=== PATIENT | female | born 1960 | race Caucasian/White ===

== ENCOUNTER 2024-06-13 14:21 | Outpatient (REF) | payer OTHER, MEDICAID, SELFPAY ==
[2024-06-13 20:21] LABS: ALT 18 U/L (14-59); AST 23 U/L (15-37); Albumin 3.3 g/dL (3.4-5.0); Alkaline Phosphatase 113 U/L (46-116); Anion Gap 5.5 mmol/L (3-11); BUN 14 mg/dL (7-18); CO2 26.5 mmol/L (21.0-32.0); CREATININE 1.4 mg/dL (0.55-1.02); Calcium 8.9 mg/dL (8.5-10.1); Chloride 104 mmol/L (98-107); Estimated GFR 42.27 (mL/min/1.73m2); Glucose 89 mg/dL (74-106); Magnesium 1.7 mg/dL (1.8-2.4); Sodium 136 mmol/L (136-145); TSH (W/Ref FT4) 3.84 uIU/mL (0.36-3.74); Total Protein 6.9 g/dL (6.4-8.2)
[2024-06-13 21:04] LABS: FREE T4 1.11 ng/dL (0.76-1.46)
[2024-06-13 21:08] LABS: Hemoglobin A1C 5.8 % (<5.7)
[2024-06-13 21:54] LABS: Abs Immature Grans 0.01 10^3/uL (0.0-0.06); Absolute Basophil Count 0.03 10^3/uL (0.0-0.2); Absolute Eosinophil Count 0.01 10^3/uL (0.0-0.7); Absolute Lymphocyte Count 0.43 10^3/uL (1.2-3.4); Absolute Monocyte Count 0.41 10^3/uL (0.1-0.8); Absolute Neutrophil Count 2.89 10^3/uL (1.2-6.7); Basophils % 0.8 %; Eosinophils % 0.3 %; HCT 38.8 % (36.0-46.0); HGB 12.7 g/dL (11.2-15.7); Immature Grans % 0.3 %; Lymphocytes % 11.4 %; MCH 29.3 pg (27.0-33.0); MCHC 32.7 % (32.0-36.0); MCV 89 fL (80-95); MPV 10.8 fL (8.0-11.0); Monocytes % 10.8 %; Neutrophils % 76.4 %; RBC 4.34 10^6/uL (3.93-5.22); RDW-SD 50.1 fL; WBC 3.78 10^3/uL (4.4-10.8)
[2024-06-13 22:11] LABS: Platelet Count 85 10^3/uL (130-400)
== END 2024-06-13 14:22 | disposition home or self-care (01) ==
LOC: NCHCN 14:21
PROVIDERS: Visit Provider Physician Assistant
DX: E03.9 Hypothyroidism, unspecified (principal); R73.03 Prediabetes; K74.60 Unspecified cirrhosis of liver
CPT/HCPCS: 80053; 83036; 83735; 84439; 84443; 85025

== ENCOUNTER 2024-11-22 16:45 | Outpatient (REF) | payer OTHER, MEDICAID, SELFPAY ==
--- OUTSIDE RECORDS SUMMARY | 2024-11-22 16:47 | XMS_ITS | Clinical Summary ---
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 Last Filed Vital Signs Vital Sign Reading Time Taken Comments Blood Pressure 107/74 05/10/2024 1430 EDT Pulse 89 05/10/2024 1159 EDT Temperature 36.9 ??C (98.4 ??F) 05/10/2024 1325 EDT Respiratory Rate 18 05/10/2024 1430 EDT Oxygen Saturation 95% 05/10/2024 1430 EDT Inhaled Oxygen Concentration - - Weight 95.3 kg (210 lb) 05/10/2024 1159 EDT Height 167.6 cm (5' 6) 05/10/2024 1159 EDT Body Mass Index 33.89 05/10/2024 1159 EDT Plan of Treatment Upcoming Encounters Date Type Department Care Team (Late st Contact Info) Description 01/04/2025 13:00 EST Office Visit [facility] Ophthalmology - [address] [phone] Gagandeep Rome MD [address] [place] [address] 5 [place] [phone] 02/11/2025 13:30 EDT Telemedicine [facility] Hematology & Oncology [address] [phone] Dana Padilla MD [address] [place] [address] 2 [place] [phone] Health Maintenance Due Date Last Done Comments Asthma Action Plan 1960 Copd Action Plan 1960 Lung Function Test (Spirometry) 1960 Advance Directive 1978 Preventive Care Visit 1978 Breast Cancer Screening 2000 Cologuard (Colon Cancer Screening) 2005 Colonoscopy (Colon Cancer Screening) 2005 Colorectal Cancer Screening 2005 FIT Test (Colon Cancer Screening) 2005 Sigmoidoscopy (Colon Cancer Screening) 2005 Pap Smear (Cervical Cancer Screening) 12/15/2009 12/15/2006 Cervical Cancer Screening 12/15/2011 HPV/Cotest (Cervical Cancer Screening) 12/15/2011 12/15/2006 Pill Count 02/19/2022 Depression Screening 02/25/2024 02/24/2023, 02/16/2023, 11/10/2020, Additional history exists Social Determinants Of Healt h (SDOH) 04/29/2024 04/29/2023, 02/24/2023 Prescription Agreement 07/13/2024 , 06/25/2022, 04/29/2021 Influenza Immunization (Adul t) (#1) 2024 07/29/2023, 09/04/2022, 08/17/2021, Additional history exists Current Opioid Misuse Measurement 09/13/2024 023, 08/11/2022 Functional Assessment 09/13/2024 09/13/2023, 022 Opioid Informed Consent 09/13/2024 09/13/20 23, 07/15/2023, 07/13/2023, Additional history exists Review Of Systems Adverse Effects 09/13/2024 023, 08/11/2022 [place] Prescription Monitor ing System 09/14/2024 09/14/2023, 09/17/2022, 10/08/2021, Additional history exists Urine Drug Screen 01/31/2025 02/01/2024, , 12/21/2023, Additional history exists Pneumococcal Immunization (4 of 4 - PPSV23 or PCV20) 2025 09/03/2019, 07/18/2015, 06/05/2009, Additional history exists Lipid Profile Screening (Cholesterol) 04/16/2027 04/16/2022 Tetanus (Adult) Immunization 03/17/2029, 02/19/2019, 11/21/1998 HIV Screening Completed 02/21/2017 Hepatitis C Screen Completed 05/19/2018, 0 02/23/2017, 02/21/2017, Additional history exists Pertussis (Adult) Immunization Discontinued 02/19/2019 Shingles Immunization Completed 09/17/2022, 019 RSV Immunization ( o r 60+ Years) Completed 11/11/2023 COVID-19 Vaccine Completed 08/22/2024, , 05/20/2022, Additional history exists Medical Devices Implanted Type Area Box Sealing Machine Feeder Device Identifier Shelf Expiration Date Model / Serial / Lot Coil Embo Non Coated Pltn Nitnl Detachable 14enw20ve Elisha [id number] - [id number] Implanted:Qty: 1 on 09/28/[address] [facility] Coil Implant N/A: Abdomen PENUMBRA [id number] 04/28/2029 [id number] / / [id number] Coil Embo Coated Pt Helical 44tem67hj Interlock [id number] - [id number] Implanted:Qty: 1 on 09/28/[address] [facility] Coil Implant N/A: Abdomen Nov[employer] [id number] 08/27/2022 [id number] 20 / / [id number] Coil Embo Non Coated Pltn Nitnl Detachable 65xam31zf Elisha [id number] - [id number] Implanted:Qty: 1 on 09/28/[address] [facility] Coil Implant N/A: Abdomen PENUMBRA [id number] 06/03/2029 [id number] 0 / / [id number] Particle Embolization 300-500um Embosphere V420gh - [id number] Implanted:Qty: 1 on 09/28/[address] [facility] Embolic N/A: Abdomen [employer] [id number] 11/29/2023 V420GH / / [id number] Particle Embolization 300-500um Embosphere V420gh - [id number] Implanted:Qty: 1 on 09/28/[address] [facility] Embolic N/A: Abdomen [employer] [id number] V420GH / / Particle Embolization 300-500um Embosphere V420gh - [id number] Implanted:Qty: 1 on 09/28/[address] [facility] Embolic N/A: Abdomen [employer] [id number] V420GH / / Particle Embolization 500-700um Embosphere V620gh - [id number] Implanted:Qty: 1 on 09/28/[address] [facility] Embolic N/A: Abdomen [employer] [id number] V620GH / / Plate Bone Cmprs Lckng Dvr 6x3 Hole Std Lt 2.4x54mm Va Lcp [id number] - [id number] Implanted:Qty: 1 on 03/02/2024 by Riky Butts MD at [facility] Plate Implant Left: Wrist [employer] 02.111.6 31 / / Screw Bone Fthrd Lckng 2.4x16mm Lcp [id number] - [id number] Implanted:Qty: 1 on 03/02/2024 by Riky Butts MD at [facility] Screw Implant Left: Wrist DEPUY SYN[employer]ES [employer] 02.210.1 16 / / Screw Bone Fthrd Lckng 2.4x18mm Lcp [id number] - [id number] Implanted:Qty: 1 on 03/02/2024 by Riky Butts MD at [facility] Screw Implant Left: Wrist [employer] 02.210.1 18 / / Screw Bone Cortical Slf Tpng 2.4x12mm Lcp [id number] - [id number] Implanted:Qty: 1 on 03/02/2024 by Riky Butts MD at [facility] Screw Implant Left: Wrist DEPUY SYNTHES [employer] 201.762 / / Screw Bone Cortical Slf Tpng 2.4x13mm Lcp [id number] - [id number] Implanted:Qty: 1 on 03/02/2024 by Riky Butts MD at [facility] Screw Implant Left: Wrist [employer] 201.763 / / Screw Bone Cortical Slf Tpng Fthrd 2.4x14mm Lcp [id number] - [id number] Implanted:Qty: 1 on 03/02/2024 by Riky Butts MD at [facility] Screw Implant Left: Wrist [employer] 201.764 / / Stent Ureteral Double Pigtail Tapered Tip [id number] Inlay [place] [id number] - [id number] Implanted:Qty: 1 on 12/03/2020 by Lon Ortez MD at [facility] Stent Left: Ureter [facility] [id number] 04/11/2024 [id number] / / [id number] Procedures Procedure Name Priority Date/Time Associated Diagnosis Comments XR WRIST RIGHT 3 OR MORE VIEWS Routine 10/24/2024 13:16 EST Right wrist pain FIBRINOGEN Routine 10/03/2024 12:23 EST COMPLETE BLOOD COUNT AND DIFFERENTIAL Routine 10/03/2024 12:23 EST FIBRINOGEN Routine 10/03/2024 PROTIME Routine 10/03/2024 PTT Routine 10/03/2024 COMPLETE BLOOD COUNT AND DIFFERENTIAL Routine 10/03/2024 PROFILE IRON STUDIES (INCLUDES IRON, IBC, AND FERRITIN) Routine 10/03/2024 XR SHOULDER RIGHT 2 OR MORE VIEWS Routine 09/21/2024 14:06 EDT Chronic right shoulder pain XR WRIST RIGHT 3 OR MORE VIEWS Routine 09/13/2024 14:06 EDT Right wrist pain CT OUTSIDE IMAGES CERVICAL SPINE Routine 09/10/2024 9:04 EDT MR OUTSIDE IMAGES RIGHT UPPER EXTREMITY Routine 09/08/2024 9:05 EDT XR OUTSIDE IMAGES RIGHT UPPER EXTREMITY Routine 09/06/2024 9:06 EDT XR OUTSIDE IMAGES RIGHT UPPER EXTREMITY Routine 09/06/2024 9:05 EDT XR OUTSIDE IMAGES RIGHT UPPER EXTREMITY Routine 09/06/2024 9:05 EDT POCT DRUG SCREEN, URINE Routine 02/01/2024 Encounter for drug screening Opioid dependence, uncomplicated ([facility]) LIPID PROFILE (INCLUDES CHOLESTEROL, TRIGLYCERIDES, HDL, LDL) Routine 04/16/2022 10:45 EDT Screening for lipoid disorders HCV RNA QUANT WITH REFLEX TO GENOTYPE Routine 05/19/2018 9:54 EDT HIV 1/2 ANTIGEN AND ANTIBODY, 4TH GENERATION Routine 02/21/2017 17:31 EDT HPV DETECTION, HIGH RISK TYPES Routine 12/15/2006 9:14 EST from Last 3 Months or Most Recently Relevant to Health Maintenance Results * XR WRIST RIGHT 3 OR MORE VIEWS (10/24/2024 13:16 EST) Anatomical Region Laterality Modality Upper Extremities Right Computed Radio graphy 10/24/2024 15:0 0 EST Impressions 10/24/2024 15:00 EST FINDINGS / IMPRESSION: 4 views of the right wrist show ongoing healing of the intra-articular fracture of the distal radius with similar degree of mild impaction and displacement at the fracture site compared to the prior. The bones are mildly osteopenic. Degenerative joint changes are again noted. There is residual soft tissue swelling about the wrist. [id number] Narrative 10/24/2024 15:00 EST EXAM/TECHNIQUE: 10/24/2024 1:09 PM ??XR WRIST RIGHT 3 OR MORE VIEWS 4 views ?? HISTORY: ??Distal radius fracture Resulting Agency Comment [id number] Procedure Note Jordan Manzano MD - 10/24/2024 EXAM/TECHNIQUE: 10/24/2024 1:09 PM XR WRIST RIGHT 3 OR MORE VIEWS 4 views HISTORY: Distal radius fracture IMPRESSION FINDINGS / IMPRESSION: 4 views of the right wrist show ongoing healing of the intra-articularfracture of the distal radius with similar degree of mild impaction anddisplacement at the fracture site compared to the prior. The bones aremildly osteopenic. Degenerative joint changes are again noted. There isresidual soft tissue swelling about the wrist. [id number] Riky Butts MD IMG DIAGNOSTIC IMAGING ORDERAB LES Final Result * FIBRINOGEN (10/03/2024 12:23 EST) Only the most recent of2 resultswithin the time period is included. Fibrinogen, external 229 UVN POINT OF CARE Blood VENOUS BLOOD / Unknown 10/03/2024 12:23 EST Historical Provider HEMATOLOGY & PF4 ORDERABL ES Edited Result - Final [facility] POINT OF CARE * (ABNORMAL) COMPLETE BLOOD COUNT AND DIFFERENTIAL (10/03/2024 12:23 EST) Only the most recent of2 resultswithin the time period is included. WBC, External 1.68(A) 4.0 - 11.0 EXTERNAL LAB Comment:LOW RBC, External 3.66(A) 3.85 - 5.4 EXTERNAL LAB Comment:LOW Hemoglobin, External 10.6(A) 12.0 - 16.0 % EXTERNAL LAB Comment:LOW HCT, External 33.2(A) 36.0 - 47 EXTERNAL LAB Comment:LOW MCV, External 90.7 EXTERNAL LAB MCH, External 29.0 g/dL EXTERNAL LAB MCHC, External 31.9 g/dL EXTERNAL LAB PLT, External 81(A) 130 - 430 EXTERNAL LAB Comment:LOW RDW-CV, External 14.9 EXTERNAL LAB Neutrophils, External 67.8 EXTERNAL LAB Lymphocytes, External 16.1 EXTERNAL LAB Monocytes, External 12.5 EXTERNAL LAB Eosinophils, External 3.0 EXTERNAL LAB Basophils, External 0.6 EXTERNAL LAB ABS Neutrophils, External 1.14(A) 1.5 - 7.5 EXTERNAL LAB Comment:LOW ABS Lymphs, External 0.27(A) 0.75 - 3.75 EXTERNAL LAB Comment:LOW ABS Monocytes, External 0.21(A) 0.25 - 1.0 EXTERNAL LAB Comment:LOW ABS Eosinophils, External 0.05 EXTERNAL LAB ABS Basophils, External 0.01 EXTERNAL LAB Blood VENOUS BLOOD / Unknown 10/03/2024 12:23 EST Historical Provider PACKAGES & DNA PROBE ORDE RABKIANNA Edited Result - Final Performing Organization Address [facility] Co de Phone Number EXTERNAL LAB * PROFILE IRON STUDIES (INCLUDES IRON, IBC, AND FERRITIN) (10/03/2024) Ferritin, External EXTERNAL LAB Iron, External EXTERNAL LAB TIBC, External EXTERNAL LAB Iron Saturation, External EXTERNAL LAB Blood VENOUS BLOOD / Unknown 10/03/2024 Historical Provider CHEMISTRY & BLOOD GAS ORD ERABLES Edited Result - Final Performing Organization Address [facility] Co de Phone Number EXTERNAL LAB * PTT (10/03/2024) PTT, External 28.7 EXTERNAL LAB Blood VENOUS BLOOD / Unknown 10/03/2024 Historical Provider HEMATOLOGY & PF4 ORDERABL ES Final Result Performing Organization Address [facility] de Phone Number EXTERNAL LAB * PROTIME (10/03/2024) Protime, External 11.8 EXTERNAL LAB INR, External 1.1 EXTERNAL LAB Blood VENOUS BLOOD / Unknown 10/03/2024 Result [facility] Historical Provider HEMATOLOGY & PF4 ORDERABL ES Final Result Performing Organization Address [facility] de Phone Number EXTERNAL LAB * XR SHOULDER RIGHT 2 OR MORE VIEWS (09/21/2024 14:06 EDT) Anatomical Region Laterality Modality Right Computed Radiogr aphy 10/01/2024 5:31 EST Impressions 10/01/2024 5:31 EST FINDINGS / IMPRESSION: 3 views of the right shoulder show no evidence of fracture or dislocation. There are mild to moderate degenerative changes in the glenohumeral and acromioclavicular joints. There is a small well-corticated ossific density in the superior aspect of the AC joint, this is most likely on a degenerative basis. Soft tissues are otherwise grossly unremarkable. There is osteopenia. [id number] Narrative 10/01/2024 5:31 EST EXAM/TECHNIQUE: XR SHOULDER RIGHT 2 OR MORE VIEWS ??09/21/2024 1:57 PM HISTORY: Right shoulder pain COMPARISON: Right shoulder radiographs dated January 08, 2023. Right shoulder MRI dated 03/09/2024. Resulting Agency Comment [id number] Procedure Note Nahun Castellano MD - 10/01/2024 EXAM/TECHNIQUE: XR SHOULDER RIGHT 2 OR MORE VIEWS 09/21/2024 1:57 PM HISTORY: Right shoulder pain COMPARISON: Right shoulder radiographs dated January 08, 2023. Rightshoulder MRI dated 03/09/2024. IMPRESSION FINDINGS / IMPRESSION: 3 views of the right shoulder show no evidence of fracture or dislocation.There are mild to moderate degenerative changes in the glenohumeral andacromioclavicular joints. There is a small well-corticated ossific densityin the superior aspect of the AC joint, this is most likely on adegenerative basis. Soft tissues are otherwise grossly unremarkable. Thereis osteopenia. [id number] us Inderjit Ansari MD IMG DIAGNOSTIC IMAGING OR DERABLES Final Result * XR WRIST RIGHT 3 OR MORE VIEWS (09/13/2024 14:06 EDT) Anatomical Region Laterality Modality Upper Extremities Right Computed Radio graphy 09/14/2024 7:34 EDT Impressions 09/14/2024 7:34 EDT FINDINGS / IMPRESSION: 3 views of the right wrist obtained following closed reduction and splinting with a fiberglass cast. The minimally impacted intra-articular distal radial fracture is unchanged in alignment. [id number] Narrative 09/14/2024 7:34 EDT EXAM/TECHNIQUE: XR WRIST RIGHT 3 OR MORE VIEWS ??09/13/2024 1:56 PM HISTORY: ?? right wrist pain COMPARISON: Radiograph 09/06/2024. Resulting Agency Comment [id number] Procedure Note Dom Mcintyre DO - 09/14/2024 EXAM/TECHNIQUE: XR WRIST RIGHT 3 OR MORE VIEWS 09/13/2024 1:56 PM HISTORY: right wrist pain COMPARISON: Radiograph 09/06/2024. IMPRESSION FINDINGS / IMPRESSION: 3 views of the right wrist obtained following closed reduction andsplinting with a fiberglass cast. The minimally impacted intra-articulardistal radial fracture is unchanged in alignment. [id number] us Riky Butts MD IMG DIAGNOSTIC IMAGING ORDERAB LES Final Result * CT OUTSIDE IMAGES CERVICAL SPINE (09/10/2024 9:04 EDT) Narrative 09/11/2024 9:04 EDT This is a non-reportable exam. us External Imaging IMG OTHER IMAGING ORDERABLES Fi nal Result * MR OUTSIDE IMAGES RIGHT UPPER EXTREMITY (09/08/2024 9:05 EDT) Narrative 09/11/2024 9:05 EDT This is a non-reportable exam. us External Imaging IMG OTHER IMAGING ORDERABLES Fi nal Result * XR OUTSIDE IMAGES RIGHT UPPER EXTREMITY (09/06/2024 9:06 EDT) Narrative 09/11/2024 9:06 EDT This is a non-reportable exam. us External Imaging IMG OTHER IMAGING ORDERABLES Fi nal Result * XR OUTSIDE IMAGES RIGHT UPPER EXTREMITY (09/06/2024 9:05 EDT) Narrative 09/11/2024 9:06 EDT This is a non-reportable exam. us External Imaging IMG OTHER IMAGING ORDERABLES Fi nal Result * XR OUTSIDE IMAGES RIGHT UPPER EXTREMITY (09/06/2024 9:05 EDT) Narrative 09/11/2024 9:05 EDT This is a non-reportable exam. us External Imaging IMG OTHER IMAGING ORDERABLES Fi nal Result * (ABNORMAL) POCT DRUG SCREEN, URINE (02/01/2024) Temperature, POC 92 ??F 90 - 100 ??F [facility] POINT OF CARE Creatinine, POC 200 mg/dL 20-200 mg/dL [facility] POINT OF CARE Specific [place], POC 1.025 1.005 - 1.025 [facility] POINT OF CARE pH, POC 5.0 4.0 - 9.0 [facility] POIN T OF CARE Amphetamine, POC Negative . [facility] POINT OF CARE Barbiturates, POC Negative . [facility] POINT OF CARE Buprenorphine , POC Negative . [facility] POINT OF CARE Benzodiazapen e, POC Negative . [facility] POINT OF CARE Cocaine, POC Negative . [facility] P OINT OF CARE MDMA, POC Negative . [facility] Methamphetami ne, POC Negative . [facility] POINT OF CARE Opiates 300, POC Negative . [facility] POINT OF CARE Methadone, POC Negative . [facility] POINT OF CARE Oxycodone, POC Negative . [facility] POINT OF CARE PCP, POC Negative . [facility] POIN T OF CARE THC, POC Preliminary positive, Result should be confirmed if clinically indicated(A) . [facility] POINT OF CARE Urine URINE / Unknown 02/01/2024 us Emigdio Veronica MD POINT OF CARE TEST ORDER YANN Final Result [facility] POINT OF CARE * LIPID PROFILE (INCLUDES CHOLESTEROL, TRIGLYCERIDES, HDL, LDL) (04/16/2022 10:45 EDT) Cholesterol 143 <200 mg/dL 04/16/2022 12:14 EDT [facility] Comment:Note that therapeuti c goals will differ between patients based on cardiac risk factors and current medical therapy. HDL 59 >=50 mg/dL 04/16/2022 12:14 EDT [facility] Comment:Note that therapeuti c goals will differ between patients based on cardiac risk factors and current medical therapy. LDL, Calculated 72 <160 mg/dL 12:14 T [facility] Comment:Note that therapeuti c goals will differ between patients based on cardiac risk factors and current medical therapy. Triglyceride 59 <=150 mg/dL 04/16/2022 12:14 EDT [facility] Comment:Note that therapeuti c goals will differ between patients based on cardiac risk factors and current medical therapy. Chol/HDL Ratio 2.4 See Note 04/16/2022 12:14 T [facility] Comment:No reference range h as been established for CHOL/HDL ratio. Non HDL Cholesterol 84 <160 mg/dL 04/16/2022 12:14 EDT [facility] Comment:Note that therapeuti c goals will differ between patients based on cardiac risk factors and current medical therapy. Blood VENOUS BLOOD / Unknown Venipuncture / Unknown 04/16/2022 10:45 EDT 04/16/2022 10:45 EDT us Emigdio Veronica MD CHEMISTRY & BLOOD GAS OR DERABLES Final Result Performing Organization Address [facility] Co de Phone Number [facility] [address] [place] [address] * HCV RNA QUANT WITH REFLEX TO GENOTYPE (05/19/2018 9:54 EDT) [facility] HCV RNA Detect Quant Undetected Undetected IU/mL 05/23/2018 14:41 EDT [facility] Comment: Reference Range: ??Undetected The quantification range of this assay is 15 IU/mL to 100,000,000 IU/mL. Testing was performed by the Pamela Ampliprep/Pamela TaqMan HCV v2.0 ([employer] BLOOD SPECIMEN / Unknown 05/19/2018 9:54 EDT 05/19/2018 19:49 EDT us Segundo Weems MD CHEMISTRY & BLOOD GAS ORDERAB LES Final Result Performing Organization Address [facility] Co de Phone Number [facility] [address] [place] [address] * HIV 1/2 ANTIBODY (02/21/2017 17:31 EDT) [facility] HIV 1/2 Antibody Negative 02/23/20 17 12:51 EDT [facility] Comment: If acute HIV-1 infection is suspected in a high risk patient, submit plasma specimen for HIV-1 RNA quantification test. Reference Range: ??Negative Assayed utilizing Goven[employer] Green chemiluminescent technology. BLOOD SPECIMEN / Unknown 02/21/2017 17:31 EDT 02/21/2017 17:46 EDT us Araceli Fountain PA-C IMMUNOLOGY AND SEROLOGY DEMI CARDENAS Final Result Performing Organization Address [facility] Co de Phone Number [facility] [address] [place] [address] * HUMAN PAPILLOMA VIRUS DNA TEST (12/15/2006 9:14 EST) Specimen Description Cervix, ThinPrep vial [facility] Result Negative for HPV types 16, 18, 31, 33, 35, 39, 45, 51, 52, 56, 58, 59, and 68. [facility] Report Status Final [id number] [facility] 12/15/2006 9:14 EST 12/20/2006 9:14 EST Wayne Rivero MD MICROBIOLOGY - GENERAL ORDERABLE S Final Result Performing Organization Address [facility] Co de Phone Number [facility] [address] [place] [address] from Last 3 Months or Most Recently Relevant to Health Maintenance Insurance [place]ICAID [place] [employer] [place]IC[place] [id number] [place] [phone] Advance Directives For more information, please contact: [phone] * Full Code (Latest Code Status on File) Date Activated Date Inactivated Comments 03/02/2024 11:42 03/03/2024 6:11 Question Answer Comments When the patient has NO PULSE: Full Code / CPR Who Made the Decision? Default/Not Discussed * Limitation of Treatment Date Activated Date Inactivated Comments 09/08/2023 2:28 09/09/2023 17:23 Question Answer Comments When the patient has NO PULSE: DNR When the patient HAS A PULSE and is in respiratory distress/failure: Trial Period Trial period of (choose one or both): intubation non - invasive ventilation Who Made the Decision? Patient * Full Code Date Activated Date Inactivated Comments 04/29/2023 8:59 05/03/2023 15:30 Question Answer Comments When the patient has NO PULSE: Full Code / CPR Who Made the Decision? Patient * Full Code Date Activated Date Inactivated Comments 12/14/2022 11:56 12/18/2022 14:40 Question Answer Comments When the patient has NO PULSE: Full Code / CPR Who Made the Decision? Patient * Full Code Date Activated Date Inactivated Comments 06/15/2022 23:33 06/18/2022 17:32 Question Answer Comments When the patient has NO PULSE: Full Code / CPR Who Made the Decision? Default/Not Discussed Care Teams First Mate Relationship Specialty Start Date End Date Mirna Guerrero PA [address] [place] [id number] PCP - General 09/12/24
--- OUTSIDE RECORDS SUMMARY | 2024-11-22 16:48 | XMS_ITS | Encounter Summary ---
Author Organization [facility] Address [address] [place] [address] Care Team Providers Care Mechanical Service Representative Name Role Phone Mirna Guerrero Primary Care Provider + Reason for Visit * Reason Onset Date Comments Appointment Related 09/19/2024 Encounter Details Date Type Department Care Team (Late st Contact Info) Description 09/19/2024 Telephone [facility] Cancer Center Hematology & Oncology - [facility] [address] [place] [address] Loraine Hu PA-C 111 [facility], Level 2 [place] [address] Appointment Related Social History Tobacco Use Types Packs/Day Years Used Date Smoking Tobacco: Some Days Cigarettes 0.3 35 Started: 12/22/2023 Smokeless Tobacco: Never Alcohol Use Standard Drinks/Week Comments No 0 [...] 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 Answer Date of Assessment Author No 09/14/2023 15:57 EDT Lala Sullivan, KENN * Are you blind or do you have serious difficulty seeing, even when wearing glasses? Answer Date of Assessment Author No 09/08/2023 17:08 Aj Hall, RN * Do you have serious difficulty walking or climbing stairs? (5 years old or older) Answer Date of Assessment Author Yes 09/08/2023 17:08 EDAj Alejandre RN * Do you have difficulty dressing or bathing? (5 years old or older) Answer Date of Assessment Author No 09/08/2023 17:08 EDT Aj Tucker RN * Because of a physical, mental, or emotional condition, do you have difficulty doing errands alone such as visiting a doctor's office or shopping? (15 years old or older) Answer Date of Assessment Author No 09/08/2023 17:08 EDT Aj Tucker RN documented as of this encounter Mental Status * Because of a physical, mental, or emotional condition, do you have serious difficulty concentrating, remembering, or making decisions? (5 years old or older) Answer Entry Date Author No 09/08/2023 17:08 EDT Aj Tucker RN documented in this encounter Miscellaneous Notes * Telephone Encounter - Heike Bowie - 09/19/2024 0928 EDT Sw Pt to let he know that I have cx her November appt w/ RS. documented in this encounter Plan of Treatment Upcoming Encounters Date Type Department Care Team (Late st Contact Info) Description 01/04/2025 13:00 EST Office Visit [facility] Ophthalmology - [address] [phone] Gagandeep Rome MD [address] [place] [address], [facility] 5 [place] [phone] 02/11/2025 13:30 EDT Telemedicine [facility] Hematology & Oncology - [address] [phone] Dana Padilla MD [address] [place] [address], [facility] 2 [place] [phone] documented as of this encounter Visit Diagnoses Not on filedocumented in this encounter Care Teams Mechanical Service Representative Relationship Specialty Start Date End Date Mirna Guerrero PA [address] [place] [address] PCP - General 09/12/24 documented as of this encounter
--- OUTSIDE RECORDS SUMMARY | 2024-11-22 16:48 | XMS_ITS | Encounter Summary ---
Author Organization [facility] Address [address] [place] [address] Care Team Providers Care Photoradio Operator Name Role Phone Mirna Guerrero Primary Care Provider + Reason for Visit * Reason Onset Date Comments Bleeding/Bruising 09/27/2024 Encounter Details Date Type Department Care Team (Late st Contact Info) Description 09/27/2024 Telephone [facility] Cancer Center Hematology & Oncology - [address] [phone] Dana Padilla MD 111 [facility], Level 2 [place] [address] Bleeding/Bruising Social History Tobacco Use Types Packs/Day Years [...] place to sleep or slept in a chcf (including now)? 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 Answer Date of Assessment Author No 09/14/2023 15:57 EDT aLla Sullivan, KENN * Are you blind or do you have serious difficulty seeing, even when wearing glasses? Answer Date of Assessment Author No 09/08/2023 17:08 Aj Hall, RN * Do you have serious difficulty walking or climbing stairs? (5 years old or older) Answer Date of Assessment Author Yes 09/08/2023 17:08 EDT Eiler, Aj ua, RN * Do you have difficulty dressing or bathing? (5 years old or older) Answer Date of Assessment Author No 09/08/2023 17:08 EDT Aj Tucker RN * Because of a physical, mental, or emotional condition, do you have difficulty doing errands alone such as visiting a doctor's office or shopping? (15 years old or older) Answer Date of Assessment Author No 09/08/2023 17:08 EDAj Alejandre RN documented as of this encounter Mental Status * Because of a physical, mental, or emotional condition, do you have serious difficulty concentrating, remembering, or making decisions? (5 years old or older) Answer Entry Date Author No 09/08/2023 17:08 Aj Hall RN documented in this encounter Miscellaneous Notes * Telephone Encounter - Dolores Kurtz RN - 09/27/2024 1617 EST Spoke to Tara. She noticed that her lovenox injection from this morning bled for about 6 hours. Her noticed blood on her undershirt and when she went to take it off, she godd wet blood on her hands. She wanted to let us know because she has been on lovenox for years and hasn't had this happen. This nurse will notify Dr. Padilla and get back to her. Tara verbalized understanding. * Telephone Encounter - Andrew Crocker - 09/27/2024 0959 EST HemOnc Incoming Call Active Symptoms/Disease Management Call Reason: PCP advised patient to call; she state lowered Lovenox injection to 80mg once a day; she gave herself injection and started bleeding for about 6 hours; No longer bleeding Also states platelet count was in 50's last it it was checked Next Appointment: 02/11/2025 Last Office Visit: 03/19/2024 Dana Padilla MD Last Telehealth Encounter: 09/12/2024 Loraine Hu PA-C Send ROUTINE Priority to Hem/Onc Nurse Edin Crocker 09/27/2024 10:01 documented in this encounter Plan of Treatment Upcoming Encounters Date Type Department Care Team (Late st Contact Info) Description 01/04/2025 13:00 EST Office Visit [facility] Ophthalmology - [address] [phone] Gagandeep Rome MD [address] [place] [address], [facility] 5 [place] [phone] 02/11/2025 13:30 EDT Telemedicine [facility] Hematology & Oncology - [address] [address] Dana Padilla MD [address] [place] [address], [facility] 2 [place] [phone] documented as of this encounter Visit Diagnoses Not on filedocumented in this encounter Care Teams Photoradio Operator Relationship Specialty Start Date End Date Mirna Guerrero PA [address] [place] [id number] PCP - General 09/12/24 documented as of this encounter
--- OUTSIDE RECORDS SUMMARY | 2024-11-22 16:48 | XMS_ITS | Encounter Summary ---
Author Organization [facility] Address [address] [place] [address] Care Team Providers Care Maint Mechanic Name Role Phone Mirna Guerrero Primary Care Provider + Reason for Visit * Reason Onset Date Comments Update 09/14/2024 Encounter Details Date Type Department Care Team (Late st Contact Info) Description 09/14/2024 Telephone [facility] Cancer Center Hematology & Oncology - [facility] [address] [place] [address] Loraine Hu PA-C 111 [facility], Level 2 [place] [address] Update Social History Tobacco Use Types Packs/Day Years [...] place to sleep or slept in a fpc (including now)? 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 Answer Date of Assessment Author No 09/14/2023 15:57 Lala Haynes, KENN * Are you blind or do you have serious difficulty seeing, even when wearing glasses? Answer Date of Assessment Author No 09/08/2023 17:08 Aj Hall, RN * Do you have serious difficulty walking or climbing stairs? (5 years old or older) Answer Date of Assessment Author Yes 09/08/2023 17:08 Aj Hall RN * Do you have difficulty dressing [...] encounter Miscellaneous Notes * Telephone Encounter - Bennett Santiago - 09/14/2024 0195 EDT Patient did not need wrist surgery she will be in a cast until October, patient also has Ortho Surgeon appt for shoulder on Tuesday 09/18, she will know more after this appt and will update so the doctor is away when to take her off Levonox documented in this encounter Plan of Treatment Upcoming Encounters Date Type Department Care Team (Late st Contact Info) Description 01/04/2025 13:00 EST [facility] Visit [facility] - [address] [phone] Gagandeep Rome MD [address] [place] [address], [facility] [place] [facility] 5 [place] [phone] 02/11/2025 13:30 EDT Telemedicine [facility] Hematology & Oncology - [address] [phone] Dana Padilla MD [address] [place] [address], Level 2 [place] [phone] documented as of this encounter Visit Diagnoses Not on filedocumented in this encounter Care Teams Maint Mechanic Relationship Specialty Start Date End Date Mirna Guerrero PA [address] [place] [address] PCP - General 09/12/24 documented as of this encounter
--- OUTSIDE RECORDS SUMMARY | 2024-11-22 16:48 | XMS_ITS | Encounter Summary ---
Author Organization [facility] Address [address] [place] [address] Care Team Providers Care Associate Director Of Sales Name Role Phone Mirna Guerrero Primary Care Provider + Reason for Visit * Reason Onset Date Comments Imaging 10/24/2024 Encounter Details Date Type Department Care Team (Late st Contact Info) Description 10/24/2024 Orders Only [facility] Hand & Upper Extremity Program - [address] [address] Riky Butts MD [address] [place] [phone] Right wrist pain (Primary Dx) Social History Tobacco Use Types Packs/Day Years [...] place to sleep or slept in a alf (including now)? 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 Answer Date of Assessment Author No 09/14/2023 15:57 Lala Haynes RN * Are you blind or do you have serious difficulty seeing, even when wearing glasses? Answer Date of Assessment Author No 09/08/2023 17:08 Aj Hall RN * Do you have serious difficulty [...] Aj Tucker RN documented in this encounter Plan of Treatment Upcoming Encounters Date Type Department Care Team (Late st Contact Info) Description 01/04/2025 13:00 EST Office Visit [facility] Ophthalmology - [address] [phone] Gagandeep Rome MD [address] [place] [address], [facility] 5 [place] [phone] 02/11/2025 13:30 EDT Telemedicine [facility] Hematology & Oncology - [address] [phone] Dana Padilla MD [address] [place] [address], [facility] 2 [place] [phone] documented as of this encounter Results * XR WRIST RIGHT 3 OR [...] residual soft tissue swelling about the wrist. [id number] Narrative 10/24/2024 15:00 EST EXAM/TECHNIQUE: 10/24/2024 1:09 PM ??XR WRIST RIGHT 3 OR MORE VIEWS 4 views ?? HISTORY: ??Distal radius fracture Resulting Agency Comment [id number] Procedure Note Jordan Manzano MD - 10/24/2024 [...] isresidual soft tissue swelling about the wrist. [id number] us Riky Butts MD IMG DIAGNOSTIC IMAGING ORDERAB LES Final Result documented in this encounter Visit Diagnoses Diagnosis Right wrist pain- Primary Pain in joint, forearm Right wrist pain Pain in joint, forearm documented in this encounter Care Teams Associate Director Of Sales Relationship Specialty Start Date End Date Mirna Guerrero PA [address] [place] [id number] PCP - General 09/12/24 documented as of this encounter
--- OUTSIDE RECORDS SUMMARY | 2024-11-22 16:48 | XMS_ITS | Encounter Summary ---
Author Organization [facility] Address [address] [place] [address] Care Team Providers Care Oil Dipper Name Role Phone Mirna Guerrero Primary Care Provider + Reason for Visit * Reason Onset Date Comments Critical Value 10/03/2024 Encounter Details Date Type Department Care Team (Late st Contact Info) Description 10/03/2024 Telephone [facility] Cancer Center Hematology & Oncology - [facility] [address] [place] [address] Dana Padilla MD 111 [facility] [place], [facility] 2 [place] [address] Critical Value Social History Tobacco Use Types Packs/Day Years [...] place to sleep or slept in a jail (including now)? 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 on file Not [...] * Telephone Encounter - Bennett Santiago - 10/03/2024 1325 EST Non Clinical Staff notified with Critical Results Ordering Provider: Dana Padilla Date and Time Test was Performed: 10/03/24 12:46pm Results: WBC 1.68 Result Read Back and Verified: yes Nursing/Provider Notified: Nursing/Provider Name: Arlette Barger Date: 10/03/24 Time: 1:27 PM documented in this encounter Plan of Treatment Upcoming Encounters Date Type Department Care Team (Late st Contact Info) Description 01/04/2025 13:00 EST Office Visit [facility] Ophthalmology - [address] [phone] Gagandeep Rome MD [address] [place] [address] 5 [place] [phone] 02/11/2025 13:30 EDT Telemedicine [facility] Hematology & Oncology [address] [phone] Dana Padilla MD [address] [place] [address], Level 2 [place] [phone] documented as of this encounter Visit Diagnoses Not on filedocumented in this encounter Care Teams Oil Dipper Relationship Specialty Start Date End Date Mirna Guerrero PA [address] [place] [phone] PCP - General 09/12/24 documented as of this encounter
--- OUTSIDE RECORDS SUMMARY | 2024-11-22 16:48 | XMS_ITS | Encounter Summary ---
Author Organization [facility] Address [address] [place] [address] Care Team Providers Care Director Pharmacovigilance Name Role Phone Mirna Guerrero Primary Care Provider + Reason for Visit * Reason Onset Date Comments Appointment Related 09/18/2024 Encounter Details Date Type Department Care Team (Late st Contact Info) Description 09/18/2024 Telephone [facility] Cancer Center Hematology & Oncology - [facility] [address] [place] [address] Loraine Hu PA-C 111 [facility], Level 2 [place] [address] Appointment Related Social History Tobacco [...] place to sleep or slept in a long term (including now)? 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 documented in this encounter Plan of Treatment Upcoming Encounters Date Type Department Care Team (Late st Contact Info) Description 01/04/2025 13:00 EST Office Visit [facility] Ophthalmology - [address] [phone] Gagandeep Rome MD [address] [place] [address], [facility] 5 [place] [address] 02/11/2025 13:30 EDT Telemedicine [facility] Hematology & Oncology [address] [phone] Daan Padilla MD [address] [place] [address], [facility] 2 [place] [address] documented as of this encounter Visit Diagnoses Not on filedocumented in this encounter Care Teams Director Pharmacovigilance Relationship Specialty Start Date End Date Mirna Guerrero PA [address] [place] [address] PCP - General 09/12/24 documented as of this encounter
--- OUTSIDE RECORDS SUMMARY | 2024-11-22 16:48 | XMS_ITS | Encounter Summary ---
Author Organization [facility] Address [address] [place] [address] Care Team Providers Care Barrel Filler Head Name Role Phone Mirna Guerrero Primary Care Provider + Reason for Referral * Radiology Services (Routine/Next Available) - Authorization Not Required Specialty Diagnoses / Procedures Referred By Contac t Referred To Contact Diagnoses Chronic right shoulder pain Procedures XR SHOULDER RIGHT 2 OR MORE VIEWS Inderjit Ansari MD [address] [place] [phone] Phone: tel: fax: [facility] Referral ID Status Reason Start Date Expiration Date Visits Requested Visits Authorized [id number] Authorization Not Required 09/21/2024 1 1 Reason for Visit * Radiology Services (Routine/Next Available) - Authorization Not Required Specialty Diagnoses / Procedures Referred By Contac t Referred To Contact Diagnoses Chronic right shoulder pain Procedures XR SHOULDER RIGHT 2 OR MORE VIEWS Inderjit Ansari MD [address] [place] [phone] Phone: tel: fax: [facility] Referral ID Status Reason Start Date Expiration Date Visits Requested Visits Authorized [id number] Authorization Not Required 09/21/2024 1 1 Encounter Details Date Type Department Care Team (Latest Contact Info) Description 09/21/2024 13:35 EDT - 09/21/2024 23:59 EDT Hospital Encounter [facility] [address] [place], [place] [phone] Chronic right shoulder pain Discharge Disposition: Home or Self Care Social History Tobacco Use Types Packs/Day Years [...] 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 (15 years old or older) Answer Date of Assessment Author No 09/08/2023 17:08 Aj Hall RN documented as of this encounter Mental Status * Because of a physical, mental, or emotional condition, do you have serious difficulty concentrating, remembering, or making decisions? (5 years old or older) Answer Entry Date Author No 09/08/2023 17:08 Aj Hall RN documented in this encounter Medications at Time of Discharge albuterol 90 mcg/actuation inhaler Inhale 1-2 Puffs as directed every 4 hours as needed for Wheezing. 1 Each 1 08/12/2023 budesonide-formot gregg HFA (SYMBICORT) 160-4.5 mcg/actuation HFA aerosol inhaler inhaler Inhale 1 Puff as directed 2 times daily. diclofenac sodium gel Apply 2 g topically 2 times daily as needed for Pain (Knee pain). 50 g 1 06/25/2022 enoxaparin (LOVENOX) 80 mg/0.8 mL injection Inject 80 mg into the skin daily. 24 mL 5 09/14/2024 furosemide (LASIX) 20 mg tablet TAKE 3 TABLETS EVERY DAY. IF FLUID IN LEGS IS WELL CONTROLLED THEN CUT DOWN TO 2 EVERY DAY. 270 Tablet 1 11/16/2023 gabapentin (NEURONTIN) 300 mg capsule Take two capsules in the AM, one capsule in the afternoon and two capsules in the evening 450 Capsule 1 11/17/2023 INCRUSE ELLIPTA 62.5 mcg/actuationIndi cations:Chronic obstructive pulmonary disease, unspecified COPD type (HCC-CMS) INHALE 1 PUFF BY MOUTH DIRECTED DAILY 30 Each 06/23/2022 lactulose (CHRONULAC) 10 gram/15 mL solution TAKE 15-30ML BY MOUTH DAILY NEEDED (CONSTIPATION. TARGET GOAL OF TWO BOWEL MOVEMENTS DAILY). 2838 mL 1 01/27/2023 levothyroxine (SYNTHROID) 25 mcg tablet TAKE 1 TABLET BY MOUTH EVERY DAY 90 Tablet 3 12/19/2023 lidocaine 5 % (LIDODERM) 5 % patch Place 1 Patch onto the skin daily. Remove after 12 hours 30 Patch 1 12/21/2023 naloxone (NARCAN) 4 mg/actuation nasal spray 0.1 mL by nasal route as needed for Opioid Reversal. Repeat every 2-3 minutes if not effective and overdose is suspected. (spray is harmless in excess). 1 Each 1 11/11/2021 ondansetron (ZOFRAN) 4 mg tablet TAKE 1 TABLET BY MOUTH EVERY 8 HOURS NEEDED FOR NAUSEA 90 Tablet 08/31/2023 oxyCODONE (ROXICODONE) 5 mg immediate release tablet Take 1 Tablet by mouth 4 times daily. OXYGEN-AIR DELIVERY SYSTEMS MISCIndications:2 L @ night via nC 2 L by misc (non-drug; combo route) route at bedtime. spironolactone (ALDACTONE) 100 mg tablet Take 0.5 Tablets by mouth daily. 06/12/2023 sucralfate (CARAFATE) 1 gram tablet Take 1 Tablet by mouth 4 times daily. 120 Tablet 3 12/21/2023 traZODone (DESYREL) 100 mg tablet Take 1 Tablet by mouth at bedtime. 30 Tablet 1 02/22/2024 venlafaxine (EFFEXOR-XR) 150 mg XR capsule TAKE 1 CAPSULE BY MOUTH DAILY. (TOTAL DAILY DOSE OF THIS MEDICATION IS 150 MG). 90 Capsule 3 02/14/2024 documented as of this encounter Discharge Disposition Disposition Code Departure Means Destination Home or Self Care documented in this encounter Plan of Treatment Upcoming Encounters Date Type Department Care Team (Late st Contact Info) Description 01/04/2025 13:00 EST Office Visit [facility] Ophthalmology - [address] [phone] Gagandeep Rome MD [address] [place] [address], [facility] 5 [place] [phone] 02/11/2025 13:30 EDT Telemedicine [facility] Hematology & Oncology [address] [phone] Dana Padilla MD [address] [place] [address] 2 [place] [phone] documented as of this encounter Procedures Procedure Name Priority Date/Time Associated Diagnosis Comments XR SHOULDER RIGHT 2 OR MORE VIEWS Routine 09/21/2024 14:06 EDT Chronic right shoulder pain documented in this encounter Results * XR SHOULDER RIGHT 2 OR MORE [...] are otherwise grossly unremarkable. There is osteopenia. [id number] Narrative 10/01/2024 5:31 EST EXAM/TECHNIQUE: XR SHOULDER RIGHT 2 OR MORE VIEWS ??09/21/2024 1:57 PM HISTORY: Right shoulder pain COMPARISON: Right shoulder radiographs dated January 08, 2023. Right shoulder MRI dated 03/09/2024. Resulting Agency Comment [id number] Procedure Note Nahun Castellano MD - 10/01/2024 [...] tissues are otherwise grossly unremarkable. Thereis osteopenia. [id number] us Inderjit Ansari MD IMG DIAGNOSTIC IMAGING OR DERABLES Final Result documented in this encounter Visit Diagnoses Diagnosis Chronic right shoulder pain Pain in joint, shoulder region documented in this encounter Care Teams Barrel Filler Head Relationship Specialty Start Date End Date Mirna Guerrero PA [address] [place] [address] PCP - General 09/12/24 documented as of this encounter
--- OUTSIDE RECORDS SUMMARY | 2024-11-22 16:48 | XMS_ITS | Encounter Summary ---
Author Organization [facility] Address [address] [place] [address] Care Team Providers Care Online Trader Name Role Phone Mirna Guerrero Primary Care Provider + Reason for Visit * Reason Onset Date Comments Appointment Related 09/21/2024 Encounter Details Date Type Department Care Team (Late st Contact Info) Description 09/21/[address] [facility] Hand & Upper Extremity Program - [address] [address] Inderjit Ansari MD [address] [place] [phone] Appointment Related Social History Tobacco Use Types [...] place to sleep or slept in a senior living (including now)? 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 documented in this encounter Plan of Treatment Upcoming Encounters Date Type Department Care Team (Late st Contact Info) Description 01/04/2025 13:00 EST Office Visit [facility] Ophthalmology - [address] [phone] Gagandeep Rome MD [address] [place] [address], [facility] 5 [place] [address] 02/11/2025 13:30 EDT Telemedicine [facility] Hematology & Oncology [address] [address] Dana Padilla MD [address] [place] [address], [facility] 2 [place] [phone] documented as of this encounter Visit Diagnoses Not on filedocumented in this encounter Care Teams Online Trader Relationship Specialty Start Date End Date Mirna Guerrero PA [address] [place] [address] PCP - General 09/12/24 documented as of this encounter
--- OUTSIDE RECORDS SUMMARY | 2024-11-22 16:48 | XMS_ITS | Encounter Summary ---
Author Organization [facility] Address [address] [place] [address] Care Team Providers Care Fashion Buying Internship Name Role Phone Mirna Guerrero Primary Care Provider + Encounter Details Date Type Department Care Team (Late st Contact Info) Description 10/05/2024 Documentation Visit [facility] Hematology & Oncology - [facility] [address] [place] [address] Maritza Miller, RN [address] [place] [address] Social History Tobacco Use Types Packs/Day Years [...] Record ed How often does anyone, sam yusra family, hit, punch or physically hurt you? Never 02/24/2023 How often does anyone, inclnevin yusra family, insult, scream, curse or threaten to hurt you? 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 Not on file Not [...] Info) Description 01/04/2025 13:00 EST Office Visit [facility] Ophthalmology - [address] [phone] Gagandeep Rome MD [address] [place] [address] 5 [place] [phone] 02/11/2025 13:30 EDT Telemedicine [facility] Hematology & Oncology [address] [phone] Dana Padilla MD [address] [place] [address] 2 [place] [phone] documented as of this encounter Procedures Procedure Name Priority Date/Time Associated Diagnosis Comments PROFILE IRON STUDIES (INCLUDES IRON, IBC, AND FERRITIN) Routine 10/03/2024 PTT Routine 10/03/2024 PROTIME Routine 10/03/2024 FIBRINOGEN Routine 10/03/2024 COMPLETE BLOOD COUNT AND DIFFERENTIAL Routine 10/03/2024 documented in this encounter Results * FIBRINOGEN (10/03/2024) Fibrinogen, external 229 193 - 507 EXTERNAL LAB Blood VENOUS BLOOD / Unknown 10/03/2024 Result [facility] Provider HEMATOLOGY & PF4 ORDERABL ES Final Result EXTERNAL LAB * PROTIME (10/03/2024) Protime, External 11.8 EXTERNAL LAB INR, External 1.1 EXTERNAL LAB Blood VENOUS BLOOD / Unknown 10/03/2024 Result [facility] Provider HEMATOLOGY & PF4 ORDERABL ES Final Result Performing Organization Address City/[facility]/ZIP Co de Phone Number EXTERNAL LAB * PTT (10/03/2024) PTT, External 28.7 EXTERNAL LAB Blood VENOUS BLOOD / Unknown 10/03/2024 Result [facility] Provider HEMATOLOGY & PF4 ORDERABL ES Final Result Performing Organization Address City/[facility]/ZIP Co de Phone Number EXTERNAL LAB * (ABNORMAL) COMPLETE BLOOD COUNT AND DIFFERENTIAL (10/03/2024) WBC, External 1.68(A) 4.0 - 11.0 EXTERNAL LAB RBC, External 3.66(A) 3.85 - 5.4 EXTERNAL LAB Hemoglobin, External 10.6(A) 12.0 - 16.0 % EXTERNAL LAB HCT, External 33.2(A) 36 - 47 EXTERNAL LAB MCV, External 90.7 EXTERNAL LAB MCH, External 29.0 g/dL EXTERNAL LAB MCHC, External 31.9 g/dL EXTERNAL LAB PLT, External 81(A) 130 - 430 EXTERNAL LAB RDW-CV, External 14.9 EXTERNAL LAB Neutrophils, External 67.8 EXTERNAL LAB Lymphocytes, External 16.1 EXTERNAL LAB Monocytes, External 12.5 EXTERNAL LAB Eosinophils, External 3.0 EXTERNAL LAB Basophils, External 0.6 EXTERNAL LAB ABS Neutrophils, External 1.14(A) 1.5 - 7.5 EXTERNAL LAB ABS Lymphs, External 0.00(A) 1.5 - 7.5 EXTERNAL LAB ABS Monocytes, External 0.27(A) 0.75 - 3.75 EXTERNAL LAB ABS Eosinophils, External 0.21(A) 0.25 - 1.0 EXTERNAL LAB ABS Basophils, External 0.01 EXTERNAL LAB Blood VENOUS BLOOD / Unknown 10/03/2024 Historical Provider PACKAGES & DNA PROBE ORDE RABLES Final Result EXTERNAL LAB * PROFILE IRON STUDIES (INCLUDES IRON, IBC, AND FERRITIN) (10/03/2024) Ferritin, External EXTERNAL LAB Iron, External EXTERNAL LAB TIBC, External EXTERNAL LAB Iron Saturation, External EXTERNAL LAB Blood VENOUS BLOOD / Unknown 10/03/2024 Historical Provider CHEMISTRY & BLOOD GAS ORD ERABLES Edited Result - Final EXTERNAL LAB documented in this encounter Visit Diagnoses Not on filedocumented in this encounter Care Teams Fashion Buying Internship Relationship Specialty Start Date End Date Mirna Guerrero PA [address] [place] [id number] PCP - General 09/12/24 documented as of this encounter
--- OUTSIDE RECORDS SUMMARY | 2024-11-22 16:48 | XMS_ITS | Encounter Summary ---
Author Organization [facility] Address [address] [place] [address] Care Team Providers Care Design And Sales Consultant Name Role Phone Mirna Guerrero Primary Care Provider + Encounter Details Date Type Department Care Team (Latest Contact Info) Description 10/24/2024 12:45 EST - 10/24/2024 23:59 EST [address] Encounter [address] [facility] [address] [place] [address] Right wrist pain Discharge Disposition: Home or [...] place to sleep or slept in a longterm (including now)? No 04/29/2023 Interpersonal Safety Answer Date Record ed How often does anyone, sam yusra family, hit, punch or physically hurt you? Never 02/24/2023 How often does anyone, sam yusra family, insult, scream, curse or threaten to hurt you? 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 Not on file Not [...] No 09/08/2023 17:08 Aj Hall, RN * Because of a physical, mental, [...] Info) Description 01/04/2025 13:00 EST Office Visit [facility] Ophthalmology - [address] [phone] Gagandeep Rome MD [address] [place] [address] 5 [place] [phone] 02/11/2025 13:30 EDT Telemedicine [facility] Hematology & Oncology [address] [address] Dana Padilla MD [address] [place] [address], [facility] 2 [place] [phone] documented as of this encounter Procedures Procedure Name Priority Date/Time Associated Diagnosis Comments XR WRIST RIGHT 3 OR MORE VIEWS Routine 10/24/2024 13:16 EST Right wrist pain documented in this encounter Results * XR WRIST RIGHT [...] residual soft tissue swelling about the wrist. [id number] Narrative 10/24/2024 15:00 EST EXAM/TECHNIQUE: 10/24/2024 1:09 PM ??XR WRIST RIGHT 3 OR MORE VIEWS 4 views ?? HISTORY: ??Distal radius fracture Resulting Agency Comment [id number] Procedure Note Jordan Manzano MD - 10/24/2024 [...] isresidual soft tissue swelling about the wrist. [id number] us Riky Butts MD IMG DIAGNOSTIC IMAGING ORDERAB LES Final Result documented in this encounter Visit Diagnoses Diagnosis Right wrist pain Pain in joint, forearm documented in this encounter Care Teams Design And Sales Consultant Relationship Specialty Start Date End Date Mirna Guerrero PA [address] [place] [address] PCP - General 09/12/24 documented as of this encounter
--- OUTSIDE RECORDS SUMMARY | 2024-11-22 16:48 | XMS_ITS | Encounter Summary ---
Author Organization [facility] Address [address] [place] [address] Care Team Providers Care Lead Security Officer Name Role Phone Mirna Guerrero Primary Care Provider + Reason for Visit * Reason Comments Other - ZOOM EST/LID/1 YR F/U *needs zoom no ride to [place] Encounter Details Date Type Department Care Team (Late st Contact Info) Description 09/18/2024 15:20 EDT Telemedicine [facility] Gastroenterology - [facility] [address] [place], [place] [phone] Micheal Moseley MD PhD 111 [facility], Level [address] [place] [address] Cirrhosis, nonalcoholic (HCC-CMS) (Primary Dx) Social History Tobacco Use Types [...] place to sleep or slept in a nursing home (including now)? 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 The location of the patient : Home (where patient lives) The location of the provider: Office The following people and their roles were present for today's visit: Appointment Provider: Micheal Moseley MD PhD [employer] concept of ???Telemedicine?? has been described to the patient.? Patient hasbeen informed of the anticipated benefits and possible risks.? Patient understands the information provided regarding telemedicine, has had the opportunity to ask questions about this information, and all questions have been answered to patient???s satisfaction. Patient consents for the use of telemedicine in his/her medical care and authorizes the transmission of any relevant medical informationto providers and their staff involved in patient???s medical or mental health care. Patient understands that they may be responsible for copays, deductible or coinsurance for this service. * Micheal Moseley MD PhD - 09/18/2024 1520 EDT THE GASTROENTEROLOGY AND HEPATOLOGY PROGRESS / FOLLOWUP NOTE - 09/18/2024 CHENTE Crenshaw [address] [address] Dear Ms Guerrero: This is to let you know that I have seen your patient Gena Yun today. I saw her via a video link. No recent notes have been provided by your office. 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 I last saw her in July 2023 when cirrhosis was clinically compensated. A surveillance e ndoscopy in April 2024 did not reveal any abnormalities. The patient was hospitalized in [place] in June 2024 with melena. An upper endoscopy was performed, and the results were not made clearto the patient. Apparently no therapeutic interventions were made. There have been no other decompensating events, including jaundice. The patient does not think she has had liver imaging within the past 6 months. Other recent health issues include frequent falls, which have been attributed to low blood pressure. Current medications include albuterol, enoxaparin, furosemide, gabapentin, lactulose, thyroxine, spironolactone, sucralfate, trazodone, and Effexor. Laboratory data obtained in May 2024 show white blood cell count 3.55, hematocrit 38.2, platelets 83, bilirubin 0.7, alkaline phosphatase 108, ALT 15, AST 19, albumin 3.8, creatinine 1.19 (GFR 51). In summary, Ms Yun has clinically compensated cirrhosis, presumably secondary to MASLD. The fundamental treatment of choice remains weight management (goal to lose at least 10% body weight). The patient remains at risk for the development of portal hypertensive complications, including gastrointestinal variceal bleeding. She should have a surveillance endoscopy with anesthesia sedation in 2025. This could be performed by specialist close to home. If this is not feasible, please reach out to me directly, and I will arrange for this here at [facility]. Cirrhosis also places the patient at risk for the development of hepatocellular carcinoma. If a right upper quadrant abdominal ultrasound has not been performed within the past 6 months, please arrange for this. If no concerning findings are present, ultrasound should be repeated at 6-month intervals indefinitely. My only other recommendation is that you continue to monitor the patient at least yearly with a complete blood count, comprehensive metabolic panel, and prothrombin time. I have not scheduled a routine follow-up appointment, but I would be prepared to see her (ideally via a video link) for a liver specific issue (e.g., diuretic resistant ascites, new hepatic lesion) or if the MELD 3.0 score increases above 15. Thank you once again for allowing me to see this patient in consultation with you. Should you have any further questions regarding this evaluation, please feel free to contact me at any time. Sincerely, Micheal Moseley MD,PhD cc: CHENTE Crenshaw ---- TELEMEDICINE VIDEO VISIT Today's visit was provided through telemedicine video conferencing: I have reviewed the appropriateness of using video technology with the patient with regards to today's visit. The location of the patient: Home The location of the provider: Remote Office The following people and their roles were present for today's visit: Micheal Moseley MD PhD The concept of ???Telemedicine?? has been described to the patient. Patient has been informed of the anticipated benefits and possible risks. Patient understands the information provided regarding telemedicine, has had the opportunity to ask questions about this information, and all questions havebeen answered to patient???s satisfaction. Patient consents for the use of telemedicine in his/her medical care and authorizes the transmission of any relevant medical information to providers and their staff involved in patient???s medical or mental health care. I spent a total of 30 minutes on the date of this encounter meeting with the patient and reviewing documentation/coordinating care as described in the above note. documented in this encounter Plan of Treatment Upcoming Encounters Date Type Department Care Team (Late st Contact Info) Description 01/04/2025 13:00 EST Office Visit [facility] Ophthalmology - [address] [phone] Gagandeep Rome MD [address] [place] [address], [address] [place] [address] 02/11/2025 13:30 EDT Telemedicine [facility] Hematology & Oncology - [address] [phone] Dana Padilla MD [address] [facility], Level [address] [place] [phone] documented as of this encounter Visit Diagnoses Diagnosis Cirrhosis, nonalcoholic (HCC-CMS)- Primary Cirrhosis of liver without mention of alcohol documented in this encounter Care Teams Lead Security Officer Relationship Specialty Start Date End Date Mirna Guerrero PA [address] [place] [address] PCP - General 09/12/24 documented as of this encounter
--- OUTSIDE RECORDS SUMMARY | 2024-11-22 16:48 | XMS_ITS | Encounter Summary ---
Author Organization [facility] Address [address] [place] [address] Care Team Providers Care Evp Chief Exploration Officer Name Role Phone Mirna Guerrero Primary Care Provider + Reason for Visit * Reason Comments Pain Fracture Encounter Details Date Type Department Care Team (Late st Contact Info) Description 10/24/2024 13:00 EST Office Visit [facility] Hand & Upper Extremity Program - [address] [place] [address] Riky Butts MD [address] [place] [phone] Closed fracture of distal end of right radius with routine healing, unspecified fracture morphology, subsequent encounter (Primary Dx) Social History Tobacco Use Types [...] Date Record ed How often does anyone, inclnevin meng family, hit, punch or physically hurt [...] 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 Answer Date of Assessment Author No 09/14/2023 15:57 DAVIDT Lala Sullivan, KENN * Are you blind [...] documented in this encounter Progress Notes * Riky Butts MD - 10/24/2024 1300 EST CC: Right distal radius fracture HPI: Tara returns today for follow-up. She is doing very well. No pain or complaints. No numbness or tingling. EXAMINATION: Patient is awake, alert and oriented x3 and appears comfortable. Cast is removed. There is no skin irritation or breakdown. She has full thumb and digital motion. EPL is intact. She has intact wrist motion with some mild appropriate stiffness. She is neurovascular intact. Thumb and fingers are well- perfused. There is no tenderness or instability. X-rays reviewed demonstrating stable fracture alignment and good progressive healing. TREATMENT PLAN: Doing well status post right distal radius fracture. Radiographic and clinical findings were reviewed. We have provided her with a removable wrist splint. She may wean from the splintand increase activity as tolerated. I would be pleased to see her back at any time if I can be of any further assistance or any further problems or concerns otherwise she may follow- up as needed. Riky Butts MD 10/24/2024 13:20 This note was dictated using voice recognition software. Please excuse any typos, errors, or omissions. documented in this encounter Plan of Treatment Upcoming Encounters Date Type Department Care Team (Late st Contact Info) Description 01/04/2025 13:00 EST Office Visit [facility] Ophthalmology - [address] [phone] Gagandeep Rome MD [address] [place] [address], [facility] [address] [place] [phone] 02/11/2025 13:30 EDT Telemedicine [facility] Hematology & Oncology - [address] [phone] Dana Padilla MD [address] [place] [address], [facility] [address] [place] [phone] documented as of this encounter Visit Diagnoses Diagnosis Closed fracture of distal end of right radius with routine healing, unspecified fracture morphology, subsequent encounter- Primary documented in this encounter Care Teams Evp Chief Exploration Officer Relationship Specialty Start Date End Date Mirna Guerrero PA [address] [place] [address] PCP - General 09/12/24 documented as of this encounter
--- OUTSIDE RECORDS SUMMARY | 2024-11-22 16:48 | XMS_ITS | Encounter Summary ---
Author Organization [facility] Address [address] [place] [address] Care Team Providers Care Acting Manager Name Role Phone Mirna Guerrero Primary Care Provider + Reason for Visit * Reason Onset Date Comments Results 09/19/2024 Encounter Details Date Type Department Care Team (Late st Contact Info) Description 09/19/2024 Telephone [facility] Cancer Center Hematology & Oncology - [facility] [address] [place] [address] Loraine Hu PA-C 111 [facility], [address] [place] [address] Results Social History Tobacco Use Types Packs/Day Years [...] place to sleep or slept in a skilled nursing (including now)? 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 documented in this encounter Plan of Treatment Upcoming Encounters Date Type Department Care Team (Late st Contact Info) Description 01/04/2025 13:00 EST Office Visit [facility] Ophthalmology - [address] [phone] Gagandeep Rome MD [address] [place] [address], [facility] 5 [place] [phone] 02/11/2025 13:30 EDT Telemedicine [facility] Hematology & Oncology - [address] [phone] Dana Padilla MD [address] [place] [address], [facility] 2 [place] [address] documented as of this encounter Visit Diagnoses Not on filedocumented in this encounter Care Teams Acting Manager Relationship Specialty Start Date End Date Mirna Guerrero PA [address] [place] [address] PCP - General 09/12/24 documented as of this encounter
--- OUTSIDE RECORDS SUMMARY | 2024-11-22 16:48 | XMS_ITS | Encounter Summary ---
Author Organization [facility] Address [address] [place] [address] Care Team Providers Care Delinquent Account Clerk Name Role Phone Mirna Guerrero Primary Care Provider + Reason for Visit * Reason Onset Date Comments Post-OP Follow Up 10/24/2024 Encounter Details Date Type Department Care Team (Late st Contact Info) Description 10/24/2024 Orders Only [facility] Hand & Upper Extremity Program - [address] [place] [address] Riky Butts MD [address] [place] [address] Closed fracture of distal end of [...] place to sleep or slept in a retirement (including now)? 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 Not on file Not [...] of Assessment Author Yes 09/08/2023 17:08 EDT Aj Tucker RN * Do you have difficulty dressing [...] Description 01/04/2025 13:00 EST Office Visit [facility] Ophthalmology - [address] [phone] Gagandeep Rome MD [address] [place] [address] 5 [place] [phone] 02/11/2025 13:30 EDT Telemedicine [facility] Hematology & Oncology [address] [address] Dana Padilla MD [address] [place] [address], [facility] 2 [place] [phone] documented as of this encounter Visit Diagnoses Diagnosis Closed fracture of distal end of right radius with routine healing, unspecified fracture morphology, subsequent encounter- Primary documented in this encounter Orders Equipment Count Last Ordered Date First Orde red Date GENERIC ORTHO VENDOR DME 1 10/24/2024 documented in this encounter Care Teams Delinquent Account Clerk Relationship Specialty Start Date End Date Mirna Guerrero PA [address] [place] [address] PCP - General 09/12/24 documented as of this encounter
--- OUTSIDE RECORDS SUMMARY | 2024-11-22 16:48 | XMS_ITS | Encounter Summary ---
Author Organization [facility] Address [address] [place] [address] Care Team Providers Care Accident Examiner Name Role Phone Mirna Guerrero Primary Care Provider + Reason for Visit * Reason Onset Date Comments Results 10/05/2024 Lab results from [facility] Encounter Details Date Type Department Care Team (Late st Contact Info) Description 10/05/2024 Telephone [facility] Cancer Center Hematology & Oncology - [facility] [address] [place] [address] Yvonne Padilla MD [address] [facility], Level 2 [place] [address] Results (Lab results from [facility]) Social History Tobacco Use Types Packs/Day Years [...] 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 YVONNE BELLAENTER 10/05/2024 16:26 documented in this encounter Plan of Treatment Upcoming Encounters Date Type Department Care Team (Late st Contact Info) Description 01/04/2025 13:00 EST Office Visit [facility] Ophthalmology - [address] [phone] Gagandeep Rome MD [address] [place] [address], [facility] 5 [place] [phone] 02/11/2025 13:30 EDT Telemedicine [facility] Hematology & Oncology - [address] [address] Yvonne Padilla MD [address] [place] [address], Level 2 [place] [phone] documented as of this encounter Procedures Procedure Name Priority Date/Time Associated Diagnosis Comments FIBRINOGEN Routine 10/03/2024 12:23 EST documented in this encounter Results * FIBRINOGEN (10/03/2024 12:23 EST) Fibrinogen, external [address] [facility] POINT OF CARE Blood VENOUS BLOOD / Unknown 10/03/2024 12:23 EST us Historical Provider HEMATOLOGY & PF4 ORDERABL ES Edited Result - Final [facility] POINT OF CARE documented in this encounter Visit Diagnoses Not on filedocumented in this encounter Care Teams Accident Examiner Relationship Specialty Start Date End Date Mirna Guerrero PA [address] [place] [address] PCP - General 09/12/24 documented as of this encounter
--- OUTSIDE RECORDS SUMMARY | 2024-11-22 16:48 | XMS_ITS | Encounter Summary ---
Author Organization [facility] Address [address] [place] [address] Care Team Providers Care Autopsy Pathologist Name Role Phone Mirna Guerrero Primary Care Provider + Encounter Details Date Type Department Care Team (Late st Contact Info) Description 10/09/2024 Orders Only [facility] Cancer Center Hematology & Oncology - [facility] [address] [place] [address] Maritza Miller, RN [address] [place] [address] Other cirrhosis of liver (HCC-CMS) (Primary Dx); Neutropenia, unspecified type (HCC-CMS) Social History Tobacco Use Types Packs/Day Years [...] place to sleep or slept in a snf (including now)? No 04/29/2023 Interpersonal Safety Answer Date Record ed How often does anyone, sam meng family, hit, punch or physically hurt you? Never 02/24/2023 How often does anyone, gavinonevin yusra family, insult, scream, curse or threaten to hurt you? 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 Not on file Not [...] Assessment Author No 09/08/2023 17:08 EDT Aj Tucker, KENN documented as of this encounter Mental Status [...] 01/04/2025 13:00 EST Office Visit [facility] Ophthalmology - [address] [phone] Gagandeep Rome MD [address] [place] [address] 5 [place] [phone] 02/11/2025 13:30 EDT Telemedicine [facility] Hematology & Oncology [address] [phone] Dana Padilla MD [address] [place] [address], [facility] 2 [place] [phone] Scheduled Orders Name Type Priority Associated Diagnoses Orde r Schedule COMPLETE BLOOD COUNT AND DIFFERENTIAL Lab Routine Other cirrhosis of liver (HCC-CMS) Neutropenia, unspecified type (HCC-CMS) Expected: 10/09/2024 (Approximate), Expires: 10/09/2025 VITAMIN B12 Lab Routine Other cirrhosis of liver (HCC-CMS) Neutropenia, unspecified type (HCC-CMS) Expected: 10/09/2024 (Approximate), Expires: 10/09/2025 METHYLMALONIC ACID Lab Routine Other cirrhosis of liver (HCC-CMS) Neutropenia, unspecified type (HCC-CMS) Expected: 10/09/2024 (Approximate), Expires: 10/09/2025 documented as of this encounter Visit Diagnoses Diagnosis Other cirrhosis of liver (HCC-CMS)- Primary Neutropenia, unspecified type (HCC-CMS) documented in this encounter Care Teams Autopsy Pathologist Relationship Specialty Start Date End Date Mirna Guerrero PA [address] [place] [address] PCP - General 09/12/24 documented as of this encounter
--- OUTSIDE RECORDS SUMMARY | 2024-11-22 16:48 | XMS_ITS | Encounter Summary ---
Author Organization [facility] Address [address] [place] [address] Care Team Providers Care Diamond Sawer Name Role Phone Mirna Guerrero Primary Care Provider + Reason for Visit * Reason Onset Date Comments Follow-up 09/14/2024 Medicare ride Encounter Details Date Type Department Care Team (Late st Contact Info) Description 09/14/2024 Telephone [facility] Hand & Upper Extremity Program - [address] [place] [address] Inderjit Ansari MD [address] [place] [phone] Follow-up (Medicare ride ) Social History Tobacco Use Types Packs/Day Years [...] place to sleep or slept in a mcc (including now)? 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 Ansari tomorrow. She thanked me for the call and looks forward to seeing us at her appt. * Telephone Encounter - Henny Chew - 09/17/2024 0954 EDT Patient is calling back about ride. She hasn't heard anything has prior auth been sent. Her appt is09/18/24 and if this doesn't happen she will not have ride., Please advise. * Telephone Encounter - Henny Chew - 09/14/2024 1528 EDT Reason for Call: Follow-up (Medicare ride ) Summary: Patient has to have form filled out for [place] for [place] ride. She had the same for filled out when she saw Dr. Butts. When it's more then a 100 miles it needs to be pre approved. Please complete. Appt is 09/18/24 @ 2:00. Appointment Offered? No Henny Chew 09/14/2024 15:29 documented in this encounter Plan of Treatment Upcoming Encounters Date Type Department Care Team (Late st Contact Info) Description 01/04/2025 13:00 EST Office Visit [facility] Ophthalmology - [address] [phone] Gagandeep Rome MD [address] [place] [address] 5 [place] [phone] 02/11/2025 13:30 EDT Telemedicine [facility] Hematology & Oncology - [address] [phone] Dana Padilla MD [address] [place] [address], [facility] 2 [place] [address] documented as of this encounter Visit Diagnoses Not on filedocumented in this encounter Care Teams Diamond Sawer Relationship Specialty Start Date End Date Mirna Guerrero PA [address] [place] [address] PCP - General 09/12/24 documented as of this encounter
--- OUTSIDE RECORDS SUMMARY | 2024-11-22 16:48 | XMS_ITS | Encounter Summary ---
Author Organization [facility] Address [address] [place] [address] Care Team Providers Care National Park Tour Guide Name Role Phone Mirna Guerrero Primary Care Provider + Encounter Details Date Type Department Care Team (Late st Contact Info) Description 09/28/2024 Orders Only [facility] Cancer Center Hematology & Oncology - [facility] [address] [place] [address] Maritza Miller, RN [address] [place] [address] Secondary hypercoagulable state (HCC-CMS) (Primary Dx); Thrombocytopenia (HCC-CMS); Other cirrhosis of liver (HCC-CMS) Social History Tobacco Use Types Packs/Day [...] to sleep or slept in a senior care (including now)? 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 Not on file Not [...] Info) Description 01/04/2025 13:00 EST Office Visit [facility] Ophthalmology - [address] [phone] Gagandeep Rome MD [address] [place] [address] 5 [place] [phone] 02/11/2025 13:30 EDT Telemedicine [facility] Hematology & Oncology [address] [phone] Dana Padilla MD [address] [place] [address] 2 [place] [phone] Scheduled Orders Name Type Priority Associated Diagnoses Orde r Schedule COMPLETE BLOOD COUNT AND DIFFERENTIAL Lab Routine Secondary hypercoagulable state (HCC-CMS) Thrombocytopenia (HCC-CMS) Other cirrhosis of liver (HCC-CMS) Expected: 09/28/2024 (Approximate), Expires: 09/28/2025 PROTIME Lab Routine Secondary hypercoagulable state (HCC-CMS) Thrombocytopenia (HCC-CMS) Other cirrhosis of liver (HCC-CMS) Expected: 09/28/2024, Expires: 09/28/2025 PTT Lab Routine Secondary hypercoagulable state (HCC-CMS) Thrombocytopenia (HCC-CMS) Other cirrhosis of liver (HCC-CMS) Expected: 09/28/2024, Expires: 09/28/2025 FIBRINOGEN Lab Routine Secondary hypercoagulable state (HCC-CMS) Thrombocytopenia (HCC-CMS) Other cirrhosis of liver (HCC-CMS) Expected: 09/28/2024, Expires: 09/28/2025 documented as of this encounter Visit Diagnoses Diagnosis Secondary hypercoagulable state (HCC-CMS)- Primary Secondary hypercoagulable state Thrombocytopenia (HCC-CMS) Thrombocytopenia, unspecified Other cirrhosis of liver (HCC-CMS) documented in this encounter Care Teams National Park Tour Guide Relationship Specialty Start Date End Date Mirna Guerrero PA [address] [place] [address] PCP - General 09/12/24 documented as of this encounter
--- OUTSIDE RECORDS SUMMARY | 2024-11-22 16:48 | XMS_ITS | Encounter Summary ---
Author Organization [facility] Address [address] [place] [address] Care Team Providers Care Beef Lugger Name Role Phone Mirna Guerrero Primary Care Provider + Reason for Visit * Reason Onset Date Comments Appointment Related 09/18/2024 Encounter Details Date Type Department Care Team (Late st Contact Info) Description 09/18/2024 Telephone [facility] Cancer Center Hematology & Oncology - [facility] [address] [place] [address] Dana Padilla MD [address] [facility], [facility] 2 [place] [address] Appointment Related Social History Tobacco [...] place to sleep or slept in a detention (including now)? 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 I have asked Lesly if you need the Michael appt and will let you know what she says. PT advised she'll be calling before surgery to ask when tostop blood thinners. documented in this encounter Plan of Treatment Upcoming Encounters Date Type Department Care Team (Late st Contact Info) Description 01/04/2025 13:00 EST Office Visit [facility] Ophthalmology - [address] [phone] Gagandeep Rome MD [address] [place] [address], [facility] 5 [place] [phone] 02/11/2025 13:30 EDT Telemedicine [facility] Hematology & Oncology - [address] [address] Dana Padilla MD [address] [place] [address], Level [address] [place] [phone] documented as of this encounter Visit Diagnoses Not on filedocumented in this encounter Care Teams Beef Lugger Relationship Specialty Start Date End Date iMrna Guerrero PA [address] [place] [address] PCP - General 09/12/24 documented as of this encounter
--- OUTSIDE RECORDS SUMMARY | 2024-11-22 16:48 | XMS_ITS | Encounter Summary ---
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 Ansari tomorrow. documented in this encounter Plan of Treatment Upcoming Encounters Date Type Department Care Team (Late st Contact Info) Description 01/04/2025 13:00 EST Office Visit [facility] [place] [facility] Ophthalmology - [address] [phone] Gagandeep Rome MD [address] [place] [address], [facility] 5 [place] [phone] 02/11/2025 13:30 EDT Telemedicine [facility] [place] Hematology & Oncology - [address] [address] Dana Padilla MD [address] [place] [address], [facility] 2 [place] [phone] documented as of this encounter Visit Diagnoses Not on filedocumented in this encounter Care Teams Toppiece Chopper Relationship Specialty Start Date End Date Mirna Guerrero PA [address] [place] [address] PCP - General 09/12/24 documented as of this encounter
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
--- OUTSIDE RECORDS SUMMARY | 2024-11-22 16:48 | XMS_ITS | Encounter Summary ---
Author Organization [facility] Address [address] [place] [address] Care Team Providers Care Plant Breeder Name Role Phone Mirna Guerrero Primary Care Provider + Reason for Visit * Reason Onset Date Comments Results 10/04/2024 LAB RESULTS [facility] Encounter Details Date Type Department Care Team (Late st Contact Info) Description 10/04/2024 Telephone [facility] Hematology & Oncology - [facility] [address] [place] [address] Dana Padilla MD [address] [facility], [address] [place] [address] Results (LAB RESULTS [facility]) Social History Tobacco Use Types Packs/Day Years [...] place to sleep or slept in a halfway (including now)? No 04/29/2023 Interpersonal Safety Answer Date Record ed How often does anyone, sam meng family, hit, punch or physically hurt you? Never 02/24/2023 How often does anyone, asm meng family, insult, scream, curse or threaten to hurt you? 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 Not on file Not [...] encounter Miscellaneous Notes * Telephone Encounter - Jesusita Costa MA - 10/04/2024 1701 EST Lab Results received from [facility] Date 10/04/24 Time 17:03 documented in this encounter Plan of Treatment Upcoming Encounters Date Type Department Care Team (Late st Contact Info) Description 01/04/2025 13:00 EST Office Visit [facility] Ophthalmology - [address] [phone] Gagandeep Rome MD [address] [place] [address] [address] [place] [address] 02/11/2025 13:30 EDT Telemedicine [facility] [place] Hematology & Oncology - [address] [address] Dana Padilla MD [address] [place] [address], [facility] [address] [place] [phone] documented as of this encounter Procedures Procedure Name Priority Date/Time Associated Diagnosis Comments COMPLETE BLOOD COUNT AND DIFFERENTIAL Routine 10/03/2024 12:23 EST documented in this encounter Results * (ABNORMAL) COMPLETE BLOOD COUNT AND DIFFERENTIAL (10/03/2024 12:23 EST) WBC, External 1.68(A) 4.0 - 11.0 EXTERNAL [...] Unknown 10/03/2024 12:23 EST us Historical Provider PACKAGES & DNA PROBE DEMI CARDENAS Edited Result - Final EXTERNAL LAB documented in this encounter Visit Diagnoses Not on filedocumented in this encounter Care Teams Plant Breeder Relationship Specialty Start Date End Date Mirna Guerrero PA [address] [place] [address] PCP - General 09/12/24 documented as of this encounter
--- OUTSIDE RECORDS SUMMARY | 2024-11-22 16:48 | XMS_ITS | Encounter Summary ---
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 (5 years old or older) Answer Entry Date Author No 09/08/2023 17:08 EDT Aj Tucker RN documented in this encounter Progress Notes * Maritza Miller, KENN - 10/09/2024 1508 EST Message sent to pt re: recent labs. Will have her check CBC B12 and MMA Orders sent documented in this encounter Plan of Treatment Upcoming Encounters Date Type Department Care Team (Late st Contact Info) Description 01/04/2025 13:00 EST Office Visit [facility] Ophthalmology - [address] [phone] Gagandeep Roem MD [address] [place] [address] [address] [place] [address] 02/11/2025 13:30 EDT Telemedicine [facility] Hematology & Oncology - [address] [phone] Dana Padilla MD [address] [place] [address], [address] [place] [phone] documented as of this encounter Visit Diagnoses Not on filedocumented in this encounter Care Teams Tool Analyst Relationship Specialty Start Date End Date Mirna Guerrero PA [address] [place] [id number] PCP - General 09/12/24 documented as of this encounter
--- OUTSIDE RECORDS SUMMARY | 2024-11-22 16:48 | XMS_ITS | Referral Summary ---
Author Organization [facility] Address [address] [place] [address] Care Team Providers Care Mailroom Clerk Name Role Phone Mirna Guerrero Primary Care Provider + Encounters Date Type Department Care Team Description 10/24/2024 Orders Only [facility] Hand & Upper Extremity Program - [address] [place], [place] [phone] Riky Butts MD Closed fracture of distal end of right radius with routine healing, unspecified fracture morphology, subsequent encounter (Primary Dx) 10/24/2024 12:45 EST - 10/24/2024 23:59 EST [address] Encounter [address] [place], [place] [phone] Right wrist pain Discharge Disposition: Home or Self Care 10/24/2024 Orders Only [facility] Hand & Upper Extremity Program - [address] [place], [place] [phone] Riky Butts MD Right wrist pain (Primary Dx) 10/24/2024 13:00 EST Office Visit [facility] Hand & Upper Extremity Program [place] [address] Riky Butts MD Closed fracture of distal end of right radius with routine healing, unspecified fracture morphology, subsequent encounter (Primary Dx) 10/09/2024 Documentation Visit [facility] Hematology & Oncology [address] [address] Maritza Miller, KENN 10/09/2024 Orders Only [address] [address] Maritza Millre, KENN Other cirrhosis of liver (HCC-CMS) (Primary Dx); Neutropenia, unspecified type (HCC-CMS) 10/05/2024 Documentation Visit [facility] Oncology [address] [address] Maritza Miller RN 10/05/[address] [address] Dana Padilla MD Results (Lab results from [facility]) 10/04/2024 Telephone [facility] Oncology [address] [phone] Dana Padilla MD Results (LAB RESULTS [facility]) 10/03/2024 Telephone [facility] Oncology [address] [address] Dana Padilla MD Critical Value 09/28/2024 Orders Only [address] [address] Maritza Miller RN Secondary hypercoagulable state (HCC-CMS) (Primary Dx); Thrombocytopenia (HCC-CMS); Other cirrhosis of liver (HCC-CMS) 09/27/2024 Telephone [facility] Oncology [address] [address] Dana Padilla MD Bleeding/Bruising 09/21/2024 Telephone [facility] Hand & Upper Extremity Program - [address] [place], [place] [phone] Inderjit Ansari MD Appointment Related 09/21/2024 13:35 EDT - 09/21/2024 23:59 EDT Hospital Encounter [address] [place], [place] [phone] Chronic right shoulder pain Discharge Disposition: Home or Self Care 09/21/2024 13:45 EDT Office Visit [facility] Hand & Upper Extremity Program - [address] [place], [place] [phone] Inderjit Ansari MD Chronic right shoulder pain (Primary Dx) 09/19/2024 Telephone [facility] Hematology & Oncology [address] [address] Loraine Hu PA-C Results 09/19/2024 Telephone [facility] Oncology [address] [address] Loraine Hu PA-C Appointment Related 09/18/2024 Telephone [facility] Hematology Oncology [address] [address] Loraine Hu PA-C Appointment Related 09/18/2024 Telephone [facility] Hematology Oncology [address] [address] Dana Padilla MD Appointment Related 09/18/2024 15:20 EDT Telemedicine [facility] Gastroenterology - [address] [address] Micheal Moseley MD PhD Cirrhosis, nonalcoholic (HCC-CMS) (Primary Dx) 09/17/2024 Telephone [facility] Hand & Upper Extremity Program - [address] [place], [place] [phone] Inderjit Ansari MD Appointment Related 09/14/2024 Telephone [facility] Hand & Upper Extremity Program - [address] [place], [place] [phone] Inderjit Ansari MD Follow-up (Medicare ride ) 09/14/2024 Telephone [facility] Hematology & Oncology [address] [address] Loraine Hu PA-C Update 09/13/2024 Telephone [facility] Hematology & Oncology [address] [address] Maritza Miller, clam grader Management 09/13/2024 13:54 EDT - 09/13/2024 23:59 EDT Hospital Encounter [address] [place], [place] [phone] Right wrist pain Discharge Disposition: Home or Self Care 09/13/2024 Orders Only [facility] Hand & Upper Extremity Program - [address] [place], [place] [phone] Riky Butts MD Right wrist pain (Primary Dx) 09/13/2024 14:15 EDT Office Visit [facility] Hand & Upper Extremity Program - [address] [place], [place] [phone] Riky Butts MD Closed fracture of distal end of right radius, unspecified fracture morphology, initial encounter (Primary Dx) 09/12/2024 Telephone [facility] Hematology & Oncology [address] [address] Loraine Hu PA-C Appointment Related 09/12/2024 16:00 EDT Telemedicine [facility] Oncology [address] [address] Loraine Hu PA-C Secondary hypercoagulable state (HCC-CMS) (Primary Dx) 09/12/2024 Telephone [facility] Hematology & Oncology [address] [address] Loraine Hu PA-C Appointment Related 09/12/2024 Telephone [facility] Hand & Upper Extremity Program - [address] [place], [place] [phone] Riky Butts MD Appointment Related 09/12/2024 Telephone [facility] Hand & Upper Extremity Program - [address] [place], [place] [phone] Riky Butts MD Paperwork request (TRANSPORTATION PAPERS) 09/10/2024 - 09/10/2024 23:59 EDT Hospital Encounter [facility] [place] Discharge Disposition: Home or Self Care 09/08/2024 - 09/08/2024 23:59 EDT Hospital Encounter [facility] [place] Discharge Disposition: Home or Self Care 09/06/2024 0:10 EDT - 09/06/2024 23:59 EDT Hospital Encounter [facility] [place] Discharge Disposition: Home or Self Care 09/06/2024 0:05 EDT - 09/06/2024 0:09 EDT Hospital Encounter [facility] [place] Discharge Disposition: Home or Self Care 09/06/2024 - 09/06/2024 0:04 EDT Hospital Encounter [facility] [place] Discharge Disposition: Home or Self Care 09/04/2024 Telephone [facility] [place] Hematology & Oncology - [address] [address] Dana Padilla MD Medication Management; Follow-up from Last 3 Months Allergies Active Allergy Reactions Criticality Noted Date Comments Zolpidem Other (See Comments) 04/26/2023 Amnesia--in [facility]. [place] let to psych admission. Aspirin [...] ications:Chronic obstructive pulmonary disease, unspecified COPD type ([facility]) INHALE 1 PUFF BY MOUTH DIRECTED DAILY [...] the original. 2021-Verified NON-ACO [place] Medicaid TCN: [id number] Cris Jacob 01/05/2022 14:39 Verified Traditional Medicaid trans#[id number] Meeta Elam 11/18/2020 12:55 Patient declined Permisson to discuss. Andrew Crocker 06/20/2024 9:33 Problem Noted Date Diagnosed Date Closed fracture of left distal radius 03/02/2024 Stage 3a chronic kidney disease ([facility]) 2022 Chronic insomnia 03/18/2023 Depression 03/18/2023 Acute pulmonary edema ([facility]) 07/31/2022 Overview (07/31/2022): Mild interstitial edema noted [...] then daily. 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 Lovenox 60 mg daily continued -February 2024: provoked pulmonary embolism after wrist fracture and surgery and holding lovenox for 2+ days, Rx lovenox 80 mg BID with intent to continue that for 3 months COPD (chronic obstructive pulmonary disease) (HC C-CMS) 01/21/2021 Nephrolithiasis 11/10/2020 HUEY (obstructive sleep apnea) 04/26/2020 Other cirrhosis of liver (HCC-CMS) 09/30/2017 Overview (10/10/2023): -NAFLD related cirrhosis with history of decompensation, chronic portal htn, hepatic encephalopathy, small esophageal varices on EGD in 2019, thrombocytopenia/hypersplenism, portal gastropathy. Sees Dr. Moseley -s/p partial splenic embolization (09/28/21) -portal vein thrombosis -Hep C Past provider: Dr. Ijeoma Smith, GI Department in [facility] for long-standing decompensated liver cirrhosis Obesity, [...] 07/18/2015 Overview (10/26/2021): -bone marrow biopsy at [facility] in 2013: maturing trilineage hematopoiesis with no underlying hematopoietic abnormalities Mild persistent asthma without complication 06/22 Drug-seeking behavior Overview (10/26/2021): Per Dr Amelia Tijerina and notes from [facility] patient misconstrued information to several providers about multiple concurrent opiate prescription. -IR embolization 09/28/21 for thrombocytopenia. Counts raised from 30s to 200K Resolved Problems Problem Noted Date Diagnosed Date Resolved Date MUSA (acute kidney injury) ([facility]) 09/08/2023 12/23/2023 Hypokalemia 09/08/2023 10/07/2023 Hematemesis, unspecified whe ther nausea present 04/29/2023 10/07/2023 Hematemesis 04/29/2023 10/07/2023 Sepsis ([facility]) 12/14/2022 12/16/2022 Cirrhosis ([facility]) 12/14/2022 10/07/20 COPD exacerbation ([facility]) 06/16/2022 08/13/2022 Acute on chronic congestive heart failure, unspecified heart failure type ([facility]) 06/16/2022 06/30/2022 Shortness of breath 05/08/2022 09/23/20 22 Hypoxemia 05/08/2022 09/23/2022 Respiratory failure with hypoxia ([facility]) 05/07/2022 09/23/2022 Hypotension 02/11/2022 02/01/2023 LUQ abdominal pain 02/10/2022 Abdominal pain 11/03/2021 09/23/2022 GI bleed 11/03/2021 11/04/2021 GI bleed 10/08/2021 10/26/2021 GI bleeding 10/08/2021 10/21/2021 Pain crisis 09/29/2021 10/02/2021 At risk for inadequate pain control 09/28/2021 10/26/2021 Moderate protein-calorie mal nutrition ([facility]) 07/02/2021 02/01/2023 Fluid overload 07/01/2021 10/07/2023 Fall, initial encounter 06/29/202106/21 Anasarca 06/29/2021 07/02/2021 Left ureteral stone 12/03/2020 10/07/20 23 COPD exacerbation ([facility]) 04/26/2020 04/28/2020 Respiratory distress 04/26/2020 020 Dyspnea 04/26/2020 02/01/2023 Enteritis 11/27/2019 04/28/2020 Partial small bowel obstruction ([facility]) 11/27/2019 10/07/2023 Sepsis ([facility]) 01/05/2019 01/05/2019 Influenza A 01/03/2019 04/28/2020 Fever [...] 07/12/2015 09/30/2017 Hypersplenism syndrome 10/26 Hypercoagulable state ([facility]) 02/01/2023 History of bleeding ulcers 1 12/07/2022 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 Answer Date of Assessment Author No 09/14/2023 15:57 EDT Lala Sullivan RN * Are you blind or do [...] Author No 09/08/2023 17:08 Aj Hall RN Mental Status * Because of a physical, mental, or emotional condition, do you have serious difficulty concentrating, remembering, or making decisions? (5 years old or older) Answer Entry Date Author No 09/08/2023 17:08 Aj Hall RN Plan of Treatment Upcoming Encounters Date Type Department Care Team (Late st Contact Info) Description 01/04/2025 13:00 EST Office Visit [facility] Ophthalmology - [address] [phone] Gagandeep Rome MD [address] [place] [address], [address] [place] [phone] 02/11/2025 13:30 EDT Telemedicine [facility] Hematology & Oncology [address] [address] Dana Padilla MD [address] [facility], [address] [place] [phone] Medical Devices Implanted Type Area Hr Specialist Device Identifier Shelf Expiration Date Model / Serial / Lot Coil Embo Non Coated Pltn Nitnl Detachable [id number] Elisha [id number] - [id number] Implanted:Qty: 1 on 09/28/2021 at [facility] Coil Implant N/A: Abdomen PENUMBRA [id number] 04/28/2029 [id number] / / [id number] Coil Embo Coated Pt Helical [id number] Interlock [id number] - [id number] Implanted:Qty: 1 on 09/28/2021 at [facility] Coil Implant N/A: Abdomen Shoptimise [id number] 08/27/2022 [id number] 20 / / [id number] Coil Embo Non Coated Pltn Nitnl Detachable [id number] Elisha [id number] - [id number] Implanted:Qty: 1 on 09/28/2021 at [facility] Coil Implant N/A: Abdomen PENUMBRA [id number] 06/03/2029 [id number] / / [id number] Particle Embolization 300-500um Embosphere V420gh - [id number] Implanted:Qty: 1 on 09/28/2021 at [facility] Embolic N/A: Abdomen TOSA ([employer] [id number] 11/29/2023 V420GH / / [id number] Particle Embolization 300-500um Embosphere V420gh - [id number] Implanted:Qty: 1 on 09/28/2021 at [facility] Embolic N/A: Abdomen TOSA ([employer] [id number] V420GH / / Particle Embolization 300-500um Embosphere V420gh - [id number] Implanted:Qty: 1 on 09/28/2021 at [facility] Embolic N/A: Abdomen TOSA ([employer] [id number] V420GH / / Particle Embolization 500-700um Embosphere V620gh - [id number] Implanted:Qty: 1 on 09/28/2021 at [facility] Embolic N/A: Abdomen TOSA ([employer] [id number] V620 / / Plate Bone Cmprs Lckng Dvr 6x3 Hole Std Lt 2.4x54mm Va Lcp [id number] - [id number] Implanted:Qty: 1 on 03/02/2024 by Riky Butts MD at [facility] Plate Implant Left: Wrist [employer] 02.111.6 31 / / Screw Bone Fthrd Lckng 2.4x16mm Lcp [id number] - [id number] Implanted:Qty: 1 on 03/02/2024 by Riky Butts MD at [facility] Screw Implant Left: Wrist [employer] 02.210.1 16 / / Screw Bone Fthrd Lckng 2.4x18mm Lcp [id number] - [id number] Implanted:Qty: 1 on 03/02/2024 by Riky Butts MD at [facility] Screw Implant Left: Wrist [employer] 02.210.1 18 / / Screw Bone Cortical Slf Tpng 2.4x12mm Lcp [id number] - [id number] Implanted:Qty: 1 on 03/02/2024 by Riky Butts MD at [facility] Screw Implant Left: Wrist [employer] 201.762 / / Screw Bone Cortical Slf Tpng 2.4x13mm Lcp [id number] - [id number] Implanted:Qty: 1 on 03/02/2024 by Riky Butts MD at [facility] Screw Implant Left: Wrist [employer] 201.763 / / Screw Bone Cortical Slf Tpng Fthrd 2.4x14mm Lcp [id number] - [id number] Implanted:Qty: 1 on 03/02/2024 by Riky Butts MD at [facility] Screw Implant Left: Wrist [employer] 201.764 / / Stent Ureteral Double Pigtail Tapered Tip [id number] [place] [id number] - [id number] Implanted:Qty: 1 on 12/03/2020 by Lon Ortez MD at [facility] Stent Left: Ureter [facility] [id number] 04/11/2024 [id number] / / [id number] Procedures Procedure Name Priority Date/Time Associated Diagnosis [...] Encounter for drug screening Opioid dependence, uncomplicated ([facility]) LIPID PROFILE (INCLUDES CHOLESTEROL, TRIGLYCERIDES, HDL, LDL) [...] residual soft tissue swelling about the wrist. [id number] Narrative 10/24/2024 15:00 EST EXAM/TECHNIQUE: 10/24/2024 1:09 PM ??XR WRIST RIGHT 3 OR MORE VIEWS 4 views ?? HISTORY: ??Distal radius fracture Resulting Agency Comment [id number] Procedure Note Jordan Manzano MD - 10/24/2024 [...] isresidual soft tissue swelling about the wrist. [id number] Riky Butts MD IMG DIAGNOSTIC IMAGING ORDERAB LES Final Result * FIBRINOGEN (10/03/2024 12:23 EST) Only the most recent of2 resultswithin the time period is included. Fibrinogen, external 229 [facility] POINT OF CARE Blood VENOUS BLOOD / Unknown 10/03/2024 12:23 EST Historical Provider HEMATOLOGY & PF4 ORDERABL ES Edited Result - Final [facility] POINT OF CARE * (ABNORMAL) COMPLETE BLOOD [...] VENOUS BLOOD / Unknown 10/03/2024 12:23 EST Result [facility] Historical Provider PACKAGES & DNA PROBE ORDE RABLES Edited Result - Final Performing Organization Address [facility]/ZIP Co de Phone Number EXTERNAL LAB * PROFILE IRON STUDIES (INCLUDES IRON, IBC, AND FERRITIN) (10/03/2024) Ferritin, External EXTERNAL LAB Iron, External EXTERNAL LAB TIBC, External EXTERNAL LAB Iron Saturation, External EXTERNAL LAB Blood VENOUS BLOOD / Unknown 10/03/2024 Result [facility] Historical Provider CHEMISTRY & BLOOD GAS ORD ERABLES Edited Result - Final Performing Organization Address [facility] Co de Phone Number EXTERNAL LAB * PTT (10/03/2024) PTT, External 28.7 EXTERNAL LAB Blood VENOUS BLOOD / Unknown 10/03/2024 Result [facility] Provider HEMATOLOGY & PF4 ORDERABL ES Final Result Performing Organization Address [facility] Co de Phone Number EXTERNAL LAB * PROTIME (10/03/2024) Protime, External 11.8 EXTERNAL LAB INR, External 1.1 EXTERNAL LAB Blood VENOUS BLOOD / Unknown 10/03/2024 Result [facility] Historical Provider HEMATOLOGY & PF4 ORDERABL ES Final Result Performing Organization Address [facility] Co de Phone Number EXTERNAL LAB * XR [...] are otherwise grossly unremarkable. There is osteopenia. [id number] Narrative 10/01/2024 5:31 EST EXAM/TECHNIQUE: XR SHOULDER RIGHT 2 OR MORE VIEWS ??09/21/2024 1:57 PM HISTORY: Right shoulder pain COMPARISON: Right shoulder radiographs dated January 08, 2023. Right shoulder MRI dated 03/09/2024. Resulting Agency Comment [id number] Procedure Note Nahun Castellano MD - 10/01/2024 [...] tissues are otherwise grossly unremarkable. Thereis osteopenia. [id number] Inderjit Ansari MD IMG DIAGNOSTIC IMAGING OR [...] distal radial fracture is unchanged in alignment. [id number] Narrative 09/14/2024 7:34 EDT EXAM/TECHNIQUE: XR WRIST RIGHT 3 OR MORE VIEWS ??09/13/2024 1:56 PM HISTORY: ?? right wrist pain COMPARISON: Radiograph 09/06/2024. Resulting Agency Comment [id number] Procedure Note Dom Mcintyre DO - 09/14/2024 EXAM/TECHNIQUE: XR WRIST RIGHT 3 OR MORE VIEWS 09/13/2024 1:56 PM HISTORY: right wrist pain COMPARISON: Radiograph 09/06/2024. IMPRESSION FINDINGS / IMPRESSION: 3 views of the right wrist obtained following closed reduction andsplinting with a fiberglass cast. The minimally impacted intra-articulardistal radial fracture is unchanged in alignment. [id number] us Riky Butts MD IMG DIAGNOSTIC IMAGING [...] * (ABNORMAL) POCT DRUG SCREEN, URINE (02/01/2024) [facility] Signature Temperature, POC 92 ??F 90 - 100 ??F [facility] POINT OF CARE Creatinine, POC 200 mg/dL 20-200 mg/dL [facility] POINT OF CARE Specific Ulman, POC 1.025 1.005 - 1.025 [facility] POINT OF CARE pH, POC 5.0 4.0 - 9.0 [facility] POIN T OF CARE Amphetamine, POC Negative . [facility] POINT OF CARE Barbiturates, POC Negative . [facility] POINT OF CARE Buprenorphine , POC Negative . [facility] POINT OF CARE Benzodiazapen e, POC Negative . [facility] POINT OF CARE Cocaine, POC Negative . [facility] OINT OF CARE MDMA, POC Negative . [facility] POIN T OF CARE Methamphetami ne, POC Negative . [facility] POINT OF CARE Opiates 300, POC Negative . [facility] POINT OF CARE Methadone, POC Negative . [facility] POINT OF CARE Oxycodone, POC Negative . [facility] POINT OF CARE PCP, POC Negative . [facility] POIN T OF CARE THC, POC Preliminary positive, Result should be confirmed if clinically indicated(A) . [facility] POINT OF CARE Urine URINE / Unknown 02/01/2024 us Emigdio Veronica MD POINT OF CARE TEST ORDER YANN Final Result [facility] POINT OF CARE * LIPID PROFILE (INCLUDES CHOLESTEROL, TRIGLYCERIDES, HDL, LDL) (04/16/2022 10:45 EDT) Cholesterol 143 <200 mg/dL 04/16/2022 12:14 EDT [facility] Comment:Note that therapeuti c goals will differ between patients based on cardiac risk factors and current medical therapy. HDL 59 >=50 mg/dL 04/16/2022 12:14 EDT [facility] Comment:Note that therapeuti c goals will differ between patients based on cardiac risk factors and current medical therapy. LDL, Calculated 72 <160 mg/dL 12:14 EDT [facility] Comment:Note that therapeuti c goals will differ between patients based on cardiac risk factors and current medical therapy. Triglyceride 59 <=150 mg/dL 04/16/2022 12:14 EDT [facility] Comment:Note that therapeuti c goals will differ between patients based on cardiac risk factors and current medical therapy. Chol/HDL Ratio 2.4 See Note 04/16/2022 12:14 EDT [facility] Comment:No reference range h as been established for CHOL/HDL ratio. Non HDL Cholesterol 84 <160 mg/dL 04/16/2022 12:14 T [facility] Comment:Note that therapeuti c goals will differ between patients based on cardiac risk factors and current medical therapy. Blood VENOUS BLOOD / Unknown Venipuncture / Unknown 04/16/2022 10:45 EDT 04/16/2022 10:45 EDT us Emigdio Veronica MD CHEMISTRY & BLOOD GAS OR DERABLES Final Result Performing Organization Address [facility] de Phone Number [facility] [address] [place] [address] * HCV RNA QUANT WITH REFLEX TO GENOTYPE (05/19/2018 9:54 EDT) [facility] HCV RNA Detect Quant Undetected Undetected IU/mL 05/23/2018 14:41 EDT [facility] Comment: Reference Range: ??Undetected The quantification range of this assay is 15 IU/mL to 100,000,000 IU/mL. Testing was performed by the Pamela Amplip[employer]/Pamela TaqMan HCV v2.0 ([employer] BLOOD SPECIMEN / Unknown 05/19/2018 9:54 EDT 05/19/2018 19:49 EDT us Segundo Weems MD CHEMISTRY & BLOOD GAS ORDERAB LES Final Result Performing Organization Address [facility] Co de Phone Number [facility] [address] [place] [address] * HIV 1/2 ANTIBODY (02/21/2017 17:31 EDT) [facility] Center HIV 1/2 Antibody Negative 02/23/20 12:51 EDT [facility] Comment: If acute HIV-1 infection is suspected in a high risk patient, submit plasma specimen for HIV-1 RNA quantification test. Reference Range: ??Negative Assayed utilizing Ebix chemiluminescent technology. BLOOD SPECIMEN / Unknown 02/21/2017 17:31 EDT 02/21/2017 17:46 EDT us Araceli Fountain PA-C IMMUNOLOGY AND SEROLOGY DEMI CARDENAS Final Result Performing Organization Address City/[facility]/ZIP Co de Phone Number [facility] [address] [place] [address] * HUMAN PAPILLOMA VIRUS DNA TEST (12/15/2006 9:14 EST) Specimen Description Cervix, ThinPrep vial [facility] Result Negative for HPV types 16, 18, 31, 33, 35, 39, 45, 51, 52, 56, 58, 59, and 68. [facility] Report Status Final [id number] [facility] 12/15/2006 9:14 EST 12/20/2006 9:14 EST Wayne Rivero MD MICROBIOLOGY - GENERAL ORDERABLE S Final Result Performing Organization Address City/[facility] Co de Phone Number [facility] [address] [place] [address] from Last 3 Months or Most Recently Relevant to Health Maintenance Insurance [place]ICAID [place] [employer] MEDICARE UNITED [employer]ARE MEDICARE MEDICAID [place] Advance Directives For more information, please contact: [phone] * Full Code (Latest Code Status on [...] Made the Decision? Default/Not Discussed Care Teams Mailroom Clerk Relationship Specialty Start Date End Date Mirna Guerrero PA [address] [place] [id number] PCP - General 09/12/24
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
--- OUTSIDE RECORDS SUMMARY | 2024-11-22 16:49 | XMS_ITS | Encounter Summary ---
Author Organization [facility] Address [address] [place] [address] Care Team Providers Care Roller Printing Supervisor Name Role Phone Gabriel Gandara Primary Care Provider [phone] Reason for Referral * (Routine/Next Available) - Receiving Office to Obtain Authorization Specialty Diagnoses / Procedures Referred By Contac t Referred To Contact Procedures XR OUTSIDE IMAGES RIGHT UPPER EXTREMITY Imaging, External Referral ID Status Reason Start Date Expiration Date Visits Requested Visits Authorized [id number] Receiving Office to Obtain Authorization 4 1 1 Reason for Visit * (Routine/Next Available) - Receiving Office to Obtain Authorization Specialty Diagnoses / Procedures Referred By Contac t Referred To Contact Procedures XR OUTSIDE IMAGES RIGHT UPPER EXTREMITY Imaging, External Referral ID Status Reason Start Date Expiration Date Visits Requested Visits Authorized [id number] Receiving Office to Obtain Authorization 4 1 1 Encounter Details Date Type Department Care Team (Latest Contact Info) Description 09/06/2024 0:05 EDT - 09/06/2024 0:09 EDT Hospital Encounter [facility] Secondary Reads [place] Discharge Disposition: Home or Self Care Social [...] 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 1 Each 1 08/12/2023 diclofenac sodium gel Apply 2 g topically 2 times daily as needed for Pain (Knee pain). 50 g 1 06/25/2022 furosemide (LASIX) 20 mg tablet TAKE 3 [...] IS 150 MG). 90 Capsule 3 02/14/2024 enoxaparin (LOVENOX) 60 mg/0.6 mL injection Inject 60 mg into the skin daily. 54 mL 3 10/19/2023 fluticasone propionate (FLOVENT DISKUS) 100 mcg/actuation blister with device hydrOXYzine (ATARAX) 25 mg tablet TAKE 1-2 TABLETS BY MOUTH 3 TIMES DAILY NEEDED FOR ANXIETY. 540 Tablet 1 11/04/2023 4 documented as of this encounter Discharge Disposition Disposition Code Departure Means Destination Home or Self Care documented in this encounter Plan of Treatment Upcoming Encounters Date Type Department Care Team (Late st Contact Info) Description 01/04/2025 13:00 EST Office Visit [facility] Ophthalmology - [address] [phone] Gagandeep Rome MD 111 [facility], [address] [place] [phone] 02/11/2025 13:30 EDT Telemedicine [facility] Hematology & Oncology - [address] [phone] Dana Padilla MD 111 [facility], [address] [place] [phone] documented as of this encounter Procedures Procedure Name Priority Date/Time Associated Diagnosis Comments XR OUTSIDE IMAGES RIGHT UPPER EXTREMITY Routine 09/06/2024 9:05 EDT documented in this encounter Results * XR OUTSIDE IMAGES RIGHT UPPER EXTREMITY (09/06/2024 9:05 EDT) Narrative 09/11/2024 9:06 EDT This is a non-reportable exam. us External Imaging IMG OTHER IMAGING ORDERABLES Fi nal Result documented in this encounter Visit Diagnoses Not on filedocumented in this encounter Care Teams Roller Printing Supervisor Relationship Specialty Start Date End Date Gabriel Gandara PA PCP - General 03/19/24 09/11/24 documented as of this encounter
--- OUTSIDE RECORDS SUMMARY | 2024-11-22 16:49 | XMS_ITS | Encounter Summary ---
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 Presenting with diarrhea 4 days that is black then today large amount of red stools and pres yncopal. No general surgery or GI available there and because of reported care here at [facility] we were the first call. Not hospitalized here since 08/2023 in [facility] and outpatient upper endoscopy in June was normal. Of note, Dr. Padilla has a note from February where she had a PE while off anticoagulation and was hospitalized at [facility]. Stable appearance No JASVIR performed 96/57 (essentially unchanged after 2 liters IVF) HR85 H/H 11/35 (12/38 on 06/05) Plt 66 (83 on 06/05) BUN 25/Cr 1.4 Pt/ptt normal Based on current status at [facility] and clinical stability, recommended transferring to a closer facility and ideally where she was most recently hospitalized if able to determine. If unable to find an accepting hospital or clinical status changes warranting emergent transfer, may call back. Brianne Zepeda MD 07/12/2024 2:15 Hospitalist documented in this encounter Plan of Treatment Upcoming Encounters Date Type Department Care Team (Late st Contact Info) Description 01/04/2025 13:00 EST Office Visit [facility] Ophthalmology - [address] [phone] Gagandeep Rome MD [address] [place] [address], [facility] [address] [place] [phone] 02/11/2025 13:30 EDT Telemedicine [email or web address] Hematology & Oncology - [address] [address] Dana Padlila MD [address] [place] [address], [facility] [address] [place] [phone] documented as of this encounter Visit Diagnoses Not on filedocumented in this encounter Care Teams Truck Loader Relationship Specialty Start Date End Date Gabriel Gandara PA PCP - General 03/19/24 09/11/24 documented as of this encounter
--- OUTSIDE RECORDS SUMMARY | 2024-11-22 16:49 | XMS_ITS | Encounter Summary ---
Author Organization [facility] Address [address] [place] [address] Care Team Providers Care Casino Floor Runner Name Role Phone Mirna Guerrero Primary Care Provider + Reason for Visit * Reason Comments Pain * Consult (Routine) - Receiving Office to Obtain Authorization Specialty Diagnoses / Procedures Referred By Contac t Referred To Contact Orthopedic Surgery Diagnoses Distal radial fracture Unknown, Provider, [facility] Upper Extremity Program - [place] [address] Phone: tel: fax: Referral ID Status Reason Start Date Expiration Date Visits Requested Visits Authorized [id number] Receiving Office to Obtain Authorization 1 1 Encounter Details Date Type Department Care Team (Late st Contact Info) Description 09/13/2024 14:15 EDT Office Visit [facility]remity [facility] - [place] [address] Riky Butts MD [facility] [place] [address] Closed fracture of distal end of right radius, unspecified fracture morphology, initial encounter (Primary Dx) Social History Tobacco Use [...] 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 She fell a week ago sustaining an injury to her right wrist. She also injured her shoulder in the fall. She had had some antecedent intermittent shoulder pain but since the time of her injury her shoulders been much more painful and she has been unable to actively elevate. The wrist has been painful. She is taking oxycodone. She has had some intermittent paresthesias. EXAMINATION: Patient is awake, alert and oriented x3 and appears comfortable. Examination of the right wrist demonstrates mild swelling and bruising. There are no open wounds. Compartments are soft. She has full thumb and digital motion. She is neurovascularly intact to motor and sensory testing. Thumb and fingers are well-perfused. She is nontender about the elbow or proximal forearm. Is tender over the distal radius. Nontender in the snuffbox of the remainder of the carpus or hand. There is no gross instability. She is unable to actively elevate the shoulder or abduct beyond about 70-80 degrees. X-rays of the wrist reviewed demonstrating a nondisplaced fracture of the distal radius. Shoulder MRI reviewed demonstrating a rotator cuff tear. TREATMENT PLAN: Gena has a nondisplaced fracture of the distal radius. This has been stable for a week. Radiographic and clinical findings were reviewed. At this point this requires immobilization. We have placed her in a cast. Cast and swelling precautions reviewed. She will follow-up in 4 to 5weeks for repeat radiographic and clinical evaluation and likely initiation of protected motion. She has a rotator cuff tear of unclear chronicity. Will help facilitate evaluation by my shoulder colleagues for this. She may continue pain medication as needed. Riky Butts MD 09/13/2024 14:47 This note was dictated using voice recognition software. Please excuse any typos, errors, or omissions. * Ne Curran MA - 09/13/2024 1415 EDT As instructed, I applied a short arm fiberglass cast with delta dry padding to the right arm. Zachary Butts MD was immediately available during the entire time the service was being provided. Materials used: 2 rolls of 2 inch fiberglass 2 rolls of 2 inch synthetic cast lining delta dry. Patient Eduction Topic: Cast care and application Method: Verbal Taught to: Patient Barriers: None Outcomes: verbalized understanding Ne Curran MA documented in this encounter Plan of Treatment Upcoming Encounters Date Type Department Care Team (Late st Contact Info) Description 01/04/2025 13:00 EST Office Visit [facility] Ophthalmology - [place] [phone] Gagandeep Rome MD [address] [facility], [address] [place] [phone] 02/11/2025 13:30 EDT Telemedicine [facility] Hematology & Oncology - [address] [phone] Dana Padilla MD 111 [facility], [address] [place] [phone] documented as of this encounter Visit Diagnoses Diagnosis Closed fracture of distal end of right radius, unspecified fracture morphology, initial encounter- Primary documented in this encounter Care Teams Casino Floor Runner Relationship Specialty Start Date End Date Mirna Guerrero PA [address] [place] [id number] PCP - General 09/12/24 documented as of this encounter
--- OUTSIDE RECORDS SUMMARY | 2024-11-22 16:49 | XMS_ITS | Encounter Summary ---
Author Organization [facility] Address [address] [place] [address] Care Team Providers Care Communications Supervisor Name Role Phone Gabriel Gandara Primary Care Provider Reason for Visit * Reason Onset Date Comments Medication Management 06/20/2024 Encounter Details Date Type Department Care Team (Late st Contact Info) Description 06/20/2024 Telephone [facility] Cancer Center Hematology & Oncology - [facility] [address] [place] [address] Dana Padilla MD 111 [facility], [facility] 2 [place] [address] Medication Management Social History Tobacco Use Types Packs/Day Years [...] 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 Platelets are 83. * Telephone Encounter - Jacob Hopkins - 06/21/2024 1344 EDT The patient is calling again to ask if she should could stop taking blood thinners * Telephone Encounter - Nguyen Bledsoe - 06/20/2024 1645 EDT Patient calling back to try and get an answer about the medication please call back to discuss * Telephone Encounter - Andrew Crocker - 06/20/2024 0931 EDT HemOnc Incoming Call Medication Issue/PA Request Caller issue: PCP advise she should not stay on blood thinners for long period of time; lab completed this week and platelet count 85 Would like to discuss with nurse or provider Medication: Levonox 80mg Andrew Crocker 06/20/2024 9:32 documented in this encounter Plan of Treatment Upcoming Encounters Date Type Department Care Team (Late st Contact Info) Description 01/04/2025 13:00 EST Office Visit [facility] Ophthalmology - [address] [phone] Gagandeep Rome MD [address] [place] [address], [facility] 5 [place] [phone] 02/11/2025 13:30 EDT Telemedicine [facility] Hematology & Oncology [address] [phone] Dana Padilla MD [address] [place] [address], Level [address] [place] [phone] documented as of this encounter Visit Diagnoses Not on filedocumented in this encounter Care Teams Communications Supervisor Relationship Specialty Start Date End Date Gabriel Gandara PA PCP - General 03/19/24 09/11/24 documented as of this encounter
--- OUTSIDE RECORDS SUMMARY | 2024-11-22 16:49 | XMS_ITS | Encounter Summary ---
Author Organization [facility] Address [address] [place] [address] Care Team Providers Care Dusting And Brushing Machine Operator Name Role Phone Gabriel Gandara Primary Care Provider [phone] Reason for Referral * (Routine/Next Available) - Receiving Office to Obtain Authorization Specialty Diagnoses / Procedures Referred By Contac t Referred To Contact Procedures MR OUTSIDE IMAGES RIGHT UPPER EXTREMITY Imaging, External Referral ID Status Reason Start Date Expiration Date Visits Requested Visits Authorized [id number] Receiving Office to Obtain Authorization 4 1 1 Reason for Visit * (Routine/Next Available) - Receiving Office to Obtain Authorization Specialty Diagnoses / Procedures Referred By Contac t Referred To Contact Procedures MR OUTSIDE IMAGES RIGHT UPPER EXTREMITY Imaging, External Referral ID Status Reason Start Date Expiration Date Visits Requested Visits Authorized [id number] Receiving Office to Obtain Authorization 4 1 1 Encounter Details Date Type Department Care Team (Latest Contact Info) Description 09/08/2024 - 09/08/2024 23:59 EDT Hospital Encounter [facility] Medical Center Secondary Reads [place] Discharge Disposition: Home [...] Date Record ed How often does anyone, inclu yusra family, hit, punch or physically hurt you? Never 02/24/2023 How often does anyone, inclnevin meng family, insult, scream, curse or threaten to hurt you? 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 file Not [...] Office Visit [facility] Ophthalmology - [address] [phone] Gagandeep Rome MD 111 [facility], Level [address] [place] [phone] 02/11/2025 13:30 EDT Telemedicine [facility] Cancer Center Hematology & Oncology - [address] [phone] Dana Padilla MD 111 [facility], Level [address] [place] [address] documented as of this encounter Procedures Procedure Name Priority Date/Time Associated Diagnosis Comments MR OUTSIDE IMAGES RIGHT UPPER EXTREMITY Routine 09/08/2024 9:05 EDT documented in this encounter Results * MR OUTSIDE IMAGES RIGHT UPPER EXTREMITY (09/08/2024 9:05 EDT) Narrative 09/11/2024 9:05 EDT This is a non-reportable exam. us External Imaging IMG OTHER IMAGING ORDERABLES Fi nal Result documented in this encounter Visit Diagnoses Not on filedocumented in this encounter Care Teams Dusting And Brushing Machine Operator Relationship Specialty Start Date End Date Gabriel Gandara PA PCP - General 03/19/24 09/11/24 documented as of this encounter
--- OUTSIDE RECORDS SUMMARY | 2024-11-22 16:49 | XMS_ITS | Encounter Summary ---
Author Organization [facility] Address [address] [place] [address] Care Team Providers Care Vine Pruner Name Role Phone Mirna Guerrero Primary Care Provider + Reason for Visit * Reason Onset Date Comments Appointment Related 09/12/2024 Encounter Details Date Type Department Care Team (Late st Contact Info) Description 09/12/2024 Telephone [facility] Cancer Center Hematology & Oncology - [facility] [address] [place] [address] Loraine Hu PA-C 111 [facility], [address] [place] [address] Appointment Related Social History Tobacco [...] 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 Not on [...] * Telephone Encounter - Heike Bowie - 09/12/2024 1413 EDT Faxed to [phone] and previously faxed to [phone] to request records documented in this encounter Plan of Treatment Upcoming Encounters Date Type Department Care Team (Late st Contact Info) Description 01/04/2025 13:00 EST Office Visit [facility] Ophthalmology - [address] [phone] Gagandeep Rome MD [address] [place] [address], [facility] 5 [place] [phone] 02/11/2025 13:30 EDT Telemedicine [facility] Hematology & Oncology [address] [phone] Dana Padilla MD [address] [place] [address], [address] [place] [phone] documented as of this encounter Visit Diagnoses Not on filedocumented in this encounter Care Teams Vine Pruner Relationship Specialty Start Date End Date Mirna Guerrero PA [address] [place] [id number] PCP - General 09/12/24 documented as of this encounter
--- OUTSIDE RECORDS SUMMARY | 2024-11-22 16:49 | XMS_ITS | Encounter Summary ---
Author Organization [facility] Address [address] [place] [address] Care Team Providers Care Matching Machine Operator Name Role Phone Gabriel Gandara Primary Care Provider [phone] Reason for Referral * (Routine/Next Available) - Receiving Office to Obtain Authorization Specialty Diagnoses / Procedures Referred By Contac t Referred To Contact Procedures CT OUTSIDE IMAGES CERVICAL SPINE Imaging, External Referral ID Status Reason Start Date Expiration Date Visits Requested Visits Authorized [id number] Receiving Office to Obtain Authorization 4 1 1 Reason for Visit * (Routine/Next Available) - Receiving Office to Obtain Authorization Specialty Diagnoses / Procedures Referred By Contac t Referred To Contact Procedures CT OUTSIDE IMAGES CERVICAL SPINE Imaging, External Referral ID Status Reason Start Date Expiration Date Visits Requested Visits Authorized [id number] Receiving Office to Obtain Authorization 4 1 1 Encounter Details Date Type Department Care Team (Latest Contact Info) Description 09/10/2024 - 09/10/2024 23:59 EDT Hospital Encounter [facility] Center Secondary [place] Discharge [...] How hard is it for you to cooper gramajo for the very basics like food, housing, [...] place to sleep or slept in a custodial (including now)? 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 Not on file Not [...] Description 01/04/2025 13:00 EST Office Visit [facility] Ophthalmology - [address] [phone] Gagandeep Rome MD 111 [facility], Level 5 [place] [phone] 02/11/2025 13:30 EDT Telemedicine [facility] Cancer Center Hematology & Oncology - [address] [phone] Dana Padilla MD [address] [place] [address], Level [address] [place] [phone] documented as of this encounter Procedures Procedure Name Priority Date/Time Associated Diagnosis Comments CT OUTSIDE IMAGES CERVICAL SPINE Routine 09/10/2024 9:04 EDT documented in this encounter Results * CT OUTSIDE IMAGES CERVICAL SPINE (09/10/2024 9:04 EDT) Narrative 09/11/2024 9:04 EDT This is a non-reportable exam. us External Imaging IMG OTHER IMAGING ORDERABLES Fi nal Result documented in this encounter Visit Diagnoses Not on filedocumented in this encounter Care Teams Matching Machine Operator Relationship Specialty Start Date End Date Gabriel Gandara PA PCP - General 03/19/24 09/11/24 documented as of this encounter
--- OUTSIDE RECORDS SUMMARY | 2024-11-22 16:49 | XMS_ITS | Encounter Summary ---
Author Organization [facility] Address [address] [place] [address] Care Team Providers Care Medical Accountant Name Role Phone Gabriel Gandara Primary Care Provider [phone] Reason for Referral * (Routine/Next Available) - Receiving Office to Obtain Authorization Specialty Diagnoses / Procedures Referred By Contac t Referred To Contact Procedures XR OUTSIDE IMAGES RIGHT UPPER EXTREMITY Imaging, External Referral ID Status Reason Start Date Expiration Date Visits Requested Visits Authorized [id number] Receiving Office to Obtain Authorization 4 1 1 Reason for Visit * (Routine/Next Available) - Receiving Office to Obtain Authorization Specialty Diagnoses / Procedures Referred By Contac t Referred To Contact Procedures XR OUTSIDE IMAGES RIGHT UPPER EXTREMITY Imaging, External Referral ID Status Reason Start Date Expiration Date Visits Requested Visits Authorized [id number] Receiving Office to Obtain Authorization 4 1 1 Encounter Details Date Type Department Care Team (Latest Contact Info) Description 09/06/2024 - 09/06/2024 0:[address] 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 Ophthalmology - [address] [phone] Gagandeep Rome MD 111 [facility], Level [address] [place] [phone] 02/11/2025 13:30 EDT Telemedicine [facility] Cancer Center Hematology & Oncology - [address] [phone] Dana Padilla MD 111 [facility], Level [address] [place] [address] documented as of this encounter [...] on filedocumented in this encounter Care Teams Medical Accountant Relationship Specialty Start Date End Date Gabriel Gandara PA PCP - General 03/19/24 09/11/24 documented as of this encounter
--- OUTSIDE RECORDS SUMMARY | 2024-11-22 16:49 | XMS_ITS | Encounter Summary ---
Author Organization [facility] Address [address] [place] [address] Care Team Providers Care Leather Sponger Name Role Phone Gabriel Gandara Primary Care Provider [phone] Reason for Referral * (Routine/Next Available) - Receiving Office to Obtain Authorization Specialty Diagnoses / Procedures Referred By Contac t Referred To Contact Procedures XR OUTSIDE IMAGES RIGHT UPPER EXTREMITY Imaging, External Referral ID Status Reason Start Date Expiration Date Visits Requested Visits Authorized [id number] Receiving Office to Obtain Authorization 4 1 1 Reason for Visit * (Routine/Next Available) - Receiving Office to Obtain Authorization Specialty Diagnoses / Procedures Referred By Contac t Referred To Contact Procedures XR OUTSIDE IMAGES RIGHT UPPER EXTREMITY Imaging, External Referral ID Status Reason Start Date Expiration Date Visits Requested Visits Authorized [id number] Receiving Office to Obtain Authorization 4 1 1 Encounter Details Date Type Department Care Team (Latest Contact Info) Description 09/06/2024 0:10 EDT - 09/06/2024 23:59 EDT Hospital Encounter [facility] [place] Discharge Disposition: [...] place to sleep or slept in a care home (including now)? 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 Not on file Not [...] Info) Description 01/04/2025 13:00 EST Office Visit [facility] Ophthalmology - [address] [phone] Gagandeep Rome MD 111 [facility], Level 5 [place] [phone] 02/11/2025 13:30 EDT Telemedicine [facility] Hematology & Oncology - [address] [phone] Dana Padilla MD 111 [facility], Level 2 [place] [address] documented as of this encounter Procedures Procedure Name Priority Date/Time Associated Diagnosis Comments XR OUTSIDE IMAGES RIGHT UPPER EXTREMITY Routine 09/06/2024 9:06 EDT documented in this encounter Results * XR OUTSIDE IMAGES RIGHT UPPER EXTREMITY (09/06/2024 9:06 EDT) Narrative 09/11/2024 9:06 EDT This is a non-reportable exam. us External Imaging IMG OTHER IMAGING ORDERABLES Fi nal Result documented in this encounter Visit Diagnoses Not on filedocumented in this encounter Care Teams Leather Sponger Relationship Specialty Start Date End Date Gabriel Gandara PA PCP - General 03/19/24 09/11/24 documented as of this encounter
--- OUTSIDE RECORDS SUMMARY | 2024-11-22 16:49 | XMS_ITS | Encounter Summary ---
Author Organization [facility] Address [address] [place] [address] Care Team Providers Care Glass Cut Off Tender Name Role Phone Gabriel Gandara Primary Care Provider Reason for Visit * Reason Onset Date Comments Appointment Related 06/28/2024 Encounter Details Date Type Department Care Team (Late st Contact Info) Description 06/28/2024 Telephone [facility] Cancer Center Hematology & Oncology - [facility] [address] [place] [address] Loraine Hu PA-C 111 [facility], Level 2 [place] [address] Appointment Related Social History Tobacco [...] place to sleep or slept in a fdc (including now)? 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 Gave pt the # to call to get backinto her Restalohart. documented in this encounter Plan of Treatment Upcoming Encounters Date Type Department Care Team (Late st Contact Info) Description 01/04/2025 13:00 EST Office Visit [facility] Ophthalmology - [address] [phone] Gagandeep Rome MD [address] [place] [address], [facility] 5 [place] [address] 02/11/2025 13:30 EDT Telemedicine [facility] Hematology & Oncology [address] [address] Dana Padilla MD [address] [place] [address], Level [address] [place] [phone] documented as of this encounter Visit Diagnoses Not on filedocumented in this encounter Care Teams Glass Cut Off Tender Relationship Specialty Start Date End Date Gabriel Gandara PA PCP - General 03/19/24 09/11/24 documented as of this encounter
--- OUTSIDE RECORDS SUMMARY | 2024-11-22 16:49 | XMS_ITS | Encounter Summary ---
Author Organization [facility] Address [address] [place] [address] Care Team Providers Care Form Carpenter Name Role Phone Mirna Guerrero Primary Care Provider + Reason for Visit * Reason Onset Date Comments Paperwork request 09/12/2024 TRANSPORTATION PAPERS Encounter Details Date Type Department Care Team (Late st Contact Info) Description 09/12/2024 Telephone [facility] Hand & Upper Extremity Program - [address] [place] [address] Riky Butts MD [address] [place] [phone] Paperwork request (TRANSPORTATION PAPERS) Social History Tobacco Use Types Packs/Day Years [...] place to sleep or slept in a half-way (including now)? 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 I will complete and have Dr. Butts signso I can fax it back accordingly for patients appt with him tomorrow. * Telephone Encounter - Kate Medellin - 09/12/2024 0847 EDT Reason for Call: Paperwork request (TRANSPORTATION PAPERS) Summary: Tara phoned has emergent apt w/ Dr Butts at 2pm tomm. Needs a form for medicaid completed and sent in for her to get transportation to her appt, this needs to be completed and sent in before 3 pm today. Pls call pt once completed so she can secure the ride. Appointment Offered? No Kate Medellin 09/12/2024 8:48 documented in this encounter Plan of Treatment Upcoming Encounters Date Type Department Care Team (Late st Contact Info) Description 01/04/2025 13:00 EST Office Visit [facility] Ophthalmology - [address] [address] Gagandeep Rome MD 111 [facility], Level [address] [place] [phone] 02/11/2025 13:30 EDT Telemedicine [facility] Cancer Center Hematology & Oncology - [facility] [address] [place], [place] [phone] Dana Padilla MD 111 [facility], Level [address] [place] [address] documented as of this encounter Visit Diagnoses Not on filedocumented in this encounter Care Teams Form Carpenter Relationship Specialty Start Date End Date Mirna Guerrero PA [address] [place] [address] PCP - General 09/12/24 documented as of this encounter
--- OUTSIDE RECORDS SUMMARY | 2024-11-22 16:49 | XMS_ITS | Encounter Summary ---
Author Organization [facility] Address [address] [place] [address] Care Team Providers Care Forensic Photographer Name Role Phone Izabella Snowden FIELD AGRONOMIST Unavailable [phone] Gabriel Gandara Primary Care Provider [phone] Encounter Details Date Type Department Care Team (Latest Contact Info) Description 04/27/2024 9:50 EDT - 04/27/2024 23:59 EDT Hospital Encounter [facility] Pre-Surgical Testing [address] [place] [address] Discharge Disposition: Home or Self Care Social History Tobacco Use Types Packs/Day Years Used Date Smoking Tobacco: Former Cigarettes 0.3 35 S tarted: 12/22/2023 Smokeless Tobacco: Never Alcohol Use Standard [...] place to sleep or slept in a fci (including now)? 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 Not on file Not o n file documented as of this encounter Last Filed Vital Signs Vital Sign Reading Time Taken Comments Blood Pressure - - Pulse - - Temperature - - Respiratory Rate - - Oxygen Saturation - - Inhaled Oxygen Concentration - - Weight 97.5 kg (215 lb) 04/27/2024 1014 EDT Height 161.3 cm (5' 3.5) 04/27/2024 1014 EDT Body Mass Index 37.49 04/27/2024 1014 EDT documented in this encounter Functional Status * Are you [...] cations:Chronic obstructive pulmonary disease, unspecified COPD type ([facility]) INHALE 1 PUFF BY MOUTH DIRECTED DAILY [...] or Self Care documented in this encounter OR Notes * Preprocedure Instructions - Radha Mejia RN - 04/27/2024 0950 EDT Tara Yun has been instructed as follows regarding medication administration for the day of the scheduled procedure. Date of Surgery: 05/10/24 Instructions for Taking Medications Day of Surgery Medication Dose and frequency Last Dose Hold Day of Surgery Take Day of Surgery albuterol 90 mcg/actuation inhaler Inhale 1-2 Puffs as directed every 4 hours as needed for Wheezing. Take if needed diclofenac sodium gel Apply 2 g topically 2 times daily as needed for Pain (Knee pain). Last day touse 05/02/24 enoxaparin (LOVENOX) 60 mg/0.6 mL injection Inject 60 mg into the skin daily. Patient taking differently: Inject 80 mg into the skin every 12 hours. need AC plan last note from Dr. Padilla in Hem (03/19/24):PCP to check CBC every 2 weeks a few times to make sure the platelet count remains above 50K and there is no bleeding. He should call me if it goes down and cc results tome fluticasone propionate (FLOVENT DISKUS) 100 mcg/actuation blister with device take furosemide (LASIX) 20 mg tablet TAKE 3 TABLETS EVERY DAY. IF FLUID IN LEGS IS WELL CONTROLLED THEN CUT DOWN TO 2 EVERY DAY. Patient taking differently: Take 2 Tablets by mouth daily. TAKE 3 TABLETS EVERY DAY. IF FLUID IN LEGS IS WELL CONTROLLED THEN CUT DOWN TO 2 EVERY DAY. hold gabapentin (NEURONTIN) 300 mg capsule Take two capsules in the AM, one capsule in the afternoon andtwo capsules in the evening take hydrOXYzine (ATARAX) 25 mg tablet TAKE 1-2 TABLETS BY MOUTH 3 TIMES DAILY NEEDED FOR ANXIETY. take INCRUSE ELLIPTA 62.5 mcg/actuation INHALE 1 PUFF BY MOUTH DIRECTED DAILY take lactulose (CHRONULAC) 10 gram/15 mL solution TAKE 15-30ML BY MOUTH DAILY NEEDED (CONSTIPATION. TARGET GOAL OF TWO BOWEL MOVEMENTS DAILY). hold levothyroxine (SYNTHROID) 25 mcg tablet TAKE 1 TABLET BY MOUTH EVERY DAY take lidocaine 5 % (LIDODERM) 5 % patch Place 1 Patch onto the skin daily. Remove after 12 hours Patient not taking: Reported on 03/02/2024 N/A naloxone (NARCAN) 4 mg/actuation nasal spray 0.1 mL by nasal route as needed for Opioid Reversal. Repeat every 2-3 minutes if not effective and overdose is suspected. (spray is harmless in excess). Patient not taking: Reported on 03/02/2024 Take if needed ondansetron (ZOFRAN) 4 mg tablet TAKE 1 TABLET BY MOUTH EVERY 8 HOURS NEEDED FOR NAUSEA Take if needed oxyCODONE (ROXICODONE) 5 mg immediate release tablet Take 3 Tablets by mouth every 6 hours as needed for Pain. Take if needed OXYGEN-AIR DELIVERY SYSTEMS MISC 2 L by misc (non-drug; combo route) route at bedtime. Use as directed/needed spironolactone (ALDACTONE) 100 mg tablet Take 0.5 Tablets by mouth daily. hold sucralfate (CARAFATE) 1 gram tablet Take 1 Tablet by mouth 4 times daily. hold traZODone (DESYREL) 100 mg tablet Take 1 Tablet by mouth at bedtime. take venlafaxine (EFFEXOR-XR) 150 mg XR capsule TAKE 1 CAPSULE BY MOUTH DAILY. (TOTAL DAILY DOSE OF THISMEDICATION IS 150 MG). take Instructions: Call your surgeon prior to surgery date IF: You become ill. You have any new skin problems near the area where your surgery will be, such as a rash, blister, or infection. Your surgeon may have given you specific instructions to prepare for surgery. Please follow surgeonspecific instructions & call surgeon's office with any questions. Fasting: Follow the eating and drinking instructions below unless otherwise instructed by your surgeon. No solid food or liquids containing fats, including milk*, after midnight. On the day of your procedure, you should only have clear liquids (see ???Acceptable Liquids?? listed below). Stop drinking 2 hours before your arrival time to the hospital. Acceptable Liquids: DO NOT ADD THICKENERS TO ANY LIQUIDS Water Clear apple juice Clear white grape juice Clear sports drinks / Pedialyte (no protein or coconut water based sports drinks) *Children under 3 years of age: Water- up to 4 hours before surgical time Clear apple juice- up to 4 hours before surgical time Clear white grape juice- up to 4 hours before surgical time Clear sports drinks / Pedialyte- up to 4 hours before surgical time Breast milk - up to 4 hours before surgical time - *do not add cereals Non-human milk or formula - up to 6 hours before surgical time *do not add cereal or use formula with cereal already added Shower: with an ANTIBACTERIAL SOAP (or scrub sponge if provided by your surgeon's office) the nightbefore surgery and the morning of surgery. Do not shave your surgical site for 3 days prior to surgery. After your morning shower avoid using creams, lotion, powders, deodorant, makeup, hairspray, perfumes or colognes. Remove all fingernail fijian, makeup, jewelery and body piercings before surgery. Ride Home: We require you have a responsible adult to drive you home after surgery or to accompany you if getting home via Taxi or Bus. If your ride cannot wait for you at the hospital, they still need to come in to pick you up, to assist with medication warehouse picker from pharmacy, review of discharge instructions and surgical consult. We ask that your ride stay within 15 minutes of the hospital for warehouse picker. Medications: Take as directed above with a sip of water on day of surgery. (If a medication must betaken with something other than clear liquids or sips of water, please call the PreAdmission Testing Clinic at for guidance.) Bring a list of your medications to the hospital. Please list when you last took each of medication. Leave actual medications at home unless told otherwise. CPAP/BiPAP: Bring your cleaned CPAP/BiPAP machine into preop on the day of your surgery. Be sure toempty the water chamber prior to transport Smoking: Stop smoking tobacco and marijuana prior to surgery as much as possible, avoiding it for aminimum of 24 hours prior to surgery. Legal Guardianship: BRING Proof of Guardianship on Day of Surgery. Legal Guardian must be availableon the Day of Surgery by Telephone if not physically present on the Day of Surgery. Clothing: Wear loose fitting and comfortable clothing. For arm and hand surgery wear a zip up or button up shirt with short sleeves. For eye surgery, do not wear a shirt that pulls over the head unless it has a wide neck opening. Valuables: Do not bring any on day of surgery, except money you may need for you hospital co-pay orto purchase any prescriptions. Visitation: Typically, two visitors are allowed in the Preop and Recovery areas. Each area of the hospital may have different visitation guidelines. Contact Information: Prior to Day of Surgery, call Pre-Admission Testing Clinic: [phone]. PAT toll Free Number . For Day of Surgery: [facility]: [phone] [facility]; [phone]. Visit our website for more information: [email or web address] Advance Directives: You can get the forms in a doctor's office, a hospital, a law office, a state or local office for the aging, a senior center, a chcf, or online. For more information, including forms for your state, see the [employer] website (www.[employer].org/planning/advance-directives/). If not already done, please bring a signed copy of your Advance Directive with you to the hospital so that it may scanned into your electronic health record. documented in this encounter Miscellaneous Notes * Therese Mark, HARSH - 04/27/2024 0950 EDT Anesthesia Review Needed Date Review Started: 04/27/2024 [place] ([facility]): main DOS: 05/10/24 Surgeon: Dr. Moseley Procedure: [...] Per Dr Amelia Tijerina and notes from [facility] patient misconstrued information to several providers about [...] Noted 04/27/24-Bone marrow Bx at [facility] in 2012, Maturing trilineage hematopoiesis with [...] BLE; 04/27/24 Thrombocytopenia (HCC-CMS) 04/27/24: Dr. Padilla button maker following pt. Increased lovenox to 80mg Q12 [...] down and cc results to me RADHA MEJIA RN FILLER OPERATOR Anesthesia Review Needed RADHA MEJIA RN 04/27/2024 11:[address] Moseley's note [...] 01/04/2025 13:00 EST Office Visit [facility] Ophthalmology - [address] [address] Gagandeep Rome MD [address] [place] [address], [address] [place] [address] 02/11/2025 13:30 EDT Telemedicine [facility] Cancer Center Hematology & Oncology - [facility] [address], [place] [address] Dana Padilla MD [address], [address] [place] [address] documented as of this encounter Visit Diagnoses Not on filedocumented in this encounter Care Teams Forensic Photographer Relationship Specialty Start Date End Date Gabriel Gandara PA 1 [facility], 3rd [place] [phone] PCP - General 03/19/24 09/11/24 Izabella Snowden, FIELD AGRONOMIST 1 [facility], [address]rd [place] [phone] Hearse Driver 02/21/23 05/03/24 documented as of this encounter
--- OUTSIDE RECORDS SUMMARY | 2024-11-22 16:49 | XMS_ITS | Encounter Summary ---
Author Organization [facility] Address [address] [place] [address] Care Team Providers Care Data Network Architect Name Role Phone Mirna Guerrero Primary Care Provider + Reason for Visit * Reason Onset Date Comments Appointment Related 09/12/2024 Encounter Details Date Type Department Care Team (Late st Contact Info) Description 09/12/2024 Telephone [facility] Cancer Center Hematology & Oncology - [facility] [address] [place] [address] Loraine Hu PA-C [address] [facility], [address] [place] [address] Appointment Related Social History Tobacco [...] place to sleep or slept in a correction (including now)? 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 documented in this encounter Plan of Treatment Upcoming Encounters Date Type Department Care Team (Late st Contact Info) Description 01/04/2025 13:00 EST Office Visit [facility] Ophthalmology - [address] [id number] Gagandeep Rome MD [address] [place] [address], [facility] 5 [place] [phone] 02/11/2025 13:30 EDT Telemedicine [facility] Hematology & Oncology [address] [phone] Dana Padilla MD [address] [place] [address], [facility] 2 [place] [phone] documented as of this encounter Visit Diagnoses Not on filedocumented in this encounter Care Teams Data Network Architect Relationship Specialty Start Date End Date Mirna Guerrero PA [address] [place] [address] PCP - General 09/12/24 documented as of this encounter
--- OUTSIDE RECORDS SUMMARY | 2024-11-22 16:49 | XMS_ITS | Encounter Summary ---
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 54 mL 3 10/19/2023 4 documented as of this encounter Discharge Disposition Disposition Code Departure Means Destination Home or Self Care documented in this encounter Plan of Treatment Upcoming Encounters Date Type Department Care Team (Late st Contact Info) Description 01/04/2025 13:00 EST Office Visit [facility] Ophthalmology [address] [address] Gagandeep Rome MD [address] [place] [address], [address] [place] [phone] 02/11/2025 13:30 EDT Telemedicine [facility] Hematology & Oncology [address] [phone] Dana Padilla MD 111 [facility], [address] [place] [phone] documented as of this encounter Procedures Procedure Name Priority Date/Time Associated Diagnosis Comments XR WRIST RIGHT 3 OR MORE VIEWS Routine 09/13/2024 14:06 EDT Right wrist pain documented in this encounter [...] distal radial fracture is unchanged in alignment. [id number] Narrative 09/14/2024 7:34 EDT EXAM/TECHNIQUE: XR WRIST RIGHT 3 OR MORE VIEWS ??09/13/2024 1:56 PM HISTORY: ?? right wrist pain COMPARISON: Radiograph 09/06/2024. Resulting Agency Comment [id number] Procedure Note Dom Mcintyre, DO - 09/14/2024 EXAM/TECHNIQUE: XR WRIST RIGHT 3 OR MORE VIEWS 09/13/2024 1:56 PM HISTORY: right wrist pain COMPARISON: Radiograph 09/06/2024. IMPRESSION FINDINGS / IMPRESSION: 3 views of the right wrist obtained following closed reduction andsplinting with a fiberglass cast. The minimally impacted intra-articulardistal radial fracture is unchanged in alignment. [id number] us Riky Butts MD IMG DIAGNOSTIC IMAGING ORDERAB LES Final Result documented in this encounter Visit Diagnoses Diagnosis Right wrist pain Pain in joint, forearm documented in this encounter Care Teams Command And Control Specialist Relationship Specialty Start Date End Date Mirna Guerrero PA [address] [place] [address] PCP - General 09/12/24 documented as of this encounter
--- OUTSIDE RECORDS SUMMARY | 2024-11-22 16:49 | XMS_ITS | Encounter Summary ---
Author Organization [facility] Address [address] [place] [address] Care Team Providers Care Fiberglass Fabricator Name Role Phone Gabriel Gandara Primary Care Provider [phone] Reason for Visit * Reason Onset Date Comments Coordination Of Care 06/26/2024 Medication Management 06/26/2024 Encounter Details Date Type Department Care Team (Late st Contact Info) Description 06/26/2024 Telephone [facility] Hematology & Oncology - [facility] [address] [place] [address] Dana Padilla MD 111 [facility], [facility] 2 [place] [address] Coordination Of Care; Medication Management Social History Tobacco Use Types [...] place to sleep or slept in a long-term (including now)? 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 * Telephone Encounter - Arlette Damon RN - 06/27/2024 1203 EDT Spoke with pt: Asked that she decrease Lovenox dose to 80mg ONCE a day. Confirmed that she is not on ASA/NSAID. Reviewed that we would want her to take 40mg of Lovenox theday prior to dental work, then nothing day of. She mentioned that she is supposed to have 7 extractions and may try to get referred to [facility] because she is worried about bleeding. Last platelet count was 83,000. * Telephone Encounter - Andrew Crocker - 06/26/2024 1023 EDT HemOnc Incoming Call Home Health/Outside Hospital/Provider Facility Name or Home Health Agency: [facility] Name and title of caller: Radha/nurse Phone number(and extension, if applicable): [phone] Reason for call: Other Patient was scheduled to have dental extraction work completed. But she is on blood thinners and issues with platelets. They would like to know should patient follow up with blood work to check platelets prior to extraction. And will patient need to stop blood thinners prior to extraction Andrew Crocker 06/26/2024 10:24 documented in this encounter Plan of Treatment Upcoming Encounters Date Type Department Care Team (Late st Contact Info) Description 01/04/2025 13:00 EST Office Visit [facility] Ophthalmology - [address] [address] Gagnadeep Rome MD [address] [place] [address], [facility] 5 [place] [phone] 02/11/2025 13:30 EDT Telemedicine [facility] Hematology & Oncology [address] [phone] Dana Padilla MD [address] [place] [address], [facility] 2 [place] [address] documented as of this encounter Visit Diagnoses Not on filedocumented in this encounter Care Teams Fiberglass Fabricator Relationship Specialty Start Date End Date Gabriel Gandara PA PCP - General 03/19/24 09/11/24 documented as of this encounter
--- OUTSIDE RECORDS SUMMARY | 2024-11-22 16:49 | XMS_ITS | Encounter Summary ---
Author Organization [facility] Address [address] [place] [address] Care Team Providers Care Senior Application Programmer Name Role Phone Gabriel Gandara Primary Care Provider [phone] Mirna Guerrero Primary Care Provider + Reason for Visit * Reason Onset Date Comments Medication Management 09/11/2024 Follow-up 09/04/2024 Encounter Details Date Type Department Care Team (Late st Contact Info) Description 09/04/2024 Telephone [facility] Cancer Center Hematology & Oncology - [facility] [address] [place], [place] [phone] Dana Padilla MD [address] 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 Patient wants to know hen blood thinners should stop Please call back to advise Next Appointment: 12/12/2024 Last Office Visit: 03/19/2024 Dana Padilla MD Last Telehealth Encounter: 12/07/2021 Dana Padilla MD Send ROUTINE Priority to Hem/Onc Nurse Pool Sarahi Almendarez 09/11/2024 16:50 * Telephone Encounter - Nati Prado - 09/05/2024 1536 EDT HemOn Incoming Call Active Symptoms/Disease Management Call Reason: Patient called to see if there has been any updates yet since her call yesterday. Next Appointment: 12/12/2024 Last Office Visit: 03/19/2024 Dana Padilla MD Last Telehealth Encounter: 12/07/2021 Dana Padilla MD Send ROUTINE Priority to Hem/Onc Nurse Pool Nati Prado 09/05/2024 15:36 * Telephone Encounter - PamelaBennett fragoso - 09/04/2024 0840 EDT HemOnc Incoming Call Medication Issue/PA Request Caller issue:Patient went to [facility] for GI Bleed and they increased her Lovenox to 100mg 2 times a day, she was taking 80mg 1 time day, doctor in [facility] is wanting patient to follow up with Dr Padilla to handle her blood issue, asking what she need to do to decrease her Lovenox back down Medication: Lovenox Please call back to discuss and advise Bennett Pamela 09/04/2024 8:40 documented in this encounter Plan of Treatment Upcoming Encounters Date Type Department Care Team (Late st Contact Info) Description 01/04/2025 13:00 EST Office Visit [facility] Ophthalmology - [address] [phone] Gagandeep Rome MD [address] [place] [address] 5 [place] [address] 02/11/2025 13:30 EDT Telemedicine [facility] Hematology & Oncology - [address] [phone] Dana Padilla MD [address] [place] [address], [facility] 2 [place] [phone] documented as of this encounter Visit Diagnoses Not on filedocumented in this encounter Care Teams Senior Application Programmer Relationship Specialty Start Date End Date Gabriel Gandara PA PCP - General 03/19/24 09/11/24 Mirna Guerrero PA [address] [place] [address] PCP - General 09/12/24 documented as of this encounter
--- OUTSIDE RECORDS SUMMARY | 2024-11-22 16:49 | XMS_ITS | Encounter Summary ---
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 Answer Date of Assessment Author No 09/14/2023 15:57 Laal Haynes RN * Are you blind or [...] Description 01/04/2025 13:00 EST Office Visit [facility] Ophthalmology - [address] [phone] Gagandeep Rome MD [address] [place] [address], [facility] [address] [place] [phone] 02/11/2025 13:30 EDT Telemedicine [facility] Hematology & Oncology - [address] [phone] Dana Padilla MD [address] [place] [address], [facility] [address] [place] [phone] documented as of this encounter Results * [...] distal radial fracture is unchanged in alignment. [id number] Narrative 09/14/2024 7:34 EDT EXAM/TECHNIQUE: XR WRIST RIGHT 3 OR MORE VIEWS ??09/13/2024 1:56 PM HISTORY: ?? right wrist pain COMPARISON: Radiograph 09/06/2024. Resulting Agency Comment [id number] Procedure Note Dom Mcintyre, DO - 09/14/2024 EXAM/TECHNIQUE: XR WRIST RIGHT 3 OR MORE VIEWS 09/13/2024 1:56 PM HISTORY: right wrist pain COMPARISON: Radiograph 09/06/2024. IMPRESSION FINDINGS / IMPRESSION: 3 views of the right wrist obtained following closed reduction andsplinting with a fiberglass cast. The minimally impacted intra-articulardistal radial fracture is unchanged in alignment. [id number] us Riky Butts MD IMG DIAGNOSTIC IMAGING ORDERAB LES Final Result documented in this encounter Visit Diagnoses Diagnosis Right wrist pain- Primary Pain in joint, forearm Right wrist pain Pain in joint, forearm documented in this encounter Care Teams Human Resources Intern Relationship Specialty Start Date End Date Mirna Guerrero PA [address] [place] [id number] PCP - General 09/12/24 documented as of this encounter
--- OUTSIDE RECORDS SUMMARY | 2024-11-22 16:49 | XMS_ITS | Encounter Summary ---
Author Organization [facility] Address [address] [place] [address] Care Team Providers Care Auto Parts Clerk Name Role Phone Gabriel Gandara Primary Care Provider [phone] Encounter Details Date Type Department Care Team (Late st Contact Info) Description 06/20/2024 Documentation Visit [facility] Hematology & Oncology - [facility] [address] [place] [address] Maritza Miller, RN [address] [place] [address] Social History Tobacco Use Types Packs/Day Years [...] place to sleep or slept in a mcfp (including now)? 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 Not on file [...] Info) Description 01/04/2025 13:00 EST Office Visit [facility] Ophthalmology - [address] [phone] Gagandeep Rome MD [address] [place] [address] [address] [place] [phone] 02/11/2025 13:30 EDT Telemedicine [facility] Hematology & Oncology [address] [phone] Dana Padilla MD [address] [place] [address] [address] [place] [address] documented as of this encounter Procedures Procedure Name Priority Date/Time Associated Diagnosis Comments COMPLETE BLOOD COUNT AND DIFFERENTIAL Routine 06/05/2024 documented in this encounter Results * (ABNORMAL) COMPLETE BLOOD COUNT AND DIFFERENTIAL (06/05/2024) WBC, External 3.55(A) 4.0 - 11.0 EXTER NAL FACILITY RBC, External 4.21 CALCULATION CLERK AL FACILITY Hemoglobin, External 12.6 % EXTERNAL FACILITY HCT, External 38.2 CALCULATION CLERK AL FACILITY MCV, External 90.7 CALCULATION CLERK AL FACILITY MCH, External 29.9 g/dL CALCULATION CLERK AL FACILITY MCHC, External 33.0 g/dL EXTER NAL FACILITY PLT, External 83(A) 130 - 430 CALCULATION CLERK AL FACILITY RDW-CV, External 15.5(A) 11.0 - 15.0 EXTERNAL FACILITY Neutrophils, External 75.9 EXTERNAL FACILITY Lymphocytes, External 15.8 EXTERNAL FACILITY Monocytes, External 8.7 EXTERNAL FACILITY Eosinophils, External 0.8 EXTERNAL FACILITY Basophils, External 0.6 EXTERNAL FACILITY ABS Neutrophils, External 2.55 EXTERNAL FACILITY ABS Lymphs, External 0.56(A) 0.75 - 3.75 EXTERNAL FACILITY ABS Monocytes, External 0.31 EXTERNAL FACILITY ABS Eosinophils, External 0.03 EXTERNAL FACILITY ABS Basophils, External 0.02 EXTERNAL FACILITY Blood VENOUS BLOOD / Unknown 06/05/2024 us Historical Provider PACKAGES & DNA PROBE MELVINE THERESA Final Result EXTERNAL FACILITY documented in this encounter Visit Diagnoses Not on filedocumented in this encounter Care Teams Auto Parts Clerk Relationship Specialty Start Date End Date Gabriel Gandara PA PCP - General 03/19/24 09/11/24 documented as of this encounter
--- OUTSIDE RECORDS SUMMARY | 2024-11-22 16:49 | XMS_ITS | Encounter Summary ---
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 As discussed during our visit, my recommendations are as follows: - will call to confirm the correct Lovenox dose once we have received/reviewed your outside records - contact us if scheduled for surgery as we need to assist in the plan of how to stop/resume Lovenox for it General reminders: Signs and symptoms of DVT (clot in a deep vein) include one-sided leg or arm pain, swelling, or increased redness/heat to an area. Please seek medical evaluation should any of these occur. Signs and symptoms of a pulmonary embolism (clot in the lungs) include shortness of breath, dry cough, coughing up blood, and/or chest pain. If you develop any of these symptoms, please seek emergency medical evaluation. Avoid NSAIDs while on a blood thinner Any trauma (particularly head trauma) on a blood thinner warrants immediate medical evaluation Feel free to contact me via Novac[employer] or call the office if you have any questions/concerns. Thanks, Loraine Hu PA-C documented in this encounter Ordered Prescriptions Prescription Sig Dispense Quantity Refills Last Filled Start Date End Date enoxaparin (LOVENOX) 80 mg/0.8 mL injection Inject 80 mg into the skin daily. 24 mL 5 09/14/2024 documented in this encounter Progress Notes * Loraine Hu PA-C - 09/12/2024 1600 EDT Thrombosis & Hemostasis Program (THP) Follow Up Visit Date of Service: 09/12/24 Reason for Visit: hospital follow up, hypercoagulable state, chronic thrombocytopenia Assessment: Tara Yun is a 64-year-old female with hypercoagulable syndrome (acquired protein C and proteinS deficiencies in the setting of cirrhosis), recurrent venous thromboembolism as detailed in the problem list below as well as and chronic anemia/thrombocytopenia who returns to the THP clinic today after missing her last follow up visit. Her most recent thrombotic event was a PE after a brief hold of anticoagulation per wrist surgery in February 2024. She was to complete a course of Lovenox 80 mg twice daily x 3 months and then dose reduced to Lovenox 80 mg once daily for long-term secondary prevention per Dr. Padilla. At this time, there is some confusion as she was hospitalized at an outside facility twice plus a recent emergency department visit status post fall and we do not yet have any medical records from the admissions at this time. Per her report Lovenox was increased to 100 mg twice daily though she states no new thromboses were identified during her stay which was primarily for a GI bleed. She also reports her discharge paperwork states she had a colonoscopy however she did not have that procedure during her admission. She sustained a recent fall in the setting of hypotension and has suffered multiple orthopedic injuries. She is seeing her orthopedic surgeon tomorrow for a semiurgent visit to address these. Discussed we should be involved in any anticoagulation interruption plans and that she needs an intricate plan given her recent PE during a brief anticoagulation hold for wrist surgery. Will monitor her chart for updates on the orthopedic side of things and collaborate once there are plans have been reviewed. Plan: - Lovenox 100 mg twice daily for now though hopefully can reduce to Lovenox 80 mg once daily once OSH records have been reviewed - Awaiting OSH records (requested) - contact our office if scheduled for a surgery/invasive procedure requiring a hold of anticoagulation so we may develop an appropriate Thrombosis Action Plan. - contact THP clinic if platelet count < 50K - Education: Reviewed the signs and symptoms of DVT and PE. Reviewed the importance of staying active, hydrated. Avoid NSAIDs, ASA products while on AC. Any head trauma warrants medical eval. - Follow-up: TBD ADDENDUM 09/13/24: Received and reviewed records from [facility]. No evidence of acute thrombosis per imagingor upon review of notes. It appears after her EGD showed no active bleed, they ramped up her Lovenox starting with 40 mg BID, then 80 mg BID (her dose for acute Tx of PE in February 2024) and cited her weight as the reason for discharge on Lovenox 100 mg BID. Given there was no evidence of acute thrombosis, Tara can revert to the dose recommended by Dr. Padilla for prison secondary prevention (Lovenox 80 mg daily). Will message Dr. Butts whom she sees later today to update him and ask him to provide the details necessary for us to create a Thrombosis Action Plan should she need surgery in the near future. Loraine Hu PA-C 09/13/2024 10:24 ADDENDUM 09/17/24: No surgery planned with Dr. Butts though Tara has been referred to Dr. Ansari (visit 09/21/24)for further evaluation. Loraine Hu PA-C 09/17/2024 20:52 Please contact my office with questions/concerns: . [employer]BD[employer] services may have been used for portions of this note. Every effort has been made to proofread for errors though some may unintentionally remain. Please contact me for clarification, if needed. Thank you. I spent a total of 50 minutes on the date of this encounter meeting with the patient and reviewing documentation/coordinating care as described in the above note. Loraine Hu PA-C 09/12/2024 15:06 Thrombosis and Hemostasis Program Problem List: Patient Active Problem List Diagnosis Acute pulmonary edema (HCC-CMS) Mild interstitial edema noted on chest x-ray, July,. Plan: patient has been notified. Repeat chest x-ray to be done in September 2022. Patient aware. 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 H/Hstable. apixaban held. LE US during this admission neg for DVT. Apixaban stopped; -May 2022: Bilat LE U/S for surveillance neg for deep vein thrombosis. -Nov 2022: extension of PVT to [facility] thrombosis, resumed lovenox 60 mg/d for prison anticoagulation -April 2023: admitted for hematemesis due to Shahnaz-Quezada tear. Lovenox 60 mg daily continued -February 2024: provoked pulmonary embolism after wrist fracture and surgery and holding lovenox for 2+ days, Rx lovenox 80 mg BID with intent to continue that for 3 months COPD (chronic obstructive pulmonary disease) (HCC-CMS) (HCC) HUEY (obstructive sleep apnea) Other cirrhosis of liver (HCC-CMS) -NAFLD related cirrhosis with history of decompensation, chronic portal htn, hepatic encephalopathy, small esophageal varices on EGD in 2019, thrombocytopenia/hypersplenism, portal gastropathy. Sees Dr. Moseley -s/p partial splenic embolization (09/28/21) -portal vein thrombosis -Hep C Past provider: Dr. Ijeoma Smith, GI Department in [facility] for long-standing decompensated liver cirrhosis Obesity, Class II, BMI 35-39.9 Lost about 80 lbs over last 2 years - weight was as high at 250-60 Hypothyroidism Chronic pain syndrome Intolerant of Lyrica, Robaxin. Reportedly unable to take acetaminophen due to thrombocytopenia history. Unable to take NSAIDs due to renal insufficiency history. Drug-seeking behavior Per Dr Amelia Tijerina and notes from [facility] patient misconstrued information to several providers about multiple concurrent opiate prescription. -IR embolization 09/28/21 for thrombocytopenia. Counts raised from 30s to 200K Abdominal wall hernia Allergic rhinitis Pancytopenia (HCC) -bone marrow biopsy at [facility] in 2012: maturing trilineage hematopoiesis with no underlying hematopoietic abnormalities Mild persistent asthma without complication Peptic ulcer disease with hemorrhage EGD March 2021:esophagitis and pyloric channel ulcer. Oct 08, 2021: 9-day admission w/ 3 separate EGDs and several units RBC tx. Large posterior duodenalulcer and pyloric ulcer extending into duodenal bulb +mild portal gastropathy as likely sources. RxBID Protonix for 3 months then daily. -01-13-22: EGD NORMAL ([facility]) Thrombocytopenia (HCC-CMS) Took lusutrombopag 3 mg once daily for 7 days, starting 8 to 14 days prior to the scheduled procedure. Patients should undergo procedure 2 to 8 days after the last lusutrombopag dose. Patient did nothave major platelet increment: plt count increased up to 68K -Partial splenic embolization 10/11 for thrombocytopenia with good result until winter when plt settled in the 90s. Remaining spleen hypertrophied on CT January 2022 Nephrolithiasis Subjective: Tara Yun is a 64 y.o. female who presents to the THP clinic today via telemedicine for follow up. Per Chart Review: - In February she had a pulmonary embolism after skipping 3 days of lovenox for wrist surgery, - normal EGD April 2024, repeat in [address] Moseley - per Dr. Padilla in message to patient 06/22/24, recommended Lovenox 80 mg daily and rescheduling her missed THP appt (never read by patient) - dental work plan created in Jun- Lovenox 40 mg day prior to dental extractions, no Lovenox day of, resume Lovenox 80 mg daily day after as long as no undue bleeding - call to hospitalist 07/12/24 re: GI bleed at [facility] in [place] - called in 09/04/24 to say she went to [facility] for GI Bleed and they increased her Lovenox to 100mg 2 times a day. Her most recent plt count is 59, hgb 9.8 - She is seeing Dr Butts in ortho for left wrist fracture and 2 subscapular tears and a high gradebiceps tendon tear Per the patient: - in June 2024, hospitalized few days, transferred from [place] to [place]. Says she hadan EGD that showed irritation (couple spots that looked iffy) but never had a colonoscopy despitewhat the records say - went back to hospital late Jul/early Aug? due to dark stools but was not actively bleeding so discharged without transfusion - this past , took a fall. BP bottomed out -> fall. Didn't lose consiousness. Fell onto R side against fridge, tried to get to bed and fell again and hit her head on the metal bedframe. Had a concussion but no bleed. Goose egg has gone down. States she broke wrist, chipped elbow, 2 RC tears and biceps tendon tear. Sees Ortho tomorrow at [facility] Reports she had a CT Head ([facility] in [place], [place]) that was negative for a bleed - Currently denies BRBPR, melena, hematuria, epistaxis, hemoptysis, hematemesis - No falls since (when she went to ED in [place], [place]) - Denies CP, SOB, ROBB - currently has a little LE edema, symmetric - R calf is firm but it has been like that for a while. No dedicated US recently but symptoms haven't changed either. Pillow under her knee helps relief some pressure - Large bruise on L forearm - Current weight 215 lb - Meeting with Ortho surgeon tomorrow - Sees PCP next week, PCP is at [facility] Medications: Outpatient Encounter Medications as of 09/12/2024: albuterol 90 mcg/actuation inhaler, 1-2 Puff, inhalation, Q4H PRN diclofenac sodium gel, 2 g, topical, BID PRN enoxaparin (LOVENOX) 60 mg/0.6 mL injection, 60 mg, subcutaneous, DAILY (Patient taking differently: 80 mg, subcutaneous, EVERY 12 HOURS) fluticasone propionate (FLOVENT DISKUS) 100 mcg/actuation blister with device, furosemide (LASIX) 20 mg tablet, TAKE 3 TABLETS EVERY DAY. IF FLUID IN LEGS IS WELL CONTROLLED THENCUT DOWN TO 2 EVERY DAY. (Patient taking differently: 40 mg, oral, DAILY, TAKE 3 TABLETS EVERY DAY.IF FLUID IN LEGS IS WELL CONTROLLED THEN CUT DOWN TO 2 EVERY DAY.) gabapentin (NEURONTIN) 300 mg capsule, Take two capsules in the AM, one capsule in the afternoon and two capsules in the evening hydrOXYzine (ATARAX) 25 mg tablet, 25-50 mg, oral, TID PRN INCRUSE ELLIPTA 62.5 mcg/actuation, INHALE 1 PUFF BY MOUTH DIRECTED DAILY lactulose (CHRONULAC) 10 gram/15 mL solution, TAKE 15-30ML BY MOUTH DAILY NEEDED (CONSTIPATION. TARGET GOAL OF TWO BOWEL MOVEMENTS DAILY). levothyroxine (SYNTHROID) 25 mcg tablet, TAKE 1 TABLET BY MOUTH EVERY DAY lidocaine 5 % (LIDODERM) 5 % patch, 1 Patch, transdermal, DAILY (Patient not taking: Reported on 03/02/2024) naloxone (NARCAN) 4 mg/actuation nasal spray, 1 [place], nasal, PRN (Patient not taking: Reported on 03/02/2024) ondansetron (ZOFRAN) 4 mg tablet, 4 mg, oral, Q8H PRN oxyCODONE (ROXICODONE) 5 mg immediate release tablet, 15 mg, oral, Q6H PRN OXYGEN-AIR DELIVERY SYSTEMS MISC, 2 L, misc (non-drug; combo route), QHS spironolactone (ALDACTONE) 100 mg tablet, 50 mg, oral, DAILY sucralfate (CARAFATE) 1 gram tablet, 1 g, oral, QID traZODone (DESYREL) 100 mg tablet, 100 mg, oral, QHS venlafaxine (EFFEXOR-XR) 150 mg XR capsule, 150 mg, oral, DAILY Facility-Administered Encounter Medications as of 09/12/2024: albuterol (ACCUNEB) 2.5 mg /3 mL (0.083 %) nebulizer solution Physical Exam: There were no vitals filed for this visit. Estimated body mass index is 33.89 kg/m?? as calculated from the following: Height as of 05/10/24: 167.6 cm (66). Weight as of 05/10/24: 95.3 kg (210 lb). appears well, alert and oriented x 3, no cough, no respiratory distress, clear and fluent speech, no scleral icterus, no jaundice, no visible rashes. Labs: Basic Metabolic Panel Lab Results Component Value Date NA 138 12/12/2023 K 3.9 12/12/2023 CL 97 12/12/2023 CO2 31 12/12/2023 BUN 19 12/12/2023 CREATININE 1.28 (H) 12/12/2023 CALCGFR 47 (L) 12/12/2023 CALCIUM 9.0 12/12/2023 CALCCA 9.2 07/28/2021 MG 1.7 09/09/2023 PHOS 3.0 09/09/2023 Gastrointestinal Lab Results Component Value Date LDH 320 06/28/2019 ALKPHOS 134 (H) 09/09/2023 AST 48 (H) 09/09/2023 ALT 32 09/09/2023 GGT 47 (H) 11/09/2018 AMMONIA 23 04/29/2023 CONJBILI 0.0 12/14/2022 UNCONJBILI 0.2 12/14/2022 BILIRUBIN Neg 09/20/2017 TBIL 1.1 09/09/2023 TP 6.9 09/09/2023 LABALBU 3.8 09/09/2023 AGRATIO 1.2 09/09/2023 LIPASE 114 09/07/2023 Complete Blood Count Lab Results Component Value Date ABO O 04/29/2023 WBC 3.25 (L) 11/09/2023 RBC 4.27 11/09/2023 HGB 12.7 11/09/2023 HCT 37.8 11/09/2023 MCV 89 11/09/2023 MCH 29.7 11/09/2023 MCHC 33.6 11/09/2023 PLT 103 (L) 11/09/2023 MPV 10.0 11/09/2023 RDWCV 13.5 11/09/2023 Differential (Absolute) Lab Results Component Value Date DIFFTYPE Auto 09/14/2023 NEUTROABS 2.73 09/14/2023 ABSBAND 0.02 04/23/2019 LYMPHSABS 0.37 (L) 09/14/2023 MONOSABS 0.32 09/14/2023 EOSABS 0.03 09/14/2023 BASOSABS 0.02 08/29/2019 MYELOABS 0.02 10/21/2018 Anemia Lab Results Component Value Date IRON 40 05/08/2022 TIBC 427 05/08/2022 FERRITIN 129 05/08/2022 FOLATE 7.5 02/11/2022 [id number] 386 07/28/2022 Coagulation Lab Results Component Value Date PROTIME 13.4 (H) 09/09/2023 INR 1.2 (H) 09/09/2023 PTT 32 05/07/2022 DDIMER 1,494 (H) 12/14/2022 ANTITHROM 69 (L) 10/27/2021 FACTVIIIFA8 188 (H) 10/27/2021 PROTCCLOT 59 (L) 10/27/2021 PROTSCLOT 96 10/27/2021 DRVVT 38.5 10/27/2021 Patient read off lab results from 09/10/24 (ED at [facility]): WBC 1.55 RBC 3.32 Hgb 9.8 Hct 30.5 MCV 91.9 MCH 29.5 MCHC 32.1 RDW 14.7 Plt 59K MPV 10.5 Imaging: Requested, awaiting receipt of relevant imaging performed at [facility] Telemedicine visit information: The concept of ???Telemedicine?? has been described [...] in patient???s medical or mental health care. TELEMEDICINE VIDEO VISIT Today's visit was provided through telemedicine video conferencing: I have reviewed the appropriateness of using video technology with the patient with regards to today's visit. The location of the patient : Home (where patient lives) The location of the provider: Office The following people and their roles were present for today's visit: Appointment Provider: Loraine Hu PA-C Patient Loraine Hu PA-C CC: Gabriel Gandara documented in this encounter Plan of Treatment Upcoming Encounters Date Type Department Care Team (Late st Contact Info) Description 01/04/2025 13:00 EST Office Visit [facility] Ophthalmology - [address] [phone] Gagandeep Rome MD [address] [place] [address], [facility] [address] [place] [phone] 02/11/2025 13:30 EDT Telemedicine [facility] Hematology & Oncology [address] [phone] Dana Padilla MD [address] [place] [address], [facility] [address] [place] [address] documented as of this encounter Visit Diagnoses Diagnosis Secondary hypercoagulable state (HCC-CMS)- Primary Secondary hypercoagulable state documented in this encounter Discontinued Medications Medication Sig Discontinue Reason Start Date End Da te fluticasone propionate (FLOVENT DISKUS) 100 mcg/actuation blister with device Alternate therapy 09/12/2024 hydrOXYzine (ATARAX) 25 mg tablet TAKE 1-2 TABLETS BY MOUTH 3 TIMES DAILY NEEDED FOR ANXIETY. Error 11/04/2023 09/12/2024 enoxaparin (LOVENOX) 60 mg/0.6 mL injection Inject 60 mg into the skin daily. 10/19/2023 09/14/2024 documented as of this encounter Historical Medications * This list may reflect changes made after this encounter. budesonide-formot gregg HFA (SYMBICORT) 160-4.5 mcg/actuation HFA aerosol inhaler inhaler Inhale 1 Puff as directed 2 times daily. added in this encounter Care Teams Crozer Relationship Specialty Start Date End Date Mirna Guerrero PA [address] [place] [id number] PCP - General 09/12/24 documented as of this encounter
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
--- OUTSIDE RECORDS SUMMARY | 2024-11-22 16:49 | XMS_ITS | Encounter Summary ---
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 Butts tomorrow per her request. Called and let her know it was done. documented in this encounter Plan of Treatment Upcoming Encounters Date Type Department Care Team (Late st Contact Info) Description 01/04/2025 13:00 EST Office Visit [facility] Ophthalmology - [address] [phone] Gagandeep Rome MD [address] [place] [address], [facility] 5 [place] [address] 02/11/2025 13:30 EDT Telemedicine [facility] Hematology & Oncology - [address] [address] Dana Padilla MD [address] [place] [address], [facility] 2 [place] [phone] documented as of this encounter Visit Diagnoses Not on filedocumented in this encounter Care Teams Truck Hopper Relationship Specialty Start Date End Date Mirna Guerrero PA [address] [place] [address] PCP - General 09/12/24 documented as of this encounter
--- OUTSIDE RECORDS SUMMARY | 2024-11-22 16:49 | XMS_ITS | Encounter Summary ---
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 Not on file [...] encounter Miscellaneous Notes * Telephone Encounter - aMritza Miller RN - 09/13/2024 1714 EDT Pt advised to resume lovenox 80mg SC daily per Lesly Hu PA-C documented in this encounter Plan of Treatment Upcoming Encounters Date Type Department Care Team (Late st Contact Info) Description 01/04/2025 13:00 EST Office Visit [facility] Ophthalmology - [address] [phone] Gagandeep Rome MD [address] [place] [address], [facility] 5 [place] [phone] 02/11/2025 13:30 EDT Telemedicine [facility] Hematology & Oncology [address] [phone] Dana Padilla MD [address] [place] [address], [facility] 2 [place] [address] documented as of this encounter Visit Diagnoses Not on filedocumented in this encounter Care Teams Database Administrator Relationship Specialty Start Date End Date Mirna Guerrero PA [address] [place] [id number] PCP - General 09/12/24 documented as of this encounter
--- OUTSIDE RECORDS SUMMARY | 2024-11-22 16:49 | XMS_ITS | Encounter Summary ---
Author Organization [facility] Address [address] [place] [address] Care Team Providers Care Regional Commercial Sales Manager Name Role Phone Izabella Snowden SHIM PLUG CUTTER Unavailable [phone] Gabriel Gandara Primary Care Provider Mirna Guerrero Primary Care Provider + Reason for Visit * Reason Onset Date Comments Paperwork request 05/01/2024 Encounter Details Date Type Department Care Team (Late st Contact Info) Description 05/01/2024 Telephone [facility] Gastroenterology - [facility] [address] [place], [place] [phone] Micheal Moseley MD PhD [address] [place] [address], [address] [place] [address] Paperwork request Social History Tobacco Use Types Packs/Day Years [...] 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 Moseley on 05/10/24. The form is on their website. documented in this encounter Plan of Treatment Upcoming Encounters Date Type Department Care Team (Late st Contact Info) Description 01/04/2025 13:00 EST Office Visit [facility] Ophthalmology - [address] [phone] Gagandeep Rome MD [address] [place] [address], [facility] [address] [place] [address] 02/11/2025 13:30 EDT Telemedicine [facility] Hematology & Oncology [address] [phone] Dana Padilla MD [address] [place] [address], [facility] 2 [place] [address] documented as of this encounter Visit Diagnoses Not on filedocumented in this encounter Care Teams Regional Commercial Sales Manager Relationship Specialty Start Date End Date Gabriel Gandara PA 1 [facility], [address] [place] [phone] PCP - General 03/19/24 09/11/24 Mirna Guerrero PA [address] [place] [address] PCP - General 09/12/24 Izabella Snowden LICSW 1 [facility], [address] [place] [phone] Karate Black Belt 02/21/23 05/03/24 documented as of this encounter
--- OUTSIDE RECORDS SUMMARY | 2024-11-22 16:49 | XMS_ITS | Encounter Summary ---
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 on file Not [...] * Telephone Encounter - Heike Bowie - 05/23/2024 1030 EDT # no longer in service documented in this encounter Plan of Treatment Upcoming Encounters Date Type Department Care Team (Late st Contact Info) Description 01/04/2025 13:00 EST Office Visit [facility] Ophthalmology - [address] [address] Gagandeep Rome MD [address] [place] [address], [facility] 5 [place] [phone] 02/11/2025 13:30 EDT Telemedicine [facility] Hematology & Oncology - [address] [phone] Dana Padilla MD [address] [place] [address], [facility] 2 [place] [address] documented as of this encounter Visit Diagnoses Not on filedocumented in this encounter Care Teams Felt Hooker Relationship Specialty Start Date End Date Gabriel Gandara PA PCP - General 03/19/24 09/11/24 documented as of this encounter
--- OUTSIDE RECORDS SUMMARY | 2024-11-22 16:50 | XMS_ITS | Encounter Summary ---
Author Organization [facility] Address [address] [place] [address] Care Team Providers Care Plug Wirer Name Role Phone Izabella Snowden RFID STRATEGIST Unavailable [phone] Gabriel Gandara Primary Care Provider [phone] Encounter Details Date Type Department Care Team (Latest Contact Info) Description 03/21/2024 Plan of Care Documentation [facility] Rehabilitation Therapy - [address] [address] Social History Tobacco Use Types Packs/Day Years [...] place to sleep or slept in a assisted (including now)? 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 Not on file [...] documented in this encounter Progress Notes * Cris Dumont, OTR/L CHT - 03/21/2024 1454 EDT Outpatient Rehab Plan of Care Assessment Occupational Therapy examination reveals the following impairments: activity tolerance, edema, integumentary (skin) integrity, muscle strength, range of motion These impairments are contributing to the following activity limitations and participation restrictions: home management tasks, independent living skills, self-care, lifting The patient's prior level of function was: Independent Current status is: below prior level of function Medical Necessity: occupational therapy is medically necessary to provide compensatory and remediation training to maximize the patient's independence and participation in activities of daily living and instrumental activities of daily living. Mcfp Goals: Goals: All goals are met The patient independently demonstrates home program, as well as proper progression The patient is independent in orthosis schedule and/or weaning to promote healing, decrease pain and promote function The patient is independent in understanding protocol/precautions Plan Necessity: Discontinue occupational therapy services at [facility]. Necessity Comments: Pt to continue therapy locally as she lives 3 hours away. Referral and therapist number issued to pt. Pt to contact therapist and schedule for next week. Pt is independent in HEP and orthosis use / schedule issued today. Cris Dumont, ROGELIOR/L CHT, 03/21/2024, 14:51 ATTENDING PHYSICIAN: Medicare certification needed. Your signature indicates you approve the therapy goals and plan of care outlined on this document dated 03/19/2024. Thank you! Attending Physician Signature Date documented in this encounter Plan of Treatment Upcoming Encounters Date Type Department Care Team (Late st Contact Info) Description 01/04/2025 13:00 EST Office Visit [facility] Ophthalmology - [address] [phone] Gagandeep Rome MD [address] [place] [address] 5 [place] [phone] 02/11/2025 13:30 EDT Telemedicine [facility] Hematology & Oncology [address] [phone] Dana Padilla MD [address] [place] [address] 2 [place] [address] documented as of this encounter Visit Diagnoses Not on filedocumented in this encounter Care Teams Plug Wirer Relationship Specialty Start Date End Date Gabriel Gandara PA 1 [facility], [address] [place] [address] PCP - General 03/19/24 09/11/24 Izabella Snowden, RFID STRATEGIST 1 [facility], [address] [place] [phone] Commercial Leasing Manager 02/21/23 05/03/24 documented as of this encounter
--- OUTSIDE RECORDS SUMMARY | 2024-11-22 16:50 | XMS_ITS | Encounter Summary ---
Author Organization [facility] Address [address] [place] [address] Care Team Providers Care Optical Lab Technician Name Role Phone Izabella Snowden ANIMAL BOUNTY HUNTER Unavailable [phone] None, Provider Primary Care Provider Unavailabl e Reason for Visit * Reason Onset Date Comments Labs Only 03/01/2024 Orders Encounter Details Date Type Department Care Team (Late st Contact Info) Description 03/01/2024 Telephone [facility] Hand & Upper Extremity Program - [address] [address] Riky Butts MD [address] [place] [phone] Labs Only (Orders/) Social History Tobacco Use Types Packs/Day Years [...] 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 No Kate Medellin 03/01/2024 9:03 documented in this encounter Plan of Treatment Upcoming Encounters Date Type Department Care Team (Late st Contact Info) Description 01/04/2025 13:00 EST Office Visit [facility] Ophthalmology - [address] [phone] Gagandeep Rome MD [address] [place] [address], [address] 5 [place] [address] 02/11/2025 13:30 EDT Telemedicine [facility] Hematology & Oncology - [facility] [address] [place], [place] [phone] Dana Padilla MD [address] [facility], [address] 2 [place] [address] documented as of this encounter Visit Diagnoses Not on filedocumented in this encounter Care Teams Optical Lab Technician Relationship Specialty Start Date End Date None, Provider PCP - General 02/24/24 03/18/24 Izabella Snowden, ANIMAL BOUNTY HUNTER 1 [facility], 3rd [place] [address] Corporate Administrator 02/21/23 05/03/24 documented as of this encounter
--- OUTSIDE RECORDS SUMMARY | 2024-11-22 16:50 | XMS_ITS | Encounter Summary ---
Author Organization [facility] Address [address] [place] [address] Care Team Providers Care Marine Farmer Name Role Phone Izabella SnowdenSW Unavailable [phone] None, Provider Primary Care Provider Gabriel Wei Primary Care Provider [phone] Mirna Guerrero Primary Care Provider + Reason for Visit * Reason Onset Date Comments Post-OP Follow Up 03/13/2024 Encounter Details Date Type Department Care Team (Late st Contact Info) Description 03/13/2024 Telephone [facility] Hand & Upper Extremity Program - [address] [address] Riky Butts MD [address] [place] [phone] Post-OP Follow Up Social History Tobacco Use Types Packs/Day Years [...] 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 (5 years old or older) Answer Entry Date Author No 09/08/2023 17:08 Aj Hall RN documented in this encounter Miscellaneous Notes * Telephone Encounter - Elle Guzman RN - 03/13/2024 1344 EDT Attempted to return call to Tara. She did not answer. PC to [facility]. Will need follow up with hematology. Per note in patient chart, Dr Padilla has advised her to follow up within the month and this can be done via telemedicine. Spoke with Vale the nurse at [facility] who states the plan at this time is for Tara to be discharged tomorrow. Advised if she is discharged tomorrow she should present to her post-op appointment as scheduled on 03/[address] Butts in order to have postop splint taken down, sutures removed and splint placed. Requested that Martha communicate to the office if the patient is not going to be discharged tomorrow in order to make new arrangements for her post-op follow up with Dr Butts. Vale agreed to callback tomorrow with updates. * Telephone Encounter - Alfred Miller - 03/13/2024 1152 EDT Reason for Call: Post-OP Follow Up Summary: Patient is currently admitted to a hospital in [place] for blood clots that formed in her lungsand will not be able to make the appointment. She has been told she should be available early next week to reschedule. They will be trying to get her an appointment with Hematology the same day to cut down on her round trips. Appointment Offered? No Alfred Miller 03/13/2024 11:52 documented in this encounter Plan of Treatment Upcoming Encounters Date Type Department Care Team (Late st Contact Info) Description 01/04/2025 13:00 EST Office Visit [facility] Ophthalmology - [address] [phone] Gagandeep Rome MD [address] [place] [address] 5 [place] [phone] 02/11/2025 13:30 EDT Telemedicine [facility] Hematology & Oncology - [address] [phone] Dana Padilla MD [address] [place] [address] [address] [place] [phone] documented as of this encounter Visit Diagnoses Not on filedocumented in this encounter Care Teams Marine Farmer Relationship Specialty Start Date End Date None, Provider PCP - General 02/24/24 03/18/24 Gabriel Gandara PA PCP - General 03/19/24 09/11/24 Mirna Guerrero PA [address] [place] [id number] PCP - General 09/12/24 Izabella Snowden, MANAGER DRILLING [address] [place] [address], [address] [place] [address] Color Grinder 02/21/23 05/03/24 documented as of this encounter
--- OUTSIDE RECORDS SUMMARY | 2024-11-22 16:50 | XMS_ITS | Encounter Summary ---
Author Organization [facility] Address [address] [place] [address] Care Team Providers Care Disbursement Clerk Name Role Phone Izabella Snowden [facility] Unavailable [phone] None, Provider Primary Care Provider Unavailabl e Reason for Visit * Auth/Cert (Routine) Specialty Diagnoses / Procedures Referred By [facility] Referred To Contact Diagnoses Closed fracture of left wrist, initial encounter Closed fracture of left wrist, initial encounter [S62.102A] Procedures ID OPTX DSTL RADL I-ARTIC FX/EPIPHYSL SEP 3 FRAG Open Reduction Internal Fixation Left Distal Radius Referral ID Status Reason Start Date Expiration Date Visits Re quested Visits Authorized [id number] 1 1 Encounter Details Date Type Department Care Team (Late st Contact Info) Description 03/02/2024 13:35 EDT Anesthesia Event [facility] Operating Room [address] [place] [address] Chrissy Arceo MD 111 [facility], Level 2 [place] [address] Anthony Velazquez MD [address] [place] [address] Anesthesia Record Procedure Summary Procedure Name Responsible Anesthesiologist Anesthesia Start Time Anesthesia Stop Time Open Reduction Internal Fixation Left Distal Radius (Left: Wrist) Chrissy Arceo MD 03/02/24 1335 03/02/24 1457 Events Date Time Event Comment 03/02/2024 1335 An Start The patient was re-evaluated immediately before moderate or deep sedation use, before anesthesia induction, or before the anesthesia procedure. 1335 An Start Data 1340 An Induction The patient was reevaluated immediately before moderate or deep sedation use and before anesthesia induction. 1345 An Intubation 1352 Anesthesia Ready 1357 An Tourn Inflated Tourniquet Inflated - Location = LUE, Pressure = 250 mmHg 1440 An Tourn Deflated Tourniquet Deflated - Duration = 43 minutes 1445 An Extubation 1448 an stop data 1456 Handoff to RN I completed my handoff to the receiving nurse during which we: 1. Identified the patient 2. Identified the responsible provider 3. Reviewed the pertinent medical history 4. Discussed the surgical course 5. Reviewed intra-op anesthesia management and issues during anesthesia 6. Set expectations for post-procedure period 7. Allowed opportunity for questions and acknowledgement of understanding. 1457 An Stop Meds Name Total dexaMETHasone (DECADRON) injection 4 mg/ mL (for IV doses up to 10mg) 8 mg fentanyl citrate (PF) injection 150 mcg midazolam (versed) 1 mg/mL 2 mL vial 1 m g ondansetron (PF) (ZOFRAN) injection 4 mg propOFol (DIPRIVAN) injection 150 mg rocuronium 10 mg/mL vial 60 mg sugammadex 100 mg/mL 2 mL vial 200 mg ceFAZolin in dextrose 5 % (ANCEF) IVPB D UPLEX 2 g 2 g lactated ringers (LR) infusion 800 mL * Agents Name Insp Sevoflurane Exp Sevoflurane O2 N2O Air * Blood No blood administrations on file. Lines, Drains, and Airways Type Details Placement Removal Wound 03/02/24; 1358; Anterior, Left; Wrist; incision 03/02/24 1358 by Stacey Layton, KENN Peripheral IV 03/02/24; 1204; 20; Other (1.88); BD Insyte AutoGuard BC; Anterior, Right; Forearm; Inserted by RN, Ultrasound Guided; 3; None; Chlorhexidine; 03/02/24; 181; No complications, Dressing applied 03/02/24 1204 by Samson Landa RN 03/02/24 181 by Lucie Billings RN Non-Surgical Airway 03/02/24; 1415 (cresky lawrence via procedure documentation); 03/02/24; 1445 03/02/24 1415 by Anthony Velazquez MD 03/02/24 1445 by Anthony Velazquez MD documented in this encounter Social History Tobacco [...] 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 [facility] Vitals Value Taken Time BP 139/83 03/02/24 1455 Temp 97 03/02/24 1457 Resp 19 03/02/24 1457 Pulse From Oximetry 105 BPM 03/02/24 1457 SpO2 93 % 03/02/24 1457 Heart Rate 102 BPM 03/02/24 1457 Vitals shown include unvalidated device data. Last Pain Score - Numeric Pain Level (Scale 1-10): 10 Type of Anesthesia - general Anesthesia Post Evaluation Post-procedure vitals reviewed and are stable. Level of consciousness: awake Temperature status: normothermia and patient returned to pre-procedure baseline Respiratory status: airway patent and stable Cardiovascular status: stable Hydration status: adequate Nausea/Vomiting: none Pain management: adequate Post-Op Assessment: patient tolerated procedure well with no complications Patient participation: able to participate Disposition: outpatient/home Anesthesia Complications: No apparent anesthesia complications * Anesthesia Procedure Notes - Anthony Velazquez MD - 03/02/2024 1415 EDT Associated Order(s): Airway Airway Date/Time: 03/02/2024 13:45 Urgency: elective Airway not difficult General Information and Staff Patient location during procedure: OR Anesthesiologist: Chrissy Arceo MD Resident/BRIM SETTER: Anthony Velazquez MD Performed: anesthesiologist and resident/BRIM SETTER/AA Performed by: Anthony Velazquez MD Authorized by: Chrissy Arceo MD Indications and Patient Condition Indications for airway management: anesthesia Sedation level: GA Preoxygenated: yes Patient position: sniffing Ventilation assessment: 2 - Oral airway inserted Final Airway Details Final airway type: endotracheal airway Successful airway: ETT Cuffed: yes Successful intubation technique: video laryngoscopy [place] Facilitating devices/methods: intubating stylet Endotracheal tube insertion site: oral Blade: Jakob Blade size: #3 ETT size (mm): 7.5 Cormack-Lehane Classification: view obtained with video laryngoscopy Placement verified by: chest auscultation and capnometry Measured from: teeth ETT to teeth (cm): 18 Number of attempts at approach: 1 Additional Comments Ramped, gan, somewhat anterior still, but not difficult airway * Anesthesia Preprocedure Evaluation - Chrissy Arceo MD - 03/01/20241951 EDT Anesthesia Preprocedure Evaluation Patient Medical History, including Anesthesia History reviewed. Chart and Nursing Notes reviewed, including NPO status and Medication History. Additional ROS/History Findings: 63 yof undergoing orif of L wrist for fx BMI 39 Allergies to morphine, sulfa (abx), reglan, ambien, lyrica, prochlorperazine. Hx of anx, dep, COPD, asthma, HUEY, cirrhosis, c/b portal and splenic vein thromboses, eosphageal varices, gerd, hypothryroidism, RA Meds: oxycodone, hydroxyzine, gabapentin, flovent, albuterol, home O2, lovenox, spironolactone, lasix, sucralfate, synthroid Crit 35, plt 96 Prior anesthetics: Multiple EGDs. Prior airway w/ mask w/ OPA, 2b view with mac 3 Stress test 2021 negative Echo 2021 w/ normal LV and RV size and function. No significant valvular abnormalities Allergies Allergen Reactions Metoclopramide Nausea Only, Other (See Comments) and Shortness Of Breath Other reaction(s): RASH, SOB Jittery Morphine Anaphylaxis Sulfa (Sulfonamide Antibiotics) Anaphylaxis Tylenol [Acetaminophen] Other (See Comments) Contraindication with medical hx Flagyl [Metronidazole] Other (See Comments) Fatigue Ambien [Zolpidem] Other (See Comments) Amnesia--in [facility]. [place]; let to psych admission. Aspirin Other (See Comments) Contraindication with medical hx Injectafer [Ferric Carboxymaltose] Lyrica [Pregabalin] Anxiety Insomnia Prochlorperazine Reglan [Metoclopramide Hcl] Rash Review of Systems Constitutional: Negative. Respiratory: Negative. Cardiovascular: Negative. Gastrointestinal: Positive for heartburn. Sucralfate Hx of GI bleed Neurological: Negative. Endo/Heme/Allergies: Bruises/bleeds easily. Past Medical History: Diagnosis Date Anemia Noted 01/24/2023: on Iron Anxiety Asthma Noted 01/24/2023: prescribed inhalers Bursitis right shoulder C. difficile colitis 07/25/2015 Hospitalized after kidney stone removal Chronic kidney disease Noted 05/17/23-Stage 3 Kidney disease Chronic thrombosis of splenic vein 05/17/23- on enoxaparin Cirrhosis of liver ([facility]) Noted 05/11/23 Community acquired pneumonia january 2021 COPD exacerbation ([facility]) 04/26/2020 05/17/23 chronic hypoxic respiratory failure due to COPD on 2 L NC at baseline Depression Drug-seeking behavior Per Dr Amelia Tijerina and notes from [facility] patient misconstrued information to several providers about multiple concurrent opiate prescriptions Environmental allergies Exercise involving walking takes a walk daily for 20 minutes; 01/11/22- weather dependant; Some SOB; cannot do stairs without stopping due to breathing and leg pain- GERD (gastroesophageal reflux disease) Noted 01/24/2023: on med Hematemesis Noted 05/11/23-Recently hospitalized on 04/29/23 History of kidney stones Hypersplenism syndrome Hypothyroidism Joint replaced 199912/10/2020 nya knees Mental disorder QUIROZ (nonalcoholic steatohepatitis) with cirrhosis Pancytopenia ([facility]) Noted 05/11/23-Bone marrow Bx at [facility] in 2012, Maturing trilineage hematopoiesis with no underlying hematopoietic abnormalities Poor dentition multiple missing teeth- Rheumatoid arthritis Secondary hypercoagulable state (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 Extension to SVT when anticoagulation held post GI bleeding, now on lovenox 60/d. -04/23/21: Nonocclusive portal vein thrombosis (abd pain), chronic and increased; Lovenox 40 mg SC daily - stopped 7-8 due to thrombocytopenia, frequent falls aind intermittent GIB. -10/08/2021: 10 da Sleep apnea 05/17/23- not on CPAP Swelling Takes diuretic, on and off throughout day; BLE; 01/11/22- Thrombocytopenia ([facility]) 12/10/2020 - see 11/20/2020 Dr. Veronica H&P, (managed by Starr Paieg MD) Thyroid disease Relevant Problems Anesthesia (+) HUEY (obstructive sleep apnea) PULMONARY (+) COPD (chronic obstructive pulmonary disease) ([facility]) (HCC) (+) Mild persistent asthma without complication (+) HUEY (obstructive sleep apnea) CARDIOVASCULAR (+) 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[facility]) GASTROINTESTINAL (+) Peptic ulcer disease with hemorrhage /Renal (+) Nephrolithiasis (+) Other cirrhosis of liver (HCC-CMS) (+) Stage 3a chronic kidney disease (HCC-CMS) ENDO/GI (+) Hypothyroidism Other (+) Hypersplenism Physical Exam Airway Mallampati: IV TM distance: <3 FB Neck ROM: limited Cardiovascular Rhythm: regular Rate: normal Dental Comments: Broken teeth upper and one tooth lower Pulmonary Breath sounds clear to auscultation Abdominal Anesthesia Plan ASA 4 Anesthesia Type - general Anesthesia plan and risks discussed. Informed consent obtained from patient. Specific risks discussed were post-op intubation, vomiting, nausea, ICU placement, and myocardial infarction (patient is refusing nerve block despite strong encouragement to avoid GA). PAT Note Notes from 01/31/24 through 03/01/24 No notes of this type exist for this encounter. documented in this encounter Plan of Treatment Upcoming Encounters Date Type Department Care Team (Late st Contact Info) Description 01/04/2025 13:00 EST Office Visit [facility] Ophthalmology - [address] [phone] Gagandeep Rome MD [address] [place] [address], [facility] [address] [place] [address] 02/11/2025 13:30 EDT Telemedicine [facility] Hematology & Oncology [address] [phone] Dana Padilla MD [address] [place] [address], [address] [place] [address] documented as of this encounter Procedures Procedure Name Priority Date/Time Associated Diagnosis Comments ANESTHESIA INTUBATION Routine 03/02/2024 13:45 EDT documented in this encounter Results * ID AN ELECTIVE ENDOTRACHEAL AIRWAY (03/02/2024 13:45 EDT) Narrative Anthony Velazquez MD - 03/02/2024 13:45 EDT Anthony Velazquez MD ? 03/02/2024 14:15 Airway Date/Time: 03/02/2024 13:45 Urgency: elective Airway not difficult General Information and Staff Patient location during procedure: OR Anesthesiologist: Chrissy Arceo MD Resident/BRIM SETTER: Anthony Velazquez MD Performed: anesthesiologist and resident/BRIM SETTER/AA Performed by: Anthony Velazquez MD Authorized by: Chrissy Arceo MD ?? Indications and Patient Condition Indications for airway management: anesthesia Sedation level: GA Preoxygenated: yes Patient position: sniffing Ventilation assessment: 2 - Oral airway inserted Final Airway Details Final airway type: endotracheal airway Successful airway: ETT Cuffed: yes Successful intubation technique: video laryngoscopy [place] Facilitating devices/methods: intubating stylet Endotracheal tube insertion site: oral Blade: Jakob Blade size: #3 ETT size (mm): 7.5 Cormack-Lehane Classification: view obtained with video laryngoscopy Placement verified by: chest auscultation and capnometry Measured from: teeth ETT to teeth (cm): 18 Number of attempts at approach: 1 Additional Comments Ramped, gan, somewhat anterior still, but not difficult airway us Chrissy Arceo MD ANESTHESIA ORDERABLES Fi nal Result documented in this encounter Visit Diagnoses Not on filedocumented in this encounter Administered Medications Inactive Administered Medications - up to 3 most recent administrations Medication Order MAR Action Action Date Dose Rate Site ceFAZolin in dextrose 5 % (ANCEF) IVPB DUPLEX 2 g 2 g, intravenous, Administer over 30 Minutes, PRE-OP ONCE, 1 dose, On Tue03/02/24 at 1200, Type of Therapy: Prophylaxis, Suspected Indication (Select all that apply): Surgical prophylaxis, Routine, PreprocedureIndications:Closed fracture of left wrist with routine healing, subsequent encounter Given 03/02/2024 13:49 EDT 2 g dexAMETHasone (DECADRON) injection intravenous, PRN, Starting on Tue03/02/24 at 1347, Until Tue03/02/24 at 1457, Routine, Anesthesia Intraprocedure Given 03/02/2024 13:47 EDT 8 mg fentaNYL citrate (PF) injection intravenous, PRN, Starting on Tue03/02/24 at 1338, Until Tue03/02/24 at 1457, Routine, Anesthesia Intraprocedure Given 03/02/2024 14:15 EDT 50 mcg Given 03/02/2024 14:03 EDT 50 mcg Given 03/02/2024 13:38 EDT 50 mcg lactated ringers (LR) infusion at 25 mL/hr, intravenous, CONTINUOUS, Starting on Tue03/02/24 at 1200, Until Tue03/03/24 at 0606, Routine, PreprocedureIndications:Clos ed fracture of left wrist with routine healing, subsequent encounter Continued by Anesthesia 03/02/2024 13:35 EDT 2 5 mL/hr New Bag 03/02/2024 12:20 EDT 25 mL/hr IV midazolam (PF) (VERSED) injection intravenous, PRN, Starting on Tue03/02/24 at 1338, Until Tue03/02/24 at 1457, Routine, Anesthesia Intraprocedure Given 03/02/2024 13:38 EDT 1 mg ondansetron (PF) (ZOFRAN) injection intravenous, PRN, Starting on Tue03/02/24 at 1436, Until Tue03/02/24 at 1457, Routine, Anesthesia Intraprocedure Given 03/02/2024 14:36 EDT 4 mg propOFol (DIPRIVAN) injection intravenous, PRN, Starting on Tue03/02/24 at 1341, Until Tue03/02/24 at 1457, Routine, Anesthesia Intraprocedure Given 03/02/2024 13:41 EDT 150 mg rocuronium (ZEMURON) injection intravenous, PRN, Starting on Tue03/02/24 at 1341, Until Tue03/02/24 at 1457, Routine, Anesthesia Intraprocedure Given 03/02/2024 13:41 EDT 60 mg sugammadex (BRIDION) injection intravenous, PRN, Starting on Tue03/02/24 at 1436, Until Tue03/02/24 at 1457, Routine, Anesthesia Intraprocedure Given 03/02/2024 14:36 EDT 200 mg documented in this encounter Orders Medications Ordered That Luc ht Not Have Been Administered Count Last Ordered Date First Ordered Date propOFol (DIPRIVAN) 500 mg i n 50 mL infusion 1 03/02/2024 documented in this encounter Care Teams Disbursement Clerk Relationship Specialty Start Date End Date None, Provider PCP - General 02/24/24 03/18/24 Izabella Snowden, POULTRY SEXER 1 [facility], [address] [place] [address] Customer Counter Associate 02/21/23 05/03/24 documented as of this encounter
--- OUTSIDE RECORDS SUMMARY | 2024-11-22 16:50 | XMS_ITS | Encounter Summary ---
Author Organization [facility] Address [address] [place] [address] Care Team Providers Care Drawer Maker Name Role Phone Izabella Snowden [facility] Unavailable [phone] Gabriel Gandara Primary Care Provider [phone] Reason for Visit * Reason Onset Date Comments Appointment Related 03/21/2024 Encounter Details Date Type Department Care Team (Late st Contact Info) Description 03/21/2024 Telephone [facility] Cancer Center Hematology & Oncology - [address] [phone] Dana Padilla MD 111 [facility], [facility] 2 [place] [address] Appointment Related Social History Tobacco [...] 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 I have your f/u w/ RS on 05.22 at 220 pm. documented in this encounter Plan of Treatment Upcoming Encounters Date Type Department Care Team (Late st Contact Info) Description 01/04/2025 13:00 EST Office Visit [facility] Ophthalmology - [address] [phone] Gagandeep Rome MD [address] [place] [address], [facility] 5 [place] [phone] 02/11/2025 13:30 EDT Telemedicine [facility] Hematology & Oncology - [address] [phone] Dana Padilla MD [address] [place] [address], [facility] 2 [place] [phone] documented as of this encounter Visit Diagnoses Not on filedocumented in this encounter Care Teams Drawer Maker Relationship Specialty Start Date End Date Gabriel Gandara PA 1 [facility], [address] [place] [address] PCP - General 03/19/24 09/11/24 Izabella Snowden, [facility] 1 [facility], [address] [place] [address] C D Area Supervisor 02/21/23 05/03/24 documented as of this encounter
--- OUTSIDE RECORDS SUMMARY | 2024-11-22 16:50 | XMS_ITS | Encounter Summary ---
Author Organization [facility] Address [address] [place] [address] Care Team Providers Care Residential Supervisor Name Role Phone Izabella Snowden [facility] Unavailable [phone] Gabriel Gandara Primary Care Provider Encounter Details Date Type Department Care Team (Late st Contact Info) Description 03/27/2024 Patient Outreach [facility] Adult Primary Care - [place] 2 [place] [address] Izabella Snowden, [facility] 1 [facility], 3rd [place] [address] Social History Tobacco Use Types Packs/Day Years [...] place to sleep or slept in a residential (including now)? 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 TOPIC OF CONVERSATION: Reviewed assessment and plan from previous visit with patient. Engaged patient in conversation related to positive behavior change, self- management, goal setting and action planning using motivational interviewing and active listening. Patient is feeling well supported in her new community and with her new medical providers-she is continuing with her specialty care in [place]. Medication reviewed: No new needs identified Social determinants of health needs reviewed: No new needs identified Gaps in community resources: No new needs identified Education provided on condition and/or disease: no Prioritized Patient Identified Goals: Patient will reach out to her primary Dr. Veronica within the next 2 weeks to discuss transition to new PCP. Achievement towards goals: Completed Plan: No further outreach scheduled. Patient has transitioned her primary care to a new provider. DARNELL MCCORMICK 03/27/2024 14:08 documented in this encounter Plan of Treatment Upcoming Encounters Date Type Department Care Team (Late st Contact Info) Description 01/04/2025 13:00 EST Office Visit [facility] Ophthalmology - [address] [address] Gagandeep Rome MD 111 [facility], Level 5 [place] [phone] 02/11/2025 13:30 EDT Telemedicine [facility] Cancer Center Hematology & Oncology - [address] [phone] Dana Padilla MD 111 [facility], Level 2 [place] [address] documented as of this encounter Visit Diagnoses Not on filedocumented in this encounter Care Teams Residential Supervisor Relationship Specialty Start Date End Date Gabriel Gandara PA 1 [facility], 3rd [place] [phone] PCP - General 03/19/24 09/11/24 Izabella Snowden, SUPERVISOR HIDE HOUSE 1 [facility], 3rd [place] [address] Flash Welding Machine Operator 02/21/23 05/03/24 documented as of this encounter
--- OUTSIDE RECORDS SUMMARY | 2024-11-22 16:50 | XMS_ITS | Encounter Summary ---
Author Organization [facility] Address [address] [place] [address] Care Team Providers Care Cemetery Manager Name Role Phone Izabella Snowden [facility] Unavailable [phone] Gabriel Gandara Primary Care Provider [phone] Reason for Visit * Reason Comments Medications Refill Encounter Details Date Type Department Care Team (Late st Contact Info) Description 03/26/2024 Refill [facility] Adult Primary Care - [place] 2 [place] [address] Emigdio Veronica MD 2 [place] [address] Medications Refill Social History Tobacco Use Types Packs/Day Years [...] 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 Not on file [...] Visit [facility] Ophthalmology - [address] [phone] Gagnadeep Rome MD [address] [place] [address] 5 [place] [phone] 02/11/2025 13:30 EDT Telemedicine [facility] Hematology & Oncology - [address] [phone] Dana Padilla MD [address] [place] [address], Level 2 [place] [address] documented as of this encounter Visit Diagnoses Not on filedocumented in this encounter Care Teams Cemetery Manager Relationship Specialty Start Date End Date Gabriel Gandara PA 1 [facility], 3rd [place] [address] PCP - General 03/19/24 09/11/24 Izabella Snowden, COMPUTER REPAIR INSTRUCTOR 1 [facility], 3rd [place] [address] Work Force Advisor 02/21/23 05/03/24 documented as of this encounter
--- OUTSIDE RECORDS SUMMARY | 2024-11-22 16:50 | XMS_ITS | Encounter Summary ---
Author Organization [facility] Address [address] [place] [address] Care Team Providers Care Fishing Manager Name Role Phone Izabella Snowden [facility] Unavailable None, Provider Primary Care Provider Gabriel Wei Primary Care Provider Mirna Guerrero Primary Care Provider + Reason for Referral * PT/OT/ST (STAT) - New Request Specialty Diagnoses / Procedures Referred By Serene huitron Referred To Contact Rehab Therapies Diagnoses Closed fracture of left wrist with routine healing, subsequent encounter Riky Butts MD [address] [place] [address] Phone: tel: fax: [facility] Rehabilitation Therapy - [address] [address] Phone: tel: fax: Referral ID Status Reason Start Date Expiration Date Visits Requested Visits Authorized [id number] New Request Specialty Services Required 03/14/2024 1 1 Question Answer Reason for Request: s/p left DR ORIF DOS 03/02/24- post op on 03/19 with nurse for staple removal please schedule to follow this appointment Comments Left Distal Radius ORIF, Evaluation and Treatment, ROM, Forearm based , Remove splint for ROM and hygiene only. Begin OT at first post-op appointment. Frequency 2- 3x/week for 4-6 weeks. 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 Not on [...] Aj Hall RN documented in this encounter Plan of Treatment Upcoming Encounters Date Type Department Care Team (Late st Contact Info) Description 01/04/2025 13:00 EST Office Visit [facility] Ophthalmology - [address] [phone] Gagandeep Rome MD 111 [facility], Level 5 [place] [phone] 02/11/2025 13:30 EDT Telemedicine [facility] Cancer Center Hematology & Oncology - [address] [phone] Dana Padilla MD 111 [facility], Level 2 [place] [phone] Scheduled Referrals Name Type Priority Associated Diagnoses Orde r Schedule AMB CONS/FOLLOW UP HAND THERAPY Outpatient Referral STAT Closed fracture of left wrist with routine healing, subsequent encounter Expected: 03/14/2024 (Approximate), Expires: 03/14/2025 documented as of this encounter Visit Diagnoses Diagnosis Closed fracture of left wrist with routine healing, subsequent encounter- Primary documented in this encounter Care Teams Fishing Manager Relationship Specialty Start Date End Date None, Provider PCP - General 02/24/24 03/18/24 Gabriel Gandara PA PCP - General 03/19/24 09/11/24 Mirna Guerrero PA [address] [place] [address] PCP - General 09/12/24 Izabella Snowden, EAR MOLD LABORATORY TECHNICIAN 1 [facility], 3rd [place] [address] Swatch Maker 02/21/23 05/03/24 documented as of this encounter
--- OUTSIDE RECORDS SUMMARY | 2024-11-22 16:50 | XMS_ITS | Encounter Summary ---
Author Organization [facility] Address [address] [place] [address] Care Team Providers Care Bilingual Legal Assistant Name Role Phone Izabella Snowden INTERNATIONAL TRADE ANALYST Unavailable [phone] Gabriel Gandara Primary Care Provider [phone] Reason for Visit * Reason Comments Suture / Staple Removal Encounter Details Date Type Department Care Team (Late st Contact Info) Description 03/19/2024 14:00 EDT Nurse Only [facility] Hand & Upper Extremity Program [place] [address] Nurse1, [facility] Joe Upper Extremity Removal of staple (Primary Dx); Closed fracture of left wrist with routine healing, subsequent encounter Social History Tobacco Use Types Packs/Day [...] 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 Open reduction internal fixation distal radius fracture,intra-articular with greater than or equal to 3 fragments 2. Carpal tunnel release on 03/02/24 The wound is well healed without signs of infection. The cortez were removed and steri strips applied. Wound care and activity instructions given. Pt had x-rays completed and a visit with OT for splint. Follow up plan per Dr Saravanan Owusu was supervised by Dr Sexton who was present and immediately available in the office suite. JORDAN GUZMAN RN 03/19/2024 15:11 documented in this encounter Plan of Treatment Upcoming Encounters Date Type Department Care Team (Late st Contact Info) Description 01/04/2025 13:00 EST Office Visit [facility] Ophthalmology [address] [phone] Gagandeep Rome MD [address] [place] [address], Level 5 [place] [phone] 02/11/2025 13:30 EDT Telemedicine [facility] Hematology & Oncology [address] [address] Dana Padilla MD [address] [facility], Level 2 [place] [phone] documented as of this encounter Visit Diagnoses Diagnosis Removal of staple- Primary Encounter for removal of sutures Closed fracture of left wrist with routine healing, subsequent encounter documented in this encounter Care Teams Bilingual Legal Assistant Relationship Specialty Start Date End Date Gabriel Gandara PA 1 [facility], 3rd [place] [phone] PCP - General 03/19/24 09/11/24 Izabella Snowden, DARNELL 1 [facility], 3rd [place] [address] Autocad Draftsman 02/21/23 05/03/24 documented as of this encounter
--- OUTSIDE RECORDS SUMMARY | 2024-11-22 16:50 | XMS_ITS | Encounter Summary ---
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 [...] of Assessment Author No 09/08/2023 17:08 EDT Eiler, Aj ua, RN documented as of this encounter Mental [...] Visit [facility] Ophthalmology - [address] [phone] Gagandeep Rome MD [address] [place] [address] 5 [place] [phone] 02/11/2025 13:30 EDT Telemedicine [facility] Hematology & Oncology [address] [phone] Dana Padilla MD [address] [place] [address], [facility] 2 [place] [phone] documented as of this encounter Visit Diagnoses Not on filedocumented in this encounter Care Teams Craps Dealer Relationship Specialty Start Date End Date None, Provider PCP - General 02/24/24 03/18/24 Izabella Snowden LICSW 1 [facility], 3rd [place] [phone] Carton Liner 02/21/23 05/03/24 documented as of this encounter
--- OUTSIDE RECORDS SUMMARY | 2024-11-22 16:50 | XMS_ITS | Encounter Summary ---
Author Organization [facility] Address [address] [place] [address] Care Team Providers Care Systems Lead Name Role Phone Izabella Snowden SOLVENT STATION ATTENDANT Unavailable [phone] None, Provider Primary Care Provider Unavailabl e Reason for Referral * Radiology Services (Routine/Next Available) - Authorization Not Required Specialty Diagnoses / Procedures Referred By Contac t Referred To Contact Diagnoses Closed fracture of left wrist with routine healing, subsequent encounter Procedures XR WRIST LEFT 3 OR MORE VIEWS Riky Butts MD [address] [place] [phone] Phone: tel: fax: [facility] Referral ID Status Reason Start Date Expiration Date Visits Requested Visits Authorized [id number] Authorization Not Required 03/13/2024 1 1 Encounter Details Date Type Department Care Team (Late st Contact Info) Description 03/09/2024 Orders Only [facility] Hand & Upper Extremity Program - Joe [facility] [place] [address] Riky Butts MD [address] [place] [phone] Closed fracture of left wrist with routine [...] 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 Not [...] Info) Description 01/04/2025 13:00 EST Office Visit [facility] Ophthalmology [address] 359[address] Gagandeep Rome MD [address] [place] [address] 5 [place] [address] 02/11/2025 13:30 EDT Telemedicine [facility] Hematology & Oncology [address] 768411 Dana Padilla MD [address] [place] [address] 2 [place] [address] documented as of this encounter Results * XR WRIST LEFT 3 OR MORE VIEWS (03/19/2024 14:32 EDT) Anatomical Region Laterality Modality Upper Extremities Left Computed Radio graphy 03/21/2024 13:0 1 EDT Impressions 03/21/2024 13:01 EDT FINDINGS / IMPRESSION: PA, oblique, and lateral views of the left wrist show progressive healing of the distal radial fracture status post ORIF with a volar plate and screws in overall satisfactory alignment. There is incomplete healing of an ulnar styloid process fracture appears in satisfactory alignment as well. There are stable degenerative changes in the wrist. There is osteopenia. No new fracture seen. There is residual soft tissue swelling about the wrist. [id number] Narrative 03/21/2024 13:01 EDT EXAM/TECHNIQUE: XR WRIST LEFT 3 OR MORE VIEWS ??03/19/2024 2:20 PM HISTORY: Left Wrist Distal Radius Fracture Assessment;S62.102D:Closed fracture of left wrist with routine healing, subsequent encounter COMPARISON: Left wrist radiographs dated February 29, 2024 on February 13, 2024. Resulting Agency Comment [id number] Procedure Note Nahun Castellano MD - 03/21/2024 EXAM/TECHNIQUE: XR WRIST LEFT 3 OR MORE VIEWS 03/19/2024 2:20 PM HISTORY: Left Wrist Distal Radius Fracture Assessment;S62.102D:Closedfracture of left wrist with routine healing, subsequent encounter COMPARISON: Left wrist radiographs dated February 29, 2024 on January. IMPRESSION FINDINGS / IMPRESSION: PA, oblique, and lateral views of the left wrist show progressive healingof the distal radial fracture status post ORIF with a volar plate andscrews in overall satisfactory alignment. There is incomplete healing ofan ulnar styloid process fracture appears in satisfactory alignment aswell. There are stable degenerative changes in the wrist. There isosteopenia. No new fracture seen. There is residual soft tissue swellingabout the wrist. [id number] us Riky Butts MD IMG DIAGNOSTIC IMAGING ORDERAB LES Final Result documented in this encounter Visit Diagnoses Diagnosis Closed fracture of left wrist with routine healing, subsequent encounter- Primary Closed fracture of left wrist with routine healing, subsequent encounter documented in this encounter Care Teams Systems Lead Relationship Specialty Start Date End Date None, Provider PCP - General 02/24/24 03/18/24 Izabella Snowden LICSW 1 [facility], 3rd [place] [address] Skate Boarder 02/21/23 05/03/24 documented as of this encounter
--- OUTSIDE RECORDS SUMMARY | 2024-11-22 16:50 | XMS_ITS | Encounter Summary ---
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 Not on file Not [...] Info) Description 01/04/2025 13:00 EST Office Visit [facility] Ophthalmology - [address] [phone] Gagandeep Rome MD [address] [place] [address] 5 [place] [phone] 02/11/2025 13:30 EDT Telemedicine [facility] Hematology & Oncology [address] [phone] Dana Padilla MD [address] [place] [address], [facility] 2 [place] [phone] documented as of this encounter Visit Diagnoses Not on filedocumented in this encounter Care Teams Barrel Bridge Assembler Relationship Specialty Start Date End Date None, Provider PCP - General 02/24/24 03/18/24 Izabella Snowden LICSW 1 [facility], 3rd [place] [address] Customer Sales Distributor 02/21/23 05/03/24 documented as of this encounter
--- OUTSIDE RECORDS SUMMARY | 2024-11-22 16:50 | XMS_ITS | Encounter Summary ---
Author Organization [facility] Address [address] [place] [address] Care Team Providers Care French Translator Name Role Phone Izabella Snowden CAFE COOK Unavailable [phone] None, Provider Primary Care Provider Gabriel Wei Primary Care Provider [phone] Mirna Guerrero Primary Care Provider + Reason for Visit * Reason Onset Date Comments Appointment Related 03/05/2024 Referral med icaid transportation over 100 miles Encounter Details Date Type Department Care Team (Late st Contact Info) Description 03/05/2024 Telephone [facility] Hand & Upper Extremity Program - [address] [place] [address] Riky Butts MD [address] [place] [phone] Appointment Related (Referral medicaid transportation over 100 miles ) Social History Tobacco Use Types Packs/Day [...] you? Never 02/24/2023 How often does anyone, inclu yusra family, insult, scream, curse or threaten to hurt you? 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 * Telephone Encounter - Sandra Zavala - 03/05/2024 1543 EDT Reason for Call: Appointment Related (Referral medicaid transportation over 100 miles ) Summary: Soni called needs a transportation referral/form filled out and sent DVHA please sendback to form [phone] Pt has appointment on 03/15/24. Soni sent fax to main fax # Appointment Offered? No Sandra Zavala 03/05/2024 15:43 documented in this encounter Plan of Treatment Upcoming Encounters Date Type Department Care Team (Late st Contact Info) Description 01/04/2025 13:00 EST Office Visit [facility] Ophthalmology - [address] [address] Gagandeep Rome MD 111 [facility], Level 5 [place] [phone] 02/11/2025 13:30 EDT Telemedicine [facility] Cancer Center Hematology & Oncology - [address] [phone] Dana Padilla MD 111 [facility], Level [address] [place] [phone] documented as of this encounter Visit Diagnoses Not on filedocumented in this encounter Care Teams French Translator Relationship Specialty Start Date End Date None, Provider PCP - General 02/24/24 03/18/24 Gabriel Gandara PA PCP - General 03/19/24 09/11/24 Mirna Guerrero PA [address] [place] [address] PCP - General 09/12/24 Izabella Snowden LICSW 1 [facility], 3rd [place] [phone] Utility Worker Driver 02/21/23 05/03/24 documented as of this encounter
--- OUTSIDE RECORDS SUMMARY | 2024-11-22 16:50 | XMS_ITS | Encounter Summary ---
Author Organization [facility] Address [address] [place] [address] Care Team Providers Care Field Artillery Basic Name Role Phone Izabella Snowden [facility] Unavailable [phone] Gabriel Gandara Primary Care Provider [phone] Reason for Referral * Radiology Services (Routine/Next Available) - Authorization Not Required Specialty Diagnoses / Procedures Referred By Contac t Referred To Contact Diagnoses Closed fracture of left wrist with routine healing, subsequent encounter Procedures XR WRIST LEFT 3 OR MORE VIEWS Riky Butts MD [address] [place] [phone] Phone: tel: fax: [facility] Referral ID Status Reason Start Date Expiration Date Visits Requested Visits Authorized [id number] Authorization Not Required 03/13/2024 1 1 Reason for Visit * Radiology Services (Routine/Next Available) - Authorization Not Required Specialty Diagnoses / Procedures Referred By Contac t Referred To Contact Diagnoses Closed fracture of left wrist with routine healing, subsequent encounter Procedures XR WRIST LEFT 3 OR MORE VIEWS Riky Butts MD [address] [place] [phone] Phone: tel: fax: [facility] Referral ID Status Reason Start Date Expiration Date Visits Requested Visits Authorized [id number] Authorization Not Required 03/13/2024 1 1 Encounter Details Date Type Department Care Team (Latest Contact Info) Description 03/19/2024 14:00 EDT - 03/19/2024 23:59 EDT Hospital Encounter [facility] [address] [place] [address] Closed fracture of left wrist with routine healing, subsequent encounter Discharge Disposition: Home or Self Care Social [...] Record ed How often does anyone, inclu ding family, hit, punch or physically hurt you? 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 54 mL 3 10/19/2023 4 fluticasone propionate (FLOVENT DISKUS) 100 mcg/actuation blister with device 4 hydrOXYzine (ATARAX) 25 mg tablet TAKE 1-2 [...] 13:00 EST Office Visit [facility] Ophthalmology - [address] [id number] Gagandeep Rome MD [address] [place] [address] [address] [place] [phone] 02/11/2025 13:30 EDT Telemedicine [facility] Hematology & Oncology [address] [id number] Dana Padilla MD [address] [place] [address], [facility] [address] [place] [phone] documented as of this encounter Procedures Procedure Name Priority Date/Time Associated Diagnosis Comments XR WRIST LEFT 3 OR MORE VIEWS Routine 03/19/2024 14:32 EDT Closed fracture of left wrist with routine healing, subsequent encounter documented in this encounter Results * XR WRIST LEFT [...] residual soft tissue swelling about the wrist. [id number] Narrative 03/21/2024 13:01 EDT EXAM/TECHNIQUE: XR WRIST LEFT 3 OR MORE VIEWS ??03/19/2024 2:20 PM HISTORY: Left Wrist Distal Radius Fracture Assessment;S62.102D:Closed fracture of left wrist with routine healing, subsequent encounter COMPARISON: Left wrist radiographs dated February 29, 2024 on February 13, 2024. Resulting Agency Comment [id number] Procedure Note Nahun Castellano MD - 03/21/2024 [...] is residual soft tissue swellingabout the wrist. [id number] Riky Butts MD [facility]NOST[facility] IMAG[facility] ORDERAB LES Final Result documented in this encounter Visit Diagnoses Diagnosis Closed fracture of left wrist with routine healing, subsequent encounter documented in this encounter Care Teams Field Artillery Basic Relationship Specialty Start Date End Date Gabriel Gandara PA [address] [facility], [address] [place] [phone] PCP - General 03/19/24 09/11/24 Izabella Snowden, DARNELL [address] [facility], [address] [place] [phone] Allergist/Immunologist Physician 02/21/23 05/03/24 documented as of this encounter
--- OUTSIDE RECORDS SUMMARY | 2024-11-22 16:50 | XMS_ITS | Encounter Summary ---
Author Organization [facility] Address [address] [place] [address] Care Team Providers Care Bobbin Marker Name Role Phone Izabella Snowden PHILOSOPHY LECTURER Unavailable [phone] None, Provider Primary Care Provider Unavailabl e Reason for Visit * Auth/Cert (Routine) Specialty Diagnoses / Procedures Referred By [facility] Referred To Contact Diagnoses Closed fracture of left wrist, initial encounter Closed fracture of left wrist, initial encounter [S62.102A] Procedures IN OPTX DSTL RADL I-ARTIC FX/EPIPHYSL SEP 3 FRAG Open Reduction Internal Fixation Left Distal Radius Referral ID Status Reason Start Date Expiration Date Visits Re quested Visits Authorized [id number] 1 1 Encounter Details Date Type Department Care Team (Latest Contact Info) Description 03/02/2024 11:23 EDT - 03/02/2024 23:59 EDT Hospital Encounter [facility] Operating Room [address] [place] [address] Riky Butts MD [address] [place] [phone] Closed fracture of left wrist with routine healing, subsequent encounter Discharge Disposition: Home or Self Care Social History Tobacco Use Types Packs/Day Years Used Date Smoking Tobacco: Former Cigarettes 0.3 35 S tarted: 12/22/2023 Smokeless Tobacco: Never Tobacco Cessation:Counseling Given: Not Answered Alcohol Use Standard Drinks/Week [...] 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 on file Not on file Not o n file documented as of this encounter Last Filed Vital Signs Vital Sign Reading Time Taken Comments Blood Pressure 128/84 03/02/2024 1745 EDT Pulse - - Temperature 36.8 ??C (98.3 ??F) 03/02/2024 1745 EDT Respiratory Rate 13 03/02/2024 1745 EDT Oxygen Saturation 91% 03/02/2024 1745 EDT Inhaled Oxygen Concentration - - Weight 109 kg (240 lb 3.2 oz) 03/02/2024 1150 ED T Height 162.6 cm (5' 4) 03/02/2024 1150 EDT Body Mass Index 41.23 03/02/2024 1150 EDT documented in this encounter Functional Status [...] Aj Hall RN documented in this encounter Discharge Instructions * Discharge Instructions* Yazan Burt MD - 03/02/2024 14:50 EDT Orthopedics and Rehabilitation [address] [place] [id number] HAND/ELBOW POST OPERATIVE INSTRUCTIONS You have just undergone surgery. The following general instructions will help the post-operative period go as smoothly as possible: A large dressing has been placed on your arm to reduce motion and control swelling. Keep your dressing clean and dry. Do not remove it unless instructed. Wear a plastic bag over the dressing whenever you take a shower or bath. If you were given a sling, remove it tonight to elevate your arm. Elevate your arm above your heart as much as possible. This is especially important for the first 72 hours. Bend and straighten the fingers, elbow and shoulder at least 6 times each day (if not covered by bandage). Early motion of these areas will make your overall recovery faster. Resume your normal diet. You may be prescribed medication or may be instructed to take over the counter medication such as Ibuprofen and Tylenol. Take with food when possible. If you were given a nerve block or local anesthetic, your arm and/or hand may feel numb or heavy. This is normal and can last from 6-12 hours or more after surgery. Please notify us for any of the following problems: Pain unrelieved by rest, elevation and pain medications. Feeling that the bandage is too tight. Active bleeding through the bandage. Drainage or foul odor from wound or pin sites. Temperature greater than 101F or chills. Blue fingertips. Numbness of the fingertips which doesn't improve or which is worsening. Unless directed otherwise, you will need to be seen in 10-14 days to remove the dressing, check theincision and possibly begin motion. Your stitches will be removed at this appointment. Bandage Instructions: ___Leave bandage on. Keep clean and dry until follow up visit. Contact Information: Postoperative Questions or Concerns: [phone] Nurse: [phone] Additional instructions: documented in this encounter Medications at Time [...] documented in this encounter H&P Notes * Riky Butts MD - 03/02/2024 1207 EDT The preoperative history and physical has been reviewed and the clinically appropriate elements of the physical examination have been repeated. There are no changes to the documented history and physical or if so such changes are documented below. documented in this encounter OR Notes * OR Surgeon - Riky Butts MD - 03/02/2024 1445 EDT PREOPERATIVE DIAGNOSIS: Left distal radius fracture. POSTOPERATIVE DIAGNOSIS: Same TECHNICAL NAME OF OPERATION: 1. Open reduction internal fixation distal radius fracture, intra-articular with greater than or equal to 3 fragments 2. Carpal tunnel release ANESTHESIA: General NAME OF SURGEON(S)/ASSISTANTS: Riky Butts MD ; Yazan burt MD SPECIMENS: None COMPLICATIONS: None IMPLANTS USED: Synthes 2.4 mm volar, variable angle distal radius plate. INDICATION FOR PROCEDURE: The patient sustained a fracture of the distal radius. The risks, benefits and alternatives of treatment including operative versus nonoperative management were thoroughly discussed in detail with the patient. The patient wished to proceed surgically and informed consent was obtained. PROCEDURE: The patient was identified and the operative site verified and marked in the holding area. This was repeated in the operating room according to protocol and a time-out was performed prior to incision. The patient was brought to the operating room. All bony prominences were padded. IV antibiotics, and general anesthesia were administered by the anesthesiologist. A tourniquet was placed on the affected upper extremity and the upper extremity was prepped and draped in the usual sterile fashion. The limb was exsanguinated and the tourniquet inflated to 250 mmHG. A volar incision was made overlying the FCR tendon in the distal radial forearm and zigzag across the wrist crease. The incision was through skin only. Careful blunt dissection was then used through the subcutaneous tissues to identify the FCR sheath, which was incised along its volar radial aspect. The FCR was mobilized and the dorsal aspect of the sheath was incised. The FPL was bluntly dissected in an ulnar direction. Given the nature of the injury a carpal tunnel release was performed through a hybrid FCR approach. With the FCR retracted radially the FPL and the carpal tunnel contents including the median nerve carefully retracted ulnarly and protected the superficial and deep radial ana flets of the transverse carpal ligament were released under direct visualization. Complete release verified by palpation. The pronator quadratus was elevated in a radial to ulnar direction off the distal radial metaphysis. The brachioradialis was released from the radial styloid with care taken to protect the first dorsal compartment tendons. The fracture was reduced, the plate applied and held provisionally with K-wires. Anatomic fracture reduction and appropriate plate placement was verified visually as well as bymultiplanar fluoroscopy. The plate was secured with a 2.4 mm cortical screw in the oblong screw hole. The distal locking screws were then placed. These were drilled and placed in unicortical fashion to, but not through the dorsal cortex. The remaining screws were placed proximally. Excellent purchase was obtained. The targeting guide and K-wires were removed. Appropriate plate placement, screw placement and length, and fracture reduction was verified visually as well as on multiplanar fluoroscopy. The wrist was taken through a range of motion and verified to be full in flexion extension, supin ation and pronation. The distal radial ulnar joint was assessed and verified to be stable in all positions of forearm rotation. The wound was thoroughly and copiously irrigated. Bleeding points were cauterized. Wound was again irrigated and closed with cortez. 1% lidocaine with 1-100,000 epinephrine was used as local anesthetic. A sterile surgical dressing and plaster splint were applied. The tourniquet was deflated. All digits were pink and well perfused at the conclusion of the procedure. There was no excessive swelling. Compartments were soft. The patient was extubated and transported to Recovery stable and tolerated the procedure well. There were no intraoperative complications. * Preprocedure Instructions - Ne Cooper RN - 03/01/2024 0955 EDT The following preoperative instructions have been provided via phone. Date of procedure: 03/02/2024 Arrival time: 1130 (this time is subject to change, we would call you the day before if a change occurs) Tara Yun has been instructed as follows regarding medication administration for the day of the scheduled procedure. Instructions for Taking Medications Day of Surgery Medication Dose and frequency Last Dose Hold Day of Surgery Take Day of Surgery albuterol 90 mcg/actuation inhaler Inhale 1-2 Puffs as directed every 4 hours as needed for Wheezing. x diclofenac sodium gel Apply 2 g topically 2 times daily as needed for Pain (Knee pain). x enoxaparin (LOVENOX) 60 mg/0.6 mL injection Inject 60 mg into the skin daily. Follow your PCP instructions fluticasone propionate (FLOVENT DISKUS) 100 mcg/actuation blister with device x furosemide (LASIX) 20 mg tablet TAKE 3 TABLETS EVERY DAY. IF FLUID IN LEGS IS WELL CONTROLLED THEN CUT DOWN TO 2 EVERY DAY. Patient taking differently: Take 2 Tablets by mouth daily. TAKE 3 TABLETS EVERY DAY. IF FLUID IN LEGS IS WELL CONTROLLED THEN CUT DOWN TO 2 EVERY DAY. x gabapentin (NEURONTIN) 300 mg capsule Take two capsules in the AM, one capsule in the afternoon andtwo capsules in the evening x hydrOXYzine (ATARAX) 25 mg tablet TAKE 1-2 TABLETS BY MOUTH 3 TIMES DAILY NEEDED FOR ANXIETY. X as needed INCRUSE ELLIPTA 62.5 mcg/actuation INHALE 1 PUFF BY MOUTH DIRECTED DAILY x lactulose (CHRONULAC) 10 gram/15 mL solution TAKE 15-30ML BY MOUTH DAILY NEEDED (CONSTIPATION. TARGET GOAL OF TWO BOWEL MOVEMENTS DAILY). x levothyroxine (SYNTHROID) 25 mcg tablet TAKE 1 TABLET BY MOUTH EVERY DAY x lidocaine 5 % (LIDODERM) 5 % patch Place 1 Patch onto the skin daily. Remove after 12 hours x naloxone (NARCAN) 4 mg/actuation nasal spray 0.1 mL by nasal route as needed for Opioid Reversal. Repeat every 2-3 minutes if not effective and overdose is suspected. (spray is harmless in excess). ondansetron (ZOFRAN) 4 mg tablet TAKE 1 TABLET BY MOUTH EVERY 8 HOURS NEEDED FOR NAUSEA X if needed oxyCODONE (ROXICODONE) 5 mg immediate release tablet Take 2 Tablets by mouth every 6 hours as needed for Pain. Daily Max: 40 mg X if needed OXYGEN-AIR DELIVERY SYSTEMS MISC 2 L by misc (non-drug; combo route) route at bedtime. spironolactone (ALDACTONE) 100 mg tablet Take 0.5 Tablets by mouth daily. x sucralfate (CARAFATE) 1 gram tablet Take 1 Tablet by mouth 4 times daily. x traZODone (DESYREL) 100 mg tablet Take 1 Tablet by mouth at bedtime. N/A venlafaxine (EFFEXOR-XR) 150 mg XR capsule TAKE 1 CAPSULE BY MOUTH DAILY. (TOTAL DAILY DOSE OF THISMEDICATION IS 150 MG). x Instructions for Tara Camacho Yun's Procedure at [facility] . These instructions are being given for your safety and to prevent your surgery from being delayed or canceled. IF YOU FEEL SICK within 7 days of your procedure CALL YOUR SURGEON. If you have MyChart, you will receive 2 questionnaires (???Pre-surgery Questionnaire?? and ???History?? ) prior to your procedure. Please fill these out so we can safely care for you during your procedure. Getting ready at home 24 hours before your procedure: Stop any smoking, vaping or chewing products. Before your procedure: Stop eating and drinking by midnight. This includes chewing gum, mints, candy and Tums. EXCEPT: You CAN have a small sip of water (only water) with the medications your doctor or nurse asked you to take before arriving at the hospital. You CAN have water or a clear electrolyte drink 4 hours before you arrive (Pedialyte, Gatorade, Powerade, etc.) Avoid red colored drinks Grooming Please take a bath or shower to clean your skin. Do not put on any lotions, makeup, deodorants, oils, powders, perfumes or colognes. Do not shave the procedure area. Remove all nail polishes from fingers and toes. What to bring to the hospital and what to keep at home: Plan to wear clean and comfortable clothing. If you wear contacts, plan to wear glasses instead. Please leave at home: Any body piercings or jewelry, including your wedding band. Your home medications. Extra luggage or a large bag. We will provide you with a bag for any items. Valuables, campoverde or credit cards. [facility] is not responsible for any lost items during your hospital visit. If you experience fevers, swelling, redness, rash or a break in your skin prior to your surgery contact your surgeon. Arriving for your procedure: Enter through the main entrance, and check in at the patient registration information desk. They will take your name and let us know you have arrived. A patient automobile accessories salesperson will then verify your information and give you an identification bracelet. You will then be directed to the Metaphysician waiting area around the corner to check in at the window. You will be asked to provide the name and number of the responsible adult driving you home; this isrequired to receive sedation for a procedure. We recommend you are in the care of another adult for 24 hours after anesthesia. You should not drive or make any important personal decisions for 24 hours. You are at a high risk for a fall and nausea/vomiting after anesthesia. We recommend you rest at home with mild activity for the remainder of the day. Day of procedure at hospital: The nursing team will take your vital signs, check your information, and discuss what to expect. They may also prepare your procedural area (clip hair/clean skin), start an IV and give you medications as needed. Your anesthesia team will meet with you to discuss your anesthesia plan and any questions you may have prior to the procedure. Your doctor will see you before going into your procedure. They will verify the correct procedure and answer any questions you may have. Once you are ready, an operating room or procedural nurse will ask you many of the same questions for safety reasons. They will then take you to the procedural room. If you have additional questions before your procedure, please call . documented in this encounter Miscellaneous Notes * Flowsheet Note - Anila Gill RN - 03/02/2024 1605 EDT Patient reporting pain 9/10 and falls asleep during assessment * Brief Op Note - Yazan Burt MD - 03/02/2024 1445 EDT Department of Orthopaedics Brief Op Note Date of Surgery: 03/02/2024 Surgeon: Riky Butts MD Assistants: Yazan Burt MD Pre-Op Diagnosis: Left distal radius fracture and left Carpal tunnel syndrome Post-Op Diagnosis: same Procedure(s): Left Open Carpal Tunnel Release Findings: Fracture as seen on fluroscopy, transverse carpal ligament completely decompressed Anesthesia Type: General Tourniquet Time: 43 minutes Estimated Blood Loss: Minimal Fluids: 800mL crystalloid Urine Output: NR X-rays reviewed: yes Closure: Prolene Implants: As below Disposition and Condition: PACU in Good condition per anesthesia. Plan: Pain control per primary care physician Periop ancef Dispo Home from PACU Volar resting slab Future Appointments Date Time Provider Department Center 03/15/2024 13:30 Riky Butts MD [facility] None 04/10/2024 16:20 Loraine Hu PA-C EP2 Hem/Onc [facility] 06/05/2024 15:00 Lon Ortez MD EP5 Uro None 08/13/2024 13:20 Micheal Moseley MD PhD [facility] GI [facility] None Yazan Burt MD 03/02/2024 14:46 documented in this encounter Plan of Treatment Upcoming Encounters Date Type Department Care Team (Late st Contact Info) Description 01/04/2025 13:00 EST Office Visit [facility] Ophthalmology - Main [address] [address] Gagandeep Rome MD [address] [facility], [address] [place] [address] 02/11/2025 13:30 EDT Telemedicine [facility] Hematology & Oncology - [facility] [address], [place] [id number] Dana Padilla MD [address] [facility], [address] [place] [address] documented as of this encounter Procedures Procedure Name Priority Date/Time Associated Diagnosis Comments ECG REPORT - SCANNED 03/05/2024 15:12 EDT OPEN TREATMENT, FRACTURE, RADIUS, DISTAL, INTRA-ARTICULAR, WITH INTERNAL FIXATION OF 3 OR MORE FRAGMENTS 03/02/2024 13:30 EDT Closed fracture of left wrist, initial encounter Special Needs Fluoroscopy, Synthes Distal Radius SetAnesthesia: Axillary/Regional documented in this encounter Results * ECG REPORT - SCANNED (03/05/2024 15:12 EDT) 03/05/2024 15:1 2 EDT us Scan 2 Lab Intern PROCEDURE/MINOR SURGICAL OR DERABLES Final Result documented in this encounter Visit Diagnoses Diagnosis Closed fracture of left distal radius- Primary Other closed fractures of distal end of radius (alone) Closed fracture of left wrist with routine healing, subsequent encounter documented in this encounter Administered Medications Inactive Administered Medications - up to 3 most recent administrations Medication Order MAR Action Action Date Dose Rate Site fentaNYL citrate (PF) injection 25-50 mcg 25-50 mcg, intravenous, EVERY 5 MIN PRN, Starting on Tue03/02/24 at 1515, Until 03/03/24 at 0606, Pain, Routine, Recovery (only) HYDROmorphone (PF) (DILAUDID) 0.5 mg/0.5 mL syringe 0.3-0.5 mg 0.3-0.5 mg, intravenous, EVERY 10 MINUTES PRN, Starting on Tue03/02/24 at 1515, Until 03/03/24 at 0606, Pain, Routine, Recovery (only) HYDROmorphone (PF) (DILAUDID) 0.5 mg/0.5 mL syringe 0.5 mg 0.5 mg, intravenous, EVERY 5 MIN PRN, Starting on Tue03/02/24 at 1449, Until 03/03/24 at 0606, Pain, Moderate-Severe Pain (Scale 4-10), Routine, Recovery (only) Given 03/02/2024 15:17 EDT 0.5 mg Given 03/02/2024 15:05 EDT 0.5 mg Given 03/02/2024 14:57 EDT 0.5 mg lactated ringers (LR) infusion at 25 mL/hr, intravenous, CONTINUOUS, Starting on Tue03/02/24 at 1200, Until 03/03/24 at 0606, Routine, PreprocedureIndications:Clos ed fracture of left wrist with routine healing, subsequent encounter Continued by Anesthesia 03/02/2024 13:35 EDT 2 5 mL/hr New Bag 03/02/2024 12:20 EDT 25 mL/hr IV lactated ringers (LR) infusion at 100 mL/hr, 1,000 mL, intravenous, PACU CONTINUOUS, Starting on Tue03/02/24 at 1515, Until 03/03/24 at 0056, Routine, Recovery (only) Rate Change 03/02/2024 14:57 EDT 100 mL/h r oxyCODONE (ROXICODONE) immediate release tablet 5-10 mg 5-10 mg, oral, EVERY 30 MINUTES PRN, 2 doses, Starting on Tue03/02/24 at 1449, Until 03/03/24 at 0606, Pain, Routine, Recovery (only) Given 03/02/2024 15:12 EDT 10 mg oxyCODONE (ROXICODONE) immediate release tablet 5-10 mg 5-10 mg, oral, EVERY 30 MINUTES PRN, 2 doses, Starting on Tue03/02/24 at 1733, Until 03/03/24 at 0606, Pain, Routine, Recovery (only) Given 03/02/2024 18:08 EDT 5 mg documented in this encounter Active and Recently Administered Medications Times are shown in EDT. Scheduled Medication Order 02/29/2024 03/01/2024 03/02/2024 ceFAZolin in dextrose 5 % (ANCEF) IVPB DUPLEX 2 g (COMPLETED) 2 g, intravenous, Administer over 30 Minutes, PRE-OP ONCE, 1 dose, On Tue03/02/24 at 1200, Type of Therapy: Prophylaxis, Suspected Indication (Select all that apply): Surgical prophylaxis, Routine, Preprocedure 1220 (Hold - Provide r: Soni Chu RN - Reason: Other - Comment: Hang/hold for the OR)1349 (Given - Provider: Anthony Velazquez MD) Continuous Medication Order 02/29/2024 03/01/2024 03/02/2024 lactated ringers (LR) infusion at 25 mL/hr, intravenous, CONTINUOUS, Starting on Tue03/02/24 at 1200, Until 03/03/24 at 0606, Routine, Preprocedure 1220 (New Bag - Prov ider: Soni Chu RN)1335 (Continued by Anesthesia - Provider: Anthony Velazquez MD)1449 (Completed - Provider: Anthony Velazquez MD) lactated ringers (LR) infusion at 100 mL/hr, 1,000 mL, intravenous, PACU CONTINUOUS, Starting on Tue03/02/24 at 1515, Until 03/03/24 at 0056, Routine, Recovery (only) 1457 (Rate Change - Provider: Anila Gill RN - Comment: 200ml in bag) PRN Medication Order 02/29/2024 03/01/2024 03/02/2024 fentaNYL citrate (PF) injection 25-50 mcg 25-50 mcg, intravenous, EVERY 5 MIN PRN, Starting on Tue03/02/24 at 1515, Until 03/03/24 at 0606, Pain, Routine, Recovery (only) HYDROmorphone (PF) (DILAUDID) 0.5 mg/0.5 mL syringe 0.3-0.5 mg 0.3-0.5 mg, intravenous, EVERY 10 MINUTES PRN, Starting on Tue03/02/24 at 1515, Until 03/03/24 at 0606, Pain, Routine, Recovery (only) HYDROmorphone (PF) (DILAUDID) 0.5 mg/0.5 mL syringe 0.5 mg 0.5 mg, intravenous, EVERY 5 MIN PRN, Starting on Tue03/02/24 at 1449, Until 03/03/24 at 0606, Pain, Moderate-Severe Pain (Scale 4-10), Routine, Recovery (only) 1457 (Given - Provid er: Anila Gill RN)1505 (Given - Provider: Anila Glil RN)1517 (Given - Provider: Anila Gill RN) lidocaine-EPINEPHrine 1 %-1:100,000 injection (CANCELED) PRN, Starting on Tue03/02/24 at 1440, Until Tue03/02/24 at 1448, Routine, Intraprocedure 1440 (Given - Provid er: Riky Butts MD) oxyCODONE (ROXICODONE) immediate release tablet 5-10 mg 5-10 mg, oral, EVERY 30 MINUTES PRN, 2 doses, Starting on Tue03/02/24 at 1449, Until 03/03/24 at 0606, Pain, Routine, Recovery (only) 1512 (Given - Provid er: Anila Gill RN) oxyCODONE (ROXICODONE) immediate release tablet 5-10 mg 5-10 mg, oral, EVERY 30 MINUTES PRN, 2 doses, Starting on Tue03/02/24 at 1733, Until 03/03/24 at 0606, Pain, Routine, Recovery (only) 1808 (Given - Provid er: Lucie Billings RN) documented in this encounter Orders Medications Ordered That Luc ht Not Have Been Administered Count Last Ordered Date First Ordered Date ceFAZolin in dextrose 5 % (A NCEF) IVPB DUPLEX 2 g 1 03/02/2024 fentaNYL citrate (PF) injection 25-50 mcg 1 03/02/2024 HYDROmorphone (PF) (DILAUDID ) 0.5 mg/0.5 mL syringe 0.3-0.5 mg 1 03/02/2024 lidocaine (PF) 10 mg/mL (1 % ) injection 2 mg 1 03/02/2024 lidocaine-EPINEPHrine 1 %-1: 100,000 injection 1 03/02/2024 Discharge Count Last Ordered Date First Orde red Date DISCHARGE PATIENT 1 03/02/2024 documented in this encounter Care Teams Bobbin Marker Relationship Specialty Start Date End Date None, Provider PCP - General 02/24/24 03/18/24 Izabella Snowden, PHILOSOPHY LECTURER [address] [facility], [address] [place] [phone] Technical Communication Teacher 02/21/23 05/03/24 documented as of this encounter
--- OUTSIDE RECORDS SUMMARY | 2024-11-22 16:50 | XMS_ITS | Encounter Summary ---
Author Organization [facility] Address [address] [place] [address] Care Team Providers Care Disc Ruler Operator Name Role Phone Izabella Snowden SYNTHETIC STAPLE EXTRUDER Unavailable None, Provider Primary Care Provider Unavailabl e Reason for Visit * Auth/Cert (Routine) Specialty Diagnoses / Procedures Referred By [facility] Referred To Contact Diagnoses Closed fracture of left wrist, initial encounter Closed fracture of left wrist, initial encounter [S62.102A] Procedures FL OPTX DSTL RADL I-ARTIC FX/EPIPHYSL SEP 3 FRAG Open Reduction Internal Fixation Left Distal Radius Referral ID Status Reason Start Date Expiration Date Visits Re quested Visits Authorized [id number] 1 1 Encounter Details Date Type Department Care Team (Late st Contact Info) Description 03/02/2024 13:05 EDT - 03/02/2024 14:15 EDT Surgery [facility] Operating Room [address] [place] [address] Riky Butts MD [address] [place] [phone] Open Reduction Internal Fixation Left Distal Radius [00970 (CPT??)] Surgery Details Date/Time Status Location OR Service Patient Class Case Cl ass Case Type Trauma Case? 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 Not on file Not o n file documented as of this encounter Last Filed Vital Signs Vital Sign Reading Time Taken Comments Blood Pressure 123/74 03/02/2024 1150 EDT Pulse - - Temperature 36.7 ??C (98.1 ??F) 03/02/2024 1150 EDT Respiratory Rate 14 03/02/2024 1150 EDT Oxygen Saturation 95% 03/02/2024 1150 EDT Inhaled Oxygen Concentration - - Weight [...] Aj Tucker RN documented in this encounter Discharge Instructions * Discharge Instructions* Yazan Burt MD - 03/02/2024 14:50 EDT Orthopedics [facility] Rehabilitation [address] [place] [id number] HAND/ELBOW POST OPERATIVE INSTRUCTIONS You have just [...] visit. Contact Information: Postoperative Questions or Concerns: [phone] Nurse: [phone] Additional instructions: documented in this encounter Medications [...] verified to be full in flexion extension, supination and pronation. The distal radial ulnar joint [...] Instructions - Ne Cooper RN - 03/01/2024 0947 EDT The following preoperative instructions have been [...] THISMEDICATION IS 150 MG). x Instructions for Phyliss E Yun's Procedure at [facility] . These instructions are being [...] any items. Valuables, campoverde or credit cards. [facility] is not responsible for any lost items during your hospital visit. If you experience fevers, swelling, redness, rash or a break in your skin prior to your surgery contact your surgeon. Arriving for your procedure: Enter through the main entrance, and check in at the patient registration information desk. They will take your name and let us know you have arrived. A patient production control pegboard clerk will then verify your information and give you an identification bracelet. You will then be directed to the General Production Manager waiting area around the corner to check [...] 04/10/2024 16:20 Loraine Hu PA-C EP2 Hem/Onc [facility] 06/05/2024 15:00 Lon Ortez MD EP5 Uro None 08/13/2024 13:20 Micheal Moseley MD PhD MP5 GI Clin None Yazan Burt MD 03/02/2024 14:46 documented in this encounter Plan of Treatment Upcoming Encounters Date Type Department Care Team (Late st Contact Info) Description 01/04/2025 13:00 EST Office Visit [facility] Ophthalmology - [address] [phone] Gagandeep Rome MD [address] [place] [address], [address] [place] [phone] 02/11/2025 13:30 EDT Telemedicine [facility] Hematology & Oncology [address] [phone] Dana Padilla MD [address] [place] [address], [facility] [address] [place] [phone] documented as of this encounter [...] 03/05/2024 15:1 2 EDT us Scan 2 Floorworker Distributor PROCEDURE/MINOR SURGICAL OR DERABLES Final Result documented in this encounter Visit Diagnoses Diagnosis Closed fracture of left wrist with routine healing, subsequent encounter Closed fracture of left wrist, initial encounter documented in this encounter Administered Medications [...] (only) Rate Change 03/02/2024 14:57 EDT 100 mL/hr lidocaine-EPINEPHrine 1 %-1:100,000 injection PRN, Starting on Tue03/02/24 at 1440, Until Tue03/02/24 at 1448, Routine, Intraprocedure Given 03/02/2024 14:40 EDT 10 mL Left Wrist oxyCODONE (ROXICODONE) immediate release tablet 5-10 mg [...] Anila Gill RN)1505 (Given - Provider: Anila Gill RN)1517 (Given - Provider: Anila Gill RN) [...] % ) injection 2 mg 1 03/02/2024 Discharge Count Last Ordered Date First Orde red Date DISCHARGE PATIENT 1 03/02/2024 documented in this encounter Care Teams Disc Ruler Operator Relationship Specialty Start Date End Date None, Provider PCP - General 02/24/24 03/18/24 Izabella Snowden, SYNTHETIC STAPLE EXTRUDER [address] [facility], [address] [place] [address] Mold Stamper 02/21/23 05/03/24 documented as of this encounter
--- OUTSIDE RECORDS SUMMARY | 2024-11-22 16:50 | XMS_ITS | Encounter Summary ---
Author Organization [facility] Address [address] [place] [address] Care Team Providers Care Newsagent Name Role Phone Izabella Snowden ENVELOPE SEALING MACHINE OPERATOR Unavailable [phone] None, Provider Primary Care Provider Unavailabl e Reason for Visit * Reason Onset Date Comments Allergic Reaction 03/06/2024 Encounter Details Date Type Department Care Team (Late st Contact Info) Description 03/06/2024 Telephone [facility] [place] [facility] Hand & Upper Extremity Program - [address] [address] Riky Butts MD [address] [place] [phone] Allergic Reaction Social History Tobacco Use Types Packs/Day Years [...] 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 Confirmed form has been faxed + scanned into chart. ELROY VALDES MA 03/06/24 15:03 * Telephone Encounter - Kate Medellin - 03/06/2024 1403 EDT Reason for Call: Allergic Reaction Summary: dav phoned regarding other issue today but wanted to make sure Dr Butts was aware that she had called the houseperson provider on sat regarding an allergic reaction she was having , face was all puffy, blood vessels in eyes broke , trouble w/ breathing very short of breath, was told to take benedryl which helped , no encounter was made, provider asked pt how other issues were and she told him about the splint,, this seems to be all he documented. Pt was concerned about the allergic reaction and not the splint. As of today pt is doing much better, saw her PCP and all was good. Appointment Offered? No Kate Medellin 03/06/2024 14:03 documented in this encounter Plan of Treatment Upcoming Encounters Date Type Department Care Team (Late st Contact Info) Description 01/04/2025 13:00 EST Office Visit [facility] [place] [facility] Ophthalmology - [address] [phone] Gagandeep Rome MD [address] [place] [address], [address] [place] [phone] 02/11/2025 13:30 EDT Telemedicine [facility] Hematology & Oncology - [address] [phone] Dana Padilla MD [address] [place] [address], [address] [place] [phone] documented as of this encounter Visit Diagnoses Not on filedocumented in this encounter Care Teams Newsagent Relationship Specialty Start Date End Date None, Provider PCP - General 02/24/24 03/18/24 Izabella Snowden, [facility] [address] [facility], [address]rd [place] [phone] Head Custodian 02/21/23 05/03/24 documented as of this encounter
--- OUTSIDE RECORDS SUMMARY | 2024-11-22 16:50 | XMS_ITS | Encounter Summary ---
Author Organization [facility] Address [address] [place] [address] Care Team Providers Care Comic Artist Name Role Phone Izabella Snowden JAVA WEB ENGINEER Unavailable [phone] Gabriel Gandara Primary Care Provider [phone] Reason for Visit * Reason Comments Follow-up Encounter Details Date Type Department Care Team (Late st Contact Info) Description 03/19/2024 15:30 EDT Office Visit [facility] Hematology & Oncology - [address] [phone] Dana Padilla MD [address] [facility], [address] [place] [address] Secondary hypercoagulable state (HCC-CMS) (Primary [...] 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 Not on file Not on file Not o n file documented as of this encounter Last Filed Vital Signs Vital Sign Reading Time Taken Comments Blood Pressure 105/68 03/19/2024 1542 EDT Pulse 83 03/19/2024 1542 EDT Temperature 36.3 ??C (97.3 ??F) 03/19/2024 1542 EDT Respiratory Rate 16 03/19/2024 1542 EDT Oxygen Saturation 98% 03/19/2024 1542 EDT Inhaled Oxygen Concentration - - Weight 102.2 kg (225 lb 6.4 oz) 03/19/2024 1542 EDT Height 161.5 cm (5' 3.58) 03/19/2024 1542 EDT Body Mass Index 39.2 03/19/2024 1542 EDT documented in this encounter Functional Status [...] Aj Hall RN documented in this encounter Patient Instructions * Patient Instructions* Dana Padilla MD - 03/19/2024 15:30 EDT Continue lovenox twice a day - I'm asking your PCP to check CBC every 2 weeks a few times to make sure the platelet count remains above 50K and there is no bleeding. He should call me if it goes down and cc results to me. Ask him to check this Wed when you are there -Watch closely for any bleeding documented in this encounter Progress Notes * Dana Padilla MD - 03/19/2024 1530 EDT Thrombosis & Hemostasis Program (THP) Follow Up Visit Date of Service: 03/19/2024 CC: Follow-up Problem List: Patient Active Problem List Diagnosis Acute pulmonary edema (HCC-CMS) Mild interstitial edema noted on chest x-ray, July,. Plan: patient has been notified. Repeat chest x-ray to be done in September 2022. Patient aware. CHENTE Alcantar Peptic ulcer disease with hemorrhage EGD March 2021:esophagitis and pyloric channel ulcer. Oct 08, 2021: 9-day admission w/ 3 separate EGDs and several units RBC tx. Large posterior duodenalulcer and pyloric ulcer extending into duodenal bulb +mild portal gastropathy as likely sources. RxBID Protonix for 3 months then daily. -01-13-22: EGD NORMAL ([facility]) Secondary hypercoagulable state (HCC-CMS) PVT 2020 witih acquired deficiencies of anticoagulant [...] SMV thrombosis, resumed lovenox 60 mg/d for salvage determiner anticoagulation -April 2023: admitted for hematemesis due to Shahnaz-Quezada tear. Lovenox 60 mg daily continued -February 2024: provoked pulmonary embolism after wrist fracture and surgery and holding lovenox for 2+ days, Rx lovenox 80 mg BID with intent to continue that for 3 months Other cirrhosis of liver (HCC-CMS) -NAFLD related cirrhosis with history of decompensation, chronic portal htn, hepatic encephalopathy, small esophageal varices on EGD in 2018, thrombocytopenia/hypersplenism, portal gastropathy. Sees Dr. Moseley -s/p partial splenic embolization (09/28/21) -portal vein thrombosis -Hep C Past provider: Dr. 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 She had been on just low dose lovenox 60 mg/d because of prior issues with bleeding on anticoagulation and chronic thrombocytopenia. When she was in the OSH I recommended 80 mg BID lovenox (about 80% of therapeutic dose) since the pulmonary embolism was diagnosed and is doing well wihtoutbleeding. I can't access the records that were sent and in scans so am not sure if she had a deep vein thrombosis but she says she had 4 extremities scanned. Plan: - continue lovenox 80 BID. I'd like her on this for 3 months if we can. She is using sucralfate forGI prophylaxis. I'm including Dr. Moseley here so he might comment on any other intervention that might reduce the risk of bleeding - I think endoscopy might be a good idea to be sure her varices are not out of control? I don't think she can tolerate a beta warren due to low BP (the reason she fell and broke her wrist to begin with). She is not seeing him until Jul - I'd ask her PCP to check CBC every 2 weeks a few times to make sure the platelet count remains above 50K. He should call me if it goes down and cc results to me. She is seeing him Wed and could getthe first one drawn then. - Return in about 2 months to see Lesly Hu. We will get CBC then also. Assuming she stays well, at 3 months I'd reduce lovenox to 80 mg once daily and Lesly can implement that. Please contact me by [employer] or phone with uestions/concerns. HPI: Pt moved to [place] since her last visit so has new PCP and location for hospital care. Excerpted from my doc visit last week: I was called last week by Dr. Stone Bates, [facility] in [place]. Pt was admitted there with bilateral segmental and subsegmental pulmonary embolism after fracturing her wrist and having surgery for same. She held lovenox for 2 days prior to surgery, and resumed it after at 60 mg/d. She has not had any recent bleeding issues. She is not hypoxic. She didn't tolerate venous ultrasound of le's due to discomfort. I suggested diagnostically toget venous ultrasound of all 4 extremities to define source of pulmonary embolism. I sent pt a message in my chart encouraging her on this. Ativan could be used if needed. Treatment salcido, although she has had bleeding in the past, with pulmonary embolism she requires some level closer to therapeutic anticoagulation than she has been on (she has been well on lovenox 60 mg/d prophylaxis for some time) for some period of time. 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 With a pulmonary embolism I think this is not a reasonable option. So, I recommended Lovenox 80 mg BID (weight is approx 104 kg). Her plt count is 85K. I will see her in a few weeks in person or by telemedicine to discuss management going forward. She says they did scan all 4 extremities and she thinks there was no thrombosis. When she fracture her wrist she was also sedentary during this. She says she broke her wrist in the first place because she had near syncope. Her team thought her BP bottomed out. The pulmonary embolism presented with sob and pleuritic chest pressure at 3 am and called an ambulance. She is having no trouble with the injections. She has less bruising than she had from the lovenox shots in the hospital. She has bruises on her arm. No other abnormal bleeding and her breathing is better. Just a little residual chest pressure. Using O2 at home but sat was good here on room air. No black stools. New PCP since moving is Dr. David Gandara in [facility]. She is seeing him in 2 days. Social History: Patient reports that she has quit smoking. Her smoking use included cigarettes. She started smokingabout 2 months ago. She has a 8.8 pack-year smoking history. She has never used smokeless tobacco. She reports that she does not drink alcohol and does not use drugs. Social History Social History Narrative Moved to [facility] in [address] Tara has a son who moved to [facility] in 2022. She also has 3 grandchildren who she saw regularly until they moved to [place] with their dad, Tara' son. She is disabled. 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 She has a beloved dog, a shileonau who is 10 years old (in 2022) that was gifted to her by Haydee Murrieta when she was living in the [facility]. She had once helped Haydee Murrieta after Haydee fell; Haydee befriended Tara and gave her this dog. Medications: Current Outpatient Medications Medication albuterol 90 [...] tablet venlafaxine (EFFEXOR-XR) 150 mg XR capsule No current facility-administered medications for this visit. Facility-Administered Medications Ordered in Other Visits Medication Route Frequency albuterol (ACCUNEB) 2.5 mg /3 mL (0.083 %) nebulizer solution Allergies: Patient is allergic to metoclopramide, morphine, sulfa (sulfonamide antibiotics), tylenol [acetaminophen], flagyl [metronidazole], ambien [zolpidem], aspirin, injectafer [ferric carboxymaltose], lyrica [pregabalin], prochlorperazine, and reglan [metoclopramide hcl]. Physical Exam: Vitals: 03/19/24 1542 BP: 105/68 Pulse: 83 Resp: 16 Temp: 36.3 ??C (97.3 ??F) TempSrc: Skin SpO2: 98% Weight: (!) 102.2 kg (225 lb 6.4 oz) Height: 161.5 cm (63.58) Estimated body mass index is 39.2 kg/m?? as calculated from the following: Height as of this encounter: 161.5 cm (63.58). Weight as of this encounter: 102.2 kg (225 lb 6.4 oz). Wt Readings from Last 3 Encounters: 03/19/24 (!) 102.2 kg (225 lb 6.4 oz) 03/02/24 (!) 109 kg (240 lb 3.2 oz) 02/01/24 (!) 103 kg (227 lb) BMI Readings from Last 3 Encounters: 03/19/24 39.20 kg/m?? 03/02/24 41.23 kg/m?? 02/01/24 38.96 kg/m?? ] Gen: Alert and oriented x3. No distress. Some bruises on right arm and abdomen, on their way to resolving. Ext: Right: No lower extremity edema, hemosiderin deposits, petechiae, varicose veins. Left: No lower extremity edema, hemosiderin deposits, petechiae, varicose veins. Pulses: 2+ and symmetric Labs: Complete Blood Count Lab Results Component Value Date WBC 3.25 (L) 11/09/2023 WBC 3.47 (L) 09/14/2023 WBC 3.53 (L) 09/09/2023 RBC 4.27 11/09/2023 HGB 12.7 11/09/2023 HGB 12.9 09/14/2023 HGB 12.4 09/09/2023 HCT 37.8 11/09/2023 MCV 89 11/09/2023 PLT 103 (L) 11/09/2023 PLT 83 (L) 09/14/2023 PLT 92 (L) 09/09/2023 MPV 10.0 11/09/2023 RDWCV 13.5 11/09/2023 Lab Results Component Value Date DIFFTYPE Auto 09/14/2023 NEUTROABS 2.73 09/14/2023 ABSBAND 0.02 04/23/2019 LYMPHSABS 0.37 (L) 09/14/2023 MONOSABS 0.32 09/14/2023 EOSABS 0.03 09/14/2023 BASOSABS 0.02 08/29/2019 MYELOABS 0.02 10/21/2018 Anemia Workup (if applicable) Lab Results Component Value Date IRON 40 05/08/2022 TIBC 427 05/08/2022 FERRITIN 129 05/08/2022 FOLATE 7.5 02/11/2022 [id number] 386 07/28/2022 Chemistries Lab Results Component Value Date NA 138 12/12/2023 K 3.9 12/12/2023 CL 97 12/12/2023 CO2 31 12/12/2023 BUN 19 12/12/2023 CREATININE 1.28 (H) 12/12/2023 CALCGFR 47 (L) 12/12/2023 CALCIUM 9.0 12/12/2023 CALCCA 9.2 07/28/2021 MG 1.7 09/09/2023 PHOS 3.0 09/09/2023 LDH 320 06/28/2019 ALKPHOS 134 (H) 09/09/2023 AST 48 (H) 09/09/2023 ALT 32 09/09/2023 GGT 47 (H) 11/09/2018 CONJBILI 0.0 12/14/2022 UNCONJBILI 0.2 12/14/2022 BILIRUBIN Neg 09/20/2017 TBIL 1.1 09/09/2023 TP 6.9 09/09/2023 LABALBU 3.8 09/09/2023 AGRATIO 1.2 09/09/2023 LIPASE 114 09/07/2023 Cardiovascular No results found for: SCRP, ALBUMIN Lab Results Component Value Date CHOL 143 04/16/2022 LDLBASE 72 04/16/2022 CHOLHDL 2.4 04/16/2022 HDL 59 04/16/2022 TRIG 59 04/16/2022 Lab Results Component Value Date HOMOCYSTEINE 15.9 (H) 09/28/2022 TROPONINI <0.034 02/23/2023 Thrombosis Panel Lab Results Component Value Date ABO O 04/29/2023 PROTIME 13.4 (H) 09/09/2023 INR 1.2 (H) 09/09/2023 INR 1.2 (H) 09/08/2023 PTT 32 05/07/2022 DDIMER 1,494 (H) 12/14/2022 DDIMER 1,538 (H) 02/12/2022 FACTVIIIFA8 188 (H) 10/27/2021 ANTITHROM 69 (L) 10/27/2021 PROTCCLOT 59 (L) 10/27/2021 PROTSCLOT 96 10/27/2021 DRVVT 38.5 10/27/2021 SCT 39.6 10/27/2021 DH Prothrombin gene mutation and factor V Leiden testing not covered by patient's insurance. Imaging: Results have been documented within the past 5 years for the following orders US LOWER VENOUS DUPLEX Interpretation Summary No evidence of deep or superficial venous thrombosis in the right lower extremity. No evidence of deep or superficial venous thrombosis in the left lower extremity. Results have been documented within the past 5 years for the following orders CT ABDOMEN PELVIS W CONTRAST Narrative CT ABDOMEN PELVIS W CONTRAST 09/14/2023 5:35 PM Signs and Symptoms/Comments: pain, hx of thrombus, splenic infarcts; Portal vein thrombosis; pain, hx of thrombus, splenic infarcts; Technique: CT of the abdomen and pelvis was performed following the administration of intravenous contrast. This CT used either dose modulation and/or iterative reconstruction techniques to lower radiation dose. Comparison: CT renal stone 09/07/2023. CT AP with contrast 04/29/2023. Findings: Lower chest: Linear atelectasis within the left lower lung, otherwise clear lung bases. Liver: No concerning hepatic lesion. Unchanged intrahepatic portosystemic shunt at the right hepatic dome. Nodular contour of the hepatic capsule. Gallbladder: Surgically absent Bile ducts: Mild biliary ductal dilation, the common bile duct measures up to 10 mm, which can be seen in a postcholecystectomy state. Spleen: Splenomegaly, measures up to 13.5 cm craniocaudally, with unchanged chronic splenic infarcts status post coil embolization. No new focal lesion. Pancreas: Partial fatty replacement. No focal lesion, peripancreatic inflammation or ductal dilation. Adrenal glands: Unchanged low-attenuation left adrenal nodule. Normal right adrenal gland. Kidneys, ureters, bladder: Symmetric renal enhancement without concerning lesion. No hydroureteronephrosis or nephrolithiasis. Normal urinary bladder. Reproductive organs: Surgically absent uterus. No concerning adnexal mass. Bowel: No obstruction or acute inflammation. Noninflamed sigmoid diverticula. Surgically absent appendix. Peritoneal cavity: No free fluid or free air. Lymph nodes: No adenopathy. Vascular: Unchanged chronic thrombus within the expanded portal and splenic veins. Patent SMV and IMV. Scattered atherosclerotic calcifications within the nonaneurysmal abdominal aorta and its branches. Abdominal wall: Prior right ventral hernia repair with mesh. No bowel containing hernia. Unchanged numerous soft tissue nodules within the anterior subcutaneous abdominal wall, remains consistent with sequela of subcutaneous injections. Musculoskeletal: No acute fracture or aggressive osseous lesion. Degenerative changes of the spine. Bus Cleaner: No additional findings. Impression 1. No acute abnormality in the abdomen or pelvis. 2. Unchanged chronic nonocclusive portal/splenic thrombosis. 3. Splenomegaly with unchanged chronic infarcts. 4. Cirrhosis with stable intrahepatic portosystemic shunt within the right hepatic dome. 5. Sigmoid diverticulosis without acute inflammation. 6. Status post cholecystectomy, appendectomy, hysterectomy and ventral hernia repair with mesh. Results have been documented within the past 5 years for the following orders TRANSTHORACIC ECHO (TTE) COMPLETE Interpretation Summary Left Ventricle: Left ventricular systolic function was hyperdynamic with an ejection fraction =>65%. The estimated left ventricular ejection fraction by biplane Crockett's method was 67 %. Right Ventricle: Right ventricular systolic function was normal. I spent 40 minutes related to this patient's care today, which includes time with the patient, timereviewing medical records and reviewing imaging reports and laboratory results, time updating the chart information, and time composing this note. Dana Padilla MD, MSc core composer feeder Director, Thrombosis and Hemostasis Program CC: Pradip Gandara documented in this encounter Plan of Treatment Upcoming Encounters Date Type Department Care Team (Late st Contact Info) Description 01/04/2025 13:[address] [facility] [place] [id number] Gagandeep Rome MD [address] [facility], [address] [place] [phone] 02/11/2025 13:30 EDT Telemedicine [facility] Cancer Center Hematology & Oncology - [address] [phone] Dana Padilla MD [address] [facility], [address] [place] [phone] documented as of this encounter Visit Diagnoses Diagnosis Secondary hypercoagulable state (HCC-CMS)- Primary Secondary hypercoagulable state documented in this encounter Care Teams Comic Artist Relationship Specialty Start Date End Date Gabriel Gandara PA [address] [facility] [place] [phone] PCP - General 03/19/24 09/11/24 Izabella Snowden, JAVA WEB ENGINEER [address] [facility], [address] [place] [phone] Central Office Repairer 02/21/23 05/03/24 documented as of this encounter
--- OUTSIDE RECORDS SUMMARY | 2024-11-22 16:50 | XMS_ITS | Encounter Summary ---
Author Organization [facility] Address [address] [place] [address] Care Team Providers Care Interlibrary Loan Services Librarian Name Role Phone Izabella Snowden CHIP MIXING MACHINE OPERATOR Unavailable [phone] None, Provider Primary Care Provider Unavailabl e Reason for Visit * Reason Comments Pain * Consult (Routine) - Receiving Office to Obtain Authorization Specialty Diagnoses / Procedures Referred By Contkanchan t Referred To Contact Orthopedic Surgery Diagnoses Left wrist fracture Unknown, Provider, [facility] [place] [address] [place] [address] Phone: tel: fax: Referral ID Status Reason Start Date Expiration Date Visits Requested Visits Authorized [id number] Receiving Office to Obtain Authorization 1 1 Encounter Details Date Type Department Care Team (Late st Contact Info) Description 02/29/2024 14:00 EDT Office Visit [facility] [place] [address] [place] [address] Riky Butts MD [address] [place] [phone] Left wrist pain (Primary Dx); Thrombocytopenia (HCC-CMS) Social History Tobacco Use Types Packs/Day Years Used Date Smoking Tobacco: Some Days Cigarettes 0.3 35 Smokeless Tobacco: Never Tobacco Cessation:Ready to Q uit: Not Asked; Counseling Given: Not Answered Comments:3 cigarettes a day Alcohol Use Standard Drinks/Week Comments No 0 [...] 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 R hand dominant female who presents with a chief complaint of left wrist fracture. Patient fell about 2 weeks ago sustaining an isolated injury to her left wrist. This occurred in the morning she thinks she may have dropped her blood pressure. Seen in the emergencyroom where she was splinted in situ. She has been in a splint in which she has been uncomfortable. She has a history of chronic pain and takes oxycodone daily. She is unable to take Tylenol or anti-inflammatories secondary to history of liver and kidney disease. She is also followed by hematology for a history of a hypercoagulable state secondary to low platelets for which she is on Lovenox. She has had intermittent numbness and tingling in the hand. PMH: Documented and reviewed Medications: Documented and reviewed Social history: Documented and reviewed Surgical history: Documented and reviewed Social history: Documented and reviewed Family history: Documented and reviewed Allergy: Allergies Allergen Reactions Metoclopramide Nausea Only, Other (See Comments) and Shortness Of Breath Other reaction(s): RASH, SOB Jittery Morphine Anaphylaxis Sulfa (Sulfonamide Antibiotics) Anaphylaxis Tylenol [Acetaminophen] Other (See Comments) Contraindication with medical hx Flagyl [Metronidazole] Other (See Comments) Fatigue Ambien [Zolpidem] Other (See Comments) Amnesia--in [facility]. [place] campground; let to psych admission. Aspirin Other (See Comments) Contraindication with medical hx Injectafer [Ferric Carboxymaltose] Lyrica [Pregabalin] Anxiety Insomnia Prochlorperazine Reglan [Metoclopramide Hcl] Rash Review of Systems: Please see patient intake form for details. Physical Exam: Patient is awake, alert oriented x3 and appears comfortable. Examination of the leftwrist demonstrates mild swelling. There is visible deformity consistent with her injury. She has intact thumb and digital motion. She has intact but limited wrist motion. She is neurovascular intact motor and sensory testing. Thumb and fingers are well-perfused. She is nontender about the elbow or proximal forearm. She is diffusely tender about the wrist. There is no gross instability. X-rays were reviewed demonstrating a comminuted intra-articular shortened and dorsally angulated fracture of the distal radius. There is a fracture of the ulnar styloid. Plan: Gena has a severe left distal radius fracture. Fracture is aligned beyond acceptable limits and is now approximately 2 weeks old. We had a lengthy and thorough discussion regarding treatmentoptions in detail including operative versus continued nonoperative management and the risk benefits of each approach. Certainly on the standpoint of her fracture alignment and severity this is an injury for which surgery is appropriate. She has multiple medical problems and risk factors for a variety of potential surgical complications. Nature and natural history of this condition were discussedat length and in detail with the patient. Risks, benefits, and alternatives of treatment including operative versus nonoperative management were discussed. At this point the patient would like to proceed surgically. Risks reviewed include but are not limited to bleeding, infection, pain, stiffness,neurovascular or tendon injury, incomplete resolution of symptoms, prolonged recovery of symptoms, incomplete pentecostalism of motion comfort or function, recurrence or worsening of symptoms, nonunion, malunion, delayed union, hardware complications, exposure to coronavirus, or need for additional surgery. All questions were answered and postoperative course was discussed. The patient will be scheduled for surgery. They will call or return if any change in condition in the interim. Despite the implementation of preventative measures designed to reduce the spread of COVID-19, the risk of exposure in receiving healthcare services cannot be completely eliminated. Moreover, while the patient may be tested for COVID-19, the tests may fail to detect the virus, and/or the patient may contract COVID-19 after the test has been conducted. If there is a subsequent positive COVID-19 diagnosis, it could result in unanticipated complications that may require the need for additional medical treatment.Finally, there is still a great deal of uncertainty about the risks of COVID-19 at this time. Afterreviewing the risks, benefits, and alternatives, the patient wanted to proceed with surgery. I answered all questions. We will plan on ORIF left distal radius pending medical clearance. We have placed her back into a splint. She will need to continue pain management through her primary care physician. Riky Butts MD 02/29/2024 14:11 This note was dictated using voice recognition software. Please excuse any typos, errors, or omissions. * Jordan Guzman RN - 02/29/2024 1400 EDT Patient Education Topic: ORIF Left Distal Radius scheduled on 03/02/24 at [facility] [place] Method: Handout and Verbal Taught to: Patient Barriers: None Outcomes: verbalized understanding Topics dicussed: Will need racing car driver to and from surgery Fasting Guidelines Pre-op H&P needed within 30 days of scheduled procedure- pt will call PCP to schedule SHON Post- operative instructions and splint/dressing care Meds to hold - Lovenox: plan pending from PCP Lasix and Spironolactone- hold DOS Pt sent home with pre-operative information packet including written instructions on all of the above. No h/o bleeding or blood clotting disorders. No prior issues with anesthesia. All meds, allergies and medical history updated. Did not sign opioid consent. Plan will be for pt to be followed by PCP for postop pain as she is taking chronic oxycodone. PC to [facility] after Phyliss left the office. They will see her for preop tomorrow at 3 pm They will address her lovenox and post-op pain management. CBC ordered and faxed to [facility]. Pt aware she will need to present to outpatient lab for this . documented in this encounter Miscellaneous Notes * Addendum Note - Jordan Guzman RN - 02/29/2024 1400 EDTAddended by: JORDAN GUZMAN on: 02/29/2024 14:32 Modules accepted: Orders * Addendum Note - Jordan Guzman RN - 02/29/2024 1400 EDTAddended by: JORDAN GUZMAN on: 02/29/2024 15:07 Modules accepted: Orders documented in this encounter Plan of Treatment Upcoming Encounters Date Type Department Care Team (Late st Contact Info) Description 01/04/2025 13:00 EST Office Visit [facility] Ophthalmology - [address] [phone] Gagandeep Rome MD [address] [place] [address], [facility] [address] [place] [phone] 02/11/2025 13:30 EDT Telemedicine [facility] Hematology & Oncology - [address] [phone] Dana Padilla MD [address] [place] [address], [address] [place] [phone] Scheduled Orders Name Type Priority Associated Diagnoses Orde r Schedule COMPLETE BLOOD COUNT Lab Routine Thrombocytopenia ([facility]) Expected: 03/01/2024 (Approximate), Expires: 02/28/2025 documented as of this encounter Visit Diagnoses Diagnosis Left wrist pain- Primary Pain in joint, forearm Thrombocytopenia ([facility]) Thrombocytopenia, unspecified documented in this encounter Discontinued Medications Medication Sig Discontinue Reason Start Date End Da te spironolactone (ALDACTONE) 100 mg tablet Take 1 Tablet by mouth daily. Alternate therapy 12/16/2023 02/29/2024 documented as of this encounter Historical Medications * This list may reflect changes made after this encounter. oxyCODONE (ROXICODONE) 5 mg immediate release tablet Take 1 Tablet by mouth 4 times daily. added in this encounter Care Teams Interlibrary Loan Services Librarian Relationship Specialty Start Date End Date None, Provider PCP - General 02/24/24 03/18/24 Izabella Snowden, DARNELL 1 [facility], [address]rd [place] [phone] Fishery Division Chief 02/21/23 05/03/24 documented as of this encounter
--- OUTSIDE RECORDS SUMMARY | 2024-11-22 16:50 | XMS_ITS | Encounter Summary ---
Author Organization [facility] Address [address] [place] [address] Care Team Providers Care Opal Miner Name Role Phone Izabella Snowden MATHEMATICS LECTURER Unavailable [phone] None, Provider Primary Care Provider Unavailabl e Encounter Details Date Type Department Care Team (Latest Contact Info) Description 02/29/2024 13:36 EDT - 02/29/2024 23:59 EDT [address] Encounter [address] [facility] [address] [place] [address] Left wrist pain Discharge Disposition: Home or Self Care Social History Tobacco Use Types Packs/Day Years Used Date Smoking Tobacco: Some Days Cigarettes 0.3 35 Smokeless Tobacco: Never Comments:3 cigarettes a day Alcohol Use Standard [...] 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 Not on file Not [...] Info) Description 01/04/2025 13:00 EST Office Visit [facility] Ophthalmology [address] [phone] Gagandeep Rome MD [address] [place] [address], [address] [place] [phone] 02/11/2025 13:30 EDT Telemedicine [facility] Hematology & Oncology [address] [phone] Dana Padilla MD [address] [facility], [address] [place] [phone] documented as of this encounter Procedures Procedure Name Priority Date/Time Associated Diagnosis Comments XR WRIST LEFT 3 OR MORE VIEWS Routine 02/29/2024 13:46 EDT Left wrist pain documented in this encounter Results * XR WRIST LEFT 3 OR MORE VIEWS (02/29/2024 13:46 EDT) Anatomical Region Laterality Modality Upper Extremities Left Computed Radio graphy 02/29/2024 15:3 4 EDT Impressions 02/29/2024 15:34 EDT FINDINGS / IMPRESSION: * ??Comminuted intra-articular dorsally angulated impacted distal radial fracture with stable alignment. * ??Placed fracture through the base of the ulnar styloid with stable alignment. * ??XR WRIST LEFT 3 OR MORE VIEWS 4 views ?? [id number] Narrative 02/29/2024 15:34 EDT EXAM/TECHNIQUE: 02/29/2024 1:36 PM ??XR WRIST LEFT 3 OR MORE VIEWS ?? HISTORY: ??Left Distal Radius Fracture;M25.532:Left wrist pain Procedure Note Tino Wood MD - 02/29/2024 EXAM/TECHNIQUE: 02/29/2024 1:36 PM XR WRIST LEFT 3 OR MORE VIEWS HISTORY: Left Distal Radius Fracture;M25.532:Left wrist pain IMPRESSION FINDINGS / IMPRESSION: * Comminuted intra-articular dorsally angulated impacted distal radialfracture with stable alignment. * Placed fracture through the base of the ulnar styloid with stablealignment. * XR WRIST LEFT 3 OR MORE VIEWS 4 views [id number] Riky Butts MD IMG DIAGNOSTIC IMAGING ORDERAB LES Final Result documented in this encounter Visit Diagnoses Diagnosis Left wrist pain Pain in joint, forearm documented in this encounter Care Teams Opal Miner Relationship Specialty Start Date End Date None, Provider PCP - General 02/24/24 03/18/24 Izabella Snowden, DARNELL 1 [facility], [address]rd [place] [phone] Research Editor 02/21/23 05/03/24 documented as of this encounter
--- OUTSIDE RECORDS SUMMARY | 2024-11-22 16:50 | XMS_ITS | Encounter Summary ---
Author Organization [facility] Address [address] [place] [address] Care Team Providers Care Senior Engineering Specialist Name Role Phone Izabella Snowden MILK INSPECTOR Unavailable [phone] None, Provider Primary Care Provider Unavailabl e Reason for Visit * Reason Onset Date Comments Coordination Of Care 03/14/2024 Pt still ad mitted as of 03/14/24 Encounter Details Date Type Department Care Team (Late st Contact Info) Description 03/14/2024 Telephone [facility] Upper Extremity [facility] [place] [address] Elle Guzman, RN Coordination Of Care (Pt still admitted as of 03/14/24 ) Social History Tobacco Use Types Packs/Day [...] 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 Discussed limited orthopedic resources on site there. Ideally the pt will come her for her post op wound care and x-rays. She has an appointment with hematology on Monday 03/19 already and has transportation arranged for that currently. Advised she could be seen as a nurse visit on Monday 03/19 with me at 1400. The nurse will relay this to Tara Butts aware and approves of this plan. * Telephone Encounter - Sandra Zavala - 03/14/2024 1435 EDT Reason for Call: Coordination Of Care (Pt still admitted as of 03/14/24 ) Summary: [facility] called back plans changed and pt will be d/c today. She will not be able to attend tomorrows post on. Looking for cb to get pt r/s.When calling back ask for nurses station Appointment Offered? Nikki Zavala 03/14/2024 14:35 * Telephone Encounter - Elle Guzman RN - 03/14/2024 1313 EDT PC to [facility] to follow up on plans for Phyliss to be discharged today. Spoke with nurse who advised pt will be discharged this afternoon and will be able to present to her post op appointment with Dr Butts tomorrow as planned. documented in this encounter Plan of Treatment Upcoming Encounters Date Type Department Care Team (Late st Contact Info) Description 01/04/2025 13:00 EST Office Visit [facility] Ophthalmology - [address] [phone] Gagandeep Rome MD [address] [place] [address], [facility] 5 [place] [phone] 02/11/2025 13:30 EDT Telemedicine [facility] Hematology & Oncology - [address] [phone] Dana Padilla MD [address] [place] [address], [facility] 2 [place] [phone] documented as of this encounter Visit Diagnoses Not on filedocumented in this encounter Care Teams Senior Engineering Specialist Relationship Specialty Start Date End Date None, Provider PCP - General 02/24/24 03/18/24 Izabella Snowden, MILK INSPECTOR 1 [facility], 3rd [place] [phone] Cyber Security 02/21/23 05/03/24 documented as of this encounter
--- OUTSIDE RECORDS SUMMARY | 2024-11-22 16:50 | XMS_ITS | Encounter Summary ---
Author Organization [facility] Address [address] [place] [address] Care Team Providers Care Clinical Lab Clerk Name Role Phone Izabella Snowden TENT FINISHER Unavailable [phone] None, Provider Primary Care Provider Unavailabl e Reason for Visit * Reason Onset Date Comments Appointment Related 03/13/2024 Encounter Details Date Type Department Care Team (Late st Contact Info) Description 03/13/2024 Telephone [facility] Hematology & Oncology - [facility] [address] [place], [place] [phone] Dana Padilla MD 111 [facility], [facility] 2 [place] [phone] Appointment Related Social History Tobacco [...] 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 I was originally told PT would not be in [place] on 424, but in Pt took the open appt on 4.29 to 330 pm to see [facility](in person) and was reassured Pt would be in [place] to that time. Asked [facility] if she was comfortable doinga televideo appt. documented in this encounter Plan of Treatment Upcoming Encounters Date Type Department Care Team (Late st Contact Info) Description 01/04/2025 13:00 EST Office Visit [facility] Ophthalmology - [address] [phone] Gagandeep Rome MD [address] [place] [address] [address] [place] [phone] 02/11/2025 13:30 EDT Telemedicine [facility] Hematology & Oncology [address] [address] Dana Padilla MD [address] [place] [address], [address] [place] [phone] documented as of this encounter Visit Diagnoses Not on filedocumented in this encounter Care Teams Clinical Lab Clerk Relationship Specialty Start Date End Date None, Provider PCP - General 02/24/24 03/18/24 Izabella Snowden, [facility] 1 [facility], 3rd [place] [address] Director Of Distribution 02/21/23 05/03/24 documented as of this encounter
--- OUTSIDE RECORDS SUMMARY | 2024-11-22 16:50 | XMS_ITS | Encounter Summary ---
Author Organization [facility] Address [address] [place] [address] Care Team Providers Care Mother Superior Name Role Phone Izabella Snowden PAPER NOVELTY MAKER Unavailable [phone] None, Provider Primary Care Provider Unavailabl e Encounter Details Date Type Department Care Team (Late st Contact Info) Description 03/13/2024 Documentation Visit [facility] Cancer Center Hematology & Oncology - [facility] [address] [place] [address] Dana Padilla MD 111 [facility], [address] [place] [address] Social History Tobacco Use Types Packs/Day Years [...] 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 Stone Bates, [facility] in [place]. Pt was admitted there withbilateral segmental and subsegmental pulmonary embolism after fracturing her wrist and having surgery for same. She held lovenox for 2 days prior to surgery, and resumed it after at 60 mg/d. She has not had any recent bleeding issues. She is not hypoxic. She didn't tolerate venous ultrasound of le's due to discomfort. I suggested diagnostically to get venous ultrasound of all 4 extremities to [...] with just lovenox 60/d because she had had recent major bleeding. With a pulmonary embolism I think this is not a reasonable option. So, I recommended Lovenox 80 mg BID (weight is approx 104 kg). Her plt count is 85K. I will see her in a few weeks in person or by telemedicine to discuss management going forward. Dana Padilla MD MSc Professor and Attending, Hematology Director, Thrombosis and Hemostasis Program documented in this encounter Plan of Treatment Upcoming Encounters Date Type Department Care Team (Late st Contact Info) Description 01/04/2025 13:00 EST Office Visit [facility] Ophthalmology - [address] [phone] Gagandeep Rome MD [address] [place] [address], [facility] 5 [place] [phone] 02/11/2025 13:30 EDT Telemedicine [facility] Hematology & Oncology [address] [phone] Dana Padilla MD [address] [place] [address], [facility] 2 [place] [phone] documented as of this encounter Visit Diagnoses Not on filedocumented in this encounter Care Teams Mother Superior Relationship Specialty Start Date End Date None, Provider PCP - General 02/24/24 03/18/24 Izabella Snowden, [facility] 1 [facility], [address] [place] [address] Machine Straw Hat Presser 02/21/23 05/03/24 documented as of this encounter
--- OUTSIDE RECORDS SUMMARY | 2024-11-22 16:50 | XMS_ITS | Encounter Summary ---
Author Organization [facility] Address [address] [place] [address] Care Team Providers Care Cashier Payments Received Name Role Phone Izabella Snowden TELEPHONE ORDER CLERK Unavailable [phone] None, Provider Primary Care Provider Unavailabl e Encounter Details Date Type Department Care Team (Latest Contact Info) Description 02/29/2024 Prep for Procedure [facility] Orthopedics & Sport Medicine [address], [address] [place], [place] [phone] Elle Guzman RN Closed fracture of left [...] Date Record ed How often does anyone, gavinonevin yusra family, hit, punch or physically hurt [...] 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 Not on file Not [...] Info) Description 01/04/2025 13:00 EST Office Visit [facility] Ophthalmology - [address] [phone] Gagandeep Rome MD [address] [place] [address] 5 [place] [phone] 02/11/2025 13:30 EDT Telemedicine [facility] Hematology & Oncology - [address] [phone] Dana Padilla MD [address] [place] [address], [facility] 2 [place] [phone] documented as of this encounter Visit Diagnoses Diagnosis Closed fracture of left wrist with routine healing, subsequent encounter- Primary documented in this encounter Care Teams Cashier Payments Received Relationship Specialty Start Date End Date None, Provider PCP - General 02/24/24 03/18/24 Izabella Snowden LICSW 1 [facility], [address]rd [place] [phone] Paper Products Supervisor 02/21/23 05/03/24 documented as of this encounter
--- OUTSIDE RECORDS SUMMARY | 2024-11-22 16:50 | XMS_ITS | Encounter Summary ---
Author Organization [facility] Address [address] [place] [address] Care Team Providers Care Bi Tri Operator Name Role Phone Izabella Snowden WOUND CARE COORDINATOR Unavailable [phone] None, Provider Primary Care Provider Unavailabl e Reason for Visit * Reason Onset Date Comments Cast Repair 03/03/2024 Encounter Details Date Type Department Care Team (Late st Contact Info) Description 03/03/2024 Telephone [facility] Hand & Upper Extremity [place] [address] [place] [address] Rachel Witt MD [address] [place] [address] Cast Repair Social History Tobacco Use Types Packs/Day Years [...] 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 female that underwent left distal radius ORIF on 03/02/[address] Butts. Calling today due to splint issue. She states that it feels as though the plaster of her splint is cutting into her thumb somewhat. Recommended patient present to ED for cast examination. She states that this is a far drive, so she will present to the nearest urgent care for further assessment. All questions and concerns were answered. RACHEL WITT MD 03/03/24 9:52 Orthopaedic Surgery QI Initiative: Approximate time of call: [id number] Caller: Self Service-Attending - Upper Extremity - Dr. Butts Category - Cast/splint issue Date of Surgery: 03/02/24 Action - Directed to ED or Urgent Care immediately documented in this encounter Plan of Treatment Upcoming Encounters Date Type Department Care Team (Late st Contact Info) Description 01/04/2025 13:00 EST Office Visit [facility] Ophthalmology - [address] [address] Gagandeep Rome MD 111 [facility], Level [address] [place] [phone] 02/11/2025 13:30 EDT Telemedicine [facility] Hematology & Oncology - [address] [phone] Dana Padilla MD 111 [facility], Level [address] [place] [phone] documented as of this encounter Visit Diagnoses Not on filedocumented in this encounter Care Teams Bi Tri Operator Relationship Specialty Start Date End Date None, Provider PCP - General 02/24/24 03/18/24 Izabella Snowden, WOUND CARE COORDINATOR 1 [facility], 3rd [place] [phone] Director Of Estate 02/21/23 05/03/24 documented as of this encounter
--- OUTSIDE RECORDS SUMMARY | 2024-11-22 16:50 | XMS_ITS | Encounter Summary ---
Author Organization [facility] Address [address] [place] [address] Care Team Providers Care District Court Justice Name Role Phone Izabella Snowden SSIS SSRS DEVELOPER Unavailable [phone] None, Provider Primary Care Provider Unavailabl e Reason for Visit * Reason Onset Date Comments Appointment Related 03/16/2024 Encounter Details Date Type Department Care Team (Late st Contact Info) Description 03/16/2024 Telephone [facility] Rehabilitation Therapy - [address] [address] Therapy, Physical Appointment Related Social History Tobacco Use Types [...] 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 Primary Insurance: [facility] MEDICARE - Have you been seen in therapy since November first of this year? No Secondary Insurance[place] or [place]CO plan - any age REFERRAL REQUIRED. Maritza Sanchez 03/16/2024 documented in this encounter Plan of Treatment Upcoming Encounters Date Type Department Care Team (Late st Contact Info) Description 01/04/2025 13:00 EST Office Visit [facility] Ophthalmology - [address] [phone] Gagandeep Rome MD [address] [place] [address], [facility] 5 [place] [phone] 02/11/2025 13:30 EDT Telemedicine [facility] Hematology & Oncology - [address] [phone] Dana Padilla MD [address] [place] [address], Level 2 [place] [phone] documented as of this encounter Visit Diagnoses Not on filedocumented in this encounter Care Teams District Court Justice Relationship Specialty Start Date End Date None, Provider PCP - General 02/24/24 03/18/24 Izabella Snowden LICSW 1 [facility], 3rd [place] [address] Aircraft Machinist Helper 02/21/23 05/03/24 documented as of this encounter
--- OUTSIDE RECORDS SUMMARY | 2024-11-22 16:50 | XMS_ITS | Encounter Summary ---
Author Organization [facility] Address [address] [place] [address] Care Team Providers Care Flatwork Folder Name Role Phone Izabella Snowden CHEESE PANCAKE ROLLER Unavailable [phone] None, Provider Primary Care Provider Unavailabl e Reason for Referral * Radiology Services (Routine/Next Available) - Authorization Not Required Specialty Diagnoses / Procedures Referred By Contkanchan t Referred To Contact Diagnoses Fracture of unspecified carpal bone, left wrist, initial encounter for closed fracture Procedures FL C-ARM MINI WITH IMAGES Riky Butts MD [address] [place] [phone] Phone: tel: fax: [facility] Referral ID Status Reason Start Date Expiration Date Visits Requested Visits Authorized [id number] Authorization Not Required 03/02/2024 1 1 Reason for Visit * Auth/Cert (Routine) Specialty Diagnoses / Procedures Referred By Contac t Referred To Contact Diagnoses Closed fracture of left wrist, initial encounter Closed fracture of left wrist, initial encounter [S62.102A] Procedures MD OPTX DSTL RADL I-ARTIC FX/EPIPHYSL SEP 3 FRAG Open Reduction Internal Fixation Left Distal Radius Referral ID Status Reason Start Date Expiration Date Visits Re quested Visits Authorized [id number] 1 1 Encounter Details Date Type Department Care Team (Latest Contact Info) Description 03/02/2024 11:24 EDT - 03/02/2024 23:59 EDT Hospital Encounter [facility] Xray [address] [place] [address] Fracture of unspecified carpal bone, left wrist, initial encounter for closed fracture Discharge Disposition: Home or Self Care Social [...] 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 Not on [...] Office Visit [facility] Ophthalmology - [address] [phone] Gagandeep Rome MD [address] [place] [address], [facility] 5 [place] [phone] 02/11/2025 13:30 EDT Telemedicine [facility] Hematology & Oncology - [address] [phone] Dana Padilla MD 111 [facility], [facility] 2 [place] [address] documented as of this encounter Procedures Procedure Name Priority Date/Time Associated Diagnosis Comments FL C-ARM MINI WITH IMAGES Routine 03/02/2024 15:58 EDT Fracture of unspecified carpal bone, left wrist, initial encounter for closed fracture documented in this encounter Results * FL C-ARM MINI WITH IMAGES (03/02/2024 15:58 EDT) Narrative 03/02/2024 15:58 EDT This is a non-reportable exam. us Riky Butts MD IMG FLUOROSCOPY ORDERABLES Fin al Result documented in this encounter Visit Diagnoses Diagnosis Fracture of unspecified carpal bone, left wrist, initial encounter for closed fracture documented in this encounter Care Teams Flatwork Folder Relationship Specialty Start Date End Date None, Provider PCP - General 02/24/24 03/18/24 Izabella Snowden, CHEESE PANCAKE ROLLER 1 [facility], 3rd [place] [address] Hearing Aid Assembly Supervisor 02/21/23 05/03/24 documented as of this encounter
--- OUTSIDE RECORDS SUMMARY | 2024-11-22 16:51 | XMS_ITS | Encounter Summary ---
Author Organization [facility] Address [address] [place] [address] Care Team Providers Care Soakers Supervisor Name Role Phone Emigdio Veronica MD Primary Care Provider + Izabella Snowden FINGERPRINT CLERK Unavailable [phone] Encounter Details Date Type Department Care Team (Late st Contact Info) Description 12/02/2023 Patient Outreach [facility] Adult Primary Care - [place] [address] [place] [address] Izabella Snowden LICSW 1 [facility], [address]rd [place] [address] Social History Tobacco Use Types Packs/Day Years Used Date Smoking Tobacco: Every Day Cigarettes 0.3 35 Smokeless Tobacco: Never Comments:3 [...] 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 TOPIC OF CONVERSATION: Reviewed assessment and plan from previous visit with patient. Engaged patient in conversation related to positive behavior change, self- management, goal setting and action planning using motivational interviewing and active listening. Patient reports that she will be moving to [place], [place] on Dec 22-she was able to obtain an apartment that accepts her dog and that is the same rent as she currently pays. She is looking forward to getting out of her current living situation and to be closer to her family. Patient inquired about contact information for RCT transportation in [place], [place]. Provided patient for RCT number in [place], [place]. Patient has follow up with Dr. Veronica on 12/26/23 but she plans to call the office to see if she canreschedule for before she leaves. Patient plans to continue with Dr. Veronica for her medications but is also wanting to look for a provider closer to her new community. Provided patient with contact information for [facility] and [facility] in [place], [place]. Patient also plans to start PT in [facility] once she moves. Prioritized Patient Identified Goals: Patient will follow up with Electric Crane Operator in the next to 2 weeks to begin housing applications for the [facility] area. Achievement towards goals: Completed 2. Patient will contact [facility] today to apply for emergency housing. Achievement towards goals: Completed 3. New Goal: Patient will contact [facility] within the next month to arrange for Transportation. 2. Patient will contact [facility] within the next month to establish care. Plan: CM will follow-up in one month DARNELL MCCORMICK 12/02/2023 12:37 documented in this encounter Plan of Treatment Upcoming Encounters Date Type Department Care Team (Late st Contact Info) Description 01/04/2025 13:00 EST Office Visit [facility] Ophthalmology [address] [phone] Gagandeep Rome MD [address] [place] [address], [facility] 5 [place] [phone] 02/11/2025 13:[address] [facility] Hematology & Oncology [address] [phone] Dana Padilla MD [address] [place] [address], [facility] 2 [place] [address] documented as of this encounter Visit Diagnoses Not on filedocumented in this encounter Care Teams Soakers Supervisor Relationship Specialty Start Date End Date Emigdio Veronica MD 2 [place] [address] PCP - General Internal Medicine - Primary Care 05/22/20 02/21/24 Izabella Snowden LICSW 1 [facility], 3rd [place] [address] Analyst Food And Beverage 02/21/23 05/03/24 documented as of this encounter
--- OUTSIDE RECORDS SUMMARY | 2024-11-22 16:51 | XMS_ITS | Encounter Summary ---
Author Organization [facility] Address [address] [place] [address] Care Team Providers Care Organizational Research Consultant Name Role Phone Emigdio Veronica MD Primary Care Provider + Izabella Snowden [facility] [phone] Reason for Visit * Reason Onset Date Comments Other 01/16/2024 Medicaid Ride Au thorization Form Paperwork request 01/16/2024 Physician Refe rral Form Encounter Details Date Type Department Care Team (Late st Contact Info) Description 01/16/2024 Telephone [facility] Adult Primary Care - [place] [address] [place] [address] Emigdio Veronica MD [address] [place] [address] Other (Medicaid Ride Authorization Form); Paperwork request (Physician Referral Form) Social History Tobacco Use Types Packs/Day Years [...] 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 * Telephone Encounter - Cynthia Huang - 01/16/2024 1325 EST Reason for Call: Other (Medicaid Ride Authorization Form) Summary/Symptoms: Pt is calling as she has moved. Medicaid will not authorize transportation without an Physician Referral Form being filled out by the Physician as the Pt is now over 100 miles away. Please call [phone] with any clarifying questions. Onset and Duration: N/A Previously seen at/discussed with this office for issue: No Does the patient have a computer, laptop or smart phone with high speed & video capability? N/A If so, would they be interested in doing a video visit via [employer]? N/A Appointment Offered? No Cynthia Huang 01/16/2024 13:25 documented in this encounter Plan of Treatment Upcoming Encounters Date Type Department Care Team (Late st Contact Info) Description 01/04/2025 13:00 EST Office Visit [facility] Ophthalmology - [address] [phone] Gagandeep Rome MD [address] [place] [address] 5 [place] [phone] 02/11/2025 13:30 EDT Telemedicine [facility] Hematology & Oncology [address] [phone] Dana Padilla MD [address] [place] [address] 2 [place] [address] documented as of this encounter Visit Diagnoses Not on filedocumented in this encounter Care Teams Organizational Research Consultant Relationship Specialty Start Date End Date Emigdio Veronica MD [address] [place] [address] PCP - General Internal Medicine - Primary Care 05/22/20 02/21/24 Izabella Snowden, [facility] 1 [facility], 3rd [place] [address] Mailing Machine Operator 02/21/23 05/03/24 documented as of this encounter
--- OUTSIDE RECORDS SUMMARY | 2024-11-22 16:51 | XMS_ITS | Encounter Summary ---
Author Organization [facility] Address [address] [place] [address] Care Team Providers Care Business And Marketing Teacher Name Role Phone Emigdio Veronica MD Primary Care Provider + Izabella Snowden 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 90 Tablet 1 12/16/2023 02/29/2024 oxyCODONE (ROXICODONE) 5 mg immediate release tablet Take 1 Tablet by mouth 3 times daily as needed for up to 28 days for Pain. Daily Max: 15 mg 84 Tablet 12/16/2023 01/09/2024 documented in this encounter Miscellaneous Notes * Telephone Encounter - Heike Rosado RN - 12/16/2023 1431 EST Call to Patient Pt scheduled with [facility] for next wk and is aware Patient expressed understanding with no barriers No additional questions or concerns to be addressed at this time. LM for pt that refills sent to pharmacy as requested. Call back with ?s HEIKE ROSADO RN 12/16/2023 14:33 * Telephone Encounter - Lon Mathews MD - 12/16/2023 1427 EST POS fill. Consistent with prior prescribing. Script signed. Thank you, Lon Mathews MD [facility] Internal Medicine, Adult Primary Care - [place] * Telephone Encounter - Heike Rosado RN - 12/16/2023 7572 EST Call from pt She is aware appt cx for today States she had a fall last night but did not hit head. Legs are a little bruised but she is ok She moves on 12/22. Can come in for appt on 12/19 or 12/20 as that is when she has a ride. Tuesday out cannot come as does not have a ride Scheduled pt with dr ortez on Tuesday as a fall back if cannot get pt in with GG next wk. Pt aware. States there are 2 refills she needs today: Oxycodone , aldactone,(100 mg a day) doxepin (has refills) Requested Prescriptions Pending Prescriptions Disp Refills oxyCODONE (ROXICODONE) 5 mg immediate release tablet 84 Tablet 0 Sig: Take 1 Tablet by mouth 3 times daily as needed for up to 28 days for Pain. Daily Max: 15 mg spironolactone (ALDACTONE) 100 mg tablet 90 Tablet 1 Sig: Take 1 Tablet by mouth daily. [facility]/pharmacy #[id number] Confirmed Pharmacy? Yes Patient out of medication? Yes: Needs Refill Now How many pills does patient have left? unknown Last Refill Date: 11/19/22 and for oxycodone 11/18 Refills left? (explain exceptions requiring early refill) No Recent Visits Date Type Provider Dept 11/17/23 Office Visit Emigdio Veronica III, MD [facility] Adult Prim Care 09/21/23 Office Visit Emigdio Veronica III, MD [facility] Adult Prim Care 09/13/23 Office Visit Emigdio Veronica III, MD [facility] Adult Prim Care 09/07/23 Office Visit Scottie Campuzano PA-C [facility] Adult Prim Care 08/25/23 Office Visit Ruth Ortez MD PhD [facility] Adult Prim Care 07/13/23 Office Visit Emigdio Veronica III, MD [facility] [place] Adult Prim Care 06/29/23 Office Visit Scottie Campuzano PA-C [facility] Adult Prim Care 06/10/23 Office Visit Emigdio Veronica III, MD [facility] Adult Prim Care 05/26/23 Office Visit Scottie Campuzano PA-C [facility] Adult Prim Care 05/05/23 Office Visit Emigdio Veronica III, MD [facility] Adult Prim Care Showing recent visits within past 540 days with a meds authorizing provider and meeting all other requirements Future Appointments Date Type Provider Dept 12/19/23 Appointment Ruth Ortez MD PhD [facility] Adult Prim Care Showing future appointments within next 150 days with a meds authorizing provider and meeting all other requirements Future appointment: Already Scheduled Pended for DOS HEIKE ROSADO RN 12/16/2023 14:12 * Telephone Encounter - Heike Rosado RN - 12/16/2023 1059 EST [facility] today [facility] Trying to reschedule pt with Dr Veronica for next wk if possible HEIKE ROSADO RN 12/16/2023 11:00 documented in this encounter Plan of Treatment Upcoming Encounters Date Type Department Care Team (Late st Contact Info) Description 01/04/2025 13:00 EST Office Visit [facility] Ophthalmology [address] [phone] Gagandeep Rome MD [address] [place] [address], [facility], [address] [place] [address] 02/11/2025 13:30 EDT Telemedicine [facility] Hematology & Oncology [address] [phone] Dana Padilla MD 111 [facility], [address] 2 [place] [address] documented as of this encounter Visit Diagnoses Not on filedocumented in this encounter Discontinued Medications Medication Sig Discontinue Reason Start Date End Da te oxyCODONE (ROXICODONE) 5 mg immediate release tablet Take 1 Tablet by mouth 3 times daily as needed for up to 28 days for Pain. Daily Max: 15 mg Reorder 11/18/2023 12/16/2023 documented as of this encounter Care Teams Business And Marketing Teacher Relationship Specialty Start Date End Date Emigdio Veronica MD [address] [place] [address] PCP - General Internal Medicine - Primary Care 05/22/20 02/21/24 Izabella Snowden, [facility] 1 [facility], 3rd [place] [phone] Pet Caretaker 02/21/23 05/03/24 documented as of this encounter
--- OUTSIDE RECORDS SUMMARY | 2024-11-22 16:51 | XMS_ITS | Encounter Summary ---
Author Organization [facility] Address [address] [place] [address] Care Team Providers Care Tumbling Machine Operator Name Role Phone Izabella Snowden HOME ECONOMICS EXTENSION WORKER Unavailable [phone] None, Provider Primary Care Provider Unavailabl e Reason for Visit * Reason Onset Date Comments Appointment Related 02/27/2024 Medicaid Aut horization for Transportation appointments 02/29/24 Encounter Details Date Type Department Care Team (Late st Contact Info) Description 02/27/2024 Telephone [facility] Hand & Upper Extremity Program - [address] [place] [address] Riky Butts MD [address] [place] [phone] Appointment Related (Medicaid Authorization for Transportation appointments 02/29/24 ) Social History Tobacco Use Types Packs/Day [...] 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 I printed the form off and will bring it up to Elroy to be filled out. Needs to be faxed back this afternoon too coordinate ride. Appointment Offered? Nikki HANSEN 02/28/2024 8:38 * Telephone Encounter - Elroy Valdes MA - 02/28/2024 0819 EDT PC to patient, patient states she will get form that needs to be filled out and fax it over to us so it can be filled out. I will keep a look out for the form and assured patient it will be filled out once received. ELROY VALDES MA 02/28/24 8:20 * Telephone Encounter - Sandra Zavala - 02/27/2024 1323 EDT Reason for Call: Appointment Related (Medicaid Authorization for Transportation appointments 02/29/24 ) Summary: Pt called said she need medicaid authorization form filled out for her appointment on Tue02/29/24. Pt is coming from 3 hours away. Needs to make sure this is completed and submitted for medicaid to approve and book her ride. Pt would like a cb to discuss. Appointment Offered? Nikki Zavala 02/27/2024 13:23 documented in this encounter Plan of Treatment Upcoming Encounters Date Type Department Care Team (Late st Contact Info) Description 01/04/2025 13:00 EST Office Visit [facility] Ophthalmology - [address] [phone] Gagandeep Rome MD [address] [place] [address] 5 [place] [phone] 02/11/2025 13:30 EDT Telemedicine [facility] Hematology & Oncology - [address] [phone] Dana Padilla MD [address] [place] [address], [facility] 2 [place] [phone] documented as of this encounter Visit Diagnoses Not on filedocumented in this encounter Care Teams Tumbling Machine Operator Relationship Specialty Start Date End Date None, Provider PCP - General 02/24/24 03/18/24 Izabella Snowden, DARNELL 1 [facility], 3rd [place] [phone] Quarry Supervisor Dimension Stone 02/21/23 05/03/24 documented as of this encounter
--- OUTSIDE RECORDS SUMMARY | 2024-11-22 16:51 | XMS_ITS | Encounter Summary ---
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 (5 years old or older) Answer Entry Date Author No 09/08/2023 17:08 Aj Hall RN documented in this encounter Progress Notes * Izabella Snowden, [facility] - 02/21/2024 1415 EDT [facility] Care Management Follow Up Aids Social Worker followed up with patient by phone for wellness check. TOPIC OF CONVERSATION: Reviewed assessment and plan from previous visit with patient. Engaged patient in conversation related to positive behavior change, self- management, goal setting and action planning using motivational interviewing and active listening. Patient was at orthopedics office in [facility], waiting to be seen when I called. Patient reports that she had fallen and broken her arm. Woke up in the am took a few steps and fell, blood pressure was low. Currently in a brace and waiting to see if swelling reduced so she can geta cast. Otherwise, patient reports that things are going well. She updated that she has found a new PCP to take over her care. It has been too difficult for her to continue traveling to [facility]. Was able to establish care with Dr. Carlos Gandara in [place], [place]. She reports that he willbe able to take over managing her pain medications. Patient plans to reach out to Dr. Veronica to discuss. Unfortunately new PCP office does not have Social Work supports embedded in the practice-we discussed how I would not be able to continue working with her for care management once she is no longer patient at [facility]. We agree to check in one more time next month to ensure that she has transitioned andhas supports in place. Medication reviewed: No new needs identified Social determinants of health needs reviewed: No new needs identified Gaps in community resources: No new needs identified Education provided on condition and/or disease: no Prioritized Patient Identified Goals: Patient will contact [facility] within the next month to establish care. Achievement towards goals: Completed 2. New Goal: Patient will reach out to her primary Dr. Veronica within the next 2 weeks to discuss transition to new PCP. Plan: CM will follow-up in one month DARNELL MCCORMICK 02/21/2024 14:15 documented in this encounter Plan of Treatment Upcoming Encounters Date Type Department Care Team (Late st Contact Info) Description 01/04/2025 13:00 EST Office Visit [facility] Ophthalmology - [address] [phone] Gagandeep Rome MD [address] [place] [address] 5 [place] [phone] 02/11/2025 13:30 EDT Telemedicine [facility] Hematology & Oncology - [address] [phone] Dana Padilla MD [address] [place] [address], [facility] 2 [place] [phone] documented as of this encounter Visit Diagnoses Not on filedocumented in this encounter Care Teams Service Person Relationship Specialty Start Date End Date Emigdio Veronica MD [address] [place] [address] PCP - General Internal Medicine - Primary Care 05/22/20 02/21/24 Izabella Snowden LICSW 1 [facility], [address] [place] [address] Aids Social Worker 4/3/23 6/13/24 documented as of this encounter
--- OUTSIDE RECORDS SUMMARY | 2024-11-22 16:51 | XMS_ITS | Encounter Summary ---
Author Organization [facility] Address [address] [place] [address] Care Team Providers Care Forensic Locksmith Name Role Phone Emigdio Fernandez MD Primary Care Provider + Izabella Snowden [facility] Unavailable [phone] Reason for Visit * Reason Onset Date Comments Labs Only 12/12/2023 Encounter Details Date Type Department Care Team (Late st Contact Info) Description 12/12/2023 Telephone [facility] Adult Primary Care - [place] [address] [place] [address] Emigdio Fernandez MD [address] [place] [address] Labs Only Social History Tobacco Use Types Packs/Day Years [...] place to sleep or slept in a [place] health care facility (including now)? 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 Discussed with her that the CBC was a different tube than the BMP that was already drawn. Discussed that her last CBC was 11/09. She states hematology had a standing order for her for CBC that in October Advised her to touch base with hematology to have them order another CBC. States she will discuss this with DR Fernandez when she sees him on 12/16 States she is moving next week but still plans on seeing dr fernandez for f/u's every 3 months, so hewill still be filling her refills. She will discuss what refills she needs at her appt with him. States last week she had some leg swelling so went up to the lasix 60 mg dose for a few days, but normally is taking the 40 mg daily. She will only take 40 mg daily until she discusses at her appt tuesday Patient expressed understanding with no barriers No additional questions or concerns to be addressed at this time. HEIKE ROSADO RN 12/13/2023 13:30 * Telephone Encounter - Cynthia Huang - 12/13/2023 1306 EST Pt calling back * Telephone Encounter - Heike Rosado RN - 12/13/20[address] [facility] HEIKE ROSADO RN 12/13/2023 9:37 * Telephone Encounter - Emigdio Fernandez III, MD - 12/13/2023 0918 EST The BMP was the primary lab we wanted to check to monitor her kidney function. Her lipids would be reasonable to check, but the blood sample was not fasting so I would postpone this until we can secure a fasting sample. She recently completed a repeat CBC from her senior business manager and would have her present to the lab to check in on her cytopenias at there recommended intervals. In short I have no pressing labs I would add on at this time. Her BMP does reflect straining kidney function. I would have her dose reduce her lasix to 40 mg daily until our next encounter. * Telephone Encounter - Jes Mayorga RN - 12/13/2023 0908 EST Routing to pcp. Unsure if additional lab testing needed. [place] top only drawn. * Telephone Encounter - Cynthia Huang - 12/13/2023 0808 EST Pt is calling as she got her BMP drawn last night but was under the impression that she was gettingmore than her BMP checked. Please call and advise. * Telephone Encounter - Cynthia Huang - 12/12/2023 1643 EST Reason for Call: Labs Only Summary/Symptoms: Pt is calling as she is at the lab at the hospital as Dr. Fernandez told her last week over the phonehe wanted her to have labs done prior to her upcoming appointment, no labs ordered. Onset and Duration: N/A Previously seen at/discussed with this office for issue: Yes Does the patient have a computer, laptop or smart phone with high speed & video capability? N/A If so, would they be interested in doing a video visit via [employer]? N/A Appointment Offered? No Cynthia Huang 12/12/2023 16:43 documented in this encounter Plan of Treatment Upcoming Encounters Date Type Department Care Team (Late st Contact Info) Description 01/04/2025 13:00 EST Office Visit [facility] Ophthalmology - [address] [address] Gagandeep Rome MD [address] [place] [address], [facility] 5 [place] [address] 02/11/2025 13:30 EDT Telemedicine [facility] Hematology & Oncology [address] [address] Dana Padilla MD [address] [place] [address], [facility] 2 [place] [address] documented as of this encounter Results * (ABNORMAL) BASIC METABOLIC PANEL (BMP) (12/12/2023 16:58 EST) Sodium 138 136 - 145 mmol/L 12/12/2023 17:41 EST [facility] Potassium 3.9 3.5 - 5.0 mmol/L 12/12/2023 17:41 EST [facility] Chloride 97 96 - 110 mmol/L 12/12/2023 17:41 EST [facility] CO2 Total 31 22 - 32 mmol/L 12/12/2023 17:41 EST [facility] Anion Gap 10 5 - 14 mmol/L 12/12/2023 17:41 [facility] Glucose 162(H) 70 - 99 mg/dl 12/12/2023 17:41 [facility] Calcium 9.0 8.5 - 10.5 mg/dL 12/12/2023 17:41 [facility] BUN 19 10 - 26 mg/dL 12/12/2023 17:41 [facility] Creatinine 1.28(H) 0.52 - 1.04 mg/dL 12/12/2023 17:41 [facility] eGFR 47(L) >60 mL/min/1.73 m2 12/12/2023 17:41 [facility] Blood VENOUS BLOOD / Unknown Venipuncture / Unknown 12/12/2023 16:58 EST 12/12/2023 17:12 EST us Emigdio Fernandez MD CHEMISTRY & BLOOD GAS OR DERABLES Final Result Performing Organization Address City/State/[facility] Co de Phone Number [facility] [address] [place] [address] documented in this encounter Visit Diagnoses Diagnosis Stage 3a chronic kidney disease (HCC-CMS)- Primary documented in this encounter Care Teams Forensic Locksmith Relationship Specialty Start Date End Date Emigdio Fernandez MD [address] [place] [address] PCP - General Internal Medicine - Primary Care 05/22/20 02/21/24 Izabella Snowden, [facility] 1 [facility], 3rd [place] [address] Insurance Agency Owner 02/21/23 05/03/24 documented as of this encounter
--- OUTSIDE RECORDS SUMMARY | 2024-11-22 16:51 | XMS_ITS | Encounter Summary ---
Author Organization 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 30 Tablet 1 02/22/2024 documented in this encounter Miscellaneous Notes * Telephone Encounter - Pam Ivey RN - 02/22/2024 1413 EDT Phone call to Pt. Let her know that Rx has been sent. Ensured she was aware that these are 100mg caps, not 50mg, so she will only take 1 capsule. Pt verbalized understanding. No barriers. Pt says that ortho in [place] is sending paperwork over to ortho [address] regarding her fracturedarm to help coordinate her being able to have surgery on her arm within the next couple weeks at [facility]. Pt will check with [facility] ortho in the next few days to ensure they received what they need, if she hasn't heard from them by then. * Telephone Encounter - Alida Huanga - 02/22/2024 0950 EDT Requested Prescriptions Pending Prescriptions Disp Refills traZODone (DESYREL) 50 mg tablet 30 Tablet 1 Sig: Take 1 Tablet by mouth at bedtime. [id number] [place] - [address] [place] [address] AT [facility] Confirmed Pharmacy? Yes Patient out of medication? Yes: Needs Refill Now How many pills does patient have left? 0 as Pt is taking 100mg as discussed with GG Last Refill Date: 02/01/24 Refills left? (explain exceptions requiring early refill) Yes, 1 but with old instructions and qty Recent Visits Date Type Provider Dept 02/01/24 Office Visit Emigdio Veronica MD [facility] Adult Prim Care 12/21/23 Office Visit Emigdio Veronica MD [facility] Adult Prim Care 11/17/23 Office Visit Emigdio Veronica MD [facility] Adult Prim Care 09/21/23 Office Visit Emigdio Veronica MD [facility] Adult Prim Care 09/13/23 Office Visit Emigdio Veronica MD [facility] Adult Prim Care 09/07/23 Office Visit Scottie Campuzano PA-C [facility] Adult Prim Care 08/25/23 Office Visit Ruth Ortez MD PhD [facility] Adult Prim Care 07/13/23 Office Visit Emigdio Veronica MD [facility] Adult Prim Care 06/29/23 Office Visit Scottie Campuzano PA-C [facility] Adult Prim Care 06/10/23 Office Visit Emigdio Veronica MD [facility] Adult Prim Care Showing recent visits within past 540 days with a meds authorizing provider and meeting all other requirements Future Appointments Date Type Provider Dept 03/07/24 Appointment Emigdio Veronica MD [facility] Adult Prim Care Showing future appointments within next 150 days with a meds authorizing provider and meeting all other requirements Future appointment: Already Scheduled Cynthia Huang 02/22/2024 9:51 documented in this encounter Plan of Treatment Upcoming Encounters Date Type Department Care Team (Late st Contact Info) Description 01/04/2025 13:00 EST Office Visit [facility] Ophthalmology - [address] [phone] Gagandeep Rome MD [address] [place] [address], [address] [place] [address] 02/11/2025 13:30 EDT Telemedicine [facility] Hematology & Oncology - [address] [phone] Dana Padilla MD 111 [facility], Level [address] [place] [phone] documented as of this encounter Visit Diagnoses Not on filedocumented in this encounter Discontinued Medications Medication Sig Discontinue Reason Start Date End Da te traZODone (DESYREL) 50 mg tablet Take 1 Tablet by mouth at bedtime. Reorder 02/01/2024 02/22/2024 documented as of this encounter Care Teams Beef Splitter Relationship Specialty Start Date End Date Izabella Snowden LICSW 1 [facility], 3rd [place] [phone] Fig Bar Machine Operator 02/21/23 05/03/24 documented as of this encounter
--- OUTSIDE RECORDS SUMMARY | 2024-11-22 16:51 | XMS_ITS | Encounter Summary ---
Author Organization [facility] Address [address] [place] [address] Care Team Providers Care Experimental Box Tester Name Role Phone Emigdio Veronica MD Primary Care Provider + Izabella Snowden [facility] [phone] Reason for Visit * Reason Comments Medication Management Sleep Problems Would like to go kiley k on Trazodone Encounter Details Date Type Department Care Team (Latest Contact Info) Description 02/01/2024 13:00 EDT Office Visit [facility] Adult Primary Care - [place] [address] [place] [address] Emigdio Veronica MD [address] [place] [address] Opioid dependence, uncomplicated (HCC-CMS) (Primary Dx); Encounter for drug screening; Chronic insomnia; Stage 3a chronic kidney disease (HCC-CMS); Other cirrhosis of liver (HCC-CMS); Gastroenteritis; Hypothyroidism, unspecified type; Pancytopenia (HCC-CMS); Hypercoagulable state (HCC-CMS); Healthcare maintenance Social History Tobacco Use Types Packs/Day Years Used Date Smoking Tobacco: Some Days Cigarettes 0.3 35 Smokeless Tobacco: Never Tobacco Cessation:Ready to Q uit: Yes; Counseling Given: Yes Comments:3 cigarettes a day Alcohol Use Standard [...] place to sleep or slept in a intermediate (including now)? 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 file Not on file Not o n file documented as of this encounter Last Filed Vital Signs Vital Sign Reading Time Taken Comments Blood Pressure 130/60 02/01/2024 1247 EDT Pulse 86 02/01/2024 1247 EDT r Temperature 36.3 ??C (97.3 ??F) 02/01/2024 1247 EDT Respiratory Rate 16 02/01/2024 1247 EDT Oxygen Saturation - - Inhaled Oxygen Concentration - - Weight 103 kg (227 lb) 02/01/2024 1247 EDT Height - - Body Mass Index 38.96 09/08/2023 1708 EDT documented in this encounter Functional Status [...] this encounter Patient Instructions * Patient Instructions* Ashley Weems - 02/01/2024 13:00 EDT Quitting smoking Stopping smoking is the best step you can take to improve your own health and lengthen your life. Quitting smoking will lower your risk for heart attacks, lung problems, and many forms of cancer. When you stop smoking, your loved ones will breathe less smoke from the air. That will lower their riskfor asthma, lung infections, heart attacks, and lung cancer. You will also save money, look and smell better, and feel good about what you've done. Many people have quit smoking. The best way to quit is to be clear on your reasons for quitting, set a quit date, use medication, and work with a trained counselor. Tobacco Counseling in [facility] offers free counseling services to residents who are ready to cut back or quit using tobacco. Services include: phone coaching (), online tools and support for those who would like to make changes on their own (www.in2nite), as well as in-person group workshops. Free nicotine replacement therapy is available through all of these resources. To learn more about your options visit www.in2nite or call 7-212-LJAU-NOW ( ). To speak with an in-person tobacco counselor in [facility] call, [phone]. [facility], please visit: [email or web address]/ I hope you quit smoking. I think it's the best thing you can do for your health. Please call our office if you have any questions. documented in this encounter Ordered Prescriptions Prescription Sig Dispense Quantity Refills Last Filled Start Date End Date traZODone (DESYREL) 50 mg tablet Take 1 Tablet by mouth at bedtime. 30 Tablet 1 02/01/2024 02/22/2024 documented in this encounter Progress Notes * Emigdio Veronica III, MD - 02/01/2024 1300 EDT Tara Yun is a 63 y.o. female PRIMARY CARE PROVIDER: Emigdio Veronica III CHIEF COMPLAINT: Chief Complaint Patient presents with Medication Management Sleep Problems Would like to go back on Trazodone History of Present Illness The patient, with a history of chronic pain and sleep disturbances, presents for a routine follow-up for chronic pain. The patient is now on a monthly follow-up plan for chronic pain management afterher last urinary drug screen revealed metabolites of buprenorphine unexpectedly. She concedes to some cannabis use but denies any other illicit substance use. She is currently prescribed oxycodone at 5 mg TID PRN for pain management but reports she has not taken much of the medication this past week due to a recent GI illness. She describes a longstanding struggle with insomnia, with recent episodes of going multiple days without sleep. The patient also reports a recent illness characterized bya stomach bug and generalized aches, which resulted in an inability to keep food or medication downfor the past week. The patient's chronic pain is managed with gabapentin, and she also takes oxycodone as needed. The patient admits to occasional cannabis use for relaxation and sleep. The patient has a history of liver cirrhosis and CKD and is on levothyroxine for thyroid management and injectable enoxaparin for a h istory of hypercoagulable state. The patient also takes furosemide for edema in the setting of her cirrhosis, but she reports that in the setting of her recent GI illness she has been only taking herinjectable enoxaparin over the last few toro. She states has been unable to keep down her medications due to nausea, though this is improving. The patient reports a recent increase in weight and swelling, despite not eating much due to the recent illness. The patient also mentions a persistent cough and has been using an inhaler for relief.Despite these health challenges, the patient maintains an active lifestyle, including regular walkswith her dog. She states that she has been able to keep up with her hydration. ROS as above Medications and history reviewed. Current Outpatient Medications Medication albuterol 90 mcg/actuation [...] SYSTEMS MISC spironolactone (ALDACTONE) 100 mg tablet spironolactone (ALDACTONE) 100 mg tablet sucralfate (CARAFATE) 1 gram tablet traZODone (DESYREL) 50 mg tablet venlafaxine (EFFEXOR-XR) 150 mg XR capsule No current facility-administered medications for this visit. Facility-Administered Medications Ordered in Other Visits Medication Route Frequency albuterol (ACCUNEB) 2.5 mg /3 mL (0.083 %) nebulizer solution OBJECTIVE: BP 130/60 (BP Cuff Location: Left arm, BP Patient Position: Sitting, BP Cuff Sizes: Adult, long) Pulse 86 Comment: r Temp 36.3 ??C (97.3 ??F) (Skin) Resp 16 Wt (!) 103 kg (227 lb) BMI 38.96kg/m?? Physical Exam GENERAL: The patient is well developed, in no acute distress. CARDIOVASCULAR: Heart rate and rhythm are normal. S1 and S2 normal. No murmurs, rubs, or gallops. PULMONARY: Expiratory wheezes appreciated bilaterally, most appreciated in the base. Normal chest excursion, non-labored, and no accessory muscle use. EXTREMITIES: No clubbing, cyanosis, or edema. Recent Labs/Imaging: Reviewed in Epic Assessment & Plan Chronic Pain Syndrome: Ongoing management with Oxycodone. Urine drug screen notable for absence of oxycodone metabolites. Patient claims she has not taken oxycodone over the last few days due to nausea from her GI illness. - Urine sample sent for polysubstance screen at lab, low threshold to send out for confirmation of absence of opiates. This would be the second unexpected finding in a row on the patients urine screens over the last two months. Low threshold to begin tapering plan of oxycodone if irregularities in urine screens persist -For now continue oxycodone at 5 mg TID PRN Insomnia: Chronic issue, exacerbated by recent illness. Previous trial of Doxepin was ineffective. Prior use of Trazodone had some success. -Discontinue Doxepin. -Start Trazodone at 50mg, with potential to increase dose after 2 weeks if needed. -Check in 2 weeks to assess response and adjust dosage if necessary. Gastroenteritis: Recent illness with associated nausea and vomiting now improving though appetite remains decreased. Likely viral in etiology. -Encouraged to maintain hydration and slowly advance diet as tolerated. Hypothyroidism: Patient reports recent disruption of levothyroxine use in the setting of GI illness -Resume Levothyroxine as soon as possible. Liver Cirrhosis: - Hold lasix in setting of poor oral intake. Restart after fluid intake has normalized - Continue to track daily weights Pancytopenia, hypercoagulable state: - Follow-up with hematology - Continue enoxparin. Health Care Maintenance Health Maintenance Topic Date Due Asthma Action Plan Never done Lung Function Test (Spirometry) Never done Copd Action Plan Never done Advance Directive Never done Preventive Care Visit Never done Cervical Cancer Screening Never done Colorectal Cancer Screening Never done Breast Cancer Screening Never done Pill Count Never done Depression Screening 02/25/2024 Social Determinants Of Health (SDOH) 04/29/2024 Prescription Agreement 07/13/2024 Opioid Informed Consent 09/13/2024 Review Of Systems Adverse Effects 09/13/2024 Functional Assessment 09/13/2024 Current Opioid Misuse Measurement 09/13/2024 [place] Prescription Monitoring System 09/14/2024 Urine Drug Screen 01/31/2025 Pneumococcal Immunization (4 of 4 - PPSV23 or PCV20) 2025 Lipid Profile Screening (Cholesterol) 04/16/2027 Tetanus (Adult) Immunization 03/17/2029 RSV Immunization ( or 60+ Years) Completed HIV Screening Completed Shingles Immunization Completed Hepatitis C Screen Completed Influenza Immunization (Adult) Completed COVID-19 Vaccine Completed Pertussis (Adult) Immunization Discontinued F/u: No follow-ups on file. I discussed with Tara Yun the use of this audio recording tool to create a clinical note. I explained the benefits of the technology, such as time savings and a better patient experience. I explained that the recording will be confidential and converted into a written note which I will review and edit as needed before it is saved in the medical record. The patient expressed an understanding of the use of this technology for clinical documentation and agreed to allow its use for this encounter. I spent a total of 39 minutes with this patient today face to face, in chart review and in documentation and 35 minutes of that time was spent on education and counseling for chronic pain syndrome, insomnia, gastroenteritis, hypothyroidism, liver cirrhosis and pancytopenia. Emigdio Veronica III, MD * Ashley Weems - 02/01/2024 1300 EDT Poct urine drug screen done today, see results I was supervised by DR. Veronica who was present and immediately available in the office suite. Ashley Weems 02/01/2024 13:24 documented in this encounter Plan of Treatment Upcoming Encounters Date Type Department Care Team (Late st Contact Info) Description 01/04/2025 13:00 EST Office Visit [facility] Ophthalmology - [address] [phone] Gagandeep Rome MD [address] [place] [address], [facility] [address] [place] [phone] 02/11/2025 13:30 EDT Telemedicine [facility] Hematology & Oncology [address] [phone] Dana Padilla MD [address] [facility], [address] [place] [address] documented as of this encounter Procedures Procedure Name Priority Date/Time Associated Diagnosis Comments POLYSUBSTANCE USE PANEL, URINE Routine 02/01/2024 13:29 EDT Encounter for drug screening Opioid dependence, uncomplicated ([facility]) POCT DRUG SCREEN, URINE Routine 02/01/2024 Encounter for drug screening Opioid dependence, uncomplicated ([facility]) documented in this encounter Results * (ABNORMAL) POLYSUBSTANCE USE PANEL, URINE (02/01/2024 13:29 EDT) Buprenorphine Screen, Urine Negative <5 ng/mL 02/06/2024 15:37 EDT [facility] Oxycodone Screen, Urine Negative <100 ng/mL 02/06/2024 15:37 EDT [facility] Cotinine Screen, Urine Positive(A) <500 ng/mL 02/06/2024 15:37 EDT [facility] Benzodiazepines Screen, Urine Negative <200 ng/mL 02/06/2024 15:37 EDT [facility] Amphetamines Screen, Urine Negative <1000 ng/mL 02/06/2024 15:37 EDT [facility] Cocaine Metabolite Screen, Urine Negative <150 ng/mL 02/06/2024 15:37 EDT [facility] THC Metabolites Screen, Urine Positive(A) <50 ng/mL 02/06/2024 15:37 EDT [facility] Barbiturates Screen, Urine Negative <200 ng/mL 02/06/2024 15:37 EDT [facility] Opiates Screen, Urine Negative <300 ng/mL [facility] Alcohol Metabolite (EtG) Screen, Urine Negative <500 ng/mL 02/06/2024 15:37 EDT [facility] Methadone Screen, Urine Negative <300 ng/mL 02/06[facility]2024 [facility] Fentanyl Screen with Reflex to Confirmation, U Negative <1 ng/mL 02/06/2024 15[facility] Urine URINE / Unknown Urine Collect / Unknown 02/01/2024 13:29 EDT 02/01/2024 13:29 EDT [facility] - 02/06/2024 15:37 EDT Testing performed by: [facility] [address] [place] [address], [facility], [place] [address] Credit Coordinator: Uziel Driscoll MD; CLIA # [id number] us Emigdio Veronica MD GEN LAB UNIT COLLECT ORD ERABLES Final Result [facility] [address] [place] [address], [facility] 2 [place] [address], [facility] [phone] * (ABNORMAL) POCT DRUG SCREEN, URINE (02/01/2024) Temperature, POC 92 ??F 90 - 100 ??F [facility] Creatinine, POC 200 mg/dL 20-200 mg/dL [facility] PO[facility] Specific [place], POC 1.025 1.005 - 1.025 [facility] pH, POC 5.0 4.0 - 9.0 [facility] Amphetamine, POC Negative . [facility] Barbiturates, POC Negative . [facility] Buprenorphine , POC Negative . [facility] Benzodiazapen e, POC Negative . [facility] Cocaine, POC Negative . [facility] P OINT OF CARE MDMA, POC Negative . [facility] Methamphetami ne, POC Negative . [facility] Opiates 300, POC Negative . [facility] Methadone, POC Negative . [facility] Oxycodone, POC Negative . [facility] PCP, POC Negative . [facility] POIN T OF CARE THC, POC Preliminary positive, Result should be confirmed if clinically indicated(A) . [facility] POINT OF CARE Urine URINE / Unknown 02/01/2024 us Emigdio Veronica MD POINT OF CARE TEST ORDER YANN Final Result [facility] POINT [facility] CARE documented in this encounter Visit Diagnoses Diagnosis Opioid dependence, uncomplicated ([facility])- Primary Encounter for drug screening Other specified examination Chronic insomnia Insomnia, unspecified Stage 3a chronic kidney disease ([facility]) Other cirrhosis of liver ([facility]) Gastroenteritis Other and unspecified noninfectious gastroenteritis and colitis Hypothyroidism, unspecified type Pancytopenia ([facility]) Other pancytopenia Hypercoagulable state ([facility]) Primary hypercoagulable state Healthcare maintenance Routine general medical examination at a health care facility documented in this encounter Discontinued Medications Medication Sig Discontinue Reason Start Date End Da te doxepin (SINEQUAN) 10 mg capsule TAKE 1 TO 2 CAPSULES BY MOUTH AT BEDTIME Alternate therapy 08/31/2023 02/01/2024 documented as of this encounter Care Teams Experimental Box Tester Relationship Specialty Start Date End Date Emigdio Veronica MD [address] [place] [address] PCP - General Internal Medicine - Primary Care 05/22/20 02/21/24 Izabella Snowden, DARNELL 1 [facility], [address] [place] [address] Panel Laminator 02/21/23 05/03/24 documented as of this encounter
--- OUTSIDE RECORDS SUMMARY | 2024-11-22 16:51 | XMS_ITS | Encounter Summary ---
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 Offered patient alternative time of Tuesday02/14/24 at 11am PLAN: CM needs to cancel upcoming care management appt on 01/26/24-offered alternative time of 02/14/24 at 11am. Awaiting confirmation from patient. DARNELL MCCORMICK 01/20/2024 11:51 documented in this encounter Plan of Treatment Upcoming Encounters Date Type Department Care Team (Late st Contact Info) Description 01/04/2025 13:00 EST Office Visit [facility] Ophthalmology - [address] [id number] Gagandeep Rome MD [address] [place] [address], [address] [place] [phone] 02/11/2025 13:30 EDT Telemedicine [facility] Hematology & Oncology [address] [phone] Dana Padilla MD 111 [facility], [facility], [address] [place] [address] documented as of this encounter Visit Diagnoses Not on filedocumented in this encounter Care Teams Motor Builder Winder Relationship Specialty Start Date End Date Emigdio Veronica MD [address] [place] [address] PCP - General Internal Medicine - Primary Care 05/22/20 02/21/24 Izabella Snowden, [facility] 1 [facility], [address] [place] [address] Nuclear Medicine Physician 02/21/23 05/03/24 documented as of this encounter
--- OUTSIDE RECORDS SUMMARY | 2024-11-22 16:51 | XMS_ITS | Encounter Summary ---
Author Organization [facility] Address [address] [place] [address] Care Team Providers Care Process Improvement Engineer Name Role Phone Emigdio Veronica MD Primary Care Provider + Izabella Snowden [facility] [phone] Reason for Visit * Reason Comments Medications Refill Encounter Details Date Type Department Care Team (Late st Contact Info) Description 12/17/2023 Refill [facility] Adult Primary Care - [place] [address] [place] [address] Emigdio Veronica MD [address] [place] [address] Medications Refill Social History Tobacco [...] 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 [facility] Request Patient out of medication? Unknown How many pills does patient have left? unknown Last Refill Date: 04/26/2023 Refills left? (explain exceptions requiring early refill) No Recent Visits Date Type Provider Dept 11/17/23 Office Visit Emigdio Veronica III, MD [facility] Adult Prim Care 09/21/23 Office Visit Emigdio Veronica III, MD [facility] Adult Prim Care 09/13/23 Office Visit Emigdio Veronica III, MD [facility] Adult Prim Care 09/07/23 Office Visit Scottie Campuzano PA-C [facility] Adult Prim Care 08/25/23 Office Visit Ruth Ortez MD PhD [facility] Adult Prim Care 07/13/23 Office Visit Emigdio Veronica III, MD [facility] [place] Adult Prim Care 06/29/23 Office Visit Scottie Campuzano PA-C [facility] [place] Adult Prim Care 06/10/23 Office Visit Emigdio Veronica III, MD [facility] [place] Adult Prim Care 05/26/23 Office Visit Scottie Campuzano PA-C [facility] [place] Adult Prim Care 05/05/23 Office Visit Emigdio Veronica III, MD [facility] Adult Prim Care Showing recent visits within past 540 days with a meds authorizing provider and meeting all other requirements Future Appointments Date Type Provider Dept 12/21/23 Appointment Emigdio Veronica III, MD [facility] Adult Prim Care Showing future appointments within next 150 days with a meds authorizing provider and meeting all other requirements Future appointment: Already Scheduled ZAIDA ADLER RN 12/19/2023 8:45 documented in this encounter Plan of Treatment Upcoming Encounters Date Type Department Care Team (Late st Contact Info) Description 01/04/2025 13:00 EST Office Visit [facility] Ophthalmology - [address] [phone] Gagandeep Rome MD [address] [place] [address], [facility] 5 [place] [phone] 02/11/2025 13:30 EDT Telemedicine [facility] Hematology & Oncology [address] [id number] Dana Padilla MD [address] [place] [address], [facility] 2 [place] [address] documented as of this encounter Visit Diagnoses Not on filedocumented in this encounter Discontinued Medications Medication Sig Discontinue Reason Start Date End Da te levothyroxine (SYNTHROID) 25 mcg tablet TAKE 1 TABLET BY MOUTH EVERY DAY 04/26/2023 12/19/2023 documented as of this encounter Care Teams Process Improvement Engineer Relationship Specialty Start Date End Date Emigdio Veronica MD [address] [place] [address] PCP - General Internal Medicine - Primary Care 05/22/20 02/21/24 Izabella Snowden, [facility] 1 [facility], [address]rd [place] [address] Trim Carpenter 02/21/23 05/03/24 documented as of this encounter
--- OUTSIDE RECORDS SUMMARY | 2024-11-22 16:51 | XMS_ITS | Encounter Summary ---
Author Organization Health system Address [address] [place] [address] Care Team Providers Care Implementation Project Coordinator Name Role Phone Emigdio Veronica MD Primary Care Provider + Izabella Snowden [facility] Unavailable None, Provider Primary Care Provider Gabriel Wei Primary Care Provider Mirna Guerrero Primary Care Provider + Reason for Referral * Consult (Urgent) - Authorization Not Required Specialty Diagnoses / Procedures Referred By Contac t Referred To Contact Orthopedic Surgery Diagnoses Other closed intra-articular fracture of distal end of left radius with routine healing, subsequent encounter Emigdio Veronica MD [address] [place] [phone] Phone: tel: fax: [facility] [place] [address] Phone: tel: fax: Referral ID Status Reason Start Date Expiration Date Visits Requested Visits Authorized [id number] Authorization Not Required Specialty Services Required 02/23/2024 1 1 Question Answer Reason for Request: Left distal radius fracture. Closed and displaced. 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 She should at this point follow-up with her new PCP on this issue and her chronic health concerns. Happy to be of help. * Telephone Encounter - Sharon Joseph RN - 02/22/2024 1641 EDT Pt states that she is established with the primary care closer to her location . She is already getting her controlled medications. She only needs the referral if possible and thanks you for everything you have done for her. Please sign referral * Telephone Encounter - Emigdio Veronica MD - 02/22/2024 1607 EDT Notes reviewed. I would clarify if she requires a referral to [facility] orthopedics. It does not appearthat a referral was placed in the ortho notes for her left distal radius fracture. I have pended the referral in case she requires it. Has she established care with her new PCP office yet? There seems to be a misunderstanding that we will continue to manage her chronic pain syndrome after this occurs. That is not true. Her primary care services including her chronic pain syndrome should be managed by one office. Given her new location it makes perfect sense for this to be a local provider in the [facility] or [place]. We can discuss further at our upcoming visit and we can cover refills of her chronic pain medicine until sheestablishes with her new practice. * Telephone Encounter - Cris Nunez - 02/22/2024 1137 EDT Notes scanned in and put in provider box * Telephone Encounter - Sharon Joseph RN - 02/22/2024 1018 EDT No medical records in scans as of 02/22/2024 at 1019 am * Telephone Encounter - Tiny Moss - 02/21/2024 1625 EDT Reason for Call: Fall Summary/Symptoms: Pt fell on 02-13-24 and broke her arm in 3 places. Pt has moved 3 hrs away and is transiting to another PCP but still using [facility]. Pt went to ED and they scheduled her with Ortho. Pt went to Ortho in [facility]. Ortho Dr.Michael Fountain told pt since she's on blood thinner she needs to go to [facility] for surgery on her arm, they are to small of a facility to handle. Ortho will Fax info tomorrow. Onset and Duration: 7 days documented in this encounter Plan of Treatment Upcoming Encounters Date Type Department Care Team (Late st Contact Info) Description 01/04/2025 13:00 EST Office Visit [facility] Ophthalmology - [address] [phone] Gagandeep Rome MD [address] [place] [address], [facility] [address] [place] [phone] 02/11/2025 13:[address] [facility] Hematology & Oncology - [address] [phone] Dana Padilla MD [address] [place] [address], [facility] [address] [place] [phone] Scheduled Referrals Name Type Priority Associated Diagnoses Order Schedule AMB CONS/FOLLOW UP ORTHOPEDICS - [facility] Outpatient Referral Urgent Other closed intra-articular fracture of distal end of left radius with routine healing, subsequent encounter Expected: 02/24/2024 (Approximate), Expires: 02/21/2025 documented as of this encounter Visit Diagnoses Diagnosis Other closed intra-articular fracture of distal end of left radius with routine healing, subsequent encounter- Primary documented in this encounter Care Teams Implementation Project Coordinator Relationship Specialty Start Date End Date Emigdio Veroinca MD [address] [place] [phone] PCP - General Internal Medicine - Primary Care 05/22/20 02/21/24 None, Provider PCP - General 02/24/24 03/18/24 Gabriel Gandara PA PCP - General 03/19/24 09/11/24 Mirna Guerrero PA [address] [place] [address] PCP - General 09/12/24 Izablela Snowden, [facility] [address] [place] [phone] Model Set Artist 02/21/23 05/03/24 documented as of this encounter
--- OUTSIDE RECORDS SUMMARY | 2024-11-22 16:51 | XMS_ITS | Encounter Summary ---
Author Organization [facility] Address [address] [place] [address] Care Team Providers Care Glass Lined Tank Repairer Name Role Phone Emigdio Veronica MD Primary Care Provider + Izablela Snowden [facility] None, Provider Primary Care Provider Gabriel Wei Primary Care Provider [phone] Mirna Guerrero Primary Care Provider + Reason for Visit * Reason Onset Date Comments Orders (Non Pre-visit) 12/29/2023 Oxygen Encounter Details Date Type Department Care Team (Late st Contact Info) Description 12/29/2023 Telephone [facility] Adult Primary [facility] - [place] [address] [place] [address] Emigdio Veronica MD [address] [place] [phone] Orders (Non Pre-visit) (Oxygen) Social History Tobacco Use Types Packs/Day Years [...] 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 Patient called [facility] this morning and they will need a new order for her oxygen. She has been out for a bit and said the last couple of nights have been a little tough. Onset and Duration: Ongoing Previously seen at/discussed with this office for issue: Yes Does the patient have a computer, laptop or smart phone with high speed & video capability? N/A If so, would they be interested in doing a video visit via [employer]? N/A Appointment Offered? No Sally Jorge 12/29/2023 10:40 documented in this encounter Plan of Treatment Upcoming Encounters Date Type Department Care Team (Late st Contact Info) Description 01/04/2025 13:00 EST Office Visit [facility] Ophthalmology - [address] [phone] Gagandeep Rome MD [address] [place] [address] 5 [place] [phone] 02/11/2025 13:30 EDT Telemedicine [facility] Hematology & Oncology [address] [phone] Dana Padilla MD [address] [place] [address], [facility] 2 [place] [phone] documented as of this encounter Visit Diagnoses Diagnosis Chronic respiratory failure with hypoxia (HCC-CMS)- Primary Chronic respiratory failure documented in this encounter Orders Equipment Count Last Ordered Date First Orde red Date HOME OXYGEN 1 12/29/2023 documented in this encounter Care Teams Glass Lined Tank Repairer Relationship Specialty Start Date End Date Emigdio Veronica MD [address] [place] [phone] PCP - General Internal Medicine - Primary Care 05/22/20 02/21/24 None, Provider PCP - General 02/24/24 03/18/24 Gabriel Gandara PA PCP - General 03/19/24 09/11/24 [place] [address] PCP - General 09/12/24 Izabella Snowden, DARNELL 1 [facility], [address] [place] [phone] Yarn Rewinder 02/21/23 05/03/24 documented as of this encounter
--- OUTSIDE RECORDS SUMMARY | 2024-11-22 16:51 | XMS_ITS | Encounter Summary ---
Author Organization 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 Not on [...] Info) Description 01/04/2025 13:00 EST Office Visit [facility] Ophthalmology - [address] [phone] Gagandeep Rome MD [address] [place] [address], [facility] [address] [place] [phone] 02/11/2025 13:30 EDT Telemedicine [facility] Hematology & Oncology - [address] [phone] Dana Padilla MD [address] [place] [address], [facility] [address] [place] [phone] documented as of this encounter Visit Diagnoses Diagnosis Positive urine drug screen- Primary Nonspecific abnormal toxicological findings documented in this encounter Care Teams Bi Analyst Relationship Specialty Start Date End Date Emigdio Veronica MD [address] [place] [phone] PCP - General Internal Medicine - Primary Care 05/22/20 02/21/24 Izabella Snowden, FRONT OFFICE JAVA DEVELOPER 1 [facility], [address] [place] [phone] Street Contractor 02/21/23 05/03/24 documented as of this encounter
--- OUTSIDE RECORDS SUMMARY | 2024-11-22 16:51 | XMS_ITS | Encounter Summary ---
Author Organization [facility] Address [address] [place] [address] Care Team Providers Care Management Internship Name Role Phone Emigdio Veronica MD Primary Care Provider + Izabella Snowden [facility] Unavailable [phone] Reason for Visit * Reason Comments Medication Management Medications Refill Lidocaine patch 5% Encounter Details Date Type Department Care Team (Late st Contact Info) Description 12/21/2023 15:45 EST Office Visit [facility] Adult Primary Care - [place] [address] [place], [place] [id number] Emigdio Veronica MD [address] [place] [address] Opiate use (Primary Dx); Chronic pain syndrome; Stage 3a chronic kidney disease ([facility]); Healthcare maintenance; Positive urine drug screen Social History Tobacco Use Types Packs/Day Years Used Date Smoking Tobacco: Every Day Cigarettes 0.3 35 Smokeless Tobacco: Never Tobacco Cessation:Ready to Q uit: No; Counseling Given: Yes Comments:3 cigarettes a day [...] 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 Not on file Not o n file documented as of this encounter Last Filed Vital Signs Vital Sign Reading Time Taken Comments Blood Pressure 119/58 12/21/2023 1551 EST Pulse 87 12/21/2023 1551 EST Temperature 35.7 ??C (96.2 ??F) 12/21/2023 1551 EST Respiratory Rate 16 12/21/2023 1551 EST Oxygen Saturation - - Inhaled Oxygen Concentration - - Weight 107 kg (236 lb) 12/21/2023 1551 EST Height - - Body Mass Index 40.51 09/08/2023 1708 EDT documented in this encounter [...] Instructions * Patient Instructions* Ashley Weems - 12/21/2023 15:45 EST Quitting smoking Stopping smoking is the best [...] with a trained counselor. Tobacco Counseling in [facility] offers free counseling services to residents who are ready to cut back or quit using tobacco. Services include: phone coaching (), online tools and support for those who would like to make changes on their own (www.[employer]), as well as in-person group workshops. Free nicotine replacement therapy is available through all of these resources. To learn more about your options visit www.[employer] or call - ( ). To speak with an in-person tobacco counselor in [facility] call, [phone]. [place] Resident, please visit: https://www.The Library/ I hope you quit smoking. I think it's the best thing you can do for your health. Please call our office if you have any questions. documented in this encounter Ordered Prescriptions Prescription Sig Dispense Quantity Refills Last Filled Start Date End Date lidocaine 5 % (LIDODERM) 5 % patch Place 1 Patch onto the skin daily. Remove after 12 hours 30 Patch 1 12/21/2023 sucralfate (CARAFATE) 1 gram tablet Take 1 Tablet by mouth 4 times daily. 120 Tablet 3 12/21/2023 documented in this encounter Progress Notes * Emigdio Veronica III, MD - 12/21/2023 2550 EST Tara Yun is a 63 y.o. female with a PMHx of chronic pain syndrome, CKD stage IIIa, NAFLD PRIMARY CARE PROVIDER: Emigdio Veronica III CHIEF COMPLAINT: Chief Complaint Patient presents with Medication Management Medications Refill Lidocaine patch 5% SUBJECTIVE: Tara Yun presents today for a follow-up visit for chronic pain syndrome, chronic kidney disease, NAFLD. She reports increased lower back pain at this encounter. She states that she recently fell in her current [place] apartment after tripping over some sheets. She denies any head trauma and cannot recall how she fell. She states that since the fall she has experienced increased pain in her lower back with spinal flexion and extension. She denies any changes to sensation. She is interested in restarting lidocaine patches for her discomfort. She states that she had previously been prescribed 5% lidocaine patches that were effective in managing her lower back pain in addition to her other pain medications. She is moving out of [place] and into an apartment in [place], [place] in the [facility]. She is working on securing a ride service similar to [employer] in this [facility] to bring her to her appointments. She again reiterates her intention to keep her primary care services with our office in [facility] despite closer options potentially being available in [place]. Will likely be a 3-hour plus d rive to reach our office from her new home. We discussed that legally we would have to see each other at least every 3 months for ongoing management of her opiate therapy. She is due for a urine drug screen today as part of her opiate therapy monitoring. She states that she may have consumed an unknown sleeping pill from her friend over the last few days. She states that she has been compliant with her previously prescribed doxepin but took a trazodone from a friend when her recent back pain prevented her from falling asleep. She states she took it out of desperation and understands that she is not supposed to take medications that are not prescribed by her clinicians. Reviewed her most recent laboratory results which reflect a rise in her serum creatinine to 1.28 with a corresponding GFR down to 47. She notes over the last few days she is dose reduced her furosemide from 60 mg to 40 mg daily. Unfortunately she has also noticed that her weights have increased by several pounds since making this dosing switch. ROS as above Medications and history reviewed. Current Outpatient Medications Medication albuterol 90 mcg/actuation inhaler diclofenac sodium gel doxepin (SINEQUAN) 10 mg capsule enoxaparin (LOVENOX) 60 mg/0.6 mL injection fluticasone [...] mg tablet sucralfate (CARAFATE) 1 gram tablet venlafaxine (EFFEXOR-XR) 150 mg XR capsule No current facility-administered medications for this visit. Facility-Administered Medications Ordered in Other Visits Medication Route Frequency albuterol (ACCUNEB) 2.5 mg /3 mL (0.083 %) nebulizer solution OBJECTIVE: BP 119/58 (BP Cuff Location: Left arm, BP Patient Position: Sitting, BP Cuff Sizes: Adult, large) Pulse 87 Temp 35.7 ??C (96.2 ??F) (Skin) Resp 16 Wt (!) 107 kg (236 lb) BMI 40.51 kg/m?? Gen: Well appearing female, NAD HEENT: EOMI, PERRL, oropharynx moist, conjunctiva pink, no scleral injection/ icterus Neck: no cervical lymphadenopathy, thyroid exam WNL Extrem: no edema Skin: No rashes or erythema, intact Neuro: A&Ox3, CN II through XII grossly intact Recent Labs/Imaging: Reviewed in Epic ASSESSMENT and PLAN: Tara was seen today for medication management and medications refill. Diagnoses and all orders for this visit: Opiate use, Chronic pain syndrome: Patient affirms increased lower back pain related to a recent fall in her bedroom. She denies any significant trauma from the fall but reports that her chronic lower back pain has been exacerbated. She is interested in restarting 5% lidocaine patches for additional pain relief. She is due for a urine drug screen today related to her chronic use of opiates. - POCT DRUG SCREEN, URINE notable for oxycodone metabolites as expected as well as buprenorphine metabolites which were not expected. Will send out urine sample for a polysubstance use panel for confirmation of these findings. - lidocaine 5 % (LIDODERM) 5 % patch; Place 1 Patch onto the skin daily. Remove after 12 hours -For now continue oxycodone and gabapentin as prescribed -Will plan for 84-day follow-ups for chronic pain management in person at our office assuming the patients confirmatory UDS returns as expected. Advised patient [facility] [place] [facility] provider in the near future. Stage 3a chronic kidney disease ([facility]): Creatinine uptrending to 1.28 and likely related to overdiuresis. Patient confirms that she is already dose reduced her furosemide over the last few days but unfortunately has noticed an increase in her weight. -Continue furosemide 40 mg daily -Continue daily weights -Should weights continue to climb another 2 to 4 pounds would have a low threshold to initiate an alternating furosemide dosage of 60 and 40 mg daily every other day. -Will repeat BMP in 2 to 3 weeks. Will attempt to fax this order to the near by [facility] in [place], [place] Other orders - sucralfate (CARAFATE) 1 gram tablet; Take 1 Tablet by mouth 4 times daily. Health Care Maintenance Health Maintenance Topic Date [...] Assessment 09/13/2024 Current Opioid Misuse Measurement 09/13/2024 [place] Prescription Monitoring System 09/14/2024 Urine Drug Screen 12/21/2024 Pneumococcal Immunization (4 - PPSV23 or PCV20) 2025 Lipid Profile Screening (Cholesterol) 04/16/2027 Tetanus (Adult) Immunization 03/17/2029 RSV Immunization (60+ Years) Completed HIV Screening Completed Shingles Immunization Completed Hepatitis C Screen Completed Influenza Immunization (Adult) Completed COVID-19 Vaccine Completed Pertussis (Adult) Immunization Discontinued F/u: Return in about 3 months (around 03/20/2024). I spent a total of 38 minutes with this patient today face to face, in chart review and in documentation and 32 minutes of that time was spent on education and counseling for opiate use, chronic painsyndrome, CKD stage 3a, healthcare maintenance. Some of this note was transcribed with [employer] dictating software. While it was proofread, it may still contain unnoticed grammatical or word errors due to incorrect transcribing. Emigdio Veronica III, MD 12/23/2023 11:22 * Ashley Weems - 12/21/2023 1545 EST POCT urine drug screen done today I was supervised by DR. Veronica who was present and immediately available in the office suite. Ashley Weems 12/21/2023 17:09 documented in this encounter Plan of Treatment Upcoming Encounters Date Type Department Care Team (Late st Contact Info) Description 01/04/2025 13:00 EST Office Visit [facility] Ophthalmology - [address] [phone] Gagandeep Rome MD [address] [place] [address], [facility] [address] [place] [address] 02/11/2025 13:30 EDT Telemedicine [facility] Hematology & Oncology - [address] [phone] Dana Padilla MD [address] [place] [address], [facility] 2 [place] [phone] documented as of this encounter Procedures Procedure Name Priority Date/Time Associated Diagnosis Comments POLYSUBSTANCE USE PANEL, URINE Routine 12/21/2023 16:51 EST Opiate use Chronic pain syndrome BUPRENORPHINE AND METABOLITE CONFIRMATION PANEL Routine 12/21/2023 16:51 EST Positive urine drug screen POCT DRUG SCREEN, URINE Routine 12/21/2023 Opiate use Chronic pain syndrome documented in this encounter Results * (ABNORMAL) BUPRENORPHINE AND METABOLITE CONFIRMATION PANEL (12/21/2023 16:51 EST) Buprenorphine Confirmation 96(A) <10 ng/mL 01/05/2024 12:08 EST [facility] Norbuprenorphine Confirmation 77(A) <10 ng/mL 01/05/2024 12:08 EST [facility] Naloxone Confirmation Negative <10 ng/mL 01/05/2024 12:08 EST [facility] Urine URINE / Unknown Urine Collect / Unknown 12/21/2023 16:51 EST 12/21/2023 16:51 EST Narrative [facility] - 01/05/2024 12:08 EST Testing performed by: [facility] [address] [place] [address], [address], [place] [address] Time Clock Repairer: Uziel Driscoll MD; CLIA # [id number] Emigdio Veronica MD GEN LAB UNIT COLLECT ORD ERABLES Final Result [facility] [address] [place] [address], [facility] [address] [phone] * (ABNORMAL) POLYSUBSTANCE USE PANEL, URINE (12/21/2023 16:51 EST) Buprenorphine Screen, Urine Positive(A) <5 ng/mL 12/23/2023 12:58 EST [facility] Oxycodone Screen, Urine Positive(A) <100 ng/mL 12/23/2023 12:58 [facility] Cotinine Screen, Urine Positive(A) <500 ng/mL 12/23/2023 12:58 [facility] Benzodiazepines Screen, Urine Negative <200 ng/mL 12/23/2023 12:58 EST [facility] Amphetamines Screen, Urine Negative <1000 ng/mL 12/23/2023 12:58 [facility] Cocaine Metabolite Screen, Urine Negative <150 ng/mL 12/23/2023 12:58 EST [facility] THC Metabolites Screen, Urine Negative <50 ng/mL 12/23/2023 12:58 EST [facility] Barbiturates Screen, Urine Negative <200 ng/mL 12/23/2023 12:58 EST [facility] Opiates Screen, Urine Negative <300 ng/mL 12/23/2023 12:58 EST [facility] Alcohol Metabolite (EtG) Screen, Urine Negative <500 ng/mL 12/23/2023 12:58 EST [facility] Methadone Screen, Urine Negative <300 ng/mL 12/23/2023 12:58 EST [facility] Fentanyl Screen with Reflex to Confirmation, U Negative <1 ng/mL 12/23/2023 12:58 EST [facility] Urine URINE / Unknown Urine Collect / Unknown 12/21/2023 16:51 EST 12/21/2023 16:51 EST Narrative [facility] - 12/23/2023 12:58 EST Testing performed by: [facility] [address] [place] [address], [address] [address] Time Clock Repairer: Uziel Driscoll MD; CLIA # [id number] Emigdio Veronica MD GEN LAB UNIT COLLECT ORD ERABLES Final Result Performing Organization Address City/State/[facility] Co de Phone Number [facility] [address] [place] [address], [facility] 2 [place] [address], [facility] [phone] * (ABNORMAL) POCT DRUG SCREEN, URINE (12/21/2023) Temperature, POC 94 ??F 90 - 100 ??F [facility] C[facility] Creatinine, POC 100 mg/dL 20-200 mg/dL [facility] Specific [place], POC 1.025 1.005 - 1.025 [facility] pH, POC 5.0 4.0 - 9.0 [facility] Amphetamine, POC Negative . [facility] Barbiturates, POC Negative . [facility] Buprenorphine , POC Preliminary positive, Result should be confirmed if clinically indicated(A) . [facility] Benzodiazapen e, POC Negative . [facility] Cocaine, POC Negative . [facility] P OINT OF CARE MDMA, POC Negative . [facility] T [facility] Methamphetami ne, POC Negative . [facility] Opiates 300, POC Preliminary positive, Result should be confirmed if clinically indicated(A) . [facility] Methadone, POC Negative . [facility] Oxycodone, POC Preliminary positive, Result should be confirmed if clinically indicated(A) . [facility] PCP, POC Negative . [facility] THC, POC Negative . [facility] C[facility] Urine URINE / Unknown 12/21/2023 Emigdio Veronica MD POINT OF CARE TEST ORDER YANN Final Result [facility] documented in this encounter Visit Diagnoses Diagnosis Opiate use- Primary Opioid abuse, unspecified Chronic pain syndrome Stage 3a chronic kidney disease ([facility]) Healthcare maintenance Routine general medical examination at a health care facility Positive urine drug screen Nonspecific abnormal toxicological findings documented in this encounter Discontinued Medications Medication Sig Discontinue Reason Start Date End Da te lidocaine 5 % (LIDODERM) 5 % patch Place 1 Patch onto the skin daily. Duplicate order 12/21/2023 sucralfate (CARAFATE) 1 gram tablet TAKE 1 TABLET BY MOUTH FOUR TIMES A DAY Reorder 05/10/2022 12/21/2023 documented as of this encounter Historical Medications * This list may reflect changes made after this encounter. lidocaine 5 % (LIDODERM) 5 % patch Place 1 Patch onto the skin daily. 12/21/2023 added in this encounter Care Teams Management Internship Relationship Specialty Start Date End Date Emigdio Veronica MD [address] [place] [phone] PCP - General Internal Medicine - Primary Care 05/22/20 02/21/24 Izabella Snowden, MACHINE ETCHER [facility] [address] [place] [address] Hyster Machine Operator 02/21/23 05/03/24 documented as of this encounter
--- OUTSIDE RECORDS SUMMARY | 2024-11-22 16:51 | XMS_ITS | Encounter Summary ---
Author Organization [facility] Address [address] [place] [address] Care Team Providers Care Sprayer Machine Name Role Phone Emigdio Veronica MD Primary Care Provider + Nancy Go 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 Not on file [...] documented in this encounter Progress Notes * Nancy Go LICSW - 02/14/2024 1108 EDT P[facility] Flaring Machine Operator Care Coordination Flaring Machine Operator phone outreach to patient-no answer, LVM for patient PLAN: LVM for patient NANCY DARNELL GO 02/14/2024 11:09 documented in this encounter Plan of Treatment Upcoming Encounters Date Type Department Care Team (Late st Contact Info) Description 01/04/2025 13:00 EST Office Visit [facility] Ophthalmology - [address] [phone] Gagandeep Rome MD [address] [place] [address], [facility] 5 [place] [address] 02/11/2025 13:30 EDT Telemedicine [facility] Hematology & Oncology [address] [address] Dana Padilla MD [address] [place] [address], [facility] 2 [place] [address] documented as of this encounter Visit Diagnoses Not on filedocumented in this encounter Care Teams Sprayer Machine Relationship Specialty Start Date End Date Emigdio Veronica MD [address] [place] [phone] PCP - General Internal Medicine - Primary Care 05/22/20 02/21/24 None, Provider PCP - General 02/24/24 03/18/24 Gabriel Gandara PA PCP - General 03/19/24 09/11/24 Nancy Go LICSW 1 [facility], [address] [place] [address] Flaring Machine Operator 02/21/23 05/03/24 documented as of this encounter
--- OUTSIDE RECORDS SUMMARY | 2024-11-22 16:51 | XMS_ITS | Encounter Summary ---
Author Organization [facility] Address [address] [place] [address] Care Team Providers Care Marine Steamfitter Name Role Phone Izabella Snowden EXHIBITION CARVER Unavailable [phone] None, Provider Primary Care Provider Unavailabl e Reason for Visit * Reason Onset Date Comments Other 02/28/2024 Transportation Encounter Details Date Type Department Care Team (Late st Contact Info) Description 02/28/2024 Telephone [facility] Adult Primary Care - [place] [address] [place] [address] None, Provider Other (Transportation) Social History Tobacco Use Types Packs/Day Years [...] 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 The patient and/or family indicates understanding of these issues and agrees with the plan. No barriers. Reviewed with patient Dr Veronica is no longer PCP and advised she can bring other requests to her current PCP. * Telephone Encounter - Emigdio Veronica MD - 02/28/2024 1406 EDT Completed. Returned to triage * Telephone Encounter - Karol Hoff RN - 02/28/2024 1006 EDT Form in former PCP's inbox as discussed with Dr Veronica * Telephone Encounter - Karol Hoff RN - 02/28/2024 0919 EDT Sent patient my chart message with link to Physician Referral Form * Telephone Encounter - Sal Cynthia - 02/28/2024 0904 EDT Pt has an appointment at [facility] tomorrow for Ortho and needs a special form filled out [place] than [place]. Pt states Hazel doesn't know what she's talking about and so she would like usto fill this form out so she can go to her appointment tomorrow. Medicaid rides. Would like it to say URGENT so it can be processed immediately. documented in this encounter Plan of Treatment Upcoming Encounters Date Type Department Care Team (Late st Contact Info) Description 01/04/2025 13:00 EST Office Visit [facility] Ophthalmology - [address] [phone] Gagandeep Rome MD [address] [place] [address], [facility] 5 [place] [phone] 02/11/2025 13:30 EDT Telemedicine [facility] Hematology & Oncology - [address] [phone] Dana Padilla MD [address] [place] [address], [facility] 2 [place] [address] documented as of this encounter Visit Diagnoses Not on filedocumented in this encounter Care Teams Marine Steamfitter Relationship Specialty Start Date End Date None, Provider PCP - General 02/24/24 03/18/24 Izabella Snowden LICSW 1 [facility], [address] [place] [address] Resource Management Specialist 02/21/23 05/03/24 documented as of this encounter
--- OUTSIDE RECORDS SUMMARY | 2024-11-22 16:51 | XMS_ITS | Encounter Summary ---
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 TOPIC OF CONVERSATION: Reviewed assessment and plan from previous visit with patient. Engaged patient in conversation related to positive behavior change, self- management, goal setting and action planning using motivational interviewing and active listening. Patient is settling into her new apartment in [place], [place] She is loving her new community-walking distance to [employer] and [employer]- she has met neighbors and has been going for walks 5 miles. Patient continues to look at establishing a provider in that area-she has reached out to [facility]-her previous provider there is not taking new patients-but she could establish with one of the PA's. Also she plans to reach out to [facility] in [place] as well. Patient still wants to continue seeing Dr. Veronica for Opioid prescription-she has arranged for [employer]-discussed the possibility of finding a prescriber closer to her new community as another possible option as that might things easier if she is closer to her prescriber and pharmacy. She reports that at her last visit with Dr. Veronica she disclosed that she had taken a sleeping pill not prescribed to her. Reiterated the importance of not taking medications not prescribed to her. Will need to follow up with dr. Veronica in 84 days for opiate therapy monitoring. Scheduled with on 03/07/24 at 1pm. Medication reviewed: No new needs identified Social determinants of health needs reviewed: No new needs identified Gaps in community resources: No new needs identified Education provided on condition and/or disease: no Prioritized Patient Identified Goals: Patient will contact [facility] within the next month to arrange for Transportation. Achievement towards goals: Completed 2. Patient will contact [facility] within the next month to establish care. Achievement towards goals: In progress Plan: CM will follow-up on 01/26/24 at 1pm DARNELL MCCORMICK 12/30/2023 10:57 documented in this encounter Plan of Treatment Upcoming Encounters Date Type Department Care Team (Late st Contact Info) Description 01/04/2025 13:00 EST Office Visit [facility] Ophthalmology - [address] [phone] Gagandeep Rome MD [address] [place] [address] 5 [place] [phone] 02/11/2025 13:30 EDT Telemedicine [facility] Hematology & Oncology - [address] [phone] Dana Padilla MD [address] [place] [address], [facility] 2 [place] [phone] documented as of this encounter Visit Diagnoses Not on filedocumented in this encounter Care Teams Legal Word Processor Relationship Specialty Start Date End Date Emigdio Veronica MD 2 [place] [phone] PCP - General Internal Medicine - Primary Care 05/22/20 02/21/24 Izabella Snowden LICSW 1 [facility], 3rd [place] [phone] Alterations Workroom Clerk 02/21/23 05/03/24 documented as of this encounter
--- OUTSIDE RECORDS SUMMARY | 2024-11-22 16:51 | XMS_ITS | Encounter Summary ---
Author Organization [facility] Address [address] [place] [address] Care Team Providers Care Mincemeat Maker Name Role Phone Emigdio Veronica MD Primary Care Provider + Izabella Snowden [facility] None, Provider Primary Care Provider Gabriel Wei Primary Care Provider Mirna Guerrero Primary Care Provider + Reason for Visit * Reason Onset Date Comments Appointment Related 12/16/2023 Encounter Details Date Type Department Care Team (Late st Contact Info) Description 12/16/2023 Telephone [facility] Adult Primary Care - [place] 2 [place] [address] Emigdio Veronica MD 2 [place] [address] Appointment Related Social History Tobacco Use Types [...] 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 documented in this encounter Plan of Treatment Upcoming Encounters Date Type Department Care Team (Late st Contact Info) Description 01/04/2025 13:00 EST Office Visit [facility] Ophthalmology - [address] [phone] Gagandeep Rome MD [address] [place] [address] 5 [place] [phone] 02/11/2025 13:30 EDT Telemedicine [facility] Hematology & Oncology - [address] [phone] Dana Padilla MD [address] [place] [address], Level [address] [place] [phone] documented as of this encounter Visit Diagnoses Not on filedocumented in this encounter Care Teams Mincemeat Maker Relationship Specialty Start Date End Date Emigdio Veronica MD 2 [place] [phone] PCP - General Internal Medicine - Primary Care 05/22/20 02/21/24 None, Provider PCP - General 02/24/24 03/18/24 Gabriel Gandara PA PCP - General 03/19/24 09/11/24 Mirna Guerrero PA [address] [place] [address] PCP - General 09/12/24 Izabella Snowden, [facility] 1 [facility], 3rd [place] [address] Medical Assistant Float 02/21/23 05/03/24 documented as of this encounter
--- OUTSIDE RECORDS SUMMARY | 2024-11-22 16:51 | XMS_ITS | Encounter Summary ---
Author Organization [facility] Address [address] [place] [address] Care Team Providers Care Peel Oven Tender Name Role Phone Izabella Snowden ADMINISTRATIVE ASSISTANT FRONT DESK Unavailable [phone] None, Provider Primary Care Provider Unavailabl e Reason for Visit * Reason Onset Date Comments Appointment Related 02/28/2024 Encounter Details Date Type Department Care Team (Late st Contact Info) Description 02/28/2024 Telephone [facility] Hand & Upper Extremity Program - [address] [address] Riky Butts MD [address] [place] [phone] Appointment Related Social History Tobacco Use [...] 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 Patient confirmed information. Form has been faxed. Patient was pleased with this plan. All questions have been answered. ELROY VALDES MA 02/28/24 9:33 documented in this encounter Plan of Treatment Upcoming Encounters Date Type Department Care Team (Late st Contact Info) Description 01/04/2025 13:00 EST Office Visit [facility] Ophthalmology - [address] [phone] Gagandeep Rome MD [address] [place] [address], [facility] 5 [place] [phone] 02/11/2025 13:30 EDT Telemedicine [facility] Hematology & Oncology - [address] [phone] Dana Padilla MD [address] [place] [address], Level [address] [place] [phone] documented as of this encounter Visit Diagnoses Not on filedocumented in this encounter Care Teams Peel Oven Tender Relationship Specialty Start Date End Date None, Provider PCP - General 02/24/24 03/18/24 Izabella Snowden LICSW 1 [facility], 3rd [place] [phone] Provider Relations Rep 02/21/23 05/03/24 documented as of this encounter
--- OUTSIDE RECORDS SUMMARY | 2024-11-22 16:51 | XMS_ITS | Encounter Summary ---
Author Organization [facility] Address [address] [place] [address] Care Team Providers Care Restorer Paper And Prints Name Role Phone Emigdio Veronica MD Primary Care Provider + Izabella Snowden [facility] Unavailable [phone] Encounter Details Date Type Department Care Team (Late st Contact Info) Description 12/12/2023 16:45 EST Phlebotomy Only [facility] 2 Phlebotomy [address] [place], [place] [phone] Occupational Medicine Officer, [facility] Phlebotomy Stage 3a chronic kidney disease (FORMERLY [facility]) Social History Tobacco Use Types Packs/Day Years [...] 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 Not on [...] Info) Description 01/04/2025 13:00 EST Office Visit [facility] Ophthalmology - [address] [phone] Gagandeep Rome MD [address] [place] [address] 5 [place] [address] 02/11/2025 13:30 EDT Telemedicine [facility] Hematology & Oncology - [address] [phone] Dana Padilla MD [address] [place] [address], [facility] 2 [place] [phone] documented as of this encounter Procedures Procedure Name Priority Date/Time Associated Diagnosis Comments BASIC METABOLIC PANEL (BMP) Routine 12/12/2023 16:58 EST Stage 3a chronic kidney disease (HCC-CMS) documented in this encounter Results * (ABNORMAL) BASIC METABOLIC PANEL (BMP) (12/12/2023 16:58 EST) Sodium 138 136 - 145 mmol/L 12/12/2023 17:41 EST [facility] Potassium 3.9 3.5 - 5.0 mmol/L 12/12/2023 17:41 EST [facility] Chloride 97 96 - 110 mmol/L 12/12/2023 17:41 [facility] CO2 Total 31 22 - 32 mmol/L 12/12/2023 17:41 [facility] Anion Gap 10 5 - 14 mmol/L 12/12/2023 17:41 [facility] Glucose 162(H) 70 - 99 mg/dl 12/12/2023 17:41 [facility] Calcium 9.0 8.5 - 10.5 mg/dL 12/12/2023 17:41 [facility] BUN 19 10 - 26 mg/dL 12/12/2023 17:41 [facility] Creatinine 1.28(H) 0.52 - 1.04 mg/dL 12/12/2023 17:41 [facility] eGFR 47(L) >60 mL/min/1.73 m2 12/12/2023 17:41 [facility] Blood VENOUS BLOOD / Unknown Venipuncture / Unknown 12/12/2023 16:58 EST 12/12/2023 17:12 EST us Emigdio Veronica MD CHEMISTRY & BLOOD GAS OR DERABLES Final Result Performing Organization Address City/State/[facility] Co de Phone Number [facility] [address] [place] [address] documented in this encounter Visit Diagnoses Diagnosis Stage 3a chronic kidney disease (HCC-CMS) documented in this encounter Care Teams Restorer Paper And Prints Relationship Specialty Start Date End Date Emigdio Veronica MD 2 [place] [address] PCP - General Internal Medicine - Primary Care 05/22/20 02/21/24 Izabella Snowden, SILVER RECOVERY OPERATOR 1 [facility], 3rd [place] [address] Clinical Tech 02/21/23 05/03/24 documented as of this encounter
--- OUTSIDE RECORDS SUMMARY | 2024-11-22 16:51 | XMS_ITS | Encounter Summary ---
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 Will response in refill encounter. * Telephone Encounter - Marily Willis - 01/09/2024 1000 EST Patient calling documented in this encounter Plan of Treatment Upcoming Encounters Date Type Department Care Team (Late st Contact Info) Description 01/04/2025 13:00 EST Office Visit [facility] Ophthalmology - [address] [phone] Gagandeep Rome MD [address] [place] [address], [facility] 5 [place] [address] 02/11/2025 13:30 EDT Telemedicine [facility] Hematology & Oncology - [address] [phone] Dana Padilla MD [address] [place] [address], [facility] 2 [place] [address] documented as of this encounter Visit Diagnoses Not on filedocumented in this encounter Care Teams Porcelain Enamel Installer Relationship Specialty Start Date End Date Emigdio Veronica MD 2 [place] [address] PCP - General Internal Medicine - Primary Care 05/22/20 02/21/24 Izabella Snowden, [facility] 1 [facility], 3rd [place] [address] Pharmacy Scheduler 02/21/23 05/03/24 documented as of this encounter
--- OUTSIDE RECORDS SUMMARY | 2024-11-22 16:51 | XMS_ITS | Encounter Summary ---
Author Organization [facility] Address [address] [place] [address] Care Team Providers Care Regional Project Manager Name Role Phone Emigdio Veronica MD Primary Care Provider + Izabella Snowden [facility] [phone] Reason for Visit * Reason Onset Date Comments Medications Refill 01/09/2024 Encounter Details Date Type Department Care Team (Late st Contact Info) Description 01/09/2024 Refill [facility] Adult Primary Care - [place] 2 [place], [place] [phone] Emigdio Veronica MD [address] [place] [address] Medications Refill Social History Tobacco [...] 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 Daily Max: 15 mg 84 Tablet 01/13/2024 02/10/2024 documented in this encounter Miscellaneous Notes * Telephone Encounter - Jes Mayorga RN - 01/09/2024 1144 EST Appointment scheduled. * Telephone Encounter - Emigdio Veronica III, MD - 01/09/2024 1035 EST Spoke to Gena in regards to her recent urinary drug screen. Dicussed that the screen in office (POCT), the polysubstance panel screen at [facility] and a subsequent buprenorphine metabolite test all confirmed the presence of buprenorphine. She denies taking buprenorphine, but notes she did take a pill of unknown substance from a friend when she was struggling to sleep several weeks ago. She thought it was a trazodone, but concedes it could have been another pill. She understands that this was a violation of her control substance agreement. We discussed next steps. She is willing to return to our office for the foreseeable future in monthly (4-6 weeks) intervals for chronic pain management and monitoring. We will plan for random urine screens during these visits and possibility in between. We discussed explicitly that if she fails another urine screen or we see another violation of her controlled substance agreement that we would bepursuing a taper off of her oxycodone therapy. She expresses understanding of this plan was appreciative for the call. Triage can we try to arrange a follow-up visit in January? F30 chronic pain syndrome. * Telephone Encounter - Jes Mayorga RN - 01/09/2024 1018 EST Patient would like call once sent to pharmacy. Order pended. * Telephone Encounter - Marily Willis - 01/09/2024 1001 EST Requested Prescriptions Pending Prescriptions Disp Refills oxyCODONE (ROXICODONE) 5 mg immediate release tablet 84 Tablet 0 Sig: Take 1 Tablet by mouth 3 times daily as needed for up to 28 days for Pain. Daily Max: 15 mg [address] [place] [address] Confirmed Pharmacy? Yes Patient out of medication? No patient will be out at the end of the week How many pills does patient have left? Last Refill Date: 12/16/2023 Refills left? (explain exceptions requiring early refill) Yes, Recent Visits Date Type Provider Dept 12/21/23 Office Visit Emigdio Veronica III, MD [facility] Adult Prim Care 11/17/23 Office Visit Emigdio Veronica III, MD [facility] Adult Prim Care 09/21/23 Office Visit Emigdio Veronica III, MD [facility] Adult Prim Care 09/13/23 Office Visit Emigdio Veronica III, MD [facility] Adult Prim Care 09/07/23 Office Visit Scottie Campuzano PA-C [facility] Adult Prim Care 08/25/23 Office Visit Ruth Ortez MD PhD [facility] Adult Prim Care 07/13/23 Office Visit Emigdio Veronica III, MD [facility] [place] Adult Prim Care 06/29/23 Office Visit Scottie Campuzano PA-C [facility] [place] Adult Prim Care 06/10/23 Office Visit Emigdio Veronica III, MD [facility] Adult Prim Care 05/26/23 Office Visit Scottie Campuzano PA-C [facility] Adult Prim Care Showing recent visits within past 540 days with a meds authorizing provider and meeting all other requirements Future Appointments Date Type Provider Dept 03/07/24 Appointment Emigdio Veronica III, MD [facility] Adult Prim Care Showing future appointments within next 150 days with a meds authorizing provider and meeting all other requirements Future appointment: Already Scheduled 03/04/2024 Marily Willis 01/09/2024 10:01 documented in this encounter Plan of Treatment Upcoming Encounters Date Type Department Care Team (Late st Contact Info) Description 01/04/2025 13:00 EST Office Visit [facility] Ophthalmology [address] [phone] Gagandeep Rome MD [address] [place] [address], [facility] 5 [place] [phone] 02/11/2025 13:30 EDT Telemedicine [facility] Hematology & Oncology [address] [phone] Dana Padilla MD [address] [place] [address], Level 2 [place] [phone] documented as of this encounter Visit Diagnoses Not on filedocumented in this encounter Discontinued Medications Medication Sig Discontinue Reason Start Date End Da te oxyCODONE (ROXICODONE) 5 mg immediate release tablet Take 1 Tablet by mouth 3 times daily as needed for up to 28 days for Pain. Daily Max: 15 mg Reorder 12/16/2023 01/09/2024 documented as of this encounter Care Teams Regional Project Manager Relationship Specialty Start Date End Date Emigdio Veronica MD [address] [place] [address] PCP - General Internal Medicine - Primary Care 05/22/20 02/21/24 Izabella Snowden, [facility] 1 [facility], 3rd [place] [address] Administrative Tech 02/21/23 05/03/24 documented as of this encounter
--- OUTSIDE RECORDS SUMMARY | 2024-11-22 16:51 | XMS_ITS | Encounter Summary ---
Author Organization [facility] Address [address] [place] [address] Care Team Providers Care Underground Miner Name Role Phone Emigdio Veronica MD Primary Care Provider + Izabella Snowden [facility] [phone] Reason for Visit * Reason Onset Date Comments Foot Swelling 11/24/2023 Encounter Details Date Type Department Care Team (Late st Contact Info) Description 11/24/2023 Telephone [facility] Adult Primary Care - [place] [address] [place] [address] Emigdio Veronica MD [address] [place] [address] Foot Swelling Social History Tobacco Use Types Packs/Day Years [...] 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 She had to cancel her office visit for today as she cannot get a ride. She says that she has checked with multiple people ad no one is available to bring her to appt today. Pain, redness, and swelling in her feet/legs. This is new since she saw Dr Veronica on 11/17/23. Legs burn. Makes it hard to walk. Redness is form knee down and is mostly in front of her legs, from what she can see. Hurts to even put a finger on her leg. Feels very hot to touch. It came on fast and furious over the past few days. Legs are still really red and sore today. She thinks some of the swelling went down- they were elevated all night, but still present. She is still running low grade fever- 100.2 F. Taking tylenol when she can. Weight is not coming down to baseline. Taking 60mg furosemide; also taking spironolactone. She has been wheezing quite a bit- using O2 during the day when really SOB. Has COPD, but this seems worse recently. Negative COVID test on Tuesday. She is congested and throat is a little sore, chills, no energy or appetite. She just feels lousy. Feels like she is getting dehydrated- feels dry. Reccommended that Pt is evaluated somewhere today- even if that means the ED. Pt cannot get a ride to come in for end of day office today. But she says that she can likely get aride to the ED this evening. If she cannot, she can call an ambulance to bring her to ED. (She is also aware that weekend clinic is available tomorrow if needed and if she does not end up having it evaluated today, though it is recommended that she has evaluation today.) Pt verbalized understanding of the plan and recommendation. No barriers. * Telephone Encounter - Noemi Hall - 11/25/2023 0811 EST Patient cancelled her appt today with Scottie because she didn't have a ride. Patient states her legsare in bad shape and water pill isn't doing anything. Told patient I would have someone follow up with her today. She says she will go to ED if necessary * Telephone Encounter - Karol Hoff RN - 11/24/2023 1638 EST Spoke to patient who states she has been taking furosemide 60 mg daily since being seen on 11/17 byDr Veronica. She reports her bilateral foot swelling and pain and redness has worsened since then and also had a T max of 101, but none now. She reports a home weight of 220 lbs yesterday. OV scheduled for tomorrow. Denies respiratory symptoms related to fever. * Telephone Encounter - Cynthia Huang - 11/24/2023 1523 EST Reason for Call: Foot Swelling Summary/Symptoms: Pt is calling as her feet are so swollen she can't walk. Please call and advise as to next steps. Onset and Duration: several days Previously seen at/discussed with this office for issue: Yes Does the patient have a computer, laptop or smart phone with high speed & video capability? N/A If so, would they be interested in doing a video visit via [employer]? N/A Appointment Offered? No Cynthia Huang 11/24/2023 15:24 documented in this encounter Plan of Treatment Upcoming Encounters Date Type Department Care Team (Late st Contact Info) Description 01/04/2025 13:00 EST Office Visit [facility] Ophthalmology - [address] [phone] Gagandeep Rome MD [address] [place] [address] 5 [place] [phone] 02/11/2025 13:30 EDT Telemedicine [facility] Hematology & Oncology [address] [phone] Dana Padilla MD [address] [place] [address], [facility] 2 [place] [phone] documented as of this encounter Visit Diagnoses Not on filedocumented in this encounter Care Teams Underground Miner Relationship Specialty Start Date End Date Emigdio Veronica MD 2 [place] [address] PCP - General Internal Medicine - Primary Care 05/22/20 02/21/24 Izabelal Snowden, FINANCIAL SERVICES AGENT 1 [facility], 3rd [place] [address] Electrical Maintenance Engineer 02/21/23 05/03/24 documented as of this encounter
--- OUTSIDE RECORDS SUMMARY | 2024-11-22 16:51 | XMS_ITS | Encounter Summary ---
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 [...] Info) Description 01/04/2025 13:00 EST Office Visit [facility] Ophthalmology - [address] [phone] Gagandeep Rome MD [address] [place] [address], [facility] 5 [place] [phone] 02/11/2025 13:30 EDT Telemedicine [facility] Hematology & Oncology - [address] [phone] Dana Padilla MD [address] [place] [address], [facility] 2 [place] [phone] documented as of this encounter Visit Diagnoses Diagnosis Positive urine drug screen- Primary Nonspecific abnormal toxicological findings documented in this encounter Care Teams Groundman Relationship Specialty Start Date End Date Emigdio Veronica MD 2 [place] [phone] PCP - General Internal Medicine - Primary Care 05/22/20 02/21/24 Izabella Snowden, BULLET MAKER 1 [facility], 3rd [place] [address] Paint Spraying Machine Operator Helper 02/21/23 05/03/24 documented as of this encounter
--- OUTSIDE RECORDS SUMMARY | 2024-11-22 16:51 | XMS_ITS | Encounter Summary ---
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 (TOTAL DAILY DOSE OF THIS MEDICATION IS 150 MG). 90 Capsule 3 02/14/2024 documented in this encounter Miscellaneous Notes * Telephone Encounter - Cris Taylor RN - 02/14/2024 0944 EDT Medication(s) Requested: venlafaxine 150 mg Preferred Pharmacy: [facility] Is patient out of medication? Unknown Last Refill Date: 02/24/23 Last Visit Date with Ordering Provider: 02/01/24 Next Non-Acute Visit Date Scheduled with Care Team: 03/07/24 CRIS TAYLOR RN 02/14/2024 9:44 documented in this encounter Plan of Treatment Upcoming Encounters Date Type Department Care Team (Late st Contact Info) Description 01/04/2025 13:00 EST Office Visit [facility] Ophthalmology - [address] [phone] Gagandeep Rome MD [address] [place] [address], [place] [address] [place] [phone] 02/11/2025 13:30 EDT Telemedicine [facility] Hematology & Oncology - [facility] [address] [place], [place] [phone] Dana Padilla MD 111 [facility], [facility], Level [address] [place] [phone] documented as of this encounter Visit Diagnoses Not on filedocumented in this encounter Discontinued Medications Medication Sig Discontinue Reason Start Date End Da te venlafaxine (EFFEXOR-XR) 150 mg XR capsule Take 1 Capsule by mouth daily. (total daily dose of this medication is 150 mg). 02/24/2023 02/14/2024 documented as of this encounter Care Teams Nail Mill Worker Relationship Specialty Start Date End Date Emigdio Veronica MD 2 [place] [phone] PCP - General Internal Medicine - Primary Care 05/22/20 02/21/24 Izabella Snowden, [facility] 1 [facility], 3rd [place] [address] Operations Executive 02/21/23 05/03/24 documented as of this encounter
--- OUTSIDE RECORDS SUMMARY | 2024-11-22 16:51 | XMS_ITS | Encounter Summary ---
Author Organization [facility] Address [address] [place] [address] Care Team Providers Care Smoking Pipe Mounter Name Role Phone Emigdio Veronica MD Primary Care Provider + Izabella Snowden [facility] Unavailable [phone] Reason for Referral * (Routine/Next Available) - Receiving Office to Obtain Authorization Specialty Diagnoses / Procedures Referred By Contac t Referred To Contact Procedures XR OUTSIDE IMAGES LEFT UPPER EXTREMITY Imaging, External Referral ID Status Reason Start Date Expiration Date Visits Requested Visits Authorized [id number] Receiving Office to Obtain Authorization 02/23/2024 1 1 Reason for Visit * (Routine/Next Available) - Receiving Office to Obtain Authorization Specialty Diagnoses / Procedures Referred By Contac t Referred To Contact Procedures XR OUTSIDE IMAGES LEFT UPPER EXTREMITY Imaging, External Referral ID Status Reason Start Date Expiration Date Visits Requested Visits Authorized [id number] Receiving Office to Obtain Authorization 02/23/2024 1 1 Encounter Details Date Type Department Care Team (Latest Contact Info) Description 02/13/2024 - 02/13/2024 23:59 EDT Hospital Encounter [facility] Secondary Reads [place] Discharge Disposition: [...] 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 spironolactone (ALDACTONE) 100 mg tablet Take 0.5 Tablets by mouth daily. 06/12/2023 sucralfate (CARAFATE) 1 gram tablet Take 1 Tablet by mouth 4 times daily. 120 Tablet 3 12/21/2023 venlafaxine (EFFEXOR-XR) 150 mg XR capsule TAKE [...] NEEDED FOR ANXIETY. 540 Tablet 1 11/04/2023 spironolactone (ALDACTONE) 100 mg tablet Take 1 Tablet by mouth daily. 90 Tablet 1 12/16/2023 4 traZODone (DESYREL) 50 mg tablet Take 1 Tablet by mouth at bedtime. 30 Tablet 1 02/01/2024 venlafaxine (EFFEXOR-XR) 150 mg XR capsule Take 1 Capsule by mouth daily. (total daily dose of this medication is 150 mg). 90 Capsule 3 02/24/2023 documented as of this encounter Discharge Disposition Disposition Code Departure Means Destination Home or Self Care documented in this encounter Plan of Treatment Upcoming Encounters Date Type Department Care Team (Late st Contact Info) Description 01/04/2025 13:00 EST Office Visit [facility] Ophthalmology - [address] [phone] Gagandeep Rome MD [address] [place] [address], [facility] 5 [place] [phone] 02/11/2025 13:30 EDT Telemedicine [facility] Hematology & Oncology - [address] [phone] Dana Padilla MD [address] [place] [address] 2 [place] [address] documented as of this encounter Procedures Procedure Name Priority Date/Time Associated Diagnosis Comments XR OUTSIDE IMAGES LEFT UPPER EXTREMITY Routine 02/13/2024 9:08 EDT documented in this encounter Results * XR OUTSIDE IMAGES LEFT UPPER EXTREMITY (02/13/2024 9:08 EDT) Narrative 02/23/2024 9:08 EDT This is a non-reportable exam. us External Imaging IMG OTHER IMAGING ORDERABLES Fi nal Result documented in this encounter Visit Diagnoses Not on filedocumented in this encounter Care Teams Smoking Pipe Mounter Relationship Specialty Start Date End Date Emigdio Veronica MD 2 [place] [address] PCP - General Internal Medicine - Primary Care 05/22/20 02/21/24 Izabella Snowden, BREW HOUSE SUPERVISOR 1 [facility], 3rd [place] [address] Precision Lathe Operator 02/21/23 05/03/24 documented as of this encounter
--- OUTSIDE RECORDS SUMMARY | 2024-11-22 16:51 | XMS_ITS | Encounter Summary ---
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 (5 years old or older) Answer Date of Assessment Author Yes 09/08/2023 17:08 Aj Hall, KENN * Do you have difficulty dressing or [...] Info) Description 01/04/2025 13:00 EST Office Visit [facility] Ophthalmology - [address] [phone] Gagandeep Rome MD [address] [place] [address] 5 [place] [phone] 02/11/2025 13:30 EDT Telemedicine [facility] Hematology & Oncology [address] [phone] Dana Padilla MD [address] [place] [address] 2 [place] [phone] documented as of this encounter Results * [...] 3 OR MORE VIEWS 4 views ?? [id number] Narrative 02/29/2024 15:34 EDT EXAM/TECHNIQUE: 02/29/2024 1:36 [...] LEFT 3 OR MORE VIEWS 4 views [id number] us Riky Butts MD IMG DIAGNOSTIC IMAGING ORDERAB LES Final Result documented in this encounter Visit Diagnoses Diagnosis Left wrist pain- Primary Pain in joint, forearm Left wrist pain Pain in joint, forearm documented in this encounter Care Teams Children'S Lunchroom Supervisor Relationship Specialty Start Date End Date None, Provider PCP - General 02/24/24 03/18/24 Izabella Snowden, [facility] 1 [facility], 3rd [place] [address] Community Relations Specialist 02/21/23 05/03/24 documented as of this encounter
--- OUTSIDE RECORDS SUMMARY | 2024-11-22 16:52 | XMS_ITS | Encounter Summary ---
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 No answer, [facility] for patient. Let patient know that I will be out of the office this afternoon and all day 2022. PLAN: F/U with patient later in the week. DARNELL MCCORMICK 10/10/2023 11:24 documented in this encounter Plan of Treatment Upcoming Encounters Date Type Department Care Team (Late st Contact Info) Description 01/04/2025 13:00 EST Office Visit [facility] Ophthalmology - [address] [phone] Gagandeep Rome MD [address] [place] [address], [facility] 5 [place] [address] 02/11/2025 13:30 EDT Telemedicine [facility] Hematology & Oncology [address] [phone] Dana Padilla MD [address] [place] [address], [facility] 2 [place] [phone] documented as of this encounter Visit Diagnoses Not on filedocumented in this encounter Care Teams Tappet Adjuster Relationship Specialty Start Date End Date Emigdio Veronica MD 2 [place] [phone] PCP - General Internal Medicine - Primary Care 05/22/20 02/21/24 Izabella Snowden, [facility] 1 [facility], 3rd [place] [address] Charcoal Unloader 02/21/23 05/03/24 documented as of this encounter
--- OUTSIDE RECORDS SUMMARY | 2024-11-22 16:52 | XMS_ITS | Encounter Summary ---
Author Organization [facility] Address [address] [place] [address] Care Team Providers Care Supervisor Boatbuilders Wood Name Role Phone Emigdio Veronica MD Primary Care Provider + Izabella Snowden [facility] Unavailable None, Provider Primary Care Provider Gabriel Wei Primary Care Provider Mirna Guerrero Primary Care Provider + Reason for Visit * Reason Comments Medications Refill Encounter Details Date Type Department Care Team (Late st Contact Info) Description 10/18/2023 Refill [facility] Adult Primary Care - [place] 2 [place] [address] Emigdio Veronica MD [address] [place] [address] Medications Refill Social History Tobacco [...] 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 Answer Date of Assessment Author No 09/14/2023 15:57 EDT Lala Sullivan, RN * Are you blind or do [...] Filled Start Date End Date enoxaparin (LOVENOX) 60 mg/0.6 mL injection Inject 60 mg into the skin daily. 54 mL 3 10/19/2023 4 furosemide (LASIX) 20 mg tablet TAKE 3 TABLETS EVERY DAY. IF FLUID IN LEGS IS WELL CONTROLLED THEN CUT DOWN TO 2 EVERY DAY. 90 Tablet 10/19/2023 3 documented in this encounter Miscellaneous Notes * Telephone Encounter - Pam Ivey RN - 10/19/2023 1047 EST Furosemide refilled. Lovenox is prescribed by hem/onc. Rerouting refill request to that office. * Telephone Encounter - Sally Jorge - 10/19/2023 1024 EST Requested Prescriptions Pending Prescriptions Disp Refills ??? furosemide (LASIX) 20 mg tablet [Pharmacy Med Name: FUROSEMIDE 20 MG TABLET] 90 Tablet 1 Sig: TAKE 3 TABLETS EVERY DAY. IF FLUID IN LEGS IS WELL CONTROLLED THEN CUT DOWN TO 2 EVERY DAY. ??? enoxaparin (LOVENOX) 60 mg/0.6 mL injection 54 mL 3 Sig: Inject 60 mg into the skin daily. [facility]/pharmacy #[id number] - [address] Confirmed Pharmacy? Yes Patient out of medication? No How many pills does patient have left? Has a few days left Last Refill Date: 02.17.23 - Lovenox & Lasix 05.31.23 Refills left? (explain exceptions requiring early refill) No Recent Visits Date Type Provider Dept 09/21/23 Office Visit Emigdio Veronica III, MD [facility] Adult Prim Care 09/13/23 Office Visit Emigdio Veronica III, MD [facility] Adult Prim Care 09/07/23 Office Visit Scottie Campuzano PA-C [facility] Adult Prim Care 08/25/23 Office Visit Ruth Ortez MD PhD [facility] Adult Prim Care 07/13/23 Office Visit Emigdio Veronica III, MD [facility] Adult Prim Care 06/29/23 Office Visit Scottie Campuzano PA-C [facility] Adult Prim Care 06/10/23 Office Visit Emigdio Veronica III, MD [facility] Adult Prim Care 05/26/23 Office Visit Scottie Campuzano PA-C [facility] Adult Prim Care 05/05/23 Office Visit Emigdio Veronica III, MD [facility] Adult Prim Care 04/26/23 Office Visit Scottie Campuzano PA-C [facility] Adult Prim Care Showing recent visits within past 540 days with a meds authorizing provider and meeting all other requirements Future Appointments Date Type Provider Dept 12/26/23 Appointment Emigdio Veronica III, MD [facility] Adult Prim Care Showing future appointments within next 150 days with a meds authorizing provider and meeting all other requirements Future appointment: Already Scheduled Sally Jorge 10/19/2023 10:25 documented in this encounter Plan of Treatment Upcoming Encounters Date Type Department Care Team (Late st Contact Info) Description 01/04/2025 13:00 EST Office Visit [facility] Ophthalmology - [address] [phone] Gagandeep Rome MD 111 [facility], [facility] 5 [place] [address] 02/11/2025 13:30 EDT Telemedicine [facility] Hematology & Oncology - [address] [phone] Dana Padilla MD [address] [facility], [facility] 2 [place] [address] documented as of this encounter Visit Diagnoses Not on filedocumented in this encounter Discontinued Medications Medication Sig Discontinue Reason Start Date End Da te furosemide (LASIX) 20 mg tablet TAKE 3 TABLETS EVERY DAY. IF FLUID IN LEGS IS WELL CONTROLLED THEN CUT DOWN TO 2 EVERY DAY. 05/31/2023 10/19/2023 enoxaparin (LOVENOX) 60 mg/0.6 mL injection Inject 60 mg into the skin daily. Reorder 02/17/2023 10/19/2023 documented as of this encounter Care Teams Supervisor Boatbuilders Wood Relationship Specialty Start Date End Date Emigdio Veronica MD [address] [place] [phone] PCP - General Internal Medicine - Primary Care 05/22/20 02/21/24 None, Provider PCP - General 02/24/24 03/18/24 Gabriel Gandara PA PCP - General 03/19/24 09/11/24 Mirna Guerrero PA [address] [place] [address] PCP - General 09/12/24 Izabella Snowden, TIRE BLADDER MAKER 1 [facility], 3rd [place] [address] Celebrity Manager 02/21/23 05/03/24 documented as of this encounter
--- OUTSIDE RECORDS SUMMARY | 2024-11-22 16:52 | XMS_ITS | Encounter Summary ---
Author Organization [facility] Address [address] [place] [address] Care Team Providers Care Commercial Insurance Underwriter Name Role Phone Emigdio Veronica MD Primary Care Provider + Izabella Snowden [facility] None, Provider Primary Care Provider Gabriel Wei Primary Care Provider Mirna Guerrero Primary Care Provider + Reason for Visit * Reason Onset Date Comments Home Health 10/11/2023 Encounter Details Date Type Department Care Team (Late st Contact Info) Description 10/11/2023 Telephone [facility] Adult Primary Care - [place] [address] [place] [address] Emigdio Veronica MD [address] [place] [address] Home Health Social History Tobacco Use Types Packs/Day Years [...] 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 Home health has tried to contact the pt x 2 weeks and can't get a hold of the pt and pt has not returned there calls. Home Health is discharging patient documented in this encounter Plan of Treatment Upcoming Encounters Date Type Department Care Team (Late st Contact Info) Description 01/04/2025 13:00 EST Office Visit [facility] [place] [address] Gagandeep Rome MD [address] [place] [address], Level 5 [place] [phone] 02/11/2025 13:30 EDT Telemedicine [facility] Hematology & Oncology - [address] [phone] Dana Padilla MD [address] [facility], [facility], Level [address] [place] [address] documented as of this encounter Visit Diagnoses Not on filedocumented in this encounter Care Teams Commercial Insurance Underwriter Relationship Specialty Start Date End Date Emigdio Veronica MD [address] [place] [address] PCP - General Internal Medicine - Primary Care 05/22/20 02/21/24 None, Provider PCP - General 02/24/24 03/18/24 Gabriel Gandara PA PCP - General 03/19/24 09/11/24 Mirna Guerrero PA [address] [place] [address] PCP - General 09/12/24 Izabella Snowden, [facility] 1 [facility], 3rd [place] [phone] Railroad Dining Car Steward/Stewardess 02/21/23 05/03/24 documented as of this encounter
--- OUTSIDE RECORDS SUMMARY | 2024-11-22 16:52 | XMS_ITS | Encounter Summary ---
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 IF FLUID IN LEGS IS WELL CONTROLLED THEN CUT DOWN TO 2 EVERY DAY. 270 Tablet 1 11/16/2023 documented in this encounter Miscellaneous Notes * Telephone Encounter - Glenny Khan RN - 11/16/2023 5559 EST Requested Prescriptions Pending Prescriptions Disp Refills furosemide (LASIX) 20 mg tablet [Pharmacy Med Name: FUROSEMIDE 20 MG TABLET] 270 Tablet 1 Sig: TAKE 3 TABLETS EVERY DAY. IF FLUID IN LEGS IS WELL CONTROLLED THEN CUT DOWN TO 2 EVERY DAY. [id number] - [address] Confirmed Pharmacy? Yes Patient out of medication? Unknown Last Refill Date: 10/19/23 #90 with 0 rf Refills left? (explain exceptions requiring early refill) No Recent Visits Date Type Provider Dept 09/21/23 Office Visit Emigdio Veronica III, MD [facility] Adult Prim Care 09/13/23 Office Visit Emigdio Veronica III, MD [facility] Adult Prim Care 09/07/23 Office Visit Scottie Campuzano PA-C [facility] Adult Prim Care 08/25/23 Office Visit Ruth Ortez MD PhD [facility] Adult Prim Care 07/13/23 Office Visit Emigdio Veronica III, MD [facility] [place] Adult Prim Care 06/29/23 Office Visit Scottie Campuzano PA-C [facility] [place] Adult Prim Care 06/10/23 Office Visit Emigdio Veronica III, MD [facility] [place] Adult Prim Care 05/26/23 Office Visit Scottie Campuzano PA-C [facility] [place] Adult Prim Care 05/05/23 Office Visit Eimgdio Veronica III, MD [facility] Adult Prim Care 04/26/23 Office Visit Scottie Campuzano PA-C [facility] Adult Prim Care Showing recent visits within past 540 days with a meds authorizing provider and meeting all other requirements Future Appointments Date Type Provider Dept 12/26/23 Appointment Emigdio Veronica III, MD [facility] Adult Prim Care Showing future appointments within next 150 days with a meds authorizing provider and meeting all other requirements Future appointment: Already Scheduled GLENNY KHAN RN 11/16/2023 13:45 documented in this encounter Plan of Treatment Upcoming Encounters Date Type Department Care Team (Late st Contact Info) Description 01/04/2025 13:00 EST Office Visit [facility] Ophthalmology - [address] [phone] Gagandeep Rome MD [address] [place] [address], [facility] 5 [place] [phone] 02/11/2025 13:30 EDT Telemedicine [facility] Hematology & Oncology [address] [phone] Dana Padilla MD [address] [place] [address], [facility] 2 [place] [address] documented as of this encounter Visit Diagnoses Not on filedocumented in this encounter Discontinued Medications Medication Sig Discontinue Reason Start Date End Da te furosemide (LASIX) 20 mg tablet TAKE 3 TABLETS EVERY DAY. IF FLUID IN LEGS IS WELL CONTROLLED THEN CUT DOWN TO 2 EVERY DAY. 10/19/2023 11/16/2023 documented as of this encounter Care Teams Rubber Curer Relationship Specialty Start Date End Date Emigdio Veronica MD [address] [place] [phone] PCP - General Internal Medicine - Primary Care 05/22/20 02/21/24 Izabella Snowden, [facility] 1 [facility], 3rd [place] [phone] Upsetter 02/21/23 05/03/24 documented as of this encounter
--- OUTSIDE RECORDS SUMMARY | 2024-11-22 16:52 | XMS_ITS | Encounter Summary ---
Author Organization [facility] Address [address] [place] [address] Care Team Providers Care Slipcover Cutter Name Role Phone Emigdio Veronica MD Primary Care Provider + Izabella Snowden [facility] Unavailable [phone] Reason for Visit * Reason Comments Post-ED Follow Up Chronic Pain Medication managemen t Encounter Details Date Type Department Care Team (Late st Contact Info) Description 09/21/2023 15:00 EDT Office Visit [facility] Adult Primary Care - [place] [address] [place], [place] [phone] Emigdio Veronica MD [address] [place] [address] Cirrhosis of liver without ascites, unspecified hepatic cirrhosis type (HCC-CMS) (Primary Dx); Lower extremity edema; History of dehydration; Stage 3a chronic kidney disease (HCC-CMS); Chronic pain syndrome; Housing insecurity; Healthcare maintenance Social History Tobacco Use Types [...] hard is it for you to pa rox for the very basics like food, housing, [...] 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..] with a trained counselor. Tobacco Counseling in [facility] offers free counseling services to residents who are ready to cut back or quit using tobacco. Services include: phone coaching (), online tools and support for those who would like to make changes on their own (www.Padinmotion), as well as in-person group workshops. Free nicotine replacement therapy is available through all of these resources. To learn more about your options visit www.Padinmotion or call 3-899-GXLY-NOW ( ). To speak with an in-person tobacco counselor in [facility] call, [phone]. [facility], please visit: [email or web address]/ I hope you quit smoking. I think it's the best thing you can do for your health. Please call our office if you have any questions. documented in this encounter Progress Notes * Emigdio Veronica III, MD - 09/21/2023 1500 EDT Tara Yun is a 63 y.o. female with a PMHx of stage IIIa chronic kidney disease, hypothyroidism, chronic pain syndrome, splenic vein thrombosis, COPD, MDD, NAFLD PRIMARY CARE PROVIDER: Emigdio Veronica III CHIEF COMPLAINT: Chief Complaint Patient presents with ??? Post-ED Follow Up ??? Chronic Pain Medication management SUBJECTIVE: Tara Yun presents today for a follow-up visit on multiple issues. She reports improved hydration and oral intake over the last week and notes that she has restarted her furosemide diuretic at 60 mg daily she began to appreciate increased lower extremity edema over the same timeframe. She continues to note a significant amount of stress regarding her current living situation. She continues to report concerning encounters with her current roommates. She has been closely following with our social work team to secure alternative housing. Unfortunately she was unable to complete several rent subsidized housing applications this week due to an absence of a Social Security card. Sheis now working with social work to secure a new card. She reports that she has heard from family and friends that there may be an apartment available in the [place], [place] far in the [place] of [place] [facility]. She is planning to evaluate the apartment with her family this weekend and is intending to stay with her daughter in [place] next week. She continues to report moderate pain control with her current prescription of oxycodone at 5 mg 3 times daily as needed. She notes that she is due for a refill next week and she concedes this will add some difficulty to her travel plans. We discussed sending her prescription to a pharmacy closer to where she will be staying in [facility], but she expresses interest in trying to secure an early refill at her current pharmacy in [place]. We discussed that the patient has been reviewed by her pharmacy previously due to her repeated requests for early refills. Discussed that it is verylikely that any request for vacation override will be rejected by her pharmacy. ROS as above Medications and history reviewed. Current Outpatient Medications Medication ??? albuterol 90 mcg/actuation inhaler ??? diclofenac sodium gel ??? doxepin (SINEQUAN) 10 mg capsule ??? enoxaparin (LOVENOX) 60 mg/0.6 mL injection ??? fluticasone propionate (FLOVENT DISKUS) 100 mcg/actuation blister with device ??? furosemide (LASIX) 20 mg tablet ??? gabapentin (NEURONTIN) 300 mg capsule ??? hydrOXYzine (ATARAX) 25 mg tablet ??? INCRUSE ELLIPTA 62.5 mcg/actuation ??? lactulose (CHRONULAC) 10 gram/15 mL solution ??? levothyroxine (SYNTHROID) 25 mcg tablet ??? naloxone (NARCAN) 4 mg/actuation nasal spray ??? ondansetron (ZOFRAN) 4 mg tablet ??? [START ON 09/27/2023] oxyCODONE (ROXICODONE) 5 mg immediate release tablet ??? OXYGEN-AIR DELIVERY SYSTEMS MISC ??? spironolactone (ALDACTONE) 100 mg tablet ??? sucralfate (CARAFATE) 1 gram tablet ??? venlafaxine (EFFEXOR-XR) 150 mg XR capsule No current facility-administered medications for this visit. Facility-Administered Medications Ordered in Other Visits Medication Route Frequency ??? albuterol (ACCUNEB) 2.5 mg /3 mL (0.083 %) nebulizer solution OBJECTIVE: BP 120/58 (BP Cuff Location: Left arm, BP Patient Position: Sitting, BP Cuff Sizes: Adult, large) Pulse 91 Comment: r Temp 36.5 ??C (97.7 ??F) (Skin) Resp 16 Wt (!) 101 kg (222 lb 9.6 oz) BMI 38.21 kg/m?? Gen: Fatigued appearing middle-aged female, NAD HEENT: EOMI, PERRL, conjunctiva pink, no scleral injection/ icterus Extrem: Trace bilateral lower extremity edema Skin: No rashes or erythema, intact Musk: Normal muscle tone and bulk, gait within normal limits Psych: Okay mood and congruent affect, speech within normal limits, thought process and thought content within normal limits, dressed appropriate for the season, no endorsed SI or HI, judgment andinsight appears fair. Neuro: A&Ox3, CN II through XII grossly intact Recent Labs/Imaging: Reviewed in epic ASSESSMENT and PLAN: Tara was seen today for post-ed follow up and chronic pain. Diagnoses and all orders for this visit: Cirrhosis of liver without ascites, unspecified hepatic cirrhosis type (HCC- CMS), Lower extremity edema, CKD stage IIIa, history of dehydration: Patient appears euvolemic on exam today and she confirms improved oral intake over the past week. She continues to cite her current living situation is the greatest barrier to maintaining routine hydration and good oral intake. She reports however that she is planning to leave her current apartment by the end of this month and is looking into a new living space in [place], [place]. She is currently reliant on family for transportation. Chronic pain syndrome: Stable. Patient is requesting a vacation override to allow an early refill of her oxycodone as she is planning to be in another part [place] the [place] next week when she will be duefor her next refill. -Following this encounter we verified with her pharmacy that no further early refills will be authorized. Discussed with the patient and she is willing to have her oxycodone prescription filled at her current pharmacy in [place] next week. She states she will have her daughter pickling machine operator the prescription. Housing insecurity: As noted above patient is currently working with social work to locate a new living space. She is interested in moving to [facility]. She denies interest in pursuing a transfer of her primary care services to an office in that location expressing a preference to continue care with providers she knows. We discussed that if she does move to [place], [place] it would be a several hour journey to travel to her [facility]. She does not currently have a car and is reliant on family. We discussed that per state law she would have to present to ouroffice at least every 3 months for continued use of opiate therapy for her pain. Advised that in that setting she may want to reconsider transferring to a PCP in the [facility], however we discussed that this decision is not urgent and can be addressed at a later time. -Follow-up with social work as scheduled Healthcare maintenance Health Maintenance Topic Date Due ??? Asthma Action Plan Never done ??? Lung Function Test (Spirometry) Never done ??? Copd Action Plan Never done ??? Advance Directive Never done ??? Preventive Care Visit Never done ??? Cervical Cancer Screening Never done ??? Colorectal Cancer Screening Never done ??? Breast Cancer Screening Never done ??? Pill Count Never done ??? Urine Drug Screen 04/29/2022 ??? COVID-19 Vaccine (2022- season) 2023 ??? Depression Screening 02/25/2024 ??? Social Determinants Of Health (SDOH) 04/29/2024 ??? Prescription Agreement 07/13/2024 ??? Opioid Informed Consent 09/13/2024 ??? Review Of Systems Adverse Effects 09/13/2024 ??? Functional Assessment 09/13/2024 ??? Current Opioid Misuse Measurement 09/13/2024 ??? [place] Prescription Monitoring System 09/14/2024 ??? Pneumococcal Immunization (4 - PPSV23 or PCV20) 2025 ??? Lipid Profile Screening (Cholesterol) 04/16/2027 ??? Tetanus (Adult) Immunization 03/17/2029 ??? HIV Screening Completed ??? Shingles Immunization Completed ??? Hepatitis C Screen Completed ??? Influenza Immunization (Adult) Completed ??? Pertussis (Adult) Immunization Discontinued F/u: Return in about 2 months (around 11/21/2023), or f45. I spent a total of 38 minutes with this patient today face to face, in chart review and in documentation and 30 minutes of that time was spent on education and counseling for cirrhosis, lower extremity edema, history of dehydration, chronic pain syndrome, housing insecurity. Some of this note was transcribed with [employer] Analyticsating software. While it was proofread, it may still contain unnoticed grammatical or word errors due to incorrect transcribing. Emigdio Veronica III, MD 09/23/2023 10:01 documented in this encounter Plan of Treatment Upcoming Encounters Date Type Department Care Team (Late st Contact Info) Description 01/04/2025 13:00 EST Office Visit [facility] Ophthalmology - [address] [phone] Gagandeep Rome MD [address] [place] [address] 5 [place] [phone] 02/11/2025 13:30 EDT Telemedicine [facility] Hematology & Oncology [address] [phone] Dana Padilla MD [address] [place] [address], [facility] 2 [place] [phone] documented as of this encounter Visit Diagnoses Diagnosis Cirrhosis of liver without ascites, unspecified hepatic cirrhosis type (HCC-CMS)- Primary Lower extremity edema Edema History of dehydration Personal history of other endocrine, metabolic, and immunity disorders Stage 3a chronic kidney disease (HCC-CMS) Chronic pain syndrome Housing insecurity Healthcare maintenance Routine general medical examination at a health care facility documented in this encounter Care Teams Slipcover Cutter Relationship Specialty Start Date End Date Emigdio Veronica MD 2 [place] [phone] PCP - General Internal Medicine - Primary Care 05/22/20 02/21/24 Izabella Snowden, [facility] 1 [facility], 3rd [place] [address] Emergency Room Physician 02/21/23 05/03/24 documented as of this encounter
--- OUTSIDE RECORDS SUMMARY | 2024-11-22 16:52 | XMS_ITS | Encounter Summary ---
Author Organization [facility] Address [address] [place] [address] Care Team Providers Care Access Service Representative Name Role Phone Emigdio Veronica MD Primary Care Provider + Izabella Snowden [facility] [phone] Reason for Visit * Reason Comments Health Assistance Program Encounter Details Date Type Department Care Team (Late st Contact Info) Description 11/22/2023 Community Health Team [address], [facility] [address] [place] [address] [facility], Health Assistance Program [address] [place] [id number] Social History Tobacco Use Types Packs/Day Years [...] 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 She has securedhousing in [place], [place]. She declined pursuing any other housing applications at this time. Plan / Action Items: Declined any other needs or support from this RC at this time but RC support always remains available. Lucie Yao 11/22/23 10:04 documented in this encounter Plan of Treatment Upcoming Encounters Date Type Department Care Team (Late st Contact Info) Description 01/04/2025 13:00 EST Office Visit [facility] Ophthalmology - [address] [phone] Gagandeep Rome MD [address] [place] [address], [facility] 5 [place] [phone] 02/11/2025 13:30 EDT Telemedicine [facility] Hematology & Oncology [address] [phone] Dana Padilla MD [address] [place] [address], Level [address] [place] [phone] documented as of this encounter Visit Diagnoses Not on filedocumented in this encounter Care Teams Access Service Representative Relationship Specialty Start Date End Date Emigdio Veronica MD 2 [place] [phone] PCP - General Internal Medicine - Primary Care 05/22/20 02/21/24 Izabella Snowden, [facility] 1 [facility], 3rd [place] [address] Hob Mill Operator 02/21/23 05/03/24 documented as of this encounter
--- OUTSIDE RECORDS SUMMARY | 2024-11-22 16:52 | XMS_ITS | Encounter Summary ---
Author Organization [facility] Address [address] [place] [address] Care Team Providers Care Machine Hand Name Role Phone Emigdio Veronica MD Primary Care Provider + Izabella Snowden [facility] Unavailable [phone] Reason for Visit * Reason Onset Date Comments Bleeding/Bruising 11/03/2023 Labs Only 11/03/2023 Encounter Details Date Type Department Care Team (Late st Contact Info) Description 11/03/2023 Telephone [facility] Adult Primary Care - [place] [address] [place] [address] Emigdio Veronica MD [address] [place] [address] Bleeding/Bruising; Labs Only Social History Tobacco Use Types [...] 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 * Telephone Encounter - Karol Hoff RN - 11/10/2023 0839 EST LMTCB and my chart sent. Patient can either talk to triage or just book a 30 min appointment with Scottie Smith, (if either of these providers have cancellations) or Maite Vences or Karol Foy if they do not. Reason for visit is bruising but possibly also depression. * Telephone Encounter - Cynthia Huang - 11/09/2023 1629 EST Pt is calling as she said her bruising is as big as softballs and that when she pulls her needles out after giving herself her injections her blood gushes out. Pt believes she needs to be seen. Please call to advise. * Telephone Encounter - Karol Hoff RN - 11/09/2023 0859 EST Spoke to patient who is still taking her enoxaparin as ordered. She reports she is having increasedbruising/tenderness at her injections sites. She will try to get the CBC drawn today. Also touched base with her on calling Lucie Yao back as she is still living in her apartment in [place] with the roommates. * Telephone Encounter - Noemi Hall - 11/09/2023 0827 EST Patient states she is worse and has two golfball size black and blue bruises * Telephone Encounter - Pam Ivey RN - 11/04/2023 1005 EST Phone call to Pt. Left detailed message on identified voicemail relaying Dr Veronica's message. Callback if questions. * Telephone Encounter - Emigdio Veronica III, MD - 11/04/2023 0952 EST We have not placed standing orders for CBC checks previously. This was likely arranged by her farmworker general office. I would be wary of instructing Tara to present to the lab too frequently as this could worsen her pancytopenia. I will place an order for an one time CBC now to check her platelet counts as requested, but I would have her check in with her hematology team on the plan for standing orders and the timing around platelet monitoring. * Telephone Encounter - Cris Copeland - 11/03/2023 1456 EST Reason for Call: Bleeding/Bruising and Labs Only Summary/Symptoms: Pt states that she usually has a standing order for CBC. States that she has noticed more bruising and would like to get her platelets checked. Onset and Duration: recent Previously seen at/discussed with this office for issue: Yes Does the patient have a computer, laptop or smart phone with high speed & video capability? N/A If so, would they be interested in doing a video visit via [employer]? N/A Appointment Offered? No Cris Copeland 11/03/2023 15:13 documented in this encounter Plan of Treatment Upcoming Encounters Date Type Department Care Team (Late st Contact Info) Description 01/04/2025 13:00 EST Office Visit [facility] Ophthalmology - [address] [phone] Gagandeep Rome MD [address] [place] [address], [facility] [address] [place] [phone] 02/11/2025 13:30 EDT Telemedicine [facility] Hematology & Oncology [address] [phone] Dana Padilla MD [address] [place] [address], [facility] [address] [place] [address] documented as of this encounter Procedures Procedure Name Priority Date/Time Associated Diagnosis Comments COMPLETE BLOOD COUNT Routine 11/09/2023 15:10 EST Pancytopenia ([facility]) documented in this encounter Results * (ABNORMAL) COMPLETE BLOOD COUNT (11/09/2023 15:10 EST) WBC 3.25(L) 4.00 - 12.40 K/cmm 11/09/2023 17:20 EST [facility] RBC 4.27 3.86 - 5.04 M/cmm 11/09/2023 17:20 EST [facility] Hemoglobin 12.7 11.6 - 15.2 g/dL 11/09/2023 17:20 EST [facility] HCT 37.8 34.9 - 44.4 % 11/09/2023 17:20 [facility] MCV 89 81 - 98 fL 11/09/2023 17:20 [facility] MCH 29.7 26.7 - 33.3 pg 11/09/2023 17:20 [facility] MCHC 33.6 32.1 - 35.9 g/dL 11/09/2023 17:20 [facility] RDW-CV 13.5 <14.7 % 11/09/2023 17:20 [facility] RDW-SD 43.8 <50.4 fl 11/09/2023 17:20 [facility] PLT 103(L) 141 - 377 K/cmm 11/09/2023 17:20 [facility] MPV 10.0 9.5 - 12.7 fL 11/09/2023 17:20 [facility] Blood VENOUS BLOOD / Unknown Venipuncture / Unknown 11/09/2023 15:10 EST 11/09/2023 15:10 EST us Emigdio Veronica MD HEMATOLOGY & PF4 ORDERAB LES Final Result Performing Organization Address City/State/[facility] Co de Phone Number [facility] [address] [place] [address] documented in this encounter Visit Diagnoses Diagnosis Pancytopenia (HCC-CMS)- Primary Other pancytopenia documented in this encounter Care Teams Machine Hand Relationship Specialty Start Date End Date Emigdio Veronica MD [address] [place] [phone] PCP - General Internal Medicine - Primary Care 05/22/20 02/21/24 Izabella Snowden, MEDICAL ASSISTANT INSTRUCTOR [address] [facility], 3rd [place] [address] Firer Boiler 02/21/23 05/03/24 documented as of this encounter
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
--- OUTSIDE RECORDS SUMMARY | 2024-11-22 16:52 | XMS_ITS | Encounter Summary ---
Author Organization [facility] Address [address] [place] [address] Care Team Providers Care Jet Pilot Name Role Phone Emigdio Veronica MD Primary Care Provider + Izabella Snowden [facility] Unavailable [phone] Reason for Visit * Reason Comments Health Assistance Program Encounter Details Date Type Department Care Team (Late st Contact Info) Description 10/18/2023 Community Health Team [address], 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 This Video Editing Internship (RC) called and spoke with Gena. ??? She has requested a new Social Security card via mail and is waiting for the card. This RC advised she reach out as soon as the card is received and housing applications can be submitted with a copy of the card. ??? Gena states she has a lead on an apartment in [place], [place] and is waiting for the drying frame operator to return from [facility] to discuss the possibility of renting. ??? Gena states she was denied for Emergency Housing. Plan / Action Items: ?? This RC will follow-up within 10 to 14 days. Lucie Yao 10/18/23 16:55 documented in this encounter Plan of Treatment Upcoming Encounters Date Type Department Care Team (Late st Contact Info) Description 01/04/2025 13:00 EST Office Visit [facility] Ophthalmology - [address] [phone] Gagandeep Rome MD [address] [facility], [address] [place] [address] 02/11/2025 13:30 EDT Telemedicine [facility] Hematology & Oncology - [facility] [address] [place], [place] [phone] Dana Padilla MD 111 [facility], [address] [place] [phone] documented as of this encounter Visit Diagnoses Not on filedocumented in this encounter Care Teams Jet Pilot Relationship Specialty Start Date End Date Emigdio Veronica MD [address] [place] [address] PCP - General Internal Medicine - Primary Care 05/22/20 02/21/24 Izabella Snowden, [facility] 1 [facility], 3rd [place] [address] Oncology Physician Assistant 02/21/23 05/03/24 documented as of this encounter
--- OUTSIDE RECORDS SUMMARY | 2024-11-22 16:52 | XMS_ITS | Encounter Summary ---
Author Organization [facility] Address [address] [place] [address] Care Team Providers Care Vp Sales Name Role Phone Emigdio Veronica MD Primary Care Provider + Izabella Snowden [facility] Unavailable Reason for Visit * Reason Comments Health Assistance Program Encounter Details Date Type Department Care Team (Late st Contact Info) Description 10/03/2023 Community Health Team [address], [facility] [address] [place] [address] [facility], Health Assistance Program [address] [place] [phone] Social History Tobacco Use Types Packs/Day Years [...] 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 This Beauty Culturist (RC) called and spoke with Gena. ?? She did not receive the Social Security Card Request Form in the mail. This RC mailed out a second copy. Plan / Action Items: ?? This RC will follow-up within 10 to 14 days. Lucie Yao 10/03/23 12:49 documented in this encounter Plan of Treatment Upcoming Encounters Date Type Department Care Team (Late st Contact Info) Description 01/04/2025 13:00 EST Office Visit [facility] Ophthalmology [address] [phone] Gagandeep Rome MD [address] [place] [address] [address] [place] [address] 02/11/2025 13:30 EDT Telemedicine [facility] Hematology & Oncology [address] [phone] Dana Pdailla MD [address] [place] [address], [address] [place] [phone] documented as of this encounter Visit Diagnoses Not on filedocumented in this encounter Care Teams Vp Sales Relationship Specialty Start Date End Date Emigdio Veronica MD [address] [place] [address] PCP - General Internal Medicine - Primary Care 05/22/20 02/21/24 Izabella Snowden, [facility] 1 [facility], 3rd [place] [address] Lpn Per Diem 02/21/23 05/03/24 documented as of this encounter
--- OUTSIDE RECORDS SUMMARY | 2024-11-22 16:52 | XMS_ITS | Encounter Summary ---
Author Organization [facility] Address [address] [place] [address] Care Team Providers Care Polisher And Buffer Name Role Phone Emigdio Veronica MD Primary Care Provider + Izabella Snowden [facility] Unavailable [phone] Reason for Visit * Reason Comments Follow-up Encounter Details Date Type Department Care Team (Late st Contact Info) Description 10/10/2023 16:30 EST Office Visit [facility] Hematology & Oncology - [address] [phone] Dana Padilla MD 111 [facility], Level 2 [place] [address] Secondary hypercoagulable state (HCC-CMS) (Primary Dx); Thrombocytopenia [...] 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 Not on file Not o n file documented as of this encounter Last Filed Vital Signs Vital Sign Reading Time Taken Comments Blood Pressure 117/61 10/10/2023 1617 EST Pulse 77 10/10/2023 1617 EST Temperature 36.3 ??C (97.3 ??F) 10/10/2023 1617 EST Respiratory Rate 16 10/10/2023 1617 EST Oxygen Saturation 99% 10/10/2023 1617 EST Inhaled Oxygen Concentration - - Weight 99.2 kg (218 lb 11.2 oz) 10/10/2023 1617 EST Height - - Body Mass Index 37.54 09/08/2023 1708 EDT documented in this encounter [...] Progress Notes * Dana Padilla MD - 10/10/2023 1630 EST Thrombosis & Hemostasis Program (THP) Follow Up Visit Date of Service: 10/10/2023 CC: Follow-up Assessment: Hypercoagulable syndrome from cirrhosis of 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 She is doing well on lovenox 60 mg once a day without recent major bleeding events thankfully. The current dose of lovenox is holding her from having recurrent thrombosis. 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 This is stable. Plan: -continue lovenox 60 mg/d -no specific labs needed from my standpoint. -she should be having upcoming EGD with Dr. Moseley - Return in 6 months with Lesly Hu Please contact my office with questions/concerns. Problem List: Patient Active Problem List Diagnosis ??? Acute pulmonary edema (HCC-CMS) Mild interstitial edema noted on chest x-ray, July,. Plan: patient has been notified. Repeat chest x-ray to be done in September 2022. Patient aware. CHENTE Alcantar ??? Peptic ulcer disease with hemorrhage EGD March 2021:esophagitis and pyloric channel ulcer. Oct 08, 2021: 9-day admission w/ 3 separate EGDs and several units RBC tx. Large posterior duodenalulcer and pyloric ulcer extending into duodenal bulb +mild portal gastropathy as likely sources. RxBID Protonix for 3 months then daily. -01-13-22: EGD NORMAL (Pradip) ??? Secondary hypercoagulable state (HCC-CMS) PVT 2020 witih [...] ulcer related UGI bleeding. Anticoagulation not started. GI felt if pain continues and/or worsens, would recommend repeat CT Angio A/P to assess for possible bowel ischemia due to venous congestion as asource of her pain. -Lovenox 40 mg/d started 10/27/21 and plan made to do MRA to better [...] to 60 mg/d with rising hemoglobin and subsequently changed to apixaban 2.5 mg BID -02-09: admitted with syncope/dizziness and found to have ?bleeding into her nonocclusive PVT. H/H stable. apixaban held. LE US during this admission neg for DVT. Apixaban stopped due to bleeding - Bilat LE U/S for surveillance May 2022 also neg for deep vein thrombosis. -Nov 2022: extension of PVT to SMV thrombosis, resumed lovenox 60 mg/d for residential anticoagulation - April 2023: admitted for hematemesis due to Shahnaz-Quezada tear. Lovenox 60 mg daily continued ??? Other cirrhosis of liver (HCC-CMS) -NAFLD related cirrhosis with history of decompensation, chronic portal htn, hepatic encephalopathy, small esophageal varices on EGD in 2018, thrombocytopenia/hypersplenism, portal gastropathy -s/p partial splenic embolization (09/28/21) -portal vein thrombosis -Hep C Past provider: Dr. Ijeoma Smith, GI Department in [facility] for long-standing decompensated liver cirrhosis ??? MUSA (acute kidney injury) (HCC-CMS) ??? Chronic insomnia ??? Depression ??? Thrombocytopenia (HCC-CMS) Took lusutrombopag 3 mg once [...] Remaining spleen hypertrophied on CT January 2022 ??? Chronic respiratory failure with hypoxia (HCC-CMS) ??? 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 Hypersplenism ??? Frequent falls ??? COPD (chronic obstructive pulmonary disease) (HCC-CMS) (HCC) ??? HUEY (obstructive sleep apnea) ??? Obesity, Class II, BMI 35-39.9 Lost about 80 lbs over last 2 years - weight was as high at 250-60 ??? Hypothyroidism ??? Chronic pain syndrome Intolerant of Lyrica, Robaxin. Reportedly unable to take acetaminophen due to thrombocytopenia history. Unable to take NSAIDs due to renal insufficiency history. ??? Drug-seeking behavior Per Dr Amelia Tijerina and notes from [facility] patient misconstrued information to several providers about multiple concurrent opiate prescription. -IR embolization 09/28/21 for thrombocytopenia. Counts raised from 30s to 200K ??? Abdominal wall hernia ??? Allergic rhinitis ??? Pancytopenia (HCC) -bone marrow biopsy at [facility] in 2013: maturing trilineage hematopoiesis with no underlying hematopoietic abnormalities ??? Mild persistent asthma without complication ??? Nephrolithiasis HPI: No abnormal bleeding, s / sx deep vein thrombosis or PE . occ gets ankle swelling. Appetite is poor. Following with Dr. Moseley. She will be having egd at some point. She is having serious issues with her housing in [place] as in the narrative. Social History: Patient reports that she has been smoking cigarettes. She has a 8.8 pack-year smoking history. She has never used smokeless tobacco. She reports that she does not drink alcohol and does not use drugs. Social History Social History Narrative Rents a room from friends in [place] and lives there with her dog and 2 roomates. One roommate owns the home, and apparently has severe often uncontrolled bipolar disorder--quite often manic or depressed. The other roommate is the hospice clinical supervisor's boyfriend; he is in his 80's and has physical disabilities and in on probation/parole after incarceration; history of pedophilia; he is a sex offender and is demanding and inappropriate with Tara at times. Tara has a son who moved to [facility] in 2022. She also has 3 grandchildren who she saw regularly until they moved to [place] with their dad, Tara' son. She is disabled. 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 She has a beloved dog, a dakshau who is 10 years old (in 2022) that was gifted to her by Haydee Murrieta when she was living in the [facility]. She had once helped Haydee Murrieta after Haydee fell; Haydee lassiterded Tara and gave her this dog. Medications: Current Outpatient Medications Medication ??? albuterol 90 [...] ??? ondansetron (ZOFRAN) 4 mg tablet ??? oxyCODONE (ROXICODONE) 5 mg immediate release tablet [...] and reglan [metoclopramide hcl]. Physical Exam: Vitals: 10/10/23 1617 BP: 117/61 Pulse: 77 Resp: 16 Temp: 36.3 ??C (97.3 ??F) TempSrc: Skin SpO2: 99% Weight: 99.2 kg (218 lb 11.2 oz) Estimated body mass index is 37.54 kg/m?? as calculated from the following: Height as of 09/08/23: 162.6 cm (64). Weight as of this encounter: 99.2 kg (218 lb 11.2 oz). Wt Readings from Last 3 Encounters: 10/10/23 99.2 kg (218 lb 11.2 oz) 09/21/23 (!) 101 kg (222 lb 9.6 oz) 09/13/23 100.5 kg (221 lb 9.6 oz) BMI Readings from Last 3 Encounters: 10/10/23 37.54 kg/m?? 09/21/23 38.21 kg/m?? 09/13/23 38.04 kg/m?? Gen: Alert and oriented x3. No distress. No leg edema Labs: Complete Blood Count Lab Results Component Value Date WBC 3.47 (L) 09/14/2023 WBC 3.53 (L) 09/09/2023 WBC 3.01 (L) 09/08/2023 RBC 4.16 09/14/2023 HGB 12.9 09/14/2023 HGB 12.4 09/09/2023 HGB 11.9 09/08/2023 HCT 37.5 09/14/2023 MCV 90 09/14/2023 PLT 83 (L) 09/14/2023 PLT 92 (L) 09/09/2023 PLT 92 (L) 09/08/2023 MPV 10.4 09/14/2023 RDWCV 13.9 09/14/2023 Lab Results Component Value Date DIFFTYPE Auto 09/14/2023 NEUTROABS 2.73 09/14/2023 ABSBAND 0.02 04/23/2019 LYMPHSABS 0.37 (L) 09/14/2023 MONOSABS 0.32 09/14/2023 EOSABS 0.03 09/14/2023 BASOSABS 0.02 08/29/2019 MYELOABS 0.02 10/21/2018 Anemia Workup (if applicable) Lab Results Component Value Date IRON 40 05/08/2022 TIBC 427 05/08/2022 FERRITIN 129 05/08/2022 FOLATE 7.5 02/11/2022 [id number] 386 07/28/2022 Chemistries Lab Results Component Value Date NA 141 09/14/2023 K 3.9 09/14/2023 CL 108 09/14/2023 CO2 22 09/14/2023 BUN 11 09/14/2023 CREATININE 0.98 09/14/2023 CALCGFR 65 09/14/2023 CALCIUM 8.9 09/14/2023 CALCCA 9.2 07/28/2021 MG 1.7 09/09/2023 PHOS 3.0 09/09/2023 LDH 320 06/28/2019 ALKPHOS 134 (H) 09/09/2023 AST 48 (H) 09/09/2023 ALT 32 09/09/2023 GGT 47 (H) 11/09/2018 CONJBILI 0.0 12/14/2022 UNCONJBILI 0.2 12/14/2022 BILIRUBIN Neg 09/20/2017 TBIL 1.1 09/09/2023 TP 6.9 09/09/2023 LABALBU 3.8 09/09/2023 AGRATIO 1.2 09/09/2023 LIPASE 114 09/07/2023 Cardiovascular No results found for: SCRP Lab Results Component Value Date CHOL 143 [...] 10/27/2021 DRVVT 38.5 10/27/2021 SCT 39.6 10/27/2021 Imaging: Results have been documented within the past 5 years for the following orders US LOWER VENOUS DUPLEX Interpretation Summary ??? No evidence of deep or superficial venous thrombosis in the right lower extremity. ??? No evidence of deep or superficial venous thrombosis in the left lower extremity. CT ABDOMEN PELVIS W CONTRAST Narrative CT [...] osseous lesion. Degenerative changes of the spine. Lathe Turner: No additional findings. Impression 1. No acute [...] orders TRANSTHORACIC ECHO (TTE) COMPLETE Interpretation Summary ??? Left??Ventricle: Left ventricular systolic function was hyperdynamic with an ejection fraction =>65%. The estimated left ventricular ejection fraction by biplane Crockett's method was 67 %. ??? Right??Ventricle: Right ventricular systolic function was normal. I spent 30 minutes related to this patient's care today, which includes time with the patient, timereviewing medical records and reviewing imaging reports and laboratory results, time updating the chart information, and time composing this note. Dana Padilla MD, MSc supervisor ship maintenance services Director, Thrombosis and Hemostasis Program CC: Emigdio Veronica III documented in this encounter Plan of Treatment Upcoming Encounters Date Type Department Care Team (Late st Contact Info) Description 01/04/2025 13:00 EST Office Visit [facility] Ophthalmology - [address] [phone] Gagandeep Rome MD [address] [place] [address] 5 [place] [address] 02/11/2025 13:30 EDT Telemedicine [facility] Hematology & Oncology [address] [phone] Dana Padilla MD [address] [place] [address] 2 [place] [phone] documented as of this encounter Visit Diagnoses Diagnosis Secondary hypercoagulable state (HCC-CMS)- Primary Secondary hypercoagulable state Thrombocytopenia (HCC-CMS) Thrombocytopenia, unspecified Other cirrhosis of liver (HCC-CMS) documented in this encounter Care Teams Polisher And Buffer Relationship Specialty Start Date End Date Emigdio Veronica MD [address] [place] [phone] PCP - General Internal Medicine - Primary Care 05/22/20 02/21/24 Izabella Snowden, LABORER POULTRY HATCHERY 1 [facility], 3rd [place] [phone] Cashier Payments Received 02/21/23 05/03/24 documented as of this encounter
--- OUTSIDE RECORDS SUMMARY | 2024-11-22 16:52 | XMS_ITS | Encounter Summary ---
Author Organization [facility] Address [address] [place] [address] Care Team Providers Care Debt Management Counselor Name Role Phone Emigdio Veronica MD Primary Care Provider + Izabella Snowden [facility] Unavailable [phone] Reason for Visit * Reason Onset Date Comments Appointment Related 10/13/2023 Encounter Details Date Type Department Care Team (Late st Contact Info) Description 10/13/2023 Telephone [facility] Hematology & Oncology - [address] [phone] Dana Padilla MD 111 [facility], [facility] 2 [place] [address] Appointment Related Social History Tobacco [...] 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 [...] encounter Miscellaneous Notes * Telephone Encounter - Megan Bustamante - 10/13/2023 1431 EST Printed & mailed reminder for March 2024 RS appt per Valerie documented in this encounter Plan of Treatment Upcoming Encounters Date Type Department Care Team (Late st Contact Info) Description 01/04/2025 13:00 EST Office Visit [facility] Ophthalmology - [address] [phone] Gagandeep Rome MD [address] [place] [address], [facility] 5 [place] [phone] 02/11/2025 13:30 EDT Telemedicine [facility] Hematology & Oncology [address] [phone] Dana Padilla MD [address] [place] [address], [facility] 2 [place] [phone] documented as of this encounter Visit Diagnoses Not on filedocumented in this encounter Care Teams Debt Management Counselor Relationship Specialty Start Date End Date Emigdio Veronica MD 2 [place] [address] PCP - General Internal Medicine - Primary Care 05/22/20 02/21/24 Izabella Snowden, RESEARCH MICROBIOLOGIST 1 [facility], 3rd [place] [address] Technical Support Assistant 02/21/23 05/03/24 documented as of this encounter
--- OUTSIDE RECORDS SUMMARY | 2024-11-22 16:52 | XMS_ITS | Encounter Summary ---
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 No answer, CM left VM for patient. Plan: If no reply-CM will attempt another outreach to patient next week. CM will follow-up in 7 days DARNELL MCCORMICK 09/27/2023 13:40 documented in this encounter Plan of Treatment Upcoming Encounters Date Type Department Care Team (Late st Contact Info) Description 01/04/2025 13:00 EST Office Visit [facility] Ophthalmology - [address] [phone] Gagandeep Rome MD [address] [place] [address], [place] 5 [place] [phone] 02/11/2025 13:30 EDT Telemedicine [facility] Hematology & Oncology - [address] [phone] Dana Padilla MD [address] [place] [address], [address] 2 [place] [phone] documented as of this encounter Visit Diagnoses Not on filedocumented in this encounter Care Teams Director Recreation Center Relationship Specialty Start Date End Date Emigdio Veronica MD 2 [place] [phone] PCP - General Internal Medicine - Primary Care 05/22/20 02/21/24 Izabella Snowden, [facility] 1 [facility], 3rd [place] [address] Welt Rougher 02/21/23 05/03/24 documented as of this encounter
--- OUTSIDE RECORDS SUMMARY | 2024-11-22 16:52 | XMS_ITS | Encounter Summary ---
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 TOPIC OF CONVERSATION: ??? Reviewed assessment and plan from previous visit with patient. ??? Engaged patient in conversation related to positive behavior change, self- management, goal setting and action planning using motivational interviewing and active listening. ??? Updated patient that Dr. Veronica sent letter to [facility] on 10-05-23. Patient has not yet heard anything back from them. Encouraged patient to call [facility] today which she plans to do. ??? Patient received paperwork from regarding obtaining a new Social Security card. Patient has completed and plans to mail out today as well. Prioritized Patient Identified Goals: 1. Patient will follow up with Grapple Yarder Operator in the next to 2 weeks to begin housing applications for the [facility] area. ?? Achievement towards goals: In progress 2. Patient will contact [facility] today to apply for emergency housing. ?? Achievement towards goals: In progress Plan: CM will follow-up in 7 days DARNELL MCCORMICK 10/07/2023 12:30 documented in this encounter Plan of Treatment Upcoming Encounters Date Type Department Care Team (Late st Contact Info) Description 01/04/2025 13:00 EST Office Visit [facility] Ophthalmology - [address] [phone] Gagandeep Rome MD 111 [facility], [address] 5 [place] [phone] 02/11/2025 13:30 EDT Telemedicine [facility] Hemat[facility] & Oncology - [address] [phone] Dana Padilla MD 111 [facility], Level 2 [place] [phone] documented as of this encounter Visit Diagnoses Not on filedocumented in this encounter Care Teams Social Services Coordinator Relationship Specialty Start Date End Date Emigdio Veronica MD 2 [place] [address] PCP - General Internal Medicine - Primary Care 05/22/20 02/21/24 Izabella Snowden, [facility] 1 [facility], 3rd [place] [address] Pellet Mill Operator 02/21/23 05/03/24 documented as of this encounter
--- OUTSIDE RECORDS SUMMARY | 2024-11-22 16:52 | XMS_ITS | Encounter Summary ---
Author Organization [facility] Address [address] [place] [address] Care Team Providers Care House Father Name Role Phone Emigdio Veronica MD Primary Care Provider + Izabella Snowden [facility] [phone] None, Provider Primary Care Provider Gabriel Wei Primary Care Provider Mirna Guerrero Primary Care Provider + Reason for Visit * Reason Comments Med Change Request Encounter Details Date Type Department Care Team (Late st Contact Info) Description 11/03/2023 [facility] Adult Primary Care - [place] [address] [place] [address] Emigdio Veronica MD 2 [place] [address] Med Change Request Social History [...] 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 540 Tablet 1 11/04/2023 4 documented in this encounter Miscellaneous Notes * Telephone Encounter - Fatoumata Joseph RN - 11/04/2023 1158 EST Requested Prescriptions Pending Prescriptions Disp Refills hydrOXYzine (ATARAX) 25 mg tablet [Pharmacy Med Name: HYDROXYZINE HCL 25 MG TABLET] 540 Tablet 1 Sig: TAKE 1-2 TABLETS BY MOUTH 3 TIMES DAILY NEEDED FOR ANXIETY. [facility]/pharmacy #[id number] - [address] Confirmed Pharmacy? Yes Patient out of medication? Unknown How many pills does patient have left? unknown Last Refill Date: 10/11/23 Refills left? (explain exceptions requiring early refill) No Recent Visits Date Type Provider Dept 09/21/23 Office Visit Emigdio Veronica III, MD [facility] Adult Prim Care 09/13/23 Office Visit Emigdio Veronica III, MD [facility] Adult Prim Care 09/07/23 Office Visit Scottie Campuzano PA-C [facility] Adult Prim Care 08/25/23 Office Visit Ruth Ortez MD PhD [facility] Adult Prim Care 07/13/23 Office Visit Emigdio Veronica III, MD [facility] Adult Prim Care 06/29/23 Office Visit Scott[facility] Campuz[facility] 06/10/23 Office Visit Emigdio Veronica III, MD [facility] Adult Prim Care 05/26/23 Office Visit Scottie Campuzano PA-C [facility] Adult Prim Care 05/05/23 Office Visit Emigdio Veronica III, MD [facility] Adult Prim Care 04/26/23 Office Visit Scottie Campuzano PA-C [facility] Adult Prim Care Showing recent visits within past 540 days with a meds authorizing provider and meeting all other requirements Future Appointments Date Type Provider Dept 12/26/23 Appointment Emigdio Veronica III, MD [facility] Adult Prim Care Showing future appointments within next 150 days with a meds authorizing provider and meeting all other requirements Future appointment: Already Scheduled FATOUMATA JOSEPH RN 11/04/2023 11:58 documented in this encounter Plan of Treatment Upcoming Encounters Date Type Department Care Team (Late st Contact Info) Description 01/04/2025 13:00 EST Office Visit [facility] Ophthalmology - [address] [phone] Gagandeep Rome MD [address] [place] [address], [facility] 5 [place] [address] 02/11/2025 13:30 EDT Telemedicine [facility] Hematology & Oncology [address] [phone] Dana Padilla MD [address] [place] [address], Level [address] [place] [phone] documented as of this encounter Visit Diagnoses Not on filedocumented in this encounter Discontinued Medications Medication Sig Discontinue Reason Start Date End Da te hydrOXYzine (ATARAX) 25 mg tablet Take 1-2 Tablets by mouth 3 times daily as needed for Anxiety. 10/11/2023 11/04/2023 documented as of this encounter Care Teams House Father Relationship Specialty Start Date End Date Emigdio Veronica MD 2 [place] [phone] PCP - General Internal Medicine - Primary Care 05/22/20 02/21/24 None, Provider PCP - General 02/24/24 03/18/24 Gabriel Gandara PA PCP - General 03/19/24 09/11/24 Mirna Guerrero PA [address] [place] [address] PCP - General 09/12/24 Izabella Snowden, BEATER LEAD 1 [facility], 3rd [place] [phone] Calculus Teacher 02/21/23 05/03/24 documented as of this encounter
--- OUTSIDE RECORDS SUMMARY | 2024-11-22 16:52 | XMS_ITS | Encounter Summary ---
Author Organization [facility] Address [address] [place] [address] Care Team Providers Care Ticker Installer Name Role Phone Emigdio Veronica MD Primary Care Provider + Izabella Snowden [facility] Unavailable None, Provider Primary Care Provider Gabriel Wei Primary Care Provider Mirna Guerrero Primary Care Provider + Reason for Visit * Reason Onset Date Comments Appointment Related 11/09/2023 Encounter Details Date Type Department Care Team (Late st Contact Info) Description 11/09/2023 Telephone [facility] Urology - [address] [id number] Lon Ortez MD [address] [facility], Level 5 [place] [address] Appointment Related Social History Tobacco [...] 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 on file [...] Answer Entry Date Author No 09/08/2023 17:08 jA Hall RN documented in this encounter Miscellaneous Notes * Telephone Encounter - Cris Diggs - 11/09/2023 1148 EST LM for Pt to call and reschedule 11/01 appt req call back documented in this encounter Plan of Treatment Upcoming Encounters Date Type Department Care Team (Late st Contact Info) Description 01/04/2025 13:00 EST Office Visit [facility] Ophthalmology - [address] [phone] Gagandeep Rome MD [address] [place] [address], [facility] 5 [place] [address] 02/11/2025 13:30 EDT Telemedicine [facility] Hematology & Oncology [address] [phone] Dana Padilla MD [address] [place] [address], [facility] 2 [place] [address] documented as of this encounter Visit Diagnoses Not on filedocumented in this encounter Care Teams Ticker Installer Relationship Specialty Start Date End Date Emigdio Veronica MD 2 [place] [phone] PCP - General Internal Medicine - Primary Care 05/22/20 02/21/24 None, Provider PCP - General 02/24/24 03/18/24 Gabriel Gandara PA PCP - General 03/19/24 09/11/24 Mirna Guerrero PA [address] [place] [address] PCP - General 09/12/24 Izabella Snowden, CONSULTING PROPERTY MANAGER 1 [facility], 3rd [place] [address] Outer Diameter Grinder 02/21/23 05/03/24 documented as of this encounter
--- OUTSIDE RECORDS SUMMARY | 2024-11-22 16:52 | XMS_ITS | Encounter Summary ---
Author Organization [facility] Address [address] [place] [address] Care Team Providers Care Nutrition Director Name Role Phone Emigdio Veronica MD Primary Care Provider + Izabella Snowden [facility] Unavailable [phone] Reason for Visit * Reason Comments Medications Refill Encounter Details Date Type Department Care Team (Late st Contact Info) Description 10/01/2023 Refill [facility] Primary Care 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 42 Tablet 10/01/2023 3 documented in this encounter Miscellaneous Notes * Telephone Encounter - Enid Rudd RN - 10/01/2023 1639 EST Spoke to pt and relayed message from Tere Ramirez NP. Pt will f/u with PCP for future refills. Patient verbalizes understanding, agrees to plan of care, no barriers to communication. * Telephone Encounter - Tere Ramirez NP - 10/01/2023 1553 EST Bridge sent in, please ensure she follows up with her PCP prior to running out again. Tere Ramirez NP 10/01/2023 15:53 * Telephone Encounter - Cris Vann - 10/01/2023 1427 EST Pt called requesting this rx, states she does not have enough for weekend. documented in this encounter Plan of Treatment Upcoming Encounters Date Type Department Care Team (Late st Contact Info) Description 01/04/2025 13:00 EST Office Visit [facility] Ophthalmology - [address] [phone] Gagandeep Rome MD [address] [place] [address], [facility] 5 [place] [phone] 02/11/2025 13:30 EDT Telemedicine [facility] Hematology & Oncology - [address] [phone] Dana Padilla MD [address] [place] [address], [facility] 2 [place] [phone] documented as of this encounter Visit Diagnoses Not on filedocumented in this encounter Discontinued Medications Medication Sig Discontinue Reason Start Date End Da te hydrOXYzine (ATARAX) 25 mg tablet Take 1-2 Tablets by mouth 3 times daily as needed for Anxiety. 09/17/2023 10/01/2023 documented as of this encounter Care Teams Nutrition Director Relationship Specialty Start Date End Date Emigdio Veronica MD 2 [place] [phone] PCP - General Internal Medicine - Primary Care 05/22/20 02/21/24 Izabella Snowden, [facility] 1 [facility], 3rd [place] [phone] Cutting And Splicing Supervisor 02/21/23 05/03/24 documented as of this encounter
--- OUTSIDE RECORDS SUMMARY | 2024-11-22 16:52 | XMS_ITS | Encounter Summary ---
Author Organization [facility] Address [address] [place] [address] Care Team Providers Care Medication Specialist Name Role Phone Emigdio Veronica MD Primary Care Provider + Izabella Snowden [facility] Unavailable [phone] Reason for Visit * Reason Onset Date Comments Medications Refill 10/20/2023 Encounter Details Date Type Department Care Team (Late st Contact Info) Description 10/20/2023 Refill [facility] Adult Primary Care - [place] 2 [place], [place] [phone] Emigdio Veronica MD 2 [place] [address] Medications Refill Social History Tobacco [...] 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 Daily Max: 15 mg 84 Tablet 10/25/2023 11/17/2023 documented in this encounter Miscellaneous Notes * Telephone Encounter - Sally Jorge - 10/20/2023 1420 EST Requested Prescriptions Pending Prescriptions Disp Refills ??? oxyCODONE (ROXICODONE) 5 mg immediate release tablet 84 Tablet 0 Sig: Take 1 Tablet by mouth 3 times daily as needed for up to 28 days for Pain. Daily Max: 15 mg [facility]/pharmacy #[id number] - [address] Confirmed Pharmacy? Yes Patient out of medication? No How many pills does patient have left? unknown Last Refill Date: 09.27.23 Refills left? (explain exceptions requiring early refill) No Recent Visits Date Type Provider Dept 09/21/23 Office Visit Emigdio Veronica III, MD [facility] Adult Prim Care 09/13/23 Office Visit Emigdio Veronica III, MD [facility] Adult Prim Care 09/07/23 Office Visit Scottie Campuzano PA-C [facility] Adult Prim Care 08/25/23 Office Visit Ruth Ortez MD PhD [facility] [place] Adult Prim Care 07/13/23 Office Visit Emigdio Veronica III, MD [facility] [place] Adult Prim Care 06/29/23 Office Visit Scottie Campuzano PA-C [facility] [place] Adult Prim Care 06/10/23 Office Visit Emigdio Veronica III, MD [facility] [place] Adult Prim Care 05/26/23 Office Visit Scottie Campuzano PA-C [facility] [place] Adult Prim Care 05/05/23 Office Visit Emigdio Veronica III, MD [facility] [place] Adult Prim Care 04/26/23 Office Visit Scottie Campuzano PA-C [facility] Adult Prim Care Showing recent visits within past 540 days with a meds authorizing provider and meeting all other requirements Future Appointments Date Type Provider Dept 12/26/23 Appointment Emigdio Veronica III, MD [facility] Adult Prim Care Showing future appointments within next 150 days with a meds authorizing provider and meeting all other requirements Future appointment: Already Scheduled Sally Jorge 10/20/2023 14:21 documented in this encounter Plan of Treatment Upcoming Encounters Date Type Department Care Team (Late st Contact Info) Description 01/04/2025 13:00 EST Office Visit [facility] Ophthalmology - [address] [phone] Gagandeep Rome MD [address] [place] [address], [facility] 5 [place] [phone] 02/11/2025 13:[address] [facility] Hematology & Oncology [address] [address] Dana Padlila MD [address] [place] [address], Level 2 [place] [phone] documented as of this encounter Visit Diagnoses Not on filedocumented in this encounter Discontinued Medications Medication Sig Discontinue Reason Start Date End Da te oxyCODONE (ROXICODONE) 5 mg immediate release tablet Take 1 Tablet by mouth 3 times daily as needed for up to 28 days for Pain. Daily Max: 15 mg Reorder 09/27/2023 10/20/2023 documented as of this encounter Care Teams Medication Specialist Relationship Specialty Start Date End Date Emigdio Veronica MD 2 [place] [phone] PCP - General Internal Medicine - Primary Care 05/22/20 02/21/24 Izabella Snowden, [facility] 1 [facility], 3rd [place] [address] Sailing Master 02/21/23 05/03/24 documented as of this encounter
--- OUTSIDE RECORDS SUMMARY | 2024-11-22 16:52 | XMS_ITS | Encounter Summary ---
Author Organization [facility] Address [address] [place] [address] Care Team Providers Care Tariff Compiling Clerk Name Role Phone Emigdio Veronica MD Primary Care Provider + Izabella Snowden [facility] Unavailable Reason for Referral * PT/OT/ST (Routine/Next Available) - Closed Specialty Diagnoses / Procedures Referred By Serene huitron Referred To Contact Diagnoses Chronic left shoulder pain Emigdio Veronica MD Phone: tel: fax: Referral ID Status Reason Start Date Expiration Date V isits Requested Visits Authorized [id number] Closed Specialty Services Required 11/18/2023 1 1 Question Answer Reason for Request: Acute on chronic left shoulder pain SITE [facility] Physical Therapy in [place] * Radiology Services (Routine/Next Available) - Authorization Not Required Specialty Diagnoses / Procedures Referred By Serene t Referred To Contact Diagnoses Chronic left shoulder pain Procedures XR SHOULDER LEFT 2 OR MORE VIEWS Emigdio Veronica MD Phone: tel: fax: [facility] Referral ID Status Reason Start Date Expiration Date Visits Requested Visits Authorized [id number] Authorization Not Required 3 1 1 Reason for Visit * Reason Comments Shoulder Pain Encounter Details Date Type Department Care Team (Late st Contact Info) Description 11/17/2023 16:00 EST Office Visit [facility] Adult Primary Care - [place] [address] [place] [address] Emigdio Veronica MD [address] [place] [address] Chronic left shoulder pain (Primary Dx); Chronic pain syndrome; Other cirrhosis of liver (HCC-CMS); Housing insecurity Social History Tobacco Use Types Packs/Day Years [...] 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 Not on file Not o n file documented as of this encounter Last Filed Vital Signs Vital Sign Reading Time Taken Comments Blood Pressure 100/51 11/17/2023 1604 EST Pulse 84 11/17/2023 1604 EST Temperature 36.4 ??C (97.5 ??F) 11/17/2023 1604 EST Respiratory Rate 20 11/17/2023 1604 EST Oxygen Saturation 95% 11/17/2023 1604 EST Inhaled Oxygen Concentration - - Weight 105 kg (231 lb 6.4 oz) 11/17/2023 1604 ES T Height - - Body Mass Index 39.72 09/08/2023 1708 EDT documented in this encounter [...] Refills Last Filled Start Date End Date gabapentin (NEURONTIN) 300 mg capsule Take two capsules in the AM, one capsule in the afternoon and two capsules in the evening 450 Capsule 1 11/17/2023 oxyCODONE (ROXICODONE) 5 mg immediate release tablet Take 1 Tablet by mouth 3 times daily as needed for up to 28 days for Pain. Daily Max: 15 mg 84 Tablet 11/18/2023 4 documented in this encounter Progress Notes * Emigdio Veronica III, MD - 11/17/2023 1600 EST Tara Yun is a 63 y.o. female with a PMHx of pancytopenia, COPD, chronic pain syndrome, livercirrhosis PRIMARY CARE PROVIDER: Emigdio Veronica III CHIEF COMPLAINT: No chief complaint on file. SUBJECTIVE: Tara Yun presents today for a follow-up visit. She reports an acute complaint of left shoulder pain. She states the pain has been present over thelateral and dorsal aspect of her left shoulder for the last 6 weeks. She reports the pain developedacutely without any appreciated inciting event or trauma. She notes the pain is relieved by rest and is primarily triggered by shoulder abduction and shoulder rotation. She denies any swelling or skin changes around the shoulder. She notes she has increased her previous dosage of gabapentin from 300 mg 3 times daily to 600 mg in the a.m., 300 mg in the afternoon and 600 mg at night to substantial relief of her pain. She confirms compliance with her previously prescribed oxycodone at 5 mg 3 times daily as needed. Regards to her ongoing housing issues she reports that she has officially signed for a lease in a studio apartment in [place], [place] in the [facility]. She is planning to retain her primary care services here despite the increased travel distance. She is working with friends to secure a car. She has noticed some increased lower extremity edema and increase in weight by over 10 pounds over the last week. As previously discussed she has escalated her furosemide therapy from 40 mg daily to 60 mg daily for the last few days. We discussed dose reducing her furosemide once her weights returned back to baseline. ROS as above Medications and history reviewed. [...] mL solution levothyroxine (SYNTHROID) 25 mcg tablet naloxone (NARCAN) 4 mg/actuation nasal spray ondansetron [...] mL (0.083 %) nebulizer solution OBJECTIVE: BP 100/51 Pulse 84 Temp 36.4 ??C (97.5 ??F) (Skin) Resp 20 Wt (!) 105 kg (231 lb 6.4 oz) SpO2 95% BMI 39.72 kg/m?? Gen: Well appearing middle-age obese female, NAD HEENT: EOMI, PERRL, oropharynx moist, conjunctiva pink, no scleral injection/ icterus Extrem: Trace bilateral lower extremity edema Skin: No rashes or erythema, intact Musk: Normal muscle tone and bulk, gait within normal limits, restricted ROM of left shoulder, patient reports pain with active and passive abduction of her left shoulder above 75 degrees, drop test negative, no pain on direct shoulder palpation, pain noted on internal rotation of the shoulder, no pain noted on external rotation Neuro: A&Ox3, CN II through XII grossly intact Recent Labs/Imaging: Reviewed in epic ASSESSMENT and PLAN: Diagnoses and all orders for this visit: Chronic left shoulder pain: History and exam consistent with rotator cuff pathology as well as likely underlying shoulder osteoarthritis. Cannot fully rule out impingement syndrome in the left shoulder and we will pursue plain films to better assess the status of her shoulder joint. She is open to [facility] care with a physical therapist close to her new apartment in [place] [facility]. - XR SHOULDER LEFT 2 OR MORE VIEWS; Future - AMB CONS/FOLLOW UP PHYSICAL THERAPY - OUTSIDE OF NETWORK; Future Chronic pain syndrome: Improved overall pain control with dose escalation of gabapentin. -Advised patient against further unilateral changes to her pain medication -Will officially dose escalate gabapentin from 300 mg 3 times daily to 600 mg in the morning, 300 mg in the afternoon and 600 mg in the evening. Refill provided for gabapentin today. -Patient due for a refill of her longstanding oxycodone prescription at 5 mg 3 times daily as needed tomorrow. Refill placed today. Other cirrhosis of liver (HCC-CMS): Patient notes increased swelling and weights over the last week. -Continue furosemide 60 mg daily. -Encouraged patient to track daily weights and to dose reduce her furosemide back to 40 mg once herweights return within 5 pounds of her baseline. -Encourage patient to reach out to our office if she remains on the furosemide 60 mg dose for longer than 1 week. Would have a low threshold to obtain a BMP in that scenario to ensure stable renal function. Housing insecurity: Patient reports that she has secured a new apartment in [facility] and will be moving in on December 22. -Encouraged close follow-up with social work -Discussed that the patient will still be required to be seen in our clinic every 84 days as required by state law for opiate management. Discussed that transferring to another primary care provider closer to her new home should be considered if traveling to our office becomes difficult. Health Care Maintenance Health Maintenance Topic Date Due Asthma Action Plan Never done Lung Function Test (Spirometry) Never done Copd Action Plan Never done Advance Directive Never done Preventive Care Visit Never done Cervical Cancer Screening Never done Colorectal Cancer Screening Never done Breast Cancer Screening Never done Pill Count Never done Urine Drug Screen 04/29/2022 Depression Screening 02/25/2024 Social Determinants Of Health (SDOH) 04/29/2024 Prescription Agreement 07/13/2024 Opioid Informed Consent 09/13/2024 Review Of Systems Adverse Effects 09/13/2024 Functional Assessment 09/13/2024 Current Opioid Misuse Measurement 09/13/2024 [place] Prescription Monitoring System 09/14/2024 Pneumococcal Immunization (4 - PPSV23 or PCV20) 2025 Lipid Profile Screening (Cholesterol) 04/16/2027 Tetanus (Adult) Immunization 03/17/2029 RSV Immunization (60+ Years) Completed HIV Screening Completed Shingles Immunization Completed Hepatitis C Screen Completed Influenza Immunization (Adult) Completed COVID-19 Vaccine Completed Pertussis (Adult) Immunization Discontinued F/u: No follow-ups on file. I spent a total of 35 minutes with this patient today face to face, in chart review and in documentation and 30 minutes of that time was spent on education and counseling for left shoulder pain, chronic pain syndrome, housing insecurity, cirrhosis. Some of this note was transcribed with [employer] dictating software. While it was proofread, it may still contain unnoticed grammatical or word errors due to incorrect transcribing. Emigdio Veronica III, MD 11/18/2023 10:59 documented in this encounter Plan of Treatment Upcoming Encounters Date Type Department Care Team (Late st Contact Info) Description 01/04/2025 13:00 EST Office Visit [facility] Ophthalmology - [address] [address] Gagandeep Rome MD [address] [place] [address], [facility] 5 [place] [address] 02/11/2025 13:30 EDT Telemedicine [facility] Hematology & Oncology [address] [address] Dana Padilla MD [address] [place] [address], [facility] 2 [place] [address] Scheduled Orders Name Type Priority Associated Diagnoses Orde r Schedule XR SHOULDER LEFT 2 OR MORE VIEWS Imaging Routine Chronic left shoulder pain 1 Occurrences starting 11/17/2023 until 05/18/2025 Scheduled Referrals Name Type Priority Associated Diagnoses Order Schedule AMB CONS/FOLLOW UP PHYSICAL THERAPY - OUTSIDE OF NETWORK Outpatient Referral Routine/Next Available Chronic left shoulder pain Expected: 11/24/2023 (Approximate), Expires: 11/17/2024 documented as of this encounter Visit Diagnoses Diagnosis Chronic left shoulder pain- Primary Pain in joint, shoulder region Chronic pain syndrome Other cirrhosis of liver (HCC-CMS) Housing insecurity documented in this encounter Discontinued Medications Medication Sig Discontinue Reason Start Date End Da te gabapentin (NEURONTIN) 300 mg capsule TAKE 1 CAPSULE BY MOUTH THREE TIMES A DAY Reorder 08/31/2023 11/17/2023 oxyCODONE (ROXICODONE) 5 mg immediate release tablet Take 1 Tablet by mouth 3 times daily as needed for up to 28 days for Pain. Daily Max: 15 mg Reorder 10/25/2023 11/17/2023 documented as of this encounter Care Teams Tariff Compiling Clerk Relationship Specialty Start Date End Date Emigdio Veronica MD 2 [place] [phone] PCP - General Internal Medicine - Primary Care 05/22/20 02/21/24 Izabella Snowden, [facility] 1 [facility], 3rd [place] [phone] Sr. Social Media & Mobile Manager 02/21/23 05/03/24 documented as of this encounter
--- OUTSIDE RECORDS SUMMARY | 2024-11-22 16:52 | XMS_ITS | Encounter Summary ---
Author Organization [facility] Address [address] [place] [address] Care Team Providers Care Contracts Officer Name Role Phone Emigdio Veronica MD Primary Care Provider + Izabella Snowden [facility] [phone] Encounter Details Date Type Department Care Team (Latest Contact Info) Description 10/20/2023 Documentation Visit [facility] Adult Primary Care - [place] 2 [place] [address] Emigdio Veronica MD 2 [place] [address] Acute renal failure, unspecified acute renal failure type (HCC-CMS); Stage 3 chronic kidney disease, unspecified whether stage 3a or 3b CKD (HCC-CMS); Anemia in chronic kidney disease, unspecified CKD stage; Depression, unspecified depression type; Hypokalemia; Chronic respiratory failure with hypoxia (HCC-CMS); 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; Other specified chronic obstructive pulmonary disease; Other cirrhosis of liver (HCC-CMS); Portal hypertension (HCC-CMS) Social History Tobacco Use Types Packs/Day Years Used Date Smoking Tobacco: Every Day Cigarettes 0.3 35 Smokeless Tobacco: Never Comments:3 cigarettes a day Alcohol Use Standard Drinks/Week Comments No 0 (1 standard drink = 0.6 oz pur e alcohol) Overall Financial Resource Strain [facility] Answe r Date Recorded How hard is [...] No 04/29/2023 Housing Stability Vital Sign Answer Joans e Recorded In the last 12 months, [...] 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 Emigdio Veronica documented in this encounter Plan of Treatment Upcoming Encounters Date Type Department Care Team (Late st Contact Info) Description 01/04/2025 13:00 EST Office Visit [facility] Ophthalmology - [address] [phone] Gagandeep Rome MD [address] [place] [address], Level 5 [place] [address] 02/11/2025 13:30 EDT Telemedicine [facility] Hematology & Oncology - [address] [phone] Dana Padilla MD 111 [facility], Level 2 [place] [phone] documented as of this encounter Visit Diagnoses Diagnosis Acute renal failure, unspecified acute renal failure type (HCC-CMS) Stage 3 chronic kidney disease, unspecified whether stage 3a or 3b CKD (HCC-CMS) Anemia in chronic kidney disease, unspecified CKD stage Depression, unspecified depression type Hypokalemia Hypopotassemia Chronic respiratory failure with hypoxia (HCC-CMS) Chronic respiratory failure 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 Chronic venous embolism and thrombosis of other specified veins Other specified chronic obstructive pulmonary disease (HCC-CMS) Other cirrhosis of liver (HCC-CMS) Portal hypertension (HCC-CMS) Portal hypertension documented in this encounter Care Teams Contracts Officer Relationship Specialty Start Date End Date Emigdio Veronica MD 2 [place] [phone] PCP - General Internal Medicine - Primary Care 05/22/20 02/21/24 Izabella Snowden, [facility] 1 [facility], 3rd [place] [phone] Building Equipment Inspector 02/21/23 05/03/24 documented as of this encounter
--- OUTSIDE RECORDS SUMMARY | 2024-11-22 16:52 | XMS_ITS | Encounter Summary ---
Author Organization [facility] Address [address] [place] [address] Care Team Providers Care Chef Instructor Name Role Phone Emigdio Veronica MD Primary Care Provider + Izabella Snowden [facility] Unavailable [phone] Reason for Visit * Reason Comments Medications Refill Encounter Details Date Type Department Care Team (Late st Contact Info) Description 10/11/2023 Refill [facility] Primary Care 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 Not on file [...] Info) Description 01/04/2025 13:00 EST Office Visit [facility] Ophthalmology - [address] [phone] Gagandeep Rome MD [address] [place] [address] 5 [place] [phone] 02/11/2025 13:30 EDT Telemedicine [facility] Hematology & Oncology - [address] [phone] Dana Padilla MD [address] [place] [address], [facility] 2 [place] [address] documented as of this encounter Visit Diagnoses Not on filedocumented in this encounter Care Teams Chef Instructor Relationship Specialty Start Date End Date Emigdio Veronica MD 2 [place] [phone] PCP - General Internal Medicine - Primary Care 05/22/20 02/21/24 Izabella Snowden, [facility] 1 Replaced by [facility], [address]rd [place] [address] Vegetable Canner 02/21/23 05/03/24 documented as of this encounter
--- OUTSIDE RECORDS SUMMARY | 2024-11-22 16:52 | XMS_ITS | Encounter Summary ---
Author Organization [facility] Address [address] [place] [address] Care Team Providers Care Radio Assembler Name Role Phone Emigdio Veronica MD Primary Care Provider + Izabella Snowden 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 42 Tablet 09/17/2023 3 documented in this encounter Miscellaneous Notes * Telephone Encounter - Paige Gilman RN - 09/17/2023 1657 EDT Call placed to patient to discuss. She picked up Rx on 09/15/23 for 15 tabs- has enough for her dosing tonight as she was instructed by PCP to increase back to her normal Rx. Notified patient that RN will fill rx for: hydroxyzine based on PCP dosing 25- 50mg TID PRN #[address] Avilez. Request patient reach out to pharmacy for sheepskin pickler tomorrow. Confirmed pharmacy is [facility] in [place]. The patient indicates understanding of these issues and agrees with the plan. PAIGE GILMAN RN 09/17/2023 17:08 * Telephone Encounter - Katherin Hansen MD - 09/17/2023 1631 EDT Weekend POD: 08/22/23 PCP has written 25-50mg TID PRN for anxiety. 09/15/23 it looks like hydroxyzine 25mg TID PRN was written #15 tabs to [facility]. Unclear if she picked this up but if she was taking 50mg TID this would last for only 2.5 days. Weekend RN: Please clarify use and if she picked up the script written recently? Assuming she has and has used this up then please order hydroxyzine based on PCP dosing 25-50mg TID PRN #42 tabs to give her a week supply until she can f/u with PCP next week. If she hasn't then inform her to pick this Rx up and she can f/u with PCP Tuesday. WIll CC PCP as FYI. Katherin Avilez MD 09/17/2023 16:32 * Telephone Encounter - Maritza Denise - 09/17/2023 1621 EDT Pt called because she is nearly out of her medication and she was under the impression that Dr Veronica was going to send her in a refill. She spoke to the office yesterday who sold her to increase her dose from 1 tab to 1-2 tabs and she is down to two doses documented in this encounter Plan of Treatment Upcoming Encounters Date Type Department Care Team (Late st Contact Info) Description 01/04/2025 13:00 EST Office Visit [facility] Ophthalmology - [address] [phone] Gagandeep Rome MD [address] [place] [address], [facility] 5 [place] [address] 02/11/2025 13:30 EDT Telemedicine [facility] Hematology & Oncology [address] [phone] Dana Padilla MD [address] [place] [address], [facility] 2 [place] [phone] documented as of this encounter Visit Diagnoses Not on filedocumented in this encounter Discontinued Medications Medication Sig Discontinue Reason Start Date End Da te hydrOXYzine (ATARAX) 25 mg tablet Take 1 Tablet by mouth 3 times daily as needed for up to 10 days for Anxiety. Reorder 09/15/2023 09/17/2023 hydrOXYzine (ATARAX) 25 mg tablet Take 1-2 Tablets by mouth 3 times daily as needed for Anxiety. Reorder 08/22/2023 09/17/2023 documented as of this encounter Care Teams Radio Assembler Relationship Specialty Start Date End Date Emigdio Veronica MD 2 [place] [address] PCP - General Internal Medicine - Primary Care 05/22/20 02/21/24 Izabella Snowden, CUSTOMER ENGAGEMENT MANAGER 1 [facility], 3rd [place] [address] Fiberglass Container Winding Operator 02/21/23 05/03/24 documented as of this encounter
--- OUTSIDE RECORDS SUMMARY | 2024-11-22 16:52 | XMS_ITS | Encounter Summary ---
Author Organization [facility] Address [address] [place] [address] Care Team Providers Care Credit Office Manager Name Role Phone Emigdio Veronica MD Primary Care Provider + Izabella Snowden [facility] Unavailable Reason for Visit * Reason Onset Date Comments Medications Refill 10/11/2023 Encounter Details Date Type Department Care Team (Late st Contact Info) Description 10/11/2023 Refill [facility] Adult Primary Care - [place] 2 [place], [place] [phone] Emigdio Veronica MD 2 [place] [address] Medications Refill Social History Tobacco [...] 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 180 Tablet 10/11/2023 3 documented in this encounter Miscellaneous Notes * Telephone Encounter - Cynthia Huang - 10/11/2023 1626 EST Pt calling as this hasn't been called into the pharmacy yet. * Telephone Encounter - Noemi Hall - 10/11/2023 1343 EST Requested Prescriptions Pending Prescriptions Disp Refills ??? hydrOXYzine (ATARAX) 25 mg tablet 42 Tablet 0 Sig: Take 1-2 Tablets by mouth 3 times daily as needed for Anxiety. Patient says she only has two days left [facility]/pharmacy #[id number] - [address] Confirmed Pharmacy? Yes Patient out of medication? Yes: Needs Refill Now How many pills does patient have left? two more for today Last Refill Date: 10.01.23? Refills left? (explain exceptions requiring early refill) No Recent Visits Date Type Provider Dept 09/21/23 Office Visit Emigdio Veronica III, MD [facility] Adult Bard Care 09/13/23 Office Visit Emigdio Veronica III, MD [facility] [place] Adult Prim Care 09/07/23 Office Visit Scottie Campuzano PA-C [facility] [place] Adult Prim Care 08/25/23 Office Visit Ruth Ortez MD PhD [facility] [place] Adult Prim Care 07/13/23 Office Visit Emigdio Veronica III, [facility] Adult Prim Care 06/29/23 Office Visit Scottie Campuzano PA-C [facility] Adult Prim Care 06/10/23 Office Visit Emigdio Veronica III, [facility] Adult Prim Care 05/26/23 Office Visit Scottie Campuzano PA-C [facility] Adult Prim Care 05/05/23 Office Visit Emigdio Veronica III, [facility] Adult Prim Care 04/26/23 Office Visit Scottie Campuzano PA-C [facility] Adult Prim Care Showing recent visits within past 540 days with a meds authorizing provider and meeting all other requirements Future Appointments Date Type Provider Dept 12/26/23 Appointment Emigdio Veronica III, MD [facility] Adult Prim Care Showing future appointments within next 150 days with a meds authorizing provider and meeting all other requirements Future appointment: Already Scheduled Noemi Hall 10/11/2023 13:43 documented in this encounter Plan of Treatment Upcoming Encounters Date Type Department Care Team (Late st Contact Info) Description 01/04/2025 13:00 EST Office Visit [facility] Ophthalmology - [address] [phone] Gagandeep Rome MD [address] [place] [address], [facility] 5 [place] [phone] 02/11/2025 13:30 EDT Telemedicine [facility] Hematology & Oncology [address] [phone] Dana Padilla MD [address] [place] [address], Level [address] [place] [phone] documented as of this encounter Visit Diagnoses Not on filedocumented in this encounter Discontinued Medications Medication Sig Discontinue Reason Start Date End Da te hydrOXYzine (ATARAX) 25 mg tablet TAKE 1-2 TABLETS BY MOUTH 3 TIMES DAILY NEEDED FOR ANXIETY. Reorder 10/01/2023 10/11/2023 documented as of this encounter Care Teams Credit Office Manager Relationship Specialty Start Date End Date Emigdio Veronica MD 2 [place] [phone] PCP - General Internal Medicine - Primary Care 05/22/20 02/21/24 Izabella Snowden, [facility] 1 [facility], 3rd [place] [phone] Warper Fixer 02/21/23 05/03/24 documented as of this encounter
--- OUTSIDE RECORDS SUMMARY | 2024-11-22 16:52 | XMS_ITS | Encounter Summary ---
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 She reported that she had secured an apartment in [place], [place]. Returned patient's call-left voice mail for her PLAN: CM LVM for patient. DARNELL MCCORMICK 11/18/2023 15:36 documented in this encounter Plan of Treatment Upcoming Encounters Date Type Department Care Team (Late st Contact Info) Description 01/04/2025 13:00 EST Office Visit [facility] [place] Ophthalmology - [address] [phone] Gagandeep Rome MD [address] [place] [address], [facility] 5 [place] [phone] 02/11/2025 13:30 EDT Telemedicine [facility] Hematology & Oncology [address] [phone] Dana Padilla MD [address] [place] [address], [facility] 2 [place] [phone] documented as of this encounter Visit Diagnoses Not on filedocumented in this encounter Care Teams Redeye Gunner Relationship Specialty Start Date End Date Emigdio Veronica MD 2 [place] [phone] PCP - General Internal Medicine - Primary Care 05/22/20 02/21/24 Izabella Snowden, [facility] 1 [facility], 3rd [place] [address] Seat Coverer 02/21/23 05/03/24 documented as of this encounter
--- OUTSIDE RECORDS SUMMARY | 2024-11-22 16:52 | XMS_ITS | Encounter Summary ---
Author Organization [facility] Address [address] [place] [address] Care Team Providers Care Therapeutic Recreation Leader Name Role Phone Emigdio Veronica MD Primary Care Provider + Izabella Snowden STRATEGIC ANALYST Unavailable [phone] Encounter Details Date Type Department Care Team (Late st Contact Info) Description 09/16/2023 Patient Outreach [facility] Adult Primary Care - [place] 2 [place] [address] Izabella Snowden LICSW 1 [facility], 3rd [place] [address] Social History Tobacco Use Types [...] 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 Patient was assessed at the ED by Jessa Elizabeth Door Frame Builder. Jessa was not available but another Sock Ironer called back (Blayne). Blayne suggested that patient get on waiting list at [facility] for OP counseling. There is no way to expedite a referral but once on the waiting list she will have access to a pillowcase maker that can provide general supports/assistance as she waits for an opening. CM will discuss further with patient. Intake and Access Number [phone]. PLAN: CM will follow up with patient to discuss getting on waiting list at [facility]. Will also explore IOP programs [facility], [place], [facility]- Insurance may be a barrier as [facility] does not take [facility] Medicare-not sure about the other programs. Can discuss possibility of PFAP as well. DARNELL MCCORMICK 09/16/2023 10:04 documented in this encounter Plan of Treatment Upcoming Encounters Date Type Department Care Team (Late st Contact Info) Description 01/04/2025 13:00 EST Office Visit [facility] Ophthalmology - Main [address] [address] Gagandeep Rome MD 111 [facility], Level 5 [place] [address] 02/11/2025 13:30 EDT Telemedicine [facility] Hematology & Oncology - [address] [address] Dana Padilla MD 111 [facility], Level 2 [place] [address] documented as of this encounter Visit Diagnoses Not on filedocumented in this encounter Care Teams Therapeutic Recreation Leader Relationship Specialty Start Date End Date Emigdio Veronica MD 2 [place] [phone] PCP - General Internal Medicine - Primary Care 05/22/20 02/21/24 Izabella Snowden, [facility] 1 [facility], 3rd [place] [address] Mold Laminator 02/21/23 05/03/24 documented as of this encounter
--- OUTSIDE RECORDS SUMMARY | 2024-11-22 16:52 | XMS_ITS | Encounter Summary ---
Author Organization [facility] Address [address] [place] [address] Care Team Providers Care Mat Machine Operator Name Role Phone Emigdio Veronica MD Primary Care Provider + Izabella Snowden 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 Daily Max: 15 mg 84 Tablet 09/27/2023 10/20/2023 documented in this encounter Miscellaneous Notes * Telephone Encounter - Heike Rosado RN - 09/22/2023 1650 EDT Call to pt Advised of message She will have daughter p/u rx from pharmacy on Tuesday and bring to her in the [facility] where she will be for next wk. Leaves to go up there tomorrow The patient indicates understanding of these issues and agrees with the plan. HEIKE ROSADO RN 09/22/2023 16:52 * Telephone Encounter - Emigdio Veronica III, MD - 09/22/2023 1633 EDT Agree with plan. Script signed * Telephone Encounter - Karol Hoff RN - 09/22/2023 1401 EDT Spoke to patient and Dr Veronica yesterday. She reports she hadn't Family and Patient Advocacy on her concerns regarding her resent over night ED stay. Additional phone message left for them today by me. [facility] Veronica requested we contact pharmacy to see if they would be willing to give patient another early fill of her oxycodone due to travel given her multiple other requests. I spoke to Wayne from [facility] and he would not fill comfortable with another early fill and advised patient get this filled where she is traveling. Please see pended oxycodone, patient will have daughter continuous pickling line pickler helper in [place]. documented in this encounter Plan of Treatment Upcoming Encounters Date Type Department Care Team (Late st Contact Info) Description 01/04/2025 13:00 EST Office Visit [facility] Ophthalmology - [address] [phone] Gagandeep Rome MD [address] [place] [address], [facility] 5 [place] [phone] 02/11/2025 13:30 EDT Telemedicine [facility] Hematology & Oncology - [address] [phone] Dana Padilla MD [address] [place] [address], [facility] 2 [place] [address] documented as of this encounter Visit Diagnoses Not on filedocumented in this encounter Discontinued Medications Medication Sig Discontinue Reason Start Date End Da te oxyCODONE (ROXICODONE) 5 mg immediate release tablet Take 1 Tablet by mouth 3 times daily as needed for up to 28 days for Pain. Daily Max: 15 mg Reorder 08/30/2023 09/22/2023 documented as of this encounter Care Teams Mat Machine Operator Relationship Specialty Start Date End Date Emigdio Veronica MD 2 [place] [phone] PCP - General Internal Medicine - Primary Care 05/22/20 02/21/24 Izabella Snowden, [facility] 1 [facility], 3rd [place] [phone] Soap Drier Operator 02/21/23 05/03/24 documented as of this encounter
--- OUTSIDE RECORDS SUMMARY | 2024-11-22 16:52 | XMS_ITS | Encounter Summary ---
Author Organization [facility] Address [address] [place] [address] Care Team Providers Care Template Fitter Name Role Phone Emigdio Veronica MD Primary Care Provider + Izabella Snowden TRAFFIC REPRESENTATIVE Unavailable [phone] Encounter Details Date Type Department Care Team (Late st Contact Info) Description 10/20/2023 Patient Outreach [facility] Adult Primary Care - [place] 2 [place] [address] Izabella Snowden LICSW 1 [facility], 3rd [place] [address] Social History Tobacco Use Types [...] 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 TOPIC OF CONVERSATION: ??? Reviewed assessment and plan from previous visit with patient. ??? Engaged patient in conversation related to positive behavior change, self- management, goal setting and action planning using motivational interviewing and active listening. ??? Patient reports that she was away last week-went to her daughter's house. She is back in [place] now. ??? She met with this week. They are waiting on a new SS card to be mailed to her upon which shecan make a copy and submit with her housing applications. ??? Gena states she has a lead on an apartment in [place], [place] and is waiting for the silk screen processor to return from [facility] to discuss the possibility of renting. ??? Patient reports that she was denied Emergency Housing-there was no explanation. My guess is that she will need to contact ESD on the actual day she is leaving the apartment in order to qualify. Suggested that she call ESD to clarify so she knows what her options are. Patient stated that she would call later today. ??? Roommate has told patient that she can stay through October. ??? Patient stated that Home Health only came 1x-she is not sure if they are still coming. ??? In reviewing patient's chart it appears that Home Health has tried to contact patient x2 weeks and can not reach her nor has she returned their phone calls. Called patient back and LVM with this info and suggested that patient call Home Health back. Prioritized Patient Identified Goals: 1. Patient will follow up with Residence Supervisor in the next to 2 weeks to begin housing applications for the [facility] area. Achievement towards goals: In progress 2. Patient will contact ESD today to apply for emergency housing. Achievement towards goals: In progress Plan: CM will follow-up in 7 days DARNELL MCCORMICK 10/20/2023 12:45 documented in this encounter Plan of Treatment Upcoming Encounters Date Type Department Care Team (Late st Contact Info) Description 01/04/2025 13:00 EST Office Visit [facility] Ophthalmology - [address] [phone] Gagandeep Rome MD [address] [place] [address], [facility] 5 [place] [phone] 02/11/2025 13:30 EDT Telemedicine [facility] Hematology & Oncology - [address] [phone] Dana Padilla MD [address] [place] [address], [facility] 2 [place] [phone] documented as of this encounter Visit Diagnoses Not on filedocumented in this encounter Care Teams Template Fitter Relationship Specialty Start Date End Date Emigdio Veronica MD 2 [place] [phone] PCP - General Internal Medicine - Primary Care 05/22/20 02/21/24 Izabella Snowden LICSW 1 [facility], 3rd [place] [phone] Rn Clinician 02/21/23 05/03/24 documented as of this encounter
--- OUTSIDE RECORDS SUMMARY | 2024-11-22 16:52 | XMS_ITS | Encounter Summary ---
Author Organization [facility] Address [address] [place] [address] Care Team Providers Care Terra Cotta Roofer Name Role Phone Emigdio Veronica MD Primary Care Provider + Izabella Snowden [facility] Unavailable [phone] Reason for Visit * Reason Comments Health Assistance Program Encounter Details Date Type Department Care Team (Late st Contact Info) Description 11/03/2023 Community Health Team [address], [facility] [address] [place] [address] [facility], Health Assistance Program [address] [place] [id number] Social History Tobacco Use Types Packs/Day Years [...] 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 Plan / Action Items: This RC will follow-up within 10 to 14 days. Lucie Yao 11/03/23 9:47 documented in this encounter Plan of Treatment Upcoming Encounters Date Type Department Care Team (Late st Contact Info) Description 01/04/2025 13:00 EST Office Visit [facility] Ophthalmology - [address] [phone] Gagandeep Rome MD [address] [place] [address] [address] [place] [address] 02/11/2025 13:30 EDT Telemedicine [facility] Hematology & Oncology [address] [phone] Dana Padilla MD [address] [place] [address], [facility] [address] [place] [phone] documented as of this encounter Visit Diagnoses Not on filedocumented in this encounter Care Teams Terra Cotta Roofer Relationship Specialty Start Date End Date Emigdio Veronica MD [address] [place] [phone] PCP - General Internal Medicine - Primary Care 05/22/20 02/21/24 Izabella Snowden, CHAIN MORTISER OPERATOR 1 Counts include 234 beds at the [facility], [address] [place] [address] Packaging Line Operator 02/21/23 05/03/24 documented as of this encounter
--- OUTSIDE RECORDS SUMMARY | 2024-11-22 16:52 | XMS_ITS | Encounter Summary ---
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 gabapentin (NEURONTIN) 300 mg capsule [Pharmacy Med Name: GABAPENTIN 300 MG CAPSULE] 120 Capsule 1 Sig: TAKE 1 CAPSULE BY MOUTH TWICE A DAY Refused Prescriptions Disp Refills ??? furosemide (LASIX) 20 mg tablet [Pharmacy Med Name: FUROSEMIDE 20 MG TABLET] 90 Tablet 1 Sig: TAKE 3 TABLETS EVERY DAY. IF FLUID IN LEGS IS WELL CONTROLLED THEN CUT DOWN TO 2 EVERY DAY. [facility]/pharmacy #[id number] - [address] Confirmed Pharmacy? Yes Patient out of medication? No How many pills does patient have left? unknown Last Refill Date: 08/31/23 Refills left? (explain exceptions requiring early refill) Yes, pt should have medication left Recent Visits Date Type Provider Dept 09/13/23 Office Visit Emigdio Veronica III, MD [facility] Adult Prim Care 09/07/23 Office Visit Scottie Campuzano PA-C [facility] Adult Prim Care 08/25/23 Office Visit Ruth Ortez MD PhD [facility] Adult Prim Care 07/13/23 Office Visit Emigdio Veronica III, MD [facility] Adult Prim Care 06/29/23 Office Visit Scottie Campuzano PA-C [facility] Adult Prim Care 06/10/23 Office Visit Emigdio Veronica III, MD [facility] [place] Adult Prim Care 05/26/23 Office Visit Scottie Campuzano PA-C [facility] [place] Adult Prim Care 05/05/23 Office Visit Emigdio Veronica III, MD [facility] [place] Adult Prim Care 04/26/23 Office Visit Scottie Campuzano PA-C [facility] [place] Adult Prim Care 03/15/23 Office Visit Emigdio Veronica III, MD [facility] Adult Prim Care Showing recent visits within past 540 days with a meds authorizing provider and meeting all other requirements Future Appointments Date Type Provider Dept 09/21/23 Appointment Emigdio Veronica III, MD [facility] Adult Prim Care Showing future appointments within next 150 days with a meds authorizing provider and meeting all other requirements Future appointment: Already Scheduled Will send MCM to clarify to pt HEIKE ROSADO RN 09/20/2023 14:56 * Telephone Encounter - Heike Rosado RN - 09/20/2023 8082 EDTFrom: Tara Yun Sent: 09/20/2023 14:49 EDT To: Jeremi Saleh Rn Subject: clarification Yes and I'm almost out of the gabapentin. The Lasix is on hold til I see Dr Veronica tomorrow 09/21 documented in this encounter Plan of Treatment Upcoming Encounters Date Type Department Care Team (Late st Contact Info) Description 01/04/2025 13:00 EST Office Visit [facility] Ophthalmology - [address] [id number] Gagandeep Rome MD [address] [place] [address], [address] [place] [address] 02/11/2025 13:30 EDT Telemedicine [facility] Hematology & Oncology [address] [phone] Dana Padilla MD 111 [facility], [address] [place] [address] documented as of this encounter Visit Diagnoses Not on filedocumented in this encounter Care Teams Care Coordination Manager Relationship Specialty Start Date End Date Emigdio Veronica MD [address] [place] [address] PCP - General Internal Medicine - Primary Care 05/22/20 02/21/24 Izabella Snowden, [facility] 1 [facility], 3rd [place] [address] Uniform Designer 02/21/23 05/03/24 documented as of this encounter
--- OUTSIDE RECORDS SUMMARY | 2024-11-22 16:52 | XMS_ITS | Encounter Summary ---
Author Organization [facility] Address [address] [place] [address] Care Team Providers Care Hospitality Internship Name Role Phone Emigdio Veronica MD Primary Care Provider + Izabella Snowden [facility] Unavailable [phone] Reason for Visit * Reason Comments Health Assistance Program Encounter Details Date Type Department Care Team (Late st Contact Info) Description 09/19/2023 Community Health Team [address], [facility] [address] [place] [address] [facility], Health Assistance Program [address] [place] [id number] Social History Tobacco Use Types Packs/Day Years [...] 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 Manufacturing Assistant (RC) called patient to remind her of in-person appointment tomorrow, 09/20/23, to finish and submit housing applications; this time no longer works for patient. ?? RC reviewed what is needed to complete housing applications - patient will need to sign applications and provide copies of her SS card and [place] ID card. ?? Patient does not have a copy of her Social Security Card. ?? RC called [facility] to see if application could be submitted without card and card sent later; it cannot. Application will be returned to patient if not submitted with SS card and [place] ID card. ?? RC assisted patient with completing request form for new SS card; patient to sign and return to Social Security. Plan / Action Items: ?? RC will follow-up with patient within 10 to 14 days. Lucie Yao 09/19/23 15:21 documented in this encounter Plan of Treatment Upcoming Encounters Date Type Department Care Team (Late st Contact Info) Description 01/04/2025 13:00 EST Office Visit [facility] Ophthalmology - [address] [address] Gagandeep Rome MD [address] [facility], [address] [place] [phone] 02/11/2025 13:30 EDT Telemedicine [facility] Hematology & Oncology - [address] [phone] Dana Padilla MD 111 [facility], [address] [place] [address] documented as of this encounter Visit Diagnoses Not on filedocumented in this encounter Care Teams Hospitality Internship Relationship Specialty Start Date End Date Emigdio Veronica MD [address] [place] [phone] PCP - General Internal Medicine - Primary Care 05/22/20 02/21/24 Izabella Snowden, [facility] 1 [facility], 3rd [place] [address] Commercial Print Salesman 02/21/23 05/03/24 documented as of this encounter
--- OUTSIDE RECORDS SUMMARY | 2024-11-22 16:53 | XMS_ITS | Encounter Summary ---
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 DAILY PRN, Starting on Kirsten 09/15/23 at 0619, Until Kirsten 09/15/23 at 1842, Pain, STAT 1026 (Given - Provid er: Marya Camara RN) documented in this encounter Orders Medications Ordered That Luc ht Not Have Been Administered Count Last Ordered Date First Ordered Date sodium chloride 0.9 % BOLUS 1,000 mL 1 08/22 lidocaine 5 % (LIDODERM) patch 1 Patch 1 documented in this encounter Care Teams Furnace Loader Relationship Specialty Start Date End Date Emigdio Veronica MD 2 [place] [phone] PCP - General Internal Medicine - Primary Care 05/22/20 02/21/24 Izabella Snowden, INFORMATICA DEVELOPER [facility], 3rd [place] [address] Principal Security Architect 02/21/23 05/03/24 documented as of this encounter
--- OUTSIDE RECORDS SUMMARY | 2024-11-22 16:53 | XMS_ITS | Encounter Summary ---
Author Organization [facility] Address [address] [place] [address] Care Team Providers Care City Surveyor Name Role Phone Emigdio Veronica MD Primary Care Provider + Izabella Snowden [facility] Unavailable [phone] Reason for Visit * Reason Onset Date Comments Follow-up 09/09/2023 Hospital Dischar ge Encounter Details Date Type Department Care Team (Late st Contact Info) Description 09/09/2023 Telephone [facility] Adult Primary Care - [place] [address] [place] [address] Emigdio Veronica MD [address] [place] [address] Follow-up (Hospital Discharge) Social History Tobacco Use Types Packs/Day Years [...] 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 Answer Date of Assessment Author No 09/08/2023 17:08 Aj Hall RN * Are you blind or do [...] Telephone Encounter - Karol Hoff RN - 09/13/2023 0816 EDT Patient rescheduled for today. * Telephone Encounter - Shaorn Joseph RN - 09/09/2023 1630 EDT Pt is aware of recommendation in the HFU will continuue with the lovenox * Telephone Encounter - Cynthia Huang - 09/09/2023 1620 EDT Pt is calling as she has been discharged from the hospital and she was taking heprin while there instead of her lovenox injection, not sure what she should she be taking, but if it's being changed toheprin she doesn't have any. * Telephone Encounter - Cynthia Huang - 09/09/[address] Castillo called to make a hospital discharge f/u for Pt. Scheduled for 10/[address] Matthews at 9AM documented in this encounter Plan of Treatment Upcoming Encounters Date Type Department Care Team (Late st Contact Info) Description 01/04/2025 13:00 EST Office Visit [facility] Ophthalmology - [address] [phone] Gagandeep Rome MD [address] [place] [address], [facility] 5 [place] [phone] 02/11/2025 13:30 EDT Telemedicine [facility] Hematology & Oncology [address] [phone] Dana Padilla MD [address] [place] [address], [facility] 2 [place] [address] documented as of this encounter Visit Diagnoses Not on filedocumented in this encounter Care Teams City Surveyor Relationship Specialty Start Date End Date Eimgdio Veronica MD [address] [place] [address] PCP - General Internal Medicine - Primary Care 05/22/20 02/21/24 Izabella Snowden, [facility] 1 [facility], 3rd [place] [phone] Mission Commander 02/21/23 05/03/24 documented as of this encounter
--- OUTSIDE RECORDS SUMMARY | 2024-11-22 16:53 | XMS_ITS | Encounter Summary ---
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 Answer Date of Assessment Author No 04/29/2023 11:26 Franca Billings RN * Are you blind or do you have serious difficulty seeing, even when wearing glasses? Answer Date of Assessment Author No 04/29/2023 11:26 Franca Billings RN * Do you have serious difficulty walking or climbing stairs? (5 years old or older) Answer Date of Assessment Author No 04/29/2023 11:26 Franca Billings RN * Do you have difficulty dressing or bathing? (5 years old or older) Answer Date of Assessment Author No 04/29/2023 11:26 EDT Franca Marquez RN * Because of a physical, mental, or emotional condition, do you have difficulty doing errands alone such as visiting a doctor's office or shopping? (15 years old or older) Answer Date of Assessment Author No 04/29/2023 11:26 EDT Franca Marquez RN documented as of this encounter Mental Status * Because of a physical, mental, or emotional condition, do you have serious difficulty concentrating, remembering, or making decisions? (5 years old or older) Answer Entry Date Author No 04/29/2023 11:26 EDFranca Meier RN documented in this encounter Progress Notes * Izabella Snowden LICSW - 08/30/2023 1604 EDT [facility] Yard Stocker Care Coordination Patient returned CM's phone call from earlier in the week. Patient reports that she has been experiencing increased stress and anxiety from her living situation. Roommate with mental health issues who is currently in a manic state. Patient is wanting to explore housing options in the [facility] to be close to her daughter who lives in [facility]. Patient has called 2 property management companies, [employer] in [place], [place] and [employer] in [facility]. Both companies are sending patient applications. We discussed applying for additional properties and patient would like support in completing applications with Lucie Godinez Surveillance Observer. Patient has a pet (dog) and we discussed getting documentation from PCP for an emotional support animal. Reviewed Crisis number and [employer] Peer Supprt number. PLAN: CM will reach out to Surveillance Observer for assistance with Housing Applications. CM to follow up with patient on 09/13/23 at 230pm. DARNELL MCCOMRICK 08/30/2023 16:05 documented in this encounter Plan of Treatment Upcoming Encounters Date Type Department Care Team (Late st Contact Info) Description 01/04/2025 13:00 EST Office Visit [facility] Ophthalmology - Main [address] [phone] Gagandeep Rome MD [address] [facility], [address] [place] [phone] 02/11/2025 13:30 EDT Telemedicine [facility] Hematology & Oncology - [address] [address] Dana Padilla MD 111 [facility], Level 2 [place] [address] documented as of this encounter Visit Diagnoses Not on filedocumented in this encounter Care Teams Count Team Clerk Relationship Specialty Start Date End Date Emigdio Veronica MD 2 [place] [address] PCP - General Internal Medicine - Primary Care 05/22/20 02/21/24 Izabella Snowden, [facility] 1 [facility], 3rd [place] [address] Yard Stocker 02/21/23 05/03/24 documented as of this encounter
--- OUTSIDE RECORDS SUMMARY | 2024-11-22 16:53 | XMS_ITS | Encounter Summary ---
Author Organization [facility] Address [address] [place] [address] Care Team Providers Care Rug Drying Machine Operator Name Role Phone Emigdio Veronica MD Primary Care Provider + Izabella Snowden [facility] Unavailable [phone] Reason for Visit * Reason Comments Health Assistance Program Encounter Details Date Type Department Care Team (Late st Contact Info) Description 08/31/2023 Community Health Team [address], [facility] [address] [place] [address] [facility], Health Assistance Program [address] [place] [address] Social History Tobacco Use Types Packs/Day Years [...] 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 Motel Manager (RC) called patient to follow-up on completing housing applications and left a voicemail Plan / Action Items: ?? RC will outreach again within 7 to 10 days. Lucie Yao 08/31/23 15:21 documented in this encounter Plan of Treatment Upcoming Encounters Date Type Department Care Team (Late st Contact Info) Description 01/04/2025 13:00 EST Office Visit [facility] Ophthalmology - [address] [phone] Gagandeep Rome MD [address] [place] [address], [facility] 5 [place] [phone] 02/11/2025 13:30 EDT Telemedicine [facility] Hematology & Oncology [address] [phone] Dana Padilla MD [address] [place] [address], [facility] 2 [place] [phone] documented as of this encounter Visit Diagnoses Not on filedocumented in this encounter Care Teams Rug Drying Machine Operator Relationship Specialty Start Date End Date Emigdio Veronica MD 2 [place] [phone] PCP - General Internal Medicine - Primary Care 05/22/20 02/21/24 Izabella Snowden, [facility] 1 [facility], 3rd [place] [address] Manager Wealth Management 02/21/23 05/03/24 documented as of this encounter
--- OUTSIDE RECORDS SUMMARY | 2024-11-22 16:53 | XMS_ITS | Encounter Summary ---
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 Patient has received several applications for housing and would like to get started on completing applications. had attempted to call patient on 08/31/23 and [facility] for [facility]. I let patient know that I would pass her message along to as well. PLAN: Sent Email to Lucie Godinez( ) to see if she could reach back out to patient to discuss scheduling an appoinment to begin housing applications. CM will reach back out to patient on 09/14/23 DARNELL MCCORMICK 09/05/2023 14:41 documented in this encounter Plan of Treatment Upcoming Encounters Date Type Department Care Team (Late st Contact Info) Description 01/04/2025 13:00 EST Office Visit [facility] Ophthalmology - [facility] [address] [place] [address] Gagandeep Rome MD 111 [facility], Level 5 [place] [address] 02/11/2025 13:30 EDT Telemedicine [facility] Hematology & Oncology - [address] [phone] Dana Padilla MD 111 [facility], Level [address] [place] [phone] documented as of this encounter Visit Diagnoses Not on filedocumented in this encounter Care Teams Flume Maker Relationship Specialty Start Date End Date Emigdio Veronica MD 2 [place] [phone] PCP - General Internal Medicine - Primary Care 05/22/20 02/21/24 Izabella Snowden, [facility] 1 [facility], 3rd [place] [address] Wheel Assembler 02/21/23 05/03/24 documented as of this encounter
--- OUTSIDE RECORDS SUMMARY | 2024-11-22 16:53 | XMS_ITS | Encounter Summary ---
Author Organization [facility] Address [address] [place] [address] Care Team Providers Care Fish Processor Name Role Phone Emigdio Veronica MD Primary Care Provider + Izabella Snowden [facility] Unavailable None, Provider Primary Care Provider Gabriel Wei Primary Care Provider Mirna Guerrero Primary Care Provider + Reason for Visit * Reason Comments Medications Refill Encounter Details Date Type Department Care Team (Late st Contact Info) Description 08/30/2023 Refill [facility] Adult Primary Care - [place] 2 [place] [address] Scottie Campzuano PA-C 2 [place] [address] Medications Refill Social History Tobacco [...] 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 Answer Date of Assessment Author No 04/29/2023 11:26 Franca Billings, RN * Are you blind or do [...] No 04/29/2023 11:26 Franca Billings RN * Because of a physical, mental, or emotional condition, do you have difficulty doing errands alone such as visiting a doctor's office or shopping? (15 years old or older) Answer Date of Assessment Author No 04/29/2023 11:26 Franca Billings RN documented as of this encounter Mental Status * Because of a physical, mental, or emotional condition, do you have serious difficulty concentrating, remembering, or making decisions? (5 years old or older) Answer Entry Date Author No 04/29/2023 11:26 Franca Billings RN documented in this encounter Ordered Prescriptions Prescription Sig Dispense Quantity Refills Last Filled Start Date End Date doxepin (SINEQUAN) 10 mg capsule TAKE 1 TO 2 CAPSULES BY MOUTH AT BEDTIME 180 Capsule 3 08/31/2023 4 documented in this encounter Miscellaneous Notes * Telephone Encounter - Pam Ivey RN - 08/31/2023 1149 EDT Requested Prescriptions Pending Prescriptions Disp Refills ??? doxepin (SINEQUAN) 10 mg capsule [Pharmacy Med Name: DOXEPIN 10 MG CAPSULE] 180 Capsule Sig: TAKE 1 TO 2 CAPSULES BY MOUTH AT BEDTIME [facility]/pharmacy #[id number] - [address] Confirmed Pharmacy? [facility] Request Patient out of medication? Unknown Last Refill Date: 06/29/23 Refills left? (explain exceptions requiring early refill) No- Pt likely just recently picked up last remaining Rx on file Recent Visits Date Type Provider Dept 08/25/23 Office Visit Ruth Otrez MD PhD [facility] Adult Prim Care 07/13/23 Office Visit Emigdio Veronica III, MD [facility] Adult Prim Care 06/29/23 Office Visit Scottie Campuzano PA-C [facility] [place] Adult Prim Care 06/10/23 Office Visit Emigdio Veronica III, MD [facility] [place] Adult Prim Care 05/26/23 Office Visit Scottie Campuzano PA-C [facility] [place] Adult Prim Care 05/05/23 Office Visit Emigdio Veronica III, MD [facility] [place] Adult Prim Care 04/26/23 Office Visit Scottie Campuzano PA-C [facility] [place] Adult Prim Care 03/15/23 Office Visit Emigdio Veronica III, MD [facility] [place] Adult Prim Care 02/24/23 Office Visit Scottie Campuzano PA-C [facility] [place] Adult Prim Care 02/16/23 Office Visit Scottie Campuzano PA-C [facility] Adult Prim Care Showing recent visits within past 540 days with a meds authorizing provider and meeting all other requirements Future Appointments Date Type Provider Dept 09/21/23 Appointment Emigdio Veronica III, MD [facility] Adult Prim Care Showing future appointments within next 150 days with a meds authorizing provider and meeting all other requirements Future appointment: Already Scheduled PAM IVEY RN 08/31/2023 11:49 documented in this encounter Plan of Treatment Upcoming Encounters Date Type Department Care Team (Late st Contact Info) Description 01/04/2025 13:00 EST Office Visit [facility] Ophthalmology - [address] [phone] Gagandeep Rome MD [address] [place] [address], [address] [place] [phone] 02/11/2025 13:30 EDT Telemedicine [facility] Hematology & Oncology [address] [phone] Dana Padilla MD [address] [place] [address], Level [address] [place] [phone] documented as of this encounter Visit Diagnoses Not on filedocumented in this encounter Discontinued Medications Medication Sig Discontinue Reason Start Date End Da te doxepin (SINEQUAN) 10 mg capsule Take 1-2 Capsules by mouth at bedtime. 06/29/2023 08/31/2023 documented as of this encounter Additional Health Concerns Infection Onset Date Last Indicated Resolved Time R/O COVID-19 09/07/2023 09/07/2023 09/07/2023 22:1 6 EDT documented as of this encounter Care Teams Fish Processor Relationship Specialty Start Date End Date Emigdio Veronica MD 2 [place] [phone] PCP - General Internal Medicine - Primary Care 05/22/20 02/21/24 None, Provider PCP - General 02/24/24 03/18/24 Gabriel Gandara PA PCP - General 03/19/24 09/11/24 Mirna Guerrero PA [address] [place] [address] PCP - General 09/12/24 Izabella Snowden, SUPERVISOR OF RESEARCH 1 [facility], 3rd [place] [phone] Airworthiness Inspector 02/21/23 05/03/24 documented as of this encounter
--- OUTSIDE RECORDS SUMMARY | 2024-11-22 16:53 | XMS_ITS | Encounter Summary ---
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 CM contacted Inpatient division sales manager Nguyen Palma regarding patient's admission. Nguyen updated that patient will be discharged today with Home Health Services. ?? Patient has been admitted to the hospital on: 09/08/23 for poor PO intake-final dx acute kidney injury Currently engaged with [facility] Adult Basic Education Instructor, 3 squares food assistance, [facility] Anticipate a challenging discharge or transition of care from the hospital no Other Information: N/A [facility] CM Contact: Izabella Snowden [phone] or [email or web address] DARNELL MCCORMICK 09/09/2023 10:09 documented in this encounter Plan of Treatment Upcoming Encounters Date Type Department Care Team (Late st Contact Info) Description 01/04/2025 13:00 EST Office Visit [facility] Ophthalmology - [facility] [address] [place], [place] [address] Gagandeep Rome MD 111 [facility], Level 5 [place] [address] 02/11/2025 13:30 EDT Telemedicine [facility] Hematology & Oncology - [address] [phone] Dana Padilla MD 111 [facility], Level [address] [place] [phone] documented as of this encounter Visit Diagnoses Not on filedocumented in this encounter Care Teams Imcu Nurse Relationship Specialty Start Date End Date Emigdio Veronica MD 2 [place] [address] PCP - General Internal Medicine - Primary Care 05/22/20 02/21/24 Izabella Snowden, [facility] 1 [facility], 3rd [place] [phone] Adult Basic Education Instructor 02/21/23 05/03/24 documented as of this encounter
--- OUTSIDE RECORDS SUMMARY | 2024-11-22 16:53 | XMS_ITS | Encounter Summary ---
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 Not on [...] Franca Marquez RN documented in this encounter Plan of Treatment Upcoming Encounters Date Type Department Care Team (Late st Contact Info) Description 01/04/2025 13:00 EST Office Visit [facility] Ophthalmology - [address] [id number] Gagandeep Rome MD [address] [place] [address], [facility] 5 [place] [phone] 02/11/2025 13:30 EDT Telemedicine [facility] Hematology & Oncology [address] [phone] Dana Padilla MD [address] [place] [address], [facility] 2 [place] [phone] documented as of this encounter Visit Diagnoses Not on filedocumented in this encounter Additional Health Concerns Infection Onset Date Last Indicated Resolved Time R/O COVID-19 09/07/2023 09/07/2023 09/07/2023 22:1 6 EDT documented as of this encounter Care Teams Specialty Trimmer Relationship Specialty Start Date End Date Emigdio Veronica MD 2 [place] [phone] PCP - General Internal Medicine - Primary Care 05/22/20 02/21/24 Izabella Snowden, [facility] 1 [facility], 3rd [place] [phone] Strap Making Machine Operator 02/21/23 05/03/24 documented as of this encounter
--- OUTSIDE RECORDS SUMMARY | 2024-11-22 16:53 | XMS_ITS | Encounter Summary ---
Author Organization [facility] Address [address] [place] [address] Care Team Providers Care Superintendent Compressor Stations Name Role Phone Emigdio Veronica MD Primary Care Provider + Izabella Snowden [facility] Unavailable [phone] Reason for Visit * Reason Comments Health Assistance Program Encounter Details Date Type Department Care Team (Late st Contact Info) Description 09/07/2023 Community Health Team [address], [facility] [address] [place] [address] [facility], Health Assistance Program [address] [place] [address] Social History Tobacco Use Types Packs/Day Years [...] 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 Automotive [employer] Counter Assistant (RC) called patient for scheduled appointment; patient unable to talk, roommates were still at home. ?? Patient requested another appointment today at a later time after roommates leave. RC will call patient at 10:30am. ?? RC called patient back at 10:30am for scheduled appointment. ?? Patient reports a rough night at her house and feeling like she could hurt herself. Patient reports she does not feel like that today. Patient states she has no plan to harm herself. RC asked a second time and patient stated she has no plan to harm herself. ?? Patient prioritized housing in [facility]. RC started the [facility] application with patient. ?? Patient has an application from [facility] [employer] in [place], this is no longer an option. ?? RC started [place] [facility] application ([place]) with patient. ?? Patient spoke with a woman regarding private apartments for rent in [place], [place]. She thinks thesewill be affordable and include heat; she would like to speak with the landlord directly. ?? RC scheduled an in-person appointment for 09/20/23 at 10:00am to sign applications. ?? RC texted patient the appointment time and address. Plan / Action Items: ?? Patient will call [employer] to find out if application is needed. ?? Patient will gather needed documents and remaining information to complete and sign housing applications. ?? RC will meet with patient on 09/20/23 at 10:00am at 1 [facility]. Lucie Yao 09/07/23 9:08 documented in this encounter Plan of Treatment Upcoming Encounters Date Type Department Care Team (Late st Contact Info) Description 01/04/2025 13:00 EST Office Visit [facility] Ophthalmology - [address] [phone] Gagandeep Rome MD [address] [place] [address], [facility] 5 [place] [phone] 02/11/2025 13:30 EDT Telemedicine [facility] Hematology & Oncology [address] [phone] Dana Padilla MD [address] [place] [address], [facility] 2 [place] [phone] documented as of this encounter Visit Diagnoses Not on filedocumented in this encounter Care Teams Superintendent Compressor Stations Relationship Specialty Start Date End Date Emigdio Veronica MD 2 [place] [address] PCP - General Internal Medicine - Primary Care 05/22/20 02/21/24 Izabella Snowden, GUARDIAN AD [employer]ITEM 1 [facility], 3rd [place] [address] Clin Tech 02/21/23 05/03/24 documented as of this encounter
--- OUTSIDE RECORDS SUMMARY | 2024-11-22 16:53 | XMS_ITS | Encounter Summary ---
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 THIS AFFLILATE MESSAGE SERVES CONFIRMATION THAT THIS CLIENT IS A CURRENT PATIENT IN YOUR PRACTICE AND THAT THE LISTED PROVIDER IN YOUR OFFICE WILL MANAGE HOME HEALTH FOR THIS CLIENT. PLEASE CALL OUR OFFICE IMMEDIATELY IF THIS IS NOT CORRECT. [phone]. Please REPLY ALL AND INCLUDE: P HH&H Intake Pool ([id number]) (NOT Triage please) Thank You Amelia Pereyra RN, [facility] intake & referral dept documented in this encounter Plan of Treatment Upcoming Encounters Date Type Department Care Team (Late st Contact Info) Description 01/04/2025 13:00 EST Office Visit [facility] Ophthalmology - [address] [phone] Gagandeep Rome MD [address] [place] [address], Level 5 [place] [address] 02/11/2025 13:30 EDT Telemedicine [facility] Hematology & Oncology - [address] [place] [address], [place] [phone] Dana Padilla MD 111 [facility], [facility], Level 2 [place] [phone] documented as of this encounter Visit Diagnoses Not on filedocumented in this encounter Care Teams Line Tender Flakeboard Relationship Specialty Start Date End Date Emigdio Mehta MD 2 [place] [phone] PCP - General Internal Medicine - Primary Care 05/22/20 02/21/24 Izabella Snowden, [facility] 1 [facility], 3rd [place] [phone] Dater Assembler 02/21/23 05/03/24 documented as of this encounter
--- OUTSIDE RECORDS SUMMARY | 2024-11-22 16:53 | XMS_ITS | Encounter Summary ---
Author Organization [facility] Address [address] [place] [address] Care Team Providers Care Car Trimmer Name Role Phone Emigdio Veronica MD Primary Care Provider + Izabella Snowden [facility] Unavailable [phone] Reason for Visit * Reason Comments Depression Fatigue * Auth/Cert (Routine) Specialty Diagnoses / Procedures Referred By Contac t Referred To Contact Diagnoses MUSA (acute kidney injury) ([facility]) Referral ID Status Reason Start Date Expiration Date Visits Re quested Visits Authorized [id number] 1 1 Encounter Details Date Type Department Care Team (Late st Contact Info) Description 09/07/2023 16:00 EDT Office Visit [facility] Adult Primary Care - [place] [address] [place] [address] Scottie Campuzano PA-C 2 [place] [phone] Light headed (Primary Dx); Hypotension, unspecified hypotension type; Vomiting, unspecified vomiting type, unspecified whether nausea present Social History Tobacco Use Types Packs/Day Years [...] 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 Answer Date of Assessment Author No 04/29/2023 11:26 EDT Franca Marquez RN * Are you blind or do you have serious difficulty seeing, even when wearing glasses? Answer Date of Assessment Author No 04/29/2023 11:26 EDT Franca Marquez RN * Do you have serious difficulty [...] Date of Assessment Author No 04/29/2023 11:26 DAVIDT Franca Marquez RN documented as of this encounter Mental Status * Because of a physical, mental, or emotional condition, do you have serious difficulty concentrating, remembering, or making decisions? (5 years old or older) Answer Entry Date Author No 04/29/2023 11:26 EDT Fracna Marquez RN documented in this encounter Progress Notes * Karol Hoff RN - 09/07/2023 1600 EDT Report called to [facility] triage nurse at [facility] ED. * Pam Ivey RN - 09/07/2023 1600 EDT Phone call to EMS to bring Pt to [facility] ED. * Tessie Augustine LPN - 09/07/2023 1600 EDT POCT glucose performed . Patient consent acquired. Tolerated well. Result 101. POCT result entered. I was supervised by Scottie Campuzano PA-C who was present and immediately available in the office suite. TESSIE AUGUSTINE LPN 09/07/2023 16:58 * Scottie Campuzano PA-C - 09/07/2023 1600 EDT Subjective: Patient ID: Tara Yun is an 63 y.o. female. Chief Complaint Patient presents with ??? Depression ??? Fatigue FINA Avery was scheduled to see me today because of depression. However, when she arrived at the office she was very weak and appeared close to physical collapse. One of the nurses got her in a wheelchair and brought her into an exam room. She said that she has been feeling weaker and weaker over the past 7 to 10 days. She explains that she has not eaten for 8 days. She feels quite dehydrated. She says her urine has been very dark. She says that she has gone off some of her medications recently, and that her medications are all messed up. She quit smoking 8 days ago because she knows that she needs to quit for her health. She says she has a cough,, and chest congestions. She says she has been having dry heaves for days. She has not been eating. She has epigastric pain that she thinks might be a result of her vomiting, or perhaps is the cause of her vomiting. Patient Active Problem List Diagnosis ??? Pancytopenia (HCC) ??? Mild persistent asthma without complication ??? Drug-seeking behavior ??? Splenic vein thrombosis ??? Chronic pain syndrome ??? Other cirrhosis of liver (HCC-CMS) ??? Obesity, Class II, BMI 35-39.9 ??? Hypothyroidism ??? Abdominal wall hernia ??? Allergic rhinitis ??? Partial small bowel obstruction (HCC-CMS) ??? HUEY (obstructive sleep apnea) ??? Nephrolithiasis ??? Left ureteral stone ??? COPD (chronic obstructive pulmonary disease) (HCC-CMS) (HCC) ??? Secondary hypercoagulable state (HCC-CMS) ??? Frequent falls ??? Fluid overload ??? Hypersplenism ??? 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HCC-CMS) ??? Chronic respiratory failure with hypoxia (HCC-CMS) ??? Peptic ulcer disease with hemorrhage ??? Thrombocytopenia (HCC-CMS) ??? Acute pulmonary edema (HCC-CMS) ??? Cirrhosis (HCC-CMS) ??? History of bleeding ulcers ??? Superior mesenteric vein thrombosis (HCC-CMS) ??? Right foot pain ??? Chronic insomnia ??? Mixed anxiety and depressive disorder ??? Stage 3a chronic kidney disease (HCC-CMS) ??? Hematemesis, unspecified whether nausea present ??? Hematemesis Outpatient Medications Marked as Taking for the 09/07/23 encounter (Office Visit) with Scottie Campuzano PA-C Medication Sig Note Dispense Refill ??? albuterol 90 mcg/actuation inhaler Inhale 1-2 Puffs as directed every 4 hours as needed for Wheezing. 1 Each 1 ??? diclofenac sodium gel Apply 2 g topically 2 times daily as needed for Pain (Knee pain). 50 g 1 ??? doxepin (SINEQUAN) 10 mg capsule TAKE 1 TO 2 CAPSULES BY MOUTH AT BEDTIME 180 Capsule 3 ??? enoxaparin (LOVENOX) 60 mg/0.6 mL injection Inject 60 mg into the skin daily. 54 mL 3 ??? fluticasone propionate (FLOVENT DISKUS) 100 mcg/actuation blister with device ??? furosemide (LASIX) 20 mg tablet TAKE 3 TABLETS EVERY DAY. IF FLUID IN LEGS IS WELL CONTROLLED THEN CUT DOWN TO 2 EVERY DAY. 90 Tablet 1 ??? gabapentin (NEURONTIN) 300 mg capsule TAKE 1 CAPSULE BY MOUTH THREE TIMES A DAY 270 Capsule 0 ??? INCRUSE ELLIPTA 62.5 mcg/actuation INHALE 1 PUFF BY MOUTH DIRECTED DAILY 30 Each 0 ??? lactulose (CHRONULAC) 10 gram/15 mL solution TAKE 15-30ML BY MOUTH DAILY NEEDED (CONSTIPATION. TARGET GOAL OF TWO BOWEL MOVEMENTS DAILY). 2838 mL 1 ??? levothyroxine (SYNTHROID) 25 mcg tablet TAKE 1 TABLET BY MOUTH EVERY DAY 90 Tablet 1 ??? naloxone (NARCAN) 4 mg/actuation nasal spray 0.1 mL by nasal route as needed for Opioid Reversal. Repeat every 2-3 minutes if not effective and overdose is suspected. (spray is harmless in excess). 1 Each 1 ??? ondansetron (ZOFRAN) 4 mg tablet TAKE 1 TABLET BY MOUTH EVERY 8 HOURS NEEDED FOR NAUSEA 90 Tablet 0 ??? oxyCODONE (ROXICODONE) 5 mg immediate release tablet Take 1 Tablet by mouth 3 times daily as needed for up to 28 days for Pain. Daily Max: 15 mg 09/07/2023: 3x a day with no food 84 Tablet 0 ??? spironolactone (ALDACTONE) 100 mg tablet Take 0.5 Tablets by mouth daily. ??? sucralfate (CARAFATE) 1 gram tablet TAKE 1 TABLET BY MOUTH FOUR TIMES A DAY 120 Tablet 3 ??? venlafaxine (EFFEXOR-XR) 150 mg XR capsule Take 1 Capsule by mouth daily. (total daily dose of this medication is 150 mg). 90 Capsule 3 ROS - See HPI Objective: BP 91/49 (BP Cuff Location: Left arm, BP Patient Position: Sitting, BP Cuff Sizes: Adult, large) Pulse 91 Temp 36.6 ??C (97.9 ??F) (Tympanic) Resp rate 16 Physical Exam Gena appears tired. She is alert. She speaks softly. She is disheveled and unkempt. Her respiratory rate is 16. Heart rate 70, very weak radial pulse. Mood depressed. Affect flat. Assessment / Plan: Hypotensive, likely from dehydration. Light-headed Gena says she has not eaten for 8 days. She clearly cannot go home in the state she is in. She is at high risk of falling, and risk of serious medical decompensation due to dehydration, hypotension, and anorexia. She is in need of a comprehensive medical evaluation today, and observation probably likely needs intravenous fluids. May need hospitalization. We called for an ambulance to transport the patient to the emergency department. I spoke briefly with the paramedics when they arrived, and Gena was carefully transferred from wheelchair to the stretcher. She remained essentially comfortable and alert throughout the encounter today. Tara was seen today for depression and fatigue. Diagnoses and all orders for this visit: Light headed - Cancel: POCT GLUCOSE, INTERFACED - POCT GLUCOSE, MANUAL ENTRY No orders of the defined types were placed in this encounter. Orders Placed This Encounter Procedures ??? POCT Glucose, Manual Entry Order Specific Question: Results Release to Patient (Note: Choosing Manual Release will only block results from tests performed at [facility] and does not apply for Miscellaneous Test Order) Answer: Immediate via [facility] Scottie Campuzano PA-C Next appt at [facility] Office: 09/21/2023 09/07/2023 16:51 documented in this encounter Plan of Treatment Upcoming Encounters Date Type Department Care Team (Late st Contact Info) Description 01/04/2025 13:00 EST Office Visit [facility] Ophthalmology - [address] [phone] Gagandeep Rome MD [address] [place] [address] 5 [place] [address] 02/11/2025 13:30 EDT Telemedicine [facility] Hematology & Oncology [address] [phone] Dana Padilla MD [address] [place] [address], [facility] 2 [place] [address] documented as of this encounter Procedures Procedure Name Priority Date/Time Associated Diagnosis Comments POCT GLUCOSE, MANUAL ENTRY Routine 09/07/2023 Light headed documented in this encounter Results * (ABNORMAL) POCT GLUCOSE, MANUAL ENTRY (09/07/2023) Glucose, POC 101(A) 70 - 100 mg/dL [facility] POINT OF CARE HN LAB POC COMMENT MANUAL (GLUCOSE) [facility] POINT OF song writer ID [facility] POIN T OF CARE Blood CAPILLARY BLOOD / Unknown 09/07/2023 Scottie Campuzano PA-C POINT OF CARE TEST ORDERABLES Final Result Performing Organization Address City/State/[facility] Co mo Phone Number [facility] POINT OF CARE documented in this encounter Visit Diagnoses Diagnosis Light headed- Primary Dizziness and giddiness Hypotension, unspecified hypotension type Vomiting, unspecified vomiting type, unspecified whether nausea present documented in this encounter Care Teams Car Trimmer Relationship Specialty Start Date End Date Emigdio Veronica MD 2 [place] [phone] PCP - General Internal Medicine - Primary Care 05/22/20 02/21/24 Izabella Snowden, [facility] 1 [facility], 3rd [place] [phone] Procurement Consultant 02/21/23 05/03/24 documented as of this encounter
--- OUTSIDE RECORDS SUMMARY | 2024-11-22 16:53 | XMS_ITS | Encounter Summary ---
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 * Telephone Encounter - Emigdio Veronica III, MD - 10/05/2023 1254 EST Letter signed. * Telephone Encounter - Karol Hoff RN - 10/05/2023 0850 EST Please see pended letter for housing. Please send back to triage. * Telephone Encounter - Karol Hoff RN - 10/04/2023 1601 EST Spoke to patient who will move to new apartment in November. She is requesting a letter for Emergency Housing outlining why she needs Emergency Housing for October to be able to stay in a Hotel and that her dog is an emotional support dog. Communicating with Erika Snowden LCSW and Lucie Yao on needed wording. Requesting letter be faxed to attn Emergency Housing. * Telephone Encounter - Noemi Hall - 10/04/2023 1500 EST Patient states she needs to follow up with Karol Hoff regarding some details for getting a new appartment * Telephone Encounter - Karol Hoff RN - 09/16/2023 1559 EDT Spoke to patient and outlined plan with her that Dolly from [employer] will call her eithertoday or next week. Patient doesn't recall speaking to any women, specifically Tata Pérez other than the nurses working with her and her 1:1 while in the ED. * Telephone Encounter - Cynthia Huang - 09/16/2023 1454 EDT Pt returning call to Karol. * Telephone Encounter - Emigdio Veronica III, MD - 09/16/2023 1428 EDT Agree with follow-up appointment as scheduled. Agree with plan to leave her current apartment for this weekend. I discussed her case with her psychotherapist social worker Erika today who will also be reaching out. She should continue to hold her diuretics until she is eating and drinking regularly. * Telephone Encounter - Karol Hoff RN - 09/16/2023 1043 EDT Spoke to patient about her recent ED visit. She reports it was a disaster. She is aware medicallyher CT scan and labs all came back as either WNL or near normal limits. She reports she arrived to the ED via ambulance around 4 pm and wasn't seen by a provider and was seen by someone from [facility] around 3:30 am, for just a few minutes and they said I wasn't a threat to myself and should go home. Patient reports she asked to be able to stay in patient for a day or two needed to get my head together, but she was not admitted. Patient is still having intermittent thoughts of self harm, but they are not as frequent as they were 09/14 and she does not believe she will follow through and has no plans to. She found the hydroxyzine she was discharged with only mildly helpful, did advise her she could take 1-2 tabs per the last order from Dr Veronica. She does have a local grandchild she is hoping she will be able to visit this weekend. Patient reports the only food she attempted to eatat the hospital she vomited. Since the hospital she hasn't tried to eat any solid food, but is ableto keep sips of water down. She has a follow up appointment with PCP on 09/21. documented in this encounter Plan of Treatment Upcoming Encounters Date Type Department Care Team (Late st Contact Info) Description 01/04/2025 13:00 EST Office Visit [facility] Ophthalmology [address] [phone] Gagandeep Rome MD [address] [place] [address], [facility] 5 [place] [phone] 02/11/2025 13:30 EDT Telemedicine [facility] Hematology & Oncology [address] [phone] Dana Padilla MD [address] [place] [address], [facility] 2 [place] [phone] documented as of this encounter Visit Diagnoses Not on filedocumented in this encounter Care Teams Applique Cutter Relationship Specialty Start Date End Date Emigdio Veronica MD 2 [place] [address] PCP - General Internal Medicine - Primary Care 05/22/20 02/21/24 Izabella Snowden, UNIVERSITY INTERN 1 [facility], 3rd [place] [address] Mixed Crop And Livestock Farmer 02/21/23 05/03/24 documented as of this encounter
--- OUTSIDE RECORDS SUMMARY | 2024-11-22 16:53 | XMS_ITS | Encounter Summary ---
Author Organization [facility] Address [address] [place] [address] Care Team Providers Care Container Coordinator Name Role Phone Emigdio Veronica MD Primary Care Provider + Izabella Snowden 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 Traffic Control Technician (RC) called and spoke with patient. Patient has prioritized housing in the [facility] and would like to complete housing applications. ?? RC scheduled phone appointment with patient to begin applications. Plan / Action Items: ?? RC will call patient for scheduled appointment on 09/07/23 at 9:00am. Lucie Yao 09/05/23 16:45 documented in this encounter Plan of Treatment Upcoming Encounters Date Type Department Care Team (Late st Contact Info) Description 01/04/2025 13:00 EST Office Visit [facility] Ophthalmology - [address] [id number] Gagandeep Rome MD [address] [place] [address] [address] [place] [phone] 02/11/2025 13:30 EDT Telemedicine [facility] Hematology & Oncology [address] [id number] Dana Padilla MD [address] [place] [address], [facility] [address] [place] [phone] documented as of this encounter Visit Diagnoses Not on filedocumented in this encounter Care Teams Container Coordinator Relationship Specialty Start Date End Date Emigdio Veronica MD [address] [place] [phone] PCP - General Internal Medicine - Primary Care 05/22/20 02/21/24 Izabella Snowden, [facility] 1 [facility], [address] [place] [address] Marine Engineering Teacher 02/21/23 05/03/24 documented as of this encounter
--- OUTSIDE RECORDS SUMMARY | 2024-11-22 16:53 | XMS_ITS | Encounter Summary ---
Author Organization [facility] Address [address] [place] [address] Care Team Providers Care Motor Builder Assembler Name Role Phone Emigdio Veronica MD Primary Care Provider + Izabella Snowden [facility] Unavailable Reason for Referral * Referral (Routine/Next Available) - New Request Specialty Diagnoses / Procedures Referred By [facility] Referred To Contact Diagnoses Other cirrhosis of liver (HCC-CMS) Chronic respiratory failure with hypoxia (HCC-CMS) Loree Lopez DO [address] [place] [address] Phone: tel: fax: [facility] [address] Phone: tel: fax: Referral ID Status Reason Start Date Expiration Date Visits Requested Visits Authorized [id number] New Request Specialty Services Required 3 1 1 Question Answer I certify that this patient is under my care and that I, or another Medicare allowed practitioner (DO DESIRE, IVA) working with me, had a uded-di-ojke encounter with this patient on this date: 09/08/2023 The discharge summary or progress note will provide further details that support the need for the home health services and the plan of care. Yes Enter the allowed practitioner (DO DESIRE, IVA) who will provide oversight of this patient's home heatlh care needs and plan of care Dr. Veronica Some payers require a patient to be homebound to qualify for home health services. Homebound definition: Absences from home are infrequent or for relatively short duration (such as for medical appointments). Is patient HOMEBOUND? Yes The patient? s homebound status is related to the following diagnoses, illness or condition (describe): COPD, ROBB The patient has a condition due to an illness or injury that restricts the ability to leave home except with: Assistance/Support device Assistive device Walker Leaving home requires a considerable and taxing effort with mobility limited by the following (criteria 1): Dyspnea Leaving home requires a considerable and taxing effort with mobility limited by the following (criteria 2): Impaired endurance Skilled care requested: Nursing (includes assessment, treatment, disease management/education, wound care) Nursing skilled care requested: Nursing assessment, Disease management MCFP assessment needed related to this encounter: Pain Control Snf Referral - Disease Mgmt and Education about: COPD Reason for Visit * Reason Comments Weakness BIBA from PCP office for 8 days of increasing lethargy and decreased PO intake (only drinking small sips of ice water) and intermittent SOB. BGL of 121, 12 lead NSR, ambulatory at PCP office per EMS. Pt has known blood clots in her splenic vein and is currently c/o abdominal pain. * Auth/Cert (Routine) Specialty Diagnoses / Procedures Referred By Contac t Referred To Contact Diagnoses MUSA (acute kidney injury) ([facility]) Referral ID Status Reason Start Date Expiration Date Visits Re quested Visits Authorized [id number] 1 1 Encounter Details Date Type Department Care Team (Late st Contact Info) Description 09/07/2023 17:46 EDT - 09/09/2023 15:18 EDT Hospital Encounter [facility] General Medicine Unit [address] [place] [id number] Laurent Douglas MD [address] [place] [address], [address] [place] [address] Adrienne Dickens MD [address] [facility], [address] [place] [address] Anna Martin MD [address] [phone] Deepti Peterson MD [address] [phone] Harris Valle MD [address] [place] [phone] MUSA (acute kidney injury) (HCC-CMS) (Primary Dx); Hypokalemia; Other cirrhosis of liver (HCC-CMS); Chronic respiratory failure with hypoxia (HCC-CMS) Discharge Disposition: Home-Health Care [facility] Social History Tobacco Use Types Packs/Day Years [...] 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 Not on file Not on file Not o n file documented as of this encounter Last Filed Vital Signs Vital Sign Reading Time Taken Comments Blood Pressure 124/83 09/09/2023 1342 EDT Pulse 83 09/09/2023 0500 EDT Temperature 37.2 ??C (99 ??F) 09/09/2023 1342 EDT Respiratory Rate 16 09/09/2023 1342 EDT Oxygen Saturation 93% 09/09/2023 1342 EDT Inhaled Oxygen Concentration - - Weight 103.6 kg (228 lb 6.4 oz) 09/09/2023 0558 EDT Height 162.6 cm (5' 4) 09/08/2023 1708 EDT Body Mass Index 39.2 09/08/2023 1708 EDT documented in this encounter Functional Status * Are you deaf or do you have serious difficulty hearing? Answer Date of Assessment Author No 09/08/2023 17:08 DAVIDT Aj Gray, RN * Are you blind or do [...] Hall RN documented in this encounter Discharge Summaries * Loree Lopez DO - 09/09/2023 1014 EDT HOSPITAL MEDICINE DISCHARGE SUMMARY Primary Care Provider: Emigdio Veronica III Attending Physician: Harris Valle II* Admit Date: 09/08/23 Discharge Date: 09/09/23 Disposition (location): home with home health PT Condition at Discharge: Stable Reason for Admission (chief complaint): poor PO intake Principal/Final Diagnosis: MUSA (acute kidney injury) ([facility]) Additional Problems Managed in the Hospital: Active Hospital Problems Diagnosis Date Noted *MUSA (acute kidney injury) ([facility]) 09/08/2023 Hypokalemia 09/08/2023 Chronic respiratory failure with hypoxia ([facility]) 10/02/2021 Other cirrhosis of liver ([facility]) 09/30/2017 -NAFLD related cirrhosis with history of decompensation, chronic portal htn, hepatic encephalopathy, small esophageal varices on EGD in 2019, thrombocytopenia/hypersplenism, portal gastropathy -s/p partial splenic embolization (09/28/21) -portal vein thrombosis -Hep C Past provider: Dr. Ijeoma Smith, GI Department in [facility] for long-standing decompensated liver cirrhosis Resolved Hospital Problems No resolved problems to display. Transition of care: [facility] Transition of Care report automatically routed to PCP office on discharge.Additional handoff communication performed via: Phone or Verbal, appointment scheduled for with PCP office. Clinical Issues Needing Follow-up 1. Pertinent medication changes: - hold furosemide and spironolactone 09/09 and 09/10, resume Tuesday 09/11 as long as patient is continuing to have good PO intake, instructions carefully reviewed with patient at the bedside 2. Recommended follow-up tests/procedures needed: - follow up with your PCP office with Dr. Matthews on 09/12/23 at 9 a.m. - recommend BMP in one week 3. Anticoagulation on discharge: patient on home enoxaparin for chronic splenic vein thrombosis Recent Labs 09/09/23 0828 INR 1.2* 4. 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 Patient shared that she presented to her PCP with poor PO intake for 8 days. On admission, she was found to have acute kidney injury with creatinine elevated to 1.46. Medications were optimized for renal function and SEARCH OPTIMIZATION ANALYST diuretics temporarily held. IV fluids started and kidney function improved s/p fluids. Pt tolerating PO intake at time of discharge. Pt evaluated by PT forrecent falls and recommended discharge home with home health PT, referral for which has been placed. Relevant Imaging/Procedures Performed: CT RENAL STONE Result Date: 09/08/2023 1. No urinary tract calculi or obstruction 2. No significant change left upper quadrant including splenomegaly, splenic infarct, embolization coils, 3. Splenomegaly with chronic infarct, embolizationcoils, trace adjacent fluid 4. Cirrhosis, portal hypertension. 5. Stable dilatation of the portal/splenic vein reflecting chronic thrombus, allowing for noncontrast technique 6. Colonic diverticulosis 7. Stable small left adrenal adenoma I have personally reviewed the images and the above interpretation and agree with the findings. [id number] CT ABDOMEN PELVIS WO CONTRAST Result Date: 08/18/2023 1. No acute abnormality in the abdomen/pelvis. Specifically, no evidence of left ureteral calculus.2. Splenomegaly with chronic infarct, not appreciably changed. 3. Cirrhotic configuration of the liver. 4. Dilation of the portal/splenic vein reflecting chronic thrombus, limited assessment for interval change given noncontrast technique. 5. Colonic diverticulosis without evidence of diverticulitis. 6. Stable left adrenal nodule, likely left adrenal adenoma. 7. Atherosclerosis. I have personallyreviewed the images and the above interpretation and agree with the findings. [id number] Results Pending at Discharge: Test results still pending from this admission Procedure Component Value Units Date/Time Bacterial Culture, Blood [[id number]] Collected: 09/07/231937 Lab Status: In process Specimen: Blood, Venous Updated: 09/07/232238 Bacterial Culture, Blood [[id number]] Collected: 09/07/231937 Lab Status: In process Specimen: Blood, Venous Updated: 09/07/232056 Upcoming Appointments Sep 12, 2023 9:00 (Arrive by 8:45) Follow Up Visit with Osmany Matthews MD [facility] [place] ([facility]) [address] [facility] [address] Sep 21, 2023 15:00 (Arrive by 14:45) Office Visit Medium with Emigdio Veronica III, MD [facility] [place] ([facility]) [address] [place] [address] Oct 10, 2023 16:30 (Arrive by 16:15) Follow Up Visit with Dana Padilla MD [facility] On[facility] - [facility] ([facility]) [address] [facility] [address] Nov 01, 2023 13:15 New Patient Visit with Lon Ortez MD [facility] Urology - [facility] (--) [address] [facility] [address] LOREE ROSSY KOCH 09/09/2023 10:14 Family Medicine PGY-1 Epic Secure Chat Cosigned by Harris Valle III, MD at 09/09/2023 15:06 EDT Associated attestation - Harris Valle MD - 09/09/2023 1506 EDT Attestation: I saw and evaluated the patient for discharge. I agree with the resident's/fellow's note. I personally spent > 30 minutes in discharging services for this patient. Tara was admitted with acute kidney injury related to poor hydration after reduced PO intake. She improved rapidly with IVF and made a miraculously rapid recovery, improving much quicker than anticipated. She was able to maintain PO hydration during her admission and felt stable for discharge on09/09/23. She will hold her diuretics an additional day to allow ongoing renal recovery, and then resume her SEARCH OPTIMIZATION ANALYST dosing. Mild hypokalemia resolved by discharge. No other med changes were made during this admission. Of note, she has a history of cirrhosis without evidence of acute decompensation during this admission. Harris Valle MD Family Medicine 09/09/23 documented in this encounter Discharge Instructions * Discharge Instr - AVS First Page* Loree Lopez DO - 09/09/2023 9:46 EDT As we reviewed, please do not take your furosemide (Lasix) or spironolactone (Aldactone) today or tomorrow. START taking these medications again on Tuesday09/11/23, as long as you are eating and drinking normally. You have a follow-up appointment with your PCP office on 09/12/23 at 9 a.m. If you have worsening or new symptoms, follow up sooner and if needed go to urgent care or the Emergency Department. * Attachments The following attachments cannot be sent through Care Everywhere. * Liver Disease Diet (Palestinian) * Kidney Basics: General Info (Palestinian) documented in this encounter Medications at Time [...] 02/24/2023 4 documented as of this encounter Discharge Disposition Disposition Code Departure Means Destination Comment s Home-Health Care [facility] Home documented in this encounter Progress Notes * Vazquez Gray RN - 09/09/2023 1515 EDT Nursing Discharge Note D: Patient noted with discharge orders to: [facility]. A: No prescription changes were made. Reviewed discharge instructions with Patient IV d/c'd. Belongings collected and sent home with patient. R: Patient verbalized understanding of discharge instructions and denied further questions. VAZQUEZ GRAY RN 09/09/23 15:16 * Angie Blunt RN - 09/09/2023 1008 EDT Tara Boothe 1960 MUSA (acute kidney injury) ([facility]) Chart review completed and discussed the plan of care with the direct care RN and/or primary care team. Primary Insurance: [facility] Medicare Secondary Insurance: Medicaid Patient with no apparent Case Management needs at this time. No housing, transportation, insurance,resources concerns identified at this time. Supports in place to achieve a safe post-hospital transition. No identified barriers to accessing necessary care and/or follow-up after discharge. astronomy instructor/Director Of Dance will continue to follow patient's progress and remain available if situation changes for coordination of care, psychosocial support and/or discharge planning. Patient discharging home today with [facility]. No further CM needs at this time. Angie Blunt RN, MSN, CCM Case Management [place] [address] pager [phone] ANGIE BLUNT RN 09/09/2023 10:08 * Leonarda Manjarrez RT - 09/08/20232147 EDT Respiratory Nocturnal BIPAP/CPAP Heart Rate: 77 BPM, Resp: 18, SpO2: 95 %, Breath Sounds Bilateral: Diminished Patient was placed on Device Type: Resmed Home Unit, Settings were 16/2/2L Bleed in. Pt tolerating well Comments: 09/08/232124 Vitals Heart Rate 77 BPM Resp 18 SpO2 95 % Oxygen Therapy / Pulse Ox O2 Flow Rate (L/min) 2 l/min O2 Device CPAP Breath Sounds Breath Sounds Bilateral Diminished Breath Sounds Right Diminished Breath Sounds Left Diminished NIV Ventilation Device Type Device Type Resmed Home Unit Mode Vauto/Auto Bipap Mask Type Nasal mask Mask/Prong Size M/L Chin Strap In Place No MDPRI (Med Dev Pressure Related Inj) 4 NIV Skin Assessment Skin/tissue intact NIV Settings $ NIV Charge (initial or subsequent) [place] [id number] NIV Device Days 1 Days Check w/ Assessment Yes IPAP Max 16 cmH2O Auto-Titrate Yes EPAP Min 4 cmH2O Respiratory Assessment * Level of Consciousness Alert Respiratory Pattern Dyspnea with exertion Drainage/Secretions Cough Nonproductive RT JHONNY 09/08/23 * Vazquez Gray RN - 09/08/2023 1832 EDT FOUR EYES SKIN ASSESSMENT Four Eyes skin assessment was performed on admission to the unit by Vazquez Gray RN and Fausto Geller RN. Patient has the following devices at the time of this assessment: nasal cannula. Device related pressure injury present? No Areas of concern: Fill in detail for areas of concern [] Occiput [] Nose [] Ear [] Lip [] Scapula [] Spinous process [] Shoulder [] Elbow [] Iliac crest [] Sacrum/coccyx [] Ischial tuberosity [] Trochanter [] Knee [] Malleolus [] Heel [] Toe [x] Other: Abdominal folds Abdominal folds of minor concern - appears to be in a healing state of MAD. [place] to purple, but closed and clean. Applied interdry and provided education on site care to ensure healing continued. Last Sajan Score: 19 09/08/2023 18:33 * Katherin Reddy PT - 09/08/2023 1503 EDT [facility] Rehabilitation Therapy Acute Therapies [facility] Physical Therapy Initial Evaluation/Discontinue Note Date of Service: 09/08/2023 Reason for Referral: Evaluate and treat Precautions: Up with assistance SUBJECTIVE: I'm a little lightheaded. Pain: Location: abdominal pain Pt reports this is baseline OBJECTIVE: Reason for hospitalization: MUSA with associated weakness PatientProfile: Patient is a 63 y.o. female admitted on 09/07/2023 secondary to MUSA (acute kidney injury) ([facility]) [N17.9] The patient lives at [address] [place] [phone] Home environment Lives: with roommates, pt reports this is a difficult situation and she would like to find other housing Caregiver Support: No assistance available Equipment Available: Cane and Rolling walker Home Environment: has walk in shower stall Home Layout: One story. Entry stairs No stairs Prior Level of Function: Independent Services prior to admission: None Work/Leisure: Need to clarify Medical/Surgical History: CURRENT: The patient has Pancytopenia (HCC); Mild persistent asthma without complication; Drug-seeking behavior; Splenic vein thrombosis; Chronic pain syndrome; Other cirrhosis of liver (HCC-CMS); Obesity, Class II, BMI 35-39.9; Hypothyroidism; Abdominal wall hernia; Allergic rhinitis; Partial small bowel obstruction (HCC-CMS); HUEY (obstructive sleep apnea); Nephrolithiasis; Left ureteral stone; COPD (chronic obstructive pulmonary disease) (HCC-CMS) (HCC); Secondary hypercoagulable state (HCC-CMS); Frequent falls; Fluid overload; Hypersplenism; 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HCC-CMS); Chronic respiratory failure with hypoxia (HCC-CMS); Peptic ulcer disease with hemorrhage; Thrombocytopenia (HCC-CMS); Acute pulmonary edema (HCC-CMS); Cirrhosis (HCC-CMS); History of bleeding ulcers; Superior mesenteric vein thrombosis (HCC-CMS); Right foot pain; Chronic insomnia; Mixed anxiety and depressivedisorder; Stage 3a chronic kidney disease (HCC-CMS); Hematemesis, unspecified whether nausea present; Hematemesis; MUSA (acute kidney injury) (HCC-CMS); and Hypokalemia on their problem list. Medical history reviewed. Medications: Medications reviewed Arousal, Attention, and Cognition: Orientation: Alert Oriented to person, place, and time Vital Signs: Activity Heart rate (bpm) Blood Pressure (mmHg) Respiratory rate (breaths/min) Oxygen Sat/ Fractions of inspired Oxygen SPO2/FIO2 % supine 78 96/64 89 sitting 99/53 Patient vital signs stable and patient not symptomatic during examination/treatment. Other: N/A Integumentary/Anthropometric Characteristics: Palpation/Observation: gross skin assessment with no significant findings to areas without clothing/without dressings Posture: No problem noted Range of Motion and Joint Integrity: Within normal limits as demonstrated functionally. Muscle Performance: Manual muscle testing not formally performed in order to prioritize functional mobility. Strength observed to be at least 3/5 with gross movement. Sensation, Reflexes, and Nerve Integrity: Patient unable to participate in formal sensory testing but light touch sensation appears intact Neuromotor Function/Development: Pt able to move all limbs in isolation, no deficits in coordination noted with functional mobility. Balance: No loss of balance observed throughout physical therapy session. Balance deficits observed: static standing: requires supervision to maintain balance dynamic standing: requires minimal contact assist to maintain balance Mobility: During all activities performed this patient was provided cues and education. These were provided to give movement techniques to: optimize ability for patient to participate in and perform task, optimize patient safety and utilize pacing recommendations Rolling: supervision Supine to Sit: supervision Sit to Supine: supervision Sit to Stand: supervision with no device Stand to Sit: supervision with no device Transfers: minimal contact assistance with no device Gait: Gait: Patient ambulated 50 feetx2 with no device and minimal contact assistance level of assist. Gait quality: reciprocal gait pattern: , step length: equal and short, stance time: equal and slow gait speed, widened base of support Self-Care, Home Management, Work, and Leisure: N/E at this time Informed Consent: The patient consented to the physical therapy evaluation. The patient agrees to and understands the physical therapy treatment plan and goals. Interventions Completed Today: Physical Therapy today at: 1502 Total treatment time: 20 minutes. Timed code treatment minutes: na Intervention included: No interventions completed today Patient/Family Education: Topic: Activity pacing/Energy conservation Balance Bed mobility Discharge planning Gait Precautions/protocol Role of therapy Transfers Learner: patient Method: verbal and demonstration Barriers to Learning: none noted Outcome: verbalized understanding and returned demonstration Team Communication: Nurse Face to face communication Prior to therapy session, During therapy session and After therapy session Performance during Physical Therapy and recommendations for mobility with nursing, Discharge recommendations, Mobility recommendations and Patient status ASSESSMENT: Physical Therapy Diagnosis: This patient presents with a Physical Therapy diagnosis of :Impaired mobility impacted by impairments of: activity tolerance, balance, endurance and standing tolerance Pt is agreeable to participation in therapy session and tolerates session well; baseline abdominal pain reported and does not increase with mobility, no LOB or SOB during ambulation, vitals stable. Pt demonstrates transfers from EOB and toilet and bed mobility with supervision, ambulates without device, CGA and good pacing/ safety awareness. Pt demonstrates adequate safety awareness and strength/balance/endurance for safe DC home. No DME needs or DC needs at this time, pt is agreeable to this plan. Physical Therapy Prognosis: Physical therapy is medically necessary to: address these body structure/function impairments, activity limitations, and participation restrictions, establish and progress mobility/exercise and provide recommendations for staff and safe discharge planning, facilitate return to prior level of function and improve safety and independence Current status compared to baseline level of function: expected to be at or near prior level of function. Anticipated rate of progress: steady Progress may be affected by the following: strengths: baseline knowledge, capacity for carryover of new learning, cognition, motivation, pain control, participation level, previous level of function and safety awareness barriers: limited support Discharge recommendations: home independently Long-Term Goals: 1 day - MET ??? The patient will be able to perform bed mobility with supervision demonstrating appropriate sequencing/motor planning. ??? The patient will be able to perform transfers with supervision while demonstrating an effectivestrategy for recovery of loss of balance. ??? The patient will be able to ambulate with minimal contact assistance with no loss of balance onlevel surfaces 50 feet without assistive device as needed. ??? The patient and/or caregiver will be aware of the PT recommendations provided and verbalize and/or demonstrate understanding of the recommendations. PLAN: Discontinue acute care PT. Continue mobility with nursing assistance while hospitalized. Recommended Discharge Destination: Home alone Recommended Discharge Services: Home health physical therapy Recommended Equipment Needs: No equipment necessary; pt has all necessary equipment Other recommendations: No other consults recommended at this time Pager: [phone] Katherin Reddy PT * Deepti Peterson MD - 09/08/2023 0738 EDT Medicine Progress Note Service Date: 09/08/2023 Admit Date: 09/07/2023 17:46 Reason for Admission: 63 y.o. female admitted with a chief complaint of poor PO intake and now witha principal diagnosis of MUSA. 24 Hour Events: Admitted to medicine for management of MUSA Subjective/Objective Subjective Tara Boothe is a 63 y.o. 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 Patient shares that she presented to her PCP today with poor PO intake for 8days. Gena was sitting up and responding to questions this morning. She confirmed that she's here for poor PO intake and a subsequent MUSA. She denies any fever or diaphoresis. She endorses unintentionalweight loss. She endorsed some darker- colored diarrhea but did not describe stools consistent with melena or hematochezia. She describes experiencing orthostatic hypotension, but also mentions that she has new vertigo/dizziness when she lays down. She says that her vertigo/dizziness has caused several falls, most recently a few weeks ago. She endorses SOB at rest and with activity. Recently needed O2 during the day which was out of the ordinary for her. She endorses orthopnea. About one hour later, Tara started eating an omelette with some water. She said eating was feeling okay, she was pacing herself. Review of Systems A ten point review of systems was performed and was negative except for pertinent positives noted in the HPI Objective Vital Signs Temp: [36.5 ??C (97.7 ??F)-36.8 ??C (98.2 ??F)] , Heart Rate: [77 BPM-80 BPM] , Resp: [15-20] , BP:(91-107)/(49-77) , SpO2: [92 %-98 %] Weights 09/07/2023: 200lb 08/15/2023: 220lb 12/14/2022: 225lb 06/15/2022: 250lb 05/07/2022: 240lb 01/13/2022: 200lb Physical Exam General: Sitting with NC in place. NAD. HENT: Normocephalic, atraumatic. Dry, peeling lips. Some missing teeth. No scleral icterus Cardio: RRR, no murmurs. Normal S1/S2 Respiratory: Normal work of breathing on 2L NC, diffuse wheezes across all lung godwin Abdominal: Non-distended, soft, epigastric tenderness (patient attributes to 'clots'), mild tenderness diffusely without rebound or guarding. Extremities: WWP, trace edema, dry Derm: No rashes on exposed skin Neuro: Alert and oriented Psych: Normal mood and affect ?? Is PICC or central line present? No, PICC/Central line not present. Medications Reviewed: Changes notable for SEARCH OPTIMIZATION ANALYST lovenox switched to Heparin, SEARCH OPTIMIZATION ANALYST oxycodone switched to Dilaudid, SEARCH OPTIMIZATION ANALYST spironolactone and lasix held Labs Reviewed: Results notable for elevated creatinine to 146 (baseline 0.8), hypokalemia, chronic leukopenia and thrombocytopenia, and 3+ blood on UA. Na and Cl on the lower end of normal. Labs: CBC: Recent Labs 09/07/23181409/08/23408 WBC 3.69* 3.01* NEUTROABS 2.59 -- HGB 13.6 11.9 MCV 88 89 PLT 101* 92* Electrolytes: Recent Labs 09/07/23181409/08/23408 NA 139 137 K 3.2* 3.4* CL 98 99 CO2 27 29 BUN 16 15 CREATININE 1.46* 1.16* CALCGFR 40* 53* CALCIUM 8.9 8.3* Coags: Recent Labs 09/08/23408 PROTIME 13.7* INR 1.2* Hepatic function/Nutrition: Recent Labs 09/07/23181409/08/23408 AST 44 25 ALT 20 18 ALKPHOS 135* 93 TBIL 1.1 0.9 TP 8.1 6.6 LABALBU 4.5 3.7 LIPASE 114 -- UA: Recent Labs 09/08/23408 COLOR [place]* CLARITYU Hazy* GLUCOSEU Negative BILIRUBINUR Negative KETONES Negative LABSPEC 1.010 PHUR 5.5 PROTEINUA Negative UROBILINOGEN Normal NITRITE Negative LEUKESTER Negative WBCU 0 - 3 RBCU >50* BACTERIA None Seen LABCAST <=10 Imaging Reviewed: Results notable for see below. CT RENAL STONE ?? Result Date: 09/07/2023 1. No acute abnormality in the abdomen or pelvis. Specifically, no evidence of urinary calculus. 2.Splenomegaly with chronic infarct, unchanged 3. Cirrhotic configuration of the liver. 4. Stable dilatation of the portal/splenic vein reflecting chronic thrombus, which evaluation is limited given noncontrast technique 5. Colonic diverticulosis 6. Stable left adrenal nodule, likely adrenal adenoma ?? CT ABDOMEN PELVIS WO CONTRAST ?? Result Date: 08/18/2023 1. No acute abnormality in the abdomen/pelvis. Specifically, no evidence of left ureteral calculus.2. Splenomegaly with chronic infarct, not appreciably changed. 3. Cirrhotic configuration of the liver. 4. Dilation of the portal/splenic vein reflecting chronic thrombus, limited assessment for interval change given noncontrast technique. 5. Colonic diverticulosis without evidence of diverticulitis. 6. Stable left adrenal nodule, likely left adrenal adenoma. 7. Atherosclerosis. I have personallyreviewed the images and the above interpretation and agree with the findings. [id number] TRANSTHORACIC ECHO W DOPPLER Result date: 05/10/2022 1. LV EF: 67% 2. The right ventricular cavity was normal in size. Right ventricular systolic function was normal. Right ventricular wall thickness was normal. Assessment/Plan Assessment Tara Boothe is a 63 y.o. female with a PMHx significant for nephrolithiasis s/p ureteral stent placement, cirrhosis 2/2 NAFLD s/p TIPS c/b chronic splenic vein thrombosis (on Lovenox), COPD (on 2L), HUEY (not on CPAP), chronic pain (on opioids), CKD3, pancytopenia, UGIB 2/2 duodenal ulcer (2020), depression, dizziness who presents with 8 days of poor p.o. intake, weakness and fever with a new MUSA which is likely prerenal in the setting of poor p.o. intake and continued diuretic use and electrolyte abnormalities consistent with recent emesis. Plan Principal Problem: MUSA (acute kidney injury) ([facility]) #MUSA on CKDb S/p 1L LR in ED. Will not redose given concerns for fluid shifts with patient's baseline cirrhosis.Baseline CR ~0.8. - Encourage p.o. intake - BMP daily, redose fluids if worsening Cr - F/u urine Na and urea - F/u UA and culture - Daily weights - Strict I/Os - Renally dose medications - SEARCH OPTIMIZATION ANALYST gabapentin decreased to 100mg TID - Avoid nephrotoxins - SEARCH OPTIMIZATION ANALYST lovenox switched to Heparin - SEARCH OPTIMIZATION ANALYST oxycodone switched to Dilaudid - Hold SEARCH OPTIMIZATION ANALYST spironolactone and lasix - Zofran 4mg q8hrs PRN (QTc 458) #Dizziness Patient endorses several recent falls she attributes to dizziness. Worries about falling. HINTS exam negative. Pt declined Yazmin Foy assessment - PT evaluation prior to discharge?? #Fever - Follow-up blood cultures - Follow-up UA and culture ?? #Compensated Cirrhosis 2/2 NAFLD - Daily MELD labs: CBC, CMP, INR - Hold spironolactone and lasix - Low Na diet - SEARCH OPTIMIZATION ANALYST lactulose 30mL q6h ?? #Hypothyroidism - F/u TSH - Continue SEARCH OPTIMIZATION ANALYST synthroid 25 mcg ?? #Chronic Pain - Replaced SEARCH OPTIMIZATION ANALYST oxycodone with PO diladudid - Renally dose gabapentin as above - SEARCH OPTIMIZATION ANALYST diclofenac ?? #COPD - SEARCH OPTIMIZATION ANALYST albuterol, Flovent, Spiriva - Duonebs q6hrs PRN - Sp O2 for 88-92%, home O2 settinL - IS and AC ?? #Depression - SEARCH OPTIMIZATION ANALYST venlafaxine 150mg daily - SEARCH OPTIMIZATION ANALYST atarax 25mg TID PRN - SEARCH OPTIMIZATION ANALYST doxepin 10mg QHS VTE Prophylaxis Pharmacologic Prophylaxis: Heparin 5000 units SQ Tid Discharge Plan Home or self care. Patient's daughter is coming to her house on Tuesday evening. Tara is hoping that she can stay in the hospital until her daughter is home to care for her. Consults PT Ni Becerra 09/08/2023 7:38 I was present with the medical student for the history, exam, and medical decision making documented. I have personally performed my own physical exam and medical decision making. I have verified andagree with (or, as indicated, have edited) the medical student's documentation. Maryjo López MD PGY-1 #[id number] Attestation: Pt seen and examined; I have reviewed Dr. López and MS Becerra's note and agree withtheir findings, A and P as outlined above, with my additions in blue. I have personally reviewed the laboratory and radiology results. I have personally spoken with housestaff. DOS 09/08/2023. Deepti Peterson MD, MPH * Catrina Jorge - 09/08/2023 0127 EDT Respiratory Consult/Progress Note Indications for Respiratory therapy: ED eval, COPD, HUEY Data Vitals: Heart Rate: 77 BPM, Resp: 18, SpO2: 94 % FIO2/O2 Device: O2 Flow Rate (L/min): 2 l/min, , O2 Device: Nasal cannula, Protocol Scoring: Bronchodilator/Inhalation Therapy Frequency Bronchodilator - Clinical Indications: History of COPD Breath Sounds: Any abnormal BS decreased Response: No change / no treatment Pulse: <100 Resp Rate: 18-25 SOB: With exertion Total Score: 3 Comment:: prn Frequency Based On Total Score: 0-4 = PRN 5-7 = QID 8-10 = Q4H 11-12 = Q2H Airway Clearance Therapy Frequency Airway Clearance - Clinical Indications: No clinical indications Breath Sounds: Clear / diminished Sputum: Small (tsp) / None Consistency: None Cough Effort: Strong/ non-productive Color: None Total Score: 0 Comment: prn Frequency Based On Total Score: 0-3 = PRN 4-6 = QID and PRN 7-9 = Q4H and PRN 10-11 = Q2H and PRN Hyperinflation Therapy Frequency Hyperinflation - Clinical Indications: No clinical indications Breath Sounds: Other Surgery: No X-Ray / Atelectasis: No O2 Requirements: O2 at baseline Mobility Status: Mobile / at baseline Total: 1 Comment: prn Frequency Based On Total Score: 0-3 = PRN 4-6 = QID and PRN 7-9 = Q4H and PRN 10-12 = Q2H and PRN Action/Events Respiratory events; Patient seen in ED for hospital admission and prior diagnosis of COPD/HUEY. Patient wears 2L baseline. She is non-compliant with CPAP but willing to try one while here. Per latest study: AutoCPAP 10-15 with 2L Home respiratory medications she can do independently: PRN Albuterol and Flovent. RT to follow for CPAP assistance. CATRINA JOREG 09/08/23 documented in this encounter H&P Notes * Anna Martin MD - 09/08/2023 0104 EDT Hospital Medicine Admission History & Physical Service Date: 09/08/2023 Admit Date: 09/08/2023 Primary Care Provider: Emigdio Veronica III Chief Complaint: Poor PO intake HPI Tara Boothe is a 63 y.o. female with a PMHx of nephrolithiasis s/p ureteral stent placement, cirrhosis 2/2 NAFLD s/p TIPS c/b chronic splenic vein thrombosis (on Lovenox), COPD (on 2L), HUEY (not on CPAP), chronic pain (on opioids), CKD3, pancytopenia, UGIB 2/2 duodenal ulcer (2020), depression,who presents with weakness, fevers, dyspnea with worsening renal function. Patient shares that she presented to her PCP today with poor PO intake for 8 days. She was hypotensive to 91/49 and with her history, was recommended to go to the ED. Patient states that for the past 8 days, she has had poor p.o. intake secondary to nausea, dry heaving. She feels that is slightly improved today. She states that she has been trying to drink fluids,however, has felt dehydrated. Her urine has been dark. Denies dysuria, increased urinary frequency (although states it is hard to gauge with being on diuretics). Shares that she has chronic abdominal pain, unchanged. Shares she has 1 episode of loose stools yesterday. No melena or hematochezia. Endorses dyspnea, however, says this is chronic. No chest pain. States she had a fever of T1 100.8 at home. Denies rashes. In discussion with the attending, patient endorsed hematuria. She has been continuing to take her diuretics during this time. Patient also endorses increased stress at home. Renting a room from a woman who is undergoing manicepisodes. Another roommate is on house arrest. She is unable to have her grandkids there below the age of 16. This living situation has been difficult for her. Feeling more fatigued and feeling depressed with her housing situation which she feels may have led to decreased appetite. In the ED, patient with chronic leukopenia, chronic thrombocytopenia, normal H&H. CMP with hypokalemia, Cr 1.46 (baseline ~0.8). Lipase normal. ECG sinus, no ST changes. QTc 458. COVID, flu and RSV negative. Normal lactate. Normal BNP. CXR with mild interstitial edema, no evidence of PNA. CT renal showed no evidence of acute abdominal pathology with chronic stable changes. She was given 1L LR, zofran and dilaudid and admitted to medicine for further management of MUSA. Review of Systems A complete 10 point ROS was performed and pertinent positive and negative findings listed in HPI, otherwise negative. Past Medical History: Diagnosis Date ??? Anemia Noted 01/24/2023: on Iron ??? Anxiety ??? Asthma Noted 01/24/2023: prescribed inhalers ??? Bursitis right shoulder ??? C. difficile colitis 07/25/2015 Hospitalized after kidney stone removal ??? Chronic kidney disease Noted 05/17/23-Stage 3 Kidney disease ??? Chronic thrombosis of splenic vein 05/17/23- on enoxaparin ??? Cirrhosis of liver ([facility]) Noted 05/11/23 ??? Community acquired pneumonia january 2021 ??? COPD exacerbation ([facility]) 04/26/2020 05/17/23 chronic hypoxic respiratory failure due to COPD on 2 L NC at baseline ??? Depression ??? Drug-seeking behavior Per Dr Amelia Tijerina and notes from [facility] patient misconstrued information to several providers [...] QUIROZ (nonalcoholic steatohepatitis) with cirrhosis ??? Pancytopenia ([facility]) Noted 05/11/23-Bone marrow Bx at [facility] in 2012, Maturing trilineage hematopoiesis with no underlying hematopoietic abnormalities ??? Poor dentition multiple missing teeth- ??? Rheumatoid arthritis ??? Secondary hypercoagulable state ([facility]) 04/23/2021 [facility] of anticoagulant proteins due [...] off throughout day; BLE; 01/11/22- ??? Thrombocytopenia ([facility]) 12/10/2020 - see 11/20/2020 Dr. Glenys Coreas&Tray, (managed by Starr Paige MD) ??? Thyroid disease Past Surgical History: Procedure Laterality Date ??? APPENDECTOMY ??? BONE MARROW BIOPSY ??? CHOLECYSTECTOMY ??? CYSTOSCOPY 12/03/2020 ??? GASTRIC FUNDOPLICATION 198912/02/2020 - confirmed by pt ??? HERNIA REPAIR ??? HYSTERECTOMY ??? JOINT REPLACEMENT Bilateral with multiple revisions of both knees ??? KNEE SURGERY Bilateral ??? OTHER SURGICAL HISTORY splenic embolization ??? TONSILLECTOMY ??? UPPER GASTROINTESTINAL ENDOSCOPY multiple ??? WRIST SURGERY Right after fracture Social History Tobacco Use ??? Smoking status: Some Days Current packs/day: 0.25 Average packs/day: 0.3 packs/day for 35.0 years (8.8 ttl pk-yrs) Types: Cigarettes ??? Smokeless tobacco: Never ??? Tobacco comments: 3 cigarettes a day Substance Use Topics ??? Alcohol use: No Family History Problem Relation Age of Onset ??? Diabetes Mother ??? *Other(comment) Mother 73 in MVA accident while 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 ambulance crew ??? Coronary Artery Disease Father ??? Thrombosis Father took warfarin - ?DVT ??? Heart Attack Father ??? Diabetes Brother ??? No Known Brother ??? Cancer Maternal Grandmother skin cancer invaded skull ??? No Known Half-Brother ??? No Known Half-Brother ??? No Known Half-Sister ??? No Known Half-Sister ??? No Known Daughter ??? No Known Daughter ??? No Known Son ??? Breast Cancer Neg Hx ??? Colon Cancer Neg Hx ??? Stomach Cancer Neg Hx ??? Rectal Cancer Neg Hx ??? Pancreatic Cancer Neg Hx ??? Ovarian Cancer Neg Hx ??? Esophageal Cancer Neg Hx ??? Endometrial Cancer Neg Hx Current Outpatient Medications Medication Sig ??? albuterol 90 mcg/actuation inhaler Inhale 1-2 Puffs as directed every 4 hours as needed for Wheezing. ??? diclofenac sodium gel Apply 2 g topically 2 times daily as needed for Pain (Knee pain). ??? doxepin (SINEQUAN) 10 mg capsule TAKE 1 TO 2 CAPSULES BY MOUTH AT BEDTIME ??? enoxaparin (LOVENOX) 60 mg/0.6 mL injection Inject 60 mg into the skin daily. ??? fluticasone propionate (FLOVENT DISKUS) 100 mcg/actuation blister with device ??? furosemide (LASIX) 20 mg tablet TAKE 3 TABLETS EVERY DAY. IF FLUID IN LEGS IS WELL CONTROLLED THEN CUT DOWN TO 2 EVERY DAY. ??? gabapentin (NEURONTIN) 300 mg capsule TAKE 1 CAPSULE BY MOUTH THREE TIMES A DAY ??? hydrOXYzine (ATARAX) 25 mg tablet Take 1-2 Tablets by mouth 3 times daily as needed for Anxiety. ??? INCRUSE ELLIPTA 62.5 mcg/actuation INHALE 1 PUFF BY MOUTH DIRECTED DAILY ??? lactulose (CHRONULAC) 10 gram/15 mL solution TAKE 15-30ML BY MOUTH DAILY NEEDED (CONSTIPATION. TARGET GOAL OF TWO BOWEL MOVEMENTS DAILY). ??? levothyroxine (SYNTHROID) 25 mcg tablet TAKE 1 TABLET BY MOUTH EVERY DAY ??? naloxone (NARCAN) 4 mg/actuation nasal spray 0.1 mL by nasal route as needed for Opioid Reversal. Repeat every 2-3 minutes if not effective and overdose is suspected. (spray is harmless in excess). ??? ondansetron (ZOFRAN) 4 mg tablet TAKE 1 TABLET BY MOUTH EVERY 8 HOURS NEEDED FOR NAUSEA ??? oxyCODONE (ROXICODONE) 5 mg immediate release tablet Take 1 Tablet by mouth 3 times daily as needed for up to 28 days for Pain. Daily Max: 15 mg ??? OXYGEN-AIR DELIVERY SYSTEMS MISC 2 L by misc (non-drug; combo route) route at bedtime. ??? spironolactone (ALDACTONE) 100 mg tablet Take 0.5 Tablets by mouth daily. ??? sucralfate (CARAFATE) 1 gram tablet TAKE 1 TABLET BY MOUTH FOUR TIMES A DAY ??? venlafaxine (EFFEXOR-XR) 150 mg XR capsule Take 1 Capsule by mouth daily. (total daily dose of this medication is 150 mg). Allergies Allergen Reactions ??? Metoclopramide Nausea Only, Other (See Comments) and Shortness Of Breath Other reaction(s): RASH, SOB Jittery ??? Morphine Anaphylaxis ??? Sulfa (Sulfonamide Antibiotics) Anaphylaxis ??? Tylenol [Acetaminophen] Other (See Comments) Contraindication with medical hx ??? Flagyl [Metronidazole] Other (See Comments) Fatigue ??? Ambien [Zolpidem] Other (See Comments) Amnesia--in [facility]. [place]; let to psych admission. ??? Aspirin Other (See Comments) Contraindication with medical hx ??? Injectafer [Ferric Carboxymaltose] ??? Lyrica [Pregabalin] Anxiety Insomnia ??? Prochlorperazine ??? Reglan [Metoclopramide Hcl] Rash Objective Vitals Temp: [36.5 ??C (97.7 ??F)-36.8 ??C (98.2 ??F)] , Heart Rate: [77 BPM-80 BPM] , Pulse: [79-91] , Resp: [15-18] , BP: (91-107)/(49-77) , SpO2: [94 %-98 %] , O2 Flow Rate (L/min): 2 l/min Numeric Pain Level (Scale 1-10): 8 Weight: Weight : 90.7 kg (200 lb) Body mass index is 34.33 kg/m??. Physical Exam General: Sitting with NC in place. NAD. HENT: Normocephalic, atraumatic. Dry, peeling lips. Poor dentition. No scleral icterus Cardio: RRR, no murmurs. Normal S1/S2 Respiratory: Normal work of breathing on 2L NC, diffuse wheezes across all lung godwin Abdominal: Non-distended, soft, mild tenderness diffusely without rebound or guarding Extremities: WWP, no edema Derm: No rashes on exposed skin Neuro: Alert and oriented Psych: Normal mood and affect Labs I have personally reviewed Recent Labs 09/07/23181409/08/23 0409 WBC 3.69* 3.01* RBC 4.44 3.96 HGB 13.6 11.9 HCT 39.0 35.4 MCV 88 89 MCH 30.6 30.1 MCHC 34.9 33.6 PLT 101* 92* NEUTROABS 2.59 -- Recent Labs 10/18/23 1815 NA 139 K 3.2* CL 98 CO2 27 BUN 16 CREATININE 1.46* CALCIUM 8.9 LABALBU 4.5 Recent Labs 09/07/23 1815 TBIL 1.1 ALKPHOS 135* AST 44 ALT 20 LIPASE 114 Recent Labs 09/08/23 0409 COLOR [place]* CLARITYU Hazy* GLUCOSEU Negative BILIRUBINUR Negative KETONES Negative LABSPEC 1.010 PHUR 5.5 PROTEINUA Negative UROBILINOGEN Normal NITRITE Negative LEUKESTER Negative WBCU 0 - 3 RBCU >50* BACTERIA None Seen LABCAST <=[address] RENAL STONE Result Date: 09/07/2023 1. No acute abnormality in the abdomen or pelvis. Specifically, no evidence of urinary calculus. 2.Splenomegaly with chronic infarct, unchanged 3. Cirrhotic configuration of the liver. 4. Stable dilatation of the portal/splenic vein reflecting chronic thrombus, which evaluation is limited given noncontrast technique 5. Colonic diverticulosis 6. Stable left adrenal nodule, likely adrenal adenoma CT ABDOMEN PELVIS WO CONTRAST Result Date: 08/18/2023 1. No acute abnormality in the abdomen/pelvis. Specifically, no evidence of left ureteral calculus.2. Splenomegaly with chronic infarct, not appreciably changed. 3. Cirrhotic configuration of the liver. 4. Dilation of the portal/splenic vein reflecting chronic thrombus, limited assessment for interval change given noncontrast technique. 5. Colonic diverticulosis without evidence of diverticulitis. 6. Stable left adrenal nodule, likely left adrenal adenoma. 7. Atherosclerosis. I have personallyreviewed the images and the above interpretation and agree with the findings. [id number] Assessment Tara Boothe is a 63 y.o. female with a PMHx significant for nephrolithiasis s/p ureteral stent placement, cirrhosis 2/2 NAFLD s/p TIPS c/b chronic splenic vein thrombosis (on Lovenox), COPD (on 2L), HUEY (not on CPAP), chronic pain (on opioids), CKD3, pancytopenia, UGIB 2/2 duodenal ulcer (2020)depression who presents with 8 days of poor p.o. intake, weakness and fever with a new MUSA which islikely prerenal in the setting of poor p.o. intake and continued diuretic use. Likely that patient experienced a viral gastroenteritis, which triggered symptoms, with depression compounding her poor PO intake. Low suspicion for bacterial process with no other localizing symptoms and imaging withoutevidence of acute infectious pathology. Plan MUSA on CKDb S/p 1L LR in ED. Will not redose given concerns for fluid shifts with patient's baseline cirrhosis.Baseline CR ~0.8. -Encourage p.o. intake -BMP daily, redose fluids if worsening Cr - F/u urine Na and urea - F/u UA and culture -Renally dose medications - SEARCH OPTIMIZATION ANALYST gabapentin decreased to 100mg TID - Avoid nephrotoxins - SEARCH OPTIMIZATION ANALYST lovenox switched to Heparin - SEARCH OPTIMIZATION ANALYST oxycodone switched to Dilaudid - Hold SEARCH OPTIMIZATION ANALYST spironolactone and lasix - Daily weights - Strict I/Os - Zofran 4mg q8hrs PRN (QTc 458) Fever -Follow-up blood cultures -Follow-up UA and culture Compensated Cirrhosis 2/2 NAFLD - Daily MELD labs: CBC, CMP, INR - Hold spironolactone and lasix - Low Na diet - Lactulose PRN Hypothyroidism - F/u TSH - Continue SEARCH OPTIMIZATION ANALYST synthroid 25 mcg Chronic Pain - Replaced SEARCH OPTIMIZATION ANALYST oxycodone with PO diladudid - Renally dose gabapentin as above - SEARCH OPTIMIZATION ANALYST diclofenac COPD - SEARCH OPTIMIZATION ANALYST albuterol, Flovent, Spiriva - Sp O2 for 88-92%, home O2 settinL - IS and AC - Duonebs q6hrs PRN Depression - SEARCH OPTIMIZATION ANALYST venlafaxine 150mg daily - SEARCH OPTIMIZATION ANALYST atarax 25mg TID PRN - SEARCH OPTIMIZATION ANALYST doxepin 10mg QHS VTE Prophylaxis Pharmacologic Prophylaxis: Heparin 5000 units SQ Tid Code: Limitation of Treatment Discharge Plan Pending clinical course Consults PT Admission status Inpatient admission due to anticipated duration of hospitalization is two midnights or greater due to MUSA. Discussed with Dr. Martin. LESLI MOYA MD 09/08/2023 4:42 Attending Attestation: I have interviewed and examined the patient. At the time of the visit I reviewed this patient's clinical history, physical exam, lab and imaging studies with the resident and agree with the above documented assessment and plan(s). It is my expectation that this patient's acute medical needs will require inpatient length of stay to span two midnights. Date of Service: 09/08/2023 Anna Martin MD Internal Medicine Hospitalist documented in this encounter ED Notes * Tatyana Sullivan RN - 09/08/2023 1440 EDT PT at bedside to work with patient. * Tatyana Sullivan RN - 09/08/2023 0759 EDT Admitting team at bedside for eval. * Molly Hayward RN - 09/08/2023 0717 EDT Report received from KENN Michel. Pt resting in bed, appears to be sleeping, RR WNL and unlabored, skin PWD. Pt on 2L O2 via NC and remains on continuous tele and O2 monitoring as well as freq NBP. Pt currently boarding in ED, awaiting inpatient bed. * Laurent Douglas MD - 09/07/2023 1853 EDT Emergency Department Visit This documentation is recorded by Kavon Peres acting as Scribe under the direction and presence of Laurent Douglas MD. Laurent Douglas MD: I personally performed the services recorded by the scribe in my presence. I confirm the scribe's documentation has been reviewed by me to accurately and completely record my work, treatment, procedures, and medical decision making. Medical Decision Making Relevant Data as of 09/09/23 0745 TueSep 07, 2023 191 63-year-old female presents with 8 days of decreased oral intake, weakness, intermittent feverand shortness of breath. Patient also notes mid and right upper quadrant abdominal pain. Differential diagnosis includes but is not limited to dehydration, MUSA, electrolyte abnormality, bowel obstruction, pancreatitis, complication of splenic vein thrombosis, biliary disease. Further evaluation will include IV fluid hydration, Zofran, pain control, labs and CT abdomen pelvis, and chest x-ray. [DW] 2239 Labs reviewed: Potassium low at 3.2. Acute on chronic renal insufficiency creatinine 1.46 and GFR 40. WBC low 3.69. Flu and COVID-negative. Lactic acid 1.4. Normal. [DW] 2240 XR CHEST PORTABLE 1 VIEW Chest x-ray shows mild interstitial edema. [DW] 2241 Patient was transferred from primary care office where she presented feeling extremely weak onverge of collapse. Says she had been unable to eat or drink anything for the past 8 days. EMS was called to transport patient to emergency department. She was also noted to be hypotensive. [DW] Relevant Data User Index [DW] Laurent Douglas MD 2245: Plan for ambulation trial. Pt too weak to ambulate. Discussed with hospitalist for admission. An EKG was obtained and independently interpreted. Laboratory data was reviewed. Medical Decision Making MUSA (acute kidney injury) ([facility]): acute illness or injury Chronic respiratory failure with hypoxia ([facility]): chronic illness or injury Hypokalemia: acute illness or injury Amount and/or Complexity of Data Reviewed Labs: ordered. Radiology: ordered. Decision-making details documented in ED Course. Risk Prescription drug management. Decision regarding hospitalization. Final diagnoses: MUSA (acute kidney injury) ([facility]) Hypokalemia Chronic respiratory failure with hypoxia ([facility]) Disposition: Admitted Chief complaint: Weakness HPI Tara Boothe is a 63 y.o. female with a history of GERD, CKD, COPD, chronic respiratory failure with hypoxia, chronic thrombosis of the splenic vein, and hypercoagulable state who presents to the ED for weakness and an inability to keep anything down for over a weak. She says she has been dry heaving, and she can barely tolerate liquid PO intake (nothing but sips of ice water). She also notes difficulty breathing and intermittent fevers. She denies chest pain or diarrhea. History was provided by: Patient Records reviewed include: EMR Patient's pertinent PMH, FH, SH were reviewed and edited as necessary. Nursing notes reviewed. A medical screening exam was performed. Physical Exam BP 119/76 (BP Cuff Location: Left arm, BP Patient Position: Semi fowlers) Pulse 83 Temp 37.1 ??C (98.7 ??F) (Tympanic) Resp 18 Ht 162.6 cm (64) Wt (!) 103.6 kg (228 lb 6.4 oz) SpO2 94% BMI 39.20 kg/m?? Physical Exam Vitals and nursing note reviewed. Constitutional: Appearance: She is well-developed. Eyes: General: No scleral icterus. Pupils: Pupils are equal, round, and reactive to light. Cardiovascular: Rate and Rhythm: Normal rate and regular rhythm. Heart sounds: Normal heart sounds. Pulmonary: Effort: Pulmonary effort is normal. Breath sounds: Normal breath sounds. Comments: Clear to auscultation bilaterally. Abdominal: Tenderness: There is abdominal tenderness. There is guarding. Comments: Right upper quadrant tenderness and guarding.Slight epigastric and left upper quadrant tenderness. Musculoskeletal: General: Normal range of motion. Cervical back: Normal range of motion and neck supple. Right lower leg: Edema present. Left lower leg: Edema present. Comments: Bilateral lower extremity edema. Skin: General: Skin is warm and dry. Findings: No rash. Neurological: Mental Status: She is alert and oriented to person, place, and time. Procedures Procedures documented in this encounter Miscellaneous Notes * Plan of Care - Maricel Garibay RN - 09/09/2023 0345 EDT Problem: High Fall Risk: Goal: Patient Will Remain Free from Fall-Related Injury Outcome: Ongoing Problem: High Fall Risk: Goal: Patient will Remain Free of Falls due to Altered Mobility Outcome: Ongoing Problem: Sensory: Goal: Ability to compensate for vision loss will be supported Outcome: Ongoing Pt AAOX4, ambulates to BR with a walker and staff assist, on 2L NC at baseline, pt able to tolerateCPAP overnight for very brief periods of time, PRN Dilaudid given for pain, bed locked and in low position, call light within reach, bed alarm on at all times. documented in this encounter Plan of Treatment Upcoming Encounters Date Type Department Care Team (Late st Contact Info) Description 01/04/2025 13:00 EST Office Visit [facility] Ophthalmology - [address] [phone] Gagandeep Rome MD [address] [facility], [address] [place] [id number] 02/11/2025 13:30 EDT Telemedicine [facility] Hematology & Oncology - [address] [phone] Dana Padilla MD [address] [facility], [address] [place] [address] Scheduled Referrals Name Type Priority Associated Diagnoses Order Schedule AMB CONS/FOLLOW UP HOME HEALTH SERVICES Outpatient Referral Routine/Next Available Other cirrhosis of liver (HCC-CMS) Chronic respiratory failure with hypoxia (HCC-CMS) Expected: 09/10/2023 (Approximate), Expires: 09/08/2024 documented as of this encounter Procedures Procedure Name Priority Date/Time Associated Diagnosis Comments ECG REPORT - SCANNED 09/09/2023 14:03 EDT PROTIME Routine 09/09/2023 8:28 EDT COMPLETE BLOOD COUNT Routine 09/09/2023 8:28 EDT PHOSPHORUS Routine 09/09/2023 8:28 EDT MAGNESIUM Routine 09/09/2023 8:28 EDT COMPREHENSIVE METABOLIC PANEL (CMP) Routine 09/09/2023 8:28 EDT RESPIRATORY CARE EVALUATION ONLY Routine 09/08/2023 11:29 EDT URINE CHEMICAL (DIP) & SEDIMENT (MICRO) WITH REFLEX TO CULTURE Routine 09/08/2023 4:09 EDT UREA NITROGEN, URINE RANDOM Routine 09/08/2023 4:09 EDT CREATININE, URINE RANDOM Routine 09/08/2023 4:09 EDT PROTIME Routine 09/08/2023 4:09 EDT COMPLETE BLOOD COUNT Routine 09/08/2023 4:09 EDT COMPREHENSIVE METABOLIC PANEL (CMP) Routine 09/08/2023 4:09 EDT AIRWAY CLEARANCE THERAPY Routine 09/08/2023 2:[address] RENAL STONE STAT 09/07/2023 22:54 EDT POCT US ED GUIDANCE PIV 09/07/2023 20:19 EDT XR CHEST PORTABLE 1 VIEW STAT 09/07/2023 19:45 EDT LACTIC ACID WITH REFLEX - USE FOR INITIAL SEPSIS EVALUATION STAT 09/07/2023 19:38 EDT BACTERIAL CULTURE, BLOOD STAT 09/07/2023 19:38 EDT BACTERIAL CULTURE, BLOOD STAT 09/07/2023 19:38 EDT TSH Add-On 09/07/2023 19:38 EDT NT PRO BNP STAT Add-on 09/07/2023 19:38 EDT ZZCOVID-19 TEST [facility] PCR STAT 09/07/2023 19:25 EDT COVID-19 TESTING STAT 09/07/2023 19:2 5 EDT ZZHN INFLUENZA A AND B, RSV PCR STAT 09/07/2023 19:25 EDT HOLD SST Routine 09/07/2023 18:15 EDT HOLD LAVENDER TOP Routine 09/07/2023 18: 15 EDT HOLD GREEN TOP Routine 09/07/2023 18:15 EDT HOLD BLUE TOP Routine 09/07/2023 18:15 EDT COMPLETE BLOOD COUNT AND DIFFERENTIAL STAT Add-on 09/07/2023 18:15 EDT LIPASE STAT Add-on 09/07/2023 18:15 EDT COMPREHENSIVE METABOLIC PANEL (CMP) STAT Add-on 09/07/2023 18:15 EDT EKG 12-LEAD STAT 09/07/2023 18:06 EDT documented in this encounter Results * ECG REPORT - SCANNED (09/09/2023 14:03 EDT) 09/09/2023 14:0 3 EDT us Scan 2 Teachers Assistant PROCEDURE/MINOR SURGICAL OR DERABLES Final Result * PHOSPHORUS (09/09/2023 8:28 EDT) Phosphorus 3.0 2.5 - 4.5 mg/dL 09/09/2023 9:[address] [facility] Blood VENOUS BLOOD / Unknown Venipuncture / Unknown 09/09/2023 8:28 EDT 09/09/2023 8:41 EDT us Loree Bear DO CHEMISTRY & BLOOD GAS ORDERABLES Final Result [facility] [address] [place] [address] * MAGNESIUM (09/09/2023 8:28 EDT) Magnesium 1.7 1.7 - 2.8 mg/dL 09/09/2023 9:[address] [facility] Blood VENOUS BLOOD / Unknown Venipuncture / Unknown 09/09/2023 8:28 EDT 09/09/2023 8:41 EDT us Loree Lopez DO CHEMISTRY & BLOOD GAS ORDERABLES Final Result Performing Organization Address [facility] Co de Phone Number [facility] [address] [place] [address] * (ABNORMAL) PROTIME (09/09/2023 8:28 EDT) I.N.R. 1.2(H) 0.9 - 1.1 Ratio 09/09/2023 8:[address] [facility] Pro Time 13.4(H) 9.7 - 12.8 secs 09/09/2023 8:[address] [facility] Blood VENOUS BLOOD / Unknown Venipuncture / Unknown 09/09/2023 8:28 EDT 09/09/2023 8:32 EDT Narrative [facility] - 09/09/2023 8:58 EDT Moderate Intensity Coumadin INR = 2.0-3.0 Adjustments in anticoagulant therapy dose should be based on the INR and NOT on the Protime. us Lesli Moya MD HEMATOLOGY & PF4 ORDERABLES Final Result Performing Organization Address [facility] de Phone Number [facility] [address] [place] [address] * (ABNORMAL) COMPREHENSIVE METABOLIC PANEL (CMP) (09/09/2023 8:28 EDT) Sodium 138 136 - 145 mmol/L 09/09/2023 9:[address] [facility] Potassium 3.7 3.5 - 5.0 mmol/L 09/09/2023 9:[address] [facility] Chloride 100 96 - 110 mmol/L 09/09/2023 9:[address] [facility] CO2 Total 27 22 - 32 mmol/L 09/09/2023 9:[address] [facility] Glucose 104(H) 70 - 99 mg/dl 09/09/2023 9:[address] [facility] BUN 15 10 - 26 mg/dL 09/09/2023 9:22 [facility] Creatinine 1.02 0.52 - 1.04 mg/dL 09/09/2023 9:22 [facility] eGFR 62 >60 mL/min/1.7 3m2 09/09/2023 9:22 [facility] Total Protein 6.9 6.3 - 8.2 g/dL 09/09/2023 9:22 [facility] Albumin 3.8 3.4 - 4.9 g/dL 09/09/2023 9:22 [facility] Alkaline Phosphatase 134(H) 38 - 126 U/L 09/09/2023 9:22 [facility] AST 48(H) 15 - 46 U/L 09/09/2023 9:22 [facility] ALT 32 <35 U/L 09/09/2023 9:22 [facility] Bilirubin, Total 1.1 <1.4 mg/dL 09/09/20 9:22 [facility] Calcium 8.6 8.5 - 10.5 mg/dL 09/09/2023 9:22 [facility] Albumin/Globulin Ratio 1.2 1.0 - 2.5 g/dL 09/09/2023 9:22 [facility] Anion Gap 11 5 - 14 mmol/L 09/09/2023 9:22 [facility] Blood VENOUS BLOOD / Unknown Venipuncture / Unknown 09/09/2023 8:28 EDT 09/09/2023 8:41 EDT us Lesli Moya MD CHEMISTRY & BLOOD GAS ORDERA BLES Final Result [facility] [address] [place] [address] * (ABNORMAL) COMPLETE BLOOD COUNT (09/09/2023 8:28 EDT) WBC 3.53(L) 4.00 - 12.40 K/cmm 09/09/2023 8:51 [facility] RBC 4.07 3.86 - 5.04 M/cmm 09/09/2023 8:51 [facility] Hemoglobin 12.4 11.6 - 15.2 g/dL 09/09/2023 8:51 [facility] HCT 36.2 34.9 - 44.4 % 09/09/2023 8:51 [facility] MCV 89 81 - 98 fL 09/09/2023 8:51 [facility] MCH 30.5 26.7 - 33.3 pg 09/09/2023 8:51 [facility] MCHC 34.3 32.1 - 35.9 g/dL 09/09/2023 8:51 [facility] RDW-CV 13.6 <14.7 % 09/09/2023 8:51 [facility] RDW-SD 44.1 <50.4 fl 09/09/2023 8:51 [facility] PLT 92(L) 141 - 377 K/cmm 09/09/2023 8:51 [facility] MPV 10.0 9.5 - 12.7 fL 09/09/2023 8:51 [facility] Blood VENOUS BLOOD / Unknown Venipuncture / Unknown 09/09/2023 8:28 EDT 09/09/2023 8:40 EDT us Lesil Moya MD HEMATOLOGY & PF4 ORDERABLES Final Result [facility] [address] [place] [address] * (ABNORMAL) PROTIME (09/08/2023 4:09 EDT) I.N.R. 1.2(H) 0.9 - 1.1 Ratio 09/08/2023 4:46 [facility] Pro Time 13.7(H) 9.7 - 12.8 secs 09/08/2023 4:46 [facility] Blood VENOUS BLOOD / Unknown Venipuncture / Unknown 09/08/2023 4:09 EDT 09/08/2023 4:26 EDT [address] [facility] - 09/08/2023 4:46 EDT Moderate Intensity Coumadin INR = 2.0-3.0 Adjustments in anticoagulant therapy dose should be based on the INR and NOT on the Protime. us Lesli Moya MD HEMATOLOGY & PF4 ORDERABLES Final Result [facility] [address] [place] [address] * (ABNORMAL) COMPREHENSIVE METABOLIC PANEL (CMP) (09/08/2023 4:09 EDT) Sodium 137 136 - 145 mmol/L 09/08/2023 4:43 [facility] Potassium 3.4(L) 3.5 - 5.0 mmol/L 09/08/2023 4:43 [facility] Chloride 99 96 - 110 mmol/L 09/08/2023 4:43 [facility] CO2 Total 29 22 - 32 mmol/L 09/08/2023 4:43 [facility] Glucose 95 70 - 99 mg/dl 09/08/2023 4:43 [facility] BUN 15 10 - 26 mg/dL 09/08/2023 4:43 [facility] Creatinine 1.16(H) 0.52 - 1.04 mg/dL 09/08/2023 4:43 [facility] eGFR 53(L) >60 mL/min/1.7 3m2 09/08/2023 4:43 [facility] Total Protein 6.6 6.3 - 8.2 g/dL 09/08/2023 4:43 [facility] Albumin 3.7 3.4 - 4.9 g/dL 09/08/2023 4:43 [facility] Alkaline Phosphatase 93 38 - 126 U/L 09/08/2023 4:[address] [facility] AST 25 15 - 46 U/L 09/08/2023 4:[address] [facility] ALT 18 <35 U/L 09/08/2023 4:43 [facility] Bilirubin, Total 0.9 <1.4 mg/dL 09/08/20 4:[address] [facility] Calcium 8.3(L) 8.5 - 10.5 mg/dL 09/08/2023 4:43 [facility] Albumin/Globulin Ratio 1.3 1.0 - 2.5 g/dL 09/08/2023 4:43 [facility] Anion Gap 9 5 - 14 mmol/L 09/08/2023 4:43 [facility] Blood VENOUS BLOOD / Unknown Venipuncture / Unknown 09/08/2023 4:09 EDT 09/08/2023 4:19 EDT us Lesli Moya MD CHEMISTRY & BLOOD GAS ORDERA BLES Final Result [facility] [address] [place] [address] * (ABNORMAL) COMPLETE BLOOD COUNT (09/08/2023 4:09 EDT) WBC 3.01(L) 4.00 - 12.40 K/cmm 09/08/2023 4:33 [facility] RBC 3.96 3.86 - 5.04 M/cmm 09/08/2023 4:33 [facility] Hemoglobin 11.9 11.6 - 15.2 g/dL 09/08/2023 4:33 [facility] HCT 35.4 34.9 - 44.4 % 09/08/2023 4:33 [facility] MCV 89 81 - 98 fL 09/08/2023 4:33 [facility] MCH 30.1 26.7 - 33.3 pg 09/08/2023 4:33 [facility] MCHC 33.6 32.1 - 35.9 g/dL 09/08/2023 4:[address] [facility] RDW-CV 13.4 <14.7 % 09/08/2023 4:[address] [facility] RDW-SD 43.9 <50.4 fl 09/08/2023 4:[address] [facility] PLT 92(L) 141 - 377 K/cmm 09/08/2023 4:[address] [facility] MPV 10.3 9.5 - 12.7 fL 09/08/2023 4:[address] [facility] Blood VENOUS BLOOD / Unknown Venipuncture / Unknown 09/08/2023 4:09 EDT 09/08/2023 4:22 EDT Lesli Moya MD HEMATOLOGY & PF4 ORDERABLES Final Result Performing Organization Address [facility] Co de Phone Number [facility] [address] [place] [address] * CREATININE, URINE RANDOM (09/08/2023 4:09 EDT) Creatinine, Urine 76.4 See Note mg/dL 09/08/2023 4:[address] [facility] Comment: NOTE: Reference range has not been established for creatinine concentration in random urine specimens. Urine URINE / Unknown Urine Collect / Unknown 09/08/2023 4:09 EDT 09/08/2023 4:17 EDT us Lesli Moya MD URINALYSIS ORDERABLES Final Result Performing Organization Address [facility]/ZIP Co de Phone Number [facility] [address] [place] [address] * UREA NITROGEN, URINE RANDOM (09/08/2023 4:09 EDT) Urea Nitrogen, Urine 377 See Note mg/dL 09/08/2023 4:[address] [facility] Comment: NOTE: Reference range has not been established for urea nitrogen concentration in random urine specimens. Urine URINE / Unknown Urine Collect / Unknown 09/08/2023 4:09 EDT 09/08/2023 4:17 EDT Lesli Moya MD URINALYSIS ORDERABLES Final Result [facility] [address] [place] [address] * (ABNORMAL) URINE CHEMICAL (DIP) & SEDIMENT (MICRO) WITH REFLEX TO CULTURE (09/08/2023 4:09 EDT) Color UA [place](A) Colorless, Yellow 09/08/2023 4:28 [facility] Clarity UA Hazy(A) Clear 09/08/2023 4:28 [facility] Glucose UA Negative Negative mg/dL 09/08/2023 4:28 [facility] Bilirubin UA Negative Negative 09/08/2023 4:28 [facility] Ketones UA Negative Negative 09/08/2023 4:28 [facility] Specific [place], Urine 1.010 1.001 - 1.035 09/08/2023 4:28 [facility] Blood UA 3+(A) Negative 09/08/2023 4:28 [facility] Urobilinogen UA Normal Normal mg/dL 023 4:28 [facility] Nitrite UA Negative Negative 09/08/2023 4:28 [facility] Leukocyte Esterase UA Negative Negative 09/08/2023 4:28 [facility] Protein UA Negative Negative mg/dL 09/08/2023 4:28 [facility] pH, UA 5.5 4.6 - 8.0 09/08/2023 4:28 [facility] Urine RBC Count, Auto >50(A) 0 - 2 Cells/HPF 09/08/2023 4:28 [facility] Urine WBC Count, Auto 0 - 3 0 - 3 Cells/HPF 09/08/2023 4:28 [facility] Urine Squamous Count, Auto None Seen None Seen Cells/HPF 09/08/2023 4:[address] [facility] Urine Hyaline Cast Count, Auto <=10 <=10 Casts/LPF 09/08/2023 4:[address] [facility] Urine Bacteria Count, Auto None Seen None Seen Bacteria/HPF 09/08/2023 4:[address] [facility] Urine URINE SPECIMEN OBTAINED BY CLEAN CATCH PROCEDURE / Unknown Urine Collect / Unknown 09/08/2023 4:09 EDT 09/08/2023 4:17 EDT [address] [facility] - 09/08/2023 4:28 EDT NOTE: Reflex to Urine Culture test is not indicated based on Urine Sediment Analysis results. Urine Sediment Analysis results are unreliable on urines that are unrefrigerated for >2 hrs or refrigerated >8 hrs. us Lesli Moya MD URINALYSIS ORDERABLES Final Result Performing Organization Address City/State/[facility] Co de Phone Number [facility] [address] [place] [address] * CT RENAL STONE (09/07/2023 22:54 EDT) Anatomical Region Laterality Modality Body, Abdomen Computed Tomogra phy 09/08/2023 8:33 EDT Impressions 09/08/2023 8:33 EDT 1. ??No urinary tract calculi or obstruction 2. ??No significant change left upper quadrant including splenomegaly, splenic infarct, embolization coils, 3. ??Splenomegaly with chronic infarct, embolization coils, trace adjacent fluid 4. ??Cirrhosis, portal hypertension. 5. ??Stable dilatation of the portal/splenic vein reflecting chronic thrombus, allowing for noncontrast technique 6. ??Colonic diverticulosis 7. ??Stable small left adrenal adenoma I have personally reviewed the images and the above interpretation and agree with the findings. [id number] Narrative 09/08/2023 8:[address] RENAL STONE ??09/07/2023 10:35 PM Signs and Symptoms/Comments: abd pain; abd pain; Technique: CT images obtained from abdomen immediately superior to level of kidneys through the pelvis without administration of IV contrast. This CT used either dose modulation and/or iterative reconstruction techniques to lower radiation dose. Comparison: CT abdomen pelvis 08/17/2023 Findings: Lower chest: Lung bases are clear. Liver: Nodular contour to the liver is again noted. No contour deforming mass. Gallbladder: Surgically absent Bile ducts: No significant intra or extrahepatic ductal dilatation given cholecystectomy. Spleen: No significant change in splenomegaly with embolization coils and sequela of infarct in the anterior/inferior spleen, not significant changed compared to prior, as far spleen included. Mild stranding along the inferior margin, unchanged. Pancreas: Partial fatty atrophy of the pancreas. No pancreatic ductal dilatation. Adrenal glands: Left adrenal nodule, unchanged compared to prior, low attenuation. Right adrenal glands unremarkable Kidneys, ureters, bladder: No contour deforming mass. No hydroureteronephrosis. No nephrolithiasis. The urinary bladder is nondistended, however no significant abnormality identified. Gonadal vein phlebolith noted adjacent to ureters, unchanged Reproductive organs: Status post hysterectomy. No adnexal mass Bowel: No acute inflammatory changes or evidence of bowel obstruction. Scattered colonic diverticulosis. Peritoneal cavity: Trace perisplenic fluid, also present on prior. No fluid collection.. Calcifications in the right lower abdomen again noted, unchanged. Lymph nodes: No adenopathy. Vascular: Abdominal aorta is normal in caliber. Scattered atherosclerotic calcifications. Expansion of the portal vein with some internal calcifications, compatible with known chronic thrombosis. Abdominal wall: Surgical mesh and surgical clips in the anterior right upper abdomen. Numerous soft tissue density nodules are again noted in the anterior abdominal wall, likely related to subcutaneous injections. Dystrophic calcifications again noted in the gluteal subcutaneous fat. Musculoskeletal: No concerning osseous lesion. Furnace Caretaker: No additional findings Procedure Note Scottie Xavier MD - 09/08/2023 CT RENAL STONE 09/07/2023 10:35 PM Signs and Symptoms/Comments: abd pain; abd pain; Technique: CT images obtained from abdomen immediately superior to levelof kidneys through the pelvis without administration of IV contrast. This CT used either dose modulation and/or iterative reconstructiontechniques to lower radiation dose. Comparison: CT abdomen pelvis 08/17/2023 Findings: Lower chest: Lung bases are clear. Liver: Nodular contour to the liver is again noted. No contour deformingmass. Gallbladder: Surgically absent Bile ducts: No significant intra or extrahepatic ductal dilatation givencholecystectomy. Spleen: No significant change in splenomegaly with embolization coils andsequela of infarct in the anterior/inferior spleen, not significantchanged compared to prior, as far spleen included. Mild stranding alongthe inferior margin, unchanged. Pancreas: Partial fatty atrophy of the pancreas. No pancreatic ductaldilatation. Adrenal glands: Left adrenal nodule, unchanged compared to prior, lowattenuation. Right adrenal glands unremarkable Kidneys, ureters, bladder: No contour deforming mass. Nohydroureteronephrosis. No nephrolithiasis. The urinary bladder isnondistended, however no significant abnormality identified. Gonadal veinphlebolith noted adjacent to ureters, unchanged Reproductive organs: Status post hysterectomy. No adnexal mass Bowel: No acute inflammatory changes or evidence of bowel obstruction.Scattered colonic diverticulosis. Peritoneal cavity: Trace perisplenic fluid, also present on prior. Nofluid collection.. Calcifications in the right lower abdomen again noted,unchanged. Lymph nodes: No adenopathy. Vascular: Abdominal aorta is normal in caliber. Scattered atheroscleroticcalcifications. Expansion of the portal vein with some internalcalcifications, compatible with known chronic thrombosis. Abdominal wall: Surgical mesh and surgical clips in the anterior rightupper abdomen. Numerous soft tissue density nodules are again noted in theanterior abdominal wall, likely related to subcutaneous injections.Dystrophic calcifications again noted in the gluteal subcutaneous fat. Musculoskeletal: No concerning osseous lesion. Furnace Caretaker: No additional findings IMPRESSION 1. No urinary tract calculi or obstruction 2. No significant change left upper quadrant including splenomegaly,splenic infarct, embolization coils, 3. Splenomegaly with chronic infarct, embolization coils, trace adjacentfluid 4. Cirrhosis, portal hypertension. 5. Stable dilatation of the portal/splenic vein reflecting chronicthrombus, allowing for noncontrast technique 6. Colonic diverticulosis 7. Stable small left adrenal adenoma I have personally reviewed the images and the above interpretation andagree with the findings. [id number] us Laurent Douglas MD IMG CT ORDERABLES Fin al Result * POCT US ED GUIDANCE PIV (09/07/2023 20:19 EDT) Anatomical Region Laterality Modality Other 09/07/2023 20:1 9 EDT Narrative 09/10/2023 7:52 EDT Study Date and Time: 2023-09-07 20:19 Study Author: Chaparrita Baker ED Procedural Guidance - PIV: Indications: ?Indications for this focused Ultrasound:: Evaluation for a potential access site and selected vessel patency, Failed or difficult IV access ?Other Indications:: N/A Location: ?Laterality:: Right ?Site of peripheral line:: Basilic vein ?Other site:: N/A Complications: ?Procedure Complications:: None ?Other Complications:: N/A Interpretation: ?Exam interpretation:: Successful US-guided peripheral line insertion ?Other interpretation:: N/A Confirmatory Study: ?What confirmatory study was performed during patient ED evaluation?: POCUS visualization of catheter in lume, IV patency confirmed by flushing without resistance or tissue infiltration, POCUS visualization of agitated saline flush in lumen) ?Comments: N/A Signed by Chaparrita Baker on 2023-09-07 20:46 Physician Attestation: ?I reviewed and independently interpreted these images. ??I was present for the brown and critical portions of the ultrasound imaging and agree with or have edited the findings as documented. Final Signature by Garcia ARCHER on 2023-09-10 07:52 Procedure Note Laurent Douglas MD - 09/10/2023 Study Date and Time: 2023-09-07 20:19 Study Author: Chaparrita Baker ED Procedural Guidance - PIV: Indications: Indications for this focused Ultrasound:: Evaluation for a potentialaccess site and selected vessel patency, Failed or difficult IV access Other Indications:: N/A Location: Laterality:: Right Site of peripheral line:: Basilic vein Other site:: N/A Complications: Procedure Complications:: None Other Complications:: N/A Interpretation: Exam interpretation:: Successful US-guided peripheral line insertion Other interpretation:: N/A Confirmatory Study: What confirmatory study was performed during patient ED evaluation?:POCUS visualization of catheter in lume, IV patency confirmed by flushingwithout resistance or tissue infiltration, POCUS visualization of agitatedsaline flush in lumen) Comments: N/A Signed by Chaparrita Baker on 2023-09-07 20:46 Physician Attestation: I reviewed and independently interpreted these images. I was presentfor the brown and critical portions of the ultrasound imaging and agree withor have edited the findings as documented. Final Signature by Garcia ARCHER on 2023-09-10 07:52 Laurent Douglas MD IMG POCT US ORDERABLE S Final Result * XR CHEST PORTABLE 1 VIEW (09/07/2023 19:45 EDT) Anatomical Region Laterality Modality Computed Radiogr aphy 09/07/2023 19:4 8 EDT Narrative 09/07/2023 19:48 EDT XR CHEST PORTABLE 1 VIEW ??09/07/2023 7:35 PM Clinical History/comments: sob; Comparison: 02/23/2023. Technique: Semiupright portable AP view of the chest. Findings: There is probably mild interstitial edema. No consolidation is identified. There is no evidence of pneumothorax or pleural fluid, but neither can be excluded on this non-upright radiograph. The cardiac silhouette is normal in size. The aorta is tortuous for age. [id number] Procedure Note Colt Burciaga MD - 09/07/2023 XR CHEST PORTABLE 1 VIEW 09/07/2023 7:35 PM Clinical History/comments: sob; Comparison: 02/23/2023. Technique: Semiupright portable AP view of the chest. Findings: There is probably mild interstitial edema. No consolidation is identified.There is no evidence of pneumothorax or pleural fluid, but neither can beexcluded on this non-upright radiograph. The cardiac silhouette is normalin size. The aorta is tortuous for age. [id number] Laurent Douglas MD IMG DIAGNOSTIC IMAGIN G ORDERABLES Final Result * TSH (09/07/2023 19:38 EDT) TSH 1.61 0.47 - 4.68 mIU/L 09/08/2023 3:[address] [facility] Blood VENOUS BLOOD / Unknown Venipuncture / Unknown 09/07/2023 19:38 EDT 09/07/2023 20:12 EDT [address] [facility] - 09/08/2023 3:01 EDT The results of this assay can be falsely lowered due to the consumption of Biotin. Anna Martin MD CHEMISTRY & BLOOD GAS ORDERABLES Final Result Performing Organization Address City/[facility]/ZIP Co de Phone Number [facility] [address] [place] [address] * NT PRO BNP (09/07/2023 19:38 EDT) NT-pro BNP <20 <221 pg/mL 09/07/2023 23:[address] [facility] Comment: In the acute setting NT-proBNP values <300 pg/mL have a 98% NPV for excluding acute heart failure. In outpatient populations, NT-proBNP values <125 have a 99% NPV for excluding heart failure. Blood VENOUS BLOOD / Unknown Venipuncture / Unknown 09/07/2023 19:38 EDT 09/07/2023 20:12 EDT Laurent Douglas MD CHEMISTRY & BLOOD GAS ORDERABLES Final Result Performing Organization Address [facility] Co de Phone Number [facility] [address] [place] [phone] * LACTIC ACID WITH REFLEX - USE FOR INITIAL SEPSIS EVALUATION (09/07/2023 19:38 EDT) Lactic Acid 1.4 <=2.0 mmol/L 09/07/2023 20:[address] [facility] Blood VENOUS BLOOD / Unknown Venipuncture / Unknown 09/07/2023 19:38 EDT 09/07/2023 20:12 EDT us Laurent Douglas MD CHEMISTRY & BLOOD GAS ORDERABLES Final Result Performing Organization Address City/[facility]/ZIP Co de Phone Number [facility] [address] [place] [address] * BACTERIAL CULTURE, BLOOD (09/07/2023 19:38 EDT) Organism ID No Growth at 5 days 09/12/2023 21:[address] [facility] Blood VENOUS BLOOD / Unknown Venipuncture / Unknown 09/07/2023 19:38 EDT 09/07/2023 20:57 EDT Laurent Douglas MD MICROBIOLOGY - GENERA L ORDERABLES Final Result Performing Organization Address City/[facility]/ZIP Co de Phone Number [facility] [address] [place] [address] * BACTERIAL CULTURE, BLOOD (09/07/2023 19:38 EDT) Organism ID No Growth at 5 days 09/12/2023 22:[address] [facility] Blood VENOUS BLOOD / Unknown Venipuncture / Unknown 09/07/2023 19:38 EDT 09/07/2023 22:39 EDT Laurent Douglas MD MICROBIOLOGY - GENERA L ORDERABLES Final Result Performing Organization Address [facility] Co de Phone Number [facility] [address] [place] [address] * COVID-19 TEST [facility] PCR (09/07/2023 19:25 EDT) Swab NASOPHARYNGEAL STRUCTURE / Unknown Swab / Unknown 09/07/2023 19:25 EDT 09/07/2023 20:11 EDT Laurent Douglas MD MICROBIOLOGY - GENERA L ORDERABLES Final Result Performing Organization Address City/[facility]/ZIP Co de Phone Number [facility] [address] [place] [address] * COVID-19 TESTING (09/07/2023 19:25 EDT) COVID-19 rt-PCR Result Negative Negative 09/07/2023 22:[address] [facility] Comment: This test has not been FDA cleared or approved. This test has been authorized by FDA under an EUA for use by authorized laboratories. This test has been authorized only for detection of nucleic acid from 2019-nCoV, not for any other viruses or pathogens. This test is only authorized for the duration of the declaration that circumstances exist justifying the authorization of emergency use of in vitro diagnostic tests for detection and/or diagnosis of 2019-nCoV under section 564(b)(1) of Act, 21 U.S.C ?? 360bbb-3(b) (1), unless the authorization is terminated or revoked sooner. Negative results do not preclude 2019-nCoV infection and should not be used as the sole basis for treatment or other patient management decisions. Negative results must be combined with clinical observations, patient history, and epidemiological information. Performed on the [employer] GeneXpert Instrument Performing Lab GeneXpert [facility] 09/07/2023 22:[address] [facility] Swab NASOPHARYNGEAL STRUCTURE / Unknown Swab / Unknown 09/07/2023 19:25 EDT 09/07/2023 20:11 EDT Laurent Douglas MD MICROBIOLOGY - Acesis L ORDERABLES Final Result Performing Organization Address City/[facility]/ZIP Co de Phone Number [facility] [address] [place] [address] * INFLUENZA A AND B,RSV PCR (09/07/2023 19:25 EDT) FLU A RNA Result (FLARES) Negative Negative 09/07/2023 22:[address] [facility] FLU B RNA Result (FLBRES) Negative Negative 09/07/2023 22:[address] [facility] RSV RNA Result (RSVRES) Negative Negative 09/07/2023 22:[address] [facility] Swab NASOPHARYNGEAL STRUCTURE / Unknown Swab / Unknown 09/07/2023 19:25 EDT 09/07/2023 20:11 EDT Laurent Douglas MD MICROBIOLOGY - GENERA L ORDERABLES Final Result Performing Organization Address City/[facility]/ZIP Co de Phone Number [facility] [address] [place], [place] [phone] * LIPASE (09/07/2023 18:15 EDT) Lipase 114 <251 U/L 09/07/2023 19:36 [facility] Blood VENOUS BLOOD / Unknown Venipuncture / Unknown 09/07/2023 18:15 EDT 09/07/2023 18:26 EDT Laurent Douglas MD CHEMISTRY & BLOOD GAS ORDERABLES Final Result [facility] [address] [place] [address] * (ABNORMAL) COMPREHENSIVE METABOLIC PANEL (CMP) (09/07/2023 18:15 EDT) Sodium 139 136 - 145 mmol/L 09/07/2023 19:36 [facility] Potassium 3.2(L) 3.5 - 5.0 mmol/L 09/07/2023 19:36 [facility] Chloride 98 96 - 110 mmol/L 09/07/2023 19:36 [facility] CO2 Total 27 22 - 32 mmol/L 09/07/2023 19:36 [facility] Glucose 98 70 - 99 mg/dl 09/07/2023 19:36 [facility] BUN 16 10 - 26 mg/dL 09/07/2023 19:36 [facility] Creatinine 1.46(H) 0.52 - 1.04 mg/dL 09/07/2023 19:36 [facility] eGFR 40(L) >60 mL/min/1.7 3m2 09/07/2023 19:36 [facility] Total Protein 8.1 6.3 - 8.2 g/dL 09/07/2023 19:36 [facility] Albumin 4.5 3.4 - 4.9 g/dL 09/07/2023 19:36 [facility] Alkaline Phosphatase 135(H) 38 - 126 U/L 09/07/2023 19:[address] [facility] AST 44 15 - 46 U/L 09/07/2023 19:36 [facility] ALT 20 <35 U/L 09/07/2023 19:36 [facility] Bilirubin, Total 1.1 <1.4 mg/dL 09/07/20 19:36 [facility] Calcium 8.9 8.5 - 10.5 mg/dL 09/07/2023 19:36 [facility] Albumin/Globulin Ratio 1.3 1.0 - 2.5 g/dL 09/07/2023 19:36 [facility] Anion Gap 14 5 - 14 mmol/L 09/07/2023 19:36 [facility] Blood VENOUS BLOOD / Unknown Venipuncture / Unknown 09/07/2023 18:15 EDT 09/07/2023 18:26 EDT us Laurent Douglas MD CHEMISTRY & BLOOD GAS ORDERABLES Final Result [facility] [address] [place] [address] * (ABNORMAL) COMPLETE BLOOD COUNT AND DIFFERENTIAL (09/07/2023 18:15 EDT) WBC 3.69(L) 4.00 - 12.40 K/cmm 09/07/2023 19:36 [facility] RBC 4.44 3.86 - 5.04 M/cmm 09/07/2023 19:36 [facility] Hemoglobin 13.6 11.6 - 15.2 g/dL 09/07/2023 19:36 [facility] HCT 39.0 34.9 - 44.4 % 09/07/2023 19:36 [facility] MCV 88 81 - 98 fL 09/07/2023 19:36 [facility] MCH 30.6 26.7 - 33.3 pg 09/07/2023 19:36 [facility] MCHC 34.9 32.1 - 35.9 g/dL 09/07/2023 19:36 [facility] RDW-CV 13.6 <14.7 % 09/07/2023 19:36 [facility] RDW-SD 43.8 <50.4 fl 09/07/2023 19:36 [facility] PLT 101(L) 141 - 377 K/cmm 09/07/2023 19:36 [facility] MPV 10.8 9.5 - 12.7 fL 09/07/2023 19:36 [facility] % Neutrophils 70.1 % 09/07/2023 19:36 [facility] % Lymphocytes 16.3 % 09/07/2023 19:36 [facility] % Monocytes 11.4 % 09/07/2023 19:36 [facility] % Eosinophils 1.4 % 09/07/2023 19:36 [facility] % Basophils 0.5 % 09/07/2023 19:36 [facility] % Immature Grans 0.3 % 09/07/20 19:36 [facility] Absolute Neutrophils 2.59 2.20 - 8.85 K/cmm 09/07/2023 19:36 [facility] Absolute Lymphocytes 0.60(L) 1.09 - 3.30 K/cmm 09/07/2023 19:36 [facility] Absolute Monocytes 0.42 0.10 - 0.80 K/cmm 09/07/2023 19:36 [facility] Absolute Eosinophils 0.05 0.03 - 0.61 K/cmm 09/07/2023 19:36 [facility] ABS Basophils 0.02 0.01 - 0.11 K/cmm 09/07/2023 19:36 [facility] Absolute Immature Grans 0.01 0.00 - 0.06 K/cmm 09/07/2023 19:36 [facility] Type of Differential: Auto 09/07/2023 19:[address] [facility] Blood VENOUS BLOOD / Unknown Venipuncture / Unknown 09/07/2023 18:15 EDT 09/07/2023 18:26 EDT us Laurent Douglas MD PACKAGES & DNA PROBE ORDERABLES Final Result Performing Organization Address City/[facility]/ZIP Co de Phone Number [facility] [address] [place] [address] * HOLD BLUE TOP (09/07/2023 18:15 EDT) Hold Hold 09/07/2023 19:[address] [facility] Blood VENOUS BLOOD / Unknown Venipuncture / Unknown 09/07/2023 18:15 EDT 09/07/2023 18:29 EDT us Laurent Douglas MD LAB INFO SERVICE AND SUPPORT & PHONE RESULT Final Result [facility] [address] [place] [address] * HOLD GREEN TOP (09/07/2023 18:15 EDT) Hold Hold 09/07/2023 19:[address] [facility] Blood VENOUS BLOOD / Unknown Venipuncture / Unknown 09/07/2023 18:15 EDT 09/07/2023 18:26 EDT Laurent Douglas MD LAB INFO SERVICE AND SUPPORT & PHONE RESULT Final Result [facility] [address] [place] [address] * HOLD LAVENDER TOP (09/07/2023 18:15 EDT) Hold Hold 09/07/2023 19:[address] [facility] Blood VENOUS BLOOD / Unknown Venipuncture / Unknown 09/07/2023 18:15 EDT 09/07/2023 18:26 EDT us Laurent Douglas MD LAB INFO SERVICE AND SUPPORT & PHONE RESULT Final Result Performing Organization Address City/[facility]/ZIP Co de Phone Number [facility] [address] [place] [address] * HOLD SST (09/07/2023 18:15 EDT) Hold Hold 09/07/2023 19:[address] [facility] Blood VENOUS BLOOD / Unknown Venipuncture / Unknown 09/07/2023 18:15 EDT 09/07/2023 18:26 EDT us Laurent Douglas MD LAB INFO SERVICE AND SUPPORT & PHONE RESULT Final Result Performing Organization Address [facility] Co de Phone Number [facility] [address] [place] [address] * EKG 12-LEAD (09/07/2023 18:06 EDT) 09/07/2023 18:0 6 EDT [address] [facility] EKG - 09/09/2023 13:51 EDT ?[facility] ? Test Date: ?2023-09-07 Pat Name: ? PHYLISS OBOTHE ?Department: ?? ED ? Room: ? WB01 Gender: ? Female ? Screw Machine Hand: ?? [id number] : ?1960 ? Requested By: MOO MONTOYA Order Number: [id number] ? Reading : ?? MARVEL LUGO MD ? Measurements Intervals ?Wayne ? Rate: ? 77 ? P: ?33 OR: ? 151 ?QRS: ?43 QRSD: ? 97 ? T: ?24 QT: ? 404 ? QTc: ?458 ? Interpretive Statements SINUS RHYTHM NONSPECIFIC T-WAVE ABNORMALITY Compared to ECG 04/28/2023 21:37:18 T-wave abnormality now present I reviewed the tracing and have either agreed or edited the findings in this report. Electronically Signed On 09-09-2023 13:51:11 EDT by MARVEL LUGO MD. Procedure Note Marvel Lugo Jr., MD - 09/09/2023 [facility] Test Date: 2023-09-07 Pat Name: TARA BOOTHE Department: ED Room: 01 Gender: Female Screw Machine Hand: [id number] : 1960 Requested By: MOO TRIMBLE Order Number: [id number] Reading MD: MARVEL LUGO MD Measurements Intervals Wayne Rate: 77 P: 33 OR: 151 QRS: 43 QRSD: 97 T: 24 QT: 404 QTc: 458 Interpretive Statements SINUS RHYTHM NONSPECIFIC T-WAVE ABNORMALITY Compared to ECG 04/28/2023 21:37:18 T-wave abnormality now present I reviewed the tracing and have either agreed or edited the findings inthis report. Electronically Signed On 09-09-2023 13:51:11 EDT by MARVEL VERNON. us Laurent Douglas MD CARDIAC ECG ORDERABLE S Final Result [facility] EKG documented in this encounter Visit Diagnoses Diagnosis MUSA (acute kidney injury) (HCC-CMS)- Primary Acute kidney failure, unspecified MUSA (acute kidney injury) (HCC-CMS) Acute kidney failure, unspecified Hypokalemia Hypopotassemia Other cirrhosis of liver (HCC-CMS) Chronic respiratory failure with hypoxia (HCC-CMS) Chronic respiratory failure Hypokalemia Hypopotassemia Other cirrhosis of liver (HCC-CMS) Chronic respiratory failure with hypoxia (HCC-CMS) Chronic respiratory failure documented in this encounter Admitting Diagnoses Diagnosis MUSA (acute kidney injury) (HCC-CMS) Acute kidney failure, unspecified documented in this encounter Administered Medications Inactive Administered Medications - up to 3 most recent administrations Medication Order MAR Action Action Date Dose Rate Site albuterol inhaler 90-180 mcg 90-180 mcg (1-2 Puff), inhalation, 4 TIMES DAILY, First dose (after last modification) on Kirsten 09/08/23 at 1700, Until Discontinued, Routine Given 09/09/2023 11:37 EDT 180 mcg Given 09/09/2023 9:08 EDT 180 mcg Given 09/08/2023 21:22 EDT 180 mcg doxepin (SINEQUAN) capsule 10 mg 10 mg, oral, AT BEDTIME, First dose (after last modification) on Kirsten 09/08/23 at 2100, Until Discontinued, Routine Given 09/08/2023 22:30 EDT 10 mg fluticasone propionate (FLOVENT) 110 mcg/actuation inhaler 1 Puff 1 Puff, inhalation, 2 TIMES DAILY, First dose on Kirsten 09/08/23 at 0900, Until Discontinued Given 09/09/2023 9:10 EDT 1 P uff Given 09/08/2023 21:23 EDT 1 Puff Given 09/08/2023 8:41 EDT 1 Puff gabapentin (NEURONTIN) capsule 100 mg 100 mg, oral, 3 TIMES DAILY, First dose on Kirsten 09/08/23 at 0900, Until Discontinued, Routine Given 09/09/2023 14:13 E DT 100 mg Given 09/09/2023 9:08 EDT 100 mg Given 09/08/2023 21:16 EDT 100 mg heparin injection 5,000 Units 5,000 Units, subcutaneous, EVERY 8 HOURS, First dose on Kirsten 09/08/23 at 0800, Until Discontinued, Routine Given 09/09/2023 7:49 EDT 5,000 Units Given 09/08/2023 23:34 EDT 5,000 Units Given 09/08/2023 15:20 EDT 5,000 Units HYDROmorphone (DILAUDID) tablet 2 mg 2 mg, oral, EVERY 4 HOURS PRN, Starting on Tue09/08/23 at 0440, Until Tue09/09/23 at 1718, Pain, Routine Given 09/09/2023 14:16 EDT 2 mg Given 09/09/2023 7:49 EDT 2 mg Given 09/08/2023 21:22 EDT 2 mg HYDROmorphone (PF) (DILAUDID) 0.5 mg/0.5 mL syringe 0.5 mg 0.5 mg, intravenous, NOW X1, 1 dose, On Tue09/07/23 at 1930, STAT Given 09/07/2023 19:33 EDT 0.5 mg HYDROmorphone (PF) (DILAUDID) 0.5 mg/0.5 mL syringe 0.5 mg 0.5 mg, intravenous, NOW X1, 1 dose, On Tue09/08/23 at 0200, Routine Given 09/08/2023 2:06 EDT 0.5 mg hydrOXYzine (ATARAX) tablet 25 mg 25 mg, oral, 3 TIMES DAILY PRN, Starting on Tue09/08/23 at 0415, Until Tue09/09/23 at 1718, Anxiety, Routine ipratropium-albuteroL (DUONEB) 0.5 mg-3 mg(2.5 mg base)/3 mL nebulizer solution 3 mL 3 mL, nebulization, EVERY 6 HOURS, First dose (after last modification) on Kirsten 09/08/23 at 1200, Until Discontinued, Routine Given 09/08/2023 12:12 EDT 3 mL ipratropium-albuteroL (DUONEB) 0.5 mg-3 mg(2.5 mg base)/3 mL nebulizer solution 3 mL 3 mL, nebulization, EVERY 4 HOURS PRN, Starting on Tue09/08/23 at 1600, Until Tue09/09/23 at 1718, Wheezing, Routine lactated ringers BOLUS 1,000 mL 1,000 mL, intravenous, NOW X1, 1 dose, On Tue09/07/23 at 1930, STAT New Bag 09/07/2023 19:33 EDT 1,000 mL lactulose (CHRONULAC) 20 gram/30 mL solution 30 mL 30 mL, oral, EVERY 6 HOURS, First dose (after last modification) on Kirsten 09/08/23 at 1530, Until Discontinued, Routine Given 09/09/2023 9:08 EDT 30 mL Given 09/08/2023 21:15 EDT 30 mL Given 09/08/2023 15:58 EDT 30 mL levothyroxine (SYNTHROID) tablet 25 mcg 25 mcg, oral, DAILY BEFORE BREAKFAST, First dose on Tue09/08/23 at 0700, Until Discontinued, Routine Given 09/09/2023 5:59 EDT 25 mcg Given 09/08/2023 7:55 EDT 25 mcg ondansetron (PF) (ZOFRAN) injection 4 mg 4 mg, intravenous, NOW X1, 1 dose, On Tue09/07/23 at 1930, STAT Given 09/07/2023 19:33 EDT 4 mg potassium chloride in water infusion 20 mEq 20 mEq, intravenous, at 50 mL/hr, NOW X1, 1 dose, On Tue09/08/23 at 0100, STAT Given 09/08/2023 1:45 EDT 20 mEq 50 mL/hr potassium chloride SA (KLOR-CON M10) tablet 20 mEq 20 mEq, oral, NOW X1, 1 dose, On Kirsten 09/08/23 at 1300, Routine Given 09/08/2023 14:37 EDT 20 mEq ramelteon (ROZEREM) tablet 8 mg 8 mg, oral, AT BEDTIME, First dose on Kirsten 09/08/23 at 2100, Until Discontinued, Routine Given 09/08/2023 21:16 EDT 8 mg sucralfate (CARAFATE) tablet 1 g 1 g, oral, 4 TIMES DAILY, First dose on Kirsten 09/08/23 at 0800, Until Discontinued, Routine Given 09/09/2023 11:37 EDT 1 g Given 09/09/2023 7:49 EDT 1 g Given 09/08/2023 21:16 EDT 1 g tiotropium bromide (SPIRIVA RESPIMAT) 2.5 mcg/actuation inhalation mist 2 Puff 2 Puff (5 mcg), inhalation, DAILY, First dose on Kirsten 09/08/23 at 0900, Until Discontinued Given 09/09/2023 9:10 EDT 2 P uffs Given 09/08/2023 8:41 EDT 2 Puffs venlafaxine (EFFEXOR-XR) XR capsule 150 mg 150 mg, oral, DAILY, First dose on Kirsten 09/08/23 at 0900, Until Discontinued, Routine Given 09/09/2023 9:08 EDT 150 mg Given 09/08/2023 8:38 EDT 150 mg documented in this encounter Active and Recently Administered Medications Times are shown in EDT. Scheduled Medication Order 09/07/2023 09/08/2023 09/09/2023 albuterol inhaler 90-180 mcg 90-180 mcg (1-2 Puff), inhalation, 4 TIMES DAILY, First dose (after last modification) on Kirsten 09/08/23 at 1700, Until Discontinued, Routine 1709 (Given - Provider: Vazquez Gray RN)2122 (Given - Provider: Maricel Garibay RN) 0908 (Given - Provider: Vazquez Gray RN)1137 (Given - Provider: Vazquez Gray RN)1700 (Canceled Entry - Provider: Batch Job User Admin - Comment: Automatically canceled at discontinue of medication order) doxepin (SINEQUAN) capsule 10 mg 10 mg, oral, AT BEDTIME, First dose (after last modification) on Tue09/08/23 at 2100, Until Discontinued, Routine 2230 (Given - Provider: Maricel Garibay RN) fluticasone propionate (FLOVENT) 110 mcg/actuation inhaler 1 Puff 1 Puff, inhalation, 2 TIMES DAILY, First dose on Tue09/08/23 at 0900, Until Discontinued 0841 (Given - Provider: Tatyana Sullivan RN)2123 (Given - Provider: Maricel Garibay RN) 0910 (Given - Provider: Vazquez Gray RN) gabapentin (NEURONTIN) capsule 100 mg 100 mg, oral, 3 TIMES DAILY, First dose on Tue09/08/23 at 0900, Until Discontinued, Routine 0838 (Given - Provider: Tatyana Sullivan RN)1437 (Given - Provider: Tatyana Sullivan RN)2116 (Given - Provider: Maricel Garibay RN) 0908 (Given - Provider: Vazquez Gray, KNEN)1413 (Given - Provider: Vazquez Gray RN) heparin injection 5,000 Units 5,000 Units, subcutaneous, EVERY 8 HOURS, First dose on Tue09/08/23 at 0800, Until Discontinued, Routine 0756 (Given - Provider: Tatyana Sullivan RN)1520 (Given - Provider: Molly Hayward RN)2334 (Given - Provider: Maricel Garibay RN) 0749 (Given - Provider: Vazquez Gray RN)1600 (Canceled Entry - Provider: Batch Job User Admin - Comment: Automatically canceled at discontinue of medication order) HYDROmorphone (PF) (DILAUDID) 0.5 mg/0.5 mL syringe 0.5 mg (COMPLETED) 0.5 mg, intravenous, NOW X1, 1 dose, On Tue09/07/23 at 1930, STAT 1933 (Given - Provider: Marilu Rodgers RN) HYDROmorphone (PF) (DILAUDID) 0.5 mg/0.5 mL syringe 0.5 mg (COMPLETED) 0.5 mg, intravenous, NOW X1, 1 dose, On Tue09/08/23 at 0200, Routine 0206 (Given - Provider: Wilman Farah RN) ipratropium-albuteroL (DUONEB) 0.5 mg-3 mg(2.5 mg base)/3 mL nebulizer solution 3 mL (CANCELED) 3 mL, nebulization, EVERY 6 HOURS, First dose (after last modification) on Tue09/08/23 at 1200, Until Discontinued, Routine 1212 (Given - Provider: Tatyana Sullivan, KENN) lactated ringers BOLUS 1,000 mL (COMPLETED) 1,000 mL, intravenous, NOW X1, 1 dose, On Tue09/07/23 at 1930, STAT 1933 (New Bag - Provider: Marilu Rodgers, KENN) 0203 (IV Stopped - Provider: Marilu Rodgers RN) lactulose (CHRONULAC) 20 gram/30 mL solution 30 mL 30 mL, oral, EVERY 6 HOURS, First dose (after last modification) on Tue09/08/23 at 1530, Until Discontinued, Routine 1558 (Given - Provider: Vazquez Gray RN)2115 (Given - Provider: Maricel Garibay, KENN) 0357 (Not Given - Provider: Maricel Garibay RN - Reason: Other - Comment: Pt asleep)0908 (Given - Provider: Vazquez Gray, KENN)1458 (Not Given - Provider: Vazquez Gray RN - Reason: Patient/family refused) levothyroxine (SYNTHROID) tablet 25 mcg 25 mcg, oral, DAILY BEFORE BREAKFAST, First dose on Tue09/08/23 at 0700, Until Discontinued, Routine 0755 (Given - Provider: Tatyana Sullivan, KENN) 0559 (Given - Provider: Maricel Garibay, KENN)0700 (Canceled Entry - Provider: Maricel Garibay RN) ondansetron (PF) (ZOFRAN) injection 4 mg (COMPLETED) 4 mg, intravenous, NOW X1, 1 dose, On Tue09/07/23 at 1930, STAT 1933 (Given - Provider: Marilu Rodgers RN) potassium chloride in water infusion 20 mEq (COMPLETED) 20 mEq, intravenous, at 50 mL/hr, NOW X1, 1 dose, On Tue09/08/23 at 0100, STAT 0145 (Given - Provider: Marilu Rodgers RN)0342 (Completed - Provider: Wilman Farah RN) potassium chloride SA (KLOR-CON M10) tablet 20 mEq (COMPLETED) 20 mEq, oral, NOW X1, 1 dose, On Tue09/08/23 at 1300, Routine 1437 (Given - Provider: Tatyana Sullivan RN) ramelteon (ROZEREM) tablet 8 mg 8 mg, oral, AT BEDTIME, First dose on Tue09/08/23 at 2100, Until Discontinued, Routine 2116 (Given - Provider: Maricel Garibay, KENN) sucralfate (CARAFATE) tablet 1 g 1 g, oral, 4 TIMES DAILY, First dose on Tue09/08/23 at 0800, Until Discontinued, Routine 1137 (Not Given - Provider: Tatyana Sullivan RN - Reason: Other - Comment: need to wait between synthroid and admin per pharmD)1212 (Given - Provider: Tatyana Sullivan RN)1709 (Given - Provider: Vazquez Gray RN)2116 (Given - Provider: Maricel Garibay, KENN) 0749 (Given - Provider: Vazquez Gray RN)1137 (Given - Provider: Vazquez Gray RN)1700 (Canceled Entry - Provider: Batch Job User Admin - Comment: Automatically canceled at discontinue of medication order) tiotropium bromide (SPIRIVA RESPIMAT) 2.5 mcg/actuation inhalation mist 2 Puff 2 Puff (5 mcg), inhalation, DAILY, First dose on Tue09/08/23 at 0900, Until Discontinued 0841 (Given - Provider: Tatyana Sullivan RN) 0910 (Given - Provider: Vazquez Gray RN) venlafaxine (EFFEXOR-XR) XR capsule 150 mg 150 mg, oral, DAILY, First dose on Tue09/08/23 at 0900, Until Discontinued, Routine 0838 (Given - Provider: Tatyana Sullivan RN) 0908 (Given - Provider: Vazquez Gray RN) PRN Medication Order 09/07/2023 09/08/2023 09/09/2023 diclofenac sodium gel 2 g 2 g, topical, 2 TIMES DAILY PRN, Starting on Kirsten 09/08/23 at 0228, Until Tue09/09/23 at 1718, Pain, Knee pain, Routine HYDROmorphone (DILAUDID) tablet 2 mg 2 mg, oral, EVERY 4 HOURS PRN, Starting on Kirsten 09/08/23 at 0440, Until Tue09/09/23 at 1718, Pain, Routine 0946 (Given - Provider: Tatyana Sullivan, KENN)1520 (Given - Provider: Molly Hayward, RN)2122 (Given - Provider: Maricel Garibay RN) 0749 (Given - Provider: Vazquez Gray, KENN)1416 (Given - Provider: Vazquez Gray RN) hydrOXYzine (ATARAX) tablet 25 mg 25 mg, oral, 3 TIMES DAILY PRN, Starting on Kirsten 09/08/23 at 0415, Until Tue09/09/23 at 1718, Anxiety, Routine ipratropium-albuteroL (DUONEB) 0.5 mg-3 mg(2.5 mg base)/3 mL nebulizer solution 3 mL 3 mL, nebulization, EVERY 4 HOURS PRN, Starting on Kirsten 09/08/23 at 1600, Until Tue09/09/23 at 1718, Wheezing, Routine lidocaine (PF) 10 mg/mL (1 %) injection 2 mg 2 mg, intradermal, PRN, 4 doses, Starting on Kirsten 09/08/23 at 0228, Until Tue09/09/23 at 1718, peripheral intravenous catheter placement, Routine ondansetron (ZOFRAN-ODT) disintegrating tablet 4 mg 4 mg, oral, EVERY 8 HOURS PRN, Starting on Kirsten 09/08/23 at 0228, Until Tue09/09/23 at 1718, Nausea, Routine documented in this encounter Orders Medications Ordered That Luc ht Not Have Been Administered Count Last Ordered Date First Ordered Date acetaminophen (TYLENOL) tablet 650 mg 1 albuterol inhaler 90-180 mcg 1 09/08/2023 diclofenac sodium gel 2 g 1 09/08/2023 doxepin (SINEQUAN) capsule 10-20 mg 1 09/08 hydrOXYzine (ATARAX) tablet 25 mg 1 023 hydrOXYzine (ATARAX) tablet 25-50 mg 1 08/21 ipratropium-albuteroL (DUONE B) 0.5 mg-3 mg(2.5 mg base)/3 mL nebulizer solution 3 mL 2 09/08/2023 lactated ringers (LR) infusion 1 09/08/2023 lactulose (CHRONULAC) 10 gra m/15 mL solution 15-30 mL 1 09/08/2023 lactulose (CHRONULAC) 20 gra m/30 mL solution 30 mL 2 09/08/2023 lidocaine (PF) 10 mg/mL (1 % ) injection 2 mg 1 09/08/2023 ondansetron (ZOFRAN-ODT) dis integrating tablet 4 mg 1 09/08/2023 oxyCODONE (ROXICODONE) immed iate release tablet 2.5 mg 1 09/08/2023 oxyCODONE (ROXICODONE) immed iate release tablet 5 mg 1 09/08/2023 Diet Count Last Ordered Date First Orde red Date DISCHARGE DIET 1 09/09/2023 Nursing Count Last Ordered Date First Orde red Date ACTIVITY INSTRUCTIONS 1 09/09/2023 BATHING INSTRUCTIONS 1 09/09/2023 DRIVING INSTRUCTIONS 1 09/09/2023 VTE PHARMACOLOGIC PROPHYLAXI S CURRENTLY ORDERED OR ON ALTERNATIVE THER 1 09/08/2023 PT Count Last Ordered Date First Orde red Date PT EVALUATION AND TREAT 3 09/09/202308/21 Respiratory Care Count Last Ordered Date First Ordered Date AIRWAY CLEARANCE THERAPY 1 09/08/2023 RESPIRATORY CARE EVALUATION ONLY 1 09/08/20 Admission Count Last Ordered Date First Orde red Date ADMIT TO INPATIENT 1 09/08/2023 Transfer Count Last Ordered Date First Orde red Date ED BED REQUEST 1 09/08/2023 Discharge Count Last Ordered Date First Orde red Date DISCHARGE PATIENT 1 09/09/2023 Legal Count Last Ordered Date First Orde red Date MISCELLANEOUS DISCHARGE INSTRUCTIONS 1 08/22 documented in this encounter Additional Health Concerns Infection Onset Date Last Indicated Resolved Time R/O COVID-19 09/07/2023 09/07/2023 09/07/2023 22:1 6 EDT documented as of this encounter 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 1 [facility], [address]rd [place] [address] Manager Print 02/21/23 05/03/24 documented as of this encounter
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
--- OUTSIDE RECORDS SUMMARY | 2024-11-22 16:53 | XMS_ITS | Encounter Summary ---
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 Not on file Not [...] Office Visit [facility] Ophthalmology - [address] [id number] Gagandeep Rome MD [address] [place] [address], [facility] [address] [place] [phone] 02/11/2025 13:30 EDT Telemedicine [facility] Hematology & Oncology [address] [phone] Dana Padilla MD [address] [place] [address], [facility] [address] [place] [phone] documented as of this encounter Visit Diagnoses Not on filedocumented in this encounter Care Teams Body Care Manager Relationship Specialty Start Date End Date Emigdio Veronica MD [address] [place] [phone] PCP - General Internal Medicine - Primary Care 05/22/20 02/21/24 Izabella Snowden, ENVIRONMENTAL MARKETER 1 [facility], 3rd [place] [address] Shear Operator Helper 02/21/23 05/03/24 documented as of this encounter
--- OUTSIDE RECORDS SUMMARY | 2024-11-22 16:53 | XMS_ITS | Encounter Summary ---
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 She has still not eaten anything and barely drank. When Justina saw the patient this morning B/P 92/54, pulse 86, 90% on room air. SOB with even minimal activity. Patient reports minimal urination with very dark urine when she does urinate. Patient reports she is still having thoughts of rafael f harm. She is still having severe abdominal pain and flank pain. Patient did not want to go to theED, but was agreeable to the above being discussed with CHENTE Alcantar who saw her prior to her last hospital admission on 09/07. Scottie advised strongly patient present to the ED for exam for both physical and mental health concerns. After triage nurse discussing with again that Scottie strongly recommended the ED patient was agreeable to triage calling 911 for her. Triage called 911 and also called report to González at [facility]. documented in this encounter Plan of Treatment Upcoming Encounters Date Type Department Care Team (Late st Contact Info) Description 01/04/2025 13:00 EST Office Visit [facility] Ophthalmology - [address] [phone] Gagandeep Rome MD 111 [facility], Level 5 [place] [phone] 02/11/2025 13:30 EDT Telemedicine [facility] Hematology & Oncology - [address] [phone] Dana Padilla MD 111 [facility], Level [address] [place] [phone] documented as of this encounter Visit Diagnoses Not on filedocumented in this encounter Care Teams Merit System Director Relationship Specialty Start Date End Date Emigdio Veronica MD 2 [place] [address] PCP - General Internal Medicine - Primary Care 05/22/20 02/21/24 Izabella Snowden, [facility] 1 [facility] access hospital, 3rd [place] [phone] Diesel Mechanic Construction 02/21/23 05/03/24 documented as of this encounter
--- OUTSIDE RECORDS SUMMARY | 2024-11-22 16:53 | XMS_ITS | Encounter Summary ---
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 Answer Date of Assessment Author No 09/14/2023 15:57 Lala Hanyes, KENN * Are you blind or do you have serious difficulty seeing, even when wearing glasses? Answer Date of Assessment Author No 09/08/2023 17:08 Aj Hall RN * Do you have serious difficulty walking or climbing stairs? (5 years old or older) Answer Date of Assessment Author Yes 09/08/2023 17:08 jA Hall RN * Do you have difficulty [...] Progress Notes * Izabella Snowden LICSW - 09/14/2023 1547 EDT PHSO Golf Tournament Consultant Care Coordination Golf Tournament Consultant phone outreach to patient for check in following discharge from inpatient hospitalization on 09/09/23. Patient did not answer, CM left VM for patient. PLAN: LVM for patient. DARNELL MCCORMICK 09/14/2023 15:47 documented in this encounter Plan of Treatment Upcoming Encounters Date Type Department Care Team (Late st Contact Info) Description 01/04/2025 13:00 EST Office Visit [facility] Ophthalmology - [address] [phone] Gagandeep Rome MD [address] [place] [address], [facility] 5 [place] [address] 02/11/2025 13:30 EDT Telemedicine [facility] Hematology & Oncology [address] [phone] Dana Padilla MD [address] [place] [address], [facility] 2 [place] [address] documented as of this encounter Visit Diagnoses Not on filedocumented in this encounter Care Teams Emergency Room Physician Assistant Relationship Specialty Start Date End Date Emigdio Veronica MD 2 [place] [phone] PCP - General Internal Medicine - Primary Care 05/22/20 02/21/24 Izabella Snowden, [facility] 1 [facility], 3rd [place] [address] Golf Tournament Consultant 02/21/23 05/03/24 documented as of this encounter
--- OUTSIDE RECORDS SUMMARY | 2024-11-22 16:53 | XMS_ITS | Encounter Summary ---
Author Organization [facility] Address [address] [place] [address] Care Team Providers Care Cfa Name Role Phone Emigdio Veronica MD Primary Care Provider + Izabella Snowden [facility] Unavailable [phone] Reason for Referral * Referral (Routine/Next Available) - Closed Specialty Diagnoses / Procedures Referred By [facility] Referred To Contact Multidisciplinary Diagnoses Frequent falls Chronic insomnia MUSA (acute kidney injury) ([facility]) Hypokalemia Chronic respiratory failure with hypoxia ([facility]) Emigdio Veronica MD Phone: tel: fax: [address], [address] [place] [address] Phone: tel: fax: Referral ID Status Reason Start Date Expiration Date V isits Requested Visits Authorized [id number] Closed Specialty Services Required 09/14/2023 1 0 Question Answer Reason for Request: Housing assistance Comments Dr Veronica concerned current housing situation is contributing to patient's chronic illnesses and risk for a repeat MUSA/hospitalization. Patient also despair in her current housing situation to Dr Veronica Reason for Visit * Reason Onset Date Comments Social Work 09/14/2023 Encounter Details Date Type Department Care Team (Late st Contact Info) Description 09/14/[address] 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 She has put in a notice to leave, but at the 09/13 appointment didn't yet have a new home coordinated. Referral placed to outpatient care management. Recent hospitalization. documented in this encounter Plan of Treatment Upcoming Encounters Date Type Department Care Team (Late st Contact Info) Description 01/04/2025 13:[address] [facility] Ophthalmology - [address] [phone] Gagandeep Rome MD [address] [place] [address], [address] [place] [address] 02/11/2025 13:[address] [facility] Hematology & Oncology - [address] [address] Dana Padilla MD [address] [place] [address], [facility] 2 [place] [phone] Scheduled Referrals Name Type Priority Associated Diagnoses Order Schedule AMB CONS/FOLLOW UP OUTPATIENT CARE MANAGEMENT - [facility] Outpatient Referral Routine/Next Available Frequent falls Chronic insomnia MUSA (acute kidney injury) ([facility]) Hypokalemia Chronic respiratory failure with hypoxia (HCC-CMS) Expected: 09/21/2023 (Approximate), Expires: 09/14/2024 documented as of this encounter Visit Diagnoses Diagnosis Frequent falls- Primary Personal history of fall Chronic insomnia Insomnia, unspecified MUSA (acute kidney injury) ([facility]) Acute kidney failure, unspecified Hypokalemia Hypopotassemia Chronic respiratory failure with hypoxia ([facility]) Chronic respiratory failure documented in this encounter Care Teams Cfa Relationship Specialty Start Date End Date Emigdio Veronica MD 2 [place] [address] PCP - General Internal Medicine - Primary Care 05/22/20 02/21/24 Izabella Snowden, ASBESTOS SHINGLE INSPECTOR 1 [facility], 3rd [place] [address] Bale Opener 02/21/23 05/03/24 documented as of this encounter
--- OUTSIDE RECORDS SUMMARY | 2024-11-22 16:53 | XMS_ITS | Encounter Summary ---
Author Organization [facility] Address [address] [place] [address] Care Team Providers Care Monkey Trainer Name Role Phone Emigdio Veronica MD Primary Care Provider + Izabella Snowden 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 ondansetron (ZOFRAN) 4 mg tablet [Pharmacy Med Name: ONDANSETRON HCL 4 MG TABLET] 90 Tablet 0 Sig: TAKE 1 TABLET BY MOUTH EVERY 8 HOURS NEEDED FOR NAUSEA ??? gabapentin (NEURONTIN) 300 mg capsule [Pharmacy Med Name: GABAPENTIN 300 MG CAPSULE] 270 Capsule 0 Sig: TAKE 1 CAPSULE BY MOUTH THREE TIMES A DAY [facility]/pharmacy #[id number] - [address] Confirmed Pharmacy? [facility] Request Patient out of medication? Unknown Last Refill Date: Gabapentin- 07/05/23. Ondansetron- 07/31/23 Refills left? (explain exceptions requiring early refill) No, likely advance request from pharmacy for gabapentin. Recent Visits Date Type Provider Dept 08/25/23 Office Visit Ruth Ortez MD PhD [facility] [place] Adult Prim Care 07/13/23 Office Visit Emigdio Veronica III, MD [facility] Adult Prim Care 06/29/23 Office Visit Scottie Campuzano PA-C [facility] Adult Prim Care 06/10/23 Office Visit Emigdio Veroinca III, MD [facility] Adult Prim Care 05/26/23 Office Visit Scottie Campuzano PA-C [facility] Adult Prim Care 05/05/23 Office Visit Emigdio Veronica III, MD [facility] Adult Prim Care 04/26/23 Office Visit Scottie Campuzano PA-C [facility] Adult Prim Care 03/15/23 Office Visit Emigdio Veronica III, MD [facility] Adult Prim Care 02/24/23 Office Visit Scottie Campuzano PA-C [facility] Adult Prim Care 02/16/23 Office Visit Scottie Campuzano PA-C [facility] Adult Prim Care Showing recent visits within past 540 days with a meds authorizing provider and meeting all other requirements Future Appointments Date Type Provider Dept 09/21/23 Appointment Emigdio Veronica III, MD [facility] Adult Prim Care Showing future appointments within next 150 days with a meds authorizing provider and meeting all other requirements Future appointment: Already Scheduled PAM IVEY RN 08/31/2023 11:55 documented in this encounter Plan of Treatment Upcoming Encounters Date Type Department Care Team (Late st Contact Info) Description 01/04/2025 13:00 EST Office Visit [facility] Ophthalmology - [address] [phone] Gagandeep Rome MD [address] [place] [address], [address] [place] [phone] 02/11/2025 13:30 EDT Telemedicine [facility] Hematology & Oncology - [facility] [address] [place] [address] Dana Padilla MD 111 [facility], Level [address] [place] [address] documented as of this encounter Visit Diagnoses Not on filedocumented in this encounter Discontinued Medications Medication Sig Discontinue Reason Start Date End Da te gabapentin (NEURONTIN) 300 mg capsule TAKE 1 CAPSULE BY MOUTH THREE TIMES A DAY 07/05/2023 08/31/2023 ondansetron (ZOFRAN) 4 mg tablet TAKE 1 TABLET BY MOUTH EVERY 8 HOURS NEEDED FOR NAUSEA 07/31/2023 08/31/2023 documented as of this encounter Additional Health Concerns Infection Onset Date Last Indicated Resolved Time R/O COVID-19 09/07/2023 09/07/2023 09/07/2023 22:1 6 EDT documented as of this encounter Care Teams Monkey Trainer Relationship Specialty Start Date End Date Emigdio Veronica MD 2 [place] [phone] PCP - General Internal Medicine - Primary Care 05/22/20 02/21/24 None, Provider PCP - General 02/24/24 03/18/24 Gabriel Gandara PA PCP - General 03/19/24 09/11/24 Mirna Guerrero PA [address] [place] [address] PCP - General 09/12/24 Izabella Snowden, LOAN COORDINATOR 1 [facility], 3rd [place] [phone] Front Desk Clerk 02/21/23 05/03/24 documented as of this encounter
--- OUTSIDE RECORDS SUMMARY | 2024-11-22 16:54 | XMS_ITS | Encounter Summary ---
Author Organization [facility] Address [address] [place] [address] Care Team Providers Care Agricultural Loan Officer Name Role Phone Emigdio Veronica MD Primary Care Provider + Izabella Snowden [facility] Reason for Visit * Reason Onset Date Comments Wheezing 08/12/2023 Insomnia 08/12/2023 Fever 08/12/2023 Chest Congestion 08/12/2023 Shortness of Breath 08/12/2023 Encounter Details Date Type Department Care Team (Late st Contact Info) Description 08/12/2023 Telephone [facility] Adult Primary Care - [place] [address] [place] [address] Emigdio Veronica MD 2 [place] [address] Wheezing; Insomnia; Fever; Chest Congestion; Shortness of Breath Social History Tobacco Use Types Packs/Day Years [...] 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 1 Each 1 08/12/2023 albuterol 90 mcg/actuation inhaler Inhale 1-2 Puffs as directed every 4 hours as needed for Wheezing. 1 Each 1 08/12/2023 3 documented in this encounter Miscellaneous Notes * Telephone Encounter - Sharon Joseph RN - 08/12/2023 0854 EDT For the past 3 days pt has not been feeling well. T 100.4 yesterday, no fever currently pt has Congestion, non-productive cough. Pt states that she is taking her inhalers. Pt states that she does not have albuterol inhaler. Refilled the albuterol inhaler pt will pick pack worker inhaler today. Pt is using her oxygen as well. She states she will pick pack worker her inhaler and if she starts to feel worse she will go to the walk in. Pt scheduled with [facility] on 08/17/23 for an appt * Telephone Encounter - Noemi Hall - 08/12/2023 0839 EDT Reason for Call: Wheezing, Insomnia, Fever, and Chest Congestion Summary/Symptoms: patient states hasn't felt well for three days. Has been wheezing and short of breath. Has needed additional oxygen. Also has congestion and fever. Hs not slept in three days Onset and Duration: Few days and getting worse Previously seen at/discussed with this office for issue: N/A Does the patient have a computer, laptop or smart phone with high speed & video capability? N/A If so, would they be interested in doing a video visit via [employer]? N/A Appointment Offered? No Noemi Hall 08/12/2023 8:40 documented in this encounter Plan of Treatment Upcoming Encounters Date Type Department Care Team (Late st Contact Info) Description 01/04/2025 13:00 EST Office Visit [facility] Ophthalmology - [address] [phone] Gagandeep Rome MD [address] [place] [address], [facility] 5 [place] [address] 02/11/2025 13:30 EDT Telemedicine [facility] Hematology & Oncology [address] [phone] Dana Padilla MD [address] [place] [address], [address] [place] [phone] documented as of this encounter Visit Diagnoses Not on filedocumented in this encounter Discontinued Medications Medication Sig Discontinue Reason Start Date End Da te albuterol 90 mcg/actuation inhaler Inhale 1-2 Puffs as directed every 4 hours as needed for Wheezing. Reorder 04/13/2021 08/12/2023 albuterol 90 mcg/actuation inhaler Inhale 1-2 Puffs as directed every 4 hours as needed for Wheezing. Reorder 08/12/2023 08/12/2023 documented as of this encounter Care Teams Agricultural Loan Officer Relationship Specialty Start Date End Date Emigdio Veronica MD 2 [place] [phone] PCP - General Internal Medicine - Primary Care 05/22/20 02/21/24 Izabella Snowden, [facility] 1 [facility], 3rd [place] [phone] Manager Port 02/21/23 05/03/24 documented as of this encounter
--- OUTSIDE RECORDS SUMMARY | 2024-11-22 16:54 | XMS_ITS | Encounter Summary ---
Author Organization [facility] Address [address] [place] [address] Care Team Providers Care Truck Hop Name Role Phone Emigdio Veronica MD Primary Care Provider + Izabella Snowden [facility] Unavailable [phone] Reason for Visit * Reason Onset Date Comments Medications Refill 07/26/2023 Encounter Details Date Type Department Care Team (Late st Contact Info) Description 07/26/2023 Refill [facility] Adult Primary Care - [place] 2 [place], [place] [phone] Emigdio Veronica MD [address] [place] [address] Medications Refill Social History Tobacco [...] 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 Daily Max: 15 mg 84 Tablet 08/02/2023 08/29/2023 documented in this encounter Miscellaneous Notes * Telephone Encounter - Karol Hoff RN - 2023 1012 EDT Please see pended for oxycodone first fill of this Tuesday, but start dates remains 08/02. Pharmaciescannot see any start dates only ordered dates and first fill dates. Placed start date in notes to pharmacy. * Telephone Encounter - Irasema Willis LPN - 07/26/2023 1504 EDT Patient calling regarding her oxycodone, states she is going out of town on Tuesday for 2 weeks and will need to turkey picker her script earlier than next week on the when it is written for. Wonderingif she can get it earlier before she leaves Tuesday night. documented in this encounter Plan of Treatment Upcoming Encounters Date Type Department Care Team (Late st Contact Info) Description 01/04/2025 13:00 EST Office Visit [facility] Ophthalmology - [address] [phone] Gagandeep Rome MD [address] [place] [address], [address] [place] [address] 02/11/2025 13:30 EDT Telemedicine [facility] Hematology & Oncology - [address] [phone] Dana Padilla MD [address] [place] [address], [facility] 2 [place] [address] documented as of this encounter Visit Diagnoses Not on filedocumented in this encounter Discontinued Medications Medication Sig Discontinue Reason Start Date End Da te oxyCODONE (ROXICODONE) 5 mg immediate release tablet Take 1 Tablet by mouth 3 times daily as needed for up to 28 days for Pain. Daily Max: 15 mg Reorder 08/02/2023 2023 documented as of this encounter Care Teams Truck Hop Relationship Specialty Start Date End Date Emigdio Veronica MD 2 [place] [phone] PCP - General Internal Medicine - Primary Care 05/22/20 02/21/24 Izabella Snowden, [facility] 1 [facility], 3rd [place] [address] Spooler 02/21/23 05/03/24 documented as of this encounter
--- OUTSIDE RECORDS SUMMARY | 2024-11-22 16:54 | XMS_ITS | Encounter Summary ---
Author Organization [facility] Address [address] [place] [address] Care Team Providers Care Sack Lifter Name Role Phone Emigdio Veronica MD Primary Care Provider + Izabella Burroughs [facility] None, Provider Primary Care Provider Gabriel Wei Primary Care Provider Mirna Guerrero Primary Care Provider + Reason for Visit * Reason Onset Date Comments Depression 08/22/2023 Encounter Details Date Type Department Care Team (Late st Contact Info) Description 08/22/2023 Telephone [facility] Adult Primary Care - [place] [address] [place] [address] Emigdio Veronica MD [address] [place] [address] Depression Social History Tobacco Use Types Packs/Day Years [...] 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 Answer Date of Assessment Author No 04/29/2023 11:26 EDT Franca Marquez, RN * Are you blind or do [...] as needed for Anxiety. 30 Tablet 08/22/2023 documented in this encounter Miscellaneous Notes * Telephone Encounter - Emigdio Veronica III, MD - 08/22/2023 1551 EDT Agree with OV for multiple concerns. Can try hydroxyzine for acute anxiety, would not support adding benzodiazepines to her regiment given her current use of opiates and renal disease. She has a longstanding history of hematuria for which she was previously seen by urology. She has ahistory of nephrolithiasis, but I do not believe she has had an extensive bladder evaluation for this issue. Her CT did not reveal any signs of bladder abnormalities. * Telephone Encounter - Pam Ivey RN - 08/22/[address] Veronica. He says that we can send in Hydroxyzine for Pt to try PRN. He will not send benzodiazepine. Hydroxyzine was pended by Dr Veronica. He says that if Pt is willing to try, triage can send. Otherwise, Pt should be seen by some provider this week for other symptoms. Phone call to Pt. Relayed Dr Veronica's message. Also let her know that hydroxyzine can cause drowsiness. Pt agrees to try hydroxyzine. Hydroxyzine sent to pharmacy. Scheuduled Pt for OV with Dr Ortez on 08/25/23 for flank pain hematuria. Will send message to Erika Burroughs to see if she can reach out to Pt again. * Telephone Encounter - Pam Ivey RN - 08/22/2023 1441 EDT Call transferred to triage. Pt is very tearful, reporting extreme anxiety and depression. Pt is tearful during phon call. She states I don't know what going on. I'm just a wreck; can't stop crying. Anxiety is awful, to the point where she doesn't feel like she can do or focus on anything else. Also feeling very depressed. Denies SI. She says that there has been a lot going on recently. She is taking effexor and nothing seems to work usually. She says that she does not currently take anything PRN for anxiety. She says that she used to take something PRN for a short time in the past when her anxiety was particularly bad, but she does not recall what it was. Not sleeping. Pt reports that she has been in a lot of pain lately and that is causing a lot of extra stress. She went to ED on 08/17/23 for left-sided flank pain hematuria (visible red blood in urine). Pt thought she might have kidney stone as she has a history, but the ED did not find any kidney stones. Urine culture negative for UTI. They advised Pt to follow up with PCP, as UA was abnormal. Pt did see urology about 2 years ago for a kidney stone. She has not called them since the ED told her that likely they wouldn't do anything since there were no stones that they could see. Pt says that these symptoms started about a week ago. She is still experiencing the left-flank pain now. Does not radiate anywhere else. Has not seen visible blood in urine in today. No urinary frequency/urgency. No dysuria. No fever. She has been very off balance. Had bad dizzy spells. Sometimes during her anxiety attacks, she has needed to use her oxygen. No OVs available today. Will plan to check in with Dr Veronica to see if he is able/willing to send in a PRN medication to help with her anxiety. Advised that we should schedule OV this week for f/u of flank pain/blood in urine. Pt says that she only wants to see Dr Veronica or Scottie Campuzano. However neither provider has any availability this week. She would us to check in with Dr Veronica to see what his suggestion is first. Discussed that if she develops fever or her pain becomes unbearable, she should return to UC or ED. Reviewed some breathing and focussing exercises to help with acute anxiety. * Telephone Encounter - Tiny Moss - 08/22/2023 1679 EDT Reason for Call: Depression Summary/Symptoms: Pt feels very depressed today. Pt is hyperventilating & very upset Onset and Duration: 1 day Previously seen at/discussed with this office for issue: N/A Does the patient have a computer, laptop or smart phone with high speed & video capability? N/A If so, would they be interested in doing a video visit via [facility]? N/A Appointment Offered? No Tiny Moss 08/22/2023 14:35 documented in this encounter Plan of Treatment Upcoming Encounters Date Type Department Care Team (Late st Contact Info) Description 01/04/2025 13:00 EST Office Visit [facility] Ophthalmology - [facility] [address] [place] [address] Gagandeep Rome MD [address] [facility], [address] [place] [address] 02/11/2025 13:30 EDT Telemedicine [facility] Hematology [facility] On[facility] - [facility] [address] [place], [place] [address] Dana Padilla MD [address] [facility], [facility], [address] [place] [address] documented as of this encounter Visit Diagnoses Not on filedocumented in this encounter Additional Health Concerns Infection Onset Date Last Indicated Resolved Time R/O COVID-19 09/07/2023 09/07/2023 09/07/2023 22:1 6 EDT documented as of this encounter Care Teams Sack Lifter Relationship Specialty Start Date End Date Emigdio Veronica MD [address] [place] [phone] PCP - General Internal Medicine - Primary Care 05/22/20 02/21/24 None, Provider PCP - General 02/24/24 03/18/24 Gabriel Gandara PA PCP - General 03/19/24 09/11/24 Mirna Guerrero PA [address] [place], [place] [id number] PCP - General 09/12/24 Izabella Burroughs, [employer] [address] [facility], 3rd [place] [phone] Mid Level Provider 02/21/23 05/03/24 documented as of this encounter
--- OUTSIDE RECORDS SUMMARY | 2024-11-22 16:54 | XMS_ITS | Encounter Summary ---
Author Organization [facility] Address [address] [place] [address] Care Team Providers Care Svp Of Digital Name Role Phone Emigdio Veronica MD Primary Care Provider + Izabella Snowden [facility] Unavailable [phone] Reason for Visit * Reason Onset Date Comments Medications Refill 08/29/2023 Encounter Details Date Type Department Care Team (Late st Contact Info) Description 08/29/2023 Refill [facility] Adult Primary Care - [place] [address] [place], [place] [id number] Emigdio Veronica MD [address] [place] [address] Medications Refill Social History Tobacco [...] 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 Date [employer]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 oxyCODONE (ROXICODONE) 5 mg immediate release tablet 84 Tablet 0 Sig: Take 1 Tablet by mouth 3 times daily as needed for up to 28 days for Pain. Daily Max: 15 mg [facility]/pharmacy #[id number] Confirmed Pharmacy? Yes Patient out of medication? No (1 left for tonight) Last Refill Date: 08.02.23 Refills left? (explain exceptions requiring early refill) No Recent Visits Date Type Provider Dept 08/25/23 Office Visit Ruth Ortez MD PhD [facility] Adult Prim Care 07/13/23 Office Visit Emigdio Veronica III, MD [facility] Adult Prim Care 06/29/23 Office Visit Scottie Campuzano PA-C [facility] Adult Prim Care 06/10/23 Office Visit Emigdio Veronica III, MD [facility] Adult Prim Care 05/26/23 Office Visit Scottie Campuzano PA-C [facility] [place] Adult Prim Care 05/05/23 Office Visit Emigdio Veronica III, MD [facility] [place] Adult Prim Care 04/26/23 Office Visit Scottie Campuzano PA-C [facility] [place] Adult Prim Care 03/15/23 Office Visit Emigdio Veronica III, MD [facility] Adult Prim Care 02/24/23 Office Visit Scottie Campuzano PA-C [facility] [place] Adult Prim Care 02/16/23 Office Visit Scottie Campuzano PA-C [facility] Adult Prim Care Showing recent visits within past 540 days with a meds authorizing provider and meeting all other requirements Future Appointments Date Type Provider Dept 09/21/23 Appointment Emigdio Veronica III, MD [facility] Adult Prim Care Showing future appointments within next 150 days with a meds authorizing provider and meeting all other requirements Future appointment: Already Scheduled Sally Jorge 08/29/2023 8:19 documented in this encounter Plan of Treatment Upcoming Encounters Date Type Department Care Team (Late st Contact Info) Description 01/04/2025 13:00 EST Office Visit [facility] Ophthalmology - [address] [id number] Gagandeep Rome MD [address] [place] [address], [facility] [address] [place] [phone] 02/11/2025 13:30 EDT Telemedicine [facility] Hematology & Oncology [address] [id number] Dana Padilla MD [address] [place] [address], [address] [place] [phone] documented as of this encounter Visit Diagnoses Not on filedocumented in this encounter Discontinued Medications Medication Sig Discontinue Reason Start Date End Da te oxyCODONE (ROXICODONE) 5 mg immediate release tablet Take 1 Tablet by mouth 3 times daily as needed for up to 28 days for Pain. Daily Max: 15 mg Reorder 08/02/2023 08/29/2023 documented as of this encounter Care Teams Svp Of Digital Relationship Specialty Start Date End Date Emigdio Veronica MD [address] [place] [phone] PCP - General Internal Medicine - Primary Care 05/22/20 02/21/24 Izabella Snowden, [facility] 1 [facility], [address] [place] [address] Airplane Designer 02/21/23 05/03/24 documented as of this encounter
--- OUTSIDE RECORDS SUMMARY | 2024-11-22 16:54 | XMS_ITS | Encounter Summary ---
Author Organization [facility] Address [address] [place] [address] Care Team Providers Care Dolly Driver Name Role Phone Emigdio Veronica MD Primary Care Provider + Izabella Snowden [facility] Unavailable [phone] Reason for Visit * Reason Comments Flank Pain Pt with L sided flan k pain for the last 3 days. Hx of kidney stones. See tcall. Arrives with EMS. Given 100mcg IV fentanyl and 4 mg IV zofran en route. 8/10 pain currently. 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 Not on file Not on file Not o n file documented as of this encounter Last Filed Vital Signs Vital Sign Reading Time Taken Comments Blood Pressure 113/84 08/17/20232126 EDT Pulse 84 08/17/20232126 EDT Temperature 36.1 ??C (97 ??F) 08/17/2023 1554 EDT Respiratory Rate 22 08/17/20232126 EDT Oxygen Saturation 99% 08/17/20232126 EDT Inhaled Oxygen Concentration - - Weight 99.8 kg (220 lb) 08/17/2023 1554 EDT Height - - Body Mass Index 38.98 08/15/2023 1354 EDT documented in this encounter Functional Status [...] Date of Assessment Author No 04/29/2023 11:26 rFanca Billings RN * Do you have difficulty dressing or bathing? (5 years old or older) Answer Date of Assessment Author No 04/29/2023 11:26 EDFranca Meier RN * Because of a physical, mental, [...] Franca Billings RN documented in this encounter Discharge Instructions * Discharge Instructions* Laurent Solorzano MD - 08/17/2023 21:17 EDT You were seen in the emergency department for flank pain. Your CT scan which did not show any emergent process. You should follow-up with your primary care doctor regarding some chronic findings which are unchanged on today's scan. Your testing did show blood in your urine which will be important for you to follow- up with your primary care doctor about as well. Return to the emergency department for uncontrolled pain, fevers or any other concerns documented in this encounter Medications at Time [...] harmless in excess). 1 Each 1 11/11/2021 OXYGEN-AIR DELIVERY SYSTEMS MISCIndications:2 L @ night via nC 2 L by misc (non-drug; combo route) route at bedtime. spironolactone (ALDACTONE) 100 mg tablet Take 0.5 Tablets by mouth daily. 06/12/2023 doxepin (SINEQUAN) 10 mg capsule Take 1-2 Capsules by mouth at bedtime. 60 Capsule 2 06/29/2023 3 enoxaparin (LOVENOX) 60 mg/0.6 mL injection Inject [...] MOUTH THREE TIMES A DAY 270 Capsule 07/05/2023 3 levothyroxine (SYNTHROID) 25 mcg tablet TAKE 1 TABLET BY MOUTH EVERY DAY 90 Tablet 1 04/26/2023 4 ondansetron (ZOFRAN) 4 mg tablet TAKE 1 TABLET BY MOUTH EVERY 8 HOURS NEEDED FOR NAUSEA 90 Tablet 07/31/2023 3 oxyCODONE (ROXICODONE) 5 mg immediate release tablet Take 1 Tablet by mouth 3 times daily as needed for up to 28 days for Pain. Daily Max: 15 mg 84 Tablet 08/02/2023 3 sucralfate (CARAFATE) 1 gram tablet TAKE 1 TABLET BY MOUTH FOUR TIMES A DAY 120 Tablet 3 05/10/2022 4 venlafaxine (EFFEXOR-XR) 150 mg XR capsule Take 1 Capsule by mouth daily. (total daily dose of this medication is 150 mg). 90 Capsule 3 02/24/2023 4 documented as of this encounter Discharge Disposition Disposition Code Departure Means Destination Comment s Home or Self Usp documented in this encounter ED Notes * Laurent Solorzano MD - 08/17/2023 1838 EDT Emergency Department Visit This documentation is recorded by Hiren Crews acting as Scribe under the direction and presence of Laurent Solorzano MD. Laurent Solorzano MD: I personally performed the services recorded by the scribe in my presence. I confirm the scribe's documentation has been reviewed by me to accurately and completely recordmy work, treatment, procedures, and medical decision making. Medical Decision Making Tara Ynu is a Susanricardo Yun is a 63 y.o. 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 The patient also reports hematuria, lightheadedness, nausea, and vomiting. On exam, the patient is minimally tender in the left abdomen and has left CVA tenderness. Oral mucosa are moist. She appears well but uncomfortable. Multiple etiologies were considered for this patient's symptoms including kidney stone, dehydration, diverticulitis, pyelonephritis, hematuria, CKD,or liver disease. CT Abdomen/Pelvis found no acute abnormalities. Patient had labs that were reviewed independently by myself, significant for WBC 3.70, creatinine 1.31, and urine with 3+ blood. 2111: Discussed reassuring labs and CT imaging with the patient at [facility]. Discussed plan to order urine cultures. Patient reports that her pain has improved. Explained that the patient may have had passed a kidney stone. Advised her to follow up with her PCP. Return precautions have been discussed. At this time, the patient was stable for discharge home. Laboratory data was reviewed. Medical Decision Making Flank pain: acute illness or injury Gross hematuria: acute illness or injury Amount and/or Complexity of Data Reviewed Labs: ordered. Radiology: ordered. Risk Prescription drug management. Final diagnoses: Flank pain Gross hematuria Disposition: Discharged Chief complaint: Flank pain HPI Tara Yun is a 63 y.o. 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 The patient also reports hematuria, lightheadedness, nausea, and vomiting. She states that shehas been unable to tolerate PO intake. The patient reports that she was found to have a low-grade fever en route to the ED. She denies diarrhea or dysuria. The patient states that she did not take any pain medication before calling EMS, though she does have oxycodone at home that she ordinarily takes as needed for pain. She received 4 mg Zofran and 100 mcg fentanyl from EMS prior to arrival. The patient states that she has no cardiac history. She reports that she has required operative intervention for prior kidney stones. History was provided by: Patient, EMS, and medical record Records reviewed include: Patient's pertinent PMH, FH, SH were reviewed and edited as necessary. Nursing notes reviewed. A medical screening exam was performed. Physical Exam BP 113/84 (BP Cuff Location: Left arm, BP Patient Position: Sitting) Pulse 84 Temp 36.1 ??C (97??F) (Temporal) Resp 22 Wt 99.8 kg (220 lb) SpO2 99% BMI 38.98 kg/m?? Physical Exam Nursing notes and vital signs were reviewed. Constitutional: Appears well but uncomfortable in no acute distress Eyes: Pupils equal and reactive to light, no scleral icterus Mouth: Moist oral mucosa without apparent lesions Neck: Full ROM, no cervical LAD Heart: RRR without MRG Lungs: Clear to auscultation Abdomen: Soft, minimally tender on the left side, nondistended. Left CVA tenderness. Skin: No overt rashes on exposed skin Extremities: Moving spontaneously, warm and well perfused. Neuro: Grossly neurologically intact with normal speech Psych: No agitation or overt thought disorder Procedures Procedures * Darshan Palacio - 08/17/2023 1650 EDT Triage; SMR ETA 1537 MANOJ OLMSTEAD 60 9/10 L SIDE FLANK PN, N/V, BLOOD IN URINE HX KIDNEY STONE+ FENTANYL IVF HR 110 BP 103/66 RR 20 TEMP 99.7 documented in this encounter Plan of Treatment Upcoming Encounters Date Type Department Care Team (Late st Contact Info) Description 01/04/2025 13:00 EST Office Visit [facility] Ophthalmology - [address] [address] Gagandeep Rome MD [address] [place] [address], [facility] [address] [place] [address] 02/11/2025 13:30 EDT Telemedicine [facility] Hematology & Oncology - [address] [address] Dana Padilla MD [address] [place] [address], [facility] [address] [place] [address] Pending Results Name Type Priority Associated Diagnoses Date /Time POCT URINE CLINITEK (DIPSTICK) - DOES NOT REFLEX Lab STAT 16:24 EDT Scheduled Orders Name Type Priority Associated Diagnoses Orde r Schedule POCT URINE CLINITEK (DIPSTICK) - DOES NOT REFLEX Lab STAT One Time STAT fo r 1 Occurrences starting 08/17/2023 until 08/17/2023 POCT URINE DIPSTICK, CLINITEK Point of Care Testing STAT Once for 1 Occurrences starting 08/17/2023 until 08/17/2023 documented as of this encounter Procedures Procedure Name Priority Date/Time Associated Diagnosis Comments CT ABDOMEN PELVIS WO CONTRAST STAT 08/17/2023 18:41 EDT URINE CHEMICAL (DIP) & SEDIMENT (MICRO) WITH REFLEX TO CULTURE Routine 08/17/2023 16:24 EDT POCT CSN BARCODE URINE DIPSTICK STAT 08/17/2023 16:24 EDT BACTERIAL CULTURE, URINE Today 08/17/2023 16:24 EDT HOLD SST STAT 08/17/2023 16:15 EDT HOLD LAVENDER TOP STAT 08/17/2023 16: 15 EDT HOLD GREEN TOP STAT 08/17/2023 16:15 EDT HOLD BLUE TOP STAT 08/17/2023 16:15 EDT COMPLETE BLOOD COUNT AND DIFFERENTIAL STAT Add-on 08/17/2023 16:15 EDT COMPREHENSIVE METABOLIC PANEL (CMP) STAT Add-on 08/17/2023 16:15 EDT documented in this encounter Results * CT ABDOMEN PELVIS WO CONTRAST (08/17/2023 18:41 EDT) Anatomical Region Laterality Modality Body, Abdomen, Pelvis, Abdomen and Pelvis Computed Tomography 08/18/2023 8:41 EDT Impressions 08/18/2023 8:41 EDT 1. ??No acute abnormality in the abdomen/pelvis. Specifically, no evidence of left ureteral calculus. 2. ??Splenomegaly with chronic infarct, not appreciably changed. 3. ??Cirrhotic configuration of the liver. 4. ??Dilation of the portal/splenic vein reflecting chronic thrombus, limited assessment for interval change given noncontrast technique. 5. ??Colonic diverticulosis without evidence of diverticulitis. 6. ??Stable left adrenal nodule, likely left adrenal adenoma. 7. ??Atherosclerosis. I have personally reviewed the images and the above interpretation and agree with the findings. [id number] Narrative 08/18/2023 8:[address] ABDOMEN PELVIS WO CONTRAST ??08/17/2023 6:35 PM Signs and Symptoms/Comments: left flank pain, cirrhosis, hx of kidney stones requiring intervention; Flank pain, kidney stone suspected; left flank pain, cirrhosis, hx of kidney stones requiring intervention; left flank pain, cirrhosis, hx of kidney stones requiring intervention; Technique: CT of the abdomen and pelvis was performed without intravenous contrast. This CT used either dose modulation and/or iterative reconstruction techniques to lower radiation dose. Comparison: April 29, 2023 CT abdomen/pelvis., March 13, [address] angiography abdomen pelvis February 14, 2023. CT abdomen pelvis December 14, 2022. Findings: Lower chest: No significant abnormality. Prominent node noted in the cardiophrenic fat, unchanged from priors through at least 2020 Liver: There is a nodular hepatic contour. No contour deforming hepatic lesion is identified. Ill-defined hypodensity along the hepatic dome (axial image 20) likely corresponds to an intrahepatic portosystemic shunt as seen on comparison CT. Expansion of the portal vein and some internal calcification, compatible with known chronic thrombosis, assessment for interval change is limited on this noncontrast study. Gallbladder: Absent Bile ducts: Stable caliber of the biliary tree. Spleen: Splenomegaly with embolization coils and sequela of infarct in the anterior/inferior spleen, grossly unchanged compared to CT from 04/29/2023. Minimal stranding along the inferior margin is also unchanged. Pancreas: No contour deforming pancreatic lesion. No peripancreatic fluid or fat stranding. Adrenal glands: Left adrenal nodule is unchanged dating to at least 2020, most likely benign adrenal adenoma. Kidneys, ureters, bladder: There is no contour deforming renal lesion. The focal mildly dilated segment of the right ureter which then normalizes in caliber. No apparent obstructive etiology at this location, favored to reflect peristalsis, particularly given pain on contralateral side. Notably this ureter looked similar on the December 14, 2022 comparison, and normalized on the intervening scans. The urinary bladder is grossly normal. Reproductive organs: Uterus is surgically absent. No adnexal mass. Bowel: There is colonic diverticulosis without evidence of diverticulitis. Peritoneal cavity: Calcifications in the right lower abdomen are unchanged compared to prior studies, most likely benign. No free air or free fluid is present in the abdomen or pelvis. Lymph nodes: No enlarged lymph nodes in the abdomen or pelvis. Vascular: Abdominal vasculature is unenhanced. Findings of chronic elizabeth splenic thrombosis as above, limited assessment on noncontrast CT. Embolization coils in the vicinity of the spleen. Abdominal aorta demonstrates atherosclerosis without aneurysm. Abdominal wall: Surgical mesh in the anterior right upper abdomen as well as numerous surgical skin cortez in the right anterior lower abdomen are again noted. Numerous soft tissue density nodules are present in the anterior abdominal wall, likely related to subcutaneous injection. Dystrophic calcifications are present in the gluteal subcutaneous fat, likely sequela of fat necrosis. Musculoskeletal: There is no suspicious osseous lesion or acute fracture. Degenerative changes in the lower thoracic/lumbar spine and joints of the bony pelvis. Watch Repair Person: No additional finding. Procedure Note Prasanna Rey MD - 08/18/2023 CT ABDOMEN PELVIS WO CONTRAST 08/17/2023 6:35 PM Signs and Symptoms/Comments: left flank pain, cirrhosis, hx of kidneystones requiring intervention; Flank pain, kidney stone suspected; leftflank pain, cirrhosis, hx of kidney stones requiring intervention; leftflank pain, cirrhosis, hx of kidney stones requiring intervention; Technique: CT of the abdomen and pelvis was performed without intravenouscontrast. This CT used either dose modulation and/or iterative reconstructiontechniques to lower radiation dose. Comparison: April 29, 2023 CT abdomen/pelvis., March 13, [address] angiography abdomen pelvis February 14, 2023. CT abdomen pelvisJan2022. Findings: Lower chest: No significant abnormality. Prominent node noted in thecardiophrenic fat, unchanged from priors through at least 2020 Liver: There is a nodular hepatic contour. No contour deforming hepaticlesion is identified. Ill-defined hypodensity along the hepatic dome(axial image 20) likely corresponds to an intrahepatic portosystemic shuntas seen on comparison CT. Expansion of the portal vein and some internalcalcification, compatible with known chronic thrombosis, assessment forinterval change is limited on this noncontrast study. Gallbladder: Absent Bile ducts: Stable caliber of the biliary tree. Spleen: Splenomegaly with embolization coils and sequela of infarct in theanterior/inferior spleen, grossly unchanged compared to CT from 04/29/2023.Minimal stranding along the inferior margin is also unchanged. Pancreas: No contour deforming pancreatic lesion. No peripancreatic fluidor fat stranding. Adrenal glands: Left adrenal nodule is unchanged dating to at least 2020,most likely benign adrenal adenoma. Kidneys, ureters, bladder: There is no contour deforming renal lesion. Thefocal mildly dilated segment of the right ureter which then normalizes incaliber. No apparent obstructive etiology at this location, favored toreflect peristalsis, particularly given pain on contralateral side.Notably this ureter looked similar on the December 14, 2022 comparison, andnormalized on the intervening scans. The urinary bladder is grosslynormal. Reproductive organs: Uterus is surgically absent. No adnexal mass. Bowel: There is colonic diverticulosis without evidence ofdiverticulitis. Peritoneal cavity: Calcifications in the right lower abdomen are unchangedcompared to prior studies, most likely benign. No free air or free fluidis present in the abdomen or pelvis. Lymph nodes: No enlarged lymph nodes in the abdomen or pelvis. Vascular: Abdominal vasculature is unenhanced. Findings of chronic portasplenic thrombosis as above, limited assessment on noncontrast CT.Embolization coils in the vicinity of the spleen. Abdominal aortademonstrates atherosclerosis without aneurysm. Abdominal wall: Surgical mesh in the anterior right upper abdomen as wellas numerous surgical skin cortez in the right anterior lower abdomen areagain noted. Numerous soft tissue density nodules are present in theanterior abdominal wall, likely related to subcutaneous injection.Dystrophic calcifications are present in the gluteal subcutaneous fat,likely sequela of fat necrosis. Musculoskeletal: There is no suspicious osseous lesion or acute fracture.Degenerative changes in the lower thoracic/lumbar spine and joints of thebony pelvis. Watch Repair Person: No additional finding. IMPRESSION 1. No acute abnormality in the abdomen/pelvis. Specifically, no evidenceof left ureteral calculus. 2. Splenomegaly with chronic infarct, not appreciably changed. 3. Cirrhotic configuration of the liver. 4. Dilation of the portal/splenic vein reflecting chronic thrombus,limited assessment for interval change given noncontrast technique. 5. Colonic diverticulosis without evidence of diverticulitis. 6. Stable left adrenal nodule, likely left adrenal adenoma. 7. Atherosclerosis. I have personally reviewed the images and the above interpretation andagree with the findings. [id number] us Laurent Solorzano MD IMG CT ORDERABLES Final Result * BACTERIAL CULTURE, URINE (08/17/2023 16:24 EDT) Organism ID Less than 10,000 CFU/ml Usual urogenital tiffanie 08/19/2023 10:45 EDT [facility] Urine URINE SPECIMEN OBTAINED BY CLEAN CATCH PROCEDURE / Unknown Urine Collect / Unknown 08/17/2023 16:24 EDT 08/17/2023 16:48 EDT Jayden Brown MD MICROBIOLOGY - GENERAL ORDERA BLES Final Result [facility] [address] [place] [id number] * (ABNORMAL) URINE CHEMICAL (DIP) & SEDIMENT (MICRO) WITH REFLEX TO CULTURE (08/17/2023 16:24 EDT) Color UA Yellow Colorless, Yellow 08/17/2023 16:48 EDT [facility] Clarity UA Clear Clear 08/17/2023 16:48 EDT [facility] Glucose UA Negative Negative mg/dL 08/17/2023 16:48 EDT [facility] Bilirubin UA Negative Negative 08/17/2023 16:48 EDT [facility] Ketones UA Negative Negative 08/17/2023 16:48 EDT [facility] Specific [place], Urine 1.015 1.001 - 1.035 08/17/2023 16:48 EDT [facility] Blood UA 3+(A) Negative 08/17/2023 16:48 [facility] Urobilinogen UA 4(A) Normal mg/dL 08/17/2023 16:48 [facility] Nitrite UA Negative Negative 08/17/2023 16:48 [facility] Leukocyte Esterase UA Negative Negative 08/17/2023 16:48 [facility] Protein UA 1+(A) Negative mg/dL 08/17/2023 16:48 T [facility] pH, UA 7.0 4.6 - 8.0 08/17/2023 16:48 [facility] Urine RBC Count, Auto >50(A) 0 - 2 Cells/HPF 08/17/2023 16:48 [facility] Urine WBC Count, Auto 4 - 10(A) 0 - 3 Cells/HPF 08/17/2023 16:48 [facility] Urine Squamous Count, Auto Moderate(A) None Seen Cells/HPF 08/17/2023 16:48 [facility] Urine Hyaline Cast Count, Auto <=10 <=10 Casts/LPF 08/17/2023 16:48 [facility] Urine Bacteria Count, Auto None Seen None Seen Bacteria/HP F 08/17/2023 16:48 [facility] Urine URINE SPECIMEN OBTAINED BY CLEAN CATCH PROCEDURE / Unknown Urine Collect / Unknown 08/17/2023 16:24 EDT 08/17/2023 16:37 EDT Narrative [facility] - 08/17/2023 16:48 EDT A Urine Culture test has been reflexively ordered based on result criteria from the Urine Sediment Analysis. Urine Sediment Analysis results are unreliable on urines that are unrefrigerated for >2 hrs or refrigerated >8 hrs. us Jayden Brown MD URINALYSIS ORDERABLES Final R esult [facility] [address] [place] [address] * POCT CSN BARCODE URINE DIPSTICK (08/17/2023 16:24 EDT) Urine URINE SPECIMEN OBTAINED BY CLEAN CATCH PROCEDURE / Unknown Urine Collect / Unknown 08/17/2023 16:24 EDT 08/17/2023 16:24 EDT Fausto Carter MD LAB INFO SERVICE AND SUPPORT & PHONE RESULT Final Result [facility] [address] [place] [address] * (ABNORMAL) COMPLETE BLOOD COUNT AND DIFFERENTIAL (08/17/2023 16:15 EDT) WBC 3.70(L) 4.00 - 12.40 K/cmm 08/17/2023 18:06 [facility] RBC 3.97 3.86 - 5.04 M/cmm 08/17/2023 18:06 [facility] Hemoglobin 12.2 11.6 - 15.2 g/dL 08/17/2023 18:06 [facility] HCT 35.6 34.9 - 44.4 % 08/17/2023 18:06 [facility] MCV 90 81 - 98 fL 08/17/2023 18:06 [facility] MCH 30.7 26.7 - 33.3 pg 08/17/2023 18:06 [facility] MCHC 34.3 32.1 - 35.9 g/dL 08/17/2023 18:06 [facility] RDW-CV 14.0 <14.7 % 08/17/2023 18:06 [facility] RDW-SD 45.9 <50.4 fl 08/17/2023 18:06 [facility] PLT 103(L) 141 - 377 K/cmm 08/17/2023 18:06 [facility] MPV 10.1 9.5 - 12.7 fL 08/17/2023 18:06 [facility] % Neutrophils 71.8 % 08/17/2023 18:06 [facility] % Lymphocytes 14.9 % 08/17/2023 18:06 [facility] % Monocytes 10.3 % 08/17/2023 18:06 [facility] % Eosinophils 1.1 % 08/17/2023 18:06 [facility] % Basophils 1.1 % 08/17/2023 18:06 [facility] % Immature Grans 0.8 % 08/17/20 18:06 [facility] Absolute Neutrophils 2.66 2.20 - 8.85 K/cmm 08/17/2023 18:06 [facility] Absolute Lymphocytes 0.55(L) 1.09 - 3.30 K/cmm 08/17/2023 18:06 [facility] Absolute Monocytes 0.38 0.10 - 0.80 K/cmm 08/17/2023 18:06 [facility] Absolute Eosinophils 0.04 0.03 - 0.61 K/cmm 08/17/2023 18:06 [facility] ABS Basophils 0.04 0.01 - 0.11 K/cmm 08/17/2023 18:06 [facility] Absolute Immature Grans 0.03 0.00 - 0.06 K/cmm 08/17/2023 18:06 [facility] Type of Differential: Auto 08/17/2023 18:06 [facility] Blood VENOUS BLOOD / Unknown Venipuncture / Unknown 08/17/2023 16:15 EDT 08/17/2023 16:21 EDT us Laurent Solorzano MD PACKAGES & DNA PROBE OR DERABLES Final Result [facility] [address] [place] [address] * (ABNORMAL) COMPREHENSIVE METABOLIC PANEL (CMP) (08/17/2023 16:15 EDT) Sodium 136 136 - 145 mmol/L 08/17/2023 17:28 [facility] Potassium 4.4 3.5 - 5.0 mmol/L 08/17/2023 17:28 [facility] Chloride 99 96 - 110 mmol/L 08/17/2023 17:28 [facility] CO2 Total 23 22 - 32 mmol/L 08/17/2023 17:28 [facility] [facility] Glucose 84 70 - 99 mg/dl 08/17/2023 17:28 [facility] BUN 23 10 - 26 mg/dL 08/17/2023 17:28 [facility] Creatinine 1.31(H) 0.52 - 1.04 mg/dL 08/17/2023 17:28 [facility] eGFR 46(L) >60 mL/min/1.7 3m2 08/17/2023 17:28 [facility] Total Protein 7.3 6.3 - 8.2 g/dL 08/17/2023 17:28 [facility] Albumin 4.3 3.4 - 4.9 g/dL 08/17/2023 17:28 [facility] Alkaline Phosphatase 126 38 - 126 U/L 08/17/2023 17:28 [facility] AST 27 15 - 46 U/L 08/17/2023 17:28 [facility] ALT 17 <35 U/L 08/17/2023 17:28 [facility] Bilirubin, Total 0.7 <1.4 mg/dL 08/17/20 17:28 [facility] Calcium 9.0 8.5 - 10.5 mg/dL 08/17/2023 17:28 [facility] Albumin/Globulin Ratio 1.4 1.0 - 2.5 g/dL 08/17/2023 17:28 [facility] Anion Gap 14 5 - 14 mmol/L 08/17/2023 17:28 [facility] Blood VENOUS BLOOD / Unknown Venipuncture / Unknown 08/17/2023 16:15 EDT 08/17/2023 16:21 EDT us Laurent Solorzano MD CHEMISTRY & BLOOD GAS O RDERABLES Final Result [facility] [address] [place] [address] * HOLD BLUE TOP (08/17/2023 16:15 EDT) Hold Hold 08/17/2023 17:31 EDT [facility] Blood VENOUS BLOOD / Unknown Venipuncture / Unknown 08/17/2023 16:15 EDT 08/17/2023 16:23 EDT us Fausto Carter MD LAB INFO SERVICE AND SUPPORT & PHONE RESULT Final Result Performing Organization Address City/[facility]/ZIP Co de Phone Number [facility] [address] [place] [id number] * HOLD GREEN TOP (08/17/2023 16:15 EDT) Hold Hold 08/17/2023 17:31 EDT [facility] Blood VENOUS BLOOD / Unknown Venipuncture / Unknown 08/17/2023 16:15 EDT 08/17/2023 16:21 EDT us Fausto Carter MD LAB INFO SERVICE AND SUPPORT & PHONE RESULT Final Result [facility] [address] [place] [id number] * HOLD SST (08/17/2023 16:15 EDT) Hold Hold 08/17/2023 17:31 EDT [facility] Blood VENOUS BLOOD / Unknown Venipuncture / Unknown 08/17/2023 16:15 EDT 08/17/2023 16:21 EDT us Fausto Carter MD LAB INFO SERVICE AND SUPPORT & PHONE RESULT Final Result [facility] [address] [place] [address] * HOLD LAVENDER TOP (08/17/2023 16:15 EDT) Hold Hold 08/17/2023 17:31 EDT [facility] Blood VENOUS BLOOD / Unknown Venipuncture / Unknown 08/17/2023 16:15 EDT 08/17/2023 16:21 EDT Fausto Carter MD LAB INFO SERVICE AND SUPPORT & PHONE RESULT Final Result [facility] [address] [place] [address] documented in this encounter Visit Diagnoses Diagnosis Flank pain- Primary Abdominal pain, unspecified site Gross hematuria documented in this encounter Administered Medications Inactive Administered Medications - up to 3 most recent administrations Medication Order MAR Action Action Date Dose Rate Site lactated ringers BOLUS 500 mL 500 mL, intravenous, NOW X1, 1 dose, On Tue08/17/23 at 1730, STAT New Bag 08/17/2023 17:37 EDT 500 mL ondansetron (PF) (ZOFRAN) injection 4 mg 4 mg, intravenous, NOW X1, 1 dose, On Tue08/17/23 at 1730, STAT Given 08/17/2023 17:30 EDT 4 mg oxyCODONE (ROXICODONE) immediate release tablet 10 mg 10 mg, oral, NOW X1, 1 dose, On Tue08/17/23 at 1730, STAT Given 08/17/2023 17:31 EDT 10 mg documented in this encounter Active and Recently Administered Medications Times are shown in EDT. Scheduled Medication Order 08/15/2023 08/16/2023 08/17/2023 lactated ringers BOLUS 500 mL (COMPLETED) 500 mL, intravenous, NOW X1, 1 dose, On Tue08/17/23 at 1730, STAT 1737 (New Bag - Prov ider: Pinky Zimmer, KENN)1853 (IV Stopped - Provider: Pinky Zimmer, KENN) ondansetron (PF) (ZOFRAN) injection 4 mg (COMPLETED) 4 mg, intravenous, NOW X1, 1 dose, On Tue08/17/23 at 1730, STAT 1730 (Given - Provid er: Pinky Zimmer RN) oxyCODONE (ROXICODONE) immediate release tablet 10 mg (COMPLETED) 10 mg, oral, NOW X1, 1 dose, On Tue08/17/23 at 1730, STAT 1731 (Given - Provid er: Pinky Zimmer RN) documented in this encounter Care Teams Dolly Driver Relationship Specialty Start Date End Date Emigdio Veronica MD [address] [place] [address] PCP - General Internal Medicine - Primary Care 05/22/20 02/21/24 Izabella Snowden, [facility] 1 [facility], [facility], 3rd [place] [phone] Stubber 02/21/23 05/03/24 documented as of this encounter
--- OUTSIDE RECORDS SUMMARY | 2024-11-22 16:54 | XMS_ITS | Encounter Summary ---
Author Organization [facility] Address [address] [place] [address] Care Team Providers Care Block Hand Name Role Phone Emigdio Veronica MD Primary Care Provider + Izabella Snowden 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 Not on file Not [...] Info) Description 01/04/2025 13:00 EST Office Visit [facility] Ophthalmology - [address] [phone] Gagandeep Rome MD [address] [place] [address], [facility] 5 [place] [phone] 02/11/2025 13:30 EDT Telemedicine [facility] Hematology & Oncology [address] [phone] Dana Padilla MD [address] [place] [address], [facility] 2 [place] [phone] documented as of this encounter Visit Diagnoses Not on filedocumented in this encounter Care Teams Block Hand Relationship Specialty Start Date End Date Emigdio Veronica MD [address] [place] [phone] PCP - General Internal Medicine - Primary Care 05/22/20 02/21/24 Izabella Snowden, [facility] 1 [facility], 3rd [place] [address] Glass Smoother 02/21/23 05/03/24 documented as of this encounter
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
--- OUTSIDE RECORDS SUMMARY | 2024-11-22 16:54 | XMS_ITS | Encounter Summary ---
Author Organization [facility] Address [address] [place] [address] Care Team Providers Care Stopper Maker Name Role Phone Emigdio Veronica MD Primary Care Provider + Izabella Snowden [facility] Unavailable [phone] Reason for Visit * Reason Onset Date Comments Results 06/30/2023 Re: Platelet cou nts Encounter Details Date Type Department Care Team (Late st Contact Info) Description 06/30/2023 Telephone [facility] - [place] [address] [place] [address] Merline Campuzano PA-C [address] [place] [address] Results (Re: Platelet counts ) Social History Tobacco Use Types Packs/Day [...] 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 Has been helping her sleep for last 2 nights Patient expressed understanding with no barriers No additional questions or concerns to be addressed at this time. HEIKE ROSADO RN 07/01/2023 13:33 * Telephone Encounter - Cynthia Huang - 07/01/2023 1322 EDT Pt returning call. * Telephone Encounter - Sharon Joseph RN - 07/01/2023 0909 EDT Lm 07/01/2023 * Telephone Encounter - Deidra Lima RN - 06/30/2023 1238 EDT lmtcb * Telephone Encounter - Merline Campuzano PA-C - 06/30/2023 0595 EDT Please call Tara, Let her know that her blood test results look really good overall. Her platelet counts are still atabout 90,000, which is good. The bruises on her body are not caused by low platelets. I expect that the bruising will continue to gradually improve. I am not concerned that it is going to cause any serious health problems for her, rather, it is just a frustrating and uncomfortable problem--- the bruising is nothing to worry about at this point. Her potassium level is a bit low. Please confirm that she is in fact taking the spironolactone daily. Also, ask if she is consuming any fruits or vegetables that will help maintain her potassium level. I placed an order to recheck her potassium in 1 to 2 weeks. That order is for the blood to be drawnat the lab. Merline Rosas documented in this encounter Plan of Treatment Upcoming Encounters Date Type Department Care Team (Late st Contact Info) Description 01/04/2025 13:00 EST Office Visit [facility] Ophthalmology - [address] [phone] Gagandeep Rome MD [address] [place] [address], [facility] 5 [place] [phone] 02/11/2025 13:[address] [facility] Hematology & Oncology - [address] [phone] Dana Padilla MD [address] [place] [address], [facility] 2 [place] [address] documented as of this encounter Visit Diagnoses Diagnosis Hypokalemia- Primary Hypopotassemia documented in this encounter Care Teams Stopper Maker Relationship Specialty Start Date End Date Emigdio Veronica MD [address] [place] [phone] PCP - General Internal Medicine - Primary Care 05/22/20 02/21/24 Izabella Snowden, [facility] 1 [facility], 3rd [place] [address] Low Altitude Air Defense Gunner 02/21/23 05/03/24 documented as of this encounter
--- OUTSIDE RECORDS SUMMARY | 2024-11-22 16:54 | XMS_ITS | Encounter Summary ---
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 (5 years old or older) Answer Entry Date Author No 04/29/2023 11:26 EDT Franca Marquez RN documented in this encounter Progress Notes * Izabella Snowden LICSW - 08/05/2023 1152 EDT [facility] Environmental Consultant Care Coordination Environmental Consultant phone outreach to patient for wellness check. No answer-CM left Voice mail for patient. PLAN: CM left VM for patient. DARNELL MCCORMICK 08/05/2023 11:53 documented in this encounter Plan of Treatment Upcoming Encounters Date Type Department Care Team (Late st Contact Info) Description 01/04/2025 13:00 EST Office Visit [facility] Ophthalmology - [address] [phone] Gagandeep Rome MD [address] [place] [address], [facility] 5 [place] [phone] 02/11/2025 13:30 EDT Telemedicine [facility] Hematology & Oncology [address] [address] Dana Padilla MD [address] [place] [address], Level 2 [place] [phone] documented as of this encounter Visit Diagnoses Not on filedocumented in this encounter Care Teams Key Attendant Relationship Specialty Start Date End Date Emigdio Veronica MD 2 [place] [address] PCP - General Internal Medicine - Primary Care 05/22/20 02/21/24 Izabella Snowden, [facility] 1 [facility], 3rd [place] [address] Environmental Consultant 02/21/23 05/03/24 documented as of this encounter
--- OUTSIDE RECORDS SUMMARY | 2024-11-22 16:54 | XMS_ITS | Encounter Summary ---
Author Organization [facility] Address [address] [place] [address] Care Team Providers Care Information Systems Operator Name Role Phone Emigdio Veronica MD Primary Care Provider + Izabella Snowden [facility] Unavailable [phone] Reason for Visit * Reason Onset Date Comments Post-ED Follow Up 08/18/2023 care and jesús rn call Encounter Details Date Type Department Care Team (Late st Contact Info) Description 08/18/2023 Telephone [facility] Adult Primary Care - [place] [address] [place] [address] Emigdio Veronica MD 2 [place] [address] Post-ED Follow Up (care and concern call) Social History Tobacco Use Types Packs/Day Years [...] 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 * Telephone Encounter - Ashley Weems - 08/18/2023 1601 EDT Called to offer pt an appt w pcp on 08/22/23 and she can't make it because she doesn't have access to the car ( her roommates have appts too and they need the car at that time ) * Telephone Encounter - Ashley Weems - 08/18/2023 1456 EDT We see you were in the Emergency Department for FLANK PAIN on 08/17/23. How are you feeling/symptoms improving? Yes, the bleeding in urine let up but pt still has a flank pain that she rates as being an 8 on the pain scale Do you have any questions? ED recommended follow up with pcp; per pt they didn't see any stones on the imaging they've done Can we schedule a follow up visit? Yes; pt can't do a video visit; fwd to RNs for advice documented in this encounter Plan of Treatment Upcoming Encounters Date Type Department Care Team (Late st Contact Info) Description 01/04/2025 13:00 EST Office Visit [facility] Ophthalmology - [address] [phone] Gagandeep Rome MD [address] [place] [address] 5 [place] [phone] 02/11/2025 13:30 EDT Telemedicine [facility] Hematology & Oncology - [address] [phone] Dana Padilla MD [address] [place] [address], [facility] 2 [place] [address] documented as of this encounter Visit Diagnoses Not on filedocumented in this encounter Care Teams Information Systems Operator Relationship Specialty Start Date End Date Emigdio Veronica MD 2 [place] [address] PCP - General Internal Medicine - Primary Care 05/22/20 02/21/24 Izabella Snowden, [facility] 1 [facility], 3rd [place] [address] Pan Devulcanizer 02/21/23 05/03/24 documented as of this encounter
--- OUTSIDE RECORDS SUMMARY | 2024-11-22 16:54 | XMS_ITS | Encounter Summary ---
Author Organization [facility] Address [address] [place] [address] Care Team Providers Care Web Press Roll Tender Name Role Phone Emigdio Veronica MD Primary Care Provider + Izabella Snowden [facility] [phone] Reason for Visit * Reason Onset Date Comments Appointment Related 08/17/2023 Encounter Details Date Type Department Care Team (Late st Contact Info) Description 08/17/2023 Telephone [facility] Adult Primary Care - [place] [address] [place] [address] Emigdio Veronica MD [address] [place] [address] Appointment Related Social History Tobacco [...] 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 file Not on file [...] encounter Miscellaneous Notes * Telephone Encounter - Maria C Weemsela - 08/17/2023 0843 EDT Left message for pt to call us back and reschedule appt for today with Cecille Sauer due to pcp call out documented in this encounter Plan of Treatment Upcoming Encounters Date Type Department Care Team (Late st Contact Info) Description 01/04/2025 13:00 EST Office Visit [facility] Ophthalmology - [address] [phone] Gagandeep Rome MD [address] [place] [address], [facility] 5 [place] [address] 02/11/2025 13:30 EDT Telemedicine [facility] Hematology & Oncology [address] [address] Dana Padilla MD [address] [place] [address], Level 2 [place] [phone] documented as of this encounter Visit Diagnoses Not on filedocumented in this encounter Care Teams Web Press Roll Tender Relationship Specialty Start Date End Date Emigdio Veronica MD 2 [place] [address] PCP - General Internal Medicine - Primary Care 05/22/20 02/21/24 Izabella Snowden, [facility] 1 [facility], 3rd [place] [address] Spike Machine Operator 02/21/23 05/03/24 documented as of this encounter
--- OUTSIDE RECORDS SUMMARY | 2024-11-22 16:54 | XMS_ITS | Encounter Summary ---
Author Organization [facility] Address [address] [place] [address] Care Team Providers Care Credit Professional Name Role Phone Emigdio Veronica MD Primary Care Provider + Izabella Snowden [facility] Unavailable [phone] Reason for Visit * Reason Comments Chronic Pain Insomnia Nausea Encounter Details Date Type Department Care Team (Late st Contact Info) Description 07/13/2023 10:15 EDT Office Visit [facility] Adult Primary Care - [place] 2 [place], [place] [phone] Emigdio Veronica MD [address] [place] [address] Periodontal disease (Primary Dx); Chronic nausea; Primary insomnia; 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 (nonalcoholic steatohepatitis) (HCC-CMS); Hypokalemia; Chronic pain syndrome; Tobacco use; Healthcare maintenance Social History Tobacco Use Types [...] 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 on file Not o n file documented as of this encounter Last Filed Vital Signs Vital Sign Reading Time Taken Comments Blood Pressure 116/58 07/13/2023 1028 EDT Pulse 76 07/13/2023 1028 EDT r Temperature 35.8 ??C (96.5 ??F) 07/13/2023 1028 EDT Respiratory Rate 16 07/13/2023 1028 EDT Oxygen Saturation - - Inhaled Oxygen Concentration - - Weight 101.6 kg (224 lb) 07/13/2023 1028 EDT Height - - Body Mass Index 39.69 06/20/2023 1339 EDT documented in this encounter [...] Instructions * Patient Instructions* Ashley Weems - 07/13/2023 10:15 EDT Quitting smoking Stopping smoking is the [...] with a trained counselor. Tobacco Counseling in [facility] offers free counseling services to residents who are ready to cut back or quit using tobacco. Services include: phone coaching (), online tools and support for those who would like to make changes on their own (www.DataTorrent), as well as in-person group workshops. Free nicotine replacement therapy is available through all of these resources. To learn more about your options visit www.DataTorrent or call 6-685-MNRE-NOW ( ). To speak with an in-person tobacco counselor in [facility] call, [phone]. [place] Resident, please visit: https://www.InSample/ I hope you quit smoking. I think [...] Max: 15 mg 84 Tablet 08/02/2023 3 amoxicillin (AMOXIL) 500 mg capsule Take 1 Capsule by mouth 3 times daily for 14 days. 42 Capsule 07/13/2023 3 documented in this encounter Progress Notes * Emigdio Veronica III, MD - 07/13/2023 1015 EDT Tara Yun is a 62 y.o. female with a PMHx of chronic pain syndrome, nonalcoholic liver cirrhosis, thrombocytopenia, COPD, hypercoagulable state, BMI 39 PRIMARY CARE PROVIDER: Emigdio Veronica III CHIEF COMPLAINT: Chief Complaint Patient presents with ??? Chronic Pain ??? Insomnia ??? Nausea SUBJECTIVE: Tara Yun presents today for a follow-up visit on several issues. She reports her most pressing concern is periodontal pain. She is establish care with a local dentist and is awaiting a procedure to pull several of her top teeth for extensive periodontal disease and suspected periodontal abscesses in 3 weeks. She reports that over the last few weeks her gums havebecome extremely painful and erythematous and she is interested in securing a small course of antibiotics until she can receive definitive treatment for this issue from her dentist. In regards to several of her chronic issues she reports that her chronic nausea has been improving over the last few weeks. She confirms that she is still reliant on ondansetron for nausea control but states that she has only been taking ondansetron once daily for the last week. In terms of her chronic insomnia she reports that she has tolerated the transition from trazodone to doxepin well and is currently taking 20 mg of doxepin nightly to moderate control of her insomnia symptoms. She is still awaiting delivery of his CPAP machine and confirms that she needs to follow-up on this issue with sleep medicine. She reports that her ascites has been well controlled recently with a diuretic regiment of 60 mg offurosemide daily and 100 mg of spironolactone daily. We reviewed her most recent BMP which reflectsmild hypokalemia to 3.3. We discussed the impact of high-dose loop diuretic therapy on potassium levels. She continues to note moderate abdominal pain that is well controlled with her current prescriptionof oxycodone at 5 mg 3 times daily. She is willing to renew her controlled substance agreement and opioid consent at today's encounter. Unfortunately Gena continues to smoke tobacco cigarettes. She states she is currently consuming 1 pack every 10 days translating to around 2 cigarettes daily. She expresses interest in quitting but notes that she would like to do this on her own cold turkey. She denies any interest in nicotine replacement therapy or medication assistance to help her obtain tobacco cessation. We discussed the importance of achieving tobacco cessation given her history of asthma and COPD. ROS as above Medications and history reviewed. Current Outpatient Medications Medication ??? albuterol 90 mcg/actuation inhaler ??? amoxicillin (AMOXIL) 500 mg capsule ??? diclofenac sodium gel ??? doxepin (SINEQUAN) 10 mg capsule ??? enoxaparin (LOVENOX) 60 mg/0.6 mL injection ??? fluticasone propionate (FLOVENT DISKUS) 100 mcg/actuation blister with device ??? furosemide (LASIX) 20 mg tablet ??? gabapentin (NEURONTIN) 300 mg capsule ??? INCRUSE ELLIPTA 62.5 mcg/actuation ??? lactulose (CHRONULAC) 10 gram/15 mL solution ??? levothyroxine (SYNTHROID) 25 mcg tablet ??? naloxone (NARCAN) 4 mg/actuation nasal spray ??? ondansetron (ZOFRAN) 4 mg tablet ??? [START ON 08/02/2023] oxyCODONE (ROXICODONE) 5 mg immediate release tablet ??? OXYGEN-AIR DELIVERY SYSTEMS MISC ??? spironolactone (ALDACTONE) 100 mg tablet ??? sucralfate (CARAFATE) 1 gram tablet ??? venlafaxine (EFFEXOR-XR) 150 mg XR capsule No current facility-administered medications for this visit. Facility-Administered Medications Ordered in Other Visits Medication Route Frequency ??? albuterol (ACCUNEB) 2.5 mg /3 mL (0.083 %) nebulizer solution OBJECTIVE: BP 116/58 (BP Cuff Location: Right arm, BP Patient Position: Sitting, BP Cuff Sizes: Adult, regular) Pulse 76 Comment: r Temp 35.8 ??C (96.5 ??F) (Tympanic) Resp 16 Wt (!) 101.6 kg (224 lb) BMI 39.69 kg/m?? Gen: Chronically ill appearing obese middle-age female, NAD HEENT: EOMI, PERRL, oropharynx moist, poor dentition with gum erythema noted, conjunctiva pink, no scleral injection/ icterus Extrem: Trace bilateral lower extremity edema, warm and well perfused Skin: No rashes or erythema, intact Neuro: A&Ox3, CN II through XII grossly intact Recent Labs/Imaging: Reviewed in epic ASSESSMENT and PLAN: Tara was seen today for chronic pain, insomnia and nausea. Diagnoses and all orders for this visit: Periodontal disease: Patient confirms that she is following with dentistry and is planning to receive a tooth pulling procedure with their service in 3 weeks for definitive treatment. She reports increased swelling and pain around her front teeth and gums and is requesting a short course of antibiotics prior to her dental follow-up. - amoxicillin (AMOXIL) 500 mg capsule; Take 1 Capsule by mouth 3 times daily for 14 days. -Follow-up with dentistry Chronic nausea: Stable. -Continue ondansetron as needed as prescribed. Primary insomnia: Improved with initiation of doxepin -Continue doxepin as prescribed 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 (nonalcoholic steatohepatitis) (HCC-CMS) (HCC), Hypokalemia: Likely etiology of patient's hypokalemia is use of current loop diuretic - BASIC METABOLIC PANEL (BMP); Future -Continue furosemide and spironolactone as prescribed -Follow-up with hepatology as scheduled Chronic pain syndrome: Stable -Controlled substance agreement and opioid consent renewed at this encounter -Refill for 28-day supply of oxyCODONE (ROXICODONE) 5 mg immediate release tablet; Take 1 Tablet bymouth 3 times daily as needed for up to 28 days for Pain. Daily Max: 15 mg prescribed at this encounter. Tobacco use: Heavily encouraged tobacco cessation. Patient denies interest in assistance in achieving tobacco cessation at this time expressing desire to quit cold turkey on her own. -We will follow-up at our next encounter Healthcare maintenance -Patient declines offer for referral for colonoscopy at this time. We will follow-up at next visit. Health Maintenance Topic Date Due ??? Asthma Action Plan Never done ??? Lung Function Test (Spirometry) Never done ??? Copd Action Plan Never done ??? Advance Directive Never done ??? Preventive Care Visit Never done ??? Cervical Cancer Screening Never done ??? Colorectal Cancer Screening Never done ??? Breast Cancer Screening Never done ??? COVID-19 Vaccine (5 - Pfizer series) 07/15/2022 ??? Review Of Systems Adverse Effects 08/11/2023 ??? Functional Assessment 08/11/2023 ??? Current Opioid Misuse Measurement 08/11/2023 ??? Urine Drug Screen 09/17/2023 (Originally 04/29/2022) ??? Pill Count 09/17/2023 (Originally 02/19/2022) ??? Influenza Immunization (Adult) (1) 08/21/2023 ??? [place] Prescription Monitoring System 09/17/2023 ??? Behavioral Health Screen 02/25/2024 ??? Social Determinants Of Health (SDOH) 04/29/2024 ??? Opioid Informed Consent 07/13/2024 ??? Prescription Agreement 07/13/2024 ??? Pneumococcal Immunization (4 - PPSV23 or PCV20) 2025 ??? Lipid Profile Screening (Cholesterol) 04/16/2027 ??? Tetanus (Adult) Immunization 03/17/2029 ??? HIV Screening Completed ??? Shingles Immunization Completed ??? Hepatitis C Screen Completed ??? Pertussis (Adult) Immunization Discontinued F/u: Return in about 2 months (around 09/12/2023), or f45. I spent a total of 45 minutes with this patient today face to face, in chart review and in documentation and 40 minutes of that time was spent on education and counseling for periodontal disease, chronic nausea, insomnia, liver cirrhosis, hypokalemia, chronic pain syndrome, tobacco use and healthcare maintenance. Some of this note was transcribed with [employer] software. While it was proofread, it may still contain unnoticed grammatical or word errors due to incorrect transcribing. Emigdio Veronica III, MD 07/15/2023 9:19 documented in this encounter Plan of Treatment Upcoming Encounters Date Type Department Care Team (Late st Contact Info) Description 01/04/2025 13:00 EST Office Visit [facility] Ophthalmology - [address] [address] Gagandeep Rome MD [address] [place] [address], [facility] 5 [place] [address] 02/11/2025 13:30 EDT Telemedicine [facility] Hematology & Oncology [address] [phone] Dana Padilla MD [address] [place] [address], [facility] 2 [place] [address] documented as of this encounter Results * (ABNORMAL) BASIC METABOLIC PANEL (BMP) (08/05/2023 13:59 EDT) Sodium 137 136 - 145 mmol/L 08/05/2023 15:18 [facility] Potassium 4.4 3.5 - 5.0 mmol/L 08/05/2023 15:18 [facility] Chloride 101 96 - 110 mmol/L 08/05/2023 15:18 [facility] CO2 Total 26 22 - 32 mmol/L 08/05/2023 15:18 [facility] Anion Gap 10 5 - 14 mmol/L 08/05/2023 15:18 [facility] Glucose 88 70 - 99 mg/dl 08/05/2023 15:18 [facility] Calcium 9.1 8.5 - 10.5 mg/dL 08/05/2023 15:18 [facility] BUN 16 10 - 26 mg/dL 08/05/2023 15:18 [facility] Creatinine 1.27(H) 0.52 - 1.04 mg/dL 08/05/2023 15:18 [facility] eGFR 48(L) >60 mL/min/1.73 m2 08/05/2023 15:18 [facility] Blood VENOUS BLOOD / Unknown Venipuncture / Unknown 08/05/2023 13:59 EDT 08/05/2023 14:00 EDT us Emigdio Veronica MD CHEMISTRY & BLOOD GAS OR DERABLES Final Result [facility] [address] [place] [address] documented in this encounter Visit Diagnoses Diagnosis Periodontal disease- Primary Unspecified gingival and periodontal disease Chronic nausea Nausea alone Primary insomnia Persistent disorder of initiating or maintaining sleep 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 (nonalcoholic steatohepatitis) (HCC-CMS) Other chronic nonalcoholic liver disease Hypokalemia Hypopotassemia Chronic pain syndrome Tobacco use Tobacco use disorder Healthcare maintenance Routine general medical examination at a health care facility documented in this encounter Discontinued Medications Medication Sig Discontinue Reason Start Date End Da te oxyCODONE (ROXICODONE) 5 mg immediate release tablet Take 1 Tablet by mouth 3 times daily as needed for up to 28 days for Pain. Daily Max: 15 mg Reorder 07/05/2023 07/15/2023 documented as of this encounter Care Teams Credit Professional Relationship Specialty Start Date End Date Emigdio Veronica MD 2 [place] [phone] PCP - General Internal Medicine - Primary Care 05/22/20 02/21/24 Izabella Snowden, [facility] 1 [facility], 3rd [place] [address] Clinical Laboratory Technologist 02/21/23 05/03/24 documented as of this encounter
--- OUTSIDE RECORDS SUMMARY | 2024-11-22 16:54 | XMS_ITS | Encounter Summary ---
Author Organization [facility] Address [address] [place] [address] Care Team Providers Care Flower Cutter Name Role Phone Emigdio Veronica MD Primary Care Provider + Izabella Snowden 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 [...] of Assessment Author No 04/29/2023 11:26 Franca Billinsg RN * Do you have difficulty dressing [...] Franca Billings RN documented in this encounter Plan of Treatment Upcoming Encounters Date Type Department Care Team (Late st Contact Info) Description 01/04/2025 13:00 EST Office Visit [facility] Ophthalmology - [address] [phone] Gagandeep Rome MD [address] [place] [address], [facility] 5 [place] [phone] 02/11/2025 13:30 EDT Telemedicine [facility] Hematology & Oncology [address] [phone] Dana Padilla MD [address] [place] [address], [facility] 2 [place] [address] documented as of this encounter Visit Diagnoses Not on filedocumented in this encounter Additional Health Concerns Infection Onset Date Last Indicated Resolved Time R/O COVID-19 09/07/2023 09/07/2023 09/07/2023 22:1 6 EDT documented as of this encounter Care Teams Flower Cutter Relationship Specialty Start Date End Date Emigdio Veronica MD [address] [place] [phone] PCP - General Internal Medicine - Primary Care 05/22/20 02/21/24 None, Provider PCP - General 02/24/24 03/18/24 Gabriel Gandara PA PCP - General 03/19/24 09/11/24 Mirna Guerrero PA [address] [place] [id number] PCP - General 09/12/24 Iazbella Snowden LICSW 1 [facility], 3rd [place] [phone] Senior Climate Advisor 02/21/23 05/03/24 documented as of this encounter
--- OUTSIDE RECORDS SUMMARY | 2024-11-22 16:54 | XMS_ITS | Encounter Summary ---
Author Organization [facility] Address [address] [place] [address] Care Team Providers Care Short Story Writer Name Role Phone Emigdio Veronica MD Primary Care Provider + Izabella Snowden [facility] Unavailable None, Provider Primary Care Provider Gabriel Wei Primary Care Provider Mirna Guerrero Primary Care Provider + Reason for Visit * Reason Comments Medications Refill Encounter Details Date Type Department Care Team (Late st Contact Info) Description 07/04/2023 Refill [facility] Adult Primary Care - [place] [address] [place] [address] Emigdio Veronica MD [address] [place] [address] Medications Refill Social History Tobacco [...] 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 gabapentin (NEURONTIN) 300 mg capsule [Pharmacy Med Name: GABAPENTIN 300 MG CAPSULE] 270 Capsule 0 Sig: TAKE 1 CAPSULE BY MOUTH THREE TIMES A DAY [facility]/pharmacy #[id number] - [address] Confirmed Pharmacy? Yes Patient out of medication? Unknown Last Refill Date: 03/12/23 Refills left? (explain exceptions requiring early refill) No Recent Visits Date Type Provider Dept 06/29/23 Office Visit Scottie Campuzano PA-C [facility] Adult Prim Care 06/10/23 Office Visit Emigdio Veronica III, MD [facility] Adult Prim Care 05/26/23 Office Visit Scottie Campuzano PA-C [facility] Adult Prim Care 05/05/23 Office Visit Emigdio Veronica III, MD [facility] [place] Adult Prim Care 04/26/23 Office Visit Scottie Campuzano PA-C [facility] [place] Adult Prim Care 03/15/23 Office Visit Emigdio Veronica III, MD [facility] [place] Adult Prim Care 02/24/23 Office Visit Scottie Campuzano PA-C [facility] [place] Adult Prim Care 02/16/23 Office Visit Scottie Campuzano PA-C [facility] [place] Adult Prim Care 01/21/23 Office Visit Emigdio Veronica III, MD [facility] [place] Adult Prim Care 01/05/23 Office Visit Emigdio Veronica III, MD [facility] Adult Prim Care Showing recent visits within past 540 days with a meds authorizing provider and meeting all other requirements Future Appointments Date Type Provider Dept 07/13/23 Appointment Emigdio Veronica III, MD [facility] Adult Prim Care Showing future appointments within next 150 days with a meds authorizing provider and meeting all other requirements Future appointment: Already Scheduled FATOUMATA FOWLER RN 07/05/2023 11:05 documented in this encounter Plan of Treatment Upcoming Encounters Date Type Department Care Team (Late st Contact Info) Description 01/04/2025 13:00 EST Office Visit [facility] Ophthalmology - [address] [id number] Gagandeep Rome MD [address] [place] [address], [facility] [address] [place] [address] 02/11/2025 13:30 EDT Telemedicine [facility] Hematology & Oncology [address] [address] Dana Padilla MD [address] [place] [address], Level [address] [place] [phone] documented as of this encounter Visit Diagnoses Not on filedocumented in this encounter Discontinued Medications Medication Sig Discontinue Reason Start Date End Da te gabapentin (NEURONTIN) 300 mg capsule Take 1 Capsule by mouth 3 times daily. 03/12/2023 07/05/2023 documented as of this encounter Additional Health Concerns Infection Onset Date Last Indicated Resolved Time R/O COVID-19 09/07/2023 09/07/2023 09/07/2023 22:1 6 EDT documented as of this encounter Care Teams Short Story Writer Relationship Specialty Start Date End Date Emigdio Veronica MD [address] [place] [address] PCP - General Internal Medicine - Primary Care 05/22/20 02/21/24 None, Provider PCP - General 02/24/24 03/18/24 Gabriel Gandara PA PCP - General 03/19/24 09/11/24 Mirna Guerrero PA [address] [place] [address] PCP - General 09/12/24 Izabella Snowden LICSW 1 [facility], 3rd [place] [address] Secretarial Teacher 02/21/23 05/03/24 documented as of this encounter
--- OUTSIDE RECORDS SUMMARY | 2024-11-22 16:54 | XMS_ITS | Encounter Summary ---
Author Organization [facility] Address [address] [place] [address] Care Team Providers Care Daycare Director Name Role Phone Emigdio Fernandez MD Primary Care Provider + Izabella Snowden [facility] Unavailable [phone] Reason for Referral * Consult (Routine/Next Available) - Closed Specialty Diagnoses / Procedures Referred By [facility] Referred To Contact Urology Diagnoses Hematuria, unspecified type History of kidney stones Ruth Ortez MD PhD Phone: tel: fax: Lon Ortez MD Phone: tel: fax: Referral ID Status Reason Start Date Expiration Date V isits Requested Visits Authorized [id number] Closed Specialty Services Required 08/25/2023 1 1 Question Answer Reason for Request: gross hematuria, negative renal colic CT in ER. on lovenox. Pt of Dr. Ortez last seen in 2020. Reason for Visit * Reason Comments Post-ED Follow Up L flank pain and hem aturia x 1 week went ED on 08/17/23. Flank pain #8 as we speak. Hematuria is happening a couple times a day. 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 file Not on file Not o n file documented as of this encounter Last Filed Vital Signs Vital Sign Reading Time Taken Comments Blood Pressure 108/57 08/25/2023 1540 EDT Pulse 86 08/25/2023 1540 EDT Temperature 36.7 ??C (98 ??F) 08/25/2023 1540 EDT Respiratory Rate 22 08/25/2023 1540 EDT Oxygen Saturation 94% 08/25/2023 1540 EDT Inhaled Oxygen Concentration - - Weight 101.2 kg (223 lb) 08/25/2023 1540 EDT Height - - Body Mass Index 39.51 08/15/2023 1354 EDT documented in this encounter [...] documented in this encounter Progress Notes * Ruth Ortez MD PhD - 08/25/2023 1530 EDT Patient ID: Tara Yun is an 63 y.o. female. Chief Complaint: Post-ED Follow Up (L flank pain and hematuria x 1 week went ED on 08/17/23. Flank pain #8 as we speak. Hematuria is happening a couple times a day.) Subjective: HPI: ED follow Up Tara is here for ongoing hematuria and left low back/flank pain. This has been a chronic problem. She was seen in the ED for this problem last week, 08/17. CT abd and pelvis WO contrast did not show any evidence of left ureteral stone. Other findings were without change from previous CT and knownproblems. Labs with CR 1.31 and eGFR 46. Cbc with normal Hgb and platelets improved at 104. Urine mi micro paleontologist with >50 rbc/hpf and moderate squams. Today she states she continues to have left lowback/flank pain and hematuria unchanged. She was also seen in ED for same problem in February [address] without contrast was negative for stone. .She has a history of hematuria and kidney stones dating back a number of years. The earliest in [facility] was with Dr. Mullen in 2014 for kidney stone and stent. She was then seen by Dr. Ortez 08/[address] urogram was done that did not show significant abnormality in renal - urinary system. Cystoscopy was delayed and done in January 2020 and negative. She went on to have another stone on left in 11/09 with stent. Stent removed 01/19/21. 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 She started lovenox in 04/23/21 for the Portal vein thrombosis. Anticoagulation has been off and on due to various issues including GI bleed. She was on apixaban for a while. It looks like she has been back on lovenox 60 mg daily since 02/10 due to question of extension of PV thrombosis. . Her meds were reviewed. She took Lasix took 60 this morning plus spirnolactone, as instructed by Glenys in the event that leg edema is worse. No constipation.. She rents a room in a house and lives cooperatively with the others. She states she does a lot of the work and cooking. Review of Systems Constitutional: Negative for chills and fever. Cardiovascular: Negative for chest pain. Gastrointestinal: Negative for abdominal pain, nausea and vomiting. Neurological: Negative for dizziness. Problem list, med list, family and social history reviewed and updated Objective: BP 108/57 Pulse 86 Temp 36.7 ??C (98 ??F) (Skin) Resp 22 Wt (!) 101.2 kg (223 lb) SpO2 94% BMI 39.51 kg/m?? Physical Exam Vitals reviewed. Constitutional: Appearance: She is well-developed and well-nourished. Cardiovascular: Rate and Rhythm: Normal rate and regular rhythm. Pulmonary: Effort: Pulmonary effort is normal. Breath sounds: Normal breath sounds. No wheezing or rhonchi. Abdominal: General: Bowel sounds are normal. There is no distension. Palpations: Abdomen is soft. Tenderness: There is no abdominal tenderness. Musculoskeletal: General: No edema. Neurological: Mental Status: She is alert and oriented to person, place, and time. (recent labs pasted below) Assessment / Plan: Tara was seen today for post-ed follow up. Diagnoses and all orders for this visit: Hematuria, unspecified type - in setting of being on lovenox. No stone on CT. Her hct and hgb is normal. She has not seen urology for over two years and I will refer again for opinion regarding repeat cystocsopy for evaluation of bladder and urinary epithelia. She is a smoker. She will get UA done in lab tomorrow. - POCT URINE CLINITEK (DIPSTICK) - DOES NOT REFLEX - URINE CHEMICAL (DIP) & SEDIMENT (MICRO) WITH REFLEX TO CULTURE; Future - AMB CONS/FOLLOW UP UROLOGY; Future History of kidney stones - AMB CONS/FOLLOW UP UROLOGY; Future Thrombocytopenia (HCC-CMS) Superior mesenteric vein thrombosis (HCC-CMS) - she follows with Dr. Padilla. I will contact her regarding ongoing anticoagulation. I continued for now given stable CBC. Secondary hypercoagulable state (HCC-CMS) Stage 3a chronic kidney disease (HCC-CMS) - she will see Dr. fernandez in a month and should have renal checked again. Other cirrhosis of liver (HCC-CMS) Chronic pain syndrome - left low back/flank. She is taking the oxycodone 5 mg bid and the topical diclofenac with good effect. Follow up one month. Pasted medication list, recent labs and problem list: Outpatient Medications Marked as Taking for the 08/25/23 encounter (Office Visit) with Ruth Ortez MD PhD Medication Sig Dispense Refill ??? albuterol 90 mcg/actuation inhaler [...] TIMES A DAY 270 Capsule 0 ??? hydrOXYzine (ATARAX) 25 mg tablet Take 1-2 Tablets by mouth 3 times daily as needed for Anxiety. 30 Tablet 0 ??? INCRUSE ELLIPTA 62.5 mcg/actuation INHALE [...] Pain. Daily Max: 15 mg 84 Tablet 0 ??? OXYGEN-AIR DELIVERY SYSTEMS MISC 2 L [...] medication is 150 mg). 90 Capsule 3 Results for orders placed or performed during the hospital encounter of 08/17/23 BACTERIAL CULTURE, URINE Specimen: Urine, Clean Catch Result Value Ref Range Organism ID Less than 10,000 CFU/ml Usual urogenital tiffanie HOLD LAVENDER TOP Result Value Ref Range Hold Hold HOLD SST Result Value Ref Range Hold Hold HOLD GREEN TOP Result Value Ref Range Hold Hold HOLD BLUE TOP Result Value Ref Range Hold Hold URINE CHEMICAL (DIP) & SEDIMENT (MICRO) WITH REFLEX TO CULTURE Result Value Ref Range Color UA Yellow Colorless, Yellow Clarity UA Clear Clear Glucose UA Negative Negative mg/dL Bilirubin UA Negative Negative Ketones UA Negative Negative Specific [place], Urine 1.015 1.001 - 1.035 Blood UA 3+ (A) Negative Urobilinogen UA 4 (A) Normal mg/dL Nitrite UA Negative Negative Leukocyte Esterase UA Negative Negative Protein UA 1+ (A) Negative mg/dL pH, UA 7.0 4.6 - 8.0 Urine RBC Count, Auto >50 (A) 0 - 2 Cells/HPF Urine WBC Count, Auto 4 - 10 (A) 0 - 3 Cells/HPF Urine Squamous Count, Auto Moderate (A) None Seen Cells/HPF Urine Hyaline Cast Count, Auto <=10 <=10 Casts/LPF Urine Bacteria Count, Auto None Seen None Seen Bacteria/HPF COMPREHENSIVE METABOLIC PANEL (CMP) Result Value Ref Range Sodium 136 136 - 145 mmol/L Potassium 4.4 3.5 - 5.0 mmol/L Chloride 99 96 - 110 mmol/L CO2 Total 23 22 - 32 mmol/L Glucose 84 70 - 99 mg/dl BUN 23 10 - 26 mg/dL Creatinine 1.31 (H) 0.52 - 1.04 mg/dL eGFR 46 (L) >60 mL/min/1.73m2 Total Protein 7.3 6.3 - 8.2 g/dL Albumin 4.3 3.4 - 4.9 g/dL Alkaline Phosphatase 126 38 - 126 U/L AST 27 15 - 46 U/L ALT 17 <35 U/L Bilirubin, Total 0.7 <1.4 mg/dL Calcium 9.0 8.5 - 10.5 mg/dL Albumin/Globulin Ratio 1.4 1.0 - 2.5 g/dL Anion Gap 14 5 - 14 mmol/L COMPLETE BLOOD COUNT AND DIFFERENTIAL Result Value Ref Range WBC 3.70 (L) 4.00 - 12.40 K/cmm RBC 3.97 3.86 - 5.04 M/cmm Hemoglobin 12.2 11.6 - 15.2 g/dL HCT 35.6 34.9 - 44.4 % MCV 90 81 - 98 fL MCH 30.7 26.7 - 33.3 pg MCHC 34.3 32.1 - 35.9 g/dL RDW-CV 14.0 <14.7 % RDW-SD 45.9 <50.4 fl PLT 103 (L) 141 - 377 K/cmm MPV 10.1 9.5 - 12.7 fL % Neutrophils 71.8 % % Lymphocytes 14.9 % % Monocytes 10.3 % % Eosinophils 1.1 % % Basophils 1.1 % % Immature Grans 0.8 % Absolute Neutrophils 2.66 2.20 - 8.85 K/cmm Absolute Lymphocytes 0.55 (L) 1.09 - 3.30 K/cmm Absolute Monocytes 0.38 0.10 - 0.80 K/cmm Absolute Eosinophils 0.04 0.03 - 0.61 K/cmm ABS Basophils 0.04 0.01 - 0.11 K/cmm Absolute Immature Grans 0.03 0.00 - 0.06 K/cmm Type of Differential: Auto *Note: Due to a large number of results and/or encounters for the requested time period, some results have not been displayed. A complete set of results can be found in Results Review. Patient Active Problem List Diagnosis ??? Pancytopenia [...] Hematemesis, unspecified whether nausea present ??? Hematemesis documented in this encounter Plan of Treatment Upcoming Encounters Date Type Department Care Team (Late st Contact Info) Description 01/04/2025 13:00 EST Office Visit [facility] Ophthalmology - [address] [address] Gagandeep Rome MD [address] [place] [address], Level 5 [place] [address] 02/11/2025 13:30 EDT Telemedicine [facility] Hematology & Oncology - [facility] [address] [place] [address] Dana Padilla MD [address] [facility], Level 2 [place] [phone] Scheduled Referrals Name Type Priority Associated Diagnoses Order Schedule AMB CONS/FOLLOW UP UROLOGY Outpatient Referral Routine/Next Available Hematuria, unspecified type History of kidney stones Expected: 08/25/2023 (Approximate), Expires: 08/25/2024 documented as of this encounter Procedures Procedure Name Priority Date/Time Associated Diagnosis Comments POCT CSN BARCODE URINE DIPSTICK Routine 08/25/2023 15:53 EDT Hematuria, unspecified type POCT URINE CLINITEK (DIPSTICK) - DOES NOT REFLEX Routine 08/25/2023 15:53 EDT Hematuria, unspecified type documented in this encounter Results * POCT CSN BARCODE URINE DIPSTICK (08/25/2023 15:53 EDT) Urine URINE SPECIMEN OBTAINED BY CLEAN CATCH PROCEDURE / Unknown 08/25/2023 15:53 EDT 08/25/2023 15:53 EDT us Ruth Ortez MD PhD LAB INFO SERVICE AND DE [place] PPORT & PHONE RESULT Final Result [facility] [address] [place] [address] documented in this encounter Visit Diagnoses Diagnosis Hematuria, unspecified type- Primary History of kidney stones Personal history of urinary calculi Thrombocytopenia (HCC-CMS) Thrombocytopenia, unspecified Superior mesenteric vein thrombosis (HCC-CMS) Acute vascular insufficiency of intestine Secondary hypercoagulable state (HCC-CMS) Secondary hypercoagulable state Stage 3a chronic kidney disease (HCC-CMS) Other cirrhosis of liver (HCC-CMS) Chronic pain syndrome documented in this encounter Care Teams Daycare Director Relationship Specialty Start Date End Date Emigdio Fernandez MD [address] [place] [phone] PCP - General Internal Medicine - Primary Care 05/22/20 02/21/24 Izabella Snowden, [facility] 1 [facility], 3rd [place] [address] Nitrate Operator 02/21/23 05/03/24 documented as of this encounter
--- OUTSIDE RECORDS SUMMARY | 2024-11-22 16:54 | XMS_ITS | Encounter Summary ---
Author Organization [facility] Address [address] [place] [address] Care Team Providers Care Event Sales Manager Name Role Phone Emigdio Fernandez MD Primary Care Provider + Izabella Snowden [facility] Unavailable [phone] Reason for Visit * Reason Onset Date Comments Follow-up 07/21/2023 Mouth Abscess Encounter Details Date Type Department Care Team (Late st Contact Info) Description 07/21/2023 Telephone [facility] Adult Primary Care - [place] [address] [place] [address] Emigdio Fernandez MD [address] [place] [address] Follow-up (Mouth Abscess ) Social History Tobacco Use Types Packs/Day [...] 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 The patient and/or family indicates understanding of these issues and agrees with the plan. No barriers. She already has viscus lidocaine on hand so won't need refill. * Telephone Encounter - Heike Mcleod RN - 07/26/2023 0842 EDT [email or web address] HEIKE MCLEOD RN 07/26/2023 8:42 * Addendum Note - Emigdio Fernandez III, MD - 07/26/2023 0834 EDTAddended by: EMIGDIO FERNANDEZ III on: 07/26/2023 08:34 Modules accepted: Orders * Telephone Encounter - Emigdio Fernandez III, MD - 07/26/2023 0828 EDT I am sadly not surprised by this outcome. If her pain is secondary to a dental / peridontal abscessthe only effective treatment is source control with dentistry. She can stop the antibiotics. We can try viscous lidocaine as a topical pain reliever if she is willing to try it. If pain is severe, uncontrolled and preventing her from eating then ED presentation would be the appropriate next step. * Telephone Encounter - Heike Mcleod RN - 07/22/2023 1501 EDT Call to pt Advised dr Fernandez out of clinic until Tuesday She has been icing with liquid diet Advised to go to if needed. [facility] clinic is a resource if needed Pt denies fever The patient indicates understanding of these issues and agrees with the plan. HEIKE MCLEOD RN 07/22/2023 15:02 * Telephone Encounter - Tiny Moss - 07/22/2023 1351 EDT Pt calling back asking for update * Telephone Encounter - Heike Mcleod RN - 07/21/2023 1643 EDT Call to pt Aug 09 sees dentist; new patient appt but they will not be pulling teeth at that appt. Going to [facility] Has abscess, puffy, can barely eat Was rxed amox abx for [address] fernandez Is cold a lot but has not checked her temp Is sleeping a lot as is warn down Is already on chronic pain medications recommendations? * Telephone Encounter - Cynthia Huang - 07/21/2023 1505 EDT Reason for Call: Follow-up (Mouth Abscess ) Summary/Symptoms: Pt is calling as the antibiotic that she was prescribed is not helping at, she's been taking it fora week and it is not helping at all. Mouth is still swollen, Pt is in a lot of pain. Onset and Duration: Ongoing Previously seen at/discussed with this office for issue: Yes Does the patient have a computer, laptop or smart phone with high speed & video capability? N/A If so, would they be interested in doing a video visit via [employer]? N/A Appointment Offered? No Cynthia Huang 07/21/2023 15:06 documented in this encounter Plan of Treatment Upcoming Encounters Date Type Department Care Team (Late st Contact Info) Description 01/04/2025 13:00 EST Office Visit [facility] Ophthalmology - [address] [phone] Gagandeep Rome MD [address] [place] [address] [address] [place] [phone] 02/11/2025 13:30 EDT Telemedicine [facility] Hematology & Oncology - [address] [phone] Dana Padilla MD [address] [place] [address], [facility] 2 [place] [address] documented as of this encounter Visit Diagnoses Not on filedocumented in this encounter Care Teams Event Sales Manager Relationship Specialty Start Date End Date Emigdio Fernandez MD [address] [place] [address] PCP - General Internal Medicine - Primary Care 05/22/20 02/21/24 Izabella Snowden, [facility] 1 [facility], 3rd [place] [address] Diabetologist 02/21/23 05/03/24 documented as of this encounter
--- OUTSIDE RECORDS SUMMARY | 2024-11-22 16:54 | XMS_ITS | Encounter Summary ---
Author Organization [facility] Address [address] [place] [address] Care Team Providers Care Rotary Rig Engine Operator Name Role Phone Emigdio Veronica MD Primary Care Provider + Izabella Snowden [facility] Unavailable [phone] Reason for Referral * Referral (Routine/Next Available) - Authorization Not Required Specialty Diagnoses / Procedures Referred By Contact Referred To Contact Gastroenterology and Hepatology Diagnoses Cirrhosis, nonalcoholic (HCC-CMS) Procedures UPPER ENDOSCOPY (EGD) VA ESOPHAGOGASTRODUODENOSCOPY TRANSORAL DIAGNOSTIC VA EGD TRANSORAL BIOPSY SINGLE/MULTIPLE VA ANESTHESIA UPPER GI ENDOSCOPIC PX NOS Micheal Moseley MD PhD Phone: tel: fax:[phone] [facility] Gastroenterology - Main [address] [address] Phone: tel: fax: Referral ID Status Reason Start Date Expiration Date Visits Requested Visits Authorized [id number] Authorization Not Required 08/15/2023 1 1 Reason for Visit * Reason Comments Follow-up Cirrhosis of the frandy er Encounter Details Date Type Department Care Team (Late st Contact Info) Description 08/15/2023 14:00 EDT Office Visit [facility] Gastroenterology - [facility] [address] [place], [place] [id number] Micheal Moseley MD PhD [address] 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 Not on file Not o n file documented as of this encounter Last Filed Vital Signs Vital Sign Reading Time Taken Comments Blood Pressure 118/80 08/15/2023 1354 EDT Pulse 101 08/15/2023 1354 EDT Temperature - - Respiratory Rate - - Oxygen Saturation 98% 08/15/2023 1354 EDT Inhaled Oxygen Concentration - - Weight 103.1 kg (227 lb 6.4 oz) 08/15/2023 1354 EDT Height 160 cm (5' 2.99) 08/15/2023 1354 EDT Body Mass Index 40.29 08/15/2023 1354 EDT documented in this encounter [...] Answer Entry Date Author No 04/29/2023 11:26 BATSHEVA Marquez, Franca mcmahon RN documented in this encounter Progress Notes * Micheal Moseley MD PhD - 08/15/2023 1400 EDT [facility] GASTROENTEROLOGY AND HEPATOLOGY PROGRESS / FOLLOWUP NOTE - 08/15/2023 Emigdio Veronica MD [facility] - Adult Primary [facility] [place] [address] [place] [address] Veronica: Thank you for asking me to see your patient Gena Yun in the office today. I saw her along withgastroenterology fellow Dr Farooq Beauchamp. 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 I last saw her in December 2020, when cirrhosis was clinically compensated. She underwent surveillance endoscopy in December 2021, and no abnormalities were identified. Surveillance endoscopy was recommended in 2023. In April 2023, the patient was admitted to [facility] with hematemesis following a week of nausea and vomiting. The MELD 3.0 score was 10 (range 6-40) a CT scan of the abdomen did not demonstrate ascites or intrahepatic lesions. Chronic nonocclusive thrombosis of the portal and splenic vein was seen. 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 Current medications include furosemide 20 mg daily, spironolactone 100 mg daily, Lovenox, doxepin, gabapentin, thyroxine, oxycodone, sucralfate, venlafaxine, and albuterol inhaler. On physical examination, the patient was found to be a cooperative woman weight 227 pounds (BMI 40.29) blood pressure 118/80 pulse 101. The sclerae were clear. There was no obvious ascites. Laboratory data obtained in May 2023 show bilirubin 0.8, alkaline phosphatase 142, ALT 19, AST 25,albumin 3.9, sodium 134, creatinine 1.35 (GFR 44). In summary, Ms Yun has cirrhosis, presumed to be secondary to MASLD, which is currently clinically compensated. The current treatment of choice for MASLD is weight management (goal to lose at least10% body weight). Given the absence of ascites on abdominal imaging, consideration could be given to tapering the dosage of diuretics (provided that ascites does not recur). Cirrhosis places the patient at risk for other portal hypertensive complications, including gastrointestinal variceal bleeding. I will therefore schedule surveillance endoscopy (with anesthesia sedation) in early 2023. If gastroesophageal varices are identified, I suggest that you initiate preventat suresh treatment with either nadolol (20 mg daily) or propranolol 20 mg twice daily). If no varices are identified, surveillance endoscopy should be performed in 2025. Cirrhosis also places the patient at risk for the development of hepatocellular carcinoma. I therefore suggest that you arrange for surveillance right upper quadrant abdominal ultrasound in October 2023 and every 6 months thereafter. My only other recommendation is that you continue to monitor the patient at least every 3 months with a complete blood count, comprehensive metabolic panel, and prothrombin time. Assuming that she remains otherwise stable from the standpoint of liver disease, I would like to see her in follow-up in approximately 1 year. I would be prepared to see her sooner for a liver specific issue (e.g., diuretic resistant ascites, new hepatic lesion) or if the MELD 3.0 score increases above 15. Thank you once again for allowing me to see this patient in consultation with you. Should you have any further questions regarding this evaluation, please feel free to contact me at any time. Sincerely, Micheal Moseley MD,PhD cc: MD Dana Victor MD I spent a total of 35 minutes on the date of this encounter meeting with the patient and reviewing documentation/coordinating care as described in the above note. documented in this encounter Plan of Treatment Upcoming Encounters Date Type Department Care Team (Late st Contact Info) Description 01/04/2025 13:00 EST Office Visit [facility] Ophthalmology - [facility] [address] [place] [address] Gagandeep Rome MD [address] [place] [address], [address] [place] [phone] 02/11/2025 13:30 EDT Telemedicine [facility] Hematology & Oncology - [address] [phone] Dana Padilla MD 111 [facility], [facility], [address] 2 [place] [phone] Pending Results Name Type Priority Associated Diagnoses Date /Time UPPER ENDOSCOPY (EGD) GI Routine Cirrhosis, nonalcoholic (HCC-CMS) 05/10/2024 13:14 EDT Scheduled Orders Name Type Priority Associated Diagnoses Orde r Schedule UPPER ENDOSCOPY (EGD) GI Routine Cirrhosis, nonalcoholic (HCC-CMS) Expected: 01/04/2024 (Approximate), Expires: 02/12/2025 documented as of this encounter Visit Diagnoses Diagnosis Cirrhosis, nonalcoholic (HCC-CMS)- Primary Cirrhosis of liver without mention of alcohol documented in this encounter Care Teams Rotary Rig Engine Operator Relationship Specialty Start Date End Date Emigdio Veronica MD 2 [place] [phone] PCP - General Internal Medicine - Primary Care 05/22/20 02/21/24 Izabella Snowden, TELEPHONE LINEMAN 1 [facility], 3rd [place] [phone] Frame Stripper And Crusher 02/21/23 05/03/24 documented as of this encounter
--- OUTSIDE RECORDS SUMMARY | 2024-11-22 16:54 | XMS_ITS | Encounter Summary ---
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 Previous message left on 08/05/23. Received message from Dr. Veronica that patient is struggling with anxiety. He requested a phone outreach to patient. Attempted to reach patient today, no answer, LVM for patient requesting call back. PLAN: LVM for patient requesting call back. DARNELL MCCORMICK 08/26/2023 16:16 documented in this encounter Plan of Treatment Upcoming Encounters Date Type Department Care Team (Late st Contact Info) Description 01/04/2025 13:00 EST Office Visit [facility] Ophthalmology - [address] [address] Gagandeep Rome MD [address] [place] [address] 5 [place] [phone] 02/11/2025 13:30 EDT Telemedicine [facility] Hematology & Oncology [address] [address] Dana Padilla MD [address] [place] [address], [address] [place] [phone] documented as of this encounter Visit Diagnoses Not on filedocumented in this encounter Care Teams Gum Machine Operator Relationship Specialty Start Date End Date Emigdio Veronica MD 2 [place] [address] PCP - General Internal Medicine - Primary Care 05/22/20 02/21/24 Izabella Snowden, [facility] 1 [facility], 3rd [place] [address] Director Financial Services 02/21/23 05/03/24 documented as of this encounter
--- OUTSIDE RECORDS SUMMARY | 2024-11-22 16:54 | XMS_ITS | Encounter Summary ---
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 machining manager called and left voicemail requesting call back to schedule a check in time. If no response, CM will reach out again in 1-2 weeks. documented in this encounter Plan of Treatment Upcoming Encounters Date Type Department Care Team (Late st Contact Info) Description 01/04/2025 13:00 EST Office Visit [facility] Ophthalmology - [address] [phone] Gagandeep Rome MD [address] [place] [address], [facility] 5 [place] [phone] 02/11/2025 13:30 EDT Telemedicine [facility] Hematology & Oncology [address] [address] Dana Padilla MD [address] [place] [address], [facility] 2 [place] [phone] documented as of this encounter Visit Diagnoses Not on filedocumented in this encounter Care Teams Brand Marketing Manager Relationship Specialty Start Date End Date Emigdio Veronica MD 2 [place] [address] PCP - General Internal Medicine - Primary Care 05/22/20 02/21/24 Izabella Snowden, [facility] 1 [facility], 3rd [place] [address] Blueprint Cutter 02/21/23 05/03/24 documented as of this encounter
--- OUTSIDE RECORDS SUMMARY | 2024-11-22 16:54 | XMS_ITS | Encounter Summary ---
Author Organization [facility] Address [address] [place] [address] Care Team Providers Care Inspector Boiler Name Role Phone Emigdio Veronica MD Primary Care Provider + Izabella Snowden COSTUME RENTAL CLERK Unavailable [phone] Encounter Details Date Type Department Care Team (Late st Contact Info) Description 06/30/[address] 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 No answer-CM LVM requesting a call back. PLAN: LVM for patient. If no response-CM will attempt another outreach in 2 weeks. DARNELL MCCORMICK 06/30/2023 16:16 documented in this encounter Plan of Treatment Upcoming Encounters Date Type Department Care Team (Late st Contact Info) Description 01/04/2025 13:[address] [facility] Ophthalmology - [address] [phone] Gagandeep Rome MD [address] [place] [address], [facility] 5 [place] [phone] 02/11/2025 13:30 EDT Telemedicine [facility] Hematology & Oncology [address] [phone] Dana Padilla MD [address] [place] [address], [facility] 2 [place] [phone] documented as of this encounter Visit Diagnoses Not on filedocumented in this encounter Care Teams Inspector Boiler Relationship Specialty Start Date End Date Emigdio Veronica MD 2 [place] [phone] PCP - General Internal Medicine - Primary Care 05/22/20 02/21/24 Izabella Snowden, [facility] 1 [facility], 3rd [place] [address] Artistic Director 02/21/23 05/03/24 documented as of this encounter
--- OUTSIDE RECORDS SUMMARY | 2024-11-22 16:54 | XMS_ITS | Encounter Summary ---
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 (5 years old or older) Answer Entry Date Author No 04/29/2023 11:26 EDFranca Meier RN documented in this encounter Ordered Prescriptions Prescription Sig Dispense Quantity Refills Last Filled Start Date End Date ondansetron (ZOFRAN) 4 mg tablet TAKE 1 TABLET BY MOUTH EVERY 8 HOURS NEEDED FOR NAUSEA 90 Tablet 07/31/2023 08/31/2023 documented in this encounter Miscellaneous Notes * Telephone Encounter - Esequiel Menon RN - 07/31/2023 1501 EDT Requested Prescriptions Pending Prescriptions Disp Refills ??? ondansetron (ZOFRAN) 4 mg tablet [Pharmacy Med Name: ONDANSETRON HCL 4 MG TABLET] 90 Tablet 1 Sig: TAKE 1 TABLET BY MOUTH EVERY 8 HOURS NEEDED FOR NAUSEA Pharmacy: [facility] Pharmacy [facility] Last Refill Date: 06/01/23 90 tablets with 1 refill Last Visit Date: 07/13/23 Next Non-Acute Visit Date Scheduled with Care Team: 09/21/23 ESEQUIEL MENON RN 07/31/2023 15:01 * Telephone Encounter - Katarina Fitzgerald - 07/31/2023 1435 EDT Medication(s) Requested: ondansetrone Preferred Pharmacy: [facility] Is patient out of medication? Yes Last Refill Date: 06/01/2023 Last Visit Date with Ordering Provider: 07/13/2023 Next Non-Acute Visit Date Scheduled with Care Team: Yes. Katarina Fitzgerald 07/31/2023 14:35 documented in this encounter Plan of Treatment Upcoming Encounters Date Type Department Care Team (Late st Contact Info) Description 01/04/2025 13:00 EST Office Visit [facility] Ophthalmology - [address] [phone] Gagandeep Rome MD [address] [place] [address], [facility] 5 [place] [phone] 02/11/2025 13:30 EDT Telemedicine [facility] Hematology & Oncology [address] [phone] Dana Padilla MD [address] [place] [address] 2 [place] [address] documented as of this encounter Visit Diagnoses Not on filedocumented in this encounter Discontinued Medications Medication Sig Discontinue Reason Start Date End Da te ondansetron (ZOFRAN) 4 mg tablet TAKE 1 TABLET BY MOUTH EVERY 8 HOURS NEEDED FOR NAUSEA 06/01/2023 07/31/2023 documented as of this encounter Care Teams Research Program Manager Relationship Specialty Start Date End Date Emigdio Veronica MD 2 [place] [address] PCP - General Internal Medicine - Primary Care 05/22/20 02/21/24 Izabella Snowden, [facility] 1 [facility], 3rd [place] [address] Thread Spinner 02/21/23 05/03/24 documented as of this encounter
--- OUTSIDE RECORDS SUMMARY | 2024-11-22 16:54 | XMS_ITS | Encounter Summary ---
Author Organization [facility] Address [address] [place] [address] Care Team Providers Care Argon Tester Name Role Phone Emigdio Veronica MD Primary Care Provider + Izabella Snowden [facility] Unavailable [phone] Reason for Visit * Reason Comments Health Assistance Program Encounter Details Date Type Department Care Team (Late st Contact Info) Description 07/07/2023 Community Health Team [address], [facility] [address] [place] [address] 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 Branch Lending Officer (RC) called patient to follow-up on completing housing applications and left a voicemail Plan / Action Items: ?? If RC doesn't hear back from the patient no additional attempts will be made, but RC support always remains available. Lucie Yao 07/07/23 13:34 documented in this encounter Plan of Treatment Upcoming Encounters Date Type Department Care Team (Late st Contact Info) Description 01/04/2025 13:00 EST Office Visit [facility] Ophthalmology [address] [phone] Gagandeep Rome MD [address] [place] [address], [facility] 5 [place] [address] 02/11/2025 13:30 EDT Telemedicine [facility] Hematology & Oncology [address] [phone] Dana Padilla MD [address] [place] [address], [facility] 2 [place] [phone] documented as of this encounter Visit Diagnoses Not on filedocumented in this encounter Care Teams Argon Tester Relationship Specialty Start Date End Date Emigdio Veronica MD 2 [place] [phone] PCP - General Internal Medicine - Primary Care 05/22/20 02/21/24 Izabella Snowden, [facility] 1 [facility], 3rd [place] [address] Flame Cutting Machine Operator Helper 02/21/23 05/03/24 documented as of this encounter
--- OUTSIDE RECORDS SUMMARY | 2024-11-22 16:54 | XMS_ITS | Encounter Summary ---
Author Organization 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 [...] Assessment Author No 04/29/2023 11:26 EDT Franca Marquze RN * Because of a physical, mental, [...] Info) Description 01/04/2025 13:00 EST Office Visit [facility] Ophthalmology - [address] [phone] Gagandeep Rome MD [address] [place] [address], [facility] 5 [place] [phone] 02/11/2025 13:30 EDT Telemedicine [facility] Hematology & Oncology - [address] [phone] Dana Padilla MD [address] [place] [address], [facility] 2 [place] [address] documented as of this encounter Visit Diagnoses Not on filedocumented in this encounter Care Teams Stress Analyst Relationship Specialty Start Date End Date Emigdio Veronica MD 2 [place] [address] PCP - General Internal Medicine - Primary Care 05/22/20 02/21/24 Izabella Snowden, PERSONNEL REPRESENTATIVE 1 [facility], 3rd [place] [address] Winch Runner 02/21/23 05/03/24 documented as of this encounter
--- OUTSIDE RECORDS SUMMARY | 2024-11-22 16:54 | XMS_ITS | Encounter Summary ---
Author Organization [facility] Address [address] [place] [address] Care Team Providers Care Nurse Anesthetist Name Role Phone Emigdio Veronica MD Primary Care Provider + Izabella Snowden [facility] Unavailable [phone] Reason for Visit * Reason Onset Date Comments Medications Refill 07/01/2023 Encounter Details Date Type Department Care Team (Late st Contact Info) Description 07/01/2023 Refill [facility] Adult Primary Care - [place] [address] [place], [place] [id number] Emigdio Veronica MD [address] [place] [address] Medications Refill Social History Tobacco [...] 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 Daily Max: 15 mg 84 Tablet 07/05/2023 07/15/2023 documented in this encounter Miscellaneous Notes * Telephone Encounter - Alexander Iglesias - 07/01/2023 0950 EDT Due 07/05, dated pended script. ALEXANDER IGLESIAS RN 07/01/2023 9:50 * Telephone Encounter - Cynthia Haung - 07/01/2023 0811 EDT Requested Prescriptions Pending Prescriptions Disp Refills ??? oxyCODONE (ROXICODONE) 5 mg immediate release tablet 84 Tablet 0 Sig: Take 1 Tablet by mouth 3 times daily as needed for up to 28 days for Pain. Daily Max: 15 mg [facility]/pharmacy #[id number] - [address] Confirmed Pharmacy? Yes Patient out of medication? No Last Refill Date: 06/07/23 Refills left? (explain exceptions requiring early refill) No Recent Visits Date Type Provider Dept 06/29/23 Office Visit Scottie Campuzano PA-C [facility] Adult Prim Care 06/10/23 Office Visit Emigdio Veronica III, MD [facility] Adult Prim Care 05/26/23 Office Visit Scottie Campuzano PA-C [facility] Adult Prim Care 05/05/23 Office Visit Emigdio Veronica III, MD [facility] Adult Prim Care 04/26/23 Office Visit Scottie Campuzano PA-C [facility] Adult Prim Care 03/15/23 Office Visit Emigdio Veronica III, MD [facility] Adult Prim Care 02/24/23 Office Visit Scottie Campuzano PA-C [facility] Adult Prim Care 02/16/23 Office Visit Scottie Campuzano PA-C [facility] Adult Prim Care 01/21/23 Office Visit Emigdio Veronica III, MD [facility] Adult Prim Care 01/05/23 Office Visit Emigdio Veronica III, MD [facility] Adult Prim Care Showing recent visits within past 540 days with a meds authorizing provider and meeting all other requirements Future Appointments Date Type Provider Dept 07/13/23 Appointment Emigdio Veronica III, MD [facility] Adult Prim Care Showing future appointments within next 150 days with a meds authorizing provider and meeting all other requirements Future appointment: Already Scheduled Cynthia Huang 07/01/2023 8:12 documented in this encounter Plan of Treatment Upcoming Encounters Date Type Department Care Team (Late st Contact Info) Description 01/04/2025 13:00 EST Office Visit [facility] Ophthalmology - [address] [phone] Gagandeep Rome MD [address] [place] [address], [facility] [address] [place] [phone] 02/11/2025 13:30 EDT Telemedicine [facility] Hematology & Oncology [address] [address] Dana Padilla MD [address] [place] [address], Level [address] [place] [phone] documented as of this encounter Visit Diagnoses Not on filedocumented in this encounter Discontinued Medications Medication Sig Discontinue Reason Start Date End Da te oxyCODONE (ROXICODONE) 5 mg immediate release tablet Take 1 Tablet by mouth 3 times daily as needed for up to 28 days for Pain. Daily Max: 15 mg Reorder 06/07/2023 07/01/2023 documented as of this encounter Care Teams Nurse Anesthetist Relationship Specialty Start Date End Date Emigdio Veronica MD [address] [place] [address] PCP - General Internal Medicine - Primary Care 05/22/20 02/21/24 Izabella Snowden, [facility] 1 [facility], 3rd [place] [address] Caul Fat Puller 02/21/23 05/03/24 documented as of this encounter
--- OUTSIDE RECORDS SUMMARY | 2024-11-22 16:54 | XMS_ITS | Encounter Summary ---
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 Not [...] Visit [facility] Ophthalmology - [address] [phone] Gagandeep Rome MD [address] [place] [address] 5 [place] [address] 02/11/2025 13:30 EDT Telemedicine [facility] [place] Hematology & Oncology [address] [phone] Dana Padilla MD [address] [place] [address], [facility] [address] [place] [phone] documented as of this encounter Procedures Procedure Name Priority Date/Time Associated Diagnosis Comments BASIC METABOLIC PANEL (BMP) Routine 08/05/2023 13:59 EDT Hypokalemia documented in this encounter Results * (ABNORMAL) BASIC METABOLIC PANEL (BMP) (08/05/2023 13:59 EDT) Sodium 137 136 - 145 mmol/L 08/05/2023 15:18 EDT [facility] Potassium 4.4 3.5 - 5.0 mmol/L 08/05/2023 15:18 EDT [facility] Chloride 101 96 - 110 mmol/L 08/05/2023 15:18 EDT [facility] CO2 Total 26 22 - 32 mmol/L 08/05/2023 15:18 EDT [facility] Anion Gap 10 5 - 14 mmol/L 08/05/2023 15:18 EDT [facility] Glucose 88 70 - 99 mg/dl 08/05/2023 15:18 EDT [facility] Calcium 9.1 8.5 - 10.5 mg/dL 08/05/2023 15:18 EDT [facility] BUN 16 10 - 26 mg/dL 08/05/2023 15:18 T [facility] Creatinine 1.27(H) 0.52 - 1.04 mg/dL 08/05/2023 15:18 T [facility] eGFR 48(L) >60 mL/min/1.73 m2 08/05/2023 15:18 T [facility] Blood VENOUS BLOOD / Unknown Venipuncture / Unknown 08/05/2023 13:59 EDT 08/05/2023 14:00 EDT us Emigdio Veronica MD CHEMISTRY & BLOOD GAS OR DERABLES Final Result Performing Organization Address City/State/[facility] Co de Phone Number [facility] [address] [place] [address] documented in this encounter Visit Diagnoses Diagnosis Hypokalemia Hypopotassemia documented in this encounter Care Teams Methods Analyst Relationship Specialty Start Date End Date Emigdio Veronica MD [address] [place] [address] PCP - General Internal Medicine - Primary Care 05/22/20 02/21/24 Izabella Snowden, DARNELL 1 [facility], [address] [place] [address] Broach Setter 02/21/23 05/03/24 documented as of this encounter
--- OUTSIDE RECORDS SUMMARY | 2024-11-22 16:54 | XMS_ITS | Encounter Summary ---
Author Organization [facility] Address [address] [place] [address] Care Team Providers Care Bpo Specialist Name Role Phone Emigdio Veronica MD Primary Care Provider + Izabella Snowden [facility] Unavailable [phone] Reason for Visit * Reason Onset Date Comments Flank Pain 08/17/2023 Fever, vomiting, on top of being ill with congestion and cough Encounter Details Date Type Department Care Team (Late st Contact Info) Description 08/17/2023 Telephone [facility] Adult Primary Care - [place] [address] [place] [address] Emigdio Veronica MD [address] [place] [address] Flank Pain (Fever, vomiting, on top of being ill with congestion and cough ) Social History Tobacco Use Types Packs/Day [...] 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 Intermittent fevers with a T max of 101. And hematuria. Nausea and vomiting. She reports a history of kidney stones and believes she has a kidney stone. She denies dysuria or shaking chills. Advised patient present to the ED given concern for fever and level of flank pain. Patient will have her son drive her this afternoon and if worsening symptoms call for 911. The patient indicates understanding of these issuesand agrees with the plan. No barriers. Report given to Betzaida at [facility] ED. * Telephone Encounter - Marily Willis - 08/17/2023 1009 EDT Patient calling back to reschedule appt she had scheduled with Dr. Veronica today. Patient was expressing flank pain, temp, and vomiting and feels she might be having a kidney stone.I did ask her to be on stand by for a phone call incase you rather her be seen at urgent care or ERfor urine sample testing and imaging instead of coming into the office today with Oni Ashton At 3:45. Marily Willis 08/17/2023 10:11 documented in this encounter Plan of Treatment Upcoming Encounters Date Type Department Care Team (Late st Contact Info) Description 01/04/2025 13:00 EST Office Visit [facility] Ophthalmology - [address] [phone] Gagandeep Rome MD [address] [place] [address] 5 [place] [phone] 02/11/2025 13:30 EDT Telemedicine [facility] Hematology & Oncology [address] [phone] Dana Padilla MD [address] [place] [address] 2 [place] [phone] documented as of this encounter Visit Diagnoses Not on filedocumented in this encounter Care Teams Bpo Specialist Relationship Specialty Start Date End Date Emigdio Veronica MD [address] [place] [address] PCP - General Internal Medicine - Primary Care 05/22/20 02/21/24 Izabella Snowden, SENIOR PHP DEVELOPER 1 [facility], [address]rd [place] [address] Karate Instructor 02/21/23 05/03/24 documented as of this encounter
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
--- OUTSIDE RECORDS SUMMARY | 2024-11-22 16:55 | XMS_ITS | Encounter Summary ---
Author Organization [facility] Address [address] [place] [address] Care Team Providers Care Box Sealing Machine Operator Name Role Phone Emigdio Veronica MD Primary Care Provider + Izabella Snowden [facility] [phone] Reason for Visit * Reason Comments Health Assistance Program Encounter Details Date Type Department Care Team (Late st Contact Info) Description 05/10/2023 Community Health Team [address], [facility] [address] [place] [address] [facility], Health Assistance Program [address] [place] [id number] Social History Tobacco Use Types Packs/Day Years Used Date Smoking Tobacco: Some Days Cigarettes 0.3 35 Smokeless Tobacco: Never Comments:smokes couple times a week Alcohol Use [...] 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 No / Unsure 04/28/2023 21:31 EDT documented as of this encounter Functional Status [...] No 04/29/2023 11:26 EDFranca Meier RN * Do you have difficulty dressing [...] encounter Progress Notes * Lucie Yao - 05/10/2023 1303 EDT ..[facility] Incising Machine Operator Date: 05/10/23 Referred by: DARNELL Conteh EA PCP: Emigdio Veronica III Encounter type: Phone Reason for Referral: Housing Notes: ?? Incising Machine Operator (RC) called patient for a scheduled appointment at 1:00pm to complete housing applications. RC left a voicemail for patient to call RC back at [phone]. Plan / Action Items: ?? RC will follow-up with patient within 5 to 7 days. Lucie Yao 05/10/23 13:03 documented in this encounter Plan of Treatment Upcoming Encounters Date Type Department Care Team (Late st Contact Info) Description 01/04/2025 13:00 EST Office Visit [facility] Ophthalmology - [address] [address] Gagandeep Rome MD [address] [place] [address], [address] [place] [phone] 02/11/2025 13:30 EDT Telemedicine [facility] Hematology & Oncology - [facility] [address] [place], [place] [phone] Dana Padilla MD [address] [facility], [address] [place] [address] documented as of this encounter Visit Diagnoses Not on filedocumented in this encounter Care Teams Box Sealing Machine Operator Relationship Specialty Start Date End Date Emigdio Veronica MD [address] [place] [phone] PCP - General Internal Medicine - Primary Care 05/22/20 02/21/24 Izabella Snowden, MANAGER OF INVESTIGATIONS 1 [facility], 3rd [place] [phone] Perioperative Nurse 02/21/23 05/03/24 documented as of this encounter
--- OUTSIDE RECORDS SUMMARY | 2024-11-22 16:55 | XMS_ITS | Encounter Summary ---
Author Organization [facility] Address [address] [place] [address] Care Team Providers Care Group Home Counselor Name Role Phone Emigdio Veronica MD Primary Care Provider + Izabella Snowden [facility] Unavailable None, Provider Primary Care Provider Gabriel Wei Primary Care Provider Mirna Guerrero Primary Care Provider + Reason for Visit * Reason Onset Date Comments Other 05/05/2023 FYI message to Wilian Veronica Encounter Details Date Type Department Care Team (Late st Contact Info) Description 05/05/2023 Telephone [facility] Adult Primary Care - [place] [address] [place] [address] Emigdio Veronica MD [address] [place] [address] Other (FYI message to Dr. 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 Veronica: Patient calling to report she is going to leave 05.10 to go to her daughters and stay for a few weeks. She wants to make sure she has all her medications before leaving. She wanted to let you know. documented in this encounter Plan of Treatment Upcoming Encounters Date Type Department Care Team (Late st Contact Info) Description 01/04/2025 13:00 EST Office Visit [facility] Ophthalmology - [address] [address] Gagandeep Rome MD [address] [place] [address], [address] [place] [phone] 02/11/2025 13:30 EDT Telemedicine [facility] Hematology & Oncology - [facility] [address] [place], [place] [phone] Dana Padilla MD 111 [facility], [address] [place] [address] documented as of this encounter Visit Diagnoses Not on filedocumented in this encounter Additional Health Concerns Infection Onset Date Last Indicated Resolved Time R/O COVID-19 09/07/2023 09/07/2023 09/07/2023 22:1 6 EDT documented as of this encounter Care Teams Group Home Counselor Relationship Specialty Start Date End Date Emigdio Veronica MD [address] [place] [phone] PCP - General Internal Medicine - Primary Care 05/22/20 02/21/24 None, Provider PCP - General 02/24/24 03/18/24 Gabriel Gandara PA PCP - General 03/19/24 09/11/24 Mirna Guerrero PA [address] [place] [address] PCP - General 09/12/24 Izabella Snowden LICSW 1 [facility], 3rd [place] [phone] Camera Mechanic 02/21/23 05/03/24 documented as of this encounter
--- OUTSIDE RECORDS SUMMARY | 2024-11-22 16:55 | XMS_ITS | Encounter Summary ---
Author Organization [facility] Address [address] [place] [address] Care Team Providers Care Contract Administration Coordinator Name Role Phone Emigdio Veronica MD Primary Care Provider + Izabella Snowden [facility] [phone] Reason for Visit * Reason Onset Date Comments Bleeding/Bruising 06/27/2023 Encounter Details Date Type Department Care Team (Late st Contact Info) Description 06/27/2023 Telephone [facility] Adult Primary Care - [place] [address] [place], [place] [phone] Emigdio Veronica MD [address] [place] [address] Bleeding/Bruising Social History Tobacco Use Types Packs/Day [...] 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 * Telephone Encounter - Emigdio Veronica III, MD - 06/27/2023 1659 EDT Bruising likely secondary to history of thrombocytopenia, CBC recently checked 8 days ago and PLT appeared at baseline. Given asymptomatic status would monitor bruise for now, can apply cold compresses if painful and throbbing. If bruise becomes significantly more painful would recommend acute evaluation. * Telephone Encounter - Sharon Joseph RN - 06/27/2023 1635 EDT Pt states that she has a huge bruise on her stomach the size of a coffee can and Bruising throughout legs. Pt states she doesn't even know how she got it. Pt noticed this this weekend. No bleeding in stool or urine that she is aware of. Recommendations? * Telephone Encounter - Zully Guerrier - 06/27/2023 1613 EDT Reason for Call: Bleeding/Bruising- FYI Summary/Symptoms:Legs and stomach Onset and Duration: over the weekend. Patient is on blood thinners Does the patient have a computer, laptop or smart phone with high speed & video capability? No If so, would they be interested in doing a video visit via [employer]? No Appointment Offered? YES, I have scheduled the patient with Scottie Campuzano on Tuesday morning and just wanted to let Triage know, incase they want to have pt seen sooner, as pt is on blood thinners and the bruising has been occurring since the weekend Zully Guerrier 06/27/2023 16:13 documented in this encounter Plan of Treatment Upcoming Encounters Date Type Department Care Team (Late st Contact Info) Description 01/04/2025 13:00 EST Office Visit [facility] Ophthalmology - [address] [phone] Gagandeep Rome MD [address] [place] [address], [facility] [address] [place] [address] 02/11/2025 13:[address] [facility] Hematology & Oncology - [address] [phone] Dana Padilla MD [address] [place] [address], [address] [place] [address] documented as of this encounter Visit Diagnoses Not on filedocumented in this encounter Care Teams Contract Administration Coordinator Relationship Specialty Start Date End Date Emigdio Veronica MD [address] [place] [phone] PCP - General Internal Medicine - Primary Care 05/22/20 02/21/24 Izabella Snowden, SENIOR INSIGHT MANAGER 1 [facility], 3rd [place] [address] Trail Construction Worker 02/21/23 05/03/24 documented as of this encounter
--- OUTSIDE RECORDS SUMMARY | 2024-11-22 16:55 | XMS_ITS | Encounter Summary ---
Author Organization [facility] Address [address] [place] [address] Care Team Providers Care Weave Room Supervisor Name Role Phone Emigdio Veronica MD Primary Care Provider + Izabella Snowden [facility] Reason for Visit * Reason Comments Health Assistance Program Encounter Details Date Type Department Care Team (Late st Contact Info) Description 05/05/2023 Community Health Team [address], [facility] [address] [place] [address] [facility], Health Assistance Program [address] [place] [address] Social History Tobacco Use Types Packs/Day Years [...] 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 Marketing Support Coordinator called patient to follow-up on housing needs. ?? Patient was not feeling up to a call and requested to schedule a phone appointment. ?? RC scheduled a phone appointment with patient for 05/10/23 at 1:00pm. Plan / Action Items: ?? RC will call patient on 05/10/23 for scheduled phone appointment. Lucie Yao 05/05/23 14:13 documented in this encounter Plan of Treatment Upcoming Encounters Date Type Department Care Team (Late st Contact Info) Description 01/04/2025 13:00 EST Office Visit [facility] Ophthalmology - [address] [phone] Gagandeep Rome MD [address] [place] [address], [address] [place] [address] 02/11/2025 13:30 EDT Telemedicine [facility] Hematology & Oncology - [facility] [address] [place], [place] [phone] Dana Padilla MD 111 [facility] [facility], [facility], [address] [place] [phone] documented as of this encounter Visit Diagnoses Not on filedocumented in this encounter Care Teams Weave Room Supervisor Relationship Specialty Start Date End Date Emigdio Veronica MD [address] [place] [address] PCP - General Internal Medicine - Primary Care 05/22/20 02/21/24 Izabella Snowden, [facility] 1 [facility], [facility], [address] [place] [address] [employer] 02/21/23 05/03/24 documented as of this encounter
--- OUTSIDE RECORDS SUMMARY | 2024-11-22 16:55 | XMS_ITS | Encounter Summary ---
Author Organization [facility] Address [address] [place] [address] Care Team Providers Care Acls Specialist Name Role Phone Emigdio Veronica MD Primary Care Provider + Izabella Snowden [facility] Reason for Visit * Reason Onset Date Comments Insomnia 06/20/2023 Leg Cramps (Night) 06/20/2023 Encounter Details Date Type Department Care Team (Late st Contact Info) Description 06/20/2023 Telephone [facility] Adult Primary Care - [place] [address] [place] [address] Emigdio Veronica MD [address] [place] [address] Insomnia; Leg Cramps (Night) Social History Tobacco Use Types Packs/Day Years [...] 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 30 Tablet 1 06/20/2023 06/29/2023 documented in this encounter Miscellaneous Notes * Telephone Encounter - Sharon Joseph RN - 06/27/2023 1643 EDT The patient indicates understanding of these issues and agrees with the plan. Pt is interested In medication assistance program given website listed below as well * Telephone Encounter - Sharon Joseph RN - 06/24/2023 0912 EDT 06/24/2023 * Telephone Encounter - Sharon Joseph RN - 06/20/2023 1328 EDT Lm 06/20/2023 * Telephone Encounter - Emigdio Veronica III, MD - 06/20/2023 1302 EDT Disappointing. Patient is already on trazodone with limited effect. I would not recommend belasomradue to risk for dependence and risks for respiratory depression when combined with opiates. I'm not sure what the costs of doxepin are for the patient. If it is affordable she can of course take it. If it is unaffordable we can look into the medication assistance program or she could look into the website [employer] that often offers medications at cheaper prices. Another option is to see if doxepin at 10 mg is cheaper then 6 mg at her local pharmacy. Although the recommended dose of doxepin for insomnia is 6 mg nightly if 10 mg is cheaper we could try 10 mg capsules as an alternative. * Telephone Encounter - Noemi Hall - 06/20/2023 1155 EDT Received call from pharmacy. This medication is not covered by insurance. Trazadone, belsomra wouldbe covered * Telephone Encounter - Emigdio Veronica III, MD - 06/20/2023 1122 EDT We can try doxepin. It should not be used with trazodone. This would in effect be an alternatie sleep aid. Again I would heavily recommend working with her medical supplier and sleep medicine office on initiating CPAP or another HUEY therapy as her sleep will not feel restorative without appropriate treatment of her HUEY. Doxepin signed. Trazodone d/c'd I would recommend starting over the counter magnesium oxide 400 mg daily for her leg cramps. * Telephone Encounter - Sharon Joseph RN - 06/20/2023 0950 EDT Pt states that she can not sleep, has not slept for 5 days. Pt is asking about a prescription of doxepin. Pt states that last night She was experiencing leg cramping states that from the knee down on both legs is a bluish blackish color and they are uses a wedge pillow to elevate her legs. States that the color of her legs comes and goes. Pain in both of the calves if you touch it painful all the time. Pt states it has been like this for a while. Gets cramping in inner thighs as well. But pt states that this is not what has been keeping her up she just can not sleep * Telephone Encounter - Noemi Hall - 06/20/2023 0912 EDT Reason for Call: Insomnia and Leg Cramps (Night) Summary/Symptoms: patient states she has not been able to sleep at all for 5 days. Is incredibly tired and not sure what to do. Also having major leg cramping though the night. States that she has talked to Dr Veronica about changing her sleep meds Onset and Duration: 5 days Does the patient have a computer, laptop or smart phone with high speed & video capability? N/A If so, would they be interested in doing a video visit via [employer]? N/A Appointment Offered? No Noemi Hall 06/20/2023 9:12 documented in this encounter Plan of Treatment Upcoming Encounters Date Type Department Care Team (Late st Contact Info) Description 01/04/2025 13:00 EST Office Visit [facility] Ophthalmology [address] [phone] Gagandeep Rome MD [address] [place] [address], [address] [place] [address] 02/11/2025 13:30 EDT Telemedicine [facility] Hematology & Oncology [address] [phone] Dana Padilla MD 111 [facility], [address] [place] [phone] documented as of this encounter Visit Diagnoses Not on filedocumented in this encounter Discontinued Medications Medication Sig Discontinue Reason Start Date End Da te traZODone (DESYREL) 100 mg tablet Take 2 Tablets by mouth at bedtime. Alternate therapy 06/20/2023 documented as of this encounter Care Teams Acls Specialist Relationship Specialty Start Date End Date Emigdio Veronica MD [address] [place] [phone] PCP - General Internal Medicine - Primary Care 05/22/20 02/21/24 Izabella Snowden, [facility] 1 [facility], 3rd [place] [phone] Cross Enterprise Integrator 02/21/23 05/03/24 documented as of this encounter
--- OUTSIDE RECORDS SUMMARY | 2024-11-22 16:55 | XMS_ITS | Encounter Summary ---
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 Patient had also left a message for Dr. Veronica that she will be leaving on 05/10/23 to stay with her daughter for several weeks. Patient hospitalized for 5 days with hematemesis. Hospital discharge notes indicate Clinical Issues Needing Follow-up 1. Pertinent medication changes: - start cefpodoxime 200mg BID x 3 days to complete 10 days course for SBP ppx - stop trazodone 100mg at bedtime - start mirtazapine 7.5mg at bedtime - stop chlorzoxazone due to liver dysfunction (and patient finds it ineffective) - start lidocaine 5% patch ([place] approved at discharge) ?? 2. Recommended follow-up tests/procedures needed: - PCP follow-up for hospital discharge ?? 3. Anticoagulation on discharge: Yes - continuation of prior to admission therapy WITHOUT changes Indication(s): VTE treatment Medication: heparin or low molecular weight heparin ALONE (enter details): paulinonox 60mg daily PLAN: CM will follow up with patient in 2 weeks. DARNELL MCCORMICK 05/06/2023 12:28 documented in this encounter Plan of Treatment Upcoming Encounters Date Type Department Care Team (Late st Contact Info) Description 01/04/2025 13:00 EST Office Visit [facility] Ophthalmology - [address] [phone] Gagandeep Rome MD [address] [place] [address] 5 [place] [phone] 02/11/2025 13:30 EDT Telemedicine [email or web address] Hematology & Oncology [address] [phone] Dana Padilla MD [address] [place] [address], [facility] 2 [place] [phone] documented as of this encounter Visit Diagnoses Not on filedocumented in this encounter Care Teams Planishing Hammer Operator Relationship Specialty Start Date End Date Emigdio Veronica MD 2 [place] [address] PCP - General Internal Medicine - Primary Care 05/22/20 02/21/24 Izabella Snowden LICSW 1 [facility], 3rd [place] [address] Promotions Intern 02/21/23 05/03/24 documented as of this encounter
--- OUTSIDE RECORDS SUMMARY | 2024-11-22 16:55 | XMS_ITS | Encounter Summary ---
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 No answer-CM LVM asking patient to call back. PLAN: LVM for patient-if no response, CM will attempt another outreach next week. DARNELL MCCORMICK 05/31/2023 13:55 documented in this encounter Plan of Treatment Upcoming Encounters Date Type Department Care Team (Late st Contact Info) Description 01/04/2025 13:00 EST Office Visit [facility] Ophthalmology - [address] [phone] Gagandeep Rome MD [address] [place] [address], [facility] 5 [place] [phone] 02/11/2025 13:30 EDT Telemedicine [facility] Hematology & Oncology [address] [phone] Dana Padilla MD [address] [place] [address], [facility] 2 [place] [phone] documented as of this encounter Visit Diagnoses Not on filedocumented in this encounter Care Teams Staffing Associate Relationship Specialty Start Date End Date Emigdio Veronica MD 2 [place] [phone] PCP - General Internal Medicine - Primary Care 05/22/20 02/21/24 Izabella Snowden, [facility] 1 [facility], 3rd [place] [address] Cloth Shrinker 02/21/23 05/03/24 documented as of this encounter
--- OUTSIDE RECORDS SUMMARY | 2024-11-22 16:55 | XMS_ITS | Encounter Summary ---
Author Organization [facility] Address [address] [place] [address] Care Team Providers Care Psychiatrist Name Role Phone Emigdio Veronica MD Primary Care Provider + Izabella Snowden [facility] Unavailable None, Provider Primary Care Provider Gabriel Wei Primary Care Provider Mirna Guerrero Primary Care Provider + Reason for Visit * Reason Comments Medications Refill Encounter Details Date Type Department Care Team (Late st Contact Info) Description 05/29/2023 Refill [facility] Adult Primary Care - [place] [address] [place] [address] Scottie Campuzano PA-C [address] [place] [address] Medications Refill Social History Tobacco [...] 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 90 Tablet 1 05/31/2023 3 documented in this encounter Miscellaneous Notes * Telephone Encounter - Fatoumata Fowler RN - 05/31/2023 1143 EDT Requested Prescriptions Pending Prescriptions Disp Refills ??? furosemide (LASIX) 20 mg tablet [Pharmacy Med Name: FUROSEMIDE 20 MG TABLET] 90 Tablet 1 Sig: TAKE 3 TABLETS EVERY DAY. IF FLUID IN LEGS IS WELL CONTROLLED THEN CUT DOWN TO 2 EVERY DAY. [facility]/pharmacy #[id number] - [place], [place] - [address] Confirmed Pharmacy? Yes Patient out of medication? Unknown Last Refill Date: 04/26/23 Refills left? (explain exceptions requiring early refill) No Recent Visits Date Type Provider Dept 05/26/23 Office Visit Scottie Campuzano PA-C [facility] Adult Prim Care 05/05/23 Office Visit Emigdio Veronica III, MD [facility] Adult Prim Care 04/26/23 Office Visit Scottie Campuzano PA-C [facility] Adult Prim Care 03/15/23 Office Visit Emigdio Veronica III, MD [facility] Adult Prim Care 02/24/23 Office Visit Scottie Campuzano PA-C [facility] Adult Prim Care 02/16/23 Office Visit Scottie Campuzano PA-C [facility] Adult Prim Care 01/21/23 Office Visit Emigdio Veronica III, MD [facility] Adult Prim Care 01/05/23 Office Visit Emigdio Veronica III, MD [facility] Adult Prim Care 12/23/22 Office Visit Emigdio Veronica III, MD [facility] Adult Prim Care 11/25/22 Office Visit Emigdio Veronica III, MD [facility] Adult Prim Care Showing recent visits within past 540 days with a meds authorizing provider and meeting all other requirements Future Appointments Date Type Provider Dept 07/13/23 Appointment Emigdio Veronica III, MD [facility] Adult Prim Care Showing future appointments within next 150 days with a meds authorizing provider and meeting all other requirements Future appointment: Already Scheduled FATOUMATA FOWLER RN 05/31/2023 11:43 documented in this encounter Plan of Treatment Upcoming Encounters Date Type Department Care Team (Late st Contact Info) Description 01/04/2025 13:00 EST Office Visit [facility] Ophthalmology - [address] [phone] Gagandeep Rome MD [address] [place] [address], Level [address] [place] [phone] 02/11/2025 13:30 EDT Telemedicine [facility] Hematology & Oncology [address] [phone] Dana Padilla MD [address] [place] [address], Level [address] [place] [phone] documented as of this encounter Visit Diagnoses Not on filedocumented in this encounter Discontinued Medications Medication Sig Discontinue Reason Start Date End Da te furosemide (LASIX) 20 mg tablet Take 3 every day. If fluid in legs is well controlled then cut down to 2 every day. 04/26/2023 05/31/2023 documented as of this encounter Additional Health Concerns Infection Onset Date Last Indicated Resolved Time R/O COVID-19 09/07/2023 09/07/2023 09/07/2023 22:1 6 EDT documented as of this encounter Care Teams Psychiatrist Relationship Specialty Start Date End Date Emigdio Veronica MD [address] [place] [phone] PCP - General Internal Medicine - Primary Care 05/22/20 02/21/24 None, Provider PCP - General 02/24/24 03/18/24 Gabriel Gandara PA PCP - General 03/19/24 09/11/24 Mirna Guerrero PA [address] [place] [address] PCP - General 09/12/24 Izabella Snowden LICSW 1 [facility], 3rd [place] [phone] Glass Blower 02/21/23 05/03/24 documented as of this encounter
--- OUTSIDE RECORDS SUMMARY | 2024-11-22 16:55 | XMS_ITS | Encounter Summary ---
Author Organization [facility] Address [address] [place] [address] Care Team Providers Care Expert Witness Name Role Phone Emigdio Veronica MD Primary Care Provider + Izabella Snowden [facility] [phone] Reason for Visit * Reason Onset Date Comments Medication Management 05/06/2023 Called jena zazueta to discuss recent discharge from hospital and associated medication changes. Left message for call back Encounter Details Date Type Department Care Team (Late st Contact Info) Description 05/06/2023 Telephone [facility] - [facility] [address] [place] [address] Chema Barnett RPH Medication Management (Called patient to discuss recent discharge from hospital and associated medication changes. 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 Left message for call back. Tien Barnett, Pharm.D. PGY1 Dental Laboratory Worker 05/06/2023 documented in this encounter Plan of Treatment Upcoming Encounters Date Type Department Care Team (Late st Contact Info) Description 01/04/2025 13:00 EST Office Visit [facility] Ophthalmology [address] [phone] Gagandeep Rome MD [address] [place] [address], [address] [place] [address] 02/11/2025 13:30 EDT Telemedicine [facility] Hematology & Oncology [address] [phone] Dana Padilla MD [address] [facility], [facility], [address] [place] [phone] documented as of this encounter Visit Diagnoses Not on filedocumented in this encounter Care Teams Expert Witness Relationship Specialty Start Date End Date Emigdio Veronica MD [address] [place] [address] PCP - General Internal Medicine - Primary Care 05/22/20 02/21/24 Izabella Snowden, [facility] 1 [facility], [address]rd [place] [phone] Senior Net C Developer 02/21/23 05/03/24 documented as of this encounter
--- OUTSIDE RECORDS SUMMARY | 2024-11-22 16:55 | XMS_ITS | Encounter Summary ---
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 Daily Max: 15 mg 84 Tablet 05/10/2023 05/31/2023 documented in this encounter Miscellaneous Notes * Telephone Encounter - Sally Jorge - 05/05/2023 1615 EDT Requested Prescriptions Pending Prescriptions Disp Refills ??? oxyCODONE (ROXICODONE) 5 mg immediate release tablet 84 Tablet 0 Sig: Take 1 Tablet by mouth 3 times daily as needed for up to 28 days for Pain. Daily Max: 15 mg [facility]/pharmacy #[id number] - [place], [place] - [address] Confirmed Pharmacy? Yes Patient out of medication? Unknown Last Refill Date: 04.12.23 Refills left? (explain exceptions requiring early refill) No Recent Visits Date Type Provider Dept 04/26/23 Office Visit Scottie Campuzano PA-C [facility] Adult Prim Care 03/15/23 Office Visit Emigdio Veronica III, MD [facility] [place] Adult Prim Care 02/24/23 Office Visit Scottie Campuzano PA-C [facility] [place] Adult Prim Care 02/16/23 Office Visit Scottie Campuzano PA-C [facility] [place] Adult Prim Care 01/21/23 Office Visit Emigdio Veronica III, MD [facility] Adult [facility] 01/05/23 Office Visit Emigdio Veronica III, MD [facility] Adult Prim Care 12/23/22 Office Visit Emigdio Veronica III, MD [facility] Adult Prim Care 11/25/22 Office Visit Emigdio Veronica III, MD [facility] [place] Adult Prim Care 09/29/22 Office Visit Emigdio Veronica III, MD [facility] Adult Prim Care 09/17/22 Office Visit Emigdio Veronica III, MD [facility] Adult Prim Care Showing recent visits within past 540 days with a meds authorizing provider and meeting all other requirements Today's Visits Date Type Provider Dept 05/05/23 Office Visit Emigdio Veronica III, MD [facility] Adult Prim Care Showing today's visits with a meds authorizing provider and meeting all other requirements Future Appointments Date Type Provider Dept 06/17/23 Appointment Emigdio Veronica III, MD [facility] Adult Prim Care Showing future appointments within next 150 days with a meds authorizing provider and meeting all other requirements Future appointment: Other saw Dr. Veronica today Sally Jorge 05/05/2023 16:15 documented in this encounter Plan of Treatment Upcoming Encounters Date Type Department Care Team (Late st Contact Info) Description 01/04/2025 13:00 EST Office Visit [facility] Ophthalmology - [address] [phone] Gagandeep Rome MD [address] [place] [address], [address] [place] [phone] 02/11/2025 13:30 EDT Telemedicine [facility] Hematology & Oncology [address] [place] [address] Dana Padilla MD [address] [facility], [facility], [address] [place] [phone] documented as of this encounter Visit Diagnoses Not on filedocumented in this encounter Discontinued Medications Medication Sig Discontinue Reason Start Date End Da te oxyCODONE (ROXICODONE) 5 mg immediate release tablet Take 1 Tablet by mouth 3 times daily as needed for up to 28 days for Pain. Daily Max: 15 mg Reorder 04/12/2023 05/05/2023 documented as of this encounter Care Teams Pressure Vessel Inspector Relationship Specialty Start Date End Date Emigdio Veronica MD [address] [place] [phone] PCP - General Internal Medicine - Primary Care 05/22/20 02/21/24 Izabella Snowden, [facility] 1 [facility], 3rd [place] [phone] Help Desk Team Leader 02/21/23 05/03/24 documented as of this encounter
--- OUTSIDE RECORDS SUMMARY | 2024-11-22 16:55 | XMS_ITS | Encounter Summary ---
Author Organization [facility] Address [address] [place] [address] Care Team Providers Care Physical Science Professor Name Role Phone Emigdio Veronica MD Primary Care Provider + Izabella Snowden [facility] Unavailable [phone] Encounter Details Date Type Department Care Team (Late st Contact Info) Description 06/20/2023 14:15 EDT Phlebotomy Only [facility] ED Center 2 Phlebotomy [address] [place], [place] [phone] Electrical Engineering Drafting Officer, 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 Ophthalmology - [address] [phone] Gagandeep Rome MD [address] [place] [address], [facility] 5 [place] [address] 02/11/2025 13:30 EDT Telemedicine [facility] Hematology & Oncology - [address] [phone] Dana Padilla MD [address] [place] [address], [facility] 2 [place] [phone] documented as of this encounter Procedures Procedure Name Priority Date/Time Associated Diagnosis Comments URINE CHEMICAL (DIP) & SEDIMENT (MICRO) WITH REFLEX TO CULTURE Routine 06/20/2023 14:26 EDT Nausea and vomiting, unspecified vomiting type COMPLETE BLOOD COUNT AND DIFFERENTIAL Routine 06/20/2023 14:26 EDT Nausea and vomiting, unspecified vomiting type documented in this encounter Results * (ABNORMAL) URINE CHEMICAL (DIP) & SEDIMENT (MICRO) WITH REFLEX TO CULTURE (06/20/2023 14:26 EDT) Color UA Yellow Colorless, Yellow 06/20/2023 15:12 [facility] Clarity UA Clear Clear 06/20/2023 15:12 [facility] Glucose UA Negative Negative mg/dL 06/20/2023 15:12 [facility] Bilirubin UA Negative Negative 06/20/2023 15:12 [facility] Ketones UA Negative Negative 06/20/2023 15:12 [facility] Specific Cash, Urine 1.013 1.001 - 1.035 06/20/2023 15:12 [facility] Blood UA 1+(A) Negative 06/20/2023 15:12 [facility] Urobilinogen UA Normal Normal mg/dL 023 15:12 [facility] Nitrite UA Negative Negative 06/20/2023 15:12 [facility] Leukocyte Esterase UA Negative Negative 06/20/2023 15:12 [facility] Protein UA Negative Negative mg/dL 06/20/2023 15:12 [facility] pH, UA 5.5 4.6 - 8.0 06/20/2023 15:12 [facility] Urine RBC Count, Auto 3 - 10(A) 0 - 2 Cells/HPF 06/20/2023 15:12 [facility] Urine WBC Count, Auto 0 - 3 0 - 3 Cells/HPF 06/20/2023 15:12 [facility] Urine Squamous Count, Auto Few(A) None Seen Cells/HPF 06/20/2023 15:12 [facility] Urine Hyaline Cast Count, Auto <=10 <=10 Casts/LPF 06/20/2023 15:12 [facility] Urine Bacteria Count, Auto None Seen None Seen Bacteria/HPF 06/20/2023 15:12 [facility] Urine URINE SPECIMEN COLLECTION, CLEAN CATCH / Unknown Urine Collect / Unknown 06/20/2023 14:26 ED 06/20/2023 15:02 [facility] - 06/20/2023 15:12 EDT NOTE: Reflex to Urine Culture test is not indicated based on Urine Sediment Analysis results. Urine Sediment Analysis results are unreliable on urines that are unrefrigerated for >2 hrs or refrigerated >8 hrs. Scottie Campuzano PA-C URINALYSIS OR DERABLES Final Result [facility] [address] [place] [address] * (ABNORMAL) COMPLETE BLOOD COUNT AND DIFFERENTIAL (06/20/2023 14:26 EDT) WBC 4.13 4.00 - 12.40 K/cmm 06/20/2023 15:37 [facility] RBC 4.20 3.86 - 5.04 M/cmm 06/20/2023 15:37 [facility] Hemoglobin 12.7 11.6 - 15.2 g/dL 06/20/2023 15:37 [facility] HCT 37.7 34.9 - 44.4 % 06/20/2023 15:37 [facility] MCV 90 81 - 98 fL 06/20/2023 15:37 [facility] MCH 30.2 26.7 - 33.3 pg 06/20/2023 15:37 [facility] MCHC 33.7 32.1 - 35.9 g/dL 06/20/2023 15:37 [facility] RDW-CV 14.1 <14.7 % 06/20/2023 15:37 [facility] RDW-SD 45.7 <50.4 fl 06/20/2023 15:37 [facility] PLT 89(L) 141 - 377 K/cmm 06/20/2023 15:37 [facility] MPV 10.5 9.5 - 12.7 fL 06/20/2023 15:37 [facility] % Neutrophils 75.8 % 06/20/2023 15:37 [facility] % Lymphocytes 11.6 % 06/20/2023 15:37 [facility] % Monocytes 10.4 % 06/20/2023 15:37 [facility] % Eosinophils 1.5 % 06/20/2023 15:37 [facility] % Basophils 0.5 % 06/20/2023 15:37 [facility] % Immature Grans 0.2 % 06/20/20 15:37 [facility] Absolute Neutrophils 3.13 2.20 - 8.85 K/cmm 06/20/2023 15:37 [facility] Absolute Lymphocytes 0.48(L) 1.09 - 3.30 K/cmm 06/20/2023 15:37 [facility] Absolute Monocytes 0.43 0.10 - 0.80 K/cmm 06/20/2023 15:37 [facility] Absolute Eosinophils 0.06 0.03 - 0.61 K/cmm 06/20/2023 15:37 [facility] ABS Basophils 0.02 0.01 - 0.11 K/cmm 06/20/2023 15:37 [facility] Absolute Immature Grans 0.01 0.00 - 0.06 K/cmm 06/20/2023 15:37 [facility] Type of Differential: Auto 06/20/2023 15:37 [facility] Blood VENOUS BLOOD / Unknown Venipuncture / Unknown 06/20/2023 14:26 EDT 06/20/2023 15:19 EDT Scottie Campuzano PA-C PACKAGES & DN A PROBE ORDERABLES Final Result [facility] [address] [place] [address] documented in this encounter Visit Diagnoses Diagnosis Thrombocytopenia (HCC-CMS) Thrombocytopenia, unspecified Nausea and vomiting, unspecified vomiting type documented in this encounter Care Teams Physical Science Professor Relationship Specialty Start Date End Date Emigdio Veronica MD [address] [place] [phone] PCP - General Internal Medicine - Primary Care 05/22/20 02/21/24 Izabella Snowden, COIN MACHINE ASSEMBLER 1 [facility], [address] [place] [address] Coupon Collection Clerk 02/21/23 05/03/24 documented as of this encounter
--- OUTSIDE RECORDS SUMMARY | 2024-11-22 16:55 | XMS_ITS | Encounter Summary ---
Author Organization [facility] Address [address] [place] [address] Care Team Providers Care Solutions Manager Name Role Phone Emigdio Veronica MD Primary Care Provider + Izabella Snowden [facility] Unavailable [phone] Reason for Visit * Reason Comments Follow-up Encounter Details Date Type Department Care Team (Late st Contact Info) Description 06/20/2023 13:40 EDT Office Visit [email or web address] Hematology & Oncology - [address] [phone] Loraine Hu PA-C [address] [facility], [address] [place] [address] Primary hypercoagulable state (HCC-CMS) (Primary Dx) Social History [...] Record ed How often does anyone, sam emng family, hit, punch or physically hurt you? 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 Not on file Not o n file documented as of this encounter Last Filed Vital Signs Vital Sign Reading Time Taken Comments Blood Pressure 129/67 06/20/2023 1339 EDT Pulse 85 06/20/2023 1339 EDT Temperature 35.9 ??C (96.6 ??F) 06/20/2023 1339 EDT Respiratory Rate 20 06/20/2023 1339 EDT Oxygen Saturation 96% 06/20/2023 1339 EDT Inhaled Oxygen Concentration - - Weight 101.7 kg (224 lb 4.8 oz) 06/20/2023 1339 EDT Height 160 cm (5' 2.99) 06/20/2023 1339 EDT Body Mass Index 39.74 06/20/2023 1339 EDT documented in this encounter [...] * Patient Instructions* Loraine Hu PA-C - 06/20/2023 13:40 EDT Avtar Yun, it was so nice to see you again. As discussed during our visit, my recommendations are as follows: - continue Lovenox 60 mg once daily - try a warm compress for 20 mins after your Lovenox injection - notify us of new bleeding side effects - follow up with Dr. Padilla in 4 months General reminders: Signs and symptoms of DVT [...] symptoms, please seek emergency medical evaluation. Avoid NSAIDs, aspirin while on a blood thinner Any trauma (particularly head trauma) on a blood thinner warrants immediate medical evaluation Feel free to contact me via [email or web address] or call the office if you have any questions/concerns. Thanks, Loraine Hu PA-C documented in this encounter Progress Notes * Loraine Hu PA-C - 06/20/2023 1340 EDT Thrombosis & Hemostasis Program (THP) Follow Up Visit Date of Service: 06/20/2023 Reason for Visit: follow up hypercoagulable state Problem List: Patient Active Problem List Diagnosis ??? Acute pulmonary edema (HCC-CMS) (HCC) Mild interstitial edema noted on chest x-ray, July,. Plan: patient has been notified. Repeat chest x-ray to be done in September 2022. Patient aware. CHENTE Alcantar ??? Stage 3a chronic kidney disease (HCC) ??? Hematemesis, unspecified whether nausea present ??? Hematemesis ??? Chronic insomnia ??? Mixed anxiety and depressive disorder ??? Right foot pain ??? History of bleeding ulcers ??? Superior mesenteric vein thrombosis (HCC-CMS) (HCC) ??? Cirrhosis (HCC-CMS) ??? Chronic respiratory failure with hypoxia (HCC-CMS) (HCC) ??? 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HCC-CMS) (HCC) Done Sep 2021 for thrombocytopenia - covered 70% of the spleen ??? Hypersplenism ??? Fluid overload ??? Frequent falls ??? Secondary hypercoagulable state (HCC-CMS) PVT 2020 [...] resumed lovenox 60 mg/d for prison anticoagulation - April 2023: admitted for hematemesis due to Shahnaz-Quezada tear. Lovenox 60 mg daily continued ??? COPD (chronic obstructive pulmonary disease) (HCC-CMS) (HCC) ??? Left ureteral stone ??? HUEY (obstructive sleep apnea) ??? Partial small bowel obstruction (HCC-CMS) (HCC) ??? Other cirrhosis of liver (HCC-CMS) -NAFLD related cirrhosis with history of decompensation, chronic portal htn, hepatic encephalopathy, small esophageal varices on EGD in 2018, thrombocytopenia/hypersplenism, portal gastropathy -s/p partial splenic embolization (09/28/21) -portal vein thrombosis -Hep C Past provider: Dr. Ijeoma Smith, GI Department in [facility] for long-standing decompensated liver cirrhosis ??? Obesity, Class II, BMI 35-39.9 Lost about 80 lbs over last 2 years - weight was as high at 250-60 ??? Hypothyroidism ??? Chronic pain syndrome Intolerant of Lyrica, Robaxin. Reportedly unable to take acetaminophen due to thrombocytopenia history. Unable to take NSAIDs due to renal insufficiency history. ??? Splenic vein thrombosis ??? Drug-seeking behavior Per Dr Amelia Tijerina and notes from [facility] patient misconstrued information to several providers about multiple concurrent opiate prescription. -IR embolization 09/28/21 for thrombocytopenia. Counts raised from 30s to 200K ??? Abdominal wall hernia ??? Allergic rhinitis ??? Pancytopenia (HCC) -bone marrow biopsy at [facility] in 2012: maturing trilineage hematopoiesis with no underlying hematopoietic abnormalities ??? Mild persistent asthma without complication ??? Peptic ulcer disease with hemorrhage EGD March 2021:esophagitis and pyloric channel ulcer. Oct 08, 2021: 9-day admission w/ 3 separate EGDs and several units RBC tx. Large posterior duodenalulcer and pyloric ulcer extending into duodenal bulb +mild portal gastropathy as likely sources. RxBID Protonix for 3 months then daily. -01-13-22: EGD NORMAL ([facility]) ??? Thrombocytopenia (HCC) Took lusutrombopag 3 mg once daily for [...] spleen hypertrophied on CT January 2022 ??? Nephrolithiasis Added automatically from request for surgery [id number] Subjective: Tara returns to the [facility] clinic for routine follow up. Taking Lovenox 60 mg once daily and reports great compliance with this. She denies CP, SOB, ROBB, nausea, emesis/hematemesis, LE warmth/ertyhema. She describes fluctuating symmetric LE edema related to diuretic dose changes. Her legs are painful when edematous. Further denies epistaxis, hemoptysis, h ematuria, BRBPR or melena. She does have some bruising on her abdomen related to Lovenox injections. She does not use any cool or warm compresses. She describes her abdominal pain ans fairly minimal today. Overall no acute complaints. Sent to the ED on 02/07/23 immediately following her visit with Dr. Padilla due to abdominal pain, BRBPR and melena. Eval included CT A/P showing chronic nonocclusive portal/splenic vein thrombosis with partial recanalization. Interval improvement in left portal vein and SMV involvement with patent portal and splenic veins Admitted most recently 04/29-05/03 due to hematemesis likely secondary to Shahnaz- Quezada tear in setting of one week of nausea and vomiting. She plans on getting labs drawn immediately following our visit today. Having difficulty sleeping- reached out to PCP about it. ROS: ROS - pertinent positives and negatives as above Social History: Patient reports that she has been smoking cigarettes. She has a 8.75 pack-year smoking history. Shehas never used smokeless tobacco. She reports that she does not drink alcohol and does not use drugs. Medications: Outpatient Encounter Medications as of 06/20/2023: ??? albuterol 90 mcg/actuation inhaler, 1-2 Puff, inhalation, Q4H PRN ??? diclofenac sodium gel, 2 g, topical, BID PRN ??? doxepin (SILENOR) 6 mg tablet, 6 mg, oral, QHS ??? enoxaparin (LOVENOX) 60 mg/0.6 mL injection, 60 mg, subcutaneous, DAILY ??? fluticasone propionate (FLOVENT DISKUS) 100 mcg/actuation blister with device, ??? furosemide (LASIX) 20 mg tablet, TAKE 3 TABLETS EVERY DAY. IF FLUID IN LEGS IS WELL CONTROLLED THEN CUT DOWN TO 2 EVERY DAY. ??? gabapentin (NEURONTIN) 300 mg capsule, 300 mg, oral, TID ??? INCRUSE ELLIPTA 62.5 mcg/actuation, INHALE 1 PUFF BY MOUTH DIRECTED DAILY ??? lactulose (CHRONULAC) 10 gram/15 mL solution, TAKE 15-30ML BY MOUTH DAILY NEEDED (CONSTIPATION. TARGET GOAL OF TWO BOWEL MOVEMENTS DAILY). ??? levothyroxine (SYNTHROID) 25 mcg tablet, TAKE 1 TABLET BY MOUTH EVERY DAY ??? [DISCONTINUED] mirtazapine (REMERON) 7.5 mg tablet, 7.5 mg, oral, QHS (Patient not taking: Reported on 05/10/2023) ??? naloxone (NARCAN) 4 mg/actuation nasal spray, 1 Marine, nasal, PRN (Patient not taking: Reportedon 06/20/2023) ??? ondansetron (ZOFRAN) 4 mg tablet, 4 mg, oral, Q8H PRN ??? oxyCODONE (ROXICODONE) 5 mg immediate release tablet, 5 mg, oral, TID PRN ??? OXYGEN-AIR DELIVERY SYSTEMS MISC, 2 L, misc (non-drug; combo route), QHS ??? spironolactone (ALDACTONE) 100 mg tablet, 50 mg, oral, DAILY ??? sucralfate (CARAFATE) 1 gram tablet, TAKE 1 TABLET BY MOUTH FOUR TIMES A DAY ??? venlafaxine (EFFEXOR-XR) 150 mg XR capsule, 150 mg, oral, DAILY Facility-Administered Encounter Medications as of 06/20/2023: ??? albuterol (ACCUNEB) 2.5 mg /3 mL (0.083 %) nebulizer solution Allergies: Patient is allergic to metoclopramide, morphine, sulfa (sulfonamide antibiotics), tylenol [acetaminophen], flagyl [metronidazole], ambien [zolpidem], aspirin, injectafer [ferric carboxymaltose], lyrica [pregabalin], prochlorperazine, and reglan [metoclopramide hcl]. Physical Exam: Vitals: 06/20/23 1339 BP: 129/67 Pulse: 85 Resp: 20 Temp: 35.9 ??C (96.6 ??F) TempSrc: Skin SpO2: 96% Weight: (!) 101.7 kg (224 lb 4.8 oz) Height: 160 cm (62.99) Estimated body mass index is 39.74 kg/m?? as calculated from the following: Height as of this encounter: 160 cm (62.99). Weight as of this encounter: 101.7 kg (224 lb 4.8 oz). General: No acute distress, alert and oriented times three; conversing appropriately Cardiovascular: Regular rate and rhythm, no murmurs Pulmonary: Clear to auscultation, No wheeze, good air movement throughout Abdomen: Evolving ecchymosis of R abdomen > L but no hematomas. Extremities: Trace symmetric edema of BLE. No palpable cords, nodularities. No pain on calf compression. Labs: Basic Metabolic Panel Lab Results Component Value Date NA 134 (L) 06/20/2023 K 4.1 06/20/2023 CL 97 06/20/2023 CO2 29 06/20/2023 BUN 12 06/20/2023 CREATININE 1.35 (H) 06/20/2023 CALCGFR 44 (L) 06/20/2023 CALCIUM 9.0 06/20/2023 CALCCA 9.2 07/28/2021 MG 1.8 02/23/2023 Gastrointestinal Lab Results Component Value Date LDH 320 06/28/2019 ALKPHOS 142 (H) 06/20/2023 AST 25 06/20/2023 ALT 19 06/20/2023 GGT 47 (H) 11/09/2018 AMMONIA 23 04/29/2023 CONJBILI 0.0 12/14/2022 UNCONJBILI 0.2 12/14/2022 BILIRUBIN Neg 09/20/2017 TBIL 0.8 06/20/2023 TP 6.9 06/20/2023 LABALBU 3.9 06/20/2023 AGRATIO 1.3 06/20/2023 LIPASE 90 03/13/2023 Complete Blood Count Lab Results Component Value Date ABO O 04/29/2023 WBC 4.13 06/20/2023 RBC 4.20 06/20/2023 HGB 12.7 06/20/2023 HCT 37.7 06/20/2023 MCV 90 06/20/2023 MCH 30.2 06/20/2023 MCHC 33.7 06/20/2023 PLT 89 (L) 06/20/2023 MPV 10.5 06/20/2023 RDWCV 14.1 06/20/2023 Differential (Absolute) Lab Results Component Value Date DIFFTYPE Auto 06/20/2023 NEUTROABS 3.13 06/20/2023 ABSBAND 0.02 04/23/2019 LYMPHSABS 0.48 (L) 06/20/2023 MONOSABS 0.43 06/20/2023 EOSABS 0.06 06/20/2023 BASOSABS 0.02 08/29/2019 MYELOABS 0.02 10/21/2018 Anemia Lab Results Component Value Date IRON 40 05/08/2022 TIBC 427 05/08/2022 FERRITIN 129 05/08/2022 FOLATE 7.5 02/11/2022 [id number] 386 07/28/2022 Coagulation Lab Results Component Value Date PROTIME 13.8 (H) 04/28/2023 INR 1.2 (H) 04/28/2023 PTT 32 05/07/2022 DDIMER 1,494 (H) 12/14/2022 ANTITHROM 69 (L) 10/27/2021 [id number] 188 (H) 10/27/2021 PROTCCLOT 59 (L) 10/27/2021 PROTSCLOT 96 10/27/2021 DRVVT 38.5 10/27/2021 Imagin02/07/23 CT A/P W: Findings: Lower chest: No significant finding. Hepatobiliary: Cirrhotic configuration of liver. Intrahepatic portosystemic shunt. There is a approximately 2 cm intrahepatic portosystemic shunt right lobe dome, axial 27, with prominent feeding portal vein branch and draining hepatic vein branch. No suspicious hepatic lesion on portal venous phase. Unchanged mild intrahepatic and extrahepatic biliary ductal dilation. Prior cholecystectomy. Spleen, pancreas, adrenal glands: Unchanged splenomegaly with chronic splenic infarction status post coil embolization. No new splenic infarct. No peripancreatic inflammation or ductal dilation. Unchanged thickened left adrenal gland, normal right adrenal gland. Kidneys, ureters, bladder: Symmetric renal enhancement. No hydroureteronephrosis or nephrolithiasis. Normal urinary bladder. Uterus, ovaries: Prior hysterectomy. No adnexal mass. Bowel: No obstruction or acute inflammation. Prior appendectomy. Scattered sigmoid diverticula. Peritoneal cavity / Subperitoneal space: Small perihepatic free fluid is stable. No fluid collection. No free air.. Lymphovascular: Decreased attenuation of known chronic thrombus within the expanded portal and splenic vein with partial recanalization. Interval improvement in left portal vein, SMV involvement. No significant change in systemic collaterals. No pathologically enlarged lymph nodes. Unchanged enlarged right external iliac lymph node, again measures 7 mm short axis,, axial 227, previously noted to be hypermetabolic on PET/CT. Calcified plaque in the nonaneurysmal aorta and branch vessels. Abdominal wall: No bowel containing hernia. Prior right ventral hernia repair with mesh noted. No significant change in skin thickening and fat stranding in the lower panniculus. Sequela of subcutaneous medication injections. Musculoskeletal: No suspicious osseous lesion or acute fracture. Multilevel degenerative disc disease, most notable at L3-L4, with stable mild height loss of lower thoracic vertebral bodies. Outreach Team Member: No additional findings. IMPRESSION 1. No acute abnormality in the abdomen or pelvis. 2. Evolving chronic nonocclusive portal/splenic vein thrombosis with partial recanalization. Interval improvement in left portal vein and SMV involvement. Portal and splenic veins remain patent. 3. Cirrhotic configuration of liver, with stable intrahepatic portosystemic shunt right dome. 4. Splenomegaly with chronic splenic infarct status post coil embolization. 5. Unchanged left adrenal thickening 6. Prior hysterectomy, cholecystectomy, appendectomy, ventral hernia repair. 7. Mild diverticulosis. 02/14/23 CTA Abd/Pelvis: 1. ??No acute abnormality in the abdomen or pelvis. 2. Chronic non-occlusive portal circulatory thrombosis similar in configuration. ??There may be slight interval increase in the volume of non-occlusive thrombus within the intrahepatic right portal vein. 3. Spontaneous intrahepatic portosystemic shunt, unchanged. 4. Splenomegaly with chronic infarct, similar in appearance. 04/29/23 CT Abd/Pelvis W: IMPRESSION 1. No acute abnormality in the abdomen and pelvis. 2. Chronic nonocclusive portal/splenic thrombosis, not significantly changed. 3. Splenomegaly with chronic infarcts, not significantly changed. 4. Cirrhosis, with stable intrahepatic portosystemic shunt right lobe, no mass.. 5. Mild diverticulosis 6. Prior hysterectomy, cholecystectomy, appendectomy, and ventral hernia repair. Assessment: Tara Yun is a 62 year old female who presents to the THP clinic today for routine scheduled follow up. Her thrombosis history is noted above in the Problem List. In short, she has portal vein thrombosis with aquired anticoagulant deficiencies secondary to cirrhosis (NAFLD). Her course has been complicated by bleeding when has led to dose adjustments and occasional holds of anticoagulation. In November 2022, after anticoagulation had been on hold since January 2022, she had extension of the portal vein thrombosis to include the SMV. At that time, Lovenox 60 mg once daily was resumed and she remains on this. We reviewed several ED visits/admission since her last THP visit including 3 CT scans of the Abdomen/Pelvis as noted above. Her thrombus is stable and she is tolerating Lovenox reasonably well. Givenher bleeding risks (and the fact that she was just admitted last month for bleeding related to Shahnaz-Quezada tears), I think it is best to stick with Lovenox 60 mg once daily. Tara is agreeable to this plan and will follow up with Dr. Padilla in 4 months, sooner if needed. Plan: - continue Lovenox 60 mg once daily - Labs: repeat CBCd and CMP today (reviewed results post visit and overall stable) - Education: Reviewed the signs and symptoms of VTE. Reviewed the importance of staying active, hydrated. Avoid NSAIDs, ASA products while on AC. Any head trauma warrants medical eval. - Follow-up: 4 months, sooner if needed Case discussed with Dr. Padilla Please contact my office with questions/concerns. I spent a total of 30 minutes on the date of this encounter meeting with the patient and reviewing documentation/coordinating care as described in the above note. Loraine Hu PA-C 06/21/2023 6:47 Thrombosis and Hemostasis Program CC: Emigdio Veronica III documented in this encounter Plan of Treatment Upcoming Encounters Date Type Department Care Team (Late st Contact Info) Description 01/04/2025 13:00 EST Office Visit [facility] Ophthalmology [address] [id number] Gagandeep Rome MD [address] [place] [address], [address] [place] [phone] 02/11/2025 13:30 EDT Telemedicine [facility] Hematology & Oncology [address] [phone] Dana Padilla MD [address] [facility], [address] [place] [phone] documented as of this encounter Visit Diagnoses Diagnosis Primary hypercoagulable state (HCC-CMS)- Primary Primary hypercoagulable state documented in this encounter Discontinued Medications Medication Sig Discontinue Reason Start Date End Da te mirtazapine (REMERON) 7.5 mg tablet Take 1 Tablet by mouth at bedtime. Therapy completed 05/03/2023 06/20/2023 documented as of this encounter Care Teams Solutions Manager Relationship Specialty Start Date End Date Emigdio Veronica MD [address] [place] [phone] PCP - General Internal Medicine - Primary Care 05/22/20 02/21/24 Izabella Snowden, [facility] [address] [facility], 3rd [place] [phone] Extension Division Director 02/21/23 05/03/24 documented as of this encounter
--- OUTSIDE RECORDS SUMMARY | 2024-11-22 16:55 | XMS_ITS | Encounter Summary ---
Author Organization [facility] Address [address] [place] [address] Care Team Providers Care Smooth Plater Name Role Phone Emigdio Veronica MD Primary Care Provider + Izabella Snowedn [facility] [phone] Reason for Visit * Reason Comments Health Assistance Program Encounter Details Date Type Department Care Team (Late st Contact Info) Description 06/13/2023 Community Health Team [address], [facility] [address] [place] [address] [facility], Health Assistance Program [address] [place] [id number] Social History Tobacco Use Types Packs/Day Years [...] 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 Production Cloth Cutter (RC) called patient and left a voicemail to call RC back at [phone]. Plan / Action Items: ?? RC will outreach patient again within 5 to 7 days. Lucie Yao 06/13/23 14:04 documented in this encounter Plan of Treatment Upcoming Encounters Date Type Department Care Team (Late st Contact Info) Description 01/04/2025 13:00 EST Office Visit [facility] Ophthalmology - [address] [phone] Gagandeep Rome MD [address] [place] [address] [address] [place] [address] 02/11/2025 13:30 EDT Telemedicine [facility] Hematology & Oncology [address] [phone] Dana Padilla MD [address] [place] [address], [address] [place] [address] documented as of this encounter Visit Diagnoses Not on filedocumented in this encounter Care Teams Smooth Plater Relationship Specialty Start Date End Date Emigdio Veronica MD [address] [place] [phone] PCP - General Internal Medicine - Primary Care 05/22/20 02/21/24 Izabella Snowden, [facility] [address] [facility], 3[address] [place] [address] Guest House Manager 02/21/23 05/03/24 documented as of this encounter
--- OUTSIDE RECORDS SUMMARY | 2024-11-22 16:55 | XMS_ITS | Encounter Summary ---
Author Organization [facility] Address [address] [place] [address] Care Team Providers Care Distillation Operator Name Role Phone Emigdio Veronica MD Primary Care Provider + Izabella Snowden [facility] Unavailable None, Provider Primary Care Provider Gabriel Wei Primary Care Provider Mirna Guerrero Primary Care Provider + Reason for Visit * Reason Onset Date Comments Medications Refill 05/07/2023 Encounter Details Date Type Department Care Team (Late st Contact Info) Description 05/07/2023 Refill [facility] Primary Care [facility] [place] [address] [place] [address] Emigdio Veronica MD [address] [place] [phone] Medications Refill Social History Tobacco Use [...] 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 Date 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 30 Tablet 05/07/2023 05/23/2023 documented in this encounter Miscellaneous Notes * Telephone Encounter - Eugenia Sparks RN - 05/07/2023 1539 EDT Spoke with Gena and she states that she recently was discharged from [facility] and had received a script from the hospital that does have 1 refill on it, but she hardly comes to the main hospital and she uses the Zofran as a chroniic med so she is wanting to know if a script could be sent to the [facility] in [place] for her because she only has two tablets left. I let her know that I would send it to the [facility] provider for review and approval. * Telephone Encounter - Uzma Roca - 05/07/2023 1501 EDT Medication(s) Requested: Zofran Preferred Pharmacy: [facility] Is patient out of medication? Yes Last Refill Date: 05/03/2023 Last Visit Date with Ordering Provider: 04.26.2023 Next Non-Acute Visit Date Scheduled with Care Team: Yes Uzma Roca 05/07/2023 15:02 documented in this encounter Plan of Treatment Upcoming Encounters Date Type Department Care Team (Late st Contact Info) Description 01/04/2025 13:00 EST Office Visit [facility] Ophthalmology - [address] [phone] Gagandeep Rome MD [address] [place] [address], [facility] [address] [place] [phone] 02/11/2025 13:30 EDT Telemedicine [facility] Hematology & Oncology - [address] [phone] Dana Padilla MD [address] [place] [address], [facility] 2 [place] [phone] documented as of this encounter Visit Diagnoses Not on filedocumented in this encounter Discontinued Medications Medication Sig Discontinue Reason Start Date End Da te ondansetron (ZOFRAN) 4 mg tablet Take 1 Tablet by mouth every 8 hours as needed for Nausea. 05/03/2023 05/07/2023 documented as of this encounter Additional Health Concerns Infection Onset Date Last Indicated Resolved Time R/O COVID-19 09/07/2023 09/07/2023 09/07/2023 22:1 6 EDT documented as of this encounter Care Teams Distillation Operator Relationship Specialty Start Date End Date Emigdio Veronica MD [address] [place] [phone] PCP - General Internal Medicine - Primary Care 05/22/20 02/21/24 None, Provider PCP - General 02/24/24 03/18/24 Gabriel Gandara PA PCP - General 03/19/24 09/11/24 Mirna Guerrero PA [address] [place] [address] PCP - General 09/12/24 Izabella Snowden, SENIOR IT ENGINEER 1 [facility], 3rd [place] [address] Machine Operator Helper 02/21/23 05/03/24 documented as of this encounter
--- OUTSIDE RECORDS SUMMARY | 2024-11-22 16:55 | XMS_ITS | Encounter Summary ---
Author Organization [facility] Address [address] [place] [address] Care Team Providers Care Motel Front Desk Clerk Name Role Phone Emigdio Veronica MD Primary Care Provider + Izabella Snowden [facility] Reason for Visit * Reason Comments Health Assistance Program Encounter Details Date Type Department Care Team (Late st Contact Info) Description 06/21/2023 Community Health Team [address], [facility] [address] [place] [address] [facility], Health Assistance Program [address] [place] [id number] Social History Tobacco Use Types Packs/Day Years [...] 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 Administrative Clerk (RC) called and spoke with patient about housing and finding an air conditioner. ?? Patient prioritized housing in the [facility], specifically [facility] & [place]. ?? RC reviewed housing options in those towns and discussed waitlists. ?? All housing that patient has identified accepts the [place] Common Rental Application. RC offered to complete the application today; patient declined. ?? Patient requested RC schedule another phone appointment to complete the application. RC scheduled phone appointment with patient. ?? RC offered to call Age Well with patient today to inquire about getting an air conditioner; patient declined. RC offered Age Well phone number; patient declined. Plan / Action Items: ?? RC will call patient on 06/27/23 at 1:00pm to complete housing application. Lucie Yao 06/21/23 9:55 documented in this encounter Plan of Treatment Upcoming Encounters Date Type Department Care Team (Late st Contact Info) Description 01/04/2025 13:00 EST Office Visit [facility] Ophthalmology - [address] [address] Gagandeep Rome MD [address] [facility], [address] [place] [phone] 02/11/2025 13:30 EDT Telemedicine [facility] Hematology & Oncology - [address] [phone] Dana Padilla MD 111 [facility], [address] [place] [address] documented as of this encounter Visit Diagnoses Not on filedocumented in this encounter Care Teams Motel Front Desk Clerk Relationship Specialty Start Date End Date Emigdio Veronica MD 2 [place] [phone] PCP - General Internal Medicine - Primary Care 05/22/20 02/21/24 Izabella Snowden, [facility] 1 [facility], 3rd [place] [address] Microwave Engineer 02/21/23 05/03/24 documented as of this encounter
--- OUTSIDE RECORDS SUMMARY | 2024-11-22 16:55 | XMS_ITS | Encounter Summary ---
Author Organization 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 Software Specialist (RC) made a second outreach call to patient to follow-up on request for assistance with housing applications and left a voicemail. Plan / Action Items: ?? If RC doesn't hear back from the patient no additional attempts will be made, but RC support always remains available. Lucie Yao 05/17/23 11:04 documented in this encounter Plan of Treatment Upcoming Encounters Date Type Department Care Team (Late st Contact Info) Description 01/04/2025 13:00 EST Office Visit [facility] Ophthalmology - [address] [address] Gagandeep Rome MD [address] [place] [address], [address] [place] [address] 02/11/2025 13:30 EDT Telemedicine [facility] Cancer Center Hematology & Oncology - [facility] [address] [place], [place] [address] Dana Padilla MD 111 [facility], [facility], [address] [place] [address] documented as of this encounter Visit Diagnoses Not on filedocumented in this encounter Care Teams Binder Operator Relationship Specialty Start Date End Date Emigdio Veronica MD [address] [place] [phone] PCP - General Internal Medicine - Primary Care 05/22/20 02/21/24 Izabella Snowden, [facility] 1 [facility], 3rd [place] [phone] Lead Manufacturing Engineering Tech 02/21/23 05/03/24 documented as of this encounter
--- OUTSIDE RECORDS SUMMARY | 2024-11-22 16:55 | XMS_ITS | Encounter Summary ---
Author Organization [facility] Address [address] [place] [address] Care Team Providers Care Salesperson Pets And Pet Supplies Name Role Phone Emigdio Veronica MD Primary Care Provider + Izabella Snowden [facility] [phone] Reason for Visit * Reason Onset Date Comments Medication Management 05/09/2023 Encounter Details Date Type Department Care Team (Late st Contact Info) Description 05/09/2023 Telephone [facility] Inpatient Pharmacy - [facility] [address] [place] [address] Chema Barnett Joss Medication Management Social History Tobacco Use Types [...] 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 - 05/10/2023 1527 EDT Multi-Visit Patient (MVP) - Pharmacy Follow-up Phone Call Tara Yun is a 62 y.o. female who was discharged from [facility] on 05/03/2023 after treatment for hematemesis. The patient was called by the clinical pharmacist on 05/10/2023 for post-hospitalizationmedication review. Medication information was obtained from Patient (Self) Pharmacist Interventions/Recommendations: 1. Sleep Medications: Patient was started on low dose mirtazapine 7.5 mg daily at bedtime for s/sx of insomnia. During hospital stay, patient responded well to mirtazapine. Patient shares she continued therapy outpatient however developed side effects including lightheadedness, stomach ache and nausea. Having previous trazodone tablets on hand, patient switched therapy back to trazodone 200 mg onc e daily at bedtime. a. Recommendation: Please evaluate efficacy and safety of continued high dose trazodone use per indication. Retrial of mirtazapine may be considered with patient education centered around anticipatedside effects. 2. Chlorzoxazone: Upon discharge from hospital patient's chlorzoxazone therapy was discontinued dueto liver dysfunction and lack of efficacy. This change was reflected in the patient's discharge AVS, however, patient reports being unaware of change and continued taking after discharge from hospital. Patient was instructed to stop therapy during phone call today. Per chart review, patient has trialed and failed cyclobenzaprine. Alternatives for this patient given medication list and hepatic dysfunction include baclofen and methocarbamol. Per chart review methocarbamol likely requires prior authorization in outpatient setting. a. Recommendation: Please ensure patient is no longer taking chlorzoxazone and evaluate need for alternative therapy. Medication Changes/Updates highlighted below in Red: Medication Sig ??? albuterol 90 mcg/actuation inhaler Inhale 1-2 Puffs as directed every 4 hours as needed for Wheezing. ??? diclofenac sodium gel Apply 2 g topically 2 times daily as needed for Pain (Knee pain). ??? enoxaparin (LOVENOX) 60 mg/0.6 mL injection Inject 60 mg into the skin daily. ??? fluticasone propionate (FLOVENT DISKUS) 100 mcg/actuation blister with device ??? furosemide (LASIX) 20 mg tablet Take 3 every day. If fluid in legs is well controlled then cut down to 2 every day. ??? gabapentin (NEURONTIN) 300 mg capsule Take 1 Capsule by mouth 3 times daily. ??? INCRUSE ELLIPTA 62.5 mcg/actuation INHALE 1 PUFF BY MOUTH DIRECTED DAILY ??? lactulose (CHRONULAC) 10 gram/15 mL solution TAKE 15-30ML BY MOUTH DAILY NEEDED (CONSTIPATION. TARGET GOAL OF TWO BOWEL MOVEMENTS DAILY). ??? levothyroxine (SYNTHROID) 25 mcg tablet TAKE 1 TABLET BY MOUTH EVERY DAY ??? lidocaine 5 % (LIDODERM) 5 % patch Place 1 Patch onto the skin daily for 14 days. ? naloxone (NARCAN) 4 mg/actuation nasal spray 0.1 mL by nasal route as needed for Opioid Reversal. Repeat every 2-3 minutes if not effective and overdose is suspected. (spray is harmless in excess). ??? ondansetron (ZOFRAN) 4 mg tablet Take 1 Tablet by mouth every 8 hours as needed for Nausea. ??? oxyCODONE (ROXICODONE) 5 mg immediate release tablet Take 1 Tablet by mouth 3 times daily as needed for up to 28 days for Pain. Daily Max: 15 mg ??? OXYGEN-AIR DELIVERY SYSTEMS MISC 2 L by misc (non-drug; combo route) route at bedtime. ??? pantoprazole (PROTONIX) 40 mg tablet Take 1 Tablet by mouth 2 times daily for 30 days. ??? spironolactone (ALDACTONE) 100 mg tablet TAKE 1 TABLET BY MOUTH EVERY DAY ??? sucralfate (CARAFATE) 1 gram tablet TAKE 1 TABLET BY MOUTH FOUR TIMES A DAY ??? traZODone (DESYREL) 100 mg tablet Take 2 Tablets by mouth at bedtime. ??? venlafaxine (EFFEXOR-XR) 150 mg XR capsule Take 1 Capsule by mouth daily. (total daily dose of this medication is 150 mg). Medications added: ??? Trazodone 100 mg: Take 2 tablets at bedtime for insomnia ??? Lidocaine 5% Patches: Place 1 patch onto the skin once daily Medications stopped: ??? Mirtazapine 7.5 mg: Take 1 tablet by mouth once daily at bedtime Patient received medications on discharge from: [facility] Outpatient Patient's preferred pharmacy: [facility]/pharmacy #[id number] Barriers to adherence: None Medication management strategy: Pill box The patient has not missed doses of medication since discharge. Tien Barnett Pharm.D. Multi-Visit Patient (MVP) Pharmacist Yolis Chat Phone: [phone] Pager: [phone] * Chema Barnett RPH - 05/10/2023 1002 EDT Multi-Visit Patient (MVP) - Pharmacy Follow-up Phone Call ?? Call Outcome: Left message ?? Called patient to discuss recent discharge from hospital and review pertinent medication changes. Unable to reach patient, left message to call back. ?? Tien Barnett Pharm.D. PGY1 Fire Safety Inspector 05/10/2023 * Chema Barnett RPH - 05/09/2023 0939 EDT Multi-Visit Patient (MVP) - Pharmacy Follow-up Phone Call Call Outcome: Left message Called patient to discuss recent discharge from hospital and review pertinent medication changes. Unable to reach patient, left message to call back. Tien Barnett, Pharm.D. PGY1 Fire Safety Inspector 05/09/2023 documented in this encounter Plan of Treatment Upcoming Encounters Date Type Department Care Team (Late st Contact Info) Description 01/04/2025 13:00 EST Office Visit [facility] Ophthalmology - [address] [phone] Gagandeep Rome MD [address] [place] [address], [facility] 5 [place] [address] 02/11/2025 13:30 EDT Telemedicine [facility] Hematology & Oncology [address] [address] Dana Padilla MD [address] [place] [address], [facility] 2 [place] [phone] documented as of this encounter Visit Diagnoses Not on filedocumented in this encounter Historical Medications * This list may reflect changes made after this encounter. traZODone (DESYREL) 100 mg tablet Take 2 Tablets by mouth at bedtime. 06/20/2023 added in this encounter Care Teams Salesperson Pets And Pet Supplies Relationship Specialty Start Date End Date Emigdio Veronica MD [address] [place] [address] PCP - General Internal Medicine - Primary Care 05/22/20 02/21/24 Izabella Snowden, CLOTHING SORTER 1 [facility], 3rd [place] [address] Hearing Aid Consultant 02/21/23 05/03/24 documented as of this encounter
--- OUTSIDE RECORDS SUMMARY | 2024-11-22 16:55 | XMS_ITS | Encounter Summary ---
Author Organization [facility] Address [address] [place] [address] Care Team Providers Care 911 Telecommunicator Name Role Phone Emigdio Veronica MD Primary Care Provider + Izabella Snowden [facility] Unavailable [phone] Reason for Visit * Reason Onset Date Comments Medications Refill 05/23/2023 Encounter Details Date Type Department Care Team (Late st Contact Info) Description 05/23/2023 Refill [facility] Adult Primary Care - [place] 2 [place], [place] [phone] Emigdio Veronica MD 2 [place] [address] Medications Refill Social History Tobacco [...] 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 30 Tablet 05/23/2023 06/01/2023 documented in this encounter Miscellaneous Notes * Telephone Encounter - Noemi Hall - 05/23/2023 1543 EDT Requested Prescriptions Pending Prescriptions Disp Refills ??? ondansetron (ZOFRAN) 4 mg tablet 30 Tablet 0 Sig: Take 1 Tablet by mouth every 8 hours as needed for Nausea. [facility]/pharmacy #[id number] - [address] [place] [address] Confirmed Pharmacy? Yes Patient out of medication? Yes: Needs Refill Now Last Refill Date: 05.07.23 Refills left? (explain exceptions requiring early refill) No Recent Visits Date Type Provider Dept 05/05/23 Office Visit Emigdio Veronica III, MD [facility] Adult Prim Care 04/26/23 Office Visit Scottie Campuzano PA-C [facility] Adult Prim Care 03/15/23 Office Visit Emigdio Veronica III, MD [facility] Adult Prim Care 02/24/23 Office Visit Scottie Campuzano PA-C [facility] [place] Adult Prim Care 02/16/23 Office Visit Scottie Campuzano PA-C [facility] [place] Adult Prim Care 01/21/23 Office Visit Emigdio Veronica III, MD [facility] [place] Adult Prim Care 01/05/23 Office Visit Emigdio Veronica III, MD [facility] Adult Prim Care 12/23/22 Office Visit Emigdio Veronica III, MD [facility] Adult Prim Care 11/25/22 Office Visit Emigdio Veronica III, MD [facility] [place] Adult Prim Care 09/29/22 Office Visit Emigdio Veronica III, MD [facility] Adult Prim Care Showing recent visits within past 540 days with a meds authorizing provider and meeting all other requirements Future Appointments Date Type Provider Dept 06/17/23 Appointment Emigdio Veronica III, MD [facility] Adult Prim Care Showing future appointments within next 150 days with a meds authorizing provider and meeting all other requirements Future appointment: Already Scheduled Noemi Hall 05/23/2023 15:44 documented in this encounter Plan of Treatment Upcoming Encounters Date Type Department Care Team (Late st Contact Info) Description 01/04/2025 13:00 EST Office Visit [facility] Ophthalmology - [address] [phone] Gagandeep Rome MD [address] [place] [address], Level [address] [place] [address] 02/11/2025 13:30 EDT Telemedicine [facility] Hematology & Oncology [address] [address] Dana Padilla MD [address] [place] [address], Level 2 [place] [phone] documented as of this encounter Visit Diagnoses Not on filedocumented in this encounter Discontinued Medications Medication Sig Discontinue Reason Start Date End Da te ondansetron (ZOFRAN) 4 mg tablet Take 1 Tablet by mouth every 8 hours as needed for Nausea. Reorder 05/07/2023 05/23/2023 documented as of this encounter Care Teams 911 Telecommunicator Relationship Specialty Start Date End Date Emigdio Veronica MD [address] [place] [address] PCP - General Internal Medicine - Primary Care 05/22/20 02/21/24 Izabella Snowden, [facility] 1 [facility], 3rd [place] [address] Materials Supervisor 02/21/23 05/03/24 documented as of this encounter
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
--- OUTSIDE RECORDS SUMMARY | 2024-11-22 16:55 | XMS_ITS | Encounter Summary ---
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 Daily Max: 15 mg 84 Tablet 06/07/2023 07/01/2023 ondansetron (ZOFRAN) 4 mg tablet TAKE 1 TABLET BY MOUTH EVERY 8 HOURS NEEDED FOR NAUSEA 90 Tablet 1 06/01/2023 07/31/2023 documented in this encounter Miscellaneous Notes * Telephone Encounter - Tiny Moss - 06/01/2023 1155 EDT Pt calling back asking for her Zofran * Telephone Encounter - Jes Mayorga RN - 05/31/2023 1701 EDT Chronic controlled medication yes Last med check visit 05-05-23 Future visit scheduled Yes Vpms check Yes Next due 09-17-23. Prescription agreement Yes Due 06-25-23 Patient due for refill yes Is there a plan for tapering of medication noted in chart? unknown * Telephone Encounter - Zully Guerrier - 05/31/2023 1556 EDT Requested Prescriptions Pending Prescriptions Disp Refills ??? ondansetron (ZOFRAN) 4 mg tablet [Pharmacy Med Name: ONDANSETRON HCL 4 MG TABLET] 30 Tablet 0 Sig: TAKE 1 TABLET BY MOUTH EVERY 8 HOURS NEEDED FOR NAUSEA Oxycodone [facility]/pharmacy #[id number] - [address] Leary asking if the ONDANSETRON can be ordered with refills please as she used to have this done and it would save her calling so frequently Confirmed Pharmacy? Yes Patient out of medication? Yes for the Zofran Last Refill Date: 05/23/23 Refills left? (explain exceptions requiring early refill) no Recent Visits Date Type Provider Dept 05/26/23 Office Visit Scottie Campuzano PA-C [facility] Adult Prim Care 05/05/23 Office Visit Emigdio Veronica III, MD [facility] Adult Prim Care 04/26/23 Office Visit Scottie Campuzano PA-C [facility] Adult Prim Care 03/15/23 Office Visit Emigdio Veronica III, MD [facility] Adult Prim Care 02/24/23 Office Visit Scottie Campuzano PA-C [facility] Adult Prim Care 02/16/23 Office Visit Scottie Campuzano PA-C [facility] Adult Prim Care 01/21/23 Office Visit Emigdio Veronica III, MD [facility] Adult Prim Care 01/05/23 Office Visit Emigdio Veronica III, MD [facility] Adult Prim Care 12/23/22 Office Visit Emigdio Veronica III, MD [facility] Adult Prim Care 11/25/22 Office Visit Emigdio Veronica III, MD [facility] Adult Prim Care Showing recent visits within past 540 days with a meds authorizing provider and meeting all other requirements Future Appointments Date Type Provider Dept 07/13/23 Appointment Emigdio Veronica III, MD [facility] Adult Prim Care Showing future appointments within next 150 days with a meds authorizing provider and meeting all other requirements Future appointment: Already Scheduled Zully Guerrier 05/31/2023 15:58 documented in this encounter Plan of Treatment Upcoming Encounters Date Type Department Care Team (Late st Contact Info) Description 01/04/2025 13:00 EST Office Visit [facility] Ophthalmology - [address] [phone] Gagandeep Rome MD [address] [place] [address], [facility] [address] [place] [phone] 02/11/2025 13:30 EDT Telemedicine [facility] Hematology & Oncology - [address] [phone] Dana Padilla MD [address] [place] [address], [facility] [address] [place] [phone] documented as of this encounter Visit Diagnoses Not on filedocumented in this encounter Discontinued Medications Medication Sig Discontinue Reason Start Date End Da te oxyCODONE (ROXICODONE) 5 mg immediate release tablet Take 1 Tablet by mouth 3 times daily as needed for up to 28 days for Pain. Daily Max: 15 mg Reorder 05/10/2023 05/31/2023 ondansetron (ZOFRAN) 4 mg tablet Take 1 Tablet by mouth every 8 hours as needed for Nausea. 05/23/2023 06/01/2023 documented as of this encounter Care Teams Line Tender Flakeboard Relationship Specialty Start Date End Date Emigdio Veronica MD [address] [place] [phone] PCP - General Internal Medicine - Primary Care 05/22/20 02/21/24 Izabella Snowden, CRYPTOGRAPHER 1 [facility], 3rd [place] [phone] Air Drier Machine Operator 02/21/23 05/03/24 documented as of this encounter
--- OUTSIDE RECORDS SUMMARY | 2024-11-22 16:55 | XMS_ITS | Encounter Summary ---
Author Organization [facility] Address [address] [place] [address] Care Team Providers Care Package Delivery Room Service Runner Name Role Phone Emigdio Veronica MD Primary Care Provider + Izabella Snowden [facility] Unavailable None, Provider Primary Care Provider Gabriel Wei Primary Care Provider [phone] Mirna Guerrero Primary Care Provider + Reason for Visit * Reason Comments Medications Refill Encounter Details Date Type Department Care Team (Late st Contact Info) Description 06/23/2023 Refill [facility] Adult Primary Care - [place] [address] [place] [address] Emigdio Veronica MD [address] [place] [address] Medications Refill Social History Tobacco [...] 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 furosemide (LASIX) 20 mg tablet [Pharmacy Med Name: FUROSEMIDE 20 MG TABLET] 90 Tablet 1 Sig: TAKE 3 TABLETS EVERY DAY. IF FLUID IN LEGS IS WELL CONTROLLED THEN CUT DOWN TO 2 EVERY DAY. [facility]/pharmacy #[id number] - [address] Confirmed Pharmacy? Yes Patient out of medication? Unknown Last Refill Date: 05/31/23 Refills left? (explain exceptions requiring early refill) should have a refill Recent Visits Date Type Provider Dept 06/10/23 Office Visit Emigdio Veronica III, MD [facility] Adult Prim Care 05/26/23 Office Visit Scottie Campuzano PA-C [facility] Adult Prim Care 05/05/23 Office Visit Emigdio Veronica III, MD [facility] Adult Prim Care 04/26/23 Office Visit Scottie Campuzano PA-C [facility] Adult Prim Care 03/15/23 Office Visit Emigdio Veronica III, MD [facility] Adult Prim Care 02/24/23 Office Visit Scottie Campuzano PA-C [facility] Adult Prim Care 02/16/23 Office Visit Scottie Campuzano PA-C [facility] Adult Prim Care 01/21/23 Office Visit Emigdio Veronica III, MD [facility] Adult Prim Care 01/05/23 Office Visit Emigdio Veronica III, MD [facility] Adult Prim Care 12/23/22 Office Visit Emigdio Veronica III, MD [facility] Adult Prim Care Showing recent visits within past 540 days with a meds authorizing provider and meeting all other requirements Future Appointments Date Type Provider Dept 07/13/23 Appointment Emigdio Veronica III, MD [facility] Adult Prim Care Showing future appointments within next 150 days with a meds authorizing provider and meeting all other requirements Future appointment: Already Scheduled FATOUMATA FOWLER RN 06/23/2023 14:24 documented in this encounter Plan of Treatment Upcoming Encounters Date Type Department Care Team (Late st Contact Info) Description 01/04/2025 13:00 EST Office Visit [facility] Ophthalmology - [address] [phone] Gagandeep Rome MD [address] [place] [address], [facility] 5 [place] [phone] 02/11/2025 13:30 EDT Telemedicine [facility] Hematology & Oncology [address] [phone] Dana Padilla MD [address] [place] [address], [facility] 2 [place] [address] documented as of this encounter Visit Diagnoses Not on filedocumented in this encounter Additional Health Concerns Infection Onset Date Last Indicated Resolved Time R/O COVID-19 09/07/2023 09/07/2023 09/07/2023 22:1 6 EDT documented as of this encounter Care Teams Package Delivery Room Service Runner Relationship Specialty Start Date End Date Emigdio Veronica MD [address] [place] [phone] PCP - General Internal Medicine - Primary Care 05/22/20 02/21/24 None, Provider PCP - General 02/24/24 03/18/24 Gabriel Gandara PA PCP - General 03/19/24 09/11/24 Mirna Guerrero PA [address] [place] [id number] PCP - General 09/12/24 Izabella Snowden, DARNELL 1 [facility], 3rd [place] [phone] Skilled Helper 02/21/23 05/03/24 documented as of this encounter
--- OUTSIDE RECORDS SUMMARY | 2024-11-22 16:55 | XMS_ITS | Encounter Summary ---
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 Press Room Supervisor (RC) called patient for scheduled phone appointment at 1:00pm and left a voicemail to call RC back at [phone]. Plan / Action Items: ?? If no response from patient, RC will outreach again within 7 to 10 days. Lucie Yao 06/27/23 13:01 documented in this encounter Plan of Treatment Upcoming Encounters Date Type Department Care Team (Late st Contact Info) Description 01/04/2025 13:00 EST Office Visit [facility] Ophthalmology - [address] [phone] Gagandeep Rome MD [address] [place] [address], [facility] 5 [place] [address] 02/11/2025 13:30 EDT Telemedicine [facility] Hematology & Oncology [address] [phone] Dana Padilla MD [address] [place] [address], [facility] 2 [place] [address] documented as of this encounter Visit Diagnoses Not on filedocumented in this encounter Care Teams Manufacturing Plant Controller Relationship Specialty Start Date End Date Emigdio Veronica MD [address] [place] [address] PCP - General Internal Medicine - Primary Care 05/22/20 02/21/24 Izabella Snowden, [facility] 1 [facility], 3rd [place] [address] Silverware Supervisor 02/21/23 05/03/24 documented as of this encounter
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
--- OUTSIDE RECORDS SUMMARY | 2024-11-22 16:55 | XMS_ITS | Encounter Summary ---
Author Organization [facility] Address [address] [place] [address] Care Team Providers Care Energy Auditor Name Role Phone Emigdio Veronica MD Primary Care Provider + Izabella Snowden [facility] Unavailable None, Provider Primary Care Provider Gabriel Wei Primary Care Provider [phone] Mirna Guerrero Primary Care Provider + Reason for Visit * Reason Onset Date Comments Medication Reaction 06/02/2023 Seroquel Encounter Details Date Type Department Care Team (Late st Contact Info) Description 06/02/2023 Telephone [facility] Adult Primary Care - [place] 2 [place] [address] Emigdio Veronica MD 2 [place] [address] Medication Reaction (Seroquel ) Social History Tobacco Use Types Packs/Day [...] 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 Unable to do phone visits. * Telephone Encounter - Emigdio Veronica III, MD - 06/02/2023 1541 EDT OV required to discuss complex sleep history and alternative medical management. Agree with stopping seroquel * Telephone Encounter - Cris Taylor RN - 06/02/2023 1354 EDT Call put through from [facility], Tara reporting she took her first dose of seroquel last night to helpwith her sleep. States within an hour or so after taking it she felt short of breath and her muscles felt tight. States she put on her oxygen and that helped. Tara reports her breathing is better today still a little labored but not too bad, I'm not on my oxygen; does not sound SOB during this phone conversation. Aware to use her oxygen when needed. Reports sitting in her room with her air going helps her breathing. Tara aware to not take another dose of the Seroquel due to this reaction. Trouble with sleep for 2 weeks now (see last visit note 05/26/23) Wonders if there is another sleep aid she could try. Scheduled next available visit with PCP, 06/10/23 as a phone visit since patient does not have videoaccess. Routed to PCP to review. * Telephone Encounter - Cris Copeland - 06/02/2023 5485 EDT Reason for Call: Medication Reaction (Seroquel ) Summary/Symptoms: Pt calling to report that she started new medication last night for sleep. Seroquel. States a couple hours after taking couldn't breath felt like brick on chest Muscle spasms, pain balled up Had O2 on Couldn't get to phone Still having trouble taking deep breaths Spasms have stopped Onset and Duration: last night Does the patient have a computer, laptop or smart phone with high speed & video capability? N/A If so, would they be interested in doing a video visit via [employer]? N/A Appointment Offered? No Cris Copeland 06/02/2023 13:45 documented in this encounter Plan of Treatment Upcoming Encounters Date Type Department Care Team (Late st Contact Info) Description 01/04/2025 13:00 EST Office Visit [facility] Ophthalmology - Main [address] [address] Gagandeep Rome MD 111 [facility], [address] [place] [phone] 02/11/2025 13:30 EDT Telemedicine [facility] Hematology & Oncology - [facility] [address] [place], [place] [phone] Dana Padilla MD 111 [facility], [address] [place] [address] documented as of this encounter Visit Diagnoses Not on filedocumented in this encounter Additional Health Concerns Infection Onset Date Last Indicated Resolved Time R/O COVID-19 09/07/2023 09/07/2023 09/07/2023 22:1 6 EDT documented as of this encounter Care Teams Energy Auditor Relationship Specialty Start Date End Date Emigdio Veronica MD [address] [place] [phone] PCP - General Internal Medicine - Primary Care 05/22/20 02/21/24 None, Provider PCP - General 02/24/24 03/18/24 Gabriel Gandara PA PCP - General 03/19/24 09/11/24 Mirna Guerrero PA [address] [place] [address] PCP - General 09/12/24 Izabella Snowden VARNISH MAKER 1 [facility], 3rd [place] [phone] Nuclear Officer 02/21/23 05/03/24 documented as of this encounter
--- OUTSIDE RECORDS SUMMARY | 2024-11-22 16:55 | XMS_ITS | Encounter Summary ---
Author Organization [facility] Address [address] [place] [address] Care Team Providers Care Glue Jointer Feeder Name Role Phone Emigdio Veronica MD Primary Care Provider + Izabella Snowden [facility] Unavailable [phone] Reason for Visit * Reason Comments Sleep Problems Emesis Unable to eat becmiguel a e she throws up Encounter Details Date Type Department Care Team (Late st Contact Info) Description 06/10/2023 16:15 EDT Office Visit [facility] [place] [facility] Adult Primary Care - [place] [address] [place] [address] Emigdio Veronica MD [address] [place] [address] Chronic nausea (Primary Dx); Insomnia, unspecified type; HUEY (obstructive sleep apnea) Social History Tobacco Use Types Packs/Day Years Used Date Smoking Tobacco: Some Days Cigarettes 0.3 35 Smokeless Tobacco: Never Tobacco Cessation:Ready to Q uit: Yes; Counseling Given: Yes Comments:smokes couple times a [...] 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 06/12/2023 documented in this encounter Progress Notes * Emigdio Veronica III, MD - 06/10/2023 1615 EDT Tara Yun is a 62 y.o. female with a PMHx of chronic pain syndrome, pancytopenia, NAFLD, COPD, mixed anxiety and depressive disorder, HUEY PRIMARY CARE PROVIDER: Emigdio Veronica III CHIEF COMPLAINT: Chief Complaint Patient presents with ??? Sleep Problems ??? Emesis Unable to eat because she throws up SUBJECTIVE: Tara Yun presents today for an acute visit for complaints of chronic nausea and poor sleep. Gena reports over the last several weeks she has appreciated increasingly worsening nausea with recurrent episodes of emesis. Her chronic nausea is not new and has been present for several years. She was last admitted to the [facility] internal medicine service this past month for hematemesis in the setting of a Shahnaz-Quezada tear due to her chronic nausea. Thankfully she reports no further episodes of hematemesis but states that she has not been able to control the nausea with her previously prescribed ondansetron. She confirms a longstanding history of acute on chronic nausea when she is over diuresed and she confirms that her weights have remained stable on her current combination of spironol actone 100 mg daily and furosemide 40 mg daily. She is open to making an adjustment in her diureticdosage today to see if this will improve her nausea. Regards to her poor sleep she confirms that a recent trial of Seroquel for her insomnia was unsuccessful. She states that she felt short of breath after taking the the antipsychotic. She is currentlyon a combination of trazodone, gabapentin, venlafaxine and oxycodone for complaints of chronic pain, mixed anxiety depressive disorder and insomnia. She notably has a history of severe obstructive sleep apnea for which she was referred to sleep medicine and heavily encouraged to start CPAP therapy.She ultimately refused to obtain a CPAP machine as an outpatient due to her struggles with CPAP therapy while hospitalized. She has yet to work with the medical supplier on finding a compatible CPAP mask and machine for nightly therapy. ROS as above Medications and history reviewed. [...] ??? levothyroxine (SYNTHROID) 25 mcg tablet ??? mirtazapine (REMERON) 7.5 mg tablet ??? naloxone (NARCAN) 4 mg/actuation nasal spray ??? ondansetron (ZOFRAN) 4 mg tablet ??? oxyCODONE (ROXICODONE) 5 mg immediate release tablet ??? OXYGEN-AIR DELIVERY SYSTEMS MISC ??? spironolactone (ALDACTONE) 100 mg tablet ??? sucralfate (CARAFATE) 1 gram tablet ??? traZODone (DESYREL) 100 mg tablet ??? venlafaxine (EFFEXOR-XR) 150 mg XR capsule No current facility-administered medications for this visit. Facility-Administered Medications Ordered in Other Visits Medication Route Frequency ??? albuterol (ACCUNEB) 2.5 mg /3 mL (0.083 %) nebulizer solution OBJECTIVE: BP 119/56 (BP Cuff Location: Left arm, BP Patient Position: Sitting, BP Cuff Sizes: Adult, long) Pulse 72 Comment: r Temp 36.7 ??C (98 ??F) (Skin) Resp 16 Wt (!) 101.2 kg (223 lb 3.2 oz) BMI 38.31 kg/m?? Gen: Fatigued and chronically ill appearing middle-age female, NAD HEENT: EOMI, PERRL, conjunctiva pink, no scleral injection/ icterus Neck: no cervical lymphadenopathy, no JVD Extrem: no edema, warm and well perfused Skin: No rashes or erythema, intact Neuro: A&Ox3, CN II through XII grossly intact Recent Labs/Imaging: Reviewed in epic ASSESSMENT and PLAN: Tara was seen today for sleep problems and emesis. Diagnoses and all orders for this visit: Chronic nausea: Symptoms likely multifactorial related to her NAFLD and likely polypharmacy. We discussed that many of the medications she is taking have reported adverse effects of nausea with her use of oxycodone being the most likely culprit. She denies any interest however in adjusting this pain medication due to the side effect. She does have a history of worsened nausea in the setting of overdiuresis and she reports minimal edema and low weights recently. She is willing to trial an adjustment in her spironolactone to see if this aids in controlling her nausea symptoms. -We will dose reduce spironolactone from 100 mg daily to 50 mg daily. Low threshold to return to 100 mg dosage if symptoms of nausea fail to improve in the next few weeks or if weights dramatically increase. -We will continue ondansetron as previously prescribed for now -Should adjustment in her diuretics fail would recommend changing opiate therapy next. Insomnia, unspecified type, HUEY (obstructive sleep apnea): Multifactorial source of disrupted sleep. Patient reports poor tolerance to Seroquel. Discussed the patient continues to inadequately treat her severe obstructive sleep apnea with only nocturnal oxygen and no form of pressure therapy. We reviewed the pathophysiology of HUEY in depth and discussed that no medical sleep aid was likely to assist with her sleep symptoms until her HUEY is adequately treated. -Encouraged the patient to reconnect with her medical supplier on finding a compatible CPAP machineand sleep mask that she feels comfortable with. If she believes she cannot tolerate CPAP therapy I encouraged her to follow-up with sleep medicine discussed alternative forms of therapy for her HUEY. However I heavily encouraged her to at least try a few different forms of CPAP therapy -We will hold off on any additional sleep aid prescriptions at this time. Would heavily advised against benzodiazepine or hypnotic therapy given the current risk of respiratory depression on opiate therapy. Should her HUEY be better controlled and her issues of insomnia persist could consider swapping trazodone for a TCA such as doxepin to see if this therapy will be more effective. F/u: Return in about 1 month (around 07/11/2023). For nausea, insomnia and chronic pain I spent a total of 30 minutes with this patient today face to face, in chart review and in documentation and 25 minutes of that time was spent on education and counseling for chronic nausea, HUEY and insomnia. Some of this note was transcribed with [employer] dictating software. While it was proofread, it may still contain unnoticed grammatical or word errors due to incorrect transcribing. Emigdio Veronica III, MD 06/12/2023 9:53 documented in this encounter Plan of Treatment Upcoming Encounters Date Type Department Care Team (Late st Contact Info) Description 01/04/2025 13:00 EST Office Visit [facility] [place] [facility] Ophthalmology - Main [address] [address] Gagandeep Rome MD [address] [place] [address], [address] [place] [phone] 02/11/2025 13:30 EDT Telemedicine [facility] Hematology & Oncology - [address] [phone] Dana Padilla MD 111 [facility], [facility] 2 [place] [address] documented as of this encounter Visit Diagnoses Diagnosis Chronic nausea- Primary Nausea alone Insomnia, unspecified type HUEY (obstructive sleep apnea) Obstructive sleep apnea (adult) (pediatric) documented in this encounter Discontinued Medications Medication Sig Discontinue Reason Start Date End Da te QUEtiapine (SEROQUEL) 25 mg tablet Take one half or 1 tablet at bedtime for sleep. Patient Stopped Taking 05/29/2023 06/10/2023 spironolactone (ALDACTONE) 100 mg tablet TAKE 1 TABLET BY MOUTH EVERY DAY Dose adjustment 11/19/2022 06/12/2023 documented as of this encounter Care Teams Glue Jointer Feeder Relationship Specialty Start Date End Date Emigdio Veronica MD [address] [place] [address] PCP - General Internal Medicine - Primary Care 05/22/20 02/21/24 Izabella Snowden, [facility] 1 [facility], 3rd [place] [phone] Filler In 02/21/23 05/03/24 documented as of this encounter
--- OUTSIDE RECORDS SUMMARY | 2024-11-22 16:56 | XMS_ITS | Encounter Summary ---
Author Organization [facility] Address [address] [place] [address] Care Team Providers Care Pigment Processor Name Role Phone Emigdio Veronica MD Primary Care Provider + Izabella Snowden [facility] [phone] Reason for Visit * Reason Onset Date Comments Paperwork request 04/05/2023 Encounter Details Date Type Department Care Team (Late st Contact Info) Description 04/05/[address] [facility] Adult Primary Care - [place] 2 [place] [address] Emigdio Veronica MD [address] [place] [address] Paperwork request Social History Tobacco Use Types [...] from medical appointments or from getting medications? Yes 04/2023 In the past 12 months, has l ack of transportation kept you from meetings, work, or from getting things needed for daily living? No 02/24/2023 Housing Stability Vital Sign Answer Jonas e Recorded In the last 12 months, was t here a time when you were not able to pay the mortgage or rent on time? No 02/24/2023 In the last 12 months, how many places have you lived? 1 02/24/2023 In the last 12 months, was t here a time when you did not have a steady place to sleep or slept in a longterm (including now)? 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 No / Unsure 03/13/2023 11:05 EDT documented as of this encounter Functional Status * Are you deaf or do you have serious difficulty hearing? Answer Date of Assessment Author No 02/07/2023 12:09 EDT Jess Gallardo RN * Do you have serious difficulty walking or climbing stairs? (5 years old or older) Answer Date of Assessment Author No 06/16/2022 0:00 EDT Soila Murphy RN * Do you have difficulty dressing or bathing? (5 years old or older) Answer Date of Assessment Author No 06/16/2022 0:00 EDT Soila Murphy RN * Because of a physical, mental, or emotional condition, do you have difficulty doing errands alone such as visiting a doctor's office or shopping? (15 years old or older) Answer Date of Assessment Author No 06/16/2022 0:00 EDT Soila Murphy RN documented as of this encounter Mental Status * Because of a physical, mental, or emotional condition, do you have serious difficulty concentrating, remembering, or making decisions? (5 years old or older) Answer Entry Date Author No 06/16/2022 0:00 EDT Soila Murphy RN documented in this encounter Miscellaneous Notes * Telephone Encounter - Cris Copeland - 04/15/2023 1429 EDT Signed letter faxed * Telephone Encounter - Emigdio Veronica MD - 04/15/2023 1048 EDT Letter updated. Please print and I will sign. * Telephone Encounter - Cris Copeland - 04/15/2023 0956 EDT Medicaid sent second request for letter. See pended letter for specific questions. * Telephone Encounter - Cris Copeland - 04/08/2023 1628 EDT Medicaid sent letter back, need more detail with specific questions answered. Pended [facility] letter * Telephone Encounter - Tiny Moss - 04/05/2023 1322 EDT Rec'd Public transportation medical application from [facility] for this pt. Is there anything that the CCAs/LPNs &/or Triage can fill out? no Form will be out to Dr. Veronica to review & complete what they can , then forward as appropriate per forms protocol. Educated patient regarding 7 day turn around for paperwork. Explained we cannot guarantee completion before 7 days. No When done fax to [phone]. documented in this encounter Plan of Treatment Upcoming Encounters Date Type Department Care Team (Late st Contact Info) Description 01/04/2025 13:00 EST Office Visit [facility] Ophthalmology - [address] [phone] Gagandeep Rome MD [address] [place] [address] 5 [place] [address] 02/11/2025 13:30 EDT Telemedicine [facility] Hematology & Oncology [address] [phone] Dana Padilla MD [address] [place] [address], [facility] 2 [place] [address] documented as of this encounter Visit Diagnoses Not on filedocumented in this encounter Care Teams Pigment Processor Relationship Specialty Start Date End Date Emigdio Veronica MD 2 [place] [address] PCP - General Internal Medicine - Primary Care 05/22/20 02/21/24 Izabella Snowden, INFORMATION TECHNOLOGY TECHNICIAN 1 [facility], 3rd [place] [address] Fishing Accessories Maker 02/21/23 05/03/24 documented as of this encounter
--- OUTSIDE RECORDS SUMMARY | 2024-11-22 16:56 | XMS_ITS | Encounter Summary ---
Author Organization [facility] Address [address] [place] [address] Care Team Providers Care Cosmetic Sales Name Role Phone Emigdio Veronica MD Primary Care Provider + Izabella Snowden [facility] Unavailable [phone] Reason for Visit * Reason Onset Date Comments DME 03/30/2023 Encounter Details Date Type Department Care Team (Late st Contact Info) Description 03/30/2023 Telephone [facility] - [address] [place] [address] Sleep, Tech [address] [place] [id number] DME Social History Tobacco Use Types Packs/Day Years [...] slept in a prison (including now)? 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 Pt reports wanting to review alternative options to CPAP. Pt advised of options; positional; MAD; CPAP; Inspire;surgical intervention. Pt also advised CPAP is the first-line treatment b/c it is the most effective. Pt continues to prefer discussion w/ Dr. Black at 04/14/23 f/u. Routed to Dr. Black for review. * Telephone Encounter - Arlette Abbott - 03/30/2023 1421 EDT Spoke to Opal from [facility] to inquire if pt was set up with PAP yet. Opal stated ptwas a no show to her set up appointment and never returned their calls. Encounter routed to pt's sleep provider, Dr. Black. documented in this encounter Plan of Treatment Upcoming Encounters Date Type Department Care Team (Late st Contact Info) Description 01/04/2025 13:00 EST Office Visit [facility] Ophthalmology - [address] [phone] Gagandeep Rome MD [address] [facility], [address] 5 [place] [phone] 02/11/2025 13:[address] [facility] Hematology & Oncology - [address] [address] Dana Padilla MD 111 [facility], Level 2 [place] [address] documented as of this encounter Visit Diagnoses Not on filedocumented in this encounter Care Teams Cosmetic Sales Relationship Specialty Start Date End Date Emigdio Veronica MD [address] [place] [address] PCP - General Internal Medicine - Primary Care 05/22/20 02/21/24 Izabella Snowden, [facility] 1 [facility], 3rd [place] [address] Baggage And Mail Agent 02/21/23 05/03/24 documented as of this encounter
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
--- OUTSIDE RECORDS SUMMARY | 2024-11-22 16:56 | XMS_ITS | Encounter Summary ---
Author Organization [facility] Address [address] [place] [address] Care Team Providers Care Ironer Hand Name Role Phone Emigdio Veronica MD Primary Care Provider + Izabella Snowden [facility] Unavailable None, Provider Primary Care Provider Gabriel Wei Primary Care Provider Mirna Guerrero Primary Care Provider + Reason for Visit * Reason Onset Date Comments Medications Refill 04/08/2023 Encounter Details Date Type Department Care Team (Late st Contact Info) Description 04/08/[address] [facility] Adult Primary Care - [place] [address] [place] [address] Emigdio Veronica MD [address] [place] [address] Medications Refill Social History Tobacco [...] slept in a [facility] (including now)? 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 Daily Max: 15 mg 84 Tablet 04/12/2023 05/05/2023 documented in this encounter Miscellaneous Notes * Telephone Encounter - Tiny Moss - 04/08/2023 1502 EDT Requested Prescriptions Pending Prescriptions Disp Refills ??? oxyCODONE (ROXICODONE) 5 mg immediate release tablet 84 Tablet 0 Sig: Take 1 Tablet by mouth 3 times daily as needed for up to 28 days for Pain. Daily Max: [address] [facility]/pharmacy #[id number] - [address] Patient states medication is due next tuesday Confirmed Pharmacy? Yes Patient out of medication? No Last Refill Date: 03-15-23 Refills left? (explain exceptions requiring early refill) No Recent Visits Date Type Provider Dept 03/15/23 Office Visit Emigdio Veronica MD [facility] [place] Adult Prim Care 02/24/23 Office Visit Scottie Campuzano PA-C [facility] Adult Prim Care 02/16/23 Office Visit Scottie Campuzano PA-C [facility] Adult Prim Care 01/21/23 Office Visit Emigdio Veronica MD [facility] Adult Prim Care 01/05/23 Office Visit Emigdio Veronica MD [facility] Adult Prim Care 12/23/22 Office Visit Emigdio Veronica MD [facility] Adult Prim Care 11/25/22 Office Visit Emigdio Veronica MD [facility] Adult Prim Care 09/29/22 Office Visit Emigdio Veronica MD [facility] Adult Prim Care 09/17/22 Office Visit Emigdio Veronica MD [facility] Adult Prim Care 08/11/22 Office Visit Emigdio Veronica MD [facility] Adult Prim Care Showing recent visits within past 540 days with a meds authorizing provider and meeting all other requirements Future Appointments Date Type Provider Dept 04/22/23 Appointment Emigdio Veronica MD [facility] Adult Prim Care Showing future appointments within next 150 days with a meds authorizing provider and meeting all other requirements Future appointment: Already Scheduled Tiny Moss 04/08/2023 15:02 documented in this encounter Plan of Treatment Upcoming Encounters Date Type Department Care Team (Late st Contact Info) Description 01/04/2025 13:[address] [facility] Ophthalmology - [address] [phone] Gagandeep Rome MD [address] [place] [address] [address] [place] [phone] 02/11/2025 13:30 EDT Telemedicine [facility] Hematology & Oncology [address] [phone] Dana Padilla MD [address] [place] [address], [address] [place] [phone] documented as of this encounter Visit Diagnoses Not on filedocumented in this encounter Discontinued Medications Medication Sig Discontinue Reason Start Date End Da te oxyCODONE (ROXICODONE) 5 mg immediate release tablet Take 1 Tablet by mouth 3 times daily as needed for up to 28 days for Pain. Daily Max: 15 mg Reorder 03/15/2023 04/08/2023 documented as of this encounter Additional Health Concerns Infection Onset Date Last Indicated Resolved Time R/O COVID-19 04/28/2023 04/28/2023 04/29/2023 0:02 EDT R/O COVID-19 09/07/2023 09/07/2023 09/07/2023 22:1 6 EDT documented as of this encounter Care Teams Ironer Hand Relationship Specialty Start Date End Date Emigdio Veronica MD [address] [place] [phone] PCP - General Internal Medicine - Primary Care 05/22/20 02/21/24 None, Provider PCP - General 02/24/24 03/18/24 Gabriel Gandara PA PCP - General 03/19/24 09/11/24 Mirna Guerrero PA [address] [place] [address] PCP - General 09/12/24 Izabella Snowden, [employer] [facility], [address] [place] [phone] Weed Control Inspector 02/21/23 05/03/24 documented as of this encounter
--- OUTSIDE RECORDS SUMMARY | 2024-11-22 16:56 | XMS_ITS | Encounter Summary ---
Author Organization [facility] Address [address] [place] [address] Care Team Providers Care Asphalt Coater Name Role Phone Emigdio Veronica MD Primary Care Provider + Izabella Snowden [facility] Reason for Visit * Reason Onset Date Comments Appointment Related 05/02/2023 Encounter Details Date Type Department Care Team (Late st Contact Info) Description 05/02/2023 Telephone [facility] Adult Primary Care - [place] [address] [place] [address] Emigdio Veronica MD [address] [place] [phone] Appointment Related Social History Tobacco [...] 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 Sending to Triage as an FYI, so that they can reschedule as appropriate once sheis discharged. Does the patient have a computer, laptop or smart phone with high speed & video capability? N/A If so, would they be interested in doing a video visit via [employer]? N/A Appointment Offered? No Zully Guerrier 05/02/2023 16:07 documented in this encounter Plan of Treatment Upcoming Encounters Date Type Department Care Team (Late st Contact Info) Description 01/04/2025 13:00 EST Office Visit [facility] Ophthalmology - [address] [phone] Gagandeep Rome MD [address] [place] [address], [address] [place] [address] 02/11/2025 13:30 EDT Telemedicine [facility] Hematology & Oncology - [address] [phone] Dana Padilla MD [address] [place] [address], [address] [place] [address] documented as of this encounter Visit Diagnoses Not on filedocumented in this encounter Care Teams Asphalt Coater Relationship Specialty Start Date End Date Emigdio Veronica MD [address] [place] [phone] PCP - General Internal Medicine - Primary Care 05/22/20 02/21/24 Izabella Snowden, [facility] 1 [facility], 3rd [place] [address] Pole Truck Driver 02/21/23 05/03/24 documented as of this encounter
--- OUTSIDE RECORDS SUMMARY | 2024-11-22 16:56 | XMS_ITS | Encounter Summary ---
Author Organization [facility] Address [address] [place] [address] Care Team Providers Care Jeep Mechanic Name Role Phone Emigdio Veronica MD Primary Care Provider + Izabella Snowden [facility] Unavailable [phone] Reason for Visit * Reason Comments Hematemesis Pt arrives via EMS f rom home. Pt reports noting some red striking of blood in her emesis starting Tuesday and has been getting progressively worse over the last several days. Yesterday pt began to vomit all blood - pt reports bright red. Pt reports vomiting a lot of times and unable to keep anything down. Last episodes of emesis was 1 hr DONATION SPECIALIST. Pt has hx of GI bleeds - last one in August. Pt on Lovanox shots daily for 2 blood clots in a splenic vessel. +diarrhea - unknown if blood present. * Auth/Cert (Routine) Specialty Diagnoses / Procedures Referred By Contac t Referred To Contact Diagnoses Hematemesis, unspecified whether nausea present Hematemesis Referral ID Status Reason Start Date Expiration Date Visits Re quested Visits Authorized [id number] 1 1 Encounter Details Date Type Department Care Team (Late st Contact Info) Description 04/28/2023 21:21 EDT - 05/03/2023 13:24 EDT Hospital [facility] [address], [place] [id number] Jayden Plasencia MD [address] [phone] Adrienne Dickens MD [address] [place] [phone] Jay Jay Gresham MD [address] [place] [phone] Alethea Alexis MD MPH [address] [place] [phone] Wayne Madrid MD [address] [place] [phone] Brandon Leon MD [address] [place] [phone] Hematemesis, unspecified whether nausea present (Primary Dx); Chronic respiratory failure with hypoxia (HCC-CMS); Other cirrhosis of liver (HCC-CMS); Pancytopenia (HCC-CMS); Stage 3a chronic kidney disease (HCC-CMS) Discharge Disposition: Home or Self Care [...] Job Start Date 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 No / Unsure 04/28/2023 21:31 EDT documented as of this encounter Last Filed Vital Signs Vital Sign Reading Time Taken Comments Blood Pressure 96/53 05/03/2023 0541 EDT Pulse 96 04/29/20232055 EDT Temperature 36.1 ??C (97 ??F) 05/03/2023 0541 EDT Respiratory Rate 16 05/03/2023 0541 EDT Oxygen Saturation 95% 05/03/2023 0541 EDT Inhaled Oxygen Concentration - - Weight 112.2 kg (247 lb 5.7 oz) 05/03/2023 0541 EDT Height 162.6 cm (5' 4) 04/28/20232129 EDT Body Mass Index 42.46 04/28/20232129 EDT documented in this encounter Functional Status [...] Franca Marquez RN documented in this encounter Discharge Summaries * Brandon Leon MD - 05/03/2023 0908 EDT HOSPITAL MEDICINE DISCHARGE SUMMARY Primary Care Provider: Emigdio Veronica III Attending Physician: Brandon Leon* Admit Date: 04/29/23 Discharge Date: 05/03/2023 Disposition (location): home Condition at Discharge: Improved Reason for Admission (chief complaint): hematemesis Principal/Final Diagnosis: Hematemesis, unspecified whether nausea present Additional Problems Managed in the Hospital: Active Hospital Problems Diagnosis Date Noted ??? *Hematemesis, unspecified whether nausea present 04/29/2023 ??? Stage 3a chronic kidney disease (HCC) 04/29/2023 Class: Permanent ??? Hematemesis 04/29/2023 ??? Chronic respiratory failure with hypoxia (HCC-[facility]) (HCC) 10/02/2021 ??? Other cirrhosis of liver (HCC-[facility]) 09/30/2017 -NAFLD related cirrhosis with history of decompensation, chronic portal htn, hepatic encephalopathy, small esophageal varices on EGD in 2019, thrombocytopenia/hypersplenism, portal gastropathy -s/p partial splenic embolization (09/28/21) -portal vein thrombosis -Hep C Past provider: Dr. Ijeoma Smith, GI Department in [facility] for long-standing decompensated liver cirrhosis ??? Pancytopenia (HCC) 07/18/2015 -bone marrow biopsy at [facility] in 2012: maturing trilineage hematopoiesis with no underlying hematopoietic abnormalities Resolved Hospital Problems No resolved problems to display. Transition of care: [facility] Transition of Care report automatically routed to PCP office on discharge Clinical Issues Needing Follow-up 1. Pertinent medication changes: - start cefpodoxime 200mg BID x 3 days to complete 10 days course for SBP ppx - stop trazodone 100mg at bedtime - start mirtazapine 7.5mg at bedtime - stop chlorzoxazone due to liver dysfunction (and patient finds it ineffective) - start lidocaine 5% patch ([place] approved at discharge) 2. Recommended follow-up tests/procedures needed: - PCP follow-up for hospital discharge 3. Anticoagulation on discharge: Yes - continuation of prior to admission therapy WITHOUT changes Indication(s): VTE treatment Medication: heparin or low molecular weight heparin ALONE (enter details): lovenox 60mg daily 4. Changes to goals of care at time of discharge (if applicable): N/A Hospital Course: Tara Boothe is a 62 y.o. 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 On presentation to the ED pt was afebrile, with SpO2 WNL on her baseline 2L NC. She was initially normotensive, however BP trended down and she received 2 L IVF, then maintenance fluids, with appropriate response. She had no tachycardia. Her labs were most notable for Hgb 11.6 -> 11.1 over 4 hours (baseline ~12), mild hypokalemia, and a Cr at baseline. Stool Guaiac was negative. CT abdomen/pelvis had no acute abnormalities. Pt received IVF, Zofran, and oxycodone in the ED and was admitted [facility] for further management of upper GI bleed. She had one additional episode of small volume hematemesis the night of admission, however vital signs and hemoglobin remained stable on serial monitoring. Her DONATION SPECIALIST lovenox for DVT treatment was resumed without evidence of further bleeding. Her nausea and vomiting improved and she was tolerating a no rmal diet. On day of discharge, patient was medically cleared for discharge to home with family support. All patient questions were answered and patient felt comfortable with discharge plan. Relevant Imaging/Procedures Performed: CT Abdomen Pelvis W Contrast 04/29/23 1. No acute abnormality in the abdomen and pelvis. 2. Chronic nonocclusive portal/splenic thrombosis, not significantly changed. 3. Splenomegaly with chronic infarcts, not significantly changed. 4. Cirrhosis, with stable intrahepatic portosystemic shunt right lobe, no mass.. 5. Mild diverticulosis 6. Prior hysterectomy, cholecystectomy, appendectomy, and ventral hernia repair. Results Pending at Discharge: Test results still pending from this admission None Upcoming Appointments May 05, 2023 11:30 TRANSITION OF CARE FOLLOW UP with Emigdio Veronica III, MD [facility] [place] ([facility]) [address] [facility] [id number] May 11, 2023 13:20 Pre Admission Testing Call with [facility] PAT CALL ROOM 4 [facility] Pre-Surgical Testing (--) [address] [facility] [id number] May 18, 2023 15:30 (Arrive by 14:30) Colonoscopy with Abigail Ashley MD, Anesthesia [facility] - [facility] ([facility] All Departments) [address] [facility] [address] Jun 20, 2023 13:40 Follow Up Visit with Loraine Hu PA-C [facility] [place] [facility] - [facility] ([facility] Center) [address] [facility] [address] Aug 01, 2023 14:40 Liver Office Visit with Micheal Moseley MD PhD [facility] (--) [address] [facility] [id number] Sabina Welch MD Family Medicine, PGY2 05/03/23 13:09 #[id number] Secure Chat ATTENDING ATTESTATION: Date of service: 05/03/2023 I have interviewed and examined the patient and discussed with the housestaff. I agree with and edited (in blue) the findings and plan of care as documented in the note above. I spent a total of 35 minutes on the unit directly in the care of this patient today Brandon Leon MD Internal Medicine Hospitalist Service 05/03/2023 13:31 documented in this encounter Discharge Instructions * Discharge Instr - AVS First Page* Sabina Welch MD - 05/03/2023 11:18 EDT Medication Changes: - start cefpodoxime twice daily for 3 more days - continue zofran as needed for nausea - start mirtazapine at bedtime - stop trazodone at bedtime Follow-Up: - please follow-up with your Primary Care provider within 1 week for hospital discharge follow-up documented in this encounter Medications at Time of Discharge diclofenac sodium gel Apply 2 g topically [...] misc (non-drug; combo route) route at bedtime. albuterol 90 mcg/actuation inhaler Inhale 1-2 Puffs as directed every 4 hours as needed for Wheezing. 1 Inhaler 04/13/2021 3 cefpodoxime (VANTIN) 200 mg tablet Take 1 Tablet by mouth every 12 hours for 3 days. 5 Tablet 05/03/2023 3 enoxaparin (LOVENOX) 60 mg/0.6 mL injection Inject 60 mg into the skin daily. 54 mL 3 02/17/2023 3 fluticasone propionate (FLOVENT DISKUS) 100 mcg/actuation blister with device 4 furosemide (LASIX) 20 mg tablet Take 3 every day. If fluid in legs is well controlled then cut down to 2 every day. 90 Tablet 1 04/26/2023 3 gabapentin (NEURONTIN) 300 mg capsule Take 1 Capsule by mouth 3 times daily. 270 Capsule 03/12/2023 3 levothyroxine (SYNTHROID) 25 mcg tablet TAKE 1 TABLET BY MOUTH EVERY DAY 90 Tablet 1 04/26/2023 4 lidocaine 5 % (LIDODERM) 5 % patch Place 1 Patch onto the skin daily for 14 days. 14 Patch 05/04/2023 3 mirtazapine (REMERON) 7.5 mg tablet Take 1 Tablet by mouth at bedtime. 30 Tablet 05/03/2023 3 ondansetron (ZOFRAN) 4 mg tablet Take 1 Tablet by mouth every 8 hours as needed for Nausea. 10 Tablet 1 05/03/2023 3 oxyCODONE (ROXICODONE) 5 mg immediate release tablet Take 1 Tablet by mouth 3 times daily as needed for up to 28 days for Pain. Daily Max: 15 mg 84 Tablet 04/12/2023 3 pantoprazole (PROTONIX) 40 mg tablet Take 1 Tablet by mouth 2 times daily for 30 days. 60 Tablet 05/03/2023 3 spironolactone (ALDACTONE) 100 mg tablet TAKE 1 TABLET BY MOUTH EVERY DAY 90 Tablet 1 11/19/2022 3 sucralfate (CARAFATE) 1 gram tablet TAKE [...] Refills Last Filled Start Date End Date pantoprazole (PROTONIX) 40 mg tablet Take 1 Tablet by mouth 2 times daily for 30 days. 60 Tablet 05/03/2023 06/02/2023 lidocaine 5 % (LIDODERM) 5 % patch Place 1 Patch onto the skin daily for 14 days. 14 Patch 05/04/2023 05/18/2023 cefpodoxime (VANTIN) 200 mg tablet Take 1 Tablet by mouth every 12 hours for 3 days. 5 Tablet 05/03/2023 05/06/2023 mirtazapine (REMERON) 7.5 mg tablet Take 1 Tablet by mouth at bedtime. 30 Tablet 05/03/2023 06/20/2023 ondansetron (ZOFRAN) 4 mg tablet Take 1 Tablet by mouth every 8 hours as needed for Nausea. 10 Tablet 1 05/03/2023 05/07/2023 documented in this encounter Discharge Disposition Disposition Code Departure Means Destination Home or Self Residential documented in this encounter Progress Notes * Chema Barnett, [facility] - 05/03/2023 1054 EDT Multi-Visit Patient (MVP) - Pharmacy Admission Medication Reconciliation Tara Boothe is a 62 y.o. female admitted on 04/28/2023 for Hematemesis, unspecified whether nausea present Prior to admission medication list reviewed and updated with any pertinent changes below. Please see medication section below for details. Please take special note of updated DONATION SPECIALIST medication list during discharge process. Pharmacist Interventions/Recommendations: 1. Chlorzoxazone: Patient reports taking medication once to twice daily at home. Patient endorses receiving minimal benefit if any from medication. Chlorzoxazone is extensively metabolized by the liver and recommended to be used cautiously in patients with hepatic dysfunction. Given lack of efficacy, reasonable to consider alternative therapies for chronic pain. Per chart review, patient has trailed and failed cyclobenzaprine. Alternatives for this patient given medication list and hepatic dysfunction include baclofen and methocarbamol. Per chart review methocarbamol likely requires prior authorization in outpatient setting. a. Recommendation: Please evaluate need for continued chlorzoxazone therapy in setting of hepatic dysfunction and lack of efficacy. Consider alternatives for pain management if required. 2. Lidocaine 4% Patches: Patient endorses lidocaine patches have worked very well in past to control s/sx of pain. However, patient reports prescription insurance will only cover lidocaine 5%. Due tocost concerns, patient has not obtained lidocaine 4% patches over the counter. a. Recommendation: Please consider sending prescription to outpatient pharmacy for lidocaine 5% patches to be filled through prescription insurance. Medication History Obtained from: Patient (Self) Medication changes/updates below are highlighted in Red: Medication Sig Notes ??? albuterol 90 mcg/actuation inhaler Inhale 1-2 Puffs as directed every 4 hours as needed for Wheezing. ??? chlorzoxazone (PARAFON FORTE) 500 mg tablet TAKE 1 TABLET BY MOUTH THREE TIMES A DAY NEEDED FOR MUSCLE SPASMS Patient reports taking 1-2 tablets daily however, does not believe therapy is providing any benefit for pain control. ??? diclofenac sodium gel Apply 2 g topically 2 times daily as needed for knee pain ??? enoxaparin (LOVENOX) 60 mg/0.6 mL injection Inject 60 mg into the skin daily. ??? fluticasone propionate (FLOVENT DISKUS) 100 mcg/actuation blister with device 1 Puff twice daily ??? furosemide (LASIX) 20 mg tablet Take 3 every day. If fluid in legs is well controlled then cut down to 2 every day. Patient endorses continuing to require 3 tablets (60 mg) daily ??? gabapentin (NEURONTIN) 300 mg capsule Take 1 Capsule by mouth 3 times daily. ??? INCRUSE ELLIPTA 62.5 mcg/actuation INHALE 1 PUFF BY MOUTH DIRECTED DAILY ? lactulose (CHRONULAC) 10 gram/15 mL solution TAKE 15-30ML BY MOUTH DAILY NEEDED FOR CONSTIPATION. TARGET GOAL OF TWO BOWEL MOVEMENTS DAILY ??? levothyroxine (SYNTHROID) 25 mcg tablet TAKE 1 TABLET BY MOUTH EVERY DAY ? Patient requires new prescription for lidocaine patches. Insurance will only cover 5%. ??? naloxone (NARCAN) 4 mg/actuation nasal spray 0.1 mL by nasal route as needed for Opioid Reversal. Repeat every 2-3 minutes if not effective and overdose is suspected. ??? ondansetron (ZOFRAN) 4 mg tablet TAKE [...] Take 1 Tablet by mouth 2 times daily. ? spironolactone (ALDACTONE) 100 mg tablet TAKE 1 TABLET BY MOUTH EVERY DAY ??? sucralfate (CARAFATE) 1 gram tablet TAKE 1 TABLET BY MOUTH FOUR TIMES A DAY ??? traZODone (DESYREL) 100 mg tablet Take 2 Tablets by mouth at bedtime. ??? venlafaxine (EFFEXOR-XR) 150 mg XR capsule Take 1 Capsule by mouth daily. Preferred Pharmacy: [facility]/pharmacy #[id number] - [place], [place] - [address] Barriers to adherence: None Medication management strategy: Pill box Patient's assessment of efficacy and tolerability of medications: Tien Barnett, Pharm.D. Multi-Visit Patient (MVP) Pharmacist Danielle Chat Phone: [phone] Pager: [phone] * Kimmy John - 05/03/2023 0917 EDT CM Discharge Note CASE MANAGEMENT DISCHARGE NOTE DISCHARGE DATE/TIME: 05/03/23 time TBD. DESTINATION: Home- [facility] [phone] (If discharging to [facility]) COVID swab ordered and completed: NA. TRANSPORTATION: Friend. ACCEPTING MD AND NUMBER: NA. RN REPORT/UNIT: NA. ELECTRIC CLOCK MECHANIC/CHARGE/MD NOTIFIED (Y/N): Yes. FORMS: (Acute to acute, COLST, MOLST, KIMI, Screen, PASRR, Ambulance): NA. IM SIGNED (Y/NA): Yes. HOME HEALTH: NA. DME: NA. PHARMACY/PRESCRIPTIONS: [facility]. MEDS TO BEDS UTILIZED : YES. Patient and/or family who participated in discharge plan: Patient. Destination Confirmation: This Barge Pilot has personally and directly confirmed with patient's receiving support person thefollowing discharge plan and destination details. Support Person's Name: NA. Contact Information: NA. Destination Address & Description: NA. Anticipated Discharge date/time: NA. Transportation modality: NA. The aforementioned support person acknowledged an understanding to the information shared with thisplan. Pt has decision-making capacity. OTHER: Pt is medically ready for d/c. Pt will go home with her roommates with her friend or family to drive. No identified CM needs. PAM Vargas Design Draftsman II Epic chat preferred. 05/03/2023 9:19 * Kimmy John - 05/02/2023 1301 EDT Case Management Progress Note Level of Care: Acute. Discharge plan/estimated date: Potentially 05/03 back home. LTC Medicaid Status: NA. Barriers to d/c: Acute medical care. Support Network: SonGonzález, . Next Steps: Per PPR, pt transitioning back to her home meds today. Potential d/c tomorrow. Plan will be for pt to return home with no identified CM needs. Kimmy John MSW Design Draftsman II Epic chat preferred. 05/02/2023 13:04 * Sabina Welch MD - 05/02/2023 0718 EDT Medicine Progress Note Service Date: 05/02/2023 Admit Date: 04/28/2023 21:21 Reason for Admission: 62 y.o. female admitted with a chief complaint of hematemasis and now with a principal diagnosis of upper GI bleed. 24 Hour Events: - resumed DONATION SPECIALIST lovenox for DVT treatment Subjective/Objective Subjective Feeling okay this morning - continuing to have abdominal cramping and loose stools. 1 episode of vomiting last night that did not contain any visible blood. Appetite coming back this morning, tolerating liquids more than solid food. 3 loose BMs already this morning. Asks about restarting her home diuretic as she is starting to notice some swelling in her feet. Review of Systems A ten point review of systems was performed and was negative except for pertinent positives noted in the HPI Objective Vital Signs Temp: [36.1 ??C (97 ??F)-36.3 ??C (97.3 ??F)] , Heart Rate: [63 BPM-80 BPM] , Resp: [15-18] , BP: (110-115)/(62-68) , SpO2: [96 %-97 %] on room air (though uses 2L all times at home) Physical Exam GEN: resting comfortably in bed, NAD HEENT: EOMI, MMM, anicteric sclera CV: RRR PULM: breathing comfortably on room air, anterior lung godwin clear b/l ABD: soft, non distended. Diffuse tenderness to light palpation, no rebound or guarding EXT: wwp, trace peripheral edema b/l, reports having calf tenderness chronically NEURO: AOx3, no focal weakness SKIN: no lesions of concern PSYCH: appropriate affect Is PICC or central line present? No, PICC/Central line not present. Labs Recent Labs 04/30/23 0615 04/30/23 1811 05/01/23 0553 WBC 2.83* 3.94* 3.77* RBC 3.62* 4.02 3.85* HGB 11.0* 12.4 11.8 HCT 32.8* 36.6 34.9 MCV 91 91 91 MCH 30.4 30.8 30.6 MCHC 33.5 33.9 33.8 PLT 64* 77* 63* Recent Labs 04/30/23 0615 05/01/23 0554 NA 136 138 K 3.6 4.0 CL 100 102 CO2 27 26 BUN 9* 12 CREATININE 1.01 0.95 CALCIUM 8.4* 8.8 Imaging Reviewed: No new imaging. Assessment/Plan Assessment Tara Boothe is a 62 y.o. 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 Upper GI bleed likely Tiffany-Bhandari tear. At this point >24 hours without hematemesis, and Hgb and hemodynamics remain stable. Continues to have nausea and diffuse crampy abdominal pain, responsive to ondansetron and tolerating PO liquids and some solids. Will transition to PO medications today and anticipate discharge home tomorrow with family support. Plan Hematemesis - improving Borderline hypotension - resolved History of UGIB 2/2 duodenal ulcer Most likely Tiffany-Bhandari tear. Tolerating PO. Last episode of hematemesis was overnight 04/29-. S/p CT AP without acute pathology. EGD in 2021 without varices. -Continue DONATION SPECIALIST pantoprazole 40 mg BID (switched back to PO), sucralfate -Ondansetron 4 mg PO q6 hrs PRN (QTc 458 on admission) -Pt okay for transfusion if indicated -Regular diet as tolerated -Maintain PIV x2 -Active T&S on 04/29 -CBC daily -Defer GI consult, will consult for persistent/unstable bleeding ?? Chronic splenic vein thrombus -continue DONATION SPECIALIST enoxaparin 60 mg daily, with careful monitoring of CBC as above -Follows with Hematology as outpatient ?? QUIROZ cirrhosis, compensated -Volume: No ascites noted on CT A/P or clinically apparent on exam. Resume DONATION SPECIALIST lasix and spironolactone today 05/02 -Infection: Low concern for SBP given minimal to no ascites. CTX x7 days for ppx in the setting of GIB -> switch to cefpodoxime tomorrow through 05/05 -Bleeding: EGD 2021 without varices, see management of hematemesis above. -Encephalopathy: S/p TIPS. No evidence of encephalopathy on presentation. Continue DONATION SPECIALIST lactulose (pt takes PRN less than weekly) and titrate to 2-3 BMs a day. -Screening: HCC screening UTD. MELD 3.0: 10 at 04/30/2023 6:15 MELD-Na: 8 at 04/30/2023 6:15 Calculated from: Serum Creatinine: 1.01 mg/dL at 04/30/2023 6:15 Serum Sodium: 136 mmol/L at 04/30/2023 6:15 Total Bilirubin: 0.8 mg/dL (Using min of 1 mg/dL) at 04/28/2023 21:33 Serum Albumin: 4.0 g/dL (Using max of 3.5 g/dL) at 04/28/2023 21:33 INR(ratio): 1.2 Ratio at 04/28/2023 21:33 Age at listing (hypothetical): 62 years Sex: Female at 04/30/2023 6:15 ??Depression/anxiety/insomnia -Continue DONATION SPECIALIST venlafaxine -Switched DONATION SPECIALIST trazodone to mirtazapine 7.5 mg at bedtime ?? Other stable chronic conditions: ?? CKD3a -Renal function at baseline on presentation, continue to trend daily ?? Pancytopenia -Mild leukopenia and thrombocytopenia 2/2 hypersplenism, per Hematology notes -Currently at baseline, continue to trend daily ?? Chronic hypoxic respiratory failure COPD without acute exacerbation HUEY -Currently on baseline 2L NC -Titrate supplemental O2 to maintain SpO2 88-92% -Pt does not use CPAP -Continue DONATION SPECIALIST Incruse Ellipta, Flovent, albuterol inhaler as needed ?? Chronic pain -Continue DONATION SPECIALIST oxycodone 5 mg TID PRN (VPMS verified), diclofenac gel, gabapentin, lidocaine patch -Hold DONATION SPECIALIST chlorzoxazone (nonformulary) ?? Hypothyroid -Continue DONATION SPECIALIST levothyroxine ?? VTE Prophylaxis Resume DONATION SPECIALIST enoxaparin 60 mg daily ?? Code: Full Code Discussed with pt on admission -- would not want to be sustained on a ventilator indefinitely, but okay for CPR and trial of intubation. 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 Son González is her designated decision-maker. ?? Discharge Plan Anticipate home tomorrow 05/03 with family support ?? Consults None Sabina Welch MD Family Medicine, PGY2 05/02/23 7:23 #[id number] Secure Chat Cosigned by Wayne Madrid MD at 05/02/2023 17:52 EDT Associated attestation - Wayne Madrid MD - 05/02/2023 1752 EDT I interviewed and examined the patient. I have personally reviewed interval events, laboratory data, and imaging. I discussed the case with the inpatient resident team. I agree with findings and planof care as documented by the resident (or have edited in Blue). Wayne Madrid MD * Gely Funk MD - 05/01/2023 0720 EDT Medicine Progress Note Service Date: 05/01/2023 Admit Date: 04/28/2023 21:21 Reason for Admission: 62 y.o. female admitted with a chief complaint of hematemasis and now with a principal diagnosis of upper GI bleed. 24 Hour Events: - Hgb stable - Scheduled lactulose Subjective/Objective Subjective Feeling all right this morning. Still with diffuse abdominal cramping and nausea, though only vomited once yesterday (nonbloody). Had a very large loose stool this AM (also nonbloody). Only ate lightly yesterday but has been able to drink well. Review of Systems A ten point review of systems was performed and was negative except for pertinent positives noted in the HPI Objective Vital Signs Temp: [36.1 ??C (97 ??F)-37.3 ??C (99.1 ??F)] , Heart Rate: [75 BPM-78 BPM] , Resp: [16] , BP: (102-131)/(59-85) , SpO2: [93 %-96 %] on room air (though uses 2L all times at home) Physical Exam GEN: alert, pleasant, in NAD HEENT: EOMi, MMM, anicteric sclera CV: RRR, nl S1-2, no MRG PULM: ctab, normal wob on ra ABD: soft, non distended. Diffuse tenderness to light palpation worst at midline, with voluntary guarding and no rebound. EXT: wwp, no p edema, reports having calf tenderness chronically NEURO: AOx3, no focal weakness SKIN: no lesions of concern PSYCH: appropriate affect Is PICC or central line present? No, PICC/Central line not present. Labs Recent Labs 04/28/23213204/29/23 0143 04/29/23 0532 04/29/23 1503 04/30/23 0615 04/30/23 1811 05/01/23 0553 WBC 4.14 < > 2.70* < > 2.83* 3.94* 3.77* RBC 4.22 < > 3.60* < > 3.62* 4.02 3.85* HGB 13.0 < > 11.1* < > 11.0* 12.4 11.8 HCT 37.5 < > 32.7* < > 32.8* 36.6 34.9 MCV 89 < > 91 < > 91 91 91 MCH 30.8 < > 30.8 < > 30.4 30.8 30.6 MCHC 34.7 < > 33.9 < > 33.5 33.9 33.8 PLT 86* < > 70* < > 64* 77* 63* NEUTROABS 3.07 -- 1.80* -- -- -- -- < > = values in this interval not displayed. Recent Labs 04/28/23213204/30/23 0615 05/01/23 0554 NA 136 136 138 K 3.4* 3.6 4.0 CL 98 100 102 CO2 28 27 26 BUN 8* 9* 12 CREATININE 1.26* 1.01 0.95 CALCIUM 9.1 8.4* 8.8 Recent Labs 04/28/23 2133 TBIL 0.8 ALKPHOS 122 AST 30 ALT 21 Imaging Reviewed: No new imaging. Assessment/Plan Assessment Tara Boothe is a 62 y.o. 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 Upper GI bleed likely Tiffany-Bhandari tear. At this point >24 hours without hematemesis, and Hgb and hemodynamics remain stable, so will restart her DONATION SPECIALIST enoxaparin with careful monitoring. Continuesto have nausea and diffuse crampy abdominal pain, responsive to ondansetron and tolerating PO liquids and some solids. Will change lactulose back to PRN, given large BM this morning and + abdominal cramping. Plan Hematemesis - improving Borderline hypotension - resolved History of UGIB 2/2 duodenal ulcer Most likely Tiffany-Bhandari tear. Tolerating PO. Last episode of hematemesis was overnight 04/29-. S/p CT AP without acute pathology. EGD in 2021 without varices. -CBC spaced to daily -Active T&S on 04/29 -Continue DONATION SPECIALIST pantoprazole 40 mg BID (switched back to PO), sucralfate -Ondansetron 4 mg PO or IV q6 hrs PRN (QTc 458 on admission) -Pt okay for transfusion if indicated -Regular diet as tolerated -Maintain PIV x2 -Defer GI consult, will consult for persistent/unstable bleeding ?? Chronic splenic vein thrombus -Restart DONATION SPECIALIST enoxaparin 60 mg daily, with careful monitoring of CBC as above -Follows with Hematology as outpatient ?? QUIROZ cirrhosis, compensated -Volume: No ascites noted on CT A/P or clinically apparent on exam. Hold DONATION SPECIALIST furosemide, spironolactone until BP stabilizes. -Infection: Low concern for SBP given minimal to no ascites. CTX x7 days for ppx in the setting of GIB -> switch to cefpodoxime tomorrow through 05/05 -Bleeding: EGD 2021 without varices, see management of hematemesis above. -Encephalopathy: S/p TIPS. No evidence of encephalopathy on presentation. Continue DONATION SPECIALIST lactulose (pt takes PRN less than weekly) and titrate to 2-3 BMs a day. -Screening: HCC screening UTD. MELD 3.0: 10 at 04/30/2023 6:15 MELD-Na: 8 at 04/30/2023 6:15 Calculated from: Serum Creatinine: 1.01 mg/dL at 04/30/2023 6:15 Serum Sodium: 136 mmol/L at 04/30/2023 6:15 Total Bilirubin: 0.8 mg/dL (Using min of 1 mg/dL) at 04/28/2023 21:33 Serum Albumin: 4.0 g/dL (Using max of 3.5 g/dL) at 04/28/2023 21:33 INR(ratio): 1.2 Ratio at 04/28/2023 21:33 Age at listing (hypothetical): 62 years Sex: Female at 04/30/2023 6:15 ??Depression/anxiety/insomnia -Continue DONATION SPECIALIST venlafaxine -Switched DONATION SPECIALIST trazodone to mirtazapine 7.5 mg at bedtime ?? Other stable chronic conditions: ?? CKD3a -Renal function at baseline on presentation, continue to trend daily ?? Pancytopenia -Mild leukopenia and thrombocytopenia 2/2 hypersplenism, per Hematology notes -Currently at baseline, continue to trend daily ?? Chronic hypoxic respiratory failure COPD without acute exacerbation HUEY -Currently on baseline 2L NC -Titrate supplemental O2 to maintain SpO2 88-92% -Pt does not use CPAP -Continue DONATION SPECIALIST Incruse Ellipta, Flovent, albuterol inhaler as needed ?? Chronic pain -Continue DONATION SPECIALIST oxycodone 5 mg TID PRN (VPMS verified), diclofenac gel, gabapentin, lidocaine patch -Hold DONATION SPECIALIST chlorzoxazone (nonformulary) ?? Hypothyroid -Continue DONATION SPECIALIST levothyroxine ?? VTE Prophylaxis Resume DONATION SPECIALIST enoxaparin 60 mg daily ?? Code: Full Code Discussed with pt on admission -- would not want to be sustained on a ventilator indefinitely, but okay for CPR and trial of intubation. 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 Son González is her designated decision-maker. ?? Discharge Plan TBD pending clinical course ?? Consults None Patient discussed with Dr. Jay Jay Gresham and the FMS team. Gely Funk MD Family Medicine PGY-3 Secure chat (preferred) or #[phone] Cosigned by Jay Jay Gresham MD at 05/01/2023 13:24 EDT Associated attestation - Jay Jay Gresham MD - 05/01/2023 1324 EDT Attestation: I performed or was present during the brown or critical portions of the visit and participated in the management of the patient on 05/01. I agree with the findings and plan of care as documented in the resident's/fellow's note. Jay Jay Gresham MD 05/01/2023 13:23 * Jay Jay Gresham MD - 04/30/2023 0645 EDT Medicine Progress Note Service Date: 04/30/2023 Admit Date: 04/28/2023 21:21 Reason for Admission: 62 y.o. female admitted with a chief complaint of hematemasis and now with a principal diagnosis of upper GI bleed. 24 Hour Events: - admitted yesterday - NAEO Subjective/Objective Subjective Had another bout of hematemasis overnight, not as bad as her previous episodes before. Has been drinking juice and water and had some of her dinner last night. Continue to have tenderness in abd. Hasnot stooled for a few days. Review of Systems A ten point review of systems was performed and was negative except for pertinent positives noted in the HPI Objective Vital Signs Temp: [35.5 ??C (95.9 ??F)-36.7 ??C (98.1 ??F)] , Heart Rate: [66 BPM-79 BPM] , Resp: [11-18] , BP:(83-118)/(44-72) , SpO2: [92 %-98 %] on room air (though uses 2L all times at home) Physical Exam GEN: alert, pleasant, in NAD HEENT: EOMi, MMM, anicteric sclera CV: RRR, nl S1-2, no MRG PULM: ctab, normal wob on ra ABD: soft, non distended. Tender to palpation in the LUQ, reports chronic pain from splenic vein thrombosis EXT: wwp, no p edema, reports having calf tenderness chronically NEURO: AOx3, no focal weakness SKIN: no lesions of concern PSYCH: appropriate affect Is PICC or central line present? No, PICC/Central line not present. Labs Recent Labs 04/28/23 2133 04/29/23 0143 04/29/23 0532 04/29/23 1503 04/30/23 0615 WBC 4.14 < > 2.70* 2.55* 2.83* RBC 4.22 < > 3.60* 3.72* 3.62* HGB 13.0 < > 11.1* 11.3* 11.0* HCT 37.5 < > 32.7* 34.0* 32.8* MCV 89 < > 91 91 91 MCH 30.8 < > 30.8 30.4 30.4 MCHC 34.7 < > 33.9 33.2 33.5 PLT 86* < > 70* 73* 64* NEUTROABS 3.07 -- 1.80* -- -- < > = values in this interval not displayed. Recent Labs 04/28/23 2133 NA 136 K 3.4* CL 98 CO2 28 BUN 8* CREATININE 1.26* CALCIUM 9.1 Recent Labs 04/28/233 TBIL 0.8 ALKPHOS 122 AST 30 ALT 21 Imaging Reviewed: No new imaging. Assessment/Plan Assessment Tara Boothe is a 62 y.o. 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 Upper GI bleed likely tiffany-bhandari tear. Had another episode overnight, which was not witnessed ordocumented. Hgb has been stable. No symptoms of acute blood loss. Has some abd pain and has not passed BMs for days. At risk for constipation due to chronically on opioid, which puts her high risk for hepatic encephalopathy s/p TIPS. Plan to restart lactulose. Plan Hematemesis - ongoing, slowly improving Borderline hypotension History of UGIB 2/2 duodenal ulcer Tolerating PO. Had 1x hematemesis overnight. S/p CT AP without acute pathology. EGD in 2021 withoutvarices. Likely tiffany-marvin tear. BP with MAP in high 60s- low 70s. - continue monitor BP and hgb closely (CBC q12) - Active T&S on 04/29 -Continue DONATION SPECIALIST pantoprazole 40 mg BID (switched to IV), sucralfate -Ondansetron 4 mg PO or IV q6 hrs PRN (QTc 458 on admission) -Pt okay for transfusion if indicated -Regular diet as tolerated -Maintain PIV x2 -Defer GI consult, will consult for persistent/unstable bleeding ?? Chronic splenic vein thrombus -Hold DONATION SPECIALIST enoxaparin 60 mg daily due to hematemesis; resume when bleeding has resolved -Follows with Hematology as outpatient ?? QUIROZ cirrhosis, compensated -Volume: No ascites noted on CT A/P or clinically apparent on exam. Hold DONATION SPECIALIST furosemide, spironolactone until BP stabilizes. -Infection: Low concern for SBP given minimal to no ascites. CTX x7 days for ppx in the setting of GIB. -Bleeding: EGD 2021 without varices, see management of hematemesis above. -Encephalopathy: S/p TIPS. No evidence of encephalopathy on presentation. Continue DONATION SPECIALIST lactulose (pt takes PRN less than weekly) and titrate to 2-3 BMs a day -Screening: HCC screening UTD. - Given hematemsis overnight and soft BPS will do early afternoon H/H MELD-Na score: 8 at 04/30/2023 6:15 MELD score: 8 at 04/30/2023 6:15 Calculated from: Serum Creatinine: 1.01 mg/dL at 04/30/2023 6:15 Serum Sodium: 136 mmol/L at 04/30/2023 6:15 Total Bilirubin: 0.8 mg/dL (Using min of 1 mg/dL) at 04/28/2023 21:33 INR(ratio): 1.2 Ratio at 04/28/2023 21:33 Age: 62 years ??Depression/anxiety/insomnia Recently saw PCP. Changed from Trazodone to mirtazapine. -Continue DONATION SPECIALIST venlafaxine - start mirtazapine 7.5 mg tonight at bedtime. ?? Other stable chronic conditions: ?? CKD3a -Renal function at baseline on presentation, continue to trend daily ?? Pancytopenia -Mild leukopenia and thrombocytopenia 2/2 hypersplenism, per Hematology notes -Currently at baseline, continue to trend daily ?? Chronic hypoxic respiratory failure COPD without acute exacerbation HUEY -Currently on baseline 2L NC -Titrate supplemental O2 to maintain SpO2 88-92% -Pt does not use CPAP -Continue DONATION SPECIALIST Incruse Ellipta, Flovent, albuterol inhaler as needed ?? Chronic pain -Continue DONATION SPECIALIST oxycodone 5 mg TID PRN (VPMS verified), diclofenac gel, gabapentin, lidocaine patch -Hold DONATION SPECIALIST chlorzoxazone (nonformulary) ?? Hypothyroid -Continue DONATION SPECIALIST levothyroxine ?? VTE Prophylaxis Hold DONATION SPECIALIST enoxaparin 60 mg daily due to hematemesis, resume when able SCDs ?? Code: Full Code Discussed with pt on admission -- would not want to be sustained on a ventilator indefinitely, but okay for CPR and trial of intubation. 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 Son González is her designated decision-maker. ?? Discharge Plan TBD pending clinical course ?? Consults None Patient discussed with Dr. Jay Jay Gresham and the FMS team. Humble Rodriguez M.D. 04/30/2023 6:47 Family Medicine PGY1, [phone] or [place]lin Secure Chat Attestation: I performed or was present during the brown or critical portions of the visit and participated in the management of the patient on 04/30. I agree with the findings and plan of care as documented in the resident's/fellow's note. Jay Jay Gresham MD 04/30/2023 13:06 * Aleksandr Marquez RN - 04/29/2023 1417 EDT FOUR EYES SKIN ASSESSMENT Four Eyes skin assessment was performed on admission to the unit by Aleksandr Marquez RN and Darshan Santiago RN. Patient has the following devices at the time of this assessment: O2 sat probe and O2 NC. Device related pressure injury present? No Areas of concern: Fill in detail for areas of concern [] Occiput [] Nose [] Ear [] Lip [] Scapula [] Spinous process [] Shoulder [] Elbow [] Iliac crest [] Sacrum/coccyx [] Ischial tuberosity [] Trochanter [] Knee [] Malleolus [] Heel [] Toe [x] Other: blanchable redness under left breast Last Sajan Score: 19 Instructions: ??? Add LDA for any identified wounds ??? Add [place] image for any suspected PI or non surgical wounds ??? Order wound consult if suspected PI identified ? ? If Sajan is < or = to 16, initiate Pressure Injury Prevention Bundle ([id number]). 04/29/2023 14:18 * Kimmy John - 04/29/2023 1129 EDT Initial Case Management/Social Work Assessment and Discharge Plan/Readmission Risk Assessment REASON FOR ADMISSION: Hematemesis, unspecified whether nausea present Patient understands reason for admission: Yes PATIENT INFO VERIFIED: PCP, Contact Info, Address Type of housing (single family, condo, apartment, usp, single room occupancy, [facility] funded hotel room, group fdc) - Rents a bedroom in a [facility]. Who does the patient live with? Roommate. Does the patient have access to their own bedroom/bathroom/kitchen - or is it shared with others? Shared. Discharge Delay Risk Assessment 2. Hospitalization: Unplanned admission 3. Family Structure: Living alone Major Barrier day total 1-6: 2 Does the patient meet criteria to be escalated?: No LIVING ARRANGEMENTS AND ACCESSIBILITY ISSUES: Living Arrangements: Apartment, Other (Comment) (Roommates.) Levels: 1 Stairs to enter: 2 Handicap access: Grab bars Bathroom located on bedroom level?: Yes What in home social supports are available to the patient? None Is 24/7 care available? NA ADVANCED DIRECTIVES, POA &/or COLST IN PLACE: DIRECTIVES FOR FINANCES: TRANSPORTATION: Transportation: Family Expected Discharge on IV Antibiotics: No Final Discharge Destination: Home. Patient expects to be discharged to: Home. CULTURAL, MOSQUE and/or LANGUAGE factors affecting health care/discharge planning: Insurance Information: [facility] and Medicaid. Nutrition: DISCHARGE RISK ASSESSMENT: Lives at home with limited or no community support;Diagnosis of COPD;Polypharmacy, > 7 medications Total # selected above: Score of 2 - 4: This patient is at MODERATE RISK for re-hospitalization Tentative plan to address the risk of re-hospitalization for those at HIGH MODERATE RISK: Bring risk factors to attention of team to be addressed RAPT TOOL: Age: 50-65 Gender: Female Ambulation distance: 2 or more blocks (600ft) Gait device: None Community Services: Home health, MOW, SAS-none of one time a week Will you live with someone who will care for you?: No RAPT Tool Score: 8 Patient expects to be discharged to: Home. SBIRT: SASQ (Single Alcohol Screening Question) How many times in the past year have you had 4 or more drinks in a single day?: Never How many times in the past year have you used an illegal drug or used a prescription medication fornon-medical reasons?: Never FUNCTIONAL STATUS: Activities patient requires assistance: None Assistive Devices: Oxygen (2L at night occassionally provided by [facility].) COMMUNITY RESOURCES/SUPPORTS: Primary Care Provider: Emigdio Veronica III PCP Verified: Specialists: Other (GI and Hematology) Type of Home Health Services: None DME Provider: Pharmacy: [facility]/pharmacy #[id number] - [place], [place] - [address] [place] [address] Home Health: Other: POST HOSPITAL TRANSITION PLAN: Tara Boothe is a 62 y.o. 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 CM met with pt at bedside. Pt was A&Ox3 and pleasantly engaged in assessment. Pt rents a room in a single family home in [place]. Pts living situation is not ideal and she has difficulty with her roommate. Pt is currently working with [facility] [employer] Izabella Snowden to identify alternative housing. Despite pts current challenges, there are no barriers to d/c homewhen she is medically ready. Pts son is supportive and local and she does not access any other community resources. Pt is on O2 at night sometimes (2L) and gets her O2 from [place] [employer]. Plan will be for pt to return home when she is medically ready. She will likely be able to secure aride with family or friend when ready. No identified CM needs at this time. PAM [employer] II Epic chat preferred. 04/29/2023 11:37 KIMMY JOHN 04/29/2023 11:29 * Catrina Jorge - 04/29/2023 0626 EDT Respiratory Consult/Progress Note Indications for Respiratory therapy: ED Eval, COPD, HUEY Data Vitals: Heart Rate: 69 BPM, Resp: 14, SpO2: 100 % FIO2/O2 Device: O2 Flow Rate (L/min): 2 l/min, , O2 Device: Nasal cannula, Protocol Scoring: Bronchodilator/Inhalation Therapy Frequency Bronchodilator - Clinical Indications: History of COPD Breath Sounds: Any abnormal BS decreased Response: No change / no treatment Pulse: <100 Resp Rate: <18 SOB: With exertion Total Score: 2 Comment:: PRN Frequency Based On Total Score: 0-4 = [...] Action/Events Respiratory events; Patient seen in ED by RT for prior diagnosis of HUEY and COPD. Patient has yet to get CPAP machine, currently she wears 2L at night and is comfortable continuing that while inpatient. She is independent in use with MDIs and takes albuterol prn. Will continue. CATRINA JORGE 04/29/23 documented in this encounter H&P Notes * Gely Funk MD - 04/29/2023 0744 EDT Hospital Medicine Admission History & Physical Service Date: 04/29/2023 Admit Date: 04/29/23 Primary Care Provider: Emigdio Veronica III Chief Complaint: Hematemesis HPI Tara Boothe is a 62 y.o. 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 She has been experiencing some conflict with the woman in whose house she rents a room, so took a few days away to go fishing in the [employer]. She got back Tuesday night (04/24) and felt generally unwell, like she overdid it on her trip. Later that evening she began vomiting, and since then has hadpersistent vomiting with any oral intake. She has been tolerating sips of fluids but nothing else, including one of her usual medications for 4 to 5 days. She started seeing streaks of blood in her vomit on Tuesday morning, which has continued with every episode of emesis and progressively worsenedto a half dollar sized amount yesterday. She has not had any clots or coffee-ground emesis. She has had 3 episodes of diarrhea, starting around Tuesday night, without bright red blood or melena in her stool. She has had diffuse abdominal discomfort that is constant. She had a temperature of 100.6 on Tuesday night, but has been afebrile since then. She feels dizzy, shaky, and lightheadedwith movement. She denies dysuria or flank pain. Her abdomen seems a little more bloated than usualsince she has not been able to tolerate her oral diuretics for a few days, but nowhere near as bad as it used to be when she had more significant ascites. She denies any recent NSAID or alcohol intake. On presentation pt was afebrile, with SpO2 WNL on her baseline 2L NC. She was initially normotensive, however BP trended downward to 88/58 and she received 2 L IVF, then maintenance fluids, with appropriate response. She had no tachycardia. Her labs were most notable for Hgb 11.6 -> 11.1 over 4 hours (baseline ~12), K 3.4, Cr 1.26 (baseline ~1.2), and otherwise included a normal lactate x2, normal LFTs, and WBC 2.7 and platelets 70 consistent with her chronic pancytopenia. Stool Guaiac was negative. CT abdomen/pelvis had no acute abnormalities on preliminary read. EKG was normal. Aside from negative COVID/flu/RSV, no other infectious work-up was done. Pt received IVF, Zofran, and oxycodone in the ED. she has had no emesis since arrival. On my evaluation, pt is resting comfortably and denies vomiting or BM since arrival. Her nausea hasimproved with ondansetron and she tolerated PO oxycodone and gabapentin, but is still hesitant to try any PO. Her abdominal discomfort is stable. Review of Systems A complete 10 point ROS was performed and pertinent positive and negative findings listed in HPI, otherwise negative. Past Medical History: Diagnosis Date ??? Anemia Noted 01/24/2023: on Iron ??? Anxiety ??? Asthma Noted 01/24/2023: prescribed inhalers ??? Bursitis right shoulder ??? C. difficile colitis 07/25/2015 Hospitalized after kidney stone removal ??? Chronic kidney disease stable 01/27/23 ??? Cirrhosis of liver (HCC-CMS) ??? Community acquired pneumonia january 2021 ??? COPD exacerbation (HCC-CMS) 04/26/2020 Noted 01/24/2023: inhaler use ??? Depression ??? Drug-seeking behavior Per Dr Amelia Tijerina and notes from [facility] patient misconstrued information to several providers about multiple concurrent opiate prescriptions ??? Environmental allergies ??? Exercise involving walking takes a walk daily for 20 minutes; 01/11/22- weather dependant; Some SOB; cannot do stairs without stopping due to breathing and leg pain- ??? GERD (gastroesophageal reflux disease) Noted 01/24/2023: on med ??? History of kidney stones ??? Hypersplenism syndrome ??? Hypothyroidism ??? Joint replaced 199912/10/2020 nya knees ??? Mental disorder ??? QUIROZ (nonalcoholic steatohepatitis) with cirrhosis ??? Pancytopenia (HCC-CMS) ??? Poor dentition multiple missing teeth- ??? Rheumatoid arthritis ??? Secondary hypercoagulable state (HCC-CMS) 04/23/2021 PVT 2020 witih acquired deficiencies of anticoagulant proteins due to cirrhosis; bleeding on low doses anticoagulation. Extension to SVT when anticoagulation held post GI bleeding, now on lovenox 60/d. -04/23/21: Nonocclusive portal vein thrombosis (abd pain), chronic and increased; Lovenox 40 mg SC daily - stopped 7-8 due to thrombocytopenia, frequent falls aind intermittent GIB. -10/08/2021: 10 da ??? Sleep apnea Noted 01/24/2023: uses O2 at HS, waiting on CPAP delivery ??? Swelling Takes diuretic, on and off throughout day; BLE; 01/11/22- ??? Thrombocytopenia (HCC) 12/10/2020 - see 11/20/2020 Dr. Veronica H&P, [...] Tobacco Use ??? Smoking status: Some Days Packs/day: 0.25 Years: 35.00 Pack years: 8.75 Types: Cigarettes ??? Smokeless tobacco: Never ??? Tobacco comments: smokes couple times a week Substance Use Topics ??? Alcohol use: No [...] Neg Hx ??? Endometrial Cancer Neg Hx No current outpatient medications on file. Allergies Allergen Reactions ??? Metoclopramide Nausea Only, Other (See Comments) and Shortness Of Breath Other reaction(s): RASH, SOB Jittery ??? Morphine Anaphylaxis ??? Sulfa (Sulfonamide Antibiotics) Anaphylaxis ??? Tylenol [Acetaminophen] Other (See Comments) Contraindication with medical hx ??? Flagyl [Metronidazole] Other (See Comments) Fatigue ??? Ambien [Zolpidem] Other (See Comments) Amnesia--in [place] [facility] let to psych admission. ??? Aspirin Other (See Comments) Contraindication with medical hx ??? Injectafer [Ferric Carboxymaltose] ??? Lyrica [Pregabalin] Anxiety Insomnia ??? Prochlorperazine ??? Reglan [Metoclopramide Hcl] Rash Objective Vitals Temp: [35.5 ??C (95.9 ??F)-37.2 ??C (99 ??F)] , Heart Rate: [66 BPM-94 BPM] , Pulse: [66-72] , Resp: [10-18] , BP: (76-120)/(44-70) , SpO2: [90 %-100 %] , O2 Flow Rate (L/min): 2 l/min Numeric Pain Level (Scale 1-10): 9 Weight: Weight : (!) 103 kg (227 lb) Body mass index is 38.96 kg/m??. Physical Exam General: resting in bed and awakens easily, cooperative, no acute distress HEENT: normocephalic, PERRL, EOMI, anicteric sclerae, moist mucous membranes Cardiac: regular rate and rhythm, normal S1 and S2, no murmurs/rubs/gallops Pulmonary: diffuse expiratory wheezing in anterior godwin, normal work of breathing on 2L NC Abdomen: soft and nondistended, no fluid wave appreciated, moderate diffuse tenderness to palpationwith voluntary guarding and no rebound, scattered ecchymosis 2/2 enoxaparin injections Extremities: warm and well-perfused, no skin changes Neurologic: alert and oriented x3, responds appropriately to questions, moves all extremities spontaneously against gravity, no gross focal deficits, no asterixis Labs I have personally reviewed Recent Labs 04/29/23 0532 WBC 2.70* RBC 3.60* HGB 11.1* HCT 32.7* MCV 91 MCH 30.8 MCHC 33.9 PLT 70* NEUTROABS 1.80* Recent Labs 04/28/23 2133 NA 136 K 3.4* CL 98 CO2 28 BUN 8* CREATININE 1.26* CALCIUM 9.1 LABALBU 4.0 Recent Labs 04/28/23 2133 PROTIME 13.8* INR 1.2* Recent Labs 04/28/23 2133 TBIL 0.8 ALKPHOS 122 AST [address] ABDOMEN PELVIS W CONTRAST Result Date: 04/29/2023 PRELIMINARY RESIDENT REPORT 1. No acute abnormality in the abdomen and pelvis. 2. Chronic nonocclusive portal circulatory thrombosis, not significantly changed. 3. Splenomegaly with chronic infarcts, similar to prior. 4. Cirrhosis. 5. Prior hysterectomy, cholecystectomy, appendectomy, and ventral hernia repair. Assessment Tara Boothe is a 62 y.o. 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 Overall impression is most consistent with Tiffany-Bhandari tear. Low concern for variceal bleed givenvolume of bleeding and recent EGD with no varices seen. She has been taking her BID PPI and sucralfate as prescribed, and denies NSAID or EtOH intake or other risk factors for a recurrent bleeding ulcer. She has had borderline low BPs responsive to fluid resuscitation, but is otherwise stable with Hgb close to baseline and no further bleeding since presentation. Plan Hematemesis Nausea/vomiting, diarrhea, poor PO intake Borderline hypotension History of UGIB 2/2 duodenal ulcer -Diagnostics/monitoring: -CT A/P on admission with no acute pathology -EGD December 2021 without varices, recommended repeat in 2 years -Follow up pending UA -CBC q8 hrs -Draw type & screen with next labs -Therapeutics: -Continue DONATION SPECIALIST pantoprazole 40 mg BID (switched to IV), sucralfate -Ondansetron 4 mg PO or IV q6 hrs PRN (QTc 458 on admission) -Pt okay for transfusion if indicated -Fluids/diet: -Regular diet as tolerated -S/p LR 2L in ED, continue at 100 mL/hr until drinking -Maintain PIV x2 -Defer GI consult, will consult for persistent/unstable bleeding Chronic splenic vein thrombus -Hold DONATION SPECIALIST enoxaparin 60 mg daily due to hematemesis; resume when bleeding has resolved -Follows with Hematology as outpatient QUIROZ cirrhosis, compensated -Volume: No ascites noted on CT A/P or clinically apparent on exam. Hold DONATION SPECIALIST furosemide, spironolactone until BP stabilizes. -Infection: Low concern for SBP given minimal to no ascites. CTX x7 days for ppx in the setting of GIB. -Bleeding: EGD 2021 without varices, see management of hematemesis above. -Encephalopathy: S/p TIPS. No evidence of encephalopathy on presentation. Continue DONATION SPECIALIST lactulose (pt takes PRN less than weekly). -Screening: HCC screening UTD. Depression/anxiety/insomnia -Continue DONATION SPECIALIST venlafaxine -Pt reports DONATION SPECIALIST trazodone has been minimally effective and she had an appt with her PCP today to discuss a possible medication change. Per outpt notes, PCP was considering changing trazodone to mirtazapine. Pt would like to try this while admitted; will d/c trazodone and start mirtazapine 7.5 mg tonight at bedtime. Other stable chronic conditions: CKD3a -Renal function at baseline on presentation, continue to trend daily Pancytopenia -Mild leukopenia and thrombocytopenia 2/2 hypersplenism, per Hematology notes -Currently at baseline, continue to trend daily Chronic hypoxic respiratory failure COPD without acute exacerbation HUEY -Currently on baseline 2L NC -Titrate supplemental O2 to maintain SpO2 88-92% -Pt does not use CPAP -Continue DONATION SPECIALIST Incruse Ellipta, Flovent, albuterol inhaler as needed Chronic pain -Continue DONATION SPECIALIST oxycodone 5 mg TID PRN (VPMS verified), diclofenac gel, gabapentin, lidocaine patch -Hold DONATION SPECIALIST chlorzoxazone (nonformulary) Hypothyroid -Continue DONATION SPECIALIST levothyroxine VTE Prophylaxis Hold DONATION SPECIALIST enoxaparin 60 mg daily due to hematemesis, resume when able SCDs Code: Full Code Discussed with pt on admission -- would not want to be sustained on a ventilator indefinitely, but okay for CPR and trial of intubation. 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 Son González is her designated decision-maker. Discharge Plan TBD pending clinical course Consults None Admission status Inpatient admission due to anticipated duration of hospitalization is two midnights or greater due to hematemesis. Patient discussed with and seen by Dr. Gresham. Gely Funk MD Family Medicine PGY-3 Secure chat (preferred) or #[id number] Cosigned by Jay Jay Gresham MD at 04/29/2023 12:01 EDT Associated attestation - Jay Jay Gresham MD - 04/29/2023 1201 EDT Attestation: I performed or was present during the brown or critical portions of the visit and participated in the management of the patient on 04/29. I agree with the findings and plan of care as documented in the resident's/fellow's note. Jay Jay Gresham MD 04/29/2023 12:01 documented in this encounter ED Notes * Adrienne Dickens MD - 04/29/2023 0618 EDT I, Jes De Leon, am scribing for Adrienne Dickens MD while he/she is personally performing the service. Jes De Leon 04/29/2023 6:18 Tara Boothe is a 62 y.o. female who presents to the ED with hematemesis. The patient states that she has been having significant nausea, vomiting and diarrhea over the last week intermittently with associated general malaise. Her nausea has been so severe that she has been struggling to tolerate any PO intake or fluids. Yesterday, the patient states that she began to notice some blood streaking in her vomit, but a few hours prior to her arrival in the ED she began having eh bright red blood in her emesis. The patient does endorse a history of GI bleeds, but she denies noticing any blood in her diarrhea. She does note that her diarrhea appeared somewhat dark. Her last episode of hematemesis was about 30 minutes prior to EMS arrival. Care and work-up prior to sign out includes: Unremarkable labs including stable hemoglobin. Unremarkable EKG. I assumed care of patient from Jayden Plasencia MD with CT A/P pending. After I assumed care the patient had: The patient had an abdomen/pelvis CT which was significant for: No acute abnormality in the abdomenand pelvis. Chronic nonocclusive portal circulatory thrombosis, not significantly changed. Splenomegaly with chronic infarcts, similar to prior. Cirrhosis. Prior hysterectomy, cholecystectomy, appendectomy, and ventral hernia repair. Patient had CT that was obtained, reviewed, and interpreted by myself along with a radiologist. Please see radiology report for further details. Patient was closely monitored overnight. Her blood pressures continued to be soft, but she is mentating appropriately. Her hematemesis sounds consistent with a Tiffany-Bhandari tear given that she only began having blood in her vomit towards the end of her illness. She has had no vomiting or diarrhea since she has been here, but given the hematemesis and the cirrhosis shown on CT, I am going to cover her with ceftriaxone. 0611: Spoke to Internal Medicine. They will be admitting the patient to their service for further evaluation and treatment. The patient has been informed and is comfortable with the plan for admission at this time. Patient was admitted to Internal Medicine under the care of Anthony Núñez MD. Final diagnoses: Hematemesis, unspecified whether nausea present This documentation is recorded by Jes De Leon acting as Scribe under the direction and presence of Adrienne Dickens MD. Adrienne Dickens MD: I personally performed the services recorded by the scribe in my presence. I confirm the scribe's documentation has been reviewed by me to accurately and completely recordmy work, treatment, procedures, and medical decision making. * Cari Townsend RN - 04/29/2023 0603 EDT Manual systolic BP at wrist 105mmHg * Katelyn Kern RN - 04/29/2023 0432 EDT 2335: Attempted 2 small sips of water with medications, pt reports instant cramping when anything hits my stomach. Will continue to PO challenge. 0150: Attempted to walk patient to bathroom to obtain urine sample. Pt difficult to arouse, able toopen her eyes and then almost immediately close them. Pt sitting on edge of the bed moaning, had grimace on face, difficulty keeping eyes open. MD Dickens aware. Made decision to used BSC. Pt unable to urinate at this time, will plan to attempt urination again. While on BSC, pt reports increased life stressors including her roommate situation where her roommates boyfriend was just arrested for the second time because he is a pedophile and now I can't see my younger grandchildren and that shewas held at [employer] one time. Pt denies SI at this time. Reports that she has a counselor outpatient who calls her daily to check on her. 0330: Pt remains hypotensive after 2L LR, MD Dickens aware. VO to start LR infusion at 100/hr. 0415: When pt is asleep, noted to be hypotensive. When stimulated, pt's BP increases to ~100 SBP. 0503: Report received from KENN Marr. * Katherin Dodson RN - 04/28/2023 2308 EDT Report given to Katelyn Irizarry RN * Katherin Dodson RN - 04/28/2023 2254 EDT Pt's SBPs are trending down - last one being 98/70. Pt also endorsing some lightheadedness and dizziness in the semi fowlers position. MD Sweet made aware. Fluids running. Pt medicated with IV zofran per orders. See MAR. * Katherin Dodson RN - 04/28/2023 2234 EDT COVID swab collected and sent to lab per orders * Dom Sweet MD - 04/28/2023 2157 EDT Emergency Department Visit Medical Decision Making 62-year-old female with history of cirrhosis, status post TIPS, chronic splenic vein thrombus, COPD, HUEY, asthma, GERD, thrombocytopenia presents the ED for hematemesis. Patient reports several days of hematemesis, blood-streaked vomit and eh blood. Patient states she has a history of the same. Exam was notable for an ill-appearing woman but normal vital signs and no obvious distress. No boutsof emesis while in the department. Differential included Tiffany-Bhandari tear, GI bleed from varices,ulcer, pneumonia, gastroenteritis, infectious cause such as COVID, flu, RSV. Infectious work-up wasbroadly negative. Labs were fairly unremarkable. Lactate was normal. Patient had normal blood pressure on arrival but this did decrease throughout her visit. She was given 1 L of IV fluids followed by second liter. At the time of signout, patient was still feeling quite ill after IV hydration, IV antinausea meds. CT scan was ordered of her abdomen to assess for intra-abdominal processes that could explain her symptoms. Patient was signed out to the oncoming provider pending a clear disposition. Relevant Data as of 04/29/23 0021 Kirsten Apr 28, 20234 EKG shows sinus rhythm at a rate of approximately [address] elevation depression. Normal QRS duration. No QT prolongation. [CW] Relevant Data User Index [CW] Dom Sweet MD An EKG was obtained and independently interpreted. Laboratory data was reviewed. Medical Decision Making Amount and/or Complexity of Data Reviewed Labs: ordered. Radiology: ordered. Risk Prescription drug management. Final diagnoses: Hematemesis, unspecified whether nausea present Disposition: No disposition on file Chief complaint: Hematemesis FINA Boothe is a 62 y.o. female with history of cirrhosis, status post TIPS, chronic splenic vein thrombus, COPD, HUEY, asthma, GERD, thrombocytopenia who presents to the ED for blood in her vomit. Patient states that she has been vomiting on and off for the last week with some diarrhea as well and general feeling of malaise. States that she can barely keep anything down. States that she is noticed blood streaking her vomit over the last 24 hours. States that there is also some eh blood in her vomit today. States that she called her primary care team and they recommended calling EMS andcome to the ER. Patient denies any fevers or chills. States that she does feel little bit chilled now she is that she is in the ER. Patient states that she has had some diarrhea as well. Does not think she had any blood in her stool. Denies any black or tarry stools. States the last time she had a episode of hematemesis was shortly before EMS picked her up. EMS relates that they have not seen hervomit since picking her up. She tells me that the vomit is usually in response to eating or drinking something. Patient tells me she has a longstanding history of GI bleeds. Looking at the chart, shehad a ulcer in the duodenum in 2020 that was monitored by GI. Last EGD in 2021 shows no evidence ofongoing bleeding, no varices History was provided by: Patient Records reviewed include: Prior endoscopy reports, prior ED visits, prior CTA from January, prior GI notes Patient's pertinent PMH, FH, SH were reviewed and edited as necessary. Nursing notes reviewed. A medical screening exam was performed. Physical Exam BP 105/60 Temp 36.7 ??C (98.1 ??F) (Oral) Resp 16 Ht 162.6 cm (64) Wt (!) 103 kg (227 lb) SpO2 90% BMI 38.96 kg/m?? Physical Exam Vitals and nursing note reviewed. Constitutional: Appearance: She is obese. She is ill-appearing and toxic-appearing. HENT: Head: Normocephalic and atraumatic. Mouth/Throat: Mouth: Mucous membranes are moist. Pharynx: Oropharynx is clear. Eyes: Extraocular Movements: Extraocular movements intact. Pupils: Pupils are equal, round, and reactive to light. Cardiovascular: Rate and Rhythm: Normal rate and regular rhythm. Pulses: Normal pulses. Heart sounds: Normal heart sounds. Pulmonary: Effort: Pulmonary effort is normal. Breath sounds: Normal breath sounds. Abdominal: Comments: Distended, tender abdomen, diffuse tenderness without guarding or rebound. Multiple surgical scars. Musculoskeletal: General: Normal range of motion. Cervical back: Normal range of motion and neck supple. Skin: General: Skin is warm and dry. Capillary Refill: Capillary refill takes less than 2 seconds. Neurological: General: No focal deficit present. Mental Status: She is alert and oriented to person, place, and time. Psychiatric: Mood and Affect: Mood normal. Behavior: Behavior normal. Procedures Procedures Cosigned by Jayden Plasencia MD at 04/29/2023 0:25 EDT Associated attestation - Jayden Plasencia MD - 04/29/2023 0025 EDT I, Jayden Plasencia MD, performed a history and exam of this patient and discussed the case with the resident. I have reviewed and edited this note, and the documentation is consistent with my findings, assessment and plan. I fully participated in the medical decision making. * Katherin Dodson RN - 04/28/20232137 EDT 12 Lead EKG Performed by Katherin Dodson RN and shown to Jayden Plasencia MD. * Katherin Dodson RN - 04/28/20232135 EDT Chief Complaint Patient presents with Hematemesis Pt arrives via EMS from home. Pt reports noting some red striking of blood in her emesis starting Tuesday and has been getting progressively worse over the last several days. Yesterday pt began to vomit all blood - pt reports bright red. Pt reports vomiting a lot of times and unable to keep anything down. Last episodes of emesis was 1 hr DONATION SPECIALIST. Pt has hx of GI bleeds - last one in August. Pt on Lovanox shots daily for 2 blood clots in a splenic vessel. +diarrhea - unknown if blood present. BP 120/65 (BP Cuff Location: Right arm, BP Patient Position: Semi fowlers) Temp 37.2 ??C (99 ??F)(Oral) Resp 17 Ht 162.6 cm (64) Wt (!) 103 kg (227 lb) SpO2 96% BMI 38.96 kg/m?? * Katherin Dodson RN - 04/28/2023 2136 EDT MD Sweet at bedside for evaluation documented in this encounter Miscellaneous Notes * Plan of Care - Sharon Marc RN - 05/03/2023 1050 EDT Nursing Discharge Note D: Patient noted with discharge orders to home A: Prescriptions provided to patient. Reviewed discharge instructions and prescriptions with Patient Belongings collected and sent home with patient. R: Patient verbalized understanding of discharge instructions and denied further questions. Problem: Daily Care Plan Goals Goal: Care Plan Documentation 05/03/2023 1050 by Sharon Marc RN Outcome: Completed 05/03/2023 1050 by Sharon Marc RN Outcome: Ongoing 05/03/2023 0643 by Sharon Marc RN Outcome: Ongoing * Plan of Care - Tere Abbasi RN - 05/03/2023 0507 EDT Problem: Safety: Goal: Will remain free from falls Outcome: Met This Shift Data: Assumed care of patient at 2300. Pt alert and oriented x3. Pt c/o difficulty sleeping. Call hines within reach. Bed is in the lowest position. Action: Hourly and safety checks completed. Response: No acute events overnight. Plan for D/C today. TERE ABBASI RN 05/03/2023 5:08 * Plan of Care - Gilda Cherry RN - 05/02/2023 0231 EDT Problem: Daily Care Plan Goals Goal: Care Plan Documentation Flowsheets (Taken 05/02/2023 0037) Area of Focus: Sleep Goal This Shift: Pt will sleep > 5 hrs this shift Data: Assumed care at 1900. Pt admitted for UGIB. Pt is A/O x 3, cont x2, independent, on RA during the day/2 L NC at night for HUEY. Pt reports a 7/10 abd/back/generalized pain- 4/10 is tolerable level per pt. Pt reported abd cramps related to lactulose and frequent loose stools. Action: Admin meds as per JAN. Prn oxycodone for pain/ Rozerem for sleep. Thermacare and ambulationfor abd cramps. Clustered care and reduced stimuli to promote rest- call hines and personal items within reach. Monitored for N/V, hematemesis. Hrly checks completed. Response: Pt reported pain was managed within a tolerable level. Pt slept @ 5 hrs intermittently in2.5 hr blocks. Plan of care endorsed to oncoming RN GILDA CHERRY RN 05/02/2023 2:31 Problem: High Fall Risk: Goal: Patient Will Remain Free from Fall-Related Injury Outcome: Ongoing Problem: High Fall Risk: Goal: Patient will Remain Free of Falls due to Dizziness/Vertigo Outcome: Ongoing Problem: High Fall Risk: Goal: Patient will Remain Free of Falls due to Altered Elimination Outcome: Ongoing * Plan of Care - Michelet Ortiz RN - 05/01/2023 5712 EDT Problem: Safety: Goal: Will remain free from falls Outcome: Met This Shift Problem: Daily Care Plan Goals Goal: Care Plan Documentation Outcome: Ongoing Flowsheets (Taken 05/01/2023 0900) Goal This Shift: Patient will achieve tolerable pain. Data: Patient A/O x3. VS stable on room air. Independent in room. Walk to bathroom. Frequent loose BM's from lactulose and ABX. Able to make needs known. Rings appropriately. Action: Assumed care at 0700. Medications administered per MAR. PRN oxycodone and zofran. Assistance as needed. Hourly checks. Safety promoted. Call hines within reach. Will continue to monitor. Response: Patient rested in bed throughout shift. 8-07/31 abdominal pain/cramping. Remained free from injuries/falls. MICHELET ORTIZ RN 05/01/2023 18:01 * Plan of Care - Kuldeep Dennison RN - 05/01/2023 0551 EDT Problem: Daily Care Plan Goals Goal: Care Plan Documentation Flowsheets (Taken 05/01/2023 0548) Area of Focus: Sleep Goal This Shift: Pt will have adequate sleep this shift Note: Data: Assumed care of pt at 1900. Pt alert and oriented x 3. Action: Given HS meds. Response: Pt currently in bed sleeping. Will continue to monitor. KULDEEP DENNISON RN 05/01/2023 5:49 * Plan of Care - Smitha Cristina RN - 04/30/2023 0656 EDT Problem: Daily Care Plan Goals Goal: Care Plan Documentation Outcome: Ongoing Problem: Safety: Goal: Will remain free from falls Outcome: Ongoing Problem: Skin Integrity: Goal: Skin integrity will improve or be maintained Outcome: Ongoing Problem: Sensory: Goal: Ability to compensate for vision loss will be supported Outcome: Ongoing Problem: High Fall Risk: Goal: Patient Will Remain Free from Fall-Related Injury Outcome: Ongoing Data: Assumed care of pt at 1900hrs, pt alert and oriented, independent walks to the bathroom, on 2L nc saturating well above 90%. Pt admitted for hemoptysis, no episodes of vomiting noted this shift. Action: Hourly safety rounds completed, pt medicated per jan. Response: P in bed, eyes closed, plan of care ongoing. SMITHA CRISTINA RN 04/30/2023 6:56 documented in this encounter Plan of Treatment Upcoming Encounters Date Type Department Care Team (Late st Contact Info) Description 01/04/2025 13:00 EST Office Visit [facility] - [address] [id number] Gagandeep Rome MD [address] [facility], [address] [place] [id number] 02/11/2025 13:30 EDT [facility]icine [facility] - [address] [phone] Dana Padilla MD [address] [place] [address], [address] [place] [phone] documented as of this encounter Procedures Procedure Name Priority Date/Time Associated Diagnosis Comments ECG REPORT - SCANNED 05/03/2023 6:17 EDT ECG REPORT - SCANNED 05/03/2023 6:17 EDT COMPLETE BLOOD COUNT Timed 05/03/2023 5:59 EDT BASIC METABOLIC PANEL (BMP) Routine 05/03/2023 5:59 EDT COMPLETE BLOOD COUNT STAT 05/02/2023 19:17 EDT COMPLETE BLOOD COUNT Timed 05/02/2023 6:31 EDT BASIC METABOLIC PANEL (BMP) Routine 05/02/2023 6:31 EDT BASIC METABOLIC PANEL (BMP) Routine 05/01/2023 5:54 EDT COMPLETE BLOOD COUNT Timed 05/01/2023 5:53 EDT COMPLETE BLOOD COUNT Timed 04/30/2023 18:11 EDT COMPLETE BLOOD COUNT Timed 04/30/2023 6:15 EDT BASIC METABOLIC PANEL (BMP) Routine 04/30/2023 6:15 EDT COMPLETE BLOOD COUNT Timed 04/29/2023 15:03 EDT TYPE AND SCREEN Routine 04/29/2023 15:03 EDT COMPLETE BLOOD COUNT AND DIFFERENTIAL STAT 04/29/2023 5:32 EDT LACTIC ACID Routine 04/29/2023 1:43 EDT COMPLETE BLOOD COUNT Routine 04/29/2023 1:43 EDT AMMONIA STAT 04/29/2023 1:[address] ABDOMEN PELVIS W CONTRAST STAT 04/29/2023 0:23 EDT LACTIC ACID Routine 04/28/2023 23:34 EDT ZZCOVID-19 TEST [facility] PCR STAT 04/28/2023 22:23 EDT COVID-19 TESTING STAT 04/28/2023 22:2 3 EDT ZZHN INFLUENZA A AND B, RSV PCR STAT 04/28/2023 22:23 EDT POCT US ED GUIDANCE PIV 04/28/2023 21:52 EDT EKG 12-LEAD STAT 04/28/2023 21:37 EDT HOLD SST STAT 04/28/2023 21:33 EDT HOLD LAVENDER TOP STAT 04/28/2023 21: 33 EDT HOLD GREEN TOP STAT 04/28/2023 21:33 EDT HOLD BLUE TOP STAT 04/28/2023 21:33 EDT PROTIME Add-On 04/28/2023 21:33 EDT COMPLETE BLOOD COUNT AND DIFFERENTIAL STAT Add-on 04/28/2023 21:33 EDT BLOOD BANK HOLD STAT 04/28/2023 21:33 EDT NT PRO BNP STAT Add-on 04/28/2023 21:33 EDT COMPREHENSIVE METABOLIC PANEL (CMP) STAT Add-on 04/28/2023 21:33 EDT documented in this encounter Results * ECG REPORT - SCANNED (05/03/2023 6:17 EDT) 05/03/2023 6:17 EDT us Scan 2 Dispatch Coordinator PROCEDURE/MINOR SURGICAL OR DERABLES Final Result * ECG REPORT - SCANNED (05/03/2023 6:17 EDT) 05/03/2023 6:17 EDT us Scan 2 Dispatch Coordinator PROCEDURE/MINOR SURGICAL OR DERABLES Final Result * (ABNORMAL) COMPLETE BLOOD COUNT (05/03/2023 5:59 EDT) WBC 3.41(L) 4.00 - 12.40 K/cmm 05/03/2023 6:51 EDT [facility] RBC 3.71(L) 3.86 - 5.04 M/cmm 05/03/2023 6:51 EDT [facility] Hemoglobin 11.3(L) 11.6 - 15.2 g/dL 05/03/2023 6:51 EDT [facility] HCT 33.5(L) 34.9 - 44.4 % 05/03/2023 6:51 [facility] MCV 90 81 - 98 fL 05/03/2023 6:51 [facility] MCH 30.5 26.7 - 33.3 pg 05/03/2023 6:51 [facility] MCHC 33.7 32.1 - 35.9 g/dL 05/03/2023 6:51 [facility] RDW-CV 14.1 <14.7 % 05/03/2023 6:51 [facility] RDW-SD 46.4 <50.4 fl 05/03/2023 6:51 [facility] PLT 65(L) 141 - 377 K/cmm 05/03/2023 6:51 [facility] MPV 11.0 9.5 - 12.7 fL 05/03/2023 6:51 [facility] Blood VENOUS BLOOD / Unknown Venipuncture / Unknown 05/03/2023 5:59 EDT 05/03/2023 6:36 EDT Gely Funk MD HEMATOLOGY & PF4 ORDERABLES Fi nal Result Performing Organization Address City/State/[facility] Co de Phone Number [facility] [address] [place] [address] * BASIC METABOLIC PANEL (BMP) (05/03/2023 5:59 EDT) Sodium 140 136 - 145 mmol/L 05/03/2023 7:19 [facility] Potassium 4.2 3.5 - 5.0 mmol/L 05/03/2023 7:19 [facility] Chloride 104 96 - 110 mmol/L 05/03/2023 7:19 [facility] CO2 Total 28 22 - 32 mmol/L 05/03/2023 7:19 [facility] Anion Gap 8 5 - 14 mmol/L 05/03/2023 7:19 [facility] Glucose 87 70 - 100 mg/dl 05/03/2023 7:19 [facility] Calcium 8.6 8.5 - 10.5 mg/dL 05/03/2023 7:19 [facility] BUN 15 10 - 26 mg/dL 05/03/2023 7:19 [facility] Creatinine 0.94 0.52 - 1.04 mg/dL 05/03/2023 7:19 [facility] eGFR 69 >60 mL/min/1.73 m2 05/03/2023 7:19 [facility] Blood VENOUS BLOOD / Unknown Venipuncture / Unknown 05/03/2023 5:59 EDT 05/03/2023 6:51 EDT us Gely Funk MD CHEMISTRY & BLOOD GAS ORDERABL ES Final Result [facility] [address] [place] [address] * (ABNORMAL) COMPLETE BLOOD COUNT (05/02/2023 19:17 EDT) WBC 4.82 4.00 - 12.40 K/cmm 05/02/2023 19:40 [facility] RBC 3.85(L) 3.86 - 5.04 M/cmm 05/02/2023 19:40 [facility] Hemoglobin 11.8 11.6 - 15.2 g/dL 05/02/2023 19:40 [facility] HCT 34.9 34.9 - 44.4 % 05/02/2023 19:40 [facility] MCV 91 81 - 98 fL 05/02/2023 19:40 [facility] MCH 30.6 26.7 - 33.3 pg 05/02/2023 19:40 [facility] MCHC 33.8 32.1 - 35.9 g/dL 05/02/2023 19:40 [facility] RDW-CV 14.2 <14.7 % 05/02/2023 19:40 [facility] RDW-SD 46.7 <50.4 fl 05/02/2023 19:40 [facility] PLT 72(L) 141 - 377 K/cmm 05/02/2023 19:40 [facility] MPV 10.3 9.5 - 12.7 fL 05/02/2023 19:40 [facility] Blood VENOUS BLOOD / Unknown Venipuncture / Unknown 05/02/2023 19:17 EDT 05/02/2023 19:27 EDT us Cynthia Chen MD HEMATOLOGY & PF4 ORDERABLE S Final Result [facility] [address] [place] [address] * (ABNORMAL) COMPLETE BLOOD COUNT (05/02/2023 6:31 EDT) WBC 3.36(L) 4.00 - 12.40 K/cmm 05/02/2023 7:19 [facility] RBC 3.88 3.86 - 5.04 M/cmm 05/02/2023 7:19 [facility] Hemoglobin 12.0 11.6 - 15.2 g/dL 05/02/2023 7:19 [facility] HCT 35.0 34.9 - 44.4 % 05/02/2023 7:19 [facility] MCV 90 81 - 98 fL 05/02/2023 7:19 [facility] MCH 30.9 26.7 - 33.3 pg 05/02/2023 7:19 [facility] MCHC 34.3 32.1 - 35.9 g/dL 05/02/2023 7:19 [facility] RDW-CV 14.1 <14.7 % 05/02/2023 7:19 [facility] RDW-SD 46.3 <50.4 fl 05/02/2023 7:19 [facility] PLT 61(L) 141 - 377 K/cmm 05/02/2023 7:19 EDT [facility] MPV 11.1 9.5 - 12.7 fL 05/02/2023 7:19 [facility] Blood VENOUS BLOOD / Unknown Venipuncture / Unknown 05/02/2023 6:31 EDT 05/02/2023 7:10 EDT us Gely Funk MD HEMATOLOGY & PF4 ORDERABLES Fi nal Result [facility] [address] [place] [address] * BASIC METABOLIC PANEL (BMP) (05/02/2023 6:31 EDT) Sodium 137 136 - 145 mmol/L 05/02/2023 7:43 [facility] Potassium 4.5 3.5 - 5.0 mmol/L 05/02/2023 7:43 [facility] Chloride 105 96 - 110 mmol/L 05/02/2023 7:43 [facility] CO2 Total 26 22 - 32 mmol/L 05/02/2023 7:43 [facility] Anion Gap 6 5 - 14 mmol/L 05/02/2023 7:43 [facility] Glucose 91 70 - 100 mg/dl 05/02/2023 7:43 [facility] Calcium 8.8 8.5 - 10.5 mg/dL 05/02/2023 7:43 [facility] BUN 14 10 - 26 mg/dL 05/02/2023 7:43 [facility] Creatinine 0.88 0.52 - 1.04 mg/dL 05/02/2023 7:43 [facility] eGFR 74 >60 mL/min/1.73 m2 05/02/2023 7:43 [facility] Blood VENOUS BLOOD / Unknown Venipuncture / Unknown 05/02/2023 6:31 EDT 05/02/2023 7:16 EDT us Gely Funk MD CHEMISTRY & BLOOD GAS ORDERABL ES Final Result Performing Organization Address City/[facility]/ZIP Co de Phone Number [facility] [address] [place] [address] * (ABNORMAL) BASIC METABOLIC PANEL (BMP) (05/01/2023 5:54 EDT) Sodium 138 136 - 145 mmol/L 05/01/2023 6:56 EDT [facility] Potassium 4.0 3.5 - 5.0 mmol/L 05/01/2023 6:56 EDT [facility] Chloride 102 96 - 110 mmol/L 05/01/2023 6:56 EDT [facility] CO2 Total 26 22 - 32 mmol/L 05/01/2023 6:56 T [facility] Anion Gap 10 5 - 14 mmol/L 05/01/2023 6:56 [facility] Glucose 106(H) 70 - 100 mg/dl 05/01/2023 6:56 EDT [facility] Calcium 8.8 8.5 - 10.5 mg/dL 05/01/2023 6:56 [facility] BUN 12 10 - 26 mg/dL 05/01/2023 6:56 [facility] Creatinine 0.95 0.52 - 1.04 mg/dL 05/01/2023 6:56 [facility] eGFR 68 >60 mL/min/1.73 m2 05/01/2023 6:56 T [facility] Blood VENOUS BLOOD / Unknown Venipuncture / Unknown 05/01/2023 5:54 EDT 05/01/2023 6:21 EDT us Gely Funk MD CHEMISTRY & BLOOD GAS ORDERABL ES Final Result Performing Organization Address City/[facility]/ZIP Co de Phone Number [facility] [address] [place] [address] * (ABNORMAL) COMPLETE BLOOD COUNT (05/01/2023 5:53 EDT) WBC 3.77(L) 4.00 - 12.40 K/cmm 05/01/2023 6:06 [facility] RBC 3.85(L) 3.86 - 5.04 M/cmm 05/01/2023 6:06 [facility] Hemoglobin 11.8 11.6 - 15.2 g/dL 05/01/2023 6:06 [facility] HCT 34.9 34.9 - 44.4 % 05/01/2023 6:06 [facility] MCV 91 81 - 98 fL 05/01/2023 6:06 [facility] MCH 30.6 26.7 - 33.3 pg 05/01/2023 6:06 [facility] MCHC 33.8 32.1 - 35.9 g/dL 05/01/2023 6:06 [facility] RDW-CV 14.1 <14.7 % 05/01/2023 6:06 [facility] RDW-SD 46.3 <50.4 fl 05/01/2023 6:06 [facility] PLT 63(L) 141 - 377 K/cmm 05/01/2023 6:06 [facility] MPV 10.1 9.5 - 12.7 fL 05/01/2023 6:06 [facility] Blood VENOUS BLOOD / Unknown Venipuncture / Unknown 05/01/2023 5:53 EDT 05/01/2023 5:58 EDT us Sabina Welch MD HEMATOLOGY & PF4 ORDERABLES Pricila l Result [facility] [address] [place] [address] * (ABNORMAL) COMPLETE BLOOD COUNT (04/30/2023 18:11 EDT) WBC 3.94(L) 4.00 - 12.40 K/cmm 04/30/2023 18:28 T [facility] RBC 4.02 3.86 - 5.04 M/cmm 04/30/2023 18:28 EDT [facility] Hemoglobin 12.4 11.6 - 15.2 g/dL 04/30/2023 18:28 EDT [facility] HCT 36.6 34.9 - 44.4 % 04/30/2023 18:28 [facility] MCV 91 81 - 98 fL 04/30/2023 18:28 [facility] MCH 30.8 26.7 - 33.3 pg 04/30/2023 18:28 [facility] MCHC 33.9 32.1 - 35.9 g/dL 04/30/2023 18:28 [facility] RDW-CV 14.1 <14.7 % 04/30/2023 18:28 [facility] RDW-SD 47.3 <50.4 fl 04/30/2023 18:28 [facility] PLT 77(L) 141 - 377 K/cmm 04/30/2023 18:28 [facility] MPV 10.4 9.5 - 12.7 fL 04/30/2023 18:28 [facility] Blood VENOUS BLOOD / Unknown Venipuncture / Unknown 04/30/2023 18:11 EDT 04/30/2023 18:20 EDT us Sabina Welch MD HEMATOLOGY & PF4 ORDERABLES Pricila suri Result [facility] [address] [place] [id number] * (ABNORMAL) COMPLETE BLOOD COUNT (04/30/2023 6:15 EDT) WBC 2.83(L) 4.00 - 12.40 K/cmm 04/30/2023 6:42 T [facility] RBC 3.62(L) 3.86 - 5.04 M/cmm 04/30/2023 6:42 EDT [facility] Hemoglobin 11.0(L) 11.6 - 15.2 g/dL 04/30/2023 6:42 EDT [facility] HCT 32.8(L) 34.9 - 44.4 % 04/30/2023 6:42 EDT [facility] MCV 91 81 - 98 fL 04/30/2023 6:42 EDT [facility] MCH 30.4 26.7 - 33.3 pg 04/30/2023 6:42 EDT [facility] MCHC 33.5 32.1 - 35.9 g/dL 04/30/2023 6:42 EDT [facility] RDW-CV 14.2 <14.7 % 04/30/2023 6:42 T [facility] RDW-SD 46.9 <50.4 fl 04/30/2023 6:42 EDT [facility] PLT 64(L) 141 - 377 K/cmm 04/30/2023 6:42 T [facility] MPV 10.2 9.5 - 12.7 fL 04/30/2023 6:42 T [facility] Blood VENOUS BLOOD / Unknown Venipuncture / Unknown 04/30/2023 6:15 EDT 04/30/2023 6:29 EDT us Sabina Welch MD HEMATOLOGY & PF4 ORDERABLES Pricila l Result [facility] [address] [place] [address] * (ABNORMAL) BASIC METABOLIC PANEL (BMP) (04/30/2023 6:15 EDT) Sodium 136 136 - 145 mmol/L 04/30/2023 7:10 EDT [facility] Potassium 3.6 3.5 - 5.0 mmol/L 04/30/2023 7:10 T [facility] Chloride 100 96 - 110 mmol/L 04/30/2023 7:10 EDT [facility] CO2 Total 27 22 - 32 mmol/L 04/30/2023 7:10 T [facility] Anion Gap 9 5 - 14 mmol/L 04/30/2023 7:10 [facility] Glucose 128(H) 70 - 100 mg/dl 04/30/2023 7:10 [facility] Calcium 8.4(L) 8.5 - 10.5 mg/dL 04/30/2023 7:10 [facility] BUN 9(L) 10 - 26 mg/dL 04/30/2023 7:10 [facility] Creatinine 1.01 0.52 - 1.04 mg/dL 04/30/2023 7:10 [facility] eGFR 63 >60 mL/min/1.73 m2 04/30/2023 7:10 [facility] Blood VENOUS BLOOD / Unknown Venipuncture / Unknown 04/30/2023 6:15 EDT 04/30/2023 6:35 EDT Gely Funk MD CHEMISTRY & BLOOD GAS ORDERABL ES Final Result [facility] [address] [place] [address] * (ABNORMAL) COMPLETE BLOOD COUNT (04/29/2023 15:03 EDT) WBC 2.55(L) 4.00 - 12.40 K/cmm 04/29/2023 15:37 [facility] RBC 3.72(L) 3.86 - 5.04 M/cmm 04/29/2023 15:37 [facility] Hemoglobin 11.3(L) 11.6 - 15.2 g/dL 04/29/2023 15:37 [facility] HCT 34.0(L) 34.9 - 44.4 % 04/29/2023 15:37 [facility] MCV 91 81 - 98 fL 04/29/2023 15:37 [facility] MCH 30.4 26.7 - 33.3 pg 04/29/2023 15:37 [facility] MCHC 33.2 32.1 - 35.9 g/dL 04/29/2023 15:37 EDT [facility] RDW-CV 14.3 <14.7 % 04/29/2023 15:37 EDT [facility] RDW-SD 47.6 <50.4 fl 04/29/2023 15:37 EDT [facility] PLT 73(L) 141 - 377 K/cmm 04/29/2023 15:37 EDT [facility] MPV 10.5 9.5 - 12.7 fL 04/29/2023 15:37 EDT [facility] Blood VENOUS BLOOD / Unknown Venipuncture / Unknown 04/29/2023 15:03 EDT 04/29/2023 15:18 EDT us Gely Funk MD HEMATOLOGY & PF4 ORDERABLES Fi nal Result Performing Organization Address City/[facility]/ZIP Co de Phone Number [facility] [address] [place] [address] * TYPE AND SCREEN (04/29/2023 15:03 EDT) ABO O 04/29/2023 16:51 EDT [facility] Rh Factor Positive 04/29/2023 16:51 EDT [facility] Antibody Screen Negative 04/29/2023 16:51 EDT [facility] Specimen Expires: 05/02/2023 @ 23:59 04/29/2023 16:51 EDT [facility] Blood VENOUS BLOOD / Unknown Venipuncture / Unknown 04/29/2023 15:03 EDT 04/29/2023 15:12 EDT us Gely Fnuk MD BLOOD BANK TESTS Edited Result - Final Performing Organization Address City/[facility]/ZIP Co de Phone Number [facility] [address] [place] [address] * (ABNORMAL) COMPLETE BLOOD COUNT AND DIFFERENTIAL (04/29/2023 5:32 EDT) WBC 2.70(L) 4.00 - 12.40 K/cmm 04/29/2023 5:48 [facility] RBC 3.60(L) 3.86 - 5.04 M/cmm 04/29/2023 5:48 [facility] Hemoglobin 11.1(L) 11.6 - 15.2 g/dL 04/29/2023 5:48 [facility] HCT 32.7(L) 34.9 - 44.4 % 04/29/2023 5:48 [facility] MCV 91 81 - 98 fL 04/29/2023 5:48 [facility] MCH 30.8 26.7 - 33.3 pg 04/29/2023 5:48 [facility] MCHC 33.9 32.1 - 35.9 g/dL 04/29/2023 5:48 [facility] RDW-CV 14.3 <14.7 % 04/29/2023 5:48 [facility] RDW-SD 47.2 <50.4 fl 04/29/2023 5:48 [facility] PLT 70(L) 141 - 377 K/cmm 04/29/2023 5:48 [facility] MPV 10.1 9.5 - 12.7 fL 04/29/2023 5:48 [facility] % Neutrophils 66.6 % 04/29/2023 5:48 [facility] % Lymphocytes 18.5 % 04/29/2023 5:48 [facility] % Monocytes 11.9 % 04/29/2023 5:48 [facility] % Eosinophils 1.9 % 04/29/2023 5:48 [facility] % Basophils 1.1 % 04/29/2023 5:48 [facility] % Immature Grans 0.0 % 04/29/20 5:48 [facility] Absolute Neutrophils 1.80(L) 2.20 - 8.85 K/cmm 04/29/2023 5:48 [facility] Absolute Lymphocytes 0.50(L) 1.09 - 3.30 K/cmm 04/29/2023 5:48 EDT [facility] Absolute Monocytes 0.32 0.10 - 0.80 K/cmm 04/29/2023 5:48 EDT [facility] Absolute Eosinophils 0.05 0.03 - 0.61 K/cmm 04/29/2023 5:48 EDT [facility] ABS Basophils 0.03 0.01 - 0.11 K/cmm 04/29/2023 5:48 EDT [facility] Absolute Immature Grans 0.00 0.00 - 0.06 K/cmm 04/29/2023 5:48 EDT [facility] Type of Differential: Auto 04/29/2023 5:48 EDT [facility] Blood VENOUS BLOOD / Unknown Venipuncture / Unknown 04/29/2023 5:32 EDT 04/29/2023 5:35 EDT us Adrienne Dikcens MD PACKAGES & DNA PROBE OR DERABLES Final Result [facility] [address] [place] [address] * AMMONIA (04/29/2023 1:43 EDT) Ammonia 23 <34 umol/L 04/29/2023 2:04 EDT [facility] Blood VENOUS BLOOD / Unknown Venipuncture / Unknown 04/29/2023 1:43 EDT 04/29/2023 1:53 EDT us Adrienne Dickens MD CHEMISTRY & BLOOD GAS O RDERABLES Final Result Performing Organization Address City/[facility]/ZIP Co de Phone Number [facility] [address] [place] [address] * (ABNORMAL) COMPLETE BLOOD COUNT (04/29/2023 1:43 EDT) WBC 2.92(L) 4.00 - 12.40 K/cmm 04/29/2023 1:59 EDT [facility] RBC 3.76(L) 3.86 - 5.04 M/cmm 04/29/2023 1:59 EDT [facility] Hemoglobin 11.6 11.6 - 15.2 g/dL 04/29/2023 1:59 EDT [facility] HCT 33.9(L) 34.9 - 44.4 % 04/29/2023 1:59 EDT [facility] MCV 90 81 - 98 fL 04/29/2023 1:59 EDT [facility] MCH 30.9 26.7 - 33.3 pg 04/29/2023 1:59 EDT [facility] MCHC 34.2 32.1 - 35.9 g/dL 04/29/2023 1:59 EDT [facility] RDW-CV 14.2 <14.7 % 04/29/2023 1:59 EDT [facility] RDW-SD 47.1 <50.4 fl 04/29/2023 1:59 EDT [facility] PLT 81(L) 141 - 377 K/cmm 04/29/2023 1:59 [facility] MPV 10.5 9.5 - 12.7 fL 04/29/2023 1:59 T [facility] Blood VENOUS BLOOD / Unknown Venipuncture / Unknown 04/29/2023 1:43 EDT 04/29/2023 1:47 EDT us Jayden Plasencia MD HEMATOLOGY & PF4 ORDERA BLES Final Result [facility] [address] [place] [address] * LACTIC ACID (04/29/2023 1:43 EDT) Lactic Acid 1.0 <=2.0 mmol/L 04/29/2023 1:58 EDT [facility] Blood VENOUS BLOOD / Unknown Venipuncture / Unknown 04/29/2023 1:43 EDT 04/29/2023 1:47 EDT us Jayden Plasencia MD CHEMISTRY & BLOOD GAS O RDERABLES Final Result [facility] [address] [place] [address] * CT ABDOMEN PELVIS W CONTRAST (04/29/2023 0:23 EDT) Anatomical Region Laterality Modality Body, Abdomen, Pelvis, Abdomen and Pelvis Computed Tomography 04/29/2023 11:5 9 EDT Impressions 04/29/2023 11:59 EDT 1. ??No acute abnormality in the abdomen and pelvis. 2. ??Chronic nonocclusive portal/splenic thrombosis, not significantly changed. 3. ??Splenomegaly with chronic infarcts, not significantly changed. 4. ??Cirrhosis, with stable intrahepatic portosystemic shunt right lobe, no mass.. 5. ??Mild diverticulosis 6. ??Prior hysterectomy, cholecystectomy, appendectomy, and ventral hernia repair. I have personally reviewed the images and the above interpretation and agree with the findings. Narrative 04/29/2023 11:[address] ABDOMEN PELVIS W CONTRAST ??04/29/2023 12:05 AM Signs and Symptoms/Comments: ?? abdominal pain, distension, hypotension; abdominal pain, distension, hypotension Technique: CT of the abdomen and pelvis was performed following the administration intravenous contrast. Comparison: Abdomen/Pelvis CT 03/13/2023, 02/14/2023. Findings: Lower chest: Cardiac attenuation in the lung bases which may reflect small airways disease. Atelectasis in the lingula. Hepatobiliary: Nodular contour of the hepatic capsule. Intrahepatic portosystemic shunt at the right hepatic dome, similar to prior. No concerning hepatic lesions. Prior cholecystectomy. Stable biliary tree caliber, mild dilatation. Spleen, pancreas, adrenal glands: Splenomegaly with chronic splenic infarcts status post coil embolization, not significantly changed. No new infarct noted. No pancreatic ductal dilatation or peripancreatic fat stranding. Unchanged nodular thickening of the left adrenal gland. Normal right adrenal gland. Kidneys, ureters, bladder: Symmetric enhancement of the kidneys. No hydroureteronephrosis or urinary tract calculus. No significant urinary bladder findings. Uterus, ovaries: Prior hysterectomy. No adnexal masses. Bowel: No bowel obstruction or acute inflammation. Sigmoid diverticulosis without associated inflammatory changes. Prior appendectomy. Peritoneal cavity: No intraperitoneal free fluid or air. Lymphovascular: No enlarged lymph nodes. Atherosclerotic calcifications of the abdominal aorta and its branch vessels without aneurysmal dilatation. Arterial vasculature appears patent. Redemonstrated chronic thrombus within the expanded portal and splenic veins, not significant changed. IMV and SMV remain patent. Abdominal wall: No bowel-containing hernias. Redemonstrated multiple soft tissue nodules within the anterior subcutaneous abdominal wall, likely a sequela of subcutaneous injection. Prior right ventral hernia repair noted, with mesh, axial #139. Musculoskeletal: No concerning osseous lesions. Degenerative changes in the spine. 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 Procedure Note Scottie Xavier MD - 04/29/2023 CT ABDOMEN PELVIS W CONTRAST 04/29/2023 12:05 AM Signs and Symptoms/Comments: abdominal pain, distension, hypotension; abdominal pain, distension,hypotension Technique: CT of the abdomen and pelvis was performed following the administrationintravenous contrast. Comparison: Abdomen/Pelvis CT 03/13/2023, 02/14/2023. Findings: Lower chest: Cardiac attenuation in the lung bases which may reflect smallairways disease. Atelectasis in the lingula. Hepatobiliary: Nodular contour of the hepatic capsule. Intrahepaticportosystemic shunt at the right hepatic dome, similar to prior. Noconcerning hepatic lesions. Prior cholecystectomy. Stable biliary treecaliber, mild dilatation. Spleen, pancreas, adrenal glands: Splenomegaly with chronic splenicinfarcts status post coil embolization, not significantly changed. No newinfarct noted. No pancreatic ductal dilatation or peripancreatic fatstranding. Unchanged nodular thickening of the left adrenal gland. Normalright adrenal gland. Kidneys, ureters, bladder: Symmetric enhancement of the kidneys. Nohydroureteronephrosis or urinary tract calculus. No significant urinarybladder findings. Uterus, ovaries: Prior hysterectomy. No adnexal masses. Bowel: No bowel obstruction or acute inflammation. Sigmoid diverticulosiswithout associated inflammatory changes. Prior appendectomy. Peritoneal cavity: No intraperitoneal free fluid or air. Lymphovascular: No enlarged lymph nodes. Atherosclerotic calcifications ofthe abdominal aorta and its branch vessels without aneurysmal dilatation.Arterial vasculature appears patent. Redemonstrated chronic thrombus within the expanded portal and splenicveins, not significant changed. IMV and SMV remain patent. Abdominal wall: No bowel-containing hernias. Redemonstrated multiple softtissue nodules within the anterior subcutaneous abdominal wall, likely asequela of subcutaneous injection. Prior right ventral hernia repairnoted, with mesh, axial #139. Musculoskeletal: No concerning osseous lesions. Degenerative changes inthe spine. 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 IMPRESSION 1. No acute abnormality in the abdomen and pelvis. 2. Chronic nonocclusive portal/splenic thrombosis, not significantlychanged. 3. Splenomegaly with chronic infarcts, not significantly changed. 4. Cirrhosis, with stable intrahepatic portosystemic shunt right lobe, nom[place].. 5. Mild diverticulosis 6. Prior hysterectomy, cholecystectomy, appendectomy, and ventral herniarepair. I have personally reviewed the images and the above interpretation andagree with the findings. Dom Sweet MD IMG CT ORDERABLES Final R esult * LACTIC ACID (04/28/2023 23:34 EDT) Lactic Acid 1.5 <=2.0 mmol/L 04/28/2023 23:52 EDT [facility] Blood VENOUS BLOOD / Unknown Venipuncture / Unknown 04/28/2023 23:34 EDT 04/28/2023 23:38 EDT Dom Sweet MD CHEMISTRY & BLOOD GAS ORD ERABLES Final Result Performing Organization Address City/[facility]/ZIP Co de Phone Number [facility] [address] [place] [id number] * COVID-19 TEST [facility] PCR (04/28/2023 22:23 EDT) Swab ENTIRE NASOPHARYNX / Unknown Swab / Unknown 04/28/2023 22:23 EDT 04/28/2023 22:32 EDT us Dom Sweet MD MICROBIOLOGY - GENERAL OR DERABLES Final Result [facility] [address] [place] [address] * COVID-19 TESTING (04/28/2023 22:23 EDT) COVID-19 rt-PCR Result Negative Negative 04/29/2023 0:02 EDT [facility] Comment: This test has [...] history, and epidemiological information. Performed on the Spinal Modulation GeneXpert Instrument Performing Lab GeneXpert [facility] 04/29/2023 0:02 EDT [facility] Swab ENTIRE NASOPHARYNX / Unknown Swab / Unknown 04/28/2023 22:23 EDT 04/28/2023 22:32 EDT us Dom Sweet MD MICROBIOLOGY - GENERAL OR DERABLES Final Result [facility] [address] [place] [address] * INFLUENZA A AND B,RSV PCR (04/28/2023 22:23 EDT) FLU A RNA Result (FLARES) Negative Negative 04/29/2023 0:01 EDT [facility] FLU B RNA Result (FLBRES) Negative Negative 04/29/2023 0:01 EDT [facility] RSV RNA Result (RSVRES) Negative Negative 04/29/2023 0:01 EDT [facility] Swab ENTIRE NASOPHARYNX / Unknown Swab / Unknown 04/28/2023 22:23 EDT 04/28/2023 22:32 EDT us oDm Sweet MD MICROBIOLOGY - GENERAL OR DERABLES Final Result [facility] [address] [place] [address] * POCT US ED GUIDANCE PIV (04/28/2023 21:52 EDT) Anatomical Region Laterality Modality Other 04/28/2023 21:5 2 EDT Narrative 04/29/2023 10:05 EDT Study Date and Time: 2023-04-28 21:52 Study Author: Lazaro Hdz ED Procedural Guidance - PIV: Indications: ?Indications for this focused Ultrasound:: Evaluation for a potential access site and selected vessel patency, Failed or difficult IV access ?Other Indications:: N/A Location: ?Laterality:: Left ?Site of peripheral line:: Basilic vein ?Other [...] flush in lumen) ?Comments: N/A Signed by Lazaro Hdz on 2023-04-28 22:40 Physician Attestation: ?I reviewed and independently interpreted these images. ??I was present for the brown and critical portions of the ultrasound imaging and agree with or have edited the findings as documented. Final Signature by Jayden Plasencia on 2023-04-29 10:05 Procedure Note Jayden Plasencia MD - 05/03/2023 Study Date and Time: 2023-04-28 21:52 Study Author: Lazaro Spodick ED Procedural Guidance - PIV: Indications: Indications for this focused Ultrasound:: Evaluation for a potentialaccess site and selected vessel patency, Failed or difficult IV access Other Indications:: N/A Location: Laterality:: Left Site of peripheral line:: Basilic vein Other site:: N/A Complications: Procedure Complications:: None Other Complications:: N/A Interpretation: Exam interpretation:: Successful US-guided peripheral line insertion Other interpretation:: N/A Confirmatory Study: What confirmatory study was performed during patient ED evaluation?:POCUS visualization of catheter in lume, IV patency confirmed by flushingwithout resistance or tissue infiltration, POCUS visualization of agitatedsaline flush in lumen) Comments: N/A Signed by Lazaro Hdz on 2023-04-28 22:40 Physician Attestation: I reviewed and independently interpreted these images. I was presentfor the brown and critical portions of the ultrasound imaging and agree withor have edited the findings as documented. Final Signature by Jayden Plasencia on 2023-04-29 10:05 us Jayden Plasencia MD IMG POCT US ORDERABLES Final Result * EKG 12-LEAD (04/28/2023 21:37 EDT) 04/28/2023 21:3 7 EDT Narrative [facility] - 05/03/2023 6:12 EDT ?[facility] ? Test Date: ?2023-04-28 Pat Name: ? PHYLISS BOOTHE ?Department: ?? ED ? Room: ? AC19 Gender: ? Female ? Quarry Manager: ?? : ?1960 ? Requested By: CLAUDIA VALDIVIA Order Number: [id number] ? Reading : ?? VICKEY HEREDIA ? Measurements Intervals ?[place] ? Rate: ? 85 ? P: ?62 WV: ? 145 ?QRS: ?60 QRSD: ? 94 ? T: ?56 QT: ? 384 ? QTc: ?458 ? Interpretive Statements SINUS RHYTHM Automated Interpretation. ??Provider Interpretation to follow. Compared to ECG 02/23/2023 04:40:33 Sinus arrhythmia no longer present I reviewed the tracing and have either agreed or edited the findings in this report. Electronically Signed On 05-03-2023 6:12:48 EDT by VICKEY HEREDIA. 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 Provider Interpretation to follow. Compared to ECG 02/23/2023 04:40:33 Sinus arrhythmia no longer present I reviewed the tracing and have either agreed or edited the findings inthis report. Electronically Signed On 05-03-2023 6:12:48 EDT by PARRIS. us Jayden Plasencia MD CARDIAC ECG ORDERABLES Final Result [facility] EKG * (ABNORMAL) PROTIME (04/28/2023 21:33 EDT) I.N.R. 1.2(H) 0.9 - 1.1 Ratio 04/29/2023 9:21 EDT [facility] Pro Time 13.8(H) 9.7 - 12.8 secs 04/29/2023 9:21 EDT [facility] Blood VENOUS BLOOD / Unknown Venipuncture / Unknown 04/28/2023 21:33 EDT 04/28/2023 21:38 EDT Narrative [facility] - 04/29/2023 9:21 EDT Moderate Intensity Coumadin INR = 2.0-3.0 Adjustments in anticoagulant therapy dose should be based on the INR and NOT on the Protime. us Gely Funk MD HEMATOLOGY & PF4 ORDERABLES Fi nal Result [facility] [address] [place] [id number] * NT PRO BNP (04/28/2023 21:33 EDT) NT-pro BNP <20 <221 pg/mL 04/28/2023 22:04 [facility] Comment: In the acute setting NT-proBNP values <300 pg/mL have a 98% NPV for excluding acute heart failure. In outpatient populations, NT-proBNP values <125 have a 99% NPV for excluding heart failure. Blood VENOUS BLOOD / Unknown Venipuncture / Unknown 04/28/2023 21:33 EDT 04/28/2023 21:38 EDT us Dom Sweet MD CHEMISTRY & BLOOD GAS ORD ERABLES Final Result [facility] [address] [place] [phone] * (ABNORMAL) COMPREHENSIVE METABOLIC PANEL (CMP) (04/28/2023 21:33 EDT) Pathologist [facility] Sodium 136 136 - 145 mmol/L 04/28/2023 21:56 [facility] Potassium 3.4(L) 3.5 - 5.0 mmol/L 04/28/2023 21:56 [facility] Chloride 98 96 - 110 mmol/L 04/28/2023 21:56 [facility] CO2 Total 28 22 - 32 mmol/L 04/28/2023 21:56 [facility] Glucose 93 70 - 100 mg/dl 04/28/2023 21:56 [facility] BUN 8(L) 10 - 26 mg/dL 04/28/2023 21:56 [facility] Creatinine 1.26(H) 0.52 - 1.04 mg/dL 04/28/2023 21:56 [facility] eGFR 48(L) >60 mL/min/1.7 3m2 04/28/2023 21:56 [facility] Total Protein 7.2 6.3 - 8.2 g/dL 04/28/2023 21:56 [facility] Albumin 4.0 3.4 - 4.9 g/dL 04/28/2023 21:56 [facility] Alkaline Phosphatase 122 38 - 126 U/L 04/28/2023 21:56 [facility] AST 30 15 - 46 U/L 04/28/2023 21:56 [facility] ALT 21 <35 U/L 04/28/2023 21:56 [facility] Bilirubin, Total 0.8 <1.4 mg/dL 04/28/20 21:56 [facility] Calcium 9.1 8.5 - 10.5 mg/dL 04/28/2023 21:56 [facility] Albumin/Globulin Ratio 1.3 1.0 - 2.5 04/28/2023 21:56 [facility] Anion Gap 10 5 - 14 mmol/L 04/28/2023 21:56 [facility] Blood VENOUS BLOOD / Unknown Venipuncture / Unknown 04/28/2023 21:33 EDT 04/28/2023 21:38 EDT us Dom Sweet MD CHEMISTRY & BLOOD GAS ORD ERABLES Final Result [facility] [address] [place] [address] * (ABNORMAL) COMPLETE BLOOD COUNT AND DIFFERENTIAL (04/28/2023 21:33 EDT) WBC 4.14 4.00 - 12.40 K/cmm 04/28/2023 21:53 [facility] RBC 4.22 3.86 - 5.04 M/cmm 04/28/2023 21:53 [facility] Hemoglobin 13.0 11.6 - 15.2 g/dL 04/28/2023 21:53 [facility] HCT 37.5 34.9 - 44.4 % 04/28/2023 21:53 [facility] MCV 89 81 - 98 fL 04/28/2023 21:53 [facility] MCH 30.8 26.7 - 33.3 pg 04/28/2023 21:53 [facility] MCHC 34.7 32.1 - 35.9 g/dL 04/28/2023 21:53 [facility] RDW-CV 14.1 <14.7 % 04/28/2023 21:53 [facility] RDW-SD 45.4 <50.4 fl 04/28/2023 21:53 [facility] PLT 86(L) 141 - 377 K/cmm 04/28/2023 21:53 [facility] MPV 10.1 9.5 - 12.7 fL 04/28/2023 21:53 [facility] % Neutrophils 74.1 % 04/28/2023 21:53 [facility] % Lymphocytes 12.6 % 04/28/2023 21:53 [facility] % Monocytes 12.1 % 04/28/2023 21:53 [facility] % Eosinophils 0.5 % 04/28/2023 21:53 [facility] % Basophils 0.5 % 04/28/2023 21:53 [facility] % Immature Grans 0.2 % 04/28/20 21:53 [facility] Absolute Neutrophils 3.07 2.20 - 8.85 K/cmm 04/28/2023 21:53 [facility] Absolute Lymphocytes 0.52(L) 1.09 - 3.30 K/cmm 04/28/2023 21:53 [facility] Absolute Monocytes 0.50 0.10 - 0.80 K/cmm 04/28/2023 21:53 [facility] Absolute Eosinophils 0.02(L) 0.03 - 0.61 K/cmm 04/28/2023 21:53 [facility] ABS Basophils 0.02 0.01 - 0.11 K/cmm 04/28/2023 21:53 [facility] Absolute Immature Grans 0.01 0.00 - 0.06 K/cmm 04/28/2023 21:53 EDT [facility] Type of Differential: Auto 04/28/2023 21:53 EDT [facility] Blood VENOUS BLOOD / Unknown Venipuncture / Unknown 04/28/2023 21:33 EDT 04/28/2023 21:38 EDT us Dom Sweet MD PACKAGES & DNA PROBE ORDDoug CARDENAS Final Result [facility] [address] [place] [address] * BLOOD BANK HOLD (04/28/2023 21:33 EDT) Hold BB Spec will exp at 23:59, 3 days from collect date 04/28/2023 21:53 EDT [facility] Blood VENOUS BLOOD / Unknown Venipuncture / Unknown 04/28/2023 21:33 EDT 04/28/2023 21:46 EDT us Jayden Plasencia MD BLOOD BANK TESTS Final Result [facility] [address] [place] [address] * HOLD SST (04/28/2023 21:33 EDT) Hold Hold 04/28/2023 22:46 EDT [facility] Blood VENOUS BLOOD / Unknown Venipuncture / Unknown 04/28/2023 21:33 EDT 04/28/2023 21:38 EDT us Jayden Plasencia MD LAB INFO SERVICE AND DE [place] PPORT & PHONE RESULT Final Result [facility] [address] [place] [address] * HOLD LAVENDER TOP (04/28/2023 21:33 EDT) Hold Hold 04/28/2023 22:46 EDT [facility] Blood VENOUS BLOOD / Unknown Venipuncture / Unknown 04/28/2023 21:33 EDT 04/28/2023 21:38 EDT Jayden Plasencia MD LAB INFO SERVICE AND [place] PPORT & PHONE RESULT Final Result [facility] [address] [place] [address] * HOLD GREEN TOP (04/28/2023 21:33 EDT) Hold Hold 04/28/2023 22:46 EDT [facility] Blood VENOUS BLOOD / Unknown Venipuncture / Unknown 04/28/2023 21:33 EDT 04/28/2023 21:38 EDT Jayden Plasencia MD LAB INFO SERVICE AND [place] PPORT & PHONE RESULT Final Result [facility] [address] [place] [address] * HOLD BLUE TOP (04/28/2023 21:33 EDT) Hold Hold 04/28/2023 22:46 EDT [facility] Blood VENOUS BLOOD / Unknown Venipuncture / Unknown 04/28/2023 21:33 EDT 04/28/2023 21:38 EDT Jayden Plasencia MD LAB INFO SERVICE AND [place] PPORT & PHONE RESULT Final Result [facility] [address] [place] [address] documented in this encounter Visit Diagnoses Diagnosis Hematemesis, unspecified whether nausea present- Primary Hematemesis, unspecified whether nausea present Chronic respiratory failure with hypoxia (HCC-CMS) Chronic respiratory failure Other cirrhosis of liver (HCC-CMS) Pancytopenia (HCC-CMS) Other pancytopenia Stage 3a chronic kidney disease (HCC-CMS) Other cirrhosis of liver (HCC-CMS) Chronic respiratory failure with hypoxia (HCC-CMS) Chronic respiratory failure Stage 3a chronic kidney disease ([facility]) Pancytopenia (HCC) Other pancytopenia documented in this encounter Admitting Diagnoses Diagnosis Hematemesis documented in this encounter Administered Medications Inactive Administered Medications - up to 3 most recent administrations Medication Order MAR Action Action Date Dose Rate Site cefpodoxime (VANTIN) tablet 200 mg 200 mg, oral, EVERY 12 HOURS, 8 doses, First dose on Tue05/02/23 at 0900, Last dose on Tue05/05/23 at 2100, Routine Given 05/03/2023 8:27 EDT 200 mg Given 05/02/2023 20:32 EDT 200 mg Given 05/02/2023 8:44 EDT 200 mg cefTRIAXone (ROCEPHIN) 1,000 mg in sodium chloride (NS MBP) 50 mL IVPB 1,000 mg, intravenous, Administer over 30 Minutes, NOW X1, 1 dose, On Tue04/29/23 at 0530, Type of Therapy: Empiric, Suspected Indication (Select all that apply): Other, Other Indication: GIB/cirrhosis, ID Consult: No, STAT New Bag 04/29/2023 5:38 EDT 1,000 mg cefTRIAXone (ROCEPHIN) 1,000 mg in sodium chloride (NS MBP) 50 mL IVPB 1,000 mg, intravenous, Administer over 30 Minutes, EVERY 24 HOURS, 7 doses, First dose (after last reorder) on Tue04/30/23 at 0600, Last dose on Tue05/06/23 at 0600, Type of Therapy: Empiric, Suspected Indication (Select all that apply): Other, Other Indication: GIB/cirrhosis, ID Consult: No, Routine Given 05/01/2023 6:14 EDT 1,000 mg Given 04/30/2023 5:32 EDT 1,000 mg enoxaparin (LOVENOX) injection 60 mg 60 mg, subcutaneous, DAILY, First dose on Tue05/02/23 at 0900, Until Discontinued, Routine Given 05/03/2023 8:27 EDT 60 mg Given 05/02/2023 8:43 EDT 60 mg fluticasone propionate (FLOVENT) 110 mcg/actuation inhaler 1 Puff 1 Puff, inhalation, 2 TIMES DAILY, First dose on Tue04/29/23 at 0915, Until Discontinued Given 05/03/2023 8:28 EDT 1 Puff Given 05/02/2023 20:33 EDT 1 Puff Given 05/02/2023 9:11 EDT 1 Puff furosemide (LASIX) tablet 40 mg 40 mg, oral, DAILY, First dose on Tue05/02/23 at 1400, Until Discontinued, Routine Given 05/03/2023 8:27 EDT 40 mg Given 05/02/2023 14:10 EDT 40 mg gabapentin (NEURONTIN) capsule 300 mg 300 mg, oral, Once (Time Specified), 1 dose, On Tue04/28/23 at 2300, STAT Given 04/28/2023 23:29 EDT 300 mg gabapentin (NEURONTIN) capsule 300 mg 300 mg, oral, 3 TIMES DAILY, First dose on Tue04/29/23 at 0915, Until Discontinued, Routine Given 05/03/2023 13:02 EDT 30 0 mg Given 05/03/2023 8:27 EDT 300 mg Given 05/02/2023 20:32 EDT 300 mg iohexoL (OMNIPAQUE 350) solution 100 mL 100 mL, intravenous, Once in imaging, 1 dose, Starting on Tue04/29/23 at 0023, Until Tue04/29/23 at 0016, Routine, Imaging Protocol Orders Given 04/29/2023 0:16 EDT 95 mL lactated ringers (LR) infusion at 100 mL/hr, intravenous, CONTINUOUS, Starting on Tue04/29/23 at 0345, Until 04/30/23 at 0951, STAT Rate Documented 04/29/2023 5:41 EDT 100 mL/hr New Bag 04/29/2023 3:39 EDT 100 mL/hr lactated ringers BOLUS 1,000 mL 1,000 mL, intravenous, NOW X1, 1 dose, On Kirsten 04/28/23 at 2145, STAT New Bag 04/28/2023 22:26 EDT 1,000 mL lactated ringers BOLUS 1,000 mL 1,000 mL, intravenous, NOW X1, 1 dose, On Tue04/29/23 at 0215, STAT New Bag 04/29/2023 2:07 EDT 1,000 mL lactulose (CHRONULAC) 20 gram/30 mL solution 15 mL 15 mL, oral, EVERY 4 HOURS PRN, Starting on Tue23 at 1130, Until Tu05/03/23 at 1524, Other, constipation, hepatic encephalopathy prevention - titrate to 2-3 soft BMs daily, Routine lactulose (CHRONULAC) 20 gram/30 mL solution 30 mL 30 mL, oral, EVERY 4 HOURS, First dose on 04/30/23 at 1145, Until Discontinued, Routine Given 05/01/2023 0:58 EDT 30 mL Given 04/30/2023 20:35 EDT 30 mL Given 04/30/2023 16:17 EDT 30 mL levothyroxine (SYNTHROID) tablet 25 mcg 25 mcg, oral, DAILY BEFORE BREAKFAST, First dose on Tue04/29/23 at 0930, Until Discontinued, Routine Given 05/03/2023 6:19 EDT 25 mcg Given 05/02/2023 6:11 EDT 25 mcg Given 05/01/2023 6:14 EDT 25 mcg lidocaine 5 % (LIDODERM) patch 1 Patch 1 Patch, transdermal, Administer over 12 Hours, DAILY, First dose on Tue04/29/23 at 0930, Until Discontinued Patch Applied 05/03/2023 8:27 EDT 1 Patch Back Patch Applied 05/02/2023 8:44 EDT 1 Patch Ba ck Patch Applied 05/01/2023 8:54 EDT 1 Patch Ba ck mirtazapine (REMERON) tablet 7.5 mg 7.5 mg, oral, AT BEDTIME, First dose on Tue04/29/23 at 2100, Until Discontinued, Routine Given 05/02/2023 20:32 EDT 7. 5 mg Given 05/01/2023 20:29 EDT 7.5 mg Given 04/30/2023 20:35 EDT 7.5 mg ondansetron (PF) (ZOFRAN) injection 4 mg 4 mg, intravenous, NOW X1, 1 dose, On Kirsten 04/28/23 at 2215, STAT Given 04/28/2023 22:52 EDT 4 mg ondansetron (PF) (ZOFRAN) injection 4 mg 4 mg, intravenous, EVERY 6 HOURS PRN, Starting on Tue04/29/23 at 1137, Until 05/02/23 at 1337, Nausea, Routine Given 05/02/2023 6:20 EDT 4 mg Given 05/01/2023 16:36 EDT 4 mg Given 05/01/2023 0:58 EDT 4 mg ondansetron (ZOFRAN) solution 4 mg 4 mg, oral, EVERY 6 HOURS PRN, Starting on Tue05/02/23 at 1338, Until Tue05/03/23 at 1524, Nausea, Routine Given 05/02/2023 20:33 EDT 4 mg Given 05/02/2023 14:27 EDT 4 mg oxyCODONE (ROXICODONE) immediate release tablet 5 mg 5 mg, oral, Once (Time Specified), 1 dose, On Kirsten 04/28/23 at 2300, STAT Given 04/28/2023 23:29 EDT 5 mg oxyCODONE (ROXICODONE) immediate release tablet 5 mg 5 mg, oral, 3 TIMES DAILY PRN, Starting on Tue04/29/23 at 0859, Until Tue05/03/23 at 1524, Pain, Routine Given 05/03/2023 13:04 EDT 5 mg Given 05/03/2023 8:33 EDT 5 mg Given 05/02/2023 20:32 EDT 5 mg pantoprazole (PROTONIX) injection 40 mg 40 mg, intravenous, 2 TIMES DAILY, First dose on Tue04/29/23 at 0915, Until Discontinued, Routine Given 05/01/2023 8:53 EDT 40 mg Given 04/30/2023 20:35 EDT 40 mg Given 04/30/2023 9:43 EDT 40 mg pantoprazole (PROTONIX) tablet 40 mg 40 mg, oral, 2 TIMES DAILY, First dose on Tue05/01/23 at 2100, Until Discontinued, Routine Given 05/03/2023 8:27 EDT 40 mg Given 05/02/2023 20:32 EDT 40 mg Given 05/02/2023 8:43 EDT 40 mg ramelteon (ROZEREM) tablet 8 mg 8 mg, oral, AT BEDTIME PRN, Starting on Tue04/29/23 at 0859, Until Tue05/03/23 at 1524, Sleep, Routine Given 05/02/2023 20:32 EDT 8 mg Given 05/01/2023 20:29 EDT 8 mg spironolactone (ALDACTONE) tablet 100 mg 100 mg, oral, DAILY, First dose on Tue05/02/23 at 1400, Until Discontinued, Routine Given 05/03/2023 8:27 EDT 100 mg Given 05/02/2023 14:10 EDT 100 mg sucralfate (CARAFATE) tablet 1 g 1 g, oral, 4 TIMES DAILY, First dose on Tue04/29/23 at 1200, Until Discontinued, Routine Given 05/03/2023 11:45 EDT 1 g Given 05/03/2023 8:27 EDT 1 g Given 05/02/2023 20:32 EDT 1 g tiotropium bromide (SPIRIVA RESPIMAT) 2.5 mcg/actuation inhalation mist 2 Puff 2 Puff (5 mcg), inhalation, DAILY, First dose on Tue04/29/23 at 0915, Until Discontinued Given 05/03/2023 8:28 EDT 2 Puf fs Given 05/02/2023 9:11 EDT 2 Puffs Given 05/01/2023 8:53 EDT 2 Puffs venlafaxine (EFFEXOR-XR) XR capsule 150 mg 150 mg, oral, DAILY, First dose on Tue04/29/23 at 0915, Until Discontinued, Routine Given 05/03/2023 8:27 EDT 150 mg Given 05/02/2023 8:44 EDT 150 mg Given 05/01/2023 8:53 EDT 150 mg documented in this encounter Discontinued Medications Medication Sig Discontinue Reason Start Date End Da te lidocaine 2 % solution Take 10 mL by mouth every 3 hours as needed for Pain. Therapy completed 10/26/2022 04/29/2023 ondansetron (ZOFRAN) 4 mg tablet TAKE 1 TABLET BY MOUTH EVERY 8 HOURS NEEDED FOR NAUSEA Reorder 03/27/2023 05/03/2023 pantoprazole (PROTONIX) 40 mg tablet Take 1 Tablet by mouth 2 times daily. Reorder 06/21/2022 05/03/2023 lidocaine 4 % patch Apply to back once daily as needed for pain. Remove after 12 hours of use. 06/25/2022 05/03/2023 ketotifen (ZADITOR) 0.025 % (0.035 %) ophthalmic solution PLACE 1 DROP IN BOTH EYES TWICE DAILY NEEDED FOR EYE IRRITATION. DAILY MAX: 2 DROPS PER EYE 10/12/2022 05/03/2023 chlorzoxazone (PARAFON FORTE) 500 mg tablet TAKE 1 TABLET BY MOUTH THREE TIMES A DAY NEEDED FOR MUSCLE SPASMS 11/09/2022 05/03/2023 polyethylene glycol (GOLYTELY;NULYTELY) 236-22.74-6.74 -5.86 gram suspension Instructions mailed once procedure scheduled. 12/13/2022 05/03/2023 traZODone (DESYREL) 100 mg tablet Take 2 Tablets by mouth at bedtime. 01/05/2023 05/03/2023 documented as of this encounter Active and Recently Administered Medications Times are shown in EDT. Scheduled Medication Order 05/01/2023 05/02/2023 05/03/2023 cefpodoxime (VANTIN) tablet 200 mg 200 mg, oral, EVERY 12 HOURS, 8 doses, First dose on Tue05/02/23 at 0900, Last dose on Tue05/05/23 at 2100, Routine 0844 (Given - Provider: Ne Chew RN)2031 (Given - Provider: Gilda Cherry RN) 08 (Given - Provider: Sharon Marc, KENN) cefTRIAXone (ROCEPHIN) 1,000 mg in sodium chloride (NS MBP) 50 mL IVPB (CANCELED) 1,000 mg, intravenous, Administer over 30 Minutes, EVERY 24 HOURS, 7 doses, First dose (after last reorder) on Tue04/30/23 at 0600, Last dose on Tue05/06/23 at 0600, Type of Therapy: Empiric, Suspected Indication (Select all that apply): Other, Other Indication: GIB/cirrhosis, ID Consult: No, Routine 0614 (Given - Provider: Kuldeep Dennison, KENN) enoxaparin (LOVENOX) injection 60 mg 60 mg, subcutaneous, DAILY, First dose on Tue05/02/23 at 0900, Until Discontinued, Routine 0843 (Given - Provider: Ne Chew RN) 08 (Given - Provider: Sharon Marc, KENN) fluticasone propionate (FLOVENT) 110 mcg/actuation inhaler 1 Puff 1 Puff, inhalation, 2 TIMES DAILY, First dose on Tue04/29/23 at 0915, Until Discontinued 0853 (Given - Provider: Michelet Ortiz RN)2132 (Given - Provider: Gilda Cherry RN) 0911 (Given - Provider: Ne Chew RN)2032 (Given - Provider: Gilda Cherry RN) 0828 (Given - Provider: Sharon Marc RN) furosemide (LASIX) tablet 40 mg 40 mg, oral, DAILY, First dose on Tue05/02/23 at 1400, Until Discontinued, Routine 1410 (Given - Provider: Ne Chew RN) 0827 (Given - Provider: Sharon Marc RN) gabapentin (NEURONTIN) capsule 300 mg 300 mg, oral, 3 TIMES DAILY, First dose on Tue04/29/23 at 0915, Until Discontinued, Routine 0853 (Given - Provider: Michelet Ortiz RN)1340 (Given - Provider: Michelet Ortiz RN)2028 (Given - Provider: Gilda Cherry RN) 0843 (Given - Provider: Ne Chew RN)1410 (Given - Provider: Ne Chew RN)2031 (Given - Provider: Gilda Cherry RN) 0827 (Given - Provider: Sharon Marc RN)1302 (Given - Provider: Sharon Marc RN) lactulose (CHRONULAC) 20 gram/30 mL solution 30 mL (CANCELED) 30 mL, oral, EVERY 4 HOURS, First dose on Tue04/30/23 at 1145, Until Discontinued, Routine 0058 (Given - Provider: Dolores Bee RN)0345 (Canceled Entry - Provider: Kuldeep Dennison RN)0853 (Not Given - Provider: Michelet Ortiz RN - Reason: Patient/family refused) levothyroxine (SYNTHROID) tablet 25 mcg 25 mcg, oral, DAILY BEFORE BREAKFAST, First dose on Tue04/29/23 at 0930, Until Discontinued, Routine 0614 (Given - Provider: Kuldeep Dennison RN) 0611 (Given - Provider: Gilda Cherry RN) 0619 (Given - Provider: Tere Abbasi RN) lidocaine 5 % (LIDODERM) patch 1 Patch 1 Patch, transdermal, Administer over 12 Hours, DAILY, First dose on Tue04/29/23 at 0930, Until Discontinued 0854 (Patch Applied - Provider: Michelet Ortiz RN)2029 (Patch Removed - Provider: Gilda Cherry RN) 0844 (Patch Applied - Provider: Ne Chew RN)2032 (Patch Removed - Provider: Gilda Cherry RN) 08 (Patch Applied - Provider: Sharon Marc RN)1324 (Due: Patch Removed - Provider: Batch Job User Admin - Comment: Time automatically adjusted from order being discontinued) mirtazapine (REMERON) tablet 7.5 mg 7.5 mg, oral, AT BEDTIME, First dose on Tue04/29/23 at 2100, Until Discontinued, Routine 2028 (Given - Provider: Gilda Cherry RN) 2031 (Given - Provider: Gilda Cherry RN) pantoprazole (PROTONIX) injection 40 mg (CANCELED) 40 mg, intravenous, 2 TIMES DAILY, First dose on Tue04/29/23 at 0915, Until Discontinued, Routine 0853 (Given - Provider: Michelet Ortiz RN) pantoprazole (PROTONIX) tablet 40 mg 40 mg, oral, 2 TIMES DAILY, First dose on Tue05/01/23 at 2100, Until Discontinued, Routine 2028 (Given - Provider: Gilda Cherry RN) 0843 (Given - Provider: Ne Chew RN)2031 (Given - Provider: Gilda Cherry RN) 08 (Given - Provider: Sharon Marc RN) spironolactone (ALDACTONE) tablet 100 mg 100 mg, oral, DAILY, First dose on Tue05/02/23 at 1400, Until Discontinued, Routine 1410 (Given - Provider: Ne Chew RN) 0827 (Given - Provider: Sharon Marc, RN) sucralfate (CARAFATE) tablet 1 g 1 g, oral, 4 TIMES DAILY, First dose on Tue04/29/23 at 1200, Until Discontinued, Routine 0853 (Given - Provider: Michelet Ortiz RN)1157 (Given - Provider: Michelet Ortiz RN)1616 (Given - Provider: Michelet Ortiz RN)2028 (Given - Provider: Gilda Cherry RN) 0843 (Given - Provider: Ne Chew RN)1203 (Given - Provider: Ne Chew RN)1711 (Given - Provider: Ne Chew RN)2031 (Given - Provider: Gilda Cherry RN) 0827 (Given - Provider: Sharon Marc, KENN)1145 (Given - Provider: Sharon Marc, RN) tiotropium bromide (SPIRIVA RESPIMAT) 2.5 mcg/actuation inhalation mist 2 Puff 2 Puff (5 mcg), inhalation, DAILY, First dose on Tue04/29/23 at 0915, Until Discontinued 0853 (Given - Provider: Michelet Ortiz RN) 0911 (Given - Provider: Ne Chew RN) 0828 (Given - Provider: Sharon Marc, KENN) venlafaxine (EFFEXOR-XR) XR capsule 150 mg 150 mg, oral, DAILY, First dose on Tue04/29/23 at 0915, Until Discontinued, Routine 0853 (Given - Provider: Michelet Ortiz RN) 0844 (Given - Provider: Ne Chew RN) 08 (Given - Provider: Sharon Marc RN) PRN Medication Order 05/01/2023 05/02/2023 05/03/2023 albuterol inhaler 180 mcg 180 mcg (2 Puff), inhalation, EVERY 4 HOURS PRN, Starting on Tue04/29/23 at 0859, Until Tue05/03/23 at 1524, Wheezing, Routine diclofenac sodium gel 2 g 2 g, topical, 2 TIMES DAILY PRN, Starting on Tue04/29/23 at 0859, Until Tue05/03/23 at 1524, Pain, Knee pain, Routine lactulose (CHRONULAC) 20 gram/30 mL solution 15 mL 15 mL, oral, EVERY 4 HOURS PRN, Starting on Tue05/01/23 at 1130, Until Tue05/03/23 at 1524, Other, constipation, hepatic encephalopathy prevention - titrate to 2-3 soft BMs daily, Routine lidocaine (PF) 10 mg/mL (1 %) injection 2 mg 2 mg, intradermal, PRN, 4 doses, Starting on Tue04/29/23 at 0859, Until Tue05/03/23 at 1524, peripheral intravenous catheter placement, Routine ondansetron (PF) (ZOFRAN) injection 4 mg (CANCELED) 4 mg, intravenous, EVERY 6 HOURS PRN, Starting on Tue04/29/23 at 1137, Until Tue05/02/23 at 1337, Nausea, Routine 0058 (Given - Provider: Dolores Bee RN)1636 (Given - Provider: Michelet Ortiz RN) 0620 (Given - Provider: Gilda Cherry, KENN) ondansetron (ZOFRAN) solution 4 mg 4 mg, oral, EVERY 6 HOURS PRN, Starting on Tue05/02/23 at 1338, Until Tue05/03/23 at 1524, Nausea, Routine 1427 (Given - Provider: Ne Chew RN)2032 (Given - Provider: Gilda Cherry RN) oxyCODONE (ROXICODONE) immediate release tablet 5 mg 5 mg, oral, 3 TIMES DAILY PRN, Starting on Tue04/29/23 at 0859, Until Tue05/03/23 at 1524, Pain, Routine 0853 (Given - Provider: Michelet Ortiz RN)163 (Given - Provider: Michelet Ortiz RN)2028 (Given - Provider: Gilda Cherry, KENN) 0620 (Given - Provider: Gilda Cherry, KENN)1410 (Given - Provider: Ne Chew RN)2031 (Given - Provider: Gilda Cherry RN) 0833 (Given - Provider: Sharon Marc, KENN)1304 (Given - Provider: Sharon Marc RN) ramelteon (ROZEREM) tablet 8 mg 8 mg, oral, AT BEDTIME PRN, Starting on Tue04/29/23 at 0859, Until Tue05/03/23 at 1524, Sleep, Routine 2028 (Given - Provider: Gilda Cherry, KENN) 2031 (Given - Provider: Gilda Cherry RN) documented in this encounter Orders Medications Ordered That Luc ht Not Have Been Administered Count Last Ordered Date First Ordered Date lactulose (CHRONULAC) 20 gra m/30 mL solution 15 mL 1 05/01/2023 polyethylene glycol 3350 (MS RALAX) packet 17 g 1 04/30/2023 senna (SENOKOT) tablet 1 Tablet 1 albuterol inhaler 180 mcg 1 04/29/2023 dexmedeTOMIDine in 0.9 % NaC L (PRECEDEX) 400 mcg/100 mL infusion 1 04/29/2023 diclofenac sodium gel 2 g 1 04/29/2023 lactated ringers (LR) infusion 1 04/29/2023 lidocaine (PF) 10 mg/mL (1 % ) injection 2 mg 1 04/29/2023 ondansetron (PF) (ZOFRAN) injection 4 mg 1 04/29/2023 ondansetron (ZOFRAN-ODT) dis integrating tablet 4 mg 2 04/29/2023 traZODone (DESYREL) tablet 200 mg 1 023 Diet Count Last Ordered Date First Orde red Date DISCHARGE DIET 1 05/03/2023 Nursing Count Last Ordered Date First Orde red Date ACTIVITY INSTRUCTIONS 1 05/03/2023 BATHING INSTRUCTIONS 1 05/03/2023 DRIVING INSTRUCTIONS 1 05/03/2023 Admission Count Last Ordered Date First Orde red Date ADMIT TO INPATIENT 1 04/29/2023 Transfer Count Last Ordered Date First Orde red Date ED BED REQUEST 1 04/29/2023 Discharge Count Last Ordered Date First Orde red Date DISCHARGE PATIENT 1 05/03/2023 Legal Count Last Ordered Date First Orde red Date MISCELLANEOUS DISCHARGE INSTRUCTIONS 1 04/21 documented in this encounter Additional Health Concerns Infection Onset Date Last Indicated Resolved Time R/O COVID-19 04/28/2023 04/28/2023 04/29/2023 0:02 EDT documented as of this encounter Care Teams Jeep Mechanic Relationship Specialty Start Date End Date Emigdio Veronica MD [address] [place] [phone] PCP - General Internal Medicine - Primary Care 05/22/20 02/21/24 Izabella Snowden LICSW 1 [facility], [facility], 3rd [place] [address] Business Information Manager 02/21/23 05/03/24 documented as of this encounter
--- OUTSIDE RECORDS SUMMARY | 2024-11-22 16:56 | XMS_ITS | Encounter Summary ---
Author Organization [facility] Address [address] [place] [address] Care Team Providers Care Audience Development Manager Name Role Phone Emigdio Veronica MD Primary Care Provider + Izabella Snowden [facility] Unavailable [phone] Reason for Visit * Reason Onset Date Comments Appointment Related 04/22/2023 Encounter Details Date Type Department Care Team (Late st Contact Info) Description 04/22/2023 Telephone [facility] Hematology & Oncology - [address] [phone] Loraine Hu PA-C [address] [facility], [address] [place] [address] Appointment Related Social History Tobacco [...] slept in a snf (including now)? 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 She has confirmed her rescheduled RS appt from 06/10 to 06/20 at 1:40pm. documented in this encounter Plan of Treatment Upcoming Encounters Date Type Department Care Team (Late st Contact Info) Description 01/04/2025 13:00 EST Office Visit [facility] Ophthalmology - [address] [phone] Gagandeep Rome MD [address] [place] [address], [facility] [address] [place] [phone] 02/11/2025 13:30 EDT Telemedicine [facility] Hematology & Oncology [address] [phone] Dana Padilla MD [address] [place] [address], [facility] [address] [place] [address] documented as of this encounter Visit Diagnoses Not on filedocumented in this encounter Care Teams Audience Development Manager Relationship Specialty Start Date End Date Emigdio Veronica MD [address] [place] [phone] PCP - General Internal Medicine - Primary Care 05/22/20 02/21/24 Izabella Snowden, DARNELL 1 [facility], [address] [place] [address] Instructional Systems Design Consultant 02/21/23 05/03/24 documented as of this encounter
--- OUTSIDE RECORDS SUMMARY | 2024-11-22 16:56 | XMS_ITS | Encounter Summary ---
Author Organization [facility] Address [address] [place] [address] Care Team Providers Care Trim Stencil Maker Name Role Phone Emigdio Veronica MD Primary Care Provider + Izabella nSowden [facility] Unavailable [phone] None, Provider Primary Care Provider Gabriel Wei Primary Care Provider Mirna Guerrero Primary Care Provider + Reason for Visit * Reason Comments Medications Refill Encounter Details Date Type Department Care Team (Late st Contact Info) Description 04/23/2023 Refill [facility] Adult Primary Care - [place] [address] [place] [address] Emigdio Veronica MD [address] [place] [phone] Medications Refill Social History Tobacco [...] slept in a custodial (including now)? 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 levothyroxine (SYNTHROID) 25 mcg tablet [Pharmacy Med Name: LEVOTHYROXINE 25 MCG TABLET] 90 Tablet 1 Sig: TAKE 1 TABLET BY MOUTH EVERY DAY [facility]/pharmacy #[id number] - [place], [address] Confirmed Pharmacy? Yes Patient out of medication? Unknown Last Refill Date: 01.22.23 Refills left? (explain exceptions requiring early refill) No Recent Visits Date Type Provider Dept 03/15/23 Office Visit Emigdio Veronica III, MD [facility] [place] Adult Prim Care 02/24/23 Office Visit Scottie Campuzano PA-C [facility] [place] Adult Prim [facility] 02/16/23 Office Visit Scottie Campuzano PA-C [facility] [place] Adult Prim Care 01/21/23 Office Visit Emigdio Veronica III, MD [facility] [place] Adult Prim Care 01/05/23 Office Visit Emigdio Veronica III, [facility] [place] Adult Prim Care 12/23/22 Office Visit Emigdio Veronica III, MD [facility] [place] Adult Prim Care 11/25/22 Office Visit Emigdio Veronica III, MD [facility] [place] Adult Prim Care 09/29/22 Office Visit Emigdio Veronica III, MD [facility] [place] Adult Prim Care 09/17/22 Office Visit Emigdio Veronica III, MD [facility] [place] Adult Prim Care 08/11/22 Office Visit Emigdio Veronica III, MD [facility] Adult Prim Care Showing recent visits within past 540 days with a meds authorizing provider and meeting all other requirements Future Appointments No visits were found meeting these conditions. Showing future appointments within next 150 days with a meds authorizing provider and meeting all other requirements Future appointment: Other last seen on 03.15.23, no f/u scheduled IRASEMA FITZGERALD LPN 04/23/2023 11:27 documented in this encounter Plan of Treatment Upcoming Encounters Date Type Department Care Team (Late st Contact Info) Description 01/04/2025 13:00 EST Office Visit [facility] Ophthalmology [address] [phone] Gagandeep Rome MD [address] [place] [address], [address] [place] [phone] 02/11/2025 13:30 EDT Telemedicine [facility] Hematology & Oncology [address] [phone] Dana Padilla MD 111 [facility], [facility], [address] [place] [phone] documented as of this encounter Visit Diagnoses Not on filedocumented in this encounter Discontinued Medications Medication Sig Discontinue Reason Start Date End Da te levothyroxine (SYNTHROID) 25 mcg tablet Take 1 Tablet by mouth daily. 10/21/2022 04/26/2023 documented as of this encounter Additional Health Concerns Infection Onset Date Last Indicated Resolved Time R/O COVID-19 04/28/2023 04/28/2023 04/29/2023 0:02 EDT R/O COVID-19 09/07/2023 09/07/2023 09/07/2023 22:1 6 EDT documented as of this encounter Care Teams Trim Stencil Maker Relationship Specialty Start Date End Date Emigdio Veronica MD [address] [place] [phone] PCP - General Internal Medicine - Primary Care 05/22/20 02/21/24 None, Provider PCP - General 02/24/24 03/18/24 Gabriel Gandara PA PCP - General 03/19/24 09/11/24 Mirna Guerrero PA [address] [place] [address] PCP - General 09/12/24 Izabella Snowden, BALLISTICS TESTER 1 [facility], 3rd [place] [phone] Online Banking Specialist 02/21/23 05/03/24 documented as of this encounter
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
--- OUTSIDE RECORDS SUMMARY | 2024-11-22 16:56 | XMS_ITS | Encounter Summary ---
Author Organization [facility] Address [address] [place] [address] Care Team Providers Care Sales Order Coordinator Name Role Phone Emigdio Veronica MD Primary Care Provider + Izabella Snowden [facility] [phone] Reason for Visit * Reason Comments Health Assistance Program Encounter Details Date Type Department Care Team (Late st Contact Info) Description 03/29/2023 Community Health Team [address], [facility] [address] [place] [address] [facility], Health Assistance Program [address] [place] [id number] Social History Tobacco Use Types Packs/Day Years [...] medical appointments or from getting medications? Yes 0404/2023 In the past 12 months, has l [...] slept in a retirement (including now)? 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 Order Builder (RC) called and spoke with patient. ?? Discussed housing options and waitlist times. ?? Patient prioritized housing that allows pets and is not directly in the city; [facility] [place] places she would like to apply to. ?? Scheduled a phone appointment to complete the [facility] housing application with patient. ?? Patient is interested in transportation options but has prioritized completing housing applications first. Plan / Action Items: ?? RC will call patient on 04/04/23 at 1:00pm to complete housing application. ?? RC will make a follow-up appointment to begin working on transportation options. Lucie Yao 03/29/23 15:06 documented in this encounter Plan of Treatment Upcoming Encounters Date Type Department Care Team (Late st Contact Info) Description 01/04/2025 13:00 EST Office Visit [facility] Ophthalmology - [address] [address] Gagandeep Rome MD [address] [place] [address], Level 5 [place] [phone] 02/11/2025 13:30 EDT Telemedicine [facility] Cancer Center Hematology & Oncology - [address] [phone] Dana Padilla MD 111 [facility], Level 2 [place] [address] documented as of this encounter Visit Diagnoses Not on filedocumented in this encounter Care Teams Sales Order Coordinator Relationship Specialty Start Date End Date Emigdio Veronica MD 2 [place] [phone] PCP - General Internal Medicine - Primary Care 05/22/20 02/21/24 Izabella Snowden, [facility] 1 [facility], 3rd [place] [phone] Bike Designer 02/21/23 05/03/24 documented as of this encounter
--- OUTSIDE RECORDS SUMMARY | 2024-11-22 16:56 | XMS_ITS | Encounter Summary ---
Author Organization [facility] Address [address] [place] [address] Care Team Providers Care Social Science Professor Name Role Phone Emigdio Veronica MD Primary Care Provider + Izabella Snowden EAP CLINICIAN Unavailable Encounter Details Date Type Department Care Team (Late st Contact Info) Description 04/25/2023 Patient Outreach [facility] Adult Primary Care - [place] [address] [place] [address] Izabella Snowden LICSW 1 [facility], 3rd [place] [address] Social History Tobacco Use Types [...] slept in a fpc (including now)? 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 new car sales manager called and left voicemailrequesting call back to reschedule. If no response from patient CM will reach out again in 7-10 days. Patient returned CM's call later in the afternoon. Patient stated that she has been having a very rough time-dealing with significant anxiety and panic attack due to her situation with housing. She reports that landlord is becoming more and more demanding and that this has been increasing her stress levels. Patient reports that she has also reached out to [facility] to schedule an urgent appointment. She has appointment tomorrow at 3pm with Scottie Campuzano. Actively listened to patient???s expression and provided validation, support, and safe space to express emotions. Patient needed to end this conversation to take another call. CM will follow up again with patient after her appointment with Scottie Campuzano. documented in this encounter Plan of Treatment Upcoming Encounters Date Type Department Care Team (Late st Contact Info) Description 01/04/2025 13:00 EST Office Visit [facility] Ophthalmology - Main [address] [address] Gagandeep Rome MD [address] [place] [address], Level 5 [place] [phone] 02/11/2025 13:30 EDT Telemedicine [facility] Cancer Center Hematology & Oncology - [address] [phone] Dana Padilla MD 111 [facility], [facility] 2 [place] [address] documented as of this encounter Visit Diagnoses Not on filedocumented in this encounter Care Teams Social Science Professor Relationship Specialty Start Date End Date Emigdio Veronica MD 2 [place] [phone] PCP - General Internal Medicine - Primary Care 05/22/20 02/21/24 Izabella Snowden, [facility] 1 [facility], 3rd [place] [phone] Vibration Analyst 02/21/23 05/03/24 documented as of this encounter
--- OUTSIDE RECORDS SUMMARY | 2024-11-22 16:56 | XMS_ITS | Encounter Summary ---
Author Organization [facility] Address [address] [place] [address] Care Team Providers Care Roof Cement And Paint Maker Name Role Phone Emigdio Veronica MD Primary Care Provider + Izabella Snowden [facility] Unavailable None, Provider Primary Care Provider Gabriel Wei Primary Care Provider Mirna Guerrero Primary Care Provider + Reason for Visit * Reason Onset Date Comments Other 04/26/2023 Encounter Details Date Type Department Care Team (Late st Contact Info) Description 04/26/2023 Telephone [facility] Adult Primary Care - [place] 2 [place] [address] Scottie Campuzano PA-C 2 [place] [address] Other Social History Tobacco Use Types Packs/Day Years [...] 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 Job End Date 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 Not on file [...] Encounter - Scottie Campuzano PA-C - 04/26/2023 3683 EDT Re: housing crisis/psychosocial stressors documented in this encounter Plan of Treatment Upcoming Encounters Date Type Department Care Team (Late st Contact Info) Description 01/04/2025 13:00 EST Office Visit [facility] Ophthalmology - [address] [address] Gagandeep Rome MD [address] [place] [address], [facility] 5 [place] [phone] 02/11/2025 13:30 EDT Telemedicine [facility] Hematology & Oncology [address] [address] Dana Padilla MD [address] [place] [address] Level [address] [place] [address] documented as of this encounter Visit Diagnoses Not on filedocumented in this encounter Additional Health Concerns Infection Onset Date Last Indicated Resolved Time R/O COVID-19 04/28/2023 04/28/2023 04/29/2023 0:02 EDT R/O COVID-19 09/07/2023 09/07/2023 09/07/2023 22:1 6 EDT documented as of this encounter Care Teams Roof Cement And Paint Maker Relationship Specialty Start Date End Date Emigdio Veronica MD 2 [place] [phone] PCP - General Internal Medicine - Primary Care 05/22/20 02/21/24 None, Provider PCP - General 02/24/24 03/18/24 Gabriel Gandara PA PCP - General 03/19/24 09/11/24 Mirna Guerrero PA [address] [place] [address] PCP - General 09/12/24 Izabella Snowden, CERTIFIED BENCH JEWELER TECHNICIAN 1 [facility], 3rd [place] [phone] Tub Wash Operator 02/21/23 05/03/24 documented as of this encounter
--- OUTSIDE RECORDS SUMMARY | 2024-11-22 16:56 | XMS_ITS | Encounter Summary ---
Author Organization [facility] Address [address] [place] [address] Care Team Providers Care Special Skills Officer Name Role Phone Emigdio Veronica MD Primary Care Provider + Izabella Snowden DESIGN ASSEMBLER Unavailable [phone] Encounter Details Date Type Department Care Team (Late st Contact Info) Description 04/29/2023 Patient Outreach [facility] Adult Primary Care - [place] 2 [place] [address] Izabella Snowden LICSW 1 [facility], 3rd [place] [address] Social History Tobacco Use Types [...] Never 02/24/2023 How often does anyone, sam megn family, insult, scream, curse or threaten to hurt you? 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 CM contacted Inpatient manager of financial planning Cynthia Givens regarding patient's admission. Cynthia reports that patient is expected to remain in the hospital another 1-2 days. Patient has been admitted to the hospital on: 04/28/23 Currently engaged with [employer] food assistance, [facility] Anticipate a challenging discharge or transition of care from the hospital No Other Information: N/A [facility] CM Contact: DARNELL Araya 04/29/2023 11:34 documented in this encounter Plan of Treatment Upcoming Encounters Date Type Department Care Team (Late st Contact Info) Description 01/04/2025 13:00 EST Office Visit [facility] Ophthalmology - [address] [address] Gagandeep Rome MD [address] [place] [address], Level 5 [place] [phone] 02/11/2025 13:30 EDT Telemedicine [facility] Cancer Center Hematology & Oncology - [facility] [address] [place], [place] [phone] Dana Padilla MD 111 [facility], Level 2 [place] [address] documented as of this encounter Visit Diagnoses Not on filedocumented in this encounter Additional Health Concerns Infection Onset Date Last Indicated Resolved Time R/O COVID-19 04/28/2023 04/28/2023 04/29/2023 0:02 EDT documented as of this encounter Care Teams Special Skills Officer Relationship Specialty Start Date End Date Emigdio Veronica MD 2 [place] [address] PCP - General Internal Medicine - Primary Care 05/22/20 02/21/24 Izabella Snowden, [facility] 1 [facility], 3rd [place] [phone] Film Archivist 02/21/23 05/03/24 documented as of this encounter
--- OUTSIDE RECORDS SUMMARY | 2024-11-22 16:56 | XMS_ITS | Encounter Summary ---
Author Organization [facility] Address [address] [place] [address] Care Team Providers Care Clinical Laboratory Director Name Role Phone Emigdio Veronica MD Primary Care Provider + Izabella Snowden INTEGRATION AIDE Unavailable [phone] Encounter Details Date Type Department Care Team (Late st Contact Info) Description 04/27/2023 Patient Outreach [facility] Adult Primary Care - [place] 2 [place] [address] Izabella Snowden LICSW 1 [facility], 3rd [place] [address] Social History Tobacco Use Types [...] 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 . Left VM and also sent a text message. PLAN: ... CM left VM and also sent patient text message-requested return call. DARNELL MCCORMICK 04/27/2023 12:05 documented in this encounter Plan of Treatment Upcoming Encounters Date Type Department Care Team (Late st Contact Info) Description 01/04/2025 13:00 EST Office Visit [facility] Ophthalmology - [address] [address] Gagandeep Rome MD [address] [place] [address], Level 5 [place] [address] 02/11/2025 13:30 EDT Telemedicine [facility] Hematology & Oncology [address] [phone] Dana Padilla MD 111 [facility], Level 2 [place] [phone] documented as of this encounter Visit Diagnoses Not on filedocumented in this encounter Additional Health Concerns Infection Onset Date Last Indicated Resolved Time R/O COVID-19 04/28/2023 04/28/2023 04/29/2023 0:02 EDT documented as of this encounter Care Teams Clinical Laboratory Director Relationship Specialty Start Date End Date Emigdio Veronica MD 2 [place] [phone] PCP - General Internal Medicine - Primary Care 05/22/20 02/21/24 Izabella Snowden, INTEGRATION AIDE 1 [facility], 3rd [place] [address] In File Operator 02/21/23 05/03/24 documented as of this encounter
--- OUTSIDE RECORDS SUMMARY | 2024-11-22 16:56 | XMS_ITS | Encounter Summary ---
Author Organization [facility] Address [address] [place] [address] Care Team Providers Care Senior Production Manager Name Role Phone Emigdio Veronica MD Primary Care Provider + Izabella Snowden [facility] [phone] Reason for Visit * Reason Comments Health Assistance Program Encounter Details Date Type Department Care Team (Late st Contact Info) Description 04/20/2023 Community Health Team [address], [facility] 106 [place] [address] [facility], Health Assistance Program [address] [place] [address] Social History Tobacco Use Types Packs/Day Years [...] slept in a half-way (including now)? 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 [employer] (RC) called patient to follow-up on transportation applications and left patient a voicemail. Plan / Action Items: ?? If RC doesn't hear back from the patient no additional attempts will be made, but RC support always remains available. Lucie Yao 04/20/23 12:03 documented in this encounter Plan of Treatment Upcoming Encounters Date Type Department Care Team (Late st Contact Info) Description 01/04/2025 13:00 EST Office Visit [facility] Ophthalmology - [address] [phone] Gagandeep Rome MD [address] [place] [address], [facility] 5 [place] [phone] 02/11/2025 13:30 EDT Telemedicine [facility] Hematology & Oncology [address] [address] Dana Padilla MD [address] [place] [address], Level 2 [place] [phone] documented as of this encounter Visit Diagnoses Not on filedocumented in this encounter Care Teams Senior Production Manager Relationship Specialty Start Date End Date Emigdio Veronica MD 2 [place] [address] PCP - General Internal Medicine - Primary Care 05/22/20 02/21/24 Izabella Snowden, [facility] 1 [facility], 3rd [place] [address] Dermatology Physician Assistant 02/21/23 05/03/24 documented as of this encounter
--- OUTSIDE RECORDS SUMMARY | 2024-11-22 16:56 | XMS_ITS | Encounter Summary ---
Author Organization [facility] Address [address] [place] [address] Care Team Providers Care Senior Cyber Intelligence Analyst Name Role Phone Emigdio Fernandez MD Primary Care Provider + Izabella Snowden [facility] [phone] Reason for Visit * Reason Onset Date Comments Anxiety 04/25/2023 Shortness of Breath 04/25/2023 Panic Attack 04/25/2023 Encounter Details Date Type Department Care Team (Late st Contact Info) Description 04/25/2023 Telephone [facility] Adult Primary Care - [place] 2 [place] [address] Emigdio Fernandez MD 2 [place] [address] Anxiety; Shortness of Breath; Panic Attack Social History Tobacco Use Types Packs/Day Years [...] 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 * Telephone Encounter - Sharon Joseph RN - 04/28/2023 1414 EDT Pt states that about 12 times a day she vomits. Even if it is a sip of water pt vomits. States that she has streaking in her vomit with blood. asks pt to explain more about how much bloodshe is vomiting states that its not a whole lot it is streaked in her vomit. No blood in stool. Pt has been taking Zofran. Pt continues to have panic attacks. States she this it is from stress Pt states a lot of cramping. Pt has a history of a GI bleed. Fatigue. Unable to sleep. recommended that pt go to the hospital pt States that she does not want to go to the hospital. Pt wants to wait until she is seen tomorrow * Telephone Encounter - Prema [place] - 04/28/2023 1410 EDT Patient is calling to report that she is not vomiting blood * Telephone Encounter - Sharon Joseph RN - 04/25/2023 1633 EDT Pt states that she is has a lot on her mind. There is so much going on her head is spinning. There are so many things that Doesn't want to see anyone or deal with any one right now. Head is so screwed up Locks herself in her room. Tried to be strong for so long. Pt does have thoughts of self harm. No plan. States that the thoughts were so bad yesterday. Pt given crisis line and recommended that if she has thoughts of self harm she can always go to the ER. Pt given an appt tomorrow with DS * Telephone Encounter - Noemi Hall - 04/25/2023 1500 EDT Reason for Call: Anxiety, Shortness of Breath, and Panic Attack Summary/Symptoms: patient is very emotional and states has been having a panic attack since yesterday. patient is hoping to get an appt with Dr fernandez but nothing was available until Tuesday. She states she is also very comfortable with [facility]. Onset and Duration: today Does the patient have a computer, laptop or smart phone with high speed & video capability? N/A If so, would they be interested in doing a video visit via Scopelechart? N/A Appointment Offered? yes Noemi Hall 04/25/2023 15:00 documented in this encounter Plan of Treatment Upcoming Encounters Date Type Department Care Team (Late st Contact Info) Description 01/04/2025 13:00 EST Office Visit [facility] Ophthalmology - [address] [address] Gagandeep Rome MD [address] [place] [address], [facility] 5 [place] [phone] 02/11/2025 13:30 EDT Telemedicine [facility] Hematology & Oncology [address] [phone] Dana Padilla MD [address] [place] [address], [facility] 2 [place] [phone] documented as of this encounter Visit Diagnoses Not on filedocumented in this encounter Additional Health Concerns Infection Onset Date Last Indicated Resolved Time R/O COVID-19 04/28/2023 04/28/2023 04/29/2023 0:02 EDT documented as of this encounter Care Teams Senior Cyber Intelligence Analyst Relationship Specialty Start Date End Date Emigdio Fernandez MD 2 [place] [phone] PCP - General Internal Medicine - Primary Care 05/22/20 02/21/24 Izabella Snowden, DARNELL 1 [facility], 3rd [place] [address] Motion Graphics Artist 02/21/23 05/03/24 documented as of this encounter
--- OUTSIDE RECORDS SUMMARY | 2024-11-22 16:56 | XMS_ITS | Encounter Summary ---
Author Organization [facility] Address [address] [place] [address] Care Team Providers Care Embroidery Machine Operator Name Role Phone Emigdio Veronica MD Primary Care Provider + Izabella Snowden [facility] Unavailable [phone] Reason for Visit * Reason Onset Date Comments Hospital Discharge Follow Up 05/04/2023 Encounter Details Date Type Department Care Team (Late st Contact Info) Description 05/04/2023 Telephone [facility] Adult Primary Care - [place] 2 [place] [address] Pam Iqbal, KENN Hospital Discharge Follow Up Social History Tobacco Use Types [...] 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 Yes- Still feeling really nauseous, but she is taking zofran, which is [facility]. She reporst feeling quite tired and drianed. Discharge instructions available? yes Medications Reviewed/prescriptions filled? Yes- Pertinent medication changes: - start cefpodoxime 200mg BID x 3 days to complete 10 days course for SBP ppx - stop trazodone 100mg at bedtime - start mirtazapine 7.5mg at bedtime - stop chlorzoxazone due to liver dysfunction (and patient finds it ineffective) - start lidocaine 5% patch (PA approved at discharge Support at home? Lives alone, but says she is able to manage on her own. Son stops in. Home health service/issues? no - - Questions about discharge instructions? no - - Follow-up visit scheduled? Yes- 05/05/23 11:30am with Dr Veronica- confirmed with Pt. Education/Plan: Pt denied having any questions. Verbalized understanding of everything discussed/med changes. No barriers. PAM IQBAL RN 05/04/2023 documented in this encounter Plan of Treatment Upcoming Encounters Date Type Department Care Team (Late st Contact Info) Description 01/04/2025 13:00 EST Office Visit [facility] Ophthalmology - [address] [phone] Gagandeep Rome MD [address] [place] [address] 5 [place] [phone] 02/11/2025 13:30 EDT Telemedicine [facility] Hematology & Oncology - [address] [phone] Dana Padilla MD [address] [place] [address], [facility] 2 [place] [phone] documented as of this encounter Visit Diagnoses Not on filedocumented in this encounter Care Teams Embroidery Machine Operator Relationship Specialty Start Date End Date Emigdio Veronica MD 2 [place] [address] PCP - General Internal Medicine - Primary Care 05/22/20 02/21/24 Izabella Snowden, [facility] 1 [facility], 3rd [place] [address] Curator Of Manuscripts 02/21/23 05/03/24 documented as of this encounter
--- OUTSIDE RECORDS SUMMARY | 2024-11-22 16:56 | XMS_ITS | Encounter Summary ---
Author Organization [facility] Address [address] [place] [address] Care Team Providers Care Transmissions Systems Operator Name Role Phone Emigdio Veronica MD Primary Care Provider + Izabella Snowden [facility] Unavailable None, Provider Primary Care Provider Gabriel Wei Primary Care Provider Mirna Guerrero Primary Care Provider + Reason for Visit * Reason Comments Medications Refill Encounter Details Date Type Department Care Team (Late st Contact Info) Description 04/14/2023 Refill [facility] Adult Primary Care - [place] [address] [place] [address] Emigdio Veronica MD [address] [place] [address] Medications Refill Social History Tobacco [...] slept in a usp (including now)? 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 gabapentin (NEURONTIN) 300 mg capsule [Pharmacy Med Name: GABAPENTIN 300 MG CAPSULE] 120 Capsule 1 Sig: TAKE 1 CAPSULE BY MOUTH TWICE A DAY Refused By: SPARKLE BEAN Reason for Refusal: Refill not appropriate [facility]/pharmacy #[id number] - [address] Confirmed Pharmacy? Yes Patient out of medication? Yes: Needs Refill Now Last Refill Date: 03/12/2023 Refills left? (explain exceptions requiring early refill) No Recent Visits Date Type Provider Dept 03/15/23 Office Visit Emigdio Veronica MD [facility] Adult Prim Care 02/24/23 Office Visit Scottie Campuzano PA-C [facility] Adult Prim Care 02/16/23 Office Visit Scottie Campuzano PA-C [facility] Adult Prim Care 01/21/23 Office Visit Emigdio Veronica MD [facility] Adult Prim Care 01/05/23 Office Visit Emigdio Veronica MD [facility] Adult Prim Care 12/23/22 Office Visit Emigdio Veronica MD [facility] Adult Prim Care 11/25/22 Office Visit Emigdio Veronica MD [facility] [place] Adult Prim Care 09/29/22 Office Visit Emigdio Veronica MD [facility] [place] Adult Prim Care 09/17/22 Office Visit Emigdio Veronica MD [facility] [place] Adult Prim Care 08/11/22 Office Visit Emigdio Veronica MD [facility] [place] Adult Prim Care Showing recent visits within past 540 days with a meds authorizing provider and meeting all other requirements Future Appointments Date Type Provider Dept 04/22/23 Appointment Emigdio Veronica MD [facility] Adult Prim Care Showing future appointments within next 150 days with a meds authorizing provider and meeting all other requirements Future appointment: Already Scheduled Prema Crane 04/15/2023 8:56 documented in this encounter Plan of Treatment Upcoming Encounters Date Type Department Care Team (Late st Contact Info) Description 01/04/2025 13:00 EST Office Visit [facility] Ophthalmology [address] [phone] Gagandeep Rome MD [address] [place] [address], [facility] [address] [place] [phone] 02/11/2025 13:30 EDT Telemedicine [facility] Hematology & Oncology [address] [phone] Dana Padilla MD [address] [place] [address], Level [address] [place] [phone] documented as of this encounter Visit Diagnoses Not on filedocumented in this encounter Additional Health Concerns Infection Onset Date Last Indicated Resolved Time R/O COVID-19 04/28/2023 04/28/2023 04/29/2023 0:02 EDT R/O COVID-19 09/07/2023 09/07/2023 09/07/2023 22:1 6 EDT documented as of this encounter Care Teams Transmissions Systems Operator Relationship Specialty Start Date End Date Emigdio Veronica MD [address] [place] [phone] PCP - General Internal Medicine - Primary Care 05/22/20 02/21/24 None, Provider PCP - General 02/24/24 03/18/24 Gabriel Gandara PA PCP - General 03/19/24 09/11/24 Mirna Guerrero PA [address] [place] [address] [phone] PCP - General 09/12/24 Izabella Snowden LICSW 1 [facility], 3rd [place] [phone] Water Supply Engineer 02/21/23 05/03/24 documented as of this encounter
--- OUTSIDE RECORDS SUMMARY | 2024-11-22 16:56 | XMS_ITS | Encounter Summary ---
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 Not [...] Soila Murphy RN documented in this encounter Plan of Treatment Upcoming Encounters Date Type Department Care Team (Late st Contact Info) Description 01/04/2025 13:[address] [facility] Ophthalmology - [address] [phone] Gagandeep Rome MD [address] [place] [address], [facility] 5 [place] [phone] 02/11/2025 13:30 EDT Telemedicine [facility] Hematology & Oncology - [address] [phone] Dana Padilla MD [address] [place] [address], [facility] 2 [place] [address] documented as of this encounter Visit Diagnoses Not on filedocumented in this encounter Additional Health Concerns Infection Onset Date Last Indicated Resolved Time R/O COVID-19 04/28/2023 04/28/2023 04/29/2023 0:02 EDT documented as of this encounter Care Teams Forest Economics Professor Relationship Specialty Start Date End Date Emigdio Veronica MD [address] [place] [address] PCP - General Internal Medicine - Primary Care 05/22/20 02/21/24 Izabella Snowden, ICU SPECIALIST 1 [facility], 3rd [place] [address] Classroom Aide 02/21/23 05/03/24 documented as of this encounter
--- OUTSIDE RECORDS SUMMARY | 2024-11-22 16:56 | XMS_ITS | Encounter Summary ---
Author Organization [facility] Address [address] [place] [address] Care Team Providers Care Tool Design Checker Name Role Phone Emigdio Veronica MD Primary Care Provider + Izabella Snowden [facility] [phone] Reason for Visit * Reason Comments Health Assistance Program Encounter Details Date Type Department Care Team (Late st Contact Info) Description 04/04/2023 Community Health Team [address], [facility] [address] [place] [address] [facility], Health Assistance Program [address] [place] [id number] Social History Tobacco Use Types Packs/Day Years [...] slept in a [facility]p (including now)? 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 Physician Asst (RC) called patient for scheduled appointment to complete the [place] housing application. ?? Patient would like to change housing search to [place], [place] and [place] as she has a son and daughter in each of these areas. ?? Patient has prioritized subsidized housing that allows dogs. ?? RC used [employer] to search for and explore housing options in [facility]. There were no open waitlists for housing that allowed dogs in either [facility]. ?? RC reviewed options in [facility] that were closer to the [place] area such as [place] and [place]. RC advised waitlists will be months to possibly years and she is under no obligation to accept anything she does not want. Patient declined completing the [place] application today or pursuing any housing in [facility]. ?? RC called [employer] to confirm patient's eligibility for transportation. Per [employer], RC completed [employer] Paratransit application with patient for non-medical transportation. RC mailed the application to patient for signature & submission to T. Patient has an upcoming doctor's appointment on 04/22/23 and will sign and bring the provider form for her doctor to complete & submit. ?? Patient is eligible for Medicaid rides to non-urgent medical appointments. Per [facility], patient will also need her provider to submit the Public Transportation Medical Exemption Application. emailed a copy of the application to Dr. Veronica. Plan / Action Items: ?? Patient will mail her completed and signed [employer] Paratransit application back to [facility]. ?? Patient will bring the Paratransit Provider form to her next doctor's appointment on 04/22 for herprovider to complete & submit. ?? RC will follow-up with patient within 10 to 14 days to confirm receipt and submission of [employer] application. Lucie Yao 04/04/23 14:02 documented in this encounter Plan of Treatment Upcoming Encounters Date Type Department Care Team (Late st Contact Info) Description 01/04/2025 13:00 EST Office Visit [facility] Ophthalmology - [address] [phone] Gagandeep Rome MD [address] [place] [address], [facility] [address] [place] [phone] 02/11/2025 13:[address] [facility] Hematology & Oncology [address] [phone] Dana Padilla MD [address] [place] [address], [facility] 2 [place] [phone] documented as of this encounter Visit Diagnoses Not on filedocumented in this encounter Care Teams Tool Design Checker Relationship Specialty Start Date End Date Emigdio Veronica MD [address] [place] [phone] PCP - General Internal Medicine - Primary Care 05/22/20 02/21/24 Izabella Snowden, MICROFILM DUPLICATING UNIT SUPERVISOR 1 [facility], [address]rd [place] [phone] Advertising Sales Representative 02/21/23 05/03/24 documented as of this encounter
--- OUTSIDE RECORDS SUMMARY | 2024-11-22 16:57 | XMS_ITS | Encounter Summary ---
Author Organization [facility] Address [address] [place] [address] Care Team Providers Care Escalator Mechanic Name Role Phone Emigdio Veronica MD Primary Care Provider + Izabella Snowden [facility] Unavailable [phone] None, Provider Primary Care Provider Gabriel Wei Primary Care Provider [phone] Mirna Guerrero Primary Care Provider + Reason for Visit * Reason Onset Date Comments Other 02/25/2023 housing Encounter Details Date Type Department Care Team (Late st Contact Info) Description 02/25/2023 Telephone [facility] Adult Primary Care - [place] [address] [place] [address] Scottie Campuzano PA-C [address] [place] [address] Other (housing) Social History Tobacco Use Types Packs/Day Years [...] slept in a assisted (including now)? 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 No / Unsure 02/14/2023 6:41 EDT documented as of this encounter Functional [...] Telephone Encounter - Scottie Campuzano PA-C - 02/25/2023 1207 EDT Re: housing issues documented in this encounter Plan of Treatment Upcoming Encounters Date Type Department Care Team (Late st Contact Info) Description 01/04/2025 13:00 EST Office Visit [facility] Ophthalmology - [address] [phone] Gagandeep Rome MD [address] [place] [address], [address] [place] [phone] 02/11/2025 13:30 EDT Telemedicine [facility] Hematology & Oncology [address] [phone] Dana Padilla MD [address] [place] [address], [address] [place] [address] documented as of this encounter Visit Diagnoses Not on filedocumented in this encounter Additional Health Concerns Infection Onset Date Last Indicated Resolved Time R/O COVID-19 04/28/2023 04/28/2023 04/29/2023 0:02 EDT R/O COVID-19 09/07/2023 09/07/2023 09/07/2023 22:1 6 EDT documented as of this encounter Care Teams Escalator Mechanic Relationship Specialty Start Date End Date Emigdio Veronica MD [address] [place] [phone] PCP - General Internal Medicine - Primary Care 05/22/20 02/21/24 None, Provider PCP - General 02/24/24 03/18/24 Gabriel Gandara PA PCP - General 03/19/24 09/11/24 Mirna Guerrero PA [address] [place] [address] PCP - General 09/12/24 Izabella Snowden, ROLL CLAMP OPERATOR 1 [facility], 3rd [place] [phone] Certified Substance Abuse Counselor 02/21/23 05/03/24 documented as of this encounter
--- OUTSIDE RECORDS SUMMARY | 2024-11-22 16:57 | XMS_ITS | Encounter Summary ---
Author Organization [facility] Address [address] [place] [address] Care Team Providers Care [employer]otive [employer] Person Name Role Phone Emigdio Veronica MD Primary Care Provider + Izabella Snowden [facility] Unavailable [phone] Reason for Referral * Consult (Routine/Next Available) - Closed Specialty Diagnoses / Procedures Referred By [facility] Referred To Contact Sleep Medicine Diagnoses Chronic insomnia Emigdio Veronica MD Phone: tel: fax: [facility] Sleep Program - [address] [address] Phone: tel: fax: Referral ID Status Reason Start Date Expiration Date V isits Requested Visits Authorized [id number] Closed Specialty Services Required 03/18/2023 1 1 Question Answer Patient Type: Adult Adult Sleep Order Type: Psychologist (for Cognitive Behavior Therapy for Insomnia)-The patient will be sent a questionnaire to complete & return. Once received, the patient will be scheduled with the Psychologist. NOTE: the Psychologist is NOT authorized to order a Sleep Study. Reason for Request: CBT-I for chronic insomnia. 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 No / Unsure 03/13/2023 11:05 EDT documented as of this encounter Last Filed Vital Signs Vital Sign Reading Time Taken Comments Blood Pressure 125/60 03/15/2023 1526 EDT Pulse 85 03/15/2023 1526 EDT R Temperature 36 ??C (96.8 ??F) 03/15/2023 1526 EDT Respiratory Rate 16 03/15/2023 1526 EDT Oxygen Saturation - - Inhaled Oxygen Concentration - - Weight 107.5 kg (237 lb) 03/15/2023 1526 EDT Height - - Body Mass Index 40.68 03/13/2023 1059 EDT documented in this encounter Functional Status [...] Soila Murphy RN documented in this encounter Patient Instructions * Patient Instructions* Ashley Weems - 03/15/2023 15:30 EDT Quitting smoking Stopping smoking is the [...] with a trained counselor. Tobacco Counseling in [facility] offers free counseling services to residents who are ready to cut back or quit using tobacco. Services include: phone coaching (NOW), online tools and support for those who would like to make changes on their own (www.Miappi.org), as well as in-person group workshops. Free nicotine replacement therapy is available through all of these resources. To learn more about your options visit www.Miappi.org or call 2-053-GNVJ-NOW ( ). To speak with an in-person tobacco counselor in [facility] call, [phone]. [facility], please visit: [email or web address] I hope you quit smoking. I think [...] Pain. Daily Max: 15 mg 84 Tablet 03/15/2023 04/08/2023 documented in this encounter Progress Notes * Emigdio Veronica MD - 03/15/2023 1530 EDT Tara Yun is a 62 y.o. female with a PMHx of chronic pain syndrome, pancytopenia, NAFLD, COPD, mixed anxiety and depressive disorder, HUEY PRIMARY CARE PROVIDER: Emigdio Veronica CHIEF COMPLAINT: Chief Complaint Patient presents with ??? Post-ED Follow Up ??? Depression SUBJECTIVE: Tara Yun presents today for a follow-up visit. Tara confirms that she was recently in the ED for chief complaint of left- sided flank pain and hematuria. She confirms a longstanding history of nephrolithiasis and suspects that her flank pain and urinary bleeding was related to another stone. She did receive a CT renal scan that did not revealany evidence of an impacted stone or bladder pathology. She states that since presenting to the ER her flank pain and hematuria have improved but not fully resolved. She is notably on Lovenox for thehistory of secondary hypercoagulable state. She continues to report struggles with insomnia as well as generalized anxiety disorder. She confirms that she has recently started CPAP therapy and is compliant with her using her CPAP machine. She has not noticed a substantial improvement in her sleep but notes that her biggest issue to obtainingrestful sleep is currently initiating sleep. She states that she struggles with high anxiety at night and racing thoughts. She recently saw Scottie Campuzano in our office and had her longstanding venlafaxine dose increased to 150 mg daily. She states that she has been on this increased dosage for around 3 weeks. She was also offered BuSpar to take nightly for anxiety but she states after using it once or twice she noticed no improvement in her symptoms. She has not received counseling for cognitivebehavioral therapy for insomnia in the past and would be open to seeing a psychological sleep provider. She is requesting a refill of her oxycodone prescription today. She is requesting a vacation override for a refill today as she is planning to leave to [place] with her family this evening. Sheis due for refill of her oxycodone tomorrow. ROS as above Medications and history reviewed. Current Outpatient Medications Medication ??? albuterol 90 mcg/actuation inhaler ??? chlorzoxazone (PARAFON FORTE) 500 mg tablet ??? diclofenac sodium gel ??? enoxaparin (LOVENOX) 60 mg/0.6 mL injection ??? fluticasone propionate (FLOVENT DISKUS) 100 mcg/actuation blister with device ??? furosemide (LASIX) 20 mg tablet ??? gabapentin (NEURONTIN) 300 mg capsule ??? INCRUSE ELLIPTA 62.5 mcg/actuation ??? ketotifen (ZADITOR) 0.025 % (0.035 %) ophthalmic solution ??? lactulose (CHRONULAC) 10 gram/15 mL solution ??? levothyroxine (SYNTHROID) 25 mcg tablet ??? lidocaine 2 % solution ??? lidocaine 4 % patch ??? naloxone (NARCAN) 4 mg/actuation nasal spray ??? ondansetron (ZOFRAN) 4 mg tablet ??? oxyCODONE (ROXICODONE) 5 mg immediate release tablet ??? OXYGEN-AIR DELIVERY SYSTEMS MISC ??? pantoprazole (PROTONIX) 40 mg tablet ??? polyethylene glycol (GOLYTELY;NULYTELY) 236-22.74-6.74 -5.86 gram suspension ??? spironolactone (ALDACTONE) 100 mg tablet ??? sucralfate (CARAFATE) 1 gram tablet ??? traZODone (DESYREL) 100 mg tablet ??? venlafaxine (EFFEXOR-XR) 150 mg XR capsule No current facility-administered medications for this visit. Facility-Administered Medications Ordered in Other Visits Medication Route Frequency ??? albuterol (ACCUNEB) 2.5 mg /3 mL (0.083 %) nebulizer solution OBJECTIVE: BP 125/60 (BP Cuff Location: Left arm, BP Patient Position: Sitting, BP Cuff Sizes: Adult, long) Pulse 85 Comment: R Temp 36 ??C (96.8 ??F) (Skin) Resp 16 Wt (!) 107.5 kg (237 lb) BMI 40.68kg/m?? Gen: Well appearing middle-age female, NAD HEENT: EOMI, PERRL, conjunctiva pink, no scleral injection/ icterus Abd: +BS, soft, NT, mildly distended, hepatomegaly noted Extrem: no edema, warm and well perfused Skin: No rashes or erythema, intact Psych: Ok mood and congruent affect, thought content, within normal limits thought process withinnormal limits, speech within normal limits, dressed appropriate for season, no endorsed SI or HI, judgment and insight appears fair Neuro: A&Ox3, CN II through XII grossly intact Recent Labs/Imaging: ASSESSMENT and PLAN: Tara was seen today for post-ed follow up and depression. Diagnoses and all orders for this visit: Gross hematuria: Office UA today reveals the presence of +1 RBCs. A relative improvement from her ER UA that was notable for +3 RBCs. Patient with a known history of nephrolithiasis who believes thather recent episode of flank pain and gross hematuria could have been secondary to her recurrent stone. However no stone was detected on CT renal scan. Unclear if patient passed stone just prior to scan or if hematuria is secondary to a bladder pathology. - POCT URINE CLINITEK (DIPSTICK) - DOES NOT REFLEX -We will have patient closely monitor urine over the next few weeks. Should hematuria fail to resolve would have a low threshold for urology referral as well as arranging a urine cytology and CT urogram Chronic insomnia, Mixed anxiety and depressive disorder: Suspect multifactorial etiology of insomnia. Given patient's reports of increased anxiety burden will continue to focus on combined insomnia and anxiety management. -We will refer patient to sleep medicine for consultation with a psychological provider for CBT-I. -For now continue venlafaxine at 150 mg daily. We will follow-up at her next encounter on anxiety burden -For now continue trazodone as previously prescribed -We will discontinue BuSpar -Should anxiety and sleep remain poor at our next encounter could consider swapping trazodone for mirtazapine Chronic pain syndrome: Unchanged -28-day refill provided for oxyCODONE (ROXICODONE) 5 mg immediate release tablet; Take 1 Tablet by mouth 3 times daily as needed for up to 28 days for Pain. Daily Max: 15 mg. Vacation override provided at this encounter. We will continue to closely monitor patient's refill patterns. Patient has hadan issue with drug-seeking behavior in the past and has notably requested early refills in the past. No additional early refills or vacation override should be authorized without this provider's explicit permission. Healthcare maintenance Health Maintenance Topic Date Due ??? Asthma Action Plan Never done ??? Lung Function Test (Spirometry) Never done ??? Copd Action Plan Never done ??? Advance Directive Never done ??? Preventive Care Visit Never done ??? Cervical Cancer Screening Never done ??? Colorectal Cancer Screening Never done ??? Breast Cancer Screening Never done ??? COVID-19 Vaccine (5 - Booster for Pfizer series) 07/15/2022 ??? Urine Drug Screen 09/17/2023 (Originally 04/29/2022) ??? Pill Count 09/17/2023 (Originally 02/19/2022) ??? Prescription Agreement 06/25/2023 ??? Review Of Systems Adverse Effects 08/11/2023 ??? Functional Assessment 08/11/2023 ??? Current Opioid Misuse Measurement 08/11/2023 ??? [place] Prescription Monitoring System 09/17/2023 ??? Opioid Informed Consent 12/14/2023 ??? Social Determinants Of Health (SDOH) 02/25/2024 ??? Behavioral Health Screen 02/25/2024 ??? Pneumococcal Immunization (4 - PPSV23 if available, else PCV20) 2025 ??? Lipid Profile Screening (Cholesterol) 04/16/2027 ??? Tetanus (Adult) Immunization 03/17/2029 ??? HIV Screening Completed ??? Shingles Immunization Completed ??? Hepatitis C Screen Completed ??? Influenza Immunization (Adult) Completed ??? Pertussis (Adult) Immunization Discontinued F/u: As scheduled I spent a total of 37 minutes with this patient today face to face, in chart review and in documentation and 30 minutes of that time was spent on education and counseling for gross hematuria, chronicinsomnia, mixed anxiety and depressive disorder, chronic pain syndrome and healthcare maintenance. Some of this note was transcribed with CueThinkating software. While it was proofread, it may still contain unnoticed grammatical or word errors due to incorrect transcribing. Emigdio Veronica MD 03/18/2023 9:38 * Maria C Weemsela - 03/15/2023 1530 EDT poct urine dipstick done today I was supervised by DR. Veronica who was present and immediately available in the office suite. Ashley Weems 03/15/2023 16:30 documented in this encounter Plan of Treatment Upcoming Encounters Date Type Department Care Team (Late st Contact Info) Description 01/04/2025 13:00 EST Office Visit [facility] Ophthalmology - [address] [id number] Gagandeep Rome MD [address] [place] [address] [address] [place] [address] 02/11/2025 13:30 EDT Telemedicine [facility] On[facility] - [address] [phone] Dana Padilla MD [address] [place] [address], [facility] [address] [place] [phone] Scheduled Referrals Name Type Priority Associated Diagnoses Order Schedule AMB CONS/FOLLOW UP SLEEP MEDICINE Outpatient Referral Routine/Next Available Chronic insomnia Expected: 03/22/2023 (Approximate), Expires: 03/15/2024 documented as of this encounter Procedures Procedure Name Priority Date/Time Associated Diagnosis Comments POCT URINE DIPSTICK, CLINITEK Routine 03/15/2023 16:26 EDT Gross hematuria POCT CSN BARCODE URINE DIPSTICK Routine 03/15/2023 15:59 EDT Gross hematuria POCT URINE CLINITEK (DIPSTICK) - DOES NOT REFLEX Routine 03/15/2023 15:59 EDT Gross hematuria documented in this encounter Results * (ABNORMAL) POCT URINE DIPSTICK, CLINITEK (03/15/2023 16:26 EDT) Color, UA Yellow Yellow 03/15/2023 16:27 EDT [facility] Clarity, UA Clear Clear 03/15/2023 16:27 EDT [facility] Glucose, UA Negative Negative 03/15/2023 16:27 EDT [facility] Bilirubin, UA Negative Negative 03/15/2023 16:27 EDT [facility] Ketones, UA Negative Negative 03/15/2023 16:27 [facility] Specific [place], Urine >=1.030 1.001 - 1.035 03/15/2023 16:27 T [facility] Blood, UA 1+(A) Negative 03/15/2023 16:27 [facility] pH, UA 5.5 4.6 - 8.0 03/15/2023 16:27 EDT [facility] Protein, UA Negative Negative 03/15/2023 16:27 [facility] Urobilinogen, UA 1.0 0.2 - 1.0 mg/dL 03/15/2023 16:27 T [facility] Nitrite, UA Negative Negative 03/15/2023 16:27 [facility] Leuk Esterase Negative Negative 03/15/2023 16:27 [facility] HN LAB COMMENT (CLINITEK, UR) Test performed at [facility] 03/15/2023 16:27 EDT [facility] Urine URINE SPECIMEN COLLECTION, CLEAN CATCH / Unknown 03/15/2023 16:26 EDT 03/15/2023 16:27 EDT us Emigdio Veronica MD POINT OF CARE TEST ORDER YANN Final Result [facility] [address] [place] [address] * POCT CSN BARCODE URINE DIPSTICK (03/15/2023 15:59 EDT) Urine URINE SPECIMEN COLLECTION, CLEAN CATCH / Unknown 03/15/2023 15:59 EDT 03/15/2023 15:59 EDT us Emigdio Veronica MD LAB INFO SERVICE AND SUP PORT & PHONE RESULT Final Result [facility] [address] [place] [address] documented in this encounter Visit Diagnoses Diagnosis Gross hematuria- Primary Chronic insomnia Insomnia, unspecified Mixed anxiety and depressive disorder Dysthymic disorder Chronic pain syndrome Healthcare maintenance Routine general medical examination at a health care facility documented in this encounter Discontinued Medications Medication Sig Discontinue Reason Start Date End Da te busPIRone (BUSPAR) 5 mg tablet Take 1 , 2, or 3 at bedtime for anxiety. may repeat after 6 hours if needed. Patient Stopped Taking 02/24/2023 03/15/2023 oxyCODONE (ROXICODONE) 5 mg immediate release tablet Take 1 Tablet by mouth 3 times daily as needed for up to 28 days for Pain. Daily Max: 15 mg Reorder 02/16/2023 03/15/2023 documented as of this encounter Care Teams Automotive Parts Person Relationship Specialty Start Date End Date Emigdio Veronica MD [address] [place] [phone] PCP - General Internal Medicine - Primary Care 05/22/20 02/21/24 Izabella Snowden, [facility] 1 [facility], [address]rd [place] [phone] Roof Plumber 02/21/23 05/03/24 documented as of this encounter
--- OUTSIDE RECORDS SUMMARY | 2024-11-22 16:57 | XMS_ITS | Encounter Summary ---
Author Organization [facility] Address [address] [place] [address] Care Team Providers Care Provider Enrollment Specialist Name Role Phone Emigdio Veronica MD Primary Care Provider + Izabella Snowden [facility] [phone] Reason for Visit * Reason Comments Health Assistance Program Encounter Details Date Type Department Care Team (Late st Contact Info) Description 03/08/2023 Community Health Team [address], [facility] [address] [place] [address] [facility], Health Assistance Program [address] [place] [phone] Social History Tobacco Use Types Packs/Day Years [...] 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 Import Export Clerk (RC) made a third attempt to reach patient and left a voicemail to call RC at [phone] so that RC can offer support.. ?? RC mailed an Unable to Contact Letter to patient. Plan / Action Items: ?? If RC does not hear back from patient, no additional attempts will be made but RC support alwaysremains available. Lucie Yao 03/08/23 9:42 documented in this encounter Plan of Treatment Upcoming Encounters Date Type Department Care Team (Late st Contact Info) Description 01/04/2025 13:00 EST Office Visit [facility] Ophthalmology - [address] [phone] Gagandeep Rome MD [address] [place] [address], [address] [place] [phone] 02/11/2025 13:30 EDT Telemedicine [facility] Hematology & Oncology [address], [place] [address] Dana Padilla MD [address] [facility], [facility], [address] [place] [phone] documented as of this encounter Visit Diagnoses Not on filedocumented in this encounter Care Teams Provider Enrollment Specialist Relationship Specialty Start Date End Date Emigdio Veronica MD [address] [place] [phone] PCP - General Internal Medicine - Primary Care 05/22/20 02/21/24 Izabella Snowden, [facility] 1 [facility], 3rd [place] [phone] Editor Department 02/21/23 05/03/24 documented as of this encounter
--- OUTSIDE RECORDS SUMMARY | 2024-11-22 16:57 | XMS_ITS | Encounter Summary ---
Author Organization [facility] Address [address] [place] [address] Care Team Providers Care Business Development Manager Name Role Phone Emigdio Veronica MD Primary Care Provider + Izaeblla Snowden [facility] [phone] Reason for Visit * Reason Comments Health Assistance Program Encounter Details Date Type Department Care Team (Late st Contact Info) Description 02/21/2023 Community Health Team [address], [facility] [address] [place] [address] [facility], Health Assistance Program [address] [place] [id number] Social History Tobacco Use Types Packs/Day Years [...] like food, housing, medical care, and heating? Hard 05/22/2020 PHQ-2 Answer Date Recorded PHQ-2 SUBTOTAL 6 02/16/2023 Hunger Vital Sign Answer Date Recorded Within the past 12 months, y ou worried that your food would run out before you got the money to buy more. Sometimes true Within the past 12 months, t he food you bought just didn't last and you didn't have money to get more. Sometimes true 12/2019 PRAPARE - Transportation Answer Date Re corded In the past 12 months, has l ack of transportation kept you from medical appointments or from getting medications? No 12/2019 In the past 12 months, has l ack of transportation kept you from meetings, work, or from getting things needed for daily living? 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 Transportation Notes: ?? [employer]dl Company Driver (RC) called patient and left a voicemail to call RC back at [phone]. Plan / Action Items: ?? RC will call patient again within 7 to 10 days. Lucie Yao 02/21/23 15:57 documented in this encounter Plan of Treatment Upcoming Encounters Date Type Department Care Team (Late st Contact Info) Description 01/04/2025 13:00 EST Office Visit [facility] Ophthalmology - [address] [phone] Gagandeep Rome MD [address] [place] [address], [facility] [address] [place] [phone] 02/11/2025 13:30 EDT [facility]medicine [facility] - [address] [phone] Dana Padilla MD [address] [place] [address], [facility] [address] [place] [phone] documented as of this encounter Visit Diagnoses Not on filedocumented in this encounter Care Teams Business Development Manager Relationship Specialty Start Date End Date Emigdio Veronica MD [address] [place] [phone] PCP - General Internal Medicine - Primary Care 05/22/20 02/21/24 Izabella Snowden LICSW 1 [facility], 3rd [place] [phone] Shank Boner 02/21/23 05/03/24 documented as of this encounter
--- OUTSIDE RECORDS SUMMARY | 2024-11-22 16:57 | XMS_ITS | Encounter Summary ---
Author Organization [facility] Address [address] [place] [address] Care Team Providers Care Sales Representative Uniforms Name Role Phone Emigdio Veronica MD Primary Care Provider + Izabella Snowden [facility] Unavailable [phone] Reason for Visit * Reason Comments Flank Pain Referred by [facility], 06/30 lower back/flank pain with hematuria starting yesterday, +N/V. Hx of kidney stones. Encounter Details Date Type Department Care Team (Late st Contact Info) Description 03/13/2023 10:53 EDT - 03/13/2023 17:36 EDT Emergency [facility] Emergency Department - [address] [phone] Heike Valdez PA-C [address] [place] [phone] Jesus Steele MD [address] [place] [phone] Gross hematuria (Primary Dx) Discharge Disposition: Home or Self Care Social [...] in a long term (including now)? 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 No / Unsure 03/13/2023 11:05 EDT documented as of this encounter Last Filed Vital Signs Vital Sign Reading Time Taken Comments Blood Pressure 128/67 03/13/2023 1723 EDT Pulse 90 03/13/2023 1059 EDT Temperature 37.1 ??C (98.7 ??F) 03/13/2023 1723 EDT Respiratory Rate 14 03/13/2023 1723 EDT Oxygen Saturation 96% 03/13/2023 1723 EDT Inhaled Oxygen Concentration - - Weight 104.3 kg (230 lb) 03/13/2023 1059 EDT Height 162.6 cm (5' 4) 03/13/2023 1059 EDT Body Mass Index 39.48 03/13/2023 1059 EDT documented in this encounter [...] Soila Murphy RN documented in this encounter Discharge Instructions * Discharge Instructions* Heike Valdez PA-C - 03/13/2023 17:18 EDT You were seen in the emergency department for your flank pain. Your exam was reassuring. Your urinedid show blood. This needs to be follow-up with your urologist as you likely need a cystoscopy, andadditional tests to see why there could be blood. Your CAT scan was also normal. There is no evidence of kidney stones Please also follow-up with your primary care doctor Return to the emergency department with any new or worsening symptoms documented in this encounter Medications at Time of Discharge diclofenac sodium gel Apply 2 g topically 2 times daily as needed for Pain (Knee pain). 50 g 1 06/25/2022 INCRUSE ELLIPTA 62.5 mcg/actuationIndi cations:Chronic obstructive pulmonary disease, unspecified COPD type ([facility]) INHALE 1 PUFF BY MOUTH DIRECTED [...] needed for Wheezing. 1 Inhaler 04/13/2021 3 busPIRone (BUSPAR) 5 mg tablet Take 1 , 2, or 3 at bedtime for anxiety. may repeat after 6 hours if needed. 60 Tablet 02/24/2023 3 chlorzoxazone (PARAFON FORTE) 500 mg tablet TAKE 1 TABLET BY MOUTH THREE TIMES A DAY NEEDED FOR MUSCLE SPASMS 90 Tablet 1 11/09/2022 3 enoxaparin (LOVENOX) 60 mg/0.6 mL injection Inject 60 mg into the skin daily. 54 mL 3 02/17/2023 3 fluticasone propionate (FLOVENT DISKUS) 100 mcg/actuation blister with device 4 furosemide (LASIX) 20 mg tabletIndications :Bilateral lower extremity edema Take 2 Tablets by mouth daily. Can take additional 20 mg tablet for a total of 60 mg martin if weights are up by greater then 2 pounds from baseline 09/29/2022 3 gabapentin (NEURONTIN) 300 mg capsule Take 1 Capsule by mouth 3 times daily. 270 Capsule 03/12/2023 3 ketotifen (ZADITOR) 0.025 % (0.035 %) ophthalmic solution PLACE 1 DROP IN BOTH EYES TWICE DAILY NEEDED FOR EYE IRRITATION. DAILY MAX: 2 DROPS PER EYE 5 mL 3 10/12/2022 3 levothyroxine (SYNTHROID) 25 mcg tablet Take 1 Tablet by mouth daily. 90 Tablet 1 10/21/2022 3 lidocaine 2 % solution Take 10 mL by mouth every 3 hours as needed for Pain. 100 mL 10/26/2022 3 lidocaine 4 % patch Apply to back once daily as needed for pain. Remove after 12 hours of use. 30 Patch 1 06/25/2022 3 ondansetron (ZOFRAN) 4 mg tablet Take 1 Tablet by mouth every 8 hours as needed for Nausea. 30 Tablet 03/12/2023 3 oxyCODONE (ROXICODONE) 5 mg immediate release tablet Take 1 Tablet by mouth 3 times daily as needed for up to 28 days for Pain. Daily Max: 15 mg 84 Tablet 02/16/2023 3 pantoprazole (PROTONIX) 40 mg tablet Take 1 Tablet by mouth 2 times daily. 180 Tablet 3 06/21/2022 3 polyethylene glycol (GOLYTELY;NULYTEL Y) 236-22.74-6.74 -5.86 gram suspension Instructions mailed once procedure scheduled. 4000 mL 12/13/2022 3 spironolactone (ALDACTONE) 100 mg tablet TAKE 1 TABLET BY MOUTH EVERY DAY 90 Tablet 1 11/19/2022 3 sucralfate (CARAFATE) 1 gram tablet TAKE 1 TABLET BY MOUTH FOUR TIMES A DAY 120 Tablet 3 05/10/2022 4 traZODone (DESYREL) 100 mg tablet Take 2 Tablets by mouth at bedtime. 180 Tablet 1 01/05/2023 3 venlafaxine (EFFEXOR-XR) 150 mg XR capsule Take 1 Capsule by mouth daily. (total daily dose of this medication is 150 mg). 90 Capsule 3 02/24/2023 4 documented as of this encounter Discharge Disposition Disposition Code Departure Means Destination Home or Self Detention documented in this encounter ED Notes * Ioana Camara RN - 03/13/2023 1923 EDT Patient ordered for discharge. IV removed. Discharge teaching provided. Patient verbalized understanding discharge instruction, follow up, and return criteria. NAD noted or verbalized by patient. Patient ambulated with a steady gait off the unit, states she has friend coming to pick her up. * Heike Valdez PA-C - 03/13/2023 1129 EDT Images from the original note were not included. [facility] Emergency Department Note Emergency Department Visit Medical Decision Making This is a 62 y.o. female with PMHx of COPD, HUEY, asthma, GERD, decompesnated liver cirrhosis, thrombocytopenia, PVT who is presenting to the Emergency Department with flank pain. Vital signs stable. Physical examination as below noteable for left and right CVA tenderness. Differential diagnosis includes: renal colic, UTI, pyelonephritis, diverticulitis, RP bleed given she is anticoagulated. Will obtain labs including: CBC, CMP, UA, CT abd/pelvis. Will provide analgesia, antiemetics, observe andreassess. Patient seen and discussed with Dr. Steele who agrees with the workup and plan. Medical Decision Making Gross hematuria: acute illness or injury Amount and/or Complexity of Data Reviewed Labs: ordered. Decision-making details documented in ED Course. Radiology: ordered. Decision-making details documented in ED Course. Risk Prescription drug management. Decision regarding hospitalization. Imaging CT RENAL STONE Final Result 1. No acute or significant abnormality in the abdomen and pelvis on noncontrast CT including no evidence of urinary tract calculus. 2. Cirrhosis. 3. Unchanged splenomegaly with prior coil embolization. 4. Prior hysterectomy, cholecystectomy, appendectomy, and ventral hernia repair. I have personally reviewed the images and the above interpretation and agree with the findings. ED Course Relevant Data as of 03/13/23 1721 Sun Mar 13, 2023 1316 CBC with leukopenia 3.7. Platelets 87. Not neutropenic. CMP with creatinine of 1.35. Urinalysis with greater than 50 red blood cells, 4-10 white blood cells. [AC] 1359 1. No acute or significant abnormality in the abdomen and pelvis on noncontrast CT including no evidence of urinary tract calculus. 2. Cirrhosis. 3. Unchanged splenomegaly with prior coil embolization. 4. Prior hysterectomy, cholecystectomy, appendectomy, and ventral hernia repair. [AC] 1718 Patient feeling improved. We will plan to discharge home we did discuss following up with urology in regards to her hematuria as she may benefit from cystoscopy although this also could be from her Lovenox. We will plan to discharge home with follow-up. [AC] Relevant Data User Index [AC] Heike Valdez, WILLY The following problems were addressed: Final diagnoses: Gross hematuria Chief complaint: Left flank pain FINA Yun is a 62 y.o. female who presents to the Emergency Department for left-sided flank pain. Pain started 2 days ago. Her pain radiates in the right side as well. She endorses nausea and subjective fevers. She also reports hematuria. She has been compliant with her Lovenox. She does havehypertension. Her urologist is Dr. Ortez. She denies any trauma. She denies chest pain or shortness of breath. She reports chronic leg edema. She was unable to take her daily oxycodone because of her pain and vomiting. History was provided by: Patient Patient's pertinent PMH, FH, SH were reviewed and edited as necessary. Physical Exam Patient Vitals for the past 24 hrs: BP Temp Temp src Pulse Resp SpO2 Height Weight 03/13/23 1059 126/74 36.6 ??C (97.9 ??F) Oral 90 18 96 % 162.6 cm (64) (!) 104.3 kg (230 lb) A medical screening exam was performed. Physical Exam General: Awake, in no acute distress. HEENT: Normocephalic, atruamatic. EOMI. Nares patent. Neck: Supple, full ROM. Pulmonary: Lungs clear to auscultation bilaterally. No wheezes, rales, or rhonchi. Chest wall non-tender to palpation. Cardiovascular: Regular rhythm and rate. No murmur, rub, or gallop. GI: Abdomen soft, non-tender, non-distended. No rebound or guarding. Skin: Ecchymosis and striae to the lower abdomen : L CVA and R CVA tenderness MSK: Normal ROM of upper and lower extremities. No lower extremity edema. No deformities. Neuro: Sensation to light touch intact. 5/5 motor strength throughout. Psych: Normal mood and affect. Disposition: Home Cosigned by Jesus Steele MD at 03/14/2023 14:46 EDT Associated attestation - Jesus Steele MD - 03/14/2023 1446 EDT IJesus MD, reviewed this case with the Advanced Practice Provider (IVA) and have reviewed the IVA's note. I evaluated this patient [id number] and provided a substantive portion of the patient's care. My personal evaluation included a face to face history and physical exam, review of nursing notes, review of vital signs, review of relevant records, and review of diagnostic data. Based on these elements I formulated, and/or participated substantively in the medical decision making,including assessing the level of risk of the patient's complaints and condition, establishing a diagnosis and/or selecting management options. My personal documentation is as follows: External records reviewed included telephone notes from day prior (4 notes from this date) related to her prescription drug management her running out of medication these being refilled and not beingable to eat due to nausea. Telephone note from February 25, 2023 by PA related to the patient's housing issues and this social determinant of health and transportation issues seem potentially have adverse impact on the patient's health and ability to optimize her healthcare status. External record from February 24, 2023 also reviewed was a follow-up primary care encounter related to the patient's a previous visit for respiratory complaints treated with nebs prednisone and azithromycin. Patient complains of flank pain in this emergency department visit no dysuria or fever Nursing notes reviewed vital signs reviewed And physical exam she is nontoxic-appearing Lungs with clear but with prolonged expiratory phase Abdomen soft nontender There is mild bilateral CVA tenderness Distal motor and sensory exam intact Work-up in the emergency department included a comprehensive metabolic panel which showed slightly elevated creatinine over her baseline otherwise unremarkable urinalysis which demonstrated red bloodcells and moderate squames of lipase and a CT renal stone protocol which failed to demonstrate any ureteral stones or other acute pathology. His CAT scan did redemonstrate her known cirrhosis and splenomegaly. She was treated with parenteral analgesics while on the monitor and pulse oximetry given her respiratory condition and this had called intensive monitoring to avoid hypoxemia and she was treated witha antiemetic for her nausea her symptoms improved and she was judged stable for discharge and outpat ient follow-up for this back pain of uncertain etiology with [id number] Tylenol for management and contingency to return to the emergency department for worsening Final diagnoses: Gross hematuria documented in this encounter Plan of Treatment Upcoming Encounters Date Type Department Care Team (Late st Contact Info) Description 01/04/2025 13:00 EST Office Visit [facility] Ophthalmology - [address] [phone] Gagandeep Rome MD [address] [place] [address] [address] [place] [phone] 02/11/2025 13:30 EDT Telemedicine [facility] Hematology & Oncology - [address] [phone] Dana Padilla MD [address] [place] [address], [facility] [address] [place] [phone] documented as of this encounter Procedures Procedure Name Priority Date/Time Associated Diagnosis Comments CT RENAL STONE STAT 03/13/2023 12:51 EDT URINE CHEMICAL (DIP) & SEDIMENT (MICRO) WITH REFLEX TO CULTURE STAT 03/13/2023 12:30 EDT BACTERIAL CULTURE, URINE Today 03/13/2023 12:30 EDT COMPLETE BLOOD COUNT AND DIFFERENTIAL STAT 03/13/2023 12:13 EDT LIPASE STAT 03/13/2023 12:13 EDT COMPREHENSIVE METABOLIC PANEL (CMP) STAT 03/13/2023 12:13 EDT documented in this encounter Results * CT RENAL STONE (03/13/2023 12:51 EDT) Anatomical Region Laterality Modality Body, Abdomen Computed Tomogra phy 03/13/2023 13:1 8 EDT Impressions 03/13/2023 13:18 EDT 1. ??No acute or significant abnormality in the abdomen and pelvis on noncontrast CT including no evidence of urinary tract calculus. 2. ??Cirrhosis. 3. ??Unchanged splenomegaly with prior coil embolization. 4. ??Prior hysterectomy, cholecystectomy, appendectomy, and ventral hernia repair. I have personally reviewed the images and the above interpretation and agree with the findings. Narrative 03/13/2023 13:[address] RENAL STONE ??03/13/2023 12:00 PM Signs and Symptoms/Comments: ?? History of renal stones requiring intervention presenting with left-sided flank pain rating to the right side, on Lovenox; History of renal stones requiring intervention presenting with left-sided flank pain rating to the right side, on Lovenox Technique: Axial CT images obtained from abdomen immediately superior to level of kidneys through the pelvis without administration of contrast of any kind. Sagittal and coronal reformats generated. Comparison: Abdomen/pelvis CT 02/14/2023. Findings: Included lung bases: Lung bases are clear. Unenhanced liver and gallbladder, as far as included: Cirrhotic configuration of the liver. Limited evaluation of the hepatic parenchyma on noncontrast CT. Prior cholecystectomy. Unchanged mild intrahepatic and extra hepatic biliary ductal dilatation. Unenhanced spleen, pancreas, adrenal glands: Unchanged splenomegaly status post coil embolization. No pancreatic ductal dilatation. Unchanged thickened appearance of the left adrenal gland. Normal right adrenal gland. Kidneys, ureters, bladder: No contour deforming renal lesions. No hydroureteronephrosis or urinary tract calculus. Underdistended urinary bladder with no significant finding. Uterus, adnexa: Prior hysterectomy. No adnexal masses. Bowel: No bowel obstruction or acute inflammation. Scattered sigmoid diverticula without associated inflammatory changes. Prior appendectomy. Peritoneal cavity: No intraperitoneal free fluid or air. Abdominal wall: No bowel-containing hernias. Multiple soft tissue nodules present within the anterior subcutaneous abdominal wall, likely the sequela of subcutaneous injections. Prior right ventral hernia repair with mesh noted. Lymphovascular: No enlarged lymph nodes. Atherosclerotic calcifications in the abdominal aorta without aneurysmal dilatation.. Musculoskeletal: No concerning osseous lesions. Degenerative changes in the spine. Placement Director: No additional findings. Procedure Note Tino Wood MD - 03/13/2023 CT RENAL STONE 03/13/2023 12:00 PM Signs and Symptoms/Comments: History of renal stones requiring intervention presenting with left-sidedflank pain rating to the right side, on Lovenox; History of renal stonesrequiring intervention presenting with left-sided flank pain rating to theright side, on Lovenox Technique: Axial CT images obtained from abdomen immediately superior to level ofkidneys through the pelvis without administration of contrast of any kind.Sagittal and coronal reformats generated. Comparison: Abdomen/pelvis CT 02/14/2023. Findings: Included lung bases: Lung bases are clear. Unenhanced liver and gallbladder, as far as included: Cirrhoticconfiguration of the liver. Limited evaluation of the hepatic parenchymaon noncontrast CT. Prior cholecystectomy. Unchanged mild intrahepatic andextra hepatic biliary ductal dilatation. Unenhanced spleen, pancreas, adrenal glands: Unchanged splenomegaly statuspost coil embolization. No pancreatic ductal dilatation. Unchangedthickened appearance of the left adrenal gland. Normal right adrenalgland. Kidneys, ureters, bladder: No contour deforming renal lesions. Nohydroureteronephrosis or urinary tract calculus. Underdistended urinarybladder with no significant finding. Uterus, adnexa: Prior hysterectomy. No adnexal masses. Bowel: No bowel obstruction or acute inflammation. Scattered sigmoiddiverticula without associated inflammatory changes. Prior appendectomy. Peritoneal cavity: No intraperitoneal free fluid or air. Abdominal wall: No bowel-containing hernias. Multiple soft tissue nodulespresent within the anterior subcutaneous abdominal wall, likely thesequela of subcutaneous injections. Prior right ventral hernia repair withmesh noted. Lymphovascular: No enlarged lymph nodes. Atherosclerotic calcifications inthe abdominal aorta without aneurysmal dilatation.. Musculoskeletal: No concerning osseous lesions. Degenerative changes inthe spine. Placement Director: No additional findings. IMPRESSION 1. No acute or significant abnormality in the abdomen and pelvis onnoncontrast CT including no evidence of urinary tract calculus. 2. Cirrhosis. 3. Unchanged splenomegaly with prior coil embolization. 4. Prior hysterectomy, cholecystectomy, appendectomy, and ventral herniarepair. I have personally reviewed the images and the above interpretation andagree with the findings. Heike Valdez PA-C IMG CT ORDERABLES Final Resul t * BACTERIAL CULTURE, URINE (03/13/2023 12:30 EDT) Organism ID Less than 10,000 CFU/ml usual urogenital tiffanie. 03/15/2023 7:[address] [facility] Urine URINE SPECIMEN COLLECTION, CLEAN CATCH / Unknown Urine Collect / Unknown 03/13/2023 12:30 EDT 03/13/2023 12:48 EDT Heike Valdez PA-C MICROBIOLOGY - GENERAL ORDERA BLES Final Result [facility] [address] [place] [address] * (ABNORMAL) URINE CHEMICAL (DIP) & SEDIMENT (MICRO) WITH REFLEX TO CULTURE (03/13/2023 12:30 EDT) Color UA Yellow Colorless, Yellow 03/13/2023 12:[address] [facility] Clarity UA Hazy(A) Clear 03/13/2023 12:48 [facility] Glucose UA Negative Negative 03/13/2023 12:48 [facility] Bilirubin UA Negative Negative 03/13/2023 12:48 [facility] Ketones UA Negative Negative 03/13/2023 12:48 [facility] Specific [place], Urine 1.010 1.001 - 1.035 03/13/2023 12:48 [facility] Blood UA 3+(A) Negative 03/13/2023 12:48 [facility] Urobilinogen UA Normal Normal mg/dL 03/13/2023 12:48 [facility] Nitrite UA Negative Negative 03/13/2023 12:48 [facility] Leukocyte Esterase UA Negative Negative 03/13/2023 12:48 [facility] Protein UA Negative Negative 03/13/2023 12:48 [facility] pH, UA 5.5 4.6 - 8.0 03/13/2023 12:48 [facility] Urine RBC Count, Auto >50(A) 0 - 2 Cells/HPF 03/13/2023 12:48 [facility] Urine WBC Count, Auto 4 - 10(A) 0 - 3 Cells/HPF 03/13/2023 12:48 [facility] Urine Squamous Count, Auto Moderate(A) None Seen Cells/HPF 03/13/2023 12:48 [facility] Urine Hyaline Cast Count, Auto <=10 <=10 Casts/LPF 03/13/2023 12:48 [facility] Urine Bacteria Count, Auto None Seen None Seen Bacteria/HP F 03/13/2023 12:48 [facility] Urine URINE SPECIMEN COLLECTION, CLEAN CATCH / Unknown Urine Collect / Unknown 03/13/2023 12:30 EDT 03/13/2023 12:36 [facility] - 03/13/2023 12:48 EDT A Urine Culture test has been reflexively ordered based on result criteria from the Urine Sediment Analysis. Urine Sediment Analysis results are unreliable on urines that are unrefrigerated for >2 hrs or refrigerated >8 hrs. us Heike Valdez PA-C URINALYSIS ORDERABLES Final R esult Performing Organization Address City/[facility]/ZIP Co de Phone Number [facility] [address] [place] [address] * LIPASE (03/13/2023 12:13 EDT) Lipase 90 <251 U/L 03/13/2023 12:[address] [facility] Blood VENOUS BLOOD / Unknown Venipuncture / Unknown 03/13/2023 12:13 EDT 03/13/2023 12:19 EDT us Heike Valdez PA-C CHEMISTRY & BLOOD GAS ORDERAB LES Final Result Performing Organization Address [facility] de Phone Number [facility] [address] [place] [address] * (ABNORMAL) COMPREHENSIVE METABOLIC PANEL (CMP) (03/13/2023 12:13 EDT) Sodium 136 136 - 145 mmol/L 03/13/2023 12:43 [facility] Potassium 3.7 3.5 - 5.0 mmol/L 03/13/2023 12:43 [facility] Chloride 98 96 - 110 mmol/L 03/13/2023 12:43 [facility] CO2 Total 31 22 - 32 mmol/L 03/13/2023 12:43 [facility] Glucose 107(H) 70 - 100 mg/dL 03/13/2023 12:43 [facility] BUN 14 10 - 26 mg/dL 03/13/2023 12:43 [facility] Creatinine 1.35(H) 0.52 - 1.04 mg/dL 03/13/2023 12:43 [facility] eGFR 44(L) >60 mL/min/1.7 3m2 03/13/2023 12:43 [facility] Total Protein 6.9 6.3 - 8.2 g/dL 03/13/2023 12:43 [facility] Albumin 4.0 3.4 - 4.9 g/dL 03/13/2023 12:43 [facility] Alkaline Phosphatase 107 38 - 126 U/L 03/13/2023 12:43 [facility] AST 37 15 - 46 U/L 03/13/2023 12:43 [facility] ALT 31 <35 U/L 03/13/2023 12:43 [facility] Bilirubin, Total 1.2 <1.4 mg/dL 03/13/20 12:43 [facility] Calcium 8.6 8.5 - 10.5 mg/dL 03/13/2023 12:43 [facility] Albumin/Globulin Ratio 1.4 1.0 - 2.5 03/13/2023 12:43 [facility] Anion Gap 7 5 - 14 03/13/2023 12:43 [facility] Blood VENOUS BLOOD / Unknown Venipuncture / Unknown 03/13/2023 12:13 EDT 03/13/2023 12:19 EDT us Heike Valdez PA-C CHEMISTRY & BLOOD GAS ORDERAB LES Final Result [facility] [address] [place] [address] * (ABNORMAL) COMPLETE BLOOD COUNT AND DIFFERENTIAL (03/13/2023 12:13 EDT) WBC 3.70(L) 4.00 - 12.40 K/cmm 03/13/2023 12:[address] [facility] RBC 3.97 3.86 - 5.04 M/cmm 03/13/2023 12:31 [facility] Hemoglobin 12.1 11.6 - 15.2 gm/dL 03/13/2023 12:31 [facility] HCT 35.5 34.9 - 44.4 % 03/13/2023 12:31 [facility] MCV 89 81 - 98 fl 03/13/2023 12:31 [facility] MCH 30.5 26.7 - 33.3 pg 03/13/2023 12:31 [facility] MCHC 34.1 32.1 - 35.9 gm/dL 03/13/2023 12:31 [facility] RDW-CV 14.1 <14.7 % 03/13/2023 12:31 [facility] RDW-SD 46.2 <50.4 fl 03/13/2023 12:31 [facility] PLT 87(L) 141 - 377 K/cmm 03/13/2023 12:31 [facility] MPV 9.9 9.5 - 12.7 fl 03/13/2023 12:31 [facility] % Neutrophils 78.9 % 03/13/2023 12:31 [facility] % Lymphocytes 8.6 % 03/13/2023 12:31 [facility] % Monocytes 10.3 % 03/13/2023 12:31 [facility] % Eosinophils 1.4 % 03/13/2023 12:31 [facility] % Basophils 0.5 % 03/13/2023 12:31 [facility] % Immature Grans 0.3 % 03/13/20 12:31 [facility] Absolute Neutrophils 2.92 2.20 - 8.85 K/cmm 03/13/2023 12:31 [facility] Absolute Lymphocytes 0.32(L) 1.09 - 3.30 K/cmm 03/13/2023 12:31 [facility] Absolute Monocytes 0.38 0.10 - 0.80 K/cmm 03/13/2023 12:31 [facility] Absolute Eosinophils 0.05 0.03 - 0.61 K/cmm 03/13/2023 12:31 [facility] ABS Basophils 0.02 0.01 - 0.11 K/cmm 03/13/2023 12:[address] [facility] Absolute Immature Grans 0.01 0.00 - 0.06 K/cmm 03/13/2023 12:[address] [facility] Type of Differential: Auto 03/13/2023 12:[address] [facility] Blood VENOUS BLOOD / Unknown Venipuncture / Unknown 03/13/2023 12:13 EDT 03/13/2023 12:19 EDT us Heike Valdez PA-C PACKAGES & DNA PROBE ORDERABL ES Final Result [facility] [address] [place] [address] documented in this encounter Visit Diagnoses Diagnosis Gross hematuria- Primary documented in this encounter Administered Medications Inactive Administered Medications - up to 3 most recent administrations Medication Order MAR Action Action Date Dose Rate Site HYDROmorphone (PF) (DILAUDID) 0.5 mg/0.5 mL syringe 1 mg 1 mg, intravenous, NOW X1, 1 dose, On 03/13/23 at 1200, STAT Given 03/13/2023 12:15 EDT 1 mg ondansetron (PF) (ZOFRAN) injection 4 mg 4 mg, intravenous, NOW X1, 1 dose, On 03/13/23 at 1200, STAT Given 03/13/2023 12:14 EDT 4 mg documented in this encounter Active and Recently Administered Medications Times are shown in EDT. Scheduled Medication Order 03/11/2023 03/12/2023 03/13/2023 HYDROmorphone (PF) (DILAUDID) 0.5 mg/0.5 mL syringe 1 mg (COMPLETED) 1 mg, intravenous, NOW X1, 1 dose, On 03/13/23 at 1200, STAT 1215 (Given - Provid er: Ioana Camara RN) ondansetron (PF) (ZOFRAN) injection 4 mg (COMPLETED) 4 mg, intravenous, NOW X1, 1 dose, On 03/13/23 at 1200, STAT 1214 (Given - Provid er: Ioana Camara RN) oxyCODONE (ROXICODONE) immediate release tablet 5 mg 5 mg, oral, NOW X1, 1 dose, On 03/13/23 at 1430, STAT 1732 (Not Given - Pr ovider: Ioana Camara RN - Reason: Change in condition - Comment: drowsy. aware) documented in this encounter Orders Medications Ordered That Luc ht Not Have Been Administered Count Last Ordered Date First Ordered Date oxyCODONE (ROXICODONE) immed iate release tablet 5 mg 1 03/13/2023 documented in this encounter Care Teams Sales Representative Uniforms Relationship Specialty Start Date End Date Emigdio Veronica MD [address] [place] [phone] PCP - General Internal Medicine - Primary Care 05/22/20 02/21/24 Izabella Snowden, DARNELL 1 [facility], 3rd [place] [address] Turnaround Engineer 02/21/23 05/03/24 documented as of this encounter
--- OUTSIDE RECORDS SUMMARY | 2024-11-22 16:57 | XMS_ITS | Encounter Summary ---
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 file Not on [...] Office Visit [facility] Ophthalmology - [address] [address] Gagandeep Rome MD [address] [facility], [address] [place] [phone] 02/11/2025 13:30 EDT Telemedicine [facility] Hematology & Oncology - [facility] [address] [place], [place] [phone] Dana Padilla MD 111 [facility], [facility] 2 [place] [address] documented as of this encounter Visit Diagnoses Not on filedocumented in this encounter Care Teams Supervisor Composing Room Relationship Specialty Start Date End Date Emigdio Veronica MD [address] [place] [phone] PCP - General Internal Medicine - Primary Care 05/22/20 02/21/24 documented as of this encounter
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
--- OUTSIDE RECORDS SUMMARY | 2024-11-22 16:57 | XMS_ITS | Encounter Summary ---
Author Organization [facility] Address [address] [place] [address] Care Team Providers Care Registration Rep Name Role Phone Emigdio Veronica MD Primary Care Provider + Izabella Snowden [facility] [phone] Encounter Details Date Type Department Care Team (Late st Contact Info) Description 02/28/2023 Community Health Team [facility] Health [address], [address] [place] [address] [facility], Health Assistance Program [address] [place] [address] Social History Tobacco Use Types Packs/Day Years [...] slept in a correction (including now)? 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 [employer] Date: 02/28/23 Referred by: Scottie Campuzano PA-C PCP: Emigdio Veronica Encounter type: Phone Reason for Referral: Housing Notes: ?? [employer] ([facility]) called patient a second time and left a voicemail to call [facility] back at [phone]. Plan / Action Items: ?? [facility] will call patient again within 5 to 7 days. Lucie Yao 02/28/23 11:24 documented in this encounter Plan of Treatment Upcoming Encounters Date Type Department Care Team (Late st Contact Info) Description 01/04/2025 13:00 EST Office Visit [facility] Ophthalmology [address] [phone] Gagandeep Rome MD [address] [place] [address], [facility] 5 [place] [address] 02/11/2025 13:30 EDT Telemedicine [facility] Hematology & Oncology [address] [phone] Dana Padilla MD [address] [place] [address], [facility] 2 [place] [phone] documented as of this encounter Visit Diagnoses Not on filedocumented in this encounter Care Teams Registration Rep Relationship Specialty Start Date End Date Emigdio Veronica MD [address] [place] [phone] PCP - General Internal Medicine - Primary Care 05/22/20 02/21/24 Izabella Snowden, [facility] 1 [facility], 3rd [place] [address] Clothespin Drier Operator 02/21/23 05/03/24 documented as of this encounter
--- OUTSIDE RECORDS SUMMARY | 2024-11-22 16:57 | XMS_ITS | Encounter Summary ---
Author Organization [facility] Address [address] [place] [address] Care Team Providers Care Treatment Counselor Name Role Phone Emigdio Veronica MD Primary Care Provider + Izabella Sonwden [facility] Unavailable [phone] Reason for Visit * Reason Comments Shortness of Breath BIBEMS from home for worsening SOB throughout the night, hx COPD, similar to other exac, worse with exertion, wears O2 at night, no respiratory distress on arrival, VSS on room air. Encounter Details Date Type Department Care Team (Late st Contact Info) Description 02/23/2023 4:34 EDT - 02/23/2023 7:57 EDT Emergency [facility] Emergency Department - [address] [id number] Jennifer Kam MD MPH [address] [place] [phone] Laurent Solorzano MD [address] [place] [phone] COPD exacerbation (HCC-CMS) (Primary Dx); Acute on chronic congestive heart failure, unspecified heart failure type (HCC-CMS) Discharge Disposition: Home or Self Care [...] Date Record ed How often does anyone, sma meng family, hit, punch or physically hurt [...] 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 No / Unsure 02/14/2023 6:41 EDT documented as of this encounter Last Filed Vital Signs Vital Sign Reading Time Taken Comments Blood Pressure 136/94 02/23/2023722 EDT Pulse 84 02/23/2023437 EDT Temperature 37.1 ??C (98.7 ??F) 02/23/2023437 EDT Respiratory Rate 20 02/23/2023722 EDT Oxygen Saturation 97% 02/23/2023722 EDT Inhaled Oxygen Concentration - - Weight 104.3 kg (230 lb) 02/23/2023437 EDT Height 162.6 cm (5' 4) 02/23/2023437 EDT Body Mass Index 39.48 02/23/2023437 EDT documented in this encounter Functional Status [...] this encounter Discharge Instructions * Discharge Instructions* Hi Gaspar MD - 02/23/2023 6:59 EDT Based on our evaluation, we don't believe you need more testing or treatment in the hospital at this time. We are starting you on 5 days of prednisone and azithromycin. You should also take an extra tablet of Lasix for the next 2 days. Be sure to follow-up with primary care physician as soon as possible. If you experience severely worsening shortness of breath, please return to the emergency department. documented in this encounter Medications at Time of Discharge diclofenac sodium gel Apply 2 g topically 2 times daily as needed for Pain (Knee pain). 50 g 1 06/25/2022 INCRUSE ELLIPTA 62.5 mcg/actuationIndi cations:Chronic obstructive pulmonary disease, unspecified COPD type ([facility]) INHALE 1 PUFF BY MOUTH DIRECTED DAILY [...] needed for Wheezing. 1 Inhaler 04/13/2021 3 azithromycin (ZITHROMAX) 250 mg tablet Take 1 Tablet by mouth daily for 4 days. 4 Tablet 02/23/2023 3 chlorzoxazone (PARAFON FORTE) 500 mg tablet [...] mouth 3 times daily. 270 Capsule 1 10/04/2022 3 ketotifen (ZADITOR) 0.025 % (0.035 %) [...] 06/25/2022 3 ondansetron (ZOFRAN) 4 mg tablet TAKE 1 TABLET BY MOUTH EVERY 8 HOURS NEEDED FOR NAUSEA 30 Tablet 1 01/26/2023 3 oxyCODONE (ROXICODONE) 5 mg immediate release [...] once procedure scheduled. 4000 mL 12/13/2022 3 predniSONE (DELTASONE) 20 mg tablet Take 2 Tablets by mouth daily for 5 days. 10 Tablet 02/23/2023 3 ramelteon (ROZEREM) 8 mg tablet Take 1 at bedtime if needed for sleep. 15 Tablet 02/17/2023 3 spironolactone (ALDACTONE) 100 mg tablet TAKE 1 TABLET BY MOUTH EVERY DAY 90 Tablet 1 11/19/2022 3 sucralfate (CARAFATE) 1 gram tablet TAKE 1 TABLET BY MOUTH FOUR TIMES A DAY 120 Tablet 3 05/10/2022 4 traZODone (DESYREL) 100 mg tablet Take 2 Tablets by mouth at bedtime. 180 Tablet 1 01/05/2023 3 venlafaxine (EFFEXOR-XR) 75 mg XR capsule Take 1 Capsule by mouth daily. 30 Capsule 2 12/23/2022 3 documented as of this encounter Ordered Prescriptions Prescription Sig Dispense Quantity Refills Last Filled Start Date End Date azithromycin (ZITHROMAX) 250 mg tablet Take 1 Tablet by mouth daily for 4 days. 4 Tablet 02/23/2023 3 predniSONE (DELTASONE) 20 mg tablet Take 2 Tablets by mouth daily for 5 days. 10 Tablet 02/23/2023 3 documented in this encounter Discharge Disposition Disposition Code Departure Means Destination Home or Self Usp documented in this encounter ED Notes * Mercedes Womack RN - 02/23/2023 0751 EDT Pt d/c home via ride from friend, per patient she intermittently wears O2 at home PRN and states she doesn't need O2 for the ride home. Pt verbalized understanding and denied any questions regarding discharge instructions. IV removed, site remains clean dry and intact. Pt off unit in stable condition with steady gait. * Mercedes Womack RN - 02/23/2023 0723 EDT Report received from KENN Juan at 0700. Pt completed ambulation trial w/ 3L O2 via [place] which she reports is her home level. Maintained sats above 96%. Steady gait. Denied dizziness and SOB. Endorsed back pain which she reports is chronic. MD Gaspar notified, plan for discharge home. * Yessica Mcfarlane RN - 02/23/2023 0616 EDT Pt transferred independently to [facility], no weakness or difficulties, able to provide hygiene independently. * Hi Gaspar MD - 02/23/2023 0443 EDT Emergency Department Visit This note was created and authored by Hi Gaspar MD working under the supervision of Jennifer Kam MD MPH. This documentation is recorded by Katherin Cortez acting as Scribe under the direction and presence of Hi Gaspar MD and Jennifer Kam MD MPH. Hi Gaspar MD and Jennifer Kam MD MPH: We personally performed the services recorded by the scribe in our presence. We confirm the scribe's documentation has been reviewed by us to accurately and completely record our work, treatment, procedures, and medical decision making. Medical Decision Making 60-year-old female with COPD on 3 L, pulmonary edema on torsemide presenting for dyspnea. Presentation consistent with mixed COPD exacerbation and pulmonary edema. Improved with bronchodilators, prednisone, azithromycin, furosemide. Discharged. Relevant Data as of 02/23/23 0752 TueFeb 23, 2023 0451 EKG: Rate 76, sinus rhythm, sinus arrhythmia, normal axis, normal intervals, no ischemic ST-T changes [[place]] 0502 62-year-old female with history of COPD on 3 L, NAFLD cirrhosis presenting for shortness of breath. Viral URI symptoms for 2 weeks. Worsening shortness of breath over the past few days. Increase sputum production. Tonight, significant difficulty breathing. Activated EMS. Denies chest pain, fever, recent sick contacts. Mild nausea. [[place]] 0503 On initial evaluation, moderate respiratory distress. Mildly tachypneic, otherwise normal vitals. On exam, uncomfortable. Tachypneic. Diffuse bilateral expiratory wheezing. Fair air movement bilaterally. [[place]] 0503 Given 3 stacked DuoNebs, prednisone 40 mg, azithromycin 500 mg, ondansetron. [[place]] 0521 On my read and independent interpretation, interstitial pulmonary edema on chest x-ray. No evidence of pneumonia. [[place]] 0605 Negative troponin. Creatinine 1.06, similar to baseline. WBC 3.79, chronically low. [[place]] 0642 Respiratory status much improved after nebulizers and initial diuresis. No audible wheezing. Patient complaining of phonic nausea and back pain. Given additional ondansetron. [[place]] 0750 On ambulation trial, able to ambulate at her baseline without dyspnea worse than her baseline.Maintaining her saturations on her home 3 L. [[place]] 0750 Given improvement in ability to maintain her exertional level without issue, appropriate for discharge. Will prescribe course of prednisone and azithromycin and also counseled patient to take additional 20 mg furosemide every day for the next 2 days. She will follow-up with her PCP. [[place]] 0751 Overall picture consistent with COPD exacerbation and pulmonary edema. No evidence of pneumonia or other acute pulmonary pathology. Low suspicion for ACS given negative troponin and nonischemic EKG. [[place]] Relevant Data User Index [[place]] Hi Gaspar MD An EKG was obtained and independently interpreted. Laboratory data was reviewed. Medical Decision Making Acute on chronic congestive heart failure, unspecified heart failure type (HCC- CMS) ([facility]): acute illness or injury COPD exacerbation (HCC-CMS): acute illness or injury Amount and/or Complexity of Data Reviewed Labs: ordered. Radiology: ordered. Risk OTC drugs. Prescription drug management. Final diagnoses: COPD exacerbation (HCC-CMS) Acute on chronic congestive heart failure, unspecified heart failure type (HCC- CMS) ([facility]) Disposition: Discharged Chief complaint: Shortness of breath FINA Boothe is a 62 y.o. female with a history of QUIROZ, COPD, HUEY, asthma, GERD, decompensated liver cirrhosis, thrombocytopenia, portal vein thrombosis, frequent falls, and chronic pain syndromewho presents to the ED via EMS from home for shortness of breath. Patient reports that she first started feeling short of breath when she went to bed and then kept hyperventilating. She endorses coughing in the setting of a couple weeks of cold symptoms with some rhinorrhea. Patient endorses some nausea, but denies a sore throat, chest pain, or recent fevers. She denies sick contacts. Patient says her presenting symptoms feel like prior COPD exacerbations. History was provided by: Patient Records reviewed include: Prior medical records Patient's pertinent PMH, FH, SH were reviewed and edited as necessary. Nursing notes reviewed. A medical screening exam was performed. Physical Exam BP (!) 136/94 (BP Cuff Location: Right arm, BP Patient Position: Sitting) Pulse 84 Temp 37.1 ??C (98.7 ??F) (Oral) Resp 20 Ht 162.6 cm (64) Wt (!) 104.3 kg (230 lb) SpO2 97% BMI 39.48 kg/m?? Physical Exam Patient is uncomfortable. Tachypneic. Diffuse bilateral expiratory wheezing. Fair air movement bilaterally Procedures Procedures Cosigned by Jennifer Kam MD MPH at 02/25/2023 15:24 EDT Associated attestation - Jennifer Kam MD MPH - 02/25/2023 1524 EDT I, Jennifer Kam MD MPH, performed a history and exam of this patient and discussed the case with the resident. I have reviewed and edited this note, and the documentation is consistent with my findings, assessment and plan. I fully participated in the medical decision making. documented in this encounter Plan of Treatment Upcoming Encounters Date Type Department Care Team (Late st Contact Info) Description 01/04/2025 13:00 EST Office Visit [facility] Ophthalmology - [address] [phone] Gagandeep Rome MD [address] [facility], [address] [place] [phone] 02/11/2025 13:30 EDT Telemedicine [facility] Hematology & Oncology - [facility] [address] [place] [address] Dana Padilla MD [address] [facility], [address] [place] [phone] documented as of this encounter Procedures Procedure Name Priority Date/Time Associated Diagnosis Comments ECG REPORT - SCANNED 02/25/2023 16:37 EDT ZZCOVID-19 TEST [facility] PCR STAT 02/23/2023 5:17 EDT COVID-19 TESTING STAT 02/23/2023 5:17 EDT ZZHN INFLUENZA A AND B, RSV PCR STAT 02/23/2023 5:17 EDT XR CHEST PORTABLE 1 VIEW STAT 02/23/2023 5:10 EDT HOLD BLUE TOP STAT 02/23/2023 4:47 EDT TROPONIN I STAT 02/23/2023 4:47 EDT COMPLETE BLOOD COUNT AND DIFFERENTIAL STAT 02/23/2023 4:47 EDT MAGNESIUM STAT 02/23/2023 4:47 EDT BASIC METABOLIC PANEL (BMP) STAT 02/23/2023 4:47 EDT EKG 12-LEAD STAT 02/23/2023 4:40 EDT documented in this encounter Results * ECG REPORT - SCANNED (02/25/2023 16:37 EDT) 02/25/2023 16:3 7 EDT us Scan 2 Lithographed Plate Inspector PROCEDURE/MINOR SURGICAL OR DERABLES Final Result * COVID-19 TEST [facility] PCR (02/23/2023 5:17 EDT) Swab ENTIRE NASOPHARYNX / Unknown Swab / Unknown 02/23/2023 5:17 EDT 02/23/2023 5:22 EDT Hi Gaspar MD MICROBIOLOGY - GENERAL ORDERABLE S Final Result Performing Organization Address [facility] de Phone Number [facility] [address] [place] [address] * COVID-19 TESTING (02/23/2023 5:17 EDT) COVID-19 rt-PCR Result Negative Negative 02/23/2023 7:15 EDT [facility] Comment: This test has [...] history, and epidemiological information. Performed on the [employer] GeneXpert Instrument Performing Lab GeneXpert [facility] 02/23/2023 7:15 EDT [facility] Swab ENTIRE NASOPHARYNX / Unknown Swab / Unknown 02/23/2023 5:17 EDT 02/23/2023 5:22 EDT Hi Gaspar MD MICROBIOLOGY - GENERAL ORDERABLE S Final Result Performing Organization Address [facility] Co de Phone Number [facility] [address] [place] [address] * INFLUENZA A AND B,RSV PCR (02/23/2023 5:17 EDT) FLU A RNA Result (FLARES) Negative Negative 02/23/2023 7:14 EDT [facility] FLU B RNA Result (FLBRES) Negative Negative 02/23/2023 7:14 EDT [facility] RSV RNA Result (RSVRES) Negative Negative 02/23/2023 7:14 EDT [facility] Swab ENTIRE NASOPHARYNX / Unknown Swab / Unknown 02/23/2023 5:17 EDT 02/23/2023 5:22 EDT us Hi Gaspar MD MICROBIOLOGY - GENERAL ORDERABLE S Final Result [facility] [address] [place] [address] * XR CHEST PORTABLE 1 VIEW (02/23/2023 5:10 EDT) Anatomical Region Laterality Modality Computed Radiogr aphy 02/23/2023 9:11 EDT Impressions 02/23/2023 9:11 EDT * ??Interstitial pulmonary edema. * ??Decreased but persistent patchy peripheral opacities compared to November 28, 2022. These findings could represent scarring. Superimposed pneumonia is not excluded. RECOMMENDATIONS: A short-term follow-up 2-view chest radiograph is recommended in 4-6 weeks to document resolution. There is a difference between this interpretation and that provided by the preliminary resident report which requires non-urgent notification. The findings were communicated to Hi Quinteros by [employer] chat on 02/23/2023 at 9:06 AM. Imaging findings were also communicated to Emigdio Veronica (PCP) by [employer] Staff Message on 02/23/2023 at 9:09 AM. I have personally reviewed the images and the above interpretation and agree with the findings. Narrative 02/23/2023 9:11 EDT XR CHEST PORTABLE 1 VIEW ??02/23/2023 5:05 AM CLINICAL HISTORY/COMMENTS: sob, copd, cough COMPARISON: Chest radiograph 06/16/2023. TECHNIQUE: Single portable AP view of the chest. FINDINGS: Lines/tubes: ??None Soft tissues, bones and extrathoracic findings: No significant abnormalities. Cardiac and mediastinal contours: Stable appearance of the cardiomediastinal silhouette. Lungs: The pulmonary vasculature is indistinct. There is interstitial thickening and peribronchial cuffing. Patchy peripheral opacities visualized December 17, 2022 have decreased. Pleura: No visible pleural abnormalities. Procedure Note Alverto Miranda MD - 02/23/2023 XR CHEST PORTABLE 1 VIEW 02/23/2023 5:05 AM CLINICAL HISTORY/COMMENTS: sob, copd, cough COMPARISON: Chest radiograph 06/16/2023. TECHNIQUE: Single portable AP view of the chest. FINDINGS: Lines/tubes: None Soft tissues, bones and extrathoracic findings: No significantabnormalities. Cardiac and mediastinal contours: Stable appearance of thecardiomediastinal silhouette. Lungs: The pulmonary vasculature is indistinct. There is interstitialthickening and peribronchial cuffing. Patchy peripheral opacitiesvisualized December 17, 2022 have decreased. Pleura: No visible pleural abnormalities. IMPRESSION * Interstitial pulmonary edema. * Decreased but persistent patchy peripheral opacities compared toJan2022. These findings could represent scarring. Superimposedpneumonia is not excluded. RECOMMENDATIONS: A short-term follow-up 2-view chest radiograph is recommended in 4-6 weeksto document resolution. There is a difference between this interpretation and that provided by thepreliminary resident report which requires non-urgent notification. Thefindings were communicated to Hi Quinteros by [employer] on 02/23/2023 at9:06 AM. Imaging findings were also communicated to Emigdio Veronica (PCP) by [employer] Message on 02/23/2023 at 9:09 AM. I have personally reviewed the images and the above interpretation andagree with the findings. us Hi Gaspar MD IMG DIAGNOSTIC IMAGING ORDERABLE S Final Result * HOLD BLUE TOP (02/23/2023 4:47 EDT) Hold Hold 02/23/2023 6:01 EDT [facility] Blood VENOUS BLOOD / Unknown Venipuncture / Unknown 02/23/2023 4:47 EDT 02/23/2023 4:52 EDT us Jennifer Kam MD MPH LAB INFO SERVICE AND DE [place] PPORT & PHONE RESULT Final Result Performing Organization Address [facility]/ZIP Co de Phone Number [facility] [address] [place] [address] * MAGNESIUM (02/23/2023 4:47 EDT) [facility] Magnesium 1.8 1.7 - 2.8 mg/dL 02/23/2023 5:09 EDT [facility] Blood VENOUS BLOOD / Unknown Venipuncture / Unknown 02/23/2023 4:47 EDT 02/23/2023 4:52 EDT us Jennifer Kam MD MPH CHEMISTRY & BLOOD GAS O RDERABLES Final Result Performing Organization Address [facility] Co de Phone Number [facility] [address] [place] [phone] * TROPONIN I (02/23/2023 4:47 EDT) [facility] Troponin I (ng/mL) <0.034 <0.034 ng/mL 02/23/2023 5:24 EDT [facility] Blood VENOUS BLOOD / Unknown Venipuncture / Unknown 02/23/2023 4:47 EDT 02/23/2023 4:52 EDT Narrative [facility] - 02/23/2023 5:24 EDT The results of this assay can be falsely lowered due to the consumption of Biotin. us Jennifer Kam MD MPH CHEMISTRY & BLOOD GAS O RDERABLES Final Result [facility] [address] [place] [address] * (ABNORMAL) BASIC METABOLIC PANEL (BMP) (02/23/2023 4:47 EDT) [facility] Sodium 134(L) 136 - 145 mmol/L 02/23/2023 5:09 EDT [facility] Potassium 4.3 3.5 - 5.0 mmol/L 02/23/2023 5:09 [facility] Chloride 104 96 - 110 mmol/L 02/23/2023 5:09 [facility] CO2 Total 24 22 - 32 mmol/L 02/23/2023 5:09 [facility] Anion Gap 6 5 - 14 02/23/2023 5:09 [facility] Glucose 101(H) 70 - 100 mg/dL 02/23/2023 5:09 [facility] Calcium 8.5 8.5 - 10.5 mg/dL 02/23/2023 5:09 [facility] BUN 17 10 - 26 mg/dL 02/23/2023 5:09 [facility] Creatinine 1.06(H) 0.52 - 1.04 mg/dL 02/23/2023 5:09 [facility] eGFR 59(L) >60 mL/min/1.73 m2 02/23/2023 5:09 [facility] Blood VENOUS BLOOD / Unknown Venipuncture / Unknown 02/23/2023 4:47 EDT 02/23/2023 4:52 EDT us Jennifer Kam MD MPH CHEMISTRY & BLOOD GAS O RDERABLES Final Result [facility] [address] [place] [address] * (ABNORMAL) COMPLETE BLOOD COUNT AND DIFFERENTIAL (02/23/2023 4:47 EDT) WBC 3.79(L) 4.00 - 12.40 K/cmm 02/23/2023 4:59 [facility] RBC 3.84(L) 3.86 - 5.04 M/cmm 02/23/2023 4:59 [facility] Hemoglobin 11.8 11.6 - 15.2 gm/dL 02/23/2023 4:59 [facility] HCT 34.8(L) 34.9 - 44.4 % 02/23/2023 4:59 [facility] MCV 91 81 - 98 fl 02/23/2023 4:59 [facility] MCH 30.7 26.7 - 33.3 pg 02/23/2023 4:59 [facility] MCHC 33.9 32.1 - 35.9 gm/dL 02/23/2023 4:59 [facility] RDW-CV 14.8(H) <14.7 % 02/23/2023 4:59 [facility] RDW-SD 49.3 <50.4 fl 02/23/2023 4:59 [facility] PLT 85(L) 141 - 377 K/cmm 02/23/2023 4:59 [facility] MPV 9.6 9.5 - 12.7 fl 02/23/2023 4:59 [facility] % Neutrophils 73.3 % 02/23/2023 4:59 [facility] % Lymphocytes 11.9 % 02/23/2023 4:59 [facility] % Monocytes 11.9 % 02/23/2023 4:59 [facility] % Eosinophils 2.1 % 02/23/2023 4:59 [facility] % Basophils 0.5 % 02/23/2023 4:59 [facility] % Immature Grans 0.3 % 02/24/20 4:59 [facility] Absolute Neutrophils 2.78 2.20 - 8.85 K/cmm 02/23/2023 4:59 [facility] Absolute Lymphocytes 0.45(L) 1.09 - 3.30 K/cmm 02/23/2023 4:59 [facility] Absolute Monocytes 0.45 0.10 - 0.80 K/cmm 02/23/2023 4:59 [facility] Absolute Eosinophils 0.08 0.03 - 0.61 K/cmm 02/23/2023 4:59 [facility] ABS Basophils 0.02 0.01 - 0.11 K/cmm 02/23/2023 4:59 EDT [facility] Absolute Immature Grans 0.01 0.00 - 0.06 K/cmm 02/23/2023 4:59 EDT [facility] Type of Differential: Auto 02/23/2023 4:59 EDT [facility] Blood VENOUS BLOOD / Unknown Venipuncture / Unknown 02/23/2023 4:47 EDT 02/23/2023 4:52 EDT us Jennifer Kam MD MPH PACKAGES & DNA PROBE OR DERABLES Final Result [facility] [address] [place] [address] * EKG 12-LEAD (02/23/2023 4:40 EDT) 02/23/2023 4:40 EDT Narrative [facility] EKG - 02/24/2023 12:13 EDT ?The Emergency ? Test Date: ?2023-02-23 Pat Name: ? PHYLISS BOOTHE ?Department: ?? ED ? Room: ? AC08 Gender: ? Female ? [employer] P[employer] Representative: ?? : ?1960 ? Requested By: GENEVIEVE ERIC Order Number: [id number] ? Reading MD: ?? AMINATA GARAY MD ? Measurements Intervals ?Griffin ? Rate: ? 76 ? P: ?51 WV: ? 152 ?QRS: ?58 QRSD: ? 88 ? T: ?58 QT: ? 363 ? QTc: ?408 ? Interpretive Statements SINUS RHYTHM WITH SINUS ARRHYTHMIA Automated Interpretation. ??Provider Interpretation to follow. Compared to ECG 02/14/2023 06:40:36 No significant changes I reviewed the tracing and have either agreed or edited the findings in this report. Electronically Signed On 02-24-2023 12:13:46 EDT by AMINATA GARAY MD. Procedure Note Aminata Garay MD - 02/24/2023 The Emergency Test Date: 2023-02-23 Pat Name: TARA BOOTHE Department: ED Room: [facility] Gender: Female [employer] P[employer] Control Representative: : 1960 Requested By: GENEVIEVE ERIC Order Number: [id number] Reading MD: AMINATA GARAY MD Measurements Intervals Griffin Rate: 76 P: 51 WV: 152 QRS: 58 QRSD: 88 T: 58 QT: 363 QTc: 408 Interpretive Statements SINUS RHYTHM WITH SINUS ARRHYTHMIA Automated Interpretation. Provider Interpretation to follow. Compared to ECG 02/14/2023 06:40:36 No significant changes I reviewed the tracing and have either agreed or edited the findings inthis report. Electronically Signed On 02-24-2023 12:13:46 EDT by AMINATA CEE. us Jennifer Kam MD MPH CARDIAC ECG ORDERABLES Final Result [facility] EKG documented in this encounter Visit Diagnoses Diagnosis COPD exacerbation (HCC-CMS)- Primary Obstructive chronic bronchitis with exacerbation Acute on chronic congestive heart failure, unspecified heart failure type (HCC-CMS) documented in this encounter Administered Medications Inactive Administered Medications - up to 3 most recent administrations Medication Order MAR Action Action Date Dose Rate Site azithromycin (ZITHROMAX) tablet 500 mg 500 mg, oral, NOW X1, 1 dose, On Tue02/23/23 at 0515, STAT Given 02/23/2023 5:13 EDT 500 mg furosemide (LASIX) injection 20 mg 20 mg, intravenous, NOW X1, 1 dose, On Tue02/23/23 at 0615, STAT Given 02/23/2023 6:10 EDT 20 mg furosemide (LASIX) injection 60 mg 60 mg, intravenous, NOW X1, 1 dose, On Tue02/23/23 at 0530, STAT Given 02/23/2023 5:27 EDT 60 mg HYDROmorphone (PF) (DILAUDID) 0.5 mg/0.5 mL syringe 0.25 mg 0.25 mg, intravenous, NOW X1, 1 dose, On Tue02/23/23 at 0700, STAT Given 02/23/2023 6:52 EDT 0.25 mg ipratropium-albuteroL (DUONEB) 0.5 mg-3 mg(2.5 mg base)/3 mL nebulizer solution 9 mL 9 mL, nebulization, NOW X1, 1 dose, On Tue02/23/23 at 0515, STAT Given 02/23/2023 5:05 EDT 9 mL ipratropium-albuteroL (DUONEB) 0.5 mg-3 mg(2.5 mg base)/3 mL nebulizer solution 1 dose, Starting on Tue02/23/23 at 0440, Until Tue02/23/23 at 0505 ondansetron (PF) (ZOFRAN) injection 4 mg 4 mg, intravenous, NOW X1, 1 dose, On Tue02/23/23 at 0515, STAT Given 02/23/2023 5:12 EDT 4 mg ondansetron (PF) (ZOFRAN) injection 4 mg 4 mg, intravenous, NOW X1, 1 dose, On Tue02/23/23 at 0645, STAT Given 02/23/2023 6:52 EDT 4 mg predniSONE (DELTASONE) tablet 40 mg 40 mg, oral, NOW X1, 1 dose, On Tue02/23/23 at 0515, STAT Given 02/23/2023 5:13 EDT 40 mg documented in this encounter Active and Recently Administered Medications Times are shown in EDT. Scheduled Medication Order 02/21/2023 02/22/2023 02/23/2023 acetaminophen (TYLENOL) tablet 650 mg 650 mg, oral, NOW X1, 1 dose, On Tue02/23/23 at 0700, STAT 0652 (Not Given - Pr ovider: Yessica Mcfarlane RN - Reason: Patient/family refused - Comment: pt states bit gatherer told her she was not to take tylenol) azithromycin (ZITHROMAX) tablet 500 mg (COMPLETED) 500 mg, oral, NOW X1, 1 dose, On Tue02/23/23 at 0515, STAT 0513 (Given - Provid er: Gary Alas RN) furosemide (LASIX) injection 20 mg (COMPLETED) 20 mg, intravenous, NOW X1, 1 dose, On Tue02/23/23 at 0615, STAT 0610 (Given - Provid er: Yessica Mcfarlane RN) furosemide (LASIX) injection 60 mg (COMPLETED) 60 mg, intravenous, NOW X1, 1 dose, On Tue02/23/23 at 0530, STAT 0527 (Given - Provid er: Gary Alas RN) HYDROmorphone (PF) (DILAUDID) 0.5 mg/0.5 mL syringe 0.25 mg (COMPLETED) 0.25 mg, intravenous, NOW X1, 1 dose, On Tue02/23/23 at 0700, STAT 0652 (Given - Provid er: Yessica Mcfarlane RN) ipratropium-albuteroL (DUONEB) 0.5 mg-3 mg(2.5 mg base)/3 mL nebulizer solution 9 mL (COMPLETED) 9 mL, nebulization, NOW X1, 1 dose, On Tue02/23/23 at 0515, STAT 0505 (Given - Provid er: Yessica Mcfarlane RN) ondansetron (PF) (ZOFRAN) injection 4 mg (COMPLETED) 4 mg, intravenous, NOW X1, 1 dose, On Tue02/23/23 at 0515, STAT 0512 (Given - Provid er: Gary Alas RN) ondansetron (PF) (ZOFRAN) injection 4 mg (COMPLETED) 4 mg, intravenous, NOW X1, 1 dose, On Tue02/23/23 at 0645, STAT 0652 (Given - Provid er: Yessica Mcfarlane RN) predniSONE (DELTASONE) tablet 40 mg (COMPLETED) 40 mg, oral, NOW X1, 1 dose, On Tue02/23/23 at 0515, STAT 0513 (Given - Provid er: Gary Alas RN) documented in this encounter Orders Medications Ordered That Luc ht Not Have Been Administered Count Last Ordered Date First Ordered Date acetaminophen (TYLENOL) tablet 1,000 mg 1 0 02/23/2023 acetaminophen (TYLENOL) tablet 650 mg 1 03/2023 ketOROLAC (TORADOL) injection 15 mg 1 02/23 documented in this encounter Additional Health Concerns Infection Onset Date Last Indicated Resolved Time R/O COVID-19 02/23/2023 02/23/2023 02/23/2023 7:15 EDT documented as of this encounter Care Teams Treatment Counselor Relationship Specialty Start Date End Date Emigdio Veronica MD [address] [place] [phone] PCP - General Internal Medicine - Primary Care 05/22/20 02/21/24 Izabella Snowden, DARNELL 1 [facility], 3rd [place] [address] Subway Conductor 02/21/23 05/03/24 documented as of this encounter
--- OUTSIDE RECORDS SUMMARY | 2024-11-22 16:57 | XMS_ITS | Encounter Summary ---
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 Yes Last Refill Date: 03/12/2023 Last Visit Date with Ordering Provider: 03/15/2023 Next Non-Acute Visit Date Scheduled with Care Team: Yes. Katarina Fitzgerald 03/27/2023 12:55 documented in this encounter Plan of Treatment Upcoming Encounters Date Type Department Care Team (Late st Contact Info) Description 01/04/2025 13:00 EST Office Visit [facility] Ophthalmology - [address] [address] Gagandeep Rome MD [address] [place] [address], [address] 5 [place] [address] 02/11/2025 13:30 EDT Telemedicine [facility] Cancer Center Hematology & Oncology - [facility] [address] [place], [place] [phone] Dana Padilla MD 111 [facility], [facility], Level 2 [place] [phone] documented as of this encounter Visit Diagnoses Not on filedocumented in this encounter Discontinued Medications Medication Sig Discontinue Reason Start Date End Da te ondansetron (ZOFRAN) 4 mg tablet Take 1 Tablet by mouth every 8 hours as needed for Nausea. 03/12/2023 03/27/2023 documented as of this encounter Care Teams Manager Cardiology Relationship Specialty Start Date End Date Emigdio Veronica MD [address] [place] [phone] PCP - General Internal Medicine - Primary Care 05/22/20 02/21/24 Izabella Snowden, [facility] 1 [facility], 3rd [place] [phone] Journeyman Millwright 02/21/23 05/03/24 documented as of this encounter
--- OUTSIDE RECORDS SUMMARY | 2024-11-22 16:57 | XMS_ITS | Encounter Summary ---
Author Organization [facility] Address [address] [place] [address] Care Team Providers Care Rubber Grinder Name Role Phone Emigdio Veronica MD Primary Care Provider + Izabella Snowden PERFORATOR LOADER Unavailable [phone] Encounter Details Date Type Department Care Team (Late st Contact Info) Description 03/28/2023 Patient Outreach [facility] Adult Primary Care - [place] 2 [place] [address] Izabella Snowden LICSW 1 [facility], [address]rd [place] [address] Social History Tobacco Use Types [...] slept in a residential (including now)? 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 (5 years old or older) Answer Date of Assessment Author No 06/16/2022 0:00 Soila Arora RN * Because of a physical, mental, or emotional condition, do you have difficulty doing errands alone such as visiting a doctor's office or shopping? (15 years old or older) Answer Date of Assessment Author No 06/16/2022 0:00 Soila Arora RN documented as of this encounter Mental Status * Because of a physical, mental, or emotional condition, do you have serious difficulty concentrating, remembering, or making decisions? (5 years old or older) Answer Entry Date Author No 06/16/2022 0:00 Soila Arora RN documented in this encounter Progress Notes * Izabella Snowden, PERFORATOR LOADER - 03/28/2023 1022 EDT [facility] Care Management Follow Up Lung Splitter followed up with patient by phone for follow up on community resources. TOPIC OF CONVERSATION: ??? Reviewed assessment and plan from previous visit with patient. ??? Engaged patient in conversation related to positive behavior change, self- management, goal setting and action planning using motivational interviewing and active listening. ??? Continues to be on waiting list at [facility]-Has not heard anything from them. We completed adult intake last month-waiting list is up to 4-6 months. ??? Reminded patient to follow up with [facility] when they do call her for opening. ??? Patient has appointment with Sleep Medicine at the end of the month 04/14/23 and Follow up with Dr. Veronica on 04/22/23. ??? Patient had a recent visit with her partner in [place]. Stated that this went well and he has been very supportive. ??? Patient would like to work on Housing and SSTA. Told patient that Lucie Hdzaleshia had reached out to several times last month to get started on this but did not hear back from patient. ??? Patient reported that she had been having difficulties with her phone but would like to still engage with Associate Software Developer. ??? CM will place referral to Associate Software Developer for assistance with SSTA transportation and Subsidized housing. ??? No other issue or concerns noted at this time. Prioritized Patient Identified Goals: 1. Patient will follow up with [facility] in the next month for assistance with applying for subsidized housing options and SSTA transportation. Achievement towards goals: In progress 2. Patient will follow up with CM in one month. Achievement towards goals: Completed 3. New Goal: Patient will attend appointment with sleep medicine on 04/15/23. Plan: CM will follow-up in one month DARNELL MCCORMICK 03/28/2023 10:32 documented in this encounter Plan of Treatment Upcoming Encounters Date Type Department Care Team (Late st Contact Info) Description 01/04/2025 13:00 EST Office Visit [facility] Ophthalmology - [address] [phone] Gagandeep Rome MD [address] [place] [address] 5 [place] [phone] 02/11/2025 13:30 EDT Telemedicine [facility] Hematology & Oncology - [address] [phone] Dana Padilla MD [address] [place] [phone], [facility] 2 [place] [address] documented as of this encounter Visit Diagnoses Not on filedocumented in this encounter Care Teams Rubber Grinder Relationship Specialty Start Date End Date Emigdio Veronica MD [address] [place] [phone] PCP - General Internal Medicine - Primary Care 05/22/20 02/21/24 Izabella Snowden LICSW 1 [facility], [address]rd [place] [phone] Lung Splitter 02/21/23 05/03/24 documented as of this encounter
--- OUTSIDE RECORDS SUMMARY | 2024-11-22 16:57 | XMS_ITS | Encounter Summary ---
Author Organization [facility] Address [address] [place] [address] Care Team Providers Care Powder Worker Tnt Name Role Phone Emigdio Veronica MD Primary Care Provider + Izabella Snowden [facility] Unavailable [phone] Reason for Visit * Reason Comments Flank Pain Pt states that for 2 -3 has had nausea, low-grade fevers, and left flank pain that radiates to right flank. Also, blood-streaked urine. Also, states that feels a lump just below the skin LLQ. Encounter Details Date Type Department Care Team (Latest Contact Info) Description 03/13/2023 10:13 EDT - 03/13/2023 10:35 EDT Hospital Encounter 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 No / Unsure 02/14/2023 6:41 EDT documented as of this encounter Last Filed Vital Signs Vital Sign Reading Time Taken Comments Blood Pressure 105/55 03/13/2023 1022 EDT Pulse 92 03/13/2023 1022 EDT Temperature 36.9 ??C (98.4 ??F) 03/13/2023 1022 EDT Respiratory Rate 18 03/13/2023 1022 EDT Oxygen Saturation 95% 03/13/2023 1022 EDT Inhaled Oxygen Concentration - - Weight [...] Soila Murphy RN documented in this encounter Medications at [...] Disposition Code Departure Means Destination Comment s ED Dismiss - Diverted Elsewhere Ambulance from triage per pt request was dropped here and having acute pain has had renal stone complications in the past. Report to radio room/ems documented in this encounter Plan of Treatment Upcoming Encounters Date Type Department Care Team (Late st Contact Info) Description 01/04/2025 13:00 EST Office Visit [facility] Ophthalmology - [address] [phone] Gagandeep Rome MD 111 [facility], Level 5 [place] [phone] 02/11/2025 13:30 EDT Telemedicine [facility] Cancer Center Hematology & Oncology - [facility] [address] [place] [address] Dana Padilla MD 111 [facility], Level 2 [place] [address] documented as of this encounter Visit Diagnoses Not on filedocumented in this encounter Care Teams Powder Worker Tnt Relationship Specialty Start Date End Date Emigdio Veronica MD 2 [place] [phone] PCP - General Internal Medicine - Primary Care 05/22/20 02/21/24 Izabella Snowden, [facility] 1 [facility], [facility], 3rd [place] [address] Skirt Panel Assembler 02/21/23 05/03/24 documented as of this encounter
--- OUTSIDE RECORDS SUMMARY | 2024-11-22 16:57 | XMS_ITS | Encounter Summary ---
Author Organization [facility] Address [address] [place] [address] Care Team Providers Care Fisher Diving Name Role Phone Emigdio Veronica MD Primary Care Provider + Izabella Snowden [facility] Unavailable None, Provider Primary Care Provider Gabriel Wei Primary Care Provider [phone] Mirna Guerrero Primary Care Provider + Reason for Visit * Reason Comments Medications Refill Encounter Details Date Type Department Care Team (Late st Contact Info) Description 03/11/2023 Refill [facility] Adult Primary Care - [place] 2 [place] [address] Emigdio Veronica MD [address] [place] [phone] Medications Refill Social History Tobacco [...] 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 Not on file Not [...] 13:00 EST Office Visit [facility] Ophthalmology - [address] [phone] Gagandeep Rome MD [address] [place] [address], [facility] 5 [place] [phone] 02/11/2025 13:30 EDT Telemedicine [facility] Hematology & Oncology [address] [phone] Dana Padilla MD [address] [place] [address], [facility] 2 [place] [address] documented as of this encounter Visit Diagnoses Not on filedocumented in this encounter Additional Health Concerns Infection Onset Date Last Indicated Resolved Time R/O COVID-19 04/28/2023 04/28/2023 04/29/2023 0:02 EDT R/O COVID-19 09/07/2023 09/07/2023 09/07/2023 22:1 6 EDT documented as of this encounter Care Teams Fisher Diving Relationship Specialty Start Date End Date Emigdio Veronica MD [address] [place] [phone] PCP - General Internal Medicine - Primary Care 05/22/20 02/21/24 None, Provider PCP - General 02/24/24 03/18/24 Gabriel Gandara PA PCP - General 03/19/24 09/11/24 Mirna Guerrero PA [address] [place] [address] PCP - General 09/12/24 Izabella Snowden, RN ADVANCED 1 [facility], 3rd [place] [phone] Senior Buyer 02/21/23 05/03/24 documented as of this encounter
--- OUTSIDE RECORDS SUMMARY | 2024-11-22 16:57 | XMS_ITS | Encounter Summary ---
Author Organization [facility] Address [address] [place] [address] Care Team Providers Care Coffee Sommelier Name Role Phone Emigdio Veronica MD Primary Care Provider + Izabella Snowden [facility] Unavailable [phone] Reason for Visit * Reason Onset Date Comments Medications Refill 03/11/2023 Encounter Details Date Type Department Care Team (Late st Contact Info) Description 03/11/2023 Refill [facility] Adult Primary Care - [place] 2 [place], [place] [phone] Emigdio Veronica MD [address] [place] [address] Medications Refill Social History Tobacco [...] slept in a fdc (including now)? 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 270 Capsule 03/12/2023 3 ondansetron (ZOFRAN) 4 mg tablet Take 1 Tablet by mouth every 8 hours as needed for Nausea. 30 Tablet 03/12/2023 3 documented in this encounter Miscellaneous Notes * Telephone Encounter - Maritza Menon RN - 03/12/2023 0947 EDT Called and spoke with pt to relay message that scripts for gabapentin and zofran have been sent to [facility] MARITZA MENON RN 03/12/23 9:48 * Telephone Encounter - Nguyen Nolasco NP - 03/12/2023 0936 EDT Rx sent. * Telephone Encounter - Maritza Menon RN - 03/12/2023 0913 EDT Requested Prescriptions Pending Prescriptions Disp Refills ??? ondansetron (ZOFRAN) 4 mg tablet 30 Tablet 1 Sig: Take 1 Tablet by mouth every 8 hours as needed for Nausea. ??? gabapentin (NEURONTIN) 300 mg capsule 270 Capsule 1 Sig: Take 1 Capsule by mouth 3 times daily. Pharmacy: [facility] Last Refill Date: 01/26/23 30 tablets with 1 refill, 10/04/22 270 capsules with 1 refill Last Visit Date: 02/24/23 SOB Next Non-Acute Visit Date Scheduled with Care Team: 03/15/2023 f/u depression MARITZA MENON RN 03/12/2023 9:13 * Telephone Encounter - Katarina Fitzgerald - 03/12/2023 0907 EDT Patient is calling because she is out of medication and needs to have these today. Patient states she hasn't been able to eat due to nausea. * Telephone Encounter - Tiny Moss - 03/11/2023 1434 EDT Requested Prescriptions Pending Prescriptions Disp Refills ??? ondansetron (ZOFRAN) 4 mg tablet 30 Tablet 1 Sig: Take 1 Tablet by mouth every 8 hours as needed for Nausea. ??? gabapentin (NEURONTIN) 300 mg capsule 270 Capsule 1 Sig: Take 1 Capsule by mouth 3 times daily. [facility]/pharmacy #[id number] - [address] Confirmed Pharmacy? Yes Patient out of medication? Yes: Needs Refill Now Last Refill Date: 01-26-23 Refills left? (explain exceptions requiring early refill) No Recent Visits Date Type Provider Dept 02/24/23 Office Visit Scottie Campuzano PA-C [facility] Adult Prim Care 02/16/23 Office Visit Scottie Campuzano PA-C [facility] Adult Prim Care 01/21/23 Office Visit Emigdio Veronica MD [facility] Adult Prim Care 01/05/23 Office Visit Emigdio Veronica MD [facility] Adult Prim Care 12/23/22 Office Visit Emigdio Veronica MD [facility] Adult Prim Care 11/25/22 Office Visit Emigdio Veronica MD [facility] Adult Prim Care 09/29/22 Office Visit Emigdio Veronica MD [facility] Adult Prim Care 09/17/22 Office Visit Emigdio Veronica MD [facility] Adult Prim Care 08/11/22 Office Visit Emigdio Veronica MD [facility] Adult Prim Care 07/29/22 Office Visit Scottie Campuzano PA-C [facility] Adult Prim Care Showing recent visits within past 540 days with a meds authorizing provider and meeting all other requirements Future Appointments Date Type Provider Dept 03/15/23 Appointment Emigdio Veronica MD [facility] Adult Prim Care 04/22/23 Appointment Emigdio Veronica MD [facility] Adult Prim Care Showing future appointments within next 150 days with a meds authorizing provider and meeting all other requirements Future appointment: Already Scheduled Tiny Moss 03/11/2023 14:35 documented in this encounter Plan of Treatment Upcoming Encounters Date Type Department Care Team (Late st Contact Info) Description 01/04/2025 13:00 EST [facility] - [address] [phone] Gagandeep Rome MD [address] [place] [address], [facility] 5 [place] [address] 02/11/2025 13:30 EDT Telemedicine [facility] Hematology & Oncology [address] [address] Dana Padilla MD [address] [place] [address], [facility] 2 [place] [phone] documented as of this encounter Visit Diagnoses Not on filedocumented in this encounter Discontinued Medications Medication Sig Discontinue Reason Start Date End Da te gabapentin (NEURONTIN) 300 mg capsule Take 1 Capsule by mouth 3 times daily. Reorder 10/04/2022 03/11/2023 ondansetron (ZOFRAN) 4 mg tablet TAKE 1 TABLET BY MOUTH EVERY 8 HOURS NEEDED FOR NAUSEA Reorder 01/26/2023 03/11/2023 documented as of this encounter Care Teams Coffee Sommelier Relationship Specialty Start Date End Date Emigdio Veronica MD [address] [place] [phone] PCP - General Internal Medicine - Primary Care 05/22/20 02/21/24 Izabella Snowden, [facility] 1 [facility], 3rd [place] [phone] Paint Spray Tender 02/21/23 05/03/24 documented as of this encounter
--- OUTSIDE RECORDS SUMMARY | 2024-11-22 16:57 | XMS_ITS | Encounter Summary ---
Author Organization [facility] Address [address] [place] [address] Care Team Providers Care Motorcycle Designer Name Role Phone Emigdio Veronica MD Primary Care Provider + Izabella Snowden [facility] Unavailable [phone] Reason for Visit * Reason Comments Depression BHS and PHQ9 given t o pt. Post-ED Follow Up Seen in ED 02/23/23 fo r COPD exacerbation. 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 No / Unsure 02/14/2023 6:41 EDT documented as of this encounter Last Filed Vital Signs Vital Sign Reading Time Taken Comments Blood Pressure 108/54 02/24/2023 0930 EDT Pulse 80 02/24/2023 0930 EDT Temperature 36.4 ??C (97.5 ??F) 02/24/2023 0930 EDT Respiratory Rate 24 02/24/2023 0930 EDT Oxygen Saturation - - Inhaled Oxygen [...] this encounter Patient Instructions * Patient Instructions* Melina Low LPN - 02/24/2023 9:30 EDT Quitting smoking Stopping smoking is [...] with a trained counselor. Tobacco Counseling in [facility] offers free counseling services to residents who are ready to cut back or quit using tobacco. Services include: phone coaching (), online tools and support for those who would like to make changes on their own (www.[place]), as well as in-person group workshops. Free nicotine replacement therapy is available through all of these resources. To learn more about your options visit www.[place] or call 2-853-MKOY-NOW ( ). To speak with an in-person tobacco counselor in [facility] call, [phone]. [place] Resident, please visit: [email or web address] I hope you quit smoking. I think it's the best thing you can do for your health. Please call our office if you have any questions. documented in this encounter Ordered Prescriptions Prescription Sig Dispense Quantity Refills Last Filled Start Date End Date venlafaxine (EFFEXOR-XR) 150 mg XR capsule Take 1 Capsule by mouth daily. (total daily dose of this medication is 150 mg). 90 Capsule 3 02/24/2023 4 busPIRone (BUSPAR) 5 mg tablet Take 1 , 2, or 3 at bedtime for anxiety. may repeat after 6 hours if needed. 60 Tablet 02/24/2023 3 documented in this encounter Progress Notes * Scottie Campuzano PA-C - 02/24/2023 0930 EDT Subjective: Patient ID: Tara Yun is an 62 y.o. female. Chief Complaint Patient presents with ??? Depression BHS and PHQ9 given to pt. ??? Post-ED Follow Up Seen in ED 02/23/23 for COPD exacerbation. HPI Patient following up after being seen at the ER yesterday. She was started on antibiotics. She is not feeling much better today. She continues to have severe anxiety and insomnia. She has not yet heard from the manager park or protective services social worker. She apparently did not get hear the message that was left for her. She is taking medications as directed. I asked her about her living situation, and whether it would be helpful for her to go and stay withher son in [facility] for a few days. She explains that there is no room for her at his place.Also, she feels that she really needs to be close to [place] because of her medical problems. Ifolivier suffered any kind of emergency she wants to be able to get to [facility] quickly. She tells me that she took quetiapine many years ago when she was living in [place]. She had to stop it because of some side effects. She does not specifically remember what the problem was. Patient Active Problem List Diagnosis ??? Pancytopenia [...] Outpatient Medications Marked as Taking for the 02/24/23 encounter (Office Visit) with Scottie Campuzano PA-C Medication Sig Note Dispense Refill ??? albuterol 90 mcg/actuation inhaler Inhale 1-2 Puffs as directed every 4 hours as needed for Wheezing. 1 Inhaler 0 ??? azithromycin (ZITHROMAX) 250 mg tablet Take 1 Tablet by mouth daily for 4 days. 4 Tablet 0 ??? busPIRone (BUSPAR) 5 mg tablet Take 1 , 2, or 3 at bedtime for anxiety. may repeat after 6 hours if needed. 60 Tablet 0 ??? chlorzoxazone (PARAFON FORTE) 500 mg [...] hours of use. 30 Patch 1 ??? ondansetron (ZOFRAN) 4 mg tablet [...] 2 times daily. 180 Tablet 3 ??? predniSONE (DELTASONE) 20 mg tablet Take 2 Tablets by mouth daily for 5 days. 10 Tablet 0 ??? [DISCONTINUED] ramelteon (ROZEREM) 8 mg tablet Take 1 at bedtime if needed for sleep. 02/24/2023:not effective February 2023. 15 Tablet 0 ??? spironolactone (ALDACTONE) 100 mg [...] medication is 150 mg). 90 Capsule 3 ??? [DISCONTINUED] venlafaxine (EFFEXOR-XR) 75 mg XR capsule Take 1 Capsule by mouth daily. 30 Capsule 2 ROS - See HPI Objective: BP 108/54 Pulse 80 Temp 36.4 ??C (97.5 ??F) (Tympanic) Resp 24 Physical Exam Vitals reviewed. Constitutional: Appearance: She is well-developed and well-nourished. Eyes: Conjunctiva/sclera: Conjunctivae normal. Cardiovascular: Rate and Rhythm: Normal rate and regular rhythm. Pulmonary: Effort: Pulmonary effort is normal. No respiratory distress. Skin: General: Skin is warm and dry. Psychiatric: Behavior: Behavior normal. Thought Content: Thought content normal. Judgment: Judgment normal. Comments: Mildly anxious Assessment / Plan: Physically, Gena seems quite well today. She is entirely comfortable. Breathing normally. Good skin color. Psychologically, she is clearly stressed and somewhat anxious. However, she seems to be managing her emotions effectively today. I recommended to her that we increase her venlafaxine dose from 75-1 50. She agrees. Also, I we will have her start buspirone for anxiety. I explained that this is sometimes quite effective. She will need to start on the low-dose and increase as needed and tolerated. She will follow-up with Dr. Veronica in 2 or 3 weeks. There are no diagnoses linked to this encounter. Med Orders Placed This Visit and Additions to the Medication List Medications ??? busPIRone (BUSPAR) 5 mg tablet Sig: Take 1 , 2, or 3 at bedtime for anxiety. may repeat after 6 hours if needed. Dispense: 60 Tablet Refill: 0 ??? venlafaxine (EFFEXOR-XR) 150 mg XR capsule Sig: Take 1 Capsule by mouth daily. (total daily dose of this medication is 150 mg). Dispense: 90 Capsule Refill: 3 New dose to replace the 75 mg size. No orders of the defined types were placed in this encounter. Scottie Campuzano PA-C Next appt at [place] Office: 04/22/2023 02/24/2023 10:00 documented in this encounter Plan of Treatment Upcoming Encounters Date Type Department Care Team (Late st Contact Info) Description 01/04/2025 13:00 EST Office Visit [facility] Ophthalmology - [address] [phone] Gagandeep Rome MD [address] [place] [address], [facility] 5 [place] [phone] 02/11/2025 13:30 EDT Telemedicine [facility] Hematology & Oncology - [address] [phone] Dana Padilla MD [address] [place] [address], [facility] 2 [place] [address] documented as of this encounter Visit Diagnoses Diagnosis SOB (shortness of breath)- Primary Shortness of breath Anxiety Anxiety state, unspecified documented in this encounter Discontinued Medications Medication Sig Discontinue Reason Start Date End Da te ramelteon (ROZEREM) 8 mg tablet Take 1 at bedtime if needed for sleep. Therapy completed 02/17/2023 02/24/2023 venlafaxine (EFFEXOR-XR) 75 mg XR capsule Take 1 Capsule by mouth daily. Dose adjustment 12/23/2022 02/24/2023 documented as of this encounter Care Teams Motorcycle Designer Relationship Specialty Start Date End Date Emigdio Veronica MD [address] [place] [phone] PCP - General Internal Medicine - Primary Care 05/22/20 02/21/24 zIabella Snowden, [facility] 1 [facility], 3rd [place] [phone] Sugar Presser 02/21/23 05/03/24 documented as of this encounter
--- OUTSIDE RECORDS SUMMARY | 2024-11-22 16:57 | XMS_ITS | Encounter Summary ---
Author Organization [facility] Address [address] [place] [address] Care Team Providers Care Business Job Titles Name Role Phone Emigdio Veronica MD Primary Care Provider + Izabella Snowden [facility] Unavailable [phone] Reason for Visit * Reason Onset Date Comments Medications Refill 02/17/2023 Encounter Details Date Type Department Care Team (Late st Contact Info) Description 02/17/2023 Refill [facility] H[facility] Oncology - [address] [phone] Dana Padilla MD [address] [facility], [facility] 2 [place] [address] Medications Refill Social History Tobacco Use Types [...] 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 54 mL 3 02/17/2023 10/19/2023 documented in this encounter Miscellaneous Notes * Telephone Encounter - Jazmin Machado - 02/17/2023 0843 EDT Medication(s) Requested enoxaparin (LOVENOX) 60 mg/0.6 mL injection(30 day supply) Pharmacy [facility]/pharmacy #[id number] - [place], [place] - [address] ?[phone] Next Visit Date 06/10/2023 Last Visit Date 02/07/2023 Out of Medication? Yes-Patient request a Project Rep[employer] message once the prescription has been sent Jazmin Machado 02/17/2023 8:43 documented in this encounter Plan of Treatment Upcoming Encounters Date Type Department Care Team (Late st Contact Info) Description 01/04/2025 13:00 EST Office Visit [facility] Ophthalmology - [address] [phone] Gagandeep Bailey MD 111 [facility], [address] [place] [phone] 02/11/2025 13:30 EDT Telemedicine [facility] Oncology - [address] [phone] Dana Padilla MD [address] [facility], [address] [place] [address] documented as of this encounter Visit Diagnoses Not on filedocumented in this encounter Discontinued Medications Medication Sig Discontinue Reason Start Date End Da te enoxaparin (LOVENOX) 60 mg/0.6 mL injection Inject 60 mg into the skin daily. Reorder 12/19/2022 02/17/2023 documented as of this encounter Additional Health Concerns Infection Onset Date Last Indicated Resolved Time R/O COVID-19 02/23/2023 02/23/2023 02/23/2023 7:15 EDT R/O COVID-19 04/28/2023 04/28/2023 04/29/2023 0:02 EDT documented as of this encounter Care Teams Business Job Titles Relationship Specialty Start Date End Date Emigdio Veronica MD [address] [place] [address] PCP - General Internal Medicine - Primary Care 05/22/20 02/21/24 Izabella Snowden, [facility] 1 [facility], 3rd [place] [address] Framing And Hanging 02/21/23 05/03/24 documented as of this encounter
--- OUTSIDE RECORDS SUMMARY | 2024-11-22 16:57 | XMS_ITS | Encounter Summary ---
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 albuterol 90 mcg/actuation inhaler, Inhale 1-2 Puffs as directed every 4 hours as needed for Wheezing., Disp: 1 Inhaler, Rfl: 0 ??? chlorzoxazone (PARAFON FORTE) 500 mg tablet, TAKE 1 TABLET BY MOUTH THREE TIMES A DAY NEEDEDFOR MUSCLE SPASMS, Disp: 90 Tablet, Rfl: 1 ??? diclofenac sodium gel, Apply 2 g topically 2 times daily as needed for Pain (Knee pain)., Disp:50 g, Rfl: 1 ??? enoxaparin (LOVENOX) 60 mg/0.6 mL injection, Inject 60 mg into the skin daily., Disp: 54 mL, Rfl: 3 ??? fluticasone propionate (FLOVENT DISKUS) 100 mcg/actuation blister with device, , Disp: , Rfl: ??? furosemide (LASIX) 20 mg tablet, Take 2 Tablets by mouth daily. Can take additional 20 mg tablet for a total of 60 mg martin if weights are up by greater then 2 pounds from baseline, Disp: , Rfl: ??? gabapentin (NEURONTIN) 300 mg capsule, Take 1 Capsule by mouth 3 times daily., Disp: 270 Capsule, Rfl: 1 ??? INCRUSE ELLIPTA 62.5 mcg/actuation, INHALE 1 PUFF BY MOUTH DIRECTED DAILY, Disp: 30 Each, Rfl: 0 ??? ketotifen (ZADITOR) 0.025 % (0.035 %) ophthalmic solution, PLACE 1 DROP IN BOTH EYES TWICE DAILY NEEDED FOR EYE IRRITATION. DAILY MAX: 2 DROPS PER EYE, Disp: 5 mL, Rfl: 3 ??? lactulose (CHRONULAC) 10 gram/15 mL solution, TAKE 15-30ML BY MOUTH DAILY NEEDED (CONSTIPATION. TARGET GOAL OF TWO BOWEL MOVEMENTS DAILY)., Disp: 2838 mL, Rfl: 1 ??? levothyroxine (SYNTHROID) 25 mcg tablet, Take 1 Tablet by mouth daily., Disp: 90 Tablet, Rfl: 1 ??? lidocaine 2 % solution, Take 10 mL by mouth every 3 hours as needed for Pain., Disp: 100 mL, Rfl: 0 ??? lidocaine 4 % patch, Apply to back once daily as needed for pain. Remove after 12 hours of use., Disp: 30 Patch, Rfl: 1 ??? naloxone (NARCAN) 4 mg/actuation nasal spray, 0.1 mL by nasal route as needed for Opioid Reversal. Repeat every 2-3 minutes if not effective and overdose is suspected. (spray is harmless in excess)., Disp: 1 Each, Rfl: 1 ??? ondansetron (ZOFRAN) 4 mg tablet, TAKE 1 TABLET BY MOUTH EVERY 8 HOURS NEEDED FOR NAUSEA, Disp: 30 Tablet, Rfl: 1 ??? oxyCODONE (ROXICODONE) 5 mg immediate release tablet, Take 1 Tablet by mouth 3 times daily as needed for up to 28 days for Pain. Daily Max: 15 mg, Disp: 84 Tablet, Rfl: 0 ??? OXYGEN-AIR DELIVERY SYSTEMS MISC, 2 L by misc (non-drug; combo route) route at bedtime., Disp: , Rfl: ??? pantoprazole (PROTONIX) 40 mg tablet, Take 1 Tablet by mouth 2 times daily., Disp: 180 Tablet, Rfl: 3 ??? polyethylene glycol (GOLYTELY;NULYTELY) 236-22.74-6.74 -5.86 gram suspension, Instructions mailed once procedure scheduled. (Patient not taking: No sig reported), Disp: 4000 mL, Rfl: 0 ??? ramelteon (ROZEREM) 8 mg tablet, Take 1 at bedtime if needed for sleep., Disp: 15 Tablet, Rfl: 0 ??? spironolactone (ALDACTONE) 100 mg tablet, TAKE 1 TABLET BY MOUTH EVERY DAY, Disp: 90 Tablet, Rfl: 1 ??? sucralfate (CARAFATE) 1 gram tablet, TAKE 1 TABLET BY MOUTH FOUR TIMES A DAY, Disp: 120 Tablet,Rfl: 3 ??? traZODone (DESYREL) 100 mg tablet, Take 2 Tablets by mouth at bedtime., Disp: 180 Tablet, Rfl: 1 ??? venlafaxine (EFFEXOR-XR) 75 mg XR capsule, Take 1 Capsule by mouth daily., Disp: 30 Capsule, Rfl: 2 No current facility-administered medications for this visit. Facility-Administered Medications Ordered in Other Visits: ??? albuterol (ACCUNEB) 2.5 mg /3 mL (0.083 %) nebulizer solution, , , , CM reviewed medication list in the chart Living Arrangement: [place], [place] Social Supports: Partner lives in [place], Son in [place] Activities requiring assistance: Independent with ADLs Current plan for assistance with ADLs: not applicable Hearing/Vision: no hearing or visual limitations identified Cognitive Function: No cognitive impairment identified Health literacy Assessment: patient is able to read/write, appropriate to their developmental age Social Determinants of Health: SDOH screen completed during visit: No Food Insecurity: Not on file Financial Resource Strain: Not on file Housing Stability: Not on file Transportation Needs: Not on file Depression: At risk ??? PHQ-2 Score: 6 Alcohol Use: Not on file Tobacco Use: High Risk ??? Smoking Tobacco Use: Some Days ??? Smokeless Tobacco Use: Never ??? Passive Exposure: Not on file Healthcare Insurance: Payer/Plan Subscr Sex Relation Sub. Ins. ID Effective Group Num 1. [facility] GOOD YUNFRITZ Camacho 1960 Female Self [id number] 01/19/23 [id number] [address] [address] 2. [place]ICAID [place] -* GOOD YUNFRITZ Camacho 1960 Female Self [id number] 09/21/19 [address] DME: none DME vendor: not applicable Barriers to using technology: none identified Need for Caregiver Resources: independent without need for assistance Cultural, spiritual or language factors affecting health: none identified Existing Community Resources: Disability, 3 squares Gaps in Resources Identified: Counseling, Hosing, Transportation Advance Directive on File: health care treatment directive Assessment/Clinical Summary: Patient is a 62 year old single woman who was referred for care management by Scottie Campuzano for assistance in connecting to community resources and supports. Patient resides in [place], [place], renting a room in a house. She has lived here for 8 years. Patientfinds current living situation stressfull-roommate in house has some mental health issues and roommates boyfriend is a registered sex offender. Patient receives SSDI and 3 squares food assistance. Patient does not have a vehicle and relies on her roommate for transportation. Patient reports that she has utilized [employer] transportation in the past but not recent. Patient has limited supports in the area. Her primary support is her Son and grandchildren-however son recently moved to [place]. Patient also identifies being in a relationship with a man who lives [facility]. She reports that he is a support as well. Patient also has a Daughter in [facility]-emotional issues she is dealing with. Another daughter-not involved in her life for years-lives with her father in [place]. Patient also has multiple and complicated medical issues including COPD, Chronic Pain, Cirrhosis, Asthma, Thrombocytopenia. Sleep apnea-had sleep study done 04/14/23-uses CPAP machine-Started on new medication for sleep Ramelteon. Patient also reports dx of depression and anxiety-reports increase in depressive symptoms in the context of her living situation and medical issues. Patient denies any Self harm or suicidal ideation.She is not currently in counseling. Discussed resources for Crisis Hotline and Pathways peer Support Line as well. Patient identied 3 issues she would like assistance with: 1. [employer]-Patient would like to apply for [employer] Transportation Assistance. 2. Housing-Patient would like to apply for Subsidized Housing 3.Counseling-Patient would like assistance in connecting to a counseling provider. Discussed referral for [facility] [employer] to assist with Housing and [employer] Applications. CM assisted patient in completing online intake form for [facility]-discussed waiting list being 4-6 months at this time. Prioritized Patient Identified Goals: 1. Patient will follow up with in the next month for assistance with applying for subsidized housing options and [employer] transportation. 2. Patient will follow up with CM in one month. Plan CM will follow-up on 03/28/23 at 1030am CM will place referral for [employer] to assist with housing and [employer] transportation. CM mailed patient as requested to her home address information on Crisis Line, Pathways Peer Support Line, and Senior Housing options. DARNELL MCCORMICK 02/21/2023 12:17 documented in this encounter Plan of Treatment Upcoming Encounters Date Type Department Care Team (Late st Contact Info) Description 01/04/2025 13:00 EST Office Visit [facility] Ophthalmology - [address] [phone] Gagandeep Rome MD [address] [place] [address], [facility] 5 [place] [phone] 02/11/2025 13:30 EDT Telemedicine [facility] Hematology & Oncology - [address] [address] Dana Padilla MD [address] [place] [address], [facility] 2 [place] [phone] documented as of this encounter Visit Diagnoses Not on filedocumented in this encounter Care Teams Structural Iron Worker Relationship Specialty Start Date End Date Emigdoi Veronica MD [address] [place] [address] PCP - General Internal Medicine - Primary Care 05/22/20 02/21/24 Izabella Snowden, [facility] 1 [facility], 3rd [place] [address] Fire Observer 02/21/23 05/03/24 documented as of this encounter
--- OUTSIDE RECORDS SUMMARY | 2024-11-22 16:57 | XMS_ITS | Encounter Summary ---
Author Organization [facility] Address [address] [place] [address] Care Team Providers Care Ornamental Metalwork Designer Name Role Phone Emigdio Veronica MD Primary Care Provider + Izabella Snowden [facility] [phone] None, Provider Primary Care Provider Gabriel Wei Primary Care Provider Mirna Guerrero Primary Care Provider + Reason for Visit * Reason Onset Date Comments Other 02/17/2023 Call about sleep ing medication Encounter Details Date Type Department Care Team (Late st Contact Info) Description 02/17/2023 Telephone [facility] Adult Primary Care - [place] [address] [place] [address] Scottie Campuzano PA-C [address] [place] [address] Other (Call about sleeping medication) Social History Tobacco Use Types Packs/Day Years [...] 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 15 Tablet 02/17/2023 3 documented in this encounter Miscellaneous Notes * Telephone Encounter - Sharon Joseph RN - 02/17/2023 1415 EDT The patient indicates understanding of these issues and agrees with the plan. * Telephone Encounter - Sharon Joseph RN - 02/17/2023 1358 EDT Pt has a voicemail that has not been set us yet. Unable to LM * Telephone Encounter - Scottie Campuzano PA-C - 02/17/2023 1258 EDT Please call Tara 1. Tell her that I'm going to have one of the social workers call her to talk about possible housing alternatives for her. 2. Let her know that I discussed the sleep problem with Dr. Veronica, and he wants her to start taking Ramelteon at bedtime for sleep. It is a very potent sleeping medication. Tara got it previously in the hospital and the notes look like it was helpful. She should try it for a few nights at least. Then call or message next week with an update about sleep. Scottie Rosas documented in this encounter Plan of Treatment Upcoming Encounters Date Type Department Care Team (Late st Contact Info) Description 01/04/2025 13:00 EST Office Visit [facility] Ophthalmology - [address] [phone] Gagandeep Rome MD [address] [place] [address], [facility] 5 [place] [phone] 02/11/2025 13:30 EDT Telemedicine [facility] Hematology & Oncology - [address] [phone] Dana Padilla MD [address] [place] [address], [facility] 2 [place] [phone] documented as of this encounter Visit Diagnoses Not on filedocumented in this encounter Additional Health Concerns Infection Onset Date Last Indicated Resolved Time R/O COVID-19 02/23/2023 02/23/2023 02/23/2023 7:15 EDT R/O COVID-19 04/28/2023 04/28/2023 04/29/2023 0:02 EDT R/O COVID-19 09/07/2023 09/07/2023 09/07/2023 22:1 6 EDT documented as of this encounter Care Teams Ornamental Metalwork Designer Relationship Specialty Start Date End Date Emigdio Veronica MD [address] [place] [phone] PCP - General Internal Medicine - Primary Care 05/22/20 02/21/24 None, Provider PCP - General 02/24/24 03/18/24 Gabriel Gandara PA PCP - General 03/19/24 09/11/24 Mirna Guerrero PA [address] [place] [address] PCP - General 09/12/24 Izabella Snowden, TRANSITION OF CARE SPECIALIST 1 [facility], 3rd [place] [address] Purchasing Coordinator 02/21/23 05/03/24 documented as of this encounter
--- OUTSIDE RECORDS SUMMARY | 2024-11-22 16:57 | XMS_ITS | Encounter Summary ---
Author Organization [facility] Address [address] [place] [address] Care Team Providers Care Fabrication Department Supervisor Name Role Phone Emigdio Veronica MD Primary Care Provider + Izabella Snowden [facility] Unavailable None, Provider Primary Care Provider Gabriel Wei Primary Care Provider Mirna Guerrero Primary Care Provider + Reason for Visit * Reason Onset Date Comments Hospital Discharge Follow Up 03/14/2023 Encounter Details Date Type Department Care Team (Late st Contact Info) Description 03/14/2023 Telephone [facility] Adult Primary Care - [place] [address] [place], [place] [phone] Sharon Fowler RN Hospital Discharge Follow Up Social History Tobacco [...] slept in a penitentiary (including now)? 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 Yes, still had hematuria but getting better Discharge instructions available? yes Medications Reviewed/prescriptions filled? yes Support at home? yes Home health service/issues? yes Questions about discharge instructions? yes Follow-up visit scheduled? yes Education/Plan: pt will come in for OV tomorrow with CHAY FOWLER RN 03/14/2023 documented in this encounter Plan of Treatment Upcoming Encounters Date Type Department Care Team (Late st Contact Info) Description 01/04/2025 13:00 EST Office Visit [facility] Ophthalmology - [address] [address] Gagandeep Rome MD 111 [facility], [address] [place] [address] 02/11/2025 13:30 EDT Telemedicine [facility] Hematology & Oncology - [facility] [address] [place] [address] Dana Padilla MD 111 [facility], [facility], [address] [place] [address] documented as of this encounter Visit Diagnoses Not on filedocumented in this encounter Additional Health Concerns Infection Onset Date Last Indicated Resolved Time R/O COVID-19 04/28/2023 04/28/2023 04/29/2023 0:02 EDT R/O COVID-19 09/07/2023 09/07/2023 09/07/2023 22:1 6 EDT documented as of this encounter Care Teams Fabrication Department Supervisor Relationship Specialty Start Date End Date Emigdio Veronica MD [address] [place] [phone] PCP - General Internal Medicine - Primary Care 05/22/20 02/21/24 None, Provider PCP - General 02/24/24 03/18/24 Gabriel Gandara PA PCP - General 03/19/24 09/11/24 Mirna Guerrero PA [address] [place] [address] PCP - General 09/12/24 Izabella Snowden, CHIP SILO TENDER 1 [facility], [address]rd [place] [phone] Wirer Maintenance 02/21/23 05/03/24 documented as of this encounter
--- OUTSIDE RECORDS SUMMARY | 2024-11-22 16:57 | XMS_ITS | Encounter Summary ---
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 [...] Visit [facility] Ophthalmology - [address] [phone] Gagandeep Rome MD [address] [place] [address], [facility] 5 [place] [phone] 02/11/2025 13:30 EDT Telemedicine [facility] Hematology & Oncology - [address] [phone] Dana Padilla MD [address] [place] [address], [facility] 2 [place] [address] documented as of this encounter Visit Diagnoses Not on filedocumented in this encounter Care Teams Shredded Filler Cigar Maker Machine Relationship Specialty Start Date End Date Emigdio Veronica MD [address] [place] [address] PCP - General Internal Medicine - Primary Care 05/22/20 02/21/24 Izabella Snowden, [facility] 1 [facility], 3rd [place] [address] Director Of Family Service Center 02/21/23 05/03/24 documented as of this encounter
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
--- OUTSIDE RECORDS SUMMARY | 2024-11-22 16:58 | XMS_ITS | Encounter Summary ---
Author Organization 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 Answer Date of Assessment Author No 12/14/2022 1:55 EST Andrea Theodore RN * Do you have serious difficulty [...] Answer Entry Date Author No 06/16/2022 0:00 EDSoila Karimi RN documented in this encounter Ordered Prescriptions Prescription Sig Dispense Quantity Refills Last Filled Start Date End Date ondansetron (ZOFRAN) 4 mg tablet TAKE 1 TABLET BY MOUTH EVERY 8 HOURS NEEDED FOR NAUSEA 30 Tablet 1 01/26/2023 03/11/2023 documented in this encounter Miscellaneous Notes * Telephone Encounter - Baldemar Taylor RN - 01/26/2023 1032 EST Medication(s) Requested: zofran 4 mg Preferred Pharmacy: [facility] Is patient out of medication? unknown Last Refill Date: 12/30/22 Last Visit Date with Ordering Provider: 01/21/23 Next Non-Acute Visit Date Scheduled with Care Team: 04/22/23 BALDEMAR TAYLOR RN 01/26/2023 10:33 documented in this encounter Plan of Treatment Upcoming Encounters Date Type Department Care Team (Late st Contact Info) Description 01/04/2025 13:00 EST Office Visit [facility] Ophthalmology - [address] [phone] Gagandeep Rome MD [address] [place] [address] [address] [place] [phone] 02/11/2025 13:30 EDT Telemedicine [facility] Hematology & Oncology [address] [phone] Dana Padilla MD [address] [place] [address] [address] [place] [address] documented as of this encounter Visit Diagnoses Not on filedocumented in this encounter Discontinued Medications Medication Sig Discontinue Reason Start Date End Da te ondansetron (ZOFRAN) 4 mg tablet TAKE 1 TABLET BY MOUTH EVERY 8 HOURS NEEDED FOR NAUSEA 12/30/2022 01/26/2023 documented as of this encounter Care Teams Tick Eradicator Relationship Specialty Start Date End Date Emigdio Veronica MD [address] [place] [phone] PCP - General Internal Medicine - Primary Care 05/22/20 02/21/24 documented as of this encounter
--- OUTSIDE RECORDS SUMMARY | 2024-11-22 16:58 | XMS_ITS | Encounter Summary ---
Author Organization [facility] Address [address] [place] [address] Care Team Providers Care Hard Rock Miner Blasting Name Role Phone Emigdio Veronica MD Primary Care Provider + Reason for Visit * Reason Comments Chronic Pain Nausea And somnolance Shortness of Breath Encounter Details Date Type Department Care Team (Late st Contact Info) Description 01/21/2023 14:30 EST Office Visit [facility] Adult Primary Care - [place] [address] [place] [address] Emigdio Veronica MD [address] [place] [address] Cirrhosis of liver with ascites, unspecified hepatic cirrhosis type (HCC-CMS) (Primary Dx); Thrombocytopenia (HCC-CMS); Nausea; SOB (shortness of breath); Chronic obstructive pulmonary disease, unspecified COPD type (HCC-CMS); Chronic pain syndrome; HUEY (obstructive sleep apnea) Social History Tobacco [...] 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 Answer Date of Assessment Author No 12/14/2022 1:55 EST Andrea Theodore, RN * Do you have serious difficulty [...] Soila Arora RN documented in this encounter Patient Instructions * Patient Instructions* Faustina Ashley - 01/21/2023 14:30 EST Quitting smoking Stopping smoking is the [...] with a trained counselor. Tobacco Counseling in [facility] offers free counseling services to residents who are ready to cut back or quit using tobacco. Services include: phone coaching (), online tools and support for those who would like to make changes on their own (www.[employer].Phokki), as well as in-person group workshops. Free nicotine replacement therapy is available through all of these resources. To learn more about your options visit www.[employer].org or call 0-228-HORR-NOW ( ). To speak with an in-person tobacco counselor in [facility] call, [phone]. [place] Resident, please visit: [email or web address] I hope you quit smoking. I think it's the best thing you can do for your health. Please call our office if you have any questions. documented in this encounter Progress Notes * Emigdio Veronica MD - 01/21/2023 1430 EST Tara Yun is a 62 y.o. female with a PMHx of COPD, decompensated liver cirrhosis, thrombocytopenia, portal vein thrombosis, HUEY, frequent falls, chronic pain syndrome on opiate therapy PRIMARY CARE PROVIDER: Emigdio Veronica CHIEF COMPLAINT: Chief Complaint Patient presents with ??? Chronic Pain ??? Nausea And somnolance ??? Shortness of Breath SUBJECTIVE: Tara Yun presents today for a follow-up visit. She reports feeling more nauseous and more short of breath in the last several weeks despite a dramatic improvement in her ascites and lower extremity edema burden. She has lost over 28 pounds withinthe last month despite a reduction in her furosemide from 60 mg to 40 mg daily. She notes that she has been heavily salt restricting her diet and reducing her overall fluid intake within the last month. She continues to struggle with fatigue but reports that her sleep has abruptly improved over the last week. Unfortunately she has yet to obtain a CPAP machine as she is waiting for delivery of the device from her medical supplier. She confirms that she completed her CPAP titration test with her sleep medicine office. She reports that she is chronically treated her nausea with ondansetron twice daily as needed. She denies any significant burden of constipation on her current opiate therapy. She states she has beenon ondansetron for several years for chronic nausea to moderate relief. She denies recent episodes of emesis but states that her appetite has decreased significantly over the last week due to her nausea burden. She reports her chronic pain burden has improved within the last few weeks as her weight has come down. We reviewed that she was referred back to hepatology for review of management of her decompensated liver cirrhosis earlier this year but that referral was closed after 3 separate attempts to reach her by phone failed. I encouraged Gena to reach back out to [facility] hepatology directly to arrange a follow-up appointment with her wallpaperer helper. ROS as above Medications and history reviewed. Current Outpatient Medications Medication ??? albuterol 90 mcg/actuation inhaler ??? chlorzoxazone (PARAFON FORTE) 500 mg tablet ??? diclofenac sodium gel ??? enoxaparin (LOVENOX) 60 mg/0.6 mL injection ??? ferrous sulfate 324 mg (65 mg iron) tablet,delayed release (DR/EC) ??? fluticasone propionate (FLOVENT DISKUS) 100 mcg/actuation [...] (ROXICODONE) 5 mg immediate release tablet ??? oxyCODONE (ROXICODONE) 5 mg immediate release tablet ??? OXYGEN-AIR DELIVERY SYSTEMS MISC ??? pantoprazole (PROTONIX) 40 mg tablet ??? polyethylene glycol (GOLYTELY;NULYTELY) 236-22.74-6.74 -5.86 gram suspension ??? spironolactone (ALDACTONE) 100 mg tablet ??? sucralfate (CARAFATE) 1 gram tablet ??? traZODone (DESYREL) 100 mg tablet ??? venlafaxine (EFFEXOR-XR) 75 mg XR capsule No current facility-administered medications for this visit. Facility-Administered Medications Ordered in Other Visits Medication Route Frequency ??? albuterol (ACCUNEB) 2.5 mg /3 mL (0.083 %) nebulizer solution OBJECTIVE: BP 125/59 (BP Cuff Location: Left arm, BP Patient Position: Sitting, BP Cuff Sizes: Adult, long) Pulse 95 Comment: r Temp 37 ??C (98.6 ??F) (Tympanic) Resp 16 Wt (!) 104.1 kg (229 lb 9.6 oz) SpO2 100% Comment: on room air BMI 39.41 kg/m?? Gen: Well appearing obese middle-age female, NAD HEENT: EOMI, PERRL, conjunctiva pink, no scleral injection/ icterus CV: RRR, no murmurs, rubs or gallops Pulm: CTAB, good air movement, no wheezes, rales, or rhonchi Abd: +BS, soft, NT, mildly distended, hepatomegaly appreciated, no fluid wave noted. Mild ascites appreciated. Extrem: Trace bilateral lower extremity edema, warm and well perfused Skin: No rashes or erythema, intact Neuro: A&Ox3, CN II through XII grossly intact Recent Labs/Imaging: Reviewed in epic ASSESSMENT and PLAN: Tara was seen today for chronic pain, nausea and shortness of breath. Diagnoses and all orders for this visit: Cirrhosis of liver with ascites, unspecified hepatic cirrhosis type (HCC-CMS) (HCC): Dramatic improvement in lower extremity and ascites burden over the last month despite decrease in diuretic therapy. Patient does note decreased intake in the setting of chronic nausea though reports that she is still eating meals and maintaining adequate hydration under a general fluid restriction. She has yet to reestablish care with hepatology. Her last CMP was notable for an elevated creatinine and we discussed obtaining a repeat of her labs to verify stability in her chronic liver and kidney disease. - COMPREHENSIVE METABOLIC PANEL (CMP); Future - PROTIME; Future - COMPLETE BLOOD COUNT; Future Nausea: Chronic in nature. High suspicion that nausea relates to combination of portal vein thrombosis burden, cirrhosis and frequent use of opiates. Cannot exclude acute exacerbation from infectioussource or from an acute on chronic kidney injury. -CMP as above -For now continue ondansetron twice daily as needed -Follow-up with hepatology as above SOB (shortness of breath): Stable O2 sats on presentation today. Dyspnea appears to be chronic and is likely related to patient's longstanding history of COPD. -As needed albuterol -Continue Incruse elliptica as prescribed -O2 as needed -Labs as above Chronic pain syndrome: Pain burden improved with reduction in weight -Continue oxycodone 5 mg 3 times daily as needed as prescribed. Encouraged minimalization of this medication wherever possible HUEY (obstructive sleep apnea): Awaiting CPAP machine. Sleep improved over last week -Follow-up with sleep medicine -Initiate CPAP therapy once machine arrives -Continue sleep strategies as recommended by sleep medicine Health Care Maintenance Health Maintenance Topic Date Due ??? Asthma Action Plan Never done ??? Social Determinants Of Health (SDOH) Never done ??? Lung Function Test (Spirometry) [...] ??? Pill Count 09/17/2023 (Originally 02/19/2022) ??? Behavioral Health Screen 06/09/2023 ??? Opioid Prescription Agreement 06/25/2023 ??? Review Of Systems Adverse Effects 08/11/2023 ??? Functional Assessment 08/11/2023 ??? Current Opioid Misuse Measurement 08/11/2023 ??? [place] Prescription Monitoring System 09/17/2023 ??? Opioid Informed Consent 12/14/2023 ??? Pneumococcal Immunization (4 - PPSV23 if available, else PCV20) 2025 ??? Lipid Profile Screening (Cholesterol) 04/16/2027 ??? Tetanus (Adult) Immunization 03/17/2029 ??? HIV Screening Completed ??? Shingles Immunization Completed ??? Hepatitis C Screen Completed ??? Influenza Immunization (Adult) Completed ??? Pertussis (Adult) Immunization Discontinued F/u: Return in about 3 months (around 04/23/2023) for f30. For cirrhosis, chronic pain follow-up I spent a total of 36 minutes with this patient today face to face, in chart review and in documentation and 32 minutes of that time was spent on education and counseling for decompensated liver cirrhosis, thrombocytopenia, nausea, shortness of breath, COPD, chronic pain syndrome and HUEY. Some of this note was transcribed with Tiny Printsating software. While it was proofread, it may still contain unnoticed grammatical or word errors due to incorrect transcribing. Emigdio Veronica MD 01/23/2023 9:38 documented in this encounter Plan of Treatment Upcoming Encounters Date Type Department Care Team (Late st Contact Info) Description 01/04/2025 13:00 EST Office Visit [facility] Ophthalmology - [address] [id number] Gagandeep Rome MD [address] [place] [address], [facility] [address] [place] [phone] 02/11/2025 13:30 EDT Telemedicine [facility] Hematology & Oncology [address] [id number] Dana Padilla MD [address] [place] [address] [address] [place] [address] documented as of this encounter Results * (ABNORMAL) COMPLETE BLOOD COUNT (01/24/2023 14:19 EST) WBC 3.17(L) 4.00 - 12.40 K/cmm 01/24/2023 15:42 [facility] RBC 4.31 3.86 - 5.04 M/cmm 01/24/2023 15:42 [facility] Hemoglobin 12.6 11.6 - 15.2 gm/dL 01/24/2023 15:42 [facility] HCT 38.9 34.9 - 44.4 % 01/24/2023 15:42 [facility] MCV 90 81 - 98 fl 01/24/2023 15:42 [facility] MCH 29.2 26.7 - 33.3 pg 01/24/2023 15:42 [facility] MCHC 32.4 32.1 - 35.9 gm/dL 01/24/2023 15:42 [facility] RDW-CV 15.6(H) <14.7 % 01/24/2023 15:42 [facility] RDW-SD 51.1(H) <50.4 fl 01/24/2023 15:42 [facility] PLT 101(L) 141 - 377 K/cmm 01/24/2023 15:42 [facility] MPV 10.7 9.5 - 12.7 fl 01/24/2023 15:42 [facility] Blood VENOUS BLOOD / Unknown Venipuncture / Unknown 01/24/2023 14:19 EST 01/24/2023 14:19 EST Emigdio Veronica MD HEMATOLOGY & PF4 ORDERAB LES Final Result Performing Organization Address [facility] de Phone Number [facility] [address] [place] [address] * (ABNORMAL) PROTIME (01/24/2023 14:19 EST) I.N.R. 1.2(H) 0.9 - 1.1 Ratio 01/24/2023 15:44 [facility] Pro Time 13.5(H) 9.7 - 12.8 secs 01/24/2023 15:44 [facility] Blood VENOUS BLOOD / Unknown Venipuncture / Unknown 01/24/2023 14:19 EST 01/24/2023 14:19 EST Narrative [facility] - 01/24/2023 15:44 EST Moderate Intensity Coumadin INR = 2.0-3.0 Adjustments in anticoagulant therapy dose should be based on the INR and NOT on the Protime. Emigdio Veronica MD HEMATOLOGY & PF4 ORDERAB LES Final Result Performing Organization Address [facility] [place]/[facility] Co de Phone Number [facility] [address] [place] [address] * (ABNORMAL) COMPREHENSIVE METABOLIC PANEL (CMP) (01/24/2023 14:19 EST) Sodium 139 136 - 145 mmol/L 01/24/2023 15:59 [facility] Potassium 4.3 3.5 - 5.0 mmol/L 01/24/2023 15:59 [facility] Chloride 103 96 - 110 mmol/L 01/24/2023 15:59 [facility] CO2 Total 28 22 - 32 mmol/L 01/24/2023 15:59 [facility] Glucose 123(H) 70 - 100 mg/dL 01/24/2023 15:59 [facility] BUN 12 10 - 26 mg/dL 01/24/2023 15:59 [facility] Creatinine 1.10(H) 0.52 - 1.04 mg/dL 01/24/2023 15:59 [facility] eGFR 57(L) >60 mL/min/1.7 3m2 01/24/2023 15:59 [facility] Total Protein 6.5 6.3 - 8.2 g/dL 01/24/2023 15:59 [facility] Albumin 3.6 3.4 - 4.9 g/dL 01/24/2023 15:59 [facility] Alkaline Phosphatase 94 38 - 126 U/L 01/24/2023 15:59 [facility] AST 26 15 - 46 U/L 01/24/2023 15:59 [facility] ALT 21 <35 U/L 01/24/2023 15:59 [facility] Bilirubin, Total 0.7 <1.4 mg/dL 01/25/20 23 15:59 [facility] Calcium 8.8 8.5 - 10.5 mg/dL 01/24/2023 15:59 [facility] Albumin/Globulin Ratio 1.2 1.0 - 2.5 01/24/2023 15:59 [facility] Anion Gap 8 5 - 14 01/24/2023 15:59 [facility] Blood VENOUS BLOOD / Unknown Venipuncture / Unknown 01/24/2023 14:19 EST 01/24/2023 14:19 EST us Emigdio Veronica MD CHEMISTRY & BLOOD GAS OR DERABLES Final Result [facility] [address] [place] [address] documented in this encounter Visit Diagnoses Diagnosis Cirrhosis of liver with ascites, unspecified hepatic cirrhosis type (HCC-CMS)- Primary Thrombocytopenia (HCC-CMS) Thrombocytopenia, unspecified Nausea Nausea alone SOB (shortness of breath) Shortness of breath Chronic obstructive pulmonary disease, unspecified COPD type (HCC-CMS) Chronic pain syndrome HUEY (obstructive sleep apnea) Obstructive sleep apnea (adult) (pediatric) documented in this encounter Care Teams [employer] Relationship Specialty Start Date End Date Emigdio Veronica MD [address] [place] [address] PCP - General Internal Medicine - Primary Care 05/22/20 02/21/24 documented as of this encounter
--- OUTSIDE RECORDS SUMMARY | 2024-11-22 16:58 | XMS_ITS | Encounter Summary ---
Author Organization [facility] Address [address] [place] [address] Care Team Providers Care Military Logistics Specialist Name Role Phone Emigdio Veronica MD Primary Care Provider + Izabella Snowden [facility] Unavailable [phone] None, Provider Primary Care Provider Gabriel Wei Primary Care Provider Mirna Guerrero Primary Care Provider + Reason for Visit * Reason Comments Medications Refill Encounter Details Date Type Department Care Team (Late st Contact Info) Description 12/30/2022 Refill [facility] Adult Primary Care - [place] [address] [place] [address] Emigdio Veronica MD [address] [place] [address] Medications Refill Social History Tobacco Use Types Packs/Day Years Used Date Smoking Tobacco: Former Cigarettes 0.3 35 Smokeless Tobacco: Never Comments:smokes [...] Industry 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 No / Unsure 12/14/2022 1:59 EST documented as of this encounter Functional Status [...] HOURS NEEDED FOR NAUSEA 30 Tablet 1 12/30/2022 01/26/2023 documented in this encounter Miscellaneous Notes * Telephone Encounter - Lazaro IrasemaЕЛЕНА swanson - 12/30/2022 1138 EST Requested Prescriptions Pending Prescriptions Disp Refills ??? ondansetron (ZOFRAN) 4 mg tablet [Pharmacy Med Name: ONDANSETRON HCL 4 MG TABLET] 30 Tablet 1 Sig: TAKE 1 TABLET BY MOUTH EVERY 8 HOURS NEEDED FOR NAUSEA [id number] - [address] Confirmed Pharmacy? Yes Patient out of medication? Unknown Last Refill Date: 12.10.22 Refills left? (explain exceptions requiring early refill) No Recent Visits Date Type Provider Dept 12/23/22 Office Visit Emigdio Veronica MD [facility] Adult Prim Care 11/25/22 Office Visit Emigdio Veronica MD [facility] Adult Prim Care 09/29/22 Office Visit Emigdio Veronica MD [facility] Adult Prim Care 09/17/22 Office Visit [facility] 08/11/22 Office Visit Emigdio Veronica MD [facility] Adult Prim Care 07/29/22 Office Visit Scottie Campuzano PA-C [facility] Adult Prim [facility] 07/16/22 Office Visit Scottie Campuzano PA-C [facility] Adult Prim Care 06/25/22 Office Visit Emigdio Veronica MD [facility] Adult Prim Care 05/20/22 Office Visit Nguyen Nolasco NP [facility] Adult Prim Care 02/17/22 Office Visit Emigdio Veronica MD [facility] [place] [facility] Showing recent visits within past 540 days with a meds authorizing provider and meeting all other requirements Future Appointments Date Type Provider Dept 01/21/23 Appointment Emigdio Veronica MD [facility] Adult Prim Care Showing future appointments within next 150 days with a meds authorizing provider and meeting all other requirements Future appointment: Already Scheduled IRASEMA WILLIS LPN 12/30/2022 11:38 documented in this encounter Plan of Treatment Upcoming Encounters Date Type Department Care Team (Late st Contact Info) Description 01/04/2025 13:00 EST Office Visit [facility] Ophthalmology - [address] [phone] Gagandeep Rome MD [address] [place] [address] [address] [place] [phone] 02/11/2025 13:30 EDT Telemedicine [facility] Hematology & Oncology [address] [phone] Dana Padilla MD [address] [place] [address] [address] [place] [phone] documented as of this encounter Visit Diagnoses Not on filedocumented in this encounter Discontinued Medications Medication Sig Discontinue Reason Start Date End Da te ondansetron (ZOFRAN) 4 mg tablet TAKE 1 TABLET BY MOUTH EVERY 8 HOURS NEEDED FOR NAUSEA 11/17/2022 12/30/2022 documented as of this encounter Additional Health Concerns Infection Onset Date Last Indicated Resolved Time R/O COVID-19 02/23/2023 02/23/2023 02/23/2023 7:15 EDT R/O COVID-19 04/28/2023 04/28/2023 04/29/2023 0:02 EDT R/O COVID-19 09/07/2023 09/07/2023 09/07/2023 22:1 6 EDT documented as of this encounter Care Teams Military Logistics Specialist Relationship Specialty Start Date End Date Emigdio Veroncia MD [address] [place] [phone] PCP - General Internal Medicine - Primary Care 05/22/20 02/21/24 None, Provider PCP - General 02/24/24 03/18/24 Gabriel Gandara PA PCP - General 03/19/24 09/11/24 Mirna Guerrero PA [address] [place] [address] PCP - General 09/12/24 Izabella Snowden, OUTSOLE SPLICER [facility] [address] [place] [phone] [employer] 02/21/23 05/03/24 documented as of this encounter
--- OUTSIDE RECORDS SUMMARY | 2024-11-22 16:58 | XMS_ITS | Encounter Summary ---
Author Organization [facility] Address [address] [place] [address] Care Team Providers Care Mammal Keeper Name Role Phone Emigdio Veronica MD Primary Care Provider + Izabella Snowden [facility] Unavailable None, Provider Primary Care Provider Gabriel Wei Primary Care Provider [phone] Mirna Guerrero Primary Care Provider + Reason for Visit * Reason Onset Date Comments Medications Refill 02/09/2023 Encounter Details Date Type Department Care Team (Late st Contact Info) Description 02/09/[address] [facility] Adult Primary Care - [place] [address] [place] [address] Emigdio Veronica MD [address] [place] [address] Medications Refill Social History Tobacco [...] Industry 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 No / Unsure 02/07/2023 12:13 EDT documented as of this encounter Functional [...] Daily Max: 15 mg 84 Tablet 02/16/2023 03/15/2023 documented in this encounter Miscellaneous Notes * Telephone Encounter - Sally Jorge - 02/09/2023 1532 EDT Requested Prescriptions Pending Prescriptions Disp Refills ??? oxyCODONE (ROXICODONE) 5 mg immediate release tablet 84 Tablet 0 Sig: Take 1 Tablet by mouth 3 times daily as needed for up to 28 days for Pain. Daily Max: 15 mg [id number] - [address] Chronic controlled medication yes Last med check visit 01.21.23 Future visit scheduled Yes 02.16.23 Vpms check Yes 09.17.23 Prescription agreement Yes 06.25.23 Patient due for refill yes Is there a plan for tapering of medication noted in chart? unknown Confirmed Pharmacy? Yes Patient out of medication? Unknown Last Refill Date: 01.19.23 Refills left? (explain exceptions requiring early refill) No Recent Visits Date Type Provider Dept 01/21/23 Office Visit Emigdio Veronica MD [facility] [place] Adult Prim [facility] 01/05/23 Office Visit Emigdio Veronica MD [facility] Adult Prim [facility] 12/23/22 Office Visit Emigdio Veronica MD [facility] Adult Prim Care 11/25/22 Office Visit Emigdio Veronica MD [facility] [place] [facility] Prim [facility] 09/29/22 Office Visit Emigdio Veronica MD [facility] Adult Prim Care 09/17/22 Office Visit Emigdio Veronica MD [facility] Adult Prim Care 08/11/22 Office Visit Emigdio Veronica MD [facility] [place] [facility] Prim [facility] 07/29/22 Office Visit Scottie Campuzano PA-C [facility] Adult Prim Care 07/16/22 Office Visit Scottie Campuzano PA-C [facility] [place] Adult Prim [facility] 06/25/22 Office Visit Emigdio Veronica MD [facility] Adult Prim Care Showing recent visits within past 540 days with a meds authorizing provider and meeting all other requirements Future Appointments Date Type Provider Dept 02/16/23 Appointment Scottie Campuzano PA-C [facility] Adult Prim Care 04/22/23 Appointment Emigdio Veronica MD [facility] Adult Prim Care Showing future appointments within next 150 days with a meds authorizing provider and meeting all other requirements Future appointment: Already Scheduled Sally Jorge 02/09/2023 15:32 documented in this encounter Plan of Treatment Upcoming Encounters Date Type Department Care Team (Late st Contact Info) Description 01/04/2025 13:[address] [facility] Ophthalmology - [address] [phone] Gagandeep Rome MD [address] [place] [address], [facility] 5 [place] [address] 02/11/2025 13:30 EDT Telemedicine [facility] Hematology & Oncology [address] [phone] Dana Padilla MD [address] [place] [address], [facility] 2 [place] [address] documented as of this encounter Visit Diagnoses Not on filedocumented in this encounter Discontinued Medications Medication Sig Discontinue Reason Start Date End Da te oxyCODONE (ROXICODONE) 5 mg immediate release tablet Take 1 Tablet by mouth 3 times daily as needed for up to 28 days for Pain. Daily Max: 15 mg Reorder 01/19/2023 02/09/2023 documented as of this encounter Additional Health Concerns Infection Onset Date Last Indicated Resolved Time R/O COVID-19 02/23/2023 02/23/2023 02/23/2023 7:15 EDT R/O COVID-19 04/28/2023 04/28/2023 04/29/2023 0:02 EDT R/O COVID-19 09/07/2023 09/07/2023 09/07/2023 22:1 6 EDT documented as of this encounter Care Teams Mammal Keeper Relationship Specialty Start Date End Date Emigdio Veronica MD [address] [place] [phone] PCP - General Internal Medicine - Primary Care 05/22/20 02/21/24 None, Provider PCP - General 02/24/24 03/18/24 Gabriel Gandara PA PCP - General 03/19/24 09/11/24 Mirna Guerrero PA [address] [place] [address] PCP - General 09/12/24 Izabella Snowden, QUENCHER OPERATOR [facility], 3rd [place] [phone] Diesel Truck Mechanic 02/21/23 05/03/24 documented as of this encounter
--- OUTSIDE RECORDS SUMMARY | 2024-11-22 16:58 | XMS_ITS | Encounter Summary ---
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 Patient aware of Lalitha response. Kidney function is improved and stable. Patient aware to continue the lasix 40 mg daily. The patient indicates understanding of these issues and agrees with the plan. No barriers. * Telephone Encounter - Pam Ivey RN - 01/25/2023 0835 EST Phone call to Pt. No voicemail set up. Sending MCM to call us back. * Telephone Encounter - Emigdio Veronica MD - 01/24/2023 1700 EST I am sorry to hear that tara is very concerned. Unfortunately I am unable to reach out to her today. Triage I would inquire about her specific concerns. You can relay that I am not worried about her current lab results. Her GFR returned mildly depressed at 57, but this is a notable improvement from her GFR last month at 51. Its also mostly stable from November. Her blood sugar was mildly elevated at 123, but I suspect this was related to the fact that the lab was drawn in the afternoon (non-fasting). Her other lab abnormalities appeared stable. My recommendation was going to be to continue her lasix at 40 mg daily since her kidney function isimproving at that dosage and her weights have improved. * Telephone Encounter - Prema Crane - 01/24/2023 1625 EST Patient received her lab results in [facility] and is very concerned and would like to speak with Dr Veronica as soon as possible. She is very worried about the results. documented in this encounter Plan of Treatment Upcoming Encounters Date Type Department Care Team (Late st Contact Info) Description 01/04/2025 13:00 EST Office Visit [facility] Ophthalmology - [address] [phone] Gagandeep Rome MD [address] [place] [address], [facility] [address] [place] [phone] 02/11/2025 13:30 EDT Telemedicine [facility] Hematology & Oncology - [address] [phone] Dana Padilla MD [address] [place] [address], [facility] [address] [place] [phone] documented as of this encounter Visit Diagnoses Not on filedocumented in this encounter Care Teams Managing Editor Relationship Specialty Start Date End Date Emigdio Veronica MD [address] [place] [phone] PCP - General Internal Medicine - Primary Care 05/22/20 02/21/24 documented as of this encounter
--- OUTSIDE RECORDS SUMMARY | 2024-11-22 16:58 | XMS_ITS | Encounter Summary ---
Author Organization [facility] Address [address] [place] [address] Care Team Providers Care Oil Field Equipment Mechanic Supervisor Name Role Phone Emigdio Veronica MD Primary Care Provider + Encounter Details Date Type Department Care Team (Late st Contact Info) Description 01/04/2023 12:30 EST Phlebotomy Only [facility] Laboratory Services - [address] [address] [facility] Other cirrhosis of liver (HCC-CMS); Sepsis (HCC-CMS); Hypotension, unspecified hypotension type; Alcoholic cirrhosis of liver without ascites (HCC-CMS); Portal vein thrombosis; Hypercoagulable state (HCC-CMS); History of bleeding ulcers; Superior mesenteric vein thrombosis (HCC-CMS); Right foot pain; Fatigue, unspecified type; Anticoagulated Social History Tobacco Use Types Packs/Day Years [...] 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 Not [...] Date of Assessment Author No 06/16/2022 0:00 EDSiola Karimi RN documented as of this encounter Mental [...] Description 01/04/2025 13:00 EST Office Visit [facility] Ophthalmology - [address] [phone] Gagandeep Rome MD [address] [place] [address], [facility] 5 [place] [address] 02/11/2025 13:30 EDT Telemedicine [facility] Hematology & Oncology - [address] [phone] Dana Padilla MD [address] [place] [address] 2 [place] [address] documented as of this encounter Procedures Procedure Name Priority Date/Time Associated Diagnosis Comments PROTIME Routine 01/04/2023 12:38 EST Other cirrhosis of liver (HCC-CMS) COMPLETE BLOOD COUNT Routine 01/04/2023 12:38 EST Fatigue, unspecified type Anticoagulated COMPREHENSIVE METABOLIC PANEL (CMP) Routine 01/04/2023 12:38 EST Other cirrhosis of liver (HCC-CMS) documented in this encounter Results * (ABNORMAL) COMPLETE BLOOD COUNT (01/04/2023 12:38 EST) WBC 3.10(L) 4.00 - 12.40 K/cmm 01/04/2023 13:40 EST [facility] RBC 4.43 3.86 - 5.04 M/cmm 01/04/2023 13:40 EST [facility] Hemoglobin 13.2 11.6 - 15.2 gm/dL 01/04/2023 13:40 [facility] HCT 39.5 34.9 - 44.4 % 01/04/2023 13:40 [facility] MCV 89 81 - 98 fl 01/04/2023 13:40 [facility] MCH 29.8 26.7 - 33.3 pg 01/04/2023 13:40 [facility] MCHC 33.4 32.1 - 35.9 gm/dL 01/04/2023 13:40 [facility] RDW-CV 14.6 <14.7 % 01/04/2023 13:40 [facility] RDW-SD 47.8 <50.4 fl 01/04/2023 13:40 [facility] PLT 100(L) 141 - 377 K/cmm 01/04/2023 13:40 [facility] MPV 10.1 9.5 - 12.7 fl 01/04/2023 13:40 [facility] Blood VENOUS BLOOD / Unknown Venipuncture / Unknown 01/04/2023 12:38 EST 01/04/2023 12:38 EST us Emigdio Veronica MD HEMATOLOGY & PF4 ORDERAB LES Final Result Performing Organization Address City/State/[facility] Co de Phone Number [facility] [address] [place] [address] * (ABNORMAL) PROTIME (01/04/2023 12:38 EST) I.N.R. 1.2(H) 0.9 - 1.1 Ratio 01/04/2023 14:06 [facility] Pro Time 13.6(H) 9.7 - 12.8 secs 01/04/2023 14:06 [facility] Blood VENOUS BLOOD / Unknown Venipuncture / Unknown 01/04/2023 12:38 EST 01/04/2023 12:38 EST Narrative [facility] - 01/04/2023 14:06 EST Moderate Intensity Coumadin INR = 2.0-3.0 Adjustments in anticoagulant therapy dose should be based on the INR and NOT on the Protime. us Emigdio Veronica MD HEMATOLOGY & PF4 ORDERAB LES Final Result [facility] [address] [place] [address] * (ABNORMAL) COMPREHENSIVE METABOLIC PANEL (CMP) (01/04/2023 12:38 EST) Sodium 139 136 - 145 mmol/L 01/04/2023 14:26 [facility] Potassium 4.6 3.5 - 5.0 mmol/L 01/04/2023 14:26 [facility] Chloride 101 96 - 110 mmol/L 01/04/2023 14:26 [facility] CO2 Total 29 22 - 32 mmol/L 01/04/2023 14:26 [facility] Glucose 91 70 - 100 mg/dL 01/04/2023 14:26 [facility] BUN 12 10 - 26 mg/dL 01/04/2023 14:26 [facility] Creatinine 1.21(H) 0.52 - 1.04 mg/dL 01/04/2023 14:26 [facility] eGFR 51(L) >60 mL/min/1.7 3m2 01/04/2023 14:26 [facility] Total Protein 7.1 6.3 - 8.2 g/dL 01/04/2023 14:26 [facility] Albumin 4.0 3.4 - 4.9 g/dL 01/04/2023 14:26 [facility] Alkaline Phosphatase 90 38 - 126 U/L 01/04/2023 14:26 [facility] AST 29 15 - 46 U/L 01/04/2023 14:26 [facility] ALT 18 <35 U/L 01/04/2023 14:26 [facility] Bilirubin, Total 1.1 <1.4 mg/dL 01/04/20 14:26 [facility] Calcium 9.0 8.5 - 10.5 mg/dL 01/04/2023 14:26 EST [facility] Albumin/Globulin Ratio 1.3 1.0 - 2.5 01/04/2023 14:26 EST [facility] Anion Gap 9 5 - 14 01/04/2023 14:26 EST [facility] Blood VENOUS BLOOD / Unknown Venipuncture / Unknown 01/04/2023 12:38 EST 01/04/2023 12:38 EST us Emigdio Veronica MD CHEMISTRY & BLOOD GAS OR DERABLES Final Result [facility] [address] [place] [address] documented in this encounter Visit Diagnoses Diagnosis Other cirrhosis of liver (HCC-CMS) Sepsis (HCC-CMS) Hypotension, unspecified hypotension type Alcoholic cirrhosis of liver without ascites (HCC-CMS) Alcoholic cirrhosis of liver Portal vein thrombosis Hypercoagulable state (HCC-CMS) Primary hypercoagulable state History of bleeding ulcers Personal history of peptic ulcer disease Superior mesenteric vein thrombosis (HCC-CMS) Acute vascular insufficiency of intestine Right foot pain Pain in limb Fatigue, unspecified type Anticoagulated Long-term (current) use of anticoagulants documented in this encounter Care Teams Oil Field Equipment Mechanic Supervisor Relationship Specialty Start Date End Date Emigdio Veronica MD [address] [place] [phone] PCP - General Internal Medicine - Primary Care 05/22/20 02/21/24 documented as of this encounter
--- OUTSIDE RECORDS SUMMARY | 2024-11-22 16:58 | XMS_ITS | Encounter Summary ---
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 (5 years old or older) Answer Entry Date Author No 06/16/2022 0:00 EDSoila Karimi RN documented in this encounter Plan of Treatment Upcoming Encounters Date Type Department Care Team (Late st Contact Info) Description 01/04/2025 13:00 EST Office Visit [facility] Ophthalmology - [address] [address] Gagandeep Rome MD [address] [facility], Level [address] [place] [phone] 02/11/2025 13:30 EDT Telemedicine [facility] Hematology & Oncology - [facility] [address] [place], [place] [phone] Dana Padilla MD 111 [facility], Level [address] [place] [address] documented as of this encounter Procedures Procedure Name Priority Date/Time Associated Diagnosis Comments PROTIME Routine 01/24/2023 14:19 EST Cirrhosis of liver with ascites, unspecified hepatic cirrhosis type (HCC-CMS) COMPLETE BLOOD COUNT Routine 01/24/2023 14:19 EST Thrombocytopenia (HCC-CMS) COMPREHENSIVE METABOLIC PANEL (CMP) Routine 01/24/2023 14:19 EST Cirrhosis of liver with ascites, unspecified hepatic cirrhosis type (HCC-CMS) documented in this encounter Results * (ABNORMAL) COMPLETE BLOOD COUNT (01/24/2023 14:19 EST) WBC 3.17(L) 4.00 - 12.40 K/cmm 01/24/2023 15:42 [facility] RBC 4.31 3.86 - 5.04 M/cmm 01/24/2023 15:42 [facility] Hemoglobin 12.6 11.6 - 15.2 gm/dL 01/24/2023 15:42 [facility] HCT 38.9 34.9 - 44.4 % 01/24/2023 15:42 [facility] MCV 90 81 - 98 fl 01/24/2023 15:42 [facility] MCH 29.2 26.7 - 33.3 pg 01/24/2023 15:42 [facility] MCHC 32.4 32.1 - 35.9 gm/dL 01/24/2023 15:42 [facility] RDW-CV 15.6(H) <14.7 % 01/24/2023 15:42 [facility] RDW-SD 51.1(H) <50.4 fl 01/24/2023 15:42 [facility] PLT 101(L) 141 - 377 K/cmm 01/24/2023 15:42 [facility] MPV 10.7 9.5 - 12.7 fl 01/24/2023 15:42 [facility] Blood VENOUS BLOOD / Unknown Venipuncture / Unknown 01/24/2023 14:19 EST 01/24/2023 14:19 EST us Emigdio Veronica MD HEMATOLOGY & PF4 ORDERAB LES Final Result Performing Organization Address [facility] de Phone Number [facility] [address] [place] [address] * (ABNORMAL) PROTIME (01/24/2023 14:19 EST) I.N.R. 1.2(H) 0.9 - 1.1 Ratio 01/24/2023 15:44 [facility] Pro Time 13.5(H) 9.7 - 12.8 secs 01/24/2023 15:44 [facility] Blood VENOUS BLOOD / Unknown Venipuncture / Unknown 01/24/2023 14:19 EST 01/24/2023 14:19 EST Narrative [facility] - 01/24/2023 15:44 EST Moderate Intensity Coumadin INR = 2.0-3.0 Adjustments in anticoagulant therapy dose should be based on the INR and NOT on the Protime. us Emigdio Veronica MD HEMATOLOGY & PF4 ORDERAB LES Final Result Performing Organization Address [facility] Co de Phone Number [facility] [address] [place] [address] * (ABNORMAL) COMPREHENSIVE METABOLIC PANEL (CMP) (01/24/2023 14:19 [facility]) Sodium 139 136 - 145 mmol/L 01/24/2023 15:59 [facility] Potassium 4.3 3.5 - 5.0 mmol/L 01/24/2023 15:59 [facility] Chloride 103 96 - 110 mmol/L 01/24/2023 15:59 [facility] CO2 Total 28 22 - 32 mmol/L 01/24/2023 15:59 [facility] Glucose 123(H) 70 - 100 mg/dL 01/24/2023 15:59 [facility] BUN 12 10 - 26 mg/dL 01/24/2023 15:59 [facility] Creatinine 1.10(H) 0.52 - 1.04 mg/dL 01/24/2023 15:59 [facility] eGFR 57(L) >60 mL/min/1.7 3m2 01/24/2023 15:59 [facility] Total Protein 6.5 6.3 - 8.2 g/dL 01/24/2023 15:59 [facility] Albumin 3.6 3.4 - 4.9 g/dL 01/24/2023 15:59 [facility] Alkaline Phosphatase 94 38 - 126 U/L 01/24/2023 15:59 [facility] AST 26 15 - 46 U/L 01/24/2023 15:59 [facility] ALT 21 <35 U/L 01/24/2023 15:59 [facility] Bilirubin, Total 0.7 <1.4 mg/dL 01/25/20 23 15:59 [facility] Calcium 8.8 8.5 - 10.5 mg/dL 01/24/2023 15:59 [facility] Albumin/Globulin Ratio 1.2 1.0 - 2.5 01/24/2023 15:59 [facility] Anion Gap 8 5 - 14 01/24/2023 15:59 [facility] Blood VENOUS BLOOD / Unknown Venipuncture / Unknown 01/24/2023 14:19 EST 01/24/2023 14:19 EST Emigdio Veronica MD CHEMISTRY & BLOOD GAS OR DERABLES Final Result [facility] [address] [place] [address] documented in this encounter Visit Diagnoses Diagnosis Cirrhosis of liver with ascites, unspecified hepatic cirrhosis type (HCC-CMS) Thrombocytopenia (HCC-CMS) Thrombocytopenia, unspecified documented in this encounter Care Teams Watch Parts Grinder Relationship Specialty Start Date End Date Emigdio Veronica MD [address] [place] [phone] PCP - General Internal Medicine - Primary Care 05/22/20 02/21/24 documented as of this encounter
--- OUTSIDE RECORDS SUMMARY | 2024-11-22 16:58 | XMS_ITS | Encounter Summary ---
Author Organization [facility] Address [address] [place] [address] Care Team Providers Care Well Shooter Name Role Phone Emigdio Veronica MD Primary Care Provider + Izabella Snowden [facility] Unavailable [phone] None, Provider Primary Care Provider Gabriel Wei Primary Care Provider Mirna Guerrero Primary Care Provider + Reason for Visit * Reason Comments Medications Refill Encounter Details Date Type Department Care Team (Late st Contact Info) Description 12/24/2022 Refill [facility] Adult Primary Care - [place] [address] [place] [address] Emigdio Veronica MD [address] [place] [address] Medications Refill Social History Tobacco [...] 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 TARGET GOAL OF TWO BOWEL MOVEMENTS DAILY). 900 mL 1 12/27/2022 documented in this encounter Miscellaneous Notes * Telephone Encounter - Fatoumata Joseph RN - 12/27/2022 4451 EST Requested Prescriptions Pending Prescriptions Disp Refills ??? lactulose (CHRONULAC) 10 gram/15 mL solution [Pharmacy Med Name: LACTULOSE 10 GM/15 ML SOLUTION] 900 mL Sig: TAKE 15-30ML BY MOUTH DAILY NEEDED (CONSTIPATION. TARGET GOAL OF TWO BOWEL MOVEMENTS DAILY). [id number] - [address] Confirmed Pharmacy? Yes Patient out of medication? Unknown Last Refill Date: 12/02/22 Refills left? (explain exceptions requiring early refill) No Recent Visits Date Type Provider Dept 12/23/22 Office Visit Emigdio Veronica MD [facility] Adult Prim Care 11/25/22 Office Visit Emigdio Veronica MD [facility] Prim [facility] 09/29/22 Office Visit Emigdio Veronica MD [facility] 09/17/22 Office Visit Emigdio Veronica MD [facility] Adult Prim Care 08/11/22 Office Visit Emigdio Veronica MD [facility] Adult Prim Care 07/29/22 Office Visit Scottie Campuzano PA-C [facility] Adult Prim Care 07/16/22 Office Visit Scottie Campuzano PA-C [facility] 06/25/22 Office Visit Emigdio Veronica MD [facility] Adult Prim Care 05/20/22 Office Visit Nguyen Nolasco NP [facility] [place] Adult Prim [facility] 02/17/22 Office Visit Emigdio Veronica MD [facility] Adult Prim Care Showing recent visits within past 540 days with a meds authorizing provider and meeting all other requirements Future Appointments Date Type Provider Dept 01/21/23 Appointment Emigdio Veronica MD [facility] Adult Prim Care Showing future appointments within next 150 days with a meds authorizing provider and meeting all other requirements Future appointment: Already Scheduled FATOUMATA JOSEPH RN 12/27/2022 14:47 documented in this encounter Plan of Treatment Upcoming Encounters Date Type Department Care Team (Late st Contact Info) Description 01/04/2025 13:00 EST Office Visit [facility] Ophthalmology - [address] [id number] Gagandeep Rome MD [address] [place] [address] 5 [place] [phone] 02/11/2025 13:30 EDT Telemedicine [facility] Hematology & Oncology [address] [phone] Dana Padilla MD [address] [place] [address] 2 [place] [phone] documented as of this encounter Visit Diagnoses Not on filedocumented in this encounter Discontinued Medications Medication Sig Discontinue Reason Start Date End Da te lactulose 10 gram/15 mL (15 mL) solution Take 10-20 g by mouth daily as needed (Constipation. Target goal of two bowel movements daily). 12/02/2022 12/27/2022 documented as of this encounter Additional Health Concerns Infection Onset Date Last Indicated Resolved Time R/O COVID-19 02/23/2023 02/23/2023 02/23/2023 7:15 EDT R/O COVID-19 04/28/2023 04/28/2023 04/29/2023 0:02 EDT R/O COVID-19 09/07/2023 09/07/2023 09/07/2023 22:1 6 EDT documented as of this encounter Care Teams Well Shooter Relationship Specialty Start Date End Date Emigdio Veronica MD [address] [place] [phone] PCP - General Internal Medicine - Primary Care 05/22/20 02/21/24 None, Provider PCP - General 02/24/24 03/18/24 Gabriel Gandara PA PCP - General 03/19/24 09/11/24 Mirna Guerrero PA [address] [place] [address] PCP - General 09/12/24 Izabella Snowden, HEAT TREATMENT TECHNICIAN 1 [facility], [address] [place] [phone] Vinyl Dipper 02/21/23 05/03/24 documented as of this encounter
--- OUTSIDE RECORDS SUMMARY | 2024-11-22 16:58 | XMS_ITS | Encounter Summary ---
Author Organization [facility] Address [address] [place] [address] Care Team Providers Care Corporate Securities Research Analyst Name Role Phone Emigdio Veronica MD Primary Care Provider + Reason for Visit * Reason Onset Date Comments Shoulder Pain 01/03/2023 Arm Pain 01/03/2023 Bleeding/Bruising 01/03/2023 Encounter Details Date Type Department Care Team (Late st Contact Info) Description 01/03/2023 Telephone [facility] Adult Primary Care - [place] [address] [place] [address] Emigdio Veronica MD [address] [place] [phone] Shoulder Pain; Arm Pain; Bleeding/Bruising Social History Tobacco Use Types Packs/Day [...] 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 The patient indicates understanding of these issues and agrees with the plan. No barriers. * Telephone Encounter - Emigdio Veronica MD - 01/03/2023 1713 EST CBC signed. Agree with OV evaluation for this complaint. * Telephone Encounter - Karol Hoff RN - 01/03/2023 1351 EST Spoke to patient this morning. She reports two weeks ago she doesn't know what she did and popped her right shoulder out. A family member was able to pop it back in, but then 12/30 she tried to catch herself on the railing tripping on stairs and it happened again and had to pop back in. Patient reports bruising below right shoulder, she is currently on Lovenox. She is having hand numbness and tingling. Patient is also feeling fatigued. She reports one instance of dark stools since starting Lovenox. Next available appointment with PCP is 01/07. Scheduled with Maite Vences on 01/05 at same time PCP is in office. Patient states she could do labs prior to the visit. She already has a BMP ordered, which she was supposed to get done 12/20. Pended CBC if appropriate. * Telephone Encounter - Noemi Hall - 01/03/2023 0938 EST Reason for Call: Shoulder Pain, Arm Pain, and Bleeding/Bruising Summary/Symptoms: patient states she popped out shoulder Says it went back in but now has pain inshoulder, arm and significant bruising on arm. patient states she just started also taking blood thinners and is not feeling well overall Onset and Duration: current Does the patient have a computer, laptop or smart phone with high speed & video capability? N/A If so, would they be interested in doing a video visit via [employer]? N/A Appointment Offered? No Noemi Hall 01/03/2023 9:39 documented in this encounter Plan of Treatment Upcoming Encounters Date Type Department Care Team (Late st Contact Info) Description 01/04/2025 13:00 EST Office Visit [facility] Ophthalmology - [address] [phone] Gagandeep Rome MD [address] [place] [address] [address] [place] [phone] 02/11/2025 13:30 EDT Telemedicine [facility] Hematology & Oncology - [address] [phone] Dana Padilla MD [address] [place] [address], [facility] [address] [place] [phone] documented as of this encounter Results * (ABNORMAL) COMPLETE BLOOD COUNT (01/04/2023 12:38 EST) WBC 3.10(L) 4.00 - 12.40 K/cmm 01/04/2023 13:40 EST [facility] RBC 4.43 3.86 - 5.04 M/cmm 01/04/2023 13:40 EST [facility] Hemoglobin 13.2 11.6 - 15.2 gm/dL 01/04/2023 13:40 EST [facility] HCT 39.5 34.9 - 44.4 % 01/04/2023 13:[address] [facility] MCV 89 81 - 98 fl 01/04/2023 13:[address] [facility] MCH 29.8 26.7 - 33.3 pg 01/04/2023 13:[address] [facility] MCHC 33.4 32.1 - 35.9 gm/dL 01/04/2023 13:[address] [facility] RDW-CV 14.6 <14.7 % 01/04/2023 13:[address] [facility] RDW-SD 47.8 <50.4 fl 01/04/2023 13:[address] [facility] PLT 100(L) 141 - 377 K/cmm 01/04/2023 13:[address] [facility] MPV 10.1 9.5 - 12.7 fl 01/04/2023 13:[address] [facility] Blood VENOUS BLOOD / Unknown Venipuncture / Unknown 01/04/2023 12:38 EST 01/04/2023 12:38 EST us Emigdio Veronica MD HEMATOLOGY & PF4 ORDERAB LES Final Result Performing Organization Address City/State/[facility] Co de Phone Number [facility] [address] [place] [address] documented in this encounter Visit Diagnoses Diagnosis Fatigue, unspecified type- Primary Anticoagulated Long-term (current) use of anticoagulants documented in this encounter Care Teams Corporate Securities Research Analyst Relationship Specialty Start Date End Date Emigdio Veronica MD [address] [place] [phone] PCP - General Internal Medicine - Primary Care 05/22/20 02/21/24 documented as of this encounter
--- OUTSIDE RECORDS SUMMARY | 2024-11-22 16:58 | XMS_ITS | Encounter Summary ---
Author Organization [facility] Address [address] [place] [address] Care Team Providers Care Bulb Grader Name Role Phone Emigdio Veronica MD Primary Care Provider + Izabella Snowden [facility] Unavailable None, Provider Primary Care Provider Gabriel Wei Primary Care Provider Mirna Guerrero Primary Care Provider + Reason for Visit * Reason Onset Date Comments Medications Refill 02/11/2023 Encounter Details Date Type Department Care Team (Late st Contact Info) Description 02/11/2023 Refill [facility] Adult Primary Care - [place] [address] [place] [address] Emigdio Veronica MD [address] [place] [phone] Medications Refill Social History Tobacco [...] Industry 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 Her son moved further away which really upset her. No appetite, no desire to shower States she gets nauseas when she eats. 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 Is not in counseling currently. Has spoken with Erika Marie past. Given phone number to reach back out to her to assist in finding counselor. Has been about a yr since she had a anxiety attack and then had one last night and it scared her. Had been doing better. Discussed that it sounds like since she is not having side effects from Effexor that was started inFebruary that she could talk with merline about increasing it if needed. She agreed with this. No SI. Also gave pt phone number for GI so she could reach out to them as they had not been able to reach her per referral 11/28/22. To Erika Cedeno to f/u with pt. * Telephone Encounter - Emigdio Veronica MD - 02/11/2023 1551 EDT Ideally we would discuss a switch in anti-depressant anti-anxiety medication in a visit as it is a very involved discussion. To simplify as much as possible we have two general paths we can take. She remains at a low dose ofvenlafaxine at 75 mg daily. The ineffective response to venlafaxine may relate to it's dose. It would be reasonable to try an increase venlafaxine potentially up to 150 mg daily to see if this improves her symptoms. It may, it may not. The alternative option is to switch anxiety agents. We would need to taper her off of her venlafaxine to do this, but it could be done in a process we call a cross taper. I can see she was previouslyon lexapro / escitalopram. What was her response to this medication? My recommendation would be follow-up in an OV. If she declines then I would inquire her willingnesson a dose increase in venlafaxine or if she is unwilling to do this to inquire what her response was to lexapro. If it was positive then we could try returning to that medication. * Telephone Encounter - Prema Crane - 02/11/2023 7915 EDT Requested Prescriptions Pending Prescriptions Disp Refills ??? venlafaxine (EFFEXOR-XR) 75 mg XR capsule 30 Capsule 2 Sig: Take 1 Capsule by mouth daily. Patient is calling to state that she does not feel that this medication is working. She states she is having trouble leaving her room and has been having some panic attacks. She is wondering If thereis something else she can try. Prema Crane 02/11/2023 15:42 documented in this encounter Plan of Treatment Upcoming Encounters Date Type Department Care Team (Late st Contact Info) Description 01/04/2025 13:00 EST Office Visit [facility] Ophthalmology - [address] [phone] Gagandeep Rome MD [address] [place] [address], [address] [place] [phone] 02/11/2025 13:30 EDT Telemedicine [facility] Hematology & Oncology - [address] [phone] Dana Padilla MD [address] [facility], [facility], [address] [place] [phone] documented as of this encounter Visit Diagnoses Not on filedocumented in this encounter Additional Health Concerns Infection Onset Date Last Indicated Resolved Time R/O COVID-19 02/23/2023 02/23/2023 02/23/2023 7:15 EDT R/O COVID-19 04/28/2023 04/28/2023 04/29/2023 0:02 EDT R/O COVID-19 09/07/2023 09/07/2023 09/07/2023 22:1 6 EDT documented as of this encounter Care Teams Bulb Grader Relationship Specialty Start Date End Date Emigdio Veronica MD [address] [place] [phone] PCP - General Internal Medicine - Primary Care 05/22/20 02/21/24 None, Provider PCP - General 02/24/24 03/18/24 Gabriel Gandara PA PCP - General 03/19/24 09/11/24 Mirna Guerrero PA [address] [place] [id number] PCP - General 09/12/24 Izabella Snowden LICSW 1 [facility], [address] [place] [phone] Welding Machine Tender 02/21/23 05/03/24 documented as of this encounter
--- OUTSIDE RECORDS SUMMARY | 2024-11-22 16:58 | XMS_ITS | Encounter Summary ---
Author Organization [facility] Address [address] [place] [address] Care Team Providers Care Transaction Advisory Services Manager Name Role Phone Emigdio Veronica MD Primary Care Provider + Reason for Referral * Consult (Urgent) - New Request Specialty Diagnoses / Procedures Referred By Contac t Referred To Contact Orthopedic Surgery Diagnoses Acute pain of right shoulder Arm pain, anterior, right Emigdio Veronica MD Phone: tel: fax: [facility] Upper [facility]remity [facility] [place] [address] [place] [address] Phone: tel: fax: Referral ID Status Reason Start Date Expiration Date Visits Requested Visits Authorized [id number] New Request Specialty Services Required 01/05/2023 1 1 Question Answer Reason for Request: Severe right upper arm and right shoulder pain. Patient reports possible dislocation of right shoulder. Severe pain over right bicep. Concern for possible right biceps, rotator cuff tear vs dislocation * Radiology Services (Routine/Next Available) - Authorization Not Required Specialty Diagnoses / Procedures Referred By Contac t Referred To Contact Diagnoses Arm pain, anterior, right Procedures XR HUMERUS RIGHT Emigdio Veronica MD Phone: tel: fax: [facility] Referral ID Status Reason Start Date Expiration Date Visits Requested Visits Authorized [id number] Authorization Not Required 01/05/2023 1 1 * Radiology Services (Routine/Next Available) - Authorization Not Required Specialty Diagnoses / Procedures Referred By Contac t Referred To Contact Diagnoses Acute pain of right shoulder Procedures XR SHOULDER RIGHT 2 OR MORE VIEWS Emigdio Veronica MD Phone: tel: fax: [facility] Referral ID Status Reason Start Date Expiration Date Visits Requested Visits Authorized [id number] Authorization Not Required 01/05/2023 1 1 Reason for Visit * Reason Comments Shoulder Injury Right; numbness righ t arm; post slip and fall Other Loss of appetite; li ght headed, dizzy and weight loss Encounter Details Date Type Department Care Team (Late st Contact Info) Description 01/05/2023 15:00 EST Office Visit [facility] Adult Primary Care - [address] [place] [address] Emigdio Veronica MD [address] [place] [phone] Acute pain of right shoulder (Primary Dx); Arm pain, anterior, right; Dizziness; MUSA (acute kidney injury) ([facility]); Healthcare maintenance Social History Tobacco Use Types [...] Industry 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 No / Unsure 12/14/2022 1:59 EST documented as of this encounter Last Filed Vital Signs Vital Sign Reading Time Taken Comments Blood Pressure 115/56 01/05/2023 1501 EST Pulse 72 01/05/2023 1501 EST r Temperature 36.7 ??C (98 ??F) 01/05/2023 1501 EST Respiratory Rate 16 01/05/2023 1501 EST Oxygen Saturation - - Inhaled Oxygen Concentration - - Weight 110.2 kg (243 lb) 01/05/2023 1501 EST Height - - Body Mass Index 41.71 12/14/2022 0157 EST documented in this encounter [...] this encounter Patient Instructions * Patient Instructions* Emigdio Veronica MD - 01/05/2023 15:00 EST Quitting smoking Stopping smoking is the [...] medication, and work with a trained counselor. Reduce lasix to 40 mg once daily for the next five days. Monitor weights daily Tobacco Counseling in [facility] offers free counseling services to residents who are ready to cut back or quit using tobacco. Services include: phone coaching (NOW), online tools and support for those who would like to make changes on their own (www.Dejamor), as well as in-person group workshops. Free nicotine replacement therapy is available through all of these resources. To learn more about your options visit www.Poliglota.org or call 9-522-KTTR-NOW ( ). To speak with an in-person tobacco counselor in [facility] call, [phone]. [place] Resident, please visit: [email or web address] I hope you quit smoking. I think it's the best thing you can do for your health. Please call our office if you have any questions. documented in this encounter Ordered Prescriptions Prescription Sig Dispense Quantity Refills Last Filled Start Date End Date traZODone (DESYREL) 100 mg tablet Take 2 Tablets by mouth at bedtime. 180 Tablet 1 01/05/2023 3 documented in this encounter Progress Notes * Emigdio Veronica MD - 01/05/2023 1500 EST Tara Yun is a 62 y.o. female with a PMHx of COPD, decompensated liver cirrhosis, thrombocytopenia, portal vein thrombosis, HUEY, frequent falls, chronic pain syndrome on opiate therapy PRIMARY CARE PROVIDER: Emigdio Veronica CHIEF COMPLAINT: Chief Complaint Patient presents with ??? Shoulder Injury Right; numbness right arm; post slip and fall ??? Other Loss of appetite; light headed, dizzy and weight loss SUBJECTIVE: Tara Yun presents today for an acute visit for several complaints. She reports her most acute complaint is the sudden development of right shoulder and right arm painwith associated right arm numbness. She states she was in her regular state of health until 1 week prior to presentation when she fell while attempting to descend stairs in her home. She reports thatshe lost her balance that she was descending stairs to her lower level of her home but reportedly c aught herself by holding onto a rail adjacent to the stairs with her right arm. She states that temporarily she used her right arm to hold her entire weight she lost balance and felt an immediate popping sensation in her right shoulder. She states that it felt that her right shoulder had dislocated but she states that shortly after the shoulder popped back in. She confirms immediate and persis tent pain in her right shoulder and right upper extremity since this event as well as bruising present over her right bicep and significant swelling across her entire right upper extremity. She now notes pain with right upper extremity movement in all directions. She confirms some sensation of numbness and like tingling over the lateral aspect of her right shoulder. In addition to her right upper extremity concerns she reports frequent episodes of dizziness and nausea since her discharge from the internal medicine service for hypovolemic shock over 3 weeks priorto presentation. She confirms compliance with her previously prescribed diuretic regiment of 100 mgof torsemide daily with 60 mg of Lasix daily. She states she is down roughly 20 pounds from her weight at discharge. We reviewed her most recent BMP results which reflect an acute elevation in her creatinine to 1.2 from a baseline of 1.0. Right shoulder pain, right arm apin, right arm numbness, brusig over right bicep Fell at home one week ago descending stairs, used right arm to brace herself / pull herself up on railing to avoid hitting the floor, full weight of her body pulled by her right arm Severe pain afterwards, felt a pop and a sensation that her shoulder was dislocated. She states it popped back in shortly after Now notiing numbness over lateral aspect of right shoulder Pain with all shoulder motions passive and active, pain on abduction at 30 degress, pain on empty can test, pain on neers, unable to tolrate drop test Ecchomycoses over right upper arm MUSA, dizziness, down 20 pounds, ok with decreasing lasix to 40 mg from 60 mg daily ROS as above Medications and history reviewed. [...] mL (0.083 %) nebulizer solution OBJECTIVE: BP 115/56 (BP Cuff Location: Left arm, BP Patient Position: Sitting, BP Cuff Sizes: Adult, large) Pulse 72 Comment: r Temp 36.7 ??C (98 ??F) Resp 16 Wt (!) 110.2 kg (243 lb) BMI 41.71 kg/m?? Gen: Uncomfortable appearing obese female, NAD HEENT: EOMI, PERRL, oropharynx moist, conjunctiva pink, no scleral injection/ icterus Neck: no cervical lymphadenopathy, no JVD CV: RRR, no murmurs, rubs or gallops Pulm: CTAB, good air movement, no wheezes, rales, or rhonchi Extrem: +1 edema across the entire right upper extremity, warm and well perfused Skin: Evolving ecchymoses over anterior aspect of right upper extremity over right biceps. No rashes or erythema, intact Musk: Normal muscle tone and bulk, gait within normal limits, limited ROM of right shoulder and right upper extremity due to pain. Pain present on both passive and active movements of right shoulder.Patient notes pain with active abduction of right shoulder from 0 to 30 degrees, patient notes painon empty can test, Neer's test and is unable to tolerate a drop test of her right upper extremity and shoulder. No tenderness on palpation of right shoulder bursa, AC joint or cervical spinous processes. Neuro: A&Ox3, CN II through XII grossly intact Recent Labs/Imaging: Reviewed in [facility] ASSESSMENT and PLAN: Tara was seen today for shoulder injury and other. Diagnoses and all orders for this visit: Acute pain of right shoulder, Arm pain, anterior, right: Patient reports a a recent fall in which she braced herself using stair rail with her right arm. She reports an immediate sensation of pain and dislocation of her right shoulder, but states that her shoulder successfully reduced itself backinto position. She notes significant pain in both her right shoulder and right upper extremity since this injury, though she did not present to any acute healthcare facility for evaluation. Musculoskeletal exam of right shoulder and arm today is burks- positive for pain in all directions both passive and active. Nature of injury is unclear at this time and could include a partial versus complete rotator cuff injury, shoulder dislocation with axial nerve injury (patient reports numbness over right upper extremity) and/or biceps muscle injury. We will pursue immediate x-rays for further evaluationand urgent orthopedic consultation. Pending x-ray results patient may require an upper extremity MRI for further evaluation - XR SHOULDER RIGHT 2 OR MORE VIEWS; Future - AMB CONS/FOLLOW UP ORTHOPEDICS - [facility]; Future - XR HUMERUS RIGHT; Future Dizziness, MUSA (acute kidney injury) ([facility]) ([facility]): Symptoms and lab findings likely secondary tointravascular hypovolemia. Patient has a tenuous volume status with repeated admissions over the last 2 years for both hypo and hypervolemia in the setting of liver cirrhosis. -We will reduce Lasix dosage to 40 mg daily from 60 mg daily over the next 7 days. -Encouraged patient to monitor weights closely -Once weights stabilized near her baseline with resolution of her dizziness can consider an alternating dose pattern of Lasix between 40 and 60 mg. Of note patient's current dose instructions are to take 40 mg daily and to take 60 only when weight is elevated above 5 pounds from baseline. Patient states she has been taking 60 mg regardless of her weight results. F/u: As scheduled I spent a total of 38 minutes with this patient today face to face, in chart review and in documentation and 34 minutes of that time was spent on education and counseling for acute right shoulder pain, acute right arm pain, dizziness and MUSA. Some of this note was transcribed with PostHelpers dictating software. While it was proofread, it may still contain unnoticed grammatical or word errors due to incorrect transcribing. Emigdio Veronica MD 01/09/2023 10:21 documented in this encounter Plan of Treatment Upcoming Encounters Date Type Department Care Team (Late st Contact Info) Description 01/04/2025 13:00 EST Office Visit [facility] Ophthalmology - [address] [phone] Gagandeep Rome MD [address] [place] [address] [address] [place] [phone] 02/11/2025 13:30 EDT Telemedicine [facility] Hematology & Oncology - [address] [phone] Dana Padilla MD [address] [place] [address] [address] [place] [phone] Scheduled Referrals Name Type Priority Associated Diagnoses Order Schedule AMB CONS/FOLLOW UP ORTHOPEDICS - [facility] Outpatient Referral Urgent Acute pain of right shoulder Arm pain, anterior, right Expected: 01/07/2023 (Approximate), Expires: 01/05/2024 documented as of this encounter Results * XR HUMERUS RIGHT (01/08/2023 12:00 EST) Anatomical Region Laterality Modality Right Computed Radiogr aphy 01/09/2023 17:4 9 EST Impressions 01/09/2023 17:49 EST FINDINGS / IMPRESSION: Right shoulder 3 views as well as right humerus 2 views show no evidence for dislocation or acute fracture in a background of osteopenia. There are mild degenerative changes in the glenohumeral joint and elbow joint, with moderate to severe degenerative changes in the acromioclavicular joint. Also, with a chronic appearing small osseous fragment likely sequela from remote injury projecting over the soft tissues along the superior aspect of the AC joint. There is mild osseous hypertrophy along the greater and lesser humeral tuberosities, underlying regions of subchondral sclerosis and small subcortical lucencies suggestive of chronic enthesopathic related changes which may be associated with rotator cuff tendinopathy. Please correlate. A broad anterior subacromial enthesophyte is noted. Narrative 01/09/2023 17:49 EST EXAM/TECHNIQUE: 01/08/2023 11:45 AM ??XR HUMERUS RIGHT, XR SHOULDER RIGHT 2 OR MORE VIEWS 2 (accession [id number]), 3 (accession [id number]) views ?? HISTORY: ??Fall one week ago. Braced with right arm. Severe pain over right bicep COMPARISON: None Procedure Note Jordan Manzano MD - 01/09/2023 EXAM/TECHNIQUE: 01/08/2023 11:45 AM XR HUMERUS RIGHT, XR SHOULDER RIGHT 2OR MORE VIEWS 2 (accession [id number]), 3 (accession [id number]) views HISTORY: Fall one week ago. Braced with right arm. Severe pain over rightbicep COMPARISON: None IMPRESSION FINDINGS / IMPRESSION: Right shoulder 3 views as well as right humerus 2 views show no evidencefor dislocation or acute fracture in a background of osteopenia. There aremild degenerative changes in the glenohumeral joint and elbow joint, withmoderate to severe degenerative changes in the acromioclavicular joint.Also, with a chronic appearing small osseous fragment likely sequela fromremote injury projecting over the soft tissues along the superior aspectof the AC joint. There is mild osseous hypertrophy along the greater andlesser humeral tuberosities, underlying regions of subchondral sclerosisand small subcortical lucencies suggestive of chronic enthesopathicrelated changes which may be associated with rotator cuff tendinopathy.Please correlate. A broad anterior subacromial enthesophyte is noted. us Emigdio Veronica MD IM[facility] DIAGNOSTIC IMAGING O RDERABLES Final Result * XR SHOULDER RIGHT 2 OR MORE VIEWS (01/08/2023 12:00 EST) Anatomical Region Laterality Modality Right Computed Radiogr aphy 01/09/2023 17:4 9 EST Impressions 01/09/2023 17:49 EST FINDINGS / IMPRESSION: Right shoulder 3 views as well as right humerus 2 views show no evidence for dislocation or acute fracture in a background of osteopenia. There are mild degenerative changes in the glenohumeral joint and elbow joint, with moderate to severe degenerative changes in the acromioclavicular joint. Also, with a chronic appearing small osseous fragment likely sequela from remote injury projecting over the soft tissues along the superior aspect of the AC joint. There is mild osseous hypertrophy along the greater and lesser humeral tuberosities, underlying regions of subchondral sclerosis and small subcortical lucencies suggestive of chronic enthesopathic related changes which may be associated with rotator cuff tendinopathy. Please correlate. A broad anterior subacromial enthesophyte is noted. Narrative 01/09/2023 17:49 EST EXAM/TECHNIQUE: 01/08/2023 11:45 AM ??XR HUMERUS RIGHT, XR SHOULDER RIGHT 2 OR MORE VIEWS 2 (accession [id number]), 3 (accession [id number]) views ?? HISTORY: ??Fall one week ago. Braced with right arm. Severe pain over right bicep COMPARISON: None Procedure Note Jordan Manzano MD - 01/09/2023 EXAM/TECHNIQUE: 01/08/2023 11:45 AM XR HUMERUS RIGHT, XR SHOULDER RIGHT 2OR MORE VIEWS 2 (accession [id number]), 3 (accession [id number]) views HISTORY: Fall one week ago. Braced with right arm. Severe pain over rightbicep COMPARISON: None IMPRESSION FINDINGS / IMPRESSION: Right shoulder 3 views as well as right humerus 2 views show no evidencefor dislocation or acute fracture in a background of osteopenia. There aremild degenerative changes in the glenohumeral joint and elbow joint, withmoderate to severe degenerative changes in the acromioclavicular joint.Also, with a chronic appearing small osseous fragment likely sequela fromremote injury projecting over the soft tissues along the superior aspectof the AC joint. There is mild osseous hypertrophy along the greater andlesser humeral tuberosities, underlying regions of subchondral sclerosisand small subcortical lucencies suggestive of chronic enthesopathicrelated changes which may be associated with rotator cuff tendinopathy.Please correlate. A broad anterior subacromial enthesophyte is noted. Emigdio Veronica MD IMG DIAGNOSTIC IMAGING O RDERABLES Final Result documented in this encounter Visit Diagnoses Diagnosis Acute pain of right shoulder- Primary Arm pain, anterior, right Dizziness Dizziness and giddiness MUSA (acute kidney injury) ([facility]) Acute kidney failure, unspecified Healthcare maintenance Routine general medical examination at a health care facility Acute pain of right shoulder Arm pain, anterior, right documented in this encounter Discontinued Medications Medication Sig Discontinue Reason Start Date End Da te traZODone (DESYREL) 100 mg tablet Take 2 Tablets by mouth at bedtime. Reorder 08/26/2022 01/05/2023 documented as of this encounter Care Teams Transaction Advisory Services Manager Relationship Specialty Start Date End Date Emigdio Veronica MD [address] [place] [phone] PCP - General Internal Medicine - Primary Care 05/22/20 02/21/24 documented as of this encounter
--- OUTSIDE RECORDS SUMMARY | 2024-11-22 16:58 | XMS_ITS | Encounter Summary ---
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 Not [...] Office Visit [facility] Ophthalmology - [address] [phone] Gagandeep Rome MD [address] [facility], [address] [place] [phone] 02/11/2025 13:30 EDT Telemedicine [facility] Hematology & Oncology - [facility] [address] [place], [place] [phone] Dana Padilla MD [address] [facility] [address] [place] [phone] documented as of this encounter Visit Diagnoses Not on filedocumented in this encounter Care Teams Spd Manager Relationship Specialty Start Date End Date Emigdio Veronica MD [address] [place] [phone] PCP - General Internal Medicine - Primary Care 05/22/20 02/21/24 documented as of this encounter
--- OUTSIDE RECORDS SUMMARY | 2024-11-22 16:58 | XMS_ITS | Encounter Summary ---
Author Organization [facility] Address [address] [place] [address] Care Team Providers Care Ham Boner Name Role Phone Emigdio Veronica MD Primary Care Provider + Reason for Referral * PT/OT/ST (Routine/Next Available) - Closed Specialty Diagnoses / Procedures [facility] Referred To Contact Rehab Therapies Diagnoses Right arm pain Acute pain of right shoulder Emigdio Veronica MD Phone: tel: fax: [facility] Rehabilitation Therapy - Medical Office Building [address] [place] [phone] Phone: tel: fax: Referral ID Status Reason Start Date Expiration Date V isits Requested Visits Authorized [id number] Closed Specialty Services Required 01/12/2023 1 1 Question Answer Reason for Request: Right arm, right shoulder pain following fall two weeks prior Comments This referral may serve as a referral to occupational therapy if appropriate. 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 Daily Max: 15 mg 84 Tablet 01/19/2023 02/09/2023 documented in this encounter Miscellaneous Notes * Telephone Encounter - Emigdio Veronica MD - 01/12/2023 1016 EST Refill signed for 01/19 PT referral placed. * Telephone Encounter - Sharon Joseph RN - 01/12/2023 0848 EST Pt called back The patient indicates understanding of these issues and agrees with the plan. Pt states she is fine with PT at [facility] pended order Pt also requested her refill that is due 01/19/23 pt does not need it until she is due but wanted to put in her request now so she doesn't have to call later. Chronic controlled medication yes Last med check visit 01/05/23 Future visit scheduled Yes 01/21/23 Vpms check Yes 09/17/23 Prescription agreement Yes 06/25/23 Patient due for refill yes on 01/19/23 Is there a plan for tapering of medication noted in chart? unknown * Telephone Encounter - Pam Ivey RN - 01/11/2023 1234 EST Phone call to Pt. No answer and unable to LVM. Sent MCM relaying message. Waiting for response back. * Telephone Encounter - Pam Ivey RN - 01/11/2023 1026 EST Phone call to Pt. No answer and no voicemail set up. Will try again later. * Telephone Encounter - Emigdio Veronica MD - 01/11/2023 1003 EST X-rays reveal no evidence of fracture or dislocation. They do demonstrate various findings consistent with degenerative disease in the shoulder and bone thinning in the humerus. There was evidence of mild bone changes around the humeral tuberosities that radiology believes could connect with a recent history of a rotator cuff injury. The x-rays are reassuring for no severe skeletal injury, but our suspicion remains for for muscle injury. In addition to orthopedic evaluation I am also going to recommend we place a physical therapyevaluation as a next step. I can place that at [facility] or if she has a preferred PT office outside of [facility] I can place it there. * Telephone Encounter - Zully Guerrier - 01/10/2023 1528 EST Pt calling to follow up on results * Telephone Encounter - Noemi Hall - 01/10/2023 1401 EST Reason for Call: Diagnostic Imaging Report Summary/Symptoms: patient had xrays done over the weekend but has not heard back regarding the results and is concerned Onset and Duration: na Does the patient have a computer, laptop or smart phone with high speed & video capability? N/A If so, would they be interested in doing a video visit via [employer]? N/A Appointment Offered? No Noeim Hall 01/10/2023 14:01 documented in this encounter Plan of Treatment Upcoming Encounters Date Type Department Care Team (Late st Contact Info) Description 01/04/2025 13:00 EST Office Visit [facility] Ophthalmology - [address] [phone] Gagandeep Rome MD [address] [place] [address] [address] [place] [phone] 02/11/2025 13:30 EDT Telemedicine [facility] Hematology & Oncology [address] [phone] Dana Padilla MD [address] [place] [address], [facility] [address] [place] [phone] Scheduled Referrals Name Type Priority Associated Diagnoses Order Schedule AMB CONS/FOLLOW UP PHYSICAL THERAPY Outpatient Referral Routine/Next Available Right arm pain Acute pain of right shoulder Expected: 01/19/2023 (Approximate), Expires: 01/12/2024 documented as of this encounter Visit Diagnoses Diagnosis Right arm pain- Primary Pain in limb Acute pain of right shoulder documented in this encounter Discontinued Medications Medication Sig Discontinue Reason Start Date End Da te oxyCODONE (ROXICODONE) 5 mg immediate release tablet Take 1 Tablet by mouth 3 times daily as needed for up to 28 days for Pain. Daily Max: 15 mg Reorder 12/22/2022 01/12/2023 documented as of this encounter Care Teams Ham Boner Relationship Specialty Start Date End Date Emigdio Veronica MD [address] [place] [phone] PCP - General Internal Medicine - Primary Care 05/22/20 02/21/24 documented as of this encounter
--- OUTSIDE RECORDS SUMMARY | 2024-11-22 16:58 | XMS_ITS | Encounter Summary ---
Author Organization [facility] Address [address] [place] [address] Care Team Providers Care Endoscopy Tech Name Role Phone Emigdio Veronica MD Primary Care Provider + Izabella Snowden [facility] None, Provider Primary Care Provider Gabriel Wei Primary Care Provider Mirna Guerrero Primary Care Provider + Reason for Visit * Reason Comments Med Change Request Encounter Details Date Type Department Care Team (Late st Contact Info) Description 01/26/2023 [facility] Adult Primary Care - [place] [address] [place] [address] Emigdio Veronica MD [address] [place] [phone] Med Change Request Social History [...] Industry 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 2838 mL 1 01/27/2023 documented in this encounter Plan of Treatment Upcoming Encounters Date Type Department Care Team (Late st Contact Info) Description 01/04/2025 13:00 EST Office Visit [facility] Ophthalmology [address] [phone] Gagandeep Rome MD [address] [place] [address], [facility] [address] [place] [phone] 02/11/2025 13:30 EDT Telemedicine [facility] Hematology & Oncology [address] [phone] Dana Padilla MD [address] [place] [address], [facility] [address] [place] [phone] documented as of this encounter Visit Diagnoses Not on filedocumented in this encounter Discontinued Medications Medication Sig Discontinue Reason Start Date End Da te lactulose (CHRONULAC) 10 gram/15 mL solution TAKE 15-30ML BY MOUTH DAILY NEEDED (CONSTIPATION. TARGET GOAL OF TWO BOWEL MOVEMENTS DAILY). 01/20/2023 01/27/2023 documented as of this encounter Additional Health Concerns Infection Onset Date Last Indicated Resolved Time R/O COVID-19 02/23/2023 02/23/2023 02/23/2023 7:15 EDT R/O COVID-19 04/28/2023 04/28/2023 04/29/2023 0:02 EDT R/O COVID-19 09/07/2023 09/07/2023 09/07/2023 22:1 6 EDT documented as of this encounter Care Teams Endoscopy Tech Relationship Specialty Start Date End Date Emigdio Veronica MD [address] [place] [phone] PCP - General Internal Medicine - Primary Care 05/22/20 02/21/24 None, Provider PCP - General 02/24/24 03/18/24 Gabriel Gandara PA PCP - General 03/19/24 09/11/24 Mirna Guerrero PA [address] [place] [address] PCP - General 09/12/24 Izabella Snowden LICSW 1 [facility], [address] [place] [phone] [employer] 02/21/23 05/03/24 documented as of this encounter
--- OUTSIDE RECORDS SUMMARY | 2024-11-22 16:58 | XMS_ITS | Encounter Summary ---
Author Organization [facility] Address [address] [place] [address] Care Team Providers Care Kitchen Lead Name Role Phone Emigdio Veronica MD Primary Care Provider + Reason for Visit * Reason Comments Follow-up * Consult (Routine/Next Available) - Receiving Office to Obtain Authorization Specialty Diagnoses / Procedures Referred By Serene huitron Referred To Contact Hematology Diagnoses Portal vein thrombosis Lazaro Mejia MD [address] [place] [address] Phone: tel: fax: [facility] Hematology & Oncology [address] [address] Phone: tel: fax: Referral ID Status Reason Start Date Expiration Date Visits Requested Visits Authorized [id number] Receiving Office to Obtain Authorization Specialty Services Required 3 1 1 Encounter Details Date Type Department Care Team (Late st Contact Info) Description 02/07/2023 11:30 EDT Office Visit [facility] Hematology & Oncology [address] [phone] Dana Padilla MD [address] [facility], [facility], [address] [place] [phone] Secondary hypercoagulable state (HCC-CMS) (Primary Dx); Superior mesenteric vein thrombosis (HCC-CMS); Epigastric pain Social History Tobacco Use Types Packs/Day Years [...] Industry 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 No / Unsure 02/07/2023 12:13 EDT documented as of this encounter Last Filed Vital Signs Vital Sign Reading Time Taken Comments Blood Pressure 130/67 02/07/2023 1126 EDT Pulse 85 02/07/2023 1126 EDT Temperature 36.4 ??C (97.5 ??F) 02/07/2023 1 126 EDT Respiratory Rate 18 02/07/2023 1126 EDT Oxygen Saturation 97% 02/07/2023 112 6 EDT pt on o2 at home, out of breath walking to exam room pt give 3 liters of o2 for a couple minutes Inhaled Oxygen Concentration - - Weight 108.1 kg (238 lb 6.4 oz) 02/07/2023 1126 EDT Height - - Body Mass Index 40.92 12/14/2022 0157 EST documented in this encounter [...] of Assessment Author No 06/16/2022 0:00 EDT Solia Murphy RN documented as of this encounter Mental Status * Because of a physical, mental, or emotional condition, do you have serious difficulty concentrating, remembering, or making decisions? (5 years old or older) Answer Entry Date Author No 06/16/2022 0:00 EDT Soila Murphy RN documented in this encounter Progress Notes * Dana Padilla MD - 02/07/2023 1130 EDT Thrombosis & Hemostasis Program (THP) Follow Up Visit Date of Service: 02/07/2023 CC: No chief complaint on file. 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 Apixaban was held previously due to bleeding but she had extension of portal vein thrombosis in November 2022 and was placed on lovenox 60 mg/d by the heme consult team. She has had no evidence of bleeding at this time but presents today with days of abd pain, n/v worrisome for potential progression of superior mesenteric vein thrombosis. I worry about bleeding with full intensity anticoagulation in the setting of cirrhosis and thrombocytopenia, and am hoping she does not have this. Mild thrombocytopenia and leukopenia due to hypersplenism. Plan: - I am sending her to the emergency dept for evaluation of her acute abdominal pain, and called there to alert them. If workup negative for thrombosis extension, continue lovenox 60 mg/d - Return in 4 months with Lesly Hu. She should have repeat CBC if this hasn't been done forother reasons by that time. Please contact my office with questions/concerns. Problem [...] then daily. -01-13-22: EGD NORMAL ([place]) ??? Secondary hypercoagulable state (HCC-CMS) (HCC) PVT 2020 witih acquired deficiencies of anticoagulant [...] for DVT. Apixaban stopped due to bleeding risk - Bilat LE U/S for surveillance May 2022 also neg for deep vein thrombosis. -Nov 2022: extension of PVT to [facility] thrombosis, resumed lovenox 60 mg/d for terminal manager anticoagulation ??? Other cirrhosis of liver (HCC) -NAFLD related cirrhosis with history of decompensation, chronic portal htn, hepatic encephalopathy, small esophageal varices on EGD in 2018, thrombocytopenia/hypersplenism, portal gastropathy -s/p partial splenic embolization (09/28/21) -portal vein thrombosis -Hep C Past provider: Dr. Ijeoma Smith, GI Department in [facility] for long-standing decompensated liver cirrhosis ??? Right foot pain ??? History of bleeding ulcers ??? Superior mesenteric vein thrombosis (HCC-CMS) (HCC) ??? Cirrhosis (HCC-CMS) (HCC) ??? Thrombocytopenia (HCC) Took lusutrombopag 3 mg [...] ??? Fluid overload ??? Frequent falls ??? COPD (chronic obstructive pulmonary disease) (HCC-CMS) (HCC) ??? Left ureteral stone ??? HUEY (obstructive sleep apnea) ??? Partial small bowel obstruction (HCC-CMS) (HCC) ??? Obesity, Class II, BMI 35-39.9 Lost [...] Dr Amelia Tijerina and notes from [facility] patient misconstrued information to several providers about multiple concurrent opiate prescription. -IR embolization 09/28/21 for thrombocytopenia. Counts raised from 30s to 200K ??? Abdominal wall hernia ??? Allergic rhinitis ??? Pancytopenia (HCC) -bone marrow biopsy at [facility] in 2013: maturing trilineage hematopoiesis with no underlying hematopoietic abnormalities ??? Mild persistent asthma without complication ??? Nephrolithiasis Added automatically from request for surgery [id number] HPI: Pt presented in Nov 2022 with extension of prior portal vein thrombosis into the superior mesenteric vein after her anticoagulation had been held in the past due to GI bleeding. She was treated with lovenox 60 mg/d for this. A couple of days ago she had worsening upper abd pain. It feels like someone punched her in the epigastrium and is worsening. After discharge from hospital in nov she was havi ng only intermittent milder pain. Pain is worsened with eating or vomiting and she feels bloated. She has no appetite and has been losing weight. Her mouth is very dry so she drinks more water than she is supposed to. She has had vomiting of liquid material and this exacerbates her pain. This started . Yesterday she did note some BRBPR on the TP and she had black stool. She also has a cold which she has had over a month. COVID self test neg Social History: Patient reports that she has been smoking cigarettes. She has a 8.75 pack-year smoking history. Shehas never used smokeless tobacco. She reports that she does not drink alcohol and does not use drugs. Social History Social History Narrative Rents a room from friends in [place] and lives there with her dog. She is disabled. 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 albuterol [...] sulfa (sulfonamide antibiotics), tylenol [acetaminophen], flagyl [metronidazole], aspirin, injectafer [ferric carboxymaltose], lyrica [pregabalin], prochlorperazine, and reglan [metoclopramide hcl]. Physical Exam: Vitals: 02/07/23 1126 BP: 130/67 Pulse: 85 Resp: 18 Temp: 36.4 ??C (97.5 ??F) TempSrc: Skin SpO2: 97% Weight: (!) 108.1 kg (238 lb 6.4 oz) Estimated body mass index is 40.92 kg/m?? as calculated from the following: Height as of 12/14/22: 162.6 cm (64). Weight as of this encounter: 108.1 kg (238 lb 6.4 oz). Wt Readings from Last 3 Encounters: 02/07/23 (!) 108.1 kg (238 lb 6.4 oz) 01/27/23 (!) 103.9 kg (229 lb) 01/21/23 (!) 104.1 kg (229 lb 9.6 oz) BMI Readings from Last 3 Encounters: 01/27/23 39.31 kg/m?? 01/21/23 39.41 kg/m?? 01/05/23 41.71 kg/m?? ] Gen: Alert and oriented x3. No distress. Pulm: Clear to auscultation, No wheeze, good air movement throughout CV: Regular rate and rhythm, no murmurs, no carotid bruits Abd: Soft, epigastric tenderness that caused her distress. Bowel sounds soft. non-distended, guarding but no rebound Ext: Right: No lower extremity edema, hemosiderin deposits, petechiae, varicose veins. Left: No lower extremity edema, hemosiderin deposits, petechiae, varicose veins. Pulses: 2+ and symmetric Labs: Complete Blood Count Lab Results Component Value Date WBC 2.84 (L) 02/04/2023 WBC 3.17 (L) 01/24/2023 WBC 3.10 (L) 01/04/2023 RBC 4.08 02/04/2023 HGB 12.4 02/04/2023 HGB 12.6 01/24/2023 HGB 13.2 01/04/2023 HCT 37.1 02/04/2023 MCV 91 02/04/2023 PLT 78 (L) 02/04/2023 PLT 101 (L) 01/24/2023 PLT 100 (L) 01/04/2023 MPV 11.2 02/04/2023 RDWCV 15.4 (H) 02/04/2023 Lab Results Component Value Date DIFFTYPE Auto 12/14/2022 NEUTROABS 2.83 12/14/2022 ABSBAND 0.02 04/23/2019 LYMPHSABS 0.44 (L) 12/14/2022 MONOSABS 0.56 12/14/2022 EOSABS 0.06 12/14/2022 BASOSABS 0.02 08/29/2019 MYELOABS 0.02 10/21/2018 Anemia Workup (if applicable) Lab Results Component Value Date IRON 40 05/08/2022 TIBC 427 05/08/2022 FERRITIN 129 05/08/2022 FOLATE 7.5 02/11/2022 [id number] 386 07/28/2022 Chemistries Lab Results Component Value Date NA 139 01/24/2023 K 4.3 01/24/2023 CL 103 01/24/2023 CO2 28 01/24/2023 BUN 12 01/24/2023 CREATININE 1.10 (H) 01/24/2023 CALCGFR 57 (L) 01/24/2023 CALCIUM 8.8 01/24/2023 CALCCA 9.2 07/28/2021 MG 1.9 12/18/2022 LDH 320 06/28/2019 ALKPHOS 94 01/24/2023 AST 26 01/24/2023 ALT 21 01/24/2023 GGT 47 (H) 11/09/2018 CONJBILI 0.0 12/14/2022 UNCONJBILI 0.2 12/14/2022 BILIRUBIN Neg 09/20/2017 TBIL 0.7 01/24/2023 TP 6.5 01/24/2023 LABALBU 3.6 01/24/2023 AGRATIO 1.2 01/24/2023 LIPASE 58 09/20/2022 Cardiovascular No results found for: SCRP Lab Results Component Value Date CHOL 143 04/16/2022 LDLBASE 72 04/16/2022 CHOLHDL 2.4 04/16/2022 HDL 59 04/16/2022 TRIG 59 04/16/2022 Lab Results Component Value Date HOMOCYSTEINE 15.9 (H) 09/28/2022 TROPONINI <0.034 12/14/2022 Thrombosis Panel Lab Results Component Value Date ABO O 09/20/2022 PROTIME 13.5 (H) 01/24/2023 INR 1.2 (H) 01/24/2023 INR 1.2 (H) 01/04/2023 PTT 32 05/07/2022 DDIMER 1,494 (H) 12/14/2022 DDIMER 1,538 (H) 02/12/2022 FACTVIIIFA8 188 (H) 10/27/2021 ANTITHROM 69 (L) 10/27/2021 PROTCCLOT 59 (L) 10/27/2021 PROTSCLOT 96 10/27/2021 DRVVT 38.5 10/27/2021 SCT 39.6 10/27/2021 Imaging: US LOWER VENOUS DUPLEX Interpretation Summary ??? No evidence of deep or superficial venous thrombosis in the right lower extremity. ??? No evidence of deep or superficial venous thrombosis in the left lower extremity. Results have been documented within the past 5 years for the following orders CT ABDOMEN PELVIS W CONTRAST Narrative CT ABDOMEN PELVIS W CONTRAST 12/14/2022 5:15 AM Signs and Symptoms/Comments: right sided abd/chest/shoulder; Peritonitis or perforation suspected; right sided abd/chest/shoulder Technique: CT of the abdomen and pelvis was performed following the administration intravenous contrast; coronal and sagittal multiplanar reconstructions generated. Comparison: PET/CT 12/07/2022. CTA abdomen pelvis 09/20/2022. Findings: Lower chest: Please see report from accompanying chest CT. Hepatobiliary: Cirrhotic configuration of the liver. No suspicious hepatic lesion. Stable mild intrahepatic and extrahepatic biliary ductal dilatation. Prior cholecystectomy. Spleen, pancreas, adrenal glands: Unchanged splenomegaly with a chronic splenic infarct, status post coil embolization. No pancreatic ductal dilatation or fat stranding. Stable thickening of the leftadrenal gland. Kidneys, ureters, bladder: Kidneys enhance normally and symmetrically. No hydroureteronephrosis or urinary tract calculi. Bladder is distended to the level of the iliac crest. Uterus, ovaries: Prior hysterectomy. No adnexal mass. Bowel: No obstruction or acute inflammatory changes. Formed stool is present throughout the colon. Prior appendectomy. Peritoneal cavity / Subperitoneal space: No free fluid or free air. Lymphovascular: Redemonstrated extensive chronic portal vein thrombosis involving the splenic vein,main portal vein, and left portal vein, with new involvement of the superior mesenteric vein (coronal 111) compared to August 2022. Systemic collaterals are noted. No pathologically enlarged lymph nodes. Stable nonenlarged external iliac lymph node measuring 7 mm, which was shown to be hypermetabolic on comparison PET CT. Abdominal wall: No bowel-containing hernias. Prior right ventral hernia repair with mesh. There is skin thickening and fat stranding in the lower panniculus. Sequela of subcutaneous fat necrosis in the bilateral gluteal region. Musculoskeletal: Multilevel degenerative disc disease and facet arthropathy. Unchanged mild anterior wedging of lower thoracic vertebra. No acute abnormalities or suspicious lesions. Auto Camp Attendant: No additional findings. Impression 1. No acute abnormality in the abdomen or pelvis. 2. Extensive chronic portal vein thrombosis with new involvement of the superior mesenteric vein compared to August 2022. 3. Cirrhotic configuration of the liver. 4. Splenomegaly with chronic splenic infarct, status post coil embolization. 5. Prior hysterectomy and cholecystectomy. 6. Unchanged small left adrenal nodule and right external iliac lymph node, both shown to be hypermetabolic on recent comparison PET CT. Please see that report for management recommendations. I have personally reviewed the images and the above interpretation and agree with the findings. TRANSTHORACIC ECHO (TTE) COMPLETE Interpretation Summary ??? [...] chart information, and time composing this note. I spent 5 min completing the note on 02/09/23. Dana Padilla MD, MSc teacher education instructor Director, Thrombosis and Hemostasis Program CC: Emigdio Mejia documented in this encounter Plan of Treatment Upcoming Encounters Date Type Department Care Team (Late st Contact Info) Description 01/04/2025 13:00 EST Office Visit [facility] Ophthalmology - [address] [phone] Gagandeep Rome MD [address] [place] [address], [address] [place] [phone] 02/11/2025 13:30 EDT Telemedicine [facility] Hematology & Oncology - [address] [phone] Dana Padilla MD [address] [place] [address], [facility] 2 [place] [phone] documented as of this encounter Visit Diagnoses Diagnosis Secondary hypercoagulable state (HCC-CMS)- Primary Secondary hypercoagulable state Superior mesenteric vein thrombosis (HCC-CMS) Acute vascular insufficiency of intestine Epigastric pain Abdominal pain, epigastric documented in this encounter Discontinued Medications Medication Sig Discontinue Reason Start Date End Da te oxyCODONE (ROXICODONE) 5 mg immediate release tablet Take 1 Tablet by mouth 3 times daily as needed for Pain. Daily Max: 15 mg Therapy completed 12/18/2022 02/07/2023 ferrous sulfate 324 mg (65 mg iron) tablet,delayed release (DR/EC) Take 1 Tablet by mouth every 48 hours. Therapy completed 11/02/2022 02/07/2023 documented as of this encounter Care Teams Kitchen Lead Relationship Specialty Start Date End Date Emigdio Veronica MD [address] [place] [phone] PCP - General Internal Medicine - Primary Care 05/22/20 02/21/24 documented as of this encounter
--- OUTSIDE RECORDS SUMMARY | 2024-11-22 16:58 | XMS_ITS | Encounter Summary ---
Author Organization [facility] Address [address] [place] [address] Care Team Providers Care Track Service Person Name Role Phone Emigdio Veronica MD Primary Care Provider + Reason for Visit * Reason Onset Date Comments Appointment Related 01/14/2023 Encounter Details Date Type Department Care Team (Late st Contact Info) Description 01/14/2023 Telephone [facility] Hematology & Oncology - [facility] [address] [place] [address] Dana Padilla MD [address] 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 (5 years old or older) Answer Date of Assessment Author No 06/16/2022 0:00 EDSoila Karimi RN * Because of a physical, mental, [...] EDSoila Karimi RN documented in this encounter Miscellaneous Notes * Telephone Encounter - MikiJuliet - 01/14/2023 1551 EST Spoke to Tara. She has confirmed her follow up appt with Dr. Padilla on 02/07 at 11:30am. documented in this encounter Plan of Treatment Upcoming Encounters Date Type Department Care Team (Late st Contact Info) Description 01/04/2025 13:00 EST Office Visit [facility] Ophthalmology - [address] [phone] Gagandeep Rome MD [address] [place] [address] [address] [place] [phone] 02/11/2025 13:[address] [facility] Hematology & Oncology - [address] [phone] Dana Padilla MD [address] [place] [address], [facility] [address] [place] [phone] documented as of this encounter Visit Diagnoses Not on filedocumented in this encounter Care Teams Track Service Person Relationship Specialty Start Date End Date Emigdio Veronica MD [address] [place] [phone] PCP - General Internal Medicine - Primary Care 05/22/20 02/21/24 documented as of this encounter
--- OUTSIDE RECORDS SUMMARY | 2024-11-22 16:58 | XMS_ITS | Encounter Summary ---
Author Organization [facility] Address [address] [place] [address] Care Team Providers Care Spooler Rubber Strand Name Role Phone Emigdio Veronica MD Primary Care Provider + Reason for Referral * Radiology Services (Routine/Next Available) - Authorization Not Required Specialty Diagnoses / Procedures Referred By Contac t Referred To Contact Diagnoses Arm pain, anterior, right Procedures XR HUMERUS RIGHT Emigdio Veronica MD Phone: tel: fax: [facility] Referral ID Status Reason Start Date Expiration Date Visits Requested Visits Authorized [id number] Authorization Not Required 01/05/2023 1 1 * Radiology Services (Routine/Next Available) - Authorization Not Required Specialty Diagnoses / Procedures Referred By Contac t Referred To Contact Diagnoses Acute pain of right shoulder Procedures XR SHOULDER RIGHT 2 OR MORE VIEWS Emigdio Veronica MD Phone: tel: fax: [facility] Referral ID Status Reason Start Date Expiration Date Visits Requested Visits Authorized [id number] Authorization Not Required 01/05/2023 1 1 Reason for Visit * Radiology Services (Routine/Next Available) - Authorization Not Required Specialty Diagnoses / Procedures Referred By Contac t Referred To Contact Diagnoses Arm pain, anterior, right Procedures XR HUMERUS RIGHT Emigdio Veronica MD Phone: tel: fax: [facility] Referral ID Status Reason Start Date Expiration Date Visits Requested Visits Authorized [id number] Authorization Not Required 01/05/2023 1 1 Encounter Details Date Type Department Care Team (Latest Contact Info) Description 01/08/2023 11:41 EST - 01/08/2023 23:59 EST Hospital Encounter [facility] [address] [place] [address] Acute pain of right shoulder; Arm pain, anterior, right Discharge Disposition: Home or Self Care Social [...] 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 50 g 1 06/25/2022 INCRUSE ELLIPTA 62.5 mcg/actuationIndi cations:Chronic obstructive pulmonary disease, unspecified COPD type (HCC-CMS) INHALE 1 PUFF BY MOUTH DIRECTED DAILY 30 Each 06/23/2022 naloxone (NARCAN) 4 mg/actuation nasal spray 0.1 [...] needed for Wheezing. 1 Inhaler 04/13/2021 3 chlorzoxazone (PARAFON FORTE) 500 mg tablet TAKE 1 TABLET BY MOUTH THREE TIMES A DAY NEEDED FOR MUSCLE SPASMS 90 Tablet 1 11/09/2022 3 enoxaparin (LOVENOX) 60 mg/0.6 mL injection Inject 60 mg into the skin daily. 50 mL 3 12/19/2022 3 ferrous sulfate 324 mg (65 mg iron) tablet,delayed release (DR/EC) Take 1 Tablet by mouth every 48 hours. 30 Tablet 3 11/02/2022 3 fluticasone propionate (FLOVENT DISKUS) 100 mcg/actuation [...] PER EYE 5 mL 3 10/12/2022 3 lactulose (CHRONULAC) 10 gram/15 mL solution TAKE 15-30ML BY MOUTH DAILY NEEDED (CONSTIPATION. TARGET GOAL OF TWO BOWEL MOVEMENTS DAILY). 900 mL 1 12/27/2022 3 levothyroxine (SYNTHROID) 25 mcg tablet Take [...] NEEDED FOR NAUSEA 30 Tablet 1 12/30/2022 3 oxyCODONE (ROXICODONE) 5 mg immediate release tablet Take 1 Tablet by mouth 3 times daily as needed for up to 28 days for Pain. Daily Max: 15 mg 70 Tablet 12/22/2022 3 oxyCODONE (ROXICODONE) 5 mg immediate release tablet Take 1 Tablet by mouth 3 times daily as needed for Pain. Daily Max: 15 mg 10 Tablet 12/18/2022 3 pantoprazole (PROTONIX) 40 mg tablet Take [...] 12/23/2022 3 documented as of this encounter Discharge Disposition Disposition Code Departure Means Destination Home or Self Care documented in this encounter Plan of Treatment Upcoming Encounters Date Type Department Care Team (Late st Contact Info) Description 01/04/2025 13:00 EST Office Visit [facility] Ophthalmology - [address] [address] Gagandeep Rome MD 111 [facility], [address] [place] [phone] 02/11/2025 13:30 EDT Telemedicine [facility] Center Hematology & Oncology - [facility] [address] [place], [place] [phone] Dana Padilla MD 111 [facility], [facility] [address] [place] [address] documented as of this encounter Procedures Procedure Name Priority Date/Time Associated Diagnosis Comments XR SHOULDER RIGHT 2 OR MORE VIEWS Routine 01/08/2023 12:00 EST Acute pain of right shoulder XR HUMERUS RIGHT Routine 01/08/2023 12:0 0 EST Arm pain, anterior, right documented in this encounter Results * XR HUMERUS RIGHT [...] RIGHT 2 OR MORE VIEWS 2 (accession [id number]), 3 (accession [id number]) views ?? HISTORY: ??Fall one week ago. Braced with right arm. Severe pain over right bicep COMPARISON: None Procedure Note Jordan Manzano MD - 01/09/2023 EXAM/TECHNIQUE: 01/08/2023 11:45 AM XR HUMERUS RIGHT, XR SHOULDER RIGHT 2OR MORE VIEWS 2 (accession [id number]), 3 (accession [id number]) views HISTORY: Fall one week ago. Braced [...] RIGHT 2 OR MORE VIEWS 2 (accession [id number]), 3 (accession [id number]) views ?? HISTORY: ??Fall one week ago. Braced with right arm. Severe pain over right bicep COMPARISON: None Procedure Note Jordan Manzano MD - 01/09/2023 EXAM/TECHNIQUE: 01/08/2023 11:45 AM XR HUMERUS RIGHT, XR SHOULDER RIGHT 2OR MORE VIEWS 2 (accession [id number]), 3 (accession [id number]) views HISTORY: Fall one week ago. Braced [...] Visit Diagnoses Diagnosis Acute pain of right shoulder Arm pain, anterior, right documented in this encounter Care Teams Spooler Rubber Strand Relationship Specialty Start Date End Date Emigdio Veronica MD [address] [place] [phone] PCP - General Internal Medicine - Primary Care 05/22/20 02/21/24 documented as of this encounter
--- OUTSIDE RECORDS SUMMARY | 2024-11-22 16:58 | XMS_ITS | Encounter Summary ---
Author Organization [facility] Address [address] [place] [address] Care Team Providers Care Rubber Moulding Machine Operator Name Role Phone Emigdio Veronica MD Primary Care Provider + Izabella Snowden [facility] Unavailable [phone] Reason for Visit * Reason Onset Date Comments Medication Questions 02/08/2023 Encounter Details Date Type Department Care Team (Late st Contact Info) Description 02/08/2023 Telephone [facility] Hematology & Oncology - [address] [phone] Dana Padilla MD 111 [facility], [facility] [address] [place] [address] Medication Questions Social History Tobacco Use Types Packs/Day Years [...] 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 Patient states she was not advised if she should discontinue her blood thinners. Please call back to discuss. documented in this encounter Plan of Treatment Upcoming Encounters Date Type Department Care Team (Late st Contact Info) Description 01/04/2025 13:00 EST Office Visit [facility] Ophthalmology - [address] [phone] Gagandeep Rome MD [address] [place] [address], [facility] [address] [place] [phone] 02/11/2025 13:30 EDT Telemedicine [facility] Hematology & Oncology [address] [phone] Dana Padilla MD [address] [place] [address], [facility] [address] [place] [address] documented as of this encounter Visit Diagnoses Not on filedocumented in this encounter Additional Health Concerns Infection Onset Date Last Indicated Resolved Time R/O COVID-19 02/23/2023 02/23/2023 02/23/2023 7:15 EDT R/O COVID-19 04/28/2023 04/28/2023 04/29/2023 0:02 EDT documented as of this encounter Care Teams Rubber Moulding Machine Operator Relationship Specialty Start Date End Date Emigdio Veronica MD [address] [place] [phone] PCP - General Internal Medicine - Primary Care 05/22/20 02/21/24 Izabella Snowden, [employer] LENS TECHNICIAN 1 [facility], [address] [place] [phone] Manager Spring 02/21/23 05/03/24 documented as of this encounter
--- OUTSIDE RECORDS SUMMARY | 2024-11-22 16:58 | XMS_ITS | Encounter Summary ---
Author Organization [facility] Address [address] [place] [address] Care Team Providers Care Applications Tester Name Role Phone Emigdio Veronica MD Primary Care Provider + Reason for Visit * Reason Comments Fall Patient presents via [facility] s/p fall pt states she had some epigastric pain and was ambulating attempting to relieve the pain when she fell on her L side, patient now with L sided abd pain L hip pain LLE pain and headache, arrives in [place]. Patient on blood thinner injections for blood clots in my liver patient also states hx GIB bleeding and has had blood in vomit and dark stool x days. 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 No / Unsure 02/14/2023 6:41 EDT documented as of this encounter Last Filed Vital Signs Vital Sign Reading Time Taken Comments Blood Pressure 93/74 02/14/2023 1143 EDT Pulse 90 02/14/2023 1143 EDT Temperature 36.4 ??C (97.6 ??F) 02/14/2023 1143 EDT Respiratory Rate 20 02/14/2023 1143 EDT Oxygen Saturation 98% 02/14/2023 1143 EDT Inhaled Oxygen Concentration - - Weight 106.6 kg (235 lb) 02/14/2023 0639 EDT Height 162.6 cm (5' 4) 02/14/2023 0639 EDT Body Mass Index 40.34 02/14/2023 0639 EDT documented in this encounter Functional Status [...] this encounter Discharge Instructions * Discharge Instructions* Cynthia Quintero - 02/14/2023 11:33 EDT You were seen the emergency department after a fall. Your physical exam, lab work and imaging was reassuring. At this time I believe that you are safe for discharge. Please help with your primary care provider. Return to the Emergency Department (ED) if your condition worsens, does not improve as expected, orother new concerns arise. Specifically return if you have new or uncontrolled pain, high fever, difficulty breathing, vomiting and unable to keep down fluids or medications, or any other concerns. documented in this encounter Medications at Time [...] skin daily. 50 mL 3 12/19/2022 3 fluticasone propionate (FLOVENT DISKUS) 100 mcg/actuation [...] Code Departure Means Destination Home or Self Assisted documented in this encounter ED Notes * Ne Jordan, RN - 02/14/2023 1144 EDT Patient educated on discharge instructions follow up care and to return for worsening s/s, verbalized understanding no further questions at this time, ambulating out of dept with steady gait. IV removed bleeding controlled, stable vitals * Cynthia Quintero - 02/14/2023 0853 EDT Signout note: I assumed care of patient from MD Ugo with placement pending CT head and reevaluation. Tara Boothe is a 62 y.o. female who presents to the ED with with a history QUIROZ, COPD, HUEY, asthma, GERD, decompensated liver cirrhosis, thrombocytopenia, portal vein thrombosis, frequent falls, and chronic pain syndrome, who presents to the ED for evaluation following a fall and abdominal pain. Care and work-up prior to sign out includes lab work that was unremarkable, EKG. After I assumed care the patient had a CT head that was negative. Abdominal exam showed diffuse tenderness to palpation. Ecchymosis from Lovenox injections. Abdomen firm. Will obtain CTA of the abdomen pelvis to evaluate for mesenteric ischemia however have low suspicion at this time but patient isin significant pain. Patient was given 500 mL of fluid, 0.5 mg of Dilaudid. Lipase negative. CT demonstrated: 1. No acute abnormality in the abdomen or pelvis. 2. Chronic non-occlusive portal circulatory thrombosis similar in configuration. There may be slight interval increase in the volume of non-occlusive thrombus within the intrahepatic right portal vein. 3. Spontaneous intrahepatic portosystemic shunt, unchanged. 4. Splenomegaly with chronic infarct, similar in appearance. Patient ate and ambulated. Discussed results with patient. Encouraged her to follow-up with primary care provider, given strict return precautions and discharged home. AUGUSTA Quintero MD Emergency Medicine, PGY-2 She/her Cosigned by Laxmi Cai MD at 02/14/2023 16:55 EDT Associated attestation - Laxmi Cai MD - 02/14/2023 0988 EDT I, Laxmi Cai MD, performed a history and exam of this patient and discussed the case withthe resident. I have reviewed and edited this note, and the documentation is consistent with my findings, assessment and plan. I fully participated in the medical decision making. Briefly: Patient signed out for results of head CT. Decision made to repeat CT abdomen pelvis had been performed recently for similar presentation. CT showing no concerning acute findings. * Tatyana Dolan - 02/14/2023 0645 EDT Emergency Department Visit This documentation is recorded by Kavon Peres acting as Scribe under the direction and presence of Jordan Arizmendi MD and Tatyana Dolan MD. Jordan Arizmendi MD: I personally performed the services recorded by the scribe in my presence. I confirm the scribe's documentation has been reviewed by me to accurately and completely record my work, treatment, procedures, and medical decision making. I, Jordan Arizmendi MD, performed a history and exam of this patient and discussed the case with the resident. I reviewed this individual's note and I concur with the documented findings and plan of care except as documented differently. Medical Decision Making Tara Boothe is a 62 y.o. female with a history of QUIROZ, COPD, HUEY, asthma, GERD, decompensated liver cirrhosis, thrombocytopenia, portal vein thrombosis, frequent falls, and chronic pain syndrome, who presents to the ED for evaluation following a fall. Differential diagnosis considered includesbut is not limited to pancreatitis, peptic ulcer disease, hepatitis, SBP, small bowel obstruction, mesenteric ischemia, acute coronary syndrome, extension of her splenic thrombosis, cardiogenic syncope, intracranial hemorrhage. Patient had a fall and is currently taking Lovenox, she also reports that she does not remember howlong she was on the ground for or if she hit her head, but she does report that she is having right-sided head pain. Given that the patient is on a blood thinner and has unknown loss of consciousnesswe will evaluate for intracranial pathologies with a CT scan of her head. Patient is reporting significant epigastric abdominal pain to begin to evaluate this we will start with labs including a CBC, CMP and an EKG. Patient was just recently seen here in the emergency department on February 07, 2023 after being referred by the hematology clinic for patient's worsening abdominal pain and concerned that she might have worsening abdominal venous thrombosis. Patient had an extensive work-up at that time which included CT scan of the patient's head and abdomen and pelvis allof which did not show any cause of the patient's abdominal pain. At the time patient had improvement after antinausea and narcotic pain medications and was discharged home. At this time we will use a labs to help guide our next steps in treatment of the patient's abdominal pain. And will reevaluate after her CT scan of her head and antinausea medications. Relevant Data as of 02/14/23 0852 Mon Feb 14, 2023 0707 EKG and interpreted by me and reviewed by me. Sinus rhythm. Normal axis. [place] interval is normal, QRS is normal at 92 ms. QTc is normal. We measured this in multiple leads and is between 398 and 447 ms. No definite evidence of ischemia. [MB] 0818 CT HEAD WO CONTRAST No evidence of recent intracranial hemorrhage, acute large territory infarction, or calvarial fracture. [BD] 0818 Creatinine(!): 1.14 [BD] 0819 WBC(!): 3.26 [BD] 0819 I.N.R.: 1.1 [BD] Relevant Data User Index [BD] Tatyana Dolan [MB] Jordan Arizmendi MD EKG is nonischemic and patient is not reporting any chest pain and therefore at this time I think acute coronary syndrome is less likely. Think it is unlikely that over the past week patient would have any extension of her abdominal venous thrombosis and therefore we will hold off on CTA of the abdomen and pelvis until further reevaluation and lab work is completed. Patient signed out to the oncoming team pending CT head and reevaluation. An EKG was obtained and independently interpreted. Imaging obtained was reviewed and independently interpreted. Laboratory data was reviewed. MDM Final diagnoses: None Disposition: No disposition on file Chief complaint: Fall HPI Tara Boothe is a 62 y.o. female with a history of QUIROZ, COPD, HUEY, asthma, GERD, decompensated liver cirrhosis, thrombocytopenia, portal vein thrombosis, frequent falls, and chronic pain syndrome, who presents to the ED for evaluation following a fall. She started to feel her heart race just before falling. She was walking to her room when she fell. She thinks she may have hit her head whenshe hit the ground. One of her housemates found her on the ground. She also reports headaches, blood clots that act up, a pounding sensation in her chest, dark diarrhea, and emesis, as well as bloody, streaking urine at baseline. She was seen here recently in the ED as a referral from hematology clinic for concern for new/worsening abdominal venous thrombosis (02/07/23). She says her pain today is worse. She does not have diabetes or heart disease. She has a history of abdominal surgeries.She does not recall eating anything unusual. She lives in [place] with an older couple. 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 History was provided by: Patient and Medical Chart Records reviewed include: ED Provider Note (02/07/2023) Patient's pertinent PMH, FH, SH were reviewed and edited as necessary. Nursing notes reviewed. A medical screening exam was performed. Physical Exam BP 111/83 Pulse 101 Temp 36.8 ??C (98.3 ??F) (Oral) Resp 17 Ht 162.6 cm (64) Wt (!) 106.6 kg (235 lb) SpO2 97% BMI 40.34 kg/m?? Physical Exam Vitals and nursing note reviewed. Constitutional: General: She is in acute distress. Appearance: She is obese. She is not toxic-appearing. HENT: Head: Normocephalic and atraumatic. Nose: Comments: No blood in the naris or any evidence of septal hematoma. Mouth/Throat: Comments: Poor dentition. No evidence of lacerations or lesions. No blood in the oropharynx. Mucousmembranes are dry. Eyes: Extraocular Movements: Extraocular movements intact. Pupils: Pupils are equal, round, and reactive to light. Neck: Comments: Patient able to flex and extend and rotate her neck without any pain. She has no point bony tenderness to her cervical spine. Cardiovascular: Rate and Rhythm: Regular rhythm. Tachycardia present. Pulses: Normal pulses. Heart sounds: Normal heart sounds. Pulmonary: Effort: Pulmonary effort is normal. No respiratory distress. Breath sounds: Wheezing present. Comments: Patient has end expiratory wheezing on exam in anterior lung godwin. Abdominal: Comments: Protuberant abdomen that is diffusely tender to palpation in all quadrants particularly the upper abdomen and in the epigastric region. Patient has significant bruising to her abdomen likely related to where she has been giving her Lovenox injections. She does not have any rebound or guarding. She is not peritonitic. Skin: General: Skin is warm and dry. Capillary Refill: Capillary refill takes less than 2 seconds. Comments: Chronic venous stasis skin changes to her bilateral lower extremities up to the level of the pelayo. Patient has 2+ pitting edema. Neurological: General: No focal deficit present. Mental Status: She is alert and oriented to person, place, and time. Comments: Patient strength in her bilateral upper extremities and bilateral lower extremities is symmetric and intact. Procedures Procedures Cosigned by Jordan Arizmendi MD at 02/16/2023 8:49 EDT Associated attestation - Jordan Arizmendi MD - 02/16/2023 0849 EDT I, Jordan Arizmendi MD, performed a history and exam of this patient and discussed the case with the resident. I have reviewed and edited this note, and the documentation is consistent with my findings, assessment and plan. I fully participated in the medical decision making. My additions are in blue or are annotated with my initials. This note was partially created using dictation software, and while it was proofread, there may still be uncorrected errors due to the dictation system. Briefly this is a 62-year-old female with a very complicated past medical history who is presentingwith possible syncopal event in the setting of a flare of abdominal pain. She had a very similar presentation a couple weeks ago and had an extensive work-up that was negative. She does say she fell and hit her head and is on Lovenox so we are can obtain a CT scan to exclude any intracranial bleed.Her exam is somewhat difficult given she has some chronic pain, but overall I do not think she has any peritonitis and I think it is unlikely that she has any acute intra-abdominal pathology that require specific treatment. We did consider different causes of syncope, and her EKG does not show any evidence of Brugada syndrome, hypertrophic cardiomyopathy, conduction blocks, or other causes of syncope. She did not have any chest pain or symptoms to suggest a dissection or pulmonary embolism. Overall I think further imaging would be relatively low yield given her presentation and prior work-ups. She is signed out with a head CT pending along with some labs. She will be reassessed by the day team but likely will be able to be discharged after the work-up we ordered is complete. * Ne Jordan RN - 02/14/2023 0630 EDT 18g PIV placed to L AC by EMT at this time documented in this encounter Plan of Treatment Upcoming Encounters Date Type Department Care Team (Late st Contact Info) Description 01/04/2025 13:00 EST Office Visit [facility] Ophthalmology - [address] [phone] Gagandeep Rome MD [address] [place] [address], [facility] [address] [place] [phone] 02/11/2025 13:30 EDT Telemedicine [facility] Hematology & Oncology [address] [id number] Dana Padilla MD [address] [place] [address], [address] [place] [phone] documented as of this encounter Procedures Procedure Name Priority Date/Time Associated Diagnosis Comments CT ANGIO ABDOMEN PELVIS STAT 02/14/2023 8:[address] HEAD WO CONTRAST STAT 02/14/2023 7 :53 EDT HOLD SST Routine 02/14/2023 6:48 EDT HOLD LAVENDER TOP Routine 02/14/2023 6:4 8 EDT HOLD GREEN TOP Routine 02/14/2023 6:48 EDT HOLD BLUE TOP Routine 02/14/2023 6:48 EDT PROTIME STAT Add-on 02/14/2023 6:48 EDT COMPLETE BLOOD COUNT AND DIFFERENTIAL STAT Add-on 02/14/2023 6:48 EDT LIPASE Add-On 02/14/2023 6:48 EDT COMPREHENSIVE METABOLIC PANEL (CMP) STAT Add-on 02/14/2023 6:48 EDT ECG REPORT - SCANNED 02/14/2023 6:44 EDT ECG REPORT - SCANNED 02/14/2023 6:44 EDT EKG 12-LEAD STAT 02/14/2023 6:40 EDT documented in this encounter Results * CT ANGIO ABDOMEN PELVIS (02/14/2023 8:49 EDT) Anatomical Region Laterality Modality Body, Abdomen, Pelvis, Abdomen and Pelvis Computed Tomography 02/14/2023 11:0 9 EDT Impressions 02/14/2023 11:09 EDT 1. ??No acute abnormality in the abdomen or pelvis. 2. Chronic non-occlusive portal circulatory thrombosis similar in configuration. ??There may be slight interval increase in the volume of non-occlusive thrombus within the intrahepatic right portal vein. 3. Spontaneous intrahepatic portosystemic shunt, unchanged. 4. Splenomegaly with chronic infarct, similar in appearance. Narrative 02/14/2023 11:[address] Angiogram of the Abdomen and Pelvis CLINICAL HISTORY: ??62 year old female with abdomen exquisitely tender to palpation TECHNIQUE: Helical computed tomography was performed through the abdomen and pelvis before and after the uneventful intravenous administration of 100 mL of Omnipaque 350, including arterial and venous phase imaging. ??Oral contrast was not administered. Multiplanar reformatted images were generated from the source data. Maximum intensity projection and volume rendered 3-D reconstructions were generated/reviewed on an independent workstation. Total DLP is 4167 mGy*cm. COMPARISON: ??CT Abdomen/Pelvis 02/07/23 FINDINGS: VASCULAR STRUCTURES: Calcified plaque in the aorta and branch vessels. ??The abdominal aorta is normal in course and caliber. ?? The major mesenteric vessels in the abdomen, including the celiac axis, superior mesenteric artery, inferior mesenteric artery, and their respective branches, are patent. The renal arteries are patent bilaterally with note of an accessory left renal artery. The right common, internal, and external iliac arteries are patent. The right common femoral artery is patent. The partially imaged right superficial femoral and profunda femoris arteries are patent. The left common, internal, and external iliac arteries are patent. The left common femoral artery is patent. The partially imaged left superficial femoral and profunda femoris arteries are patent. Chronic thrombus within the expanded portal and splenic vein remains, similar in appearance. ??The IMV and SMV are patent. ??The intrahepatic left portal vein is patent, there is slight increased prominence to partially occlusive right portal vein thrombus. The hepatic veins are patent. ??The imaged systemic venous structures are grossly within normal limits otherwise. INFERIOR THORAX/LUNG BASES: The lung bases are clear. There is no pleural or pericardial effusion. LIVER: ??Cirrhotic configuration of liver. ??An intrahepatic portosystemic shunt measuring approximately 2 cm is redemonstrated in the right lobe, at the hepatic dome. No suspicious hepatic lesions on arterial or portal venous phases. Unchanged mild intrahepatic and extrahepatic biliary ductal dilation. Prior cholecystectomy. SPLEEN, PANCREAS, ADRENAL GLANDS: ??Splenomegaly with evolving chronic splenic infarction status post coil embolization, unchanged in appearance. No new splenic infarct. No peripancreatic inflammation or ductal dilation. Unchanged thickened left adrenal gland, normal right adrenal gland. GENITOURINARY: Kidneys enhance normally and symmetrically. No hydroureteronephrosis or urinary tract calculi. The bladder is grossly within normal limits. Prior hysterectomy. No adnexal mass. GASTROINTESTINAL: No obstruction or acute inflammation. Prior appendectomy. Scattered sigmoid diverticula. ??Otherwise, the distal esophagus, stomach, small bowel, and large bowel are grossly within normal limits. ?? GENERAL/SOFT TISSUES: Small volume tyree-splenic fluid is unchanged. ??There is no free intraperitoneal air or bowel containing hernia. Prior right ventral hernia repair with mesh noted. No significant change in skin thickening and fat stranding in the lower panniculus. Sequela of subcutaneous medication injections. LYMPH NODES: No enlarged lymph nodes within the abdomen or pelvis. OSSEOUS STRUCTURES: No aggressive osseous lesions. ??Multilevel degenerative disc disease noted. Procedure Note Filiberto Matthews MD - 02/14/2023 CT Angiogram of the Abdomen and Pelvis CLINICAL HISTORY: 62 year old female with abdomen exquisitely tender topalpation TECHNIQUE: Helical computed tomography was performed through the abdomenand pelvis before and after the uneventful intravenous administration of100 mL of Omnipaque 350, including arterial and venous phase imaging.Oral contrast was not administered. Multiplanar reformatted images weregenerated from the source data. Maximum intensity projection and volumerendered 3-D reconstructions were generated/reviewed on an independentworkstation. Total DLP is 4167 mGy*cm. COMPARISON: CT Abdomen/Pelvis 02/07/23 FINDINGS: VASCULAR STRUCTURES: Calcified plaque in the aorta and branch vessels. The abdominal aorta isnormal in course and caliber. The major mesenteric vessels in the abdomen, including the celiac axis,superior mesenteric artery, inferior mesenteric artery, and theirrespective branches, are patent. The renal arteries are patent bilaterallywith note of an accessory left renal artery. The right common, internal, and external iliac arteries are patent. Theright common femoral artery is patent. The partially imaged rightsuperficial femoral and profunda femoris arteries are patent. The left common, internal, and external iliac arteries are patent. Theleft common femoral artery is patent. The partially imaged leftsuperficial femoral and profunda femoris arteries are patent. Chronic thrombus within the expanded portal and splenic vein remains,similar in appearance. The IMV and SMV are patent. The intrahepatic leftportal vein is patent, there is slight increased prominence to partiallyocclusive right portal vein thrombus. The hepatic veins are patent. The imaged systemic venous structures aregrossly within normal limits otherwise. INFERIOR THORAX/LUNG BASES: The lung bases are clear. There is no pleuralor pericardial effusion. LIVER: Cirrhotic configuration of liver. An intrahepatic portosystemicshunt measuring approximately 2 cm is redemonstrated in the right lobe, atthe hepatic dome. No suspicious hepatic lesions on arterial or portalvenous phases. Unchanged mild intrahepatic and extrahepatic biliary ductal dilation. Prior cholecystectomy. SPLEEN, PANCREAS, ADRENAL GLANDS: Splenomegaly with evolving chronicsplenic infarction status post coil embolization, unchanged in appearance.No new splenic infarct. No peripancreatic inflammation or ductal dilation.Unchanged thickened left adrenal gland, normal right adrenal gland. GENITOURINARY: Kidneys enhance normally and symmetrically. Nohydroureteronephrosis or urinary tract calculi. The bladder is grossly within normal limits. Prior hysterectomy. Noadnexal mass. GASTROINTESTINAL: No obstruction or acute inflammation. Priorappendectomy. Scattered sigmoid diverticula. Otherwise, the distalesophagus, stomach, small bowel, and large bowel are grossly within normallimits. GENERAL/SOFT TISSUES: Small volume tyree-splenic fluid is unchanged. Thereis no free intraperitoneal air or bowel containing hernia. Prior rightventral hernia repair with mesh noted. No significant change in skinthickening and fat stranding in the lower panniculus. Sequela ofsubcutaneous medication injections. LYMPH NODES: No enlarged lymph nodes within the abdomen or pelvis. OSSEOUS STRUCTURES: No aggressive osseous lesions. Multileveldegenerative disc disease noted. IMPRESSION 1. No acute abnormality in the abdomen or pelvis. 2. Chronic non-occlusive portal circulatory thrombosis similar inconfiguration. There may be slight interval increase in the volume ofnon-occlusive thrombus within the intrahepatic right portal vein. 3. Spontaneous intrahepatic portosystemic shunt, unchanged. 4. Splenomegaly with chronic infarct, similar in appearance. us Cynthia Quintero MD IMG CT ORDERABLES Final Resul t * CT HEAD WO CONTRAST (02/14/2023 7:53 EDT) Anatomical Region Laterality Modality Head Computed Tomogra phy 02/14/2023 8:48 EDT Impressions 02/14/2023 8:48 EDT No evidence of recent intracranial hemorrhage, acute large territory infarction, or calvarial fracture. I have personally reviewed the images and the above interpretation and agree with the findings. Narrative 02/14/2023 8:48 EDT EXAM: CT HEAD WO CONTRAST HISTORY: fall, headstrike, on blood thinner; Head trauma, mod-severe; fall, headstrike, on blood thinner ?? TECHNIQUE: CT head without contrast. Structured report code: [id number] COMPARISON: Head CT 02/07/2023 and 11/03/2021. FINDINGS: PARENCHYMA: No evidence of acute large territory infarction. No acute parenchymal hemorrhage. No mass or midline shift. ??Moderate diffuse parenchymal volume loss. EXTRA-AXIAL SPACES: No acute extra-axial hemorrhage. No extra-axial collection. No extra-axial mass. VENTRICULAR SYSTEM: No obstructive hydrocephalus. No acute intraventricular hemorrhage. VESSELS: Limited evaluation without IV contrast. Normal density in the dural venous sinuses. Calcifications of the carotid siphons. BONES: No concerning lesions. No evidence of fracture. Poor dentition noted, although only partially included in the [id number]. ORBITS: No significant abnormality. PARANASAL SINUSES/MASTOID AIR CELLS: Predominantly clear. EXTRACRANIAL SOFT TISSUES: Unremarkable. Procedure Note Adrayn Mendenhall MD - 02/14/2023 EXAM: CT HEAD WO CONTRAST HISTORY: fall, headstrike, on blood thinner; Head trauma, mod-severe;fall, headstrike, on blood thinner TECHNIQUE: CT head without contrast. Structured report code: NR.CT01 COMPARISON: Head CT 02/07/2023 and 11/03/2021. FINDINGS: PARENCHYMA: No evidence of acute large territory infarction. No acute parenchymalhemorrhage. No mass or midline shift. Moderate diffuse parenchymal volumeloss. EXTRA-AXIAL SPACES: No acute extra-axial hemorrhage. No extra-axial collection. No extra-axialmass. VENTRICULAR SYSTEM: No obstructive hydrocephalus. No acute intraventricular hemorrhage. VESSELS: Limited evaluation without IV contrast. Normal density in the dural venoussinuses. Calcifications of the carotid siphons. BONES: No concerning lesions. No evidence of fracture. Poor dentition noted,although only partially included in the [id number]. ORBITS: No significant abnormality. PARANASAL SINUSES/MASTOID AIR CELLS: Predominantly clear. EXTRACRANIAL SOFT TISSUES: Unremarkable. IMPRESSION No evidence of recent intracranial hemorrhage, acute large territoryinfarction, or calvarial fracture. I have personally reviewed the images and the above interpretation andagree with the findings. Tatyana Dolan MD IMG CT ORDERABLES Final Result * LIPASE (02/14/2023 6:48 EDT) [facility] Lipase 203 <251 U/L 02/14/2023 8:50 EDT [facility] Blood VENOUS BLOOD / Unknown Venipuncture / Unknown 02/14/2023 6:48 EDT 02/14/2023 6:54 EDT Cynthia Quintero MD CHEMISTRY & BLOOD GAS ORDERAB LES Final Result Performing Organization Address [facility] Co de Phone Number [facility] [address] [place] [address] * PROTIME (02/14/2023 6:48 EDT) [facility] I.N.R. 1.1 0.9 - 1.1 Ratio 02/14/2023 7:21 EDT [facility] Pro Time 12.3 9.7 - 12.8 secs 02/14/2023 7:21 EDT [facility] Blood VENOUS BLOOD / Unknown Venipuncture / Unknown 02/14/2023 6:48 EDT 02/14/2023 6:54 EDT Narrative [facility] - 02/14/2023 7:21 EDT Moderate Intensity Coumadin INR = 2.0-3.0 Adjustments in anticoagulant therapy dose should be based on the INR and NOT on the Protime. Tatyana Dolan MD HEMATOLOGY & PF4 ORDERABLES Fi nal Result Performing Organization Address [facility] Co de Phone Number [facility] [address] [place] [address] * (ABNORMAL) COMPREHENSIVE METABOLIC PANEL (CMP) (02/14/2023 6:48 EDT) [facility] Sodium 138 136 - 145 mmol/L 02/14/2023 7:47 EDT [facility] Potassium 4.4 3.5 - 5.0 mmol/L 02/14/2023 7:47 [facility] Chloride 103 96 - 110 mmol/L 02/14/2023 7:47 [facility] CO2 Total 27 22 - 32 mmol/L 02/14/2023 7:47 [facility] Glucose 132(H) 70 - 100 mg/dL 02/14/2023 7:47 [facility] BUN 12 10 - 26 mg/dL 02/14/2023 7:47 [facility] Creatinine 1.14(H) 0.52 - 1.04 mg/dL 02/14/2023 7:47 [facility] eGFR 54(L) >60 mL/min/1.7 3m2 02/14/2023 7:47 [facility] Total Protein 6.5 6.3 - 8.2 g/dL 02/14/2023 7:47 [facility] Albumin 3.6 3.4 - 4.9 g/dL 02/14/2023 7:47 [facility] Alkaline Phosphatase 91 38 - 126 U/L 02/14/2023 7:47 [facility] AST 22 15 - 46 U/L 02/14/2023 7:47 [facility] ALT 17 <35 U/L 02/14/2023 7:47 [facility] Bilirubin, Total <0.5 <1.4 mg/dL 02/15/20 7:47 [facility] Calcium 9.2 8.5 - 10.5 mg/dL 02/14/2023 7:47 [facility] Albumin/Globulin Ratio 1.2 1.0 - 2.5 02/14/2023 7:47 [facility] Anion Gap 8 5 - 14 02/14/2023 7:47 [facility] Blood VENOUS BLOOD / Unknown Venipuncture / Unknown 02/14/2023 6:48 EDT 02/14/2023 6:54 EDT Tatyana Dolan MD CHEMISTRY & BLOOD GAS ORDERABL ES Final Result [facility] [address] [place] [address] * (ABNORMAL) COMPLETE BLOOD COUNT AND DIFFERENTIAL (02/14/2023 6:48 EDT) WBC 3.26(L) 4.00 - 12.40 K/cmm 02/14/2023 7:18 [facility] RBC 3.97 3.86 - 5.04 M/cmm 02/14/2023 7:18 [facility] Hemoglobin 12.1 11.6 - 15.2 gm/dL 02/14/2023 7:18 [facility] HCT 36.0 34.9 - 44.4 % 02/14/2023 7:18 [facility] MCV 91 81 - 98 fl 02/14/2023 7:18 [facility] MCH 30.5 26.7 - 33.3 pg 02/14/2023 7:18 [facility] MCHC 33.6 32.1 - 35.9 gm/dL 02/14/2023 7:18 [facility] RDW-CV 14.7(H) <14.7 % 02/14/2023 7:18 [facility] RDW-SD 49.4 <50.4 fl 02/14/2023 7:18 [facility] PLT 82(L) 141 - 377 K/cmm 02/14/2023 7:18 [facility] MPV 9.9 9.5 - 12.7 fl 02/14/2023 7:18 [facility] % Neutrophils 71.5 % 02/14/2023 7:18 [facility] % Lymphocytes 16.6 % 02/14/2023 7:18 [facility] % Monocytes 9.2 % 02/14/2023 7:18 [facility] % Eosinophils 1.8 % 02/14/2023 7:18 [facility] % Basophils 0.6 % 02/14/2023 7:18 [facility] % Immature Grans 0.3 % 02/15/20 7:18 [facility] Absolute Neutrophils 2.33 2.20 - 8.85 K/cmm 02/14/2023 7:18 [facility] Absolute Lymphocytes 0.54(L) 1.09 - 3.30 K/cmm 02/14/2023 7:18 [facility] Absolute Monocytes 0.30 0.10 - 0.80 K/cmm 02/14/2023 7:18 [facility] Absolute Eosinophils 0.06 0.03 - 0.61 K/cmm 02/14/2023 7:18 [facility] ABS Basophils 0.02 0.01 - 0.11 K/cmm 02/14/2023 7:18 [facility] Absolute Immature Grans 0.01 0.00 - 0.06 K/cmm 02/14/2023 7:18 [facility] Type of Differential: Auto 02/14/2023 7:18 [facility] Blood VENOUS BLOOD / Unknown Venipuncture / Unknown 02/14/2023 6:48 EDT 02/14/2023 6:54 EDT us Tatyana Dolan MD PACKAGES & DNA PROBE ORDERABLE S Final Result [facility] [address] [place] [address] * [facility] (02/14/2023 6:48 EDT) Hold Hold 02/14/2023 8:01 EDT [facility] Blood VENOUS BLOOD / Unknown Venipuncture / Unknown 02/14/2023 6:48 EDT 02/14/2023 6:54 EDT us Jordan Arizmendi MD LAB INFO SERVICE AND SUPPORT & PHONE RESULT Final Result [facility] [address] [place] [address] * HOLD GREEN TOP (02/14/2023 6:48 EDT) Hold Hold 02/14/2023 8:01 EDT [facility] Blood VENOUS BLOOD / Unknown Venipuncture / Unknown 02/14/2023 6:48 EDT 02/14/2023 6:54 EDT us Jordan Arizmendi MD LAB INFO SERVICE AND SUPPORT & PHONE RESULT Final Result [facility] [address] [place] [id number] * HOLD BLUE TOP (02/14/2023 6:48 EDT) Hold Hold 02/14/2023 8:01 EDT [facility] Blood VENOUS BLOOD / Unknown Venipuncture / Unknown 02/14/2023 6:48 EDT 02/14/2023 6:54 EDT us Jordan Arizmendi MD LAB INFO SERVICE AND SUPPORT & PHONE RESULT Final Result [facility] [address] [place] [id number] * HOLD SST (02/14/2023 6:48 EDT) Hold Hold 02/14/2023 8:01 EDT [facility] Blood VENOUS BLOOD / Unknown Venipuncture / Unknown 02/14/2023 6:48 EDT 02/14/2023 6:54 EDT us Jordan Arizmendi MD LAB INFO SERVICE AND SUPPORT & PHONE RESULT Final Result [facility] [address] [place] [id number] * ECG REPORT - SCANNED (02/14/2023 6:44 EDT) 02/14/2023 6:44 EDT us Scan 2 Clinical Coordinator PROCEDURE/MINOR SURGICAL OR DERABLES Final Result * ECG REPORT - SCANNED (02/14/2023 6:44 EDT) 02/14/2023 6:44 EDT us Scan 2 Clinical Coordinator PROCEDURE/MINOR SURGICAL OR DERABLES Final Result * EKG 12-LEAD (02/14/2023 6:40 EDT) 02/14/2023 6:40 EDT Narrative [facility] E[facility] - 02/14/2023 6:41 EDT ?[facility] Emergency ? Test Date: ?2023-02-14 Pat Name: ? PHYLISS BOOTHE ?Department: ?? ED ? Room: ? AC03 Gender: ? Female ? Nursing Associate: ?? [id number] : ?1960 ? Requested By: UGO HAMMONDS Order Number: [id number] ? Reading : ?? AVRIL LUNDBERG MD ? Measurements Intervals ?Marion ? Rate: ? 93 ? P: ?71 WY: ? 157 ?QRS: ?72 QRSD: ? 92 ? T: ?30 QT: ? 346 ? QTc: ?432 ? Interpretive Statements SINUS RHYTHM I reviewed the tracing and have either agreed or edited the findings in this report. Electronically Signed On 02-14-2023 6:41:41 EDT by AVRIL LUNDBERG MD. Procedure Note Avril Lundberg MD - 02/14/2023 [facility] Emergency Test Date: 2023-02-14 Pat Name: TARA BOOTHE Department: ED Room: [facility] Gender: Female Nursing Associate: [id number] : 1960 Requested By: UGO MANZO Order Number: [id number] Reading MD: AVRIL LUNDBERG MD Measurements Intervals Marion Rate: 93 P: 71 WY: 157 QRS: 72 QRSD: 92 T: 30 QT: 346 QTc: 432 Interpretive Statements SINUS RHYTHM I reviewed the tracing and have either agreed or edited the findings inthis report. Electronically Signed On 02-14-2023 6:41:41 EDT by AVRIL MILES. us Jordan Arizmendi MD CARDIAC ECG ORDERABL ES Final Result [facility] EKG documented in this encounter Visit Diagnoses Diagnosis Fall, initial encounter- Primary documented in this encounter Administered Medications Inactive Administered Medications - up to 3 most recent administrations Medication Order MAR Action Action Date Dose Rate Site HYDROmorphone (PF) (DILAUDID) 0.5 mg/0.5 mL syringe 0.5 mg 0.5 mg, intravenous, NOW X1, 1 dose, On Tue02/14/23 at 0830, STAT Given 02/14/2023 8:31 EDT 0.5 mg iohexoL (OMNIPAQUE 350) solution 100 mL 100 mL, intravenous, Once in imaging, 1 dose, Starting on Tue02/14/23 at 0833, Until Tue02/14/23 at 0849, Routine, Imaging Protocol Orders Given 02/14/2023 8:49 EDT 100 mL lactated ringers BOLUS 500 mL 500 mL, intravenous, NOW X1, 1 dose, On Tue02/14/23 at 0830, STAT New Bag 02/14/2023 8:31 EDT 500 mL lidocaine 5 % (LIDODERM) patch 1 Patch 1 Patch, transdermal, Administer over 12 Hours, DAILY, First dose on Tue02/14/23 at 0900, Until Discontinued, STAT ondansetron (PF) (ZOFRAN) injection 4 mg 4 mg, intravenous, NOW X1, 1 dose, On Tue02/14/23 at 0715, STAT Given 02/14/2023 7:16 EDT 4 mg documented in this encounter Active and Recently Administered Medications Times are shown in EDT. Scheduled Medication Order 02/12/2023 02/13/2023 02/14/2023 HYDROmorphone (PF) (DILAUDID) 0.5 mg/0.5 mL syringe 0.5 mg (COMPLETED) 0.5 mg, intravenous, NOW X1, 1 dose, On Tue02/14/23 at 0830, STAT 0831 (Given - Provid er: Ne Jordan, RN) iohexoL (OMNIPAQUE 350) solution 100 mL (COMPLETED) 100 mL, intravenous, Once in imaging, 1 dose, Starting on Tue02/14/23 at 0833, Until Tue02/14/23 at 0849, Routine, Imaging Protocol Orders 0849 (Given - Provid er: Bev Dixon) lactated ringers BOLUS 500 mL (COMPLETED) 500 mL, intravenous, NOW X1, 1 dose, On Tue02/14/23 at 0830, STAT 0831 (New Bag - Prov ider: Ne Jordan, RN)0930 (IV Stopped - Provider: Ne Jordan, KENN) lidocaine 5 % (LIDODERM) patch 1 Patch 1 Patch, transdermal, Administer over 12 Hours, DAILY, First dose on Tue02/14/23 at 0900, Until Discontinued, STAT 0802 (Not Given - Pr ovider: Ne Jordan RN - Reason: Patient/family refused) ondansetron (PF) (ZOFRAN) injection 4 mg (COMPLETED) 4 mg, intravenous, NOW X1, 1 dose, On Tue02/14/23 at 0715, STAT 0716 (Given - Provid er: Ne Jordan, KENN) documented in this encounter Orders Medications Ordered That Luc ht Not Have Been Administered Count Last Ordered Date First Ordered Date lidocaine 5 % (LIDODERM) patch 1 Patch 1 documented in this encounter Care Teams Applications Tester Relationship Specialty Start Date End Date Emigdio Veronica MD [address] [place] [id number] PCP - General Internal Medicine - Primary Care 05/22/20 02/21/24 documented as of this encounter
--- OUTSIDE RECORDS SUMMARY | 2024-11-22 16:58 | XMS_ITS | Encounter Summary ---
Author Organization [facility] Address [address] [place] [address] Care Team Providers Care Stereotyper Name Role Phone Emigdio Veronica MD Primary Care Provider + Reason for Visit * Reason Comments Hospital Discharge Follow Up Encounter Details Date Type Department Care Team (Late st Contact Info) Description 12/23/2022 10:00 EST Office Visit [facility] - [place] [address] [place] [address] Emigdio Veronica MD [address] [place] [phone] Hypotension due to hypovolemia (Primary Dx); Other cirrhosis of liver (HCC-CMS); Chronic pain syndrome; Drug-seeking behavior; Iliac lymphadenopathy; Healthcare maintenance Social History Tobacco Use Types Packs/Day Years Used Date Smoking Tobacco: Former Cigarettes 0.3 35 Smokeless Tobacco: Never Tobacco Cessation:Counseling Given: No Comments:smokes couple times a week Alcohol Use [...] 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 No / Unsure 12/14/2022 1:59 EST documented as of this encounter Last Filed Vital Signs Vital Sign Reading Time Taken Comments Blood Pressure 117/53 12/23/2022 1019 EST Pulse 77 12/23/2022 1019 EST r Temperature 36.6 ??C (97.8 ??F) 12/23/2022 1019 EST Respiratory Rate 16 12/23/2022 1019 EST Oxygen Saturation - - Inhaled Oxygen Concentration - - Weight 116.8 kg (257 lb 9.6 oz) 12/23/2022 1019 EST Height - - Body Mass Index 44.22 12/14/2022 0157 EST documented in this encounter [...] * Patient Instructions* Emigdio Veronica MD - 12/23/2022 10:00 EST Cut your sertraline / zoloft in half for the next two weeks. Following this two week period stop sertraline. Start venlafaxine now. documented in this encounter Ordered Prescriptions Prescription Sig Dispense Quantity Refills Last Filled Start Date End Date venlafaxine (EFFEXOR-XR) 75 mg XR capsule Take 1 Capsule by mouth daily. 30 Capsule 2 12/23/2022 3 documented in this encounter Progress Notes * Emigdio Veronica MD - 12/23/2022 1000 EST Tara Yun is a 62 y.o. female with a PMHx of COPD, decompensated liver cirrhosis, thrombocytopenia, portal vein thrombosis, HUEY, frequent falls, chronic pain syndrome on opiate therapy PRIMARY CARE PROVIDER: Emigdio Veronica CHIEF COMPLAINT: Transition of Care Follow-up SUBJECTIVE: Tara Yun presents today for a transition of care follow-up. Patient was discharged from: [facility] internal medicine service Date of discharge: 12/18/22 Reason for hospitalization: Hypovolemic shock [facility] within 48 business hours of discharge or documentation of two failed attempts if unable to reach patient: Yes Date of interactive contact and/or dates of two failed attempts to contact patient: 12/21/2022 I have obtained and reviewed the Discharge Summary: Yes Today Gena appears fatigued. She reports severe diffuse chronic pain. She is once again admitted to the [facility] after presenting to the [facility] ED on 12/14 for altered mental status and complaints of diffuse abdominal and lower back pain. She was identified to be hemodynamically unstable with a systolic blood pressure upper 60-70 range. Her ER work-up was significant for an elevated D-dimer greater than 1400 and an acute kidney injury witha creatinine of 1.23. She confirmed any recent history of poor p.o. intake and repeated episodes ofemesis. She was admitted to the MICU for hypovolemic shock and received a combination of IV fluids and pressors for support. Her acute kidney injury resolved and her systolic blood pressure steadily improved following IV fluid resuscitation. She was discharged on 12/18 back on her prior to admissiondiuretic regiment of furosemide 60 mg daily and spironolactone 100 mg daily. She states that thankfully her weight has steadily improved since discharge from the hospital. She states that her baseline weight is now in the mid 250s that she was up to the 260s following her IV fluid resuscitation in the hospital. Her weight was noted to be 257 pounds on presentation today. She denies any current nausea or vomiting. Regards to her chronic pain she reports poor pain control on her current regiment of oxycodone 5 mg3 times daily as needed. She reported to her inpatient team that she had not been taking her oxycodone for several days despite being weeks early from a refill. She obtained a 10 pill supply on discharge on 12/18 and she requested a scheduled refill of her oxycodone for 12/22 from our office immediately after discharge. She has been intentionally vague with our triage staff regarding her usage of prescribed oxycodone. In addition to her recent presentation for altered mental status she has had numerous ER presentations for falls and injuries this past year. She has been extensively evaluated forher chronic pain several times previously over the last 10 years and was most recently referred back to the comprehensive pain clinic to discuss pain management options. She was most recently scheduled to follow-up with the comprehensive pain clinic on 12/02/2022 though it appears she canceled this a ppointment. She is requesting dose increase of her oxycodone today. Her interval history is also notable for the identification of a iliac lymph node and a PET/CT was ordered to follow-up on a known lower lung nodule. Radiology recommended biopsy of her iliac lymph node for further evaluation of its etiology given its malignant appearance. Unfortunately interventional radiology has since reported that the lymph node is unable to be biopsied due to its position and size. They have recommended continued monitoring with imaging for now, though they have not specified the appropriate interval for monitoring or the preferred imaging modality. We discussed this development in depth today. Gena is still awaiting a call from gastroenterology scheduling to arrange a colonoscopy for colon cancer screening. ROS as above Medications and history reviewed. [...] % (0.035 %) ophthalmic solution ??? lactulose 10 gram/15 mL (15 mL) solution ??? levothyroxine (SYNTHROID) 25 mcg tablet [...] mL (0.083 %) nebulizer solution OBJECTIVE: BP 117/53 (BP Cuff Location: Left arm, BP Patient Position: Sitting, BP Cuff Sizes: Adult, long) Pulse 77 Comment: r Temp 36.6 ??C (97.8 ??F) (Tympanic) Resp 16 Wt (!) 116.8 kg (257 lb 9.6 oz) BMI 44.22 kg/m?? Gen: Fatigued and chronically ill appearing morbidly obese female, NAD HEENT: EOMI, PERRL,, conjunctiva pink, no scleral injection/ icterus Abd: Distended and diffusely tender, hepatosplenomegaly noted. Extrem: +2 pitting edema appreciated bilateral lower extremities up to shins Skin: No rashes or erythema, intact Neuro: A&Ox3, CN II through XII grossly intact Recent Labs/Imaging: Reviewed in epic ASSESSMENT and PLAN: Tara was seen today for hospital discharge follow up. Diagnoses and all orders for this visit: Hypotension due to hypovolemia, Other cirrhosis of liver (HCC): Hypotension resolved following IV fluid resuscitation while hospitalized. Patient back at baseline weight at this encounter. Patient remains in a tenuous volume status. She continues to struggle with symptoms of hypervolemia related todecompensated liver cirrhosis but is easily provoked into intravascular hypovolemia with either excessive diuresis or poor p.o. intake. -For now encouraged ongoing use of furosemide at 60 mg daily and spironolactone at 100 mg daily. -Encourage plan to reestablish with hepatology scheduled -Should weight dramatically increase could consider a temporary increase in spironolactone to 150 milligrams daily for short period. -Heavily encouraged salt restriction and diet Chronic pain syndrome, Drug-seeking behavior: Patient continues to struggle with chronic diffuse pain. Chronic pain syndrome preceded liver cirrhosis and unfortunately is been exacerbated by the presence of increased ascites, portal vein thrombosis, increased weight and likely degenerative musculoskeletal disease. She is unable to take acetaminophen or NSAID therapy due to her combined liver and kidney disease. Patient has a known history of drug-seeking behavior documented previously. Despite reinforcing the importance of strict adherence to her opiate therapy as prescribed she has repeatedly requested early refills of her opiates several times within the last 6 months. She is once again requesting a formal dose increase in her opiate therapy today and we discussed that this change was neither safe nor appropriate. We discussed the extensive risks of dose escalating opiates in the setting of combined liver and kidney disease as well as in a patient with obstructive airway disease con history of repeated ER presentations for altered mental status and fall injuries. Patient has unfortunately canceled her recently scheduled comprehensive pain appointment. -Informed patient I am not comfortable escalating her opiate therapy at this time for numerous safety concerns -Reiterated that opiates need to be taken strictly as prescribed as outlined in our prescription agreement -Continue oxycodone at 5 mg 3 times daily for now -Heavily encourage patient reestablish with comprehensive pain clinic to review next steps of pain management -We will taper patient off of sertraline by having the patient cut her 50 mg tablets in half for the next 2 weeks. -In an attempt to better manage chronic pain and chronic anxiety we will start venlafaxine at 75 mgdaily - Will follow-up at our next encounter Iliac lymphadenopathy: Identified on recent PET CT scan. Per general radiology a biopsy of her iliac lymph node is warranted to elucidate its etiology. However interventional radiology has declined areferral for biopsy stating that the lymph node is too small to sample. They are recommending serial imaging to monitor the lymph node at this time. -We will follow-up with radiology regarding the next best imaging test to evaluate this lymphadenopathy and to review the appropriate imaging interval for now. -Encouraged patient complete colonoscopy when scheduled as also recommended by radiology F/u: As scheduled Some of this note was transcribed with [employer] dictating software. While it was proofread, it may still contain unnoticed grammatical or word errors due to incorrect transcribing. Emigdio Veronica MD 12/26/2022 12:44 documented in this encounter Plan of Treatment Upcoming Encounters Date Type Department Care Team (Late st Contact Info) Description 01/04/2025 13:00 EST Office Visit [facility] Ophthalmology - [address] [id number] Gagandeep Rome MD [address] [facility], [facility] [address] [place] [phone] 02/11/2025 13:30 EDT Telemedicine [facility] Hematology & Oncology - [address] [id number] Dana Padilla MD [address] [facility], [facility] [address] [place] [phone] documented as of this encounter Visit Diagnoses Diagnosis Hypotension due to hypovolemia- Primary Other cirrhosis of liver (HCC-CMS) Chronic pain syndrome Drug-seeking behavior Other, mixed, or unspecified nondependent drug abuse, unspecified Iliac lymphadenopathy Healthcare maintenance Routine general medical examination at a health care facility documented in this encounter Discontinued Medications Medication Sig Discontinue Reason Start Date End Da te sertraline (ZOLOFT) 50 mg tablet Take 1 Tablet by mouth daily. Alternate therapy 10/04/2022 12/23/2022 documented as of this encounter Care Teams Stereotyper Relationship Specialty Start Date End Date Emigdio Veronica MD [address] [place] [phone] PCP - General Internal Medicine - Primary Care 05/22/20 02/21/24 documented as of this encounter
--- OUTSIDE RECORDS SUMMARY | 2024-11-22 16:58 | XMS_ITS | Encounter Summary ---
Author Organization [facility] Address [address] [place] [address] Care Team Providers Care Radiology Therapist Name Role Phone Emigdio Veronica MD Primary Care Provider + Reason for Visit * Reason Comments Abdominal Pain See TCALL. Known abd thrombosis +abd pain, N/V and distention. Pt states she is still take Lovenox injections, last dose this am. +GI bleed. 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 No / Unsure 02/07/2023 12:13 EDT documented as of this encounter Last Filed Vital Signs Vital Sign Reading Time Taken Comments Blood Pressure 114/68 02/07/2023 1536 EDT Pulse 86 02/07/2023 1212 EDT Temperature 36.4 ??C (97.6 ??F) 02/07/2023 1536 EDT Respiratory Rate 16 02/07/2023 1536 EDT Oxygen Saturation 97% 02/07/2023 1536 EDT Inhaled Oxygen Concentration - - Weight 106.6 kg (235 lb) 02/07/2023 1212 EDT Height 160 cm (5' 3) 02/07/2023 1212 EDT Body Mass Index 41.63 02/07/2023 1212 EDT documented in this encounter Functional Status [...] this encounter Discharge Instructions * Discharge Instructions* Nuria Oliver MD - 02/07/2023 18:40 EDT You were seen in the Emergency Department for abdominal pain. Your symptoms were likely due to your chronic blood clot. Your results showed no emergent cause requiring admission at this time. Your labs showed no acute abnormalities . Your CT scan showed no new emergent findings to explain the cause of your pain. We gave you IV pain and nausea medication. Please be sure to follow-up with your primary care provider. Please return to the Emergency Department if you develop worsening pain, fevers, chills, nausea, vomiting, or any other concerning symptoms. Thank you for coming to [facility] Emergency Department! * Attachments The following attachments cannot be sent through Care Everywhere. * Abdominal Pain (Georgian) documented in this encounter Medications at Time of Discharge diclofenac sodium gel Apply 2 g topically 2 times daily as needed for Pain (Knee pain). 50 g 1 06/25/2022 INCRUSE ELLIPTA 62.5 mcg/actuationIndi cations:Chronic obstructive pulmonary disease, unspecified COPD type ([facility]) INHALE 1 PUFF BY MOUTH DIRECTED [...] Daily Max: 15 mg 84 Tablet 01/19/2023 3 pantoprazole (PROTONIX) 40 mg tablet Take [...] documented in this encounter ED Notes * Julissa Moran RN - 02/07/2023 4215 EDT Pt states they are ready for discharge. Pt given discharge instructions and handout. Pt has no distress, pain issues were addressed. Pt has a ride/plan to get home. Pt already in clothes declined d/cvitals. Was able to walk out, much improvement from this am. * Julissa Moran RN - 02/07/2023 1448 EDT 12 Lead EKG Performed by JULISSA MORAN RN and shown to Nuria Oliver MD. * Nuria Oliver MD - 02/07/2023 1406 EDT Emergency Department Visit This documentation is recorded by Hiren Crews acting as Scribe under the direction and presence of Nuria Oliver MD. Nuria Oliver MD: I personally performed the services recorded by the scribe in my presence. I confirm the scribe's documentation has been reviewed by me to accurately and completely record my work, treatment, procedures, and medical decision making. Medical Decision Making 62 y/o F with complicated medical/surgical hx including QUIROZ (complicated by cirrhosis and small esophageal varices), GERD, hypothyroidism, COPD, asthma, HUEY (not on CPAP), unspecified coagulopathy (splenic vein thrombosis with infarct, SMV thrombosis, previously on Eliquis and Lovenox but now on Lovenox only following thrombocytopenia and GIB), CKD (baseline creatinine of 1.0), bleeding ulcers, status post cholecystectomy, status post gastric fundoplication (in the ), and status post hernia repair referred to ED by hematology for concern for extension of known abdominal venous thrombosis. Patient presenting with abdominal pain. -no periumbilical/RLQ pain to suggest appendicitis at this time -LFTs/lipase wnl not suggestive of acute hepatitis/pancreatitis -no ascites/infectious symptoms to suggest cirrhosis with SBP -no constipation/obstipation made SBO less likely, although has significant surgical hx -no pain out of proportion or risk factors to suggest mesenteric ischemia -history and exam not c/w torsion Labs performed and reviewed independently without significant change from baseline. EKG non-ischemic and trop neg not consistent with atypical presentation of ACS (also performed given ?syncopal episode several days ago) CT head performed given fall on AC negative for acute bleed/fracture CT a/p performed showing interval improvement in known splenic/portal vein thrombosis, no acute process to explain for current symptoms. Pt was given dilaudid (has documented hx of anaphylaxis to morphine), zofran and IVF with improvement in symptoms. Tolerating PO. Discharged in stable condition with plan to follow-up with her known providers--to return to ED with worsening symptoms. Relevant Data as of 02/07/23 190TueFeb 07, 2023 1356 Creatinine(!): 1.22 [LA] 1356 WBC(!): 2.73 Leukopenia appears to be at baseline per chart review [LA] 1357 Creatinine(!): 1.22 Cr 1.22 at baseline per chart review [LA] 1550 CT HEAD WO CONTRAST CT head neg for acute bleed [LA] 1634 CT ABDOMEN PELVIS W CONTRAST [LA] 1635 CT ABDOMEN PELVIS W CONTRAST 1. No acute abno1. No acute abnormality in the abdomen or [...] appendectomy, ventral hernia repair. 7. Mild diverticulosis. ??rmality in the abdomen or pelvis. 2. Evolving [...] appendectomy, ventral hernia repair. 7. Mild diverticulosis. ?? [LA] Relevant Data User Index [LA] Nuria Oliver MD Patient had an EKG performed upon arrival to the ED which was reviewed and interpreted by myself. (Sinus rhythm at 86 bpm, no ST elevations, depressions, or T wave inversions, QTc 413, normal intervals). An EKG was obtained and independently interpreted. Imaging obtained was reviewed and independently interpreted. Laboratory data was reviewed. Medical Decision Making Generalized abdominal pain: acute illness or injury Amount and/or Complexity of Data Reviewed Labs: ordered. Decision-making details documented in ED Course. Radiology: ordered. Decision-making details documented in ED Course. Risk Prescription drug management. 1447: Discussed pain management with ED pharmacist Eloy due to history of anaphylaxis with morphine. Patient has received Dilaudid in the ED previously without complication. 1656: Re-evaluated the patient, who reports that her pain and nausea have not improved. Discussed reassuring imaging findings. Will order additional Dilaudid and Zofran. 1813: Patient states that she feels improved. Discussed reassuring labs and imaging. Discussed planfor patient to follow up with her PCP. Patient is amenable to this plan and is agreeable to discharge at this time. Return precautions were discussed prior to discharge. Final diagnoses: Generalized abdominal pain Disposition: Discharged Chief complaint: Abdominal pain HPI Tara Boothe is a 62 y.o. 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 The patient describes chronic, constant epigastric pain (months/years) that acutely worsened on 02/05. She reports that the location of her pain has not changed, though it is now radiating to her bilateral flanks and has some mild associated distension. States that she has baseline n/v associated with her chronic pain, but has had difficulty tolerating any PO for the past 4-5 days. Denies diarrhea or constipation/obstipation, though she states that she did have black stool with some red blood observed when wiping on 02/05 which she states she has had before and which has since resolved. Reports subjective fevers over the weekend but never measured. Denies any associated CP, palpitations, hematemesis, urinary symptoms. No sick contacts, recent travel or suspicious food intakes. Of note, the patient reports that she had a fall on 02/05/23 after she got up to go to the bathroom,became dizzy and lightheaded, and momentarily blacked out. She states that she had another similar fall yesterday, though she denies head strike in either fall. Denies any preceding CP, palpitations,n/v/diaphoresis. Endorses mild BRIGHT without associated changes in vision or speech, no numbness, tingling, weakness or difficulty with ambulation. Denies neck pain. History was provided by: Patient and medical record External records reviewed include: 12/18/22 Hospital Medicine Discharge Summary: Patient presented to the ED on 12/14/22 with back pain and was hospitalized until 12/18/22 for hypovolemic shock. The patient was started on 60 mg daily Lovenox. Patient's pertinent PMH, FH, SH were reviewed and edited as necessary. Nursing notes reviewed. A medical screening exam was performed. Physical Exam BP 114/68 Pulse 86 Temp 36.4 ??C (97.6 ??F) (Oral) Resp 16 Ht 160 cm (63) Wt (!) 106.6 kg (235 lb) SpO2 97% BMI 41.63 kg/m?? Physical Exam General: alert and oriented to person, place, and time. No acute distress. HEENT: mucous membranes moist CV: regular rate and rhythm, no murmurs appreciated. 2+ radial pulses bilaterally. Pulm: Diffuse mild expiratory wheeze, but good air movement bilaterally Abd: Normoactive bowel sounds. Soft, non-distended, no ascites. Diffuse tenderness to palpation throughout. Diffuse bruising on lower abdomen (attributed to Lovenox injections). Extremities: warm, dry, well-perfused. 2+ DP and femoral pulses bilaterally. No edema bilaterally. Neuro: pupils equal and reactive, normal speech and gait. Procedures Procedures * Tiny Sommers RN - 02/07/2023 1228 EDT Pt brought to [facility] [email or web address]], states she was told to tell us she always needs US IV * Carina Gallardo RN - 02/07/2023 1212 EDT BP 112/69 (BP Cuff Location: Left arm, BP Patient Position: Sitting) Pulse 86 Temp 36.6 ??C (97.9 ??F) (Temporal) Resp 18 Ht 160 cm (63) Wt (!) 106.6 kg (235 lb) SpO2 97% BMI 41.63 kg/m?? Chief Complaint Patient presents with ??? Abdominal Pain See TCALL. Known abd thrombosis +abd pain, N/V and distention. Pt states she is still take Lovenox injections, last dose this am. +GI bleed. documented in this encounter Plan of Treatment Upcoming Encounters Date Type Department Care Team (Late st Contact Info) Description 01/04/2025 13:00 EST Office Visit [facility] Ophthalmology - [address] [phone] Gagandeep Rome MD [address] [place] [address] [address] [place] [phone] 02/11/2025 13:30 EDT Telemedicine [facility] Hematology & Oncology [address] [phone] Dana Padilla MD [address] [place] [address] 2 [place] [phone] documented as of this encounter Procedures Procedure Name Priority Date/Time Associated Diagnosis Comments ECG REPORT - SCANNED 02/21/2023 22:37 EDT ECG REPORT - SCANNED 02/21/2023 22:[address] HEAD WO CONTRAST STAT 02/07/2023 1 5:[address] ABDOMEN PELVIS W CONTRAST STAT 02/07/2023 15:09 EDT EKG 12-LEAD STAT 02/07/2023 14:40 EDT COMPLETE BLOOD COUNT AND DIFFERENTIAL STAT 02/07/2023 13:09 EDT LIPASE Add-On 02/07/2023 13:09 EDT COMPREHENSIVE METABOLIC PANEL (CMP) STAT 02/07/2023 13:09 EDT HOLD GREEN TOP STAT 02/07/2023 13:08 EDT HOLD BLUE TOP STAT 02/07/2023 13:08 EDT TROPONIN I Add-On 02/07/2023 13:08 EDT BLOOD BANK HOLD STAT 02/07/2023 13:08 EDT POCT US ED GUIDANCE PIV 02/07/2023 12:55 EDT documented in this encounter Results * ECG REPORT - SCANNED (02/21/2023 22:37 EDT) 02/21/2023 22:3 7 EDT us Scan 2 Wire Stockkeeper PROCEDURE/MINOR SURGICAL OR DERABLES Final Result * ECG REPORT - SCANNED (02/21/2023 22:37 EDT) 02/21/2023 22:3 7 EDT us Scan 2 Wire Stockkeeper PROCEDURE/MINOR SURGICAL OR DERABLES Final Result * CT HEAD WO CONTRAST (02/07/2023 15:09 EDT) Anatomical Region Laterality Modality Head Computed Tomogra phy 02/07/2023 15:4 5 EDT Impressions 02/07/2023 15:45 EDT No evidence of recent intracranial hemorrhage or calvarial fracture. I have personally reviewed the images and the above interpretation and agree with the findings. Narrative 02/07/2023 15:45 EDT EXAM: CT HEAD WO CONTRAST HISTORY: fall on AC; Head trauma, mod-severe TECHNIQUE: CT head without contrast. Structured report code: NR.CT01 COMPARISON: CT head 11/03/2021 FINDINGS: PARENCHYMA: No evidence of infarction. No parenchymal hemorrhage. No mass or midline shift. Moderate diffuse parenchymal volume loss. EXTRA-AXIAL SPACES: No extra-axial hemorrhage. No extra-axial collection. No extra-axial mass. VENTRICULAR SYSTEM: No intraventricular hemorrhage. No obstructive hydrocephalus. VESSELS: Limited evaluation without IV contrast. Normal density in the dural venous sinuses. Calcifications in the carotid siphons. BONES: No concerning lesions. No evidence of fracture. ORBITS: No significant abnormality. PARANASAL SINUSES/MASTOID AIR CELLS: Predominantly clear. EXTRACRANIAL SOFT TISSUES: Unremarkable. Procedure Note Lon Levy MD - 02/07/2023 EXAM: CT HEAD WO CONTRAST HISTORY: fall on AC; Head trauma, mod-severe TECHNIQUE: CT head without contrast. Structured report code: NR.CT01 COMPARISON: CT head 11/03/2021 FINDINGS: PARENCHYMA: No evidence of infarction. No parenchymal hemorrhage. No mass or midlineshift. Moderate diffuse parenchymal volume loss. EXTRA-AXIAL SPACES: No extra-axial hemorrhage. No extra-axial collection. No extra-axialmass. VENTRICULAR SYSTEM: No intraventricular hemorrhage. No obstructive hydrocephalus. VESSELS: Limited evaluation without IV contrast. Normal density in the dural venoussinuses. Calcifications in the carotid siphons. BONES: No concerning lesions. No evidence of fracture. ORBITS: No significant abnormality. PARANASAL SINUSES/MASTOID AIR CELLS: Predominantly clear. EXTRACRANIAL SOFT TISSUES: Unremarkable. IMPRESSION No evidence of recent intracranial hemorrhage or calvarial fracture. I have personally reviewed the images and the above interpretation andagree with the findings. us Nuria Oliver MD IMG CT ORDERABLES Final Result * CT ABDOMEN PELVIS W CONTRAST (02/07/2023 15:09 EDT) Anatomical Region Laterality Modality Body, Abdomen, Pelvis, Abdomen and Pelvis Computed Tomography 02/07/2023 15:5 6 EDT Impressions 02/07/2023 15:56 EDT 1. ??No acute abnormality in the abdomen or pelvis. 2. ??Evolving chronic nonocclusive portal/splenic vein thrombosis with partial recanalization. Interval improvement in left portal vein and SMV involvement. Portal and splenic veins remain patent. 3. ??Cirrhotic configuration of liver, with stable intrahepatic portosystemic shunt right dome. 4. 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 5. ??Unchanged left adrenal thickening 6. ??Prior hysterectomy, cholecystectomy, appendectomy, ventral hernia repair. 7. ??Mild diverticulosis. I have personally reviewed the images and the above interpretation and agree with the findings. Narrative 02/07/2023 15:[address] ABDOMEN PELVIS W CONTRAST ??02/07/2023 2:45 PM Signs and Symptoms/Comments: ?? hx of splenic thrombosis with infarct presenting with worsening abd concerning for worsening clot burden; hx of splenic thrombosis with infarct presenting with worsening abd concerning for worsening clot burden Technique: CT of the abdomen and pelvis was performed following the administration intravenous contrast; coronal and sagittal multiplanar reconstructions generated. Comparison: CT abdomen pelvis 12/14/2022. PET/CT 12/07/2022. Findings: Lower chest: No significant finding. Hepatobiliary: [...] height loss of lower thoracic vertebral bodies. Refrigerator Glazier: No additional findings. Procedure Note Scottie Xavier MD - 02/07/2023 CT ABDOMEN PELVIS W CONTRAST 02/07/2023 2:45 PM Signs and Symptoms/Comments: hx of splenic thrombosis with infarct presenting with worsening abdconcerning for worsening clot burden; hx of splenic thrombosis withinfarct presenting with worsening abd concerning for worsening clotburden Technique: CT of the abdomen and pelvis was performed following the administrationintravenous contrast; coronal and sagittal multiplanar reconstructionsgenerated. Comparison: CT abdomen pelvis 12/14/2022. PET/CT 12/07/2022. Findings: Lower chest: No significant finding. Hepatobiliary: Cirrhotic configuration of liver. Intrahepaticportosystemic shunt. There is a approximately 2 cm intrahepaticportosystemic shunt right lobe dome, axial 27, with prominent feedingportal vein branch and draining hepatic vein branch. No suspicious hepaticlesion on portal venous phase. Unchanged mild intrahepatic andextrahepatic biliary ductal dilation. Prior cholecystectomy. Spleen, pancreas, adrenal glands: Unchanged splenomegaly with chronicsplenic infarction status post coil embolization. No new splenic infarct.No peripancreatic inflammation or ductal dilation. Unchanged thickenedleft adrenal gland, normal right adrenal gland. Kidneys, ureters, bladder: Symmetric renal enhancement. Nohydroureteronephrosis or nephrolithiasis. Normal urinary bladder. Uterus, ovaries: Prior hysterectomy. No adnexal mass. Bowel: No obstruction or acute inflammation. Prior appendectomy. Scatteredsigmoid diverticula. Peritoneal cavity / Subperitoneal space: Small perihepatic free fluid isstable. No fluid collection. No free air.. Lymphovascular: Decreased attenuation of known chronic thrombus within theexpanded portal and splenic vein with partial recanalization. Intervalimprovement in left portal vein, SMV involvement. No significant change insystemic collaterals. No pathologically enlarged lymph nodes. Unchanged enlarged right externaliliac lymph node, again measures 7 mm short axis,, axial 227, previouslynoted to be hypermetabolic on PET/CT. Calcified plaque in thenonaneurysmal aorta and branch vessels. Abdominal wall: No bowel containing hernia. Prior right ventral herniarepair with mesh noted. No significant change in skin thickening and fatstranding in the lower panniculus. Sequela of subcutaneous medicationinjections. Musculoskeletal: No suspicious osseous lesion or acute fracture.Multilevel degenerative disc disease, most notable at L3-L4, with stablemild height loss of lower thoracic vertebral bodies. Refrigerator Glazier: No additional findings. IMPRESSION 1. No acute abnormality in the abdomen or pelvis. 2. Evolving chronic nonocclusive portal/splenic vein thrombosis withpartial recanalization. Interval improvement in left portal vein and SMVinvolvement. Portal and splenic veins remain patent. 3. Cirrhotic configuration of liver, with stable intrahepaticportosystemic shunt right dome. 4. Splenomegaly with chronic splenic infarct status post coilembolization. 5. Unchanged left adrenal thickening 6. Prior hysterectomy, cholecystectomy, appendectomy, ventral herniarepair. 7. Mild diverticulosis. I have personally reviewed the images and the above interpretation andagree with the findings. us Nuria Oliver MD IMG CT ORDERABLES Final Result * EKG 12-LEAD (02/07/2023 14:40 EDT) 02/07/2023 14:4 0 EDT Narrative [facility] EKG - 02/21/2023 22:32 EDT ?[facility] Emergency ? Test Date: ?2023-02-07 Pat Name: ? PHYLISS BOOTHE ?Department: ?? ED ? Room: ? GT34 Gender: ? Female ? [employer] Instructor: ?? : ?1960 ? Requested By: SIOBHAN Irizarry Order Number: [id number] ? Jose MD: ?? AMINATA GARAY MD ? Measurements Intervals ?[place] ? Rate: ? 86 ? P: ?62 MA: ? 153 ?QRS: ?67 QRSD: ? 88 ? T: ?58 QT: ? 370 ? QTc: ?444 ? Interpretive Statements SINUS RHYTHM Automated Interpretation. ??Provider Interpretation to follow. Compared to ECG 12/14/2022 03:25:06 T-wave abnormality no longer present I reviewed the tracing and have either agreed or edited the findings in this report. Electronically Signed On 02-21-2023 22:32:55 EDT by AMINATA GARAY MD. Procedure Note Aminata Garay MD - 02/21/[address] [facility] Emergency Test Date: 2023-02-07 Pat Name: TARA BOOTHE Department: ED Room: [facility] Gender: Female [employer] Bot[employer] Instructor: : 1960 Requested By: SIOBHAN Irizarry Order Number: [id number] Reading MD: AMINATA GARAY MD Measurements Intervals [place] Rate: 86 P: 62 MA: 153 QRS: 67 QRSD: 88 T: 58 QT: 370 QTc: 444 Interpretive Statements SINUS RHYTHM Automated Interpretation. Provider Interpretation to follow. Compared to ECG 12/14/2022 03:25:06 T-wave abnormality no longer present I reviewed the tracing and have either agreed or edited the findings inthis report. Electronically Signed On 02-21-2023 22:32:55 EDT by AMINATA CEE. us Nuria Oliver MD CARDIAC ECG ORDERABLES Final Re sult [facility] EKG * LIPASE (02/07/2023 13:09 EDT) Pathologist [facility] Lipase 97 <251 U/L 02/07/2023 15:33 EDT [facility] Blood VENOUS BLOOD / Unknown Venipuncture / Unknown 02/07/2023 13:09 EDT 02/07/2023 13:12 EDT Nuria Oliver MD CHEMISTRY & BLOOD GAS ORDERABLE S Final Result Performing Organization Address City/[facility]/ZIP Co de Phone Number [facility] [address] [place] [address] * (ABNORMAL) COMPREHENSIVE METABOLIC PANEL (CMP) (02/07/2023 13:09 EDT) Sodium 135(L) 136 - 145 mmol/L 02/07/2023 13:41 [facility] Potassium 4.5 3.5 - 5.0 mmol/L 02/07/2023 13:41 [facility] Comment:Slight hemolysis rell ntified, interpret with caution as hemolysis will elevate potassium result. Chloride 104 96 - 110 mmol/L 02/07/2023 13:41 [facility] CO2 Total 26 22 - 32 mmol/L 02/07/2023 13:41 [facility] Glucose 86 70 - 100 mg/dL 02/07/2023 13:41 [facility] BUN 12 10 - 26 mg/dL 02/07/2023 13:41 [facility] Comment: Slight hemolysis identified, interpret with caution as results may be affected due to hemolysis. Creatinine 1.22(H) 0.52 - 1.04 mg/dL 02/07/2023 13:41 [facility] eGFR 50(L) >60 mL/min/1.7 3m2 02/07/2023 13:41 [facility] Total Protein 6.5 6.3 - 8.2 g/dL 02/07/2023 13:41 [facility] Comment:Slight hemolysis rell ntified, interpret with caution as results may be affected due to hemolysis. Albumin 3.6 3.4 - 4.9 g/dL 02/07/2023 13:41 [facility] Comment:Slight hemolysis rell ntified, interpret with caution as results may be affected due to hemolysis. Alkaline Phosphatase 103 38 - 126 U/L 02/07/2023 13:41 [facility] Comment:Slight hemolysis rell ntified, hemolysis will decrease ALKP result. Interpret with caution as results may be affected due to hemolysis. AST 24 15 - 46 U/L 02/07/2023 13:41 [facility] Comment:Slight hemolysis rell ntified, interpret with caution as results may be affected due to hemolysis. ALT 16 <35 U/L 02/07/2023 13:41 [facility] Bilirubin, Total <0.5 <1.4 mg/dL 02/08/20 13:41 [facility] Calcium 8.5 8.5 - 10.5 mg/dL 02/07/2023 13:41 [facility] Albumin/Globulin Ratio 1.2 1.0 - 2.5 02/07/2023 13:41 [facility] Anion Gap 5 5 - 14 02/07/2023 13:41 [facility] Blood VENOUS BLOOD / Unknown Venipuncture / Unknown 02/07/2023 13:09 EDT 02/07/2023 13:12 EDT us Laurent Chaudhry MD CHEMISTRY & BLOOD GAS ORDER YANN Final Result [facility] [address] [place] [address] * (ABNORMAL) COMPLETE BLOOD COUNT AND DIFFERENTIAL (02/07/2023 13:09 EDT) WBC 2.73(L) 4.00 - 12.40 K/cmm 02/07/2023 13:33 [facility] RBC 4.04 3.86 - 5.04 M/cmm 02/07/2023 13:33 [facility] Hemoglobin 12.4 11.6 - 15.2 gm/dL 02/07/2023 13:33 [facility] HCT 36.3 34.9 - 44.4 % 02/07/2023 13:33 [facility] MCV 90 81 - 98 fl 02/07/2023 13:33 [facility] MCH 30.7 26.7 - 33.3 pg 02/07/2023 13:33 [facility] MCHC 34.2 32.1 - 35.9 gm/dL 02/07/2023 13:33 [facility] RDW-CV 15.0(H) <14.7 % 02/07/2023 13:33 [facility] RDW-SD 49.6 <50.4 fl 02/07/2023 13:33 [facility] PLT 82(L) 141 - 377 K/cmm 02/07/2023 13:33 [facility] MPV 10.3 9.5 - 12.7 fl 02/07/2023 13:33 [facility] % Neutrophils 72.9 % 02/07/2023 13:33 [facility] % Lymphocytes 15.4 % 02/07/2023 13:33 [facility] % Monocytes 9.5 % 02/07/2023 13:33 [facility] % Eosinophils 1.5 % 02/07/2023 13:33 [facility] % Basophils 0.7 % 02/07/2023 13:33 [facility] % Immature Grans 0.0 % 02/08/20 13:33 [facility] Absolute Neutrophils 1.99(L) 2.20 - 8.85 K/cmm 02/07/2023 13:33 [facility] Absolute Lymphocytes 0.42(L) 1.09 - 3.30 K/cmm 02/07/2023 13:33 [facility] Absolute Monocytes 0.26 0.10 - 0.80 K/cmm 02/07/2023 13:33 [facility] Absolute Eosinophils 0.04 0.03 - 0.61 K/cmm 02/07/2023 13:33 [facility] ABS Basophils 0.02 0.01 - 0.11 K/cmm 02/07/2023 13:33 [facility] Absolute Immature Grans 0.00 0.00 - 0.06 K/cmm 02/07/2023 13:33 [facility] Type of Differential: Auto 02/07/2023 13:33 [facility] Blood VENOUS BLOOD / Unknown Venipuncture / Unknown 02/07/2023 13:09 EDT 02/07/2023 13:12 EDT us Laurent Chaudhry MD PACKAGES & DNA PROBE ORDERA BLES Final Result [facility] [address] [place] [address] * TROPONIN I (02/07/2023 13:08 EDT) Troponin I (ng/mL) <0.034 <0.034 ng/mL 02/07/2023 15:07 EDT [facility] Blood VENOUS BLOOD / Unknown Venipuncture / Unknown 02/07/2023 13:08 EDT 02/07/2023 13:12 EDT Narrative [facility] - 02/07/2023 15:07 EDT The results of this assay can be falsely lowered due to the consumption of Biotin. us Nuria Oliver MD CHEMISTRY & BLOOD GAS ORDERABLE S Final Result Performing Organization Address [facility] Co de Phone Number [facility] [address] [place] [address] * HOLD GREEN TOP (02/07/2023 13:08 EDT) Hold Hold 02/07/2023 14:15 EDT [facility] Blood VENOUS BLOOD / Unknown Venipuncture / Unknown 02/07/2023 13:08 EDT 02/07/2023 13:12 EDT us Laurent Chaudhry MD LAB INFO SERVICE AND SUPPOR T & PHONE RESULT Final Result Performing Organization Address [facility]/ZIP Co de Phone Number [facility] [address] [place] [address] * HOLD BLUE TOP (02/07/2023 13:08 EDT) Hold Hold 02/07/2023 14:15 EDT [facility] Blood VENOUS BLOOD / Unknown Venipuncture / Unknown 02/07/2023 13:08 EDT 02/07/2023 13:12 EDT us Laurent Chaudhry MD LAB INFO SERVICE AND SUPPOR T & PHONE RESULT Final Result Performing Organization Address [facility]/ZIP Co de Phone Number [facility] [address] [place] [address] * BLOOD BANK HOLD (02/07/2023 13:08 EDT) Hold BB Spec will exp at 23:59, 3 days from collect date 02/07/2023 13:37 EDT [facility] Blood VENOUS BLOOD / Unknown Venipuncture / Unknown 02/07/2023 13:08 EDT 02/07/2023 13:17 EDT us Laurent Chaudhry MD BLOOD BANK TESTS Final Resu lt Performing Organization Address [facility] de Phone Number [facility] [address] [place] [address] * POCT US ED GUIDANCE PIV (02/07/2023 12:55 EDT) Anatomical Region Laterality Modality Other 02/07/2023 12:5 5 EDT Narrative 02/24/2023 15:14 EDT Study Date and Time: 2023-02-07 12:55 Study Author: Darshan MICHAEL ED Procedural Guidance - PIV: Indications: ?Indications for this focused Ultrasound:: Evaluation for a potential access site and selected vessel patency, Failed or difficult IV access ?Other Indications:: N/A Location: ?Laterality:: Left ?Site of peripheral line:: Superficial antecubital/forearm vein ?Other site:: N/A Complications: ?Procedure Complications:: None ?Other Complications:: N/A Interpretation: ?Exam interpretation:: Successful US-guided peripheral line insertion ?Other interpretation:: N/A Confirmatory Study: ?What confirmatory study was performed during patient ED evaluation?: POCUS visualization of catheter in lume, IV patency confirmed by flushing without resistance or tissue infiltration, POCUS visualization of agitated saline flush in lumen) ?Comments: N/A Signed by Darshan MICHAEL on 2023-02-07 13:26 Physician Attestation: ?I reviewed and independently interpreted these images. ??I was present for the brown and critical portions of the ultrasound imaging and agree with or have edited the findings as documented. Final Signature by Kathleen ARCHER on 2023-02-24 15:14 Procedure Note Kathleen Castro MD - 02/24/2023 Study Date and Time: 2023-02-07 12:55 Study Author: Darshan MICHAEL ED Procedural Guidance - PIV: Indications: Indications for this focused Ultrasound:: Evaluation for a potentialaccess site and selected vessel patency, Failed or difficult IV access Other Indications:: N/A Location: Laterality:: Left Site of peripheral line:: Superficial antecubital/forearm vein Other site:: N/A Complications: Procedure Complications:: None Other Complications:: N/A Interpretation: Exam interpretation:: Successful US-guided peripheral line insertion Other interpretation:: N/A Confirmatory Study: What confirmatory study was performed during patient ED evaluation?:POCUS visualization of catheter in lume, IV patency confirmed by flushingwithout resistance or tissue infiltration, POCUS visualization of agitatedsaline flush in lumen) Comments: N/A Signed by Darshan MICHAEL on 2023-02-07 13:26 Physician Attestation: I reviewed and independently interpreted these images. I was presentfor the brown and critical portions of the ultrasound imaging and agree withor have edited the findings as documented. Final Signature by Kathleen ARCHER on 2023-02-24 15:14 us Kathleen Castro MD IMG POCT US ORDERABLE S Final Result documented in this encounter Visit Diagnoses Diagnosis Generalized abdominal pain- Primary Abdominal pain, generalized documented in this encounter Administered Medications Inactive Administered Medications - up to 3 most recent administrations Medication Order MAR Action Action Date Dose Rate Site HYDROmorphone (PF) (DILAUDID) 0.5 mg/0.5 mL syringe 0.5 mg 0.5 mg, intravenous, NOW X1, 1 dose, On Tue02/07/23 at 1500, STAT Given 02/07/2023 14:53 EDT 0.5 mg HYDROmorphone (PF) (DILAUDID) 0.5 mg/0.5 mL syringe 1 mg 1 mg, intravenous, NOW X1, 1 dose, On Tue02/07/23 at 1700, STAT Given 02/07/2023 17:12 EDT 1 mg iohexoL (OMNIPAQUE 350) solution 100 mL 100 mL, intravenous, Once in imaging, 1 dose, Starting on Tue02/07/23 at 1500, Until Tue02/07/23 at 1511, Routine, Imaging Protocol Orders Given 02/07/2023 15:11 EDT 95 mL ondansetron (PF) (ZOFRAN) injection 4 mg 4 mg, intravenous, NOW X1, 1 dose, On Tue02/07/23 at 1445, STAT Given 02/07/2023 14:42 EDT 4 mg ondansetron (PF) (ZOFRAN) injection 4 mg 4 mg, intravenous, NOW X1, 1 dose, On Tue02/07/23 at 1700, STAT Given 02/07/2023 17:29 EDT 4 mg documented in this encounter Active and Recently Administered Medications Times are shown in EDT. Scheduled Medication Order 02/05/2023 02/06/2023 02/07/2023 HYDROmorphone (PF) (DILAUDID) 0.5 mg/0.5 mL syringe 0.5 mg (COMPLETED) 0.5 mg, intravenous, NOW X1, 1 dose, On Tue02/07/23 at 1500, STAT 1453 (Given - Provid er: Julissa Moran RN) HYDROmorphone (PF) (DILAUDID) 0.5 mg/0.5 mL syringe 1 mg (COMPLETED) 1 mg, intravenous, NOW X1, 1 dose, On Tue02/07/23 at 1700, STAT 1712 (Given - Provid er: Julissa Moran RN) iohexoL (OMNIPAQUE 350) solution 100 mL (COMPLETED) 100 mL, intravenous, Once in imaging, 1 dose, Starting on Tue02/07/23 at 1500, Until Tue02/07/23 at 1511, Routine, Imaging Protocol Orders 151 (Given - Provid er: Vincent Lambert) ondansetron (PF) (ZOFRAN) injection 4 mg (COMPLETED) 4 mg, intravenous, NOW X1, 1 dose, On Tue02/07/23 at 1445, STAT 1442 (Given - Provid er: Julissa Moran RN) ondansetron (PF) (ZOFRAN) injection 4 mg (COMPLETED) 4 mg, intravenous, NOW X1, 1 dose, On Tue02/07/23 at 1700, STAT 1729 (Given - Provid er: Julissa Moran RN) documented in this encounter Care Teams Radiology Therapist Relationship Specialty Start Date End Date Emigdio Veronica MD [address] [place] [phone] PCP - General Internal Medicine - Primary Care 05/22/20 02/21/24 documented as of this encounter
--- OUTSIDE RECORDS SUMMARY | 2024-11-22 16:58 | XMS_ITS | Encounter Summary ---
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 Not [...] Date of Assessment Author No 12/14/2022 1:55 Andrea Chaney RN * Do you have serious difficulty [...] Soila Arora RN documented in this encounter Plan of Treatment Upcoming Encounters Date Type Department Care Team (Late st Contact Info) Description 01/04/2025 13:00 EST Office Visit [facility] Ophthalmology - [address] [phone] Gagandeep Rome MD [address] [facility], [address] [place] [phone] 02/11/2025 13:30 EDT Telemedicine [facility] Hematology & Oncology - [address] [phone] Dana aPdilla MD [address] [facility], [address] [place] [phone] documented as of this encounter Procedures Procedure Name Priority Date/Time Associated Diagnosis Comments COMPLETE BLOOD COUNT Routine 02/04/2023 10:29 EDT Thrombocytopenia ([facility]) documented in this encounter Results * (ABNORMAL) COMPLETE BLOOD COUNT (02/04/2023 10:29 EDT) WBC 2.84(L) 4.00 - 12.40 K/cmm 02/04/2023 11:54 EDT [facility] RBC 4.08 3.86 - 5.04 M/cmm 02/04/2023 11:54 EDT [facility] Hemoglobin 12.4 11.6 - 15.2 gm/dL 02/04/2023 11:54 EDT [facility] HCT 37.1 34.9 - 44.4 % 02/04/2023 11:54 EDT [facility] MCV 91 81 - 98 fl 02/04/2023 11:54 EDT [facility] MCH 30.4 26.7 - 33.3 pg 02/04/2023 11:54 EDT [facility] MCHC 33.4 32.1 - 35.9 gm/dL 02/04/2023 11:54 T [facility] RDW-CV 15.4(H) <14.7 % 02/04/2023 11:54 EDT [facility] RDW-SD 50.9(H) <50.4 fl 02/04/2023 11:54 EDT [facility] PLT 78(L) 141 - 377 K/cmm 02/04/2023 11:54 EDT [facility] MPV 11.2 9.5 - 12.7 fl 02/04/2023 11:54 EDT [facility] Blood VENOUS BLOOD / Unknown Venipuncture / Unknown 02/04/2023 10:29 EDT 02/04/2023 10:29 EDT us Dana Padilla MD HEMATOLOGY & PF4 ORDERABLES Pricila suri Result [facility] [address] [place] [address] documented in this encounter Visit Diagnoses Diagnosis Thrombocytopenia ([facility]) Thrombocytopenia, unspecified documented in this encounter Care Teams Career Based Intervention Coordinator Relationship Specialty Start Date End Date Emigdio Veronica MD [address] [place] [phone] PCP - General Internal Medicine - Primary Care 05/22/20 02/21/24 documented as of this encounter
--- OUTSIDE RECORDS SUMMARY | 2024-11-22 16:58 | XMS_ITS | Encounter Summary ---
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 TARGET GOAL OF TWO BOWEL MOVEMENTS DAILY). 900 mL 1 01/20/2023 documented in this encounter Miscellaneous Notes * Telephone Encounter - Baldemar Taylor RN - 01/20/2023 1054 EST Medication(s) Requested: Lactulose 10 gram/15 ml [facility]acy: [facility] Is patient out of medication? unknown Last Refill Date: 12/27/22 Last Visit Date with Ordering Provider: 12/23/22 Next Non-Acute Visit Date Scheduled with Care Team: 01/21/23 BALDEMAR TAYLOR RN 01/20/2023 14:35 documented in this encounter Plan of Treatment Upcoming Encounters Date Type Department Care Team (Late st Contact Info) Description 01/04/2025 13:00 EST Office Visit [facility] Ophthalmology - [address] [phone] Gagandeep Rome MD [address] [place] [address] [address] [place] [phone] 02/11/2025 13:30 EDT Telemedicine [facility] Hematology & Oncology [address] [phone] Dana Padilla MD [address] [place] [address], [facility] [address] [place] [phone] documented as of this encounter Visit Diagnoses Not on filedocumented in this encounter Discontinued Medications Medication Sig Discontinue Reason Start Date End Da te lactulose (CHRONULAC) 10 gram/15 mL solution TAKE 15-30ML BY MOUTH DAILY NEEDED (CONSTIPATION. TARGET GOAL OF TWO BOWEL MOVEMENTS DAILY). 12/27/2022 01/20/2023 documented as of this encounter Care Teams Dough Machine Operator Relationship Specialty Start Date End Date Emigdio Veronica MD [address] [place] [phone] PCP - General Internal Medicine - Primary Care 05/22/20 02/21/24 documented as of this encounter
--- OUTSIDE RECORDS SUMMARY | 2024-11-22 16:59 | XMS_ITS | Encounter Summary ---
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 Answer Date of Assessment Author No 06/16/2022 0:00 EDT Soila Murphy RN * Are you blind or do you have serious difficulty seeing, even when wearing glasses? Answer Date of Assessment Author No 06/16/2022 0:00 EDT Soila Murphy RN * Do you have serious difficulty [...] encounter Miscellaneous Notes * Telephone Encounter - Anisa Flores RN - 12/09/2022 1041 EST Spoke with pt and relayed (Mychart message) titration study results. Verbalized understanding, no barrier to learning. Routed message to [facility] Pool for scheduling. * Telephone Encounter - Anisa Flores RN - 12/08/2022 0804 EST Mychart to pt. documented in this encounter Plan of Treatment Upcoming Encounters Date Type Department Care Team (Late st Contact Info) Description 01/04/2025 13:00 EST Office Visit [facility] Ophthalmology - [address] [phone] Gagandeep Rome MD [address] [place] [address] [address] [place] [phone] 02/11/2025 13:30 EDT Telemedicine [facility] Hematology & Oncology [address] [phone] Dana Padilla MD [address] [place] [address], [address] [place] [phone] documented as of this encounter Visit Diagnoses Not on filedocumented in this encounter Care Teams Qa Reviewer Relationship Specialty Start Date End Date Emigdio Veronica MD [address] [place] [phone] PCP - General Internal Medicine - Primary Care 05/22/20 02/21/24 documented as of this encounter
--- OUTSIDE RECORDS SUMMARY | 2024-11-22 16:59 | XMS_ITS | Encounter Summary ---
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 Fernanda Avila Gary Francis, MD; Tray Veronica Just seeing this referral for IR biopsy- we need updated orders in order to schedule this request Per your notes: Biopsy of left illiac lymph node noted on recent PET/CT concerning for possible malignancy per radiology This ambulatory consult only works for office visits- we need the biopsy ordered as a radiology request Please update by doing the following: - patients chart, encounters, orders only- bottom left select add order Type in IR biopsy and specify the location, path requested and any further details for triage This will go to the providers for insight into modality to complete the biopsy and any scheduling info we need. If you have questions please reach out to [phone] option 1 I have denied this referral at this time Thank you Fernanda Interventional radiology clinic * Emigdio Veronica MD - 12/15/2022 0846 EST Biopsy order signed documented in this encounter Plan of Treatment Upcoming Encounters Date Type Department Care Team (Late st Contact Info) Description 01/04/2025 13:00 EST Office Visit [facility] Ophthalmology - [address] [phone] Gagandeep Rome MD [address] [place] [address], [address] [place] [phone] 02/11/2025 13:30 EDT Telemedicine [facility] Hematology & Oncology - [address] [phone] Dana Padilla MD [address] [place] [address], [facility] [address] [place] [phone] documented as of this encounter Visit Diagnoses Diagnosis Iliac lymphadenopathy- Primary documented in this encounter Care Teams Stone Grader Relationship Specialty Start Date End Date Emigdio Veronica MD [address] [place] [phone] PCP - General Internal Medicine - Primary Care 05/22/20 02/21/24 documented as of this encounter
--- OUTSIDE RECORDS SUMMARY | 2024-11-22 16:59 | XMS_ITS | Encounter Summary ---
Author Organization [facility] Address [address] [place] [address] Care Team Providers Care Production Broaching Machine Operator Name Role Phone Emigdio Veronica MD Primary Care Provider + Reason for Visit * Reason Onset Date Comments Hospital Discharge Follow Up 12/20/2022 Foot Swelling 12/20/2022 Joint Swelling 12/20/2022 Encounter Details Date Type Department Care Team (Late st Contact Info) Description 12/20/2022 Telephone [facility] Adult Primary Care - [place] [address] [place] [address] Sharon Joseph RN Hospital Discharge Follow Up; Foot Swelling; Joint Swelling Social History Tobacco Use Types Packs/Day [...] 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 Daily Max: 15 mg 70 Tablet 12/22/2022 01/12/2023 documented in this encounter Miscellaneous Notes * Telephone Encounter - Cris Copeland - 12/22/2022 1427 EST Stockings DME faxed to [facility] * Telephone Encounter - Karol Hoff RN - 12/22/2022 1400 EST Spoke with patient and updated on oxycodone. OV scheduled for tomorrow. * Telephone Encounter - Karol Hoff RN - 12/22/2022 0841 EST Tried to reach patient multiple times to discus swelling and recommendation from Dr Veronica for an office visit this morning. Also to discus oxycodone fill being for [address] Veronica's note below. * Telephone Encounter - Ebony Toscano - 12/21/2022 1614 EST Pt calling again today, 12.21.22, regarding her foot swelling. She says her feet are so swollen that she cannot get her slippers on. * Telephone Encounter - Emigdio Veronica MD - 12/21/2022 1528 EST Given her hospitalization and discharge with oxycodone tablets she should have a surplus of oxycodone. Four days in the hospital would result in her having 12 extra tablets and she received 10 tablets on discharge. I will sign for a refill for her oxycodone tomorrow, but with a reduction in her pill counts. Instead of 84 tablets I will sign for 70. Compression stockings signed * Telephone Encounter - Karol Hoff RN - 12/21/2022 1402 EST Spoke to patient. She was in the hospital 12/14-12/18. While in patient she could have 1 tab oxycodone 5 mg up to every 4 hours. When she was discharged they advised she reduce back down to her pre admission dose of 1 tab up to every 8 hours. If she hadn't been hospitalized she would have been due for a refill 12/22. She was hospitalized and had another fill of 10 tablets from the discharging provider on 12/18. Patient requesting her oxycodone be filled tomorrow as scheduled. Patient also reports increased bilateral leg swelling, which she was also having in patient. She iscontinuing on her furosemide 60 mg and spironolactone 100 mg. Her weight in patient was 265, today at home 260. In September here was 252. Patient requesting new sets of compression stockings to [facility]. See pended. Patient also wanted to update this office is working on doing the prior auths for the biopsies, butthe answer so far is no. Office is still trying. * Telephone Encounter - Noemi Hall - 12/21/2022 1308 EST Patient states that she is having a lot of swelling in feet and ankles. feels like the skin is pulling it is so bad * Telephone Encounter - Noemi Hall - 12/21/2022 1303 EST Patient is leaving tomorrow for two weeks and needs to spanish moss picker on Wednesday morning before she leaves town * Telephone Encounter - Sharon Joseph RN - 12/20/2022 0835 EST Hospital Discharge Follow Up: Risk Assessment: high 95% Reason for admission: Cirrhosis Symptoms improving? Yes, tired and body aches Discharge instructions available? yes Medications Reviewed/prescriptions filled? yes Support at home? yes Home health service/issues? yes Questions about discharge instructions? Pt states that she needs a refill on the oxycodone Follow-up visit scheduled? Yes 12/30/22 Education/Plan: pt offered other appts but pt only wants to see Scottie ELDRIDGE or Dr Glenys JOSEPH RN 12/20/2022 Chronic controlled medication yes Last med check visit 11/25/22 Future visit scheduled Yes 12/30/22 Vpms check Yes 09/17/23 Prescription agreement Yes 06/25/23 Patient due for refill yes Is there a plan for tapering of medication noted in chart? unknown documented in this encounter Plan of Treatment Upcoming Encounters Date Type Department Care Team (Late st Contact Info) Description 01/04/2025 13:00 EST Office Visit [facility] Ophthalmology - [address] [phone] Gagandeep Rome MD [address] [place] [address], [place] [address] [place] [phone] 02/11/2025 13:30 EDT Telemedicine [facility] Hematology & Oncology - [address] [phone] Dana Padilla MD [address] [place] [address], [address] [place] [phone] documented as of this encounter Visit Diagnoses Diagnosis Edema, leg- Primary Edema documented in this encounter Orders Equipment Count Last Ordered Date First Orde red Date COMPRESSION STOCKINGS 1 12/21/2022 documented in this encounter Care Teams Production Broaching Machine Operator Relationship Specialty Start Date End Date Emigdio Veronica MD [address] [place] [phone] PCP - General Internal Medicine - Primary Care 05/22/20 02/21/24 documented as of this encounter
--- OUTSIDE RECORDS SUMMARY | 2024-11-22 16:59 | XMS_ITS | Encounter Summary ---
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 Not [...] EST Office Visit [facility] Ophthalmology - [address] [address] Gagandeep Rome MD [address] [facility], [address] [place] [phone] 02/11/2025 13:30 EDT Telemedicine [facility] Hematology & Oncology - [address] [phone] Dana Padilla MD [address] [facility], [facility] [address] [place] [phone] documented as of this encounter Visit Diagnoses Not on filedocumented in this encounter Additional Health Concerns Infection Onset Date Last Indicated Resolved Time R/O COVID-19 12/14/2022 12/14/2022 12/14/2022 9:10 EST documented as of this encounter Care Teams Endocrinology Teacher Relationship Specialty Start Date End Date Emigdio Veronica MD [address] [place] [phone] PCP - General Internal Medicine - Primary Care 05/22/20 02/21/24 documented as of this encounter
--- OUTSIDE RECORDS SUMMARY | 2024-11-22 16:59 | XMS_ITS | Encounter Summary ---
Author Organization [facility] Address [address] [place] [address] Care Team Providers Care Dog Show Judge Name Role Phone Emigdio Veronica MD Primary Care Provider + Reason for Visit * Reason Onset Date Comments Appointment Related 11/19/2022 Encounter Details Date Type Department Care Team (Late st Contact Info) Description 11/19/2022 Telephone [facility] Sleep Program - [address] [address] Vivian Black MD [address] [place] [address], [address] [place] [phone] Appointment Related Social History Tobacco Use Types [...] 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 Answer Date of Assessment Author No 06/16/2022 0:00 Soila Arora RN * Are you blind or do you have serious difficulty seeing, even when wearing glasses? Answer Date of Assessment Author No 06/16/2022 0:00 Soila Arora RN * Do you have serious difficulty [...] encounter Miscellaneous Notes * Telephone Encounter - Janeth Burns - 11/19/2022 1009 EST Patient called to question the one hour stated on the sleep study. I explained it automatically does that but it is an over night sleep study documented in this encounter Plan of Treatment Upcoming Encounters Date Type Department Care Team (Late st Contact Info) Description 01/04/2025 13:00 EST Office Visit [facility] Ophthalmology - [address] [phone] Gagandeep Rome MD [address] [place] [address], [facility] [address] [place] [phone] 02/11/2025 13:30 EDT Telemedicine [facility] Hematology & Oncology - [address] [phone] Dana Padilla MD [address] [place] [address], [facility] [address] [place] [phone] documented as of this encounter Visit Diagnoses Not on filedocumented in this encounter Care Teams Dog Show Judge Relationship Specialty Start Date End Date Emigdio Veronica MD [address] [place] [phone] PCP - General Internal Medicine - Primary Care 05/22/20 02/21/24 documented as of this encounter
--- OUTSIDE RECORDS SUMMARY | 2024-11-22 16:59 | XMS_ITS | Encounter Summary ---
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 I left her know the procedure was not approved at this time and that she should follow up with her PCP, Dr Veronica, for next steps. documented in this encounter Plan of Treatment Upcoming Encounters Date Type Department Care Team (Late st Contact Info) Description 01/04/2025 13:00 EST Office Visit [facility] Ophthalmology - [address] [phone] Gagandeep Rome MD [address] [place] [address] [address] [place] [phone] 02/11/2025 13:30 EDT Telemedicine [facility] Hematology & Oncology - [address] [phone] Dana Padilla MD [address] [place] [address], [facility] [address] [place] [phone] documented as of this encounter Visit Diagnoses Not on filedocumented in this encounter Care Teams Faro Dealer Relationship Specialty Start Date End Date Emigdio Veronica MD [address] [place] [phone] PCP - General Internal Medicine - Primary Care 05/22/20 02/21/24 documented as of this encounter
--- OUTSIDE RECORDS SUMMARY | 2024-11-22 16:59 | XMS_ITS | Encounter Summary ---
Author Organization [facility] Address [address] [place] [address] Care Team Providers Care Clinical Specialist Medical Device Name Role Phone Emigdio Veronica MD Primary Care Provider + Reason for Referral * Consult (Routine/Next Available) - Closed Specialty Diagnoses / Procedures Referred By Contact Referred To Contact Gastroenterology and Hepatology Diagnoses Other cirrhosis of liver (HCC-CMS) Emigdio Veronica MD Phone: tel:[phone] fax:[phone] [facility] Gastroenterology - [facility] [place] [address] [place] [address] Phone: tel: fax: Referral ID Status Reason Start Date Expiration Date V isits Requested Visits Authorized [id number] Closed Specialty Services Required 11/28/2022 1 1 Question Answer Reason for Request: Follow-up on decompensated liver cirrhosis. 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 60 Each 1 11/25/2022 12/02/2022 documented in this encounter Progress Notes * Emigdio Veronica MD - 11/25/2022 1130 EST Tara Yun is a 62 y.o. female with a PMHx of COPD, obesity, CKD, pancytopenia, decompensated liver cirrhosis secondary to NAFLD, chronic pain syndrome PRIMARY CARE PROVIDER: Emigdio Veronica CHIEF COMPLAINT: Chief Complaint Patient presents with ??? Chronic Pain ??? Edema SUBJECTIVE: Tara Yun presents today for a follow-up visit. Similar to previous visits she reports a primary complaint of high diffuse chronic pain burden as well as chronic fatigue and insomnia. She also reports acute on chronic mental fog and confusion and significant constipation stating that she has not had a successful bowel movement in 6 days. She is notably due to establish care with the comprehensive pain next week 12/02/2022 for discussionon options for pain management. She notes inadequate pain control on oxycodone 5 mg 3 times daily as needed and gabapentin 300 mg 3 times daily. She reports intolerance of of several tricyclic antidepressant agents, SNRIs, and pregabalin previously. She has been instructed by her hepatology team toavoid acetaminophen due to her thrombocytopenia. Due to the presence of kidney disease she is also been instructed to avoid NSAIDs. She confirms she is scheduled for a repeat polysomnogram tomorrow to evaluate her potential CPAP pressure needs for treatment of HUEY. She notes she was previously prescribed lactulose to good effect at managing constant in the past and would be interested in restarting this therapy for her current difficulty with passing bowel movements. She expresses concern that her current mental fog might relate to a rising ammonia level related to her liver disease. Per chart review it appears she has not followed up with GI since a inpatient hospitalization for decompensated liver cirrhosis in September 2021. She is open to reestablishing care with Dr. Moseley her drop hammer pile driver operator for further evaluation managing her liver disease. ROS as above Medications and history reviewed. Current Outpatient Medications Medication ??? albuterol 90 mcg/actuation inhaler ??? chlorzoxazone (PARAFON FORTE) 500 mg tablet ??? diclofenac sodium gel ??? ferrous sulfate 324 mg (65 mg iron) tablet,delayed release (DR/EC) ??? fluticasone propionate (FLOVENT DISKUS) 100 mcg/actuation blister with device ??? furosemide (LASIX) 20 mg tablet ??? gabapentin (NEURONTIN) 300 mg capsule ??? INCRUSE ELLIPTA 62.5 mcg/actuation ??? ketotifen (ZADITOR) 0.025 % (0.035 %) ophthalmic solution ??? lactulose (CEPHULAC) 20 gram packet ??? levothyroxine (SYNTHROID) 25 mcg tablet ??? lidocaine 2 % solution ??? lidocaine 4 % patch ??? naloxone (NARCAN) 4 mg/actuation nasal spray ??? ondansetron (ZOFRAN) 4 mg tablet ??? oxyCODONE (ROXICODONE) 5 mg immediate release tablet ??? OXYGEN-AIR DELIVERY SYSTEMS MISC ??? pantoprazole (PROTONIX) 40 mg tablet ??? sertraline (ZOLOFT) 50 mg tablet ??? spironolactone (ALDACTONE) 100 mg tablet ??? sucralfate (CARAFATE) 1 gram tablet ??? traZODone (DESYREL) 100 mg tablet No current facility-administered medications for this visit. Facility-Administered Medications Ordered in Other Visits Medication Route Frequency ??? albuterol (ACCUNEB) 2.5 mg /3 mL (0.083 %) nebulizer solution OBJECTIVE: BP 101/56 (BP Cuff Location: Left arm, BP Patient Position: Sitting, BP Cuff Sizes: Adult, long) Pulse 70 Comment: r Temp 36.5 ??C (97.7 ??F) (Skin) Resp 16 Wt (!) 114.8 kg (253 lb) BMI 43.43 kg/m?? Gen: Chronically ill appearing middle age obese female, NAD HEENT: EOMI, PERRL, oropharynx moist, conjunctiva pink, no scleral injection/ icterus Skin: No rashes or erythema, intact Neuro: A&Ox3, CN II through XII grossly intact Recent Labs/Imaging: Reviewed in [facility] ASSESSMENT and PLAN: Tara was seen today for chronic pain and edema. Diagnoses and all orders for this visit: Other cirrhosis of liver (HCC), confusion, fatigue: Suspect multifactorial source of patient's reports of mental fog and fatigue. Patient has reported extremely poor sleep over the last several months related to untreated HUEY. Patient is also on low-dose however high frequency opiate therapy in thesetting of both liver and kidney disease for chronic pain syndrome which may affect her mental faculties. Last CMP obtained this past August reflected only mild elevation in alk phosphatase to >140, however cannot exclude worsening liver disease as a contributor to patient's cognition complaints. Per chart review patient was advised to reestablish with her drop hammer pile driver operator following her last hospital admission for decompensated liver cirrhosis in September 2021. Will refer back to otology to reestablish care and consult on decompensated liver cirrhosis management. - AMB CONS/FOLLOW UP HEPATOLOGY; Future - COMPREHENSIVE METABOLIC PANEL (CMP); Future - PROTIME; Future -Heavily encourage compliance with plan to obtain split polysomnogram tomorrow and to follow-up with sleep medicine obtaining CPAP therapy Constipation, unspecified constipation type: Again high suspicion for multifactorial source. Cannotexclude opiate induced constant patient however and discussed this risk with the patient. -We will restart lactulose (CEPHULAC) 20 gram packet; Take 1 Packet by mouth daily. Encourage patient to follow-up on response to lactulose within the next 2 to 3 days. Discussed goal of uptitrating lactulose to obtain at least 2-3 bowel movements daily. Chronic pain syndrome: Patient continues to report an overall high burden of pain with pain foci inher lower back, generalized abdomen (believed to be related to history of portal vein thrombosis and ascites) and her lower extremities. At this time patient has limited pain treatment options due toa poor tolerance of both SNRIs and TCAs and inability to take APAP or NSAIDs due to other conditions. She remains on low-dose opiate therapy with oxycodone at 5 mg 3 times daily as needed. We discussed my hesitancy to further titrate her opiate dose higher given the substantial risks of adverse effects with her known history of COPD, possible central and obstructive sleep apnea and poor opiate clearance with her combined liver and renal disease. Additionally we discussed that further dose increases in opiate therapy could acutely worsen active complaints of mental fog and constipation. She isin agreement with the next step plan of establishing with comprehensive pain clinic next week to discuss nonpharmacologic interventions for pain control or possible alternative pain regimens. -Establish with comprehensive pain clinic as scheduled -For now continue oxycodone 5 mg 3 times daily as needed -For now continue gabapentin 300 mg 3 times daily as needed. Very low threshold to dose adjust depending on fluctuations in kidney filtration Health Care Maintenance Health Maintenance Topic Date [...] 06/09/2023 ??? Opioid Prescription Agreement 06/25/2023 ??? Opioid Informed Consent 08/11/2023 ??? Review Of Systems Adverse Effects 08/11/2023 ??? Functional Assessment 08/11/2023 ??? Current Opioid Misuse Measurement 08/11/2023 ??? [place] Prescription Monitoring System 09/17/2023 ??? Pneumococcal Immunization (4 - PPSV23 if available, else PCV20) 2025 ??? Lipid Profile Screening (Cholesterol) 04/16/2027 ??? Tetanus (Adult) Immunization 03/17/2029 ??? HIV Screening Completed ??? Shingles Immunization Completed ??? Hepatitis C Screen Completed ??? Influenza Immunization (Adult) Completed ??? Pertussis (Adult) Immunization Discontinued F/u: Return in about 2 months (around 01/23/2023) for f30. I spent a total of 36 minutes with this patient today face to face, in chart review and in documentation and 30 minutes of that time was spent on education and counseling for cirrhosis of liver, confusion, fatigue, HUEY, constipation, chronic pain syndrome and healthcare maintenance. Some of this note was transcribed with [employer] dictating software. While it was proofread, it may still contain unnoticed grammatical or word errors due to incorrect transcribing. Emigdio Veronica MD 11/28/2022 12:31 documented in this encounter Plan of Treatment Upcoming Encounters Date Type Department Care Team (Late st Contact Info) Description 01/04/2025 13:00 EST Office Visit [facility] Ophthalmology - [address] [id number] Gagandeep Rome MD [address] [facility], [address] [place] [id number] 02/11/2025 13:30 EDT Telemedicine [facility] Hematology & Oncology - [facility] [address], [place] [id number] Dana Padilla MD [address] [facility], [facility], [address] [place] [address] Scheduled Referrals Name Type Priority Associated Diagnoses Order Schedule AMB CONS/FOLLOW UP HEPATOLOGY Outpatient Referral Routine/Next Available Other cirrhosis of liver (HCC-CMS) Expected: 12/05/2022 (Approximate), Expires: 11/25/2023 documented as of this encounter Results * (ABNORMAL) PROTIME (01/04/2023 12:38 EST) I.N.R. 1.2(H) 0.9 - 1.1 Ratio 01/04/2023 14:06 EST [facility] Pro Time 13.6(H) 9.7 - 12.8 secs 01/04/2023 14:06 EST [facility] Blood VENOUS BLOOD / Unknown Venipuncture / Unknown 01/04/2023 12:38 EST 01/04/2023 12:38 EST Narrative [facility] - 01/04/2023 14:06 EST Moderate Intensity Coumadin INR = 2.0-3.0 Adjustments in anticoagulant therapy dose should be based on the INR and NOT on the Protime. us Emigdio Veronica MD HEMATOLOGY & PF4 ORDERAB LES Final Result [facility] [address] [place] [address] * (ABNORMAL) COMPREHENSIVE METABOLIC PANEL (CMP) (01/04/2023 12:38 EST) Sodium 139 136 - 145 mmol/L 01/04/2023 14:26 EST [facility] Potassium 4.6 3.5 - 5.0 mmol/L 01/04/2023 14:26 [facility] Chloride 101 96 - 110 mmol/L 01/04/2023 14:26 [facility] CO2 Total 29 22 - 32 mmol/L 01/04/2023 14:26 [facility] Glucose 91 70 - 100 mg/dL 01/04/2023 14:26 [facility] BUN 12 10 - 26 mg/dL 01/04/2023 14:26 [facility] Creatinine 1.21(H) 0.52 - 1.04 mg/dL 01/04/2023 14:26 [facility] eGFR 51(L) >60 mL/min/1.7 3m2 01/04/2023 14:26 [facility] Total Protein 7.1 6.3 - 8.2 g/dL 01/04/2023 14:26 [facility] Albumin 4.0 3.4 - 4.9 g/dL 01/04/2023 14:26 [facility] Alkaline Phosphatase 90 38 - 126 U/L 01/04/2023 14:26 [facility] AST 29 15 - 46 U/L 01/04/2023 14:26 [facility] ALT 18 <35 U/L 01/04/2023 14:26 [facility] Bilirubin, Total 1.1 <1.4 mg/dL 01/04/20 14:26 [facility] Calcium 9.0 8.5 - 10.5 mg/dL 01/04/2023 14:26 [facility] Albumin/Globulin Ratio 1.3 1.0 - 2.5 01/04/2023 14:26 [facility] Anion Gap 9 5 - 14 01/04/2023 14:26 [facility] Blood VENOUS BLOOD / Unknown Venipuncture / Unknown 01/04/2023 12:38 EST 01/04/2023 12:38 EST us Emigdio Veronica MD CHEMISTRY & BLOOD GAS OR DERABLES Final Result [facility] [address] [place] [address] documented in this encounter Visit Diagnoses Diagnosis Other cirrhosis of liver (HCC-CMS)- Primary Confusion Unspecified psychosis Other fatigue Constipation, unspecified constipation type Chronic pain syndrome Healthcare maintenance Routine general medical examination at a health care facility documented in this encounter Discontinued Medications Medication Sig Discontinue Reason Start Date End Da te ALPRAZolam (XANAX) 0.5 mg tablet Therapy completed 11/25/2022 amitriptyline (ELAVIL) 10 mg tablet Patient Stopped Taking 11/25/2022 raNITIdine (ZANTAC) 150 mg tablet Alternate therapy 11/25/2022 documented as of this encounter Care Teams Clinical Specialist Medical Device Relationship Specialty Start Date End Date Emigdio Veronica MD [address] [place] [id number] PCP - General Internal Medicine - Primary Care 05/22/20 02/21/24 documented as of this encounter
--- OUTSIDE RECORDS SUMMARY | 2024-11-22 16:59 | XMS_ITS | Encounter Summary ---
Author Organization [facility] Address [address] [place] [address] Care Team Providers Care Strategic Planner Name Role Phone Emigdio Veronica MD Primary Care Provider + Reason for Referral * Consult (Routine/Next Available) - Receiving Office to Obtain Authorization Specialty Diagnoses / Procedures Referred By Serene huitron Referred To Contact Hematology Diagnoses Portal vein thrombosis Amilcar Ramesh MD [address] [place] [address] Phone: tel: fax: [facility] Hematology & Oncology - [facility] [address] [place] [address] Phone: tel: fax: Referral ID Status Reason Start Date Expiration Date Visits Requested Visits Authorized [id number] Receiving Office to Obtain Authorization Specialty Services Required 3 1 1 Question Answer Reason for Request: Follow up for progressive PVT, already follows in [facility], can see an IVA about possibly increasing to full dose Comments Will be discharged on 60 mg of enoxaparin (kidney function slightly elevated so this will be roughly intermediate dose and she has a history of bleeding on lovenox and apixaban) Reason for Visit * Reason Comments Chest Pain Patient brought in b y ambulance from home for c/o right sided chest pain. She recently had a PET scan last week where they found new nodules in her adrenal glands. She is to have a biopsy and colonoscopy to evaluate these new lesions. She also describes a painful cough and recently, has been coughing up thick mucous. * Auth/Cert (Routine) Specialty Diagnoses / Procedures Referred By Serene t Referred To Contact Diagnoses Sepsis (HCC-CMS) Cirrhosis (HCC-CMS) Referral ID Status Reason Start Date Expiration Date Visits Re quested Visits Authorized [id number] 1 1 Encounter Details Date Type Department Care Team (Late st Contact Info) Description 12/14/2022 1:50 EST - 12/18/2022 12:40 EST Hospital Encounter [facility] General Medicine Unit [address] [place] [address] [phone] Zully Cook MD [address] [place] [address] [phone] Jayden Brown MD [address] [place] [address] [phone] Scottie Joya MD [address] [place] [address] [phone] Toya Reyez MD [address] [phone] Sepsis (HCC-CMS) (Primary Dx); Hypotension, unspecified hypotension type; Alcoholic cirrhosis of liver without ascites (HCC-CMS); Portal vein thrombosis; Hypercoagulable state (HCC-CMS); History of bleeding ulcers; Superior mesenteric vein thrombosis (HCC-CMS); Right foot pain Discharge Disposition: Home or Self Care [...] 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 No / Unsure 12/14/2022 1:59 EST documented as of this encounter Last Filed Vital Signs Vital Sign Reading Time Taken Comments Blood Pressure 117/59 12/18/2022 0906 EST Pulse 66 12/17/2022 0019 EST Temperature 36.2 ??C (97.2 ??F) 12/18/2022 0906 EST Respiratory Rate 16 12/18/2022 0906 EST Oxygen Saturation 95% 12/18/2022 0906 EST Inhaled Oxygen Concentration - - Weight 119.9 kg (264 lb 4.8 oz) 12/18/2022 0516 EST Height 162.6 cm (5' 4) 12/14/2022 0157 EST Body Mass Index 45.37 12/14/2022 0157 EST documented in this encounter [...] Murphy RN documented in this encounter Discharge Summaries * Osiris Shaw MD - 12/18/2022 0924 EST HOSPITAL MEDICINE DISCHARGE SUMMARY Primary Care Provider: Emigdio Veronica Attending Physician: Toya Reyez MD Admit Date: 12/14/22 Discharge Date: 12/18/22 Disposition (location): Home Condition at Discharge: Improved Reason for Admission (chief complaint): Back pain Principal/Final Diagnosis: Hypovolemic shock Additional Problems Managed in the Hospital: Active Hospital Problems Diagnosis Date Noted ??? Right foot pain ??? Hypercoagulable state (HCC-CMS) (HCC) ??? History of bleeding ulcers ??? Superior mesenteric vein thrombosis (HCC-CMS) (HCC) ??? Cirrhosis (HCC-CMS) (HCC) 12/14/2022 ??? Hypotension 02/11/2022 Resolved Hospital Problems Diagnosis Date Noted Date Resolved ??? *Sepsis (HCC) 12/14/2022 12/16/2022 Transition of care: [facility] Transition of Care report automatically routed to PCP office on discharge. Clinical Issues Needing Follow-up 1. Pertinent medication changes: - START 60 Lovenox and follow up with Hematology outpatient 2. Anticoagulation on discharge: Yes - new start, will follow up with THP clinic Indication(s): Hypercoagulable state with acquired protein C and S deficiencies Medication: Lovenox 60 See Hematology service note from 12/15/[address] Pizarro and Dr[address] Ramesh for further details. historyof bleeding and concomitant cirrhosis. Will follow up with THP clinic. 3. Changes to goals of care at time of discharge (if applicable): n/a Hospital Course: Tara Boothe is a 62 y.o. female with a medical history significant for COPD (2L home O2), QUIROZ (complicated by cirrhosis and small esophageal varices), GERD, hypothyroidism, HUEY (not on CPAP), unspecified coagulopathy (splenic vein thrombosis with infarct, SMV thrombosis, previously on eliquis and lovenox but stopped due to thromyocytopenia and GIB), CKD (baseline creat 1.0), anxiety/depression who presented to the [facility] ED for low back, found to be hypotensive to 60-70 systolic requiring levophed, likely hypovolemia in the setting of acute illness with vomiting and poor PO intake, superimposed on chronic hypotension from cirrhosis. She was admitted to the MICU where she received volume resuscitation with crystalloid. She responded well to this and was weaned off of levophed by 12/15. She was mentating well throughout her MICU stay and transferred to the medicine team. While on the medicine team, she remained normotensive. Her MUSA improved and her STILL TENDER pain medicines were added back on. Her STILL TENDER spironolactone and lasix were added back on at a half dose and increased to full dose. She was evaluated by PT on 12/17/2022 and discharged with no need for follow up PT services. She had some wheezing on 12/17 but this resolved by 12/18 so don't she was having a COPD exacerbation. CXR was unchanged. Her back pain remained under control and she was cleared for discharge back home on 12/18/2022. She will continue on 60 lovenox and follow up with THP clinic. She reported right lateral foot pain but foot XR was negative for an acute fracture. She can ice and elevate. Relevant Imaging/Procedures Performed: Right foot XR: There is moderate to severe osteoarthrosis involving the Lisfranc joints and navicular-cuneiform joints. Also, with suggestion of a chronic appearing and minimal in size osseous fragment along the dorsal aspect of the navicular- cuneiform articulation, likely sequela from remote injury. There is severe osteoarthrosis in the first MTP joint and milder degenerative changes throughout the remainder the foot and toes. Plantar and posterior calcaneal enthesopathic spur formation is noted. There is mild diffuse soft tissue swelling throughout the foot. An os peroneum and type I accessory navicular bone are noted. No evidence for dislocation or acute fracture in a setting of osteopenia. If there isconcern for a radiographically occult fracture and in particular if the patient has persistent painrecommend repeat radiographs in about 10 days to further evaluate for this possibility. Results Pending at Discharge: Test results still pending from this admission Procedure Component Value Units Date/Time Bacterial Culture, Blood [[id number]] Collected: 12/14/22805 Lab Status: In process Specimen: Blood, Venous Updated: 12/14/22825 Bacterial Culture, Blood [[id number]] Collected: 12/14/22805 Lab Status: In process Specimen: Blood, Venous Updated: 12/14/22825 Upcoming Appointments Dec 30, 2022 10:45 TRANSITION OF CARE FOLLOW UP with Emigdio Veronica MD [facility] [place] ([facility] [address] [facility] [address] Jan 21, 2023 14:30 Office Visit Medium with Emigdio Veronica MD [facility] [place] [facility] [address] [facility] [place] [address] Follow-up appointments and procedures Amb Consult/Follow Up Hematology Will be discharged on 60 mg of enoxaparin (kidney function slightly elevated so this will be roughly intermediate dose and she has a history of bleeding on lovenox and apixaban) Reason for Request: Follow up for progressive PVT, already follows in [facility], can see an IVA about possibly increasing to full dose Authorizing Provider: Amilcar Ramesh MD I personally spent > 30 minutes reviewing the chart, evaluating and examining the patient, counseling and preparing the patient for discharge, and coordinating follow up. OSIRIS SHAW MD 12/18/2022 11:35 Cosigned by Toya Reyez MD at 12/18/2022 13:20 EST Associated attestation - Toya Reyez MD - 12/18/2022 1320 EST Attending Attestation I interviewed and examined the patient. I have personally reviewed interval events, laboratory data, and imaging. I discussed the case with the resident team and agree with the plan of care as documented in the resident discharge summary above. The patient is medically stable for discharge today. Ireviewed the discharge instructions and follow up plan with the patient. In brief, this is a 62 year old female who presented with acute on set right sided back pain in thesetting of a few days of cough and rhinorrhea and more long standing fatigue and intermittent abdominal pain. Suspect her course was due to a viral respiratory infection (not able to be tested for onour testing) superimposed on progression of her prior portal vein thrombosis into her superior mesenteric vein. She was started on lovenox, and advanced to 60mg daily (with plan for further outpatient advancement by hematology) and otherwise treated symptomatically with improvement in her symptoms. She noted right foot pain in the setting of twisting her foot a few days prior to admission, of which an xray was completed and showed no fracture, though osteopenia, if she were to continue to have pain in this area would repeat imaging in 7-10 days. I personally spent >30 minutes reviewing the chart, evaluating and examining the patient, and counseling and preparing the patient for discharge. Toya Reyez MD 12/18/2022 13:16 documented in this encounter Discharge Instructions * Discharge Instr - AVS First Page* Osiris Shaw MD - 12/18/2022 11:34 EST Follow up: Please see your recommended follow-up below. Labs / Imaging: PLEASE get lab work on Tuesday, 12/20 - BEFORE your appointment with your PCP You have upcoming lab work on 12/20/2022. You can speak to your primary care physician aboutthese results. Major Medication Changes: Please review the complete list of your medications below. Some of the most important new medication changes you will have going forward include: START taking: Lovenox 60 mg injection DAILY to reduce your clot risk Resume taking lasix 60 mg (3 tablets a day) because you have some lower extremity swelling (ankles)and have noticed some weight gain Please speak to your primary care physician about any questions you have regarding your medications. Thank you for choosing [facility] for your care! * Attachments The following attachments cannot be sent through Care Everywhere. * TIPS: Transjugular Intrahepatic Portosystemic Shunt: General Info (Maltese) documented in this encounter Medications at Time [...] EYE 5 mL 3 10/12/2022 3 lactulose 10 gram/15 mL (15 mL) solution Take 10-20 g by mouth daily as needed (Constipation. Target goal of two bowel movements daily). 900 mL 12/02/2022 3 levothyroxine (SYNTHROID) 25 mcg tablet Take [...] HOURS NEEDED FOR NAUSEA 30 Tablet 1 11/17/2022 3 oxyCODONE (ROXICODONE) 5 mg immediate release tablet Take 1 Tablet by mouth 3 times daily as needed for Pain. Daily Max: 15 mg 10 Tablet 12/18/2022 3 pantoprazole (PROTONIX) 40 mg tablet Take 1 Tablet by mouth 2 times daily. 180 Tablet 3 06/21/2022 3 polyethylene glycol (GOLYTELY;NULYTEL Y) 236-22.74-6.74 -5.86 gram suspension Instructions mailed once procedure scheduled. 4000 mL 12/13/2022 3 sertraline (ZOLOFT) 50 mg tablet Take 1 Tablet by mouth daily. 90 Tablet 3 10/04/2022 3 spironolactone (ALDACTONE) 100 mg tablet TAKE 1 TABLET BY MOUTH EVERY DAY 90 Tablet 1 11/19/2022 3 sucralfate (CARAFATE) 1 gram tablet TAKE 1 TABLET BY MOUTH FOUR TIMES A DAY 120 Tablet 3 05/10/2022 4 traZODone (DESYREL) 100 mg tablet Take 2 Tablets by mouth at bedtime. 180 Tablet 1 08/26/2022 3 documented as of this encounter Ordered Prescriptions Prescription Sig Dispense Quantity Refills Last Filled Start Date End Date oxyCODONE (ROXICODONE) 5 mg immediate release tablet Take 1 Tablet by mouth 3 times daily as needed for Pain. Daily Max: 15 mg 10 Tablet 12/18/2022 02/07/2023 enoxaparin (LOVENOX) 60 mg/0.6 mL injection Inject 60 mg into the skin daily. 50 mL 3 12/19/2022 02/17/2023 documented in this encounter Discharge Disposition Disposition Code Departure Means Destination Home or Self Skilled Nursing documented in this encounter Progress Notes * Barb Camarillo, PT - 12/17/2022 5673 EST [facility] Rehabilitation Therapy Acute Therapies [facility] Physical Therapy Initial Evaluation/Discontinue Note Date of Service: 12/17/2022 Reason for Referral: Evaluate and treat Precautions: Activity as tolerated and Elevate HOB SUBJECTIVE: Pt reports I'm tired and This foot is hurting, indicating the RLE. Also reports twisting her ankle a day ago. Pain: Location: Low back Intensity: 8/10 (at present), 5/10 (at best), 10/10 (at worst). Pt reports that LBP is chronic Frequency: Constant Quality: Dull, ache Aggravating factors: Movement Alleviating factors: Rest, medications Location: RLE at ankle joint Intensity:Numeric rating not provided Frequency: intermittent Quality: ache and dull Aggravating factors: mobility Alleviating factors: rest and medication OBJECTIVE: Reason for hospitalization: Low back pain and sepsis PatientProfile: Patient is a 62 y.o. female admitted on 12/14/2022 secondary to Sepsis (HCC) [A41.9] Cirrhosis (HCC-CMS) ([facility]) [K74.60] The patient lives at [address] [place] [phone] Home environment Lives: with roommates who she reports are able to assist her at home. Also reports that her son is able to assist part-time. Caregiver Support: 24-hour assist Equipment Available: None Home Environment: house Home Layout: One story. Entry stairs 2 with rails Laundry is located in the basement but pt reports that friends will do her laundry for now. Prior Level of Function: Independent Services prior to admission: None Work/Leisure: Retired and drove prior. Medical/Surgical History: CURRENT: The patient has Pancytopenia (HCC); Mild persistent asthma without complication; Drug-seeking behavior; Splenic vein thrombosis; Chronic pain syndrome; Other cirrhosis of liver (HCC); Obesity, Class II, BMI 35-39.9; Hypothyroidism; Abdominal wall hernia; Allergic rhinitis; Partial small bowel obstruction (HCC-CMS) (HCC); HUEY (obstructive sleep apnea); Dyspnea; Nephrolithiasis; Left ureteral stone; COPD (chronic obstructive pulmonary disease) (HCC-CMS) (HCC); Portal vein thrombosis; Frequent falls; Fluid overload; Moderate protein-calorie malnutrition (HCC-CMS) (HCC); Hypersplenism; 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HCC-CMS) (HCC); Chronic respiratory failure with hypoxia (HCC-CMS) (HCC);Peptic ulcer disease with hemorrhage; Thrombocytopenia (HCC); Hypotension; Acute pulmonary edema (HCC-CMS) (HCC); Cirrhosis (HCC-CMS) (HCC); Hypercoagulable state (HCC-CMS) (HCC); History of bleedingulcers; Superior mesenteric vein thrombosis (HCC-CMS) (HCC); and Right foot pain on their problem list. PAST: The patient has a past medical history of Anemia, Anxiety, Asthma (12/10/2020 currently not taking - mild persistent - see dr. Veronica 11/20/2021; 01/11/22- uses rescue inhaler twice daily), Blood clotting disorder (HCC-CMS) (HCC) (blood clot in place- spleenic vein; per pt), Bursitis (right shoulder), C. difficile colitis (Hospitalized after kidney stone removal), Chronic kidney disease, Cirrhosis of liver (HCC-CMS) (HCC), Community acquired pneumonia (january 2021), COPD exacerbation (HCC-CMS) (HCC), Depression, Drug-seeking behavior (Per Dr Amelia Tijerina and notes from [facility] patient misconstrued information to several providers about multiple concurrent opiate prescriptions), Environmental allergies, Exercise involving walking (takes a walk daily for 20 minutes; 01/11/22- weather dependant; Some SOB; cannot do stairs without stopping due to breathing and leg pain- ), GERD (gastroesophageal reflux disease) (12/10/2020 does not wake pt at night; 01/11/22- Med controlled- ), Hemorrhagic disorder (HCC-CMS) (HCC), History of general anesthesia, History of kidney stones, Hypersplenism syndrome, Hypothyroidism, Joint replaced (12/10/2020 nya knees), Mental disorder, QUIROZ (nonalcoholic steatohepatitis) (with cirrhosis), Pancytopenia (HCC), Poor dentition (multiple missing teeth-), Rheumatoid arthritis, Sleep apnea (uses simple O2 at night - 2. didn't require CPAP; 01/11/22- 2litres at night, can lay flat), Swelling (Takes diuretic, on and off throughout day; BLE; 01/11/22-), Thrombocytopenia (HCC) (12/10/2020 - see 11/20/2020 Dr. Veronica H&P, (managed by Starr Paige MD)), and Thyroid disease. SURGICAL: The patient has a past surgical history that includes hernia repair; Appendectomy; Tonsillectomy; Cholecystectomy; Hysterectomy; knee surgery (Bilateral); joint replacement (Bilateral); Wrist surgery (Right); Gastric fundoplication (1989); bone marrow biopsy; Cystoscopy (12/03/2020); other surgical history; and Upper gastrointestinal endoscopy. Medical history reviewed. Medications: Medications reviewed Arousal, Attention, and Cognition: Orientation: Alert Oriented to person, place, and time Cardiopulmonary: Vital Signs: VS monitored and were stable throughout session. Pre session: BP: 111/58, HR: 78, O2 Sat: 96% on room air. Post session: BP: 125/58, HR: 85, O2 Sat: 97% on room air. Patient vital signs stable and patient not symptomatic during examination/treatment. Other: N/A Integumentary/Anthropometric Characteristics: Palpation/Observation: N/E Posture: No problem noted Range of Motion and Joint Integrity: Within normal limits Muscle Performance: Within normal limits Sensation, Reflexes, and Nerve Integrity: Intact to light touch dermatome testing for BUE/LE Neuromotor Function/Development: Pt able to move all limbs in isolation, no deficits in coordination noted with functional mobility. Balance, Mobility, and Gait: Balance: No loss of balance observed throughout physical therapy session. Mobility: During all activities performed this patient was provided cues and education. These were provided to give movement techniques to: optimize ability for patient to participate in and perform task, decrease post procedure discomfort, optimize patient safety and utilize pacing recommendations Rolling: N/E Supine to Sit: N/E - pt met sitting at bedside chair upon arrival Sit to Supine: N/E - pt left sitting at bedside chair post session Sit to Stand: independent with no device Stand to Sit: independent with no device Transfers: independent with no device Gait: Gait: Patient ambulated 220 feet with no device and independent level of assist. Gait quality: reciprocal gait pattern: and slow gait speed. No LOB noted but pt mildly SOB post ambulation. Education provided for proper breathing and rest. Stairs not assessed at this time but pt demonstrated the ability to negotiate x2 steps at home as evidenced by pt's ability to safely lift BLEs from floor during standing taps unto trash can. Self-Care, Home Management, Work, and Leisure: N/E at this time Outcomes: Please refer to individual sections for any outcome measures that were performed Informed Consent: The patient consented to the physical therapy evaluation. The patient agrees to and understands the physical therapy treatment plan and goals. Interventions Completed Today: Physical Therapy today at: 1400 - 1415 Total treatment time: 15 minutes. Timed code treatment minutes: 0 Intervention included: Therapeutic exercises: Patient was provided with verbal and demonstrated instruction and then performed exercise program as noted below: sitting, Bilateral lower extremity 10 repetitions, active: ankle pumps standing, Bilateral lower extremity 10 repetitions, active: hip flexion, knee flexion and standing taps unto trash can Therapeutic Activity: During all functional activities noted above this patient was provided with manual assist and education via combination of verbal and demonstration. These were provided to give movement techniques to: optimize ability for patient to participate in and perform task, decrease post procedure discomfort, optimize patient safety and utilize pacing recommendations Patient instructed in RPE scale (0-10) and appropriate use to assess current tolerance to activity as well as how to appropriately pace activity now and in the future. Patient verbalized understanding. Patient/Family Education: Topic: Activity pacing/Energy conservation Assistive device/technique Balance Breathing exercises Discharge planning Exercise Gait Home program Role of therapy Safety Transfers Learner: patient Method: verbal and demonstration Barriers to Learning: none noted Outcome: verbalized understanding and returned demonstration Team Communication: Nurse Face to face communication Prior to therapy session and After therapy session Performance during Physical Therapy and recommendations for mobility with nursing, Discharge recommendations and Patient status ASSESSMENT: Physical Therapy Diagnosis: This patient presents with a Physical Therapy diagnosis of :Pain impacted by impairments of: activity tolerance and range of motion in low back. Physical Therapy Prognosis: Physical therapy is medically necessary to: address these body structure/function impairments, activity limitations, and participation restrictions, establish and progress mobility/exercise and provide recommendations for staff and safe discharge planning, facilitate return to prior level of function, improve safety and independence, provide education in a home exercise program to address impairments in body function and structures and promote increased activity and participation and provide family/caregiver education to assist the patient Current status compared to baseline level of function: expected to be at or near prior level of function. Anticipated rate of progress: steady Progress may be affected by the following: strengths: motivation, participation level, previous level of function and safety awareness barriers: pain Discharge recommendations: home with family assist. Pt is a very pleasant and motivated 62 year old female who was admitted for sepsis and low back pain. PT eval completed today and patient tolerated the initiation of therapeutic exercise and mobilitywell today with no complaints post. Pt met sitting at bedside chair upon arrival and agreeable to PT. Prior to admission, pt reported being independent with all ADLs with no use of an AD for gait mobility. Upon evaluation, pt presented with mild functional mobility deficits affecting strength and balance but otherwise appearing at her functional baseline. Education and cueing provided for proper exercise sequence, safety, hand placement during transfers and fall prevention during gait mobility.Pt able to follow all commands well post cueing and demonstrated good safety awareness. No LOB/SOB noted during gait mobility and VSS throughout therapy session. Post session, pt returned to chair and was left resting comfortably with call light in reach and all needs in place. RN notified. Pt presents at functional baseline and demonstrated the mobility level adequate for return to home with family assistance. She is anticipated to make steady gains with ongoing performance of exercises and mobility progression which she was educated about. No follow-up PT is recommended at this time and pt has adequate support from friends and son at home. Based on performance with PT today, she is expected to be functionally ready for discharge once medically cleared. Pt is interested in having a SPC for safety with outdoor gait mobility. RN to ambulate pt inside/outside room when able. DiscontinuingPT orders. Short-Term Goals: N/A Long-Term Goals: 1 day - MET ??? The patient will be able to perform bed mobility with independent demonstrating appropriate sequencing/motor planning. ??? The patient will be able to perform transfers with independent while demonstrating an effectivestrategy for recovery of loss of balance. ??? The patient will be able to ambulate with independent with no loss of balance on level [id number] - 200 feet with/without assistive device as needed. ??? The patient will be able to perform stairs with modified independent with home set up for rails. ??? The patient and/or caregiver will be aware of the PT recommendations provided and verbalize and/or demonstrate understanding of the recommendations. PLAN: Discontinue acute care PT. Continue mobility with nursing assistance while hospitalized. Recommended Discharge Destination: Home with friends Recommended Discharge Services: No physical therapy follow-up services at this time Recommended Equipment Needs: Cane - pt is interested in getting a cane Other recommendations: No other consults recommended at this time Pager: [phone] Barb Camarillo PT 12/17/2022 15:36 * Barb Camarillo PT - 12/17/2022 3337 EST [facility] Therapy Acute Therapy [facility] Physical Therapy Contact Note Date of Service: 12/17/2022 PT consult received, chart reviewed. PT eval completed and full note to follow. Pt met siting at bedside chair upon arrival, A&Ox3, very pleasant and able to follow all commands and exercises well with min-mod pain complaints in low back. VS monitored and stable throughout. Pt presents at functional baseline and mobility today supports plan for discharge to home with assistance from friends/roommates once medically cleared. No AD or follow-up services required at this time. Barb Camarillo, PT 12/17/2022 14:17 * Karla Srinivasan, RT - 12/17/2022 1110 EST Respiratory Consult/Progress Note Indications for Respiratory therapy: home regimen Data Vitals: Heart Rate: 75 BPM, Resp: 20, SpO2: 93 % FIO2/O2 Device: O2 Flow Rate (L/min): 0 l/min, , O2 Device: None, RT Orders: albuterol inhaler PRN, spiriva qd Protocol Scoring: Bronchodilator/Inhalation Therapy Frequency Bronchodilator - Clinical Indications: Home regimen Breath Sounds: Any abnormal BS decreased Response: No change / no treatment Pulse: <100 Resp Rate: 18-25 SOB: With exertion Total Score: 3 Comment:: PRN indicated Frequency Based On Total Score: 0-4 = PRN 5-7 = QID 8-10 = Q4H 11-12 = Q2H Airway Clearance Therapy Frequency Airway Clearance - Clinical Indications: Productive cough Breath Sounds: Clear / diminished Sputum: Small (tsp) / None Consistency: None Cough Effort: Strong/ non-productive Color: None Total Score: 0 Comment: PRN Frequency Based On Total Score: 0-3 = PRN 4-6 = QID and PRN 7-9 = Q4H and PRN 10-11 = Q2H and PRN Hyperinflation Therapy Frequency Hyperinflation - Clinical Indications: No clinical indications Breath Sounds: Clear Surgery: No X-Ray / Atelectasis: No O2 Requirements: O2 at baseline Mobility Status: Mobile / at baseline Total: 0 Comment: 2l at noc at home Frequency Based On Total Score: 0-3 = PRN 4-6 = QID and PRN 7-9 = Q4H and PRN 10-12 = Q2H and PRN Action/Events Respiratory events; Patient lungs clear/diminished. Before and after neb treatment, per physician will change to home regimen of albuterol inhaler PRN RT JAXON 12/17/22 * Cris Harrington - 12/17/2022 09 EST Internal Medicine Progress Note Service Date: 12/17/2022 Admit Date: 12/14/2022 1:50 Hospital Day: 3 Reason for Admission: 62 y.o. female admitted with a chief complaint of back pain and now with a principal diagnosis of worsening portal vein thrombosis. 24 Hour Events: - NAA Pacheco is doing okay this morning. She continues to have significant back pain that is slightly increased from baseline. She has been able to walk the halls without significant issues. She did however roll her ankle while walking yesterday and has significant pain in her right foot now. She is able to bear weight on it, but it is uncomfortable to walk. She also has felt intermittently lightheaded and dizzy while in the hospital. Her breathing is okay, but she still does have some shortness of breath. She is asking for her trazodone to be restarted. She also states her Lasix is actually 60 mg and not 40 mg. Objective Vital Signs Temp: [35.7 ??C (96.3 ??F)-36.5 ??C (97.7 ??F)] Heart Rate: [67 BPM-73 BPM] BP: (99-125)/(52-100) Resp: [13-18] SpO2: [89 %-98 %] Intake/Output Summary (Last 24 hours) at 12/17/2022926 Last data filed at 12/16/2022 1709 Gross per 24 hour Intake 490 ml Output 150 ml Net 340 ml Physical Exam 12/17/2022 9:27 General appearance: Much more awake and alert compared to yesterday, in no acute distress, speakingto team in full sentences HEENT: Normocephalic, atraumatic Skin: Skin color, tempature, turgor normal. No rashes or lesions noted on exposed skin Lungs:??Lungs with diffuse end expiratory wheezes throughout lung godwin Heart:??Regular rate and rhythm, normal S1/S2, no murmurs, rubs, or gallops Abdomen:??Soft, non-distended, tender to light palpation in upper abdomen bilaterally Neurologic: Grossly normal, moving all extremities, cranial nerves intact Extremities:??Warm, atraumatic, edema present bilaterally, legs very tender to palpation and stiff feeling MSK: Exquisitely tender to palpation at base of 5th metatarsal as well as throughout lateral side of right foot, no pain on medial aspect of foot Psych: affect appropriate Is PICC or central line present? No, PICC/Central line not present. Labs Recent Labs 12/15/2214 12/16/22 033 WBC 3.14* 3.31* RBC 3.71* 3.74* HGB 10.9* 10.8* HCT 33.8* 33.6* PLT 67* 71* MCV 91 90 MCH 29.4 28.9 MCHC 32.2 32.1 Recent Labs 12/15/2214 12/16/22 033 NA 137 136 K 4.4 4.4 CL 104 102 CO2 27 25 BUN 13 14 CREATININE 1.08* 1.00 CALCIUM 8.2* 8.4* MG 1.8 1.8 LABALBU 3.1* 3.0* Recent Labs 12/15/22 0714 12/16/22 0336 TBIL 0.6 0.6 ALKPHOS 72 94 AST 21 21 ALT [address] ABDOMEN PELVIS W CONTRAST Result Date: 12/14/2022 1. No acute abnormality in the abdomen or pelvis. 2. Extensive chronic portal vein thrombosis with new involvement of the superior mesenteric vein compared to August 2022. 3. Cirrhotic configurationof the liver. 4. Splenomegaly with chronic splenic infarct, status post coil embolization. 5. Priorhysterectomy and cholecystectomy. 6. Unchanged small left adrenal nodule and right external iliac lymph node, both shown to be hypermetabolic on recent comparison PET CT. Please see that report for management recommendations. I have personally reviewed the images and the above interpretation and agree with the findings. CT ANGIO CHEST PE PROTOCOL Result Date: 12/14/2022 1. No evidence of pulmonary embolism. 2. Suspect mild hydrostatic edema on expiratory phase imaging. I have personally reviewed the images and the above interpretation and agree with the findings. XR CHEST 2 VIEWS Result Date: 12/14/2022 1. Questionable hazy opacities throughout both lungs with slight thickening of the pulmonary interstitium, possibly representing interstitial disease or very mild edema. This is similar in appearancecompared to May 2022. I have personally reviewed the images and the above interpretation and agreewith the findings. PET CT EYE TO THIGH Result Date: 12/07/2022 1. Previously noted nodule in the left lung base has resolved consistent with a benign process. 2. FDG avid mildly enlarged right external iliac lymph node which is slightly larger compared to 2015 (SUV max 14.13). This is nonspecific but the intense uptake is concerning for underlying malignancy. If biopsy is not pursued, follow-up MRI pelvis is recommended in 3 months. 3. Scattered focal metabolic activity particularly in near proximity to aforementioned abnormal lymph node is indeterminate. Further evaluation with colonoscopy is recommended. 4. Left adrenal 1.4 cm nodule indeterminate by CT criteria. It can be evaluated with dedicated MR abdomen and pelvis. 5. Cirrhosis, portal hypertension, splenomegaly with evolving infarct and chronic portal vein thrombosis. 6. Prior hysterectomy and cholecystectomy. I have personally reviewed the images and the above interpretation and agree withthe findings. US LIVER/ABDOMEN VISCERAL DOPPLER Result Date: 12/15/2022 1. Redemonstration of thrombus in the main portal vein, right portal vein, left portal vein, and superior mesenteric vein which are better assessed on recent comparison CT. Known thrombus in the splenic vein is not well assessed on this study due to shadowing from overlying bowel gas. 2. Cirrhotic configuration of the liver with no focal hepatic lesion identified. 3. Wedge-shaped region of decreased echogenicity spleen, likely sequela of splenic infarct as seen on comparison CT. I have personally reviewed the images and the above interpretation and agree with the findings. Medications Scheduled B-Complex with Vitamin C, 1 Tablet, DAILY enoxaparin, 60 mg, DAILY furosemide, 20 mg, DAILY gabapentin, 300 mg, TID lactulose, 30 mL, BID levothyroxine, 25 mcg, DAILY BEFORE BREAKFAST lidocaine 5 %, 1 Patch, DAILY pantoprazole, 40 mg, DAILY Or pantoprazole, 40 mg, DAILY sertraline, 50 mg, DAILY spironolactone, 50 mg, DAILY tiotropium bromide, 5 mcg, DAILY Continuous PRN calcium carbonate, 1 Tablet, QID PRN ipratropium-albuteroL, 3 mL, Q4H PRN lidocaine, 2 mg, PRN nystatin, , BID PRN ondansetron (PF), 4 mg, Q4H PRN oxyCODONE, 5 mg, Q4H PRN ramelteon, 8 mg, AT BEDTIME PRN Assessment Tara Boothe??is a 62 y.o.??female with a medical history significant for COPD (2L home O2), QUIROZ (complicated by cirrhosis??and small esophageal varices), GERD, hypothyroidism, HUEY (not on CPAP),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 She appears to be close to baselinewith her back pain slightly increased compared to usual. She also has a new pain in her right foot after rolling her ankle yesterday that we will evaluate with X- ray as dictated by the [place] [employer] Rules. We will increase her diuretics to full dose today. She is wheezy today and chest x-ray showed no overt signs of pneumonia. If wheezing does not improve with albuterol treatment, will treat with steroids and azithromycin. Plan #Acquired protein C and S deficiency 2/2 liver disease #Chronic portal vein thrombosis with new superior mesenteric vein involvement Was previously on eliquis and therapeutic lovenox, however was discontinued due to thrombocytopeniaand GI bleed in 2020. - Hematology consulted, appreciate recs - Continue Lovenox 60 mg daily and discharge her on this dose if stable - Will follow-up outpatient with Heme #Chronic back pain - Continue STILL TENDER gabapentin 300 mg TID - Continue STILL TENDER oxycodone 5 mg q4h PRN - Lidocaine patch PRN - PT order placed ?? #Cirrhosis secondary to QUIROZ, hx of decompensated cirrhosis with esophageal varices - Increase spironolactone to STILL TENDER dose 100 mg - Increase lasix to 40 mg (STILL TENDER dose 60 mg, different than in chart) - Continue STILL TENDER lactulose 30 mL BID - Renal diet, encourage PO intake ? #Mild COPD Exacerbation, productive cough and new wheezes present on exam today - on 2L of home O2 overnight but not while awake - Supplemental O2 as needed, goal SpO2 >88%, currently stable on RA during day - Continue STILL TENDER inhaler- incruse ellipta - Stat Chest x-ray this AM did not show a clear PNA or hyperinflation - Albuterol q4h PRN, changed from Duo nebs per RT - Wheezy this morning, so contacted RT to come by and give a duoneb treatment - If wheezing does not improve with duonebs, consider starting short course of steroids and azithromycin - CPAP at night for HUEY, patient has been refusing due to discomfort - Patient just had a sleep study and is awaiting CPAP machine to be delivered to her home Right foot pain Patient twisted her ankle while walking yesterday and meets criteria for [place] ankle rules. - Right foot x-ray ordered this morning, awaiting read ?? #Hypotension, resolved Most likely hypovolemia secondary to vomiting and poor PO intake with underlying hypotension secondary to cirrhosis. Normal lactate. - Goal MAP>65 - CTM - Restart diuretics as listed above ?? #Encephalopathy, appears to be resolved and back to basline - Restart STILL TENDER trazodone 200 mg at bedtime - Continue STILL TENDER gabapentin ?? #MUSA on CKD most likely pre renal in the setting of hypovolemia, resolved - Creatinine back to baseline - S/p fluid resuscitation in MICU, 2.5 L LR - Daily CMP, CTM as add STILL TENDER meds back on ?? #Recent acute illness with vomiting - Zofran 4mg IV Q4H PRN ?? #Hypothyroidism?? - STILL TENDER levothyroxine 25mcg - F/u TSH ?? #GERD - STILL TENDER pantoprazole 40 mg PO BID - Continue TUMS PRN ?? #Chronic leukopenia #Chronic normocytic anemia #Chronic thrombocytopenia - Daily CBC ?? #Depression/ Anxiety -Sertraline 50mg daily?? Insomnia - Restart STILL TENDER trazodone 200 mg VTE Prophylaxis Lovenox 60 mg daily per hematology Code: Full Discharge Plan Pending PT celial, may need SIRISHA Consults None Radha Fischer, MS4 Pager #[phone] I saw the patient with the med student and agree with the above plan and assessment. Cris Harrington MD Internal Medicine PGY-1 Pager #[phone] 01/27/23 12:45 Cosigned by Toya Reyez MD at 12/17/2022 13:32 EST Associated attestation - Toya Reyez MD - 12/17/2022 1332 EST Attending Attestation I interviewed and examined the patient. I have personally reviewed interval events, laboratory data, and imaging. I discussed the case with the inpatient resident team. I agree with findings and planof care as documented by the resident (or have edited in blue). The resident was present with the medical student for the history, exam and medical decision making. I have personally performed my own physical exam and medical decision making. I have verified and agree with the combined medical student/resident's documentation. Continues to feel improved, less cough, less sputum, breathing nearing towards baseline. Right sided back pain resolved, now primarily with baseline lower back pain and right foot pain which she notes started after twisting her foot a few days prior to admission. Notes fear with stepping on the foot. She has mild end expiratory wheezing on examination today. With mild wheeze on exam today that hasn't been present on prior examinations, and resolving sputum, meets mild COPD exacerbation, will assess response to nebulizer treatments, and if still persistent wheeze will start prednisone and azithromycin for COPD exacerbation. CXR repeat today on my read with similar left sided mild opacity to prior CXR and overall less well penetrated to prior, imaging with clinical picture not consistent with a pneumonia at this time. Will continue to increase furosemide/spironolactone to home doses. Right foot pain seems most consistent with sprain, but with 5th metatarsal tenderness, will obtain xray of the right foot and consult orthopedics if fracture is present. Will ask PT to mobilize and hopeful for potential discharge tomorrow. Will need to decrease oxycodone dosing towards home dosing for discharge. Rest of plan and assessment as per below. Toya Reyez MD Hospitalist Physician 12/17/22 at 13:29 * Jayden Garcia, RT - 12/16/2022 2346 EST Respiratory Nocturnal BIPAP/CPAP Heart Rate: 73 BPM, Resp: 16, SpO2: 98 %, Breath Sounds Bilateral: Expiratory wheezes Patient was not placed on Device Type: Standby (pt refused) Pt not tolerating well. Notified MD Magallno Comments: RT CARLOS A 12/16/22 * Azam Pérez, RN - 12/16/2022 1508 EST FOUR EYES SKIN ASSESSMENT Four Eyes skin assessment was performed on admission to the unit by Azam Pérez RN and Mari Jones RN. Skin intact Redness noted in abdominal folds Device related pressure injury present? NA 12/16/2022 15:08 * Heike Rutledge RN - 12/16/2022 1340 EST Initial Case Management/Social Work Assessment and Discharge Plan/Readmission Risk Assessment REASON FOR ADMISSION: Sepsis (HCC) Patient understands reason for admission: Yes PATIENT INFO VERIFIED: PCP, Contact Info, Address Type of housing (single family, condo, apartment, half-way, single room occupancy, [facility] funded hotel room, group custodial) - [facility] Who does the patient live with? roomates Does the patient have access to their own bedroom/bathroom/kitchen - or is it shared with others? Shared with roommates LIVING ARRANGEMENTS AND ACCESSIBILITY ISSUES: Living Arrangements: Friends, Private residence Levels: 1 Stairs to enter: 2 Handicap access: Railings into home, Grab bars Bathroom located on bedroom level?: Yes What in home social supports are available to the patient? Family member(s), Friends / neighbors Is 24/ care available? No ADVANCED DIRECTIVES, POA &/or COLST IN PLACE: Healthcare Directive: No, patient does not have advance directive for healthcare treatment Information Provided on Healthcare Directives: No Information on Healthcare Directives Requested: No DIRECTIVES FOR FINANCES: Directive For Finances: No TRANSPORTATION: Transportation: Family Expected Discharge on IV Antibiotics: No Final Discharge Destination: home Patient expects to be discharged to: home CULTURAL, CONGREGATION and/or LANGUAGE factors affecting health care/discharge planning: Spiritual/Cultural Requests: None Language/Literacy Needs Do you need us to provide any communication aids or devices?: No Insurance Information: Medical Insurance: Yes Type of insurance: Medicare, Medicaid Medicare type: A, B Medicaid Type: Community Referred to patient financial services: No Nutrition: DISCHARGE RISK ASSESSMENT: Polypharmacy, > 7 medications;Diagnosis of COPD;Diagnosis of Diabetes Total # selected above: Score of 2 - 4: This patient is at MODERATE RISK for re-hospitalization Tentative plan to address the risk of re-hospitalization for those at HIGH MODERATE RISK: Bring risk factors to attention of team to be addressed;Early inpatient rehab therapy or other consultation(s) RAPT TOOL: Age: 50-65 Gender: Female Ambulation distance: 1-2 blocks Gait device: Single point device Community Services: Home health, [facility], [facility]-none of one time a week Will you live with someone who will care for you?: No RAPT Tool Score: 6 Patient expects to be discharged to: home SBIRT: SASQ (Single Alcohol Screening Question) How many times in the past year have you had 4 or more drinks in a single day?: Never How many times in the past year have you used an illegal drug or used a prescription medication fornon-medical reasons?: Never Intervention in place/initiated?: No, not indicated FUNCTIONAL STATUS: Activities patient requires assistance: None Assistive Devices: None COMMUNITY RESOURCES/SUPPORTS: Primary Care Provider: Emigdio Veronica PCP Verified: Specialists: Cardiology (Hematology) Type of Home Health Services: None DME Provider: n/a Pharmacy: [facility]/pharmacy #[id number] - [place], [place] - [address] [place] [address] [place] [address] Home Health: Other: [facility] TRANSITION PLAN: She lives with her roommates Celestino and Federica in a one story, private home in [facility] (2 steps to enter plus railing). - Qualifies for SSDI. 3 Squares valorie intact. - STILL TENDER she reports she was capable of all ADLs & IADLs. - DME includes a shower chair and grab bars. She is interested in getting a cane. - Pt's roommates have a car and assist with transportation. Pt also drives and can borrow the car when needed. - Pt is not involved with any community services or agencies currently. No home health services in place. - On 2 L nocturnal home O2. She reports she also uses O2 during that day periodically. O2 provider is [facility]. - Pt's son González works in [place] and is available to assist as needed. However she is asking thatwe not bother him as he is working to purchase a house and the closing is tomorrow. - Pt has no concerns with discharging home. CM to continue to follow and support. HEIKE RUTLEDGE RN,BSN CM 12/16/2022 13:40 * Osiris Shaw MD - 12/16/2022 1253 EST Internal Medicine Progress Note Service Date: 12/16/2022 Admit Date: 12/14/2022 1:50 Hospital Day: 2 Reason for Admission: 62 y.o. female admitted with a chief complaint of back pain and now with a principal diagnosis of worsening portal vein thrombosis. 24 Hour Events: - Admitted to medicine team Subjective Phyliss is feeling better compared to admission. She continues to endorse right sided back pain, but it is feeling much improved since admission. She is now on room air and feels that her breathing is okay. She did not wear CPAP overnight as she couldn't breathe with it on. She has not had any nausea or vomiting and has not noted any signs of bleeding. Objective Vital Signs Temp: [36.3 ??C (97.4 ??F)-37.4 ??C (99.3 ??F)] Heart Rate: [69 BPM-87 BPM] BP: (96-120)/(53-100) Resp: [12-22] SpO2: [89 %-96 %] Intake/Output Summary (Last 24 hours) at 12/16/2022 1253 Last data filed at 12/16/2022 1110 Gross per 24 hour Intake 1770 ml Output 1550 ml Net 220 ml Physical Exam 12/16/2022 12:53 General appearance: Alert but intermittently closing eyes, cooperative, in no acute distress HEENT: Normocephalic, atraumatic Skin: Skin color, tempature, turgor normal. No rashes or lesions noted on exposed skin Lungs:??Lungs clear to auscultation in anterior lung godwin, no wheezes appreciated Heart:??Regular rate and rhythm, normal S1/S2, no murmurs, rubs, or gallops Abdomen:??Soft, non-tender, non-distended; bowel sounds normal Neurologic: Grossly normal, moving all extremities, cranial nerves intact Extremities:??Warm, atraumatic, no cyanosis or edema Psych: affect appropriate Is PICC or central line present? No, PICC/Central line not present. Labs Recent Labs 12/14/222 12/15/22 0714 12/16/22 0336 WBC 3.93* 3.14* 3.31* RBC 3.76* 3.71* 3.74* HGB 11.0* 10.9* 10.8* HCT 33.2* 33.8* 33.6* PLT 81* 67* 71* MCV 88 91 90 MCH 29.3 29.4 28.9 MCHC 33.1 32.2 32.1 NEUTROABS 2.83 -- -- Recent Labs 12/15/22 0714 12/16/22 0336 NA 137 136 K 4.4 4.4 CL 104 102 CO2 27 25 BUN 13 14 CREATININE 1.08* 1.00 CALCIUM 8.2* 8.4* MG 1.8 1.8 LABALBU 3.1* 3.0* Recent Labs 12/14/22 022 PROTIME 11.9 INR 1.1 Recent Labs 12/14/22 0222 TROPONINI <0.034 Recent Labs 12/14/22 0448 BEART 2.10 Recent Labs 12/15/22 0714 12/16/22 0336 TBIL 0.6 0.6 ALKPHOS 72 94 AST 21 21 ALT 12 12 Recent Labs 12/14/22 0806 COLOR Yellow CLARITYU Clear GLUCOSEU Negative BILIRUBINUR Negative KETONES Negative LABSPEC 1.013 PHUR 6.5 PROTEINUA Negative UROBILINOGEN Normal NITRITE Negative LEUKESTER Negative WBCU 0 - 3 RBCU 3 - 10* BACTERIA None Seen LABCAST <=[address] ABDOMEN PELVIS W CONTRAST Result Date: 12/14/2022 1. No acute abnormality in the abdomen or pelvis. 2. Extensive chronic portal vein thrombosis with new involvement of the superior mesenteric vein compared to August 2022. 3. Cirrhotic configurationof the liver. 4. Splenomegaly with chronic splenic infarct, status post coil embolization. 5. Priorhysterectomy and cholecystectomy. 6. Unchanged small left adrenal nodule and right external iliac lymph node, both shown to be hypermetabolic on recent comparison PET CT. Please see that report for management recommendations. I have personally reviewed the images and the above interpretation and agree with the findings. CT ANGIO CHEST PE PROTOCOL Result Date: 12/14/2022 1. No evidence of pulmonary embolism. 2. Suspect mild hydrostatic edema on expiratory phase imaging. I have personally reviewed the images and the above interpretation and agree with the findings. XR CHEST 2 VIEWS Result Date: 12/14/2022 1. Questionable hazy opacities throughout both lungs with slight thickening of the pulmonary interstitium, possibly representing interstitial disease or very mild edema. This is similar in appearancecompared to May 2022. I have personally reviewed the images and the above interpretation and agreewith the findings. PET CT EYE TO THIGH Result Date: 12/07/2022 1. Previously noted nodule in the left lung base has resolved consistent with a benign process. 2. FDG avid mildly enlarged right external iliac lymph node which is slightly larger compared to 2015 (SUV max 14.13). This is nonspecific but the intense uptake is concerning for underlying malignancy. If biopsy is not pursued, follow-up MRI pelvis is recommended in 3 months. 3. Scattered focal metabolic activity particularly in near proximity to aforementioned abnormal lymph node is indeterminate. Further evaluation with colonoscopy is recommended. 4. Left adrenal 1.4 cm nodule indeterminate by CT criteria. It can be evaluated with dedicated MR abdomen and pelvis. 5. Cirrhosis, portal hypertension, splenomegaly with evolving infarct and chronic portal vein thrombosis. 6. Prior hysterectomy and cholecystectomy. I have personally reviewed the images and the above interpretation and agree withthe findings. US LIVER/ABDOMEN VISCERAL DOPPLER Result Date: 12/15/2022 1. Redemonstration of thrombus in the main portal vein, right portal vein, left portal vein, and superior mesenteric vein which are better assessed on recent comparison CT. Known thrombus in the splenic vein is not well assessed on this study due to shadowing from overlying bowel gas. 2. Cirrhotic configuration of the liver with no focal hepatic lesion identified. 3. Wedge-shaped region of decreased echogenicity spleen, likely sequela of splenic infarct as seen on comparison CT. I have personally reviewed the images and the above interpretation and agree with the findings. Medications Scheduled B-Complex with Vitamin C, 1 Tablet, DAILY enoxaparin, 60 mg, DAILY furosemide, 20 mg, DAILY gabapentin, 300 mg, TID lactulose, 30 mL, BID levothyroxine, 25 mcg, DAILY BEFORE BREAKFAST lidocaine 5 %, 1 Patch, DAILY pantoprazole, 40 mg, DAILY Or pantoprazole, 40 mg, DAILY sertraline, 50 mg, DAILY spironolactone, 50 mg, DAILY tiotropium bromide, 5 mcg, DAILY Continuous PRN calcium carbonate, 1 Tablet, QID PRN ipratropium-albuteroL, 3 mL, Q4H PRN lidocaine, 2 mg, PRN ondansetron (PF), 4 mg, Q4H PRN oxyCODONE, 5 mg, Q4H PRN ramelteon, 8 mg, AT BEDTIME PRN Assessment Tara Boothe??is a 62 y.o.??female with a medical history significant for COPD (2L home O2), QUIRZO (complicated by cirrhosis??and small esophageal varices), GERD, hypothyroidism, HUEY (not on CPAP),acquired 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 She wasfound to be hypotensive to 60-70 systolic??requiring levophed in the MICU, most likely??secondary to hypovolemia in the setting of acute viral illness with vomiting and poor PO intake, superimposed on chronic hypotension from cirrhosis.??Her cough and worsening portal vein thrombosis also both likely led to worsening of her chronic back pain. She is more comfortable and appears to be nearing baseline as she is mentating appropriately and no longer requiring oxygen while awake. Hematology was consulted and recommended lovenox 60 mg starting today and continuing through discharge. We will placea PT referral and aim for discharge in next few days. Her MUSA has resolved and STILL TENDER pain medicationscan restart, along with half dose of her STILL TENDER diuretics. Plan #Acquired protein C and S deficiency 2/2 liver disease #Chronic portal vein thrombosis with new superior mesenteric vein involvement Was previously on eliquis and therapeutic lovenox, however was discontinued due to thrombocytopeniaand GI bleed in 2020. - Hematology consulted, appreciate recs - Continue Lovenox 60 mg daily and discharge her on this dose if stable - Will follow-up outpatient with Heme ?? #Cirrhosis secondary to QUIROZ, hx of decompensated cirrhosis with esophageal varices - Restart spironolactone 50 mg (STILL TENDER dose 100 mg) - Restart lasix 20 mg (STILL TENDER dose 40 mg) - Restart STILL TENDER lactulose 30 mL BID - Renal diet, encourage PO intake ? #COPD, on 2L of home O2 overnight but not while awake - Supplemental O2 as needed, goal SpO2 >88%, currently stable on RA - Continue STILL TENDER inhaler- incruse ellipta - Duo nebs Q4H PRN - CPAP at night for HUEY - Patient just had a sleep study and is awaiting CPAP machine to be delivered to her home ?? #Hypotension, resolved Most likely hypovolemia secondary to vomiting and poor PO intake with underlying hypotension secondary to cirrhosis. Normal lactate. - Goal MAP>65 - CTM - Restart diuretics as listed above ?? #Chronic back pain - Restart STILL TENDER gabapentin 300 mg TID - Restart STILL TENDER oxycodone 5 mg q4h PRN - Lidocaine patch PRN - PT order placed ?? #Encephalopathy, appears to be resolved and back to basline - hold STILL TENDER trazodone - hold STILL TENDER gabapentin ?? #MUSA on CKD most likely pre renal in the setting of hypovolemia, resolved - Creatinine back to baseline - S/p fluid resuscitation in MICU, 2.5 L LR - Daily CMP, CTM as add STILL TENDER meds back on ?? #Recent acute illness with vomiting - Zofran 4mg IV Q4H PRN ?? #Hypothyroidism?? - STILL TENDER levothyroxine 25mcg - F/u TSH ?? #GERD - STILL TENDER pantoprazole 40 mg PO BID - Start TUMS ?? #Chronic leukopenia #Chronic normocytic anemia #Chronic thrombocytopenia - Daily CBC ?? #Depression/ Anxiety -Sertraline 50mg daily?? VTE Prophylaxis Lovenox 60 mg daily per hematology Code: Full Discharge Plan Pending PT eval, may need SIRISHA Consults None Radha Fischer, MS4 Pager #[phone] -- I was present for the history taking, physical exam, and clinical decision making documented. I have edited the medical student's note as appropriate (in underline or in blue). Osiris Shaw MD 12/17/22 PGY-3 Internal Medicine Epic Chat preferred, Pager [phone] Cosigned by Toya Reyez MD at 12/17/2022 7:07 EST Associated attestation - Toya Reyez MD - 12/17/2022 0707 EST Attending Attestation I interviewed and examined the patient. I have personally reviewed interval events, laboratory data, and imaging. I discussed the case with the inpatient resident team. I agree with findings and planof care as documented by the resident (or have edited in blue). The resident was present with the medical student for the history, exam and medical decision making. I have personally performed my own physical exam and medical decision making. I have verified and agree with the combined medical student/resident's documentation. aTra is feeling improved since admission. She notes still some mild right sided back pain, though reports its much better than what brought her in. Notes still some cough, though feels like breathing is about at baseline. No further abdominal pain. Feeling less tired today than yesterday. Extended viral panel negative yesterday, lung sounds without wheezing today. Kidney function back at baseline. No s/s of bleeding on lovenox dose. Suspect presentation likely due to a viral respiratory illness (not able to be tested on our swabs) with cough leading to worsening of baseline pain, in setting of progression of prior portal vein thrombosis into SMV leading compounding poor oral intake leading to hypotension. She appears to be nearing baseline today and has no findings consistent with a COPD exacerbation at this time. Will continue lovenox as outlined by hematology. Will reinitate home pain medications (gabapentin and oxycodone) and stop hydromorphone. Will reinitate home diuretics at half dose with plan to increase to home dose tomorrow if tolerated. Will try to mobilize with PT. Rest of plan and assessment as per below. Documentation and notation for evaluation of patient on 12/16/22. Toya Reyez MD Hospitalist Physician 12/17/22 at 7:06 * Anthony Gotti RT - 12/16/2022 0739 EST BS are dim with end-expiratory wheeze. PT has productive cough yielding small, thick, green sputum.RA * Arie Prabhakar - 12/15/2022 0946 EST CM Note CM attempted the assesment however the patient was resting and asked not be disturbed at this time.Cm will attempted again later in the day. If the patient is moved to a medicine PCU prior to assessment in the ICU, assessment will be completed by the new ongoing CM when able. CMSW Arie Prabhakar ECG TECHNICIAN * Scottie Joya MD - 12/15/2022 0736 EST Critical Care Progress Note Service Date: 12/15/2022 Admit Date: 12/14/2022 1:50 Reason for Admission to ICU: 62 y.o. female admitted with a chief complaint of back pain and now with a principal diagnosis of Sepsis (HCC). 24 hour events: Admitted to MICU on norepi Given 2L IVF, weaned from pressors Subjective Reports feeling much better this morning. Endorses ongoing back pain similar to baseline. Review of Systems A ten point review of systems was performed and was negative except for pertinent positives noted in the HPI Objective Temp: [36.4 ??C (97.5 ??F)-37.6 ??C (99.7 ??F)] , Heart Rate: [49 BPM-95 BPM] , Resp: [10-28] , BP:(65-113)/(35-83) , SpO2: [89 %-100 %] on 3 l/min Nasal cannula Intake/Output Summary (Last 24 hours) at 12/15/2022 0736 Last data filed at 12/15/2022 0600 Gross per 24 hour Intake 2642.96 ml Output 2525 ml Net 117.96 ml Tubes/Lines/Drains: PIVx2 Infusions/Rates: N/A Physical Exam: General: Well appearing. No acute distress. Obese. HEENT: Normocephalic, atraumatic. MMM. No conjunctival icterus or mucosal pallor. Neck: Full range of motion, trachea midline. Pulm: Diffuse wheezes in posterior godwin bilaterally. No crackles, rales, or rhonchi. No accessorymuscle use. CV: Regular rate and rhythm, normal S1/S2, no MRG appreciated. GI: Non tender to palpation, non distended. No HSM. : No carl present. Neuro: Alert and oriented x3. Face symmetrical without dysarthria. Moving all extremities spontaneously. Extremities: WWP. No lower extremity edema. Skin: No rashes, skin breakdown, or jaundice. Psych: Appropriate mood and affect Micro: 12/14 BCx 12/14 COVID, flu, RSV neg New Imaging (w/in 24h): US Abd Doppler IMPRESSION 1. Redemonstration of nonocclusive thrombus in the right portal vein, left portal vein, and main portal vein. There is thrombus without visible flow in the superior in the superior mesenteric vein. Splenic vein not well visualized. 2. Cirrhotic contour of liver. 3. Infarct in the spleen. Recent Labs 12/14/2222112/15/2214 WBC 3.93* 3.14* RBC 3.76* 3.71* HGB 11.0* 10.9* HCT 33.2* 33.8* MCV 88 91 MCH 29.3 29.4 MCHC 33.1 32.2 PLT 81* 67* NEUTROABS 2.83 -- BMP: Recent Labs 12/14/22221 NA 133* K 4.1 CL 97 CO2 30 BUN 15 CREATININE 1.23* CALCIUM 8.8 MG 1.8 LABALBU 3.7 Coags: Recent Labs 12/14/22221 PROTIME 11.9 INR 1.1 LFT: Recent Labs 12/14/22221 TBIL 0.5 ALKPHOS 144* AST 27 ALT 14 ABG: No results for input(s): PHISTAT, PCOISTAT, POISTAT, POCTCO2, S2EHFGUO, POCFIO2 in the last 72 hours.Cardiac Markers: Recent Labs 12/14/22 0222 TROPONINI <0.034 No results for input(s): PROCAL in the last 72 hours. Assessment Tara Boothe is a 62 y.o. female with a medical history significant for COPD (2L home O2), QUIROZ (complicated by cirrhosis and small esophageal varices), GERD, hypothyroidism, HUEY (not on CPAP), unspecified coagulopathy (splenic vein thrombosis with infarct, SMV thrombosis, previously on eliquis and lovenox but stopped due to thromyocytopenia and GIB), CKD (baseline creat 1.0), anxiety/depression who presented to the [facility] ED for low back, found to be hypotensive to 60-70 systolic requiring levophed, likely hypovolemia in the setting of acute illness with vomiting and poor PO intake, superimposed on chronic hypotension from cirrhosis. Blood pressure improved with IVF, off pressors, ready to transfer to floor. Plan PULM: #COPD on 2L of home O2 -Supplemental O2 titrate to goal SpO2 >88% -Continue STILL TENDER inhaler- incruse ellipta -Duo nebs Q4H PRN CV: #Hyopotension- does not appear to be hypovolemic shock given baseline mentation and lack of end organ dysfunction with normal lactate. Most likely hypovolemia secondary to vomiting and poor PO intakewith underlying hypotension secondary to cirrhosis. -Goal MAP>65 RENAL: #MUSA on CKD most likely pre renal in the setting of hypovolemia -Fluid resuscitation as above -Avoid nephrotoxins -Daily CMP ID: #Recent acute illness with vomiting -Zofran 4mg IV Q4H PRN ENDO: #Hypothyroidism -STILL TENDER levothyroxine 25mcg -F/u TSH FEN/GI: #Cirrhosis secondary to NAFLD -hold STILL TENDER spironolactone -hold STILL TENDER lasix -hold STILL TENDER lactulose -Renal diet, encourage PO intake #GERD -STILL TENDER pantoprazole 40 mg PO BID H/O: #Chronic leukopenia #Chronic normocytic anemia #Chronic thrombocytopenia -Daily CBC #Unspecified coagulopathy- was previously on eliquis and therapeutic lovenox, however was discontinued due to thrombocytopenia and GIB. Extensive chronic portal vein thrombosis seen on CT AP at admission. -ok for prophylactic dose of lovenox NEURO/PSYCH: #Encephalopathy- unclear how different from baseline, normal ammonia level at time of admission. -hold STILL TENDER trazodone -hold STILL TENDER gabapentin #Depression/ Anxiety -Sertraline 50mg daily MSK: #Chronic back pain -Hold STILL TENDER gabapentin -Hold STILL TENDER oxycodone -Dilaudid 1mg PO Q4H PRN for pain LINES: -PIV x2 PPX: -GI- pantoprazole -DVT- lovenox 40mg daily CODE STATUS: Full Code Clinical Condition: improving Hi Gaspar MD 12/15/2022 7:36 PGY-2 Emergency Medicine Pager #[phone] Attestation statement: I performed or was present during the brown or critical portions of the visit and participated in the management of the patient. I agree with the findings and plan of care documented in the resident's/fellow's note. Doing well this morning off pressors. May transfer to floor for continued care. Scottie Joya MD * Heike Pitts RN - 12/14/2022 1115 EST FOUR EYES SKIN ASSESSMENT Four Eyes skin assessment was performed on admission to the unit by Heike Pitts RN and Paola Payton . All skin intact verified by: Heike Pitts RN. Patient has the following devices at the time of this assessment: BP cuff and SCD sleeves. Device related pressure injury present? No Instructions: ??? Add LDA for any identified wounds ??? Add [facility] image for any suspected PI ??? Order wound consult if suspected PI identified Skin intact, LE somewhat bronzed, positive peripheral pulses, edema 1+ to LE. 12/14/2022 11:16 documented in this encounter H&P Notes * Scottie Joya MD - 12/14/2022 1134 EST MICU Admission H&P Admission Date: 12/14/2022 Date of Service: 12/14/2022 Hospital Day: LOS: 0 days PCP: Emigdio Veronica CC: abdominal pain/ low back pain Subjective: HPI: Tara Boothe is a 62 yo female with a medical history significant for COPD (2L home O2), QUIROZ (complicated by cirrhosis), GERD, hypothyroidism, HUEY (not on CPAP), unspecified coagulopathy (splenic vein thrombosis with infarct, SMV thrombosis, small esophageal varices, previously on eliquis and lovenox but stopped due to thromyocytopenia and GIB), CKD (baseline creat 1.0), anxiety/depression who presented to the [facility] ED for low back and abdominal pain, nausea, vomiting, SOB, and cough, found to be hypotensive to 60-70 systolic. In the ED she ws afebrile with HR 73, BP 86/49, RR 13, SpO2 94% on 3L NC. Labs were significant forsodium 133, creatinine 1.23, WBC 3.93, Hgb 11.0, PLT 81, D dimer 1494, negative troponin. CT PE wassignificant for probable mild hydrostatic pulmonary edema, negative for pulmonary embolism. CT AP was significant for extensive chronic portal vein thrombosis with involvement of SMV, known cirrhosis, but no acute abnormality. EKG was NSR with QTc 439. She received LR 1.5L, zofran, duonebs, azithromycin, CTX, and was placed on a levophed gtt. Tara is unable to provide much subjective, only waking up to answer one short question at a time. She states that the reason she came to the ED was for worsening back pain. She has had several days of cold symptoms and vomiting and during this time has not had much to eat or drink. Her breathinghas felt comfortable. She states that she has been taking her medications during this time but thenstates she has not been taking her home oxycodone. She denies fevers, chills, dizziness, cough, SOB, abdominal pain, lower extremity swelling. Review of Systems A ten point review of systems was performed and was negative except for pertinent positives noted in the HPI PMH PSH Past Medical History: Diagnosis Date Anemia Anxiety Asthma 12/10/2020 currently not taking - mild persistent - see dr. Veronica 11/20/2021; 01/11/22- uses rescue inhaler twice daily Blood clotting disorder (HCC-CMS) (HCC) blood clot in place- spleenic vein; per pt Bursitis right shoulder C. difficile colitis 07/25/2015 Hospitalized after kidney stone removal Chronic kidney disease Cirrhosis of liver ([facility] ([facility]) Community acquired pneumonia january 2021 COPD exacerbation ([facility]) ([facility]) 04/26/2020 Depression Drug-seeking behavior Per Dr Amelia Tijerina and notes from [facility] patient misconstrued information to several providers about multiple concurrent opiate prescriptions Environmental allergies Exercise involving walking takes a walk daily for 20 minutes; 01/11/22- weather dependant; Some SOB; cannot do stairs without stopping due to breathing and leg pain- GERD (gastroesophageal reflux disease) 12/10/2020 does not wake pt at night; 01/11/22- Med controlled- Hemorrhagic disorder ([facility]) ([facility]) History of general anesthesia History of kidney stones Hypersplenism syndrome Hypothyroidism Joint replaced 199912/10/2020 nya knees Mental disorder QUIROZ (nonalcoholic steatohepatitis) with cirrhosis Pancytopenia ([facility]) Poor dentition multiple missing teeth- Rheumatoid arthritis Sleep apnea uses simple O2 at night - 2. didn't require CPAP; 01/11/22- 2litres at night, can lay flat Swelling Takes diuretic, on and off throughout day; BLE; 01/11/22- Thrombocytopenia ([facility]) 12/10/2020 - see 11/20/2020 Dr. Veronica H&P, (managed by Starr Paige MD) Thyroid disease Past Surgical History: Procedure Laterality Date APPENDECTOMY BONE MARROW BIOPSY CHOLECYSTECTOMY CYSTOSCOPY 12/03/2020 GASTRIC FUNDOPLICATION 198912/02/2020 - confirmed by pt HERNIA REPAIR HYSTERECTOMY JOINT REPLACEMENT Bilateral with multiple revisions of both knees KNEE SURGERY Bilateral OTHER SURGICAL HISTORY splenic embolization TONSILLECTOMY UPPER GASTROINTESTINAL ENDOSCOPY multiple WRIST SURGERY Right after fracture Social History Family history Social History Socioeconomic History Marital status: Single Spouse name: Not on file Number of children: 3 Years of education: Not on file Highest education level: Not on file Occupational History 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 She is disabled. 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 1 Inhaler 0 chlorzoxazone (PARAFON FORTE) 500 mg tablet TAKE 1 TABLET BY MOUTH THREE TIMES A DAY NEEDED FOR MUSCLE SPASMS 90 Tablet 1 diclofenac sodium gel Apply 2 g topically 2 times daily as needed for Pain (Knee pain). 50 g 1 ferrous sulfate 324 mg (65 mg iron) tablet,delayed release (DR/EC) Take 1 Tablet by mouth every 48 hours. 30 Tablet 3 fluticasone propionate (FLOVENT DISKUS) 100 mcg/actuation blister with device furosemide (LASIX) 20 mg tablet Take 2 Tablets by mouth daily. Can take additional 20 mg tablet fora total of 60 mg martin if weights are up by greater then 2 pounds from baseline gabapentin (NEURONTIN) 300 mg capsule Take 1 Capsule by mouth 3 times daily. 270 Capsule 1 INCRUSE ELLIPTA 62.5 mcg/actuation INHALE 1 PUFF BY MOUTH DIRECTED DAILY 30 Each 0 ketotifen (ZADITOR) 0.025 % (0.035 %) ophthalmic solution PLACE 1 DROP IN BOTH EYES TWICE DAILY NEEDED FOR EYE IRRITATION. DAILY MAX: 2 DROPS PER EYE 5 mL 3 lactulose 10 gram/15 mL (15 mL) solution Take 10-20 g by mouth daily as needed (Constipation. Target goal of two bowel movements daily). 900 mL 0 levothyroxine (SYNTHROID) 25 mcg tablet Take 1 Tablet by mouth daily. 90 Tablet 1 lidocaine 2 % solution Take 10 mL by mouth every 3 hours as needed for Pain. 100 mL 0 lidocaine 4 % patch Apply to back once daily as needed for pain. Remove after 12 hours of use. 30 Patch 1 naloxone (NARCAN) 4 mg/actuation nasal spray 0.1 mL by nasal route as needed for Opioid Reversal. Repeat every 2-3 minutes if not effective and overdose is suspected. (spray is harmless in excess). (Patient not taking: Reported on 11/26/2022) 1 Each 1 ondansetron (ZOFRAN) 4 mg tablet TAKE 1 TABLET BY MOUTH EVERY 8 HOURS NEEDED FOR NAUSEA 30 Tablet 1 oxyCODONE (ROXICODONE) 5 mg immediate release tablet Take 1 Tablet by mouth 3 times daily as neededfor up to 28 days for Pain. Daily Max: 15 mg 84 Tablet 0 OXYGEN-AIR DELIVERY SYSTEMS MISC 2 L by misc (non-drug; combo route) route at bedtime. pantoprazole (PROTONIX) 40 mg tablet Take 1 Tablet by mouth 2 times daily. 180 Tablet 3 polyethylene glycol (GOLYTELY;NULYTELY) 236-22.74-6.74 -5.86 gram suspension Instructions mailed once procedure scheduled. 4000 mL 0 sertraline (ZOLOFT) 50 mg tablet Take 1 Tablet by mouth daily. 90 Tablet 3 spironolactone (ALDACTONE) 100 mg tablet TAKE 1 TABLET BY MOUTH EVERY DAY 90 Tablet 1 sucralfate (CARAFATE) 1 gram tablet TAKE 1 TABLET BY MOUTH FOUR TIMES A DAY 120 Tablet 3 traZODone (DESYREL) 100 mg tablet Take 2 Tablets by mouth at bedtime. 180 Tablet 1 Current Facility-Administered Medications Medication Route Frequency norepinephrine (LEVOPHED) 8 mg in D5W 250 mL infusion intravenous CONTINUOUS ondansetron (PF) (ZOFRAN) injection 4 mg intravenous Q1H PRN Facility-Administered Medications Ordered in Other Encounters Medication Route Frequency albuterol (ACCUNEB) 2.5 mg /3 mL (0.083 %) nebulizer solution Allergies Allergies Allergen Reactions Metoclopramide Nausea Only, Other (See Comments) and Shortness Of Breath Other reaction(s): RASH, SOB Jittery Morphine Anaphylaxis Sulfa (Sulfonamide Antibiotics) Anaphylaxis Tylenol [Acetaminophen] Other (See Comments) Contraindication with medical hx Flagyl [Metronidazole] Other (See Comments) Fatigue Aspirin Other (See Comments) Contraindication with medical hx Injectafer [Ferric Carboxymaltose] Lyrica [Pregabalin] Anxiety Insomnia Prochlorperazine Reglan [Metoclopramide Hcl] Rash Objective: 12/13 699 - 12/14 658 In: 500 Out: - Blood pressure 90/55, pulse 82, temperature 36.4 ??C (97.5 ??F), resp. rate 11, height 162.6 cm (64), weight (!) 102.1 kg (225 lb), SpO2 96 %. Physical Exam: General: Well appearing. No acute distress. Obese. HEENT: Normocephalic, atraumatic. MMM. No conjunctival icterus or mucosal pallor. Neck: Full range of motion, trachea midline. Pulm: Diffuse wheezes in posterior godwin bilaterally. No crackles, rales, or rhonchi. No accessorymuscle use. CV: Regular rate and rhythm, normal S1/S2, no MRG appreciated. GI: Non tender to palpation, non distended. No HSM. : No carl present. Neuro: Alert and oriented x3. Face symmetrical without dysarthria. Moving all extremities spontaneously. Extremities: WWP. No lower extremity edema. Skin: No rashes, skin breakdown, or jaundice. Psych: Appropriate mood and affect Data Review: CBC: Recent Labs 12/14/22221 WBC 3.93* HGB 11.0* HCT 33.2* MCV 88 PLT 81* BMP: Recent Labs 12/14/22221 NA 133* K 4.1 CL 97 CO2 30 BUN 15 CREATININE 1.23* MG 1.8 CALCIUM 8.8 SERGLU 88 Coags:No results for input(s): PROTIME, INR, PTT in the last 72 hours. LFTs: Recent Labs 12/14/22221 ALT 14 AST 27 ALKPHOS 144* TBIL 0.5 CONJBILI 0.0 UNCONJBILI 0.2 TP 6.7 LABALBU 3.7 No results for input(s): LIPASE, AMYLASE in the last 72 hours. UA: Recent Labs 12/14/22 0806 LABSPEC 1.013 COLOR Yellow CLARITYU Clear PHUR 6.5 GLUCOSEU Negative KETONES Negative BLOODU 1+* BILIRUBINUR Negative UROBILINOGEN Normal PROTEINUA Negative NITRITE Negative LEUKESTER Negative WBCU 0 - 3 RBCU 3 - 10* ABGs: Recent Labs 12/14/22 0448 BEART 2.10 VBGs: Recent Labs 12/14/22 0448 PHVENOUS 7.44* [id number] 85 Incorrect component name entered: [id number] Lactic Acid: Recent Labs 12/14/22 0515 LACTICACID 1.1 Incorrect component name entered: POCTLACTATE Micro COVID, flu, RSV negative 12/1412/14/22 blood cultures pending Imaging CT ABDOMEN PELVIS W CONTRAST Result Date: 12/14/2022 1. No acute abnormality in the abdomen or pelvis. 2. Extensive chronic portal vein thrombosis with new involvement of the superior mesenteric vein compared to August 2022. 3. Cirrhotic configurationof the liver. 4. Splenomegaly with chronic splenic infarct, status post coil embolization. 5. Priorhysterectomy and cholecystectomy. 6. Unchanged small left adrenal nodule and right external iliac lymph node, both shown to be hypermetabolic on recent comparison PET CT. Please see that report for management recommendations. I have personally reviewed the images and the above interpretation and agree with the findings. CT ANGIO CHEST PE PROTOCOL Result Date: 12/14/2022 1. No evidence of pulmonary embolism. 2. Suspect mild hydrostatic edema on expiratory phase imaging. I have personally reviewed the images and the above interpretation and agree with the findings. XR CHEST 2 VIEWS Result Date: 12/14/2022 1. Questionable hazy opacities throughout both lungs with slight thickening of the pulmonary interstitium, possibly representing interstitial disease or very mild edema. This is similar in appearancecompared to May 2022. I have personally reviewed the images and the above interpretation and agreewith the findings. PET CT EYE TO THIGH Result Date: 12/07/2022 1. Previously noted nodule in the left lung base has resolved consistent with a benign process. 2. FDG avid mildly enlarged right external iliac lymph node which is slightly larger compared to 2015 (SUV max 14.13). This is nonspecific but the intense uptake is concerning for underlying malignancy. If biopsy is not pursued, follow-up MRI pelvis is recommended in 3 months. 3. Scattered focal metabolic activity particularly in near proximity to aforementioned abnormal lymph node is indeterminate. Further evaluation with colonoscopy is recommended. 4. Left adrenal 1.4 cm nodule indeterminate by CT criteria. It can be evaluated with dedicated MR abdomen and pelvis. 5. Cirrhosis, portal hypertension, splenomegaly with evolving infarct and chronic portal vein thrombosis. 6. Prior hysterectomy and cholecystectomy. I have personally reviewed the images and the above interpretation and agree withthe findings. Cards 12/14/22 EKG NSR with QTc 439 Assessment: Tara Boothe is a 62 y.o. female with a medical history significant for COPD (2L home O2), QUIROZ (complicated by cirrhosis and small esophageal varices), GERD, hypothyroidism, HUEY (not on CPAP), unspecified coagulopathy (splenic vein thrombosis with infarct, SMV thrombosis, previously on eliquis and lovenox but stopped due to thromyocytopenia and GIB), CKD (baseline creat 1.0), anxiety/depression who presented to the [facility] ED for low back, found to be hypotensive to 60-70 systolic requiring levophed, likely hypovolemia in the setting of acute illness with vomiting and poor PO intake, superimposed on chronic hypotension from cirrhosis. Plan: PULM: #COPD on 2L of home O2 -Supplemental O2 titrate to goal SpO2 >88% -Continue STILL TENDER inhaler- incruse ellipta -Duo nebs Q4H PRN CV: #Hyopotension- does not appear to be hypovolemic shock given baseline mentation and lack of end organ dysfunction with normal lactate. Most likely hypovolemia secondary to vomiting and poor PO intakewith underlying hypotension secondary to cirrhosis. -S/p 1.5L LR in the ED -Additional 1L LR now -Wean levophed as able -F/u bnp -F/u random cortisol RENAL: #MUSA on CKD most likely pre renal in the setting of hypovolemia -Fluid resuscitation as above -Avoid nephrotoxins -Daily CMP ID: #Recent acute illness with vomiting -Zofran 4mg IV Q4H PRN ENDO: #Hypothyroidism -STILL TENDER levothyroxine 25mcg -F/u TSH FEN/GI: #Cirrhosis secondary to NAFLD -hold STILL TENDER spironolactone -hold STILL TENDER lasix -hold STILL TENDER lactulose -Renal diet, encourage PO intake #GERD -STILL TENDER pantoprazole 40 mg PO BID H/O: #Chronic leukopenia #Chronic normocytic anemia #Chronic thrombocytopenia -Daily CBC #Unspecified coagulopathy- was previously on eliquis and therapeutic lovenox, however was discontinued due to thrombocytopenia and GIB. Extensive chronic portal vein thrombosis seen on CT AP at admission. -ok for prophylactic dose of lovenox NEURO/PSYCH: #Encephalopathy- unclear how different from baseline, normal ammonia level at time of admission. -hold STILL TENDER trazodone -hold STILL TENDER gabapentin #Depression/ Anxiety -Sertraline 50mg daily MSK: #Chronic back pain -Hold STILL TENDER gabapentin -Hold STILL TENDER oxycodone -Dilaudid 1mg PO Q4H PRN for pain LINES: -PIV x2 PPX: -GI- pantoprazole -DVT- lovenox 40mg daily CODE STATUS: Full Kiya Murrieta, MS4 Pager [phone] 12/14/22 / 15:40 Attending attestation statement: I was present with the medical student for the history, exam, and medical decision making documented. I have personally performed my own physical exam and medical decision making. I have verified and agree with (or, as indicated, have edited) the medical student's documentation. Hypotension of unclear etiology; not in shock. Plan to replete volume, monitor. Clinical Condition: Tara Boothe is a critically ill 62 y.o. female. Over the past 24 hours, there has been a high probability of sudden, clinically significant or life threatening deterioration in the patient???s condition, which include the following diagnoses which I have managed: Principal Problem: Sepsis (HCC) Active Problems: Cirrhosis (HCC-CMS) (HCC) Critical Care time was provided in the form of interventions to treat and prevent further life threatening deterioration of the patient???s condition including ongoing monitoring and high complexity decision making regarding hemodynamics, respiratory status. My bedside involvement was required to monitor and direct the critical care that has been provided.Exclusive of procedures, my critical care time is 35 minutes. Scottie Joya MD MICU Attending 12/14/2022 documented in this encounter Consult Notes * Bobby Greenberg MD - 12/15/2022 1441 EST Interventional Radiology Consult Reason for consultation: Lymph node biopsy Requesting provider: Dr. Veronica Admit Date: 12/14/2022 Date of Service: 12/15/2022 Hospital day: LOS: 1 day HPI: (Location, Quality, Severity, Duration, Timing, Context, Modifying Factors, Associated Signs and Symptoms) Tara Boothe is a 62 yo female with a medical history significant for COPD (2L home O2), QUIROZ (complicated by cirrhosis), GERD, hypothyroidism, HUEY (not on CPAP), unspecified coagulopathy (splenic vein thrombosis with infarct, SMV thrombosis, small esophageal varices, previously on eliquis and lovenox but stopped due to thromyocytopenia and GIB), CKD (baseline creat 1.0), anxiety/depression who presented to the [facility] ED for low back and was admitted to hospital with a working diagnosis of sepsis. A recent PET study demonstrated an incidental finding that has resulted in a consultation for biopsy. PMH PSH Past Medical History: Diagnosis Date ??? Anemia ??? Anxiety ??? Asthma 12/10/2020 currently not taking - mild persistent - see dr. Veronica 11/20/2021; 01/11/22- uses rescue inhaler twice daily ??? Blood clotting disorder (HCC-CMS) (HCC) blood clot in place- spleenic vein; per pt ??? Bursitis right shoulder ??? C. difficile colitis 07/25/2015 Hospitalized after kidney stone removal ??? Chronic kidney disease ??? Cirrhosis of liver (HCC-CMS) (HCC) ??? Community acquired pneumonia january 2021 ??? COPD exacerbation (HCC-CMS) (HCC) 04/26/2020 ??? Depression ??? Drug-seeking behavior Per Dr Amelia Tijerina and notes from [facility] patient misconstrued information to several providers about multiple concurrent opiate prescriptions ??? Environmental allergies ??? Exercise involving walking takes a walk daily for 20 minutes; 01/11/22- weather dependant; Some SOB; cannot do stairs without stopping due to breathing and leg pain- ??? GERD (gastroesophageal reflux disease) 12/10/2020 does not wake pt at night; 01/11/22- Med controlled- ??? Hemorrhagic disorder (HCC-CMS) (HCC) ??? History of general anesthesia ??? History of kidney stones ??? Hypersplenism syndrome ??? Hypothyroidism ??? Joint replaced 199912/10/2020 nya knees ??? Mental disorder ??? QUIROZ (nonalcoholic steatohepatitis) with cirrhosis ??? Pancytopenia (HCC) ??? Poor dentition multiple missing teeth- ??? Rheumatoid arthritis ??? Sleep apnea uses simple O2 at night - 2. didn't require CPAP; 01/11/22- 2litres at night, can lay flat ??? Swelling Takes diuretic, on and off [...] WRIST SURGERY Right after fracture Social History Family history Social History Tobacco Use ??? Smoking status: Former Packs/day: 0.25 Years: 35.00 Pack years: 8.75 [...] Neg Hx ??? Endometrial Cancer Neg Hx Medications B-Complex with Vitamin C tablet 1 Tablet, oral, DAILY [START ON 12/16/2022] enoxaparin (LOVENOX) injection 60 mg, subcutaneous, DAILY HYDROmorphone (DILAUDID) tablet 1 mg, oral, Q4H PRN ipratropium-albuteroL (DUONEB) 0.5 mg-3 mg(2.5 mg base)/3 mL nebulizer solution 3 mL, nebulization,Q4H PRN levothyroxine (SYNTHROID) tablet 25 mcg, oral, DAILY BEFORE BREAKFAST lidocaine (PF) 10 mg/mL (1 %) injection 2 mg, intradermal, PRN magnesium sulfate 2 g in water 50 mL, intravenous, PRN ondansetron (PF) (ZOFRAN) injection 4 mg, intravenous, Q4H PRN pantoprazole (PROTONIX) tablet 40 mg, oral, DAILY Or pantoprazole (PROTONIX) injection 40 mg, intravenous, DAILY potassium chloride in water infusion 20 mEq, intravenous, PRN sertraline (ZOLOFT) tablet 50 mg, oral, DAILY tiotropium bromide (SPIRIVA RESPIMAT) 2.5 mcg/actuation inhalation mist 2 Puff, inhalation, DAILY albuterol (ACCUNEB) 2.5 mg /3 mL (0.083 %) nebulizer solution, , Allergies Allergies Allergen Reactions ??? Metoclopramide Nausea Only, Other (See Comments) and Shortness Of Breath Other reaction(s): RASH, SOB Jittery ??? Morphine Anaphylaxis ??? Sulfa (Sulfonamide Antibiotics) Anaphylaxis ??? Tylenol [Acetaminophen] Other (See Comments) Contraindication with medical hx ??? Flagyl [Metronidazole] Other (See Comments) Fatigue ??? Aspirin Other (See Comments) Contraindication with medical hx ??? Injectafer [Ferric Carboxymaltose] ??? Lyrica [Pregabalin] Anxiety Insomnia ??? Prochlorperazine ??? Reglan [Metoclopramide Hcl] Rash Review of Systems A ten point review of systems was performed. Pertinent positives are listed below, all others are negative: Constitutional: positive for fatigue and back pain. Objective/Physical Exam VS: Patient Vitals for the past 8 hrs: BP Heart Rate Resp Temp SpO2 O2 Flow Rate (L/min) O2 Device 12/15/22 1400 -- 70 BPM 12 -- 92 % -- -- 12/15/22 1300 -- 87 BPM 17 -- 92 % -- -- 12/15/22 1200 95/52 76 BPM 13 36.8 ??C (98.3 ??F) 90 % -- None 12/15/22 1100 -- 77 BPM 14 -- 94 % -- -- 12/15/22 1000 93/50 73 BPM 12 -- 96 % -- -- 12/15/22 0900 113/64 79 BPM 16 -- 94 % -- -- 12/15/22 0810 -- 78 BPM 16 -- 98 % 2 l/min Nasal cannula 12/15/22 0800 -- 76 BPM 21 36.7 ??C (98 ??F) 98 % 3 l/min Nasal cannula 12/15/22 0700 93/53 72 BPM 14 -- -- -- -- Relevant Labs Imaging PET CT performed November, shows a normal sized lymph node deep in the right pelvis that shows no signs of contour abnormality or displacement of adjacent tissues. The lymph node is stable in size as compared to studies from 2019 and 2014. The lymph node is deep in the right pelvis, tucked between the external iliac and posterior division of the internal iliac vessels. Assessment: Normal appearing, normal sized lymph node that has been stable in size and morphology for the last 7 to 8 years. The avidity demonstrated on the recent PET study may represent reactive tissue secondary to any inflammation in the leg given the lack of any other PET positive tissue in the pelvis. Additionally, the location of the node would put the patient at high risk for bleeding with any percutaneous biopsy approach. Plan: Recommend imaging follow-up in 3 to six months to assess for resolution of finding (like with the patient's lung nodule), change in size or morphology of the lymph node, or identification of a different biopsy target with a better risk profile. Bobby Greenberg MD 12/15/2022 14:42 * Amilcar Ramesh MD - 12/15/2022 1203 EST Hematology Consult (Initial) ASSESSMENT AND PLAN Assessment: 1. Hypercoagulable state - Tara has a known portal vein thrombus that is followed by [facility]. She has unfortunately failed anticoagulation a few times due to GI bleeding. She most recently was on apixaban 2.5 mg BID, which was stopped due to possible bleeding into her nonocclusive PVT. Given her cirrhosis and underlying hypercoagulable state with acquired protein C and S deficiencies she is both at higher risk for bleeding as well as clotting. Her current presentation is most concerning for clotting and from what I can tell she has not had any GI bleeding since August. We should attempt to anticoagulate, though we need to use caution given her propensity for bleeding 2. Mild chronic normocytic anemia - close to her baseline and stable, secondary to cirrhosis, chronic inflammation, and intermittent GI bleeds. Iron panel was last checked in April 2022 3. Chronic thrombocytopenia - also near her baseline, stable, and secondary to cirrhosis Plan: -continue enoxaparin 40 mg daily -increase to enoxaparin 60 mg daily prior to discharge (per primary team may discharge in 1-2 days,if this does not change we should increase to 60 mg tomorrow morning) -close follow up with [facility] for monitoring and anticoagulation titration (I have placed the referral) Patient seen and discussed with Dr. Moira RAMESH MD 12/15/2022 12:14 SUBJECTIVE Admit Date: 12/14/2022 Date of Service: 12/15/2022 PCP: Eimgdio Veronica Reason for Consultation: Portal vein thrombosis extension Consulting Provider: Radha Fischer, soon to be HPI: Tara had a long night and was pretty groggy when we went to visit with her. She reiterates that she has a long history of trialing blood thinners and stopping due to bleeding. When I asked when her most recent bleed was she was unable to answer (fell asleep), but it looks like it was at least August when she saw Dr. Padilla She is feeling better though is still very tired, when I asked what brought her into the hospital she said they found pneumonia. She was unaware, but not surprised, that her PVT was enlarged on CT and understands the rationale for starting anticoagulation again PMH PSH Past Medical History: Diagnosis Date ??? Anemia ??? Anxiety ??? Asthma 12/10/2020 currently not taking - mild persistent - see dr. Veronica 11/20/2021; 01/11/22- uses rescue inhaler twice daily ??? Blood clotting disorder (HCC-CMS) (HCC) blood clot in place- spleenic vein; per pt ??? Bursitis right shoulder ??? C. difficile colitis 07/25/2015 Hospitalized after kidney stone removal ??? Chronic kidney disease ??? Cirrhosis of liver (HCC-CMS) (HCC) ??? Community acquired pneumonia january 2021 ??? COPD exacerbation (HCC-CMS) (HCC) 04/26/2020 ??? Depression ??? Drug-seeking behavior Per Dr Amelia Tijerina and notes from [facility] patient misconstrued information to several providers about multiple concurrent opiate prescriptions ??? Environmental allergies ??? Exercise involving walking takes a walk daily for 20 minutes; 01/11/22- weather dependant; Some SOB; cannot do stairs without stopping due to breathing and leg pain- ??? GERD (gastroesophageal reflux disease) 12/10/2020 does not wake pt at night; 01/11/22- Med controlled- ??? Hemorrhagic disorder (HCC-CMS) (HCC) ??? History of general anesthesia ??? History of kidney stones ??? Hypersplenism syndrome ??? Hypothyroidism ??? Joint replaced 199912/10/2020 nya knees ??? Mental disorder ??? QUIROZ (nonalcoholic steatohepatitis) with cirrhosis ??? Pancytopenia (HCC) ??? Poor dentition multiple missing teeth- ??? Rheumatoid arthritis ??? Sleep apnea uses simple O2 at night - 2. didn't require CPAP; 01/11/22- 2litres at night, can lay flat ??? Swelling Takes diuretic, on and off [...] WRIST SURGERY Right after fracture Social History Family History Social History Tobacco Use ??? Smoking status: Former Packs/day: 0.25 Years: 35.00 Pack years: 8.75 [...] Neg Hx ??? Endometrial Cancer Neg Hx Problem List Patient Active Problem List Diagnosis Date Noted ??? Acute pulmonary edema (HCC-CMS) (HCC) 07/31/2022 Mild interstitial edema noted on chest x-ray, July,. Plan: patient has been notified. Repeat chest x-ray to be done in September 2022. Patient aware. CHENTE Alcantar ??? Sepsis (HCC) 12/14/2022 ??? Cirrhosis (HCC-CMS) (HCC) 12/14/2022 ??? Hypotension 02/11/2022 ??? Chronic respiratory failure with hypoxia (HCC-CMS) (HCC) 10/02/2021 ??? 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 Hypersplenism 09/28/2021 ??? Moderate protein-calorie malnutrition (HCC-CMS) (HCC) 07/02/2021 ??? Fluid overload 07/01/2021 ??? Frequent falls 06/29/2021 ??? Portal vein thrombosis 04/23/2021 PVT witih acquired deficiencies of anticoagulant proteins due to cirrhosis; bleeding on low doses anticoagulation. No fci anticoagulation being given. -04/23/21: Nonocclusive portal vein thrombosis (abd pain), [...] 2022 also neg for deep vein thrombosis. ??? COPD (chronic obstructive pulmonary disease) (HCC-CMS) (HCC) 01/21/2021 ??? Left ureteral stone 12/03/2020 ??? HUEY (obstructive sleep apnea) 04/26/2020 ??? Dyspnea 04/26/2020 ??? Partial small bowel obstruction (HCC-CMS) (HCC) 11/27/2019 ??? Other cirrhosis of liver (HCC) 09/30/2017 -NAFLD related cirrhosis with history of decompensation, chronic portal htn, hepatic encephalopathy, small esophageal varices on EGD in 2019, thrombocytopenia/hypersplenism, portal gastropathy -s/p partial splenic embolization (09/28/21) -portal vein thrombosis -Hep C Past provider: Dr. Ijeoma Smith, GI Department in [facility] for long-standing decompensated liver cirrhosis ??? Obesity, Class II, BMI 35-39.9 09/30/2017 Lost about 80 lbs over last 2 years - weight was as high at 250-60 ??? Hypothyroidism 09/30/2017 ??? Chronic pain syndrome 09/09/2017 Intolerant of Lyrica, Robaxin. Reportedly unable to take acetaminophen due to thrombocytopenia history. Unable to take NSAIDs due to renal insufficiency history. ??? Splenic vein thrombosis 08/24/2017 ??? Drug-seeking behavior Per Dr Amelia Tijerina and notes from [facility] patient misconstrued information to several providers about multiple concurrent opiate prescription. -IR embolization 09/28/21 for thrombocytopenia. Counts raised from 30s to 200K ??? Abdominal wall hernia 11/05/2016 ??? Allergic rhinitis 11/05/2016 ??? Pancytopenia (HCC) 07/18/2015 -bone marrow biopsy at [facility] in 2013: maturing trilineage hematopoiesis with no underlying hematopoietic abnormalities ??? Mild persistent asthma without complication 07/18/2015 ??? Peptic ulcer disease with hemorrhage 10/26/2021 EGD March 2021:esophagitis and pyloric channel ulcer. Oct 08, 2021: 9-day admission w/ 3 separate EGDs and several units RBC tx. Large posterior duodenalulcer and pyloric ulcer extending into duodenal bulb +mild portal gastropathy as likely sources. RxBID Protonix for 3 months then daily. -01-13-22: EGD NORMAL ([facility]) ??? Thrombocytopenia (HCC) 10/26/2021 Took lusutrombopag 3 mg once daily for [...] hypertrophied on CT January 2022 ??? Nephrolithiasis 11/10/2020 Added automatically from request for surgery [id number] Admission Medications Medications Prior to Admission Medication Sig Dispense Refill Last Dose ??? albuterol 90 mcg/actuation inhaler Inhale 1-2 [...] Pain (Knee pain). 50 g 1 ??? ferrous sulfate 324 mg (65 mg iron) tablet,delayed release (DR/EC) Take 1 Tablet by mouth every48 hours. 30 Tablet 3 ??? fluticasone propionate (FLOVENT DISKUS) 100 [...] PER EYE 5 mL 3 ??? lactulose 10 gram/15 mL (15 mL) solution Take 10-20 g by mouth daily as needed (Constipation. Target goal of two bowel movements daily). 900 mL 0 ??? levothyroxine (SYNTHROID) 25 mcg tablet Take [...] is suspected. (spray is harmless in excess). (Patient not taking: Reported on 11/26/2022) 1 Each 1 ??? ondansetron (ZOFRAN) 4 [...] 2 times daily. 180 Tablet 3 ??? polyethylene glycol (GOLYTELY;NULYTELY) 236-22.74-6.74 -5.86 gram suspension Instructions mailed once procedure scheduled. 4000 mL 0 ??? sertraline (ZOLOFT) 50 mg tablet Take 1 Tablet by mouth daily. 90 Tablet 3 ??? spironolactone (ALDACTONE) 100 mg tablet TAKE 1 TABLET BY MOUTH EVERY DAY 90 Tablet 1 ??? sucralfate (CARAFATE) 1 gram tablet TAKE 1 TABLET BY MOUTH FOUR TIMES A DAY 120 Tablet 3 ??? traZODone (DESYREL) 100 mg tablet Take 2 Tablets by mouth at bedtime. 180 Tablet 1 Current Medications Current Facility-Administered Medications: ??? B-Complex with Vitamin C tablet 1 Tablet, 1 Tablet, oral, DAILY, Karol Emanuel MD, 1 Tablet at 12/15/22829 ??? enoxaparin (LOVENOX) injection 40 mg, 40 mg, subcutaneous, DAILY, Hi Gaspar MD, 40 mg at 12/15/22829 ??? HYDROmorphone (DILAUDID) tablet 1 mg, 1 mg, oral, Q4H PRN, Hi Gaspar MD, 1 mg at 12/15/22 0751 ??? ipratropium-albuteroL (DUONEB) 0.5 mg-3 mg(2.5 mg base)/3 mL nebulizer solution 3 mL, 3 mL, nebulization, Q4H PRN, Hi Gaspar MD, 3 mL at 12/14/22 1950 ??? levothyroxine (SYNTHROID) tablet 25 mcg, 25 mcg, oral, DAILY BEFORE BREAKFAST, Hi Gaspar MD, 25 mcg at 12/15/22 0751 ??? lidocaine (PF) 10 mg/mL (1 %) injection 2 mg, 2 mg, intradermal, PRN, Hi Gaspar MD ??? magnesium sulfate 2 g in water 50 mL, 2 g, intravenous, PRN, Hi Gaspar MD ??? ondansetron (PF) (ZOFRAN) injection 4 mg, 4 mg, intravenous, Q4H PRN, Hi Gaspar MD ??? pantoprazole (PROTONIX) tablet 40 mg, 40 mg, oral, DAILY, 40 mg at 12/15/22 0830 OR pantoprazole (PROTONIX) injection 40 mg, 40 mg, intravenous, DAILY, Hi Gaspar MD ??? potassium chloride in water infusion 20 mEq, 20 mEq, intravenous, PRN, Hi Gaspar MD ??? sertraline (ZOLOFT) tablet 50 mg, 50 mg, oral, DAILY, Hi Gaspar MD, 50 mg at 12/15/22 0830 ??? tiotropium bromide (SPIRIVA RESPIMAT) 2.5 mcg/actuation inhalation mist 2 Puff, 5 mcg, inhalation, DAILY, Karol Emanuel MD, 2 Puff at 12/15/22 0809 Facility-Administered Medications Ordered in Other Encounters: ??? albuterol (ACCUNEB) 2.5 mg /3 mL (0.083 %) nebulizer solution, , , , Allergies Allergies Allergen Reactions ??? Metoclopramide Nausea Only, Other (See Comments) and Shortness Of Breath Other reaction(s): RASH, SOB Jittery ??? Morphine Anaphylaxis ??? Sulfa (Sulfonamide Antibiotics) Anaphylaxis ??? Tylenol [Acetaminophen] Other (See Comments) Contraindication with medical hx ??? Flagyl [Metronidazole] Other (See Comments) Fatigue ??? Aspirin Other (See Comments) Contraindication with medical hx ??? Injectafer [Ferric Carboxymaltose] ??? Lyrica [Pregabalin] Anxiety Insomnia ??? Prochlorperazine ??? Reglan [Metoclopramide Hcl] Rash Review of Systems: 10 point review of symptoms completed, but somewhat limited due to alertness Pertinent positives: as above Pertinent negatives: as above OBJECTIVE Objective/Physical Exam: VS: Patient Vitals for the past 8 hrs: BP Heart Rate Resp Temp SpO2 O2 Flow Rate (L/min) O2 Device 12/15/22 1100 -- 77 BPM 14 -- 94 % -- -- 12/15/22 1000 93/50 73 BPM 12 -- 96 % -- -- 12/15/22 0900 113/64 79 BPM 16 -- 94 % -- -- 12/15/22 0810 -- 78 BPM 16 -- 98 % 2 l/min Nasal cannula 12/15/22 0800 -- 76 BPM 21 36.7 ??C (98 ??F) 98 % 3 l/min Nasal cannula 12/15/22 0700 93/53 72 BPM 14 -- -- -- -- 12/15/22 0600 97/59 75 BPM 10 -- 95 % -- -- 12/15/22 0500 105/67 77 BPM 12 -- 95 % -- -- Pain: Patient Vitals for the past 8 hrs: Numeric Pain Level (Scale 1-10) Asleep 12/15/22 1000 -- Reassessed, sleeping comfortably, RR WNL. 12/15/22 0900 -- Reassessed, sleeping comfortably, RR WNL. 12/15/22 0800 8 -- 12/15/22 0751 8 -- Weight: Weight : (!) 102.1 kg (225 lb) Body mass index is 38.62 kg/m??. Exam: General: Somewhat alert and oriented, in no acute distress, groggy, drifting off during our conversation HEENT: MMM, no scleral icterus, EOMI Neck: Supple CVS: warm and well perfused Resp: breathing comfortably on room air Abdomen: Soft, non-tender, non distended Extremities: No cyanosis or edema Neuro: limited given her alertness, but no obvious focal deficits Skin: No rashes, lesions, petechiae on visible skin Labs: Reviewed AMILCAR RAMESH MD 12/15/2022 12:04 Cosigned by Raghav Pizarro MD at 12/15/2022 12:52 EST Associated attestation - Raghav Pizarro MD - 12/15/2022 1252 EST Attestation: I performed or was present during the brown or critical portions of the visit and participated in the management of the patient on 12/15/2022. I agree with the findings and plan of care as documented in the resident's/fellow's note. Patient's with liver disease are at both increased risk of thrombosis and bleeding, AC management is therefore challenging. Unfortunately she has had bleeding on low-dose Eliquis before. However she also continues to have progression of her portal vein thrombosis. At this point would recommend resta rting anticoagulation however low-dose. She is now 40 mg daily of Lovenox which seems to be reasonable. We would plan is to discharge her on intermediate dose around 60 mg daily considering her kidney function and her history of bleeding and concomitant cirrhosis. She will need to stay on this doseuntil she is seen by our thrombosis and hemostasis program again to consider either the same treatment on a weekly dose low bit more if she is tolerating. Raghav Pizarro MD 12/15/2022 12:50 documented in this encounter ED Notes * Alfred Mauricio MD - 12/14/2022 0947 EST Relevant Data as of 12/14/22 0947 TueDec 14, 2022 0944 ER Sign-Out Note Tara Boothe is a 62 y.o. female who presents to the ED with cough, dyspnea, right-sided chest pressure Care and work-up prior to sign out includes CT PE which does not reveal any evidence of PE. That said, patient remains more somnolent and hypotensive to the 60s to 70s systolic I assumed care of patient from results of CT pending. CT PE did not reveal evidence of PE. Questionof pulmonary edema. Chest x-ray did show evidence of possible left lower lobe pneumonia but this was not corroborated on CT scan. That said after patient came back from CT PE study, was still persistently hypotensive to the 70s systolic. Patient mental status is awake alert oriented x4 but patient feels more sleepy than usual. Rcydu-gd-hiom ultrasound was performed and revealed a hyperdynamic heart with grossly normal ejection fraction., Suspect some component of hypovolemia rather than fluid overload. Patient was empirically started on Levophed, give an additional liter of fluid and empirically treated with ceftriaxone and azithromycin. Medical ICU was consulted and they agreed for admission. [JL] Relevant Data User Index [JL] Alfred Mauricio MD [WF] Carlos Chacko IV, MD Cosigned by Jayden Brown MD at 12/14/2022 15:39 EST Associated attestation - Jayden Brown MD - 12/14/2022 1539 EST I, Jayden Brown MD, performed a history and exam of this patient and discussed the case with the resident. I have reviewed and edited this note, and the documentation is consistent with my findings, assessment and plan. I fully participated in the medical decision making. * Sonu Graves RN - 12/14/2022 0831 EST Pt moved to AC 19. Report given to KENN Jensen, pt exits my care at this time. * Javid Flores RN - 12/14/2022 0830 EST Pt transferred to acute care side of ED, I assumed care of the patient at this time. Pt is drowsy, difficult to keep awake, though alert to voice and oriented/answering questions appropriately. She states that she occasionally becomes this drowsy due to poor sleep patterns. Pupils are small, pt states she did not take more pain medication than usual. BP remains low, see vitals flow sheet. ED MD aware of pt condition. * Sonu Graves RN - 12/14/2022 0746 EST Pt asleep, BP reading low. Pt awoken, requests bedside commode. Pt stands and pivots successfully, reports dizziness, no visible unsteadiness. BP reading after still low x2, see flowsheet. MD Cook made aware, plan to call ICU. * Sonu Graves RN - 12/14/2022 0426 EST Pt's BP 89/48, MD Cook aware. Meds administered at this time. Pt remains drowsy, placed on 3L NC as per home order and new IV initiated. * Zully Cook MD - 12/14/2022 0406 EST Emergency Department Visit This documentation is recorded by Tino Crews acting as Scribe under the direction and presence of Zully Cook MD. Zully Cook MD: I personally performed the services recorded by the scribe in my presence. I confirm the scribe's documentation has been reviewed by me to accurately and completely record my work, treatment, procedures, and medical decision making. Medical Decision Making Patient is a 62 y.o. female with extensive clotting history as well as COPD, HEUY, and chronic respiratory failure who presents to the ED for a few days of lower back and abdominal pain , with the pain preventing the patient from moving or falling asleep and being worsened with motion and deep inspiration. Patient also endorses vomiting, nausea, reduced PO intake, shortness of breath, and painful stabbing cough. Patient is not currently on a blood thinner. Patient notes that she was exposed toCOVID about 7 days ago. On exam, patient was somnolent and obese, and had right chest wall tenderness, diffuse abdominal tenderness, and bilateral lower extremity edema (which patient states is baseli ne). Would have concern for PE given not anticoagulated. Also with known portal vein thrombus, would have concern for worsening given location of pain. Increasing hypotension while here. CT ANGIO CHEST PE PROTOCOL Preliminary Result 1. No evidence of pulmonary embolism. 2. Findings likely reflective of diffuse pulmonary edema. Correlate with clinical findings. CT ABDOMEN PELVIS W CONTRAST Preliminary Result 1. No acute abnormality in the abdomen or pelvis. 2. Extensive chronic portal vein thrombosis with new involvement of the superior mesenteric vein compared to August 2022. 3. Cirrhotic configuration of the liver. 4. Splenomegaly with chronic splenic infarct, status post coil embolization. 5. Distended bladder. Correlate for urinary retention and need for Carl catheter. 6. Prior hysterectomy and cholecystectomy. 7. Unchanged small left adrenal nodule and right external iliac lymph node, both shown to be hypermetabolic on recent comparison PET CT. Please see that report for management recommendations. XR CHEST 2 VIEWS Preliminary Result 1. Left lower lobe opacity suggestive of pneumonia in the appropriate clinical context. 2. Background of possible interstitial disease or edema. This is similar in appearance compared to May 2022. Patient had labs that were reviewed independently by myself, significant for elevated D-dimer (1,494) and negative troponin. Patient had an EKG performed upon arrival to the ED which was reviewed and interpreted by myself. EKG was significant for a rate of 75, WV 149, QTc 439, wavy baseline in V5, and flat lead III. 0424 - Patient was administered 500 mL lactated ringers IV and 4 mg Zofran IV 0430 - Patient was administered a duoneb Discussed with IM, they will eval given ongoing severe pain of unclear etiology, potentially related to portal vein thrombus. Increasing hypotension, IM requested MICU eval. MICU consulted. Given additional IVF, though this is challenging given pulm edema seen on CT and hypoxia. Critical care performed. Time of care: 30 min. Time is exclusive of separately billable procedures.Time includes: direct patient care, patient reassessment, coordination of patient care, interpretation of data (laboratory data, pulse oximetry, arterial blood gases and chest xrays), review of patient's medical records, medical consultation, consultation with family regarding care and documentation of patient care. Procedures excluded from critical care time: none. An EKG was obtained and independently interpreted. Imaging obtained was reviewed and independently interpreted. Laboratory data was reviewed and independently interpreted. } Final diagnoses: None Disposition: No disposition on file Chief complaint: Chest pain HPI Tara Boothe is a 62 y.o. female with a history of chronic pain syndrome, chronic respiratory failure with hypoxia, acute pulmonary edema, pancytopenia, asthma, splenic vein thrombosis, hypothyroidism, HUEY, COPD, portal vein thrombosis, hernia, intermittent low blood pressure with unknown etiology, and s/p cholecystectomy who presents to the ED for chest pain. Patient says that she began having lower back and abdominal pain a few days ago, with the pain preventing her from getting out of bedtonight to go to the bathroom. Patient says that the pain is worse with motion and on deep inspiration, and is also preventing her from sleeping. Patient also endorses vomiting beginning two days ago, as well as nausea, reduced PO intake, shortness of breath, cough with accompanying stabbing pain, and baseline leg swelling. Patient denies diarrhea, urinary symptoms, runny nose, sore throat, or bloody stool. Patient was unsure if she had had a fever. Patient says that she has been compliant withmedications (including Lasix and spirolactone), and that she has been using her inhalers. Patient says that she has been using Oxycodone for pain control, and also has been taking Zofran, although ithas been insufficient to control her vomiting. Patient notes that she had a COVID exposure 7 days ago. Patient also notes that she had a lung PET scan last week, and that there were recently nodules found in her adrenal glands for which she is being scheduled for a biopsy and colonoscopy. Patient says that while she used to take a blood thinner, she was taken off of it last summer since her bloodwas too thin. Patient says that she uses 3 L of oxygen at home when sleeping, or as needed. History was provided by: Patient, medical records Patient's pertinent PMH, FH, SH were reviewed and edited as necessary. Physical Exam BP 92/52 Pulse 82 Temp 36.9 ??C (98.5 ??F) (Oral) Resp 13 Ht 162.6 cm (64) Wt (!) 102.1 kg (225 lb) SpO2 98% BMI 38.62 kg/m?? A medical screening exam was performed. Physical Exam Vitals and nursing note reviewed. Constitutional: General: She is not in acute distress. Appearance: She is obese. Comments: Somnolent HENT: Head: Normocephalic and atraumatic. Right Ear: External ear normal. Left Ear: External ear normal. Nose: Nose normal. Mouth/Throat: Mouth: Mucous membranes are moist. Eyes: Extraocular Movements: Extraocular movements intact. Pupils: Pupils are equal, round, and reactive to light. Cardiovascular: Rate and Rhythm: Normal rate and regular rhythm. Heart sounds: No murmur heard. No friction rub. No gallop. Pulmonary: Effort: Pulmonary effort is normal. No respiratory distress. Breath sounds: No wheezing, rhonchi or rales. Chest: Chest wall: Tenderness (right) present. Abdominal: General: There is no distension. Palpations: Abdomen is soft. Tenderness: There is generalized abdominal tenderness. Musculoskeletal: General: Normal range of motion. Cervical back: Normal range of motion. Right lower leg: Edema present. Left lower leg: Edema present. Skin: General: Skin is warm and dry. Neurological: General: No focal deficit present. Mental Status: She is oriented to person, place, and time. Mental status is at baseline. Psychiatric: Mood and Affect: Mood normal. Behavior: Behavior normal. Procedures Procedures * Sonu Graves RN - 12/14/2022 0351 EST Assumed care of pt from KENN High at 0300. Pt assessed, a&ox4, drowsy. Pt reports L sided CP worsened by movement x 2 days. Pt reports decline of ability to complete ADLs. Pt reports PET scan showed masses on her lungs. Pt resting in stretcher, on tele and pox with Bps cyling. Awaiting provider orders * Sonu Graves RN - 12/14/2022 0331 EST 12 Lead EKG Performed by SONU GRAVES RN and shown to Zully Cook MD. * Andrea Theodore RN - 12/14/2022 0256 EST Patient also states she vomited a few times today. Took zofran in the AM with no relief. * Andrea Theodore RN - 12/14/2022 0157 EST Patient brought in by ambulance from home for c/o right sided chest pain. She recently had a PET scan last week where they found new nodules in her adrenal glands. She is to have a biopsy and colonoscopy to evaluate these new lesions. She also describes a painful cough and recently, has been coughing up thick mucous. documented in this encounter Miscellaneous Notes * Plan of Care - Stacey Ortez RN - 12/18/2022 0613 EST States shes at baseline * Plan of Care - Stacey Ortez RN - 12/18/2022 0217 EST Problem: High Fall Risk: Goal: Patient will Remain Free of Falls due to Med. Side Effects Outcome: Met This Shift Problem: High Fall Risk: Goal: Patient Will Remain Free from Fall-Related Injury Outcome: Met This Shift Problem: High Fall Risk: Goal: Patient will Remain Free of Falls due to Altered Elimination Outcome: Met This Shift Problem: High Fall Risk: Goal: Patient will Remain Free of Falls due to Dizziness/Vertigo Outcome: Met This Shift Problem: Daily Care Plan Goals Goal: Care Plan Documentation Outcome: Met This Shift Problem: Sensory: Goal: Ability to compensate for vision loss will be supported Outcome: Met This Shift Data: Pt axo3 ambulated around unit without difficulty. Complains of back pain which she states shehas been advised she has OA. Action: Provided pain medication per JAN. Response: Pt able to rest with minimal interruptions vital signs stable. Will continue to monitor. STACEY ORTEZ RN 12/18/2022 2:18 * Plan of Care - Azam Pérez RN - 12/17/2022 1638 EST Problem: Daily Care Plan Goals Goal: Care Plan Documentation Outcome: Ongoing Flowsheets (Taken 12/17/2022 0842) Area of Focus: Pain/ Comfort Goal This Shift: pt will report tolerable pain level Data: Assumed care at 0700. Pt A/O x3. Independent in room. Cont of B/B. Pt continues to report pain to lower back. PRNs given and scheduled meds for pain. Pt tolerated ambulating on unit without issue. VSS on RA. Pt off unit x1 fr chest xray and xray of R foot. Action: Meds given per JAN. PRNs for pain. Assessments as charted. Hourly rounding completed. Response:Pt in room resting at this time. Pt denies pain, SOB, n/v at this time. Call light within pts reach. AZAM PÉREZ RN 12/17/2022 16:38 * Plan of Care - Amilcar Ramesh MD - 12/17/2022 1453 EST Brief hematology note Tara has been stable on 60 mg of enoxaparin and should be discharged on this dose. She will haveclose follow up with hematology as an outpatient for additional dose titrations as needed (I have placed the referral). Per chart review she will tentatively be discharged tomorrow/over the weekend Hematology to sign off, please reach out with any questions or concerns AMILCAR RAMESH MD 12/17/2022 15:44 * Plan of Care - Mirna Moody RN - 12/17/2022 8258 EST Problem: Daily Care Plan Goals Goal: Care Plan Documentation Outcome: Ongoing Data: Assumed care at 2330. Tara transferred to from the ICU after being admitted for hypotension d/t portal vein thrombosis. Planning for potential discharge today pending PT/OT evaluation. Aox3, VSS, on RA while awake/2L O2 via NC while sleeping, independently ambulating. Tele shows SR. Reports 9/10 lower back pain (chronic)- physician aware. Action: Performed shift assessment. Reviewed and administered scheduled/PRN medications. Hourly rounding completed. Response: Call hines is within reach. Tara is able to make her needs known. MIRNA MOODY RN 12/17/2022 3:58 * Plan of Care - Nita Diane RN - 12/16/2022 2205 EST Problem: Daily Care Plan Goals Goal: Care Plan Documentation Outcome: Met This Shift Flowsheets (Taken 12/16/2022 0107) Area of Focus: Mobility Goal This Shift: pt will get up to chair this shift Note: Data: pt wanting to ambulate this evening. Action: pt ambulating multiple times around unit independently Response: pt did not desat while ambulating NITA DIANE RN 12/16/2022 22:04 * Plan of Care - Azam Pérez RN - 12/16/2022 1513 EST Data: Assumed care at 1450. Pt A/O x 3. CG OOB. Pt VSS on RA. Action: Assessments as charted. 4-eyes completed. Pt orientated to room and call light. Response:Pt in room resting at this time. Pt denies pain, SOB, n/v at this time. Call light within pts reach. AZAM PÉREZ RN 12/16/2022 15:13 * Plan of Care - Jalil Mina RN - 12/16/2022 0855 EST Problem: Daily Care Plan Goals Goal: Care Plan Documentation Outcome: Met This Shift Flowsheets (Taken 12/16/2022 3115) Area of Focus: Respiratory Goal This Shift: Pt will maintain sats>88% Data: Pt has sats>94% on room air. Occasional wheezes present. C/O pain generalized-would like her home meds restarted. Action: Transfer to general medicine. Check with housestaff about restarting home meds. Response: Ready to transfer to the floor. JALIL MINA RN 12/16/2022 8:55 * Plan of Care - Christine Soto RN - 12/16/2022 0704 EST Problem: High Fall Risk: Goal: Patient will Remain Free of Falls due to Med. Side Effects Outcome: Ongoing Problem: Daily Care Plan Goals Goal: Care Plan Documentation Outcome: Ongoing Data: Assumed care of pt at 1900. Pt on 2L NC. Aox3. Action: Meds given per JAN. OOB to chair and bed side commode SBA. O2 off and on throughout night. PRN dilaudid given x1. Response: Pt in chair. No complaints of pain. O2 sats >90. No falls this shift. CHRISTINE SOTO RN 12/16/2022 7:04 * Plan of Care - Aldo Jansen RN - 12/15/2022 1905 EST Problem: Daily Care Plan Goals Goal: Care Plan Documentation Outcome: Ongoing Flowsheets (Taken 12/15/2022 0800 by Anthony Ramos RN) Area of Focus: Respiratory Goal This Shift: maintain O2 sats >92% Note: Data: Pt admitted 12/14 with hypotension requiring vasopressors. Pt AAO able to follow commands and make needs known. NSR, voiding adequate urine. Standby assist when oob. Tolerating PO diet. Action: Monitored vital signs, I/O, and lab values. Medicated for back pain as needed. Transfer orders received awaiting bed placement. Response: VSS, NSR, will continue to monitor. ALDO JANSEN RN 12/15/2022 19:01 * Transfer Summary (Intrafacility) - Osiris Shaw MD - 12/15/2022 0901 EST [facility] Medicine Transfer Summary Service Date: 12/15/2022 Admit Date: 12/14/22 Primary Care Provider: Emigdio Veronica Chief Complaint: Posterior back pain HPI Tara Boothe is a 62 y.o. 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 This has been going on for several days. She also has been coughing up thick stuff for several days as well. She also has had fatigue on and off and poor appetite forseveral weeks. She had poor PO intake and nausea and vomiting for the past few days. In the ED, she ws afebrile with HR 73, BP 86/49, RR 13, SpO2 94% on 3L NC. Labs were significant for sodium 133, creatinine 1.23, WBC 3.93, Hgb 11.0, PLT 81, D dimer 1494, negative troponin. CT PE was significant for probable mild hydrostatic pulmonary edema, negative for pulmonary embolism. CT AP was significant for extensive chronic portal vein thrombosis with involvement of SMV, known cirrhosis, but no acute abnormality. EKG was NSR with QTc 439. She received LR 1.5L, zofran, duonebs, azithromycin, CTX, and was placed on a levophed gtt after being found to be hypotensive to 60-70 systolic.This was thought to be secondary to hypovolemia in the setting of acute illness with vomiting and poor PO intake, superimposed on chronic hypotension from cirrhosis. She was admitted to the MICU where she received volume resuscitation with crystalloid. She responded well to this and was weaned off of levophed by the evening of 12/14. She was mentating well throughout her MICU stay. She was transferred to the medicine team on 12/15 for further management. Gena lives with roommates in [place]. At baseline, she typically can ambulate on her own including stairs, though she does avoid stairs on days she is feeling bad. She smoked starting at age 15 and quit a few years ago with the max amount being 1 PPD during that time. She does not smoke. On review of the chart, she has a history of a portal vein thrombosis in the setting of acquired protein [employer] deficiencies in the setting of underlying cirrhosis of which she prior was on apixaban. This was then later complicated by bleeding, of which apixaban was discontinued in January 2022, she hassince been following closely with hematology. Review of Systems A complete 10 point ROS was performed and pertinent positive and negative findings listed in HPI, otherwise negative. Past Medical History: Diagnosis Date Anemia Anxiety Asthma 12/10/2020 currently not taking - mild persistent - see dr. Veronica 11/20/2021; 01/11/22- uses rescue inhaler twice daily Blood clotting disorder ([facility]) ([facility]) blood clot in place- spleenic vein; per pt Bursitis right shoulder C. difficile colitis 07/25/2015 Hospitalized after kidney stone removal Chronic kidney disease Cirrhosis of liver ([facility] ([facility]) Community acquired pneumonia january 2021 COPD exacerbation ([facility]) ([facility]) 04/26/2020 Depression Drug-seeking behavior Per Dr Amelia Tijerina and notes from [facility] patient misconstrued information to several providers about multiple concurrent opiate prescriptions Environmental allergies Exercise involving walking takes a walk daily for 20 minutes; 01/11/22- weather dependant; Some SOB; cannot do stairs without stopping due to breathing and leg pain- GERD (gastroesophageal reflux disease) 12/10/2020 does not wake pt at night; 01/11/22- Med controlled- Hemorrhagic disorder ([facility]) ([facility]) History of general anesthesia History of kidney stones Hypersplenism syndrome Hypothyroidism Joint replaced 199912/10/2020 nya knees Mental disorder QUIROZ (nonalcoholic steatohepatitis) with cirrhosis Pancytopenia ([facility]) Poor dentition multiple missing teeth- Rheumatoid arthritis Sleep apnea uses simple O2 at night - 2. didn't require CPAP; 01/11/22- 2litres at night, can lay flat Swelling Takes diuretic, on and off throughout day; BLE; 01/11/22- Thrombocytopenia ([facility]) 12/10/2020 - see 11/20/2020 Dr. Veronica H&P, (managed by Starr Paige MD) Thyroid disease Past Surgical History: Procedure Laterality Date APPENDECTOMY BONE MARROW BIOPSY CHOLECYSTECTOMY CYSTOSCOPY 12/03/2020 GASTRIC FUNDOPLICATION 1990 12/02/2020 - confirmed by pt HERNIA REPAIR HYSTERECTOMY JOINT REPLACEMENT Bilateral with multiple revisions of both knees KNEE SURGERY Bilateral OTHER SURGICAL HISTORY splenic embolization TONSILLECTOMY UPPER GASTROINTESTINAL ENDOSCOPY multiple WRIST SURGERY Right after fracture Social History Tobacco Use Smoking status: Former Packs/day: 0.25 Years: 35.00 Pack years: 8.75 Types: Cigarettes Smokeless tobacco: Never Tobacco comments: smokes couple times a week Substance Use Topics Alcohol use: No Family History Problem Relation [...] Cancer Neg Hx Endometrial Cancer Neg Hx No current outpatient medications on file. Allergies Allergen Reactions Metoclopramide Nausea Only, Other (See Comments) and Shortness Of Breath Other reaction(s): RASH, SOB Jittery Morphine Anaphylaxis Sulfa (Sulfonamide Antibiotics) Anaphylaxis Tylenol [Acetaminophen] Other (See Comments) Contraindication with medical hx Flagyl [Metronidazole] Other (See Comments) Fatigue Aspirin Other (See Comments) Contraindication with medical hx Injectafer [Ferric Carboxymaltose] Lyrica [Pregabalin] Anxiety Insomnia Prochlorperazine Reglan [Metoclopramide Hcl] Rash Objective Vitals Temp: [36.4 ??C (97.5 ??F)-37.6 ??C (99.7 ??F)] , Heart Rate: [49 BPM-95 BPM] , Pulse: --, Resp: [10-28] , BP: (84-113)/(44-83) , SpO2: [89 %-100 %] , O2 Flow Rate (L/min): 2 l/min Numeric Pain Level (Scale 1-10): 8 Weight: Weight : (!) 102.1 kg (225 lb) Body mass index is 38.62 kg/m??. Physical Exam General appearance: Alert, cooperative, in no acute distress HEENT: Normocephalic, atraumatic Skin: Skin color, tempature, turgor normal. No rashes or lesions Lungs: Lungs clear to auscultation in anterior lung godwin, no wheezes appreciated Heart: Regular rate and rhythm, normal S1/S2, no murmurs, rubs, or gallops Abdomen: Soft, non-tender; bowel sounds normal Neurologic: Grossly normal, moving all extremities, cranial nerves intact Extremities: Warm, atraumatic, no cyanosis or edema Psych: affect appropriate Labs I have personally reviewed Recent Labs 12/14/2222112/15/22 0714 WBC 3.93* 3.14* RBC 3.76* 3.71* HGB 11.0* 10.9* HCT 33.2* 33.8* MCV 88 91 MCH 29.3 29.4 MCHC 33.1 32.2 PLT 81* 67* NEUTROABS 2.83 -- Recent Labs 12/14/2222112/15/22 0714 NA 133* 137 K 4.1 4.4 CL 97 104 CO2 30 27 BUN 15 13 CREATININE 1.23* 1.08* CALCIUM 8.8 8.2* MG 1.8 -- LABALBU 3.7 3.1* Recent Labs 12/14/22221 PROTIME 11.9 INR 1.1 Recent Labs 12/14/22221 TROPONINI <0.034 Recent Labs 12/14/22 0448 BEART 2.10 Recent Labs 12/15/22 0714 TBIL 0.6 ALKPHOS 72 AST 21 ALT 12 Recent Labs 12/14/22 0806 COLOR Yellow CLARITYU Clear GLUCOSEU Negative BILIRUBINUR Negative KETONES Negative LABSPEC 1.013 PHUR 6.5 PROTEINUA Negative UROBILINOGEN Normal NITRITE Negative LEUKESTER Negative WBCU 0 - 3 RBCU 3 - 10* BACTERIA None Seen LABCAST <=[address] ABDOMEN PELVIS W CONTRAST Result Date: 12/14/2022 1. No acute abnormality in the abdomen or pelvis. 2. Extensive chronic portal vein thrombosis with new involvement of the superior mesenteric vein compared to August 2022. 3. Cirrhotic configurationof the liver. 4. Splenomegaly with chronic splenic infarct, status post coil embolization. 5. Priorhysterectomy and cholecystectomy. 6. Unchanged small left adrenal nodule and right external iliac lymph node, both shown to be hypermetabolic on recent comparison PET CT. Please see that report for management recommendations. I have personally reviewed the images and the above interpretation and agree with the findings. CT ANGIO CHEST PE PROTOCOL Result Date: 12/14/2022 1. No evidence of pulmonary embolism. 2. Suspect mild hydrostatic edema on expiratory phase imaging. I have personally reviewed the images and the above interpretation and agree with the findings. XR CHEST 2 VIEWS Result Date: 12/14/2022 1. Questionable hazy opacities throughout both lungs with slight thickening of the pulmonary interstitium, possibly representing interstitial disease or very mild edema. This is similar in appearancecompared to May 2022. I have personally reviewed the images and the above interpretation and agreewith the findings. PET CT EYE TO THIGH Result Date: 12/07/2022 1. Previously noted nodule in the left lung base has resolved consistent with a benign process. 2. FDG avid mildly enlarged right external iliac lymph node which is slightly larger compared to 2015 (SUV max 14.13). This is nonspecific but the intense uptake is concerning for underlying malignancy. If biopsy is not pursued, follow-up MRI pelvis is recommended in 3 months. 3. Scattered focal metabolic activity particularly in near proximity to aforementioned abnormal lymph node is indeterminate. Further evaluation with colonoscopy is recommended. 4. Left adrenal 1.4 cm nodule indeterminate by CT criteria. It can be evaluated with dedicated MR abdomen and pelvis. 5. Cirrhosis, portal hypertension, splenomegaly with evolving infarct and chronic portal vein thrombosis. 6. Prior hysterectomy and cholecystectomy. I have personally reviewed the images and the above interpretation and agree withthe findings. US LIVER/ABDOMEN VISCERAL DOPPLER Result Date: 12/15/2022 1. Redemonstration of thrombus in the main portal vein, right portal vein, left portal vein, and superior mesenteric vein which are better assessed on recent comparison CT. Known thrombus in the splenic vein is not well assessed on this study due to shadowing from overlying bowel gas. 2. Cirrhotic configuration of the liver with no focal hepatic lesion identified. 3. Wedge-shaped region of decreased echogenicity spleen, likely sequela of splenic infarct as seen on comparison CT. I have personally reviewed the images and the above interpretation and agree with the findings. MELD Score MELD-Na score: 8 at 12/15/2022 7:14 MELD score: 8 at 12/15/2022 7:14 Calculated from: Serum Creatinine: 1.08 mg/dL at 12/15/2022 7:14 Serum Sodium: 137 mmol/L at 12/15/2022 7:14 Total Bilirubin: 0.6 mg/dL (Using min of 1 mg/dL) at 12/15/2022 7:14 INR(ratio): 1.1 Ratio at 12/14/2022 2:22 Age: 62 years EKG on my read with sinus rhythm in 70s, no acute ST changes Assessment Tara Boothe is a 62 y.o. 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 Blood pressure improved with IVF and she was transitioned off norepi and transferred to the floor. Her chronic portal vein thrombosis has extended into the superior mesenteric vein. Hematology has been consultedfor further guidance regarding this worsening. She continues to have an oxygen requirement and we will continue STILL TENDER inhalers and give her CPAP at night for HUEY. Chest x- ray did not show any PNA or signs of COPD exacerbation. Plan #Acquired protein C and S deficiency 2/2 liver disease #Chronic portal vein thrombosis with new superior mesenteric vein involvement Was previously on eliquis and therapeutic lovenox, however was discontinued due to thrombocytopeniaand GI bleed in 2020. - Ok for prophylactic dose of lovenox - Hematology consulted, appreciate recs - Increase Lovenox to 60 mg daily on 12/16 and discharge her on this dose if stable - Will follow-up outpatient with Heme #Cirrhosis secondary to QUIROZ, hx of decompensated cirrhosis with esophageal varices - Hold STILL TENDER spironolactone - Hold STILL TENDER lasix - Hold STILL TENDER lactulose - Renal diet, encourage PO intake #COPD, on 2L of home O2 overnight but not while awake - Supplemental O2 titrate to goal SpO2 >88% - Continue STILL TENDER inhaler- incruse ellipta - Duo nebs Q4H PRN - CPAP at night for HUEY - Patient just had a sleep study and is awaiting CPAP machine to be delivered to her home #Hypotension, resolved Most likely hypovolemia secondary to vomiting and poor PO intake with underlying hypotension secondary to cirrhosis. Normal lactate. - Goal MAP>65 - CTM - Hold STILL TENDER Lasix, spironolactone, lactulose due to hypovolemia #Chronic back pain - Hold STILL TENDER gabapentin - Hold STILL TENDER oxycodone - Dilaudid 1mg PO Q4H PRN for pain - Consider restarting STILL TENDER regimen tomorrow pending continued clinical improvement #Encephalopathy, appears to be resolved and back to basline - hold STILL TENDER trazodone - hold STILL TENDER gabapentin #MUSA on CKD most likely pre renal in the setting of hypovolemia - Improving. 12/13 --> 1.08 - S/p fluid resuscitation in MICU, 2.5 L LR - Avoid nephrotoxins - Daily CMP #Recent acute illness with vomiting - Zofran 4mg IV Q4H PRN #Hypothyroidism - STILL TENDER levothyroxine 25mcg - F/u TSH #GERD - STILL TENDER pantoprazole 40 mg PO BID #Chronic leukopenia #Chronic normocytic anemia #Chronic thrombocytopenia - Daily CBC #Depression/ Anxiety -Sertraline 50mg daily VTE Prophylaxis Pharmacologic Prophylaxis: Enoxaparin (Lovenox) 40 mg SQ daily Code: Full Code Discharge Plan Unclear at this time Consults Hematology Admission status Inpatient admission due to anticipated duration of hospitalization is two midnights or greater due to hypotension. Radha Fischer, MS4 Pager #[phone] -- I was present for the history taking, physical exam, and clinical decision making documented. I have edited the medical student's note as appropriate (in underline or in blue). Osiris Shaw MD 12/15/22 PGY-3 Internal Medicine [facility] tacho, Pager [phone] Cosigned by Toya Reyez MD at 12/15/2022 15:32 EST Associated attestation - Toya Reyez MD - 12/15/2022 1532 EST Attending Attestation I interviewed and examined the patient. I have personally reviewed interval events, laboratory data, and imaging. I discussed the case with the inpatient resident team. I agree with findings and planof care as documented by the resident (or have edited in blue). The resident was present with the medical student for the history, exam and medical decision making. I have personally performed my own physical exam and medical decision making. I have verified and agree with the combined medical student/resident's documentation. In brief, this is a 62 year old female with multiple comorbidities as outlined below who presented due to acute onset right-sided back pain, which has since resolved in the setting of few days of cough, vomiting and decreased oral intake without fevers which is also superimposed on many months of ongoing fatigue and constipation. She was hypotensive on arrival which prompted an overnight ICU stay. She was volume resuscitated and briefly on pressors, but now is off. Her CTA chest with without PE, did note some mosaic parenchyma with interlobular thickening which were seen on prior CTA chest inJune 2021. No focal PNA. Her CT abd/pelvis noted the extensive chronic portal vein thrombosis with new involvement of the superior mesenteric vein, a right upper quadrant US demonstrated again the thrombi. No ascites noted on either CT abd/pelvis or RUQ US. She reports feeling overall improved at this time on my examination, her main complaints now being constipation and fatigue. It seems like presentation is most consistent with a mild viral infection, not significant enough to exacerbate her COPD (no findings of such on exam today) complicated by extension of her portal vein thrombosis which is likely contributing to her abdominal pain and poor PO intake. Have consulted hematology for assistance with thrombosis management. Will hold diuretics today, but plan to likely reinitate tomorrowif BP remains stable. Takes lactulose at home for constipation 1-2 x per day, will reinitiate today, twice daily, hold for >3 loose stools her day. Will check extended viral panel for other respiratory illnesses, currently weaned to room air (home needs no oxygen during day 2L while at night awaiting home CPAP). As still a little fatigued and with resolving kidney injury, will hold home gabapen tin today and plan to resume tomorrow if mentation back to full baseline. She has a mild pancytopenia, which is overall similar to her baseline. Rest of plan and assessment as per below. Toya Reyez MD Hospitalist Physician 12/15/22 at 15:09 * Plan of Care - Christine Soto RN - 12/15/2022 0623 EST Problem: High Fall Risk: Goal: Patient Will Remain Free from Fall-Related Injury Outcome: Ongoing Problem: High Fall Risk: Goal: Patient will Remain Free of Falls due to Dizziness/Vertigo Outcome: Ongoing Problem: Daily Care Plan Goals Goal: Care Plan Documentation Outcome: Ongoing Data: Assumed care of pt at 1900. Pt resting comfortably in bed. Aox3. NC 3L (baseline). Off levo gtt. Action: Meds given per JAN. OOB to chair with SBA. Voiding in BSC. PRN dilaudid given x1 for back pain. Mag given x1 for leg cramps. Response: Aox3. NC 3L. Maintaining MAP >65 without levophed. Resting comfortably in chair. CHRISTINE SOTO RN 12/15/2022 6:24 * Plan of Care - Heike Pitts RN - 12/14/2022 1435 EST Problem: High Fall Risk: Goal: Patient will Remain Free of Falls due to Altered Elimination Outcome: Ongoing Problem: High Fall Risk: Goal: Patient will Remain Free of Falls due to Dizziness/Vertigo Outcome: Ongoing Problem: Daily Care Plan Goals Goal: Care Plan Documentation Outcome: Ongoing Flowsheets (Taken 12/14/2022 1200) Area of Focus: Circulatory Status Goal This Shift: wean pressors as tolerated Data: Patient admitted earlier to day from ED, Arrived with levophed infusing. Patient A&O x3. Action: Assessment done, CHG bath done. Patient repositioned. 1425: Dangle to side of bed. Requesting pain medication for back pain. Response: VSS, levophed remains @ 5mcg/min. O2 sats stable. Awaiting order for pain meds. Tolerating activity. HEIKE PITTS RN 12/14/2022 14:36 documented in this encounter Plan of Treatment Upcoming Encounters Date Type Department Care Team (Late st Contact Info) Description 01/04/2025 13:00 EST Office Visit [facility] Ophthalmology - [address] [phone] Gagandeep Rome MD [address] [place] [address], [facility] [address] [place] [address] 02/11/2025 13:30 EDT Telemedicine [facility] Hematology & Oncology [address] [address] Dana Padilla MD [address] [place] [address], [facility] [address] [place] [address] Scheduled Referrals Name Type Priority Associated Diagnoses Order Schedule AMB CONS/FOLLOW UP HEMATOLOGY Outpatient Referral Routine/Next Available Portal vein thrombosis Expected: 12/22/2022 (Approximate), Expires: 12/15/2023 documented as of this encounter Procedures Procedure Name Priority Date/Time Associated Diagnosis Comments ECG REPORT - SCANNED 12/22/2022 8:05 EST COMPLETE BLOOD COUNT Discharge 12/18/2022 8:07 EST MAGNESIUM Discharge 12/18/2022 8:07 EST COMPREHENSIVE METABOLIC PANEL (CMP) Discharge 12/18/2022 8:07 EST COMPLETE BLOOD COUNT Routine 12/17/2022 12:24 EST MAGNESIUM Routine 12/17/2022 12:24 EST COMPREHENSIVE METABOLIC PANEL (CMP) Routine 12/17/2022 12:24 EST XR FOOT RIGHT 1-2 VIEWS Routine 12/17/2022 10:30 EST XR CHEST 1 VIEW STAT 12/17/2022 10:30 EST COMPLETE BLOOD COUNT Routine 12/16/2022 3:36 EST MAGNESIUM Routine 12/16/2022 3:36 EST COMPREHENSIVE METABOLIC PANEL (CMP) Routine 12/16/2022 3:36 EST EXPANDED RESPIRATORY VIRAL PANEL, PCR (DOES NOT INCLUDE INFLUENZA OR RSV) Routine 12/15/2022 16:05 EST FIBRINOGEN Routine 12/15/2022 14:24 EST ECG REPORT - SCANNED 12/15/2022 14:22 EST COMPLETE BLOOD COUNT Routine 12/15/2022 7:14 EST MAGNESIUM Add-On 12/15/2022 7:14 EST COMPREHENSIVE METABOLIC PANEL (CMP) Routine 12/15/2022 7:14 EST US LIVER/ABDOMEN VISCERAL DUPLEX STAT 12/14/2022 18:08 EST MRSA PCR Routine 12/14/2022 14:24 EST POCT US ED CARDIAC 12/14/2022 8: 34 EST ZZCOVID-19 TEST [facility] PCR STAT 12/14/2022 8:06 EST COVID-19 TESTING STAT 12/14/2022 8:06 EST URINE CHEMICAL (DIP) & SEDIMENT (MICRO) WITH REFLEX TO CULTURE STAT 12/14/2022 8:06 EST ZZHN INFLUENZA A AND B, RSV PCR STAT 12/14/2022 8:06 EST BACTERIAL CULTURE, BLOOD Routine 12/14/2022 8:06 EST BACTERIAL CULTURE, BLOOD Routine 12/14/2022 8:06 EST NT PRO BNP STAT Add-on 12/14/2022 8:06 EST AMMONIA STAT 12/14/2022 8:[address] ANGIO CHEST PE PROTOCOL STAT 12/14/2022 6:[address] ABDOMEN PELVIS W CONTRAST STAT 12/14/2022 6:13 EST LACTIC ACID Routine 12/14/2022 5:15 EST XR CHEST 2 VIEWS STAT 12/14/2022 5:02 EST POCT US ED GUIDANCE PIV 12/14/2022 4:53 EST BLOOD GASES, VENOUS STAT 12/14/2022 4 :48 EST EKG 12-LEAD STAT 12/14/2022 3:25 EST HOLD SST STAT 12/14/2022 2:22 EST HOLD LAVENDER TOP STAT 12/14/2022 2:2 2 EST HOLD GREEN TOP STAT 12/14/2022 2:22 EST HOLD BLUE TOP STAT 12/14/2022 2:22 EST EXTRA BLOOD DRAW (RAINBOW) STAT 12/14/2022 2:22 EST TROPONIN I STAT Add-on 12/14/2022 2:22 EST PROTIME STAT Add-on 12/14/2022 2:22 EST D-DIMER STAT Add-on 12/14/2022 2:22 EST COMPLETE BLOOD COUNT AND DIFFERENTIAL STAT Add-on 12/14/2022 2:22 EST TSH STAT Add-on 12/14/2022 2:22 EST MAGNESIUM STAT Add-on 12/14/2022 2:22 EST CORTISOL STAT Add-on 12/14/2022 2:22 EST HEPATIC FUNCTION PANEL (ALB,ALK PHOS,ALT,AST,DBIL,TOT NYA,TOT PROT) STAT Add-on 12/14/2022 2:22 EST BASIC METABOLIC PANEL (BMP) STAT Add-on 12/14/2022 2:22 EST documented in this encounter Results * ECG REPORT - SCANNED (12/22/2022 8:05 EST) 12/22/2022 8:05 EST us Scan 2 Loom Repairer PROCEDURE/MINOR SURGICAL OR DERABLES Final Result * MAGNESIUM (12/18/2022 8:07 EST) Magnesium 1.9 1.7 - 2.8 mg/dL 12/18/2022 8:54 EST [facility] Blood VENOUS BLOOD / Unknown Venipuncture / Unknown 12/18/2022 8:07 EST 12/18/2022 8:12 EST us Toya Reyez MD CHEMISTRY & BLOOD GAS ORDERAB LES Final Result [facility] [address] [place] [address] * (ABNORMAL) COMPLETE BLOOD COUNT (12/18/2022 8:07 EST) WBC 2.98(L) 4.00 - 12.40 K/cmm 12/18/2022 8:22 [facility] RBC 3.89 3.86 - 5.04 M/cmm 12/18/2022 8:22 [facility] Hemoglobin 11.4(L) 11.6 - 15.2 gm/dL 12/18/2022 8:22 [facility] HCT 35.3 34.9 - 44.4 % 12/18/2022 8:22 [facility] MCV 91 81 - 98 fl 12/18/2022 8:22 [facility] MCH 29.3 26.7 - 33.3 pg 12/18/2022 8:22 [facility] MCHC 32.3 32.1 - 35.9 gm/dL 12/18/2022 8:22 [facility] RDW-CV 14.8(H) <14.7 % 12/18/2022 8:22 [facility] RDW-SD 48.8 <50.4 fl 12/18/2022 8:22 [facility] PLT 72(L) 141 - 377 K/cmm 12/18/2022 8:22 [facility] MPV 9.7 9.5 - 12.7 fl 12/18/2022 8:22 [facility] Blood VENOUS BLOOD / Unknown Venipuncture / Unknown 12/18/2022 8:07 EST 12/18/2022 8:12 EST Toya Reyez MD HEMATOLOGY & PF4 ORDERABLES F inal Result [facility] [address] [place] [address] * COMPREHENSIVE METABOLIC PANEL (CMP) (12/18/2022 8:07 EST) Sodium 137 136 - 145 mmol/L 12/18/2022 8:54 [facility] Potassium 4.3 3.5 - 5.0 mmol/L 12/18/2022 8:54 [facility] Chloride 101 96 - 110 mmol/L 12/18/2022 8:54 [facility] CO2 Total 28 22 - 32 mmol/L 12/18/2022 8:54 [facility] Glucose 86 70 - 100 mg/dL 12/18/2022 8:54 [facility] BUN 16 10 - 26 mg/dL 12/18/2022 8:54 [facility] Creatinine 0.97 0.52 - 1.04 mg/dL 12/18/2022 8:54 [facility] eGFR 66 >60 mL/min/1.7 3m2 12/18/2022 8:54 [facility] Total Protein 6.5 6.3 - 8.2 g/dL 12/18/2022 8:54 [facility] Albumin 3.7 3.4 - 4.9 g/dL 12/18/2022 8:54 [facility] Alkaline Phosphatase 82 38 - 126 U/L 12/18/2022 8:54 [facility] AST 24 15 - 46 U/L 12/18/2022 8:54 [facility] ALT 13 <35 U/L 12/18/2022 8:54 [facility] Bilirubin, Total 0.8 <1.4 mg/dL 12/18/19 8:54 [facility] Calcium 8.6 8.5 - 10.5 mg/dL 12/18/2022 8:54 [facility] Albumin/Globulin Ratio 1.3 1.0 - 2.5 12/18/2022 8:54 [facility] Anion Gap 8 5 - 14 12/18/2022 8:54 [facility] Blood VENOUS BLOOD / Unknown Venipuncture / Unknown 12/18/2022 8:07 EST 12/18/2022 8:12 EST us Toya Reyez MD CHEMISTRY & BLOOD GAS ORDERAB LES Final Result [facility] [address] [place] [address] * (ABNORMAL) MAGNESIUM (12/17/2022 12:24 EST) Magnesium 1.6(L) 1.7 - 2.8 mg/dL 12/17/2022 13:55 [facility] Blood VENOUS BLOOD / Unknown Venipuncture / Unknown 12/17/2022 12:24 EST 12/17/2022 13:26 EST Osiris Shaw MD CHEMISTRY & BLOOD GAS ORDERABL ES Final Result [facility] [address] [place] [address] * COMPREHENSIVE METABOLIC PANEL (CMP) (12/17/2022 12:24 EST) Sodium 137 136 - 145 mmol/L 12/17/2022 13:55 [facility] Potassium 4.2 3.5 - 5.0 mmol/L 12/17/2022 13:55 [facility] Chloride 99 96 - 110 mmol/L 12/17/2022 13:55 [facility] CO2 Total 27 22 - 32 mmol/L 12/17/2022 13:55 [facility] Glucose 87 70 - 100 mg/dL 12/17/2022 13:55 [facility] BUN 13 10 - 26 mg/dL 12/17/2022 13:55 [facility] Creatinine 0.97 0.52 - 1.04 mg/dL 12/17/2022 13:55 [facility] eGFR 66 >60 mL/min/1.7 3m2 12/17/2022 13:55 [facility] Total Protein 6.5 6.3 - 8.2 g/dL 12/17/2022 13:55 [facility] Albumin 3.6 3.4 - 4.9 g/dL 12/17/2022 13:55 [facility] Alkaline Phosphatase 97 38 - 126 U/L 12/17/2022 13:55 [facility] AST 23 15 - 46 U/L 12/17/2022 13:55 [facility] ALT 14 <35 U/L 12/17/2022 13:55 [facility] Bilirubin, Total 0.7 <1.4 mg/dL 12/17/19 13:55 [facility] Calcium 8.8 8.5 - 10.5 mg/dL 12/17/2022 13:55 [facility] Albumin/Globulin Ratio 1.2 1.0 - 2.5 12/17/2022 13:55 [facility] Anion Gap 11 5 - 14 12/17/2022 13:55 [facility] Blood VENOUS BLOOD / Unknown Venipuncture / Unknown 12/17/2022 12:24 EST 12/17/2022 13:26 EST Hi Gaspar MD CHEMISTRY & BLOOD GAS ORDERABLES Final Result Performing Organization Address City/State/[facility] [[email or web address] Co de Phone Number [facility] [address] [place] [address] * (ABNORMAL) COMPLETE BLOOD COUNT (12/17/2022 12:24 EST) WBC 4.10 4.00 - 12.40 K/cmm 12/17/2022 13:20 [facility] RBC 4.02 3.86 - 5.04 M/cmm 12/17/2022 13:20 [facility] Hemoglobin 11.6 11.6 - 15.2 gm/dL 12/17/2022 13:20 [facility] HCT 35.9 34.9 - 44.4 % 12/17/2022 13:20 [facility] MCV 89 81 - 98 fl 12/17/2022 13:20 [facility] MCH 28.9 26.7 - 33.3 pg 12/17/2022 13:20 [facility] MCHC 32.3 32.1 - 35.9 gm/dL 12/17/2022 13:20 [facility] RDW-CV 14.8(H) <14.7 % 12/17/2022 13:20 [facility] RDW-SD 48.9 <50.4 fl 12/17/2022 13:20 EST [facility] PLT 82(L) 141 - 377 K/cmm 12/17/2022 13:20 EST [facility] MPV 10.8 9.5 - 12.7 fl 12/17/2022 13:20 EST [facility] Blood VENOUS BLOOD / Unknown Venipuncture / Unknown 12/17/2022 12:24 EST 12/17/2022 13:13 EST us Hi Gaspar MD HEMATOLOGY & PF4 ORDERABLES Pricila l Result [facility] [address] [place] [address] * XR CHEST 1 VIEW (12/17/2022 10:30 EST) Anatomical Region Laterality Modality Computed Radiogr aphy 12/17/2022 10:4 6 EST Impressions 12/17/2022 10:46 EST * ??Multifocal patchy opacities concerning for pneumonia. * ??Background of interstitial pulmonary edema. Narrative 12/17/2022 10:46 EST XR CHEST 1 VIEW ??12/17/2022 9:55 AM CLINICAL HISTORY/COMMENTS: SOB, wheezy COMPARISON: Chest radiograph December 14, 2022. CTPA December 14, 2022. TECHNIQUE: Single frontal view of the chest. FINDINGS: Soft tissues and extrathoracic findings: ??Embolization clips project over the left upper abdominal quadrant. Bones: Normal for age. ?? Cardiac and mediastinal contours: Unchanged enlargement of the cardiac silhouette. Lungs: Indistinct lung markings. Patchy opacities in the right lower and left mid lung zones. Peribronchial cuffing is also noted. ?? Pleura/diaphragms: Normal. Procedure Note Alverto Miranda MD - 12/17/2022 XR CHEST 1 VIEW 12/17/2022 9:55 AM CLINICAL HISTORY/COMMENTS: SOB, wheezy COMPARISON: Chest radiograph December 14, 2022. CTPA December 14, 2022. TECHNIQUE: Single frontal view of the chest. FINDINGS: Soft tissues and extrathoracic findings: Embolization clips project overthe left upper abdominal quadrant. Bones: Normal for age. Cardiac and mediastinal contours: Unchanged enlargement of the cardiacsilhouette. Lungs: Indistinct lung markings. Patchy opacities in the right lower andleft mid lung zones. Peribronchial cuffing is also noted. Pleura/diaphragms: Normal. IMPRESSION * Multifocal patchy opacities concerning for pneumonia. * Background of interstitial pulmonary edema. Osiris Shaw MD IM DIAGNOSTIC IMAGING ORDERAB LES Final Result * XR FOOT RIGHT 1-2 VIEWS (12/17/2022 10:30 EST) Anatomical Region Laterality Modality Lower Extremities Right Computed Radio graphy 12/17/2022 12:0 7 EST Impressions 12/17/2022 12:07 EST FINDINGS / IMPRESSION: Right foot 2 nonweightbearing views: There is moderate to severe osteoarthrosis involving the Lisfranc joints and navicular-cuneiform joints. Also, with suggestion of a chronic appearing and minimal in size osseous fragment along the dorsal aspect of the navicular-cuneiform articulation, likely sequela from remote injury. There is severe osteoarthrosis in the first MTP joint and milder degenerative changes throughout the remainder the foot and toes. Plantar and posterior calcaneal enthesopathic spur formation is noted. There is mild diffuse soft tissue swelling throughout the foot. An os peroneum and type I accessory navicular bone are noted. No evidence for dislocation or acute fracture in a setting of osteopenia. If there is concern for a radiographically occult fracture and in particular if the patient has persistent pain recommend repeat radiographs in about 10 days to further evaluate for this possibility. Narrative 12/17/2022 12:07 EST EXAM/TECHNIQUE: 12/17/2022 9:55 AM ??XR FOOT RIGHT 1-2 VIEWS 2 views ?? 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 Also, with suggestion of a chronic appearing and minimal in sizeosseous fragment along the dorsal aspect of the navicular-cuneiformarticulation, likely sequela from remote injury. There is severeosteoarthrosis in the first MTP joint and milder degenerative changesthroughout the remainder the foot and toes. Plantar and posteriorcalcaneal enthesopathic spur formation is noted. There is mild diffusesoft tissue swelling throughout the foot. An os peroneum and type Iaccessory navicular bone are noted. No evidence for dislocation or acutefracture in a setting of osteopenia. If there is concern for aradiographically occult fracture and in particular if the patient haspersistent pain recommend repeat radiographs in about 10 days to furtherevaluate for this possibility. Osiris Shaw MD IMG DIAGNOSTIC IMAGING ORDERAB LES Final Result * MAGNESIUM (12/16/2022 3:36 EST) Magnesium 1.8 1.7 - 2.8 mg/dL 12/16/2022 4:34 EST [facility] Blood VENOUS BLOOD / Unknown Venipuncture / Unknown 12/16/2022 3:36 EST 12/16/2022 4:09 EST Osiris Shaw MD CHEMISTRY & BLOOD GAS ORDERABL ES Final Result [facility] [address] [place] [address] * (ABNORMAL) COMPREHENSIVE METABOLIC PANEL (CMP) (12/16/2022 3:36 EST) Sodium 136 136 - 145 mmol/L 12/16/2022 4:34 [facility] Potassium 4.4 3.5 - 5.0 mmol/L 12/16/2022 4:34 [facility] Chloride 102 96 - 110 mmol/L 12/16/2022 4:34 [facility] CO2 Total 25 22 - 32 mmol/L 12/16/2022 4:34 [facility] Glucose 116(H) 70 - 100 mg/dL 12/16/2022 4:34 [facility] BUN 14 10 - 26 mg/dL 12/16/2022 4:34 [facility] Creatinine 1.00 0.52 - 1.04 mg/dL 12/16/2022 4:34 [facility] eGFR 64 >60 mL/min/1.7 3m2 12/16/2022 4:34 [facility] Total Protein 5.9(L) 6.3 - 8.2 g/dL 12/16/2022 4:34 [facility] Albumin 3.0(L) 3.4 - 4.9 g/dL 12/16/2022 4:34 [facility] Alkaline Phosphatase 94 38 - 126 U/L 12/16/2022 4:34 [facility] AST 21 15 - 46 U/L 12/16/2022 4:34 [facility] ALT 12 <35 U/L 12/16/2022 4:34 [facility] Bilirubin, Total 0.6 <1.4 mg/dL 12/16/19 4:34 [facility] Calcium 8.4(L) 8.5 - 10.5 mg/dL 12/16/2022 4:34 [facility] Albumin/Globulin Ratio 1.0 1.0 - 2.5 12/16/2022 4:34 [facility] Anion Gap 9 5 - 14 12/16/2022 4:34 [facility] Blood VENOUS BLOOD / Unknown Venipuncture / Unknown 12/16/2022 3:36 EST 12/16/2022 4:09 EST us Hi Gaspar MD CHEMISTRY & BLOOD GAS ORDERABLES Final Result [facility] [address] [place] [address] * (ABNORMAL) COMPLETE BLOOD COUNT (12/16/2022 3:36 EST) WBC 3.31(L) 4.00 - 12.40 K/cmm 12/16/2022 4:17 [facility] RBC 3.74(L) 3.86 - 5.04 M/cmm 12/16/2022 4:17 [facility] Hemoglobin 10.8(L) 11.6 - 15.2 gm/dL 12/16/2022 4:17 [facility] HCT 33.6(L) 34.9 - 44.4 % 12/16/2022 4:17 [facility] MCV 90 81 - 98 fl 12/16/2022 4:17 [facility] MCH 28.9 26.7 - 33.3 pg 12/16/2022 4:17 [facility] MCHC 32.1 32.1 - 35.9 gm/dL 12/16/2022 4:17 [facility] RDW-CV 14.8(H) <14.7 % 12/16/2022 4:17 [facility] RDW-SD 48.9 <50.4 fl 12/16/2022 4:17 [facility] PLT 71(L) 141 - 377 K/cmm 12/16/2022 4:17 [facility] MPV 10.3 9.5 - 12.7 fl 12/16/2022 4:17 [facility] Blood VENOUS BLOOD / Unknown Venipuncture / Unknown 12/16/2022 3:36 EST 12/16/2022 4:09 EST us Hi Gaspar MD HEMATOLOGY & PF4 ORDERABLES Pricila l Result [facility] [address] [place] [address] * EXPANDED RESPIRATORY VIRAL PANEL, PCR (DOES NOT INCLUDE INFLUENZA OR RSV) (12/15/2022 16:05 EST) Paraflu Type 1 Rslt (PF1RES) Negative Negative 12/16/2022 7:04 [facility] Paraflu Type 2 Rslt (PF2RES) Negative Negative 12/16/2022 7:04 [facility] Paraflu Type 3 Rslt (PF3RES) Negative Negative 12/16/2022 7:04 [facility] Paraflu Type 4 Rslt Negative Negative 12/16 7:04 [facility] Rhinovirus RNA Rslt (RVRES) Negative Negative 12/16/2022 7:04 [facility] Metapneumovirus RNA Rslt (HMVRES) Negative Negative 12/16/2022 7:04 [facility] Adenovirus DNA Rslt (ADVRES) Negative Negative 12/16/2022 7:04 [facility] Swab NASAL / Unknown Swab / Unknown 12/15/2022 16:05 EST 12/15/2022 17:11 EST us Toya Reyez MD MICROBIOLOGY - GENERAL ORDERA BLES Final Result Performing Organization Address City/[facility]/ZIP Co de Phone Number [facility] [address] [place] [address] * FIBRINOGEN (12/15/2022 14:24 EST) Fibrinogen 211 171 - 384 mg/dL 12/15/2022 15:43 EST [facility] Blood VENOUS BLOOD / Unknown Venipuncture / Unknown 12/15/2022 14:24 EST 12/15/2022 14:39 EST us Amilcar Ramesh MD HEMATOLOGY & PF4 ORDERABLES Pricila l Result Performing Organization Address City/[facility]/ZIP Co de Phone Number [facility] [address] [place] [address] * ECG REPORT - SCANNED (12/15/2022 14:22 EST) 12/15/2022 14:2 2 EST us Scan 2 Loom Repairer PROCEDURE/MINOR SURGICAL OR DERABLES Final Result * MAGNESIUM (12/15/2022 7:14 EST) Magnesium 1.8 1.7 - 2.8 mg/dL 12/15/2022 11:16 [facility] Blood VENOUS BLOOD / Unknown Venipuncture / Unknown 12/15/2022 7:14 EST 12/15/2022 7:23 EST us Osiris Shaw MD CHEMISTRY & BLOOD GAS ORDERABL ES Final Result [facility] [address] [place] [address] * (ABNORMAL) COMPREHENSIVE METABOLIC PANEL (CMP) (12/15/2022 7:14 EST) Sodium 137 136 - 145 mmol/L 12/15/2022 8:10 [facility] Potassium 4.4 3.5 - 5.0 mmol/L 12/15/2022 8:10 [facility] Chloride 104 96 - 110 mmol/L 12/15/2022 8:10 [facility] CO2 Total 27 22 - 32 mmol/L 12/15/2022 8:10 [facility] Glucose 115(H) 70 - 100 mg/dL 12/15/2022 8:10 [facility] BUN 13 10 - 26 mg/dL 12/15/2022 8:10 [facility] Creatinine 1.08(H) 0.52 - 1.04 mg/dL 12/15/2022 8:10 [facility] eGFR 58(L) >60 mL/min/1.7 3m2 12/15/2022 8:10 [facility] Total Protein 5.8(L) 6.3 - 8.2 g/dL 12/15/2022 8:10 [facility] Albumin 3.1(L) 3.4 - 4.9 g/dL 12/15/2022 8:10 [facility] Alkaline Phosphatase 72 38 - 126 U/L 12/15/2022 8:10 [facility] AST 21 15 - 46 U/L 12/15/2022 8:10 [facility] ALT 12 <35 U/L 12/15/2022 8:10 [facility] Bilirubin, Total 0.6 <1.4 mg/dL 12/15/19 8:10 [facility] Calcium 8.2(L) 8.5 - 10.5 mg/dL 12/15/2022 8:10 [facility] Albumin/Globulin Ratio 1.1 1.0 - 2.5 12/15/2022 8:10 [facility] Anion Gap 6 5 - 14 12/15/2022 8:10 [facility] Blood VENOUS BLOOD / Unknown Venipuncture / Unknown 12/15/2022 7:14 EST 12/15/2022 7:23 EST Hi Gaspar MD CHEMISTRY & BLOOD GAS ORDERABLES Final Result Performing Organization Address City/State/[facility] [[email or web address]] Co de Phone Number [facility] [address] [place] [address] * (ABNORMAL) COMPLETE BLOOD COUNT (12/15/2022 7:14 EST) WBC 3.14(L) 4.00 - 12.40 K/cmm 12/15/2022 7:24 [facility] RBC 3.71(L) 3.86 - 5.04 M/cmm 12/15/2022 7:24 [facility] Hemoglobin 10.9(L) 11.6 - 15.2 gm/dL 12/15/2022 7:24 [facility] HCT 33.8(L) 34.9 - 44.4 % 12/15/2022 7:24 [facility] MCV 91 81 - 98 fl 12/15/2022 7:24 [facility] MCH 29.4 26.7 - 33.3 pg 12/15/2022 7:24 [facility] MCHC 32.2 32.1 - 35.9 gm/dL 12/15/2022 7:24 [facility] RDW-CV 15.1(H) <14.7 % 12/15/2022 7:24 [facility] RDW-SD 50.4(H) <50.4 fl 12/15/2022 7:24 EST [facility] PLT 67(L) 141 - 377 K/cmm 12/15/2022 7:24 EST [facility] MPV 10.0 9.5 - 12.7 fl 12/15/2022 7:24 EST [facility] Blood VENOUS BLOOD / Unknown Venipuncture / Unknown 12/15/2022 7:14 EST 12/15/2022 7:18 EST us Hi Gaspar MD HEMATOLOGY & PF4 ORDERABLES Pricila l Result [facility] [address] [place] [address] * US ABDOMEN LIMITED WITH COMPLETE DUPLEX (12/14/2022 18:08 EST) Anatomical Region Laterality Modality Abdomen Ultrasound 12/15/2022 8:29 EST Impressions 12/15/2022 8:29 EST 1. ??Redemonstration of thrombus in the main portal vein, right portal vein, left portal vein, and superior mesenteric vein which are better assessed on recent comparison CT. Known thrombus in the splenic vein is not well assessed on this study due to shadowing from overlying bowel gas. 2. ??Cirrhotic configuration of the liver with no focal hepatic lesion identified. 3. ??Wedge-shaped region of decreased echogenicity spleen, likely sequela of splenic infarct as seen on comparison CT. I have personally reviewed the images and the above interpretation and agree with the findings. Narrative 12/15/2022 8:29 EST US ABDOMEN LIMITED WITH COMPLETE DOPPLER ??12/14/2022 1:00 PM SIGNS AND SYMPTOMS/COMMENTS: portal vein thrombosis w/ new involvement superior mesenteric vein on CT COMPARISON: Same day CT abdomen pelvis, liver Doppler ultrasound 05/07/2022 TECHNIQUE: Grayscale, cine, color Doppler, and spectral tracing images of the liver were performed. Ultrasound evaluation of biliary tree, spleen, and four quadrants of the abdomen was also performed. FINDINGS: LIVER: The liver measures 15.9 cm, which is normal. Heterogenous echotexture of the hepatic parenchyma with nodular contour compatible with known history of cirrhosis. No focal hepatic lesion. GALLBLADDER: Gallbladder is surgically absent. BILE DUCTS: The common duct is not well assessed due to shadowing from overlying bowel gas. Mild intrahepatic and extrahepatic biliary ductal dilatation is better assessed on recent comparison CT, likely related to postcholecystectomy state. SPLEEN: The spleen measures 13.5 cm, which is normal. Large hypoechogenic wedge shaped area in the spleen from prior splenic infarct is redemonstrated, better assessed on recent comparison CT. FREE FLUID: None.. PARAUMBILICAL VEIN: Recanalized paraumbilical vein is not identified. DOPPLER EVALUATION: Doppler evaluation of the following vessels was performed: Main Portal Vein: 20 cm/s. Direction of flow is normal. Main portal vein is enlarged and there is eccentric filling defect identified within the main portal vein, better assessed on recent comparison CT. Main Portal Vein Diameter: Tidal Respiration: 2.7 cm, Deep Inspiration: Not assessed due to patient tolerance. Right Portal Vein: 20.1 cm/s. Direction of flow is normal. Nonocclusive thrombus in the right portal vein is also better assessed on recent comparison CT. Left Portal Vein: 18.7 cm/s. Direction of flow is normal. Nonocclusive thrombus in the left portal vein MR better assessed on recent comparison CT. Right Hepatic Vein: Waveform is normal. Middle Hepatic Vein: Waveform is slightly diminutive. Left Hepatic Vein: Waveform is normal. Splenic Vein at Hilum: Not visualized. Splenic Vein at Pancreas: Not visualized. Superior Mesenteric Vein: Thrombus in the superior mesenteric vein measuring up to 2.7 cm in diameter, no visible flow on color Doppler. Inferior Vena Cava: Waveform is normal. Hepatic Artery: Peak systolic velocity: 148 cm/s. Resistive Index: 0.75. Procedure Note Prasanna Rey MD - 12/15/2022 US ABDOMEN LIMITED WITH COMPLETE DOPPLER 12/14/2022 1:00 PM SIGNS AND SYMPTOMS/COMMENTS: portal vein thrombosis w/ new involvementsuperior mesenteric vein on CT COMPARISON: Same day CT abdomen pelvis, liver Doppler ultrasound05/07/2022 TECHNIQUE: Grayscale, cine, color Doppler, and spectral tracing images ofthe liver were performed. Ultrasound evaluation of biliary tree, spleen,and four quadrants of the abdomen was also performed. FINDINGS: LIVER: The liver measures 15.9 cm, which is normal. Heterogenousechotexture of the hepatic parenchyma with nodular contour compatible withknown history of cirrhosis. No focal hepatic lesion. GALLBLADDER: Gallbladder is surgically absent. BILE DUCTS: The common duct is not well assessed due to shadowing fromoverlying bowel gas. Mild intrahepatic and extrahepatic biliary ductaldilatation is better assessed on recent comparison CT, likely related topostcholecystectomy state. SPLEEN: The spleen measures 13.5 cm, which is normal. Large hypoechogenicwedge shaped area in the spleen from prior splenic infarct isredemonstrated, better assessed on recent comparison CT. FREE FLUID: None.. PARAUMBILICAL VEIN: Recanalized paraumbilical vein is not identified. DOPPLER EVALUATION: Doppler evaluation of the following vessels was performed: Main Portal Vein: 20 cm/s. Direction of flow is normal. Main portal veinis enlarged and there is eccentric filling defect identified within themain portal vein, better assessed on recent comparison CT. Main Portal Vein Diameter: Tidal Respiration: 2.7 cm, Deep Inspiration:Not assessed due to patient tolerance. Right Portal Vein: 20.1 cm/s. Direction of flow is normal. Nonocclusivethrombus in the right portal vein is also better assessed on recentcomparison CT. Left Portal Vein: 18.7 cm/s. Direction of flow is normal. Nonocclusivethrombus in the left portal vein MR better assessed on recent comparisonCT. Right Hepatic Vein: Waveform is normal. Middle Hepatic Vein: Waveform is slightly diminutive. Left Hepatic Vein: Waveform is normal. Splenic Vein at Hilum: Not visualized. Splenic Vein at Pancreas: Not visualized. Superior Mesenteric Vein: Thrombus in the superior mesenteric veinmeasuring up to 2.7 cm in diameter, no visible flow on color Doppler. Inferior Vena Cava: Waveform is normal. Hepatic Artery: Peak systolic velocity: 148 cm/s. Resistive Index: 0.75. IMPRESSION 1. Redemonstration of thrombus in the main portal vein, right portalvein, left portal vein, and superior mesenteric vein which are betterassessed on recent comparison CT. Known thrombus in the splenic vein isnot well assessed on this study due to shadowing from overlying bowelgas. 2. Cirrhotic configuration of the liver with no focal hepatic lesionidentified. 3. Wedge-shaped region of decreased echogenicity spleen, likely sequelaof splenic infarct as seen on comparison CT. I have personally reviewed the images and the above interpretation andagree with the findings. Hi Gaspar MD IMG US ORDERABLES Final Result * MRSA PCR (12/14/2022 14:24 EST) MRSA/Staph aureus Result No Staphylococcus aureus detected by PCR 12/14/2022 20:59 EST [facility] Swab ENTIRE NARIS / Unknown Swab / Unknown 12/14/2022 14:24 EST 12/14/2022 14:49 EST Hi Gaspar MD MICROBIOLOGY - GENERAL ORDERABLE S Final Result Performing Organization Address City/State/[facility] [[email or web address]] Co de Phone Number [facility] [address] [place] [address] * POCT ED CARDIAC (12/14/2022 8:34 EST) Anatomical Region Laterality Modality Other 12/14/2022 8:34 EST Narrative 12/26/2022 22:55 EST Study Date and Time: 2022-12-14 08:34 Study Author: Alfred Mauricio EDR ED Cardiac - TTE: Indication(s) for Exam: ?The exam was performed with the following indications:: Hypotension ?Other indications(s):: N/A Views Obtained & Images Saved for these Views: ?The pericardial sac, myocardium, 4 chambers, and IVC were identified using the following views:: Parasternal Long Aurora (PLAX), Parasternal Short Aurora (PSAX) ?Other views obtained: N/A ?Pleural space was evaluated with the following views: N/A Findings: ?Pericardial effusion: None ?Other pericardial finidfindings:: N/A ?Cardiac Activity: Normal ?Other Cardiac Activity:: N/A ?LV Function: Normal ( > 50% LVEF) ?Other LV Function findings:: N/A ?RV Diameter: Normal ?Other RV findings: N/A ?Signs of RV Strain: None ?Other cardiac findings: N/A ?IVC collapsibility: N/A ?Other IVC Findings: N/A ?Pulmonary Findings: N/A ?Other Pulmonary findings: N/A Interpretation: ?Cardiac Interpretation: Normal Cardiac Activity, Normal Cardiac Function ?Other cardiac: N/A ?Pulmonary Interpretation: N/A ?Other pulmonary: N/A Confirmatory Findings: ?What confirmatory study was performed during ED patient evaluation?: X-Ray ?Confirmatory study findings/comments:: N/A Signed by Alfred VARGAS on 2022-12-14 08:51 Physician Attestation: I reviewed and independently interpreted these images. ??I was present for the brown and critical portions of the ultrasound imaging and agree with or have edited the findings as documented. Final Signature by Jayden Bustamante on 2022-12-26 22:55 Procedure Note Jayden Brown MD - 12/26/2022 Study Date and Time: 2022-12-14 08:34 Study Author: Alfred VARGAS ED Cardiac - TTE: Indication(s) for Exam: The exam was performed with the following indications:: Hypotension Other indications(s):: N/A Views Obtained & Images Saved for these Views: The pericardial sac, myocardium, 4 chambers, and IVC were identifiedusing the following views:: Parasternal Long Aurora (PLAX), ParasternalShort Aurora (PSAX) Other views obtained: N/A Pleural space was evaluated with the following views: N/A Findings: Pericardial effusion: None Other pericardial finidfindings:: N/A Cardiac Activity: Normal Other Cardiac Activity:: N/A LV Function: Normal ( > 50% LVEF) Other LV Function findings:: N/A RV Diameter: Normal Other RV findings: N/A Signs of RV Strain: None Other cardiac findings: N/A IVC collapsibility: N/A Other IVC Findings: N/A Pulmonary Findings: N/A Other Pulmonary findings: N/A Interpretation: Cardiac Interpretation: Normal Cardiac Activity, Normal CardiacFunction Other cardiac: N/A Pulmonary Interpretation: N/A Other pulmonary: N/A Confirmatory Findings: What confirmatory study was performed during ED patient evaluation?:X-Ray Confirmatory study findings/comments:: N/A Signed by Alfred Mauricio EDR on 2022-12-14 08:51 Physician Attestation: I reviewed and independently interpreted theseimages. I was present for the brown and critical portions of the ultrasoundimaging and agree with or have edited the findings as documented. Final Signature by Jayden Brown on 2022-12-26 22:55 us Alfred Mauricio MD IMG POCT US ORDERABLES Final Res ult * NT PRO BNP (12/14/2022 8:06 EST) NT-pro BNP 90 <125 pg/mL 12/14/2022 15:39 EST [facility] Comment:The results of this assay can be falsely lowered due to consumption of Biotin. Blood VENOUS BLOOD / Unknown Venipuncture / Unknown 12/14/2022 8:06 EST 12/14/2022 8:16 EST us Hi Gaspar MD CHEMISTRY & BLOOD GAS ORDERABLES Final Result Performing Organization Address [facility]/ZIP Co de Phone Number [facility] [address] [place] [address] * COVID-19 TEST [facility] PCR (12/14/2022 8:06 EST) Swab ENTIRE NASOPHARYNX / Unknown Swab / Unknown 12/14/2022 8:06 EST 12/14/2022 8:16 EST us Zully Cook MD MICROBIOLOGY - GENERAL ORDDoug CARDENAS Final Result [facility] [address] [place] [address] * (ABNORMAL) URINE CHEMICAL (DIP) & SEDIMENT (MICRO) WITH REFLEX TO CULTURE (12/14/2022 8:06 EST) Color UA Yellow Colorless, Yellow 12/14/2022 8:29 EST [facility] Clarity UA Clear Clear 12/14/2022 8:29 EST [facility] Glucose UA Negative Negative 12/14/2022 8:29 [facility] Bilirubin UA Negative Negative 12/14/2022 8:29 [facility] Ketones UA Negative Negative 12/14/2022 8:29 [facility] Specific [place], Urine 1.013 1.001 - 1.035 12/14/2022 8:29 [facility] Blood UA 1+(A) Negative 12/14/2022 8:29 [facility] Urobilinogen UA Normal Normal mg/dL 023 8:29 [facility] Nitrite UA Negative Negative 12/14/2022 8:29 [facility] Leukocyte Esterase UA Negative Negative 12/14/2022 8:29 [facility] Protein UA Negative Negative 12/14/2022 8:29 [facility] pH, UA 6.5 4.6 - 8.0 12/14/2022 8:29 [facility] Urine RBC Count, Auto 3 - 10(A) 0 - 2 Cells/HPF 12/14/2022 8:29 [facility] Urine WBC Count, Auto 0 - 3 0 - 3 Cells/HPF 12/14/2022 8:29 [facility] Urine Squamous Count, Auto None Seen None Seen Cells/HPF 12/14/2022 8:29 [facility] Urine Hyaline Cast Count, Auto <=10 <=10 Casts/LPF 12/14/2022 8:29 [facility] Urine Bacteria Count, Auto None Seen None Seen Bacteria/HPF 12/14/2022 8:29 [facility] Urine URINE SPECIMEN COLLECTION, CLEAN CATCH / Unknown Urine Collect / Unknown 12/14/2022 8:06 EST 12/14/2022 8:16 [facility] - 12/14/2022 8:29 [facility] NOTE: Reflex to Urine Culture test is not indicated based on Urine Sediment Analysis results. Urine Sediment Analysis results are unreliable on urines that are unrefrigerated for >2 hrs or refrigerated >8 hrs. Zully Cook MD URINALYSIS ORDERABLES Final Result [facility] [address] [place] [address] * COVID-19 TESTING (12/14/2022 8:06 EST) [facility] COVID-19 rt-PCR Result Negative Negative 12/14/2022 9:10 EST [facility] Performing Lab [facility] 12/14/2022 9:10 EST [facility] Swab ENTIRE NASOPHARYNX / Unknown Swab / Unknown 12/14/2022 8:06 EST 12/14/2022 8:16 EST Zully Cook MD MICROBIOLOGY - GENERAL DEMI CARDENAS Final Result Performing Organization Address City/[facility] [[email or web address]] Co de Phone Number [facility] [address] [place] [id number] * INFLUENZA A AND B,RSV PCR (12/14/2022 8:06 EST) [facility] FLU A RNA Result (FLARES) Negative Negative 12/14/2022 9:10 EST [facility] FLU B RNA Result (FLBRES) Negative Negative 12/14/2022 9:10 EST [facility] RSV RNA Result (RSVRES) Negative Negative 12/14/2022 9:10 EST [facility] Swab ENTIRE NASOPHARYNX / Unknown Swab / Unknown 12/14/2022 8:06 EST 12/14/2022 8:16 EST Zully Cook MD MICROBIOLOGY - GENERAL DEMI CARDENAS Final Result [facility] [address] [place] [address] * BACTERIAL CULTURE, BLOOD (12/14/2022 8:06 EST) [facility] Organism ID No Growth at 5 days 12/19/2022 8:31 EST [facility] Blood VENOUS BLOOD / Unknown Venipuncture / Unknown 12/14/2022 8:06 EST 12/14/2022 8:26 EST us Zully Cook MD MICROBIOLOGY - GENERAL DEMI CARDENAS Final Result Performing Organization Address [facility]/ZIP Co de Phone Number [facility] [address] [place] [address] * BACTERIAL CULTURE, BLOOD (12/14/2022 8:06 EST) Organism ID No Growth at 5 days 12/19/2022 8:31 EST [facility] Blood VENOUS BLOOD / Unknown Venipuncture / Unknown 12/14/2022 8:06 EST 12/14/2022 8:26 EST Zully Cook MD MICROBIOLOGY - GENERAL ORDDoug CARDENAS Final Result Performing Organization Address [facility] [[email or web address]] Co de Phone Number [facility] [address] [place] [address] * AMMONIA (12/14/2022 8:06 EST) Ammonia 33 <34 umol/L 12/14/2022 8:33 EST [facility] Blood VENOUS BLOOD / Unknown Venipuncture / Unknown 12/14/2022 8:06 EST 12/14/2022 8:16 EST Zully Cook MD CHEMISTRY & BLOOD GAS ORDER YANN Final Result Performing Organization Address [facility] [[email or web address]] Co de Phone Number [facility] [address] [place] [address] * CT ABDOMEN PELVIS W CONTRAST (12/14/2022 6:13 EST) Anatomical Region Laterality Modality Body, Abdomen, Pelvis, Abdomen and Pelvis Computed Tomography 12/14/2022 9:58 EST Impressions 12/14/2022 9:58 EST 1. ??No acute abnormality in the abdomen or pelvis. 2. ??Extensive chronic portal vein thrombosis with new involvement of the superior mesenteric vein compared to August 2022. 3. ??Cirrhotic configuration of the liver. 4. ??Splenomegaly with chronic splenic infarct, status post coil embolization. 5. ??Prior hysterectomy and cholecystectomy. 6. ??Unchanged small left adrenal nodule and right external iliac lymph node, both shown to be hypermetabolic on recent comparison PET CT. Please see that report for management recommendations. I have personally reviewed the images and the above interpretation and agree with the findings. Narrative 12/14/2022 9:[address] ABDOMEN PELVIS W CONTRAST ??12/14/2022 5:15 AM Signs and Symptoms/Comments: ?? right sided abd/chest/shoulder; Peritonitis or perforation suspected; [...] or fat stranding. Stable thickening of the left adrenal gland. Kidneys, ureters, bladder: Kidneys enhance normally [...] chronic portal vein thrombosis involving the splenic vein, main portal vein, and left portal vein, with new involvement of the superior mesenteric vein (coronal 111) compared to August 2022. Systemic collaterals are noted. ??No pathologically enlarged lymph nodes. Stable nonenlarged external [...] vertebra. No acute abnormalities or suspicious lesions. Jd Edwards Consultant: No additional findings. Procedure Note Hattie Stokes MD - 12/14/2022 CT ABDOMEN PELVIS W CONTRAST 12/14/2022 5:15 AM Signs and Symptoms/Comments: right sided abd/chest/shoulder; Peritonitis or perforation suspected;right sided abd/chest/shoulder Technique: CT of the abdomen and pelvis was performed following the administrationintravenous contrast; coronal and sagittal multiplanar reconstructionsgenerated. Comparison: PET/CT 12/07/2022. CTA abdomen pelvis 09/20/2022. Findings: Lower chest: Please see report from accompanying chest CT. Hepatobiliary: Cirrhotic configuration of the liver. No suspicious hepaticlesion. Stable mild intrahepatic and extrahepatic biliary ductaldilatation. Prior cholecystectomy. Spleen, pancreas, adrenal glands: Unchanged splenomegaly with a chronicsplenic infarct, status post coil embolization. No pancreatic ductaldilatation or fat stranding. Stable thickening of the left adrenalgland. Kidneys, ureters, bladder: Kidneys enhance normally and symmetrically. Nohydroureteronephrosis or urinary tract calculi. Bladder is distended tothe level of the iliac crest. Uterus, ovaries: Prior hysterectomy. No adnexal mass. Bowel: No obstruction or acute inflammatory changes. Formed stool ispresent throughout the colon. Prior appendectomy. Peritoneal cavity / Subperitoneal space: No free fluid or free air. Lymphovascular: Redemonstrated extensive chronic portal vein thrombosisinvolving the splenic vein, main portal vein, and left portal vein, withnew involvement of the superior mesenteric vein (coronal 111) compared toOctober 2021. Systemic collaterals are noted. No pathologically enlargedlymph nodes. Stable nonenlarged external iliac lymph node measuring 7 mm,which was shown to be hypermetabolic on comparison PET CT. Abdominal wall: No bowel-containing hernias. Prior right ventral herniarepair with mesh. There is skin thickening and fat stranding in the lowerpanniculus. Sequela of subcutaneous fat necrosis in the bilateral glutealregion. Musculoskeletal: Multilevel degenerative disc disease and facetarthropathy. Unchanged mild anterior wedging of lower thoracic vertebra.No acute abnormalities or suspicious lesions. Jd Edwards Consultant: No additional findings. IMPRESSION 1. No acute abnormality in the abdomen or pelvis. 2. Extensive chronic portal vein thrombosis with new involvement of thesuperior mesenteric vein compared to August 2022. 3. Cirrhotic configuration of the liver. 4. Splenomegaly with chronic splenic infarct, status post coilembolization. 5. Prior hysterectomy and cholecystectomy. 6. Unchanged small left adrenal nodule and right external iliac lymphnode, both shown to be hypermetabolic on recent comparison PET CT. Pleasesee that report for management recommendations. I have personally reviewed the images and the above interpretation andagree with the findings. us Zully Cook MD IMG CT ORDERABLES Final Res ult * CT ANGIO CHEST PE PROTOCOL (12/14/2022 6:13 EST) Anatomical Region Laterality Modality Chest Computed Tomogra phy 12/14/2022 9:03 EST Impressions 12/14/2022 9:03 EST 1. ??No evidence of pulmonary embolism. 2. ??Suspect mild hydrostatic edema on expiratory phase imaging. I have personally reviewed the images and the above interpretation and agree with the findings. Narrative 12/14/2022 9:[address] ANGIO CHEST PE PROTOCOL ??12/14/2022 5:15 AM Clinical History/Comments: right sided pain, hypotensive, hypoxic, eval for PE; Pulmonary embolism (PE) suspected, positive D-dimer; Technique: CT angiogram of the chest was performed with the IV administration of contrast material during the pulmonary arterial phase of enhancement. 3D advanced post-processing was performed utilizing a combination of MIP and MPR techniques with physician participation and supervision. Comparison: PET/CT 12/07/2022. CT abdomen pelvis 09/20/2022. Findings: Opacification of the pulmonary vasculature is good. No acute or chronic emboli are seen within the pulmonary arterial vasculature. Lower neck: No abnormalities. Mediastinum and leobardo (non-vascular): Prominent but not enlarged by size criteria lower paratracheal lymph nodes, likely reactive. No enlarged mediastinal or hilar lymph nodes. Esophagus is unremarkable. ?? Cardiovascular: ??Heart chambers and great vessels are normal in size. No pericardial abnormalities. Lungs and airways: ??Diffuse mosaic attenuation of the lung parenchyma with groundglass opacities and interlobular septal thickening in the lung bases. Diffuse smooth bronchial wall thickening. Regions of bandlike atelectasis are seen in the lower lobes, anterior middle lobe, and inferior lingula. Small thin-walled cyst in the lingula. No concerning pulmonary nodules. Pleura: No pleural effusion or pneumothorax. Upper abdomen (limited to upper abdomen, not optimized for abdominal imaging): A separate CT of the abdomen or abdomen and pelvis was performed on the same date. ??Please see that report. Bones and chest wall soft tissues: ??Multilevel degenerative changes in the spine. No acute osseous abnormalities or suspicious lesions. ??No significant chest wall abnormality. Procedure Note Amilcar Cook MD - 12/14/2022 CT ANGIO CHEST PE PROTOCOL 12/14/2022 5:15 AM Clinical History/Comments: right sided pain, hypotensive, hypoxic, eval for PE; Pulmonary embolism(PE) suspected, positive D-dimer; Technique: CT angiogram of the chest was performed with the IV administration ofcontrast material during the pulmonary arterial phase of enhancement. 3Dadvanced post-processing was performed utilizing a combination of MIP andMPR techniques with physician participation and supervision. Comparison: PET/CT 12/07/2022. CT abdomen pelvis 09/20/2022. Findings: Opacification of the pulmonary vasculature is good. No acute or chronicemboli are seen within the pulmonary arterial vasculature. Lower neck: No abnormalities. Mediastinum and leobardo (non-vascular): Prominent but not enlarged by sizecriteria lower paratracheal lymph nodes, likely reactive. No enlargedmediastinal or hilar lymph nodes. Esophagus is unremarkable. Cardiovascular: Heart chambers and great vessels are normal in size. Nopericardial abnormalities. Lungs and airways: Diffuse mosaic attenuation of the lung parenchyma withgroundglass opacities and interlobular septal thickening in the lungbases. Diffuse smooth bronchial wall thickening. Regions of bandlikeatelectasis are seen in the lower lobes, anterior middle lobe, andinferior lingula. Small thin-walled cyst in the lingula. No concerningpulmonary nodules. Pleura: No pleural effusion or pneumothorax. Upper abdomen (limited to upper abdomen, not optimized for abdominalimaging): A separate CT of the abdomen or abdomen and pelvis was performedon the same date. Please see that report. Bones and chest wall soft tissues: Multilevel degenerative changes in thespine. No acute osseous abnormalities or suspicious lesions. Nosignificant chest wall abnormality. IMPRESSION 1. No evidence of pulmonary embolism. 2. Suspect mild hydrostatic edema on expiratory phase imaging. I have personally reviewed the images and the above interpretation andagree with the findings. Zully Cook MD IMG CT ORDERABLES Final Res ult * LACTIC ACID (12/14/2022 5:15 EST) Lactic Acid 1.1 <=2.0 mmol/L 12/14/2022 5:34 EST [facility] Blood VENOUS BLOOD / Unknown Venipuncture / Unknown 12/14/2022 5:15 EST 12/14/2022 5:17 EST Result [facility] Zully Cook MD CHEMISTRY & BLOOD GAS ORDER YANN Final Result Performing Organization Address City/State/[facility] [[email or web address]] Co de Phone Number [facility] [address] [place] [id number] * XR CHEST 2 VIEWS (12/14/2022 5:02 EST) Anatomical Region Laterality Modality Computed Radiogr aphy 12/14/2022 8:57 EST Impressions 12/14/2022 8:57 EST 1. ??Questionable hazy opacities throughout both lungs with slight thickening of the pulmonary interstitium, possibly representing interstitial disease or very mild edema. This is similar in appearance compared to May 2022. I have personally reviewed the images and the above interpretation and agree with the findings. Narrative 12/14/2022 8:57 EST XR CHEST 2 VIEWS ??12/14/2022 5:00 AM CLINICAL HISTORY/COMMENTS: sob, chest pain - eval mediastinum COMPARISON: Chest radiographs 07/30/2022 and 06/15/2022. PET/CT 12/07/2022. TECHNIQUE: Frontal and lateral views of the chest. FINDINGS: Soft tissues and extrathoracic findings: ??Embolization coils in the left upper quadrant. Bones: No significant abnormalities. Cardiac and mediastinal contours: Normal. Lungs: Diffusely increased interstitial markings with reticular appearance which is similar to prior. ?? Pleura/diaphragms: No visible pleural abnormalities. Procedure Note Serene Bolton MD - 12/14/2022 XR CHEST 2 VIEWS 12/14/2022 5:00 AM CLINICAL HISTORY/COMMENTS: sob, chest pain - eval mediastinum COMPARISON: Chest radiographs 07/30/2022 and 06/15/2022. PET/CT 12/07/2022. TECHNIQUE: Frontal and lateral views of the chest. FINDINGS: Soft tissues and extrathoracic findings: Embolization coils in the leftupper quadrant. Bones: No significant abnormalities. Cardiac and mediastinal contours: Normal. Lungs: Diffusely increased interstitial markings with reticular appearancewhich is similar to prior. Pleura/diaphragms: No visible pleural abnormalities. IMPRESSION 1. Questionable hazy opacities throughout both lungs with slightthickening of the pulmonary interstitium, possibly representinginterstitial disease or very mild edema. This is similar in appearancecompared to May 2022. I have personally reviewed the images and the above interpretation andagree with the findings. us Zully Cook MD IMG DIAGNOSTIC IMAGING ORDDoug [facility] Final Result * POCT US ED GUIDANCE PIV (12/14/2022 4:53 EST) Anatomical Region Laterality Modality Other 12/14/2022 4:53 EST Narrative 12/14/2022 8:47 EST Study Date and Time: 2022-12-14 04:53 Study Author: Dilan Lechuga ED Procedural Guidance - PIV: Indications: ?Indications [...] flush in lumen) ?Comments: N/A Signed by Dilan Lechuga on 2022-12-14 05:21 Physician Attestation: I reviewed and independently interpreted these images. ??I was present for the brown and critical portions of the ultrasound imaging and agree with or have edited the findings as documented. Final Signature by aLry ARCHER on 2022-12-14 08:47 Procedure Note Zully Cook MD - 12/14/2022 Study Date and Time: 2022-12-14 04:53 Study Author: Dilan Lechuga ED Procedural Guidance - PIV: Indications: Indications [...] flush in lumen) Comments: N/A Signed by Dilan Lechuga on 2022-12-14 05:21 Physician Attestation: I reviewed and independently interpreted theseimages. I was present for the brown and critical portions of the ultrasoundimaging and agree with or have edited the findings as documented. Final Signature by Lary ARCHER on 2022-12-14 08:47 us Zully Cook MD IMG POCT US ORDERABLES Pricila l Result * (ABNORMAL) BLOOD GASES, VENOUS (12/14/2022 4:48 EST) pH, Venous 7.44(H) 7.31 - 7.41 12/14/2022 5:05 [facility] pCO2, Venous 39(L) 41 - 51 mmHg 12/14/2022 5:05 [facility] pO2, Venous 50 30 - 50 mmHg 12/14/2022 5:05 [facility] tCO2, Venous 28 22 - 28 mmol/L 12/14/2022 5:05 [facility] Temperature 37.0 C 12/14/2022 5:05 [facility] Comment:Body Temp not noted. 37 degrees assumed. O2 Saturation, Venous 85 60 - 85 % 12/14/2022 5:05 [facility] Oxygen Therapy (FIO2) 12/14/2022 5:05 [facility] Comment:Not provided Base Level 2.10 -2.00 - 3.00 mmol/L 12/14/2022 5:05 [facility] Blood VENOUS BLOOD / Unknown Venipuncture / Unknown 12/14/2022 4:48 EST 12/14/2022 4:53 EST Zully Cook MD CHEMISTRY & BLOOD GAS ORDER YANN Final Result Performing Organization Address City/State/[facility] [[email or web address]] Co de Phone Number [facility] [address] [place] [address] * EKG 12-LEAD (12/14/2022 3:25 EST) 12/14/2022 3:25 EST Narrative [facility] EKG - 12/15/2022 14:16 EST ?[facility] ? Test Date: ?2022-12-14 Pat Name: ? PHYLISS BOOTHE ?Department: ?? ED ? Room: ? GT24 Gender: ? Female ? Record Pressman: ?? : ?1960 ? Requested By: KELTON GARZA Order Number: [id number] ? Reading : ?? JESUS GALVAN MD ? Measurements Intervals ?[place] ? Rate: ? 75 ? P: ?63 WV: ? 149 ?QRS: ?55 QRSD: ? 90 ? T: ?40 QT: ? 392 ? QTc: ?439 ? Interpretive Statements SINUS RHYTHM NONSPECIFIC T-WAVE ABNORMALITY Compared to ECG 07/22/2022 17:16:55 No significant changes I reviewed the tracing and have either agreed or edited the findings in this report. Electronically Signed On 12-15-2022 14:16:42 EST by JESUS GALVAN MD. Procedure Note Jesus Galvan MD - 12/15/2022 [facility] Test Date: 2022-12-14 Pat Name: TARA BOOTHE Department: ED Room: [facility] Gender: Female Record Pressman: : 1960 Requested By: KELTON GARZA Order Number: [id number] Reading MD: JESUS GALVAN MD Measurements Intervals [place] Rate: 75 P: 63 WV: 149 QRS: 55 QRSD: 90 T: 40 QT: 392 QTc: 439 Interpretive Statements SINUS RHYTHM NONSPECIFIC T-WAVE ABNORMALITY Compared to ECG 07/22/2022 17:16:55 No significant changes I reviewed the tracing and have either agreed or edited the findings inthis report. Electronically Signed On 12-15-2022 14:16:42 EST by JESUS SKINNER. us Carlos Chacko MD CARDIAC ECG ORDERABLES Fi nal Result [facility] EKG * TSH (12/14/2022 2:22 EST) TSH 4.36 0.47 - 4.68 mIU/L 12/14/2022 16:00 EST [facility] Blood VENOUS BLOOD / Unknown Venipuncture / Unknown 12/14/2022 2:22 EST 12/14/2022 2:28 EST Narrative [facility] - 12/14/2022 16:00 EST The results of this assay can be falsely lowered due to the consumption of Biotin. us Hi Gaspar MD CHEMISTRY & BLOOD GAS ORDERABLES Final Result [facility] [address] [place] [address] * CORTISOL (12/14/2022 2:22 EST) Cortisol 11 See Note ug/dL 12/14/2022 16:00 EST [facility] Comment: NOTE: Reference Ranges (from [facility] IFU): Collected Before 10:00 AM: ??4 - 23 ug/dL Collected After 5:00 PM: ?2 - 14 ug/dL The results of this assay can be falsely elevated due to the consumption of Biotin. Blood VENOUS BLOOD / Unknown Venipuncture / Unknown 12/14/2022 2:22 EST 12/14/2022 2:28 EST Hi Gaspar MD CHEMISTRY & BLOOD GAS ORDERABLES Final Result Performing Organization Address [facility] de Phone Number [facility] [address] [place] [address] * PROTIME (12/14/2022 2:22 EST) Pathologist [facility] I.N.R. 1.1 0.9 - 1.1 Ratio 12/14/2022 12:07 EST [facility] Pro Time 11.9 9.7 - 12.8 secs 12/14/2022 12:07 EST [facility] Blood VENOUS BLOOD / Unknown Venipuncture / Unknown 12/14/2022 2:22 EST 12/14/2022 2:28 EST Narrative [facility] - 12/14/2022 12:07 EST Moderate Intensity Coumadin INR = 2.0-3.0 Adjustments in anticoagulant therapy dose should be based on the INR and NOT on the Protime. Hi Gaspar MD HEMATOLOGY & PF4 ORDERABLES Pricila l Result Performing Organization Address [facility] de Phone Number [facility] [address] [place] [address] * (ABNORMAL) HEPATIC FUNCTION PANEL (ALB,ALK PHOS,ALT,AST,DBIL,TOT NYA,TOT PROT) (12/14/2022 2:22 EST) Pathologist [facility] Total Protein 6.7 6.3 - 8.2 g/dL 12/14/2022 5:54 EST [facility] Albumin 3.7 3.4 - 4.9 g/dL 12/14/2022 5:54 EST [facility] Bilirubin, Total 0.5 <1.4 mg/dL 12/14/19 5:54 EST [facility] Conjugated Bilirubin 0.0 <=0.3 mg/dL 12/14/2022 5:54 [facility] Unconjugated Bilirubin 0.2 <=1.1 mg/dL 12/14/2022 5:54 [facility] Alkaline Phosphatase 144(H) 38 - 126 U/L 12/14/2022 5:54 [facility] ALT 14 <35 U/L 12/14/2022 5:54 [facility] AST 27 15 - 46 U/L 12/14/2022 5:54 [facility] Calculated Total Bilirubin 0.2 <1.4 mg/dL 12/14/2022 5:54 [facility] Blood VENOUS BLOOD / Unknown Venipuncture / Unknown 12/14/2022 2:22 EST 12/14/2022 2:28 EST Result [facility] Zully Cook MD CHEMISTRY & BLOOD GAS ORDER YANN Final Result Performing Organization Address City/[facility]/ZIP Co de Phone Number [facility] [address] [place] [address] * (ABNORMAL) D-DIMER (12/14/2022 2:22 EST) [facility] D-Dimer 1,494(H) <=230 ng/mL DDU 12/14/2022 4:32 EST [facility] Blood VENOUS BLOOD / Unknown Venipuncture / Unknown 12/14/2022 2:22 EST 12/14/2022 2:28 EST Narrative [facility] - 12/14/2022 4:32 EST Cutoff value for the exclusion of DVT and PE: 230 ng/mL D-dimer units. Zully Cook MD HEMATOLOGY & PF4 ORDERABLES Final Result Performing Organization Address City/[facility]/ZIP Co de Phone Number [facility] [address] [place] [address] * TROPONIN I (12/14/2022 2:22 EST) Troponin I (ng/mL) <0.034 <0.034 ng/mL 12/14/2022 3:58 EST [facility] Blood VENOUS BLOOD / Unknown Venipuncture / Unknown 12/14/2022 2:22 EST 12/14/2022 2:28 EST Narrative [facility] - 12/14/2022 3:58 EST The results of this assay can be falsely lowered due to the consumption of Biotin. Carlos Chacko MD CHEMISTRY & BLOOD GAS ORD ERABLES Final Result Performing Organization Address [facility]/ZIP Co de Phone Number [facility] [address] [place] [address] * MAGNESIUM (12/14/2022 2:22 EST) [facility] Magnesium 1.8 1.7 - 2.8 mg/dL 12/14/2022 3:46 EST [facility] Blood VENOUS BLOOD / Unknown Venipuncture / Unknown 12/14/2022 2:22 EST 12/14/2022 2:28 EST Carlos Chacko MD CHEMISTRY & BLOOD GAS ORD ERABLES Final Result Performing Organization Address [facility] [[email or web address]] Co de Phone Number [facility] [address] [place] [address] * (ABNORMAL) COMPLETE BLOOD COUNT AND DIFFERENTIAL (12/14/2022 2:22 EST) Pathologist [facility] WBC 3.93(L) 4.00 - 12.40 K/cmm 12/14/2022 4:11 [facility] RBC 3.76(L) 3.86 - 5.04 M/cmm 12/14/2022 4:11 [facility] Hemoglobin 11.0(L) 11.6 - 15.2 gm/dL 12/14/2022 4:11 [facility] HCT 33.2(L) 34.9 - 44.4 % 12/14/2022 4:11 [facility] MCV 88 81 - 98 fl 12/14/2022 4:11 [facility] MCH 29.3 26.7 - 33.3 pg 12/14/2022 4:11 [facility] MCHC 33.1 32.1 - 35.9 gm/dL 12/14/2022 4:11 [facility] RDW-CV 14.7(H) <14.7 % 12/14/2022 4:11 [facility] RDW-SD 47.7 <50.4 fl 12/14/2022 4:11 [facility] PLT 81(L) 141 - 377 K/cmm 12/14/2022 4:11 [facility] MPV 10.2 9.5 - 12.7 fl 12/14/2022 4:11 [facility] % Neutrophils 72.0 % 12/14/2022 4:11 [facility] % Lymphocytes 11.2 % 12/14/2022 4:11 [facility] % Monocytes 14.2 % 12/14/2022 4:11 [facility] % Eosinophils 1.5 % 12/14/2022 4:11 [facility] % Basophils 0.8 % 12/14/2022 4:11 [facility] % Immature Grans 0.3 % 12/14/19 4:11 [facility] Absolute Neutrophils 2.83 2.20 - 8.85 K/cmm 12/14/2022 4:11 [facility] Absolute Lymphocytes 0.44(L) 1.09 - 3.30 K/cmm 12/14/2022 4:11 [facility] Absolute Monocytes 0.56 0.10 - 0.80 K/cmm 12/14/2022 4:11 [facility] Absolute Eosinophils 0.06 0.03 - 0.61 K/cmm 12/14/2022 4:11 [facility] ABS Basophils 0.03 0.01 - 0.11 K/cmm 12/14/2022 4:11 [facility] Absolute Immature Grans 0.01 0.00 - 0.06 K/cmm 12/14/2022 4:11 [facility] Type of Differential: Auto 12/14/2022 4:11 [facility] Blood VENOUS BLOOD / Unknown Venipuncture / Unknown 12/14/2022 2:22 EST 12/14/2022 2:28 EST Carlos Chacko MD PACKAGES & DNA PROBE DEMI CARDENAS Final Result [facility] [address] [place] [address] * (ABNORMAL) BASIC METABOLIC PANEL (BMP) (12/14/2022 2:22 EST) Sodium 133(L) 136 - 145 mmol/L 12/14/2022 3:46 [facility] Potassium 4.1 3.5 - 5.0 mmol/L 12/14/2022 3:46 [facility] Chloride 97 96 - 110 mmol/L 12/14/2022 3:46 [facility] CO2 Total 30 22 - 32 mmol/L 12/14/2022 3:46 [facility] Anion Gap 6 5 - 14 12/14/2022 3:46 [facility] Glucose 88 70 - 100 mg/dL 12/14/2022 3:46 [facility] Calcium 8.8 8.5 - 10.5 mg/dL 12/14/2022 3:46 [facility] BUN 15 10 - 26 mg/dL 12/14/2022 3:46 [facility] Creatinine 1.23(H) 0.52 - 1.04 mg/dL 12/14/2022 3:46 [facility] eGFR 50(L) >60 mL/min/1.73 m2 12/14/2022 3:46 [facility] Blood VENOUS BLOOD / Unknown Venipuncture / Unknown 12/14/2022 2:22 EST 12/14/2022 2:28 EST Carlos Chacko MD CHEMISTRY & BLOOD GAS ORD ERABLES Final Result [facility] [address] [place] [address] * HOLD BLUE TOP (12/14/2022 2:22 EST) Hold Hold 12/14/2022 3:32 EST [facility] Blood VENOUS BLOOD / Unknown Venipuncture / Unknown 12/14/2022 2:22 EST 12/14/2022 2:28 EST us Carlos Chacko MD LAB INFO SERVICE AND SUPP ORT & PHONE RESULT Final Result [facility] [address] [place] [address] * HOLD SST (12/14/2022 2:22 EST) Hold Hold 12/14/2022 3:32 EST [facility] Blood VENOUS BLOOD / Unknown Venipuncture / Unknown 12/14/2022 2:22 EST 12/14/2022 2:28 EST us Carlos Chacko MD LAB INFO SERVICE AND SUPP ORT & PHONE RESULT Final Result [facility] [address] [place] [id number] * HOLD LAVENDER TOP (12/14/2022 2:22 EST) Hold Hold 12/14/2022 3:32 EST [facility] Blood VENOUS BLOOD / Unknown Venipuncture / Unknown 12/14/2022 2:22 EST 12/14/2022 2:28 EST us Carlos Chacko MD LAB INFO SERVICE AND SUPP ORT & PHONE RESULT Final Result [facility] [address] [place] [address] * HOLD GREEN TOP (12/14/2022 2:22 EST) Hold Hold 12/14/2022 3:32 EST [facility] Blood VENOUS BLOOD / Unknown Venipuncture / Unknown 12/14/2022 2:22 EST 12/14/2022 2:28 EST us Carlos Chacko MD LAB INFO SERVICE AND SUPP ORT & PHONE RESULT Final Result [facility] [address] [place] [address] documented in this encounter Visit Diagnoses Diagnosis Sepsis (HCC-CMS)- Primary Sepsis (HCC-CMS) Hypotension, unspecified hypotension type Alcoholic cirrhosis of liver without ascites (HCC-CMS) Alcoholic cirrhosis of liver Portal vein thrombosis Hypercoagulable state (HCC-CMS) Primary hypercoagulable state History of bleeding ulcers Personal history of peptic ulcer disease Superior mesenteric vein thrombosis (HCC-CMS) Acute vascular insufficiency of intestine Right foot pain Pain in limb Cirrhosis (HCC-CMS) Cirrhosis of liver without mention of alcohol Hypotension Hypotension, unspecified Hypercoagulable state (HCC-CMS) Primary hypercoagulable state History of bleeding ulcers Personal history of peptic ulcer disease Superior mesenteric vein thrombosis (HCC-CMS) Acute vascular insufficiency of intestine Right foot pain Pain in limb documented in this encounter Admitting Diagnoses Diagnosis Cirrhosis (HCC-CMS) Cirrhosis of liver without mention of alcohol documented in this encounter Administered Medications Inactive Administered Medications - up to 3 most recent administrations Medication Order MAR Action Action Date Dose Rate Site albuterol inhaler 180 mcg 180 mcg (2 Puff), inhalation, EVERY 4 HOURS PRN, Starting on Tue12/17/22 at 1115, Until 12/18/22 at 1440, Wheezing, Routine artificial saliva solution 15 mL 15 mL, oral, 3 TIMES DAILY PRN, Starting on Tue12/17/22 at 1014, Until 12/18/22 at 1440, Dry Mouth, Routine azithromycin (ZITHROMAX) 500 mg in dextrose 5% (D5W) 250 mL IVPB 500 mg, intravenous, Administer over 60 Minutes, NOW X1, 1 dose, On Tue12/14/22 at 0900, Type of Therapy: Empiric, Suspected Indication (Select all that apply): Community acquired pneumonia ( with ceftriaxone, unable to take po), ID Consult: No, STAT New Bag 12/14/2022 9:00 EST 500 mg B-Complex with Vitamin C tablet 1 Tablet 1 Tablet, oral, DAILY, First dose on Tue12/15/22 at 0900, Until Discontinued, Routine Given 12/18/2022 8:31 EST 1 Tablet Given 12/17/2022 8:42 EST 1 Tablet Given 12/16/2022 8:00 EST 1 Tablet calcium carbonate (TUMS) tablet 500 mg (200 mg elemental calcium) 1 Tablet 1 Tablet, oral, 4 TIMES DAILY PRN, Starting on Tue12/16/22 at 0838, Until Tue12/18/22 at 1440, Heartburn, Routine Given 12/16/2022 8:50 EST 1 Tablet cefTRIAXone (ROCEPHIN) 2,000 mg in sodium chloride (NS MBP) 50 mL IVPB 2,000 mg, intravenous, Administer over 30 Minutes, NOW X1, 1 dose, On Tue12/14/22 at 0900, Type of Therapy: Empiric, Suspected Indication (Select all that apply): Aspiration pneumonia ? community acquired, ID Consult: No, STAT Given by Other 12/14/2022 11:03 EST 2,000 mg enoxaparin (LOVENOX) injection 40 mg 40 mg, subcutaneous, DAILY, First dose on Tue12/15/22 at 0900, Until Discontinued, Routine Given 12/15/2022 8:30 EST 40 mg enoxaparin (LOVENOX) injection 60 mg 60 mg, subcutaneous, DAILY, First dose (after last modification) on Tue12/16/22 at 0900, Until Discontinued, Routine Given 12/18/2022 8:30 EST 60 mg Given 12/17/2022 8:47 EST 60 mg Given 12/16/2022 8:00 EST 60 mg furosemide (LASIX) tablet 20 mg 20 mg, oral, DAILY, First dose on Tue12/16/22 at 1100, Until Discontinued, Routine Given 12/17/2022 8:42 EST 20 mg Given 12/16/2022 10:55 EST 20 mg furosemide (LASIX) tablet 40 mg 40 mg, oral, DAILY, First dose (after last modification) on Tue12/18/22 at 0900, Until Discontinued, Routine Given 12/18/2022 8:31 EST 40 mg gabapentin (NEURONTIN) capsule 300 mg 300 mg, oral, 3 TIMES DAILY, First dose on Tue12/16/22 at 1100, Until Discontinued, Routine Given 12/18/2022 8:31 EST 30 0 mg Given 12/17/2022 22:39 EST 300 mg Given 12/17/2022 14:20 EST 300 mg HYDROmorphone (DILAUDID) tablet 1 mg 1 mg, oral, NOW X1, 1 dose, On Tue12/14/22 at 1500, STAT Given 12/14/2022 14:42 EST 1 mg HYDROmorphone (DILAUDID) tablet 1 mg 1 mg, oral, EVERY 4 HOURS PRN, Starting on Tue12/14/22 at 1544, Until Tue12/16/22 at 1039, Severe Pain 7-10, Routine Given 12/16/2022 7:50 EST 1 mg Given 12/16/2022 3:14 EST 1 mg Given 12/15/2022 19:00 EST 1 mg iohexoL (OMNIPAQUE 350) solution 100 mL 100 mL, intravenous, Once in imaging, 1 dose, Starting on Tue12/14/22 at 0603, Until Tue12/14/22 at 0613, Routine, Imaging Protocol Orders Given 12/14/2022 6:13 EST 100 mL ipratropium-albuteroL (DUONEB) 0.5 mg-3 mg(2.5 mg base)/3 mL nebulizer solution 3 mL 3 mL, nebulization, NOW X1, 1 dose, On Tue12/14/22 at 0430, STAT Given 12/14/2022 4:30 EST 3 mL ipratropium-albuteroL (DUONEB) 0.5 mg-3 mg(2.5 mg base)/3 mL nebulizer solution 3 mL 3 mL, nebulization, EVERY 4 HOURS PRN, Starting on Tue12/14/22 at 1452, Until Tue12/17/22 at 1115, Wheezing, Routine Given 12/17/2022 11:05 EST 3 mL Given 12/16/2022 19:54 EST 3 mL Given 12/14/2022 19:50 EST 3 mL lactated ringers BOLUS 1,000 mL 1,000 mL, intravenous, NOW X1, 1 dose, On Tue12/14/22 at 0915, STAT New Bag 12/14/2022 8:47 EST 1,000 mL lactated ringers BOLUS 1,000 mL 1,000 mL, intravenous, NOW X1, 1 dose, On Tue12/14/22 at 1515, STAT Given 12/14/2022 15:51 EST 1,000 mL lactated ringers BOLUS 1,000 mL 1,000 mL, intravenous, NOW X1, 1 dose, On Tue12/14/22 at 1900, Routine Given 12/14/2022 19:00 EST 1,000 mL lactated ringers BOLUS 500 mL 500 mL, intravenous, NOW X1, 1 dose, On Tue12/14/22 at 0415, STAT New Bag 12/14/2022 4:24 EST 500 mL lactated ringers BOLUS 500 mL 500 mL, intravenous, NOW X1, 1 dose, On Tue12/14/22 at 0800, STAT New Bag 12/14/2022 8:09 EST 500 mL lactulose (CHRONULAC) 20 gram/30 mL solution 30 mL 30 mL, oral, 2 TIMES DAILY, First dose on Tue12/15/22 at 1545, Until Discontinued, Routine Given 12/16/2022 20:02 EST 30 mL Given 12/15/2022 20:12 EST 30 mL Given 12/15/2022 16:05 EST 30 mL levothyroxine (SYNTHROID) tablet 25 mcg 25 mcg, oral, DAILY BEFORE BREAKFAST, First dose on Tue12/15/22 at 0700, Until Discontinued, Routine Given 12/18/2022 6:20 EST 25 mcg Given 12/17/2022 6:31 EST 25 mcg Given 12/16/2022 7:55 EST 25 mcg lidocaine (PF) 10 mg/mL (1 %) injection 2 mg 2 mg, intradermal, PRN, 4 doses, Starting on Tue12/14/22 at 1152, Until 12/18/22 at 1440, peripheral intravenous catheter placement, Routine lidocaine 5 % (LIDODERM) patch 1 Patch 1 Patch, transdermal, Administer over 12 Hours, DAILY, First dose on Tue12/16/22 at 1100, Until Discontinued, Routine Patch Applied 12/18/2022 8:30 EST 1 Patch Back Patch Applied 12/17/2022 8:42 EST 1 Patch Ba ck Patch Applied 12/16/2022 10:54 EST 1 Patch B ack magnesium sulfate 2 g in water 50 mL 2 g, intravenous, Administer over 60 Minutes, NOW X1, 1 dose, On Tue12/15/22 at 0430, Routine New Bag 12/15/2022 4:21 EST 2 g magnesium sulfate 2 g in water 50 mL 2 g, intravenous, Administer over 60 Minutes, NOW X1, 1 dose, On Tue12/16/22 at 0930, Routine New Bag 12/16/2022 9:09 EST 2 g magnesium sulfate 2 g in water 50 mL 2 g, intravenous, Administer over 60 Minutes, NOW X1, 1 dose, On Tue12/17/22 at 1430, Routine New Bag 12/17/2022 15:14 EST 2 g norepinephrine (LEVOPHED) 8 mg in D5W 250 mL infusion 2-30 mcg/min (3.75-56.25 mL/hr, rounded to 3.8-56.3 mL/hr), intravenous, CONTINUOUS, Starting on Tue12/14/22 at 0915, Until Tue12/15/22 at 0437, STAT Rate Documented 12/14/2022 18:00 EST 2 mcg/min 3.8 mL/h r Rate Change 12/14/2022 17:47 EST 2 mcg/min 3.8 mL/hr Rate Documented 12/14/2022 17:00 EST 4 mcg/min 7.5 mL/hr norepinephrine (LEVOPHED) in D5W 32 mcg/ml 250 ml 8 mg/250 mL (32 mcg/mL) infusion solution 1 dose, Starting on Tue12/14/22 at 0838, Until Tue12/14/22 at 0847 nystatin (MYCOSTATIN) powder topical, 2 TIMES DAILY PRN, Starting on Tue12/16/22 at 1534, Until 12/18/22 at 1440, Other, For redness in abdominal folds ondansetron (PF) (ZOFRAN) injection 4 mg 4 mg, intravenous, EVERY 1 HOUR PRN, 3 doses, Starting on Tue12/14/22 at 0411, Until Tue12/14/22 at 1503, Nausea, STAT Given 12/14/2022 4:24 EST 4 mg ondansetron (PF) (ZOFRAN) injection 4 mg 4 mg, intravenous, EVERY 4 HOURS PRN, Starting on Tue12/14/22 at 1453, Until 12/18/22 at 1440, Nausea, Routine Given 12/18/2022 4:22 EST 4 mg oxyCODONE (ROXICODONE) immediate release tablet 5 mg 5 mg, oral, EVERY 4 HOURS PRN, Starting on Tue12/16/22 at 1039, Until Tue12/18/22 at 1440, Pain, Routine Given 12/18/2022 12:35 EST 5 mg Given 12/18/2022 8:31 EST 5 mg Given 12/18/2022 3:28 EST 5 mg pantoprazole (PROTONIX) injection 40 mg 40 mg, intravenous, DAILY, First dose on Tue12/15/22 at 0900, Until Discontinued, Routine pantoprazole (PROTONIX) tablet 40 mg 40 mg, oral, DAILY, First dose on Tue12/15/22 at 0900, Until Discontinued, Routine Given 12/18/2022 8:31 EST 40 mg Given 12/17/2022 8:42 EST 40 mg Given 12/16/2022 8:01 EST 40 mg ramelteon (ROZEREM) tablet 8 mg 8 mg, oral, AT BEDTIME PRN, Starting on Tue12/15/22 at 2103, Until 12/18/22 at 1440, Sleep, Routine Given 12/17/2022 23:38 EST 8 mg Given 12/15/2022 21:36 EST 8 mg sertraline (ZOLOFT) tablet 50 mg 50 mg, oral, DAILY, First dose on Tue12/15/22 at 0900, Until Discontinued, Routine Given 12/18/2022 8:31 EST 50 mg Given 12/17/2022 8:42 EST 50 mg Given 12/16/2022 8:00 EST 50 mg spironolactone (ALDACTONE) tablet 100 mg 100 mg, oral, DAILY, First dose (after last modification) on Tue12/18/22 at 0900, Until Discontinued, Routine Given 12/18/2022 8:32 EST 100 mg spironolactone (ALDACTONE) tablet 50 mg 50 mg, oral, DAILY, First dose on Tue12/16/22 at 1100, Until Discontinued, Routine Given 12/17/2022 8:42 EST 50 mg Given 12/16/2022 10:55 EST 50 mg tiotropium bromide (SPIRIVA RESPIMAT) 2.5 mcg/actuation inhalation mist 2 Puff 2 Puff (5 mcg), inhalation, DAILY, First dose on Tue12/15/22 at 0900, Until Discontinued Given 12/18/2022 8:35 EST 2 Pu ffs Given 12/17/2022 8:42 EST 2 Puffs Given 12/16/2022 7:34 EST 2 Puffs traZODone (DESYREL) tablet 200 mg 200 mg, oral, AT BEDTIME, First dose on Tue12/17/22 at 2100, Until Discontinued, Routine Given 12/17/2022 22:39 EST 2 00 mg documented in this encounter Discontinued Medications Medication Sig Discontinue Reason Start Date End Da te oxyCODONE (ROXICODONE) 5 mg immediate release tablet Take 1 Tablet by mouth 3 times daily as needed for up to 28 days for Pain. Daily Max: 15 mg Reorder 11/24/2022 12/18/2022 documented as of this encounter Active and Recently Administered Medications Times are shown in EST. Scheduled Medication Order 12/16/2022 12/17/2022 12/18/2022 B-Complex with Vitamin C tablet 1 Tablet 1 Tablet, oral, DAILY, First dose on Tue12/15/22 at 0900, Until Discontinued, Routine 0800 (Given - Provider: Jalil Mina RN) 0842 (Given - Provider: Azam Pérez, KENN) 0831 (Given - Provider: Jes Rapp) enoxaparin (LOVENOX) injection 60 mg 60 mg, subcutaneous, DAILY, First dose (after last modification) on Tue12/16/22 at 0900, Until Discontinued, Routine 0800 (Given - Provider: Jalil Mina, KENN) 0847 (Given - Provider: Azam Pérez, RN) 0830 (Given - Provider: Jes Rapp) furosemide (LASIX) tablet 20 mg (CANCELED) 20 mg, oral, DAILY, First dose on Tue12/16/22 at 1100, Until Discontinued, Routine 1055 (Given - Provider: Jalil Mina RN) 0842 (Given - Provider: Azam Pérez, RN) furosemide (LASIX) tablet 40 mg 40 mg, oral, DAILY, First dose (after last modification) on Tue12/18/22 at 0900, Until Discontinued, Routine 0831 (Given - Provider: Jes Rapp) gabapentin (NEURONTIN) capsule 300 mg 300 mg, oral, 3 TIMES DAILY, First dose on Tue12/16/22 at 1100, Until Discontinued, Routine 1055 (Given - Provider: Jalil Mina RN)2001 (Given - Provider: Nita Diane RN) 0842 (Given - Provider: Azam Pérez RN)1420 (Given - Provider: Azam Pérez RN)2239 (Given - Provider: Stacey Ortez RN) 0831 (Given - Provider: Jes Rapp)1400 (Canceled Entry - Provider: Batch Job User Admin - Comment: Automatically canceled at discontinue of medication order) lactulose (CHRONULAC) 20 gram/30 mL solution 30 mL 30 mL, oral, 2 TIMES DAILY, First dose on Tue12/15/22 at 1545, Until Discontinued, Routine 0801 (Hold - Provider: Jalil Mina RN - Reason: Change in condition)2001 (Given - Provider: Nita Diane RN) 0842 (Not Given - Provider: Azam Pérez RN - Reason: Patient/family refused)2118 (Not Given - Provider: Stacey Ortez RN - Reason: Patient/family refused) 0834 (Not Given - Provider: Jes Rapp - Reason: Patient/family refused) levothyroxine (SYNTHROID) tablet 25 mcg 25 mcg, oral, DAILY BEFORE BREAKFAST, First dose on Tue12/15/22 at 0700, Until Discontinued, Routine 0755 (Given - Provider: Jalil Mina RN) 0631 (Given - Provider: Mirna Moody, KENN) 0620 (Given - Provider: Stacey Ortez RN) lidocaine 5 % (LIDODERM) patch 1 Patch 1 Patch, transdermal, Administer over 12 Hours, DAILY, First dose on Tue12/16/22 at 1100, Until Discontinued, Routine 1054 (Patch Applied - Provider: Jalil Mina RN)2352 (Patch Removed - Provider: Mirna Moody, KENN) 0842 (Patch Applied - Provider: Azam Pérez RN)2240 (Patch Removed - Provider: Stacey Ortez RN) 0830 (Patch Applied - Provider: Jes Rapp)1240 (Due: Patch Removed - Provider: Batch Job User Admin - Comment: Time automatically adjusted from order being discontinued) magnesium sulfate 2 g in water 50 mL (COMPLETED) 2 g, intravenous, Administer over 60 Minutes, NOW X1, 1 dose, On Kirsten 12/16/22 at 0930, Routine 0909 (New Bag - Provider: Jalil Mina RN) magnesium sulfate 2 g in water 50 mL (COMPLETED) 2 g, intravenous, Administer over 60 Minutes, NOW X1, 1 dose, On Tue12/17/22 at 1430, Routine 1514 (New Bag - Provider: Azam Pérez, RN) pantoprazole (PROTONIX) injection 40 mg(Linked Group 1) 40 mg, intravenous, DAILY, First dose on Tue12/15/22 at 0900, Until Discontinued, Routine 0801 (See Alternative - Provider: Jalil Mina RN) 0842 (See Alternative - Provider: Azam Pérez, KENN) 0831 (See Alternative - Provider: Jes Rapp) pantoprazole (PROTONIX) tablet 40 mg(Linked Group 1) 40 mg, oral, DAILY, First dose on Tue12/15/22 at 0900, Until Discontinued, Routine 0801 (Given - Provider: Jalil Mina RN) 0842 (Given - Provider: Azam Pérez, KENN) 0831 (Given - Provider: Jes Rapp) sertraline (ZOLOFT) tablet 50 mg 50 mg, oral, DAILY, First dose on Tue12/15/22 at 0900, Until Discontinued, Routine 0800 (Given - Provider: Jalil Mina RN) 0842 (Given - Provider: Azam Pérez RN) 0831 (Given - Provider: Jes Rapp) spironolactone (ALDACTONE) tablet 100 mg 100 mg, oral, DAILY, First dose (after last modification) on 12/18/22 at 0900, Until Discontinued, Routine 0832 (Given - Provider: Jes Rapp) spironolactone (ALDACTONE) tablet 50 mg (CANCELED) 50 mg, oral, DAILY, First dose on Kirsten 12/16/22 at 1100, Until Discontinued, Routine 1055 (Given - Provider: Jalil Mina RN) 0842 (Given - Provider: Azam Pérez RN) tiotropium bromide (SPIRIVA RESPIMAT) 2.5 mcg/actuation inhalation mist 2 Puff 2 Puff (5 mcg), inhalation, DAILY, First dose on Tue12/15/22 at 0900, Until Discontinued 0734 (Given - Provider: Anthony Gotti, RT) 0842 (Given - Provider: Azam Pérez, RN) 0835 (Given - Provider: Jes Rapp) traZODone (DESYREL) tablet 200 mg 200 mg, oral, AT BEDTIME, First dose on Tue12/17/22 at 2100, Until Discontinued, Routine 2239 (Given - Provider: Stacey Ortez, KENN - Comment: pt request) PRN Medication Order 12/16/2022 12/17/2022 12/18/2022 albuterol inhaler 180 mcg 180 mcg (2 Puff), inhalation, EVERY 4 HOURS PRN, Starting on Tue12/17/22 at 1115, Until 12/18/22 at 1440, Wheezing, Routine artificial saliva solution 15 mL 15 mL, oral, 3 TIMES DAILY PRN, Starting on Tue12/17/22 at 1014, Until Tue12/18/22 at 1440, Dry Mouth, Routine calcium carbonate (TUMS) tablet 500 mg (200 mg elemental calcium) 1 Tablet 1 Tablet, oral, 4 TIMES DAILY PRN, Starting on Tue12/16/22 at 0838, Until 12/18/22 at 1440, Heartburn, Routine 0850 (Given - Provider: Jalil Mina, KENN) HYDROmorphone (DILAUDID) tablet 1 mg (CANCELED) 1 mg, oral, EVERY 4 HOURS PRN, Starting on Tue12/14/22 at 1544, Until Tue12/16/22 at 1039, Severe Pain 7-10, Routine 0314 (Given - Provider: Christine Soto, RN)0750 (Given - Provider: Jalil Mina, KENN) ipratropium-albuteroL (DUONEB) 0.5 mg-3 mg(2.5 mg base)/3 mL nebulizer solution 3 mL (CANCELED) 3 mL, nebulization, EVERY 4 HOURS PRN, Starting on Tue12/14/22 at 1452, Until Tue12/17/22 at 1115, Wheezing, Routine 1954 (Given - Provider: Jayden Garcia, RT) 1105 (Given - Provider: Karla Srinivasan, RT) lidocaine (PF) 10 mg/mL (1 %) injection 2 mg 2 mg, intradermal, PRN, 4 doses, Starting on Tue12/14/22 at 1152, Until Tue12/18/22 at 1440, peripheral intravenous catheter placement, Routine nystatin (MYCOSTATIN) powder topical, 2 TIMES DAILY PRN, Starting on Tue12/16/22 at 1534, Until 12/18/22 at 1440, Other, For redness in abdominal folds ondansetron (PF) (ZOFRAN) injection 4 mg 4 mg, intravenous, EVERY 4 HOURS PRN, Starting on Tue12/14/22 at 1453, Until 12/18/22 at 1440, Nausea, Routine 0422 (Given - Provider: Stacey Ortez, KENN) oxyCODONE (ROXICODONE) immediate release tablet 5 mg 5 mg, oral, EVERY 4 HOURS PRN, Starting on Tue12/16/22 at 1039, Until 12/18/22 at 1440, Pain, Routine 1057 (Given - Provider: Jalil Mina, RN)1602 (Given - Provider: Nita Diane, RN)2002 (Given - Provider: Nita Diane, RN) 0029 (Given - Provider: Mirna Moody, KENN)0512 (Given - Provider: Mirna Moody, KENN)0955 (Given - Provider: Azam Pérez, RN)1420 (Given - Provider: Azam Pérez, RN)1838 (Given - Provider: Azam Pérez, RN)2238 (Given - Provider: Stacey Ortez RN) 0328 (Given - Provider: Stacey Ortez RN)0831 (Given - Provider: Jes Rapp)1235 (Given - Provider: Leti Burks, KENN) ramelteon (ROZEREM) tablet 8 mg 8 mg, oral, AT BEDTIME PRN, Starting on Tue12/15/22 at 2103, Until Tue12/18/22 at 1440, Sleep, Routine 2338 (Given - Provider: Stacey Ortez, RN) Linked Groups Order Group 1: pantoprazole (PROTONIX) tablet 40 mgJump to med 40 mg, oral, DAILY, First dose on Tue12/15/22 at 0900, Until Discontinued, Routine Or pantoprazole (PROTONIX) injection 40 mgJump to med 40 mg, intravenous, DAILY, First dose on Tue12/15/22 at 0900, Until Discontinued, Routine documented in this encounter Orders Medications Ordered That Luc ht Not Have Been Administered Count Last Ordered Date First Ordered Date albuterol inhaler 180 mcg 1 12/17/2022 artificial saliva solution 15 mL 1 12/17/19 nystatin (MYCOSTATIN) powder 1 12/16/2022 oxyCODONE (ROXICODONE) immed iate release tablet 5 mg 1 12/16/2022 lidocaine (PF) 10 mg/mL (1 % ) injection 2 mg 1 12/14/2022 magnesium sulfate 2 g in water 50 mL 1 11/22 pantoprazole (PROTONIX) injection 40 mg 2 0 12/14/2022 potassium chloride in water infusion 20 mEq 1 12/14/2022 Lab Orders Without Results Count Last Ordered D ate First Ordered Date BASIC METABOLIC PANEL (BMP) 1 12/18/2022 Nursing Count Last Ordered Date First Orde red Date HEIGHT AND WEIGHT 1 12/14/2022 PT Count Last Ordered Date First Orde red Date PT EVALUATION AND TREAT 1 12/16/2022 Admission Count Last Ordered Date First Orde red Date ADMIT TO INPATIENT 1 12/14/2022 Transfer Count Last Ordered Date First Orde red Date TRANSFER PATIENT 1 12/15/2022 ED BED REQUEST 1 12/14/2022 Discharge Count Last Ordered Date First Orde red Date DISCHARGE PATIENT 1 12/18/2022 documented in this encounter Additional Health Concerns Infection Onset Date Last Indicated Resolved Time R/O COVID-19 12/14/2022 12/14/2022 12/14/2022 9:10 EST documented as of this encounter Care Teams Strategic Planner Relationship Specialty Start Date End Date Emigdio Veronica MD [address] [place] [phone] PCP - General Internal Medicine - Primary Care 05/22/20 02/21/24 documented as of this encounter
--- OUTSIDE RECORDS SUMMARY | 2024-11-22 16:59 | XMS_ITS | Encounter Summary ---
Author Organization [facility] Address [address] [place] [address] Care Team Providers Care Bending Roll Hand Name Role Phone Emigdio Veronica MD Primary Care Provider + Izabella Snodwen 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 Advised for her to call Tuesday after she has been discharged. * Telephone Encounter - Tiny Moss - 12/17/2022 0947 EST Requested Prescriptions Pending Prescriptions Disp Refills ??? oxyCODONE (ROXICODONE) 5 mg immediate release tablet 84 Tablet 0 Sig: Take 1 Tablet by mouth 3 times daily as needed for up to 28 days for Pain. Daily Max: 15 mg PATIENT is calling from the Hospital bed & states she's being discharged today. Pt states Hosp doc has increased her Oxy to Q4 but pt says she will only take 4QD & will be outbefore her due date [id number] - [address] Confirmed Pharmacy? Yes Patient out of medication? No Last Refill Date: 11-19-22 Refills left? (explain exceptions requiring early refill) No Recent Visits Date Type Provider Dept 11/25/22 Office Visit Emigdio Veronica MD [facility] [place] Adult Prim [facility] 09/29/22 Office Visit Emigdio Veronica MD [facility] [place] Adult Prim [facility] 09/17/22 Office Visit Emigdio Veronica MD [facility] Adult Prim Care 08/11/22 Office Visit Emigdio Veronica MD [facility] Adult Prim Care 07/29/22 Office Visit Scottie Campuzano PA-C [facility] Adult Prim Care 07/16/22 Office Visit Scottie Campuzano PA-C [facility] Adult Prim Care 06/25/22 Office Visit Emigdio Veronica MD [facility] [place] Adult Prim Care 05/20/22 Office Visit Nguyen Nolasco NP [facility] Adult Prim Care 02/17/22 Office Visit Emigdio Veronica MD [facility] Adult Prim Care 01/27/22 Office Visit Osmany Matthews MD [facility] Adult Prim Care Showing recent visits within past 540 days with a meds authorizing provider and meeting all other requirements Future Appointments Date Type Provider Dept 01/21/23 Appointment Emigdio Veronica MD [facility] Adult Prim Care Showing future appointments within next 150 days with a meds authorizing provider and meeting all other requirements Future appointment: Already Scheduled Tiny Moss 12/17/2022 9:45 documented in this encounter Plan of Treatment Upcoming Encounters Date Type Department Care Team (Late st Contact Info) Description 01/04/2025 13:00 EST Office Visit [facility] Ophthalmology [address] [phone] Gagandeep Rome MD [address] [place] [address], [facility] [address] [place] [phone] 02/11/2025 13:30 EDT Telemedicine [facility] Hematology & Oncology [address] [phone] Dana Padilla MD [address] [place] [address], [facility] [address] [place] [address] documented as of this encounter Visit Diagnoses Not on filedocumented in this encounter Additional Health Concerns Infection Onset Date Last Indicated Resolved Time R/O COVID-19 02/23/2023 02/23/2023 02/23/2023 7:15 EDT R/O COVID-19 04/28/2023 04/28/2023 04/29/2023 0:02 EDT R/O COVID-19 09/07/2023 09/07/2023 09/07/2023 22:1 6 EDT documented as of this encounter Care Teams Bending Roll Hand Relationship Specialty Start Date End Date Emigdio Veronica MD [address] [place] [phone] PCP - General Internal Medicine - Primary Care 05/22/20 02/21/24 None, Provider PCP - General 02/24/24 03/18/24 Gabriel Gandara PA PCP - General 03/19/24 09/11/24 Mirna Guerrero PA [address] [place] [address] PCP - General 09/12/24 Izabella Snowden, FILM REPLACEMENT ORDERER 1 [facility], [address] [place] [phone] Value Advisor 02/21/23 05/03/24 documented as of this encounter
--- OUTSIDE RECORDS SUMMARY | 2024-11-22 16:59 | XMS_ITS | Encounter Summary ---
Author Organization [facility] Address [address] [place] [address] Care Team Providers Care Textile Science Technician Name Role Phone Emigdio Veronica MD Primary Care Provider + Reason for Referral * Consult (Routine/Next Available) - Closed Specialty Diagnoses / Procedures Referred By [facility] t Referred To Contact Radiology Diagnoses Iliac lymphadenopathy Emigdio Veronica MD Phone: tel: fax: [address] [address] Phone: tel: fax: Referral ID Status Reason Start Date Expiration Date V isits Requested Visits Authorized [id number] Closed Specialty Services Required 12/13/2022 1 0 Question Answer Reason for Request: Biopsy of left illiac lymph node noted on recent PET/CT concerning for possible malignancy per radiology * Referral (Emergency) - Closed Specialty Diagnoses / Procedures Referred By Contact Referred To Contact Gastroenterology and Hepatology Diagnoses Abnormal gastrointestinal positron emission tomography (PET) scan Iliac lymphadenopathy Procedures COLONOSCOPY DC COLONOSCOPY FLX DX W/COLLJ SPEC WHEN PFRMD DC COLONOSCOPY W/BIOPSY SINGLE/MULTIPLE DC COLSC FLX W/REMOVAL LESION BY HOT BX FORCEPS ANESTHESIA LOWER INTST ENDOSCOPIC PX NOS Emigdio Veronica MD Phone: tel:[phone] fax:[phone] [facility] Gastroenterology - Main [address] [address] Phone: tel: fax: Referral ID Status Reason Start Date Expiration Date Visits Re quested Visits Authorized [id number] Closed 01/28/2023 04/28/2023 1 1 Reason for Visit * Reason Onset Date Comments Diagnostic Imaging Report 12/13/2022 Encounter Details Date Type Department Care Team (Late st Contact Info) Description 12/13/2022 Refill [facility] Adult Primary Care - [place] [address] [place] [address] Emigdio Veronica MD [address] [place] [address] Diagnostic Imaging Report Social History Tobacco [...] 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 4000 mL 12/13/2022 3 documented in this encounter Miscellaneous Notes * Telephone Encounter - Emigdio Veronica MD - 12/13/2022 1219 EST Interventional radiology referral placed Colonoscopy request placed. * Telephone Encounter - Jes Mayorga RN - 12/13/2022 1145 EST Spoke with patient. Patient would like to proceed with the biopsy. Patient states she is willing to proceed with colonoscopy as well. Patient states sometimes her back pain is quite severe. The patient indicates understanding of these issues and agrees with the plan. No barriers. * Telephone Encounter - Emigdio Veronica MD - 12/13/2022 1001 EST Triage can we reach out to Tara regarding her recent PET/CT results. There were some significant findings. The scan detected uptake in a left illiac lymph node that was mildly enlarged. It is unclear what the source of this enlargement or uptake is, but radiology is recommending we pursue either biopsy orrepeat MRI in 3 months. In addition due to focal metabolic activity around this same lymph node radiology is also recommending we arrange a colonoscopy to evaluate for any colon disease related to this abnormality. The scan also identified an incidental finding of a 1.4 cm left adrenal gland nodule. Radiology recommends we consider obtaining an MRI in the near future of this nodule to better classify it's features. Notably the reason for the scan, to follow-up on a nodule in the lung base has now resolved. Can we determine with Tara the following? 1. Would she prefer pursuing biopsy or a repeat MRI of this enlarged lymph node identified on PET. If biopsy I can put in a request with interventional radiology. If MRI I can place the order now forcompletion in three months 2. Do I have her permission to order a colonoscopy per radiology recommendations 3. Depending on hr preference for biopsy or MRI we can discuss when and how we want to follow-up the adrenal finding, but this is less of a priority then the other findings. documented in this encounter Plan of Treatment Upcoming Encounters Date Type Department Care Team (Late st Contact Info) Description 01/04/2025 13:00 EST Office Visit [facility] Ophthalmology - [address] [phone] Gagandeep Rome MD [address] [place] [address] [address] [place] [address] 02/11/2025 13:30 EDT Telemedicine [facility] Hematology & Oncology [address] [address] Dana Padilla MD [address] [place] [address], [facility] [address] [place] [address] Scheduled Orders Name Type Priority Associated Diagnoses Orde r Schedule COLONOSCOPY GI Routine Abnormal gastrointestinal positron emission tomography (PET) scan Iliac lymphadenopathy Expected: 12/13/2022 (Approximate), Expires: 06/12/2024 Scheduled Referrals Name Type Priority Associated Diagnoses Orde r Schedule AMB CONS/FOLLOW UP INTERVENTIONAL RADIOLOGY Outpatient Referral Routine/Next Available Iliac lymphadenopathy Expected: 12/20/2022 (Approximate) , Expires: 12/13/2023 documented as of this encounter Visit Diagnoses Diagnosis Abnormal gastrointestinal positron emission tomography (PET) scan- Primary Nonspecific abnormal results of other specified function study Iliac lymphadenopathy documented in this encounter Additional Health Concerns Infection Onset Date Last Indicated Resolved Time R/O COVID-19 12/14/2022 12/14/2022 12/14/2022 9:10 EST documented as of this encounter Care Teams Textile Science Technician Relationship Specialty Start Date End Date Emigdio Veronica MD [address] [place] [phone] PCP - General Internal Medicine - Primary Care 05/22/20 02/21/24 documented as of this encounter
--- OUTSIDE RECORDS SUMMARY | 2024-11-22 16:59 | XMS_ITS | Encounter Summary ---
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 Target goal of two bowel movements daily). 900 mL 12/02/2022 3 documented in this encounter Miscellaneous Notes * Telephone Encounter - Emigdio Veronica MD - 12/02/2022 1241 EST Understood we will try lactulose solution as an alternative. Signed * Telephone Encounter - Cris Copeland - 11/29/2022 1345 EST Denied: Why did we deny your request? We denied this request under Medicare Part D because: The information provided by your prescriber did not meet the requirements for covering this medication (prior authorization). Your plan does not allow coverage of this medication based on your prescriber answering No to the following question(s): Has the patient experienced an inadequate treatment response to a one month trial of generic lactulose solution? Has the patient experienced an intolerance that would prohibit a one month trial of generic lactulose solution? Does the patient have a contraindication to an inactive ingredient which is not contained in the requested drug? * Telephone Encounter - Cris Copeland - 11/25/2022 1702 EST epa requested for lactulose documented in this encounter Plan of Treatment Upcoming Encounters Date Type Department Care Team (Late st Contact Info) Description 01/04/2025 13:00 EST Office Visit [facility] [place] [address] Gagandeep Rome MD [address] [place] [address], [address] [place] [phone] 02/11/2025 13:30 EDT Telemedicine [facility] Hematology & Oncology - [address] [phone] Dana Padilla MD [address] [facility] 2 [place] [address] documented as of this encounter Visit Diagnoses Not on filedocumented in this encounter Discontinued Medications Medication Sig Discontinue Reason Start Date End Da te lactulose (CEPHULAC) 20 gram packet Take 1 Packet by mouth daily. Alternate therapy 11/25/2022 12/02/2022 documented as of this encounter Care Teams Weatherization Technician Relationship Specialty Start Date End Date Emigdio Veronica MD [address] [place] [phone] PCP - General Internal Medicine - Primary Care 05/22/20 02/21/24 documented as of this encounter
--- OUTSIDE RECORDS SUMMARY | 2024-11-22 16:59 | XMS_ITS | Encounter Summary ---
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 documented in this encounter Plan of Treatment Upcoming Encounters Date Type Department Care Team (Late st Contact Info) Description 01/04/2025 13:00 EST Office Visit [facility] Ophthalmology - [address] [phone] Gagandeep Rome MD [address] [place] [address] 5 [place] [phone] 02/11/2025 13:30 EDT Telemedicine [facility] Hematology & Oncology - [address] [phone] Dana Padilla MD [address] [place] [address], [facility] 2 [place] [address] documented as of this encounter Visit Diagnoses Not on filedocumented in this encounter Care Teams Pressurised Container Filler Relationship Specialty Start Date End Date Emigdio Veronica MD [address] [place] [phone] PCP - General Internal Medicine - Primary Care 05/22/20 02/21/24 documented as of this encounter
--- OUTSIDE RECORDS SUMMARY | 2024-11-22 16:59 | XMS_ITS | Encounter Summary ---
Author Organization [facility] Address [address] [place] [address] Care Team Providers Care Java Web User Interface Developer Name Role Phone Emigdio Veronica MD Primary Care Provider + Izabella Snowden [facility] Unavailable None, Provider Primary Care Provider Gabriel Wei Primary Care Provider [phone] Mirna Guerrero Primary Care Provider + Reason for Visit * Reason Comments Medications Refill Encounter Details Date Type Department Care Team (Late st Contact Info) Description 11/18/2022 Refill [facility] Adult Primary Care - [place] [address] [place] [address] Emigdio Veronica MD [address] [place] [address] Medications Refill Social History Tobacco [...] 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 spironolactone (ALDACTONE) 100 mg tablet [Pharmacy Med Name: SPIRONOLACTONE 100 MG TABLET] 90 Tablet 1 Sig: TAKE 1 TABLET BY MOUTH EVERY DAY ??? gabapentin (NEURONTIN) 100 mg capsule [Pharmacy Med Name: GABAPENTIN 100 MG CAPSULE] 60 Capsule0 Sig: TAKE 1 CAPSULE BY MOUTH EVERYDAY AT BEDTIME [facility]/pharmacy #[id number] - [address] Confirmed Pharmacy? Yes Patient out of medication? Unknown Last Refill Date: 08/19/22 Refills left? (explain exceptions requiring early refill) No Recent Visits Date Type Provider Dept 09/29/22 Office Visit Emigdio Veronica MD [facility] Adult Prim Care 09/17/22 Office Visit Emigdio Veronica MD [facility] Adult Prim Care 08/11/22 Office Visit [facility] 07/29/22 Office Visit Scottie Campuzano PA-C [facility] Adult Prim Care 07/16/22 Office Visit Scottie Campuzano PA-C [facility] Adult Prim Care 06/25/22 Office Visit Emigdio Veronica MD [facility] Adult Prim Care 05/20/22 Office Visit Nguyen Nolasco NP [facility] Adult Prim Care 02/17/22 Office Visit Emigdio Veronica MD [facility] Adult Prim Care 01/27/22 Office Visit Osmany Matthews MD [facility] [place] Adult Prim Care 11/25/21 Office Visit Emigdio Vreonica MD [facility] Adult Prim Care Showing recent visits within past 540 days with a meds authorizing provider and meeting all other requirements Future Appointments Date Type Provider Dept 11/25/22 Appointment Emigdio Veronica MD [facility] Adult Prim Care Showing future appointments within next 150 days with a meds authorizing provider and meeting all other requirements Future appointment: Already Scheduled FATOUMATA FOWLER RN 11/19/2022 8:50 documented in this encounter Plan of Treatment Upcoming Encounters Date Type Department Care Team (Late st Contact Info) Description 01/04/2025 13:00 EST Office Visit [facility] Ophthalmology - [address] [address] Gagandeep Rome MD [address] [place] [address], [facility] [address] [place] [phone] 02/11/2025 13:30 EDT Telemedicine [facility] Hematology & Oncology [address] [phone] Dana Padilla MD [address] [place] [address] 2 [place] [phone] documented as of this encounter Visit Diagnoses Not on filedocumented in this encounter Discontinued Medications Medication Sig Discontinue Reason Start Date End Da te spironolactone (ALDACTONE) 100 mg tablet Take 1 Tablet by mouth daily for 90 days. 08/19/2022 11/19/2022 documented as of this encounter Additional Health Concerns Infection Onset Date Last Indicated Resolved Time R/O COVID-19 12/14/2022 12/14/2022 12/14/2022 9:10 EST R/O COVID-19 02/23/2023 02/23/2023 02/23/2023 7:15 EDT R/O COVID-19 04/28/2023 04/28/2023 04/29/2023 0:02 EDT R/O COVID-19 09/07/2023 09/07/2023 09/07/2023 22:1 6 EDT documented as of this encounter Care Teams Java Web User Interface Developer Relationship Specialty Start Date End Date Emigdio Veronica MD [address] [place] [phone] PCP - General Internal Medicine - Primary Care 05/22/20 02/21/24 None, Provider PCP - General 02/24/24 03/18/24 Gabriel Gandara PA PCP - General 03/19/24 09/11/24 Mirna Guerrero PA [address] [place] [id number] PCP - General 09/12/24 Izabella Snowden LICSW 1 [facility], 3rd [place] [address] Shuttle Buggy Operator 02/21/23 05/03/24 documented as of this encounter
--- OUTSIDE RECORDS SUMMARY | 2024-11-22 16:59 | XMS_ITS | Encounter Summary ---
Author Organization [facility] Address [address] [place] [address] Care Team Providers Care Auto Claims Adjuster Name Role Phone Emigdio Veronica MD Primary Care Provider + Reason for Visit * Reason Comments Titration Polysomnogram * Sleep Study (See Order Priority) - Order Cancelled Specialty Diagnoses / Procedures Referred By Contkanchan t Referred To Contact Sleep Medicine Diagnoses Obstructive sleep apnea Nocturnal hypoxemia Procedures THERAPEUTIC POLYSOMNOGRAM (CPAP/BIPAP TITRATION) NM POLYSOM 6/>YRS SLEEP W/CPAP 4/> ADDL SURJIT Vivian Correia MD Phone: tel: fax: [facility] - [address] [address] Phone: tel: fax: Referral ID Status Reason Start Date Expiration Date Visits Requested Visits Authorized [id number] Order Cancelled Specialty Services Required 2 11/20/2022 1 1 Encounter Details Date Type Department Care Team (Late st Contact Info) Description 11/26/2022 21:30 EST Office Visit [facility] - [facility] [address] [place] [address] Polysomnogram, [facility] Snoring (Primary Dx); Obstructive sleep apnea Social History Tobacco Use Types Packs/Day Years [...] 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 Answer Date of Assessment Author No 06/16/2022 0:00 EDT Soila Murphy, RN * Are you blind or do [...] documented in this encounter Progress Notes * Vivian Black MD - 11/26/20222129 EST Titration Polysomnogram on 11/26/2022 SUMMARY This was an attended therapeutic polysomnography performed in the sleep lab Therapeutic modalities used: CPAP Sleep architecture and sleep continuity Time of lights off was 10;42 sleep onset latency was 0 min which is short. REM sleep latency was 109 min, which is normal. Patient slept in supine position entire night. increased amout of N1 sleep at 37 % was noted. decreased amount of REM sleep at 15% and decreased amount of N3 sleep at 1% was captured. Respiration during sleep Patient was fitted with F20 small mask prior to the onset of titration. CPAP pressures were titrated between 5-13 cm H2O. Pressures between 12-13 cm H2O effectively controlled respiratory events during REM and non-REM sleep, with resultant AHI of 2 and associated averageoxygen saturation of 90%. Lower pressures tried or less effective, with 11 cm h20 being effective during non-REM sleep, but insufficient during REM. Sleep-related hypoxia was observed with total of >13 minutes of SPO2 below 88% . EMG Periodic leg movement index was 0/h, with PLMS with arousal index of 0/h which is normal. EEG On this limited montage no epileptiform activity was noted EKG On single EKG lead no significant arrhythmias were observed; average heart rate was 74. IMPRESSION Successful therapeutic polysomnographic testing demonstrating evidence of excellent control of sleep disordered breathing with CPAP modality with pressure at 12 cm H2O. RECOMMENDATIONS: - The patient will be notified by the staff at the [facility] of the results of the test. -aPAP with a pressure range of 10-15 cm H20 of water will be prescribed. - follow up of compliance and effectiveness of the therapy is required. Vivian Black [facility] Department of Neurology Sleep Program Portions of this document may contain text elements generated through computerized voice recognition technology. Undetected computer-generated word errors are possible. Please notify the signing provider if clarification or correction is needed. This Sleep Study Report (including details) can be viewed under the Procedures Tab in the EMR ([employer]) as a scanned file attachment. If the Sleep Study Report cannot be accessed, a copy can be obtainedby contacting [facility] at [phone]. documented in this encounter Plan of Treatment Upcoming Encounters Date Type Department Care Team (Late st Contact Info) Description 01/04/2025 13:00 EST Office Visit [facility] Ophthalmology - [address] [phone] Gagandeep Rome MD [address] [place] [address] 5 [place] [phone] 02/11/2025 13:30 EDT Telemedicine [facility] Hematology & Oncology - [address] [address] Dana Padilla MD [address] [place] [address], [address] [place] [phone] documented as of this encounter Procedures Procedure Name Priority Date/Time Associated Diagnosis Comments SLEEP STUDY REPORT - SCANNED 12/07/2022 18:58 EST documented in this encounter Results * SLEEP STUDY REPORT - SCANNED (12/07/2022 18:58 EST) 12/07/2022 18:5 8 EST us Scan 2 Education And Training Manager PROCEDURE/MINOR SURGICAL OR DERABLES Final Result documented in this encounter Visit Diagnoses Diagnosis Snoring- Primary Other dyspnea and respiratory abnormality Obstructive sleep apnea Obstructive sleep apnea (adult) (pediatric) documented in this encounter Orders Equipment Count Last Ordered Date First Orde red Date CPAP/BIPAP MACHINE ORDER 1 12/07/2022 documented in this encounter Care Teams Auto Claims Adjuster Relationship Specialty Start Date End Date Emigdio Veronica MD [address] [place] [phone] PCP - General Internal Medicine - Primary Care 05/22/20 02/21/24 documented as of this encounter
--- OUTSIDE RECORDS SUMMARY | 2024-11-22 16:59 | XMS_ITS | Encounter Summary ---
Author Organization [facility] Address [address] [place] [address] Care Team Providers Care Hardware Installation Coordinator Name Role Phone Emigdio Veronica MD Primary Care Provider + Reason for Referral * Radiology Services (Routine/Next Available) - Authorization Not Required Specialty Diagnoses / Procedures Referred By Contac t Referred To Contact Nuclear Medicine Diagnoses Lung nodule Procedures PET CT EYE TO THIGH PET CT LIMITED Emigdio Veronica MD Phone: tel: fax: [facility] Referral ID Status Reason Start Date Expiration Date Visits Requested Visits Authorized [id number] Authorization Not Required 09/29/2022 1 1 Reason for Visit * Radiology Services (Routine/Next Available) - Authorization Not Required Specialty Diagnoses / Procedures Referred By Contac t Referred To Contact Nuclear Medicine Diagnoses Lung nodule Procedures PET CT EYE TO THIGH PET CT LIMITED Emigdio Veronica MD Phone: tel: fax: [facility] Referral ID Status Reason Start Date Expiration Date Visits Requested Visits Authorized [id number] Authorization Not Required 09/29/2022 1 1 Encounter Details Date Type Department Care Team (Latest Contact Info) Description 12/07/2022 9:54 EST - 12/07/2022 23:59 EST Hospital Encounter [facility] Radiology Nuclear [place] [address] Lung nodule Discharge Disposition: Home or Self Care Social [...] Industry 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 Daily Max: 15 mg 84 Tablet 11/24/2022 3 pantoprazole (PROTONIX) 40 mg tablet Take 1 Tablet by mouth 2 times daily. 180 Tablet 3 06/21/2022 3 sertraline (ZOLOFT) 50 mg tablet Take [...] 08/26/2022 3 documented as of this encounter Discharge Disposition Disposition Code Departure Means Destination Home or Self Care documented in this encounter Plan of Treatment Upcoming Encounters Date Type Department Care Team (Late st Contact Info) Description 01/04/2025 13:00 EST Office Visit [facility] Ophthalmology - [address] [phone] Gagandeep Rome MD [address] [place] [address] 5 [place] [phone] 02/11/2025 13:30 EDT Telemedicine [facility] Hematology & Oncology [address] [phone] Dana Padilla MD [address] [place] [address] [address] [place] [phone] documented as of this encounter Procedures Procedure Name Priority Date/Time Associated Diagnosis Comments PET CT EYE TO THIGH Routine 12/07/2022 1 3:19 EST Lung nodule POCT GLUCOSE, INTERFACED Routine 12/07/2022 10:41 EST documented in this encounter Results * PET CT EYE TO THIGH (12/07/2022 13:19 EST) Anatomical Region Laterality Modality Body Positron Emissio n Tomography (PET) 12/07/2022 15:3 6 EST Impressions 12/07/2022 15:36 EST 1. ??Previously noted nodule in the left lung base has resolved consistent with a benign process. 2. ??FDG avid mildly enlarged right external iliac lymph node which is slightly larger compared to 2015 (SUV max 14.13). This is nonspecific but the intense uptake is concerning for underlying malignancy. If biopsy is not pursued, follow-up MRI pelvis is recommended in 3 months. 3. ??Scattered focal metabolic activity particularly in near proximity to aforementioned abnormal lymph node is indeterminate. Further evaluation with colonoscopy is recommended. 4. ??Left adrenal 1.4 cm nodule indeterminate by CT criteria. It can be evaluated with dedicated MR abdomen and pelvis. 5. ??Cirrhosis, portal hypertension, splenomegaly with evolving infarct and chronic portal vein thrombosis. 6. ??Prior hysterectomy and cholecystectomy. I have personally reviewed the images and the above interpretation and agree with the findings. Narrative 12/07/2022 15:[address] EYE TO THIGH 12/07/2022 10:30 AM Signs and Symptoms: ??Fatigue, chronic dyspnea, history of tobacco use, history of unchanged 2 cm lung nodule of left lower lobe noted on CT abdomen radiology recommending PET CT for evaluation Comparison: CT abdomen pelvis 09/20/2022, 06/09/2022 previously, and 07/12/2015. Technique: Approximately 103 minutes following the IV injection of 9.01 mCi of [id number], 3D TOF PET imaging was obtained from the skull base to upper thighs using a Evalve digital ??PET/CT system. ??The blood glucose level prior to injection was 83 mg/dl. ??The injection site was the left forearm. Oral contrast was not administered. Findings: HEAD/NECK: No suspicious FDG uptake or lymphadenopathy. There is multifocal uptake in the maxilla and mandible related to dental disease. No evident intracranial abnormality. CHEST: No suspicious FDG uptake or lymphadenopathy. No suspicious pulmonary nodules allowing for low dose non breathhold technique. There is a small polygonal intrapulmonary lymph node along the left major fissure. The previously seen nearly 2 cm nodule in the left lung base has resolved consistent with a benign process. ABDOMEN/PELVIS: There is focal intense metabolic activity in a mildly prominent right external iliac / obturator lymph node which measures 10 mm short axis (calculated SUV max 14.13). This lymph node is minimally larger compared to June 2015. Increased uptake is also noted within a nonenlarged more anterior external iliac chain lymph node with SUV max of 5.04 (CT series 202 image 703). No additional enlarged or FDG avid lymphadenopathy. There is a 1.4 cm left adrenal nodule demonstrating SUV max of 5.4. Scattered focal metabolic activity in bowel particularly in close proximity to the abnormal metabolically active lymph node (PET series 6658; image 61). Redemonstrated sequela of cirrhosis and chronic portal venous thrombosis with expanded main portal vein, poorly evaluated without the benefit of intravenous contrast. There is a hypoattenuating infarcted region in the spleen, status post coil embolization, similar compared to prior imaging. A few scattered noninflamed colonic diverticula. Prior hysterectomy, cholecystectomy and ventral hernia repair. MUSCULOSKELETAL: No suspicious lytic, blastic, or FDG avid osseous lesions. Multilevel degenerative changes in the spine. Periarticular uptake in the right shoulder is likely degenerative. There is asymmetric uptake in the left common hamstrings tendon suggestive of tendinosis. Procedure Note Sierra Ramos MD - 12/07/[address] EYE TO THIGH 12/07/2022 10:30 AM Signs and Symptoms: Fatigue, chronic dyspnea, history of tobacco use,history of unchanged 2 cm lung nodule of left lower lobe noted on CTabdomen radiology recommending PET CT for evaluation Comparison: CT abdomen pelvis 09/20/2022, 06/09/2022 previously, and07/12/2015. Technique: Approximately 103 minutes following the IV injection of 9.01 mCi [id number], 3D TOF PET imaging was obtained from the skullbase to upper thighs using a Evalve digital PET/CT system. Theblood glucose level prior to injection was 83 mg/dl. The injection sitewas the left forearm. Oral contrast was not administered. Findings: HEAD/NECK: No suspicious FDG uptake or lymphadenopathy. There is multifocal uptake inthe maxilla and mandible related to dental disease. No evidentintracranial abnormality. CHEST: No suspicious FDG uptake or lymphadenopathy. No suspicious pulmonary nodules allowing for low dose non breathholdtechnique. There is a small polygonal intrapulmonary lymph node along theleft major fissure. The previously seen nearly 2 cm nodule in the leftlung base has resolved consistent with a benign process. ABDOMEN/PELVIS: There is focal intense metabolic activity in a mildly prominent rightexternal iliac / obturator lymph node which measures 10 mm short axis(calculated SUV max 14.13). This lymph node is minimally larger comparedto June 2015. Increased uptake is also noted within a nonenlarged moreanterior external iliac chain lymph node with SUV max of 5.04 (CT [id number] image 703). No additional enlarged or FDG avid lymphadenopathy. There is a 1.4 cm left adrenal nodule demonstrating SUV max of 5.4.Scattered focal metabolic activity in bowel particularly in closeproximity to the abnormal metabolically active lymph node (PET [id number]; image 61). Redemonstrated sequela of cirrhosis and chronic portal venous thrombosiswith expanded main portal vein, poorly evaluated without the benefit ofintravenous contrast. There is a hypoattenuating infarcted region in thespleen, status post coil embolization, similar compared to prior imaging.A few scattered noninflamed colonic diverticula. Prior hysterectomy,cholecystectomy and ventral hernia repair. MUSCULOSKELETAL: No suspicious lytic, blastic, or FDG avid osseous lesions. Multileveldegenerative changes in the spine. Periarticular uptake in the rightshoulder is likely degenerative. There is asymmetric uptake in the leftcommon hamstrings tendon suggestive of tendinosis. IMPRESSION 1. Previously noted nodule in the left lung base has resolved consistentwith a benign process. 2. FDG avid mildly enlarged right external iliac lymph node which isslightly larger compared to 2015 (SUV max 14.13). This is nonspecific butthe intense uptake is concerning for underlying malignancy. If biopsy isnot pursued, follow-up MRI pelvis is recommended in 3 months. 3. Scattered focal metabolic activity particularly in near proximity toaforementioned abnormal lymph node is indeterminate. Further evaluationwith colonoscopy is recommended. 4. Left adrenal 1.4 cm nodule indeterminate by CT criteria. It can beevaluated with dedicated MR abdomen and pelvis. 5. Cirrhosis, portal hypertension, splenomegaly with evolving infarct andchronic portal vein thrombosis. 6. Prior hysterectomy and cholecystectomy. I have personally reviewed the images and the above interpretation andagree with the findings. us Emigdio Veronica MD [facility] [place] ORDERABLES Final Result * POCT GLUCOSE, INTERFACED (12/07/2022 10:41 EST) Glucose, POC 83 70 - 100 mg/dL 12/07/2022 10:42 EST [facility] HN LAB POC COMMENT (GLUCOSE) Test Performed by Nursing Services 12/07/2022 10:42 EST [facility] Blood CAPILLARY BLOOD / Unknown 12/07/2022 10:41 EST 12/07/2022 10:42 EST us Provider Unknown MD POINT OF CARE TEST ORDERABLE S Final Result [facility] [address] [place] [address] documented in this encounter Visit Diagnoses Diagnosis Lung nodule Solitary pulmonary nodule documented in this encounter Administered Medications Inactive Administered Medications - up to 3 most recent administrations Medication Order MAR Action Action Date Dose Rate Site fludeoxyglucose (F-18) FDG injection 15 millicurie 15 millicurie, radiopharm IV, NOW X1, 1 dose, On Tue12/07/22 at 1045, Routine, Imaging Protocol Orders Given 12/07/2022 11:07 EST 9.01 millicuries documented in this encounter Orders Medications Ordered That Luc ht Not Have Been Administered Count Last Ordered Date First Ordered Date fludeoxyglucose (F-18) FDG i njection 15 millicurie 1 12/07/2022 IV Count Last Ordered Date First Orde red Date IV REQUEST 1 12/07/2022 documented in this encounter Care Teams Hardware Installation Coordinator Relationship Specialty Start Date End Date Emigdio Veronica MD [address] [place] [address] PCP - General Internal Medicine - Primary Care 05/22/20 02/21/24 documented as of this encounter
--- OUTSIDE RECORDS SUMMARY | 2024-11-22 17:00 | XMS_ITS | Encounter Summary ---
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 Spasms help mostly in the morning. Once moves around subsides. Patient states that since taking medication for spasms, cyclobenzaprine, gabapentin and pain medication that her spasms have subsided. Patient has follow up scheduled with pcp in November. Earlier appointment not needed. The patient indicates understanding of these issues and agrees with the plan. * Telephone Encounter - Noemi Hall - 11/03/2022 1320 EST Reason for Call: Spasms Summary/Symptoms: patient has been up the last couple of nights with legs spasms and spasms in hands. Happening during the day as well. Mostly on left side. Good news, back pain has been gone for a week Onset and Duration: last couple days/nights Does the patient have a computer, laptop or smart phone with high speed & video capability? N/A If so, would they be interested in doing a video visit via [employer]? N/A Appointment Offered? No Noemi Hall 11/03/2022 13:20 documented in this encounter Plan of Treatment Upcoming Encounters Date Type Department Care Team (Late st Contact Info) Description 01/04/2025 13:00 EST Office Visit [facility] Ophthalmology - [address] 158651 Gagandeep Rome MD [address] [place] [address], Level 5 [place] [phone] 02/11/2025 13:30 EDT Telemedicine [facility] Hematology & Oncology - [address] [phone] Dana Padilla MD [address] [facility], Level 2 [place] [address] documented as of this encounter Visit Diagnoses Not on filedocumented in this encounter Historical Medications * This list may reflect changes made after this encounter. Medication Sig Dispense Quantity Refills Last Filled Start D ate End Date raNITIdine (ZANTAC) 150 mg tablet 11/25/2022 fluticasone propionate (FLOVENT DISKUS) 100 mcg/actuation blister with device 09/12/2024 cyclobenzaprine (FLEXERIL) 5 mg tablet 11/09/2022 amitriptyline (ELAVIL) 10 mg tablet 03/2023 ALPRAZolam (XANAX) 0.5 mg tablet 11/25/2022 added in this encounter Care Teams Instructor Business Education Relationship Specialty Start Date End Date Emigdio Veronica MD [address] [place] [phone] PCP - General Internal Medicine - Primary Care 05/22/20 02/21/24 documented as of this encounter
--- OUTSIDE RECORDS SUMMARY | 2024-11-22 17:00 | XMS_ITS | Encounter Summary ---
Author Organization [facility] Address [address] [place] [address] Care Team Providers Care Chief Commercial Officer Name Role Phone Emigdio Veronica MD Primary Care Provider + Izabella Snowden [facility] Unavailable None, Provider Primary Care Provider Gabriel Wei Primary Care Provider Mirna Guerrero Primary Care Provider + Reason for Visit * Reason Comments Medications Refill Encounter Details Date Type Department Care Team (Late st Contact Info) Description 10/21/2022 Refill [facility] Adult Primary Care - [place] 2 [place] [address] Nguyen Nolasco, REGULATORY INTERN [address] [facility], Level 2 [place] [address] Medications Refill Social History Tobacco [...] Industry 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 90 Tablet 1 10/21/2022 04/26/2023 documented in this encounter Miscellaneous Notes * Telephone Encounter - Fatoumata Fowler RN - 10/21/2022 0948 EST Requested Prescriptions Pending Prescriptions Disp Refills ??? levothyroxine (SYNTHROID) 25 mcg tablet [Pharmacy Med Name: LEVOTHYROXINE 25 MCG TABLET] 90 Tablet 1 Sig: TAKE 1 TABLET BY MOUTH EVERY DAY BEFORE BREAKFAST [id number] [place], [place] - [address] [place] [address] Confirmed Pharmacy? Yes Patient out of medication? Unknown Last Refill Date: 05/20/22 Refills left? (explain exceptions requiring early refill) No Recent Visits Date Type Provider Dept 09/29/22 Office Visit Emigdio Veronica MD [facility] [place] Adult Prim Care 09/17/22 Office Visit Emigdio Veronica MD [facility] [place] Adult Prim Care 08/11/22 Office Visit Emigdio Veronica MD [facility] [place] Adult Prim Care 07/29/22 Office Visit Scottie Campuzano PA-C [facility] [place] Adult Prim Care 07/16/22 Office Visit Scottie Campuzano PA-C [facility] [place] Adult Prim Care 06/25/22 Office Visit Emigdio Veronica MD [facility] [place] Adult Prim Care 05/20/22 Office Visit Nguyen [facility]olasco [facility] Adult Prim [facility] 02/17/22 Office Visit Emigdio Ver[facility] MD [facility] Adult Prim [facility] 02/10/22 Office Visit Darlene Rollins NP [facility] [place] Adult Prim Care 01/27/22 Office Visit Osmany Matthews MD [facility] [place] Adult Prim Care Showing recent visits within past 540 days with a meds authorizing provider and meeting all other requirements Future Appointments Date Type Provider Dept 10/29/22 Appointment Emigdio Veronica MD [facility] [place] Adult Prim Care 11/25/22 Appointment Emigdio Veronica MD [facility] [place] Adult Prim Care Showing future appointments within next 150 days with a meds authorizing provider and meeting all other requirements Future appointment: Already Scheduled FATOUMATA FOWLER RN 10/21/2022 9:48 documented in this encounter Plan of Treatment Upcoming Encounters Date Type Department Care Team (Late st Contact Info) Description 01/04/2025 13:00 EST Office Visit [facility] Ophthalmology - [address] [phone] Gagandeep Rome MD [address] [place] [address], [facility] 5 [place] [phone] 02/11/2025 13:30 EDT Telemedicine [facility] Hematology & Oncology [address] [phone] Dana Padilla MD [address] [place] [address] 2 [place] [phone] documented as of this encounter Visit Diagnoses Not on filedocumented in this encounter Discontinued Medications Medication Sig Discontinue Reason Start Date End Da te levothyroxine (SYNTHROID) 25 mcg tablet Take 1 Tablet by mouth daily before breakfast. 05/20/2022 10/21/2022 documented as of this encounter Additional Health Concerns Infection Onset Date Last Indicated Resolved Time R/O COVID-19 12/14/2022 12/14/2022 12/14/2022 9:10 EST R/O COVID-19 02/23/2023 02/23/2023 02/23/2023 7:15 EDT R/O COVID-19 04/28/2023 04/28/2023 04/29/2023 0:02 EDT R/O COVID-19 09/07/2023 09/07/2023 09/07/2023 22:1 6 EDT documented as of this encounter Care Teams Chief Commercial Officer Relationship Specialty Start Date End Date Emigdio Veronica MD [address] [place] [phone] PCP - General Internal Medicine - Primary Care 05/22/20 02/21/24 None, Provider PCP - General 02/24/24 03/18/24 Gabriel Gandara PA PCP - General 03/19/24 09/11/24 Mirna Guerrero PA [address] [place] [address] PCP - General 09/12/24 Izabella Snowden, HOME ECONOMICS EXTENSION WORKER 1 Pending sale to [facility], 3rd [place] [phone] Booster Pump Oiler 02/21/23 05/03/24 documented as of this encounter
--- OUTSIDE RECORDS SUMMARY | 2024-11-22 17:00 | XMS_ITS | Encounter Summary ---
Author Organization [facility] Address [address] [place] [address] Care Team Providers Care Heat And Frost Insulator Name Role Phone Emigdio Veronica MD Primary Care Provider + Izabella Snowden [facility] Unavailable None, Provider Primary Care Provider Gabriel Wei Primary Care Provider Mirna Guerrero Primary Care Provider + Reason for Visit * Reason Comments Medications Refill Encounter Details Date Type Department Care Team (Late st Contact Info) Description 10/19/2022 Refill [facility] Adult Primary Care - [place] 2 [place] [address] Emigdio Veronica MD 2 [place] [address] Medications Refill Social History Tobacco [...] 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 No / Unsure 09/20/2022 17:08 EDT documented as of this encounter Functional [...] HOURS NEEDED FOR NAUSEA 30 Tablet 1 10/20/2022 11/17/2022 documented in this encounter Miscellaneous Notes * Telephone Encounter - Noemi Hall - 10/19/2022 0949 EST Requested Prescriptions Pending Prescriptions Disp Refills ??? ondansetron (ZOFRAN) 4 mg tablet [Pharmacy Med Name: ONDANSETRON HCL 4 MG TABLET] 30 Tablet 1 Sig: TAKE 1 TABLET BY MOUTH EVERY 8 HOURS NEEDED FOR NAUSEA [id number] - [address] Confirmed Pharmacy? Yes Patient out of medication? No Last Refill Date: 08.16.22 Refills left? (explain exceptions requiring early refill) No Recent Visits Date Type Provider Dept 09/29/22 Office Visit Emigdio Veronica MD [facility] [place] Adult Prim Care 09/17/22 Office Visit Emigdio Veronica MD [facility] [place] Adult Prim Care 08/11/22 Office Visit Emigdio Veronica MD [facility] [place] Adult Prim Care 07/29/22 Office Visit Scottie Campuzano PA-C [facility] [place] Adult Prim Care 07/16/22 Office Visit Scottie Campuzano PA-C [facility] [place] Adult Prim Care 06/25/22 Office Visit Emigdio Veronica MD [facility] [place] Adult Prim Care 05/20/22 Office Visit Nguyen Nolasco, [facility] Adult Prim [facility] 02/17/22 Office Visit Emigdio Veronica MD [facility] [place] Adult Prim Care 02/10/22 Office Visit Darlene Rollins NP [facility] Adult Prim Care 01/27/22 Office Visit Osmany Matthews MD [facility] Adult Prim Care Showing recent visits within past 540 days with a meds authorizing provider and meeting all other requirements Future Appointments Date Type Provider Dept 10/29/22 Appointment Emigdio Veronica MD [facility] Adult Prim Care 11/25/22 Appointment Emigdio Veronica MD [facility] Adult Prim Care Showing future appointments within next 150 days with a meds authorizing provider and meeting all other requirements Future appointment: Already Scheduled Noemi Hall 10/19/2022 9:49 documented in this encounter Plan of Treatment Upcoming Encounters Date Type Department Care Team (Late st Contact Info) Description 01/04/2025 13:00 EST Office Visit [facility] Ophthalmology [address] [phone] Gagandeep Rome MD [address] [place] [address] 5 [place] [phone] 02/11/2025 13:30 EDT Telemedicine [facility] Hematology & Oncology [address] [phone] Dana Padilla MD [address] [place] [address] 2 [place] [address] documented as of this encounter Visit Diagnoses Not on filedocumented in this encounter Discontinued Medications Medication Sig Discontinue Reason Start Date End Da te ondansetron (ZOFRAN) 4 mg tablet Take 1 Tablet by mouth every 8 hours as needed for Nausea. 08/16/2022 10/20/2022 documented as of this encounter Additional Health Concerns Infection Onset Date Last Indicated Resolved Time R/O COVID-19 12/14/2022 12/14/2022 12/14/2022 9:10 EST R/O COVID-19 02/23/2023 02/23/2023 02/23/2023 7:15 EDT R/O COVID-19 04/28/2023 04/28/2023 04/29/2023 0:02 EDT R/O COVID-19 09/07/2023 09/07/2023 09/07/2023 22:1 6 EDT documented as of this encounter Care Teams Heat And Frost Insulator Relationship Specialty Start Date End Date Emigdio Veronica MD 2 [place] [phone] PCP - General Internal Medicine - Primary Care 05/22/20 02/21/24 None, Provider PCP - General 02/24/24 03/18/24 Gabriel Gandara PA PCP - General 03/19/24 09/11/24 Mirna Guerrero PA [address] [place] [address] PCP - General 09/12/24 Izabella Snowden LICSW 1 [facility], 3rd [place] [address] Belt Press Operator 02/21/23 05/03/24 documented as of this encounter
--- OUTSIDE RECORDS SUMMARY | 2024-11-22 17:00 | XMS_ITS | Encounter Summary ---
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 270 Capsule 1 10/04/2022 3 documented in this encounter Miscellaneous Notes * Telephone Encounter - Noemi Hall - 10/04/2022 1356 EST Requested Prescriptions Pending Prescriptions Disp Refills ??? gabapentin (NEURONTIN) 300 mg capsule 45 Capsule 0 Sig: Take 1 Capsule by mouth 3 times daily. [facility][id number] - [place], [place] - [address] [facility] Confirmed Pharmacy? Yes Patient out of medication? Yes: Needs Refill Now Last Refill Date: 09.08.22 Refills left? (explain exceptions requiring early refill) No Recent Visits Date Type Provider Dept 09/29/22 Office Visit Emigdio Veronica MD [facility] Adult Prim Care 09/17/22 Office Visit Emigdio Veronica MD [facility] Adult Prim Care 08/11/22 Office Visit Emigdio Veronica MD [facility] Adult Prim Care 07/29/22 Office Visit Scottie Campuzano PA-C [facility] Adult Prim Care 07/16/22 Office Visit Scottie Campuzano PA-C [facility] Adult Prim Care 06/25/22 Office Visit Emigdio Veronica MD [facility] Adult Prim Care 05/20/22 Office Visit Nguyen Nolasco NP [facility] Adult Prim Care 02/17/22 Office Visit Emigdio Veronica MD [facility] Adult Prim Care 02/10/22 Office Visit Darlene Rollins NP [facility] Adult Prim Care 01/27/22 Office Visit Osmany Matthews MD [facility] Adult Prim Care Showing recent visits within past 540 days with a meds authorizing provider and meeting all other requirements Future Appointments Date Type Provider Dept 10/29/22 Appointment Emigdio Veronica MD [facility] [place] Adult Prim Care 11/25/22 Appointment Emigdio Veronica MD [facility] [place] Adult Prim Care Showing future appointments within next 150 days with a meds authorizing provider and meeting all other requirements Future appointment: Already Scheduled Noemi Hall 10/04/2022 13:56 documented in this encounter Plan of Treatment Upcoming Encounters Date Type Department Care Team (Late st Contact Info) Description 01/04/2025 13:00 EST Office Visit [facility] Ophthalmology - [address] [phone] Gagandeep Rome MD [address] [place] [address] 5 [place] [phone] 02/11/2025 13:30 EDT Telemedicine [facility] Hematology & Oncology - [address] [phone] Dana Padilla MD [address] [place] [address] 2 [place] [address] documented as of this encounter Visit Diagnoses Not on filedocumented in this encounter Discontinued Medications Medication Sig Discontinue Reason Start Date End Da te gabapentin (NEURONTIN) 300 mg capsule Take 1 capsule by mouth 3 times daily. Reorder 09/08/2022 10/04/2022 documented as of this encounter Care Teams Production Engineer Relationship Specialty Start Date End Date Emigdio Veronica MD [address] [place] [phone] PCP - General Internal Medicine - Primary Care 05/22/20 02/21/24 documented as of this encounter
--- OUTSIDE RECORDS SUMMARY | 2024-11-22 17:00 | XMS_ITS | Encounter Summary ---
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 Daily Max: 15 mg 84 Tablet 09/29/2022 10/26/2022 documented in this encounter Miscellaneous Notes * Telephone Encounter - Emigdio Veronica MD - 09/23/2022 1655 EDT Per VPMS check the patient last filled her 28 day supply of oxycodone on 09/01/22. She was recentlyprovided 10 extra tablets for breakthrough pain related to a recent lower back pain exacerbation. We will return to 5 mg TID PRN for her next refill which should be due on 09/29/22 given her last fill. Prescribed. * Telephone Encounter - Zully Guerrier - 09/22/2022 1505 EDT Oxycodone [id number] - [address] Confirmed Pharmacy? Yes Patient out of medication? No, pt will be out of Oxycodone in a couple of days Last Refill Date: 09/17/2022 Refills left? (explain exceptions requiring early refill) No Recent Visits Date Type Provider Dept 09/17/22 Office Visit Emigdio Veronica MD [place] Adult Prim Care 08/11/22 Office Visit Emigdio Veronica MD [place] Adult Prim Care 07/29/22 Office Visit Scottie Campuzano PA-C [place] Adult Prim Care 07/16/22 Office Visit Scottie Campuzano PA-C [place] Adult Prim Care 06/25/22 Office Visit Emigdio Veronica MD [place] Adult Prim Care 05/20/22 Office Visit Nguyen Nolasco NP [place] Adult Prim Care 02/17/22 Office Visit Emigdio Veronica MD [place] Adult Prim Care 02/10/22 Office Visit Darlene Rollins NP [place] Adult Prim [facility] 01/27/22 Office Visit Osmany Matthews MD [place] Adult Prim Care 11/25/21 Office Visit Emigdio Veronica MD [place] Adult Prim Care Showing recent visits within past 540 days with a meds authorizing provider and meeting all other requirements Future Appointments Date Type Provider Dept 09/29/22 Appointment Emigdio Veronica MD [place] Adult Prim Care 11/25/22 Appointment Emigdio Veronica MD [place] Adult Prim Care Showing future appointments within next 150 days with a meds authorizing provider and meeting all other requirements Future appointment: Already Scheduled Zully Guerrier 09/22/2022 15:06 documented in this encounter Plan of Treatment Upcoming Encounters Date Type Department Care Team (Late st Contact Info) Description 01/04/2025 13:00 EST Office Visit [facility] Ophthalmology - [address] [phone] Gagandeep Rome MD [address] [place] [address], [facility] 5 [place] [phone] 02/11/2025 13:30 EDT Telemedicine [facility] Hematology & Oncology [address] [phone] Dana Padilla MD [address] [place] [address], [facility] 2 [place] [address] documented as of this encounter Visit Diagnoses Not on filedocumented in this encounter Care Teams Coder Operator Relationship Specialty Start Date End Date Emigdio Veronica MD [address] [place] [phone] PCP - General Internal Medicine - Primary Care 05/22/20 02/21/24 documented as of this encounter
--- OUTSIDE RECORDS SUMMARY | 2024-11-22 17:00 | XMS_ITS | Encounter Summary ---
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 In between when she called the on-call doctor and when I returned her phone call, she did receive a phone call back from Dr. Veronica's office and thus, no further intervention was warranted. documented in this encounter Plan of Treatment Upcoming Encounters Date Type Department Care Team (Late st Contact Info) Description 01/04/2025 13:00 EST Office Visit [facility] Ophthalmology - [address] 330391 Gagandeep Rome MD [address] [place] [address] 5 [place] [phone] 02/11/2025 13:30 EDT Telemedicine [facility] Hematology & Oncology - [address] [phone] Dana Padilla MD [address] [place] [address], [facility] 2 [place] [phone] documented as of this encounter Visit Diagnoses Not on filedocumented in this encounter Care Teams Metal Furniture Repairer Relationship Specialty Start Date End Date Emigdio Veronica MD 2 [place] [phone] PCP - General Internal Medicine - Primary Care 05/22/20 02/21/24 documented as of this encounter
--- OUTSIDE RECORDS SUMMARY | 2024-11-22 17:00 | XMS_ITS | Encounter Summary ---
Author Organization [facility] Address [address] [place] [address] Care Team Providers Care Tanker Serviceman Name Role Phone Emigdio Veronica MD Primary Care Provider + Izabella Snowden [facility] Unavailable [phone] None, Provider Primary Care Provider Gabriel Wei Primary Care Provider [phone] Mirna Guerrero Primary Care Provider + Reason for Visit * Reason Onset Date Comments Appointment Related 10/01/2022 Encounter Details Date Type Department Care Team (Late st Contact Info) Description 10/01/2022 Telephone [facility] Comprehensive Pain Program - [address] [place] [address] Levi Hanna MD [address] [facility] [address] [place] [address] Appointment Related Social History Tobacco Use Types [...] 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 I'mgonna have to cancel it and reschedule it because I don't have a ride on Tuesday. So if someone could call me back tomorrow my number is [phone]. Thank you. No voice mail unable to leave message to reschedule. This is second cancel for compass intake, patient needs to come the next appt. documented in this encounter Plan of Treatment Upcoming Encounters Date Type Department Care Team (Late st Contact Info) Description 01/04/2025 13:00 EST Office Visit [facility] Ophthalmology - [address] [phone] Gagandeep Rome MD [address] [place] [address], [address] [place] [phone] 02/11/2025 13:30 EDT Telemedicine [facility] Hematology & Oncology [address] [phone] Dana Padilla MD [address] [place], [place] [address], [address] [place] [phone] documented as of this encounter Visit Diagnoses Not on filedocumented in this encounter Additional Health Concerns Infection Onset Date Last Indicated Resolved Time R/O COVID-19 12/14/2022 12/14/2022 12/14/2022 9:10 EST R/O COVID-19 02/23/2023 02/23/2023 02/23/2023 7:15 EDT R/O COVID-19 04/28/2023 04/28/2023 04/29/2023 0:02 EDT R/O COVID-19 09/07/2023 09/07/2023 09/07/2023 22:1 6 EDT documented as of this encounter Care Teams Tanker Serviceman Relationship Specialty Start Date End Date Emigdio Veronica MD [address] [place] [phone] PCP - General Internal Medicine - Primary Care 05/22/20 02/21/24 None, Provider PCP - General 02/24/24 03/18/24 Gabriel Gandara PA PCP - General 03/19/24 09/11/24 Mirna Guerrero PA [address] [place] [address] PCP - General 09/12/24 Izabella Snowden LICSW 1 [facility], [address] [place] [phone] Performing Arts Technicians 02/21/23 05/03/24 documented as of this encounter
--- OUTSIDE RECORDS SUMMARY | 2024-11-22 17:00 | XMS_ITS | Encounter Summary ---
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 on file [...] Visit [facility] Ophthalmology - [address] [phone] Gagandeep Rome MD [address] [place] [address], [facility] 5 [place] [phone] 02/11/2025 13:30 EDT Telemedicine [facility] Hematology & Oncology - [address] [phone] Dana Padilla MD [address] [place] [address], [facility] 2 [place] [phone] documented as of this encounter Visit Diagnoses Diagnosis Thrombocytopenia (HCC-CMS)- Primary Thrombocytopenia, unspecified documented in this encounter Care Teams Planer Operator / Grader Relationship Specialty Start Date End Date Emigdio Veronica MD [address] [place] [address] PCP - General Internal Medicine - Primary Care 05/22/20 02/21/24 documented as of this encounter
--- OUTSIDE RECORDS SUMMARY | 2024-11-22 17:00 | XMS_ITS | Encounter Summary ---
Author Organization [facility] Address [address] [place] [address] Care Team Providers Care Chain Forming Machine Operator Name Role Phone Emigdio Veronica MD Primary Care Provider + Reason for Referral * Radiology Services (Routine/Next Available) - Authorization Not Required Specialty Diagnoses / Procedures Referred By [facility] Referred To Contact Nuclear Medicine Diagnoses Lung nodule Procedures PET CT EYE TO THIGH PET CT LIMITED Emigdio Veronica MD Phone: tel: fax: [facility] Referral ID Status Reason Start Date Expiration Date Visits Requested Visits Authorized [id number] Authorization Not Required 09/29/2022 1 1 Reason for Visit * Reason Comments Post-ED Follow Up Results CT scan-lung issue Encounter Details Date Type Department Care Team (Late st Contact Info) Description 09/29/2022 15:00 EST Office Visit [facility] Adult Primary Care - [place] [address] [place] [address] Emigdio Veronica MD [address] [place] [address] Bilateral lower extremity edema (Primary Dx); MUSA (acute kidney injury) (HCC-CMS); Lung nodule; Chronic pain syndrome; Hematochezia; Healthcare maintenance Social History Tobacco Use Types [...] 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 No / Unsure 09/20/2022 17:08 EDT documented as of this encounter Last Filed Vital Signs Vital Sign Reading Time Taken Comments Blood Pressure 103/61 09/29/2022 1459 EST Pulse 80 09/29/2022 1459 EST r Temperature 36.1 ??C (97 ??F) 09/29/2022 1459 EST Respiratory Rate 16 09/29/2022 1459 EST Oxygen Saturation - - Inhaled Oxygen Concentration - - Weight 114.3 kg (252 lb) 09/29/2022 1459 EST Height - - Body Mass Index 43.26 09/20/2022 1708 EDT documented in this encounter [...] * Patient Instructions* Emigdio Veronica MD - 09/29/2022 15:00 EST Increase lasix to 60 mg daily (3 tablets). Measure weights every day. Go back to lasix 40 mg martin (2 tablets) after your weight drops by 5-7 pounds (245 pounds or less). You are ok to take an extra tablet of lasix (taking 60 mg instead 40 m daily) if you notice your weigh going up by more ten 2-3 pounds. documented in this encounter Ordered Prescriptions Prescription Sig Dispense Quantity Refills Last Filled Start Date End Date furosemide (LASIX) 20 mg tabletIndications: Bilateral lower extremity edema Take 2 Tablets by mouth daily. Can take additional 20 mg tablet for a total of 60 mg martin if weights are up by greater then 2 pounds from baseline 09/29/2022 3 documented in this encounter Progress Notes * Emigdio Veronica MD - 09/29/2022 1500 EST Tara Yun is a 62 y.o. 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 Post-ED Follow Up ??? Results CT scan-lung issue SUBJECTIVE: Tara Yun presents today for a follow-up visit for an ED follow-up. She was seen in [facility] ED after being directed there from a scheduled follow-up visit with her behavioral health specialist after she noted the presence of hematochezia. She was thoroughly evaluated in the ED with a negative hemoccult, serial CBCs that reflected stable hematocrit and a CT abdomen scan that revealedno evidence of acute GI pathology. However the CT scan did confirm the ongoing presence of a suspicious left lower lung nodule first appreciated on a CT abdominal scan this past june. Radiology ultimately recommended further evaluation with a PET/CTY scan to rule out metabolic activity consistentwith malignancy. We discussed her recent ED course and CT scan results in depth today. Similar to previous visits Tara notes ongoing complaints of edema and lower back pain that she wishes to prioritize. She notesthat her recent extra supply of 10 tables of 5 mg of oxycodone to be taken in addition to her baseline dose of 5 mg TID PRN for pain was miraculous at managing her pain and is curious about a permenant increase in her oxycodone dosage. We discussed her concerning objective findings of her persistent elevated creatinine and her significant weight gain of 12 pounds in nine days since dose adjusting her furosemide from 60 to 40 mg daily in the setting of her rising creatinine. ROS as above Medications and history reviewed. Current Outpatient Medications Medication ??? albuterol 90 mcg/actuation inhaler ??? chlorzoxazone (PARAFON FORTE) 500 mg tablet ??? diclofenac sodium gel ??? furosemide (LASIX) 20 mg tablet ??? gabapentin (NEURONTIN) 300 mg capsule ??? INCRUSE ELLIPTA 62.5 mcg/actuation ??? ketotifen (ZADITOR) 0.025 % (0.035 %) ophthalmic solution ??? levothyroxine (SYNTHROID) 25 mcg tablet ??? lidocaine 4 % patch ??? naloxone [...] mL (0.083 %) nebulizer solution OBJECTIVE: BP 103/61 (BP Cuff Location: Left arm, BP Patient Position: Sitting, BP Cuff Sizes: Adult, long) Pulse 80 Comment: r Temp 36.1 ??C (97 ??F) (Tympanic) Resp 16 Wt (!) 114.3 kg (252 lb) BMI 43.26 kg/m?? Gen: Chronically ill appearing middle aged female, NAD HEENT: EOMI, PERRL, conjunctiva pink, no scleral injection/ icterus Neck: no cervical lymphadenopathy, thyroid exam WNL CV: RRR, no murmurs, rubs or gallops Pulm: CTAB, good air movement, no wheezes, rales, or rhonchi Abd: +BS, soft, diffusely tender and distended Extrem: +3 pitting edema in bilateral lower extremities up to shins, warm and well perfused Skin: No rashes or erythema, intact Neuro: A&Ox3, CN II through XII grossly intact Recent Labs/Imaging: Reviewed in Epic ASSESSMENT and PLAN: Tara was seen today for post-ed follow up and results. Diagnoses and all orders for this visit: Bilateral lower extremity edema, MUSA: Patient continues to exhibit brittle tolerance of diuretic therapy in setting of persistent volume overload related to her cirrhosis diagnosis. Despite attempts to gradually adjust her diuretics to maintain a stable weight prolonged moderate doses of loop diuretics result in acute decreases to her GFR. Her kidney function baseline remains fluid at this time and it is difficult to determine her true baseline. Will attempt a to implement a weight based dosingstrategy. Will estimate a dry weight of 245 pounds at this time. - furosemide (LASIX) 20 mg tablet; Take 2 Tablets by mouth daily. Can take additional 20 mg tablet for a total of 60 mg martin if weights are up by greater then 2 pounds from baseline Lung nodule: Suspicious lower left lung nodule on two serial CT abdomen scans obtained in the setting of ED evaluations. Radiology recommending PET/CT follow- up and patient is in agreement with pursuing this imaging test. - PET CT LIMITED; Future Chronic pain syndrome: patient continues to note poor pain control. Problem addressed in previous encounters in depth. Patient expresses exclusive interest in dose escalation of opiate therapy. Advised against further dose increases at this time given acute kidney injury. - Continue oxycodone, gabapentin, diclofenac gel, lidocaine patches as prescribed - Establish with comprehensive pain clinic as scheduled. Hematochezia: No further episodes. Work-up for GI process negative in recent ED presentation. - Will continue to monitor Healthcare maintenance Health Maintenance Topic Date Due [...] ??? Current Opioid Misuse Measurement 08/11/2023 ??? [place] Prescription Monitoring System 09/17/2023 ??? Pneumococcal Immunization (4 - PPSV23 if available, else PCV20) 2025 ??? Lipid Profile Screening (Cholesterol) 04/16/2027 ??? Tetanus (Adult) Immunization 03/17/2029 ??? HIV Screening Completed ??? Shingles Immunization Completed ??? Hepatitis C Screen Completed ??? Influenza Immunization (Adult) Completed ??? Pertussis (Adult) Immunization Discontinued F/u: No follow-ups on file. I spent a total of 35 minutes with this patient today face to face, in chart review and in documentation and 30 minutes of that time was spent on education and counseling for bilateral lower extremity edema, MUSA, lung nodule, chronic pain syndrome, hematochezia, healthcare maintenance. Some of this note was transcribed with [employer] dictating software. While it was proofread, it may still contain unnoticed grammatical or word errors due to incorrect transcribing. Emigdio Veronica MD 10/01/2022 10:44 documented in this encounter Plan of Treatment Upcoming Encounters Date Type Department Care Team (Late st Contact Info) Description 01/04/2025 13:00 EST Office Visit [facility] Ophthalmology - [address] [phone] Gagandeep Rome MD [address] [place] [address], [facility] 5 [place] [address] 02/11/2025 13:30 EDT Telemedicine [facility] Hematology & Oncology [address] [phone] Dana Padilla MD [address] [place] [address] 2 [place] [address] documented as of this encounter Results * PET CT EYE [...] the IV injection of 9.01 mCi of [id number], 3D TOF PET imaging was obtained from the skull base to upper thighs using a [employer] digital ??PET/CT system. ??The blood glucose level [...] following the IV injection of 9.01 mCi [id number], 3D TOF PET imaging was obtained from the skullbase to upper thighs using a [employer] digital PET/CT system. Theblood glucose level prior [...] node with SUV max of 5.04 (CT image 703). No additional enlarged or FDG avid lymphadenopathy. There is a 1.4 cm left adrenal nodule demonstrating SUV max of 5.4.Scattered focal metabolic activity in bowel particularly in closeproximity to the abnormal metabolically active lymph node (PET [id number]; image 61). Redemonstrated sequela of cirrhosis and [...] the above interpretation andagree with the findings. Emigdio Veronica MD [facility] [place] ORDERABLES Final Result documented in this encounter Visit Diagnoses Diagnosis Bilateral lower extremity edema- Primary Edema MUSA (acute kidney injury) ([facility]) Acute kidney failure, unspecified Lung nodule Solitary pulmonary nodule Chronic pain syndrome Hematochezia Blood in stool Healthcare maintenance Routine general medical examination at a [facility] facility Lung nodule Solitary pulmonary nodule documented in this encounter Discontinued Medications Medication Sig Discontinue Reason Start Date End Da te furosemide (LASIX) 20 mg tabletIndications:Bilate ral lower extremity edema Take 2 Tablets by mouth 2 times daily. Until seen by PCP. Order modification 07/22/2022 09/29/2022 documented as of this encounter Care Teams Chain Forming Machine Operator Relationship Specialty Start Date End Date Emigdio Veronica MD [address] [place] [address] PCP - General Internal Medicine - Primary Care 05/22/20 02/21/24 documented as of this encounter
--- OUTSIDE RECORDS SUMMARY | 2024-11-22 17:00 | XMS_ITS | Encounter Summary ---
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 100 mL 10/26/2022 04/29/2023 oxyCODONE (ROXICODONE) 5 mg immediate release tablet Take 1 Tablet by mouth 3 times daily as needed for up to 28 days for Pain. Daily Max: 15 mg 84 Tablet 10/27/2022 11/19/2022 documented in this encounter Miscellaneous Notes * Telephone Encounter - Karol Hoff RN - 10/26/2022 1719 EST Updated patient about the recommendations from Dr Veronica below. The patient indicates understanding of these issues and agrees with the plan. No barriers. * Telephone Encounter - Emigdio Veronica MD - 10/26/2022 1708 EST I am sorry to hear that Gena is in increased pain. Unfortunately I cannot authorized another early refill of her oxycodone. We have done several earlyrefills in the past five months prompting even concern from her pharmacy in august. It is a violation of our controlled substance agreement to take extra tablets without clearance from this office and I wish she would have discussed her concerns regarding her mouth pain with our office before taking more of her chronic pain medication. Her request for an early refill is declined. I have signed for a refill of her regular oxycodone tomorrow and will follow-up with her on her oxycodone use at our upcoming visit. I will offer a prescription of viscous lidocaine however to help with her mouth pain tonight. * Telephone Encounter - Ebony Toscano - 10/26/2022 1608 EST Pt calling again this afternoon, pt says the pain in her mouth is terrible. Pt is hoping for refill today. * Telephone Encounter - Karol Hoff RN - 10/26/2022 1132 EST Spoke to patient who reports she continues to have oral pain [facility] They are going to pull all my teeth. She reports she took an extra oxycodone tablet a couple of times and just took her last one this morning, even though not due until tomorrow. She has an appointment with Dr Veronica on Tuesday and would not be able to get transportation today if an appointment became available with Dr Veronica. Patient requesting early fill. Patient had a mechanical fall out of bed today addressed in telephone encounter. Please see pended if appropriate. * Telephone Encounter - Ebony Toscano - 10/26/2022 1002 EST Requested Prescriptions Pending Prescriptions Disp Refills ??? oxyCODONE (ROXICODONE) 5 mg immediate release tablet 84 Tablet 0 Sig: Take 1 Tablet by mouth 3 times daily as needed for up to 28 days for Pain. Daily Max: 15 mg [facility]/pharmacy #[id number] Confirmed Pharmacy? Yes Patient out of medication? Yes: Needs Refill Now - pt says Dr. Veronica told her it was ok to take afew extra, is out today. Last Refill Date: 09.29.22 Refills left? (explain exceptions requiring early refill) No Chronic controlled medication yes Last med check visit 09.29.22 Future visit scheduled Yes 10.29.22 Vpms check Yes Due 08/2023 Prescription agreement Yes Due 07/2023 Patient due for refill yes Is there a plan for tapering of medication noted in chart? unknown Recent Visits Date Type Provider Dept 09/29/22 Office Visit Emigdio Veronica MD [facility] Adult Prim Care 09/17/22 Office Visit Emigdio Veronica MD [facility] 08/11/22 Office Visit [facility] 07/29/22 Office Visit Scottie Campuzano PA-C [facility] 07/16/22 Office Visit Scottie Campuzano PA-C [facility] [place] Adult Prim Care 06/25/22 Office Visit [facility] 05/20/22 Office Visit Nguyen Nolasco, CAPACITY MANAGER [facility] Adult Prim Care 02/17/22 Office Visit Emigdio Veronica MD [facility] Adult Prim Care 02/10/22 Office Visit Darlene Rollins, HARSH [facility] Adult Prim Care 01/27/22 Office Visit Osmany Matthews MD [facility] Adult Prim [facility] Showing recent visits within past 540 days with a meds authorizing provider and meeting all other requirements Future Appointments Date Type Provider Dept 10/29/22 Appointment Emigdio Veronica MD [facility] Prim [facility] 11/25/22 Appointment Emigdio Veronica MD [facility] Prim [facility] Showing future appointments within next 150 days with a meds authorizing provider and meeting all other requirements Future appointment: Already Scheduled Ebony Toscano 10/26/2022 10:02 documented in this encounter Plan of Treatment Upcoming Encounters Date Type Department Care Team (Late st Contact Info) Description 01/04/2025 13:00 EST Office Visit [facility] Ophthalmology - [address] [phone] Gagandeep Rome MD [address] [place] [address], [facility] 5 [place] [phone] 02/11/2025 13:[address] [facility] Hematology & Oncology [address] [address] Dana Padilla MD [address] [place] [address], [address] [place] [phone] documented as of this encounter Visit Diagnoses Not on filedocumented in this encounter Discontinued Medications Medication Sig Discontinue Reason Start Date End Da te oxyCODONE (ROXICODONE) 5 mg immediate release tablet Take 1 Tablet by mouth 3 times daily as needed for up to 28 days for Pain. Daily Max: 15 mg Reorder 09/29/2022 10/26/2022 documented as of this encounter Care Teams Dietary Aide Relationship Specialty Start Date End Date Emigdio Veronica MD [address] [place] [address] PCP - General Internal Medicine - Primary Care 05/22/20 02/21/24 documented as of this encounter
--- OUTSIDE RECORDS SUMMARY | 2024-11-22 17:00 | XMS_ITS | Encounter Summary ---
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 Not [...] Visit [facility] Ophthalmology - [address] [phone] Gagandeep Rome MD [address] [place] [address] 5 [place] [phone] 02/11/2025 13:30 EDT Telemedicine [facility] Hematology & Oncology - [address] [phone] Dana Padilla MD [address] [place] [address] 2 [place] [address] documented as of this encounter Visit Diagnoses Not on filedocumented in this encounter Care Teams Chute Loader Relationship Specialty Start Date End Date Emigdio Veronica MD [address] [place] [phone] PCP - General Internal Medicine - Primary Care 05/22/20 02/21/24 documented as of this encounter
--- OUTSIDE RECORDS SUMMARY | 2024-11-22 17:00 | XMS_ITS | Encounter Summary ---
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 About 3 hours ago patient had a mechanical fall out of bed and her chest landed on the corner of her night stand. She denies increase in SOB. Denies hitting her head. Reviewed if sudden increase in SOB occurs she needs to present to the ED. She has an OV with Dr Veronica on 10/29. * Telephone Encounter - Dorcas Ebony - 10/26/2022 1003 EST Reason for Call: Fall (/) Summary/Symptoms: Pt says she fell during the night, says she hit her chest on the corner of her bedside table. She says she was still in bed, went to get out of bed, thinks she was to close to the edge of the bed, rolled out & fell. She says she did not hit her head. Says she is having quite a bit of pain today. See also encounter for med refill. Onset and Duration: see above Does the patient have a computer, laptop or smart phone with high speed & video capability? N/A If so, would they be interested in doing a video visit via [employer]? N/A Appointment Offered? No Ebony Toscano 10/26/2022 10:03 documented in this encounter Plan of Treatment Upcoming Encounters Date Type Department Care Team (Late st Contact Info) Description 01/04/2025 13:00 EST Office Visit [facility] Ophthalmology - [address] [phone] Gagandeep Rome MD [address] [place] [address], Level 5 [place] [address] 02/11/2025 13:30 EDT Telemedicine [facility] Hematology & Oncology - [address] [phone] Dana Padilla MD [address] [facility], Level 2 [place] [phone] documented as of this encounter Visit Diagnoses Not on filedocumented in this encounter Care Teams Material Yard Clerk Relationship Specialty Start Date End Date Emigdio Veronica MD [address] [place] [phone] PCP - General Internal Medicine - Primary Care 05/22/20 02/21/24 documented as of this encounter
--- OUTSIDE RECORDS SUMMARY | 2024-11-22 17:00 | XMS_ITS | Encounter Summary ---
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 hospital discharge referral from Christine Conteh RN, heart failure nurse clinician. TOPIC OF CONVERSATION: Pt responded to [facility] That's Solart message asking [facility] to reach out. [facility] called pt to check-in and assess needs at this time. ?? Tara filled [facility] in on her health status, including her GI bleeds and back pain. She said thatolivier sometimes has trouble getting out of bed and has no feeling in her toes and fingers. ?? Tara says that she's not used to being so inactive. She'd like to be out hunting and visitingwith her family ?? Positive supports in her life: her dog (who has a fun modeling gig tomorrow!), her son and grandson, her roommates, and her brother and cousin who have recently gotten back in touch after many years Tara said that she would like [facility] to call to check-in every once in a while. [facility] will make next outreach call in about 1 month to reassess need. [facility] also discussed pain clinic, as the comprehensive pain program has their own health and wellnesscoach. [facility] gave Tara the pain clinic number, and she said she would call this afternoon to reschedule her appt. Thank you, Lashawn Ayala MS, [facility] Population Health Service Organization ([facility]) [facility] [email or web address] documented in this encounter Plan of Treatment Upcoming Encounters Date Type Department Care Team (Late st Contact Info) Description 01/04/2025 13:00 EST Office Visit [facility] [place] [address] Gagandeep Rome MD [address] [place] [address], Level 5 [place] [phone] 02/11/2025 13:30 EDT Telemedicine [facility] Hematology & Oncology - [address] [phone] Dana Padilla MD 111 [facility], [facility], Level 2 [place] [address] documented as of this encounter Visit Diagnoses Not on filedocumented in this encounter Care Teams Wastewater Process Engineer Relationship Specialty Start Date End Date Emigdio Veronica MD 2 [place] [address] PCP - General Internal Medicine - Primary Care 05/22/20 02/21/24 documented as of this encounter
--- OUTSIDE RECORDS SUMMARY | 2024-11-22 17:00 | XMS_ITS | Encounter Summary ---
Author Organization [facility] Address [address] [place] [address] Care Team Providers Care Stonecutter Assistant Name Role Phone Emigdio Veronica MD Primary Care Provider + Izabella Snowden [facility] Unavailable None, Provider Primary Care Provider Gabriel Wei Primary Care Provider Mirna Guerrero Primary Care Provider + Reason for Visit * Reason Comments Medications Refill Encounter Details Date Type Department Care Team (Late st Contact Info) Description 10/09/2022 Refill [facility] Adult Primary Care - [place] 2 [place] [address] Emigdio Veronica MD 2 [place] [address] Medications Refill Social History Tobacco [...] 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 DAILY MAX: 2 DROPS PER EYE 5 mL 3 10/12/2022 05/03/2023 documented in this encounter Miscellaneous Notes * Telephone Encounter - Fatoumata Fowler RN - 10/12/2022 0900 EST Requested Prescriptions Pending Prescriptions Disp Refills ??? ketotifen (ZADITOR) 0.025 % (0.035 %) ophthalmic solution [Pharmacy Med Name: KETOTIFEN FUM 0.035% EYE DROPS] 5 mL 1 Sig: PLACE 1 DROP IN BOTH EYES TWICE DAILY NEEDED FOR EYE IRRITATION. DAILY MAX: 2 DROPS PER EYE [id number] - [address] Confirmed Pharmacy? Yes Patient out of medication? Unknown Last Refill Date: 09/10/22 Refills left? (explain exceptions requiring early refill) No Recent Visits Date Type Provider Dept 09/29/22 Office Visit Emigdio Veronica MD [facility] [place] Adult Prim Care 09/17/22 Office Visit Emigdio Veronica MD [facility] [place] Adult Prim Care 08/11/22 Office Visit Emigdio Veronica MD [facility] [place] Adult Prim Care 07/29/22 Office Visit Scottie Campuzano PA-C [facility] [place] Adult Prim Care 07/16/22 Office Visit Scottie Campuzano PA-C [facility] [place] Adult Prim Care 06/25/22 Office Visit Emigdio Veronica MD [facility] [place] Adult Prim Care 05/20/22 Office Visit Nguyen Nolasco, HARSH [facility] Adult Prim Care 02/17/22 Office Visit Emigdio Veronica MD [facility] [place] Adult Prim Care 02/10/22 Office Visit Darlene Rollins, HAR[facility] [place] Adult Prim Care 01/27/22 Office Visit Osmany Matthews MD [facility] Adult Prim Care Showing recent visits within past 540 days with a meds authorizing provider and meeting all other requirements Future Appointments Date Type Provider Dept 10/29/22 Appointment Emigdio Veronica MD [facility] Adult Prim Care 11/25/22 Appointment Emigdio Veronica MD [facility] Adult Prim Care Showing future appointments within next 150 days with a meds authorizing provider and meeting all other requirements Future appointment: Already Scheduled FATOUMATA FOWLER RN 10/12/2022 9:00 documented in this encounter Plan of Treatment Upcoming Encounters Date Type Department Care Team (Late st Contact Info) Description 01/04/2025 13:00 EST Office Visit [facility] Ophthalmology - [address] [phone] Gagandeep Rome MD [address] [place] [address], [facility] 5 [place] [phone] 02/11/2025 13:30 EDT Telemedicine [facility] Hematology & Oncology [address] [phone] Dana Padilla MD [address] [place] [address], [facility] 2 [place] [address] documented as of this encounter Visit Diagnoses Not on filedocumented in this encounter Discontinued Medications Medication Sig Discontinue Reason Start Date End Da te ketotifen (ZADITOR) 0.025 % (0.035 %) ophthalmic solution PLACE 1 DROP INTO BOTH EYES 2 TIMES DAILY NEEDED (EYE IRRITATION). DO NOT EXCEED 2 APPLICATIONS PER DAY 09/10/2022 10/12/2022 documented as of this encounter Additional Health Concerns Infection Onset Date Last Indicated Resolved Time R/O COVID-19 12/14/2022 12/14/2022 12/14/2022 9:10 EST R/O COVID-19 02/23/2023 02/23/2023 02/23/2023 7:15 EDT R/O COVID-19 04/28/2023 04/28/2023 04/29/2023 0:02 EDT R/O COVID-19 09/07/2023 09/07/2023 09/07/2023 22:1 6 EDT documented as of this encounter Care Teams Stonecutter Assistant Relationship Specialty Start Date End Date Emigdio Veronica MD [address] [place] [phone] PCP - General Internal Medicine - Primary Care 05/22/20 02/21/24 None, Provider PCP - General 02/24/24 03/18/24 Gabriel Gandara PA PCP - General 03/19/24 09/11/24 Mirna Guerrero PA [address] [place] [address] PCP - General 09/12/24 Izabella Snowden, VAT SKIMMER 1 [facility], 3rd [place] [phone] Professor Of Fine Art 02/21/23 05/03/24 documented as of this encounter
--- OUTSIDE RECORDS SUMMARY | 2024-11-22 17:00 | XMS_ITS | Encounter Summary ---
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 oxyCODONE (ROXICODONE) 5 mg immediate release tablet 10 Tablet 0 Sig: Take 1-2 Tablets by mouth 3 times daily as needed for Pain. Daily Max: 20 mg [id number] - [address] Confirmed Pharmacy? Yes Patient out of medication? No Last Refill Date: 10.27.22 Refills left? (explain exceptions requiring early refill) No Recent Visits Date Type Provider Dept 09/29/22 Office Visit Emigdio Veronica MD [facility] Adult Prim Care 09/17/22 Office Visit Emigdio Veronica MD [facility] Adult Prim Care 08/11/22 Office Visit Emigdio Veronica MD [facility] Adult Prim Care 07/29/22 Office Visit Scottie Campuzano PA-C [facility] Adult Prim Care 07/16/22 Office Visit Scottie Campuzano PA-C [facility] Adult Prim Care 06/25/22 Office Visit Emigdio Veronica MD [facility] Adult Prim Care 05/20/22 Office Visit Nguyen Nolasco NP [facility] Adult Prim Care 02/17/22 Office Visit Emigdio Veronica MD [facility] Adult Prim Care 01/27/22 Office Visit Osmany Matthews MD [facility] Adult Prim Care 11/25/21 Office Visit Emigdio Veronica MD [facility] Adult Prim Care Showing recent visits within past 540 days with a meds authorizing provider and meeting all other requirements Future Appointments Date Type Provider Dept 11/25/22 Appointment Emigdio Veronica MD [facility] Adult [place] Care Showing future appointments within next 150 days with a meds authorizing provider and meeting all other requirements Future appointment: Already Scheduled Noemi Hall 11/17/2022 11:55 documented in this encounter Plan of Treatment Upcoming Encounters Date Type Department Care Team (Late st Contact Info) Description 01/04/2025 13:00 EST Office Visit [facility] Ophthalmology - [address] [phone] Gagandeep Rome MD [address] [place] [address] 5 [place] [phone] 02/11/2025 13:30 EDT Telemedicine [facility] Hematology & Oncology [address] [phone] Dana Padilla MD [address] [place] [address] 2 [place] [address] documented as of this encounter Visit Diagnoses Not on filedocumented in this encounter Discontinued Medications Medication Sig Discontinue Reason Start Date End Da te oxyCODONE (ROXICODONE) 5 mg immediate release tablet Take 1 Tablet by mouth 3 times daily as needed for up to 28 days for Pain. Daily Max: 15 mg Reorder 10/27/2022 11/19/2022 oxyCODONE (ROXICODONE) 5 mg immediate release tablet Take 1-2 Tablets by mouth 3 times daily as needed for Pain. Daily Max: 20 mg Therapy completed 09/17/2022 11/19/2022 documented as of this encounter Care Teams Condenser Winder Relationship Specialty Start Date End Date Emigdio Veronica MD [address] [place] [address] PCP - General Internal Medicine - Primary Care 05/22/20 02/21/24 documented as of this encounter
--- OUTSIDE RECORDS SUMMARY | 2024-11-22 17:00 | XMS_ITS | Encounter Summary ---
Author Organization [facility] Address [address] [place] [address] Care Team Providers Care Hat Cleaner Name Role Phone Emigdio Veronica MD Primary Care Provider + Izabella Snowden [facility] Unavailable None, Provider Primary Care Provider Gabriel Wei Primary Care Provider Mirna Guerrero Primary Care Provider + Reason for Visit * Reason Comments Medications Refill Encounter Details Date Type Department Care Team (Late st Contact Info) Description 11/06/2022 Refill [facility] Adult Primary Care - [place] 2 [place] [address] Emigdio Veronica MD 2 [place] [address] Medications Refill Social History Tobacco [...] 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 Patient not taking flexeril. Will remove from medication list. Refill pended for pcp. * Telephone Encounter - Emigdio Veronica MD - 11/09/2022 1321 EST I can refill, but we should verify that the patient is not on cyclobenzaprine as well as these are both muscle relaxants. Please reach out to Tara to verify her current medication regiment. * Telephone Encounter - Fatoumata Fowler RN - 11/09/2022 1029 EST Requested Prescriptions Pending Prescriptions Disp Refills ??? chlorzoxazone (PARAFON FORTE) 500 mg tablet [Pharmacy Med Name: CHLORZOXAZONE 500 MG TABLET] 90Tablet 1 Sig: TAKE 1 TABLET BY MOUTH THREE TIMES A DAY NEEDED FOR MUSCLE SPASMS [id number] [place], [place] - [address] [place] [address] Confirmed Pharmacy? Yes Patient out of medication? Unknown Last Refill Date: 06/28/22 Refills left? (explain exceptions requiring early refill) No Recent Visits Date Type Provider Dept 09/29/22 Office Visit Emigdio Veronica MD [facility] [place] Adult Prim Care 09/17/22 Office Visit Emigdio Veronica MD [facility] [place] Adult Prim Care 08/11/22 Office Visit Emigdio Veronica MD [facility] [place] Adult Prim Care 07/29/22 Office Visit Scottie Campuzano PA-C [facility] [place] Adult Prim Care 07/16/22 Office Visit Scottie Campuzano PA-C [facility] [place] Adult Prim Care 06/25/22 Office Visit Emigdio Veronica MD [facility] [place] Adult Prim Care 05/20/22 Office Visit Nguyen Nolasco NP [facility] [place] Adult Prim Care 02/17/22 Office Visit Emigdio Veronica MD [facility] Adult Prim Care 01/27/22 Office Visit Osmany Matthews MD [facility] [place] Adult Prim Care 11/25/21 Office Visit Emigdio Veronica MD [facility] Adult Prim Care Showing recent visits within past 540 days with a meds authorizing provider and meeting all other requirements Future Appointments Date Type Provider Dept 11/25/22 Appointment Emigdio Veronica MD [facility] Adult Prim Care Showing future appointments within next 150 days with a meds authorizing provider and meeting all other requirements Future appointment: Already Scheduled FATOUMATA FOWLER RN 11/09/2022 10:29 documented in this encounter Plan of Treatment Upcoming Encounters Date Type Department Care Team (Late st Contact Info) Description 01/04/2025 13:00 EST Office Visit [facility] Ophthalmology - [address] [phone] Gagandeep Rome MD [address] [place] [address], Level 5 [place] [phone] 02/11/2025 13:30 EDT Telemedicine [facility] Hematology & Oncology [address] [phone] Dana Padilla MD [address] [place], [place] [address], Level 2 [place] [address] documented as of this encounter Visit Diagnoses Not on filedocumented in this encounter Discontinued Medications Medication Sig Discontinue Reason Start Date End Da te cyclobenzaprine (FLEXERIL) 5 mg tablet Therapy completed 022 chlorzoxazone (PARAFON FORTE) 500 mg tablet TAKE 1 TABLET BY MOUTH THREE TIMES A DAY NEEDED FOR MUSCLE SPASMS 06/28/2022 11/09/2022 documented as of this encounter Additional Health Concerns Infection Onset Date Last Indicated Resolved Time R/O COVID-19 12/14/2022 12/14/2022 12/14/2022 9:10 EST R/O COVID-19 02/23/2023 02/23/2023 02/23/2023 7:15 EDT R/O COVID-19 04/28/2023 04/28/2023 04/29/2023 0:02 EDT R/O COVID-19 09/07/2023 09/07/2023 09/07/2023 22:1 6 EDT documented as of this encounter Care Teams Hat Cleaner Relationship Specialty Start Date End Date Emigdio Veronica MD [address] [place] [address] PCP - General Internal Medicine - Primary Care 05/22/20 02/21/24 None, Provider PCP - General 02/24/24 03/18/24 Gabriel Gandara PA PCP - General 03/19/24 09/11/24 Mirna Guerrero PA [address] [place] [address] PCP - General 09/12/24 Izabella Snowden, STOREKEEPER STEWARD [address] [place] [address], [address] [place] [address] [employer] Barista 02/21/23 05/03/24 documented as of this encounter
--- OUTSIDE RECORDS SUMMARY | 2024-11-22 17:00 | XMS_ITS | Encounter Summary ---
Author Organization [facility] Address [address] [place] [address] Care Team Providers Care Fryline Attendant Name Role Phone Emigdio Veronica MD Primary Care Provider + Encounter Details Date Type Department Care Team (Late st Contact Info) Description 09/24/2022 Orders Only [facility] Hematology & Oncology - 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 Not [...] Visit [facility] Ophthalmology - [address] [phone] Gagandeep Rome MD [address] [place] [address], [facility] 5 [place] [phone] 02/11/2025 13:30 EDT Telemedicine [facility] Hematology & Oncology - [address] [address] Dana Padilla MD [address] [place] [address], [facility] 2 [place] [address] documented as of this encounter Visit Diagnoses Not on filedocumented in this encounter Care Teams Fryline Attendant Relationship Specialty Start Date End Date Emigdio Veronica MD 2 [place] [address] PCP - General Internal Medicine - Primary Care 05/22/20 02/21/24 documented as of this encounter
--- OUTSIDE RECORDS SUMMARY | 2024-11-22 17:00 | XMS_ITS | Encounter Summary ---
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 [...] Office Visit [facility] Ophthalmology - [address] [phone] Gagandeep Rome MD [address] [place] [address] 5 [place] [phone] 02/11/2025 13:30 EDT Telemedicine [facility] Hematology & Oncology - [address] [phone] Dana Padilla MD [address] [place] [address] 2 [place] [address] documented as of this encounter Visit Diagnoses Not on filedocumented in this encounter Care Teams Senior Software Engineering Manager Relationship Specialty Start Date End Date mEigdio Veronica MD 2 [place] [phone] PCP - General Internal Medicine - Primary Care 05/22/20 02/21/24 documented as of this encounter
--- OUTSIDE RECORDS SUMMARY | 2024-11-22 17:00 | XMS_ITS | Encounter Summary ---
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 Dolly Branch, Tiny Royal RN Hi Laura, I answered her, no need to follow up with me. ??Dolly * Telephone Encounter - Sarahi Amlendarez - 09/22/2022 1550 EDT Patient called to cancel her 09/29 11am appointment as she has 2 other doctor's appointments that day. Patient was unsure she needed this appointment. Patient would like to be reached via WowOwow in regards to this Please message patient via my chart about this appointment documented in this encounter Plan of Treatment Upcoming Encounters Date Type Department Care Team (Late st Contact Info) Description 01/04/2025 13:00 EST Office Visit [facility] Ophthalmology - [address] [phone] Gagandeep Rome MD [address] [place] [address], [facility] [address] [place] [phone] 02/11/2025 13:30 EDT Telemedicine [facility] Hematology & Oncology [address] [phone] Dana Padilla MD [address] [place] [address], [facility] [address] [place] [phone] documented as of this encounter Visit Diagnoses Not on filedocumented in this encounter Care Teams Marine Firefighter Relationship Specialty Start Date End Date Emigdio Veronica MD 2 [place] [phone] PCP - General Internal Medicine - Primary Care 05/22/20 02/21/24 documented as of this encounter
--- OUTSIDE RECORDS SUMMARY | 2024-11-22 17:00 | XMS_ITS | Encounter Summary ---
Author Organization 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 Not [...] [facility] Ophthalmology - [address] [phone] Gagandeep Rome MD [address] [place] [address], [facility] [address] [place] [phone] 02/11/2025 13:30 EDT Telemedicine [facility] Hematology & Oncology - [address] [address] Dnaa Padilla MD [address] [place] [address], [facility] [address] [place] [phone] documented as of this encounter Visit Diagnoses Not on filedocumented in this encounter Care Teams Software Qa System Specialist Relationship Specialty Start Date End Date Emigdio Veronica MD [address] [place] [phone] PCP - General Internal Medicine - Primary Care 05/22/20 02/21/24 documented as of this encounter
--- OUTSIDE RECORDS SUMMARY | 2024-11-22 17:00 | XMS_ITS | Encounter Summary ---
Author Organization [facility] Address [address] [place] [address] Care Team Providers Care Sugar Reprocess Operator Head Name Role Phone Emigdio Fernandze MD Primary Care Provider + Reason for Visit * Reason Onset Date Comments Vaccine Reaction 09/27/2022 Breast Pain 09/27/2022 Nausea 09/27/2022 Foot Swelling 09/27/2022 Weight Gain 09/27/2022 Encounter Details Date Type Department Care Team (Late st Contact Info) Description 09/27/2022 Telephone [facility] Adult Primary Care - [place] [address] [place] [address] Emigdio Fernandez MD [address] [place] [phone] Vaccine Reaction; Breast Pain; Nausea; Foot Swelling; Weight Gain Social History Tobacco Use Types Packs/Day Years [...] 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 * Telephone Encounter - Emigdio Fernandez MD - 09/27/2022 1236 EST At this point agree with RN recommendations to test for COVID-19. If she is unable to secure a homeantigen test then we can order PCR. If she is positive she should notify us immediately. I do not believe her symptoms relate to a vaccine reaction, I would be most suspicious for acute infection. They may relate to volume overload given her edema, but her volume status is tenuous and she is already recovering from an MUSA from recent uptitation of her diuretics. I would not increase her diuretics without a clinical evaluation. We will address the PET/CT question at our upcoming visit. * Telephone Encounter - Heike Mcleod RN - 09/27/2022 1135 EST Call to pt Pain on both sides .Under breast near rib cage to side. Started getting worse tuesday. Received shingles vaccine on 09/17, about a wk and a half ago. Wondering if her sx could be a side effect from vaccine. Discussed this was unlikely. Is bringing phlegm up from lungs with cough which Started of last wk Needing 02 more than usual in past wk. Usually only needs at night but using during day as well . 2L02. Pain from hip to rib area/back. Pain and itching on both sides. States back is itchy but cannot seeback there. No other rash that is visible to her Some nausea as well States all this started since vaccine and has gotten worse. No hx of vaccine reactions Sees dr fernandez on Saturday 09/29 Went to ER for bleeding in rectum on 09/20 from hematology appt. No bleeding for past couple days. Is still having abdominal pain. From CT in ER: 5. Unchanged 2 cm nodule in the left lung base, remains concerning for malignancy. Consider PET/CT on a nonemergent outpatient basis. see Pended CT chest if appropriate Since she saw dr fernandez on 09/17 last has gained 7-8 lbs. Swelling in both feet but L foot a little more than R foot. Wearing slippers as cannot get feet in shoes States she saw her son mid to late last wk( she thinks 09/24). After that son came down with covid. Was running a temp of 100.6 a couple days ago (Tuesday). Slept it off yesterday. Does not have any covid tests at home. States son was tired when she saw him but not sx. She will get covid test from pharmacy to do today and Tuesday AM prior to appt For lasix she is taking 40 mg a daily and spironolactone taking 100 mg a day. States lasix was at [address] fernandez dropped her down to 40 mg a day. Is getting CBC, BMP, SPEP, methylmalonic acid, homocysteine labs done before appt. Pt does not want to see another provider sooner. Wants to wait for appt with dr fernandez Tuesday. Will red dot appt Any recommendations? * Telephone Encounter - Noemi Hall - 09/27/2022 1120 EST Reason for Call: Vaccine Reaction and Breast Pain Summary/Symptoms: patient had shingles vaccine last week. She is not sure if she is having a reaction to the vaccine or something else. She has been very nauseas and has bad pain around breast area since then Says also having difficulty walking due to swelling in feet Gained 7-8 lbs in a week Onset and Duration: since last weeks visit Does the patient have a computer, laptop or smart phone with high speed & video capability? N/A If so, would they be interested in doing a video visit via ePrime[employer]? N/A Appointment Offered? No Noemi Hall 09/27/2022 11:21 documented in this encounter Plan of Treatment Upcoming Encounters Date Type Department Care Team (Late st Contact Info) Description 01/04/2025 13:00 EST Office Visit [facility] Ophthalmology - [address] [phone] Gagandeep Rome MD [address] [place] [address], [facility] [address] [place] [address] 02/11/2025 13:30 EDT Telemedicine [facility] Hematology & Oncology - [address] [phone] Dana Padilla MD [address] [place] [address], [facility] [address] [place] [phone] documented as of this encounter Visit Diagnoses Not on filedocumented in this encounter Care Teams Sugar Reprocess Operator Head Relationship Specialty Start Date End Date Emigdio Fernandez MD [address] [place] [phone] PCP - General Internal Medicine - Primary Care 05/22/20 02/21/24 documented as of this encounter
--- OUTSIDE RECORDS SUMMARY | 2024-11-22 17:00 | XMS_ITS | Encounter Summary ---
Author Organization [facility] Address [address] [place] [address] Care Team Providers Care Engine Repairer Name Role Phone Emigdio Veronica MD Primary Care Provider + Encounter Details Date Type Department Care Team (Late st Contact Info) Description 09/28/2022 10:30 EST Phlebotomy Only [facility] Laboratory Services - [address] [address] Telegraphic Typewriter Operator Chief, [facility] Numbness in both hands; Thrombocytopenia (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 on file [...] 13:00 EST Office Visit [facility] Ophthalmology - [address] [phone] Gagandeep Rome MD [address] [place] [address], [facility] [address] [place] [phone] 02/11/2025 13:30 EDT Telemedicine [facility] Hematology & Oncology - [address] [phone] Dana Padilla MD [address] [place] [address], [facility] [address] [place] [address] documented as of this encounter Procedures Procedure Name Priority Date/Time Associated Diagnosis Comments SPEP, INCLUDES QUANTITATION OF MONOCLONAL SPIKE PERFORMABLE Routine 09/28/2022 10:48 EST Numbness in both hands METHYLMALONIC ACID Routine 09/28/2022 10 :48 EST Numbness in both hands COMPLETE BLOOD COUNT Routine 09/28/2022 10:48 EST Thrombocytopenia (HCC-CMS) SPEP, INCLUDES QUANTITATION OF MONOCLONAL SPIKE Routine 09/28/2022 10:48 EST Numbness in both hands PROTEIN, TOTAL Routine 09/28/2022 10:48 EST Numbness in both hands HOMOCYSTEINE Routine 09/28/2022 10:48 EST Numbness in both hands documented in this encounter Results * (ABNORMAL) SPEP, INCLUDES QUANTITATION OF MONOCLONAL SPIKE PERFORMABLE (09/28/2022 10:48 EST) Albumin % 54.2(L) 55.8 - 66.1 % 09/29/2022 14:16 [facility] Albumin g/dL 3.1(L) 3.6 - 5.2 g/dL 09/29/2022 14:16 [facility] Alpha-1 % 4.7 2.9 - 4.9 % 09/29/2022 14:16 [facility] Alpha-1 g/dL 0.30 0.15 - 0.40 g/dL 09/29/2022 14:16 [facility] Alpha-2 % 9.9 7.1 - 11.8 % 09/29/2022 14:16 [facility] Alpha-2 g/dL 0.60 0.50 - 1.00 g/dL 09/29/2022 14:16 [facility] Beta % 14.2(H) 8.4 - 13.1 % 09/29/2022 14:16 [facility] Beta g/dL 0.80 0.60 - 1.20 g/dL 09/29/2022 14:16 [facility] Gamma % 17.0 11.1 - 18.8 % 09/29/2022 14:16 [facility] Gamma g/dL 1.00 0.60 - 1.60 g/dL 09/29/2022 14:16 [facility] SPEP Comment No apparent monoclonal protein seen on serum electrophoresis 09/29/2022 14:16 [facility] Comment:See scanned/suppleme ntary report. Total Protein 5.8(L) 6.3 - 8.2 g/dL 09/29/2022 14:16 [facility] Blood VENOUS BLOOD / Unknown Venipuncture / Unknown 09/28/2022 10:48 EST 09/28/2022 10:59 EST us Emigdio Veronica MD CHEMISTRY & BLOOD GAS OR DERABLES Final Result [facility] [address] [place] [address] * PROTEIN, TOTAL (09/28/2022 10:48 EST) Blood VENOUS BLOOD / Unknown Venipuncture / Unknown 09/28/2022 10:48 EST 09/28/2022 10:59 EST us Emigdio Veronica MD CHEMISTRY & BLOOD GAS OR DERABLES Final Result [facility] [address] [place] [address] * (ABNORMAL) COMPLETE BLOOD COUNT (09/28/2022 10:48 EST) WBC 2.90(L) 4.00 - 12.40 K/cmm 09/28/2022 11:59 [facility] RBC 3.75(L) 3.86 - 5.04 M/cmm 09/28/2022 11:59 [facility] Hemoglobin 10.5(L) 11.6 - 15.2 gm/dL 09/28/2022 11:59 [facility] HCT 32.8(L) 34.9 - 44.4 % 09/28/2022 11:59 [facility] MCV 88 81 - 98 fl 09/28/2022 11:59 [facility] MCH 28.0 26.7 - 33.3 pg 09/28/2022 11:59 [facility] MCHC 32.0(L) 32.1 - 35.9 gm/dL 09/28/2022 11:59 [facility] RDW-CV 15.9(H) <14.7 % 09/28/2022 11:59 [facility] RDW-SD 50.4(H) <50.4 fl 09/28/2022 11:59 [facility] PLT 83(L) 141 - 377 K/cmm 09/28/2022 11:59 [facility] MPV 10.3 9.5 - 12.7 fl 09/28/2022 11:59 [facility] Blood VENOUS BLOOD / Unknown Venipuncture / Unknown 09/28/2022 10:48 EST 09/28/2022 10:59 EST Dana Padilla MD HEMATOLOGY & PF4 ORDERABLES Pricila l Result Performing Organization Address City/[facility]/ZIP Co de Phone Number [facility] [address] [place] [address] * (ABNORMAL) METHYLMALONIC ACID (09/28/2022 10:48 EST) Methylmalonic Acid, QN, S 0.54(H) <=0.40 nmol/mL 09/30/2022 10:49 EST [facility] Comment: In this sample, the concentration of methylmalonic acid (MMA) was minimally elevated. As the upper limit of the reference range varies in different laboratories from 0.4 to 0.6 nmol/mL. This finding could be considered normal, especially if the patient does not show other signs of vitamin B12 deficiency. ADDITIONAL INFORMATION This test was developed and its performance characteristics determined by [facility] in a manner consistent with CLIA requirements. This test has not been cleared or approved by the U.S. Food and Drug Administration. Test Performed by: [address] [address] [place]: Jesus Stanford M.D. Ph.D.; CLIA# [id number] Blood VENOUS BLOOD / Unknown Venipuncture / Unknown 09/28/2022 10:48 EST 09/28/2022 10:59 EST us Emigdio Veronica MD CHEMISTRY & BLOOD GAS OR DERABLES Final Result Performing Organization Address City/[facility]/ZIP Co de Phone Number [address] [address] * (ABNORMAL) HOMOCYSTEINE (09/28/2022 10:48 EST) Homocysteine 15.9(H) 5.0 - 13.9 umol/L 09/29/2022 9:27 EST [facility] Comment:Results may be false ly elevated if sample is not collected on ice or is not removed from cells within 1 hour of collection. Blood VENOUS BLOOD / Unknown Venipuncture / Unknown 09/28/2022 10:48 EST 09/28/2022 10:59 EST Narrative [facility] - 09/29/2022 9:27 EST Reference range may not apply to non-fasting samples. ??It is not recommended that EDTA plasma and serum from the same patient be used interchangeably. ??Serum concentrations have been observed to be up to 10% higher than EDTA plasma. Reference range may not apply to serum results. us Emigdio Veronica MD CHEMISTRY & BLOOD GAS OR DERABLES Final Result [facility] [address] [place] [address] documented in this encounter Visit Diagnoses Diagnosis Numbness in both hands Disturbance of skin sensation Thrombocytopenia ([facility]) Thrombocytopenia, unspecified documented in this encounter Care Teams Engine Repairer Relationship Specialty Start Date End Date Emigdio Veronica MD [address] [place] [phone] PCP - General Internal Medicine - Primary Care 05/22/20 02/21/24 documented as of this encounter
--- OUTSIDE RECORDS SUMMARY | 2024-11-22 17:00 | XMS_ITS | Encounter Summary ---
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 90 Tablet 3 10/04/2022 12/23/2022 documented in this encounter Miscellaneous Notes * Telephone Encounter - Zully Guerrier - 10/04/2022 1050 EST Requested Prescriptions Pending Prescriptions Disp Refills ??? sertraline (ZOLOFT) 50 mg tablet Sig: Take 1 Tablet by mouth daily. [facility]/pharmacy #[id number] - [place], [place] - [address] [place] [address] Confirmed Pharmacy? Yes Patient out of medication? No Last Refill Date: Refills left? (explain exceptions requiring early refill) No Recent Visits Date Type Provider Dept 09/29/22 Office Visit Emigdio Veronica MD [facility] Adult Prim Care 09/17/22 Office Visit Emigdio Veronica MD [facility] Adult Prim Care 08/11/22 Office Visit Emigdio Veronica MD [facility] Adult Prim Care 07/29/22 Office Visit Scottie Campuzano PA-C [facility] Adult Prim Care 07/16/22 Office Visit [facility] 06/25/22 Office Visit Emigdio Veronica MD [facility] Adult Prim Care 05/20/22 Office Visit Nguyen Nolasco NP [facility] Adult Prim Care 02/17/22 Office Visit Emigdio Veronica MD [facility] Adult Prim Care 02/10/22 Office Visit Darlene Rollins NP [facility] 01/27/22 Office Visit Osmany [place] MD [facility] Adult Prim Care Showing recent visits within past 540 days with a meds authorizing provider and meeting all other requirements Future Appointments Date Type Provider Dept 10/29/22 Appointment Emigdio Veronica MD [facility] [place] Adult Prim Care 11/25/22 Appointment Emigdio Veronica MD [facility] [place] Adult Prim Care Showing future appointments within next 150 days with a meds authorizing provider and meeting all other requirements Future appointment: Other Pt was seen by [facility] 09/29/22 Zully uGerrier 10/04/2022 10:50 documented in this encounter Plan of Treatment Upcoming Encounters Date Type Department Care Team (Late st Contact Info) Description 01/04/2025 13:00 EST Office Visit [facility] Ophthalmology - [address] [address] Gagandeep Rome MD [address] [place] [address] [address] [place] [phone] 02/11/2025 13:30 EDT Telemedicine [facility] Hematology & Oncology [address] [phone] Dana Padilla MD [address] [place] [address] [address] [place] [phone] documented as of this encounter Visit Diagnoses Not on filedocumented in this encounter Discontinued Medications Medication Sig Discontinue Reason Start Date End Da te sertraline (ZOLOFT) 50 mg tablet Take 50 mg by mouth daily. Reorder 10/04/2022 documented as of this encounter Care Teams Wet Finisher Wool Relationship Specialty Start Date End Date Emigdio Veronica MD [address] [place] [phone] PCP - General Internal Medicine - Primary Care 05/22/20 02/21/24 documented as of this encounter
--- OUTSIDE RECORDS SUMMARY | 2024-11-22 17:00 | XMS_ITS | Encounter Summary ---
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 30 Tablet 3 11/02/2022 02/07/2023 documented in this encounter Miscellaneous Notes * Telephone Encounter - Jes Mayorga RN - 11/02/2022 1642 EST Not on current medication list. Routing to pcp. * Telephone Encounter - Estefania Guerrierine - 11/02/2022 1632 EST Requested Prescriptions Pending Prescriptions Disp Refills ??? ferrous sulfate 324 mg (65 mg iron) tablet,delayed release (DR/EC) 30 Tablet 3 Sig: Take 1 Tablet by mouth every 48 hours. [facility]/pharmacy #[id number] - [address] Confirmed Pharmacy? Yes Patient out of medication? Yes: Needs Refill Now- will be tomorrow Last Refill Date: 11/10 Refills left? (explain exceptions requiring early refill) No Recent Visits Date Type Provider Dept 09/29/22 Office Visit Emigdio Veronica MD [facility] Adult Prim Care 09/17/22 Office Visit Emigdio Veronica MD [facility] Adult Prim Care 08/11/22 Office Visit Emigdio Veronica MD [facility] [place] [facility] 07/29/22 Office Visit Scottie Campuzano PA-C [facility] [place] Adult Prim Care 07/16/22 Office Visit Scottie Campuzano PA-C [facility] [place] Adult Prim Care 06/25/22 Office Visit Emigdio Veronica MD [facility] Adult Prim Care 05/20/22 Office Visit Nguyen Nolasco NP [facility] [place] Adult Prim Care 02/17/22 Office Visit Emigdio Veronica MD [facility] Adult Prim Care 01/27/22 Office Visit Osmany Matthews MD [facility] [place] Adult Prim [facility] 11/25/21 Office Visit Emigdio Veronica MD [facility] [place] Adult Prim Care Showing recent visits within past 540 days with a meds authorizing provider and meeting all other requirements Future Appointments Date Type Provider Dept 11/09/22 Appointment Emigdio Veronica MD [facility] [place] Adult Prim [facility] 11/25/22 Appointment [facility] Showing future appointments within next 150 days with a meds authorizing provider and meeting all other requirements Future appointment: Already Scheduled Zully Guerrier 11/02/2022 16:33 documented in this encounter Plan of Treatment Upcoming Encounters Date Type Department Care Team (Late st Contact Info) Description 01/04/2025 13:00 EST Office Visit [facility] Ophthalmology - [address] [id number] Gagandeep Roem MD [address] [place] [address], [facility] [address] [place] [phone] 02/11/2025 13:30 EDT Telemedicine [facility] Hematology & Oncology [address] [id number] Dana Padilla MD [address] [place] [address], [facility] [address] [place] [phone] documented as of this encounter Visit Diagnoses Not on filedocumented in this encounter Care Teams Pipe Blanks Cut Off Saw Operator Relationship Specialty Start Date End Date Emigdio Veronica MD [address] [place] [id number] PCP - General Internal Medicine - Primary Care 05/22/20 02/21/24 documented as of this encounter
--- OUTSIDE RECORDS SUMMARY | 2024-11-22 17:00 | XMS_ITS | Encounter Summary ---
Author Organization [facility] Address [address] [place] [address] Care Team Providers Care Care Management Associate Name Role Phone Emigdio Veronica MD Primary Care Provider + Reason for Visit * Reason Comments Rectal Bleeding Pt arrives via wheel chair to triage from hemotologist appointment. Pt states she had eh red blood per rectum this morning, hx of GI bleeds. Pt no longer on blood thinner. Pt endorses dizziness and light headedness. Pt reports nausea, no vomiting. 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 No / Unsure 09/20/2022 17:08 EDT documented as of this encounter Last Filed Vital Signs Vital Sign Reading Time Taken Comments Blood Pressure 132/82 09/21/2022 0640 EDT Pulse 86 09/21/2022 0640 EDT Temperature 36.1 ??C (97 ??F) 09/20/2022 1708 EDT Respiratory Rate 16 09/21/2022 0640 EDT Oxygen Saturation 95% 09/21/2022 0640 EDT Inhaled Oxygen Concentration - - Weight 108.9 kg (240 lb) 09/20/20221707 EDT Height 162.6 cm (5' 4) 09/20/20221707 EDT Body Mass Index 41.2 09/20/2022 170 EDT documented in this encounter Functional Status [...] documented in this encounter Discharge Summaries * Jayden Brown MD - 09/21/2022 0642 EDT ED Observation Discharge Note Reason for observation: GI Bleed Relevant diagnoses established: Final diagnoses: Abdominal pain, lower Acute GI bleeding Complications: none Procedures performed: none Summary of treatment rendered: 1000 ml IV fluids, 0.5 mg hydromorphone, 4 mg ondansetorn Examination at the conclusion of ED Observation: Repeat hemoglobin at 5 AM was 11.8, up from 10.3 at 1:40 AM. Patient resting comfortably, normal vital signs including normal blood pressure and normal oxygen saturation on room air. Very mild LUQ abdominal tenderness to palpation with no rebound or guarding. Reports no further bowel movement since prior evaluation. No nausea or vomiting since prior evaluation. Condition upon discharge: Stable Medication List CONTINUE taking these medications OXYGEN-AIR DELIVERY SYSTEMS [facility] [place] AS[place] your doctor about these medications albuterol 90 mcg/actuation inhaler Inhale 1-2 Puffs as directed every 4 hours as needed for Wheezing. chlorzoxazone 500 mg tablet Commonly known as: PARAFON FORTE TAKE 1 TABLET BY MOUTH THREE TIMES A DAY NEEDED FOR MUSCLE SPASMS diclofenac sodium gel Apply 2 g topically 2 times daily as needed for Pain (Knee pain). furosemide 20 mg tablet Commonly known as: LASIX Take 2 Tablets by mouth 2 times daily. Until seen by PCP. gabapentin 300 mg capsule Commonly known as: NEURONTIN Take 1 capsule by mouth 3 times daily. Incruse Ellipta 62.5 mcg/actuation Generic drug: umeclidinium INHALE 1 PUFF BY MOUTH DIRECTED DAILY ketotifen 0.025 % (0.035 %) ophthalmic solution Commonly known as: ZADITOR PLACE 1 DROP INTO BOTH EYES 2 TIMES DAILY NEEDED (EYE IRRITATION). DO NOT EXCEED 2 APPLICATIONS PER DAY levothyroxine 25 mcg tablet Commonly known as: SYNTHROID Take 1 Tablet by mouth daily before breakfast. lidocaine 4 % patch Apply to back once daily as needed for pain. Remove after 12 hours of use. naloxone 4 mg/actuation nasal spray Commonly known as: NARCAN 0.1 mL by nasal route as needed for Opioid Reversal. Repeat every 2-3 minutes if not effective and overdose is suspected. (spray is harmless in excess). ondansetron 4 mg tablet Commonly known as: ZOFRAN Take 1 Tablet by mouth every 8 hours as needed for Nausea. oxyCODONE 5 mg immediate release tablet Commonly known as: ROXICODONE Take 1-2 Tablets by mouth 3 times daily as needed for Pain. Daily Max: 20 mg pantoprazole 40 mg tablet Commonly known as: PROTONIX Take 1 Tablet by mouth 2 times daily. sertraline 50 mg tablet Commonly known as: ZOLOFT spironolactone 100 mg tablet Commonly known as: ALDACTONE Take 1 Tablet by mouth daily for 90 days. sucralfate 1 gram tablet Commonly known as: CARAFATE TAKE 1 TABLET BY MOUTH FOUR TIMES A DAY traZODone 100 mg tablet Commonly known as: DESYREL Take 2 Tablets by mouth at bedtime. Patient specific instructions: Discharge Instructions You were seen in the emergency department for abdominal pain and blood in your stool. We performed lab tests, which showed that your hemoglobin is stable. Please follow-up with your primary care provider to obtain a repeat test of your hemoglobin in 2 to [address] days[address] We performed a CT scan, which showed a 2 cm nodule in your lung, which could be benign but could also be cancer. It is very important for you to follow-up with your primary care doctor about further imaging of this nodule. This could enable you to detect lung cancer early, while it is still treatable. Return to the emergency department if you experience worsening pain, more blood in your stool, or any other symptoms you find concerning. Disposition: Discharged Observation start: 09/20/222305 Observation stop: 09/21/22631 Observation duration (HH:MM): 07:26 Jayden Brown MD 09/21/2022 documented in this encounter Discharge Instructions * Discharge Instructions* Jayden Brown MD - 09/21/2022 6:50 EDT You were seen in the emergency department for abdominal pain and blood in your stool. We performed lab tests, which showed that your hemoglobin is stable. Please follow-up with your primary care provider to obtain a repeat test of your hemoglobin in 2 to 3 days. We performed a CT scan, which showed a 2 cm nodule in your lung, which could be benign but could also be cancer. It is very important for you to follow-up with your primary care doctor about further imaging of this nodule. This could enable you to detect lung cancer early, while it is still treatable. Return to the emergency department if you experience worsening pain, more blood in your stool, or any other symptoms you find concerning. documented in this encounter Medications at Time of Discharge diclofenac sodium gel Apply 2 g topically 2 times daily as needed for Pain (Knee pain). 50 g 1 06/25/2022 INCRUSE ELLIPTA 62.5 mcg/actuationIndi cations:Chronic obstructive pulmonary disease, unspecified COPD type ([facility]) INHALE 1 PUFF BY MOUTH [...] NEEDED FOR MUSCLE SPASMS 90 Tablet 1 06/28/2022 2 furosemide (LASIX) 20 mg tabletIndications :Bilateral lower extremity edema Take 2 Tablets by mouth 2 times daily. Until seen by PCP. 07/22/2022 2 gabapentin (NEURONTIN) 300 mg capsule Take 1 capsule by mouth 3 times daily. 45 capsule 09/08/2022 2 ketotifen (ZADITOR) 0.025 % (0.035 %) ophthalmic solution PLACE 1 DROP INTO BOTH EYES 2 TIMES DAILY NEEDED (EYE IRRITATION). DO NOT EXCEED 2 APPLICATIONS PER DAY 5 mL 1 09/10/2022 2 levothyroxine (SYNTHROID) 25 mcg tablet Take 1 Tablet by mouth daily before breakfast. 90 Tablet 1 05/20/2022 2 lidocaine 4 % patch Apply to back once daily as needed for pain. Remove after 12 hours of use. 30 Patch 1 06/25/2022 3 ondansetron (ZOFRAN) 4 mg tablet Take 1 Tablet by mouth every 8 hours as needed for Nausea. 30 Tablet 1 08/16/2022 2 oxyCODONE (ROXICODONE) 5 mg immediate release tablet Take 1-2 Tablets by mouth 3 times daily as needed for Pain. Daily Max: 20 mg 10 Tablet 09/17/2022 2 pantoprazole (PROTONIX) 40 mg tablet Take 1 Tablet by mouth 2 times daily. 180 Tablet 3 06/21/2022 3 sertraline (ZOLOFT) 50 mg tablet Take 50 mg by mouth daily. 2 spironolactone (ALDACTONE) 100 mg tablet Take 1 Tablet by mouth daily for 90 days. 90 Tablet 1 08/19/2022 2 sucralfate (CARAFATE) 1 gram tablet TAKE 1 TABLET BY MOUTH FOUR TIMES A DAY 120 Tablet 3 05/10/2022 4 traZODone (DESYREL) 100 mg tablet Take 2 Tablets by mouth at bedtime. 180 Tablet 1 08/26/2022 3 documented as of this encounter Discharge Disposition Disposition Code Departure Means Destination Comment s Home or Self Penitentiary upon d/c pt has no complaints. pt verbalized understanding of all instructions. documented in this encounter Progress Notes * Jayden Brown MD - 09/21/2022 0220 EDT ED Observation Note 62F h/o cirrhosis and UGIB p/w GI bleeding. Yesterday had 4 episodes of GI bleeding. Hemoccult negative today. Hgb close to baseline. Got IV fluids here. [ ] f/u repeat CBC, then discharge if stable. Jayden Brown MD 09/21/2022 * Jesus Steele MD - 09/21/2022 0214 EDT ED Observation Note Family History Problem Relation Age of Onset [...] Neg Hx ??? Endometrial Cancer Neg Hx There was diagnostic and dispositional uncertainty at the time of initiation of observation status. Initial assessment: GI bleeding with history of serious duodenal ulcer GI bleeding and abdominal pain and tenderness Observation reassessment: Patient reassessed by me again at 2:15 AM feels better on abdominal exam abdomen now only slight epigastric tenderness without rebound or guarding Repeat hemoglobin was 10.3 down from the first hemoglobin of 11.5 Given the severity of her previous GI bleeding our plan is to observe her for several more hours till the morning ensure that she has no further bleeding and reassess stability for discharge she willbe signed out to the overnight team Disposition: ED Observation Observation start: 09/20/222305 Jesus Steele MD 09/21/2022 documented in this encounter ED Notes * Jesus Steele MD - 09/20/2022 2220 EDT Emergency Department Visit Assessment and ED Course MDM Number of Diagnoses or Management Options Abdominal pain, lower: new, needed workup Acute GI bleeding: new, needed workup Diagnosis management comments: This patient with a history of cirrhosis portal vein thrombosis prior GI bleeding on anticoagulation no longer on anticoagulation describes having had 4 episodes of bleeding per rectum today with bowel movements and abdominal pain. Her exam in the emergency departmentis reassuring except for abdominal tenderness which is mild and without peritoneal signs. There wasno evidence of GI bleeding on physical exam including rectal exam. Work-up was reassuring and that her hemoglobin was stable. Given the uncertainties involved and herhistory of serious bleeding in the past she required further work-up to ascertain her level of stability for disposition to home or inpatient. She was placed on emergency department observation status and her work-up continued. A CAT scan of the abdomen was ordered and obtained and reviewed by me and shows no evidence of acute pathology. She was reevaluated and her symptoms improved although she still has some mild abdominal discomfort. A repeat blood count was ordered and as of 1:32 AM is still pending. Amount and/or Complexity of Data Reviewed Clinical lab tests: reviewed Tests in the radiology section of CPT??: reviewed Review and summarize past medical records: yes Independent visualization of images, tracings, or specimens: yes Disposition: ED Observation Chief complaint: GI bleeding. abd pain Patient presents to the emergency department having been referred from her hematology clinic appointment where she reported having had 4 episodes of bright red blood per rectum today. Early this morning she went to the bathroom had what she describes as a normal bowel movement with associated bloodin her stool. She is unable to describe in detail what the stool look like with it was hard or softstates it was normal and was unable to describe the exact color of the stool other than to state that it was bloody and somewhat bright red. She had 3 additional bowel movements over the course of the day and stated that the stool color went from brighter red to darker red over the course of the day. Nothing in particular made this rectal bleeding better or worse. There was no associated rectal pain. She had associated cramping abdominal pain which was mild to moderate in intensity nonradiating wasgeneralized but now more located in the lower abdomen. She states she has had associated nausea without vomiting and that she attempted to drink today but that seemed to make her abdominal discomfortworse so she feels dehydrated. The patient has a history of upper GI bleeding related to a duodenal ulcer and had been admitted [id number]. At that time she had been on anticoagulation for nonocclusive portal vein thrombosis. Her GI bleed resolved and she had subsequent EGDs that showed resolution of the duodenal ulcer. She also has a history of cirrhosis with chronic portal hypertension hepatic encephalopathy and small esophageal varices The history is provided by the patient and medical records. Rectal Bleeding Quality: Bright red and maroon Amount: Moderate Timing: Intermittent Chronicity: Recurrent Context: defecation Context: not constipation, not diarrhea, not hemorrhoids and not rectal pain Relieved by: Nothing Ineffective treatments: None tried Associated symptoms: abdominal pain Associated symptoms: no dizziness, no epistaxis, no fever, no hematemesis, no light-headedness, no recent illness and no vomiting Abdominal pain: Pain location: lower. Quality: cramping Severity: Mild Onset quality: Gradual Timing: Intermittent Progression: Unchanged Chronicity: New Risk factors: no anticoagulant use and no NSAID use Patient's pertinent PMH, FH, SH were reviewed and edited as necessary. Past Medical History: Diagnosis Date ??? Anemia [...] Per Dr Amelia Tijerina and notes from [facility] patient misconstrued information to several providers about [...] syndrome ??? Hypothyroidism ??? Joint replaced 199912/10/2020 luis knees ??? Mental disorder ??? QUIROZ (nonalcoholic [...] by Starr Paige MD) ??? Thyroid disease Social History Socioeconomic History ??? Marital status: Single Spouse name: Not on file ??? Number of children: 3 ??? Years of education: Not on file ??? Highest education level: Not on file Occupational History ??? 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 Smoking status: Former Smoker Packs/day: 0.25 Years: 35.00 Pack years: 8.75 Types: Cigarettes ??? Smokeless tobacco: Never Used ??? Tobacco comment: smokes couple times a week Vaping Use ??? Vaping Use: Never used Substance and Sexual Activity ??? Alcohol use: No ??? Drug use: Never ??? Sexual activity: Yes Partners: Male control/protection: Surgical Other Topics Concern ??? Not on file Social History Narrative Rents a room from friends in [place] and lives there with her dog. She is disabled. 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 Endometrial Cancer Neg Hx Review of Systems Constitutional: Negative for chills and fever. HENT: Negative for congestion, nosebleeds, sinus pain and sore throat. Respiratory: Positive for shortness of breath. Negative for cough. Basline sob Hx copd Home O2 Cardiovascular: Negative for chest pain and leg swelling. Gastrointestinal: Positive for abdominal pain, blood in stool and hematochezia. Negative for constipation, diarrhea, hematemesis, nausea and vomiting. Genitourinary: Negative for dysuria and urgency. Musculoskeletal: Negative for myalgias and neck pain. Skin: Negative for itching and rash. Neurological: Negative for dizziness, light-headedness and headaches. Physical Exam BP 114/62 Pulse 78 Temp 36.1 ??C (97 ??F) (Temporal) Resp 15 Ht 162.6 cm (64) Wt (!) 108.9 kg (240 lb) SpO2 97% BMI 41.20 kg/m?? A medical screening exam was performed. Physical Exam Vitals and nursing note reviewed. Constitutional: General: She is not in acute distress. Appearance: She is not diaphoretic. HENT: Nose: No nasal discharge. Mouth/Throat: Mouth: Mucous membranes are moist. Pharynx: Oropharynx is clear. Normal. Eyes: General: No scleral icterus. Conjunctiva/sclera: Conjunctivae normal. Cardiovascular: Rate and Rhythm: Normal rate and regular rhythm. Heart sounds: No murmur heard. No gallop. Pulmonary: Effort: Pulmonary effort is normal. Breath sounds: Normal breath sounds. Abdominal: General: There is no distension. Palpations: Abdomen is soft. Tenderness: There is abdominal tenderness in the right lower quadrant and left lower quadrant. There is no guarding or rebound. Comments: Mild lower tenderness Genitourinary: Comments: Rectal exam was performed in the presence of a female nurse heating element builder was nontender therewas no stool on digital exam just some brown mucus that was Hemoccult negative Musculoskeletal: General: No tenderness or edema. Cervical back: Neck supple. Skin: General: Skin is warm and dry. Neurological: Mental Status: She is alert. Motor: No abnormal muscle tone. Coordination: Coordination normal. Psychiatric: Mood and Affect: Mood and affect normal. Behavior: Behavior normal. Thought Content: Thought content normal. Laboratory data was reviewed and independently interpreted. Procedures Procedures documented in this encounter Plan of Treatment Upcoming Encounters Date Type Department Care Team (Late st Contact Info) Description 01/04/2025 13:00 EST Office Visit [facility] Ophthalmology - [address] [phone] Gagandeep Rome MD [address] [place] [address], [address] [place] [phone] 02/11/2025 13:30 EDT Telemedicine [facility] Hematology & Oncology [address] [phone] Dana Padilla MD [address] [place] [address], [facility] [address] [place] [phone] documented as of this encounter Procedures Procedure Name Priority Date/Time Associated Diagnosis Comments COMPLETE BLOOD COUNT AND DIFFERENTIAL STAT 09/21/2022 5:04 EDT COMPLETE BLOOD COUNT Routine 09/21/2022 1:[address] ABDOMEN PELVIS W CONTRAST STAT 09/20/2022 23:54 EDT TYPE AND SCREEN STAT 09/20/2022 20:54 EDT HOLD SST Routine 09/20/2022 19:46 EDT HOLD LAVENDER TOP Routine 09/20/2022 19: 46 EDT HOLD GREEN TOP Routine 09/20/2022 19:46 EDT HOLD BLUE TOP Routine 09/20/2022 19:46 EDT PROTIME Add-On 09/20/2022 19:46 EDT COMPLETE BLOOD COUNT AND DIFFERENTIAL STAT Add-on 09/20/2022 19:46 EDT MAGNESIUM STAT Add-on 09/20/2022 19:46 EDT LIPASE Add-On 09/20/2022 19:46 EDT HEPATIC FUNCTION PANEL (ALB,ALK PHOS,ALT,AST,DBIL,TO T LUIS,TOT PROT) STAT Add-on 09/20/2022 19:46 EDT BASIC METABOLIC PANEL (BMP) STAT Add-on 09/20/2022 19:46 EDT documented in this encounter Results * (ABNORMAL) COMPLETE BLOOD COUNT AND DIFFERENTIAL (09/21/2022 5:04 EDT) WBC 4.54 4.00 - 12.40 K/cmm 09/21/2022 5:15 [facility] RBC 4.27 3.86 - 5.04 M/cmm 09/21/2022 5:15 [facility] Hemoglobin 11.8 11.6 - 15.2 gm/dL 09/21/2022 5:15 [facility] HCT 37.7 34.9 - 44.4 % 09/21/2022 5:15 [facility] MCV 88 81 - 98 fl 09/21/2022 5:15 [facility] MCH 27.6 26.7 - 33.3 pg 09/21/2022 5:15 [facility] MCHC 31.3(L) 32.1 - 35.9 gm/dL 09/21/2022 5:15 [facility] RDW-CV 15.8(H) <14.7 % 09/21/2022 5:15 [facility] RDW-SD 51.4(H) <50.4 fl 09/21/2022 5:15 [facility] PLT 109(L) 141 - 377 K/cmm 09/21/2022 5:15 [facility] MPV 10.6 9.5 - 12.7 fl 09/21/2022 5:15 [facility] % Neutrophils 76.2 % 09/21/2022 5:15 [facility] % Lymphocytes 9.9 % 09/21/2022 5:15 [facility] % Monocytes 11.7 % 09/21/2022 5:15 [facility] % Eosinophils 1.3 % 09/21/2022 5:15 [facility] % Basophils 0.7 % 09/21/2022 5:15 [facility] % Immature Grans 0.2 % 09/21/20 5:15 [facility] Absolute Neutrophils 3.46 2.20 - 8.85 K/cmm 09/21/2022 5:15 [facility] Absolute Lymphocytes 0.45(L) 1.09 - 3.30 K/cmm 09/21/2022 5:15 [facility] Absolute Monocytes 0.53 0.10 - 0.80 K/cmm 09/21/2022 5:15 [facility] Absolute Eosinophils 0.06 0.03 - 0.61 K/cmm 09/21/2022 5:15 [facility] ABS Basophils 0.03 0.01 - 0.11 K/cmm 09/21/2022 5:15 [facility] Absolute Immature Grans 0.01 0.00 - 0.06 K/cmm 09/21/2022 5:15 [facility] Type of Differential: Auto 09/21/2022 5:15 [facility] Blood VENOUS BLOOD / Unknown Venipuncture / Unknown 09/21/2022 5:04 EDT 09/21/2022 5:07 EDT us Jayden Brown MD PACKAGES & DNA PROBE ORDERABL ES Final Result [facility] [address] [place] [address] * (ABNORMAL) COMPLETE BLOOD COUNT (09/21/2022 1:40 EDT) WBC 3.30(L) 4.00 - 12.40 K/cmm 09/21/2022 1:51 EDT [facility] RBC 3.70(L) 3.86 - 5.04 M/cmm 09/21/2022 1:51 EDT [facility] Hemoglobin 10.3(L) 11.6 - 15.2 gm/dL 09/21/2022 1:51 [facility] HCT 32.4(L) 34.9 - 44.4 % 09/21/2022 1:51 [facility] MCV 88 81 - 98 fl 09/21/2022 1:51 [facility] MCH 27.8 26.7 - 33.3 pg 09/21/2022 1:51 [facility] MCHC 31.8(L) 32.1 - 35.9 gm/dL 09/21/2022 1:51 [facility] RDW-CV 15.8(H) <14.7 % 09/21/2022 1:51 [facility] RDW-SD 50.8(H) <50.4 fl 09/21/2022 1:51 [facility] PLT 91(L) 141 - 377 K/cmm 09/21/2022 1:51 [facility] MPV 10.1 9.5 - 12.7 fl 09/21/2022 1:51 [facility] Blood VENOUS BLOOD / Unknown Venipuncture / Unknown 09/21/2022 1:40 EDT 09/21/2022 1:45 EDT us Jesus Steele MD HEMATOLOGY & PF4 ORDERABLES F inal Result [facility] [address] [place] [address] * CT ABDOMEN PELVIS W CONTRAST (09/20/2022 23:54 EDT) Anatomical Region Laterality Modality Body, Abdomen, Pelvis, Abdomen and Pelvis Computed Tomography 09/21/2022 10:3 1 EDT Impressions 09/21/2022 10:31 EDT 1. ??No acute abnormality within the abdomen or pelvis. 2. ??Extensive portal and splenic venous thrombosis. Extensive thrombosis in the distal splenic vein and distal left portal vein appears increased compared to CT angiogram from 04/23/2022. 3. ??Partially infarcted spleen status post embolization, unchanged from prior. 4. ??Redemonstrated cirrhotic configuration of the liver. 5. ??Unchanged 2 cm nodule in the left lung base, remains concerning for malignancy. Consider PET/CT on a nonemergent outpatient basis. I have personally reviewed the images and the above interpretation and agree with the findings. Narrative 09/21/2022 10:[address] ABDOMEN PELVIS W CONTRAST ??09/20/2022 11:20 PM Signs and Symptoms/Comments: ?? LLQ abd pain and rectal bleeding Technique: CT of the abdomen and pelvis was performed following the administration intravenous contrast; coronal and sagittal multiplanar reconstructions generated. Comparison: CT abdomen pelvis 06/09/2022 and 04/23/2022. Findings: Lower chest: Unchanged 2 cm solid nodule in the left lung base, unchanged compared to 06/09/2022 Hepatobiliary: Cirrhotic configuration of the liver. No concerning focal hepatic lesion. Stable mild extrahepatic biliary ductal dilatation, likely related to age and postcholecystectomy state. Spleen, pancreas, adrenal glands: Unchanged appearance of the partially infarcted spleen status post embolization, similar to 04/23/2022. No pancreatic ductal dilatation. Unchanged thickening of the left adrenal gland. Kidneys, ureters, bladder: The kidneys enhance symmetrically. No calculi or hydroureteronephrosis. The bladder is normal. Uterus, ovaries: The uterus is surgically absent. No concerning adnexal mass. Bowel: No bowel obstruction or acute inflammatory change. Status post appendectomy. There are a few scattered colonic diverticula. Peritoneal cavity / Subperitoneal space: Small volume perisplenic fluid, similar to prior. No free air. Lymphovascular: Previously seen thrombus in the splenic vein, main portal vein, and left portal vein is redemonstrated. There is evidence of interval increase in volume of thrombus involving the distal splenic vein (axial image 192) as well as involving the distal left portal vein (axial image 63). Systemic collaterals are again noted. Abdominal vasculature is otherwise patent. No enlarged lymph nodes are present in the abdomen or pelvis. Abdominal wall: Abdominal wall is intact. There are postsurgical changes from prior abdominal wall mesh repair involving the right anterior abdomen. There is skin thickening and fat stranding involving the lower panniculus. Focal calcification is noted within the subcutaneous gluteal fat bilaterally, likely sequela of fat necrosis. Musculoskeletal: No concerning focal osseous lesion is identified. Degenerative changes are present in the lower thoracic and lumbar spine. Mild degenerative changes are also noted involving the bony pelvis including both hips and sacroiliac joints. Car Runner: No additional findings. Procedure Note Prasanna Rey MD - 09/21/2022 CT ABDOMEN PELVIS W CONTRAST 09/20/2022 11:20 PM Signs and Symptoms/Comments: LLQ abd pain and rectal bleeding Technique: CT of the abdomen and pelvis was performed following the administrationintravenous contrast; coronal and sagittal multiplanar reconstructionsgenerated. Comparison: CT abdomen pelvis 06/09/2022 and 04/23/2022. Findings: Lower chest: Unchanged 2 cm solid nodule in the left lung base, unchangedcompared to 06/09/2022 Hepatobiliary: Cirrhotic configuration of the liver. No concerning focalhepatic lesion. Stable mild extrahepatic biliary ductal dilatation, likelyrelated to age and postcholecystectomy state. Spleen, pancreas, adrenal glands: Unchanged appearance of the partiallyinfarcted spleen status post embolization, similar to 04/23/2022. Nopancreatic ductal dilatation. Unchanged thickening of the left adrenalgland. Kidneys, ureters, bladder: The kidneys enhance symmetrically. No calculior hydroureteronephrosis. The bladder is normal. Uterus, ovaries: The uterus is surgically absent. No concerning adnexalmass. Bowel: No bowel obstruction or acute inflammatory change. Status postappendectomy. There are a few scattered colonic diverticula. Peritoneal cavity / Subperitoneal space: Small volume perisplenic fluid,similar to prior. No free air. Lymphovascular: Previously seen thrombus in the splenic vein, main portalvein, and left portal vein is redemonstrated. There is evidence ofinterval increase in volume of thrombus involving the distal splenic vein(axial image 192) as well as involving the distal left portal vein (axialimage 63). Systemic collaterals are again noted. Abdominal vasculature is otherwisepatent. No enlarged lymph nodes are present in the abdomen or pelvis. Abdominal wall: Abdominal wall is intact. There are postsurgical changesfrom prior abdominal wall mesh repair involving the right anteriorabdomen. There is skin thickening and fat stranding involving the lowerpanniculus. Focal calcification is noted within the subcutaneous glutealfat bilaterally, likely sequela of fat necrosis. Musculoskeletal: No concerning focal osseous lesion is identified.Degenerative changes are present in the lower thoracic and lumbar spine.Mild degenerative changes are also noted involving the bony pelvisincluding both hips and sacroiliac joints. Car Runner: No additional findings. IMPRESSION 1. No acute abnormality within the abdomen or pelvis. 2. Extensive portal and splenic venous thrombosis. Extensive thrombosisin the distal splenic vein and distal left portal vein appears increasedcompared to CT angiogram from 04/23/2022. 3. Partially infarcted spleen status post embolization, unchanged fromprior. 4. Redemonstrated cirrhotic configuration of the liver. 5. Unchanged 2 cm nodule in the left lung base, remains concerning formalignancy. Consider PET/CT on a nonemergent outpatient basis. I have personally reviewed the images and the above interpretation andagree with the findings. Jesus Steele MD IM CT ORDERABLES Final Resul t * TYPE AND SCREEN (09/20/2022 20:54 EDT) ABO O 09/20/2022 21:50 EDT [facility] Rh Factor Positive 09/20/2022 21:50 EDT [facility] Antibody Screen Negative 09/20/2022 21:50 T [facility] Specimen Expires: 09/23/2022 @ 23:59 09/20/2022 21:50 EDT [facility] Blood VENOUS BLOOD / Unknown Venipuncture / Unknown 09/20/2022 20:54 EDT 09/20/2022 21:03 EDT Jesus Steele MD BLOOD BANK TESTS Edited Resul t - Final Performing Organization Address [facility] Co de Phone Number [facility] [address] [place] [address] * LIPASE (09/20/2022 19:46 EDT) Lipase 58 <251 U/L 09/20/2022 21:18 EDT [facility] Blood VENOUS BLOOD / Unknown Venipuncture / Unknown 09/20/2022 19:46 EDT 09/20/2022 19:57 EDT Jesus Steele MD CHEMISTRY & BLOOD GAS ORDERAB LES Final Result Performing Organization Address [facility] de Phone Number [facility] [address] [place] [address] * PROTIME (09/20/2022 19:46 EDT) [facility] I.N.R. 1.0 0.9 - 1.1 Ratio 09/20/2022 20:22 EDT [facility] Pro Time 11.7 9.7 - 12.8 secs 09/20/2022 20:22 EDT [facility] Blood VENOUS BLOOD / Unknown Venipuncture / Unknown 09/20/2022 19:46 EDT 09/20/2022 19:57 EDT Narrative [facility] - 09/20/2022 20:22 EDT Moderate Intensity Coumadin INR = 2.0-3.0 Adjustments in anticoagulant therapy dose should be based on the INR and NOT on the Protime. Jesus Steele MD HEMATOLOGY & PF4 ORDERABLES F inal Result Performing Organization Address [facility] Co de Phone Number [facility] [address] [place] [address] * MAGNESIUM (09/20/2022 19:46 EDT) Magnesium 1.8 1.7 - 2.8 mg/dL 09/20/2022 20:33 EDT [facility] Blood VENOUS BLOOD / Unknown Venipuncture / Unknown 09/20/2022 19:46 EDT 09/20/2022 19:57 EDT us Jesus Steele MD CHEMISTRY & BLOOD GAS ORDERAB LES Final Result Performing Organization Address [facility]/ZIP Co de Phone Number [facility] [address] [place] [address] * (ABNORMAL) BASIC METABOLIC PANEL (BMP) (09/20/2022 19:46 EDT) Sodium 139 136 - 145 mmol/L 09/20/2022 20:33 EDT [facility] Potassium 4.2 3.5 - 5.0 mmol/L 09/20/2022 20:33 EDT [facility] Chloride 99 96 - 110 mmol/L 09/20/2022 20:33 [facility] CO2 Total 30 22 - 32 mmol/L 09/20/2022 20:33 [facility] Anion Gap 10 5 - 14 09/20/2022 20:33 [facility] Glucose 84 70 - 100 mg/dL 09/20/2022 20:33 [facility] Calcium 9.0 8.5 - 10.5 mg/dL 09/20/2022 20:33 [facility] BUN 14 10 - 26 mg/dL 09/20/2022 20:33 [facility] Creatinine 1.20(H) 0.52 - 1.04 mg/dL 09/20/2022 20:33 [facility] eGFR 51(L) >60 mL/min/1.73 m2 09/20/2022 20:33 [facility] Blood VENOUS BLOOD / Unknown Venipuncture / Unknown 09/20/2022 19:46 EDT 09/20/2022 19:57 EDT us Jesus Steele MD CHEMISTRY & BLOOD GAS ORDERAB LES Final Result Performing Organization Address City/[facility]/ZIP Co de Phone Number [facility] [address] [place] [address] * (ABNORMAL) HEPATIC FUNCTION PANEL (ALB,ALK PHOS,ALT,AST,DBIL,TOT LUIS,TOT PROT) (09/20/2022 19:46 EDT) Pathologist [facility] Total Protein 7.3 6.3 - 8.2 g/dL 09/20/2022 20:33 T [facility] Albumin 4.0 3.4 - 4.9 g/dL 09/20/2022 20:33 [facility] Bilirubin, Total 0.6 <1.4 mg/dL 09/20/20 20:33 [facility] Conjugated Bilirubin 0.0 <=0.3 mg/dL 09/20/2022 20:33 [facility] Unconjugated Bilirubin 0.3 <=1.1 mg/dL 09/20/2022 20:33 [facility] Alkaline Phosphatase 141(H) 38 - 126 U/L 09/20/2022 20:33 [facility] ALT 18 <35 U/L 09/20/2022 20:33 [facility] AST 31 15 - 46 U/L 09/20/2022 20:33 [facility] Calculated Total Bilirubin 0.3 <1.4 mg/dL 09/20/2022 20:33 [facility] Blood VENOUS BLOOD / Unknown Venipuncture / Unknown 09/20/2022 19:46 EDT 09/20/2022 19:57 EDT us Jesus Steele MD CHEMISTRY & BLOOD GAS ORDERAB LES Final Result [facility] [address] [place] [address] * (ABNORMAL) COMPLETE BLOOD COUNT AND DIFFERENTIAL (09/20/2022 19:46 EDT) Pathologist [facility] WBC 4.03 4.00 - 12.40 K/cmm 09/20/2022 20:21 T [facility] RBC 4.08 3.86 - 5.04 M/cmm 09/20/2022 20:21 [facility] Hemoglobin 11.5(L) 11.6 - 15.2 gm/dL 09/20/2022 20:21 [facility] HCT 35.8 34.9 - 44.4 % 09/20/2022 20:21 [facility] MCV 88 81 - 98 fl 09/20/2022 20:21 [facility] MCH 28.2 26.7 - 33.3 pg 09/20/2022 20:21 [facility] MCHC 32.1 32.1 - 35.9 gm/dL 09/20/2022 20:21 [facility] RDW-CV 15.5(H) <14.7 % 09/20/2022 20:21 [facility] RDW-SD 50.4(H) <50.4 fl 09/20/2022 20:21 [facility] PLT 95(L) 141 - 377 K/cmm 09/20/2022 20:21 [facility] MPV 10.1 9.5 - 12.7 fl 09/20/2022 20:21 [facility] % Neutrophils 76.0 % 09/20/2022 20:21 [facility] % Lymphocytes 10.7 % 09/20/2022 20:21 [facility] % Monocytes 11.4 % 09/20/2022 20:21 [facility] % Eosinophils 1.2 % 09/20/2022 20:21 [facility] % Basophils 0.5 % 09/20/2022 20:21 [facility] % Immature Grans 0.2 % 09/20/20 20:21 [facility] Absolute Neutrophils 3.06 2.20 - 8.85 K/cmm 09/20/2022 20:21 [facility] Absolute Lymphocytes 0.43(L) 1.09 - 3.30 K/cmm 09/20/2022 20:21 [facility] Absolute Monocytes 0.46 0.10 - 0.80 K/cmm 09/20/2022 20:21 EDT [facility] Absolute Eosinophils 0.05 0.03 - 0.61 K/cmm 09/20/2022 20:21 EDT [facility] ABS Basophils 0.02 0.01 - 0.11 K/cmm 09/20/2022 20:21 T [facility] Absolute Immature Grans 0.01 0.00 - 0.06 K/cmm 09/20/2022 20:21 EDT [facility] Type of Differential: Auto 09/20/2022 20:21 EDT [facility] Blood VENOUS BLOOD / Unknown Venipuncture / Unknown 09/20/2022 19:46 EDT 09/20/2022 19:57 EDT us Jesus Steele MD PACKAGES & DNA PROBE ORDERABL ES Final Result Performing Organization Address City/[facility]/ZIP Co de Phone Number [facility] [address] [place] [address] * HOLD BLUE TOP (09/20/2022 19:46 EDT) Hold Hold 09/20/2022 21:02 EDT [facility] Blood VENOUS BLOOD / Unknown Venipuncture / Unknown 09/20/2022 19:46 EDT 09/20/2022 19:57 EDT us Fausto Roberts MD LAB INFO SERVICE AND SUPPORT & PHONE RESULT Final Result [facility] [address] [place] [address] * HOLD LAVENDER TOP (09/20/2022 19:46 EDT) Hold Hold 09/20/2022 21:02 EDT [facility] Blood VENOUS BLOOD / Unknown Venipuncture / Unknown 09/20/2022 19:46 EDT 09/20/2022 19:57 EDT us Fausto Roberts MD LAB INFO SERVICE AND SUPPORT & PHONE RESULT Final Result [facility] [address] [place] [address] * HOLD SST (09/20/2022 19:46 EDT) Hold Hold 09/20/2022 21:02 EDT [facility] Blood VENOUS BLOOD / Unknown Venipuncture / Unknown 09/20/2022 19:46 EDT 09/20/2022 19:57 EDT us Fausto Roberts MD LAB INFO SERVICE AND SUPPORT & PHONE RESULT Final Result Performing Organization Address [facility] Co de Phone Number [facility] [address] [place] [address] * HOLD GREEN TOP (09/20/2022 19:46 EDT) Hold Hold 09/20/2022 21:02 EDT [facility] Blood VENOUS BLOOD / Unknown Venipuncture / Unknown 09/20/2022 19:46 EDT 09/20/2022 19:57 EDT us Fausto Roberts MD LAB INFO SERVICE AND SUPPORT & PHONE RESULT Final Result Performing Organization Address City/[facility]/ZIP Co de Phone Number [facility] [address] [place] [address] documented in this encounter Visit Diagnoses Diagnosis Abdominal pain, lower- Primary Abdominal pain, other specified site Acute GI bleeding Hemorrhage of gastrointestinal tract, unspecified documented in this encounter Administered Medications Inactive Administered Medications - up to 3 most recent administrations Medication Order MAR Action Action Date Dose Rate Site HYDROmorphone (PF) (DILAUDID) 0.5 mg/0.5 mL syringe 0.5 mg 0.5 mg, intravenous, NOW X1, 1 dose, On 09/20/22 at 2115, STAT Given 09/20/2022 22:04 EDT 0.5 mg iohexoL (OMNIPAQUE 350) solution 100 mL 100 mL, intravenous, Once in imaging, 1 dose, Starting on Tue09/20/22 at 2339, Until Tue09/20/22 at 2354, Routine, Imaging Protocol Orders Given 09/20/2022 23:54 EDT 100 mL ondansetron (PF) (ZOFRAN) injection 4 mg 4 mg, intravenous, NOW X1, 1 dose, On Tue09/20/22 at 2115, STAT Given 09/20/2022 22:00 EDT 4 mg sodium chloride 0.9 % BOLUS 1,000 mL 1,000 mL, intravenous, NOW X1, 1 dose, On Tue09/20/22 at 2115, STAT New Bag 09/20/2022 21:58 EDT 1,000 mL documented in this encounter Active and Recently Administered Medications Times are shown in EDT. Scheduled Medication Order 09/19/2022 09/20/2022 09/21/2022 HYDROmorphone (PF) (DILAUDID) 0.5 mg/0.5 mL syringe 0.5 mg (COMPLETED) 0.5 mg, intravenous, NOW X1, 1 dose, On Tue09/20/22 at 2115, STAT 2204 (Given - Provider: Chaparrita Kelley, KENN) iohexoL (OMNIPAQUE 350) solution 100 mL (COMPLETED) 100 mL, intravenous, Once in imaging, 1 dose, Starting on Tue09/20/22 at 2339, Until Tue09/20/22 at 2354, Routine, Imaging Protocol Orders 2354 (Given - Provider: Tino Crocker) ondansetron (PF) (ZOFRAN) injection 4 mg (COMPLETED) 4 mg, intravenous, NOW X1, 1 dose, On Tue09/20/22 at 2115, STAT 2200 (Given - Provider: Chaparrita Kelley, KENN) sodium chloride 0.9 % BOLUS 1,000 mL (COMPLETED) 1,000 mL, intravenous, NOW X1, 1 dose, On Tue09/20/22 at 2115, STAT 2158 (New Bag - Provider: Chaparrita Kelley, KENN) 0133 (IV Stopped - Provider: Wilman Farah RN) documented in this encounter Orders Admission Count Last Ordered Date First Orde red Date ED OBSERVATION STATUS 1 09/20/2022 documented in this encounter Care Teams Care Management Associate Relationship Specialty Start Date End Date Emigdio Veronica MD [address] [place] [phone] PCP - General Internal Medicine - Primary Care 05/22/20 02/21/24 documented as of this encounter
--- OUTSIDE RECORDS SUMMARY | 2024-11-22 17:00 | XMS_ITS | Encounter Summary ---
Author Organization [facility] Address [address] [place] [address] Care Team Providers Care Insurance Follow Up Rep Name Role Phone Emigdio Veronica MD Primary Care Provider + [facility] Unavailable None, Provider Primary Care Provider Gabriel Wei Primary Care Provider [phone] Mirna Guerrero Primary Care Provider + Reason for Visit * Reason Comments Medications Refill Encounter Details Date Type Department Care Team (Late st Contact Info) Description 11/15/2022 Refill [facility] Adult Primary Care - [place] [address] [place] [address] Emigdio Veronica MD [address] [place] [phone] Medications Refill Social History Tobacco [...] Industry Job Start Date Job End Date 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 ondansetron (ZOFRAN) 4 mg tablet [Pharmacy Med Name: ONDANSETRON HCL 4 MG TABLET] 30 Tablet 1 Sig: TAKE 1 TABLET BY MOUTH EVERY 8 HOURS NEEDED FOR NAUSEA [id number] - [address] Confirmed Pharmacy? Yes Patient out of medication? Unknown Last Refill Date: 10/20/22 Refills left? (explain exceptions requiring early refill) No Recent Visits Date Type Provider Dept 09/29/22 Office Visit Emigdio Veronica MD [facility] 09/17/22 [facility] 08/11/22 Office Visit Emigdio Veronica MD [facility] 07/29/22 Office Visit Scottie Campuzano PA-C [facility] 07/16/22 Office Visit Scottie Campuzano PA-C [facility] 06/25/22 Office Visit Emigdio Veronica MD [facility] 05/20/22 Office Visit Nguyen Nolasco NP [facility] 02/17/22 Office Visit [facility] 01/27/22 Office Visit [facility]sm[facility] 11/25/21 Office Visit Emigdio Veronica MD [facility] Adult [facility] Showing recent visits within past 540 days with a meds authorizing provider and meeting all other requirements Future Appointments Date Type Provider Dept 11/25/22 Appointment Emigdio Veronica MD [facility] Adult Prim Care Showing future appointments within next 150 days with a meds authorizing provider and meeting all other requirements Future appointment: Already Scheduled FATOUMATA FOWLER RN 11/17/2022 8:20 documented in this encounter Plan of Treatment Upcoming Encounters Date Type Department Care Team (Late st Contact Info) Description 01/04/2025 13:00 EST Office Visit [facility] Ophthalmology [address] [phone] Gagandeep Rome MD [address] [place] [address] [address] [place] [phone] 02/11/2025 13:30 EDT Telemedicine [facility] Hematology & Oncology [address] [phone] Dana Padilla MD [address] [place] [address], [facility] [address] [place] [phone] documented as of this encounter Visit Diagnoses Not on filedocumented in this encounter Discontinued Medications Medication Sig Discontinue Reason Start Date End Da te ondansetron (ZOFRAN) 4 mg tablet TAKE 1 TABLET BY MOUTH EVERY 8 HOURS NEEDED FOR NAUSEA 10/20/2022 11/17/2022 documented as of this encounter Additional Health Concerns Infection Onset Date Last Indicated Resolved Time R/O COVID-19 12/14/2022 12/14/2022 12/14/2022 9:10 EST R/O COVID-19 02/23/2023 02/23/2023 02/23/2023 7:15 EDT R/O COVID-19 04/28/2023 04/28/2023 04/29/2023 0:02 EDT R/O COVID-19 09/07/2023 09/07/2023 09/07/2023 22:1 6 EDT documented as of this encounter Care Teams Insurance Follow Up Rep Relationship Specialty Start Date End Date Emigdio Veronica MD [address] [place] [phone] PCP - General Internal Medicine - Primary Care 05/22/20 02/21/24 None, Provider PCP - General 02/24/24 03/18/24 Gabriel Gandara PA PCP - General 03/19/24 09/11/24 Mirna Guerrero PA [address] [place] [address] PCP - General 09/12/24 Izabella Snowden, [employer]ILD [address] [facility], [address] [place] [phone] Crm Consultant 02/21/23 05/03/24 documented as of this encounter
--- OUTSIDE RECORDS SUMMARY | 2024-11-22 17:00 | XMS_ITS | Encounter Summary ---
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 Patient aware that additional labs ordered. Patient has appointment with hematology today and will have labs drawn. The patient indicates understanding of these issues and agrees with the plan. * Telephone Encounter - Emigdio Veronica MD - 09/20/2022 0847 EDT Triage can we reach out to Tara. He hemoglobin A1c returned normal. But to further investigate her reports of numbness in her fingers and toes I have ordered some additional labs. If she is able to return to the lab at some point this week or the next that would be great to get these completed. I will reach out to her again once Ihave these results. documented in this encounter Plan of Treatment Upcoming Encounters Date Type Department Care Team (Late st Contact Info) Description 01/04/2025 13:00 EST Office Visit [facility] Ophthalmology - [address] [phone] Gagandeep Rome MD [address] [place] [address], [facility] [address] [place] [phone] 02/11/2025 13:30 EDT Telemedicine [facility] Hematology & Oncology - [address] [phone] Dana Padilla MD [address] [place] [address], [address] [place] [phone] documented as of this encounter Visit Diagnoses Not on filedocumented in this encounter Care Teams Printing Mechanist Relationship Specialty Start Date End Date Emigdio Veronica MD [address] [place] [phone] PCP - General Internal Medicine - Primary Care 05/22/20 02/21/24 documented as of this encounter
--- OUTSIDE RECORDS SUMMARY | 2024-11-22 17:01 | XMS_ITS | Encounter Summary ---
Author Organization [facility] Address [address] [place] [address] Care Team Providers Care Box Feeder Name Role Phone Emigdio Veronica MD Primary Care Provider + Reason for Visit * Reason Comments Follow-up Encounter Details Date Type Department Care Team (Late st Contact Info) Description 09/20/2022 16:00 EDT Office Visit [facility] Hematology & Oncology - [address] [phone] Dana Padilla MD [address] [facility], Level [address] [place] [address] Thrombocytopenia (HCC-CMS) (Primary Dx); Portal vein thrombosis; BRBPR (bright red blood per rectum) Social History Tobacco Use Types Packs/Day Years [...] Industry 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 No / Unsure 09/20/2022 17:08 EDT documented as of this encounter Last Filed Vital Signs Vital Sign Reading Time Taken Comments Blood Pressure 120/61 09/20/2022 1551 EDT Pulse 91 09/20/2022 155 EDT Temperature 36.4 ??C (97.5 ??F) 09/20/2022 155 EDT Respiratory Rate 16 09/20/2022 155 EDT Oxygen Saturation 96% 09/20/2022 155 EDT Inhaled Oxygen Concentration - - Weight 114.2 kg (251 lb 11.2 oz) 09/20/2022 155 EDT Height 161 cm (5' 3.39) 09/20/2022 155 EDT Body Mass Index 44.05 09/20/2022 155 EDT documented in this encounter Functional Status [...] Progress Notes * Dana Padilla MD - 09/20/2022 1600 EDT Thrombosis & Hemostasis Program (THP) Follow Up Visit Date of Service: 09/20/2022 CC: Follow-up Assessment: History of portal vein thrombosis in this pt with liver disease aand portal hypertension. Anticoagulation was stopped due to GI bleeding. She follows in hepatology with Dr. Moseley. Today she comes with what she describes as large volume of BRBPR 4x this morning. Her abd is diffusely tender. I referred her to the ED for evaluation. There has been no evidence of recurrent portal vein thrombosis or other venous thromboembolism. She also has thrombocytopenia due to hypersplenism and this is stable. Mild leukopenia which fluctuates and no anemia recently. Plan: -Pt was brought to the ED. -no change in plans related to other issues. -return in 9 months. She should have a CBC every 3 months. Please contact my office with questions/concerns. Problem [...] then daily. -01-13-22: EGD NORMAL ([facility]) ??? Portal vein thrombosis PVT witih acquired deficiencies of anticoagulant proteins due to cirrhosis; bleeding on low doses anticoagulation. 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 -04/23/21: Nonocclusive portal vein [...] also neg for deep vein thrombosis. ??? Other cirrhosis of liver (HCC) -NAFLD related cirrhosis with history of decompensation, chronic portal htn, hepatic encephalopathy, small esophageal varices on EGD in 2019, thrombocytopenia/hypersplenism, portal gastropathy -s/p partial splenic embolization (09/28/21) -portal vein thrombosis -Hep C Past provider: Dr. Ijeoma Smith, GI Department in [facility] for long-standing decompensated liver cirrhosis ??? Thrombocytopenia (HCC) Took lusutrombopag 3 mg [...] 70% of the spleen ??? Hypersplenism ??? Moderate protein-calorie malnutrition (HCC-CMS) (HCC) ??? Fluid overload ??? Frequent falls ??? COPD (chronic obstructive pulmonary disease) (HCC-CMS) (HCC) ??? Left ureteral stone ??? HUEY (obstructive sleep apnea) ??? Dyspnea ??? Partial small bowel obstruction (HCC-CMS) (HCC) [...] Dr Amelia Tijerina and notes from [facility] patient misconstrued information to several providers about multiple concurrent opiate prescription. -IR embolization 09/28/21 for thrombocytopenia. Counts raised from 30s to 200K ??? Abdominal wall hernia ??? Allergic rhinitis ??? Pancytopenia (HCC) -bone marrow biopsy at [facility] in 2013: maturing trilineage hematopoiesis with no underlying hematopoietic abnormalities ??? Mild persistent asthma without complication ??? Nephrolithiasis Added automatically from request for surgery [id number] HPI: She had 4 BRBPR this am - the first was largest and then got less. She is lightheaded and nearly passed out. She is having some crampy abd pain. All of this started today. She has had no s/sx of venous thromboembolism. She does have lower abd discomfort that is crampy. Social History: Patient reports that she has quit smoking. Her smoking use included cigarettes. She has a 8.75 pack-year smoking history. She has never used smokeless tobacco. She reports that she does not drink alcohol and does not use drugs. Social History Social History Narrative Rents a room from friends in [place] and lives there with her dog. She is disabled. 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 [...] and reglan [metoclopramide hcl]. Physical Exam: Vitals: 09/20/22 1551 BP: 120/61 Pulse: 91 Resp: 16 Temp: 36.4 ??C (97.5 ??F) TempSrc: Skin SpO2: 96% Weight: (!) 114.2 kg (251 lb 11.2 oz) Height: 161 cm (63.39) Estimated body mass index is 44.05 kg/m?? as calculated from the following: Height as of this encounter: 161 cm (63.39). Weight as of this encounter: 114.2 kg (251 lb 11.2 oz). Wt Readings from Last 3 Encounters: 09/20/22 (!) 114.2 kg (251 lb 11.2 oz) 09/17/22 (!) 112.9 kg (249 lb) 09/07/22 (!) 111.1 kg (245 lb) BMI Readings from Last 3 Encounters: 09/20/22 44.05 kg/m?? 09/17/22 42.74 kg/m?? 09/07/22 42.05 kg/m?? ] Gen: Alert and oriented x3. She is having emotional distress. Pulm: Clear to auscultation, No wheeze, good air movement throughout CV: Regular rate and rhythm, no murmurs, no carotid bruits Abd: Soft, diffusely tender, non-distended, no organomegaly, positive active bowel sounds, No rebound/guarding Ext: Right: No lower extremity edema, hemosiderin deposits, petechiae, varicose veins. Left: No lower extremity edema, hemosiderin deposits, petechiae, varicose veins. Pulses: 2+ and symmetric Labs: Complete Blood Count Lab Results Component Value Date WBC 3.06 (L) 09/16/2022 WBC 3.39 (L) 09/01/2022 WBC 3.07 (L) 07/30/2022 RBC 4.08 09/16/2022 HGB 11.4 (L) 09/16/2022 HGB 11.8 09/01/2022 HGB 11.1 (L) 07/30/2022 HCT 34.9 09/16/2022 MCV 86 09/16/2022 PLT 89 (L) 09/16/2022 PLT 86 (L) 09/01/2022 PLT 80 (L) 07/30/2022 MPV 10.4 09/16/2022 RDWCV 15.7 (H) 09/16/2022 Lab Results Component Value Date DIFFTYPE Auto 07/22/2022 NEUTROABS 3.25 07/22/2022 ABSBAND 0.02 04/23/2019 LYMPHSABS 0.36 (L) 07/22/2022 MONOSABS 0.41 07/22/2022 EOSABS 0.04 07/22/2022 BASOSABS 0.02 08/29/2019 MYELOABS 0.02 10/21/2018 Anemia Workup (if applicable) Lab Results Component Value Date IRON 40 05/08/2022 TIBC 427 05/08/2022 FERRITIN 129 05/08/2022 FOLATE 7.5 02/11/2022 [id number] 386 07/28/2022 Chemistries Lab Results Component Value Date NA 141 09/16/2022 K 4.0 09/16/2022 CL 100 09/16/2022 CO2 31 09/16/2022 BUN 13 09/16/2022 CREATININE 1.14 (H) 09/16/2022 CALCGFR 54 (L) 09/16/2022 CALCIUM 8.7 09/16/2022 CALCCA 9.2 07/28/2021 MG 1.8 06/15/2022 LDH 320 06/28/2019 ALKPHOS 107 09/01/2022 AST 27 09/01/2022 ALT 16 09/01/2022 GGT 47 (H) 11/09/2018 CONJBILI 0.0 04/22/2022 UNCONJBILI 0.7 04/22/2022 BILIRUBIN Neg 09/20/2017 TBIL 0.7 09/01/2022 TP 6.6 09/01/2022 LABALBU 3.6 09/01/2022 AGRATIO 1.2 09/01/2022 LIPASE 58 07/22/2022 Cardiovascular No results found for: SCRP Lab Results Component Value Date CHOL 143 04/16/2022 LDLBASE 72 04/16/2022 CHOLHDL 2.4 04/16/2022 HDL 59 04/16/2022 TRIG 59 04/16/2022 Lab Results Component Value Date TROPONINI <0.034 06/16/2022 Thrombosis Panel Lab Results Component Value Date ABO O 05/07/2022 PROTIME 12.3 05/11/2022 INR 1.1 05/11/2022 INR 1.1 05/10/2022 PTT 32 05/07/2022 DDIMER 1,538 (H) 02/12/2022 DDIMER 1,994 (H) 02/11/2022 [id number] 188 (H) 10/27/2021 ANTITHROM 69 (L) [...] for the following orders CT ABDOMEN PELVIS WO CONTRAST Narrative CT ABDOMEN PELVIS WO CONTRAST 06/09/2022 9:20 PM Signs and Symptoms/Comments: Bowel obstruction high-grade suspected Technique: CT of the abdomen and pelvis was performed without the administration of intravenous contrast. Comparison: CT abdomen pelvis 04/23/2022. Findings: Lower chest: There is a 2 cm solid nodule in the left lung base (axial #38), increased in size since 04/23/2022 (at that time measuring 1 cm) scattered atelectasis or scarring. Hepatobiliary: Redemonstrated cirrhotic configuration of the liver. No contour deforming lesion. Patient is status post cholecystectomy. Common bile duct measures up to 11 mm without significantly changed from prior and likely related to cholecystectomy. Spleen, pancreas, adrenal glands: No contour deforming lesion. Redemonstrated partial infarction ofthe spleen compatible with prior embolization. Ultimately. Partial fatty replacement of the pancreas. No pancreatic ductal dilatation. Kidneys, ureters, bladder: No contour deforming renal lesion. No nephrolithiasis. No hydroureteronephrosis. Urinary bladder is unremarkable. Uterus, ovaries: Status post hysterectomy. No adnexal mass. Bowel: No acute inflammatory changes or evidence of bowel obstruction. No significant diverticular disease. Patient is status post appendectomy. Peritoneal cavity: No free air. Small volume perisplenic free fluid. Lymphovascular: No lymphadenopathy. Normal aorta is normal in caliber. Embolization coil in the splenic artery. Heterogeneous appearance of the enlarged portal vein likely reflects known thrombus as seen on prior contrast- enhanced study. Abdominal wall: No bowel containing hernia. Prior ventral hernia repair to the right of midline. There is edema in the subcutaneous tissues. Calcified nodules in the posterior subcutaneous tissues, unchanged. Musculoskeletal: No concerning osseous lesion. Multilevel degenerative changes in the spine. Memorial Counselor: No additional findings. Impression 1. No acute abnormality abdomen or pelvis, specifically no evidence of bowel obstruction. 2. Interval increase in size of a solid pulmonary nodule, now measuring 2 cm in the left lung base,consider PET CT. 3. Additional unchanged findings noted above including partial infarction of the spleen and enlargement and partial thrombosis of the portal vein. There is now small volume ascites adjacent to the spleen. This study was performed without intravenous contrast due to the international contrast shortage. This may result in decreased sensitivity and/or specificity. I have personally reviewed the images and the above interpretation and agree with the findings. Results have been documented within the past 5 years for the following orders TRANSTHORACIC ECHO (TTE) COMPLETE Interpretation Summary ??? Left??Ventricle: Left ventricular systolic function was hyperdynamic with an ejection fraction =>65%. The estimated left ventricular ejection fraction by biplane Crockett's method was 67 %. ??? Right??Ventricle: Right ventricular systolic function was normal I spent 30 minutes related to this patient's care today, which includes time with the patient, timereviewing medical records and reviewing imaging reports and laboratory results, time updating the chart information, and time composing this note. I spent 10 min on 09/23 completing the note. Dana Padilla MD, MSc communications designer Director, Thrombosis and Hemostasis Program CC: Emigdio Veronica documented in this encounter Plan of Treatment Upcoming Encounters Date Type Department Care Team (Late st Contact Info) Description 01/04/2025 13:00 EST Office Visit [facility] Ophthalmology - [address] [phone] Gagandeep Rmoe MD [address] [place] [address], [facility] 5 [place] [phone] 02/11/2025 13:30 EDT Telemedicine [facility] Hematology & Oncology - [address] [phone] Dana Padilla MD [address] [place] [address], [facility] 2 [place] [phone] documented as of this encounter Visit Diagnoses Diagnosis Thrombocytopenia ([facility])- Primary Thrombocytopenia, unspecified Portal vein thrombosis BRBPR (bright red blood per rectum) Hemorrhage of rectum and anus documented in this encounter Discontinued Medications Medication Sig Discontinue Reason Start Date End Da te furosemide (LASIX) 20 mg tablet Take 3 every morning; if fluid is well controlled then reduce to 2 per day. Alternate therapy 07/29/2022 09/20/2022 documented as of this encounter Care Teams Box Feeder Relationship Specialty Start Date End Date Emigdio Veronica MD [address] [place] [phone] PCP - General Internal Medicine - Primary Care 05/22/20 02/21/24 documented as of this encounter
--- OUTSIDE RECORDS SUMMARY | 2024-11-22 17:01 | XMS_ITS | Encounter Summary ---
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 DO NOT EXCEED 2 APPLICATIONS PER DAY 5 mL 1 09/10/2022 documented in this encounter Miscellaneous Notes * Telephone Encounter - Zaida Adler RN - 09/10/2022 1056 EDT Requested Prescriptions Pending Prescriptions Disp Refills ??? ketotifen (ZADITOR) 0.025 % (0.035 %) ophthalmic solution [Pharmacy Med Name: KETOTIFEN FUM 0.035% EYE DROPS] 5 mL 1 Sig: PLACE 1 DROP INTO BOTH EYES 2 TIMES DAILY NEEDED (EYE IRRITATION). DO NOT EXCEED 2 APPLICATIONS PER DAY [id number] [address] Confirmed Pharmacy? [facility] Request Patient out of medication? Unknown Last Refill Date: 08/19/22 Refills left? (explain exceptions requiring early refill) No Recent Visits Date Type Provider Dept 08/11/22 Office Visit Emigdio Veronica MD [facility] 07/29/22 Office Visit Scottie Campuzano PA-C [facility] 07/16/22 Office Visit Scottie Campuzano PA-C [facility] [facility] 06/25/22 Office Visit Emigdio Veronica MD [facility] 05/20/22 Office Visit Nguyen Nolasco NP [facility] 02/17/22 Office Visit Emigdio Veronica MD [facility] [facility] 02/10/22 Office Visit Darlene Rollins NP [facility] 01/27/22 Office Visit sOmany Matthews MD [facility] [facility] 11/25/21 Office Visit Emgidio Veronica MD [facility] [facility] 11/11/21 Office Visit Scottie Campuzano PA-C [facility] Showing recent visits within past 540 days with a meds authorizing provider and meeting all other requirements Future Appointments Date Type Provider Dept 09/17/22 Appointment Emigdio Veronica MD [facility] Showing future appointments within next 150 days with a meds authorizing provider and meeting all other requirements Future appointment: Already Scheduled ZAIDA ADLER RN 09/10/2022 10:55 documented in this encounter Plan of Treatment Upcoming Encounters Date Type Department Care Team (Late st Contact Info) Description 01/04/2025 13:00 EST Office Visit [facility] Ophthalmology - [address] [phone] Gagandeep Rome MD [address] [place] [address] 5 [place] [phone] 02/11/2025 13:30 EDT Telemedicine [facility] Hematology & Oncology [address] [phone] Dana Padilla MD [address] [place] [address] 2 [place] [phone] documented as of this encounter Visit Diagnoses Not on filedocumented in this encounter Discontinued Medications Medication Sig Discontinue Reason Start Date End Da te ketotifen (ZADITOR) 0.025 % (0.035 %) ophthalmic solution PLACE 1 DROP INTO BOTH EYES 2 TIMES DAILY NEEDED (EYE IRRITATION). DO NOT EXCEED 2 APPLICATIONS PER DAY 08/19/2022 09/10/2022 documented as of this encounter Care Teams Process Engineer Relationship Specialty Start Date End Date Emigdio Veronica MD [address] [place] [phone] PCP - General Internal Medicine - Primary Care 05/22/20 02/21/24 documented as of this encounter
--- OUTSIDE RECORDS SUMMARY | 2024-11-22 17:01 | XMS_ITS | Encounter Summary ---
Author Organization [facility] Address [address] [place] [address] Care Team Providers Care Manager Book Name Role Phone Emigdio Veronica MD Primary Care Provider + Reason for Referral * Radiology Services (Routine/Next Available) - Authorization Not Required Specialty Diagnoses / Procedures Referred By Contac t Referred To Contact Diagnoses Chronic obstructive pulmonary disease, unspecified COPD type (HCC-CMS) Procedures XR CHEST 2 VIEWS Scottie Campuzano PA-C Phone: tel: fax: [facility] Referral ID Status Reason Start Date Expiration Date Visits Requested Visits Authorized [id number] Authorization Not Required 07/29/2022 1 1 Reason for Visit * Radiology Services (Routine/Next Available) - Authorization Not Required Specialty Diagnoses / Procedures Referred By Contac t Referred To Contact Diagnoses Chronic midline thoracic back pain Procedures XR THORACIC SPINE 3 VIEWS XR THORACIC SPINE 2 VIEWS Scottie Campuzano PA-C Phone: tel: fax: [facility] Referral ID Status Reason Start Date Expiration Date Visits Requested Visits Authorized [id number] Authorization Not Required 07/29/2022 1 1 Encounter Details Date Type Department Care Team (Latest Contact Info) Description 07/30/2022 8:10 EDT - 07/30/2022 23:59 EDT Hospital Encounter [facility] [place] [place] [address] Chronic midline thoracic back pain; Chronic obstructive pulmonary disease, unspecified COPD type (HCC-CMS) (HCC) (HCC-CMS) Discharge Disposition: Home or Self Care [...] 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 Yes 07/22/2022 17:10 EDT documented as of this encounter Functional [...] Pain (Knee pain). 50 g 1 2 INCRUSE ELLIPTA 62.5 mcg/actuationIndica tions:Chronic obstructive pulmonary disease, unspecified COPD type ([facility]) INHALE 1 PUFF BY MOUTH DIRECTED DAILY 30 Each 2 naloxone (NARCAN) 4 mg/actuation nasal spray 0.1 mL by nasal route as needed for Opioid Reversal. Repeat every 2-3 minutes if not effective and overdose is suspected. (spray is harmless in excess). 1 Each 1 1 OXYGEN-AIR DELIVERY SYSTEMS MISCIndications:2 L @ night via nC 2 L by misc (non-drug; combo route) route at bedtime. albuterol 90 mcg/actuation inhaler Inhale 1-2 Puffs as directed every 4 hours as needed for Wheezing. 1 Inhaler 1 08/12/20 23 chlorzoxazone (PARAFON FORTE) 500 mg tablet TAKE 1 TABLET BY MOUTH THREE TIMES A DAY NEEDED FOR MUSCLE SPASMS 90 Tablet 1 2 11/09/20 22 furosemide (LASIX) 20 mg tablet Take 3 every morning; if fluid is well controlled then reduce to 2 per day. 270 Tablet 1 2 09/20/20 22 furosemide (LASIX) 20 mg tabletIndications:B ilateral lower extremity edema Take 2 Tablets by mouth 2 times daily. Until seen by PCP. 2 09/29/20 ketotifen (ZADITOR) 0.025 % (0.035 %) ophthalmic solution Place 1 Drop into both eyes 2 times daily as needed (eye irritation). Do not exceed 2 applications per day 5 mL 1 2 08/19/20 22 levothyroxine (SYNTHROID) 25 mcg tablet Take 1 Tablet by mouth daily before breakfast. 90 Tablet 1 2 10/21/20 lidocaine 4 % patch Apply to back once daily as needed for pain. Remove after 12 hours of use. 30 Patch 1 2 05/03/20 23 ondansetron (ZOFRAN) 4 mg tablet Take 1 Tablet by mouth every 8 hours as needed for Nausea. 30 Tablet 1 2 08/16/20 22 ondansetron (ZOFRAN-ODT) 4 mg disintegrating tablet Take 1 Tablet by mouth every 8 hours as needed for Nausea. 10 Tablet 2 08/16/20 22 oxyCODONE (ROXICODONE) 5 mg immediate release tablet Take 1 Tablet by mouth 3 times daily as needed for up to 28 days for Pain. Daily Max: 15 mg 84 Tablet 2 08/02/20 22 oxyCODONE (ROXICODONE) 5 mg immediate release tablet Take 1 Tablet by mouth every 8 hours as needed for Pain. Daily Max: 15 mg 2 Tablet 2 08/19/20 22 pantoprazole (PROTONIX) 40 mg tablet Take 1 Tablet by mouth 2 times daily. 180 Tablet 3 2 05/03/20 23 sertraline (ZOLOFT) 50 mg tablet Take 50 mg by mouth daily. 10/04/20 22 spironolactone (ALDACTONE) 50 mg tablet Take 1 Tablet by mouth daily. 90 Tablet 1 2 08/18/20 22 sucralfate (CARAFATE) 1 gram tablet TAKE 1 TABLET BY MOUTH FOUR TIMES A DAY 120 Tablet 3 2 12/21/19 24 traZODone (DESYREL) 100 mg tablet Take 2 Tablets by mouth at bedtime. 180 Tablet 2 08/26/20 22 documented as of this encounter Discharge Disposition Disposition Code Departure Means Destination Home or Self Care documented in this encounter Plan of Treatment Upcoming Encounters Date Type Department Care Team (Late st Contact Info) Description 01/04/2025 13:00 EST [facility] Visit [facility] Ophthalmology - [address] [phone] Gagandeep Rome MD [address] [place] [address] [address] [place] [phone] 02/11/2025 13:30 EDT Telemedicine [facility] Hematology & Oncology [address] [phone] Dana Padilla MD [address] [place] [address], [facility] [address] [place] [phone] documented as of this encounter Procedures Procedure Name Priority Date/Time Associated Diagnosis Comments XR THORACIC SPINE 3 VIEWS Routine 07/30/2022 10:22 EDT Chronic midline thoracic back pain XR CHEST 2 VIEWS Routine 07/30/2022 10:2 2 EDT Chronic obstructive pulmonary disease, unspecified COPD type (HCC-CMS) (HCC) (HCC-CMS) documented in this encounter Results * XR THORACIC SPINE 3 VIEWS (07/30/2022 10:22 EDT) Anatomical Region Laterality Modality Spine Computed Radiogr aphy 07/30/2022 9:41 EDT Impressions 07/31/2022 10:18 EDT 1. Mild multilevel spondylosis and degenerative disc narrowing. 2. Slight midthoracic dextroscoliosis and mild gradual dorsal kyphosis. THIS DOCUMENT HAS BEEN ELECTRONICALLY SIGNED BY SHERIF DICKINSON MD FOR ANY QUESTIONS OR CONCERNS REGARDING THIS REPORT PLEASE CALL [facility] AT [phone] [facility] 07/31/2022 10:18 EDT PROCEDURE INFORMATION: Exam: XR Thoracic Spine Exam date and time: 07/30/2022 10:48 AM Age: 62 years old Clinical indication: Other chronic pain; Pain in thoracic spine; Additional info: Worsening thoracic back pain TECHNIQUE: Imaging protocol: Radiologic exam of the thoracic spine. Views: 3 views. COMPARISON: CR XR CHEST 2 VIEWS 07/30/2022 9:45 AM FINDINGS: Bones/joints: Slight midthoracic dextroscoliosis and mild gradual dorsal kyphosis. Mild multilevel spondylosis and degenerative disc narrowing. No fracture or osseous lesion. ??Lower cervical degenerative change. Soft tissues: Soft tissues unremarkable. Other findings: Bones appear osteopenic. Procedure Note Sherif Dickinson MD - 07/31/2022 PROCEDURE INFORMATION: Exam: XR Thoracic Spine Exam date and time: 07/30/2022 10:48 AM Age: 62 years old Clinical indication: Other chronic pain; Pain in thoracic spine;Additional info: Worsening thoracic back pain TECHNIQUE: Imaging protocol: Radiologic exam of the thoracic spine. Views: 3 views. COMPARISON: CR XR CHEST 2 VIEWS 07/30/2022 9:45 AM FINDINGS: Bones/joints: Slight midthoracic dextroscoliosis and mild gradual dorsal kyphosis. Mild multilevel spondylosis and degenerative disc narrowing. No fracture or osseous lesion. Lower cervical degenerative change. Soft tissues: Soft tissues unremarkable. Other findings: Bones appear osteopenic. IMPRESSION 1. Mild multilevel spondylosis and degenerative disc narrowing. 2. Slight midthoracic dextroscoliosis and mild gradual dorsal kyphosis. THIS DOCUMENT HAS BEEN ELECTRONICALLY SIGNED BY SHERIF DICKINSON MD FOR ANY QUESTIONS OR CONCERNS REGARDING THIS REPORT PLEASE CALL [facility] [phone] us Scottie THAKKAR DIAGNOSTI C IMAGING ORDERABLES Final Result * XR CHEST 2 VIEWS (07/30/2022 10:22 EDT) Anatomical Region Laterality Modality Computed Radiogr aphy 07/30/2022 12:0 8 EDT Impressions 07/30/2022 12:08 EDT Findings suggestive of interstitial edema superimposed on a background of chronic lung disease. Other differential consideration includes atypical pneumonia. RECOMMENDATION: 1. ??A short-term follow-up is recommended for to 6 weeks. I have personally reviewed the images and the above interpretation and agree with the findings. Narrative 07/30/2022 12:08 EDT XR CHEST 2 VIEWS ??07/30/2022 9:45 AM CLINICAL HISTORY/COMMENTS: COPD exacerbation COMPARISON: Chest x-ray 2 views 06/15/2022; CT chest angiogram 04/23/2022. TECHNIQUE: Lateral and dual-energy frontal views of the chest. FINDINGS: Soft tissues and extrathoracic findings: ??There is a embolization material in the left upper quadrant. Otherwise, no significant soft tissue abnormalities. Bones: Bones are normal for age. Cardiac and mediastinal contours: The cardiomediastinal silhouette is borderline enlarged. Tortuous descending aorta. Lungs: Increased interstitial markings compared to previous radiographs with an reticulonodular appearance, which is new. Unchanged bandlike opacities in the left mid and lower lung likely represents subsegmental atelectasis. Increased anterior-posterior diameter of the chest. No consolidation ?? Pleura/diaphragms: No pleural effusion or pneumothorax. Procedure Note Alverto Miranda MD - 07/30/2022 XR CHEST 2 VIEWS 07/30/2022 9:45 AM CLINICAL HISTORY/COMMENTS: COPD exacerbation COMPARISON: Chest x-ray 2 views 06/15/2022; CT chest angiogram 04/23/2022. TECHNIQUE: Lateral and dual-energy frontal views of the chest. FINDINGS: Soft tissues and extrathoracic findings: There is a embolization materialin the left upper quadrant. Otherwise, no significant soft tissueabnormalities. Bones: Bones are normal for age. Cardiac and mediastinal contours: The cardiomediastinal silhouette isborderline enlarged. Tortuous descending aorta. Lungs: Increased interstitial markings compared to previous radiographswith an reticulonodular appearance, which is new. Unchanged bandlikeopacities in the left mid and lower lung likely represents subsegmentalatelectasis. Increased anterior-posterior diameter of the chest. Noconsolidation Pleura/diaphragms: No pleural effusion or pneumothorax. IMPRESSION Findings suggestive of interstitial edema superimposed on a background ofchronic lung disease. Other differential consideration includes atypicalpneumonia. RECOMMENDATION: 1. A short-term follow-up is recommended for to 6 weeks. I have personally reviewed the images and the above interpretation andagree with the findings. Scottie Campuzano PA-C IMG DIAGNOSTI C IMAGING ORDERABLES Final Result documented in this encounter Visit Diagnoses Diagnosis Chronic midline thoracic back pain Chronic obstructive pulmonary disease, unspecified COPD type ([facility]) documented in this encounter Care Teams Manager Book Relationship Specialty Start Date End Date Emigdio Veronica MD [address] [place] [address] PCP - General Internal Medicine - Primary Care 05/22/20 02/21/24 documented as of this encounter
--- OUTSIDE RECORDS SUMMARY | 2024-11-22 17:01 | XMS_ITS | Encounter Summary ---
Author Organization [facility] Address [address] [place] [address] Care Team Providers Care Nurse Auditor Name Role Phone Emigdio Veronica MD Primary Care Provider + Reason for Visit * Reason Onset Date Comments Labs Only 09/15/2022 Encounter Details Date Type Department Care Team (Late st Contact Info) Description 09/15/[address] 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 Ophthalmology - [address] [phone] Gagandeep Rome MD [address] [place] [address], [facility] [address] [place] [phone] 02/11/2025 13:30 EDT Telemedicine [facility] Hematology & Oncology - [address] [phone] Dana Padilla MD [address] [place] [address], [facility] [address] [place] [phone] documented as of this encounter Visit Diagnoses Not on filedocumented in this encounter Care Teams Nurse Auditor Relationship Specialty Start Date End Date Emigdio Veronica MD [address] [place] [phone] PCP - General Internal Medicine - Primary Care 05/22/20 02/21/24 documented as of this encounter
--- OUTSIDE RECORDS SUMMARY | 2024-11-22 17:01 | XMS_ITS | Encounter Summary ---
Author Organization [facility] Address [address] [place] [address] Care Team Providers Care Checkout Supervisor Name Role Phone Emigdio Veronica MD Primary Care Provider + Encounter Details Date Type Department Care Team (Late st Contact Info) Description 09/16/2022 12:00 EDT Phlebotomy Only [facility] Laboratory Services - [address] [address] [employer] [facility] Portal vein thrombosis; Upper GI bleed; MUSA (acute kidney injury) ([facility]); NAFLD (nonalcoholic fatty liver disease); Hyperglycemia Social History Tobacco Use Types Packs/Day Years [...] 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 Not on [...] Info) Description 01/04/2025 13:00 EST Office Visit [facility] Ophthalmology - [address] [phone] Gagandeep Rome MD [address] [facility], Level [address] [place] [address] 02/11/2025 13:30 EDT Telemedicine [facility] Hematology & Oncology - [address] [address] Dana Padilla MD [address] [place] [address], [facility] [place] [facility] [address] [place] [address] documented as of this encounter Procedures Procedure Name Priority Date/Time Associated Diagnosis Comments COMPLETE BLOOD COUNT Routine 09/16/2022 12:32 EDT Portal vein thrombosis Upper GI bleed HEMOGLOBIN A1C Add-On 09/16/2022 12:32 EDT Hyperglycemia AMMONIA Routine 09/16/2022 12:32 EDT NAFLD (nonalcoholic fatty liver disease) BASIC METABOLIC PANEL (BMP) Routine 09/16/2022 12:32 EDT MUSA (acute kidney injury) ([facility]) documented in this encounter Results * HEMOGLOBIN A1C (09/16/2022 12:32 EDT) Hemoglobin A1c 5.6 <5.7 % 09/17/2022 17:47 EDT [facility] Comment: Glycemic Status References: Normal: ??<5.7% Pre-Diabetes: ??5.7% - 6.4% Diagnostic of Diabetes: ??> or = 6.5% (if confirmed) Est Avg Glucose 114 mg/dL 17:47 EDT [facility] Comment:The eAG represents t he A1c result expressed as average glucose in mg/dL. Blood VENOUS BLOOD / Unknown Venipuncture / Unknown 09/16/2022 12:32 EDT 09/16/2022 12:32 EDT Emigdio Veronica MD CHEMISTRY & BLOOD GAS OR DERABLES Final Result Performing Organization Address [facility]/ZIP Co de Phone Number [facility] [address] [place] [address] * (ABNORMAL) AMMONIA (09/16/2022 12:32 EDT) Ammonia 59(H) <34 umol/L 09/16/2022 13:21 EDT [facility] Blood VENOUS BLOOD / Unknown Venipuncture / Unknown 09/16/2022 12:32 EDT 09/16/2022 12:32 EDT Emigdio Veronica MD CHEMISTRY & BLOOD GAS OR DERABLES Final Result Performing Organization Address [facility] Co de Phone Number [facility] [address] [place] [address] * (ABNORMAL) BASIC METABOLIC PANEL (BMP) (09/16/2022 12:32 EDT) Sodium 141 136 - 145 mmol/L 09/16/2022 13:19 [facility] Potassium 4.0 3.5 - 5.0 mmol/L 09/16/2022 13:19 [facility] Chloride 100 96 - 110 mmol/L 09/16/2022 13:19 [facility] CO2 Total 31 22 - 32 mmol/L 09/16/2022 13:19 [facility] Anion Gap 10 5 - 14 09/16/2022 13:19 [facility] Glucose 118(H) 70 - 100 mg/dL 09/16/2022 13:19 [facility] Calcium 8.7 8.5 - 10.5 mg/dL 09/16/2022 13:19 [facility] BUN 13 10 - 26 mg/dL 09/16/2022 13:19 [facility] Creatinine 1.14(H) 0.52 - 1.04 mg/dL 09/16/2022 13:19 [facility] eGFR 54(L) >60 mL/min/1.73 m2 09/16/2022 13:19 [facility] Blood VENOUS BLOOD / Unknown Venipuncture / Unknown 09/16/2022 12:32 EDT 09/16/2022 12:32 EDT us Emigdio Veronica MD CHEMISTRY & BLOOD GAS OR DERABLES Final Result [facility] [address] [place] [address] * (ABNORMAL) COMPLETE BLOOD COUNT (09/16/2022 12:32 EDT) WBC 3.06(L) 4.00 - 12.40 K/cmm 09/16/2022 13:34 [facility] RBC 4.08 3.86 - 5.04 M/cmm 09/16/2022 13:34 [facility] Hemoglobin 11.4(L) 11.6 - 15.2 gm/dL 09/16/2022 13:34 [facility] HCT 34.9 34.9 - 44.4 % 09/16/2022 13:34 [facility] MCV 86 81 - 98 fl 09/16/2022 13:34 [facility] MCH 27.9 26.7 - 33.3 pg 09/16/2022 13:34 [facility] MCHC 32.7 32.1 - 35.9 gm/dL 09/16/2022 13:34 [facility] RDW-CV 15.7(H) <14.7 % 09/16/2022 13:34 [facility] RDW-SD 49.2 <50.4 fl 09/16/2022 13:34 EDT [facility] PLT 89(L) 141 - 377 K/cmm 09/16/2022 13:34 EDT [facility] MPV 10.4 9.5 - 12.7 fl 09/16/2022 13:34 EDT [facility] Blood VENOUS BLOOD / Unknown Venipuncture / Unknown 09/16/2022 12:32 EDT 09/16/2022 12:32 EDT us Dana Padilla MD HEMATOLOGY & PF4 ORDERABLES Pricila l Result [facility] [address] [place] [address] documented in this encounter Visit Diagnoses Diagnosis Portal vein thrombosis Upper GI bleed Hemorrhage of gastrointestinal tract, unspecified MUSA (acute kidney injury) ([facility]) Acute kidney failure, unspecified NAFLD (nonalcoholic fatty liver disease) Other chronic nonalcoholic liver disease Hyperglycemia Other abnormal glucose documented in this encounter Care Teams Checkout Supervisor Relationship Specialty Start Date End Date Emigdio Veronica MD [address] [place] [address] PCP - General Internal Medicine - Primary Care 05/22/20 02/21/24 documented as of this encounter
--- OUTSIDE RECORDS SUMMARY | 2024-11-22 17:01 | XMS_ITS | Encounter Summary ---
Author Organization [facility] Address [address] [place] [address] Care Team Providers Care Mirror Machine Feeder Name Role Phone Emigdio Veronica MD Primary Care Provider + Izabella Snowden [facility] Unavailable None, Provider Primary Care Provider Gabriel Wei Primary Care Provider Mirna Guerrero Primary Care Provider + Reason for Visit * Reason Onset Date Comments Other Medications Refill 08/03/2022 Encounter Details Date Type Department Care Team (Late st Contact Info) Description 07/29/2022 Refill [facility] Adult Primary Care - [place] [address] [place] [address] Cameron Marshall MD [address] [place] [address] Other; Medications Refill Social History Tobacco Use Types [...] 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 180 Tablet 07/29/2022 documented in this encounter Miscellaneous Notes * Telephone Encounter - Fatoumata Fowler RN - 07/29/2022 1030 EDT Requested Prescriptions Pending Prescriptions Disp Refills ??? traZODone (DESYREL) 100 mg tablet [Pharmacy Med Name: TRAZODONE 100 MG TABLET] 180 Tablet 0 Sig: TAKE 2 TABLETS BY MOUTH AT BEDTIME [facility]/pharmacy #[id number] - [place], [place] - [address] [place] [address] Confirmed Pharmacy? Yes Patient out of medication? Unknown Last Refill Date: 05/04/22 Refills left? (explain exceptions requiring early refill) No Recent Visits Date Type Provider Dept 07/16/22 Office Visit Scottie Campuzano PA-C [place] [facility] 06/25/22 Office Visit Emigdio Veronica MD [place] [facility] 05/20/22 Office Visit Nguyen Nolasco NP [place] [facility] 02/17/22 Office Visit Emigdio Veronica MD [place] [facility] 02/10/22 Office Visit Darlene Rollins NP [facility] 01/27/22 Office Visit Osmany Matthews MD [facility] 11/25/21 Office Visit Emigdio Veronica MD [place] [facility] 11/11/21 Office Visit Scottie Campuzano PA-C [facility] 10/20/21 Office Visit Emigdio Veronica MD [facility] 10/08/21 Office Visit Emigdio Veronica MD [facility] Showing recent visits within past 540 days with a meds authorizing provider and meeting all other requirements Today's Visits Date Type Provider Dept 07/29/22 Appointment Scottie Campuznao PA-C [facility] Showing today's visits with a meds authorizing provider and meeting all other requirements Future Appointments Date Type Provider Dept 08/11/22 Appointment Emigdio Veronica MD [facility] Showing future appointments within next 150 days with a meds authorizing provider and meeting all other requirements Future appointment: Already Scheduled FATOUMATA FOWLER RN 07/29/2022 10:30 documented in this encounter Plan of Treatment Upcoming Encounters Date Type Department Care Team (Late st Contact Info) Description 01/04/2025 13:00 EST Office Visit [facility] Ophthalmology - [address] [address] Gagandeep Rome MD [address] [place] [address] 5 [place] [phone] 02/11/2025 13:30 EDT Telemedicine [facility] Hematology & Oncology [address] [phone] Dana Padilla MD [address] [place] [address] 2 [place] [phone] documented as of this encounter Visit Diagnoses Not on filedocumented in this encounter Discontinued Medications Medication Sig Discontinue Reason Start Date End Da te traZODone (DESYREL) 100 mg tablet Take 2 Tablets by mouth at bedtime. 05/04/2022 07/29/2022 documented as of this encounter Additional Health Concerns Infection Onset Date Last Indicated Resolved Time R/O COVID-19 12/14/2022 12/14/2022 12/14/2022 9:10 EST R/O COVID-19 02/23/2023 02/23/2023 02/23/2023 7:15 EDT R/O COVID-19 04/28/2023 04/28/2023 04/29/2023 0:02 EDT R/O COVID-19 09/07/2023 09/07/2023 09/07/2023 22:1 6 EDT documented as of this encounter Care Teams Mirror Machine Feeder Relationship Specialty Start Date End Date Emigdio Veronica MD [address] [place] [phone] PCP - General Internal Medicine - Primary Care 05/22/20 02/21/24 None, Provider PCP - General 02/24/24 03/18/24 Gabriel Gandara PA PCP - General 03/19/24 09/11/24 Mirna Guerrero PA [address] [place] [address] PCP - General 09/12/24 Izabella Snowden LICSW [facility] [address] [place] [phone] Bulk Plant Operator 02/21/23 05/03/24 documented as of this encounter
--- OUTSIDE RECORDS SUMMARY | 2024-11-22 17:01 | XMS_ITS | Encounter Summary ---
Author Organization 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 45 capsule 09/08/2022 2 documented in this encounter Miscellaneous Notes * Telephone Encounter - Karol Foy PA-C - 09/08/2022 1316 EDT 08/31 Note from PCP increasing gabapentin dosing to 300mg tid and no further increases until she has f/u with PCP. Next f/u 09/17 with PCP rx for #45 tabs gabapentin 300mg prescribed * Telephone Encounter - Ebony Toscano - 09/08/2022 0925 EDT Pt calling today, 09.08.22. She says she is now taking Gabapentin, 300 mg, 1 TID instead of BID. She says that is a change as of last week. Pt is leaving tomorrow, 09.09.22 to go to her daughter's for a few days, needs before she goes. * Telephone Encounter - Noemi Hall - 09/07/2022 1002 EDT Requested Prescriptions Pending Prescriptions Disp Refills ??? gabapentin (NEURONTIN) 300 mg capsule 120 capsule 1 Sig: Take 1 capsule by mouth 2 times daily at 9am and 9pm. patient states that Dr Veronica change dose age to three times a day and she is running out and willneed new script at new dose [id number] - [place], [place] - [id number] Confirmed Pharmacy? Yes Patient out of medication? Yes: Needs Refill Now Last Refill Date: 08.26.22 Refills left? (explain exceptions requiring early refill) Yes, but now at new dose Recent Visits Date Type Provider Dept 08/11/22 Office Visit Emigdio Veronica MD [place] [facility] 07/29/22 Office Visit Scottie Campuzano PA-C [place] [facility] 07/16/22 Office Visit Scottie Campuzano PA-C [place] [facility] 06/25/22 Office Visit Emigdio Veronica MD [place] [facility] 05/20/22 Office Visit Nguyen Nolasco NP [place] [facility] 02/17/22 Office Visit Emigdio Veronica MD [place] [facility] 02/10/22 Office Visit Darlene Rollins NP [place] [facility] 01/27/22 Office Visit Osmany Matthews MD [place] [facility] 11/25/21 Office Visit Emigdio Veronica MD [place] [facility] 11/11/21 Office Visit Scottie Campuzano PA-C [place] [facility] Showing recent visits within past 540 days with a meds authorizing provider and meeting all other requirements Future Appointments Date Type Provider Dept 09/17/22 Appointment Emigdio Veronica MD [place] [facility] Showing future appointments within next 150 days with a meds authorizing provider and meeting all other requirements Future appointment: Already Scheduled Noemi Hall 09/07/2022 10:02 documented in this encounter Plan of Treatment Upcoming Encounters Date Type Department Care Team (Late st Contact Info) Description 01/04/2025 13:00 EST Office Visit [facility] Ophthalmology [address] [phone] Gagandeep Rome MD [address] [place] [address], [address] [place] [phone] 02/11/2025 13:30 EDT Telemedicine [facility] Hematology & Oncology [address] [phone] Dana Padilla MD [address] [place] [address], [address] [place] [address] documented as of this encounter Visit Diagnoses Not on filedocumented in this encounter Discontinued Medications Medication Sig Discontinue Reason Start Date End Da te gabapentin (NEURONTIN) 300 mg capsule Take 1 capsule by mouth 2 times daily. Reorder 08/26/2022 09/07/2022 documented as of this encounter Care Teams Factory Assembler Relationship Specialty Start Date End Date Emigdio Veronica MD [address] [place] [address] PCP - General Internal Medicine - Primary Care 05/22/20 02/21/24 documented as of this encounter
--- OUTSIDE RECORDS SUMMARY | 2024-11-22 17:01 | XMS_ITS | Encounter Summary ---
Author Organization 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 Please call back with results documented in this encounter Plan of Treatment Upcoming Encounters Date Type Department Care Team (Late st Contact Info) Description 01/04/2025 13:00 EST Office Visit [facility] Ophthalmology - [address] [phone] Gagandeep Rome MD [address] [place] [address] 5 [place] [phone] 02/11/2025 13:30 EDT Telemedicine [facility] Hematology & Oncology - [address] [phone] Dana Padilla MD [address] [place] [address], [facility] [address] [place] [phone] documented as of this encounter Visit Diagnoses Not on filedocumented in this encounter Care Teams Heel Scourer Relationship Specialty Start Date End Date Emigdio Veronica MD [address] [place] [phone] PCP - General Internal Medicine - Primary Care 05/22/20 02/21/24 documented as of this encounter
--- OUTSIDE RECORDS SUMMARY | 2024-11-22 17:01 | XMS_ITS | Encounter Summary ---
Author Organization [facility] Address [address] [place] [address] Care Team Providers Care Business Systems Technician Name Role Phone Emigdio Veronica MD Primary Care Provider + Reason for Visit * Reason Onset Date Comments Medication Management 08/25/2022 Fall 08/25/2022 Back Pain 08/25/2022 Encounter Details Date Type Department Care Team (Late st Contact Info) Description 08/25/2022 Telephone [facility] Adult Primary Care - [place] [address] [place] [address] Emigdio Veronica MD [address] [place] [address] Medication Management; Fall; Back Pain Social History Tobacco Use Types Packs/Day Years [...] 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 120 capsule 1 08/26/2022 2 documented in this encounter Miscellaneous Notes * Telephone Encounter - Sharon Joseph RN - 09/01/2022 0821 EDT The patient indicates understanding of these issues and agrees with the plan. * Telephone Encounter - Emigdio Veronica MD - 08/31/2022 1649 EDT We can increase the gabapentin to 300 mg TID as a next step. I would hold off on further increases until we are able to follow-up again this month. * Telephone Encounter - Ebony Toscano - 08/31/2022 1639 EDT Pt calling back, she says she has been taking the Gabapentin, 300 mg, one BID, since last week, shesays it is not helping her back pain at all. She ?if she can get another increase? * Telephone Encounter - Sharon Joseph RN - 08/26/2022 1514 EDT The patient indicates understanding of these issues and agrees with the plan. * Telephone Encounter - Emigdio Veronica MD - 08/26/2022 1451 EDT We'll proceed to an increase of 300 mg BID for her gabapentin. I will order now. * Telephone Encounter - Sharon Joseph RN - 08/26/2022 1310 EDT Pt calls back this afternoon and states that she has already been taking 200 mg twice a day. Just wanting to clarify how you would like to proceed. Pt states she only has a couple pills left and will need a refill as well * Telephone Encounter - Sharon Joseph RN - 08/26/2022 0851 EDT The patient indicates understanding of these issues and agrees with the plan. * Telephone Encounter - Emigdio Veronica MD - 08/25/2022 1401 EDT Her gabapentin dose is still quite low, we could dose increase it to 200 mg nightly or even 300 mg if tara is willing to give it a try. She should continue her other pain interventions as prescribed. If her pain is intolerable then evaluation in the ED or UC is the immediate and appropriate step * Telephone Encounter - Hesham Mercer DNP - 08/25/2022 1347 EDT Spoke with Tara. Woke up last night and while walking in the kitchen, fell when walking. States her legs ache because of ongoing swelling. Did not lose consciousness and did not hit her head. Reports she has lower back pain that radiates down both legs, though more on the left side. Reports some numbness of her feet but this is not new. Pain is 8-9/10 right now. Is worried about trying to sleep at night because of the pain. No shortness of breath, CP, dizziness. Taking: Oxycodone 5 TID which takes the edge off, lidocaine patches and gabapentin 100mg at bedtime. Doesnot think the gabapentin is helping. No OV available today or tomorrow. HESHAM MERCER RN 08/25/2022 13:58 * Telephone Encounter - Noemi Hall - 08/25/2022 1011 EDT Reason for Call: Medication Management, Fall, and Back Pain Summary/Symptoms: patient states that she fell again last night and hip and legs are worse pain now. States that current medication for pain is nt helping it. patient is inquiring if pain med can be increased while she is recovering from this fall Onset and Duration: about 2:30 last night Does the patient have a computer, laptop or smart phone with high speed & video capability? N/A If so, would they be interested in doing a video visit via Zoom? N/A Appointment Offered? No Noemi Hall 08/25/2022 10:12 documented in this encounter Plan of Treatment Upcoming Encounters Date Type Department Care Team (Late st Contact Info) Description 01/04/2025 13:00 EST Office Visit [facility] Ophthalmology - [address] [phone] Gagandeep Rome MD [address] [place] [address], [facility] [address] [place] [phone] 02/11/2025 13:30 EDT Telemedicine [facility] Hematology & Oncology - [address] [phone] Dana Padilla MD [address] [place] [address], [facility] [address] [place] [address] documented as of this encounter Visit Diagnoses Not on filedocumented in this encounter Discontinued Medications Medication Sig Discontinue Reason Start Date End Da te gabapentin (NEURONTIN) 100 mg capsule Take 1 capsule by mouth at bedtime. Reorder 08/11/2022 08/26/2022 documented as of this encounter Care Teams Business Systems Technician Relationship Specialty Start Date End Date Emigdio Veronica MD [address] [place] [phone] PCP - General Internal Medicine - Primary Care 05/22/20 02/21/24 documented as of this encounter
--- OUTSIDE RECORDS SUMMARY | 2024-11-22 17:01 | XMS_ITS | Encounter Summary ---
Author Organization [facility] Address [address] [place] [address] Care Team Providers Care Press Operator Carbon Blocks Name Role Phone Emigdio Veronica MD Primary Care Provider + Reason for Visit * Reason Onset Date Comments Fall 08/09/2022 Leg Pain 08/09/2022 Back Pain 08/09/2022 Headache 08/09/2022 Encounter Details Date Type Department Care Team (Late st Contact Info) Description 08/09/2022 Telephone [facility] Adult Primary Care - [place] [address] [place] [address] Emigdio Veronica MD [address] [place] [address] Fall; Leg Pain; Back Pain; Headache Social History Tobacco Use Types Packs/Day Years [...] 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 * Telephone Encounter - Jes Mayorga RN - 08/09/2022 1047 EDT Patient took 4 falls over the weekend. Doesn't sleep well. Sometimes when gets up she is not fully away. Falls mostly at night.sometimes when gets up to the bathroom. Patient thinks not fully awake when falls. Fell in the bathroom and hit tub. Lower back hurts. Feet hurt quite a bit. Landed on right hip for one of the falls. Pain is worse with walking. Patient is able to get around. Not short of breath or dizzy when falls. Just got a walker and will start using that at night. Hit head over the weekend. Did have headache afterwards but this is better now. Patient agreed to use walker whenever walking around the house.patient has not seen physical therapy for frequent falls. If has sudden worsening of symptoms patient will be seen urgently in ER. Patient will follow up with DR Veronica on Tuesday as plan. The patient indicates understanding of these issues and agrees with the plan. * Telephone Encounter - Noemi Hall - 08/09/2022 0941 EDT Reason for Call: Fall, Leg Pain, and Back Pain Summary/Symptoms: patient states she fell several times over the weekend. patient states that at least one of the times did hit her head. Did have a headache for a while but that is now gone this morning but is legs and back are in pain Sending urgent as patient did say she hit her head at least once Onset and Duration: over the weekend Does the patient have a computer, laptop or smart phone with high speed & video capability? N/A If so, would they be interested in doing a video visit via Zoom? N/A Appointment Offered? No Noemi Hall 08/09/2022 9:42 documented in this encounter Plan of Treatment Upcoming Encounters Date Type Department Care Team (Late st Contact Info) Description 01/04/2025 13:00 EST Office Visit [facility] Ophthalmology - [address] [phone] Gagandeep Rome MD [address] [place] [address] [address] [place] [phone] 02/11/2025 13:30 EDT Telemedicine [facility] Hematology & Oncology [address] [phone] Dana Padilla MD [address] [place] [address], [facility] [address] [place] [phone] documented as of this encounter Visit Diagnoses Not on filedocumented in this encounter Care Teams Press Operator Carbon Blocks Relationship Specialty Start Date End Date Emigdio Veronica MD [address] [place] [phone] PCP - General Internal Medicine - Primary Care 05/22/20 02/21/24 documented as of this encounter
--- OUTSIDE RECORDS SUMMARY | 2024-11-22 17:01 | XMS_ITS | Encounter Summary ---
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 Daily Max: 15 mg 84 Tablet 08/04/2022 08/18/2022 documented in this encounter Miscellaneous Notes * Telephone Encounter - Heike Mcleod RN - 08/03/2022 0929 EDT Call from pt Advised medication sent to pharmacy for oxycodone is TID and that Dr Fernandez wanted to wait to see her to discuss increase She will P/u refill tomorrow The patient indicates understanding of these issues and agrees with the plan. * Telephone Encounter - Heike Mcleod RN - 08/03/2022 0854 EDT Call to Patient Relayed message per dr fernandez Patient expressed understanding with no barriers No additional questions or concerns to be addressed at this time. * Telephone Encounter - Emigdio Fernandez MD - 08/02/2022 1659 EDT Her most recent BMP was reassuring in temrs of her kidney function. If her weights climb an furtherI would increase her lasix to 60 mg (an extra 20 mg) and continue this dosage until her weight returns to it's dry weight. She can then return to 40 mg daily dosing. * Telephone Encounter - Emigdio Fernandez MD - 08/02/2022 1240 EDT I am not comfortable increasing her pain regiment without further discussion in the form of an OV. She is already on TID dosing of short acting oxycodone and has a history of both renal and liver dysfunction making opiate use particularly risk heavy for pain control. We will have to follow-up on this matter at our next visit on 08/11. However as we discussed in 2020 one intervention we have yet to fully pursue [facility] non[facility]acologic interventions for pain control. She was referred there in the summer of 2020, but ultimately did not complete her intake paperwork that was a perquisite to scheduling. I am happy to re-place this referral now if she is willing to establish with this service. Her oxycodone refill is not due until 08/04. I have refilled it for this date. * Telephone Encounter - Sharon Joseph RN - 08/02/2022 1125 EDT The patient indicates understanding of these issues and agrees with the plan. Pt states that she is starting to have increased swelling in her feet. Pt states that her legs are painful from the swelling Pt had gained 6 pounds in the last 2 days. Increased SOB not nearly how she was in the hospital Pt states that she is taking lasix 40mg daily and spirolactone 100 mg daily. Pt has an appt on 08/11 Pt would like a refill and is asking about a increase in her pain medication * Telephone Encounter - Scottie Campuzano PA-C - 07/31/2022 1151 EDT To KENN white: Please call Gena. (I saw her the other day for follow-up on a COPD exacerbation. She complained of substantial worsening of her back pain over the past months, primarily in her thoracic spine) 1. tell her that her x-rays show some mild arthritis in her mid back. This is normal for most people in their 60s. There is nothing worrisome in her spine, such as a tumor or fracture. 2. Her chest x-ray shows some very slight fluid in her lungs. It is not severe or worrisome. Nevertheless, it is recommended that she get a repeat x-ray in 6 or 8 weeks----to see if the small amount of fluid goes away by itself.. I placed orders for that x-ray today to be done in September. Please ask her to mi her calendar or create a reminder to get the repeat chest x-ray in September. Thanks, Scottie CC: Dr. Fernandez documented in this encounter Plan of Treatment Upcoming Encounters Date Type Department Care Team (Late st Contact Info) Description 01/04/2025 13:00 EST Office Visit [facility] Ophthalmology - [address] [phone] Gagandeep Rome MD [address] [place] [address], [facility] [address] [place] [phone] 02/11/2025 13:[address] [facility] Hematology & Oncology - [address] [address] Dana Padilla MD [address] [place] [address], [facility] 2 [place] [phone] documented as of this encounter Visit Diagnoses Diagnosis Acute pulmonary edema (HCC-CMS)- Primary Acute edema of lung, unspecified COPD exacerbation (HCC-CMS) Obstructive chronic bronchitis with exacerbation documented in this encounter Discontinued Medications Medication Sig Discontinue Reason Start Date End Da te oxyCODONE (ROXICODONE) 5 mg immediate release tablet Take 1 Tablet by mouth 3 times daily as needed for up to 28 days for Pain. Daily Max: 15 mg Reorder 07/07/2022 08/02/2022 documented as of this encounter Care Teams Environmental Engineering Manager Relationship Specialty Start Date End Date Emigdio Fernandez MD [address] [place] [phone] PCP - General Internal Medicine - Primary Care 05/22/20 02/21/24 documented as of this encounter
--- OUTSIDE RECORDS SUMMARY | 2024-11-22 17:01 | XMS_ITS | Encounter Summary ---
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 Pt w/ moderate HUEY, plan for titration study scheduled 11/26/22 to establish effective CPAP pressure. Advised to use a wedge or folded pillow to encourage side-sleeping in the meantime. Encouraged CB to Sleep Clinic or send eSofthart message with any questions or concerns. Pt denies any questions at this time, verbalized understanding of plan with no barriers to learningidentified. * Telephone Encounter - Arely Hernandez - 09/15/2022 1315 EDT Tara is calling with questions about next sleep study. She notes that she has not been feeling well and may have misunderstood, but she thought that therewas an appointment this Tuesday. Advised that she is scheduled for Titration study on November 26 and has been added to the waitlistin case of a sooner date. Routed to Sleep Nurse to try to reach out again by phone to discuss. * Telephone Encounter - Kathleen Broussard RN - 09/10/2022 1307 EDT ATR pt by phone, no answer, VM box full. eSofthart message sent to inform as per below. ----- Message from Vivian Black MD sent at 09/08/2022 14:42 EDT ----- Please inform the patient that s/he was found to have moderate obstructive sleep apnea . I have ordered titration study for her/him, Thank you documented in this encounter Plan of Treatment Upcoming Encounters Date Type Department Care Team (Late st Contact Info) Description 01/04/2025 13:00 EST Office Visit [facility] Ophthalmology - [address] [phone] Gagandeep Rome MD [address] [place] [address], [facility] [address] [place] [phone] 02/11/2025 13:30 EDT Telemedicine [facility] Hematology & Oncology - [address] [phone] Dana Padilla MD [address] [place] [address], [facility] [address] [place] [phone] documented as of this encounter Visit Diagnoses Not on filedocumented in this encounter Care Teams Fire Sprinkler Apparatus Inspector Relationship Specialty Start Date End Date Emigdio Veronica MD [address] [place] [phone] PCP - General Internal Medicine - Primary Care 05/22/20 02/21/24 documented as of this encounter
--- OUTSIDE RECORDS SUMMARY | 2024-11-22 17:01 | XMS_ITS | Encounter Summary ---
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 Not on [...] EST Office Visit [facility] Ophthalmology - [address] [phone] Gagandeep Rome MD 111 [facility], Level [address] [place] [phone] 02/11/2025 13:30 EDT Telemedicine [facility] [[email or web address] - [address] [phone] Dana Padilla MD 111 [facility] 2 [place] [address] documented as of this encounter Procedures Procedure Name Priority Date/Time Associated Diagnosis Comments AMMONIA Routine 09/01/2022 9:41 EDT Confusion COMPREHENSIVE METABOLIC PANEL (CMP) Routine 09/01/2022 9:41 EDT Chronic kidney disease, unspecified CKD stage COMPLETE BLOOD COUNT Routine 09/01/2022 9:40 EDT Portal vein thrombosis Upper GI bleed documented in this encounter Results * (ABNORMAL) AMMONIA (09/01/2022 9:41 EDT) Ammonia 65(H) <34 umol/L 09/01/2022 11:08 EDT [facility] Blood VENOUS BLOOD / Unknown Venipuncture / Unknown 09/01/2022 9:41 EDT 09/01/2022 9:43 EDT us Emigdio Veronica MD CHEMISTRY & BLOOD GAS OR DERABLES Final Result [facility] [address] [place] [address] * (ABNORMAL) COMPREHENSIVE METABOLIC PANEL (CMP) (09/01/2022 9:41 EDT) Sodium 141 136 - 145 mmol/L 09/01/2022 11:04 [facility] Potassium 4.1 3.5 - 5.0 mmol/L 09/01/2022 11:04 [facility] Chloride 99 96 - 110 mmol/L 09/01/2022 11:04 [facility] CO2 Total 29 22 - 32 mmol/L 09/01/2022 11:04 [facility] Glucose 184(H) 70 - 100 mg/dL 09/01/2022 11:04 [facility] BUN 17 10 - 26 mg/dL 09/01/2022 11:04 [facility] Creatinine 1.32(H) 0.52 - 1.04 mg/dL 09/01/2022 11:04 [facility] eGFR 46(L) >60 mL/min/1.7 3m2 09/01/2022 11:04 [facility] Total Protein 6.6 6.3 - 8.2 g/dL 09/01/2022 11:04 [facility] Albumin 3.6 3.4 - 4.9 g/dL 09/01/2022 11:04 [facility] Alkaline Phosphatase 107 38 - 126 U/L 09/01/2022 11:04 [facility] AST 27 15 - 46 U/L 09/01/2022 11:04 [facility] ALT 16 <35 U/L 09/01/2022 11:04 [facility] Bilirubin, Total 0.7 <1.4 mg/dL 09/01/20 11:04 [facility] Calcium 8.8 8.5 - 10.5 mg/dL 09/01/2022 11:04 [facility] Albumin/Globulin Ratio 1.2 1.0 - 2.5 09/01/2022 11:04 [facility] Anion Gap 13 5 - 14 09/01/2022 11:04 [facility] Blood VENOUS BLOOD / Unknown Venipuncture / Unknown 09/01/2022 9:41 EDT 09/01/2022 9:43 EDT us Emigdio Veronica MD CHEMISTRY & BLOOD GAS OR DERABLES Final Result [facility] [address] [place] [address] * (ABNORMAL) COMPLETE BLOOD COUNT (09/01/2022 9:40 EDT) WBC 3.39(L) 4.00 - 12.40 K/cmm 09/01/2022 11:44 EDT [facility] RBC 4.15 3.86 - 5.04 M/cmm 09/01/2022 11:44 [facility] Hemoglobin 11.8 11.6 - 15.2 gm/dL 09/01/2022 11:44 [facility] HCT 35.7 34.9 - 44.4 % 09/01/2022 11:44 [facility] MCV 86 81 - 98 fl 09/01/2022 11:44 [facility] MCH 28.4 26.7 - 33.3 pg 09/01/2022 11:44 [facility] MCHC 33.1 32.1 - 35.9 gm/dL 09/01/2022 11:44 [facility] RDW-CV 15.7(H) <14.7 % 09/01/2022 11:44 [facility] RDW-SD 49.2 <50.4 fl 09/01/2022 11:44 [facility] PLT 86(L) 141 - 377 K/cmm 09/01/2022 11:44 [facility] MPV 10.4 9.5 - 12.7 fl 09/01/2022 11:44 [facility] Blood VENOUS BLOOD / Unknown Venipuncture / Unknown 09/01/2022 9:40 EDT 09/01/2022 9:43 EDT us Dana Padilla MD HEMATOLOGY & PF4 ORDERABLES Pricila l Result [facility] [address] [place] [address] documented in this encounter Visit Diagnoses Diagnosis Portal vein thrombosis Upper GI bleed Hemorrhage of gastrointestinal tract, unspecified Chronic kidney disease, unspecified CKD stage Confusion Unspecified psychosis documented in this encounter Care Teams Physicians And Surgeons Relationship Specialty Start Date End Date Emigdio Veronica MD [address] [place] [phone] PCP - General Internal Medicine - Primary Care 05/22/20 02/21/24 documented as of this encounter
--- OUTSIDE RECORDS SUMMARY | 2024-11-22 17:01 | XMS_ITS | Encounter Summary ---
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 * Telephone Encounter - Emigdio Veronica MD - 09/09/2022 1604 EDT Her ammonia level is indeed elevated. We obtained in it partly to assess symptoms of confusion/mental fog that Tara noted in her last encounter as well as other LFTs. Her LFTs however returned normal as did her electrolytes making worsening hepatic function unlikelyto be the sole source of this abnormality. There are many causes of elevated serum ammonia, but a common cause is renal disease. Given her recent lab work reflects an acute worsening of her kidney function I suspect that this is the source ofher elevated ammonia levels. My recommendation would be a dose reduction in her diuretics as it is likely that we have over diuresed Tara again in a setting of trying to reduce her discomofrt related to edema. I would have her cut down on her current diuretic dosage. Last I recall her lasix dose was increased to 60 mg daily. This should be reduced to 40 mg daily for now. I would keep her spirolactone at 100 mg daily. We can recheck her BMP and ammonia level prior to our next encounter. * Telephone Encounter - Jes Mayorga RN - 09/09/2022 1348 EDT See ammonia result of 65. Recommendations? * Telephone Encounter - Noemi Hall - 09/09/2022 1028 EDT Reason for Call: Results Summary/Symptoms: patient states she had blood work done regarding her amonia content. Says she received results via [employer] and it is almost double. She is very concerned and would like a call to see what the next step will be. Patient does not want to wait until her appt on 09.17.22 Onset and Duration: na Does the patient have a computer, laptop or smart phone with high speed & video capability? N/A If so, would they be interested in doing a video visit via Zoom? N/A Appointment Offered? No Noemi Hall 09/09/2022 10:29 documented in this encounter Plan of Treatment Upcoming Encounters Date Type Department Care Team (Late st Contact Info) Description 01/04/2025 13:00 EST Office Visit [facility] Ophthalmology - [address] [phone] Gagandeep Rome MD [address] [place] [address], [facility] [address] [place] [phone] 02/11/2025 13:30 EDT Telemedicine [facility] Hematology & Oncology [address] [phone] Dana Padilla MD [address] [place] [address], [address] [place] [phone] documented as of this encounter Results * (ABNORMAL) AMMONIA (09/16/2022 12:32 EDT) Ammonia 59(H) <34 umol/L 09/16/2022 13:[address] [facility] Blood VENOUS BLOOD / Unknown Venipuncture / Unknown 09/16/2022 12:32 EDT 09/16/2022 12:32 EDT us Emigdio Veronica MD CHEMISTRY & BLOOD GAS OR DERABLES Final Result Performing Organization Address City/[facility]/ZIP Co de Phone Number [facility] [address] [place] [address] * (ABNORMAL) BASIC METABOLIC PANEL (BMP) (09/16/2022 12:32 EDT) Sodium 141 136 - 145 mmol/L 09/16/2022 13:19 [facility] Potassium 4.0 3.5 - 5.0 mmol/L 09/16/2022 13:19 [facility] Chloride 100 96 - 110 mmol/L 09/16/2022 13:19 [facility] CO2 Total 31 22 - 32 mmol/L 09/16/2022 13:19 [facility] Anion Gap 10 5 - 14 09/16/2022 13:19 [facility] Glucose 118(H) 70 - 100 mg/dL 09/16/2022 13:19 [facility] Calcium 8.7 8.5 - 10.5 mg/dL 09/16/2022 13:19 [facility] BUN 13 10 - 26 mg/dL 09/16/2022 13:19 [facility] Creatinine 1.14(H) 0.52 - 1.04 mg/dL 09/16/2022 13:19 [facility] eGFR 54(L) >60 mL/min/1.73 m2 09/16/2022 13:19 [facility] Blood VENOUS BLOOD / Unknown Venipuncture / Unknown 09/16/2022 12:32 EDT 09/16/2022 12:32 EDT us Emigdio Veronica MD CHEMISTRY & BLOOD GAS OR DERABLES Final Result [facility] [address] [place] [address] documented in this encounter Visit Diagnoses Diagnosis MUSA (acute kidney injury) ([facility])- Primary Acute kidney failure, unspecified NAFLD (nonalcoholic fatty liver disease) Other chronic nonalcoholic liver disease documented in this encounter Care Teams Reel Cutter Relationship Specialty Start Date End Date Emigdio Veronica MD [address] [place] [phone] PCP - General Internal Medicine - Primary Care 05/22/20 02/21/24 documented as of this encounter
--- OUTSIDE RECORDS SUMMARY | 2024-11-22 17:01 | XMS_ITS | Encounter Summary ---
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 30 Tablet 1 08/16/2022 10/20/2022 documented in this encounter Miscellaneous Notes * Telephone Encounter - Deidra Lima RN - 08/16/2022 1129 EDT Does not want dissolving tablets, pending tablets. If agreeable please send. * Telephone Encounter - Dorcas Ebony - 08/16/2022 1021 EDT Requested Prescriptions Pending Prescriptions Disp Refills ??? ondansetron (ZOFRAN-ODT) 4 mg disintegrating tablet 10 Tablet 0 Sig: Take 1 Tablet by mouth every 8 hours as needed for Nausea. Pt does NOT want the dissolvable tablets as she says they make her sick & defeat the purpose. [facility]/pharmacy #[id number] - [address] Confirmed Pharmacy? Yes Patient out of medication? Yes: Needs Refill Now Last Refill Date: 07.22.22 Refills left? (explain exceptions requiring early refill) No Recent Visits Date Type Provider Dept 08/11/22 Office Visit Emigdio Veronica MD [facility] 07/29/22 Office Visit Scottie Campuzano PA-C [place] [facility] 07/16/22 Office Visit Scottie Campuzano PA-C [facility] 06/25/22 Office Visit Emigdio Veronica MD [facility] 05/20/22 Office Visit Nguyen Nolasco NP [place] [facility] 02/17/22 Office Visit Emigdio Veronica MD [place] [facility] 02/10/22 Office Visit Darlene Rollins NP [place] 01/27/22 Office Visit Osmany Matthews MD [place] [facility] 11/25/21 Office Visit Emigdio Veronica MD [place] [facility] 11/11/21 Office Visit Scottie Campuzano PA-C [place] [facility] Showing recent visits within past 540 days with a meds authorizing provider and meeting all other requirements Future Appointments Date Type Provider Dept 09/17/22 Appointment Emigdio Veronica MD [place] [facility] Showing future appointments within next 150 days with a meds authorizing provider and meeting all other requirements Future appointment: Already Scheduled Ebony Toscano 08/16/2022 10:21 documented in this encounter Plan of Treatment Upcoming Encounters Date Type Department Care Team (Late st Contact Info) Description 01/04/2025 13:00 EST Office Visit [facility] Ophthalmology - [address] [phone] Gagandeep Rome MD [address] [place] [address], [facility] 5 [place] [phone] 02/11/2025 13:30 EDT Telemedicine [facility] Hematology & Oncology [address] [phone] Dana Padilla MD [address] [place] [address], Level [address] [place] [phone] documented as of this encounter Visit Diagnoses Not on filedocumented in this encounter Discontinued Medications Medication Sig Discontinue Reason Start Date End Da te ondansetron (ZOFRAN-ODT) 4 mg disintegrating tablet Take 1 Tablet by mouth every 8 hours as needed for Nausea. Alternate therapy 07/22/2022 08/16/2022 ondansetron (ZOFRAN) 4 mg tablet Take 1 Tablet by mouth every 8 hours as needed for Nausea. Reorder 05/04/2022 08/16/2022 documented as of this encounter Care Teams Dust Sampler Relationship Specialty Start Date End Date Emigdio Veronica MD [address] [place] [phone] PCP - General Internal Medicine - Primary Care 05/22/20 02/21/24 documented as of this encounter
--- OUTSIDE RECORDS SUMMARY | 2024-11-22 17:01 | XMS_ITS | Encounter Summary ---
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 Pharmacist states that she has countless amount of notes in their system statingthat it is ok to pepper picker meds early. Pharmacist states that eventually they are going to have to say that they can not let pt pepper picker meds early. Explains that pt did have an appt today and that pt has increased pain. Pharmacist agrees with script Today * Telephone Encounter - Emigdio Veronica MD - 09/17/2022 1518 EDT Triage can you reach out to [facility] preferred [facility] pharmacy and let them know I am giving the ok for an additional 10 tablet supply of her oxycodone. I have already placed the prescription. documented in this encounter Plan of Treatment Upcoming Encounters Date Type Department Care Team (Late st Contact Info) Description 01/04/2025 13:00 EST Office Visit [facility] Ophthalmology - [address] [phone] Gagandeep Rome MD [address] [place] [address], [facility] [address] [place] [phone] 02/11/2025 13:30 EDT Telemedicine [facility] Hematology & Oncology [address] [phone] Dana Padilla MD [address] [place] [address], [facility] 2 [place] [phone] documented as of this encounter Visit Diagnoses Not on filedocumented in this encounter Care Teams Grain Packer Relationship Specialty Start Date End Date Emigdio Veronica MD [address] [place] [phone] PCP - General Internal Medicine - Primary Care 05/22/20 02/21/24 documented as of this encounter
--- OUTSIDE RECORDS SUMMARY | 2024-11-22 17:01 | XMS_ITS | Encounter Summary ---
Author Organization [facility] Address [address] [place] [address] Care Team Providers Care Returned Goods Repairer Name Role Phone Emigdio Veronica MD Primary Care Provider + Reason for Visit * Reason Comments Chronic Pain has had recently kiley k pain so bad that she couldn't walk Numbness toes and finger tips Memory Loss has had a recent sle ep study Encounter Details Date Type Department Care Team (Late st Contact Info) Description 09/17/2022 14:30 EDT Office Visit [facility] Adult Primary Care - [place] [address] [place] [address] Emigdio Veronica MD [address] [place] [address] Chronic pain syndrome (Primary Dx); Numbness in both hands; HUEY (obstructive sleep apnea); MUSA (acute kidney injury) ([facility]); Hyperglycemia; Healthcare maintenance; Need for shingles vaccine Social History Tobacco Use Types Packs/Day Years [...] 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 file Not on file Not o n file documented as of this encounter Last Filed Vital Signs Vital Sign Reading Time Taken Comments Blood Pressure 118/58 09/17/2022 1421 EDT Pulse 86 09/17/2022 1421 EDT r Temperature 35.6 ??C (96.1 ??F) 09/17/2022 1421 EDT Respiratory Rate 16 09/17/2022 1421 EDT Oxygen Saturation - - Inhaled Oxygen Concentration - - Weight 112.9 kg (249 lb) 09/17/2022 1421 EDT Height - - Body Mass Index 42.74 09/07/2022 203 EDT documented in this encounter Functional Status [...] Daily Max: 20 mg 10 Tablet 09/17/2022 documented in this encounter Progress Notes * Emigdio Veronica MD - 09/17/2022 1430 EDT Tara Yun is a 62 y.o. 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 Chronic Pain has had recently back pain so bad that she couldn't walk ??? Numbness toes and finger tips ??? Memory Loss has had a recent sleep study SUBJECTIVE: Tara Yun presents today for a follow-up visit for a constellation of symptoms. She continues to note poor control of her chronic pain syndrome believed to be multifactorial in nature and related to her history of portal and splenic vein thrombosis, cirrhosis, lower extremity edema as well as mild degenerative changes of the spine. She has previously been trialed on numerous pain relieving agents by other providers including gabapentin, pregabalin, methocarbamol, oxycodone, hydromorphone, tricyclic antidepressants among others. She has expressed that only opiates are effective in relieving her pain and has a known history of drug seeking behavior to previous providers. She is currently on a combination of oxycodone 5 mg TID PRN, gabapentin recently increased to 300 mg T ID and lidocaine patches. She has been advised against acetaminophen use due to her history of thrombocytopenia as well as NSAIDs due to her history of renal dysfunction. She has been hesitant to pursue nonpharmacologic pain interventions in the past. She notes increased lower back pain recently stating that over the last few weeks in the absence oftrauma or other inciting events she has appreciated severe pain in her bilateral back at the level of L4. She has not appreciated any sciatica or radicular symptoms. She is scheduled to establish with the comprehensive pain clinic this coming month, but is requesting an immediate increase in her oxycodone prescription. 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 She notes a sensation of numbness, but no paraesthesias. She does note the presence of a sharp pain on the dorsal aspect of her right foot, but is uncertain if the two sensations arerelated. She completed several labs ordered by Scottie Campuzano of our office to evaluate her concerns which demonstrates no abnormalities in her vitamin B12 or TSH level. Her labs did reflect an elevated ammonia level which we discussed was likely secondary to her apparent MUSA from excessive diuretic use. She confirms that she has dose decreased her lasix from 60 mg to 40 mg with stable control her weight and edema level in her legs. Her last GFR appeared to be improving to 54 from 46 this month, but is still above her baseline. She continues to note severe fatigue and mental fog and notably has been diagnosed with severe HUEY on a recent diagnostic polysomnogram. She is awaiting a follow-up appointment with sleep medicine toappropriate fit her for a CPAP machine. ROS as above Medications and history reviewed. Current Outpatient Medications Medication ??? albuterol 90 mcg/actuation inhaler ??? chlorzoxazone (PARAFON FORTE) 500 mg tablet ??? diclofenac sodium gel ??? furosemide (LASIX) 20 mg tablet ??? furosemide (LASIX) 20 mg tablet ??? [...] mL (0.083 %) nebulizer solution OBJECTIVE: BP 118/58 (BP Cuff Location: Left arm, BP Patient Position: Sitting, BP Cuff Sizes: Adult, large) Pulse 86 Comment: r Temp 35.6 ??C (96.1 ??F) (Tympanic) Resp 16 Wt (!) 112.9 kg (249 lb) BMI 42.74 kg/m?? Gen: Uncomfortable appearing middle age obese female, NAD HEENT: EOMI, PERRL, oropharynx moist, conjunctiva pink, no scleral injection/ icterus Extrem: no edema, warm and well perfused Skin: No rashes or erythema, intact Musk: Normal muscle tone and bulk, gait within normal limits Neuro: A&Ox3, CN II through XII grossly intact Recent Labs/Imaging: Reviewed in Epic ASSESSMENT and PLAN: Tara was seen today for chronic pain, numbness and memory loss. Diagnoses and all orders for this visit: Chronic pain syndrome: Longstanding issue with a complex pain history. Patient expresses interest in increasing her chronic opiate therapy dose today. We discussed at length the poor efficacy of opiates in managing chronic pain and the extensive risks associated with long-term use at higher doses. In particular we noted her high risk for respiratory depression / worsening sleep apnea especially in the setting of her combined renal and liver disease. We again discussed the importance of incorporating nonpharmacologic interventions to assist with her pain control as it is unlikely that any medical agent will fully resolve her pain. - Will authorize 10 additional tablets of 5 mg oxycodone. Advised that the patient can take an additional tablet with one of her existing doses of oxycodone daily for the next 10 days. Stressed that this is a temporary increase and that she should not exceed 20 mg daily. - Continue gabapentin at 300 mg TID. Would be hesitant to increase dose further in setting of recent renal dysfunction. Could consider small dose increase if GFR stabilizes above 50. - Continue lidocaine patches Numbness in both hands and toes: Unclear etiology high suspicion for diffuse process. Vitamin B12 intermediate at 396. Patient has history of hyperglycemia, but no overt diagnosis of prediabetes or diabetes - HOMOCYSTEINE; Future - METHYLMALONIC ACID; Future - SPEP, INCLUDES QUANTITATION OF MONOCLONAL SPIKE; Future - Should lab work return negative could consider EMG as next step in evaluation HUEY (obstructive sleep apnea) - Follow-up with sleep medicine on starting CPAP therapy MUSA: Improving with reduction in furosemide dosing. Will repeat BMP prior to next encounter - BMP Healthcare maintenance - SHINGRIX (ZOSTER VACCINE, RECOMBINANT) IM Health Maintenance Topic Date Due ??? Asthma [...] ??? Current Opioid Misuse Measurement 08/11/2023 ??? [place] Prescription Monitoring System 09/17/2023 ??? Pneumococcal Immunization (4 - PPSV23 or PCV20) 2025 ??? Lipid Profile Screening (Cholesterol) 04/16/2027 ??? Tetanus (Adult) Immunization 03/17/2029 ??? HIV Screening Completed ??? Shingles Immunization Completed ??? Hepatitis C Screen Completed ??? Influenza Immunization (Adult) Completed ??? Pertussis (Adult) Immunization Discontinued F/u: Return in about 2 months (around 11/17/2022) for f30, Chronic pain. I spent a total of 40 minutes with this patient today face to face, in chart review and in documentation and 35 minutes of that time was spent on education and counseling for Some of this note was transcribed with [employer] software. While it was proofread, it may still contain unnoticed grammatical or word errors due to incorrect transcribing. Emigdio Veronica MD 09/19/2022 13:59 * Ashley Weems - 09/17/2022 1430 EDT I. Patient here for shingrix 2nd vaccine II. Patient education: Topic: shingrix second vaccine Method: Handout Taught to: Patient Barriers: None Outcomes: verbalized understanding III. I was supervised by who was present and immediately available in the office suite. Ashley Weems,09/17/2022 15:30 documented in this encounter Plan of Treatment Upcoming Encounters Date Type Department Care Team (Late st Contact Info) Description 01/04/2025 13:00 EST Office Visit [facility] Ophthalmology [address] [id number] Gagandeep Rome MD [address] [place] [address], [address] [place] [phone] 02/11/2025 13:30 EDT Telemedicine [facility] Hematology & Oncology [address] [address] Dana Padilla MD [address] [facility], [facility], [address] [place] [address] documented as of this encounter Results * (ABNORMAL) METHYLMALONIC ACID (09/28/2022 10:48 EST) Pathologist [facility] Methylmalonic Acid, QN, S 0.54(H) <=0.40 nmol/mL 09/30/2022 10:49 EST [facility] Comment: In this sample, the concentration of methylmalonic acid (MMA) was minimally elevated. As the upper limit of the reference range varies in different laboratories from 0.4 to 0.6 nmol/mL. This finding could be considered normal, especially if the patient does not show other signs of vitamin B12 deficiency. ADDITIONAL INFORMATION This test was developed and its performance characteristics determined by [facility] in a manner consistent with CLIA requirements. This test has not been cleared or approved by the U.S. Food and Drug Administration. Test Performed by: [address] [address] Rn Diabetes: Jessu Stanford M.D. Ph.D.; CLIA# [id number] Blood VENOUS BLOOD / Unknown Venipuncture / Unknown 09/28/2022 10:48 EST 09/28/2022 10:59 EST us Emigdio Veronica MD CHEMISTRY & BLOOD GAS OR DERABLES Final Result [address] [address] * (ABNORMAL) HOMOCYSTEINE (09/28/2022 10:48 EST) Pathologist [facility] Homocysteine 15.9(H) 5.0 - 13.9 umol/L 09/29/2022 9:27 EST [facility] Comment:Results may be false ly elevated if sample is not collected on ice or is not removed from cells within 1 hour of collection. Blood VENOUS BLOOD / Unknown Venipuncture / Unknown 09/28/2022 10:48 EST 09/28/2022 10:59 EST Narrative [facility] - 09/29/2022 9:27 EST Reference range may not apply to non-fasting samples. ??It is not recommended that EDTA plasma and serum from the same patient be used interchangeably. ??Serum concentrations have been observed to be up to 10% higher than EDTA plasma. Reference range may not apply to serum results. Emigdio Veronica MD CHEMISTRY & BLOOD GAS OR DERABLES Final Result Performing Organization Address [facility] Co de Phone Number [facility] [address] [place] [phone] * HEMOGLOBIN A1C (09/16/2022 12:32 EDT) Hemoglobin A1c 5.6 <5.7 % 09/17/2022 17:47 EDT [facility] Comment: Glycemic Status References: Normal: ??<5.7% Pre-Diabetes: ??5.7% - 6.4% Diagnostic of Diabetes: ??> or = 6.5% (if confirmed) Est Avg Glucose 114 mg/dL 17:47 EDT [facility] Comment:The eAG represents t he A1c result expressed as average glucose in mg/dL. Blood VENOUS BLOOD / Unknown Venipuncture / Unknown 09/16/2022 12:32 EDT 09/16/2022 12:32 EDT Emigdio Veronica MD CHEMISTRY & BLOOD GAS OR DERABLES Final Result Performing Organization Address [facility] Co de Phone Number [facility] [address] [place] [address] documented in this encounter Visit Diagnoses Diagnosis Chronic pain syndrome- Primary Numbness in both hands Disturbance of skin sensation HUEY (obstructive sleep apnea) Obstructive sleep apnea (adult) (pediatric) MUSA (acute kidney injury) ([facility]) Acute kidney failure, unspecified Hyperglycemia Other abnormal glucose Healthcare maintenance Routine general medical examination at a health care facility Need for shingles vaccine Need for prophylactic vaccination and inoculation against other viral diseases documented in this encounter Discontinued Medications Medication Sig Discontinue Reason Start Date End Da te oxyCODONE (ROXICODONE) 5 mg immediate release tablet Take 1 Tablet by mouth 3 times daily as needed for up to 28 days for Pain. Daily Max: 15 mg Reorder 09/01/2022 09/17/2022 documented as of this encounter Orders Immunization/Injection Count Last Ordered Date First Ordered Date SHINGRIX (ZOSTER VACCINE, RECOMBINANT) IM 1 09/17/2022 documented in this encounter Care Teams Returned Goods Repairer Relationship Specialty Start Date End Date Emigdio Veronica MD [address] [place] [address] PCP - General Internal Medicine - Primary Care 05/22/20 02/21/24 documented as of this encounter
--- OUTSIDE RECORDS SUMMARY | 2024-11-22 17:01 | XMS_ITS | Encounter Summary ---
Author Organization [facility] Address [address] [place] [address] Care Team Providers Care Bus Company Manager Name Role Phone Emigdio Veronica MD Primary Care Provider + Reason for Visit * Cardiology (Routine/Next Available) - Closed Specialty Diagnoses / Procedures Referred By Contac t Referred To Contact Nuclear Medicine Diagnoses Shortness of breath Procedures NM CARD PET NUCLEAR STRESS [place], [place] Phone: tel: fax: [facility] Referral ID Status Reason Start Date Expiration Date Visits Re quested Visits Authorized [id number] Closed 06/30/2022 11/20/2022 1 1 Encounter Details Date Type Department Care Team (Latest Contact Info) Description 07/30/2022 8:06 EDT - 07/30/2022 8:09 EDT Hospital Encounter [facility] Non-Invasive Cardiology - [facility] [address] [place], [place] [id number] Discharge Disposition: Home or Self Care Social [...] Industry 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 50 g 1 2 INCRUSE ELLIPTA 62.5 mcg/actuationIndica tions:Chronic obstructive pulmonary disease, unspecified COPD type ([facility]) INHALE 1 PUFF BY MOUTH DIRECTED DAILY [...] before breakfast. 90 Tablet 1 2 10/21/20 22 lidocaine 4 % patch Apply to back [...] Info) Description 01/04/2025 13:00 EST Office Visit [facility] Ophthalmology - [address] [phone] Gagandeep Rome MD [address] [facility], [facility] [address] [place] [phone] 02/11/2025 13:30 EDT Telemedicine [facility] [place] Hematology & Oncology - [address] [address] Dana Padilla MD [address] [place] [address] [address] [place] [address] documented as of this encounter Procedures Procedure Name Priority Date/Time Associated Diagnosis Comments NM CARD PET PHARM MULT STUDIES CMP W/AQMBF AND CALCIUM SCORING Routine 07/30/2022 10:26 EDT Shortness of breath documented in this encounter Visit Diagnoses Not on filedocumented in this encounter Administered Medications Inactive Administered Medications - up to 3 most recent administrations Medication Order MAR Action Action Date Dose Rate Site regadenoson (LEXISCAN) injection syringe 0.4 mg 0.4 mg, intravenous, NOW X1, 1 dose, On Tue07/30/22 at 0915, Routine Given 07/30/2022 9:39 EDT 0.4 mg documented in this encounter Orders Medications Ordered That Luc ht Not Have Been Administered Count Last Ordered Date First Ordered Date regadenoson (LEXISCAN) injec tion syringe 0.4 mg 1 07/30/2022 documented in this encounter Care Teams Bus Company Manager Relationship Specialty Start Date End Date Emigdio Veronica MD [address] [place] [phone] PCP - General Internal Medicine - Primary Care 05/22/20 02/21/24 documented as of this encounter
--- OUTSIDE RECORDS SUMMARY | 2024-11-22 17:01 | XMS_ITS | Encounter Summary ---
Author Organization [facility] Address [address] [place] [address] Care Team Providers Care Line Maintenance Technician Name Role Phone Emigdio Veronica MD Primary Care Provider + Reason for Referral * Cardiology (Routine/Next Available) - Closed Specialty Diagnoses / Procedures Referred By Contac t Referred To Contact Nuclear Medicine Diagnoses Shortness of breath Procedures NM CARD PET NUCLEAR STRESS Dolly Branch, HAR[place] Phone: tel: fax: [facility] Referral ID Status Reason Start Date Expiration Date Visits Re quested Visits Authorized [id number] Closed 06/30/2022 11/20/2022 1 1 Reason for Visit * Cardiology (Routine/Next Available) - Closed Specialty Diagnoses / Procedures Referred By Contac t Referred To Contact Nuclear Medicine Diagnoses Shortness of breath Procedures NM CARD PET NUCLEAR STRESS Dolly Branch, [place] Phone: tel: fax: [facility] Referral ID Status Reason Start Date Expiration Date Visits Re quested Visits Authorized [id number] Closed 06/30/2022 11/20/2022 1 1 Encounter Details Date Type Department Care Team (Latest Contact Info) Description 07/30/2022 8:06 EDT - 07/30/2022 8:09 EDT Hospital Encounter [facility] Radiology [place] [address] Shortness of breath; Portal vein thrombosis; Upper GI bleed Discharge Disposition: Home or Self Care Social [...] Date 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 Until seen by PCP. 2 09/29/20 22 ketotifen (ZADITOR) 0.025 % (0.035 %) ophthalmic [...] Office Visit [facility] Ophthalmology - [address] [phone] Gagandeep Rome MD [address] [place] [address] 5 [place] [phone] 02/11/2025 13:30 EDT Telemedicine [facility] [place] Hematology & Oncology - [address] [address] Dana Padilla MD [address] [place] [address], [facility] 2 [place] [address] documented as of this encounter Procedures Procedure Name Priority Date/Time Associated Diagnosis Comments COMPLETE BLOOD COUNT Routine 07/30/2022 10:34 EDT Portal vein thrombosis Upper GI bleed NM CARD PET PHARM MULT STUDIES CMP W/AQMBF AND CALCIUM SCORING Routine 07/30/2022 10:26 EDT Shortness of breath documented in this encounter Results * (ABNORMAL) COMPLETE BLOOD COUNT (07/30/2022 10:34 EDT) WBC 3.07(L) 4.00 - 12.40 K/cmm 07/30/2022 11:14 [facility] RBC 3.94 3.86 - 5.04 M/cmm 07/30/2022 11:14 [facility] Hemoglobin 11.1(L) 11.6 - 15.2 gm/dL 07/30/2022 11:14 [facility] HCT 33.6(L) 34.9 - 44.4 % 07/30/2022 11:14 [facility] MCV 85 81 - 98 fl 07/30/2022 11:14 [facility] MCH 28.2 26.7 - 33.3 pg 07/30/2022 11:14 [facility] MCHC 33.0 32.1 - 35.9 gm/dL 07/30/2022 11:14 [facility] RDW-CV 15.0(H) <14.7 % 07/30/2022 11:14 [facility] RDW-SD 46.5 <50.4 fl 07/30/2022 11:14 [facility] PLT 80(L) 141 - 377 K/cmm 07/30/2022 11:14 [facility] MPV 9.8 9.5 - 12.7 fl 07/30/2022 11:14 [facility] Blood VENOUS BLOOD / Unknown Venipuncture / Unknown 07/30/2022 10:34 EDT 07/30/2022 11:05 EDT us Dana Padilla MD HEMATOLOGY & PF4 ORDERABLES Pricila l Result [facility] [address] [place] [address] * NM CARD PET PHARM MULT STUDIES CMP W/AQMBF AND CALCIUM SCORING (07/30/2022 10:26 EDT) Target HR 158 bpm MCKESSON N MIS MERGE CARDIO Peak HR 86 bpm MCKESSON N MIS MERGE CARDIO Percent HR 54 MCKESSON NMIS MERGE CARDIO Baseline Systolic BP 112 mmHg SATISHSON NMIS MERGE CARDIO Systolic BP 86 mmHg MCKESSON NMIS MERGE CARDIO Recovery BP 100 mmHg MCKESSON NMIS MERGE CARDIO Pre test likelihood of obstructive CAD 14 MCMALINDA NMI S MERGE CARDIO LAD Flow Number 1.69 MCJENNIFER SSON NMIS MERGE CARDIO LCX Myocardial Flow Number 1.45 MCJANESON NMIS MERGE CARDIO RCA Number 1.79 MCJANESON NMIS MERGE CARDIO Overall Number 1.65 SATISH SON NMIS MERGE CARDIO Nuc Stress EF 75 % CELY ON NMIS MERGE CARDIO CALALM 0.00 MCKESSON N MIS MERGE CARDIO Anatomical Region Laterality Modality Chest Positron Emissio n Tomography (PET) Narrative 08/02/2022 16:48 EDT ?Perfusion: There was no myocardial perfusion defect at rest and post stress. ?Function: Global LV function is normal. Post-stress ejection fraction is 75 %. ?Stress ECG: Stress ECG was negative. ?Stress data: Maximal heart rate during stress was 86 (54 % of MPHR). Patient experienced no chest pain. ?There is no coronary calcification. Stress Function Comments Global LV function was normal. Global RV function was normal. Post-stress ejection fraction was 75 %. The left ventricle size was normal at stress. The right ventricle size was normal at stress. There were no regional wall motion abnormalities. Baseline ECG There was normal sinus rhythm. Non-specific ST changes were noted at baseline. There was interventricular conduction delay noted on the baseline ECG. There was no ectopy noted on the baseline ECG. Stress ECG There were no significant ST segment deviations noted during stress. There were no significant arrhythmias noted during stress. Recovery ECG There were no significant arrhythmias noted during recovery. Result ECG Stress ECG was negative. HPI and Indications Indications: asymptomatic. History: 62 yo female with no known CAD experiencing ROBB. Pt seen in ED on 07/22 with SOB and fluid retention, diagnosis COPD exacerbation and CHF. Pt had an episode of chest pain yesterday (07/29) and was being seen in PCP office for follow up from ED visit. States the pain did not have any aggravating or relieving factors. Denies chest pain or pressure prior to episode yesterday when SOB/ROBB symptoms occur. Denies chest pain, pressure, or SOB on arrival for PET. Patient Status Risk Factors Asthma, current smoker, COPD and peripheral vascular disease. Stress Data Procedure: initial setup. A baseline ECG was recorded, ECG tracings were obtained using the Q-Stress 4 machine. Surface ECG leads and manual cuff blood pressure measurements were monitored. Lung sounds: Normal. Regadenoson. Baseline blood pressure was normal. Pre test likelihood of obstructive CAD: 14 . Patient experienced no chest pain. Exercise was terminated due to protocol complete (submax or pharmocological). The patient tolerated the procedure well and was discharged from the lab. Maximal heart rate during stress was 86 (54 % of MPHR). Medications Diuretics. Nuclear Stress Additional Findings There was no coronary calcification. Myocardial Flow [place] The myocardial flow reserve was 1.69 for the LAD, which was abnormal. The myocardial flow reserve was 1.45 for the LCX, which was abnormal. The myocardial flow reserve was 1.79 for the RCA, which was abnormal. The overall myocardial flow reserve was 1.65 which was abnormal. Perfusion Defect There was no myocardial perfusion defect at rest and post stress. Image Protocol Myocardial perfusion imaging using PET/CT was performed. The study was a 1-day rest-stress study. Attenuation correction was used. The patient was imagined in the supine position. Transmission scanning was performed with tidal breathing. Gated CT through the heart with 2.5mm sections was performed for calcium scoring. Images acquired at rest and post stress were processed and reviewed. Nuc Impression Normal study after pharmacological stress. Perfusion Scoring Resting Summed Score: 0 Percent Normal: 0.00% The left ventricular perfusion is normal. Perfusion Scoring Stress Summed Score: 0 Percent Normal: 0.00% The left ventricular perfusion is normal. Perfusion Scores: SRS Score: 0 Percentage Abnormal: 0.00% Perfusion Scores: SSS Score: 0 Percentage Abnormal: 0.00% Perfusion Scores: SDS Score: 0 Percentage Abnormal: 0.00% us Dolly Branch NP CARDIAC NM ORDERABLES Final Res ult documented in this encounter Visit Diagnoses Diagnosis Shortness of breath Portal vein thrombosis Upper GI bleed Hemorrhage of gastrointestinal tract, unspecified documented in this encounter Administered Medications Inactive Administered Medications - up to 3 most recent administrations Medication Order MAR Action Action Date Dose Rate Site rubidium RB 82 injection 10 millicurie 10 millicurie, radiopharm IV, NOW X1, 1 dose, On Tue07/30/22 at 0945, Routine, Imaging Protocol Orders Given 07/30/2022 9:39 EDT 19 millicuries rubidium RB 82 injection 10 millicurie 10 millicurie, radiopharm IV, NOW X1, 1 dose, On Tue07/30/22 at 0945, Routine, Imaging Protocol Orders Given 07/30/2022 9:21 EDT 19.02 millicuries documented in this encounter Orders Medications Ordered That Luc ht Not Have Been Administered Count Last Ordered Date First Ordered Date rubidium RB 82 injection 10 millicurie 1 documented in this encounter Care Teams Line Maintenance Technician Relationship Specialty Start Date End Date Emigdio Veronica MD [address] [place] [address] PCP - General Internal Medicine - Primary Care 05/22/20 02/21/24 documented as of this encounter
--- OUTSIDE RECORDS SUMMARY | 2024-11-22 17:01 | XMS_ITS | Encounter Summary ---
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 unknown Last Refill Date: 07/15/22 Last Visit Date with Ordering Provider: 08/11/22 Next Non-Acute Visit Date Scheduled with Care Team: 09/17/22 BALDEMAR TAYLOR RN 08/19/2022 10:40 documented in this encounter Plan of Treatment Upcoming Encounters Date Type Department Care Team (Late st Contact Info) Description 01/04/2025 13:00 EST Office Visit [facility] Ophthalmology - [address] [phone] Gagandeep Rome MD [address] [place] [address], [facility] 5 [place] [phone] 02/11/2025 13:30 EDT Telemedicine [facility] Hematology & Oncology [address] [phone] Dana Padilla MD [address] [place] [address], [facility] [address] [place] [phone] documented as of this encounter Visit Diagnoses Not on filedocumented in this encounter Discontinued Medications Medication Sig Discontinue Reason Start Date End Da te ketotifen (ZADITOR) 0.025 % (0.035 %) ophthalmic solution Place 1 Drop into both eyes 2 times daily as needed (eye irritation). Do not exceed 2 applications per day 07/15/2022 08/19/2022 documented as of this encounter Care Teams Environmental Specialist Relationship Specialty Start Date End Date Emigdio Veronica MD [address] [place] [phone] PCP - General Internal Medicine - Primary Care 05/22/20 02/21/24 documented as of this encounter
--- OUTSIDE RECORDS SUMMARY | 2024-11-22 17:01 | XMS_ITS | Encounter Summary ---
Author Organization [facility] Address [address] [place] [address] Care Team Providers Care Monogram Operator Name Role Phone Emigdio Veronica MD Primary Care Provider + Reason for Visit * Reason Onset Date Comments Medications Refill Medications Refill 08/27/2022 Medications Refill 08/31/2022 Encounter Details Date Type Department Care Team (Late st Contact Info) Description 08/26/2022 Refill [facility] Adult Primary Care - [place] [address] [place] [address] Emigdio Veronica MD [address] [place] [address] Medications Refill; Medications Refill; Medications Refill Social History Tobacco [...] 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 180 Tablet 1 08/26/2022 3 documented in this encounter Miscellaneous Notes * Telephone Encounter - Ebony Toscano - 08/31/2022 1640 EDT Pt called back, she says she actually has been taking Gabapentin 300 mg, 1 BID since last week. Shesays she was looking at the wrong bottle when she called before. Please see 08.25.22 med management encounter. * Telephone Encounter - Ebony Toscano - 08/31/2022 1617 EDT Pt calling today asking for an increase in her Gabapentin. I xpld that an Rx for 300 mg, 1 BID was done for her on 08.26.22. She says she was not aware of that. She is going to check with the pharmacy. * Telephone Encounter - Sharon Joseph RN - 08/27/2022 1052 EDT Pt has a vm box not set up yet. Spoke to pt yesterday. Pt was written a new script for gabapentin 300mg twice a day so 100mg is not needed. * Telephone Encounter - Noemi Hall - 08/27/2022 1029 EDT Patient is unable to get at pharmacy because they say she should have extra. patient had needed to double up on the last script so is out * Telephone Encounter - Sharon Joseph RN - 08/26/2022 1653 EDT Gabapentin was sent in today for the 300mg dose bid * Telephone Encounter - Zully Guerrier - 08/26/2022 1627 EDT Pt calling, she has run out of the medication and so this needs to be sent as a high priority documented in this encounter Plan of Treatment Upcoming Encounters Date Type Department Care Team (Late st Contact Info) Description 01/04/2025 13:00 EST Office Visit [facility] Ophthalmology - [address] [phone] Gagandeep Rome MD [address] [place] [address] 5 [place] [phone] 02/11/2025 13:30 EDT Telemedicine [facility] Hematology & Oncology - [address] [phone] Dana Padilla MD [address] [place] [address], [facility] 2 [place] [address] documented as of this encounter Visit Diagnoses Not on filedocumented in this encounter Discontinued Medications Medication Sig Discontinue Reason Start Date End Da te traZODone (DESYREL) 100 mg tablet Take 2 Tablets by mouth at bedtime. 07/29/2022 08/26/2022 documented as of this encounter Care Teams Monogram Operator Relationship Specialty Start Date End Date Emigdio Veronica MD [address] [place] [phone] PCP - General Internal Medicine - Primary Care 05/22/20 02/21/24 documented as of this encounter
--- OUTSIDE RECORDS SUMMARY | 2024-11-22 17:01 | XMS_ITS | Encounter Summary ---
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 90 Tablet 1 08/19/2022 2 spironolactone (ALDACTONE) 50 mg tablet Take 2 Tablets by mouth daily. 90 Tablet 1 08/19/2022 2 oxyCODONE (ROXICODONE) 5 mg immediate release tablet Take 1 Tablet by mouth 3 times daily as needed for up to 28 days for Pain. Daily Max: 15 mg 84 Tablet 09/01/2022 2 spironolactone (ALDACTONE) 50 mg tablet Take 2 Tablets by mouth daily. 1 Tablet 08/18/2022 2 documented in this encounter Miscellaneous Notes * Telephone Encounter - Heike Mcleod RN - 08/19/2022 1553 EDT Call to Patient Relayed message per dr fernandez States she has enough left for a day of the 50 mg tabs. Pt would prefer to have 100 mg tabs sent in instead of the 50 mg tabs. sent Patient expressed understanding with no barriers No additional questions or concerns to be addressed at this time. * Telephone Encounter - Emigdio Fernandez MD - 08/19/2022 1532 EDT I was under the understanding that she obtained her spirolactone at her previous dosage of 50 mg tablets. She was instructed to take 100 mg by doubling these tablets once daily. The 1 tablets script was a signature adjustment to correctly record her dosage in her chart. I have refilled her spirolactone at 100 mg tablets. Please verify with the patient that she understands that she should only be taking 100 mg of spirolactone daily. I reviewed the patient's VPMS and it appears appropriate. Oxycodone refill signed for fill on 09/01/22 * Telephone Encounter - Dorcas Ebony - 08/19/2022 1430 EDT Pt calling today, her Spironolactone did not go to the pharmacy, it was only done for #1 tablet. Pt needs today. Her Oxycodone is still pending as well, pt is aware that it is not due yet. * Telephone Encounter - Sharon Joseph RN - 08/18/2022 1259 EDT Chronic controlled medication yes Last med check visit 08/11/22 Future visit scheduled Yes 09/17/22 Vpms check Yes 10/08/22 Prescription agreement Yes 06/25/23 Patient due for refill Yes not until 09/01/22 Is there a plan for tapering of medication noted in chart? unknown * Telephone Encounter - Sharon Joseph RN - 08/18/2022 1255 EDT Pt states that she was only taking the spirolactone 50 mg tabs daily but pt will start taking to 100 mg today Pt states that she would like a refill of the oxycodone she knows she is due 09/01 will update the script for due date * Telephone Encounter - Emigdio Fernandez MD - 08/18/2022 1232 EDT Her dosage should be 100 mg daily of the spirolactone. I have adjusted the signature. She can double her current 50 mg tablets and when she gets low I'll send her next refill for 100 mg tablets. * Telephone Encounter - Sharon Joseph RN - 08/18/2022 1137 EDT Just to clarify Pt states that she was increased to 100 mg of spirolactone in the hospital. But the visit note says50 mg just making sure the script shoul be the the 50 mg * Telephone Encounter - Ebony Toscano - 08/18/2022 1111 EDT Reason for Call: Medication Management Summary/Symptoms: Pt says she picked up a refill for her Spironolactone. She says she picked up 50 mg. She says when she was in the hospital it was increased to 100 mg. The pt ?what dosage she should be taking? Onset and Duration: N/A Does the patient have a computer, laptop or smart phone with high speed & video capability? N/A If so, would they be interested in doing a video visit via Zoom? N/A Appointment Offered? No Ebony Toscano 08/18/2022 11:11 documented in this encounter Plan of Treatment Upcoming Encounters Date Type Department Care Team (Late st Contact Info) Description 01/04/2025 13:00 EST Office Visit [facility] Ophthalmology - [address] [phone] Gagandeep Rome MD [address] [place] [address], [facility] [address] [place] [phone] 02/11/2025 13:30 EDT Telemedicine [facility] Hematology & Oncology [address] [address] Dana Padilla MD [address] [place] [address], [facility] [address] [place] [phone] documented as of this encounter Visit Diagnoses Not on filedocumented in this encounter Discontinued Medications Medication Sig Discontinue Reason Start Date End Da te spironolactone (ALDACTONE) 50 mg tablet Take 1 Tablet by mouth daily. Order modification 06/21/2022 08/18/2022 spironolactone (ALDACTONE) 50 mg tablet Take 2 Tablets by mouth daily. Reorder 08/18/2022 08/19/2022 oxyCODONE (ROXICODONE) 5 mg immediate release tablet Take 1 Tablet by mouth every 8 hours as needed for Pain. Daily Max: 15 mg Duplicate order 04/13/2022 08/19/2022 oxyCODONE (ROXICODONE) 5 mg immediate release tablet Take 1 Tablet by mouth 3 times daily as needed for up to 28 days for Pain. Daily Max: 15 mg Reorder 08/04/2022 08/18/2022 spironolactone (ALDACTONE) 50 mg tablet Take 2 Tablets by mouth daily. 08/19/2022 08/19/2022 documented as of this encounter Care Teams Lease Purchase Driver Relationship Specialty Start Date End Date Emigdio Fernandez MD [address] [place] [phone] PCP - General Internal Medicine - Primary Care 05/22/20 02/21/24 documented as of this encounter
--- OUTSIDE RECORDS SUMMARY | 2024-11-22 17:01 | XMS_ITS | Encounter Summary ---
Author Organization [facility] Address [address] [place] [address] Care Team Providers Care Electrical Electronics Engineer Name Role Phone Emigdio Veronica MD Primary Care Provider + Reason for Visit * Reason Comments Follow-up ED and hospital addm ission Encounter Details Date Type Department Care Team (Late st Contact Info) Description 08/11/2022 9:30 EDT Office Visit [facility] [place] [address] [place] [address] Emigdio Veronica MD [address] [place] [address] HUEY (obstructive sleep apnea) (Primary Dx); Other insomnia; Chronic pain syndrome; Chronic kidney disease, unspecified CKD stage; Confusion; Other hypervolemia; Healthcare maintenance Social History Tobacco Use Types [...] 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 Yes 07/22/2022 17:10 EDT documented as of this encounter Last Filed Vital Signs Vital Sign Reading Time Taken Comments Blood Pressure 110/53 08/11/2022 0929 EDT Pulse 85 08/11/2022 0929 EDT r Temperature 35.6 ??C (96.1 ??F) 08/11/2022 0929 EDT Respiratory Rate 16 08/11/2022 0929 EDT Oxygen Saturation - - Inhaled Oxygen Concentration - - Weight 111.1 kg (245 lb) 08/11/2022 0929 EDT Height - - Body Mass Index 42.05 07/29/2022 1333 EDT documented in this encounter Functional Status * Are you deaf or do you have serious difficulty hearing? Answer Date of Assessment Author No 06/16/2022 0:00 EDT Soila Murphy, KENN * Are you blind or do [...] Filled Start Date End Date gabapentin (NEURONTIN) 100 mg capsule Take 1 capsule by mouth at bedtime. 60 capsule 08/11/2022 2 documented in this encounter Progress Notes * Emigdio Veronica MD - 08/11/2022 0930 EDT Tara Yun is a 62 y.o. female with a PMHx of NAFLD, COPD, chronic pain syndrome, HUEY PRIMARY CARE PROVIDER: Emigdio Veronica CHIEF COMPLAINT: Chief Complaint Patient presents with ??? Follow-up ED and hospital addmission SUBJECTIVE: Tara Yun presents today for a follow-up visit. She reports ongoing severe symptoms of fatigue, lower extremity edema and ascites and chronic pain with a primary focus in her lower back. In regards to her fatigue she continues to note a combination of poor sleep and difficulty initiating sleep. She has diagnosed severe HUEY that is currently untreated. She is unable to obtain a new PAP device without a polysomnogram and this is currently scheduled for 09/07/22. She reports that she also has longstanding insomnia with difficulty starting sleep. She has noted poor response to previous sleep aids including hypnotics and TCAs. She cites her worsening lower back pain at night as her primary barrier to falling asleep currently. She states that she has had several episodes of falls related to her fatigue. She also notes recurrent and transient episodes of confusion without other neurological changes. She denies any serious injuries to date. In terms of her chronic pain she notes inadequate control on her current regiment of oxycodone 5 mgTID PRN and lidocaine 4% patches. She has been advised against using acetaminophen due to her history of thrombocytopenia and liver disease by her cash accounting clerk and has been advised against NSAIDs given her history of CKD. She notes intolerance to lyrica in the past and notes that while she had tolerated gabapentin previously she did not find it effective for her pain alone. She was referred to the comprehensive pain clinic by this provider last year, but ultimately did not complete her intake paperwork to establish care there. She notes that in relation to her ascites and edema she has noticed a steady decline in her weight by eight pounds since her last encounter. She is trying to adhere to a salt restricted diet and notes compliance with her diuretic regiment of spirolactone 100 mg daily and lasix 40 mg daily. Her lastBMP reflected stable GFR at 64. She denies any acute changes in her breathing. ROS as above Medications and history reviewed. Current Outpatient Medications Medication ??? albuterol 90 mcg/actuation inhaler ??? chlorzoxazone (PARAFON FORTE) 500 mg tablet ??? diclofenac sodium gel ??? furosemide (LASIX) 20 mg tablet ??? furosemide (LASIX) 20 mg tablet ??? gabapentin (NEURONTIN) 100 mg capsule ??? INCRUSE ELLIPTA 62.5 mcg/actuation ??? ketotifen (ZADITOR) 0.025 % (0.035 %) ophthalmic solution ??? levothyroxine (SYNTHROID) 25 mcg tablet ??? lidocaine 4 % patch ??? naloxone (NARCAN) 4 mg/actuation nasal spray ??? ondansetron (ZOFRAN) 4 mg tablet ??? ondansetron (ZOFRAN-ODT) 4 mg disintegrating tablet ??? oxyCODONE (ROXICODONE) 5 mg immediate release tablet ??? oxyCODONE (ROXICODONE) 5 mg immediate release tablet ??? OXYGEN-AIR DELIVERY SYSTEMS MISC ??? pantoprazole (PROTONIX) 40 mg tablet ??? sertraline (ZOLOFT) 50 mg tablet ??? spironolactone (ALDACTONE) 50 mg tablet ??? sucralfate (CARAFATE) 1 gram tablet ??? traZODone (DESYREL) 100 mg tablet No current facility-administered medications for this visit. Facility-Administered Medications Ordered in Other Visits Medication Route Frequency ??? albuterol (ACCUNEB) 2.5 mg /3 mL (0.083 %) nebulizer solution OBJECTIVE: BP 110/53 (BP Cuff Location: Left arm, BP Patient Position: Sitting, BP Cuff Sizes: Adult, long) Pulse 85 Comment: r Temp 35.6 ??C (96.1 ??F) (Tympanic) Resp 16 Wt (!) 111.1 kg (245 lb) BMI42.05 kg/m?? Gen: Fatigued and chronically ill appearing morbidly obese female, NAD HEENT: EOMI, PERRL, conjunctiva pink, no scleral injection/ icterus CV: RRR, no murmurs, rubs or gallops Pulm: CTAB, no wheezes, rales, or rhonchi Extrem: +1 pitting lower extremity edema to bilateral knees, warm and well perfused Skin: No rashes or erythema, intact Neuro: A&Ox3, CN II through XII grossly intact Recent Labs/Imaging: Reviewed in Epic ASSESSMENT and PLAN: Tara was seen today for follow-up. Diagnoses and all orders for this visit: HUEY (obstructive sleep apnea), Other insomnia: Suspect primary etiology of fatigue, episodic confusion and falls is secondary to poor sleep due to a combination of untreated HUEY and chronic insomnia. - Heavily encouraged compliance with obtaining sleep study this coming month - Encouraged good sleep hygiene techniques in terms of chronic insomnia - Will obtain ammonia and CMP prior to next encounter to rule out presence of worsening liver dysfunction for symptoms of confusion Chronic pain syndrome: Will pursue a strategy of rational polypharmacy. Discussed that the risks greatly outweigh the benefits with increasing her current opiate therapy given her concurrent liver and kidney disease. However can pursue a restart of gabapentin with her current dosage of oxycodone tosee if this dual approach provides better pain relief. - Will restart gabapentin at 100 mg at bedtime. Will have patient follow-up with the clinic via phone message in 1-2 weeks to assess tolerance and efficacy. Could consider dose increase to 200 mg at bedtime at that time. - Will refer back to comprehensive pain clinic for systematic review of pain reliving options givenpatient's complex history Chronic kidney disease, unspecified CKD stage - COMPREHENSIVE METABOLIC PANEL (CMP); Future Other hypervolemia: Stable with decreasing weights on current diuretic regiment. Patient continues to note high burden of discomfort wit hher current combination of ascites and edema. - Will repeat BMP at next encounter. Could consider incremental dose increase on spirolactone if renal function remains stable - Encouraged daily weights Healthcare maintenance Health Maintenance Topic Date Due [...] ??? Breast Cancer Screening Never done ??? Shingles Immunization (2 of 2) 10/29/2019 ??? Pill Count Never done ??? COVID-19 Vaccine (5 - Booster for Pfizer series) 07/15/2022 ??? Urine Drug Screen 04/29/2022 ??? Influenza Immunization (Adult) (1) 08/21/2022 ??? [place] Prescription Monitoring System 10/08/2022 ??? Behavioral Health Screen 06/09/2023 ??? Opioid Prescription Agreement 06/25/2023 ??? Opioid Informed Consent 08/11/2023 ??? Review Of Systems Adverse Effects 08/11/2023 ??? Functional Assessment 08/11/2023 ??? Current Opioid Misuse Measurement 08/11/2023 ??? Pneumococcal Immunization (4 - PPSV23 or PCV20) 2025 ??? Lipid Profile Screening (Cholesterol) 04/16/2027 ??? Tetanus (Adult) Immunization 03/17/2029 ??? HIV Screening Completed ??? Hepatitis C Screen Completed ??? Pertussis (Adult) Immunization Discontinued F/u: Return in about 1 month (around 09/10/2022) for f30, Chronic pain. I spent a total of 35minutes with this patient today face to face, in chart review and in documentation and 30 minutes of that time was spent on education and counseling for chronic pain, CKD, hypervolemia, HUEY. Some of this note was transcribed with [employer] dictating software. While it was proofread, it may still contain unnoticed grammatical or word errors due to incorrect transcribing. Emigdio Veronica MD 08/13/2022 9:52 documented in this encounter Plan of Treatment Upcoming Encounters Date Type Department Care Team (Late st Contact Info) Description 01/04/2025 13:00 EST Office Visit [facility] - [address] [phone] Gagandeep Rome MD [address] [place] [address], [facility] [address] [place] [phone] 02/11/2025 13:30 EDT Telemedicine [facility] Hematology & Oncology - [address] [phone] Dana Padilla MD 111 [facility], [facility] 2 [place] [address] documented as of this encounter Results * (ABNORMAL) AMMONIA (09/01/2022 9:41 EDT) Ammonia 65(H) <34 umol/L 09/01/2022 11:08 EDT [facility] Blood VENOUS BLOOD / Unknown Venipuncture / Unknown 09/01/2022 9:41 EDT 09/01/2022 9:43 EDT us Emigdio Veronica MD CHEMISTRY & BLOOD GAS OR DERABLES Final Result [facility] [address] [place] [address] * (ABNORMAL) COMPREHENSIVE METABOLIC PANEL (CMP) (09/01/2022 9:41 EDT) Sodium 141 136 - 145 mmol/L 09/01/2022 11:04 [facility] Potassium 4.1 3.5 - 5.0 mmol/L 09/01/2022 11:04 [facility] Chloride 99 96 - 110 mmol/L 09/01/2022 11:04 [facility] CO2 Total 29 22 - 32 mmol/L 09/01/2022 11:04 [facility] Glucose 184(H) 70 - 100 mg/dL 09/01/2022 11:04 [facility] BUN 17 10 - 26 mg/dL 09/01/2022 11:04 [facility] Creatinine 1.32(H) 0.52 - 1.04 mg/dL 09/01/2022 11:04 [facility] eGFR 46(L) >60 mL/min/1.7 3m2 09/01/2022 11:04 [facility] Total Protein 6.6 6.3 - 8.2 g/dL 09/01/2022 11:04 [facility] Albumin 3.6 3.4 - 4.9 g/dL 09/01/2022 11:04 [facility] Alkaline Phosphatase 107 38 - 126 U/L 09/01/2022 11:04 [facility] AST 27 15 - 46 U/L 09/01/2022 11:04 [facility] ALT 16 <35 U/L 09/01/2022 11:04 [facility] Bilirubin, Total 0.7 <1.4 mg/dL 09/01/20 11:04 [facility] Calcium 8.8 8.5 - 10.5 mg/dL 09/01/2022 11:04 [facility] Albumin/Globulin Ratio 1.2 1.0 - 2.5 09/01/2022 11:04 [facility] Anion Gap 13 5 - 14 09/01/2022 11:04 [facility] Blood VENOUS BLOOD / Unknown Venipuncture / Unknown 09/01/2022 9:41 EDT 09/01/2022 9:43 EDT us Emigdio Veronica MD CHEMISTRY & BLOOD GAS OR DERABLES Final Result [facility] [address] [place] [address] documented in this encounter Visit Diagnoses Diagnosis HUEY (obstructive sleep apnea)- Primary Obstructive sleep apnea (adult) (pediatric) Other insomnia Chronic pain syndrome Chronic kidney disease, unspecified CKD stage Confusion Unspecified psychosis Other hypervolemia Healthcare maintenance Routine general medical examination at a health care facility documented in this encounter Care Teams Electrical Electronics Engineer Relationship Specialty Start Date End Date Emigdio Veronica MD [address] [place] [phone] PCP - General Internal Medicine - Primary Care 05/22/20 02/21/24 documented as of this encounter
--- OUTSIDE RECORDS SUMMARY | 2024-11-22 17:01 | XMS_ITS | Encounter Summary ---
Author Organization [facility] Address [address] [place] [address] Care Team Providers Care Founder And Chief Executive Officer Name Role Phone Emigdio Veronica MD Primary Care Provider + Reason for Visit * Reason Comments Split Night Polysomnogram * Sleep Study (Routine/Next Available) - Closed Specialty Diagnoses / Procedures Referred By Contkanchan t Referred To Contact Sleep Medicine Diagnoses Nocturnal hypoxia HUEY (obstructive sleep apnea) Procedures SPLIT NIGHT POLYSOMNOGRAM (DIAGNOSTIC POLYSOMNOGRAM WITH SPLIT TO CPAP/BIPAP TITRATION) Vivian Black MD Phone: tel: fax: [facility] - [address] [address] Phone: tel: fax: Referral ID Status Reason Start Date Expiration Date Visits Re quested Visits Authorized [id number] Closed 03/31/2022 11/20/2022 1 1 Encounter Details Date Type Department Care Team (Late st Contact Info) Description 09/07/2022 20:00 EDT Office Visit [facility] - [address] [phone] Polysomnogram, [place] Inn Obstructive sleep apnea; Nocturnal hypoxemia Social History Tobacco Use Types Packs/Day Years [...] 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 Answer Date of Assessment Author No 06/16/2022 0:00 EDT oSila Murphy RN * Are you blind or do you have serious difficulty seeing, even when wearing glasses? Answer Date of Assessment Author No 06/16/2022 0:00 EDT Soial Murphy RN * Do you have serious [...] Progress Notes * Vivian Black MD - 09/07/20221999 EDT Split Night Polysomnogram on 09/07/2022 Split criteria was not met SUMMARY This was an attended diagnostic polysomnography done in the sleep lab Sleep architecture and sleep continuity Time of lights off was 9: 52; sleep onset latency was 71 min which is prolonged. REM sleep latency was 173 min, which is prolonged. Patient slept total of 408 minutes out of 489 minutes in bed with moderately decreased sleep efficiency of 83%. Patient slept supine entire night. Normal amout of N1 sleep at 1% was noted. Decreased amount of REM sleep at 11% and normal amount ofN3 sleep for this patient's age group at 1% was captured. Respiration during sleep Total of 10 obstructive apneas 0 mixed and 3 central apneas were noted and were associated with 61 hypopneas causing 4% O2 desaturations and 81 hypopneas causing 3% O2 saturations. This resulted in AHI of 22.8 (10.9 per AASM 2007 criteria) and lowest O2 saturation of 71%. Respiratory events were more prominent during REM supine AHI of 36.1. Sleep-related hypoxia was observed with total of 22.1 minutes of SPO2 below 88% TcCO2 monitoring was performed: During initial supine wakefulness TC CO2 was measured at 40 mmHg. during study TC CO2 measurements did not exceed 50 mmHg, thus criteria for sleep-related hypoventilation was not met. (Sleep hypoventilation in adults is scored when arterial PCO2 or surrogate is > 55 mmHg for minimum of 10 minutes, or there is an increase in the arterial PCO2 or surrogate by at least 10 mmHg in comparison to awake supine value to value exceeding 50 mmHg for min 10 minutes.) EMG Periodic leg movement index was 15/h, with PLMS with arousal index of 0/h which is normal. Only legmovements preceded by respiratory events were part of the arousal complexes observed. EEG On this limited montage no epileptiform activity was noted EKG On single EKG lead no significant arrhythmias were observed; average heart rate was 80. IMPRESSION -Moderate obstructive sleep apnea associated with AHI of 22.8 (10.9 per AASM 2007 criteria) and lowest O2 saturation of 71% -Associated nocturnal hypoxia with 22.1 minutes of sleep spent at O2 saturation of less than 88%. RECOMMENDATIONS: - Based on the clinical information provided and the results of this study, PAP therapy is recommended for treatment of obstructive sleep apnea. - Follow-up PAP titration study will be ordered today Secondline treatment options if clinically appropriate include: mandibular advancement device (oralappliance), upper airway surgery, positional therapy. Portions of this document may contain text elements generated through computerized voice recognition technology. Undetected computer-generated word errors are possible. Please notify the signing provider if clarification or correction is needed. Vivian Black [facility] Department of Neurology Sleep Program This Sleep Study Report (including details) can be viewed under the Procedures Tab in the EMR ([employer]) as a scanned file attachment. If the Sleep Study Report cannot be accessed, a copy can be obtainedby contacting [facility] at [phone]. documented in this encounter Plan of Treatment Upcoming Encounters Date Type Department Care Team (Late st Contact Info) Description 01/04/2025 13:00 EST Office Visit [facility] Ophthalmology - [address] [phone] Gagandeep Rome MD 111 [facility], Level [address] [place] [phone] 02/11/2025 13:30 EDT Telemedicine [facility] Hematology & Oncology - [facility] [address] [place] [address] Dana Padilla MD 111 [facility], [facility] [address] [place] [phone] documented as of this encounter Procedures Procedure Name Priority Date/Time Associated Diagnosis Comments SLEEP STUDY REPORT - SCANNED 09/08/2022 14:39 EDT SLEEP STUDY REPORT - SCANNED 09/08/2022 14:35 EDT documented in this encounter Results * SLEEP STUDY REPORT - SCANNED (09/08/2022 14:39 EDT) 09/08/2022 14:3 9 EDT us Scan 2 Intake Specialist PROCEDURE/MINOR SURGICAL OR DERABLES Final Result * SLEEP STUDY REPORT - SCANNED (09/08/2022 14:35 EDT) 09/08/2022 14:3 5 EDT us Scan 2 Intake Specialist PROCEDURE/MINOR SURGICAL OR DERABLES Final Result documented in this encounter Visit Diagnoses Diagnosis Obstructive sleep apnea Obstructive sleep apnea (adult) (pediatric) Nocturnal hypoxemia Hypoxemia documented in this encounter Care Teams Founder And Chief Executive Officer Relationship Specialty Start Date End Date Emigdio Veronica MD [address] [place] [phone] PCP - General Internal Medicine - Primary Care 05/22/20 02/21/24 documented as of this encounter
--- OUTSIDE RECORDS SUMMARY | 2024-11-22 17:02 | XMS_ITS | Encounter Summary ---
Author Organization [facility] Address [address] [place] [address] Care Team Providers Care Talent Acquisition Specialist Name Role Phone Emigdio Veronica MD Primary Care Provider + Reason for Visit * Reason Onset Date Comments Appointment Related 06/30/2022 Encounter Details Date Type Department Care Team (Late st Contact Info) Description 06/30/2022 Telephone [facility] Hematology & Oncology - [facility] [address] [place] [address] Dana Padilla MD 111 [facility], [facility] 2 [place] [address] Appointment Related Social History Tobacco [...] 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 No / Unsure 06/15/2022 17:19 EDT documented as of this encounter Functional [...] * Telephone Encounter - Juliet Livingston - 06/30/2022 1041 EDT Spoke to Susaniss. Rescheduled her appt in Aug to 09/20 at 4pm. She acknowledged. documented in this encounter Plan of Treatment Upcoming Encounters Date Type Department Care Team (Late st Contact Info) Description 01/04/2025 13:00 EST Office Visit [facility] Ophthalmology - [address] [phone] Gagandeep Rome MD [address] [place] [address], [facility] 5 [place] [phone] 02/11/2025 13:30 EDT Telemedicine [facility] Hematology & Oncology - [address] [phone] Dana Padilla MD [address] [place] [address], [facility] [address] [place] [phone] documented as of this encounter Visit Diagnoses Not on filedocumented in this encounter Care Teams Talent Acquisition Specialist Relationship Specialty Start Date End Date Emigdio Veronica MD [address] [place] [phone] PCP - General Internal Medicine - Primary Care 05/22/20 02/21/24 documented as of this encounter
--- OUTSIDE RECORDS SUMMARY | 2024-11-22 17:02 | XMS_ITS | Encounter Summary ---
Author Organization [facility] Address [address] [place] [address] Care Team Providers Care Admitted Attorneys Name Role Phone Emigdio Veronica MD Primary Care Provider + Encounter Details Date Type Department Care Team (Late st Contact Info) Description 06/25/2022 8:[address] 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 Ophthalmology - [address] [phone] Gagandeep Rome MD [address] [place] [address] 5 [place] [address] 02/11/2025 13:30 EDT Telemedicine [facility] [address] [phone] Dana Padilla MD [address] [place] [address] 2 [place] [address] documented as of this encounter Procedures Procedure Name Priority Date/Time Associated Diagnosis Comments COMPLETE BLOOD COUNT Routine 06/25/2022 8:12 EDT Portal vein thrombosis Upper GI bleed BASIC METABOLIC PANEL (BMP) Routine 06/25/2022 8:12 EDT Bilateral lower extremity edema documented in this encounter Results * (ABNORMAL) BASIC METABOLIC PANEL (BMP) (06/25/2022 8:12 EDT) Sodium 140 136 - 145 mmol/L 06/25/2022 10:07 EDT [facility] Potassium 4.1 3.5 - 5.0 mmol/L 06/25/2022 10:07 EDT [facility] Chloride 98 96 - 110 mmol/L 06/25/2022 10:07 EDT [facility] CO2 Total 31 22 - 32 mmol/L 06/25/2022 10:07 EDT [facility] Anion Gap 11 5 - 14 06/25/2022 10:07 [facility] Glucose 96 70 - 100 mg/dL 06/25/2022 10:07 [facility] Calcium 8.2(L) 8.5 - 10.5 mg/dL 06/25/2022 10:07 [facility] BUN 13 10 - 26 mg/dL 06/25/2022 10:07 [facility] Creatinine 1.06(H) 0.52 - 1.04 mg/dL 06/25/2022 10:07 [facility] eGFR 60(L) >60 mL/min/1.73 m2 06/25/2022 10:07 [facility] Blood VENOUS BLOOD / Unknown Venipuncture / Unknown 06/25/2022 8:12 EDT 06/25/2022 8:12 EDT Nguyen Nolasco NP CHEMISTRY & BLOOD GAS ORDERAB LES Final Result [facility] [address] [place] [address] * (ABNORMAL) COMPLETE BLOOD COUNT (06/25/2022 8:12 EDT) WBC 3.20(L) 4.00 - 12.40 K/cmm 06/25/2022 9:23 [facility] RBC 3.79(L) 3.86 - 5.04 M/cmm 06/25/2022 9:23 [facility] Hemoglobin 10.7(L) 11.6 - 15.2 gm/dL 06/25/2022 9:23 [facility] HCT 33.3(L) 34.9 - 44.4 % 06/25/2022 9:23 [facility] MCV 88 81 - 98 fl 06/25/2022 9:23 [facility] MCH 28.2 26.7 - 33.3 pg 06/25/2022 9:23 [facility] MCHC 32.1 32.1 - 35.9 gm/dL 06/25/2022 9:23 EDT [facility] RDW-CV 14.8(H) <14.7 % 06/25/2022 9:23 EDT [facility] RDW-SD 47.7 <50.4 fl 06/25/2022 9:23 EDT [facility] PLT 97(L) 141 - 377 K/cmm 06/25/2022 9:23 EDT [facility] MPV 9.8 9.5 - 12.7 fl 06/25/2022 9:23 EDT [facility] Blood VENOUS BLOOD / Unknown Venipuncture / Unknown 06/25/2022 8:12 EDT 06/25/2022 8:12 EDT us Dana Padilla MD HEMATOLOGY & PF4 ORDERABLES Pricila l Result [facility] [address] [place] [address] documented in this encounter Visit Diagnoses Diagnosis Portal vein thrombosis Upper GI bleed Hemorrhage of gastrointestinal tract, unspecified Bilateral lower extremity edema Edema Acute on chronic congestive heart failure, unspecified heart failure type ([facility]) documented in this encounter Care Teams Admitted Attorneys Relationship Specialty Start Date End Date Emigdio Veronica MD [address] [place] [address] PCP - General Internal Medicine - Primary Care 05/22/20 02/21/24 documented as of this encounter
--- OUTSIDE RECORDS SUMMARY | 2024-11-22 17:02 | XMS_ITS | Encounter Summary ---
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 Not [...] Info) Description 01/04/2025 13:00 EST Office Visit [facility] Ophthalmology - [address] [phone] Gagandeep Rome MD [address] [place] [address] [address] [place] [address] 02/11/2025 13:30 EDT Telemedicine [facility] Hematology & Oncology - [address] [phone] Dana Padilla MD [address] [place] [address] [address] [place] [address] documented as of this encounter Visit Diagnoses Not on filedocumented in this encounter Care Teams Waffle Machine Operator Relationship Specialty Start Date End Date Emigdio Veronica MD [address] [place] [phone] PCP - General Internal Medicine - Primary Care 05/22/20 02/21/24 documented as of this encounter
--- OUTSIDE RECORDS SUMMARY | 2024-11-22 17:02 | XMS_ITS | Encounter Summary ---
Author Organization [facility] Address [address] [place] [address] Care Team Providers Care Private Watchman Name Role Phone Emigdio Veronica MD Primary Care Provider + Reason for Referral * Cardiology (Routine/Next Available) - Closed Specialty Diagnoses / Procedures Referred By Contac t Referred To Contact Nuclear Medicine Diagnoses Shortness of breath Procedures NM CARD PET NUCLEAR STRESS Dolly Branch, HARSH Phone: tel: fax: [facility] Referral ID Status Reason Start Date Expiration Date Visits Re quested Visits Authorized [id number] Closed 06/30/2022 11/20/2022 1 1 Reason for Visit * Reason Comments Cardiac Post Hospitalization Follow Up a cute on chronic congestive heart failure, unspecified heart failure type * Consult (See Order Priority) - Order Cancelled Specialty Diagnoses / Procedures Referred By Contac t Referred To Contact Cardiology Diagnoses Acute on chronic congestive heart failure, unspecified heart failure type ([facility]) Sabina Welch MD [address] [place] [address] Phone: tel: fax: [facility] [place] [address] [place] [address] Phone: tel: fax: Referral ID Status Reason Start Date Expiration Date Visits Requested Visits Authorized [id number] Order Cancelled Specialty Services Required 06/18/2022 1 1 Encounter Details Date Type Department Care Team (Late st Contact Info) Description 06/30/2022 9:00 EDT Office Visit [facility] - [address] [place], [place] [phone] Dolly Branch, HARSH [address] [facility], [address] [address] Shortness of breath (Primary Dx) Social History Tobacco Use Types [...] 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 No / Unsure 06/15/2022 17:19 EDT documented as of this encounter Last Filed Vital Signs Vital Sign Reading Time Taken Comments Blood Pressure 112/80 06/30/2022 0903 EDT Pulse 80 06/30/2022 0903 EDT Temperature - - Respiratory Rate - - Oxygen Saturation 96% 06/30/2022 0903 EDT Inhaled Oxygen Concentration - - Weight 110.2 kg (243 lb) 06/30/2022 0903 EDT Height - - Body Mass Index 41.71 06/15/2022 1718 EDT documented in this encounter Functional Status [...] 06/16/2022 0:00 DAVIDT Soila Murphy RN documented as of this encounter Mental Status * Because of a physical, mental, or emotional condition, do you have serious difficulty concentrating, remembering, or making decisions? (5 years old or older) Answer Entry Date Author No 06/16/2022 0:00 EDT Soila Murphy RN documented in this encounter Progress Notes * Dolly Branch NP - 06/30/2022 0900 EDT Ms.Phyliss Doug Yun is here for a post hospital follow up visit in the heart failure clinic with chief complaint of ROBB. 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 January 2022 hospitalization with LUQ pain related portal vein thrombosis. April 2022 hospitalization for SOB and anasarca, unclear etiology. Multiple ED forSOB. Hospitalized -06/18 with acute on chronic hypoxic Resp Failure related to COPD exacerbation. Presented with SOB and wt gain. Treated with steroids and antibiotics and diuresed. Normal NT proBNP. Echo 05/10/2022 shows normal LVEF, no evidence of diastolic dysfunction, normal RV, normal atria, novalve disease, normal IVC. Functional class III Plan: 1. Symptoms - ROBB and wt gain not related to HF. No objective evidence of HF diagnosis - NT proBNP normal and normal echo. Symptoms likely related to COPD and resp failure and severe HUEY not treated and liver disease/thrombosis. However, her symptoms could be related to angina equivalent. 2. Medications -no changes in meds, ok BP and HR control. BUT will order a nuc stress to r/o ischemic disease given her multiple risk factors. 3. Fluid Management - significant lower leg (ansaraca, firm nonpitting) and gut edema, etiology nother heart but lungs and liver disease. 4. Fluid Management - Reviewed Self Management Skills including: Low Na diet, fluid recommendations, activity progression, medications and importance their compliance, daily wts, and symptoms to monitor and when to call their provider. Patient recited these instructions back to me when asked. Wilian Xavier reviewed this assessment and treatment plan and is in agreement and was on site and available during this encounter. 5. Activity/Risk factor modification - smoking 1-2 cigs a day but exposed to significant roommate smoking. Discussed importance of smoking cessation but she needs the cigarettes for anxiety support. Discussed wt loss and her desire to do, discussed strategies. Agrees to do nuc stress. 6. HUEY - encouraged her to keep her sleep study appt. 7. Follow up - 1 month after nuc stress Thank you very much for allowing us to be involved with Ms.Phyliss Doug Yun's care. Dolly Branch NP Subjective: Wt 243 lbs and stable since d/c. Reports 60lb wt gain since Nov. 0-2 cigs a day long time smoker for many years Wears O2 during the day now because it helps her breathing. Never been to a lung specialist ROBB with gardening. Some days better than others this is somewhat new Bending over causes dizziness. Has passed out in the past, 3 times this year from low BP Has occ chest discomfort not associated with any pattern or activity. Swelling legs about the same Patient did not report chest pain, pressure, recent presyncope or syncope, PND, orthopnea, cough, change in mentation, change in appetite. Psychosocial - Lives in an apartment with 2 other roommates who smoke. Has a son and 2 daughters one lives in [place] otherwise all in [place]; 12 grand children and 2 great grandchildren. Her boyfriend Remberto lives in [place] and he has his own health issues but does not smoke. Spends her free time doing a 2 Minutes and visiting family. Long time smoker. Objective: Outpatient Encounter Medications as of 06/30/2022 Medication Sig Dispense Refill ??? albuterol 90 [...] daily as needed for Pain (Knee pain). (Patient not taking: Reported on 06/30/2022) 50 g 1 ??? furosemide (LASIX) 20 mg tablet Take 2 Tablets by mouth daily. Until seen by PCP. 120 Tablet 0 ??? INCRUSE ELLIPTA 62.5 mcg/actuation INHALE 1 PUFF BY MOUTH DIRECTED DAILY 30 Each 0 ??? levothyroxine (SYNTHROID) 25 mcg tablet Take 1 Tablet by mouth daily before breakfast. 90 Tablet 1 ??? lidocaine 4 % patch Apply to back once daily as needed for pain. Remove after 12 hours of use. (Patient not taking: Reported on 06/30/2022) 30 Patch 1 ??? naloxone (NARCAN) 4 mg/actuation nasal spray 0.1 mL by nasal route as needed for Opioid Reversal. Repeat every 2-3 minutes if not effective and overdose is suspected. (spray is harmless in excess). 1 Each 1 ??? olopatadine (PATADAY) 0.2 % ophthalmic solution Place 1 Drop into both eyes daily as needed forAllergies. 5 mL 2 ??? ondansetron (ZOFRAN) 4 mg tablet Take 1 Tablet by mouth every 8 hours as needed for Nausea. 30 Tablet 1 ??? [START ON 07/07/2022] oxyCODONE (ROXICODONE) 5 mg immediate release tablet Take 1 Tablet by mouth 3 times daily as needed for up to 28 days for Pain. Daily Max: 15 mg 84 Tablet 0 ??? oxyCODONE (ROXICODONE) 5 mg immediate release tablet Take 1 Tablet by mouth every 8 hours as needed for Pain. Daily Max: 15 mg (Patient not taking: Reported on 06/30/2022) 2 Tablet 0 ??? OXYGEN-AIR DELIVERY SYSTEMS MISC 2 L by misc (non-drug; combo route) route at bedtime. ??? pantoprazole (PROTONIX) 40 mg tablet Take 1 Tablet by mouth 2 times daily. 180 Tablet 3 ??? sertraline (ZOLOFT) 50 mg tablet Take 50 mg by mouth daily. ??? spironolactone (ALDACTONE) 50 mg tablet Take 1 Tablet by mouth daily. (Patient taking differently: Take 100 mg by mouth daily. ) 90 Tablet 1 ??? sucralfate (CARAFATE) 1 gram tablet TAKE 1 TABLET BY MOUTH FOUR TIMES A DAY 120 Tablet 3 ??? traZODone (DESYREL) 100 mg tablet Take 2 Tablets by mouth at bedtime. 180 Tablet 0 Facility-Administered Encounter Medications as of 06/30/2022 Medication Dose Route Frequency Provider Last Rate Last Admin ??? albuterol (ACCUNEB) 2.5 mg /3 mL (0.083 %) nebulizer solution Taking medications as prescribed without difficulty. No barriers to compliance. BP 112/80 (BP Cuff Location: Left arm, BP Patient Position: Sitting, BP Cuff Sizes: Adult, large) Pulse 80 Wt (!) 110.2 kg (243 lb) SpO2 96% BMI 41.71 kg/m?? Body mass index is 41.71 kg/m??. Physical Exam Here alone General: Alert and oriented x 3, cooperative, no distress, appears stated age. fair recall Eyes: Conjunctivae not injected, not pale, nonicteric. Ears: Hearing grossly intact. Neck: Carotid upstroke normal, no carotid bruit and Jugular Venous Pressure not able to tell with thick neck and inability to lay down very long related to pain. Lungs: No crackles but very poor airation and exp wheeze throughout Chest wall: No tenderness or deformity. Heart: Regular heart sounds, S1, S2 normal, no murmur or rub heard. Normal apical impulse. Abdomen: Soft, very large, tender to palpation. + hepatomegaly could not determine if hepatojugularreflux. Extremities: trace pitting, very firm lower leg peripheral edema. No cyanosis. Hands warm. Pulses: Radial pulses 2+ bilaterally. Tibialis posterior 2+ bilaterally. Skin: No pallor, rashes or lesions. Neurologic: Normal strength, nonfocal on exam. Recent Labs: Lab Results Component Value Date NA 140 06/25/2022 K 4.1 06/25/2022 CL 98 06/25/2022 CO2 31 06/25/2022 BUN 13 06/25/2022 CREATININE 1.06 (H) 06/25/2022 CALCIUM 8.2 (L) 06/25/2022 This is a shared note. I support your right to access your health information in an open, easy manner. We are partners together to improve your health. If you are a patient or caregiver with concernsabout this note, please contact us by one of the following ways: 1. Send a Amiato message to me and our team 2. Call us during business hours at [phone] 3. Talk to us/me at your next visit I spent a total of 60 minutes on the date of this encounter meeting with the patient and reviewing documentation/coordinating care as described in the above note. No procedures were performed at the time of the visit. documented in this encounter Plan of Treatment Upcoming Encounters Date Type Department Care Team (Late st Contact Info) Description 01/04/2025 13:00 EST Office Visit [facility] - [address] [phone] Gagandeep Rome MD [address] [facility] [place], [address] [place] [address] 02/11/2025 13:30 EDT Telemedicine [facility] Hematology & Oncology [address] [address] Dana Padilla MD 111 [facility] 2 [place] [address] documented as of this encounter Results * NM CARD PET PHARM MULT STUDIES CMP W/AQMBF AND CALCIUM SCORING (07/30/2022 10:26 EDT) Target HR 158 bpm MCKESSON N MIS MERGE CARDIO Peak HR 86 bpm MCKESSON N MIS MERGE CARDIO Percent HR 54 MCKESSON NMIS MERGE CARDIO Baseline Systolic BP 112 mmHg MCKESSON NMIS MERGE CARDIO Systolic BP 86 mmHg MCKESSON NMIS MERGE CARDIO Recovery BP 100 mmHg MCKESSON NMIS MERGE CARDIO Pre test likelihood of obstructive CAD 14 MCKESSON NMI S MERGE CARDIO LAD Flow Number 1.69 MCKE SSON NMIS MERGE CARDIO LCX Myocardial Flow Number 1.45 MCKESSON NMIS MERGE CARDIO RCA Number 1.79 MCKESSON NMIS MERGE CARDIO Overall Number 1.65 MCKES SON NMIS MERGE CARDIO Nuc Stress EF 75 % MCKESS ON NMIS MERGE CARDIO CALALM 0.00 MCKESSON [...] There was no coronary calcification. Myocardial Flow [place] The myocardial flow reserve was 1.69 for [...] 0 Percentage Abnormal: 0.00% us Dolly Branch COLLEGE ADMINISTRATOR CARDIAC NM ORDERABLES Final Res ult documented in this encounter Visit Diagnoses Diagnosis Shortness of breath- Primary Shortness of breath Portal vein thrombosis Upper GI bleed Hemorrhage of gastrointestinal tract, unspecified documented in this encounter Care Teams Private Watchman Relationship Specialty Start Date End Date Emigdio Veronica MD [address] [place] [phone] PCP - General Internal Medicine - Primary Care 05/22/20 02/21/24 documented as of this encounter
--- OUTSIDE RECORDS SUMMARY | 2024-11-22 17:02 | XMS_ITS | Encounter Summary ---
Author Organization 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 Janeth Burns Katrina; Emigdio Veronica MD To answer questions of this patient are as followed. Patient doesn't need to sign anything before her sleep study but the day of she needs to sign consent that she is aware of the cpap recall. ??Whenwe initially schedule patient's ??that may or will need to use our cpap machines we let them know about the recall. ??This was document in her chart 04/08 when we originally scheduled her. ??We have tried to contact her several times when we have cancellations and she declines. We did let her know she is going to the [facility]. Any further questions please reach out to us. Rerouting to Scottie as he had the questions below. * Telephone Encounter - Ebony Toscano - 07/23/2022 1411 EDT I called the sleep center & spoke nurys/Janeth. We decided the easiest thing to do would be to route this message to their pool so they can addressDavid's messages directly. * Telephone Encounter - Scottie Campuzano PA-C - 07/19/2022 1014 EDT Ebony, could you or other PSS please call the Sleep center to ask what it means that the patientneeds to consented to continue with the sleep study? (see message below). 1. Is there 'consent' paperwork that she did not sign and return? 2. If there is missing paperwork for 'consent', what is the plan to get the consent if it is necessary to sign it BEFORE the day/night of the sleep test? Has anyone called Tara to tell her aboutthe need to 'Consent, and how she goes about doing that? 3. Is that the reason that her July appointment was cancelled, and rescheduled for August? Missing consent? 4. Does the patient know that her July sleep test was cancelled and re-scheduled? 5. Does she know that her sleep test is at the [facility] in [place], NOT at the hospital? Please coordinate with the sleep center to make sure that this very important sleep test is properly scheduled, consented and that the patient knows the date, time, and location of the test. Then, please message me and Dr Veronica back so we know that everything is all set Thank you!! Scottie * Telephone Encounter - Scottie Campuzano PA-C - 07/19/2022 1013 EDT Images from the original note were not included. (copied from Staff message to note to preserve in the medical record) Marian Santiago David, PA-C; Emigdio Veronica MD Me. The patient was giving all the information including location when she set up the sleep study. We do not schedule without talking with the patient and they are emailed or mailed a packet of information regarding the sleep study. ??Especially since we are using the [employer] recalled cpap machines at the [facility]. ??The patient needs to consented to continue with the sleep study. Gina * Telephone Encounter - Scottie Campuzano PA-C - 07/19/2022 0937 EDT Avtar Fonseca, Thanks for getting back to me! Please clarify if you have called the patient about the location of her sleep test. She told me last week that she thinks her sleep test is at [facility], not at the 'hotel'. (see message below). I personally understand that the sleep study is at the hot, but my concern is that the patient does NOT know, and may go to the wrong location for her test. Please message me back after you speak with her about the sleep test. Thanks in advance for your help!! Scottie * Telephone Encounter - Scottie Campuzano PA-C - 07/19/2022 0936 EDT Images from the original note were not included. Marian Santiago David, PA-C Good Morning. The patient is scheduled for a sleep study on: 09.07.22 @ 8:00 pm [facility] Thank you. Gina Santiago Patient [facility] [address] [place] [address] 2, Room [address] [place], [place] ??[phone] (P) [phone] (F) * Telephone Encounter - Scottie Campuzano PA-C - 07/18/2022 1359 EDT I saw this patient last week at the office in [place]. At her appointment, she told me that she is having her sleep study done in the hospital, and not at the sleep clinic at the hot. I am not sure how she got this idea. At the time of her visit, I did not look at the details of herscheduled sleep study, and so I did not correct her. Today, looking at her records, I see that her sleep test has been canceled, and rescheduled. Also, it does appear that the test will be done at the [facility] in [place]. Please contact the patient to clarify the location of her appointment, so that she understands thatit is not going to be done at the main hospital. Thanks in advance, Scottie CC: Dr. Veronica documented in this encounter Plan of Treatment Upcoming Encounters Date Type Department Care Team (Late st Contact Info) Description 01/04/2025 13:00 EST Office Visit [facility] Ophthalmology - [address] [id number] Gagandeep Rome MD [address] [place] [address], [address] [place] [phone] 02/11/2025 13:30 EDT Telemedicine [facility] Hematology & Oncology - [address] [phone] Dana Padilla MD [address] [place] [address], [facility] 2 [place] [phone] documented as of this encounter Visit Diagnoses Not on filedocumented in this encounter Additional Health Concerns Infection Onset Date Last Indicated Resolved Time R/O COVID-19 07/22/2022 07/22/2022 2022 22:1 5 EDT documented as of this encounter Care Teams Cosmetician Relationship Specialty Start Date End Date Emigdio Veronica MD [address] [place] [phone] PCP - General Internal Medicine - Primary Care 05/22/20 02/21/24 documented as of this encounter
--- OUTSIDE RECORDS SUMMARY | 2024-11-22 17:02 | XMS_ITS | Encounter Summary ---
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 chlorzoxazone (PARAFON FORTE) 500 mg tablet [Pharmacy Med Name: CHLORZOXAZONE 500 MG TABLET] 90Tablet 1 Sig: TAKE 1 TABLET BY MOUTH THREE TIMES A DAY NEEDED FOR MUSCLE SPASMS [id number] - [address] Confirmed Pharmacy? Yes Patient out of medication? Unknown Last Refill Date: 04/23/22 Refills left? (explain exceptions requiring early refill) No Recent Visits Date Type Provider Dept 06/25/22 Office Visit Emigdio Veronica MD [place] [facility] 05/20/22 Office Visit Nguyen Nolasco NP [place] [facility] 02/17/22 Office Visit Emigdio Veronica MD [place] [facility] 02/10/22 Office Visit Darlene Rollins NP [place] [facility] 01/27/22 Office Visit Osmany Matthews MD [place] [facility] 11/25/21 Office Visit Emigdio Veronica MD [place] [facility] 11/11/21 Office Visit Scottie Campuzano PA-C [place] [facility] 10/20/21 Office Visit Emigdio Veronica MD [place] [facility] 10/08/21 Office Visit Emigdio Veronica MD [place] Adult Prim [facility] 09/18/21 Office Visit Scottie Campuzano PA-C [place] [facility] Showing recent visits within past 540 days with a meds authorizing provider and meeting all other requirements Future Appointments Date Type Provider Dept 08/11/22 Appointment Emigdio Veronica MD [place] [facility] Showing future appointments within next 150 days with a meds authorizing provider and meeting all other requirements Future appointment: Already Scheduled Pended for dr rebecca ROSADO, RN 06/28/2022 11:08 documented in this encounter Plan of Treatment Upcoming Encounters Date Type Department Care Team (Late st Contact Info) Description 01/04/2025 13:00 EST Office Visit [facility] Ophthalmology - [address] [phone] Gagandeep Rome MD [address] [place] [address] 5 [place] [phone] 02/11/2025 13:30 EDT Telemedicine [facility] Hematology & Oncology [address] [phone] Dana Padilla MD [address] [place] [address], [facility] 2 [place] [phone] documented as of this encounter Visit Diagnoses Not on filedocumented in this encounter Discontinued Medications Medication Sig Discontinue Reason Start Date End Da te chlorzoxazone (PARAFON FORTE) 500 mg tablet Take 1 Tablet by mouth 3 times daily as needed for Muscle Spasms. 04/23/2022 06/28/2022 documented as of this encounter Care Teams Chiropractic Practice Manager Relationship Specialty Start Date End Date Emigdio Veronica MD [address] [place] [phone] PCP - General Internal Medicine - Primary Care 05/22/20 02/21/24 documented as of this encounter
--- OUTSIDE RECORDS SUMMARY | 2024-11-22 17:02 | XMS_ITS | Encounter Summary ---
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 Reminded patient to abstain from caffeine for 12 hours, NPO 4 hours except water, wear comfortable clothing and do not apply any lotions or creams to the chest and abdomen areas. Patient aware of campus, date and time. documented in this encounter Plan of Treatment Upcoming Encounters Date Type Department Care Team (Late st Contact Info) Description 01/04/2025 13:00 EST Office Visit [facility] Ophthalmology - [address] [phone] Gagandeep Rome MD [address] [place] [address] 5 [place] [phone] 02/11/2025 13:30 EDT Telemedicine [facility] Hematology & Oncology - [address] [phone] Dana Padilla MD [address] [place] [address], [facility] 2 [place] [address] documented as of this encounter Visit Diagnoses Not on filedocumented in this encounter Care Teams Lithopress Operator Relationship Specialty Start Date End Date Emigdio Veronica MD [address] [place] [address] PCP - General Internal Medicine - Primary Care 05/22/20 02/21/24 documented as of this encounter
--- OUTSIDE RECORDS SUMMARY | 2024-11-22 17:02 | XMS_ITS | Encounter Summary ---
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 Agree with plan. Would have patient obtain that repeat BMP prior there visit with Scottie. She should still see me as scheduled on 07/11 * Telephone Encounter - Sharon Joseph RN - 07/23/2022 1138 EDT Today lower back is hurting, swelling has been going down a little bit about to put shoes. Dyspnea is about the same as yesterday she had her oxygen on lastnight and feel like it could be a little better today was at 253 lbs yesterday and today weight is 252 lbs today. Feels like the edemain bilateral legs went down. Pt is in agreement to take the 40mg of lasix she states that she really does not want to increase her lasix because s worried aout her kidneys appt schedule for 07/29 with DS * Telephone Encounter - Emigdio Veronica MD - 07/23/2022 1126 EDT SHe is correct that her creatinine has increased and that historical this has been due to over diuresis. It is strange why the ED recommended increasing diuretic doage when their primary diagnosis was COPD exacerbation for her dyspnea. It may relate to her complaints of leg edema, but as I have documented previously Tara has chronic edema that cannot be fully resolved with high diuretic doses. It relates to her chronic liver disease. How is she doing today? What is her current level of dyspnea? Has she measured her weights? If so where are they in comparison to prior to her ED presentation. My recommendation would be to return to a dosage of 40 mg daily and arrange an ED follow-up viit ifpossible within the next week with any available provider. A BMP obtained prior to that visit to verify that her kidney function has not worsened. I will order now. * Telephone Encounter - Ebony Toscano - 07/23/2022 1100 EDT Reason for Call: Medication Management Summary/Symptoms: Pt went to the ER yesterday, 07.22.22 for a COPD exacerbation. She says Dr. Veronica had increased her Lasix to 40 mg. She says her labs show that the diuretic are effecting her kidneys. She says the provider she saw in the ER increased her Lasix to 80 mg. The pt is very concerned about the 80 mg dosage & the effect it may have on her kidneys. Onset and Duration: see above Does the patient have a computer, laptop or smart phone with high speed & video capability? No If so, would they be interested in doing a video visit via Zoom? No Appointment Offered? No Ebony Dorcas 07/23/2022 11:00 documented in this encounter Plan of Treatment Upcoming Encounters Date Type Department Care Team (Late st Contact Info) Description 01/04/2025 13:00 EST Office Visit [facility] Ophthalmology - [address] [phone] Gagandeep Rome MD [address] [place] [address], [facility] [address] [place] [phone] 02/11/2025 13:30 EDT Telemedicine [facility] Hematology & Oncology [address] [address] Dana Padilla MD [address] [place] [address], [facility] [address] [place] [phone] documented as of this encounter Results * (ABNORMAL) BASIC METABOLIC PANEL (BMP) (07/28/2022 16:03 EDT) Sodium 139 136 - 145 mmol/L 07/28/2022 17:24 EDT [facility] Potassium 3.8 3.5 - 5.0 mmol/L 07/28/2022 17:24 EDT [facility] Chloride 99 96 - 110 mmol/L 07/28/2022 17:24 EDT [facility] CO2 Total 25 22 - 32 mmol/L 07/28/2022 17:24 EDT [facility] Anion Gap 15(H) 5 - 14 07/28/2022 17:24 EDT [facility] Glucose 121(H) 70 - 100 mg/dL 07/28/2022 17:24 EDT [facility] Calcium 8.9 8.5 - 10.5 mg/dL 07/28/2022 17:24 EDT [facility] BUN 14 10 - 26 mg/dL 07/28/2022 17:24 EDT [facility] Creatinine 0.99 0.52 - 1.04 mg/dL 07/28/2022 17:24 T [facility] eGFR 64 >60 mL/min/1.73 m2 07/28/2022 17:24 EDT [facility] Blood VENOUS BLOOD / Unknown Venipuncture / Unknown 07/28/2022 16:03 EDT 07/28/2022 16:03 EDT us Emigdio Veronica MD CHEMISTRY & BLOOD GAS OR DERABLES Final Result [facility] [address] [place] [address] documented in this encounter Visit Diagnoses Diagnosis Elevated serum creatinine- Primary Other nonspecific findings on examination of blood documented in this encounter Additional Health Concerns Infection Onset Date Last Indicated Resolved Time R/O COVID-19 07/22/2022 07/22/2022 2022 22:1 5 EDT documented as of this encounter Care Teams Dormitory Supervisor Relationship Specialty Start Date End Date Emigdio Veronica MD [address] [place] [phone] PCP - General Internal Medicine - Primary Care 05/22/20 02/21/24 documented as of this encounter
--- OUTSIDE RECORDS SUMMARY | 2024-11-22 17:02 | XMS_ITS | Encounter Summary ---
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 Not on file Not o n file COVID-19 Exposure Response Date Recorded In the last 10 days, have eliot u been in contact with someone who [...] 01/04/2025 13:00 EST Office Visit [facility] Ophthalmology - [address] [phone] Gagandeep Rome MD [address] [place] [address], [facility] [address] [place] [phone] 02/11/2025 13:30 EDT Telemedicine [facility] Hematology & Oncology - [address] [phone] Dana Padilla MD [address] [place] [address], [facility] [address] [place] [address] documented as of this encounter Visit Diagnoses Not on filedocumented in this encounter Additional Health Concerns Infection Onset Date Last Indicated Resolved Time R/O COVID-19 07/22/2022 07/22/2022 2022 22:1 5 EDT documented as of this encounter Care Teams Director Of Strategic Programs Relationship Specialty Start Date End Date Emigdio Veronica MD [address] [place] [phone] PCP - General Internal Medicine - Primary Care 05/22/20 02/21/24 documented as of this encounter
--- OUTSIDE RECORDS SUMMARY | 2024-11-22 17:02 | XMS_ITS | Encounter Summary ---
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 Daily Max: 15 mg 84 Tablet 07/07/2022 08/02/2022 documented in this encounter Miscellaneous Notes * Telephone Encounter - Emigdio Veronica MD - 06/28/2022 1221 EDT Patient's last 28 day oxycodone refill was signed by Dr. Ness 06/01 with a start date on 06/09/22.Assuming she was to start this bottle as instructed her supply should last to 07/07/22. [facility] confirms she filled the prescription on 06/01 as soon as it was written. Her previous 28 day prescription was written by Dr. Obrien on 05/06/22 with a start date of 05/12/22. She filled on 05/12/22and this supply should have lasted her until 06/09/22. Based on this research and the fact that she has had several recent admissions that would result inseveral days of unused pain medication she should have more then enough supply to get to 07/07/22 when she is due for a refill. I am adjusting the script to a start date and an earliest refill date to 07/07/22. * Telephone Encounter - Ebony Toscano - 06/28/2022 1059 EDT Requested Prescriptions Pending Prescriptions Disp Refills ??? oxyCODONE (ROXICODONE) 5 mg immediate release tablet 84 Tablet 0 Sig: Take 1 Tablet by mouth 3 times daily as needed for up to 28 days for Pain. Daily Max: 15 mg [facility]/pharmacy #[id number] - [place], [place] - [address] Confirmed Pharmacy? Yes Patient out of medication? No Last Refill Date: 06.09.22 Refills left? (explain exceptions requiring early refill) No Chronic controlled medication yes Last med check visit 06.25.22 Future visit scheduled Yes 08.11.22 Vpms check Yes Due 09/2022 Prescription agreement Yes Was due in April 2022 Patient due for refill yes Is there a plan for tapering of medication noted in chart? unknown Recent Visits Date Type Provider Dept 06/25/22 Office Visit Emigdio Veronica MD [facility] 05/20/22 Office Visit Nguyen Nolasco, MOTOR ASSEMBLY SUPERVISOR [facility] 02/17/22 Office Visit Emigdio Veronica MD [facility] 02/10/22 Office Visit Darlene Rollins, HARSH [facility] 01/27/22 Office Visit Osmany Matthews MD [facility] 11/25/21 Office Visit Emigdio Veronica MD [facility] 11/11/21 Office Visit Scottie Campuzano PA-C [facility] 10/20/21 Office Visit Emigdio Veronica MD [facility] 10/08/21 Office Visit Emigdio Veronica MD [facility] 09/18/21 Office Visit Scottie Campuzano PA-C [facility] Showing recent visits within past 540 days with a meds authorizing provider and meeting all other requirements Future Appointments Date Type Provider Dept 08/11/22 Appointment Emigdio Veronica MD [facility] Showing future appointments within next 150 days with a meds authorizing provider and meeting all other requirements Future appointment: Already Scheduled Ebony Toscano 06/28/2022 10:59 documented in this encounter Plan of Treatment Upcoming Encounters Date Type Department Care Team (Late st Contact Info) Description 01/04/2025 13:00 EST Office Visit [facility] [place] [address] Gagandeep [place] MD [address] [place] [address], [address] [place] [phone] 02/11/2025 13:30 EDT Telemedicine [facility] Hematology & Oncology - [facility] [address], [place] [phone] Dana Padilla MD [address] [facility] 2 [place] [address] documented as of this encounter Visit Diagnoses Not on filedocumented in this encounter Discontinued Medications Medication Sig Discontinue Reason Start Date End Da te oxyCODONE (ROXICODONE) 5 mg immediate release tablet Take 1 Tablet by mouth 3 times daily as needed for up to 28 days for Pain. Daily Max: 15 mg Reorder 06/09/2022 06/28/2022 documented as of this encounter Additional Health Concerns Infection Onset Date Last Indicated Resolved Time R/O COVID-19 07/22/2022 07/22/2022 2022 22:1 5 EDT documented as of this encounter Care Teams Legal Secretary Receptionist Relationship Specialty Start Date End Date Emigdio Veronica MD [address] [place] [phone] PCP - General Internal Medicine - Primary Care 05/22/20 02/21/24 documented as of this encounter
--- OUTSIDE RECORDS SUMMARY | 2024-11-22 17:02 | XMS_ITS | Encounter Summary ---
Author Organization [facility] Address [address] [place] [address] Care Team Providers Care Digital Sales Assistant Name Role Phone Emigdio Veronica MD Primary Care Provider + Reason for Referral * Radiology Services (Routine/Next Available) - Authorization Not Required Specialty Diagnoses / Procedures Referred By [facility] Referred To Contact Diagnoses Chronic obstructive pulmonary disease, unspecified COPD type ([facility]) Procedures XR CHEST 2 VIEWS Scottie Campuzano PA-C Phone: tel: fax: [facility] Referral ID Status Reason Start Date Expiration Date Visits Requested Visits Authorized [id number] Authorization Not Required 07/29/2022 1 1 Reason for Visit * Reason Comments Post-ED Follow Up COPD Exacerbation Back Pain Encounter Details Date Type Department Care Team (Late st Contact Info) Description 07/29/2022 13:45 EDT Office Visit [facility] Adult Primary Care - [place] [address] [place], [place] [phone] Scottie Campuzano PA-C [address] [place] [phone] Chronic obstructive pulmonary disease, unspecified COPD type (HCC-CMS) (HCC) (HCC-CMS) (Primary Dx); Chronic midline thoracic back pain Social History Tobacco Use Types Packs/Day Years Used Date Smoking Tobacco: Some Days Cigarettes 0.3 35 Smokeless Tobacco: Never Tobacco Cessation:Ready to Q uit: No Comments:smokes couple times a week Alcohol [...] 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 Yes 07/22/2022 17:10 EDT documented as of this encounter Last Filed Vital Signs Vital Sign Reading Time Taken Comments Blood Pressure 101/54 07/29/2022 1333 EDT Pulse 100 07/29/2022 1333 EDT Temperature 36.9 ??C (98.5 ??F) 07/29/2022 1333 EDT Respiratory Rate - - Oxygen Saturation 94% 07/29/2022 1333 EDT Inhaled Oxygen Concentration - - Weight 113.4 kg (250 lb) 07/29/2022 1333 EDT Height 162.6 cm (5' 4) 07/29/2022 1333 EDT Body Mass Index 42.91 07/29/2022 1333 EDT documented in this encounter [...] to 2 per day. 270 Tablet 1 07/29/2022 2 documented in this encounter Progress Notes * Arlette Le - 07/29/2022 1345 EDT O2sat done w/ result 94%. I was supervised by Scottie Mast who was present and immediately available in the office suite. Arlette Le 07/29/2022 14:11 * Scottie Campuzano PA-C - 07/29/2022 7450 EDT Subjective: Patient ID: Tara Yun is an 62 y.o. female. Chief Complaint Patient presents with ??? Post-ED Follow Up ??? COPD Exacerbation ??? Chest Pain this morning HPI Gena was seen recently at the emergency department for a COPD exacerbation. No chest x-ray was done at that time. She tells me she feels really exhausted. She is not sleeping well. She has not had a fever or chill. She tells me that she has pain in her mid back that is chronic, but recently significantly worse. It is hard for her to get comfortable in any position. Patient Active Problem List Diagnosis ??? Pancytopenia (HCC) ??? Mild persistent asthma without complication ??? Drug-seeking behavior ??? Splenic vein thrombosis ??? Chronic pain syndrome ??? Other cirrhosis of liver (HCC) ??? Obesity, Class II, BMI 35-39.9 ??? Hypothyroidism ??? Abdominal wall hernia ??? Allergic rhinitis ??? Partial small bowel obstruction (HCC-CMS) (HCC) ??? HUEY (obstructive sleep apnea) ??? Dyspnea ??? Nephrolithiasis ??? Left ureteral stone ??? COPD (chronic obstructive pulmonary disease) (HCC-CMS) (HCC) ??? Portal vein thrombosis ??? Frequent falls ??? Fluid overload ??? Moderate protein-calorie malnutrition (HCC-CMS) (HCC) ??? Hypersplenism ??? 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HCC-CMS) (HCC) ??? Chronic respiratory failure with hypoxia (HCC-CMS) (HCC) ??? Peptic ulcer disease with hemorrhage ??? Thrombocytopenia (HCC-CMS) (HCC) ??? Abdominal pain ??? LUQ abdominal pain ??? Respiratory failure with hypoxia (HCC-CMS) (HCC) ??? Shortness of breath ??? Hypoxemia ??? COPD exacerbation ([facility]) ([facility]) Outpatient Medications Marked as Taking for the 07/29/22 encounter (Office Visit) with Scottie Campuzano PA-C Medication Sig Dispense Refill ??? albuterol 90 mcg/actuation inhaler Inhale 1-2 Puffs as directed every 4 hours as needed for Wheezing. 1 Inhaler 0 ??? chlorzoxazone (PARAFON FORTE) 500 mg tablet TAKE 1 TABLET BY MOUTH THREE TIMES A DAY NEEDED FOR MUSCLE SPASMS 90 Tablet 1 ??? furosemide (LASIX) 20 mg tablet Take 2 Tablets by mouth 2 times daily. Until seen by PCP. ??? INCRUSE ELLIPTA 62.5 mcg/actuation INHALE 1 PUFF BY MOUTH DIRECTED DAILY 30 Each 0 ??? ketotifen (ZADITOR) 0.025 % (0.035 %) ophthalmic solution Place 1 Drop into both eyes 2 times daily as needed (eye irritation). Do not exceed 2 applications per day 5 mL 1 ??? levothyroxine (SYNTHROID) 25 mcg [...] needed for Nausea. 30 Tablet 1 ??? ondansetron (ZOFRAN-ODT) 4 mg disintegrating tablet Take 1 Tablet by mouth every 8 hours as needed for Nausea. 10 Tablet 0 ??? oxyCODONE (ROXICODONE) 5 mg immediate release tablet Take 1 Tablet by mouth 3 times daily as needed for up to 28 days for Pain. Daily Max: 15 mg 84 Tablet 0 ??? oxyCODONE (ROXICODONE) 5 mg immediate release tablet Take 1 Tablet by mouth every 8 hours as needed for Pain. Daily Max: 15 mg 2 Tablet 0 ??? OXYGEN-AIR DELIVERY SYSTEMS [...] by mouth at bedtime. 180 Tablet 0 ROS - See HPI Objective: BP 101/54 (BP Cuff Location: Left arm, BP Patient Position: Sitting, BP Cuff Sizes: Adult, regular) Pulse 100 Temp 36.9 ??C (98.5 ??F) (Tympanic) Ht 162.6 cm (64) Wt (!) 113.4 kg (250 lb) SpO2 94% BMI 42.91 kg/m?? Physical Exam Alert, oriented. No acute respiratory distress. Appears tired, and uncomfortable from pain. Heart: regular rhythm at approximately 100 bpm. Lungs: no respiratory distress. No accessory muscle use. Coarse breath sounds in all godwin. No rales. No audible wheeze. Legs: 1+ pitting edema bilat Assessment / Plan: Tara was seen today for post-ed follow up, copd exacerbation and back pain. Diagnoses and all orders for this visit: Chronic obstructive pulmonary disease, unspecified COPD type ([facility]) ([facility]) - EAR/PULSE OXIMETRY, SINGLE - XR CHEST 2 VIEWS; Future Chronic midline thoracic back pain - Cancel: XR THORACIC SPINE 2 VIEWS; Future Other orders - furosemide (LASIX) 20 mg tablet; Take 3 every morning; if fluid is well controlled then reduce to2 per day. COPD exacerbation/dyspnea. Chest x-ray ordered to rule out pneumonia, pulmonary edema. Increase furosemide dose. Low-sodium diet. The patient's thoracic back pain seems to be mechanical in nature . Worse with movement . I encouraged nonpharmacologic measures for comfort in terms of thoracic back pain to augment her pain management medications Tara was seen today for post-ed follow up, copd exacerbation and chest pain. Diagnoses and all orders for this visit: Chronic obstructive pulmonary disease, unspecified COPD type (HCC-CMS) (HCC) - EAR/PULSE OXIMETRY, SINGLE No orders of the defined types were placed in this encounter. Orders Placed This Encounter Procedures ??? Ear/Pulse Oximetry, Single Order Specific Question: Results Release to Patient (Note: Choosing Manual Release will only block results from tests performed at [facility] and does not apply for Miscellaneous Test Order) Answer: Immediate via [employer] Scottie Campuzano PA-C Next appt at [place] Office: 08/11/2022 07/29/2022 14:09 documented in this encounter Plan of Treatment Upcoming Encounters Date Type Department Care Team (Late st Contact Info) Description 01/04/2025 13:00 EST Office Visit [facility] Ophthalmology [address] [phone] Gagandeep [place] MD [address] [place] [address] [address] [place] [phone] 02/11/2025 13:30 EDT Telemedicine [facility] Hematology & Oncology [address] [phone] Dana Pad[place] MD [address] [place] [address], [facility] [address] [place] [address] Scheduled Orders Name Type Priority Associated Diagnoses Orde r Schedule EAR/PULSE OXIMETRY, SINGLE Procedures Routine Chronic obstructive pulmonary disease, unspecified COPD type (HCC-CMS) (HCC) (HCC-CMS) Ordered: 07/29/2022 documented as of this encounter Results * XR CHEST 2 VIEWS (07/30/2022 10:22 [...] above interpretation andagree with the findings. us Scottie Campuzano PA-C IMG DIAGNOSTI C IMAGING ORDERABLES Final Result documented in this encounter Visit Diagnoses Diagnosis Chronic obstructive pulmonary disease, unspecified COPD type (HCC-CMS)- Primary Chronic midline thoracic back pain Chronic midline thoracic back pain Chronic obstructive pulmonary disease, unspecified COPD type (HCC-CMS) documented in this encounter Care Teams Digital Sales Assistant Relationship Specialty Start Date End Date Emigdio Veronica MD [address] [place] [phone] PCP - General Internal Medicine - Primary Care 05/22/20 02/21/24 documented as of this encounter
--- OUTSIDE RECORDS SUMMARY | 2024-11-22 17:02 | XMS_ITS | Encounter Summary ---
Author Organization [facility] Address [address] [place] [address] Care Team Providers Care Gun Stocker Name Role Phone Emigdio Veronica MD Primary Care Provider + Reason for Referral * Medication Prior Authorization - Denied Specialty Diagnoses / Procedures [facility] Referred To Contact Emigdio Veronica MD [address] [place] [address] Phone: tel: fax: Referral ID Status Reason Start Date Expiration Date Visits Re quested Visits Authorized [id number] Denied 1 1 Reason for Visit * Reason Onset Date Comments Medication Management 06/25/2022 Encounter Details Date Type Department Care Team (Late st Contact Info) Description 06/25/2022 Telephone [facility] Adult Primary Care - [place] [address] [place] [address] Pam Ivey, high school science tutor Management Social History Tobacco Use Types Packs/Day [...] 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 50 g 1 06/25/2022 lidocaine 4 % patch Apply to back once daily as needed for pain. Remove after 12 hours of use. 30 Patch 1 06/25/2022 3 documented in this encounter Miscellaneous Notes * Telephone Encounter - Pam vIey RN - 06/25/2022 1713 EDT Phone call to Pt again. Let her know that it is not worth trying to get the 5% patches covered so Dr Veronica resent Rx as 4% patches, though she will need to pay OTC mckeon. He also sent Rx for diclofenac gel for pain. Pt verbalizes understanding. * Telephone Encounter - Pam Ivey RN - 06/25/2022 1707 EDT Phone call to Pt. Let her know that 5% lidocaine patches will require a PA ans also likely won't be covered anyway. She can get 4% patches OTC. Let her know that a message was sent to Dr Veronica regarding gel. Pt verbalized understanding. * Telephone Encounter - Emigdio Veronica MD - 06/25/2022 1702 EDT We discussed a gel as an alternative for the patches. We did not discuss using it for the knees, but that is a reasonable application for the gel we discussed. I have written for diclofenac. I'll resend the lidocaine patches as 4%. I cautioned that it is unlikely they will be covered by insurance. * Telephone Encounter - Pam Ivey RN - 06/25/2022 1702 EDT Discuss with [facility]- they had to release the Rx to the pharmacy since it will require a PA. 5% lidocaine patches likely will not be covered, as the PA will only go through if it is for shingles, diabetic neuropathy, or cancer pain. * Telephone Encounter - Pam Ivey RN - 06/25/2022 1647 EDT Phone call from Pt. She says that Dr Veronica was supposed to be sending Rx for Lidocaine patches and a gel to rub on her knees for pain. Nothing at the pharmacy. It looka like Rx for 5% lidocaine patches was sent but may not have actually gone through to pharmacy. There is not an Rx for a gel in list. Phone call to pharmacy. They confirm that they have not received Rx yet for the lidocaine patches. We will need to send again. The pharmacist did states that the 5% patches will require a prior authorization. 4% patches are available OTC but won't be covered by insurance. Will resent the Rx for lidocaine patches. Dr Veronica did you intend to send a gel for the Pt to apply topically to her knees? documented in this encounter Plan of Treatment Upcoming Encounters Date Type Department Care Team (Late st Contact Info) Description 01/04/2025 13:00 EST Office Visit [facility] Ophthalmology - [address] [address] Gagandeep [place] MD [address] [facility], [address] [place] [phone] 02/11/2025 13:30 EDT Telemedicine [facility] Hematology & Oncology - [facility] [address] [place] [address] Dana Pad[place] MD 111 [facility], [address] [place] [phone] documented as of this encounter Visit Diagnoses Not on filedocumented in this encounter Discontinued Medications Medication Sig Discontinue Reason Start Date End Da te lidocaine 5 % (LIDODERM) 5 % patch Place 1 Patch onto the skin daily. Patch(es) may remain in place for up to 12 hours in any 24-hour period. Alternate therapy 06/25/2022 06/25/2022 documented as of this encounter Care Teams Gun Stocker Relationship Specialty Start Date End Date Emigdio Veronica MD [address] [place] [phone] PCP - General Internal Medicine - Primary Care 05/22/20 02/21/24 documented as of this encounter
--- OUTSIDE RECORDS SUMMARY | 2024-11-22 17:02 | XMS_ITS | Encounter Summary ---
Author Organization 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 Veronica's 06.25.22 notes: She continues to note diffuse back, abdominal and bilateral knee pain. Is a longstanding history ofchronic pain syndrome which she is currently on oxycodone 5 mg 3 times daily. She is unable to takeacetaminophen due to a history of thrombocytopenia per hematology and is unable to take oral NSAIDsdue to her history of chronic kidney disease. She states she has noticed some relief in her back pain with the use of [id number] lidocaine patches in the past. She has not tried a topical diclofenac gel for her arthritic pain previously. Patient has tried and failed: OTC Lidocaine patches Pharmacy: [facility] Insurance: [employer] phone/fax: option 3 ID# [id number] Form required? Started online & submitted through [employer] documented in this encounter Plan of Treatment Upcoming Encounters Date Type Department Care Team (Late st Contact Info) Description 01/04/2025 13:00 EST Office Visit [facility] Ophthalmology - [address] [phone] Gagandeep [place] MD [address] [place] [address], [facility] [address] [place] [phone] 02/11/2025 13:30 EDT Telemedicine [facility] Hematology & Oncology - [address] [phone] Dana Padilla MD [address] [place] [address], [address] [place] [address] documented as of this encounter Visit Diagnoses Not on filedocumented in this encounter Additional Health Concerns Infection Onset Date Last Indicated Resolved Time R/O COVID-19 07/22/2022 07/22/2022 2022 22:1 5 EDT documented as of this encounter Care Teams Meter Calibrator Relationship Specialty Start Date End Date Emigdio Veronica MD [address] [place] [phone] PCP - General Internal Medicine - Primary Care 05/22/20 02/21/24 documented as of this encounter
--- OUTSIDE RECORDS SUMMARY | 2024-11-22 17:02 | XMS_ITS | Encounter Summary ---
Author Organization [facility] Address [address] [place] [address] Care Team Providers Care Desizing Machine Operator Head End Name Role Phone Emigdio Veronica MD Primary Care Provider + Reason for Visit * Reason Onset Date Comments Foot Swelling 06/21/2022 Hospital Discharge Follow Up 06/21/2022 CHF Encounter Details Date Type Department Care Team (Late st Contact Info) Description 06/21/[address] 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 No problems with breathing today. Patient will weigh herself and increase spironolactone to 75 mg if weight is going up. Patient will continue lasix at current dose. Patient complainig of back pain between shoulders. Worse when sitting up. Better when using heating pad and laying down. Discussed ergonomic position changes when sitting up. Avoiding stretching to one side. Discussed using pillows to support arms in chair. The patient indicates understanding of these issues and agrees with the plan. Patient will keep follow up appointment on Tuesday. The patient indicates understanding of these issues and agrees with the plan. * Telephone Encounter - Emigdio Veronica MD - 06/22/2022 0756 EDT Her fatigue likely relates to her recent illness and the discontinuation of steroids. The chills are non-specific with her recent hospitalization, but could be concerning for infection and should be monitored closely. If they persist or worsen I would recommend return to the ED. As for her weight gain it is once again a difficult call. We need consistent day to day weights to accurately gauge the effectiveness of her diuretic regiment. Historically Susaniss has triggered several episodes of MUSA with aggressive increases in her diuretics for too long. I would have her measure her weight again today. If it is still increasing my recommendation would be to increase her spirolactone from 50 mg (1 tablet) to 75 mg (1.5 tablets) daily. She should continue her lasix at 40 mg daily for now. * Telephone Encounter - Jes Mayorga RN - 06/21/2022 1627 EDT Discharge call to patient. patient is taking 40 mg of lasix daily. 4 pounds of weight gain since discharged from the hospital. Both legs are swollen. Left leg is the worst and feels like it is on fire. No Thermometer. Has the cold chills and nausea. Finished prednisone yesterday. No home health service patient has the dry heaves, not eating much. Not dizzy or light headed. Breathing is better than before went to hospital. Goes to sleep easily. Can fall asleep mid sentence. No palpitation. Falling asleep easily was happening while patient in the hospital. Patient has oxygen at home and is wearing it at 2 liter. Recommendation? Increase lasix? Return to ER * Telephone Encounter - Tiny Moss - 06/21/2022 1554 EDT Reason for Call: Foot Swelling and Hospital Discharge Follow Up (CHF) Summary/Symptoms: Patient was in hospital for fluid overload last week and was diagnosed with CHF. Pt was discharged on Tuesday06-18-22 Her leg is on fire and foot is swelling.Pt is very nauseous, tired. Pt states she very tired and blacks out -falls asleep Onset and Duration: Does the patient have a computer, laptop or smart phone with high speed & video capability? N/A If so, would they be interested in doing a video visit via Zoom? N/A Appointment Offered? No Tiny Moss 06/21/2022 15:55 documented in this encounter Plan of Treatment Upcoming Encounters Date Type Department Care Team (Late st Contact Info) Description 01/04/2025 13:00 EST Office Visit [facility] Ophthalmology - [address] [address] Gagandeep Rome MD [address] [facility], [address] [place] [phone] 02/11/2025 13:30 EDT Telemedicine [facility] Hematology & Oncology - [address] [phone] Dana Padilla MD [address] [facility], [facility] [address] [place] [phone] documented as of this encounter Visit Diagnoses Not on filedocumented in this encounter Care Teams Desizing Machine Operator Head End Relationship Specialty Start Date End Date Emigdio Veronica MD [address] [place] [phone] PCP - General Internal Medicine - Primary Care 05/22/20 02/21/24 documented as of this encounter
--- OUTSIDE RECORDS SUMMARY | 2024-11-22 17:02 | XMS_ITS | Encounter Summary ---
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 1x duoneb en route, 3L 02NC. Encounter Details Date Type Department Care Team (Late st Contact Info) Description 07/22/2022 17:05 EDT - 07/22/2022 22:56 EDT Emergency 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 Yes 07/22/2022 17:10 EDT documented as of this encounter Last Filed Vital Signs Vital Sign Reading Time Taken Comments Blood Pressure 102/78 07/22/2022 2200 EDT Pulse 86 07/22/2022 1708 EDT Temperature 36.4 ??C (97.5 ??F) 07/22/2022 1708 EDT Respiratory Rate 16 07/22/2022 2200 EDT Oxygen Saturation 95% 07/22/2022 2200 EDT Inhaled Oxygen Concentration - - Weight 114.8 kg (253 lb) 07/22/2022 1708 EDT Height 162.6 cm (5' 4) 07/22/2022 1708 EDT Body Mass Index 43.43 07/22/2022 1708 EDT documented in this encounter Functional [...] this encounter Discharge Instructions * Discharge Instructions* Jossue Lozano MD - 07/22/2022 22:42 EDT Thank you for coming to the ED at [facility] for your medical care. Whenever we see you in the emergency department we are getting a snapshot of your medical condition. Things can change and even small changes might alter how we care for you. If your symptoms change in a way that concerns you or makes you unsure, please return for re-evaluation. We are here 24 hours a day, every day of the year, so donot hesitate to return. You were seen for difficulty breathing. We did labs, gave you a nebulizer and diuretic, took a history and did a complete physical exam. Please set up an appointment with a primary care doctor to get re-evaluated and rechecked as soon as possible. Please get your labs rechecked for kidney function early next week. Please increase the amount of furosemide you are taking to 40 mg twice daily for the next 5 days. Please continue to weigh yourself daily. Please return to the emergency department if you have symptoms that worsen, severe shortness of breath, chest pain, fevers, or you have other concerns. documented in this encounter Medications at Time of Discharge diclofenac sodium gel Apply 2 g topically 2 times daily as needed for Pain (Knee pain). 50 g 1 2 INCRUSE ELLIPTA 62.5 mcg/actuationIndica tions:Chronic obstructive pulmonary disease, unspecified COPD type (HCC-CMS) [...] 2 11/09/20 22 furosemide (LASIX) 20 mg tabletIndications:B ilateral [...] by mouth at bedtime. 180 Tablet 2 07/29/20 22 documented as of this encounter Ordered Prescriptions Prescription Sig Dispense Quantity Refills Last Filled Start Date End Date ondansetron (ZOFRAN-ODT) 4 mg disintegrating tablet Take 1 Tablet by mouth every 8 hours as needed for Nausea. 10 Tablet 07/22/2022 2 furosemide (LASIX) 20 mg tabletIndications:Bi lateral lower extremity edema Take 2 Tablets by mouth 2 times daily. Until seen by PCP. 07/22/2022 2 documented in this encounter Discharge Disposition Disposition Code Departure Means Destination Home or Self Snf documented in this encounter ED Notes * Zully Pate RN - 07/22/2022 5465 EDT Pt given discharge instructions, expresses understanding with no additional questions at this time.Pt aware to follow up with PCP, follow up with outpatient labs on Tuesday, increase Lasix as ordered, and return to ED for concerning symptoms. IV access removed and gauze dressing placed with bleeding controlled. Pt ambulates out of department with steady gait to meet friend for ride home. Pt A&O in NAD at time of discharge. * Zully Pate RN - 07/22/2022 2238 EDT Pt tolerating PO nuria john and crackers well. Ambulated to bathroom with steady gait. States wantsto go home and sleep. Dr Lozano aware. * Zully Pate RN - 07/22/2022 2102 EDT Pt sleeping peacefully. NAD. VSS. * Fausto Roberts MD - 07/22/2022 1854 EDT This patient received an evaluation and medical screening exam for emergent medical conditions at the [facility] on 07/22/2022 This note was created and authored by Jossue Lozano MD working under the supervision of Fausto Roberts MD. Fausto Owusu MD, performed a history and exam of this patient and discussed the case with the resident. I have reviewed and edited this note, and the documentation is consistent with my findings, assessment and plan. I fully participated in the medical decision making. Patient with a history of both COPD and CHF, portal and splenic venous thrombosis presents with nausea and shortness of breath. She also reports a fever 100.4 at home. She reports she has been unableto keep her medicines down the last 2 to 3 days and feels like she is retaining fluid. Exam showed her to have normal O2 sats at rest and some very minimal diffuse upper abdominal tenderness. Labs reassuring and unremarkable. No evidence of UTI pneumonia or other acute infectious process. COVID testing was negative She was given both Lasix and DuoNeb here with improvement in her feelings of shortness of breath and some diuresis. Able to tolerate p.o.'s and do not think further work-up indicated at this time as she looks improved enough to be discharged. Follow-up with PCP. Return if persistent nausea vomitingor worsening shortness of breath. Agree with resident's assessment and plan Chief Complaint: Chief Complaint Patient presents with ??? Shortness of Breath BIBEMs after increasing SOB, fluid retention at home, 3d of nausea/vomiting with reported 1x fever of 100.4F. 1x duoneb en route, 3L 02NC. Assessment and ER Summary/Medical Decision Making In summary, this is a 61-year-old female with many comorbid medical conditions including COPD, CHF,portal and splenic venous thrombosis, multiple abdominal surgeries who presents with nausea and shortness of breath with significant dyspnea on exertion. Differential includes COPD exacerbation, CHF exacerbation, mesenteric ischemia, small bowel obstruction, PE. PE is thought to be unlikely in thispatient who is not tachycardic or hypoxic beyond her baseline. Mesenteric ischemia is thought to below risk in this patient with abdominal tenderness and minimal abdominal discomfort. Intra-abdominal pathologies are also thought to be less likely in this patient with a relatively benign abdominal exam and unremarkable WBC who is afebrile. The patient is thrombocytopenic which is not a change from her baseline. She does have a mildly elevated creatinine at 1.26 compared to baseline which appears to be around 1.0. CHF exacerbation remains in the differential given the patient's significant weight gain in the last 5 days and pitting edema, however, patient does not have any rales on exam. Regardless, the patient was given 60 mg of IV furosemide and instructed to increase her home furosemidefrom 40 mg daily to 40 mg twice daily. COPD exacerbation was considered to be the most likely diagnosis based on the fact that the patient was having active expiratory wheezing and experienced symptom improvement with a DuoNeb. The source of her nausea remains unclear but this did improve with ondan setron administration and she was able to tolerate a p.o. challenge. The patient's pain also improved with acetaminophen, ketorolac, and hydromorphone. She was given return precautions and advised tofollow-up closely with her PCP and to have her creatinine rechecked early next week. Jossue Lozano MD Clinical Impression: Final diagnoses: MUSA (acute kidney injury) ([facility]) ([facility]) COPD exacerbation ([facility]) ([facility]) Disposition: Discharged Disposition decisions were made weighing risks and benefits of hospitalization vs. outpatient treatment, the risk for further decompensation, and the patient???s wishes. History of Present Illness: FINA Boothe is a 61 y.o. female with history of COPD, CHF, portal and splenic venous thrombosis, peptic ulcer disease, multiple hernia repairs, prior cholecystectomy, prior appendectomy, prior hysterectomy with recent admission for CHF exacerbation approximately 3 to 4 weeks ago who presents with sudden weight gain of 11 pounds in the last 5 days and increase dyspnea on exertion. She states that she has also had nausea and vomiting with clear emesis for the last few days as well as chest pressure for the last few days. She states that the chest pressure is consistent with symptoms she hadlast time she was admitted for CHF exacerbation but the nausea and vomiting are very new unusual for her. She states that over the last few weeks she has also been having episodes of syncope and significant dizziness. She states these resulted in a handful of falls but she does not believe she was seriously injured in any of them and did not seek medical care. She states that she had a temperature of 100.6 Fahrenheit at home the other day but does not feel like she has a fever currently. She is normally on 2 L of oxygen at night and 3 L during the day when she is active. She states that she does not feel short of breath sitting still but that she very quickly becomes short of breath with any activity. She lives in [place] with 2 roommates and has a son who lives nearby in [place]. Sheis not currently on anticoagulation for her portal or splenic venous thrombi due to history of recent low platelet counts. She was noted on 06/25 to have a platelet count of 97 that sample may have been hemodilute as she also had a WBC of 3.2 and hemoglobin of 10.7 which were below her average baseline. She states that she has been unable to keep any medications down for the past 2 days. History was provided by: patient, medical record review Review of Systems: ROS A 10-point review of systems was performed. The patient answered negative to all questions with theexceptions of those explicitly detailed as positives in the HPI. Pertinent negatives are also explicitly stated. Physical Exam: Nursing notes and vital signs reviewed. A medical screening exam was performed. Vital Signs Temp: 36.4 ??C (97.5 ??F) Pulse: 86 Heart Rate: 85 BPM Cardiac Rhythm: Normal sinus rhythm Resp: 16 SpO2: 95 % Pulse From Oximetry: 75 BPM BP: 102/78 BP MAP: 74 mm Hg BP Device: Manual cuff O2 Device: Nasal cannula Physical Exam Constitutional: awake, alert, NAD, morbidly obese Head: Atraumatic, normocephalic Eyes: EOM intact, no scleral icterus Mouth: Moist oral mucosa without apparent lesions Neck: Full ROM Cardiovascular: Regular rate and rhythm with distant heart sounds and no appreciable murmur. Extremities warm and well perfused, 2+ pitting edema in lower extremities bilaterally. Respiratory: Normal respiratory effort. Wheezing in upper god[place] bilaterally. Slight rales in bilateral lower godwin. Abdomen: Obese, diffusely tender, voluntary guarding, no clear rebound tenderness Skin: No overt rashes on exposed skin, venous stasis changes in bilateral lower extremities Musculoskeletal: Moving extremities spontaneously; no gross deformities Neuro: Grossly neurologically intact with normal speech Psych: No agitation or overt thought disorder Results: An EKG was obtained and independently interpreted: Regular, normal rate, sinus rhythm, normal axis,normal intervals, no acute ST or T change Laboratory results independently reviewed: Labs Reviewed COMPLETE BLOOD COUNT AND DIFFERENTIAL - Abnormal Result Value Status WBC 4.09 Final RBC 3.84 (*) Final Hemoglobin 10.6 (*) Final HCT 33.6 (*) Final MCV 88 Final MCH 27.6 Final MCHC 31.5 (*) Final RDW-CV 14.8 (*) Final RDW-SD 47.9 Final PLT 84 (*) Final MPV 10.4 Final Neutrophils 79.5 Final Lymphocytes 8.8 Final Monocytes 10.0 Final Eosinophils 1.0 Final Basophils 0.5 Final Immature Grans 0.2 Final Absolute Neutrophils 3.25 Final Absolute Lymphocytes 0.36 (*) Final Absolute Monocytes 0.41 Final Absolute Eosinophils 0.04 Final Absolute Basophils 0.02 Final Absolute Immature Grans 0.01 Final Type of Differential: Auto Final COMPREHENSIVE METABOLIC PANEL (CMP) - Abnormal Sodium 138 Final Potassium 3.8 Final Chloride 98 Final CO2 Total 29 Final Glucose 84 Final BUN 13 Final Creatinine 1.26 (*) Final eGFR 49 (*) Final Total Protein 6.6 Final Albumin 3.8 Final Alkaline Phosphatase 106 Final AST 29 Final ALT 13 Final Bilirubin, Total 0.8 Final Calcium 8.6 Final Albumin/Globulin Ratio 1.4 Final Anion Gap 11 Final POCT URINE DIPSTICK, CLINITEK - Abnormal Color, UA Yellow Final Clarity, UA Slightly Cloudy (*) Final Glucose, UA Negative Final Bilirubin, UA Negative Final Ketones, UA Negative Final Specific Gary, Urine 1.015 Final Blood, UA 1+ (*) Final pH, UA 7.0 Final Protein, UA Negative Final Urobilinogen, UA 0.2 Final Nitrite, UA Negative Final Leuk Esterase Negative Final HN LAB COMMENT (CLINITEK, UR) Test performed at Emergency Department Final LIPASE - Normal Lipase 58 Final COVID-19 TESTING COVID-19 rt-PCR Result Negative Final Performing Lab [facility] Lab Final COVID-19 TEST [facility] PCR HOLD BLUE TOP Hold Hold Final HOLD GREEN TOP Hold Hold Final HOLD LAVENDER TOP Hold Hold Final HOLD SST Hold Hold Final POCT URINE CLINITEK (DIPSTICK) - DOES NOT REFLEX Narrative: The following orders were created for panel order POCT URINE CLINITEK (DIPSTICK) - DOES NOT REFLEX. Procedure Abnormality Status --------- ------ POCT URINE DIPSTICK, CLI...[[id number]] Abnormal Final result POCT CSN BARCODE URINE D...[[id number]] Final result Please view results for these tests on the individual orders. POCT CSN BARCODE URINE DIPSTICK Procedures N/A Some of this note was transcribed with [employer] dictating software. While it was proofread, it may still contain unnoticed grammatical or word errors due to incorrect transcribing. * Emigdio Davies - 07/22/2022 1815 EDT TCALL: Tara Boothe 60. Referred by [facility] for COPD and pitting edema. + SOB and 11lb weight gain over past week. Fever on Tuesday 100.4 per patient. Afebrile now. * Zully Pate RN - 07/22/2022 1807 EDT RN in to obtain IV access and lab holds. Pt has self-removed O2 and is satting at 96% on RA. Pt states that she wears 2L NC PRN at home, but does not feel she needs it at this time. NC left within reach so that pt can reapply easily as needed. RN unable to obtain bloodwork or IV access. US tech to obtain USGIV placement. * Elvira Sun - 07/22/2022 1718 EDT 12 Lead EKG Performed by ELVIRA SUN and shown to Dr. Roberts. documented in this encounter Plan of Treatment Upcoming Encounters Date Type Department Care Team (Late st Contact Info) Description 01/04/2025 13:00 EST Office Visit [facility] Ophthalmology - [address] [id number] Gagandeep Rome MD [address] [facility], [address] [place] [phone] 02/11/2025 13:30 EDT Telemedicine [facility] Hematology & Oncology - [address] [id number] Dana Padilla MD [address] [facility], [address] [place] [address] documented as of this encounter Procedures Procedure Name Priority Date/Time Associated Diagnosis Comments ECG REPORT - SCANNED 08/09/2022 15:56 EDT ECG REPORT - SCANNED 08/09/2022 15:56 EDT POCT URINE DIPSTICK, CLINITEK STAT 07/22/2022 19:49 EDT POCT CSN BARCODE URINE DIPSTICK STAT 07/22/2022 19:42 EDT POCT URINE CLINITEK (DIPSTICK) - DOES NOT REFLEX STAT 07/22/2022 19:42 EDT HOLD SST Routine 07/22/2022 18:31 EDT HOLD LAVENDER TOP Routine 07/22/2022 18: 31 EDT HOLD GREEN TOP Routine 07/22/2022 18:31 EDT HOLD BLUE TOP Routine 07/22/2022 18:31 EDT COMPLETE BLOOD COUNT AND DIFFERENTIAL STAT Add-on 07/22/2022 18:31 EDT LIPASE STAT Add-on 07/22/2022 18:31 EDT COMPREHENSIVE METABOLIC PANEL (CMP) STAT Add-on 07/22/2022 18:31 EDT POCT US ED GUIDANCE PIV 07/22/2022 18:12 EDT ZZCOVID-19 TEST [facility] PCR Today 07/22/2022 18:02 EDT COVID-19 TESTING Routine 07/22/2022 18:0 2 EDT EKG 12-LEAD STAT 07/22/2022 17:16 EDT documented in this encounter Results * ECG REPORT - SCANNED (08/09/2022 15:56 EDT) 08/09/2022 15:5 6 EDT us Scan 2 [employer] PROCEDURE/MINOR SURGICAL OR DERABLES Final Result * ECG REPORT - SCANNED (08/09/2022 15:56 EDT) 08/09/2022 15:5 6 EDT us Scan 2 [employer] PROCEDURE/MINOR SURGICAL OR DERABLES Final Result * (ABNORMAL) POCT URINE DIPSTICK, CLINITEK (07/22/2022 19:49 EDT) Color, UA Yellow Yellow 07/22/2022 19:51 EDT [facility] Clarity, UA Slightly Cloudy(A) Clear 07/22/2022 19:51 EDT [facility] Glucose, UA Negative Negative 07/22/2022 19:51 EDT [facility] Bilirubin, UA Negative Negative 07/22/2022 19:51 EDT [facility] Ketones, UA Negative Negative 07/22/2022 19:51 EDT [facility] Specific Gary, Urine 1.015 1.001 - 1.035 07/22/2022 19:51 EDT [facility] Blood, UA 1+(A) Negative 07/22/2022 19:51 EDT [facility] pH, UA 7.0 4.6 - 8.0 07/22/2022 19:51 EDT [facility] Protein, UA Negative Negative 07/22/2022 19:51 EDT [facility] Urobilinogen, UA 0.2 0.2 - 1.0 mg/dL 07/22/2022 19:51 EDT [facility] Nitrite, UA Negative Negative 07/22/2022 19:51 EDT [facility] Leuk Esterase Negative Negative 07/22/2022 19:51 EDT [facility] HN LAB COMMENT (CLINITEK, UR) Test performed at Emergency Department 07/22/2022 19:51 EDT [facility] Urine URINE SPECIMEN COLLECTION, CLEAN CATCH / Unknown 07/22/2022 19:49 EDT 07/22/2022 19:51 EDT Jossue Lozano MD POINT OF CARE TEST ORDERABLES F inal Result [facility] [address] [place] [address] * POCT CSN BARCODE URINE DIPSTICK (07/22/2022 19:42 EDT) Urine URINE SPECIMEN COLLECTION, CLEAN CATCH / Unknown Urine Collect / Unknown 07/22/2022 19:42 EDT 07/22/2022 19:42 EDT Jossue Lozano MD LAB INFO SERVICE AND SUPPORT & PHONE RESULT Final Result [facility] [address] [place] [address] * LIPASE (07/22/2022 18:31 EDT) Lipase 58 <251 U/L 07/22/2022 19:25 EDT [facility] Blood VENOUS BLOOD / Unknown Venipuncture / Unknown 07/22/2022 18:31 EDT 07/22/2022 18:36 EDT us Jossue Lozano MD CHEMISTRY & BLOOD GAS ORDERABLE S Final Result [facility] [address] [place] [address] * (ABNORMAL) COMPREHENSIVE METABOLIC PANEL (CMP) (07/22/2022 18:31 EDT) Sodium 138 136 - 145 mmol/L 07/22/2022 19:25 [facility] Potassium 3.8 3.5 - 5.0 mmol/L 07/22/2022 19:25 [facility] Chloride 98 96 - 110 mmol/L 07/22/2022 19:25 [facility] CO2 Total 29 22 - 32 mmol/L 07/22/2022 19:25 [facility] Glucose 84 70 - 100 mg/dL 07/22/2022 19:25 [facility] BUN 13 10 - 26 mg/dL 07/22/2022 19:25 [facility] Creatinine 1.26(H) 0.52 - 1.04 mg/dL 07/22/2022 19:25 [facility] eGFR 49(L) >60 mL/min/1.7 3m2 07/22/2022 19:25 [facility] Total Protein 6.6 6.3 - 8.2 g/dL 07/22/2022 19:25 [facility] Albumin 3.8 3.4 - 4.9 g/dL 07/22/2022 19:25 [facility] Alkaline Phosphatase 106 38 - 126 U/L 07/22/2022 19:25 [facility] AST 29 15 - 46 U/L 07/22/2022 19:25 [facility] ALT 13 <35 U/L 07/22/2022 19:25 [facility] Bilirubin, Total 0.8 <1.4 mg/dL 07/22/20 19:25 [facility] Calcium 8.6 8.5 - 10.5 mg/dL 07/22/2022 19:25 [facility] Albumin/Globulin Ratio 1.4 1.0 - 2.5 07/22/2022 19:25 [facility] Anion Gap 11 5 - 14 07/22/2022 19:25 [facility] Blood VENOUS BLOOD / Unknown Venipuncture / Unknown 07/22/2022 18:31 EDT 07/22/2022 18:36 EDT us Jossue Lozano MD CHEMISTRY & BLOOD GAS ORDERABLE S Final Result [facility] [address] [place] [address] * (ABNORMAL) COMPLETE BLOOD COUNT AND DIFFERENTIAL (07/22/2022 18:31 EDT) WBC 4.09 4.00 - 12.40 K/cmm 07/22/2022 20:40 [facility] RBC 3.84(L) 3.86 - 5.04 M/cmm 07/22/2022 20:40 [facility] Hemoglobin 10.6(L) 11.6 - 15.2 gm/dL 07/22/2022 20:40 [facility] HCT 33.6(L) 34.9 - 44.4 % 07/22/2022 20:40 [facility] MCV 88 81 - 98 fl 07/22/2022 20:40 [facility] MCH 27.6 26.7 - 33.3 pg 07/22/2022 20:40 [facility] MCHC 31.5(L) 32.1 - 35.9 gm/dL 07/22/2022 20:40 [facility] RDW-CV 14.8(H) <14.7 % 07/22/2022 20:40 [facility] RDW-SD 47.9 <50.4 fl 07/22/2022 20:40 [facility] PLT 84(L) 141 - 377 K/cmm 07/22/2022 20:40 [facility] MPV 10.4 9.5 - 12.7 fl 07/22/2022 20:40 [facility] % Neutrophils 79.5 % 07/22/2022 20:40 [facility] % Lymphocytes 8.8 % 07/22/2022 20:40 [facility] % Monocytes 10.0 % 07/22/2022 20:40 [facility] % Eosinophils 1.0 % 07/22/2022 20:40 [facility] % Basophils 0.5 % 07/22/2022 20:40 [facility] % Immature Grans 0.2 % 07/22/20 20:40 [facility] Absolute Neutrophils 3.25 2.20 - 8.85 K/cmm 07/22/2022 20:40 [facility] Absolute Lymphocytes 0.36(L) 1.09 - 3.30 K/cmm 07/22/2022 20:40 [facility] Absolute Monocytes 0.41 0.10 - 0.80 K/cmm 07/22/2022 20:40 [facility] Absolute Eosinophils 0.04 0.03 - 0.61 K/cmm 07/22/2022 20:40 [facility] ABS Basophils 0.02 0.01 - 0.11 K/cmm 07/22/2022 20:40 [facility] Absolute Immature Grans 0.01 0.00 - 0.06 K/cm 07/22/2022 20:40 [facility] Type of Differential: Auto 07/22/2022 20:40 [facility] Blood VENOUS BLOOD / Unknown Venipuncture / Unknown 07/22/2022 18:31 EDT 07/22/2022 18:36 EDT us Jossue Lozano MD PACKAGES & DNA PROBE ORDERABLES Final Result [facility] [address] [place] [address] * HOLD SST (07/22/2022 18:31 EDT) Hold Hold 07/22/2022 19:45 EDT [facility] [facility] Blood VENOUS BLOOD / Unknown Venipuncture / Unknown 07/22/2022 18:31 EDT 07/22/2022 18:36 EDT us Fausto Roberts MD LAB INFO SERVICE AND SUPPORT & PHONE RESULT Final Result [facility] [address] [place] [address] * HOLD LAVENDER TOP (07/22/2022 18:31 EDT) Hold Hold 07/22/2022 19:45 EDT [facility] Blood VENOUS BLOOD / Unknown Venipuncture / Unknown 07/22/2022 18:31 EDT 07/22/2022 18:36 EDT us Fausto Roberts MD LAB INFO SERVICE AND SUPPORT & PHONE RESULT Final Result [facility] [address] [place] [address] * HOLD GREEN TOP (07/22/2022 18:31 EDT) Hold Hold 07/22/2022 19:45 EDT [facility] Blood VENOUS BLOOD / Unknown Venipuncture / Unknown 07/22/2022 18:31 EDT 07/22/2022 18:36 EDT us Fausto Roberts MD LAB INFO SERVICE AND SUPPORT & PHONE RESULT Final Result [facility] [address] [place] [address] * HOLD BLUE TOP (07/22/2022 18:31 EDT) Hold Hold 07/22/2022 19:45 EDT [facility] Blood VENOUS BLOOD / Unknown Venipuncture / Unknown 07/22/2022 18:31 EDT 07/22/2022 18:36 EDT Fausto Roberts MD LAB INFO SERVICE AND SUPPORT & PHONE RESULT Final Result [facility] [address] [place] [address] * POCT US ED GUIDANCE PIV (07/22/2022 18:12 EDT) Anatomical Region Laterality Modality Other 07/22/2022 18:1 2 EDT Narrative 07/22/2022 20:24 EDT Study Date and Time: 2022-07-22 18:12 Study Author: Maddie MICHAEL ED Procedural Guidance - PIV: Indications: [...] flush in lumen) ?Comments: N/A Signed by Maddie MICHAEL on 2022-07-22 18:37 Physician Attestation: I reviewed and independently interpreted these images. ??I was present for the brown and critical portions of the ultrasound imaging and agree with or have edited the findings as documented. Final Signature by Fausto ARCHER on 2022-07-22 20:24 Procedure Note Fausto Roberts MD - 07/22/2022 Study Date and Time: 2022-07-22 18:12 Study Author: Maddie MICHAEL ED Procedural Guidance - PIV: Indications: [...] flush in lumen) Comments: N/A Signed by Maddie MICHAEL on 2022-07-22 18:37 Physician Attestation: I reviewed and independently interpreted theseimages. I was present for the brown and critical portions of the ultrasoundimaging and agree with or have edited the findings as documented. Final Signature by Fausto ARCHER on 2022-07-22 20:24 us Fausto Roberts MD IMG POCT US ORDERABLES Final Result * COVID-19 TEST [facility] PCR (07/22/2022 18:02 EDT) Swab ENTIRE NASOPHARYNX / Unknown Swab / Unknown 07/22/2022 18:02 EDT 07/22/2022 18:05 EDT us Fausto Roberts MD MICROBIOLOGY - GENERAL ORDER YANN Final Result [facility] [address] [place] [address] * COVID-19 TESTING (07/22/2022 18:02 EDT) COVID-19 rt-PCR Result Negative Negative 07/22/2022 19:03 EDT [facility] Comment: This test has not [...] history, and epidemiological information. Performed on the [employer]ote GeneXpert Instrument Performing Lab GeneXpert [facility] 07/22/2022 19:03 EDT [facility] Swab ENTIRE NASOPHARYNX / Unknown Swab / Unknown 07/22/2022 18:02 EDT 07/22/2022 18:05 EDT Fausto Roberts MD MICROBIOLOGY - GENERAL ORDER YANN Final Result [facility] [address] [place] [address] * EKG 12-LEAD (07/22/2022 17:16 EDT) 07/22/2022 17:1 6 EDT Narrative [facility] EKG - 08/09/2022 8:36 EDT ?[facility] Emergency ? Test Date: ?2022-07-22 Pat Name: ? PHYLISS BOOTHE ?Department: ?? ED ? Room: ? GT31 Gender: ? Female ? Revit Drafter: ?? [id number] : ?1960 ? Requested By: ROXANNA HERNANDEZ Order Number: [id number] ? Jose PHIPPS: ?? SERENE DIOP MD ? Measurements Intervals ?Hannibal ? Rate: ? 84 ? P: ?48 MO: ? 157 ?QRS: ?56 QRSD: ? 94 ? T: ?37 QT: ? 385 ? QTc: ?457 ? Interpretive Statements SINUS RHYTHM Compared to ECG 06/15/2022 17:27:36 No significant changes I reviewed the tracing and have either agreed or edited the findings in this report. Electronically Signed On 08-09-2022 8:36:44 EDT by SERENE DIOP MD. Procedure Note Serene Diop MD - 08/09/2022 [facility] Test Date: 2022-07-22 Pat Name: TARA BOOTHE Department: ED Room: 31 Gender: Female Revit Drafter: [id number] : 1960 Requested By: ROXANNA HERNANDEZ Order Number: [id number] Reading MD: SERENE DIOP MD Measurements Intervals Hannibal Rate: 84 P: 48 MO: 157 QRS: 56 QRSD: 94 T: 37 QT: 385 QTc: 457 Interpretive Statements SINUS RHYTHM Compared to ECG 06/15/2022 17:27:36 No significant changes I reviewed the tracing and have either agreed or edited the findings inthis report. Electronically Signed On 08-09-2022 8:36:44 EDT by SERENE SKINNER. Fausto Roberts MD CARDIAC ECG ORDERABLES Final Result [facility] EKG documented in this encounter Visit Diagnoses Diagnosis COPD exacerbation ([facility])- Primary Obstructive chronic bronchitis with exacerbation MUSA (acute kidney injury) ([facility]) Acute kidney failure, unspecified Bilateral lower extremity edema Edema documented in this encounter Administered Medications Inactive Administered Medications - up to 3 most recent administrations Medication Order MAR Action Action Date Dose Rate Site acetaminophen (OFIRMEV) IV solution 1,000 mg 1,000 mg, intravenous, NOW X1, 1 dose, On Kirsten 07/22/22 at 1915, Is the patient NPO? If No, state reason why oral acetaminophen cannot be used in Comment field. Yes, Is this patient nothing by rectum? If No, state why rectal acetaminophen cannot be used in the Comment field. Yes, Are NSAIDs contraindicated in this patient? No, Is the patient in ED, PACU or ICU? Yes, STAT Given 07/22/2022 19:42 EDT 1,000 mg furosemide (LASIX) injection 60 mg 60 mg, intravenous, NOW X1, 1 dose, On Kirsten 07/22/22 at 1915, STAT Given 07/22/2022 19:07 EDT 60 mg HYDROmorphone (PF) (DILAUDID) 0.5 mg/0.5 mL syringe 0.5 mg 0.5 mg, intravenous, NOW X1, 1 dose, On Kirsten 07/22/22 at 1915, STAT Given 07/22/2022 19:08 EDT 0.5 mg ipratropium-albuteroL (DUONEB) 0.5 mg-3 mg(2.5 mg base)/3 mL nebulizer solution 3 mL 3 mL, nebulization, NOW X1, 1 dose, On Kirsten 07/22/22 at 1915, STAT Given 07/22/2022 19:46 EDT 3 mL ketOROLAC (TORADOL) injection 15 mg 15 mg, intravenous, NOW X1, 1 dose, On Kirsten 07/22/22 at 1915, STAT Given 07/22/2022 19:08 EDT 15 mg ondansetron (PF) (ZOFRAN) injection 4 mg 4 mg, intravenous, NOW X1, 1 dose, On Kirsten 07/22/22 at 1915, STAT Given 07/22/2022 19:07 EDT 4 mg documented in this encounter Discontinued Medications Medication Sig Discontinue Reason Start Date End Da te furosemide (LASIX) 20 mg tabletIndications:Bilate ral lower extremity edema Take 2 Tablets by mouth daily. Until seen by PCP. Reorder 06/18/2022 07/22/2022 documented as of this encounter Active and Recently Administered Medications Times are shown in EDT. Scheduled Medication Order 07/20/2022 07/21/2022 07/22/2022 acetaminophen (OFIRMEV) IV solution 1,000 mg (COMPLETED) 1,000 mg, intravenous, NOW X1, 1 dose, On Kisrten 07/22/22 at 1915, Is the patient NPO? If No, state reason why oral acetaminophen cannot be used in Comment field. Yes, Is this patient nothing by rectum? If No, state why rectal acetaminophen cannot be used in the Comment field. Yes, Are NSAIDs contraindicated in this patient? No, Is the patient in ED, PACU or ICU? Yes, STAT 1941 (Given - Provid er: Zully Pate RN)1956 (Completed - Provider: Zully Pate RN) furosemide (LASIX) injection 60 mg (COMPLETED) 60 mg, intravenous, NOW X1, 1 dose, On Kirsten 07/22/22 at 1915, STAT 1907 (Given - Provid er: Zully Pate RN) HYDROmorphone (PF) (DILAUDID) 0.5 mg/0.5 mL syringe 0.5 mg (COMPLETED) 0.5 mg, intravenous, NOW X1, 1 dose, On Kirsten 07/22/22 at 1915, STAT 1908 (Given - Provid er: Zully Pate RN) ipratropium-albuteroL (DUONEB) 0.5 mg-3 mg(2.5 mg base)/3 mL nebulizer solution 3 mL (COMPLETED) 3 mL, nebulization, NOW X1, 1 dose, On Kirsten 07/22/22 at 1915, STAT 1946 (Given - Provid er: Zully Pate RN) ketOROLAC (TORADOL) injection 15 mg (COMPLETED) 15 mg, intravenous, NOW X1, 1 dose, On Kirsten 07/22/22 at 1915, STAT 190 (Given - Provid er: Zully Pate RN) ondansetron (PF) (ZOFRAN) injection 4 mg (COMPLETED) 4 mg, intravenous, NOW X1, 1 dose, On Kirsten 07/22/22 at 1915, STAT 190 (Given - Provid er: Zully Pate RN) documented in this encounter Additional Health Concerns Infection Onset Date Last Indicated Resolved Time R/O COVID-19 07/22/2022 07/22/2022 2022 22:1 5 EDT documented as of this encounter Care Teams Baseball Coach Relationship Specialty Start Date End Date Emigdio Veronica MD [address] [place] [phone] PCP - General Internal Medicine - Primary Care 05/22/20 02/21/24 documented as of this encounter
--- OUTSIDE RECORDS SUMMARY | 2024-11-22 17:02 | XMS_ITS | Encounter Summary ---
Author Organization [facility] Address [address] [place] [address] Care Team Providers Care Vibrating Screen Operator Name Role Phone Emigdio Veronica MD Primary Care Provider + Izabella Snowden [facility] Unavailable None, Provider Primary Care Provider Gabriel Wei Primary Care Provider Mirna Guerrero Primary Care Provider + Reason for Visit * Reason Comments Other Encounter Details Date Type Department Care Team (Late st Contact Info) Description 06/23/2022 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 INCRUSE ELLIPTA 62.5 mcg/actuation [Pharmacy Med Name: INCRUSE ELLIPTA 62.5 MCG INH] 30 Each Sig: INHALE 1 PUFF BY MOUTH DIRECTED DAILY [id number] - [place], [address] Confirmed Pharmacy? Yes Patient out of medication? Unknown Last Refill Date: 05/20/22 Refills left? (explain exceptions requiring early refill) No Recent Visits Date Type Provider Dept 05/20/22 Office Visit Nguyen Nolasco NP [facility] 02/17/22 Office Visit Emigdio Veronica MD [facility] 02/10/22 Office Visit Darlene Rollins NP [facility] 01/27/22 Office Visit Osmany Matthews MD [facility] 11/25/21 Office Visit Emigdio Veronica MD [facility] 11/11/21 Office Visit Scottie Campuzano PA-C [facility] 10/20/21 Office Visit Emigdio Veronica MD [facility] 10/08/21 Office Visit Emigdio Veronica MD [facility] 09/18/21 Office Visit Scottie Campuzano PA-C [facility] 07/22/21 Office Visit Scottie Campuzano PA-C [facility] Showing recent visits within past 540 days with a meds authorizing provider and meeting all other requirements Future Appointments Date Type Provider Dept 06/25/22 Appointment Emigdio Veronica MD [facility] 08/11/22 Appointment Emigdio Veronica MD [facility] Showing future appointments within next 150 days with a meds authorizing provider and meeting all other requirements Future appointment: Already Scheduled FATOUMATA FOWLER RN 06/23/2022 9:17 documented in this encounter Plan of Treatment Upcoming Encounters Date Type Department Care Team (Late st Contact Info) Description 01/04/2025 13:00 EST Office Visit [facility] Ophthalmology - [address] [phone] Gagandeep Rome MD [address] [place] [address] [address] [place] [address] 02/11/2025 13:[address] [facility] Hematology & Oncology [address] [phone] Dana Padilla MD [address] [place] [address] [address] [place] [phone] documented as of this encounter Visit Diagnoses Diagnosis Chronic obstructive pulmonary disease, unspecified COPD type (HCC-CMS) documented in this encounter Discontinued Medications Medication Sig Discontinue Reason Start Date End Da te umeclidinium (INCRUSE ELLIPTA) 62.5 mcg/actuationIndications :Chronic obstructive pulmonary disease, unspecified COPD type (HCC-CMS) Inhale 1 Puff as directed daily. 05/20/2022 06/23/2022 documented as of this encounter Additional Health Concerns Infection Onset Date Last Indicated Resolved Time R/O COVID-19 07/22/2022 07/22/2022 2022 22:1 5 EDT R/O COVID-19 12/14/2022 12/14/2022 12/14/2022 9:10 EST R/O COVID-19 02/23/2023 02/23/2023 02/23/2023 7:15 EDT R/O COVID-19 04/28/2023 04/28/2023 04/29/2023 0:02 EDT R/O COVID-19 09/07/2023 09/07/2023 09/07/2023 22:1 6 EDT documented as of this encounter Care Teams Vibrating Screen Operator Relationship Specialty Start Date End Date Emigdio Veronica MD [address] [place] [phone] PCP - General Internal Medicine - Primary Care 05/22/20 02/21/24 None, Provider PCP - General 02/24/24 03/18/24 Gabriel Gandara PA PCP - General 03/19/24 09/11/24 Mirna Guerrero PA [address] [place] [address] PCP - General 09/12/24 Izabella Snowden LICSW 1 [facility], [address] [place] [phone] Weigher Operator 02/21/23 05/03/24 documented as of this encounter
--- OUTSIDE RECORDS SUMMARY | 2024-11-22 17:02 | XMS_ITS | Encounter Summary ---
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 Signed * Telephone Encounter - Noemi Hall - 07/15/2022 0743 EDT Reason for Call: Medication Management Summary/Symptoms: received call from [facility]. Insurance will not pay for the olopatadine. They are inquiring if ok to substitute ketotifen documented in this encounter Plan of Treatment Upcoming Encounters Date Type Department Care Team (Late st Contact Info) Description 01/04/2025 13:00 EST Office Visit [facility] Ophthalmology - [address] [address] Gagandeep Rome MD [address] [facility], [address] [place] [address] 02/11/2025 13:30 EDT Telemedicine [facility] Hematology & Oncology - [facility] [address] [place] [address] Dana Padilla MD [address] [facility], [address] [place] [address] documented as of this encounter Visit Diagnoses Not on filedocumented in this encounter Discontinued Medications Medication Sig Discontinue Reason Start Date End Da te olopatadine (PATADAY) 0.2 % ophthalmic solutionIndications:Allerg ic conjunctivitis and rhinitis, unspecified laterality PLACE 1 DROP INTO BOTH EYES DAILY NEEDED FOR ALLERGIES. Alternate therapy 07/14/2022 07/15/2022 documented as of this encounter Additional Health Concerns Infection Onset Date Last Indicated Resolved Time R/O COVID-19 07/22/2022 07/22/2022 2022 22:1 5 EDT documented as of this encounter Care Teams Post Anesthesia Nurse Relationship Specialty Start Date End Date Emigdio Veronica MD [address] [place] [address] PCP - General Internal Medicine - Primary Care 05/22/20 02/21/24 documented as of this encounter
--- OUTSIDE RECORDS SUMMARY | 2024-11-22 17:02 | XMS_ITS | Encounter Summary ---
Author Organization [facility] Address [address] [place] [address] Care Team Providers Care Cns Name Role Phone Emigdio Veronica MD Primary Care Provider + Reason for Visit * Reason Onset Date Comments Appointment Related 07/23/2022 Encounter Details Date Type Department Care Team (Late st Contact Info) Description 07/23/[address] 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 (5 years old or older) Answer Entry Date Author No 06/16/2022 0:00 EDT Soila Murphy RN documented in this encounter Miscellaneous Notes * Telephone Encounter - Janeth Burns - 07/23/2022 1412 EDT Ebony from referring office called and said she was sending information to the in basket to get questions answered about patients sleep study documented in this encounter Plan of Treatment Upcoming Encounters Date Type Department Care Team (Late st Contact Info) Description 01/04/2025 13:[address] [facility] Ophthalmology - [address] [phone] Gagandeep Rome MD [address] [place] [address] [address] [place] [phone] 02/11/2025 13:30 EDT Telemedicine [facility] Hematology & Oncology - [address] [phone] Dana Padilla MD [address] [place] [address], [facility] [address] [place] [phone] documented as of this encounter Visit Diagnoses Not on filedocumented in this encounter Additional Health Concerns Infection Onset Date Last Indicated Resolved Time R/O COVID-19 07/22/2022 07/22/2022 2022 22:1 5 EDT documented as of this encounter Care Teams Cns Relationship Specialty Start Date End Date Emigdio Veronica MD [address] [place] [phone] PCP - General Internal Medicine - Primary Care 05/22/20 02/21/24 documented as of this encounter
--- OUTSIDE RECORDS SUMMARY | 2024-11-22 17:02 | XMS_ITS | Encounter Summary ---
Author Organization [facility] Address [address] [place] [address] Care Team Providers Care Shank Archer Name Role Phone Emigdio Veronica MD Primary Care Provider + Reason for Visit * Reason Comments Memory Loss see nurses note Encounter Details Date Type Department Care Team (Latest Contact Info) Description 07/16/2022 11:00 EDT Office Visit [facility] [place] [address] [place] [address] Scottie Campuzano PA-C [address] [place] [address] Other fatigue (Primary Dx); Other specified hypothyroidism Social History Tobacco Use Types Packs/Day Years Used Date Smoking Tobacco: Some Days Cigarettes 0.3 35 Smokeless Tobacco: Never Tobacco Cessation:Ready to Q uit: No; Counseling Given: No Comments:smokes couple times a week [...] 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 female. Chief Complaint Patient presents with ??? Memory Loss see nurses note HPI Gena is seen today because of severe fatigue. She tells me that she is utterly, completely exhausted. And yet, she says she has trouble resting and sleeping at night. She says that when she lays down, she tends to worry. Also, she has chronic pain. She has a sleep test scheduled for the near future. Interestingly, she tells me that it will be done at the [facility] in July. However, in the [facility] system [facility] Patient Active Problem List Diagnosis ??? Pancytopenia [...] of breath ??? Hypoxemia ??? COPD exacerbation (HCC-CMS) (HCC) Outpatient Medications Marked as Taking for the 07/16/22 encounter (Office Visit) with Scottie Campuzano PA-C [...] daily before breakfast. 90 Tablet 1 ??? naloxone (NARCAN) 4 mg/actuation nasal spray 0.1 mL by nasal route as needed for Opioid Reversal. Repeat every 2-3 minutes if not effective and overdose is suspected. (spray is harmless in excess). 1 Each 1 ??? ondansetron (ZOFRAN) 4 mg tablet Take 1 Tablet by mouth every 8 hours as needed for Nausea. 30 Tablet 1 ??? oxyCODONE (ROXICODONE) 5 [...] 0 ROS - See HPI Objective: BP 109/53 (BP Cuff Location: Left arm, BP Patient Position: Sitting, BP Cuff Sizes: Adult, regular) Pulse 80 Comment: reg Temp 36.4 ??C (97.5 ??F) (Tympanic) Resp 14 Comment: reg Ht 162.6 cm (64) BMI 41.71 kg/m?? Physical Exam Gena appears to be very tired. She is awake however, and lucid. Her mood depressed. Affect congruent. Normal thought content. Assessment / Plan: Encounter Diagnoses Name Primary? Other fatigue Yes ??? Other specified hypothyroidism Gena is clearly exhausted. Her exhaustion is probably multifactorial, but she does have known sleep apnea and clearly needs a sleep test and CPAP (or BiPAP) as soon as possible. I will also have her repeat B12 and thyroid studies, as they have not been done for a year or more. At the end of today's visit, she asked me for some Xanax. I told her that I cannot prescribe controlled substances for her, that she would need to ask her primary care physician for any medications that are considered to be controlled. Tara was seen today for memory loss. Diagnoses and all orders for this visit: Other fatigue Other specified hypothyroidism Scottie Campuzano PA-C Next appt at [facility] Office: 08/11/2022 07/16/2022 11:39 documented in this encounter Plan of Treatment Upcoming Encounters Date Type Department Care Team (Late st Contact Info) Description 01/04/2025 13:00 EST Office Visit [facility] - [address] [phone] Gagandeep Rome MD 111 [facility], [address] [place] [phone] 02/11/2025 13:[address] [facility] Hematology & Oncology - [address] [phone] Dana Padilla MD 111 [facility] 2 [place] [address] documented as of this encounter Results * THYROID CASCADE (07/28/2022 16:03 EDT) TSH 2.68 0.47 - 4.68 mIU/L 07/28/2022 17:51 EDT [facility] Blood VENOUS BLOOD / Unknown Venipuncture / Unknown 07/28/2022 16:03 EDT 07/28/2022 16:03 EDT Narrative [facility] - 07/28/2022 17:51 EDT NOTE: The results of this assay can be falsely lowered due to the consumption of Biotin. Scottie Campuzano PA-C CHEMISTRY & B LOOD GAS ORDERABLES Final Result [facility] [address] [place] [address] * VITAMIN B12 (07/28/2022 16:03 EDT) Vitamin B12 386 211 - 911 pg/mL 07/28/2022 20:24 EDT [facility] Blood VENOUS BLOOD / Unknown Venipuncture / Unknown 07/28/2022 16:03 EDT 07/28/2022 16:03 EDT Scottie Campuzano PA-C CHEMISTRY & B LOOD GAS ORDERABLES Final Result [facility] [address] [place] [address] documented in this encounter Visit Diagnoses Diagnosis Other fatigue- Primary Other specified hypothyroidism documented in this encounter Care Teams Shank Archer Relationship Specialty Start Date End Date Emigdio Veronica MD [address] [place] [address] PCP - General Internal Medicine - Primary Care 05/22/20 02/21/24 documented as of this encounter
--- OUTSIDE RECORDS SUMMARY | 2024-11-22 17:02 | XMS_ITS | Encounter Summary ---
Author Organization [facility] Address [address] [place] [address] Care Team Providers Care Volunteer Services Manager Name Role Phone Emigdio Veronica MD Primary Care Provider + Reason for Visit * Reason Onset Date Comments Leg Swelling 07/22/2022 Weight Gain 07/22/2022 Shortness of Breath 07/22/2022 Encounter Details Date Type Department Care Team (Late st Contact Info) Description 07/22/2022 Telephone [facility] Adult [facility] - [facility] [address] [place] [address] Emigdio Veronica MD [address] [place] [address] Leg Swelling; Weight Gain; Shortness of Breath Social History Tobacco Use [...] Industry 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 Has been feeling unwell for the past 4-5 days. Feels like when she was admitted for COPD exacerbation in May. Legs and feet are swollen. Reports 11lb weight gain in the last week. Short of breath, worse than in May. No cough. Worse with exertion. Does not have a way to measure O2 sats at home. Talking comfortably throughout call. Uses home oxygen at night and as needed during the day Had a fever Tuesday shad, to 100.4. None since. Has been compliant with medications and has not been eating much salt. Advised since she is feeling worse than when she was admitted to the hospital in May, she should go to ED for eval. She was amenable to this and will call around to find a ride. Advised she call 911if she is suddenly feeling worse, but as she was able to talk comfortably during our call finding aride is appropriate. Called ED triage with report. ALEXANDER IGLESIAS RN 07/22/2022 13:57 * Telephone Encounter - Cris Copeland - 07/22/2022 1230 EDT Reason for Call: Leg Swelling, Weight Gain, and Shortness of Breath Summary/Symptoms: Pt states she was to call back in if she gained over 3lbs. States in the past week she has gain 11lbs of fluid weight. Legs swollen, feet swollen. Starting to feel occasional SOB, wondering if fluid is retaining in her chest again? Onset and Duration: week Does the patient have a computer, laptop or smart phone with high speed & video capability? N/A If so, would they be interested in doing a video visit via Zoom? N/A Appointment Offered? No Cris Copeland 07/22/2022 12:33 documented in this encounter Plan of Treatment Upcoming Encounters Date Type Department Care Team (Late st Contact Info) Description 01/04/2025 13:00 EST Office Visit [facility] Ophthalmology - [address] [phone] Gagandeep Rome MD [address] [place] [address], [facility] 5 [place] [phone] 02/11/2025 13:30 EDT Telemedicine [facility] Hematology & Oncology - [address] [phone] Dana Padilla MD [address] [place] [address], [facility] 2 [place] [phone] documented as of this encounter Visit Diagnoses Not on filedocumented in this encounter Care Teams Volunteer Services Manager Relationship Specialty Start Date End Date Emigdio Veronica MD [address] [place] [phone] PCP - General Internal Medicine - Primary Care 05/22/20 02/21/24 documented as of this encounter
--- OUTSIDE RECORDS SUMMARY | 2024-11-22 17:02 | XMS_ITS | Encounter Summary ---
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 Please get in touch with the office if you have any questions or concerns! Scottie documented in this encounter Plan of Treatment Upcoming Encounters Date Type Department Care Team (Late st Contact Info) Description 01/04/2025 13:00 EST Office Visit [facility] Ophthalmology - [address] [phone] Gagandeep Rome MD [address] [place] [address], [facility] 5 [place] [address] 02/11/2025 13:30 EDT Telemedicine [facility] Hematology & Oncology - [address] [phone] Dana Padilla MD [address] [place] [address], [facility] 2 [place] [phone] documented as of this encounter Procedures Procedure Name Priority Date/Time Associated Diagnosis Comments THYROID CASCADE Routine 07/28/2022 16:03 EDT Other specified hypothyroidism VITAMIN B12 Routine 07/28/2022 16:03 EDT Other fatigue BASIC METABOLIC PANEL (BMP) Routine 07/28/2022 16:03 EDT Elevated serum creatinine documented in this encounter Results * (ABNORMAL) BASIC METABOLIC PANEL (BMP) (07/28/2022 16:03 EDT) Sodium 139 136 - 145 mmol/L 07/28/2022 17:24 [facility] Potassium 3.8 3.5 - 5.0 mmol/L 07/28/2022 17:24 [facility] Chloride 99 96 - 110 mmol/L 07/28/2022 17:24 [facility] CO2 Total 25 22 - 32 mmol/L 07/28/2022 17:24 [facility] Anion Gap 15(H) 5 - 14 07/28/2022 17:24 [facility] Glucose 121(H) 70 - 100 mg/dL 07/28/2022 17:24 [facility] Calcium 8.9 8.5 - 10.5 mg/dL 07/28/2022 17:24 [facility] BUN 14 10 - 26 mg/dL 07/28/2022 17:24 [facility] Creatinine 0.99 0.52 - 1.04 mg/dL 07/28/2022 17:24 [facility] eGFR 64 >60 mL/min/1.73 m2 07/28/2022 17:24 [facility] Blood VENOUS BLOOD / Unknown Venipuncture / Unknown 07/28/2022 16:03 EDT 07/28/2022 16:03 EDT us Emigdio Veronica MD CHEMISTRY & BLOOD GAS OR DERABLES Final Result [facility] [address] [place] [address] * THYROID CASCADE (07/28/2022 16:03 EDT) TSH 2.68 0.47 - 4.68 mIU/L 07/28/2022 17:51 EDT [facility] Blood VENOUS BLOOD / Unknown Venipuncture / Unknown 07/28/2022 16:03 EDT 07/28/2022 16:03 EDT Narrative [facility] - 07/28/2022 17:51 EDT NOTE: The results of this assay can be falsely lowered due to the consumption of Biotin. us Scottie Campuzano PA-C CHEMISTRY & B LOOD GAS ORDERABLES Final Result Performing Organization Address City/[facility]/ZIP Co de Phone Number [facility] [address] [place] [address] * VITAMIN B12 (07/28/2022 16:03 EDT) Vitamin B12 386 211 - 911 pg/mL 07/28/2022 20:24 EDT [facility] Blood VENOUS BLOOD / Unknown Venipuncture / Unknown 07/28/2022 16:03 EDT 07/28/2022 16:03 EDT Scottie Campuzano PA-C CHEMISTRY & B LOOD GAS ORDERABLES Final Result Performing Organization Address City/[facility] Co de Phone Number [facility] [address] [place] [address] documented in this encounter Visit Diagnoses Diagnosis Other fatigue Other specified hypothyroidism Elevated serum creatinine Other nonspecific findings on examination of blood documented in this encounter Care Teams Community Organization Director Relationship Specialty Start Date End Date Emigdio Veronica MD [address] [place] [phone] PCP - General Internal Medicine - Primary Care 05/22/20 02/21/24 documented as of this encounter
--- OUTSIDE RECORDS SUMMARY | 2024-11-22 17:02 | XMS_ITS | Encounter Summary ---
Author Organization [facility] Address [address] [place] [address] Care Team Providers Care Animal Herder Name Role Phone Emigdio Veronica MD Primary Care Provider + Izabella Snowden [facility] Unavailable [phone] None, Provider Primary Care Provider Gabriel Wei Primary Care Provider Mirna Guerrero Primary Care Provider + Reason for Visit * Reason Comments Other Encounter Details Date Type Department Care Team (Late st Contact Info) Description 07/14/2022 [facility] - [place] [address] [place] [address] Nguyen Nolasco, CANOE INSPECTOR FINAL 111 [facility], Level [address] [place] [address] Other Social History Tobacco Use [...] 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 2.5 mL 2 07/14/2022 documented in this encounter Miscellaneous Notes * Telephone Encounter - Donya Jacob RN - 07/14/2022 1440 EDT Medication(s) Requested: Olopatadine ophthalmic solution Preferred Pharmacy: [facility] Is patient out of medication? Unknown Last Refill Date: 04/23/22 Last Visit Date with Ordering Provider: 06/25/22 Next Non-Acute Visit Date Scheduled with Care Team: Yes. 08/11/22 DONYA JACOB RN 07/14/2022 14:43 documented in this encounter Plan of Treatment Upcoming Encounters Date Type Department Care Team (Late st Contact Info) Description 01/04/2025 13:00 EST Office Visit [facility] Ophthalmology - [address] [phone] Gagandeep Rome MD [address] [place] [address], [address] [place] [phone] 02/11/2025 13:30 EDT Telemedicine [facility] Hematology & Oncology - [facility] [address] [place] [address] Dana Padilla MD 111 [facility], Level [address] [place] [phone] documented as of this encounter Visit Diagnoses Diagnosis Allergic conjunctivitis and rhinitis, unspecified laterality documented in this encounter Discontinued Medications Medication Sig Discontinue Reason Start Date End Da te olopatadine (PATADAY) 0.2 % ophthalmic solutionIndications:Allerg ic conjunctivitis and rhinitis, unspecified laterality Place 1 Drop into both eyes daily as needed for Allergies. 05/20/2022 07/14/2022 documented as of this encounter Additional Health Concerns Infection Onset Date Last Indicated Resolved Time R/O COVID-19 07/22/2022 07/22/2022 2022 22:1 5 EDT R/O COVID-19 12/14/2022 12/14/2022 12/14/2022 9:10 EST R/O COVID-19 02/23/2023 02/23/2023 02/23/2023 7:15 EDT R/O COVID-19 04/28/2023 04/28/2023 04/29/2023 0:02 EDT R/O COVID-19 09/07/2023 09/07/2023 09/07/2023 22:1 6 EDT documented as of this encounter Care Teams Animal Herder Relationship Specialty Start Date End Date Emigdio Veronica MD [address] [place] [phone] PCP - General Internal Medicine - Primary Care 05/22/20 02/21/24 None, Provider PCP - General 02/24/24 03/18/24 Gabriel Gandara PA PCP - General 03/19/24 09/11/24 Mirna Guerrero PA [address] [place] [address] PCP - General 09/12/24 Izabella Snowden LICSW 1 [facility], 3rd [place] [address] Catering And Events Manager 02/21/23 05/03/24 documented as of this encounter
--- OUTSIDE RECORDS SUMMARY | 2024-11-22 17:02 | XMS_ITS | Encounter Summary ---
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 Did not hit head. States nightstand fell on her Hurts from fall Pain can take her breath away Was using 02 only at night before . Since 3 wks ago when discharged she has started using 02 duringday Using 2 L during day and night.. pulse 0x not working so not able to use Memory change has been over past few days States she is so embarrassed and ends up tears Happening multiple times a day Not forgetting who she is talking to, but is forgetting what is talking about Will forget why she went into a room No New onset weakness. Smile symmetrical. No chest pain Scheduled with merline for tomorrow AM The patient indicates understanding of these issues and agrees with the plan. Will get a ride to appt HEIKE ROSADO RN 07/15/2022 15:18 * Telephone Encounter - Ebony Toscano - 07/15/2022 0956 EDT Pt calling again today regarding memory loss. * Telephone Encounter - Cris Copeland - 07/14/2022 1439 EDT Reason for Call: Memory Loss Summary/Symptoms: Pt states she was advised to report if anything strange happens regarding memory. States that had been fine, but the last 3-4 days notes that she can't remember anything. Mid conversation goes blank Hasn't been sleeping much Onset and Duration: 3-4 days Does the patient have a computer, laptop or smart phone with high speed & video capability? N/A If so, would they be interested in doing a video visit via Zoom? N/A Appointment Offered? Nikki Copeland 07/14/2022 14:40 documented in this encounter Plan of Treatment Upcoming Encounters Date Type Department Care Team (Late st Contact Info) Description 01/04/2025 13:00 EST Office Visit [facility] Ophthalmology - [address] [phone] Gagandeep Rome MD [address] [place] [address], [facility] 5 [place] [phone] 02/11/2025 13:30 EDT Telemedicine [facility] Hematology & Oncology - [address] [phone] Dana Padilla MD [address] [place] [address], [facility] 2 [place] [address] documented as of this encounter Visit Diagnoses Not on filedocumented in this encounter Care Teams Logging Assistant Relationship Specialty Start Date End Date Emigdio Veronica MD [address] [place] [phone] PCP - General Internal Medicine - Primary Care 05/22/20 02/21/24 documented as of this encounter
--- OUTSIDE RECORDS SUMMARY | 2024-11-22 17:02 | XMS_ITS | Encounter Summary ---
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 Yes some but not feeling a whole long Discharge instructions available? yes Medications Reviewed/prescriptions filled? yes Support at home? no - not needed Home health service/issues? no - not needed Questions about discharge instructions? no Follow-up visit scheduled? yes Education/Plan: pt to come in to clinic 06/25 and get labs drawn prior FATOUMATA FOWLER RN 06/21/2022 * Telephone Encounter - Jes Mayorga RN - 06/21/2022 0939 EDT Patient hospitalized for acute on Chronic Hypoxia risk of readmission 96% Needs hospital follow up call. documented in this encounter Plan of Treatment Upcoming Encounters Date Type Department Care Team (Late st Contact Info) Description 01/04/2025 13:00 EST Office Visit [facility] Ophthalmology - [address] [phone] Gagandeep Rome MD [address] [place] [address], [facility] 5 [place] [address] 02/11/2025 13:30 EDT Telemedicine [facility] Hematology & Oncology [address] [phone] Dana Padilla MD [address] [place] [address], [facility] 2 [place] [address] documented as of this encounter Visit Diagnoses Not on filedocumented in this encounter Care Teams Supervisor Lens Generating Relationship Specialty Start Date End Date Emigdio Veronica MD 2 [place] [address] PCP - General Internal Medicine - Primary Care 05/22/20 02/21/24 documented as of this encounter
--- OUTSIDE RECORDS SUMMARY | 2024-11-22 17:02 | XMS_ITS | Encounter Summary ---
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 Spoke with patient about how she has been doing since discharge. She noted that she has swelling that comes and goes. She is checking her weights every day. Patient reports losing weight, but not gaining, and notes feeling of palpitations. She has been doing well with lowering the salt in her diet; she's not adding as much at the table and is cooking more from scratch. The heart failure folder has been helpful for learning how to read food labels. Patient is also starting to slowly get back into walking with her dog.Patient reported taking her medications as prescribed. She noted that her family is a big part of her motivation to make these changes. Reviewed heart failure follow-up appointment; patient expressed anxiety about her appointment and reassurance given. Patient requested continued health coaching check-in calls, and I will happily try her again in 2 weeks' time. documented in this encounter Plan of Treatment Upcoming Encounters Date Type Department Care Team (Late st Contact Info) Description 01/04/2025 13:00 EST Office Visit [facility] Ophthalmology - [address] [phone] Gagandeep Rome MD [address] [place] [address], [facility] 5 [place] [phone] 02/11/2025 13:30 EDT Telemedicine [facility] Hematology & Oncology [address] [phone] Dana Padilla MD [address] [place] [address], [facility] 2 [place] [phone] documented as of this encounter Visit Diagnoses Not on filedocumented in this encounter Care Teams Scrap Metal Collector Relationship Specialty Start Date End Date Emigdio Veronica MD 2 [place] [phone] PCP - General Internal Medicine - Primary Care 05/22/20 02/21/24 documented as of this encounter
--- OUTSIDE RECORDS SUMMARY | 2024-11-22 17:02 | XMS_ITS | Encounter Summary ---
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 Not [...] * Telephone Encounter - Janeth Burns - 06/23/2022 1501 EDT Called pt from wait list to schedule an earlier sleep study, patient declined documented in this encounter Plan of Treatment Upcoming Encounters Date Type Department Care Team (Late st Contact Info) Description 01/04/2025 13:00 EST Office Visit [facility] Ophthalmology - [address] [phone] Gagandeep Rome MD [address] [place] [address] 5 [place] [phone] 02/11/2025 13:30 EDT Telemedicine [facility] Hematology & Oncology - [address] [phone] Dana Padilla MD [address] [place] [address], [facility] 2 [place] [phone] documented as of this encounter Visit Diagnoses Not on filedocumented in this encounter Care Teams Rail Car Unloader Relationship Specialty Start Date End Date Emigdio Veronica MD 2 [place] [phone] PCP - General Internal Medicine - Primary Care 05/22/20 02/21/24 documented as of this encounter
--- OUTSIDE RECORDS SUMMARY | 2024-11-22 17:02 | XMS_ITS | Encounter Summary ---
Author Organization [facility] Address [address] [place] [address] Care Team Providers Care Electronics Design Engineer Name Role Phone Emigdio Veronica MD Primary Care Provider + Reason for Visit * Reason Comments Hospital Discharge Follow Up feeling SOB , can't sleep Encounter Details Date Type Department Care Team (Late st Contact Info) Description 06/25/2022 14:30 EDT Office Visit [facility] Adult Primary Care - [address] [place] [address] Emigdio Veronica MD [address] [place] [phone] Shortness of breath (Primary Dx); Chronic respiratory failure with hypoxia (HCC-CMS) (HCC); Stage 2 chronic kidney disease; Other hypervolemia; Other cirrhosis of liver (HCC) (HCC-CMS); Chronic pain syndrome; Healthcare maintenance Social History Tobacco Use Types Packs/Day Years Used Date Smoking Tobacco: Some Days Cigarettes 0.3 35 Smokeless Tobacco: Never Tobacco Cessation:Ready to Q uit: Yes; Counseling Given: Yes Comments:no cigarette x2 weeks Alcohol Use Standard Drinks/Week Comments No 0 [...] 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 No / Unsure 06/15/2022 17:19 EDT documented as of this encounter Last Filed Vital Signs Vital Sign Reading Time Taken Comments Blood Pressure 108/55 06/25/2022 1420 EDT Pulse 79 06/25/2022 1420 EDT r Temperature 36.4 ??C (97.5 ??F) 06/25/2022 1420 EDT Respiratory Rate 16 06/25/2022 1420 EDT Oxygen Saturation 96% 06/25/2022 1420 EDT on room air Inhaled Oxygen Concentration - - Weight 109.7 kg (241 lb 12. 8 oz) 06/25/2022 1420 EDT Height - - Body Mass Index 41.5 06/15/2022 1718 EDT documented in this encounter [...] Instructions * Patient Instructions* Ashley Weems - 06/25/2022 14:30 EDT Quitting smoking Stopping smoking is the [...] with a trained counselor. Tobacco Counseling in [facility] offers free counseling services to residents who are ready to cut back or quit using tobacco. Services include: phone coaching (0-117-ZYTX-NOW), online tools and support for those who would like to make changes on their own (www.[employer].org), as well as in-person group workshops. Free nicotine replacement therapy is available through all of these resources. To learn more about your options visit www.[employer].org or call 2-699-TJOP-NOW ( ). To speak with an in-person tobacco counselor in [facility] call, [phone]. [place] Resident, please visit: [email or web address] I hope you quit smoking. I think it's the best thing you can do for your health. Please call our office if you have any questions. DASH diet and mediterranean diet documented in this encounter Ordered Prescriptions Prescription Sig Dispense Quantity Refills Last Filled Start Date End Date lidocaine 5 % (LIDODERM) 5 % patch Place 1 Patch onto the skin daily. Patch(es) may remain in place for up to 12 hours in any 24-hour period. 30 Patch 06/25/2022 06/25/2022 documented in this encounter Progress Notes * Emigdio Veronica MD - 06/25/2022 1430 EDT Tara uYn is a 61 y.o. female with a PMHx of COPD, thrombocytopenia, splenic vein thrombosis,chronic pain syndrome, cirrhosis secondary to fatty liver PRIMARY CARE PROVIDER: Emigdio Veronica CHIEF COMPLAINT: Transition of Care Follow-up SUBJECTIVE: Tara Yun presents today for a transition of care follow-up. Patient was discharged from: [facility] Date of discharge: 06/18/2022 Reason for hospitalization: Acute on chronic hypoxic respiratory failure Documentation of call/MyHealth encounter within 48 business hours of discharge or documentation of two failed attempts if unable to reach patient: Yes Date of interactive contact and/or dates of two failed attempts to contact patient: 06/21/2022 I have obtained and reviewed the Discharge Summary: Yes Today Gena appears well. She reports that since her most recent discharge from [facility] for dyspneaher breathing has felt stable. Her respiratory failure was believed to be multifactorial on a recent admission she was discharged on prednisone burst for presumed COPD exacerbation as well as had herdiuretic dosage titrated for volume overload. Per her inpatient team her volume overload status secondary to HFpEF despite a normal BNP. Her last echocardiogram was performed in April of this year anddemonstrated a hyperdynamic left ventricular systolic function with an estimated EF 67%. She also has known decompensated cirrhosis secondary to NAFLD. On discharge she was referred by the inpatient jeramie raya to establish care with outpatient cardiology. She states on admission her her weight was recorded at over 250 pounds. She conceded to her inpatient team that she has not been very adherent to a salt restricted diet at home. Since discharge she has returned to daily furosemide at 40 mg daily and has escalated her spironolactone dosage to 100 mgdaily despite being advised with this office to only increase to 75 mg daily. Despite the the more aggressive diuretic regiment her last BMP reflects stable kidney function with a GFR of 60 and a normal potassium level of 4.1. Her weight today was noted to be 241 pounds. She confirms she has completed her steroid taper for COPD. She continues to note diffuse back, abdominal [...] her back pain with the use of [id number] lidocaine patches in the past. She has not tried a topical diclofenac gel for her arthritic pain previously. She states she is doing her best to a salt restricted diet but notes it is difficult as much of thefoods that she likes to eat contain high levels of salt. We discussed low-salt diet such as the DASH diet and Mediterranean diet in depth today. ROS as above Medications and history reviewed. Current Outpatient Medications Medication ??? albuterol 90 mcg/actuation inhaler ??? chlorzoxazone (PARAFON FORTE) 500 mg tablet ??? diclofenac sodium gel ??? furosemide (LASIX) 20 mg tablet ??? INCRUSE ELLIPTA 62.5 mcg/actuation ??? levothyroxine (SYNTHROID) 25 mcg tablet ??? lidocaine 4 % patch ??? naloxone (NARCAN) 4 mg/actuation nasal spray ??? olopatadine (PATADAY) 0.2 % ophthalmic solution ??? ondansetron (ZOFRAN) 4 mg tablet ??? [...] mL (0.083 %) nebulizer solution OBJECTIVE: BP 108/55 (BP Cuff Location: Left arm, BP Patient Position: Sitting, BP Cuff Sizes: Adult, long) Pulse 79 Comment: r Temp 36.4 ??C (97.5 ??F) (Tympanic) Resp 16 Wt (!) 109.7 kg (241 lb 12.8 oz) SpO2 96% Comment: on room air BMI 41.50 kg/m?? Gen: Well appearing middle-age female, NAD HEENT: EOMI, PERRL, conjunctiva pink, no scleral injection/ icterus CV: RRR, no murmurs, rubs or gallops Pulm: CTAB, good air movement, no wheezes, rales, or rhonchi Extrem: Chronic +1 pitting edema up to bilateral knees Skin: No rashes or erythema, intact Neuro: A&Ox3, CN II through XII grossly intact Recent Labs/Imaging: Reviewed in epic ASSESSMENT and PLAN: Tara was seen today for hospital discharge follow up. Diagnoses and all orders for this visit: Chronic respiratory failure with hypoxia (HCC-CMS) ([facility]), Shortness of breath: Shortness of breath and hypoxia resolved following admission for volume overload and COPD exacerbation. Patient is now status post a 5-day steroid burst and confirms stable weights on her current regiment of diuretics - EAR/PULSE OXIMETRY, SINGLE -Continue O2 therapy as needed -Continue Incruse Ellipta, as prescribed -Continue use of rescue albuterol inhaler as needed Stage 2 chronic kidney disease: Patient with history of recurrent acute kidney injury with aggressive diuretic use. GFR currently stable on new diuretic regiment - We will repeat BASIC METABOLIC PANEL (BMP); Future in 1 to 2 weeks Other hypervolemia, Other cirrhosis of liver (HCC): Likely multifactorial source of recurrent episodes of volume overload. High suspicion of influence from chronic liver disease as well as salt heavydiet. Patient has been referred to cardiology to pursue evaluation and management for possible HFpEF. -Continue furosemide 40 mg daily -Continue spironolactone 100 mg daily -Heavily encouraged patient to closely monitor daily weights and to update this office if her weights exceed 5 pounds from her current baseline. Chronic pain syndrome: Longstanding and multifactorial. Patient reported a particular pain focus inher lower back and bilateral knees today. -Continue oxycodone as prescribed -We will trial lidocaine patches at 4% for use daily for chronic back pain -We will trial topical diclofenac gel at 1% strength twice daily as needed use for knee pain. -Follow-up as scheduled for chronic pain follow-up F/u: As scheduled Some of this note was transcribed with [employer] FFT dictating software. While it was proofread, it may still contain unnoticed grammatical or word errors due to incorrect transcribing. Emigdio Veronica MD 06/27/2022 14:05 documented in this encounter Plan of Treatment Upcoming Encounters Date Type Department Care Team (Late st Contact Info) Description 01/04/2025 13:00 EST Office Visit [facility] Ophthalmology - [address] [phone] Gagandeep Rome MD [address] [place] [address], Level 5 [place] [phone] 02/11/2025 13:30 EDT Telemedicine [facility] Hematology & Oncology - [address] [phone] Dana Padilla MD [address] [place] [address], [facility] 2 [place] [phone] Scheduled Orders Name Type Priority Associated Diagnoses Orde r Schedule EAR/PULSE OXIMETRY, SINGLE Procedures Routine Shortness of breath Ordered: 06/25/2022 documented as of this encounter Visit Diagnoses Diagnosis Shortness of breath- Primary Chronic respiratory failure with hypoxia (HCC-CMS) Chronic respiratory failure Stage 2 chronic kidney disease Other hypervolemia Other cirrhosis of liver (HCC-CMS) Chronic pain syndrome Healthcare maintenance Routine general medical examination at a health care facility documented in this encounter Care Teams Electronics Design Engineer Relationship Specialty Start Date End Date Emigdio Veronica MD [address] [place] [phone] PCP - General Internal Medicine - Primary Care 05/22/20 02/21/24 documented as of this encounter
--- OUTSIDE RECORDS SUMMARY | 2024-11-22 17:03 | XMS_ITS | Encounter Summary ---
Author Organization [facility] Address [address] [place] [address] Care Team Providers Care Manager Management Name Role Phone Emigdio Veronica MD Primary Care Provider + Starr Paige MD Unavailable [phone] Dana Padilla MD Unavailable Reason for Visit * Reason Onset Date Comments Leg Swelling 06/09/2022 Shortness of Breath 06/09/2022 Encounter Details Date Type Department Care Team (Late st Contact Info) Description 06/09/2022 Telephone [facility] Adult Primary Care - [address] [place] [address] Emigdio Veronica MD [address] [place] [phone] Leg Swelling; Shortness of Breath Social History Tobacco Use [...] 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 Answer Date of Assessment Author No 05/08/2022 1:00 Re Smart RN * Are you blind or do you have serious difficulty seeing, even when wearing glasses? Answer Date of Assessment Author No 05/08/2022 1:00 Re Smart RN * Do you have serious difficulty walking or climbing stairs? (5 years old or older) Answer Date of Assessment Author No 05/08/2022 1:00 Re Smart RN * Do you have difficulty dressing or bathing? (5 years old or older) Answer Date of Assessment Author No 05/08/2022 1:00 Re Smart RN * Because of a physical, mental, or emotional condition, do you have difficulty doing errands alone such as visiting a doctor's office or shopping? (15 years old or older) Answer Date of Assessment Author No 05/08/2022 1:00 Re Smart RN documented as of this encounter Mental Status * Because of a physical, mental, or emotional condition, do you have serious difficulty concentrating, remembering, or making decisions? (5 years old or older) Answer Entry Date Author No 05/08/2022 1:00 EDT Re Kamara RN documented in this encounter Miscellaneous Notes * Telephone Encounter - Jes Mayorga RN - 06/09/2022 1559 EDT Weight gain of 8 pounds since Tuesday. Last night had low grade fever. Sluggish today. Legs hurt so bad that not able to keep anything down. patient has peeling skin on her feet. Patient coughing up frothy sputum. Patient referred to Er for evaluation. Patent will follow up in pcp on Tuesday. The patient indicates understanding of these issues and agrees with the plan. Call to ER Triage Report given to José Miguel. * Telephone Encounter - Noemi aHll - 06/09/2022 8912 EDT Reason for Call: Leg Swelling and Shortness of Breath Summary/Symptoms: paeint states she came home from vacation early because she is howing terrible swelling in legs and ankles. Red and burning from the knees down and hard as a rock. Also states feels like fluid in lungs and having a hard time taking breaths Onset and Duration: end of last week and getting worse Does the patient have a computer, laptop or smart phone with high speed & video capability? N/A If so, would they be interested in doing a video visit via Zoom? N/A Appointment Offered? No Noemi Hall 06/09/2022 15:43 documented in this encounter Plan of Treatment Upcoming Encounters Date Type Department Care Team (Late st Contact Info) Description 01/04/2025 13:00 EST Office Visit [facility] Ophthalmology - [address] [address] Gagandeep Rome MD 111 [facility] 5 [place] [address] 02/11/2025 13:30 EDT Telemedicine [facility] Hematology & Oncology - [address] [phone] Dana Padilla MD 111 [facility] 2 [place] [address] documented as of this encounter Visit Diagnoses Not on filedocumented in this encounter Care Teams Manager Management Relationship Specialty Start Date End Date Emigdio Veronica MD [address] [place] [phone] PCP - General Internal Medicine - Primary Care 05/22/20 02/21/24 Starr Paige MD [facility] [address] [place], [place] [phone] Hematology 10/08/21 06/09/22 Dana Padilla MD [address] [place] [address] 2 [place] [address] Hematology 01/13/22 06/09/22 documented as of this encounter
--- OUTSIDE RECORDS SUMMARY | 2024-11-22 17:03 | XMS_ITS | Encounter Summary ---
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 Answer Date of Assessment Author No 06/15/2022 17:16 EDT Me jose antonio Geronimo RN * Are you blind or do [...] Telephone Encounter - Pam Ivey RN - 06/15/2022 1628 EDT Pt called back. Relayed Dr Veronica's message. Pt verbalized understanding and agrees to return to ED. She will have some drive her and should be there within the next 45-60 minutes. Called [facility] ED through [facility]- notified that Pt will be coming to them and provided report about Pt'ssymptoms. * Telephone Encounter - Emigdio Veronica MD - 06/15/2022 1619 EDT Agree. She should return to the ED. She has been on an increased dosage of lasix that has failed toimprove any of her symptoms. She is now more SOB and appreciating worsening edema. She could be a volume overload state from her cirrhosis or from renal injury and may require IV diuretics. I do not see a safe treatment path as an outpatient. She should be evaluated in the ED tonight. * Telephone Encounter - Pam Ivey RN - 06/15/2022 1354 EDT Phone call to Pt. Pt just weighed herself now and is 250 lbs. Reports that she has been gaining weight a little at a time since ED visit last week. She believes that she weighed as little as 239 lbs after ED visit, but never wrote anything down so is difficult historian with weight. Having some SOB (has had to use 2L oxygen during the day and generally only needs it during nighttime). Feels tired. Legs and feet are swollen with pitting edema- maybe a little worse since ED, but definitely no better. She has been trying to elevate legs. Sometimes coughing up white frothy stuff. Says that she feels about the same as when she went to ED last week. Has been taking 60mg Lasix since ED visit on 06/09/22. Advised that likely Pt needs to return to ED since she seems to still be be in fluid overload. Pt really doesn't want back to ED because she doesn't want to have to wait in the waiting room. Shestates that she really would like a note sent to Dr Veronica to confirm whether she needs to go backto ED. Please advise. Thanks! * Telephone Encounter - Emigdio Veronica MD - 06/15/2022 1144 EDT I would not keep her at 60 mg for very long given her history of pre-syncope and Casa on increased diuretics. More clinical info needed. What are her current weights and how long has she been on 60 mg of furosemide? * Telephone Encounter - Ebony Toscano - 06/15/2022 1139 EDT Pt calling today, 06.15.22. She reports she was in the ER on 06.09.22 due to fluid build up & CHF. She says they increased her Lasix to 60 mg daily due to the fluid. She says Dr. Veronica had her taking 40 mg Mon, Wed, & Fri, the other days she was taking 20 mg. She has an appt on 06.25.22 to F/U. She ?what dosage Lasix she should be taking until then? She is worried about her kidney function. documented in this encounter Plan of Treatment Upcoming Encounters Date Type Department Care Team (Late st Contact Info) Description 01/04/2025 13:00 EST Office Visit [facility] Ophthalmology - [address] [address] Gagandeep Rome MD [address] [place] [address], [address] [place] [phone] 02/11/2025 13:30 EDT Telemedicine [facility] Center Hematology & Oncology - [facility] [address] [place], [place] [phone] Dana Padilla MD 111 [facility], Level [address] [place] [phone] documented as of this encounter Visit Diagnoses Not on filedocumented in this encounter Care Teams Track Dresser Relationship Specialty Start Date End Date Emigdio Veronica MD [address] [place] [phone] PCP - General Internal Medicine - Primary Care 05/22/20 02/21/24 documented as of this encounter
--- OUTSIDE RECORDS SUMMARY | 2024-11-22 17:03 | XMS_ITS | Encounter Summary ---
Author Organization [facility] Address [address] [place] [address] Care Team Providers Care Head Of English Name Role Phone Emigdio Veronica MD Primary Care Provider + Starr Paige MD Unavailable [phone] Dana Padilla MD Unavailable Reason for Visit * Reason Onset Date Comments Prior Auth, Medication 05/20/2022 Encounter Details Date Type Department Care Team (Late st Contact Info) Description 05/20/2022 Telephone [facility] Adult Primary Care - [place] [address] [place] [address] Emigdio Veronica MD [address] [place] [address] Prior Auth, Medication Social History [...] PHQ-2 Answer Date Recorded PHQ-2 SUBTOTAL 0 05/07/2022 Hunger Vital Sign Answer Date Recorded Within [...] Industry 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 No / Unsure 05/07/2022 14:41 EDT documented as of this encounter Functional Status * Are you deaf or do you have serious difficulty hearing? Answer Date of Assessment Author No 05/08/2022 1:00 EDT Re Kamara RN * Are you blind or do you have serious difficulty seeing, even when wearing glasses? Answer Date of Assessment Author No 05/08/2022 1:00 EDT Re Kamara RN * Do you have serious difficulty walking or climbing stairs? (5 years old or older) Answer Date of Assessment Author No 05/08/2022 1:00 EDT Re Kamara RN * Do you have difficulty dressing or bathing? (5 years old or older) Answer Date of Assessment Author No 05/08/2022 1:00 EDT Re Kamara, KENN * Because of a physical, mental, or emotional condition, do you have difficulty doing errands alone such as visiting a doctor's office or shopping? (15 years old or older) Answer Date of Assessment Author No 05/08/2022 1:00 EDT Re Kamara RN documented as of this encounter Mental Status * Because of a physical, mental, or emotional condition, do you have serious difficulty concentrating, remembering, or making decisions? (5 years old or older) Answer Entry Date Author No 05/08/2022 1:00 EDT Re Kamara RN documented in this encounter Miscellaneous Notes * Telephone Encounter - Cris Copeland - 05/20/2022 1649 EDT PA not required through [employer]. * Telephone Encounter - Cris Copeland - 05/20/2022 1647 EDT epa requested for olopatadine documented in this encounter Plan of Treatment Upcoming Encounters Date Type Department Care Team (Late st Contact Info) Description 01/04/2025 13:00 EST Office Visit [facility] Ophthalmology - [address] [phone] Gagandeep Rome MD [address] [place] [address], [facility] [address] [place] [phone] 02/11/2025 13:30 EDT Telemedicine [facility] Hematology & Oncology - [address] [phone] Dana Padilla MD [address] [place] [address], [address] [place] [phone] documented as of this encounter Visit Diagnoses Not on filedocumented in this encounter Care Teams Head Of English Relationship Specialty Start Date End Date Emigdio Veronica MD [address] [place] [phone] PCP - General Internal Medicine - Primary Care 05/22/20 02/21/24 Starr Paige MD [address] [place] [phone] Hematology 10/08/21 06/09/22 Dana Padilla MD [address] [facility], [address] [place] [address] Hematology 01/13/22 06/09/22 documented as of this encounter
--- OUTSIDE RECORDS SUMMARY | 2024-11-22 17:03 | XMS_ITS | Encounter Summary ---
Author Organization [facility] Address [address] [place] [address] Care Team Providers Care Auto Transport Driver Name Role Phone Emigdio Veronica MD Primary Care Provider + Starr Paige MD Unavailable [phone] Dana Padilla MD Unavailable Reason for Visit * Reason Comments Shortness of Breath PMH COPD, has been c oughing up frothy white substance, concerned for fluid in lungs. states that she has not been able to swallow anything. 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 file Not on file Not o n file documented as of this encounter Last Filed Vital Signs Vital Sign Reading Time Taken Comments Blood Pressure 115/48 06/09/2022 1747 EDT Pulse 95 06/09/2022 1747 EDT Temperature 36.7 ??C (98 ??F) 06/09/2022 1747 EDT Respiratory Rate 22 06/09/2022 1747 EDT Oxygen Saturation 99% 06/09/2022 1747 EDT Inhaled Oxygen Concentration - - Weight [...] 05/08/2022 1:00 EDT Re Kamara RN * Because of a physical, mental, [...] Answer Entry Date Author No 05/08/2022 1:00 Re Smart RN documented in this encounter Medications at Time of Discharge naloxone (NARCAN) 4 mg/actuation nasal spray 0.1 [...] 3 chlorzoxazone (PARAFON FORTE) 500 mg tablet Take 1 Tablet by mouth 3 times daily as needed for Muscle Spasms. 90 Tablet 1 04/23/2022 2 furosemide (LASIX) 20 mg tabletIndications:Bi lateral lower extremity edema Take 1 tablet by mouth 4 days per week (Tuesday, Tuesday, Tuesday, ), and 2 tablets by mouth 3 days per week (Tuesday, Tuesday, Tuesday). 120 Tablet 05/20/2022 2 levothyroxine (SYNTHROID) 25 mcg tablet Take 1 Tablet by mouth daily before breakfast. 90 Tablet 1 05/20/2022 2 olopatadine (PATADAY) 0.2 % ophthalmic solutionIndications: Allergic conjunctivitis and rhinitis, unspecified laterality Place 1 Drop into both eyes daily as needed for Allergies. 5 mL 2 05/20/2022 2 ondansetron (ZOFRAN) 4 mg tablet Take 1 Tablet by mouth every 8 hours as needed for Nausea. 30 Tablet 1 05/04/2022 2 oxyCODONE (ROXICODONE) 5 mg immediate release tablet Take 1 Tablet by mouth 3 times daily as needed for up to 28 days for Pain. Daily Max: 15 mg 84 Tablet 06/09/2022 2 oxyCODONE (ROXICODONE) 5 mg immediate release tablet Take 1 Tablet by mouth every 8 hours as needed for Pain. Daily Max: 15 mg 2 Tablet 04/13/2022 2 pantoprazole (PROTONIX) 40 mg tablet Take 1 Tablet by mouth 2 times daily. 60 Tablet 2 06/03/2022 2 sertraline (ZOLOFT) 100 mg tablet Take 1 Tablet by mouth daily. 1 Tablet 02/17/2022 2 sertraline (ZOLOFT) 50 mg tablet TAKE 1 TABLET BY MOUTH EVERY DAY 90 Tablet 2 05/17/2022 2 spironolactone (ALDACTONE) 50 mg tablet Take 1 Tablet by mouth daily. 90 Tablet 1 03/10/2022 2 sucralfate (CARAFATE) 1 gram tablet TAKE 1 TABLET BY MOUTH FOUR TIMES A DAY 120 Tablet 3 05/10/2022 4 SYMBICORT 160-4.5 mcg/actuation HFA aerosol inhaler inhalerIndications:C OPD with asthma ([facility]) INHALE 2 PUFFS DIRECTED DAILY 10.2 Each 1 04/14/2022 2 traZODone (DESYREL) 100 mg tablet Take 2 Tablets by mouth at bedtime. 180 Tablet 05/04/2022 2 umeclidinium (INCRUSE ELLIPTA) 62.5 mcg/actuationIndicat ions:Chronic obstructive pulmonary disease, unspecified COPD type (HCC-CMS) Inhale 1 Puff as directed daily. 1 Each 05/20/2022 2 documented as of this encounter Discharge Disposition Disposition Code Departure Means Destination [facility] Department documented in this encounter ED Notes * Elle Nnio, BLAST FURNACE HELPER - 06/09/2022 1903 EDT DOS: 06/09/2022 Chief Complaint: Chief Complaint Patient presents with ??? Shortness of Breath PMH COPD, has been coughing up frothy white substance, concerned for fluid in lungs. states that she has not been able to swallow anything. ??? Leg Swelling +2 edema of nya lower extremities, states that she is on a diuretic but it seems to not be helping Assessment and Plan EKG normal. Patient with acute on chronic SOB with multiple co-morbidities. Patient given a duoneb and transferred to the ED via ambulance. Final diagnoses: SOB (shortness of breath) Procedures No results found for this visit on 06/09/22. Radiology orders: None Consult orders: None Imaging Results None EKG 12-LEAD Preliminary Result Wave form only; Final to follow after physician interpretation. Site Test Date: 2022-06-09 Pat Name: TARA BOOTHE Department: [facility] Room: 16 Gender: Female Subassembler: : 1960 Requested By: ARMANDO ORTEGA Order Number: [id number] Jose PHIPPS: The patient is a 61 y.o. female who presents today with Shortness of Breath (PMH COPD, has been coughing up frothy white substance, concerned for fluid in lungs. states that she has not been able to swallow anything. ) and Leg Swelling (+2 edema of nya lower extremities, states that she is on a diuretic but it seems to not be helping) Patient with a history of COPD, portal vein thrombosis,liver cirrhosis, partial splenic embolization, respiratory failure, HUEY, on home O2 (nighttime and during the day PRN), pancytopenia and PUD presents for a 6 day history of fatigue, bilateral lower leg swelling, cough productive of white frothysputum and chills. She has been taking her furosemide and spironolactone as prescribed. She has been using her albuterol with minima relief. Quit smoking 1 year ago. Lives with 2 smokers. Had driven to [place] 8 days ago (12 hours in the car), but had to return 2 days later as she was not feeling well. Covid vaccinated. No known ill contacts. Review of Systems Constitutional: Positive for activity change, appetite change, chills and fatigue. Negative for fever. HENT: Negative for congestion, rhinorrhea, sinus pressure, sinus pain, sneezing and sore throat. Respiratory: Positive for cough, chest tightness, shortness of breath and wheezing. Cardiovascular: Positive for leg swelling. Negative for chest pain and palpitations. Gastrointestinal: Negative for abdominal pain, diarrhea, nausea and vomiting. Musculoskeletal: Negative for myalgias. Neurological: Positive for headaches. Negative for dizziness. No current facility-administered medications for this encounter. Current Outpatient Medications Medication Sig Dispense Refill ??? albuterol 90 mcg/actuation inhaler Inhale 1-2 Puffs as directed every 4 hours as needed for Wheezing. 1 Inhaler 0 ??? chlorzoxazone (PARAFON FORTE) 500 mg tablet Take 1 Tablet by mouth 3 times daily as needed for Muscle Spasms. 90 Tablet 1 ??? furosemide (LASIX) 20 mg tablet Take 1 tablet by mouth 4 days per week (Tuesday, Tuesday, Tuesday, ), and 2 tablets by mouth 3 days per week (Tuesday, Tuesday, Tuesday). 120 Tablet 0 ??? levothyroxine (SYNTHROID) 25 mcg tablet [...] 1 Tablet by mouth 2 times daily. 60 Tablet 2 ??? sertraline (ZOLOFT) 100 mg tablet Take 1 Tablet by mouth daily. 1 Tablet 0 ??? sertraline (ZOLOFT) 50 mg tablet TAKE 1 TABLET BY MOUTH EVERY DAY (Patient not taking: Reportedon 05/20/2022) 90 Tablet 2 ??? spironolactone (ALDACTONE) 50 mg tablet Take 1 Tablet by mouth daily. 90 Tablet 1 ??? sucralfate (CARAFATE) 1 gram tablet TAKE 1 TABLET BY MOUTH FOUR TIMES A DAY 120 Tablet 3 ??? SYMBICORT 160-4.5 mcg/actuation HFA aerosol inhaler inhaler INHALE 2 PUFFS DIRECTED DAILY 10.2 Each 1 ??? traZODone (DESYREL) 100 mg tablet Take 2 Tablets by mouth at bedtime. 180 Tablet 0 ??? umeclidinium (INCRUSE ELLIPTA) 62.5 mcg/actuation Inhale 1 Puff as directed daily. 1 Each 0 Facility-Administered Medications Ordered in Other Encounters Medication Dose Route Frequency Provider Last Rate Last Admin ??? albuterol (ACCUNEB) 2.5 mg /3 mL (0.083 %) nebulizer solution Allergies Allergen Reactions ??? Metoclopramide Nausea Only, [...] ??? Prochlorperazine ??? Reglan [Metoclopramide Hcl] Rash Patient Active Problem List Diagnosis Date Noted ??? Shortness of breath 05/08/2022 ??? Hypoxemia 05/08/2022 ??? Respiratory failure with hypoxia (HCC-CMS) (HCC) 05/07/2022 ??? LUQ abdominal pain 02/10/2022 ??? Abdominal pain 11/03/2021 ??? Chronic respiratory failure with hypoxia (HCC-CMS) (HCC) 10/02/2021 ??? 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 Hypersplenism 09/28/2021 ??? Moderate protein-calorie malnutrition (HCC-CMS) (HCC) 07/02/2021 ??? Fluid overload 07/01/2021 ??? Frequent falls 06/29/2021 ??? Portal vein thrombosis 04/23/2021 -04/23/21: Nonocclusive portal vein thrombosis (abd pain), [...] admitted with syncope/dizziness and found to have ? Extravasation into her nonocclusive PVT (?bleeding). H/H were stable. apixaban held pending further consideration as outpatient. LE US during this admission neg for DVT. ??? COPD (chronic obstructive pulmonary disease) (HCC-CMS) [...] provider: Dr. Ijeoma Smith, GI Department in [facility] for long-standing decompensated liver cirrhosis ??? Obesity, Class II, BMI 35-39.9 09/30/2017 Lost about 80 lbs over last 2 years - weight was as high at 250-60 ??? Hypothyroidism 09/30/2017 ??? Chronic pain syndrome 09/09/2017 Intolerant of Lyrica, gabapentin, Robaxin. Previously on oxycodone, now on Dilaudid with history of renal insufficiency. Reportedly unable to take acetaminophen due to thrombocytopenia history. Unable to take any forms of NSAID due to renal insufficiency history. ??? Splenic vein thrombosis 08/24/2017 ??? Drug-seeking behavior Per Dr Amelia Tijerina and notes from [facility] patient misconstrued information to several providers about multiple concurrent opiate prescription. -IR embolization 09/28/21 for thrombocytopenia. Counts raised from 30s to 200K ??? Abdominal wall hernia 11/05/2016 ??? Allergic rhinitis 11/05/2016 ??? Pancytopenia (HCC) 07/18/2015 -bone marrow biopsy at [facility] in 2012: maturing trilineage hematopoiesis with [...] daily. -01-13-22: EGD NORMAL ([facility]) ??? Thrombocytopenia (HCC-CMS) ([facility]) 10/26/2021 Took lusutrombopag 3 mg once daily [...] 11/10/2020 Added automatically from request for surgery [id number] Past Medical History: Diagnosis Date ??? Anemia ??? Anxiety ??? Asthma 12/10/2020 currently not taking - mild persistent - see dr. Veronica 11/20/2021; 01/11/22- uses rescue inhaler twice daily ??? Blood clotting disorder ([facility]-CMS) ([facility]) blood clot in place- spleenic vein; per pt ??? Bursitis right shoulder ??? C. difficile colitis 07/25/2015 Hospitalized after kidney stone removal ??? Chronic kidney disease ??? Cirrhosis of liver (HCC-CMS) ([facility]) ??? Community acquired pneumonia january 2021 ??? COPD exacerbation (HCC-CMS) ([facility]) 04/26/2020 ??? Depression ??? Drug-seeking behavior Per Dr Amelia Tijerina and notes from [facility] patient misconstrued information to several providers [...] off throughout day; BLE; 01/11/22- ??? Thrombocytopenia (HCC-CMS) (HCC) 12/10/2020 - see 11/20/2020 Dr. Veronica H&P, (managed by Starr Paige MD) ??? Thyroid disease Social History Tobacco Use ??? Smoking status: Former Smoker Packs/day: 0.25 Years: 35.00 Pack years: 8.75 Types: Cigarettes Quit date: 08/20/2016 Years since quittin.8 ??? Smokeless tobacco: Never Used ??? Tobacco comment: no cigarette x2 weeks Vaping Use ??? Vaping Use: Never used Substance Use Topics ??? Alcohol use: No ??? Drug use: Not Currently Family History Problem Relation Age of Onset [...] Neg Hx ??? Endometrial Cancer Neg Hx BP 115/48 Pulse 95 Temp 98 ??F (36.7 ??C) (Tympanic) Resp 22 SpO2 99% Physical Exam Vitals reviewed. Constitutional: General: She is not in acute distress. Appearance: Normal appearance. She is well-developed. She is ill-appearing. She is not toxic-appearing or diaphoretic. HENT: Head: Atraumatic. Nose: Nose normal. No congestion. Mouth/Throat: Mouth: Mucous membranes are moist. Pharynx: No pharyngeal swelling or oropharyngeal exudate. Cardiovascular: Rate and Rhythm: Normal rate and regular rhythm. Heart sounds: Normal heart sounds. No murmur heard. No friction rub. Pulmonary: Effort: No respiratory distress. Breath sounds: No stridor. Wheezing (scattered, moderate.) present. No rhonchi or rales. Chest: Chest wall: No tenderness. Abdominal: General: There is no distension. Palpations: Abdomen is soft. Tenderness: There is no abdominal tenderness. Musculoskeletal: General: Swelling and tenderness present. Cervical back: Normal range of motion. Right lower leg: Edema present. Left lower leg: Edema present. Comments: 2+ pitting edema to lower legs bilaterally. Skin: General: Skin is warm and dry. Neurological: General: No focal deficit present. Mental Status: She is alert and oriented to person, place, and time. Psychiatric: Mood and Affect: Mood normal. Behavior: Behavior normal. PCP: Emigdio Cai was available for consultation during my care of this patient. Urgent Care Course A medical screening exam was performed. DISPOSITION: Transfered to Another Facility The patient's pain was managed to an adequate level weighing risk vs. benefit of further medications. Upon departure from The Urgent Care, the patient's pain was 1 on a zero to ten scale. Any further pain treatment will be at the discretion of the provider following up with the patient based on their clinical assessment . Condition at departure from the The Urgent [facility] : Stable MDM 06/13/2022 13:32 * Madhavi Espinosa RN - 06/09/2022 9059 EDT Mrs. Boothe is presenting w/ BLE swelling, stated she gained 9lbs since Tuesday. Has COPD but feelsthat she has exacerbation of her status, stated frothy white sputum, SHORTNESS OF BREATH, on home O2 at night now using intermittently t./o the day. Stated emesis x 2 days, unable to keep food down. documented in this encounter Plan of Treatment Upcoming Encounters Date Type Department Care Team (Late st Contact Info) Description 01/04/2025 13:00 EST Office Visit [facility] Ophthalmology - [address] [phone] Gagandeep Rome MD [address] [place] [address], [facility] [address] [place] [phone] 02/11/2025 13:30 EDT Telemedicine [facility] Hematology & Oncology [address] [phone] Dana Padilla MD [address] [place] [address], [facility] [address] [place] [phone] documented as of this encounter Procedures Procedure Name Priority Date/Time Associated Diagnosis Comments ECG REPORT - SCANNED 07/07/2022 19:03 EDT EKG 12-LEAD STAT 06/09/2022 18:19 EDT documented in this encounter Results * ECG REPORT - SCANNED (07/07/2022 19:03 EDT) 07/07/2022 19:0 3 EDT us Scan 2 Public Works Manager PROCEDURE/MINOR SURGICAL OR DERABLES Final Result * EKG 12-LEAD (06/09/2022 18:19 EDT) 06/09/2022 18:1 9 EDT Narrative [facility] EKG - 07/07/2022 18:56 EDT ? PC Site ? Test Date: ?2022-06-09 Pat Name: ? PHYLISS BOOTHE ?Department: ?? [facility] ? Room: ? 16 Gender: ? Female ? Subassembler: ?? : ?1960 ? Requested By: CHEYANNE NINO BLAST FURNACE HELPER Order Number: [id number] ? Reading MD: ?? CHEYANNE NINO BLAST FURNACE HELPER ? Measurements Intervals ?Cadet ? Rate: ? 85 ? P: ?50 WY: ? 156 ?QRS: ?53 QRSD: ? 96 ? T: ?40 QT: ? 375 ? QTc: ?446 ? Interpretive Statements SINUS RHYTHM Automated Interpretation. ??Provider Interpretation to follow. Compared to ECG 05/07/2022 13:26:12 No significant changes agree with above I reviewed the tracing and have either agreed or edited the findings in this report. Electronically Signed On 07-07-2022 18:56:04 EDT by CHEYANNE NINO NP. Procedure Note Elle Nino NP - 07/07/2022 PC Site Test Date: 2022-06-09 Pat Name: TARA BOOTHE Department: [facility] Room: 16 Gender: Female Subassembler: : 1960 Requested By: CHEYANNE BALL Order Number: [id number] Reading MD: CHEYANNE BALL Measurements Intervals Cadet Rate: 85 P: 50 WY: 156 QRS: 53 QRSD: 96 T: 40 QT: 375 QTc: 446 Interpretive Statements SINUS RHYTHM Automated Interpretation. Provider Interpretation to follow. Compared to ECG 05/07/2022 13:26:12 No significant changes agree with above I reviewed the tracing and have either agreed or edited the findings inthis report. Electronically Signed On 07-07-2022 18:56:04 EDT by ELIZABETH HOUSE. us Elle Nino NP CARDIAC ECG ORDERABLES Fin al Result [facility] EKG documented in this encounter Visit Diagnoses Diagnosis SOB (shortness of breath)- Primary Shortness of breath documented in this encounter Administered Medications Inactive Administered Medications - up to 3 most recent administrations Medication Order MAR Action Action Date Dose Rate Site albuterol (ACCUNEB) nebulizer solution 2.5 mg 2.5 mg, nebulization, NOW X1, 1 dose, On Tue06/09/22 at 1845, Routine Given 06/09/2022 18:39 EDT 2.5 mg ipratropium (0.5mg/2.5ml) (ATROVENT) 0.02 % nebulizer solution 0.5 mg 0.5 mg, nebulization, NOW X1, 1 dose, On Tue06/09/22 at 1845, Routine Given 06/09/2022 18:39 EDT 0.5 mg documented in this encounter Active and Recently Administered Medications Times are shown in EDT. Scheduled Medication Order 06/07/2022 06/08/2022 06/09/2022 albuterol (ACCUNEB) nebulizer solution 2.5 mg (COMPLETED) 2.5 mg, nebulization, NOW X1, 1 dose, On Tue06/09/22 at 1845, Routine 1839 (Given - Provid er: Madhavi Espinosa RN) ipratropium (0.5mg/2.5ml) (ATROVENT) 0.02 % nebulizer solution 0.5 mg (COMPLETED) 0.5 mg, nebulization, NOW X1, 1 dose, On Tue06/09/22 at 1845, Routine 1839 (Given - Provid er: Madhavi Espinosa RN) documented in this encounter Care Teams Auto Transport Driver Relationship Specialty Start Date End Date Emigdio Veronica MD [address] [place] [phone] PCP - General Internal Medicine - Primary Care 05/22/20 02/21/24 Starr Paige MD [facility] [address] [place] [phone] Hematology 10/08/21 06/09/22 Dana Padilla MD [address] [facility], Level [address] [place] [phone] Hematology 01/13/22 06/09/22 documented as of this encounter
--- OUTSIDE RECORDS SUMMARY | 2024-11-22 17:03 | XMS_ITS | Encounter Summary ---
Author Organization [facility] Address [address] [place] [address] Care Team Providers Care Charger Operator Helper Name Role Phone Emigdio Veronica MD Primary Care Provider + Starr Paige MD Unavailable [phone] Dana Padilla MD Unavailable Izabella Snowden [facility] Unavailable None, Provider Primary Care Provider UnavailGabriel Dacosta Primary Care Provider [phone] Mirna Guerrero Primary Care Provider + Reason for Visit * Reason Comments Other Encounter Details Date Type Department Care Team (Late st Contact Info) Description [facility] [place] [address] [place] [address] Emigdio Veronica MD [address] [place] [address] Other Social History Tobacco Use [...] Job Start 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 60 Tablet 2 06/03/2022 06/21/2022 documented in this encounter Miscellaneous Notes * Telephone Encounter - Fatoumata Fowler RN - 06/03/2022 1159 EDT Requested Prescriptions Pending Prescriptions Disp Refills ??? pantoprazole (PROTONIX) 40 mg tablet [Pharmacy Med Name: PANTOPRAZOLE SOD DR 40 MG TAB] 30 Tablet 3 Sig: TAKE 1 TABLET BY MOUTH TWICE A DAY [facility]/pharmacy #[id number] - [place], [address] Confirmed Pharmacy? Yes Patient out of medication? Unknown Last Refill Date: 03/22/22 Refills left? (explain exceptions requiring early refill) No Recent Visits Date Type Provider Dept 05/20/22 Office Visit Nguyen Nolasco NP [place] [facility] 02/17/22 Office Visit Emigdio Veronica MD [place] [facility] 02/10/22 Office Visit Darlene Rollins NP [place] [facility] 01/27/22 Office Visit Osmany Matthews MD [place] [facility] 11/25/21 Office Visit Emigdio Veronica MD [place] [facility] 11/11/21 Office Visit Scottie Campuzano PA-C [place] [facility] 10/20/21 Office Visit Emigdio Veronica MD [place] [facility] 10/08/21 Office Visit Emigdio Veronica MD [place] [facility] 09/18/21 Office Visit Scottie Campuzano PA-C [place] [facility] 07/22/21 Office Visit Scottie Campuzano PA-C [place] [facility] Showing recent visits within past 540 days with a meds authorizing provider and meeting all other requirements Future Appointments Date Type Provider Dept 06/11/22 Appointment Emigdio Veronica MD [place] [facility] 07/07/22 Appointment Emigdio Veronica MD [place] [facility] Showing future appointments within next 150 days with a meds authorizing provider and meeting all other requirements Future appointment: Already Scheduled FATOUMATA FOWLER RN 06/03/2022 11:59 documented in this encounter Plan of Treatment Upcoming Encounters Date Type Department Care Team (Late st Contact Info) Description 01/04/2025 13:00 EST Office Visit [facility] Ophthalmology - [address] [phone] Gagandeep Rome MD [address] [place] [address], [facility] 5 [place] [address] 02/11/2025 13:30 EDT Telemedicine [facility] Hematology & Oncology [address] [phone] Dana Padilla MD [address] [place] [address] 2 [place] [phone] documented as of this encounter Visit Diagnoses Not on filedocumented in this encounter Discontinued Medications Medication Sig Discontinue Reason Start Date End Da te pantoprazole (PROTONIX) 40 mg tablet TAKE 1 TABLET BY MOUTH TWICE A DAY 03/22/2022 06/03/2022 documented as of this encounter Additional Health Concerns Infection Onset Date Last Indicated Resolved Time R/O COVID-19 06/09/2022 06/09/2022 06/09/2022 21:1 2 EDT R/O COVID-19 07/22/2022 07/22/2022 2022 22:1 5 EDT R/O COVID-19 12/14/2022 12/14/2022 12/14/2022 9:10 EST R/O COVID-19 02/23/2023 02/23/2023 02/23/2023 7:15 EDT R/O COVID-19 04/28/2023 04/28/2023 04/29/2023 0:02 EDT R/O COVID-19 09/07/2023 09/07/2023 09/07/2023 22:1 6 EDT documented as of this encounter Care Teams Charger Operator Helper Relationship Specialty Start Date End Date Emigdio Veronica MD [address] [place] [phone] PCP - General Internal Medicine - Primary Care 05/22/20 02/21/24 None, Provider PCP - General 02/24/24 03/18/24 Gabriel Gandara PA PCP - General 03/19/24 09/11/24 Mirna Guerrero PA [address] [place] [id number] PCP - General 09/12/24 Starr Paige MD [address] [place] [phone] Hematology 10/08/21 06/09/22 Dana Padilla MD [address] [place] [address], [facility], [facility] 2 [place] [phone] Hematology 01/13/22 06/09/22 Izabella Snowden, [facility] 1 [facility], 3rd [place] [address] Rail Car Repairer 02/21/23 05/03/24 documented as of this encounter
--- OUTSIDE RECORDS SUMMARY | 2024-11-22 17:03 | XMS_ITS | Encounter Summary ---
Author Organization [facility] Address [address] [place] [address] Care Team Providers Care Stave Saw Operator Name Role Phone Emigdio Veronica MD Primary Care Provider + Starr Paige MD Unavailable [phone] Dana Padilla MD Unavailable Reason for Visit * Reason Onset Date Comments Medications Refill 06/01/2022 Encounter Details Date Type Department Care Team (Late st Contact Info) Description 06/01/2022 Telephone [facility] Adult Primary Care - [place] [address] [place] [address] Emigdio Veronica MD [address] [place] [address] Medications Refill Social History [...] 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 ISABEL IGLESIAS RN 06/01/2022 15:39 * Telephone Encounter - Isabel Iglesias - 06/01/2022 1501 EDT Medication send by Dr. Ness at 1:30pm today, I just sent her a [facility] [employer] message to let her know as well. 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 She is out of town 06/01-. Is there a plan for tapering of medication noted in chart? no From 04/[address] Vernoica: Chronic pain syndrome: Eye pain burning in setting of extensive portal vein thrombosis and QUIROZ liver cirrhosis -Continue oxycodone 5 mg 3 times daily as needed -We will add methocarbamol 750 mg 3 times daily as needed -Heavily encourage patient to stagger dosing of oxycodone and methocarbamol. Advised patient to stop methocarbamol if she begins to appreciate feeling more drowsy and altered -We will continue to monitor refill requests with oxycodone. Patient has a notable history of drug-seeking behavior with other providers. Early refill requests of oxycodone should not be filled without this provider's permission. PCP out of office this week, routing to POD to review. Pended script with fill date of today and start date of 06/09. ISABEL IGLESIAS RN 06/01/2022 10:54 * Telephone Encounter - Ebony Toscano - 06/01/2022 1048 EDT Requested Prescriptions Pending Prescriptions Disp Refills ??? oxyCODONE (ROXICODONE) 5 mg immediate release tablet 84 Tablet 0 Sig: Take 1 Tablet by mouth 3 times daily as needed for up to 28 days for Pain. Daily Max: 15 mg [facility]/pharmacy #[id number] - [address] Confirmed Pharmacy? Yes Patient out of medication? No BUT, she is leaving to go out of town tomorrow AM, is hoping for an early refill. She will be gone tomorrow, 06.01.22 through Tuesday, 06.12.22. I xpld that if we do an early refill it will not change her start date. The pt understands. Last Refill Date: 05.12.22 Refills left? (explain exceptions requiring early refill) No Recent Visits Date Type Provider Dept 05/20/22 Office Visit Nguyen Nolasco NP [place] [facility] 02/17/22 Office Visit Emigdio Veronica MD [place] [facility] 02/10/22 Office Visit Darlene Rollins NP [place] [facility] 01/27/22 Office Visit Osmany Matthews MD [place] [facility] 11/25/21 Office Visit Emigdio Veronica MD [place] [facility] 11/11/21 Office Visit Scottie Campuzano PA-C [place] [facility] 10/20/21 Office Visit Emigdio Veronica MD [place] [facility] 10/08/21 Office Visit Emigdio Veronica MD [place] [facility] 09/18/21 Office Visit Scottie Campuzano PA-C [place] [facility] 07/22/21 Office Visit Scottie Campuzano PA-C [place] [facility] Showing recent visits within past 540 days with a meds authorizing provider and meeting all other requirements Future Appointments Date Type Provider Dept 06/11/22 Appointment Emigdio Veronica MD [place] [facility] 07/07/22 Appointment Emigdio Veronica MD [place] [facility] Showing future appointments within next 150 days with a meds authorizing provider and meeting all other requirements Future appointment: Already Scheduled Ebony Toscano 06/01/2022 10:48 documented in this encounter Plan of Treatment Upcoming Encounters Date Type Department Care Team (Late st Contact Info) Description 01/04/2025 13:00 EST Office Visit [facility] Ophthalmology - [address] [phone] Gagandeep Rome MD [address] [place] [address], [facility] [address] [place] [address] 02/11/2025 13:30 EDT Telemedicine [facility] Hematology & Oncology [address] [phone] Dana Pdailla MD [address] [place] [address], [address] [place] [address] documented as of this encounter Visit Diagnoses Not on filedocumented in this encounter Discontinued Medications Medication Sig Discontinue Reason Start Date End Da te oxyCODONE (ROXICODONE) 5 mg immediate release tablet Take 1 Tablet by mouth 3 times daily as needed for up to 28 days for Pain. Daily Max: 15 mg Reorder 05/12/2022 06/01/2022 documented as of this encounter Care Teams Stave Saw Operator Relationship Specialty Start Date End Date Emigdio Veronica MD [address] [place] [phone] PCP - General Internal Medicine - Primary Care 05/22/20 02/21/24 Starr Paige MD [address] [place] [phone] Hematology 10/08/21 06/09/22 Dana Padilla MD [address] [facility], [facility] [address] [place] [phone] Hematology 01/13/22 06/09/22 documented as of this encounter
--- OUTSIDE RECORDS SUMMARY | 2024-11-22 17:03 | XMS_ITS | Encounter Summary ---
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 + fatigue. Recently admitted for fluid on my lungs and heart. On home O2 2 L NC (prn). Shortness of Breath * Auth/Cert Specialty Diagnoses / Procedures [facility] To Contact Diagnoses COPD exacerbation ([facility]) Respiratory failure with hypoxia ([facility]) Acute on chronic congestive heart failure, unspecified heart failure type ([facility]) Referral ID Status Reason Start Date Expiration Date Visits Re quested Visits Authorized [id number] 1 1 Encounter Details Date Type Department Care Team (Late st Contact Info) Description 06/15/2022 18:47 EDT - 06/18/2022 15:12 EDT Hospital Encounter [facility] General Medicine Unit [address] [place], [place] [id number] Fausto Roberts MD Degirmenci, Markus, MD [address] [phone] Zully Cook MD [address] [facility], Level [address] [place] [id number] Abdulaziz Burns MD [address] [place] [address] [place] [id number] COPD exacerbation (HCC-CMS) (HCC) (HCC-CMS) (Primary Dx); Acute on chronic congestive heart failure, unspecified heart failure type (HCC-CMS) (HCC); Acute on chronic respiratory failure with hypoxia (HCC-CMS) (HCC); Bilateral lower extremity edema; Acute respiratory failure with hypoxia (HCC-CMS) (HCC) Discharge Disposition: Home or Self Care Social History Tobacco Use Types Packs/Day Years Used Date Smoking Tobacco: Former Cigarettes 0.3 35 0 08/20/1981 - 08/20/2016 Smokeless Tobacco: Never Tobacco Cessation:Counseling Given: No Comments:no cigarette x2 weeks Alcohol Use Standard [...] Job Start Date Job End Date 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 No / Unsure 06/15/2022 17:19 EDT documented as of this encounter Last Filed Vital Signs Vital Sign Reading Time Taken Comments Blood Pressure 124/71 06/18/2022 1318 EDT Pulse 87 06/17/2022 2250 EDT Temperature 37 ??C (98.6 ??F) 06/18/2022 1318 EDT Respiratory Rate 18 06/18/2022 1318 EDT Oxygen Saturation 92% 06/18/2022 1230 EDT Inhaled Oxygen Concentration - - Weight 109.9 kg (242 lb 4.8 oz) 06/18/2022 0623 EDT Height 162.6 cm (5' 4) 06/15/2022 1718 EDT Body Mass Index 41.59 06/15/2022 1718 EDT documented in this encounter Functional Status * Are you deaf or do you have serious difficulty hearing? Answer Date of Assessment Author No 06/16/2022 0:00 EDT Soila Mathis RN * Are you blind or do you have serious difficulty seeing, even when wearing glasses? Answer Date of Assessment Author No 06/16/2022 0:00 EDT Soila Mathis RN * Do you have serious difficulty walking or climbing stairs? (5 years old or older) Answer Date of Assessment Author No 06/16/2022 0:00 EDT Soila Mathis RN * Do you have difficulty dressing or bathing? (5 years old or older) Answer Date of Assessment Author No 06/16/2022 0:00 EDT Soila Mathis RN * Because of a physical, mental, or emotional condition, do you have difficulty doing errands alone such as visiting a doctor's office or shopping? (15 years old or older) Answer Date of Assessment Author No 06/16/2022 0:00 EDT Soila Mathis RN documented as of this encounter Mental Status * Because of a physical, mental, or emotional condition, do you have serious difficulty concentrating, remembering, or making decisions? (5 years old or older) Answer Entry Date Author No 06/16/2022 0:00 EDT Soila Mathis RN documented in this encounter Discharge Summaries * Sabina Welch MD - 06/18/2022 1428 EDT HOSPITAL MEDICINE DISCHARGE SUMMARY Primary Care Provider: Emigdio Veronica Attending Physician: Abdulaziz Burns MD Admit Date: 06/15/22 Discharge Date: 06/18/2022 Disposition (location): home Condition at Discharge: Improved Reason for Admission (chief complaint): Acute on Chronic Hypoxic Respiratory Failure Principal/Final Diagnosis: COPD exacerbation (HCC-CMS) ([facility]) Additional Problems Managed in the Hospital: Active Hospital Problems Diagnosis Date Noted ??? *COPD exacerbation (HCC-CMS) ([facility]) 06/16/2022 ??? Acute on chronic congestive heart failure, unspecified heart failure type (HCC-CMS) ([facility]) 06/16/2022 ??? Respiratory failure with hypoxia (HCC-CMS) ([facility]) 05/07/2022 Resolved Hospital Problems No resolved problems to display. Transition of care: [facility] Transition of Care report automatically routed to PCP office on discharge. Clinical Issues Needing Follow-up 1. Pertinent medication changes: - start prednisone 40mg daily x 1 dose to complete 5 day course of treatment for COPD exacerbation - start lasix 40mg daily until seen by PCP 2. Recommended follow-up tests/procedures needed: - PCP follow-up in 1 week for hospital discharge follow-up - repeat BMP at that time - Referral to Heart Failure Clinic placed at discharge 3. Anticoagulation on discharge: No 4. Changes to goals of care at time of discharge (if applicable): N/A Hospital Course: Phyliss E Boothe??is a 61 y.o.??female??with a PMHx significant for COPD on nocturnal 2L, HFpEF (EF 65%), cirrhosis 2/2??NAFLD, GIB??2/2??duodenal ulcer, hypothyroidism, CKD, HUEY, and GERD who presented to the ED with worsening SOB and weight gain subsequently admitted for??acute on chronic hypoxic respiratory failure In the ED, patient was found to be afebrile and normotensive with new O2 requirement. Initial work-up notable for mildly elevated Cr, normal BNP, and negative troponin. She was treated IV lasix, prednisone, azithromycin, and duonebs and admitted to [facility] for further management. Etiology of patient's acute on chronic hypoxic respiratory failure favored to be multifactorial dueto both COPD exacerbation given significant wheezing on exam and HFpEF exacerbation given recent weight gain. Remainder of hospital course by problem below: COPD Exacerbation: Patient was treated for likely COPD exacerbation with azithromycin, prednisone, scheduled duonebs, and her home inhalers. Her wheezing improved and she was weaned to her home O2 regimen of 2L NC at night while sleeping. HFpEF Exacerbation: Patient appeared volume overloaded on admission despite normal BNP. She was treated with IV diuresis with good response. Her weights were trended daily and she was approaching her dry weight of 240lbs on day of discharge. She was instructed to continue lasix 40mg daily with daily weight monitoring until seen by her PCP, which was an increase in dose from her [employer] regimen. A referral for Heart Failure Clinic was placed. On day of discharge, patient was medically cleared for discharge to home. All patient questions were answered and patient felt comfortable with discharge plan. Relevant Imaging/Procedures Performed: CT ABDOMEN PELVIS WO CONTRAST Result Date: 06/10/2022 1. No acute abnormality abdomen or pelvis, specifically no evidence of bowel obstruction. 2. Interval increase in size of a solid pulmonary nodule, now measuring 2 cm in the left lung base, consider PET CT. 3. Additional unchanged findings noted above including partial infarction of the spleen and enlargement and partial thrombosis of the portal vein. There is now small volume ascites adjacent tothe spleen. This study was performed without intravenous contrast due to the international contrastshortage. This may result in decreased sensitivity and/or specificity. I have personally reviewed the images and the above interpretation and agree with the findings. XR CHEST 2 VIEWS Result Date: 06/15/2022 1. Subsegmental atelectasis and/or scarring in the left lung base. 2. Mild interstitial prominence in the lung bases, possibly representing pulmonary edema but improved compared to prior. Image quality reduced by patient's body habitus. XR CHEST PORTABLE 1 VIEW Result Date: 06/09/2022 1. Findings suggestive of hydrostatic pulmonary edema, as detailed above Results Pending at Discharge: Test results still pending from this admission None Upcoming Appointments Jun 25, 2022 14:30 Office Visit Medium with Emigdio Veronica MD [facility] [place] ([facility] [place]) [address] [place] [id number] Jul 29, 2022 21:30 Sleep Study with [facility] Polysomnogram [facility] Sleep Program - [facility] (--) [address] [place] [address] Aug 11, 2022 9:30 Office Visit with Emigdio Veronica MD [facility] [place] ([facility] [place]) [address] [place] [id number] Follow-up appointments and procedures Amb Consult/Follow Up Heart Failure Clinic Reason for Request: HFpEF, multiple hospitalizations for exacerbations Authorizing Provider: Sabina Welch MD Lauren Adams, MD Family Medicine, PGY2 06/18/22 14:28 #[id number] Secure Chat Cosigned by Abdulaziz Burns MD at 06/18/2022 15:19 EDT Associated attestation - Abdulaziz Burns MD - 06/18/2022 1519 EDT Attestation: I performed or was present during the brown or critical portions of the visit and participated in the management of the patient on 06/18/2022. I agree with the findings and plan of care documented in the resident's/fellow's note. Breathing returned to baseline on day of discharge. Tara's fluid balance remains tenuous, as small increases in her lasix in the outpatient world and previous admissions have increased her creatinine. However, she is clearly requiring multiple hospitalizations for dyspnea on lower doses. Discussed low sodium diet and fluid restriction at length. Patient contemplative on adopting these strategies. Abdulaziz Burns MD 06/18/2022 15:17 documented in this encounter Discharge Instructions * Discharge Instr - AVS First Page* Sabina Welch MD - 06/18/2022 9:49 EDT Check your weight daily and keep a written log! Limit yourself to 2L of fluid daily. For Lasix: - take 40mg daily until you see your PCP - if you notice that you remain at your dry weight of 240lb for several days, its ok to resume yourprevious lasix regimen of 40mg three days weekly (Mon, Wed, Fri) and 20mg the other days (Tue, , Tue, Tue) Call your PCP if: - 3lb weight gain in one day - 4lb weight gain over 2 days * Discharge Instr - Other Orders* Amanda Conteh RN - 06/18/2022 9:51 EDT Remember the acronym ELKIN - Diet: low salt - Activity: daily moderate activity for 30 minutes - Medication administration: refer to the After Visit Summary - Everyday weight: weigh yourself daily and record in weight log - Symptom monitoring and follow though: call your doctor's office If you experience rapid weight gain (3 or more pounds in 2 days), increased shortness of breath, or increase leg swelling. documented in this encounter Medications at Time [...] daily. Until seen by PCP. 120 Tablet 06/18/2022 2 levothyroxine (SYNTHROID) 25 mcg tablet Take [...] times daily. 180 Tablet 3 06/21/2022 3 pantoprazole (PROTONIX) 40 mg tablet Take 1 Tablet by mouth 2 times daily. 60 Tablet 2 06/03/2022 2 predniSONE (DELTASONE) 20 mg tablet Take 2 Tablets by mouth daily for 1 day. 2 Tablet 06/19/2022 2 sertraline (ZOLOFT) 50 mg tablet Take 50 mg by mouth daily. 2 spironolactone (ALDACTONE) 50 mg tablet Take 1 Tablet by mouth daily. 90 Tablet 1 06/21/2022 2 spironolactone (ALDACTONE) 50 mg tablet Take [...] ions:Chronic obstructive pulmonary disease, unspecified COPD type ([facility]) Inhale 1 Puff as directed daily. 1 Each 05/20/2022 2 documented as of this encounter Ordered Prescriptions Prescription Sig Dispense Quantity Refills Last Filled Start Date End Date predniSONE (DELTASONE) 20 mg tablet Take 2 Tablets by mouth daily for 1 day. 2 Tablet 06/19/2022 2 furosemide (LASIX) 20 mg tabletIndications: Bilateral lower extremity edema Take 2 Tablets by mouth daily. Until seen by PCP. 120 Tablet 06/18/2022 2 documented in this encounter Discharge Disposition Disposition Code Departure Means Destination Home or Self Group Home documented in this encounter Progress Notes * Alma Wyatt RN - 06/18/2022 1512 EDT Nursing Discharge Note D: Patient noted with discharge orders to home. A: Prescriptions faxed to pharmacy. Reviewed discharge instructions and prescriptions with Patient IV d/c'd. Belongings collected and sent home with patient. R: Patient verbalized understanding of discharge instructions and denied further questions. ALMA WYATT RN 06/18/2022 15:12 * Bobby Bentley, PT - 06/18/[address] [facility] Rehabilitation Therapy Acute Therapies [facility] Physical Therapy Initial Evaluation/Discontinue Note Date of Service: 06/18/2022 Reason for Referral: Evaluate and treat Precautions: Up with assistance SUBJECTIVE: My breathing is a lot better. Pain: No pain reported during the interview. OBJECTIVE: Reason for hospitalization: Shortness of breath and weight gain PatientProfile: Patient is a 61 y.o. female admitted on 06/15/2022 secondary to COPD exacerbation (HCC-CMS) ([facility]) [J44.1] Respiratory failure with hypoxia (HCC-CMS) ([facility]) [J96.91] Acute on chronic congestive heart failure, unspecified heart failure type (HCC- CMS) ([facility]) [I50.9] The patient lives at [address] [place] [phone] Home environment Lives: With roommates Caregiver Support: Part-time assist Equipment Available: Shower chair and Grab bars. Home O2 use at night and occasionally after exertion during the day (2 L) Home Environment: house Home Layout: One story. Entry stairs 2 with rails Prior Level of Function: Independent Services prior to admission: None Work/Leisure: Disabled Medical/Surgical History: CURRENT: The patient has Pancytopenia ([facility]); Mild persistent asthma without complication; Drug-seeking behavior; Splenic vein thrombosis; Chronic pain syndrome; Other cirrhosis of liver ([facility]); Obesity, Class II, BMI 35-39.9; Hypothyroidism; Abdominal wall hernia; Allergic rhinitis; Partial small bowel obstruction (HCC-CMS) ([facility]); HUEY (obstructive sleep apnea); Dyspnea; Nephrolithiasis; Left ureteral stone; COPD (chronic obstructive pulmonary disease) ([facility]) ([facility]); Portal vein thrombosis; Frequent falls; Fluid overload; Moderate protein-calorie malnutrition (HCC-CMS) ([facility]); Hypersplenism; 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[facility]) ([facility]); Chronic respiratory failure with hypoxia ([facility]) ([facility]);Peptic ulcer disease with hemorrhage; Thrombocytopenia ([facility]) ([facility]); Abdominal pain; LUQ abdominal pain; Respiratory failure with hypoxia ([facility]) ([facility]); Shortness of breath; Hypoxemia; COPD exacerbation ([facility]) ([facility]); and Acute on chronic congestive heart failure, unspecified heart failure type ([facility]) ([facility]) on their problem list. PAST: The patient has a past medical history of Anemia, Anxiety, Asthma (12/10/2020 currently not taking - mild persistent - see dr. Veronica 11/20/2021; 01/11/22- uses rescue inhaler twice daily), Blood clotting disorder (HCC-CMS) ([facility]) (blood clot in place-spleenic vein; per pt), Bursitis (right shoulder), C. difficile colitis (Hospitalized after kidney stone removal), Chronic kidney disease, Cirrhosis of liver (HCC- CMS) ([facility]), Community acquired pneumonia (january 2021), COPD exacerbation ([facility]) ([facility]), Depression, Drug-seeking behavior (Per Dr Amelia Tijerina and notes from [facility] patient misconstrued information to several providers about multiple concurrent opiate prescriptions), Environmental allergies, Exercise involving walking (takes a walk daily for 20 minutes; 01/11/22- weather dependant; Some SOB; cannot do stairs without stopping due to breathing and leg pain- ), GERD (gastroesophageal reflux disease) (12/10/2020 does not wake pt at night; 01/11/22- Med controlled- ), Hemorrhagic disorder (HCC-CMS) ([facility]), History of general anesthesia, History of kidney stones, Hypersplenism syndrome, Hypothyroidism, Joint replaced (12/10/2020 nya knees), Mental disorder, QUIROZ (nonalcoholic steatohepatitis) (with cirrhosis), Pancytopenia ([facility]), Poor d entition (multiple missing teeth-), Rheumatoid arthritis, Sleep apnea (uses simple O2 at night - 2.didn't require CPAP; 01/11/22- 2litres at night, can lay flat), Swelling (Takes diuretic, on and offthroughout day; BLE; 01/11/22-), Thrombocytopenia (HCC-CMS) ([facility]) (12/10/2020 - see 11/20/2020 Dr. Veronica H&P, (managed by Starr Paige MD)), and Thyroid disease. SURGICAL: The patient has a past surgical history that includes hernia repair; Appendectomy; Tonsillectomy; Cholecystectomy; Hysterectomy; knee surgery (Bilateral); joint replacement (Bilateral); Wrist surgery (Right); Gastric fundoplication (1989); bone marrow biopsy; Cystoscopy (12/03/2020); other surgical history; and Upper gastrointestinal endoscopy. Medications: Medications reviewed Arousal, Attention, and Cognition: Orientation: Alert Oriented to person, place, and time Cardiopulmonary: Vital Signs: Activity Heart rate (bpm) Blood Pressure (mmHg) Respiratory rate (breaths/min) Oxygen Sat/ Fractions of inspired Oxygen SPO2/FIO2 % sitting 67 111/58 98% on room air - sitting 80 116/64 97% on room air Patient vital signs stable and patient not symptomatic during examination/treatment. Other: N/A Integumentary/Anthropometric Characteristics: Palpation/Observation: edema: pitting edema lower extremity: bilateral Posture: Forward head and Protracted shoulders Range of Motion and Joint Integrity: Within normal limits as demonstrated functionally. Muscle Performance: Manual muscle testing not formally performed in order to prioritize functional mobility. Strength observed to be at least 3/5 with gross movement. Sensation, Reflexes, and Nerve Integrity: Intact to light touch dermatome testing for BUE/LE Neuromotor Function/Development: No problems noted Balance, Mobility, and Gait: Balance: No loss of balance observed throughout physical therapy session. Mobility: During all activities performed this patient was provided cues and education. These were provided to give movement techniques to: optimize ability for patient to participate in and perform task, optimize patient safety and utilize pacing recommendations Rolling: independent Supine to Sit: independent Sit to Supine: independent Sit to Stand: independent with no device Stand to Sit: independent with no device Transfers: independent with no device Gait: Gait: Patient ambulated 400 feet with no device and independent level of assist. Self-Care, Home Management, Work, and Leisure: N/E at this time Outcomes: Please refer to individual sections for any outcome measures that were performed Informed Consent: The patient consented to the physical therapy evaluation. The patient agrees to and understands the physical therapy treatment plan and goals. Interventions Completed Today: Physical Therapy today at: 1010 Total treatment time: 30 minutes. Timed code treatment minutes: 15 Intervention included: Therapeutic activities: Therapeutic Activity: During all functional activities noted above this patient was provided with manual assist and education via combination of verbal and demonstration. These were provided to give movement techniques to: optimize ability for patient to participate in and perform task, optimize patient safety and utilize pacing recommendations Gait Speed^ assesses walking speed over an established distance. 0.57 m/s Age/gender normative values (Roxy, 2011) Age 95% CI meters/second Male Female 20-29 1.21-1.47 1.08-1.49 30-39 1.31-1.53 1.25-1.41 40-49 1.27-1.47 1.22-1.42 50-59 1.12-1.49 1.10-1.55 60-69 1.03-1.59 0.97-1.45 70-79 0.95-1.41 0.83-1.50 80-89 0.61-1.22 0.56-1.17 Patients (age 65 and older) who are hospitalized with a gait speed < 0.4 meters/second had significantly decreased odds of discharge to home compared to patients with a gait speed > 0.6 meters/second (Chuck, 2012). A cutoff score of < 0.7 meters/second for healthy older adults (>= 75 years) is indicative ofincreased risk of adverse events (fall, hospitalization, need for caregiver, fracture) (Meir, 2005). The minimal clinically important difference (MCID) for community-dwelling elderly is 0.05 to 0.13 meters/second (Perpatrick, 2006). Patient instructed/performed in energy conservation techniques, self initiating rest periods coupled with pursed lip breathing with all functional activities. Patient also instructed/performed in planning movements and clustering activities to conserve energy. Patient instructed/performed deep breathing exercises and encouraged patient to cough in order to bring up secretions. Patient educated in the importance of upright positioning and progression of mobility. Recommended pt ambulate with nursing staff throughout the day. The patient was instructed in and performed 5 repetitions of incentive spirometry to 2000 cc with verbal cues for technique to maximize lung expansion and pacing. The patient was instructed in a cough technique and splinting and performed a cough with splinting 3 repetitions after incentive spirometry. Patient instructed in RPE scale (0-10) and appropriate use to assess current tolerance to activity as well as how to appropriately pace activity now and in the future. Patient verbalized understanding. And rated activity performed today at 3 out of 10 Demonstration provided for stair management technique and sequencing. Pt ascended and descended 3 steps with railing on the right, modified independence, and verbal cueing for sequencing and pacing. Patient educated in discharge planning process and options. Patient states confidence in her ability to return home when medically ready, but asked many questions about appropriate activity pacing and progression at home. Education provided for appropriate home program. Patient/Family Education: Topic: Activity pacing/Energy conservation Breathing exercises Discharge planning Home program Role of therapy Safety Learner: patient Method: verbal and demonstration Barriers to Learning: none noted Outcome: verbalized understanding and returned demonstration Team Communication: Nurse Face to face communication Prior to therapy session and After therapy session Performance during Physical Therapy and recommendations for mobility with nursing and Patient status ASSESSMENT: Physical Therapy Diagnosis: This patient presents with a Physical Therapy diagnosis of :Impaired aerobic capacity, Impaired ventilation, respiration and Lower extremity dysfunction impacted by impairments of: activity tolerance, aerobic tolerance, edema and ventilation Physical Therapy Prognosis: Physical therapy is medically necessary to: address these body structure/function impairments, activity limitations, and participation restrictions, establish and progress mobility/exercise and provide recommendations for staff and safe discharge planning, improve safety and independence and provide education in a home exercise program to address impairments in body function and structures and promote increased activity and participation Current status compared to baseline level of function: expected to be at or near prior level of function. Anticipated rate of progress: Slow Progress may be affected by the following: strengths: baseline knowledge, capacity for carryover of new learning, motivation and previous level of function Discharge recommendations: home With support from roommates and friends as needed. Short-Term Goals: N/A ?? Long-Term Goals: 1 day - MET ??? The patient will be able to perform bed mobility with independent demonstrating appropriate sequencing/motor planning. ??? The patient will be able to perform transfers with independent while demonstrating an effectivestrategy for recovery of loss of balance. ??? The patient will be able to ambulate with independent with no loss of balance on level [id number] feet with/without assistive device as needed. ??? The patient will be able to perform stairs with modified independent with home set up for rails. ??? The patient and/or caregiver will be aware of the PT recommendations provided and verbalize and/or demonstrate understanding of the recommendations. PLAN: Discontinue acute care PT. Continue mobility with nursing assistance while hospitalized. Recommended Discharge Destination: Home Recommended Discharge Services: No physical therapy follow-up services at this time Recommended Equipment Needs: Patient has all necessary equipment Other recommendations: No other consults recommended at this time Pager: [phone] BOBBY BENTLEY, PT 06/18/2022 12:00 * Bobby Bentley, PT - 06/18/[address] [facility] Rehabilitation Therapy Acute Therapy [facility] Physical Therapy Contact Note Date of Service: 06/18/2022 A physical therapy consult order was received, the medical record was reviewed, and an examination was completed. Full note to follow. The recommendation for discharge is for home when medically ready. BOBBY BENTLEY, PT 06/18/2022 10:42 * Marsha Monson, RT - 06/18/2022 0951 EDT Respiratory Consult/Progress Note Indications for Respiratory therapy: Home regimen Data Vitals: Heart Rate: 64 BPM, Resp: 18, SpO2: 96 % FIO2/O2 Device: O2 Device: None, FIO2 %: 21 % RT Orders: QID duoneb BID symbicort PRN duoneb Protocol Scoring: Bronchodilator/Inhalation Therapy Frequency Bronchodilator - Clinical Indications: Home regimen Breath Sounds: Faint wheezing, decreased throughout Response: Mild response, increase subjective per STUDENT SUPPORT ADVISOR Pulse: <100 Resp Rate: <18 SOB: With exertion Total Score: 4 Comment:: QID home routine Frequency Based On Total Score: 0-4 = PRN 5-7 = QID 8-10 = Q4H 11-12 = Q2H Airway Clearance Therapy Frequency Airway Clearance - Clinical Indications: No clinical indications Breath Sounds: Clear / diminished Sputum: Small (tsp) / None Consistency: None Cough Effort: Strong/ non-productive Color: None Total Score: 0 Comment: not indicated Frequency Based On Total Score: 0-3 = PRN 4-6 = QID and PRN 7-9 = Q4H and PRN 10-11 = Q2H and PRN Hyperinflation Therapy Frequency Hyperinflation - Clinical Indications: No clinical indications Breath Sounds: Other Surgery: No X-Ray / Atelectasis: No O2 Requirements: O2 at baseline Mobility Status: Mobile / at baseline Total: 1 Comment: not indicated Frequency Based On Total Score: 0-3 = PRN 4-6 = QID and PRN 7-9 = Q4H and PRN 10-12 = Q2H and PRN Action/Events Patient feels like her breathing is close to baseline. She has a strong, productive cough and states she has a nebulizer to use at home. She is saturating in the mid 90's on room air. She is hopeful for discharge later today. Plan to continue home routine medications as scheduled until discharge. MARSHA MONSON, RT 06/18/22 * Dilan Novak, - 06/17/2022 1650 EDT Respiratory Consult/Progress Note Indications for Respiratory therapy: COPD Data Vitals: Heart Rate: 79 BPM, Resp: 20, SpO2: 95 % FIO2/O2 Device: O2 Flow Rate (L/min): 2 l/min, , O2 Device: Nasal cannula, RT Orders: Qid Duoneb Symbicort BID Protocol Scoring: Bronchodilator/Inhalation Therapy Frequency Bronchodilator - Clinical Indications: Home regimen Breath Sounds: Any abnormal BS decreased Response: Mild response, increase subjective per STUDENT SUPPORT ADVISOR Pulse: <100 Resp Rate: 18-25 SOB: With exertion Total Score: 4 Comment:: PRN Frequency Based On Total Score: 0-4 = PRN 5-7 = QID 8-10 = Q4H 11-12 = Q2H Airway Clearance Therapy Frequency Airway Clearance - Clinical Indications: No clinical indications Breath Sounds: Clear / diminished Sputum: Small (tsp) / None Consistency: None Cough Effort: Strong/ non-productive Color: None Total Score: 0 Comment: not indicated Frequency Based On Total Score: 0-3 = PRN 4-6 = QID and PRN 7-9 = Q4H and PRN 10-11 = Q2H and PRN Hyperinflation Therapy Frequency Hyperinflation - Clinical Indications: No clinical indications Breath Sounds: Other Surgery: No X-Ray / Atelectasis: No O2 Requirements: O2 at baseline Mobility Status: Mobile / at baseline Total: 1 Comment: not indicated Frequency Based On Total Score: 0-3 = PRN 4-6 = QID and PRN 7-9 = Q4H and PRN 10-12 = Q2H and PRN Action/Events 1640- Duoneb given. No complications or respiratory distress at this time. Response/Results Return to home routine when able. DILAN NOVAK, 06/17/22 * Sabina Welch MD - 06/17/2022 1056 EDT Family Medicine Progress Note Admit Date: 06/15/2022 18:47 Date of Service: 06/17/2022 Reason for Admit/CC: shortness of breath 24 Hour Events: - UOP 1.35L, lasix 40mg IV x1 Subjective: Patient feels tired this morning and continues to be short of breath. Feels that her legs continue to be more swollen than normal. No chest pain. ROS: Pertinent positives and negatives are described in the HPI. Objective: VS: Temp: [36.8 ??C (98.2 ??F)-37 ??C (98.6 ??F)] , Heart Rate: [77 BPM-98 BPM] , Resp: [18-20] , BP: (106-122)/(55-72) , SpO2: [93 %-99 %] , SpO2: 94 % Physical Exam: General: Resting comfortably, eating breakfast, NAD HEENT: NC/AT, MMM CVS: RRR, S1S2 normal, no murmurs/rubs/gallops Resp: Breathing comfortably on room air, diffuse wheezes bilaterally with crackles at the bilateralbases Abdomen: non-distended Extremities: 2+ LE pitting edema to the mid-pelayo bilaterally (L>R). Tender to palpation in b/l calves. Neuro: A&Ox3 Skin: No rashes or lesions on visible skin I&O: I&O By Type - 3 Shifts Including Current In: 1759 [P.O.:1759] Out: - Labs: Reviewed WBC/Hgb/Hct/Plts: 3.47/11.2/32.7/88 (06/16 540) Na/K/Cl/CO2: 138/3.5/97/30 (06/16 540) BUN/Cr/glu/ALT/AST/amyl/lip: 15/1.05/147/--/--/--/-- (06/16 540) Imaging: DVT U/S: ??? No evidence of deep or superficial venous thrombosis in the right lower extremity. ??? No evidence of deep or superficial venous thrombosis in the left lower extremity. Assessment/Plan: Tara Boothe is a 61 y.o. 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 Patient hemodynamically stable and breathing comfortably on room air. Etiology of AHRF likely 2/2 COPD exacerbation given significant wheezing on exam though component of fluid overload due to HFpEF likely contributing given recent weight gain and response to diuresis. Will continue COPD exacerbation treatment and escalate diuresis today. Acute on chronic hypoxic respiratory failure COPD Exacerbation - supplemental O2 with goal 88-92% - Azithromycin 500 mg PO every day for 3 days (06/15-06/17) - Prednisone 60 mg x5 days (06/15-06/20) - Duonebs Q4H scheduled - INTERNATIONAL MARKETING INTER[employer] spiriva, symbicort Acute on Chronic HFpEF exacerbation Continues to appear volume overloaded, though unclear how far from baseline. BNP normal on admission. - lasix 60mg IV x1 today, goal net negative 1000mL - will likely repeat diuresis this afternoon - low sodium diet, 1.5L fluid restriction - daily BMP ?? CKD stage II Cr of 1.08 at admission, mildly elevated from baseline around 0.8-0.9. - Avoid nephrotoxic meds - daily BMP Cirrhosis 2/2 NAFLD -Continue with INTERNATIONAL MARKETING INTERN spironolactone ?? Hypothyroidism -Continue with INTERNATIONAL MARKETING INTERN levothyroxine 25 mcg ?? GERD Hx of UGIB 2/2 duodenal ulcer -Continue with INTERNATIONAL MARKETING INTERN protonix 40 mg BID, sucralfate 1 g QID FEN: DIET LOW SODIUM Prophylaxis: lovenox Code Status: Full Code Disposition: anticipate home in 1-2 days Sabina Welch MD Family Medicine, PGY2 06/17/22 11:05 #[id number] Secure Chat Cosigned by Abdulaziz Burns MD at 06/17/2022 16:16 EDT Associated attestation - Abdulaziz Burns MD - 06/17/2022 1616 EDT Attestation: I performed or was present during the brown or critical portions of the visit and participated in the management of the patient on 06/17/2022. I agree with the findings and plan of care documented in the resident's/fellow's note. Breathing continues to improve. Will continue to strive for more aggressive diuresis given continued dyspnea. Hopeful for D/C on 06/18 Abdulaziz Burns MD 06/17/2022 16:16 * Daniel Garcia, RT - 06/17/2022 1048 EDT Respiratory Consult/Progress Note Indications for Respiratory therapy: COPD Data Vitals: Heart Rate: 77 BPM, Resp: 18, SpO2: 94 % FIO2/O2 Device: O2 Flow Rate (L/min): 0 l/min, , O2 Device: None, RT Orders: Qid Duoneb Symbicort BID Protocol Scoring: Bronchodilator/Inhalation Therapy Frequency Bronchodilator - Clinical Indications: Home regimen Breath Sounds: Any abnormal BS decreased Response: No change / no treatment Pulse: <100 Resp Rate: 18-25 SOB: With exertion Total Score: 3 Comment:: QID Frequency Based On Total Score: 0-4 = PRN 5-7 = QID 8-10 = Q4H 11-12 = Q2H Airway Clearance Therapy Frequency Airway Clearance - Clinical Indications: No clinical indications Breath Sounds: Clear / diminished Sputum: Small (tsp) / None Consistency: None Cough Effort: Strong/ non-productive Color: None Total Score: 0 Frequency Based On Total Score: 0-3 = PRN 4-6 = QID and PRN 7-9 = Q4H and PRN 10-11 = Q2H and PRN Hyperinflation Therapy Frequency Hyperinflation - Clinical Indications: No clinical indications Breath Sounds: Other Surgery: No X-Ray / Atelectasis: No O2 Requirements: O2 at baseline Mobility Status: Mobile / at baseline Total: 1 Comment: no tx indicated Frequency Based On Total Score: 0-3 = PRN 4-6 = QID and PRN 7-9 = Q4H and PRN 10-12 = Q2H and PRN Action/Events 0745- Duoneb given. Followed with Symbicort inhaler. Patient used spacer with good technique and mouthrinse. Response/Results Return to home routine when able. DANIEL GARCIA, RT 06/17/22 * Bailee Izquierdo - 06/16/20221955 EDT Respiratory Consult/Progress Note Indications for Respiratory therapy: COPD Data Vitals: Heart Rate: 89 BPM, Resp: 20, SpO2: 94 % FIO2/O2 Device: O2 Flow Rate (L/min): 0 l/min, , O2 Device: None, RT Orders: Q6 Duoneb Symbicort BID Protocol Scoring: Bronchodilator/Inhalation Therapy Frequency Bronchodilator - Clinical Indications: History of bronchospasm Breath Sounds: Any abnormal BS decreased Response: Mild response, increase subjective per STUDENT SUPPORT ADVISOR Pulse: <100 Resp Rate: 18-25 SOB: With exertion Total Score: 4 Comment:: QID Frequency Based On Total Score: 0-4 = PRN 5-7 = QID 8-10 = Q4H 11-12 = Q2H Airway Clearance Therapy Frequency Airway Clearance - Clinical Indications: No clinical indications Breath Sounds: Clear / diminished Sputum: Small (tsp) / None Consistency: Thin Cough Effort: Strong/ non-productive Color: Clear / white Total Score: 0 Frequency Based On Total Score: 0-3 = PRN 4-6 = QID and PRN 7-9 = Q4H and PRN 10-11 = Q2H and PRN Hyperinflation Therapy Frequency Hyperinflation - Clinical Indications: No clinical indications Breath Sounds: Clear Surgery: No X-Ray / Atelectasis: No O2 Requirements: O2 at baseline Mobility Status: Mobile / at baseline Total: 0 Comment: no tx indicated Frequency Based On Total Score: 0-3 = PRN 4-6 = QID and PRN 7-9 = Q4H and PRN 10-12 = Q2H and PRN Action/Events Respiratory events; 1814 Pt tolerated duoneb well, increased aeration after treatment. Response/Results Weaning and Toleration of treatments; 1814 Currently on room air BAILEE IZQUIERDO, RT 06/16/22 * Cathy Hannon - 06/16/2022 1538 EDT Spiritual Care Department Manager Bridge Note Re: Tara Boothe : 1960 Room: [place] [address] Service: Adult Hospital Medicine Mosque: Restorationist Susanricardo has received a visit from the Spiritual Care Department on 06/16/2022. Assessment/Comments: PT was sleeping during several attempted visits while on the floor today. DEMOGRAPHICS Spiritual Care Unable to Assess End of Life Patient Is Unable to Assess Importance Unable to Assess Current Support System Unable to Assess Level of Support Unable to Assess ENCOUNTER DATA Date of Encounter 06/16/22 Time of Encounter 1355 Reason for Encounter Initial Visit Referred by Care Level 0 - Visit Attempted Reason not visited Sleeping ENCOUNTER Needs Addressed Not at present Interventions See Assessment/Comments Sacraments Provided Date of Anointing Communion Date of Communion Date of Alevism OUTCOME Outcome Stress Level Unable to Assess Outcome of Encounter N/A CARE PLAN Plan Consult With Additional Support Was Clergy Needed? , TIME STAMP: Total time spent 0 minutes in direct floor time; >50% of time was spent in spiritualcare. Cathy Hannon 06/16/2022 15:38 * Bailey Lott, RT - 06/16/2022 1214 EDT Respiratory Consult/Progress Note Indications for Respiratory therapy: COPD Data Vitals: Heart Rate: 98 BPM, Resp: 20, SpO2: 99 % FIO2/O2 Device: O2 Flow Rate (L/min): 0 l/min, , O2 Device: None, RT Orders: Q6 Duoneb; Symbicort BID Protocol Scoring: Bronchodilator/Inhalation Therapy Frequency Bronchodilator - Clinical Indications: History of bronchospasm Breath Sounds: Any abnormal BS decreased Response: Mild response, increase subjective per STUDENT SUPPORT ADVISOR Pulse: <100 Resp Rate: 18-25 SOB: With exertion Total Score: 4 Comment:: QID Frequency Based On Total Score: 0-4 = PRN 5-7 = QID 8-10 = Q4H 11-12 = Q2H Airway Clearance Therapy Frequency Airway Clearance - Clinical Indications: No clinical indications Breath Sounds: Clear / diminished Sputum: Small (tsp) / None Consistency: Thin Cough Effort: Strong/ non-productive Color: Clear / white Total Score: 0 Frequency Based On Total Score: 0-3 = PRN 4-6 = QID and PRN 7-9 = Q4H and PRN 10-11 = Q2H and PRN Hyperinflation Therapy Frequency Hyperinflation - Clinical Indications: No clinical indications Breath Sounds: Clear Surgery: No X-Ray / Atelectasis: No O2 Requirements: O2 at baseline Mobility Status: Mobile / at baseline Total: 0 Comment: no tx indicated Frequency Based On Total Score: 0-3 = PRN 4-6 = QID and PRN 7-9 = Q4H and PRN 10-12 = Q2H and PRN Action/Events Respiratory events; Pt has slight improvement post neb. Pt on room air. Good cough. Non-productive. Q6 Duoneb per LIP order. RT KATT 06/16/22 * Sabina Welch MD - 06/16/2022 1130 EDT [facility] Progress Note Admit Date: 06/15/2022 18:47 Date of Service: 06/16/2022 Reason for Admit/CC: shortness of breath 24 Hour Events: - admitted to [facility], see H&P Subjective: Patient reports feeling similar to prior COPD exacerbations. Having a little shortness of breath initially but now feeling better, less wheezy. Is having lower extremity swelling which is close to her baseline, though does acknowledge weight gain prior to admission. Reports dry weight to be 240lb. ROS: Pertinent positives and negatives are described in the HPI. Objective: VS: Temp: [36.7 ??C (98.1 ??F)-37 ??C (98.6 ??F)] , Heart Rate: [76 BPM-98 BPM] , Resp: [16-24] , BP: (109-124)/(62-74) , SpO2: [90 %-99 %] , SpO2: 93 % Physical Exam: General: Sleeping on arrival, awakens to voice but repeatedly falls asleep during exam HEENT: NC/AT, MMM CVS: RRR, S1S2 normal, no murmurs/rubs/gallops Resp: Breathing comfortably on room air, wheezes bilaterally Abdomen: non-distended Extremities: 2+ LE pitting edema bilaterally (L>R). Tender to palpation in b/l calves. Neuro: Very drowsy, repeatedly nodding off mid-answer Skin: No rashes or lesions on visible skin I&O: I&O By Type - 3 Shifts Including Current In: 960 [P.O.:960] Out: 1750 [Urine:1750] Labs: Reviewed WBC/Hgb/Hct/Plts: 3.47/11.2/32.7/88 (06/16 540) Na/K/Cl/CO2: 138/3.5/97/30 (06/16 540) BUN/Cr/glu/ALT/AST/amyl/lip: 15/1.05/147/--/--/--/-- (06/16 540) Imaging: Reviewed - no new imaging. Assessment/Plan: Tara Boothe is a 61 y.o. 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 Patient hemodynamically stable and breathing comfortably on room air. Etiology of AHRF likely 2/2 COPD exacerbation though component of fluid overload due to HFpEF may be contributing. Will continue COPD exacerbation treatment and repeat diuresis today. Acute on chronic hypoxic respiratory failure COPD Exacerbation - supplemental O2 with goal 88-92% - Azithromycin 500 mg PO every day for 3 days - Prednisone 60 mg x5 days - Duonebs Q4H scheduled - [employer] spiriva, symbicort HFpEF Continues to appear volume overloaded, though unclear how far from baseline. BNP normal on admission. - lasix 40mg IV x1 today, goal net negative 500-1000mL - daily BMP ?? CKD stage II Cr of 1.08 at admission, mildly elevated from baseline around 0.8-0.9. - Avoid nephrotoxic meds - daily BMP Cirrhosis 2/2 NAFLD -Continue with [employer] MARK[employer] spironolactone ?? Hypothyroidism -Continue with [employer] levothyroxine 25 mcg ?? GERD Hx of UGIB 2/2 duodenal ulcer -Continue with [employer] protonix 40 mg BID, sucralfate 1 g QID FEN: DIET LOW SODIUM Prophylaxis: lovenox Code Status: Full Code Disposition: anticipate home Sabina Welch MD Family Medicine, PGY2 06/16/22 17:30 #[id number] Secure Chat Cosigned by Abdulaziz Burns MD at 06/16/2022 21:09 EDT Associated attestation - Abdulaziz Burns MD - 06/16/2022 2109 EDT Attestation: I performed or was present during the brown or critical portions of the visit and participated in the management of the patient on 06/16/2022. I agree with the findings and plan of care documented in the resident's/fellow's note. Favoring COPD exacerbation to be the main underlying cause of her dyspnea, but her recent weight gain and excellent response to lasix points toward a likely recurrent HFpEF exacerbation contributing to her clinical picture as well. Abdulaziz Burns MD 06/16/2022 21:08 * Radha Monahan RN - 06/16/2022 0901 EDT 06/16: Patient recently admitted. Full assessment is below. CM will continue to follow for any needs Radha Monahan RN [facility] #[id number] for Leti Armenta RN Initial Case Management/Social Work Assessment and Discharge Plan/Readmission Risk Assessment ?? REASON FOR ADMISSION: Shortness of breath Patient understands reason for admission: (P) Yes ?? PATIENT INFO VERIFIED: (P) PCP, Contact Info, Address Type of housing (single family, condo, apartment, assisted, single room occupancy, [facility] funded hotel room, group [facility]) - [facility] Who does the patient live with? 2 non related housemates Does the patient have access to their own bedroom/bathroom/kitchen - or is it shared with others? shared Name of housing complex (ex [facility], [facility], etc)- Housing Authority/Managing Organization - Community Care Providers (case resource manager, [facility] nurse, etc) name and contact information- [facility] ?? LIVING ARRANGEMENTS AND ACCESSIBILITY ISSUES: Living Arrangements: (S) (P) Private residence, Friends (lives with 2 non related house mates.) Stairs to enter: (P) 2 Handicap access: (P) Railings into home, Grab bars Bathroom located on bedroom level?: (P) Yes ?? What in home social supports are available to the patient? (P) Family member(s), Friends / neighbors Is 13/06 care available? (P) No ?? ADVANCED DIRECTIVES, POA &/or COLST IN PLACE: Healthcare Directive: No, patient does not have advance directive for healthcare treatment Type of Healthcare Directive: Health care treatment directive Copy in Chart: Yes, new copy in paper chart @ [facility] Information Provided on Healthcare Directives: Yes Information on Healthcare Directives Requested: No DIRECTIVES FOR FINANCES: Directive For Finances: No ?? TRANSPORTATION: Transportation: (P) Family Transportation Additional Details: (P) housemate can transport. Patient expects to be discharged to: (P) home ?? CULTURAL, FAITH and/or LANGUAGE factors affecting health care/discharge planning: Spiritual/Cultural Requests: None Language/Literacy Needs Do you need us to provide any communication aids or devices?: No ?? Insurance Information: Medical Insurance: Yes Type of insurance: Medicare, Medicaid Medicare type: A, B Medicaid Type: Community Referred to patient financial services: No ?? Nutrition: ?? DISCHARGE RISK ASSESSMENT: (P) Diagnosis of COPD Total # selected above: (P) Score of 1 - 2: This patient is at LOW RISK for re-hospitalization ?? Tentative plan to address the risk of re-hospitalization for those at HIGH MODERATE RISK: (P) Bringrisk factors to attention of team to be addressed ?? RAPT TOOL: Age: (P) 50-65 Gender: (P) Female Ambulation distance: (P) 2 or more blocks (600ft) Gait device: (P) None Community Services: (P) Home health, MOW, SASH-none of one time a week Will you live with someone who will care for you?: (P) No RAPT Tool Score: (P) 8 Patient expects to be discharged to: (P) home ?? SBIRT: SASQ (Single Alcohol Screening Question) How many times in the past year have you had 4 or more drinks in a single day?: (P) Never How many times in the past year have you used an illegal drug or used a prescription medication fornon-medical reasons?: (P) Never Intervention in place/initiated?: (P) No, not indicated ?? FUNCTIONAL STATUS: Activities patient requires assistance: (P) None Assistive Devices: (P) None ?? COMMUNITY RESOURCES/SUPPORTS: Primary Care Provider: Emigdio Veronica PCP Verified: Specialists: Type of Home Health Services: (P) None DME Provider: RyanP) trinity Fang for Pharmacy: [id number] - [place], [place] - [address] [place] [address] ?? Home Health: Other: ?? POST HOSPITAL TRANSITION PLAN: The patient is a 61 year old previously independent female who livesin a 1 level [facility] with 2 non related house mates who are considered non related supports. Her son Bobby is her informal HCP and primary point of contact. The patient utilizes nocturnal O2 via nasal canula with [employer] as her O2 vendor. Her bathroom is equipped with grab bars and a shower seat. She ambulates independently and has transport support from her house mate. [facility]. CM will follow for team recommendations related to DC. No CM needs anticipated. ?? CHANEL GRANT 05/10/2022 14:28 * Kody Lua, RT - 06/15/2022 2153 EDT Respiratory Consult/Progress Note Indications for Respiratory therapy: COPD exac secondary of fluid overload Data Vitals: Heart Rate: 80 BPM, Resp: 24, SpO2: 94 % FIO2/O2 Device: O2 Flow Rate (L/min): 2 l/min, , O2 Device: Nasal cannula, Protocol Scoring: Bronchodilator/Inhalation Therapy Frequency Breath Sounds: Faint wheezing, decreased throughout Response: No change / no treatment Pulse: <100 Resp Rate: 18-25 SOB: At rest Total Score: 5 Comment:: fluid overload but pt does take MDIs at home Frequency Based On Total Score: 0-4 = PRN 5-7 = QID 8-10 = Q4H 11-12 = Q2H Airway Clearance Therapy Frequency Breath Sounds: Rhonchi / crackles Sputum: Small (tsp) / None Consistency: None Cough Effort: Strong/ non-productive Color: None Total Score: 1 Frequency Based On Total Score: 0-3 = PRN 4-6 = QID and PRN 7-9 = Q4H and PRN 10-11 = Q2H and PRN Hyperinflation Therapy Frequency Breath Sounds: Other Surgery: No X-Ray / Atelectasis: No O2 Requirements: 0-2 L above baseline Mobility Status: In bed Total: 5 Comment: no tx indicated Frequency Based On Total Score: 0-3 = PRN 4-6 = QID and PRN 7-9 = Q4H and PRN 10-12 = Q2H and PRN Action/Events Patient returned to the ER after prior visit for worsening fluid overload despite increased lasix dosage. BBS diminished throughout with wet crackles to bases and expiratory wheezing noted. Given Duoneb and Accuneb treatments with little change noted in breathing. Patient endorses that she takes MDIs at home for treatment and demonstrated proper technique with a spacer. Patient will be able to self administer her MDIs with this admission; a PRN neb order would likely benefit her as well. Patient has a history of sleep apnea but doesn't currently wear CPAP. RT ANDRES 06/15/22 documented in this encounter H&P Notes * Van Fuentes MD - 06/15/[id number] EDT Medicine Admission History & Physical Service Date: 06/15/2022 Admit Date: 06/15/2022 18:47 Primary Care Provider: Emigdio Veronica Chief Complaint: worsening SOB, LE edema HPI Tara Boothe is a 61 y.o. female with a PMHx of: ?? COPD on nocturnal 2 L O2 ?? HFpEF: last TTE 05/10/22 EF of 65% ?? Cirrhosis 2/2 NAFLD: portal vein thrombosis, splenic vein thrombosis with infarct, superior mesenteric vein thrombosis and small esophageal varices, previously on eliquis and lovenox but had to stop 2/2 thrombocytopenia and GIB ?? UGIB (duodenal ulcer) 09/2021 ?? CKD: baseline Cr ~1-1.2 ?? HUEY not on CPAP Pt quite somnolent on exam, difficult to obtain history. Presented to hospital with worsening weight gain and SOB even after increasing lasix dose. Usually uses 2 L at night, but was having to use itocc during the day as well. Also reports nausea and vomiting and decreased urination. After her last hospitalization in April, she reports being on 20 mg of Lasix four days a week and 40 mg of Lasix 3days a week. Then after her ED visit on 06/09, she was started on 60 mg of Lasix every day, but it did not help with her weight gain (she reports 12 lb wt gain in past week). Denies cough (but states in telephone note to PCP yesterday she was reporting cough with frothy sputum), congestion, abd pain, diarrhea, or CP. ED course notable for Given furosemide 80mg IV x1, prednisone, and duonebs. Review of Systems A complete 10 point ROS was performed and pertinent positive and negative findings listed in HPI, otherwise negative. Past Medical History: Diagnosis Date ??? Anemia ??? Anxiety ??? Asthma 12/10/2020 currently not taking - mild persistent - see dr. Veronica 11/20/2021; 01/11/22- uses rescue inhaler twice daily ??? 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 Bursitis right shoulder ??? C. difficile colitis 07/25/2015 Hospitalized after kidney stone removal ??? Chronic kidney disease ??? Cirrhosis of liver (HCC-CMS) ([facility]) ??? Community acquired pneumonia january 2021 ??? COPD exacerbation (HCC-CMS) ([facility]) 04/26/2020 ??? Depression ??? Drug-seeking behavior Per Dr Amelia Tijerina and notes from [facility] patient misconstrued information to several [...] Starr Paige MD) ??? Thyroid disease Social Hx Family Hx Social History Tobacco Use ??? Smoking status: Former Smoker Packs/day: 0.25 Years: 35.00 Pack years: 8.75 Types: Cigarettes Quit date: 08/20/2016 Years since quittin.8 ??? Smokeless tobacco: Never Used ??? Tobacco comment: no cigarette x2 weeks Substance Use Topics ??? Alcohol use: No [...] Neg Hx ??? Endometrial Cancer Neg Hx Surgical Hx Allergies Past Surgical History: Procedure Laterality Date ??? APPENDECTOMY ??? BONE MARROW BIOPSY ??? CHOLECYSTECTOMY ??? CYSTOSCOPY 12/03/2020 ??? GASTRIC FUNDOPLICATION 198912/02/2020 - confirmed by pt ??? HERNIA REPAIR ??? HYSTERECTOMY ??? JOINT REPLACEMENT Bilateral with multiple revisions of both knees ??? KNEE SURGERY Bilateral ??? OTHER SURGICAL HISTORY splenic embolization ??? TONSILLECTOMY ??? UPPER GASTROINTESTINAL ENDOSCOPY multiple ??? WRIST SURGERY Right after fracture Allergies Allergen Reactions ??? Metoclopramide Nausea Only, [...] ??? Prochlorperazine ??? Reglan [Metoclopramide Hcl] Rash [employer] medications: (Finalized list pending formal med rec) Current Facility-Administered Medications Medication Route Frequency ??? azithromycin (ZITHROMAX) tablet 500 mg oral DAILY ??? budesonide-formoterol HFA (SYMBICORT) 160-4.5 mcg/actuation inhaler 2 Puff inhalation DAILY ??? ipratropium-albuteroL (DUONEB) 0.5 mg-3 mg(2.5 mg base)/3 mL nebulizer solution 3 mL nebulization Q4H ??? levothyroxine (SYNTHROID) tablet 25 mcg oral DAILY BEFORE BREAKFAST ??? lidocaine (PF) 10 mg/mL (1 %) injection 2 mg intradermal PRN ??? olopatadine (PATANOL) 0.1 % ophthalmic solution 1 Drop both eyes Daily PRN ??? oxyCODONE (ROXICODONE) immediate release tablet 5 mg oral Q8H PRN ??? pantoprazole (PROTONIX) tablet 40 mg oral BID ??? polyethylene glycol 3350 (MIRALAX) packet 17 g oral Daily PRN ??? predniSONE (DELTASONE) tablet 60 mg oral DAILY ??? senna (SENOKOT) tablet 2 Tablet oral QHS ??? spironolactone (ALDACTONE) tablet 50 mg oral DAILY ??? tiotropium (SPIRIVA) 18 mcg inhalation capsule 18 mcg inhalation DAILY Facility-Administered Medications Ordered in Other Encounters Medication Route Frequency ??? albuterol (ACCUNEB) 2.5 [...] Reglan [Metoclopramide Hcl] Rash Objective Vitals Temp: [36.7 ??C (98.1 ??F)-37 ??C (98.6 ??F)] , Heart Rate: [80 BPM-83 BPM] , Pulse: [86] , Resp: [17-26] , BP: (110-117)/(56-74) , SpO2: [92 %-95 %] , O2 Flow Rate (L/min): 2 l/min Numeric Pain Level (Scale 1-10): 8 Weight: Weight : (!) 113.4 kg (250 lb) Body mass index is 42.91 kg/m??. Physical Exam General: Sleeping on arrival, awakens to voice but falls asleep during exam HEENT: Normocephalic/atraumatic, MMM, no scleral icterus, EOMI CVS: RRR, S1S2 normal, no murmurs/rubs/gallops Resp: Normal work of breathing on 2 L. Diffuse wheezing heard throughout, no crackles. Abdomen: Protuberant, TTP R and LUQ. BS present. Extremities: 2+ LE pitting edema bilaterally. Pulses intact. Neuro: Difficult to assess, falls asleep during interview and exam, Skin: No rashes, lesions, petechiae Psych: Appropriate mood and affect Labs I have personally reviewed Recent Labs 06/15/221914 WBC 4.09 RBC 3.86 HGB 10.9* HCT 33.4* MCV 87 MCH 28.2 MCHC 32.6 PLT 98* NEUTROABS 3.07 Recent Labs 06/15/221914 NA 137 K 3.7 CL 98 CO2 33* BUN 14 CREATININE 1.08* CALCIUM 8.5 MG 1.8 Recent Labs 06/15/221914 TROPONINI <0.034 O2 Saturation, Venous 81 pH, Venous 7.40 PCO2, Venous 50 PO2, Venous 46 tCO2, Venous 32 (H) Base Excess 4.30 (H) Oxygen Therapy See Comment Temperature 37.[address] ABDOMEN PELVIS WO CONTRAST Result Date: 06/10/2022 1. No acute abnormality abdomen or pelvis, specifically no evidence of bowel obstruction. 2. Interval increase in size of a solid pulmonary nodule, now measuring 2 cm in the left lung base, consider PET CT. 3. Additional unchanged findings noted above including partial infarction of the spleen and enlargement and partial thrombosis of the portal vein. There is now small volume ascites adjacent tothe spleen. This study was performed without intravenous contrast due to the international contrastshortage. This may result in decreased sensitivity and/or specificity. I have personally reviewed the images and the above interpretation and agree with the findings. XR CHEST 2 VIEWS Result Date: 06/15/2022 1. Subsegmental atelectasis and/or scarring in the left lung base. 2. Mild interstitial prominence in the lung bases, possibly representing pulmonary edema but improved compared to prior. Image quality reduced by patient's body habitus. XR CHEST PORTABLE 1 VIEW Result Date: 06/09/2022 1. Findings suggestive of hydrostatic pulmonary edema, as detailed above Micro: - COVID: Lab Results Component Value Date COVIDUV Negative 06/09/2022 Assessment Tara Boothe is a 61 y.o. female with a PMHx significant for cirrhosis 2/2 NAFLD, HFpEF, COPD, GIB 2/2 duodenal ulcer, hypothyroidism, CKD, HUEY, GERD, chronic hypoxic respiratory failure on nocturnal O2 who p/w worsening SOB and weight gain. Admitted for AHRF likely 2/2 COPD exacerbation. Plan Acute on chronic hypoxic respiratory failure Hx of COPD, HFpEF On 2 L at night. NTproBNP 41, neg troponin, normal EKG. Pt does have thromboses not currently on anti-coagulation, no signs of DVT on exam, not tachycardic so PE less likely. Worsening weight gain per pt on increasing lasix doses and some evidence of pulm edema on CXR, but normal BNP, no crackles on exam. Mild hypercarbia on VBG and wheezing more suggestive of COPD exacerbation w/o clear incitingfactor. Pt's respiratory status improved after duonebs, prednisone, and 80 mg IV lasix. - Supplemental oxygen PRN for SPO2 > 88% - Azithromycin 500 mg PO every day for 3 days - Prednisone 60 mg x5 days - Duonebs Q4H scheduled - [employer] spiriva, symbicort - Tele, trend troponin - Can consider re-dosing lasix Cirrhosis 2/2 NAFLD -Continue with [employer] spironolactone CKD Cr appears to be near baseline -CTM after diuresis -Avoid nephrotoxic meds Hypothyroidism -Continue with [employer] levothyroxine 25 mcg GERD Hx of UGIB 2/2 duodenal ulcer -Continue with [employer] protonix 40 mg BID, sucralfate 1 g QID Med rec -Complete in am VTE Prophylaxis Lovenox 40 mg subcutaneous daily Code: Full Discharge Plan Home or self care Consults None Admission Status Observation. Anticipated duration of hospitalization is less than two midnights. Em Rosales MD Internal Medicine PGY1 Epic chat or pager ([phone]) 06/16/2022 1:11 ATTENDING ATTESTATION: Date of service: 06/15/2022 I have interviewed and examined the patient on 06/15/2022. I have personally reviewed the ECG, laboratory data, imaging studies, and prior records. I have discussed the case with the ED provider and Dr. Rosales (IM resident). I agree with the findings and plan of care as documented in the resident's note. Additions or editsare documented in purple. Van Fuentes MD 06/22/2022 4:09 documented in this encounter ED Notes * Fausto Roberts MD - 06/15/20221921 EDT This patient received an evaluation and medical screening exam for emergent medical conditions at the [facility]. Scribe attestation: This documentation is recorded by Kavon Peres acting as Scribe under the direction and presence of Fausto Roberts MD. Fausto Roberts MD: I personally performed the services recorded by the scribe in my presence. Iconfirm the scribe's documentation has been reviewed by me to accurately and completely record my work, treatment, procedures, and medical decision making. HPI Tara Boothe is a 61 y.o. female with PMH including COPD, CHF, and chronic vein thrombosis who presents to the ED for edema and shortness of breath. She was recently seen here on 06/09, after whichshe reports feeling slightly better. Prior to this visit, she reports being on 20 mg of Lasix four days a week and 40 mg of Lasix 3 days a week. She now reports being on 60 mg of Lasix every day, butit hasn't helped with her weight gain. The last couple of days, she also says she hasn't been able to keep food or medicine down, and she hasn't been peeing much this afternoon. She recently went on a trip to [place]. She uses an inhaler, but it doesn't always help with her shortness of breath. History was provided by: Patient and medical chart Patient's pertinent PMH, FH, SH were reviewed and updated as needed. ROS A 10-point review of systems was performed. The patient answered negative to all questions with theexceptions of those explicitly detailed as positives in the HPI. Pertinent negatives are also explicitly stated. Physical Exam Vital Signs Temp: 36.8 ??C (98.2 ??F) Temp src: Temporal Pulse: 86 Heart Rate: 80 BPM Resp: 24 SpO2: 94 % BP: 117/56 BP Device: BP Machine BP Patient Position: Sitting BP Cuff Location: Left arm O2 Device: None (Room air) Nursing notes and vital signs were reviewed. Constitutional: Ill-appearing. No acute distress. Speaking in full sentences Head: Normocephalic and atraumatic, no tenderness Eyes: Pupils equal and reactive to light, no scleral icterus Mouth: Moist oral mucosa without apparent lesions Neck: Full ROM, no cervical lymphadenopathy Heart: Regular rate and rhythm without murmurs, gallops, rub. Lungs: Diffuse expiratory wheezing with good air movement Abdomen: Obese and soft. Diffuse tenderness upper abdominal, and slightly in the left lower quadrant. No rebounds or guarding Skin: No overt rashes on exposed skin Extremities: 2+ bilateral pedal edema. Legs diffusely tender bilaterally. Diffusely tender. No cords. Distal pulses week but intact. Neuro: Grossly neurologically intact with normal speech, strength, and coordination. Psych: No agitation or overt thought disorder Medical Decision Making The differential diagnosis for this patient includes but is not limited to: CHF exacerbation, COPD exacerbation, pulmonary hypertension pulmonary fibrosis Laboratory, Imaging, and Other Data Results Labs Reviewed COMPLETE BLOOD COUNT AND DIFFERENTIAL - Abnormal Result Value Status WBC 4.09 Final RBC 3.86 Final Hemoglobin 10.9 (*) Final HCT 33.4 (*) Final MCV 87 Final MCH 28.2 Final MCHC 32.6 Final RDW-CV 14.8 (*) Final RDW-SD 46.5 Final PLT 98 (*) Final MPV 9.6 Final Neutrophils 75.2 Final Lymphocytes 9.0 Final Monocytes 12.2 Final Eosinophils 2.9 Final Basophils 0.5 Final Immature Grans 0.2 Final Absolute Neutrophils 3.07 Final Absolute Lymphocytes 0.37 (*) Final Absolute Monocytes 0.50 Final Absolute Eosinophils 0.12 Final Absolute Basophils 0.02 Final Absolute Immature Grans 0.01 Final Type of Differential: Auto Final BASIC METABOLIC PANEL (BMP) - Abnormal Sodium 137 Final Potassium 3.7 Final Chloride 98 Final CO2 Total 33 (*) Final Anion Gap 6 Final Glucose 86 Final Calcium 8.5 Final BUN 14 Final Creatinine 1.08 (*) Final eGFR 58 (*) Final TROPONIN I - Normal Troponin I (ng/mL) <0.034 Final Narrative: The results of this assay can be falsely lowered due to the consumption of Biotin. MAGNESIUM - Normal Magnesium 1.8 Final NT PRO BNP - Normal NT-pro BNP 41 Final COVID-19 TESTING COVID-19 TEST [facility] PCR HOLD BLUE TOP Hold Hold Final POCT URINE CLINITEK (DIPSTICK) - DOES NOT REFLEX Narrative: The following orders were created for panel order POCT URINE CLINITEK (DIPSTICK) - DOES NOT REFLEX. Procedure Abnormality Status --------- ------ POCT URINE DIPSTICK, CLI...[[id number]] POCT CSN BARCODE URINE D...[[id number]] Please view results for these tests on the individual orders. POCT CSN BARCODE URINE DIPSTICK POCT URINE DIPSTICK, CLINITEK Imaging Results XR CHEST 2 VIEWS (Final result) Result time 06/15/22 20:29:22 Final result Impression: 1. Subsegmental atelectasis and/or scarring in the left lung base. 2. Mild interstitial prominence in the lung bases, possibly representing pulmonary edema but improved compared to prior. Image quality reduced by patient's body habitus. Narrative: XR CHEST 2 VIEWS 06/15/2022 8:05 PM CLINICAL HISTORY/COMMENTS: sob, chf COMPARISON: Chest radiographs 06/09/2022, 06/06/2022 and 04/26/2022.. TECHNIQUE: Frontal and lateral views of the chest were performed. FINDINGS: Soft tissues and extrathoracic findings: Embolization coils are present in the left upper quadrant,similar to prior CT scan. Bones: Normal for age. Cardiac and mediastinal contours: Normal. Lungs: Bandlike opacities in the left mid and lower lung likely represents subsegmental atelectasis. Mild interstitial prominence in the inferior lungs, slightly improved from prior. No lobar consolidation. Pleura/diaphragms: Normal. Twelve-lead tracing. Normal sinus rhythm rate of 82. Intervals normal, axis normal, QRS morphology normal, ST and T-wave morphology normal. Overall impression normal EKG. (All pertinent data was obtained, reviewed, and interpreted by me, contemporaneously with patient care. Radiology interpretation also reviewed, if available.) Procedures Procedures ED Course A medical screening exam was performed. Patient presents with increasing shortness of breath. She is increased her Lasix usage at home to 60 mg a day but despite this report she is put on about 12 pounds over the last week. She was seen inthe ED recently and was diuresed and felt somewhat better after that but now feels worse again. Sheis usually on O2 as needed but has needed it 24 hours a day at 2 L lately and still feels breathless. Does not have a home O2 sat monitor. Exam did show edema to both legs however lungs showed only wheezing with no rales. Work-up showed normal BNP of 41 normal troponin at less than 0.034 with her other labs showing a very mild MUSA with a creatinine 1.08 low H&H of 11 and 33 but these are all similar to previous chart values. She was given 80 mg Lasix IV with good diuresis and also DuoNeb. She had minimal improvement after initial round of treatment with slightly increased ease of breathing and decreased wheezing however still requiring O2 with O2 sat 92% on 2 L desaturating to high 80s on room air. Second round of albuterol was given as well as prednisone. At this point it seems that she has a mixed picture probably both an exacerbation of COPD and her underlying hfPef. Given that she has been gaining weight at home and home therapy has been ineffective I think she will need admission so she was admitted to internal medicine. She is admitted in slightly improved condition. Clinical Impression Final diagnoses: COPD exacerbation ([facility]) ([facility]) Acute on chronic congestive heart failure, unspecified heart failure type ([facility]) ([facility]) Pain Management While under my care in the Emergency Department, the patient's pain was managed to an adequate level weighing risk vs. benefit of medication. Pain level at disposition was 1/10. Any further pain treatment will be at the discretion of the provider following up with the patient based on their clinical assessment. Condition at departure from the Emergency Department: Fair Disposition Disposition decisions were made weighing risks and benefits of hospitalization vs. outpatient treatment, the risk for further decompensation, and the patient's wishes. - If discharged: the patient was stable, improved, or requested discharge. Prior to discharge my usual and customary return precautions were reviewed with the patient and/or family. This included follow-up instructions and reasons to return to the Emergency Department if condition worsens, does notimprove as expected, or other new concerns arise. - If admitted: the patient???s condition was severe enough to require additional inpatient evaluation and treatment, or the patient was at risk of sudden decompensation. * Emigdio Davies - 06/15/2022 1717 EDT TCALL: Gena Boothe 60 [facility] refers pt to e.d for eval. CC: Weight gain from 239 to 250 in one week, dyspnea, pitting edema. Lasix increased. Seen here 06/09 for fluid overload, getting worse. (GMD) documented in this encounter Miscellaneous Notes * Heart Failure Education - Amanda Conteh RN - 06/18/2022 0952 EDT Heart failure nurse clinician reviewed heart failure education with pt at the bedside. Please see Education tab for education provided and pt's response. Amanda Conteh RN, CHFN Heart Failure Nurse Clinician Pager #[phone] * Plan of Care - Sindhu Arroyo RN - 06/18/2022 0605 EDT Received pt from [place] [facility]. Admitted on 06/15/2022 with exacerbation of copd. Has received tx for copd and fluid overload, on fluid restriction of 1500ml, expiratory wheezes, on RA, trace edema to feet, ROBB, a&0x4, cont of b&b, skin intact, IV to RFA intact, c/o chronic pain to back, rested well throughout night. * Plan of Care - Flores Macias RN - 06/17/2022 2133 EDT Data: Patient admitted for COPD/CHF exacerbation. Alert and oriented X3 patient complains of chronic back pain 8/10 and ROBB. Denies SOB and CP. VSS. Patient being transferred to B3. Action: Patient informed of transfer. Report called to [place] [facility]. Response: Patient transferred to B3 via wheelchair. FLORES MACIAS RN 06/17/2022 21:34 * Plan of Care - Kenisha Mcgarry RN - 06/17/2022 1759 EDT Data: Assumed care at 0700. Pt admitted w/ COPD and HF exacerbation. Continued diuresis today w/ 60mg IVP Lasix X2. Pt is A+Ox3, VSS, on room air, ROBB, edematous in BLE, crackles/expiratory wheezes heard upon auscultation, c/o chronic 8/10 back pain, no other pain reported this shift. Action: PRN 5mg PO oxycodone given for pain, other meds given per MAR, assessments completed as documented in the flowsheet, monitored tele, VS, and I/Os. Educated pt on the plan of care. Response: Pt is resting comfortably, denies needs at this time, and is in accordance with the plan of care. KENISHA MCGARRY RN 06/17/2022 11:35 Problem: Daily Care Plan Goals Goal: Care Plan Documentation Outcome: Ongoing Problem: High Fall Risk: Goal: Patient will Remain Free of Falls due to Med. Side Effects Outcome: Ongoing Problem: High Fall Risk: Goal: Patient Will Remain Free from Fall-Related Injury Outcome: Ongoing Problem: High Fall Risk: Goal: Patient will Remain Free of Falls due to Dizziness/Vertigo Outcome: Ongoing Problem: Sensory: Goal: Ability to compensate for vision loss will be supported Outcome: Ongoing Problem: Cardiac: Goal: Ability to maintain clinical measurements within defined limits will improve Description: Review CHF zones with patient & have them report their zone each shift. Echo - to determine EF Outcome: Ongoing Problem: Respiratory: Goal: Ability to maintain adequate ventilation will improve Outcome: Ongoing Problem: Fluid Volume: Goal: Ability to achieve fluid & electrolyte balance will improve Outcome: Ongoing Goal: Risk for excess fluid volume will decrease Outcome: Ongoing * Plan of Care - Benito Cho RN - 06/17/2022 0250 EDT Data: Pt admitted for COPD and CHF exacerbation. Pt is A/Ox3, independent, no c/o of CP, 5/10 back pain. Pt is ROBB, 2L NC at night, O2 sats in the low 90s. Action: Heat pack and oxy given. Medication education provided. Response: Pt stated they felt very tired even after sleeping all day. Pt slept the majority of the night. No c/o of CP or dizziness. Pt able to make needs known. Problem: Daily Care Plan Goals Goal: Care Plan Documentation Outcome: Ongoing Problem: High Fall Risk: Goal: Patient Will Remain Free from Fall-Related Injury Outcome: Ongoing * Plan of Care - Kristal Redding RN - 06/16/2022 1644 EDT D: Pt admitted for SOB and BLE swelling. She has chronic back pain for which she takes oxycodone 5mg TID at home. A: Oxycodone prescribed Q8hrs. Pain assessment complete. RN discussed pain control regimen with MD Welch. Pt has 8/10 back pain as documented, but is not yet due for pain medications as it has not been 8 hours since previous administration. Orders changed to TID to match home regimen. R: Pt states she takes her home oxycodone three times daily while awake (morning, late afternoon, and bedtime). She rates her pain 8/10. She was relieved to have home pain medication regimen reinstated to help manage her chronic back pain. She up walking in room at this time. Problem: Daily Care Plan Goals Goal: Care Plan Documentation Outcome: Met This Shift Flowsheets (Taken 06/16/2022 1633) Area of Focus: Pain/ Comfort Goal This Shift: Improve pain control regimen * Plan of Care - Adi Molina RN - 06/16/2022 1430 EDT Data: Assumed care of pt at 0700. Pt admitted for COPD and CHF exacerbation on 06/15. Pt NSR on telew/ HR in the 's. Pt endorsed lower back pain 8/10. Pt denies chest pain and discomfort. Action: Assessment as documented in flow sheet. Admin meds - see JAN. Encouraged ambulation on unit. Education provided for medications. Reinforced strict I/O. Added 2L NC 02 while sleeping as O2 sats to 86-87%. Response: Pt amb in room only. Pt maintained O2 sat 90-91% on 2L NC Pt resting comfortably. ADI MOLINA RN 06/16/2022 15:58 Problem: Daily Care Plan Goals Goal: Care Plan Documentation Outcome: Met This Shift Problem: High Fall Risk: Goal: Patient Will Remain Free from Fall-Related Injury Outcome: Met This Shift * Plan of Care - Dom Heredia RN - 06/16/2022 0105 EDT Problem: High Fall Risk: Goal: Patient will Remain Free of Falls due to Med. Side Effects Outcome: Ongoing Problem: High Fall Risk: Goal: Patient will Remain Free of Falls due to Dizziness/Vertigo Outcome: Ongoing Data: Pt is a 61 y.o. female , alert and oriented x3,follows commands. Pt currently is not on oxygen per doctor request. Pt with complaints of pain 8/10 in upper abdomen and upper back. Action: gave meds per doctor order , SEE MAR. HOB is in semi-carrasco. Response: Pt tolerated room air well and O2 sat is above 95% without oxygen. Pt is resting after pain meds. NURIA MATHIS RN 06/16/2022 1:36 Blood pressure 110/66, pulse 86, temperature 36.7 ??C (98.1 ??F),temperature source Oral, resp. rate 18, height 162.6 cm (64), weight (!) 113.4 kg (250 lb), SpO2 92 %. documented in this encounter Plan of Treatment Upcoming Encounters Date Type Department Care Team (Late st Contact Info) Description 01/04/2025 13:00 EST Office Visit [facility] [place] [address] Gagandeep Rome MD [address] [place] [address], [address] [place] [id number] 02/11/2025 13:30 EDT Telemedicine [facility] Hematology & Oncology - [facility] [address] [place], [place] [id number] Dana Padilla MD [address] [facility], [address] [place] [id number] documented as of this encounter Procedures Procedure Name Priority Date/Time Associated Diagnosis Comments ECG REPORT - SCANNED 06/22/2022 13:31 EDT COMPLETE BLOOD COUNT Routine 06/18/2022 8:33 EDT BASIC METABOLIC PANEL (BMP) Routine 06/18/2022 8:33 EDT ECG REPORT - SCANNED 06/17/2022 16:06 EDT NEBULIZER TX INTERMITTENT Routine 06/17/2022 15:00 EDT COMPLETE BLOOD COUNT Routine 06/17/2022 11:23 EDT BASIC METABOLIC PANEL (BMP) Routine 06/17/2022 11:23 EDT NEBULIZER TX INTERMITTENT Routine 06/17/2022 10:00 EDT DRY POWDERED OR METERED DOSE INHALER Routine 06/17/2022 7:00 EDT NEBULIZER TX INTERMITTENT Routine 06/17/2022 6:00 EDT DRY POWDERED OR METERED DOSE INHALER Routine 06/16/2022 19:10 EDT DRY POWDERED OR METERED DOSE INHALER Routine 06/16/2022 19:10 EDT DRY POWDERED OR METERED DOSE INHALER Routine 06/16/2022 19:10 EDT NEBULIZER TX INTERMITTENT Routine 06/16/2022 19:10 EDT NEBULIZER TX INTERMITTENT Routine 06/16/2022 19:10 EDT NEBULIZER TX INTERMITTENT Routine 06/16/2022 19:10 EDT NEBULIZER TX INTERMITTENT Routine 06/16/2022 19:10 EDT NEBULIZER TX INTERMITTENT Routine 06/16/2022 19:10 EDT US LOWER VENOUS DUPLEX (DVT) BILATERAL Routine 06/16/2022 13:05 EDT TROPONIN I Routine 06/16/2022 5:40 EDT COMPLETE BLOOD COUNT Routine 06/16/2022 5:40 EDT BASIC METABOLIC PANEL (BMP) Routine 06/16/2022 5:40 EDT BLOOD GASES, VENOUS STAT 06/16/2022 0 :51 EDT ZZCOVID-19 TEST [facility] PCR Today 06/15/2022 21:49 EDT COVID-19 TESTING Routine 06/15/2022 21:4 9 EDT XR CHEST 2 VIEWS STAT 06/15/2022 20:2 1 EDT HOLD BLUE TOP STAT 06/15/2022 19:15 EDT TROPONIN I STAT 06/15/2022 19:15 EDT COMPLETE BLOOD COUNT AND DIFFERENTIAL STAT 06/15/2022 19:15 EDT NT PRO BNP Add-On 06/15/2022 19:15 EDT MAGNESIUM STAT 06/15/2022 19:15 EDT BASIC METABOLIC PANEL (BMP) STAT 06/15/2022 19:15 EDT EKG 12-LEAD STAT 06/15/2022 17:27 EDT documented in this encounter Results * ECG REPORT - SCANNED (06/22/2022 13:31 EDT) 06/22/2022 13:3 1 EDT us Scan 2 Ambulance Mechanic PROCEDURE/MINOR SURGICAL OR DERABLES Final Result * (ABNORMAL) COMPLETE BLOOD COUNT (06/18/2022 8:33 EDT) Pathologist [facility] WBC 5.64 4.00 - 12.40 K/cmm 06/18/2022 9:02 [facility] RBC 4.10 3.86 - 5.04 M/cmm 06/18/2022 9:02 [facility] Hemoglobin 11.8 11.6 - 15.2 gm/dL 06/18/2022 9:02 [facility] HCT 36.5 34.9 - 44.4 % 06/18/2022 9:02 [facility] MCV 89 81 - 98 fl 06/18/2022 9:02 [facility] MCH 28.8 26.7 - 33.3 pg 06/18/2022 9:02 [facility] MCHC 32.3 32.1 - 35.9 gm/dL 06/18/2022 9:02 [facility] RDW-CV 15.1(H) <14.7 % 06/18/2022 9:02 [facility] RDW-SD 49.5 <50.4 fl 06/18/2022 9:02 [facility] PLT 89(L) 141 - 377 K/cmm 06/18/2022 9:02 [facility] MPV 10.3 9.5 - 12.7 fl 06/18/2022 9:02 [facility] Blood VENOUS BLOOD / Unknown Venipuncture / Unknown 06/18/2022 8:33 EDT 06/18/2022 8:57 EDT us Sabina Welch MD HEMATOLOGY & PF4 ORDERABLES Pricila l Result [facility] [address] [place] [address] * (ABNORMAL) BASIC METABOLIC PANEL (BMP) (06/18/2022 8:33 EDT) Sodium 138 136 - 145 mmol/L 06/18/2022 9:39 EDT [facility] Potassium 3.8 3.5 - 5.0 mmol/L 06/18/2022 9:39 [facility] Chloride 99 96 - 110 mmol/L 06/18/2022 9:39 [facility] CO2 Total 29 22 - 32 mmol/L 06/18/2022 9:39 [facility] Anion Gap 10 5 - 14 06/18/2022 9:39 T [facility] Glucose 98 70 - 100 mg/dL 06/18/2022 9:39 [facility] Calcium 8.4(L) 8.5 - 10.5 mg/dL 06/18/2022 9:39 [facility] BUN 26 10 - 26 mg/dL 06/18/2022 9:39 [facility] Creatinine 1.00 0.52 - 1.04 mg/dL 06/18/2022 9:39 [facility] eGFR 64 >60 mL/min/1.73 m2 06/18/2022 9:39 [facility] Blood VENOUS BLOOD / Unknown Venipuncture / Unknown 06/18/2022 8:33 EDT 06/18/2022 9:09 EDT us Sabina Welch MD CHEMISTRY & BLOOD GAS ORDERABLES Final Result [facility] [address] [place] [address] * ECG REPORT - SCANNED (06/17/2022 16:06 EDT) 06/17/2022 16:0 6 EDT us Scan 2 Ambulance Mechanic PROCEDURE/MINOR SURGICAL OR DERABLES Final Result * (ABNORMAL) COMPLETE BLOOD COUNT (06/17/2022 11:23 EDT) WBC 6.69 4.00 - 12.40 K/cmm 06/17/2022 12:36 EDT [facility] RBC 3.96 3.86 - 5.04 M/cmm 06/17/2022 12:36 T [facility] Hemoglobin 11.3(L) 11.6 - 15.2 gm/dL 06/17/2022 12:36 [facility] HCT 34.6(L) 34.9 - 44.4 % 06/17/2022 12:36 T [facility] MCV 87 81 - 98 fl 06/17/2022 12:36 T [facility] MCH 28.5 26.7 - 33.3 pg 06/17/2022 12:36 [facility] MCHC 32.7 32.1 - 35.9 gm/dL 06/17/2022 12:36 [facility] RDW-CV 15.1(H) <14.7 % 06/17/2022 12:36 [facility] RDW-SD 48.5 <50.4 fl 06/17/2022 12:36 [facility] PLT 96(L) 141 - 377 K/cmm 06/17/2022 12:36 [facility] MPV 10.3 9.5 - 12.7 fl 06/17/2022 12:36 [facility] Blood VENOUS BLOOD / Unknown Venipuncture / Unknown 06/17/2022 11:23 EDT 06/17/2022 12:27 EDT us Sabina Welch MD HEMATOLOGY & PF4 ORDERABLES Pricila l Result [facility] [address] [place] [address] * (ABNORMAL) BASIC METABOLIC PANEL (BMP) (06/17/2022 11:23 EDT) Sodium 138 136 - 145 mmol/L 06/17/2022 13:00 EDT [facility] Potassium 3.9 3.5 - 5.0 mmol/L 06/17/2022 13:00 EDT [facility] Chloride 97 96 - 110 mmol/L 06/17/2022 13:00 EDT [facility] CO2 Total 30 22 - 32 mmol/L 06/17/2022 13:00 T [facility] Anion Gap 11 5 - 14 06/17/2022 13:00 EDT [facility] Glucose 112(H) 70 - 100 mg/dL 06/17/2022 13:00 EDT [facility] Calcium 8.4(L) 8.5 - 10.5 mg/dL 06/17/2022 13:00 T [facility] BUN 23 10 - 26 mg/dL 06/17/2022 13:00 [facility] Creatinine 1.04 0.52 - 1.04 mg/dL 06/17/2022 13:00 [facility] eGFR 61 >60 mL/min/1.73 m2 06/17/2022 13:00 [facility] Blood VENOUS BLOOD / Unknown Venipuncture / Unknown 06/17/2022 11:23 EDT 06/17/2022 12:29 EDT us Sabina Welch MD CHEMISTRY & BLOOD GAS ORDERABLES Final Result Performing Organization Address City/State/[facility] Co de Phone Number [facility] [address] [place] [address] * US LOWER VENOUS DUPLEX (DVT) BILATERAL (06/16/2022 13:05 EDT) Anatomical Region Laterality Modality Vascular Ultrasound Narrative 06/21/2022 8:55 EDT ?No evidence of deep or superficial venous thrombosis in the right lower extremity. ?No evidence of deep or superficial venous thrombosis in the left lower extremity. Right Lower Venous Other The right external iliac, common femoral, proximal greater saphenous, proximal profunda femoris, femoral, popliteal, peroneal, and posterior tibial veins demonstrate normal Doppler flow/waveforms and compression. Left Lower Venous Other The left external iliac, common femoral, proximal greater saphenous, proximal profunda femoris, femoral, popliteal, peroneal, and posterior tibial veins demonstrate normal Doppler flow/waveforms and compression. Venous HPI and Indications BLE pain and swelling. Venous Past Medical History Former tobacco use, Obesity and Prior PE. Cris Chauhan MD IMG US VASCULAR ORDERABLES Final Result * TROPONIN I (06/16/2022 5:40 EDT) [facility] Troponin I (ng/mL) <0.034 <0.034 ng/mL 06/16/2022 6:49 EDT [facility] Blood VENOUS BLOOD / Unknown Venipuncture / Unknown 06/16/2022 5:40 EDT 06/16/2022 6:02 EDT Narrative [facility] - 06/16/2022 6:49 EDT The results of this assay can be falsely lowered due to the consumption of Biotin. Em Rosales MD CHEMISTRY & BLOOD GAS ORDERAB LES Final Result [facility] [address] [place] [address] * (ABNORMAL) COMPLETE BLOOD COUNT (06/16/2022 5:40 EDT) [facility] WBC 3.47(L) 4.00 - 12.40 K/cmm 06/16/2022 6:12 [facility] RBC 3.85(L) 3.86 - 5.04 M/cmm 06/16/2022 6:12 [facility] Hemoglobin 11.2(L) 11.6 - 15.2 gm/dL 06/16/2022 6:12 [facility] HCT 32.7(L) 34.9 - 44.4 % 06/16/2022 6:12 [facility] MCV 85 81 - 98 fl 06/16/2022 6:12 [facility] MCH 29.1 26.7 - 33.3 pg 06/16/2022 6:12 [facility] MCHC 34.3 32.1 - 35.9 gm/dL 06/16/2022 6:12 [facility] RDW-CV 14.7(H) <14.7 % 06/16/2022 6:12 T [facility] RDW-SD 45.3 <50.4 fl 06/16/2022 6:12 [facility] PLT 88(L) 141 - 377 K/cmm 06/16/2022 6:12 T [facility] MPV 10.1 9.5 - 12.7 fl 06/16/2022 6:12 [facility] Blood VENOUS BLOOD / Unknown Venipuncture / Unknown 06/16/2022 5:40 EDT 06/16/2022 6:03 EDT us Em Rosales MD HEMATOLOGY & PF4 ORDERABLES F inal Result [facility] [address] [place] [address] * (ABNORMAL) BASIC METABOLIC PANEL (BMP) (06/16/2022 5:40 EDT) Sodium 138 136 - 145 mmol/L 06/16/2022 6:33 [facility] Potassium 3.5 3.5 - 5.0 mmol/L 06/16/2022 6:33 [facility] Chloride 97 96 - 110 mmol/L 06/16/2022 6:33 [facility] CO2 Total 30 22 - 32 mmol/L 06/16/2022 6:33 [facility] Anion Gap 11 5 - 14 06/16/2022 6:33 [facility] Glucose 147(H) 70 - 100 mg/dL 06/16/2022 6:33 [facility] Calcium 8.5 8.5 - 10.5 mg/dL 06/16/2022 6:33 [facility] BUN 15 10 - 26 mg/dL 06/16/2022 6:33 [facility] Creatinine 1.05(H) 0.52 - 1.04 mg/dL 06/16/2022 6:33 EDT [facility] eGFR 60(L) >60 mL/min/1.73 m2 06/16/2022 6:33 EDT [facility] Blood VENOUS BLOOD / Unknown Venipuncture / Unknown 06/16/2022 5:40 EDT 06/16/2022 6:02 EDT Em Rosales MD CHEMISTRY & BLOOD GAS ORDERAB LES Final Result [facility] [address] [place] [address] * (ABNORMAL) BLOOD GASES, VENOUS (06/16/2022 0:51 EDT) pH, Venous 7.40 7.31 - 7.41 06/16/2022 1:01 T [facility] pCO2, Venous 50 41 - 51 mmHg 06/16/2022 1:01 [facility] pO2, Venous 46 30 - 50 mmHg 06/16/2022 1:01 [facility] tCO2, Venous 32(H) 22 - 28 mmol/L 06/16/2022 1:01 [facility] Temperature 37.0 C 06/16/2022 1:01 [facility] Comment:Body Temp not noted. 37 degrees assumed. O2 Saturation, Venous 81 60 - 85 % 06/16/2022 1:01 T [facility] Oxygen Therapy (FIO2) 06/16/2022 1:01 [facility] Comment:Oxygen therapy not n oted in system. Base Level 4.30(H) -2.00 - 3.00 mmol/L 06/16/2022 1:01 T [facility] Blood VENOUS BLOOD / Unknown Venipuncture / Unknown 06/16/2022 0:51 EDT 06/16/2022 0:55 EDT Em Rosales MD CHEMISTRY & BLOOD GAS ORDERAB LES Final Result Performing Organization Address City/State/[facility] Co de Phone Number [facility] [address] [place] [address] * COVID-19 TEST [facility] PCR (06/15/2022 21:49 EDT) Swab ENTIRE NASOPHARYNX / Unknown Swab / Unknown 06/15/2022 21:49 EDT 06/15/2022 21:58 EDT Fausto Roberts MD MICROBIOLOGY - GENERAL ORDER YANN Final Result Performing Organization Address [facility] Co de Phone Number [facility] [address] [place] [address] * COVID-19 TESTING (06/15/2022 21:49 EDT) Pathologist [facility] COVID-19 rt-PCR Result Negative Negative 06/16/2022 1:43 EDT [facility] Comment: This test has not [...] history, and epidemiological information. Performed on the [employer] Fusion instrument Performing Lab [place] [facility] 06/16/2022 1:43 EDT [facility] Swab ENTIRE NASOPHARYNX / Unknown Swab / Unknown 06/15/2022 21:49 EDT 06/15/2022 21:58 EDT Fausto Roberts MD MICROBIOLOGY - GENERAL ORDER YANN Final Result Performing Organization Address [facility]/ZIP Co de Phone Number [facility] [address] [place] [address] * XR CHEST 2 VIEWS (06/15/2022 20:21 EDT) Anatomical Region Laterality Modality Computed Radiogr aphy 06/15/2022 20:2 9 EDT Impressions 06/15/2022 20:29 EDT 1. ??Subsegmental atelectasis and/or scarring in the left lung base. 2. ??Mild interstitial prominence in the lung bases, possibly representing pulmonary edema but improved compared to prior. Image quality reduced by patient's body habitus. Narrative 06/15/2022 20:29 EDT XR CHEST 2 VIEWS ??06/15/2022 8:05 PM CLINICAL HISTORY/COMMENTS: sob, chf COMPARISON: Chest radiographs 06/09/2022, 06/06/2022 and 04/26/2022.. TECHNIQUE: Frontal and lateral views of the chest were performed. FINDINGS: Soft tissues and extrathoracic findings: ??Embolization coils are present in the left upper quadrant, similar to prior CT scan. Bones: Normal for age. Cardiac and mediastinal contours: Normal. Lungs: Bandlike opacities in the left mid and lower lung likely represents subsegmental atelectasis. Mild interstitial prominence in the inferior lungs, slightly improved from prior. No lobar consolidation. ?? Pleura/diaphragms: Normal. Procedure Note Marcel Narayanan MD - 06/15/2022 XR CHEST 2 VIEWS 06/15/2022 8:05 PM CLINICAL HISTORY/COMMENTS: sob, chf COMPARISON: Chest radiographs 06/09/2022, 06/06/2022 and 04/26/2022.. TECHNIQUE: Frontal and lateral views of the chest were performed. FINDINGS: Soft tissues and extrathoracic findings: Embolization coils are presentin the left upper quadrant, similar to prior CT scan. Bones: Normal for age. Cardiac and mediastinal contours: Normal. Lungs: Bandlike opacities in the left mid and lower lung likely representssubsegmental atelectasis. Mild interstitial prominence in the inferiorlungs, slightly improved from prior. No lobar consolidation. Pleura/diaphragms: Normal. IMPRESSION 1. Subsegmental atelectasis and/or scarring in the left lung base. 2. Mild interstitial prominence in the lung bases, possibly representingpulmonary edema but improved compared to prior. Image quality reduced bypatient's body habitus. us Fausto Roberts MD IMG DIAGNOSTIC IMAGING ORDER YANN Final Result * NT PRO BNP (06/15/2022 19:15 EDT) NT-pro BNP 41 <125 pg/mL 06/15/2022 20:01 EDT [facility] Comment:The results of this assay can be falsely lowered due to consumption of Biotin. Blood VENOUS BLOOD / Unknown Venipuncture / Unknown 06/15/2022 19:15 EDT 06/15/2022 19:21 EDT Fausto Roberts MD CHEMISTRY & BLOOD GAS ORDERA BLES Final Result Performing Organization Address City/[facility]/ZIP Co de Phone Number [facility] [address] [place] [address] * HOLD BLUE TOP (06/15/2022 19:15 EDT) Hold Hold 06/15/2022 20:31 EDT [facility] Blood VENOUS BLOOD / Unknown Venipuncture / Unknown 06/15/2022 19:15 EDT 06/15/2022 19:20 EDT Result [facility] Fausto Roberts MD LAB INFO SERVICE AND SUPPORT & PHONE RESULT Final Result [facility] [address] [place] [address] * MAGNESIUM (06/15/2022 19:15 EDT) Magnesium 1.8 1.7 - 2.8 mg/dL 06/15/2022 19:39 EDT [facility] Blood VENOUS BLOOD / Unknown Venipuncture / Unknown 06/15/2022 19:15 EDT 06/15/2022 19:21 EDT Fausto Roberts MD CHEMISTRY & BLOOD GAS ORDERA BLES Final Result Performing Organization Address [facility] de Phone Number [facility] [address] [place] [address] * TROPONIN I (06/15/2022 19:15 EDT) [facility] Troponin I (ng/mL) <0.034 <0.034 ng/mL 06/15/2022 19:53 EDT [facility] Blood VENOUS BLOOD / Unknown Venipuncture / Unknown 06/15/2022 19:15 EDT 06/15/2022 19:21 EDT Narrative [facility] - 06/15/2022 19:53 EDT The results of this assay can be falsely lowered due to the consumption of Biotin. Fausto Roberts MD CHEMISTRY & BLOOD GAS ORDERA BLES Final Result Performing Organization Address [facility] de Phone Number [facility] [address] [place] [address] * (ABNORMAL) BASIC METABOLIC PANEL (BMP) (06/15/2022 19:15 EDT) [facility] Sodium 137 136 - 145 mmol/L 06/15/2022 19:39 [facility] Potassium 3.7 3.5 - 5.0 mmol/L 06/15/2022 19:39 [facility] Chloride 98 96 - 110 mmol/L 06/15/2022 19:39 [facility] CO2 Total 33(H) 22 - 32 mmol/L 06/15/2022 19:39 [facility] Anion Gap 6 5 - 14 06/15/2022 19:39 [facility] Glucose 86 70 - 100 mg/dL 06/15/2022 19:39 [facility] Calcium 8.5 8.5 - 10.5 mg/dL 06/15/2022 19:39 [facility] BUN 14 10 - 26 mg/dL 06/15/2022 19:39 [facility] Creatinine 1.08(H) 0.52 - 1.04 mg/dL 06/15/2022 19:39 [facility] eGFR 58(L) >60 mL/min/1.73 m2 06/15/2022 19:39 [facility] Blood VENOUS BLOOD / Unknown Venipuncture / Unknown 06/15/2022 19:15 EDT 06/15/2022 19:21 EDT us Fausto Roberts MD CHEMISTRY & BLOOD GAS ORDERA BLES Final Result [facility] [address] [place] [address] * (ABNORMAL) COMPLETE BLOOD COUNT AND DIFFERENTIAL (06/15/2022 19:15 EDT) WBC 4.09 4.00 - 12.40 K/cmm 06/15/2022 19:29 [facility] RBC 3.86 3.86 - 5.04 M/cmm 06/15/2022 19:29 [facility] Hemoglobin 10.9(L) 11.6 - 15.2 gm/dL 06/15/2022 19:29 [facility] HCT 33.4(L) 34.9 - 44.4 % 06/15/2022 19:29 [facility] MCV 87 81 - 98 fl 06/15/2022 19:29 [facility] MCH 28.2 26.7 - 33.3 pg 06/15/2022 19:29 [facility] MCHC 32.6 32.1 - 35.9 gm/dL 06/15/2022 19:29 [facility] RDW-CV 14.8(H) <14.7 % 06/15/2022 19:29 [facility] RDW-SD 46.5 <50.4 fl 06/15/2022 19:29 [facility] PLT 98(L) 141 - 377 K/cmm 06/15/2022 19:29 [facility] MPV 9.6 9.5 - 12.7 fl 06/15/2022 19:29 [facility] % Neutrophils 75.2 % 06/15/2022 19:29 [facility] % Lymphocytes 9.0 % 06/15/2022 19:29 [facility] % Monocytes 12.2 % 06/15/2022 19:29 [facility] % Eosinophils 2.9 % 06/15/2022 19:29 [facility] % Basophils 0.5 % 06/15/2022 19:29 [facility] % Immature Grans 0.2 % 06/15/20 19:29 [facility] SERVICES Absolute Neutrophils 3.07 2.20 - 8.85 K/cm 06/15/2022 19:29 [facility] Absolute Lymphocytes 0.37(L) 1.09 - 3.30 K/cm 06/15/2022 19:29 [facility] Absolute Monocytes 0.50 0.10 - 0.80 K/cm 06/15/2022 19:29 [facility] Absolute Eosinophils 0.12 0.03 - 0.61 K/cm 06/15/2022 19:29 [facility] ABS Basophils 0.02 0.01 - 0.11 K/cm 06/15/2022 19:29 [facility] Absolute Immature Grans 0.01 0.00 - 0.06 K/[facility] 06/15/2022 19:29 [facility] Type of Differential: Auto 06/15/2022 19:29 [facility] Blood VENOUS BLOOD / Unknown Venipuncture / Unknown 06/15/2022 19:15 EDT 06/15/2022 19:20 EDT us Fausto Roberts MD PACKAGES & DNA PROBE ORDERAB LES Final Result [facility] LABORAT[facility] SERVICES [address] [place] [id number] * EKG 12-LEAD (06/15/2022 17:27 EDT) 06/15/2022 17:2 7 EDT Narrative [facility] EKG - 06/17/2022 16:01 EDT ?[facility] Emergency ? Test Date: ?2022-06-15 Pat Name: ? PHYLISS BOOTHE ?Department: ?? ED ? Room: ? Gender: ? Female ? 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 Requested By: ELVIRA Leonardo Order Number: [id number] ? Jose MD: ?? LAURENT MACK MD PhD ? Measurements Intervals ?Thelma ? Rate: ? 82 ? P: ?52 MT: ? 157 ?QRS: ?59 QRSD: ? 104 ?T: ?38 QT: ? 384 ? QTc: ?449 ? Interpretive Statements SINUS RHYTHM Automated Interpretation. ??Provider Interpretation to follow. Compared to ECG 06/09/2022 19:35:56 No significant changes I reviewed the tracing and have either agreed or edited the findings in this report. Electronically Signed On 06-17-2022 16:01:13 EDT by LAURENT MACK MD PhD. 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 Provider Interpretation to follow. Compared to ECG 06/09/2022 19:35:56 No significant changes I reviewed the tracing and have either agreed or edited the findings inthis report. Electronically Signed On 06-17-2022 16:01:13 EDT by ERVIN PHIPPS PhD. us Maria Luisa Moreno MD CARDIAC ECG ORDERABLES Final Re sult [facility] EKG documented in this encounter Visit Diagnoses Diagnosis COPD exacerbation (HCC-CMS)- Primary Obstructive chronic bronchitis with exacerbation COPD exacerbation (HCC-CMS) Obstructive chronic bronchitis with exacerbation Acute on chronic congestive heart failure, unspecified heart failure type (HCC-CMS) Acute on chronic respiratory failure with hypoxia (HCC-CMS) Bilateral lower extremity edema Edema Acute respiratory failure with hypoxia (HCC-CMS) Acute respiratory failure Respiratory failure with hypoxia (HCC-CMS) Acute respiratory failure Acute on chronic congestive heart failure, unspecified heart failure type (HCC-CMS) documented in this encounter Admitting Diagnoses Diagnosis Respiratory failure with hypoxia (HCC-CMS) Acute respiratory failure documented in this encounter Administered Medications Inactive Administered Medications - up to 3 most recent administrations Medication Order MAR Action Action Date Dose Rate Site albuterol (ACCUNEB) nebulizer solution 2.5 mg 2.5 mg, nebulization, NOW X1, 1 dose, On Tue06/15/22 at 2145, STAT Given 06/15/2022 21:46 EDT 2.5 mg azithromycin (ZITHROMAX) tablet 500 mg 500 mg, oral, DAILY, 3 doses, First dose on Tue06/16/22 at 0030, Last dose on Tue06/17/22 at 2100, Routine Given 06/17/2022 20:43 EDT 500 mg Given 06/16/2022 20:49 EDT 500 mg Given 06/16/2022 1:12 EDT 500 mg budesonide-formoterol HFA (SYMBICORT) 160-4.5 mcg/actuation inhaler 2 Puff 2 Puff, inhalation, 2 TIMES DAILY, First dose (after last reorder) on Tue06/16/22 at 0900, Until Discontinued, Routine Given 06/18/2022 8:37 EDT 2 Puffs Given 06/17/2022 20:46 EDT 2 Puffs Given 06/17/2022 8:01 EDT 2 Puffs furosemide (LASIX) injection 40 mg 40 mg, intravenous, NOW X1, 1 dose, On Tue06/16/22 at 1030, Routine Given 06/16/2022 11:30 EDT 40 mg furosemide (LASIX) injection 60 mg 60 mg, intravenous, NOW X1, 1 dose, On Tue06/17/22 at 1100, Routine Given 06/17/2022 10:55 EDT 60 mg furosemide (LASIX) injection 60 mg 60 mg, intravenous, NOW X1, 1 dose, On Tue06/17/22 at 1500, Routine Given 06/17/2022 15:04 EDT 60 mg furosemide (LASIX) injection 60 mg 60 mg, intravenous, NOW X1, 1 dose, On Tue06/18/22 at 1030, Routine Given 06/18/2022 10:34 EDT 60 mg furosemide (LASIX) injection 80 mg 80 mg, intravenous, NOW X1, 1 dose, On Tue06/15/22 at 1945, STAT Given 06/15/2022 20:02 EDT 80 mg ipratropium-albuteroL (DUONEB) 0.5 mg-3 mg(2.5 mg base)/3 mL nebulizer solution 3 mL 3 mL, nebulization, NOW X1, 1 dose, On Tue06/15/22 at 1945, STAT Given 06/15/2022 20:41 EDT 3 mL ipratropium-albuteroL (DUONEB) 0.5 mg-3 mg(2.5 mg base)/3 mL nebulizer solution 3 mL 3 mL, nebulization, EVERY 4 HOURS, First dose (after last reorder) on Tue06/16/22 at 0015, Until Discontinued, STAT Given 06/16/2022 1:15 EDT 3 mL ipratropium-albuteroL (DUONEB) 0.5 mg-3 mg(2.5 mg base)/3 mL nebulizer solution 3 mL 3 mL, nebulization, EVERY 4 HOURS PRN, Starting on Tue06/16/22 at 0215, Until Tue06/18/22 at 1732, Wheezing, STAT ipratropium-albuteroL (DUONEB) 0.5 mg-3 mg(2.5 mg base)/3 mL nebulizer solution 3 mL 3 mL, nebulization, EVERY 6 HOURS, First dose on Tue06/16/22 at 0630, Until Discontinued, Routine Given 06/16/2022 18:14 EDT 3 mL Given 06/16/2022 12:12 EDT 3 mL Given 06/16/2022 8:35 EDT 3 mL ipratropium-albuteroL (DUONEB) 0.5 mg-3 mg(2.5 mg base)/3 mL nebulizer solution 3 mL 3 mL, nebulization, 4 TIMES DAILY, First dose (after last modification) on Tue06/17/22 at 0800, Until Discontinued, Routine Given 06/18/2022 12:33 EDT 3 mL Given 06/18/2022 9:03 EDT 3 mL Given 06/17/2022 21:59 EDT 3 mL levothyroxine (SYNTHROID) tablet 25 mcg 25 mcg, oral, DAILY BEFORE BREAKFAST, First dose on Tue06/16/22 at 0700, Until Discontinued, Routine Given 06/18/2022 6:51 EDT 25 mcg Given 06/17/2022 8:19 EDT 25 mcg Given 06/16/2022 6:08 EDT 25 mcg LORazepam (ATIVAN) 2 mg/mL injection 1 dose, Starting on Tue06/17/22 at 0153, Until Tue06/18/22 at 1732 LORazepam (ATIVAN) 2 mg/mL injection 1 dose, Starting on Tue06/17/22 at 0233, Until Tue06/18/22 at 1732 ondansetron (PF) (ZOFRAN) injection 4 mg 4 mg, intravenous, NOW X1, 1 dose, On Tue06/15/22 at 1945, STAT Given 06/15/2022 20:00 EDT 4 mg oxyCODONE (ROXICODONE) immediate release tablet 5 mg 5 mg, oral, NOW X1, 1 dose, On Tue06/15/22 at 1945, STAT Given 06/15/2022 19:59 EDT 5 mg oxyCODONE (ROXICODONE) immediate release tablet 5 mg 5 mg, oral, EVERY 8 HOURS PRN, Starting on Tue06/16/22 at 0024, Until Tue06/16/22 at 1635, Pain, Routine Given 06/16/2022 9:27 EDT 5 mg Given 06/16/2022 1:12 EDT 5 mg oxyCODONE (ROXICODONE) immediate release tablet 5 mg 5 mg, oral, 3 TIMES DAILY PRN, Starting on Tue06/16/22 at 1645, Until Tue06/18/22 at 1732, Pain, Routine Given 06/18/2022 14:52 EDT 5 mg Given 06/18/2022 13:09 EDT 5 mg Given 06/18/2022 8:35 EDT 5 mg pantoprazole (PROTONIX) tablet 40 mg 40 mg, oral, 2 TIMES DAILY, First dose on Tue06/16/22 at 0045, Until Discontinued, Routine Given 06/18/2022 8:35 EDT 40 mg Given 06/17/2022 20:44 EDT 40 mg Given 06/17/2022 8:19 EDT 40 mg predniSONE (DELTASONE) tablet 40 mg 40 mg, oral, DAILY, 5 doses, First dose (after last modification) on Tue06/16/22 at 0900, Last dose on Tue06/20/22 at 0900, STAT Given 06/18/2022 8:35 EDT 40 mg Given 06/17/2022 8:19 EDT 40 mg Given 06/16/2022 9:18 EDT 40 mg predniSONE (DELTASONE) tablet 60 mg 60 mg, oral, NOW X1, 1 dose, On Tue06/15/22 at 2145, STAT Given 06/15/2022 21:46 EDT 60 mg senna (SENOKOT) tablet 2 Tablet 2 Tablet, oral, AT BEDTIME, First dose on Tue06/15/22 at 2345, Until Discontinued, Routine Given 06/17/2022 20:44 EDT 2 Tablets Given 06/16/2022 1:12 EDT 2 Tablets spironolactone (ALDACTONE) tablet 50 mg 50 mg, oral, DAILY, First dose on Tue06/16/22 at 0900, Until Discontinued, Routine Given 06/18/2022 8:35 EDT 50 mg Given 06/17/2022 8:19 EDT 50 mg Given 06/16/2022 9:18 EDT 50 mg sucralfate (CARAFATE) tablet 1 g 1 g, oral, 4 TIMES DAILY, First dose on Tue06/16/22 at 0800, Until Discontinued, Routine Given 06/18/2022 13:09 EDT 1 g Given 06/18/2022 8:35 EDT 1 g Given 06/17/2022 20:43 EDT 1 g traZODone (DESYREL) tablet 200 mg 200 mg, oral, AT BEDTIME, First dose on Tue06/16/22 at 0130, Until Discontinued, Routine Given 06/17/2022 23:19 EDT 2 00 mg Given 06/16/2022 20:48 EDT 200 mg Given 06/16/2022 1:24 EDT 200 mg documented in this encounter Discontinued Medications Medication Sig Discontinue Reason Start Date End Da te furosemide (LASIX) 20 mg tabletIndications:Bilat eral lower extremity edema Take 1 tablet by mouth 4 days per week (Tuesday, Tuesday, Tuesday, ), and 2 tablets by mouth 3 days per week (Tuesday, Tuesday, Tuesday). Reorder 05/20/2022 06/18/2022 sertraline (ZOLOFT) 100 mg tablet Take 1 Tablet by mouth daily. 02/17/2022 06/18/2022 SYMBICORT 160-4.5 mcg/actuation HFA aerosol inhaler inhalerIndications:COPD with asthma ([facility]) INHALE 2 PUFFS DIRECTED DAILY Alternate therapy 04/14/2022 06/18/2022 sertraline (ZOLOFT) 50 mg tablet TAKE 1 TABLET BY MOUTH EVERY DAY 05/17/2022 06/18/2022 documented as of this encounter Historical Medications * This list may reflect changes made after this encounter. sertraline (ZOLOFT) 50 mg tablet Take 50 mg by mouth daily. 10/04/2022 added in this encounter Active and Recently Administered Medications Times are shown in EDT. Scheduled Medication Order 06/16/2022 06/17/2022 06/18/2022 azithromycin (ZITHROMAX) tablet 500 mg (COMPLETED) 500 mg, oral, DAILY, 3 doses, First dose on Tue06/16/22 at 0030, Last dose on Tue06/17/22 at 2100, Routine 0112 (Given - Provider: Nuria Mathis RN)2048 (Given - Provider: Benito Cho RN) 2042 (Given - Provider: Flores Macias RN) budesonide-formoterol HFA (SYMBICORT) 160-4.5 mcg/actuation inhaler 2 Puff 2 Puff, inhalation, 2 TIMES DAILY, First dose (after last reorder) on Tue06/16/22 at 0900, Until Discontinued, Routine 0836 (Given - Provider: Bailey Lott, RT)2047 (Given - Provider: Benito Cho, KENN) 08 (Given - Provider: Daniel Garcia, RT)204 (Given - Provider: Flores Macias, KENN) 0837 (Given - Provider: Alma Wyatt RN) furosemide (LASIX) injection 40 mg (COMPLETED) 40 mg, intravenous, NOW X1, 1 dose, On Tue06/16/22 at 1030, Routine 1130 (Given - Provider: Adi Molina, KENN) furosemide (LASIX) injection 60 mg (COMPLETED) 60 mg, intravenous, NOW X1, 1 dose, On Tue06/17/22 at 1100, Routine 1055 (Given - Provider: Kenisha Mcgarry RN) furosemide (LASIX) injection 60 mg (COMPLETED) 60 mg, intravenous, NOW X1, 1 dose, On Tue06/17/22 at 1500, Routine 1504 (Given - Provider: Kenisha Mcgarry RN) furosemide (LASIX) injection 60 mg (COMPLETED) 60 mg, intravenous, NOW X1, 1 dose, On Tue06/18/22 at 1030, Routine 1034 (Given - Provid er: Alma Wyatt RN) ipratropium-albuteroL (DUONEB) 0.5 mg-3 mg(2.5 mg base)/3 mL nebulizer solution 3 mL (CANCELED) 3 mL, nebulization, EVERY 4 HOURS, First dose (after last reorder) on Tue06/16/22 at 0015, Until Discontinued, STAT 0115 (Given - Provider: Jayden Garcia, RT) ipratropium-albuteroL (DUONEB) 0.5 mg-3 mg(2.5 mg base)/3 mL nebulizer solution 3 mL (CANCELED) 3 mL, nebulization, EVERY 6 HOURS, First dose on Tue06/16/22 at 0630, Until Discontinued, Routine 0835 (Given - Provider: Bailey Lott RT)1212 (Given - Provider: Bailey Lott, RT)1814 (Given - Provider: Bailee Izquierdo) ipratropium-albuteroL (DUONEB) 0.5 mg-3 mg(2.5 mg base)/3 mL nebulizer solution 3 mL 3 mL, nebulization, 4 TIMES DAILY, First dose (after last modification) on Tue06/17/22 at 0800, Until Discontinued, Routine 0745 (Given - Provider: Daniel Garcia, RT)1213 (Given - Provider: Kathleen East, RT)1640 (Given - Provider: Dilan Novak, RT)2159 (Given - Provider: Darshan Lin, RT) 0903 (Given - Provider: Marsha Monson, RT)1233 (Given - Provider: Marsha Monson, RT)1700 (Canceled Entry - Provider: Batch Job User Admin - Comment: Automatically canceled at discontinue of medication order) levothyroxine (SYNTHROID) tablet 25 mcg 25 mcg, oral, DAILY BEFORE BREAKFAST, First dose on Tue06/16/22 at 0700, Until Discontinued, Routine 0608 (Given - Provider: Nuria Mathis RN) 0819 (Given - Provider: Kenisha Mcgarry RN) 0651 (Given - Provider: Sindhu Arroyo RN) pantoprazole (PROTONIX) tablet 40 mg 40 mg, oral, 2 TIMES DAILY, First dose on Tue06/16/22 at 0045, Until Discontinued, Routine 0112 (Given - Provider: Nuria Mathis RN)0918 (Given - Provider: Adi Molina, KENN)2048 (Given - Provider: Benito Cho, KENN) 0819 (Given - Provider: Kenisha Mcgarry, KENN)204 (Given - Provider: Flores Macias RN) 0835 (Given - Provider: Alma Wyatt, RN) predniSONE (DELTASONE) tablet 40 mg 40 mg, oral, DAILY, 5 doses, First dose (after last modification) on Tue06/16/22 at 0900, Last dose on Tue06/20/22 at 0900, STAT 0918 (Given - Provider: Adi Molina RN) 0819 (Given - Provider: Kenisha Mcgarry RN) 0835 (Given - Provider: Alma Wyatt, KENN) senna (SENOKOT) tablet 2 Tablet 2 Tablet, oral, AT BEDTIME, First dose on Tue06/15/22 at 2345, Until Discontinued, Routine 0112 (Given - Provider: Nuria Mathis RN)205 (Not Given - Provider: Benito Cho, KENN - Reason: Patient/family refused) 2043 (Given - Provider: Flores Macias RN) spironolactone (ALDACTONE) tablet 50 mg 50 mg, oral, DAILY, First dose on Tue06/16/22 at 0900, Until Discontinued, Routine 0918 (Given - Provider: Adi Molina RN) 0819 (Given - Provider: Kenisha Mcgarry RN) 0835 (Given - Provider: Alma Wyatt, KENN) sucralfate (CARAFATE) tablet 1 g 1 g, oral, 4 TIMES DAILY, First dose on Tue06/16/22 at 0800, Until Discontinued, Routine 0836 (Given - Provider: Adi Molina RN)1137 (Given - Provider: Adi Molina RN)1649 (Given - Provider: Kristal Redding RN)2048 (Given - Provider: Benito Cho RN) 0819 (Given - Provider: Kenisha Mcgarry RN)1152 (Given - Provider: Kenisha Mcgarry RN)1757 (Given - Provider: Kenisha Mcgarry RN)2043 (Given - Provider: Flores Macias RN) 0835 (Given - Provider: Alma Wyatt, KENN)1309 (Given - Provider: Alma Wyatt RN)1700 (Canceled Entry - Provider: Batch Job User Admin - Comment: Automatically canceled at discontinue of medication order) traZODone (DESYREL) tablet 200 mg 200 mg, oral, AT BEDTIME, First dose on Tue06/16/22 at 0130, Until Discontinued, Routine 0124 (Given - Provider: Dom Heredia RN)204 (Given - Provider: Benito Cho, EKNN) 231 (Given - Provider: Sindhu Arroyo RN - Comment: received pt at 10:40 pm) PRN Medication Order 06/16/2022 06/17/2022 06/18/2022 ipratropium-albuteroL (DUONEB) 0.5 mg-3 mg(2.5 mg base)/3 mL nebulizer solution 3 mL 3 mL, nebulization, EVERY 4 HOURS PRN, Starting on Tue06/16/22 at 0215, Until Tue06/18/22 at 1732, Wheezing, STAT lidocaine (PF) 10 mg/mL (1 %) injection 2 mg 2 mg, intradermal, PRN, 4 doses, Starting on Tue06/15/22 at 2332, Until Tue06/18/22 at 1732, peripheral intravenous catheter placement, Routine olopatadine (PATANOL) 0.1 % ophthalmic solution 1 Drop 1 Drop, both eyes, DAILY PRN, Starting on Tue06/16/22 at 0024, Until Tue06/18/22 at 1732, Allergies oxyCODONE (ROXICODONE) immediate release tablet 5 mg (CANCELED) 5 mg, oral, EVERY 8 HOURS PRN, Starting on Tue06/16/22 at 0024, Until Tue06/16/22 at 1635, Pain, Routine 0112 (Given - Provider: Nuria Mathis RN)0927 (Given - Provider: Adi Molina RN) oxyCODONE (ROXICODONE) immediate release tablet 5 mg 5 mg, oral, 3 TIMES DAILY PRN, Starting on Tue06/16/22 at 1645, Until Tue06/18/22 at 1732, Pain, Routine 1648 (Given - Provider: Kristal Redding RN)2057 (Given - Provider: Benito Cho RN) 0819 (Given - Provider: Kenisha Mcgarry, KENN)1415 (Given - Provider: Kenisha Mcgarry RN)2044 (Given - Provider: Flores Macias RN) 0835 (Given - Provider: Alma Wyatt, KENN)1309 (Given - Provider: Alma Wyatt, KENN)1452 (Given - Provider: Alma Wyatt, KENN) polyethylene glycol 3350 (MIRALAX) packet 17 g 17 g, oral, DAILY PRN, Starting on Tue06/15/22 at 2332, Until Tue06/18/22 at 1732, Constipation, Routine No Frequency Medication Order 06/16/2022 06/17/2022 06/18/2022 LORazepam (ATIVAN) 2 mg/mL injection 1 dose, Starting on Tue06/17/22 at 0153, Until Tue06/18/22 at 1732 LORazepam (ATIVAN) 2 mg/mL injection 1 dose, Starting on Kirsten 06/17/22 at 0233, Until Tue06/18/22 at 1732 documented in this encounter Orders Medications Ordered That Luc ht Not Have Been Administered Count Last Ordered Date First Ordered Date LORazepam (ATIVAN) 2 mg/mL injection 2 05/22 budesonide-formoterol HFA (S YMBICORT) 160-4.5 mcg/actuation inhaler 2 Puff 1 06/16/2022 enoxaparin (LOVENOX) injection 40 mg 2 05/2206/15/2022 furosemide (LASIX) injection 80 mg 1 2021 ipratropium-albuteroL (DUONE B) 0.5 mg-3 mg(2.5 mg base)/3 mL nebulizer solution 3 mL 1 06/16/2022 olopatadine (PATANOL) 0.1 % ophthalmic solution 1 Drop 1 06/16/2022 predniSONE (DELTASONE) tablet 60 mg 1 06/16 tiotropium (SPIRIVA) 18 mcg inhalation capsule 18 mcg 1 06/16/2022 lidocaine (PF) 10 mg/mL (1 % ) injection 2 mg 1 06/15/2022 polyethylene glycol 3350 (TN RALAX) packet 17 g 1 06/15/2022 Lab Orders Without Results Count Last Ordered D ate First Ordered Date BASIC METABOLIC PANEL (BMP) 1 06/18/2022 Diet Count Last Ordered Date First Orde red Date DISCHARGE DIET 1 06/18/2022 Nursing Count Last Ordered Date First Orde red Date ACTIVITY INSTRUCTIONS 1 06/18/2022 BATHING INSTRUCTIONS 1 06/18/2022 FLUID RESTRICTION 1 06/18/2022 PT Count Last Ordered Date First Orde red Date PT EVALUATION AND TREAT 1 06/15/2022 Respiratory Care Count Last Ordered Date First Ordered Date DRY POWDERED OR METERED DOSE INHALER 4 05/2206/16/2022 NEBULIZER TX INTERMITTENT 8 06/17/2022 Admission Count Last Ordered Date First Orde red Date ADMIT TO INPATIENT 1 06/16/2022 OUTPATIENT WITH OBSERVATION SERVICES (INITIATE OBSERVATION STATUS) 1 06/16/2022 Transfer Count Last Ordered Date First Orde red Date ED BED REQUEST 1 06/15/2022 Discharge Count Last Ordered Date First Orde red Date DISCHARGE PATIENT 1 06/18/2022 Legal Count Last Ordered Date First Orde red Date MISCELLANEOUS DISCHARGE INSTRUCTIONS 05/22 documented in this encounter Care Teams Framing Machine Tender Relationship Specialty Start Date End Date Emigdio Veronica MD [address] [place] [phone] PCP - General Internal Medicine - Primary Care 05/22/20 02/21/24 documented as of this encounter
--- OUTSIDE RECORDS SUMMARY | 2024-11-22 17:03 | XMS_ITS | Encounter Summary ---
Author Organization [facility] Address [address] [place] [address] Care Team Providers Care Branding Specialist Name Role Phone Emigdio Veronica MD Primary Care Provider + Reason for Visit * Auth/Cert Specialty Diagnoses / Procedures Referred By Serene huitron Referred To Contact Diagnoses COPD exacerbation ([facility]) Respiratory failure with hypoxia ([facility]) Acute on chronic congestive heart failure, unspecified heart failure type ([facility]) Referral ID Status Reason Start Date Expiration Date Visits Re quested Visits Authorized [id number] 1 1 Encounter Details Date Type Department Care Team (Late st Contact Info) Description 06/16/2022 11:20 EDT Ancillary Procedure Vascular Surgery and Endovascular Therapy - [address] [id number] Social History Tobacco Use Types Packs/Day Years [...] Industry 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 Not on file Not [...] Info) Description 01/04/2025 13:00 EST Office Visit [facility] Ophthalmology - [address] [id number] Gagandeep Rome MD [address] [place] [address], [facility] [address] [place] [phone] 02/11/2025 13:30 EDT Telemedicine [facility] Hematology & Oncology [address] [phone] Dana Padilla MD [address] [place] [address], [facility] [address] [place] [phone] documented as of this encounter Procedures Procedure Name Priority Date/Time Associated Diagnosis Comments US LOWER VENOUS DUPLEX (DVT) BILATERAL Routine 06/16/2022 13:05 EDT documented in this encounter Results * US LOWER VENOUS DUPLEX (DVT) BILATERAL [...] Former tobacco use, Obesity and Prior PE. us Cris Chauhan MD IMG VASCULAR ORDERABLES Final Result documented in this encounter Visit Diagnoses Not on filedocumented in this encounter Care Teams Branding Specialist Relationship Specialty Start Date End Date Emigdio Veronica MD [address] [place] [phone] PCP - General Internal Medicine - Primary Care 05/22/20 02/21/24 documented as of this encounter
--- OUTSIDE RECORDS SUMMARY | 2024-11-22 17:03 | XMS_ITS | Encounter Summary ---
Author Organization [facility] Address [address] [place] [address] Care Team Providers Care Parts Salesman Name Role Phone Emigdio Veronica MD Primary Care Provider + Starr Paige MD Unavailable [phone] Dana Padilla MD Unavailable Reason for Visit * Reason Comments Post-ED Follow Up SOB on 05/07/22, susannah mccord SOB Encounter Details Date Type Department Care Team (Late st Contact Info) Description 05/20/2022 11:00 EDT Office Visit [facility] Adult Primary Care - [address] [id number] Nguyen Nolasco, CLASSER [address] [facility], 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 No / Unsure 05/07/2022 14:41 EDT documented as of this encounter Last Filed Vital Signs Vital Sign Reading Time Taken Comments Blood Pressure 102/60 05/20/2022 1042 EDT Pulse 80 05/20/2022 1042 EDT Temperature 36.2 ??C (97.1 ??F) 05/20/2022 1042 EDT Respiratory Rate 16 05/20/2022 1042 EDT Oxygen Saturation 98% 05/20/2022 1042 EDT Inhaled Oxygen Concentration - - Weight 109.8 kg (242 lb) 05/20/2022 1042 EDT Height - - Body Mass Index 41.54 05/07/2022 1440 EDT documented in this encounter Functional Status [...] Date of Assessment Author No 05/08/2022 1:00 DAVIDT Re Kamara RN * Because of a [...] Re Smart RN documented in this encounter Ordered Prescriptions Prescription Sig Dispense Quantity Refills Last Filled Start Date End Date furosemide (LASIX) 20 mg tabletIndications:Bi lateral lower extremity edema Take 1 tablet by mouth 4 days per week (Tuesday, Tuesday, Tuesday, ), and 2 tablets by mouth 3 days per week (Tuesday, Tuesday, Tuesday). 120 Tablet 05/20/2022 2 tiotropium (SPIRIVA) 18 mcg inhalation capsuleIndications:C hronic obstructive pulmonary disease, unspecified COPD type ([facility]) Inhale 1 capsule as directed daily. 30 capsule 2 05/20/2022 2 olopatadine (PATADAY) 0.2 % ophthalmic solutionIndications: Allergic conjunctivitis and rhinitis, unspecified laterality Place 1 Drop into both eyes daily as needed for Allergies. 5 mL 2 05/20/2022 2 levothyroxine (SYNTHROID) 25 mcg tablet Take 1 Tablet by mouth daily before breakfast. 90 Tablet 1 05/20/2022 2 documented in this encounter Progress Notes * Nguyen Nolasco, CLASSER - 05/20/2022 1100 EDT Subjective: Patient ID: Tara Yun is an 61 y.o. female. Chief Complaint Patient presents with ??? Post-ED Follow Up SOB on 05/07/22, still SOB HPI Transitions of Care Follow-Up Patient was discharged from: [facility] Date of discharge: 05/11/22 Reason for hospitalization: SOB, BLE Documentation of call/MyHealth encounter within 48 business hours of discharge or documentation of two failed attempts if unable to reach patient: Yes Date of interactive contact and/or dates of two failed attempts to contact patient: 05/12/22 I have obtained and reviewed the Discharge Summary: Yes Medication reconciliation (changes and associated risks): - lasix increased to 40mg every day I am managing this patient who is requiring moderate medical decision making as described in my Transitional Care Management [id number] visit note. PMH notable for NAFLD (with portal vein thrombosis, splenic vein thrombosis with infarct, superior mesenteric vein thrombosis and small esophageal varices), HFpEF, COPD, GIB secondary to duodenal ulcer, hypothyroidism, CKD, HUEY, GERD, chronic hypoxic respiratory failure on nocturnal O2, and anxiety. Admitted for IV diuresis and workup of volume overload. Echo done 05/10/22 with EF >65%. Etiology of hypervolemia and dyspnea was unclear - no suspicion of COPD exacebation, HF exacerbation, decompensated cirrhosis. Negative venous duplex. US liver/abdomen visceral doppler without new findings. Today reports her breathing feels about the same as it did when she was discharged from the hospital. Endorses occasional shortness of breath at rest. Typically, shortness of breath presents if she is going for a walk, she will need to stop and rest. Reports at home she wears compression stockings and checks her weights. Reports weights at home have been between 250 and 253 pounds. Weight in office is 242 pounds. She has been taking Lasix 40 mg daily. Reports she has been staying hydrated, but always feels thirsty. Denies chest pain, palpitations, dizziness. Does sleep on multiple pillows. Currently working with the sleep center. History of sleep apnea andpreviously was on CPAP, but stopped using this. Does have significant difficulty with sleep. Takes trazodone at night. Having bowel movements once daily or once every other day. Has MiraLAX which she can use as needed. Saw pulmonology in 2019 with plan to get PFTs, but lost to follow-up. Has upcoming appointment withpulmonology. Per last note, recommended starting Spiriva in addition to Symbicort which she is taking twice daily. Patient Active Problem List Diagnosis ??? Pancytopenia [...] (HCC) ??? Shortness of breath ??? Hypoxemia Outpatient Medications Marked as Taking for the 05/20/22 encounter (Office Visit) with Nguyen Nolasco NP Medication Sig Dispense Refill ??? albuterol 90 [...] (Tuesday, Tuesday, Tuesday). 120 Tablet 0 ??? [DISCONTINUED] furosemide (LASIX) 20 mg tablet Take 2 Tablets by mouth daily. 90 Tablet 1 ??? levothyroxine (SYNTHROID) 25 mcg tablet Take 1 Tablet by mouth daily before breakfast. 90 Tablet 1 ??? [DISCONTINUED] levothyroxine (SYNTHROID) 25 mcg tablet Take 1 [...] bedtime. ??? pantoprazole (PROTONIX) 40 mg tablet TAKE 1 TABLET BY MOUTH TWICE A DAY 30 Tablet 3 ??? sertraline (ZOLOFT) 100 mg tablet Take 1 Tablet by mouth daily. 1 Tablet 0 ??? spironolactone (ALDACTONE) 50 mg tablet Take [...] 0 ROS - See HPI Objective: BP 102/60 (BP Cuff Location: Right arm, BP Patient Position: Sitting, BP Cuff Sizes: Adult, large) Pulse 80 Temp 36.2 ??C (97.1 ??F) (Tympanic) Resp 16 Wt (!) 109.8 kg (242 lb) SpO2 98% BMI 41.54 kg/m?? Physical Exam Vitals and nursing note reviewed. Constitutional: General: She is not in acute distress. Appearance: She is well-developed and well-nourished. Eyes: Extraocular Movements: EOM normal. Conjunctiva/sclera: Conjunctivae normal. Cardiovascular: Rate and Rhythm: Normal rate and regular rhythm. Heart sounds: Normal heart sounds. No murmur heard. Comments: +1 pitting edema bilaterally Pulmonary: Effort: Pulmonary effort is normal. No respiratory distress. Breath sounds: Normal breath sounds. Abdominal: General: Bowel sounds are normal. Palpations: Abdomen is soft. Tenderness: There is abdominal tenderness (slight generalized tenderness). Skin: General: Skin is warm and dry. Neurological: Mental Status: She is alert and oriented to person, place, and time. Psychiatric: Mood and Affect: Mood and affect normal. Behavior: Behavior normal. Thought Content: Thought content normal. Assessment / Plan: Tara was seen today for post-ed follow up. Diagnoses and all orders for this visit: Chronic obstructive pulmonary disease, unspecified COPD type (HCC-CMS) ([facility]) - Discontinue: tiotropium (SPIRIVA) 18 mcg inhalation capsule; Inhale 1 capsule as directed daily. With asthma and presumed COPD given smoking hx. Patient has not yet had PFTs unfortunately, has upcoming visit with pulmonology. Will trial treatment with Spiriva per their recommendations in 2019. Encouraged continued compliance with Symbicort. Follow-up as scheduled with pulmonology in late May. HUEY (obstructive sleep apnea) Patient endorsing fatigue, likely poor sleep related to HUEY. She is currently undergoing work-up for this and has upcoming polysomnogram. Bilateral lower extremity edema - BASIC METABOLIC PANEL (BMP); Future - furosemide (LASIX) 20 mg tablet; Take 1 tablet by mouth 4 days per week (Tuesday, Tuesday, Tuesday, ), and 2 tablets by mouth 3 days per week (Tuesday, Tuesday, Tuesday). With bilateral lower extremity edema, per patient significantly improved from prior to hospitalization. Is somewhat challenging to assess her weight but it does appear that she is largely euvolemic on exam today. There is mild pitting edema, although it is challenging to ensure adequate diuresis while also maintaining kidney function. Her GFR has decreased from when she was hospitalized. Will decrease Lasix to 20 mg 4 days/week, 40 mg 3 days/week. Discussed obtaining BMP in 2 weeks and patient is aware. She has follow-up with Dr. Veronica in 1 month. Allergic conjunctivitis and rhinitis, unspecified laterality - olopatadine (PATADAY) 0.2 % ophthalmic solution; Place 1 Drop into both eyes daily as needed for Allergies. Requests refill. Need for COVID-19 vaccine - COVID-19 MRNA,MAGDY READY TO USE VACCINE (PFIZER READY TO USE COVID-19) PF 0.3 ML IM (12 YRS+) Other orders - levothyroxine (SYNTHROID) 25 mcg tablet; Take 1 Tablet by mouth daily before breakfast. Requests refill. Plan discussed with patient PCP, Dr. Veronica given patient's complex medical history. I spent a total of 35 minutes on the date of this encounter meeting with the patient and reviewing documentation/coordinating care as described in the above note. Nguyen Nolasco NP 05/20/2022 17:49 documented in this encounter Plan of Treatment Upcoming Encounters Date Type Department Care Team (Late st Contact Info) Description 01/04/2025 13:00 EST Office Visit [facility] Ophthalmology - [address] [phone] Gagandeep Rome MD [address] [place] [address], [facility] [address] [place] [address] 02/11/2025 13:30 EDT Telemedicine [facility] Hematology & Oncology [address] [phone] Dana Padilla MD [address] [place] [address], [facility] [address] [place] [address] documented as of this encounter Results * (ABNORMAL) BASIC METABOLIC PANEL (BMP) (06/25/2022 8:12 EDT) Sodium 140 136 - 145 mmol/L 06/25/2022 10:07 [facility] Potassium 4.1 3.5 - 5.0 mmol/L 06/25/2022 10:07 [facility] Chloride 98 96 - 110 mmol/L 06/25/2022 10:07 [facility] CO2 Total 31 22 - 32 mmol/L 06/25/2022 10:07 [facility] Anion Gap 11 5 - 14 06/25/2022 10:07 [facility] Glucose 96 70 - 100 mg/dL 06/25/2022 10:07 [facility] Calcium 8.2(L) 8.5 - 10.5 mg/dL 06/25/2022 10:07 [facility] BUN 13 10 - 26 mg/dL 06/25/2022 10:07 [facility] Creatinine 1.06(H) 0.52 - 1.04 mg/dL 06/25/2022 10:07 [facility] eGFR 60(L) >60 mL/min/1.73 m2 06/25/2022 10:07 [facility] Blood VENOUS BLOOD / Unknown Venipuncture / Unknown 06/25/2022 8:12 EDT 06/25/2022 8:12 EDT us Nguyen Nolasco NP CHEMISTRY & BLOOD GAS ORDERAB LES Final Result [facility] [address] [place] [address] documented in this encounter Visit Diagnoses Diagnosis Chronic obstructive pulmonary disease, unspecified COPD type ([facility])- Primary HUEY (obstructive sleep apnea) Obstructive sleep apnea (adult) (pediatric) Bilateral lower extremity edema Edema Allergic conjunctivitis and rhinitis, unspecified laterality Need for COVID-19 vaccine documented in this encounter Discontinued Medications Medication Sig Discontinue Reason Start Date End Da te mupirocin (BACTROBAN) 2 % ointment Apply 3 times a day for 1 week for painful sore on lower right leg. Therapy completed 09/18/2021 05/20/2022 levothyroxine (SYNTHROID) 25 mcg tablet Take 1 Tablet by mouth daily before breakfast. Reorder 11/11/2021 05/20/2022 furosemide (LASIX) 20 mg tablet Take 2 Tablets by mouth daily. Reorder 05/11/2022 05/20/2022 documented as of this encounter Orders Immunization/Injection Count Last Ordered Date First Ordered Date COVID-19 MRNA,MAGDY READY TO USE VACCINE (PFIZER READY TO USE COVID-19) PF 0.3 ML IM (12 YRS+) 1 05/20/2022 documented in this encounter Care Teams Parts Salesman Relationship Specialty Start Date End Date Emigdio Veronica MD [address] [place] [phone] PCP - General Internal Medicine - Primary Care 05/22/20 02/21/24 Starr Paige MD [address] [place] [phone] Hematology 10/08/21 06/09/22 Dana Padilla MD [address] [place] [address], [facility] [address] [place] [address] Hematology 01/13/22 06/09/22 documented as of this encounter
--- OUTSIDE RECORDS SUMMARY | 2024-11-22 17:03 | XMS_ITS | Encounter Summary ---
Author Organization [facility] Address [address] [place] [address] Care Team Providers Care Hip Hop Artist Name Role Phone Emigdio Veronica MD Primary Care Provider + Starr Paige MD Unavailable [phone] Dana Padilla MD Unavailable Reason for Visit * Reason Comments Shortness of Breath Pt reports increasin g peripheral edema and shortness of breath for the past week and today became significantly worse. Pt A/Ox4, VSS on 15L NRB upon EMS arrival. +3 edema appreciated in BLE. [facility] with [facility] relief. Encounter Details Date Type Department Care Team (Late st Contact Info) Description 06/09/2022 19:14 EDT - 06/09/2022 23:40 EDT Emergency 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 You were assessed today for shortness of breath. We performed a chest x-ray that looked like you had significant pulmonary edema. We recommend that you increase your home Lasix from 40-60 daily and follow-up outpatient with your primary care physician. Return to the Emergency Department (ED) if [...] HFA aerosol inhaler inhalerIndications:C OPD with asthma ([facility]) INHALE 2 PUFFS DIRECTED DAILY 10.2 Each 1 04/14/2022 2 traZODone (DESYREL) 100 mg tablet Take 2 Tablets by mouth at bedtime. 180 Tablet 05/04/2022 2 umeclidinium (INCRUSE ELLIPTA) 62.5 mcg/actuationIndicat ions:Chronic obstructive pulmonary disease, unspecified COPD type ([facility]) Inhale 1 Puff as directed daily. 1 Each 05/20/2022 2 documented as of this encounter Discharge Disposition Disposition Code Departure Means Destination Home or Self [facility] documented in this encounter Progress Notes * Elvin Lin, RT - 06/09/2022 2004 EDT Respiratory Consult/Progress Note Indications for Respiratory therapy: Initial Consult, COPD, HUEY Data Vitals: Heart Rate: 81 BPM, Resp: 14, SpO2: 97 % FIO2/O2 Device: O2 Flow Rate (L/min): 4 l/min, , O2 Device: (S) Nasal cannula, FIO2 %: 30 % RT Orders: Continuous CPAP Protocol Scoring: Bronchodilator/Inhalation Therapy Frequency Bronchodilator - Clinical Indications: History of COPD Breath Sounds: Faint wheezing, decreased throughout Response: No change / no treatment Pulse: <100 Resp Rate: <18 SOB: Limiting speech Total Score: 5 Comment:: Albuterol PRN at home (Symbicort and Incruse Ellipta also listed in MRI TECH meds) Airway Clearance Therapy Frequency Airway Clearance - Clinical Indications: No clinical indications Breath Sounds: Rhonchi / crackles Sputum: Small (tsp) / None Consistency: None Cough Effort: Strong/ non-productive Color: None Total Score: 1 Comment: not indicated Hyperinflation Therapy Frequency Hyperinflation - Clinical Indications: Decreased breath sounds with increased FiO2 Breath Sounds: Diminished / crackles Surgery: No X-Ray / Atelectasis: No O2 Requirements: 2-4 L above baseline (on CPAP 30%) Mobility Status: In bed Total: 7 Comment: On v60 Action/Events Respiratory events; Patient arrived in the ED this evening on NRB, satting in upper 90s, RR in mid 20s. Pre report, wastachypneic labored breathing and satting in mid 80s on room air. Placed on CPAP of 8 cmH2O @ 30% FiO2 around 1924. Patient able to complete consult with this writerat this time while on mask.The following was noted following our dialogue: - Use nocturnal oxygen at home for HUEY, up to 2L NC. - CPAP/BIPAP use at baseline - No, patient had a scheduled sleep study recently however was unable to attend due to being sick. No NIV use at home. - Significant pulmonary history to note - Yes - COPD history, takes PRN albuterol, symbicort, and incruse elipta at home. Patient noted no relief in dyspnea today despite albuterol inhaler and duonebgiven at urgent care. - Patient is able to self administer MDI and does not need assistance from respiratory at this time. . An mdi spacer was not provided at this time. VBG was obtained @ 1951 while patient was on CPAP. 7.36 / 34 / 29 / 20 with a base deficit of -5. Results from iSTAT were entered into the flowsheet and MD Hamm was notified. Weaned to 4L NC shortly after VBG results, breathing appearing eupneic at this time. Plan; Plan for patient includes: Nursing to administer metered dose inhalers. Wean oxygen as tolerated. Will continue to monitor respiratory status while in ED setting. ELVIN LIN, 06/09/22 documented in this encounter ED Notes * Yessica Mcfarlane RN - 06/09/2022 2339 EDT Pt discharged home with instructions to follow up with PCP. Pt states she has an appt this Tuesday. Pt VSS on room air upon discharge, denies any SOB upon exertion. Pt walked to the waiting room to wait for cab. * Yessica Mcfarlane RN - 06/09/2022 2228 EDT Pt up to bedside commode with minimal assistance, SpO2 sustained at 95% on room air. Pt also complains of continued abdominal pain. * Laurent Chaudhry MD - 06/09/20229 EDT I, Laurent Chaudhry MD, performed a history and exam of this patient and discussed the case with theresident. I have reviewed and edited this note, and the documentation is consistent with my findings, assessment and plan. I fully participated in the medical decision making. Emergency Department Visit Assessment and ED Course 61-year-old female with past medical history significant for COPD, heart failure with preserved ejection fraction, HUEY, small bowel obstruction presents to the emergency department for evaluation of shortness of breath. Differential diagnosis includes but is not limited to heart failure exacerbation, COPD exacerbation, electrolyte abnormality, pneumonia, anemia, deconditioning. Patient is requiring a few extra liters from her home oxygen which is 2 L. On physical exam she is grossly volume overloaded with pitting edema in bilateral lower extremities. We will proceed with bedside echo as well as a CT of the abdomen pelvis due to. Patient's nausea and vomiting and decreased bowel movements over the last few days. Laboratory work-up ordered as well. Laboratory results significant for relatively normal VBG with pH of 7.36 and CO2 of 34. Lactate of 1.2, creatinine unchanged from previous at 1.12, troponin negative, BNP 55, no significant changes on CBC with stable anemia of just over ten. Bedside ultrasound shows evidence of possible pulmonary edema with heart has normal ejection fraction and slightly plethoric IVC. Patient given 40 mg of Lasix IV. Chest x-ray shows evidence of hydrostatic edema. CT of the abdomen pelvis shows no evidence of an acute bowel obstruction. Sinus rhythm with a ventricular rate of 80, no significant ST segment elevations noted, relatively unchanged from previous EKG. Patient reassessed setting well at 95% on her home 2 L of oxygen. Ambulated without the satting episodes. Patient noted to be slightly hypotensive with systolics in 80s and diastolics in the 50s. It appears the patient at her baseline has systolics of 90s and diastolics in the low 50s. Patient mentating well. No signs of endorgan ischemia on laboratory work-up. Patient would like to return home Ibelieve it is reasonable right now as she is well-appearing and currently tolerating p.o. intake well with fluids and Zofran here in the emergency department. Discussed patient to have return precautions and patient ducted to increase her Lasix to 60 daily as I believe her nausea and vomiting had caused her to miss a few doses and possibly contributed to her overall edematous picture. Patient discharged from the emergency department with return precautions. Final diagnoses: Acute on chronic congestive heart failure, unspecified heart failure type ([facility]) ([facility]) Disposition: Discharged Chief complaint: Shortness of breath HPI 61-year-old female with past medical history significant for COPD, heart failure with preserved ejection fraction, HUEY, small bowel obstruction presents to the emergency department for evaluation of shortness of breath. Patient noted to be satting in 80s when picked up by EMS. States that she has been having nausea and vomiting over the last few days her last bowel movement was 2 days ago. She not es that she is having some abdominal pain. She states that she has not been able to take her home Lasix and has been increasingly edematous over the past few days. She notes no new recent sick contacts. States that she has not been running any fevers at home. History was provided by: Patient medical record Patient's pertinent PMH, FH, SH were reviewed and edited as necessary. ROS A 10-point review of systems was performed. The patient answered negative to all questions with theexceptions of those explicitly detailed as positives in the HPI. Pertinent negatives are also explicitly stated. Physical Exam BP 92/48 Temp 37.1 ??C (98.8 ??F) (Oral) Resp 11 SpO2 94% A medical screening exam was performed. Physical Exam Nursing notes and vital signs were reviewed. Constitutional: Slightly increased work of breathing on BiPAP at arrival HEENT: Clear conjunctivae Mouth: Moist oral mucosa without apparent lesions Neck: Full ROM Heart: Palpable pulse, well perfused Lungs: Slight wheezing noted in bilateral lung godwin Abdomen: Soft NT/ND, +BS Skin: No overt rashes or lesions on exposed skin Extremities: 3+ edema bilateral lower extremities Neuro: CN grossly intact, normal speech. An EKG was obtained and independently interpreted. Imaging obtained was reviewed and independently interpreted. Procedures Procedures documented in this encounter Plan of Treatment Upcoming Encounters Date Type Department Care Team (Late st Contact Info) Description 01/04/2025 13:00 EST Office Visit [facility] Ophthalmology - [address] [address] Gagandeep Rome MD [address] [place] [address], [facility] [address] [place] [phone] 02/11/2025 13:30 EDT Telemedicine [facility] Hematology & Oncology - [address] [phone] Dana Padilla MD [address] [place] [address], [facility] [address] [place] [phone] documented as of this encounter Procedures Procedure Name Priority Date/Time Associated Diagnosis Comments ECG REPORT - SCANNED 06/20/2022 12:59 EDT URINE CHEMICAL (DIP) & SEDIMENT (MICRO) WITH REFLEX TO CULTURE STAT 06/09/2022 22:[address] ABDOMEN PELVIS WO CONTRAST STAT 06/09/2022 21:36 EDT XR CHEST PORTABLE 1 VIEW STAT 06/09/2022 19:59 EDT ZZCOVID-19 TEST [facility] PCR Today 06/09/2022 19:57 EDT COVID-19 TESTING Routine 06/09/2022 19:5 7 EDT POCT BLOOD GAS, EG6 I-STAT Routine 06/09/2022 19:52 EDT LACTIC ACID WITH REFLEX - USE FOR INITIAL SEPSIS EVALUATION STAT 06/09/2022 19:45 EDT HOLD BLUE TOP STAT 06/09/2022 19:45 EDT TROPONIN I STAT 06/09/2022 19:45 EDT COMPLETE BLOOD COUNT AND DIFFERENTIAL STAT 06/09/2022 19:45 EDT NT PRO BNP STAT 06/09/2022 19:45 EDT MAGNESIUM STAT 06/09/2022 19:45 EDT COMPREHENSIVE METABOLIC PANEL (CMP) STAT Add-on 06/09/2022 19:45 EDT EKG 12-LEAD STAT 06/09/2022 19:35 EDT documented in this encounter Results * ECG REPORT - SCANNED (06/20/2022 12:59 EDT) 06/20/2022 12:5 9 EDT us Scan 2 [place] PROCEDURE/MINOR SURGICAL OR DERABLES Final Result * (ABNORMAL) URINE CHEMICAL (DIP) & SEDIMENT (MICRO) WITH REFLEX TO CULTURE (06/09/2022 22:20 EDT) Color UA Yellow Colorless, Yellow 06/09/2022 22:38 [facility] Clarity UA Clear Clear 06/09/2022 22:38 [facility] Glucose UA Negative Negative 06/09/2022 22:38 [facility] Bilirubin UA Negative Negative 06/09/2022 22:38 [facility] Ketones UA Negative Negative 06/09/2022 22:38 [facility] Specific [place], Urine 1.009 1.001 - 1.035 06/09/2022 22:38 [facility] Blood UA 1+(A) Negative 06/09/2022 22:38 [facility] Urobilinogen UA Normal Normal mg/dL 06/09/2022 22:38 [facility] Nitrite UA Negative Negative 06/09/2022 22:38 [facility] Leukocyte Esterase UA Negative Negative 06/09/2022 22:38 [facility] Protein UA Negative Negative 06/09/2022 22:38 [facility] pH, UA 6.5 4.6 - 8.0 06/09/2022 22:38 [facility] Urine RBC Count, Auto 11 - 50(A) 0 - 2 Cells/HPF 06/09/2022 22:38 [facility] Urine WBC Count, Auto 0 - 3 0 - 3 Cells/HPF 06/09/2022 22:38 [facility] Urine Squamous Count, Auto Few(A) None Seen Cells/HPF 06/09/2022 22:38 [facility] Urine Hyaline Cast Count, Auto <=10 <=10 Casts/LPF 06/09/2022 22:38 [facility] Urine Bacteria Count, Auto None Seen None Seen Bacteria/HP F 06/09/2022 22:38 [facility] Urine URINE SPECIMEN COLLECTION, CLEAN CATCH / Unknown Urine Collect / Unknown 06/09/2022 22:20 [facility] 06/09/2022 22:28 EDT Narrative [facility] - 06/09/2022 22:38 EDT NOTE: Reflex to Urine Culture test is not indicated based on Urine Sediment Analysis results. Urine Sediment Analysis results are unreliable on urines that are unrefrigerated for >2 hrs or refrigerated >8 hrs. us Yogi Hamm MD URINALYSIS ORDERABLES Final Res ult [facility] [address] [place] [address] * CT ABDOMEN PELVIS WO CONTRAST (06/09/2022 21:36 EDT) Anatomical Region Laterality Modality Body, Abdomen, Pelvis, Abdomen and Pelvis Computed Tomography 06/10/2022 8:24 EDT Impressions 06/10/2022 8:24 EDT 1. ??No acute abnormality abdomen or pelvis, specifically no evidence of bowel obstruction. 2. ??Interval increase in size of a solid pulmonary nodule, now measuring 2 cm in the left lung base, consider PET CT. 3. ??Additional unchanged findings noted above including partial infarction [...] interpretation and agree with the findings. Narrative 06/10/2022 8:[address] ABDOMEN PELVIS WO CONTRAST ??06/09/2022 9:20 PM Signs and Symptoms/Comments: ?? Bowel obstruction high-grade suspected Technique: CT of [...] No contour deforming lesion. 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 Ultimately. Partial [...] reflects known thrombus as seen on prior contrast-enhanced study. Abdominal wall: No bowel containing hernia. Prior ventral hernia repair to the right of midline. There is edema in the subcutaneous tissues. Calcified nodules in the posterior subcutaneous tissues, unchanged. Musculoskeletal: No concerning osseous lesion. Multilevel degenerative changes in the spine. Entertainment Reporter: No additional findings. Procedure Note Hattie Stokes MD - 06/10/2022 CT ABDOMEN PELVIS WO CONTRAST 06/09/2022 9:20 PM Signs and Symptoms/Comments: Bowel obstruction high-grade suspected Technique: CT of the abdomen and pelvis was performed without the administration ofintravenous contrast. Comparison: CT abdomen pelvis 04/23/2022. Findings: Lower chest: There is a 2 cm solid nodule in the left lung base (axial#38), increased in size since 04/23/2022 (at that time measuring 1 cm)scattered atelectasis or scarring. Hepatobiliary: Redemonstrated cirrhotic configuration of the liver. Nocontour deforming lesion. Patient is status post cholecystectomy. Commonbile duct measures up to 11 mm without significantly changed from priorand likely related to cholecystectomy. Spleen, pancreas, adrenal glands: No contour deforming lesion.Redemonstrated partial infarction of the spleen compatible with priorembolization. Ultimately. Partial fatty replacement of the pancreas. Nopancreatic ductal dilatation. Kidneys, ureters, bladder: No contour deforming renal lesion. Nonephrolithiasis. No hydroureteronephrosis. Urinary bladder isunremarkable. Uterus, ovaries: Status post hysterectomy. No adnexal mass. Bowel: No acute inflammatory changes or evidence of bowel obstruction. Nosignificant diverticular disease. Patient is status post appendectomy. Peritoneal cavity: No free air. Small volume perisplenic free fluid. Lymphovascular: No lymphadenopathy. Normal aorta is normal in caliber.Embolization coil in the splenic artery. Heterogeneous appearance of theenlarged portal vein likely reflects known thrombus as seen on priorcontrast-enhanced study. Abdominal wall: No bowel containing hernia. Prior ventral hernia repair tothe right of midline. There is edema in the subcutaneous tissues.Calcified nodules in the posterior subcutaneous tissues, unchanged. Musculoskeletal: No concerning osseous lesion. Multilevel degenerativechanges in the spine. Entertainment Reporter: No additional findings. IMPRESSION 1. No acute abnormality abdomen or pelvis, specifically no evidence ofbowel obstruction. 2. Interval increase in size of a solid pulmonary nodule, now measuring 2cm in the left lung base, consider PET CT. 3. Additional unchanged findings noted above including partial infarctionof the spleen and enlargement and partial thrombosis of the portal vein.There is now small volume ascites adjacent to the spleen. This study was performed without intravenous contrast due to theinternational contrast shortage. This may result in decreased sensitivityand/or specificity. I have personally reviewed the images and the above interpretation andagree with the findings. us Yogi Hamm MD IM CT ORDERABLES Final Result * XR CHEST PORTABLE 1 VIEW (06/09/2022 19:59 EDT) Anatomical Region Laterality Modality Computed Radiogr aphy 06/09/2022 20:0 4 EDT Impressions 06/09/2022 20:04 EDT 1. ??Findings suggestive of hydrostatic pulmonary edema, as detailed above Narrative 06/09/2022 20:04 EDT XR CHEST PORTABLE 1 VIEW ??06/09/2022 7:50 PM CLINICAL HISTORY/COMMENTS: sob, chf COMPARISON: Chest radiograph 05/07/2022. FINDINGS: Single portable AP view of the chest, 60 degrees semiupright. Lines/tubes: ??None Soft tissues, bones and extrathoracic findings: No significant abnormality apparent. Cardiac and mediastinal contours: Upper limits of normal or borderline enlarged. Lungs and pleura: The coronary vessels appear engorged and indistinct with diffusely increased pulmonary septal markings bilaterally consistent with interstitial pulmonary edema. Hazy opacities in the infrahilar and lower lung regions bilaterally could represent developing edema or dependent layering of small effusions. No visible pneumothorax however a pneumothorax cannot be entirely excluded on this nonupright AP portable chest radiograph. Procedure Note Jordan Manzano MD - 06/09/2022 XR CHEST PORTABLE 1 VIEW 06/09/2022 7:50 PM CLINICAL HISTORY/COMMENTS: sob, chf COMPARISON: Chest radiograph 05/07/2022. FINDINGS: Single portable AP view of the chest, 60 degrees semiupright. Lines/tubes: None Soft tissues, bones and extrathoracic findings: No significant abnormalityapparent. Cardiac and mediastinal contours: Upper limits of normal or borderlineenlarged. Lungs and pleura: The coronary vessels appear engorged and indistinct withdiffusely increased pulmonary septal markings bilaterally consistent withinterstitial pulmonary edema. Hazy opacities in the infrahilar and lowerlung regions bilaterally could represent developing edema or dependentlayering of small effusions. No visible pneumothorax however apneumothorax cannot be entirely excluded on this nonupright AP portablechest radiograph. IMPRESSION 1. Findings suggestive of hydrostatic pulmonary edema, as detailedabove Laurent Chaudhry MD IMG DIAGNOSTIC IMAGING ORDE THERESA Final Result * COVID-19 TEST [facility] PCR (06/09/2022 19:57 EDT) Swab ENTIRE NASOPHARYNX / Unknown Swab / Unknown 06/09/2022 19:57 EDT 06/09/2022 20:00 EDT Laurent Chaudhry MD MICROBIOLOGY - GENERAL ORDE RABLES Final Result [facility] [address] [place] [address] * COVID-19 TESTING (06/09/2022 19:57 EDT) COVID-19 rt-PCR Result Negative Negative 06/09/2022 21:06 EDT [facility] Comment: This test has [...] history, and epidemiological information. Performed on the [employer] GeneXpert Instrument Performing Lab GeneXpert [facility] 06/09/2022 21:06 EDT [facility] Swab ENTIRE NASOPHARYNX / Unknown Swab / Unknown 06/09/2022 19:57 EDT 06/09/2022 20:00 EDT us Laurent Chaudhry MD MICROBIOLOGY - GENERAL ORDE THERESA Final Result [facility] [address] [place] [address] * (ABNORMAL) POCT BLOOD GAS, EG6 I-STAT (06/09/2022 19:52 EDT) pH, Venous, i-STAT 7.36 7.31 - 7.41 06/09/2022 19:56 T [facility] pCO2, Venous, i-STAT 34(L) 41 - 51 mmHg 06/09/2022 19:56 [facility] pO2, Venous, i-STAT 29(L) 30 - 50 mmHg 06/09/2022 19:56 T [facility] TCO2, Venous, i-STAT 20(L) 22 - 28 mmol/L 06/09/2022 19:56 EDT [facility] O2 Saturation, Venous, i-STAT 53(L) 60 - 85 % 06/09/2022 19:56 [facility] Base Excess(+) / Deficit(-), Venous, i-STAT -5(L) -2 - 3 mmol/L 06/09/2022 19:56 [facility] Blood VENOUS BLOOD / Unknown 06/09/2022 19:52 EDT 06/09/2022 19:56 EDT Narrative [facility] - 06/09/2022 19:56 EDT Test Performed by Respiratory Yogi Hamm MD POINT OF CARE TEST ORDERABLES F inal Result [facility] [address] [place] [address] * (ABNORMAL) COMPREHENSIVE METABOLIC PANEL (CMP) (06/09/2022 19:45 EDT) Sodium 138 136 - 145 mmol/L 06/09/2022 20:35 [facility] Potassium 3.6 3.5 - 5.0 mmol/L 06/09/2022 20:35 [facility] Chloride 103 96 - 110 mmol/L 06/09/2022 20:35 [facility] CO2 Total 29 22 - 32 mmol/L 06/09/2022 20:35 [facility] Glucose 98 70 - 100 mg/dL 06/09/2022 20:35 [facility] BUN 12 10 - 26 mg/dL 06/09/2022 20:35 [facility] Creatinine 1.12(H) 0.52 - 1.04 mg/dL 06/09/2022 20:35 [facility] eGFR 56(L) >60 mL/min/1.7 3m2 06/09/2022 20:35 [facility] Total Protein 6.7 6.3 - 8.2 g/dL 06/09/2022 20:35 [facility] Albumin 3.7 3.4 - 4.9 g/dL 06/09/2022 20:35 [facility] Alkaline Phosphatase 120 38 - 126 U/L 06/09/2022 20:35 [facility] [facility] AST 27 15 - 46 U/L 06/09/2022 20:35 EDT [facility] ALT 13 <35 U/L 06/09/2022 20:35 EDT [facility] Bilirubin, Total 0.6 <1.4 mg/dL 06/09/20 20:35 EDT [facility] Calcium 8.7 8.5 - 10.5 mg/dL 06/09/2022 20:35 EDT [facility] Albumin/Globulin Ratio 1.2 1.0 - 2.5 06/09/2022 20:35 EDT [facility] Anion Gap 6 5 - 14 06/09/2022 20:35 T [facility] Blood VENOUS BLOOD / Unknown Venipuncture / Unknown 06/09/2022 19:45 EDT 06/09/2022 19:49 EDT Laurent Chaudhry MD CHEMISTRY & BLOOD GAS ORDER YANN Final Result Performing Organization Address [facility] Co de Phone Number [facility] [address] [place] [address] * NT PRO BNP (06/09/2022 19:45 EDT) NT-pro BNP 55 <125 pg/mL 06/09/2022 20:40 EDT [facility] Comment:The results of this assay can be falsely lowered due to consumption of Biotin. Blood VENOUS BLOOD / Unknown Venipuncture / Unknown 06/09/2022 19:45 EDT 06/09/2022 19:49 EDT Laurent Chaudhry MD CHEMISTRY & BLOOD GAS ORDER YANN Final Result Performing Organization Address [facility]/ZIP Co de Phone Number [facility] [address] [place] [address] * LACTIC ACID WITH REFLEX - USE FOR INITIAL SEPSIS EVALUATION (06/09/2022 19:45 EDT) Lactic Acid 1.2 <=2.0 mmol/L 06/09/2022 20:35 EDT [facility] Blood VENOUS BLOOD / Unknown Venipuncture / Unknown 06/09/2022 19:45 EDT 06/09/2022 19:49 EDT us Laurent Chaudhry MD CHEMISTRY & BLOOD GAS ORDER YANN Final Result [facility] [address] [place] [address] * HOLD BLUE TOP (06/09/2022 19:45 EDT) Hold Hold 06/09/2022 21:01 EDT [facility] Blood VENOUS BLOOD / Unknown Venipuncture / Unknown 06/09/2022 19:45 EDT 06/09/2022 19:49 EDT us Laurent Chaudhry MD LAB INFO SERVICE AND SUPPOR T & PHONE RESULT Final Result Performing Organization Address City/[facility]/ZIP Co de Phone Number [facility] [address] [place] [address] * MAGNESIUM (06/09/2022 19:45 EDT) Pathologist [facility] Magnesium 1.7 1.7 - 2.8 mg/dL 06/09/2022 20:35 EDT [facility] Blood VENOUS BLOOD / Unknown Venipuncture / Unknown 06/09/2022 19:45 EDT 06/09/2022 19:49 EDT us Laurent Chaudhry MD CHEMISTRY & BLOOD GAS ORDER YANN Final Result [facility] [address] [place] [address] * TROPONIN I (06/09/2022 19:45 EDT) Troponin I (ng/mL) <0.034 <0.034 ng/mL 06/09/2022 20:40 EDT [facility] Blood VENOUS BLOOD / Unknown Venipuncture / Unknown 06/09/2022 19:45 EDT 06/09/2022 19:49 EDT Narrative [facility] - 06/09/2022 20:40 EDT The results of this assay can be falsely lowered due to the consumption of Biotin. us Laurent Chaudhry MD CHEMISTRY & BLOOD GAS ORDER YANN Final Result [facility] [address] [place] [address] * (ABNORMAL) COMPLETE BLOOD COUNT AND DIFFERENTIAL (06/09/2022 19:45 EDT) WBC 3.28(L) 4.00 - 12.40 K/cmm 06/09/2022 20:00 [facility] RBC 3.63(L) 3.86 - 5.04 M/cmm 06/09/2022 20:00 [facility] Hemoglobin 10.1(L) 11.6 - 15.2 gm/dL 06/09/2022 20:00 [facility] HCT 31.2(L) 34.9 - 44.4 % 06/09/2022 20:00 [facility] MCV 86 81 - 98 fl 06/09/2022 20:00 [facility] MCH 27.8 26.7 - 33.3 pg 06/09/2022 20:00 [facility] MCHC 32.4 32.1 - 35.9 gm/dL 06/09/2022 20:00 [facility] RDW-CV 15.1(H) <14.7 % 06/09/2022 20:00 [facility] RDW-SD 47.6 <50.4 fl 06/09/2022 20:00 [facility] PLT 87(L) 141 - 377 K/cmm 06/09/2022 20:00 [facility] MPV 9.5 9.5 - 12.7 fl 06/09/2022 20:00 [facility] % Neutrophils 75.9 % 06/09/2022 20:00 EDT [facility] % Lymphocytes 11.3 % 06/09/2022 20:00 EDT [facility] % Monocytes 11.3 % 06/09[facility]2022 [facility]00 [facility] Eosinophils 1.2 % 06/09/2022 [facility] % Basophils 0.3 % 06/09/2022 [facility]00 [facility] % Immature Grans 0.0 % 06/09/20 20:00 EDT [facility] Absolute Neutrophils 2.49 2.20 - 8.85 K/cmm 06/09/2022 20:00 [facility] Absolute Lymphocytes 0.37(L) 1.09 - 3.30 K/cmm 06/09/2022 20:00 EDT [facility] Absolute Monocytes 0.37 0.10 - 0.80 K/cmm 06/09/2022 20:00 [facility] Absolute Eosinophils 0.04 0.03 - 0.61 K/cmm 06/09/2022 20:00 EDT [facility] ABS Basophils 0.01 0.01 - 0.11 K/cmm 06/09/2022 20:00 [facility] Absolute Immature Grans 0.00 0.00 - 0.06 K/cmm 06/09/2022 20:00 [facility] Type of Differential: Auto 06/09/2022 20:00 [facility] Blood VENOUS BLOOD / Unknown Venipuncture / Unknown 06/09/2022 19:45 EDT 06/09/2022 19:49 EDT us Laurent Chaudhry MD PACKAGES & DNA PROBE ORDERA BLES Final Result [facility] [address] [place] [address] * EKG 12-LEAD (06/09/2022 19:35 EDT) 06/09/2022 19:3 5 EDT Narrative [facility] EKG - 06/20/2022 12:56 EDT ?[facility] Emergency ? Test Date: ?2022-06-09 Pat Name: ? PHYLISS BOOTHE ?Department: ?? ED ? Room: ? AC19 Gender: ? Female ? Piano Builder: ?? [id number] : ?1960 ? Requested By: MAC Leonardo Order Number: [id number] ? Reading MD: ?? VICKEY HEREDIA ? Measurements Intervals ?[place] ? Rate: ? 80 ? P: ?48 ID: ? 150 ?QRS: ?46 QRSD: ? 106 ?T: ?31 QT: ? 392 ? QTc: ?453 ? Interpretive Statements SINUS RHYTHM Automated Interpretation. ??Provider Interpretation to follow. Compared to ECG 06/09/2022 18:19:34 No significant changes I reviewed the tracing and have either agreed or edited the findings in this report. Electronically Signed On 06-20-2022 12:56:06 EDT by VICKEY HEREDIA. Procedure Note Vickey Heredia MD - 06/20/2022 [facility] Emergency Test Date: 2022-06-09 Pat Name: TARA BOOTHE Department: ED Room: [facility] Gender: Female Piano Builder: [id number] : 1960 Requested By: MAC Leonardo Order Number: [id number] Reading MD: VICKEY HEREDIA Measurements Intervals [place] Rate: 80 P: 48 ID: 150 QRS: 46 QRSD: 106 T: 31 QT: 392 QTc: 453 Interpretive Statements SINUS RHYTHM Automated Interpretation. Provider Interpretation to follow. Compared to ECG 06/09/2022 18:19:34 No significant changes I reviewed the tracing and have either agreed or edited the findings inthis report. Electronically Signed On 06-20-2022 12:56:06 EDT by PARRIS. us Laurent Chaudhry MD CARDIAC ECG ORDERABLES Pricila mccord Result [facility] EKG documented in this encounter Visit Diagnoses Diagnosis Acute on chronic congestive heart failure, unspecified heart failure type (HCC-CMS)- Primary documented in this encounter Administered Medications Inactive Administered Medications - up to 3 most recent administrations Medication Order MAR Action Action Date Dose Rate Site fentaNYL citrate (PF) injection 50 mcg 50 mcg, intravenous, NOW X1, 1 dose, On Tue06/09/22 at 2014, STAT Given 06/09/2022 20:54 EDT 50 mcg furosemide (LASIX) injection 40 mg 40 mg, intravenous, NOW X1, 1 dose, On Tue06/09/22 at 2115, STAT Given 06/09/2022 21:41 EDT 40 mg ondansetron (PF) (ZOFRAN) injection 4 mg 4 mg, intravenous, NOW X1, 1 dose, On Tue06/09/22 at 2014, STAT Given 06/09/2022 20:53 EDT 4 mg oxyCODONE (ROXICODONE) immediate release tablet 10 mg 10 mg, oral, NOW X1, 1 dose, On Tue06/09/22 at 2230, STAT Given 06/09/2022 22:37 EDT 10 mg documented in this encounter Active and Recently Administered Medications Times are shown in EDT. Scheduled Medication Order 06/07/2022 06/08/2022 06/09/2022 fentaNYL citrate (PF) injection 50 mcg (COMPLETED) 50 mcg, intravenous, NOW X1, 1 dose, On Tue06/09/22 at 2014, STAT 2053 (Given - Provid er: Elvia Earl RN) furosemide (LASIX) injection 40 mg (COMPLETED) 40 mg, intravenous, NOW X1, 1 dose, On Tue06/09/22 at 2115, STAT 2141 (Given - Provid er: Yessica Mcfarlane RN) ondansetron (PF) (ZOFRAN) injection 4 mg (COMPLETED) 4 mg, intravenous, NOW X1, 1 dose, On Tue06/09/22 at 2014, STAT 2052 (Given - Provid er: Elvia Earl RN) oxyCODONE (ROXICODONE) immediate release tablet 10 mg (COMPLETED) 10 mg, oral, NOW X1, 1 dose, On Tue06/09/22 at 2230, STAT 2237 (Given - Provid er: Yessica Mcfarlane RN) documented in this encounter Additional Health Concerns Infection Onset Date Last Indicated Resolved Time R/O COVID-19 06/09/2022 06/09/2022 06/09/2022 21:1 2 EDT documented as of this encounter Care Teams Hip Hop Artist Relationship Specialty Start Date End Date Emigdio Veronica MD [address] [place] [phone] PCP - General Internal Medicine - Primary Care 05/22/20 02/21/24 Starr Paige MD [address] [facility] [address] Hematology 10/08/21 06/09/22 Dana Padilla MD [address] [facility], [facility] 2 [place] [phone] Hematology 01/13/22 06/09/22 documented as of this encounter
--- OUTSIDE RECORDS SUMMARY | 2024-11-22 17:03 | XMS_ITS | Encounter Summary ---
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 Ophthalmology - [address] [phone] Gagandeep Rome MD [address] [place] [address], [facility] 5 [place] [phone] 02/11/2025 13:30 EDT Telemedicine [facility] Hematology & Oncology - [address] [phone] Dana Padilla MD [address] [place] [address], [facility] 2 [place] [phone] documented as of this encounter Visit Diagnoses Not on filedocumented in this encounter Care Teams Chief Of Staff Relationship Specialty Start Date End Date Emigdio Veronica MD [address] [place] [phone] PCP - General Internal Medicine - Primary Care 05/22/20 02/21/24 documented as of this encounter
--- OUTSIDE RECORDS SUMMARY | 2024-11-22 17:03 | XMS_ITS | Encounter Summary ---
Author Organization [facility] Address [address] [place] [address] Care Team Providers Care Pack Out Operator Name Role Phone Emigdio Veronica MD Primary Care Provider + Starr Paige MD Unavailable [phone] Dana Padilla MD Unavailable Reason for Visit * Reason Onset Date Comments Follow-up 05/20/2022 Encounter Details Date Type Department Care Team (Late st Contact Info) Description 05/20/2022 Telephone [facility] Adult Primary Care - [place] [address] [place] [address] Nguyen Nolasco, LOCAL DELIVERY TRUCK DRIVER [address] [facility], Level [address] [place] [address] Follow-up Social History Tobacco Use Types Packs/Day [...] Start Date Job 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 * Telephone Encounter - Cris Stoll RN - 05/20/2022 1224 EDT Reviewed note with pt. Pt agreed with plan and verbalized understanding with no barriers to learning. * Telephone Encounter - Nguyen Nolasco NP - 05/20/2022 1215 EDT Please call patient and let her know I discussed her case with PCP Dr. Veronica. He agrees with planof: - Take furosemide (lasix) 20mg 4 days of the week, and 40mg 3 days of the week. Perhaps take 20mg Sat, Sun, Tues, Thurs, and 40mg M, W, F. - Get labs checked in 2 weeks (around 06/03) to ensure kidneys are tolerating this dose. - Start spiriva inhaler once daily. This is in addition to Symbicort twice daily. - Please keep f/u with Dr. Veronica and appt with pulmonology upcoming. documented in this encounter Plan of Treatment Upcoming Encounters Date Type Department Care Team (Late st Contact Info) Description 01/04/2025 13:00 EST Office Visit [facility] Ophthalmology - [address] [phone] Gagandeep Rome MD [address] [place] [address] 5 [place] [phone] 02/11/2025 13:30 EDT Telemedicine [facility] [place] Hematology & Oncology - [address] [phone] Dana Padilla MD [address] [place] [address] 2 [place] [phone] documented as of this encounter Visit Diagnoses Not on filedocumented in this encounter Care Teams Pack Out Operator Relationship Specialty Start Date End Date Emigdio Veronica MD [address] [place] [phone] PCP - General Internal Medicine - Primary Care 05/22/20 02/21/24 Starr Paige MD [address] [place] [phone] Hematology 10/08/21 06/09/22 Dana Padilla MD [address] [place] [phone] Hematology 01/13/22 06/09/22 documented as of this encounter
--- OUTSIDE RECORDS SUMMARY | 2024-11-22 17:03 | XMS_ITS | Encounter Summary ---
Author Organization [facility] Address [address] [place] [address] Care Team Providers Care Lead Pressman [employer] Name Role Phone Emigdio Veronica MD Primary Care Provider + Starr Paige MD Unavailable Dana Padilla MD Unavailable Izabella Snowden [facility] Unavailable None, Provider Primary Care Provider UnavailGabriel Dacosta Primary Care Provider Mirna Guerrero Primary Care Provider + Reason for Visit * Reason Onset Date Comments Appointment Related 05/30/2022 Cancel sleep study Wednesday 05/30 Encounter Details Date Type Department Care Team (Late st Contact Info) Description 05/30/2022 Telephone [facility] Sleep Program - [facility] [address] [place] [address] Polysomnogram, [facility] Appointment Related (Cancel sleep study Wednesday 05/30) Social History Tobacco Use Types Packs/Day Years [...] 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 Scheduled for next available date in July and added to waitlist. * Telephone Encounter - Cameron Delgado - 05/30/2022 1339 EDT PAS Message: Tara called to cancel her sleep study at the [facility] on 05/30/22 at 8pm due to illness. She would like the schedulers to call her back to reschedule please. documented in this encounter Plan of Treatment Upcoming Encounters Date Type Department Care Team (Late st Contact Info) Description 01/04/2025 13:00 EST Office Visit [facility] Ophthalmology - [address] [phone] Gagandeep Rome MD [address] [place] [address], Level [address] [place] [phone] 02/11/2025 13:30 EDT Telemedicine [facility] Hematology & Oncology [address] [phone] Dana Padilla MD [address] [facility], [facility], Level [address] [place] [phone] documented as of this encounter Visit Diagnoses [...] documented as of this encounter Care Teams Lead Pressman [employer] Relationship Specialty Start Date End Date Emigdio Veronica MD [address] [place] [phone] PCP - General Internal Medicine - Primary Care 05/22/20 02/21/24 None, Provider PCP - General 02/24/24 03/18/24 Gabriel Gandara PA PCP - General 03/19/24 09/11/24 Mirna Guerrero PA [address] [place] [phone] PCP - General 09/12/24 Starr Paige MD [address] [place] [address] Hematology 10/08/21 06/09/22 Dana Padilla MD [address] [facility], Level [address] [place] [phone] Hematology 01/13/22 06/09/22 Izabella Snowden, [facility] 1 [facility], 3rd [place] [address] Examination Supervisor 02/21/23 05/03/24 documented as of this encounter
--- OUTSIDE RECORDS SUMMARY | 2024-11-22 17:03 | XMS_ITS | Encounter Summary ---
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 Patient declined documented in this encounter Plan of Treatment Upcoming Encounters Date Type Department Care Team (Late st Contact Info) Description 01/04/2025 13:00 EST Office Visit [facility] Ophthalmology - [address] [phone] Gagandeep Rome MD [address] [place] [address], [facility] 5 [place] [phone] 02/11/2025 13:30 EDT Telemedicine [facility] Hematology & Oncology [address] [phone] Dana Padilla MD [address] [place] [address], [facility] 2 [place] [phone] documented as of this encounter Visit Diagnoses Not on filedocumented in this encounter Care Teams Gizzard Peeler Relationship Specialty Start Date End Date Emigdio Veronica MD [address] [place] [phone] PCP - General Internal Medicine - Primary Care 05/22/20 02/21/24 documented as of this encounter
--- OUTSIDE RECORDS SUMMARY | 2024-11-22 17:03 | XMS_ITS | Encounter Summary ---
Author Organization [facility] Address [address] [place] [address] Care Team Providers Care Guest Services Attendant Name Role Phone Emigdio Veronica MD Primary Care Provider + Izabella Snowden [facility] Unavailable [phone] None, Provider Primary Care Provider Gabriel Wei Primary Care Provider [phone] Mirna Guerrero Primary Care Provider + Reason for Visit * Reason Comments Other Encounter Details Date Type Department Care Team (Late st Contact Info) Description 06/18/2022 [facility] Adult Primary [facility] - [place] [address] [place] [address] Emigdio Veronica MD [address] [place] [address] Other Social History Tobacco Use [...] 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 90 Tablet 1 06/21/2022 08/18/2022 pantoprazole (PROTONIX) 40 mg tablet Take 1 Tablet by mouth 2 times daily. 180 Tablet 3 06/21/2022 05/03/2023 documented in this encounter Miscellaneous Notes * Telephone Encounter - Fatoumata Fowler RN - 06/21/2022 1649 EDT Requested Prescriptions Pending Prescriptions Disp Refills ??? pantoprazole (PROTONIX) 40 mg tablet [Pharmacy Med Name: PANTOPRAZOLE SOD DR 40 MG TAB] 180 Tablet Sig: TAKE 1 TABLET BY MOUTH TWICE A DAY ??? spironolactone (ALDACTONE) 50 mg tablet [Pharmacy Med Name: SPIRONOLACTONE 50 MG TABLET] 90 Tablet 1 Sig: TAKE 1 TABLET BY MOUTH EVERY DAY [facility]/pharmacy #[id number] - [place], [place] - [address] [place] [address] Confirmed Pharmacy? Yes Patient out of medication? Unknown Last Refill Date: 06/03/22 Refills left? (explain exceptions requiring early refill) No Recent Visits Date Type Provider Dept 05/20/22 Office Visit Nguyen Nolasco NP [place] [facility] 02/17/22 Office Visit Emigdio Veronica MD [place] [facility] 02/10/22 Office Visit Darlene Rollins NP [place] [facility] 01/27/22 Office Visit Osmany Matthews MD [place] [facility] 11/25/21 Office Visit Emigdio Veronica MD [place] [facility] 11/11/21 Office Visit Scottie Campuzano PA-C [place] [facility] 10/20/21 Office Visit Emigdio Veronica MD [place] [facility] 10/08/21 Office Visit Emigdio Veronica MD [place] [facility] 09/18/21 Office Visit Scottie Campuzano PA-C [place] [facility] 07/22/21 Office Visit Scottie Campuzano PA-C [place] [facility] Showing recent visits within past 540 days with a meds authorizing provider and meeting all other requirements Future Appointments Date Type Provider Dept 06/25/22 Appointment Emigdio Veronica MD [place] [facility] 08/11/22 Appointment Emigdio Veronica MD [place] [facility] Showing future appointments within next 150 days with a meds authorizing provider and meeting all other requirements Future appointment: Already Scheduled FATOUMATA FOWLER RN 06/21/2022 16:49 documented in this encounter Plan of Treatment Upcoming Encounters Date Type Department Care Team (Late st Contact Info) Description 01/04/2025 13:00 EST Office Visit [facility] Ophthalmology - [address] [phone] Gagandeep Rome MD [address] [place] [address], [facility] 5 [place] [address] 02/11/2025 13:30 EDT Telemedicine [facility] Hematology & Oncology [address] [phone] Dana Padilla MD [address] [place] [address], [facility] 2 [place] [address] documented as of this encounter Visit Diagnoses Not on filedocumented in this encounter Discontinued Medications Medication Sig Discontinue Reason Start Date End Da te spironolactone (ALDACTONE) 50 mg tablet Take 1 Tablet by mouth daily. 03/10/2022 06/21/2022 pantoprazole (PROTONIX) 40 mg tablet Take 1 Tablet by mouth 2 times daily. 06/03/2022 06/21/2022 documented as of this encounter Additional Health Concerns Infection Onset Date Last Indicated Resolved Time R/O COVID-19 07/22/2022 07/22/2022 2022 22:1 5 EDT R/O COVID-19 12/14/2022 12/14/2022 12/14/2022 9:10 EST R/O COVID-19 02/23/2023 02/23/2023 02/23/2023 7:15 EDT R/O COVID-19 04/28/2023 04/28/2023 04/29/2023 0:02 EDT R/O COVID-19 09/07/2023 09/07/2023 09/07/2023 22:1 6 EDT documented as of this encounter Care Teams Guest Services Attendant Relationship Specialty Start Date End Date Emigdio Veronica MD [address] [place] [phone] PCP - General Internal Medicine - Primary Care 05/22/20 02/21/24 None, Provider PCP - General 02/24/24 03/18/24 Gabriel Gandara PA PCP - General 03/19/24 09/11/24 Mirna Guerrero PA [address] [place] [address] PCP - General 09/12/24 Izabella Snowden LICSW 1 [facility], 3rd [place] [phone] Street Light Servicer 02/21/23 05/03/24 documented as of this encounter
--- OUTSIDE RECORDS SUMMARY | 2024-11-22 17:03 | XMS_ITS | Encounter Summary ---
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 Not [...] * Telephone Encounter - Janeth Burns - 06/14/2022 0937 EDT Called pt from wait list to schedule an earlier sleep study, pt declined documented in this encounter Plan of Treatment Upcoming Encounters Date Type Department Care Team (Late st Contact Info) Description 01/04/2025 13:00 EST Office Visit [facility] Ophthalmology - [address] [phone] Gagandeep Rome MD [address] [place] [address], [facility] 5 [place] [phone] 02/11/2025 13:30 EDT Telemedicine [facility] Hematology & Oncology [address] [phone] Dana Padilla MD [address] [place] [address], [facility] 2 [place] [address] documented as of this encounter Visit Diagnoses Not on filedocumented in this encounter Care Teams Trailer Park Manager Relationship Specialty Start Date End Date Emigdio Veronica MD 2 [place] [phone] PCP - General Internal Medicine - Primary Care 05/22/20 02/21/24 documented as of this encounter
--- OUTSIDE RECORDS SUMMARY | 2024-11-22 17:03 | XMS_ITS | Encounter Summary ---
Author Organization [facility] Address [address] [place] [address] Care Team Providers Care Customer Liaison Name Role Phone Emigdio Veronica MD Primary Care Provider + Starr Paige MD Unavailable [phone] Dana Padilla MD Unavailable Reason for Visit * Reason Comments Other Encounter Details Date Type Department Care Team (Late st Contact Info) Description 05/20/2022 [facility] Adult Primary Care - [address] [address] Nguyen Nolasco, LUGGAGE REPAIRER 111 [facility], Level 2 [place] [address] Other Social History Tobacco Use [...] 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 1 Each 05/20/2022 2 documented in this encounter Miscellaneous Notes * Telephone Encounter - Pam Ivey RN - 05/20/2022 6730 EDT Received message from pharmacy. Insurance will not cover Spiriva. Requesting we prescribe preferredmed which is Incruse Ellipta 62.5 mcg/actuation inhaler instead. Routing to provider to advise on appropriateness and dosing. documented in this encounter Plan of Treatment Upcoming Encounters Date Type Department Care Team (Late st Contact Info) Description 01/04/2025 13:00 EST Office Visit [facility] Ophthalmology - [address] [phone] Gagandeep Rome MD [address] [place] [address], [facility] 5 [place] [phone] 02/11/2025 13:30 EDT Telemedicine [facility] Hematology & Oncology [address] [phone] Dana Padilla MD [address] [place] [address], [facility] 2 [place] [phone] documented as of this encounter Visit Diagnoses Diagnosis Chronic obstructive pulmonary disease, unspecified COPD type (HCC-CMS)- Primary documented in this encounter Discontinued Medications Medication Sig Discontinue Reason Start Date End Da te tiotropium (SPIRIVA) 18 mcg inhalation capsuleIndications:Chron ic obstructive pulmonary disease, unspecified COPD type (HCC-CMS) Inhale 1 capsule as directed daily. 05/20/2022 05/20/2022 documented as of this encounter Care Teams Customer Liaison Relationship Specialty Start Date End Date Emigdio Veronica MD 2 [place] [phone] PCP - General Internal Medicine - Primary Care 05/22/20 02/21/24 Starr Paige MD [address] [place] [phone] Hematology 10/08/21 06/09/22 Dana Padilla MD 111 [facility], Level 2 [place] [phone] Hematology 01/13/22 06/09/22 documented as of this encounter
--- OUTSIDE RECORDS SUMMARY | 2024-11-22 17:04 | XMS_ITS | Encounter Summary ---
Author Organization [facility] Address [address] [place] [address] Care Team Providers Care Shipping & Receiving Lead Name Role Phone Emigdio Veronica MD Primary Care Provider + Starr Paige MD Unavailable [phone] Dana Padilla MD Unavailable Reason for Visit * Reason Onset Date Comments Results 04/28/2022 Encounter Details Date Type Department Care Team (Late st Contact Info) Description 04/28/2022 Telephone [facility] Adult Primary Care - [place] 2 [place] [address] Emigdio Veronica MD 2 [place] [address] Results Social History Tobacco Use Types Packs/Day Years Used Date Smoking Tobacco: Some Days Cigarettes 0.3 35 Started: 08/20/1981; Last attempted to quit: 08/20/2016 Smokeless Tobacco: Never Comments:no cigarette x2 wee ks Alcohol Use Standard Drinks/Week Comments No 0 (1 standard drink = 0.6 oz pur e alcohol) Overall Financial Resource Strain (CARDIA) Answe r Date Recorded How hard is it for you to pa y for the very basics like food, housing, medical care, and heating? 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 No / Unsure 04/26/2022 22:02 EDT documented as of this encounter Functional Status * Are you deaf or do you have serious difficulty hearing? Answer Date of Assessment Author No 02/10/2022 18:24 Otilio Romero, KENN * Are you blind or do you have serious difficulty seeing, even when wearing glasses? Answer Date of Assessment Author No 02/10/2022 18:24 Otilio Romero, KENN * Do you have serious difficulty walking or climbing stairs? (5 years old or older) Answer Date of Assessment Author No 02/10/2022 18:24 Otilio Romero, KENN * Do you have difficulty dressing or bathing? (5 years old or older) Answer Date of Assessment Author No 02/10/2022 18:24 Otilio Romero, KENN * Because of a physical, mental, or emotional condition, do you have difficulty doing errands alone such as visiting a doctor's office or shopping? (15 years old or older) Answer Date of Assessment Author No 02/10/2022 18:24 EDT Otilio Dawson RN documented as of this encounter Mental Status * Because of a physical, mental, or emotional condition, do you have serious difficulty concentrating, remembering, or making decisions? (5 years old or older) Answer Entry Date Author No 02/10/2022 18:24 EDT Otilio Dawson RN documented in this encounter Miscellaneous Notes * Telephone Encounter - Karlo Hoff RN - 04/29/2022 0908 EDT Updated patient about the recommendations from Dr Veronica below. The patient indicates understanding of these issues and agrees with the plan. No barriers. * Telephone Encounter - Emigdio Veronica MD - 04/28/2022 1647 EDT I am glad to hear that her weights have come down. I would recommend returning to her baseline diuretic dosage of 50 mg of spirolactone and 20 mg of lasix daily. She should continue to track her weights. Agree with OV in 6 weeks. * Telephone Encounter - Sharon Joseph RN - 04/28/2022 1442 EDT The patient indicates understanding of these issues and agrees with the plan. Since Tuesday pt is down 12 lbs. Pt continues to have some SOB but pt states that it isnt too bad from last week, Pt has been wearing oxygen during the daytime as needed. Swelling in legs and feet has got a little better from Tuesday as well. Pt states that she was supposed to set up a follow up appt a month from Tue with GG but there is not many appts available pt states that she would like to only see GG. Appt scheduled for 06/11 as it was the earliest 30 min available. Pt would like to be on a waitlist as well for an earlier appt. Routing to [facility] and Dr. Veronica * Telephone Encounter - Emigdio Veronica MD - 04/28/2022 1436 EDT Her kidney function has actually improved since increasing her furosemide which is a good sign. There is not much difference in her labs from her most recent draw and the labs obtained at the ED. Her platelets are slowing improving as well. How are her weights trending? * Telephone Encounter - Ebony Toscano - 04/28/2022 1253 EDT Reason for Call: Results Summary/Symptoms: 1. Pt had blood work done this AM, is calling for the results. 2. Pt says she needs to report in regarding her fluid & her weight. Onset and Duration: ongoing Does the patient have a computer, laptop or smart phone with high speed & video capability? N/A If so, would they be interested in doing a video visit via Zoom? N/A Appointment Offered? No Ebony Toscano 04/28/2022 12:54 documented in this encounter Plan of Treatment Upcoming Encounters Date Type Department Care Team (Late st Contact Info) Description 01/04/2025 13:00 EST Office Visit [facility] Ophthalmology - [address] [phone] Gagandeep Rome MD [address] [place] [address], [facility] 5 [place] [address] 02/11/2025 13:30 EDT Telemedicine [facility] Hematology & Oncology [address] [phone] Dana Padilla MD [address] [place] [address], Level [address] [place] [address] documented as of this encounter Visit Diagnoses Not on filedocumented in this encounter Care Teams Shipping & Receiving Lead Relationship Specialty Start Date End Date Emigdio Veronica MD 2 [place] [phone] PCP - General Internal Medicine - Primary Care 05/22/20 02/21/24 Starr Paige MD [facility] [address] [place] [phone] Hematology 10/08/21 06/09/22 Dana Padilla MD 111 [facility] 2 [place] [phone] Hematology 01/13/22 06/09/22 documented as of this encounter
--- OUTSIDE RECORDS SUMMARY | 2024-11-22 17:04 | XMS_ITS | Encounter Summary ---
Author Organization [facility] Address [address] [place] [address] Care Team Providers Care Supervisor Machine Setter Name Role Phone Emigdio Veronica MD Primary Care Provider + Starr Paige MD Unavailable [phone] Dana Padilla MD Unavailable Reason for Visit * Reason Onset Date Comments Medications Refill 05/04/2022 Medication Problem 05/04/2022 Encounter Details Date Type Department Care Team (Late st Contact Info) Description 05/04/2022 Refill [facility] Adult Primary Care - [place] 2 [place] [address] Emigdio Veronica MD 2 [place] [address] Medications Refill; Medication Problem Social History Tobacco Use Types Packs/Day Years [...] 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 Answer Date of Assessment Author No 02/10/2022 18:24 Otilio Romero RN * Do you have serious difficulty [...] Otilio Dawson RN documented in this encounter Ordered Prescriptions Prescription Sig Dispense Quantity Refills Last Filled Start Date End Date traZODone (DESYREL) 100 mg tablet Take 2 Tablets by mouth at bedtime. 180 Tablet 05/04/2022 2 documented in this encounter Miscellaneous Notes * Telephone Encounter - Jes Mayorga RN - 05/04/2022 1533 EDT See provider note from 03-23-22. If no response to 100 mg trazodone after 2 weeks can increase to 200mg At bedtime. Copied from provider note .Per patient request will restart trazodone at 100 mg daily. Discussed that if sleep remains poor over the next 2 weeks can increase trazodone to 200 mg QHS * Telephone Encounter - Karol Copeland - 05/04/2022 1500 EDT Requested Prescriptions Pending Prescriptions Disp Refills ??? traZODone (DESYREL) 100 mg tablet Sig: Take 1 Tablet by mouth. [facility]/pharmacy #[id number] - [place], [place] - [address] Confirmed Pharmacy? Yes Patient out of medication? No, will run out tonight Last Refill Date: 03/23/22 Refills left? (explain exceptions requiring early refill) Yes, Pt states their trazodone was recently increased from 100 mg to 200 mg at bedtime for insomnia sometime beginning of March this year, but a new rx was never sent in for the new instructions. Pt is out of medication early and the pharmacy won't allow an early refill, states pt needs new Rx with current instructions sent to pharmacy. Pt only has enough for tonight. Pt looking for new Rx sent to pharmacy. Recent Visits Date Type Provider Dept 02/17/22 Office Visit Emigdio Veronica MD [place] [facility] 02/10/22 Office Visit Darlene Rollins NP [place] [facility] 01/27/22 Office Visit Osmany Matthews MD [place] [facility] 11/25/21 Office Visit Emigdio Veronica MD [place] [facility] 11/11/21 Office Visit Scottie Campuzano PA-C [place] [facility] 10/20/21 Office Visit Emigdio Veronica MD [place] [facility] 10/08/21 Office Visit Emigdio Veronica MD [place] [facility] 09/18/21 Office Visit Scottie Campuzano PA-C [place] [facility] 07/22/21 Office Visit Scottie Campuzano PA-C [place] [facility] 05/14/21 Office Visit Emigdio Veronica MD [place] [facility] Showing recent visits within past 540 days with a meds authorizing provider and meeting all other requirements Future Appointments Date Type Provider Dept 06/11/22 Appointment Emigdio Veronica MD [place] [facility] 07/07/22 Appointment Emigdio Veronica MD [place] [facility] Showing future appointments within next 150 days with a meds authorizing provider and meeting all other requirements Future appointment: Already Scheduled Karol Copeland 05/04/2022 15:09 documented in this encounter Plan of Treatment Upcoming Encounters Date Type Department Care Team (Late st Contact Info) Description 01/04/2025 13:00 EST Office Visit [facility] Ophthalmology [address] [address] Gagandeep Rome MD [address] [place] [address], Level 5 [place] [phone] 02/11/2025 13:30 EDT Telemedicine [facility] Hematology & Oncology - [address] [address] Dana Padilla MD [address] [place] [phone] documented as of this encounter Visit Diagnoses Not on filedocumented in this encounter Discontinued Medications Medication Sig Discontinue Reason Start Date End Da te traZODone (DESYREL) 100 mg tablet Take 1 Tablet by mouth at bedtime. Reorder 03/23/2022 05/04/2022 documented as of this encounter Care Teams Supervisor Machine Setter Relationship Specialty Start Date End Date Emigdio Veronica MD [address] [place] [phone] PCP - General Internal Medicine - Primary Care 05/22/20 02/21/24 Starr Paige MD [address] [place] [phone] Hematology 10/08/21 06/09/22 Dana Padilla MD [address] [place] [phone] Hematology 01/13/22 06/09/22 documented as of this encounter
--- OUTSIDE RECORDS SUMMARY | 2024-11-22 17:04 | XMS_ITS | Encounter Summary ---
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 Unknown Last Refill Date: 12/10/21 120 tablets with 3 refills Last Visit Date with Ordering Provider: 04/23/22 Next Non-Acute Visit Date Scheduled with Care Team: 06/11/22 ESEQUIEL MENON RN 05/10/2022 9:03 documented in this encounter Plan of Treatment Upcoming Encounters Date Type Department Care Team (Late st Contact Info) Description 01/04/2025 13:00 EST Office Visit [facility] Ophthalmology - [address] [phone] Gagandeep Rome MD [address] [place] [address] 5 [place] [phone] 02/11/2025 13:30 EDT Telemedicine [facility] Hematology & Oncology [address] [phone] Dana Padilla MD [address] [place] [address], Level [address] [place] [address] documented as of this encounter Visit Diagnoses Not on filedocumented in this encounter Discontinued Medications Medication Sig Discontinue Reason Start Date End Da te sucralfate (CARAFATE) 1 gram tablet Take 1 Tablet by mouth 4 times daily. 12/10/2021 05/10/2022 documented as of this encounter Care Teams Tourist Information Assistant Relationship Specialty Start Date End Date Emigdio Veronica MD 2 [place] [phone] PCP - General Internal Medicine - Primary Care 05/22/20 02/21/24 Starr Paige MD [address] [place] [phone] Hematology 10/08/21 06/09/22 Dana Padilla MD [address] [place] [address] 2 [place] [phone] Hematology 01/13/22 06/09/22 documented as of this encounter
--- OUTSIDE RECORDS SUMMARY | 2024-11-22 17:04 | XMS_ITS | Encounter Summary ---
Author Organization [facility] Address [address] [place] [address] Care Team Providers Care House Parent Name Role Phone Emigdio Veronica MD Primary Care Provider + Starr Paige MD Unavailable Dana Padilla MD Unavailable Izabella Snowden 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 (5 years old or older) Answer Date of Assessment Author No 02/10/2022 18:24 EDOtilio Leigh RN * Because of a physical, mental, or emotional condition, do you have difficulty doing errands alone such as visiting a doctor's office or shopping? (15 years old or older) Answer Date of Assessment Author No 02/10/2022 18:24 Otilio Romero RN documented as of this encounter Mental Status * Because of a physical, mental, or emotional condition, do you have serious difficulty concentrating, remembering, or making decisions? (5 years old or older) Answer Entry Date Author No 02/10/2022 18:24 Otilio Romero RN documented in this encounter Ordered Prescriptions Prescription Sig Dispense Quantity Refills Last Filled Start Date End Date ondansetron (ZOFRAN) 4 mg tablet Take 1 Tablet by mouth every 8 hours as needed for Nausea. 30 Tablet 1 05/04/2022 08/16/2022 documented in this encounter Miscellaneous Notes * Telephone Encounter - Alexander Iglesias - 05/04/2022 1543 EDT Medication(s) Requested: ondansetron Preferred Pharmacy: [facility] Is patient out of medication? Unknown Last Refill Date: 03/23 Last Visit Date with Ordering Provider: 04/23 Next Non-Acute Visit Date Scheduled with Care Team: 06/11 ALEXANDER IGLESIAS RN 05/04/2022 15:43 documented in this encounter Plan of Treatment Upcoming Encounters Date Type Department Care Team (Late st Contact Info) Description 01/04/2025 13:00 EST Office Visit [facility] Ophthalmology - [address] [phone] Gagandeep Rome MD [address] [place] [address], [address] [place] [phone] 02/11/2025 13:30 EDT Telemedicine [facility] Hematology & Oncology - [address] [place] [address] Dana Padilla MD [address] [facility], [facility], [address] [place] [phone] documented as of this encounter Visit Diagnoses Not on filedocumented in this encounter Discontinued Medications Medication Sig Discontinue Reason Start Date End Da te ondansetron (ZOFRAN) 4 mg tablet Take 1 Tablet by mouth every 8 hours as needed for Nausea. 03/23/2022 05/04/2022 documented as of this encounter Additional Health Concerns Infection Onset Date Last Indicated Resolved Time R/O COVID-19 Comment:Neg test 05/07/2022 05/07/2022 05/07/2022 15:57 EDT R/O COVID-19 06/09/2022 06/09/2022 06/09/2022 21:1 2 EDT R/O COVID-19 07/22/2022 07/22/2022 2022 22:1 5 EDT R/O COVID-19 12/14/2022 12/14/2022 12/14/2022 9:10 EST R/O COVID-19 02/23/2023 02/23/2023 02/23/2023 7:15 EDT R/O COVID-19 04/28/2023 04/28/2023 04/29/2023 0:02 EDT R/O COVID-19 09/07/2023 09/07/2023 09/07/2023 22:1 6 EDT documented as of this encounter Care Teams House Parent Relationship Specialty Start Date End Date Emigdio Veronica MD [address] [place] [address] PCP - General Internal Medicine - Primary Care 05/22/20 02/21/24 None, Provider PCP - General 02/24/24 03/18/24 Gabriel Gandara PA PCP - General 03/19/24 09/11/24 Mirna Guerrero PA [address] [place] [phone] PCP - General 09/12/24 Starr Paige MD [address] [facility] [place] [address] Hematology 10/08/21 06/09/22 Dana Padilla MD 111 [facility], [address] [place] [address] Hematology 01/13/22 06/09/22 Izabella Snowden, [facility] 1 [facility], 3rd [place] [phone] Mat Worker 02/21/23 05/03/24 documented as of this encounter
--- OUTSIDE RECORDS SUMMARY | 2024-11-22 17:04 | XMS_ITS | Encounter Summary ---
Author Organization [facility] Address [address] [place] [address] Care Team Providers Care Glue Size Machine Operator Name Role Phone Emigdio Veronica MD Primary Care Provider + Starr Paige MD Unavailable [phone] Dana Padilla MD Unavailable Encounter Details Date Type Department Care Team (Late st Contact Info) Description 04/28/2022 9:15 EDT Phlebotomy Only [facility] Laboratory Services - [address] [address] [facility] Portal vein thrombosis; Upper GI bleed; Bilateral lower extremity edema Social History Tobacco Use Types Packs/Day Years [...] 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 (5 years old or older) Answer Date of Assessment Author No 02/10/2022 18:24 Otilio Romero RN * Because of a physical, mental, [...] Otilio [place] RN documented in this encounter Plan of Treatment Upcoming Encounters Date Type Department Care Team (Late st Contact Info) Description 01/04/2025 13:00 EST Office Visit [facility] Ophthalmology - [address] [phone] Gagandeep Rome MD [address] [place] [address] 5 [place] [address] 02/11/2025 13:30 EDT Telemedicine [facility] Hematology & Oncology [address] [phone] Dana Padilla MD [address] [place] [address] 2 [place] [address] documented as of this encounter Procedures Procedure Name Priority Date/Time Associated Diagnosis Comments COMPLETE BLOOD COUNT Routine 04/28/2022 9:24 EDT Portal vein thrombosis Upper GI bleed BASIC METABOLIC PANEL (BMP) Routine 04/28/2022 9:24 EDT Bilateral lower extremity edema documented in this encounter Results * (ABNORMAL) BASIC METABOLIC PANEL (BMP) (04/28/2022 9:24 EDT) Sodium 142 136 - 145 mmol/L 04/28/2022 11:48 EDT [facility] Potassium 3.7 3.5 - 5.0 mmol/L 04/28/2022 11:48 EDT [facility] Chloride 107 96 - 110 mmol/L 04/28/2022 11:48 EDT [facility] CO2 Total 25 22 - 32 mmol/L 04/28/2022 11:48 EDT [facility] Anion Gap 10 5 - 14 04/28/2022 11:48 [facility] Glucose 85 70 - 100 mg/dL 04/28/2022 11:48 [facility] Calcium 8.2(L) 8.5 - 10.5 mg/dL 04/28/2022 11:48 [facility] BUN 21 10 - 26 mg/dL 04/28/2022 11:48 [facility] Creatinine 1.15(H) 0.52 - 1.04 mg/dL 04/28/2022 11:48 [facility] eGFR 54(L) >60 mL/min/1.73 m2 04/28/2022 11:48 [facility] Blood VENOUS BLOOD / Unknown Venipuncture / Unknown 04/28/2022 9:24 EDT 04/28/2022 9:24 EDT Emigdio Veronica MD CHEMISTRY & BLOOD GAS OR DERABLES Final Result [facility] [address] [place] [address] * (ABNORMAL) COMPLETE BLOOD COUNT (04/28/2022 9:24 EDT) WBC 4.99 4.00 - 12.40 K/cmm 04/28/2022 11:42 [facility] RBC 4.02 3.86 - 5.04 M/cmm 04/28/2022 11:42 [facility] Hemoglobin 11.7 11.6 - 15.2 gm/dL 04/28/2022 11:42 [facility] HCT 34.8(L) 34.9 - 44.4 % 04/28/2022 11:42 [facility] MCV 87 81 - 98 fl 04/28/2022 11:42 [facility] MCH 29.1 26.7 - 33.3 pg 04/28/2022 11:42 [facility] MCHC 33.6 32.1 - 35.9 gm/dL 04/28/2022 11:42 EDT [facility] RDW-CV 15.0(H) <14.7 % 04/28/2022 11:42 EDT [facility] RDW-SD 47.8 <50.4 fl 04/28/2022 11:42 EDT [facility] PLT 89(L) 141 - 377 K/cmm 04/28/2022 11:42 EDT [facility] MPV 10.2 9.5 - 12.7 fl 04/28/2022 11:42 EDT [facility] Blood VENOUS BLOOD / Unknown Venipuncture / Unknown 04/28/2022 9:24 EDT 04/28/2022 9:24 EDT Dana Padilla MD HEMATOLOGY & PF4 ORDERABLES Pricila l Result [facility] [address] [place] [address] documented in this encounter Visit Diagnoses Diagnosis Portal vein thrombosis Upper GI bleed Hemorrhage of gastrointestinal tract, unspecified Bilateral lower extremity edema Edema documented in this encounter Care Teams Glue Size Machine Operator Relationship Specialty Start Date End Date Emigdio Veronica MD [address] [place] [phone] PCP - General Internal Medicine - Primary Care 05/22/20 02/21/24 Starr Paige MD [address] [facility] [phone] Hematology 10/08/21 06/09/22 Dana Padilla MD 111 [facility], [facility], [address] [place] [address] Hematology 01/13/22 06/09/22 documented as of this encounter
--- OUTSIDE RECORDS SUMMARY | 2024-11-22 17:04 | XMS_ITS | Encounter Summary ---
Author Organization 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 * Telephone Encounter - Cari Jones RN - 05/19/2022 0947 EDT Pt is planning to having labs done this morning. * Telephone Encounter - Nguyen Nolasco NP - 05/19/2022 0940 EDT Can you please ask patient if she can get labs done today? If not, would need to be first thing tomorrow morning so results are available for appt ideally. Given increased lasix dosage, need to checkrenal function. * Telephone Encounter - Karol Armstrong RN - 05/12/2022 1339 EDT Updated patient about the recommendations from Dr Veronica below. The patient indicates understanding of these issues and agrees with the plan. No barriers. Patient scheduled for 30 min transition of care with Nguyen Nolasco next week, Dr Veronica doesn't have any appointments next week, but will be in the clinic during this session. Patient aware to get labs on 05/20/22. * Telephone Encounter - Emigdio Veronica MD - 05/12/2022 1235 EDT Patient should continue furosemide 40 mg daily for now, we can discuss the dosage more at our next visit. If a 05/21 appointment is available she can be scheduled for an f30. It should be in person given hervolume overload complaints. A physical exam and vitals will be very important and we cannot obtain these from telemedicine visits reliably. Telemedicine visits should be scheduled as video visits. We can clarify if rules have changed with the armed security officer, but phone visit scheduling should be highly restricted given reimbursement restrictions from insurers. Patient should almost never be scheduled for a 15 minute appointment. Not a single visit the patient has had in this office has been in regards to a single simple problem. Her visits have almost entirely involved complex multiple problem / organ dysfunction management. Her visits even if telemedicine should be 30-45 minutes in length. Should she be scheduled with myself or another provider on 05/21 she can obtain repeat labs prior to that visit. I have ordered the labs now. Her echocardiogram was normal. Her left ventricle size, function and EF was normal. Her volume overload state relates to her cirrhosis not heart failure that is what her echocardiogram confirmed. * Telephone Encounter - Karol Armstrong RN - 05/12/2022 1016 EDT Hospital Discharge Follow Up: Risk Assessment: medium 95% Reason for admission: SOB fluid overlodad Symptoms improving? yes Discharge instructions available? yes Medications Reviewed/prescriptions filled? Yes Support at home? yes Home health service/issues? no - N/A Questions about discharge instructions? yes see below Follow-up visit scheduled? no - see below Education/Plan: When and what should patient get for follow up blood work? Should patient continue on the furosemide 40 mg daily, for how long? Patient would like clarification of Echo results, specifically left ventricle what it means and ifI should do anything? When would you like to see patient for follow up? Currently PCP has a 30 min on 05/21 but patient says she normally does phone visits with PCP, should this be booked as a phone, or an earlier 15 min phone if available? KAROL ARMSTRONG RN 05/12/2022 * Telephone Encounter - Noemi Hall - 05/12/2022 0914 EDT Reason for Call: Hospital Discharge Follow Up Summary/Symptoms: patient has been discharged from the hospital. Had an US on Tuesday but has not heard anything. patient states was told to call PCP office Onset and Duration: yesterday Does the patient have a computer, laptop or smart phone with high speed & video capability? N/A If so, would they be interested in doing a video visit via Zoom? N/A Appointment Offered? No Noemi Hall 05/12/2022 9:15 documented in this encounter Plan of Treatment Upcoming Encounters Date Type Department Care Team (Late st Contact Info) Description 01/04/2025 13:00 EST Office Visit [facility] Ophthalmology - [address] [phone] Gagandeep Rome MD [address] [place] [address], [facility] 5 [place] [address] 02/11/2025 13:30 EDT Telemedicine [facility] Hematology & Oncology - [address] [phone] Dana Padilla MD [address] [place] [address], [address] [place] [address] documented as of this encounter Results * (ABNORMAL) COMPREHENSIVE METABOLIC PANEL (CMP) (05/19/2022 12:41 EDT) Sodium 140 136 - 145 mmol/L 05/19/2022 14:32 EDT [facility] Potassium 3.9 3.5 - 5.0 mmol/L 05/19/2022 14:[facility] Chloride 104 96 - 110 mmol/L 05/19/2022 14:32 [facility] CO2 Total 28 22 - 32 mmol/L 05/19/2022 14:32 [facility] Glucose 94 70 - 100 mg/dL 05/19/2022 14:32 [facility] BUN 17 10 - 26 mg/dL 05/19/2022 14:32 [facility] Creatinine 1.09(H) 0.52 - 1.04 mg/dL 05/19/2022 14:32 [facility] eGFR 58(L) >60 mL/min/1.7 3m2 05/19/2022 14:32 [facility] Total Protein 7.0 6.3 - 8.2 g/dL 05/19/2022 14:32 [facility] Albumin 4.0 3.4 - 4.9 g/dL 05/19/2022 14:32 [facility] Alkaline Phosphatase 124 38 - 126 U/L 05/19/2022 14:32 [facility] AST 24 15 - 46 U/L 05/19/2022 14:32 [facility] ALT 14 <35 U/L 05/19/2022 14:32 [facility] Bilirubin, Total 0.6 <1.4 mg/dL 05/19/20 14:32 [facility] Calcium 8.7 8.5 - 10.5 mg/dL 05/19/2022 14:32 [facility] Albumin/Globulin Ratio 1.3 1.0 - 2.5 05/19/2022 14:32 [facility] Anion Gap 8 5 - 14 05/19/2022 14:32 [facility] Blood VENOUS BLOOD / Unknown Venipuncture / Unknown 05/19/2022 12:41 EDT 05/19/2022 12:41 EDT us Emigdio Veronica MD CHEMISTRY & BLOOD GAS OR DERABLES Final Result [facility] [address] [place] [address] documented in this encounter Visit Diagnoses Diagnosis Other cirrhosis of liver (HCC-CMS)- Primary Thrombocytopenia (HCC-CMS) Thrombocytopenia, unspecified documented in this encounter Orders Lab Orders Without Results Count Last Ordered D ate First Ordered Date COMPLETE BLOOD COUNT 1 05/12/2022 documented in this encounter Care Teams University Lecturer Relationship Specialty Start Date End Date Emigdio Veronica MD [address] [place] [address] PCP - General Internal Medicine - Primary Care 05/22/20 02/21/24 Starr Paige MD [address] [place] [phone] Hematology 10/08/21 06/09/22 Dana Padilla MD 111 [facility] 2 [place] [address] Hematology 01/13/22 06/09/22 documented as of this encounter
--- OUTSIDE RECORDS SUMMARY | 2024-11-22 17:04 | XMS_ITS | Encounter Summary ---
Author Organization [facility] Address [address] [place] [address] Care Team Providers Care Family Lawyer Name Role Phone Emigdio Veronica MD Primary Care Provider + Starr Paige MD Unavailable [phone] Dana Padilla MD Unavailable Izabella Snowden [facility] Unavailable None, Provider Primary Care Provider UnavailGabriel Dacosta Primary Care Provider Mirna Guerrero Primary Care Provider + Reason for Visit * Reason Comments Other Encounter Details Date Type Department Care Team (Late st Contact Info) Description 05/15/2022 [facility] Adult Primary Care - [place] [address] [place] [address] Emigdio Veronica MD [address] [place] [address] Other Social History Tobacco Use [...] 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 sertraline (ZOLOFT) 50 mg tablet [Pharmacy Med Name: SERTRALINE HCL 50 MG TABLET] 90 Tablet Sig: TAKE 1 TABLET BY MOUTH EVERY DAY [facility]/pharmacy #[id number] - [address] Confirmed Pharmacy? Yes Patient out of medication? Unknown Last Refill Date: 02/17/22 Refills left? (explain exceptions requiring early refill) No Recent Visits Date Type Provider Dept 02/17/22 Office Visit Emigdio Veronica MD [place] [facility] 02/10/22 Office Visit Darlene Rollins NP [facility] 01/27/22 Office Visit Osmany Matthews MD [facility] 11/25/21 Office Visit Emigdio Veronica MD [facility] 11/11/21 Office Visit Scottie Campuzano PA-C [facility] 10/20/21 Office Visit Emigdio Veronica MD [facility] 10/08/21 Office Visit Emigdio Veronica MD [facility] 09/18/21 Office Visit Scottie Campuzano PA-C [facility] 07/22/21 Office Visit Scottie Campuzano PA-C [facility] 05/14/21 Office Visit Emigdio Veronica MD [facility] Showing recent visits within past 540 days with a meds authorizing provider and meeting all other requirements Future Appointments Date Type Provider Dept 05/20/22 Appointment Nguyen Nolasco NP [facility] 06/11/22 Appointment Emigdio Veronica MD [facility] 07/07/22 Appointment Emigdio Veronica MD [facility] Showing future appointments within next 150 days with a meds authorizing provider and meeting all other requirements Future appointment: Already Scheduled STEVEN BEAN RN 05/17/2022 12:15 documented in this encounter Plan of Treatment Upcoming Encounters Date Type Department Care Team (Late st Contact Info) Description 01/04/2025 13:00 EST Office Visit [facility] Ophthalmology - [address] [phone] Gagandeep Rome MD [address] [place] [address], [facility] 5 [place] [phone] 02/11/2025 13:30 EDT Telemedicine [facility] Hematology & Oncology [address] [phone] Dana Padilla MD [address] [place] [address], [facility] 2 [place] [address] documented as of this encounter [...] documented as of this encounter Care Teams Family Lawyer Relationship Specialty Start Date End Date Emigdio Veronica MD [address] [place] [address] PCP - General Internal Medicine - Primary Care 05/22/20 02/21/24 None, Provider PCP - General 02/24/24 03/18/24 Gabriel Gandara PA PCP - General 03/19/24 09/11/24 Mirna Guerrero PA [address] [place] [address] PCP - General 09/12/24 Starr Paige MD [address] [place] [phone] Hematology 10/08/21 06/09/22 Dana Padilla MD [address] [place] [address] 2 [place] [address] Hematology 01/13/22 06/09/22 Izabella Snowden, [facility] 1 [facility], 3rd [place] [phone] Editor At Large 02/21/23 05/03/24 documented as of this encounter
--- OUTSIDE RECORDS SUMMARY | 2024-11-22 17:04 | XMS_ITS | Encounter Summary ---
Author Organization [facility] Address [address] [place] [address] Care Team Providers Care Electric Clock Mechanic Name Role Phone Emigdio Veronica MD Primary Care Provider + Starr Paige MD Unavailable [phone] Dana Padilla MD Unavailable Reason for Visit * Reason Comments Leg Swelling bilateral LE edema, weight gain, SOB. Both legs edematous, red, warm. Emesis Vomiting several cristino es /day for the last 2 days, unable to keep solid food down. Can sip water. * Auth/Cert Specialty Diagnoses / Procedures Referred By Contac t Referred To Contact Diagnoses Shortness of breath Hypoxemia Respiratory failure with hypoxia ([facility]) Referral ID Status Reason Start Date Expiration Date Visits Re quested Visits Authorized [id number] 1 1 Encounter Details Date Type Department Care Team (Latest Contact Info) Description 05/07/2022 13:12 EDT - 05/07/2022 14:08 EDT Hospital Encounter [facility] Urgent Care - [address] [phone] Dana Fay MD [address] [place] [phone] Bilateral leg edema (Primary Dx); Fever in adult; Cellulitis of lower extremity, unspecified laterality Discharge Disposition: Another Health Care Institution Not Defined Social History Tobacco Use Types Packs/Day Years [...] Job Start Date 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 No / Unsure 05/07/2022 13:34 EDT documented as of this encounter Last Filed Vital Signs Vital Sign Reading Time Taken Comments Blood Pressure 120/60 05/07/2022 1217 EDT Pulse 99 05/07/2022 1217 EDT Temperature 37.9 ??C (100.2 ??F) 05/07/2022 1217 EDT Respiratory Rate 16 05/07/2022 1217 EDT Oxygen Saturation 95% 05/07/2022 1217 EDT Inhaled Oxygen Concentration - - Weight - - Height - - Body Mass Index - - documented in this encounter Functional Status * Are you deaf or do you have serious difficulty hearing? Answer Date of Assessment Author No 05/07/2022 13:34 EDT Me jose antonio Geronimo RN * [...] Answer Entry Date Author No 02/10/2022 18:24 Oitlio Romero RN documented in this encounter Medications at Time of Discharge naloxone (NARCAN) 4 mg/actuation nasal spray 0.1 mL by nasal route as needed for Opioid Reversal. Repeat every 2-3 minutes if not effective and overdose is suspected. (spray is harmless in excess). 1 Each 1 11/11/2021 OXYGEN-AIR DELIVERY SYSTEMS MISCIndications: 2 L @ [...] 1 04/23/2022 2 furosemide (LASIX) 20 mg tablet Take 2 Tablets by mouth daily. 90 Tablet 1 05/11/2022 2 furosemide (LASIX) 20 mg tablet Take 1 Tablet by mouth daily. 90 Tablet 1 02/24/2022 2 levothyroxine (SYNTHROID) 25 mcg tablet Take 1 Tablet by mouth daily before breakfast. 90 Tablet 1 11/11/2021 2 mupirocin (BACTROBAN) 2 % ointment Apply 3 times a day for 1 week for painful sore on lower right leg. 30 g 09/18/2021 2 ondansetron (ZOFRAN) 4 mg tablet Take 1 Tablet by mouth every 8 hours as needed for Nausea. 30 Tablet 1 05/04/2022 2 oxyCODONE (ROXICODONE) 5 mg immediate release tablet Take 1 Tablet by mouth 3 times daily as needed for up to 28 days for Pain. Daily Max: 15 mg 84 Tablet 05/12/2022 2 oxyCODONE (ROXICODONE) 5 mg immediate release tablet Take 1 Tablet by mouth every 8 hours as needed for Pain. Daily Max: 15 mg 2 Tablet 04/13/2022 2 pantoprazole (PROTONIX) 40 mg tablet TAKE 1 TABLET BY MOUTH TWICE A DAY 30 Tablet 3 03/22/2022 2 sertraline (ZOLOFT) 100 mg tablet Take 1 Tablet by mouth daily. 1 Tablet 02/17/2022 2 spironolactone (ALDACTONE) 50 mg tablet Take 1 Tablet by mouth daily. 90 Tablet 1 03/10/2022 2 sucralfate (CARAFATE) 1 gram tablet Take 1 Tablet by mouth 4 times daily. 120 Tablet 3 12/10/2021 2 SYMBICORT 160-4.5 mcg/actuation HFA aerosol inhaler inhalerIndicatio ns:COPD with asthma ([facility]) INHALE 2 PUFFS DIRECTED DAILY 10.2 Each 1 04/14/2022 2 traZODone (DESYREL) 100 mg tablet Take 2 Tablets by mouth at bedtime. 180 Tablet 05/04/2022 2 documented as of this encounter Discharge Disposition Disposition Code Departure Means Destination Another Health Care Institution Not Defined documented in this encounter ED Notes * Dana Fay MD - 05/07/2022 1356 EDT DOS: 05/07/2022 Chief Complaint: Chief Complaint Patient presents with ??? Leg Swelling bilateral LE edema, weight gain, SOB. Both legs edematous, red, warm. ??? Emesis Vomiting several times /day for the last 2 days, unable to keep solid food down. Can sip water. Assessment and Plan 61-year-old female with history of portal vein thrombosis, chronic lower extremity edema, cirrhosis, with bilateral leg swelling redness and warmth tenderness and low-grade fever. Will send to ED viaemergent ambulance. Emigdio in ED triage notified at 1:55 PM Final diagnoses: Bilateral leg edema Fever in adult Cellulitis of lower extremity, unspecified laterality Procedures No results found for this visit on 05/07/22. Radiology orders: None Consult orders: None Imaging Results None EKG 12-LEAD Preliminary Result Wave form only; Final to follow after physician interpretation. Site Test Date: 2022-05-07 Pat Name: TARA BOOTHE Department: [facility] Room: 01 Gender: Female Hourly Manager: : 1960 Requested By: MONIKA CASTELLON Order Number: [id number] Jose PHIPPS: The patient is a 61 y.o. female who presents today with Leg Swelling (bilateral LE edema, weight gain, SOB. Both legs edematous, red, warm. ) and Emesis (Vomiting several times /day for the last 2 days, unable to keep solid food down. Can sip water.) 61-year-old female with multiple medical problems including liver cirrhosis, portal vein thrombosis, COPD, obesity, Complaining of 1 week history of 10 pound weight gain, increased edema of lower extremities and 3-day history of bilateral lower extremity pain redness warmth and low-grade fever. Has chronic dyspneaand wheezing which she says is not worse today. Denies any chest pain. Has chronic pain in her abdomen due to her portal vein thromboses but nothing new or worsening today. She lacks appetite. She has no nausea or vomiting. She has been in contact with her PCP over the past week and had has had herdiuretic medications adjusted. At 1 point she has managed to lose 4 to 5 pounds but she has now gained that back. The history is provided by the patient. Leg Swelling Location: Bilateral legs Severity: Moderate Onset quality: Gradual Duration: 3 days Timing: Constant Progression: Worsening Chronicity: Recurrent Associated symptoms: fever, shortness of breath, vomiting and wheezing Associated symptoms: no abdominal pain, no chest pain and no diarrhea Emesis Associated symptoms: chills and fever Associated symptoms: no abdominal pain and no diarrhea Review of Systems Constitutional: Positive for appetite change, chills and fever. HENT: Negative. Respiratory: Positive for chest tightness, shortness of breath and wheezing. Cardiovascular: Positive for leg swelling. Negative for chest pain. Gastrointestinal: Positive for vomiting. Negative for abdominal pain and diarrhea. Musculoskeletal: Negative. Skin: Positive for color change. Negative for wound. Hematological: Negative. Psychiatric/Behavioral: Negative. No current facility-administered medications for this encounter. [...] furosemide (LASIX) 20 mg tablet Take 1 Tablet by mouth daily. 90 Tablet 1 ??? levothyroxine (SYNTHROID) 25 mcg tablet Take 1 Tablet by mouth daily before breakfast. 90 Tablet 1 ??? mupirocin (BACTROBAN) 2 % ointment Apply 3 times a day for 1 week for painful sore on lower right leg. 30 g 0 ??? naloxone (NARCAN) 4 mg/actuation nasal spray 0.1 mL by nasal route as needed for Opioid Reversal. Repeat every 2-3 minutes if not effective and overdose is suspected. (spray is harmless in excess). 1 Each 1 ??? ondansetron (ZOFRAN) 4 mg tablet Take 1 Tablet by mouth every 8 hours as needed for Nausea. 30 Tablet 1 ??? [START ON 05/12/2022] oxyCODONE (ROXICODONE) 5 mg immediate release tablet [...] 1 ??? sucralfate (CARAFATE) 1 gram tablet Take 1 Tablet by mouth 4 times daily. 120 Tablet 3 ??? SYMBICORT 160-4.5 mcg/actuation HFA aerosol inhaler inhaler INHALE 2 PUFFS DIRECTED DAILY 10.2 Each 1 ??? traZODone (DESYREL) 100 mg tablet Take 2 Tablets by mouth at bedtime. 180 Tablet 0 Facility-Administered Medications Ordered in Other Encounters [...] Active Problem List Diagnosis Date Noted ??? LUQ abdominal pain 02/10/2022 ??? Abdominal [...] ??? COPD (chronic obstructive pulmonary disease) (HCC-CMS) ([facility]) 01/21/2021 ??? Left ureteral stone 12/03/2020 ??? [...] provider: Dr. Ijeoma Smith, GI Department in [facility] for long-standing decompensated liver cirrhosis ??? [...] Pancytopenia (HCC) 07/18/2015 -bone marrow biopsy at [facility] in 2013: maturing trilineage hematopoiesis [...] -01-13-22: EGD NORMAL ([facility]) ??? Thrombocytopenia (HCC-CMS) (HCC) 10/26/2021 Took lusutrombopag 3 mg once [...] 11/10/2020 Added automatically from request for surgery [id number] Past Medical History: Diagnosis Date ??? Anemia [...] Types: Cigarettes Quit date: 08/20/2016 Years since quittin.7 ??? Smokeless tobacco: Never Used ??? Tobacco comment: no cigarette x2 weeks Vaping Use ??? Vaping Use: Never used Substance Use Topics ??? Alcohol use: No ??? Drug use: Not Currently Types: Marijuana Family History Problem Relation Age of Onset [...] Hx ??? Endometrial Cancer Neg Hx BP 120/60 Pulse 99 Temp 100.2 ??F (37.9 ??C) (Temporal) Resp 16 SpO2 95% Physical Exam Vitals and nursing note reviewed. Constitutional: General: She is not in acute distress. Appearance: She is obese. She is not ill-appearing, toxic-appearing or diaphoretic. HENT: Head: Normocephalic and atraumatic. Eyes: Extraocular Movements: Extraocular movements intact. Conjunctiva/sclera: Conjunctivae normal. Pupils: Pupils are equal, round, and reactive to light. Cardiovascular: Rate and Rhythm: Normal rate and regular rhythm. Heart sounds: Normal heart sounds. Pulmonary: Effort: No respiratory distress. Breath sounds: Wheezing present. Abdominal: General: Abdomen is flat. Palpations: Abdomen is soft. Tenderness: There is no abdominal tenderness. Musculoskeletal: General: Swelling and tenderness present. Cervical back: Neck supple. Right lower leg: Edema present. Left lower leg: Edema present. Comments: Bilateral lower extremity pitting edema 2+ below knees, both legs red, warm, tender to palpation. No skin breaks noted on feet. Skin: General: Skin is warm and dry. Neurological: Mental Status: She is alert. Psychiatric: Mood and Affect: Mood normal. Behavior: Behavior normal. PCP: Emigdio Veronica No supervision required. Urgent Care Course A medical screening exam was performed. DISPOSITION: Transfered to Another Facility The patient's pain was managed to an adequate level weighing risk vs. benefit of further medications. Upon departure from [facility], the patient's pain was 4 on a zero to ten scale. Any further pain treatment will be at the discretion of the provider following up with the patient based on their clinical assessment . Condition at departure from the [facility] : Stable MDM 05/07/2022 13:56 * Anastasia Geronimo RN - 05/07/2022 1339 EDT Sitting up on stretcher, reports increased leg swelling, redness and SOB over last week. No fever or dizziness. Hx of CHF on two diuretics. Sent by PCP to r/o infection. EKG already completed. Dr. Fay in to see pt. * Son Valdez MA - 05/07/2022 1330 EDT 12 Lead EKG Performed by SON VALDEZ MA and shown to Dana Fay MD. documented in this encounter Plan of Treatment Upcoming Encounters Date Type Department Care Team (Late st Contact Info) Description 01/04/2025 13:00 EST Office Visit [facility] Ophthalmology - [address] [phone] Gagandeep Rome MD [address] [facility], [address] [place] [phone] 02/11/2025 13:30 EDT Telemedicine [facility] Hematology & Oncology - [address] [phone] Dana Padilla MD [address] [place] [address], [facility] [address] [place] [phone] documented as of this encounter Procedures Procedure Name Priority Date/Time Associated Diagnosis Comments ECG REPORT - SCANNED 07/05/2022 6:01 EDT EKG 12-LEAD STAT 05/07/2022 13:26 EDT documented in this encounter Results * ECG REPORT - SCANNED (07/05/2022 6:01 EDT) 07/05/2022 6:01 EDT us Scan 2 Barrel Rifler PROCEDURE/MINOR SURGICAL OR DERABLES Final Result * EKG 12-LEAD (05/07/2022 13:26 EDT) 05/07/2022 13:2 6 EDT Narrative [facility] EKG - 07/01/2022 20:06 EDT ? PC Site ? Test Date: ?2022-05-07 Pat Name: ? PHYLISS BOOTHE ?[facility] ? Room: ? 01 Gender: ? Female ? Hourly Manager: ?? : ?1960 ? Requested By: MONIKA CASTELLON Order Number: [id number] ? Reading MD: ?? DANA FAY MD ? Measurements Intervals ?[place] ? Rate: ? 86 ? P: ?45 NE: ? 128 ?QRS: ?60 QRSD: ? 102 ?T: ?44 QT: ? 371 ? QTc: ?444 ? Interpretive Statements SINUS RHYTHM POSSIBLE LEFT ATRIAL ENLARGEMENT ??[-0.1mV P-WAVE IN V1/V2] Automated Interpretation. ??Provider Interpretation to follow. Compared to ECG 04/26/2022 22:04:51 Sinus arrhythmia no longer present I reviewed the tracing and have either agreed or edited the findings in this report. Electronically Signed On 07-01-2022 20:06:17 EDT by DANA FAY MD. Procedure Note Dana Fay MD - 07/01/2022 PC Site Test Date: 2022-05-07 Pat Name: TARA BOOTHE Department: [facility] Room: 01 Gender: Female Hourly Manager: : 1960 Requested By: MONIKA MENDOZA Order Number: [id number] Reading MD: DANA FAY MD Measurements Intervals [place] Rate: 86 P: 45 NE: 128 QRS: 60 QRSD: 102 T: 44 QT: 371 QTc: 444 Interpretive Statements SINUS RHYTHM POSSIBLE LEFT ATRIAL ENLARGEMENT [-0.1mV P-WAVE IN V1/V2] Automated Interpretation. Provider Interpretation to follow. Compared to ECG 04/26/2022 22:04:51 Sinus arrhythmia no longer present I reviewed the tracing and have either agreed or edited the findings inthis report. Electronically Signed On 07-01-2022 20:06:17 EDT by DANA PULIDO. us Laurent Orozco MD CARDIAC ECG ORDERABLES F inal Result [facility] EKG documented in this encounter Visit Diagnoses Diagnosis Bilateral leg edema- Primary Edema Fever in adult Fever, unspecified Cellulitis of lower extremity, unspecified laterality documented in this encounter Discontinued Medications Medication Sig Discontinue Reason Start Date End Da te ferrous sulfate 324 mg (65 mg iron) tablet,delayed release (DR/EC) Take 1 Tablet by mouth every 48 hours. Therapy completed 11/11/2021 05/07/2022 documented as of this encounter Care Teams Electric Clock Mechanic Relationship Specialty Start Date End Date Emigdio Veronica MD [address] [place] [phone] PCP - General Internal Medicine - Primary Care 05/22/20 02/21/24 Starr Paige MD [address] [place] [place] [address] Hematology 10/08/21 06/09/22 Dana Padilla MD [address] [facility] [address] [place] [phone] Hematology 01/13/22 06/09/22 documented as of this encounter
--- OUTSIDE RECORDS SUMMARY | 2024-11-22 17:04 | XMS_ITS | Encounter Summary ---
Author Organization [facility] Address [address] [place] [address] Care Team Providers Care Video Tape Transferrer Name Role Phone Emigdio Veronica MD Primary Care Provider + Starr Paige MD Unavailable [phone] Dana Padilla MD Unavailable Reason for Visit * Reason Comments Shortness of Breath BIBEMS from for 2 days of increasing SOB and BLE edema and redness. HX COPD. Noticed recent weight gain. Neg COVID test. Temp 99.7. Wheezing on arrival. * Auth/Cert Specialty Diagnoses / Procedures Referred By Contac t Referred To Contact Diagnoses Shortness of breath Hypoxemia Respiratory failure with hypoxia ([facility]) Referral ID Status Reason Start Date Expiration Date Visits Re quested Visits Authorized [id number] 1 1 Encounter Details Date Type Department Care Team (Late st Contact Info) Description 05/07/2022 14:33 EDT - 05/11/2022 12:17 EDT Hospital Encounter [place] [address] General Medicine Telemetry Unit [address] [place] [address] Javid Tapia MD [address] [place] [phone] Todd Stone MD [facility] [address] [place] [phone] Angela Snyder MD [address] [phone] Dilan Yanez MD [address] [phone] Shortness of breath (Primary Dx); Hypoxemia; Anasarca; Primary hypertension; Acute on chronic heart failure with preserved ejection fraction (HCC-CMS) (HCC); 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 (HCC-CMS) (HCC); Mesenteric vein thrombosis (HCC-CMS) (HCC); Hypothyroidism, unspecified type Discharge Disposition: Home or Self Care [...] 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 No / Unsure 05/07/2022 14:41 EDT documented as of this encounter Last Filed Vital Signs Vital Sign Reading Time Taken Comments Blood Pressure 98/51 05/11/2022 0550 EDT Pulse 77 05/10/2022 1446 EDT Temperature 36.8 ??C (98.2 ??F) 05/11/2022 0550 EDT Respiratory Rate 18 05/11/2022 0550 EDT Oxygen Saturation 95% 05/11/2022 0550 EDT Inhaled Oxygen Concentration - - Weight 108.9 kg (240 lb) 05/07/2022 1440 EDT Height 162.6 cm (5' 4) 05/07/2022 1440 EDT Body Mass Index 41.2 05/07/2022 1440 EDT documented in this encounter Functional Status * Are you deaf or do you have serious difficulty hearing? Answer Date of Assessment Author No 05/08/2022 1:00 EDT Re White RN * Are you blind or do you have serious difficulty seeing, even when wearing glasses? Answer Date of Assessment Author No 05/08/2022 1:00 EDT Re White RN * Do you have serious difficulty walking or climbing stairs? (5 years old or older) Answer Date of Assessment Author No 05/08/2022 1:00 EDT Re White RN * Do you have difficulty dressing or bathing? (5 years old or older) Answer Date of Assessment Author No 05/08/2022 1:00 EDT Re White RN * Because of a physical, mental, or emotional condition, do you have difficulty doing errands alone such as visiting a doctor's office or shopping? (15 years old or older) Answer Date of Assessment Author No 05/08/2022 1:00 EDT Re White RN documented as of this encounter Mental Status * Because of a physical, mental, or emotional condition, do you have serious difficulty concentrating, remembering, or making decisions? (5 years old or older) Answer Entry Date Author No 05/08/2022 1:00 EDT Re White RN documented in this encounter Discharge Summaries * Dilan Yanez MD - 05/11/2022 0700 EDT HOSPITAL MEDICINE DISCHARGE SUMMARY Primary Care Provider: Emigdio Veronica Attending Physician: No att. providers found Admit Date: 05/07/22 Discharge Date: 05/11/22 Disposition (location): Home Condition at Discharge: Improved Reason for Admission (chief complaint): Shortness of breath, lower extremity swelling Principal/Final Diagnosis: Shortness of breath Additional Problems Managed in the Hospital: Active Hospital Problems Diagnosis Date Noted ??? *Shortness of breath 05/08/2022 ??? Hypoxemia 05/08/2022 ??? Respiratory failure with hypoxia ([facility]) ([facility]) 05/07/2022 Resolved Hospital Problems No resolved problems to display. Transition of care: [facility] Transition of Care report automatically routed to PCP office on discharge. Clinical Issues Needing Follow-up 1. Pertinent medication changes: Increased lasix to 40mg daily 2. Recommended follow-up tests/procedures needed: BMP- ordered for 05/18 3. Anticoagulation on discharge: No Recent Labs 05/11/22 0922 INR 1.1 4. 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 She was admitted for IV diuresis??and further w/u of??volume overload. Theetiology of her hypervolemia and dyspnea was unclear. She had mild wheezing on exam, but hadn't hada productive cough so did not suspect copd exacerbation. Her nt pro BNP was normal and her bedside pocus was not suggestive of a HF exacerbation. Given the lack of ascites on exam and no decompensating signs, did not suspect decompensated cirrhosis. Underlying etiology may simply be venous stasis with acute on chronic pain in the setting of multiple prior lower extremity surgeries. Patient had con tinued gradual improvement in symptoms and volume status with IV diuresis. Echo was performed on 05/10/22 which demonstrated EF >65%, no wall motion abnormalities. On 05/11/22, patient was ambulating at baseline, symptoms had improved, patient was tolerating regular diet, having bowel movements and voiding appropriately. Patient was subsequently deemed appropriate for safe discharge home. Relevant Imaging/Procedures Performed: US LOWER VENOUS DUPLEX Result Date: 05/08/2022 1. No evidence of deep venous thrombosis in either lower extremity. 2. Bilateral calf edema. I havepersonally reviewed the images and the above interpretation and agree with the findings. US LIVER/ABDOMEN VISCERAL DOPPLER Result Date: 05/07/2022 1. Thrombus within the main portal vein, splenic vein, and superior mesenteric vein is better assessed on recent CT angiogram. 2. Decreased peak systolic velocity in the right and left portal veins is suggestive of portal venous hypertension. 3. Redemonstrated cirrhotic configuration of the liver with no focal hepatic lesion identified. 4. Redemonstrated splenomegaly. Results Pending at Discharge: Test results still pending from this admission Procedure Component Value Units Date/Time Bacterial Culture, Blood [[id number]] Collected: 05/07/22 1555 Lab Status: In process Specimen: Blood, Venous Updated: 05/07/22 1631 Bacterial Culture, Blood [[id number]] Collected: 05/07/22 1455 Lab Status: In process Specimen: Blood, Venous Updated: 05/07/22 1551 Upcoming Appointments May 21, 2022 13:30 Office Visit with Tatyana Washington NP [facility] Total Joint Program Leslie Diaz (--) [address] [place] [address] May 30, 2022 20:00 Sleep Study with [facility] Polysomnogram [facility] Sleep Program - [facility] (--) [address] [facility] [address] Jun 11, 2022 14:30 Office Visit Medium with Emigdio Veronica MD [facility] [place] Primary [facility] - [place] ([facility]) [address] [facility] [address] Jun 16, 2022 16:30 Follow Up Visit with Arun Rocha MD [facility] Pulmonology & Critical Care - [facility] (--) [address] [facility] [address] Jul 07, 2022 8:45 Office Visit with Emigdio Veronica MD [facility] Primary [facility] [place] ([facility] [place]) [address] [facility] [address] Follow-up appointments and procedures Amb Consult/Follow Up Primary Care Physician - [facility] Reason for Request: hospital follow up Authorizing Provider: Osiris Shaw MD Follow-up labs and tests Basic Metabolic Panel (BMP) Complete by: May 18, 2022 (Approximate) Scheduling Instructions: Blood Test and Fasting How [...] period of time, talk to your physician. Authorizing Provider: Jennifer Mera MD JONATHAN GOUGELET, MD 05/11/2022 12:26 I have interviewed and examined the patient. I have personally reviewed all laboratory and radiographic data as well as applicable prior records. I agree with findings and plan of care as documented by the resident. Time spent in discharge coordination: 35 min. Additions/changes in blue italics. Dilan Yanez MD documented in this encounter Medications at Time [...] mouth daily. 90 Tablet 1 05/11/2022 2 levothyroxine (SYNTHROID) 25 mcg tablet Take [...] 4 SYMBICORT 160-4.5 mcg/actuation HFA aerosol inhaler inhalerIndicatio ns:COPD with asthma ([facility]) INHALE 2 PUFFS DIRECTED DAILY 10.2 Each 1 04/14/2022 2 traZODone (DESYREL) 100 mg tablet Take 2 Tablets by mouth at bedtime. 180 Tablet 05/04/2022 2 documented as of this encounter Ordered Prescriptions Prescription Sig Dispense Quantity Refills Last Filled Start Date End Date furosemide (LASIX) 20 mg tablet Take 2 Tablets by mouth daily. 90 Tablet 1 05/11/2022 2 documented in this encounter Discharge Disposition Disposition Code Departure Means Destination Home or Self Retirement documented in this encounter Progress Notes * Mounika Aldana, RN - 05/11/2022 1213 EDT Nursing Discharge Note D: Patient noted with discharge orders to: Home. A: Prescriptions e-scripted. Reviewed discharge instructions and prescriptions with Patient IV d/c'd. Belongings collected and sent home with patient. R: Family verbalized understanding of discharge instructions and denied further questions. MOUNIKA ALDANA RN 05/11/2022 12:14 * Lang Burns RN - 05/10/2022 1740 EDT Data: Assumed care of patient at 15:33. A/Ox3 w/ VSS on RA. Endorsing BLE pain 8-9/10. TEDs in place. Action: Pt refusing sucralfate, PRN pain meds given for management of pain see eMAR. TTE today, awaiting results. Encouraging pt to elevate BLE. Care clustered. Hourly rounding. Response: Patient expressing interest in TTE results. Pt making progress towards d/c goal of home when medically cleared. LANG BURNS RN 05/10/2022 17:40 * Dilan Yanez MD - 05/10/2022 1146 EDT Medicine Progress Note Service Date: 05/10/2022 Admit Date: 05/07/2022 14:33 Reason for Admission: 61 y.o. female admitted with a chief complaint of Dyspnea and now with a principal diagnosis of dyspnea. 24 Hour Events: -NAEO Subjective/Objective Subjective Patient reports that she had a rough night, which she attributed to not sleeping. Patient reports that she had some chills, however no fevers. Patient denies any chest pain, however notes that she had some shortness of breath, which is fairly stable for her. Patient denies any nausea or vomiting. Patient continues to report pain in her lower extremities particularly left. Patient denies any urinary or bowel complaints this morning. Patient tolerating regular diet. Patient has no other acute complaints this morning. I asked when her breathing last felt good, and she said it was around September. Her weight was ~180lbs at that time and she tells me she then went on to gain ~60 lb. Review of Systems A ten point review of systems was performed and was negative except for pertinent positives noted in the HPI Objective Vital Signs: Temp: [36.5 ??C (97.7 ??F)-36.6 ??C (97.9 ??F)] , Heart Rate: [77 BPM] , Resp: [12-18] , BP: (90-113)/(51-54) , SpO2: [93 %-96 %] Physical Exam: General: Alert, sitting in bed, no acute distress. Skin: no rashes/lesions noted. Scattered spider hemangioma on superior aspect of chest. CV: Normal rate, regular rhythm, no murmurs rubs or gallops appreciated. Resp: expiratory wheezing heard in all posterior lung godwin, non labored breathing on room air GI: soft, non-tender, non-distended. : no camacho present Extr: tense edema and erythema to mid calf bilaterally, stockings in place, improved edema from prior exam. Neuro: alert, oriented to conversation Psych: cooperative, answers questions appropriately Labs CBC: Recent Labs 05/07/22 1455 05/08/22 1001 05/09/22 0905/10/22 1108 WBC 8.05 6.94 4.85 4.60 RBC 3.79* 4.05 3.66* 3.62* HGB 11.0* 11.3* 10.8* 10.2* HCT 33.4* 35.2 32.9* 31.8* MCV 88 87 90 88 MCH 29.0 27.9 29.5 28.2 MCHC 32.9 32.1 32.8 32.1 PLT 101* 113* 110* 112* NEUTROABS 6.72 -- -- -- BMP: Recent Labs 05/07/22 1455 05/08/22 1001 05/08/22 17505/09/22 0923 05/09/22 2030 NA 135* 134* 135* 138 137 K 3.5 3.6 3.3* 4.1 4.4 CL 97 94* 96 98 100 CO2 31 30 28 30 29 BUN 16 22 -- 19 23 CREATININE 1.15* 1.07* -- 1.08* 1.13* CALCIUM 8.5 8.6 -- 8.4* 9.0 MG 1.8 -- -- -- 1.9 LABALBU 4.1 4.1 -- 3.8 -- Coags: Recent Labs 05/07/22 1455 05/08/22 1001 05/09/22 0923 05/10/22 1109 PROTIME 13.7* 12.9* 12.2 12.4 INR 1.2* 1.1 1.1 1.1 PTT 32 -- -- -- LFT: Recent Labs 05/07/22 1455 05/08/22 1001 05/09/22 0923 TBIL 1.7* 1.1 0.6 ALKPHOS 119 110 136* AST 32 27 25 ALT 22 20 19 Cardiac Markers: Recent Labs 05/07/22 1455 05/09/22 0923 CK -- 90 TROPONINI <0.034 -- MELD-Na score: 8 at 05/10/2022 11:09 MELD score: 8 at 05/10/2022 11:09 Calculated from: Serum Creatinine: 1.13 mg/dL at 05/09/2022 20:30 Serum Sodium: 137 mmol/L at 05/09/2022 20:30 Total Bilirubin: 0.6 mg/dL (Using min of 1 mg/dL) at 05/09/2022 9:23 INR(ratio): 1.1 Ratio at 05/10/2022 11:09 Age: [address] ANGIO ABDOMEN PELVIS Result Date: 04/23/2022 1. No acute abnormality in the abdomen or pelvis. No evidence of occlusion or vascular malformationof the major arterial vasculature of the abdomen and pelvis. 2. Extensive portal and splenic venousthrombosis is again seen and is not significantly changed. 3. Unchanged splenic artery aneurysm. 4.Additional chronic and incidental findings as detailed above. I have personally reviewed the imagesand the above interpretation and agree with the findings. CT ANGIO CHEST PE PROTOCOL Result Date: 04/23/2022 1. No pulmonary emboli. Suboptimal evaluation of subsegmental regions of the lower lobes due to respiratory artifact. 2. Mild hydrostatic edema within the lungs. I have personally reviewed the imagesand the above interpretation and agree with the findings. XR CHEST PORTABLE 1 VIEW Result Date: 05/07/2022 Possible pulmonary edema I have personally reviewed the images and the above interpretation and agree with the findings. XR CHEST PORTABLE 1 VIEW Result Date: 04/27/2022 Possible mild interstitial pulmonary edema. Lower lung volumes and the larger patient I have personally reviewed the images and the above interpretation and agree with the findings. US LOWER VENOUS DUPLEX Result Date: 05/08/2022 1. No evidence of deep venous thrombosis in either lower extremity. 2. Bilateral calf edema. I havepersonally reviewed the images and the above interpretation and agree with the findings. US LIVER/ABDOMEN VISCERAL DOPPLER Result Date: 05/07/2022 1. Thrombus within the main portal vein, splenic vein, and superior mesenteric vein is better assessed on recent CT angiogram. 2. Decreased peak systolic velocity in the right and left portal veins is suggestive of portal venous hypertension. 3. Redemonstrated cirrhotic configuration of the liver with no focal hepatic lesion identified. 4. Redemonstrated splenomegaly. Assessment/Plan Assessment Tara Yun is a 61 y.o. female with a medical history of cirrhosis due to NAFLD (with extensive portal vein thrombosis, splenic vein thrombosis with infarct, superior mesenteric vein thrombosis and small esophageal varices), HFpEF, COPD, GI bleed secondary to duodenal ulcer, hypothyroidism, CKD, HUEY, GERD, chronic hypoxic respiratory failure on nocturrnal O2, and anxiety presenting with anasarca and dyspnea. She is admitted for IV diuresis and further w/u of volume overload. The etiology of her hypervolemia and dyspnea remains unclear. She is not especially wheezy on exam, hasn't had a productive cough so don't suspect copd exacerbation. Her nt pro BNP was normal and her bedside pocus was not suggestive of a HF exacerbation. Given the lack of ascites on exam and no decompensating signs, don't suspect decompensated cirrhosis. Underlying etiology may simply be venous stasis with acute on chronic pain in the setting of multiple prior lower extremity surgeries. Suspect that patient is approaching medical readiness for discharge in the coming 24 hours, pending further diuresis and TTE. Plan Hypervolemia, dyspnea - unclear etiology: Reports that she is up 12-13 lbs in the last week or so. Pulmonary edema on CXR, notable pitting edema in legs bilaterally. Last echo 10/2021 - nml EF and mild LVH. NT BNP was normal in the ED. Etiology is not completely clear given normal NT pro BNP. Reports adherence with outpatient diuretics. Bedside Pocus revealed scattered B lines throughout lungs, however no ascites. Patient approaching euvolemia, will restart RECHECKER lasix this am - s/p multiple days of IV diuresis - restart RECHECKER lasix (20mg daily). - patient states this was reduced from 40mg due to kidney problems - c/w RECHECKER spironolactone 50 mg - reduced from 100mg for same reason - Trend electrolytes and replete K to > 4 and mg to > 2 - follow BUN/Cr daily - strict I/Os - fluid restriction - f/u TTE - elevate lower extremities and wear compression stockings Cirrhosis secondary to NAFLD (likely stage 2 compensated cirrhosis as she has small varices on EGD but no ascites): MELD on admission was 14, improved to 8 today, 05/09. No ascites on point of care ultrasound. machine captain diuretics: 20 po lasix and 50 spironolactone. - s/p aggressive IV diuresis on 05/08 (60 and 40 IV lasix); 40 IV lasix 05/09 - Outpatient follow-up with GI - Daily MELD Lower extremity pain and spasms likely due to venous stasis -possibly secondary to restless leg syndrome in setting of possible iron deficiency as patient is slightly anemic. Iron studies are remarkable for very low iron saturation, normal ferritin. -Continue to replete electrolytes as needed particularly in setting of diuresis. -Methocarbamol/robaxin TID for muscle spasms -Continue to elevate lower extremities and wear compression stockings ?? Lumbago-continues to have lower back spasms. -Continue increased oxycodone at 7.5 mg TID prn as needed from her machine captain 5 mg TID, can likely d/c on RECHECKER dose -continue robaxin 500mg TID PRN (will not d/c with this given RECHECKER chloroxazone) COPD: Also contributing to dyspnea. S/p prednisone and duoneb in ED. Continues to have some wheezing this morning, no obvious signs or symptoms concerning for acute COPD exacerbation. - RECHECKER Symbicort - Duonebs PRN - hold further prednisone ?? Portal, Splenic, Mesenteric Venous Thromboses: Followed by Dr. Padilla. Had been on Lovenox and Eliquis at various times however stopped due to acute bleeding. Clots stable over past 3 months. Plt currently 101. LE Duplex U/S 02/2022 showed no DVT. - Outpatient follow-up ?? Hypothyroidism: - RECHECKER levothyroxine 25 mcg ?? Chronic Pain Syndrome: - RECHECKER oxycodone?? GERD: - RECHECKER sucralfate, pantoprazole ?? Anxiety: - RECHECKER Zoloft 100mg - RECHECKER trazadone ?? VTE Prophylaxis: Seqential Compression Device Code: No Active Order Discharge Plan: Pending clinical course Consults: None JENNIFER MERA MD PGY-1 05/10/2022 11:46 I have interviewed and examined the patient on 05/10/22. I have personally reviewed all laboratory and radiographic data as well as applicable prior records. I agree with findings and plan of care as documented by the resident. Additions/changes in blue italics. Dilan Yanez MD * Lul Snyder-Tayler Ordaz MD - 05/09/2022 4224 EDT Medicine Progress Note Service Date: 05/09/2022 Admit Date: 05/07/2022 14:33 Reason for Admission: 61 y.o. female admitted with a chief complaint of Dyspnea and now with a principal diagnosis of dyspnea. 24 Hour Events: -NAEO Subjective/Objective Subjective Patient reports that she continues to have significant leg swelling with associated spasms bilaterally - states that pain is worse on the left than on the right. Patient denies any chest pain, nausea, vomiting. Patient is tolerating diet. Patient additionally notes that she has significant lower back pain. Review of Systems A ten point review of systems was performed and was negative except for pertinent positives noted in the HPI Objective Vital Signs: Temp: [36.6 ??C (97.9 ??F)-36.9 ??C (98.5 ??F)] , Heart Rate: [70 BPM-82 BPM] , Resp: [18] , BP: (98-126)/(53-59) , SpO2: [93 %-96 %] Physical Exam: General: Alert, standing in room, no acute distress Skin: no rashes/lesions noted. Scattered spider hemangioma on superior aspect of chest. CV: Normal rate, regular rhythm. Resp: expiratory wheezing heard in all posterior lung godwin, non labored breathing on room air. Minimal scattered B lines and No pleural effusions on 04/07 pocus. GI: soft, non-tender, non-distended. No ascites noted on POCUS : no camacho present Extr: tense edema and erythema to mid calf bilaterally Neuro: alert, oriented x3 Psych: cooperative, answers questions appropriately Labs CBC: Recent Labs 05/07/22 1455 05/08/22 1001 05/09/22 0923 WBC 8.05 6.94 4.85 RBC 3.79* 4.05 3.66* HGB 11.0* 11.3* 10.8* HCT 33.4* 35.2 32.9* MCV 88 87 90 MCH 29.0 27.9 29.5 MCHC 32.9 32.1 32.8 PLT 101* 113* 110* NEUTROABS 6.72 -- -- BMP: Recent Labs 05/07/22 1455 05/08/22 1001 05/08/22 1751 05/09/22 0923 NA 135* 134* 135* 138 K 3.5 3.6 3.3* 4.1 CL 97 94* 96 98 CO2 31 30 28 30 BUN 16 22 -- 19 CREATININE 1.15* 1.07* -- 1.08* CALCIUM 8.5 8.6 -- 8.4* MG 1.8 -- -- -- LABALBU 4.1 4.1 -- 3.8 Coags: Recent Labs 05/07/22 1455 05/08/22 1001 05/09/22 0923 PROTIME 13.7* 12.9* 12.2 INR 1.2* 1.1 1.1 PTT 32 -- -- LFT: Recent Labs 05/07/22 1455 05/08/22 1001 05/09/22 0923 TBIL 1.7* 1.1 0.6 ALKPHOS 119 110 136* AST 32 27 25 ALT 22 20 19 Cardiac Markers: Recent Labs 05/07/22 1455 05/09/22 0923 CK -- 90 TROPONINI <0.034 -- MELD-Na score: 8 at 05/09/2022 9:23 MELD score: 8 at 05/09/2022 9:23 Calculated from: Serum Creatinine: 1.08 mg/dL at 05/09/2022 9:23 Serum Sodium: 138 mmol/L (Using max of 137 mmol/L) at 05/09/2022 9:23 Total Bilirubin: 0.6 mg/dL (Using min of 1 mg/dL) at 05/09/2022 9:23 INR(ratio): 1.1 Ratio at 05/09/2022 9:23 Age: [address] ANGIO ABDOMEN PELVIS Result Date: 04/23/2022 1. No acute abnormality in the abdomen or pelvis. No evidence of occlusion or vascular malformationof the major arterial vasculature of the abdomen and pelvis. 2. Extensive portal and splenic venousthrombosis is again seen and is not significantly changed. 3. Unchanged splenic artery aneurysm. 4.Additional chronic and incidental findings as detailed above. I have personally reviewed the imagesand the above interpretation and agree with the findings. CT ANGIO CHEST PE PROTOCOL Result Date: 04/23/2022 1. No pulmonary emboli. Suboptimal evaluation of subsegmental regions of the lower lobes due to respiratory artifact. 2. Mild hydrostatic edema within the lungs. I have personally reviewed the imagesand the above interpretation and agree with the findings. XR CHEST PORTABLE 1 VIEW Result Date: 05/07/2022 Possible pulmonary edema I have personally reviewed the images and the above interpretation and agree with the findings. XR CHEST PORTABLE 1 VIEW Result Date: 04/27/2022 Possible mild interstitial pulmonary edema. Lower lung volumes and the larger patient I have personally reviewed the images and the above interpretation and agree with the findings. US LOWER VENOUS DUPLEX Result Date: 05/08/2022 1. No evidence of deep venous thrombosis in either lower extremity. 2. Bilateral calf edema. I havepersonally reviewed the images and the above interpretation and agree with the findings. US LIVER/ABDOMEN VISCERAL DOPPLER Result Date: 05/07/2022 1. Thrombus within the main portal vein, splenic vein, and superior mesenteric vein is better assessed on recent CT angiogram. 2. Decreased peak systolic velocity in the right and left portal veins is suggestive of portal venous hypertension. 3. Redemonstrated cirrhotic configuration of the liver with no focal hepatic lesion identified. 4. Redemonstrated splenomegaly. Assessment/Plan Assessment Tara Yun is a 61 y.o. female with a medical history of cirrhosis due to NAFLD (with extensive portal vein thrombosis, splenic vein thrombosis with infarct, superior mesenteric vein thrombosis and small esophageal varices), HFpEF, COPD, GI bleed secondary to duodenal ulcer, hypothyroidism, CKD, HUEY, GERD, chronic hypoxic respiratory failure on nocturrnal O2, and anxiety presenting with anasarca and dyspnea. She is admitted for IV diuresis and further w/u of volume overload. The etiology of her hypervolemia and dyspnea remains unclear. She is not especially wheezy on exam, hasn't had a productive cough so don't suspect copd exacerbation. Her nt pro BNP was normal and her bedside pocus was not suggestive of a HF exacerbation. Given the lack of ascites on exam and no decompensating signs, don't suspect decompensated cirrhosis. Underlying etiology may simply be venous stasis with acute on chronic pain in the setting of multiple prior lower extremity surgeries. 05/09 orders: gave lasix 40 x1; increased machine captain oxycodone from 5 mg to 7.5 mg TID, nursing communication to elevate lower extremities and use compression stockings Plan Hypervolemia, dyspnea - unclear etiology: Reports that she is up 12-13 lbs in the last week or so. Pulmonary edema on CXR, notable pitting edema in legs bilaterally. Last echo 10/2021 - nml EF and mild LVH. NT BNP was normal in the ED. Etiology is not completely clear given normal NT pro BNP. Reports adherence with outpatient diuretics. Bedside Pocus revealed scattered B lines throughout lungs, however no ascites. - lasix 60mg IV 05/08 AM and 40mg IV 05/08 afternoon - plan for 40 IV lasix 05/09 - c/w RECHECKER spironolactone 50 mg - Trend electrolytes and replete K to > 4 and mg to > 2 - follow BUN/Cr daily - goal net -1 to 2L on 05/09 - strict I/Os - fluid restriction - f/u TTE - elevate lower extremities and wear compression stockings Cirrhosis secondary to NAFLD (likely stage 2 compensated cirrhosis as she has small varices on EGD but no ascites): MELD on admission was 14, improved to 8 today, 05/09. No ascites on point of care ultrasound. machine captain diuretics: 20 po lasix and 50 spironolactone. - s/p aggressive IV diuresis on 05/08 (60 and 40 IV lasix); plan for 40 IV lasix 05/09 - Outpatient follow-up with GI - Daily MELD Lower extremity pain and spasms likely due to venous stasis -possibly secondary to restless leg syndrome in setting of possible iron deficiency as patient is slightly anemic. Iron studies are remarkable for very low iron saturation, awaiting ferritin. -Continue to replete electrolytes as needed particularly in setting of diuresis. -Methocarbamol/robaxin TID for muscle spasms -Elevate lower extremities and wear compression stockings ?? Lumbago-continues to have lower back spasms. -05/09: increased her oxycodone to 7.5 mg TID prn as needed from her machine captain 5 mg TID -continue robaxin 500mg TID PRN (will not d/c with this given RECHECKER chloroxazone) COPD: Also contributing to dyspnea. S/p prednisone and duoneb in ED. Continues to have some wheezing this morning, no obvious signs or symptoms concerning for acute COPD exacerbation. - RECHECKER Symbicort - Duonebs PRN - hold further prednisone ?? Portal, Splenic, Mesenteric Venous Thromboses: Followed by Dr. Padilla. Had been on Lovenox and Eliquis at various times however stopped due to acute bleeding. Clots stable over past 3 months. Plt currently 101. LE Duplex U/S 02/2022 showed no DVT. - Outpatient follow-up ?? Hypothyroidism: - RECHECKER levothyroxine 25 mcg ?? Chronic Pain Syndrome: - RECHECKER oxycodone, ?? GERD: - RECHECKER sucralfate, pantoprazole ?? Anxiety: - RECHECKER Zoloft 100mg - RECHECKER trazadone ?? VTE Prophylaxis: Seqential Compression Device Code: No Active Order Discharge Plan: Pending clinical course Consults: None OSIRIS SHAW MD IM, PGY2 05/09/2022 17:36 Attending Attestation I interviewed and examined the patient and personally reviewed laboratory studies and medical records. I discussed the case with the Medicine residents and agree with history, exam, assessment and plan of care as documented in the note above (with edits in Green). Aim for diuresis of -1L per day, while monitoring renal function closely. Patient appears overall hypervolemic but LE may simply due to venous stasis with risk of intravascular volume depletion with excessive diuresis. Follow up TTE tomorrow. Dr Dilan Yanez to assume care of patient tomorrow. Angela Snyder MD Internal Medicine Hospitalist * Angela Snyder MD - 05/08/2022 0814 EDT Medicine Progress Note Service Date: 05/08/2022 Admit Date: 05/07/2022 14:33 Reason for Admission: 61 y.o. female admitted with a chief complaint of Dyspnea and now with a principal diagnosis of dyspnea. 24 Hour Events: -Admitted Subjective/Objective Subjective Patient reports that she continues to have significant leg swelling with associated spasms bilaterally. Patient continues to note some dyspnea. Patient denies any chest pain, nausea, vomiting. Patient is tolerating diet. Patient additionally notes that she has significant lower back pain for which she usually takes oxycodone TID Review of Systems A ten point review of systems was performed and was negative except for pertinent positives noted in the HPI Objective Vital Signs Temp: [36.4 ??C (97.6 ??F)-37.9 ??C (100.2 ??F)] , Heart Rate: [72 BPM-100 BPM] , Resp: [12-20] , BP: (103-144)/(52-90) , SpO2: [91 %-97 %] Physical Exam General: Alert, standing in room, no acute distress Skin: no rashes/lesions noted. Scattered spider hemangioma CV: Normal rate, regular rhythm. Resp: expiratory wheezing heard in all posterior lung godwin, non labored breathing on room air. Minimal scattered B lines on POCUS. No pleural effusions. GI: soft, non-tender, non-distended. No ascites noted on POCUS : no camacho present Extr: tense edema and erythema to mid calf bilaterally Neuro: alert, oriented x3 Psych: cooperative, answers questions appropriately Labs CBC: Recent Labs 05/07/22 1455 05/08/22 1001 WBC 8.05 6.94 RBC 3.79* 4.05 HGB 11.0* 11.3* HCT 33.4* 35.2 MCV 88 87 MCH 29.0 27.9 MCHC 32.9 32.1 PLT 101* 113* NEUTROABS 6.72 -- BMP: Recent Labs 05/07/22 1455 05/08/22 1001 NA 135* 134* K 3.5 3.6 CL 97 94* CO2 31 30 BUN 16 22 CREATININE 1.15* 1.07* CALCIUM 8.5 8.6 MG 1.8 -- LABALBU 4.1 4.1 Coags: Recent Labs 05/07/22 1455 05/08/22 1001 PROTIME 13.7* 12.9* INR 1.2* 1.1 PTT 32 -- LFT: Recent Labs 05/07/22 1455 05/08/22 1001 TBIL 1.7* 1.1 ALKPHOS 119 110 AST 32 27 ALT 22 20 Cardiac Markers: Recent Labs 05/07/22 1455 TROPONINI <0.034 MELD-Na score: 9 at 05/08/2022 10:01 MELD score: 9 at 05/08/2022 10:01 Calculated from: Serum Creatinine: 1.07 mg/dL at 05/08/2022 10:01 Serum Sodium: 134 mmol/L at 05/08/2022 10:01 Total Bilirubin: 1.1 mg/dL at 05/08/2022 10:01 INR(ratio): 1.1 Ratio at 05/08/2022 10:01 Age: [address] ANGIO ABDOMEN PELVIS Result Date: 04/23/2022 1. No acute abnormality in the abdomen or pelvis. No evidence of occlusion or vascular malformationof the major arterial vasculature of the abdomen and pelvis. 2. Extensive portal and splenic venousthrombosis is again seen and is not significantly changed. 3. Unchanged splenic artery aneurysm. 4.Additional chronic and incidental findings as detailed above. I have personally reviewed the imagesand the above interpretation and agree with the findings. CT ANGIO CHEST PE PROTOCOL Result Date: 04/23/2022 1. No pulmonary emboli. Suboptimal evaluation of subsegmental regions of the lower lobes due to respiratory artifact. 2. Mild hydrostatic edema within the lungs. I have personally reviewed the imagesand the above interpretation and agree with the findings. XR CHEST PORTABLE 1 VIEW Result Date: 05/07/2022 Possible pulmonary edema I have personally reviewed the images and the above interpretation and agree with the findings. XR CHEST PORTABLE 1 VIEW Result Date: 04/27/2022 Possible mild interstitial pulmonary edema. Lower lung volumes and the larger patient I have personally reviewed the images and the above interpretation and agree with the findings. US LIVER/ABDOMEN VISCERAL DOPPLER Result Date: 05/07/2022 1. Thrombus within the main portal vein, splenic vein, and superior mesenteric vein is better assessed on recent CT angiogram. 2. Decreased peak systolic velocity in the right and left portal veins is suggestive of portal venous hypertension. 3. Redemonstrated cirrhotic configuration of the liver with no focal hepatic lesion identified. 4. Redemonstrated splenomegaly. Assessment/Plan Assessment Tara Yun is a 61 y.o. 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 She is admitted for IV diuresis and further w/u of volume overload. Will continue to diurese today. Plan Hypervolemia, dyspnea: Reports that she is up 12-13 lbs in the last week or so. Pulmonary edema on CXR, notable pitting edema in legs bilaterally. S/p lasix 40mg IV in ED. Last echo 10/2021 - nml EF and mild LVH. NT BNP was normal in the ED. Etiology is not completely clear given normal NT pro BNP.Reports adherence with outpatient diuretics. Bedside Pocus revealed scattered B lines throughout lungs, however no ascites. - redosed lasix 60mg IV 05/08 AM - will redose 40mg IV this afternoon - RECHECKER spironolactone - goal net -2L - strict I/Os - fluid restriction - f/u TTE - elevate LE ?? Decompensated cirrhosis secondary to NAFLD: MELD on admission was 14, down to 9 today. No ascites on point of care ultrasound - Continue diuretics as above - Outpatient follow-up with GI - Daily MELD ?? Lumbago-continues to have lower back spasms. -continue oxycodone 5 mg 3 times daily as needed -continue robaxin 500mg TID PRN Lower extremity spasms-possibly secondary to restless leg syndrome in setting of possible iron deficiency as patient is slightly anemic. Iron studies unremarkable. -Continue to replete electrolytes as needed particularly in setting of diuresis. COPD: Also contributing to dyspnea. S/p prednisone and duoneb in ED. Continues to have some wheezing this morning, no obvious signs or symptoms concerning for acute COPD exacerbation. - RECHECKER Symbicort - Duonebs PRN - hold further prednisone ?? Portal, Splenic, Mesenteric Venous Thromboses: Followed by Dr. Padilla. Had been on Lovenox and Eliquis at various times however stopped due to acute bleeding. Clots stable over past 3 months. Plt currently 101. LE Duplex U/S 02/2022 showed no DVT. - Outpatient follow-up ?? Hypothyroidism: - RECHECKER levothyroxine 25 mcg ?? Chronic Pain Syndrome: - RECHECKER oxycodone, chloroxazone ?? GERD: - RECHECKER sucralfate, pantoprazole ?? Anxiety: - RECHECKER Zoloft 100mg - RECHECKER trazadone ?? VTE Prophylaxis Seqential Compression Device ?? Code: No Active Order Discharge Plan Pending clinical course ?? Consults None JENNIFER MERA MD 05/08/2022 8:14 Attending Attestation I interviewed and examined the patient and personally reviewed laboratory studies, imaging studies,and medical records. I discussed the case with the Medicine residents and agree with history, exam,assessment and plan of care as documented in the note above (with edits in Green). Angela Snyder MD Internal Medicine Hospitalist * Kathleen East, RT - 05/07/20222008 EDT Respiratory Consult/Progress Note Indications for Respiratory therapy: ED Consult, Hx COPD Data Vitals: Heart Rate: 85 BPM, Resp: 14, SpO2: 94 % FIO2/O2 Device: O2 Flow Rate (L/min): 2.5 l/min, , O2 Device: Nasal cannula, RT Orders: Protocol Scoring: Bronchodilator/Inhalation Therapy Frequency Bronchodilator - Clinical Indications: History of COPD Breath Sounds: Faint wheezing, decreased throughout Response: No change / no treatment Pulse: <100 Resp Rate: 18-25 SOB: With exertion Total Score: 4 Comment:: prn at home Frequency Based On Total Score: [...] Hyperinflation Therapy Frequency Hyperinflation - Clinical Indications: Prevent atelectasis Breath Sounds: Other Surgery: No X-Ray / Atelectasis: No O2 Requirements: O2 at baseline Mobility Status: Mobile / at baseline Total: 1 Comment: prn Frequency Based On Total Score: 0-3 = PRN 4-6 = QID and PRN 7-9 = Q4H and PRN 10-12 = Q2H and PRN Action/Events Respiratory events; Patient has history of COPD, HUEY and is on 2-3 L baseline at home. BBS diminished with slight wheeze, no work of breathing at this time, no congestion, on 2.5 L. Home meds- BID Symbicort and PRN Albuterol MDI. Independent with MDI's. Sleep study is scheduled for next month, has not used CPAP yet. RT ANTON 05/07/22 * Lenore Eubanks - 05/07/2022 1452 EDT (R/O COVID) [facility]ALL: [facility] pt to e[facility]d for eval. CC: Dyspnea, wheezing, febrile 100.2, 10-15 lb weight gain, both legs red, swollen. Hx: Cirrhosis, COPD, leg edema. (GMD) documented in this encounter H&P Notes * Nati Meng MD - 05/07/2022 1940 EDT Hospital Medicine Admission History & Physical Service Date: 05/07/2022 Admit Date: N/A Primary Care Provider: Emigdio Veronica Chief Complaint: Hypervolemia HPI Tara Yun is a 61 y.o. female with a medical history of cirrhosis secondary to NAFLD (with portal vein thrombosis and small esophageal varices), HFpEF, COPD, GI bleed secondary to duodenal ulcer, hypothyroidism, CKD, HUEY, GERD, and anxiety presenting with anasarca and dyspnea. She reports that she started feeling worse about a week ago. She noticed worse swelling in her legsthat is now tense and painful. She also notes worsening shortness of breath, leading her to wear her home NC all day instead of just at night. She has also had nausea during this time. She has gainedabout 12-13 lb in the past week. She denies any sick contacts or recent illness. She also denies change in diet or medication, has been adherent with her outpatient diuretic regimen. In the ED, she received duoneb, lasix 40mg IV, Zofran 4mg IV, prednisone 40mg PO, oxycodone 5mg PO,and Keflex 500mg PO. VS significant for 91-95% on RA but put on 2.5L NC for dyspnea. Labs significant for Hgb 11, plt 101, Na 135, Cr 1.15, total bilirubin 1.7. Imaging notable for venous thromboses in portal, superior mesenteric, and splenic veins as seen on abdominal US and pulmonary edema on CXR. When talking with the medicine team, she mentions that her legs are bothering her the most. She also feels short of breath and nauseous still. She denies any chest pain or new abdominal pain. Gena lives independently in [place] with two roommates. She would like her son to be her medical proxy if she is unable to make independent decisions. Review of Systems A complete 10 point ROS was performed and pertinent positive and negative findings listed in HPI, otherwise negative. Past Medical History: Diagnosis Date ??? Anemia ??? Anxiety ??? Asthma 12/10/2020 currently not taking - mild persistent - see dr. Veronica 11/20/2021; 01/11/22- uses rescue inhaler twice daily ??? Blood clotting disorder ([facility]) ([facility]) blood clot in place- spleenic vein; per pt ??? Bursitis right shoulder ??? C. difficile colitis 07/25/2015 Hospitalized after kidney stone removal ??? Chronic kidney disease ??? Cirrhosis of liver ([facility]) ([facility]) ??? Community acquired pneumonia january 2021 ??? COPD exacerbation ([facility]) ([facility]) 04/26/2020 ??? Depression ??? Drug-seeking [...] times daily as needed for Muscle Spasms. ??? furosemide (LASIX) 20 mg tablet Take 1 Tablet by mouth daily. ??? levothyroxine (SYNTHROID) 25 mcg tablet Take 1 Tablet by mouth daily before breakfast. ??? mupirocin (BACTROBAN) 2 % ointment Apply 3 times a day for 1 week for painful sore on lower right leg. ??? naloxone (NARCAN) 4 mg/actuation nasal spray 0.1 mL by nasal route as needed for Opioid Reversal. Repeat every 2-3 minutes if not effective and overdose is suspected. (spray is harmless in excess). ??? ondansetron (ZOFRAN) 4 mg tablet Take 1 Tablet by mouth every 8 hours as needed for Nausea. ??? [START ON 05/12/2022] oxyCODONE (ROXICODONE) 5 mg immediate release tablet Take 1 Tablet by mouth 3 times daily as needed for up to 28 days for Pain. Daily Max: 15 mg ??? oxyCODONE (ROXICODONE) 5 mg immediate release tablet Take 1 Tablet by mouth every 8 hours as needed for Pain. Daily Max: 15 mg ??? OXYGEN-AIR DELIVERY SYSTEMS MISC 2 L by misc (non-drug; combo route) route at bedtime. ??? pantoprazole (PROTONIX) 40 mg tablet TAKE 1 TABLET BY MOUTH TWICE A DAY ??? sertraline (ZOLOFT) 100 mg tablet Take 1 Tablet by mouth daily. ??? spironolactone (ALDACTONE) 50 mg tablet Take 1 Tablet by mouth daily. ??? sucralfate (CARAFATE) 1 gram tablet Take 1 Tablet by mouth 4 times daily. ??? SYMBICORT 160-4.5 mcg/actuation HFA aerosol inhaler inhaler INHALE 2 PUFFS DIRECTED DAILY ??? traZODone (DESYREL) 100 mg tablet Take 2 Tablets by mouth at bedtime. Allergies Allergen Reactions ??? Metoclopramide Nausea Only, [...] Reglan [Metoclopramide Hcl] Rash Objective Vitals Temp: [37.6 ??C (99.7 ??F)-37.9 ??C (100.2 ??F)] , Heart Rate: [82 BPM-100 BPM] , Pulse: [93-99] , Resp: [12-20] , BP: (103-131)/(52-90) , SpO2: [91 %-96 %] , O2 Flow Rate (L/min): 2.5 l/min Numeric Pain Level (Scale 1-10): 9 Weight: Weight : (!) 108.9 kg (240 lb) Body mass index is 41.2 kg/m??. Physical Exam General: anxious appearing, sitting up in bed Skin: no rashes/lesions noted CV: reg rhythm, mild tachycardia, no m/r/g Resp: expiratory wheezing heard in all posterior lung godwin, non labored breathing on 2L NC GI: non tender, obese abdomen : no camacho present Extr: tense edema and erythema to mid calf bilaterally Neuro: alert, oriented x3 Psych: cooperative, answers questions appropriately Labs I have personally reviewed Recent Labs 05/07/22 1455 WBC 8.05 RBC 3.79* HGB 11.0* HCT 33.4* MCV 88 MCH 29.0 MCHC 32.9 PLT 101* NEUTROABS 6.72 Recent Labs 05/07/22 1455 NA 135* K 3.5 CL 97 CO2 31 BUN 16 CREATININE 1.15* CALCIUM 8.5 MG 1.8 LABALBU 4.1 Recent Labs 05/07/22 1455 PROTIME 13.7* INR 1.2* PTT 32 Recent Labs 05/07/22 1455 TROPONINI <0.034 Recent Labs 05/07/22 1455 TBIL 1.7* ALKPHOS 119 AST [address] ANGIO ABDOMEN PELVIS Result Date: 04/23/2022 1. No acute abnormality in the abdomen or pelvis. No evidence of occlusion or vascular malformationof the major arterial vasculature of the abdomen and pelvis. 2. Extensive portal and splenic venousthrombosis is again seen and is not significantly changed. 3. Unchanged splenic artery aneurysm. 4.Additional chronic and incidental findings as detailed above. I have personally reviewed the imagesand the above interpretation and agree with the findings. CT ANGIO CHEST PE PROTOCOL Result Date: 04/23/2022 1. No pulmonary emboli. Suboptimal evaluation of subsegmental regions of the lower lobes due to respiratory artifact. 2. Mild hydrostatic edema within the lungs. I have personally reviewed the imagesand the above interpretation and agree with the findings. XR CHEST PORTABLE 1 VIEW Result Date: 05/07/2022 Possible pulmonary edema I have personally reviewed the images and the above interpretation and agree with the findings. XR CHEST PORTABLE 1 VIEW Result Date: 04/27/2022 Possible mild interstitial pulmonary edema. Lower lung volumes and the larger patient I have personally reviewed the images and the above interpretation and agree with the findings. US LIVER/ABDOMEN VISCERAL DOPPLER Result Date: 05/07/2022 1. Thrombus within the main portal vein, splenic vein, and superior mesenteric vein is better assessed on recent CT angiogram. 2. Decreased peak systolic velocity in the right and left portal veins is suggestive of portal venous hypertension. 3. Redemonstrated cirrhotic configuration of the liver with no focal hepatic lesion identified. 4. Redemonstrated splenomegaly. MELD-Na score: 14 at 05/07/2022 14:55 MELD score: 12 at 05/07/2022 14:55 Calculated from: Serum Creatinine: 1.15 mg/dL at 05/07/2022 14:55 Serum Sodium: 135 mmol/L at 05/07/2022 14:55 Total Bilirubin: 1.7 mg/dL at 05/07/2022 14:55 INR(ratio): 1.2 Ratio at 05/07/2022 14:55 Age: 61 years Assessment Tara Yun is a 61 y.o. female with a medical history of NAFLD (with portal vein thrombosis and small esophageal varices), HFpEF, COPD, GI bleed secondary to duodenal ulcer, hypothyroidism, CKD,HUEY, GERD, and anxiety presenting with anasarca and dyspnea. She is admitted for IV diuresis and further w/u of volume overload Plan Hypervolemia, dyspnea: Reports that she is up 12-13 lbs in the last week or so. Pulmonary edema on CXR, notable pitting edema in legs bilaterally. S/p lasix 40mg IV in ED. Last echo 10/2021 - nml EF and mild LVH. NT BNP was normal in the ED. Suspect decompensation of cirrhosis, worsening heart failure seems unlikely given normal NT proBNP. Reports adherence with outpatient diuretics. - redose lasix 60mg IV 18 AM - RECHECKER spironolactone - goal net -2L - strict I/Os - fluid restriction - TTE ordered -POCUS versus formal ultrasound to evaluate for ascites Decompensated cirrhosis secondary to NAFLD: As above, suspect this is the driving factor in her hypervolemia. Difficult to tell on exam if she has ascites. MELD on admission was 14 - Ultrasound as above for ascites - If large-volume ascites present, will need therapeutic para - Continue diuretics as above - Outpatient follow-up with GI - Daily MELD COPD: Also contributing to dyspnea. S/p prednisone and duoneb in ED. - RECHECKER Symbicort - Duonebs PRN - hold further prednisone, low concern for active exacerbation Portal, Splenic, Mesenteric Venous Thromboses: Followed by Dr. Padilla. Had been on Lovenox and Eliquis at various times however stopped due to acute bleeding. Clots stable over past 3 months. Plt currently 101. LE Duplex U/S 02/2022 showed no DVT. - Outpatient follow-up Hypothyroidism: - RECHECKER levothyroxine 25 mcg Chronic Pain Syndrome: - RECHECKER oxycodone, chloroxazone GERD: - RECHECKER sucralfate, pantoprazole Anxiety: - RECHECKER Zoloft 100mg - RECHECKER trazadone VTE Prophylaxis Seqential Compression Device Code: No Active Order Discharge Plan Home or self care Consults None Admission status Inpatient admission due to anticipated duration of hospitalization is two midnights or greater due to hypervolemia. Jahaira Kidd 05/07/2022 22:58 I was present for the history taking, physical exam, and clinical decision making documented. I have edited the medical student's note as appropriate. Nati Meng MD 05/08/22 1:27 PGY-2 Internal Medicine Pager [phone] & [employer] Cosigned by Todd Stone MD MPH at 05/08/2022 4:25 EDT Associated attestation - Todd Stone MD MPH - 05/08/2022 0425 EDT Attending Attestation I have interviewed and examined the patient. I personally reviewed laboratories studies, radiographic studies, ECG, and prior records. I discussed the case with: Dr. Meng and Alvarado Perlavenkata. I agreewith the findings and plan of care as documented in the note above. Patient with a history of HFPEF, QUIROZ cirrhosis and COPD coming with with progressive dyspnea and anasarca. Being admitted to hospital for aggressive IV diuresis and given increased o2 requirements. Given 40 Lasix in ED with increased output although hard to track in ED, plan for another 60 IV in AM and further dosing will leave to primary team depending on output/trends/kidney function, strict I/O and daily weights with low Na diet. We dont't have a clear sense of what is causing this increased volume overload, suspect some combination of HFPEF and cirrhosis, unclear what is causing sudden worsening, further workup underway. Could consider POCUS and possibly therapeutic paracentesis if not improving with IV diuretics, suspect less likely ascites a major issue here given no free fluid since on RUQ US obtained in ED. Will hold lovenox ppx for now and just SCD's - per hematology notes, seems like even 40mg Lovenox every day caused bleeding issues, could consider curbsiding hematology in AM for further advisement. Todd Stone MD MPH 05/07/22 9pm documented in this encounter ED Notes * Ember Fuchs - 05/07/20222023 EDT Admitting team at the bedside * Ember Fuchs - 05/07/2022 1909 EDT Pt talking in full sentences on the phone, no increased WOB. Remains on oxygen. Pt states she wearsoxygen at night and during the day PRN. Recently has been wearing it frequently during the day. VSS, plan for admission. Will continue to monitor. * Ember Fuchs - 05/07/2022 1839 EDT Pt medicated per JAN and given firts dose keflex for suspected cellulitis in lower extremities. Pt up to bedside commode, voided clear yellow urine. Remains on 2L NC * Ember Fuchs - 05/07/2022 1748 EDT Pt up to bedside commode with stable gait, voided 350cc clear yellow urine * Ember Fuchs - 05/07/2022 1717 EDT Assumed care of pt from Justa HAWK. Pt sleeping soundly on stretcher, no increased WOB, VSS, call light within reach * Lon Pierre - 05/07/2022 1556 EDT Blood drawn via saline lock per protocol, cultures and pink tube(s) sent to lab per order. * Javid Tapia MD - 05/07/2022 1505 EDT This patient received an evaluation and medical screening exam for emergent medical conditions at the [facility] on 05/07/2022 Scribe attestation: This documentation is recorded by Irena Oglesby acting as Scribe under the direction and presence of Javid Tapia MD. Javid Tapia MD: I personally performed the services recorded by the scribe in my presence. I confirm the scribe's documentation has been reviewed by me to accurately and completely record my work, treatment, procedures, and medical decision making. Chief Complaint Shortness of breath HPI Tara Yun is a 61 y.o. female with PMH including CHF (20 mg Lasix), COPD (O2 at night or as needed), Cirrhosis (QUIROZ) (spironolactone), hypothyroidism (levothyroxine), thrombocytopenia (previous platelet transfusion), who presents to the ED for shortness of breath and leg swelling bilaterallyfor the past 2-3 days. Patient endorses increasing shortness of breath, wheezing, and cough associated with orthopnea and PND with bilateral leg swelling with warmth. Patient endorses having an increase of 20 lbs over the past week. Patient reports nausea but no abdominal pain, vomiting or diarrhea. Denies any dysuria or hematuria or chest pain. Patient denies any recent blood in stool. Patient denies any missed doses of spironolactone or lasix. atient reports she is vaccinated for COVID-19. Patient was transferred from Urgent Care. Patient had a known PVT. She is off of bloodthinners per discussion with medical team due to prior bleeds. EKG at demonstrated Sinus at a rate of 86 BPM, with normal axis and normal intervals. Normal ST segments. T wave flattening in lead III. History was provided by: patient, medical records review Patient's pertinent PMH, FH, SH were reviewed and updated PRN. ROS A 10 point review of systems has been performed and is otherwise negative except as noted in the HPI. Physical Exam Vital Signs Vitals Reassessment?: Yes Temp: 37.6 ??C (99.7 ??F) Temp src: Oral Pulse: 93 Heart Rate: 82 BPM Cardiac Rhythm: Normal sinus rhythm Resp: 13 SpO2: 94 % Pulse From Oximetry: 82 BPM BP: 123/76 BP MAP: 89 mm Hg BP Device: BP Machine BP Patient Position: Sitting BP Cuff Location: Right arm O2 Device: Nasal cannula Nursing notes and vital signs were reviewed. Constitutional: Non-toxic appearing Eyes: Pupils equal and reactive to light, no scleral icterus Mouth: Moist oral mucosa without apparent lesions Neck: Full ROM, no cervical LAD Heart: Tachycardic. No appreciable murmurs, rubs or gallops. Strong peripheral pulses Lungs: Tachypneic, trace biphasic wheezing, crackles posteriorly at the bases. Abdomen: Soft, nontender Skin: No overt rashes on exposed skin Extremities: Moving spontaneously, warm and well perfused. Pitting edema of bilateral extremities to proximal pelayo. Warm, erythematous, and mildly tender. No crepitus, or streaking of tenderness beyond the knee. Neuro: Grossly neurologically intact with normal speech Psych: No agitation or overt thought disorder Physical Exam Laboratory Results Labs Reviewed COMPLETE BLOOD COUNT AND DIFFERENTIAL - Abnormal Result Value Status WBC 8.05 Final RBC 3.79 (*) Final Hemoglobin 11.0 (*) Final HCT 33.4 (*) Final MCV 88 Final MCH 29.0 Final MCHC 32.9 Final RDW-CV 15.5 (*) Final RDW-SD 49.4 Final PLT 101 (*) Final MPV 9.6 Final Neutrophils 83.6 Final Lymphocytes 4.7 Final Monocytes 10.8 Final Eosinophils 0.5 Final Basophils 0.2 Final Immature Grans 0.2 Final Absolute Neutrophils 6.72 Final Absolute Lymphocytes 0.38 (*) Final Absolute Monocytes 0.87 (*) Final Absolute Eosinophils 0.04 Final Absolute Basophils 0.02 Final Absolute Immature Grans 0.02 Final Type of Differential: Auto Final COMPREHENSIVE METABOLIC PANEL (CMP) - Abnormal Sodium 135 (*) Final Potassium 3.5 Final Chloride 97 Final CO2 Total 31 Final Glucose 118 (*) Final BUN 16 Final Creatinine 1.15 (*) Final eGFR 54 (*) Final Total Protein 7.4 Final Albumin 4.1 Final Alkaline Phosphatase 119 Final AST 32 Final ALT 22 Final Bilirubin, Total 1.7 (*) Final Calcium 8.5 Final Albumin/Globulin Ratio 1.2 Final Anion Gap 7 Final PROTIME - Abnormal I.N.R. 1.2 (*) Final Pro Time 13.7 (*) Final Narrative: Moderate Intensity Coumadin INR = 2.0-3.0 Adjustments in anticoagulant therapy dose should be based on the INR and NOT on the Protime. POCT BLOOD GAS, EG6 I-STAT - Abnormal pH, Venous, i-STAT 7.42 (*) Final pCO2, Venous, i-STAT 50 Final pO2, Venous, i-STAT 29 (*) Final TCO2, Venous, i-STAT 34 (*) Final O2 Saturation, Venous, i-STAT 56 (*) Final Base Excess(+) / Deficit(-), Venous, i-STAT 6 (*) Final Narrative: Test Performed by Respiratory INFLUENZA A AND B,RSV PCR - Normal FLU A RNA Result (FLARES) Negative Final FLU B RNA Result (FLBRES) Negative Final RSV RNA Result (RSVRES) Negative Final NT PRO BNP - Normal NT-pro BNP 36 Final TROPONIN I - Normal Troponin I (ng/mL) <0.034 Final Narrative: The results of this assay can be falsely lowered due to the consumption of Biotin. MAGNESIUM - Normal Magnesium 1.8 Final LACTIC ACID - Normal Lactic Acid 1.4 Final PTT - Normal PTT 32 Final COVID-19 TESTING COVID-19 rt-PCR Result Negative Final Performing Lab Gene[facility]pert [facility] Lab Final COVID-19 TEST [facility] PCR BACTERIAL CULTURE, BLOOD BACTERIAL CULTURE, BLOOD HOLD BLUE TOP Hold Hold Final TYPE AND SCREEN ABO O Final Rh Factor Positive Final Antibody Screen Negative Final Specimen Expires: 05/10/2022 @ 23:59 Final Data Interpretation Imaging obtained was reviewed and independently interpreted: US Liver/Abdomen Visceral Doppler: 1. Thrombus within the main portal vein, splenic vein, and superior mesenteric vein is better assessed on recent CT angiogram. 2. Decreased peak systolic velocity in the right and left portal veins is suggestive of portal venous hypertension. 3. Redemonstrated cirrhotic configuration of the liver with no focal hepatic lesion identified. 4. Redemonstrated splenomegaly. XR Chest: Possible pulmonary edema Laboratory results independently reviewed, significant for: Negative COVID-19, Negative Flu A, B and RSV. RBC of 3.79, hemoglobin of 11.0, hematocrit of 33.4. Sodium of 135, creatinine of 1.15, Calculated GFR of 54, and total bilirubin of 1.7. Procedures Procedures None ED Course/Medical Decision Making A medical screening was performed. MDM: History of COPD and CHF presenting with worsening dyspnea, orthopnea, 20 pound weight gain andleg swelling. Overall it appears her presentation is most likely being driven predominantly by her CHF, is newly requiring oxygen during the day and clinically is volume overloaded, will continue with diuresis. Does have COPD with some evidence of active reactive airway disease with wheezing, treating with steroids and nebs but ultimately does not require NIPPV for work of breathing or for her CHF. Consider pneumonia but her chest x-ray does not show a focal infiltrate. Consider ACS, no chest pain, EKG with no evidence of ischemia and troponins are negative. Consider PE, does have a history of portal vein thrombosis off anticoagulation but has 2 much more likely drivers of her symptoms. Does have bilateral lower extremity pain and swelling erythema and tenderness with a petechial appearing rash, history of thrombocytopenia although platelets are 100,000 which are above her baseline, would be atypical to have bilateral cellulitis although given warmth and tenderness will treat with keflex forpossible nonpurulent cellulitis, less likely b/l DVT. Low suspicion for NSTI. Admit for further diuresis. I performed a limited ED POCUS applications: Aorta [id number] ultrasound. Please see my narrative and impression recorded in imaging results. I performed, reviewed, and independently interpreted the images. Images saved in [employer] and PACS. 1454: patient treated with 3 mL of Duoneb nebulizer 1605: patient treated with 40 mg of IV Lasix and 4 mg of IV Zofran 1606: Patient treated with 40 mg of Prednisone tablet 1836: patient treated with 5 mg of oxycodone and 500 mg of keflex PO The patient was stable for admission to Adult Hospital Medicine under the care and supervision of Dr. Deepti Peterson for further evaluation and treatment. While under my care in the Emergency Department, the patient's pain was managed to an adequate level weighing risk vs. benefit of medication. Prior to discharge usual and customary precautions were reviewed with the patient and/or family including follow-up instructions and reasons to return to the Emergency Department if condition worsens, does not improve as expected, or other new concerns arise. Clinical Impression Final diagnoses: Shortness of breath Hypoxemia Disposition Admitted The patient's pain was managed to an adequate level weighing risk vs. benefit of further medications. Any further pain treatment will be at the discretion of the provider following up with the patient based on their clinical assessment. * Carina Gallardo RN - 05/07/2022 1450 EDT EKG done at shown to Dr. Zimmerman. * Carina Gallardo RN - 05/07/2022 1440 EDT BP 131/59 (BP Cuff Location: Right arm, BP Patient Position: Sitting) Pulse 93 Temp 37.6 ??C (99.7 ??F) (Oral) Resp 20 Ht 162.6 cm (64) Wt (!) 108.9 kg (240 lb) SpO2 92% BMI 41.20 kg/m?? Chief Complaint Patient presents with ??? Shortness of Breath BIBEMS from for 2 days of increasing SOB and BUE edema and redness.HX COPD, CHF. Neg COVID test.Temp 99.7. Wheezing on arrival. documented in this encounter Miscellaneous Notes * Plan of Care - Mounika Aldana RN - 05/11/2022 1057 EDT Data: VSS on RA. AOX3. Independent in room. OOB to BR. Voiding. Regular diet, strict I/O. BLE pain. Action: Meds given per JAN. PRN oxy/robaxin given x1 prior to discharge. Response: Resting in chair. Tolerating diet. Tolerating ambulation. Discharge home today with meds to pickle sorter at pharmacy. MOUNIKA ALDANA RN 05/11/2022 10:57 Problem: High Fall Risk: Goal: Patient will Remain Free of Falls due to Med. Side Effects 05/11/2022 1047 by Mounika Aldana, RN Outcome: Ongoing 05/11/2022 1045 by Mounika Aldana RN Outcome: Ongoing Problem: Daily Care Plan Goals Goal: Care Plan Documentation 05/11/2022 1047 by Mounika Aldana RN Outcome: Ongoing 05/11/2022 1045 by Mounika Aldana RN Outcome: Ongoing Problem: FLUID AND ELECTROLYTE IMBALANCE Goal: Fluid and electrolyte balance are achieved/maintained and infant exhibits signs of adequate hydration Outcome: Ongoing * Plan of Care - Nadege Owens RN - 05/11/2022 0330 EDT Problem: Daily Care Plan Goals Goal: Care Plan Documentation Outcome: Met This Shift Flowsheets (Taken 05/11/2022 0000) Area of Focus: Sleep Goal This Shift: Pt will be able to sleep overnight Data: Assumed care of patient at 2300, report received from KENN Joseph. Pt asleep, RR even and unlabored. Pt snoring. Pt A/O X3, ambulating hallway earlier this shift. Calls appropriately for pain meds, pain 9/10 to bilateral lower extremities. TEDS removed overnight per pt request. Legs elevated on pillows overnight. Action: Medications given per jan. Hourly safety checks enforced. Response: Pt able to sleep well overnight, care clustered to assist with rest. Pt pain managed by prn medications. Call hines in reach, pt calls appropriately. NADEGE OWENS RN 05/11/2022 3:30 * Plan of Care - Arie Prabhakar - 05/10/2022 1426 EDT Initial Case Management/Social Work Assessment and Discharge Plan/Readmission Risk Assessment REASON FOR ADMISSION: Shortness of breath Patient understands reason for admission: (P) Yes PATIENT INFO VERIFIED: (P) PCP, Contact Info, Address Type of housing (single family, condo, apartment, senior care, single room occupancy, [facility] funded hotel room, group long-term) - [facility] Who does the patient live with? 2 non related housemates Does the patient have access to their own bedroom/bathroom/kitchen - or is it shared with others? shared Name of housing complex (ex [facility], [facility], etc)- NA Housing Authority/Managing Organization - NA Community Care Providers (pillowcase turner, [facility] nurse, etc) name and contact information- Conradministerio Trip home O2 LIVING ARRANGEMENTS AND ACCESSIBILITY ISSUES: Living Arrangements: (S) (P) Private residence, Friends (lives with 2 non related house mates.) Stairs to enter: (P) 2 Handicap access: (P) Railings into home, Grab bars Bathroom located on bedroom level?: (P) Yes What in home social supports are available to the patient? (P) Family member(s), Friends / neighbors Is 13/06 care available? (P) No ADVANCED DIRECTIVES, POA &/or COLST IN PLACE: Healthcare Directive: No, patient does not have advance directive for healthcare treatment Type of Healthcare Directive: Health care treatment directive Copy in Chart: Yes, new copy in paper chart @ [facility] Information Provided on Healthcare Directives: Yes Information on Healthcare Directives Requested: No DIRECTIVES FOR FINANCES: Directive For Finances: No TRANSPORTATION: Transportation: (P) Family Transportation Additional Details: (P) housemate can transport. Patient expects to be discharged to: (P) home CULTURAL, GNOSTICISM and/or LANGUAGE factors affecting health care/discharge planning: Spiritual/Cultural Requests: None Language/Literacy Needs Do you need us to provide any communication aids or devices?: No Insurance Information: Medical Insurance: Yes Type of insurance: Medicare, Medicaid Medicare type: A, B Medicaid Type: Community Referred to patient financial services: No Nutrition: DISCHARGE RISK ASSESSMENT: (P) Diagnosis of COPD Total # selected above: (P) Score of 1 - 2: This patient is at LOW RISK for re-hospitalization Tentative plan to address the risk of re-hospitalization for those at HIGH MODERATE RISK: (P) Bringrisk factors to attention of team to be addressed RAPT TOOL: Age: (P) 50-65 Gender: (P) Female Ambulation distance: (P) 2 or more blocks (600ft) Gait device: (P) None Community Services: (P) Home health, [facility], [facility]-none of one time a week Will you live with someone who will care for you?: (P) No RAPT Tool Score: (P) 8 Patient expects to be discharged to: (P) home SBIRT: SASQ (Single Alcohol Screening Question) How many times in the past year have you had 4 or more drinks in a single day?: (P) Never How many times in the past year have you used an illegal drug or used a prescription medication fornon-medical reasons?: (P) Never Intervention in place/initiated?: (P) No, not indicated FUNCTIONAL STATUS: Activities patient requires assistance: (P) None Assistive Devices: (P) None COMMUNITY RESOURCES/SUPPORTS: Primary Care Provider: Emigdio Veronica PCP Verified: Specialists: Type of Home Health Services: (P) None DME Provider: (P) tr[facility] for Pharmacy: [id number] - [place], [place] - [address] [place] [address] Home Health: Other: POST HOSPITAL TRANSITION PLAN: The patient is a 61 year old previously independent female who livesin a 1 level [facility] with 2 non related house mates who [...] house mate. Plan is likely home to self carewhen medically ready for DC. CM will follow for team recommendations related to DC. No CM needs anticipated. ARIE PRABHAKAR 05/10/2022 14:28 * Plan of Care - Jw Tyson RN - 05/10/2022 1415 EDT Problem: Daily Care Plan Goals Goal: Care Plan Documentation Outcome: Met This Shift Flowsheets (Taken 05/10/2022 0800) Area of Focus: GI//Elimination Goal This Shift: will have a BM Note: Data: Pt is A&Ox3. Pt with flat affect. Pt feels discouraged with current condition. Pt with bilat teds on Lower extremities. Pain is 7/10 in Left leg and ABD. Pt states she hasn't had a BM in 1 week. Pt with hypoactive BS. Lungs are clear but diminished. BP 90/51 (BP Cuff Location: Right arm, BP Patient Position: Sitting) Pulse 90 Temp 36.5 ??C (97.7 ??F) (Oral) Resp 12 Ht 162.6 cm (64) Wt (!) 108.9 kg (240 lb) SpO2 95% BMI 41.20 kg/m?? Action: Mag citrate ordered this AM. Encourage Pt to elevate legs on pillows and or in chair. Lasixordered. Response: Call light within reach. Independent in room. Pt voiding. Pt states she had a large BM and feels a little better. ARNAV needed still. JW TYSON RN 05/10/2022 14:07 * Plan of Care - Yun White RN - 05/10/2022 0328 EDT Problem: Daily Care Plan Goals Goal: Care Plan Documentation Outcome: Ongoing Data: Assumed care @ 1900. Patient awake alert and oriented. Patient on room air, respirations evenand unlabored. Patient complaining of pain to bilat legs. Compression stockings in place. Patient ambulated often. Action: Administered meds asper JAN. PRN Oxy and Robaxin given as requested by patient. 1x dose of Mag Sulfate given as per JAN. Hourly rounding. Response: Patient stated Oxy and Robaxin took edge off of pain from legs. Patient had some difficulty sleeping. Patient safe and stable. YUN WHITE RN 05/10/2022 3:28 * Plan of Care - Shaquille Keenan RN - 05/09/2022 1439 EDT Data: No changes this shift. Main complaint continues to be LE pain L>R. Bilat LE edema L>R with redness. Oob ad patricia, ambulating around entire unit. Denies any dyspnea. Good po intake. Fair urine output. No BM this shift, miralax given. VSS. Action: Meds given per MAR. Hourly rounding completed. Safety maintained. Response: Reports feeling more fatigued than yesterday. Enjoyed visiting with a friend. SHAQUILLE KEENAN RN 05/09/2022 14:39 * Plan of Care - Yun White RN - 05/09/2022 0150 EDT Problem: Daily Care Plan Goals Goal: Care Plan Documentation Outcome: Ongoing Data: Assumed care @ 1900. Patient awake alert and oriented. Patient on room air, respirations evenand unlabored. Patient independent OOB, ambulates often. Patient reports small hard BM. Patient complaining of pain to legs. Call hines in reach, bed in lowest position. Action: Administered meds as per JAN. Oxy and Robaxin given as requested by patient. Hourly rounding. Response: Patient reports some relief from pain meds. Patient safe, stable and comfortable. YUN WHITE RN 05/09/2022 1:50 * Plan of Care - Shaquille Keenan RN - 05/08/2022 1646 EDT Data: Gena is very pleasant, a&ox3. Up ad patricia in room. Ambulating around unit without issue.Good po intake. low output post lasix. Reports no BM for 1 week, miralax started. Good po intake. Oxy and robaxin for complaints of bilat leg pain and back spasms. Denies sob, sating well on room air. VSS. Action: Meds given per JAN. Hourly rounding completed. Safety maintained. Call hines within reach. Response: No new complaints this shift. Resting comfortably in bed at this time. SHAQUILLE KEENAN RN 05/08/2022 16:46 * Plan of Care - Yun White RN - 05/08/2022 0231 EDT Problem: Daily Care Plan Goals Goal: Care Plan Documentation Outcome: Ongoing Data: Assumed care around 0100. Patient awake alert and oriented. Patient on 2L O2 via NC, respirations even and unlabored. Dyspneic with exertion. Patient complaining of pain to lower extremities. Skin assessment completed with Cinthya HAWK. Redness noted under L breast and abdominal/groin fold. Redness noted to BLE, L>R. Bilat LE edema. Call hines in reach. Bed in lowest position. Action: Administered meds as per JAN. Oxy given as requested by patient for leg pain. Continuous SPO2 monitoring. Hourly rounding. Response: Patient safe stable and comfortable. YUN WHITE RN 05/08/2022 2:31 documented in this encounter Plan of Treatment Upcoming Encounters Date Type Department Care Team (Late st Contact Info) Description 01/04/2025 13:00 EST Office Visit [facility] Ophthalmology - [address] [phone] Jennifer Rome MD [address] [place] [address], [facility] [address] [place] [phone] 02/11/2025 13:30 EDT Telemedicine [facility] Hematology & Oncology - [address] [phone] Dana Padilla MD [address] [place] [address], [facility] [address] [place] [phone] documented as of this encounter Procedures Procedure Name Priority Date/Time Associated Diagnosis Comments PROTIME Routine 05/11/2022 9:22 EDT COMPLETE BLOOD COUNT Routine 05/11/2022 9:22 EDT COMPREHENSIVE METABOLIC PANEL (CMP) Routine 05/11/2022 9:22 EDT TRANSTHORACIC ECHO (TTE) COMPLETE Routine 05/10/2022 15:43 EDT PROTIME Routine 05/10/2022 11:09 EDT COMPREHENSIVE METABOLIC PANEL (CMP) Routine 05/10/2022 11:09 EDT COMPLETE BLOOD COUNT Routine 05/10/2022 11:08 EDT MAGNESIUM Routine 05/09/2022 20:30 EDT BASIC METABOLIC PANEL (BMP) Routine 05/09/2022 20:30 EDT PROTIME Routine 05/09/2022 9:23 EDT COMPLETE BLOOD COUNT Routine 05/09/2022 9:23 EDT CK Add-On 05/09/2022 9:23 EDT COMPREHENSIVE METABOLIC PANEL (CMP) Routine 05/09/2022 9:23 EDT ELECTROLYTES Routine 05/08/2022 17:51 EDT TRANSFERRIN SATURATION Add-On 05/08/2022 10:01 EDT PROFILE IRON STUDIES (INCLUDES IRON, IBC, AND FERRITIN) Add-On 05/08/2022 10:01 EDT PROTIME Routine 05/08/2022 10:01 EDT COMPLETE BLOOD COUNT Routine 05/08/2022 10:01 EDT FERRITIN Add-On 05/08/2022 10:01 EDT COMPREHENSIVE METABOLIC PANEL (CMP) Routine 05/08/2022 10:01 EDT US LOWER VENOUS DUPLEX (DVT) BILATERAL Routine 05/08/2022 8:36 EDT US LIVER/ABDOMEN VISCERAL DUPLEX STAT 05/07/2022 16:50 EDT TYPE AND SCREEN STAT 05/07/2022 15:56 EDT BACTERIAL CULTURE, BLOOD STAT 05/07/2022 15:55 EDT XR CHEST PORTABLE 1 VIEW STAT 05/07/2022 15:44 EDT POCT BLOOD GAS, EG6 I-STAT Routine 05/07/2022 15:25 EDT HOLD BLUE TOP Routine 05/07/2022 14:55 EDT BACTERIAL CULTURE, BLOOD STAT 05/07/2022 14:55 EDT TROPONIN I STAT 05/07/2022 14:55 EDT LACTIC ACID Routine 05/07/2022 14:55 EDT PTT STAT Add-on 05/07/2022 14:55 EDT PROTIME STAT Add-on 05/07/2022 14:55 EDT COMPLETE BLOOD COUNT AND DIFFERENTIAL STAT 05/07/2022 14:55 EDT NT PRO BNP STAT 05/07/2022 14:55 EDT MAGNESIUM STAT 05/07/2022 14:55 EDT HEMOGLOBIN A1C Add-On 05/07/2022 14:55 EDT COMPREHENSIVE METABOLIC PANEL (CMP) STAT 05/07/2022 14:55 EDT ZZCOVID-19 TEST [facility] PCR STAT 05/07/2022 14:47 EDT COVID-19 TESTING STAT 05/07/2022 14:4 7 EDT ZZHN INFLUENZA A AND B, RSV PCR STAT 05/07/2022 14:47 EDT POCT US ED GUIDANCE PIV 05/07/2022 14:44 EDT documented in this encounter Results * (ABNORMAL) COMPLETE BLOOD COUNT (05/11/2022 9:22 EDT) WBC 3.89(L) 4.00 - 12.40 K/cmm 05/11/2022 9:52 EDT [facility] RBC 3.45(L) 3.86 - 5.04 M/cmm 05/11/2022 9:52 [facility] Hemoglobin 9.8(L) 11.6 - 15.2 gm/dL 05/11/2022 9:52 [facility] HCT 30.3(L) 34.9 - 44.4 % 05/11/2022 9:52 [facility] LABORATORY SERVICES MCV 88 81 - 98 fl 05/11/2022 9:52 T [facility] MCH 28.4 26.7 - 33.3 pg 05/11/2022 9:52 [facility] MCHC 32.3 32.1 - 35.9 gm/dL 05/11/2022 9:52 [facility] RDW-CV 15.3(H) <14.7 % 05/11/2022 9:52 [facility] RDW-SD 49.0 <50.4 fl 05/11/2022 9:52 [facility] PLT 107(L) 141 - 377 K/cmm 05/11/2022 9:52 [facility] MPV 10.2 9.5 - 12.7 fl 05/11/2022 9:52 [facility] Blood VENOUS BLOOD / Unknown Venipuncture / Unknown 05/11/2022 9:22 EDT 05/11/2022 9:44 EDT Nati Meng MD HEMATOLOGY & PF4 ORDERABLES F inal Result [facility] [address] [place] [address] * (ABNORMAL) COMPREHENSIVE METABOLIC PANEL (CMP) (05/11/2022 9:22 ED) Sodium 136 136 - 145 mmol/L 05/11/2022 10:22 [facility] Potassium 4.5 3.5 - 5.0 mmol/L 05/11/2022 10:22 [facility] Chloride 102 96 - 110 mmol/L 05/11/2022 10:22 [facility] CO2 Total 28 22 - 32 mmol/L 05/11/2022 10:22 [facility] Glucose 89 70 - 100 mg/dL 05/11/2022 10:22 [facility] BUN 19 10 - 26 mg/dL 05/11/2022 10:22 [facility] Creatinine 0.90 0.52 - 1.04 mg/dL 05/11/2022 10:22 [facility] eGFR 73 >60 mL/min/1.7 3m2 05/11/2022 10:22 [facility] Total Protein 6.3 6.3 - 8.2 g/dL 05/11/2022 10:22 [facility] Albumin 3.6 3.4 - 4.9 g/dL 05/11/2022 10:22 [facility] Alkaline Phosphatase 147(H) 38 - 126 U/L 05/11/2022 10:22 [facility] AST 27 15 - 46 U/L 05/11/2022 10:22 [facility] ALT 20 <35 U/L 05/11/2022 10:22 [facility] Bilirubin, Total <0.5 <1.4 mg/dL 05/11/20 10:22 [facility] Calcium 8.7 8.5 - 10.5 mg/dL 05/11/2022 10:22 [facility] Albumin/Globulin Ratio 1.3 1.0 - 2.5 05/11/2022 10:22 EDT [facility] Anion Gap 6 5 - 14 05/11/2022 10:22 EDT [facility] Blood VENOUS BLOOD / Unknown Venipuncture / Unknown 05/11/2022 9:22 EDT 05/11/2022 9:54 EDT Nati Meng MD CHEMISTRY & BLOOD GAS ORDERAB LES Final Result Performing Organization Address [facility] Co de Phone Number [facility] [address] [place] [address] * PROTIME (05/11/2022 9:22 EDT) I.N.R. 1.1 0.9 - 1.1 Ratio 05/11/2022 9:57 EDT [facility] Pro Time 12.3 10.4 - 12.6 secs 05/11/2022 9:57 EDT [facility] Blood VENOUS BLOOD / Unknown Venipuncture / Unknown 05/11/2022 9:22 EDT 05/11/2022 9:44 EDT Narrative [facility] - 05/11/2022 9:57 EDT Moderate Intensity Coumadin INR = 2.0-3.0 Adjustments in anticoagulant therapy dose should be based on the INR and NOT on the Protime. Nati Meng MD HEMATOLOGY & PF4 ORDERABLES F inal Result Performing Organization Address [facility] Co de Phone Number [facility] [address] [place] [address] * TRANSTHORACIC ECHO (TTE) COMPLETE W/DOPPLER W/CF NO CONTRAST (05/10/2022 15:43 EDT) LA Atrial Length A2C 5.8 cm [facility] LA Atrial Area A4C 24.3 cm2 [facility] LA ID/bsa, A-P 2.0 cm/m2 [facility] LV ID, ED, PLAX 4.9 3.5 - 6.0 cm [facility] LVIDD BY MMODE 4.9 cm [facility] LV ID, ES, PLAX 3.4 2.1 - 4.0 cm [facility] LA ID, A-P, ES 4.3 cm [facility] LV PW thickness, ED, PLAX 1.1 0.6 - 1.1 cm [facility] Aortic root ID 3.3 cm [facility] Aortic valve mean velocity, S 1.3 m/s [facility] LV ejection fraction, 1-p A4C 66 % [facility] LVOT mean gradient, S 5 mmHg [facility] Aortic valve area, peak velocity 2.5 cm2 [facility] Aortic mean gradient, S 8 mmHg [facility] AV LVOT peak gradient 10 mmHg [facility] LV e', lateral 0.15 m/s [facility] Mitral deceleration time 236 ms [facility] LV IVRT, DP 88 msec [facility] PO INT OF CARE LVOT area 3.1 cm2 [facility] LVOT peak velocity, S 1.6 m/s [facility] LVOT VTI, S 30.0 cm [facility] PO INT OF CARE Aortic valve peak velocity, S 2.0 m/s [facility] Aortic valve VTI, S 37.3 cm [facility] Stroke volume (SV), LVOT DP 94 ml [facility] Aortic peak gradient, S 16 mmHg [facility] Mitral peak gradient, D 6 mmHg [facility] LVOT mean velocity, S 1.0 m/s [facility] Mitral E-wave peak velocity 1.2 m/s [facility] Mitral A-wave peak velocity 1.0 m/s [facility] LV Systolic Volume Index 18.0 mL/m2 [facility] LV Diastolic Volume Index 55.0 mL/m2 [facility] AV DOI 0.79 [facility] LA Atrial Length A4C 6.0 cm [facility] LVOT ID, S 2.0 cm [facility] POI NT OF CARE EF 67 % [facility] LA volume, ES, BP 69.0 ml [facility] LA volume/bsa, ES, A4C 35.0 ml/m2 [facility] LA volumes, ES, A4C 74.0 ml [facility] LA volume/bsa, ES, BP 33.0 ml/m2 [facility] LV Systolic Volume 38 mL [facility] LV Diastolic Volume 116 mL [facility] Stroke index (SV/bsa) LVOT DP 45.0 ml/m2 [facility] Aortic valve area VTI 2.5 cm2 [facility] Interventricular Septum to Posterior Wall Thickness Ratio 0.9 [facility] P OINT OF C[facility] IVS thickness, ED, PLAX 1.0 cm [facility] LV e', medial 0.10 m/s [facility] AV dimensionless index (DI) 1.2 [facility] LV e', average 0.12 m/s [facility] Velocity ratio, mean, LVOT/AV 0.74 [facility] Aortic valve area 2.3 cm2 [facility] AVAI Pk Yasir 1.1 cm2/m2 [facility] PO INT [facility] Pulmonic valve mean velocity, S 1 cm/s [facility] Ascending aorta ID, a-p 3.1 cm [facility] LA Atrial Area A2C 24.3 cm2 [facility] LA/aortic root ratio 1.3 [facility] LV end diastolic volume 1-p A2C 76 ml [facility] LV ejection fraction, 1-p A2C 66 % [facility] T [facility] LV E/e', lateral 8.0 [facility] LV E/e', medial 0.1 [facility] POINT [facility] LV E/e', average 4 [facility] LV end-diastolic volume, 1-p A4C 147 ml [facility] Anatomical Region Laterality Modality Ultrasound Narrative 05/10/2022 15:49 EDT ?Left??Ventricle: Left ventricular systolic function was hyperdynamic with an ejection fraction =>65%. The estimated left ventricular ejection fraction by biplane Crockett's method was 67 %. ?Right??Ventricle: Right ventricular systolic function was normal. Left Ventricle The left ventricular cavity was normal in size. Left ventricular systolic function was hyperdynamic with an ejection fraction =>65%. The estimated left ventricular ejection fraction by biplane Crockett's method was 67 %. Left ventricular diastolic parameters were normal. Left ventricular wall thickness was normal. Left ventricular wall motion was normal; there were no regional wall motion abnormalities. Right Ventricle The right ventricular cavity was normal in size. Right ventricular systolic function was normal. Right ventricular wall thickness was normal. Left Atrium The left atrium was normal in size. Right Atrium The right atrium was normal in size. IVC/SVC The inferior vena cava was normal in size. Mitral Valve Mitral valve structure was normal. There was trace mitral regurgitation. There was no significant mitral valve stenosis. Tricuspid Valve Tricuspid valve structure was normal. There was trace tricuspid valve regurgitation. There was no tricuspid valve stenosis. Aortic Valve The aortic valve structure was trileaflet. The aortic leaflets were not thickened. There was no aortic valve stenosis. There was no aortic valve regurgitation. AV Peak Gradient: 16mmHg. AV Mean Gradient: 8mmHg. AV Area VTI: 2.5. Pulmonic Valve There was no pulmonic valve regurgitation. There was no pulmonic valve stenosis. Ascending Aorta The aorta was normal in size. Pericardium There was no pericardial effusion. Pulmonic Artery Unable to assess PA pressure. Study Details Study status: Routine. Transthoracic echocardiography. M-Mode, complete 2D, complete spectral Doppler, and color Doppler.The study was interpreted by [facility]. Pertinent images and digital data are archived for permanent storage and are available for subsequent review. Scanning was performed from the apical, parasternal, subcostal and suprasternal acoustic windows. Overall the study quality was adequate. Images were obtained using cardiac ultrasound machine [id number]. Nati Meng MD CARDIAC ECHO ORDERABLES Final Result * (ABNORMAL) COMPREHENSIVE METABOLIC PANEL (CMP) (05/10/2022 11:09 EDT) Sodium 137 136 - 145 mmol/L 05/10/2022 12:23 EDT [facility] Potassium 4.4 3.5 - 5.0 mmol/L 05/10/2022 12:23 [facility] Chloride 98 96 - 110 mmol/L 05/10/2022 12:23 [facility] CO2 Total 29 22 - 32 mmol/L 05/10/2022 12:23 [facility] Glucose 123(H) 70 - 100 mg/dL 05/10/2022 12:23 [facility] BUN 21 10 - 26 mg/dL 05/10/2022 12:23 [facility] Creatinine 0.97 0.52 - 1.04 mg/dL 05/10/2022 12:23 [facility] eGFR 66 >60 mL/min/1.7 3m2 05/10/2022 12:23 [facility] Total Protein 6.6 6.3 - 8.2 g/dL 05/10/2022 12:23 [facility] Albumin 3.8 3.4 - 4.9 g/dL 05/10/2022 12:23 [facility] Alkaline Phosphatase 121 38 - 126 U/L 05/10/2022 12:23 [facility] AST 34 15 - 46 U/L 05/10/2022 12:23 [facility] ALT 22 <35 U/L 05/10/2022 12:23 [facility] Bilirubin, Total 0.6 <1.4 mg/dL 05/10/20 12:23 [facility] Calcium 8.8 8.5 - 10.5 mg/dL 05/10/2022 12:23 [facility] Albumin/Globulin Ratio 1.4 1.0 - 2.5 05/10/2022 12:23 [facility] Anion Gap 10 5 - 14 05/10/2022 12:23 [facility] Blood VENOUS BLOOD / Unknown Venipuncture / Unknown 05/10/2022 11:09 EDT 05/10/2022 11:28 EDT us Nati Meng MD CHEMISTRY & BLOOD GAS ORDERAB LES Final Result [facility] [address] [place] [address] * PROTIME (05/10/2022 11:09 EDT) [facility] I.N.R. 1.1 0.9 - 1.1 Ratio 05/10/2022 11:42 EDT [facility] Pro Time 12.4 10.4 - 12.6 secs 05/10/2022 11:42 EDT [facility] Blood VENOUS BLOOD / Unknown Venipuncture / Unknown 05/10/2022 11:09 EDT 05/10/2022 11:27 EDT Narrative [facility] - 05/10/2022 11:42 EDT Moderate Intensity Coumadin INR = 2.0-3.0 Adjustments in anticoagulant therapy dose should be based on the INR and NOT on the Protime. Nati Meng MD HEMATOLOGY & PF4 ORDERABLES F inal Result [facility] [address] [place] [address] * (ABNORMAL) COMPLETE BLOOD COUNT (05/10/2022 11:08 EDT) [facility] WBC 4.60 4.00 - 12.40 K/cmm 05/10/2022 11:39 EDT [facility] RBC 3.62(L) 3.86 - 5.04 M/cmm 05/10/2022 11:39 EDT [facility] Hemoglobin 10.2(L) 11.6 - 15.2 gm/dL 05/10/2022 11:39 EDT [facility] HCT 31.8(L) 34.9 - 44.4 % 05/10/2022 11:39 EDT [facility] MCV 88 81 - 98 fl 05/10/2022 11:39 EDT [facility] MCH 28.2 26.7 - 33.3 pg 05/10/2022 11:39 EDT [facility] MCHC 32.1 32.1 - 35.9 gm/dL 05/10/2022 11:39 EDT [facility] RDW-CV 15.1(H) <14.7 % 05/10/2022 11:39 EDT [facility] RDW-SD 48.8 <50.4 fl 05/10/2022 11:39 EDT [facility] PLT 112(L) 141 - 377 K/cmm 05/10/2022 11:39 EDT [facility] MPV 10.2 9.5 - 12.7 fl 05/10/2022 11:39 EDT [facility] Blood VENOUS BLOOD / Unknown Venipuncture / Unknown 05/10/2022 11:08 EDT 05/10/2022 11:28 EDT Nati Meng MD HEMATOLOGY & PF4 ORDERABLES F inal Result Performing Organization Address City/[facility]/ZIP Co de Phone Number [facility] [address] [place] [address] * MAGNESIUM (05/09/2022 20:30 EDT) Magnesium 1.9 1.7 - 2.8 mg/dL 05/09/2022 20:58 EDT [facility] Blood VENOUS BLOOD / Unknown Venipuncture / Unknown 05/09/2022 20:30 EDT 05/09/2022 20:37 EDT Enrike Fraser MD CHEMISTRY & BLOOD GAS ORDERABLES Final Result Performing Organization Address [facility]/ZIP Co de Phone Number [facility] [address] [place] [address] * (ABNORMAL) BASIC METABOLIC PANEL (BMP) (05/09/2022 20:30 EDT) Sodium 137 136 - 145 mmol/L 05/09/2022 20:58 EDT [facility] Potassium 4.4 3.5 - 5.0 mmol/L 05/09/2022 20:58 EDT [facility] Chloride 100 96 - 110 mmol/L 05/09/2022 20:58 EDT [facility] CO2 Total 29 22 - 32 mmol/L 05/09/2022 20:58 T [facility] Anion Gap 8 5 - 14 05/09/2022 20:58 EDT [facility] Glucose 125(H) 70 - 100 mg/dL 05/09/2022 20:58 EDT [facility] Calcium 9.0 8.5 - 10.5 mg/dL 05/09/2022 20:58 T [facility] BUN 23 10 - 26 mg/dL 05/09/2022 20:58 T [facility] Creatinine 1.13(H) 0.52 - 1.04 mg/dL 05/09/2022 20:58 T [facility] eGFR 55(L) >60 mL/min/1.73 m2 05/09/2022 20:58 T [facility] Blood VENOUS BLOOD / Unknown Venipuncture / Unknown 05/09/2022 20:30 EDT 05/09/2022 20:37 EDT Osiris Shaw MD CHEMISTRY & BLOOD GAS ORDERABL ES Final Result Performing Organization Address City/[facility]/ZIP Co de Phone Number [facility] [address] [place] [address] * CK (05/09/2022 9:23 EDT) CK 90 30 - 135 U/L 05/09/2022 11:20 EDT [facility] Blood VENOUS BLOOD / Unknown Venipuncture / Unknown 05/09/2022 9:23 EDT 05/09/2022 10:53 EDT Osiris Shaw MD CHEMISTRY & BLOOD GAS ORDERABL ES Final Result Performing Organization Address City/[facility]/ZIP Co de Phone Number [facility] [address] [place] [address] * (ABNORMAL) COMPLETE BLOOD COUNT (05/09/2022 9:23 EDT) WBC 4.85 4.00 - 12.40 K/cmm 05/09/2022 11:56 T [facility] RBC 3.66(L) 3.86 - 5.04 M/cmm 05/09/2022 11:56 [facility] Hemoglobin 10.8(L) 11.6 - 15.2 gm/dL 05/09/2022 11:56 [facility] HCT 32.9(L) 34.9 - 44.4 % 05/09/2022 11:56 [facility] MCV 90 81 - 98 fl 05/09/2022 11:56 [facility] MCH 29.5 26.7 - 33.3 pg 05/09/2022 11:56 [facility] MCHC 32.8 32.1 - 35.9 gm/dL 05/09/2022 11:56 [facility] RDW-CV 15.3(H) <14.7 % 05/09/2022 11:56 [facility] RDW-SD 49.4 <50.4 fl 05/09/2022 11:56 [facility] PLT 110(L) 141 - 377 K/cmm 05/09/2022 11:56 [facility] MPV 10.3 9.5 - 12.7 fl 05/09/2022 11:56 [facility] Blood VENOUS BLOOD / Unknown Venipuncture / Unknown 05/09/2022 9:23 EDT 05/09/2022 10:53 EDT Nati Meng MD HEMATOLOGY & PF4 ORDERABLES F inal Result [facility] [address] [place] [address] * (ABNORMAL) COMPREHENSIVE METABOLIC PANEL (CMP) (05/09/2022 9:23 EDT) Pathologist [facility] [place] Sodium 138 136 - 145 mmol/L 05/09/2022 11:25 [facility] Potassium 4.1 3.5 - 5.0 mmol/L 05/09/2022 11:25 [facility] Chloride 98 96 - 110 mmol/L 05/09/2022 11:25 [facility] CO2 Total 30 22 - 32 mmol/L 05/09/2022 11:25 [facility] Glucose 102(H) 70 - 100 mg/dL 05/09/2022 11:25 [facility] BUN 19 10 - 26 mg/dL 05/09/2022 11:25 [facility] Creatinine 1.08(H) 0.52 - 1.04 mg/dL 05/09/2022 11:25 [facility] eGFR 58(L) >60 mL/min/1.7 3m2 05/09/2022 11:25 [facility] Total Protein 6.8 6.3 - 8.2 g/dL 05/09/2022 11:25 [facility] Albumin 3.8 3.4 - 4.9 g/dL 05/09/2022 11:25 [facility] Alkaline Phosphatase 136(H) 38 - 126 U/L 05/09/2022 11:25 [facility] AST 25 15 - 46 U/L 05/09/2022 11:25 [facility] ALT 19 <35 U/L 05/09/2022 11:25 [facility] Bilirubin, Total 0.6 <1.4 mg/dL 05/09/20 11:25 [facility] Calcium 8.4(L) 8.5 - 10.5 mg/dL 05/09/2022 11:25 [facility] Albumin/Globulin Ratio 1.3 1.0 - 2.5 05/09/2022 11:25 [facility] Anion Gap 10 5 - 14 05/09/2022 11:25 [facility] Blood VENOUS BLOOD / Unknown Venipuncture / Unknown 05/09/2022 9:23 EDT 05/09/2022 10:53 EDT Nati Meng MD CHEMISTRY & BLOOD GAS ORDERAB LES Final Result Performing Organization Address [facility] Co de Phone Number [facility] [address] [place] [address] * PROTIME (05/09/2022 9:23 EDT) [facility] I.N.R. 1.1 0.9 - 1.1 Ratio 05/09/2022 11:15 EDT [facility] Pro Time 12.2 10.4 - 12.6 secs 05/09/2022 11:15 EDT [facility] Blood VENOUS BLOOD / Unknown Venipuncture / Unknown 05/09/2022 9:23 EDT 05/09/2022 10:53 EDT Narrative [facility] - 05/09/2022 11:15 EDT Moderate Intensity Coumadin INR = 2.0-3.0 Adjustments in anticoagulant therapy dose should be based on the INR and NOT on the Protime. Nati Meng MD HEMATOLOGY & PF4 ORDERABLES F inal Result Performing Organization Address [facility] Co de Phone Number [facility] [address] [place] [address] * (ABNORMAL) ELECTROLYTES (05/08/2022 17:51 EDT) Sodium 135(L) 136 - 145 mmol/L 05/08/2022 18:30 EDT [facility] Potassium 3.3(L) 3.5 - 5.0 mmol/L 05/08/2022 18:30 EDT [facility] Chloride 96 96 - 110 mmol/L 05/08/2022 18:30 EDT [facility] CO2 Total 28 22 - 32 mmol/L 05/08/2022 18:30 EDT [facility] Anion Gap 11 5 - 14 05/08/2022 18:30 EDT [facility] Blood VENOUS BLOOD / Unknown Venipuncture / Unknown 05/08/2022 17:51 EDT 05/08/2022 18:11 EDT Osiris Shaw MD CHEMISTRY & BLOOD GAS ORDERABL ES Final Result Performing Organization Address [facility]/ZIP Co de Phone Number [facility] [address] [place] [address] * FERRITIN (05/08/2022 10:01 EDT) Pathologist [facility] [place] Ferritin 129 10 - 291 ng/mL 05/10/2022 9:19 EDT [facility] Blood VENOUS BLOOD / Unknown Venipuncture / Unknown 05/08/2022 10:01 EDT 05/08/2022 10:52 EDT Osiris Shaw MD CHEMISTRY & BLOOD GAS ORDERABL ES Final Result Performing Organization Address [facility] de Phone Number [facility] [address] [place] [address] * (ABNORMAL) TRANSFERRIN SATURATION (05/08/2022 10:01 EDT) [facility] Iron 40 37 - 170 ??g/dL 05/08/2022 13:04 EDT [facility] Iron Binding Capacity 427 240 - 450 ??g/dL 05/08/2022 13:04 EDT [facility] Transferrin Saturation 9(L) 15 - 45 % 05/08/2022 13:04 EDT [facility] Blood VENOUS BLOOD / Unknown Venipuncture / Unknown 05/08/2022 10:01 EDT 05/08/2022 10:52 EDT Osiris Shaw MD CHEMISTRY & BLOOD GAS ORDERABL ES Final Result Performing Organization Address [facility] Co de Phone Number [facility] [address] [place] [address] * (ABNORMAL) COMPLETE BLOOD COUNT (05/08/2022 10:01 EDT) Pathologist [facility] [place] WBC 6.94 4.00 - 12.40 K/cmm 05/08/2022 11:03 [facility] RBC 4.05 3.86 - 5.04 M/cmm 05/08/2022 11:03 [facility] Hemoglobin 11.3(L) 11.6 - 15.2 gm/dL 05/08/2022 11:03 [facility] HCT 35.2 34.9 - 44.4 % 05/08/2022 11:03 [facility] MCV 87 81 - 98 fl 05/08/2022 11:03 [facility] MCH 27.9 26.7 - 33.3 pg 05/08/2022 11:03 [facility] MCHC 32.1 32.1 - 35.9 gm/dL 05/08/2022 11:03 [facility] RDW-CV 14.9(H) <14.7 % 05/08/2022 11:03 [facility] RDW-SD 47.6 <50.4 fl 05/08/2022 11:03 [facility] PLT 113(L) 141 - 377 K/cmm 05/08/2022 11:03 [facility] MPV 10.1 9.5 - 12.7 fl 05/08/2022 11:03 [facility] Blood VENOUS BLOOD / Unknown Venipuncture / Unknown 05/08/2022 10:01 EDT 05/08/2022 10:49 EDT us Nati Meng MD HEMATOLOGY & PF4 ORDERABLES F inal Result [facility] [address] [place] [address] * (ABNORMAL) COMPREHENSIVE METABOLIC PANEL (CMP) (05/08/2022 10:01 EDT) Sodium 134(L) 136 - 145 mmol/L 05/08/2022 11:24 T [facility] Potassium 3.6 3.5 - 5.0 mmol/L 05/08/2022 11:24 [facility] Chloride 94(L) 96 - 110 mmol/L 05/08/2022 11:24 [facility] CO2 Total 30 22 - 32 mmol/L 05/08/2022 11:24 [facility] Glucose 125(H) 70 - 100 mg/dL 05/08/2022 11:24 [facility] BUN 22 10 - 26 mg/dL 05/08/2022 11:24 [facility] Creatinine 1.07(H) 0.52 - 1.04 mg/dL 05/08/2022 11:24 [facility] eGFR 59(L) >60 mL/min/1.7 3m2 05/08/2022 11:24 [facility] Total Protein 7.5 6.3 - 8.2 g/dL 05/08/2022 11:24 [facility] Albumin 4.1 3.4 - 4.9 g/dL 05/08/2022 11:24 [facility] Alkaline Phosphatase 110 38 - 126 U/L 05/08/2022 11:24 [facility] AST 27 15 - 46 U/L 05/08/2022 11:24 [facility] ALT 20 <35 U/L 05/08/2022 11:24 [facility] Bilirubin, Total 1.1 <1.4 mg/dL 05/08/20 11:24 [facility] Calcium 8.6 8.5 - 10.5 mg/dL 05/08/2022 11:24 [facility] Albumin/Globulin Ratio 1.2 1.0 - 2.5 05/08/2022 11:24 [facility] Anion Gap 10 5 - 14 05/08/2022 11:24 [facility] Blood VENOUS BLOOD / Unknown Venipuncture / Unknown 05/08/2022 10:01 EDT 05/08/2022 10:52 EDT Nati Meng MD CHEMISTRY & BLOOD GAS ORDERAB LES Final Result Performing Organization Address [facility] Co de Phone Number [facility] [address] [place] [address] * (ABNORMAL) PROTIME (05/08/2022 10:01 EDT) I.N.R. 1.1 0.9 - 1.1 Ratio 05/08/2022 11:20 EDT [facility] Pro Time 12.9(H) 10.4 - 12.6 secs 05/08/2022 11:20 EDT [facility] Blood VENOUS BLOOD / Unknown Venipuncture / Unknown 05/08/2022 10:01 EDT 05/08/2022 10:49 EDT Narrative [facility] - 05/08/2022 11:20 EDT Moderate Intensity Coumadin INR = 2.0-3.0 Adjustments in anticoagulant therapy dose should be based on the INR and NOT on the Protime. Nati Meng MD HEMATOLOGY & PF4 ORDERABLES F inal Result Performing Organization Address [facility] Co de Phone Number [facility] [address] [place] [address] * US LOWER VENOUS DUPLEX (DVT) BILATERAL (05/08/2022 8:36 EDT) Anatomical Region Laterality Modality Vascular Ultrasound 05/08/2022 9:41 EDT Impressions 05/08/2022 9:41 EDT 1. ??No evidence of deep venous thrombosis in either lower extremity. 2. ??Bilateral calf edema. I have personally reviewed the images and the above interpretation and agree with the findings. Narrative 05/08/2022 9:41 EDT US LOWER VENOUS DUPLEX (DVT) BILATERAL ??05/08/2022 6:15 AM SIGNS AND SYMPTOMS/COMMENTS: ??r/o DVT COMPARISON: Lower extremity venous duplex 06/13/2021. TECHNIQUE: Grayscale, cine, color Doppler, and spectral tracing images were obtained of the deep venous system of both lower extremities. FINDINGS: RIGHT LEG: Deep veins above the knee: The external iliac vein, common femoral vein, deep femoral vein at the common femoral vein bifurcation, proximal through distal femoral vein, and popliteal vein all demonstrate normal Doppler flow/waveforms and compression. Deep veins below the knee: The posterior tibial and peroneal veins demonstrate normal Doppler flow. Superficial veins: The proximal portion of the greater saphenous vein demonstrates normal Doppler flow/waveforms and compression. Other: Mild calf edema is present distally. LEFT LEG: Deep veins above the knee: The external iliac vein, common femoral vein, deep femoral vein at the common femoral vein bifurcation, proximal through distal femoral vein, and popliteal vein all demonstrate normal Doppler flow/waveforms and compression. Deep veins below the knee: The posterior tibial and peroneal veins demonstrate normal Doppler flow. Superficial veins: The proximal portion of the greater saphenous vein demonstrates normal Doppler flow/waveforms and compression. Other: Mild diffuse calf edema is present.. Procedure Note Eugenia Lopez MD - 05/08/2022 US LOWER VENOUS DUPLEX (DVT) BILATERAL 05/08/2022 6:15 AM SIGNS AND SYMPTOMS/COMMENTS: r/o DVT COMPARISON: Lower extremity venous duplex 06/13/2021. TECHNIQUE: Grayscale, cine, color Doppler, and spectral tracing imageswere obtained of the deep venous system of both lower extremities. FINDINGS: RIGHT LEG: Deep veins above the knee: The external iliac vein, common femoral vein,deep femoral vein at the common femoral vein bifurcation, proximal throughdistal femoral vein, and popliteal vein all demonstrate normal Dopplerflow/waveforms and compression. Deep veins below the knee: The posterior tibial and peroneal veinsdemonstrate normal Doppler flow. Superficial veins: The proximal portion of the greater saphenous veindemonstrates normal Doppler flow/waveforms and compression. Other: Mild calf edema is present distally. LEFT LEG: Deep veins above the knee: The external iliac vein, common femoral vein,deep femoral vein at the common femoral vein bifurcation, proximal throughdistal femoral vein, and popliteal vein all demonstrate normal Dopplerflow/waveforms and compression. Deep veins below the knee: The posterior tibial and peroneal veinsdemonstrate normal Doppler flow. Superficial veins: The proximal portion of the greater saphenous veindemonstrates normal Doppler flow/waveforms and compression. Other: Mild diffuse calf edema is present.. IMPRESSION 1. No evidence of deep venous thrombosis in either lower extremity. 2. Bilateral calf edema. I have personally reviewed the images and the above interpretation andagree with the findings. us Todd Stone MD MPH IMG US VASCULAR ORDERABLES Final Result * US ABDOMEN LIMITED WITH COMPLETE DUPLEX (05/07/2022 16:50 EDT) Anatomical Region Laterality Modality Abdomen Ultrasound 05/07/2022 17:0 0 EDT Impressions 05/07/2022 17:00 EDT 1. ??Thrombus within the main portal vein, splenic vein, and superior mesenteric vein is better assessed on recent CT angiogram. 2. ??Decreased peak systolic velocity in the right and left portal veins is suggestive of portal venous hypertension. 3. ??Redemonstrated cirrhotic configuration of the liver with no focal hepatic lesion identified. 4. ??Redemonstrated splenomegaly. Narrative 05/07/2022 17:00 EDT US ABDOMEN LIMITED WITH COMPLETE DOPPLER ??05/07/2022 3:50 PM SIGNS AND SYMPTOMS/COMMENTS: hx cirrhosis 2/2 QUIROZ with PVT off thinners COMPARISONS: CT angiogram abdomen/pelvis from 05/07/2022. TECHNIQUE: Grayscale, color Doppler, spectral Doppler, and cine sweep ultrasound images of the liver were obtained. FINDINGS: LIVER: The liver measures 15.2 cm in length, which is normal. Liver has a heterogeneous echotexture with a nodular contour compatible with known history of cirrhosis. No focal hepatic lesion is identified although portions of the right hepatic lobe are suboptimally assessed due to shadowing from overlying ribs. SPLEEN: The spleen measures 18.8 cm in length, which is enlarged. No focal splenic lesion is identified. Fluid along the inferior aspect of the spleen seen on CT from 04/23/2022 is suboptimally assessed on this study. DOPPLER EVALUATION: Main Portal Vein: 20 cm/s, Normal/hepatopetal flow, nonocclusive thrombus is seen in the main portal vein, as seen on recent comparison CT. Right Portal Vein: 14 cm/s, Normal/hepatopetal flow, no thrombus. Left Portal Vein: 16 cm/s, Normal/hepatopetal flow, no thrombus. Right Hepatic Vein: 30 cm/s, no thrombus Middle Hepatic Vein: 19 cm/s, no thrombus Left Hepatic Vein: 24 cm/s, no thrombus Splenic Vein at Hilum: 27 cm/s, Normal/hepatopetal flow, thrombus in the proximal splenic vein is better assessed on recent comparison CT. Splenic Vein at Pancreas: 38 cm/s, Normal/hepatopetal flow, thrombus in the splenic vein is better assessed on recent comparison CT. Superior Mesenteric Vein: Not well assessed. 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 Inferior Vena Cava: 50 cm/s, normal flow, no thrombus Hepatic Artery at the Justin Hepatis: 93 cm/s PSV, 26 cm/s EDV VESSEL DIAMETERS: Main Portal Vein: Tidal Respiration 2.8 cm OTHER: No free fluid is identified in the imaged portions of the abdomen. There is no recanalization of the umbilical vein identified. 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 TECHNIQUE: Grayscale, color Doppler, spectral Doppler, and cine sweepultrasound images of the liver were obtained. FINDINGS: LIVER: The liver measures 15.2 cm in length, which is normal. Liver has aheterogeneous echotexture with a nodular contour compatible with knownhistory of cirrhosis. No focal hepatic lesion is identified althoughportions of the right hepatic lobe are suboptimally assessed due toshadowing from overlying ribs. SPLEEN: The spleen measures 18.8 cm in length, which is enlarged. No focalsplenic lesion is identified. Fluid along the inferior aspect of thespleen seen on CT from 04/23/2022 is suboptimally assessed on this study. DOPPLER EVALUATION: Main Portal Vein: 20 cm/s, Normal/hepatopetal flow, nonocclusive thrombusis seen in the main portal vein, as seen on recent comparison CT. Right Portal Vein: 14 cm/s, Normal/hepatopetal flow, no thrombus. Left Portal Vein: 16 cm/s, Normal/hepatopetal flow, no thrombus. Right Hepatic Vein: 30 cm/s, no thrombus Middle Hepatic Vein: 19 cm/s, no thrombus Left Hepatic Vein: 24 cm/s, no thrombus Splenic Vein at Hilum: 27 cm/s, Normal/hepatopetal flow, thrombus in theproximal splenic vein is better assessed on recent comparison CT. Splenic Vein at Pancreas: 38 cm/s, Normal/hepatopetal flow, thrombus inthe splenic vein is better assessed on recent comparison CT. Superior Mesenteric Vein: Not well assessed. As a result, known thrombusin the superior mesenteric vein is suboptimally assessed. Inferior VenaCava: 50 cm/s, normal flow, no thrombus Hepatic Artery at the Justin Hepatis: 93 cm/s PSV, 26 cm/s EDV VESSEL DIAMETERS: Main Portal Vein: Tidal Respiration 2.8 cm OTHER: No free fluid is identified in the imaged portions of the abdomen.There is no recanalization of the umbilical vein identified. IMPRESSION 1. Thrombus within the main portal vein, splenic vein, and superiormesenteric vein is better assessed on recent CT angiogram. 2. Decreased peak systolic velocity in the right and left portal veins issuggestive of portal venous hypertension. 3. Redemonstrated cirrhotic configuration of the liver with no focalhepatic lesion identified. 4. Redemonstrated splenomegaly. Javid Tapia MD IMG US ORDERABLES Final Resul t * TYPE AND SCREEN (05/07/2022 15:56 EDT) ABO O 05/07/2022 16:51 EDT [facility] Rh Factor Positive 05/07/2022 16:51 EDT [facility] Antibody Screen Negative 05/07/2022 16:51 EDT [facility] Specimen Expires: 05/10/2022 @ 23:59 05/07/2022 16:51 EDT [facility] Blood VENOUS BLOOD / Unknown Venipuncture / Unknown 05/07/2022 15:56 EDT 05/07/2022 16:04 EDT us Javid Tapia MD BLOOD BANK TESTS Edited Resul t - Final [facility] [address] [facility] [place] [address] * BACTERIAL CULTURE, BLOOD (05/07/2022 15:55 EDT) Organism ID No Growth at 5 days 05/12/2022 16:46 EDT [facility] Blood VENOUS BLOOD / Unknown Blood Culture / Unknown 05/07/2022 15:55 EDT 05/07/2022 16:31 EDT us Hiren Momin PA-C MICROBIOLOGY - GENERAL OR DERABLES Final Result [facility] [address] [place] [address] * XR CHEST PORTABLE 1 VIEW (05/07/2022 15:44 EDT) Anatomical Region Laterality Modality Computed Radiogr aphy 05/07/2022 16:0 7 EDT Impressions 05/07/2022 16:07 EDT Possible pulmonary edema I have personally reviewed the images and the above interpretation and agree with the findings. Narrative 05/07/2022 16:07 EDT XR CHEST PORTABLE 1 VIEW ??05/07/2022 3:10 PM CLINICAL HISTORY/COMMENTS: shortness of breath COMPARISON: Chest radiographs 04/26/2022, 12/14/2021. CT angiogram chest 04/23/2022. FINDINGS: Single portable semiupright AP view of the chest, 65 degrees from supine. Lines/tubes: ??None Soft tissues, bones and extrathoracic findings: No acute abnormality. Cardiac and mediastinal contours: Normal cardiomediastinal silhouette. Lungs: Pulmonary vasculature is indistinct. Mildly increased interstitial thickening in the lung bases. Lungs are otherwise clear. Pleura: No visible pneumothorax or pleural effusion. Procedure Note Colt Burciaga MD - 05/07/2022 XR CHEST PORTABLE 1 VIEW 05/07/2022 3:10 PM CLINICAL HISTORY/COMMENTS: shortness of breath COMPARISON: Chest radiographs 04/26/2022, 12/14/2021. CT angiogram chest 04/23/2022. FINDINGS: Single portable semiupright AP view of the chest, 65 degrees fromsupine. Lines/tubes: None Soft tissues, bones and extrathoracic findings: No acute abnormality. Cardiac and mediastinal contours: Normal cardiomediastinal silhouette. Lungs: Pulmonary vasculature is indistinct. Mildly increased interstitialthickening in the lung bases. Lungs are otherwise clear. Pleura: No visible pneumothorax or pleural effusion. IMPRESSION Possible pulmonary edema I have personally reviewed the images and the above interpretation andagree with the findings. us Sharon Zimmerman MD IMG DIAGNOSTIC IMAGING ORDERABLE S Final Result * (ABNORMAL) POCT BLOOD GAS, EG6 I-STAT (05/07/2022 15:25 EDT) pH, Venous, i-STAT 7.42(H) 7.31 - 7.41 05/07/2022 15:31 EDT [facility] pCO2, Venous, i-STAT 50 41 - 51 mmHg 05/07/2022 15:31 EDT [facility] pO2, Venous, i-STAT 29(L) 30 - 50 mmHg 05/07/2022 15:31 T [facility] TCO2, Venous, i-STAT 34(H) 22 - 28 mmol/L 05/07/2022 15:31 T [facility] O2 Saturation, Venous, i-STAT 56(L) 60 - 85 % 05/07/2022 15:31 [facility] Base Excess(+) / Deficit(-), Venous, i-STAT 6(H) -2 - 3 mmol/L 05/07/2022 15:31 [facility] Blood VENOUS BLOOD / Unknown 05/07/2022 15:25 EDT 05/07/2022 15:31 EDT Narrative [facility] - 05/07/2022 15:31 EDT Test Performed by Respiratory us Javid Tapia MD POINT OF CARE TEST ORDERABLES Final Result [facility] [address] [place] [address] * HEMOGLOBIN A1C (05/07/2022 14:55 EDT) [facility] Hemoglobin A1c 5.5 <5.7 % 05/09/2022 9:36 EDT [facility] Comment: Glycemic Status References: Normal: ??<5.7% Pre-Diabetes: ??5.7% - 6.4% Diagnostic of Diabetes: ??> or = 6.5% (if confirmed) Est Avg Glucose 111 mg/dL 9:36 EDT [facility] Comment:The eAG represents t he A1c result expressed as average glucose in mg/dL. Blood VENOUS BLOOD / Unknown Venipuncture / Unknown 05/07/2022 14:55 EDT 05/07/2022 15:25 EDT Nati Meng MD CHEMISTRY & BLOOD GAS ORDERAB LES Final Result [facility] [address] [place] [address] * PTT (05/07/2022 14:55 EDT) [facility] PTT 32 26 - 37 secs 05/07/2022 15:50 EDT [facility] Blood VENOUS BLOOD / Unknown Venipuncture / Unknown 05/07/2022 14:55 EDT 05/07/2022 15:25 EDT us Javid Tapia MD HEMATOLOGY & PF4 ORDERABLES F inal Result Performing Organization Address City/[facility]/ZIP Co de Phone Number [facility] [address] [place] [address] * (ABNORMAL) PROTIME (05/07/2022 14:55 EDT) [facility] I.N.R. 1.2(H) 0.9 - 1.1 Ratio 05/07/2022 15:50 EDT [facility] Pro Time 13.7(H) 10.4 - 12.6 secs 05/07/2022 15:50 EDT [facility] Blood VENOUS BLOOD / Unknown Venipuncture / Unknown 05/07/2022 14:55 EDT 05/07/2022 15:25 EDT Narrative [facility] - 05/07/2022 15:50 EDT Moderate Intensity Coumadin INR = 2.0-3.0 Adjustments in anticoagulant therapy dose should be based on the INR and NOT on the Protime. Javid Tapia MD HEMATOLOGY & PF4 ORDERABLES F inal Result Performing Organization Address [facility]/ZIP Co de Phone Number [facility] [address] [place] [address] * BACTERIAL CULTURE, BLOOD (05/07/2022 14:55 EDT) Organism ID No Growth at 5 days 05/12/2022 16:01 EDT [facility] Blood VENOUS BLOOD / Unknown 05/07/2022 14:55 EDT 05/07/2022 15:51 EDT Hiren Momin PA-C MICROBIOLOGY - GENERAL OR DERABLES Final Result Performing Organization Address [facility] Co de Phone Number [facility] [address] [place] [address] * LACTIC ACID (05/07/2022 14:55 EDT) Lactic Acid 1.4 <=2.0 mmol/L 05/07/2022 15:41 EDT [facility] Blood VENOUS BLOOD / Unknown Venipuncture / Unknown 05/07/2022 14:55 EDT 05/07/2022 15:25 EDT Hiren Momin PA-C CHEMISTRY & BLOOD GAS ORD ERABLES Final Result Performing Organization Address City/[facility]/ZIP Co de Phone Number [facility] [address] [place] [address] * HOLD BLUE TOP (05/07/2022 14:55 EDT) Hold Hold 05/07/2022 16:31 EDT [facility] Blood VENOUS BLOOD / Unknown Venipuncture / Unknown 05/07/2022 14:55 EDT 05/07/2022 15:25 EDT Sharon Zimmerman MD LAB INFO SERVICE AND SUPPORT & P JEFFREY RESULT Final Result Performing Organization Address City/[facility]/ZIP Co de Phone Number [facility] [address] [place] [address] * MAGNESIUM (05/07/2022 14:55 EDT) [facility] Magnesium 1.8 1.7 - 2.8 mg/dL 05/07/2022 15:41 EDT [facility] Blood VENOUS BLOOD / Unknown Venipuncture / Unknown 05/07/2022 14:55 EDT 05/07/2022 15:25 EDT Sharon Zimmerman MD CHEMISTRY & BLOOD GAS ORDERABLES Final Result Performing Organization Address [facility]/ZIP Co de Phone Number [facility] [address] [place] [address] * TROPONIN I (05/07/2022 14:55 EDT) [facility] Troponin I (ng/mL) <0.034 <0.034 ng/mL 05/07/2022 15:52 EDT [facility] Blood VENOUS BLOOD / Unknown Venipuncture / Unknown 05/07/2022 14:55 EDT 05/07/2022 15:25 EDT Narrative [facility] - 05/07/2022 15:52 EDT The results of this assay can be falsely lowered due to the consumption of Biotin. Sharon Zimmerman MD CHEMISTRY & BLOOD GAS ORDERABLES Final Result Performing Organization Address City/[facility]/ZIP Co de Phone Number [facility] [address] [place] [address] * NT PRO BNP (05/07/2022 14:55 EDT) NT-pro BNP 36 <125 pg/mL 05/07/2022 [facility]:The results of this assay can be falsely lowered due to consumption of Biotin. Blood VENOUS BLOOD / Unknown Venipuncture / Unknown 05/07/2022 14:55 EDT 05/07/2022 15:25 EDT Sharon Zimmerman MD CHEMISTRY & BLOOD GAS ORDERABLES Final Result [facility] [address] [place] [address] * (ABNORMAL) COMPREHENSIVE METABOLIC PANEL (CMP) (05/07/2022 14:55 EDT) Pathologist [facility] Sodium 135(L) 136 - 145 mmol/L 05/07/2022 15:41 [facility] Potassium 3.5 3.5 - 5.0 mmol/L 05/07/2022 15:41 [facility] Chloride 97 96 - 110 mmol/L 05/07/2022 15:41 [facility] CO2 Total 31 22 - 32 mmol/L 05/07/2022 15:41 [facility] Glucose 118(H) 70 - 100 mg/dL 05/07/2022 15:41 [facility] BUN 16 10 - 26 mg/dL 05/07/2022 15:41 [facility] Creatinine 1.15(H) 0.52 - 1.04 mg/dL 05/07/2022 15:41 [facility] eGFR 54(L) >60 mL/min/1.7 3m2 05/07/2022 15:41 [facility] Total Protein 7.4 6.3 - 8.2 g/dL 05/07/2022 15:41 [facility] Albumin 4.1 3.4 - 4.9 g/dL 05/07/2022 15:41 [facility] Alkaline Phosphatase 119 38 - 126 U/L 05/07/2022 15:41 [facility] AST 32 15 - 46 U/L 05/07/2022 15:41 [facility] ALT 22 <35 U/L 05/07/2022 15:41 [facility] Bilirubin, Total 1.7(H) <1.4 mg/dL 05/07/20 15:41 [facility] Calcium 8.5 8.5 - 10.5 mg/dL 05/07/2022 15:41 [facility] Albumin/Globulin Ratio 1.2 1.0 - 2.5 05/07/2022 15:41 [facility] Anion Gap 7 5 - 14 05/07/2022 15:41 [facility] Blood VENOUS BLOOD / Unknown Venipuncture / Unknown 05/07/2022 14:55 EDT 05/07/2022 15:25 EDT Sharon Zimmerman MD CHEMISTRY & BLOOD GAS ORDERABLES Final Result [facility] [address] [place] [address] * (ABNORMAL) COMPLETE BLOOD COUNT AND DIFFERENTIAL (05/07/2022 14:55 EDT) WBC 8.05 4.00 - 12.40 K/cmm 05/07/2022 15:41 [facility] RBC 3.79(L) 3.86 - 5.04 M/cmm 05/07/2022 15:41 [facility] Hemoglobin 11.0(L) 11.6 - 15.2 gm/dL 05/07/2022 15:41 [facility] HCT 33.4(L) 34.9 - 44.4 % 05/07/2022 15:41 [facility] MCV 88 81 - 98 fl 05/07/2022 15:41 [facility] MCH 29.0 26.7 - 33.3 pg 05/07/2022 15:41 [facility] MCHC 32.9 32.1 - 35.9 gm/dL 05/07/2022 15:41 [facility] RDW-CV 15.5(H) <14.7 % 05/07/2022 15:41 [facility] RDW-SD 49.4 <50.4 fl 05/07/2022 15:41 [facility] PLT 101(L) 141 - 377 K/cmm 05/07/2022 15:41 [facility] MPV 9.6 9.5 - 12.7 fl 05/07/2022 15:41 [facility] % Neutrophils 83.6 % 05/07/2022 15:41 [facility] % Lymphocytes 4.7 % 05/07/2022 15:41 [facility] % Monocytes 10.8 % 05/07/2022 15:41 [facility] % Eosinophils 0.5 % 05/07/2022 15:41 [facility] % Basophils 0.2 % 05/07/2022 15:41 [facility] % Immature Grans 0.2 % 05/07/20 15:41 [facility] Absolute Neutrophils 6.72 2.20 - 8.85 K/cmm 05/07/2022 15:41 [facility] Absolute Lymphocytes 0.38(L) 1.09 - 3.30 K/cmm 05/07/2022 15:41 [facility] Absolute Monocytes 0.87(H) 0.10 - 0.80 K/cmm 05/07/2022 15:41 [facility] Absolute Eosinophils 0.04 0.03 - 0.61 K/cmm 05/07/2022 15:41 [facility] ABS Basophils 0.02 0.01 - 0.11 K/cmm 05/07/2022 15:41 [facility] Absolute Immature Grans 0.02 0.00 - 0.06 K/cmm 05/07/2022 15:41 [facility] Type of Differential: Auto 05/07/2022 15:41 EDT [facility] Blood VENOUS BLOOD / Unknown Venipuncture / Unknown 05/07/2022 14:55 EDT 05/07/2022 15:25 EDT Sharon Zimmerman MD PACKAGES & DNA PROBE ORDERABLES Final Result Performing Organization Address [facility] [facility] Co de Phone Number [facility] [address] [place] [phone] * COVID-19 TEST [facility] PCR (05/07/2022 14:47 EDT) Swab ENTIRE NASOPHARYNX / Unknown Swab / Unknown 05/07/2022 14:47 EDT 05/07/2022 14:53 EDT Sharon Zimmerman MD MICROBIOLOGY - GENERAL ORDERABLE S Final Result Performing Organization Address [facility] de Phone Number [facility] [address] [place] [phone] * COVID-19 TESTING (05/07/2022 14:47 EDT) COVID-19 rt-PCR Result Negative Negative 05/07/2022 15:42 EDT [facility] Comment: This test has [...] history, and epidemiological information. Performed on the [employer] GeneXpert Instrument Performing Lab GeneXpert [facility] Lab 05/07/2022 15:42 EDT [facility] Swab ENTIRE NASOPHARYNX / Unknown Swab / Unknown 05/07/2022 14:47 EDT 05/07/2022 14:53 EDT Sharon Zimmerman MD MICROBIOLOGY - GENERAL ORDERABLE S Final Result Performing Organization Address [facility] de Phone Number [facility] [address] [place] [address] * INFLUENZA A AND B,RSV PCR (05/07/2022 14:47 EDT) FLU A RNA Result (FLARES) Negative Negative 05/07/2022 15:42 EDT [facility] FLU B RNA Result (FLBRES) Negative Negative 05/07/2022 15:42 EDT [facility] RSV RNA Result (RSVRES) Negative Negative 05/07/2022 15:42 EDT [facility] Swab ENTIRE NASOPHARYNX / Unknown Swab / Unknown 05/07/2022 14:47 EDT 05/07/2022 14:53 EDT Sharon Zimmerman MD MICROBIOLOGY - GENERAL ORDERABLE S Final Result Performing Organization Address [facility] de Phone Number [facility] [address] [place] [address] * POCT US ED GUIDANCE PIV (05/07/2022 14:44 EDT) Anatomical Region Laterality Modality Other 05/07/2022 14:4 4 EDT Narrative 05/08/2022 11:15 EDT Study Date and Time: 2022-05-07 14:44 Study Author: Lon Pierre IVT ED Procedural Guidance - PIV: Indications: ?Indications [...] flush in lumen) ?Comments: N/A Signed by Lon MICHAEL on 2022-05-07 18:40 Physician Attestation: I reviewed and independently interpreted these images. ??I was present for the brown and critical portions of the ultrasound imaging and agree with or have edited the findings as documented. Final Signature by Kathleen ARCHER on 2022-05-08 11:15 Procedure Note Kathleen Castro MD - 05/08/2022 Study Date and Time: 2022-05-07 14:44 Study Author: Lon MICHAEL ED Procedural Guidance - PIV: Indications: [...] flush in lumen) Comments: N/A Signed by Lon MICHAEL on 2022-05-07 18:40 Physician Attestation: I reviewed and independently interpreted theseimages. I was present for the brown and critical portions of the ultrasoundimaging and agree with or have edited the findings as documented. 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) Acute vascular insufficiency of intestine Hypothyroidism, unspecified type Respiratory failure with hypoxia (HCC-CMS) Acute respiratory failure Hypoxemia documented in this encounter Admitting Diagnoses Diagnosis Respiratory failure with hypoxia (HCC-CMS) Acute respiratory failure documented in this encounter Administered Medications Inactive Administered Medications - up to 3 most recent administrations Medication Order MAR Action Action Date Dose Rate Site budesonide-formoterol HFA (SYMBICORT) 160-4.5 mcg/actuation inhaler 2 Puff 2 Puff, inhalation, DAILY, First dose on Tue05/08/22 at 0900, Until Discontinued, Routine Given 05/11/2022 8:52 EDT 2 Puffs Given 05/10/2022 8:13 EDT 2 Puffs Given 05/09/2022 8:14 EDT 2 Puffs cephalexin (KEFLEX) capsule 500 mg 500 mg, oral, NOW X1, 1 dose, On Tue05/07/22 at 1815, STAT Given 05/07/2022 18:36 EDT 500 mg docusate sodium (ENEMEEZ) enema 1 Enema 1 Enema, rectal, DAILY PRN, Starting on Tue05/08/22 at 1252, Until Tue05/11/22 at 1417, Constipation, Routine Given 05/08/2022 18:38 EDT 1 Enema furosemide (LASIX) injection 40 mg 40 mg, intravenous, NOW X1, 1 dose, On Tue05/07/22 at 1600, STAT Given 05/07/2022 16:05 EDT 40 mg furosemide (LASIX) injection 40 mg 40 mg, intravenous, NOW X1, 1 dose, On Tue05/08/22 at 1400, STAT Given 05/08/2022 14:48 EDT 40 mg furosemide (LASIX) injection 40 mg 40 mg, intravenous, NOW X1, 1 dose, On Tue05/09/22 at 1815, STAT Given 05/09/2022 18:25 EDT 40 mg furosemide (LASIX) injection 60 mg 60 mg, intravenous, NOW X1, 1 dose, On Tue05/08/22 at 0900, Routine Given 05/08/2022 9:26 EDT 60 mg furosemide (LASIX) tablet 20 mg 20 mg, oral, NOW X1, 1 dose, On Tue05/10/22 at 1245, Routine Given 05/10/2022 12:41 EDT 20 mg furosemide (LASIX) tablet 20 mg 20 mg, oral, DAILY, First dose on Tue05/11/22 at 0900, Until Discontinued, Routine Given 05/11/2022 8:51 EDT 20 mg glycerin (adult) suppository 1 Suppository 1 Suppository, rectal, DAILY PRN, Starting on Tue05/08/22 at 1252, Until Tue05/11/22 at 1417, Constipation, Routine ipratropium-albuteroL (DUONEB) 0.5 mg-3 mg(2.5 mg base)/3 mL nebulizer solution 3 mL 3 mL, nebulization, NOW X1, 1 dose, On Tue05/07/22 at 1500, STAT Given 05/07/2022 14:47 EDT 3 mL ipratropium-albuteroL (DUONEB) 0.5 mg-3 mg(2.5 mg base)/3 mL nebulizer solution 3 mL 3 mL, nebulization, NOW X1, 1 dose, On Tue05/07/22 at 1500, STAT Given 05/07/2022 14:54 EDT 3 mL ipratropium-albuteroL (DUONEB) 0.5 mg-3 mg(2.5 mg base)/3 mL nebulizer solution 3 mL 3 mL, nebulization, EVERY 6 HOURS PRN, Starting on Tue05/07/22 at 2054, Until Tue05/11/22 at 1417, Wheezing, Routine ipratropium-albuteroL (DUONEB) 0.5 mg-3 mg(2.5 mg base)/3 mL nebulizer solution 1 dose, Starting on Tue05/07/22 at 1442, Until Tue05/07/22 at 1447 levothyroxine (SYNTHROID) tablet 25 mcg 25 mcg, oral, DAILY BEFORE BREAKFAST, First dose on Tue05/08/22 at 0700, Until Discontinued, Routine Given 05/11/2022 6:00 EDT 25 mcg Given 05/10/2022 5:25 EDT 25 mcg Given 05/09/2022 5:47 EDT 25 mcg magnesium citrate solution 296 mL 296 mL, oral, Once (Without Time Specified), 1 dose, Starting on Tue05/09/22 at 1830, Until 05/10/22 at 0810, STAT Given 05/10/2022 8:10 EDT 296 mL magnesium sulfate 2 g in water 50 mL 2 g, intravenous, Administer over 60 Minutes, NOW X1, 1 dose, On Tue05/09/22 at 2200, STAT New Bag 05/09/2022 22:05 EDT 2 g methocarbamoL (ROBAXIN) tablet 500 mg 500 mg, oral, 3 TIMES DAILY PRN, Starting on 05/08/22 at 0130, Until Tu05/11/22 at 1417, muscle spasms, Routine Given 05/11/2022 12:06 EDT 500 mg Given 05/11/2022 5:52 EDT 500 mg Given 05/10/2022 23:00 EDT 500 mg ondansetron (PF) (ZOFRAN) injection 4 mg 4 mg, intravenous, NOW X1, 1 dose, On Tue05/07/22 at 1530, STAT Given 05/07/2022 16:05 EDT 4 mg oxyCODONE (ROXICODONE) immediate release tablet 5 mg 5 mg, oral, NOW X1, 1 dose, On Tue05/07/22 at 1815, STAT Given 05/07/2022 18:36 EDT 5 mg oxyCODONE (ROXICODONE) immediate release tablet 5 mg 5 mg, oral, EVERY 8 HOURS PRN, Starting on Tue05/07/22 at 2347, Until 05/08/22 at 1325, Pain, Routine Given 05/08/2022 10:43 EDT 5 mg Given 05/08/2022 2:38 EDT 5 mg oxyCODONE (ROXICODONE) immediate release tablet 5 mg 5 mg, oral, 3 TIMES DAILY PRN, Starting on 05/08/22 at 1330, Until Tue05/09/22 at 1407, Pain, Routine Given 05/09/2022 11:27 EDT 5 mg Given 05/09/2022 5:47 EDT 5 mg Given 05/08/2022 22:14 EDT 5 mg oxyCODONE (ROXICODONE) immediate release tablet 7.5 mg 7.5 mg, oral, 3 TIMES DAILY PRN, Starting on Tue05/09/22 at 1406, Until Tue05/11/22 at 1417, Pain, Routine Given 05/11/2022 12:06 EDT 7.5 mg Given 05/11/2022 5:52 EDT 7.5 mg Given 05/10/2022 23:00 EDT 7.5 mg pantoprazole (PROTONIX) tablet 40 mg 40 mg, oral, 2 TIMES DAILY, First dose on Tue05/08/22 at 0900, Until Discontinued, Routine Given 05/11/2022 10:29 EDT 4 0 mg Given 05/10/2022 20:52 EDT 40 mg Given 05/10/2022 12:02 EDT 40 mg polyethylene glycol 3350 (MIRALAX) packet 17 g 17 g, oral, 2 TIMES DAILY, First dose (after last modification) on 05/08/22 at 1315, Until Discontinued, Routine Given 05/11/2022 8:52 EDT 17 g Given 05/10/2022 20:52 EDT 17 g Given 05/09/2022 20:08 EDT 17 g potassium chloride (KLOR-CON) packet 40 mEq 40 mEq, oral, NOW X1, 1 dose, On Tue05/08/22 at 1915, Routine Given 05/08/2022 19:57 EDT 40 mEq potassium chloride SA (K-DUR) tablet 20 mEq 20 mEq, oral, NOW X1, 1 dose, On Tue05/08/22 at 1945, Routine Given 05/08/2022 20:13 EDT 20 mEq predniSONE (DELTASONE) tablet 40 mg 40 mg, oral, NOW X1, 1 dose, On Tue05/07/22 at 1600, STAT Given 05/07/2022 16:06 EDT 40 mg ramelteon (ROZEREM) tablet 8 mg 8 mg, oral, AT BEDTIME PRN, Starting on Tue05/08/22 at 0116, Until Tue05/11/22 at 1417, Sleep, Routine Given 05/08/2022 22:14 EDT 8 mg senna (SENOKOT) tablet 2 Tablet 2 Tablet, oral, AT BEDTIME, First dose on Tue05/08/22 at 2100, Until Discontinued, Routine Given 05/10/2022 20:52 EDT 2 Tablets Given 05/09/2022 20:09 EDT 2 Tablets Given 05/08/2022 20:13 EDT 2 Tablets sertraline (ZOLOFT) tablet 100 mg 100 mg, oral, DAILY, First dose on 05/08/22 at 0900, Until Discontinued, Routine Given 05/11/2022 8:51 EDT 100 mg Given 05/10/2022 8:09 EDT 100 mg Given 05/09/2022 8:13 EDT 100 mg spironolactone (ALDACTONE) tablet 50 mg 50 mg, oral, DAILY, First dose on 05/08/22 at 0900, Until Discontinued, Routine Given 05/11/2022 8:51 EDT 50 mg Given 05/10/2022 8:09 EDT 50 mg Given 05/09/2022 8:13 EDT 50 mg sucralfate (CARAFATE) tablet 1 g 1 g, oral, 4 TIMES DAILY, First dose on 05/08/22 at 0800, Until Discontinued, Routine Given 05/11/2022 8:51 EDT 1 g Given 05/10/2022 20:52 EDT 1 g Given 05/10/2022 12:05 EDT 1 g traZODone (DESYREL) tablet 200 mg 200 mg, oral, AT BEDTIME, First dose on 05/08/22 at 0145, Until Discontinued, Routine Given 05/10/2022 20:52 EDT 2 00 mg Given 05/09/2022 20:08 EDT 200 mg Given 05/08/2022 20:13 EDT 200 mg documented in this encounter Discontinued Medications Medication Sig Discontinue Reason Start Date End Da te furosemide (LASIX) 20 mg tablet Take 1 Tablet by mouth daily. Reorder 02/24/2022 05/11/2022 documented as of this encounter Active and Recently Administered Medications Times are shown in EDT. Scheduled Medication Order 05/09/2022 05/10/2022 05/11/2022 budesonide-formoterol HFA (SYMBICORT) 160-4.5 mcg/actuation inhaler 2 Puff 2 Puff, inhalation, DAILY, First dose on 05/08/22 at 0900, Until Discontinued, Routine 0814 (Given - Provider: Shaquille Keenan RN) 08 (Given - Provider: Jw Tyson, RN) 0852 (Given - Provider: Mounika Aldana, RN) furosemide (LASIX) injection 40 mg (COMPLETED) 40 mg, intravenous, NOW X1, 1 dose, On Tue05/09/22 at 1815, STAT 1825 (Given - Provider: Shaquille Keenan RN) furosemide (LASIX) tablet 20 mg (COMPLETED) 20 mg, oral, NOW X1, 1 dose, On Tue05/10/22 at 1245, Routine 1241 (Given - Provider: Jw Tyson RN) furosemide (LASIX) tablet 20 mg 20 mg, oral, DAILY, First dose on Tue05/11/22 at 0900, Until Discontinued, Routine 0851 (Given - Provider: Mounika Aldana, KENN) levothyroxine (SYNTHROID) tablet 25 mcg 25 mcg, oral, DAILY BEFORE BREAKFAST, First dose on Tue05/08/22 at 0700, Until Discontinued, Routine 0547 (Given - Provider: Yun White RN) 0525 (Given - Provider: Yun White RN) 0600 (Given - Provider: Nadege Owens RN) magnesium citrate solution 296 mL (COMPLETED) 296 mL, oral, Once (Without Time Specified), 1 dose, Starting on Tue05/09/22 at 1830, Until Tue05/10/22 at 0810, STAT 0810 (Given - Provider: Jw Tyson RN) magnesium sulfate 2 g in water 50 mL (COMPLETED) 2 g, intravenous, Administer over 60 Minutes, NOW X1, 1 dose, On Tue05/09/22 at 2200, STAT 2205 (New Bag - Provider: Yun White RN) pantoprazole (PROTONIX) tablet 40 mg 40 mg, oral, 2 TIMES DAILY, First dose on Tue05/08/22 at 0900, Until Discontinued, Routine 08 (Given - Provider: Shaquille Keenan RN)2007 (Given - Provider: Yun White RN) 120 (Given - Provider: Jw Tyson RN)2051 (Given - Provider: Opal Silva RN) 102 (Given - Provider: Mounika Aldana, KENN) polyethylene glycol 3350 (MIRALAX) packet 17 g 17 g, oral, 2 TIMES DAILY, First dose (after last modification) on 05/08/22 at 1315, Until Discontinued, Routine 08 (Given - Provider: Shaquille Keenan RN)2007 (Given - Provider: Yun White RN) 817 (Hold - Provider: Jw Tyson RN - Reason: Other - Comment: mag citrate given)2051 (Given - Provider: Opal Silva, RN) 851 (Given - Provider: Mounika Aldana RN) senna (SENOKOT) tablet 2 Tablet 2 Tablet, oral, AT BEDTIME, First dose on 05/08/22 at 2100, Until Discontinued, Routine 2008 (Given - Provider: Yun White RN) 2051 (Given - Provider: Opal Silva RN) sertraline (ZOLOFT) tablet 100 mg 100 mg, oral, DAILY, First dose on 05/08/22 at 0900, Until Discontinued, Routine 08 (Given - Provider: Shaquille Keenan RN) 08 (Given - Provider: Jw Tyson RN) 0851 (Given - Provider: Mounika Aldana, KENN) spironolactone (ALDACTONE) tablet 50 mg 50 mg, oral, DAILY, First dose on 05/08/22 at 0900, Until Discontinued, Routine 08 (Given - Provider: Shaquille Keenan RN) 0809 (Given - Provider: Jw Tyson RN) 0851 (Given - Provider: Mounika Aldana, KENN) sucralfate (CARAFATE) tablet 1 g 1 g, oral, 4 TIMES DAILY, First dose on 05/08/22 at 0800, Until Discontinued, Routine 08 (Given - Provider: Shaquille Keenan RN)1128 (Given - Provider: Shaquille Keenan RN)1716 (Given - Provider: Shaquille Keenan RN)2008 (Given - Provider: Yun White RN) 0809 (Given - Provider: Jw Tyson RN)1205 (Given - Provider: Jw Tyson RN)1653 (Not Given - Provider: Lang Burns RN - Reason: Patient/family refused - Comment: Reports would rather not have it if I have a say in it, education provided, patient would like to skip dose)2051 (Given - Provider: Opal Silva, RN) 0851 (Given - Provider: Mounika Aldana, RN)1200 (Not Given - Provider: Mounika Aldana RN - Reason: Patient/family refused) traZODone (DESYREL) tablet 200 mg 200 mg, oral, AT BEDTIME, First dose on 05/08/22 at 0145, Until Discontinued, Routine 2007 (Given - Provider: Yun White RN) 2051 (Given - Provider: Opal Silva RN) PRN Medication Order 05/09/2022 05/10/2022 05/11/2022 acetaminophen (TYLENOL) tablet 500 mg 500 mg, oral, EVERY 6 HOURS PRN, Starting on Tue05/08/22 at 0116, Until Tue05/11/22 at 1417, Pain, Fever, Routine albuterol inhaler 180 mcg 180 mcg (2 Puff), inhalation, EVERY 4 HOURS PRN, Starting on Tue05/08/22 at 0116, Until Tue05/11/22 at 1417, Wheezing, Shortness of Breath, Routine docusate sodium (ENEMEEZ) enema 1 Enema 1 Enema, rectal, DAILY PRN, Starting on Tue05/08/22 at 1252, Until Tue05/11/22 at 1417, Constipation, Routine glycerin (adult) suppository 1 Suppository 1 Suppository, rectal, DAILY PRN, Starting on Tue05/08/22 at 1252, Until Tue05/11/22 at 1417, Constipation, Routine ipratropium-albuteroL (DUONEB) 0.5 mg-3 mg(2.5 mg base)/3 mL nebulizer solution 3 mL 3 mL, nebulization, EVERY 6 HOURS PRN, Starting on Tue05/07/22 at 2054, Until Tue05/11/22 at 1417, Wheezing, Routine lidocaine (PF) 10 mg/mL (1 %) injection 2 mg 2 mg, intradermal, PRN, 4 doses, Starting on 05/08/22 at 0116, Until Tue05/11/22 at 1417, peripheral intravenous catheter placement, Routine methocarbamoL (ROBAXIN) tablet 500 mg 500 mg, oral, 3 TIMES DAILY PRN, Starting on 05/08/22 at 0130, Until 05/11/22 at 1417, muscle spasms, Routine 0547 (Given - Provider: Yun White RN)112 (Given - Provider: Shaquille Keenan, KENN)2019 (Given - Provider: Yun White RN) 0524 (Given - Provider: Yun White RN)182 (Given - Provider: Lang Burns RN)2300 (Given - Provider: Opal Silva RN) 0552 (Given - Provider: Nadege Owens, RN)1206 (Given - Provider: Mounika Aldana, RN) oxyCODONE (ROXICODONE) immediate release tablet 5 mg (CANCELED) 5 mg, oral, 3 TIMES DAILY PRN, Starting on 05/08/22 at 1330, Until 05/09/22 at 1407, Pain, Routine 0547 (Given - Provider: Yun White RN)112 (Given - Provider: Shaquille Keenan RN) oxyCODONE (ROXICODONE) immediate release tablet 7.5 mg 7.5 mg, oral, 3 TIMES DAILY PRN, Starting on 05/09/22 at 1406, Until Tu05/11/22 at 1417, Pain, Routine 2019 (Given - Provider: Yun White RN) 05 (Given - Provider: Yun White RN)182 (Given - Provider: Lang Burns RN)230 (Given - Provider: Opal Silva, KENN) 0552 (Given - Provider: Nadege Owens, KENN)120 (Given - Provider: Mounika Aldana, KENN) ramelteon (ROZEREM) tablet 8 mg 8 mg, oral, AT BEDTIME PRN, Starting on 05/08/22 at 0116, Until Tu05/11/22 at 1417, Sleep, Routine documented in this encounter Orders Medications Ordered That Luc ht Not Have Been Administered Count Last Ordered Date First Ordered Date furosemide (LASIX) tablet 20 mg 1 2 acetaminophen (TYLENOL) tablet 500 mg 1 albuterol inhaler 180 mcg 1 05/08/2022 enoxaparin (LOVENOX) injection 40 mg 1 04/21 glycerin (adult) suppository 1 Suppository 1 05/08/2022 lidocaine (PF) 10 mg/mL (1 % ) injection 2 mg 1 05/08/2022 polyethylene glycol 3350 (TX RALAX) packet 17 g 2 05/08/2022 ipratropium-albuteroL (DUONE B) 0.5 mg-3 mg(2.5 mg base)/3 mL nebulizer solution 3 mL 1 05/07/2022 Lab Orders Without Results Count Last Ordered D ate First Ordered Date BASIC METABOLIC PANEL (BMP) 1 05/11/2022 IV Count Last Ordered Date First Orde red Date IV REQUEST 1 05/09/2022 Admission Count Last Ordered Date First Orde red Date ADMIT TO INPATIENT 1 05/07/2022 Transfer Count Last Ordered Date First Orde red Date ED BED REQUEST 1 05/07/2022 Discharge Count Last Ordered Date First Orde red Date DISCHARGE PATIENT 1 05/11/2022 documented in this encounter Additional Health Concerns Infection Onset Date Last Indicated Resolved Time R/O COVID-19 Comment:Neg test 05/07/2022 05/07/2022 05/07/2022 15:57 EDT documented as of this encounter Care Teams Video Tape Transferrer Relationship Specialty Start Date End Date Emigdio Veronica MD [address] [place] [phone] PCP - General Internal Medicine - Primary Care 05/22/20 02/21/24 Starr Paige MD [address] [place] [address] Hematology 10/08/21 06/09/22 Dana Padilla MD [address] [place] [address], [facility] [address] [place] [phone] Hematology 01/13/22 06/09/22 documented as of this encounter
--- OUTSIDE RECORDS SUMMARY | 2024-11-22 17:04 | XMS_ITS | Encounter Summary ---
Author Organization [facility] Address [address] [place] [address] Care Team Providers Care Foundry Engineer Name Role Phone Emigdio Veronica MD Primary Care Provider + Starr Paige MD Unavailable [phone] Dana Padilla MD Unavailable Izabella Snowden [facility] Unavailable [phone] None, Provider Primary Care Provider UnavailGabriel Dacosta Primary Care Provider Mirna Guerrero Primary Care Provider + Reason for Visit * Reason Comments Other Encounter Details Date Type Department Care Team (Late st Contact Info) Description 05/04/2022 [facility] Adult Primary Care - [place] [address] [place] [address] Emigdio Veronica MD [address] [place] [phone] Other Social History Tobacco Use [...] 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 [...] Otilio Romero RN documented in this encounter Plan of Treatment Upcoming Encounters Date Type Department Care Team (Late st Contact Info) Description 01/04/2025 13:00 EST Office Visit [facility] Ophthalmology - [address] [phone] Gagandeep Rome MD [address] [place] [address] [address] [place] [phone] 02/11/2025 13:30 EDT Telemedicine [facility] Hematology & Oncology [address] [phone] Dana Padilla MD [address] [place] [address] [address] [place] [phone] documented as of this encounter [...] documented as of this encounter Care Teams Foundry Engineer Relationship Specialty Start Date End Date Emigdio Veronica MD [address] [place] [phone] PCP - General Internal Medicine - Primary Care 05/22/20 02/21/24 None, Provider PCP - General 02/24/24 03/18/24 Gabriel Gandara PA PCP - General 03/19/24 09/11/24 Mirna Guerrero PA [address] [place] [id number] PCP - General 09/12/24 Starr Paige MD [address] [place] [phone] Hematology 10/08/21 06/09/22 Dana Padilla MD [address] [facility] [place] [address] Hematology 01/13/22 06/09/22 Izabella Snowden, [facility] [address] [place] [address], [address] [place] [phone] Cheese Cook 02/21/23 05/03/24 documented as of this encounter
--- OUTSIDE RECORDS SUMMARY | 2024-11-22 17:04 | XMS_ITS | Encounter Summary ---
Author Organization [facility] Address [address] [place] [address] Care Team Providers Care Application Integration Architect Name Role Phone Emigdio Veronica MD Primary Care Provider + Starr Paige MD Unavailable [phone] Dana Padilla MD Unavailable Encounter Details Date Type Department Care Team (Late st Contact Info) Description 05/19/2022 12:45 EDT Phlebotomy Only [facility] - [address] [address] [facility] Portal vein thrombosis; Upper GI bleed; Anasarca; Acute on chronic heart failure with preserved ejection fraction (HCC-CMS) (HCC); 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 (HCC-CMS) (HCC); Other cirrhosis of liver (HCC) (HCC-CMS); Thrombocytopenia (HCC-CMS) (HCC) Social History Tobacco Use Types Packs/Day Years [...] 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 Not [...] Date of Assessment Author No 05/08/2022 1:00 EDRe Spencer RN * Are you blind or do [...] of Assessment Author No 05/08/2022 1:00 Re Smart, KENN * Because of a physical, mental, [...] Re Kamara RN documented in this encounter Plan of Treatment Upcoming Encounters Date Type Department Care Team (Late st Contact Info) Description 01/04/2025 13:00 EST Office Visit [facility] Ophthalmology - [address] [phone] Gagandeep Rome MD [address] [place] [address] 5 [place] [phone] 02/11/2025 13:30 EDT Telemedicine [facility] Hematology & Oncology - [address] [phone] Dana Padilla MD [address] [place] [address] 2 [place] [phone] documented as of this encounter Procedures Procedure Name Priority Date/Time Associated Diagnosis Comments COMPLETE BLOOD COUNT Routine 05/19/2022 12:41 EDT Portal vein thrombosis Upper GI bleed COMPREHENSIVE METABOLIC PANEL (CMP) Routine 05/19/2022 12:41 EDT Other cirrhosis of liver (HCC) (HCC-CMS) documented in this encounter Results * (ABNORMAL) COMPREHENSIVE METABOLIC PANEL (CMP) (05/19/2022 12:41 EDT) Sodium 140 136 - 145 mmol/L 05/19/2022 14:32 EDT [facility] Potassium 3.9 3.5 - 5.0 mmol/L 05/19/2022 14:32 [facility] Chloride 104 96 - 110 mmol/L 05/19/2022 14:32 [facility] CO2 Total 28 22 - 32 mmol/L 05/19/2022 14:32 [facility] Glucose 94 70 - 100 mg/dL 05/19/2022 14:32 [facility] BUN 17 10 - 26 mg/dL 05/19/2022 14:32 [facility] Creatinine 1.09(H) 0.52 - 1.04 mg/dL 05/19/2022 14:32 [facility] eGFR 58(L) >60 mL/min/1.7 3m2 05/19/2022 14:32 [facility] Total Protein 7.0 6.3 - 8.2 g/dL 05/19/2022 14:32 [facility] Albumin 4.0 3.4 - 4.9 g/dL 05/19/2022 14:32 [facility] Alkaline Phosphatase 124 38 - 126 U/L 05/19/2022 14:32 [facility] AST 24 15 - 46 U/L 05/19/2022 14:32 [facility] ALT 14 <35 U/L 05/19/2022 14:32 [facility] Bilirubin, Total 0.6 <1.4 mg/dL 05/19/20 14:32 [facility] Calcium 8.7 8.5 - 10.5 mg/dL 05/19/2022 14:32 [facility] Albumin/Globulin Ratio 1.3 1.0 - 2.5 05/19/2022 14:32 [facility] Anion Gap 8 5 - 14 05/19/2022 14:32 [facility] Blood VENOUS BLOOD / Unknown Venipuncture / Unknown 05/19/2022 12:41 EDT 05/19/2022 12:41 EDT us Emigdio Veronica MD CHEMISTRY & BLOOD GAS OR DERABLES Final Result Performing Organization Address City/[facility]/ZIP Co de Phone Number [facility] [address] [place] [address] * (ABNORMAL) COMPLETE BLOOD COUNT (05/19/2022 12:41 EDT) WBC 4.56 4.00 - 12.40 K/cmm 05/19/2022 14:05 T [facility] RBC 4.07 3.86 - 5.04 M/cmm 05/19/2022 14:05 [facility] Hemoglobin 11.7 11.6 - 15.2 gm/dL 05/19/2022 14:05 T [facility] HCT 34.9 34.9 - 44.4 % 05/19/2022 14:05 [facility] MCV 86 81 - 98 fl 05/19/2022 14:05 [facility] MCH 28.7 26.7 - 33.3 pg 05/19/2022 14:05 [facility] MCHC 33.5 32.1 - 35.9 gm/dL 05/19/2022 14:05 [facility] RDW-CV 14.6 <14.7 % 05/19/2022 14:05 [facility] RDW-SD 45.8 <50.4 fl 05/19/2022 14:05 [facility] PLT 124(L) 141 - 377 K/cmm 05/19/2022 14:05 [facility] MPV 9.9 9.5 - 12.7 fl 05/19/2022 14:05 [facility] Blood VENOUS BLOOD / Unknown Venipuncture / Unknown 05/19/2022 12:41 EDT 05/19/2022 12:41 EDT us Dana Padilla MD HEMATOLOGY & PF4 ORDERABLES Pricila l Result Performing Organization Address City/[facility]/ZIP Co de Phone Number [facility] [address] [place] [address] documented in this encounter Visit Diagnoses Diagnosis Portal vein thrombosis Upper GI bleed Hemorrhage of gastrointestinal tract, unspecified Anasarca Edema Acute on chronic heart failure with preserved ejection fraction (HCC-CMS) 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 (HCC-CMS) Other chronic nonalcoholic liver disease Other cirrhosis of liver (HCC-CMS) Thrombocytopenia (HCC-CMS) Thrombocytopenia, unspecified documented in this encounter Care Teams Application Integration Architect Relationship Specialty Start Date End Date Emigdio Veronica MD [address] [place] [phone] PCP - General Internal Medicine - Primary Care 05/22/20 02/21/24 Starr Paige MD [address] [place] [phone] Hematology 10/08/21 06/09/22 Dana Padilla MD [address] [place] [address] 2 [place] [phone] Hematology 01/13/22 06/09/22 documented as of this encounter
--- OUTSIDE RECORDS SUMMARY | 2024-11-22 17:04 | XMS_ITS | Encounter Summary ---
Author Organization 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 Order Details Dose: 5 mg Route: oral Frequency: 3 TIMES DAILY PRN for Pain Dispense Quantity: 84 Tablet Refills: 0 ?? Sig: Take 1 Tablet by mouth 3 times daily as needed for up to 28 days for Pain. ??Daily Max: 15 mg ?? Start Date: 04/14/22 End Date: 05/12/22 Written Date: 04/12/22 Expiration Date: 07/11/22 Earliest Fill Date: 04/14/22 Reviewed POD's message with pt- no available appointments today or tomorrow. She will go to the tomorrow for evaluation, does not have transportation today. Also needs refill of oxy- pended Next visit-06/11 Last visit-04/23/22 * Telephone Encounter - Karol Foy PA-C - 05/06/2022 4473 EDT If painful and erythema of legs - really needs to have this evaluated. Please schedule office visitto evaluate. Her GFR was 54 at last check last week. Already on diuretic, may need more but also need to r/o infection as well. * Telephone Encounter - Cris Stoll RN - 05/06/2022 1344 EDT Spoke with pt- see below tele enc from 04/28. She reports weight gain of 9 lbs in the past week. Has bilateral leg swelling- reports her legs from the knees down are painful and very red. Denies any difficulty breathing. She is currently taking spirolactone 50mg daily and lasix 20mg daily. * Telephone Encounter - Cris Stoll RN - 05/06/2022 1342 EDT Images from the original note were not included. Per 04/28 tele enc- Emigdio Veronica MD ?? 16:49 Note I am glad to hear that her weights have come down. I would recommend returning to her baseline diuretic dosage of 50 mg of spirolactone and 20 mg of lasix daily. ?? She should continue to track her weights. ?? Agree with OV in 6 weeks. ?? * Telephone Encounter - Cris Copeland - 05/06/2022 1256 EDT Reason for Call: Leg Swelling Summary/Symptoms: Pt states she is having trouble again with leg swelling. States beet red and warm. Put weight back on Onset and Duration: recent/ongoing Does the patient have a computer, laptop or smart phone with high speed & video capability? N/A If so, would they be interested in doing a video visit via Zoom? N/A Appointment Offered? No Cris Copeland 05/06/2022 12:56 documented in this encounter Plan of Treatment Upcoming Encounters Date Type Department Care Team (Late st Contact Info) Description 01/04/2025 13:00 EST Office Visit [facility] Ophthalmology - [address] [phone] Gagandeep Rome MD [address] [place] [address] 5 [place] [phone] 02/11/2025 13:30 EDT Telemedicine [facility] Hematology & Oncology - [address] [phone] Dana Padilla MD [address] [place] [phone] documented as of this encounter Visit Diagnoses Not on filedocumented in this encounter Discontinued Medications Medication Sig Discontinue Reason Start Date End Da te oxyCODONE (ROXICODONE) 5 mg immediate release tablet Take 1 Tablet by mouth 3 times daily as needed for up to 28 days for Pain. Daily Max: 15 mg Reorder 04/14/2022 05/06/2022 documented as of this encounter Additional Health Concerns Infection Onset Date Last Indicated Resolved Time R/O COVID-19 Comment:Neg test 05/07/2022 05/07/2022 05/07/2022 15:57 EDT documented as of this encounter Care Teams Coremaking Machine Setter Relationship Specialty Start Date End Date Emigdio Veronica MD [address] [place] [phone] PCP - General Internal Medicine - Primary Care 05/22/20 02/21/24 Starr Paige MD [employer] [address] [place] [phone] Hematology 10/08/21 06/09/22 Dana Padilla MD [address] [place] [address] 2 [place] [phone] Hematology 01/13/22 06/09/22 documented as of this encounter
--- OUTSIDE RECORDS SUMMARY | 2024-11-22 17:04 | XMS_ITS | Encounter Summary ---
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 [...] Answer Date of Assessment Author No 05/07/2022 14:36 EDT Jess Gallardo RN * Are you blind or do [...] Office Visit [facility] Ophthalmology - [address] [phone] Gagandeep Rome MD [address] [place] [address], [facility] [address] [place] [phone] 02/11/2025 13:30 EDT Telemedicine [facility] Hematology & Oncology - [address] [address] Dana Padilla MD [address] [place] [phone] documented as of this encounter Visit Diagnoses Not on filedocumented in this encounter Additional Health Concerns Infection Onset Date Last Indicated Resolved Time R/O COVID-19 Comment:Neg test 05/07/2022 05/07/2022 05/07/2022 15:57 EDT documented as of this encounter Care Teams Supervisor Shuttle Fitting Relationship Specialty Start Date End Date Emigdio Veronica MD [address] [place] [phone] PCP - General Internal Medicine - Primary Care 05/22/20 02/21/24 Starr Paige MD [address] [place] [phone] Hematology 10/08/21 06/09/22 Dana Padilla MD [address] [place] [phone] Hematology 01/13/22 06/09/22 documented as of this encounter
--- OUTSIDE RECORDS SUMMARY | 2024-11-22 17:05 | XMS_ITS | Encounter Summary ---
Author Organization [facility] Address [address] [place] [address] Care Team Providers Care Data Analytics Specialist Name Role Phone Emigdio Veronica MD Primary Care Provider + Starr Paige MD Unavailable [phone] Dana Padilla MD Unavailable Encounter Details Date Type Department Care Team (Late st Contact Info) Description 04/02/2022 Community Health Team [facility] - [place] [address] [place] [address] Izabella Snowden, BANK RECONCILIATOR [address] [facility], [address] [place] [address] Social History Tobacco Use Types Packs/Day Years Used Date Smoking Tobacco: Some Days Cigarettes 0.3 35 Started: 08/20/1981; Last attempted to quit: 08/20/2016 Smokeless Tobacco: Never Comments:one to two cigarett es per week, 01/11/22- Alcohol Use Standard Drinks/Week Comments No 0 [...] 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 TOPIC OF CONVERSATION: ??? Engaged patient in conversation related to positive behavior change, self- management, goal setting and action planning using motivational interviewing and active listening. ??? Patient reports that she recently was dx with Covid-she has recovered and is testing negative. ??? She also reports that she had a sleep study consult yesterday which went well. ??? Patient is aware of [facility] transports and has utilized in the past but feels that they are inconsistent with their timing so doesn't like to use. ??? Discussed counseling services and the possibility of doing telephone counseling-SW will reach out to Harris Izaguirre to confirm. Patient gave verbal permission to share with provider her contact information. I will update patient once this is confirmed. Patient Identified SMART Goal:..Patient will begin outpatient counseling once it is confirmed that provider can accommodate phone sessions. PLAN: ??? SW to reach out to [facility] Barger to confirm he can do telephone sessions. ??? SW will update patient once confirmed. .. Adult Primary Care [address], [address], [place] Total Time: 15 minutes phone call, 15 minutes documentation Referral: Pending Follow up: As Needed Status: Active documented in this encounter Plan of Treatment Upcoming Encounters Date Type Department Care Team ([facility] st Contact Info) Description 01/04/2025 13:00 EST Office Visit [facility] Ophthalmology - [address] [address] Gagandeep Rome MD [address] [facility], Level [address] [place] [phone] 02/11/2025 13:30 EDT Telemedicine [facility] Hematology & Oncology - [address] [phone] Dana Padilla MD [address] [place] [phone] documented as of this encounter Visit Diagnoses Not on filedocumented in this encounter Care Teams Data Analytics Specialist Relationship Specialty Start Date End Date Emigdio Veronica MD [address] [place] [phone] PCP - General Internal Medicine - Primary Care 05/22/20 02/21/24 Starr Paige MD [address] [place], [place] [phone] Hematology 10/08/21 06/09/22 Dana Padilla MD [address] [place] [phone] Hematology 01/13/22 06/09/22 documented as of this encounter
--- OUTSIDE RECORDS SUMMARY | 2024-11-22 17:05 | XMS_ITS | Encounter Summary ---
Author Organization [facility] Address [address] [place] [address] Care Team Providers Care Marker Hand Name Role Phone Emigdio Veronica MD Primary Care Provider + Starr Paige MD Unavailable Dana Padilla MD Unavailable Reason for Referral * Sleep Study (Routine/Next Available) - Closed Specialty Diagnoses / Procedures Referred By Serene huitron Referred To Contact Sleep Medicine Diagnoses Nocturnal hypoxia HUEY (obstructive sleep apnea) Procedures SPLIT NIGHT POLYSOMNOGRAM (DIAGNOSTIC POLYSOMNOGRAM WITH SPLIT TO CPAP/BIPAP TITRATION) Vivian Black MD Phone: tel: fax: [facility] Sleep [facility] - [address] [address] Phone: tel: fax: Referral ID Status Reason Start Date Expiration Date Visits Re quested Visits Authorized [id number] Closed 03/31/2022 11/20/2022 1 1 Reason for Visit * Reason Comments New Patient Visit * Consult (See Order Priority) - Order Cancelled Specialty Diagnoses / Procedures Referred By Serene huitron Referred To Contact Sleep Medicine Diagnoses HUEY (obstructive sleep apnea) Emigdio Veronica MD Phone: tel: fax: [facility] [address] [address] Phone: tel: fax: Referral ID Status Reason Start Date Expiration Date Visits Requested Visits Authorized [id number] Order Cancelled Specialty Services Required 02/17/2022 1 1 Encounter Details Date Type Department Care Team (Late st Contact Info) Description 03/31/2022 14:00 EDT Office Visit [facility] Sleep [facility] [address] [address] Vivian Black MD [address] [place] [address], Level 2 [place] [phone] Nocturnal hypoxia (Primary Dx); HUEY (obstructive sleep apnea) Social History Tobacco [...] 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 file Not on file Not o n file documented as of this encounter Last Filed Vital Signs Vital Sign Reading Time Taken Comments Blood Pressure 110/70 03/31/2022 1401 EDT Pulse 90 03/31/2022 1401 EDT Temperature - - Respiratory Rate 16 03/31/2022 1401 EDT Oxygen Saturation 97% 03/31/2022 1401 EDT Inhaled Oxygen Concentration - - Weight 107 kg (236 lb) 03/31/2022 1401 EDT Height - - Body Mass Index 40.49 02/10/2022 1824 EDT documented in this encounter Functional Status [...] Progress Notes * Vivian Black MD - 03/31/2022 1400 EDT SLEEP MEDICINE CONSULT/EVALUATION REASON FOR CONSULTATION: Nocturnal hypoxia obstructive sleep apnea HPI: Tara Yun is a 61 y.o. female with previous medical history significant for chronic pain syndrome, chronic respiratory failure with hypoxia, out,copt, hypothyroidism cirrhosis, and peptic ulcerdisease and obesity (Body mass index is 40.49 kg/m??.) who presents for sleep evaluation with concerns noted above Patient underwent baseline polysomnographic testing November 27, 2020, results of the study were reviewed today and demonstrated evidence of mild obstructive sleep apnea AHI of 5.1 with lowest oxygen saturation of 82% and average oxygen saturation of 91% with total of 66.6 minutes spent with oxygen saturation below 88%. Study was carried out with oxygen supplementation:On supplemental O2 patients O2 saturation trended toward low 90s at 2 lpm and high 80s at 1 lpm. When off supplemental O2 oxygen saturation ran in low 80s CPAP machine was requested in February 2022, insurance did not accepted the request she was informed that she needs a repeat sleep study. Has been using 2 L O2 supplementation used to be up to 3 L, but not every night Usually 5 out of 7 nights. Does not feel any benefit from this therapy has significantly disrupted sleep and excessive daytime sleepiness. 30 years ago was on CPAP therapy for 1 year discontinued when she moved away. curentry admits smoking occasionally 1 to 2 cigarettes Sleep history Schedule Tara Yun is usually goes to bed at 7-8pm ; and requires on average few min to fall asleep but only sleeps in 45-60 min intervals. Tara Yun reports an average of 6-7 awakenings per night; due to pain, and requiring 30 min after awakenings to resume sleep. Wakes up between 5-6 am. Tara Yun estimates total sleep time at 4 hours nightly Patient reports daily naps , duration 30-60 min at 2pm ESS score 22/24 today giving 1 points to propensity to doze while driving. Respiratory Tara Yun reports many years of symptoms concerning for sleep apnea; getting progressively worse over time: -endorses snoring, snort respirations and observed breathing pauses during sleep. -occasional headaches. -Snoring is exacerbated in the supine sleeping position. Uses wedge needs to have feet up - There are complains of bruxism. -There are symptoms of GERD -There are complains of dry mouth on arousals/waking up. Abnormal sleep behaviors/movements/parasomnias Tara Doug Yun denies other sleep disturbances or parasomnias including restless leg syndrome, excessive limb movements of sleep, nightmares, dream enactment behaviors, sleep hallucinations, sleep paralysis, REM intrusions, Hypnopompic hallucinations or cataplexy. History of sleepwalking as a child Family sleep history: denies Patient Active Problem List Diagnosis ??? Pancytopenia [...] ??? Abdominal pain ??? LUQ abdominal pain Past Surgical History: Procedure Laterality Date ??? APPENDECTOMY ??? BONE MARROW BIOPSY ??? CHOLECYSTECTOMY ??? CYSTOSCOPY 12/03/2020 ??? GASTRIC FUNDOPLICATION 198912/02/2020 - confirmed by pt ??? HERNIA REPAIR ??? HYSTERECTOMY ??? JOINT REPLACEMENT Bilateral with multiple revisions of both knees ??? KNEE SURGERY Bilateral ??? OTHER SURGICAL HISTORY splenic embolization ??? TONSILLECTOMY ??? UPPER GASTROINTESTINAL ENDOSCOPY multiple ??? WRIST SURGERY Right after fracture Current Outpatient Medications Medication ??? albuterol 90 mcg/actuation inhaler ??? ferrous sulfate 324 mg (65 mg iron) tablet,delayed release (DR/EC) ??? furosemide (LASIX) 20 mg tablet ??? levothyroxine (SYNTHROID) 25 mcg tablet ??? mupirocin (BACTROBAN) 2 % ointment ??? naloxone (NARCAN) 4 mg/actuation nasal spray ??? ondansetron (ZOFRAN) 4 mg tablet ??? oxyCODONE (ROXICODONE) 5 mg immediate release tablet ??? OXYGEN-AIR DELIVERY SYSTEMS MISC ??? pantoprazole (PROTONIX) 40 mg tablet ??? sertraline (ZOLOFT) 100 mg tablet ??? spironolactone (ALDACTONE) 50 mg tablet ??? sucralfate (CARAFATE) 1 gram tablet ??? SYMBICORT 160-4.5 mcg/actuation HFA aerosol inhaler inhaler ??? traZODone (DESYREL) 100 mg tablet No [...] ??? Prochlorperazine ??? Reglan [Metoclopramide Hcl] Rash Social History Socioeconomic History ??? Marital status: Single Spouse name: Not on file ??? Number of children: 3 ??? Years of education: Not on file ??? Highest education level: Not on file Occupational History ??? 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 Smoking status: Current Some Day Smoker Packs/day: 0.25 Years: 35.00 Pack years: 8.75 Types: Cigarettes Last attempt to quit: 08/20/2016 Years since quittin.6 ??? Smokeless tobacco: Never Used ??? Tobacco comment: one to two cigarettes per week, 01/11/22- Vaping Use ??? Vaping Use: Never used Substance and Sexual Activity ??? Alcohol use: No ??? Drug use: Not Currently Types: Marijuana ??? Sexual activity: Yes Partners: Male control/protection: Surgical Other Topics Concern ??? Not on file Social History Narrative Rents a room from friends in [place] and lives there with her dog. She is disabled. 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 No unintentional weight loss. Eyes: No vision changes, eye pain or eye discharge. Ears, nose and throat: No hearing loss, ear pain. Otherwise as per HPI. Cardiovascular: No chest pain, palpitations or exertional dyspnea. Respiratory: mild shortness of breath or wheezing. Otherwise as per HPI. Musculoskeletal: No visualized functional deficits or obvious deformities. Neuro: No obvious deficits. Psych: No clinical/Established diagnosis of depression/anxiety. Skin: No visualized rashes. Allergic: As per allergy profile. Vitals: 03/31/22 1401 BP: 110/70 BP Cuff Location: Left arm BP Patient Position: Sitting BP Cuff Sizes: Adult, large Pulse: 90 Resp: 16 SpO2: 97% Weight: (!) 107 kg (236 lb) Body mass index is 40.49 kg/m??. PHYSICAL EXAM: GENERAL: Well groomed. Appears stated age. HEENT: Normocephalic, atraumatic. No conjunctival erythema. No scleral icterus. External ears symmetric without lesions or deformity. no retro- or micrognathia. Nasal airways appear nonobstructive Pharyngeal exam Mallampati 4 Odontolous with few teeth in place, needing dental care Tonsils removed in childhood Neck circumference is 44.5 cm HEART: No apparent acute cardiovascular compromise. LUNGS: expiratory wheezing EXTREMITIES: No visualized deformities. MUSCULOSKELETAL: Normal mobility. No visualized deformities. NEURO: Alert, oriented x 3. Extraocular movements intact, face moves symmetrically tongue is midline Motor exam demonstrates normal bulk and tone and full ROM over upper and lower extensor flexor muscles DTR trace over lower ext Cerebellar: No ataxia observed SKIN: No visualized rashes. Lower extremity edema bilat PSYCH: Appropriate affect. Maintained eye contact. ASSESSMENT/PLAN: Tara Yun is a 61 y.o. year old female presenting with history of obstructive sleep apnea andnocturnal hypoxia now on supplemental 2 L of oxygen who requires repeat sleep study for stratification and determination of optimal therapy. Based on previous study she will likely require oxygen Supplementation to be bled into PAP. Split sleep study has been ordered today - The rationale behind treating sleep disordered breathing in respect to both, symptom control and risk reduction discussed with the patient. - The patient was educated on pathophysiology of sleep apnea and cardiovascular and neurological risks associated with untreated condition. - Correlation between excessive weight and sleep disordered breathing revised. - The patient is agreeable to proceed with testing as advised. Follow up plan - The patient will be notified by the staff at the [facility] of the results of the test. DISPOSITION: Tara Yun will return to the sleep clinic upon completion of the sleep study; sooner as/if indicated. The patient verbalized understanding and agreement with the above and was encouraged to contact me with any questions/concerns in the interim. Total time spent in [id number] visit, reviewing patient's chart, organizing patient's care and completing medical charting exceeded 45 minutes. Vivian Black [facility] Department of Neurology Sleep Program documented in this encounter Plan of Treatment Upcoming Encounters Date Type Department Care Team (Late st Contact Info) Description 01/04/2025 13:00 EST Office Visit [facility] Ophthalmology - [address] [address] Gagandeep Rome MD [address] [place] [address], Level 5 [place] [phone] 02/11/2025 13:30 EDT Telemedicine [facility] Hematology & Oncology - [address] [phone] Dana Padilla MD [address] [place] [phone] Scheduled Orders Name Type Priority Associated Diagnoses Orde r Schedule SPLIT NIGHT POLYSOMNOGRAM (DIAGNOSTIC POLYSOMNOGRAM WITH SPLIT TO CPAP/BIPAP TITRATION) Sleep Center Routine Nocturnal hypoxia HUEY (obstructive sleep apnea) Ordered: 03/31/2022 documented as of this encounter Visit Diagnoses Diagnosis Nocturnal hypoxia- Primary Hypoxemia HUEY (obstructive sleep apnea) Obstructive sleep apnea (adult) (pediatric) documented in this encounter Care Teams Marker Hand Relationship Specialty Start Date End Date Emigdio Veronica MD [address] [place] [phone] PCP - General Internal Medicine - Primary Care 05/22/20 02/21/24 Starr Paige MD [facility] [address] [place], [place] [phone] Hematology 10/08/21 06/09/22 Dana Padilla MD [address] [place] [phone] Hematology 01/13/22 06/09/22 documented as of this encounter
--- OUTSIDE RECORDS SUMMARY | 2024-11-22 17:05 | XMS_ITS | Encounter Summary ---
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 pantoprazole (PROTONIX) 40 mg tablet [Pharmacy Med Name: PANTOPRAZOLE SOD DR 40 MG TAB] 30 Tablet 3 Sig: TAKE 1 TABLET BY MOUTH TWICE A DAY Pharmacy: [facility] Last Refill Date: 01/05/22 Last Visit Date: 02/17/22 Next Non-Acute Visit Date Scheduled with Care Team: 03/23/2022 FATOUMATA GREEN RN 03/22/2022 13:21 documented in this encounter Plan of Treatment Upcoming Encounters Date Type Department Care Team (Late st Contact Info) Description 01/04/2025 13:00 EST Office Visit [facility] Ophthalmology - [address] [phone] Gagandeep Rome MD [address] [place] [address] [address] [place] [phone] 02/11/2025 13:30 EDT Telemedicine [facility] Hematology & Oncology [address] [address] Dana Padilla MD [address] [place] [address], [facility] [address] [place] [phone] documented as of this encounter Visit Diagnoses Not on filedocumented in this encounter Discontinued Medications Medication Sig Discontinue Reason Start Date End Da te pantoprazole (PROTONIX) 40 mg tablet Take 1 Tablet by mouth 2 times daily. 01/05/2022 03/22/2022 documented as of this encounter Care Teams Analysis Or Research Safety Inspector Relationship Specialty Start Date End Date Emigdio Veronica MD [address] [place] [phone] PCP - General Internal Medicine - Primary Care 05/22/20 02/21/24 Starr Paige MD [address] [place] [phone] Hematology 10/08/21 06/09/22 Dana Padilla MD [address] [facility] [address] [place] [phone] Hematology 01/13/22 06/09/22 documented as of this encounter
--- OUTSIDE RECORDS SUMMARY | 2024-11-22 17:05 | XMS_ITS | Encounter Summary ---
Author Organization [facility] Address [address] [place] [address] Care Team Providers Care Tyre Retreader Name Role Phone Emigdio Veronica MD Primary Care Provider + Starr Paige MD Unavailable [phone] Dana Padilla MD Unavailable Reason for Visit * Reason Onset Date Comments Follow-up 04/12/2022 04/10/22 ED visit for fall Encounter Details Date Type Department Care Team (Late st Contact Info) Description 04/12/2022 Telephone [facility] Adult Primary Care - [place] [address] [place] [address] Emigdio Veronica MD [address] [place] [phone] Follow-up (04/10/22 ED visit for fall) Social History Tobacco Use Types Packs/Day Years Used Date Smoking Tobacco: Some Days Cigarettes 0.3 35 Started: 08/20/1981; Last attempted to quit: 08/20/2016 Smokeless Tobacco: Never Comments:one to two cigarett es per week, 01/11/22- Alcohol Use Standard Drinks/Week Comments No 0 (1 standard drink = 0.6 oz pur e alcohol) Overall Financial Resource Strain (CARDIA) Alyssa r Date Recorded How hard is it [...] 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 No / Unsure 04/10/2022 6:45 EDT documented as of this encounter Functional [...] No 02/10/2022 18:24 EDT Otilio Dawson RN * Because of a physical, mental, [...] Daily Max: 15 mg 2 Tablet 04/13/2022 08/19/2022 documented in this encounter Miscellaneous Notes * Telephone Encounter - Ashley Weems - 04/12/2022 1102 EDT Pt notified of new script to cover her 04/13/22 oxycodone needs. * Telephone Encounter - Emigdio Veronica MD - 04/12/2022 1040 EDT This is an early refill request. She should not be due for a refill until 04/14/22. This is her second early refill request within the last 4 months. Patient has a documented history of drug seeking behavior and has misconstrued her opiate consumption to several providers previously. Her reports of only taking two tablets a day are inconsistent with an 84 tablet supply for a 28 day period. I will authorize 2 additional tablets. She may have to pay out of pocket for these tablets given the early refill. We will have to discuss this refill pattern much more in depth at our next encounter. I will not be authorizing additional early refill requests going forward. * Telephone Encounter - Ashley Weems - 04/12/2022 0942 EDT We see you were in the Emergency Department for fall ( due to pain and numbness feel in her legs ) on 04/10/22 How are you feeling/symptoms improving? Yes Do you have any questions? Needs more pain medication, running out today- takes 2 tab of the 5 mg oxycodone a day. Needs 2 tab for tomorrow. New Rx is set to start on 04/14/22 Can we schedule a follow up visit? No: she has ov on 04/23/22 , which she intends to keep documented in this encounter Plan of Treatment Upcoming Encounters Date Type Department Care Team (Late st Contact Info) Description 01/04/2025 13:00 EST Office Visit [facility] Ophthalmology - [address] [phone] Gagandeep Rome MD [address] [place] [address], [facility] [address] [place] [phone] 02/11/2025 13:30 EDT Telemedicine [facility] Hematology & Oncology - [address] [phone] Dana Padilla MD [address] [place] [address], [facility] [address] [place] [phone] documented as of this encounter Visit Diagnoses Not on filedocumented in this encounter Care Teams Tyre Retreader Relationship Specialty Start Date End Date Emigdio Veronica MD [address] [place] [phone] PCP - General Internal Medicine - Primary Care 05/22/20 02/21/24 Starr Paige MD [address] [place] [phone] Hematology 10/08/21 06/09/22 Dana Padilla MD [address] [place] [address] [address] [place] [phone] Hematology 01/13/22 06/09/22 documented as of this encounter
--- OUTSIDE RECORDS SUMMARY | 2024-11-22 17:05 | XMS_ITS | Encounter Summary ---
Author Organization [facility] Address [address] [place] [address] Care Team Providers Care Radio Time Buyer Name Role Phone Emigdio Veronica MD Primary Care Provider + Starr Paige MD Unavailable [phone] Dana Padilla MD Unavailable Reason for Visit * Reason Comments Fall Per pt her legs felt numb when she was sitting down in a chair and she struck the ground. denies LOC and head and neck pain. c/o lower back pain for 1 year which has been steadily worsening. 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 No / Unsure 04/10/2022 6:45 EDT documented as of this encounter Last Filed Vital Signs Vital Sign Reading Time Taken Comments Blood Pressure 111/65 04/10/2022 0644 EDT Pulse 81 04/10/2022 0644 EDT Temperature 36.5 ??C (97.7 ??F) 04/10/2022 0644 EDT Respiratory Rate 18 04/10/2022 0644 EDT Oxygen Saturation 100% 04/10/2022 0644 EDT Inhaled Oxygen Concentration - - Weight [...] Otilio Romero RN documented in this encounter Discharge Instructions * Discharge Instructions* Heike Valdez PA-C - 04/10/2022 10:33 EDT You were seen in the ED for your back pain Your exam was reassuring You can take your oxycodone that you are prescribed We are sending a prescription for the muscle relaxant to your pharmacy Unfortunately because you are prescribed oxycodone by your PCP, we cannot provide an additional prescription Return to the ED with any new or worsening symptoms, including but not limited to, worsening pain, if you have a bowel movement or urinate without knowing it, can't move your leg or any other symptoms that you think warrant emergent evaluation documented in this encounter Medications at Time [...] needed for Wheezing. 1 Inhaler 04/13/2021 3 ferrous sulfate 324 mg (65 mg iron) tablet,delayed release (DR/EC) Take 1 Tablet by mouth every 48 hours. 30 Tablet 3 11/11/2021 2 furosemide (LASIX) 20 mg tablet Take 1 Tablet by mouth daily. 90 Tablet 1 02/24/2022 2 levothyroxine (SYNTHROID) 25 mcg tablet Take 1 Tablet by mouth daily before breakfast. 90 Tablet 1 11/11/2021 2 methocarbamoL (ROBAXIN) 750 mg tablet Take 1 Tablet by mouth 3 times daily for 7 days. 21 Tablet 04/10/2022 2 mupirocin (BACTROBAN) 2 % ointment Apply 3 times a day for 1 week for painful sore on lower right leg. 30 g 09/18/2021 2 ondansetron (ZOFRAN) 4 mg tablet Take 1 Tablet by mouth every 8 hours as needed for Nausea. 30 Tablet 1 03/23/2022 2 oxyCODONE (ROXICODONE) 5 mg immediate release tablet Take 1 Tablet by mouth 3 times daily as needed for up to 28 days for Pain. Daily Max: 15 mg 84 Tablet 04/14/2022 2 pantoprazole (PROTONIX) 40 mg tablet TAKE [...] HFA aerosol inhaler inhalerIndicatio ns:COPD with asthma ([facility]) INHALE 2 PUFFS DIRECTED DAILY. 10.2 Each 1 11/09/2021 2 traZODone (DESYREL) 100 mg tablet Take 1 Tablet by mouth at bedtime. 90 Tablet 1 03/23/2022 2 documented as of this encounter Ordered Prescriptions Prescription Sig Dispense Quantity Refills Last Filled Start Date End Date methocarbamoL (ROBAXIN) 750 mg tablet Take 1 Tablet by mouth 3 times daily for 7 days. 21 Tablet 04/10/2022 04/17/2022 documented in this encounter Discharge Disposition Disposition Code Departure Means Destination Comment s Home or Self [facility] pt left ED via wheelchair documented in this encounter ED Notes * Jes Zamora RN - 04/10/2022 0745 EDT Pt medicated per JAN. Ambulated to bathroom with steady, slow gait, independently. * Heike Valdez PA-C - 04/10/2022 0706 EDT Images from the original note were not included. Emergency Department Note History Chief Complaint Patient presents with ??? Fall Per pt her legs felt numb when she was sitting down in a chair and she struck the ground. denies LOC and head and neck pain. c/o lower back pain for 1 year which has been steadily worsening. States has hx of clots in spleen and not taking thinners anymore, VSS HPI This is a 61 y.o. female with PMHx of NAFLD, cirrhosis c/b portal HTN, EV, thrombocytopenia, PUD, COPD on 2L, hypothyroidism, chronic pain, splenic vein thrombosis, depression who is presenting to the Emergency Department with fall. Patient reports he has had ongoing back pain for several months. She states she is prescribed oxycodone 5 mg twice a day. Today she tried to get out of a chair, felt like her legs were weak and too painful, and fell. She called 911 for further evaluation. She stateskime has blood clots in her spleen was previously anticoagulated. She denies any neck pain. She denies chest pain. She states she is chronically short of breath which has not changed. She endorses chronic nausea which she takes Zofran for. She denies any diarrhea. She denies any urinary symptoms. She denies bowel/bladder incontinence, saddle anesthesia, or new numbness. She states she has been seen by pain management before who recommended physical therapy. She denies history of back surgeries. Past Medical History NAFLD, cirrhosis c/b portal HTN, EV, thrombocytopenia, PUD, COPD on 2L, hypothyroidism, chronic pain, splenic vein thrombosis, depression Past Surgical History Past Surgical History: Procedure Laterality Date ??? [...] ??? WRIST SURGERY Right after fracture Social and Family History Social History Tobacco Use ??? Smoking status: Current Some Day Smoker Packs/day: 0.25 Years: 35.00 Pack years: 8.75 Types: Cigarettes Last attempt to quit: 08/20/2016 Years since quittin.6 ??? Smokeless tobacco: Never Used ??? Tobacco comment: one to two cigarettes per week, 01/11/22- Substance Use Topics ??? Alcohol use: No [...] Hx ??? Endometrial Cancer Neg Hx Medications Previous Medications ALBUTEROL 90 MCG/ACTUATION INHALER Inhale 1-2 Puffs as directed every 4 hours as needed for Wheezing. FERROUS SULFATE 324 MG (65 MG IRON) TABLET,DELAYED RELEASE (DR/EC) Take 1 Tablet by mouth every 48 hours. FUROSEMIDE (LASIX) 20 MG TABLET Take 1 Tablet by mouth daily. LEVOTHYROXINE (SYNTHROID) 25 MCG TABLET Take 1 Tablet by mouth daily before breakfast. MUPIROCIN (BACTROBAN) 2 % OINTMENT Apply 3 times a day for 1 week for painful sore on lower right leg. NALOXONE (NARCAN) 4 MG/ACTUATION NASAL SPRAY 0.1 mL by nasal route as needed for Opioid Reversal. Repeat every 2-3 minutes if not effective and overdose is suspected. (spray is harmless in excess). ONDANSETRON (ZOFRAN) 4 MG TABLET Take 1 Tablet by mouth every 8 hours as needed for Nausea. OXYCODONE (ROXICODONE) 5 MG IMMEDIATE RELEASE TABLET Take 1 Tablet by mouth 3 times daily as neededfor up to 28 days for Pain. Daily Max: 15 mg OXYGEN-AIR DELIVERY SYSTEMS MISC 2 L by misc (non-drug; combo route) route at bedtime. PANTOPRAZOLE (PROTONIX) 40 MG TABLET TAKE 1 TABLET BY MOUTH TWICE A DAY SERTRALINE (ZOLOFT) 100 MG TABLET Take 1 Tablet by mouth daily. SPIRONOLACTONE (ALDACTONE) 50 MG TABLET Take 1 Tablet by mouth daily. SUCRALFATE (CARAFATE) 1 GRAM TABLET Take 1 Tablet by mouth 4 times daily. SYMBICORT 160-4.5 MCG/ACTUATION HFA AEROSOL INHALER INHALER INHALE 2 PUFFS DIRECTED DAILY. TRAZODONE (DESYREL) 100 MG TABLET Take 1 Tablet by mouth at bedtime. Allergies Allergies Allergen Reactions ??? Metoclopramide Nausea [...] ??? Prochlorperazine ??? Reglan [Metoclopramide Hcl] Rash ROS Review of Systems Constitutional: Negative for chills and fever. Respiratory: Negative for cough and shortness of breath. Cardiovascular: Negative for chest pain and leg swelling. Gastrointestinal: Negative for abdominal pain, blood in stool, diarrhea, nausea and vomiting. Genitourinary: Negative for difficulty urinating, flank pain and urgency. Musculoskeletal: Positive for back pain. Negative for neck pain. Skin: Negative for rash. Neurological: Negative for dizziness, speech difficulty and light-headedness. Psychiatric/Behavioral: Negative for behavioral problems. All other systems reviewed and are negative. Physical Exam VS: BP 111/65 Pulse 81 Temp 36.5 ??C (97.7 ??F) Resp 18 SpO2 100% General: Awake female, in no acute distress HEENT: Normocephalic, atruamatic. EOMI. Nares patent. Neck: Supple, full ROM. Pulmonary: Lungs clear to auscultation bilaterally. No wheezes, rales, or rhonchi. Chest wall non-tender to palpation. Cardiovascular: Regular rhythm and rate. No murmur, rub, or gallop. GI: Abdomen soft, non-tender, non-distended. No rebound or guarding. MSK: Normal ROM of upper and lower extremities. No lower extremity edema. No deformities. Spine tender along the thoracic and lumbar spine. No step-off or deformity noted. Antalgic gait. Positive straight leg raise bilaterally. 2+ DP pulses. 2+ patellar reflexes. Neuro: Sensation to light touch intact. 5/5 motor strength throughout. Psych: Normal mood and affect. Assessment and Plan This is a 61 y.o. female with PMHx of NAFLD, cirrhosis c/b portal HTN, EV, thrombocytopenia, PUD, COPD on 2L, hypothyroidism, chronic pain, splenic vein thrombosis, depression who is presenting to the Emergency Department with fall. Vital signs stable. Physical examination as above noteable for TTPalong T and L spine, gait intact. Differential diagnosis includes: Acute on chronic back pain, sciatica, less likely fracture given no trauma, less likely cauda equina given no symptoms to suggest this or neurologic deficits, less likely RP bleed given she is not anticoagulated. Will provide analagesia, observe and reassess. Procedures ED Course Relevant Data as of April 10 1043 Sat April 10, 2022 1033 Patient feeling improved. Able to ambulate in the department. We discussed continuing the Lidoderm patch and oxycodone that she has prescribed. Will write for 1 week of robaxin as well. Will discharge patient home. [AC] Relevant Data User Index [AC] Heike Valdez PA-C Patient is instructed to return to the ED with any new or worsening symptoms, including but not limited to, worsening pain, bowel/bladder incontinence, saddle anesthesia, or any other symptoms that concern her. Patient understands and agrees with the plan. The patient's pain was managed to an adequate level weighing risk vs. benefit of further medications. Upon departure from the Emergency Department, the patient's pain was 8 on a zero to ten scale. Any further pain treatment will be at the discretion of the provider following up with the patient based on their clinical assessment. Condition at departure from the Emergency Department: Stable Diagnosis/Diagnoses 1. Fall, initial encounter 2. Chronic bilateral low back pain with bilateral sciatica Disposition Home Heike Vladez PA-C Physician Injection Molding Technician in Emergency Medicine documented in this encounter Plan of Treatment Upcoming Encounters Date Type Department Care Team (Late st Contact Info) Description 01/04/2025 13:00 EST Office Visit [facility] Ophthalmology - [address] [address] Gagandeep Rome MD [address] [place] [address], [address] 5 [place] [phone] 02/11/2025 13:30 EDT Telemedicine [facility]ology [facility] Oncology - [facility] [address], [place] [phone] Dana Padilla MD [address] [facility], [facility], [address] 2 [place] [address] documented as of this encounter Visit Diagnoses Diagnosis Fall, initial encounter- Primary Chronic bilateral low back pain with bilateral sciatica documented in this encounter Administered Medications Inactive Administered Medications - up to 3 most recent administrations Medication Order MAR Action Action Date Dose Rate Site lidocaine 5 % (LIDODERM) patch 1 Patch 1 Patch, transdermal, Administer over 12 Hours, DAILY, First dose on 04/10/22 at 0900, Until Discontinued, STAT Patch Applied 04/10/2022 8:22 EDT 1 Patch B ack methocarbamoL (ROBAXIN) tablet 750 mg 750 mg, oral, NOW X1, 1 dose, On 04/10/22 at 0730, STAT Given 04/10/2022 7:39 EDT 750 mg oxyCODONE (ROXICODONE) immediate release tablet 5 mg 5 mg, oral, NOW X1, 1 dose, On 04/10/22 at 0730, STAT Given 04/10/2022 7:39 EDT 5 mg documented in this encounter Active and Recently Administered Medications Times are shown in EDT. Scheduled Medication Order 04/08/2022 04/09/2022 04/10/2022 lidocaine 5 % (LIDODERM) patch 1 Patch 1 Patch, transdermal, Administer over 12 Hours, DAILY, First dose on 04/10/22 at 0900, Until Discontinued, STAT 0822 (Patch Applied - Provider: Jes Zamora RN)2021 (Due: Patch Removed - Provider: Jes Zamora RN) methocarbamoL (ROBAXIN) tablet 750 mg (COMPLETED) 750 mg, oral, NOW X1, 1 dose, On 04/10/22 at 0730, STAT 0739 (Given - Provid er: Jes Zamora RN) oxyCODONE (ROXICODONE) immediate release tablet 5 mg (COMPLETED) 5 mg, oral, NOW X1, 1 dose, On 04/10/22 at 0730, STAT 0739 (Given - Provid er: Jes Zamora RN) documented in this encounter Care Teams Radio Time Buyer Relationship Specialty Start Date End Date Emigdio Veronica MD [address] [place] [phone] PCP - General Internal Medicine - Primary Care 05/22/20 02/21/24 Starr Paige MD [address] [place] [phone] Hematology 10/08/21 06/09/22 Dana Padilla MD [address] [facility], [facility] 2 [place] [address] Hematology 01/13/22 06/09/22 documented as of this encounter
--- OUTSIDE RECORDS SUMMARY | 2024-11-22 17:05 | XMS_ITS | Encounter Summary ---
Author Organization [facility] Address [address] [place] [address] Care Team Providers Care Candy Butcher Name Role Phone Emigdio Veronica MD Primary Care Provider + Starr Paige MD Unavailable [phone] Dana Padilla MD Unavailable Reason for Visit * Reason Comments Telemedicine Phone Call dyspnea Encounter Details Date Type Department Care Team (Late st Contact Info) Description 04/23/2022 14:30 EDT Telemedicine 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 No / Unsure 04/22/2022 19:22 EDT documented as of this encounter Functional [...] 3 times daily as needed for Muscle Spasms (abdominal pain). 90 Tablet 1 04/23/2022 04/23/2022 documented in this encounter Progress Notes * Emigdio Veronica MD - 04/23/2022 1430 EDT TELEMEDICINE PHONE VISIT The concept of ???Telemedicine?? has been described to the patient.? Patient has been informed of the anticipated benefits and possible risks.? Patient understands the information provided regardingtelemedicine, has had the opportunity to ask questions about this information, and all questions have been answered to patient???s satisfaction. Patient consents for the use of telemedicine in his/her medical care and authorizes the transmission of any relevant medical information to providers and their staff involved in patient???s medical or mental health care. The patient confirms chronic pain in her lower extremities and abdomen The following staff and their role did participate in today's encounter visit: Emigdio Veronica MD Medications, allergies and history reviewed. Current Outpatient Medications Medication ??? albuterol 90 mcg/actuation inhaler ??? ferrous sulfate 324 mg (65 mg iron) tablet,delayed release (DR/EC) ??? furosemide (LASIX) 20 mg tablet ??? levothyroxine (SYNTHROID) 25 mcg tablet ??? methocarbamoL (ROBAXIN) 750 mg tablet ??? mupirocin (BACTROBAN) 2 % ointment [...] mg /3 mL (0.083 %) nebulizer solution S: Tara Yun is a 61 y.o. female with PMHx of COPD, thrombocytopenia, QUIROZ cirrhosis, chronicpain syndrome who presents with a CC: Of abdominal pain and dyspnea follow-up Today Gena presents for a telemedicine phone visit for ongoing concerns of dyspnea, lower extremity edema and chronic pain. She was seen in [facility] ER yesterday evening for her combined complaints of worsening abdominal pain,lower extremity edema and dyspnea. Lab work revealed evidence of a mild MUSA with a creatinine of 1.28 and a slight worsening of her chronic thrombocytopenia with a platelet count of 77. Due to her history of portal vein thrombosis and her complaints of worsening dyspnea she received a CT PE scan that demonstrated no evidence of acute pulmonary emboli. Her CT chest scan did reveal however evidenceof mild hydrostatic edema. a CT angiogram of her abdomen confirmed an unchanged burden of portal and splenic vein thromboses. She was ultimately discharged with instructions to follow-up with her PCPoffice regarding her continued complaints and chronic pain. Today she reports that her lower extremity edema feels substantially worse. She notes that on her home scale she now weighs 203 pounds up from her last recorded his weight in the mid-230. Notably shewas weighed to be 240 pounds at the ER last evening. She confirms that the majority of her edema isappreciated in her lower extremities though she still notes a substantial amount of edema in her abdomen. She confirms compliance with her current diuretic regiment of 20 mg of furosemide and 50 mg of spironolactone daily. We discussed her tenuous status and reviewed the fact that increasing her diuretics historically has resulted in worsening kidney function and symptoms of presyncope. Nevertheless she would like to trial a short period of increased diuresis to improve her current symptoms. She notes an extremely high burden of abdominal pain at this time. She confirms that the overall switch from oxycodone 5 mg twice daily to 3 times daily has reduced her pain burden, but she would be interested in restarting a muscle relaxant specifically methocarbamol. She notes that she was prescribed this medication for pain flares in the past to moderately good effect. We did discuss the fact that she did run short on her last oxycodone supply. She denies overuse and denies access to her pills by anyone other than herself. She states she was off by only 1 day and will be more vigilant on her pill supply moving forward. ROS as above O: There were no vitals taken for this visit. Recent Labs/Imaging: Reviewed in epic A and P: Diagnoses and all orders for this visit: Bilateral lower extremity edema, cirrhosis, Dyspnea: Patient undoubtedly volume up based on steady increase in recorded weights from office visits and ER measurements. CT chest demonstrates mild hydrostatic edema which is likely exacerbating her chronic shortness of breath. Suspect the patient is aleast a few pounds up though there is a discrepancy between our recorded weights and her recorded weights. Primary meals on wheels driver of volume overload state remains her QUIROZ cirrhosis. We discussed carefully and temporarily dose escalating her diuresis with a plan to repeat her BMP next week and to track herweights. - BASIC METABOLIC PANEL (BMP); Future -We will increase furosemide to 40 mg daily temporarily -Continue spironolactone 50 mg daily -Track weights daily. Once weight drops by 5 pounds encouraged patient to return to her previous furosemide dose of 20 mg daily Chronic pain syndrome: Eye pain burning in [...] not be filled without this provider's permission. MUSA (acute kidney injury) ([facility]) (HCC): Unclear etiology. Cannot exclude possibility of congestive nephropathy in setting of volume overload state. -Careful diuresis as above -Repeat BMP as above F/u: Return in about 1 month (around 05/23/2022) for f30. I spent a total of 35 minutes with this patient today over the phone, in chart review and in documentation and 25 minutes of that time was spent on education and counseling for dyspnea, bilateral lower extremity edema, cirrhosis, chronic pain syndrome, MUSA. Some of this note was transcribed with PharmMDating software. While it was proofread, it may still contain unnoticed grammatical or word errors due to incorrect transcribing. Emigdio Veronica MD 04/23/2022 16:51 documented in this encounter Plan of Treatment Upcoming Encounters Date Type Department Care Team (Late st Contact Info) Description 01/04/2025 13:00 EST Office Visit [facility] Ophthalmology - [address] [phone] Gagandeep Rome MD [address] [place] [address], [facility] 5 [place] [phone] 02/11/2025 13:30 EDT Telemedicine [facility] Hematology & Oncology - [address] [phone] Dana Padilla MD [address] [place] [address], [facility] 2 [place] [phone] documented as of this encounter Results * (ABNORMAL) BASIC METABOLIC PANEL (BMP) (04/28/2022 9:24 EDT) Sodium 142 136 - 145 mmol/L 04/28/2022 11:48 EDT [facility] Potassium 3.7 3.5 - 5.0 mmol/L 04/28/2022 11:48 EDT [facility] Chloride 107 96 - 110 mmol/L 04/28/2022 11:48 EDT [facility] CO2 Total 25 22 - 32 mmol/L 04/28/2022 11:48 T [facility] Anion Gap 10 5 - 14 04/28/2022 11:48 T [facility] Glucose 85 70 - 100 mg/dL 04/28/2022 11:48 EDT [facility] Calcium 8.2(L) 8.5 - 10.5 mg/dL 04/28/2022 11:48 EDT [facility] BUN 21 10 - 26 mg/dL 04/28/2022 11:48 T [facility] Creatinine 1.15(H) 0.52 - 1.04 mg/dL 04/28/2022 11:48 T [facility] eGFR 54(L) >60 mL/min/1.73 m2 04/28/2022 11:48 T [facility] Blood VENOUS BLOOD / Unknown Venipuncture / Unknown 04/28/2022 9:24 EDT 04/28/2022 9:24 EDT us Emigdio Veronica MD CHEMISTRY & BLOOD GAS OR DERABLES Final Result [facility] [address] [place] [address] documented in this encounter Visit Diagnoses Diagnosis Bilateral lower extremity edema- Primary Edema Other cirrhosis of liver (HCC-CMS) Chronic pain syndrome MUSA (acute kidney injury) ([facility]) Acute kidney failure, unspecified Healthcare maintenance Routine general medical examination at a health care facility documented in this encounter Care Teams Candy Butcher Relationship Specialty Start Date End Date Emigdio Veronica MD [address] [place] [phone] PCP - General Internal Medicine - Primary Care 05/22/20 02/21/24 Starr Paige MD [address] [place] [phone] Hematology 10/08/21 06/09/22 Dana Padilla MD 111 [facility], Level [address] [place] [address] Hematology 01/13/22 06/09/22 documented as of this encounter
--- OUTSIDE RECORDS SUMMARY | 2024-11-22 17:05 | XMS_ITS | Encounter Summary ---
Author Organization [facility] Address [address] [place] [address] Care Team Providers Care Career Development Consultant Name Role Phone Emigdio Veronica MD Primary Care Provider + Starr Paige MD Unavailable [phone] Dana Padilla MD Unavailable Reason for Visit * Reason Comments Shortness of Breath patient arrives via EMS from home with SOB since Tuesday, getting worse. Here last week and Lasix dose doubled. Neb tx tried by EMS without success. 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 No / Unsure 04/26/2022 22:02 EDT documented as of this encounter Last Filed Vital Signs Vital Sign Reading Time Taken Comments Blood Pressure 125/106 04/26/2022 2201 EDT Pulse 76 04/26/2022 2201 EDT Temperature 37.4 ??C (99.3 ??F) 04/26/2022 2 201 EDT Respiratory Rate 13 04/27/2022 0000 EDT Oxygen Saturation 92% 04/27/2022 012 4 EDT while ambulating off O2 Inhaled Oxygen Concentration - - Weight 108.9 kg (240 lb) 04/26/2022 220 1 EDT Height 165.1 cm (5' 5) 04/26/2022 2201 EDT Body Mass Index 39.94 04/26/2022 2201 EDT documented in this encounter Functional Status * Are you deaf or do you have serious difficulty hearing? Answer Date of Assessment Author No 02/10/2022 18:24 EDOtilio Leigh RN * Are you blind or do [...] this encounter Discharge Instructions * Discharge Instructions* Wilian Levi MD - 04/27/2022 1:46 EDT You were evaluated in the emergency department for shortness of breath. You were given a medicationto help with the shortness of breath and pain control. You were observed in the emergency department for several hours with improvement prior to discharge. Please return to the emergency department if you develop severe or worsening symptoms. documented in this encounter Medications at Time [...] Muscle Spasms. 90 Tablet 1 04/23/2022 2 ferrous sulfate 324 mg (65 mg iron) [...] Max: 15 mg 84 Tablet 04/14/2022 2 oxyCODONE (ROXICODONE) 5 mg immediate release [...] HFA aerosol inhaler inhalerIndicatio ns:COPD with asthma ([facility]) INHALE 2 PUFFS DIRECTED DAILY 10.2 Each 1 04/14/2022 2 traZODone (DESYREL) 100 mg tablet Take 1 Tablet by mouth at bedtime. 90 Tablet 1 03/23/2022 2 documented as of this encounter Discharge Disposition Disposition Code Departure Means Destination Home or Self [facility] documented in this encounter Progress Notes * Anusha Schneider RN - 04/27/2022 0155 EDT 0115- Pt ambulated 100 ft without O2. Sat remained 92-93% RA HR 101-103. Tolerated well. 0156- Per MD plan to discharge home. Pt in agreement with discharge plan. #20 IV removed from R forearm Cath intact. * Pop Lloyd, RT - 04/26/2022 2206 EDT Respiratory Consult/Progress Note Indications for Respiratory therapy: Hx COPD Data Vitals: Heart Rate: 72 BPM, Resp: 22, SpO2: 97 % FIO2/O2 Device: , , O2 Device: None, RT Orders: Initial respiratory care consult Protocol Scoring: Bronchodilator/Inhalation Therapy Frequency Bronchodilator - Clinical Indications: History of COPD Breath Sounds: Any abnormal BS decreased Response: No change / no treatment Pulse: <100 Resp Rate: <18 SOB: At rest Total Score: 3 Comment:: home routine Frequency Based On Total Score: [...] breath sounds with increased FiO2 Breath Sounds: Other Surgery: No X-Ray / Atelectasis: No O2 Requirements: O2 at baseline Mobility Status: Mobile / at baseline Total: 1 Comment: Pt wears 2 LPM NC as needed at home Frequency Based On Total Score: 0-3 = PRN 4-6 = QID and PRN 7-9 = Q4H and PRN 10-12 = Q2H and PRN Action/Events Respiratory events; Initial respiratory care consult done. Pt states that she has a Hx COPD and uses PRN albuterol mdi and BID Symbicort. Pt states that she has a Hx HUEY and uses 2 LPM NC at night. Pt states that she has not had a sleep study yet and does not wear a CPAP/BiPAP at home. Pt also uses 2 LPM NC as needed during the day. Pt able to use mdi's independently. May switch mdi's to RN admin. Response/Results Weaning and Toleration of treatments; Pt currently on RA RT ALFREDO 04/26/22 documented in this encounter ED Notes * Karen Knott, KENN - 04/27/2022 0222 EDT Pt brought in by ambulance. Requesting assistance for ride home. Taxi voucher provided. Pt ambulated out of ED offering no complaints. * Angelica Cummings RN - 04/27/2022 0006 EDT Pt placed on 2L NC for SpO2 91% on RA while sleeping * Micky Grimes MD - 04/26/2022 2343 EDT Emergency Department Visit Attestation statement: I, Laurent Chaudhry MD performed or was present during the brown or critical portions of the visit and participated in the management of the patient. I agree with the findings and plan of care documented in the resident's note. Assessment and ED Course Relevant Data as of Apr 26 2343 Mon Apr 26, 2022 2206 As needed EKG shows sinus rhythm, rate of 71, normal axis, normal intervals, no ischemic T wave or ST segment changes [NR] 2311 The patient is a 61-year-old female with a past medical history significant for cirrhosis, COPD, known portal and splenic vein thrombosis no longer on anticoagulation due to thrombocytopenia andGI bleed who presents to the emergency department with abdominal pain, nausea, vomiting, fever, andshortness of breath. Differential diagnosis on arrival is wide but includes viral syndrome, pulmonary edema, CHF exacerbation, COPD exacerbation. Plan of care includes blood work, nebs, steroids, chest x-ray. She otherwise arrives in no acute distress, but is endorsing moderate abdominal pain but has a benign abdomen. She received CT angiography 4 days ago and it does not seem the nature or severity of her pain has changed significantly. She is with extensive wheezing on my initial exam and we will plan to treat for COPD exacerbation. [NR] Relevant Data User Index [NR] Micky Grimes MD I have ordered the patient for 1.25 mg droperidol, 0.5 mg hydromorphone, 125 mg Solu-Medrol, as well as DuoNebs. The case was discussed with the overnight attending, Dr. Marmolejo with anticipated disposition pending pain control, nausea control p.o. trial, ambulatory trial. Final diagnoses: Shortness of breath Disposition: Discharged Chief complaint: Shortness of breath, nausea and vomiting, abdominal pain FINA Boothe is a 61 y.o. female with a history of splenic and portal vein thrombosis, thrombocytopenia, COPD who presents to the ED for shortness of breath, nausea and vomiting, fever, abdominal pain. The patient reports for the last several days she has been experiencing worsening dyspnea on exertion and shortness of breath, as well as epigastric burning discomfort. She was seen in our emergency department 3 days ago for the same complaints and received CT imaging of her chest abdomen and pelvis to evaluate for worsening of her thrombosis, which returned normal. She was treated for a congestive heart failure exacerbation and was sent home with instructions to take additional Lasix, buther symptoms have not improved. Today, she had nausea and vomiting and has been unable to tolerate p.o. since this morning at which time she had half a piece of toast. She also reports a fever at home to 101 degrees. She has not taken any medicine for this. History was provided by: Patient Patient's pertinent PMH, FH, SH were reviewed and edited as necessary. ROS A 10-point review of systems was performed. The patient answered negative to all questions with theexceptions of those explicitly detailed as positives in the HPI. Pertinent negatives are also explicitly stated. Physical Exam BP (!) 125/106 Pulse 76 Temp 37.4 ??C (99.3 ??F) (Oral) Resp 20 Ht 165.1 cm (65) Wt (!) 108.9 kg (240 lb) SpO2 95% BMI 39.94 kg/m?? A medical screening exam was performed. Physical Exam HEENT: Head atraumatic. EOMI. PERRL. No nasal discharge. Mucous membranes moist. Neck: Supple, trachea midline. Cardiac: RRR, no murmurs. Respiratory: Diffuse wheezing, slightly increased work of breathing Abdomen: Soft, Moderate discomfort in epigastrum to palpation, nondistended, no rebound or guarding. Extremities: WWP, no gross deformity. Neurological: Face symmetrical. EOMI. Vocalizing without obvious aphagia or slurring of speech. Moving upper and lower extremities spontaneously. An EKG was obtained and independently interpreted. Imaging obtained was reviewed and independently interpreted. Procedures Procedures Cosigned by Laurent Chaudhry MD at 04/27/2022 20:55 EDT * Laurent Marmolejo DO - 04/26/2022 2326 EDT I, Oni Yepez, am scribing for Laurent Marmolejo DO while he/she is personally performing the service. Oni Yepez 04/26/2022 23:26 Tara Boothe is a 61 y.o. female who presents to the ED with shortness of breath. The patient presented to the ED with a several day history of worsening dyspnea on exertion. Today, the patient had an onset of nausea and vomiting and has been unable to tolerate PO. Care and work-up prior to sign out includes pain control with Dilaudid and administration of droperidol, solumedrol, and duoneb. I assumed care of patient from Dr. Chaudhry with reevaluation pending. After I assumed care the patient had 0140: Per nursing staff, the patient ambulated around the ED without difficulty or dyspnea or hypoxia. Patient requesting discharge. Upon departure from the Emergency Department, the patient's pain seemed to be 0 on a zero to ten scale. Condition at departure from the Emergency Department: Good Disposition decisions were made weighing risks and benefits of hospitalization vs. outpatient treatment, the risk for further decompensation, and the patient???s wishes. Discharged. The patient was stable, improved, or requested discharge. Prior to discharge my usual and customary return precautions were reviewed with the patient and/or family. This included follow-up instructions and reasons to return to the Emergency Department if condition worsens, does not improve as expected, or other new concerns arise. Final diagnoses: Shortness of breath This documentation is recorded by Oni Yepez acting as Scribe under the direction and presenceof Laurent Marmolejo DO. Laurent Marmolejo DO: I personally performed the services recorded by the scribe in my presence. I confirm the scribe's documentation has been reviewed by me to accurately and completely record my work, treatment, procedures, and medical decision making. * Angelica Cummings RN - 04/26/2022 2155 EDT Patient arrives via EMS from home, was here last week for similar episode, told to double Lasix (for 40mg total daily). Increasingly SOB since Tuesday. SpO2 98% RA, tachypnic to mid 20s. Inspiratoryand expiratory wheezes throughout. Per patient, supposed to wear O2 all of the time as of Tuesday. Febrile today. EKG completed and shown to MD. Placed on tele, NiBP and SpO2 monitoring, call light within reach documented in this encounter Plan of Treatment Upcoming Encounters Date Type Department Care Team (Late st Contact Info) Description 01/04/2025 13:00 EST Office Visit [facility] Ophthalmology - [address] [phone] Gagandeep Rome MD [address] [place] [address], [facility] [address] [place] [phone] 02/11/2025 13:30 EDT Telemedicine [facility] Hematology & Oncology [address] [phone] Dana Padilla MD [address] [place] [phone] [address] [place] [phone] documented as of this encounter Procedures Procedure Name Priority Date/Time Associated Diagnosis Comments ECG REPORT - SCANNED 05/03/2022 6:25 EDT ZZCOVID-19 TEST [facility] PCR STAT 04/26/2022 22:29 EDT COVID-19 TESTING STAT 04/26/2022 22:2 9 EDT ZZHN INFLUENZA A AND B, RSV PCR STAT 04/26/2022 22:29 EDT XR CHEST PORTABLE 1 VIEW STAT 04/26/2022 22:20 EDT COMPLETE BLOOD COUNT AND DIFFERENTIAL STAT 04/26/2022 22:14 EDT NT PRO BNP STAT 04/26/2022 22:14 EDT LIPASE STAT Add-on 04/26/2022 22:14 EDT COMPREHENSIVE METABOLIC PANEL (CMP) STAT 04/26/2022 22:14 EDT EKG 12-LEAD STAT 04/26/2022 22:04 EDT documented in this encounter Results * ECG REPORT - SCANNED (05/03/2022 6:25 EDT) 05/03/2022 6:25 EDT us Scan 2 Engineering Job Titles PROCEDURE/MINOR SURGICAL OR DERABLES Final Result * COVID-19 TEST [facility] PCR (04/26/2022 22:29 EDT) Swab ENTIRE NASOPHARYNX / Unknown Swab / Unknown 04/26/2022 22:29 EDT 04/26/2022 22:31 EDT us Micky Grimes MD MICROBIOLOGY - GENERAL ORDERABLE S Final Result [facility] [address] [place] [id number] * COVID-19 TESTING (04/26/2022 22:29 EDT) COVID-19 rt-PCR Result Negative Negative 04/26/2022 23:21 EDT [facility] Comment: This test has [...] history, and epidemiological information. Performed on the [employer] GeneXpert Instrument Performing Lab GeneXpert [facility] 04/26/2022 23:21 EDT [facility] Swab ENTIRE NASOPHARYNX / Unknown Swab / Unknown 04/26/2022 22:29 EDT 04/26/2022 22:31 EDT Micky Grimes MD MICROBIOLOGY - GENERAL ORDERABLE S Final Result Performing Organization Address City/[facility]/ZIP Co de Phone Number [facility] [address] [place] [address] * INFLUENZA A AND B,RSV PCR (04/26/2022 22:29 EDT) FLU A RNA Result (FLARES) Negative Negative 04/26/2022 23:21 EDT [facility] FLU B RNA Result (FLBRES) Negative Negative 04/26/2022 23:21 EDT [facility] RSV RNA Result (RSVRES) Negative Negative 04/26/2022 23:21 EDT [facility] Swab ENTIRE NASOPHARYNX / Unknown Swab / Unknown 04/26/2022 22:29 EDT 04/26/2022 22:31 EDT Micky Grimes MD MICROBIOLOGY - GENERAL ORDERABLE S Final Result Performing Organization Address City/[facility]/ZIP Co de Phone Number [facility] [address] [place] [phone] * XR CHEST PORTABLE 1 VIEW (04/26/2022 22:20 EDT) Anatomical Region Laterality Modality Computed Radiogr aphy 04/27/2022 7:43 EDT Impressions 04/27/2022 7:43 EDT Possible mild interstitial pulmonary edema. Lower lung volumes and the larger patient I have personally reviewed the images and the above interpretation and agree with the findings. Narrative 04/27/2022 7:43 EDT XR CHEST PORTABLE 1 VIEW ??04/26/2022 10:10 PM CLINICAL HISTORY/COMMENTS: sob COMPARISON: CT PE 04/23/2022, chest radiograph 12/14/2021. FINDINGS: Single portable AP view of the chest. Patient is currently 75 degrees from supine toward upright Lines/tubes: ??None Soft tissues, bones and extrathoracic findings: This patient is large limiting detail Cardiac and mediastinal contours: Normal. Lungs low lung volumes with some indistinctness of the vascular margins likely due to the size of the patient and the smaller lung length Pleura: No visible pleural abnormalities. Procedure Note Wayne Resendiz MD - 04/27/2022 XR CHEST PORTABLE 1 VIEW 04/26/2022 10:10 PM CLINICAL HISTORY/COMMENTS: sob COMPARISON: CT PE 04/23/2022, chest radiograph 12/14/2021. FINDINGS: Single portable AP view of the chest. Patient is currently 75 degrees fromsupine toward upright Lines/tubes: None Soft tissues, bones and extrathoracic findings: This patient is largelimiting detail Cardiac and mediastinal contours: Normal. Lungs low lung volumes with some indistinctness of the vascular marginslikely due to the size of the patient and the smaller lung length Pleura: No visible pleural abnormalities. IMPRESSION Possible mild interstitial pulmonary edema. Lower lung volumes and thelarger patient I have personally reviewed the images and the above interpretation andagree with the findings. us Micky Grimes MD [facility] [facility] ORDERABLE S Final Result * LIPASE (04/26/2022 22:14 EDT) Lipase 100 <251 U/L 04/26/2022 23:17 EDT [facility] Blood VENOUS BLOOD / Unknown Venipuncture / Unknown 04/26/2022 22:14 EDT 04/26/2022 22:18 EDT Micky Grimes MD CHEMISTRY & BLOOD GAS ORDERABLES Final Result Performing Organization Address [facility] Co de Phone Number [facility] [address] [place] [address] * NT PRO BNP (04/26/2022 22:14 EDT) NT-pro BNP 101 <125 pg/mL 04/26/2022 23:00 EDT [facility] Comment:The results of this assay can be falsely lowered due to consumption of Biotin. Blood VENOUS BLOOD / Unknown Venipuncture / Unknown 04/26/2022 22:14 EDT 04/26/2022 22:18 EDT Micky Grimes MD CHEMISTRY & BLOOD GAS ORDERABLES Final Result Performing Organization Address [facility] de Phone Number [facility] [address] [place] [address] * (ABNORMAL) COMPREHENSIVE METABOLIC PANEL (CMP) (04/26/2022 22:14 EDT) Pathologist [facility] Sodium 139 136 - 145 mmol/L 04/26/2022 22:53 [facility] Potassium 4.0 3.5 - 5.0 mmol/L 04/26/2022 22:53 [facility] Chloride 104 96 - 110 mmol/L 04/26/2022 22:53 [facility] CO2 Total 25 22 - 32 mmol/L 04/26/2022 22:53 [facility] Glucose 87 70 - 100 mg/dL 04/26/2022 22:53 [facility] BUN 18 10 - 26 mg/dL 04/26/2022 22:53 [facility] Creatinine 1.14(H) 0.52 - 1.04 mg/dL 04/26/2022 22:53 [facility] eGFR 55(L) >60 mL/min/1.7 3m2 04/26/2022 22:53 [facility] Total Protein 6.8 6.3 - 8.2 g/dL 04/26/2022 22:53 [facility] Albumin 3.8 3.4 - 4.9 g/dL 04/26/2022 22:53 [facility] Alkaline Phosphatase 99 38 - 126 U/L 04/26/2022 22:53 [facility] AST 25 15 - 46 U/L 04/26/2022 22:53 [facility] ALT 12 <35 U/L 04/26/2022 22:53 [facility] Bilirubin, Total 0.6 <1.4 mg/dL 04/26/20 22:53 [facility] Calcium 8.8 8.5 - 10.5 mg/dL 04/26/2022 22:53 [facility] Albumin/Globulin Ratio 1.3 1.0 - 2.5 04/26/2022 22:53 [facility] Anion Gap 10 5 - 14 04/26/2022 22:53 [facility] Blood VENOUS BLOOD / Unknown Venipuncture / Unknown 04/26/2022 22:14 EDT 04/26/2022 22:18 EDT us Micky Grimes MD CHEMISTRY & BLOOD GAS ORDERABLES Final Result [facility] [address] [place] [address] * (ABNORMAL) COMPLETE BLOOD COUNT AND DIFFERENTIAL (04/26/2022 22:14 EDT) WBC 4.88 4.00 - 12.40 K/cmm 04/26/2022 22:26 [facility] RBC 3.77(L) 3.86 - 5.04 M/cmm 04/26/2022 22:26 [facility] Hemoglobin 11.0(L) 11.6 - 15.2 gm/dL 04/26/2022 22:26 [facility] HCT 33.1(L) 34.9 - 44.4 % 04/26/2022 22:26 [facility] MCV 88 81 - 98 fl 04/26/2022 22:26 [facility] MCH 29.2 26.7 - 33.3 pg 04/26/2022 22:26 [facility] MCHC 33.2 32.1 - 35.9 gm/dL 04/26/2022 22:26 [facility] RDW-CV 14.9(H) <14.7 % 04/26/2022 22:26 [facility] RDW-SD 47.7 <50.4 fl 04/26/2022 22:26 [facility] PLT 83(L) 141 - 377 K/cmm 04/26/2022 22:26 [facility] MPV 10.1 9.5 - 12.7 fl 04/26/2022 22:26 [facility] % Neutrophils 83.2 % 04/26/2022 22:26 [facility] % Lymphocytes 6.4 % 04/26/2022 22:26 [facility] % Monocytes 8.4 % 04/26/2022 22:26 [facility] % Eosinophils 1.0 % 04/26/2022 22:26 [facility] % Basophils 0.6 % 04/26/2022 22:26 [facility] % Immature Grans 0.4 % 04/26/20 22:26 [facility] Absolute Neutrophils 4.06 2.20 - 8.85 K/cmm 04/26/2022 22:26 [facility] Absolute Lymphocytes 0.31(L) 1.09 - 3.30 K/cmm 04/26/2022 22:26 [facility] Absolute Monocytes 0.41 0.10 - 0.80 K/cmm 04/26/2022 22:26 [facility] Absolute Eosinophils 0.05 0.03 - 0.61 K/cmm 04/26/2022 22:26 [facility] ABS Basophils 0.03 0.01 - 0.11 K/cmm 04/26/2022 22:26 EDT [facility] Absolute Immature Grans 0.02 0.00 - 0.06 K/cmm 04/26/2022 22:26 EDT [facility] Type of Differential: Auto 04/26/2022 22:26 EDT [facility] Blood VENOUS BLOOD / Unknown Venipuncture / Unknown 04/26/2022 22:14 EDT 04/26/2022 22:18 EDT us Micky Grimes MD PACKAGES & DNA PROBE ORDERABLES Final Result [facility] [address] [place] [address] * EKG 12-LEAD (04/26/2022 22:04 EDT) 04/26/2022 22:0 4 EDT Narrative [facility] EKG - 04/30/2022 15:22 EDT ?[facility] Emergency ? Test Date: ?2022-04-26 Pat Name: ? PHYLISS BOOTHE ?Department: ?? ED ? Room: ? AC15 Gender: ? Female ? 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 Requested By: MAC Leonardo Order Number: [id number] ? Reading MD: ?? LAURENT MACK MD PhD ? Measurements Intervals ?[place] ? Rate: ? 71 ? P: ?55 [place]: ? 156 ?QRS: ?64 QRSD: ? 89 ? T: ?42 QT: ? 392 ? QTc: ?426 ? Interpretive Statements SINUS RHYTHM WITH MARKED SINUS ARRHYTHMIA Compared to ECG 04/22/2022 19:13:27 No significant changes I reviewed the tracing and have either agreed or edited the findings in this report. Electronically Signed On 04-30-2022 15:22:10 EDT by LAURENT MACK MD PhD. Procedure Note Laurent Mack MD - 04/30/2022 [facility] Emergency Test Date: 2022-04-26 Pat Name: TARA BOOTHE Department: ED Room: 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 Electronically Signed On 04-30-2022 15:22:10 EDT by ERVIN PHIPPS PhD. us Laurent Chaudhry MD CARDIAC ECG ORDERABLES Pricila mccord Result [facility] EKG documented in this encounter Visit Diagnoses Diagnosis Shortness of breath- Primary documented in this encounter Administered Medications Inactive Administered Medications - up to 3 most recent administrations Medication Order MAR Action Action Date Dose Rate Site droperidoL (INAPSINE) injection 1.25 mg 1.25 mg, intravenous, NOW X1, 1 dose, On Tue04/26/22 at 2315, STAT Given 04/26/2022 23:26 EDT 1.25 mg HYDROmorphone (PF) (DILAUDID) 0.5 mg/0.5 mL syringe 0.5 mg 0.5 mg, intravenous, NOW X1, 1 dose, On Tue04/26/22 at 2345, STAT Given 04/26/2022 23:41 EDT 0.5 mg ipratropium-albuteroL (DUONEB) 0.5 mg-3 mg(2.5 mg base)/3 mL nebulizer solution 3 mL 3 mL, nebulization, NOW X1, 1 dose, On Tue04/26/22 at 2300, STAT Given 04/26/2022 23:30 EDT 3 mL methylPREDNISolone sod suc(PF) (SOLU-MEDROL) injection 125 mg 125 mg, intravenous, NOW X1, 1 dose, On Tue04/26/22 at 2315, STAT Given 04/26/2022 23:23 EDT 125 mg documented in this encounter Active and Recently Administered Medications Times are shown in EDT. Scheduled Medication Order 04/25/2022 04/26/2022 04/27/2022 droperidoL (INAPSINE) injection 1.25 mg (COMPLETED) 1.25 mg, intravenous, NOW X1, 1 dose, On Tue04/26/22 at 2315, STAT 2326 (Given - Provider: Monika Cummings, KENN) HYDROmorphone (PF) (DILAUDID) 0.5 mg/0.5 mL syringe 0.5 mg (COMPLETED) 0.5 mg, intravenous, NOW X1, 1 dose, On Tue04/26/22 at 2345, STAT 2341 (Given - Provider: Monika Cummings, KENN) ipratropium-albuteroL (DUONEB) 0.5 mg-3 mg(2.5 mg base)/3 mL nebulizer solution 3 mL (COMPLETED) 3 mL, nebulization, NOW X1, 1 dose, On Tue04/26/22 at 2300, STAT 2330 (Given - Provider: Pop Lloyd RT) methylPREDNISolone sod suc(PF) (SOLU-MEDROL) injection 125 mg (COMPLETED) 125 mg, intravenous, NOW X1, 1 dose, On Tue04/26/22 at 2315, STAT 2323 (Given - Provider: Monika Cummings RN) oxyCODONE (ROXICODONE) immediate release tablet 5 mg 5 mg, oral, NOW X1, 1 dose, On Tue04/26/22 at 2315, STAT 2343 (Not Given - Provider: Angelica Cummings RN - Reason: Other - Comment: orders changed d/t unable to tolerate PO) documented in this encounter Orders Medications Ordered That Luc ht Not Have Been Administered Count Last Ordered Date First Ordered Date oxyCODONE (ROXICODONE) immed iate release tablet 5 mg 1 04/26/2022 documented in this encounter Additional Health Concerns Infection Onset Date Last Indicated Resolved Time R/O COVID-19 04/26/2022 04/26/2022 04/26/2022 23:4 5 EDT documented as of this encounter Care Teams Career Development Consultant Relationship Specialty Start Date End Date Emigdio Veronica MD 2 [place] [phone] PCP - General Internal Medicine - Primary Care 05/22/20 02/21/24 Starr Paige MD [address] [place] [address] Hematology 10/08/21 06/09/22 Dana Padilla MD 111 [facility] 2 [place] [address] Hematology 01/13/22 06/09/22 documented as of this encounter
--- OUTSIDE RECORDS SUMMARY | 2024-11-22 17:05 | XMS_ITS | Encounter Summary ---
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 pantoprazole (PROTONIX) 40 mg tablet [Pharmacy Med Name: PANTOPRAZOLE SOD DR 40 MG TAB] 30 Tablet 3 Sig: TAKE 1 TABLET BY MOUTH TWICE A DAY [facility]/pharmacy #[id number] - [place], [place] - [address] [facility] Confirmed Pharmacy? [facility] Request Patient out of medication? Unknown Last Refill Date: 03-22-22 Refills left? (explain exceptions requiring early refill) Yes, patient should have refills at the pharmacy. Recent Visits Date Type Provider Dept 02/17/22 Office Visit Emigdio Veronica MD [place] Adult Prim [facility] 02/10/22 Office Visit Darlene Rollins NP [place] [facility] 01/27/22 Office Visit Osmany Matthews MD [place] [facility] 11/25/21 Office Visit Emigdio Veronica MD [place] [facility] 11/11/21 Office Visit Scottie Campuzano PA-C [place] [facility] 10/20/21 Office Visit Emigdio Veronica MD [place] [facility] 10/08/21 Office Visit Emigdio Veronica MD [place] [facility] 09/18/21 Office Visit Scottie Campuzano PA-C [place] [facility] 07/22/21 Office Visit Scottie Campuzano PA-C [place] Adult Prim [facility] 05/14/21 Office Visit Emigdio Veronica MD [place] [facility] Showing recent visits within past 540 days with a meds authorizing provider and meeting all other requirements Future Appointments Date Type Provider Dept 04/23/22 Appointment Emigdio Veronica MD [place] Adult Prim [facility] 07/07/22 Appointment Emigdio Veronica MD [place] Adult Prim [facility] Showing future appointments within next 150 days with a meds authorizing provider and meeting all other requirements Future appointment: Already Scheduled JES CISSE, RN 04/21/2022 15:37 documented in this encounter Plan of Treatment Upcoming Encounters Date Type Department Care Team (Late st Contact Info) Description 01/04/2025 13:00 EST Office Visit [facility] Ophthalmology - [address] [phone] Gagandeep Rome MD [address] [place] [address] 5 [place] [phone] 02/11/2025 13:30 EDT Telemedicine [facility] Hematology & Oncology [address] [phone] Dana Padilla MD [address] [place] [phone] documented as of this encounter Visit Diagnoses Not on filedocumented in this encounter Care Teams Welder Apprentice Relationship Specialty Start Date End Date Emigdio Veronica MD 2 [place] [phone] PCP - General Internal Medicine - Primary Care 05/22/20 02/21/24 Starr Paige MD [address] [place] [phone] Hematology 10/08/21 06/09/22 Dana Padilla MD [address] [place] [address] 2 [place] [address] Hematology 01/13/22 06/09/22 documented as of this encounter
--- OUTSIDE RECORDS SUMMARY | 2024-11-22 17:05 | XMS_ITS | Encounter Summary ---
Author Organization [facility] Address [address] [place] [address] Care Team Providers Care Railroad Design Consultant Name Role Phone Emigdio Veronica MD Primary Care Provider + Starr Paige MD Unavailable [phone] Dana Padilla MD Unavailable Reason for Visit * Reason Onset Date Comments COVID-19 03/17/2022 Encounter Details Date Type Department Care Team (Late st Contact Info) Description 03/17/2022 Telephone [facility] Adult Primary Care - [address] [address] Emigdio Veronica MD [address] [place] [phone] COVID-19 Social History Tobacco Use Types Packs/Day Years [...] 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 (5 years old or older) Answer Entry Date Author No 02/10/2022 18:24 EDT Otilio Dawson RN documented in this encounter Miscellaneous Notes * Telephone Encounter - Sharon Khanna NP - 03/22/2022 1609 EDT Being addressed in separate encounter * Telephone Encounter - Hesham Jaime - 03/17/2022 1258 EDT Attempted to contact patient, VM box not set up. Will send evly message. HESHAM JAIME RN 03/17/2022 12:59 * Telephone Encounter - Dolores Maciel - 03/17/2022 1252 EDT Pt received a call today stating she was exposed to covid yesterday by a hospital employee They told her she needs to be tested She is not having any symptoms Pt is vaccinated and has had 1 booster shot documented in this encounter Plan of Treatment Upcoming Encounters Date Type Department Care Team (Late st Contact Info) Description 01/04/2025 13:00 EST Office Visit [facility] Ophthalmology [address] [phone] Gagandeep Rome MD [address] [place] [address], Level [address] [place] [phone] 02/11/2025 13:30 EDT Telemedicine [facility] Hematology & Oncology [address] [phone] Dana Padilla MD 111 [facility] 2 [place] [phone] documented as of this encounter Visit Diagnoses Not on filedocumented in this encounter Care Teams Railroad Design Consultant Relationship Specialty Start Date End Date Emigdio Veronica MD 2 [place] [phone] PCP - General Internal Medicine - Primary Care 05/22/20 02/21/24 Starr Paige MD [address] [place] [phone] Hematology 10/08/21 06/09/22 Dana Padilla MD [address] [phone] Hematology 01/13/22 06/09/22 documented as of this encounter
--- OUTSIDE RECORDS SUMMARY | 2024-11-22 17:05 | XMS_ITS | Encounter Summary ---
Author Organization [facility] Address [address] [place] [address] Care Team Providers Care Leather Seasoner Name Role Phone Emigdio Veronica MD Primary Care Provider + Starr Paige MD Unavailable [phone] Dana Padilla MD Unavailable Reason for Visit * Reason Onset Date Comments Medications Refill 04/09/2022 Encounter Details Date Type Department Care Team (Late st Contact Info) Description 04/09/2022 Refill [facility] Adult Primary Care - [place] 2 [place] [address] Emigdio Veronica MD 2 [place] [phone] Medications Refill Social History Tobacco [...] Industry 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 oxyCODONE (ROXICODONE) 5 mg immediate release tablet 84 Tablet 0 Sig: Take 1 Tablet by mouth 3 times daily as needed for up to 28 days for Pain. Daily Max: 15 mg [facility]/pharmacy #[id number] - [place], [place] - [address] [facility] Confirmed Pharmacy? Yes Patient out of medication? No, couple left Last Refill Date: 03.17.22 Refills left? (explain exceptions requiring early refill) No Recent Visits Date Type Provider Dept 02/17/22 Office Visit Emigdio Veronica MD [place] Adult Prim Care 02/10/22 Office Visit Darlene Rollins NP [place] [facility] 01/27/22 Office Visit Osmany Matthews MD [place] Adult Prim [facility] 11/25/21 Office Visit Emigdio Veronica MD [place] [facility] 11/11/21 Office Visit Scottie Campuzano PA-C [place] [facility] Prim [facility] 10/20/21 Office Visit Emigdio Veronica MD [place] Adult Prim [facility] 10/08/21 Office Visit Emigdio Veronica MD [place] [facility] 09/18/21 Office Visit Scottie Campuzano PA-C [place] [facility] 07/22/21 Office Visit Scottie Campuzano PA-C [place] Adult Prim Care 05/14/21 Office Visit Emigdio Veronica MD [place] Adult Prim [facility] Showing recent visits within past 540 days with a meds authorizing provider and meeting all other requirements Future Appointments Date Type Provider Dept 04/23/22 Appointment Emigdio Veronica MD [place] Adult Prim [facility] 07/07/22 Appointment Emigdio Veronica MD [place] Adult Prim [facility] Showing future appointments within next 150 days with a meds authorizing provider and meeting all other requirements Future appointment: Already Scheduled Cris Copeland 04/09/2022 11:53 documented in this encounter Plan of Treatment Upcoming Encounters Date Type Department Care Team (Late st Contact Info) Description 01/04/2025 13:00 EST Office Visit [facility] Ophthalmology - [address] [phone] Gagandeep Rome MD [address] [place] [address], [facility] 5 [place] [phone] 02/11/2025 13:30 EDT Telemedicine [facility] Hematology & Oncology [address] [phone] Dana Padilla MD [address] [place] [address], [facility] 2 [place] [phone] documented as of this encounter Visit Diagnoses Not on filedocumented in this encounter Discontinued Medications Medication Sig Discontinue Reason Start Date End Da te oxyCODONE (ROXICODONE) 5 mg immediate release tablet Take 1 Tablet by mouth 3 times daily as needed for up to 28 days for Pain. Daily Max: 15 mg Reorder 03/17/2022 04/09/2022 documented as of this encounter Care Teams Leather Seasoner Relationship Specialty Start Date End Date Emigdio Veronica MD 2 [place] [phone] PCP - General Internal Medicine - Primary Care 05/22/20 02/21/24 Starr Paige MD [address] [place] [phone] Hematology 10/08/21 06/09/22 Dana Padilla MD 111 [facility], Level [address] [place] [address] Hematology 01/13/22 06/09/22 documented as of this encounter
--- OUTSIDE RECORDS SUMMARY | 2024-11-22 17:05 | XMS_ITS | Encounter Summary ---
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 Not [...] Miscellaneous Notes * Telephone Encounter - Ashley Wemes - 04/09/2022 1152 EDT Labs pended documented in this encounter Plan of Treatment Upcoming Encounters Date Type Department Care Team (Late st Contact Info) Description 01/04/2025 13:00 EST Office Visit [facility] Ophthalmology - [address] [phone] Gagandeep Rome MD [address] [place] [address], [facility] 5 [place] [phone] 02/11/2025 13:30 EDT Telemedicine [facility] Hematology & Oncology - [address] [phone] Dana Padilla MD [address] [place] [address], [facility] 2 [place] [phone] documented as of this encounter Results * LIPID PROFILE (INCLUDES CHOLESTEROL, TRIGLYCERIDES, HDL, LDL) (04/16/2022 10:45 EDT) Cholesterol 143 <200 mg/dL 04/16/2022 12:14 EDT [facility] Comment:Note that therapeuti c goals will differ between patients based on cardiac risk factors and current medical therapy. HDL 59 >=50 mg/dL 04/16/2022 12:14 EDT [facility] Comment:Note that therapeuti c goals will differ between patients based on cardiac risk factors and current medical therapy. LDL, Calculated 72 <160 mg/dL 12:14 EDT [facility] Comment:Note that therapeuti c goals will differ between patients based on cardiac risk factors and current medical therapy. Triglyceride 59 <=150 mg/dL 04/16/2022 12:14 EDT [facility] Comment:Note that therapeuti c goals will differ between patients based on cardiac risk factors and current medical therapy. Chol/HDL Ratio 2.4 See Note 04/16/2022 12:14 T [facility] Comment:No reference range h as been established for CHOL/HDL ratio. Non HDL Cholesterol 84 <160 mg/dL 04/16/2022 12:14 T [facility] Comment:Note that therapeuti c goals will differ between patients based on cardiac risk factors and current medical therapy. Blood VENOUS BLOOD / Unknown Venipuncture / Unknown 04/16/2022 10:45 EDT 04/16/2022 10:45 EDT Emigdio Veronica MD CHEMISTRY & BLOOD GAS OR DERABLES Final Result Performing Organization Address [facility] Co de Phone Number [facility] [address] [place] [address] * THYROID CASCADE (04/16/2022 10:45 EDT) [facility] Signature TSH 3.45 0.47 - 4.68 mIU/L 04/16/2022 12:48 EDT [facility] Blood VENOUS BLOOD / Unknown Venipuncture / Unknown 04/16/2022 10:45 EDT 04/16/2022 10:45 EDT Narrative [facility] - 04/16/2022 12:48 EDT NOTE: The results of this assay can be falsely lowered due to the consumption of Biotin. us Emigdio Veronica MD CHEMISTRY & BLOOD GAS OR DERABLES Final Result Performing Organization Address [facility] Co de Phone Number [facility] [address] [place] [address] documented in this encounter Visit Diagnoses Diagnosis Hypothyroidism, unspecified type- Primary Screening for lipoid disorders documented in this encounter Care Teams Clinical Trial Assistant Relationship Specialty Start Date End Date Emigdio Veronica MD 2 [place] [phone] PCP - General Internal Medicine - Primary Care 05/22/20 02/21/24 Starr Paige MD [address] [place] [phone] Hematology 10/08/21 06/09/22 Dana Padilla MD 111 [facility], Level [address] [place] [address] Hematology 01/13/22 06/09/22 documented as of this encounter
--- OUTSIDE RECORDS SUMMARY | 2024-11-22 17:05 | XMS_ITS | Encounter Summary ---
Author Organization [facility] Address [address] [place] [address] Care Team Providers Care Compensation And Benefits Administrator Name Role Phone Emigdio Veronica MD Primary Care Provider + Starr Paige MD Unavailable [phone] Dana Padilla MD Unavailable Reason for Visit * Reason Onset Date Comments Medications Refill 03/15/2022 Encounter Details Date Type Department Care Team (Late st Contact Info) Description 03/15/2022 Refill [facility] Adult Primary Care - [place] 2 [place] [address] Emigdio Veronica MD 2 [place] [phone] Medications Refill Social History Tobacco [...] 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 Daily Max: 15 mg 84 Tablet 03/17/2022 04/09/2022 documented in this encounter Miscellaneous Notes * Telephone Encounter - Ebony Toscano - 03/15/2022 1133 EDT Requested Prescriptions Pending Prescriptions Disp Refills ??? oxyCODONE (ROXICODONE) 5 mg immediate release tablet 84 Tablet 0 Sig: Take 1 Tablet by mouth 3 times daily as needed for up to 28 days for Pain. Daily Max: 15 mg [id number] - [place], [place] - [address] [facility] Confirmed Pharmacy? Yes Patient out of medication? No Last Refill Date: 02.17.22 Chronic controlled medication yes Last med check visit 02.17.22 Future visit scheduled Yes 03.23.22 Vpms check Yes Due September 2022 Opioid prescription agreement Yes Due April 2022 Patient due for refill yes Is there a plan for tapering of medication noted in chart? unknown Refills left? (explain exceptions requiring early refill) No Recent Visits Date Type Provider Dept 02/17/22 Office Visit Emigdio Veronica MD [place] Adult Prim Care 02/10/22 Office Visit Darlene Rollins NP [place] Adult Prim [facility] 01/27/22 Office Visit Osmany Matthews MD [place] [facility] 11/25/21 Office Visit Emigdio Veronica MD [place] [facility] 11/11/21 Office Visit Scottie Campuzano PA-C [place] Adult Prim [facility] 10/20/21 Office Visit Emigdio Veronica MD [place] Adult Prim [facility] 10/08/21 Office Visit Emigdio Veronica MD [place] Adult Prim [facility] 09/18/21 Office Visit Scottie Campuzano PA-C [place] Adult Prim [facility] 07/22/21 Office Visit Scottie Campuzano PA-C [place] Adult Prim [facility] 05/14/21 Office Visit Emigdio Veronica MD [place] Adult Prim [facility] Showing recent visits within past 540 days with a meds authorizing provider and meeting all other requirements Future Appointments Date Type Provider Dept 03/23/22 Appointment Emigdio Veronica MD [place] Adult Prim [facility] 07/07/22 Appointment Emigdio Veronica MD [place] Adult Prim [facility] Showing future appointments within next 150 days with a meds authorizing provider and meeting all other requirements Future appointment: Already Scheduled Ebony Toscano 03/15/2022 11:34 documented in this encounter Plan of Treatment Upcoming Encounters Date Type Department Care Team (Late st Contact Info) Description 01/04/2025 13:00 EST Office Visit [facility] Ophthalmology - [address] [phone] Gagandeep Rome MD [address] [place] [address], [facility] 5 [place] [phone] 02/11/2025 13:30 EDT Telemedicine [facility] Hematology & Oncology [address] [phone] Dana Padilla MD [address] [place] [address], [facility] 2 [place] [phone] documented as of this encounter Visit Diagnoses Not on filedocumented in this encounter Discontinued Medications Medication Sig Discontinue Reason Start Date End Da te oxyCODONE (ROXICODONE) 5 mg immediate release tablet Take 1 Tablet by mouth 3 times daily as needed for up to 28 days for Pain. Daily Max: 15 mg Reorder 02/17/2022 03/15/2022 documented as of this encounter Care Teams Compensation And Benefits Administrator Relationship Specialty Start Date End Date Emigdio Veronica MD 2 [place] [phone] PCP - General Internal Medicine - Primary Care 05/22/20 02/21/24 Starr Paige MD [address] [place] [phone] Hematology 10/08/21 06/09/22 Dana Padilla MD 111 [facility], Level 2 [place] [phone] Hematology 01/13/22 06/09/22 documented as of this encounter
--- OUTSIDE RECORDS SUMMARY | 2024-11-22 17:05 | XMS_ITS | Encounter Summary ---
Author Organization [facility] Address [address] [place] [address] Care Team Providers Care Director Of Annual Giving Name Role Phone Emigdio Veronica MD Primary Care Provider + Starr Paige MD Unavailable [phone] Dana Padilla MD Unavailable Reason for Visit * Reason Comments Telemedicine Phone Call COVID-19 Encounter Details Date Type Department Care Team (Late st Contact Info) Description 03/23/2022 14:30 EDT Telemedicine [facility] Adult Primary Care - [place] [address] [place] [address] Emigdio Veronica MD [address] [place] [address] COVID-19 virus infection (Primary Dx); Chronic fatigue; Insomnia, unspecified type; HUEY (obstructive sleep apnea) [...] 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 (5 years old or older) Answer Date of Assessment Author No 02/10/2022 18:24 Otiilo Romero, KENN * Do you have difficulty dressing or bathing? (5 years old or older) Answer Date of Assessment Author No 02/10/2022 18:24 Otilio Romero, RN * Because of a physical, mental, [...] needed for Nausea. 30 Tablet 1 03/23/2022 05/04/2022 traZODone (DESYREL) 100 mg tablet Take 1 Tablet by mouth at bedtime. 90 Tablet 1 03/23/2022 05/04/2022 documented in this encounter Progress Notes * Emigdio Veronica MD - 03/23/2022 1430 EDT TELEMEDICINE PHONE VISIT The concept [...] medical or mental health care. The patient denies any current pain The following staff and their role did [...] y.o. female with PMHx of COPD, thrombocytopenia, NAFLD, chronic pain syndrome on opiate therapy who presents with a CC: Of COVID- 19 infection Tara presents via telemedicine phone visit today to discuss her recent diagnosis of COVID-19. She reports that she developed symptoms of increased fatigue, shortness of breath, productive cough and nausea around 03/19/2022. She states that the majority of the symptoms are chronic for her but appear to acutely worsen prompting her to use a home COVID-19 antigen test. She reports that her test returned positive on 03/19. Now on day 4 of symptoms she reports that the majority of her respiratory symptoms have begun to improve. She denies any significant fevers or chills. She confirms that she has home oxygen and has been using it as previously prescribed at 2 L/min during the evenings. She has not noticed any episodes of severe hypoxia and states that on oxygen her O2 saturation remains in the mid 90s. She reports that her symptoms of nausea are moderately controlled with previously prescribed ondansetron though she is requesting a switch from dissolving tablets to regular tablets. We discussed the pros and cons of antiviral therapy for her COVID-19 infection specifically Paxlovid. We discussed that it may interfere with several of her medications including her oxycodone. Gena expresses a desire to hold off on Paxil with therapy given her improving symptoms. She continues to note a very high burden of insomnia and poor sleep. We attempted at our previous encounter to order an auto titrating CPAP machine for management of her under controlled and chronic HUEY. Unfortunately due to the length of time it has been since her last sleep study her insurance will not cover an auto titrating CPAP at this time. She is scheduled to reestablish with the sleep center next week. In the interim she would like to trial a return to trazodone medical therapy noting very poor response to amitriptyline. We discussed potentially trialing another TCA such as doxepin which is FDA approved for insomnia, but Gena reports that years ago she had trialed doxepin with little improvement in her sleep quality. We discussed that it was likely no medical therapy will be sufficient to improve her sleep without also addressing her HUEY and Gena expresses understanding ofthis fact but is hoping to improve some of her sleep quality with a sleep aid. ROS as above O: There were no vitals taken for this visit. Recent Labs/Imaging: Reviewed in epic A and P: Diagnoses and all orders for this visit: COVID-19 virus infection: Symptoms improving with no dramatic worsening of patient's chronic dyspnea related to COPD. Following extensive discussion of the risks versus potential benefits the patientdenies interest in paxlovid therapy at this time. -Encourage conservative treatment with rest, adequate hydration and use of previously prescribed oxygen therapy and albuterol as needed -We will continue to monitor. Discussed that if symptoms were to dramatically worsen specifically symptoms of fever or dyspnea to present to the nearest ER for evaluation and management. Chronic fatigue, Insomnia, HUEY (obstructive sleep apnea): Insomnia likely multifactorial in nature.Discussed likely primary etiology of poorly controlled HUEY requiring CPAP therapy. Patient firm shehas a follow-up visit with sleep medicine to review her HUEY management options. Patient also requesting a return to trazodone therapy to help with sleep quality -Heavily encourage compliance with upcoming sleep medicine appointment -Patient denies interest in continuing amitriptyline or switching to doxepin for insomnia treatment -Per patient request will restart trazodone at 100 mg daily. Discussed that if sleep remains poor over the next 2 weeks can increase trazodone to 200 mg QHS Other order - ondansetron (ZOFRAN) 4 mg tablet; Take 1 Tablet by mouth every 8 hours as needed for Nausea. F/u: Return in about 1 month (around 04/23/2022). For insomnia, COPD, NAFLD, chronic pain I spent a total of 30 minutes with this patient today over the phone, in chart review and in documentation and 20 minutes of that time was spent on education and counseling for COVID-19, chronic fatigue, HUEY, insomnia. Some of this note was transcribed with [employer] dictating software. While it was proofread, it may still contain unnoticed grammatical or word errors due to incorrect transcribing. Emigdio Veronica MD 03/25/2022 15:52 documented in this encounter Plan of Treatment Upcoming Encounters Date Type Department Care Team (Late st Contact Info) Description 01/04/2025 13:00 EST Office Visit [facility] Ophthalmology [address] [phone] Gagandeep Rome MD [address] [place] [address] [address] [place] [phone] 02/11/2025 13:30 EDT Telemedicine [facility] Hematology & Oncology [address] [phone] Dana Padilla MD [address] [place] [address] [address] [place] [phone] documented as of this encounter Visit Diagnoses Diagnosis COVID-19 virus infection- Primary Chronic fatigue Other malaise and fatigue Insomnia, unspecified type HUEY (obstructive sleep apnea) Obstructive sleep apnea (adult) (pediatric) documented in this encounter Discontinued Medications Medication Sig Discontinue Reason Start Date End Da te amitriptyline (ELAVIL) 25 mg tablet Take 1 Tablet by mouth at bedtime. Alternate therapy 11/25/2021 03/23/2022 ondansetron (ZOFRAN-ODT) 4 mg disintegrating tablet TAKE 1 TABLET BY MOUTH EVERY 4 TO 6 HOURS NEEDED FOR NAUSEA. Alternate therapy 12/21/2021 03/23/2022 documented as of this encounter Care Teams Director Of Annual Giving Relationship Specialty Start Date End Date Emigdio Veronica MD [address] [place] [phone] PCP - General Internal Medicine - Primary Care 05/22/20 02/21/24 Starr Paige MD [address] [place] [phone] Hematology 10/08/21 06/09/22 Dana Padilla MD [address] [place] [address], [address] [place] [phone] Hematology 01/13/22 06/09/22 documented as of this encounter
--- OUTSIDE RECORDS SUMMARY | 2024-11-22 17:05 | XMS_ITS | Encounter Summary ---
Author Organization [facility] Address [address] [place] [address] Care Team Providers Care Pick Up And Delivery Driver Name Role Phone Emigdio Veronica MD Primary Care Provider + Starr Paige MD Unavailable [phone] Dana Padilla MD Unavailable Encounter Details Date Type Department Care Team (Late st Contact Info) Description 04/16/2022 10:30 EDT Phlebotomy Only [facility] Services - [address] [phone] Fluorescent Lamp Replacer, [facility] Portal vein thrombosis; Upper GI bleed; Thrombocytopenia (HCC-CMS) (HCC); Hypothyroidism, unspecified type; Screening for lipoid disorders Social History Tobacco Use Types Packs/Day Years [...] 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 on file [...] Description 01/04/2025 13:00 EST Office Visit [facility] Ophthalmology - [address] [phone] Gagandeep Rome MD [address] [place] [address], [facility] [address] [place] [phone] 02/11/2025 13:30 EDT Telemedicine [facility] Hematology & Oncology [address] [phone] Dana Padilla MD [address] [place] [address], [facility] [address] [place] [phone] documented as of this encounter Procedures Procedure Name Priority Date/Time Associated Diagnosis Comments THYROID CASCADE Routine 04/16/2022 10:45 EDT Hypothyroidism, unspecified type COMPLETE BLOOD COUNT AND DIFFERENTIAL Routine 04/16/2022 10:45 EDT Portal vein thrombosis Thrombocytopenia (HCC-CMS) (HCC) LIPID PROFILE (INCLUDES CHOLESTEROL, TRIGLYCERIDES, HDL, LDL) Routine 04/16/2022 10:45 EDT Screening for lipoid disorders documented in this encounter Results * LIPID PROFILE (INCLUDES CHOLESTEROL, TRIGLYCERIDES, HDL, LDL) (04/16/2022 10:45 EDT) Cholesterol 143 <200 mg/dL 04/16/2022 12:14 EDT [facility] Comment:Note that therapeuti c goals will differ between patients based on cardiac risk factors and current medical therapy. HDL 59 >=50 mg/dL 04/16/2022 12:14 EDT [facility] Comment:Note that therapeuti c goals will differ between patients based on cardiac risk factors and current medical therapy. LDL, Calculated 72 <160 mg/dL 12:14 EDT [facility] Comment:Note that therapeuti c goals will differ between patients based on cardiac risk factors and current medical therapy. Triglyceride 59 <=150 mg/dL 04/16/2022 12:14 EDT [facility] Comment:Note that therapeuti c goals will differ between patients based on cardiac risk factors and current medical therapy. Chol/HDL Ratio 2.4 See Note 04/16/2022 12:14 EDT [facility] Comment:No reference range h as been established for CHOL/HDL ratio. Non HDL Cholesterol 84 <160 mg/dL 04/16/2022 12:14 T [facility] Comment:Note that therapeuti c goals will differ between patients based on cardiac risk factors and current medical therapy. Blood VENOUS BLOOD / Unknown Venipuncture / Unknown 04/16/2022 10:45 EDT 04/16/2022 10:45 EDT us Emigdio Veronica MD CHEMISTRY & BLOOD GAS OR DERABLES Final Result [facility] [address] [place] [address] * THYROID CASCADE (04/16/2022 10:45 EDT) TSH 3.45 0.47 - 4.68 mIU/L 04/16/2022 12:48 EDT [facility] Blood VENOUS BLOOD / Unknown Venipuncture / Unknown 04/16/2022 10:45 EDT 04/16/2022 10:45 EDT Narrative [facility] - 04/16/2022 12:48 EDT NOTE: The results of this assay can be falsely lowered due to the consumption of Biotin. us Emigdio Veronica MD CHEMISTRY & BLOOD GAS OR DERABLES Final Result [facility] [address] [place] [address] * (ABNORMAL) COMPLETE BLOOD COUNT AND DIFFERENTIAL (04/16/2022 10:45 EDT) WBC 3.22(L) 4.00 - 12.40 K/cmm 04/16/2022 11:56 [facility] RBC 3.69(L) 3.86 - 5.04 M/cmm 04/16/2022 11:56 [facility] Hemoglobin 10.8(L) 11.6 - 15.2 gm/dL 04/16/2022 11:56 [facility] HCT 32.1(L) 34.9 - 44.4 % 04/16/2022 11:56 [facility] MCV 87 81 - 98 fl 04/16/2022 11:56 [facility] MCH 29.3 26.7 - 33.3 pg 04/16/2022 11:56 [facility] MCHC 33.6 32.1 - 35.9 gm/dL 04/16/2022 11:56 [facility] RDW-CV 14.8(H) <14.7 % 04/16/2022 11:56 [facility] RDW-SD 46.4 <50.4 fl 04/16/2022 11:56 [facility] PLT 82(L) 141 - 377 K/cmm 04/16/2022 11:56 [facility] MPV 10.3 9.5 - 12.7 fl 04/16/2022 11:56 [facility] % Neutrophils 70.5 % 04/16/2022 11:56 [facility] % Lymphocytes 11.5 % 04/16/2022 11:56 [facility] % Monocytes 14.0 % 04/16/2022 11:56 [facility] % Eosinophils 3.1 % 04/16/2022 11:56 [facility] % Basophils 0.9 % 04/16/2022 11:56 [facility] % Immature Grans 0.0 % 04/16/20 11:56 [facility] Absolute Neutrophils 2.27 2.20 - 8.85 K/cmm 04/16/2022 11:56 [facility] Absolute Lymphocytes 0.37(L) 1.09 - 3.30 K/cmm 04/16/2022 11:56 [facility] Absolute Monocytes 0.45 0.10 - 0.80 K/cmm 04/16/2022 11:56 [facility] Absolute Eosinophils 0.10 0.03 - 0.61 K/cmm 04/16/2022 11:56 [facility] ABS Basophils 0.03 0.01 - 0.11 K/cmm 04/16/2022 11:56 [facility] Absolute Immature Grans 0.00 0.00 - 0.06 K/cmm 04/16/2022 11:56 [facility] Type of Differential: Auto 04/16/2022 11:56 [facility] Blood VENOUS BLOOD / Unknown Venipuncture / Unknown 04/16/2022 10:45 EDT 04/16/2022 10:45 EDT Dana Padilla MD PACKAGES & DNA PROBE ORDERABLES Final Result [facility] [address] [place] [address] documented in this encounter Visit Diagnoses Diagnosis Portal vein thrombosis Upper GI bleed Hemorrhage of gastrointestinal tract, unspecified Thrombocytopenia (HCC-CMS) Thrombocytopenia, unspecified Hypothyroidism, unspecified type Screening for lipoid disorders documented in this encounter Care Teams Pick Up And Delivery Driver Relationship Specialty Start Date End Date Emigdio Veronica MD [address] [place] [phone] PCP - General Internal Medicine - Primary Care 05/22/20 02/21/24 Starr Paige MD [address] [place] [phone] Hematology 10/08/21 06/09/22 Dana aPdilla MD [address] [facility] [address] [place] [phone] Hematology 01/13/22 06/09/22 documented as of this encounter
--- OUTSIDE RECORDS SUMMARY | 2024-11-22 17:05 | XMS_ITS | Encounter Summary ---
Author Organization [facility] Address [address] [place] [address] Care Team Providers Care Sign Fabricator Name Role Phone Emigdio Veronica MD Primary Care Provider + Starr Paige MD Unavailable [phone] Dana Padilla MD Unavailable Reason for Visit * Reason Comments Abdominal Pain Pt has had recent hi story with splenic vein blood clots, pt has also had GI bleed in the apst requiring blood transfusions. Pt coming in with CP and abdominal pain, also bloody stools. States, I just don't feel good. 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 No / Unsure 04/22/2022 19:22 EDT documented as of this encounter Last Filed Vital Signs Vital Sign Reading Time Taken Comments Blood Pressure 114/58 04/23/20220 EDT Pulse 93 04/22/20221920 EDT Temperature 36.3 ??C (97.3 ??F) 04/22/20221920 EDT Respiratory Rate 15 04/23/2022 0435 EDT Oxygen Saturation 96% 04/23/2022 043 EDT Inhaled Oxygen Concentration - - Weight 108.9 kg (240 lb) 04/22/20221920 EDT Height 162.6 cm (5' 4) 04/22/20221920 EDT Body Mass Index 41.2 04/22/20221920 EDT documented in this encounter Functional Status [...] this encounter Discharge Instructions * Discharge Instructions* Christine Layne MD - 04/23/2022 4:21 EDT You came to the ED with continued abdominal pain. You got labs and imaging that was reassuring. Youwere likely a little dry. Make sure you continue to eat and drink. Please follow up with your primary care doctor due to continued pain. Return to the ED if your pain becomes significantly worse, cannot tolerate food or drink, feel as though you may pass out, or other concerning symptoms. documented in this encounter Medications at [...] HFA aerosol inhaler inhalerIndicatio ns:COPD with asthma ([facility]) INHALE 2 PUFFS DIRECTED DAILY 10.2 Each 1 04/14/2022 2 traZODone (DESYREL) 100 mg tablet Take 1 Tablet by mouth at bedtime. 90 Tablet 1 03/23/2022 2 documented as of this encounter Discharge Disposition Disposition Code Departure Means Destination Home or Self Nursing Home documented in this encounter ED Notes * Ruth Yanez MD - 04/23/2022 0453 EDT I performed a history and exam of this patient and discussed the case with the PA. I reviewed this individual's note and I concur with the documented findings and plan of care except as documented differently. ROS as per PA chart. Please see primary note by the PA. Nursing notes reviewed and vital signs reviewed. A medical screening exam was performed. Tara Boothe is a 61 y.o. female with complex medical history including portal vein thrombosis, COPD, GIB, who presents with dyspnea, severe abdominal pain, nausea, and dark stool. Exam significant for uncomfortable appearing with generalized abdominal pain to palpation, writhingon bed. Plan for pain control, antiemetics, labs, CTA given history of portal vein and splenic vein thrombosis. Signed out to Dr. Mendoza pending CT imaging and reassessment. Final diagnoses: Generalized abdominal pain * Samson Mendoza MD - 04/23/2022 0155 EDT This patient received an evaluation and medical screening exam for emergent medical conditions at the [facility] on 04/23/2022. This note was created and authored by Christine Layne MD working under the supervision of Samson Mendoza MD. This documentation is recorded by Fanta Toner acting as Scribe under the direction and presence of Samson Mendoza MD and Christine Layne MD George, Douglas C, MD and Christine Layne MD: We personally performed the services recorded by the scribe in our presence. We confirm the scribe's documentation has been reviewed by us to accurately and completely record our work, treatment, procedures, and medical decision making. ED Attending's Supervisory Statement I, Samson Mendoza MD, performed a history and exam of this patient and discussed the case with the resident. I have reviewed and edited this note, and the documentation is consistent with my findings, assessment and plan. I fully participated in the medical decision making. Patient reported improvement in symptoms after CT scan. Hg stable. Labs reassuring. Patient requesting discharge home after CT results. Per report patient declined rectal exam yet when we discussed this with the patient she was adamant that is was completed and normal. Discussed concerns over potential GI bleeding given dark stools, yet HG stable from days ago and patient refusing another rectalexam. Patient aware of concerns and need to return. Discussed expectant course, home management, strict return precautions and plan for follow-up care prior to discharge. Sign-out Note Tara Boothe is a 61 y.o. female with a history of chronic respiratory failure, COPD, HUEY and chronic pain syndrome who presents to the ED for complaints of shortness of breath and abdominal pain.Patient states she has felt unwell for couple days, started having some upper abdominal pain 2 to 3days ago and is gradually worsened. She currently notes severe abdominal pain, primarily in her upper abdomen. Care and work-up prior to sign out includes a medical evaluation, an EKG and unremarkable lab studies. I assumed care of patient from Hiren Smith PA-C with CT Chest PE protocol and disposition pending. After I assumed care the patient had: Imaging obtained was reviewed and independently interpreted: CT ANGIO CHEST PE PROTOCOL Preliminary Result 1. No evidence of acute or chronic pulmonary emboli in the main, lobar, or segmental pulmonary arteries. Small apparent foci of hypoattenuation in the lower lobe subsegmental pulmonary arteries are favored artifactual, but a small subsegmental pulmonary emboli cannot be entirely excluded. 2. Findings of minimal interlobular septal thickening in the apices and lung bases with faint mosaic attenuation in the bases are similar to prior exam in 2020 and likely reflect mild chronic pulmonary edema. Otherwise no acute findings in the chest. Full report to follow in the morning. CT ANGIO ABDOMEN PELVIS Preliminary Result 1. No acute abnormality in the abdomen or pelvis. No evidence of occlusion or vascular malformationof the major arterial vasculature of the abdomen and pelvis. 2. Extensive portal and splenic venous thrombosis is again seen and is not significantly changed. 3. Unchanged splenic artery aneurysm. 4. Additional chronic and incidental findings as detailed above. On reevaluation, the patient was made aware of her reassuring imaging and was amenable with the plan for discharge home. Prior to discharge usual and customary precautions were reviewed with the patient and/or family including follow-up instructions and reasons to return to the Emergency Department if condition worsens, does not improve as expected, or other new concerns arise. Final diagnoses: Generalized abdominal pain * Hiren Smith PA-C - 04/22/20228 EDT Emergency Department Visit Assessment and ED Course Patient with history of portal vein thrombosis with small bleed in January, presents with complaints of shortness of breath and abdominal pain. Symptoms have been present for 2 to 3 days. She is tender though does not appear acutely ill. Case discussed with the ED attending, Dr. Yanez. CT angio abdomen pelvis as well as PE study were recommended, discussed with radiology. Has an MUSA, given 500mL LR. Care transferred to the overnight attending pending the studies. Final diagnoses: Generalized abdominal pain Disposition: Discharged Chief complaint: Chief Complaint Patient presents with ??? Abdominal Pain Pt has had recent history with splenic vein blood clots, pt has also had GI bleed in the apst requiring blood transfusions. Pt coming in with CP and abdominal pain, also bloody stools. States, I just don't feel good. HPI Tara Boothe is a 61 y.o. female with a history of portal vein thrombosis, COPD, not anticoagulated who presents to the ED for complaints of shortness of breath and abdominal pain. Patient states she has felt unwell for couple days, started having some upper abdominal pain 2 to 3 days ago and isgradually worsened. She currently notes severe abdominal pain, primarily in her upper abdomen. She states yesterday she had melanotic stool, has not had a bowel movement today. She denies fever, reports chills. Patient reports nausea, no vomiting. Denies urinary symptoms. States she developed shortness of breath 1 to 2 days ago, denies chest pain though has had some palpitations. History was provided by: the patient Patient's pertinent PMH, FH, SH were reviewed and edited as necessary. ROS A focused review of systems was performed. Pertinent positives and negatives as noted in HPI. Physical Exam BP 114/58 Pulse 93 Temp 36.3 ??C (97.3 ??F) (Temporal) Resp 15 Ht 162.6 cm (64) Wt (!) 108.9 kg (240 lb) SpO2 96% BMI 41.20 kg/m?? A medical screening exam was performed. Physical Exam Vitals and nursing note reviewed. Constitutional: General: She is not in acute distress. Appearance: She is well-developed and well-nourished. She is obese. She is not toxic-appearing. HENT: Head: Atraumatic. Eyes: Extraocular Movements: EOM normal. Cardiovascular: Rate and Rhythm: Normal rate. Pulmonary: Effort: Pulmonary effort is normal. Comments: Breathing non labored Abdominal: Palpations: Abdomen is soft. Tenderness: There is abdominal tenderness. There is guarding. There is no rebound. Genitourinary: Comments: Declined rectal exam Musculoskeletal: Cervical back: Normal range of motion. Skin: General: Skin is warm and dry. Neurological: Mental Status: She is alert and oriented to person, place, and time. Motor: Motor function is intact. An EKG was obtained and independently interpreted. Laboratory data was reviewed and independently interpreted. Procedures Procedures * Cameron Shin - 04/22/20221927 EDT 12 Lead EKG Performed by CAMERON SHIN and shown to MD Armando. * Myriam Haas RN - 04/22/20221919 EDT Chief Complaint Patient presents with ??? Abdominal Pain Pt has had recent history with splenic vein blood clots, pt has also had GI bleed in the apst requiring blood transfusions. Pt coming in with CP and abdominal pain, also bloody stools. States, I just don't feel good. documented in this encounter Plan of Treatment Upcoming Encounters Date Type Department Care Team (Late st Contact Info) Description 01/04/2025 13:00 EST Office Visit [facility] Ophthalmology - [address] [phone] Gagandeep Rome MD [address] [place] [address], [facility] [address] [place] [phone] 02/11/2025 13:30 EDT Telemedicine [facility] Hematology & Oncology - [address] [phone] Dana Padilla MD [address] [place] [address], [facility] [address] [place] [phone] documented as of this encounter Procedures Procedure Name Priority Date/Time Associated Diagnosis Comments ECG REPORT - SCANNED 05/18/2022 10:17 EDT POCT URINE DIPSTICK, CLINITEK STAT 04/23/2022 2:46 EDT POCT CSN BARCODE URINE DIPSTICK STAT 04/23/2022 2:45 EDT POCT URINE CLINITEK (DIPSTICK) - DOES NOT REFLEX STAT 04/23/2022 2:[address] ANGIO CHEST PE PROTOCOL STAT 04/23/2022 2:[address] ANGIO ABDOMEN PELVIS STAT 04/23/2022 2:16 EDT POCT US ED GUIDANCE PIV 04/22/2022 22:50 EDT HOLD GREEN TOP Routine 04/22/2022 21:21 EDT HOLD BLUE TOP STAT 04/22/2022 21:03 EDT TROPONIN I STAT 04/22/2022 21:03 EDT COMPLETE BLOOD COUNT AND DIFFERENTIAL STAT 04/22/2022 21:03 EDT TYPE AND SCREEN STAT 04/22/2022 21:03 EDT MAGNESIUM STAT 04/22/2022 21:03 EDT LIPASE STAT 04/22/2022 21:03 EDT HEPATIC FUNCTION PANEL (ALB,ALK PHOS,ALT,AST,DBIL,TOT LUIS,TOT PROT) STAT 04/22/2022 21:03 EDT BASIC METABOLIC PANEL (BMP) STAT 04/22/2022 21:03 EDT EKG 12-LEAD STAT 04/22/2022 19:13 EDT documented in this encounter Results * ECG REPORT - SCANNED (05/18/2022 10:17 EDT) 05/18/2022 10:1 7 EDT us Scan 2 Ladle Mechanic PROCEDURE/MINOR SURGICAL OR DERABLES Final Result * (ABNORMAL) POCT URINE DIPSTICK, CLINITEK (04/23/2022 2:46 EDT) Color, UA Yellow Yellow 04/23/2022 2:48 EDT [facility] Clarity, UA Clear Clear 04/23/2022 2:48 EDT [facility] Glucose, UA Negative Negative mg/dL 04/23/2022 2:48 EDT [facility] Bilirubin, UA Negative Negative 04/23/2022 2:48 EDT [facility] Ketones, UA Negative Negative mg/dL 04/23/2022 2:48 EDT [facility] Specific [place], Urine 1.010 1.001 - 1.035 04/23/2022 2:48 EDT [facility] Blood, UA 2+(A) Negative 04/23/2022 2:48 EDT [facility] pH, UA 5.5 <=8 04/23/2022 2:48 EDT [facility] Protein, UA Negative Negative mg/dL 04/23/2022 2:48 EDT [facility] Urobilinogen, UA 0.2 0.2 - 1.0 EU/dL 04/23/2022 2:48 EDT [facility] Nitrite, UA Negative Negative 04/23/2022 2:48 EDT [facility] Leuk Esterase Negative Negative 04/23/2022 2:48 EDT [facility] HN LAB COMMENT (CLINITEK, UR) Test performed at Emergency Department 04/23/2022 2:48 EDT [facility] Urine URINE SPECIMEN COLLECTION, CLEAN CATCH / Unknown 04/23/2022 2:46 EDT 04/23/2022 2:48 EDT us Hiren Smith PA-C POINT OF CARE TEST ORDERABLE S Final Result [facility] [address] [place] [address] * POCT CSN BARCODE URINE DIPSTICK (04/23/2022 2:45 EDT) Urine URINE SPECIMEN COLLECTION, CLEAN CATCH / Unknown Urine Collect / Unknown 04/23/2022 2:45 EDT 04/23/2022 2:45 EDT us Hiren Smith PA-C LAB INFO SERVICE AND SUPPORT & PHONE RESULT Final Result [facility] [address] [place] [address] * CT ANGIO ABDOMEN PELVIS (04/23/2022 2:16 EDT) Anatomical Region Laterality Modality Body, Abdomen, Pelvis, Abdomen and Pelvis Computed Tomography 04/23/2022 11:5 2 EDT Impressions 04/23/2022 11:52 EDT 1. ??No acute abnormality in the abdomen or pelvis. No evidence of occlusion or vascular malformation of the major arterial vasculature of the abdomen and pelvis. 2. ??Extensive portal and splenic venous thrombosis is again seen and is not significantly changed. 3. ??Unchanged splenic artery aneurysm. 4. ??Additional chronic and incidental findings as detailed above. I have personally reviewed the images and the above interpretation and agree with the findings. Narrative 04/23/2022 11:[address] Angiogram of the Abdomen and Pelvis CLINICAL HISTORY: ??Abdominal pain, history of portal vein thrombosis TECHNIQUE: Helical computed tomography was performed through the abdomen and pelvis before and after the uneventful intravenous administration of 100 mL of Omnipaque, including arterial and venous phase imaging. ??Oral contrast was not administered. Multiplanar reformatted images were generated from the source data. Maximum intensity projection and volume rendered 3-D reconstructions were also reviewed on an independent workstation. Total DLP is 5176 mGy*cm. COMPARISON: ??CT angiogram abdomen and pelvis 02/10/2022 FINDINGS: VASCULAR STRUCTURES: The abdominal aorta is normal in course and caliber. ?? The major mesenteric vessels in the abdomen, including the celiac axis, superior mesenteric artery, inferior mesenteric artery, and their respective branches, are patent. Unchanged saccular splenic artery aneurysm measuring 1.5 cm series 501 image 95. Status post prior splenic artery embolization. 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 All renal arteries are patent. The right common, internal, and external iliac arteries are patent. The right common femoral artery is patent. The partially imaged right superficial femoral and profunda femoris arteries are patent. The left common, internal, and external iliac arteries are patent. The left common femoral artery is patent. The partially imaged left superficial femoral and profunda femoris arteries are patent. There is no evidence of active extravasation of contrast. 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 INFERIOR THORAX/LUNG BASES: Refer to dedicated CT angiogram chest performed concurrently. LIVER and gallbladder: Redemonstrated cirrhotic configuration of the liver. No suspicious focal liver lesion. Status post cholecystectomy. Prominence of the extrahepatic bile ducts likely related to postcholecystectomy state. PANCREAS: ??Unremarkable. Normal caliber main pancreatic duct. 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 ADRENAL GLANDS: ??Unremarkable. GENITOURINARY: The kidneys enhance normally. There is no hydroureteronephrosis. The bladder is grossly within normal limits. GASTROINTESTINAL: There is sigmoid diverticulosis without associated inflammation. No obstruction. Status post appendectomy. GENERAL: No free air, free fluid, or organized intraperitoneal fluid collection. LYMPH NODES: No enlarged lymph nodes identified within the abdomen or pelvis. OSSEOUS STRUCTURES: Unremarkable. No aggressive osseous lesions identified. SOFT TISSUES: Redemonstrated prior right abdominal wall ventral hernia repair. No bowel-containing hernia. Procedure Note Bobby Greenberg MD - 04/23/2022 CT Angiogram of the Abdomen and Pelvis CLINICAL HISTORY: Abdominal pain, history of portal vein thrombosis TECHNIQUE: Helical computed tomography was performed through the abdomenand pelvis before and after the uneventful intravenous administration of100 mL of Omnipaque, including arterial and venous phase imaging. Oralcontrast was not administered. Multiplanar reformatted images weregenerated from the source data. Maximum intensity projection and volumerendered 3-D reconstructions were also reviewed on an independentworkstation. Total DLP is 5176 mGy*cm. COMPARISON: CT angiogram abdomen and pelvis 02/10/2022 FINDINGS: VASCULAR STRUCTURES: The abdominal aorta is normal in course and caliber. The major mesenteric vessels in the abdomen, including the celiac axis,superior mesenteric artery, inferior mesenteric artery, and theirrespective branches, are patent. Unchanged saccular splenic arteryaneurysm measuring 1.5 cm series 501 image 95. Status post prior splenicartery embolization. 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 All renal arteries are patent. The right common, internal, and external iliac arteries are patent. Theright common femoral artery is patent. The partially imaged rightsuperficial femoral and profunda femoris arteries are patent. The left common, internal, and external iliac arteries are patent. Theleft common femoral artery is patent. The partially imaged leftsuperficial femoral and profunda femoris arteries are patent. There is no evidence of active extravasation of contrast. Veins: Extensive portal and splenic venous thrombosis not significantlychanged compared to prior.) Gastric varices are again seen. INFERIOR THORAX/LUNG BASES: Refer to dedicated CT angiogram chestperformed concurrently. LIVER and gallbladder: Redemonstrated cirrhotic configuration of theliver. No suspicious focal liver lesion. Status post cholecystectomy.Prominence of the extrahepatic bile ducts likely related topostcholecystectomy state. PANCREAS: Unremarkable. Normal caliber main pancreatic duct. SPLEEN: Redemonstrated partial infarction of the spleen compatible withprior embolization. ADRENAL GLANDS: Unremarkable. GENITOURINARY: The kidneys enhance normally. There is nohydroureteronephrosis. The bladder is grossly within normal limits. GASTROINTESTINAL: There is sigmoid diverticulosis without associatedinflammation. No obstruction. Status post appendectomy. GENERAL: No free air, free fluid, or organized intraperitoneal fluidcollection. LYMPH NODES: No enlarged lymph nodes identified within the abdomen orpelvis. OSSEOUS STRUCTURES: Unremarkable. No aggressive osseous lesionsidentified. SOFT TISSUES: Redemonstrated prior right abdominal wall ventral herniarepair. No bowel-containing hernia. IMPRESSION 1. No acute abnormality in the abdomen or pelvis. No evidence ofocclusion or vascular malformation of the major arterial vasculature ofthe abdomen and pelvis. 2. Extensive portal and splenic venous thrombosis is again seen and isnot significantly changed. 3. Unchanged splenic artery aneurysm. 4. Additional chronic and incidental findings as detailed above. I have personally reviewed the images and the above interpretation andagree with the findings. us Hiren Smith PA-C IMG CT ORDERABLES Final Resu lt * CT ANGIO CHEST PE PROTOCOL (04/23/2022 2:16 EDT) Anatomical Region Laterality Modality Chest Computed Tomogra phy 04/23/2022 7:11 EDT Impressions 04/23/2022 7:11 EDT 1. ??No pulmonary emboli. Suboptimal evaluation of subsegmental regions of the lower lobes due to respiratory artifact. 2. ??Mild hydrostatic edema within the lungs. I have personally reviewed the images and the above interpretation and agree with the findings. Narrative 04/23/2022 7:[address] ANGIO CHEST PE PROTOCOL ??04/23/2022 1:15 AM Clinical History/Comments: SOB, upper abdominal pain, h/o clots; Pulmonary embolism (PE) suspected, high prob Technique: CT angiogram of the chest was performed with the IV administration of contrast material during the pulmonary arterial phase of enhancement. 3D advanced post-processing was performed utilizing a combination of MIP and MPR techniques with physician participation and supervision. Comparison: CT angiogram chest PE protocol 07/16/2021. Findings: Opacification of the pulmonary vasculature is good. No pulmonary emboli are evident. Small apparent foci of hypoattenuation in right lower lobe subsegmental pulmonary arteries, for example axial series 901 image 331 is attributable to respiratory artifact. Similar apparent foci of hypoattenuation in some of the subsegmental pulmonary arteries in the left lower lobe are also seen. Lower neck: No abnormalities. Chest wall soft tissues: No abnormalities. Mediastinum and leobardo: Stable more numerous than normal nonenlarged mediastinal lymph nodes. ?? Heart and mediastinal vasculature: ??Mild coronary calcium. Large airways: ??Redemonstrated mild peribronchovascular interstitial edema. Scattered secretions are present in the central airways. Lungs: ??Unchanged minimal interlobular septal thickening in the apices and lung bases with a faint mosaic attenuation in the lung bases. Minimal bibasilar dependent atelectasis. ??Flattened subpleural nodule along the left hemidiaphragm felt to reflect a lymph node (sagittal #245). Pleura: No acute findings. Upper abdomen (limited to upper abdomen, not optimized for abdominal imaging): Refer to dedicated CT angiogram abdomen and pelvis performed concurrently. Bones: ??No acute findings. Procedure Note Lazaro Cook MD - 04/23/2022 CT ANGIO CHEST PE PROTOCOL 04/23/2022 1:15 AM Clinical History/Comments: SOB, upper abdominal pain, h/o clots; Pulmonary embolism (PE) suspected,high prob Technique: CT angiogram of the chest was performed with the IV administration ofcontrast material during the pulmonary arterial phase of enhancement. 3Dadvanced post-processing was performed utilizing a combination of MIP andMPR techniques with physician participation and supervision. Comparison: CT angiogram chest PE protocol 07/16/2021. Findings: Opacification of the pulmonary vasculature is good. No pulmonary emboliare evident. Small apparent foci of hypoattenuation in right lower lobesubsegmental pulmonary arteries, for example axial series 901 image 331 isattributable to respiratory artifact. Similar apparent foci ofhypoattenuation in some of the subsegmental pulmonary arteries in the leftlower lobe are also seen. Lower neck: No abnormalities. Chest wall soft tissues: No abnormalities. Mediastinum and leobardo: Stable more numerous than normal nonenlargedmediastinal lymph nodes. Heart and mediastinal vasculature: Mild coronary calcium. Large airways: Redemonstrated mild peribronchovascular interstitialedema. Scattered secretions are present in the central airways. Lungs: Unchanged minimal interlobular septal thickening in the apices andlung bases with a faint mosaic attenuation in the lung bases. Minimalbibasilar dependent atelectasis. Flattened subpleural nodule along theleft hemidiaphragm felt to reflect a lymph node (sagittal #245). Pleura: No acute findings. Upper abdomen (limited to upper abdomen, not optimized for abdominalimaging): Refer to dedicated CT angiogram abdomen and pelvis performedconcurrently. Bones: No acute findings. IMPRESSION 1. No pulmonary emboli. Suboptimal evaluation of subsegmental regions ofthe lower lobes due to respiratory artifact. 2. Mild hydrostatic edema within the lungs. I have personally reviewed the images and the above interpretation andagree with the findings. us Hiren Smith PA-C IMG CT ORDERABLES Final Resu lt * POCT US ED GUIDANCE PIV (04/22/2022 22:50 EDT) Anatomical Region Laterality Modality Other 04/22/2022 22:5 0 EDT Narrative 04/24/2022 19:13 EDT Study Date and Time: 2022-04-22 22:50 Study Author: Avni Humphries ED Procedural Guidance - PIV: Indications: ?Indications [...] flush in lumen) ?Comments: N/A Signed by Avni Humphries on 2022-04-23 00:56 Physician Attestation: I reviewed and independently interpreted these images. ??I was present for the brown and critical portions of the ultrasound imaging and agree with or have edited the findings as documented. Final Signature by Kathleen ARCHER on 2022-04-24 19:13 Procedure Note Kathleen Castro MD - 04/24/2022 Study Date and Time: 2022-04-22 22:50 Study Author: Avni Humphries ED Procedural Guidance - PIV: Indications: Indications [...] flush in lumen) Comments: N/A Signed by Avni Humphries on 2022-04-23 00:56 Physician Attestation: I reviewed and independently interpreted theseimages. I was present for the brown and critical portions of the ultrasoundimaging and agree with or have edited the findings as documented. Final Signature by Kathleen ARCHER on 2022-04-24 19:13 us Kathleen Castro MD IMG POCT US ORDERABLE S Final Result * HOLD GREEN TOP (04/22/2022 21:21 EDT) Hold Hold 04/22/2022 22:31 EDT [facility] Blood VENOUS BLOOD / Unknown Venipuncture / Unknown 04/22/2022 21:21 EDT 04/22/2022 21:23 EDT Hiren Smith PA-C LAB INFO SERVICE AND SUPPORT & PHONE RESULT Final Result Performing Organization Address [facility]/ZIP Co de Phone Number [facility] [address] [place] [address] * LIPASE (04/22/2022 21:03 EDT) [facility] Lipase 91 <251 U/L 04/22/2022 21:34 EDT [facility] Blood VENOUS BLOOD / Unknown Venipuncture / Unknown 04/22/2022 21:03 EDT 04/22/2022 21:11 EDT us Jay Jay Alexander MD CHEMISTRY & BLOOD GAS ORDERABLES Final Result Performing Organization Address City/[facility]/ZIP Co de Phone Number [facility] [address] [place] [address] * HEPATIC FUNCTION PANEL (ALB,ALK PHOS,ALT,AST,DBIL,TOT LUIS,TOT PROT) (04/22/2022 21:03 EDT) Pathologist [facility] Total Protein 6.9 6.3 - 8.2 g/dL 04/22/2022 21:34 [facility] Albumin 4.0 3.4 - 4.9 g/dL 04/22/2022 21:34 [facility] Bilirubin, Total 0.6 <1.4 mg/dL 04/22/20 21:34 [facility] Conjugated Bilirubin 0.0 <=0.3 mg/dL 04/22/2022 21:34 [facility] Unconjugated Bilirubin 0.7 <=1.1 mg/dL 04/22/2022 21:34 [facility] Alkaline Phosphatase 99 38 - 126 U/L 04/22/2022 21:34 [facility] ALT 12 <35 U/L 04/22/2022 21:34 [facility] AST 25 15 - 46 U/L 04/22/2022 21:34 [facility] Calculated Total Bilirubin 0.7 <1.4 mg/dL 04/22/2022 21:34 [facility] Blood VENOUS BLOOD / Unknown Venipuncture / Unknown 04/22/2022 21:03 EDT 04/22/2022 21:11 EDT us Jay Jay Alexander MD CHEMISTRY & BLOOD GAS ORDERABLES Final Result [facility] [address] [place] [address] * TYPE AND SCREEN (04/22/2022 21:03 EDT) ABO O 04/22/2022 21:50 EDT [facility] Rh Factor Positive 04/22/2022 21:50 T [facility] Antibody Screen Negative 04/22/2022 21:50 [facility] Specimen Expires: 04/25/2022 @ 23:59 04/22/2022 21:50 [facility] Blood VENOUS BLOOD / Unknown Venipuncture / Unknown 04/22/2022 21:03 EDT 04/22/2022 21:19 EDT us Jay Jay Alexander MD BLOOD BANK TESTS Edited Result - Final Performing Organization Address [facility]/ZIP Co de Phone Number [facility] [address] [place] [address] * HOLD BLUE TOP (04/22/2022 21:03 EDT) Hold Hold 04/22/2022 22:15 EDT [facility] Blood VENOUS BLOOD / Unknown Venipuncture / Unknown 04/22/2022 21:03 EDT 04/22/2022 21:11 EDT us Jay Jay Alexander MD LAB INFO SERVICE AND SUPPORT & P JEFFREY RESULT Final Result Performing Organization Address [facility] Co de Phone Number [facility] [address] [place] [address] * (ABNORMAL) MAGNESIUM (04/22/2022 21:03 EDT) Pathologist [facility] Magnesium 1.6(L) 1.7 - 2.8 mg/dL 04/22/2022 21:34 EDT [facility] Blood VENOUS BLOOD / Unknown Venipuncture / Unknown 04/22/2022 21:03 EDT 04/22/2022 21:11 EDT us Jay Jay Alexander MD CHEMISTRY & BLOOD GAS ORDERABLES Final Result Performing Organization Address [facility] Co de Phone Number [facility] [address] [place] [address] * TROPONIN I (04/22/2022 21:03 EDT) Pathologist [facility] Troponin I (ng/mL) <0.034 <0.034 ng/mL 04/22/2022 21:48 EDT [facility] Blood VENOUS BLOOD / Unknown Venipuncture / Unknown 04/22/2022 21:03 EDT 04/22/2022 21:11 EDT Narrative [facility] - 04/22/2022 21:48 EDT The results of this assay can be falsely lowered due to the consumption of Biotin. us Jay Jay Alexander MD CHEMISTRY & BLOOD GAS ORDERABLES Final Result Performing Organization Address City/[facility]/ZIP Co de Phone Number [facility] [address] [place] [address] * (ABNORMAL) BASIC METABOLIC PANEL (BMP) (04/22/2022 21:03 EDT) Sodium 139 136 - 145 mmol/L 04/22/2022 21:34 [facility] Potassium 4.0 3.5 - 5.0 mmol/L 04/22/2022 21:34 [facility] Chloride 101 96 - 110 mmol/L 04/22/2022 21:34 [facility] CO2 Total 30 22 - 32 mmol/L 04/22/2022 21:34 [facility] Anion Gap 8 5 - 14 04/22/2022 21:34 [facility] Glucose 87 70 - 100 mg/dL 04/22/2022 21:34 [facility] Calcium 8.5 8.5 - 10.5 mg/dL 04/22/2022 21:34 [facility] BUN 19 10 - 26 mg/dL 04/22/2022 21:34 [facility] Creatinine 1.28(H) 0.52 - 1.04 mg/dL 04/22/2022 21:34 [facility] eGFR 48(L) >60 mL/min/1.73 m2 04/22/2022 21:34 [facility] Blood VENOUS BLOOD / Unknown Venipuncture / Unknown 04/22/2022 21:03 EDT 04/22/2022 21:11 EDT Jay Jay Alexander MD CHEMISTRY & BLOOD GAS ORDERABLES Final Result Performing Organization Address [facility]/ZIP Co de Phone Number [facility] [address] [place] [address] * (ABNORMAL) COMPLETE BLOOD COUNT AND DIFFERENTIAL (04/22/2022 21:03 EDT) WBC 3.64(L) 4.00 - 12.40 K/cmm 04/22/2022 21:29 [facility] RBC 3.76(L) 3.86 - 5.04 M/cmm 04/22/2022 21:29 [facility] Hemoglobin 10.9(L) 11.6 - 15.2 gm/dL 04/22/2022 21:29 [facility] HCT 33.9(L) 34.9 - 44.4 % 04/22/2022 21:29 [facility] MCV 90 81 - 98 fl 04/22/2022 21:29 [facility] MCH 29.0 26.7 - 33.3 pg 04/22/2022 21:29 [facility] MCHC 32.2 32.1 - 35.9 gm/dL 04/22/2022 21:29 [facility] RDW-CV 14.7(H) <14.7 % 04/22/2022 21:29 [facility] RDW-SD 48.6 <50.4 fl 04/22/2022 21:29 [facility] PLT 77(L) 141 - 377 K/cmm 04/22/2022 21:29 [facility] MPV 10.3 9.5 - 12.7 fl 04/22/2022 21:29 [facility] % Neutrophils 76.4 % 04/22/2022 21:29 [facility] % Lymphocytes 10.4 % 04/22/2022 21:29 [facility] % Monocytes 9.9 % 04/22/2022 21:29 [facility] % Eosinophils 2.2 % 04/22/2022 21:29 [facility] % Basophils 0.8 % 04/22/2022 21:29 [facility] % Immature Grans 0.3 % 04/22/20 21:29 [facility] Absolute Neutrophils 2.78 2.20 - 8.85 K/cmm 04/22/2022 21:29 EDT [facility] Absolute Lymphocytes 0.38(L) 1.09 - 3.30 K/cm 04/22/2022 21:29 [facility] Absolute Monocytes 0.36 0.10 - 0.80 K/cm 04/22/2022 21:29 T [facility] Absolute Eosinophils 0.08 0.03 - 0.61 K/count includes the [facility] 04/22/2022 21:29 [facility] ABS Basophils 0.03 0.01 - 0.11 K/cm 04/22/2022 21:29 [facility] Absolute Immature Grans 0.01 0.00 - 0.06 K/cm 04/22/2022 21:29 [facility] Type of Differential: Auto 04/22/2022 21:29 [facility] Blood VENOUS BLOOD / Unknown Venipuncture / Unknown 04/22/2022 21:03 EDT 04/22/2022 21:11 EDT us Jay Jay Alexander MD PACKAGES & DNA PROBE ORDERABLES Final Result Performing Organization Address [facility]/State/[facility] Co de Phone Number [facility] [address] [place] [address] * EKG 12-LEAD (04/22/2022 19:13 EDT) 04/22/2022 19:1 3 EDT Narrative [facility] EKG - 05/18/2022 10:15 EDT ?[facility] Emergency ? Test Date: ?2022-04-22 Pat Name: ? PHYLISS BOOTHE ?Department: ?? ED ? Room: ? Gender: ? Female ? Night Club Manager: ?? [id number] : ?1960 ? Requested By: CHANDU Victoria Order Number: [id number] ? Reading MD: ?? DENISSE KING MD ? Measurements Intervals ?[place] ? Rate: ? 92 ? P: ?58 NH: ? 145 ?QRS: ?56 QRSD: ? 102 ?T: ?7 QT: ? 372 ? QTc: ?461 ? Interpretive Statements SINUS RHYTHM Compared to ECG 02/10/2022 11:21:00 No significant changes I reviewed the tracing and have either agreed or edited the findings in this report. Electronically Signed On 05-18-2022 10:15:06 EDT by DENISSE MALIK MD. Procedure Note Denisse Malik MD - 05/18/2022 [facility] Emergency Test Date: 2022-04-22 Pat Name: TARA BOOTHE Department: ED Room: Gender: Female Night Club Manager: [id number] : 1960 Requested By: CHANDU Victoria Order Number: [id number] Reading MD: DENISSE COSME Measurements Intervals [place] Rate: 92 P: 58 NH: 145 QRS: 56 QRSD: 102 T: 7 QT: 372 QTc: 461 Interpretive Statements SINUS RHYTHM Compared to ECG 02/10/2022 11:21:00 No significant changes I reviewed the tracing and have either agreed or edited the findings inthis report. Electronically Signed On 05-18-2022 10:15:06 EDT by DANIEL PHIPPS. Bobby Mathur MD CARDIAC ECG ORDERABLES Final Result [facility] EKG documented in this encounter Visit Diagnoses Diagnosis Generalized abdominal pain- Primary Abdominal pain, generalized documented in this encounter Administered Medications Inactive Administered Medications - up to 3 most recent administrations Medication Order MAR Action Action Date Dose Rate Site HYDROmorphone (DILAUDID) tablet 2 mg 2 mg, oral, NOW X1, 1 dose, On Tue04/23/22 at 0430, STAT Given 04/23/2022 4:36 EDT 2 mg HYDROmorphone (PF) (DILAUDID) 0.5 mg/0.5 mL syringe 0.5 mg 0.5 mg, intravenous, NOW X1, 1 dose, On Kirsten 04/22/22 at 2345, STAT Given 04/22/2022 23:46 EDT 0.5 mg HYDROmorphone (PF) (DILAUDID) 0.5 mg/0.5 mL syringe 1 mg 1 mg, intravenous, NOW X1, 1 dose, On Kirsten 04/22/22 at 2130, STAT Given 04/22/2022 21:31 EDT 1 mg iohexoL (OMNIPAQUE 350) solution 100 mL 100 mL, intravenous, Once in imaging, 1 dose, Starting on Tue04/23/22 at 0152, Until Tue04/23/22 at 0216, Routine, Imaging Protocol Orders Given 04/23/2022 2:16 EDT 150 mL lactated ringers BOLUS 500 mL 500 mL, intravenous, NOW X1, 1 dose, On Tue04/22/22 at 2145, STAT New Bag 04/22/2022 21:53 EDT 500 mL magnesium sulfate 2 g in water 50 mL 2 g, intravenous, Administer over 60 Minutes, NOW X1, 1 dose, On Tue04/23/22 at 0015, STAT New Bag 04/23/2022 0:24 EDT 2 g ondansetron (PF) (ZOFRAN) injection 4 mg 4 mg, intravenous, NOW X1, 1 dose, On Tue04/22/22 at 2130, STAT Given 04/22/2022 21:31 EDT 4 mg ondansetron (ZOFRAN-ODT) disintegrating tablet 4 mg 4 mg, oral, NOW X1, 1 dose, On Tue04/23/22 at 0430, STAT Given 04/23/2022 4:36 EDT 4 mg documented in this encounter Active and Recently Administered Medications Times are shown in EDT. Scheduled Medication Order 04/21/2022 04/22/2022 04/23/2022 HYDROmorphone (DILAUDID) tablet 2 mg (COMPLETED) 2 mg, oral, NOW X1, 1 dose, On Tue04/23/22 at 0430, STAT 0436 (Given - Provid er: Segundo Moya RN) HYDROmorphone (PF) (DILAUDID) 0.5 mg/0.5 mL syringe 0.5 mg (COMPLETED) 0.5 mg, intravenous, NOW X1, 1 dose, On Kirsten 04/22/22 at 2345, STAT 2346 (Given - Provider: Segundo Moya RN) HYDROmorphone (PF) (DILAUDID) 0.5 mg/0.5 mL syringe 1 mg (COMPLETED) 1 mg, intravenous, NOW X1, 1 dose, On Kirsten 04/22/22 at 2130, STAT 2131 (Given - Provider: Segundo Moya RN) iohexoL (OMNIPAQUE 350) solution 100 mL (COMPLETED) 100 mL, intravenous, Once in imaging, 1 dose, Starting on Tue04/23/22 at 0152, Until Tue04/23/22 at 0216, Routine, Imaging Protocol Orders 0216 (Given - Provid er: Karol Zabala) lactated ringers BOLUS 500 mL (COMPLETED) 500 mL, intravenous, NOW X1, 1 dose, On Kirsten 04/22/22 at 2145, STAT 2153 (New Bag - Provider: Segundo Moya RN) 0024 (IV Stopped - Provider: Segundo Moya RN) magnesium sulfate 2 g in water 50 mL (COMPLETED) 2 g, intravenous, Administer over 60 Minutes, NOW X1, 1 dose, On Tue04/23/22 at 0015, STAT 0024 (New Bag - Provider: Segundo Moya RN)0132 (IV Stopped - Provider: Segundo Moya RN) ondansetron (PF) (ZOFRAN) injection 4 mg (COMPLETED) 4 mg, intravenous, NOW X1, 1 dose, On Kirsten 04/22/22 at 2130, STAT 2131 (Given - Provider: Segundo Moya RN) ondansetron (ZOFRAN-ODT) disintegrating tablet 4 mg (COMPLETED) 4 mg, oral, NOW X1, 1 dose, On Tue04/23/22 at 0430, STAT 0436 (Given - Provid er: Segundo Moya RN) documented in this encounter Care Teams Sign Fabricator Relationship Specialty Start Date End Date Emigdio Veronica MD [address] [place] [phone] PCP - General Internal Medicine - Primary Care 05/22/20 02/21/24 Starr Paige MD [facility] [address] [place], [place] [phone] Hematology 10/08/21 06/09/22 Dana Padilla MD [address] [facility], [address] [place] [phone] Hematology 01/13/22 06/09/22 documented as of this encounter
--- OUTSIDE RECORDS SUMMARY | 2024-11-22 17:05 | XMS_ITS | Encounter Summary ---
Author Organization [facility] Address [address] [place] [address] Care Team Providers Care Barrel Assembler Helper Name Role Phone Emigdio Veronica MD Primary Care Provider + Starr Paige MD Unavailable [phone] Dana Padilla MD Unavailable Reason for Visit * Reason Onset Date Comments Retail Operations Manager Message 04/26/2022 Encounter Details Date Type Department Care Team (Late st Contact Info) Description 04/26/2022 Telephone [facility] Primary Care [facility] [address] [address] Araceli Ness MD [address] [place] [phone] Retail Operations Manager Message Social History Tobacco Use Types Packs/Day Years [...] 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 Worsening SOB through the day. Reviewed chart. Hx of COPD, asthma, HUEY, QUIROZ cirrhosis, pancytopenia, and other medical problems. Given worsening SOB, advised ER eval. She has a roommate who can drive her. documented in this encounter Plan of Treatment Upcoming Encounters Date Type Department Care Team (Late st Contact Info) Description 01/04/2025 13:00 EST Office Visit [facility] Ophthalmology - [address] [phone] Gagandeep Rome MD [address] [place] [address], [facility] [address] [place] [phone] 02/11/2025 13:30 EDT Telemedicine [facility] Hematology & Oncology [address] [address] Dana Padilla MD [address] [place] [address], [facility] [address] [place] [phone] documented as of this encounter Visit Diagnoses Not on filedocumented in this encounter Care Teams Barrel Assembler Helper Relationship Specialty Start Date End Date Emigdio Veronica MD [address] [place] [phone] PCP - General Internal Medicine - Primary Care 05/22/20 02/21/24 Starr Paige MD [address] [place] [phone] Hematology 10/08/21 06/09/22 Dana Padilla MD [address] [facility], Level [address] [place] [address] Hematology 01/13/22 06/09/22 documented as of this encounter
--- OUTSIDE RECORDS SUMMARY | 2024-11-22 17:05 | XMS_ITS | Encounter Summary ---
Author Organization [facility] Address [address] [place] [address] Care Team Providers Care Academic Coach Name Role Phone Emigdio Veronica MD Primary Care Provider + Starr Paige MD Unavailable [phone] Dana Padilla MD Unavailable Encounter Details Date Type Department Care Team (Late st Contact Info) Description 03/31/2022 15:00 EDT Phlebotomy Only [facility] Laboratory Services - [address] [address] Tenant Coordinator, [facility] Portal vein thrombosis; Upper GI bleed; Thrombocytopenia ([facility]) ([facility]) Social History Tobacco Use Types Packs/Day [...] 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 Let's keep checking about every 6 weeks. Dana Padilla MD documented in this encounter Plan of Treatment Upcoming Encounters Date Type Department Care Team (Late st Contact Info) Description 01/04/2025 13:00 EST Office Visit [facility] Ophthalmology - [address] [phone] Gagandeep Rome MD [address] [place] [address], [facility] [address] [place] [phone] 02/11/2025 13:30 EDT Telemedicine [facility] Hematology & Oncology - [address] [phone] Dana Padilla MD [address] [place] [address] [address] [place] [phone] documented as of this encounter Procedures Procedure Name Priority Date/Time Associated Diagnosis Comments COMPLETE BLOOD COUNT AND DIFFERENTIAL Routine 03/31/2022 15:03 EDT Portal vein thrombosis Thrombocytopenia (HCC-CMS) (HCC) documented in this encounter Results * (ABNORMAL) COMPLETE BLOOD COUNT AND DIFFERENTIAL (03/31/2022 15:03 EDT) WBC 4.41 4.00 - 12.40 K/cmm 03/31/2022 16:44 EDT [facility] RBC 4.12 3.86 - 5.04 M/cmm 03/31/2022 16:44 EDT [facility] Hemoglobin 11.7 11.6 - 15.2 gm/dL 03/31/2022 16:44 [facility] HCT 36.1 34.9 - 44.4 % 03/31/2022 16:44 [facility] MCV 88 81 - 98 fl 03/31/2022 16:44 [facility] MCH 28.4 26.7 - 33.3 pg 03/31/2022 16:44 [facility] MCHC 32.4 32.1 - 35.9 gm/dL 03/31/2022 16:44 [facility] RDW-CV 15.0(H) <14.7 % 03/31/2022 16:44 [facility] RDW-SD 47.9 <50.4 fl 03/31/2022 16:44 [facility] PLT 105(L) 141 - 377 K/cmm 03/31/2022 16:44 [facility] MPV 10.4 9.5 - 12.7 fl 03/31/2022 16:44 [facility] % Neutrophils 78.7 % 03/31/2022 16:44 [facility] % Lymphocytes 8.6 % 03/31/2022 16:44 [facility] % Monocytes 11.3 % 03/31/2022 16:44 [facility] % Eosinophils 0.7 % 03/31/2022 16:44 [facility] % Basophils 0.5 % 03/31/2022 16:44 [facility] % Immature Grans 0.2 % 03/31/20 16:44 [facility] Absolute Neutrophils 3.47 2.20 - 8.85 K/cmm 03/31/2022 16:44 [facility] Absolute Lymphocytes 0.38(L) 1.09 - 3.30 K/cmm 03/31/2022 16:44 [facility] Absolute Monocytes 0.50 0.10 - 0.80 K/cmm 03/31/2022 16:44 [facility] Absolute Eosinophils 0.03 0.03 - 0.61 K/cmm 03/31/2022 16:44 EDT [facility] ABS Basophils 0.02 0.01 - 0.11 K/cm 03/31/2022 16:44 EDT [facility] Absolute Immature Grans 0.01 0.00 - 0.06 K/cm 03/31/2022 16:44 EDT [facility] Type of Differential: Auto 03/31/2022 16:44 EDT [facility] Blood VENOUS BLOOD / Unknown Venipuncture / Unknown 03/31/2022 15:03 EDT 03/31/2022 15:03 EDT us Dana Padilla MD PACKAGES & DNA PROBE ORDERABLES Final Result [facility] [address] [place] [address] documented in this encounter Visit Diagnoses Diagnosis Portal vein thrombosis Upper GI bleed Hemorrhage of gastrointestinal tract, unspecified Thrombocytopenia ([facility]) Thrombocytopenia, unspecified documented in this encounter Care Teams Academic Coach Relationship Specialty Start Date End Date Emigdio Veronica MD [address] [place] [phone] PCP - General Internal Medicine - Primary Care 05/22/20 02/21/24 Starr Paige MD [address] [place] [phone] Hematology 10/08/21 06/09/22 Dana Padilla MD [address] [facility] [address] [place] [phone] Hematology 01/13/22 06/09/22 documented as of this encounter
--- OUTSIDE RECORDS SUMMARY | 2024-11-22 17:05 | XMS_ITS | Encounter Summary ---
Author Organization [facility] Address [address] [place] [address] Care Team Providers Care Certified Adapted Physical Educator Name Role Phone Emigdio Veronica MD Primary Care Provider + Starr Paige MD Unavailable [phone] Dana Padilla MD Unavailable Reason for Visit * Reason Onset Date Comments Appointment Related 03/22/2022 COVID-19 03/22/2022 Encounter Details Date Type Department Care Team (Late st Contact Info) Description 03/22/2022 Telephone [facility] - [place] [address] [place] [address] Emigdio Veronica MD [address] [place] [address] Appointment Related; COVID-19 Social History Tobacco Use Types Packs/Day [...] 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 Changed GG visit to telemedicine at 2:30 to discuss primarily Paxlovid and COVID. Canceled visit with AO for Paxlovid. * Telephone Encounter - Emigdio Veronica MD - 03/22/2022 1513 EDT If her SOB worsens to the point where albuterol is providing insufficient relief I would have her present to the ED Her appointment with me should be converted to telemedicine. As far as I am aware the only indication for phone visits currently is for COVID-19 consultation so our visit would have to be primarily focused on her COVID-19 infection. But we could do the phone visit. I would make that appointment about discussing paxlovid. I would not arrange two phone visits for tomorrow. I would simply convert our original visit to a phone visit. * Telephone Encounter - Sharon Khanna NP - 03/22/2022 5783 EDT Patient is positive for COVID via home test. Symptoms started on Tuesday night. Patient tested positive for covid 19 on today Symptoms started on Tuesday What is the patient requesting? Paxlovid (not comfortable with monoclonal abs) Current Symptoms List: Fatigued, short of breath, mild cough. Screening for Vaccination Status: 1. Is patient vaccinated against COVID? yes 2. Have they received their third dose Yes 3. Is patient immunocompromised none 4. Risk factors: Obesity (BMI>30) and Lung disease 5. Reviewed medication list with patient and updated in Epic Yes Not currently taking iron. 6. Renal disease No GFR 80 , drawn on 02/15/22 7. Medication list and creatinine (for renal inpaired patients) faxed to pharmacy. Not yet 8. Patient Education provided. verbally reviewed with patient Patient scheduled with AO at 9:15am for a telemedicine (unable to do a zoom visit) to do Paxlovid review. Also scheduled with GG at 2:30 pm tomorrow for an in office visit. Unable to do a zoom visit. Wondering about rescheduling vs phone call. Uses [facility] - would want to use this Paxlovid ???We are obligated to tell you that Paxlovid is medicine that the FDA has given emergency use authorization to treat mild to moderate COVID-19 in patients 12 year of age and older (weighing at least40 kg) who are at high risk for severe COVID* including hospitalization. This medication is under an emergency use designation because it has not been studied extensively. Patients have generally tolerated it well with most side effects being GI in nature (diarrhea). As with any medicine, there is a chance for an allergic reaction. There are many medication interactions and your medications will be reviewed prior to this medicine being prescribed to you. If you meet the criteria to receive Paxlovid you will get a fact sheet from the pharmacy when the medication is picked up at the pharmacy. We encourage you to read the packet insert for more information on the medication. It is also recommended that you isolate for at least 5 days, stay hydrated, wear a mask if you haveto be around others inside or outside, clean frequently touched surfaces and wash your hands often. * Telephone Encounter - Ebony Toscano - 03/22/2022 1029 EDT Pt calling Gniny back. * Telephone Encounter - Sharon Khanna NP - 03/22/2022 1407 EDT Spoke with patient. Exposure on 03/17 was a friend who works at the hospital, he was symptomatic. Stopped by her house that day, gave her a hug and a kiss. Patient is SOB but also has COPD. Shortness of breath is new for her - has been feeling it since two nights ago - SOB was waking her off and on. SOB intermittently with exertion. Sometimes even SOB walking across the room. Does not have a pulse oximeter. Coughing a little but it's non productive. Using albuterol once today, overnight - usually 2-3x per day, more than she had been. Also taking symbicort daily. O2 2L at night. Very, very tired. No fever but having hot and cold chills. Has not yet done another COVID home test yet Scheduled for a regular check in with PCP tomorrow. No ability to do a video visit, can only do phone visits. Advised patient to take a home covid test and call back: - if positive will discuss Paxlovid - if negative with order PCR Patient verbalized understanding and agrees with plan. No barriers to learning identified. * Telephone Encounter - Karol Copeland - 03/22/2022 5303 EDT Reason for Call: Appointment Related and COVID-19 Summary/Symptoms: Pt has an appt tomorrow with Dr. Veronica. Pt reports they were exposed to a COVID positive person on 03/17/22. Pt did a home covid test on 03/18 that was negative, but was told that was too soon to test and should test again 5 days after exposure. Pt unsure if they are symptomatic. Does report feeling more fatigued and SOB. Pt not sure if they should come in to tomorrow's appt or not, pt unable to do televideo appt? Pt is able to telephone call if appropriate. Onset and Duration? Since 03/17/22 Appointment Offered? No Karol Copeland 03/22/2022 13:35 documented in this encounter Plan of Treatment Upcoming Encounters Date Type Department Care Team (Late st Contact Info) Description 01/04/2025 13:00 EST Office Visit [facility] Ophthalmology - [address] [phone] Gagandeep Rome MD [address] [place] [address], [facility] 5 [place] [phone] 02/11/2025 13:30 EDT Telemedicine [facility] Hematology & Oncology - [address] [phone] Dana Padilla MD [address] [place] [phone] documented as of this encounter Visit Diagnoses Not on filedocumented in this encounter Care Teams Certified Adapted Physical Educator Relationship Specialty Start Date End Date Emigdio Veronica MD [address] [place] [phone] PCP - General Internal Medicine - Primary Care 05/22/20 02/21/24 Starr Paige MD [address] [place] [phone] Hematology 10/08/21 06/09/22 Dana Padilla MD [address] [place] [phone] Hematology 01/13/22 06/09/22 documented as of this encounter
--- OUTSIDE RECORDS SUMMARY | 2024-11-22 17:05 | XMS_ITS | Encounter Summary ---
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 Not on [...] Office Visit [facility] Ophthalmology - [address] [phone] Gagandeep Rome MD [address] [place] [address] 5 [place] [phone] 02/11/2025 13:30 EDT Telemedicine [facility] Hematology & Oncology - [address] [address] Dana Padilla MD [address] [place] [phone] documented as of this encounter Visit Diagnoses Not on filedocumented in this encounter Care Teams Drafter (Cad) Electronic Relationship Specialty Start Date End Date Emigdio Veronica MD [address] [place] [phone] PCP - General Internal Medicine - Primary Care 05/22/20 02/21/24 Starr Paige MD [address] [place] [phone] Hematology 10/08/21 06/09/22 Dana Padilla MD [address] [place] [phone] Hematology 01/13/22 06/09/22 documented as of this encounter
--- OUTSIDE RECORDS SUMMARY | 2024-11-22 17:05 | XMS_ITS | Encounter Summary ---
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 Ophthalmology - [address] [phone] Gagandeep Rome MD [address] [place] [address] 5 [place] [address] 02/11/2025 13:30 EDT Telemedicine [facility] Hematology & Oncology - [address] [address] Dana Padilla MD [address] [place] [phone] documented as of this encounter Visit Diagnoses Not on filedocumented in this encounter Care Teams Lube Worker Relationship Specialty Start Date End Date Emigdio Veronica MD [address] [place] [phone] PCP - General Internal Medicine - Primary Care 05/22/20 02/21/24 Starr Paige MD [address] [place] [phone] Hematology 10/08/21 06/09/22 Dana Padilla MD [address] [place] [phone] Hematology 01/13/22 06/09/22 documented as of this encounter
--- OUTSIDE RECORDS SUMMARY | 2024-11-22 17:05 | XMS_ITS | Encounter Summary ---
Author Organization [facility] Address [address] [place] [address] Care Team Providers Care Chef Saucier Name Role Phone Emigdio Veronica MD Primary Care Provider + Starr Paige MD Unavailable Dana Padilla MD Unavailable Izabella Snowden [facility] Unavailable None, Provider Primary Care Provider UnavailGabriel Dacosta Primary Care Provider Mirna Guerrero Primary Care Provider + Reason for Visit * Reason Onset Date Comments Requesting Sooner Appointment 04/05/2022 Encounter Details Date Type Department Care Team (Late st Contact Info) Description 04/05/2022 Telephone [facility] Hematology & Oncology - [address] [place] [address] [address] Dana Padilla MD [address] [facility], Level 2 [place] [address] Requesting Sooner Appointment Social History Tobacco Use Types Packs/Day Years [...] 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 She now understands that she doesn't need to be seen until August. * Telephone Encounter - Orquidea Dubois - 04/05/2022 1338 EDT Patient requesting to be seen before 09/06/2022. Please call back. Thank you documented in this encounter Plan of Treatment Upcoming Encounters Date Type Department Care Team (Late st Contact Info) Description 01/04/2025 13:00 EST Office Visit [facility] Ophthalmology - [address] [place] [address] [address] Gagandeep Rome MD [address] [place] [address] 5 [place] [phone] 02/11/2025 13:30 EDT Telemedicine [facility] Hematology & Oncology [address] [phone] Dana Padilla MD [address] [place] [address], Level [address] [place] [phone] documented as of this encounter Visit Diagnoses Not on filedocumented in this encounter Additional Health Concerns Infection Onset Date Last Indicated Resolved Time R/O COVID-19 04/26/2022 04/26/2022 04/26/2022 23:4 5 EDT R/O COVID-19 Comment:Neg test 05/07/2022 05/07/2022 05/07/2022 15:57 EDT R/O COVID-19 06/09/2022 06/09/2022 06/09/2022 21:1 2 EDT R/O COVID-19 07/22/2022 07/22/2022 2022 22:1 5 EDT R/O COVID-19 12/14/2022 12/14/2022 12/14/2022 9:10 EST R/O COVID-19 02/23/2023 02/23/2023 02/23/2023 7:15 EDT R/O COVID-19 04/28/2023 04/28/2023 04/29/2023 0:02 EDT R/O COVID-19 09/07/2023 09/07/2023 09/07/2023 22:1 6 EDT documented as of this encounter Care Teams Chef Saucier Relationship Specialty Start Date End Date Emigdio Veronica MD [address] [place] [phone] PCP - General Internal Medicine - Primary Care 05/22/20 02/21/24 None, Provider PCP - General 02/24/24 03/18/24 Gabriel Gandara PA PCP - General 03/19/24 09/11/24 Mirna Guerrero PA [address] [place] [address] PCP - General 09/12/24 Starr Paige MD [address] [facility] [place] [address] Hematology 10/08/21 06/09/22 Dana Padilla MD 111 [facility], [address] [place] [phone] Hematology 01/13/22 06/09/22 Izabella Snowden, [facility] 1 [facility], 3rd [place] [address] Software Consultant 02/21/23 05/03/24 documented as of this encounter
--- OUTSIDE RECORDS SUMMARY | 2024-11-22 17:05 | XMS_ITS | Encounter Summary ---
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 5 [place] [address] 02/11/2025 13:30 EDT Telemedicine [facility] Hematology & Oncology - [address] [address] Dana Padilla MD [address] [place] [phone] documented as of this encounter Visit Diagnoses Not on filedocumented in this encounter Additional Health Concerns Infection Onset Date Last Indicated Resolved Time R/O COVID-19 04/26/2022 04/26/2022 04/26/2022 23:4 5 EDT documented as of this encounter Care Teams Residential Living Assistant Relationship Specialty Start Date End Date Emigdio Veronica MD [address] [place] [phone] PCP - General Internal Medicine - Primary Care 05/22/20 02/21/24 Starr Paige MD [address] [place] [phone] Hematology 10/08/21 06/09/22 Dana Padilla MD [address] [place] [phone] Hematology 01/13/22 06/09/22 documented as of this encounter
--- OUTSIDE RECORDS SUMMARY | 2024-11-22 17:05 | XMS_ITS | Encounter Summary ---
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 90 Tablet 1 04/23/2022 06/28/2022 documented in this encounter Miscellaneous Notes * Telephone Encounter - Ebony Toscano - 04/26/2022 1251 EDT Pt aware alternative has been Rx'd for her. She says the pharmacy is trying to get it in for her. * Telephone Encounter - Emigdio Veronica MD - 04/23/2022 1705 EDT tizanidine and baclofen are contraindicated. But we can try Chlorzoxazone as an alternative * Telephone Encounter - Ebony Toscano - 04/23/2022 1600 EDT Do you want to try for the PA or Rx an alternative? Prior Authorization required for: Methocarbamol See below for pt's insurance preferences: 1. Has the covered formulary alternative, cyclobenzaprine tablet 5mg or 10mg, been tried and failed, is likely to cause adverse reaction or be ineffective? Yes 2. Has the covered formulary alternative, baclofen tablet, been tried and failed, is likely to cause adverse reaction or be ineffective? 3. Has the covered formulary alternative, tizanidine tablet, been tried and failed, is likely to cause adverse reaction or be ineffective? 4. Has the covered formulary alternative, chlorzoxazone tablet 500mg, been tried and failed, is likely to cause adverse reaction or be ineffective? Diagnosis: ? Patient has tried and failed: Cyclobenzaprine Pharmacy: [facility] Insurance: [employer] Insurance phone/fax: option 3 ID# [id number] Form required? documented in this encounter Plan of Treatment Upcoming Encounters Date Type Department Care Team (Late st Contact Info) Description 01/04/2025 13:00 EST Office Visit [facility] Ophthalmology - [address] [phone] Gagandeep Rome MD [address] [place] [address] 5 [place] [phone] 02/11/2025 13:30 EDT Telemedicine [facility] Hematology & Oncology [address] [phone] Dana Padilla MD [address] [place] [address], [facility] 2 [place] [phone] documented as of this encounter Visit Diagnoses Not on filedocumented in this encounter Discontinued Medications Medication Sig Discontinue Reason Start Date End Da te methocarbamoL (ROBAXIN) 750 mg tablet Take 1 Tablet by mouth 3 times daily as needed for Muscle Spasms (abdominal pain). Alternate therapy 04/23/2022 04/23/2022 documented as of this encounter Care Teams Skate Boarder Relationship Specialty Start Date End Date Emigdio Veronica MD [address] [place] [phone] PCP - General Internal Medicine - Primary Care 05/22/20 02/21/24 Starr Paige MD [address] [place] [phone] Hematology 10/08/21 06/09/22 Dana Padilla MD [address] [place] [address] Level 2 [place] [phone] Hematology 01/13/22 06/09/22 documented as of this encounter
--- OUTSIDE RECORDS SUMMARY | 2024-11-22 17:05 | XMS_ITS | Encounter Summary ---
Author Organization [facility] Address [address] [place] [address] Care Team Providers Care Motivational Speaker Name Role Phone Emigdio Veronica MD Primary Care Provider + Starr Paige MD Unavailable Dana Padilla MD Unavailable Izabella Snowden [facility] Unavailable None, Provider Primary Care Provider UnavailGabriel Dacosta Primary Care Provider Mirna Guerrero Primary Care Provider + Reason for Visit * Reason Comments Other Encounter Details Date Type Department Care Team (Late st Contact Info) Description 03/30/2022 [facility] Adult Primary Care - [place] [address] [place] [address] Emigdio Veronica MD [address] [place] [phone] Other Social History Tobacco Use [...] Industry 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 pantoprazole (PROTONIX) 40 mg tablet [Pharmacy Med Name: PANTOPRAZOLE SOD DR 40 MG TAB] 60 Tablet 3 Sig: Take 1 Tablet by mouth 2 times daily. [id number] - [address] Confirmed Pharmacy? Yes Patient out of medication? Unknown Last Refill Date: 03/22/22 Refills left? (explain exceptions requiring early refill) Yes, 3 Recent Visits Date Type Provider Dept 02/17/22 Office Visit Emigdio Veronica MD [place] [facility] 02/10/22 Office Visit Darlene Rollins NP [facility] 01/27/22 Office Visit Osmany Matthews MD [place] [facility] 11/25/21 Office Visit Emigdio Veronica MD [facility] 11/11/21 Office Visit Scottie Campuzano PA-C [place] [facility] 10/20/21 Office Visit Emigdio Veronica MD [facility] 10/08/21 Office Visit Emigdio Veronica MD [place] [facility] 09/18/21 Office Visit Scottie Campuzano PA-C [facility] 07/22/21 Office Visit Scottie Campuzano PA-C [facility] 05/14/21 Office Visit Emigdio Veronica MD [facility] Showing recent visits within past 540 days with a meds authorizing provider and meeting all other requirements Future Appointments Date Type Provider Dept 04/23/22 Appointment Emigdio Veronica MD [place] [facility] 07/07/22 Appointment Emigdio Veronica MD [facility] Showing future appointments within next 150 days with a meds authorizing provider and meeting all other requirements Future appointment: Already Scheduled FATOUMATA FOWLER RN 03/31/2022 15:44 documented in this encounter Plan of Treatment Upcoming Encounters Date Type Department Care Team (Late st Contact Info) Description 01/04/2025 13:[address] [facility] Ophthalmology - [address] [phone] Gagandeep Rome MD [address] [place] [address] 5 [place] [phone] 02/11/2025 13:30 EDT Telemedicine [facility] Hematology & Oncology [address] [phone] Dana Padilla MD [address] [place] [address] 2 [place] [phone] documented as of [...] documented as of this encounter Care Teams Motivational Speaker Relationship Specialty Start Date End Date Emigdio Veronica MD 2 [place] [phone] PCP - General Internal Medicine - Primary Care 05/22/20 02/21/24 None, Provider PCP - General 02/24/24 03/18/24 Gabriel Gandara PA PCP - General 03/19/24 09/11/24 Mirna Guerrero PA [address] [place] [address] PCP - General 09/12/24 Starr Paige MD [address] [place], [place] [phone] Hematology 10/08/21 06/09/22 Dana Padilla MD [address] [facility], Level [address] [place] [phone] Hematology 01/13/22 06/09/22 Izabella Snowden, [facility] 1 [facility], 3rd [place] [address] Hobbing Machine Operator 4/3/23 6/13/24 documented as of this encounter
--- OUTSIDE RECORDS SUMMARY | 2024-11-22 17:05 | XMS_ITS | Encounter Summary ---
Author Organization [facility] Address [address] [place] [address] Care Team Providers Care Organ Pipe Maker Metal Name Role Phone Emigdio Veronica MD Primary Care Provider + Starr Paige MD Unavailable Dana Padilla MD Unavailable Izabella Snowden [facility] Unavailable None, Provider Primary Care Provider UnavailGabriel Dacosta Primary Care Provider [phone] Mirna Guerrero Primary Care Provider + Reason for Visit * Reason Comments Other Encounter Details Date Type Department Care Team (Late st Contact Info) Description 04/14/2022 [facility] - [place] [address] [place] [address] Emigdio Veronica MD [address] [place] [address] Other Social History Tobacco Use [...] 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 SYMBICORT 160-4.5 mcg/actuation HFA aerosol inhaler inhaler [Pharmacy Med Name: SYMBICORT 160-4.5 MCG INHALER] 10.2 Each 1 Sig: INHALE [address] [facility]/pharmacy #[id number] - [address] Confirmed Pharmacy? Yes Patient out of medication? Unknown Last Refill Date: 10/30/21 Refills left? (explain exceptions requiring early refill) No Recent Visits Date Type Provider Dept 02/17/22 Office Visit Emigdio Veronica MD [facility] 02/10/22 Office Visit Darlene Rollins NP [facility] 01/27/22 Office Visit Osmany Matthews MD [facility] 11/25/21 Office Visit Emigdio Veronica MD [facility] 11/11/21 Office Visit Scottie Campuzano PA-C [facility] 10/20/21 Office Visit Emigdio Veronica MD [facility] 10/08/21 Office Visit Emigdio Veronica MD [facility] 09/18/21 Office Visit Scottie Campuzano PA-C [facility] 07/22/21 Office Visit Scottie Campuzano PA-C [facility] [facility] 05/14/21 Office Visit Emigdio Veronica MD [facility] Showing recent visits within past 540 days with a meds authorizing provider and meeting all other requirements Future Appointments Date Type Provider Dept 04/23/22 Appointment Emigdio Veronica MD [facility] 07/07/22 Appointment Emigdio Veronica MD [facility] Showing future appointments within next 150 days with a meds authorizing provider and meeting all other requirements Future appointment: Already Scheduled FATOUMATA FOWLER RN 04/14/2022 11:16 documented in this encounter Plan of Treatment Upcoming Encounters Date Type Department Care Team (Late st Contact Info) Description 01/04/2025 13:00 EST Office Visit [facility] Ophthalmology - [address] [phone] Gagandeep Rome MD [address] [place] [address], [facility] 5 [place] [phone] 02/11/2025 13:30 EDT Telemedicine [facility] Hematology & Oncology [address] [phone] Dana Padilla MD [address] [place] [address], [facility] 2 [place] [address] documented as of this encounter Visit Diagnoses Diagnosis COPD with asthma ([facility]) Chronic obstructive asthma, unspecified documented in this encounter Discontinued Medications Medication Sig Discontinue Reason Start Date End Da te SYMBICORT 160-4.5 mcg/actuation HFA aerosol inhaler inhalerIndications:COPD with asthma ([facility]) INHALE 2 PUFFS DIRECTED DAILY. 11/09/2021 04/14/2022 documented as of this encounter Additional Health [...] documented as of this encounter Care Teams Organ Pipe Maker Metal Relationship Specialty Start Date End Date Emigdio Veronica MD [address] [place] [phone] PCP - General Internal Medicine - Primary Care 05/22/20 02/21/24 None, Provider PCP - General 02/24/24 03/18/24 Gabriel Gandara PA PCP - General 03/19/24 09/11/24 Mirna Guerrero PA [address] [place] [id number] PCP - General 09/12/24 Starr Paige MD [address] [facility] [address] Hematology 10/08/21 06/09/22 Dana Padilla MD [address] [facility], Level 2 [place] [address] Hematology 01/13/22 06/09/22 Izabella Snowden, [facility] 1 [facility], 3rd [place] [address] Spinning Frame Fixer 02/21/23 05/03/24 documented as of this encounter
--- OUTSIDE RECORDS SUMMARY | 2024-11-22 17:06 | XMS_ITS | Encounter Summary ---
Author Organization [facility] Address [address] [place] [address] Care Team Providers Care Steam Shovel Runner Name Role Phone Emigdio Veronica MD Primary Care Provider + Starr Paige MD Unavailable [phone] Dana Padilla MD Unavailable Reason for Visit * Reason Onset Date Comments Appointment Related 02/12/2022 Encounter Details Date Type Department Care Team (Late st Contact Info) Description 02/12/2022 Telephone [facility] Hematology & Oncology - [address] [address] Dana Padilla MD [address] [facility], [facility] 2 [place] [address] Appointment Related Social History Tobacco [...] 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 No / Unsure 01/13/2022 7:24 EST documented as of this encounter Functional [...] Notes * Telephone Encounter - MikiJuliet - 02/12/2022 1502 EDT Spoke to Tara and gave her d/t of follow up with Dr. Padilla. She acknowledged and wrote it downon her calendar. documented in this encounter Plan of Treatment Upcoming Encounters Date Type Department Care Team (Late st Contact Info) Description 01/04/2025 13:00 EST Office Visit [facility] Ophthalmology - [address] [phone] Gagandeep Rome MD [address] [place] [address] 5 [place] [phone] 02/11/2025 13:30 EDT Telemedicine [facility] Hematology & Oncology [address] [phone] Dana Padilla MD [address] [place] [address], [facility] 2 [place] [address] documented as of this encounter Visit Diagnoses Not on filedocumented in this encounter Care Teams Steam Shovel Runner Relationship Specialty Start Date End Date Emigdio Veronica MD 2 [place] [phone] PCP - General Internal Medicine - Primary Care 05/22/20 02/21/24 Starr Paige MD [address] [place] [phone] Hematology 10/08/21 06/09/22 Dana Padilla MD 111 [facility] 2 [place] [address] Hematology 01/13/22 06/09/22 documented as of this encounter
--- OUTSIDE RECORDS SUMMARY | 2024-11-22 17:06 | XMS_ITS | Encounter Summary ---
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 Daily Max: 15 mg 84 Tablet 02/17/2022 03/15/2022 documented in this encounter Miscellaneous Notes * Telephone Encounter - Xuan Jimenez - 02/12/2022 1447 EDT Patient returned call and does have enough medications until her appt Tuesday02/17/22 * Telephone Encounter - Karol Hoff RN - 02/12/2022 1202 EDT Chronic controlled medication yes Last med check visit 11/25/21 Future visit scheduled Yes 02/17/22 Vpms check No, not seen in opioid protocol, but in patient status may be interfering. Opioid prescription agreement Yes 05/01/21 Patient due for refill Yes on 02/17 the date prescription is pended for Is there a plan for tapering of medication noted in chart? no * Telephone Encounter - ChristianorosangelaEbony - 02/12/2022 0814 EDT Requested Prescriptions Pending Prescriptions Disp Refills ??? oxyCODONE (ROXICODONE) 5 mg immediate release tablet 84 Tablet 0 Sig: Take 1 Tablet by mouth 3 times daily as needed for up to 28 days for Pain. Daily Max: 15 mg [facility]/pharmacy #[id number] - [address] Confirmed Pharmacy? Yes Patient out of medication? No Pt is currently admitted at the [facility], was admitted on Tuesday, 02.10.22. She is hoping to go home today. Last Refill Date: 01.20.22 Refills left? (explain exceptions requiring early refill) No Recent Visits Date Type Provider Dept 02/10/22 Office Visit Darlene Rollins NP [facility] 01/27/22 Office Visit Osmany Matthews MD [facility] 11/25/21 Office Visit Emigdio Veronica MD [facility] 11/11/21 Office Visit Scottie Campuzano PA-C [facility] 10/20/21 Office Visit Emigdio Veronica MD [facility] 10/08/21 Office Visit Emigdio Veronica MD [facility] 09/18/21 Office Visit Scottie Campuzano PA-C [facility] 07/22/21 Office Visit Scottie Campuzano PA-C [facility] 05/14/21 Office Visit Emigdio Veronica MD [facility] 04/29/21 Office Visit Emigdio Veronica MD [facility] Showing recent visits within past 540 days with a meds authorizing provider and meeting all other requirements Future Appointments Date Type Provider Dept 02/17/22 Appointment Emigdio Veronica MD [facility] 07/07/22 Appointment Emigdio Veronica MD [facility] Showing future appointments within next 150 days with a meds authorizing provider and meeting all other requirements Future appointment: Already Scheduled Ebony Toscano 02/12/2022 8:15 documented in this encounter Plan of Treatment Upcoming Encounters Date Type Department Care Team (Late st Contact Info) Description 01/04/2025 13:00 EST Office Visit [facility] Ophthalmology - [address] [phone] Gagandeep Rome MD [address] [place] [address] 5 [place] [phone] 02/11/2025 13:30 EDT Telemedicine [facility] Hematology & Oncology - [address] [phone] Dana Padilla MD [address] [place] [address] 2 [place] [phone] documented as of this encounter Visit Diagnoses Not on filedocumented in this encounter Discontinued Medications Medication Sig Discontinue Reason Start Date End Da te oxyCODONE (ROXICODONE) 5 mg immediate release tablet Take 1 Tablet by mouth 3 times daily as needed for up to 28 days for Pain. Daily Max: 15 mg Reorder 01/20/2022 02/12/2022 documented as of this encounter Care Teams Cfa Relationship Specialty Start Date End Date Emigdio Veronica MD [address] [place] [phone] PCP - General Internal Medicine - Primary Care 05/22/20 02/21/24 Starr Paige MD [address] [place] [phone] Hematology 10/08/21 06/09/22 Dana Padilla MD [address] [place] [phone] Hematology 01/13/22 06/09/22 documented as of this encounter
--- OUTSIDE RECORDS SUMMARY | 2024-11-22 17:06 | XMS_ITS | Encounter Summary ---
Author Organization [facility] Address [address] [place] [address] Care Team Providers Care Special Librarian Name Role Phone Emigdio Veronica MD Primary Care Provider + Starr Paige MD Unavailable [phone] Dana Padilla MD Unavailable Reason for Visit * Reason Onset Date Comments Hospital Discharge Follow Up 02/12/2022 Encounter Details Date Type Department Care Team (Late st Contact Info) Description 02/12/2022 Telephone [facility] - [place] [address] [place] [address] Emigdio Veronica MD [address] [place] [phone] Hospital Discharge Follow Up Social [...] Industry 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 Pt thinks that she can get to the lab later today, if not tomorrow. The patientindicates understanding of these issues and agrees with the plan. * Telephone Encounter - Emigdio Veronica MD - 02/15/2022 1253 EDT Playing it on the safe side lets restart just the spirolactone at 50 mg daily and plan to obtain the repeat BMP prior to our visit. I agree with plan to continue to monitor weights * Telephone Encounter - Kuldeep Santa RN - 02/15/2022 1151 EDT Hospital Discharge Follow Up: Reason for admission: Portal vein thrombosis, LUQ abdominal pain, orthostatic hypotension. Symptoms improving? Yes- somewhat. She still feels really weak and gets out of breath quickly. She reports that she still has a lot of the LUQ abdominal pain but improved. She isn't sleeping much which has been an ongoing problem. She is aware that she will need a sleep study. She gets SOB easily with doing things like walking around her house but this is not worse than it has been. She has not checked her BP at home but knows it was low in the hospital. She feels slightly light headed with getting up but not bad. She does daily weights and has gained about 5 lbs since yesterday. Yesterday she was 234 lbs and today 239 point something. She is holding her spironolactone and lasix (also holding trazodone and apixaban as instructed). She states that her ankles do not have much fluid in them, maybe just a littlepuffy but states that they are nothing like in the past when she couldn't get her shoes on due to the fluid. Pt stopped taking her iron a couple weeks ago due to constipation. Pt has an office visit with PCP in 2 days and is planning on having the BMP checked before then although it may not be today. Discharge instructions available? yes Medications Reviewed/prescriptions filled? yes Support at home? yes Home health service/issues? no - Questions about discharge instructions? yes Follow-up visit scheduled? Yes, already scheduled for 02/17 with PCP. KULDEEP SANTA RN 02/15/2022 Dr. Natalio ROWLAND says IF you notice you are gaining weight by the time of follow-up (more than 3lbs in a day or 5lbs in 3-4 days, please restart your lasix at 20mg daily and spironolactone at 50mg daily). Ok for to restart these now? * Telephone Encounter - Kuldeep Santa RN - 02/15/2022 1005 EDT Phoned pt, no answer. Voice mailbox has not been set up yet so unable to leave a message for a callback to triage. No alternate phone numbers to try. Triage will try again later. KULDEEP SANTA RN 02/15/2022 10:06 * Telephone Encounter - Kuldeep Santa RN - 02/15/2022 0944 EDT Pt needs HFU call. Scores 25% and 96. * Telephone Encounter - Karol Hoff RN - 02/12/2022 1212 EDT Report received from Diana alcazar student. Patient in the process of being discharged now. It is suspected she was volume depleted from an increase in diuretic. Patient has been hemodynamically stable and was cleared by PT. They did find with her CT scan: New from prior exam, there is a small area of active arterial extravasation into the extensive portal venous thrombosis. The extent of portal venous thrombosis is unchanged. This small area of activeextravasation would be unlikely to account for the patient's hypotension Patient has follow up with Dr Miles 02/17 already. * Telephone Encounter - Ebony Toscano - 02/12/2022 1206 EDT Reason for Call: Hospital Discharge Follow Up Summary/Symptoms: Jw Bower from the [facility] is calling to give report for this pt that is being discharged today, 02.12.22 Onset and Duration: admitted on 02.10.22 Does the patient have a computer, laptop or smart phone with high speed & video capability? N/A If so, would they be interested in doing a video visit via Zoom? N/A Appointment Offered? No Ebony Toscano 02/12/2022 12:07 documented in this encounter Plan of Treatment Upcoming Encounters Date Type Department Care Team (Late st Contact Info) Description 01/04/2025 13:00 EST Office Visit [facility] Ophthalmology - [address] [phone] Gagandeep Rome MD [address] [place] [address], [address] [place] [phone] 02/11/2025 13:30 EDT Telemedicine [facility] Hematology & Oncology [address] [phone] Dana Padilla MD [address] [place] [phone] documented as of this encounter Visit Diagnoses Not on filedocumented in this encounter Care Teams Special Librarian Relationship Specialty Start Date End Date Emigdio Veronica MD [address] [place] [phone] PCP - General Internal Medicine - Primary Care 05/22/20 02/21/24 Starr Paige MD [facility] [address] [place] [phone] Hematology 10/08/21 06/09/22 aDna Padilla MD [address] [place] [phone] Hematology 01/13/22 06/09/22 documented as of this encounter
--- OUTSIDE RECORDS SUMMARY | 2024-11-22 17:06 | XMS_ITS | Encounter Summary ---
Author Organization [facility] Address [address] [place] [address] Care Team Providers Care Laborer Car Barn Name Role Phone Emigdio Veronica MD Primary Care Provider + Starr Paige MD Unavailable [phone] Dana Padilla MD Unavailable Reason for Visit * Reason Onset Date Comments Medications Refill 02/24/2022 Encounter Details Date Type Department Care Team (Late st Contact Info) Description 02/24/2022 Refill [facility] Adult Primary Care - [place] [address] [place] [address] Emigdio Veronica MD [address] [place] [phone] Medications Refill Social History Tobacco [...] 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 90 Tablet 1 02/24/2022 05/11/2022 documented in this encounter Miscellaneous Notes * Telephone Encounter - Karol Hoff RN - 02/24/2022 1158 EDT Updated patient about the recommendations from Dr Veronica below. The patient indicates understanding of these issues and agrees with the plan. No barriers. Patient short of furosemide, but doesn't recall taking more than prescribed and doesn't think she misplaced. She will pay out of pocket this month, pharmacy updated. * Telephone Encounter - Emigdio Veronica MD - 02/24/2022 1015 EDT I would stick to only 20 mg daily with her spirolactone. She should continue to monitor her weight and notify us of any other episodes of dizziness or weight gain * Telephone Encounter - Jes Mayorga RN - 02/24/2022 1006 EDT Patient restarted furosemide at 1 a day. Weight did go down 5 pounds since restarting the lasix last week. hasnt had any episodes of dizziness since in the office. Patient hasnt been checking blood pressure at home. * Telephone Encounter - Cris Copeland - 02/24/2022 0920 EDT Furosemide One/day [facility]/pharmacy #[id number] - [place], [place] - [address] [place] [address] Dr Confirmed Pharmacy? Yes Patient out of medication? Yes: Needs Refill Now Last Refill Date: 01.27.22, dc'd while inpatient, states Dr. Veronica restarted at 02.17.22 appt Refills left? (explain exceptions requiring early refill) No Recent Visits Date Type Provider Dept 02/17/22 Office Visit Emigdio Veronica MD [place] [facility] 02/10/22 Office Visit Darlene Rollins NP [facility] 01/27/22 Office Visit Osmany Matthews MD [facility] 11/25/21 Office Visit Emigdio Veronica MD [facility] 11/11/21 Office Visit Scottie Campuzano PA-C [facility] 10/20/21 Office Visit Emigdio Veronica MD [facility] 10/08/21 Office Visit Emigdio Veronica MD [facility] 09/18/21 Office Visit Scottie Campuzano PA-C [facility] 07/22/21 Office Visit Scottie Campuzano PA-C [facility] 05/14/21 Office Visit Emigdio Veronica MD [place] [facility] Showing recent visits within past 540 days with a meds authorizing provider and meeting all other requirements Future Appointments Date Type Provider Dept 03/23/22 Appointment Emigdio Veronica MD [facility] 07/07/22 Appointment Emigdio Veronica MD [place] [facility] Showing future appointments within next 150 days with a meds authorizing provider and meeting all other requirements Future appointment: Already Scheduled Cris Copeland 02/24/2022 9:20 documented in this encounter Plan of Treatment Upcoming Encounters Date Type Department Care Team (Late st Contact Info) Description 01/04/2025 13:00 EST Office Visit [facility] Ophthalmology - [facility] [address] [place], [place] [address] Gagandeep Rome MD [address] [place] [address], Level [address] [place] [phone] 02/11/2025 13:30 EDT Telemedicine [facility] Hematology & Oncology - [address] [phone] Dana Padilla MD [address] [place] [address] 2 [place] [phone] documented as of this encounter Visit Diagnoses Not on filedocumented in this encounter Care Teams Laborer Car Barn Relationship Specialty Start Date End Date Emigdio Veronica MD [address] [place] [phone] PCP - General Internal Medicine - Primary Care 05/22/20 02/21/24 Starr Paige MD [address] [place], [place] [phone] Hematology 10/08/21 06/09/22 Dana Padilla MD [address] [place] [phone] Hematology 01/13/22 06/09/22 documented as of this encounter
--- OUTSIDE RECORDS SUMMARY | 2024-11-22 17:06 | XMS_ITS | Encounter Summary ---
Author Organization [facility] Address [address] [place] [address] Care Team Providers Care Restaurant Attendant Name Role Phone Emigdio Veronica MD Primary Care Provider + Starr Paige MD Unavailable [phone] Dana Padilla MD Unavailable Reason for Visit * Reason Onset Date Comments Medications Refill 03/10/2022 Encounter Details Date Type Department Care Team (Late st Contact Info) Description 03/10/2022 Refill [facility] Adult Primary [facility] - [place] [address] [place] [address] Emigdio Veronica MD [address] [place] [address] Medications Refill Social History Tobacco [...] Industry 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 90 Tablet 1 03/10/2022 06/21/2022 documented in this encounter Miscellaneous Notes * Telephone Encounter - Ebony Toscano - 03/10/2022 1038 EDT Requested Prescriptions Pending Prescriptions Disp Refills ??? spironolactone (ALDACTONE) 50 mg tablet Sig: Take 1 Tablet by mouth daily. [facility]/pharmacy #[id number] - [place], [place] - [address] Confirmed Pharmacy? Yes Patient out of medication? Yes: Needs Refill Now Last Refill Date: Unsure - pt says the medication was stopped & then started again. Refills left? (explain exceptions requiring early refill) No Recent Visits Date Type Provider Dept 02/17/22 Office Visit Emigdio Veronica MD [place] [facility] 02/10/22 Office Visit Darlene Rollins NP [place] [facility] 01/27/22 Office Visit Osmany Matthews MD [place] [facility] 11/25/21 Office Visit Emigdio Veronica MD [place] [facility] 11/11/21 Office Visit Scottie Campuzano PA-C [place] [facility] 10/20/21 Office Visit Emigdio Veronica MD [place] [facility] 10/08/21 Office Visit Emigdio Veronica MD [place] [facility] 09/18/21 Office Visit Scottie Campuzano PA-C [place] [facility] 07/22/21 Office Visit Scottie Campuzano PA-C [place] [facility] 05/14/21 Office Visit Emigdio Veronica MD [place] [facility] Showing recent visits within past 540 days with a meds authorizing provider and meeting all other requirements Future Appointments Date Type Provider Dept 03/23/22 Appointment Emigdio Veronica MD [place] [facility] 07/07/22 Appointment Emigdio Veronica MD [place] [facility] Showing future appointments within next 150 days with a meds authorizing provider and meeting all other requirements Future appointment: Already Scheduled Ebony Toscano 03/10/2022 10:39 documented in this encounter Plan of Treatment Upcoming Encounters Date Type Department Care Team (Late st Contact Info) Description 01/04/2025 13:00 EST Office Visit [facility] Ophthalmology [address] [phone] Gagandeep Rome MD [address] [place] [address] 5 [place] [phone] 02/11/2025 13:30 EDT Telemedicine [facility] Hematology & Oncology [address] [phone] Dana Padilla MD [address] [place] [address] 2 [place] [phone] documented as of this encounter Visit Diagnoses Not on filedocumented in this encounter Discontinued Medications Medication Sig Discontinue Reason Start Date End Da te spironolactone (ALDACTONE) 50 mg tablet Take 50 mg by mouth daily. Reorder 03/10/2022 documented as of this encounter Care Teams Restaurant Attendant Relationship Specialty Start Date End Date Emigdio Veronica MD [address] [place] [phone] PCP - General Internal Medicine - Primary Care 05/22/20 02/21/24 Starr Paige MD [address] [place], [place] [phone] Hematology 10/08/21 06/09/22 Dana Padilla MD 111 [facility], [facility] 2 [place] [phone] Hematology 01/13/22 06/09/22 documented as of this encounter
--- OUTSIDE RECORDS SUMMARY | 2024-11-22 17:06 | XMS_ITS | Encounter Summary ---
Author Organization [facility] Address [address] [place] [address] Care Team Providers Care Glass Tube Bender Name Role Phone Emigdio Veronica MD Primary Care Provider + Starr Paige MD Unavailable [phone] Dana Padilla MD Unavailable Encounter Details Date Type Department Care Team (Late st Contact Info) Description 02/15/2022 14:45 EDT Phlebotomy Only [facility] - [address] [address] [place], [facility] Portal vein thrombosis; Upper GI bleed; Thrombocytopenia (HCC-CMS) (HCC); Other cirrhosis of liver (HCC) (HCC-CMS) Social History Tobacco Use Types Packs/Day [...] 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 Not [...] Visit [facility] Ophthalmology - [address] [phone] Gagandeep Rome MD [address] [place] [address] 5 [place] [phone] 02/11/2025 13:30 EDT Telemedicine [facility] Hematology & Oncology [address] [address] Dana Padilla MD [address] [place] [address] 2 [place] [address] documented as of this encounter Procedures Procedure Name Priority Date/Time Associated Diagnosis Comments COMPLETE BLOOD COUNT AND DIFFERENTIAL Routine 02/15/2022 14:52 EDT Portal vein thrombosis Thrombocytopenia (HCC-CMS) (HCC) BASIC METABOLIC PANEL (BMP) Routine 02/15/2022 14:52 EDT Other cirrhosis of liver (HCC) (HCC-CMS) documented in this encounter Results * (ABNORMAL) BASIC METABOLIC PANEL (BMP) (02/15/2022 14:52 EDT) Sodium 135(L) 136 - 145 mmol/L 02/15/2022 16:03 EDT [facility] Potassium 4.0 3.5 - 5.0 mmol/L 02/15/2022 16:03 EDT [facility] Chloride 106 96 - 110 mmol/L 02/15/2022 16:03 EDT [facility] CO2 Total 23 22 - 32 mmol/L 02/15/2022 16:03 [facility] Anion Gap 6 5 - 14 02/15/2022 16:03 [facility] Glucose 141(H) 70 - 100 mg/dL 02/15/2022 16:03 [facility] Calcium 8.2(L) 8.5 - 10.5 mg/dL 02/15/2022 16:03 [facility] BUN 16 10 - 26 mg/dL 02/15/2022 16:03 [facility] Creatinine 0.80 0.52 - 1.04 mg/dL 02/15/2022 16:03 [facility] eGFR 80 >60 mL/min/1.73 m2 02/15/2022 16:03 [facility] Blood VENOUS BLOOD / Unknown Venipuncture / Unknown 02/15/2022 14:52 EDT 02/15/2022 14:52 EDT us Suhail Gaspar MD CHEMISTRY & BLOOD GAS OR DERABLES Final Result [facility] [address] [place] [address] * (ABNORMAL) COMPLETE BLOOD COUNT AND DIFFERENTIAL (02/15/2022 14:52 EDT) WBC 3.30(L) 4.00 - 12.40 K/cmm 02/15/2022 15:35 [facility] RBC 3.58(L) 3.86 - 5.04 M/cmm 02/15/2022 15:35 [facility] Hemoglobin 10.1(L) 11.6 - 15.2 gm/dL 02/15/2022 15:35 [facility] HCT 30.8(L) 34.9 - 44.4 % 02/15/2022 15:35 [facility] MCV 86 81 - 98 fl 02/15/2022 15:35 [facility] MCH 28.2 26.7 - 33.3 pg 02/15/2022 15:35 [facility] MCHC 32.8 32.1 - 35.9 gm/dL 02/15/2022 15:35 [facility] RDW-CV 17.2(H) <14.7 % 02/15/2022 15:35 [facility] RDW-SD 54.4(H) <50.4 fl 02/15/2022 15:35 [facility] PLT 86(L) 141 - 377 K/cmm 02/15/2022 15:35 [facility] MPV 9.3(L) 9.5 - 12.7 fl 02/15/2022 15:35 [facility] % Neutrophils 74.6 % 02/15/2022 15:35 [facility] % Lymphocytes 9.1 % 02/15/2022 15:35 [facility] % Monocytes 12.4 % 02/15/2022 15:35 [facility] % Eosinophils 3.0 % 02/15/2022 15:35 [facility] % Basophils 0.6 % 02/15/2022 15:35 [facility] % Immature Grans 0.3 % 02/16/20 15:35 [facility] Absolute Neutrophils 2.46 2.20 - 8.85 K/cmm 02/15/2022 15:35 [facility] Absolute Lymphocytes 0.30(L) 1.09 - 3.30 K/cmm 02/15/2022 15:35 [facility] Absolute Monocytes 0.41 0.10 - 0.80 K/cmm 02/15/2022 15:35 [facility] Absolute Eosinophils 0.10 0.03 - 0.61 K/cmm 02/15/2022 15:35 [facility] ABS Basophils 0.02 0.01 - 0.11 K/cmm 02/15/2022 15:35 [facility] Absolute Immature Grans 0.01 0.00 - 0.06 K/cmm 02/15/2022 15:35 [facility] Type of Differential: Auto 02/15/2022 15:35 EDT [facility] Blood VENOUS BLOOD / Unknown Venipuncture / Unknown 02/15/2022 14:52 EDT 02/15/2022 14:52 EDT Dana Padilla MD PACKAGES & DNA PROBE ORDERABLES Final Result [facility] [address] [place] [address] documented in this encounter Visit Diagnoses Diagnosis Portal vein thrombosis Upper GI bleed Hemorrhage of gastrointestinal tract, unspecified Thrombocytopenia (HCC-CMS) Thrombocytopenia, unspecified Other cirrhosis of liver (HCC-CMS) documented in this encounter Care Teams Glass Tube Bender Relationship Specialty Start Date End Date Emigdio Veronica MD [address] [place] [phone] PCP - General Internal Medicine - Primary Care 05/22/20 02/21/24 Starr Paige MD [address] [place] [phone] Hematology 10/08/21 06/09/22 Dana Padilla MD [address] [facility] 2 [place] [phone] Hematology 01/13/22 06/09/22 documented as of this encounter
--- OUTSIDE RECORDS SUMMARY | 2024-11-22 17:06 | XMS_ITS | Encounter Summary ---
Author Organization [facility] Address [address] [place] [address] Care Team Providers Care Ground Crew Lines Person Name Role Phone Emigdio Veronica MD Primary Care Provider + Starr Paige MD Unavailable [phone] Dana Padilla MD Unavailable Reason for Referral * Sleep Study (Routine/Next Available) - Closed Specialty Diagnoses / Procedures Referred By Serene huitron Referred To Contact Sleep Medicine Diagnoses HUEY (obstructive sleep apnea) Procedures SPLIT NIGHT POLYSOMNOGRAM (DIAGNOSTIC POLYSOMNOGRAM WITH SPLIT TO CPAP/BIPAP TITRATION) Emigdio Veronica MD Phone: tel: fax: [facility] Sleep Program - [address] [address] Phone: tel: fax: Referral ID Status Reason Start Date Expiration Date Visits Re quested Visits Authorized [id number] Closed 02/25/2022 1 1 Reason for Visit * Reason Onset Date Comments Equipment 02/25/2022 Encounter Details Date Type Department Care Team (Late st Contact Info) Description 02/25/2022 Telephone [facility] Adult Primary Care - [place] [address] [place] [address] Emigdio Veronica MD [address] [place] [address] Equipment Social History Tobacco Use Types Packs/Day Years [...] 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 Answer Date of Assessment Author No 02/10/2022 18:24 EDT Otilio Dawson RN * Are you blind or do you have serious difficulty seeing, even when wearing glasses? Answer Date of Assessment Author No 02/10/2022 18:24 EDT Otilio Dawson RN * Do you have serious difficulty walking or climbing stairs? (5 years old or older) Answer Date of Assessment Author No 02/10/2022 18:24 EDT Otilio Dawson RN * Do you have difficulty dressing [...] Answer Entry Date Author No 02/10/2022 18:24 EDOtilio Leigh RN documented in this encounter Miscellaneous Notes * Telephone Encounter - Jes Mayorga RN - 02/25/2022 1356 EDT Patient made aware of sleep study ordered. Patient states she has a sleep study consult scheduled for March 31. * Telephone Encounter - Emigdio Veronica MD - 02/25/2022 1108 EDT Ordered * Telephone Encounter - Ebony Toscano - 02/25/2022 0904 EDT Nguyen from [facility] called to report that the sleep study that was done for this pt last yearhas for Medicare purposes for documentation for a CPAP machine for this pt. The pt did a sleep study in November 2020 but did not get a machine at that point. Because it has been over a year since she had the sleep study to 02.19.22 when the order for the CPAP was done she will need a new sleep study per Medicare guidelines. If ok please order a new sleep study for the pt. She is not aware yet that she will need to have it done again. documented in this encounter Plan of Treatment Upcoming Encounters Date Type Department Care Team (Late st Contact Info) Description 01/04/2025 13:00 EST Office Visit [facility] Ophthalmology - [address] [phone] Gagandeep Rome MD [address] [place] [address] 5 [place] [phone] 02/11/2025 13:30 EDT Telemedicine [facility] Hematology & Oncology - [address] [phone] Dana Padilla MD 111 [facility] 2 [place] [phone] Scheduled Orders Name Type Priority Associated Diagnoses Orde r Schedule SPLIT NIGHT POLYSOMNOGRAM (DIAGNOSTIC POLYSOMNOGRAM WITH SPLIT TO CPAP/BIPAP TITRATION) Sleep Center Routine HUEY (obstructive sleep apnea) Ordered: 02/25/2022 documented as of this encounter Visit Diagnoses Diagnosis HUEY (obstructive sleep apnea)- Primary Obstructive sleep apnea (adult) (pediatric) documented in this encounter Care Teams Ground Crew Lines Person Relationship Specialty Start Date End Date Emigdio Veronica MD [address] [place] [phone] PCP - General Internal Medicine - Primary Care 05/22/20 02/21/24 Starr Paige MD [facility] [address] [place] [phone] Hematology 10/08/21 06/09/22 Dana Padilla MD 111 [facility] 2 [place] [address] Hematology 01/13/22 06/09/22 documented as of this encounter
--- OUTSIDE RECORDS SUMMARY | 2024-11-22 17:06 | XMS_ITS | Encounter Summary ---
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 The patient indicates understanding of these issues and agrees with the plan. No barriers. Patient agreeable to Flomax, which she has taken before. * Telephone Encounter - Emigdio Veronica MD - 02/17/2022 1649 EDT Her U/A is most concerning for a repeat instance of kidney stones / nephrolithiasis. She should definitely hydrate. Given her edema I would try to meet, but not exceed 2 L of free water intake daily. In addition we can prescribe flomax to assist in passage of the stone. I have pended. I would not repeat a CT scan of her abdomen at this time. She has had several recently and non havepicked up a large stone. I suspect that her stone is small in size and likely will pass on it's own. If the pain persists for several weeks we can consider a renal ultrasound, but for now I would recommend hydration and flomax to assist in passage. * Telephone Encounter - Paige Gilman RN - 02/17/2022 1517 EDT UA from today abnormal level shows +3 blood. No other abnormal levels. Will send to provider for review/recommendations regarding patient concerns. PAIGE GILMAN RN 02/17/2022 15:18 * Telephone Encounter - Xuan Jimenez - 02/17/2022 1513 EDT Patient calling and would like to discuss the Urine Test results from today. She can see them on MyChart but would like to know what the next steps are. documented in this encounter Plan of Treatment Upcoming Encounters Date Type Department Care Team (Late st Contact Info) Description 01/04/2025 13:00 EST Office Visit [facility] Ophthalmology - [address] [phone] Gagandeep Rome MD [address] [place] [address] 5 [place] [phone] 02/11/2025 13:30 EDT Telemedicine [facility] Hematology & Oncology [address] [phone] Dana Padilla MD [address] [place] [phone] documented as of this encounter Visit Diagnoses Not on filedocumented in this encounter Care Teams Quill Buncher And Sorter Relationship Specialty Start Date End Date Emigdio Veronica MD [address] [place] [phone] PCP - General Internal Medicine - Primary Care 05/22/20 02/21/24 Starr Paige MD [address] [place] [phone] Hematology 10/08/21 06/09/22 Dana Padilla MD [address] [place] [phone] Hematology 01/13/22 06/09/22 documented as of this encounter
--- OUTSIDE RECORDS SUMMARY | 2024-11-22 17:06 | XMS_ITS | Encounter Summary ---
Author Organization [facility] Address [address] [place] [address] Care Team Providers Care Aircraft Maintenance Engineer Name Role Phone Emigdio Veronica MD Primary Care Provider + Starr Paige MD Unavailable [phone] Dana Padilla MD Unavailable Reason for Visit * Reason Onset Date Comments Results 02/15/2022 Encounter Details Date Type Department Care Team (Late st Contact Info) Description 02/15/2022 Telephone [facility] Hematology & Oncology - [address] [address] Dana Padilla MD [address] [place] [address], [facility] 2 [place] [phone] Results Social History Tobacco Use [...] 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 Please call to advise. documented in this encounter Plan of Treatment Upcoming Encounters Date Type Department Care Team (Late st Contact Info) Description 01/04/2025 13:00 EST Office Visit [facility] Ophthalmology - [address] [address] Gagandeep Rome MD [address] [place] [address], [facility] 5 [place] [phone] 02/11/2025 13:30 EDT Telemedicine [facility] Hematology & Oncology [address] [phone] Dana Padilla MD [address] [place] [address], [facility] 2 [place] [phone] documented as of this encounter Visit Diagnoses Not on filedocumented in this encounter Care Teams Aircraft Maintenance Engineer Relationship Specialty Start Date End Date Emigdio Veronica MD [address] [place] [phone] PCP - General Internal Medicine - Primary Care 05/22/20 02/21/24 Starr Paige MD [address] [facility] [place] [address] Hematology 10/08/21 06/09/22 Dana Padilla MD [address] [place] [address] Level [address] [place] [phone] Hematology 01/13/22 06/09/22 documented as of this encounter
--- OUTSIDE RECORDS SUMMARY | 2024-11-22 17:06 | XMS_ITS | Encounter Summary ---
Author Organization [facility] Address [address] [place] [address] Care Team Providers Care Master Scheduler Name Role Phone Emigdio Veronica MD Primary Care Provider + Starr Paige MD Unavailable [phone] Dana Padilla MD Unavailable Reason for Referral * Vascular Lab (Routine/Next Available) - Authorization Not Required Specialty Diagnoses / Procedures Referred By Serene huitron Referred To Contact Diagnoses Hypercoagulable state (HCC-CMS) Bilateral leg edema Procedures US LOWER VENOUS DUPLEX Dana Padilla MD Phone: tel: fax: Referral ID Status Reason Start Date Expiration Date Visits Requested Visits Authorized [id number] Authorization Not Required 02/22/2022 1 1 Reason for Visit * Reason Comments Follow-up * Consult (See Order Priority) - Order Cancelled Specialty Diagnoses / Procedures Referred By Serene huitron Referred To Contact Hematology and Oncology Diagnoses Arterial hemorrhage Other cirrhosis of liver (HCC-CMS) 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HCC-CMS) Suhail Gaspar MD Cushman, Mary, MD Phone: tel: fax: Referral ID Status Reason Start Date Expiration Date Visits Requested Visits Authorized [id number] Order Cancelled Specialty Services Required 02/12/2022 1 1 Encounter Details Date Type Department Care Team (Late st Contact Info) Description 02/22/2022 14:00 EDT Office Visit [email or web address] Hematology & Oncology - [facility] [address], [place] [id number] Dana Padilla MD [address] [facility], [facility], [address] [place] [address] Hypercoagulable state (HCC-CMS) (HCC) (HCC-CMS) (Primary Dx); Bilateral leg edema Social History Tobacco Use Types Packs/Day [...] 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 Not on file Not on file Not o n file documented as of this encounter Last Filed Vital Signs Vital Sign Reading Time Taken Comments Blood Pressure 101/55 02/22/2022 1350 EDT Pulse 75 02/22/2022 1350 EDT Temperature 35.9 ??C (96.6 ??F) 02/22/2022 1350 EDT Respiratory Rate 24 02/22/2022 1350 EDT Oxygen Saturation 97% 02/22/2022 1350 EDT Inhaled Oxygen Concentration - - Weight 107.3 kg (236 lb 9.6 oz) 02/22/2022 1350 EDT Height - - Body Mass Index 40.59 02/10/2022 1824 EDT documented in this encounter [...] Otilio Romero RN documented in this encounter Patient Instructions * Patient Instructions* Dana Padilla MD - 02/22/2022 14:00 EDT -we will get a leg ultrasound this week -stay off your apixaban -get labs once a month to watch your platelet count documented in this encounter Progress Notes * Dana Padilla MD - 02/22/2022 1400 EDT Thrombosis & Hemostasis Program (THP) Follow Up Visit Date of Service: 02/22/2022 CC: Follow-up Assessment: Portal vein thrombosis as outlined below with cirrhosis and associated hypercoagulability. She doesnot have basal INR elevation suggesting procoagulant factor deficiencies - her PT and PTT were normal in the last admission. At this time I think the safest approach is to keep her off anticoagulation given the bleeding issues she has had, although i'm not sure of the significance of the bleeding into her thrombus of the portal vein most recently. The pt is also very anxious about being on anticoagulation. Thrombocytopenia treated in the past with partial emoblization of the spleen and this is growing back as her platelet count has drifted down. If she does not bleed, then no other treatment is needed for the thrombocytopenia other than trying to minimize her liver function decline, even if her platelet count declines more significantly. She asked about splenectomy and I would not recommend this. Leg edema with warmth bilaterally - likely all due to liver disease but since she just stopped anticoagulation, should rule out deep vein thrombosis. My suspicion is low though since this is really not new. Plan: -continue off apixaban -bilateral LE ultrasound to be sure no deep vein thrombosis. -monthly CBC -I think she needs follow up with Dr. Moseley. Via this note I am asking him when he wants to see her. -diuretic management with her PCP. -I answered all her questions and explained the rational of each plan here and my assessment. -return in 6 months Please contact my office with questions/concerns. Problem List: Patient Active Problem List Diagnosis ??? Peptic ulcer disease with hemorrhage EGD March 2021:esophagitis and pyloric channel ulcer. Oct 08, 2021: 9-day admission w/ 3 separate EGDs and several units RBC tx. Large posterior duodenalulcer and pyloric ulcer extending into duodenal bulb +mild portal gastropathy as likely sources. RxBID Protonix for 3 months then daily. -01-13-22: EGD NORMAL ([facility]) ??? Portal vein thrombosis -04/23/21: Nonocclusive portal vein thrombosis (abd pain), chronic and increased; Lovenox 40 mg SC daily - stopped 05-28 due to thrombocytopenia, frequent falls aind intermittent [...] during this admission neg for DVT. ??? Other cirrhosis of liver (HCC) -NAFLD related cirrhosis with history of decompensation, chronic portal htn, hepatic encephalopathy, small esophageal varices on EGD in 2019, thrombocytopenia/hypersplenism, portal gastropathy -s/p partial splenic embolization (09/28/21) -portal vein thrombosis -Hep C Past provider: Dr. Ijeoma Smith, GI Department in [facility] for long-standing decompensated liver cirrhosis ??? LUQ abdominal pain ??? Abdominal pain ??? Thrombocytopenia (HCC-CMS) (HCC) Took lusutrombopag 3 mg once daily [...] ??? Chronic pain syndrome Intolerant of Lyrica, gabapentin, Robaxin. Previously on oxycodone, now on Dilaudid with history of renal insufficiency. Reportedly unable to take acetaminophen due to thrombocytopenia history. Unable to take any forms of NSAID due to renal insufficiency history. ??? Splenic vein thrombosis ??? Drug-seeking behavior Per Dr Amelia Tijerina and notes from [facility] patient misconstrued information to several providers about multiple concurrent opiate prescription. -IR embolization 09/28/21 for thrombocytopenia. Counts raised from 30s to 200K ??? Abdominal wall hernia ??? Allergic rhinitis ??? Pancytopenia (HCC) -bone marrow biopsy at [facility] in 2013: maturing trilineage hematopoiesis with no underlying hematopoietic abnormalities ??? Mild persistent asthma without complication ??? Nephrolithiasis Added automatically from request for surgery [id number] HPI: Ms Yun comes for follow up after being hospitalized again with abd pain. From the hematologic perspective, her anticoagulation was stopped due to bleeding into her portal vein thrombus. She has hadrecurrent thrombocytopenia and bleeding related to cirrhosis. She had a ~2g drop in hemoglobin after hydration for dehydration and no gross bleeding was identified. Her hgb was stable last week. She is very concerned about her thrombocytopenia, which is mild at this time in the 80s. She is having a lot of trouble with sleeping and was told she might have narcolepsy. She has chronic leg edema that is really bothering her. She elevates them to no avail and they are warm also (thatis new but the swelling is not). Her weight today is up 10 pounds and I believe her PCP is managingdiuretics Social History: Patient reports that she has been smoking cigarettes. She has a 8.75 pack-year smoking history. Shehas never used smokeless tobacco. She reports previous drug use. Drug: Marijuana. She reports that she does not drink alcohol. Social History Social History Narrative Rents a room from friends in [place] and lives there with her dog. She is disabled. 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 albuterol 90 mcg/actuation inhaler ??? amitriptyline (ELAVIL) 25 mg tablet ??? ferrous sulfate 324 mg (65 mg iron) tablet,delayed release (DR/EC) ??? levothyroxine (SYNTHROID) 25 mcg tablet ??? mupirocin (BACTROBAN) 2 % ointment ??? naloxone (NARCAN) 4 mg/actuation nasal spray ??? ondansetron (ZOFRAN-ODT) 4 mg disintegrating tablet ??? oxyCODONE (ROXICODONE) 5 mg immediate release tablet ??? OXYGEN-AIR DELIVERY SYSTEMS MISC ??? pantoprazole (PROTONIX) 40 mg tablet ??? sertraline (ZOLOFT) 100 mg tablet ??? spironolactone (ALDACTONE) 50 mg tablet ??? sucralfate (CARAFATE) 1 gram tablet ??? SYMBICORT 160-4.5 mcg/actuation HFA aerosol inhaler inhaler No current facility-administered medications for this visit. Facility-Administered Medications Ordered in Other Visits Medication Route Frequency ??? albuterol (ACCUNEB) 2.5 mg /3 mL (0.083 %) nebulizer solution Allergies: Patient is allergic to metoclopramide, morphine, sulfa (sulfonamide antibiotics), tylenol [acetaminophen], flagyl [metronidazole], aspirin, injectafer [ferric carboxymaltose], lyrica [pregabalin], prochlorperazine, and reglan [metoclopramide hcl]. Physical Exam: Vitals: 02/22/22 1350 BP: 101/55 Pulse: 75 Resp: 24 Temp: 35.9 ??C (96.6 ??F) TempSrc: Temporal SpO2: 97% Weight: (!) 107.3 kg (236 lb 9.6 oz) Estimated body mass index is 40.59 kg/m?? as calculated from the following: Height as of 02/10/22: 162.6 cm (64.02). Weight as of this encounter: 107.3 kg (236 lb 9.6 oz). Wt Readings from Last 3 Encounters: 02/22/22 (!) 107.3 kg (236 lb 9.6 oz) 02/17/22 (!) 108.9 kg (240 lb) 02/10/22 (!) 102.5 kg (226 lb) BMI Readings from Last 3 Encounters: 02/22/22 40.59 kg/m?? 02/17/22 41.18 kg/m?? 02/10/22 38.77 kg/m?? Gen: Alert and oriented x3. No distress. Ext: Right: 2+ lower extremity edema with diffuse warmth, no erythema, hemosiderin deposits, petechiae, varicose veins. Left: 2+ lower extremity edema with diffuse warmth, no hemosiderin deposits, petechiae, varicose veins. Labs: Complete Blood Count Lab Results Component Value Date WBC 3.30 (L) 02/15/2022 WBC 3.83 (L) 02/12/2022 WBC 3.37 (L) 02/11/2022 RBC 3.58 (L) 02/15/2022 HGB 10.1 (L) 02/15/2022 HGB 10.7 (L) 02/12/2022 HGB 10.4 (L) 02/11/2022 HCT 30.8 (L) 02/15/2022 MCV 86 02/15/2022 PLT 86 (L) 02/15/2022 PLT 94 (L) 02/12/2022 PLT 85 (L) 02/11/2022 MPV 9.3 (L) 02/15/2022 RDWCV 17.2 (H) 02/15/2022 Lab Results Component Value Date DIFFTYPE Auto 02/15/2022 NEUTROABS 2.46 02/15/2022 ABSBAND 0.02 04/23/2019 LYMPHSABS 0.30 (L) 02/15/2022 MONOSABS 0.41 02/15/2022 EOSABS 0.10 02/15/2022 BASOSABS 0.02 08/29/2019 MYELOABS 0.02 10/21/2018 Anemia Workup (if applicable) Lab Results Component Value Date IRON 92 02/11/2022 TIBC 428 02/11/2022 FERRITIN 49 02/11/2022 FOLATE 7.5 02/11/2022 [id number] 02/11/2022 Chemistries Lab Results Component Value Date NA 135 (L) 02/15/2022 K 4.0 02/15/2022 CL 106 02/15/2022 CO2 23 02/15/2022 BUN 16 02/15/2022 CREATININE 0.80 02/15/2022 CALCGFR 80 02/15/2022 CALCIUM 8.2 (L) 02/15/2022 CALCCA 9.2 07/28/2021 MG 1.9 02/10/2022 LDH 320 06/28/2019 ALKPHOS 120 02/12/2022 AST 22 02/12/2022 ALT 12 02/12/2022 GGT 47 (H) 11/09/2018 CONJBILI 0.0 07/14/2021 UNCONJBILI 0.5 07/14/2021 BILIRUBIN Neg 09/20/2017 TBIL 0.5 02/12/2022 TP 6.3 02/12/2022 LABALBU 3.4 02/12/2022 AGRATIO 1.2 02/12/2022 LIPASE 101 02/10/2022 Cardiovascular No results found for: SCRP No results found for: CHOL, LDLBASE, CHOLHDL, HDL, HDLC, LPA, LIPOA, TRIG Lab Results Component Value Date TROPONINI <0.034 02/10/2022 Thrombosis Panel Lab Results Component Value Date ABO O 02/10/2022 PROTIME 12.6 02/12/2022 INR 1.1 02/12/2022 INR 1.1 02/11/2022 PTT 32 02/12/2022 DDIMER 1,538 (H) 02/12/2022 DDIMER 1,994 (H) [...] thrombosis in the left lower extremity. CT ANGIO ABDOMEN PELVIS Narrative CT Angiogram of the Abdomen and Pelvis CLINICAL HISTORY: Syncope, hypotension, prior splenic artery embolization TECHNIQUE: Helical computed tomography was performed through the abdomen and pelvis before and after the uneventful intravenous administration of 100 mL of Omnipaque, including arterial and venous phase imaging. Oral contrast was not administered. Multiplanar reformatted images were generated from the source data. Maximum intensity projection and volume rendered 3-D reconstructions were also provided for review. Total DLP is 40-68.8 mGy*cm. COMPARISON: CT angiogram abdomen and pelvis 11/03/2021 FINDINGS: VASCULAR STRUCTURES: The abdominal aorta is normal in course and caliber. The major mesenteric vessels in the abdomen, including the celiac axis, superior mesenteric artery,inferior mesenteric artery, and their respective branches, are patent. There is a small area of active arterial extravasation into the portal vein thrombosis which is new from prior (series 507 [id number]). 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 Embolization coils from prior partial splenic artery embolization are again seen. 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 All renal arteries are patent. The right common, internal, and external iliac arteries are patent. The right common femoral arteryis patent. The partially imaged right superficial femoral and profunda femoris arteries are patent. The left common, internal, and external iliac arteries are patent. The left common femoral artery is patent. The partially imaged left superficial femoral and profunda femoris arteries are patent. Extensive portal venous thrombosis is not significantly changed compared to prior, apart from the aforementioned active extravasation. There is dilation of the portal veins, and there are multiple splenic gastric varices. INFERIOR THORAX/LUNG BASES: The lung bases are clear. There is no pleural effusion. The heart is globally normal in size. There is no pericardial effusion. LIVER: The liver is normal in size and attenuation. The liver contour is nodular. No hepatic mass identified on arterial or venous phase imaging. GALLBLADDER AND BILIARY SYSTEM: Status post cholecystectomy. There is no intrahepatic or extrahepatic biliary ductal dilatation. PANCREAS: Unremarkable. Normal caliber main pancreatic duct. SPLEEN: Redemonstrated partial splenic infarction status post embolization, with interval hypertrophy of the viable portion of the spleen. Overall splenic size has decreased in the interim, [id number] cm craniocaudal, previously 20 cm craniocaudal. ADRENAL GLANDS: Unremarkable. GENITOURINARY: The kidneys enhance normally. There is no hydroureteronephrosis. The bladder is grossly within normal limits. Status post hysterectomy. GASTROINTESTINAL: Status post appendectomy. There is sigmoid diverticulosis without associated inflammation. No obstruction. GENERAL: There is no free intraperitoneal air or fluid. LYMPH NODES: No enlarged lymph nodes identified within the abdomen or pelvis. OSSEOUS STRUCTURES: No aggressive osseous lesions identified. Degenerative changes are present in the hips and at multiple levels in the spine. SOFT TISSUES: Prior ventral hernia repair in the right upper abdomen. No bowel- containing hernia. Impression 1. New from prior exam, there is a small area of active arterial extravasation into the extensive portal venous thrombosis. The extent of portal venous thrombosis is unchanged. This small area of active extravasation would be unlikely to account for the patient's hypotension. 2. 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 3. Prior partial splenic artery embolization with expected partial splenic infarction. There has been interval hypertrophy of the noninfarcted portion of the spleen. 4. Cirrhotic configuration of the liver with enlargement of the portal veins and multiple splenogastric varices, compatible with portal hypertension. 5. Diverticulosis without diverticulitis. These findings were discussed by phone with ALTA NIXON by Alba Denise MD on 02/10/2022 2:22 PM. I spent 40 minutes related to this patient's care today, which includes time with the patient, timereviewing medical records and reviewing imaging reports and laboratory results, time updating the chart information, and time composing this note. Dana Padilla MD, MSc children's lunchroom supervisor Director, Thrombosis and Hemostasis Program CC: Emigdio Kauffman-Roya Moseley documented in this encounter Plan of Treatment Upcoming Encounters Date Type Department Care Team (Late st Contact Info) Description 01/04/2025 13:00 EST Office Visit [facility] Ophthalmology - [address] [phone] Gagandeep Rome MD [address] [place] [address], [facility] [address] [place] [phone] 02/11/2025 13:30 EDT Telemedicine [facility] Hematology & Oncology [address] [phone] Dana Padilla MD [address] [place] [address], [facility] [address] [place] [address] documented as of this encounter Results * US LOWER VENOUS DUPLEX (DVT) BILATERAL (02/26/2022 8:53 EDT) Anatomical Region Laterality Modality Vascular Ultrasound Narrative 02/26/2022 14:52 EDT ?No evidence of deep or superficial [...] flow/waveforms and compression. Venous HPI and Indications Lower extremity pain and Lower extremity swelling. Venous Past Medical History Tobacco use and Anticoagulation therapy. Daan Padilla MD [facility] VASCULAR ORDERABLES Final Result documented in this encounter Visit Diagnoses Diagnosis Hypercoagulable state (HCC-CMS)- Primary Primary hypercoagulable state Bilateral leg edema Edema Hypercoagulable state (HCC-CMS) Primary hypercoagulable state Bilateral leg edema Edema documented in this encounter Care Teams Master Scheduler Relationship Specialty Start Date End Date Emigdio Veronica MD [address] [place] [phone] PCP - General Internal Medicine - Primary Care 05/22/20 02/21/24 Starr Paige MD [address] [place], [place] [phone] Hematology 10/08/21 06/09/22 Dana Padilla MD 111 [facility], [address] [place] [phone] Hematology 01/13/22 06/09/22 documented as of this encounter
--- OUTSIDE RECORDS SUMMARY | 2024-11-22 17:06 | XMS_ITS | Encounter Summary ---
Author Organization [facility] Address [address] [place] [address] Care Team Providers Care Glass Washer Name Role Phone Emigdio Veronica MD Primary Care Provider + Starr Paige MD Unavailable [phone] Dana Padilla MD Unavailable Reason for Visit * Reason Comments Abdominal Pain Pt BIBEMS from docto r in [place] w/ chronic abdominal pain and self reported syncope at home. Pt had unwitnessed syncopal episode at doctor's office in [place], staff reports pt was left alone for approx. 2 minutes and was found face down on floor. Cspine cleared by EMS. Pt is AxO x 3. * Auth/Cert Specialty Diagnoses / Procedures Referred By Contkanchan t Referred To Contact Diagnoses Portal vein thrombosis LUQ abdominal pain Orthostatic hypotension Referral ID Status Reason Start Date Expiration Date Visits Re quested Visits Authorized [id number] 1 1 Encounter Details Date Type Department Care Team (Late st Contact Info) Description 02/10/2022 11:12 EDT - 02/12/2022 14:10 EDT Hospital Encounter [place] [address] General Medicine Telemetry Unit [address] [place] [address] Bobby Franklin MD [address] [place] [id number] Laurent Solorzano MD [address] [facility], [facility], Level [address] [place] [address] Ebenezer Qiu MD [address] [id number] Portal vein thrombosis (Primary Dx); LUQ abdominal pain; At high risk for falls; Anticoagulation management encounter; Arterial hemorrhage; Pancytopenia (HCC) (HCC-CMS); HUEY (obstructive sleep apnea); Chronic pain syndrome; Chronic respiratory failure with hypoxia (HCC-CMS) (HCC); Other cirrhosis of liver (HCC) (HCC-CMS); 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HCC-CMS) (HCC) Discharge Disposition: Home or Self [...] Job Start Date 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 No / Unsure 01/13/2022 7:24 EST documented as of this encounter Last Filed Vital Signs Vital Sign Reading Time Taken Comments Blood Pressure 96/52 02/12/2022 0601 EDT Pulse 87 02/10/20222011 EDT Temperature 36.4 ??C (97.5 ??F) 02/12/2022 0601 EDT Respiratory Rate 16 02/12/2022 0601 EDT Oxygen Saturation 96% 02/12/2022 0601 EDT Inhaled Oxygen Concentration - - Weight 102.5 kg (226 lb) 02/10/2022 1824 EDT Height 162.6 cm (5' 4.02) 02/10/2022 1824 EDT Body Mass Index 38.77 02/10/2022 1824 EDT documented in this encounter [...] No 02/10/2022 18:24 EDOtilio Leigh RN documented as of this encounter Mental Status * Because of a physical, mental, or emotional condition, do you have serious difficulty concentrating, remembering, or making decisions? (5 years old or older) Answer Entry Date Author No 02/10/2022 18:24 Otilio Romero RN documented in this encounter Discharge Summaries * Ebenezer Qiu MD - 02/12/2022 1235 EDT HOSPITAL MEDICINE DISCHARGE SUMMARY Primary Care Provider: Emigdio Veronica Attending Physician: No att. providers found Admit Date: 02/10/22 Discharge Date: 02/12/2022 Disposition (location): Home Condition at Discharge: Stable Reason for Admission (chief complaint): LUQ pain, syncope Principal/Final Diagnosis: Portal vein thrombosis Transition of care: [facility] Transition of Care report automatically routed to PCP office on discharge.Additional handoff communication performed via: Phone or Verbal Clinical Issues Needing Follow-up 1. Pertinent medication changes: - Hold TRACK LEADER apixaban until heme follow-up - Hold TRACK LEADER spironolactone and lasix - If gaining 3-4 lbs, restart spironolactone 50 mg and lasix 20mg - Hold TRACK LEADER trazadone until PCP/sleep study follow-up (interested/agreeable to trial CPAP again) 2. Recommended follow-up tests/procedures needed: - F/u with PCP Dr. Vega on 02/17 with labs beforehand- CBC and BMP ordered - Will f/u with hematology outpatient- Dr. Padilla - Needs repeat polysomnogram with CPAP or BiPAP titration 3. Anticoagulation on discharge: No-stopped prior ppx apixaban 4. 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 She reportedly had normal VS's and normal glucose at the time of her apparent syncope. In the ED, she was afebrile and VS's were stable. Labs were not changed from baseline and she underwent CTA of the abdomen, which was notable for a small area of active arterial extravasation into her known extensive portal venous thrombosis without visible source vessel and without intraperitonealbleeding, as well as interval hypertrophy of the noninfarcted portion of the spleen. IR felt there was no role for intervention and noted that the finding of the arterial blush into her portal vein was not likely to be the cause of her pain or syncope. She was seen by hematology who recommended stopping her eliquis, and was admitted to medicine. Of note, she reported that her PCP had recently incr eased her diuretics for leg swelling, and she had become increasingly posturally dizzy since that time. She also reported very poor sleep and noted that she is constantly nodding off during the day, to the point that she had even fallen asleep while standing before. She acknowledged that she had previously been on CPAP but stopped this because of discomfort, and was using only nocturnal home O2. She was given IVF for apparent volume depletion and had no further orthostatic symptoms thereafter. Telemetry monitoring revealed a stable sinus rhythm throughout her stay and her abdominal pain returned to baseline. Her labs (Hgb etc) remained stable, although notable for pancytopenia. B12 was low normal and SPEP without any monoclonal immunoglobulins. PT evaluated the patient and felt she was appropriate for DC to home. Hematology recommended holding her TRACK LEADER apixaban until outpatient follow up. She was discharged home on 02/12/22. Relevant Imaging/Procedures Performed: Imaging CT ANGIO ABDOMEN PELVIS 02/10/2022: 1. ??New from prior exam, there is a small area of active arterial extravasation into the extensiveportal venous thrombosis. The extent of portal venous thrombosis is unchanged. This small area of active extravasation would be unlikely to account for the patient's hypotension. 2. 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 3. 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 There has been interval hypertrophy of the noninfarcted portion of the spleen. 4. 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 5. ??Diverticulosis without diverticulitis. Labs: Results for TARA BOOTHE ( ) as of 02/12/2022 15:34 02/11/2022 05:54 02/11/2022 05:54 02/12/2022 07:16 Sodium 137 139 Potassium 4.5 4.5 Chloride 106 107 CO2 25 26 Anion Gap 6 6 BUN 18 17 Creatinine 0.93 0.89 GFR, Calculated 67 70 Glucose, Serum 111 (H) 117 (H) Calcium 8.4 (L) 8.4 (L) Total Protein 6.2 (L) 6.2 (L) 6.3 Albumin 3.3 (L) 3.4 ALBUMIN/GLOBULIN RATIO - PMC 1.1 1.2 ALT 11 12 AST 22 22 Bilirubin, Total <0.5 0.5 Total Alkaline Phosphatase 87 120 Vitamin B-12 309 Folate 7.5 Iron 92 TIBC 428 Iron Saturation 21 Albumin 53.5 (L) Alpha 1 3.6 Alpha 2 8.8 Beta 14.4 (H) Gamma 19.7 (H) Immunotyping,Serum Current Interpretation: Negative for monoclonal immunoglobulins.Reviewed by: Doyle Erickson MD ... WBC 3.37 (L) 3.83 (L) RBC 3.77 (L) 3.77 (L) Hemoglobin 10.4 (L) 10.7 (L) HCT 33.2 (L) 32.4 (L) MCV 88 86 MCH 27.6 28.4 MCHC 31.3 (L) 33.0 RDW-CV 17.2 (H) 17.0 (H) RDW-SD 55.3 (H) 53.4 (H) PLT 85 (L) 94 (L) Results Pending at Discharge: Test results still pending from this admission None Upcoming Appointments Feb 17, 2022 10:00 Office Visit Medium with Emigdio Veronica MD [facility] - [place] ([facility]) [address] [facility] [address] Feb 22, 2022 10:00 New Patient Visit with Anusha Medina, PT [facility] Rehabilitation Therapy - Medical Office Building (--) [address] [facility] [address] Feb 22, 2022 14:00 Follow Up Visit with Dana Padilla MD [facility] Hematology & Oncology - [place] ([facility]) [address] [facility] [address] Mar 12, 2022 11:00 OFFICE VISIT 60 with Anusha Medina, PT [facility] Rehabilitation Therapy - Medical Office Building (--) [address] [facility] [address] March 23, 2022 11:00 OFFICE VISIT 60 with Anusha Medina PT [facility] Rehabilitation Therapy - Medical Office Building (--) [address] [facility] [address] April 09, 2022 11:00 OFFICE VISIT 60 with Anusha Medina PT [facility] Rehabilitation Therapy - Medical Office Building (--) [address] [facility] [address] Follow-up appointments and procedures Amb Consult/Follow Up Primary Care Physician - [facility] Stopped AC due to possible bleeding arterial into portal venous system, will f/u with heme Recommend trial of CPAP/sleep study again BMP in 1 week prior to restarting diuretics (at lower dose likely) Reason for Request: f/u recent presyncope admission to resume diuretics as appropriate Expected Discharge Date (Inpatient Only): 02/14/2022 Authorizing Provider: Suhail Gaspar MD Amb Consult/Follow Up Hematology Stopped due to CTA showing arterial bleeding into portal venous system, though no extrav into peritoneum Reason for Request: prior AC for chronic portal vein thrombus and splenic vein embolization Expected Discharge Date (Inpatient Only): 02/14/2022 Authorizing Provider: Suhail Gaspar MD Follow-up labs and tests Basic Metabolic Panel (BMP) Complete by: Feb 16, 2022 (Approximate) Scheduling Instructions: Blood Test and [...] time, talk to your physician. Authorizing Provider: Suhail Gaspar MD Arjun Fung-Janardhan, MD Internal Medicine, PGY-3 Pager [phone] 02/12/22 15:47 Attending attestation: Patient seen and examined by me personally. I agree with findings/plans as outlined in resident's note above. Ebenezer Qiu MD (I spent > 30 mins - all FTF and coordination) documented in this encounter Discharge Instructions * Discharge Instr - AVS First Page* Suhail Gaspar MD - 02/12/2022 12:34 EDT Please STOP taking your prior diuretics (water pills) lasix and spironolactone until you follow-up with your PCP after blood work next week. Please STOP taking your prior apixaban (Eliquis) until you follow up with Dr. Padilla your referral and information aide. Please STOP taking your trazadone until you have further sleep study follow-up with your PCP and referral if needed as it is very dangerous for sedative medications given your opioid use and sleep apnea. IF you notice you are gaining weight by the time of follow-up (more than 3lbs in a day or 5lbs in 3-4 days, please restart your lasix at 20mg daily and spironolactone at 50mg daily). * Attachments The following attachments cannot be sent through Care Everywhere. * CPAP for Sleep Apnea (Filipino) documented in this encounter Medications at Time [...] needed for Wheezing. 1 Inhaler 04/13/2021 3 amitriptyline (ELAVIL) 25 mg tablet Take 1 Tablet by mouth at bedtime. 60 Tablet 2 11/25/2021 2 ferrous sulfate 324 mg (65 mg iron) tablet,delayed release (DR/EC) Take 1 Tablet by mouth every 48 hours. 30 Tablet 3 11/11/2021 2 levothyroxine (SYNTHROID) 25 mcg tablet Take 1 Tablet by mouth daily before breakfast. 90 Tablet 1 11/11/2021 2 mupirocin (BACTROBAN) 2 % ointment Apply 3 times a day for 1 week for painful sore on lower right leg. 30 g 09/18/2021 2 ondansetron (ZOFRAN-ODT) 4 mg disintegrating tablet TAKE 1 TABLET BY MOUTH EVERY 4 TO 6 HOURS NEEDED FOR NAUSEA. 21 Tablet 12/21/2021 2 pantoprazole (PROTONIX) 40 mg tablet Take 1 Tablet by mouth 2 times daily. 30 Tablet 3 01/05/2022 2 sertraline (ZOLOFT) 50 mg tablet TAKE 1 TABLET BY MOUTH EVERY DAY 90 Tablet 1 10/06/2021 2 sucralfate (CARAFATE) 1 gram tablet Take 1 Tablet by mouth 4 times daily. 120 Tablet 3 12/10/2021 2 SYMBICORT 160-4.5 mcg/actuation HFA aerosol inhaler inhalerIndications:C OPD with asthma ([facility]) INHALE 2 PUFFS DIRECTED DAILY. 10.2 Each 1 11/09/2021 documented as of this encounter Discharge Disposition Disposition Code Departure Means Destination Home or Self Half-Way documented in this encounter Progress Notes * Severo Robertson RN - 02/12/2022 1410 EDT Discharge Summary: Patient alert and oriented x4. VSS RR even and unlabored on room air when awake- 2L NC when asleep.Continues with 710 LUQ abdominal pain- prn oxy given x2 this shift with moderate effect. Pt ambulating to bathroom with steady gait and continent. Ambulating in halls with staff without assistive devices without difficulty. MD cleared discharge- avs reviewed and patient educated on medications to stop taking- she verbalizes understanding. Patient plans on attending follow up appointments and states she will notify primary provider of sleep apnea and will do a sleep study. All questions and concerns addressed. Patient discharged back home- roommate present for pickup. Patient has all belongings upon discharge * Ivy Bailey, PT - 02/12/2022 1108 EDT [facility] Rehabilitation Therapy Acute Therapy [place] [facility] Initial Evaluation Note/dc note Date of Service: 02/12/2022 Reason for Referral: Priority for discharge Mobility Precautions Activity: Up with assistance SUBJECTIVE: Reporting Person Comment: pt reports she is ready to go home. she can rest there as well as she canhere. Pain Comments: pt lives with chronic BLE pain of 6-7/10 at baseline. current pain not reported OBJECTIVE: Patient Profile: Patient is a 61 y.o. female admitted on 02/10/2022 secondary to Portal vein thrombosis The patient lives at [address] [place], [place] [id number] History of Present Illness / Injury Current Illness / Injury: per MD:Tara Boothe is a 61 y.o. 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 Presentation most likely 2/2 orthostatic hypotension due to overdiuresis and acute on chronic pain exacerbation. Plan to titrate diuretics and pursue outpatient sleep study for CPAP. Support Support Person: Roommates, Son Number of caregiver roommates: 2 Age of Caregiver Roommates: one roommate able to assist pt as needed Support Comment: roommate able to assist. son local and can assist as needed Prior Level of Function: Prior Level of Function Comment: indep. reports 4 falls x 3 months. feels like she falls asleep when she's standing Occupation Comment: not working Previous / Ongoing Services: None Basic Activities of Daily Living - General Level of Assistance Throughout: Independent Medical/Surgical History: Current: The patient has Pancytopenia (HCC); Mild persistent asthma without complication; Drug-seeking behavior; Splenic vein thrombosis; Chronic pain syndrome; Other cirrhosis of liver (HCC); Obesity, Class II, BMI 35-39.9; Hypothyroidism; Abdominal wall hernia; Allergic rhinitis; Partial small bowel obstruction (HCC-CMS) ([facility]); HUEY (obstructive sleep apnea); Dyspnea; Nephrolithiasis; Left ureteral stone; COPD (chronic obstructive pulmonary disease) ([facility]-CMS) ([facility]); Portal vein thrombosis; Frequent falls; Fluid overload; Moderate protein-calorie malnutrition (HCC-CMS) (HCC); Hypersplenism; 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[facility]) (HCC); Chronic respiratory failure with hypoxia ([facility]-CMS) (HCC);Peptic ulcer disease with hemorrhage; Thrombocytopenia ([facility]-CMS) (HCC); Abdominal pain; LUQ abdominal pain; and Orthostatic hypotension on their problem list. Past: The patient has a past medical history of Anemia, Anxiety, Asthma (12/10/2020 currently not taking - mild persistent - see dr. Veronica 11/20/2021; 01/11/22- uses rescue inhaler twice daily), Blood clotting disorder (HCC-CMS) ([facility]) (blood clot in place- spleenic vein; per pt), Bursitis (right shoulder), C. difficile colitis (Hospitalized after kidney stone removal), Chronic kidney disease, Cirrhosis of liver (HCC-CMS) ([facility]), Community acquired pneumonia (january 2021), COPD exacerbation (HCC-CMS) (HCC), Depression, Drug-seeking behavior (Per Dr Amelia Tijerina and notes from [facility] patient misconstrued information to several providers about [...] and off throughout day; BLE; 01/11/22-), Thrombocytopenia (HCC-CMS) (HCC) (12/10/2020 - see 11/20/2020 Dr. Veronica H&P, (managed by Starr Paige MD)), and Thyroid disease. The patient has a past surgical history that includes hernia repair; Appendectomy; Tonsillectomy; Cholecystectomy; Hysterectomy; knee surgery (Bilateral); joint replacement (Bilateral); Wrist surgery(Right); Gastric fundoplication (1989); bone marrow biopsy; Cystoscopy (12/03/2020); other surgicalhistory; and Upper gastrointestinal endoscopy. Medications Current Medications: Current medications reviewed CT Angiogram of the Abdomen and Pelvis CLINICAL HISTORY: ??Syncope, hypotension, prior splenic artery embolization TECHNIQUE: Helical [...] review. Total DLP is 40-68.8 mGy*cm. COMPARISON: ??CT angiogram abdomen and pelvis 11/03/2021 FINDINGS: VASCULAR STRUCTURES: The abdominal aorta is normal in course and caliber. ?? The major mesenteric vessels in the abdomen, including the celiac axis, superior mesenteric artery,inferior mesenteric artery, and their respective branches, are patent. There is a small area of active arterial extravasation into the portal vein thrombosis which is new from prior (series 507 ). There is an unchanged 1.5 cm saccular [...] intrahepatic or extrahepatic biliary ductal dilatation. PANCREAS: ??Unremarkable. Normal caliber main pancreatic duct. SPLEEN: Redemonstrated partial splenic infarction status post embolization, with interval hypertrophy of the viable portion of the spleen. Overall splenic size has decreased in the interim, [id number] cm craniocaudal, previously 20 cm craniocaudal. ADRENAL GLANDS: ??Unremarkable. GENITOURINARY: The kidneys enhance [...] right upper abdomen. No bowel- containing hernia. Impression: ?? 1. ??New from prior exam, there is a small area of active arterial extravasation into the extensiveportal venous thrombosis. The extent of portal venous thrombosis is unchanged. This small area of active extravasation would be unlikely to account for the patient's hypotension. 2. 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 3. 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 There has been interval hypertrophy of the noninfarcted portion of the spleen. 4. 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 5. ??Diverticulosis without diverticulitis. Arousal, Attention, and Cognition: Orientation Level: Oriented X 4 Behavioral Characteristics: Pleasant and cooperative Cardiopulmonary: Vital Signs Activity Type: supine 106/50; sitting 108/54, standing 11/58. no dizziness. RA>93% throughout Integumentary/Anthropometric: Skin Integrity Integrity: Intact Standing Posture General Assessment: No problems noted Range of Motion and Joint Integrity: General Assessment Range of Motion: Within normal limits Muscle Performance: Strength: No problems noted Sensation, Reflexes, and Nerve Integrity: Sensory Functions: No problems noted Neuromotor Function/Development: Neuromotor Function/Development: No problems noted Balance, Mobility, and Gait: Static Sitting Balance Static Sitting Balance: No problems noted Dynamic Standing Balance Dynamic Standing Balance: No problems noted Level of Assistance: Modified independent Sit to Supine Level of Assistance: Complete independence Set Up: Left Supine to Sit Level of Assistance: Complete independence Set Up: Left Sit to Stand Transfer: From bed Level of Assistance: Complete independence Stand to Sit Transfer: To bed Level of Assistance: Complete independence Gait: No problems noted Total Distance: 175' Gait Assistance and Cues Level of Assistance: Modified independence Assistive Devices Additional Comments: none Symptoms During Gait Symptoms During Gait: None Stairs Additional Comments: declined need to try stairs; expresses no concerns Self-Care, Home Management, Work, Leisure: NA Informed Consent: The patient consented to the Physical Therapy evaluation. The patient agrees to and understands thePhysical Therapy treatment plan and goals. Interventions Completed Today: Time: 0950 Total Treatment Time (minutes): 20 Timed Code Treatment Minutes: 0 No interventions completed today Patient Status at the End of the Therapy Session, The patient was left in the: bed with the: Call hines in reach Patient/Family Education: Activity/Work/Community: Activity modification Braces and Equipment: Equipment needs Recommendations: Discharge recommendations/planning Safety: Safety Therapy Specific: Role of physical therapy Learner: Patient Method: Verbal Barriers to Learning: None Outcome: Verbalized understanding, Returned demonstration Team Communication Team Communication Status: No communication needed at this time ASSESSMENT: The patient presents with a physical therapy diagnosis of: Impaired mobility which is consistent with the medical diagnosis of: admission for syncope, LUQ pain, low BP Physical therapy examination reveals the following impairments: activity tolerance, endurance These impairments contribute to the following activity limitations: mobility, activities of daily living PT referral to assess mobility. pt is indep w/o DME at baseline. she lives wiht 2 roommates, one ofwhich is helpful. pt reports several falls, may be due to hypotension orthostatics stable today; no dizziness reported. pt demonstrating adequate mobility for dc home with roommates and support from son. pt expresses no dc concerns. she would like a cane but states shecan't afford one no further acute PT needs Short-Term Goals:NA Long-Term Goals: NA PLAN: Discontinue physical therapy services Recommended Discharge Destination Comments: home with roommates Therapy Specific Services: No more skilled therapy needs Equipment Recommended Comments: maggi BAILEY PT 02/12/2022 11:22 * Ebenezer Qiu MD - 02/11/2022 0702 EDT Medicine Progress Note Service Date: 02/11/2022 Admit Date: 02/10/2022 11:12 Reason for Admission: 61 y.o. female admitted with a chief complaint of syncope with LUQ pain and now with a principal diagnosis of portal vein thrombosis. 24 Hour Events: -NAEO Subjective Is feeling about this same this morning. Slept a little overnight, but not much. Still feels tired.Abdominal pain has not improved and is still above baseline. Slightly SOB but says sitting on the side of the bed helps. Was able to eat breakfast. Has been able to walk to the bathroom without feeling like she might pass out and encouraged getting out of bed and walking laps. Is concerned about her platelet count and how it initially improved after the partial embolization but has started to decrease again. Review of Systems A ten point review of systems was performed and was negative except for pertinent positives noted in the HPI Objective Vital Signs Temp: [36.1 ??C (97 ??F)-36.8 ??C (98.3 ??F)] , Heart Rate: [67 BPM-91 BPM] , Resp: [12-20] , BP: (76-112)/(43-77) , SpO2: [94 %-100 %] Physical Exam General:??No acute distress, sitting up in bed HEENT: Normocephalic, atraumatic.??Dry oral mucosa without apparent lesions Eye: PERRL, EOMI, clear conjunctivae Neck: Full ROM, no cervical LAD Heart: RRR w/o MRG Lungs: No respiratory distress. Clear to auscultation b/l w/o W/R/R Abdomen: Tender to palpation in upper abdomin L>R, peritoneal signs, +BS, no ascites no signs ofedema Skin: No overt rashes or lesions on exposed skin Extremities: Moving spontaneously, warm. 1+ LE edema Neuro: A&Ox3, CN grossly intact, normal speech, moving extremities spontaneously Psych: Appropriate Medications: Reviewed Labs Recent Labs 02/10/22 1650 02/10/22221502/11/22 0554 WBC 3.78* 3.95* 3.37* HGB 10.6* 10.4* 10.4* HCT 32.6* 32.0* 33.2* PLT 91* 96* 85* Recent Labs 02/10/22 1145 02/11/22 0554 NA 139 137 K 4.7 4.5 CL 103 106 CO2 30 25 BUN 20 18 CREATININE 1.06* 0.93 MG 1.9 -- Recent Labs 02/10/22 1145 02/11/22 0554 ALT 13 11 AST 27 22 ALKPHOS 151* 87 TBIL 0.6 <0.5 LIPASE 101 -- Recent Labs 02/10/22 114 TROPONINI <0.034 Recent Labs 02/10/22 1145 02/10/22221502/11/22 0554 PROTIME 11.9 13.3* 12.9* PTT 32 32 30 INR 1.0 1.2* 1.1 D-Dimer: 1,994 on 02/11 at 05:[address] ANGIO ABDOMEN PELVIS 02/10/2022: 1. ??New from prior exam, there is a small area of active arterial extravasation into the extensiveportal venous thrombosis. The extent of portal venous thrombosis is unchanged. This small area of active extravasation would be unlikely to account for the patient's hypotension. 2. 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 3. 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 There has been interval hypertrophy of the noninfarcted portion of the spleen. 4. 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 5. ??Diverticulosis without diverticulitis. Assessment Tara Boothe is a 61 y.o. 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 Presentation most likely 2/2 orthostatic hypotension due to overdiuresis and acute on chronic pain exacerbation. Plan to titrate diuretics and pursue outpatient sleep study for CPAP. Plan Hypotension, Syncopal episodes, Fatigue: likely pre-renal 2/2 decreased volume status after increase in spironolactone and lasix doses recently - S/p 1L IVF in ED - Hold diuretics for now (TRACK LEADER spironolactone 75mg and lasix 40mg daily) - ordered orthostatic vitals, pending ?? Arterial extravasation into portal venous thrombosis: Discussed w/ IR, most likely represents small arterial communication with portal vein thrombosis, low likelihood to cause symptomatic hypotension or pain - hold TRACK LEADER apixaban - discussed with IR, no indication for surgical intervention - Trend CBC + DIC labs (PT, PTT, fibrinogen, d dimer) daily - Heme does not recommend PCC at this time given last dose of apixaban was in AM of 02/10 (although pt has CKD and may have delayed clearance) and bleed is small (Hb slight decrease, but received IV fluids). Would consider PCC if clinical decompensation. - Heme consulted, appreciate recs ?? Acute on chronic abdominal pain: possibly due to worsening hypertrophy of remianing spleen along with her chronic pain syndrome, currently mostly improved at time of admission. Unlikely related to portal venous thrombosis related bleeding above - TRACK LEADER oxycodone BID PRN Chronic Severe HUEY, with signs of pulmonary hypertension and right heart strain - TTE (11/04/22): right ventricular cavity was upper limits of normal in size. Right ventricular systolic function was normal. Right ventricular wall thickness was normal; - will refer for outpatient polysomnogram ?? 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 VTE Prophylaxis - Hold eliquis per heme ?? Code: Full -> not discussed Discharge Plan - Home or self care likely ?? Consults - Hematology ?? Admission status Inpatient admission due to anticipated duration of hospitalization is two midnights or greater due to LUQ abdominal pain 2/2 possible arterial hemorrhage into portal vein or enlarged spleen. -> changed to observation status after further review ESHA MATA, Medicine 02/11/2022 11:15 I was present with the medical student for the history, exam, and medical decision making documented. I have edited the medical student note as appropriate. Kip Dugan MD 02/11/2022 12:01 Internal Medicine, PGY1 Pager [phone] Attending attestation: I have seen and examined the patient and agree with findings and plans as outlined in the resident's note above. Check orthostatics, hold diuretics and Rx more IVF if positive. Her pancytopenia may be related to cirrhosis or another process. Will repeat anemia markers, obtain SPEP and monitor. May need heme referral and possible BM bx at some point. HUEY to be re-evaluated outpatient as she needs a repeat CPAPand/or BiPAP titration. Ebenezer Qiu MD * Jennifer Taylor, RT - 02/10/2022 1716 EDT Respiratory Consult/Progress Note Indications for Respiratory therapy: COPD/HUEY hx Data Vitals: Heart Rate: 78 BPM, Resp: 18, SpO2: 98 % FIO2/O2 Device: O2 Flow Rate (L/min): 2 l/min, , O2 Device: Nasal cannula, RT Orders: Protocol Scoring: Bronchodilator/Inhalation Therapy Frequency Bronchodialator - Clinical Indications: History of COPD Breath Sounds: Any abnormal BS decreased Response: No change / no treatment Pulse: <100 Resp Rate: <18 SOB: None Total Score: 1 Frequency Based On Total Score: 0-4 = [...] Requirements: 0-2 L above baseline Mobility Status: Mobile / at baseline Total: 2 Frequency Based On Total Score: 0-3 = PRN 4-6 = QID and PRN 7-9 = Q4H and PRN 10-12 = Q2H and PRN Action/Events Respiratory events; Pt consulted for history of HUEY and COPD. Per patient, she uses albuterol MDI once daily, symbicortBID, and wears 2lpm nasal canula at night. Pt states she does not use a CPAP/BIPAP. MDI's can transfer to RN Jennifer Taylor RT 02/10/22 documented in this encounter H&P Notes * Ebenezer Qiu MD - 02/10/2022 1704 EDT Hospital Medicine Admission History & Physical Service Date: 02/10/2022 Admit Date: 02/10/2022 Primary Care Provider: Emigdio Veronica Chief Complaint: LUQ pain, syncope HPI Tara Boothe is a 61 y.o. 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 In the ED, two large bore IVs were immediately placed and the patient was given 1L IVF, 4 mg of Zofran, and 1mg dilaudid. Per ED provider, IR felt no role for IR intervention and small bleed should not contribute to patient's hypotension (BP 90s/50s, but not tachycardic). CT was ordered and showed a small area of active arterial extravasation into her extensive portal venous thrombosis and evidence of her prior partial splenic artery embolization. There has been interval hypertrophy of the noninfarcted portion of the spleen. She was seen by hematology and they requested a D-dimer, fibrinogen,INR, and Anti-XA levels. At that time, the patient was relatively stable with a small amount of bleeding, and heme did not feel that she required reversal with PCC. Patient reports had an appointment with her PCP this morning for management of chronic medical problems. She hasn't been able to sleep at all for the past few days and has been very anxious. She was diagnosed with HUEY about a year ago but does not use a CPAP as she didn't think it helped much so uses 2L of oxygen at night and 2L during day if needed. Pt reports having passed out 3-4x at home in past few months and was woken up by her roommates. Does not feel syncopal episodes coming on and feels like she falls asleep standing up. Also has chronic abdominal pain, but it says it was much worse today. Abdominal pain does not change with eating, though her appetite has been poor since her 10-day hospital stay in September 2021 for a GI bleed. In the office, the nurse had taken her to her room and she suddenly felt dizzy and passed out. She fell forward on the floor but didn't remember falling. The next thing she remembers was coming to the ED in the ambulance. Her abdominal pain is better now but is still worse than normal. Endorses extreme fatigue and mild dyspnea. Denies fevers, CP at rest and on exertion, and cough. Pt reports gaining around 30 lbs in the past month. Said she her belly was bloated and her legs were swollen so her provider increased her dose of spironolactone and lasix last week. Has no difficulty urinating and has normal BMs. She lives with roommates. Son lives nearby. Review of Systems A complete 10 point [...] Per Dr Amelia Tijerina and notes from [facility] patient misconstrued information to several providers about [...] (HCC-CMS) (HCC) 12/10/2020 - see 11/20/2020 Dr. Glenys Coreas&P, (managed by Starr Paige MD) ??? Thyroid [...] Last attempt to quit: 08/20/2016 Years since quittin.4 ??? Smokeless tobacco: Never Used ??? Tobacco [...] Neg Hx ??? Endometrial Cancer Neg Hx Allergies Allergen Reactions ??? Metoclopramide Nausea Only, [...] Reglan [Metoclopramide Hcl] Rash Objective Vitals Temp: [36.1 ??C (96.9 ??F)-36.1 ??C (97 ??F)] , Heart Rate: [74 BPM-91 BPM] , Pulse: [80-82] , Resp: [12-20] , BP: (76-100)/(43-77) , SpO2: [94 %-100 %] , O2 Flow Rate (L/min): 2 l/min Numeric Pain Level (Scale 1-10): 10 Weight: There is no height or weight on file to calculate BMI. Physical Exam General: No acute distress, lying in bed HEENT: Normocephalic, atraumatic. Moist oral mucosa without apparent lesions Eye: PERRL, EOMI, clear conjunctivae Neck: Full ROM, no cervical LAD Heart: RRR w/o MRG Lungs: No respiratory distress. Clear to auscultation b/l w/o W/R/R Abdomen: Tender to palpation in upper abdomin L>R, peritoneal signs, +BS, no ascites no signs ofedema Skin: No overt rashes or lesions on exposed skin Extremities: Moving spontaneously, warm. 1+ LE edema Neuro: A&Ox3, CN grossly intact, normal speech, moving extremities spontaneously Psych: Appropriate Labs I have personally reviewed Recent Labs 02/10/22 1145 02/10/22 1533 02/10/22 1650 WBC 3.91* < > 3.78* RBC 4.37 < > 3.83* HGB 12.2 < > 10.6* HCT 37.6 < > 32.6* MCV 86 < > 85 MCH 27.9 < > 27.7 MCHC 32.4 < > 32.5 PLT 100* < > 91* NEUTROABS 3.17 -- -- < > = values in this interval not displayed. Recent Labs 02/10/22 1145 NA 139 K 4.7 CL 103 CO2 30 BUN 20 CREATININE 1.06* CALCIUM 9.1 MG 1.9 LABALBU 4.2 Recent Labs 02/10/22 1145 PROTIME 11.9 INR 1.0 PTT 32 Recent Labs 02/10/22 1145 TROPONINI <0.034 Recent Labs 02/10/22 1650 BEART 2.00 Recent Labs 02/10/22 1145 TBIL 0.6 ALKPHOS 151* AST 27 ALT 13 LIPASE 101 Recent Labs 02/10/22 1424 COLOR Yellow CLARITYU Clear GLUCOSEU Negative BILIRUBINUR Negative KETONES Negative LABSPEC 1.034 PHUR 8.0 PROTEINUA Negative UROBILINOGEN Normal NITRITE Negative LEUKESTER Negative WBCU 0 - 3 RBCU 11 - 50* BACTERIA None Seen LABCAST <=[address] ANGIO ABDOMEN PELVIS 02/10/2022: 1. New from prior exam, there is [...] with portal hypertension. 5. Diverticulosis without diverticulitis. Assessment Tara Boothe is a 61 y.o. 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 She received IV fluids in the ED and was consulted by heme. Will be admitted to medicine for further monitoring with more likely pain related to her fall in setting of her chronic abdominal pain and less likelycontributing arterial hemorrhage into portal venous thrombus. Dizziness and low BPs likely related to recent increase in patient's diuresis that we will monitor off TRACK LEADER diuretics. Plan Hypotension, syncopal episodes, Fatigue:: likely pre-renal 2/2 decreased volume status after increase in spironolactone and lasix doses recently. Under-treated HUEY not on CPAP, worsened by oxycodone use and sedating medications may also be contributing. - s/p 1L IVF - Hold diuretics for now (TRACK LEADER spironolactone 75mg and lasix 40mg daily) - On oxygen 2 L at home when sleeping - Will try CPAP inpatient Arterial extravasation into portal venous thrombosis: - Stop apixaban - Check anti-Xa (heparin) level once - Trend CBC + DIC labs (PT, PTT, fibrinogen, d dimer) [id number] - Heme does not recommend PCC at this time given last dose of apixaban was in AM of 02/10 (although pt has CKD and may have delayed clearance) and bleed is small (Hb slight decrease, but received IV fluids). Would consider PCC if clinical decompensation. - F/u formal heme consult on 02/11 Acute on chronic abdominal pain: possibly due to worsening hypertrophy of remianing spleen along with her chronic pain syndrome, currently mostly improved at time of admission. Unlikely related to portal venous thrombosis related bleeding above. 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 -> changed to observation status after further review ESHA MATA, Medicine 02/10/2022 18:15 I was present with the medical student for the history, exam, and medical decision making documented. I have edited the medical student note as appropriate (in purple). Suhail Gaspar MD Internal Medicine, PGY-3 Pager [phone] 02/10/22 20:49 Attending attestation: I have seen and examined the patient and agree with findings and plans as outlined in the resident's note above. 61 y/o woman with PMHx inc cirrhosis (thougth to be due to NAFLD), PV/SV thrombi (on eliquis), partial splenic embolization (Sep), poorly treated HUEY (refused CPAP in the past, now on HS O2 - hasmarked sleep disruption and severe daytime somnolence), chronic abdominal pain (on opioids) and COPD, who presents after an episode of syncope at her PCP's office. Her VS's and glucose were normal atthe time, but she complained of acute on chronic, mostly left sided abdominal pain once aroused. She was sent to the ED, where a CTA of the abdomen revealed evidence on a small arterial hemorrhage into her portal vein thrombus (arterial source vessel not identified), as well as marked interval hypertrophy of the viable/unembolized portion of the spleen. Her abdominal pain has returned to its chronic level and she notes that her diuretics were recently increased, with marked improvement in her leg swelling, but lower than usual BPs and increased dizziness. I suspect that she has severe HUEY (nodoubt exacerbated by narcotics and sleep medications) leading to PaHTN, rendering her more preload d ependent and susceptible to loss of LV output in the face of diuresis. Her pain seems chronic and the very interesting finding of arterial extravasation into her portal vein thrombus may actually be somewhat incidental. Will admit to telemetry, stop Eliquis and diuretics, monitor Hgb and VS closely, and limit sedating medications. Check orthostatic VS's tomorrow (after IVF). She needs to have a new CPAP (or preferably BiPAP titration) and should really be avoiding opioids and all other sedatingmedications. In keeping with ongoing severe HUEY, an Echo in October showed borderline RV dilation and a repeat echo is unlikely to shed much more light on things at the moment. ?? Ebenezer Qiu MD ?? documented in this encounter Consult Notes * Ellijay, Monse Charles MD - 02/11/2022 3934 EDT Hematology Consult (Initial) ASSESSMENT AND PLAN Assessment: 1. Portal vein thrombosis (on Apixaban TRACK LEADER) complicated by new active arterial extravasation into thrombosis site Per chart review, splenic vein thrombus first seen 12/2016, later referred to as a portal vein thrombus (not noted as a separate entity). It has fluctuated in size over time though recently stable while on prophylactic anticoagulation. Now found to have active arterial extravasation into the thrombus. Tara also has a 1.5 cm saccular splenic artery aneurysm and had a partial embolization w/ evid ence of partial splenic infarction (expected, not new from prior in 10/2021) on CT this admission, as well as interval hypertrophy of non-infarcted portion of spleen. Her situation is complicated by prior GIB and thrombocytopenia (as a component of pancytopenia) while on therapeutic Lovenox in the past, though never thought to be due to HIT. Recently (11/30/21) saw Dr. Padilla in [facility] and was transitioned from prophylactic lovenox (60mg daily) to prophylactic apixaban 2.5 mg BID. Notably has never had evidence of PE despite multiple prior CTA chest studies. Tara endorses compliance with her apixaban, however her anti-factor Xa (LMWH) level resulted <0.04 which makes us question her adherence to medication if her last dose was 02/10, especially in the context of renal dysfunction. No evidence of DIC (PT slightly elevated at 12.on 02/11, but INR 1.1, PTT 30. D-dimer 1994 and fibrinogen WNL). Hgb remained stable despite arterial extravasation noted 02/10. Recommendations: - Continue to hold TRACK LEADER apixaban 2.5 mg twice daily due to arterial extravasation as described aboveon CT angiogram. The etiology of this is a bit perplexing. While she has had some recent falls, themechanics of these do not seem to suggest traumatic etiology leading to arterial bleeding especially given that the extravasation is solely into the thrombosis itself and there was not notable peritoneal/retroperitoneal blood. Also no other signs of new trauma in the abdomen on CT scan. However, itis unclear why there would be an arterial collateralization into the thrombus leading to extravasation. Regardless, especially in the context recurrent falls concerning for syncope with head strike, it seems most prudent to keep her off of anticoagulation at this time. Importantly, there is no new clot and the size of her chronic PVT appears stable and is nonocclusive in nature. Of note, she alsohad lower extremity duplex ultrasound in 06/2021 which did not reveal any DVTs. 2. Pancytopenia Chronic in nature, documented since 2014 in our system. However, looking back further she had been seen for pancytopenia as early as 2012, and per notes I was able to access from [facility] (saw Dr. Zeng) it seems it had been a chronic problem prior to this as well. Even back in 2012, her pancytopenia was in the setting of known hepatic cirrhosis, hypersplenism, and chronic HCV infection (last undetec melinda on tested in 2016 and 2017). WBC have dropped below 1k in the past. Given concern for a primarymarrow production problem, she had a bone marrow biopsy done in [address] [facility] (results in Care Everywhere) which was deemed to be normal. However, she also had MGUS listed a resolved problem in someof this documentation but the history of this is unclear. Notably had normal range WBC/platelets and only isolated anemia (has been normocytic) toward the end of 2020, but only for a period of a few months. Now with mild leukopenia and moderate thrombocytopenia once again. All in the setting of known hepatic cirrhosis and hypersplenism. Given these shifts, AC for her PVT has varied over time as above, and since the partial embolization, that non-infarcted portion of the spleen has hypertrophied further since that was done. Labs on 02/11/22 reveal normal B12, folate, and iron studies, so as not to suggest nutritional deficiency. With Tbili <0.5 andstable Hgb as well, seems unlikely to be ongoing hemolysis and do not see much utility in checking h emolysis labs as this time, as these also would not account for other cytopenias. Recommendations: - Hold apixaban as above; would also hold any pharmacologic DVT ppx at this time - Monitor CBC w/ diff, coag studies including fibrinogen daily - F/u SPEP (ordered by primary team) Based on prior BMBx resulting normal and the chronicity of her cytopenias with a lot of fluctuation(well-documented for ~last 10 yrs), it seems less likely that a new primary bone marrow process is leading to hypoproliferation of all cell lines, though this is not definitively ruled out at this time. Seems more likely that this is sequela from cirrhosis/hypersplenism. Does have a hx of HCV but was last undetectable in 2018 and does not appear to have another active infection. Patient seen and case staffed with Dr. Mcdonald. SUBJECTIVE Admit Date: 02/10/2022 Date of Service: 02/11/2022 PCP: Emigdio Veronica Reason for Consultation: Portal vein thrombosis, on anticoagulation, and now w/ new arterial extravasation into thrombosis site Consulting Provider: Dr. Mcdonald HPI: Tara Boothe is a 61 y.o. female with a PMHx of decompensated cirrhosis 2/2 NAFLD c/b portal venous thrombosis (anticoagulated??on Eliquis) and hypersplenism status post partial embolization (04/2021), GI bleed 2/2 duodenal ulcer, COPD, HUEY, asthma, and chronic pain syndrome who presented to theED following a syncopal episode at her PCP's office and increased LUQ pain. CT angio A/P was ordered and showed a small area of active arterial extravasation into her extensive portal venous thrombosis and evidence of her prior partial splenic artery embolization. There was also noted to be interval hypertrophy of the noninfarcted portion of the spleen. Prior PVT was unchanged in terms of size/location. Today, Tara says she feels tired and endorses LUQ abdominal pain that is slightly improved from at the time of admission yesterday. She expresses awareness and understanding of her complex clotting/bleeding situation that has become a chronic problem. She tells me on EGD in the past the doctors told her she had an ulcer but she couldn't remember where or when it was last bleeding. I explained to her that this was a duodenal ulcer and that the stomach had some findings of irritation/gastropathy but there was not bleeding. However, she says her recent EGD earlier this month was normal and free of any bleeding. She denies any bloody stool or dark tarry stool, bloody vomit or coffee-ground em esis. Denies hemoptysis, nosebleeds, oral mucosal bleeding, or recently trauma with prolonged bleeding. Denies asymmetric swelling of her legs nor calf redness/pain. Denies ever having a blood clot in any of her extremities - solely in the portal venous system. She denies ever having a pulmonary embolism and reports compliance with her apixaban, stating her last dose was 02/10 AM. She does state she has been having trouble with falls at home for quite some time. Endorses at least 2 falls over the last month. States when she has fallen it feels like I fall asleep standing up and just go down. Says she is unsure why this happens but states her doctor recently told her that they think she is taking too much sleeping and pain medicines. She said she fell in the kitchen onto her side and then more severely so in the bathroom, falling forward without being able to brace herself with her arms which led to a bloody nose 1.5-2 weeks ago. Said the incident at her PCPs office yesterday was similar and that she got dizzy and felt like she was falling asleep. She is unsure of her blood pressures are typically as low as they have been in the hospital. Denied palpitations. PMH PSH Past Medical History: Diagnosis Date ??? Anemia ??? Anxiety ??? Asthma 12/10/2020 currently not taking - mild persistent - see dr. Veronica 11/20/2021; 01/11/22- uses rescue inhaler twice daily ??? Blood clotting disorder (HCC-CMS) ([facility]) blood clot in place- spleenic vein; per pt ??? Bursitis right shoulder ??? C. difficile colitis 07/25/2015 Hospitalized after kidney stone removal ??? Chronic kidney disease ??? Cirrhosis of liver (HCC-CMS) (HCC) ??? Community acquired pneumonia january 2021 ??? COPD exacerbation (HCC-CMS) (HCC) 04/26/2020 ??? Depression ??? Drug-seeking behavior Per Dr Amelia Tijerina and notes from [facility] patient misconstrued information to several providers about [...] Last attempt to quit: 08/20/2016 Years since quittin.4 ??? Smokeless tobacco: Never Used ??? Tobacco [...] Lovenox 40 mg SC daily - stopped - due to thrombocytopenia, frequent falls aind intermittent [...] lovenox increased to 60 mg/d with rising hemoglobin. ??? COPD (chronic obstructive pulmonary disease) (HCC-CMS) [...] provider: Dr. Ijeoma Smith, GI Department in [facility] for long-standing decompensated liver cirrhosis ??? Obesity, [...] Per Dr Amelia Tijerina and notes from [facility] patient misconstrued information to several providers about multiple concurrent opiate prescription. -IR embolization 09/28/21 for thrombocytopenia. Counts raised from 30s to 200K ??? Abdominal wall hernia 11/05/2016 ??? Allergic rhinitis 11/05/2016 ??? Pancytopenia (HCC) 07/18/2015 -bone marrow biopsy at [facility] in 2013: maturing trilineage hematopoiesis [...] increment: plt count increased up to 68K ??? Nephrolithiasis 11/10/2020 Added automatically from request for surgery [id number] Admission Medications Medications Prior to Admission Medication Sig Dispense Refill Last Dose ??? albuterol 90 mcg/actuation inhaler Inhale 1-2 Puffs as directed every 4 hours as needed for Wheezing. 1 Inhaler 0 ??? amitriptyline (ELAVIL) 25 mg tablet Take 1 Tablet by mouth at bedtime. 60 Tablet 2 ??? apixaban (ELIQUIS) 2.5 mg tablet Take 1 Tablet by mouth 2 times daily. 60 Tablet 6 ??? ferrous sulfate 324 mg (65 mg iron) tablet,delayed release (DR/EC) Take 1 Tablet by mouth every48 hours. 30 Tablet 3 ??? furosemide (LASIX) 20 mg tablet TAKE 2TAB BY MOUTH EVERY MORNING 180 Tablet 1 ??? levothyroxine (SYNTHROID) 25 mcg [...] in excess). 1 Each 1 ??? ondansetron (ZOFRAN-ODT) 4 mg disintegrating tablet TAKE 1 TABLET BY MOUTH EVERY 4 TO 6 HOURS NEEDED FOR NAUSEA. 21 Tablet 0 ??? oxyCODONE (ROXICODONE) 5 mg immediate release tablet Take 1 Tablet by mouth 3 times daily as needed for up to 28 days for Pain. Daily Max: 15 mg 84 Tablet 0 ??? OXYGEN-AIR DELIVERY SYSTEMS MISC 2 L by misc (non-drug; combo route) route at bedtime. ??? pantoprazole (PROTONIX) 40 mg tablet Take 1 Tablet by mouth 2 times daily. 30 Tablet 3 ??? sertraline (ZOLOFT) 50 mg tablet TAKE 1 TABLET BY MOUTH EVERY DAY 90 Tablet 1 ??? spironolactone (ALDACTONE) 50 mg tablet Take 1.5 Tablets by mouth daily for 90 days. 135 Tablet0 ??? sucralfate (CARAFATE) 1 gram tablet Take 1 Tablet by mouth 4 times daily. 120 Tablet 3 ??? SYMBICORT 160-4.5 mcg/actuation HFA aerosol inhaler inhaler INHALE 2 PUFFS DIRECTED DAILY. 10.2 Each 1 ??? traZODone (DESYREL) 150 mg tablet Take 2 Tablets by mouth at bedtime. 180 Tablet 1 Allergies Allergies Allergen Reactions ??? Metoclopramide Nausea [...] of Systems: 10 point review of symptoms completed Pertinent positives: as above Pertinent negatives: as above OBJECTIVE Objective/Physical Exam: VS: Patient Vitals for the past 8 hrs: BP Heart Rate Resp Temp SpO2 O2 Flow Rate (L/min) O2 Device 02/11/22 0517 96/52 67 BPM 18 36.6 ??C (97.8 ??F) 97 % 2 l/min Nasal cannula Pain: No data found. Weight: Weight : (!) 102.5 kg (226 lb) Body mass index is 38.77 kg/m??. Exam: General:??Awake but very drowsy; becomes alert easily when stimulated; NAD HEENT: Normocephalic, atraumatic.??Dry oral mucosa without apparent lesions; no bleeding Eye: EOMI, clear conjunctivae, no scleral icterus Neck: Full ROM, no cervical LAD Heart: RRR, normal S1S2 w/o M/R/G appreciated Lungs: No respiratory distress. Clear to auscultation b/l w/o crackles or wheezing Abdomen:??NABS; non-distended, tender to light palpation in the epigastrium and LUQ. No rebound tenderness or involuntary guarding. No fluid wave appreciated. No signs of bleeding or trauma. Skin: No overt rashes or lesions on exposed skin Extremities: Moving spontaneously, warm with good distal pulses.??Symmetric 1+ LE edema below the knees Neuro:??A&Ox3,??face symmetric w/ CN grossly intact, normal speech,??moving extremities spontaneously against gravity. No asterixis. Psych:??Appropriate mood/affect Labs: CBC: Recent Labs 02/09/22 0822 02/10/22 1145 02/10/22 1533 02/10/22 1650 02/10/22221502/11/22 0554 WBC 3.23* 3.91* 3.57* 3.78* 3.95* 3.37* RBC 3.84* 4.37 3.96 3.83* 3.66* 3.77* HGB 10.7* 12.2 11.2* 10.6* 10.4* 10.4* HCT 32.7* 37.6 34.4* 32.6* 32.0* 33.2* MCV 85 86 87 85 87 88 MCH 27.9 27.9 28.3 27.7 28.4 27.6 MCHC 32.7 32.4 32.6 32.5 32.5 31.3* PLT 96* 100* 99* 91* 96* 85* NEUTROABS 2.45 3.17 -- -- -- -- BMP: Recent Labs 02/10/22 11402/11/22 0554 NA 139 137 K 4.7 4.5 CL 103 106 CO2 30 25 BUN 20 18 CREATININE 1.06* 0.93 CALCIUM 9.1 8.4* MG 1.9 -- LABALBU 4.2 3.3* Coags: Recent Labs 02/10/22 11402/10/22221502/11/22 0554 PROTIME 11.9 13.3* 12.9* INR 1.0 1.2* 1.1 PTT 32 32 30 LFT: Recent Labs 02/10/22 1145 02/11/22 0554 TBIL 0.6 <0.5 ALKPHOS 151* 87 AST 27 22 ALT 13 11 LIPASE 101 -- Cardiac Markers: Recent Labs 02/10/22 1145 TROPONINI <0.034 Urine Analysis: Recent Labs 02/10/22 1424 COLOR Yellow CLARITYU Clear GLUCOSEU Negative BILIRUBINUR Negative KETONES Negative LABSPEC 1.034 PHUR 8.0 PROTEINUA Negative UROBILINOGEN Normal NITRITE Negative LEUKESTER Negative WBCU 0 - 3 RBCU 11 - 50* BACTERIA None Seen LABCAST <=10 Other Studies: CT Angio Abdomen / Pelvis 02/10/22 IMPRESSION ?? 1. New from prior exam, there is [...] with portal hypertension. 5. Diverticulosis without diverticulitis. Lazaro Brock DO PGY-1, Neurology Pager: [phone] Available on Cortext 02/11/2022 9:32 Attestation statement: I saw and examined the patient with the resident/fellow. I have edited the note and I agree with the findings and plan of care documented in the resident's/fellow's note. Monse Mcdonald MD Waste Management Specialist, [facility] of Medicine at the [facility] Thombosis and Hemostasis Program, [facility] documented in this encounter ED Notes * Jacy Leos RN - 02/10/2022 1750 EDT Admitting team at bedside. * Jacy Leos RN - 02/10/2022 1740 EDT Report received from Ne HAWK. Assumed care. Spoke to MD Solorzano re: episodes of hypotension. Pt reports she is asymptomatic when hypotensive. IV fluids were given earlier in the day. Pt is A&Ox4. Skin PWD. Resp even and unlabored. * Ne Villarreal RN - 02/10/2022 1534 EDT MD notified of pt's worsening hypotension and nausea. * Ne Villarreal RN - 02/10/2022 1315 EDT Pt on continuous cardiac and SPO2 monitoring. Reporting increased pain, MD aware. * Ne Villarreal RN - 02/10/2022 [address] on monitor with RN. * Osei Alas RN - 02/10/2022 1124 EDT 12 Lead EKG Performed by OSEI ALAS RN and shown to Bobby Franklin MD. * Katherin Mora MD - 02/10/2022 1121 EDT This patient received an evaluation and medical screening exam for emergent medical conditions at the [facility] on 02/10/2022. This note was created and authored by KATHERIN MORA MD working under the supervision of Bobby Franklin MD. This documentation is recorded by Gracia De Leon acting as Scribe under the direction and presence of Bobby Franklin MD and KATHERIN MORA MD. Bobby Franklin MD and KATHERIN MORA MD: We personally performed the services recorded by the scribe in our presence. We confirm the scribe's documentation has been reviewed by us to accurately and completely record our work, treatment, procedures, and medical decision making. ED Attending's Supervisory Statement Rigoberto Owusu Joseph, MD, performed a history and exam of this patient and discussed the case with the resident. I have reviewed and edited this note, and the documentation is consistent with my findings, assessment and plan. I fully participated in the medical decision making. Rigoberto Owusu Joseph, MD, attest to the limited [id number]-[id number] ultrasound performed by the Resident. Isupervised and was present during the brown and critical portions of the procedure. EKG with normal sinus rhythm at 83 bpm, QTC 451, QT 382, ND 149. No STEMI. Medical Decision Making/ED Course A medical screening was performed. Tara Boothe is a 61 y.o. female with a history of GI bleed, portal venous thrombosis, anticoagulated on Eliquis, splenic vein thrombosis status post embolization, COPD, fatty liver disease, peptic ulcer disease who presents to the ED with left upper quadrant pain associated with syncope. Upon initial evaluation the patient appears uncomfortable. Vitals demonstrate hypertension. On exam, the patient is exquisitely tender in her upper abdomen. Differential diagnosis includes but is not limited to: Ruptured AAA, hemorrhagic splenic artery, splenic infarct, perforated peptic ulcer disease, pancreatitis. Further workup includes EKG, laboratory evaluation, CTA abdomen and pelvis. Two large bore IVs were immediately placed and the patient was given 1L IVF, 4 mg of Zofran, and 1mg dilaudid. EKG demonstrated sinus rhythm, 83 BPM, normal axis, normal intervals, flat T wave in aVL but no other ST or T wave abnormalities. Labs revealed: lactate normal at 1.2, not acidotic with pH 7.37 on VBG, hemoglobin 12.2. Electrolytes within normal limits. Creatinine mildly elevated at 1.06. Troponin within normal limits, making UT unlikely. BNP within normal limits. Lipase within normal limits, making pancreatitis unlikely. Mildly elevated alkaline phosphatase, other LFTs within normal limits. Patient is status post cholecystectomy, so this is likely a baseline elevation in alkaline phosphatase. Coags within normal limits. Received call from IR who states that the patient has a small amount of active arterial extravasation around her portal thrombus which will not necessitate operative intervention. They feel that the amount of extravasation is small enough that should not be causing hypotension. There were no other acute findings on the CT scan. 1319: Administered 1 mg IV Dilaudid. 1430: Paged Internal Medicine and hematology. 1440: Discussed the case with Internal Medicine, who requested that we discussed the case with hematology and continue to evaluate the patient's hemodynamic status. Repeat CBC at this time demonstrated a hemoglobin of 11.2, which is an appropriate drop following 1 L of IV fluids. 1557: Administered 4 mg IV Zofran. 1604: Discussed the case with Hematology. We reviewed her labs, and they requested we obtain D-dimer, fibrinogen, INR, and Anti-XA levels. At this time, as the patient is relatively stable and has a small amount of bleeding, did not feel that she required reversal with PCC. 1613: Reassessed the patient. Updated her to her imaging findings, and the plan for likely admission. The patient voiced her understanding and was agreeable to the plan for admission. She states she last took her Eliquis last night and did not take her morning medications today. Discussed the case again with internal medicine, the patient has remained stable with blood pressures in the 90s to 100 systolic. Discussed the case with the admitting hospitalist, who agreed to comeand evaluate the patient. She was well- appearing at the time of admission to the care of Dr. Qiu. Clinical Impression Final diagnoses: Portal vein thrombosis Disposition Upon departure from the Emergency Department, the patient's pain seemed to be 1 on a zero to ten scale. Condition at departure from the Emergency Department: Stable Disposition decisions were made weighing risks and benefits of hospitalization vs. outpatient treatment, the risk for further decompensation, and the patient???s wishes. Admitted. The patient required admission for further workup or management of their condition HPI Tara Boothe is a 61 y.o. 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 The patient reports she presented to the ED after a syncopal episode at Urgent Care, where she had presented due to abdominal pain. She reports similar abdominal pain in the past, but never this severe. History was provided by: Patient, EMS, medical record Patient's pertinent PMH, FH, SH were reviewed and updated PRN. ROS ROS A 10-point review of systems was performed. The patient answered negative to all questions with theexceptions of those explicitly detailed as positives in the HPI. Pertinent negatives are also explicitly stated. Physical Exam Vital Signs Temp: 36.1 ??C (97 ??F) Temp src: Oral Pulse: 82 Heart Rate: 74 BPM Resp: 15 SpO2: 95 % Pulse From Oximetry: 69 BPM BP: 100/65 BP MAP: 74 mm Hg BP Device: BP Machine BP Patient Position: Semi fowlers BP Cuff Location: Right arm O2 Device: None (Room air) Nursing notes and vital signs were reviewed. Constitutional: Uncomfortable-appearing, writhing in bed HEENT: Normocephalic, atraumatic. Moist oral mucosa without apparent lesions Eye: PERRL, EOMI, clear conjunctivae Neck: Full ROM, no cervical LAD Heart: RRR w/o MRG Lungs: No respiratory distress. Clear to auscultation b/l w/o W/R/R Abdomen: Exquisitely tender to palpation in upper abdomen with peritoneal signs and guarding. No pulsatile masses. Skin: No overt rashes or lesions on exposed skin Extremities: Moving spontaneously, warm. Equal pulses bilaterally. Neuro: CN grossly intact, normal speech, gait wnl, strength and sensation to light touch wnl in UE/LE b/l, no pronator drift, no dysmetria on FNF. Psych: Normal affect, no overt thought disorder Results Labs Reviewed URINE CHEMICAL (DIP) & SEDIMENT (MICRO) WITH REFLEX TO CULTURE - Abnormal Result Value Status Color UA Yellow Final Clarity UA Clear Final Glucose UA Negative Final Bilirubin UA Negative Final Ketones UA Negative Final Specific Parks, Urine 1.034 Final Blood UA 1+ (*) Final Urobilinogen UA Normal Final Nitrite UA Negative Final Leukocyte Esterase UA Negative Final Protein UA Negative Final pH, UA 8.0 Final Urine RBC Count, Auto 11 - 50 (*) Final Urine WBC Count, Auto 0 - 3 Final Urine Squamous Count, Auto None Seen Final Urine Hyaline Cast Count, Auto <=10 Final Urine Bacteria Count, Auto None Seen Final Narrative: NOTE: Reflex to Urine Culture test is not indicated based on Urine Sediment Analysis results. Urine Sediment Analysis results are unreliable on urines that are unrefrigerated for >2 hrs or refrigerated >8 hrs. COMPLETE BLOOD COUNT AND DIFFERENTIAL - Abnormal WBC 3.91 (*) Final RBC 4.37 Final Hemoglobin 12.2 Final HCT 37.6 Final MCV 86 Final MCH 27.9 Final MCHC 32.4 Final RDW-CV 17.2 (*) Final RDW-SD 54.5 (*) Final PLT 100 (*) Final MPV 9.4 (*) Final Neutrophils 81.0 Final Lymphocytes 8.7 Final Monocytes 8.4 Final Eosinophils 0.8 Final Basophils 0.8 Final Immature Grans 0.3 Final Absolute Neutrophils 3.17 Final Absolute Lymphocytes 0.34 (*) Final Absolute Monocytes 0.33 Final Absolute Eosinophils 0.03 Final Absolute Basophils 0.03 Final Absolute Immature Grans 0.01 Final Type of Differential: Auto Final COMPREHENSIVE METABOLIC PANEL (CMP) - Abnormal Sodium 139 Final Potassium 4.7 Final Chloride 103 Final CO2 Total 30 Final Glucose 98 Final BUN 20 Final Creatinine 1.06 (*) Final eGFR 57 (*) Final Total Protein 7.9 Final Albumin 4.2 Final Alkaline Phosphatase 151 (*) Final AST 27 Final ALT 13 Final Bilirubin, Total 0.6 Final Calcium 9.1 Final Albumin/Globulin Ratio 1.1 Final Anion Gap 6 Final BLOOD GASES, VENOUS - Abnormal pH, Venous 7.37 Final pCO2, Venous 47 Final pO2, Venous 27 (*) Final tCO2, Venous 28 Final Temperature 36.1 Final O2 Saturation, Venous 50 (*) Final Oxygen Therapy (FIO2) 0.0 Final Base Excess 0.90 Final COMPLETE BLOOD COUNT - Abnormal WBC 3.57 (*) Final RBC 3.96 Final Hemoglobin 11.2 (*) Final HCT 34.4 (*) Final MCV 87 Final MCH 28.3 Final MCHC 32.6 Final RDW-CV 17.1 (*) Final RDW-SD 54.3 (*) Final PLT 99 (*) Final MPV 10.0 Final D-DIMER - Abnormal D-Dimer 1,196 (*) Final Narrative: Cutoff value for the exclusion of DVT and PE: 230 ng/mL D-dimer units. Any use of the age-adjusted cutoff value is a post-analytic modification of this FDA- approved test and is considered off-labeluse of the test result. [facility] laboratory does not have literature to support the validity of an age-adjusted cutoff for our specific assay. LACTIC ACID WITH REFLEX - USE FOR INITIAL SEPSIS EVALUATION - Normal Lactic Acid 1.2 Final MAGNESIUM - Normal Magnesium 1.9 Final TROPONIN I - Normal Troponin I <0.034 Final Narrative: The results of this assay can be falsely lowered due to the consumption of Biotin. NT PRO BNP - Normal NT-pro BNP 33 Final PTT - Normal PTT 32 Final PROTIME - Normal I.N.R. 1.0 Final Pro Time 11.9 Final Narrative: Moderate Intensity Coumadin INR = 2.0-3.0 Adjustments in anticoagulant therapy dose should be based on the INR and NOT on the Protime. LIPASE - Normal Lipase 101 Final FIBRINOGEN - Normal Fibrinogen 204 Final HEPARIN LEVEL - LOW MOLECULAR WEIGHT HEPARIN - Normal Heparin Level - LMWH <0.04 Final COVID-19 TESTING COVID-19 rt-PCR Result Negative Final Performing Lab [place] [facility] Final COVID-19 TEST [facility] PCR BLOOD GASES, VENOUS pH, Venous 7.39 Final pCO2, Venous 43 Final pO2, Venous 34 Final tCO2, Venous 27 Final Temperature 36.5 Final O2 Saturation, Venous 66 Final Oxygen Therapy (FIO2) 2.0 Final Base Excess 0.60 Final COMPLETE BLOOD COUNT BLOOD GASES, VENOUS TYPE AND SCREEN ABO O Final Rh Factor Positive Final Antibody Screen Negative Final Specimen Expires: 02/13/2022 @ 23:59 Final PREPARE RED BLOOD CELLS PREPARE RED BLOOD CELLS An EKG was obtained and independently interpreted: sinus rhythm, 83 BPM, normal axis, normal intervals, flat T wave in aVL but no other ST or T wave abnormalities. Imaging obtained was reviewed and independently interpreted: CT angio abdomen/pelvis: New from prior exam, there is a small area of active arterial extravasation into the extensive portal venous thrombosis. The extent of portal venous thrombosis is unchanged. This small area of active extravasation would be unlikely to account for the patient's hypotension. 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 Prior partial splenic artery embolization with expected partial splenic infarction. There has been interval hypertrophy of the noninfarcted portion of the spleen. Cirrhotic configuration of the liver with enlargement of the portal veins and multiplesplenogastric varices, compatible with portal hypertension. Diverticulosis without diverticulitis. Laboratory results independently reviewed, significant for: lactate normal, not acidotic with pH 7/37 on VBG, hemoglobin 12.2 I performed a limited Aorta and Abdomen [id number] ultrasound. Please see my narrative and impression recorded in imaging results. I performed, reviewed, and independently interpreted the images. Images saved in [facility] and PACS. This study was supervised by a credentialed provider.Please see attestation in [facility] Procedures Procedures KATHERIN MORA MD 02/10/2022 16:59 Cosigned by Bobby Franklin MD at 02/11/2022 10:17 EDT documented in this encounter Miscellaneous Notes * Plan of Care - Lon Hurley RN - 02/12/2022 0248 EDT Problem: Daily Care Plan Goals Goal: Care Plan Documentation 02/12/2022 0249 by Lon Hurley RN Outcome: Ongoing 02/12/2022 024 by Lon Hurley RN Outcome: Ongoing Problem: Cardiac: Goal: Ability to maintain clinical measurements within defined limits will improve Outcome: Ongoing Data: Assumed care at 2300, aox3, pain 7/10 LUQ, continent, LR @ 75/hr, CGA OOB, tele NSR, RA w/ 2 L NC @HS if desat, reg diet. Action: oxy prn 5 mg for pain, assisted to bathroom prn, provided snacks and drinks, warm back to low back for pain, assessed vs. Response: pain controlled. HD stable, BP soft 100s. Will continue to assess. LON HURLEY RN 02/12/2022 2:49 * Plan of Care - Severo Robertson RN - 02/11/2022 1839 EDT Problem: High Fall Risk: Goal: Patient will Remain Free of Falls due to Dizziness/Vertigo Outcome: Ongoing Problem: Daily Care Plan Goals Goal: Care Plan Documentation Outcome: Ongoing Flowsheets Taken 02/11/2022 1824 Goal This Shift: patient will report tolerable pain level Taken 02/11/2022 0720 Area of Focus: Pain/ Comfort Data: patient alert and orientedx3. Drowsy at times but wakes to voice and states she just feels tired. BP can run soft at times but was within parameters this shift. RR even and unlabored on room air when awake. HUEY req oxygen when sleeping. C/o LUQ abd pain 8/10- prn pain medication given with good effect. Action: hourly rounding. Medications given per jan. IV fluids initiated at slow rate. Orthostatics obtained (see prev note) seem to be negative at this time. Patient denies lightheadedness/dizziness and was able to ambulate in halls with staff this shift. Prn oxy given x1 this shift. Response: Tolerated ambulation well. Good po intake of meals and fluids. Calling appropriately. Resting intermittently throughout the shift. Safety measures in place SEVERO ROBERTSON RN 02/11/2022 18:40 * Plan of Care - Severo Robertson RN - 02/11/2022 1211 EDT 02/11/22 1157 Lying Orthostatics Lying BP 105/56 Lying Pulse 74 Sitting Orthostatics Sitting BP 104/59 Sitting Pulse 72 Standing Orthostatics Standing BP 102/59 Standing Pulse 80 walked 50 feet: BP 112/55 HR 71 Denies sob/lightheaded/dizziness tolerated walking well * Plan of Care - Helena Coffman - 02/11/2022 1158 EDT Initial Case Management/Social Work Assessment and Discharge Plan/Readmission Risk Assessment REASON FOR ADMISSION: Portal vein thrombosis PMHx significant for??decompensated cirrhosis 2/2 NAFLD c/b??portal venous thrombosis (anticoagulated??on Eliquis) and 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 Presentation most likely 2/2 orthostatichypotension due to overdiuresis and acute on chronic pain exacerbation. Plan to titrate diuretics and pursue outpatient sleep study for CPAP. Patient understands reason for admission: Yes PATIENT INFO VERIFIED: PCP, Contact Info, Address Type of housing - single family home Who does the patient live with? Roommates Daily Does the patient have access to their own bedroom/bathroom/kitchen - shared with roommates LIVING ARRANGEMENTS AND ACCESSIBILITY ISSUES: Living Arrangements: Private residence Levels: 1 Stairs to enter: 2 Handicap access: Railings into home Bathroom located on bedroom level?: Yes What in home social supports are available to the patient? Friends / neighbors Is 13/06 care available? No ADVANCED DIRECTIVES, POA &/or COLST IN PLACE: Healthcare Directive: Yes, patient has advance directive for healthcare treatment Type of Healthcare Directive: Durable power of trade mark attorney for health care Copy in Chart: Yes, previous copy on file @ [facility] DIRECTIVES FOR FINANCES: TRANSPORTATION: Transportation: Family Transportation Additional Details: friends Patient expects to be discharged to: Home CULTURAL, RESTORATIONISM and/or LANGUAGE factors affecting health care/discharge planning: Spiritual/Cultural Requests: None Insurance Information: Medical Insurance: Yes Type of insurance: Medicare, Medicaid Medicare type: A, B Medicaid Type: Community Referred to patient financial services: No Nutrition: DISCHARGE RISK ASSESSMENT: Lives at home with limited or no community support;Diagnosis of COPD;Polypharmacy, > 7 medications Total # selected above: (P) Score of 2 - 4: This patient [...] 8 Patient expects to be discharged to: Home SBIRT: SASQ (Single Alcohol Screening Question) How [...] Activities patient requires assistance: None Assistive Devices: Grab bars, Shower chair COMMUNITY RESOURCES/SUPPORTS: Primary Care Provider: Emigdio Veronica PCP Verified: Specialists: (Hematology) Type of Home Health Services: None DME Provider: Pharmacy: [facility]/pharmacy #[id number] - [place], [place] - [address] [place] [address] Home Health: Other: POST HOSPITAL TRANSITION PLAN: Pt presented to the ED??following a??syncopal episode at her PCP's office??and increasing??LUQ pain. Hypotension likely due to decreased volume statis, under- treated HUEY (not on CPAP), sedating meds.Sleep study s/p discharge recommended. PMHx portal vein thrombosis- Heme consulting. Met with pt at bedside to complete CM assessment: - She lives with her roommates Celestino and Federica in a one story, private home in [facility] (2 steps to enter plus railing). - Qualifies for SSDI. 3 Squares valorie intact. 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 O2 provider is [facility] [employer]. - Pt's son González lives in [place] and is available to assist as needed. González or Federica will pick pt up when cleared for discharge. - Pt has no concerns with discharging home. Discharge pending clinical course. Helena Coffman RN, MORTGAGE SERVICING SPECIALIST, [facility] Pager # [phone] HELENA COFFMAN 02/11/2022 11:58 * Plan of Care - Darryl Velarde RN - 02/11/2022 0252 EDT Problem: Daily Care Plan Goals Goal: Care Plan Documentation Outcome: Ongoing Flowsheets (Taken 02/10/20222019) Area of Focus: Pain/ Comfort Goal This Shift: Control pain this shift. Data: Assumed care at 1900. A&0X3. Vitals stable on 2L NC. SPO2 >95%. Reported 7/8 LUQ pain.No complain of N/V and difficulty breathing. Eating and drinking adequately. Continent. CGA to bathroom. On tele, sinus rhythm. Action: Meds per eMAR. PRN oxycodone and ramelteon at bedtime. Snacks and drinks to room on pt request. Monitored vitals and tele. Call hines within reach. Calls appropriately. Response: Pt able to make needs known. No further complain of pain. Sleeping comfortably in bed at this time. DARRYL VELARDE RN 02/11/2022 2:52 * Plan of Care - Monse Mcdonald MD - 02/10/2022 1611 EDT Hematology Plan of Care: 61 y/o F with history of portal vein thrombosis (dx 2017) on apixaban 2.5 mg po BID presented with acute abdominal pain found to have a small area of active arterial extravasation into the extensive portal venous thrombosis. Per ED provider, IR felt no role for IR intervention and small bleed should not contribute to patient's hypotension (Bps 90s/50s, but not tachycardic). Patient's last dose ofapixaban was reportedly in AM of 02/10/2022 Recommendations: - STOP apixaban - Check anti-Xa (heparin) level once. - Trend CBC + DIC labs (PT, PTT, fibrinogen, d dimer) [id number] - Do NOT recommend PCC at this time given last dose of apixaban was in AM of 02/10 (although pt has CKD and may have delayed clearance) and bleed is small (Hb slight decrease, but received IV fluids).Would consider PCC if clinical decompensation. -Please page the hematology consult fellow buttonhole machine operator if patient's clinical picture changes. - Formal heme consult on 02/11 Monse Mcdonald MD Waste Management Specialist, [facility] of Medicine at the [facility] Thombosis and Hemostasis Program, [place] [facility] Please feel free to contact my office with any questions at [phone]. documented in this encounter Plan of Treatment Upcoming Encounters Date Type Department Care Team (Late st Contact Info) Description 01/04/2025 13:00 EST Office Visit [facility] Ophthalmology - [address] [phone] Gagandeep Rome MD [address] [place] [address], [facility] [address] [place] [phone] 02/11/2025 13:30 EDT Telemedicine [facility] Hematology & Oncology - [address] [id number] Dana Padilla MD [address] [place] [address], [facility] [address] [place] [phone] Pending Results Name Type Priority Associated Diagnoses Date /Time PREPARE RED BLOOD CELLS Blood Bank STAT 0 02/10/2022 15:39 EDT PREPARE RED BLOOD CELLS Blood Bank Routine 0 02/10/2022 15:39 EDT documented as of this encounter Procedures Procedure Name Priority Date/Time Associated Diagnosis Comments ECG REPORT - SCANNED 02/22/2022 6:39 EDT ECG REPORT - SCANNED 02/15/2022 14:59 EDT PTT Routine 02/12/2022 7:16 EDT PROTIME Routine 02/12/2022 7:16 EDT FIBRINOGEN Routine 02/12/2022 7:16 EDT D-DIMER Routine 02/12/2022 7:16 EDT COMPLETE BLOOD COUNT AND DIFFERENTIAL Routine 02/12/2022 7:16 EDT COMPREHENSIVE METABOLIC PANEL (CMP) Routine 02/12/2022 7:16 EDT SPEP WITH IMMUNOTYPING PERFORMABLE Add-On 02/11/2022 5:54 EDT TRANSFERRIN SATURATION Add-On 02/11/2022 5:54 EDT PROFILE IRON STUDIES (INCLUDES IRON, IBC, AND FERRITIN) Add-On 02/11/2022 5:54 EDT PTT Routine 02/11/2022 5:54 EDT PROTIME Routine 02/11/2022 5:54 EDT FIBRINOGEN Routine 02/11/2022 5:54 EDT D-DIMER Routine 02/11/2022 5:54 EDT COMPLETE BLOOD COUNT STAT 02/11/2022 5:54 EDT SPEP WITH IMMUNOTYPING Add-On 02/11/2022 5:54 EDT PROTEIN, TOTAL Add-On 02/11/2022 5:54 EDT FOLATE Add-On 02/11/2022 5:54 EDT FERRITIN Add-On 02/11/2022 5:54 EDT VITAMIN B12 Add-On 02/11/2022 5:54 EDT COMPREHENSIVE METABOLIC PANEL (CMP) Routine 02/11/2022 5:54 EDT PTT Routine 02/10/2022 22:16 EDT PROTIME Routine 02/10/2022 22:16 EDT FIBRINOGEN Routine 02/10/2022 22:16 EDT D-DIMER Routine 02/10/2022 22:16 EDT COMPLETE BLOOD COUNT STAT 02/10/2022 22:16 EDT BLOOD GASES, VENOUS STAT 02/10/2022 1 6:50 EDT COMPLETE BLOOD COUNT Routine 02/10/2022 16:50 EDT HEPARIN LEVEL - LOW MOLECULAR WEIGHT HEPARIN STAT 02/10/2022 16:22 EDT FIBRINOGEN STAT 02/10/2022 16:22 EDT D-DIMER STAT 02/10/2022 16:22 EDT BLOOD GASES, VENOUS STAT 02/10/2022 1 5:33 EDT COMPLETE BLOOD COUNT Routine 02/10/2022 15:33 EDT URINE CHEMICAL (DIP) & SEDIMENT (MICRO) WITH REFLEX TO CULTURE STAT 02/10/2022 14:[address] ANGIO ABDOMEN PELVIS STAT 02/10/2022 12:34 EDT ZZCOVID-19 TEST [facility] PCR Today 02/10/2022 11:53 EDT COVID-19 TESTING Routine 02/10/2022 11:5 3 EDT BLOOD GASES, VENOUS STAT 02/10/2022 1 1:48 EDT LACTIC ACID WITH REFLEX - USE FOR INITIAL SEPSIS EVALUATION STAT 02/10/2022 11:45 EDT TROPONIN I STAT 02/10/2022 11:45 EDT PTT STAT 02/10/2022 11:45 EDT PROTIME STAT 02/10/2022 11:45 EDT COMPLETE BLOOD COUNT AND DIFFERENTIAL STAT 02/10/2022 11:45 EDT TYPE AND SCREEN STAT 02/10/2022 11:45 EDT NT PRO BNP STAT 02/10/2022 11:45 EDT MAGNESIUM STAT 02/10/2022 11:45 EDT LIPASE STAT Add-on 02/10/2022 11:45 EDT COMPREHENSIVE METABOLIC PANEL (CMP) STAT 02/10/2022 11:45 EDT POCT US ED ABDOMEN 02/10/2022 11 :34 EDT EKG 12-LEAD STAT 02/10/2022 11:21 EDT documented in this encounter Results * ECG REPORT - SCANNED (02/22/2022 6:39 EDT) 02/22/2022 6:39 EDT us Scan 2 Medical Nurse PROCEDURE/MINOR SURGICAL OR DERABLES Final Result * ECG REPORT - SCANNED (02/15/2022 14:59 EDT) 02/15/2022 14:5 9 EDT us Scan 2 Medical Nurse PROCEDURE/MINOR SURGICAL OR DERABLES Final Result * (ABNORMAL) BASIC METABOLIC PANEL (BMP) (02/15/2022 14:52 EDT) Sodium 135(L) 136 - 145 mmol/L 02/15/2022 16:03 EDT [facility] Potassium 4.0 3.5 - 5.0 mmol/L 02/15/2022 16:03 [facility] Chloride 106 96 - 110 mmol/L 02/15/2022 16:03 [facility] CO2 Total 23 22 - 32 mmol/L 02/15/2022 16:03 [facility] Anion Gap 6 5 - 14 02/15/2022 16:03 [facility] Glucose 141(H) 70 - 100 mg/dL 02/15/2022 16:03 [facility] Calcium 8.2(L) 8.5 - 10.5 mg/dL 02/15/2022 16:03 [facility] BUN 16 10 - 26 mg/dL 02/15/2022 16:03 [facility] Creatinine 0.80 0.52 - 1.04 mg/dL 02/15/2022 16:03 [facility] eGFR 80 >60 mL/min/1.73 m2 02/15/2022 16:03 [facility] Blood VENOUS BLOOD / Unknown Venipuncture / Unknown 02/15/2022 14:52 EDT 02/15/2022 14:52 EDT us Suhail Gaspar MD CHEMISTRY & BLOOD GAS OR DERABLES Final Result [facility] [address] [place] [address] * (ABNORMAL) COMPLETE BLOOD COUNT AND DIFFERENTIAL (02/12/2022 7:16 EDT) WBC 3.83(L) 4.00 - 12.40 K/cmm 02/12/2022 7:44 T [facility] RBC 3.77(L) 3.86 - 5.04 M/cmm 02/12/2022 7:44 [facility] Hemoglobin 10.7(L) 11.6 - 15.2 gm/dL 02/12/2022 7:44 [facility] HCT 32.4(L) 34.9 - 44.4 % 02/12/2022 7:44 [facility] MCV 86 81 - 98 fl 02/12/2022 7:44 [facility] MCH 28.4 26.7 - 33.3 pg 02/12/2022 7:44 [facility] MCHC 33.0 32.1 - 35.9 gm/dL 02/12/2022 7:44 [facility] RDW-CV 17.0(H) <14.7 % 02/12/2022 7:44 [facility] RDW-SD 53.4(H) <50.4 fl 02/12/2022 7:44 [facility] PLT 94(L) 141 - 377 K/cmm 02/12/2022 7:44 [facility] MPV 10.1 9.5 - 12.7 fl 02/12/2022 7:44 [facility] % Neutrophils 74.6 % 02/12/2022 7:44 [facility] % Lymphocytes 7.8 % 02/12/2022 7:44 [facility] % Monocytes 13.6 % 02/12/2022 7:44 [facility] % Eosinophils 2.9 % 02/12/2022 7:44 [facility] % Basophils 0.8 % 02/12/2022 7:44 [facility] % Immature Grans 0.3 % 02/13/20 7:44 [facility] Absolute Neutrophils 2.86 2.20 - 8.85 K/cmm 02/12/2022 7:44 [facility] Absolute Lymphocytes 0.30(L) 1.09 - 3.30 K/cmm 02/12/2022 7:44 [facility] Absolute Monocytes 0.52 0.10 - 0.80 K/cmm 02/12/2022 7:44 [facility] Absolute Eosinophils 0.11 0.03 - 0.61 K/cmm 02/12/2022 7:44 [facility] ABS Basophils 0.03 0.01 - 0.11 K/cmm 02/12/2022 7:44 EDT [facility] Absolute Immature Grans 0.01 0.00 - 0.06 K/cmm 02/12/2022 7:44 EDT [facility] Type of Differential: Auto 02/12/2022 7:44 EDT [facility] Blood VENOUS BLOOD / Unknown Venipuncture / Unknown 02/12/2022 7:16 EDT 02/12/2022 7:24 EDT us Oni Granger MD PACKAGES & DNA PROBE ORDERABLE S Final Result Performing Organization Address City/[facility]/ZIP Co de Phone Number [facility] [address] [place] [address] * PTT (02/12/2022 7:16 EDT) PTT 32 26 - 37 secs 02/12/2022 7:52 EDT [facility] Blood VENOUS BLOOD / Unknown Venipuncture / Unknown 02/12/2022 7:16 EDT 02/12/2022 7:24 EDT us Kip Dugan MD HEMATOLOGY & PF4 ORDERABLES Pricila l Result Performing Organization Address City/[facility]/ZIP Co de Phone Number [facility] [address] [place] [address] * PROTIME (02/12/2022 7:16 EDT) I.N.R. 1.1 0.9 - 1.1 Ratio 02/12/2022 7:52 EDT [facility] Pro Time 12.6 10.4 - 12.6 secs 02/12/2022 7:52 EDT [facility] Blood VENOUS BLOOD / Unknown Venipuncture / Unknown 02/12/2022 7:16 EDT 02/12/2022 7:24 EDT Narrative [facility] - 02/12/2022 7:52 EDT Moderate Intensity Coumadin INR = 2.0-3.0 Adjustments in anticoagulant therapy dose should be based on the INR and NOT on the Protime. us Kip Dugan MD HEMATOLOGY & PF4 ORDERABLES Pricila l Result Performing Organization Address City/[facility]/ZIP Co de Phone Number [facility] [address] [place] [address] * FIBRINOGEN (02/12/2022 7:16 EDT) Fibrinogen 184 171 - 384 mg/dL 02/12/2022 7:50 EDT [facility] Blood VENOUS BLOOD / Unknown Venipuncture / Unknown 02/12/2022 7:16 EDT 02/12/2022 7:24 EDT us Kip Dugan MD HEMATOLOGY & PF4 ORDERABLES Pricila l Result Performing Organization Address [facility] de Phone Number [facility] [address] [place] [address] * (ABNORMAL) D-DIMER (02/12/2022 7:16 EDT) D-Dimer 1,538(H) <=230 ng/mL DDU 02/12/2022 8:00 EDT [facility] Blood VENOUS BLOOD / Unknown Venipuncture / Unknown 02/12/2022 7:16 EDT 02/12/2022 7:24 EDT Narrative [facility] - 02/12/2022 8:00 EDT Cutoff value for the exclusion of DVT and PE: 230 ng/mL D-dimer units. Any use of the age-adjusted cutoff value is a post-analytic modification of this FDA-approved test and is considered off-label use of the test result. [facility] laboratory does not have literature to support the validity of an age-adjusted cutoff for our specific assay. us Kip Dugan MD HEMATOLOGY & PF4 ORDERABLES Pricila l Result Performing Organization Address [facility] Co de Phone Number [facility] [address] [place] [address] * (ABNORMAL) COMPREHENSIVE METABOLIC PANEL (CMP) (02/12/2022 7:16 EDT) Sodium 139 136 - 145 mmol/L 02/12/2022 8:13 [facility] Potassium 4.5 3.5 - 5.0 mmol/L 02/12/2022 8:13 [facility] Chloride 107 96 - 110 mmol/L 02/12/2022 8:13 [facility] CO2 Total 26 22 - 32 mmol/L 02/12/2022 8:13 [facility] Glucose 117(H) 70 - 100 mg/dL 02/12/2022 8:13 [facility] BUN 17 10 - 26 mg/dL 02/12/2022 8:13 [facility] Creatinine 0.89 0.52 - 1.04 mg/dL 02/12/2022 8:13 [facility] eGFR 70 >60 mL/min/1.7 3m2 02/12/2022 8:13 [facility] Total Protein 6.3 6.3 - 8.2 g/dL 02/12/2022 8:13 [facility] Albumin 3.4 3.4 - 4.9 g/dL 02/12/2022 8:13 [facility] Alkaline Phosphatase 120 38 - 126 U/L 02/12/2022 8:13 [facility] AST 22 15 - 46 U/L 02/12/2022 8:13 [facility] ALT 12 <35 U/L 02/12/2022 8:13 [facility] Bilirubin, Total 0.5 <1.4 mg/dL 02/13/20 8:13 [facility] Calcium 8.4(L) 8.5 - 10.5 mg/dL 02/12/2022 8:13 [facility] Albumin/Globulin Ratio 1.2 1.0 - 2.5 02/12/2022 8:13 [facility] Anion Gap 6 5 - 14 02/12/2022 8:13 EDT [facility] Blood VENOUS BLOOD / Unknown Venipuncture / Unknown 02/12/2022 7:16 EDT 02/12/2022 7:43 EDT us Suhail Gaspar MD CHEMISTRY & BLOOD GAS OR DERABLES Final Result [facility] [address] [place] [address] * (ABNORMAL) SPEP WITH IMMUNOTYPING PERFORMABLE (02/11/2022 5:54 EDT) Albumin % 53.5(L) 55.8 - 66.1 % 02/12/2022 14:50 [facility] Alpha-1 % 3.6 2.9 - 4.9 % 02/12/2022 14:50 [facility] Alpha-2 % 8.8 7.1 - 11.8 % 02/12/2022 14:50 [facility] Beta % 14.4(H) 8.4 - 13.1 % 02/12/2022 14:50 [facility] Gamma % 19.7(H) 11.1 - 18.8 % 02/12/2022 14:50 [facility] SPEP Comment No apparent monoclonal protein seen on serum electrophoresis 02/12/2022 14:50 [facility] Comment:See scanned/suppleme ntary report. Immunotyping , Serum Current Interpretation: Negative for monoclonal immunoglobulins.Re viewed by: Doyle Erickson MD 02/12/2022 1412 02/12/2022 14:50 [facility] Total Protein 6.2(L) 6.3 - 8.2 g/dL 02/12/2022 14:50 [facility] Blood VENOUS BLOOD / Unknown Venipuncture / Unknown 02/11/2022 5:54 EDT 02/11/2022 6:04 EDT us Ebenezer Qiu MD CHEMISTRY & BLOOD GAS ORD ERABLES Final Result [facility] [address] [place] [address] * PROTEIN, TOTAL (02/11/2022 5:54 EDT) Blood VENOUS BLOOD / Unknown Venipuncture / Unknown 02/11/2022 5:54 EDT 02/11/2022 6:04 EDT Ebenezer Qiu MD CHEMISTRY & BLOOD GAS ORD ERABLES Final Result [facility] [address] [place] [address] * FERRITIN (02/11/2022 5:54 EDT) Ferritin 49 10 - 291 ng/mL 02/11/2022 15:31 EDT [facility] Blood VENOUS BLOOD / Unknown Venipuncture / Unknown 02/11/2022 5:54 EDT 02/11/2022 6:04 EDT Ebenezer Qiu MD CHEMISTRY & BLOOD GAS ORD ERABLES Final Result Performing Organization Address [facility] Co de Phone Number [facility] [address] [place] [address] * TRANSFERRIN SATURATION (02/11/2022 5:54 EDT) Iron 92 37 - 170 ??g/dL 02/11/2022 13:41 EDT [facility] Iron Binding Capacity 428 265 - 497 ??g/dL 02/11/2022 13:41 EDT [facility] Transferrin Saturation 21 15 - 45 % 02/11/2022 13:41 EDT [facility] Blood VENOUS BLOOD / Unknown Venipuncture / Unknown 02/11/2022 5:54 EDT 02/11/2022 6:04 EDT Ebenezer Qiu MD CHEMISTRY & BLOOD GAS ORD ERABLES Final Result [facility] [address] [place] [address] * FOLATE (02/11/2022 5:54 EDT) [facility] Folate 7.5 See Note ng/mL 02/11/2022 15:33 EDT [facility] Comment: Reference Ranges for Folate: Deficient: ?< 3.4 ng/mL Indeterminate: ??3.4 - 5.4 ng/mL Normal: ? > 5.4 ng/mL The results of this assay can be falsely elevated due to the consumption of Biotin. Blood VENOUS BLOOD / Unknown Venipuncture / Unknown 02/11/2022 5:54 EDT 02/11/2022 6:04 EDT Ebenezer Qiu MD CHEMISTRY & BLOOD GAS ORD ERABLES Final Result Performing Organization Address [facility]/ZIP Co de Phone Number [facility] [address] [place] [address] * VITAMIN B12 (02/11/2022 5:54 EDT) [facility] Vitamin B12 309 211 - 911 pg/mL 02/11/2022 15:34 EDT [facility] Blood VENOUS BLOOD / Unknown Venipuncture / Unknown 02/11/2022 5:54 EDT 02/11/2022 6:04 EDT Ebenezer Qiu MD CHEMISTRY & BLOOD GAS ORD ERABLES Final Result [facility] [address] [place] [address] * (ABNORMAL) COMPLETE BLOOD COUNT (02/11/2022 5:54 EDT) [facility] WBC 3.37(L) 4.00 - 12.40 K/cmm 02/11/2022 6:16 EDT [facility] RBC 3.77(L) 3.86 - 5.04 M/cmm 02/11/2022 6:16 [facility] Hemoglobin 10.4(L) 11.6 - 15.2 gm/dL 02/11/2022 6:16 [facility] HCT 33.2(L) 34.9 - 44.4 % 02/11/2022 6:16 [facility] MCV 88 81 - 98 fl 02/11/2022 6:16 [facility] MCH 27.6 26.7 - 33.3 pg 02/11/2022 6:16 [facility] MCHC 31.3(L) 32.1 - 35.9 gm/dL 02/11/2022 6:16 [facility] RDW-CV 17.2(H) <14.7 % 02/11/2022 6:16 [facility] RDW-SD 55.3(H) <50.4 fl 02/11/2022 6:16 [facility] PLT 85(L) 141 - 377 K/cmm 02/11/2022 6:16 [facility] MPV 9.3(L) 9.5 - 12.7 fl 02/11/2022 6:16 [facility] Blood VENOUS BLOOD / Unknown Venipuncture / Unknown 02/11/2022 5:54 EDT 02/11/2022 6:03 EDT us Katherin Mora MD HEMATOLOGY & PF4 ORDERABLES Pricila l Result [facility] [address] [place] [address] * FIBRINOGEN (02/11/2022 5:54 EDT) [facility] Fibrinogen 190 171 - 384 mg/dL 02/11/2022 6:20 EDT [facility] Blood VENOUS BLOOD / Unknown Venipuncture / Unknown 02/11/2022 5:54 EDT 02/11/2022 6:03 EDT us Suhail Gaspar MD HEMATOLOGY & PF4 ORDERAB LES Final Result [facility] [address] [place] [id number] * (ABNORMAL) D-DIMER (02/11/2022 5:54 EDT) [facility] D-Dimer 1,994(H) <=230 ng/mL DDU 02/11/2022 6:22 EDT [facility] Blood VENOUS BLOOD / Unknown Venipuncture / Unknown 02/11/2022 5:54 EDT 02/11/2022 6:03 EDT Narrative [facility] - 02/11/2022 6:22 EDT Cutoff value for the exclusion of DVT and PE: 230 ng/mL D-dimer units. Any use of the age-adjusted cutoff value is a post-analytic modification of this FDA-approved test and is considered off-label use of the test result. [facility] laboratory does not have literature to support the validity of an age-adjusted cutoff for our specific assay. Suhail Gaspar MD HEMATOLOGY & PF4 ORDERAB LES Final Result Performing Organization Address City/[facility]/ZIP Co de Phone Number [facility] [address] [place] [id number] * PTT (02/11/2022 5:54 EDT) [facility] PTT 30 26 - 37 secs 02/11/2022 6:21 EDT [facility] Blood VENOUS BLOOD / Unknown Venipuncture / Unknown 02/11/2022 5:54 EDT 02/11/2022 6:03 EDT Suhail Gaspar MD HEMATOLOGY & PF4 ORDERAB LES Final Result Performing Organization Address City/[facility]/ZIP Co de Phone Number [facility] [address] [place] [phone] * (ABNORMAL) PROTIME (02/11/2022 5:54 EDT) I.N.R. 1.1 0.9 - 1.1 Ratio 02/11/2022 6:21 [facility] Pro Time 12.9(H) 10.4 - 12.6 secs 02/11/2022 6:21 [facility] Blood VENOUS BLOOD / Unknown Venipuncture / Unknown 02/11/2022 5:54 EDT 02/11/2022 6:03 EDT Narrative [facility] - 02/11/2022 6:21 EDT Moderate Intensity Coumadin INR = 2.0-3.0 Adjustments in anticoagulant therapy dose should be based on the INR and NOT on the Protime. us Suhail Gaspar MD HEMATOLOGY & PF4 ORDERAB LES Final Result [facility] [address] [place] [address] * (ABNORMAL) COMPREHENSIVE METABOLIC PANEL (CMP) (02/11/2022 5:54 EDT) Sodium 137 136 - 145 mmol/L 02/11/2022 6:40 [facility] Potassium 4.5 3.5 - 5.0 mmol/L 02/11/2022 6:40 [facility] Chloride 106 96 - 110 mmol/L 02/11/2022 6:40 [facility] CO2 Total 25 22 - 32 mmol/L 02/11/2022 6:40 [facility] Glucose 111(H) 70 - 100 mg/dL 02/11/2022 6:40 [facility] BUN 18 10 - 26 mg/dL 02/11/2022 6:40 [facility] Creatinine 0.93 0.52 - 1.04 mg/dL 02/11/2022 6:40 [facility] eGFR 67 >60 mL/min/1.7 3m2 02/11/2022 6:40 [facility] Total Protein 6.2(L) 6.3 - 8.2 g/dL 02/11/2022 6:40 [facility] Albumin 3.3(L) 3.4 - 4.9 g/dL 02/11/2022 6:40 T [facility] Alkaline Phosphatase 87 38 - 126 U/L 02/11/2022 6:40 T [facility] AST 22 15 - 46 U/L 02/11/2022 6:40 T [facility] ALT 11 <35 U/L 02/11/2022 6:40 T [facility] Bilirubin, Total <0.5 <1.4 mg/dL 02/12/20 6:40 T [facility] Calcium 8.4(L) 8.5 - 10.5 mg/dL 02/11/2022 6:40 T [facility] Albumin/Globulin Ratio 1.1 1.0 - 2.5 02/11/2022 6:40 T [facility] Anion Gap 6 5 - 14 02/11/2022 6:40 EDT [facility] Blood VENOUS BLOOD / Unknown Venipuncture / Unknown 02/11/2022 5:54 EDT 02/11/2022 6:04 EDT us Suhail Gaspar MD CHEMISTRY & BLOOD GAS OR DERABLES Final Result Performing Organization Address City/[facility]/ZIP Co de Phone Number [facility] [address] [place] [address] * FIBRINOGEN (02/10/2022 22:16 EDT) Fibrinogen 188 171 - 384 mg/dL 02/10/2022 22:40 EDT [facility] Blood VENOUS BLOOD / Unknown Venipuncture / Unknown 02/10/2022 22:16 EDT 02/10/2022 22:20 EDT us Suhail Gaspar MD HEMATOLOGY & PF4 ORDERAB LES Final Result Performing Organization Address City/[facility]/ZIP Co de Phone Number [facility] [address] [place] [address] * (ABNORMAL) D-DIMER (02/10/2022 22:16 EDT) [facility] D-Dimer 1,940(H) <=230 ng/mL DDU 02/10/2022 22:42 EDT [facility] Blood VENOUS BLOOD / Unknown Venipuncture / Unknown 02/10/2022 22:16 EDT 02/10/2022 22:20 EDT Narrative [facility] - 02/10/2022 22:42 EDT Cutoff value for the exclusion of DVT and PE: 230 ng/mL D-dimer units. Any use of the age-adjusted cutoff value is a post-analytic modification of this FDA-approved test and is considered off-label use of the test result. [facility] laboratory does not have literature to support the validity of an age-adjusted cutoff for our specific assay. Suhail Gaspar MD HEMATOLOGY & PF4 ORDERAB LES Final Result Performing Organization Address City/[facility]/ZIP Co de Phone Number [facility] [address] [place] [address] * PTT (02/10/2022 22:16 EDT) [facility] PTT 32 26 - 37 secs 02/10/2022 22:42 EDT [facility] Blood VENOUS BLOOD / Unknown Venipuncture / Unknown 02/10/2022 22:16 EDT 02/10/2022 22:20 EDT us Suhail Gaspar MD HEMATOLOGY & PF4 ORDERAB LES Final Result [facility] [address] [place] [address] * (ABNORMAL) PROTIME (02/10/2022 22:16 EDT) [facility] I.N.R. 1.2(H) 0.9 - 1.1 Ratio 02/10/2022 22:42 EDT [facility] Pro Time 13.3(H) 10.4 - 12.6 secs 02/10[facility]2022 [facility] Blood VENOUS BLOOD / Unknown Venipuncture / Unknown 02/10/2022 22:16 EDT 02/10/2022 22:20 EDT Narrative [facility] - 02/10/2022 22:42 EDT Moderate Intensity Coumadin INR = 2.0-3.0 Adjustments in anticoagulant therapy dose should be based on the INR and NOT on the Protime. us Suhail Gaspar MD HEMATOLOGY & PF4 ORDERAB LES Final Result [facility] [address] [place] [address] * (ABNORMAL) COMPLETE BLOOD COUNT (02/10/2022 22:16 EDT) WBC 3.95(L) 4.00 - 12.40 K/cmm 02/10/2022 22:29 [facility] RBC 3.66(L) 3.86 - 5.04 M/cmm 02/10/2022 22:29 [facility] Hemoglobin 10.4(L) 11.6 - 15.2 gm/dL 02/10/2022 22:29 [facility] HCT 32.0(L) 34.9 - 44.4 % 02/10/2022 22:29 [facility] MCV 87 81 - 98 fl 02/10/2022 22:29 [facility] MCH 28.4 26.7 - 33.3 pg 02/10/2022 22:29 [facility] MCHC 32.5 32.1 - 35.9 gm/dL 02/10/2022 22:29 [facility] RDW-CV 17.2(H) <14.7 % 02/10/2022 22:29 [facility] RDW-SD 55.6(H) <50.4 fl 02/10/2022 22:29 [facility] PLT 96(L) 141 - 377 K/cmm 02/10/2022 22:29 EDT [facility] MPV 9.6 9.5 - 12.7 fl 02/10/2022 22:29 EDT [facility] Blood VENOUS BLOOD / Unknown Venipuncture / Unknown 02/10/2022 22:16 EDT 02/10/2022 22:20 EDT us Katherin Mora MD HEMATOLOGY & PF4 ORDERABLES Pricila l Result Performing Organization Address [facility] Co de Phone Number [facility] [address] [place] [address] * BLOOD GASES, VENOUS (02/10/2022 16:50 EDT) pH, Venous 7.41 7.31 - 7.41 02/10/2022 17:00 EDT [facility] pCO2, Venous 44 41 - 51 mmHg 02/10/2022 17:00 EDT [facility] pO2, Venous 40 30 - 50 mmHg 02/10/2022 17:00 EDT [facility] tCO2, Venous 28 22 - 28 mmol/L 02/10/2022 17:00 EDT [facility] Temperature 37.0 C 02/10/2022 17:00 EDT [facility] Comment:Body Temp not noted. 37 degrees assumed. O2 Saturation, Venous 76 60 - 85 % 02/10/2022 17:00 EDT [facility] Oxygen Therapy (FIO2) 2.0 % 02/10/2022 17:00 EDT [facility] Base Level 2.00 -2.00 - 3.00 mmol/L 02/10/2022 17:00 EDT [facility] Blood VENOUS BLOOD / Unknown Venipuncture / Unknown 02/10/2022 16:50 EDT 02/10/2022 16:54 EDT us Laurent Solorzano MD CHEMISTRY & BLOOD GAS O RDERABLES Final Result Performing Organization Address [facility]/ZIP Co de Phone Number [facility] [address] [place] [address] * (ABNORMAL) COMPLETE BLOOD COUNT (02/10/2022 16:50 EDT) WBC 3.78(L) 4.00 - 12.40 K/cmm 02/10/2022 17:03 [facility] RBC 3.83(L) 3.86 - 5.04 M/cmm 02/10/2022 17:03 [facility] Hemoglobin 10.6(L) 11.6 - 15.2 gm/dL 02/10/2022 17:03 [facility] HCT 32.6(L) 34.9 - 44.4 % 02/10/2022 17:03 [facility] MCV 85 81 - 98 fl 02/10/2022 17:03 [facility] MCH 27.7 26.7 - 33.3 pg 02/10/2022 17:03 [facility] MCHC 32.5 32.1 - 35.9 gm/dL 02/10/2022 17:03 [facility] RDW-CV 17.2(H) <14.7 % 02/10/2022 17:03 [facility] RDW-SD 53.1(H) <50.4 fl 02/10/2022 17:03 [facility] PLT 91(L) 141 - 377 K/cmm 02/10/2022 17:03 [facility] MPV 9.6 9.5 - 12.7 fl 02/10/2022 17:03 [facility] Blood VENOUS BLOOD / Unknown Venipuncture / Unknown 02/10/2022 16:50 EDT 02/10/2022 16:54 EDT us Laurent Solorzano MD HEMATOLOGY & PF4 ORDERA BLES Final Result [facility] [address] [place] [address] * HEPARIN LEVEL - LOW MOLECULAR WEIGHT HEPARIN (02/10/2022 16:22 EDT) [facility] Heparin Level - LMWH <0.04 See comment below IU/mL 02/10/2022 16:55 EDT [facility] Comment: Therapeutic Heparin Range:(twice-a-day dosing, peak sample drawn 4 hours post subcutaneous injection) for treatment of venous thromboembolism: Adults and children: 0.5 - 1.1 IU/mL Ruby: 0.5 - 1.0 IU/mL ?? Therapeutic Heparin Range:(once-a-day dosing, peak sample drawn 4 hours post subcutaneous injection) for treatment of venous thromboembolism: 1.0 - 2.0 IU/mL. Results will be overestimated in the prescence of direct Xa inhibitors (rivaroxaban, apixaban, edoxaban) or pentasaccharides such as fondparinux. Exogenous ATIII is NOT supplied in this assay. For unexpected or persistently low levels, consider measuring the patient's ATIII level. Blood VENOUS BLOOD / Unknown Venipuncture / Unknown 02/10/2022 16:22 EDT 02/10/2022 16:28 EDT us Katherin Mora MD HEMATOLOGY & PF4 ORDERABLES Pricila l Result [facility] [address] [place] [address] * FIBRINOGEN (02/10/2022 16:22 EDT) [facility] Fibrinogen 204 171 - 384 mg/dL 02/10/2022 16:47 EDT [facility] Blood VENOUS BLOOD / Unknown Venipuncture / Unknown 02/10/2022 16:22 EDT 02/10/2022 16:28 EDT Katherin Mora MD HEMATOLOGY & PF4 ORDERABLES Pricila l Result Performing Organization Address City/[facility]/ZIP Co de Phone Number [facility] [address] [place] [address] * (ABNORMAL) D-DIMER (02/10/2022 16:22 EDT) [facility] D-Dimer 1,196(H) <=230 ng/mL DDU 02/10/2022 16:56 EDT [facility] Blood VENOUS BLOOD / Unknown Venipuncture / Unknown 02/10/2022 16:22 EDT 02/10/2022 16:28 EDT Narrative [facility] - 02/10/2022 16:56 EDT Cutoff value for the exclusion of DVT and PE: 230 ng/mL D-dimer units. Any use of the age-adjusted cutoff value is a post-analytic modification of this FDA-approved test and is considered off-label use of the test result. [facility] laboratory does not have literature to support the validity of an age-adjusted cutoff for our specific assay. us Katherin Mora MD HEMATOLOGY & PF4 ORDERABLES Pricila mccord Result [facility] [address] [place] [address] * (ABNORMAL) COMPLETE BLOOD COUNT (02/10/2022 15:33 EDT) WBC 3.57(L) 4.00 - 12.40 K/cmm 02/10/2022 15:47 [facility] RBC 3.96 3.86 - 5.04 M/cmm 02/10/2022 15:47 [facility] Hemoglobin 11.2(L) 11.6 - 15.2 gm/dL 02/10/2022 15:47 [facility] HCT 34.4(L) 34.9 - 44.4 % 02/10/2022 15:47 [facility] MCV 87 81 - 98 fl 02/10/2022 15:47 [facility] MCH 28.3 26.7 - 33.3 pg 02/10/2022 15:47 [facility] MCHC 32.6 32.1 - 35.9 gm/dL 02/10/2022 15:47 [facility] RDW-CV 17.1(H) <14.7 % 02/10/2022 15:47 [facility] RDW-SD 54.3(H) <50.4 fl 02/10/2022 15:47 [facility] PLT 99(L) 141 - 377 K/cmm 02/10/2022 15:47 [facility] MPV 10.0 9.5 - 12.7 fl 02/10/2022 15:47 [facility] Blood VENOUS BLOOD / Unknown Venipuncture / Unknown 02/10/2022 15:33 EDT 02/10/2022 15:37 EDT Bobby Franklin MD HEMATOLOGY & PF4 ORDERABLES Final Result [facility] [address] [place] [address] * BLOOD GASES, VENOUS (02/10/2022 15:33 EDT) pH, Venous 7.39 7.31 - 7.41 02/10/2022 15:47 [facility] pCO2, Venous 43 41 - 51 mmHg 02/10/2022 15:47 [facility] pO2, Venous 34 30 - 50 mmHg 02/10/2022 15:47 [facility] tCO2, Venous 27 22 - 28 mmol/L 02/10/2022 15:47 [facility] Temperature 36.5 C 02/10/2022 15:47 [facility] O2 Saturation, Venous 66 60 - 85 % 02/10/2022 15:47 [facility] Oxygen Therapy (FIO2) 2.0 % 02/10/2022 15:47 [facility] Base Level 0.60 -2.00 - 3.00 mmol/L 02/10/2022 15:47 [facility] Blood VENOUS BLOOD / Unknown Venipuncture / Unknown 02/10/2022 15:33 EDT 02/10/2022 15:36 EDT Bobby Franklin MD CHEMISTRY & BLOOD GAS ORDERA BLES Final Result [facility] [address] [place] [address] * (ABNORMAL) URINE CHEMICAL (DIP) & SEDIMENT (MICRO) WITH REFLEX TO CULTURE (02/10/2022 14:24 EDT) Color UA Yellow Colorless, Yellow 02/10/2022 14:50 [facility] Clarity UA Clear Clear 02/10/2022 14:50 [facility] Glucose UA Negative Negative 02/10/2022 14:50 [facility] Bilirubin UA Negative Negative 02/10/2022 14:50 [facility] Ketones UA Negative Negative 02/10/2022 14:50 [facility] Specific Parks, Urine 1.034 1.001 - 1.035 02/10/2022 14:50 [facility] Blood UA 1+(A) Negative 02/10/2022 14:50 [facility] Urobilinogen UA Normal Normal mg/dL 02/10/2022 14:50 [facility] Nitrite UA Negative Negative 02/10/2022 14:50 [facility] Leukocyte Esterase UA Negative Negative 02/10/2022 14:50 [facility] Protein UA Negative Negative 02/10/2022 14:50 [facility] pH, UA 8.0 4.6 - 8.0 02/10/2022 14:50 [facility] Urine RBC Count, Auto 11 - 50(A) 0 - 2 Cells/HPF 02/10/2022 14:50 [facility] Urine WBC Count, Auto 0 - 3 0 - 3 Cells/HPF 02/10/2022 14:50 [facility] Urine Squamous Count, Auto None Seen None Seen Cells/HPF 02/10/2022 14:50 [facility] Urine Hyaline Cast Count, Auto <=10 <=10 Casts/LPF 02/10/2022 14:50 [facility] Urine Bacteria Count, Auto None Seen None Seen Bacteria/HP F 02/10/2022 14:50 EDT [facility] Urine URINE SPECIMEN COLLECTION, CLEAN CATCH / Unknown Urine Collect / Unknown 02/10/2022 14:24 EDT 02/10/2022 14:31 EDT Narrative [facility] - 02/10/2022 14:50 EDT NOTE: Reflex to Urine Culture test is not indicated based on Urine Sediment Analysis results. Urine Sediment Analysis results are unreliable on urines that are unrefrigerated for >2 hrs or refrigerated >8 hrs. us Bobby Franklin MD URINALYSIS ORDERABLES Final Result [facility] [address] [place] [address] * CT ANGIO ABDOMEN PELVIS (02/10/2022 12:34 EDT) Anatomical Region Laterality Modality Body, Abdomen, Pelvis, Abdomen and Pelvis Computed Tomography 02/11/2022 8:19 EDT Impressions 02/11/2022 8:19 EDT 1. ??New from prior exam, there is a small area of active arterial extravasation into the extensive portal venous thrombosis. The extent of portal venous thrombosis is unchanged. This small area of active extravasation would be unlikely to account for the patient's hypotension. 2. 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 3. 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 There has been interval hypertrophy of the noninfarcted portion of the spleen. 4. 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 5. ??Diverticulosis without diverticulitis. These findings were discussed by phone with KATHERIN MORA by Alba Denise MD on 02/10/2022 2:22 PM. I have personally reviewed the images and the above interpretation and agree with the findings. Narrative 02/11/2022 8:[address] Angiogram of the Abdomen and Pelvis CLINICAL HISTORY: ??Syncope, hypotension, prior splenic artery embolization TECHNIQUE: Helical [...] review. Total DLP is 40-68.8 mGy*cm. COMPARISON: ??CT angiogram abdomen and pelvis 11/03/2021 FINDINGS: VASCULAR STRUCTURES: The abdominal aorta is normal in course and caliber. ?? The major mesenteric vessels in the abdomen, including the celiac axis, superior mesenteric artery, inferior mesenteric artery, and their respective branches, are patent. There is a small area of active arterial extravasation into the portal vein thrombosis which is new from prior (series 507 image 105). There is an unchanged 1.5 cm saccular [...] intrahepatic or extrahepatic biliary ductal dilatation. PANCREAS: ??Unremarkable. Normal caliber main pancreatic duct. SPLEEN: Redemonstrated partial splenic infarction status post embolization, with interval hypertrophy of the viable portion of the spleen. Overall splenic size has decreased in the interim, currently 15 cm craniocaudal, previously 20 cm craniocaudal. ADRENAL GLANDS: ??Unremarkable. GENITOURINARY: The kidneys enhance [...] repair in the right upper abdomen. No bowel-containing hernia. Procedure Note Ac Thomas MD - 02/11/2022 CT Angiogram of the Abdomen and Pelvis CLINICAL HISTORY: Syncope, hypotension, prior splenic arteryembolization TECHNIQUE: Helical computed tomography was performed through the abdomenand pelvis before and after the uneventful intravenous administration of100 mL of Omnipaque, including arterial and venous phase imaging. Oralcontrast was not administered. Multiplanar reformatted images weregenerated from the source data. Maximum intensity projection and volumerendered 3-D reconstructions were also provided for review. Total DLP is 40-68.8 mGy*cm. COMPARISON: CT angiogram abdomen and pelvis 11/03/2021 FINDINGS: VASCULAR STRUCTURES: The abdominal aorta is normal in course and caliber. The major mesenteric vessels in the abdomen, including the celiac axis,superior mesenteric artery, inferior mesenteric artery, and theirrespective branches, are patent. There is a small area of active arterialextravasation into the portal vein thrombosis which is new from prior(series 507 image 105). There is an unchanged 1.5 cm saccular splenicartery aneurysm (series 507 image 75). Embolization coils from priorpartial splenic artery embolization are again seen. The [...] portal venous thrombosis is not significantly changed comparedto prior, apart from the aforementioned active extravasation. There isdilation of the portal veins, and there are multiple splenic gastricvarices. INFERIOR THORAX/LUNG BASES: The lung bases are clear. There is no pleuraleffusion. The heart is globally normal in size. There is no pericardialeffusion. LIVER: The liver is normal in size and attenuation. The liver contour isnodular. No hepatic mass identified on arterial or venous phase imaging. GALLBLADDER AND BILIARY SYSTEM: Status post cholecystectomy. There is nointrahepatic or extrahepatic biliary ductal dilatation. PANCREAS: Unremarkable. Normal caliber main pancreatic duct. SPLEEN: Redemonstrated partial splenic infarction status postembolization, with interval hypertrophy of the viable portion of thespleen. Overall splenic size has decreased in the interim, currently 15 cmcraniocaudal, previously 20 cm craniocaudal. ADRENAL GLANDS: Unremarkable. GENITOURINARY: The kidneys enhance normally. There is nohydroureteronephrosis. The bladder is grossly within normal limits. Status post hysterectomy. GASTROINTESTINAL: Status post appendectomy. There is sigmoiddiverticulosis without associated inflammation. No obstruction. GENERAL: There is no free intraperitoneal air or fluid. LYMPH NODES: No enlarged lymph nodes identified within the abdomen orpelvis. OSSEOUS STRUCTURES: No aggressive osseous lesions identified. Degenerativechanges are present in the hips and at multiple levels in the spine. SOFT TISSUES: Prior ventral hernia repair in the right upper abdomen. Nobowel-containing hernia. IMPRESSION 1. New from prior exam, there is a small area of active arterialextravasation into the extensive portal venous thrombosis. The extent ofportal venous thrombosis is unchanged. This small area of activeextravasation would be unlikely to account for the patient'shypotension. 2. 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 3. Prior partial splenic artery embolization with expected partialsplenic infarction. There has been interval hypertrophy of thenoninfarcted portion of the spleen. 4. Cirrhotic configuration of the liver with enlargement of the portalveins and multiple splenogastric varices, compatible with portalhypertension. 5. Diverticulosis without diverticulitis. These findings were discussed by phone with KATHERIN MORA by Alba Linda 02/10/2022 2:22 PM. I have personally reviewed the images and the above interpretation andagree with the findings. Katherin Mora MD IMG CT ORDERABLES Final Result * COVID-19 TEST [facility] PCR (02/10/2022 11:53 EDT) Swab ENTIRE NASOPHARYNX / Unknown Swab / Unknown 02/10/2022 11:53 EDT 02/10/2022 12:02 EDT us Katherin Mora MD MICROBIOLOGY - GENERAL ORDERABLE S Final Result Performing Organization Address [facility] Co de Phone Number [facility] [address] [place] [address] * COVID-19 TESTING (02/10/2022 11:53 EDT) COVID-19 rt-PCR Result Negative Negative 02/10/2022 16:08 EDT [facility] Comment: [...] history, and epidemiological information. Performed on the [employer] Fusion instrument Performing Lab [place] [facility] 02/10/2022 16:08 EDT [facility] Swab ENTIRE NASOPHARYNX / Unknown Swab / Unknown 02/10/2022 11:53 EDT 02/10/2022 12:02 EDT us Katherin Mora MD MICROBIOLOGY - GENERAL ORDERABLE S Final Result Performing Organization Address [facility]/ZIP Co de Phone Number [facility] [address] [place] [phone] * (ABNORMAL) BLOOD GASES, VENOUS (02/10/2022 11:48 EDT) pH, Venous 7.37 7.31 - 7.41 02/10/2022 12:14 EDT [facility] pCO2, Venous 47 41 - 51 mmHg 02/10/2022 12:14 EDT [facility] pO2, Venous 27(L) 30 - 50 mmHg 02/10/2022 12:14 EDT [facility] tCO2, Venous 28 22 - 28 mmol/L 02/10/2022 12:14 EDT [facility] Temperature 36.1 C 02/10/2022 12:14 EDT [facility] O2 Saturation, Venous 50(L) 60 - 85 % 02/10/2022 12:14 T [facility] Oxygen Therapy (FIO2) 0.0 % 02/10/2022 12:14 T [facility] Base Level 0.90 -2.00 - 3.00 mmol/L 02/10/2022 12:14 EDT [facility] Blood VENOUS BLOOD / Unknown Venipuncture / Unknown 02/10/2022 11:48 EDT 02/10/2022 12:00 EDT us Bobby Franklin MD CHEMISTRY & BLOOD GAS ORDERA BLES Final Result Performing Organization Address City/[facility]/ZIP Co de Phone Number [facility] [address] [place] [address] * LIPASE (02/10/2022 11:45 EDT) Lipase 101 <251 U/L 02/10/2022 13:59 EDT [facility] Blood VENOUS BLOOD / Unknown Venipuncture / Unknown 02/10/2022 11:45 EDT 02/10/2022 12:01 EDT us Katherin Mora MD CHEMISTRY & BLOOD GAS ORDERABLES Final Result Performing Organization Address City/[facility]/ZIP Co de Phone Number [facility] [address] [place] [address] * TYPE AND SCREEN (02/10/2022 11:45 EDT) ABO O 02/10/2022 13:36 EDT [facility] Rh Factor Positive 02/10/2022 13:36 EDT [facility] Antibody Screen Negative 02/10/2022 13:36 EDT [facility] Specimen Expires: 02/13/2022 @ 23:59 02/10/2022 13:36 EDT [facility] Blood VENOUS BLOOD / Unknown Venipuncture / Unknown 02/10/2022 11:45 EDT 02/10/2022 12:03 EDT us Katherin Mora MD BLOOD BANK TESTS Edited Result - Final [facility] [address] [place] [address] * PROTIME (02/10/2022 11:45 EDT) I.N.R. 1.0 0.9 - 1.1 Ratio 02/10/2022 12:46 EDT [facility] Pro Time 11.9 10.4 - 12.6 secs 02/10/2022 12:46 EDT [facility] Blood VENOUS BLOOD / Unknown Venipuncture / Unknown 02/10/2022 11:45 EDT 02/10/2022 12:01 EDT Narrative [facility] - 02/10/2022 12:46 EDT Moderate Intensity Coumadin INR = 2.0-3.0 Adjustments in anticoagulant therapy dose should be based on the INR and NOT on the Protime. us Katherin Mora MD HEMATOLOGY & PF4 ORDERABLES Pricila l Result [facility] [address] [place] [address] * PTT (02/10/2022 11:45 EDT) PTT 32 26 - 37 secs 02/10/2022 12:46 EDT [facility] Blood VENOUS BLOOD / Unknown Venipuncture / Unknown 02/10/2022 11:45 EDT 02/10/2022 12:01 EDT Katherin Mora MD HEMATOLOGY & PF4 ORDERABLES Pricila l Result Performing Organization Address [facility] Co de Phone Number [facility] [address] [place] [address] * NT PRO BNP (02/10/2022 11:45 EDT) NT-pro BNP 33 <125 pg/mL 02/10/2022 12:45 EDT [facility] Comment:The results of this assay can be falsely lowered due to consumption of Biotin. Blood VENOUS BLOOD / Unknown Venipuncture / Unknown 02/10/2022 11:45 EDT 02/10/2022 12:01 EDT Bobby Franklin MD CHEMISTRY & BLOOD GAS ORDERA BLES Final Result Performing Organization Address [facility] Co de Phone Number [facility] [address] [place] [address] * TROPONIN I (02/10/2022 11:45 EDT) Troponin I (ng/mL) <0.034 <0.034 ng/mL 02/10/2022 12:45 EDT [facility] Blood VENOUS BLOOD / Unknown Venipuncture / Unknown 02/10/2022 11:45 EDT 02/10/2022 12:01 EDT Narrative [facility] - 02/10/2022 12:45 EDT The results of this assay can be falsely lowered due to the consumption of Biotin. Bobby Franklin MD CHEMISTRY & BLOOD GAS ORDERA BLES Final Result Performing Organization Address [facility] Co de Phone Number [facility] [address] [place] [address] * MAGNESIUM (02/10/2022 11:45 EDT) Magnesium 1.9 1.7 - 2.8 mg/dL 02/10/2022 12:33 EDT [facility] Blood VENOUS BLOOD / Unknown Venipuncture / Unknown 02/10/2022 11:45 EDT 02/10/2022 12:01 EDT Bobby Franklin MD CHEMISTRY & BLOOD GAS ORDERA BLES Final Result Performing Organization Address [facility] Co de Phone Number [facility] [address] [place] [address] * LACTIC ACID WITH REFLEX - USE FOR INITIAL SEPSIS EVALUATION (02/10/2022 11:45 EDT) Lactic Acid 1.2 <=2.0 mmol/L 02/10/2022 12:33 T [facility] Blood VENOUS BLOOD / Unknown Venipuncture / Unknown 02/10/2022 11:45 EDT 02/10/2022 12:01 EDT Bobby Franklin MD CHEMISTRY & BLOOD GAS ORDERA BLES Final Result Performing Organization Address [facility] Co de Phone Number [facility] [address] [place] [address] * (ABNORMAL) COMPREHENSIVE METABOLIC PANEL (CMP) (02/10/2022 11:45 EDT) Sodium 139 136 - 145 mmol/L 02/10/2022 12:33 [facility] Potassium 4.7 3.5 - 5.0 mmol/L 02/10/2022 12:33 [facility] Chloride 103 96 - 110 mmol/L 02/10/2022 12:33 [facility] CO2 Total 30 22 - 32 mmol/L 02/10/2022 12:33 [facility] Glucose 98 70 - 100 mg/dL 02/10/2022 12:33 [facility] BUN 20 10 - 26 mg/dL 02/10/2022 12:33 [facility] Creatinine 1.06(H) 0.52 - 1.04 mg/dL 02/10/2022 12:33 [facility] eGFR 57(L) >60 mL/min/1.7 3m2 02/10/2022 12:33 [facility] Total Protein 7.9 6.3 - 8.2 g/dL 02/10/2022 12:33 [facility] Albumin 4.2 3.4 - 4.9 g/dL 02/10/2022 12:33 [facility] Alkaline Phosphatase 151(H) 38 - 126 U/L 02/10/2022 12:33 [facility] AST 27 15 - 46 U/L 02/10/2022 12:33 [facility] ALT 13 <35 U/L 02/10/2022 12:33 [facility] Bilirubin, Total 0.6 <1.4 mg/dL 02/11/20 12:33 [facility] Calcium 9.1 8.5 - 10.5 mg/dL 02/10/2022 12:33 [facility] Albumin/Globulin Ratio 1.1 1.0 - 2.5 02/10/2022 12:33 [facility] Anion Gap 6 5 - 14 02/10/2022 12:33 [facility] Blood VENOUS BLOOD / Unknown Venipuncture / Unknown 02/10/2022 11:45 EDT 02/10/2022 12:01 EDT us Bobby Franklin MD CHEMISTRY & BLOOD GAS ORDERA BLES Final Result [facility] [address] [place] [address] * (ABNORMAL) COMPLETE BLOOD COUNT AND DIFFERENTIAL (02/10/2022 11:45 EDT) WBC 3.91(L) 4.00 - 12.40 K/cmm 02/10/2022 12:11 [facility] RBC 4.37 3.86 - 5.04 M/cmm 02/10/2022 12:11 [facility] Hemoglobin 12.2 11.6 - 15.2 gm/dL 02/10/2022 12:11 [facility] HCT 37.6 34.9 - 44.4 % 02/10/2022 12:11 [facility] MCV 86 81 - 98 fl 02/10/2022 12:11 [facility] MCH 27.9 26.7 - 33.3 pg 02/10/2022 12:11 [facility] MCHC 32.4 32.1 - 35.9 gm/dL 02/10/2022 12:11 [facility] RDW-CV 17.2(H) <14.7 % 02/10/2022 12:11 [facility] RDW-SD 54.5(H) <50.4 fl 02/10/2022 12:11 [facility] PLT 100(L) 141 - 377 K/cmm 02/10/2022 12:11 [facility] MPV 9.4(L) 9.5 - 12.7 fl 02/10/2022 12:11 [facility] % Neutrophils 81.0 % 02/10/2022 12:11 [facility] % Lymphocytes 8.7 % 02/10/2022 12:11 [facility] % Monocytes 8.4 % 02/10/2022 12:11 [facility] % Eosinophils 0.8 % 02/10/2022 12:11 [facility] % Basophils 0.8 % 02/10/2022 12:11 [facility] % Immature Grans 0.3 % 02/11/20 12:11 [facility] Absolute Neutrophils 3.17 2.20 - 8.85 K/cmm 02/10/2022 12:11 [facility] Absolute Lymphocytes 0.34(L) 1.09 - 3.30 K/cmm 02/10/2022 12:11 [facility] Absolute Monocytes 0.33 0.10 - 0.80 K/cmm 02/10/2022 12:11 [facility] Absolute Eosinophils 0.03 0.03 - 0.61 K/cmm 02/10/2022 12:11 EDT [facility] ABS Basophils 0.03 0.01 - 0.11 K/cmm 02/10/2022 12:11 EDT [facility] Absolute Immature Grans 0.01 0.00 - 0.06 K/cmm 02/10/2022 12:11 EDT [facility] Type of Differential: Auto 02/10/2022 12:11 EDT [facility] Blood VENOUS BLOOD / Unknown Venipuncture / Unknown 02/10/2022 11:45 EDT 02/10/2022 12:01 EDT us Bobby Franklin MD PACKAGES & DNA PROBE ORDERAB LES Final Result Performing Organization Address City/State/[facility] Co de Phone Number [facility] [address] [place] [address] * POCT US ED ABDOMEN (02/10/2022 11:34 EDT) Anatomical Region Laterality Modality Other 02/10/2022 11:3 4 EDT Narrative 02/14/2022 11:26 EDT Study Date and Time: 2022-02-10 11:34 Study Author: Katherin Mora EDR ED Abdomen - Adult: Indications: ?Indications for this focused Ultrasound:: Abdominal pain ?Other indications: N/A Exam Information: ?The following structures were examined for possible bowel pathology: Other ?The following structures were examined for possible solid organ pathology: N/A ?Other Indications: Abdominal pain, history of portal/splenic pathology, syncope Findings of bowel evaluation: ?Small bowel: N/A ?Large bowel: N/A ?Other findings: No free fluid in the abdomen. Evidence of hypoechogenic portion of the spleen Interpretation: ?Perioneal free fluid: Absent ?Small bowel obstruction: N/A ?Large bowel: N/A ?Sonographic Evidence of Organ Pathology: N/A ?Other Bowel Pathology: N/A ?Other findings: N/A Confirmatory study: ?What confirmatory study was performed during ED patient evaluation?: CT scan ?Confirmatory study findings or comments:: Active extravasation into the known portal vein thrombus. Prior splenic embolization Signed by Katherin VARGAS on 2022-02-10 17:30 Physician Attestation: I reviewed and independently interpreted these images. ??I was present for the brown and critical portions of the ultrasound imaging and agree with or have edited the findings as documented. Final Signature by González ARCHER on 2022-02-14 11:26 Procedure Note Bobby Franklin MD - 02/14/2022 Study Date and Time: 2022-02-10 11:34 Study Author: Katherin VARGAS ED Abdomen - Adult: Indications: Indications for this focused Ultrasound:: Abdominal pain Other indications: N/A Exam Information: The following structures were examined for possible bowel pathology:Other The following structures were examined for possible solid organpathology: N/A Other Indications: Abdominal pain, history of portal/splenicpathology, syncope Findings of bowel evaluation: Small bowel: N/A Large bowel: N/A Other findings: No free fluid in the abdomen. Evidence ofhypoechogenic portion of the spleen Interpretation: Perioneal free fluid: Absent Small bowel obstruction: N/A Large bowel: N/A Sonographic Evidence of Organ Pathology: N/A Other Bowel Pathology: N/A Other findings: N/A Confirmatory study: What confirmatory study was performed during ED patient evaluation?:CT scan Confirmatory study findings or comments:: Active extravasation intothe known portal vein thrombus. Prior splenic embolization Signed by Katherin VARGAS on 2022-02-10 17:30 Physician Attestation: I reviewed and independently interpreted theseimages. I was present for the brown and critical portions of the ultrasoundimaging and agree with or have edited the findings as documented. Final Signature by González ARCHER on 2022-02-14 11:26 us Katherin Mora MD IMG POCT US ORDERABLES Final Res ult * EKG 12-LEAD (02/10/2022 11:21 EDT) 02/10/2022 11:2 1 EDT Narrative [facility] EKG - 02/19/2022 15:47 EDT ?[facility] ? Test Date: ?2022-02-10 Pat Name: ? PHYLISS BOOTHE ?Department: ?? ED ? Room: ? AC04 Gender: ? Female ? Spring Inspector: ?? : ?1960 ? Requested By: RIGOBERTO BOBBY Order Number: [id number] ? Reading MD: ?? SHERIF DANIEL MD ? Measurements Intervals ?Odell ? Rate: ? 83 ? P: ?72 ND: ? 149 ?QRS: ?79 QRSD: ? 93 ? T: ?53 QT: ? 382 ? QTc: ?451 ? Interpretive Statements SINUS RHYTHM Automated Interpretation. ??Provider Interpretation to follow. Compared to ECG 12/14/2021 14:06:19 T-wave abnormality no longer present I reviewed the tracing and have either agreed or edited the findings in this report. Electronically Signed On 02-19-2022 15:47:31 EDT by SHERIF DANIEL MD. Procedure Note Sherif Daniel MD - 02/19/2022 [facility] Test Date: 2022-02-10 Pat Name: TARA BOOTHE Department: ED Room: [facility] Gender: Female Spring Inspector: : 1960 Requested By: RIGOBERTO VILLARREAL Order Number: [id number] Reading MD: SHERIF DANIEL MD Measurements Intervals Odell Rate: 83 P: 72 ND: 149 QRS: 79 QRSD: 93 T: 53 QT: 382 QTc: 451 Interpretive Statements SINUS RHYTHM Automated Interpretation. Provider Interpretation to follow. Compared to ECG 12/14/2021 14:06:19 T-wave abnormality no longer present I reviewed the tracing and have either agreed or edited the findings inthis report. Electronically Signed On 02-19-2022 15:47:31 EDT by SHERIF SNELL. us Bobby Franklin MD CARDIAC ECG ORDERABLES Final Result [facility] EKG documented in this encounter Visit Diagnoses Diagnosis Portal vein thrombosis LUQ abdominal pain Abdominal pain, left upper quadrant At high risk for falls Personal history of fall Anticoagulation management encounter Encounter for therapeutic drug monitoring Arterial hemorrhage Pancytopenia (HCC-CMS) Other pancytopenia HUEY (obstructive sleep apnea) Obstructive sleep apnea (adult) (pediatric) Chronic pain syndrome Chronic respiratory failure with hypoxia (HCC-CMS) Chronic respiratory failure Other cirrhosis of liver (HCC-CMS) 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HCC-CMS) LUQ abdominal pain Abdominal pain, left upper quadrant Portal vein thrombosis Orthostatic hypotension documented in this encounter Admitting Diagnoses Diagnosis LUQ abdominal pain Abdominal pain, left upper quadrant Orthostatic hypotension documented in this encounter Administered Medications Inactive Administered Medications - up to 3 most recent administrations Medication Order MAR Action Action Date Dose Rate Site amitriptyline (ELAVIL) tablet 25 mg 25 mg, oral, AT BEDTIME, First dose on Tue02/10/22 at 2100, Until Discontinued, Routine Given 02/11/2022 20:55 EDT 25 mg Given 02/10/2022 20:59 EDT 25 mg budesonide-formoterol HFA (SYMBICORT) 160-4.5 mcg/actuation inhaler 2 Puff 2 Puff, inhalation, DAILY, First dose on Kirsten 02/11/22 at 0900, Until Discontinued, Routine Given 02/12/2022 8:20 EDT 2 Puffs Given 02/11/2022 9:44 EDT 2 Puffs cefTRIAXone (ROCEPHIN) 1,000 mg in sodium chloride (NS MBP) 50 mL IVPB 1,000 mg, intravenous, Administer over 30 Minutes, NOW X1, 1 dose, On Tue02/10/22 at 1700, Type of Therapy: Empiric, Suspected Indication (Select all that apply): Primary or spontaneous peritonitis, ID Consult: No, STAT New Bag 02/10/2022 17:06 EDT 1,000 mg ferrous sulfate EC tablet 324 mg 324 mg, oral, EVERY 48 HOURS, First dose on Tue02/10/22 at 1915, Until Discontinued, Routine Given 02/10/2022 20:09 EDT 324 mg HYDROmorphone (PF) (DILAUDID) 0.5 mg/0.5 mL syringe 1 mg 1 mg, intravenous, NOW X1, 1 dose, On Tue02/10/22 at 1145, STAT Given 02/10/2022 11:45 EDT 1 mg HYDROmorphone (PF) (DILAUDID) 0.5 mg/0.5 mL syringe 1 mg 1 mg, intravenous, NOW X1, 1 dose, On Tue02/10/22 at 1315, STAT Given 02/10/2022 13:19 EDT 1 mg iohexoL (OMNIPAQUE 350) solution 100 mL 100 mL, intravenous, Once in imaging, 1 dose, Starting on Tue02/10/22 at 1234, Until Tue02/10/22 at 1234, Routine, Imaging Protocol Orders Given 02/10/2022 12:34 EDT 100 mL lactated ringers (LR) infusion at 75 mL/hr, 1,000 mL, intravenous, CONTINUOUS, Starting on Tue02/11/22 at 1230, Until Tue02/12/22 at 0321, Routine Rate Documented 02/11/2022 23:43 EDT 75 mL/hr New Bag 02/11/2022 14:02 EDT 1,000 mL 75 mL/hr lactated ringers BOLUS 1,000 mL 1,000 mL, intravenous, NOW X1, 1 dose, On Tue02/10/22 at 1145, STAT New Bag 02/10/2022 12:05 EDT 1,000 mL levothyroxine (SYNTHROID) tablet 25 mcg 25 mcg, oral, DAILY BEFORE BREAKFAST, First dose on Tue02/11/22 at 0700, Until Discontinued, Routine Given 02/12/2022 6:10 EDT 25 mcg Given 02/11/2022 6:29 EDT 25 mcg ondansetron (PF) (ZOFRAN) injection 4 mg 4 mg, intravenous, NOW X1, 1 dose, On Tue02/10/22 at 1145, STAT Given 02/10/2022 11:54 EDT 4 mg ondansetron (PF) (ZOFRAN) injection 4 mg 4 mg, intravenous, NOW X1, 1 dose, On Tue02/10/22 at 1545, STAT Given 02/10/2022 15:57 EDT 4 mg oxyCODONE (ROXICODONE) immediate release tablet 5 mg 5 mg, oral, 2 TIMES DAILY PRN, Starting on Tue02/10/22 at 1856, Until Tue02/12/22 at 1611, Pain, Routine Given 02/12/2022 13:08 EDT 5 mg Given 02/12/2022 8:27 EDT 5 mg Given 02/11/2022 20:37 EDT 5 mg pantoprazole (PROTONIX) tablet 40 mg 40 mg, oral, 2 TIMES DAILY, First dose on Tue02/10/22 at 2100, Until Discontinued, Routine Given 02/12/2022 8:21 EDT 40 mg Given 02/11/2022 20:55 EDT 40 mg Given 02/11/2022 9:42 EDT 40 mg ramelteon (ROZEREM) tablet 8 mg 8 mg, oral, AT BEDTIME PRN, Starting on Tue02/10/22 at 1818, Until Tue02/12/22 at 1611, Sleep, Routine Given 02/11/2022 20:55 EDT 8 mg Given 02/10/2022 20:59 EDT 8 mg sertraline (ZOLOFT) tablet 50 mg 50 mg, oral, DAILY, First dose on Tue02/11/22 at 0900, Until Discontinued, Routine Given 02/12/2022 8:21 EDT 50 mg Given 02/11/2022 9:43 EDT 50 mg sucralfate (CARAFATE) tablet 1 g 1 g, oral, 4 TIMES DAILY, First dose on Tue02/10/22 at 2100, Until Discontinued, Routine Given 02/12/2022 12:22 EDT 1 g Given 02/12/2022 8:21 EDT 1 g Given 02/11/2022 20:55 EDT 1 g documented in this encounter Discontinued Medications Medication Sig Discontinue Reason Start Date End Da te traZODone (DESYREL) 150 mg tablet Take 2 Tablets by mouth at bedtime. 12/10/2021 02/12/2022 apixaban (ELIQUIS) 2.5 mg tabletIndications:Portal vein thrombosis,Superior mesenteric vein thrombosis (HCC-CMS),Primary hypercoagulable state (HCC-CMS) Take 1 Tablet by mouth 2 times daily. 12/16/2021 02/12/2022 furosemide (LASIX) 20 mg tablet TAKE 2TAB BY MOUTH EVERY MORNING 01/27/2022 02/12/2022 spironolactone (ALDACTONE) 50 mg tablet Take 1.5 Tablets by mouth daily for 90 days. 01/27/2022 02/12/2022 documented as of this encounter Active and Recently Administered Medications Times are shown in EDT. Scheduled Medication Order 02/10/2022 02/11/2022 02/12/2022 amitriptyline (ELAVIL) tablet 25 mg 25 mg, oral, AT BEDTIME, First dose on Tue02/10/22 at 2100, Until Discontinued, Routine 2058 (Given - Provider: Darryl Velarde, KENN) 2054 (Given - Provider: Darryl Velarde RN) budesonide-formoterol HFA (SYMBICORT) 160-4.5 mcg/actuation inhaler 2 Puff 2 Puff, inhalation, DAILY, First dose on Kirsten 02/11/22 at 0900, Until Discontinued, Routine 09 (Given - Provider: Severo Robertson, RN) 0820 (Given - Provider: Severo Robertson, KENN) cefTRIAXone (ROCEPHIN) 1,000 mg in sodium chloride (NS MBP) 50 mL IVPB (COMPLETED) 1,000 mg, intravenous, Administer over 30 Minutes, NOW X1, 1 dose, On Tue02/10/22 at 1700, Type of Therapy: Empiric, Suspected Indication (Select all that apply): Primary or spontaneous peritonitis, ID Consult: No, STAT 1706 (New Bag - Provider: Ne Villarreal, RN)1736 (IV Stopped - Provider: Jacy Leos, RN) ferrous sulfate EC tablet 324 mg 324 mg, oral, EVERY 48 HOURS, First dose on Tue02/10/22 at 1915, Until Discontinued, Routine 2008 (Given - Provider: Cande Camacho, KENN) HYDROmorphone (PF) (DILAUDID) 0.5 mg/0.5 mL syringe 1 mg (COMPLETED) 1 mg, intravenous, NOW X1, 1 dose, On Tue02/10/22 at 1145, STAT 1145 (Given - Provider: Ne Villarreal, KENN) HYDROmorphone (PF) (DILAUDID) 0.5 mg/0.5 mL syringe 1 mg (COMPLETED) 1 mg, intravenous, NOW X1, 1 dose, On Tue02/10/22 at 1315, STAT 1319 (Given - Provider: Mercedes Womack) iohexoL (OMNIPAQUE 350) solution 100 mL (COMPLETED) 100 mL, intravenous, Once in imaging, 1 dose, Starting on Tue02/10/22 at 1234, Until Tue02/10/22 at 1234, Routine, Imaging Protocol Orders 1234 (Given - Provider: Jennifer Tyson) lactated ringers BOLUS 1,000 mL (COMPLETED) 1,000 mL, intravenous, NOW X1, 1 dose, On Tue02/10/22 at 1145, STAT 1205 (New Bag - Provider: Ne Villarreal, KENN)1320 (IV Stopped - Provider: Mercedes Womack) levothyroxine (SYNTHROID) tablet 25 mcg 25 mcg, oral, DAILY BEFORE BREAKFAST, First dose on Kirsten 02/11/22 at 0700, Until Discontinued, Routine 06 (Given - Provider: Darryl Velarde RN) 06 (Given - Provider: Lon Hurley RN) ondansetron (PF) (ZOFRAN) injection 4 mg (COMPLETED) 4 mg, intravenous, NOW X1, 1 dose, On Tue02/10/22 at 1145, STAT 1154 (Given - Provider: Ne Villarreal, KENN) ondansetron (PF) (ZOFRAN) injection 4 mg (COMPLETED) 4 mg, intravenous, NOW X1, 1 dose, On Tue02/10/22 at 1545, STAT 1557 (Given - Provider: Ne Villarreal, KENN) pantoprazole (PROTONIX) tablet 40 mg 40 mg, oral, 2 TIMES DAILY, First dose on Tue02/10/22 at 2100, Until Discontinued, Routine 2008 (Given - Provider: Cande Camacho RN) 0942 (Given - Provider: Severo Robertson RN)2054 (Given - Provider: Darryl Velarde RN) 08 (Given - Provider: Severo Robertson, KENN) sertraline (ZOLOFT) tablet 50 mg 50 mg, oral, DAILY, First dose on Tue02/11/22 at 0900, Until Discontinued, Routine 942 (Given - Provider: Severo Robertson RN) 08 (Given - Provider: Severo Robertson, KENN) sucralfate (CARAFATE) tablet 1 g 1 g, oral, 4 TIMES DAILY, First dose on Tue02/10/22 at 2100, Until Discontinued, Routine 2099 (Given - Provider: Darryl Velarde RN) 0942 (Given - Provider: Severo Robertson RN)115 (Given - Provider: Severo Robertson RN)175 (Given - Provider: Severo Robertson RN)2054 (Given - Provider: Darryl Velarde RN) 0821 (Given - Provider: Severo Robertson, RN)1222 (Given - Provider: Zara Saavedra) Continuous Medication Order 02/10/2022 02/11/2022 02/12/2022 lactated ringers (LR) infusion (CANCELED) at 75 mL/hr, 1,000 mL, intravenous, CONTINUOUS, Starting on Kirsten 02/11/22 at 1230, Until Tue02/12/22 at 0321, Routine 1402 (New Bag - Provider: Severo Robertson RN)2343 (Rate Documented - Provider: Lon Hurley, RN) 0536 (Completed - Provider: Lon Hurley RN) PRN Medication Order 02/10/2022 02/11/2022 02/12/2022 albuterol inhaler 90-180 mcg 90-180 mcg (1-2 Puff), inhalation, EVERY 4 HOURS PRN, Starting on Tue02/10/22 at 1856, Until Tue02/12/22 at 1611, Wheezing, Routine lidocaine (PF) 10 mg/mL (1 %) injection 2 mg 2 mg, intradermal, PRN, 4 doses, Starting on Tue02/10/22 at 1818, Until Tue02/12/22 at 1611, peripheral intravenous catheter placement, Routine ondansetron (ZOFRAN-ODT) disintegrating tablet 4 mg 4 mg, oral, EVERY 6 HOURS PRN, Starting on Tue02/10/22 at 1856, Until Tue02/12/22 at 1611, Nausea, Routine oxyCODONE (ROXICODONE) immediate release tablet 5 mg 5 mg, oral, 2 TIMES DAILY PRN, Starting on Tue02/10/22 at 1856, Until Tue02/12/22 at 1611, Pain, Routine 2058 (Given - Provider: Darryl Velarde RN) 1155 (Given - Provider: Severo Robertson RN)2036 (Given - Provider: Lon Hurley RN) 0827 (Given - Provider: Severo Robertson RN)1308 (Given - Provider: Severo Robertson, KENN) polyethylene glycol 3350 (MIRALAX) packet 17 g 17 g, oral, DAILY PRN, Starting on Tue02/10/22 at 1818, Until Tue02/12/22 at 1611, Constipation, Routine ramelteon (ROZEREM) tablet 8 mg 8 mg, oral, AT BEDTIME PRN, Starting on Tue02/10/22 at 1818, Until Tue02/12/22 at 1611, Sleep, Routine 2058 (Given - Provider: Darryl Velarde RN) 2054 (Given - Provider: Darryl Velarde RN) documented in this encounter Orders Medications Ordered That Luc ht Not Have Been Administered Count Last Ordered Date First Ordered Date albuterol inhaler 90-180 mcg 1 02/10/2022 lactated ringers BOLUS 1,000 mL 1 lidocaine (PF) 10 mg/mL (1 % ) injection 2 mg 1 02/10/2022 ondansetron (ZOFRAN-ODT) dis integrating tablet 4 mg 1 02/10/2022 polyethylene glycol 3350 (UT RALAX) packet 17 g 1 02/10/2022 Diet Count Last Ordered Date First Orde red Date DISCHARGE DIET 1 02/12/2022 Nursing Count Last Ordered Date First Orde red Date ACTIVITY INSTRUCTIONS 1 02/12/2022 BATHING INSTRUCTIONS 1 02/12/2022 DRIVING INSTRUCTIONS 1 02/12/2022 CONTRAINDICATION TO ANTICOAG ULATION THERAPY 1 02/10/2022 PT Count Last Ordered Date First Orde red Date PT EVALUATION AND TREAT 1 02/12/2022 Admission Count Last Ordered Date First Orde red Date ADMIT TO INPATIENT 1 02/11/2022 OUTPATIENT WITH OBSERVATION SERVICES (INITIATE OBSERVATION STATUS) 1 02/10/2022 Transfer Count Last Ordered Date First Orde red Date ED BED REQUEST 1 02/10/2022 Discharge Count Last Ordered Date First Orde red Date DISCHARGE PATIENT 1 02/12/2022 Legal Count Last Ordered Date First Orde red Date MISCELLANEOUS DISCHARGE INSTRUCTIONS 01/20 documented in this encounter Care Teams Glass Washer Relationship Specialty Start Date End Date Emigdio Veronica MD [address] [place] [phone] PCP - General Internal Medicine - Primary Care 05/22/20 02/21/24 Starr Paige MD [address] [place] [phone] Hematology 10/08/21 06/09/22 Dana Padilla MD [address] [facility], [facility] 2 [place] [phone] Hematology 01/13/22 06/09/22 documented as of this encounter
--- OUTSIDE RECORDS SUMMARY | 2024-11-22 17:06 | XMS_ITS | Encounter Summary ---
Author Organization [facility] Address [address] [place] [address] Care Team Providers Care Associate Java Developer Name Role Phone Emigdio Veronica MD Primary Care Provider + Starr Paige MD Unavailable [phone] Dana Padilla MD Unavailable Izabella Snowden [facility] Unavailable None, Provider Primary Care Provider UnavailGabriel Dacosta Primary Care Provider Mirna Guerrero Primary Care Provider + Reason for Visit * Reason Onset Date Comments Appointment Related 03/10/2022 today Encounter Details Date Type Department Care Team (Late st Contact Info) Description 03/10/2022 Telephone [facility] Pulmonology & Critical Care - [facility] [address] [place] [address] Arun Rocha MD Appointment Related (today) Social History Tobacco Use Types Packs/Day Years [...] 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 She advised she was still sick, but feeling much better than this morning. Rescheduled her cancelled appointment with Dr. Rocha today to next available on 06/16/22 at 4:30pm. * Telephone Encounter - Dana Dodson - 03/10/2022 0928 EDT Patient home sick. Will not be at today's appointment. Please call to reschedule. documented in this encounter Plan of Treatment Upcoming Encounters Date Type Department Care Team (Late st Contact Info) Description 01/04/2025 13:00 EST Office Visit [facility] Ophthalmology - [address] [phone] Gagandeep Rome MD [address] [place] [address] 5 [place] [phone] 02/11/2025 13:30 EDT Telemedicine [facility] Hematology & Oncology - [address] [phone] Dana Padilla MD [address] [place] [address], [facility] 2 [place] [phone] documented as of this encounter Visit Diagnoses [...] documented as of this encounter Care Teams Associate Java Developer Relationship Specialty Start Date End Date Emigdio Veronica MD [address] [place] [phone] PCP - General Internal Medicine - Primary Care 05/22/20 02/21/24 None, Provider PCP - General 02/24/24 03/18/24 Gabriel Gandara PA PCP - General 03/19/24 09/11/24 Mirna Guerrero PA [address] [place] [address] PCP - General 09/12/24 Starr Paige MD [address] [place] [phone] Hematology 10/08/21 06/09/22 Dana Padilla MD 111 [facility], [facility], Level 2 [place] [address] Hematology 01/13/22 06/09/22 Izabella Snowden, [facility] 1 [facility], 3rd [place] [address] Senior Category Manager 02/21/23 05/03/24 documented as of this encounter
--- OUTSIDE RECORDS SUMMARY | 2024-11-22 17:06 | XMS_ITS | Encounter Summary ---
Author Organization [facility] Address [address] [place] [address] Care Team Providers Care Twisting Frame Fixer Name Role Phone Emigdio Veronica MD Primary Care Provider + Starr Paige MD Unavailable [phone] Dana Padilla MD Unavailable Reason for Visit * Reason Onset Date Comments Hospital Discharge Follow Up 02/15/2022 Encounter Details Date Type Department Care Team (Late st Contact Info) Description 02/15/2022 Telephone [facility] Adult Primary Care - [place] [address] [place] [address] Claudine Santa, [facility] Discharge Follow Up Social History [...] 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 See alternate HFU encounter. documented in this encounter Plan of Treatment Upcoming Encounters Date Type Department Care Team (Late st Contact Info) Description 01/04/2025 13:00 EST Office Visit [facility] Ophthalmology - [address] [phone] Gagandeep Rome MD [address] [place] [address] 5 [place] [phone] 02/11/2025 13:30 EDT Telemedicine [facility] Hematology & Oncology - [address] [phone] Dana Padilla MD [address] [place] [address] 2 [place] [phone] documented as of this encounter Visit Diagnoses Not on filedocumented in this encounter Care Teams Twisting Frame Fixer Relationship Specialty Start Date End Date Emigdio Veronica MD [address] [place] [phone] PCP - General Internal Medicine - Primary Care 05/22/20 02/21/24 Starr Paige MD [address] [place], [place] [phone] Hematology 10/08/21 06/09/22 Dana Padilla MD 111 [facility], [facility] 2 [place] [phone] Hematology 01/13/22 06/09/22 documented as of this encounter
--- OUTSIDE RECORDS SUMMARY | 2024-11-22 17:06 | XMS_ITS | Encounter Summary ---
Author Organization [facility] Address [address] [place] [address] Care Team Providers Care Examination Scorer Name Role Phone Emigdio Veronica MD Primary Care Provider + Starr Paige MD Unavailable [phone] Dana Padilla MD Unavailable Reason for Visit * Reason Comments Community Health Team Encounter Details Date Type Department Care Team (Late st Contact Info) Description 03/05/2022 Community Health Team [facility] Adult Primary Care - [place] 2 [place] [address] Izabella Snowden, [facility] 1 [facility], 3rd [place] [address] Social History Tobacco Use Types [...] 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 Date:?03.05.22 [employer] Work [employer] Internship encounter with patient by phone for counseling referral, original referralfrom?Dr. Emigdio Veronica. Patient had a visitor so needed to end appointment early-youth care worker will reach out again to schedule further follow up. TOPIC OF CONVERSATION: Engaged patient in conversation related to positive behavior change, self- management, goal setting and action planning using motivational interviewing and active listening.?? Patient has previously worked with [facility] Social workers Lucille Carcamo and Doris Joseph for assistance in accessing resources and for supportive counseling. [place] lives [place]rent[place] room with friends. Feels safe and supported in her housing situation. Patient has a son in [place], daughter in [place] and a daughter in [facility].Sister in [place] and a brother out of [employer]. Patient has been on SSDI disability since 1999. She also receives 3 squares food assistance. Patient does not have a vehicle and does not drive-relies on others for transporation. 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 Patient reports that she has been experiencing increased anxiety and panic attacks in the context of chronic medical conditions which include Cirrhosis, Blood Clotting DisorderAsthma, COPD, Chronic pain. Patient would like to get connected to counseling for support and assistance in managing anxiety. She reports previous counseling with someone through [facility]. She does not recall the name-but her chart indicates that she has worked previously with [facility] social workers. Insurance is Medicare/Medicaid. Patient is seeking telephone appts because she does not have accessto technology to do virtual appts and transportation is a barrier for her. In terms of accessing a community mental health counselor I'm not entirely sure about her insurancecovering telephone visits and/or there might be a requirement for at least an initial face to face visit. Let patient Know that I would need to check on this to see what the options are. Patient had a visitor so needed to end appointment early-youth care worker will reach out again to schedule further follow up, finish intake and provide her with more info on the insurance coverage piece. If insurance and transportation continue to be a barrier will discuss with her providing supportivecounseling sessions through social work. Also check into [facility] for transport? PLAN:? Patient had to end appointment early as she had a visitor. This video game script writer will check on Insurance info and call patient back to discuss options for moving forward with counseling. Check to see if she is able to access [facility] transport. .. Adult Primary Care [address], [address], [place] Total Time: 20 minutes phone call, 15 minutes documentation Referral: Pending Follow up: Erika to reach back out to patient to set up follow up appointment as patient needed to end visit early. Status: Active documented in this encounter Plan of Treatment Upcoming Encounters Date Type Department Care Team (Late st Contact Info) Description 01/04/2025 13:00 EST Office Visit [facility] Ophthalmology - [address] [phone] Gagandeep Rome MD [address] [place] [address], [facility] 5 [place] [phone] 02/11/2025 13:30 EDT Telemedicine [facility] Hematology & Oncology - [address] [phone] Dana Padilla MD [address] [place] [address], [facility] 2 [place] [address] documented as of this encounter Visit Diagnoses Not on filedocumented in this encounter Care Teams Examination Scorer Relationship Specialty Start Date End Date Emigdio Veronica MD 2 [place] [phone] PCP - General Internal Medicine - Primary Care 05/22/20 02/21/24 Starr Paige MD [address] [place] [phone] Hematology 10/08/21 06/09/22 Dana Padilla MD 111 [facility], Level 2 [place] [phone] Hematology 01/13/22 06/09/22 documented as of this encounter
--- OUTSIDE RECORDS SUMMARY | 2024-11-22 17:06 | XMS_ITS | Encounter Summary ---
Author Organization [facility] Address [address] [place] [address] Care Team Providers Care Help Desk Consultant Name Role Phone Emigdio Veronica MD Primary Care Provider + Starr Paige MD Unavailable [phone] Dana Padilla MD Unavailable Reason for Visit * Reason Onset Date Comments DME 02/23/2022 Encounter Details Date Type Department Care Team (Late st Contact Info) Description 02/23/2022 Telephone [facility] Adult Primary Care - [place] [address] [place] [address] Emigdio Veronica MD 2 [place] [phone] DME Social History Tobacco Use Types Packs/Day [...] 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 Pt was also transferred to [facility] to schedule appt. Script, demos/insurance, 02/17/22 OV notes, & 11/27/20 sleep study faxed to [facility] at [phone]. documented in this encounter Plan of Treatment Upcoming Encounters Date Type Department Care Team (Late st Contact Info) Description 01/04/2025 13:00 EST Office Visit [facility] Ophthalmology - [address] [phone] Gagandeep Rome MD [address] [place] [address] 5 [place] [phone] 02/11/2025 13:30 EDT Telemedicine [facility] Hematology & Oncology - [address] [phone] Dana Padilla MD [address] [place] [address], [facility] 2 [place] [phone] documented as of this encounter Visit Diagnoses Not on filedocumented in this encounter Care Teams Help Desk Consultant Relationship Specialty Start Date End Date Emigdio Veronica MD [address] [place] [phone] PCP - General Internal Medicine - Primary Care 05/22/20 02/21/24 Starr Paige MD [address] [place] [address] Hematology 10/08/21 06/09/22 Dana Padilla MD 111 [facility] 2 [place] [phone] Hematology 01/13/22 06/09/22 documented as of this encounter
--- OUTSIDE RECORDS SUMMARY | 2024-11-22 17:06 | XMS_ITS | Encounter Summary ---
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 Also, that she plans to follow-up with her doctor regarding this. She also shared that she was recentlydischarged from the hospital. The patient has no other PT appts scheduled at this time. Wanda Salmon 02/17/2022 documented in this encounter Plan of Treatment Upcoming Encounters Date Type Department Care Team (Late st Contact Info) Description 01/04/2025 13:00 EST Office Visit [facility] Ophthalmology - [address] [address] Gagandeep Rome MD [address] [place] [address], [facility] 5 [place] [phone] 02/11/2025 13:30 EDT Telemedicine [facility] Hematology & Oncology [address] [phone] Dana Padilla MD [address] [place] [address], [facility] 2 [place] [address] documented as of this encounter Visit Diagnoses Not on filedocumented in this encounter Care Teams Service Secretary Relationship Specialty Start Date End Date Emigdio Veronica MD [address] [place] [phone] PCP - General Internal Medicine - Primary Care 05/22/20 02/21/24 Starr Paige MD [address] [place] [phone] Hematology 10/08/21 06/09/22 Dana Padilla MD 111 [facility], Level 2 [place] [phone] Hematology 01/13/22 06/09/22 documented as of this encounter
--- OUTSIDE RECORDS SUMMARY | 2024-11-22 17:06 | XMS_ITS | Encounter Summary ---
Author Organization [facility] Address [address] [place] [address] Care Team Providers Care Art Model Name Role Phone Emigdio Veronica MD Primary Care Provider + Starr Paige MD Unavailable [phone] Dana Padilla MD Unavailable Reason for Visit * Reason Comments Hospital Discharge Follow Up Back Pain was told in the hosp ital she has a UTI Sleep Apnea Encounter Details Date Type Department Care Team (Late st Contact Info) Description 02/17/2022 10:00 EDT Office Visit [facility] Adult Primary Care - [place] [address] [place] [address] Emigdio Veronica MD [address] [place] [address] Syncope, unspecified syncope type (Primary Dx); Other hypervolemia; HUEY (obstructive sleep apnea); Portal vein thrombosis; Anxiety; Left flank pain Social History Tobacco Use Types Packs/Day Years Used Date Smoking Tobacco: Some Days Cigarettes 0.3 35 Started: 08/20/1981; Last attempted to quit: 08/20/2016 Smokeless Tobacco: Never Tobacco Cessation:Ready to Q uit: Yes; Counseling Given: Yes Comments:one to two cigarettes per week, 01/11/22- Alcohol Use Standard Drinks/Week [...] 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 Not on file Not o n file documented as of this encounter Last Filed Vital Signs Vital Sign Reading Time Taken Comments Blood Pressure 96/53 02/17/2022 0957 EDT Pulse 80 02/17/2022 0957 EDT r Temperature 36.4 ??C (97.5 ??F) 02/17/2022 0957 EDT Respiratory Rate 16 02/17/2022 0957 EDT Oxygen Saturation - - Inhaled Oxygen Concentration - - Weight 108.9 kg (240 lb) 02/17/2022 0957 EDT Height - - Body Mass Index 41.18 02/10/2022 1824 EDT documented in this encounter [...] Instructions * Patient Instructions* Ashley Weems - 02/17/2022 10:00 EDT Quitting smoking Stopping smoking is the [...] with a trained counselor. Tobacco Counseling in [facility] offers free counseling services to residents who are ready to cut back or quit using tobacco. Services include: phone coaching (2-268-WYHW-NOW), online tools and support for those who would like to make changes on their own (www.SMASHsolar.Geosophic), as well as in-person group workshops. Free nicotine replacement therapy is available through all of these resources. To learn more about your options visit www.SavvySystemsQuZaizher.im.org or call 8-852-YVCO-NOW ( ). To speak with an in-person tobacco counselor in [facility] call, [phone]. [place] Resident, please visit: [email or web address] I hope you quit smoking. I think it's the best thing you can do for your health. Please call our office if you have any questions. documented in this encounter Ordered Prescriptions Prescription Sig Dispense Quantity Refills Last Filled Start Date End Date sertraline (ZOLOFT) 100 mg tablet Take 1 Tablet by mouth daily. 1 Tablet 02/17/2022 06/18/2022 documented in this encounter Progress Notes * Emigdio Veronica MD - 02/17/2022 1000 EDT Tara Yun is a 61 y.o. female with a PMHx of QUIROZ cirrhosis, portal thrombosis PRIMARY CARE PROVIDER: Emigdio Veronica CHIEF COMPLAINT: Chief Complaint Patient presents with ??? Hospital Discharge Follow Up ??? Back Pain was told in the hospital she has a UTI ??? Sleep Apnea SUBJECTIVE: Tara Yun presents today for a post hospitalization visit. Gena recently presented to our office last week for an acute visit for malaise and had a syncopal event. She was transported to the ED via EMS and received an extensive work-up for apparent hypotension and abdominal pain including a CTA abdomen and pelvis scan that demonstrated unchanged levels of chronic portal venous thrombosis and a with new small area of active arterial extravascularization. Per interventional radiology this extravascularization was not consistent with her symptoms of hypotension. She was ultimately admitted to the internal medicine service with hematology consultation on 02/10/2022. Her prior to admission diuretics of spironolactone 75 mg daily and Lasix 40 mg daily were held as well as her apixaban. Her vitals remained normal throughout her admission and per the inpatient internal medicine service she conceded that she has been non-compliant with her previously recommended CPAP therapy for severe HUEY instead relying solely on nocturnal O2. She was heavily encouraged to reestablish with sleep medicine and restart CPAP therapy on discharge. Hematology advised continue to hold apixaban until she was able to follow-up with their service as an outpatient and she was discharged on 02/12/22. Bill states that her weights off of her diuretics and ady to 236 pounds on discharge. Today she appears fatigued and notes that she has not slept since leaving the hospital. She confirms she no longer has a CPAP machine. Per chart review it appears that she no showed her initial new patient visit with the [facility] sleep center in February 2021. She notably did complete a sleep study in November 2020 that demonstrated mild HUEY though the report did note that due to her continued use of nocturnal O2 during the duration of the study her HUEY was likely underestimated in terms ofits severity. We discussed that based on these results we are justified in ordering an auto-pap CPAP device for now, but we discussed that she would still need to see sleep medicine for further evaluation of its efficacy. She states that her weight has increased to 240 pounds since discharge. She is noting worsening lower extremity edema and abdominal ascites at this time. She confirms that she received our office message yesterday and has recently restarted her spironolactone at 50 mg daily. She is willing to carefully monitor her weights moving forward we discussed that given her tenuous balance between painful edema and hypotension with pre-syncope we will have to be judicious with her diuretics going forward. She expresses understanding of this reality. She notes one additional complaint at this time of worsening left-sided flank pain and she is willing to complete her POTC U/A today. She notably has a history of nephrolithiasis and believes that she may have another kidney stone currently. It is worth noting that no stones were appreciated on herrecent CTA abdomen and pelvis scan. The setting of her worsening health concerns she also notes increased generalized anxiety. She notes that she is yet to establish with a community therapist and would be willing to receive a community health team referral to locate one. ROS as above Medications and history reviewed. [...] mL (0.083 %) nebulizer solution OBJECTIVE: BP 96/53 (BP Cuff Location: Left arm, BP Patient Position: Sitting, BP Cuff Sizes: Adult, regular) Pulse 80 Comment: r Temp 36.4 ??C (97.5 ??F) (Tympanic) Resp 16 Wt (!) 108.9 kg (240 lb) BMI 41.18 kg/m?? Gen: Chronically ill appearing middle-age female, NAD HEENT: EOMI, PERRL, conjunctiva pink, no scleral injection/ icterus CV: RRR, no murmurs, rubs or gallops Pulm: CTAB, good air movement, no wheezes, rales, or rhonchi Abd: +BS, soft, NT, ND, no hepatosplenomegaly Back: Positive CVA tenderness on left Extrem: +2 pitting edema in bilateral lower extremities up to knees, warm and well perfused Skin: No rashes or erythema, intact Neuro: A&Ox3, CN II through XII grossly intact Recent Labs/Imaging: Reviewed in epic ASSESSMENT and PLAN: Tara was seen today for hospital discharge follow up, back pain and sleep apnea. Diagnoses and all orders for this visit: Syncope, unspecified syncope type, Other hypervolemia: Syncopal episode believed to be multifactorial in nature. Partially triggered by hypotension in the setting of diuresis for patient's hypervolemia in setting of cirrhosis. Now up four pounds since diuretics held on discharge. - Continue spirolactone 50 mg daily - Encouraged daily weights - Should weight rise further would have a low threshold for restarting lasix at 20 mg daily - Advised that the patient should expect to have some degree of painful edema moving forward. Patient has repeatedly run into complications (MUSA, dizziness, syncope) with aggressive diuresis in the past. HUEY (obstructive sleep apnea): Inadequately controlled with nocturnal O2. Agree with inpatient service on the importance of CPAP therapy adherence. - AMB CONS/FOLLOW UP SLEEP MEDICINE; Future - Will attempt to prescribe an auto-titrating CPAP machine Portal vein thrombosis: [place] unchanged on recent imaging. Following with hematology. Currently not taking apixaban in setting of newly appreciated, but small arterial extravascularization near portal vein thrombosis on imaging. - Continue to hold apixaban - Follow-up with hematology as scheduled Anxiety: Poorly controlled - AMB CONS/FOLLOW UP MEDICAL HOME CARE MANAGEMENT; Future Left flank pain - POCT URINE CLINITEK (DIPSTICK) - DOES NOT REFLEX Other orders - spironolactone (ALDACTONE) 50 mg tablet; Take 50 mg by mouth daily. - sertraline (ZOLOFT) 100 mg tablet; Take 1 Tablet by mouth daily. F/u: Return in about 1 month (around 03/20/2022) for Congestive Heart Failure. I spent a total of 45minutes with this patient today face to face, in chart review and in documentation and 40 minutes of that time was spent on education and counseling for syncope, hypervolemia, HUEY, portal vein thrombosis, anxiety, left flank pain. Some of this note was transcribed with RainKing dictating software. While it was proofread, it may still contain unnoticed grammatical or word errors due to incorrect transcribing. Emigdio Veronica MD 02/19/2022 9:52 * Ashley Weems - 02/17/2022 1000 EDT poct urine dipstick ran today I was supervised by dr. Veronica who was present and immediately available in the office suite. Ashley Weems 02/17/2022 11:06 documented in this encounter Plan of Treatment Upcoming Encounters Date Type Department Care Team (Late st Contact Info) Description 01/04/2025 13:00 EST Office Visit [facility] Ophthalmology - [address] [phone] Gagandeep Rome MD [address] [facility], [address] [place] [address] 02/11/2025 13:30 EDT Telemedicine [facility] [place] [facility] & Oncology - [address] [phone] Dana Padilla MD [address] [facility], [address] [place] [phone] documented as of this encounter Procedures Procedure Name Priority Date/Time Associated Diagnosis Comments POCT URINE DIPSTICK, CLINITEK Routine 02/17/2022 11:04 EDT Left flank pain POCT CSN BARCODE URINE DIPSTICK Routine 02/17/2022 10:53 EDT Left flank pain POCT URINE CLINITEK (DIPSTICK) - DOES NOT REFLEX Routine 02/17/2022 10:53 EDT Left flank pain documented in this encounter Results * (ABNORMAL) POCT URINE DIPSTICK, CLINITEK (02/17/2022 11:04 EDT) Color, UA Yellow Yellow 02/17/2022 11:06 EDT [facility] Clarity, UA Clear Clear 02/17/2022 11:06 EDT [facility] Glucose, UA Negative Negative mg/dL 02/17/2022 11:06 EDT [facility] Bilirubin, UA Negative Negative 02/17/2022 11:06 EDT [facility] Ketones, UA Negative Negative mg/dL 02/17/2022 11:06 [facility] Specific [place], Urine 1.020 1.001 - 1.035 02/17/2022 11:06 [facility] Blood, UA 3+(A) Negative 02/17/2022 11:06 [facility] pH, UA 6.0 <=8 02/17/2022 11:06 [facility] Protein, UA Negative Negative mg/dL 02/17/2022 11:06 [facility] Urobilinogen, UA 0.2 0.2 - 1.0 EU/dL 02/17/2022 11:06 [facility] Nitrite, UA Negative Negative 02/17/2022 11:06 [facility] Leuk Esterase Negative Negative 02/17/2022 11:06 [facility] HN LAB COMMENT (CLINITEK, UR) Test performed at [facility] 02/17/2022 11:06 EDT [facility] Urine URINE SPECIMEN COLLECTION, CLEAN CATCH / Unknown 02/17/2022 11:04 EDT 02/17/2022 11:05 EDT Emigdio Veronica MD POINT OF CARE TEST ORDER YANN Final Result Performing Organization Address [facility] Co de Phone Number [facility] [address] [place] [address] * POCT CSN BARCODE URINE DIPSTICK (02/17/2022 10:53 EDT) Urine URINE SPECIMEN COLLECTION, CLEAN CATCH / Unknown 02/17/2022 10:53 EDT 02/17/2022 10:53 EDT us Emigdio Veronica MD LAB INFO SERVICE AND SUP PORT & PHONE RESULT Final Result Performing Organization Address City/[facility]/ZIP Co de Phone Number [facility] [address] [place] [address] documented in this encounter Visit Diagnoses Diagnosis Syncope, unspecified syncope type- Primary Other hypervolemia HUEY (obstructive sleep apnea) Obstructive sleep apnea (adult) (pediatric) Portal vein thrombosis Anxiety Anxiety state, unspecified Left flank pain Abdominal pain, unspecified site documented in this encounter Discontinued Medications Medication Sig Discontinue Reason Start Date End Da te sertraline (ZOLOFT) 50 mg tablet TAKE 1 TABLET BY MOUTH EVERY DAY Dose adjustment 10/06/2021 02/17/2022 documented as of this encounter Historical Medications * This list may reflect changes made after this encounter. spironolactone (ALDACTONE) 50 mg tablet Take 50 mg by mouth daily. 03/10/2022 added in this encounter Orders Equipment Count Last Ordered Date First Orde red Date CPAP/BIPAP MACHINE ORDER 1 02/19/2022 documented in this encounter Care Teams Art Model Relationship Specialty Start Date End Date Emigdio Veronica MD [address] [place] [phone] PCP - General Internal Medicine - Primary Care 05/22/20 02/21/24 Starr Paige MD [address] [place] [phone] Hematology 10/08/21 06/09/22 Dana Padilla MD [address] [facility] [address] [place] [phone] Hematology 01/13/22 06/09/22 documented as of this encounter
--- OUTSIDE RECORDS SUMMARY | 2024-11-22 17:06 | XMS_ITS | Encounter Summary ---
Author Organization [facility] Address [address] [place] [address] Care Team Providers Care Platform Material Handling Supervisor Name Role Phone Emigdio Veronica MD Primary Care Provider + Starr Paige MD Unavailable [phone] Dana Padilla MD Unavailable Reason for Visit * Vascular Lab (Routine/Next Available) - Authorization Not Required Specialty Diagnoses / Procedures [facility] Referred To Contact Diagnoses Hypercoagulable state (HCC-CMS) Bilateral leg edema Procedures US LOWER VENOUS DUPLEX Dana Padilla MD Phone: tel: fax: Referral ID Status Reason Start Date Expiration Date Visits Requested Visits Authorized [id number] Authorization Not Required 02/22/2022 1 1 Encounter Details Date Type Department Care Team (Latest Contact Info) Description 02/26/2022 8:30 EDT Ancillary Procedure Vascular Surgery and Endovascular Therapy - [address] [phone] Hypercoagulable state (HCC-CMS) (HCC) (HCC-CMS); Bilateral leg edema Social History Tobacco Use [...] Industry 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 Not on [...] [facility] Op[facility] - [address] [phone] Gagandeep Rome MD [address] [place] [address] [address] [place] [address] 02/11/2025 13:30 EDT Telemedicine [facility] Hematology & Oncology [address] [phone] Dana Padilla MD [address] [place] [address], [facility] [address] [place] [phone] documented as of this encounter Procedures Procedure Name Priority Date/Time Associated Diagnosis Comments US LOWER VENOUS DUPLEX (DVT) BILATERAL Routine 02/26/2022 8:53 EDT Hypercoagulable state (HCC-CMS) (HCC) (HCC-CMS) Bilateral leg edema documented in this encounter Results * US [...] Medical History Tobacco use and Anticoagulation therapy. Dana Padilla MD [facility] VASCULAR ORDERABLES Final Result documented in this encounter Visit Diagnoses Diagnosis Hypercoagulable state (HCC-CMS) Primary hypercoagulable state Bilateral leg edema Edema documented in this encounter Care Teams Platform Material Handling Supervisor Relationship Specialty Start Date End Date Emigdio Veronica MD [address] [place] [phone] PCP - General Internal Medicine - Primary Care 05/22/20 02/21/24 Starr Paige MD [address] [place] [phone] Hematology 10/08/21 06/09/22 Dana Padilla MD [address] [place] [address] [address] [place] [address] Hematology 01/13/22 06/09/22 documented as of this encounter
--- OUTSIDE RECORDS SUMMARY | 2024-11-22 17:07 | XMS_ITS | Encounter Summary ---
Author Organization [facility] Address [address] [place] [address] Care Team Providers Care Core Laying Machine Operator Name Role Phone Emigdio Veronica MD Primary Care Provider + Starr Paige MD Unavailable [phone] Dana Padilla MD Unavailable Reason for Visit * Reason Onset Date Comments Discuss Surgery 01/21/2022 Results 01/21/2022 Encounter Details Date Type Department Care Team (Late st Contact Info) Description 01/21/2022 Telephone [facility] Hematology & Oncology - [address] [address] Dana Padilla MD [address] [place] [address], [address] [place] [address] Discuss Surgery; Results Social History Tobacco Use Types Packs/Day [...] 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 Answer Date of Assessment Author No 12/14/2021 13:03 EST Tash Huang RN * Are you blind or do you have serious difficulty seeing, even when wearing glasses? Answer Date of Assessment Author No 11/03/2021 16:08 EST Isabel Santiago RN * Do you have serious difficulty walking or climbing stairs? (5 years old or older) Answer Date of Assessment Author No 11/03/2021 16:08 Isabel Jimenez RN * Do you have difficulty dressing or bathing? (5 years old or older) Answer Date of Assessment Author No 11/03/2021 16:08 Isabel Jimenez RN * Because of a physical, mental, or emotional condition, do you have difficulty doing errands alone such as visiting a doctor's office or shopping? (15 years old or older) Answer Date of Assessment Author No 11/03/2021 16:08 Isabel Jimenez RN documented as of this encounter Mental Status * Because of a physical, mental, or emotional condition, do you have serious difficulty concentrating, remembering, or making decisions? (5 years old or older) Answer Entry Date Author No 11/03/2021 16:08 Isabel Jimenez RN documented in this encounter Miscellaneous Notes * Telephone Encounter - Zora Page - 01/21/2022 1866 EST Patient calling, says she has been waiting to hear back about results to labs. Patient is also scheduled for oral surgery 02/08 and is wondering if her labs are too low at this time to keep appt? Would also like to know if there are any further instructions she should be aware of before surgery? Please call back to discuss documented in this encounter Plan of Treatment Upcoming Encounters Date Type Department Care Team (Late st Contact Info) Description 01/04/2025 13:00 EST Office Visit [facility] Ophthalmology - [address] [phone] Gagandeep Rome MD [address] [place] [address], [facility] [address] [place] [address] 02/11/2025 13:30 EDT Telemedicine [facility] Hematology & Oncology [address] [address] Dana Padilla MD [address] [place] [address], [facility] [address] [place] [phone] documented as of this encounter Visit Diagnoses Not on filedocumented in this encounter Care Teams Core Laying Machine Operator Relationship Specialty Start Date End Date Emigdio Veronica MD [address] [place] [phone] PCP - General Internal Medicine - Primary Care 05/22/20 02/21/24 Starr Paige MD [address] [place] [phone] Hematology 10/08/21 06/09/22 Dana Padilla MD [address] [facility], [address] [place] [address] Hematology 01/13/22 06/09/22 documented as of this encounter
--- OUTSIDE RECORDS SUMMARY | 2024-11-22 17:07 | XMS_ITS | Encounter Summary ---
Author Organization [facility] Address [address] [place] [address] Care Team Providers Care Fitness Sales Consultant Name Role Phone Emigdio Veronica MD Primary Care Provider + Starr Paige MD Unavailable [phone] Dana Padilla MD Unavailable Encounter Details Date Type Department Care Team (Late st Contact Info) Description 01/28/2022 Orders Only [facility] Hematology & Oncology - [facility] [address], [place] [address] Maritza Miller, RN [address] [place] [address] Thrombocytopenia (HCC-CMS) (HCC) (Primary Dx) Social History Tobacco Use Types [...] 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 Answer Date of Assessment Author No 11/03/2021 16:08 EST Isabel Santiago RN * Do you have serious difficulty walking or climbing stairs? (5 years old or older) Answer Date of Assessment Author No 11/03/2021 16:08 EST Isabel Santiago RN * Do you have difficulty dressing or bathing? (5 years old or older) Answer Date of Assessment Author No 11/03/2021 16:08 EST Isabel Santiago RN * Because of a physical, mental, [...] Isabel Jimenez RN documented in this encounter Plan of Treatment Upcoming Encounters Date Type Department Care Team (Late st Contact Info) Description 01/04/2025 13:00 EST Office Visit [facility] Ophthalmology [address] [phone] Gagandeep Rome MD [address] [place] [address], [facility] [address] [place] [phone] 02/11/2025 13:30 EDT Telemedicine [facility] Hematology & Oncology [address] [phone] Dana Padilla MD [address] [place] [address], [facility] [address] [place] [phone] documented as of this encounter Results * (ABNORMAL) COMPLETE BLOOD COUNT (02/01/2022 8:47 EDT) WBC 3.17(L) 4.00 - 12.40 K/cmm 02/01/2022 9:13 EDT [facility] RBC 3.66(L) 3.86 - 5.04 M/cmm 02/01/2022 9:13 EDT [facility] Hemoglobin 10.4(L) 11.6 - 15.2 gm/dL 02/01/2022 9:13 EDT [facility] HCT 31.7(L) 34.9 - 44.4 % 02/01/2022 9:13 EDT [facility] MCV 87 81 - 98 fl 02/01/2022 9:13 EDT [facility] MCH 28.4 26.7 - 33.3 pg 02/01/2022 9:13 EDT [facility] MCHC 32.8 32.1 - 35.9 gm/dL 02/01/2022 9:13 EDT [facility] RDW-CV 17.8(H) <14.7 % 02/01/2022 9:13 EDT [facility] RDW-SD 57.1(H) <50.4 fl 02/01/2022 9:13 EDT [facility] PLT 115(L) 141 - 377 K/cmm 02/01/2022 9:13 EDT [facility] MPV 9.3(L) 9.5 - 12.7 fl 02/01/2022 9:13 EDT [facility] Blood VENOUS BLOOD / Unknown Venipuncture / Unknown 02/01/2022 8:47 EDT 02/01/2022 8:47 EDT Dana Padilla MD HEMATOLOGY & PF4 ORDERABLES Pricila l Result [facility] [address] [place] [address] documented in this encounter Visit Diagnoses Diagnosis Thrombocytopenia ([facility])- Primary Thrombocytopenia, unspecified documented in this encounter Care Teams Fitness Sales Consultant Relationship Specialty Start Date End Date Emigdio Veronica MD [address] [place] [phone] PCP - General Internal Medicine - Primary Care 05/22/20 02/21/24 Starr Paige MD [address] [facility] [place] [phone] Hematology 10/08/21 06/09/22 Dana Padilla MD 111 [facility], [facility] [address] [place] [phone] Hematology 01/13/22 06/09/22 documented as of this encounter
--- OUTSIDE RECORDS SUMMARY | 2024-11-22 17:07 | XMS_ITS | Encounter Summary ---
Author Organization [facility] Address [address] [place] [address] Care Team Providers Care Wire Mesh Filter Fabricator Name Role Phone Emigdio Veronica MD Primary Care Provider + Starr Paige MD Unavailable [phone] Dana Padilla MD Unavailable Encounter Details Date Type Department Care Team (Late st Contact Info) Description 01/19/2022 9:00 EST Phlebotomy Only [facility] Laboratory Services - [address] [address] [facility] Portal vein thrombosis; Upper GI bleed; Thrombocytopenia ([facility]) ([facility]) Social History Tobacco Use Types Packs/Day Years [...] 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 (5 years old or older) Answer Entry Date Author No 11/03/2021 16:08 EST Isabel Santiago RN documented in this encounter Plan of Treatment Upcoming Encounters Date Type Department Care Team (Late st Contact Info) Description 01/04/2025 13:00 EST Office Visit [facility] Ophthalmology [address] [phone] Gagandeep Rome MD [address] [place] [address] 5 [place] [phone] 02/11/2025 13:30 EDT Telemedicine [facility] Hematology & Oncology [address] [phone] Dana Padilla MD [address] [place] [address], [facility] 2 [place] [phone] documented as of this encounter Procedures Procedure Name Priority Date/Time Associated Diagnosis Comments COMPLETE BLOOD COUNT AND DIFFERENTIAL Routine 01/19/2022 9:04 EST Portal vein thrombosis Thrombocytopenia (HCC-CMS) (HCC) documented in this encounter Results * (ABNORMAL) COMPLETE BLOOD COUNT AND DIFFERENTIAL (01/19/2022 9:04 EST) WBC 3.04(L) 4.00 - 12.40 K/cmm 01/19/2022 10:47 EST [facility] RBC 3.97 3.86 - 5.04 M/cmm 01/19/2022 10:47 EST [facility] Hemoglobin 10.9(L) 11.6 - 15.2 gm/dL 01/19/2022 10:47 EST [facility] HCT 34.3(L) 34.9 - 44.4 % 01/19/2022 10:47 [facility] MCV 86 81 - 98 fl 01/19/2022 10:47 [facility] MCH 27.5 26.7 - 33.3 pg 01/19/2022 10:47 [facility] MCHC 31.8(L) 32.1 - 35.9 gm/dL 01/19/2022 10:47 [facility] RDW-CV 17.7(H) <14.7 % 01/19/2022 10:47 [facility] RDW-SD 56.6(H) <50.4 fl 01/19/2022 10:47 [facility] PLT 102(L) 141 - 377 K/cmm 01/19/2022 10:47 [facility] MPV 10.2 9.5 - 12.7 fl 01/19/2022 10:47 [facility] % Neutrophils 75.4 % 01/19/2022 10:47 [facility] % Lymphocytes 9.5 % 01/19/2022 10:47 [facility] % Monocytes 11.2 % 01/19/2022 10:47 [facility] % Eosinophils 3.3 % 01/19/2022 10:47 [facility] % Basophils 0.3 % 01/19/2022 10:47 [facility] % Immature Grans 0.3 % 01/20/20 10:47 [facility] Absolute Neutrophils 2.29 2.20 - 8.85 K/cmm 01/19/2022 10:47 [facility] Absolute Lymphocytes 0.29(L) 1.09 - 3.30 K/cmm 01/19/2022 10:47 [facility] Absolute Monocytes 0.34 0.10 - 0.80 K/cmm 01/19/2022 10:47 [facility] Absolute Eosinophils 0.10 0.03 - 0.61 K/cmm 01/19/2022 10:47 [facility] ABS Basophils 0.01 0.01 - 0.11 K/cmm 01/19/2022 10:47 EST [facility] Absolute Immature Grans 0.01 0.00 - 0.06 K/cmm 01/19/2022 10:47 EST [facility] Type of Differential: Auto 01/19/2022 10:47 EST [facility] Blood VENOUS BLOOD / Unknown Venipuncture / Unknown 01/19/2022 9:04 EST 01/19/2022 9:06 EST us Dana Padilla MD PACKAGES & DNA PROBE ORDERABLES Final Result [facility] [address] [place] [address] documented in this encounter Visit Diagnoses Diagnosis Portal vein thrombosis Upper GI bleed Hemorrhage of gastrointestinal tract, unspecified Thrombocytopenia ([facility]) Thrombocytopenia, unspecified documented in this encounter Care Teams Wire Mesh Filter Fabricator Relationship Specialty Start Date End Date Emigdio Veronica MD [address] [place] [phone] PCP - General Internal Medicine - Primary Care 05/22/20 02/21/24 Starr Paige MD [address] [place] [phone] Hematology 10/08/21 06/09/22 Dana Padilla MD 111 [facility] 2 [place] [phone] Hematology 01/13/22 06/09/22 documented as of this encounter
--- OUTSIDE RECORDS SUMMARY | 2024-11-22 17:07 | XMS_ITS | Encounter Summary ---
Author Organization [facility] Address [address] [place] [address] Care Team Providers Care Print Shop Stenographer Name Role Phone mEigdio Veronica MD Primary Care Provider + Starr Paige MD Unavailable [phone] Dana Padilla MD Unavailable Encounter Details Date Type Department Care Team (Latest Contact Info) Description 02/04/2022 15:15 EDT - 02/04/2022 23:59 EDT [address] En[address] [facility] [address] [place] [address] Right knee pain, unspecified chronicity; S/P total knee arthroplasty, right; Left knee pain, unspecified chronicity; S/P total knee arthroplasty, left Discharge Disposition: Home or Self Care Social [...] 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 60 Tablet 2 11/25/2021 2 apixaban (ELIQUIS) 2.5 mg tabletIndications:Po rtal vein thrombosis,Superior mesenteric vein thrombosis (HCC-CMS),Primary hypercoagulable state (HCC-CMS) Take 1 Tablet by mouth 2 times daily. 60 Tablet 6 12/16/2021 2 ferrous sulfate 324 mg (65 mg iron) tablet,delayed release (DR/EC) Take 1 Tablet by mouth every 48 hours. 30 Tablet 3 11/11/2021 2 furosemide (LASIX) 20 mg tablet TAKE 2TAB BY MOUTH EVERY MORNING 180 Tablet 1 01/27/2022 2 levothyroxine (SYNTHROID) 25 mcg tablet Take [...] NEEDED FOR NAUSEA. 21 Tablet 12/21/2021 2 oxyCODONE (ROXICODONE) 5 mg immediate release tablet Take 1 Tablet by mouth 3 times daily as needed for up to 28 days for Pain. Daily Max: 15 mg 84 Tablet 01/20/2022 2 pantoprazole (PROTONIX) 40 mg tablet Take 1 Tablet by mouth 2 times daily. 30 Tablet 3 01/05/2022 2 sertraline (ZOLOFT) 50 mg tablet TAKE 1 TABLET BY MOUTH EVERY DAY 90 Tablet 1 10/06/2021 2 spironolactone (ALDACTONE) 50 mg tablet Take 1.5 Tablets by mouth daily for 90 days. 135 Tablet 01/27/2022 2 sucralfate (CARAFATE) 1 gram tablet Take 1 Tablet by mouth 4 times daily. 120 Tablet 3 12/10/2021 2 SYMBICORT 160-4.5 mcg/actuation HFA aerosol inhaler inhalerIndications:C OPD with asthma ([facility]) INHALE 2 PUFFS DIRECTED DAILY. 10.2 Each 1 11/09/2021 2 traZODone (DESYREL) 150 mg tablet Take 2 Tablets by mouth at bedtime. 180 Tablet 1 12/10/2021 2 documented as of this encounter Discharge Disposition Disposition Code Departure Means Destination Home or Self Care documented in this encounter Plan of Treatment Upcoming Encounters Date Type Department Care Team (Late st Contact Info) Description 01/04/2025 13:00 EST Office Visit [facility] Ophthalmology - [address] [phone] Gagandeep Rome MD [address] [place] [address], Level [address] [place] [phone] 02/11/2025 13:30 EDT Telemedicine [facility] Cancer Center Hematology & Oncology - [address] [address] Dana Padilla MD 111 [facility], [facility], Level [address] [place] [phone] documented as of this encounter Procedures Procedure Name Priority Date/Time Associated Diagnosis Comments XR KNEE LEFT 1-2 VIEWS Routine 02/04/2022 15:55 EDT Left knee pain, unspecified chronicity S/P total knee arthroplasty, left documented in this encounter Results * XR KNEE LEFT 1-2 VIEWS (02/04/2022 15:55 EDT) Anatomical Region Laterality Modality Lower Extremities Left Computed Radio graphy 02/04/2022 17:1 3 EDT Impressions 02/04/2022 17:13 EDT FINDINGS / IMPRESSION: Left knee: 4 views redemonstrate postsurgical changes from a total knee arthroplasty, the components of the prosthesis appear in stable position, without evidence of failure or loosening. No periprosthetic fracture is identified either. Again noted as well is a screw in the anterior tibia tuberosity the from a remote distal realignment procedure of the extensor apparatus (i.e., tuberosity transfer), the screw also appears in stable position and intact. There is minimal fullness of the suprapatellar recess which may correspond to small amount of fluid and/or synovitis. Soft tissues are otherwise grossly unremarkable. There is osteopenia. Right knee: 3 views redemonstrate postsurgical changes from a total knee arthroplasty, the components of the 3 part knee prosthesis appear in stable position, without evidence of failure or loosening. No periprosthetic fracture is identified either. There is however a small suprapatellar right knee joint effusion. Soft tissues are otherwise grossly unremarkable. There is osteopenia. Narrative 02/04/2022 17:13 EDT EXAM/TECHNIQUE: XR KNEE LEFT 1-2 VIEWS, XR KNEE RIGHT 1-2 VIEWS ??02/04/2022 3:15 PM HISTORY: ?? Left knee pain COMPARISON: Radiographs of both knees dated January 11, 2019. Procedure Note Nahun Castellano MD - 02/04/2022 EXAM/TECHNIQUE: XR KNEE LEFT 1-2 VIEWS, XR KNEE RIGHT 1-2 VIEWS 02/04/2022 3:15 PM HISTORY: Left knee pain COMPARISON: Radiographs of both knees dated January 11, 2019. IMPRESSION FINDINGS / IMPRESSION: Left knee: 4 views redemonstrate postsurgical changes from a total kneearthroplasty, the components of the prosthesis appear in stable position,without evidence of failure or loosening. No periprosthetic fracture isidentified either. Again noted as well is a screw in the anterior tibiatuberosity the from a remote distal realignment procedure of the extensorapparatus (i.e., tuberosity transfer), the screw also appears in stableposition and intact. There is minimal fullness of the suprapatellar recesswhich may correspond to small amount of fluid and/or synovitis. Softtissues are otherwise grossly unremarkable. There is osteopenia. Right knee: 3 views redemonstrate postsurgical changes from a total kneearthroplasty, the components of the 3 part knee prosthesis appear instable position, without evidence of failure or loosening. Noperiprosthetic fracture is identified either. There is however a smallsuprapatellar right knee joint effusion. Soft tissues are otherwisegrossly unremarkable. There is osteopenia. Tatyana [place] NP IMG DIAGNOSTIC IMAGING ORDER YANN Final Result documented in this encounter Visit Diagnoses Diagnosis Right knee pain, unspecified chronicity S/P total knee arthroplasty, right Left knee pain, unspecified chronicity S/P total knee arthroplasty, left documented in this encounter Care Teams Print Shop Stenographer Relationship Specialty Start Date End Date Emigdio Veronica MD [address] [place] [phone] PCP - General Internal Medicine - Primary Care 05/22/20 02/21/24 Starr Paige MD [address] [place] [phone] Hematology 10/08/21 06/09/22 Dana Padilla MD 111 [facility], [facility] 2 [place] [phone] Hematology 01/13/22 06/09/22 documented as of this encounter
--- OUTSIDE RECORDS SUMMARY | 2024-11-22 17:07 | XMS_ITS | Encounter Summary ---
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 No / Unsure 12/14/2021 13:10 EST documented as of this encounter Functional [...] of Assessment Author No 11/03/2021 16:08 EST Isaebl Santiago RN * Do you have difficulty [...] Entry Date Author No 11/03/2021 16:08 EST Isaebl Santiago RN documented in this encounter Miscellaneous Notes * Telephone Encounter - Cris Stoll RN - 01/12/2022 1556 EST pantoprazole (PROTONIX) 40 mg tablet [[id number]] ?? Order Details Dose: 40 mg Route: oral Frequency: 2 TIMES DAILY Dispense Quantity: 30 Tablet Refills: 3 ?? Sig: Take 1 Tablet by mouth 2 times daily. ?? Start Date: 01/05/22 End Date: -- Written Date: 01/05/22 documented in this encounter Plan of Treatment Upcoming Encounters Date Type Department Care Team (Late st Contact Info) Description 01/04/2025 13:00 EST Office Visit [facility] Ophthalmology - [address] [phone] Gagandeep Rome MD [address] [place] [address] [address] [place] [phone] 02/11/2025 13:30 EDT Telemedicine [facility] Hematology & Oncology - [address] [phone] Dana Padilla MD [address] [place] [address], [facility] [place] [facility] [address] [place] [phone] documented as of this encounter Visit Diagnoses Not on filedocumented in this encounter Care Teams P D Driver Relationship Specialty Start Date End Date Emigdio Veronica MD [address] [place] [phone] PCP - General Internal Medicine - Primary Care 05/22/20 02/21/24 Starr Paige MD [address] [place] [phone] Hematology 10/08/21 06/09/22 documented as of this encounter
--- OUTSIDE RECORDS SUMMARY | 2024-11-22 17:07 | XMS_ITS | Encounter Summary ---
Author Organization [facility] Address [address] [place] [address] Care Team Providers Care Deck Molder Name Role Phone Emigdio Veronica MD Primary Care Provider + Starr Paige MD Unavailable [phone] Dana Padilla MD Unavailable Encounter Details Date Type Department Care Team (Late st Contact Info) Description 01/28/2022 10:15 EST Phlebotomy Only [facility] Laboratory Services - [address] [address] [facility] Portal vein thrombosis; Upper GI bleed; Thrombocytopenia ([facility] ([facility]) Social History Tobacco Use Types [...] 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 Not [...] Office Visit [facility] Ophthalmology - [address] [phone] Gagandeep Rome MD [address] [place] [address] 5 [place] [address] 02/11/2025 13:30 EDT Telemedicine [facility] Hematology & Oncology [address] [phone] Dana Padilla MD [address] [place] [address] 2 [place] [address] documented as of this encounter Procedures Procedure Name Priority Date/Time Associated Diagnosis Comments [facility] LAB CBC SMEAR REVIEW Today 01/28/2022 10:16 EST Portal vein thrombosis Thrombocytopenia (HCC-CMS) (HCC) COMPLETE BLOOD COUNT AND DIFFERENTIAL Routine 01/28/2022 10:16 EST Portal vein thrombosis Thrombocytopenia (HCC-CMS) (HCC) documented in this encounter Results * [facility] LAB CBC SMEAR REVIEW (01/28/2022 10:16 EST) Differential Comment Slide was examined by a technologist to verify the WBC and/or platelet count. 01/28/2022 11:21 EST [facility] Blood VENOUS BLOOD / Unknown Venipuncture / Unknown 01/28/2022 10:16 EST 01/28/2022 10:16 EST us Dana Padilla MD HEMATOLOGY & PF4 ORDERABLES Pricila suri Result [facility] [address] [place] [address] * (ABNORMAL) COMPLETE BLOOD COUNT AND DIFFERENTIAL (01/28/2022 10:16 EST) WBC 3.35(L) 4.00 - 12.40 K/cmm 01/28/2022 11:21 [facility] RBC 3.76(L) 3.86 - 5.04 M/cmm 01/28/2022 11:21 [facility] Hemoglobin 10.4(L) 11.6 - 15.2 gm/dL 01/28/2022 11:21 [facility] HCT 32.1(L) 34.9 - 44.4 % 01/28/2022 11:21 [facility] MCV 85 81 - 98 fl 01/28/2022 11:21 [facility] MCH 27.7 26.7 - 33.3 pg 01/28/2022 11:21 [facility] MCHC 32.4 32.1 - 35.9 gm/dL 01/28/2022 11:21 [facility] RDW-CV 17.8(H) <14.7 % 01/28/2022 11:21 [facility] RDW-SD 56.3(H) <50.4 fl 01/28/2022 11:21 [facility] PLT 01/28/2022 11:21 [facility] Comment:Unreportable due to presence of platelet clumps. MPV 01/28/2022 11:21 [facility] Comment:Not available. % Neutrophils 76.7 % 01/28/2022 11:21 [facility] % Lymphocytes 6.6 % 01/28/2022 11:21 [facility] % Monocytes 14.3 % 01/28/2022 11:21 [facility] % Eosinophils 1.5 % 01/28/2022 11:21 [facility] % Basophils 0.6 % 01/28/2022 11:21 [facility] % Immature Grans 0.3 % 01/29/20 11:21 [facility] Absolute Neutrophils 2.57 2.20 - 8.85 K/cmm 01/28/2022 11:21 [facility] Absolute Lymphocytes 0.22(L) 1.09 - 3.30 K/cmm 01/28/2022 11:21 [facility] Absolute Monocytes 0.48 0.10 - 0.80 K/cmm 01/28/2022 11:21 [facility] Absolute Eosinophils 0.05 0.03 - 0.61 K/cmm 01/28/2022 11:21 [facility] ABS Basophils 0.02 0.01 - 0.11 K/cmm 01/28/2022 11:21 [facility] Absolute Immature Grans 0.01 0.00 - 0.06 K/cmm 01/28/2022 11:21 [facility] Type of Differential: Auto 01/28/2022 11:21 [facility] Blood VENOUS BLOOD / Unknown Venipuncture / Unknown 01/28/2022 10:16 EST 01/28/2022 10:16 EST us Dana Padilla MD PACKAGES & DNA PROBE ORDERABLES Final Result [facility] [address] [place] [address] documented in this encounter Visit Diagnoses Diagnosis Portal vein thrombosis Upper GI bleed Hemorrhage of gastrointestinal tract, unspecified Thrombocytopenia (HCC-CMS) Thrombocytopenia, unspecified documented in this encounter Care Teams Deck Molder Relationship Specialty Start Date End Date Emigdio Veronica MD [address] [place] [phone] PCP - General Internal Medicine - Primary Care 05/22/20 02/21/24 Starr Paige MD [address] [place] [phone] Hematology 10/08/21 06/09/22 Dana Padilla MD 111 [facility], [facility] 2 [place] [address] Hematology 01/13/22 06/09/22 documented as of this encounter
--- OUTSIDE RECORDS SUMMARY | 2024-11-22 17:07 | XMS_ITS | Encounter Summary ---
Author Organization [facility] Address [address] [place] [address] Care Team Providers Care Upholstery Estimator Name Role Phone Emigdio Veronica MD Primary Care Provider + Starr Paige MD Unavailable Dana Padilla MD Unavailable Izabella Snowden [facility] Unavailable None, Provider Primary Care Provider UnavailGabriel Dacosta Primary Care Provider Mirna Guerrero Primary Care Provider + Reason for Visit * Reason Onset Date Comments Results 01/28/2022 Encounter Details Date Type Department Care Team (Late st Contact Info) Description 01/28/2022 Telephone [facility] H[facility] & Oncology - [address] [address] Dana Padilla MD 111 [facility], [facility] 2 [place] [address] Results Social History Tobacco Use [...] 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 She is concerned as we were watching for platelet count. Please call back to discuss. documented in this encounter Plan of Treatment Upcoming Encounters Date Type Department Care Team (Late st Contact Info) Description 01/04/2025 13:00 EST Office Visit [facility] Ophthalmology - [address] [phone] Gagandeep Rome MD [address] [place] [address], [facility] 5 [place] [address] 02/11/2025 13:30 EDT Telemedicine [facility] Hematology & Oncology - [address] [phone] Dana Padilla MD [address] [place] [address], [facility] 2 [place] [address] documented as of this encounter Visit Diagnoses [...] documented as of this encounter Care Teams Upholstery Estimator Relationship Specialty Start Date End Date Emigdio Veronica MD [address] [place] [phone] PCP - General Internal Medicine - Primary Care 05/22/20 02/21/24 None, Provider PCP - General 02/24/24 03/18/24 Gabriel Gandara PA PCP - General 03/19/24 09/11/24 Mirna Guerrero PA [address] [place] [address] PCP - General 09/12/24 Starr Paige MD [address] [place] [phone] Hematology 10/08/21 06/09/22 Dana Padilla MD 111 [facility], [facility], Level [address] [place] [address] Hematology 01/13/22 06/09/22 Izabella Snowedn, [facility] 1 [facility], 3rd [place] [address] Registered Veterinary Technician 02/21/23 05/03/24 documented as of this encounter
--- OUTSIDE RECORDS SUMMARY | 2024-11-22 17:07 | XMS_ITS | Encounter Summary ---
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 [...] Office Visit [facility] Ophthalmology - [address] [address] Gagandeep Rome MD [address] [place] [address], [address] [place] [address] 02/11/2025 13:30 EDT Telemedicine [facility] Hematology & Oncology [address] [address] Dana Padilla MD 111 [facility], Level [address] [place] [phone] documented as of this encounter Procedures Procedure Name Priority Date/Time Associated Diagnosis Comments XR KNEE RIGHT 1-2 VIEWS Routine 02/04/2022 15:56 EDT Right knee pain, unspecified chronicity S/P total knee arthroplasty, right documented in this encounter Results * XR KNEE RIGHT 1-2 VIEWS (02/04/2022 15:56 EDT) Anatomical Region Laterality Modality Lower Extremities Right Computed Radio graphy 02/04/2022 17:1 3 EDT [...] 2019. Procedure Note Nahun Castellano MD - 03/17/2022 EXAM/TECHNIQUE: XR KNEE LEFT 1-2 VIEWS, XR [...] unspecified chronicity S/P total knee arthroplasty, right documented in this encounter Care Teams Auto Dismantler Relationship Specialty Start Date End Date Emigdio Veronica MD [address] [place] [phone] PCP - General Internal Medicine - Primary Care 05/22/20 02/21/24 Starr Paige MD [address] [facility] [place] [address] Hematology 10/08/21 06/09/22 Dana Padilal MD [address] [place] [address], [address] [place] [address] Hematology 01/13/22 06/09/22 documented as of this encounter
--- OUTSIDE RECORDS SUMMARY | 2024-11-22 17:07 | XMS_ITS | Encounter Summary ---
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 Not [...] Isabel Jimenez RN * Do you have serious difficulty [...] encounter Miscellaneous Notes * Telephone Encounter - Fanta Giordano - 02/05/2022 0927 EDT [facility] RE[facility] THERAPY - MEDICAL OFFICE BUILDING [address] [place] [address] Telephone Intake Information for Scheduling NEW Patients for Therapy Script/referral: In [place]LENA Referral date: 02/04/22 Referring Provider: GISEL TYLER NP Diagnosis: LE WEAKNESS/DECONDITIONING Primary Insurance: Medicare ACO Secondary Insurance: [place] Medicaid standard plan If Medicare: Have you been seen in therapy since November first of this year? No Are you receiving any home health or VNA services? No Notes: ASKED PATIENT TO ARRIVE EARLY FOR PAPERWORK. PATIENT PREFERS MID TO LATE AM, DAY CAN BE FLEX. *PATIENT ONLY AGREED TO 4 FOLLOW UPS FOR NOW Fanta Giordano 02/05/2022 documented in this encounter Plan of Treatment Upcoming Encounters Date Type Department Care Team (Late st Contact Info) Description 01/04/2025 13:00 EST Office Visit [facility] Ophthalmology - [address] [phone] Gagandeep Rome MD [address] [place] [phone] 02/11/2025 13:30 EDT Telemedicine [facility] Hematology & Oncology [address] [phone] Dana Padilla MD [address] [place] [address] 2 [place] [address] documented as of this encounter Visit Diagnoses Not on filedocumented in this encounter Care Teams Fan Installer Relationship Specialty Start Date End Date Emigdio Veronica MD 2 [place] [address] PCP - General Internal Medicine - Primary Care 05/22/20 02/21/24 Starr Paige MD [address] [place], [place] [phone] Hematology 10/08/21 06/09/22 Dana Padilla MD [address] [address] Hematology 01/13/22 06/09/22 documented as of this encounter
--- OUTSIDE RECORDS SUMMARY | 2024-11-22 17:07 | XMS_ITS | Encounter Summary ---
Author Organization [facility] Address [address] [place] [address] Care Team Providers Care Senior Net Programmer Name Role Phone Emigdio Veronica MD Primary Care Provider + Starr Paige MD Unavailable [phone] Dana Padilla MD Unavailable Reason for Visit * Reason Comments Leg Swelling pt seeing Dr. 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 No / Unsure 01/13/2022 7:24 EST documented as of this encounter Last Filed Vital Signs Vital Sign Reading Time Taken Comments Blood Pressure 110/60 01/27/2022 1423 EST Pulse 68 01/27/2022 1423 EST reg Temperature 35.7 ??C (96.3 ??F) 01/27/2022 1423 EST Respiratory Rate 14 01/27/2022 1423 EST reg Oxygen Saturation - - Inhaled Oxygen Concentration - - Weight 102 kg (224 lb 12.8 oz) 01/27/[address] Height 162.6 cm (5' 4) 01/27/2022 1423 EST Body Mass Index 38.59 01/27/2022 1423 EST documented in this encounter Functional Status [...] Isabel Jimenez RN documented in this encounter Patient Instructions * Patient Instructions* Cadence Arboleda - 01/27/2022 14:15 EST Quitting smoking Stopping smoking is the [...] with a trained counselor. Tobacco Counseling in [facility] offers free counseling services to residents who are ready to cut back or quit using tobacco. Services include: phone coaching (5-859-KUSK-NOW), online tools and support for those who would like to make changes on their own (www.[email or web address]), as well as in-person group workshops. Free nicotine replacement therapy is available through all of these resources. To learn more about your options visit www.[employer].org or call 9-402-EVNY-NOW ( ). To speak with an in-person tobacco counselor in [facility] call, [phone]. [place] Resident, please visit: [email or web address] I hope you quit smoking. I think it's the best thing you can do for your health. Please call our office if you have any questions. documented in this encounter Ordered Prescriptions Prescription Sig Dispense Quantity Refills Last Filled Start Date End Date spironolactone (ALDACTONE) 50 mg tablet Take 1.5 Tablets by mouth daily for 90 days. 135 Tablet 01/27/2022 2 furosemide (LASIX) 20 mg tablet TAKE 2TAB BY MOUTH EVERY MORNING 180 Tablet 1 01/27/2022 2 documented in this encounter Progress Notes * Osmany Matthews MD - 01/27/2022 1415 EST PRIMARY CARE PROVIDER: Emigdio Veronica CHIEF COMPLAINT: Chief Complaint Patient presents with ??? Leg Swelling pt seeing Dr. West on Tuesday SUBJECTIVE: FINA Yun is a very pleasant 61-year-old female, with multiple comorbid conditions,including QUIROZ with decompensated liver disease, hypothyroidism, chronic pain, GERD, depression, thrombocytopenia, anemia is here today for the above-mentioned reasons. Today, the main reason why she comes in, is because her legs have been swollen. She tells me this has been going on for a couple of weeks now. She was on a 5/2 ratio of spironolactone and Lasix. For the last couple of weeks she has been increasing her furosemide to 40 mg daily. She has lost some weight around her belly and in her lower extremities but not yet at her baseline weight. She is about 15 to 20 pounds shy of that she says. Her shortness of breath has been improving with the increase of Lasix. There is no fevers no chills no abdominal pain. She lives with roommates, and there is always somebody around when she is home. We discussed, optimization of her diuretics today. She also mentions, that she has been having more difficulty falling asleep lately. She does have an appointment with the liver specialist on Tuesday. Otherwise, she is alert and oriented not confused able to walk without a problem ROS The patient, does not complain of any blurry vision hearing abnormalities. There is no trouble withsmell taste or swallowing. There is no ringing in the ears. There is no shortness of breath chest heaviness no palpitations. There is no nausea vomiting constipation or diarrhea. Patient is able to sleep flat without any shortness of breath. Otherwise, from a musculoskeletal standpoint no overt symptoms pain or joint swelling. Is otherwise stable baseline overall happy. Medications and history reviewed. Current Outpatient Medications Medication ??? albuterol 90 mcg/actuation inhaler ??? amitriptyline (ELAVIL) 25 mg tablet ??? apixaban (ELIQUIS) 2.5 mg tablet ??? ferrous sulfate 324 mg [...] HFA aerosol inhaler inhaler ??? traZODone (DESYREL) 150 mg tablet No current facility-administered medications for this visit. Facility-Administered Medications Ordered in Other Visits Medication Route Frequency ??? albuterol (ACCUNEB) 2.5 mg /3 mL (0.083 %) nebulizer solution OBJECTIVE: BP 110/60 (BP Cuff Location: Right arm, BP Patient Position: Sitting, BP Cuff Sizes: Adult, regular) Pulse 68 Comment: reg Temp 35.7 ??C (96.3 ??F) (Tympanic) Resp 14 Comment: reg Ht 162.6 cm(64) Wt (!) 102 kg (224 lb 12.8 oz) BMI 38.59 kg/m?? Gen: PATIENT IS WELL APPEARING female, NAD Patient is comfortable alert and oriented x3 Cardiovascular exam demonstrates a regular rate and rhythm normal S1-S2 without rubs or gallops Pulmonary exam was relatively normal no wheezing no crackles with a good inspiratory and expiratoryeffort Abdominal exam benign without any rebound tenderness Extremities did not demonstrate any pedal edema or any skin abnormalities Phyliss was seen today for leg swelling. Diagnoses and all orders for this visit: Leg swelling Other orders - furosemide (LASIX) 20 mg tablet; TAKE 2TAB BY MOUTH EVERY MORNING - spironolactone (ALDACTONE) 50 mg tablet; Take 1.5 Tablets by mouth daily for 90 days. 1. QUIROZ with decompensated liver disease and bilateral pedal edema with some venous stasis, at thispoint it is imperative to optimize her diuretics. I will increase her spironolactone to 75 mg dailyfor the next week with careful monitoring of her blood pressure. Goal if she can tolerate it would be 100 mg of spironolactone/40 mg of furosemide. She will be reevaluated by her PCP in terms of volume status next week 2. Insomnia at this point will defer to PCP for management I spent a total of 30minutes on the date of this encounter meeting with the patient and reviewing documentation/coordinating care as described in the above note. No procedures were performed at the time of the visit. F/u: No follow-ups on file. Osmany Matthews MD [facility] Internal Medicine Adult Primary Care - [place] 01/27/2022 14:54 documented in this encounter Plan of Treatment Upcoming Encounters Date Type Department Care Team (Late st Contact Info) Description 01/04/2025 13:00 EST Office Visit [facility] Ophthalmology - [address] [phone] Gagandeep Rome MD [address] [place] [address], [facility] 5 [place] [phone] 02/11/2025 13:30 EDT Telemedicine [facility] Hematology & Oncology - [address] [phone] Dana Padilla MD [address] [place] [address] 2 [place] [address] documented as of this encounter Visit Diagnoses Diagnosis Leg swelling- Primary Swelling of limb documented in this encounter Discontinued Medications Medication Sig Discontinue Reason Start Date End Da te furosemide (LASIX) 20 mg tablet TAKE 1 TAB BY MOUTH EVERY MORNING FOR FLUID IN LEGS IF SWELLING IS WORSE THAN USUAL THEN TAKE 2 EVERY MORNING. MAX DAILY DOSE IS 40 MG PER DAY. Order modification 01/06/2022 01/27/2022 spironolactone (ALDACTONE) 50 mg tablet TAKE 1 TABLET BY MOUTH EVERY DAY Alternate therapy 01/06/2022 01/27/2022 documented as of this encounter Care Teams Senior Net Programmer Relationship Specialty Start Date End Date Emigdio Veronica MD [address] [place] [phone] PCP - General Internal Medicine - Primary Care 05/22/20 02/21/24 Starr Paige MD [address] [place] [phone] Hematology 10/08/21 06/09/22 Dana Padilla MD [address] [place] [address] 2 [place] [phone] Hematology 01/13/22 06/09/22 documented as of this encounter
--- OUTSIDE RECORDS SUMMARY | 2024-11-22 17:07 | XMS_ITS | Encounter Summary ---
Author Organization [facility] Address [address] [place] [address] Care Team Providers Care Mixing Plant Dumper Name Role Phone Emigdio Veronica MD Primary Care Provider + Starr Paige MD Unavailable [phone] Dana Padilla MD Unavailable Reason for Visit * Reason Onset Date Comments Medications Refill 01/15/2022 Encounter Details Date Type Department Care Team (Late st Contact Info) Description 01/15/2022 Refill [facility] - [place] [address] [place] [address] Emigdio Veronica MD [address] [place] [address] Medications Refill Social History Tobacco [...] Industry 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 Daily Max: 15 mg 84 Tablet 01/20/2022 02/12/2022 documented in this encounter Miscellaneous Notes * Telephone Encounter - Karol Hoff RN - 01/15/2022 5797 EST Chronic controlled medication yes Last med check visit 11/25/21 Future visit scheduled Yes 02/05/22, Dr Veronica wanted in December this had been rescheduled twice once by provider and once by patient [facility] checkNo Opioid prescription agreementYes 05/01/21 Patient due01/20/22 Requesting early fill due to travel for family issue * Telephone Encounter - Xuan Jimenez - 01/15/2022 1992 EST Requested Prescriptions Pending Prescriptions Disp Refills ??? oxyCODONE (ROXICODONE) 5 mg immediate release tablet 84 Tablet 0 Sig: Take 1 Tablet by mouth 3 times daily as needed for Pain. Daily Max: 15 mg Patient requests early refill due to going out of town on Tuesday01-17-2022 to be with father. [facility]/pharmacy #[id number] - [place], [place] - [address] Confirmed Pharmacy? Yes Patient out of medication? No Last Refill Date: 12-23-2021 Refills left? (explain exceptions requiring early refill) No Recent Visits Date Type Provider Dept 11/25/21 Office Visit Emigdio Veronica MD [facility] 11/11/21 Office Visit Scottie Campuzano PA-C [facility] 10/20/21 Office Visit Emigdio Veronica MD [facility] 10/08/21 Office Visit Emigdio Veronica MD [facility] 09/18/21 Office Visit Scottie Campuzano PA-C [place] [facility] 07/22/21 Office Visit Scottie Campuzano PA-C [facility] 05/14/21 Office Visit Emigdio Veronica MD [facility] 04/29/21 Office Visit Emigdio Veronica MD [facility] 04/16/21 Office Visit Emigdio Veronica MD [facility] 04/10/21 Office Visit Emigdio Veronica MD [facility] Showing recent visits within past 540 days with a meds authorizing provider and meeting all other requirements Future Appointments Date Type Provider Dept 02/05/22 Appointment mEigdio Veronica MD [facility] Showing future appointments within next 150 days with a meds authorizing provider and meeting all other requirements Future appointment: Already Scheduled Xuan Jimenez 01/15/2022 14:56 documented in this encounter Plan of Treatment Upcoming Encounters Date Type Department Care Team (Late st Contact Info) Description 01/04/2025 13:00 EST Office Visit [facility] Ophthalmology - [address] [phone] Gagandeep Rome MD [address] [place] [address], [facility] 5 [place] [phone] 02/11/2025 13:30 EDT Telemedicine [facility] Hematology & Oncology [address] [phone] Dana Padilla MD [address] [place] [address], Level [address] [place] [phone] documented as of this encounter Visit Diagnoses Not on filedocumented in this encounter Discontinued Medications Medication Sig Discontinue Reason Start Date End Da te oxyCODONE (ROXICODONE) 5 mg immediate release tablet Take 1 Tablet by mouth 3 times daily as needed for Pain. Daily Max: 15 mg Reorder 12/23/2021 01/15/2022 documented as of this encounter Care Teams Mixing Plant Dumper Relationship Specialty Start Date End Date Emigdio Veronica MD [address] [place] [address] PCP - General Internal Medicine - Primary Care 05/22/20 02/21/24 Starr Paige MD [address] [place] [phone] Hematology 10/08/21 06/09/22 Dana Padilla MD 111 [facility] 2 [place] [phone] Hematology 01/13/22 06/09/22 documented as of this encounter
--- OUTSIDE RECORDS SUMMARY | 2024-11-22 17:07 | XMS_ITS | Encounter Summary ---
Author Organization [facility] Address [address] [place] [address] Care Team Providers Care Director Of Services Name Role Phone Emigdio Veronica MD Primary Care Provider + Starr Paige MD Unavailable [phone] Dana Padilla MD Unavailable Reason for Visit * Reason Onset Date Comments Requesting Sooner Appointment 02/01/2022 Encounter Details Date Type Department Care Team (Late st Contact Info) Description 02/01/2022 Telephone [facility] Hematology & Oncology - [address] [address] Dana Padilla MD [address] [place] [address] [address] [place] [address] Requesting Sooner Appointment Social History [...] Industry 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 Padilla. States she has been very up an down lately and her pcp has suggested she schedule follow up with her. Please call back to schedule. documented in this encounter Plan of Treatment Upcoming Encounters Date Type Department Care Team (Late st Contact Info) Description 01/04/2025 13:00 EST Office Visit [facility] Ophthalmology - [address] [phone] Gagandeep Rome MD [address] [place] [address], [facility] 5 [place] [phone] 02/11/2025 13:30 EDT Telemedicine [facility] H[facility] & On[facility] - [address] [phone] Dana Padilla MD [address] [place] [address], [facility] 2 [place] [address] documented as of this encounter Visit Diagnoses Not on filedocumented in this encounter Care Teams Director Of Services Relationship Specialty Start Date End Date Emigdio Veronica MD [address] [place] [phone] PCP - General Internal Medicine - Primary Care 05/22/20 02/21/24 Starr Paige MD [address] [place] [phone] Hematology 10/08/21 06/09/22 Dana Padilla MD [address] [place] [address], [address] [place] [address] Hematology 01/13/22 06/09/22 documented as of this encounter
--- OUTSIDE RECORDS SUMMARY | 2024-11-22 17:07 | XMS_ITS | Encounter Summary ---
Author Organization [facility] Address [address] [place] [address] Care Team Providers Care Business Continuity Specialist Name Role Phone Emigdio Veronica MD Primary Care Provider + Starr Paige MD Unavailable [phone] Dana Padilla MD Unavailable Reason for Visit * Auth/Cert Specialty Diagnoses / Procedures Referred By Contkanchan t Referred To Contact Diagnoses Portal vein thrombosis LUQ abdominal pain Orthostatic hypotension Referral ID Status Reason Start Date Expiration Date Visits Re quested Visits Authorized [id number] 1 1 Encounter Details Date Type Department Care Team (Late st Contact Info) Description 02/09/2022 8:00 EDT Phlebotomy Only [facility] Laboratory Services - [address] [address] [facility] Portal vein thrombosis; Upper GI bleed; Thrombocytopenia ([facility]) (HCC) Social History Tobacco Use Types Packs/Day [...] 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 Let's reduce frequency of lab checks to every 3 weeks! Dana Padilla MD MSc Professor and Attending, Hematology Director, Thrombosis and Hemostasis Program documented in this encounter Plan of Treatment Upcoming Encounters Date Type Department Care Team (Late st Contact Info) Description 01/04/2025 13:00 EST Office Visit [facility] Ophthalmology - [address] [phone] Gagandeep Rome MD [address] [place] [address], [facility] 5 [place] [phone] 02/11/2025 13:30 EDT Telemedicine [facility] Hematology & Oncology - [address] [phone] Dana Padilla MD [address] [place] [address], [facility] 2 [place] [address] documented as of this encounter Procedures Procedure Name Priority Date/Time Associated Diagnosis Comments HN LAB CBC SMEAR REVIEW Today 02/09/2022 8:22 EDT Portal vein thrombosis Thrombocytopenia (HCC-CMS) (HCC) COMPLETE BLOOD COUNT AND DIFFERENTIAL Routine 02/09/2022 8:22 EDT Portal vein thrombosis Thrombocytopenia (HCC-CMS) (HCC) documented in this encounter Results * HN LAB CBC SMEAR REVIEW (02/09/2022 8:22 EDT) Differential Comment Slide was examined by a technologist to verify the WBC and/or platelet count. 02/09/2022 11:25 EDT [facility] Blood VENOUS BLOOD / Unknown Venipuncture / Unknown 02/09/2022 8:22 EDT 02/09/2022 8:22 EDT Dana Padilla MD HEMATOLOGY & PF4 ORDERABLES Pricila mccord Result [facility] [address] [place] [address] * (ABNORMAL) COMPLETE BLOOD COUNT AND DIFFERENTIAL (02/09/2022 8:22 EDT) WBC 3.23(L) 4.00 - 12.40 K/cmm 02/09/2022 11:27 [facility] RBC 3.84(L) 3.86 - 5.04 M/cmm 02/09/2022 11:27 [facility] Hemoglobin 10.7(L) 11.6 - 15.2 gm/dL 02/09/2022 11:27 [facility] HCT 32.7(L) 34.9 - 44.4 % 02/09/2022 11:27 [facility] MCV 85 81 - 98 fl 02/09/2022 11:27 [facility] MCH 27.9 26.7 - 33.3 pg 02/09/2022 11:27 [facility] MCHC 32.7 32.1 - 35.9 gm/dL 02/09/2022 11:27 [facility] RDW-CV 17.3(H) <14.7 % 02/09/2022 11:27 [facility] RDW-SD 54.4(H) <50.4 fl 02/09/2022 11:27 [facility] PLT 96(L) 141 - 377 K/cmm 02/09/2022 11:27 [facility] MPV 10.1 9.5 - 12.7 fl 02/09/2022 11:27 [facility] % Neutrophils 75.9 % 02/09/2022 11:27 [facility] % Lymphocytes 10.5 % 02/09/2022 11:27 [facility] % Monocytes 9.6 % 02/09/2022 11:27 [facility] % Eosinophils 3.1 % 02/09/2022 11:27 [facility] % Basophils 0.6 % 02/09/2022 11:27 [facility] % Immature Grans 0.3 % 02/10/20 11:27 [facility] Absolute Neutrophils 2.45 2.20 - 8.85 K/cmm 02/09/2022 11:27 [facility] Absolute Lymphocytes 0.34(L) 1.09 - 3.30 K/cmm 02/09/2022 11:27 [facility] Absolute Monocytes 0.31 0.10 - 0.80 K/cmm 02/09/2022 11:27 [facility] Absolute Eosinophils 0.10 0.03 - 0.61 K/cmm 02/09/2022 11:27 [facility] ABS Basophils 0.02 0.01 - 0.11 K/cmm 02/09/2022 11:27 [facility] Absolute Immature Grans 0.01 0.00 - 0.06 K/cmm 02/09/2022 11:27 [facility] Type of Differential: Auto 02/09/2022 11:27 [facility] Blood VENOUS BLOOD / Unknown Venipuncture / Unknown 02/09/2022 8:22 EDT 02/09/2022 8:22 EDT Dana Padilla MD PACKAGES & DNA PROBE ORDERABLES Final Result [facility] [address] [place] [address] documented in this encounter Visit Diagnoses Diagnosis Portal vein thrombosis Upper GI bleed Hemorrhage of gastrointestinal tract, unspecified Thrombocytopenia ([facility]) Thrombocytopenia, unspecified documented in this encounter Care Teams Business Continuity Specialist Relationship Specialty Start Date End Date Emigdio Veronica MD [address] [place] [phone] PCP - General Internal Medicine - Primary Care 05/22/20 02/21/24 Starr Paige MD [address] [place] [phone] Hematology 10/08/21 06/09/22 Dana Padilla MD 111 [facility], [facility] 2 [place] [address] Hematology 01/13/22 06/09/22 documented as of this encounter
--- OUTSIDE RECORDS SUMMARY | 2024-11-22 17:07 | XMS_ITS | Encounter Summary ---
Author Organization [facility] Address [address] [place] [address] Care Team Providers Care Dental Practice Manager Name Role Phone Emigdio Veronica MD Primary Care Provider + Starr Paige MD Unavailable [phone] Dana Padilla MD Unavailable Izabella Snowden 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 Had EGD in Dec. documented in this encounter Plan of Treatment Upcoming Encounters Date Type Department Care Team (Late st Contact Info) Description 01/04/2025 13:00 EST Office Visit [facility] Ophthalmology - [address] [phone] Gagandeep Rome MD [address] [place] [address] 5 [place] [phone] 02/11/2025 13:30 EDT Telemedicine [facility] Hematology & Oncology - [address] [address] Dana Padilla MD [address] [place] [address], [facility] [place] [facility] 2 [place] [phone] documented as of this encounter Visit Diagnoses [...] documented as of this encounter Care Teams Dental Practice Manager Relationship Specialty Start Date End Date Emigdio Veronica MD [address] [place] [phone] PCP - General Internal Medicine - Primary Care 05/22/20 02/21/24 None, Provider PCP - General 02/24/24 03/18/24 Gabriel Gandara PA PCP - General 03/19/24 09/11/24 Mirna Guerrero PA [address] [place] [phone] PCP - General 09/12/24 Starr Paige MD [address] [place], [place] [phone] Hematology 10/08/21 06/09/22 Dana Padilla MD 111 [facility], [address] [place] [phone] Hematology 01/13/22 06/09/22 Izabella Snowden, [facility] 1 [facility], 3rd [place] [address] Nuclear Spectroscopist 02/21/23 05/03/24 documented as of this encounter
--- OUTSIDE RECORDS SUMMARY | 2024-11-22 17:07 | XMS_ITS | Encounter Summary ---
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 Reiterated message below from Dr Fernandez. She also states she did have a covid test since these symptoms started and it was negative. Stressed importance of emergent f/u if develops any symptoms of syncope or presyncope over the next 24 hours. Otherwise she will f/u at office visit with Dr Matthews tomorrow * Telephone Encounter - Emigdio Fernandez MD - 01/26/2022 1212 EST A lot of issues and dav is a complex patient. I agree with an evaluation to determine next steps in management. If her symptoms of SOB have been going on for over a month it is unlikely that she is acutely infectious and her last COVID-19 test was two weeks ago and negative. Given this I not believe she needs to be tested again unless we are missing something and she has developed new acute infectious symptoms over the last few days. Her SOB combined with her reports of increased weight, leg swelling and syncope is obviously highlyalarming. The history is consistent with a volume overload state, but Tara has historically claimed her lower extremity swelling is severe and the resulting drive to increase her diuretics resulted in several episodes of MUSA. Her volume status needs to be assessed in person before medications are adjusted. Should she develop any further episodes of presyncope or syncope she should not wait until her appointment and immediately present to the ED. * Telephone Encounter - Heike Mcleod, RN - 01/26/2022 1116 EST Call to pt 1. Swelling is getting worse in legs again Taking diuretics as rxed: spironlactone 50 mg each AM Lasix 20 mg. Has been taking 2 tabs for last 2-3 wks Legs keep getting more swollen Legs red from knee down They are painful to push on Weight 197 pounds last wk on Monday 01/22. Back up to 227 pounds today. BP she is checking every day.BP running on low side again. Today was 98/56. BP yesterday was 91/? 2. Also, 1 mos ago she came down with a cold. She is very congested. Is on 02. Is on 2 L at bedtimeat baseline. Room air during the day. A couple times it was bad where she felt she needed 02 duringday. Has not been sleeping well. Pt not sounding SOB on phone. States breathing worse in the AM andevening. Breathing also worse when laying down. When sleeps, sleeps 10-15 min and wakes up. In past 3 wks, keeps waking up SOB. Even before SOB, has had trouble sleeping Last covid test 01/10 was for endoscopy procedure. These sx started prior to covid test Denies cough. 2. Also, has Fainted 3x. First time was in bathroom in middle of night. First fall was 3-4 wks ago.Went down and does not recall anything. Roommate heard her call. Ribs hurt afterwards. 3 nights ago fainted 2x in 1 night; in kitchen and hallway. She is so tired as she has not slept inso long. Falls asleep on feet and falls down. First time she fell when in bathroom, she hit head when fell. Head bounced from tub to floor. Denies headache, confusion, dizziness. Does get nauseas but that is normal and has zofran. Did not hit head the 2nd and 3rd time. But when fell landed on tailbone and lower back sore since. Using lidoderm patches and bengay. 4. Labs going back down again. Platelets dropped. States since endoscopy ulcer is gone Has upcoming appt with dr fernandez 02/[address] Cassie for tomorrow. Does she need covid test prior to being seen? Recommendations prior to then? To dr Fernandez * Telephone Encounter - Noemi Hall - 01/26/2022 0952 EST Reason for Call: Leg Swelling Summary/Symptoms: patient states her legs are very swollen and she is retaining a lot of fluid. Says weight is up to 227 this morning. She is not sure how much of a change this was since last visit but feels she has gained a lot over the last few day. Also says she is always short of breath as wellbut not sure if it is related Onset and Duration: current Does the patient have a computer, laptop or smart phone with high speed & video capability? N/A If so, would they be interested in doing a video visit via Zoom? N/A Appointment Offered? No Noemi Hall 01/26/2022 9:52 documented in this encounter Plan of Treatment Upcoming Encounters Date Type Department Care Team (Late st Contact Info) Description 01/04/2025 13:00 EST Office Visit [facility] Ophthalmology - [address] [phone] Gagandeep Rome MD [address] [place] [address], [facility] 5 [place] [address] 02/11/2025 13:30 EDT Telemedicine [facility] Hematology & Oncology [address] [phone] Dana Padilla MD [address] [place] [address], [facility] 2 [place] [address] documented as of this encounter Visit Diagnoses Not on filedocumented in this encounter Care Teams Propeller Engineer Relationship Specialty Start Date End Date Emigdio Fernandez MD [address] [place] [phone] PCP - General Internal Medicine - Primary Care 05/22/20 02/21/24 Starr Paige MD [address] [place] [phone] Hematology 10/08/21 06/09/22 Dana Padilla MD 111 [facility], Level [address] [place] [address] Hematology 01/13/22 06/09/22 documented as of this encounter
--- OUTSIDE RECORDS SUMMARY | 2024-11-22 17:07 | XMS_ITS | Encounter Summary ---
Author Organization [facility] Address [address] [place] [address] Care Team Providers Care Sap Architect Name Role Phone Emigdio Veronica MD Primary Care Provider + Starr Paige MD Unavailable [phone] Dana Padilla MD Unavailable Encounter Details Date Type Department Care Team (Late st Contact Info) Description 01/13/2022 7:59 EST Anesthesia Event [facility] Endoscopy - [place] [address] [place] [address] Anthony Prater MD [address] [facility], Level 2 [place] [address] Yuli Lloyd CRNA [address] [place] [address] [place] [address] Anesthesia Record Procedure Summary Procedure Name Responsible Anesthesiologist Anesthesia Start Time Anesthesia Stop Time UPPER ENDOSCOPY (EGD) Anthony Prater MD 01/13/22 0759 01/13/22 0817 Events Date Time Event Comment 01/13/2022 0759 An Start The patient was re-evaluated immediately before moderate or deep sedation use, before anesthesia induction, or before the anesthesia procedure. 0759 An Start Data 0805 Anesthesia Ready 0811 an stop data 0816 Handoff to RN I completed my handoff to the receiving nurse during which we: 1. Identified the patient 2. Identified the responsible provider 3. Reviewed the pertinent medical history 4. Discussed the surgical course 5. Reviewed intra-op anesthesia management and issues during anesthesia 6. Set expectations for post-procedure period 7. Allowed opportunity for questions and acknowledgement of understanding. 0817 An Stop Meds Name Total lidocaine 2% (PF) injection glass vial 4 0 mg midazolam 1 mg/mL 2 mL vial 2 mg propOFol injection 70 mg propOFol (DIPRIVAN) injection 126,980 mc g dexmedetomidine injection - vial 10 mcg albuterol inhaler 4 Puff lactated ringers (LR) infusion 200 mL * Agents Name Aux O2 flow * Blood No blood administrations on file. 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 Complete vitals history is available in the Epicflowsheets. Vitals Value Taken Time BP 84/48 01/13/22 0815 Temp 01/13/22 0817 Resp 13 01/13/22 08 Pulse From Oximetry 71 BPM 01/13/22816 SpO2 98 % 01/13/22816 Vitals shown include unvalidated device data. Last Pain Score - Numeric Pain Level (Scale 1-10): 7 Type of Anesthesia - MAC Anesthesia Post Evaluation Post-procedure vitals reviewed and are stable. Level of consciousness: sedated Temperature status: normothermia and patient returned to pre-procedure baseline Respiratory status: airway patent and stable Cardiovascular status: stable Hydration status: adequate Nausea/Vomiting: none Pain management: adequate Post-Op Assessment: patient tolerated procedure well with no complications Patient participation: unable to participate due to sedation Disposition: outpatient/home Anesthesia Complications: No apparent anesthesia complications * Anesthesia Preprocedure Evaluation - Anthony Prater MD - 01/13/2022 0813 EST Images from the original note were not included. Anesthesia Pre-procedure Evaluation Patient Medical History, including Anesthesia History reviewed. Chart and Nursing Notes reviewed, including NPO status and Medication History. Tara Yun is a 61 y.o. female : 1960 / Surgery / Procedure: EGD (concepción) - s/p multiple prior EGDs under MAC Diagnosis / Problem: HCV, decompensated NAFLD cirrhosis / ESLD (portal HTN, severe hepatosplenomegaly s/p partial splenic embolization, portal / splenic vein thrombosis - on eliquis - last took 01/10,hx hepatic encephalopathy, portal gastropathy, small esophageal varices on EGD in 2019 - on aldactone, lasix), GERD/PUD (protonix, carafate), s/p gastric fundoplication, intermittent GIB requiring admission / transfusions, anemia (Hgb 11 on 01/11/22), chronic thrombocytopenia (plts 111 on 01/11/22) COVID - vaccinated + boosted Lab Results Component Value Date COVID-19 rt-PCR Result Negative 01/10/2022 Allergies Allergen Reactions ??? Metoclopramide Nausea Only, [...] ??? Prochlorperazine ??? Reglan [Metoclopramide Hcl] Rash Estimated body mass index is 34.33 kg/m?? as calculated from the following: Height as of this encounter: 162.6 cm (64). Weight as of this encounter: 90.7 kg (200 lb). Other history: ??? 61F - obese (BMI 34), current smoker (11/24 ppd x 35 yrs, +marijuana), COPD on 2L O2 QHS / asthma/ environmental allergies (symbicort, albuterol prn), HUEY (not on CPAP), HLD, hypothyroidism (synthroid), nephrolithiasis, chronic pain syndrome (oxycodone 5 mg TID prn / reported drug seeking behavior), anxiety/depression (zoloft, trazodone, amitryptilene), poor dentition (many missing / broken teeth) EKG - 12/14/21 - SR 79, non-specific T-wave abnormality Echo - TTE 10/2021 ??? Left Ventricle: Left ventricular systolic function was normal with an ejection fraction of 60-65%. There was mild concentric hypertrophy of the left ventricle. Left ventricular wall motion was normal; there were no regional wall motion abnormalities. ??? Right Ventricle: The right ventricular cavity was upper limits of normal in size. Right ventricular systolic function was normal. ??? Left Atrium: Left atrial cavity was moderately dilated. Past Anesthesia Records ??? 10/14/2021 - EGD - 3L NC - 1M, 50F, 15K, 220P ??? 10/09/2021 - EGD - 2M, 15K, 160P ??? 03/2021 - EGD - 4L NC - 200P ??? 11/2020 - cysto - mask w/ OA, Mac 3 grade 2b w/ BURP ??? 11/2020 - cysto - 8L NC - MAC ??? 2014 - cysto - mask w/ OA, glide grade 1 22g PIV R hand runs well Past Surgical History: Procedure Laterality Date ??? [...] Right after fracture Current Outpatient Medications Medication Instructions ??? albuterol 90-180 mcg, inhalation, EVERY 4 HOURS PRN ??? amitriptyline (ELAVIL) 25 mg, oral, AT BEDTIME ??? apixaban (ELIQUIS) 2.5 mg, oral, 2 TIMES DAILY ??? ferrous sulfate 324 mg, oral, EVERY 48 HOURS ??? furosemide (LASIX) 20 mg tablet TAKE 1 TAB BY MOUTH EVERY MORNING FOR FLUID IN LEGS IF SWELLINGIS WORSE THAN USUAL THEN TAKE 2 EVERY MORNING. MAX DAILY DOSE IS 40 MG PER DAY. ??? levothyroxine (SYNTHROID) 25 mcg, oral, DAILY BEFORE BREAKFAST ??? mupirocin (BACTROBAN) 2 % ointment Apply 3 times a day for 1 week for painful sore on lower right leg. ??? naloxone (NARCAN) 4 mg/actuation nasal spray 1 [place], nasal, PRN, Repeat every 2-3 minutes if not effective and overdose is suspected. (spray is harmless in excess). ??? ondansetron (ZOFRAN-ODT) 4 mg, oral, EVERY 4 TO 6 HOURS PRN ??? oxyCODONE (ROXICODONE) 5 mg, oral, 3 TIMES DAILY PRN ??? OXYGEN-AIR DELIVERY SYSTEMS MISC 2 L, misc (non-drug; combo route), AT BEDTIME ??? pantoprazole (PROTONIX) 40 mg, oral, 2 TIMES DAILY ??? sertraline (ZOLOFT) 50 mg tablet TAKE 1 TABLET BY MOUTH EVERY DAY ??? spironolactone (ALDACTONE) 50 mg tablet TAKE 1 TABLET BY MOUTH EVERY DAY ??? sucralfate (CARAFATE) 1 g, oral, 4 TIMES DAILY ??? SYMBICORT 160-4.5 mcg/actuation HFA aerosol inhaler inhaler 2 Puffs, inhalation, DAILY ??? traZODone (DESYREL) 300 mg, oral, AT BEDTIME Current Facility-Administered Medications (ANESTHETICS) Medication Dose Route Frequency Provider Last Rate Last Admin ??? lidocaine (PF) 10 mg/mL (1 %) injection 2 mg 2 mg intradermal PRN Micheal Moesley MD ??? lidocaine (PF) 10 mg/mL (1 %) injection 2 mg 2 mg intradermal PRN Micheal Moseley MD Facility-Administered Medications Ordered in Other Encounters (ANESTHETICS) Medication Dose Route Frequency Provider Last Rate Last Admin ??? lidocaine (PF) 20 mg/mL (2 %) injection intravenous PRN Yuli Lloyd CRNA 40 mg at 01/13/22 0801 ??? midazolam (PF) (VERSED) injection intravenous PRN Yuli Lloyd CRNA 2 mg at 01/13/22 0800 ??? propOFol (DIPRIVAN) injection intravenous One Step Meds Yuli Lloyd CRNA Stopped at 01/13/22 0809 ??? propOFol (DIPRIVAN) injection intravenous PRN Yuli Lloyd CRNA 70 mg at 01/13/22 0805 Current Facility-Administered Medications (ANTIDOTES) Medication Dose Route Frequency Provider Last Rate Last Admin ??? naloxone (NARCAN) injection 0.2 mg 0.2 mg intravenous PRN Yuli Lloyd CRNA Facility-Administered Medications Ordered in Other Encounters (ANTIASTHMATICS) Medication Dose Route Frequency Provider Last Rate Last Admin ??? albuterol (ACCUNEB) 2.5 mg /3 mL (0.083 %) nebulizer solution Current Facility-Administered Medications (ANTIHISTAMINES) Medication Dose Route Frequency Provider Last Rate Last Admin ??? diphenhydrAMINE (BENADRYL) injection 25 mg 25 mg intravenous Once PRN Micheal Moseley MD Current Facility-Administered Medications (ELECT/CALORIC/H2O) Medication Dose Route Frequency Provider Last Rate Last Admin ??? sodium chloride 0.9 % (NS) infusion 30 mL/hr intravenous PRN Micheal Moseley MD Or ??? lactated ringers (LR) infusion 30 mL/hr intravenous PRN Micheal Moseley MD 30 mL/hr at 01/13/22 0759 Continued by Anesthesia at 01/13/22 0759 ??? lactated ringers (LR) infusion intravenous CONTINUOUS Yuli Lloyd CRNA ??? sodium chloride 0.9 % (flush) flush 3 mL 3 mL intravenous PRN Micheal Moseley MD ??? sodium chloride 0.9 % (flush) flush 5 mL 5 mL intravenous Q8H Micheal Moseley MD Current Facility-Administered Medications (GASTROINTESTINAL) Medication Dose Route Frequency Provider Last Rate Last Admin ??? atropine 0.1 mg/mL syringe 0.5 mg 0.5 mg intravenous PRN Yuli Lloyd CRNA Facility-Administered Medications Ordered in Other Encounters (SEDATIVE/HYPNOTICS) Medication Dose Route Frequency Provider Last Rate Last Admin ??? dexmedeTOMIDine (PRECEDEX) injection intravenous PRN Yuli Lloyd CRNA 10 mcg at 01/13/22 0801 Relevant Problems Anesthesia (+) HUEY (obstructive sleep apnea) PULMONARY (+) COPD (chronic obstructive pulmonary disease) ([facility]) ([facility]) (+) Dyspnea (+) Mild persistent asthma without complication (+) HUEY (obstructive sleep apnea) CARDIOVASCULAR (+) 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HCC-CMS) (HCC) (+) Portal vein thrombosis (+) Splenic vein thrombosis GASTROINTESTINAL (+) Peptic ulcer disease with hemorrhage /Renal (+) Nephrolithiasis (+) Other cirrhosis of liver (HCC) (+) Portal vein thrombosis ENDO/GI (+) Hypothyroidism Other (+) Hypersplenism Past Medical History: Diagnosis Date ??? Anemia [...] Amelia Tijer[place] and notes from [facility] patient misconstrued information to several providers about [...] by Starr Paige MD) ??? Thyroid disease Patient Active Problem List Diagnosis ??? Pancytopenia [...] ??? Thrombocytopenia (HCC-CMS) (HCC) ??? Abdominal pain Social History Tobacco Use Smoking Status Current Some Day Smoker ??? Packs/day: 0.25 ??? Years: 35.00 ??? Pack years: 8.75 ??? Types: Cigarettes ??? Last attempt to quit: 08/20/2016 ??? Years since quittin.4 Smokeless Tobacco Never Used Tobacco Comment one to two cigarettes per week, 01/11/22- Social History Substance and Sexual Activity Drug Use Not Currently ??? Types: Marijuana Social History Substance and Sexual Activity Alcohol Use No Lab Results Component Value Date WBC 3.27 (L) 01/11/2022 HGB 11.0 (L) 01/11/2022 HCT 35.8 01/11/2022 MCV 88 01/11/2022 PLT 111 (L) 01/11/2022 Lab Results Component Value Date NA 137 12/14/2021 K 4.4 12/14/2021 CL 104 12/14/2021 CO2 24 12/14/2021 BUN 16 12/14/2021 CREATININE 0.81 12/14/2021 Lab Results Component Value Date Hemoglobin A1c 5.1 03/06/2020 Lab Results Component Value Date AST 32 12/14/2021 ALT 12 12/14/2021 ALKPHOS 117 12/14/2021 Lab Results Component Value Date INR 1.1 12/14/2021 INR 1.2 (H) 11/04/2021 PTT 36 12/14/2021 No results found for: PREGNANCYTE BP 130/87 Temp 36.5 ??C (97.7 ??F) (Temporal) Resp 16 Ht 162.6 cm (64) Wt 90.7 kg (200 lb) SpO2 95% BMI 34.33 kg/m?? Additional ROS/History Findings: Review of Systems Constitutional: Positive for malaise/fatigue. Negative for chills and fever. HENT: Negative for congestion and sore throat. Respiratory: Positive for shortness of breath. Negative for cough and wheezing. Cardiovascular: Negative for chest pain. Gastrointestinal: Positive for abdominal pain, heartburn and nausea. Negative for vomiting. Took zofran this AM, feeling better Musculoskeletal: Positive for back pain and joint pain. Psychiatric/Behavioral: The patient is nervous/anxious. Physical Exam Airway Mallampati: IV TM distance: <3 FB Neck ROM: full Comments: Small mouth opening Cardiovascular Rhythm: regular Rate: normal (-) murmur Dental Pulmonary (+) wheezes (-) rhonchi, rales Comments: Wheezing R > L Abdominal (+) obese Anesthesia Plan ASA 3 Anesthesia Type - MAC Anesthesia plan and risks discussed. Informed consent obtained from patient. Specific risks discussed were bleeding and dental injury. PAT Note Notes from 12/14/21 through 01/13/22 No notes of this type exist for this encounter. documented in this encounter Miscellaneous Notes * Addendum Note - Anthony Prater MD - 01/13/2022 0820 EST Addendum created 01/13/22 0820 by Anthony Prater MD Clinical Note Signed documented in this encounter Plan of Treatment Upcoming Encounters Date Type Department Care Team (Late st Contact Info) Description 01/04/2025 13:00 EST Office Visit [facility] Ophthalmology - [address] [phone] Gagandeep Rome MD [address] [place] [address], [address] [place] [phone] 02/11/2025 13:30 EDT Telemedicine [facility] Hematology & Oncology - [address] [place] [address] Dana Padilla MD [address] [facility], [facility], [address] [place] [address] documented as of this encounter Visit Diagnoses Not on filedocumented in this encounter Administered Medications Inactive Administered Medications - up to 3 most recent administrations Medication Order MAR Action Action Date Dose Rate Site albuterol inhaler inhalation, PRN, Starting on Tue01/13/22 at 0757, Until Tue01/13/22 at 0817, Routine, Anesthesia Intraprocedure Given 01/13/2022 7:57 EST 4 Puffs dexmedeTOMIDine (PRECEDEX) injection intravenous, PRN, Starting on Tue01/13/22 at 0801, Until Tue01/13/22 at 0817, Routine, Anesthesia Intraprocedure Given 01/13/2022 8:01 EST 10 mcg lactated ringers (LR) infusion 30 mL/hr, intravenous, PRN, Starting on Tue01/13/22 at 0721, Until 01/16/22 at 0203, Routine, Preprocedure Continued by Anesthesia 01/13/2022 7:59 EST 30 mL/hr Restarted 01/13/2022 7:51 EST New Bag 01/13/2022 7:33 EST 30 mL/hr 30 mL/hr lidocaine (PF) 20 mg/mL (2 %) injection intravenous, PRN, Starting on Tue01/13/22 at 0801, Until Tue01/13/22 at 0817, Routine, Anesthesia Intraprocedure Given 01/13/2022 8:01 EST 40 mg midazolam (PF) (VERSED) injection intravenous, PRN, Starting on Tue01/13/22 at 0800, Until Tue01/13/22 at 0817, Routine, Anesthesia Intraprocedure Given 01/13/2022 8:00 EST 2 mg propOFol (DIPRIVAN) injection intravenous, FA IP EQF CONTINUOUS PRN FOR ONE STEP MEDS, Starting on Tue01/13/22 at 0801, Until Tue01/13/22 at 0817, Routine, Anesthesia Intraprocedure Rate Change 01/13/2022 8:05 EST 150 mcg/kg/min 81.63 mL/hr New Bag 01/13/2022 8:01 EST 200 mcg/kg/min 108.84 mL/hr propOFol (DIPRIVAN) injection intravenous, PRN, Starting on Tue01/13/22 at 0805, Until Tue01/13/22 at 0817, Routine, Anesthesia Intraprocedure Given 01/13/2022 8:05 EST 70 mg documented in this encounter Care Teams Sap Architect Relationship Specialty Start Date End Date Emigdio Veronica MD [address] [place] [address] PCP - General Internal Medicine - Primary Care 05/22/20 02/21/24 Starr Paige MD [address] [place], [place] [phone] Hematology 10/08/21 06/09/22 Dana Padilla MD 111 [facility], [address] [place] [phone] Hematology 01/13/22 06/09/22 documented as of this encounter
--- OUTSIDE RECORDS SUMMARY | 2024-11-22 17:07 | XMS_ITS | Encounter Summary ---
Author Organization [facility] Address [address] [place] [address] Care Team Providers Care Chief Merchandising Officer Name Role Phone Emigdio Veronica MD Primary Care Provider + Starr Paige MD Unavailable [phone] Dana Padilla MD Unavailable Reason for Visit * Reason Comments Insomnia Anxiety * Auth/Cert Specialty Diagnoses / Procedures Referred By Serene huitron Referred To Contact Diagnoses Portal vein thrombosis LUQ abdominal pain Orthostatic hypotension Referral ID Status Reason Start Date Expiration Date Visits Re quested Visits Authorized [id number] 1 1 Encounter Details Date Type Department Care Team (Late st Contact Info) Description 02/10/2022 9:45 EDT Office Visit [facility] Adult Primary Care - [place] [address] [place] [address] Darlene Rollins, HAR[place] [address] [place] [address] Unconscious (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 No / Unsure 01/13/2022 7:24 EST documented as of this encounter Last Filed Vital Signs Vital Sign Reading Time Taken Comments Blood Pressure 100/60 02/10/2022 1009 EDT Pulse 80 02/10/2022 1009 EDT reg Temperature 36.1 ??C (96.9 ??F) 02/10/2022 1009 EDT Respiratory Rate 14 02/10/2022 1009 EDT reg Oxygen Saturation - - Inhaled Oxygen Concentration - - Weight 102.5 kg (226 lb) 02/10/2022 1009 EDT Height 162.6 cm (5' 4) 02/10/2022 1009 EDT Body Mass Index 38.79 02/10/2022 1009 EDT documented in this encounter Functional Status [...] Instructions * Patient Instructions* Cadence Arboleda - 02/10/2022 9:45 EDT Quitting smoking Stopping smoking is [...] with a trained counselor. Tobacco Counseling in [facility] offers free counseling services to residents who are ready to cut back or quit using tobacco. Services include: phone coaching (), online tools and support for those who would like to make changes on their own (www.RentJiffy), as well as in-person group workshops. Free nicotine replacement therapy is available through all of these resources. To learn more about your options visit www.Impraise.Garpun or call 3-003-QLIX-NOW ( ). To speak with an in-person tobacco counselor in [facility] call, [phone]. [place] Resident, please visit: https://www.AutoGnomics/ I hope you quit smoking. I think it's the best thing you can do for your health. Please call our office if you have any questions. documented in this encounter Progress Notes * Darlene Rollins NP - 02/10/2022 0945 EDT Primary Care Office Visit Assessment & Plan Diagnoses and all orders for this visit: Unconscious (HCC-CMS) ([facility]) No follow-ups on file. PATIENT SENT TO ER. WILL FOLLOW UP AFTER DISCHARGE. Yina Pacheco is a 61 y.o. female presenting with Insomnia and Anxiety HPI 1011 Patient found on floor unconscious face down on floor. Palpated for carotid pulse present. Patient rolled over to back. Patient currently nonverbal upon asking is she ok. Patient began moaning and groaning a few moments later. Staff alerted to emergency. Staff brought defibrillator and crash cart to room. Staff phoned 911. Vitals taken 132/87, 20, 98%, 97.2.....Blood sugar 97mg/dl. Patient currently shivering and incoherent. Patient grabbing her abdomen and grimacing in pain. 1020 Patient became verbal. EMS arrived at 1022. Patient sent to ER. Data reviewed this visit: Allergies Allergen Reactions ??? Metoclopramide Nausea Only, [...] ??? Prochlorperazine ??? Reglan [Metoclopramide Hcl] Rash Current Outpatient Medications on File Prior to Visit Medication Sig Dispense Refill ??? albuterol 90 [...] bedtime. 180 Tablet 1 Current Facility-Administered Medications on File Prior to Visit Medication Dose Route Frequency Provider Last Rate Last Admin ??? albuterol (ACCUNEB) 2.5 mg /3 mL (0.083 %) nebulizer solution I have reviewed all the lab results. There are some abnormalities that are not critical to the patient's health, but I would like to discuss these in person at an office appointment. Please ask her to schedule a follow up visit with me at her convenience. Review of Systems Constitutional: Positive for chills. HENT: Negative. Respiratory: Negative. Cardiovascular: Positive for leg swelling. Gastrointestinal: Positive for abdominal pain. Neurological: Positive for loss of consciousness. Psychiatric/Behavioral: The patient has insomnia. - See HPI Objective BP 100/60 (BP Cuff Location: Right arm, BP Patient Position: Sitting, BP Cuff Sizes: Adult, regular) Pulse 80 Comment: reg Temp 36.1 ??C (96.9 ??F) (Tympanic) Resp 14 Comment: reg Ht 162.6 cm(64) Wt (!) 102.5 kg (226 lb) BMI 38.79 kg/m?? Physical Exam Constitutional: Appearance: She is well-developed. She is not diaphoretic. HENT: Mouth/Throat: Mouth: Mucous membranes are moist. Eyes: Extraocular Movements: EOM normal. Conjunctiva/sclera: Conjunctivae normal. Pupils: Pupils are equal, round, and reactive to light. Cardiovascular: Rate and Rhythm: Normal rate and regular rhythm. Pulmonary: Effort: Pulmonary effort is normal. Breath sounds: Normal breath sounds. Abdominal: General: Bowel sounds are normal. Palpations: Abdomen is soft. Tenderness: There is abdominal tenderness. Musculoskeletal: Cervical back: Normal range of motion and neck supple. Skin: General: Skin is warm and dry. documented in this encounter Miscellaneous Notes * Addendum Note - Darlene Rollins NP - 02/10/2022 0945 EDTAddended by: DARLENE ROLLINS on: 02/10/2022 10:57 Modules accepted: Orders documented in this encounter Plan of Treatment Upcoming Encounters Date Type Department Care Team (Late st Contact Info) Description 01/04/2025 13:00 EST Office Visit [facility] Ophthalmology - [address] [phone] Gagandeep Rome MD [address] [place] [address], [facility] [address] [place] [phone] 02/11/2025 13:30 EDT Telemedicine [facility] Hematology & Oncology - [address] [phone] Dana Padilla MD [address] [place] [address], [facility] [address] [place] [address] documented as of this encounter Procedures Procedure Name Priority Date/Time Associated Diagnosis Comments POCT GLUCOSE, MANUAL ENTRY Routine 02/10/2022 10:45 EDT Unconscious ([facility]) ([facility]) documented in this encounter Results * POCT GLUCOSE, MANUAL ENTRY (02/10/2022 10:45 EDT) Glucose, POC 97 70 - 100 mg/dL [facility] POINT OF CARE HN LAB POC COMMENT MANUAL (GLUCOSE) [facility] POINT OF datapower consultant ID [email or web address] POIN T OF CARE Blood CAPILLARY BLOOD / Unknown 02/10/2022 10:45 EDT us Darlene Rollins TERMINAL SYSTEM OPERATOR POINT OF CARE TEST ORDERABLES Fi nal Result [facility] documented in this encounter Visit Diagnoses Diagnosis Unconscious (HCC-CMS)- Primary Other alteration of consciousness documented in this encounter Care Teams Chief Merchandising Officer Relationship Specialty Start Date End Date Emigdio Veronica MD [address] [place] [phone] PCP - General Internal Medicine - Primary Care 05/22/20 02/21/24 Starr Paige MD [address] [place] [phone] Hematology 10/08/21 06/09/22 Dana Padilla MD 111 [facility], [facility], [address] [place] [address] Hematology 01/13/22 06/09/22 documented as of this encounter
--- OUTSIDE RECORDS SUMMARY | 2024-11-22 17:07 | XMS_ITS | Encounter Summary ---
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 She had an EGD last week with Dr. Moseley that was normal - no residual ulcer and apparently no varices. He recommended follow up EGDin 2y. She has FUR with him on 02/01/22. She had partial splenic embolization in September when plt were in the 40s, and I wonder if the plt are just drifting down s/p that if her spleen is enlarging. She is not having bleeding. We will recheck her cbc in a week from now to see if the trend continues and I also look forward toDr. Moseley's opinion about this. I don't have experience with splenic emobolization procedures inliver cirrhosis with thrombocytopenia that allows me to know the expected duration of response. She will continue apixaban 2.5 mg BID. If plt decline substantially we can try TPO-mimetic prior toher upcoming dental extractions, but she apparently did not have a good response to this with Dr. Paige in the past (lusutrombopag). Dana Padilla MD MSc Professor and Attending, Hematology Director, Thrombosis and Hemostasis Program documented in this encounter Plan of Treatment Upcoming Encounters Date Type Department Care Team (Late st Contact Info) Description 01/04/2025 13:00 EST Office Visit [facility] [place] [address] Gagandeep Rome MD [address] [place] [address], [address] [place] [address] 02/11/2025 13:30 EDT Telemedicine [facility] Hematology & Oncology - [address] [phone] Dana Padilla MD [address] [place] [phone] documented as of this encounter Visit Diagnoses Not on filedocumented in this encounter Care Teams Railroad Commissioner Relationship Specialty Start Date End Date Emigdio Veronica MD [address] [place] [phone] PCP - General Internal Medicine - Primary Care 05/22/20 02/21/24 Starr Paige MD [address] [place] [phone] Hematology 10/08/21 06/09/22 Dana Padilla MD [address] [place] [phone] Hematology 01/13/22 06/09/22 documented as of this encounter
--- OUTSIDE RECORDS SUMMARY | 2024-11-22 17:07 | XMS_ITS | Encounter Summary ---
Author Organization [facility] Address [address] [place] [address] Care Team Providers Care Customer Solutions Supervisor Name Role Phone Emigdio Veronica MD Primary Care Provider + Starr Paige MD Unavailable Dana Padilla MD Unavailable Encounter Details Date Type Department Care Team (Late st Contact Info) Description 02/02/2022 Orders Only [facility] Total Joint Program - [address] [place] [address] Tatyana [place], HARSH [address] [place] [address] Right knee pain, unspecified chronicity (Primary Dx); S/P total knee arthroplasty, right Social History Tobacco Use Types Packs/Day Years [...] 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 There is osteopenia. Tatyana Granara CONCRETE MIXING TRUCK DRIVER IMG DIAGNOSTIC IMAGING ORDER YANN Final Result documented in this encounter Visit Diagnoses Diagnosis Right knee pain, unspecified chronicity- Primary S/P total knee arthroplasty, right Right knee pain, unspecified chronicity S/P total knee arthroplasty, right documented in this encounter Care Teams Customer Solutions Supervisor Relationship Specialty Start Date End Date Emigdio Veronica MD [address] [place] [phone] PCP - General Internal Medicine - Primary Care 05/22/20 02/21/24 Starr Paige MD [address] [place], [place] [phone] Hematology 10/08/21 06/09/22 Dana Padilla MD 111 [facility] 2 [place] [address] Hematology 01/13/22 06/09/22 documented as of this encounter
--- OUTSIDE RECORDS SUMMARY | 2024-11-22 17:07 | XMS_ITS | Encounter Summary ---
Author Organization [facility] Address [address] [place] [address] Care Team Providers Care Parts Counterperson Name Role Phone Emigdio Veronica MD Primary Care Provider + Starr Paige MD Unavailable [phone] Dana Padilla MD Unavailable Reason for Referral * Referral (Urgent) - Closed Specialty Diagnoses / Procedures Referred By Contact Referred To Contact Gastroenterology and Hepatology Diagnoses Gastrointestinal hemorrhage associated with duodenal ulcer Procedures UPPER ENDOSCOPY (EGD) [place] ESOPHAGOGASTRODUODENOSCOPY TRANSORAL DIAGNOSTIC ANESTHESIA UPPER GI ENDOSCOPIC PX NOS Emigdio Veronica MD Phone: tel:[phone] fax:[phone] [facility] Gastroenterology - [facility] [address] [place] [address] Phone: tel: fax: Referral ID Status Reason Start Date Expiration Date Visits Re quested Visits Authorized [id number] Closed 10/21/2021 11/20/2022 1 1 Reason for Visit * Consult (Routine/Next Available) - Order Cancelled Specialty Diagnoses / Procedures Referred By Contact Referred To Contact Gastroenterology and Hepatology Diagnoses Gastrointestinal hemorrhage associated with duodenal ulcer Emigdio Veronica MD Phone: tel:[phone] fax:[phone] [facility] Gastroenterology - [address] [address] Phone: tel: fax: Referral ID Status Reason Start Date Expiration Date Visits Requested Visits Authorized [id number] Order Cancelled Specialty Services Required 10/21/2021 1 1 Encounter Details Date Type Department Care Team (Late st Contact Info) Description 01/13/2022 6:58 EST - 01/13/2022 23:59 EST Hospital Encounter [facility] Endoscopy - [address] [phone] Micheal Moseley MD PhD [address] [place] [address] 5 [place] [phone] Pradip Anesthesiologist Anthony Prater MD 111 [facility] 2 [place] [phone] Gastrointestinal hemorrhage associated with duodenal ulcer Discharge Disposition: Home or Self Care Social [...] 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 MAX DAILY DOSE IS 40 MG PER DAY. 180 Tablet 1 01/06/2022 2 levothyroxine (SYNTHROID) 25 mcg tablet Take [...] needed for Pain. Daily Max: 15 mg 84 Tablet 12/23/2021 2 pantoprazole (PROTONIX) 40 mg tablet Take 1 Tablet by mouth 2 times daily. 30 Tablet 3 01/05/2022 2 sertraline (ZOLOFT) 50 mg tablet TAKE 1 TABLET BY MOUTH EVERY DAY 90 Tablet 1 10/06/2021 2 spironolactone (ALDACTONE) 50 mg tablet TAKE 1 TABLET BY MOUTH EVERY DAY 90 Tablet 1 01/06/2022 2 sucralfate (CARAFATE) 1 gram tablet Take 1 Tablet by mouth 4 times daily. 120 Tablet 3 12/10/2021 2 SYMBICORT 160-4.5 mcg/actuation HFA aerosol inhaler inhalerIndications:C OPD with asthma ([facility]) INHALE 2 PUFFS DIRECTED DAILY. 10.2 Each 1 11/09/2021 2 traZODone (DESYREL) 150 mg tablet Take 2 Tablets by mouth at bedtime. 180 Tablet 1 12/10/2021 2 documented as of this encounter Discharge Disposition Disposition Code Departure Means Destination Home or Self Care documented in this encounter H&P Notes * Micheal Moseley MD - 01/13/2022 0800 EST Endoscopy Sedation for Procedure History & Physical Date: 01/13/2022 Time: 8:00 Location: [facility] Endoscopy - [facility] Planned Procedure: Upper Endoscopy Chief Complaint/Indications for Procedure: Gastrointestinal hemorrhage associated with duodenal ulcer History Previous Complication with Sedation and/or Anesthesia? No Allergies: Allergies Allergen Reactions ??? Metoclopramide Nausea Only, [...] Prochlorperazine ??? Reglan [Metoclopramide Hcl] Rash Current Medications: Current Outpatient Medications Medication ??? albuterol [...] inhaler ??? traZODone (DESYREL) 150 mg tablet Current Facility-Administered Medications Medication Route Frequency ??? diphenhydrAMINE (BENADRYL) injection 25 mg intravenous Once PRN ??? sodium chloride 0.9 % (NS) infusion intravenous PRN Or ??? lactated ringers (LR) infusion intravenous PRN ??? lidocaine (PF) 10 mg/mL (1 %) injection 2 mg intradermal PRN ??? lidocaine (PF) 10 mg/mL (1 %) injection 2 mg intradermal PRN ??? sodium chloride 0.9 % (flush) flush 3 mL intravenous PRN ??? sodium chloride 0.9 % (flush) flush 5 mL intravenous Q8H Facility-Administered Medications Ordered in Other Encounters Medication Route Frequency ??? albuterol (ACCUNEB) 2.5 mg /3 mL (0.083 %) nebulizer solution Past Medical History: Past Medical History: Diagnosis Date ??? Anemia [...] Per Dr Amelia Tijerina and notes from [facility] patient misconstrued information to several [...] Starr Paige MD) ??? Thyroid disease Social History: Past Surgical History: Procedure Laterality Date ??? [...] Use Topics ??? Alcohol use: No Family History: Family History [...] as pertinent: Physical Exam Vital Signs: BP 130/87 Temp 36.5 ??C (97.7 ??F) (Temporal) Resp 16 Ht 162.6 cm (64) Wt 90.7 kg (200 lb) SpO2 95% BMI 34.33 kg/m?? Heart Examination: Cardiac Regularity: Regular Respiratory [...] procedure Fasting Time: Date of Last Liquid: 01/12/22 Time of Last Liquid: 2300 Date of Last Solid: 01/12/22 Time of Last Solid: 1700 Patient Appropriate Candidate for Planned Sedation?: Yes Micheal Moseley MD 01/13/2022 8:00 documented in this encounter Plan of Treatment Upcoming Encounters Date Type Department Care Team (Late st Contact Info) Description 01/04/2025 13:00 EST Office Visit [facility] Ophthalmology - [address] [phone] Gagandeep Rome MD [address] [place] [address], [facility] 5 [place] [address] 02/11/2025 13:30 EDT Telemedicine [facility] [[email or web address] Hematology & Oncology [address] [address] Dana Padilla MD [address] [place] [address], [facility] 2 [place] [phone] Pending Results Name Type Priority Associated Diagnoses Date /Time UPPER ENDOSCOPY (EGD) GI Routine Gastrointestinal hemorrhage associated with duodenal ulcer 01/13/2022 8:05 EST Scheduled Orders Name Type Priority Associated Diagnoses Orde r Schedule UPPER ENDOSCOPY (EGD) GI Routine Gastrointestinal hemorrhage associated with duodenal ulcer 1 Occurrences starting 01/13/2022 until 01/13/2022 documented as of this encounter Procedures Procedure Name Priority Date/Time Associated Diagnosis Comments UPPER ENDOSCOPY PROCEDURE Routine 01/13/2022 8:15 EST documented in this encounter Results * UPPER ENDOSCOPY PROCEDURE (01/13/2022 8:15 EST) Anatomical Region Laterality Modality Endoscopy Narrative 01/13/2022 8:15 EST Procedure Performed EGD Indications for Exam history of duodenal ulcer Procedure Technique A physical exam was performed. [...] episode of care contained in this record. 01/13/2022 08:15:48 AM By Micheal Moseley MD us Micheal Moseley MD PhD GI PROCEDURE ORDERABLES Final Result documented in this encounter Visit Diagnoses Diagnosis Gastrointestinal hemorrhage associated with duodenal ulcer documented in this encounter Administered Medications Inactive [...] 01/13/2022 7:33 EST 30 mL/hr 30 mL/hr documented in this encounter Orders Medications Ordered That Luc ht Not Have Been Administered Count Last Ordered Date First Ordered Date atropine 0.1 mg/mL syringe 0.5 mg 1 022 diphenhydrAMINE (BENADRYL) injection 25 mg 1 01/13/2022 lactated ringers (LR) infusion 1 01/13/2022 lidocaine (PF) 10 mg/mL (1 % ) injection 2 mg 2 01/13/2022 naloxone (NARCAN) injection 0.2 mg 1 2021 sodium chloride 0.9 % (flush) flush 3 mL 1 01/13/2022 sodium chloride 0.9 % (flush) flush 5 mL 1 01/13/2022 sodium chloride 0.9 % (NS) infusion 1 01/13 documented in this encounter Care Teams Parts Counterperson Relationship Specialty Start Date End Date Emigdio Veronica MD 2 [place] [phone] PCP - General Internal Medicine - Primary Care 05/22/20 02/21/24 Starr Paige MD [address] [place] [phone] Hematology 10/08/21 06/09/22 Dana Padilla MD 111 [facility], [facility] 2 [place] [phone] Hematology 01/13/22 06/09/22 documented as of this encounter
--- OUTSIDE RECORDS SUMMARY | 2024-11-22 17:07 | XMS_ITS | Encounter Summary ---
Author Organization [facility] Address [address] [place] [address] Care Team Providers Care Lens Edger Name Role Phone Emigdio Veronica MD Primary Care Provider + Starr Paige MD Unavailable [phone] Dana Padilla MD Unavailable Encounter Details Date Type Department Care Team (Latest Contact Info) Description 02/01/2022 8:30 EDT Phlebotomy Only [facility] Laboratory Services - [address] [address] Retail Shift [facility] Th[facility]ocytopenia ([facility]) ([facility]) Social History Tobacco Use Types Packs/Day Years [...] 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 Platelet count and red cells stable. Dana Padilla MD documented in this encounter Plan of Treatment Upcoming Encounters Date Type Department Care Team (Late st Contact Info) Description 01/04/2025 13:00 EST Office Visit [facility] Ophthalmology - [address] [phone] Gagandeep Rome MD [address] [place] [address], [facility] 5 [place] [phone] 02/11/2025 13:30 EDT Telemedicine [facility] Hematology & Oncology - [address] [phone] Dana Padilla MD [address] [place] [address] 2 [place] [phone] documented as of this encounter Procedures Procedure Name Priority Date/Time Associated Diagnosis Comments HN LAB CBC SMEAR REVIEW Today 02/01/2022 8:47 EDT Thrombocytopenia (HCC-CMS) (HCC) HN LAB CBC SMEAR REVIEW Today 02/01/2022 8:47 EDT Thrombocytopenia (HCC-CMS) (HCC) BLUE TOP WITH CBCA Routine 02/01/2022 8:47 EDT Thrombocytopenia (HCC-CMS) (HCC) BLUE TOP WITH CBCA - PLTS CLUMP IN EDTA Routine 02/01/2022 8:47 EDT Thrombocytopenia (HCC-CMS) (HCC) COMPLETE BLOOD COUNT AND DIFF, CHEMO Routine 02/01/2022 8:47 EDT Thrombocytopenia (HCC-CMS) (HCC) COMPLETE BLOOD COUNT Routine 02/01/2022 8:47 EDT Thrombocytopenia (HCC-CMS) (HCC) documented in this encounter Results * HN LAB CBC SMEAR REVIEW (02/01/2022 8:47 EDT) Differential Comment Slide was examined by a technologist to verify the WBC and/or platelet count. 02/01/2022 9:39 EDT [facility] Blood VENOUS BLOOD / Unknown Venipuncture / Unknown 02/01/2022 8:47 EDT 02/01/2022 8:47 EDT Dana Padilla MD HEMATOLOGY & PF4 ORDERABLES Pricila l Result Performing Organization Address [facility] Co de Phone Number [facility] [address] [place] [address] * HN LAB CBC SMEAR REVIEW (02/01/2022 8:47 EDT) Blood VENOUS BLOOD / Unknown Venipuncture / Unknown 02/01/2022 8:47 EDT 02/01/2022 8:47 EDT Dana Padilla MD HEMATOLOGY & PF4 ORDERABLES Pricila l Result [facility] [address] [place] [address] * (ABNORMAL) COMPLETE BLOOD COUNT AND DIFF, CHEMO (02/01/2022 8:47 EDT) WBC 3.17(L) 4.00 - 12.40 K/cmm 02/01/2022 9:40 EDT [facility] RBC 3.66(L) 3.86 - 5.04 M/cmm 02/01/2022 9:40 [facility] Hemoglobin 10.4(L) 11.6 - 15.2 gm/dL 02/01/2022 9:40 [facility] HCT 31.7(L) 34.9 - 44.4 % 02/01/2022 9:40 [facility] MCV 87 81 - 98 fl 02/01/2022 9:40 [facility] MCH 28.4 26.7 - 33.3 pg 02/01/2022 9:40 [facility] MCHC 32.8 32.1 - 35.9 gm/dL 02/01/2022 9:40 [facility] RDW-CV 17.8(H) <14.7 % 02/01/2022 9:40 [facility] RDW-SD 57.1(H) <50.4 fl 02/01/2022 9:40 [facility] PLT 115(L) 141 - 377 K/cmm 02/01/2022 9:40 [facility] MPV 9.3(L) 9.5 - 12.7 fl 02/01/2022 9:40 [facility] % Neutrophils 64.7 % 02/01/2022 9:40 [facility] Absolute Neutrophils 2.05(L) 2.20 - 8.85 K/cmm 02/01/2022 9:40 [facility] Type of Differential: Auto 02/01/2022 9:40 [facility] Blood VENOUS BLOOD / Unknown Venipuncture / Unknown 02/01/2022 8:47 EDT 02/01/2022 8:47 EDT us Dana Padilla MD PACKAGES & DNA PROBE ORDERABLES Final Result [facility] [address] [place] [address] * BLUE TOP WITH CBCA (02/01/2022 8:47 EDT) Blood VENOUS BLOOD / Unknown Venipuncture / Unknown 02/01/2022 8:47 EDT 02/01/2022 8:47 EDT Dana Padilla MD HEMATOLOGY & PF4 ORDERABLES Pricila suri Result [facility] [address] [place] [address] * (ABNORMAL) COMPLETE BLOOD COUNT (02/01/2022 8:47 EDT) WBC 3.17(L) 4.00 - 12.40 K/cmm 02/01/2022 9:13 T [facility] RBC 3.66(L) 3.86 - 5.04 M/cmm 02/01/2022 9:13 [facility] Hemoglobin 10.4(L) 11.6 - 15.2 gm/dL 02/01/2022 9:13 [facility] HCT 31.7(L) 34.9 - 44.4 % 02/01/2022 9:13 [facility] MCV 87 81 - 98 fl 02/01/2022 9:13 [facility] MCH 28.4 26.7 - 33.3 pg 02/01/2022 9:13 [facility] MCHC 32.8 32.1 - 35.9 gm/dL 02/01/2022 9:13 [facility] RDW-CV 17.8(H) <14.7 % 02/01/2022 9:13 [facility] RDW-SD 57.1(H) <50.4 fl 02/01/2022 9:13 [facility] PLT 115(L) 141 - 377 K/cmm 02/01/2022 9:13 [facility] MPV 9.3(L) 9.5 - 12.7 fl 02/01/2022 9:13 [facility] Blood VENOUS BLOOD / Unknown Venipuncture / Unknown 02/01/2022 8:47 EDT 02/01/2022 8:47 EDT us Dana Padilla MD HEMATOLOGY & PF4 ORDERABLES Pricila l Result [facility] [address] [place] [address] documented in this encounter Visit Diagnoses Diagnosis Thrombocytopenia (HCC-CMS) Thrombocytopenia, unspecified documented in this encounter Care Teams Lens Edger Relationship Specialty Start Date End Date Emigdio Veronica MD [address] [place] [phone] PCP - General Internal Medicine - Primary Care 05/22/20 02/21/24 Starr Paige MD [address] [place] [phone] Hematology 10/08/21 06/09/22 Dana Padilla MD 111 [facility], Level [address] [place] [phone] Hematology 01/13/22 06/09/22 documented as of this encounter
--- OUTSIDE RECORDS SUMMARY | 2024-11-22 17:07 | XMS_ITS | Encounter Summary ---
Author Organization 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 pantoprazole (PROTONIX) 40 mg tablet [Pharmacy Med Name: PANTOPRAZOLE SOD DR 40 MG TAB] 30 Tablet 3 Sig: TAKE 1 TABLET BY MOUTH TWICE A DAY [id number] - [place], [place] - [address] [place] [address] Last Refill Date: 01/05/22 Refill not required at this time WANDA CASIANO RN 02/01/2022 18:29 documented in this encounter Plan of Treatment Upcoming Encounters Date Type Department Care Team (Late st Contact Info) Description 01/04/2025 13:00 EST Office Visit [facility] Ophthalmology - [address] [phone] Gagandeep Rome MD [address] [place] [address], [facility] 5 [place] [phone] 02/11/2025 13:30 EDT Telemedicine [facility] Hematology & Oncology [address] [phone] Dana Padilla MD [address] [place] [address], [facility] 2 [place] [phone] documented as of this encounter Visit Diagnoses Not on filedocumented in this encounter Care Teams Manager [employer] Relationship Specialty Start Date End Date Emigdio Veronica MD [address] [place] [phone] PCP - General Internal Medicine - Primary Care 05/22/20 02/21/24 Starr Paige MD [address] [place] [phone] Hematology 10/08/21 06/09/22 Dana Padilla MD 111 [facility] Level [address] [place] [phone] Hematology 01/13/22 06/09/22 documented as of this encounter
--- OUTSIDE RECORDS SUMMARY | 2024-11-22 17:07 | XMS_ITS | Encounter Summary ---
Author Organization [facility] Address [address] [place] [address] Care Team Providers Care Software Implementation Project Manager Name Role Phone Emigdio Veronica MD Primary Care Provider + Starr Paige MD Unavailable Dana Padilla MD Unavailable Reason for Visit * Reason Comments Pain * Consult (Routine) - Closed Specialty Diagnoses / Procedures Referred By Serene huitron Referred To Contact Orthopedic Surgery Diagnoses Sprain of right knee, unspecified ligament, initial encounter Elle Nino NP Phone: tel: fax: [facility] [place] [address] [place] [address] Phone: tel: fax: Referral ID Status Reason Start Date Expiration Date V isits Requested Visits Authorized [id number] Closed Specialty Services Required 08/17/2019 1 1 Encounter Details Date Type Department Care Team (Late st Contact Info) Description 02/04/2022 15:[address] 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 Right Knee - Pain HPI: Tara Yun is a 61 y.o. female who returns here today for follow-up of her bilateral total knee arthroplasties (2008, Dr. Rollins). She describes bilateral knee pain and lower extremity swelling left greater than right. This has been worse in the last 6 months. She describes swelling throughouther body and legs, gaining about 30 pounds as a result. She was hospitalized in the fall and has undergone 5 different blood transfusions. She reports falling nearly 4-5 times, however is unsure thisis related to her knees. She reports her blood pressure has been low. She has been following closely with her primary care and other specialist regarding these problems. She describes lateral left calf pain, just distal to the knee. She feels this is related to the screw within the knee. She feels generally weak and has difficulty walking for any period. She has been using a cane around her home.She has not attended physical therapy. She denies fevers, chills and has felt well otherwise. Todayshe rates her pain a 7/10 in severity. Previous office notes and relevant imaging studies were reviewed. Patient Active Problem List Diagnosis ??? Pancytopenia [...] ??? Thrombocytopenia (HCC-CMS) (HCC) ??? Abdominal pain Past Surgical History: Procedure Laterality Date [...] multiple ??? WRIST SURGERY Right after fracture PHYSICAL EXAM: She is well appearing and in no acute distress. Vitals signs and pain report reviewed. VAS 7/10 General: Well-appearing female in no acute distress. Mood and affect appropriate. A and O x3. Arises from seated position without pain, normal station with level pelvis in standing position. Bilateral lower extremities show equal motion of the hips and ankles. Patient experiences significant pain with sligh movement of bilateral extremities and light touch throughout both legs. Bilateral KNEE: Skin: Healthy appearing mobile incision ROM exam shows 0 to 110 motion. Manual muscle testing: Knee extension 3/5 and knee flexion 3/5 Stability testing shows no instability to AP or varus-valgus stress. No mal-alignment. No effusion. Positive patellofemoral crepitus. Bilateral quadricep atrophy Neurologic Exam: Intact light touch sensation below the knee. Vascular: 2+ PT 2+DP. Bilateral lower extremity 2+ pitting edema. IMAGING STUDY REVIEW: WB Bilat AP knees and lateral view today: personally reviewed these films which demonstrate total knee components on bilateral sides appear in stable position without hardware complications. Screw inanterior left tibia from prior TTP surgery appears in stable position ASSESSMENT: 61 y.o. female s/p bilateral TKA (2008, Dr. Rollins). Plain films today reveal stable appearing bilateral knee replacements. Patient having significant lower extremity edema and is currently treated with diuretics. This may be contributory. Patient also deconditioned with significant weakness of the quadriceps bilaterally PLAN: Today I provided reassurance to Gena regarding her stable appearing bilateral knee replacements.Given her multiple falls and generalized weakness, I have strongly encouraged her to attend some physical therapy for improved gait, balance and strength. She was receptive to this and a referral wasprovided today. We also discussed the importance of using a cane, walking stick or walker for better support/stability. She will continue pain management as prescribed by her PCP. She was encouraged to continue close follow-up with her PCP regarding her lower extremity swelling, of which she is currently on diuretics for. I would like to see her back in clinic in 3 to 4 months for reevaluation, however she was encouraged to follow-up sooner if symptoms worsen. Her questions were answered and she was reassured by this plan of care. Disposition: Follow-up in 3 to 4 months, sooner as needed Dr. Caldwell was the Orthopedic Attending present in the clinic, no additional consultation with Attending was needed for today's visit CC: Emigdio Veronica documented in this encounter Plan of Treatment Upcoming Encounters Date Type Department Care Team (Late st Contact Info) Description 01/04/2025 13:[address] [facility] Ophthalmology - [address] [id number] Gagandeep Rome MD [address] [place] [address] [address] [place] [phone] 02/11/2025 13:30 EDT Telemedicine [facility] Hematology & Oncology - [address] [phone] Dana Padilla MD [address] [place] [address] [address] [place] [phone] documented as of this encounter Visit Diagnoses Diagnosis History of total knee arthroplasty, bilateral- Primary documented in this encounter Care Teams Software Implementation Project Manager Relationship Specialty Start Date End Date Emigdio Veronica MD [address] [place] [phone] PCP - General Internal Medicine - Primary Care 05/22/20 02/21/24 Starr Paige MD [address] [place] [phone] Hematology 10/08/21 06/09/22 Dana Padilla MD [address] [place] [address] [address] [place] [phone] Hematology 01/13/22 06/09/22 documented as of this encounter
--- OUTSIDE RECORDS SUMMARY | 2024-11-22 17:07 | XMS_ITS | Encounter Summary ---
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 [...] Visit [facility] Ophthalmology - [address] [phone] Gagandeep Rome MD [address] [place] [address] 5 [place] [phone] 02/11/2025 13:30 EDT Telemedicine [facility] Hematology & Oncology - [address] [address] Dana aPdilla MD [address] [place] [phone] documented as of this encounter Visit Diagnoses Not on filedocumented in this encounter Care Teams Medical Education Coordinator Relationship Specialty Start Date End Date Emigdio Veronica MD [address] [place] [phone] PCP - General Internal Medicine - Primary Care 05/22/20 02/21/24 Starr Paige MD [address] [place] [phone] Hematology 10/08/21 06/09/22 Dana Padilla MD [address] [place] [phone] Hematology 01/13/22 06/09/22 documented as of this encounter
--- OUTSIDE RECORDS SUMMARY | 2024-11-22 17:08 | XMS_ITS | Encounter Summary ---
Author Organization [facility] Address [address] [place] [address] Care Team Providers Care Neurophysiology Tech Name Role Phone Emigdio Veronica MD Primary Care Provider + Starr Paige MD Unavailable [phone] Dana Padilla MD Unavailable Izabella Snowden [facility] Unavailable None, Provider Primary Care Provider UnavailGabriel Dacosta Primary Care Provider Mirna Guerrero Primary Care Provider + Reason for Visit * Reason Comments Other Encounter Details Date Type Department Care Team (Late st Contact Info) Description 01/05/2022 [facility] - [place] [address] [place] [address] Scottie Campuzano PA-C [address] [place] [phone] Other Social History Tobacco Use Types Packs/Day Years Used Date Smoking Tobacco: Some Days Cigarettes 0.3 35 Started: 08/20/1981; Last attempted to quit: 08/20/2016 Smokeless Tobacco: Never Alcohol Use Standard Drinks/Week [...] 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 MAX DAILY DOSE IS 40 MG PER DAY. 180 Tablet 1 01/06/2022 2 documented in this encounter Miscellaneous Notes * Telephone Encounter - Steven Bean RN - 01/06/2022 1265 EST Requested Prescriptions Pending Prescriptions Disp Refills ??? furosemide (LASIX) 20 mg tablet [Pharmacy Med Name: FUROSEMIDE 20 MG TABLET] 180 Tablet 1 Sig: TAKE 1 TAB BY MOUTH EVERY MORNING FOR FLUID IN LEGS IF SWELLING IS WORSE THAN USUAL THEN TAKE 2 EVERY MORNING. MAX DAILY DOSE IS 40 MG PER DAY. [facility] #[id number] - [address] Confirmed Pharmacy? Yes Patient out of medication? Unknown Last Refill Date: 09/18/21 Refills left? (explain exceptions requiring early refill) No Recent Visits Date Type Provider Dept 11/25/21 Office Visit Emigdio Veronica MD [facility] 11/11/21 Office Visit Scottie Campuzano PA-C [facility] 10/20/21 Office Visit Emigdio Veronica MD [facility] 10/08/21 Office Visit Emigdio Veronica MD [facility] 09/18/21 Office Visit Scottie Campuzano PA-C [facility] 07/22/21 Office Visit Scottie Campuzano PA-C [facility] 05/14/21 Office Visit Emigdio Veronica MD [facility] 04/29/21 Office Visit Emigdio Veronica MD [facility] 04/16/21 Office Visit Emigdio Veronica MD [facility] 04/10/21 Office Visit Emigdio Veronica MD [facility] Showing recent visits within past 540 days with a meds authorizing provider and meeting all other requirements Future Appointments Date Type Provider Dept 02/05/22 Appointment Emigdio Veronica MD [facility] Showing future appointments within next 150 days with a meds authorizing provider and meeting all other requirements Future appointment: Other - STEVEN BEAN RN 01/06/2022 7:59 documented in this encounter Plan of Treatment Upcoming Encounters Date Type Department Care Team (Late st Contact Info) Description 01/04/2025 13:00 EST Office Visit [facility] Ophthalmology - [address] [phone] Gagandeep Rome MD [address] [place] [address], [facility] [address] [place] [phone] 02/11/2025 13:30 EDT Telemedicine [facility] Hematology & Oncology [address] [phone] Dana Padilla MD [address] [place] [address], [facility] [address] [place] [phone] documented as of this encounter Visit Diagnoses Not on filedocumented in this encounter Discontinued Medications Medication Sig Discontinue Reason Start Date End Da te furosemide (LASIX) 20 mg tablet Take 1 every morning for fluid in legs; if swelling is worse than usual then take 2 every morning. Max daily dose is 40 mg per day. 09/18/2021 01/06/2022 documented as of this encounter Additional Health [...] documented as of this encounter Care Teams Neurophysiology Tech Relationship Specialty Start Date End Date Emigdio Veronica MD [address] [place] [phone] PCP - General Internal Medicine - Primary Care 05/22/20 02/21/24 None, Provider PCP - General 02/24/24 03/18/24 Gabriel Gandara PA PCP - General 03/19/24 09/11/24 Mirna Guerrero PA [address] [place] [phone] PCP - General 09/12/24 Starr Paige MD [address] [place] [address] Hematology 10/08/21 06/09/22 Dana Padilla MD [address] [facility], Level [address] [place] [phone] Hematology 01/13/22 06/09/22 Izabella Snowden, [facility] 1 [facility], 3rd [place] [address] E Commerce Architect 02/21/23 05/03/24 documented as of this encounter
--- OUTSIDE RECORDS SUMMARY | 2024-11-22 17:08 | XMS_ITS | Encounter Summary ---
Author Organization [facility] Address [address] [place] [address] Care Team Providers Care Business Info Consultant Name Role Phone Emigdio Veronica MD Primary Care Provider + Starr Paige MD Unavailable [phone] Reason for Visit * Reason Comments Rectal Bleeding Pt presents to ED vi a EMS from home with 5 days bilat Lower quadrant abd pain, with dark tarry stool a few days ago. Pt has COPD at baseline but noticed SOB getting worse just before dark stools. Pt has complicated hx, on lovenox for splenic embolisms and takes iron supplements every other day since 10/2021. Pt able to speak full sentences, fully vaccinated with booster, no known or questionable exposure to COVID, has not been around anyone sick. Pt does not smoke but roomates do. sats 98% RA. 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 No / Unsure 12/14/2021 13:10 EST documented as of this encounter Last Filed Vital Signs Vital Sign Reading Time Taken Comments Blood Pressure 102/57 12/14/2021 1600 EST Pulse - - Temperature 37 ??C (98.6 ??F) 12/14/2021 1307 EST Respiratory Rate 18 12/14/2021 1600 EST Oxygen Saturation 99% 12/14/2021 1600 EST Inhaled Oxygen Concentration - - Weight 89.4 kg (197 lb) 12/14/2021 1307 EST Height 160 cm (5' 3) 12/14/2021 1307 EST Body Mass Index 34.9 12/14/2021 1307 EST documented in this encounter Functional Status [...] Isabel Santiago RN documented in this encounter Discharge Instructions * Discharge Instructions* Anthony Bañuelos - 12/14/2021 15:56 EST Thank you for coming to the emergency department today. Today your very reassuring blood work without evidence of significant blood loss. Please follow- up with Dr. Padilla regarding your platelets. Please follow-up with your primary care doctor regarding medications for sleeping or for pain control, and with GI for your ulcer. If you have any worsening symptoms questions problems or concerns please return here for reevaluation. * Attachments The following attachments cannot be sent through Care Everywhere. * Abdominal Pain (Yemeni) documented in this encounter Medications at Time [...] at bedtime. 60 Tablet 2 11/25/2021 2 enoxaparin (LOVENOX) 60 mg/0.6 mL injection Inject 60 mg into the skin daily. 18 mL 2 11/09/2021 2 ferrous sulfate 324 mg (65 mg iron) tablet,delayed release (DR/EC) Take 1 Tablet by mouth every 48 hours. 30 Tablet 3 11/11/2021 2 furosemide (LASIX) 20 mg tablet Take 1 every morning for fluid in legs; if swelling is worse than usual then take 2 every morning. Max daily dose is 40 mg per day. 180 Tablet 1 09/18/2021 2 levothyroxine (SYNTHROID) 25 mcg tablet Take 1 Tablet by mouth daily before breakfast. 90 Tablet 1 11/11/2021 2 mupirocin (BACTROBAN) 2 % ointment Apply 3 times a day for 1 week for painful sore on lower right leg. 30 g 09/18/2021 2 ondansetron (ZOFRAN-ODT) 4 mg disintegrating tablet Take 1 Tablet by mouth every 4 to 6 hours as needed for Nausea. 21 Tablet 11/25/2021 2 oxyCODONE (ROXICODONE) 5 mg immediate release tablet Take 1 Tablet by mouth every 6 hours as needed for Pain. Daily Max: 15 mg 84 Tablet 11/25/2021 2 pantoprazole (PROTONIX) 40 mg tablet Take 1 Tablet by mouth 2 times daily. 30 Tablet 3 10/17/2021 2 sertraline (ZOLOFT) 50 mg tablet TAKE 1 TABLET BY MOUTH EVERY DAY 90 Tablet 1 10/06/2021 2 spironolactone (ALDACTONE) 50 mg tablet TAKE 1 TABLET BY MOUTH EVERY DAY 90 Tablet 1 09/09/2021 2 sucralfate (CARAFATE) 1 gram tablet Take 1 Tablet by mouth 4 times daily. 120 Tablet 3 12/10/2021 2 sucralfate (CARAFATE) 100 mg/mL suspension Take 10 mL by mouth 4 times daily (before meals and at bedtime). 420 mL 2 12/09/2021 2 SYMBICORT 160-4.5 mcg/actuation HFA aerosol inhaler inhalerIndications:C OPD with asthma ([facility]) INHALE 2 PUFFS DIRECTED DAILY. 10.2 Each 1 11/09/2021 2 traZODone (DESYREL) 150 mg tablet Take 2 Tablets by mouth at bedtime. 180 Tablet 1 12/10/2021 2 documented as of this encounter Discharge Disposition Disposition Code Departure Means Destination Home or Self Jail documented in this encounter ED Notes * Karol Mejia MD - 12/14/2021 1408 EST This patient received an evaluation and medical screening exam for emergent medical conditions at the [facility] on 12/14/2021 Scribe attestation: This documentation is recorded by Anthony Bañuelos acting as Scribe under the direction and presence of Karol Mejia MD. Karol Mejia MD: I personally performed the services recorded by the scribe in my presence. I confirm the scribe's documentation has been reviewed by me to accurately and completely record my work, treatment, procedures, and medical decision making. HPI Tara Boothe is a 61 y.o. female with a PMH including a recent admission for a GI bleed, as wellas history of portal vein thrombosis treated with Lovenox that was then stopped due to thrombocytopenia and intermittent GI bleed, she also is status post splenic embolization, has history of COPD with worsening shortness of breath, and nonalcoholic fatty liver disease, hypothyroidism, chronic painsyndrome, and peptic ulcer disease who presents to the ED with rectal bleeding and shortness of breath. In September 2021 she had a 9-day admission with 3 EGDs requiring transfusions and findings of alarge posterior duodenal ulcer and pyloric ulcer. Since that time the patient has been at home withone brief episode of GI bleeding that she describes as black tarry stool and coffee-ground emesis that resolved on its own. She states he has been taking her pantoprazole twice a day, and over the last day has developed black tarry stool, worsening shortness of breath, and an episode of dark emesiswithout any bright red blood. The patient denies any alcohol use, she denies any significant smoking history, she denies any bright red blood per rectum or bright red blood in her emesis, she states her last episode of black tarry stool occurred last night and she has had no further episodes over the course the day today but does describe some intermittent crampy belly pain without bowel movement. She is passing gas without difficulty. History was provided by: The patient and medical record Patient's pertinent PMH, FH, SH were reviewed and updated PRN. ROS A 10-point review of systems was performed. The patient answered negative to all of the questions with the exceptions of those explicitly detailed as positive in the HPI. Pertinent negatives are alsoexplicitly stated. Physical Exam Vital Signs Temp: 37 ??C (98.6 ??F) Temp src: Temporal Heart Rate: 77 BPM Resp: 14 SpO2: 100 % BP: 107/64 BP MAP: 78 mm Hg BP Device: BP Machine BP Patient Position: Semi fowlers BP Cuff Location: Left arm O2 Device: None (Room air) Nursing notes and vital signs were reviewed. Constitutional: Well appearing, in no acute distress Eyes: Pupils equal and reactive to light, no scleral icterus Mouth: Moist oral mucosa without apparent lesions Heart: RRR without MRG Lungs: Clear to ascultation, mild tachypnea but no marked increased work of breathing Abdomen: Obese, soft, nontender, nondistended, no stool on digital rectal exam guaiac negative (butno real significant stool sample) Skin: No overt rashes on exposed skin Extremities: Moving spontaneously, warm and well perfused Neuro: Grossly neurologically intact with normal speech Psych: No agitation or overt thought disorder Medical Decision Making Multiple etiologies were considered for this patient's symptoms including recurrent upper GI bleed also considered significant anemia, Covid infection, pneumonia considered but doubt lower GI bleed and vital signs and exam reassuring for no hemodynamic instability. Laboratory Results Labs Reviewed COMPLETE BLOOD COUNT AND DIFFERENTIAL - Abnormal Result Value Status WBC 4.83 Final RBC 4.32 Final Hemoglobin 11.9 Final HCT 36.7 Final MCV 85 Final MCH 27.5 Final MCHC 32.4 Final RDW-CV 16.5 (*) Final RDW-SD 51.4 (*) Final PLT 140 (*) Final MPV 9.8 Final Neutrophils 80.0 Final Lymphocytes 7.7 Final Monocytes 10.1 Final Eosinophils 1.0 Final Basophils 0.8 Final Immature Grans 0.4 Final Absolute Neutrophils 3.86 Final Absolute Lymphocytes 0.37 (*) Final Absolute Monocytes 0.49 Final Absolute Eosinophils 0.05 Final Absolute Basophils 0.04 Final Absolute Immature Grans 0.02 Final Type of Differential: Auto Final INFLUENZA A AND B,RSV PCR - Normal FLU A RNA Result (FLARES) Negative Final FLU B RNA Result (FLBRES) Negative Final RSV RNA Result (RSVRES) Negative Final COMPREHENSIVE METABOLIC PANEL (CMP) - Normal Sodium 137 Final Potassium 4.4 Final Chloride 104 Final CO2 Total 24 Final Glucose 89 Final BUN 16 Final Creatinine 0.81 Final eGFR 79 Final Total Protein 7.4 Final Albumin 3.8 Final Alkaline Phosphatase 117 Final AST 32 Final ALT 12 Final Bilirubin, Total 0.7 Final Calcium 9.0 Final Albumin/Globulin Ratio 1.1 Final Anion Gap 9 Final PROTIME - Normal I.N.R. 1.1 Final Pro Time 12.5 Final Narrative: Moderate Intensity Coumadin INR = 2.0-3.0 Adjustments in anticoagulant therapy dose should be based on the INR and NOT on the Protime. PTT - Normal PTT 36 Final COVID-19 TESTING COVID-19 rt-PCR Result Negative Final Performing Lab GeneXpert [facility] Final COVID-19 TEST [facility] PCR HOLD GREEN TOP Hold Hold Final BLOOD BANK HOLD Hold BB Hold Final TYPE AND SCREEN ABO O Final Rh Factor Positive Final Antibody Screen Negative Final Specimen Expires: 12/17/2021 @ 23:59 Final Data Interpretation An EKG was obtained and independently interpreted: Normal sinus rhythm rate [address] elevation or depression there are some nonspecific T wave flattening through the lateral leads. Imaging obtained was reviewed and independently interpreted: XR Chest: 1. Discoid atelectasis in the left lower lobe 2. Stable mild interstitial prominence Laboratory results independently reviewed, significant for: Reassuring hemoglobin of 11.9 up from 9.2, normal electrolytes and renal function. COVID, influenza, and RSV negative. Procedures Procedures ED Course A medical screening exam was performed. Tara Boothe is a 61 y.o. female with PMH i including a recent admission for a GI bleed with large duodenal and pyloric ulcer requiring transfusion, as well as history of portal vein thrombosis treated with Lovenox that was then stopped due to thrombocytopenia and intermittent GI bleed, she alsois status post splenic embolization, has history of COPD with worsening shortness of breath, and nonalcoholic fatty liver disease, hypothyroidism, chronic pain syndrome, and peptic ulcer disease. Physical exam was significant for hemodynamically stable patient with no active melena or vomiting. Her labs showed a reassuring hemoglobin trending upwards, normal electrolytes and renal function, and negative COVID. Her EKG showed NSR with no ST elevation or depression. XR Chest showed discoid atelectasis in the left lower lobe and stable mild interstitial prominence. 1438: Patient given 40mg of Protonix, 4mg of Zofran, and 0.5mg of Dilaudid IV Patient reassessed at bedside and found to have improved symptoms. Discussed reassuring results of workup with the patient and plan for discharge with follow up with Dr Padilla and her PCP. Supportive measures advised. Patient agrees with plan. Prior to discharge usual and customary precautions were reviewed with the patient and/or family including follow-up instructions and reasons to return to the Emergency Department if condition worsens, does not improve as expected, or other new concerns arise. While under my care in the Emergency Department, the patient's pain was managed to an adequate level weighing risk vs. benefit of medication. Clinical Impression Final diagnoses: Shortness of breath Pain of upper abdomen Disposition Discharged Disposition decisions were made weighing risks and benefits of hospitalization vs. outpatient treatment, the risk for further decompensation, and the patient's wishes. The patient was stable, improved, or requested discharge. Prior to discharge my usual and customaryreturn precautions were reviewed with the patient and/or family. This included follow-up instructions and reasons to return to the Emergency Department if condition worsens, does not improve as expected, or other new concerns arise. At the end of my care of the patient, the patient's pain was 1 on a zero to ten scale. Any further pain treatment will be at the discretion of the provider following up with the patient based on their clinical assessment. * Anastasia Huang RN - 12/14/2021 1307 EST Chief Complaint Patient presents with ??? Rectal Bleeding Pt presents to ED via EMS from home with 5 days bilat Lower quadrant abd pain, with dark tarry stool a few days ago. Pt has COPD at baseline but noticed SOB getting worse just before dark stools. Pt has complicated hx, on lovenox for splenic embolisms and takes iron supplements every other day since 10/2021. Pt able to speak full sentences, fully vaccinated with booster, no known or questionable exposure to COVID, has not been around anyone sick. Pt does not smoke but roomates do. sats 98% RA. ??? Shortness of Breath BP 107/64 (BP Cuff Location: Left arm, BP Patient Position: Semi fowlers) Temp 37 ??C (98.6 ??F) (Temporal) Resp 14 Ht 160 cm (63) Wt 89.4 kg (197 lb) SpO2 100% BMI 34.90 kg/m?? RNINO * Darshan Palacio - 12/14/2021 1257 EST POS COVID SCREEN TCALL: MANOJ BOOTHE. 9.6.60. PT REFERRED FOR NEW ONSET OF VOMITING WITH BLOOD, DARK TARRY STOOLS, FATIGUE, AND SHORTNESS OF BREATH. HX GIB. documented in this encounter Plan of Treatment Upcoming Encounters Date Type Department Care Team (Late st Contact Info) Description 01/04/2025 13:00 EST Office Visit [facility] Ophthalmology - [address] [phone] Gagandeep Rome MD [address] [facility], [address] [place] [address] 02/11/2025 13:30 EDT Telemedicine [facility] Hematology & Oncology - [address] [address] Dana Padilla MD [address] [facility], [address] [place] [id number] documented as of this encounter Procedures Procedure Name Priority Date/Time Associated Diagnosis Comments ECG REPORT - SCANNED 12/14/2021 15:15 EST XR CHEST PORTABLE 1 VIEW STAT 12/14/2021 14:36 EST HOLD GREEN TOP Routine 12/14/2021 14:30 EST POCT US ED GUIDANCE PIV 12/14/2021 14:20 EST EKG 12-LEAD STAT 12/14/2021 14:06 EST [facility] [facility] 12/14/2021 13:49 EST COVID-19 TESTING STAT 12/14/2021 13:4 9 EST ZZHN INFLUENZA A AND B, RSV PCR STAT 12/14/2021 13:49 EST PTT STAT 12/14/2021 13:49 EST PROTIME STAT 12/14/2021 13:49 EST COMPLETE BLOOD COUNT AND DIFFERENTIAL STAT 12/14/2021 13:49 EST BLOOD BANK HOLD Routine 12/14/2021 13:49 EST TYPE AND SCREEN STAT 12/14/2021 13:49 EST COMPREHENSIVE METABOLIC PANEL (CMP) STAT 12/14/2021 13:49 EST documented in this encounter Results * ECG REPORT - SCANNED (12/14/2021 15:15 EST) 12/14/2021 15:1 5 EST us Scan 2 Food Processing Scientist PROCEDURE/MINOR SURGICAL OR DERABLES Final Result * XR CHEST PORTABLE 1 VIEW (12/14/2021 14:36 EST) Anatomical Region Laterality Modality Computed Radiogr aphy 12/14/2021 16:0 4 EST Impressions 12/14/2021 16:04 EST 1. ??Discoid atelectasis in the left lower lobe 2. ??Stable mild interstitial prominence I have personally reviewed the images and the above interpretation and agree with the findings. Narrative 12/14/2021 16:04 EST XR CHEST PORTABLE 1 VIEW ??12/14/2021 2:30 PM CLINICAL HISTORY/COMMENTS: shortness of breath COMPARISON: CT chest the 2020 and chest radiograph 07/14/2021. FINDINGS: Single portable AP view of the chest. Lines/tubes: ??None. Soft tissues, bones and extrathoracic findings: Moderate degenerative change of both acromioclavicular joints. Cardiac and mediastinal contours: The cardiomediastinal silhouette is normal in size and contour. Lungs: The pulmonary vasculature is normal. Linear opacity in the left lung base. Unchanged interstitial prominence Pleura: No visible pleural abnormality. Procedure Note Brandy Zhao MD - 12/14/2021 XR CHEST PORTABLE 1 VIEW 12/14/2021 2:30 PM CLINICAL HISTORY/COMMENTS: shortness of breath COMPARISON: CT chest the 2020 and chest radiograph 07/14/2021. FINDINGS: Single portable AP view of the chest. Lines/tubes: None. Soft tissues, bones and extrathoracic findings: Moderate degenerativechange of both acromioclavicular joints. Cardiac and mediastinal contours: The cardiomediastinal silhouette isnormal in size and contour. Lungs: The pulmonary vasculature is normal. Linear opacity in the leftlung base. Unchanged interstitial prominence Pleura: No visible pleural abnormality. IMPRESSION 1. Discoid atelectasis in the left lower lobe 2. Stable mild interstitial prominence I have personally reviewed the images and the above interpretation andagree with the findings. us Karol Mejia MD IMG DIAGNOSTIC IMAGING ORDERA BLES Final Result * HOLD GREEN TOP (12/14/2021 14:30 EST) Hold Hold 12/14/2021 15:46 EST [facility] Blood VENOUS BLOOD / Unknown Venipuncture / Unknown 12/14/2021 14:30 EST 12/14/2021 14:36 EST us Karol Mejia MD LAB INFO SERVICE AND SUPPORT & PHONE RESULT Final Result Performing Organization Address City/State/[facility] Co de Phone Number [facility] [address] [place] [address] * POCT US ED GUIDANCE PIV (12/14/2021 14:20 EST) Anatomical Region Laterality Modality Other 12/14/2021 14:2 0 EST Narrative 12/15/2021 12:38 EST Study Date and Time: 2021-12-14 14:20 Study Author: Darshan Palacio IVT ED Procedural Guidance - PIV: Indications: [...] ?Comments: N/A Signed by Darshan MICHAEL on 2021-12-14 17:20 Physician Attestation: I reviewed and independently interpreted these images. ??I was present for the brown and critical portions of the ultrasound imaging and agree with or have edited the findings as documented. Final Signature by Kathleen ARCHER on 2021-12-15 12:38 Procedure Note Kathleen Castro MD - 12/15/2021 Study Date and Time: 2021-12-14 14:20 Study Author: Darshan MICHAEL ED Procedural Guidance [...] Comments: N/A Signed by Darshan MICHAEL on 2021-12-14 17:20 Physician Attestation: I reviewed and independently interpreted theseimages. I was present for the brown and critical portions of the ultrasoundimaging and agree with or have edited the findings as documented. Final Signature by Kathleen ARCHER on 2021-12-15 12:38 us Kathleen Castro MD IMG POCT US ORDERABLE S Final Result * EKG 12-LEAD (12/14/2021 14:06 EST) 12/14/2021 14:0 6 EST Narrative [facility] - 12/14/2021 15:12 EST ?[facility] Emergency ? Test Date: ?2021-12-14 Pat Name: ? PHYLISS BOOTHE ?Department: ?? ED ? Room: ? AC07 Gender: ? Female ? Development Manager: ?? [id number] : ?1960 ? Requested By: ANALI Irizarry Order Number: [id number] ? Reading MD: ?? AHGERMÁN LUNDBERG MD ? Measurements Intervals ?[place] ? Rate: ? 79 ? P: ?65 UT: ? 153 ?QRS: ?67 QRSD: ? 91 ? T: ?44 QT: ? 386 ? QTc: ?443 ? Interpretive Statements SINUS RHYTHM NONSPECIFIC T-WAVE ABNORMALITY I reviewed the tracing and have either agreed or edited the findings in this report. Electronically Signed On 12-14-2021 15:12:59 EST by AVRIL LUNDBERG MD. Procedure Note Avril Lundberg MD - 12/14/2021 [facility] Emergency Test Date: 2021-12-14 Pat Name: TARA BOOTHE Department: ED Room: [facility] Gender: Female Development Manager: [id number] : 1960 Requested By: ANALI Irizarry Order Number: [id number] Reading MD: AVRIL LUNDBERG MD Measurements Intervals [place] Rate: 79 P: 65 UT: 153 QRS: 67 QRSD: 91 T: 44 QT: 386 QTc: 443 Interpretive Statements SINUS RHYTHM NONSPECIFIC T-WAVE ABNORMALITY I reviewed the tracing and have either agreed or edited the findings inthis report. Electronically Signed On 12-14-2021 15:12:59 EST by AVRIL MILES. us Karol Mejia MD CARDIAC ECG ORDERABLES Final Result [facility] E[facility] * COVID-19 TEST [facility] PCR (12/14/2021 13:49 EST) Swab ENTIRE NASOPHARYNX / Unknown Swab / Unknown 12/14/2021 13:49 EST 12/14/2021 14:37 EST Karol Mejia MD MICROBIOLOGY - GENERAL ORDERA BLES Final Result Performing Organization Address [facility]/ZIP Co de Phone Number [facility] [address] [place] [address] * COVID-19 TESTING (12/14/2021 13:49 EST) COVID-19 rt-PCR Result Negative Negative 12/14/2021 15:52 EST [facility] Comment: This test [...] history, and epidemiological information. Performed on the [employer] GeneXpert Instrument Performing Lab GeneXpert [facility] 12/14/2021 15:52 EST [facility] Swab ENTIRE NASOPHARYNX / Unknown Swab / Unknown 12/14/2021 13:49 EST 12/14/2021 14:37 EST us Karol Mejia MD MICROBIOLOGY - GENERAL ORDERA BLES Final Result Performing Organization Address City/[facility]/ZIP Co de Phone Number [facility] [address] [place] [address] * INFLUENZA A AND B,RSV PCR (12/14/2021 13:49 EST) FLU A RNA Result (FLARES) Negative Negative 12/14/2021 15:52 EST [facility] FLU B RNA Result (FLBRES) Negative Negative 12/14/2021 15:52 EST [facility] RSV RNA Result (RSVRES) Negative Negative 12/14/2021 15:52 EST [facility] Swab ENTIRE NASOPHARYNX / Unknown Swab / Unknown 12/14/2021 13:49 EST 12/14/2021 14:37 EST Karol Mejia MD MICROBIOLOGY - GENERAL ORDERA BLES Final Result Performing Organization Address [facility] Co de Phone Number [facility] [address] [place] [address] * PTT (12/14/2021 13:49 EST) PTT 36 26 - 37 secs 12/14/2021 15:19 EST [facility] Blood VENOUS BLOOD / Unknown Venipuncture / Unknown 12/14/2021 13:49 EST 12/14/2021 14:36 EST Alexis Francis MD HEMATOLOGY & PF4 ORDERABLE S Final Result Performing Organization Address [facility] de Phone Number [facility] [address] [place] [address] * PROTIME (12/14/2021 13:49 EST) I.N.R. 1.1 0.9 - 1.1 Ratio 12/14/2021 15:19 EST [facility] Pro Time 12.5 10.4 - 12.6 secs 12/14/2021 15:19 EST [facility] Blood VENOUS BLOOD / Unknown Venipuncture / Unknown 12/14/2021 13:49 EST 12/14/2021 14:36 EST Narrative [facility] - 12/14/2021 15:19 EST Moderate Intensity Coumadin INR = 2.0-3.0 Adjustments in anticoagulant therapy dose should be based on the INR and NOT on the Protime. Alexis Francis MD HEMATOLOGY & PF4 ORDERABLE S Final Result Performing Organization Address [facility]/ZIP Co de Phone Number [facility] [address] [place] [address] * TYPE AND SCREEN (12/14/2021 13:49 EST) ABO O 12/14/2021 15:22 [facility] BLOOD B[facility] Rh Factor Positive 12/14/2021 15:22 [facility] Antibody Screen Negative 12/14/2021 15:22 [facility] Specimen Expires: 12/17/2021 @ 23:59 12/14/2021 15:22 [facility]LOOD [facility] Blood VENOUS BLOOD / Unknown Venipuncture / Unknown 12/14/2021 13:49 EST 12/14/2021 14:41 EST us Alexis Francis MD BLOOD BANK TESTS Edited Re sult - Final Performing Organization Address [facility] de Phone Number [facility] [address] [place] [address] * COMPREHENSIVE METABOLIC PANEL (CMP) (12/14/2021 13:49 EST) Sodium 137 136 - 145 mmol/L 12/14/2021 14:27 [facility] Potassium 4.4 3.5 - 5.0 mmol/L 12/14/2021 14:27 [facility] Comment:Slight hemolysis rell ntified, interpret with caution as hemolysis will elevate potassium result. Chloride 104 96 - 110 mmol/L 12/14/2021 14:27 [facility] CO2 Total 24 22 - 32 mmol/L 12/14/2021 14:27 [facility] Glucose 89 70 - 100 mg/dL 12/14/2021 14:27 [facility] BUN 16 10 - 26 mg/dL 12/14/2021 14:27 [facility] Comment: Slight hemolysis identified, interpret with caution as results may be affected due to hemolysis. Creatinine 0.81 0.52 - 1.04 mg/dL 12/14/2021 14:27 [facility] eGFR 79 >60 mL/min/1.7 3m2 12/14/2021 14:27 [facility] Total Protein 7.4 6.3 - 8.2 g/dL 12/14/2021 14:27 [facility] Comment:Slight hemolysis rell ntified, interpret with caution as results may be affected due to hemolysis. Albumin 3.8 3.4 - 4.9 g/dL 12/14/2021 14:27 [facility] Comment:Slight hemolysis rell ntified, interpret with caution as results may be affected due to hemolysis. Alkaline Phosphatase 117 38 - 126 U/L 12/14/2021 14:27 [facility] Comment:Slight hemolysis rell ntified, hemolysis will decrease ALKP result. Interpret with caution as results may be affected due to hemolysis. AST 32 15 - 46 U/L 12/14/2021 14:27 [facility] Comment:Slight hemolysis rell ntified, interpret with caution as results may be affected due to hemolysis. ALT 12 <35 U/L 12/14/2021 14:27 [facility] Bilirubin, Total 0.7 <1.4 mg/dL 12/14/19 14:27 [facility] Calcium 9.0 8.5 - 10.5 mg/dL 12/14/2021 14:27 [facility] Albumin/Globulin Ratio 1.1 1.0 - 2.5 12/14/2021 14:27 [facility] Anion Gap 9 8 - 16 12/14/2021 14:27 [facility] Blood VENOUS BLOOD / Unknown Venipuncture / Unknown 12/14/2021 13:49 EST 12/14/2021 14:08 EST us Alexis Francis MD CHEMISTRY & BLOOD GAS DEMI CARDENAS Final Result [facility] [address] [place] [address] * (ABNORMAL) COMPLETE BLOOD COUNT AND DIFFERENTIAL (12/14/2021 13:49 EST) WBC 4.83 4.00 - 12.40 K/cmm 12/14/2021 14:53 [facility] RBC 4.32 3.86 - 5.04 M/cmm 12/14/2021 14:53 [facility] Hemoglobin 11.9 11.6 - 15.2 gm/dL 12/14/2021 14:53 [facility] HCT 36.7 34.9 - 44.4 % 12/14/2021 14:53 [facility] MCV 85 81 - 98 fl 12/14/2021 14:53 [facility] MCH 27.5 26.7 - 33.3 pg 12/14/2021 14:53 [facility] MCHC 32.4 32.1 - 35.9 gm/dL 12/14/2021 14:53 [facility] RDW-CV 16.5(H) <14.7 % 12/14/2021 14:53 [facility] RDW-SD 51.4(H) <50.4 fl 12/14/2021 14:53 [facility] PLT 140(L) 141 - 377 K/cmm 12/14/2021 14:53 [facility] MPV 9.8 9.5 - 12.7 fl 12/14/2021 14:53 [facility] % Neutrophils 80.0 % 12/14/2021 14:53 [facility] % Lymphocytes 7.7 % 12/14/2021 14:53 [facility] % Monocytes 10.1 % 12/14/2021 14:53 [facility] % Eosinophils 1.0 % 12/14/2021 14:53 [facility] % Basophils 0.8 % 12/14/2021 14:53 [facility] % Immature Grans 0.4 % 12/14/19 14:53 [facility] Absolute Neutrophils 3.86 2.20 - 8.85 K/cmm 12/14/2021 14:53 [facility] Absolute Lymphocytes 0.37(L) 1.09 - 3.30 K/cmm 12/14/2021 14:53 [facility] Absolute Monocytes 0.49 0.10 - 0.80 K/cmm 12/14/2021 14:53 [facility] Absolute Eosinophils 0.05 0.03 - 0.61 K/cmm 12/14/2021 14:53 [facility] ABS Basophils 0.04 0.01 - 0.11 K/cmm 12/14/2021 14:53 [facility] Absolute Immature Grans 0.02 0.00 - 0.06 K/cmm 12/14/2021 14:53 [facility] Type of Differential: Auto 12/14/2021 14:53 [facility] Blood VENOUS BLOOD / Unknown Venipuncture / Unknown 12/14/2021 13:49 EST 12/14/2021 14:36 EST us Alexis Francis MD PACKAGES & DNA PROBE ORDER YANN Final Result Performing Organization Address [facility] Co de Phone Number [facility] [address] [place] [address] * BLOOD BANK HOLD (12/14/2021 13:49 EST) Hold BB Hold 12/14/2021 15:46 [facility] Blood VENOUS BLOOD / Unknown Venipuncture / Unknown 12/14/2021 13:49 EST 12/14/2021 14:41 EST us Karol Mejia MD BLOOD BANK TESTS Final Result Performing Organization Address [facility] Co de Phone Number [facility] [address] [place] [address] documented in this encounter Visit Diagnoses Diagnosis Shortness of breath- Primary Pain of upper abdomen Abdominal pain, other specified site documented in this encounter Administered Medications Inactive Administered Medications - up to 3 most recent administrations Medication Order MAR Action Action Date Dose Rate Site HYDROmorphone (PF) (DILAUDID) 0.5 mg/0.5 mL syringe 0.5 mg 0.5 mg, intravenous, NOW X1, 1 dose, On Tue12/14/21 at 1445, STAT Given 12/14/2021 14:38 EST 0.5 mg ondansetron (PF) (ZOFRAN) injection 4 mg 4 mg, intravenous, NOW X1, 1 dose, On Tue12/14/21 at 1445, STAT Given 12/14/2021 14:38 EST 4 mg ondansetron (ZOFRAN-ODT) disintegrating tablet 4 mg 4 mg, oral, NOW X1, 1 dose, On Tue12/14/21 at 1600, STAT Given 12/14/2021 16:16 EST 4 mg oxyCODONE (ROXICODONE) immediate release tablet 5 mg 5 mg, oral, NOW X1, 1 dose, On Tue12/14/21 at 1600, STAT Given 12/14/2021 16:16 EST 5 mg pantoprazole (PROTONIX) injection 40 mg 40 mg, intravenous, NOW X1, 1 dose, On Tue12/14/21 at 1430, STAT Given 12/14/2021 14:38 EST 40 mg documented in this encounter Active and Recently Administered Medications Times are shown in EST. Scheduled Medication Order 12/12/2021 12/13/2021 12/14/2021 HYDROmorphone (PF) (DILAUDID) 0.5 mg/0.5 mL syringe 0.5 mg (COMPLETED) 0.5 mg, intravenous, NOW X1, 1 dose, On Tue12/14/21 at 1445, STAT 1438 (Given - Provid er: Anastasia Huang RN) ondansetron (PF) (ZOFRAN) injection 4 mg (COMPLETED) 4 mg, intravenous, NOW X1, 1 dose, On Tue12/14/21 at 1445, STAT 1438 (Given - Provid er: Anastasia Huang RN) ondansetron (ZOFRAN-ODT) disintegrating tablet 4 mg (COMPLETED) 4 mg, oral, NOW X1, 1 dose, On Tue12/14/21 at 1600, STAT 1616 (Given - Provid er: Anastasia Huang RN) oxyCODONE (ROXICODONE) immediate release tablet 5 mg (COMPLETED) 5 mg, oral, NOW X1, 1 dose, On Tue12/14/21 at 1600, STAT 1616 (Given - Provid er: Anastasia Huang RN) pantoprazole (PROTONIX) injection 40 mg (COMPLETED) 40 mg, intravenous, NOW X1, 1 dose, On 12/14/21 at 1430, STAT 1438 (Given - Provid er: Anastasia Huang RN) documented in this encounter Additional Health Concerns Infection Onset Date Last Indicated Resolved Time R/O COVID-19 12/14/2021 12/14/2021 12/19/2021 22:1 5 EST documented as of this encounter Care Teams Business Info Consultant Relationship Specialty Start Date End Date Emigdio Veronica MD [address] [place] [phone] PCP - General Internal Medicine - Primary Care 05/22/20 02/21/24 Starr Paige MD [address] [place] [phone] Hematology 10/08/21 06/09/22 documented as of this encounter
--- OUTSIDE RECORDS SUMMARY | 2024-11-22 17:08 | XMS_ITS | Encounter Summary ---
Author Organization [facility] Address [address] [place] [address] Care Team Providers Care Greige Goods Marker Name Role Phone Emigdio Veronica MD Primary Care Provider + Starr Paige MD Unavailable [phone] Encounter Details Date Type Department Care Team (Late st Contact Info) Description 12/16/2021 Orders Only [facility] Center Hematology & Oncology - [facility] [address] [place] [address] Maritza Miller, RN [address] [place] [address] Portal vein thrombosis (Primary Dx); Superior mesenteric vein thrombosis (HCC-CMS) (HCC); Primary hypercoagulable state (HCC-CMS) Social History Tobacco Use Types Packs/Day [...] 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 60 Tablet 6 12/16/2021 documented in this encounter Plan of Treatment Upcoming Encounters Date Type Department Care Team (Late st Contact Info) Description 01/04/2025 13:00 EST Office Visit [facility] Ophthalmology - [address] [phone] Gagandeep Rome MD [address] [place] [address], [facility] [address] [place] [phone] 02/11/2025 13:30 EDT Telemedicine [facility] Hematology & Oncology [address] [phone] Dana Padilla MD [address] [place] [address] 2 [place] [phone] documented as of this encounter Visit Diagnoses Diagnosis Portal vein thrombosis- Primary Superior mesenteric vein thrombosis (HCC-CMS) Acute vascular insufficiency of intestine Primary hypercoagulable state (HCC-CMS) Primary hypercoagulable state documented in this encounter Discontinued Medications Medication Sig Discontinue Reason Start Date End Da te enoxaparin (LOVENOX) 60 mg/0.6 mL injection Inject 60 mg into the skin daily. 11/09/2021 12/16/2021 documented as of this encounter Additional Health Concerns Infection Onset Date Last Indicated Resolved Time R/O COVID-19 12/14/2021 12/14/2021 12/19/2021 22:1 5 EST documented as of this encounter Care Teams Greige Goods Marker Relationship Specialty Start Date End Date Eimgdio Veronica MD [address] [place] [phone] PCP - General Internal Medicine - Primary Care 05/22/20 02/21/24 Starr Paige MD [address] [place] [phone] Hematology 10/08/21 06/09/22 documented as of this encounter
--- OUTSIDE RECORDS SUMMARY | 2024-11-22 17:08 | XMS_ITS | Encounter Summary ---
Author Organization [facility] Address [address] [place] [address] Care Team Providers Care Operational Intelligence Officer Name Role Phone Emigdio Veronica MD Primary Care Provider + Starr Paige MD Unavailable [phone] Reason for Visit * Reason Onset Date Comments Appointment Related 12/07/2021 Encounter Details Date Type Department Care Team (Late st Contact Info) Description 12/07/2021 Telephone [facility] Cancer [facility] Hematology & Oncology - [address] [phone] Dana Padilla MD [address] [facility] [address] [place] [phone] Appointment Related Social History Tobacco [...] 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 Answer Date of Assessment Author No 11/03/2021 16:08 Isabel Jimenez RN * Are you blind or do [...] * Telephone Encounter - Juliet Livingston - 12/07/2021 1350 EST lmom of upcoming 6mo Follow up with Valerie, Also reminded of labs in 3mo and 6mo just prior to appt. In May in person. Left call back # documented in this encounter Plan of Treatment Upcoming Encounters Date Type Department Care Team (Late st Contact Info) Description 01/04/2025 13:00 EST Office Visit [facility] Ophthalmology - [address] [phone] Gagandeep Rome MD [address] [place] [address] 5 [place] [phone] 02/11/2025 13:30 EDT Telemedicine [facility] Hematology & Oncology - [address] [phone] Dana Padilla MD [address] [place] [address], [facility] [address] [place] [phone] documented as of this encounter Visit Diagnoses Not on filedocumented in this encounter Care Teams Operational Intelligence Officer Relationship Specialty Start Date End Date Emigdio Veronica MD [address] [place] [phone] PCP - General Internal Medicine - Primary Care 05/22/20 02/21/24 Starr Paige MD [facility] [address] [place], [place] [phone] Hematology 10/08/21 06/09/22 documented as of this encounter
--- OUTSIDE RECORDS SUMMARY | 2024-11-22 17:08 | XMS_ITS | Encounter Summary ---
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 30 Tablet 3 01/05/2022 03/22/2022 documented in this encounter Miscellaneous Notes * Telephone Encounter - Ebony Toscano - 01/05/2022 1258 EST Requested Prescriptions Pending Prescriptions Disp Refills ??? pantoprazole (PROTONIX) 40 mg tablet 30 Tablet 3 Sig: Take 1 Tablet by mouth 2 times daily. [id number] - [place] - [address] [place] [address] Dr Confirmed Pharmacy? Yes Patient out of medication? Yes: Needs Refill Now Last Refill Date: 10.17.21 Refills left? (explain exceptions requiring early refill) No Recent Visits Date Type Provider Dept 11/25/21 Office Visit Emigdio Veronica MD [place] [facility] 11/11/21 Office Visit Scottie Campuzano PA-C [facility] 10/20/21 Office Visit Emigdio Veronica MD [facility] 10/08/21 Office Visit Emigdio Veronica MD [facility] 09/18/21 Office Visit Scottie Campuzano PA-C [place] [facility] 07/22/21 Office Visit Scottie Campuzano PA-C [facility] 05/14/21 Office Visit Emigdio Veronica MD [facility] 04/29/21 Office Visit Emigdio Veronica MD [facility] 04/16/21 Office Visit Emigdio Veronica MD [facility] 04/10/21 Office Visit Emigdio Veronica MD [facility] Showing recent visits within past 540 days with a meds authorizing provider and meeting all other requirements Future Appointments Date Type Provider Dept 02/05/22 Appointment Emigdio Veronica MD [place] [facility] [place] [facility] Showing future appointments within next 150 days with a meds authorizing provider and meeting all other requirements Future appointment: Already Scheduled Ebony Toscano 01/05/2022 12:59 documented in this encounter Plan of Treatment Upcoming Encounters Date Type Department Care Team (Late st Contact Info) Description 01/04/2025 13:00 EST Office Visit [facility] Ophthalmology - [address] [phone] Gagandeep Rome MD [address] [place] [address], [facility] [address] [place] [phone] 02/11/2025 13:30 EDT Telemedicine [facility] Hematology & Oncology - [address] [phone] Dana Padilla MD [address] [place] [address] 2 [place] [phone] documented as of this encounter Visit Diagnoses Not on filedocumented in this encounter Discontinued Medications Medication Sig Discontinue Reason Start Date End Da te pantoprazole (PROTONIX) 40 mg tablet Take 1 Tablet by mouth 2 times daily. Reorder 10/17/2021 01/05/2022 documented as of this encounter Care Teams Foreign Clerk Relationship Specialty Start Date End Date Emigdio Veronica MD [address] [place] [phone] PCP - General Internal Medicine - Primary Care 05/22/20 02/21/24 Starr Paige MD [address] [facility] [place] [phone] Hematology 10/08/21 06/09/22 Dana Padilla MD [address] [place] [address] 2 [place] [phone] Hematology 01/13/22 06/09/22 documented as of this encounter
--- OUTSIDE RECORDS SUMMARY | 2024-11-22 17:08 | XMS_ITS | Encounter Summary ---
Author Organization [facility] Address [address] [place] [address] Care Team Providers Care Reel Fed Printer Name Role Phone Emigdio Veronica MD Primary Care Provider + Starr Paige MD Unavailable [phone] Reason for Visit * Reason Comments Telemedicine Phone Call Follow-up Encounter Details Date Type Department Care Team (Late st Contact Info) Description 12/07/2021 13:00 EST Telemedicine [facility] Hematology & Oncology - [address] [phone] Dana Padilla MD [address] [facility], Level 2 [place] [address] Portal vein thrombosis (Primary Dx); Thrombocytopenia (HCC-CMS) (HCC) Social History Tobacco Use [...] 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 If they are good we will switch you overto apixaban (also called Eliquis), 2.5 mg twice a day. -Once this time comes, stop lovenox one day and start the apixaban the next day at the same time. This is taken twice a day, with doses about 12 hours about. -Anytime we make a change in blood thinner there is a possibility it won't work or you could have bleeding, but I think this is a good change to make to get you off the shots. -Come for repeat blood counts in 3 months - this is good under your standing order. -We will send you a letter to document the plan for your oral surgery. -Please call if you think you are bleeding again, or have symptoms of blood clots, like abdominal pain or symptoms below: Signs and symptoms of DVT (Deep Vein Thrombosis - clot in a deep vein, sometimes called phlebitis) include one-sided leg or arm pain, swelling, or increased redness/heat to an area. Not all symptoms will be present every time. Please seek medical evaluation should any of these occur. Signs and symptoms of a pulmonary embolism (clot in the lungs) include shortness of breath, dry cough, coughing up blood, and/or chest pain. Not all symptoms will be present every time. These clots often come from the legs, but the legs can be free of symptoms. If you develop any of these symptoms,please seek emergency medical evaluation. documented in this encounter Progress Notes * Dana Padilla MD - 12/07/2021 1300 EST Thrombosis & Hemostasis Program (THP) Follow Up Visit Date of Service: 12/07/2021 Problem List: Patient Active Problem List Diagnosis ??? Peptic ulcer disease with hemorrhage EGD March 2021:esophagitis and pyloric channel ulcer. Oct 08, 2021: 9-day admission w/ 3 separate EGDs and several units RBC tx. Large posterior duodenalulcer and pyloric ulcer extending into duodenal bulb +mild portal gastropathy as likely sources. RxBID Protonix for 3 months then daily. ??? Portal vein thrombosis -04/23/21: Nonocclusive portal [...] to 60 mg/d with rising hemoglobin. ??? Other cirrhosis of liver (HCC) -NAFLD related cirrhosis with history of decompensation, chronic portal htn, hepatic encephalopathy, small esophageal varices on EGD in 2019, thrombocytopenia/hypersplenism, portal gastropathy -s/p partial splenic embolization (09/28/21) -portal vein thrombosis -Hep C Past provider: Dr. Ijeoma Smith, GI Department in [facility] for long-standing decompensated liver cirrhosis ??? Abdominal pain ??? Thrombocytopenia (HCC-CMS) (HCC) Took lusutrombopag 3 mg once daily for 7 days, starting 8 to 14 days prior to the scheduled procedure. Patients should undergo procedure 2 to 8 days after the last lusutrombopag dose. Patient did nothave major platelet increment: plt count increased up to 68K ??? Chronic respiratory failure with hypoxia (HCC-CMS) [...] Pancytopenia (HCC) -bone marrow biopsy at [facility] in 2012: maturing trilineage hematopoiesis with no underlying hematopoietic abnormalities ??? Mild persistent asthma without complication ??? Nephrolithiasis Added automatically from request for surgery [id number] CC: Telemedicine Phone Call and Follow-up TELEMEDICINE PHONE VISIT Assessment: Portal vein thrombosis as outlined above in this pt with history of GI bleeding as outlined above, both without and with associated thrombocytopenia. She has acquired anticoagulant factor deficiencies from liver disease and her procoagulant system is probably not impaired now (based on INR 1.2). Her thrombocytopenia is resolved now and she is on a PPI but has portal gastropathy so remains at riskof bleeding. She has been on prophylaxis lovenox since 10/27 with recent increase in dose, without evidence of bleeding and her imaging is c/w nonocclusive thrombus. She is getting some bruising with injections and would like to be on an oral anticoagulant if possible. Her liver disease is not Child's C so I think apixaban would be the best option, and because of her portal gastropathy and that the thrombous is nonocclusive, I would go with prophylaxis dosing to prevent thrombosis without causing bleeding. I told her that anytime we make a switch there is a chance that it will not work (she could have bleeding or thrombosis) and she understands. She has a history of falls. This is not necessarily a contraindication to anticoagulation - she hashad none recently. Plan: -Continue lovenox 60 mg/d (she has about 20 syringes left) -CBC this week. If H/H stable, we will switch to apixaban 2.5 mg BID - she can switch when she runsout of lovenox or earlier if she wants to. -I educated her on her anticoagulant factor deficiencies and the natural history of thrombosis. -no further imaging of her PVT needed unless clinical status changes. -She is getting dental extraction of 7 teeth [address] Kendall Munguia . At that time she canhold apixaban for 3 days before and restart the next day 24 hours later. If she develops oozing we can add amicar or TXA rinse; I told her to call. We will send a thrombosis action plan to she, her PCP, and Dr. Munguia with all of this information.. -return in 6 months with CBC and do this also in 3 months. HPI: Ms. Yun is contacted by telephone today due to winter storm and difficulty setting up zoom. She is on lovenox daily as outlined above and has had no further s/sx GI bleeding. She does complain of increasing fatigue. She has no SOB except on some days when she uses her O2. She is not taking any ASA or NSAID. Social History: Patient reports that she has been smoking cigarettes. She has a 8.75 pack-year smoking history. Shehas never used smokeless tobacco. She reports previous drug use. Drug: Marijuana. She reports that she does not drink alcohol. Social History Social History Narrative Rents a room from friends in [place] and lives there with her dog. She is disabled. 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 albuterol 90 mcg/actuation inhaler ??? amitriptyline (ELAVIL) 25 mg tablet ??? enoxaparin (LOVENOX) 60 mg/0.6 mL injection [...] (ALDACTONE) 50 mg tablet ??? sucralfate (CARAFATE) 100 mg/mL suspension ??? SYMBICORT 160-4.5 mcg/actuation HFA aerosol inhaler inhaler No current facility-administered medications for this visit. Facility-Administered Medications Ordered in Other Visits Medication Route Frequency ??? albuterol (ACCUNEB) 2.5 mg /3 mL (0.083 %) nebulizer solution Allergies: Patient is allergic to metoclopramide, morphine, sulfa (sulfonamide antibiotics), tylenol [acetaminophen], flagyl [metronidazole], aspirin, injectafer [ferric carboxymaltose], lyrica [pregabalin], prochlorperazine, and reglan [metoclopramide hcl]. Physical Exam: There were no vitals filed for this visit. Estimated body mass index is 34.83 kg/m?? as calculated from the following: Height as of 12/15/21: 160 cm (63). Weight as of 11/25/21: 89.2 kg (196 lb 9.6 oz). Wt Readings from Last 3 Encounters: 11/25/21 89.2 kg (196 lb 9.6 oz) 11/11/21 92.5 kg (204 lb) 11/04/21 93.9 kg (207 lb) BMI Readings from Last 3 Encounters: 11/25/21 34.83 kg/m?? 11/11/21 36.14 kg/m?? 11/04/21 36.67 kg/m?? Gen: Alert and oriented x3. No distress. Labs: Complete Blood Count Lab Results Component Value Date WBC 5.36 11/24/2021 WBC 5.88 11/10/2021 WBC 5.75 11/04/2021 RBC 3.96 11/24/2021 HGB 10.6 (L) 11/24/2021 HGB 9.2 (L) 11/10/2021 HGB 9.6 (L) 11/04/2021 HCT 33.8 (L) 11/24/2021 MCV 85 11/24/2021 PLT 185 11/24/2021 PLT 171 11/10/2021 PLT 144 11/04/2021 MPV 9.5 11/24/2021 RDWCV 15.7 (H) 11/24/2021 Lab Results Component Value Date DIFFTYPE Auto 11/10/2021 NEUTROABS 4.60 11/10/2021 ABSBAND 0.02 04/23/2019 LYMPHSABS 0.29 (L) 11/10/2021 MONOSABS 0.87 (H) 11/10/2021 EOSABS 0.08 11/10/2021 BASOSABS 0.02 08/29/2019 MYELOABS 0.02 10/21/2018 Anemia Workup (if applicable) Lab Results Component Value Date IRON 85 07/13/2019 TIBC 270 07/13/2019 FERRITIN 179 10/19/2021 FOLATE 8.1 10/19/2021 [id number] 497 10/19/2021 Chemistries Lab Results Component Value Date NA 132 (L) 11/04/2021 K 4.1 11/04/2021 CL 97 11/04/2021 CO2 30 11/04/2021 BUN 11 11/04/2021 CREATININE 0.87 11/04/2021 CALCGFR 72 11/04/2021 CALCIUM 8.6 11/04/2021 CALCCA 9.2 07/28/2021 MG 1.9 10/12/2021 LDH 320 06/28/2019 ALKPHOS 111 11/04/2021 AST 27 11/04/2021 ALT 11 11/04/2021 GGT 47 (H) 11/09/2018 CONJBILI 0.0 07/14/2021 UNCONJBILI 0.5 07/14/2021 BILIRUBIN Neg 09/20/2017 TBIL 0.7 11/04/2021 TP 6.6 11/04/2021 LABALBU 3.1 (L) 11/04/2021 AGRATIO 0.9 (L) 11/04/2021 LIPASE 39 11/03/2021 Cardiovascular No results found for: SCRP No results found for: CHOL, LDLBASE, CHOLHDL, HDL, HDLC, LPA, LIPOA, TRIG Lab Results Component Value Date TROPONINI <0.034 07/30/2021 Thrombosis Panel Lab Results Component Value Date ABO O 11/03/2021 PROTIME 13.8 (H) 11/04/2021 INR 1.2 (H) 11/04/2021 INR 1.3 (H) 11/03/2021 PTT 31 11/03/2021 DDIMER 5,761 (H) 10/27/2021 DDIMER 1,084 (H) 04/13/2021 FACTVIIIFA8 188 (H) 10/27/2021 ANTITHROM 69 (L) 10/27/2021 PROTCCLOT 59 (L) 10/27/2021 PROTSCLOT 96 10/27/2021 DRVVT 38.5 10/27/2021 SCT 39.6 10/27/2021 Imaging: US LOWER VENOUS DUPLEX Interpretation Summary ??? No evidence of deep or superficial venous thrombosis in the right lower extremity. ??? No evidence of deep or superficial venous thrombosis in the left lower extremity. CT HEAD WO CONTRAST Narrative EXAM: CT HEAD WO CONTRAST HISTORY: Head trauma, mod-severe TECHNIQUE: CT head without contrast. Structured report code: NR.CT01 COMPARISON: Multiple CT head exams, most recently 06/29/2021. FINDINGS: PARENCHYMA: No evidence of infarction. No parenchymal hemorrhage. No mass or midline shift. There is mild parenchymal volume loss. There are scattered hypodensities in the supratentorial periventricular and subcortical white matter which are nonspecific but likely represent chronic microangiopathic changes. EXTRA-AXIAL SPACES: No extra-axial collection. No extra-axial mass. VENTRICULAR SYSTEM: Normal size and configuration. No obstructive hydrocephalus. VESSELS: Limited evaluation without IV contrast. Normal density in the dural venous sinuses. BONES: No concerning lesions. No evidence of fracture. Dental caries noted. ORBITS: No significant abnormality. PARANASAL SINUSES/MASTOID AIR CELLS: Predominantly clear. EXTRACRANIAL SOFT TISSUES: Unremarkable. Impression No evidence of recent intracranial hemorrhage, acute infarction, or mass. TRANSTHORACIC ECHO (TTE) COMPLETE Interpretation Summary ??? Left??Ventricle: Left ventricular systolic function was normal with an ejection fraction of 60-65%. There was mild concentric hypertrophy of the left ventricle. Left ventricular wall motion was normal; there were no regional wall motion abnormalities. ??? Right??Ventricle: The right ventricular cavity was upper limits of normal in size. Right ventricular systolic function was normal. ??? Left??Atrium: Left atrial cavity was moderately dilated. I spent 50 minutes related to this patient's care today, which includes time with the patient, timereviewing medical records and reviewing imaging reports and laboratory results, time updating the chart information, and time composing this note. Please contact my office with questions/concerns. Dana Padilla MD, MSc market research consultant Director, Thrombosis and Hemostasis Program Today's visit was provided through telemedicine phone conferencing: The location of the patient : Home The location of the provider: Office The following staff and their role did participate in today's encounter visit: Dana Padilla MD I am conducting today's visit by telemedicine due to the COVID-19 pandemic, and by the recommendations from the [facility] to minimize patient exposure to our medical center. All patients who have routine follow up visits or are not on active cancer treatments will have visits by telemedicine or phone. This consultation has been reviewed by appropriate clinical staff and has been deemed appropriate. The concept of ???Telemedicine?? was described to the patient. Patient was informed of the anticipated benefits and possible risks. Patient understands the information provided regarding telemedicine, has had the opportunity to ask questions about this information, and all questions have been answered to patient???s satisfaction. Patient consents for use of telemedicine in his/her medical care and authorizes the transmission of any relevant medical information to providers and their staff involved in patient???s medical or mental health care. CC: Emigdio Veronica documented in this encounter Plan of Treatment Upcoming Encounters Date Type Department Care Team (Late st Contact Info) Description 01/04/2025 13:00 EST Office Visit [facility] Ophthalmology - [address] [phone] Gagandeep Rome MD [address] [place] [address] [address] [place] [phone] 02/11/2025 13:30 EDT Telemedicine [facility] Hematology & Oncology [address] [phone] Dana Padilla MD [address] [place] [address] [address] [place] [phone] documented as of this encounter Visit Diagnoses Diagnosis Portal vein thrombosis- Primary Thrombocytopenia (HCC-CMS) Thrombocytopenia, unspecified documented in this encounter Care Teams Reel Fed Printer Relationship Specialty Start Date End Date Emigdio Veronica MD [address] [place] [phone] PCP - General Internal Medicine - Primary Care 05/22/20 02/21/24 Starr Paige MD [address] [place] [phone] Hematology 10/08/21 06/09/22 documented as of this encounter
--- OUTSIDE RECORDS SUMMARY | 2024-11-22 17:08 | XMS_ITS | Encounter Summary ---
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 Daily Max: 15 mg 84 Tablet 12/21/2021 12/21/2021 documented in this encounter Miscellaneous Notes * Telephone Encounter - Emigdio Veronica MD - 12/21/2021 0946 EST By my count she will be due for her oxycodone refill this Tuesday12/23/21. I have signed the prescription for this start date. We will follow-up as scheduled on 01/06. We can potentially arrange for consecutive 28 day prescriptions following that visit. For now will prescribe one 28 day supply. * Telephone Encounter - Georgie Gonzalez RN - 12/21/2021 0819 EST Patient reports she has blood clots between her liver and spleen and is one blood thinner for this and sees hematology. Was seen in ED on 12/14, f/u visit scheduled for 01/06. Started new blood thinner2 days ago (eliquis), Feels like pain is being managed by pain medication. Pain radiates to back which is felt a bit worse last night/this AM but then she took oxycodone and feels better now. She does have low back pain normally, but feels like this was more than the normal back pain. No SOB this AM, no chest pain. Pain is in the liver area which is where it has been per patient. Denies bleeding, dark stools. Has been taking 2 oxycodone/day and this is managing well. She would really prefer not to go back to ER. Discussed concern that she feels a bit worse today, but patient does feel medication is managing pain. Discussed plan If any worsening, chest pain, SOB, urged pt that she should go to ED. Plan to send to covering provider and call patient back with any other recommendations Medication(s) Requested: oxycodone Preferred [facility]acy: [facility] Is patient out of medication? Unknown Last Refill Date: 11/25/21 Last Visit Date with Ordering Provider: 11/25/21 Next Non-Acute Visit Date Scheduled with Care Team: Yes. GEORGIE GONZALEZ RN 12/21/2021 8:32 * Telephone Encounter - Ebony Toscano - 12/21/2021 0814 EST Requested Prescriptions Pending Prescriptions Disp Refills ??? oxyCODONE (ROXICODONE) 5 mg immediate release tablet 84 Tablet 0 Sig: Take 1 Tablet by mouth every 6 hours as needed for Pain. Daily Max: [address] [facility]/pharmacy #[id number] - [place], [place] - [address] Confirmed Pharmacy? Yes Patient out of medication? Yes: Needs Refill Now - pt says she is having a lot of pain up where the blood clots are. Says she really does not want to go to the hospital. Says she has taken all of her pain medications, says she is due for her refill tomorrow, is hoping for an early fill today. Last Refill Date: 11.25.21 Refills left? (explain exceptions requiring early refill) No Recent Visits Date Type Provider Dept 11/25/21 Office Visit Emigdio Veronica MD [facility] 11/11/21 Office Visit Scottie Campuzano PA-C [facility] 10/20/21 Office Visit Emigdio Veronica MD [facility] 10/08/21 Office Visit Emigdio Veronica MD [facility] 09/18/21 Office Visit Scottie Campuzano PA-C [facility] 07/22/21 Office Visit Scottie Campuzano PA-C [facility] 05/14/21 Office Visit Emigdio Veronica MD [facility] 04/29/21 Office Visit Emigdio Veronica MD [facility] 04/16/21 Office Visit Emigdio Veronica MD [facility] 04/10/21 Office Visit Emigdio Veronica MD [facility] Showing recent visits within past 540 days with a meds authorizing provider and meeting all other requirements Future Appointments Date Type Provider Dept 01/06/22 Appointment Emigdio Veronica MD [facility] Showing future appointments within next 150 days with a meds authorizing provider and meeting all other requirements Future appointment: Already Scheduled Ebony Toscano 12/21/2021 8:14 documented in this encounter Plan of Treatment Upcoming Encounters Date Type Department Care Team (Late st Contact Info) Description 01/04/2025 13:00 EST Office Visit [facility] Ophthalmology [address] [phone] Gagandeep Rome MD [address] [place] [address] [address] [place] [phone] 02/11/2025 13:30 EDT Telemedicine [facility] Hematology & Oncology [address] [phone] Dana Padilla MD [address] [place] [address], [facility] [address] [place] [phone] documented as of this encounter Visit Diagnoses Not on filedocumented in this encounter Discontinued Medications Medication Sig Discontinue Reason Start Date End Da te oxyCODONE (ROXICODONE) 5 mg immediate release tablet Take 1 Tablet by mouth every 6 hours as needed for Pain. Daily Max: 15 mg Reorder 11/25/2021 12/21/2021 oxyCODONE (ROXICODONE) 5 mg immediate release tablet Take 1 Tablet by mouth 3 times daily as needed for Pain. Daily Max: 15 mg 12/21/2021 12/21/2021 documented as of this encounter Care Teams Machine Engineer Relationship Specialty Start Date End Date Emigdio Veronica MD [address] [place] [phone] PCP - General Internal Medicine - Primary Care 05/22/20 02/21/24 Starr Paige MD [address] [place], [place] [phone] Hematology 10/08/21 06/09/22 documented as of this encounter
--- OUTSIDE RECORDS SUMMARY | 2024-11-22 17:08 | XMS_ITS | Encounter Summary ---
Author Organization [facility] Address [address] [place] [address] Care Team Providers Care Garnetter Name Role Phone Emigdio Veronica MD Primary Care Provider + Starr Paige MD Unavailable [phone] Dana Padilla MD Unavailable Izabella Snowden [facility] Unavailable None, Provider Primary Care Provider UnavailGabriel Dacosta Primary Care Provider Mirna Guerrero Primary Care Provider + Reason for Visit * Reason Comments Other Encounter Details Date Type Department Care Team (Late st Contact Info) Description 01/05/2022 [facility] Adult Primary Care - [place] [address] [place] [address] Emigdio Veronica MD [address] [place] [address] Other Social History Tobacco Use [...] 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 spironolactone (ALDACTONE) 50 mg tablet [Pharmacy Med Name: SPIRONOLACTONE 50 MG TABLET] 90 Tablet 1 Sig: TAKE 1 TABLET BY MOUTH EVERY DAY [facility]/pharmacy #[id number] - [address] Confirmed Pharmacy? Yes Patient out of medication? Unknown Last Refill Date: 09/09/21 Refills left? (explain exceptions requiring early refill) No Recent Visits Date Type Provider Dept 11/25/21 Office Visit Emigdio Veronica MD [facility] 11/11/21 Office Visit Scottie Campuzano PA-C [facility] 10/20/21 Office Visit Emigdio Veronica MD [facility] 10/08/21 Office Visit Emigdio Veronica MD [facility] 09/18/21 Office Visit Scottie Campuzano PA-C [facility] 07/22/21 Office Visit Scottie Campuzano PA-C [facility] 05/14/21 Office Visit Emigdio Veronica MD [facility] 04/29/21 Office Visit Emigdio Veronica MD [facility] 04/16/21 Office Visit Emigdio Veronica MD [facility] 04/10/21 Office Visit Emigdio Veronica MD [facility] Showing recent visits within past 540 days with a meds authorizing provider and meeting all other requirements Future Appointments Date Type Provider Dept 02/05/22 Appointment Emigdio Veronica MD [facility] Showing future appointments within next 150 days with a meds authorizing provider and meeting all other requirements Future appointment: Other - STEVEN BEAN RN 01/06/2022 7:57 documented in this encounter Plan of Treatment Upcoming Encounters Date Type Department Care Team (Late st Contact Info) Description 01/04/2025 13:00 EST Office Visit [facility] Ophthalmology - [address] [phone] Gagandeep Rome MD [address] [place] [address], [facility] 5 [place] [phone] 02/11/2025 13:[address] [facility] Hematology & Oncology [address] [phone] Dana Padilla MD [address] [place] [address] 2 [place] [phone] documented as of this encounter Visit Diagnoses Not on filedocumented in this encounter Discontinued Medications Medication Sig Discontinue Reason Start Date End Da te spironolactone (ALDACTONE) 50 mg tablet TAKE 1 TABLET BY MOUTH EVERY DAY 09/09/2021 01/06/2022 documented as of this encounter Additional [...] documented as of this encounter Care Teams Garnetter Relationship Specialty Start Date End Date Emigdio Veronica MD [address] [place] [phone] PCP - General Internal Medicine - Primary Care 05/22/20 02/21/24 None, Provider PCP - General 02/24/24 03/18/24 Gabriel Gandara PA PCP - General 03/19/24 09/11/24 Mirna Guerrero PA [address] [place] [address] PCP - General 09/12/24 Starr Paige MD [facility] [address] [place] [phone] Hematology 10/08/21 06/09/22 Dana Padilla MD [address] [place] [address] [facility], Level 2 [place] [phone] Hematology 01/13/22 06/09/22 Izabella Snowden, OCULAR CARE TECHNOLOGIST 1 [facility], 3rd [place] [phone] [employer] 02/21/23 05/03/24 documented as of this encounter
--- OUTSIDE RECORDS SUMMARY | 2024-11-22 17:08 | XMS_ITS | Encounter Summary ---
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 180 Tablet 1 12/10/2021 2 documented in this encounter Miscellaneous Notes * Telephone Encounter - Maritza Lakhani RN - 12/10/2021 1312 EST Pt in agreement with plan Pt would like the trazodone 150 mg tables with orders to take up to two at bedtime * Telephone Encounter - Emigdio Veronica MD - 12/09/2021 1641 EST We definitely can go back to trazodone. The maximum usual dose of trazodone is 300 mg. Which we can definitely try if she is willing. For some reason her insurance doesn't cover 300 mg tablets. I will prescribe 150 mg tablets with instructions to take two at bedtime. * Telephone Encounter - Jes Mayorga RN - 12/09/2021 1613 EST Patient aware of recommendations. Patient agrees with stopping of the amitrytillline. Patient asking about going back on trazodone. Patient states the trazodone worked and sometimes needed to increase dosage when it didn't work as well. Last dose of trazodone patient remembers taking was 150 mg. Chart indicates patient took up to 250 mg of trazodone. If not appropriate for trazodone, patient would be willing to go back to hydroxyzine but patient didn't think that worked very well. * Telephone Encounter - Karol Hoff RN - 12/09/2021 1553 EST LMTCB * Telephone Encounter - Emigdio Veronica MD - 12/09/2021 1357 EST We are limited on options given the patients intolerance to other sleep aids and the risks of polypharmacy. With that being said I would recommend stopping amitriptyline if she is having worsening sleep withthe medication. We could return to hydroxyzine / atarax for a sleep ad if she is interested. * Telephone Encounter - Cris Copeland - 12/09/2021 1250 EST Pt states that Amitriptyline is not working for her, states is almost having the opposite effect. Wondering if there is an alternative to try? documented in this encounter Plan of Treatment Upcoming Encounters Date Type Department Care Team (Late st Contact Info) Description 01/04/2025 13:00 EST Office Visit [facility] Ophthalmology - [address] [phone] Gagandeep Rome MD [address] [place] [address], [facility] 5 [place] [phone] 02/11/2025 13:30 EDT Telemedicine [facility] Hematology & Oncology - [address] [phone] Dana Padilla MD [address] [place] [address], [facility] 2 [place] [phone] documented as of this encounter Visit Diagnoses Not on filedocumented in this encounter Care Teams Sieve Maker Relationship Specialty Start Date End Date Emigdio Veronica MD 2 [place] [address] PCP - General Internal Medicine - Primary Care 05/22/20 02/21/24 Starr Paige MD [address] [place] [phone] Hematology 10/08/21 06/09/22 documented as of this encounter
--- OUTSIDE RECORDS SUMMARY | 2024-11-22 17:08 | XMS_ITS | Encounter Summary ---
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 Order Details Dose: 1 g Route: oral Frequency: 4 TIMES DAILY BEFORE MEALS & AT BEDTIME Dispense Quantity: 420 mL Refills: 2 ?? Sig: Take 10 mL by mouth 4 times daily (before meals and at bedtime). ?? Start Date: 12/09/21 End Date: -- Written Date: 12/09/21 documented in this encounter Plan of Treatment Upcoming Encounters Date Type Department Care Team (Late st Contact Info) Description 01/04/2025 13:00 EST Office Visit [facility] Ophthalmology - [address] [phone] Gagandeep Rome MD [address] [place] [address] 5 [place] [phone] 02/11/2025 13:[address] [facility] Hematology & Oncology [address] [phone] Dana Padilla MD [address] [place] [address], [facility] 2 [place] [phone] documented as of this encounter Visit Diagnoses Not on filedocumented in this encounter Care Teams Health Inspector Relationship Specialty Start Date End Date Emigdio Veronica MD 2 [place] [phone] PCP - General Internal Medicine - Primary Care 05/22/20 02/21/24 Starr Paige MD [address] [place] [phone] Hematology 10/08/21 06/09/22 documented as of this encounter
--- OUTSIDE RECORDS SUMMARY | 2024-11-22 17:08 | XMS_ITS | Encounter Summary ---
Author Organization [facility] Address [address] [place] [address] Care Team Providers Care Screen Vent Binder Name Role Phone Emigdio Veronica MD Primary Care Provider + Starr Paige MD Unavailable Reason for Visit * Reason Comments Other Encounter Details Date Type Department Care Team (Late st Contact Info) Description 12/18/[address] 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 21 Tablet 12/21/2021 documented in this encounter Miscellaneous Notes * Telephone Encounter - Cris Stoll RN - 12/21/2021 4604 EST ondansetron (ZOFRAN-ODT) 4 mg disintegrating tablet [[id number]] ?? Order Details Dose: 4 mg Route: oral Frequency: EVERY 4 TO 6 HOURS PRN for Nausea Dispense Quantity: 21 Tablet Refills: 0 ?? Sig: Take 1 Tablet by mouth every 4 to 6 hours as needed for Nausea. ?? Start Date: 11/25/21 End Date: -- Written Date: 11/25/21 Next visit- 01/06/22 Last visit- 11/25/21 documented in this encounter Plan of Treatment Upcoming Encounters Date Type Department Care Team (Late st Contact Info) Description 01/04/2025 13:00 EST Office Visit [facility] Ophthalmology - [address] [phone] Gagandeep Rome MD [address] [place] [address] 5 [place] [phone] 02/11/2025 13:30 EDT Telemedicine [facility] Hematology & Oncology - [address] [phone] Dana Padilla MD [address] [place] [address], [facility] 2 [place] [address] documented as of this encounter Visit Diagnoses Not on filedocumented in this encounter Discontinued Medications Medication Sig Discontinue Reason Start Date End Da te ondansetron (ZOFRAN-ODT) 4 mg disintegrating tablet Take 1 Tablet by mouth every 4 to 6 hours as needed for Nausea. 11/25/2021 12/21/2021 documented as of this encounter Additional Health Concerns Infection Onset Date Last Indicated Resolved Time R/O COVID-19 12/14/2021 12/14/2021 12/19/2021 22:1 5 EST documented as of this encounter Care Teams Screen Vent Binder Relationship Specialty Start Date End Date Emigdio Veronica MD 2 [place] [phone] PCP - General Internal Medicine - Primary Care 05/22/20 02/21/24 Starr Paige MD [address] [place] [phone] Hematology 10/08/21 06/09/22 documented as of this encounter
--- OUTSIDE RECORDS SUMMARY | 2024-11-22 17:08 | XMS_ITS | Encounter Summary ---
Author Organization [facility] Address [address] [place] [address] Care Team Providers Care Tennis Professional Name Role Phone Emigdio Fernandez MD Primary Care Provider + Starr Paige MD Unavailable [phone] Reason for Visit * Reason Onset Date Comments Emesis 12/14/2021 Diarrhea 12/14/2021 Fatigue 12/14/2021 Extremity Weakness 12/14/2021 Rectal Bleeding 12/14/2021 Encounter Details Date Type Department Care Team (Late st Contact Info) Description 12/14/2021 Telephone [facility] Adult Primary Care - [place] [address] [place] [address] Emigdio Fernandez MD 2 [place] [address] Emesis; Diarrhea; Fatigue; Extremity Weakness; Rectal Bleeding Social History Tobacco Use Types Packs/Day Years [...] 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 Cannot sleep Last night started feeling nauseas. Vomited with some blood in it Was some blood in diarrhea she had. That was last night as well. Tarry stool. No blood with wiping. No strength Few times she vomited last night. Started last night. Vomited 3 times and there was some blood in each time. Was not a lot of blood. Streaks of blood. Concerned d/t Hx of GI bleed No fevers There is some abdominal pain where the has a clot; only when vomiting. Is on pain medication for this and on blood thinners. Taking oxycodone for pain and lovenox for blood thinner. States in a few days should be changed to pill form Still nausea today. Sipping on gingerale. Has not been able to eat today. Ate a little last night-toast and a scrambled egg. Stomach upset started in afternoon yesterday. Sees dr spencer with hematology Sees dr beebe for GI Has been short of breath. Started a couple days ago. Has had to use 02. Uses 02 normally at night only. Has had to use it during daytime. Yesterday used 2 L for 2-3 hrs. Does not have 02 sat at home.[employer] like she needed it for that time Is short of breath again today No chest pain, no dry cough. States people she lives with will be back this PM. Wants to wait for them to be home for them to give her a ride. Discussed RN recommends calling ambulance for transport sooner States she will wait an hr and give them until 1pm. Then if they are not home will call ambulance The patient indicates understanding of these issues and agrees with the plan. FYI to dr fernandez Call to junior Report given to [facility] ER triage HEIKE ROSADO RN 12/14/2021 12:01 * Telephone Encounter - Cris Copeland - 12/14/2021 1057 EST Reason for Call: Emesis, Diarrhea, Fatigue, and Extremity Weakness Summary/Symptoms: Pt reports vomiting, diarrhea with blood. Fatigue and weakness. Pt was in hospital for GI bleed few months ago. Onset and Duration: recent Does the patient have a computer, laptop or smart phone with high speed & video capability? N/A If so, would they be interested in doing a video visit via Zoom? N/A Appointment Offered? No Cris Copeland 12/14/2021 10:58 documented in this encounter Plan of Treatment Upcoming Encounters Date Type Department Care Team (Late st Contact Info) Description 01/04/2025 13:00 EST Office Visit [facility] Ophthalmology - [address] [phone] Gagadneep Rome MD [address] [place] [address], [facility] 5 [place] [phone] 02/11/2025 13:30 EDT Telemedicine [facility] Hematology & Oncology [address] [address] Dana Spencer MD [address] [place] [address], Level [address] [place] [phone] documented as of this encounter Visit Diagnoses Not on filedocumented in this encounter Additional Health Concerns Infection Onset Date Last Indicated Resolved Time R/O COVID-19 12/14/2021 12/14/2021 12/19/2021 22:1 5 EST documented as of this encounter Care Teams Tennis Professional Relationship Specialty Start Date End Date Emigdio Fernandez MD 2 [place] [phone] PCP - General Internal Medicine - Primary Care 05/22/20 02/21/24 Starr Paige MD [address] [place], [place] [phone] Hematology 10/08/21 06/09/22 documented as of this encounter
--- OUTSIDE RECORDS SUMMARY | 2024-11-22 17:08 | XMS_ITS | Encounter Summary ---
Author Organization [facility] Address [address] [place] [address] Care Team Providers Care Advertising Agent Name Role Phone Emigdio Veronica MD Primary Care Provider + Starr Paige MD Unavailable [phone] Reason for Visit * Reason Onset Date Comments Medication Management 01/08/2022 Labs Only 01/11/2022 Encounter Details Date Type Department Care Team (Late st Contact Info) Description 01/08/2022 Telephone [facility] Hematology & Oncology - [address] [phone] Dana Padilla MD 111 [facility], [facility] 2 [place] [address] Medication Management; Labs Only Social History Tobacco Use Types [...] 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 Sent My Chart re: Labs and follow up * Telephone Encounter - Chaparrita Salazar - 01/11/2022 1313 EST Patient states that she labs this morning. They are all quite a bit lower. Please call . * Telephone Encounter - Blaire Kamara - 01/08/2022 1632 EST Patient calling again to discuss stopping her blood thinners prior to her 01/13 procedure. Please call back to discuss * Telephone Encounter - Dragan Roth - 01/08/2022 1419 EST Patient is calling to discuss when to stop her blood thinners prior to procedure 01/13/22 documented in this encounter Plan of Treatment Upcoming Encounters Date Type Department Care Team (Late st Contact Info) Description 01/04/2025 13:00 EST Office Visit [facility] Ophthalmology - [address] [phone] Gagandeep Rome MD 111 [facility], Level 5 [place] [phone] 02/11/2025 13:30 EDT Telemedicine [facility] Hematology & Oncology - [address] [phone] Dana Padilla MD 111 [facility], Level 2 [place] [phone] documented as of this encounter Visit Diagnoses Not on filedocumented in this encounter Care Teams Advertising Agent Relationship Specialty Start Date End Date Emigdio Veronica MD [address] [place] [phone] PCP - General Internal Medicine - Primary Care 05/22/20 02/21/24 Starr Paige MD [facility] [address] [place] [phone] Hematology 10/08/21 06/09/22 documented as of this encounter
--- OUTSIDE RECORDS SUMMARY | 2024-11-22 17:08 | XMS_ITS | Encounter Summary ---
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 [...] Visit [facility] Ophthalmology - [address] [phone] Gagandeep Rome MD [address] [place] [address], [facility] 5 [place] [phone] 02/11/2025 13:30 EDT Telemedicine [facility] Hematology & Oncology - [address] [phone] Dana Padilla MD [address] [place] [address] 2 [place] [phone] documented as of this encounter Procedures Procedure Name Priority Date/Time Associated Diagnosis Comments ZZCOVID-19 TEST [facility] PCR Today 01/10/2022 10:41 EST Encounter for preprocedure screening laboratory testing for COVID-19 COVID-19 TESTING Routine 01/10/2022 10:4 1 EST Encounter for preprocedure screening laboratory testing for COVID-19 documented in this encounter Results * COVID-19 TEST [facility] PCR (01/10/2022 10:41 EST) Swab BOTH ANTERIOR NARES / Unknown Swab / Unknown 01/10/2022 10:41 EST 01/10/2022 10:41 EST us Micheal Moseley MD PhD MICROBIOLOGY - GENERAL ORDERABLES Final Result [facility] [address] [place] [id number] * COVID-19 TESTING (01/10/2022 10:41 EST) COVID-19 rt-PCR Result Negative Negative 01/11/2022 12:05 [facility] Comment: This test has [...] clinical observations, patient history, and epidemiological information. Testing was performed using the dom SARS-CoV-2 assay ([employer] on the Dom 6800 System Performing Lab Dom 6800 [facility] 01/11/2022 12:05 [facility] Swab BOTH ANTERIOR NARES / Unknown Swab / Unknown 01/10/2022 10:41 EST 01/10/2022 10:41 EST Micheal Moseley MD PhD MICROBIOLOGY - GENERAL ORDERABLES Final Result [facility] [address] [place] [address] documented in this encounter Visit Diagnoses Diagnosis Encounter for preprocedure screening laboratory testing for COVID-19 documented in this encounter Care Teams Computer Equipment Installer Relationship Specialty Start Date End Date Emigdio Veronica MD [address] [place] [phone] PCP - General Internal Medicine - Primary Care 05/22/20 02/21/24 Starr Paige MD [address] [facility] [place] [address] Hematology 10/08/21 06/09/22 documented as of this encounter
--- OUTSIDE RECORDS SUMMARY | 2024-11-22 17:08 | XMS_ITS | Encounter Summary ---
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 Not on file [...] Visit [facility] Ophthalmology - [address] [phone] Gagandeep Rome MD [address] [place] [address], [facility] 5 [place] [phone] 02/11/2025 13:30 EDT Telemedicine [facility] Hematology & Oncology [address] [phone] Dana Padilla MD [address] [place] [address] 2 [place] [phone] documented as of this encounter Visit Diagnoses Not on filedocumented in this encounter Care Teams Tumble Tailstock Turret Lathe Operator Relationship Specialty Start Date End Date Emigdio Veronica MD 2 [place] [phone] PCP - General Internal Medicine - Primary Care 05/22/20 02/21/24 Starr Paige MD [facility] [address] [place] [phone] Hematology 10/08/21 06/09/22 documented as of this encounter
--- OUTSIDE RECORDS SUMMARY | 2024-11-22 17:08 | XMS_ITS | Encounter Summary ---
Author Organization [facility] Address [address] [place] [address] Care Team Providers Care Supervisor Pigment Making Name Role Phone Emigdio Veronica MD Primary Care Provider + Starr Paige MD Unavailable [phone] Reason for Visit * Reason Onset Date Comments Medications Refill 12/09/2021 Medications Refill 12/10/2021 Encounter Details Date Type Department Care Team (Late st Contact Info) Description 12/09/2021 Refill [facility] Adult Primary Care - [place] [address] [place] [address] Emigdio Veronica MD 2 [place] [address] Medications Refill; Medications Refill Social [...] 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 120 Tablet 3 12/10/2021 05/10/2022 sucralfate (CARAFATE) 100 mg/mL suspension Take 10 mL by mouth 4 times daily (before meals and at bedtime). 420 mL 2 12/09/2021 01/11/2022 documented in this encounter Miscellaneous Notes * Addendum Note - Esequiel Menon RN - 12/10/2021 1311 ESTAddended by: ESEQUIEL MENON on: 12/10/2021 13:11 Modules accepted: Orders * Telephone Encounter - Esequiel Menon RN - 12/10/2021 1310 EST Pt would rather take the tablets - called pt to clarify * Telephone Encounter - Xuan Jimenez - 12/10/2021 1253 EST Patient called requesting the Carafate 100mg tablets instead of the suspension. Her insurance doesn't cover the suspension but does cover the tablets, and a lot easier to take. Please cancel the suspension and send new prescription for tablets to [facility] [place]. * Telephone Encounter - Cris Copeland - 12/09/2021 1248 EST Requested Prescriptions Pending Prescriptions Disp Refills ??? sucralfate (CARAFATE) 100 mg/mL suspension 420 mL 2 Sig: Take 10 mL by mouth 4 times daily (before meals and at bedtime). [facility]/pharmacy #[id number] - [place], [place] - [address] Confirmed Pharmacy? Yes Patient out of medication? Yes: Needs Refill Now Last Refill Date: 10.17.21 Refills left? (explain exceptions requiring early refill) No Recent Visits Date Type Provider Dept 11/25/21 Office Visit Emigdio Veroinca MD [facility] 11/11/21 Office Visit Scottie Campuzano PA-C [facility] 10/20/21 Office Visit Emigdio Veronica MD [facility] 10/08/21 Office Visit Emigdio Veronica MD [facility] 09/18/21 Office Visit Scottie Campuzano PA-C [facility] 07/22/21 Office Visit Scottie Campuzano PA-C [facility] 05/14/21 Office Visit Emigdio Veronica MD [facility] 04/29/21 Office Visit Emigdio Veronica MD [facility] 04/16/21 Office Visit Emigdio Veronica MD [facility] 04/10/21 Office Visit Emigdio Veronica MD [facility] Showing recent visits within past 540 days with a meds authorizing provider and meeting all other requirements Future Appointments Date Type Provider Dept 01/06/22 Appointment Emigdio Veronica MD [facility] Showing future appointments within next 150 days with a meds authorizing provider and meeting all other requirements Future appointment: Already Scheduled Cris Copeland 12/09/2021 12:48 documented in this encounter Plan of Treatment Upcoming Encounters Date Type Department Care Team (Late st Contact Info) Description 01/04/2025 13:00 EST Office Visit [facility] Ophthalmology [address] [address] Gagandeep Rome MD [address] [place] [address], Level [address] [place] [phone] 02/11/2025 13:30 EDT Telemedicine [facility] Hematology & Oncology [address] [place] [address] Dana Padilla MD 111 [facility], [facility], [address] [place] [phone] documented as of this encounter Visit Diagnoses Not on filedocumented in this encounter Discontinued Medications Medication Sig Discontinue Reason Start Date End Da te sucralfate (CARAFATE) 100 mg/mL suspension Take 10 mL by mouth 4 times daily (before meals and at bedtime). Reorder 10/17/2021 12/09/2021 documented as of this encounter Care Teams Supervisor Pigment Making Relationship Specialty Start Date End Date Emigdio Veronica MD [address] [place] [phone] PCP - General Internal Medicine - Primary Care 05/22/20 02/21/24 Starr Paige MD [address] [place] [phone] Hematology 10/08/21 06/09/22 documented as of this encounter
--- OUTSIDE RECORDS SUMMARY | 2024-11-22 17:08 | XMS_ITS | Encounter Summary ---
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 She wanted to state that she was sorry, she was unware of any appt with dr reis documented in this encounter Plan of Treatment Upcoming Encounters Date Type Department Care Team (Late st Contact Info) Description 01/04/2025 13:00 EST Office Visit [facility] Ophthalmology - [address] [phone] Gagandeep Rome MD [address] [place] [address] 5 [place] [phone] 02/11/2025 13:30 EDT Telemedicine [facility] Hematology & Oncology - [address] [phone] Dana Padilla MD [address] [place] [address], Level [address] [place] [phone] documented as of this encounter Visit Diagnoses Not on filedocumented in this encounter Care Teams Package Maker Relationship Specialty Start Date End Date Emigdio Veronica MD [address] [place] [phone] PCP - General Internal Medicine - Primary Care 05/22/20 02/21/24 Starr Paige MD [address] [place] [phone] Hematology 10/08/21 06/09/22 documented as of this encounter
--- OUTSIDE RECORDS SUMMARY | 2024-11-22 17:08 | XMS_ITS | Encounter Summary ---
Author Organization 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 10.2 Each 1 11/09/2021 2 traZODone (DESYREL) 150 mg tablet Take 2 Tablets by mouth at bedtime. 180 Tablet 1 12/10/2021 2 documented as of this encounter Discharge Disposition Disposition Code Departure Means Destination Home or Self Care documented in this encounter Progress Notes * Vernon Chris, RN - 01/11/2022 1230 EST COVID 19 Screening Perioperative at time of PAT Please document by exception (only check those that apply). Have you had any of the following symptoms recently? No Yes Chronic ? Cough Shortness of breath or difficulty breathing Fever Chills Fatigue Muscle or body aches Severe Headache New loss of taste or smell Sore throat Congestion or runny nose Rash Nausea, vomiting, or diarrhea (rare in adults. More common in children) Please elaborate if yes: If a chronic symptom is reported use your judgement if an anesthesia review is needed. Have you been in close contact with someone who has been diagnosed with Covid 19 (within past 2 weeks)? No If yes, and is a member of your household, what was the date of their onset of symptoms/positive test? If above date is within 15 days of dos, place for anesthesia review. Have you tested positive in the last 90 days for COVID by PCR and or home test? No Vaccination Status: _x__ Pt states fully vaccinated, __x_ Verified in chart ___ Pt states unvaccinated -Do not instruct patient regarding COVID testing, let [facility] coordinate this -Communicate status on yellow form for DOS REMIND PATIENT/parents of pediatric patients: Patients with a pending COVID-19 test are expected toremain masked and socially distanced at all times while at work or school, and refrain from going inside restaurants, bars, or other public areas where people are likely to be unmasked, or crowded public places. If patient develops any of these symptoms between now and their surgery date instruct them to call us back at [phone] to report symptoms Visitor Policy: Surgical & Procedural -Adult: 1 designated support person -Pediatrics: 2 designated support people - Inpatients are now permitted 2 designated support people per stay, only 1 may visit per day. One person is permitted to remain overnight (must be masked). - Pediatric Inpatients may have 2 designated support people per stay, both may be present at the same time. - Inpatient Psychiatry patients may have 2 designated (vaccinated) support people per stay, only 1 may visit per day - One healthy support person may accompany patients to outpatient appointments. Two healthy parents/guardians are permitted for pediatric patients. As a reminder, all support people are will be required to wear a mask that covers their nose and mouth for the entire time they are in the building. Anyone who cannot or will not wear a mask will be asked to leave. documented in this encounter OR Notes * Preprocedure Instructions - Vernon Chris RN - 01/11/2022 1230 EST Tara Yun has been instructed as follows regarding medication administration for the day of the scheduled procedure. Date of Surgery: 01/13/22 Instructions for Taking Medications Day of Surgery Medication Sig Last Dose Hold DOS Take DOS albuterol 90 mcg/actuation inhaler Inhale 1-2 Puffs as directed every 4 hours as needed for Wheezing. y amitriptyline (ELAVIL) 25 mg tablet Take 1 Tablet by mouth at bedtime. y apixaban (ELIQUIS) 2.5 mg tablet Take 1 Tablet by mouth 2 times daily. 01/10/22 per pt, states instructed by Dr. Padilla with Hematology ferrous sulfate 324 mg (65 mg iron) tablet,delayed release (/EC) Take 1 Tablet by mouth every 48 hours. 01/10/22- per pt furosemide (LASIX) 20 mg tablet TAKE 1 TAB BY MOUTH EVERY MORNING FOR FLUID IN LEGS IF SWELLING IS WORSE THAN USUAL THEN TAKE 2 EVERY MORNING. MAX DAILY DOSE IS 40 MG PER DAY. x levothyroxine (SYNTHROID) 25 mcg tablet Take 1 Tablet by mouth daily before breakfast. y mupirocin (BACTROBAN) 2 % ointment Apply 3 times a day for 1 week for painful sore on lower right leg. x naloxone (NARCAN) 4 mg/actuation nasal spray 0.1 mL by nasal route as needed for Opioid Reversal. Repeat every 2-3 minutes if not effective and overdose is suspected. (spray is harmless in excess). If needed ondansetron (ZOFRAN-ODT) 4 mg disintegrating tablet TAKE 1 TABLET BY MOUTH EVERY 4 TO 6 HOURS NEEDED FOR NAUSEA. y oxyCODONE (ROXICODONE) 5 mg immediate release tablet Take 1 Tablet by mouth 3 times daily as neededfor Pain. Daily Max: 15 mg Yes, takes one per day usually OXYGEN-AIR DELIVERY SYSTEMS MISC 2 L by misc (non-drug; combo route) route at bedtime. pantoprazole (PROTONIX) 40 mg tablet Take 1 Tablet by mouth 2 times daily. y sertraline (ZOLOFT) 50 mg tablet TAKE 1 TABLET BY MOUTH EVERY DAY y spironolactone (ALDACTONE) 50 mg tablet TAKE 1 TABLET BY MOUTH EVERY DAY x sucralfate (CARAFATE) 1 gram tablet Take 1 Tablet by mouth 4 times daily. Hold for 24 hours prior to procedure SYMBICORT 160-4.5 mcg/actuation HFA aerosol inhaler inhaler INHALE 2 PUFFS DIRECTED DAILY. y traZODone (DESYREL) 150 mg tablet Take 2 Tablets by mouth at bedtime. y documented in this encounter Plan of Treatment Upcoming Encounters Date Type Department Care Team (Late st Contact Info) Description 01/04/2025 13:00 EST Office Visit [facility] Ophthalmology - [address] [phone] Gagandeep Rome MD [address] [place] [address] 5 [place] [phone] 02/11/2025 13:30 EDT Telemedicine [facility] Hematology & Oncology [address] [phone] Dana Padilla MD [address] [place] [address] 2 [place] [phone] documented as of this encounter Visit Diagnoses Not on filedocumented in this encounter Discontinued Medications Medication Sig Discontinue Reason Start Date End Da te sucralfate (CARAFATE) 100 mg/mL suspension Take 10 mL by mouth 4 times daily (before meals and at bedtime). Therapy completed 12/09/2021 01/11/2022 documented as of this encounter Care Teams Human Resources Advisor Relationship Specialty Start Date End Date Emigdio Veronica MD [address] [place] [phone] PCP - General Internal Medicine - Primary Care 05/22/20 02/21/24 Starr Paige MD [facility] [address] [place] [phone] Hematology 10/08/21 06/09/22 documented as of this encounter
--- OUTSIDE RECORDS SUMMARY | 2024-11-22 17:08 | XMS_ITS | Encounter Summary ---
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 5 [place] [phone] 02/11/2025 13:30 EDT Telemedicine [facility] Hematology & Oncology [address] [phone] Dana Padilla MD [address] [place] [address] 2 [place] [phone] documented as of this encounter Visit Diagnoses Not on filedocumented in this encounter Additional Health Concerns Infection Onset Date Last Indicated Resolved Time R/O COVID-19 12/14/2021 12/14/2021 12/19/2021 22:1 5 EST documented as of this encounter Care Teams Hr Representative Relationship Specialty Start Date End Date Emigdio Veronica MD 2 [place] [phone] PCP - General Internal Medicine - Primary Care 05/22/20 02/21/24 Starr Paige MD [address] [place] [phone] Hematology 10/08/21 06/09/22 documented as of this encounter
--- OUTSIDE RECORDS SUMMARY | 2024-11-22 17:08 | XMS_ITS | Encounter Summary ---
Author Organization [facility] Address [address] [place] [address] Care Team Providers Care Propulsion Generator Repairer Name Role Phone Emigdio Veronica MD Primary Care Provider + Starr Paige MD Unavailable [phone] Dana Padilla MD Unavailable Reason for Visit * Reason Onset Date Comments Patient Outreach 12/14/2021 in the ED Encounter Details Date Type Department Care Team (Late st Contact Info) Description 12/14/2021 Telephone [facility] Hematology & Oncology - [address] [address] Dana Padilla MD [address] [place] [address], Level [address] [place] [phone] Patient Outreach (in the ED) Social History Tobacco Use Types Packs/Day Years [...] Job Start Date 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 Her platelet count is below 141. Patient wanting to make Dr. Padilla aware. documented in this encounter Plan of Treatment Upcoming Encounters Date Type Department Care Team (Late st Contact Info) Description 01/04/2025 13:00 EST Office Visit [facility] Ophthalmology - [address] [phone] Gagandeep Rome MD [address] [place] [address] 5 [place] [phone] 02/11/2025 13:30 EDT Telemedicine [facility] Hematology & Oncology - [address] [phone] Dana Padilla MD [address] [place] [address], [facility] 2 [place] [phone] documented as of this encounter Visit Diagnoses Not on filedocumented in this encounter Additional Health Concerns Infection Onset Date Last Indicated Resolved Time R/O COVID-19 12/14/2021 12/14/2021 12/19/2021 22:1 5 EST R/O COVID-19 04/26/2022 04/26/2022 04/26/2022 23:4 5 EDT R/O COVID-19 Comment:Neg test 05/07/2022 05/07/2022 05/07/2022 15:57 EDT documented as of this encounter Care Teams Propulsion Generator Repairer Relationship Specialty Start Date End Date Emigdio Veronica MD 2 [place] [phone] PCP - General Internal Medicine - Primary Care 05/22/20 02/21/24 Starr Paige MD [address] [place], [place] [phone] Hematology 10/08/21 06/09/22 Dana Padilla MD 111 [facility] Level 2 [place] [phone] Hematology 01/13/22 06/09/22 documented as of this encounter
--- OUTSIDE RECORDS SUMMARY | 2024-11-22 17:08 | XMS_ITS | Encounter Summary ---
Author Organization [facility] Address [address] [place] [address] Care Team Providers Care It Service Technician Name Role Phone Emigdio Veronica MD Primary Care Provider + Starr Paige MD Unavailable [phone] Encounter Details Date Type Department Care Team (Late st Contact Info) Description 01/04/2022 Orders Only [facility] Gastroenterology - [facility] [address] [place] [place], [place] [phone] Micheal Moseley MD PhD 111 [facility], Level [address] [place] [address] Encounter for preprocedure screening laboratory testing for COVID-19 (Primary Dx) Social History Tobacco Use Types [...] 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 Not [...] documented in this encounter Progress Notes * Tennille Liriano RN - 01/04/2022 0951 EST Covid test ordered pre-procedure for upper endoscopy scheduled on 01/13/22 documented in this encounter Plan of Treatment Upcoming Encounters Date Type Department Care Team (Late st Contact Info) Description 01/04/2025 13:00 EST Office Visit [facility] Ophthalmology - [address] [phone] Gagandeep Rome MD [address] [place] [address], [facility] 5 [place] [phone] 02/11/2025 13:30 EDT Telemedicine [facility] Hematology & Oncology [address] [phone] Dana Padilla MD [address] [place] [address], [facility] 2 [place] [address] documented as of this encounter Results * COVID-19 TESTING (01/10/2022 10:41 EST) COVID-19 rt-PCR Result Negative Negative 01/11/2022 12:05 EST [facility] Comment: This test has [...] performed using the dom SARS-CoV-2 assay ([employer] on the Dom 6800 System Performing Lab Dom 6800 [facility] Lab 01/11/2022 12:05 EST [facility] Swab BOTH ANTERIOR NARES / Unknown Swab / Unknown 01/10/2022 10:41 EST 01/10/2022 10:41 EST Micheal Moseley MD PhD MICROBIOLOGY - GENERAL ORDERABLES Final Result [facility] [address] [place] [address] documented in this encounter Visit Diagnoses Diagnosis Encounter for preprocedure screening laboratory testing for COVID-19- Primary documented in this encounter Care Teams It Service Technician Relationship Specialty Start Date End Date Emigdio Veronica MD 2 [place] [phone] PCP - General Internal Medicine - Primary Care 05/22/20 02/21/24 Starr Paige MD [address] [place] [phone] Hematology 10/08/21 06/09/22 documented as of this encounter
--- OUTSIDE RECORDS SUMMARY | 2024-11-22 17:08 | XMS_ITS | Encounter Summary ---
Author Organization [facility] Address [address] [place] [address] Care Team Providers Care Engineering Associate Name Role Phone Emigdio Veronica MD Primary Care Provider + Starr Paige MD Unavailable [phone] Encounter Details Date Type Department Care Team (Late st Contact Info) Description 01/11/2022 Orders Only [facility] Hematology & Oncology - 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 Not on [...] EST Office Visit [facility] Ophthalmology [address] [phone] Gagandeep Rome MD [address] [place] [address], [facility] [address] [place] [address] 02/11/2025 13:30 EDT Telemedicine [facility] Hematology & Oncology [address] [phone] Dana Padilla MD [address] [place] [address], [facility] [address] [place] [address] documented as of this encounter Results * (ABNORMAL) COMPLETE BLOOD COUNT AND DIFFERENTIAL (04/16/2022 10:45 EDT) WBC 3.22(L) 4.00 - 12.40 K/cmm 04/16/2022 11:56 EDT [facility] RBC 3.69(L) 3.86 - 5.04 M/cmm 04/16/2022 11:56 T [facility] Hemoglobin 10.8(L) 11.6 - 15.2 gm/dL 04/16/2022 11:56 EDT [facility] HCT 32.1(L) 34.9 - 44.4 % 04/16/2022 11:56 T [facility] MCV 87 81 - 98 fl 04/16/2022 11:56 T [facility] MCH 29.3 26.7 - 33.3 pg 04/16/2022 11:56 [facility] MCHC 33.6 32.1 - 35.9 gm/dL 04/16/2022 11:56 [facility] RDW-CV 14.8(H) <14.7 % 04/16/2022 11:56 [facility] RDW-SD 46.4 <50.4 fl 04/16/2022 11:56 [facility] PLT 82(L) 141 - 377 K/cmm 04/16/2022 11:56 [facility] MPV 10.3 9.5 - 12.7 fl 04/16/2022 11:56 [facility] % Neutrophils 70.5 % 04/16/2022 11:56 [facility] % Lymphocytes 11.5 % 04/16/2022 11:56 [facility] % Monocytes 14.0 % 04/16/2022 11:56 [facility] % Eosinophils 3.1 % 04/16/2022 11:56 [facility] % Basophils 0.9 % 04/16/2022 11:56 [facility] % Immature Grans 0.0 % 04/16/20 11:56 [facility] Absolute Neutrophils 2.27 2.20 - 8.85 K/cmm 04/16/2022 11:56 [facility] Absolute Lymphocytes 0.37(L) 1.09 - 3.30 K/cmm 04/16/2022 11:56 [facility] Absolute Monocytes 0.45 0.10 - 0.80 K/cmm 04/16/2022 11:56 [facility] Absolute Eosinophils 0.10 0.03 - 0.61 K/cmm 04/16/2022 11:56 [facility] ABS Basophils 0.03 0.01 - 0.11 K/cmm 04/16/2022 11:56 [facility] Absolute Immature Grans 0.00 0.00 - 0.06 K/cmm 04/16/2022 11:56 EDT [facility] Type of Differential: Auto 04/16/2022 11:56 [facility] Blood VENOUS BLOOD / Unknown Venipuncture / Unknown 04/16/2022 10:45 EDT 04/16/2022 10:45 EDT us Dana Padilla MD PACKAGES & DNA PROBE ORDERABLES Final Result [facility] [address] [place] [address] * (ABNORMAL) COMPLETE BLOOD COUNT AND DIFFERENTIAL (03/31/2022 15:03 EDT) WBC 4.41 4.00 - 12.40 K/cmm 03/31/2022 16:44 [facility] RBC 4.12 3.86 - 5.04 M/cmm 03/31/2022 16:44 [facility] Hemoglobin 11.7 11.6 - 15.2 gm/dL 03/31/2022 16:44 [facility] HCT 36.1 34.9 - 44.4 % 03/31/2022 16:44 [facility] MCV 88 81 - 98 fl 03/31/2022 16:44 [facility] MCH 28.4 26.7 - 33.3 pg 03/31/2022 16:44 [facility] MCHC 32.4 32.1 - 35.9 gm/dL 03/31/2022 16:44 [facility] RDW-CV 15.0(H) <14.7 % 03/31/2022 16:44 [facility] RDW-SD 47.9 <50.4 fl 03/31/2022 16:44 [facility] PLT 105(L) 141 - 377 K/cmm 03/31/2022 16:44 [facility] MPV 10.4 9.5 - 12.7 fl 03/31/2022 16:44 [facility] % Neutrophils 78.7 % 03/31/2022 16:44 [facility] % Lymphocytes 8.6 % 03/31/2022 16:44 [facility] % Monocytes 11.3 % 03/31/2022 16:44 [facility] % Eosinophils 0.7 % 03/31/2022 16:44 [facility] % Basophils 0.5 % 03/31/2022 16:44 [facility] % Immature Grans 0.2 % 03/31/20 16:44 [facility] Absolute Neutrophils 3.47 2.20 - 8.85 K/cmm 03/31/2022 16:44 [facility] Absolute Lymphocytes 0.38(L) 1.09 - 3.30 K/cmm 03/31/2022 16:44 [facility] Absolute Monocytes 0.50 0.10 - 0.80 K/cmm 03/31/2022 16:44 [facility] Absolute Eosinophils 0.03 0.03 - 0.61 K/cmm 03/31/2022 16:44 [facility] ABS Basophils 0.02 0.01 - 0.11 K/cmm 03/31/2022 16:44 [facility] Absolute Immature Grans 0.01 0.00 - 0.06 K/cmm 03/31/2022 16:44 [facility] Type of Differential: Auto 03/31/2022 16:44 [facility] Blood VENOUS BLOOD / Unknown Venipuncture / Unknown 03/31/2022 15:03 EDT 03/31/2022 15:03 EDT us Dana Padilla MD PACKAGES & DNA PROBE ORDERABLES Final Result [facility] [address] [place] [address] * (ABNORMAL) COMPLETE BLOOD COUNT AND DIFFERENTIAL (02/15/2022 14:52 EDT) WBC 3.30(L) 4.00 - 12.40 K/cmm 02/15/2022 15:35 [facility] RBC 3.58(L) 3.86 - 5.04 M/cmm 02/15/2022 15:35 [facility] Hemoglobin 10.1(L) 11.6 - 15.2 gm/dL 02/15/2022 15:35 [facility] HCT 30.8(L) 34.9 - 44.4 % 02/15/2022 15:35 [facility] MCV 86 81 - 98 fl 02/15/2022 15:35 [facility] MCH 28.2 26.7 - 33.3 pg 02/15/2022 15:35 [facility] MCHC 32.8 32.1 - 35.9 gm/dL 02/15/2022 15:35 [facility] RDW-CV 17.2(H) <14.7 % 02/15/2022 15:35 [facility] RDW-SD 54.4(H) <50.4 fl 02/15/2022 15:35 [facility] PLT 86(L) 141 - 377 K/cmm 02/15/2022 15:35 [facility] MPV 9.3(L) 9.5 - 12.7 fl 02/15/2022 15:35 [facility] % Neutrophils 74.6 % 02/15/2022 15:35 [facility] % Lymphocytes 9.1 % 02/15/2022 15:35 [facility] % Monocytes 12.4 % 02/15/2022 15:35 [facility] % Eosinophils 3.0 % 02/15/2022 15:35 [facility] % Basophils 0.6 % 02/15/2022 15:35 [facility] % Immature Grans 0.3 % 02/16/20 15:35 [facility] Absolute Neutrophils 2.46 2.20 - 8.85 K/cmm 02/15/2022 15:35 [facility] Absolute Lymphocytes 0.30(L) 1.09 - 3.30 K/cmm 02/15/2022 15:35 [facility] Absolute Monocytes 0.41 0.10 - 0.80 K/cmm 02/15/2022 15:35 [facility] Absolute Eosinophils 0.10 0.03 - 0.61 K/cmm 02/15/2022 15:35 [facility] ABS Basophils 0.02 0.01 - 0.11 K/cmm 02/15/2022 15:35 [facility] Absolute Immature Grans 0.01 0.00 - 0.06 K/cmm 02/15/2022 15:35 [facility] Type of Differential: Auto 02/15/2022 15:35 [facility] Blood VENOUS BLOOD / Unknown Venipuncture / Unknown 02/15/2022 14:52 EDT 02/15/2022 14:52 EDT us Dana Padilla MD PACKAGES & DNA PROBE ORDERABLES Final Result [facility] [address] [place] [address] * (ABNORMAL) COMPLETE BLOOD COUNT AND DIFFERENTIAL (02/09/2022 8:22 EDT) WBC 3.23(L) 4.00 - 12.40 K/cmm 02/09/2022 11:27 [facility] RBC 3.84(L) 3.86 - 5.04 M/cmm 02/09/2022 11:27 [facility] Hemoglobin 10.7(L) 11.6 - 15.2 gm/dL 02/09/2022 11:27 [facility] HCT 32.7(L) 34.9 - 44.4 % 02/09/2022 11:27 [facility] MCV 85 81 - 98 fl 02/09/2022 11:27 [facility] MCH 27.9 26.7 - 33.3 pg 02/09/2022 11:27 [facility] MCHC 32.7 32.1 - 35.9 gm/dL 02/09/2022 11:27 [facility] RDW-CV 17.3(H) <14.7 % 02/09/2022 11:27 [facility] RDW-SD 54.4(H) <50.4 fl 02/09/2022 11:27 [facility] PLT 96(L) 141 - 377 K/cmm 02/09/2022 11:27 [facility] MPV 10.1 9.5 - 12.7 fl 02/09/2022 11:27 [facility] % Neutrophils 75.9 % 02/09/2022 11:27 [facility] % Lymphocytes 10.5 % 02/09/2022 11:27 [facility] % Monocytes 9.6 % 02/09/2022 11:27 [facility] % Eosinophils 3.1 % 02/09/2022 11:27 [facility] % Basophils 0.6 % 02/09/2022 11:27 [facility] % Immature Grans 0.3 % 02/10/20 11:27 [facility] Absolute Neutrophils 2.45 2.20 - 8.85 K/cmm 02/09/2022 11:27 [facility] Absolute Lymphocytes 0.34(L) 1.09 - 3.30 K/cmm 02/09/2022 11:27 [facility] Absolute Monocytes 0.31 0.10 - 0.80 K/cmm 02/09/2022 11:27 [facility] Absolute Eosinophils 0.10 0.03 - 0.61 K/cmm 02/09/2022 11:27 [facility] ABS Basophils 0.02 0.01 - 0.11 K/cmm 02/09/2022 11:27 [facility] Absolute Immature Grans 0.01 0.00 - 0.06 K/cmm 02/09/2022 11:27 EDT [facility] Type of Differential: Auto 02/09/2022 11:27 EDT [facility] Blood VENOUS BLOOD / Unknown Venipuncture / Unknown 02/09/2022 8:22 EDT 02/09/2022 8:22 EDT Dana Padilla MD PACKAGES & DNA PROBE ORDERABLES Final Result [facility] [address] [place] [address] * (ABNORMAL) COMPLETE BLOOD COUNT AND DIFFERENTIAL (01/28/2022 10:16 EST) WBC 3.35(L) 4.00 - 12.40 K/cmm 01/28/2022 11:21 [facility] RBC 3.76(L) 3.86 - 5.04 M/cmm 01/28/2022 11:21 [facility] Hemoglobin 10.4(L) 11.6 - 15.2 gm/dL 01/28/2022 11:21 [facility] HCT 32.1(L) 34.9 - 44.4 % 01/28/2022 11:21 [facility] MCV 85 81 - 98 fl 01/28/2022 11:21 [facility] MCH 27.7 26.7 - 33.3 pg 01/28/2022 11:21 [facility] MCHC 32.4 32.1 - 35.9 gm/dL 01/28/2022 11:21 [facility] RDW-CV 17.8(H) <14.7 % 01/28/2022 11:21 [facility] RDW-SD 56.3(H) <50.4 fl 01/28/2022 11:21 [facility] PLT 01/28/2022 11:21 [facility] Comment:Unreportable due to presence of platelet clumps. MPV 01/28/2022 11:21 [facility] Comment:Not available. % Neutrophils 76.7 % 01/28/2022 11:21 [facility] % Lymphocytes 6.6 % 01/28/2022 11:21 [facility] % Monocytes 14.3 % 01/28/2022 11:21 [facility] % Eosinophils 1.5 % 01/28/2022 11:21 [facility] % Basophils 0.6 % 01/28/2022 11:21 [facility] % Immature Grans 0.3 % 01/29/20 11:21 [facility] Absolute Neutrophils 2.57 2.20 - 8.85 K/cmm 01/28/2022 11:21 [facility] Absolute Lymphocytes 0.22(L) 1.09 - 3.30 K/cmm 01/28/2022 11:21 [facility] Absolute Monocytes 0.48 0.10 - 0.80 K/cmm 01/28/2022 11:21 [facility] Absolute Eosinophils 0.05 0.03 - 0.61 K/cmm 01/28/2022 11:21 [facility] ABS Basophils 0.02 0.01 - 0.11 K/cmm 01/28/2022 11:21 [facility] Absolute Immature Grans 0.01 0.00 - 0.06 K/cmm 01/28/2022 11:21 [facility] Type of Differential: Auto 01/28/2022 11:21 [facility] Blood VENOUS BLOOD / Unknown Venipuncture / Unknown 01/28/2022 10:16 EST 01/28/2022 10:16 EST us Dana Padilla MD PACKAGES & DNA PROBE ORDERABLES Final Result [facility] [address] [place] [address] * (ABNORMAL) COMPLETE BLOOD COUNT AND DIFFERENTIAL (01/19/2022 9:04 EST) WBC 3.04(L) 4.00 - 12.40 K/cmm 01/19/2022 10:47 [facility] RBC 3.97 3.86 - 5.04 M/cmm 01/19/2022 10:47 [facility] Hemoglobin 10.9(L) 11.6 - 15.2 gm/dL 01/19/2022 10:47 [facility] HCT 34.3(L) 34.9 - 44.4 % 01/19/2022 10:47 [facility] MCV 86 81 - 98 fl 01/19/2022 10:47 [facility] MCH 27.5 26.7 - 33.3 pg 01/19/2022 10:47 [facility] MCHC 31.8(L) 32.1 - 35.9 gm/dL 01/19/2022 10:47 [facility] RDW-CV 17.7(H) <14.7 % 01/19/2022 10:47 [facility] RDW-SD 56.6(H) <50.4 fl 01/19/2022 10:47 [facility] PLT 102(L) 141 - 377 K/cmm 01/19/2022 10:47 [facility] MPV 10.2 9.5 - 12.7 fl 01/19/2022 10:47 [facility] % Neutrophils 75.4 % 01/19/2022 10:47 [facility] % Lymphocytes 9.5 % 01/19/2022 10:47 [facility] % Monocytes 11.2 % 01/19/2022 10:47 [facility] % Eosinophils 3.3 % 01/19/2022 10:47 [facility] % Basophils 0.3 % 01/19/2022 10:47 [facility] % Immature Grans 0.3 % 01/20/20 10:47 [facility] Absolute Neutrophils 2.29 2.20 - 8.85 K/cmm 01/19/2022 10:47 [facility] Absolute Lymphocytes 0.29(L) 1.09 - 3.30 K/cmm 01/19/2022 10:47 [facility] Absolute Monocytes 0.34 0.10 - 0.80 K/cmm 01/19/2022 10:47 [facility] Absolute Eosinophils 0.10 0.03 - 0.61 K/cmm 01/19/2022 10:47 [facility] ABS Basophils 0.01 0.01 - 0.11 K/cm 01/19/2022 10:47 [facility] Absolute Immature Grans 0.01 0.00 - 0.06 K/[facility] 01/19/2022 10:47 [facility] Type of Differential: Auto 01/19/2022 10:47 [facility] Blood VENOUS BLOOD / Unknown Venipuncture / Unknown 01/19/2022 9:04 EST 01/19/2022 9:06 EST Dana Padilla MD PACKAGES & DNA PROBE ORDERABLES Final Result [facility] [address] [place] [address] documented in this encounter Visit Diagnoses Diagnosis Portal vein thrombosis- Primary Thrombocytopenia (HCC-CMS) Thrombocytopenia, unspecified documented in this encounter Care Teams Engineering Associate Relationship Specialty Start Date End Date Emigdio Veronica MD [address] [place] [phone] PCP - General Internal Medicine - Primary Care 05/22/20 02/21/24 Starr Paige MD [address] [place] [phone] Hematology 10/08/21 06/09/22 documented as of this encounter
--- OUTSIDE RECORDS SUMMARY | 2024-11-22 17:08 | XMS_ITS | Encounter Summary ---
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 Not [...] EST Office Visit [facility] Ophthalmology - [address] [phone] Gagandeep Rome MD [address] [place] [address], [facility] [address] [place] [phone] 02/11/2025 13:30 EDT Telemedicine [facility] Hematology & Oncology - [address] [phone] Dana Padilla MD [address] [place] [address] 2 [place] [phone] documented as of this encounter Visit Diagnoses Not on filedocumented in this encounter Additional Health Concerns Infection Onset Date Last Indicated Resolved Time R/O COVID-19 12/14/2021 12/14/2021 12/19/2021 22:1 5 EST documented as of this encounter Care Teams Automation Software Engineer Relationship Specialty Start Date End Date Emigdio Veronica MD [address] [place] [phone] PCP - General Internal Medicine - Primary Care 05/22/20 02/21/24 Starr Paige MD [address] [place] [phone] Hematology 10/08/21 06/09/22 documented as of this encounter
--- OUTSIDE RECORDS SUMMARY | 2024-11-22 17:08 | XMS_ITS | Encounter Summary ---
Author Organization [facility] Address [address] [place] [address] Care Team Providers Care Underground Mine Superintendent Name Role Phone Emigdio Veronica MD Primary Care Provider + Starr Piage MD Unavailable [phone] Encounter Details Date Type Department Care Team (Late st Contact Info) Description 01/11/2022 9:00 EST Phlebotomy Only [facility] Laboratory Services - [address] [phone] [facility] Portal vein thrombosis; Upper GI bleed Social History Tobacco Use Types Packs/Day Years [...] 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 Date 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 [...] Visit [facility] Ophthalmology - [address] [phone] Gagandeep Rome MD [address] [place] [address] 5 [place] [phone] 02/11/2025 13:30 EDT Telemedicine [facility] Hematology & Oncology [address] [address] Dana Padilla MD [address] [place] [address] 2 [place] [phone] documented as of this encounter Procedures Procedure Name Priority Date/Time Associated Diagnosis Comments COMPLETE BLOOD COUNT Routine 01/11/2022 8:58 EST Portal vein thrombosis Upper GI bleed documented in this encounter Results * (ABNORMAL) COMPLETE BLOOD COUNT (01/11/2022 8:58 EST) WBC 3.27(L) 4.00 - 12.40 K/cmm 01/11/2022 10:59 EST [facility] RBC 4.05 3.86 - 5.04 M/cmm 01/11/2022 10:59 EST [facility] Hemoglobin 11.0(L) 11.6 - 15.2 gm/dL 01/11/2022 10:59 EST [facility] HCT 35.8 34.9 - 44.4 % 01/11/2022 10:59 [facility] MCV 88 81 - 98 fl 01/11/2022 10:59 [facility] MCH 27.2 26.7 - 33.3 pg 01/11/2022 10:59 EST [facility] MCHC 30.7(L) 32.1 - 35.9 gm/dL 01/11/2022 10:59 [facility] RDW-CV 17.7(H) <14.7 % 01/11/2022 10:59 [facility] RDW-SD 57.7(H) <50.4 fl 01/11/2022 10:59 [facility] PLT 111(L) 141 - 377 K/cmm 01/11/2022 10:59 [facility] MPV 10.2 9.5 - 12.7 fl 01/11/2022 10:59 [facility] Blood VENOUS BLOOD / Unknown Venipuncture / Unknown 01/11/2022 8:58 EST 01/11/2022 8:58 EST Dana Padilla MD HEMATOLOGY & PF4 ORDERABLES Pricila l Result [facility] [address] [place] [address] documented in this encounter Visit Diagnoses Diagnosis Portal vein thrombosis Upper GI bleed Hemorrhage of gastrointestinal tract, unspecified documented in this encounter Care Teams Underground Mine Superintendent Relationship Specialty Start Date End Date Emigdio Veronica MD [address] [place] [phone] PCP - General Internal Medicine - Primary Care 05/22/20 02/21/24 Starr Paige MD [address] [facility] [place] [phone] Hematology 10/08/21 06/09/22 documented as of this encounter
--- OUTSIDE RECORDS SUMMARY | 2024-11-22 17:09 | XMS_ITS | Encounter Summary ---
Author Organization [facility] Address [address] [place] [address] Care Team Providers Care Malthouse Laborer Name Role Phone Emigdio Veronica MD Primary Care Provider + Starr Paige MD Unavailable [phone] Encounter Details Date Type Department Care Team (Late st Contact Info) Description 10/26/2021 12:30 EST Phlebotomy Only [facility] ED Center 2 Phlebotomy [address] [place], [place] [id number] Stage Producer, [facility] Phlebotomy Pancytopenia (HCC) (HCC-CMS); Portal vein thrombosis; Gastrointestinal hemorrhage associated with duodenal ulcer Social History Tobacco Use Types Packs/Day Years Used Date Smoking Tobacco: Former Cigarettes 0.3 35 0 08/20/1986 - 08/20/2021 Smokeless Tobacco: Never Alcohol Use Standard Drinks/Week Comments No 0 (1 standard drink = 0.6 oz pur e alcohol) Overall Financial Resource Strain (CARDIA) Answe r Date Recorded How hard is it for you to pa y for the very basics like food, housing, medical care, and heating? 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 Answer Date of Assessment Author No 10/08/2021 22:00 Lala Pearce RN * Are you blind or do you have serious difficulty seeing, even when wearing glasses? Answer Date of Assessment Author No 10/08/2021 22:00 Lala Pearce RN * Do you have serious difficulty walking or climbing stairs? (5 years old or older) Answer Date of Assessment Author No 10/08/2021 22:00 Lala Pearce RN * Do you have difficulty dressing or bathing? (5 years old or older) Answer Date of Assessment Author No 10/08/2021 22:00 Lala Pearce RN * Because of a physical, mental, or emotional condition, do you have difficulty doing errands alone such as visiting a doctor's office or shopping? (15 years old or older) Answer Date of Assessment Author No 10/08/2021 22:00 Lala Pearce RN documented as of this encounter Mental Status * Because of a physical, mental, or emotional condition, do you have serious difficulty concentrating, remembering, or making decisions? (5 years old or older) Answer Entry Date Author No 10/08/2021 22:00 Lala Pearce RN documented in this encounter Plan of Treatment Upcoming Encounters Date Type Department Care Team (Destini Contact Info) Description 01/04/2025 13:00 EST Office Visit [facility] Ophthalmology - [address] [phone] Gagandeep Rome MD 111 [facility], Level 5 [place] [phone] 02/11/2025 13:[address] [facility] [place] Hematology & Oncology - [address] [phone] Dana Padilla MD 111 [facility] 2 [place] [address] documented as of this encounter Procedures Procedure Name Priority Date/Time Associated Diagnosis Comments COMPLETE BLOOD COUNT STAT 10/26/2021 12:46 EST Pancytopenia (HCC) (HCC-[facility]) Portal vein thrombosis documented in this encounter Results * (ABNORMAL) COMPLETE BLOOD COUNT (10/26/2021 12:46 EST) WBC 5.40 4.00 - 12.40 K/cmm 10/26/2021 13:04 [facility] RBC 3.51(L) 3.86 - 5.04 M/cmm 10/26/2021 13:04 [facility] Hemoglobin 9.8(L) 11.6 - 15.2 gm/dL 10/26/2021 13:04 [facility] HCT 30.7(L) 34.9 - 44.4 % 10/26/2021 13:04 [facility] MCV 88 81 - 98 fl 10/26/2021 13:04 [facility] MCH 27.9 26.7 - 33.3 pg 10/26/2021 13:04 [facility] MCHC 31.9(L) 32.1 - 35.9 gm/dL 10/26/2021 13:04 [facility] RDW-CV 15.8(H) <14.7 % 10/26/2021 13:04 [facility] RDW-SD 50.4(H) <50.4 fl 10/26/2021 13:04 [facility] PLT 158 141 - 377 K/cmm 10/26/2021 13:04 [facility] MPV 9.4(L) 9.5 - 12.7 fl 10/26/2021 13:04 [facility] Blood VENOUS BLOOD / Unknown Venipuncture / Unknown 10/26/2021 12:46 EST 10/26/2021 12:50 EST Starr Paige MD HEMATOLOGY & PF4 ORDERABLES Final Result Performing Organization Address City/State/[facility] Co de Phone Number [facility] [address] [place] [address] documented in this encounter Visit Diagnoses Diagnosis Pancytopenia (HCC-CMS) Other pancytopenia Portal vein thrombosis Gastrointestinal hemorrhage associated with duodenal ulcer documented in this encounter Care Teams Malthouse Laborer Relationship Specialty Start Date End Date Emigdio Veronica MD [address] [place] [phone] PCP - General Internal Medicine - Primary Care 05/22/20 02/21/24 Starr Paige MD [facility] [address] [place] [phone] Hematology 10/08/21 06/09/22 documented as of this encounter
--- OUTSIDE RECORDS SUMMARY | 2024-11-22 17:09 | XMS_ITS | Encounter Summary ---
Author Organization [facility] Address [address] [place] [address] Care Team Providers Care Professor In Family Studies Name Role Phone Emigdio Veronica MD Primary Care Provider + Starr Paige MD Unavailable [phone] Reason for Visit * Reason Onset Date Comments Medications Refill 10/26/2021 Encounter Details Date Type Department Care Team (Late st Contact Info) Description 10/26/2021 Refill [facility] Hematology & Oncology - [facility] [address] [place] [address] Maritza Miller, RN [address] [place] [address] Medications Refill Social History Tobacco Use Types [...] 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 12 mL 2 10/26/2021 11/09/2021 documented in this encounter Plan of Treatment Upcoming Encounters Date Type Department Care Team (Late st Contact Info) Description 01/04/2025 13:00 EST Office Visit [facility] Ophthalmology - [address] [phone] Gagandeep Rome MD [address] [place] [address] 5 [place] [phone] 02/11/2025 13:30 EDT Telemedicine [facility] Hematology & Oncology - [address] [phone] Dana Padilla MD [address] [place] [address] 2 [place] [phone] documented as of this encounter Visit Diagnoses Diagnosis Superior mesenteric vein thrombosis (HCC-CMS)- Primary Acute vascular insufficiency of intestine Portal vein thrombosis documented in this encounter Care Teams Professor In Family Studies Relationship Specialty Start Date End Date Emigdio Veronica MD 2 [place] [phone] PCP - General Internal Medicine - Primary Care 05/22/20 02/21/24 Starr Paige MD [address] [place] [phone] Hematology 10/08/21 06/09/22 documented as of this encounter
--- OUTSIDE RECORDS SUMMARY | 2024-11-22 17:09 | XMS_ITS | Encounter Summary ---
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 30 Tablet 3 11/11/2021 05/07/2022 documented in this encounter Plan of Treatment Upcoming Encounters Date Type Department Care Team (Late st Contact Info) Description 01/04/2025 13:00 EST Office Visit [facility] Ophthalmology - [address] [phone] Gagandeep Rome MD [address] [place] [address] 5 [place] [phone] 02/11/2025 13:30 EDT Telemedicine [facility] Hematology & Oncology [address] [phone] Dana Padilla MD [address] [place] [address] 2 [place] [phone] documented as of this encounter Visit Diagnoses Not on filedocumented in this encounter Care Teams Level Vial Inside Grinder Relationship Specialty Start Date End Date Emigdio Veronica MD 2 [place] [phone] PCP - General Internal Medicine - Primary Care 05/22/20 02/21/24 Starr Paige MD [address] [place] [phone] Hematology 10/08/21 06/09/22 documented as of this encounter
--- OUTSIDE RECORDS SUMMARY | 2024-11-22 17:09 | XMS_ITS | Encounter Summary ---
Author Organization [facility] Address [address] [place] [address] Care Team Providers Care Top Former Name Role Phone Emigdio Veronica MD Primary Care Provider + Starr Paige MD Unavailable [phone] Reason for Visit * Reason Comments Other Encounter Details Date Type Department Care Team (Late st Contact Info) Description 11/06/2021 [facility] Adult Primary Care - [address] [address] Val Morales MD Other Social History Tobacco Use Types Packs/Day Years Used Date Smoking Tobacco: Former Cigarettes 0.3 35 0 08/20/1981 - 08/20/2016 Smokeless Tobacco: Never Alcohol Use Standard [...] Industry 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 Date 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 End 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 [...] [facility] Ophthalmology - [address] [phone] Gagandeep Rome MD [address] [place] [address], Level [address] [place] [phone] 02/11/2025 13:30 EDT Telemedicine [facility] Hematology & Oncology - [address] [phone] Dana Padilla MD [address] [place] [address], [facility] 2 [place] [phone] documented as of this encounter Visit Diagnoses Not on filedocumented in this encounter Care Teams Top Former Relationship Specialty Start Date End Date Emigdio Veronica MD [address] [place] [phone] PCP - General Internal Medicine - Primary Care 05/22/20 02/21/24 Starr Paige MD [address] [place] [phone] Hematology 10/08/21 06/09/22 documented as of this encounter
--- OUTSIDE RECORDS SUMMARY | 2024-11-22 17:09 | XMS_ITS | Encounter Summary ---
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 Will continue lovenox at same doseand recheck it after next visit with me 12/07/21. Dana Padilla MD documented in this encounter Plan of Treatment Upcoming Encounters Date Type Department Care Team (Late st Contact Info) Description 01/04/2025 13:00 EST Office Visit [facility] Ophthalmology - [address] [phone] Gagandeep Rome MD [address] [place] [address], [facility] 5 [place] [phone] 02/11/2025 13:30 EDT Telemedicine [facility] Hematology & Oncology [address] [phone] Dana Padilla MD [address] [place] [address], [facility] 2 [place] [phone] documented as of this encounter Procedures Procedure Name Priority Date/Time Associated Diagnosis Comments COMPLETE BLOOD COUNT Routine 11/24/2021 11:47 EST Portal vein thrombosis Upper GI bleed documented in this encounter Results * (ABNORMAL) COMPLETE BLOOD COUNT (11/24/2021 11:47 EST) WBC 5.36 4.00 - 12.40 K/cmm 11/24/2021 12:[address] [facility] RBC 3.96 3.86 - 5.04 M/cmm 11/24/2021 12:[address] [facility] Hemoglobin 10.6(L) 11.6 - 15.2 gm/dL 11/24/2021 12:[address] [facility] HCT 33.8(L) 34.9 - 44.4 % 11/24/2021 12:53 [facility] MCV 85 81 - 98 fl 11/24/2021 12:53 [facility] MCH 26.8 26.7 - 33.3 pg 11/24/2021 12:53 [facility] MCHC 31.4(L) 32.1 - 35.9 gm/dL 11/24/2021 12:53 [facility] RDW-CV 15.7(H) <14.7 % 11/24/2021 12:53 [facility] RDW-SD 48.8 <50.4 fl 11/24/2021 12:53 [facility] PLT 185 141 - 377 K/cmm 11/24/2021 12:53 [facility] MPV 9.5 9.5 - 12.7 fl 11/24/2021 12:53 [facility] Blood VENOUS BLOOD / Unknown Venipuncture / Unknown 11/24/2021 11:47 EST 11/24/2021 11:47 EST us Dana Padilla MD HEMATOLOGY & PF4 ORDERABLES Pricila suri Result Performing Organization Address City/State/[facility] Co de Phone Number [facility] [address] [place] [address] documented in this encounter Visit Diagnoses Diagnosis Portal vein thrombosis Upper GI bleed Hemorrhage of gastrointestinal tract, unspecified documented in this encounter Care Teams Real Estate Closing Coordinator Relationship Specialty Start Date End Date Emigdio Veronica MD [address] [place] [phone] PCP - General Internal Medicine - Primary Care 05/22/20 02/21/24 Starr Paige MD [address] [place] [phone] Hematology 10/08/21 06/09/22 documented as of this encounter
--- OUTSIDE RECORDS SUMMARY | 2024-11-22 17:09 | XMS_ITS | Encounter Summary ---
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 18 mL 2 11/09/2021 12/16/2021 documented in this encounter Plan of Treatment Upcoming Encounters Date Type Department Care Team (Late st Contact Info) Description 01/04/2025 13:00 EST Office Visit [facility] Ophthalmology - [address] [phone] Gagandeep Rome MD [address] [place] [address] 5 [place] [phone] 02/11/2025 13:30 EDT Telemedicine [facility] Hematology & Oncology [address] [phone] Dana Padilla MD [address] [place] [address] 2 [place] [phone] documented as of this encounter Visit Diagnoses Diagnosis Portal vein thrombosis- Primary documented in this encounter Discontinued Medications Medication Sig Discontinue Reason Start Date End Da te enoxaparin (LOVENOX) 40 mg/0.4 mL injection Inject 40 mg into the skin daily. 10/26/2021 11/09/2021 documented as of this encounter Care Teams Census Enumerator Relationship Specialty Start Date End Date Emigdio Veronica MD [address] [place] [phone] PCP - General Internal Medicine - Primary Care 05/22/20 02/21/24 Starr Paige MD [address] [place] [phone] Hematology 10/08/21 06/09/22 documented as of this encounter
--- OUTSIDE RECORDS SUMMARY | 2024-11-22 17:09 | XMS_ITS | Encounter Summary ---
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 Not [...] Office Visit [facility] Ophthalmology - [address] [phone] Gagandeep Rome MD [address] [place] [address], [facility] 5 [place] [phone] 02/11/2025 13:30 EDT Telemedicine [facility] Hematology & Oncology - [address] [phone] Dana Padilla MD [address] [place] [address], [facility] 2 [place] [phone] documented as of this encounter Visit Diagnoses Not on filedocumented in this encounter Care Teams Restaurant Assistant Manager Relationship Specialty Start Date End Date Emigdio Veronica MD [address] [place] [phone] PCP - General Internal Medicine - Primary Care 05/22/20 02/21/24 Starr Paige MD [address] [place] [phone] Hematology 10/08/21 06/09/22 documented as of this encounter
--- OUTSIDE RECORDS SUMMARY | 2024-11-22 17:09 | XMS_ITS | Encounter Summary ---
Author Organization [facility] Address [address] [place] [address] Care Team Providers Care Rx Specialist Name Role Phone Emigdio Veronica MD Primary Care Provider + Starr Paige MD Unavailable [phone] Reason for Visit * Reason Comments Abdominal Pain follow up w labs Medication Management pain meds Medications Refill xanax Encounter Details Date Type Department Care Team (Late st Contact Info) Description 11/25/2021 13:15 EST Office Visit [facility] - [place] [address] [place] [address] Emigdio Veronica MD [address] [place] [phone] Chronic pain syndrome (Primary Dx); Insomnia, unspecified type; Healthcare maintenance Social History Tobacco Use Types Packs/Day Years Used Date Smoking Tobacco: Some Days Cigarettes 0.3 35 Started: 08/20/1981; Last attempted to quit: 08/20/2016 Smokeless Tobacco: Never Tobacco Cessation:Ready to Q uit: Yes; Counseling Given: Yes Alcohol Use Standard Drinks/Week Comments No 0 [...] 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 Answer Date of Assessment Author No 11/03/2021 16:08 EST Isabel Santiago RN * Are you blind or do [...] Instructions * Patient Instructions* Ashley Weems - 11/25/2021 13:15 EST Quitting smoking Stopping smoking is the [...] with a trained counselor. Tobacco Counseling in [facility] offers free counseling services to residents who are ready to cut back or quit using tobacco. Services include: phone coaching (NOW), online tools and support for those who would like to make changes on their own (www.Newsle), as well as in-person group workshops. Free nicotine replacement therapy is available through all of these resources. To learn more about your options visit www.CareDox.org or call 0-036-HATP-NOW ( ). To speak with an in-person tobacco counselor in [facility] call, [phone]. [place] Resident, please visit: [email or web address]/ I hope you quit smoking. I think [...] Max: 15 mg 84 Tablet 11/25/2021 2 amitriptyline (ELAVIL) 25 mg tablet Take 1 Tablet by mouth at bedtime. 60 Tablet 2 11/25/2021 2 ondansetron (ZOFRAN-ODT) 4 mg disintegrating tablet Take 1 Tablet by mouth every 4 to 6 hours as needed for Nausea. 21 Tablet 11/25/2021 2 documented in this encounter Progress Notes * Emigdio Veronica MD - 11/25/2021 1315 EST Tara Yun is a 61 y.o. female with a PMHx of cirrhosis secondary to NAFLD, portal vein thrombosis, thrombocytopenia hypersplenism, chronic pain syndrome, insomnia PRIMARY CARE PROVIDER: Emigdio Veronica CHIEF COMPLAINT: Chief Complaint Patient presents with ??? Abdominal Pain follow up w labs ??? Medication Management pain meds ??? Medications Refill xanax SUBJECTIVE: Tara Yun presents today for a follow-up visit for chronic pain and insomnia. As documented previously Tara has a longstanding history of chronic pain syndrome for which she has been treatedwith opioid therapy in the past. In recent months her pain which is now primarily localized to her abdomen has worsened believed to be secondary to a combination of splenic infarction and worsening portal vein thrombosis. She had recently been started on hydromorphone and weaned down to 2 mg twice daily after recent escalation in dosage due to acute pain. She reports that she is currently out of her hydromorphone and notes inconsistent relief with the medication. She reports primarily that her BID dosing of hydromorphone provided inadequate pain coverage throughout the day. She often took the medication TID over the last month. We discussed potentially returning to oxycodone for pain management given her improved renal function which she is open towards. She unfortunately is unable to take acetaminophen per hematology due to her history of thrombocytopenia and is unable to take any form of NSAID due to a history of GI bleed. In addition to addressing her pain she was also hoping to address chronic insomnia. This is similarto her chronic pain is a longstanding issue for which Gena has been on multiple sleep aids in the past. She most recently was prescribed trazodone and it increased her use to 250 mg nightly with little relief. She concedes that her pain maybe influencing her poor sleep. She confirms issues with both falling asleep and staying asleep. She recently saw Scottie Campuzano in our office for her insomniaand was given a trial of low-dose Xanax. She confirms that this medication helped but expresses understanding she cannot continue it indefinitely while on opiate therapy. She is resistant to restarting hypnotics noting that she when she was previously on ambien she had psychiatric side effects. Sheis open to trying a tricyclic antidepressant. She confirms current fatigue and abdominal pain. ROS as above Medications and history reviewed. Current Outpatient Medications Medication ??? albuterol 90 mcg/actuation inhaler ??? ALPRAZolam (XANAX) 0.25 mg tablet ??? amitriptyline (ELAVIL) 25 mg tablet ??? [...] mL (0.083 %) nebulizer solution OBJECTIVE: BP 103/49 (BP Cuff Location: Left arm, BP Patient Position: Sitting, BP Cuff Sizes: Adult, long) Pulse 85 Comment: r Temp 36.7 ??C (98 ??F) (Tympanic) Resp 16 Wt 89.2 kg (196 lb 9.6 oz) BMI34.83 kg/m?? Gen: Fatigued appearing middle age female, NAD HEENT: EOMI, PERRL, conjunctiva pink, no scleral injection/ icterus Extrem: Trace edema, warm and well perfused Skin: No rashes or erythema, intact Neuro: A&Ox3, CN II through XII grossly intact Recent Labs/Imaging: Reviewed in epic ASSESSMENT and PLAN: Tara was seen today for abdominal pain, medication management and medications refill. Diagnoses and all orders for this visit: Chronic pain syndrome: Chronic issue and multifactorial. Patient reporting poor pain coverage with hydromorphone dosed BID. Due to thrombocytopenia and history of GI bleed patient is unable to take acetaminophen or NSAIDs. Given that renal function has significantly improved in recent months will switch back to oxycodone for pain control. Discussed with the patient he daily maximum dose of 15 mg (MME of 24) this is roughly equivalent to her average use of hydromorphone at 6 mg daily over the last month. -Stop hydromorphone -Start oxycodone 5 mg Q6 PRN. Daily max of 15 mg / 3 tablets. Discussed with patient this limit today. 28-day supply prescribed - Will plan for a pain management follow-up in one month Insomnia, unspecified type: Longstanding issue, multifactorial and under poor control. Patient noting little relief with increase in trazodone to 250 mg nightly. Patient concedes that her poor pain control might be waning role in her insomnia. She was recently given a trial of low-dose Xanax which she states did help with her sleep, but we discussed that we would not be continuing this medicationgiven it's risks with concurrent use of opiates. Patient willing to return to a tricyclic antidepressant for sleep assistance. -Stop alprazolam / xanax -Stop trazodone -Start amitriptyline/ elavil at 25 mg nightly -Pain management as above -We will follow-up in 1 month. Low threshold to up titrate amitriptyline and pursue referral to psychological provider in the sleep center if sleep continues to be poorly controlled Healthcare maintenance -Patient overdue on multiple healthcare maintenance items. Unfortunately due to repeated time constraints in our recent office visits addressing other problems these items have not been able to be addressed. Did spend some time today encouraging the patient to reach out to our breast care center toset up a routine mammogram -We will attempt to follow-up on remaining healthcare maintenance items at our next encounter Health Maintenance Topic Date Due ??? Asthma Action Plan Never done ??? Social Determinants Of Health (SDOH) Never done ??? Lung Function Test (Spirometry) Never done ??? Copd Action Plan Never done ??? Lipid Profile Screening (Cholesterol) Never done ??? Advance Directive Never done ??? Preventive Care Visit Never done ??? Cervical Cancer Screening Never done ??? Breast Cancer Screening Never done ??? Colorectal Cancer Screening Never done ??? Shingles Immunization (2 of 2) 10/29/2019 ??? COVID-19 Vaccine (4 - Booster for Pfizer series) 05/25/2022 ??? Behavioral Health Screen 11/03/2022 ??? Pneumococcal Immunization (4 of 4 - PPSV23) 2025 ??? Tetanus (Adult) Immunization 03/17/2029 ??? HIV Screening Completed ??? Hepatitis C Screen Completed ??? Influenza Immunization (Adult) Completed ??? Pertussis (Adult) Immunization Discontinued F/u: Return in about 1 month (around 12/26/2021). For insomnia and chronic pain I spent a total of 40 minutes with this patient today face to face, in chart review and in documentation and 35 minutes of that time was spent on education and counseling for chronic pain syndrome, insomnia, health maintenance. Some of this note was transcribed with [employer]o Safety[employer] software. While it was proofread, it may still contain unnoticed grammatical or word errors due to incorrect transcribing. Emigdio Veronica MD 11/26/2021 5:39 documented in this encounter Plan of Treatment Upcoming Encounters Date Type Department Care Team (Late st Contact Info) Description 01/04/2025 13:00 EST Office Visit [facility] Ophthalmology - [address] [phone] Gagandeep Rome MD [address] [place] [address], [facility] [address] [place] [phone] 02/11/2025 13:30 EDT Telemedicine [facility] Hematology & Oncology [address] [address] Dana Padilla MD [address] [place] [address] 2 [place] [address] documented as of this encounter Visit Diagnoses Diagnosis Chronic pain syndrome- Primary Insomnia, unspecified type Healthcare maintenance Routine general medical examination at a health care facility documented in this encounter Discontinued Medications Medication Sig Discontinue Reason Start Date End Da te traZODone (DESYREL) 100 mg tablet TAKE 2 AND 1/2 TABS AT BEDTIME. Alternate therapy 11/18/2021 11/25/2021 ondansetron (ZOFRAN-ODT) 4 mg disintegrating tablet Take 1 Tablet by mouth every 4 to 6 hours as needed for Nausea. Reorder 10/01/2021 11/25/2021 ALPRAZolam (XANAX) 0.25 mg tablet Take 1 at bedtime for sleep. If 1 does not cause excessive sedation or dizziness then you can take 2 at bedtime. Therapy completed 11/11/2021 11/26/2021 documented as of this encounter Care Teams Rx Specialist Relationship Specialty Start Date End Date Emigdio Veronica MD [address] [place] [phone] PCP - General Internal Medicine - Primary Care 05/22/20 02/21/24 Starr Paige MD [address] [place] [phone] Hematology 10/08/21 06/09/22 documented as of this encounter
--- OUTSIDE RECORDS SUMMARY | 2024-11-22 17:09 | XMS_ITS | Encounter Summary ---
Author Organization [facility] Address [address] [place] [address] Care Team Providers Care Metal Fabricator Helper Name Role Phone Emigdio Veronica MD Primary Care Provider + Starr Paige MD Unavailable Dana Padilla MD Unavailable Izabella Snowden [facility] Unavailable [phone] None, Provider Primary Care Provider UnavailGabriel Dacosta Primary Care Provider Mirna Guerrero Primary Care Provider + Reason for Visit * Reason Comments Other Encounter Details Date Type Department Care Team (Late st Contact Info) Description 11/16/2021 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 75 Tablet 11/18/2021 11/25/2021 documented in this encounter Miscellaneous Notes * Telephone Encounter - Cris Copeland - 11/17/2021 1441 EST Requested Prescriptions Pending Prescriptions Disp Refills ??? traZODone (DESYREL) 100 mg tablet [Pharmacy Med Name: TRAZODONE 100 MG TABLET] 75 Tablet 0 Sig: TAKE 2 AND 1/2 TABS AT BEDTIME. [facility]/pharmacy #[id number] - [place], [place] - [address] [place] [address] Confirmed Pharmacy? [facility] Request Patient out of medication? Unknown Last Refill Date: 10.26.21 Refills left? (explain exceptions requiring early refill) No Recent Visits Date Type Provider Dept 11/11/21 Office Visit Scottie Campuzano PA-C [place] [facility] 10/20/21 Office Visit Emigdio Veronica MD [place] [facility] 10/08/21 Office Visit Emigdio Veronica MD [place] [facility] 09/18/21 Office Visit Scottie Campuzano PA-C [place] [facility] 07/22/21 Office Visit Scottie Campuzano PA-C [place] [facility] 05/14/21 Office Visit Emigdio Veronica MD [place] [facility] 04/29/21 Office Visit Emigdio Veronica MD [place] [facility] 04/16/21 Office Visit Emigdio Veronica MD [facility] 04/10/21 Office Visit Emigdio Veronica MD [place] [facility] 03/06/21 Office Visit Emigdio Veronica MD [facility] Showing recent visits within past 540 days with a meds authorizing provider and meeting all other requirements Future Appointments Date Type Provider Dept 11/25/21 Appointment Emigdio Veronica MD [place] [facility] 12/24/21 Appointment Emigdio Veronica MD [facility] Showing future appointments within next 150 days with a meds authorizing provider and meeting all other requirements Future appointment: Already Scheduled Cris Copeland 11/17/2021 14:42 documented in this encounter Plan of Treatment Upcoming Encounters Date Type Department Care Team (Late st Contact Info) Description 01/04/2025 13:00 EST Office Visit [facility] Op[facility] - [address] [phone] Gagandeep Rome MD [address] [place] [address] [address] [place] [phone] 02/11/2025 13:30 EDT Telemedicine [facility] Hematology & Oncology [address] [phone] Dana Padilla MD [address] [place] [address], [facility] [address] [place] [address] documented as of this encounter Visit Diagnoses Not on filedocumented in this encounter Discontinued Medications Medication Sig Discontinue Reason Start Date End Da te traZODone (DESYREL) 100 mg tablet Take 2 and 1/2 tabs at bedtime. 10/26/2021 11/18/2021 documented as of this encounter Additional Health [...] documented as of this encounter Care Teams Metal Fabricator Helper Relationship Specialty Start Date End Date Emigdio Veronica MD [address] [place] [phone] PCP - General Internal Medicine - Primary Care 05/22/20 02/21/24 None, Provider PCP - General 02/24/24 03/18/24 Gabriel Gandara PA PCP - General 03/19/24 09/11/24 Mirna Guerrero PA [address] [place] [id number] PCP - General 09/12/24 Starr Paige MD [address] [facility] [address] [place] [phone] Hematology 10/08/21 06/09/22 Dana Padilla MD [address] [facility], [facility], Level [address] [place] [address] Hematology 01/13/22 06/09/22 Izabella Snowden, [facility] 1 [facility], [address]rd [place] [address] Electrical Mechanic 02/21/23 05/03/24 documented as of this encounter
--- OUTSIDE RECORDS SUMMARY | 2024-11-22 17:09 | XMS_ITS | Encounter Summary ---
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) INHALE 2 PUFFS DIRECTED DAILY. 10.2 Each 1 11/09/2021 2 documented in this encounter Miscellaneous Notes * Telephone Encounter - Teresa Garay - 11/06/2021 1109 EST Requested Prescriptions Pending Prescriptions Disp Refills ??? SYMBICORT 160-4.5 mcg/actuation HFA aerosol inhaler inhaler [Pharmacy Med Name: SYMBICORT 160-4.5 MCG INHALER] 10.2 Each 1 Sig: INHALE 2 PUFFS DIRECTED DAILY. [facility] Pharm[facility] -[place], [place] Confirmed Pharmacy? Yes Patient out of medication? Unknown Last Refill Date: 07.08.2021 Refills left? (explain exceptions requiring early refill) No Recent Visits Date Type Provider Dept 10/20/21 Office Visit Emigdio Veronica MD [place] [facility] 10/08/21 Office Visit Emigdio Veronica MD [facility] 09/18/21 Office Visit Scottie Campuzano PA-C [place] [facility] 07/22/21 Office Visit Scottie Campuzano PA-C [facility] 05/14/21 Office Visit Emigdio Veronica MD [place] 04/29/21 Office Visit Emigdio Veronica MD [place] 04/16/21 Office Visit Emigdio Veronica MD [facility] 04/10/21 Office Visit Emigdio Veronica MD [facility] 03/06/21 Office Visit Emigdio Veronica MD [place] 01/27/21 Office Visit Dom Mackay MD [facility] Showing recent visits within past 540 days with a meds authorizing provider and meeting all other requirements Future Appointments Date Type Provider Dept 12/24/21 Appointment Emigdio Veronica MD [facility] [facility] Showing future appointments within next 150 days with a meds authorizing provider and meeting all other requirements Future appointment: Already Scheduled Teresa Garay 11/06/2021 11:19 documented in this encounter Plan of Treatment Upcoming Encounters Date Type Department Care Team (Late st Contact Info) Description 01/04/2025 13:00 EST Office Visit [facility] Ophthalmology - [address] [phone] Gagandeep Rome MD [address] [place] [address], [facility] 5 [place] [phone] 02/11/2025 13:30 EDT Telemedicine [facility] Hematology & Oncology [address] [phone] Dana Padilla MD [address] [place] [address], [facility] 2 [place] [phone] documented as of this encounter Visit Diagnoses Diagnosis COPD with asthma ([facility])- Primary Chronic obstructive asthma, unspecified documented in this encounter Discontinued Medications Medication Sig Discontinue Reason Start Date End Da te SYMBICORT 160-4.5 mcg/actuation HFA aerosol inhaler inhalerIndications:COPD with asthma ([facility]) Inhale 2 Puffs as directed daily. 07/08/2021 11/09/2021 documented as of this encounter Care Teams Animal Care Attendant Relationship Specialty Start Date End Date Emigdio Veronica MD [address] [place] [phone] PCP - General Internal Medicine - Primary Care 05/22/20 02/21/24 Starr Paige MD [address] [facility] [address] [place] [phone] Hematology 10/08/21 06/09/22 documented as of this encounter
--- OUTSIDE RECORDS SUMMARY | 2024-11-22 17:09 | XMS_ITS | Encounter Summary ---
Author Organization [facility] Address [address] [place] [address] Care Team Providers Care Redevelopment Specialist Name Role Phone Emigdio Veronica MD Primary Care Provider + Starr Paige MD Unavailable [phone] Reason for Visit * Reason Comments GI Bleeding Pt BIBEMS for tarry stools that started last night. Pt was recently discharged after a splenic embolization and endorses blood in her urine as well. Pt has a firm and tender abd, endorses N/V/D. VSS. Encounter Details Date Type Department Care Team (Late st Contact Info) Description 11/03/2021 11:11 EST - 11/04/2021 16:20 EST Emergency [facility] General Medicine Unit [address] [place], [place] [id number] Laurent Marmolejo, 111 [facility], Level [address] [place] [address] Teresa Bañuelos DO [address] [id number] Bull Augustine MD [address] [phone] GI bleed (Primary Dx); Gastrointestinal hemorrhage with melena; Generalized abdominal pain; Chronic pain syndrome; Other cirrhosis of liver (HCC) (HCC-CMS); Peptic ulcer disease with hemorrhage; Portal vein thrombosis Discharge Disposition: Home or Self Care Social History Tobacco Use Types Packs/Day Years Used Date Smoking Tobacco: Former Cigarettes 0.3 35 0 08/20/1981 - 08/20/2016 Smokeless Tobacco: Never Tobacco Cessation:Counseling Given: No Alcohol Use Standard Drinks/Week Comments No 0 [...] Industry Job Start Date Job 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 Not on file Not on file Not o n file documented as of this encounter Last Filed Vital Signs Vital Sign Reading Time Taken Comments Blood Pressure 106/52 11/04/2021 1331 EST Pulse 94 11/04/2021 1331 EST Temperature 37 ??C (98.6 ??F) 11/04/2021 1331 EST Respiratory Rate 18 11/04/2021 1331 EST Oxygen Saturation 98% 11/04/2021 1331 EST Inhaled Oxygen Concentration - - Weight 93.9 kg (207 lb) 11/04/2021 1042 EST Height 160 cm (5' 3) 11/04/2021 1042 EST Body Mass Index 36.67 11/04/2021 1042 EST documented in this encounter [...] Santiago RN documented in this encounter Discharge Summaries * Teresa Bañuelos, DO - 11/04/2021 1354 EST Images from the original note were not included. HOSPITAL MEDICINE DISCHARGE SUMMARY Primary Care Provider: Emigdio Veronica Attending Physician: No att. providers found Admit Date: 11/03/21 Discharge Date: 11/04/21 Disposition (location): home/self care Condition at Discharge: Stable Reason for Admission (chief complaint): melena Principal/Final Diagnosis: Abdominal pain Additional Problems Managed in the Hospital: Active Hospital Problems Diagnosis Date Noted ??? *Abdominal pain 11/03/2021 ??? Portal vein thrombosis 04/23/2021 -04/23/21: Nonocclusive [...] venous congestion as asource of her pain. ??? COPD (chronic obstructive pulmonary disease) (HCC-CMS) (HCC) 01/21/2021 ??? HUEY (obstructive sleep apnea) 04/26/2020 ??? Other cirrhosis of liver (HCC) 09/30/2017 -NAFLD related cirrhosis with history of decompensation, chronic portal htn, hepatic encephalopathy, small esophageal varices on EGD in 2019, thrombocytopenia/hypersplenism, portal gastropathy -s/p partial splenic embolization (09/28/21) -portal vein thrombosis -Hep C Past provider: Dr. Ijeoma Smith, GI Department in [facility] for long-standing decompensated liver cirrhosis ??? Obesity, [...] NSAID due to renal insufficiency history. ??? Peptic ulcer disease with hemorrhage 10/26/2021 EGD March 2021:esophagitis and pyloric channel ulcer. Oct 08, 2021: 9-day admission w/ 3 separate EGDs and several units RBC tx. Large posterior duodenalulcer and pyloric ulcer extending into duodenal bulb +mild portal gastropathy as likely sources. RxBID Protonix for 3 months then daily. Resolved Hospital Problems Diagnosis Date Noted Date Resolved ??? GI bleed 11/03/2021 11/04/2021 Transition of care: [facility] Transition of Care report automatically routed to PCP office on discharge.Additional handoff communication performed via: Phone or Verbal Clinical Issues Needing Follow-up 1. Pertinent medication changes: Abdominal pain with concern for GI bleed in the setting of known PUD and portal vein thrombosis -Discussed with hematology that given that there is no evidence of melena in the hospital and her hemoglobin is stable, to continue enoxaparin 2. Recommended follow-up tests/procedures needed: -CBC in 5 to 7 days 3. Anticoagulation on discharge: 40 mg enoxaparin daily as previously prescribed by hematology, unchanged Recent Labs 11/04/21 0647 INR 1.2* 4. Changes to goals care at time of discharge (if applicable): none Hospital Course: 61-year-old female with end-stage liver disease (ascites on diuretics) with known esophageal varices (2018), thrombocytopenia/hypersplenism s/p partial splenic embolization (09/28/2021), peptic ulcer disease with ulcer visualized on 10/11, portal vein thrombosis on prophylactic enoxaparin followed by hematology, COPD, HUEY not on CPAP, hypothyroidism, depression who presented with concern for abdominal pain and melena approximately a week after restarting her prophylactic anticoagulation per hematology. On arrival she was hemodynamically stable and hemoglobin was stable from her discharge from the hospital approximately 1 month ago. Patient's abdominal pain was described quite similarly to her known, now, chronic abdominal pain from peptic ulcer disease and her splenic embolization. Her pain probably resolved. She was evaluated overnight with her home medications - PPI, sucralfate, 2 doses of hydromorphone - and had no further clinical evidence of bleeding and her hemoglobin remained stable over 24 hours. Given that her symptoms largely improved, she remained hemodynamically stable, she did not have further evidence of bleeding she was deemed stable for discharge home with continued follow-up from PCPand hematology. Her case was discussed with hematology fellow prior to discharge who recommended restarting the prophylactic Lovenox given that the patient did not have signs of active bleeding. This was discussed with the patient in addition to clear return precautions related to possible ongoing GI bleed. Relevant Imaging/Procedures Performed: CT head 11/03/2021: No acute pathology CT angio abdomen/pelvis 11/03/2021: TTE 11/04/2021: EF 60-65% with mild concentric hypertrophy of the left ventricle Right ventricular cavity with an upper limits of normal, right systolic function normal Left atrium moderately dilated Results Pending at Discharge: Test results still pending from this admission None Upcoming Appointments Dec 07, 2021 13:00 Follow Up Visit with Dana Padilla MD [facility] - [facility] ([facility]) [address] [facility] [id number] Dec 21, 2021 15:40 Liver Office Visit with Micheal Moseley MD [facility] (--) [address] [facility] [address] Dec 24, 2021 8:15 Office Visit Medium with Emigdio Veronica MD [facility] [place] ([facility]) 2 [facility] [address] Jan 06, 2022 13:20 Pre Admission Testing Call with [facility] PAT CALL ROOM 5 [facility] Pre-Surgical Testing (--) [address] [facility] [address] Jan 13, 2022 8:00 Upper Endoscopy with Micheal Moseley MD, Anesthesiologist [facility] End[facility] - [facility] ([facility] All Departments) [address] [facility] [address] ANNA MARIE SUNG MD 11/04/2021 13:54 Attending Attestation I saw and evaluated the patient on the day of discharge. I discussed the patient with the resident (Dr. Sung) and agree with the hospital summary as above. My edits of the note appear in blue text. 61 year old female with PMH of chronic decompensated QUIROZ cirrhosis (complicated by known esophageal varices, portal HTN and episodes of hepatic encephalopathy), thrombocytopenia/hypersplenism (s/p partial splenic embolization September 2021), HUEY, COPD, recent UGIB 2/2 PUD (10/11, s/p clipping) andportal vein thrombosis (on prophylactic enoxaparin and followed by THP) admitted on 11/03 with several days of intermittent melena approximately 1 week after starting prophylactic lovenox. On arrival, patient was non-toxic appearing, HD stable without vital sign abnormality, and stable Hgb. She wasadmitted for observation, had no witnessed episodes of bleeding, with improvement in her Hgb the following morning to 9.6. She was continued on [employer] medications for her abdominal pain, and, which remained stable. She underwent TTE for chronic LE swelling, which showed no acute findings. Her case wasdiscussed with hematology fellow, who recommended starting lovenox 40 mg subQ. We had careful discussion of bleeding risks vs benefits of this medication, and contingency plan to discuss with PCP reed-present to ER if further episodes of melena or bleeding. She will have CBC within 1 week of discharge and follow up with PCP next week. Patient was on board with plan. She remains high risk for re-admission for recurrent GI bleeding or acute decompensation related to liver disease given recent history. I spent 30 minutes in coordination of patient care and discharge. Teresa Bañuelos DO [facility] Hospitalist Date of Service: 11/04/21 20:04 documented in this encounter Medications at Time of Discharge OXYGEN-AIR DELIVERY SYSTEMS MISCIndications:2 L @ night via nC 2 L by misc (non-drug; combo route) route at bedtime. albuterol 90 mcg/actuation inhaler Inhale 1-2 Puffs as directed every 4 hours as needed for Wheezing. 1 Inhaler 04/13/2021 3 enoxaparin (LOVENOX) 40 mg/0.4 mL injection Inject 40 mg into the skin daily. 12 mL 2 10/26/2021 1 furosemide (LASIX) 20 mg tablet Take 1 every morning for fluid in legs; if swelling is worse than usual then take 2 every morning. Max daily dose is 40 mg per day. 180 Tablet 1 09/18/2021 2 HYDROmorphone (DILAUDID) 2 mg tablet Take 1 Tablet by mouth every 6 hours as needed for up to 28 days for Pain. Daily Max: 8 mg 84 Tablet 10/26/2021 2 levothyroxine (SYNTHROID) 25 mcg tablet Take 1 Tab by mouth daily. Unknown dose 90 Tab 3 11/03/2020 1 mupirocin (BACTROBAN) 2 % ointment Apply 3 times a day for 1 week for painful sore on lower right leg. 30 g 09/18/2021 2 ondansetron (ZOFRAN-ODT) 4 mg disintegrating tablet Take 1 Tablet by mouth every 4 to 6 hours as needed for Nausea. 21 Tablet 10/01/2021 2 pantoprazole (PROTONIX) 40 mg tablet Take 1 Tablet by mouth 2 times daily. 30 Tablet 3 10/17/2021 2 sertraline (ZOLOFT) 50 mg tablet TAKE 1 TABLET BY MOUTH EVERY DAY 90 Tablet 1 10/06/2021 2 spironolactone (ALDACTONE) 50 mg tablet TAKE 1 TABLET BY MOUTH EVERY DAY 90 Tablet 1 09/09/2021 2 sucralfate (CARAFATE) 100 mg/mL suspension Take 10 mL by mouth 4 times daily (before meals and at bedtime). 420 mL 2 10/17/2021 2 SYMBICORT 160-4.5 mcg/actuation HFA aerosol inhaler inhalerIndications:C OPD with asthma ([facility]) Inhale 2 Puffs as directed daily. 1 Inhaler 1 07/08/2021 1 traZODone (DESYREL) 100 mg tablet Take 2 and 1/2 tabs at bedtime. 75 Tablet 10/26/2021 1 documented as of this encounter Discharge Disposition Disposition Code Departure Means Destination Home or Self Penitentiary documented in this encounter Progress Notes * Tatyana Ashley RN - 11/04/2021 0401 EST Data: Pt admitted with suspected GI bleed. Pt alert and oriented x3, able to make needs known. VSS on room air. Stand by assist to the bathroom, continent x2. +2 pitting edema bilateral lower extremities with redness. No bowel movements reported to nurse. Pt complains of 8/10 abdominal pain. Action: Assumed care at 1900. Medications administered per JAN. Hourly rounds and safety checks performed. called to bedside due to suspicious patient behavior. Pt unable to hold her head up, appearing super drowsy despite medications given. Polypharm UA ordered, pending. Care clustered to promote rest. Response: Pt resting intermittently. No s/s of acute distress. Bed in lowest, locked, with call hines within reach. Needs met per patient request. POC continued. TATYANA ASHLEY RN 11/04/2021 4:01 * Daniel Gotti, RT - 11/03/2021 1507 EST Respiratory Consult/Progress Note Indications for Respiratory therapy: Hx of CO{D Data Vitals: Heart Rate: 87 BPM, Resp: 17, SpO2: 97 % FIO2/O2 Device: , , O2 Device: None, RT Orders: Protocol Scoring: Bronchodilator/Inhalation Therapy Frequency [...] Clinical Indications: No clinical indications Breath Sounds: Diminished / crackles Surgery: No X-Ray / Atelectasis: No O2 Requirements: O2 at baseline Mobility Status: Mobile / at baseline Total: 2 Frequency Based On Total Score: 0-3 = PRN 4-6 = QID and PRN 7-9 = Q4H and PRN 10-12 = Q2H and PRN Action/Events Respiratory events; PT is former smoker (20-pk-yr) who reports having quit two months ago. BS are CTA with dry cough. PT Wears 2 L/M due HOS but does no tuse CPAP/BiPAP. PT uses controller MDI at home and prn Ventolin or Albuterol nebs. Nursing to admin any MDI's,. Response/Results Weaning and Toleration of treatments; RT ANAMARIA 11/03/21 documented in this encounter H&P Notes * Teresa Bañuelos, DO - 11/03/2021 4435 EST Family Medicine Admission History & Physical Service Date: 11/03/2021 Admit Date: 11/03/21 Primary Care Provider: Emigdio Veronica Chief Complaint: Abdominal pain HPI Phyliss E Boothe??is a 61 y.o.??female??with a PMHx of decompensated QUIROZ cirrhosis (portal htn, hepatic encephalopathy, small esophageal varices on EGD in 2019) w/ associated thrombocytopenia/hypersplenism??s/p partial splenic embolization (09/28/21), duodenal ulcer, portal vein thrombosis, Hep C, asthma, COPD (no home O2), HUEY not on CPAP, hypothyroidism, & anxiety/depression??who presented to the ED for five day history of abdominal pain with report of one episode of melena and multiple dark tarry stools. Patient last admitted 10/08/2021-10/17/2021 for GI bleeding and discharge with diagnosis of abdominal pain due to multifactorial etiology including recent splenic embolization, duodenal ulcer and possibly related to known portal vein thrombus, concern at prior admission for narcotic seeking behavior. Patient presenting today with reported 5-day history of increasing abdominal pain in the setting ofchronic abdominal pain since her last discharge. She reports the pain is primarily located in a bandlike fashion across her epigastric region. Patient reporting several darker stickier stools in the past several days as well as one episode of coffee-ground emesis yesterday. Pain is described as cramping in nature. Denies recent NSAID use. Patient also reporting 1 episode of fall in the middle of the night approximately 2 days prior whenshe felt lightheaded and fell backwards. She does not recall hitting her head does endorse that if she had to get up right now she would likely feel lightheaded. Patient also endorsing chills, bilateral leg pain and swelling, tightness in her abdomen due to increased fluid, shortness of breath with activity, orthopnea, and increasing fatigue with daily activities. She denies cough, congestion, fever, headache, throat pain, chest pain, dysuria, change in urinary frequency. She reports she takes all of her medications as directed including the new medication of Lovenox that was recently prescribed and hematology oncology visit with Dr. Dana Padilla on 10/26/2021. Patient denies any alcohol use, quit smoking 1 year prior, and denies any recreational drug use. She rents a room in a building with several roommates who have chronic medical conditions that she helps care for. Review of Systems A complete 10 point ROS was performed and pertinent positive and negative findings listed in HPI, otherwise negative. Past Medical History: Diagnosis Date ??? Anemia ??? Anxiety ??? Asthma 12/10/2020 currently not taking - mild persistent - see dr. Veronica 11/20/2021 ??? Bursitis right shoulder ??? C. difficile colitis 07/25/2015 Hospitalized after kidney stone removal ??? Cirrhosis of liver ([facility]) ([facility]) ??? Community acquired pneumonia january 2021 ??? COPD exacerbation ([facility]) ([facility]) 04/26/2020 ??? Depression ??? Drug-seeking behavior Per Dr Amelia Tijerina and notes from [facility] patient misconstrued information to several providers about multiple concurrent opiate prescriptions ??? Environmental allergies ??? Exercise involving walking takes a walk daily for 20 minutes ??? GERD (gastroesophageal reflux disease) 12/10/2020 does not wake pt at night ??? Hemorrhagic disorder (HCC-CMS) ([facility]) ??? History of kidney stones ??? Hypersplenism syndrome ??? Hypothyroidism ??? Joint replaced 199912/10/2020 nya knees ??? QUIROZ (nonalcoholic steatohepatitis) with cirrhosis ??? Pancytopenia (HCC) ??? Rheumatoid arthritis ??? Sleep apnea uses simple O2 at night - 2. didn't require CPAP ??? Thrombocytopenia (HCC-CMS) ([facility]) 12/10/2020 - see 11/20/2020 Dr. Veronica H&P, (managed by Starr Paige MD) ??? Thyroid disease Past Surgical History: Procedure Laterality Date ??? APPENDECTOMY ??? BONE MARROW BIOPSY ??? CHOLECYSTECTOMY ??? CYSTOSCOPY 12/03/2020 ??? GASTRIC FUNDOPLICATION 198912/02/2020 - confirmed by pt ??? HERNIA REPAIR ??? HYSTERECTOMY ??? JOINT REPLACEMENT Bilateral with multiple revisions of both knees ??? KNEE SURGERY Bilateral ??? TONSILLECTOMY ??? WRIST SURGERY Right after fracture Social History Tobacco Use ??? Smoking status: Former Smoker Packs/day: 0.25 Years: 35.00 Pack years: 8.75 Types: Cigarettes Quit date: 08/20/2016 Years since quittin.2 ??? Smokeless tobacco: Never Used Substance Use Topics ??? Alcohol use: No Family History Problem Relation Age of Onset ??? Diabetes Mother ??? *Other(comment) Mother 73 in MVA accident while 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 ambulance crew ??? Coronary Artery Disease Father ??? Thrombosis Father took warfarin - ?DVT ??? Diabetes Brother ??? No Known Brother ??? Cancer Maternal Grandmother skin cancer invaded skull ??? No Known Half-Brother ??? No Known Half-Brother ??? No Known Half-Sister ??? No Known Half-Sister ??? No Known Daughter ??? No Known Daughter ??? No Known Son Medications Prior to Admission Medication Sig ??? albuterol 90 mcg/actuation inhaler Inhale 1-2 Puffs as directed every 4 hours as needed for Wheezing. ??? enoxaparin (LOVENOX) 40 mg/0.4 mL injection Inject 40 mg into the skin daily. ??? furosemide (LASIX) 20 mg tablet Take 1 every morning for fluid in legs; if swelling is worse than usual then take 2 every morning. Max daily dose is 40 mg per day. ??? HYDROmorphone (DILAUDID) 2 mg tablet Take 1 Tablet by mouth every 6 hours as needed for up to 28 days for Pain. Daily Max: 8 mg ??? levothyroxine (SYNTHROID) 25 mcg tablet Take 1 Tab by mouth daily. Unknown dose (Patient takingdifferently: Take 25 mcg by mouth daily before breakfast. ) ??? mupirocin (BACTROBAN) 2 % ointment Apply 3 times a day for 1 week for painful sore on lower right leg. ??? ondansetron (ZOFRAN-ODT) 4 mg disintegrating tablet Take 1 Tablet by mouth every 4 to 6 hours as needed for Nausea. ??? OXYGEN-AIR DELIVERY SYSTEMS MISC 2 L by misc (non-drug; combo route) route at bedtime. ??? pantoprazole (PROTONIX) 40 mg tablet Take 1 Tablet by mouth 2 times daily. ??? sertraline (ZOLOFT) 50 mg tablet TAKE 1 TABLET BY MOUTH EVERY DAY ??? spironolactone (ALDACTONE) 50 mg tablet TAKE 1 TABLET BY MOUTH EVERY DAY ??? sucralfate (CARAFATE) 100 mg/mL suspension Take 10 mL by mouth 4 times daily (before meals and at bedtime). ??? SYMBICORT 160-4.5 mcg/actuation HFA aerosol inhaler inhaler Inhale 2 Puffs as directed daily. ??? traZODone (DESYREL) 100 mg tablet Take 2 and 1/2 tabs at bedtime. Allergies Allergen Reactions ??? Metoclopramide [...] Reglan [Metoclopramide Hcl] Rash Objective Vitals Temp: [36.8 ??C (98.2 ??F)-37.6 ??C (99.7 ??F)] , Heart Rate: [87 BPM] , Pulse: [89-93] , Resp: [13-18] , BP: (112-113)/(52-56) , SpO2: [97 %-99 %] , Numeric Pain Level (Scale 1-10): 8 Weight: Weight : 93.9 kg (207 lb 1.6 oz) Body mass index is 36.69 kg/m??. Physical Exam General: Somnolent but arousable, Comfortable, cooperative and in no apparent distress HEENT: PERRLA, EOMI, no conjunctival icterus, oral mucosa is moist without apparent lesions CARDIOVASCULAR: Regular rate and rhythm, S1S2, no murmurs, rubs or gallops LUNGS: No accessory muscle use on respiration, expiratory wheezes in all lung godwin B/L. ABDOMEN: Tenderness in epigastric and RUQ/LUQ. Soft, Obese and slightly distended. BS noted. EXTREMITIES: 1+ pitting edema B/L with tenderness to palpation due to swelling SKIN: Dry flaking skin in calfs and ankles B/L, No rash or erythema noted on exposed skin NEURO: Alert and oriented x3 PSYCH: Normal mood, congruent affect. Answers questions appropriately. Labs I have personally reviewed Recent Labs 11/03/21 1127 11/03/21 1127 11/03/21 1339 WBC 5.72 < > 5.36 RBC 3.29* < > 3.30* HGB 9.1* < > 9.1* HCT 28.5* < > 28.3* MCV 87 < > 86 MCH 27.7 < > 27.6 MCHC 31.9* < > 32.2 PLT 153 < > 146 NEUTROABS 4.91 -- -- < > = values in this interval not displayed. Recent Labs 11/03/21 1127 NA 130* K 4.2 CL 95* CO2 29 BUN 13 CREATININE 0.94 CALCIUM 8.4* LABALBU 3.3* Recent Labs 11/03/21 1127 PROTIME 14.6* INR 1.3* PTT 31 Recent Labs 11/03/21 1127 TBIL 0.9 ALKPHOS 114 AST 34 ALT 13 LIPASE 39 Imaging EXAM: CT HEAD WO CONTRAST HISTORY: Head trauma, mod-severe TECHNIQUE: CT head without contrast. Structured report code: NR.CT01 COMPARISON: Multiple CT head exams, most recently 06/29/2021. ?? IMPRESSION No evidence of recent intracranial hemorrhage, acute infarction, or mass. ?? CT ANGIO ABDOMEN PELVIS Signs and Symptoms/Comments: GI bleed Technique: ?? Comparison: CTAs of the abdomen and pelvis 12/08/2020 and 07/16/2021. ?? IMPRESSION 1. No evidence of active gastrointestinal bleeding. 2. Redemonstration of extensive nonocclusive portal venous thrombus with some thrombus progression within the proximal right portal vein. The splenic vein decompresses via a shunt along the anterior left abdominal wall. 3. Status post partial distal splenic embolization with unchanged partial infarction of the spleen. 4. Resolution of previously seen ascites. 5. Likely pulmonary edema. 6. Minimal atherosclerosis without severe stenosis or occlusion. 7. Degenerative disc disease. Assessment 61 y.o.??female??with a PMHx of decompensated QUIROZ cirrhosis (portal htn, hepatic encephalopathy, small esophageal varices on EGD in 2019) w/ associated thrombocytopenia/hypersplenism??s/p partial splenic embolization (09/28/21), duodenal ulcer, portal vein thrombosis, Hep C, asthma, COPD (no home O2), HUEY not on CPAP, hypothyroidism, & anxiety/depression??who presented to the ED for five day history of abdominal pain. Patient was evaluated in the ED and given 1 L LR IV 40 mg IV Protonix 0.5 mg IV Dilaudid and 1 g IVceftriaxone. CBC and CMP in the ED within normal limits and repeat CBC showing stable hemoglobin of9.1. Lactic acid, lipase and creatinine within normal limits. Differential for abdominal pain remains broad but primary suspicion for recurrence of duodenal ulcer bleed. Recent start of Lovenox therapy in outpatient setting for splenic thrombus with report of melena and coffee ground emesis per patient. Component of chronic abdominal pain due to splenic emboli zation and portal vein thrombosis versus narcotic seeking behavior. CTA of abdomen without evidenceof upper GI bleed. Hypervolemic status most suspicious for heart failure given pulmonary edema present in bilateral lung bases. CTA of abdomen at admit indicating resolution of previous ascites. No Hx of heart failure. Plan Abdominal pain, melena, likely UGIB Given patient history and report of coffee-ground emesis and melena concern for recurrence of upperGI bleed. Patient recently started on Lovenox in the outpatient setting. Other suspicion for acute on chronic pain due to splenic embolization portal vein thrombosis, with possibility for narcotic seeking behavior due to history at prior admission. HD stable, Hgb stable 9.1 without witnessed bleeding since presentation -Daily CBC/CMP/INR -Standard transfusion protocol for hemoglobin less than 8 -S/P type/cross in ED -Patient has peripheral IV x3 for access -D/C [employer] Lovenox, holding anticoagulation -1 g ceftriaxone daily for SBP prophylaxis -[employer] Sucralfate 1g QID -[employer] Dilaudid for pain control 2 mg q6hr PRN -[employer] Zofran PRN for nausea Hypervolemia Pulmonary edema noted on CT of abdomen at admit with resolution of prior ascites. Suspicious for heart failure. Last echo 04/2020 with EF of 60 to 65% and normal ventricular function. -TTE -Increased [employer] Lasix dose from 20 mg to 40 mg daily -Increase [employer] spironolactone dose from 50 mg to 100 mg daily -strict ins and outs -Sodium restricted diet -Replete electrolytes as needed Portal vein thrombus Patiently recently seen in outpatient setting on 10/[address] Dana Padilla and started on Lovenox which may have precipitated return of upper GI bleed that is present. Plan for management per hematology recommendations and plan for hematology consult. -Holding anticoagulation currently -Heme consult tomorrow COPD/HUEY Primary suspicion suspicion that shortness of breath due to volume overload. -[employer] Symbicort -[employer] albuterol -[employer] 2 L nasal cannula at night for goal saturation greater than 88% Hypothyroid -[employer] Levothyroxine Anxiety/Depression [employer] Zoloft 50 mg daily [employer] Trazodone 250 mg PRN at night Diet -Sodium restriction 2g daily VTE Prophylaxis Seqential Compression Device Code: Full Code Discharge Plan Home or self care Consults HemeOnc Discussed with Dr. Teresa LONG MD 11/03/2021 16:59 ATTENDING ATTESTATION: Date of service: 11/03/2021 I have interviewed and examined the patient. I personally reviewed laboratories studies, radiographic images, ECG, and prior records. I discussed the case with: Dr. Long (family medicine housestaff team). I agree with and edited (in blue) the findings and plan of care as documented in the note above. It is my expectation that this patient's acute medical needs will require inpatient length of stay to span two midnights. Teresa Bañuelos DO Division of Hospital Medicine 11/03/2021 20:14 documented in this encounter ED Notes * Tayler Murphy RN - 11/03/2021 1522 EST Report given to KENN Matos. * Laurent Marmolejo DO - 11/03/2021 1114 EST This patient received an evaluation and medical screening exam for emergent medical conditions at the [facility] on 11/03/2021. This note was created and authored by DANIEL AGUDELO MD working under the supervision of Laurent Marmolejo DO. This documentation is recorded by Vazquez Huffman acting as Scribe under the direction and presence of Laurent Marmolejo DO and DANIEL AGUDELO MD. Laurent Marmolejo DO and DANIEL AGUDELO MD: We personally performed the services recorded by the scribe in our presence. We confirm the scribe's documentation has been reviewed by us to accurately and completely record our work, treatment, procedures, and medical decision making. ED Attending???s Supervisory Statement IJaleel Daniel J, DO, performed a history and exam of this patient and discussed the case with the resident. I have reviewed and edited this note, and the documentation is consistent with my findings, assessment and plan. I fully participated in the medical decision making. IJaleel Daniel J, DO, attest to the limited gemsa-pb-oher ultrasound performed by the EM Resident. I supervised and was present during the brown and critical portions of the procedure. 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 Patient reports abdomen cramping and black/tarry stools since last night. Patientsays her pain was cramping last night when it started but now it is more painful. Patient says she last ate jello last night but she has not eaten anything this morning. Patient does not know if foodmakes the pain worse. Patient notes lower extremity edema and says she is on Lasix and Spironolactone. Patient notes generalized weakness and light headedness the last couple days with possible LOC and a fall 2 nights ago with no known injuries or pain related to this. Patient denies headache or neck pain. After patient was discharged on 10/08/21 she followed up with hematology on 10/26/21 and they decided to resume her Lovenox 40 mg daily with plan to repeat serial CBCs. History was provided by: patient, medical records Patient's pertinent PMH, FH, SH were reviewed PRN ROS ROS A 10-point review of systems was performed. The patient answered negative to all questions with theexceptions of those explicitly detailed as positives in the HPI. Pertinent negatives are also explicitly stated. Physical Exam Vital Signs Temp: 37.6 ??C (99.7 ??F) Temp src: Oral Pulse: 89 Resp: 13 SpO2: 98 % BP: 113/55 BP Device: BP Machine BP Patient Position: Sitting BP Cuff Location: Left arm Nursing notes and vital signs were reviewed. Constitutional: Well appearing in no acute distress HEENT: PEERL, EOMI, clear conjunctivae. Conjunctival pallor Mouth: Dry mucous membranes, without apparent lesions Neck: Full ROM, trachea midline Heart: Extremities warm and well perfused. 2+ radial pulses bilaterally. Regular pulse. Lungs: No tachypnea. No evidence of respiratory distress. No audible stridor or wheezing. Abdomen: Soft ND, tenderness to palpation epigastrium with voluntary guarding, scattered ecchymosisover lower abdomen wall site of Lovenox injection with no palpable hematoma Skin: No overt rashes or lesions on exposed skin. No jaundice. Extremities: Moving spontaneously, warm, radial/DP/PT pulses 2+ b/l. Symmetric b/l 2+ pitting edemato the knees, mildly erythematous, no warmth Neuro: CN grossly intact, normal speech, 5/5 strength in UE/LE b/l. Sensation to light touch wnl inUE/LE b/l. No tremors or rigors. Psych: Appropriate affect. Linear thought process. Procedures Procedures Medical Decision Making / ED Course Tara Boothe is a 61 y.o. 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 Vital signs on arrival notable for normal blood pressure, no tachycardia. On repeat, borderline soft blood pressures 100s over 50s with map low 60s. No tachycardia. Exam as documented above, most notable for an uncomfortable appearing 61-year-old female with tenderness in the epigastrium with voluntary guarding. Due to melena, history of GI bleed and esophageal varices patient was administered Protonix, ceftriaxone on arrival. Dilaudid for pain control. IVF ordered. Bedside FAST exam without evidence of intra-abdominal or pelvic free fluid. Obtained CTA of the abdomen and pelvis to assess foractive extravasation, bowel ischemia, vascular pathology which demonstrated portal venous thrombus but no evidence of acute GI bleed. Given the patient's ongoing pain, melena, known duodenal ulcer, known esophageal varices, currently on Lovenox, she is at high risk for ongoing bleeding. She will require admission for further management. She has had no ongoing evidence of bleeding here, borderlinesoft blood pressures but no acute changes. No tachycardia. Normal lactate. Repeat H&H is stable. She is stable for medicine admission at this time. Differential diagnosis includes but is not limited to: Duodenal ulcer, perforated viscous, portal thrombus, pancreatitis. Also considered AAA but no evidence of this on CTA. The patient was given the following interventions: 11:59. Administered protonix 40 mg IV. 12:15. Administered dilaudid 0.5 mg IV. 12:42. Administered Rocephin 1 g IV. 13:49. Hydrated patient with 1000 mL lactated ringers IV. Laboratory results independently reviewed, significant for: normal lactic acid at 1.2, lipase normal at 39, creatinine normal at 0.94, H&H 9.1/28.3. Imaging obtained was reviewed and independently interpreted: CT head: No evidence of recent intracranial hemorrhage, acute infarction, or mass CTA A/P: 1. No evidence of active gastrointestinal bleeding. 2. Redemonstration of extensive nonocclusive portal venous thrombus with some thrombus progression within the proximal right portal vein. The splenic vein decompresses via a shunt along the anterior left abdominal wall. 3. Status post partial distal splenic embolization with unchanged partial infarction of the spleen. 4. Resolution of previously seen ascites. 5. Likely pulmonary edema. 6. Minimal atherosclerosis without severe stenosis or occlusion. 7. Degenerative disc disease. I performed a limited EFAST [id number] ultrasound. Please see my narrative and impression recorded in imaging results. I performed, reviewed, and independently interpreted the images. Images savedin [employer] and PACS. This study was supervised by a credentialed provider. Please see a ttestation in [employer] 14:00. Discussed case with Medicine admitting team who accepts patient to Medicine. At this time, the patient was hemodynamically stable for admission to Medicine under the care of Dr. Augustine. Disposition decisions were made weighing risks and benefits of hospitalization vs. outpatient treatment, the risk for further decompensation, and the patient???s wishes. Admitted. The patient required admission for further workup or management of their condition Disposition Upon departure from the Emergency Department, the patient's pain seemed to be 1 on a zero to ten scale. Condition at departure from the Emergency Department: Stable Clinical Impression Final diagnoses: GI bleed * Adelaida Gambino - 11/03/2021 1114 EST TCALL: MANOJ BOOTHE 60 REFERRED BY [facility]. RECENT ADMISSION FOR HYPERCOAGULABLE STATE, WITH GI BLEED. GAINED 20 LBS IN FEW WEEKS, BLACK TARRY STOOLS. DIZZINESS. SOB. IS ON LOVENOX. (SMT) documented in this encounter Miscellaneous Notes * Plan of Care - Chele Mathur RN - 11/04/2021 1620 EST Problem: Daily Care Plan Goals Goal: Care Plan Documentation Outcome: Met This Shift Flowsheets (Taken 11/04/2021 1530) Area of Focus: Discharge Plan Goal This Shift: Pt will discharge this shift Nursing Discharge Note D: Patient noted with discharge orders to: home. A: Prescriptions e-scripted. Reviewed discharge instructions and prescriptions with Patient IV d/c'd. Belongings collected and sent home with patient. Pt ambulated to entrance to be picked up by daughter. R: Patient verbalized understanding of discharge instructions and denied further questions. CHELE MATHUR RN 11/04/2021 18:17 documented in this encounter Plan of Treatment Upcoming Encounters Date Type Department Care Team (Late st Contact Info) Description 01/04/2025 13:00 EST Office Visit [facility] Ophthalmology - [address] [phone] Gagandeep Rome MD [address] [place] [address], [facility] [address] [place] [id number] 02/11/2025 13:30 EDT Telemedicine [facility] Hematology & Oncology [address] [phone] Dana Padilla MD [address] [place] [address], [facility] [address] [place] [phone] documented as of this encounter Procedures Procedure Name Priority Date/Time Associated Diagnosis Comments TRANSTHORACIC ECHO (TTE) COMPLETE Routine 11/04/2021 10:35 EST PROTIME Routine 11/04/2021 6:47 EST COMPLETE BLOOD COUNT Routine 11/04/2021 6:47 EST COMPREHENSIVE METABOLIC PANEL (CMP) Routine 11/04/2021 6:47 EST ZZCOVID-19 TEST [facility] PCR Today 11/03/2021 14:14 EST COVID-19 TESTING Routine 11/03/2021 14:1 4 EST COMPLETE BLOOD COUNT STAT 11/03/2021 13:[address] HEAD WO CONTRAST STAT 11/03/2021 1 3:[address] ANGIO ABDOMEN PELVIS STAT 11/03/2021 13:04 EST POCT US ED EXTENDED FOCUSED ABD TRAUMA (EFAST) 11/03/2021 12:22 EST LACTIC ACID STAT 11/03/2021 12:12 EST POCT US ED GUIDANCE PIV 11/03/2021 11:29 EST PTT STAT 11/03/2021 11:27 EST PROTIME STAT 11/03/2021 11:27 EST COMPLETE BLOOD COUNT AND DIFFERENTIAL STAT 11/03/2021 11:27 EST TYPE AND SCREEN STAT 11/03/2021 11:27 EST LIPASE Add-On 11/03/2021 11:27 EST COMPREHENSIVE METABOLIC PANEL (CMP) STAT 11/03/2021 11:27 EST documented in this encounter Results * TRANSTHORACIC ECHO (TTE) COMPLETE W/DOPPLER W/CF NO CONTRAST (11/04/2021 10:35 EST) LA Atrial Length A2C 5.3 cm [facility] LA Atrial Area A4C 25.3 cm2 [facility] LA ID/bsa, A-P 2.2 cm/m2 [facility] LV ID, ED, PLAX 4.6 3.5 - 6.0 cm [facility] LVIDD BY MMODE 4.6 cm [facility] LV ID, ES, PLAX 3.2 2.1 - 4.0 cm [facility] LA ID, A-P, ES 4.3 cm [facility] LV PW thickness, ED, PLAX 1.3 0.6 - 1.1 cm [facility] Aortic root ID 2.9 cm [facility] LV ejection fraction, 1-p A4C 61 % [facility] LVOT mean gradient, S 4 mmHg [facility] AV LVOT peak gradient 7 mmHg [facility] LV e', lateral 0.11 m/s [facility] Mitral deceleration time 278 ms [facility] LV IVRT, DP 74 msec [facility] INT [facility] LVOT area 2.8 cm2 [facility] LVOT peak velocity, S 1.3 m/s [facility] LVOT VTI, S 27.2 cm [facility] PO INT OF CARE Stroke volume (SV), LVOT DP 77 ml [facility] Mitral peak gradient, D 4 mmHg [facility] LVOT mean velocity, S 0.9 m/s [facility] Mitral E-wave peak velocity 1.0 m/s [facility] Mitral A-wave peak velocity 0.9 m/s [facility] LV Systolic Volume Index 15.0 mL/m2 [facility] LV Diastolic Volume Index 41.0 mL/m2 [facility] LA Atrial Length A4C 6.7 cm [facility] LVOT ID, S 1.9 cm [facility] POI NT OF CARE EF 64 % [facility] LA volume, ES, BP 85.0 ml [facility] LA volume/bsa, ES, A4C 42.0 ml/m2 [facility] LA volumes, ES, A4C 83.0 ml [facility] LA volume/bsa, ES, BP 43.0 ml/m2 [facility] LV Systolic Volume 29 mL [facility] LV Diastolic Volume 80 mL [facility] Stroke index (SV/bsa) LVOT DP 39.0 ml/m2 [facility] Interventricular Septum to Posterior Wall Thickness Ratio 0.8 [facility] P OINT OF [facility] IVS thickness, ED, PLAX 1.1 cm [facility] LV e', medial 0.08 m/s [facility] LV e', average 0.09 m/s [facility] Pulmonic valve mean velocity, S 1 cm/s [facility] Ascending aorta ID, a-p 2.7 cm [facility] LA Atrial Area A2C 25.3 cm2 [facility] LA/aortic root ratio 1.48 [facility] LV end diastolic volume 1-p A2C 56 ml [facility] LV ejection fraction, 1-p A2C 67 % [facility] LV E/e', lateral 10.0 [facility] LV E/e', medial 0.1 [facility] LV E/e', average 5 [facility] LV end-diastolic volume, 1-p A4C 92 ml [facility] Anatomical Region Laterality Modality Ultrasound Narrative 11/04/2021 10:48 EST ?Left??Ventricle: Left ventricular systolic function was normal with an ejection fraction of 60-65%. There was mild concentric hypertrophy of the left ventricle. Left ventricular wall motion was normal; there were no regional wall motion abnormalities. ?Right??Ventricle: The right ventricular cavity was upper limits of normal in size. Right ventricular systolic function was normal. ?Left??Atrium: Left atrial cavity was moderately dilated. Left Ventricle The left ventricular cavity was normal in size. Left ventricular systolic function was normal with an ejection fraction of 60-65%. The study is not technically sufficient to allow evaluation of left ventricular diastolic function. There was mild concentric hypertrophy of the left ventricle. Left ventricular wall motion was normal; there were no regional wall motion abnormalities. Right Ventricle The right ventricular cavity was upper limits of normal in size. Right ventricular systolic function was normal. Right ventricular wall thickness was normal. Left Atrium Left atrial cavity was moderately dilated. Right Atrium The right atrium was normal in size. IVC/SVC The inferior vena cava was normal in size. Mitral Valve Mitral valve structure was normal. There was no significant mitral valve stenosis or regurgitation. Tricuspid Valve Tricuspid valve structure was normal. There was no tricuspid valve regurgitation. There was no tricuspid valve stenosis. Aortic Valve The aortic valve structure was trileaflet. The aortic leaflets were not thickened. There was no aortic valve stenosis. There was no aortic valve regurgitation. Pulmonic Valve The pulmonic valve was not well visualized. There was trace pulmonic valve regurgitation. There was no pulmonic valve stenosis. Ascending Aorta The aorta was normal in size. Pericardium There was no pericardial effusion. Pulmonic Artery Pulmonary systolic pressure was within the normal range. Study Details Study status: Routine. Transthoracic echocardiography. M-Mode, complete 2D, complete spectral Doppler, and color Doppler.The study was interpreted by [facility]. Pertinent images and digital data are archived for permanent storage and are available for subsequent review. Scanning was performed from the apical, parasternal and subcostal acoustic windows. Overall the study quality was adequate. Images were obtained using cardiac ultrasound machine EPIQ #13. Wilian Long DO CARDIAC ECHO ORDERABLES Final Result * (ABNORMAL) PROTIME (11/04/2021 6:47 EST) I.N.R. 1.2(H) 0.9 - 1.1 Ratio 11/04/2021 7:39 EST [facility] Pro Time 13.8(H) 10.4 - 12.6 secs 11/04/2021 7:39 EST [facility] Blood VENOUS BLOOD / Unknown Venipuncture / Unknown 11/04/2021 6:47 EST 11/04/2021 6:54 EST Narrative [facility] - 11/04/2021 7:39 EST Moderate Intensity Coumadin INR = 2.0-3.0 Adjustments in anticoagulant therapy dose should be based on the INR and NOT on the Protime. Wilian Long DO HEMATOLOGY & PF4 ORDERAB LES Final Result [facility] [address] [place] [address] * (ABNORMAL) COMPLETE BLOOD COUNT (11/04/2021 6:47 EST) [facility] WBC 5.75 4.00 - 12.40 K/cmm 11/04/2021 7:14 [facility] RBC 3.42(L) 3.86 - 5.04 M/cmm 11/04/2021 7:14 [facility] Hemoglobin 9.6(L) 11.6 - 15.2 gm/dL 11/04/2021 7:14 [facility] HCT 30.2(L) 34.9 - 44.4 % 11/04/2021 7:14 [facility] MCV 88 81 - 98 fl 11/04/2021 7:14 [facility] MCH 28.1 26.7 - 33.3 pg 11/04/2021 7:14 [facility] MCHC 31.8(L) 32.1 - 35.9 gm/dL 11/04/2021 7:14 [facility] RDW-CV 15.8(H) <14.7 % 11/04/2021 7:14 [facility] RDW-SD 51.3(H) <50.4 fl 11/04/2021 7:14 [facility] PLT 144 141 - 377 K/cmm 11/04/2021 7:14 [facility] MPV 9.4(L) 9.5 - 12.7 fl 11/04/2021 7:14 [facility] Blood VENOUS BLOOD / Unknown Venipuncture / Unknown 11/04/2021 6:47 EST 11/04/2021 6:56 EST Wilian Long DO HEMATOLOGY & PF4 ORDERAB LES Final Result [facility] [address] [place] [address] * (ABNORMAL) COMPREHENSIVE METABOLIC PANEL (CMP) (11/04/2021 6:47 EST) Sodium 132(L) 136 - 145 mmol/L 11/04/2021 7:58 [facility] Potassium 4.1 3.5 - 5.0 mmol/L 11/04/2021 7:58 [facility] Chloride 97 96 - 110 mmol/L 11/04/2021 7:58 [facility] CO2 Total 30 22 - 32 mmol/L 11/04/2021 7:58 [facility] Glucose 153(H) 70 - 100 mg/dL 11/04/2021 7:58 [facility] BUN 11 10 - 26 mg/dL 11/04/2021 7:58 [facility] Creatinine 0.87 0.52 - 1.04 mg/dL 11/04/2021 7:58 [facility] eGFR 72 >60 mL/min/1.7 3m2 11/04/2021 7:58 [facility] Total Protein 6.6 6.3 - 8.2 g/dL 11/04/2021 7:58 [facility] Albumin 3.1(L) 3.4 - 4.9 g/dL 11/04/2021 7:58 [facility] Alkaline Phosphatase 111 38 - 126 U/L 11/04/2021 7:58 [facility] AST 27 15 - 46 U/L 11/04/2021 7:58 [facility] ALT 11 <35 U/L 11/04/2021 7:58 [facility] Bilirubin, Total 0.7 <1.4 mg/dL 11/04/20 7:58 [facility] Calcium 8.6 8.5 - 10.5 mg/dL 11/04/2021 7:58 [facility] Albumin/Globulin Ratio 0.9(L) 1.0 - 2.5 11/04/2021 7:58 [facility] Anion Gap 5(L) 8 - 16 11/04/2021 7:58 [facility] Blood VENOUS BLOOD / Unknown Venipuncture / Unknown 11/04/2021 6:47 EST 11/04/2021 6:56 EST Wilian Long DO CHEMISTRY & BLOOD GAS OR DERABLES Final Result Performing Organization Address [facility] Co de Phone Number [facility] [address] [place] [id number] * COVID-19 TEST [facility] PCR (11/03/2021 14:14 EST) Swab ENTIRE NASOPHARYNX / Unknown Swab / Unknown 11/03/2021 14:14 EST 11/03/2021 14:18 EST Daniel Agudelo MD MICROBIOLOGY - GENERAL ORDER YANN Final Result Performing Organization Address [facility] Co de Phone Number [facility] [address] [place] [id number] * COVID-19 TESTING (11/03/2021 14:14 EST) COVID-19 rt-PCR Result Negative Negative 11/03/2021 20:13 EST [facility] Comment: This test has not [...] history, and epidemiological information. Performed on the [employer] Fusion instrument Performing Lab [place] [facility] 11/03/2021 20:13 EST [facility] Swab ENTIRE NASOPHARYNX / Unknown Swab / Unknown 11/03/2021 14:14 EST 11/03/2021 14:18 EST us Daniel Agudelo MD MICROBIOLOGY - GENERAL ORDER YANN Final Result [facility] [address] [place] [address] * (ABNORMAL) COMPLETE BLOOD COUNT (11/03/2021 13:39 EST) WBC 5.36 4.00 - 12.40 K/cmm 11/03/2021 14:05 [facility] RBC 3.30(L) 3.86 - 5.04 M/cmm 11/03/2021 14:05 [facility] Hemoglobin 9.1(L) 11.6 - 15.2 gm/dL 11/03/2021 14:05 [facility] HCT 28.3(L) 34.9 - 44.4 % 11/03/2021 14:05 [facility] MCV 86 81 - 98 fl 11/03/2021 14:05 [facility] MCH 27.6 26.7 - 33.3 pg 11/03/2021 14:05 [facility] MCHC 32.2 32.1 - 35.9 gm/dL 11/03/2021 14:05 [facility] RDW-CV 15.5(H) <14.7 % 11/03/2021 14:05 [facility] RDW-SD 48.6 <50.4 fl 11/03/2021 14:05 [facility] PLT 146 141 - 377 K/cmm 11/03/2021 14:05 [facility] MPV 9.3(L) 9.5 - 12.7 fl 11/03/2021 14:05 [facility] Blood VENOUS BLOOD / Unknown Venipuncture / Unknown 11/03/2021 13:39 EST 11/03/2021 13:48 EST us Daniel Agudelo MD HEMATOLOGY & PF4 ORDERABLES Final Result [facility] [address] [place] [id number] * CT HEAD WO CONTRAST (11/03/2021 13:04 EST) Anatomical Region Laterality Modality Head Computed Tomogra phy 11/03/2021 13:4 1 EST Impressions 11/03/2021 13:41 EST No evidence of recent intracranial hemorrhage, acute infarction, or mass. I have personally reviewed the images and the above interpretation and agree with the findings. Narrative 11/03/2021 13:41 EST EXAM: CT HEAD WO CONTRAST HISTORY: Head trauma, mod-severe ?? TECHNIQUE: CT head without contrast. Structured [...] clear. EXTRACRANIAL SOFT TISSUES: Unremarkable. Procedure Note Daniel Ragland MD - 11/03/2021 EXAM: CT HEAD WO CONTRAST HISTORY: Head trauma, mod-severe TECHNIQUE: CT head without contrast. Structured report code: [id number].CT01 COMPARISON: Multiple CT head exams, most recently 06/29/2021. FINDINGS: PARENCHYMA: No evidence of infarction. No parenchymal hemorrhage. No mass or midlineshift. There is mild parenchymal volume loss. There are scattered hypodensitiesin the supratentorial periventricular and subcortical white matter whichare nonspecific but likely represent chronic microangiopathic changes. EXTRA-AXIAL SPACES: No extra-axial collection. No extra-axial mass. VENTRICULAR SYSTEM: Normal size and configuration. No obstructive hydrocephalus. VESSELS: Limited evaluation without IV contrast. Normal density in the dural venoussinuses. BONES: No concerning lesions. No evidence of fracture. Dental caries noted. ORBITS: No significant abnormality. PARANASAL SINUSES/MASTOID AIR CELLS: Predominantly clear. EXTRACRANIAL SOFT TISSUES: Unremarkable. IMPRESSION No evidence of recent intracranial hemorrhage, acute infarction, ormass. I have personally reviewed the images and the above interpretation andagree with the findings. us Daniel Agudelo MD IMG CT ORDERABLES Final Resu lt * CT ANGIO ABDOMEN PELVIS (11/03/2021 13:04 EST) Anatomical Region Laterality Modality Body, Abdomen, Pelvis, Abdomen and Pelvis Computed Tomography 11/04/2021 8:56 EST Addenda Addendum by Adriane Guzman MD on 11/04/2021 12:10 EST Addendum: Additional IMPRESSION: The portal venous thrombus does not extend into the superior mesenteric vein. No superior mesenteric venous thrombosis. Impressions 11/04/2021 8:56 EST 1. ??No evidence of active gastrointestinal bleeding. 2. ??Redemonstration of extensive nonocclusive portal venous thrombus with some thrombus progression within the proximal right portal vein. The splenic vein decompresses via a shunt along the anterior left abdominal wall. 3. ??Status post partial distal splenic embolization with unchanged partial infarction of the enlarged spleen. 4. 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 Continued imaging follow-up is suggested. 5. ??Near-complete resolution of the previously seen ascites, now with only trace ascites. 6. ??Likely pulmonary edema. 7. ??Minimal atherosclerotic vascular disease without severe stenosis or occlusion of the arterial vasculature. 8. ??Additional chronic/incidental findings, as detailed in the body of the report. I have personally reviewed the images and the above interpretation and agree with the findings. Narrative 11/04/2021 8:[address] ANGIO ABDOMEN PELVIS ?? Signs and Symptoms/Comments: ?? GI bleed Technique: CT angiography of the abdomen and pelvis was performed with the administration of 100 cc intravenous contrast. Precontrast, arterial, and venous phase images were acquired. Coronal and sagittal multiplanar reformations, as well as maximum intensity projection and 3-D reconstructions, were also performed. I have personally reviewed and adjusted the images for the 3D rendering on an independent workstation, as necessary, prior to interpretation. Comparison: CTAs of the abdomen and pelvis 10/08/2021 and 07/16/2021. Splenic artery embolization 09/28/2021. Findings: Vascular structures: The abdominal aorta is patent and, aside from scattered punctate calcified plaque, disease free. The celiac artery and its branch vessels are patent. Patient is status post partial distal splenic embolization. 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 The SMA and SHAVON are patent and disease free. Left renal artery duplication. The renal arteries are patent and disease free. On the right: There are punctate calcifications within the common, external, and internal iliac arteries without severe stenosis or occlusion. The common femoral artery, and included SFA and profunda femoris arteries are patent and disease free. On the left: There are punctate calcifications within the common, external, and internal iliac arteries without severe stenosis or occlusion. The common femoral artery, and included SFA and profunda femoris arteries are patent and disease free. There is no evidence of active gastrointestinal bleeding. Again seen is extensive though nonocclusive portal venous thrombus. There is some thrombus progression in the proximal right portal vein (venous axial image 63). Otherwise, the degree of portal venous thrombus is similar to 4 weeks prior. There is a spleno systemic shunt along the anterior left body wall. Non-vascular structures: Lower chest: There is increased fissural thickening and there are Jolie B lines seen on coronal imaging. No pleural effusion. There is no pericardial thickening or effusion. The left atrium is enlarged. Hepatobiliary: Nonocclusive portal venous thromboses discussed below. There are no suspicious hepatic lesions. There is trace biliary ductal dilation, similar to prior study. The gallbladder surgically absent. There are no radiopaque biliary ductal stones. Spleen, pancreas, adrenal glands: Again seen is partial splenic embolization for hypersplenism. The degree of splenic infarction is similar to 4 weeks prior. The pancreas and adrenal glands are normal. Kidneys and ureters: The kidneys enhance symmetrically. There is no nephrolithiasis or hydroureteronephrosis. The bladder is normal. Pelvis: The uterus is surgically absent. There are no adnexal masses. Bowel: The distal esophagus is normal. There is no bowel obstruction or inflammatory change. Peritoneal cavity: Previously seen small volume ascites has nearly-completely resolved. No free air. Abdominal wall: Patient is status post mesh right upper quadrant paramedian ventral hernia repair. There are no bowel-containing hernias. Lymphatic: No lymphadenopathy. Musculoskeletal: There is multilevel disc space narrowing, osteophyte formation, and facet arthropathy. There are unchanged bilateral subcutaneous gluteal calcifications. Procedure Note Adriane Guzman MD - 11/04/2021 CT ANGIO ABDOMEN PELVIS Signs and Symptoms/Comments: GI bleed Technique: CT angiography of the abdomen and pelvis was performed with theadministration of 100 cc intravenous contrast. Precontrast, arterial, andvenous phase images were acquired. Coronal and sagittal multiplanarreformations, as well as maximum intensity projection and 3-Dreconstructions, were also performed. I have personally reviewed andadjusted the images for the 3D rendering on an independent workstation, [place], prior to interpretation. Comparison: CTAs of the abdomen and pelvis 10/08/2021 and 07/16/2021.Splenic artery embolization 09/28/2021. Findings: Vascular structures: The abdominal aorta is patent and, aside from scattered punctate calcifiedplaque, disease free. The celiac artery and its branch vessels are patent. Patient is statuspost partial distal splenic embolization. Saccular splenic artery branchaneurysm measuring up to 1.5 cm in greatest dimension (series 501, image75 and series 504, image 104), unchanged compared to recent prior thoughslightly increased as compared to 11/26/2019, where it measured 1.3 cm. TheSMA and SHAVON are patent and disease free. Left renal artery duplication. The renal arteries are patent and diseasefree. On the right: There are punctate calcifications within the common,external, and internal iliac arteries without severe stenosis orocclusion. The common femoral artery, and included SFA and profundafemoris arteries are patent and disease free. On the left: There are punctate calcifications within the common,external, and internal iliac arteries without severe stenosis orocclusion. The common femoral artery, and included SFA and profundafemoris arteries are patent and disease free. There is no evidence of active gastrointestinal bleeding. Again seen is extensive though nonocclusive portal venous thrombus. Thereis some thrombus progression in the proximal right portal vein (venousaxial image 63). Otherwise, the degree of portal venous thrombus issimilar to 4 weeks prior. There is a spleno systemic shunt along theanterior left body wall. Non-vascular structures: Lower chest: There is increased fissural thickening and there are Jolie Blines seen on coronal imaging. No pleural effusion. There is nopericardial thickening or effusion. The left atrium is enlarged. Hepatobiliary: Nonocclusive portal venous thromboses discussed below.There are no suspicious hepatic lesions. There is trace biliary ductaldilation, similar to prior study. The gallbladder surgically absent. Thereare no radiopaque biliary ductal stones. Spleen, pancreas, adrenal glands: Again seen is partial splenicembolization for hypersplenism. The degree of splenic infarction issimilar to 4 weeks prior. The pancreas and adrenal glands are normal. Kidneys and ureters: The kidneys enhance symmetrically. There is nonephrolithiasis or hydroureteronephrosis. The bladder is normal. Pelvis: The uterus is surgically absent. There are no adnexal masses. Bowel: The distal esophagus is normal. There is no bowel obstruction orinflammatory change. Peritoneal cavity: Previously seen small volume ascites hasnearly-completely resolved. No free air. Abdominal wall: Patient is status post mesh right upper quadrantparamedian ventral hernia repair. There are no bowel-containing hernias. Lymphatic: No lymphadenopathy. Musculoskeletal: There is multilevel disc space narrowing, osteophyteformation, and facet arthropathy. There are unchanged bilateralsubcutaneous gluteal calcifications. IMPRESSION 1. No evidence of active gastrointestinal bleeding. 2. Redemonstration of extensive nonocclusive portal venous thrombus withsome thrombus progression within the proximal right portal vein. Thesplenic vein decompresses via a shunt along the anterior left abdominalwall. 3. Status post partial distal splenic embolization with unchanged partialinfarction of the enlarged spleen. 4. 1.5 cm saccular splenic artery branch aneurysm, unchanged compared toprior though slightly increased as compared to 11/26/2019. Continued imagingfollow-up is suggested. 5. Near-complete resolution of the previously seen ascites, now with onlytrace ascites. 6. Likely pulmonary edema. 7. Minimal atherosclerotic vascular disease without severe stenosis orocclusion of the arterial vasculature. 8. Additional chronic/incidental findings, as detailed in the body of thereport. I have personally reviewed the images and the above interpretation andagree with the findings. Daniel Agudelo MD IMG CT ORDERABLES Edited Res ult - Final * POCT US ED EXTENDED FOCUSED ABD TRAUMA (EFAST) (11/03/2021 12:22 EST) Anatomical Region Laterality Modality Other 11/03/2021 12:2 2 EST Narrative 11/04/2021 16:24 EST Study Date and Time: 2021-11-03 12:22 Study Author: Daniel VARGAS ED Extended FAST Exam - EFAST: Indications: ?Select any that apply.: Hypotension ?Other: N/A Views: ?RT Thorax for lung sliding: Limited ?LT Thorax for lung sliding: Limited ?Pericardial: Limited ?RUQ (inferior pole of liver/Pyle's Pouch): Adequate ?RT Lateral Thorax for fluid: Adequate ?LUQ (splenorenal/subdiaphragmatic): Adequate ?LT Lateral Thorax for fluid: Adequate ?Retrovesicular Space: Adequate ?Other Views Obtained: N/A Lung Findings: ?RT Lung Sliding: Indeterminate ?LT Lung Sliding: Present, Indeterminate ?Estimated pneumothorax size (cm): N/A ?RT Thoracic fluid (RUQ): Absent ?LT Thoracic fluid (LUQ): Absent ?Other lung findings: N/A FAST Findings: ?Pericardial space: Indeterminate ?Other cardiac findings: N/A ?IVC: N/A ?RUQ (Inferior Pole of Liver/Pyle's Pouch): Fluid Absent ?Other RUQ findings: N/A ?LUQ (splenorenal/subdiaphragmatic space): Fluid Absent ?Other LUQ findings: N/A ?Retrovesicular Space: Fluid Absent ?Other Retrovesicular Findings:: N/A Interpretation: ?RT Lung pneumothorax: Indeterminate ?LT Lung pneumothorax: Indeterminate ?Pericardial Fluid: Indeterminate ?Other Cardiac: N/A ?RT Thoracic fluid: Absent ?LT Thoracic fluid: Absent ?Peritoneal free fluid: Absent ?Other: N/A Confirmatory Study: ?What confirmatory study was ordered during ED evaluation?: CT ?Confirmatory Study Findings/Comments: N/A Signed by Daniel VARGAS on 2021-11-03 18:37 Physician Attestation: I reviewed and independently interpreted these images. ??I was present for the brown and critical portions of the ultrasound imaging and agree with or have edited the findings as documented. Final Signature by Laurent ARCHER on 2021-11-04 16:24 Procedure Note Laurent Marmolejo DO - 11/04/2020 Study Date and Time: 2021-11-03 12:22 Study Author: Daniel VARGAS ED Extended FAST Exam - EFAST: Indications: Select any that apply.: Hypotension Other: N/A Views: RT Thorax for lung sliding: Limited LT Thorax for lung sliding: Limited Pericardial: Limited RUQ (inferior pole of liver/Pyle's Pouch): Adequate RT Lateral Thorax for fluid: Adequate LUQ (splenorenal/subdiaphragmatic): Adequate LT Lateral Thorax for fluid: Adequate Retrovesicular Space: Adequate Other Views Obtained: N/A Lung Findings: RT Lung Sliding: Indeterminate LT Lung Sliding: Present, Indeterminate Estimated pneumothorax size (cm): N/A RT Thoracic fluid (RUQ): Absent LT Thoracic fluid (LUQ): Absent Other lung findings: N/A FAST Findings: Pericardial space: Indeterminate Other cardiac findings: N/A IVC: N/A RUQ (Inferior Pole of Liver/Pyle's Pouch): Fluid Absent Other RUQ findings: N/A LUQ (splenorenal/subdiaphragmatic space): Fluid Absent Other LUQ findings: N/A Retrovesicular Space: Fluid Absent Other Retrovesicular Findings:: N/A Interpretation: RT Lung pneumothorax: Indeterminate LT Lung pneumothorax: Indeterminate Pericardial Fluid: Indeterminate Other Cardiac: N/A RT Thoracic fluid: Absent LT Thoracic fluid: Absent Peritoneal free fluid: Absent Other: N/A Confirmatory Study: What confirmatory study was ordered during ED evaluation?: CT Confirmatory Study Findings/Comments: N/A Signed by Daniel VARGAS on 2021-11-03 18:37 Physician Attestation: I reviewed and independently interpreted theseimages. I was present for the brown and critical portions of the ultrasoundimaging and agree with or have edited the findings as documented. Final Signature by Laurent ARCHER on 2021-11-04 16:24 us Daniel Agudelo MD IMG POCT US ORDERABLES Final Result * LACTIC ACID (11/03/2021 12:12 EST) Lactic Acid 1.2 <=2.0 mmol/L 11/03/2021 12:33 EST [facility] Blood VENOUS BLOOD / Unknown Venipuncture / Unknown 11/03/2021 12:12 EST 11/03/2021 12:19 EST us Daniel Agudelo MD CHEMISTRY & BLOOD GAS ORDERA BLES Final Result [facility] [address] [place] [address] * POCT US ED GUIDANCE PIV (11/03/2021 11:29 EST) Anatomical Region Laterality Modality Other 11/03/2021 11:2 9 EST Narrative 11/04/2021 18:35 EST Study Date and Time: 2021-11-03 11:29 Study Author: Hi VARGAS ED Procedural Guidance - PIV: Indications: ?Indications [...] study was performed during patient ED evaluation?: IV patency confirmed by flushing without resistance or tissue infiltration ?Comments: N/A Signed by Hi VARGAS on 2021-11-03 12:40 Physician Attestation: I reviewed and independently interpreted these images. ??I was present for the brown and critical portions of the ultrasound imaging and agree with or have edited the findings as documented. Final Signature by Kathleen ARCHER on 2021-11-04 18:35 Procedure Note Kathleen Castro MD - 11/04/2021 Study Date and Time: 2021-11-03 11:29 Study Author: Hi VARGAS ED Procedural Guidance - PIV: Indications: Indications [...] confirmatory study was performed during patient ED evaluation?:IV patency confirmed by flushing without resistance or tissueinfiltration Comments: N/A Signed by Hi VARGAS on 2021-11-03 12:40 Physician Attestation: I reviewed and independently interpreted theseimages. I was present for the brown and critical portions of the ultrasoundimaging and agree with or have edited the findings as documented. Final Signature by Kathleen ARCHER on 2021-11-04 18:35 us Kathleen Castro MD IMG POCT US ORDERABLE S Final Result * LIPASE (11/03/2021 11:27 EST) Lipase 39 <251 U/L 11/03/2021 13:48 EST [facility] Blood VENOUS BLOOD / Unknown Venipuncture / Unknown 11/03/2021 11:27 EST 11/03/2021 11:32 EST us Daniel Agudelo MD CHEMISTRY & BLOOD GAS ORDERA BLES Final Result Performing Organization Address City/[facility] Co de Phone Number [facility] [address] [place] [address] * TYPE AND SCREEN (11/03/2021 11:27 EST) ABO O 11/03/2021 12:15 EST [facility] Rh Factor Positive 11/03/2021 12:15 EST [facility] Antibody Screen Negative 11/03/2021 12:15 EST [facility] Specimen Expires: 11/06/2021 @ 23:59 11/03/2021 12:15 EST [facility] Blood VENOUS BLOOD / Unknown Venipuncture / Unknown 11/03/2021 11:27 EST 11/03/2021 11:33 EST us Daniel Agudelo MD BLOOD BANK TESTS Edited Resu lt - Final Performing Organization Address City/[facility] Co de Phone Number [facility] [address] [facility] [place] [address] * PTT (11/03/2021 11:27 EST) Pathologist [facility] PTT 31 26 - 37 secs 11/03/2021 11:54 EST [facility] Blood VENOUS BLOOD / Unknown Venipuncture / Unknown 11/03/2021 11:27 EST 11/03/2021 11:32 EST Daniel Agudelo MD HEMATOLOGY & PF4 ORDERABLES Final Result Performing Organization Address [facility] Co de Phone Number [facility] [address] [place] [address] * (ABNORMAL) PROTIME (11/03/2021 11:27 EST) I.N.R. 1.3(H) 0.9 - 1.1 Ratio 11/03/2021 11:54 EST [facility] Pro Time 14.6(H) 10.4 - 12.6 secs 11/03/2021 11:54 [facility] Blood VENOUS BLOOD / Unknown Venipuncture / Unknown 11/03/2021 11:27 EST 11/03/2021 11:32 EST Narrative [facility] - 11/03/2021 11:54 EST Moderate Intensity Coumadin INR = 2.0-3.0 Adjustments in anticoagulant therapy dose should be based on the INR and NOT on the Protime. us Daniel Agudelo MD HEMATOLOGY & PF4 ORDERABLES Final Result [facility] [address] [place] [address] * (ABNORMAL) COMPREHENSIVE METABOLIC PANEL (CMP) (11/03/2021 11:27 EST) Sodium 130(L) 136 - 145 mmol/L 11/03/2021 12:04 [facility] Potassium 4.2 3.5 - 5.0 mmol/L 11/03/2021 12:04 [facility] Chloride 95(L) 96 - 110 mmol/L 11/03/2021 12:04 [facility] CO2 Total 29 22 - 32 mmol/L 11/03/2021 12:04 [facility] Glucose 163(H) 70 - 100 mg/dL 11/03/2021 12:04 [facility] BUN 13 10 - 26 mg/dL 11/03/2021 12:04 [facility] Creatinine 0.94 0.52 - 1.04 mg/dL 11/03/2021 12:04 [facility] eGFR 66 >60 mL/min/1.7 3m2 11/03/2021 12:04 [facility] Total Protein 6.9 6.3 - 8.2 g/dL 11/03/2021 12:04 [facility] Albumin 3.3(L) 3.4 - 4.9 g/dL 11/03/2021 12:04 [facility] Alkaline Phosphatase 114 38 - 126 U/L 11/03/2021 12:04 [facility] AST 34 15 - 46 U/L 11/03/2021 12:04 [facility] ALT 13 <35 U/L 11/03/2021 12:04 [facility] Bilirubin, Total 0.9 <1.4 mg/dL 11/03/20 12:04 [facility] Calcium 8.4(L) 8.5 - 10.5 mg/dL 11/03/2021 12:04 [facility] Albumin/Globulin Ratio 0.9(L) 1.0 - 2.5 11/03/2021 12:04 [facility] Anion Gap 6(L) 8 - 16 11/03/2021 12:04 [facility] Blood VENOUS BLOOD / Unknown Venipuncture / Unknown 11/03/2021 11:27 EST 11/03/2021 11:32 EST Daniel Agudelo MD CHEMISTRY & BLOOD GAS ORDERA BLES Final Result Performing Organization Address City/State/[facility] Co de Phone Number [facility] [address] [place] [address] * (ABNORMAL) COMPLETE BLOOD COUNT AND DIFFERENTIAL (11/03/2021 11:27 EST) WBC 5.72 4.00 - 12.40 K/cmm 11/03/2021 11:45 [facility] RBC 3.29(L) 3.86 - 5.04 M/cmm 11/03/2021 11:45 [facility] Hemoglobin 9.1(L) 11.6 - 15.2 gm/dL 11/03/2021 11:45 [facility] HCT 28.5(L) 34.9 - 44.4 % 11/03/2021 11:45 [facility] MCV 87 81 - 98 fl 11/03/2021 11:45 [facility] MCH 27.7 26.7 - 33.3 pg 11/03/2021 11:45 [facility] MCHC 31.9(L) 32.1 - 35.9 gm/dL 11/03/2021 11:45 [facility] RDW-CV 15.6(H) <14.7 % 11/03/2021 11:45 [facility] RDW-SD 49.1 <50.4 fl 11/03/2021 11:45 [facility] PLT 153 141 - 377 K/cmm 11/03/2021 11:45 [facility] MPV 9.2(L) 9.5 - 12.7 fl 11/03/2021 11:45 [facility] % Neutrophils 85.8 % 11/03/2021 11:45 [facility] % Lymphocytes 4.4 % 11/03/2021 11:45 [facility] % Monocytes 9.4 % 11/03/2021 11:45 [facility] % Eosinophils 0.0 % 11/03/2021 11:45 [facility] % Basophils 0.2 % 11/03/2021 11:45 [facility] % Immature Grans 0.2 % 11/03/20 11:45 [facility] Absolute Neutrophils 4.91 2.20 - 8.85 K/cmm 11/03/2021 11:45 [facility] Absolute Lymphocytes 0.25(L) 1.09 - 3.30 K/cmm 11/03/2021 11:45 [facility] Absolute Monocytes 0.54 0.10 - 0.80 K/cmm 11/03/2021 11:45 [facility] Absolute Eosinophils 0.00(L) 0.03 - 0.61 K/cmm 11/03/2021 11:45 [facility] ABS Basophils 0.01 0.01 - 0.11 K/cmm 11/03/2021 11:45 [facility] [facility] Absolute Immature Grans 0.01 0.00 - 0.06 K/cmm 11/03/2021 11:45 [facility] Type of Differential: Auto 11/03/2021 11:45 [facility] Blood VENOUS BLOOD / Unknown Venipuncture / Unknown 11/03/2021 11:27 EST 11/03/2021 11:32 EST us Daniel Agudelo MD PACKAGES & DNA PROBE ORDERAB LES Final Result [facility] [address] [place] [address] documented in this encounter Visit Diagnoses Diagnosis Abdominal pain- Primary Abdominal pain, unspecified site GI bleed Hemorrhage of gastrointestinal tract, unspecified Gastrointestinal hemorrhage with melena Generalized abdominal pain Abdominal pain, generalized Chronic pain syndrome Other cirrhosis of liver (HCC-CMS) Peptic ulcer disease with hemorrhage Chronic or unspecified peptic ulcer, unspecified site, with hemorrhage, without mention of obstruction Portal vein thrombosis GI bleed Hemorrhage of gastrointestinal tract, unspecified Chronic pain syndrome Other cirrhosis of liver (HCC-CMS) Obesity, Class II, BMI 35-39.9 Obesity, unspecified Hypothyroidism Unspecified hypothyroidism HUEY (obstructive sleep apnea) Obstructive sleep apnea (adult) (pediatric) COPD (chronic obstructive pulmonary disease) (HCC-CMS) (HCC) Chronic airway obstruction, not elsewhere classified Portal vein thrombosis Peptic ulcer disease with hemorrhage Chronic or unspecified peptic ulcer, unspecified site, with hemorrhage, without mention of obstruction documented in this encounter Admitting Diagnoses Diagnosis Abdominal pain Abdominal pain, unspecified site documented in this encounter Administered Medications Inactive Administered Medications - up to 3 most recent administrations Medication Order MAR Action Action Date Dose Rate Site budesonide-formoterol HFA (SYMBICORT) 160-4.5 mcg/actuation inhaler 2 Puff 2 Puff, inhalation, DAILY, First dose on Tue11/03/21 at 1700, Until Discontinued, Routine Given 11/04/2021 9:50 EST 2 Puffs Given 11/03/2021 17:20 EST 2 Puffs cefTRIAXone (ROCEPHIN) 1,000 mg in sodium chloride (NS MBP) 50 mL IVPB 1,000 mg, intravenous, Administer over 30 Minutes, NOW X1, 1 dose, On Tue11/03/21 at 1200, Type of Therapy: Empiric, Suspected Indication (Select all that apply): Other, Other Indication: GIB, hx varices, ID Consult: No, STAT New Bag 11/03/2021 12:14 EST 1,000 mg cefTRIAXone (ROCEPHIN) 1,000 mg in sodium chloride (NS MBP) 50 mL IVPB 1,000 mg, intravenous, Administer over 30 Minutes, EVERY 24 HOURS, 6 doses, First dose on Tue11/04/21 at 0900, Last dose on Tue11/09/21 at 0900, Type of Therapy: Prophylaxis, Suspected Indication (Select all that apply): GI bleed with known cirrhosis, ID Consult: No, Routine Given 11/04/2021 8:52 EST 1,000 mg furosemide (LASIX) tablet 40 mg 40 mg, oral, DAILY, First dose on Tue11/04/21 at 0900, Until Discontinued, Routine Given 11/04/2021 8:51 EST 40 mg HYDROmorphone (DILAUDID) tablet 2 mg 2 mg, oral, EVERY 6 HOURS PRN, Starting on Tue11/03/21 at 1635, Until Tue11/04/21 at 1824, Pain, Routine Given 11/04/2021 6:39 EST 2 mg Given 11/03/2021 19:15 EST 2 mg HYDROmorphone (PF) (DILAUDID) 0.5 mg/0.5 mL syringe 0.5 mg 0.5 mg, intravenous, NOW X1, 1 dose, On Tue11/03/21 at 1200, STAT Given 11/03/2021 12:15 EST 0.5 mg iohexoL (OMNIPAQUE 350) solution 100 mL 100 mL, intravenous, Once in imaging, 1 dose, Starting on Tue11/03/21 at 1238, Until Tue11/03/21 at 1304, Routine, Imaging Protocol Orders Given 11/03/2021 13:04 EST 100 mL lactated ringers BOLUS 1,000 mL 1,000 mL, intravenous, NOW X1, 1 dose, On Tue11/03/21 at 1300, STAT New Bag 11/03/2021 13:49 EST 1,000 mL levothyroxine (SYNTHROID) tablet 25 mcg 25 mcg, oral, DAILY BEFORE BREAKFAST, First dose on Tue11/04/21 at 0700, Until Discontinued, Routine Given 11/04/2021 6:39 EST 25 mcg pantoprazole (PROTONIX) injection 40 mg 40 mg, intravenous, NOW X1, 1 dose, On Tue11/03/21 at 1130, STAT Given 11/03/2021 11:59 EST 40 mg pantoprazole (PROTONIX) injection 40 mg 40 mg, intravenous, 2 TIMES DAILY, First dose on Tue11/03/21 at 2100, Until Discontinued, Routine Given 11/04/2021 8:51 EST 40 mg Given 11/03/2021 20:55 EST 40 mg sertraline (ZOLOFT) tablet 50 mg 50 mg, oral, DAILY, First dose on Tue11/04/21 at 0900, Until Discontinued, Routine Given 11/04/2021 8:51 EST 50 mg spironolactone (ALDACTONE) tablet 100 mg 100 mg, oral, DAILY, First dose on Tue11/04/21 at 0900, Until Discontinued, Routine Given 11/04/2021 8:51 EST 100 mg sucralfate (CARAFATE) suspension 1 g 1 g, oral, 4 TIMES DAILY BEFORE MEALS & AT BEDTIME, First dose on Tue11/03/21 at 1700, Until Discontinued, Routine Given 11/04/2021 7:42 EST 1 g Given 11/03/2021 20:55 EST 1 g Given 11/03/2021 17:25 EST 1 g documented in this encounter Active and Recently Administered Medications Times are shown in EST. Scheduled Medication Order 11/02/2021 11/03/2021 11/04/2021 budesonide-formoterol HFA (SYMBICORT) 160-4.5 mcg/actuation inhaler 2 Puff 2 Puff, inhalation, DAILY, First dose on Tue11/03/21 at 1700, Until Discontinued, Routine 1720 (Given - Provider: Carlo Santiago RN) 0950 (Given - Provider: Alfred Mcduffie RN) cefTRIAXone (ROCEPHIN) 1,000 mg in sodium chloride (NS MBP) 50 mL IVPB (COMPLETED) 1,000 mg, intravenous, Administer over 30 Minutes, NOW X1, 1 dose, On Tue11/03/21 at 1200, Type of Therapy: Empiric, Suspected Indication (Select all that apply): Other, Other Indication: GIB, hx varices, ID Consult: No, STAT 1214 (New Bag - Provider: Tayler Murphy, RN)1242 (Completed - Provider: Marilu Nielsen RN) cefTRIAXone (ROCEPHIN) 1,000 mg in sodium chloride (NS MBP) 50 mL IVPB 1,000 mg, intravenous, Administer over 30 Minutes, EVERY 24 HOURS, 6 doses, First dose on Tue11/04/21 at 0900, Last dose on Tue11/09/21 at 0900, Type of Therapy: Prophylaxis, Suspected Indication (Select all that apply): GI bleed with known cirrhosis, ID Consult: No, Routine 0852 (Given - Provid er: Alfred Mcduffie RN) furosemide (LASIX) tablet 40 mg 40 mg, oral, DAILY, First dose on Tue11/04/21 at 0900, Until Discontinued, Routine 0851 (Given - Provid er: Alfred Mcduffie RN) HYDROmorphone (PF) (DILAUDID) 0.5 mg/0.5 mL syringe 0.5 mg (COMPLETED) 0.5 mg, intravenous, NOW X1, 1 dose, On Tue11/03/21 at 1200, STAT 1215 (Given - Provider: Tayler Murphy RN) iohexoL (OMNIPAQUE 350) solution 100 mL (COMPLETED) 100 mL, intravenous, Once in imaging, 1 dose, Starting on Tue11/03/21 at 1238, Until Tue11/03/21 at 1304, Routine, Imaging Protocol Orders 1304 (Given - Provider: Gricelda Zavala) lactated ringers BOLUS 1,000 mL (COMPLETED) 1,000 mL, intravenous, NOW X1, 1 dose, On Tue11/03/21 at 1300, STAT 1349 (New Bag - Provider: Lon Pierre) levothyroxine (SYNTHROID) tablet 25 mcg 25 mcg, oral, DAILY BEFORE BREAKFAST, First dose on Tue11/04/21 at 0700, Until Discontinued, Routine 0639 (Given - Provid er: Tatyana Ashley RN) pantoprazole (PROTONIX) injection 40 mg (COMPLETED) 40 mg, intravenous, NOW X1, 1 dose, On Tue11/03/21 at 1130, STAT 1159 (Given - Provider: Tayler Murphy RN) pantoprazole (PROTONIX) injection 40 mg 40 mg, intravenous, 2 TIMES DAILY, First dose on Tue11/03/21 at 2100, Until Discontinued, Routine 2054 (Given - Provider: Tatyana Ashley RN) 0851 (Given - Provider: Alfred Mcduffie RN) sertraline (ZOLOFT) tablet 50 mg 50 mg, oral, DAILY, First dose on Tue11/04/21 at 0900, Until Discontinued, Routine 0851 (Given - Provid er: Alfred Mcduffie RN) spironolactone (ALDACTONE) tablet 100 mg 100 mg, oral, DAILY, First dose on Tue11/04/21 at 0900, Until Discontinued, Routine 0851 (Given - Provid er: Alfred Mcduffie RN) sucralfate (CARAFATE) suspension 1 g 1 g, oral, 4 TIMES DAILY BEFORE MEALS & AT BEDTIME, First dose on Tue11/03/21 at 1700, Until Discontinued, Routine 1725 (Given - Provider: Carlo Santiago RN)2055 (Given - Provider: Tatyana Ashley, RN) 0742 (Given - Provider: Alfred Mcduffie RN)1321 (Not Given - Provider: Alfred Mcduffie RN - Reason: Order parameters not met - Comment: Pt had lunch prior to nursing being notified)1621 (Not Given - Provider: Chele Mathur RN - Reason: Patient/family refused) PRN Medication Order 11/02/2021 11/03/2021 11/04/2021 albuterol inhaler 180 mcg 180 mcg (2 Puff), inhalation, EVERY 4 HOURS PRN, Starting on Tue11/03/21 at 1635, Until Tue11/04/21 at 1824, Wheezing, Routine HYDROmorphone (DILAUDID) tablet 2 mg 2 mg, oral, EVERY 6 HOURS PRN, Starting on Tue11/03/21 at 1635, Until Tue11/04/21 at 1824, Pain, Routine 1915 (Given - Provider: Carlo Santiago RN - Comment: abdomen) 0639 (Given - Provider: Tatyana Ashley, RN) lidocaine (PF) 10 mg/mL (1 %) injection 2 mg 2 mg, intradermal, PRN, 4 doses, Starting on Tue11/03/21 at 1635, Until Tue11/04/21 at 1824, peripheral intravenous catheter placement, Routine ondansetron (ZOFRAN-ODT) disintegrating tablet 4 mg 4 mg, oral, EVERY 6 HOURS PRN, Starting on Tue11/03/21 at 1635, Until Tue11/04/21 at 1824, Nausea, Routine traZODone (DESYREL) tablet 250 mg 250 mg, oral, AT BEDTIME PRN, Starting on Tue11/03/21 at 1635, Until Tue11/04/21 at 1824, Sleep, Routine documented in this encounter Orders Medications Ordered That Luc ht Not Have Been Administered Count Last Ordered Date First Ordered Date albuterol inhaler 180 mcg 1 11/03/2021 lidocaine (PF) 10 mg/mL (1 % ) injection 2 mg 1 11/03/2021 ondansetron (ZOFRAN-ODT) dis integrating tablet 4 mg 1 11/03/2021 traZODone (DESYREL) tablet 250 mg 1 021 Diet Count Last Ordered Date First Orde red Date DISCHARGE DIET 1 11/04/2021 Nursing Count Last Ordered Date First Orde red Date ACTIVITY INSTRUCTIONS 1 11/04/2021 BATHING INSTRUCTIONS 1 11/04/2021 DRIVING INSTRUCTIONS 1 11/04/2021 CONTRAINDICATION TO ANTICOAG ULATION THERAPY 1 11/03/2021 Admission Count Last Ordered Date First Orde red Date OUTPATIENT WITH OBSERVATION SERVICES (INITIATE OBSERVATION STATUS) 1 11/03/2021 Transfer Count Last Ordered Date First Orde red Date ED BED REQUEST 1 11/03/2021 Discharge Count Last Ordered Date First Orde red Date DISCHARGE PATIENT 1 11/04/2021 Legal Count Last Ordered Date First Orde red Date MISCELLANEOUS DISCHARGE INSTRUCTIONS 1 10/21 documented in this encounter Care Teams Redevelopment Specialist Relationship Specialty Start Date End Date Emigdio Veronica MD [address] [place] [phone] PCP - General Internal Medicine - Primary Care 05/22/20 02/21/24 Starr Paige MD [address] [place] [phone] Hematology 10/08/21 06/09/22 documented as of this encounter
--- OUTSIDE RECORDS SUMMARY | 2024-11-22 17:09 | XMS_ITS | Encounter Summary ---
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 Answer Date of Assessment Author No 10/08/2021 22:00 Lala Pearce, KENN * Do you have serious difficulty walking or climbing stairs? (5 years old or older) Answer Date of Assessment Author No 10/08/2021 22:00 Lala Pearce, KENN * Do you have difficulty dressing or bathing? (5 years old or older) Answer Date of Assessment Author No 10/08/2021 22:00 Lala Pearce, RN * Because of a physical, mental, or emotional condition, do you have difficulty doing errands alone such as visiting a doctor's office or shopping? (15 years old or older) Answer Date of Assessment Author No 10/08/2021 22:00 Lala Pearce, RN documented as of this encounter Mental Status * Because of a physical, mental, or emotional condition, do you have serious difficulty concentrating, remembering, or making decisions? (5 years old or older) Answer Entry Date Author No 10/08/2021 22:00 Lala Pearce, RN documented in this encounter Ordered Prescriptions Prescription Sig Dispense Quantity Refills Last Filled Start Date End Date traZODone (DESYREL) 100 mg tablet Take 2 and 1/2 tabs at bedtime. 75 Tablet 10/26/2021 11/18/2021 documented in this encounter Miscellaneous Notes * Telephone Encounter - Xuan Jimenez - 10/26/2021 1053 EST Requested Prescriptions Pending Prescriptions Disp Refills ??? traZODone (DESYREL) 100 mg tablet 75 Tablet 0 Sig: Take 2 and 1/2 tabs at bedtime. Patient calling would like to sampler pickup her prescriptions all at the same time. She has to go to pharmacy today. [facility]/pharmacy #[id number] - [address] Confirmed Pharmacy? Yes Patient out of medication? No Last Refill Date: 10/17/2021 Refills left? (explain exceptions requiring early refill) No Recent Visits Date Type Provider Dept 10/20/21 Office Visit Emigdio Veronica MD [facility] 10/08/21 Office Visit Emigdio Veronica MD [facility] 09/18/21 Office Visit Scottie Campuzano PA-C [facility] 07/22/21 Office Visit Scottie Campuzano PA-C [facility] 05/14/21 Office Visit Emigdio Veronica MD [facility] 04/29/21 Office Visit Emigdio Veronica MD [facility] 04/16/21 Office Visit Emigdio Veronica MD [facility] 04/10/21 Office Visit Emigdio Veronica MD [facility] 03/06/21 Office Visit Emigdio Veronica MD [facility] 01/27/21 Office Visit Dom Mackay MD [facility] Showing recent visits within past 540 days with a meds authorizing provider and meeting all other requirements Future Appointments Date Type Provider Dept 12/24/21 Appointment Emigdio Veronica MD [facility] Showing future appointments within next 150 days with a meds authorizing provider and meeting all other requirements Future appointment: Already Scheduled Xuan Jimenez 10/26/2021 10:55 documented in this encounter Plan of Treatment Upcoming Encounters Date Type Department Care Team (Late st Contact Info) Description 01/04/2025 13:00 EST Office Visit [facility] Ophthalmology [address] [phone] Gagandeep Rome MD [address] [place] [address] [address] [place] [phone] 02/11/2025 13:30 EDT Telemedicine [facility] Hematology & Oncology [address] [phone] Dana Padilla MD [address] [place] [address] [address] [place] [phone] documented as of this encounter Visit Diagnoses Not on filedocumented in this encounter Discontinued Medications Medication Sig Discontinue Reason Start Date End Da te traZODone (DESYREL) 100 mg tablet Take 2 and 1/2 tabs at bedtime. Reorder 10/17/2021 10/26/2021 documented as of this encounter Additional Health Concerns Infection Onset Date Last Indicated Resolved Time R/O COVID-19 12/14/2021 12/14/2021 12/19/2021 22:1 5 EST documented as of this encounter Care Teams Fan Engine Engineer Relationship Specialty Start Date End Date Emigdio Veronica MD [address] [place] [phone] PCP - General Internal Medicine - Primary Care 05/22/20 02/21/24 Starr Paige MD [address] [place] [phone] Hematology 10/08/21 06/09/22 Dana Padilla MD [address] [facility] [address] [place] [phone] Hematology 01/13/22 06/09/22 documented as of this encounter
--- OUTSIDE RECORDS SUMMARY | 2024-11-22 17:09 | XMS_ITS | Encounter Summary ---
Author Organization [facility] Address [address] [place] [address] Care Team Providers Care Development Editor Name Role Phone Emigdio Veronica MD Primary Care Provider + Starr Paige MD Unavailable [phone] Reason for Visit * Reason Comments New Patient Visit * Consult (See Order Priority) - Order Cancelled Specialty Diagnoses / Procedures Referred By Contkanchan t Referred To Contact Hematology and Oncology Diagnoses Hypersplenism 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HCC-CMS) Lc Luis MD Phone: tel: fax: Starr Paige MD Phone: tel: fax: Referral ID Status Reason Start Date Expiration Date Visits Requested Visits Authorized [id number] Order Cancelled Specialty Services Required 1 1 1 Encounter Details Date Type Department Care Team (Late st Contact Info) Description 10/26/2021 13:00 EST Office Visit [facility] Hematology & Oncology - [facility] [address] [place] [address] Dana Padilla MD [address] [facility], [facility], [address] [place] [address] Secondary hypercoagulable state (HCC-CMS) (Primary Dx); Primary hypercoagulable state (HCC-CMS); Other cirrhosis of liver (HCC) (HCC-CMS); Portal vein thrombosis; Upper GI bleed Social [...] 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 Not on file Not on file Not o n file documented as of this encounter Last Filed Vital Signs Vital Sign Reading Time Taken Comments Blood Pressure 123/60 10/26/2021 1258 EST Pulse 85 10/26/2021 1258 EST Temperature 36.6 ??C (97.8 ??F) 10/26/2021 1258 EST Respiratory Rate 16 10/26/2021 1258 EST Oxygen Saturation 96% 10/26/2021 1258 EST Inhaled Oxygen Concentration - - Weight 89.8 kg (197 lb 14.4 oz) 10/26/2021 1258 EST Height 161 cm (5' 3.39) 10/26/2021 1258 EST Body Mass Index 34.63 10/26/2021 1258 EST documented in this encounter Functional Status * Are you deaf or do you have serious difficulty hearing? Answer Date of Assessment Author No 10/08/2021 22:00 EST Lala Orr RN * Are you blind or do you have serious difficulty seeing, even when wearing glasses? Answer Date of Assessment Author No 10/08/2021 22:00 Lala Pearce RN * Do you have serious difficulty walking or climbing stairs? (5 years old or older) Answer Date of Assessment Author No 10/08/2021 22:00 EST Lala Orr RN * Do you have difficulty dressing [...] Lala Pearce RN documented in this encounter Patient Instructions * Patient Instructions* Dana Padilla MD - 10/26/2021 13:00 EST Welcome to the [facility]! ? We are dedicated to providing the highest quality care ? We are committed to being a partner with you in your health care decisions ? We will do our best to teach you about your condition so that you can help us take the best care of you ? You can find more information about our programs and research, and links to educational materialson our website: [email or web address] If you have concerns or questions please write us at the clinic or email us (link is on the website). Our phone number is [phone] -start your lovenox 40 mg per day (one syringe; take at same time of day each day. -come in for blood work every 10-14 days to be sure there isn't a small amount of bleeding with this. -We will let you know if we can do the MRI. If we can't do the MRI we might do an ultrasound of theliver vessels. Not sure if it will help. Will let you now. documented in this encounter Progress Notes * Dana Padilla MD - 10/26/2021 1300 EST Thrombosis & Hemostasis Program (THP) Consult H&P Date of Service: 10/26/2021 PCP: Emigdio Veronica Referring MD: Lc Luis No chief complaint on file. Assessment: Recently progressive nonocclusive portal vein thrombosis with collaterals in the area, recognized incidentally after splenic artery embolization for thrombocytopenia, and concurrent with UGI bleed and increasing abdominal pain. This thrombosis was observed originally as long ago as 2016, and over course she only had a few weeks of lovenox last summer, stopped due to thrombocytopenia. She should have some type of anticoagulation optimally to prevent progression, and progression into the mesenteric vein, especially as this has become larger over course (though oddly it is still nonocclusive). Willam concerned that she could have more thrombus there than we can see on CTA, and MRI is more sensitive for detecting this detail. This is especially the case given her abdominal pain, though not surethis thrombus is the cause of that. No s/sx SMV thrombosis fortunately, but duodenal ischemia couldbe occurring too. Her thrombocytopenia is resolved s/p splenic embolization. Her hypercoagulable state is secondary to liver cirrhosis presumably from NAFLD. I reviewed this with her (she didn't seem to know why she has cirrhosis). Anemia: hgb recovering from GI blood loss. No evidence of iron deficiency. Coagulopathy: protime has been slightly up and stable over course. Hypercoagulable state: I'd like to figure out the status of her anticogaulant function and be more definitive ruling out DIC and antiphospholipid syndrome before resuming lovenox Patient Active Problem List Diagnosis Date Noted ??? Peptic ulcer disease with hemorrhage 10/26/2021 EGD March 2021:esophagitis and pyloric channel ulcer. Oct 08, 2021: 9-day admission w/ 3 separate EGDs and several units RBC tx. Large posterior duodenalulcer and pyloric ulcer extending into duodenal bulb +mild portal gastropathy as likely sources. RxBID Protonix for 3 months then daily. ??? Portal vein thrombosis 04/23/2021 -04/23/21: Nonocclusive [...] congestion as asource of her pain. ??? Other cirrhosis of liver (HCC) 09/30/2017 -NAFLD related cirrhosis with history of decompensation, chronic portal htn, hepatic encephalopathy, small esophageal varices on EGD in 2019, thrombocytopenia/hypersplenism, portal gastropathy -s/p partial splenic embolization (09/28/21) -portal vein thrombosis -Hep C Past provider: Dr. Ijeoma Smith, GI Department in [facility] for long-standing decompensated liver cirrhosis ??? Thrombocytopenia (HCC-CMS) (HCC) 10/26/2021 Took lusutrombopag [...] (HCC) 10/01/2021 Done Sep 2021 for thrombocytopenia ??? Hypersplenism 09/28/2021 ??? Moderate protein-calorie malnutrition (HCC-CMS) ([facility]) 07/02/2021 ??? Fluid overload 07/01/2021 ??? Frequent falls 06/29/2021 ??? COPD (chronic obstructive pulmonary disease) ([facility]) ([facility]) 01/21/2021 ??? Left ureteral stone 12/03/2020 ??? HUEY (obstructive sleep apnea) 04/26/2020 ??? Dyspnea 04/26/2020 ??? Partial small bowel obstruction (HCC-CMS) ([facility]) 11/27/2019 ??? Obesity, Class II, BMI 35-39.9 09/30/2017 Lost about 80 lbs over last 2 years ??? Hypothyroidism 09/30/2017 ??? Chronic pain syndrome 09/09/2017 Intolerant of Lyrica, gabapentin, Robaxin. Previously on oxycodone, now on Dilaudid with history of renal insufficiency. Reportedly unable to take acetaminophen due to thrombocytopenia history. Unable to take any forms of NSAID due to renal insufficiency history. ??? Splenic vein thrombosis 08/24/2017 ??? Drug-seeking behavior Per Dr Amelia Tijerina and notes from [facility] patient misconstrued information to several providers about multiple concurrent opiate prescription. -IR embolization 09/28/21 for thrombocytopenia. Counts raised from 30s to 200K ??? Abdominal wall hernia 11/05/2016 ??? Allergic rhinitis 11/05/2016 ??? Pancytopenia ([facility]) 07/18/2015 -bone marrow biopsy at [facility] in 2012: maturing trilineage hematopoiesis with no underlying hematopoietic abnormalities ??? Mild persistent asthma without complication 07/18/2015 ??? Nephrolithiasis 11/10/2020 Added automatically from request for surgery [id number] Plan: -resume lovenox 40 mg/d while watching CBC Q10-14d. She will check to see that her current supply is not and my nurse will work with her to get refills as needed. I contacted Dr. Campbell and he was comfortable with this Rx. -labs today additional to what was ordered on her way in: protime, fibrinogen, d-dimer, factor VIII, protein C, protein S, antithrombin, LA cascade, B2 gp 1 an, cardiolipin ab, and will draw one citrate tube to spin freeze and hold in case it is needed. -try to get MRI of the liver to study the portal venous system better. She has prosthetic hips so we will need to see if this is possible. If not, might try vascular ultrasound but suspect that mightnot be better than the CT. -She should get back in with Dr. Moseley. She is waiting to hear from their office about a follow up plan post hospital. I suggested she call them if she doesn't hear this week. -I educated her in detail on the plans and assessments. She didn't understand the cause of her cirrhosis as well so I tried to explain this to her. -return in November and by that time we will determine whther to increase anticoagulant dose intensity or keep to prophylaxis. HPI: I am seeing this pt for portal vein thrombosis and UGI bleeding after she was seen in the past in our clinic by Dr. Clay for pancytopenia/thrombocytopenia related to cirrhosis. I reviewed her chart for recent events to synthesize the problem list above, sourav outlines the recent history. Basically she had nonocclusive PVT from the spring not treated with anticoagulation gabriela to thrombocytopenia. The thrombocytopenia is not resolved after splenic embolization, but she had increased PVT after this procedure. She had low platelets for several years. Never has had abnormal bleeding except GI bleeding. This was the first time she is aware she had GI bleeding. No black stools or ongoing bleeding or vomiting but has felt nauseous a few times. She has ongoing epigastric to RUQ pain 'where the blood clot is.' she thinks the pain has gotten a little worse since she left the hospital. t occasionally radiates around to the back. This pain was present prior to the splenic embolization. She has ongoing fatigue - like she anticipates this visit will totally wipe her out. Sleeping isn't great. Appetite not great. She doesn't have a set schedule to eat. Mostly eats dinner - with her housemates. She had knee replacement both knees Past Medical History: Patient has a past medical history of Anemia, Anxiety, Asthma, Bursitis, C. difficile colitis (07/25/2015), Cirrhosis of liver (HCC-CMS) (HCC), Community acquired pneumonia, COPD exacerbation (HCC-CMS) (HCC) (04/26/2020), Depression, Drug-seeking behavior, Environmental allergies, Exercise involving walking, GERD (gastroesophageal reflux disease), Hemorrhagic disorder (HCC-CMS) ([facility]), History of kidney stones, Hypersplenism syndrome, Hypothyroidism, Joint replaced (1999), QUIROZ (nonalcoholic steatohepatitis), Pancytopenia ([facility]), Rheumatoid arthritis, Sleep apnea, Thrombocytopenia (HCC-CMS) ([facility]), and Thyroid disease. Past Surgical History: Patient has a past surgical history that includes hernia repair; Appendectomy; Tonsillectomy; Cholecystectomy; Hysterectomy; knee surgery (Bilateral); joint replacement (Bilateral); Wrist surgery (Right); Gastric fundoplication (1989); bone marrow biopsy; and Cystoscopy (12/03/2020). Family History: Patient's Family History Problem Relation Age of Onset [...] No Known Daughter ??? No Known Son 2 daughters without complications. Social History: Patient reports that she quit smoking about 2 months ago. Her smoking use included cigarettes. She has a 8.75 pack-year smoking history. She has never used smokeless tobacco. She reports previous drug use. Drug: Marijuana. She reports that she does not drink alcohol. Social History Social History Narrative Rents a room from friends in [place] and lives there with her dog. She is disabled. 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 albuterol 90 mcg/actuation inhaler ??? furosemide (LASIX) 20 mg tablet ??? HYDROmorphone (DILAUDID) 2 mg tablet ??? levothyroxine (SYNTHROID) 25 mcg tablet ??? mupirocin (BACTROBAN) 2 % ointment ??? ondansetron (ZOFRAN-ODT) 4 mg disintegrating tablet ??? OXYGEN-AIR DELIVERY SYSTEMS MISC ??? [...] and reglan [metoclopramide hcl]. Physical Exam: Vitals: 10/26/21 1258 BP: 123/60 Pulse: 85 Resp: 16 Temp: 36.6 ??C (97.8 ??F) TempSrc: Skin SpO2: 96% Weight: 89.8 kg (197 lb 14.4 oz) Height: 161 cm (63.39) Estimated body mass index is 34.63 kg/m?? as calculated from the following: Height as of this encounter: 161 cm (63.39). Weight as of this encounter: 89.8 kg (197 lb 14.4 oz). Gen: Well developed, well nourished obese woman; No acute distress, alert and oriented times three;conversing appropriately Head/Eyes/Neck/Throat: Atraumatic; Extra ocular movements intact, Pupils equally round and reactiveto light, no scleral icterus; Oropharynx benign; Neck supple with full range of motion, trachea midline, no thyromegaly Lymph: No lymphadenopathy of cervical, clavicular, axillary region Pulm: Clear to auscultation, No wheeze, good air movement throughout CV: Regular rate and rhythm, no murmurs, no carotid bruits Abd: Soft, non-tender, non-distended, no organomegaly, positive active bowel sounds, No rebound/guarding : Deferred MSK: Equal strength throughout, patient witnessed ambulating well in hallway Neuro: No focal deficits, Moving all extremities Skin: No rashes Legs: Right: No edema, cords, hemosiderin deposits, varicose veins, erythema or tenderness. Good distal pulses. Left: No edema, cords, hemosiderin deposits, varicose veins, erythema or tenderness. Good distal pulses. Labs: Complete Blood Count Lab Results Component Value Date WBC 5.40 10/26/2021 WBC 4.60 10/19/2021 WBC 5.34 10/17/2021 RBC 3.51 (L) 10/26/2021 HGB 9.8 (L) 10/26/2021 HGB 9.2 (L) 10/19/2021 HGB 9.1 (L) 10/17/2021 HCT 30.7 (L) 10/26/2021 MCV 88 10/26/2021 PLT 158 10/26/2021 PLT 170 10/19/2021 PLT 181 10/17/2021 MPV 9.4 (L) 10/26/2021 RDWCV 15.8 (H) 10/26/2021 Lab Results Component Value Date DIFFTYPE Auto 10/08/2021 NEUTROABS 10.06 (H) 10/08/2021 ABSBAND 0.02 04/23/2019 LYMPHSABS 0.39 (L) 10/08/2021 MONOSABS 1.18 (H) 10/08/2021 EOSABS 0.03 10/08/2021 BASOSABS 0.02 08/29/2019 MYELOABS 0.02 10/21/2018 Anemia Workup (if applicable) Lab Results Component Value Date IRON 85 07/13/2019 TIBC 270 07/13/2019 FERRITIN 179 10/19/2021 FOLATE 8.1 10/19/2021 [id number] 497 10/19/2021 Chemistries Lab Results Component Value Date NA 137 10/17/2021 K 3.5 10/17/2021 CL 100 10/17/2021 CO2 30 10/17/2021 BUN 13 10/17/2021 CREATININE 0.84 10/17/2021 CALCGFR 75 10/17/2021 CALCIUM 8.6 10/17/2021 CALCCA 9.2 07/28/2021 MG 1.9 10/12/2021 LDH 320 06/28/2019 ALKPHOS 100 10/17/2021 AST 38 10/17/2021 ALT 16 10/17/2021 GGT 47 (H) 11/09/2018 CONJBILI 0.0 07/14/2021 UNCONJBILI 0.5 07/14/2021 BILIRUBIN Neg 09/20/2017 TBIL 0.8 10/17/2021 TP 6.6 10/17/2021 LABALBU 3.1 (L) 10/17/2021 AGRATIO 0.9 (L) 10/17/2021 LIPASE 43 07/16/2021 Cardiovascular No results found for: SCRP No results found for: CHOL, LDLBASE, CHOLHDL, HDL, HDLC, LPA, LIPOA, TRIG Lab Results Component Value Date TROPONINI <0.034 07/30/2021 Thrombosis Panel Lab Results Component Value Date ABO O 10/13/2021 PROTIME 15.3 (H) 10/17/2021 INR 1.3 (H) 10/17/2021 INR 1.3 (H) 10/16/2021 PTT 29 10/17/2021 DDIMER 1,084 (H) 04/13/2021 DDIMER 693 (H) 04/19/202009/22: Thrombelastograph results show decreased value for the angle and the MA. ??This finding is suggestive of thrombocytopenia or platelet dysfunction Imaging: US LOWER VENOUS DUPLEX Interpretation Summary ??? No evidence of deep or superficial venous thrombosis in the right lower extremity. ??? No evidence of deep or superficial venous thrombosis in the left lower extremity. CT ANGIO ABDOMEN PELVIS Narrative CT ANGIO ABDOMEN PELVIS 10/08/2021 4:05 PM Clinical History/Comments: GI bleed Comparison: CT abdomen and pelvis on 10/01/2021 Technique: CT angiography of the abdomen and pelvis was performed with the administration of 100 cc intravenous contrast. Precontrast, arterial, and venous phase images were acquired. Coronal and sagittal multiplanar reformations, maximal intensity projection as well as 3-D reconstructions, were also performed. I have personally reviewed and adjusted the images for the 3D rendering on an independent workstation, as necessary, prior to interpretation. Findings: Vasculature: No extraluminal contrast to suggest active arterial extravasation. The abdominal aorta is normal in caliber without aneurysm, occlusion or dissection. Mild calcified plaques are present in the aorta and branches. Again noted is prior embolization of the splenic artery. The celiac trunk and distal branches are otherwise patent. The SMA and SHAVON are patent. Single right and duplicated left renal arteries are patent. Interval increase in nonocclusive thrombus in the main portal vein. The portal venous system appears dilated. Multiple collateral vessels are noted anteriorly.. The The major systemic venous structures are unremarkable.. Lower chest: Linear scarring or atelectasis at the left lung base. Hepatobiliary: Redemonstrated cirrhotic configuration of liver. No focal hepatic lesions. Prior cholecystectomy. Unchanged prominent extrahepatic biliary tree, presumed to be post cholecystectomy state. Spleen, pancreas, adrenal glands: Redemonstrated infarcted spleen involving greater than 75% of theparenchyma status post splenic artery embolization. Improved fat stranding around the spleen. Pancreas and adrenal glands are unremarkable. Kidneys, ureters, bladder: Both kidneys enhance symmetrically. Renal mass or hydroureteronephrosis.Both ureters are normal in caliber. The urinary bladder is unremarkable. Uterus, ovaries: Prior hysterectomy. No adnexal mass. Bowel: No bowel obstruction. The wall of the first and second portions of the duodenum appear thickened with a possible ulcer along the medial aspect of the first portion of the duodenum (series 604,image #[id number]). Scattered colonic diverticulosis. Peritoneal cavity / Subperitoneal space: Slight interval increase in small amount of simple perisplenic fluid. Small amount of free fluid along the paracolic gutters. No free air. Lymph nodes: No pathologically enlarged lymph nodes. Abdominal wall: Prior ventral hernia repair in the right upper quadrant. No bowel containing hernia. Musculoskeletal: No compression deformities or concerning osseous lesions. Degenerative changes arepresent in the lumbar spine and both hips. Impression 1. No evidence of active arterial extravasation to suggest active hemorrhage. 2. Interval increase in nonocclusive thrombus in the main portal vein. 3. New wall thickening of the first and second portions of the duodenum which could be due to increased portal venous thrombus or hypertension, or possible ulcer. 4. 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 5. Liver cirrhosis with stigmata of portal venous hypertension. These findings were discussed by phone with Dr. Cai by Dr. Dawson on 10/08/2021 5:34 PM. I have personally reviewed the images and the above interpretation and agree with the findings. CT ABDOMEN PELVIS W CONTRAST 11/26/2019 12:18 AM ?? Signs and Symptoms/Comments: Epigastric/back pain. ?? Technique: CT of the abdomen and pelvis was performed following the administration intravenous contrast; coronal and sagittal multiplanar reconstructions generated. ?? Comparison: CT renal colic 10/21/2019. August 24, 2017 ?? Findings: Lower chest: For findings within the chest, refer to CTA of the chest obtained concurrently. ?? Hepatobiliary: Nodular hepatic contour consistent with history of cirrhosis. No focal hepatic lesion identified. Status post cholecystectomy. Biliary tree within normal limits. ?? Spleen, pancreas, adrenal glands: The spleen is markedly enlarged. The pancreas is unremarkable. Nopancreatic ductal dilatation. Tiny nodule in the left adrenal gland is unchanged from one year prior. ?? Kidneys, ureters, bladder: The kidneys enhance symmetrically. No hydronephrosis, renal calculi, or concerning renal lesions are seen. Urinary bladder is unremarkable. ?? Uterus, ovaries: The uterus is surgically absent. No adnexal masses are seen. ?? Bowel: There is wall thickening and fat stranding involving primarily the cecum and ascending colon. There is mild distention of the small bowel with fecalization of contents in the distal ileum, with the ileum is mildly asymmetrically thick-walled. No discrete transition point is seen. Numerous div erticuli are seen in the sigmoid colon. Preserved bowel enhancement. ?? Peritoneal cavity / Subperitoneal space: No free air or drainable collection. Small amount of ascites. ?? Lymphovascular: Vascular calcifications are present in the abdominal aorta. Chronic thrombus from known prior portal venous thrombosis is present at the elizabeth splenic confluence, decreased in volume compared to 2017 CT. There is enlargement of the splenic vein and the intrahepatic portal veins. ?? Abdominal wall: Hernia repair mesh is seen in the right anterior abdominal wall. Multiple surgical clips are seen at the midline. No bowel containing hernias are seen. ?? Musculoskeletal: No concerning osseous lesion. Multilevel degenerative disc disease and facet arthropathy. ?? Manager Secondary: No additional finding. ?? IMPRESSION 1. Mild thickening of the terminal ileum with evidence of low-grade partial small bowel obstruction. Etiology of the ileal findings may be inflammatory or infectious. 2. Cirrhotic configuration of the liver with stigmata of portal hypertension including marked splenomegaly and portal colopathy. 3. Decreased size of the chronic portal venous thrombus. 4. Otherwise as above. Aug 2017 CT: Lymphovascular: Since the prior contrast-enhanced scan in February, there has been interval increase in the amount of partially occlusive thrombus within the splenic vein, which now extends to the level of the portal splenic confluence and into the proximal main portal vein (axial 104, axial 96). This thrombus is not definitively seen to extend down into the mesenteric veins. CT ABDOMEN, PELVIS W CONTRAST 02/21/2017 8:52 PM Signs and Symptoms/Comments: pt with epigastric pain , prior ct without contrast showed possible duodenitis but did not have contrast, pt with low wbc, neutropenic, and low plt, recent falls Technique: CT of the abdomen and pelvis was performed following the administration intravenous contrast; coronal and sagittal multiplanar reconstructions generated. Comparison: CT renal colic 01/25/2017, CT abdomen pelvis 01/03/2017 Findings: Lower chest: Areas of scarring versus subsegmental atelectasis in the lung bases. Coronary atherosclerosis. Hepatobiliary: Mild intra-and extrahepatic biliary ductal dilatation with dilation of the common bile duct up to 9 mm which is likely within normal limits for this postcholecystectomy patient. Nodular hepatic surface contour consistent with a history of cirrhosis. There is a tiny enhancing lesion in the dome the liver which is stable when compared to the CT from January 03, 2017. Spleen, pancreas, adrenal glands: Splenomegaly. Stable peripheral hypodensity in the spleen. Nonspecific stranding around the head of the pancreas. Normal uniform enhancement of the pancreas. No pancreatic ductal dilatation. Normal adrenal glands. Kidneys, ureters, bladder: Kidneys enhance symmetrically. No concerning renal masses, perinephric collections, or urinary tract calculi. Urinary bladder is normal. Uterus, ovaries: Post hysterectomy. No concerning adnexal masses. Bowel: Nonspecific stranding in the midportion of the mesentery from approximately axial image #[id number]. It does not appear to be centered over any particular organ. No definitive thickening of the duodenum is identified. Wall thickness in the duodenum may be secondary to underdistention given lack of enteric contrast. No obstruction. Diverticulosis. Post appendectomy. Peritoneal cavity / Subperitoneal space: No free fluid or free air. Lymphovascular: Findings of portal hypertension with dilation of the portal and splenic veins with hypodense thrombus seen in the splenic vein which does not appear occlusive and has slightly decreased from 01/03/2017. Axial image 91 for example. Abdominal wall: Prior anterior abdominal wall mesh hernia repair. No bowel containing hernia. Musculoskeletal: Symmetric musculature. Multilevel degenerative disease in the thoracolumbar spine. Slight levoscoliotic curvature centered at L3-L4. Impression: 1. Cirrhosis and portal hypertension with hepatosplenomegaly. 2. 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 Nonspecific stranding within the mid portion of the mesentery. It does not appear to be centered over any particular organ. Correlation with lipase levels could be obtained to exclude pancreatitis. 4 Prior cholecystectomy, hysterectomy, appendectomy, mesh abdominal wall hernia repair 5. Stable small enhancing lesion in the dome of the liver. 12/2016: Impression: 1. Large nonocclusive thrombus in the splenic vein near the midline, likely acute or subacute.. 2. Cirrhosis and evidence of portal hypertension, splenomegaly. 3. Cholecystectomy. 4. Colonic diverticulosis without evidence of diverticulitis. 5. Hysterectomy. 6. Atherosclerosis. 7. Anterior abdominal wall hernia repair. 8. Multilevel degenerative disease of the spine as described above. 2015 CT scan: no thrombosis TRANSTHORACIC ECHO (TTE) COMPLETE Interpretation Summary ??? Left Ventricle: Left ventricular systolic function was normal with an ejection fraction of 60-65%. ??? Left Ventricle: Left ventricular diastolic parameters were normal. ??? Left Ventricle: Left ventricular wall motion was normal; there were no regional wall motion abnormalities. ??? Right Ventricle: Right ventricular systolic function was normal. I spent 90 minutes related to this patient's care today, which includes time with the patient, timereviewing medical records and reviewing imaging reports and laboratory results, time updating the chart information, and time composing this note. Thank you for this interesting consultation. Please contact my office with questions at . Dana Padilla MD, MSc sausage maker Director, Thrombosis and Hemostasis Program cc: Emigdio Moseley documented in this encounter Plan of Treatment Upcoming Encounters Date Type Department Care Team (Late st Contact Info) Description 01/04/2025 13:00 EST Office Visit [facility] Ophthalmology - [address] [phone] Gagandeep Rome MD [address] [facility], Level 5 [place] [phone] 02/11/2025 13:30 EDT Telemedicine [facility] Hematology & Oncology - [address] [phone] Dana Padilla MD [address] [facility], Level 2 [place] [address] documented as of this encounter Results * (ABNORMAL) D-DIMER (10/27/2021 14:20 EST) D-Dimer 5,761(H) <=230 ng/mL DDU 10/27/2021 15:58 EST [facility] Blood VENOUS BLOOD / Unknown Venipuncture / Unknown 10/27/2021 14:20 EST 10/27/2021 14:20 EST Narrative [facility] - 10/27/2021 15:58 EST Cutoff value for the exclusion of DVT and PE: 230 ng/mL D-dimer units. Any use of the age-adjusted cutoff value is a post-analytic modification of this FDA-approved test and is considered off-label use of the test result. [facility] laboratory does not have literature to support the validity of an age-adjusted cutoff for our specific assay. us Dana Padilla MD HEMATOLOGY & PF4 ORDERABLES Pricila mccord Result [facility] [address] [place] [id number] * FIBRINOGEN (10/27/2021 14:20 EST) Fibrinogen 251 171 - 384 mg/dL 10/27/2021 15:29 EST [facility] Blood VENOUS BLOOD / Unknown Venipuncture / Unknown 10/27/2021 14:20 EST 10/27/2021 14:20 EST Dana Padilla MD HEMATOLOGY & PF4 ORDERABLES Pricila l Result Performing Organization Address [facility]/ZIP Co de Phone Number [facility] [address] [place] [address] * PROTEIN S ACTIVITY (10/27/2021 14:20 EST) Protein S Activity 96 64 - 147 % 2020 11:34 EST [facility] Comment: a.Acquired Protein S deficiencies are associated with vitamin K antagonists, acute thrombotic events, , vitamin K deficiency, L-aspariginase treatment and inflammatory syndrome. Deficiencies may or may not be present in liver disease and DIC. b.Results may be affected by plasma heparin levels greater than 1.6 U/mL for UFH or greater than 1.8 U/mL for LMWH. c.Results may be overestimated in the presence of direct Xa inhibitors (rivaroxaban, apixaban, edoxaban) and direct thrombin inhibitors (dabigatran, argatroban, bivalirudin). d.Acute illness and/or thrombosis may influence test results in an unpredictable manner, therefore results should be interpreted with caution in this setting. e.Age and hormonal status may affect the normal range for females. Blood VENOUS BLOOD / Unknown Venipuncture / Unknown 10/27/2021 14:20 EST 10/27/2021 14:20 EST Dana Padilla MD HEMATOLOGY & PF4 ORDERABLES Pricila l Result Performing Organization Address City/[facility]/ZIP Co de Phone Number [facility] [address] [place] [address] * (ABNORMAL) PROTEIN C ACTIVITY (10/27/2021 14:20 EST) Protein C Clot 59(L) 71 - 199 % 10/28/2021 11:49 EST [facility] Comment: a. Acquired Protein C deficiencies are associated with vitamin K antagonists, acute thrombotic events, vitamin K deficiency, liver disease and DIC. b. Results may be affected by plasma heparin levels greater than 1.5 U/mL for UFH and 0.8 for LMWH. c. Results may be overestimated in the presence of direct Xa inhibitors (rivaroxaban, apixaban, edoxaban) and direct thrombin inhibitors (dabigatran, argatroban, bivalirudin). d. Acute illness and/or thrombosis may influence test results in an unpredictable manner; therefore, results should be interpreted with caution in this setting. Blood VENOUS BLOOD / Unknown Venipuncture / Unknown 10/27/2021 14:20 EST 10/27/2021 14:20 EST [facility] - 10/28/2021 11:49 EST Sample retested, result confirmed us Dana Padilla MD HEMATOLOGY & PF4 ORDERABLES Pricila l Result Performing Organization Address [facility] de Phone Number [facility] [address] [place] [address] * (ABNORMAL) PROTIME (10/27/2021 14:20 EST) [facility] I.N.R. 1.3(H) 0.9 - 1.1 Ratio 10/27/2021 15:29 [facility] Pro Time 15.0(H) 10.4 - 12.6 secs 10/27/2021 15:29 EST [facility] Blood VENOUS BLOOD / Unknown Venipuncture / Unknown 10/27/2021 14:20 EST 10/27/2021 14:20 EST [facility] - 10/27/2021 15:29 EST Moderate Intensity Coumadin INR = 2.0-3.0 Adjustments in anticoagulant therapy dose should be based on the INR and NOT on the Protime. us Dana Padilla MD HEMATOLOGY & PF4 ORDERABLES Pricila l Result Performing Organization Address [facility] Co de Phone Number [facility] [address] [place] [address] * BETA 2 GLYCOPROTEIN ANTIBODY PANEL (10/27/2021 14:19 EST) [facility] Beta 2 GP1 Ab IgG, S <9.4 <15.0 (Negative ) U/mL 10/29/2021 11:20 EST [facility] Beta 2 GP1 Ab IgM, S <9.4 <15.0 (Negative ) U/mL 10/29/2021 11:20 EST [facility] Comment: Test Performed by: [place] [address] [employer]: Jesus Stanford M.D. Ph.D.; CLIA# [id number] Blood VENOUS BLOOD / Unknown Venipuncture / Unknown 10/27/2021 14:19 EST 10/27/2021 14:20 EST Dana Padilla MD IMMUNOLOGY AND SEROLOGY ORDERABL ES Final Result Performing Organization Address [facility] Co de Phone Number [facility] [address] [phone] * PHOSPHOLIPID ANTIBODY (10/27/2021 14:19 EST) Pathologist [facility] Phospholipid IgG (Cardiolipin) Ab, S <9.4 <15.0 (Negative ) GPL 10/28/2021 19:40 EST [facility] Comment: Test Performed by: [facility] [place] [address] [employer]: Jesus Stanford M.D. Ph.D.; CLIA# [id number] Phospholipid IgM (Cardiolipin) Ab, S <9.4 <15.0 (Negative ) MPL 10/28/2021 19:40 EST [facility] Blood VENOUS BLOOD / Unknown Venipuncture / Unknown 10/27/2021 14:19 EST 10/27/2021 14:20 EST us Dana Padilla MD IMMUNOLOGY AND SEROLOGY ORDERABL ES Final Result Performing Organization Address [facility] Co de Phone Number [facility] [address] [place] [address] * LUPUS ANTICOAGULANT CASCADE (10/27/2021 14:19 EST) LA [place] Summary Negative for detection of lupus anticoagulant (LA). ??Where clinical suspicion for antiphospholipid syndrome is high, it may be appropriate ??to perform alternative LA or aPL assays. ?? The laboratory criteria for Antiphospholipid Syndrome (aPL) include positive testing for one of the following on 2 or more occasions, at least 12 weeks apart: 1. Lupus anticoagulant (LA), 2. Cardiolipin antibodies (IgG or IgM) in medium or high titer, 3. Beta2-glycoprotein 1 antibodies (IgG or IgM) in medium or high titer. Solid-phase assays for Beta2 glycoprotein 1 (B2GP1) and Cardiolipin antibodies are recommended when evaluating a patient for antiphospholipid syndrome. ??Correlation with those results is advised. Jordan Kauffman MD 10/29/21 14:46 10/29/2021 14:47 EST [facility] Dilute Viper Venom 38.5 31.9 - 47.0 secs 10/29/2021 14:47 EST [facility] Silica Clotting Time 39.6 30.2 - 48.4 secs 10/29/2021 14:47 EST [facility] Blood VENOUS BLOOD / Unknown Venipuncture / Unknown 10/27/2021 14:19 EST 10/27/2021 14:20 EST Dana Padilla MD HEMATOLOGY & PF4 ORDERABLES Pricila l Result Performing Organization Address [facility] de Phone Number [facility] [address] [place] [address] * (ABNORMAL) FACTOR 8 ASSAY (10/27/2021 14:19 EST) [facility] Factor 8 Assay 188(H) 50 - 150 % 10/28/2021 8:28 EST [facility] Comment:This FVIII activity is clot-based, and will overestimate the endogenous factor activity in the presence of emicizumab (Hemlibra). Blood VENOUS BLOOD / Unknown Venipuncture / Unknown 10/27/2021 14:19 EST 10/27/2021 14:20 EST Dana Padilla MD HEMATOLOGY & PF4 ORDERABLES Pricila l Result Performing Organization Address [facility] Co de Phone Number [facility] [address] [place] [address] * (ABNORMAL) ANTITHROMBIN, FUNCTIONAL (10/27/2021 14:19 EST) Antithrombin, Functional 69(L) 85 - 125 % 10/28/2021 8:27 EST [facility] Comment:Results may be overe stimated in the presence of DOACs such as apixaban, edoxaban, and rivaroxaban, direct thrombin inhibitors such as dabigatran, Hirudin (Refludan) and Argatroban (Novastan). Acute illness and/or thrombosis may influence test results in an unpredictable manner, therefore results should be interpreted with caution in this setting. Blood VENOUS BLOOD / Unknown Venipuncture / Unknown 10/27/2021 14:19 EST 10/27/2021 14:20 EST us Dana Padilla MD HEMATOLOGY & PF4 ORDERABLES Pricila mccord Result [facility] [address] [place] [address] documented in this encounter Visit Diagnoses Diagnosis Secondary hypercoagulable state (HCC-CMS)- Primary Secondary hypercoagulable state Primary hypercoagulable state (HCC-CMS) Primary hypercoagulable state Other cirrhosis of liver (HCC-CMS) Portal vein thrombosis Upper GI bleed Hemorrhage of gastrointestinal tract, unspecified documented in this encounter Care Teams Development Editor Relationship Specialty Start Date End Date Emigdio Veronica MD [address] [place] [phone] PCP - General Internal Medicine - Primary Care 05/22/20 02/21/24 Starr Paige MD [address] [place] [phone] Hematology 10/08/21 06/09/22 documented as of this encounter
--- OUTSIDE RECORDS SUMMARY | 2024-11-22 17:09 | XMS_ITS | Encounter Summary ---
Author Organization [facility] Address [address] [place] [address] Care Team Providers Care Yard Crane Operator Name Role Phone Emigdio Veronica MD Primary Care Provider + Starr Paige MD Unavailable [phone] Encounter Details Date Type Department Care Team (Late st Contact Info) Description 10/26/2021 Orders Only [facility] - [facility] [address] [place] [address] Maritza Milelr, RN [address] [place] [address] Portal vein thrombosis (Primary Dx); Superior mesenteric vein thrombosis (HCC-CMS) (HCC) Social History Tobacco Use Types [...] 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 Not on [...] Office Visit [facility] Ophthalmology - [address] [phone] Gagandeep Rome MD [address] [place] [address], [facility] [address] [place] [phone] 02/11/2025 13:30 EDT Telemedicine [facility] Hematology & Oncology - [address] [phone] Dana Padilla MD [address] [place] [address], [facility] [address] [place] [phone] documented as of this encounter Visit Diagnoses Diagnosis Portal vein thrombosis- Primary Superior mesenteric vein thrombosis (HCC-CMS) Acute vascular insufficiency of intestine documented in this encounter Care Teams Yard Crane Operator Relationship Specialty Start Date End Date Emigdio Veronica MD [address] [place] [phone] PCP - General Internal Medicine - Primary Care 05/22/20 02/21/24 Starr Paige MD [address] [place] [phone] Hematology 10/08/21 06/09/22 documented as of this encounter
--- OUTSIDE RECORDS SUMMARY | 2024-11-22 17:09 | XMS_ITS | Encounter Summary ---
Author Organization [facility] Address [address] [place] [address] Care Team Providers Care Liquor Maker Name Role Phone Emigdio Veronica MD Primary Care Provider + Starr Paige MD Unavailable [phone] Reason for Visit * Reason Comments Hospital Discharge Follow Up ADMISSION F OR HYPERCOAGULABLE STATE, WITH GI BLEED Edema Encounter Details Date Type Department Care Team (Latest Contact Info) Description 11/11/2021 9:45 EST Office Visit [facility] Adult Primary Care - [place] [address] [place] [address] Socttie Campuzano PA-C [address] [place] [phone] Gastrointestinal hemorrhage, unspecified gastrointestinal hemorrhage type (Primary Dx); Thrombocytopenia (HCC-CMS) (HCC) Social History [...] Industry Job Start Date Job End Date 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 Not on file Not o n file documented as of this encounter Last Filed Vital Signs Vital Sign Reading Time Taken Comments Blood Pressure 110/61 11/11/2021 0959 EST Pulse 97 11/11/2021 0959 EST Temperature 36.8 ??C (98.2 ??F) 11/11/2021 0 959 EST Respiratory Rate 18 11/11/2021 0959 EST after ambulation Oxygen Saturation - - Inhaled Oxygen Concentration - - Weight 92.5 kg (204 lb) 11/11/2021 0959 EST with boots and hoodie Height - - Body Mass Index 36.14 11/04/2021 1042 EST documented in this encounter [...] * Patient Instructions* Melina Low LPN - 11/11/2021 9:45 EST Quitting smoking Stopping smoking is the [...] with a trained counselor. Tobacco Counseling in [facility] offers free counseling services to residents who are ready to cut back or quit using tobacco. Services include: phone coaching (4-844-LZLL-NOW), online tools and support for those who would like to make changes on their own (www.[employer].Weeve), as well as in-person group workshops. Free nicotine replacement therapy is available through all of these resources. To learn more about your options visit www.[employer].org or call 5-369-GPAO-NOW ( ). To speak with an in-person tobacco counselor in [facility] call, [phone]. [place] Resident, please visit: [email or web address]/ I hope you quit smoking. I think it's the best thing you can do for your health. Please call our office if you have any questions. documented in this encounter Ordered Prescriptions Prescription Sig Dispense Quantity Refills Last Filled Start Date End Date naloxone (NARCAN) 4 mg/actuation nasal spray 0.1 mL by nasal route as needed for Opioid Reversal. Repeat every 2-3 minutes if not effective and overdose is suspected. (spray is harmless in excess). 1 Each 1 11/11/2021 ALPRAZolam (XANAX) 0.25 mg tablet Take 1 at bedtime for sleep. If 1 does not cause excessive sedation or dizziness then you can take 2 at bedtime. 15 Tablet 11/11/2021 2 documented in this encounter Progress Notes * Scottie Campuzano PA-C - 11/11/2021 0945 EST Subjective: Patient ID: Tara Yun is an 61 y.o. female. Chief Complaint Patient presents with ??? Hospital Discharge Follow Up ADMISSION FOR HYPERCOAGULABLE STATE, WITH GI BLEED ??? Edema FINA Avery is following up after an admission for a GI bleed. I reviewed the discharge summary. She says she is still recovering from the hospitalization--- she says it was really quite exhausting for her. She does think she has turned the corner. She is trying to catch up on her rest She is taking her medications as directed. Patient Active Problem List Diagnosis ??? Pancytopenia [...] ??? Thrombocytopenia (HCC-CMS) (HCC) ??? Abdominal pain Outpatient Medications Marked as Taking for the 11/11/21 encounter (Office Visit) with Scottie Campuzano PA-C Medication Sig Dispense Refill ??? albuterol 90 mcg/actuation inhaler Inhale 1-2 Puffs as directed every 4 hours as needed for Wheezing. 1 Inhaler 0 ??? enoxaparin (LOVENOX) 60 mg/0.6 mL injection Inject 60 mg into the skin daily. 18 mL 2 ??? furosemide (LASIX) 20 mg tablet Take 1 every morning for fluid in legs; if swelling is worse than usual then take 2 every morning. Max daily dose is 40 mg per day. 180 Tablet 1 ??? HYDROmorphone (DILAUDID) 2 mg tablet Take 1 Tablet by mouth every 6 hours as needed for up to 28 days for Pain. Daily Max: 8 mg 84 Tablet 0 ??? levothyroxine (SYNTHROID) 25 mcg tablet Take 1 Tab by mouth daily. Unknown dose (Patient takingdifferently: Take 25 mcg by mouth daily before breakfast. ) 90 Tab 3 ??? mupirocin (BACTROBAN) 2 % ointment Apply 3 times a day for 1 week for painful sore on lower right leg. 30 g 0 ??? ondansetron (ZOFRAN-ODT) 4 mg disintegrating tablet Take 1 Tablet by mouth every 4 to 6 hours as needed for Nausea. 21 Tablet 0 ??? OXYGEN-AIR DELIVERY SYSTEMS MISC 2 L by misc (non-drug; combo route) route at bedtime. ??? pantoprazole (PROTONIX) 40 mg tablet Take 1 Tablet by mouth 2 times daily. 30 Tablet 3 ??? sertraline (ZOLOFT) 50 mg tablet TAKE 1 TABLET BY MOUTH EVERY DAY 90 Tablet 1 ??? spironolactone (ALDACTONE) 50 mg tablet TAKE 1 TABLET BY MOUTH EVERY DAY 90 Tablet 1 ??? sucralfate (CARAFATE) 100 mg/mL suspension Take 10 mL by mouth 4 times daily (before meals and at bedtime). 420 mL 2 ??? SYMBICORT 160-4.5 mcg/actuation HFA aerosol inhaler inhaler INHALE 2 PUFFS DIRECTED DAILY. 10.2 Each 1 ??? traZODone (DESYREL) 100 mg tablet Take 2 and 1/2 tabs at bedtime. 75 Tablet 0 ROS - See HPI Objective: BP 110/61 Pulse 97 Temp 36.8 ??C (98.2 ??F) (Tympanic) Resp 18 Comment: after ambulation Wt92.5 kg (204 lb) Comment: with boots and hoodie BMI 36.14 kg/m?? Physical Exam Physical Exam Vitals and [...] Thought content normal. Assessment / Plan: Gena seems to be gradually feeling better after her recent hospitalization. I advised her to get back in touch with this office, or with her transit driver if she feels that hercondition is worsening. She will follow-up with Dr. Veronica, her PCP, in November. There are no diagnoses linked to this encounter. No orders of the defined types were placed in this encounter. No orders of the defined types were placed in this encounter. Scottie Campuzano PA-C Next appt at [place] Office: 12/24/2021 11/11/2021 10:09 documented in this encounter Plan of Treatment Upcoming Encounters Date Type Department Care Team (Late st Contact Info) Description 01/04/2025 13:00 EST Office Visit [facility] Ophthalmology - [address] [phone] Gagandeep Rome MD [address] [place] [address], [address] [place] [phone] 02/11/2025 13:30 EDT Telemedicine [facility] [place] Hematology & Oncology - [address] [phone] Dana Padilla MD [address] [place] [address], [address] [place] [phone] documented as of this encounter Visit Diagnoses Diagnosis Gastrointestinal hemorrhage, unspecified gastrointestinal hemorrhage type- Primary Thrombocytopenia (HCC-CMS) Thrombocytopenia, unspecified documented in this encounter Care Teams Liquor Maker Relationship Specialty Start Date End Date Emigdio Veronica MD [address] [place] [phone] PCP - General Internal Medicine - Primary Care 05/22/20 02/21/24 Starr Paige MD [address] [place] [phone] Hematology 10/08/21 06/09/22 documented as of this encounter
--- OUTSIDE RECORDS SUMMARY | 2024-11-22 17:09 | XMS_ITS | Encounter Summary ---
Author Organization [facility] Address [address] [place] [address] Care Team Providers Care Business Services Sales Agent Name Role Phone Emigdio Veronica MD Primary Care Provider + Starr Paige MD Unavailable [phone] Encounter Details Date Type Department Care Team (Latest Contact Info) Description 11/10/2021 7:45 EST Phlebotomy Only [facility] Services - [address] [id number] [facility] Portal vein thrombosis; Upper GI bleed; Gastrointestinal hemorrhage, unspecified gastrointestinal hemorrhage type Social History Tobacco Use Types Packs/Day [...] 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 Not [...] Info) Description 01/04/2025 13:00 EST Office Visit [facility] Ophthalmology - [address] [phone] Gagandeep Rome MD [address] [facility], Level 5 [place] [phone] 02/11/2025 13:30 EDT Telemedicine [facility] Hematology & Oncology - [address] [phone] Dana Padilla MD [address] [place] [address], [facility] 2 [place] [address] documented as of this encounter Procedures Procedure Name Priority Date/Time Associated Diagnosis Comments COMPLETE BLOOD COUNT AND DIFFERENTIAL Routine 11/10/2021 8:04 EST Gastrointestinal hemorrhage, unspecified gastrointestinal hemorrhage type documented in this encounter Results * (ABNORMAL) COMPLETE BLOOD COUNT AND DIFFERENTIAL (11/10/2021 8:04 EST) WBC 5.88 4.00 - 12.40 K/cmm 11/10/2021 8:36 [facility] RBC 3.44(L) 3.86 - 5.04 M/cmm 11/10/2021 8:36 [facility] Hemoglobin 9.2(L) 11.6 - 15.2 gm/dL 11/10/2021 8:36 [facility] HCT 29.4(L) 34.9 - 44.4 % 11/10/2021 8:36 [facility] MCV 86 81 - 98 fl 11/10/2021 8:36 [facility] MCH 26.7 26.7 - 33.3 pg 11/10/2021 8:36 [facility] MCHC 31.3(L) 32.1 - 35.9 gm/dL 11/10/2021 8:36 [facility] RDW-CV 15.9(H) <14.7 % 11/10/2021 8:36 [facility] RDW-SD 49.2 <50.4 fl 11/10/2021 8:36 [facility] PLT 171 141 - 377 K/cmm 11/10/2021 8:36 [facility] MPV 8.9(L) 9.5 - 12.7 fl 11/10/2021 8:36 [facility] % Neutrophils 78.3 % 11/10/2021 8:36 [facility] % Lymphocytes 4.9 % 11/10/2021 8:36 [facility] % Monocytes 14.8 % 11/10/2021 8:36 [facility] % Eosinophils 1.4 % 11/10/2021 8:36 [facility] % Basophils 0.3 % 11/10/2021 8:36 [facility] % Immature Grans 0.3 % 11/10/20 8:36 [facility] Absolute Neutrophils 4.60 2.20 - 8.85 K/cmm 11/10/2021 8:36 [facility] Absolute Lymphocytes 0.29(L) 1.09 - 3.30 K/cmm 11/10/2021 8:36 [facility] Absolute Monocytes 0.87(H) 0.10 - 0.80 K/cmm 11/10/2021 8:36 [facility] Absolute Eosinophils 0.08 0.03 - 0.61 K/cmm 11/10/2021 8:36 [facility] ABS Basophils 0.02 0.01 - 0.11 K/cmm 11/10/2021 8:36 [facility] Absolute Immature Grans 0.02 0.00 - 0.06 K/cmm 11/10/2021 8:36 [facility] Type of Differential: Auto 11/10/2021 8:36 [facility] Blood VENOUS BLOOD / Unknown Venipuncture / Unknown 11/10/2021 8:04 EST 11/10/2021 8:04 EST Scottie Campuzano PA-C PACKAGES & DN A PROBE ORDERABLES Final Result [facility] [address] [place] [address] documented in this encounter Visit Diagnoses Diagnosis Portal vein thrombosis Upper GI bleed Hemorrhage of gastrointestinal tract, unspecified Gastrointestinal hemorrhage, unspecified gastrointestinal hemorrhage type documented in this encounter Care Teams Business Services Sales Agent Relationship Specialty Start Date End Date Emigdio Veronica MD [address] [place] [phone] PCP - General Internal Medicine - Primary Care 05/22/20 02/21/24 Starr Paige MD [address] [place] [phone] Hematology 10/08/21 06/09/22 documented as of this encounter
--- OUTSIDE RECORDS SUMMARY | 2024-11-22 17:09 | XMS_ITS | Encounter Summary ---
Author Organization [facility] Address [address] [place] [address] Care Team Providers Care Consumer Relations Specialist Name Role Phone Emigdio Veronica MD Primary Care Provider + Starr Paige MD Unavailable [phone] Dana Padilla MD Unavailable Izabella Snowden [facility] Unavailable [phone] None, Provider Primary Care Provider UnavailGabriel Dacosta Primary Care Provider Mirna Guerrero Primary Care Provider + Reason for Visit * Reason Onset Date Comments Labs Only 10/26/2021 Encounter Details Date Type Department Care Team (Late st Contact Info) Description 10/26/2021 Telephone [facility] Hematology & Oncology - [facility] [address] [place] [address] Dana Padilla MD 111 [facility] 2 [place] [address] Labs Only Social History Tobacco Use Types [...] 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 (15 years old or older) Answer Date of Assessment Author No 10/08/2021 22:00 EST Lala Orr RN documented as of this encounter Mental Status * Because of a physical, mental, or emotional condition, do you have serious difficulty concentrating, remembering, or making decisions? (5 years old or older) Answer Entry Date Author No 10/08/2021 22:00 EST Lala Orr RN documented in this encounter Miscellaneous Notes * Telephone Encounter - Blaire Kamara - 10/26/2021 0902 EST Patient calling to request labs for today. She stated she has been having her blood drawn every week and would be in the office for an appt at 1 today. Please call back to discuss documented in this encounter Plan of Treatment Upcoming Encounters Date Type Department Care Team (Late st Contact Info) Description 01/04/2025 13:00 EST Office Visit [facility] Ophthalmology - [address] [phone] Gagandeep Rome MD [address] [place] [address], [facility] 5 [place] [phone] 02/11/2025 13:30 EDT Telemedicine [facility] Hematology & Oncology [address] [phone] Dana Padilla MD [address] [place] [address], [address] [place] [address] documented as of this encounter Visit Diagnoses Not on filedocumented in this encounter Additional Health Concerns Infection Onset Date Last Indicated Resolved Time R/O COVID-19 12/14/2021 12/14/2021 12/19/2021 22:1 5 EST R/O COVID-19 04/26/2022 04/26/202204/2604/26/2022 23:4 5 EDT R/O COVID-19 Comment:Neg test [...] documented as of this encounter Care Teams Consumer Relations Specialist Relationship Specialty Start Date End Date Emigdio Veronica MD [address] [place] [phone] PCP - General Internal Medicine - Primary Care 05/22/20 02/21/24 None, Provider PCP - General 02/24/24 03/18/24 Gabriel Gandara PA PCP - General 03/19/24 09/11/24 Mirna Guerrero PA [address] [place] [phone] PCP - General 09/12/24 Starr Paige MD [address] [facility] [place] [phone] Hematology 10/08/21 06/09/22 Dana Padilla MD 111 [facility], [facility], [address] [place] [address] Hematology 01/13/22 06/09/22 Izabella Snowden, [facility] 1 [facility], 3rd [place] [address] Disability Advocate 02/21/23 05/03/24 documented as of this encounter
--- OUTSIDE RECORDS SUMMARY | 2024-11-22 17:09 | XMS_ITS | Encounter Summary ---
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 Not on [...] Telephone Encounter - Maritza Lakhani RN - 11/06/2021 1438 EST Relayed message to pt Went over times and locations for pt to have CBC drawn Pt was wondering if she could go Tuesday Enc pt to go sooner rather than later to have CBC drawn Pt will go to have CBC drawn tomorrow as pt does not have transportation today Explained to pt that [facility] lab is open 7-1 pm on tue and Tuesday or this evening till 6 pm Pt has good understanding of plan of care All questions and concerns addressed * Telephone Encounter - Merline Campuzano PA-C - 11/06/2021 1258 EST I signed the CBC order Please advise pt to get the blood test Thanks D * Telephone Encounter - Heike Rosado RN - 11/06/2021 1137 EST Pasted from transition of care document Clinical Issues Needing Follow-up 1. Pertinent medication changes: Abdominal pain with concern for GI bleed in the setting of known PUD and portal vein thrombosis -Discussed with hematology that given that there is no evidence of melena in the hospital and her hemoglobin is stable, to continue enoxaparin ?? 2. Recommended follow-up tests/procedures needed: -CBC in 5 to 7 days ?? 3. Anticoagulation on discharge: 40 mg enoxaparin daily as previously prescribed by hematology, unchanged Her case was discussed with hematology fellow prior to discharge who recommended restarting the prophylactic Lovenox given that the patient did not have signs of active bleeding. This was discussed with the patient in addition to clear return precautions related to possible ongoing GI bleed. Hospital Discharge Follow Up: Risk Assessment: high 96% readmission risk Reason for admission: abd pain Symptoms improving? yes Discharge instructions available? yes Medications Reviewed/prescriptions filled? Yes. Will continue lovenox injections Support at home? Yes. Son helps. Has support Home health service/issues? no Questions about discharge instructions? no - Follow-up visit scheduled? yes Education/Plan: will f/u with merline on 11/11 for hfu visit. Wants to also discuss her pain which she says is getting worse. Is also open to discussing pain with dr fernandez upon his return in November. Discussed cbc that is recommended between 11/09 and 11/11. Order pended for merline to sign. She willmake a visit at [facility] for 11/09 or 11/10 The patient indicates understanding of these issues and agrees with the plan. HEIKE ROSADO RN 11/06/2021 documented in this encounter Plan of Treatment Upcoming Encounters Date Type Department Care Team (Late st Contact Info) Description 01/04/2025 13:00 EST Office Visit [facility] Ophthalmology - [address] [phone] Gagandeep Rome MD [address] [place] [address], [facility] 5 [place] [address] 02/11/2025 13:30 EDT Telemedicine [facility] Hematology & Oncology - [address] [phone] Dana Padilla MD [address] [place] [address], Level [address] [place] [phone] documented as of this encounter Results * (ABNORMAL) COMPLETE BLOOD COUNT AND DIFFERENTIAL (11/10/2021 8:04 EST) WBC 5.88 4.00 - 12.40 K/cmm 11/10/2021 8:36 EST [facility] RBC 3.44(L) 3.86 - 5.04 M/cmm 11/10/2021 8:36 EST [facility] Hemoglobin 9.2(L) 11.6 - 15.2 gm/dL 11/10/2021 8:36 EST [facility] HCT 29.4(L) 34.9 - 44.4 % 11/10/2021 8:36 [facility] MCV 86 81 - 98 fl 11/10/2021 8:36 [facility] MCH 26.7 26.7 - 33.3 pg 11/10/2021 8:36 [facility] MCHC 31.3(L) 32.1 - 35.9 gm/dL 11/10/2021 8:36 [facility] RDW-CV 15.9(H) <14.7 % 11/10/2021 8:36 [facility] RDW-SD 49.2 <50.4 fl 11/10/2021 8:36 [facility] PLT 171 141 - 377 K/cmm 11/10/2021 8:36 [facility] MPV 8.9(L) 9.5 - 12.7 fl 11/10/2021 8:36 [facility] % Neutrophils 78.3 % 11/10/2021 8:36 [facility] % Lymphocytes 4.9 % 11/10/2021 8:36 [facility] % Monocytes 14.8 % 11/10/2021 8:36 [facility] % Eosinophils 1.4 % 11/10/2021 8:36 [facility] % Basophils 0.3 % 11/10/2021 8:36 [facility] % Immature Grans 0.3 % 11/10/20 8:36 [facility] Absolute Neutrophils 4.60 2.20 - 8.85 K/cmm 11/10/2021 8:36 [facility] Absolute Lymphocytes 0.29(L) 1.09 - 3.30 K/cmm 11/10/2021 8:36 [facility] Absolute Monocytes 0.87(H) 0.10 - 0.80 K/cmm 11/10/2021 8:36 [facility] Absolute Eosinophils 0.08 0.03 - 0.61 K/cmm 11/10/2021 8:36 [facility] ABS Basophils 0.02 0.01 - 0.11 K/cmm 11/10/2021 8:36 EST [facility] Absolute Immature Grans 0.02 0.00 - 0.06 K/cmm 11/10/2021 8:36 EST [facility] Type of Differential: Auto 11/10/2021 8:36 EST [facility] Blood VENOUS BLOOD / Unknown Venipuncture / Unknown 11/10/2021 8:04 EST 11/10/2021 8:04 EST us Merline Campuzano PA-C PACKAGES & DN A PROBE ORDERABLES Final Result [facility] [address] [place] [address] documented in this encounter Visit Diagnoses Diagnosis Gastrointestinal hemorrhage, unspecified gastrointestinal hemorrhage type- Primary documented in this encounter Care Teams Manager Clinical Applications Relationship Specialty Start Date End Date Emigdio Fernandez MD [address] [place] [phone] PCP - General Internal Medicine - Primary Care 05/22/20 02/21/24 Starr Paige MD [address] [place] [phone] Hematology 10/08/21 06/09/22 documented as of this encounter
--- OUTSIDE RECORDS SUMMARY | 2024-11-22 17:09 | XMS_ITS | Encounter Summary ---
Author Organization [facility] Address [address] [place] [address] Care Team Providers Care Epic Cadence Specialists Name Role Phone Emigdio Vernoica MD Primary Care Provider + Starr Paige MD Unavailable [phone] Encounter Details Date Type Department Care Team (Latest Contact Info) Description 10/27/2021 14:00 EST Phlebotomy Only [facility] Laboratory Services - [address] [phone] [facility] Secondary hypercoagulable state (HCC-CMS); Other cirrhosis of liver [...] 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 Not [...] [facility] Ophthalmology - [address] [phone] Gagandeep Rome MD [address] [facility], Level 5 [place] [phone] 02/11/2025 13:30 EDT Telemedicine [facility] Hematology & Oncology - [address] [address] Dana Padilla MD [address] [place] [address], [facility] 2 [place] [address] documented as of this encounter Procedures Procedure Name Priority Date/Time Associated Diagnosis Comments COAG SPIN AND FREEZE Routine 10/27/2021 14:20 EST Secondary hypercoagulable state (HCC-CMS) Other cirrhosis of liver (HCC) (HCC-CMS) COAG SPIN AND FREEZE Routine 10/27/2021 14:20 EST Secondary hypercoagulable state (HCC-CMS) Other cirrhosis of liver (HCC) (HCC-CMS) PROTEIN S ACTIVITY Routine 10/27/2021 14 :20 EST Secondary hypercoagulable state (HCC-CMS) Other cirrhosis of liver (HCC) (HCC-CMS) PROTIME Routine 10/27/2021 14:20 EST Secondary hypercoagulable state (HCC-CMS) Other cirrhosis of liver (HCC) (HCC-CMS) FIBRINOGEN Routine 10/27/2021 14:20 EST Secondary hypercoagulable state (HCC-CMS) Other cirrhosis of liver (HCC) (HCC-CMS) D-DIMER Routine 10/27/2021 14:20 EST Secondary hypercoagulable state (HCC-CMS) Other cirrhosis of liver (HCC) (HCC-CMS) PROTEIN C ACTIVITY Routine 10/27/2021 14 :20 EST Secondary hypercoagulable state (HCC-CMS) Other cirrhosis of liver (HCC) (HCC-CMS) HN LAB PATH REVIEW - COAG Today 10/27/2021 14:19 EST Secondary hypercoagulable state (HCC-CMS) LUPUS ANTICOAGULANT CASCADE Routine 10/27/2021 14:19 EST Secondary hypercoagulable state (HCC-CMS) BETA 2 GLYCOPROTEIN ANTIBODY PANEL Routine 10/27/2021 14:19 EST Secondary hypercoagulable state (HCC-CMS) PHOSPHOLIPID ANTIBODY Routine 10/27/2021 14:19 EST Secondary hypercoagulable state (HCC-CMS) ANTITHROMBIN, FUNCTIONAL Routine 10/27/2021 14:19 EST Secondary hypercoagulable state (HCC-CMS) Other cirrhosis of liver (HCC) (HCC-CMS) FACTOR 8 ASSAY Routine 10/27/2021 14:19 EST Secondary hypercoagulable state (HCC-CMS) Other cirrhosis of liver (HCC) (HCC-CMS) COMPLETE BLOOD COUNT Routine 10/27/2021 14:19 EST Portal vein thrombosis Upper GI bleed documented in this encounter Results * COAG SPIN AND FREEZE (10/27/2021 14:20 EST) Hold 10/27/2021 15:32 EST [facility] Blood VENOUS BLOOD / Unknown Venipuncture / Unknown 10/27/2021 14:20 EST 10/27/2021 14:20 EST us Dana Padilla MD HEMATOLOGY & PF4 ORDERABLES Pricila l Result [facility] [address] [place] [address] * (ABNORMAL) D-DIMER (10/27/2021 14:20 EST) D-Dimer 5,761(H) <=230 ng/mL DDU 10/27/2021 15:58 EST [facility] Blood VENOUS BLOOD / Unknown Venipuncture / Unknown 10/27/2021 14:20 EST 10/27/2021 14:20 EST Narrative [facility] - 10/27/2021 15:58 EST Cutoff value for the exclusion of DVT and PE: 230 ng/mL D-dimer units. Any use of the age-adjusted cutoff value is a post-analytic modification of this FDA-approved test and is considered off-label use of the test result. [facility] laboratory does not have literature to support the validity of an age-adjusted cutoff for our specific assay. Dana Padilla MD HEMATOLOGY & PF4 ORDERABLES Pricila l Result Performing Organization Address [facility] Co de Phone Number [facility] [address] [place] [address] * FIBRINOGEN (10/27/2021 14:20 EST) Pathologist [facility] Fibrinogen 251 171 - 384 mg/dL 10/27/2021 15:29 EST [facility] Blood VENOUS BLOOD / Unknown Venipuncture / Unknown 10/27/2021 14:20 EST 10/27/2021 14:20 EST Dana Padilla MD HEMATOLOGY & PF4 ORDERABLES Pricila l Result Performing Organization Address City/[facility]/ZIP Co de Phone Number [facility] [address] [place] [address] * PROTEIN S ACTIVITY (10/27/2021 14:20 EST) Pathologist [facility] Protein S Activity 96 64 - 147 % 2020 11:34 EST [facility] Comment: a.Acquired Protein S deficiencies [...] Unknown 10/27/2021 14:20 EST 10/27/2021 14:20 EST us Dana Padilla MD HEMATOLOGY & PF4 ORDERABLES Pricila l Result Performing Organization Address City/[facility] Co de Phone Number [facility] [address] [place] [phone] * (ABNORMAL) PROTEIN C ACTIVITY (10/27/2021 14:20 EST) Protein C Clot 59(L) 71 - 199 % 10/28/2021 11:49 EST [facility] Comment: a. Acquired Protein C [...] 10/27/2021 14:20 EST 10/27/2021 14:20 EST Narrative [facility] - 10/28/2021 11:49 EST Sample retested, result confirmed us Dana Padilla MD HEMATOLOGY & PF4 ORDERABLES Pricila l Result Performing Organization Address [facility]/ZIP Co de Phone Number [facility] [address] [place] [address] * (ABNORMAL) PROTIME (10/27/2021 14:20 EST) [facility] I.N.R. 1.3(H) 0.9 - 1.1 Ratio 10/27/2021 15:29 EST [facility] Pro Time 15.0(H) 10.4 - 12.6 secs 10/27/2021 15:29 EST [facility] Blood VENOUS BLOOD / Unknown Venipuncture / Unknown 10/27/2021 14:20 EST 10/27/2021 14:20 EST Narrative [facility] - 10/27/2021 15:29 EST Moderate Intensity Coumadin INR = 2.0-3.0 Adjustments in anticoagulant therapy dose should be based on the INR and NOT on the Protime. Dana Padilla MD HEMATOLOGY & PF4 ORDERABLES Pricila l Result Performing Organization Address City/[facility]/ZIP Co de Phone Number [facility] [address] [place] [address] * HN LAB PATH REVIEW - COAG (10/27/2021 14:19 EST) [facility] Pathology Review Comment - Coagulation Jordan Kauffman MD 10/30/2021 13:07 EST [facility] Blood VENOUS BLOOD / Unknown Venipuncture / Unknown 10/27/2021 14:19 EST 10/27/2021 14:20 EST Dana Padilla MD HEMATOLOGY & PF4 ORDERABLES Pricila l Result [facility] [address] [place] [address] * BETA 2 GLYCOPROTEIN ANTIBODY PANEL (10/27/2021 14:19 EST) [facility] Beta 2 GP1 Ab IgG, S <9.4 <15.0 (Negative ) U/mL 10/29/2021 11:20 EST [facility] Beta 2 GP1 Ab IgM, S <9.4 <15.0 (Negative ) U/mL 10/29/2021 11:20 EST [facility] Comment: Test Performed by: [place] [address] Facilities Project Manager: Jesus Stanford M.D. Ph.D.; CLIA# [id number] Blood VENOUS BLOOD / Unknown Venipuncture / Unknown 10/27/2021 14:19 EST 10/27/2021 14:20 EST Dana Padilla MD IMMUNOLOGY AND SEROLOGY ORDERABL ES Final Result Performing Organization Address [facility] Co de Phone Number [facility] [address] [place] [address] * PHOSPHOLIPID ANTIBODY (10/27/2021 14:19 EST) [facility] Phospholipid IgG (Cardiolipin) Ab, S <9.4 <15.0 (Negative ) GPL 10/28/2021 19:40 EST [facility] [employer] Comment: Test Performed by: [facility] [place] [address] Facilities Project Manager: Jesus Stanford M.D. Ph.D.; CLIA# [id number] Phospholipid IgM (Cardiolipin) Ab, S <9.4 <15.0 (Negative ) MPL 10/28/2021 19:40 EST [facility] Blood VENOUS BLOOD / Unknown Venipuncture / Unknown 10/27/2021 14:19 EST 10/27/2021 14:20 EST Dana Padilla MD IMMUNOLOGY AND SEROLOGY ORDERABL ES Final Result Performing Organization Address [facility]/ZIP Co de Phone Number [facility] [address] [place] [address] * LUPUS ANTICOAGULANT CASCADE (10/27/2021 14:19 EST) Pathologist [facility] [place] Summary Negative for detection of lupus anticoagulant [...] Jordan Kauffman MD 10/29/21 14:46 10/29/2021 14:47 [facility] Dilute Viper Venom 38.5 31.9 - 47.0 secs 10/29/2021 14:47 [facility] Silica Clotting Time 39.6 30.2 - 48.4 secs 10/29/2021 14:47 [facility] Blood VENOUS BLOOD / Unknown Venipuncture / Unknown 10/27/2021 14:19 EST 10/27/2021 14:20 EST Dana Padilla MD HEMATOLOGY & PF4 ORDERABLES Pricila l Result [facility] [address] [place] [address] * (ABNORMAL) COMPLETE BLOOD COUNT (10/27/2021 14:19 EST) WBC 5.30 4.00 - 12.40 K/cmm 10/27/2021 15:18 [facility] RBC 3.41(L) 3.86 - 5.04 M/cmm 10/27/2021 15:18 [facility] Hemoglobin 9.3(L) 11.6 - 15.2 gm/dL 10/27/2021 15:18 [facility] HCT 29.2(L) 34.9 - 44.4 % 10/27/2021 15:18 [facility] MCV 86 81 - 98 fl 10/27/2021 15:18 [facility] MCH 27.3 26.7 - 33.3 pg 10/27/2021 15:18 [facility] MCHC 31.8(L) 32.1 - 35.9 gm/dL 10/27/2021 15:18 [facility] RDW-CV 15.6(H) <14.7 % 10/27/2021 15:18 [facility] RDW-SD 48.6 <50.4 fl 10/27/2021 15:18 [facility] PLT 149 141 - 377 K/cmm 10/27/2021 15:18 [facility] MPV 9.6 9.5 - 12.7 fl 10/27/2021 15:18 [facility] Blood VENOUS BLOOD / Unknown Venipuncture / Unknown 10/27/2021 14:19 EST 10/27/2021 14:20 EST Dana Padilla MD HEMATOLOGY & PF4 ORDERABLES Pricila l Result Performing Organization Address [facility] Co de Phone Number [facility] [address] [place] [address] * (ABNORMAL) FACTOR 8 ASSAY (10/27/2021 14:19 EST) Factor 8 Assay 188(H) 50 - 150 % 10/28/2021 8:28 [facility] Comment:This FVIII activity is clot-based, and will overestimate the endogenous factor activity in the presence of emicizumab (Hemlibra). Blood VENOUS BLOOD / Unknown Venipuncture / Unknown 10/27/2021 14:19 EST 10/27/2021 14:20 EST Dana Padilla MD HEMATOLOGY & PF4 ORDERABLES Pricila l Result Performing Organization Address City/[facility] Co de Phone Number [facility] [address] [place] [address] * (ABNORMAL) ANTITHROMBIN, FUNCTIONAL (10/27/2021 14:19 EST) Antithrombin, Functional 69(L) 85 - 125 % 10/28/2021 8:27 EST [facility] Comment:Results may be overe stimated [...] PF4 ORDERABLES Pricila l Result [facility] [address] [place] [address] documented in this encounter Visit Diagnoses Diagnosis Secondary hypercoagulable state (HCC-CMS) Secondary hypercoagulable state Other cirrhosis of liver (HCC-CMS) Portal vein thrombosis Upper GI bleed Hemorrhage of gastrointestinal tract, unspecified documented in this encounter Care Teams Epic Cadence Specialists Relationship Specialty Start Date End Date Emigdio Veronica MD [address] [place] [phone] PCP - General Internal Medicine - Primary Care 05/22/20 02/21/24 Starr Paige MD [address] [place] [address] Hematology 10/08/21 06/09/22 documented as of this encounter
--- OUTSIDE RECORDS SUMMARY | 2024-11-22 17:09 | XMS_ITS | Encounter Summary ---
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 90 Tablet 1 11/11/2021 05/20/2022 documented in this encounter Miscellaneous Notes * Telephone Encounter - Wanda Casiano RN - 11/11/2021 1909 EST Requested Prescriptions Pending Prescriptions Disp Refills ??? levothyroxine (SYNTHROID) 25 mcg tablet [Pharmacy Med Name: LEVOTHYROXINE 25 MCG TABLET] 90 Tablet 1 Sig: TAKE 1 TAB BY MOUTH DAILY. UNKNOWN DOSE [id number] [place] - [address] [place] [address] Last Refill Date: 11/03/20 Last Visit Date with Provider: TODAY Next Non-Acute Visit Date Scheduled with Care Team: Yes. WANDA CASIANO RN 11/11/2021 19:09 documented in this encounter Plan of Treatment Upcoming Encounters Date Type Department Care Team (Late st Contact Info) Description 01/04/2025 13:00 EST Office Visit [facility] Ophthalmology - [address] [phone] Gagandeep Rome MD [address] [place] [address], [facility] [address] [place] [address] 02/11/2025 13:[address] [facility] Hematology & Oncology - [address] [phone] Dana Padilla MD [address] [place] [address], [facility] 2 [place] [phone] documented as of this encounter Visit Diagnoses Not on filedocumented in this encounter Discontinued Medications Medication Sig Discontinue Reason Start Date End Da te levothyroxine (SYNTHROID) 25 mcg tablet Take 1 Tab by mouth daily. Unknown dose 11/03/2020 11/11/2021 documented as of this encounter Care Teams Structural Steel Equipment Erector Relationship Specialty Start Date End Date Emigdio Veronica MD [address] [place] [address] PCP - General Internal Medicine - Primary Care 05/22/20 02/21/24 Starr Paige MD [address] [place] [phone] Hematology 10/08/21 06/09/22 documented as of this encounter
--- OUTSIDE RECORDS SUMMARY | 2024-11-22 17:10 | XMS_ITS | Encounter Summary ---
Author Organization [facility] Address [address] [place] [address] Care Team Providers Care Administrative Coordinator Name Role Phone Emigdio Veronica MD Primary Care Provider + Starr Paige MD Unavailable [phone] Reason for Visit * Reason Onset Date Comments Medications Refill 10/17/2021 Medications Refill 10/19/2021 Encounter Details Date Type Department Care Team (Late st Contact Info) Description 10/17/2021 Refill [facility] Primary Care [facility] [address] [phone] Emigdio Veronica MD [address] [place] [phone] Medications Refill; Medications Refill Social History Tobacco Use Types Packs/Day Years Used Date Smoking Tobacco: Some Days Cigarettes 0.3 35 Smokeless Tobacco: Never Alcohol Use Standard Drinks/Week [...] 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 75 Tablet 10/17/2021 10/26/2021 documented in this encounter Miscellaneous Notes * Telephone Encounter - Tiny Sandoval MD - 10/17/2021 1241 EST Weekend MD note: Rx approved for 1 month trazodone. Signed and escribed to pt pharmacy. Tiny Sandoval MD 10/17/2021 12:41 * Telephone Encounter - Tejas Bee - 10/17/2021 1235 EST Pharmacy is [facility] Pt was just discharged from hospital and is in pain. Requesting enough until he sees pcp next week. * Telephone Encounter - Steffany mSith - 10/17/2021 1136 EST Medication(s) Requested: Trazodone Preferred Pharmacy: [facility] Is patient out of medication? Yes Last Refill Date: 10.11.20 Last Visit Date with Ordering Provider: ? 11.09.16 Tino Pimentel Next Non-Acute Visit Date Scheduled with Care Team: No. Steffany Smith 10/17/2021 11:37 documented in this encounter Plan of Treatment Upcoming Encounters Date Type Department Care Team (Late st Contact Info) Description 01/04/2025 13:00 EST Office Visit [facility] Ophthalmology - [address] [phone] Gagandeep Rome MD 111 [facility], Level [address] [place] [phone] 02/11/2025 13:30 EDT Telemedicine [facility] Hematology & Oncology - [address] [phone] Dana Padilla MD 111 [facility], Level [address] [place] [phone] documented as of this encounter Visit Diagnoses Not on filedocumented in this encounter Discontinued Medications Medication Sig Discontinue Reason Start Date End Da te traZODone (DESYREL) 100 mg tablet Take 2 and 1/2 tabs at bedtime. Reorder 07/22/2021 10/17/2021 documented as of this encounter Care Teams Administrative Coordinator Relationship Specialty Start Date End Date Emigdio Veronica MD [address] [place] [phone] PCP - General Internal Medicine - Primary Care 05/22/20 02/21/24 Starr Paige MD [address] [place] [phone] Hematology 10/08/21 06/09/22 documented as of this encounter
--- OUTSIDE RECORDS SUMMARY | 2024-11-22 17:10 | XMS_ITS | Encounter Summary ---
Author Organization [facility] Address [address] [place] [address] Care Team Providers Care Computer Forensics Examiner Name Role Phone Emigdio Veronica MD Primary Care Provider + Starr Paige MD Unavailable [phone] Encounter Details Date Type Department Care Team (Late st Contact Info) Description 10/19/2021 13:15 EST Phlebotomy Only [facility] 2 Phlebotomy [address] [place], [place] [phone] [place], [facility] Phlebotomy Pancytopenia (HCC) (HCC-CMS); Portal vein thrombosis; Anemia, unspecified type; Gastrointestinal hemorrhage associated with duodenal ulcer Social [...] 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 Not on [...] Office Visit [facility] Ophthalmology - [address] [phone] Gagandeep Rome MD [address] [place] [address], Level [address] [place] [phone] 02/11/2025 13:30 EDT Telemedicine [facility] Hematology & Oncology - [address] [phone] Dana Padilla MD 111 [facility], Level 2 [place] [address] documented as of this encounter Procedures Procedure Name Priority Date/Time Associated Diagnosis Comments COMPLETE BLOOD COUNT STAT 10/19/2021 13:29 EST Pancytopenia (HCC) (HCC-CMS) Portal vein thrombosis FOLATE Routine 10/19/2021 13:29 EST Anemia, unspecified type FERRITIN Routine 10/19/2021 13:29 EST Anemia, unspecified type VITAMIN B12 Routine 10/19/2021 13:29 EST Anemia, unspecified type documented in this encounter Results * FOLATE (10/19/2021 13:29 EST) Folate 8.1 See Note ng/mL 10/19/2021 14:35 EST [facility] Comment: Reference Ranges for Folate: Deficient: ?< 3.4 ng/mL Indeterminate: ??3.4 - 5.4 ng/mL Normal: ? > 5.4 ng/mL The results of this assay can be falsely elevated due to the consumption of Biotin. Blood VENOUS BLOOD / Unknown Venipuncture / Unknown 10/19/2021 13:29 EST 10/19/2021 13:33 EST us Starr Paige MD CHEMISTRY & BLOOD GAS ORDER YANN Final Result Performing Organization Address City/[facility]/ZIP Co de Phone Number [facility] [address] [place] [address] * VITAMIN B12 (10/19/2021 13:29 EST) Vitamin B12 497 211 - 911 pg/mL 10/19/2021 14:37 EST [facility] Blood VENOUS BLOOD / Unknown Venipuncture / Unknown 10/19/2021 13:29 EST 10/19/2021 13:33 EST us Starr Paige MD CHEMISTRY & BLOOD GAS ORDER YANN Final Result Performing Organization Address [facility] Co de Phone Number [facility] [address] [place] [address] * FERRITIN (10/19/2021 13:29 EST) Ferritin 179 10 - 291 ng/mL 10/19/2021 14:32 EST [facility] Blood VENOUS BLOOD / Unknown Venipuncture / Unknown 10/19/2021 13:29 EST 10/19/2021 13:33 EST us Starr Paige MD CHEMISTRY & BLOOD GAS ORDER YANN Final Result Performing Organization Address City/[facility]/ZIP Co de Phone Number [facility] [address] [place] [address] * (ABNORMAL) COMPLETE BLOOD COUNT (10/19/2021 13:29 EST) WBC 4.60 4.00 - 12.40 K/cmm 10/19/2021 13:44 EST [facility] RBC 3.25(L) 3.86 - 5.04 M/cmm 10/19/2021 13:44 EST [facility] Hemoglobin 9.2(L) 11.6 - 15.2 gm/dL 10/19/2021 13:44 EST [facility] HCT 28.7(L) 34.9 - 44.4 % 10/19/2021 13:44 [facility] MCV 88 81 - 98 fl 10/19/2021 13:44 [facility] MCH 28.3 26.7 - 33.3 pg 10/19/2021 13:44 [facility] MCHC 32.1 32.1 - 35.9 gm/dL 10/19/2021 13:44 [facility] RDW-CV 16.1(H) <14.7 % 10/19/2021 13:44 [facility] RDW-SD 52.2(H) <50.4 fl 10/19/2021 13:44 [facility] PLT 170 141 - 377 K/cmm 10/19/2021 13:44 [facility] MPV 9.2(L) 9.5 - 12.7 fl 10/19/2021 13:44 [facility] Blood VENOUS BLOOD / Unknown Venipuncture / Unknown 10/19/2021 13:29 EST 10/19/2021 13:33 EST Starr Paige MD HEMATOLOGY & PF4 ORDERABLES Final Result Performing Organization Address [facility]/State/[facility] Co de Phone Number [facility] [address] [place] [address] documented in this encounter Visit Diagnoses Diagnosis Pancytopenia (HCC-CMS) Other pancytopenia Portal vein thrombosis Anemia, unspecified type Gastrointestinal hemorrhage associated with duodenal ulcer documented in this encounter Care Teams Computer Forensics Examiner Relationship Specialty Start Date End Date Emigdio Veronica MD [address] [place] [phone] PCP - General Internal Medicine - Primary Care 05/22/20 02/21/24 Starr Paige MD [address] [facility] [place] [phone] Hematology 10/08/21 06/09/22 documented as of this encounter
--- OUTSIDE RECORDS SUMMARY | 2024-11-22 17:10 | XMS_ITS | Encounter Summary ---
Author Organization [facility] Address [address] [place] [address] Care Team Providers Care Sodium Chlorite Operator Name Role Phone Emigdio Veronica MD Primary Care Provider + Starr Paige MD Unavailable [phone] Dana Padilla MD Unavailable Izabella Snowden [facility] Unavailable [phone] None, Provider Primary Care Provider UnavailGabriel Dacosta Primary Care Provider Mirna Guerrero Primary Care Provider + Reason for Visit * Reason Comments Other Encounter Details Date Type Department Care Team (Late st Contact Info) Description 10/24/[address] 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 Not [...] Visit [facility] Ophthalmology - [address] [phone] Gagandeep Rome MD [address] [place] [address] 5 [place] [phone] 02/11/2025 13:30 EDT Telemedicine [facility] Hematology & Oncology [address] [phone] Dana Padilla MD [address] [place] [address] 2 [place] [phone] documented as of this encounter [...] documented as of this encounter Care Teams Sodium Chlorite Operator Relationship Specialty Start Date End Date Emigdio Veronica MD [address] [place] [phone] PCP - General Internal Medicine - Primary Care 05/22/20 02/21/24 None, Provider PCP - General 02/24/24 03/18/24 Gabriel Gandara PA PCP - General 03/19/24 09/11/24 Mirna Guerrero PA [address] [place], [place] [phone] PCP - General 09/12/24 Starr Paige MD [address] [place] [phone] Hematology 10/08/21 06/09/22 Dana Padilla MD [address], [facility], Level [address] [place] [address] Hematology 01/13/22 06/09/22 Izabella Snowden, [facility] [address] [facility], 3rd [place] [address] Radiological Equipment Specialist 02/21/23 05/03/24 documented as of this encounter
--- OUTSIDE RECORDS SUMMARY | 2024-11-22 17:10 | XMS_ITS | Encounter Summary ---
Author Organization [facility] Address [address] [place] [address] Care Team Providers Care Armhole Presser Name Role Phone Emigdio Veronica MD Primary Care Provider + Starr Paige MD Unavailable [phone] Reason for Referral * Referral (Urgent) - Closed Specialty Diagnoses / Procedures Referred By Contact Referred To Contact Gastroenterology and Hepatology Diagnoses Gastrointestinal hemorrhage associated with duodenal ulcer Procedures UPPER ENDOSCOPY (EGD) ME ESOPHAGOGASTRODUODENOSCOPY TRANSORAL DIAGNOSTIC ANESTHESIA UPPER GI ENDOSCOPIC PX NOS Emigdio Veronica MD Phone: tel:[phone] fax:[phone] [facility] Gastroenterology - Main [facility] [address] [place] [address] Phone: tel: fax: Referral ID Status Reason Start Date Expiration Date Visits Re quested Visits Authorized [id number] Closed 10/21/2021 11/20/2022 1 1 Reason for Visit * Reason Comments Hospital Discharge Follow Up Encounter Details Date Type Department Care Team (Latest Contact Info) Description 10/20/2021 15:45 EST Office Visit [facility] - [place] [address] [place] [address] Emigdio Veronica MD 2 [facility] [place] [phone] Gastrointestinal hemorrhage associated with duodenal ulcer (Primary Dx); Other cirrhosis of liver (HCC) (HCC-CMS); Chronic pain syndrome; Portal vein thrombosis; Healthcare maintenance Social History Tobacco Use Types Packs/Day Years Used Date Smoking Tobacco: Former Cigarettes 0.3 35 0 08/20/1986 - 08/20/2021 Smokeless Tobacco: Never Tobacco Cessation:Counseling Given: No [...] Industry 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 Start Date Job End Date [employer]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 Not on file Not o n file documented as of this encounter Last Filed Vital Signs Vital Sign Reading Time Taken Comments Blood Pressure 108/51 10/20/2021 1536 EST Pulse 83 10/20/2021 1536 EST r Temperature 36.8 ??C (98.3 ??F) 10/20/2021 1536 EST Respiratory Rate 16 10/20/2021 1536 EST Oxygen Saturation - - Inhaled Oxygen Concentration - - Weight 92.5 kg (204 lb) 10/20/2021 1536 EST Height - - Body Mass Index 35.02 10/08/2021 1955 EST documented in this encounter Functional Status [...] Lala Pearce RN documented in this encounter Ordered Prescriptions Prescription Sig Dispense Quantity Refills Last Filled Start Date End Date HYDROmorphone (DILAUDID) 2 mg tablet Take 1 Tablet by mouth every 6 hours as needed for up to 28 days for Pain. Daily Max: 8 mg 84 Tablet 10/26/2021 11/23/2021 documented in this encounter Progress Notes * Emigdio Veronica MD - 10/20/2021 3802 EST Tara Yun is a 61 y.o. female with a PMHx of MACHADO cirrhosis PRIMARY CARE PROVIDER: Emigdio Veronica CHIEF COMPLAINT: Chief Complaint Patient presents with ??? Hospital Discharge Follow Up SUBJECTIVE: Tara Yun presents today for a posthospitalization visit. She was admitted to the internal medicine service at the [facility] from 10/08 to 10/17/2021 for acute GI bleed. Rhonda originally presented via ambulance from our office to [facility] ED for severe fatigue / malaise and reports of intractable nausea and melena. In the ER she was noted to be tachycardic with a hemoglobin level of 7.0. Due to her history of [place] cirrhosis she was started on ceftriaxone and ocetreotide. She was transfused and started on IV Protonix and received a CTA abdomen study that demonstratedno evidence of active extravasation though her study did demonstrate evidence of increased nonocclusive clot burden in her portal vein. She was admitted to the internal medicine service and GI was consulted who subsequently performed 3 separate EGD procedures during her admission. Her EGDs were sign ifcant for evidence of a pyloric channel ulcer extending into her duodenal bulb without evidence ofactive bleeding. GI ultimately recommended twice daily PPI therapy for 3 months as well as use of sucralfate with meals. GI also advised against treatment of her portal vein clot due to bleeding riskand advised against anticoagulation given her risk of recurrent GI bleed. Sukhjinder hemoglobin levels continue to fluctuate throughout her admission requiring at least 2 other blood transfusions to maintain her hemoglobin levels above 7. She was discharged with a hemoglobin of 9.1 and a recent CBC demonstrates stability in her hemoglobin level at 9.2. Her hospital course was also complicated by the presence of volume overload requiring episodic treatment with IV furosemide. She was discharged on a regiment of Lasix 20 mg daily with spironolactone 50 mg daily. She reports today that her weights have been stable in the 204 range and she feels wellat this weight. She reports that she was advised to consider taking a second lasix dose on days in which she feels swollen we discussed a better strategy of tracking her weights in regards to usingextra lasix. Her hospital course was also complicated by the chronic presence of severe abdominal pain. The internal medicine service described this as multifactorial and believed it to be related to a combination of her recent splenic embolization procedure, duodenal ulcer and chronic portal vein thrombus. Shewas discharged with a small supply of Dilaudid 2 mg which she has been taking every 6 hours for a daily max of 4 tablets or 8 mg daily. This is a notable increase from her prior to admission dose of 2 mg every 12 hours for a max of 4 mg daily. Prior to her presentation today she had reached out to get an extension of her Dilaudid at her current discharge dosage and has enough supply to last her until 10/26/21. We discussed the next steps in management of her chronic pain. Ideally we would work to taper her back down to her prior to admission dose of 2 mg BID. However we discussed the possibility that her pain control needs may be permanently increased in relation to her worsening portal veinclot. We discussed the possibility of eventually switching out her Dilaudid for an opiate formulation that would allow extended release dosing. We discussed given her improvement in her GFR we could consider returning to oxycodone, however we agreed to continue hydromorphone/dilaudid in the short term to avoid too many abrupt medication changes. ROS as above Medications and history reviewed. [...] mL (0.083 %) nebulizer solution OBJECTIVE: BP 108/51 (BP Cuff Location: Left arm, BP Patient Position: Sitting, BP Cuff Sizes: Adult, long) Pulse 83 Comment: r Temp 36.8 ??C (98.3 ??F) (Tympanic) Resp 16 Wt 92.5 kg (204 lb) BMI 35.02 kg/m?? Gen: Well appearing middle-age female, NAD HEENT: EOMI, PERRL, conjunctiva pink, no scleral injection/ icterus Neck: no cervical lymphadenopathy, thyroid exam WNL CV: RRR, no murmurs, rubs or gallops Pulm: CTAB, good air movement, no wheezes, rales, or rhonchi Abd: +BS, soft, mild ascites, hepatosplenomegaly appreciated Extrem: Trace edema, warm and well perfused Skin: No rashes or erythema, intact Neuro: A&Ox3, CN II through XII grossly intact Recent Labs/Imaging: Reviewed in Epic ASSESSMENT and PLAN: Tara was seen today for hospital discharge follow up. Diagnoses and all orders for this visit: Gastrointestinal hemorrhage associated with duodenal ulcer: Diagnosed on recent 9-day admission to the internal medicine service at [facility] with Gi consultation. 3 separate EGDs performed during admission confirmed a stable clean-based ulcer in the duodenal bulb. Patient was discharged with a plan tocontinue twice daily Protonix for the next 3 months before moving to daily PPI dosing. No GI follow- up was arranged on discharge, but per chart review GI had recommended a follow- up with their service as an outpatient in 3 months combined with a repeat EGD at that time to to ensure resolution of her duodenal ulcer. I will place these follow-up referrals at this time. - AMB CONS/FOLLOW UP GASTROENTEROLOGY; Future - UPPER ENDOSCOPY (EGD); Future -Continue Protonix 40 mg twice daily for the next 3 months as advised by GI -Continue sucralfate QID before meals -Hemoglobin appears stable at this time but will arrange a repeat CBC in 3 weeks Other cirrhosis of liver (HCC): Patient notably struggled with volume overloaded status during her admission, though due to the presence of GI bleeding she required several transfusions that likely provided excess volume. -Continue current diuretic regiment of Lasix 20 mg daily and spironolactone 50 mg daily -Advised patient to monitor her weights daily. Should her weight elevate to greater than 208 poundsadvised that she could take an additional 20 mg dose of the Lasix until her weight drops to 205 pounds Chronic pain syndrome: Chronic and is accurately described by the inpatient internal medicine service multifactorial. Patient has a longstanding history of chronic pain and drug-seeking behavior but also has numerous sources of significant abdominal discomfort including her duodenal ulcer, splenic embolism and progressively worsening portal vein thrombus. Unfortunately she is unable to take acetaminophen due to her history of thrombocytopenia and she is unable to take any form of NSAID due to GI bleed history. She has had a notable escalation in her Dilaudid dosing freqeuncy since admission and we discussed that this pattern was not sustainable today. We agreed to continue her current dose of Dilaudid 2 mg every 6 for remainder of this week. For her next 28 day refill I will provide her an 84 tablet pill count. This would allow her to take on average three tablets of dilaudid 2 mg dailyfor this period. We discussed that our goal would be for her to taper her consumption of dilaudid gradually from 4 tablets to 2 tablets in a 24 hour period. Patient was receptive to this plan. 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 She has had notable improvement in her renal function in recent months so we could consider prescribing oxycodone in the future. This would allow us to eventually convert the majority of her opiate dose to a long acting agent and avoid the risk of frequent immediate release agents. -Dilaudid refill provided for the month of October. Prescription details highlighted in bold above. -Will have patient return to clinic as scheduled in 2 months Healthcare maintenance Health Maintenance Topic Date Due [...] (2 of 2) 10/29/2019 ??? COVID-19 Vaccine (3 - Pfizer risk 4-dose series) 06/12/2021 ??? Behavioral Health Screen 06/12/2022 ??? Pneumococcal Immunization (4 of 4 - PPSV23) 2025 ??? Tetanus (Adult) Immunization 03/17/2029 ??? HIV Screening Completed ??? Hepatitis C Screen Completed ??? Influenza Immunization (Adult) Completed ??? Pertussis (Adult) Immunization Discontinued F/u: As scheduled I spent a total of 45 minutes with this patient today face to face, in chart review and in documentation and 35 minutes of that time was spent on education and counseling for recent GI bleed, cirrhosis of the liver, volume overloaded status, portal vein thrombosis, chronic pain syndrome. Some of this note was transcribed with [employer] software. While it was proofread, it may still contain unnoticed grammatical or word errors due to incorrect transcribing. Emigdio Veronica MD 10/21/2021 11:27 documented in this encounter Plan of Treatment Upcoming Encounters Date Type Department Care Team (Late st Contact Info) Description 01/04/2025 13:00 EST Office Visit [facility] Ophthalmology - [address] [phone] Gagandeep Rome MD [address] [place] [address] [address] [place] [phone] 02/11/2025 13:30 EDT Telemedicine [facility] Hematology & Oncology [address] [phone] Dana Padilla MD [address] [place] [address] [address] [place] [address] Pending Results Name Type Priority Associated Diagnoses Date /Time UPPER ENDOSCOPY (EGD) GI Routine Gastrointestinal hemorrhage associated with duodenal ulcer 01/13/2022 8:05 EST Scheduled Orders Name Type Priority Associated Diagnoses Orde r Schedule UPPER ENDOSCOPY (EGD) GI Routine Gastrointestinal hemorrhage associated with duodenal ulcer Expected: 01/19/2022 (Approximate), Expires: 04/21/2023 documented as of this encounter Visit Diagnoses Diagnosis Gastrointestinal hemorrhage associated with duodenal ulcer- Primary Other cirrhosis of liver (HCC-CMS) Chronic pain syndrome Portal vein thrombosis Healthcare maintenance Routine general medical examination at a health care facility documented in this encounter Discontinued Medications Medication Sig Discontinue Reason Start Date End Da te HYDROmorphone (DILAUDID) 2 mg tablet Take 1 Tablet by mouth every 6 hours as needed for up to 7 days for Pain. Daily Max: 8 mg Reorder 10/19/2021 10/21/2021 documented as of this encounter Orders Lab Orders Without Results Count Last Ordered D ate First Ordered Date COMPLETE BLOOD COUNT 1 10/21/2021 documented in this encounter Care Teams Armhole Presser Relationship Specialty Start Date End Date Emigdio Veronica MD [address] [place] [phone] PCP - General Internal Medicine - Primary Care 05/22/20 02/21/24 Starr Paige MD [address] [place] [phone] Hematology 10/08/21 06/09/22 documented as of this encounter
--- OUTSIDE RECORDS SUMMARY | 2024-11-22 17:10 | XMS_ITS | Encounter Summary ---
Author Organization [facility] Address [address] [place] [address] Care Team Providers Care Cardiology Physician Assistant Name Role Phone Emigdio Veronica MD Primary Care Provider + Starr Paige MD Unavailable [phone] Reason for Visit * Reason Comments GI Bleeding Arrives via [facility] EM S from PCP office with reports of recent surgery associated with spleen? (10 days ago)- reports pt has been in bed for last 5 days, increased weakness and fatigue, unable to eat or drink. Pt reporting multiple episodes of loose bloody stools- reports they are dark not bright red blood. Associated abdominal pain * Auth/Cert Specialty Diagnoses / Procedures Referred By Contac t Referred To Contact Diagnoses GI bleeding GI bleed Referral ID Status Reason Start Date Expiration Date Visits Re quested Visits Authorized [id number] 1 1 Encounter Details Date Type Department Care Team (Late st Contact Info) Description 10/08/2021 14:22 EST - 10/17/2021 11:55 EST Hospital Encounter [facility] General Medicine Unit [address], [place] [id number] Laxmi Cai MD [address] [facility], [address] [place] [id number] Olesya Silva MD MPH [address] [phone] Josefina Beckford MD MPH [address] [phone] GI bleeding (Primary Dx); Gastrointestinal hemorrhage with melena; Decompensated hepatic cirrhosis (HCC-CMS) (HCC); Acute blood loss anemia; Epigastric pain; Chronic obstructive pulmonary disease, unspecified COPD type (HCC-CMS) (HCC) (HCC-CMS); Hypersplenism; Duodenal ulcer; Gastrointestinal hemorrhage associated with peptic ulcer; Fever, unspecified fever cause; Gastrointestinal hemorrhage associated with duodenal ulcer; Other ascites Discharge Disposition: Home or Self Care Social [...] 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 Not on file Not on file Not o n file documented as of this encounter Last Filed Vital Signs Vital Sign Reading Time Taken Comments Blood Pressure 104/57 10/17/2021 0825 EST Pulse 73 10/17/2021 0520 EST Temperature 36.9 ??C (98.4 ??F) 10/17/2021 0520 EST Respiratory Rate 20 10/17/2021 0520 EST Oxygen Saturation 96% 10/17/2021 0520 EST Inhaled Oxygen Concentration - - Weight 95.1 kg (209 lb 9.8 oz) 10/17/[address] Height 162.6 cm (5' 4) 10/08/20211954 EST Body Mass Index 35.98 10/08/20211954 EST documented in this encounter Functional Status [...] of Assessment Author No 10/08/2021 22:00 Lala Perace RN documented as of this encounter Mental Status * Because of a physical, mental, or emotional condition, do you have serious difficulty concentrating, remembering, or making decisions? (5 years old or older) Answer Entry Date Author No 10/08/2021 22:00 Lala Pearce RN documented in this encounter Discharge Summaries * Josefina Beckford MD MPH - 10/17/2021 1146 EST HOSPITAL MEDICINE DISCHARGE SUMMARY Primary Care Provider: Emigdio Veronica Attending Physician: Dr. Josefina Beckford Admit Date: 10/08/21 Discharge Date: 10/17/21 Disposition (location): Home Condition at Discharge: Improved Reason for Admission (chief complaint): melena, abdominal pain Principal/Final Diagnosis: GI bleeding Acute blood loss anemia Chronic pain syndrome with concern for drug seeking behavior Decompensated cirrhosis PUD with gastritis Transition of care: [facility] Transition of Care report automatically routed to PCP office on discharge. Clinical Issues Needing Follow-up 1. Pertinent medication changes: Pantoprazole BID, sucralfate 2. Recommended follow-up tests/procedures needed: N/A 3. Anticoagulation on discharge: No Recent Labs 10/17/21 0539 INR 1.3* 4. Changes to goals care at time of discharge (if applicable): N/A Hospital Course: Tara Boothe is a 61 y.o. female with a PMHx of decompensated QUIROZ cirrhosis (portal htn, hepatic encephalopathy, small esophageal varices on EGD in 2019) w/ associated thrombocytopenia/hypersplenism s/p partial splenic embolization (09/28/21), portal vein thrombosis, Hep C, asthma, COPD (no homeO2), HUEY not on CPAP, hypothyroidism, & anxiety/depression??who presented to the ED with melenax 3 days and persistent abdominal pain since last discharged on 10/02/21 and admitted for GI bleed. ?? In the ED she was tachycardic, other vital signs were stable. Labs were significant for Na 135, K 3.6, Cr 0.79, Ca 7.8, WBC 12.04, Hgb 7.0, Hct 21, PLT 202. Pt was started on ceftriaxone and octreotide following CTA abdomen that showed no evidence of active arterial extravasation to suggest active h emorrhage, increase in nonocclusive thrombus in main portal vein, and new wall thickening of 1st and 2nd portions of the duodenum that could indicate increased portal venous thrombus or HTN, or possible ulcer. She was additionally given 40 mg IV protonix and 1 unit of blood. ?? GI was consulted and performed EGD that showed large clean based duodenal ulcer (+mild portal gastropathy, no esophageal varices). Biopsy negative for H. Pylori, dysplasia, and malignancy. GIB sourcelikely the duodenal ulcer and portal gastropathy, pantoprazole 40 mg IV BID given, bleeding monitored with CBCs. Hgb initially stabilized during her stay, however on 10/13/21, Hgb dropped to 6.8 withseveral episodes of melena. Another unit of blood was transfused. On 10/14, hgb was downtrending to7.1, received another unit of blood and EGD was scheduled that afternoon. EGD revealed stomach had a chicken wire appearance to mucosa. GEJ had a post-fundoplication appearance. No fresh or old blood. Pyloric channel ulcer noted extending into duodenal bulb that was clean based and denuded; no active bleeding, visible vessel noted. A large posterior duodenal sweep ulcer noted as seen on previous EGD. Again, ulcer was large but clean- based without visible vessel or active bleed. GI recommended PPI BID for three months, then daily after. The cause of her acute on chronic abdominal pain was likely multifactorial in setting of recent splenic embolization, duodenal ulcer and possibly related to known portal vein thrombus. We gave sucralfate with meals, started a GI cocktail. Her HAT PRESSER dilaudid was temporarily increased then decreased several days before discharge. Chronic portal vein thrombus present, increased in size and nonocclusive. Follows with Hematology and was on ppx lovenox in the past, but only for a short time. Heme will continue outpatient follow-up. Gi recommended against treatment of her portal vein clot 2/2 bleedingrisk and limited data suggesting treatment in her case. Pt became volume overloaded during her stay and was diuresed appropriately with spironolactone 100 mg??and lasix PO 40 mg. Was transitioned to HAT PRESSER 20 mg lasix before discharge. Also developed a fever, unclear etiology. Was on ceftriaxone for a week for SBP prophylaxis, no ascites present for diagnostic paracentesis.Covid swab, expanded respiratory and influenza panels ordered, results negative. For her HUEY, a sleep study on 11/27/20 recommended CPAP, but she doesn't wear CPAP. She should f/u with pulmonology outpatient, continue 2L O2 overnight. HAT PRESSER levothyroxine, sertraline and trazodone were continued. She was discharged with an order for CBCs drawn early the upcoming week, and f/u with PCP on 10/20. She was instructed to continue taking sucralfate and pantoprazole BID for 3 months then daily after. Relevant Imaging/Procedures Performed: CT Abdomen/Pelvis 10/08/21 IMPRESSION ??1. No evidence of active arterial extravasation to [...] cirrhosis with stigmata of portal venous hypertension. EGD 10/09/21 No evidence of active bleeding or old blood. Esophagus: normal mucosa, no varices Stomach: mild portal gastropathy. Distorted pylorus. Otherwise normal mucosa. Random cold forceps biopsied for H pylori. Duodenum: large non-bleeding clean-based ulcer without bleeding stigmata in duodenal bulb extendinginto sweep. Normal mucosa in examined portion of duodenum. EGD 10/14/21 Esophagus: normal Stomach: chicken wire appearance to mucosa. GEJ had a post-fundoplication appearance. No fresh or old blood. Pyloric channel ulcer noted extending into duodenal bulb that was clean based and denuded;no active bleeding, visible vessel noted Duodenum: large posterior duodenal sweep ulcer noted as seen on previous EGD. Again, ulcer large but clean-based without visible vessel or active bleed Results Pending at Discharge: Test results still pending from this admission None Upcoming Appointments Oct 20, 2021 15:45 Office Visit Medium with Emigdio Veronica MD [facility] - [place] ([facility]) [address] [place] [address] Dec 24, 2021 8:15 Office Visit Medium with Emigdio Veronica MD [facility] - [place] ([facility]) [address] [place] [address] Follow-up labs and tests Complete Blood Count Complete by: Oct 17, 2021 (Approximate) Authorizing Provider: Val Morales MD CHASTIDY ROLDAN, MD 10/18/2021 20:51 PGY-1 Internal Medicine ATTENDING ATTESTATION: Date of service: 10/17/2021 I interviewed and examined the patient; reviewed interval labs, events, and notes; and discussed the case with the medicine house staff team. I agree with and edited the findings and plan of care as documented in the discharge summary above. I reviewed the plan of care and discharge instructions with the patient. Pt continued to report significant abdominal pain throughout her hospital course. However, pt always appeared comfortable and without distress. Also, despite increasing or decreasing her pain medications patient did not report a change in her pain. There is a strong suspicion for narcotic seeking behavior and has been mentioned previously in her chart. I am not sure pt is being honest regarding her prescriptions and how much she takes. Pt will need BID PPI for at least 12 weeks with a repeat EGD to assess the ulcer as there is a riskfor stricturing. Pt will need daily PPI thereafter. Total unit time I spent in the care of the patient today: 40 Minutes Josefina Beckford MD MPH [facility] Inpatient Service 10/19/2021 16:00 documented in this encounter Discharge Instructions * Discharge Instr - AVS First Page* Val Morales MD - 10/17/2021 10:42 EST Get labs drawn on Tuesday to check hemoglobin Follow up with PCP on 11/19 documented in this encounter Medications at Time of Discharge OXYGEN-AIR DELIVERY SYSTEMS MISCIndications:2 L @ night via nC 2 L by misc (non-drug; combo route) route at bedtime. albuterol 90 mcg/actuation inhaler Inhale 1-2 Puffs as directed every 4 hours as needed for Wheezing. 1 Inhaler 04/13/2021 3 furosemide (LASIX) 20 mg tablet Take 1 every morning for fluid in legs; if swelling is worse than usual then take 2 every morning. Max daily dose is 40 mg per day. 180 Tablet 1 09/18/2021 2 HYDROmorphone (DILAUDID) 2 mg tablet Take 1 Tablet by mouth every 6 hours as needed for Pain. Daily Max: 8 mg 10 Tablet 10/17/2021 1 HYDROmorphone (DILAUDID) 4 mg tablet Take 0.5 Tablets by mouth every 4 hours as needed for Pain. Daily Max: 12 mg 10 Tablet 10/02/2021 1 levothyroxine (SYNTHROID) 25 mcg tablet Take 1 [...] HFA aerosol inhaler inhalerIndications:C OPD with asthma ([facility]) Inhale 2 Puffs as directed daily. 1 Inhaler 1 07/08/2021 1 documented as of this encounter Ordered Prescriptions Prescription Sig Dispense Quantity Refills Last Filled Start Date End Date HYDROmorphone (DILAUDID) 2 mg tablet Take 1 Tablet by mouth every 6 hours as needed for Pain. Daily Max: 8 mg 10 Tablet 10/17/2021 10/19/2021 sucralfate (CARAFATE) 100 mg/mL suspension Take 10 mL by mouth 4 times daily (before meals and at bedtime). 420 mL 2 10/17/2021 12/09/2021 pantoprazole (PROTONIX) 40 mg tablet Take 1 Tablet by mouth 2 times daily. 30 Tablet 3 10/17/2021 01/05/2022 documented in this encounter Discharge Disposition Disposition Code Departure Means Destination Home or Self Group Home documented in this encounter Progress Notes * Josefina Beckford MD MPH - 10/16/2021 2322 EST Medicine Progress Note Service Date: 10/16/2021 Admit Date: 10/08/2021 14:22 Reason for Admission: 61 y.o. female admitted with a chief complaint of melena and now with a principal diagnosis of GI bleed. 24 Hour Events: NAEO Subjective/Objective Subjective Phyliss was seen eating breakfast at the bedside this morning, feeling slightly better than yesterday, continues to endorse abdominal pain. Still feels nauseous, but her appetite is mildly improved. She no longer feels feverish. Says she has been elevating her legs due to increasing LE edema. Last night she had two episodes of watery melanotic stools. No fever, chills, nausea, vomiiting. No dysuria, no cough. Review of Systems A ten point review of systems was performed and was negative except for pertinent positives noted in the HPI Objective Vital Signs Temp: [36.6 ??C (97.9 ??F)-37.8 ??C (100 ??F)] , Heart Rate: [72 BPM-86 BPM] , Resp: [16-20] , BP: (100-111)/(53-58) , SpO2: [6 %-98 %] Physical Exam Constitutional: Appears in no acute distress. Eyes: No scleral icterus Neck: Full ROM, supple Heart: Normal S1, S2, no m/r/g Strong peripheral pulses Lungs: No Respiratory distress, symmetrical chest expansion. Crackles over lower lung godwin, wheezing diffusely bilaterally Abdomen: Soft, upper abd tenderness, non rigid, voluntary guarding. Appears mildly distended. No pulsatile masses. Skin: No overt rashes, bruising, or lesions on exposed skin; pallor Extremities: Wearing compression stockings. Moving all 4 extremities spontaneously, warm and well perfused. 1-2+ pitting edema to knees bilaterally Neuro:aox3, Grossly neurologically intact with normal speech. No asterixis Psych: Answering questions appropriately Is PICC or central line present? No, PICC/Central line not present. Labs Reviewed Recent Labs 10/15/2153310/16/21 0539 WBC 6.29 5.53 RBC 2.81* 2.75* HGB 8.0* 7.8* HCT 24.1* 24.1* PLT 196 167 MCV 86 88 MCH 28.5 28.4 MCHC 33.2 32.4 Recent Labs 10/15/2153310/16/21 0539 NA 135* 135* K 3.9 3.8 CL 101 101 CO2 32 31 BUN 10 11 CREATININE 0.87 0.84 CALCIUM 8.2* 8.0* LABALBU 2.5* 2.6* Recent Labs 10/15/2153310/16/21 0539 PROTIME 15.2* 15.4* INR 1.3* 1.3* PTT 28 28 Recent Labs 10/15/2134 10/16/21 0539 TBIL 0.7 0.6 ALKPHOS 103 94 AST 28 33 ALT 13 14 Imaging Reviewed: I have independently visualized images CT ANGIO ABDOMEN PELVIS Result Date: 10/08/2021 1. No evidence of active arterial extravasation [...] cirrhosis with stigmata of portal venous hypertension. Assessment/Plan Assessment Tara Boothe is a 61 y.o. female with a PMHx significant for decompensated QUIROZ cirrhosis (portal htn, hepatic encephalopathy, small esophageal varices on EGD in 2019) w/ associated thrombocytopenia/ hypersplenism s/p partial splenic embolization (09/28/21), portal vein thrombosis, Hep C, asthma,COPD (on O2 at night), HUEY not on CPAP, hypothyroidism, & anxiety/depression who presented to ED with abdominal pain and melena and admitted for GI bleed. EGD showing large clean based duodenal ulcer (+mild portal gastropathy, no esophageal varices). Biopsy negative for H. Pylori, dysplasia, and malignancy. Hgb at 8 today after receiving two transfusions in the past two days. after being transfused yesterday. Underwent an EGD this afternoon, found a large posterior duodenal ulcer and pyloric ulcer extending into duodenal bulb. She continues to endorse abdominal pain, IR diagnostic paracentesis was ordered, cancelled because there wasn't fluid to drain. Also ordered expanded respiratory panel, influena A, B, RSV, and covid testing. Plan #Acute GI Bleed with acute blood loss anemia: h/h stable. S/p 2 egd. - s/p ceftriaxone 1g in ED, continue CTX 1 g daily for total 7 days (10/09-10/15) - GI consulted -EGD performed on 10/09/21 and 10/15/21->duodenal and pyloric channel ulcers, no active bleeding -EGD biopsy with mild focal active gastritis, reactive gastropathy, neg H. Pylori, neg dysplasia and malignancy -PPI BID for three months, then daily after - pantoprazole 40 mg IV BID switched to PO today - s/p 1U on admission, 1 unit on 10/13 and 1 unit 10/14 - Hold lovenox for GIB #fever:unclear etiology. Will evaluate for sbp given abd pain. No urinary symptoms and no pulmonarysymptoms. Viral panel sent. Remains afebrile - monitor #Acute on Chronic Abdominal pain: etiology likely multifactorial in setting of recent splenic embolization, duodenal ulcer and possibly related to known portal vein thrombus. Pain does not change with increased dose of pain medication. - Dilaudid 2mg PO Q6h prn for now -H/o narcotic seeking behavior; pain likely 2/2 duodenal ulcer/gastritis. - continue sucralfate before meals and at bedtime - continue GI cocktail admin \ #Hx Decompensated QUIROZ Cirrhosis C/b portal HTN and non-occlusive portal vein thrombosis. S/p partial splenic embolization with distal splenic infarction for chronic thrombocytopenia on 09/28/21. No evidence of HE. - MELD Na Score = 13 (10/16/21) - Lasix PO 20 mg - POCUS for ascites, potential diagnostic paracentesis - Check CMP, Coags daily - strict I&Os #Hyponatremia: stable - Asymptomatic - Likely 2/2 cirrhosis and poor solute #Chronic portal vein thrombus: interval increase in size, nonocclusive. -Follows with Hematology and was on ppx lovenox in the past, but only for a short time. Since it's chronic, appreciate GI recommendations not to treat as bleeding risk out weights limited benefit -Heme outpatient follow-up -Hold lovenox 40u daily for downtrending Hgb #COPD - albuterol nebulizer 2.5 mg BID + PRN - ipatropium-albuterol nebulizer q6hrs - budesonide-formoterol inhaler PRN - expanded respiratory panel PCR - influenza A, B, RSV PCR - COVID 19 test #HUEY Sleep study 11/27/20, which recommended CPAP. Pt does not currently wear CPAP at home. - f/u with pulmonology as outpatient - continue 2L O2 overnight #Chronic Hypothyroidism - continue HAT PRESSER levothyroxine #Depression - continue HAT PRESSER sertraline #Insomnia - HAT PRESSER trazodone - continue ramelteon #VTE Prophylaxis Held due to GI bleed Code: Full Discharge Plan Uncertain Consults GI Val Morales MD 10/16/2021 23:22 PGY-1 Internal Medicine Pager:[phone] or Cortext ATTENDING ATTESTATION: Date of service: 10/16/2021 I have interviewed and examined the patient. I personally reviewed laboratories studies, radiographic studies, ECG, and prior records. I discussed the case with: the medicine house staff team. I agree with and edited (in Blue) the findings and plan of care as documented in the note above. H/h stable. No recurrence of bleed. Has 1 low grade temp, remains afebrile. No source of infection,w/up negative. No ascites for para. Medically stable for d/c, however pt does not have keys to access her home until tomorrow. Josefina Beckford MD MPH [facility] Inpatient Service 10/17/2021 7:03 * Gaetano Campbell MD - 10/16/2021 1430 EST GI Progress Note 61 y.o. female with a PMHx significant for decompensated QUIROZ cirrhosis (portal htn, hepatic encephalopathy, small esophageal varices on EGD in 2019) w/ associated thrombocytopenia/ hypersplenism s/ppartial splenic embolization (09/28/21), portal vein thrombosis, Hep C, asthma, COPD (on O2 at night), HUEY not on CPAP, hypothyroidism, & anxiety/depression who presented to ED with abdominal painand melena and admitted for GI bleed. EGD showing large clean based duodenal ulcer (+mild portal gastropathy, no esophageal varices). Biopsy negative for H. Pylori, dysplasia, and malignancy. Underwent an EGD 10/14/21, found a large posterior duodenal ulcer and pyloric ulcer extending into duodenal bulb but no active bleeding and no high risk stigmata on ulcers. No interventions done, PPIIV BID continued. 10/16/21: She continues to report moderate to severe abdominal pain. IR diagnostic paracentesis wasordered 10/16/21, cancelled down in IR suite after US exam because there wasn't fluid to drain. Physical Exam General: In NAD, Appropriately conversant HEENT: NCAT, PERRL, MMM CV: RRR, no m/r/c/g Resp: CTAB, comfortable on RA Abdomen: nondistended, +BS, soft, tender to palpation but no rebound or guarding, no HSM appreciated Ext: no edema, no ecchymoses or rashes Recommendations: - patient's continued abdominal pain is concerning and could be multifactorial (large duodenal ulcers in concert with her known PVT and possible necrosis from recent splenic embolization on 09/28/21) -if pain continues and/or worsens, would recommend repeat CT Angio A/P to assess for possible bowelischemia due to venous congestion as a source of her pain - continue to monitor H/H, VS, transfuse to Hgb>7 - continue PPI IV BID - avoid NSAIDs NISA Ling MD Gastroenterology and Hepatology Fellow #[id number] Attestation statement: I performed or was present during the brown or critical portions of the visit and participated in the management of the patient. I agree with the findings and plan of care documented in the resident's/fellow's note. Patient is perhaps a little better today, but with ongoing abdominal discomfort. While she has some chronic pain as well as PUD which may explain her exacerbation, she also has known PV and SMV thrombus. This appears to be acute, but if her pain isn't improving,would be reasonable for a repeat CT with contrast to assess for worsening thrombus that could be causing outflow obstruction and subsequent bowel congestion/ischemia. * Alethea Avelar RN - 10/16/2021 0904 EST Procedure: Paracentesis Pt arrived from B4 on RA. Able to ambulate self to the bathroom. Moderate pain in ABD area. After the US prior to procedure start it was found to not have fluid to be drained and no indication for procedure. B4 informed. Patient sent back in stable condition * Tiny Carroll, RT - 10/15/2021 1643 EST Respiratory Progress Note Indications for Respiratory therapy: COPD history Data Vitals: Heart Rate: 87 BPM, Resp: 17, SpO2: 98 % FIO2/O2 Device: O2 Device: None, FIO2 %: 21 % RT Orders: BID Albuterol BID Symbicort Action/Events Respiratory events Tolerated home routine Albuterol neb well. RN had given Symbicort MDI already. Patient in room air,no distress noted. She wears 2L nasal cannula at night. RT SRUTHI 10/15/21 * Josefina Beckford MD MPH - 10/15/2021 0736 EST Medicine Progress Note Service Date: 10/15/2021 Admit Date: 10/08/2021 14:22 Reason for Admission: 61 y.o. female admitted with a chief complaint of melena and now with a principal diagnosis of GI bleed. 24 Hour Events: - EGD - Hgb 8.2 at 9 PM - s/p transfusion yesterday AM Subjective/Objective Subjective Phyliss was seen eating breakfast at the bedside this morning. Is feeling more tired than usual, endorses feeling feverish with chills. She is concerned about the change in her Dilaudid dosing regimen. She continues to have significant nausea and lightheadedness. Pain is unrelieved with current pain regimen. Says she has been elevating her legs due to increasing LE edema. Last night she had one episode of watery melanotic stools. No dysuria, no cough Review of Systems A ten point review of systems was performed and was negative except for pertinent positives noted in the HPI Objective Vital Signs Temp: [36.7 ??C (98.1 ??F)-38.2 ??C (100.8 ??F)] , Heart Rate: [80 BPM-90 BPM] , Resp: [12-19] , BP: (79-118)/(40-69) , SpO2: [91 %-99 %] Physical Exam Constitutional: Appears in no acute distress. Eyes: No scleral icterus Neck: Full ROM, supple Heart: Normal S1, S2, no m/r/g Strong peripheral pulses Lungs: No Respiratory distress, symmetrical chest expansion. Crackles over lower lung godwin, wheezing diffusely bilaterally Abdomen: Soft, upper abd tenderness, non rigid, voluntary guarding. Tympanitic, appears distended. No pulsatile masses. Skin: No overt rashes, bruising, or lesions on exposed skin; pallor Extremities: Wearing compression stockings. Moving all 4 extremities spontaneously, warm and well perfused. 1-2+ pitting edema to knees bilaterally Neuro:aox3, Grossly neurologically intact with normal speech. No asterixis Psych: Answering questions appropriately Is PICC or central line present? No, PICC/Central line not present. Labs Reviewed Recent Labs 10/14/21 1903 10/15/21 0534 WBC 6.19 6.29 RBC 3.03* 2.81* HGB 8.2* 8.0* HCT 26.1* 24.1* PLT 202 196 MCV 86 86 MCH 27.1 28.5 MCHC 31.4* 33.2 Recent Labs 10/12/21 0739 10/13/21 0634 10/14/21 0722 10/15/21 0534 NA 132* < > 135* 135* K 3.8 < > 4.1 3.9 CL 101 < > 101 101 CO2 25 < > 31 32 BUN 8* < > 9* 10 CREATININE 0.74 < > 0.81 0.87 CALCIUM 8.1* < > 8.1* 8.2* MG 1.9 -- -- -- LABALBU 3.1* < > 2.6* 2.5* < > = values in this interval not displayed. Recent Labs 10/14/21 0723 10/15/21 0534 PROTIME 15.0* 15.2* INR 1.3* 1.3* PTT 29 28 Recent Labs 10/14/21 0722 10/15/21 0534 TBIL 0.8 0.7 ALKPHOS 93 103 AST 28 28 ALT 12 13 Imaging Reviewed: I have independently visualized images CT ANGIO ABDOMEN PELVIS Result Date: 10/08/2021 1. No evidence of active arterial extravasation [...] cirrhosis with stigmata of portal venous hypertension. Assessment/Plan Assessment Tara Boothe is a 61 y.o. female with a PMHx significant for decompensated QUIROZ cirrhosis (portal htn, hepatic encephalopathy, small esophageal varices on EGD in 2019) w/ associated thrombocytopenia/ hypersplenism s/p partial splenic embolization (09/28/21), portal vein thrombosis, Hep C, asthma,COPD (on O2 at night), HUEY not on CPAP, hypothyroidism, & anxiety/depression who presented to ED with abdominal pain and melena and admitted for GI bleed. EGD showing large clean based duodenal ulcer (+mild portal gastropathy, no esophageal varices). Biopsy negative for H. Pylori, dysplasia, and malignancy. Hgb at 8 today after receiving two transfusions in the past two days. after being transfused yesterday. Underwent an EGD this afternoon, found a large posterior duodenal ulcer and pyloric ulcer extending into duodenal bulb. She continues to endorse abdominal pain that appears more diffuse currently, will do POCUS for ascites and possibly perform a diagnostic paracentesis. Also ordered expanded respiratory panel, influena A, B, RSV, and covid testing. Plan #Acute GI Bleed with acute blood loss anemia: h/h stable. S/p 2 egd. - s/p ceftriaxone 1g in ED, continue CTX 1 g daily for total 7 days (10/09-10/15) - GI consulted -EGD performed on 10/09/21 and 10/15/21->duodenal and pyloric channel ulcers, no active bleeding -EGD biopsy with mild focal active gastritis, reactive gastropathy, neg H. Pylori, neg dysplasia and malignancy -PPI BID for three months, then daily after - pantoprazole 40 mg IV BID - s/p 1U on admission, 1 unit on 10/13 and 1 unit 10/14 - Hold lovenox for GIB #fever:unclear etiology. Will evaluate for sbp given abd pain. No urinary symptoms and no pulmonarysymptoms. Viral panel sent. - monitor #Acute on Chronic Abdominal pain: etiology likely multifactorial in setting of recent splenic embolization, duodenal ulcer and possibly related to known portal vein thrombus. Pain does not change with increased dose of pain medication. - Dilaudid 2mg PO Q6h prn for now -H/o narcotic seeking behavior; pain likely 2/2 duodenal ulcer/gastritis. - continue sucralfate before meals and at bedtime - continue GI cocktail admin - POCUS for ascites, potential diagnostic paracentesis #Hx Decompensated QUIROZ Cirrhosis C/b portal HTN and non-occlusive portal vein thrombosis. S/p partial splenic embolization with distal splenic infarction for chronic thrombocytopenia on 09/28/21. No evidence of HE. - MELD Na Score = 13 (10/15/21) - Spironolactone 100 mg and Lasix PO 40 mg - POCUS for ascites, potential diagnostic paracentesis - Check CMP, Coags daily - strict I&Os #Hyponatremia: stable - Asymptomatic - Likely 2/2 cirrhosis and poor solute #Chronic portal vein thrombus: interval increase in size, nonocclusive. -Follows with Hematology and was on ppx lovenox in the past, but only for a short time. Since it's chronic, appreciate GI recommendations not to treat as bleeding risk out weights limited benefit -Heme outpatient follow-up -Hold lovenox 40u daily for downtrending Hgb #COPD - albuterol nebulizer 2.5 mg BID + PRN - ipatropium-albuterol nebulizer q6hrs - budesonide-formoterol inhaler PRN - expanded respiratory panel PCR - influenza A, B, RSV PCR - COVID 19 test #HUEY Sleep study 11/27/20, which recommended CPAP. Pt does not currently wear CPAP at home. - f/u with pulmonology as outpatient - continue 2L O2 overnight #Chronic Hypothyroidism - continue HAT PRESSER levothyroxine #Depression - continue HAT PRESSER sertraline #Insomnia - HAT PRESSER trazodone - continue ramelteon #VTE Prophylaxis Held due to GI bleed Code: Full Discharge Plan Uncertain Consults GI Val Morales MD 10/15/2021 7:36 PGY-1 Internal Medicine Pager:[phone] or Cortext ATTENDING ATTESTATION: Date of service: 10/15/2021 I have interviewed and examined the patient. I personally reviewed laboratories studies, radiographic studies, ECG, and prior records. I discussed the case with: the medicine house staff team. I agree with and edited (in Blue) the findings and plan of care as documented in the note above. Josefina Beckford MD MPH [facility] Inpatient Service 10/16/2021 11:20 * Caesar Ling MD - 10/14/20211918 EST Brief Procedure Note Indication/HPI melena EGD performed in endo suite with MAC anesthesia Procedure Diagnosis Esophagus: normal Stomach: chicken wire appearance to mucosa. GEJ had a post-fundoplication appearance. No fresh or old blood. Pyloric channel ulcer noted extending into duodenal bulb that was clean based and denuded;no active bleeding, visible vessel noted Duodenum: large posterior duodenal sweep ulcer noted as seen on previous EGD. Again, ulcer large but clean-based without visible vessel or active bleed Recommendations - continue PPI BID for at least three months to allow for ulcer healing. Can change to once daily dosing thereafter - transfuse to Hgb>7 - ok to advance diet as tolerated For details of procedure, please see full note in procedure or scanned media tab within [facility]. CAESAR LING MD Gastroenterology and Hepatology #[id number] Cosigned by Gaetano Campbell MD at 10/15/2021 8:45 EST * Anjali Ceballos, ELIER - 10/14/2021 1330 EST Nutrition Assessment Note: Initial Visit Patient Name: Tara Boothe Admission Date: 10/08/2021 Admission Dx: GI bleeding Reason for Visit: Identified at risk due to diagnosis BACKGROUND DATA Clinical Summary: Tara Boothe is a 61 y.o. female with a PMHx significant for decompensated QUIROZ cirrhosis (portal htn, hepatic encephalopathy, small esophageal varices on EGD in 2019) w/ associated thrombocytopenia/ hypersplenism??s/p partial splenic embolization (09/28/21), portal vein thrombosis, Hep C, asthma, COPD (no home O2), HUEY not on CPAP, hypothyroidism, & anxiety/depression??who presented to ED with abdominal pain and melena and admitted for GI bleed. EGD showing large clean based duodenal ulcer (+mild portal gastropathy, no esophageal varices). Biopsy negative for H. Pylori, dysplasia, and malignancy. Hgb downtrending, today at 7.1 after being transfused yesterday. Will undergo an EGD this afternoon, getting a unit transfused this PM. Continue diuresis today. Past Medical History: Diagnosis Date ??? Anemia ??? Anxiety ??? Asthma 12/10/2020 currently not taking - mild persistent - see dr. Veronica 11/20/2021 ??? Bleeding disorder (HCC-CMS) (HCC) ??? Bursitis right shoulder ??? C. difficile colitis 07/25/2015 Hospitalized after kidney stone removal ??? Chronic ITP (idiopathic thrombocytopenia) (HCC-CMS) (HCC) 12/10/2020 - see 11/20/2020 Dr. Veronica H&P, (managed by Starr Paige MD) ??? Chronic kidney disease slow to come back ??? Cirrhosis of liver (HCC-CMS) (HCC) ??? Clotting disorder (HCC-CMS) (HCC) ??? Community acquired pneumonia january 2021 ??? COPD exacerbation (HCC-CMS) (HCC) 04/26/2020 ??? Depression ??? Drug-seeking behavior Per Dr Amelia Tijerina and notes from [facility] patient misconstrued information to several providers about multiple concurrent opiate prescriptions ??? Environmental allergies ??? Exercise involving walking takes a walk daily for 20 minutes ??? GERD (gastroesophageal reflux disease) 12/10/2020 does not wake pt at night ??? Heartburn ??? Hemorrhagic disorder (HCC-CMS) (HCC) ??? History of general anesthesia ??? History of kidney stones ??? History of nephrolithiasis ??? History of peripheral edema 12/10/2020 - bilateral leg edema - see 11/20/2020 Dr. Benoit H&P ??? Hypersplenism syndrome ??? Hypersplenism syndrome ??? Hypotension 70-80/30-40 usually ??? Hypothyroidism ??? Joint replaced 199912/10/2020 nya knees ??? QUIROZ (nonalcoholic steatohepatitis) ??? Oxygen dependent 12/10/2020 HS ??? Pancytopenia (HCC) ??? Rheumatoid arthritis ??? Shortness of breath ??? Sleep apnea ??? Thrombocytopenia (HCC-CMS) (HCC) 12/10/2020 - see 11/20/2020 Dr. Veronica H&P, (managed by Starr Paige MD) ??? Thyroid disease Allergies on file: Metoclopramide, Morphine, Sulfa (sulfonamide antibiotics), Tylenol [acetaminophen], Flagyl [metronidazole], Aspirin, Injectafer [ferric carboxymaltose], Lyrica [pregabalin], Prochlorperazine, and Reglan [metoclopramide hcl] Subjective: Pt to EGD Current Nutrition Orders: Diet Order: NPO Physical Findings: NFPE: pt to procedure Digestive Systems: Last BM (10/14/21) Skin: WDL Edema: +3 Anthropometrics: Height: 162.6 cm (64) Wt Readings from Last 6 Encounters: 10/08/21 94 kg (207 lb 3.7 oz) 10/08/21 93 kg (205 lb) 09/28/21 93 kg (205 lb) 09/18/21 97.1 kg (214 lb) 09/09/21 98.6 kg (217 lb 4.8 oz) 07/30/21 86.2 kg (190 lb) BMI: Body mass index is 35.57 kg/m??. (obesity class I) Pertinent Medications: Current Facility-Administered Medications Medication Route Frequency ??? albuterol (ACCUNEB) nebulizer solution 2.5 mg nebulization BID ??? albuterol (ACCUNEB) nebulizer solution 2.5 mg nebulization Q4H PRN ??? lidocaine (XYLOCAINE) 2 % viscous solution 15 mL oral Q4H PRN And ? ? aluminum & magnesium hydroxide-simethicone (MYLANTA-DS) 400-400-40 mg/5 mL suspension 15 mLoral Q4H PRN ??? budesonide-formoterol HFA (SYMBICORT) 160-4.5 mcg/actuation inhaler 2 Puff inhalation BID ??? cefTRIAXone (ROCEPHIN) 1,000 mg in sodium chloride (NS MBP) 50 mL IVPB intravenous Q24H ??? furosemide (LASIX) tablet 40 mg oral DAILY ??? HYDROmorphone (DILAUDID) tablet 2 mg oral Q6H PRN ??? ipratropium-albuteroL (DUONEB) 0.5 mg-3 mg(2.5 mg base)/3 mL nebulizer solution 3 mL nebulization Q6H PRN ??? levothyroxine (SYNTHROID) tablet 25 mcg oral DAILY BEFORE BREAKFAST ??? lidocaine (PF) 10 mg/mL (1 %) injection 2 mg intradermal PRN ??? ondansetron (PF) (ZOFRAN) injection 4 mg intravenous Q4H PRN ??? pantoprazole (PROTONIX) injection 40 mg intravenous BID ??? ramelteon (ROZEREM) tablet 8 mg oral QHS ??? sertraline (ZOLOFT) tablet 50 mg oral DAILY ??? sodium chloride 0.9 % (flush) flush 5 mL intravenous Q8H ??? sodium chloride 0.9 % (flush) flush 5 mL intravenous Q8H ??? spironolactone (ALDACTONE) tablet 100 mg oral DAILY ? ? sucralfate (CARAFATE) suspension 1 g oral QID AC & HS ??? traZODone (DESYREL) tablet 250 mg oral QHS Facility-Administered Medications Ordered in Other Encounters Medication Route Frequency ??? albuterol (ACCUNEB) 2.5 mg /3 mL (0.083 %) nebulizer solution Relevant Labs: Lab Results Component Value Date WBC 5.27 10/14/2021 RBC 2.62 (L) 10/14/2021 HGB 7.1 (L) 10/14/2021 HCT 22.2 (L) 10/14/2021 MCV 85 10/14/2021 MCH 27.1 10/14/2021 PLT 196 10/14/2021 NA 135 (L) 10/14/2021 K 4.1 10/14/2021 CL 101 10/14/2021 CO2 31 10/14/2021 BUN 9 (L) 10/14/2021 CREATININE 0.81 10/14/2021 GLUCOSEFINGE 83 06/20/2017 CALCIUM 8.1 (L) 10/14/2021 MG 1.9 10/12/2021 Estimated Nutrition Needs: BEE: 1494kcal @ 94kg (MSJ) Kcal: 5348-6790 @ 1.1-1.2x BEE Protein: 97-109g @ 1.3g/kg/adjusted bodyweight - 2g/kg/IBW Estimated Nutrition Intake: 25-100% of recorded meals ASSESSMENT: Pt w/ variable PO intake since admission, eating 25-100% of recorded meals and has been off/on NPO and clear liquids d/t concern for GI bleed and for testing. NPO today for pending EGD, resume diet once medically appropriate. If unable to advance/tolerate diet, recommend considering nutrition support. If tolerating PO, recommend Nephrovite daily to cover micronutrient needs and nutrition will offer high protein supplements w/ meals. Continue to trend weight. Nutrition Risk Level: High (1) MEDICAL NUTRITION THERAPY PLAN: 1. Resume diet once medically appropriate - encourage PO intake - nutrition will offer high protein supplements w/ meals 2. If unable to advance/tolerate diet s/p procedure, consider nutrition support 3. Add Nephrovite daily 4. Monitor PO intake and BMs 5. Trend weight 6. Continue to monitor labs, I/Os, and skin ANJALI CEBALLOS CD (Call PAS or use Intelliweb to page RD covering this unit) * Josefina Beckford MD MPH - 10/14/2021 1109 EST Medicine Progress Note Service Date: 10/14/2021 Admit Date: 10/08/2021 14:22 Reason for Admission: 61 y.o. female admitted with a chief complaint of melena and now with a principal diagnosis of GI bleed. 24 Hour Events: - Hgb 7.8 at 6PM - Hgb 7.1 at 7AM - s/p transfusion yesterday AM Subjective/Objective Subjective Tara is doing alright this morning, says she has been using her compression stockings but still feels like her legs are not quite at her baseline. She continues to have significant nausea, lightheadedness, and 9/10 upper abdominal pain. Pain is unrelieved with current pain regimen. She is eatingsmall meals, dry heaved after dinner yesterday. Says she has been elevating her legs due to increasing LE edema. Yesterday she had three episodes of watery melanotic stools. No f/c Review of Systems A ten point review of systems was performed and was negative except for pertinent positives noted in the HPI Objective Vital Signs Temp: [36.6 ??C (97.9 ??F)-37.1 ??C (98.8 ??F)] , Heart Rate: [80 BPM-85 BPM] , Resp: [16-20] , BP:(102-123)/(57-73) , SpO2: [94 %-96 %] Physical Exam Constitutional: Appears in no acute distress. Eyes:No scleral icterus Neck: Full ROM, supple Heart: Normal S1, S2, no m/r/g Strong peripheral pulses Lungs: No Respiratory distress, symmetrical chest expansion. Crackles over lower lung godwin Abdomen: Soft, upper abd tenderness, non rigid, voluntary guarding. No pulsatile masses. Skin: No overt rashes, bruising, or lesions on exposed skin; pallor Extremities: Wearing compression stockings. Moving all 4 extremities spontaneously, warm and well perfused. 2+ pitting edema at the ankles BL Neuro:aox3, Grossly neurologically intact with normal speech. No asterixis Psych: Answering questions appropriately Is PICC or central line present? No, PICC/Central line not present. Labs Reviewed Recent Labs 10/13/21 1744 10/14/21 0723 WBC 7.18 5.27 RBC 2.86* 2.62* HGB 7.8* 7.1* HCT 24.0* 22.2* PLT 213 196 MCV 84 85 MCH 27.3 27.1 MCHC 32.5 32.0* Recent Labs 10/12/21 0739 10/12/21 0739 10/13/21 0634 10/14/21 0722 NA 132* < > 131* 135* K 3.8 < > 3.9 4.1 CL 101 < > 99 101 CO2 25 < > 26 31 BUN 8* < > 9* 9* CREATININE 0.74 < > 0.70 0.81 CALCIUM 8.1* < > 8.1* 8.1* MG 1.9 -- -- -- LABALBU 3.1* < > 3.0* 2.6* < > = values in this interval not displayed. Recent Labs 10/13/21 0634 10/14/21 0723 PROTIME 15.5* 15.0* INR 1.3* 1.3* PTT 28 29 Recent Labs 10/13/21 0634 10/14/21 0722 TBIL 0.7 0.8 ALKPHOS 112 93 AST 30 28 ALT 14 12 Imaging Reviewed: I have independently visualized images CT ANGIO ABDOMEN PELVIS Result Date: 10/08/2021 1. No evidence of active arterial extravasation [...] cirrhosis with stigmata of portal venous hypertension. Assessment/Plan Assessment Tara Boothe is a 61 y.o. female with a PMHx significant for decompensated QUIROZ cirrhosis (portal htn, hepatic encephalopathy, small esophageal varices on EGD in 2019) w/ associated thrombocytopenia/ hypersplenism s/p partial splenic embolization (09/28/21), portal vein thrombosis, Hep C, asthma,COPD (no home O2), HUEY not on CPAP, hypothyroidism, & anxiety/depression who presented to ED with abdominal pain and melena and admitted for GI bleed. EGD showing large clean based duodenal ulcer(+mild portal gastropathy, no esophageal varices). Biopsy negative for H. Pylori, dysplasia, and malignancy. Hgb downtrending, today at 7.1 after being transfused yesterday. Will undergo an EGD this afternoon, getting a unit transfused this PM. Continue diuresis today. Plan #Acute GI Bleed with acute blood loss anemia Melena x 3 days. CTA with no evidence of active arterial extravasation to suggest active hemorrhage. - s/p ceftriaxone 1g in ED, continue CTX 1 g daily for total 7 days - GI consulted, EGD performed on 10/09/21 - EGD biopsy with mild focal active gastritis, reactive gastropathy, neg H. Pylori, neg dysplasia and malignancy - pantoprazole 40 mg IV bid - s/p 1U on admission, 1 unit on 10/13 and 1 unit 10/14 - Repeat CBC at 2100 - Hold lovenox for GIB - NPO for EGD this afternoon #Acute on Chronic Abdominal pain: etiology likely multifactorial in setting of recent splenic embolization, duodenal ulcer and possibly related to known portal vein thrombus. Pain does not change with increased dose of pain medication. -Dilaudid 2mg PO Q6h prn for now -H/o narcotic seeking behavior; pain likely 2/2 duodenal ulcer/gastritis. - continue sucralfate before meals and at bedtime - continue GI cocktail admin #Hx Decompensated QUIROZ Cirrhosis C/b portal HTN and non-occlusive portal vein thrombosis. S/p partial splenic embolization with distal splenic infarction for chronic thrombocytopenia on 09/28/21. No evidence of HE, ascites or jaundice. - MELD Na Score = 13 (10/14/21) - Spironolactone 100 mg and Lasix PO 40 mg - Check CMP, Coags daily - strict I&Os #Hyponatremia: stable - Asymptomatic - Likely 2/2 cirrhosis and poor solute #Chronic portal vein thrombus: interval increase in size, nonocclusive. -Follows with Hematology and was on ppx lovenox in the past, but only for a short time. Since it's chronic, appreciate GI recommendations not to treat as bleeding risk out weights limited benefit -Heme outpatient follow-up -Hold lovenox 40u daily for downtrending Hgb #COPD - albuterol nebulizer 2.5 mg BID + PRN - ipatropium-albuterol nebulizer q6hrs - budesonide-formoterol inhaler PRN #HUEY Sleep study 11/27/20, which recommended CPAP. Pt does not currently wear CPAP at home. - f/u with pulmonology as outpatient - continue 2L O2 overnight #Chronic Hypothyroidism - continue HAT PRESSER levothyroxine #Depression - continue HAT PRESSER sertraline #Insomnia - HAT PRESSER trazodone - continue ramelteon #VTE Prophylaxis Held due to GI bleed Code: Full Discharge Plan Uncertain Consults GI Val Morales MD 10/14/2021 11:09 PGY-1 Internal Medicine Pager:[phone] or Cortext ATTENDING ATTESTATION: Date of service: 10/14/2021 I have interviewed and examined the patient. I personally reviewed laboratories studies, radiographic studies, ECG, and prior records. I discussed the case with: the medicine house staff team. I agree with and edited (in Blue) the findings and plan of care as documented in the note above. Josefina Beckford MD MPH [facility] Inpatient Service 10/14/2021 12:15 * Stacey Taylor - 10/13/2021 1218 EST Case Management Progress Note: Met with pt to discuss discharge planning. Pt states that she will not have any assistance at home until 10/16 since her children will be out or town for the holiday. She expressed concern for going home before then if there is no one to assist her. Currently pt is not medically ready for discharge. Stacey Taylor chief quality officer Pager #[phone] * Gaetano Campbell MD - 10/13/2021 1121 EST 61F w/ decompensated QUIROZ cirrhosis w/ portal hypertensive gastropathy and chronic non-occlusive PVT, PUD (H pylori negative 03/2021), Hx chronic thrombocytopenia/hypersplenism s/p partial splenic embolization (09/28/21) who was admitted for melena, now s/p EGD 10/09/21 without active bleeding but not able for persistent large pyloric channel/duodenal bulb clean-based ulcer without high-risk stigmata, mild portal gastropathy, no varices; biopsies negative for H pylori or dysplasia/malignancy. Remains HDS but endorses three black tarry BMs last night, none this morning. Hgb 7.3-->6.8, receiving 1 unit pRBCs. Denies melena, hematochezia. Patient Vitals for the past 24 hrs: BP Temp Temp src Pulse Resp SpO2 10/13/21 1057 107/60 36.7 ??C (98.1 ??F) Tympanic 87 18 97 % 10/13/21 1000 117/58 36.6 ??C (97.9 ??F) Tympanic 89 20 96 % 10/13/21 0848 -- -- -- -- 20 -- 10/13/21 0427 111/58 36.6 ??C (97.9 ??F) Tympanic -- 20 97 % 10/12/21 2218 128/60 37.7 ??C (99.9 ??F) Tympanic -- 16 95 % 10/12/21 2106 -- -- -- -- 16 94 % 10/12/21 1535 96/52 37 ??C (98.6 ??F) Tympanic -- 16 93 % GEN: NAD HEENT: sclerae anicteric CV: normal rate, regular rhythm PULM: no accessory muscle use ABD: soft, diffusely tender w/o rebound, voluntary guarding SKIN: no jaundice EXT: 1+ BLE NEURO: A&Ox3 MELD-Na score: 9 at 10/13/2021 6:34 MELD score: 9 at 10/13/2021 6:34 Calculated from: Serum Creatinine: 0.70 mg/dL (Using min of 1 mg/dL) at 10/13/2021 6:34 Serum Sodium: 131 mmol/L at 10/13/2021 6:34 Total Bilirubin: 0.7 mg/dL (Using min of 1 mg/dL) at 10/13/2021 6:34 INR(ratio): 1.3 Ratio at 10/13/2021 6:34 Age: 61 years - EGD biopsy 10/09/21: Final Diagnosis A. STOMACH, BIOPSY: - Fundic mucosa with mild focal active gastritis and reactive (chemical) gastropathy. - Negative for Helicobacter pylori. - Negative for dysplasia and malignancy. - See comment. Diagnosis Comment ANTIBODY(CLONE)(BLOCK):RESULT H pylori (Rabbit Monoclonal (SP48), [place]) (A1): Negative A/P: 61F w/ decompensated QUIROZ cirrhosis (MELD-Na 9) w/ known PHG and chronic non- occlusive PVT. PUD whois admitted for hemodynamically stable melena, initially improved on PPI but patient now endorsing recurrent episodes 10/12 PM, hemodynamically stable w/o recurrence thus far 10/13 but requiring interval transfusion. No active source of bleeding noted on EGD 10/09 but etiology presumably from persistent large pyloric channel/duodenal bulb ulcer, biopsies negative for H pylori or malignancy/dysplasia. #Melena: unusual for late re-bleeding from presumed PUD especially in light of PPI use albeit possibly missed doses as patient endorses regurgitating some of her pills 2/2 nausea. - if recurs/persistent, would make NPO and medically stabilize including escalating to higher levelof care, notify GI fellow director of laboratory operations for repeat EGD - anti-emetics prn to minimize retching #PUD: - c/w IV PPI BID (patient reports difficulty tolerating pills 2/2 nausea), discharge on at minimum 12 week course, at which time should have repeat EGD as outpatient to assess for interval healing - avoid NSAIDs #QUIROZ cirrhosis - daily MELD-Na labs (CMP, INR) - c/w CTX for 7 day course - follows with stroke belt sander operator Dr. Moseley. GI/hepatology will arrange follow up at time of discharge #Chronic non-occlusive portal vein thrombosis: - per 2020 AASLD guidelines [1], there is limited clinical trial data regarding treatment indications for PVT without ischemic symptoms in patients with cirrhosis. Thus, treatment decisions should beconsidered on a [id number] basis per risks/benefits. Given recent/possible ongoing slow bleeding and her PVT is non-occlusive and chronic, risks of anticoagulation appear to outweigh benefits at this time #HE: no prior Hx, not currently encephalopathic - avoid sedatives, narcotics - initiate lactulose as clinically indicated #Ascites: clinically without ascites, mild peripheral edema - low Na (<2 g daily) diet - c/w HAT PRESSER spironolactone 100 mg, furosemide 40 mg daily - monitor renal function, Na closely - daily weights, I/Os #Varices: previously reported small EVs in outside EGD 2019 not visualized in most recent EGDs 03/2021, 09/2021 - interval surveillance as outpatient #HCC: no focal lesions seen on 10/01/2021 CTAP w/ contrast - interval surveillance as outpatient REFERENCE [1] Vascular Liver Disorders, Portal Vein Thrombosis, and Procedural Bleeding in Patients with Liver Disease: 2020 Practice Guidance by the [employer] of Liver Diseases. (https ://aasldpubs.onlinelibrary.waters.com/doi/full/10.1002/hep.59530) Attestation statement: I performed or was present during the brown or critical portions of the visit and participated in the management of the patient. I agree with the findings and plan of care documented in the resident's/fellow's note. Concern for recurrent GI blood loss. Patient currently stable,but with dropping Hgb and some darker stools. Will monitor closely. If signs of active bleeding, would need transfer to ICU. Otherwise, repeat labs and make NPO after midnight for possible repeat EGDin am. * Hardik Gutiérrez, RT - 10/13/2021 0955 EST Respiratory Progress Note Indications for Respiratory therapy: COPD, HUEY Data Vitals: Heart Rate: 86 BPM, Resp: 20, SpO2: 97 % FIO2/O2 Device: O2 Flow Rate (L/min): 0 l/min, , O2 Device: None, RT Orders: BID albuterol neb BID symbicort PRN albuterol neb PRN duoneb Action/Events BID respiratory medications administered in A.M She wears O2 at night at home. RT MAO 10/13/21 * Josefina Beckford MD MPH - 10/13/2021 0800 EST Medicine Progress Note Service Date: 10/13/2021 Admit Date: 10/08/2021 14:22 Reason for Admission: 61 y.o. female admitted with a chief complaint of melena and now with a principal diagnosis of GI bleed. 24 Hour Events: - NAEO Subjective/Objective Subjective Phyliss is doing okay this morning. She continues to have significant nausea, lightheadedness, and 8/10 upper abdominal pain. Pain is unrelieved with current pain regimen. She is eating small meals, vomited after eating dinner three nights in a row. Able to ambulate the halls without difficulty. Has been elevating her legs due to increasing LE edema. Her LE's became painful due to the edema yesterday. She does not feel like she is diuresing adequately. Yesterday she had multiple melanotic stools. Review of Systems A ten point review of systems was performed and was negative except for pertinent positives noted in the HPI Objective Vital Signs Temp: [36.6 ??C (97.9 ??F)-37.7 ??C (99.9 ??F)] , Heart Rate: [88 BPM-98 BPM] , Resp: [16-20] , BP:(96-128)/(52-60) , SpO2: [93 %-97 %] Physical Exam Constitutional: Appears in no acute distress. Eyes:No scleral icterus Neck: Full ROM, supple Heart: Normal S1, S2, no m/r/g Strong peripheral pulses Lungs: No Respiratory distress, symmetrical chest expansion. Crackles over lower lung godwin Abdomen: Soft, upper abd tenderness, non rigid, voluntary guarding. No pulsatile masses. Skin: No overt rashes, bruising, or lesions on exposed skin; pallor Extremities: Moving all 4 extremities spontaneously, warm and well perfused. 2+ pitting edema at the ankles BL Neuro: Grossly neurologically intact with normal speech. No asterixis Psych: Answering questions appropriately Is PICC or central line present? No, PICC/Central line not present. Labs Reviewed Recent Labs 10/12/2173810/13/21 0634 WBC 8.72 7.71 RBC 2.63* 2.40* HGB 7.3* 6.8* HCT 22.6* 20.4* PLT 178 188 MCV 86 85 MCH 27.8 28.3 MCHC 32.3 33.3 Recent Labs 10/12/2173810/13/21 0634 NA 132* 131* K 3.8 3.9 CL 101 99 CO2 25 26 BUN 8* 9* CREATININE 0.74 0.70 CALCIUM 8.1* 8.1* MG 1.9 -- LABALBU 3.1* 3.0* Recent Labs 10/12/2173810/13/21 0634 PROTIME 16.1* 15.5* INR 1.4* 1.3* PTT 30 28 Recent Labs 10/12/2173810/13/21 0634 TBIL 0.9 0.7 ALKPHOS 119 112 AST 35 30 ALT 15 14 Imaging Reviewed: I have independently visualized images CT ANGIO ABDOMEN PELVIS Result Date: 10/08/2021 1. No evidence of active arterial extravasation [...] cirrhosis with stigmata of portal venous hypertension. Assessment/Plan Assessment Tara Boothe is a 61 y.o. female with a PMHx significant for decompensated QUIROZ cirrhosis (portal htn, hepatic encephalopathy, small esophageal varices on EGD in 2019) w/ associated thrombocytopenia/hypersplenism s/p partial splenic embolization (09/28/21), portal vein thrombosis, Hep C, asthma, COPD (no home O2), HUEY not on CPAP, hypothyroidism, & anxiety/depression who presented to ED with abdominal pain and melena and admitted for GI bleed. EGD yesterday showing large clean based duodenal ulcer (+mild portal gastropathy, no esophageal varices). Biopsy negative for H. Pylori, dysplasia, and malignancy. Hgb downtrending, today at 6.8 with multiple episodes of melena yesterday. Will re ceive a second unit of blood today. Continue diuresis today. Plan #Acute GI Bleed with acute blood loss anemia Melena x 3 days. CTA with no evidence of active arterial extravasation to suggest active hemorrhage. - s/p ceftriaxone 1g in ED, continue CTX 1 g daily for total 7 days - GI consulted, EGD performed on 10/09/21 - EGD biopsy with mild focal active gastritis, reactive gastropathy, neg H. Pylori, neg dysplasia and malignancy - pantoprazole 40 mg IV bid - 1U blood ordered for Hgb 6.8 today - Repeat CBC at 1800 - Hold lovenox for GIB - NPO after MN possible scope tomorrow #Acute on Chronic Abdominal pain: etiology likely multifactorial in setting of recent splenic embolization, duodenal ulcer and possibly related to known portal vein thrombus. Having BMs, low concern for bowel obstruction. - HAT PRESSER dilaudid increased from 2mg PO to 4mg PO Q4 prn for now - will decrease back to HAT PRESSER dose as increase has not improved pain and per chart review ? H/o narcotic seeking behavior. Pain currently felt to be 2/2 duodenal ulcer/gastritis. - continue sucralfate w meals - start GI cocktail #Hx Decompensated QUIROZ Cirrhosis C/b portal HTN and non-occlusive portal vein thrombosis. S/p partial splenic embolization with distal splenic infarction for chronic thrombocytopenia on 09/28/21. No evidence of HE, ascites or jaundice. - MELD Na Score = 9 (10/13/21) - Spironolactone 100 mg and Lasix PO 40 mg - Check CMP, Coags daily - strict I&Os #Hyponatremia: stable - Asymptomatic - Likely 2/2 cirrhosis and poor solute #Chronic portal vein thrombus: interval increase in size, nonocclusive. -Follows with Hematology and was on ppx lovenox in the past, but only for a short time. Since it's chronic, appreciate GI recommendations not to treat as bleeding risk out weights limited benefit -Heme outpatient follow-up -Hold lovenox 40u daily for downtrending Hgb #COPD - albuterol nebulizer 2.5 mg BID + PRN - ipatropium-albuterol nebulizer q6hrs - budesonide-formoterol inhaler PRN #HUEY Sleep study 11/27/20, which recommended CPAP. Pt does not currently wear CPAP at home. - f/u with pulmonology as outpatient - continue 2L O2 overnight #Chronic Hypothyroidism - continue HAT PRESSER levothyroxine #Depression - continue HAT PRESSER sertraline #Insomnia - HAT PRESSER trazodone - continue ramelteon #VTE Prophylaxis Held due to GI bleed Code: Full Discharge Plan Uncertain Consults GI Kiana Solis, MS3 I was present with the medical student for the history, exam, and medical decision making documented. I have edited the medical student note as appropriate. Val Morales MD 10/13/2021 11:47 PGY-1 Internal Medicine Pager:[phone] or Cortext ATTENDING ATTESTATION: Date of service: 10/13/2021 I have interviewed and examined the patient. I personally reviewed laboratories studies, radiographic studies, ECG, and prior records. I discussed the case with: the medicine house staff team. I agree with and edited (in Blue) the findings and plan of care as documented in the note above. Josefina Beckford MD MPH [facility] Inpatient Service 10/13/2021 12:16 * Josefina Beckford MD MPH - 10/12/2021 1411 EST Medicine Progress Note Service Date: 10/12/2021 Admit Date: 10/08/2021 14:22 Reason for Admission: 61 y.o. female admitted with a chief complaint of melena and now with a principal diagnosis of GI bleed. 24 Hour Events: - NAEO Subjective/Objective Subjective Phyliss is doing alright this morning, although she continues to endorse ongoing diffuse abdominal pain which she says is slightly improved from admission. She also notes a sharp b/l upper abdominal pain that worsens with breathing, especially when taking deep breaths. She has been nauseous and vomited after dinner the past 2 days, but feels she is tolerating a normal diet well and would like to keep it normal and not change it to full liquid. One small black BM yesterday. Denied any f/c. No chest pain. Review of Systems A ten point review of systems was performed and was negative except for pertinent positives noted in the HPI Objective Vital Signs Temp: [37.2 ??C (99 ??F)] , Heart Rate: [85 BPM-92 BPM] , Resp: [18-20] , BP: (107-125)/(55-61) , SpO2: [95 %] Physical Exam Constitutional: Appears in no acute distress. Eyes:No scleral icterus Neck: Full ROM, supple Heart: Normal S1, S2, no m/r/g Strong peripheral pulses Lungs: No Respiratory distress, symmetrical chest expansion. Inspiratory and expiratory wheezes present. Abdomen: Soft, diffuse tenderness, non rigid, voluntary guarding. No pulsatile masses. Skin: No overt rashes, bruising, or lesions on exposed skin; pallor Extremities: Moving all 4 extremities spontaneously, warm and well perfused. 1- 2+ edema at the ankles BL Neuro: Grossly neurologically intact with normal speech. No asterixis Psych: Answering questions appropriately Is PICC or central line present? No, PICC/Central line not present. Labs Reviewed Recent Labs 10/11/2173910/12/21 0739 WBC 10.64 8.72 RBC 2.82* 2.63* HGB 7.7* 7.3* HCT 24.3* 22.6* PLT 164 178 MCV 86 86 MCH 27.3 27.8 MCHC 31.7* 32.3 Recent Labs 10/11/2173910/12/21 0739 NA 131* 132* K 3.6 3.8 CL 103 101 CO2 23 25 BUN 9* 8* CREATININE 0.74 0.74 CALCIUM 8.0* 8.1* MG -- 1.9 LABALBU 3.0* 3.1* Recent Labs 10/11/2173910/12/21 0739 PROTIME 16.1* 16.1* INR 1.4* 1.4* PTT 27 30 Recent Labs 10/11/2173910/12/21 0739 TBIL 0.9 0.9 ALKPHOS 118 119 AST 37 35 ALT 17 15 Imaging Reviewed: I have independently visualized images CT ANGIO ABDOMEN PELVIS Result Date: 10/08/2021 1. No evidence of active arterial extravasation [...] cirrhosis with stigmata of portal venous hypertension. Assessment/Plan Assessment Tara Boothe is a 61 y.o. female with a PMHx significant for decompensated QUIROZ cirrhosis (portal htn, hepatic encephalopathy, small esophageal varices on EGD in 2019) w/ associated thrombocytopenia/hypersplenism s/p partial splenic embolization (09/28/21), portal vein thrombosis, Hep C, asthma, COPD (no home O2), HUEY not on CPAP, hypothyroidism, & anxiety/depression who presented to ED with abdominal pain and melena and admitted for GI bleed. EGD yesterday showing large clean based duodenal ulcer (+mild portal gastropathy, no esophageal varices). Hgb slightly decrease but is relativelystable at 7.3, one episode of melena in ~24 hrs. Increased diuresis yesterday, is HDS. Plan #GI Bleed with acute blood loss anemia Melena x 3 days. CTA with no evidence of active arterial extravasation to suggest active hemorrhage. - s/p ceftriaxone 1g in ED, continue CTX 1 g daily for total 7 days - GI consulted, EGD performed on 10/09/21 - f/u on EGD biopsy results - pantoprazole 40 mg PO bid #Acute on Chronic Abdominal pain: etiology likely multifactorial in setting of recent splenic embolization, duodenal ulcer and possibly related to known portal vein thrombus. Having BMs, low concern for bowel obstruction. - HAT PRESSER dilaudid increased from 2mg PO to 4mg PO Q4 prn for now - continue sucralfate w meals #Hx Decompensated QUIROZ Cirrhosis C/b portal HTN and non-occlusive portal vein thrombosis. S/p partial splenic embolization with distal splenic infarction for chronic thrombocytopenia on 09/28/21. No evidence of HE, ascites or jaundice. - MELD Na Score = 16 (10/12/21) - Spironolactone to 100 mg and Lasix PO to 40 mg - Check CMP, Coags daily - strict I&Os #Hyponatremia: stable - Asymptomatic - Likely 2/2 cirrhosis and poor solute #Chronic portal vein thrombus: interval increase in size, nonocclusive. -Follows with Hematology and was on ppx lovenox in the past, but only for a short time. Since it's chronic, appreciate GI recommendations not to treat as bleeding risk out weights limited benefit -Heme outpatient follow-up -Started lovenox 40u daily for DVT ppx yesterday #COPD - albuterol nebulizer 2.5 mg BID + PRN - ipatropium-albuterol nebulizer q6hrs - budesonide-formoterol inhaler PRN #HUEY Sleep study 11/27/20, which recommended CPAP. Pt does not currently wear CPAP at home. - f/u with pulmonology as outpatient - continue 2L O2 overnight #Chronic Hypothyroidism - continue HAT PRESSER levothyroxine #Depression - continue HAT PRESSER sertraline #Insomnia - HAT PRESSER trazodone - continue ramelteon #VTE Prophylaxis Lovenox 40 u daily Code: Full Discharge Plan Likely home tomorrow Consults GI Val Morales MD PGY-1 Internal Medicine Pager:[phone] or Cortext 10/12/21 14:11 ATTENDING ATTESTATION: Date of service: 10/12/2021 I have interviewed and examined the patient. I personally reviewed laboratories studies, radiographic studies, ECG, and prior records. I discussed the case with: the medicine house staff team. I agree with and edited (in Blue) the findings and plan of care as documented in the note above. Josefina Beckford MD MPH [facility] Inpatient Service 10/12/2021 15:52 * Daniel Gotti, RT - 10/12/2021 1224 EST Respiratory Consult/Progress Note Indications for Respiratory therapy: COPD, HUEY Data Vitals: Heart Rate: 92 BPM, Resp: 18, SpO2: 95 % FIO2/O2 Device: O2 Flow Rate (L/min): 0 l/min, , O2 Device: None, RT Orders: BID albuterol neb BID symbicort PRN albuterol neb PRN duoneb Protocol Scoring: Bronchodilator/Inhalation Therapy Frequency Bronchodialator - Clinical Indications: History of bronchospasm Breath Sounds: Any abnormal BS decreased Response: No change / no treatment Pulse: <100 Resp Rate: 18-25 SOB: With exertion Total Score: 3 Comment:: cont bid Frequency Based On Total Score: 0-4 = PRN 5-7 = QID 8-10 = Q4H 11-12 = Q2H Airway Clearance Therapy Frequency Airway Clearance - Clinical Indications: No clinical indications Breath Sounds: Clear / diminished Sputum: Small (tsp) / None Consistency: None Cough Effort: Strong/ non-productive Color: None Total Score: 0 Comment: Not indicated Frequency Based On Total Score: 0-3 = PRN 4-6 = QID and PRN 7-9 = Q4H and PRN 10-11 = Q2H and PRN Hyperinflation Therapy Frequency Hyperinflation - Clinical Indications: No clinical indications Breath Sounds: Clear Surgery: No X-Ray / Atelectasis: No O2 Requirements: O2 at baseline Mobility Status: Mobile / at baseline Total: 0 Comment: Not indicated Frequency Based On Total Score: 0-3 = PRN 4-6 = QID and PRN 7-9 = Q4H and PRN 10-12 = Q2H and PRN Action/Events Respiratory events; BID respiratory medications administered in A.M She wears O2 at night at home. BS are dim bilaterally but essentially CTA... Response/Results Weaning and Toleration of treatments; Cont as ordered. DANIEL GOTTI, RT 10/12/21 * Mari Harry, PT - 10/12/2021 1156 EST [facility] Acute Therapy [facility] [place] Initial Evaluation/Discontinue Note Date of Service: 10/12/2021 Reason for Referral: Evaluate and treat Mobility Precautions Activity: Activity as tolerated SUBJECTIVE: Patient/Caregiver States: I've never been sick like this. Subjective Information Reported by: Patient Pain Description: None OBJECTIVE: Patient Profile: Patient is a 61 y.o. female admitted on 10/08/2021 secondary to GI bleeding The patient lives at [address] [place] [address] Support Support Person: Son Amount of Support: Part-time assist Prior Level of Function: Occupation: Retired, Disabled Medical/Surgical History: Current: Patient Active Problem List Diagnosis ??? Pancytopenia (HCC) ??? Mild persistent asthma without complication ??? Drug-seeking behavior ??? Hypersplenism syndrome ??? Splenic vein thrombosis ??? Hematuria, gross ??? Chronic pain syndrome ??? Cirrhosis of liver (HCC-CMS) (HCC) ??? Obesity, Class II, BMI [...] protein-calorie malnutrition (HCC-CMS) (HCC) ??? Hypersplenism ??? At risk for inadequate pain control ??? 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HCC-CMS) (HCC) ??? Chronic respiratory failure with hypoxia (HCC-CMS) (HCC) ??? GI bleed ??? GI bleeding Past: Past Medical History: Diagnosis Date ??? Anemia ??? Anxiety ??? Asthma 12/10/2020 currently not taking - mild persistent - see dr. Veronica 11/20/2021 ??? Bleeding disorder (HCC-CMS) (HCC) ??? Bursitis right shoulder ??? C. difficile colitis 07/25/2015 Hospitalized after kidney stone removal ??? Chronic ITP (idiopathic thrombocytopenia) (HCC-CMS) (HCC) 12/10/2020 - see 11/20/2020 Dr. Veronica H&P, (managed by Starr Paige MD) ??? Chronic kidney disease slow to come back ??? Cirrhosis of liver (HCC-CMS) (HCC) ??? Clotting disorder (HCC-CMS) (HCC) ??? Community acquired pneumonia january 2021 ??? COPD exacerbation (HCC-CMS) (HCC) 04/26/2020 ??? Depression ??? Drug-seeking behavior Per Dr Amelia Tijerina and notes from [facility] patient misconstrued information to several providers about multiple concurrent opiate prescriptions ??? Environmental allergies ??? Exercise involving walking takes a walk daily for 20 minutes ??? GERD (gastroesophageal reflux disease) 12/10/2020 does not wake pt at night ??? Heartburn ??? Hemorrhagic disorder (HCC-CMS) (HCC) ??? History of general anesthesia ??? History of kidney stones ??? History of nephrolithiasis ??? History of peripheral edema 12/10/2020 - bilateral leg edema - see 11/20/2020 Dr. Benoit H&P ??? Hypersplenism syndrome ??? Hypersplenism syndrome ??? Hypotension 70-80/30-40 usually ??? Hypothyroidism ??? Joint replaced 199912/10/2020 nya knees ??? QUIROZ (nonalcoholic steatohepatitis) ??? Oxygen dependent 12/10/2020 HS ??? Pancytopenia (HCC) ??? Rheumatoid arthritis ??? Shortness of breath ??? Sleep apnea ??? Thrombocytopenia (HCC-CMS) (HCC) 12/10/2020 - see [...] TONSILLECTOMY ??? WRIST SURGERY Right after fracture Medications Current Medications: Current medications reviewed Arousal, Attention, and Cognition: Alert and oriented x 3 Cardiopulmonary: Vital Signs Monitoring in Special Situations Comment: Vital signs stable with mobility Integumentary/Anthropometric: Skin General Assessment Skin and Related Structure Functions: No problems noted Sitting Posture General Assessment: No problem noted Standing Posture General Assessment: No problems noted Range of Motion and Joint Integrity: General Assessment Range of Motion: No problems noted Muscle Performance: Strength: No problems noted Sensation, Reflexes, and Nerve Integrity: Sensory Functions: No problems noted Neuromotor Function/Development: Neuromotor Function/Development: No problems noted Balance, Mobility, and Gait: Mobility General Mobility: No problems noted Self-Care, Home Management, Work, Leisure: NA Informed Consent: Informed Consent: The patient consented to the Physical Therapy evaluation. The patient agrees to and understands the Physical Therapy treatment plan and goals. Interventions Completed Today: Time: 11:30 Total Treatment Time (minutes): 15 Timed Code Treatment Minutes: 0 No interventions completed today Patient Status at the End of the Therapy Session, The patient was left in the: recliner with the: Call hines in reach Additional information may be available in the medical record. Patient/Family Education: Recommendations: Discharge recommendations/planning Therapy Specific: Role of physical therapy Learner: Patient Learning Preferences: Auditory Barriers to Learning: None Outcome: Verbalized understanding Team Communication: Team Communication Status: No communication needed at this time Notification Comments: Patient will need 24 hour notice of discharge to arrange for assistance at home ASSESSMENT: Physical Therapy Diagnosis: The patient presents with a physical therapy diagnosis of: Impaired aerobic capacity and endurance Physical Therapy Prognosis: The patient's prior level of function was: independent Current status is: below prior level of function The patient: is a pleasant 61 year old woman admitted with a GI bleed. she is ambulating independently. primary issue is generalized fatigue but overall she is doing well and is appropriate for discharge home when medically cleared. Short-Term Goals: Time Frame: NA Long-Term Goals: Time Frame: NA PLAN: Discontinue physical therapy services Recommended Discharge Destination: Home with family support/supervision MARI HARRY, PT 10/12/2021 11:56 * Gaetano Campbell MD - 10/12/2021 1017 EST 61F w/ decompensated QUIROZ cirrhosis w/ portal hypertensive gastropathy and chronic non-occlusive PVT, PUD (H pylori negative 03/2021), Hx chronic thrombocytopenia/hypersplenism s/p partial splenic embolization (09/28/21) who was admitted for melena, now s/p EGD 10/09/21 without active bleeding but not able for persistent large duodenal bulb clean-based ulcer without high-risk stigmata, mild portal gastropathy, no varices. No recurrent bleeding, Hgb stable in 7s without interval transfusions. Patient Vitals for the past 24 hrs: BP Temp Temp src Pulse Resp SpO2 10/12/21 0740 -- -- -- -- 18 95 % 10/12/21 0631 117/61 -- -- 85 -- -- 10/12/21 0420 107/55 37.2 ??C (99 ??F) Tympanic -- 20 95 % 10/11/212047 -- -- -- -- 18 95 % 10/11/212016 125/59 37.2 ??C (99 ??F) Tympanic -- 18 95 % GEN: NAD HEENT: sclerae anicteric CV: normal rate, regular rhythm PULM: no accessory muscle use ABD: soft, diffusely tender w/o rebound, voluntary guarding SKIN: no jaundice EXT: 1+ BLE NEURO: A&Ox3 MELD-Na score: 10 at 10/12/2021 7:39 MELD score: 10 at 10/12/2021 7:39 Calculated from: Serum Creatinine: 0.74 mg/dL (Using min of 1 mg/dL) at 10/12/2021 7:39 Serum Sodium: 132 mmol/L at 10/12/2021 7:39 Total Bilirubin: 0.9 mg/dL (Using min of 1 mg/dL) at 10/12/2021 7:39 INR(ratio): 1.4 Ratio at 10/12/2021 7:39 Age: 61 years - EGD biopsy 10/09/21 - in process A/P: 61F w/ decompensated QUIROZ cirrhosis (MELD-Na 10) w/ known PHG and chronic non- occlusive PVT. PUD who is admitted for hemodynamically stable melena, now resolved on PPI. No active source of bleeding noted but etiology presumably from persistent large duodenal bulb ulcer, biopsies pending. #PUD: - f/u biopsies - c/w BID PPI, discharge on at minimum 12 week course, at which time should have repeat EGD as outpatient to assess for interval healing - avoid NSAIDs #QUIROZ cirrhosis - daily MELD-Na labs (CMP, INR) - c/w CTX for 7 day course - follows with stroke belt sander operator Dr. Moseley. GI/hepatology will arrange follow up at time of discharge #Chronic non-occlusive portal vein thrombosis: - per 2020 AASLD guidelines [1], there is limited clinical trial data regarding treatment indications for PVT without ischemic symptoms in patients with cirrhosis. Thus, treatment decisions should beconsidered on a [id number] basis per risks/benefits. Given recent bleeding and PVT is non-occlusive and chronic, risks of anticoagulation appear to outweigh benefits at this time #HE: no prior Hx, not currently encephalopathic - avoid sedatives, narcotics - initiate lactulose as clinically indicated #Ascites: clinically without ascites, mild peripheral edema - low Na (<2 g daily) diet - c/w HAT PRESSER spironolactone 100 mg, furosemide 40 mg daily - monitor renal function, Na closely - daily weights, I/Os #Varices: previously reported small EVs in outside EGD 2019 not visualized in most recent EGDs 03/2021, 09/2021 - interval surveillance as outpatient #HCC: no focal lesions seen on 10/01/2021 CTAP w/ contrast - interval surveillance as outpatient REFERENCE [1] Vascular Liver Disorders, Portal Vein Thrombosis, and Procedural Bleeding in Patients with Liver Disease: 2020 Practice Guidance by the [employer] Liver Diseases. (https ://aasldpubs.onlinelibrary.waters.com/doi/full/10.1002/hep.84173) Attestation statement: I performed or was present during the brown or critical portions of the visit and participated in the management of the patient. I agree with the findings and plan of care documented in the resident's/fellow's note. Large pyloric channel/duodenal bulb ulcer. Will need long course of BID PPI to help heal. Likely will benefit from repeat EGD. Watch for stricturing. Cirrhosis management as above, and f/u with Dr. Moseley. * Enrike Fraser MD - 10/11/2021 1200 EST Medicine Progress Note Service Date: 10/11/2021 Admit Date: 10/08/2021 14:22 Reason for Admission: 61 y.o. female admitted with a chief complaint of melena and now with a principal diagnosis of GI bleed. 24 Hour Events: - NAEO Subjective/Objective Subjective Tara is doing well this morning. She went for a morning walk when I went to evaluate her with the team in AM. She reports feeling nauseous sometimes which is controlled by Zofran. She reports feeling not completely able to take breaths. She reports eating okay. She was counseled regarding her management plan. She reports better pain controlled. Endorses ongoing diffuse abd pain which is unchanged over past several weeks. Ongoing nausea, no vomiting today. Passing flatus, no BMs since yesterdays. Beulah winded w walking in hallway, mild SOB atrest. No black or bloody BMs since yesterday. Review of Systems A ten point review of systems was performed and was negative except for pertinent positives noted in the HPI Objective Vital Signs Temp: [36.9 ??C (98.4 ??F)-37.2 ??C (99 ??F)] , Heart Rate: [95 BPM-97 BPM] , Resp: [14-22] , BP: (110-133)/(57-73) , SpO2: [95 %-98 %] Physical Exam Constitutional: Appears in no acute distress. Eyes:no scleral icterus Neck: Full ROM, supple Heart: Strong peripheral pulses, no lower extremity edema. Lungs: No Respiratory distress, symmetrical chest expansion. Inspiratory and expiratory wheezes present. Abdomen: Soft, diffuse tenderness, non rigid, voluntary guarding. No pulsatile masses. Skin: No overt rashes, bruising, or lesions on exposed skin; pallor Extremities: Moving all 4 extremities spontaneously, warm and well perfused. 2+ edema at the anklesBL Neuro: Grossly neurologically intact with normal speech Psych: Answering questions appropriately Is PICC or central line present? No, PICC/Central line not present. Medications Reviewed : Increase spirino to 100 and lasix to 40 Labs Reviewed Recent Labs 10/08/21 1441 10/08/21 2305 10/10/21 0743 10/11/21 0740 WBC 12.04 < > 13.43* 10.64 RBC 2.52* < > 2.60* 2.82* HGB 7.0* < > 7.6* 7.7* HCT 21.0* < > 22.2* 24.3* PLT 202 < > 315 164 MCV 83 < > 85 86 MCH 27.8 < > 29.2 27.3 MCHC 33.3 < > 34.2 31.7* NEUTROABS 10.06* -- -- -- < > = values in this interval not displayed. Recent Labs 10/10/21 1008 10/11/21 0740 NA 133* 131* K 3.6 3.6 CL 104 103 CO2 23 23 BUN 14 9* CREATININE 0.75 0.74 CALCIUM 7.8* 8.0* LABALBU 2.6* 3.0* Recent Labs 10/10/21 0743 10/11/21 0740 PROTIME 15.3* 16.1* INR 1.3* 1.4* PTT 27 27 Recent Labs 10/10/21 1008 10/11/21 0740 TBIL 0.8 0.9 ALKPHOS 98 118 AST 38 37 ALT 17 17 Imaging Reviewed: I have independently visualized images CT ANGIO ABDOMEN PELVIS Result Date: 10/08/2021 1. No evidence of active arterial extravasation [...] cirrhosis with stigmata of portal venous hypertension. Assessment/Plan Assessment Tara Boothe is a 61 y.o. female with a PMHx significant for decompensated QUIROZ cirrhosis (portal htn, hepatic encephalopathy, small esophageal varices on EGD in 2019) w/ associated thrombocytopenia/hypersplenism s/p partial splenic embolization (09/28/21), portal vein thrombosis, Hep C, asthma, COPD (no home O2), HUEY not on CPAP, hypothyroidism, & anxiety/depression who presented to ED with abdominal pain and melena and admitted for GI bleed.EGD yesterday showing large clean based duodenal ulcer (+mild portal gastropathy, no esophageal varices). Hgb remains stable at 7.6, no melena x ~24 hrs. Plan to increase diuresis. Patient HDS with stable vital signs. Plan #GI Bleed Melena x 3 days. CTA with no evidence of active arterial extravasation to suggest active hemorrhage. - s/p ceftriaxone 1g in ED, continue CTX 1 g daily for total 7 days - GI consulted, EGD performed on 10/09/21 - f/u on EGD biopsy results - s/p 1U blood, hold off on 2nd unit if Hgb >7 - repeat CBC daily - zofran PRN for nausea - pantoprazole 40 mg PO bid - maintain 2 large bore PIVs #Acute on Chronic Abdominal pain: etiology likely multifactorial in setting of recent splenic embolization, duodenal ulcer and possibly related to known portal vein thrombus. Having BMs, low concern for bowel obstruction. -HAT PRESSER dilaudid increased from 2mg PO to 4mg PO Q4 prn for now -continue sucralfate w meals #Hx Decompensated QUIROZ Cirrhosis C/b portal HTN and non-occlusive portal vein thrombosis. S/p partial splenic embolization with distal splenic infarction for chronic thrombocytopenia on 09/28/21. No evidence of HE, ascites or jaundice. - MELD Na Score = 17 (10/11/21) - Increase HAT PRESSER spironolactone to 100 mg and lasix PO to 40 mg given vol overload on exam today - Check CMP, Coags daily - strict I&Os #Hyponatremia -Asymptomatic - Likely 2/2 cirrhosis and poor solute - Increase diuretic as above #Chronic portal vein thrombus: interval increase in size, nonocclusive. -Follows with Hematology and was on ppx lovenox in the past. Will consider starting AC tomorrow -Will consult Hematology tomorrow pending resolution of GIB -start lovenox 40u daily for DVT ppx today #COPD - albuterol nebulizer 2.5 mg BID + PRN - ipatropium-albuterol nebulizer q6hrs - budesonide-formoterol inhaler PRN #HUEY Sleep study 11/27/20, which recommended CPAP. Pt does not currently wear CPAP at home. - f/u with pulmonology as outpatient - continue 2L O2 overnight #Chronic Hypothyroidism - continue HAT PRESSER levothyroxine #Depression - continue HAT PRESSER sertraline #Insomnia - start HAT PRESSER trazodone - continue ramelteon #VTE Prophylaxis , start lovenox 40 u daily Code: Full Discharge Plan Likely home in 1-2 days Consults GI Enrike Fraser MD Medicine Supervisor [employer] 10/11/21 11:47 Cosigned by Olesya Silva MD MPH at 10/11/2021 12:41 EST Associated attestation - Olesya Silva MD MPH - 10/11/2021 1241 EST Attending Attestation I interviewed and examined the patient. I have personally reviewed interval events, laboratory data, and imaging. I discussed the case with the inpatient resident team. I agree with findings and planof care as documented by the resident (or have edited in purple). Total unit time I spent in care of patient today: 30 minutes Olesya Silva MD MPH 10/11/2021 12:35 * Semaj Fagan, RT - 10/11/2021 1019 EST Respiratory Consult/Progress Note Indications for Respiratory therapy: COPD, HUEY Data Vitals: Heart Rate: 95 BPM, Resp: 16, SpO2: 95 % FIO2/O2 Device: O2 Flow Rate (L/min): 2 l/min, , O2 Device: Nasal cannula, RT Orders: BID albuterol neb BID symbicort PRN albuterol neb PRN duoneb Protocol Scoring: Bronchodilator/Inhalation Therapy Frequency Bronchodialator - Clinical Indications: History of bronchospasm Breath Sounds: Any abnormal BS decreased Response: Mild response, increase subjective per LABORER HOISTING Pulse: <100 Resp Rate: 18-25 SOB: None Total Score: 3 Comment:: cont bid Frequency Based On Total Score: 0-4 = PRN 5-7 = QID 8-10 = Q4H 11-12 = Q2H Airway Clearance Therapy Frequency Airway Clearance - Clinical Indications: No clinical indications Breath Sounds: Clear / diminished Sputum: Small (tsp) / None Consistency: None Cough Effort: Strong/ non-productive Color: None Total Score: 0 Comment: Not indicated Frequency Based On Total Score: 0-3 = PRN 4-6 = QID and PRN 7-9 = Q4H and PRN 10-11 = Q2H and PRN Hyperinflation Therapy Frequency Hyperinflation - Clinical Indications: No clinical indications Breath Sounds: Clear Surgery: No X-Ray / Atelectasis: No O2 Requirements: O2 at baseline Mobility Status: Mobile / at baseline Total: 0 Comment: Not indicated Frequency Based On Total Score: 0-3 = PRN 4-6 = QID and PRN 7-9 = Q4H and PRN 10-12 = Q2H and PRN Action/Events Respiratory events; Respiratory medications administered at 1015. Pt had been on walk earlier. She wears O2 at night athome. Response/Results Weaning and Toleration of treatments; RT QUIN 10/11/21 * Val Morales MD - 10/10/2021 1111 EST Medicine Progress Note Service Date: 10/10/2021 Admit Date: 10/08/2021 14:22 Reason for Admission: 61 y.o. female admitted with a chief complaint of melena and now with a principal diagnosis of GI bleed. 24 Hour Events: - RT recommended pulmonology consult for CPAP settings. No overnight desaturations. Pt normally on 2L O2 overnight at home. Subjective/Objective Subjective Phyliss is doing well this morning. She continues to have significant abdominal pain and nausea, however was able to tolerate small portions of food yesterday. Still has mild lightheadedness, especially when out of bed. Notes hx of H. Pylori ~30 years ago that was treated successfully. Review of Systems A ten point review of systems was performed and was negative except for pertinent positives noted in the HPI Objective Vital Signs Temp: [36.8 ??C (98.2 ??F)-37.8 ??C (100 ??F)] , Heart Rate: [73 BPM-94 BPM] , Resp: [16-20] , BP: (94-120)/(48-71) , SpO2: [94 %-98 %] Physical Exam Constitutional: Appears in no acute distress. Eyes: Pupils equal and reactive to light, no scleral icterus Mouth: Moist oral mucosa without apparent lesions Neck: Full ROM, supple Heart: Strong peripheral pulses, no lower extremity edema. Lungs: No Respiratory distress, symmetrical chest expansion. Improved inspiratory and expiratory wheezes. Abdomen: Soft, diffuse tenderness, non rigid, voluntary guarding. No pulsatile masses. Skin: No overt rashes, bruising, or lesions on exposed skin; pallor Extremities: Moving all 4 extremities spontaneously, warm and well perfused. Neuro: Grossly neurologically intact with normal speech Psych: Answering questions appropriately Is PICC or central line present? No, PICC/Central line not present. Medications Reviewed Labs Reviewed CBC: Recent Labs 10/08/21 1441 10/08/21 2305 10/09/21 0656 10/09/21 1826 10/10/21 0743 WBC 12.04 < > 12.83* 12.34 13.43* RBC 2.52* < > 2.91* 2.66* 2.60* HGB 7.0* < > 8.2* 7.3* 7.6* HCT 21.0* < > 24.9* 22.8* 22.2* MCV 83 < > 86 86 85 MCH 27.8 < > 28.2 27.4 29.2 MCHC 33.3 < > 32.9 32.0* 34.2 PLT 202 < > 188 191 315 NEUTROABS 10.06* -- -- -- -- < > = values in this interval not displayed. BMP: Recent Labs 10/08/21 1441 10/09/21 0656 10/10/21 1008 NA 135* 135* 133* K 3.6 4.0 3.6 CL 105 105 104 CO2 23 23 23 BUN 22 20 14 CREATININE 0.79 0.89 0.75 CALCIUM 7.8* 8.1* 7.8* LABALBU -- 2.8* 2.6* Coags: Recent Labs 10/09/21 0656 10/10/21 0743 PROTIME 15.0* 15.3* INR 1.3* 1.3* PTT 27 27 LFT: Recent Labs 10/09/21 0656 10/10/21 1008 TBIL 1.1 0.8 ALKPHOS 119 98 AST 34 38 ALT 15 17 ABG: No results for input(s): PHISTAT, PCOISTAT, POISTAT, POCTCO2, B3OYIPUC, POCFIO2 in the last 72 hours. Cardiac Markers: No results for input(s): CK, MB, CKMBINDEX, TROPONINI in the last 72 hours. Hemoglobin A1c: No results for input(s): HGBA1C in the last 72 hours. Thyroid Function: No results for input(s): TSH, FREET4 in the last 72 hours. Prealbumin: No results for input(s): PREALBUMIN in the last 72 hours. Inflammatory Markers: No results for input(s): SEDRATE, CRP in the last 72 hours. Anemia Markers: No results for input(s): [id number], FOLATE in the last 72 hours. Autoimmunity: No results for input(s): RF, MELVIN, ANCA in the last 72 hours. Immunoglobulins: No results for input(s): IGG, IGA, IGM, IGE in the last 72 hours. Imaging Reviewed: I have independently visualized images CT ANGIO ABDOMEN PELVIS Result Date: 10/08/2021 1. No evidence of active arterial extravasation [...] the above interpretation and agree with the findings.. Assessment/Plan Assessment Tara Boothe is a 61 y.o. female with a PMHx significant for decompensated QUIROZ cirrhosis (portal htn, hepatic encephalopathy, small esophageal varices on EGD in 2019) w/ associated thrombocytopenia/hypersplenism s/p partial splenic embolization (09/28/21), portal vein thrombosis, Hep C, asthma, COPD (no home O2), HUEY not on CPAP, hypothyroidism, & anxiety/depression who presented to ED with abdominal pain and melena and admitted for GI bleed. Likely peptic/duodenal ulcer in origin. EGD yesterday showing large clean based duodenal ulcer (+mild portal gastropathy, no esophageal varices).Hgb remains stable at 7.6. Patient HDS with stable vital signs. Plan #GI Bleed Melena x 3 days. CTA with no evidence of active arterial extravasation to suggest active hemorrhage. - d/c IV octreotide, no evidence of varices on EGD - s/p ceftriaxone 1g in ED, continue CTX 1 g daily - GI consulted, EGD performed yesterday, f/u on biopsy results - s/p 1U blood, hold off on 2nd unit if Hgb >7 - repeat CBC daily - zofran PRN for nausea - pantoprazole 40 mg PO bid - 4 mg q4hrs PO PRN hydromorphone for abdominal pain - maintain 2 large bore PIVs - F/u biopsy results #Hx Decompensated QUIROZ Cirrhosis C/b portal HTN and non-occlusive portal vein thrombosis. S/p partial splenic embolization with distal splenic infarction for chronic thrombocytopenia on 09/28/21. No evidence of HE, ascites or jaundice today. - MELD Score = 10 (10/09/21) - start HAT PRESSER 50 mg spironolactone and 20 mg lasix PO - Check CMP, Coags daily - strict I&Os #Chronic portal vein thrombus: interval increase in size, nonocclusive. -AC contraindicated at this time, AC vs PPX lovenox could be considered in the near future if no further signs of bleeding. Follows with Hematology and was on ppx lovenox in the past. #Acute on Chronic Abdominal pain: etiology likely multifactorial in setting of recent splenic embolization, duodenal ulcer and possibly related to known portal vein thrombus. Having BMs, low concern for bowel obstruction. -HAT PRESSER dilaudid increased from 2mg PO to 4mg PO Q4 prn for now -start sucralfate w meals #COPD - albuterol nebulizer 2.5 mg BID + PRN - ipatropium-albuterol nebulizer q6hrs - budesonide-formoterol inhaler PRN #HUEY Sleep study 11/27/20, which recommended CPAP. Pt does not currently wear CPAP at home. - f/u with pulmonology as outpatient - continue 2L O2 overnight #Chronic Hypothyroidism - continue HAT PRESSER levothyroxine #Depression - continue HAT PRESSER sertraline #Insomnia - start HAT PRESSER trazodone - continue ramelteon #VTE Prophylaxis Holding due to GI bleed Code: Full Discharge Plan Likely home in 1-2 days Consults GI KIANA SOLIS MS3 10/10/2021 11:11 I was present with the medical student for the history, exam, and medical decision making documented. I have edited the medical student note as appropriate. Val Morales MD 10/10/2021 15:00 PGY-1 Internal Medicine Pager:[phone] or Cortext Cosigned by Olesya Silva MD MPH at 10/10/2021 15:12 EST Associated attestation - Olesya Silva MD MPH - 10/10/2021 1512 EST ATTENDING ATTESTATION: Date of service: 10/10/2021 The resident was present with the medical student for the history, exam, medical decision making documented by him/her. I have personally performed my own physical exam and medical decision-making. Ihave verified and agree with (or, as indicated, edited in purple) the combined medical student's/resident's documentation. Olesya Silva MD MPH * Semaj Fagan, RT - 10/10/2021 1011 EST Respiratory Consult/Progress Note Indications for Respiratory therapy: Home Routine Data Vitals: Heart Rate: 83 BPM, Resp: 20, SpO2: 98 % FIO2/O2 Device: O2 Flow Rate (L/min): 0 l/min, , O2 Device: None, RT Orders: BID albuterol neb BID symbicort PRN albuterol neb PRN duoneb Protocol Scoring: Bronchodilator/Inhalation Therapy Frequency Bronchodialator - Clinical Indications: History of bronchospasm Breath Sounds: Any abnormal BS decreased Response: No change / no treatment Pulse: <100 Resp Rate: <18 SOB: None Total Score: 1 Comment:: Does bid with symbicort Frequency Based On Total Score: 0-4 = PRN 5-7 = QID 8-10 = Q4H 11-12 = Q2H Airway Clearance Therapy Frequency Airway Clearance - Clinical Indications: No clinical indications Breath Sounds: Clear / diminished Sputum: Small (tsp) / None Consistency: None Cough Effort: Strong/ non-productive Color: None Total Score: 0 Comment: Not indicated Frequency Based On Total Score: 0-3 = PRN 4-6 = QID and PRN 7-9 = Q4H and PRN 10-11 = Q2H and PRN Hyperinflation Therapy Frequency Hyperinflation - Clinical Indications: No clinical indications Breath Sounds: Clear Surgery: No X-Ray / Atelectasis: No O2 Requirements: O2 at baseline Mobility Status: Mobile / at baseline Total: 0 Comment: Not indicated Frequency Based On Total Score: 0-3 = PRN 4-6 = QID and PRN 7-9 = Q4H and PRN 10-12 = Q2H and PRN Action/Events Respiratory events; Clear lung sounds. Keep home routine for frequency. Response/Results Weaning and Toleration of treatments; RT QUIN 10/10/21 * Mireya Waldrop - 10/09/2021 2134 EST Initial Case Management/Social Work Assessment and Discharge Plan/Readmission Risk Assessment REASON FOR ADMISSION: GI bleeding Patient understands reason for admission: Yes PATIENT INFO VERIFIED: PCP, Contact Info, Address Type of housing (single family, condo, apartment, alf, single room occupancy, [facility] funded hotel room, group fpc) - room Who does the patient live with? Friends Does the patient have access to their own bedroom/bathroom/kitchen - or is it shared with others? share Name of housing complex (ex [facility], [facility], etc)- n/a Housing Authority/Managing Organization - n/a Community Care Providers (family preservation caseworker, [facility] nurse, etc) name and contact information- n/a LIVING ARRANGEMENTS AND ACCESSIBILITY ISSUES: Living Arrangements: Friends, Private residence Levels: 1 Stairs to enter: 3 Handicap access: None Bathroom located on bedroom level?: Yes What in home social supports are available to the patient? Children, Friends / neighbors Is 24/7 care available? No ADVANCED DIRECTIVES, POA &/or COLST IN PLACE: Healthcare Directive: No, patient does not have advance directive for healthcare treatment Information Provided on Healthcare Directives: No Information on Healthcare Directives Requested: No DIRECTIVES FOR FINANCES: Directive For Finances: No TRANSPORTATION: Transportation: Family Patient expects to be discharged to: tbd CULTURAL, MOSQUE and/or LANGUAGE factors affecting health care/discharge planning: Spiritual/Cultural Requests: None Language/Literacy Needs Do you need us to provide any communication aids or devices?: No Insurance Information: Medical Insurance: Yes Type of insurance: Medicare, Medicaid Medicare type: A, B Medicaid Type: Community Referred to patient financial services: No Nutrition: DISCHARGE RISK ASSESSMENT: Lives at home with limited or no community support;Diagnosis of COPD Total # selected above: Score of 1 - 2: This patient is at LOW RISK for re-hospitalization Tentative plan to address the risk of re-hospitalization for those at HIGH MODERATE RISK: Refer to skilled home care services RAPT TOOL: Age: 50-65 Gender: Female Ambulation distance: 2 or more blocks (600ft) Gait device: None Community Services: Home health, MOW, SASH-none of one time a week Will you live with someone who will care for you?: No RAPT Tool Score: 8 Patient expects to be discharged to: tbd SBIRT: SASQ (Single Alcohol Screening Question) How many times in the past year have you had 4 or more drinks in a single day?: Never How many times in the past year have you used an illegal drug or used a prescription medication fornon-medical reasons?: Never FUNCTIONAL STATUS: Activities patient requires assistance: None Assistive Device: None COMMUNITY RESOURCES/SUPPORTS: Primary Care Provider: Emigdio Veronica PCP Verified: Specialists: Other (urology) Type of Home Health Services: None DME Provider: Pharmacy: [facility]/pharmacy #[id number] - [place], [place] - [address] [address] [facility]/pharmacy #[id number] - [place], [place] - [address] [place] [address] [facility] - [place], [place] - [address] [address] Home Health: Other: POST HOSPITAL TRANSITION PLAN: Expects to go home. She may need HH but will await medical course and if needed PT recs MIREYA STAMATIS 10/09/2021 21:34 * Stacey Taylor - 10/09/2021 1404 EST Case Management Progress Note: Attempted to meet with pt to complete assessment but she was out of the room for a procedure. CM will attempt again later. Stacey Taylor chief quality officer Pager #[phone] * Sohail Winkler MD - 10/09/2021 1329 EST Procedure Performed EGD Indications for Exam Melena Procedure Technique A physical exam was performed. Informed consent was obtained from the patient after explaining all the risks (perforation, bleeding, infection and adverse effects to the medicine), benefits and alternatives to the procedure which the patient appeared to understand and so stated. The patient was connected to the monitoring devices and placed in the left lateral position. Continuous oxygen was provided with a nasal cannula and IV medicine administered through a indwelling cannula. After adequate sedation was achieved the gastroscope was inserted under direct vision into the esophagus and then carefully advanced to the Second part of duodenum. The Second part of duodenum was identified by visual landmarks. The scope was subsequently removed slowly while carefully examining the color, texture, anatomy, and integrity of the mucosa on withdrawal. The patient was subsequently transferred to the recovery area in satisfactory condition. Estimated Blood Loss: None Complications None Medications MAC Anesthesia See Anesthesia Record Findings No evidence of active bleeding or old blood. Esophagus: normal mucosa, no varices Stomach: mild portal gastropathy. Distorted pylorus. Otherwise normal mucosa. Random cold forceps biopsied for H pylori. Duodenum: large non-bleeding clean-based ulcer without bleeding stigmata in duodenal bulb extendinginto sweep. Normal mucosa in examined portion of duodenum. Diagnosis No evidence of active bleeding or old blood. Esophagus: normal mucosa, no varices Stomach: mild portal gastropathy. Distorted pylorus. Otherwise normal mucosa. Random cold forceps biopsied for H pylori. Duodenum: large non-bleeding clean-based ulcer without bleeding stigmata in duodenal bulb extendinginto sweep. Normal mucosa in examined portion of duodenum. Recommendations - f/u biopsies - IV PPI BID while admitted, discharge on PO PPI BID for at least 8 weeks, daily thereafter indefinitely - avoid NSAIDs - advance diet as tolerated Cosigned by Gaetano Campbell MD at 10/09/2021 13:33 EST * Kiana Solis - 10/09/2021 1147 EST Medicine Progress Note Service Date: 10/09/2021 Admit Date: 10/08/2021 14:22 Reason for Admission: 61 y.o. female admitted with a chief complaint of melena and now with a principal diagnosis of GI bleed. 24 Hour Events: - RT recommended pulmonology consult for CPAP settings. No overnight desaturations. Pt normally on 2L O2 overnight at home. Subjective/Objective Subjective Phyliss is doing well this morning. She feels less fatigued and lightheaded following the transfusion. She continues to have severe abdominal pain and nausea. The zofran helps for ~1-2 hours, but thenausea returns quickly. Review of Systems A ten point review of systems was performed and was negative except for pertinent positives noted in the HPI Objective Vital Signs Temp: [36.5 ??C (97.7 ??F)-37.4 ??C (99.3 ??F)] , Heart Rate: [83 BPM-116 BPM] , Resp: [15-25] , BP: (114-132)/(56-80) , SpO2: [94 %-100 %] Physical Exam Constitutional: Appears in no acute distress. Eyes: Pupils equal and reactive to light, no scleral icterus Mouth: Moist oral mucosa without apparent lesions Neck: Full ROM, supple Heart: Strong peripheral pulses, no lower extremity edema. Lungs: No Respiratory distress, symmetrical chest expansion. Improved inspiratory and expiratory wheezes. Abdomen: Soft, diffuse tenderness, non rigid, voluntary guarding. No pulsatile masses. Skin: No overt rashes, bruising, or lesions on exposed skin; pallor Extremities: Moving all 4 extremities spontaneously, warm and well perfused. Neuro: Grossly neurologically intact with normal speech Psych: Answering questions appropriately Is PICC or central line present? No, PICC/Central line not present. Medications Reviewed Labs Reviewed CBC: Recent Labs 10/08/21 1441 10/08/21 2305 10/09/21 0656 WBC 12.04 13.17* 12.83* RBC 2.52* 2.94* 2.91* HGB 7.0* 8.1* 8.2* HCT 21.0* 24.4* 24.9* MCV 83 83 86 MCH 27.8 27.6 28.2 MCHC 33.3 33.2 32.9 PLT 202 182 188 NEUTROABS 10.06* -- -- BMP: Recent Labs 10/08/21 1441 10/09/21 0656 NA 135* 135* K 3.6 4.0 CL 105 105 CO2 23 23 BUN 22 20 CREATININE 0.79 0.89 CALCIUM 7.8* 8.1* LABALBU -- 2.8* Coags: Recent Labs 10/09/21 0656 PROTIME 15.0* INR 1.3* PTT 27 LFT: Recent Labs 10/09/21 0656 TBIL 1.1 ALKPHOS 119 AST 34 ALT 15 ABG: No results for input(s): PHISTAT, PCOISTAT, POISTAT, POCTCO2, [id number], POCFIO2 in the last 72 hours. Cardiac Markers: No results for input(s): CK, MB, CKMBINDEX, TROPONINI in the last 72 hours. Hemoglobin A1c: No results for input(s): HGBA1C in the last 72 hours. Thyroid Function: No results for input(s): TSH, FREET4 in the last 72 hours. Prealbumin: No results for input(s): PREALBUMIN in the last 72 hours. Inflammatory Markers: No results for input(s): SEDRATE, CRP in the last 72 hours. Anemia Markers: No results for input(s): [id number], FOLATE in the last 72 hours. Autoimmunity: No results for input(s): RF, MELVIN, ANCA in the last 72 hours. Immunoglobulins: No results for input(s): IGG, IGA, IGM, IGE in the last 72 hours. Imaging Reviewed: I have independently visualized images CT ANGIO ABDOMEN PELVIS Result Date: 10/08/2021 1. No evidence of active arterial extravasation [...] the above interpretation and agree with the findings.. Assessment/Plan Assessment Tara Boothe is a 61 y.o. female with a PMHx significant for decompensated QUIROZ cirrhosis (portal htn, hepatic encephalopathy, small esophageal varices on EGD in 2019) w/ associated thrombocytopenia/hypersplenism s/p partial splenic embolization (09/28/21), portal vein thrombosis, Hep C, asthma, COPD (no home O2), HUEY not on CPAP, hypothyroidism, & anxiety/depression who presented to ED with abdominal pain and melena and admitted for GI bleed. Likely peptic/duodenal ulcer with hx of duodenal bulb/pylorus ulcer (05/08/21). Less likely to be variceal bleeding as there is no evidence of active hemorrhage and vital signs remain stable. Hgb stabilized at 8.2 following 1U blood yesterday in ED. GI consulted who will perform endoscopy today. EGD showing large clean based duodenal ulcer (+mild portal gastropathy, no esophageal varices). Will stop octreotide gtt. Continue IV PPI BID and CTX. Hgb remains stable. Patient HD stable. Plan #GI Bleed Melena x 3 days. CTA with no evidence of active arterial extravasation to suggest active hemorrhage. - 50 mcg/hr IV octreotide for possible variceal bleeding - s/p ceftriaxone 1g in ED, continue CTX 1 g daily - GI consulted, will perform endoscopy - NPO overnight - Given 1U blood, hold off on 2nd unit if Hgb >7 given varices - repeat CBC q12hrs - zofran PRN for nausea - pantoprazole 40 mg IV bid - 0.5 mg IV dilaudid q3hrs prn for abdominal pain - maintain 2 large bore PIVs - 100mL/hr LR to 1L #Hx Decompensated QUIROZ Cirrhosis C/b portal HTN and non-occlusive portal vein thrombosis. S/p partial splenic embolization with distal splenic infarction for chronic thrombocytopenia on 09/28/21. No evidence of HE, ascites or jaundice today. - MELD Score = 10 (10/09/21) - Hold HAT PRESSER 50 mg spironolactone and lasix - Check CMP, Coags daily - strict I&Os #Chronic portal vein thrombus: interval increase in size, nonocclusive. -AC contraindicated at this time, however if source of bleeding identified and treated and thrombocytopenia remains resolved AC vs PPX lovenox could be considered in the future. Follows with Hematology and was on ppx lovenox in the past. #COPD - albuterol nebulizer 2.5 mg BID + PRN - ipatropium-albuterol nebulizer q6hrs - budesonide-formoterol inhaler PRN #HUEY Sleep study 11/27/20, which recommended CPAP. Pt does not currently wear CPAP at home. - f/u with pulmonology as outpatient - continue 2L O2 overnight #Chronic Hypothyroidism - continue HAT PRESSER levothyroxine #Depression - continue HAT PRESSER sertraline #Insomnia - hold HAT PRESSER trazodone - start ramelteon #VTE Prophylaxis Holding due to GI blled Code: Full Discharge Plan Unclear at this time Consults GI KIANA SOLIS MS3 10/09/2021 11:47 Cosigned by Olesya Silva MD MPH at 10/09/2021 15:16 EST Associated attestation - Olesya Silva MD MPH - 10/09/2021 1516 EST Attending Attestation I was present with the medical student for the history, exam, and medical decision making documented. I have personally performed my own physical exam and medical decision making. I have verified andagree with (or have edited in purple) the medical student's documentation. Olesya Silva MD MPH 10/09/2021 15:11 * Marsha Monson, RT - 10/09/2021 0950 EST Respiratory Consult/Progress Note Indications for Respiratory therapy: Home routine Data Vitals: Heart Rate: 89 BPM, Resp: 18, SpO2: 97 % FIO2/O2 Device: O2 Device: None (uses 2L at night), RT Orders: BID albuterol neb BID symbicort PRN albuterol neb PRN duoneb CPAP @ noc Daily cpap check Protocol Scoring: Bronchodilator/Inhalation Therapy Frequency Bronchodialator - Clinical Indications: History of bronchospasm Breath Sounds: Any abnormal BS decreased Response: Mild response, increase subjective per [employer]ING Pulse: <100 Resp Rate: 18-25 SOB: With exertion Total Score: 4 Comment:: Does bid with symbicort Frequency Based On Total Score: 0-4 = PRN 5-7 = QID 8-10 = Q4H 11-12 = Q2H Airway Clearance Therapy Frequency Airway Clearance - Clinical Indications: No clinical indications Breath Sounds: Clear / diminished Sputum: Small (tsp) / None Consistency: None Cough Effort: Strong/ non-productive Color: None Total Score: 0 Comment: Not indicated Frequency Based On Total Score: 0-3 = PRN 4-6 = QID and PRN 7-9 = Q4H and PRN 10-11 = Q2H and PRN Hyperinflation Therapy Frequency Hyperinflation - Clinical Indications: No clinical indications Breath Sounds: Other Surgery: No X-Ray / Atelectasis: No O2 Requirements: O2 at baseline Mobility Status: Mobile / at baseline Total: 1 Comment: Not indicated Frequency Based On Total Score: 0-3 = PRN 4-6 = QID and PRN 7-9 = Q4H and PRN 10-12 = Q2H and PRN Action/Events Patient is anxious about the plan for today. She would like to know if she is going for a procedurefor sure. Her breathing is at baseline. She feels Her home routine treatments are enough. She says she didn't go on her oxygen last night. She usually wears 2L nasal cannula. Response/Results Continue home routine. RT WARD 10/09/21 * Star Connelly, RT - 10/08/2021 2305 EST Respiratory Nocturnal BIPAP/CPAP Heart Rate: 96 BPM, Resp: 17, SpO2: 94 %, Breath Sounds Bilateral: Expiratory wheezes Patient was not placed on CPAP tonight. Patient had a sleep study done on 11/27/20 which recommended PAP therapy at night, but had no settings listed. Patient states she has never worn a CPAP ever, and does not have one at home (states she wears 2 L nasal cannula at night). CPAP has been ordered, but patient needs a pulmonary consult in order for RT to give her appropriate settings. Notified MD Gracia Sharma that patient needs pulmonary consult for CPAP initiation. stated that he will inform the day pulm team that patient needs a pulmonary consult, and that it is OK for patient to remain on a 2 L nasal cannula overnight. STAR CONNELLY, RT 10/08/21 * Maryjo Foreman, RT - 10/08/2021 1845 EST Respiratory Consult/Progress Note Indications for Respiratory therapy: Asthma Data Vitals: Heart Rate: 89 BPM, Resp: 22, SpO2: 96 % FIO2/O2 Device: , , O2 Device: None, RT Orders: BID symbicort and BID Albuterol Protocol Scoring: Bronchodilator/Inhalation Therapy Frequency Bronchodialator - Clinical Indications: History of bronchospasm Breath Sounds: Faint wheezing, decreased throughout Response: No change / no treatment Pulse: <100 Resp Rate: 18-25 SOB: With exertion Total Score: 4 Comment:: Bid with Symbicort. Frequency Based On Total Score: 0-4 = [...] Hyperinflation - Clinical Indications: No clinical indications Frequency Based On Total Score: 0-3 = PRN 4-6 = QID and PRN 7-9 = Q4H and PRN 10-12 = Q2H and PRN Action/Events Respiratory events; Consulted in ED. PT uses all MDI's at home, but nebulizer when in hospital. Response/Results Weaning and Toleration of treatments; Per protocol RT RADHA 10/08/21 documented in this encounter H&P Notes * Caesar Ling MD - 10/14/2021 0407 EST Endoscopy Sedation for Procedure History & Physical Date: 10/14/2021 Time: 15:47 Location: [facility] General Medicine Unit Planned Procedure: EGD Chief Complaint/Indications for Procedure: melena History Previous Complication with Sedation and/or Anesthesia? [...] Reglan [Metoclopramide Hcl] Rash Current Medications: Current Facility-Administered Medications Medication Route Frequency ??? albuterol (ACCUNEB) nebulizer solution 2.5 mg nebulization BID ??? albuterol (ACCUNEB) nebulizer solution 2.5 mg nebulization Q4H PRN ??? lidocaine (XYLOCAINE) 2 % viscous solution 15 mL oral Q4H PRN And ? ? aluminum & magnesium hydroxide-simethicone (MYLANTA-DS) 400-400-40 mg/5 mL suspension 15 mLoral Q4H PRN ??? budesonide-formoterol HFA (SYMBICORT) 160-4.5 mcg/actuation inhaler 2 Puff inhalation BID ??? cefTRIAXone (ROCEPHIN) 1,000 mg in sodium chloride (NS MBP) 50 mL IVPB intravenous Q24H ??? diphenhydrAMINE (BENADRYL) injection 25 mg intravenous Once PRN ??? furosemide (LASIX) tablet 40 mg oral DAILY ??? HYDROmorphone (DILAUDID) tablet 2 mg oral Q6H PRN ??? ipratropium-albuteroL (DUONEB) 0.5 mg-3 mg(2.5 mg base)/3 mL nebulizer solution 3 mL nebulization Q6H PRN ??? sodium chloride 0.9 % (NS) infusion intravenous PRN Or ??? lactated ringers (LR) infusion intravenous PRN ??? levothyroxine (SYNTHROID) tablet 25 mcg oral DAILY BEFORE BREAKFAST ??? lidocaine (PF) 10 mg/mL (1 %) injection 2 mg intradermal PRN ??? lidocaine (PF) 10 mg/mL (1 %) injection 2 mg intradermal PRN ??? lidocaine (PF) 10 mg/mL (1 %) injection 2 mg intradermal PRN ??? multivitamin (NEPHROVITE) 0.8 mg tablet 1 Tablet oral QHS ??? ondansetron (PF) (ZOFRAN) injection 4 mg intravenous PRN ??? ondansetron (PF) (ZOFRAN) injection 4 mg intravenous Q4H PRN ??? pantoprazole (PROTONIX) injection 40 mg intravenous BID ??? ramelteon (ROZEREM) tablet 8 mg oral QHS ??? sertraline (ZOLOFT) tablet 50 mg oral DAILY ??? sodium chloride 0.9 % (flush) flush 3 mL intravenous PRN ??? sodium chloride 0.9 % (flush) flush 5 mL intravenous Q8H ??? sodium chloride 0.9 % (flush) flush 5 mL intravenous Q8H ??? sodium chloride 0.9 % (flush) flush 5 mL intravenous Q8H ??? spironolactone (ALDACTONE) tablet 100 mg oral DAILY ? ? sucralfate (CARAFATE) suspension 1 g oral QID AC & HS ??? traZODone (DESYREL) tablet 250 mg oral QHS Facility-Administered Medications Ordered in Other Encounters Medication Route Frequency ??? albuterol (ACCUNEB) 2.5 mg /3 mL (0.083 %) nebulizer solution Past Medical History: Past Medical History: Diagnosis Date ??? Anemia ??? Anxiety ??? Asthma 12/10/2020 currently not taking - mild persistent - see dr. Veronica 11/20/2021 ??? Bleeding disorder (HCC-CMS) (HCC) ??? Bursitis right shoulder ??? C. difficile colitis 07/25/2015 Hospitalized after kidney stone removal ??? Chronic ITP (idiopathic thrombocytopenia) (HCC-CMS) (HCC) 12/10/2020 - see 11/20/2020 Dr. Veronica H&P, (managed by Starr Paige MD) ??? Chronic kidney disease slow to come back ??? Cirrhosis of liver (HCC-CMS) (HCC) ??? Clotting disorder (HCC-CMS) (HCC) ??? Community acquired pneumonia january 2021 ??? COPD exacerbation (HCC-CMS) (HCC) 04/26/2020 ??? Depression ??? Drug-seeking behavior Per Dr Amelia Tijerina and notes from [facility] patient misconstrued information to several providers about multiple concurrent opiate prescriptions ??? Environmental allergies ??? Exercise involving walking takes a walk daily for 20 minutes ??? GERD (gastroesophageal reflux disease) 12/10/2020 does not wake pt at night ??? Heartburn ??? Hemorrhagic disorder (HCC-CMS) (HCC) ??? History of general anesthesia ??? History of kidney stones ??? History of nephrolithiasis ??? History of peripheral edema 12/10/2020 - bilateral leg edema - see 11/20/2020 Dr. Benoit H&P ??? Hypersplenism syndrome ??? Hypersplenism syndrome ??? Hypotension 70-80/30-40 usually ??? Hypothyroidism ??? Joint replaced 199912/10/2020 nya knees ??? QUIROZ (nonalcoholic steatohepatitis) ??? Oxygen dependent 12/10/2020 HS ??? Pancytopenia (HCC) ??? Rheumatoid arthritis ??? Shortness of breath ??? Sleep apnea ??? Thrombocytopenia (HCC-CMS) (HCC) 12/10/2020 - see [...] Types: Cigarettes ??? Smokeless tobacco: Never Used Substance Use Topics ??? Alcohol use: No Family History: Family History Problem Relation Age of Onset ??? Cancer Maternal Grandmother skin ??? Diabetes Mother ??? Coronary Artery Disease Father ??? Clotting Disorder Father ??? Diabetes Brother Review of Systems as pertinent: Physical Exam Vital Signs: BP 102/59 Pulse 87 Temp 37 ??C (98.6 ??F) (Temporal) Resp 16 Ht 162.6 cm (64) Wt 94 kg (207 lb 3.7 oz) SpO2 97% BMI 35.57 kg/m?? Heart Examination: Cardiac Regularity: Regular Respiratory Examination: Respiratory Pattern: Regular Breath Sounds Right: Clear Breath Sounds Left: Clear Abdominal Examination: Obese Additional physical exam related to the proposed procedure, patient activity, disease state and treatment as pertinent: Assessment Previous complications with sedation or anesthesia?: No Airway Concerns: None/NA Anesthesia Classification: ASA 3 Plan: Proceed with sedation for procedure Fasting Time: Date of Last Liquid: 10/13/21 Time of Last Liquid: 2355 Date of Last Solid: 10/13/21 Time of Last Solid: 2100 Patient Appropriate Candidate for Planned Sedation?: Yes CAESAR LING MD 10/14/2021 15:47 Cosigned by Gaetano Campbell MD at 10/14/2021 15:52 EST * Val Morales MD - 10/08/2021 1904 EST Hospital Medicine Admission History & Physical Service Date: 10/08/2021 Admit Date: 10/08/21 Primary Care Provider: Emigdio Veronica Chief Complaint: melena, abdominal pain HPI Tara Boothe is a 61 y.o. female with a PMHx of decompensated QUIROZ cirrhosis (portal htn, hepatic encephalopathy, small esophageal varices on EGD in 2019) w/ associated thrombocytopenia/hypersplenism s/p partial splenic embolization (09/28/21), portal vein thrombosis, Hep C, asthma, COPD (no homeO2), HUEY not on CPAP, hypothyroidism, & anxiety/depression who presented to the ED with melena x 3 days and persistent abdominal pain since last discharged on 10/02/21. Pt has had abdominal pain since her partial splenic embolization for chronic thrombocytopenia on 09/28/21. She struggled with pain control during her hospitalization and was sent home with PO dilaudid. She began having tarry, black stools 3 days ago. She denies hematochezia or prior episodes of GI bleed. Hx of duodenal bulb/pyloric ulcer on CT A/P on 05/08/21; EGD in March 2021 showed esophagitis andpyloric channel ulcer. In the last 24 hours her abdominal pain worsened. She has diffuse, constant abdominal pain that is worse in the upper quadrants. It occasionally radiates through to her back. The pain is slightly relieved with pain medications. She additionally has had significant nausea for which she takes zofran at home. Denies use of NSAIDs. She denies CP, SOB, BRIGHT, hemoptysis, hematemesis. She did not initially come to the hospital when the melena appeared as she had a PCP appointment today. When she arrived at her PCP, they advised she come to the hospital via EMS. In the ED she was tachycardic, other vital signs were stable. Labs were significant for Na 135, K 3.6, Cr 0.79, Ca 7.8, WBC 12.04, Hgb 7.0, Hct 21, PLT 202. Pt was started on ceftriaxone and octreotide following CTA abdomen that preliminarily showed a slow variceal ooze. Final impression illustrated no evidence of active arterial extravasation to suggest active hemorrhage, increase in nonocclusive thrombus in main portal vein, and new wall thickening of 1st and 2nd portions of the duodenum thatcould indicate increased portal venous thrombus or HTN, or possible ulcer. She was additionally given 40 mg IV protonix and 1 unit of blood. She denies hx of significant EtOH use, former smoker w/ 40 ppd, quit a few months ago. Denies recreational drug use including marijuana/methamphetamine/cocaine/heroin. Review of Systems A complete 10 point ROS was performed and pertinent positive and negative findings listed in HPI, otherwise negative. Past Medical History: Diagnosis Date Anemia Anxiety Asthma 12/10/2020 currently not taking - mild persistent - see dr. Veronica 11/20/2021 Bleeding disorder (HCC-CMS) ([facility]) Bursitis right shoulder C. difficile colitis 07/25/2015 Hospitalized after kidney stone removal Chronic ITP (idiopathic thrombocytopenia) (HCC-CMS) (HCC) 12/10/2020 - see 11/20/2020 Dr. Glenys Denton, (managed by Starr Paige MD) Chronic kidney disease slow to come back Cirrhosis of liver (HCC-CMS) (HCC) Clotting disorder (HCC-CMS) (HCC) Community acquired pneumonia january 2021 COPD exacerbation (HCC-CMS) (HCC) 04/26/2020 Depression Drug-seeking behavior Per Dr Amelia Tijerina and notes from [facility] patient misconstrued information to several providers about multiple concurrent opiate prescriptions Environmental allergies Exercise involving walking takes a walk daily for 20 minutes GERD (gastroesophageal reflux disease) 12/10/2020 does not wake pt at night Heartburn Hemorrhagic disorder (HCC-CMS) ([facility]) History of general anesthesia History of kidney stones History of nephrolithiasis History of peripheral edema 12/10/2020 - bilateral leg edema - see 11/20/2020 Dr. Benoit H&P Hypersplenism syndrome Hypersplenism syndrome Hypotension 70-80/30-40 usually Hypothyroidism Joint replaced 199912/10/2020 nya knees QUIROZ (nonalcoholic steatohepatitis) Oxygen dependent 12/10/2020 HS Pancytopenia (HCC) Rheumatoid arthritis Shortness of breath Sleep apnea Thrombocytopenia (HCC-CMS) (HCC) 12/10/2020 - see 11/20/2020 Dr. Glenys Denton, (managed by Starr Paige MD) Thyroid disease Past Surgical History: Procedure Laterality Date APPENDECTOMY BONE MARROW BIOPSY CHOLECYSTECTOMY CYSTOSCOPY 12/03/2020 GASTRIC FUNDOPLICATION 1990 12/02/2020 - confirmed by pt HERNIA REPAIR HYSTERECTOMY JOINT REPLACEMENT Bilateral with multiple revisions of both knees KNEE SURGERY Bilateral TONSILLECTOMY WRIST SURGERY Right after fracture Social History Tobacco Use Smoking status: Current Some Day Smoker Packs/day: 0.25 Years: 35.00 Pack years: 8.75 Types: Cigarettes Smokeless tobacco: Never Used Substance Use Topics Alcohol use: No Family History Problem Relation Age of Onset Cancer Maternal Grandmother skin Diabetes Mother Coronary Artery Disease Father Clotting Disorder Father Diabetes Brother No current outpatient medications on file. Allergies [...] Reglan [Metoclopramide Hcl] Rash Objective Vitals Temp: [37.1 ??C (98.8 ??F)-37.4 ??C (99.3 ??F)] , Heart Rate: [83 BPM-116 BPM] , Pulse: [100-112] ,Resp: [15-25] , BP: (116-132)/(58-80) , SpO2: [94 %-100 %] , Numeric Pain Level (Scale 1-10): 9 Weight: There is no height or weight on file to calculate BMI. Physical Exam Constitutional: Uncomfortable appearing. Eyes: Pupils equal and reactive to light, no scleral icterus Mouth: Moist oral mucosa without apparent lesions Neck: Full ROM, supple Heart: Strong peripheral pulses, no lower extremity edema. Lungs: No Respiratory distress, symmetrical chest expansion. Diffuse inspiratory and expiratory wheezes. Abdomen: Soft, diffuse tenderness, non rigid, voluntary guarding. No pulsatile masses. Skin: No overt rashes, bruising, or lesions on exposed skin; pallor Extremities: Moving all 4 extremities spontaneously, warm and well perfused. Lower Neuro: Grossly neurologically intact with normal speech Psych: Answering questions appropriately Labs I have personally reviewed Recent Labs 10/08/21 1441 WBC 12.04 RBC 2.52* HGB 7.0* HCT 21.0* MCV 83 MCH 27.8 MCHC 33.3 PLT 202 NEUTROABS 10.06* Recent Labs 10/08/21 1441 NA 135* K 3.6 CL 105 CO2 23 BUN 22 CREATININE 0.79 CALCIUM 7.8* Imaging I have independently visualized images CT ANGIO ABDOMEN PELVIS Result Date: 10/08/2021 1. No evidence of active arterial extravasation [...] the above interpretation and agree with the findings.. Assessment Tara Boothe is a 61 y.o. female with a PMHx significant for decompensated QUIROZ cirrhosis (portal htn, hepatic encephalopathy, small esophageal varices on EGD in 2019) w/ associated thrombocytopenia/hypersplenism s/p partial splenic embolization (09/28/21), portal vein thrombosis, Hep C, asthma, COPD (no home O2), HUEY not on CPAP, hypothyroidism, & anxiety/depression who presented to ED with abdominal pain and melena and admitted for GI bleed. Likely peptic/duodenal ulcer with hx of duodenal bulb/pylorus ulcer (05/08/21). Less likely to be variceal bleeding as there is no evidence of active hemorrhage and vital signs are stable. Given 1 unit of blood in ED for Hgb 7.0. GI consulted whowill perform endoscopy in the morning. Plan #GI Bleed Melena x 3 days. CTA with no evidence of active arterial extravasation to suggest active hemorrhage. - 50 mcg/hr IV octreotide for possible variceal bleeding - s/p ceftriaxone 1g in ED, continue CTX 1 g daily - GI consulted, will perform endoscopy in AM - NPO overnight - Given 1U blood, hold off on 2nd unit if Hgb >7 given varices - repeat CBC overnight and in AM, then q12hrs - MELD labs in AM - zofran PRN for nausea - pantoprazole 40 mg IV bid - 0.5 mg IV dilaudid q3hrs prn for abdominal pain - maintain 2 large bore PIVs #Hx Decompensated QUIROZ Cirrhosis C/b portal HTN and non-occlusive portal vein thrombosis. S/p partial splenic embolization with distal splenic infarction for chronic thrombocytopenia on 09/28/21. No evidence of HE, ascites or jaundice today. - Hold HAT PRESSER 50 mg spironolactone and lasix - Check CMP, Coags - strict I&Os #Chronic portal vein thrombus: interval increase in size, nonocclusive. -AC contraindicated at this time, however if source of bleeding identified and treated and thrombocytopenia remains resolved AC vs PPX lovenox could be considered in the future. Follows with Hematology and was on ppx lovenox in the past. #COPD - albuterol nebulizer 2.5 mg BID + PRN - ipatropium-albuterol nebulizer q6hrs - budesonide-formoterol inhaler PRN #Chronic Hypothyroidism - continue HAT PRESSER levothyroxine #Depression - continue HAT PRESSER sertraline #Insomnia - hold HAT PRESSER trazodone #VTE Prophylaxis Holding due to GI blled Code: Full Discharge Plan Unclear at this time Consults GI Admission status Inpatient admission due to anticipated duration of hospitalization is two midnights or greater due to GI bleed. KIANA SOLIS MS3 10/08/2021 19:05 I was present with the medical student for the history, exam, and medical decision making documented. I have edited the medical student note as appropriate. Val Morales MD 10/08/2021 20:16 PGY-1 Internal Medicine Pager:[phone] or Cortext Cosigned by Olesya Silva MD MPH at 10/09/2021 6:50 EST Associated attestation - Olesya Silva MD MPH - 10/09/2021 0650 EST ATTENDING ATTESTATION: Date of service: 10/08/2021 The resident was present with the medical student for the history, exam, medical decision making documented by him/her. I have personally performed my own physical exam and medical decision-making. Ihave verified and agree with (or, as indicated, edited in purple) the combined medical student's/resident's documentation. Olesya Silva MD MPH documented in this encounter Procedure Notes * Apolinar Corrales PA-C - 10/16/2021 0911 EST IR Procedure Note Procedure: Limited U/S abdomen Date Performed: 10/16/2021 Radiologist/Agent Contract Clerk(s): MD Yari/WILLY Corrales Sedation/Anesthesia: None Time Out: A time-out was completed prior to procedure verifying correct patient, procedure, site, positioning, and special equipment if applicable. Estimated Blood Loss: Unless otherwise noted, there was no blood loss, specimens removed, cultures obtained, or drains retained. Specimens: n/a Fluoroscopy Time: See dictated procedure note Contrast Volume: none Complications: none Condition: stable Post Procedure Diagnosis: ascites Findings: limited ultrasound of the abdomen shows scant fluid. Paracentesis not performed. Recommendations: F/U IR PRN Apolinar Corrales PA-C 10/16/2021 9:12 Cosigned by Bobby Greenberg MD at 10/16/2021 9:25 EST documented in this encounter Consult Notes * Gaetano Campbell MD - 10/09/2021 0924 EST Gastroenterology & Hepatology Consult Note The Gastroenterology service was consulted to see Tara Boothe for Melena Requesting Physician: Olesya Silva MD M* HPI: 61 y.o.female with PMH notable for decompensated QUIROZ cirrhosis w/ hx of portal hypertensive gastropathy, small paresphageal varices, thrombocytopenia/hypersplenism s/p partial splenic embolization (09/28/21), portal vein thrombosis, and prior esophagitis and Pyloric channel Ulcer who presents with melena and persistent abdominal pain. She was last in her normal state of health 3 days ago when she noticed black stools. Continued to have black stools every day. In addition, she endorses acute on chronic, constant, epigastric pain that radiates to the back. Because of her pain, she has decreased her p.o. intake significantly although p.o. intake does not worsen the pain. Endorses associated bloating and distention. Her pain has worsened especially over the last couple months. She denies hematemesis, dysphagia, odynophagia, jaundice, confusion, hematochezia, rash. Of note, after her last endoscopy revealed an antral ulcer, she was placed on PPI for 12 weeks twice daily. Is not currently taking a PPI. She is not actively smoking. She quit a few months ago. She denies NSAID use including ibuprofen, aspirin, naproxen. Denies alcohol use at this time. Prior Endoscopies: EGD 03/26/21 Findings Esophagus: Distal erythema c/w esophagits Stomach: Pyloric channel ulcer with clean base, small hiatal henia, cold forceps biopsies taken antrum and body Duodenum: Normal Diagnosis Pyloric channel ulcer Small hital hernia Mild distal esophagitis Gastiric biopsies taken Final Diagnosis A. STOMACH, ANTRUM, BIOPSY: - Gastric fundic mucosa with no significant diagnostic abnormalities. - Negative for Helicobacter pylori on H&E stained sections. B. STOMACH, BODY, BIOPSY: - Antral mucosa with reactive (chemical) gastropathy. - Negative for Helicobacter pylori on H&E stained sections. ROS: Pertinent positives and negatives noted in the HPI PMH: As stated in HPI. MEDICATION LIST: Current Facility-Administered Medications: albuterol (ACCUNEB) nebulizer solution 2.5 mg, 2.5 mg, nebulization, BID, Morales, Chastidy, MD, 2.5mg at 10/08/212053 albuterol (ACCUNEB) nebulizer solution 2.5 mg, 2.5 mg, nebulization, Q4H PRN, Val Morales MD budesonide-formoterol HFA (SYMBICORT) 160-4.5 mcg/actuation inhaler 2 Puff, 2 Puff, inhalation, BID, Val Morales MD cefTRIAXone (ROCEPHIN) 1,000 mg in sodium chloride (NS MBP) 50 mL IVPB, 1,000 mg, intravenous, Q24H, Lc Luis MD, 1,000 mg at 10/09/21 0604 HYDROmorphone (PF) (DILAUDID) 0.5 mg/0.5 mL syringe 0.5 mg, 0.5 mg, intravenous, Q3H PRN, Lc Luis MD, 0.5 mg at 10/09/21 0744 ipratropium-albuteroL (DUONEB) 0.5 mg-3 mg(2.5 mg base)/3 mL nebulizer solution 3 mL, 3 mL, nebulization, Q6H PRN, Lc Luis MD lactated ringers (LR) infusion, 1,000 mL, intravenous, CONTINUOUS, Enrike Fraser MD, Last Rate: 100 mL/hr at 10/09/21 0833, 1,000 mL at 10/09/21 0833 levothyroxine (SYNTHROID) tablet 25 mcg, 25 mcg, oral, DAILY BEFORE BREAKFAST, Val Morales MD, 25 mcg at 10/09/21 0604 lidocaine (PF) 10 mg/mL (1 %) injection 2 mg, 2 mg, intradermal, PRN, Val Morales MD octreotide (SANDOSTATIN) 500 mcg in sodium chloride (NS) 0.9 % 250 mL infusion, 50 mcg/hr, intravenous, CONTINUOUS, Val Morales MD, Last Rate: 25 mL/hr at 10/08/21 1833, 50 mcg/hr at 10/08/21 183 ondansetron (PF) (ZOFRAN) injection 4 mg, 4 mg, intravenous, Q4H PRN, Enrike Fraser MD pantoprazole (PROTONIX) injection 40 mg, 40 mg, intravenous, BID, Lc Luis MD ramelteon (ROZEREM) tablet 8 mg, 8 mg, oral, QHS, Enrike Fraser MD sertraline (ZOLOFT) tablet 50 mg, 50 mg, oral, DAILY, Val Morales MD Facility-Administered Medications Ordered in Other Encounters: albuterol (ACCUNEB) 2.5 mg /3 mL (0.083 %) nebulizer solution, , , , Allergies Allergen Reactions Metoclopramide Nausea Only, Other (See Comments) and Shortness Of Breath Other reaction(s): RASH, SOB Jittery Morphine Anaphylaxis Sulfa (Sulfonamide Antibiotics) Anaphylaxis Tylenol [Acetaminophen] Other (See Comments) Contraindication with medical hx Flagyl [Metronidazole] Other (See Comments) Fatigue Aspirin Other (See Comments) Contraindication with medical hx Injectafer [Ferric Carboxymaltose] Lyrica [Pregabalin] Anxiety Insomnia Prochlorperazine Reglan [Metoclopramide Hcl] Rash Social History Socioeconomic History Marital status: Single Spouse name: Not on file Number of children: 3 Years of education: Not on file Highest education level: Not on file Occupational History 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 Tobacco Use Smoking status: Current Some Day Smoker Packs/day: 0.25 Years: 35.00 Pack years: 8.75 Types: Cigarettes Smokeless tobacco: Never Used Vaping Use Vaping Use: Never used Substance and Sexual Activity Alcohol use: No Drug use: Not Currently Types: Marijuana Sexual activity: Yes Partners: Male control/protection: Surgical Other Topics Concern Not on file Social History Narrative Not on file Social Determinants of Health Financial Resource Strain: Difficulty of Paying Living Expenses: Not on file Food Insecurity: Worried About Running Out of Food in the Last Year: Not on file Ran Out of Food in the Last Year: Not on file Transportation Needs: Lack of Transportation (Medical): Not on file Lack of Transportation (Non-Medical): Not on file Physical Activity: Days of Exercise per Week: Not on file Minutes of Exercise per Session: Not on file Stress: Feeling of Stress : Not on file Social Connections: Frequency of Communication with Friends and Family: Not on file Frequency of Social Gatherings with Friends and Family: Not on file Attends Baptism Services: Not on file Active Member of Clubs or Organizations: Not on file Attends Club or Organization Meetings: Not on file Marital Status: Not on file Family History Problem Relation Age of Onset Cancer Maternal Grandmother skin Diabetes Mother Coronary Artery Disease Father Clotting Disorder Father Diabetes Brother PE: Vitals: 10/08/21 2054 10/09/21 0051 10/09/21 0531 10/09/21 0730 BP: 114/59 117/56 119/58 BP Cuff Location: Left arm Left arm Left arm BP Patient Position: Semi fowlers Semi fowlers Sitting Pulse: 91 87 Resp: 18 Temp: 36.7 ??C (98.1 ??F) 36.5 ??C (97.7 ??F) 36.6 ??C (97.9 ??F) TempSrc: Tympanic Tympanic Tympanic SpO2: 94% 94% 95% 98% Weight: Height: General: Elderly female uncomfortable, but in no acute distress HEENT: No scleral Icterus Abdomen: Diffuse tenderness to palpation, no guarding or peritoneal sings Neuro: No gross motor or sensory deficits Extremities: No peripheral edema Skin: No Jaundice Laboratory/Imaging/Procedures: Data reviewed. Pertinent results are as follows: MELD-Na score: 10 at 10/09/2021 6:56 MELD score: 10 at 10/09/2021 6:56 Calculated from: Serum Creatinine: 0.89 mg/dL (Using min of 1 mg/dL) at 10/09/2021 6:56 Serum Sodium: 135 mmol/L at 10/09/2021 6:56 Total Bilirubin: 1.1 mg/dL at 10/09/2021 6:56 INR(ratio): 1.3 Ratio at 10/09/2021 6:56 Age: 61 years WBC: 12.9, Hgb: 8.2, Admission Hgb of 7, Baseline around 10 Platelets: 188 CTA A/P (10/08/21): IMPRESSION 1. No evidence of active arterial extravasation [...] cirrhosis with stigmata of portal venous hypertension. Impression and Recommendations: 61 y.o. 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 Labs were remarkable for acute on chronic anemia with a presenting hemoglobin of 7 (baseline around 10), and a meld score of 10. CTA showed interval increase in nonocclusive thrombus and new wall thickening of the first and second portions of the duodenum. Presentation consistent with an upper GI bleed. Differential includes peptic ulcer disease versus portal hypertensive gastropathy. We will plan for EGD early this afternoon. She was also found to have progressive nonobstructive chronic portal vein thrombosis in the setting of cirrhosis. This can rodarte indication for AC, however, given her GI bleed, multiple risk factors for future GI bleeidng, history of falls, we advice AGAINST anticoagulation. QUIROZ Cirrhosis: MELD-Na: 10. Etiology: NAFLD. Hx of Decompensating Events inclue Ascites, Hepatic Encephalopathy. HAV/HBV/HCV/HIV Serologies: Negative. --Daily Liver Panel, Albumin, INR, CBC -Low Na diet (<2g/day), avoid NSAIDs -Kidney function: near baseline -Hold Diuretics at this time #GI Bleed: Likely Upper GI bleed secondary to PUD vs. portal hypertensive gastropathy. Low suspicion for variceal hemorrhage -Recommend Upper Endoscopy -Continue Ceftriaxone; plan for 1 week of total Abx therapy -Continue IV PPI BID #Progressvie Non-obstructive Chronic Portal Vein Thrombus: Given her GI Bleed, previous hx of falls, and risk factors for future GI bleeding, we recommend against anticoagulation. -Given bleeding risk, we do NOT recommend AC This patient was seen and examined with Dr. Shannan Sandoval MD PGY-3, Internal Medicine [facility] Attestation statement: I performed or was present during the brown or critical portions of the visit and participated in the management of the patient. I agree with the findings and plan of care documented in the resident's/fellow's note. EGD performed. Large pyloric/duodenal bulb ulcer without high-risk stigmata. BID PPI, avoid all nsaids, biopsies obtained for h pylori. Will need repeat EGD in approx 3 mos to assess for healing. At risk for stricturing as this large ulcer heals, so be alert forsymptoms (satiety, nausea and vomiting). documented in this encounter Nursing Notes * Stefani Thrasher - 10/09/2021 1306 EST See Anesthesia record for sedation/charting documented in this encounter ED Notes * Karol Johnson - 10/08/2021 1542 EST TCALL: MANOJ SHEPPARD 1960 REF BY [facility] ADULT PRIMARY FOR TACHYCARDIA, NOT EATING, POSSIBLE BLEED. HX EMBOLIZATION PROCEDURE OF SPLEEN AND THROMBOCYTOPENIA (MMZ) * Laxmi Cai MD - 10/08/2021 1540 EST This patient received an evaluation and medical screening exam for emergent medical conditions at the [facility] on 10/08/2021 Scribe attestation: This documentation is recorded by Xavier He acting as Scribe under the direction and presence of Laxmi Cai MD. Laxmi Cai MD: I personally performed the services recorded by the scribe in my presence.I confirm the scribe's documentation has been reviewed by me to accurately and completely record mywork, treatment, procedures, and medical decision making. Chief Complaint GI bleed FINA Boothe is a 61 y.o. female with PMH including Partial SBO, Embolism of splenic artery, splenic vein thrombosis, hematuria, and chronic respiratory failure with hypoxia who presents to the EDfor GI bleed. The patient reports that last week she had abdominal tenderness which has not alleviated. The patient states that the bloody stool began 3 days ago and has never happened before. The patient was at her PCP today for a follow up and was sent to the ED via EMS. The patient endorses a history of blood issues and is followed by hematology. On assessment the patient was retching but never vomited. The patient is positive for chills, nausea, melena, and abdominal pain. The patient denies dysuria and hematemesis. History was provided by: patient, EMS, and medical records. Patient's pertinent PMH, FH, SH were reviewed and updated PRN. ROS A 10 point review of systems has been performed and is otherwise negative except as noted in the HPI. Physical Exam Vital Signs Vitals Reassessment?: Yes Temp: 36.9 ??C (98.4 ??F) Temp src: Tympanic Pulse: 100 Heart Rate: 96 BPM Resp: 17 SpO2: 94 % BP: 122/59 BP MAP: 88 mm Hg BP Device: BP Machine BP Patient Position: Semi fowlers BP Cuff Location: Left arm O2 Device: None (Room air) Nursing notes and vital signs were reviewed. Constitutional: Uncomfortable appearing. Eyes: Pupils equal and reactive to light, no scleral icterus. Conjunctiva pale. Mouth: Moist oral mucosa without apparent lesions Neck: Full ROM, no cervical LAD Heart: Strong peripheral pulses, no lower extremity edema. Tachycardic. Lungs: No Respiratory distress, symmetrical chest expansion. Abdomen: Soft, diffuse tenderness, non ridged, volentary guarding. Skin: No overt rashes, bruising, or lesions on exposed skin Extremities: Moving all 4 extremities spontaneously, warm and well perfused. Lower extremity non tender and not swollen. Neuro: Grossly neurologically intact with normal speech Psych: Extremely anxious. Laboratory Results Labs Reviewed COMPLETE BLOOD COUNT AND DIFFERENTIAL - Abnormal Result Value Status WBC 12.04 Final RBC 2.52 (*) Final Hemoglobin 7.0 (*) Final HCT 21.0 (*) Final MCV 83 Final MCH 27.8 Final MCHC 33.3 Final RDW-CV 15.7 (*) Final RDW-SD 46.6 Final PLT 202 Final MPV 9.3 (*) Final Neutrophils 83.7 Final Lymphocytes 3.2 Final Monocytes 9.8 Final Eosinophils 0.2 Final Basophils 0.2 Final Immature Grans 2.9 Final Absolute Neutrophils 10.06 (*) Final Absolute Lymphocytes 0.39 (*) Final Absolute Monocytes 1.18 (*) Final Absolute Eosinophils 0.03 Final Absolute Basophils 0.03 Final Absolute Immature Grans 0.35 (*) Final Type of Differential: Auto Final BASIC METABOLIC PANEL (BMP) - Abnormal Sodium 135 (*) Final Potassium 3.6 Final Chloride 105 Final CO2 Total 23 Final Anion Gap 7 (*) Final Glucose 93 Final Calcium 7.8 (*) Final BUN 22 Final Creatinine 0.79 Final eGFR 81 Final INFLUENZA A AND B,RSV PCR - Normal FLU A RNA Result (FLARES) Negative Final FLU B RNA Result (FLBRES) Negative Final RSV RNA Result (RSVRES) Negative Final COVID-19 TESTING COVID-19 rt-PCR Result Negative Final Performing Lab [facility] Final [facility] HOLD BLUE TOP Hold Hold Final COMPLETE BLOOD COUNT BLOOD BANK HOLD Hold BB Spec will exp at 23:59, 3 days from collect date Final PREPARE RED BLOOD CELLS Product Code D2605D95 Final Donor Number [id number] Final Unit ABO O Final Unit Rh POS Final Cross Match Interp Compatible Final Unit Status XM^Crossmatch Final Product Expiration Date [id number] Final Unit Blood Type Code 5100 Final Volume 330 Final Coding System [id number] Final PREPARE RED BLOOD CELLS Product Code [id number] Final Donor Number [id number] Final Unit ABO O Final Unit Rh POS Final Unit Status TR^Transfuse Final Product Expiration Date [id number] Final Unit Blood Type Code 5100 Final Volume 280 Final Coding System [id number] Final TYPE AND SCREEN ABO O Final Rh Factor Positive Final Antibody Screen Negative Final Specimen Expires: 10/11/2021 @ 23:59 Final Data Interpretation An EKG was obtained and independently interpreted: Sinus Rhythm, rate 97 bpm, UT 132, QRS 90, QTC 411 Laboratory results independently reviewed, significant for: H&H 7, otherwise unremarkable. Imaging obtained was reviewed and independently interpreted: Imaging Results CT ANGIO ABDOMEN PELVIS (Final result) Result time 10/08/21 17:46:[address] ABDOMEN PELVIS W CONTRAST Final result Impression: 1. No evidence of active arterial extravasation [...] above interpretation and agree with the findings. Narrative: CT ANGIO ABDOMEN PELVIS 10/08/2021 4:05 PM [...] in the lumbar spine and both hips. Preliminary result Impression: 1. No evidence of active arterial extravasation to suggest active hemorrhage. 2. Interval increase in nonocclusive thrombus in the main portal vein. 3. New wall thickening of the first and second portions of the duodenum which could be due to increased portal venous thrombus or possible ulcer. 4. 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 5. Liver cirrhosis with stigmata of portal hypertension. These findings were discussed by phone with Dr. Cai by Dr. Dawson on 10/08/2021 5:34 PM. Narrative: PRELIMINARY RESIDENT REPORT CT ANGIO ABDOMEN PELVIS 10/08/2021 4:05 PM [...] in the lumbar spine and both hips. Preliminary result Impression: 1. No evidence of active arterial extravasation to suggest active hemorrhage. 2. Interval increase in nonocclusive thrombus in the main portal vein. 3. New wall thickening of the first and second portions of the duodenum which could be due to increased portal venous thrombus or possible ulcer. 4. 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 5. Liver cirrhosis with stigmata of portal hypertension. These findings were discussed by phone with Dr. Cai by Dr. Dawson on 10/08/2021 5:34 PM. Narrative: PRELIMINARY RESIDENT REPORT CT ANGIO ABDOMEN PELVIS 10/08/2021 4:05 PM [...] in the lumbar spine and both hips. Preliminary result Impression: 1. No evidence of active arterial extravasation to suggest active hemorrhage. 2. Interval increase in nonocclusive thrombus in the main portal vein. 3. New wall thickening of the first and second portions of the duodenum which could be due to increased portal venous thrombus or possible ulcer. 4. 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 5. Liver cirrhosis with stigmata of portal hypertension. These findings were discussed by phone with Dr. Cai by Dr. Dawson on 10/08/2021 5:34 PM. Narrative: PRELIMINARY RESIDENT REPORT CT ANGIO ABDOMEN PELVIS 10/08/2021 4:05 PM [...] aspect of the first portion of the duodenum. Scattered colonic diverticulosis. Peritoneal cavity / Subperitoneal [...] in the lumbar spine and both hips. Preliminary result Impression: 1. No evidence of active arterial extravasation to suggest active hemorrhage. 2. Interval increase in nonocclusive thrombus in the main portal vein. 3. New wall thickening of the first and second portions of the duodenum which could be due to increased portal venous thrombus or possible ulcer. 4. 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 5. Liver cirrhosis with stigmata of portal hypertension. . Narrative: PRELIMINARY RESIDENT REPORT CT ANGIO ABDOMEN PELVIS 10/08/2021 4:05 PM [...] aspect of the first portion of the duodenum. Scattered colonic diverticulosis. Peritoneal cavity / Subperitoneal [...] in the lumbar spine and both hips. Procedures Procedures None Medical Decision Making Tara Boothe is a 61 y.o. female who presents to the ED for melena and ongoing abdominal pain inthe setting of having had a recent splenic embolization. Patient hemodynamically stable but in significant discomfort. Patient unlikely to have repercussions of the splenic embolization. She is not anticoagulated but given the GI bleed in the setting of her having liver disease possible variceal orpeptic ulcer related. Patient with significant drop in her H&H. No reversible medication cause.Blood products given. CT angiogram ordered to look for source of bleeding. Will require hospitalization. ED Course A medical screening was performed. 16:39 Radiology called and reported that CT showed that the patient's spleen was significantly bleeding. 16:40 Paged IR. 16:50 IR is aware of patient and they will assess them. 16:51 Paged Hospitalist. 17:28 Discussed with Saida Peterson MD who will admit to Medicine. 17:33 IR called and reported there was no Splenic bleed. They recommend GI evaluation. Giving octreotide, ceftriaxone, and pantoprazole. 17:[address] Darden in GI who is aware of the patient's case. He does not recommend any other intervention. While under my care in the Emergency Department, the patient's pain was managed to an adequate level weighing risk vs. benefit of medication. Patient was admitted to Medicine under care of Olesya Silva MD. Clinical Impression Final diagnoses: GI bleeding Disposition Admitted The patient's pain was managed to an adequate level weighing risk vs. benefit of further medications. Any further pain treatment will be at the discretion of the provider following up with the patient based on their clinical assessment. * Meche Langford RN - 10/08/2021 1535 EST Assumed care of pt d/t pt needing higher level of acuity. Pt states that she has had belly pain since her procedure that never went away. She took PO hydromorphone at home with no relief. She states that the pain is consistent. Pt is also c/o nausea and is dry heaving. Pt has had two dark stools per nurse handing off care of pt to screenplay writer. Pt states that they started two days ago. Pt is on tele, in gown, has call hines and commode at bedside. Pt has already had blood work sent. Pt is requesting pain medication at this time. * Jacy Leos RN - 10/08/2021 1529 EST Report given to Meche HAWK. * Katelyn Drummond RN - 10/08/2021 1451 EST Pt assisted to bedside commode and had medium bloody bowel movement. Pt denies dizziness at this time. Pt states she does not have history of GI bleed but sees system administration manager for thinned blood (unable to elaborate). Pt vitally stable, labs drawn per protocol. Report given to KENN Olivia. Pt in gown and on continuous NBP, Spo2, tele. * Sheyla Vela RN - 10/08/2021 1444 EST RN assisted pt to bedside commode- pt had medium dark bloody stool. documented in this encounter Miscellaneous Notes * Plan of Care - Ange Rubalcava RN - 10/17/2021 1122 EST Discharge instructions reviewed with pt, instructions included medication changes/schedule and needfor follow up appts. Verbalized understanding of all instructions given, no further questions or concerns verbalized at this time. Meds to be delivered via Meds to Beds before leaving. Denies furtherneeds, will call patient transport when ready. * Plan of Care - Ange Rubalcava RN - 10/17/2021 0745 EST Sitting up at edge of bed, physical assessment completed, pt is alert/oriented x 3. Denies needs currently. Call light in reach, will continue to monitor. * Plan of Care - Meche Dunlap RN - 10/17/2021 0335 EST Problem: Daily Care Plan Goals Goal: Care Plan Documentation Outcome: Ongoing Flowsheets (Taken 10/16/20212105) Area of Focus: Sleep Goal This Shift: pt will experience adequate sleep overnight Data: Assumed pt care at 1900. A&Ox3. Independent. Continent. Pt experiencing nausea and pain in the upper abdomen that worsens after eating. Pt has 2+ edema of the BLEs, tender to touch. On 2L O2 via NC overnight, satting well. Action: Meds given per eMAR. PRN Dilaudid given x2 overnight for pain. PRN Zofran given for nausea.LATRICE stockings removed overnight, lower extremities elevated on pillows. Hourly safety checks completed. Response: Pt received adequate sleep overnight, currently resting comfortably in bed. Will continueto monitor. MECHE DUNLAP RN 10/17/2021 6:56 Problem: High Fall Risk: Goal: Patient Will Remain Free from Fall-Related Injury Outcome: Ongoing Problem: PAIN Goal: Patient's pain/discomfort is manageable/tolerable Outcome: Ongoing Problem: NAUSEA AND VOMITING Goal: Patient Will Experience Relief from Nausea and Vomiting Outcome: Ongoing * Plan of Care - Kellee Coats RN - 10/16/2021 1906 EST Problem: PAIN Goal: Patient's pain/discomfort is manageable/tolerable Outcome: Ongoing Problem: NAUSEA AND VOMITING Goal: Patient Will Experience Relief from Nausea and Vomiting Outcome: Ongoing Data: Assumed care at 0700. Pt reports pain in upper mid abdomen as well as nausea. H&H was within normal range and didn't receive a blood transfusion today. Action: Pt medicated with prn zofran and dilaudid x 2 this shift. Response: Pain and nausea controlled at this time. Patient resting with eyes open in bed at this time. KELLEE COATS RN 10/16/2021 19:07 * Plan of Care - Meche Dunlap RN - 10/16/2021 0447 EST Problem: Daily Care Plan Goals Goal: Care Plan Documentation Outcome: Ongoing Flowsheets (Taken 10/15/2021 2346) Area of Focus: Sleep Goal This Shift: pt will experience adequate sleep overnight Data: Assumed pt care at 2300. A&Ox3. On 2L O2 via NC overnight. Independent. Continent. Pt c/o9/10 upper abdominal pain and nausea. Action: Meds given per eMAR. PRN Dilaudid given for pain. PRN Zofran given for nausea. Latrice stockings in place and lower extremities elevated overnight. 1.5L fluid restriction. Hourly safety checks completed. Response: Pt slept well overnight. The PRN zofran and dilaudid were effective as pt was able to fall back asleep and rest for several more hours post admin. O2 sats remained stable around 95% on 2L overnight. Will continue to monitor. MECHE DUNLAP RN 10/16/2021 4:47 Problem: High Fall Risk: Goal: Patient Will Remain Free from Fall-Related Injury Outcome: Ongoing Problem: PAIN Goal: Patient's pain/discomfort is manageable/tolerable Outcome: Ongoing Problem: NAUSEA AND VOMITING Goal: Patient Will Experience Relief from Nausea and Vomiting Outcome: Ongoing * Plan of Care - Kellee Coats RN - 10/15/2021 1807 EST Problem: PAIN Goal: Patient's pain/discomfort is manageable/tolerable Outcome: Ongoing Problem: NAUSEA AND VOMITING Goal: Patient Will Experience Relief from Nausea and Vomiting Outcome: Ongoing Data: Assumed care at 0700. Pt reports pain in upper mid abdomen as well as nausea. H&H was within normal range and didn't receive a blood transfusion today. Action: Pt medicated with prn zofran and dilaudid x 2 this shift. Response: Pain and nausea controlled at this time. Patient resting with eyes open in bed at this time. KELLEE COATS RN 10/15/2021 18:08 * Plan of Care - Stefani Arana RN - 10/15/2021 0435 EST Problem: Daily Care Plan Goals Goal: Care Plan Documentation Flowsheets (Taken 10/15/2021 3395) Area of Focus: Pain/ Comfort Goal This Shift: Pt will report pain less than 6 Note: Data: Assumed care at 2300. Pt reports pain in upper mid abdomen as well as nausea. Pt continues toreport poor po intake. Action: Pt medicated with prn zofran and dilaudid x 1 this shift. Response: Pt asleep on reassessment. Pain and nausea controlled at this time. Will continue to monitor. STEFANI ARANA RN 10/15/2021 4:20 * Plan of Care - Isaiah Schmid RN - 10/14/2021 1430 EST Problem: Daily Care Plan Goals Goal: Care Plan Documentation Outcome: Ongoing Problem: PAIN Goal: Patient's pain/discomfort is manageable/tolerable Outcome: Not Met This Shift Data: pt alert and oriented x3. Pt NPO for egd today. Complaints of abd pain. Adequately urinating.Pt reports dark stools. Abd tenderness noted to upper mid abd. Pt ambulating unit with steady gait. Action: 1unit of PRBC administered. Pain medications administered as per JAN. Ambulation encouraged. Response: resting in bed comfortably. Call hines within reach. Frequent rounding to meet pt needs. ISAIAH SCHMID RN 10/14/2021 * Plan of Care - Stefani Arana RN - 10/14/2021 0497 EST Problem: Daily Care Plan Goals Goal: Care Plan Documentation Flowsheets (Taken 10/14/2021 0435) Area of Focus: Pain/ Comfort Goal This Shift: Pt will rate pain 6 or less Note: Data: Assumed care at 2300. Pt is alert and oriented x 3 and independent in the room. Pt reports 8-9/10 pain in her bilateral lower extremities and in upper mid abdomen. She has +2-+3 pitting edema in her bilateral lower extremities. Pt also reports emesis x 1 this shift. Pt reports emesis was yellowish green. Action: Pt medicated with prn zofran and dilaudid q 3-4 hours over night. Pt encouraged to elevate bilateral lower extremities while in bed. Pt currently wearing compression stockings. Response: Pt is currently resting quietly in bed. Pt appears comfortable at this time. STEFANI ARANA RN 10/14/2021 4:39 * Plan of Care - Paola Kingsley RN - 10/13/2021 1707 EST Problem: PAIN Goal: Patient's pain/discomfort is manageable/tolerable Outcome: Ongoing Problem: NAUSEA AND VOMITING Goal: Patient Will Experience Relief from Nausea and Vomiting Outcome: Ongoing Problem: High Fall Risk: Goal: Patient will Remain Free of Falls due to Altered Elimination Outcome: Completed Patient A/Ox3. VSS. CMS intact, but BLE with +2 pitting edema. Pain to abdomen requiring PO PRN Dilaudid. Nausea requiring IV Zofran. Pt with H/H of 6.8/20.4 this morning; pt received 1 unit PRBCs. VS remain stable. Pt is NPO at midnight for possible GI intervention tomorrow. Resting comfortably inchair at this time, will continue to monitor. * Plan of Care - Gisel Ashley RN - 10/13/2021 0320 EST Problem: High Fall Risk: Goal: Patient will Remain Free of Falls due to Med. Side Effects Outcome: Met This Shift Problem: High Fall Risk: Goal: Patient Will Remain Free from Fall-Related Injury Outcome: Met This Shift Problem: Daily Care Plan Goals Goal: Care Plan Documentation Outcome: Met This Shift Problem: High Fall Risk: Goal: Patient will Remain Free of Falls due to Altered Elimination Outcome: Met This Shift Problem: High Fall Risk: Goal: Patient will Remain Free of Falls due to Dizziness/Vertigo Outcome: Met This Shift Data: Pt admitted with GI bleeding. Pt alert and oriented x3, able to make needs known. VSS on roomair. Independent OOB to the bathroom, continent x2. Antibiotics infusing without difficulty. Pt complains of nausea and 9/10 upper abdomen pain. Action: Assumed care at 1900. Medications administered per MAR including PRN pain medication and zofran. See MAR for details. Hourly rounds and safety checks performed. Care clustered to promote rest. Response: Pt resting intermittently. No s/s of immediate distress. Needs met per patient request. Bed in lowest, locked, with call hines within reach. POC continued. GISEL ASHLEY RN 10/13/2021 3:20 * Plan of Care - Heike Hamlin RN - 10/12/2021 1858 EST Problem: Daily Care Plan Goals Goal: Care Plan Documentation Outcome: Ongoing Data: pt has been complaining of abd pain today and leg cramps Action: Pt has been educated on walking and drinking fluids Response: pt has had pain meds 2 times today and has been walking a lot HEIKE HAMLIN RN 10/12/2021 19:06 * Plan of Care - OdilonDana RN - 10/12/2021 0118 EST Problem: Daily Care Plan Goals Goal: Care Plan Documentation Outcome: Ongoing Flowsheets (Taken 10/11/2021 194) Area of Focus: Pain/ Comfort Goal This Shift: Pt will rate pain < 8/10 this shift. Data: Assumed care @ 1900. A&O x 3. PMHx decompensated cirrhosis, portal HTN, hepatic encephalopathy, thrombocytopenia/hypersplenism, COPD, HUEY. Pt presented to the ED w/ x3 days of melena accompanied by persistent abd pain. Pt is currently rating pain 8-9/10 to the mid-epigastric region. Also c/o sharp pain to the RUQ and LUQ w/ inhaling. Abd is firm and tender upon palpation - particularly to RUQ. Hypoactive BS. Endorses presence of nausea. On 2L NC satting 94% and above. Contact guard assist w/ ambulation. Pt ambulated ten laps to relieve cramping to BLE- tolerated well. Pt experiencedmild SOB when ambulating an additional 3 laps. Continent of bowel and bladder. No signs of bleedingthis shift. IV access in left hand and left anterior forearm. Action: Hourly safety rounding. Scheduled meds administered per JAN. PRN Dilaudid and PRN Zofran administered. Encouraged fluid intake and provided jello and toast - tolerated well. Assisted pt OOB to bedside recliner and back to bed. Response: Pt in bedside recliner resting w/ call hines within reach. Able to make needs known. No BMs this shift. Exhibits no signs of distress at this time. Will CTM and ensure adequate pain management. Problem: High Fall Risk: Goal: Patient will Remain Free of Falls due to Dizziness/Vertigo Outcome: Met This Shift Problem: High Fall Risk: Goal: Patient will Remain Free of Falls due to Altered Elimination Outcome: Met This Shift Problem: High Fall Risk: Goal: Patient Will Remain Free from Fall-Related Injury Outcome: Met This Shift * Plan of Care - Sharon Louis RN - 10/11/2021 1210 EST Data Pt admitted for GI bleeding. Awake alert oriented x3. Vitals Q8. Independent with ambulation. Uses bathroom. Pt expresses upper gastric pain. On regular diet. Q8 I&Os. Tele discontinued today. Pleasant and interactive. Receives 2L nasal canula at bedtime along with continuous pulse ox. Independently ambulates in the mora, walked a few laps today. Last bm was yesterday. Action Given dilaudid and zofran Q4 for pain and nausea. Make needs known. Meds given per JAN schedule. Hourly rounds and safety checks completed. Response Pt resting comfortably. Call hines within reach. Bed alarm on. Will continue to monitor per plan. SHARON LOUIS RN 10/11/2021 12:10 Problem: High Fall Risk: Goal: Patient will Remain Free of Falls due to Med. Side Effects Outcome: Ongoing Problem: High Fall Risk: Goal: Patient Will Remain Free from Fall-Related Injury Outcome: Ongoing Problem: Daily Care Plan Goals Goal: Care Plan Documentation Outcome: Ongoing Problem: High Fall Risk: Goal: Patient will Remain Free of Falls due to Altered Elimination Outcome: Ongoing Problem: High Fall Risk: Goal: Patient will Remain Free of Falls due to Dizziness/Vertigo Outcome: Ongoing * Plan of Care - GarrettdannyDana RN - 10/11/2021 0105 EST Problem: Daily Care Plan Goals Goal: Care Plan Documentation Outcome: Ongoing Flowsheets (Taken 10/10/20212054) Area of Focus: GI//Elimination Goal This Shift: Pt will not present w/ blood in the stool this shift. Data: Assumed care @ 1900. PMHx decompensated cirrhosis, portal HTN, hepatic encephalopathy, thrombocytopenia/hypersplenism, COPD, HUEY. Pt presented to the ED w/ x3 days of melena accompanied by persistent abd pain. Pt is currently rating pain 8-9/10 to the mid-epigastric region. Endorses presence of nausea. Per pt report, x1 occurrence of vomiting after dinner - unwitnessed. Pt is A&O x 3. On 2L NC satting 94% and above. Pt tachycardic in the 105-115 range w/ SOB at rest towards the start of shift - resolved w/ O2 administration and scheduled respiratory tx delivered by RT. On tele displaying NSR w/ frequent occasions of sinus tachycardia. Contact guard assist w/ ambulation. Pt ambulated two laps (800 ft) and HR elevated to 143 w/ PVCs; HR decreased to 98 after ambulating. Continent of bowel and bladder. No signs of bleeding this shift. IV access in left hand and left forearm. Action: Hourly safety rounding. Scheduled meds administered per JAN. PRN Dilaudid and PRN Zofran administered. Encouraged fluid intake and provided jello and pudding - tolerated well. Assisted pt OOBto bedside recliner and back to bed. Response: Pt in bedside recliner resting w/ call hines within reach after ambulating three more lapsaround the unit. Able to make needs known. No BMs this shift. Exhibits no signs of distress at thistime. Will CTM and ensure adequate pain management. Problem: High Fall Risk: Goal: Patient will Remain Free of Falls due to Dizziness/Vertigo Outcome: Met This Shift Problem: High Fall Risk: Goal: Patient Will Remain Free from Fall-Related Injury Outcome: Met This Shift Problem: High Fall Risk: Goal: Patient will Remain Free of Falls due to Med. Side Effects Outcome: Met This Shift DANA GUAJARDO RN 10/11/2021 1:05 * Plan of Care - Gricelda Kincaid RN - 10/10/2021 1001 EST Assumed care of pt at 0700, Pt A&Ox3, independent in room. Pt had dark BM this morning, picture uploaded to chart. PT c/o dizziness and 10/10 pain after BM. MD aware. Pt tolerating full liquids well with addition of carafate, pt asking to increase diet for dinner, pt tolerated dinner (meatloaf and spinach) poorly and c/o increased nausea. Hourly rounding, I&O's recorded, on telemetry, meds given per JAN. * Plan of Care - Dana Guajardo RN - 10/10/2021 0337 EST Problem: Daily Care Plan Goals Goal: Care Plan Documentation Outcome: Ongoing Flowsheets (Taken 10/09/20212122) Area of Focus: Sleep Goal This Shift: Pt will report good sleep this shift. Data: Assumed care @ 1900. PMHx decompensated cirrhosis, portal HTN, hepatic encephalopathy, thrombocytopenia/hypersplenism, COPD, HUEY. Pt presented to the ED w/ x3 days of melena accompanied by persistent abd pain. Pt is currently rating pain 8-9/10 to the mid-epigastric region. Pt also c/o sore throat r/t EGD procedure yesterday 10/09. Endorses presence of nausea w/o vomiting. Pt is A&O x 3. On 3L NC satting 94% and above. On tele displaying NSR. Contact guard assist w/ ambulation. Continent of bowel and bladder. Urine was ange this shift. No signs of bleeding this shift. IV access in left hand and right AC. Continuous LR running @ 75 mL/hr. Action: Hourly safety rounding. Scheduled meds administered per JAN. PRN Dilaudid and PRN Zofran administered. Encouraged fluid intake and provided jello and pudding for relief of sore throat. Response: Pt in bed resting w/ call hines within reach. Able to make needs known. Rates pain 07/31. Exhibits no signs of distress at this time. Will CTM and ensure adequate pain management. Problem: High Fall Risk: Goal: Patient will Remain Free of Falls due to Med. Side Effects Outcome: Met This Shift Problem: High Fall Risk: Goal: Patient Will Remain Free from Fall-Related Injury Outcome: Met This Shift DANA GUAJARDO RN 10/10/2021 3:37 * Plan of Care - Gricelda Kincaid RN - 10/09/2021 4157 EST Assumed care of pt at 0700, PT A&Ox3, contact guard to bathroom. Pt ambulated 420ft. EGD today. Pt tolerating liquids well. Tolerating solid food poorly, only ate half a turkey sandwich. Pt c/o 08/30 epigastric pain, meds given per JAN. Hourly rounds, I&O's, Q4 VS, tele monitoring. * Plan of Care - Gisel Ashley RN - 10/09/2021 4101 EST Problem: High Fall Risk: Goal: Patient will Remain Free of Falls due to Med. Side Effects Outcome: Met This Shift Problem: High Fall Risk: Goal: Patient Will Remain Free from Fall-Related Injury Outcome: Met This Shift Data: Pt admitted with GI bleeding. Pt alert and oriented x3, able to make needs known. VSS on roomair. SBA to the bathroom, continent x2. Antibiotics infusing without difficulty. NPO status maintained. Pt complains of nausea and 9/10 upper abdomen pain. Action: Assumed care at 1900. Medications administered per MAR including PRN pain medication and zofran. See MAR for details. Hourly rounds and safety checks performed. Care clustered to promote rest. Response: Pt resting intermittently. No s/s of immediate distress. Needs met per patient request. [facility], with call hines within reach. POC continued. GISEL ASHLEY RN 10/09/2021 3:44 documented in this encounter Plan of Treatment Upcoming Encounters Date Type Department Care Team (Late st Contact Info) Description 01/04/2025 13:00 EST Office Visit [facility] Ophthalmology - [address] [id number] Gagandeep Rome MD [address] [place] [address], [facility] [address] [place] [phone] 02/11/2025 13:30 EDT Telemedicine [facility] - [address] [address] Dana Padilla MD [address] [place] [address], [address] [place] [phone] Pending Results Name Type Priority Associated Diagnoses Date /Time TRANSFUSE RED BLOOD CELLS Transfuse STAT 10/08/2021 16:47 EST TRANSFUSE RED BLOOD CELLS Transfuse Routine 10/13/2021 10:31 EST UPPER ENDOSCOPY (EGD) GI Routine 16:08 EST documented as of this encounter Procedures Procedure Name Priority Date/Time Associated Diagnosis Comments ECG REPORT - SCANNED 10/21/2021 12:52 EST UPPER ENDOSCOPY PROCEDURE Routine 10/17/2021 7:38 EST PTT Routine 10/17/2021 5:39 EST PROTIME Routine 10/17/2021 5:39 EST COMPLETE BLOOD COUNT Routine 10/17/2021 5:39 EST COMPREHENSIVE METABOLIC PANEL (CMP) Routine 10/17/2021 5:39 EST IR LIMITED U/S ABDOMEN Routine 9:22 EST PTT Routine 10/16/2021 5:39 EST PROTIME Routine 10/16/2021 5:39 EST COMPLETE BLOOD COUNT Routine 10/16/2021 5:39 EST COMPREHENSIVE METABOLIC PANEL (CMP) Routine 10/16/2021 5:39 EST DRY POWDERED OR METERED DOSE INHALER Routine 10/16/2021 0:05 EST NEBULIZER TX INTERMITTENT Routine 10/16/2021 0:05 EST ZZCOVID-19 TEST [facility] PCR Today 10/15/2021 10:51 EST COVID-19 TESTING Routine 10/15/2021 10:5 1 EST EXPANDED RESPIRATORY VIRAL PANEL, PCR (DOES NOT INCLUDE INFLUENZA OR RSV) Routine 10/15/2021 10:51 EST ZZHN INFLUENZA A AND B, RSV PCR Routine 10/15/2021 10:51 EST PTT Routine 10/15/2021 5:34 EST PROTIME Routine 10/15/2021 5:34 EST COMPLETE BLOOD COUNT Routine 10/15/2021 5:34 EST COMPREHENSIVE METABOLIC PANEL (CMP) Routine 10/15/2021 5:34 EST DRY POWDERED OR METERED DOSE INHALER Routine 10/15/2021 0:05 EST DRY POWDERED OR METERED DOSE INHALER Routine 10/15/2021 0:05 EST NEBULIZER TX INTERMITTENT Routine 10/15/2021 0:05 EST NEBULIZER TX INTERMITTENT Routine 10/15/2021 0:05 EST COMPLETE BLOOD COUNT Routine 10/14/2021 19:03 EST LACTIC ACID STAT 10/14/2021 19:02 EST UPPER ENDOSCOPY (EGD) Routine 10/14/2021 16:08 EST TRANSFUSE RED BLOOD CELLS Routine 10/14/2021 13:27 EST PREPARE RED BLOOD CELLS Routine 10/14/2021 11:30 EST PTT Routine 10/14/2021 7:23 EST PROTIME Routine 10/14/2021 7:23 EST COMPLETE BLOOD COUNT Routine 10/14/2021 7:23 EST COMPREHENSIVE METABOLIC PANEL (CMP) Routine 10/14/2021 7:22 EST DRY POWDERED OR METERED DOSE INHALER Routine 10/14/2021 0:05 EST DRY POWDERED OR METERED DOSE INHALER Routine 10/14/2021 0:05 EST NEBULIZER TX INTERMITTENT Routine 10/14/2021 0:05 EST NEBULIZER TX INTERMITTENT Routine 10/14/2021 0:05 EST COMPLETE BLOOD COUNT Routine 10/13/2021 17:44 EST TYPE AND SCREEN Routine 10/13/2021 8:14 EST PREPARE RED BLOOD CELLS Routine 10/13/2021 7:42 EST PTT Routine 10/13/2021 6:34 EST PROTIME Routine 10/13/2021 6:34 EST FIBRINOGEN Add-On 10/13/2021 6:34 EST COMPLETE BLOOD COUNT Routine 10/13/2021 6:34 EST COMPREHENSIVE METABOLIC PANEL (CMP) Routine 10/13/2021 6:34 EST DRY POWDERED OR METERED DOSE INHALER Routine 10/13/2021 0:05 EST DRY POWDERED OR METERED DOSE INHALER Routine 10/13/2021 0:05 EST NEBULIZER TX INTERMITTENT Routine 10/13/2021 0:05 EST NEBULIZER TX INTERMITTENT Routine 10/13/2021 0:05 EST UPPER ENDOSCOPY PROCEDURE Routine 10/12/2021 16:52 EST PTT Routine 10/12/2021 7:39 EST PROTIME Routine 10/12/2021 7:39 EST COMPLETE BLOOD COUNT Routine 10/12/2021 7:39 EST MAGNESIUM Add-On 10/12/2021 7:39 EST COMPREHENSIVE METABOLIC PANEL (CMP) Routine 10/12/2021 7:39 EST DRY POWDERED OR METERED DOSE INHALER Routine 10/12/2021 0:05 EST DRY POWDERED OR METERED DOSE INHALER Routine 10/12/2021 0:05 EST NEBULIZER TX INTERMITTENT Routine 10/12/2021 0:05 EST NEBULIZER TX INTERMITTENT Routine 10/12/2021 0:05 EST PTT Routine 10/11/2021 7:40 EST PROTIME Routine 10/11/2021 7:40 EST COMPLETE BLOOD COUNT Routine 10/11/2021 7:40 EST COMPREHENSIVE METABOLIC PANEL (CMP) Routine 10/11/2021 7:40 EST DRY POWDERED OR METERED DOSE INHALER Routine 10/11/2021 0:05 EST DRY POWDERED OR METERED DOSE INHALER Routine 10/11/2021 0:05 EST NEBULIZER TX INTERMITTENT Routine 10/11/2021 0:05 EST NEBULIZER TX INTERMITTENT Routine 10/11/2021 0:05 EST COMPREHENSIVE METABOLIC PANEL (CMP) Routine 10/10/2021 10:08 EST PTT Routine 10/10/2021 7:43 EST PROTIME Routine 10/10/2021 7:43 EST COMPLETE BLOOD COUNT Routine 10/10/2021 7:43 EST DRY POWDERED OR METERED DOSE INHALER Routine 10/10/2021 0:05 EST DRY POWDERED OR METERED DOSE INHALER Routine 10/10/2021 0:05 EST NEBULIZER TX INTERMITTENT Routine 10/10/2021 0:05 EST NEBULIZER TX INTERMITTENT Routine 10/10/2021 0:05 EST COMPLETE BLOOD COUNT Routine 10/09/2021 18:26 EST SURGICAL PATHOLOGY Routine 10/09/2021 13 :19 EST GI bleeding Gastrointestinal hemorrhage with melena Decompensated hepatic cirrhosis (HCC-CMS) (HCC) Acute blood loss anemia Epigastric pain Chronic obstructive pulmonary disease, unspecified COPD type (HCC-CMS) (HCC) (HCC-CMS) Hypersplenism ECG REPORT - SCANNED 10/09/2021 13:00 EST PTT Routine 10/09/2021 6:56 EST PROTIME Routine 10/09/2021 6:56 EST COMPLETE BLOOD COUNT Routine 10/09/2021 6:56 EST COMPREHENSIVE METABOLIC PANEL (CMP) Routine 10/09/2021 6:56 EST DRY POWDERED OR METERED DOSE INHALER Routine 10/09/2021 0:05 EST DRY POWDERED OR METERED DOSE INHALER Routine 10/09/2021 0:05 EST NEBULIZER TX INTERMITTENT Routine 10/09/2021 0:05 EST NEBULIZER TX INTERMITTENT Routine 10/09/2021 0:05 EST COMPLETE BLOOD COUNT Routine 10/08/2021 23:[address] ANGIO ABDOMEN PELVIS STAT 10/08/2021 16:52 EST ZZCOVID-19 TEST [facility] PCR STAT 10/08/2021 16:15 EST COVID-19 TESTING STAT 10/08/2021 16:1 5 EST ZZHN INFLUENZA A AND B, RSV PCR STAT 10/08/2021 16:15 EST EKG 12-LEAD STAT 10/08/2021 16:02 EST PREPARE RED BLOOD CELLS Routine 10/08/2021 15:38 EST PREPARE RED BLOOD CELLS STAT 10/08/2021 15:38 EST HOLD BLUE TOP STAT 10/08/2021 14:41 EST COMPLETE BLOOD COUNT AND DIFFERENTIAL STAT 10/08/2021 14:41 EST BLOOD BANK HOLD Routine 10/08/2021 14:41 EST TYPE AND SCREEN Today 10/08/2021 14:41 EST BASIC METABOLIC PANEL (BMP) STAT 10/08/2021 14:41 EST documented in this encounter Results * ECG REPORT - SCANNED (10/21/2021 12:52 EST) 10/21/2021 12:5 2 EST us Scan 2 Bulker PROCEDURE/MINOR SURGICAL OR DERABLES Final Result * UPPER ENDOSCOPY PROCEDURE (10/17/2021 7:38 EST) Anatomical Region Laterality Modality Endoscopy Narrative 10/17/2021 7:38 EST Procedure Performed EGD Indications for Exam melena Procedure Technique A physical exam was performed. [...] esophagus and then carefully advanced to the Second part of duodenum. The Second part of duodenum was identified by visual landmarks. The scope was subsequently removed slowly while carefully examining the color, texture, anatomy, and integrity of the mucosa on withdrawal. The patient was subsequently transferred to the recovery area in satisfactory condition. Estimated Blood Loss: None Complications None Medications MAC Anesthesia See Anesthesia Record Findings Esophagus: normal Stomach: chicken wire appearance to mucosa. GEJ had a post-fundoplication appearance. No fresh or old blood. Pyloric channel ulcer noted extending into duodenal bulb that was clean based and denuded; no active bleeding, visible vessel noted Duodenum: large posterior duodenal sweep ulcer noted as seen on previous EGD. Again, ulcer large but clean-based without visible vessel or active bleed Diagnosis Esophagus: normal Stomach: chicken wire appearance to mucosa. GEJ had a post-fundoplication appearance. No fresh or old blood. Pyloric channel ulcer noted extending into duodenal bulb that was clean based and denuded; no active bleeding, visible vessel noted Duodenum: large posterior duodenal sweep ulcer noted as seen on previous EGD. Again, ulcer large but clean-based without visible vessel or active bleed Recommendations - continue PPI BID for at least three months to allow for ulcer healing. Can change to once daily dosing thereafter - transfuse to Hgb>7 - ok to advance diet as tolerated The??procedure??was??performed??by??Dr. Caesar Ling MD in the presence of Dr. Gaetano Campbell. The attending physician was in the room for the entire procedure. This electronic signature authenticates all electronic and/or handwritten documentation, including orders, generated by the signer during the episode of care contained in this record. 10/17/2021 07:38:39 AM By Gaetano Campbell MD us Gaetano Campbell MD GI PROCEDURE ORDERABLES Fi nal Result * (ABNORMAL) COMPLETE BLOOD COUNT (10/17/2021 5:39 EST) WBC 5.34 4.00 - 12.40 K/cmm 10/17/2021 6:20 [facility] RBC 3.28(L) 3.86 - 5.04 M/cmm 10/17/2021 6:20 [facility] Hemoglobin 9.1(L) 11.6 - 15.2 gm/dL 10/17/2021 6:20 [facility] HCT 28.9(L) 34.9 - 44.4 % 10/17/2021 6:20 [facility] MCV 88 81 - 98 fl 10/17/2021 6:20 [facility] MCH 27.7 26.7 - 33.3 pg 10/17/2021 6:20 [facility] MCHC 31.5(L) 32.1 - 35.9 gm/dL 10/17/2021 6:20 [facility] RDW-CV 16.7(H) <14.7 % 10/17/2021 6:20 [facility] RDW-SD 54.0(H) <50.4 fl 10/17/2021 6:20 [facility] PLT 181 141 - 377 K/cmm 10/17/2021 6:20 [facility] MPV 9.5 9.5 - 12.7 fl 10/17/2021 6:20 [facility] Blood VENOUS BLOOD / Unknown Venipuncture / Unknown 10/17/2021 5:39 EST 10/17/2021 6:08 EST us Lc Luis MD HEMATOLOGY & PF4 ORDERABLES F inal Result [facility] - [facility] [address] [place] [address] * (ABNORMAL) COMPREHENSIVE METABOLIC PANEL (CMP) (10/17/2021 5:39 EST) Sodium 137 136 - 145 mmol/L 10/17/2021 6:54 [facility] Potassium 3.5 3.5 - 5.0 mmol/L 10/17/2021 6:54 [facility] Chloride 100 96 - 110 mmol/L 10/17/2021 6:54 [facility] CO2 Total 30 22 - 32 mmol/L 10/17/2021 6:54 [facility] Glucose 89 70 - 100 mg/dL 10/17/2021 6:54 [facility] BUN 13 10 - 26 mg/dL 10/17/2021 6:54 [facility] Creatinine 0.84 0.52 - 1.04 mg/dL 10/17/2021 6:54 [facility] eGFR 75 >60 mL/min/1.7 3m2 10/17/2021 6:54 [facility] Total Protein 6.6 6.3 - 8.2 g/dL 10/17/2021 6:54 [facility] Albumin 3.1(L) 3.4 - 4.9 g/dL 10/17/2021 6:54 [facility] Alkaline Phosphatase 100 38 - 126 U/L 10/17/2021 6:54 [facility] AST 38 15 - 46 U/L 10/17/2021 6:54 [facility] ALT 16 <35 U/L 10/17/2021 6:54 [facility] Bilirubin, Total 0.8 <1.4 mg/dL 10/17/20 6:54 [facility] Calcium 8.6 8.5 - 10.5 mg/dL 10/17/2021 6:54 [facility] Albumin/Globulin Ratio 0.9(L) 1.0 - 2.5 10/17/2021 6:54 EST [facility] Anion Gap 7(L) 8 - 16 10/17/2021 6:54 EST [facility] Blood VENOUS BLOOD / Unknown Venipuncture / Unknown 10/17/2021 5:39 EST 10/17/2021 6:24 EST Lc Luis MD CHEMISTRY & BLOOD GAS ORDERAB LES Final Result [facility] [address] [place] [address] * PTT (10/17/2021 5:39 EST) PTT 29 26 - 37 secs 10/17/2021 6:30 EST [facility] Blood VENOUS BLOOD / Unknown Venipuncture / Unknown 10/17/2021 5:39 EST 10/17/2021 6:08 EST Val Morales MD HEMATOLOGY & PF4 ORDERABLES F inal Result Performing Organization Address City/[facility]/ZIP Co de Phone Number [facility] [address] [place] [address] * (ABNORMAL) PROTIME (10/17/2021 5:39 EST) I.N.R. 1.3(H) 0.9 - 1.1 Ratio 10/17/2021 6:30 EST [facility] Pro Time 15.3(H) 10.4 - 12.6 secs 10/17/2021 6:30 EST [facility] Blood VENOUS BLOOD / Unknown Venipuncture / Unknown 10/17/2021 5:39 EST 10/17/2021 6:08 EST Narrative [facility] - 10/17/2021 6:30 EST Moderate Intensity Coumadin INR = 2.0-3.0 Adjustments in anticoagulant therapy dose should be based on the INR and NOT on the Protime. Val Morales MD HEMATOLOGY & PF4 ORDERABLES F inal Result [facility] [address] [place] [address] * IR LIMITED U/S ABDOMEN (10/16/2021 9:22 EST) Anatomical Region Laterality Modality N/A X-Ray Angiograph y 10/16/2021 9:29 EST Impressions 10/16/2021 9:29 EST Successful limited ultrasound of abdomen. Narrative 10/16/2021 9:29 EST Ascites 10/16/21 Limited ultrasound of abdomen Limited ultrasound of abdomen shows scant fluid. ??Paracentesis not performed. CHENTE Guerrero performed the procedure. Procedure Note Bobby Greenberg MD - 10/16/2021 Ascites 10/16/21 Limited ultrasound of abdomen Limited ultrasound of abdomen shows scant fluid. Paracentesis notperformed. CHENTE Guerrero performed the procedure. IMPRESSION Successful limited ultrasound of abdomen. us Val Morales MD IMG IR ORDERABLES Final Resul t * (ABNORMAL) COMPLETE BLOOD COUNT (10/16/2021 5:39 EST) WBC 5.53 4.00 - 12.40 K/cmm 10/16/2021 6:16 [facility] RBC 2.75(L) 3.86 - 5.04 M/cmm 10/16/2021 6:16 [facility] Hemoglobin 7.8(L) 11.6 - 15.2 gm/dL 10/16/2021 6:16 [facility] HCT 24.1(L) 34.9 - 44.4 % 10/16/2021 6:16 [facility] MCV 88 81 - 98 fl 10/16/2021 6:16 [facility] MCH 28.4 26.7 - 33.3 pg 10/16/2021 6:16 [facility] MCHC 32.4 32.1 - 35.9 gm/dL 10/16/2021 6:16 [facility] RDW-CV 17.1(H) <14.7 % 10/16/2021 6:16 [facility] RDW-SD 53.4(H) <50.4 fl 10/16/2021 6:16 [facility] PLT 167 141 - 377 K/cmm 10/16/2021 6:16 [facility] MPV 9.1(L) 9.5 - 12.7 fl 10/16/2021 6:16 [facility] Blood VENOUS BLOOD / Unknown Venipuncture / Unknown 10/16/2021 5:39 EST 10/16/2021 6:06 EST us Lc Luis MD HEMATOLOGY & PF4 ORDERABLES F inal Result Performing Organization Address City/State/[facility] Co de Phone Number [facility] [address] [place] [address] * (ABNORMAL) COMPREHENSIVE METABOLIC PANEL (CMP) (10/16/2021 5:39 EST) Sodium 135(L) 136 - 145 mmol/L 10/16/2021 6:42 [facility] Potassium 3.8 3.5 - 5.0 mmol/L 10/16/2021 6:42 [facility] Chloride 101 96 - 110 mmol/L 10/16/2021 6:42 [facility] CO2 Total 31 22 - 32 mmol/L 10/16/2021 6:42 [facility] Glucose 103(H) 70 - 100 mg/dL 10/16/2021 6:42 [facility] BUN 11 10 - 26 mg/dL 10/16/2021 6:42 [facility] Creatinine 0.84 0.52 - 1.04 mg/dL 10/16/2021 6:42 [facility] eGFR 75 >60 mL/min/1.7 3m2 10/16/2021 6:42 [facility] Total Protein 5.7(L) 6.3 - 8.2 g/dL 10/16/2021 6:42 [facility] Albumin 2.6(L) 3.4 - 4.9 g/dL 10/16/2021 6:42 [facility] Alkaline Phosphatase 94 38 - 126 U/L 10/16/2021 6:42 [facility] AST 33 15 - 46 U/L 10/16/2021 6:42 [facility] ALT 14 <35 U/L 10/16/2021 6:42 [facility] Bilirubin, Total 0.6 <1.4 mg/dL 10/16/20 6:42 [facility] Calcium 8.0(L) 8.5 - 10.5 mg/dL 10/16/2021 6:42 [facility] Albumin/Globulin Ratio 0.8(L) 1.0 - 2.5 10/16/2021 6:42 [facility] Anion Gap 3(L) 8 - 16 10/16/2021 6:42 [facility] Blood VENOUS BLOOD / Unknown Venipuncture / Unknown 10/16/2021 5:39 EST 10/16/2021 6:07 EST us Lc Luis MD CHEMISTRY & BLOOD GAS ORDERAB LES Final Result Performing Organization Address City/[facility]/ZIP Co de Phone Number [facility] [address] [place] [address] * PTT (10/16/2021 5:39 EST) PTT 28 26 - 37 secs 10/16/2021 6:36 EST [facility] Blood VENOUS BLOOD / Unknown Venipuncture / Unknown 10/16/2021 5:39 EST 10/16/2021 6:06 EST us Val Morales MD HEMATOLOGY & PF4 ORDERABLES F inal Result Performing Organization Address City/[facility]/ZIP Co de Phone Number [facility] [address] [place] [address] * (ABNORMAL) PROTIME (10/16/2021 5:39 EST) I.N.R. 1.3(H) 0.9 - 1.1 Ratio 10/16/2021 6:36 EST [facility] Pro Time 15.4(H) 10.4 - 12.6 secs 10/16/2021 6:36 EST [facility] Blood VENOUS BLOOD / Unknown Venipuncture / Unknown 10/16/2021 5:39 EST 10/16/2021 6:06 EST Narrative [facility] - 10/16/2021 6:36 EST Moderate Intensity Coumadin INR = 2.0-3.0 Adjustments in anticoagulant therapy dose should be based on the INR and NOT on the Protime. Val Morales MD HEMATOLOGY & PF4 ORDERABLES F inal Result Performing Organization Address City/[facility]/ZIP Co de Phone Number [facility] [address] [place] [address] * COVID-19 TEST [facility] PCR (10/15/2021 10:51 EST) Swab ENTIRE NASOPHARYNX / Unknown Swab / Unknown 10/15/2021 10:51 EST 10/15/2021 10:58 EST Val Morales MD MICROBIOLOGY - GENERAL ORDERA BLES Final Result Performing Organization Address [facility]/ZIP Co de Phone Number [facility] [address] [place] [address] * COVID-19 TESTING (10/15/2021 10:51 EST) COVID-19 rt-PCR Result Negative Negative 10/15/2021 15:53 EST [facility] Comment: This test has not [...] history, and epidemiological information. Performed on the Ring[employer] Fusion instrument Performing Lab [place] [facility] 10/15/2021 15:53 EST [facility] Swab ENTIRE NASOPHARYNX / Unknown Swab / Unknown 10/15/2021 10:51 EST 10/15/2021 10:58 EST Val Morales MD MICROBIOLOGY - GENERAL ORDERA BLES Final Result Performing Organization Address [facility] Co de Phone Number [facility] [address] [place] [address] * INFLUENZA A AND B,RSV PCR (10/15/2021 10:51 EST) FLU A RNA Result (FLARES) Negative Negative 10/15/2021 15:53 EST [facility] FLU B RNA Result (FLBRES) Negative Negative 10/15/2021 15:53 [facility] RSV RNA Result (RSVRES) Negative Negative 10/15/2021 15:53 EST [facility] Swab ENTIRE NASOPHARYNX / Unknown Swab / Unknown 10/15/2021 10:51 EST 10/15/2021 10:58 EST Val Morales MD MICROBIOLOGY - GENERAL ORDERA BLES Final Result Performing Organization Address City/[facility]/ZIP Co de Phone Number [facility] [address] [place] [address] * EXPANDED RESPIRATORY VIRAL PANEL, PCR (DOES NOT INCLUDE INFLUENZA OR RSV) (10/15/2021 10:51 EST) Paraflu Type 1 Rslt (PF1RES) Negative Negative 10/15/2021 15:53 [facility] Paraflu Type 2 Rslt (PF2RES) Negative Negative 10/15/2021 15:53 [facility] Paraflu Type 3 Rslt (PF3RES) Negative Negative 10/15/2021 15:53 [facility] Paraflu Type 4 Rslt Negative Negative 10/15 15:53 [facility] Rhinovirus RNA Rslt (RVRES) Negative Negative 10/15/2021 15:53 [facility] Metapneumovirus RNA Rslt (HMVRES) Negative Negative 10/15/2021 15:53 [facility] Adenovirus DNA Rslt (ADVRES) Negative Negative 10/15/2021 15:53 [facility] Swab ENTIRE NASOPHARYNX / Unknown Swab / Unknown 10/15/2021 10:51 EST 10/15/2021 10:58 EST Val Morales MD MICROBIOLOGY - GENERAL ORDERA BLES Final Result [facility] [address] [place] [address] * (ABNORMAL) COMPLETE BLOOD COUNT (10/15/2021 5:34 EST) WBC 6.29 4.00 - 12.40 K/cmm 10/15/2021 6:00 [facility] RBC 2.81(L) 3.86 - 5.04 M/cmm 10/15/2021 6:00 [facility] Hemoglobin 8.0(L) 11.6 - 15.2 gm/dL 10/15/2021 6:00 [facility] HCT 24.1(L) 34.9 - 44.4 % 10/15/2021 6:00 [facility] MCV 86 81 - 98 fl 10/15/2021 6:00 [facility] MCH 28.5 26.7 - 33.3 pg 10/15/2021 6:00 [facility] MCHC 33.2 32.1 - 35.9 gm/dL 10/15/2021 6:00 [facility] RDW-CV 16.9(H) <14.7 % 10/15/2021 6:00 [facility] RDW-SD 52.0(H) <50.4 fl 10/15/2021 6:00 [facility] PLT 196 141 - 377 K/cmm 10/15/2021 6:00 [facility] MPV 9.1(L) 9.5 - 12.7 fl 10/15/2021 6:00 [facility] Blood VENOUS BLOOD / Unknown Venipuncture / Unknown 10/15/2021 5:34 EST 10/15/2021 5:50 EST us Lc Luis MD HEMATOLOGY & PF4 ORDERABLES F inal Result [facility] [address] [place] [address] * (ABNORMAL) COMPREHENSIVE METABOLIC PANEL (CMP) (10/15/2021 5:34 EST) Sodium 135(L) 136 - 145 mmol/L 10/15/2021 6:18 [facility] Potassium 3.9 3.5 - 5.0 mmol/L 10/15/2021 6:18 [facility] Chloride 101 96 - 110 mmol/L 10/15/2021 6:18 [facility] CO2 Total 32 22 - 32 mmol/L 10/15/2021 6:18 [facility] Glucose 113(H) 70 - 100 mg/dL 10/15/2021 6:18 [facility] BUN 10 10 - 26 mg/dL 10/15/2021 6:18 [facility] Creatinine 0.87 0.52 - 1.04 mg/dL 10/15/2021 6:18 [facility] eGFR 72 >60 mL/min/1.7 3m2 10/15/2021 6:18 [facility] Total Protein 5.7(L) 6.3 - 8.2 g/dL 10/15/2021 6:18 [facility] Albumin 2.5(L) 3.4 - 4.9 g/dL 10/15/2021 6:18 [facility] Alkaline Phosphatase 103 38 - 126 U/L 10/15/2021 6:18 [facility] AST 28 15 - 46 U/L 10/15/2021 6:18 [facility] ALT 13 <35 U/L 10/15/2021 6:18 [facility] Bilirubin, Total 0.7 <1.4 mg/dL 10/15/20 6:18 [facility] Calcium 8.2(L) 8.5 - 10.5 mg/dL 10/15/2021 6:18 [facility] Albumin/Globulin Ratio 0.8(L) 1.0 - 2.5 10/15/2021 6:18 [facility] Anion Gap 2(L) 8 - 16 10/15/2021 6:18 [facility] Blood VENOUS BLOOD / Unknown Venipuncture / Unknown 10/15/2021 5:34 EST 10/15/2021 5:50 EST us Lc Luis MD CHEMISTRY & BLOOD GAS ORDERAB LES Final Result Performing Organization Address City/[facility]/ZIP Co de Phone Number [facility] [address] [place] [address] * PTT (10/15/2021 5:34 EST) PTT 28 26 - 37 secs 10/15/2021 6:14 [facility] Blood VENOUS BLOOD / Unknown Venipuncture / Unknown 10/15/2021 5:34 EST 10/15/2021 5:50 EST Val Morales MD HEMATOLOGY & PF4 ORDERABLES F inal Result Performing Organization Address City/[facility]/ZIP Co de Phone Number [facility] [address] [place] [address] * (ABNORMAL) PROTIME (10/15/2021 5:34 EST) Pathologist [facility] I.N.R. 1.3(H) 0.9 - 1.1 Ratio 10/15/2021 6:14 [facility] Pro Time 15.2(H) 10.4 - 12.6 secs 10/15/2021 6:14 [facility] Blood VENOUS BLOOD / Unknown Venipuncture / Unknown 10/15/2021 5:34 EST 10/15/2021 5:50 EST [facility] - 10/15/2021 6:14 EST Moderate Intensity Coumadin INR = 2.0-3.0 Adjustments in anticoagulant therapy dose should be based on the INR and NOT on the Protime. us Val Morales MD HEMATOLOGY & PF4 ORDERABLES F inal Result [facility] [address] [place] [address] * (ABNORMAL) COMPLETE BLOOD COUNT (10/14/2021 19:03 EST) [facility] WBC 6.19 4.00 - 12.40 K/cmm 10/14/2021 19:18 [facility] RBC 3.03(L) 3.86 - 5.04 M/cmm 10/14/2021 19:18 [facility] Hemoglobin 8.2(L) 11.6 - 15.2 gm/dL 10/14/2021 19:18 [facility] HCT 26.1(L) 34.9 - 44.4 % 10/14/2021 19:18 [facility] MCV 86 81 - 98 fl 10/14/2021 19:18 [facility] MCH 27.1 26.7 - 33.3 pg 10/14/2021 19:18 [facility] MCHC 31.4(L) 32.1 - 35.9 gm/dL 10/14/2021 19:18 [facility] RDW-CV 17.1(H) <14.7 % 10/14/2021 19:18 EST [facility] RDW-SD 52.0(H) <50.4 fl 10/14/2021 19:18 EST [facility] PLT 202 141 - 377 K/cmm 10/14/2021 19:18 EST [facility] MPV 9.2(L) 9.5 - 12.7 fl 10/14/2021 19:18 EST [facility] Blood VENOUS BLOOD / Unknown Venipuncture / Unknown 10/14/2021 19:03 EST 10/14/2021 19:09 EST Val Morales MD HEMATOLOGY & PF4 ORDERABLES F inal Result [facility] [address] [place] [address] * LACTIC ACID (10/14/2021 19:02 EST) Lactic Acid 1.8 <=2.0 mmol/L 10/14/2021 19:24 EST [facility] Blood VENOUS BLOOD / Unknown Venipuncture / Unknown 10/14/2021 19:02 EST 10/14/2021 19:09 EST us Oni Granger MD CHEMISTRY & BLOOD GAS ORDERABL ES Final Result [facility] [address] [place] [address] * TRANSFUSE RED BLOOD CELLS (10/14/2021 15:24 EST) Blood us Val Morales MD NURSING TREATMENT - BLOOD ADM INISTRATION Final Result * TRANSFUSE RED BLOOD CELLS (10/14/2021 15:24 EST) Blood us Val Morales MD NURSING TREATMENT - BLOOD ADM INISTRATION Final Result * PREPARE RED BLOOD CELLS (10/14/2021 11:30 EST) Product Code [id number] [facility] Donor Number [id number] U [facility] Unit ABO O [facility] Unit Rh POS [facility] Unit Status TR^Transfuse [facility] Product Expiration Date [id number] [facility] Unit Blood Type Code 5100 [facility] Volume 275 [facility] Coding System [id number] [facility] Blood 10/14/2021 11:3 0 EST Val Morales MD BLOOD BANK ORDERABLES Final R esult Performing Organization Address City/State/[facility] Co de Phone Number [facility] [address] [facility] [place] [address] * (ABNORMAL) COMPLETE BLOOD COUNT (10/14/2021 7:23 EST) WBC 5.27 4.00 - 12.40 K/cmm 10/14/2021 8:36 [facility] RBC 2.62(L) 3.86 - 5.04 M/cmm 10/14/2021 8:36 [facility] Hemoglobin 7.1(L) 11.6 - 15.2 gm/dL 10/14/2021 8:36 [facility] HCT 22.2(L) 34.9 - 44.4 % 10/14/2021 8:36 [facility] MCV 85 81 - 98 fl 10/14/2021 8:36 [facility] MCH 27.1 26.7 - 33.3 pg 10/14/2021 8:36 [facility] MCHC 32.0(L) 32.1 - 35.9 gm/dL 10/14/2021 8:36 [facility] RDW-CV 17.1(H) <14.7 % 10/14/2021 8:36 [facility] RDW-SD 51.4(H) <50.4 fl 10/14/2021 8:36 EST [facility] PLT 196 141 - 377 K/cmm 10/14/2021 8:36 [facility] MPV 9.2(L) 9.5 - 12.7 fl 10/14/2021 8:36 [facility] Blood VENOUS BLOOD / Unknown Venipuncture / Unknown 10/14/2021 7:23 EST 10/14/2021 8:27 EST Lc Luis MD HEMATOLOGY & PF4 ORDERABLES F inal Result Performing Organization Address City/[facility]/ZIP Co de Phone Number [facility] [address] [place] [address] * PTT (10/14/2021 7:23 EST) PTT 29 26 - 37 secs 10/14/2021 9:01 [facility] Blood VENOUS BLOOD / Unknown Venipuncture / Unknown 10/14/2021 7:23 EST 10/14/2021 8:26 EST us Val Morales MD HEMATOLOGY & PF4 ORDERABLES F inal Result Performing Organization Address City/[facility] Co de Phone Number [facility] [address] [place] [address] * (ABNORMAL) PROTIME (10/14/2021 7:23 EST) I.N.R. 1.3(H) 0.9 - 1.1 Ratio 10/14/2021 9:01 [facility] Pro Time 15.0(H) 10.4 - 12.6 secs 10/14/2021 9:01 [facility] Blood VENOUS BLOOD / Unknown Venipuncture / Unknown 10/14/2021 7:23 EST 10/14/2021 8:26 EST Narrative [facility] - 10/14/2021 9:01 EST Moderate Intensity Coumadin INR = 2.0-3.0 Adjustments in anticoagulant therapy dose should be based on the INR and NOT on the Protime. us Val Morales MD HEMATOLOGY & PF4 ORDERABLES F inal Result [facility] [address] [place] [address] * (ABNORMAL) COMPREHENSIVE METABOLIC PANEL (CMP) (10/14/2021 7:22 EST) Sodium 135(L) 136 - 145 mmol/L 10/14/2021 9:23 [facility] Potassium 4.1 3.5 - 5.0 mmol/L 10/14/2021 9:23 [facility] Chloride 101 96 - 110 mmol/L 10/14/2021 9:23 [facility] CO2 Total 31 22 - 32 mmol/L 10/14/2021 9:23 [facility] Glucose 99 70 - 100 mg/dL 10/14/2021 9:23 [facility] BUN 9(L) 10 - 26 mg/dL 10/14/2021 9:23 [facility] Creatinine 0.81 0.52 - 1.04 mg/dL 10/14/2021 9:23 [facility] eGFR 79 >60 mL/min/1.7 3m2 10/14/2021 9:23 [facility] Total Protein 5.8(L) 6.3 - 8.2 g/dL 10/14/2021 9:23 [facility] Albumin 2.6(L) 3.4 - 4.9 g/dL 10/14/2021 9:23 [facility] Alkaline Phosphatase 93 38 - 126 U/L 10/14/2021 9:23 [facility] AST 28 15 - 46 U/L 10/14/2021 9:23 [facility] ALT 12 <35 U/L 10/14/2021 9:23 [facility] Bilirubin, Total 0.8 <1.4 mg/dL 10/14/20 9:23 [facility] Calcium 8.1(L) 8.5 - 10.5 mg/dL 10/14/2021 9:23 [facility] Albumin/Globulin Ratio 0.8(L) 1.0 - 2.5 10/14/2021 9:23 [facility] Anion Gap 3(L) 8 - 16 10/14/2021 9:23 [facility] Blood VENOUS BLOOD / Unknown Venipuncture / Unknown 10/14/2021 7:22 EST 10/14/2021 8:29 EST us Lc Luis MD CHEMISTRY & BLOOD GAS ORDERAB LES Final Result [facility] [address] [place] [address] * (ABNORMAL) COMPLETE BLOOD COUNT (10/13/2021 17:44 EST) WBC 7.18 4.00 - 12.40 K/cmm 10/13/2021 18:07 [facility] RBC 2.86(L) 3.86 - 5.04 M/cmm 10/13/2021 18:07 [facility] Hemoglobin 7.8(L) 11.6 - 15.2 gm/dL 10/13/2021 18:07 [facility] HCT 24.0(L) 34.9 - 44.4 % 10/13/2021 18:07 [facility] MCV 84 81 - 98 fl 10/13/2021 18:07 [facility] MCH 27.3 26.7 - 33.3 pg 10/13/2021 18:07 [facility] MCHC 32.5 32.1 - 35.9 gm/dL 10/13/2021 18:07 [facility] RDW-CV 17.0(H) <14.7 % 10/13/2021 18:07 [facility] RDW-SD 50.4(H) <50.4 fl 10/13/2021 18:07 [facility] PLT 213 141 - 377 K/cmm 10/13/2021 18:07 EST [facility] MPV 9.0(L) 9.5 - 12.7 fl 10/13/2021 18:07 EST [facility] Blood VENOUS BLOOD / Unknown Venipuncture / Unknown 10/13/2021 17:44 EST 10/13/2021 17:49 EST Val Morales MD HEMATOLOGY & PF4 ORDERABLES F inal Result Performing Organization Address City/[facility] Co de Phone Number [facility] [address] [place] [address] * TYPE AND SCREEN (10/13/2021 8:14 EST) ABO O 10/13/2021 9:12 EST [facility] Rh Factor Positive 10/13/2021 9:12 EST [facility] Antibody Screen Negative 10/13/2021 9:12 EST [facility] Specimen Expires: 10/16/2021 @ 23:59 10/13/2021 9:12 EST [facility] Blood VENOUS BLOOD / Unknown Venipuncture / Unknown 10/13/2021 8:14 EST 10/13/2021 8:30 EST Val Morales MD BLOOD BANK TESTS Edited Resul t - Final Performing Organization Address City/[facility] Co de Phone Number [facility] [address] [place] [address] * PREPARE RED BLOOD CELLS (10/13/2021 7:42 EST) Product Code [id number] [facility] Donor Number [id number] U [facility] B[facility] Unit ABO O [facility] Unit Rh POS [facility] Unit Status TR^Transfuse [facility] Product Expiration Date [id number] [facility] Unit Blood Type Code 5100 [facility] Volume 282 [facility] Coding System [id number] [facility] B[facility]OD [facility] Blood 10/13/2021 7:42 EST us Val Morales MD BLOOD BANK ORDERABLES Final R esult Performing Organization Address City/[facility]/ZIP Co de Phone Number [facility] [address] [place] [address] * FIBRINOGEN (10/13/2021 6:34 EST) Fibrinogen 254 171 - 384 mg/dL 10/13/2021 8:34 [facility] Blood VENOUS BLOOD / Unknown Venipuncture / Unknown 10/13/2021 6:34 EST 10/13/2021 6:50 EST us Josefina Beckford MD MPH HEMATOLOGY & PF4 ORDER YANN Final Result Performing Organization Address City/[facility] de Phone Number [facility] [address] [place] [address] * (ABNORMAL) COMPLETE BLOOD COUNT (10/13/2021 6:34 EST) WBC 7.71 4.00 - 12.40 K/cmm 10/13/2021 7:16 [facility] RBC 2.40(L) 3.86 - 5.04 M/cmm 10/13/2021 7:16 [facility] Hemoglobin 6.8(LL) 11.6 - 15.2 gm/dL 10/13/2021 7:16 [facility] HCT 20.4(LL) 34.9 - 44.4 % 10/13/2021 7:16 [facility] MCV 85 81 - 98 fl 10/13/2021 7:16 [facility] MCH 28.3 26.7 - 33.3 pg 10/13/2021 7:16 [facility] MCHC 33.3 32.1 - 35.9 gm/dL 10/13/2021 7:16 [facility] RDW-CV 16.8(H) <14.7 % 10/13/2021 7:16 [facility] RDW-SD 50.8(H) <50.4 fl 10/13/2021 7:16 [facility] PLT 188 141 - 377 K/cmm 10/13/2021 7:16 [facility] MPV 9.4(L) 9.5 - 12.7 fl 10/13/2021 7:16 [facility] Blood VENOUS BLOOD / Unknown Venipuncture / Unknown 10/13/2021 6:34 EST 10/13/2021 6:52 EST us Lc Luis MD HEMATOLOGY & PF4 ORDERABLES F inal Result [facility] [address] [place] [address] * (ABNORMAL) COMPREHENSIVE METABOLIC PANEL (CMP) (10/13/2021 6:34 EST) Sodium 131(L) 136 - 145 mmol/L 10/13/2021 7:32 [facility] Potassium 3.9 3.5 - 5.0 mmol/L 10/13/2021 7:32 [facility] Chloride 99 96 - 110 mmol/L 10/13/2021 7:32 [facility] CO2 Total 26 22 - 32 mmol/L 10/13/2021 7:32 [facility] Glucose 108(H) 70 - 100 mg/dL 10/13/2021 7:32 [facility] BUN 9(L) 10 - 26 mg/dL 10/13/2021 7:32 [facility] Creatinine 0.70 0.52 - 1.04 mg/dL 10/13/2021 7:32 [facility] eGFR 94 >60 mL/min/1.7 3m2 10/13/2021 7:32 [facility] Total Protein 6.2(L) 6.3 - 8.2 g/dL 10/13/2021 7:32 [facility] Albumin 3.0(L) 3.4 - 4.9 g/dL 10/13/2021 7:32 [facility] Alkaline Phosphatase 112 38 - 126 U/L 10/13/2021 7:32 [facility] AST 30 15 - 46 U/L 10/13/2021 7:32 [facility] ALT 14 <35 U/L 10/13/2021 7:32 [facility] Bilirubin, Total 0.7 <1.4 mg/dL 10/13/20 7:32 [facility] Calcium 8.1(L) 8.5 - 10.5 mg/dL 10/13/2021 7:32 [facility] Albumin/Globulin Ratio 0.9(L) 1.0 - 2.5 10/13/2021 7:32 [facility] Anion Gap 6(L) 8 - 16 10/13/2021 7:32 [facility] Blood VENOUS BLOOD / Unknown Venipuncture / Unknown 10/13/2021 6:34 EST 10/13/2021 6:54 EST us Lc Luis MD CHEMISTRY & BLOOD GAS ORDERAB LES Final Result Performing Organization Address City/[facility]/ZIP Co de Phone Number [facility] [address] [place] [address] * PTT (10/13/2021 6:34 EST) Pathologist [facility] PTT 28 26 - 37 secs 10/13/2021 7:08 EST [facility] Blood VENOUS BLOOD / Unknown Venipuncture / Unknown 10/13/2021 6:34 EST 10/13/2021 6:50 EST us Val Morales MD HEMATOLOGY & PF4 ORDERABLES F inal Result Performing Organization Address City/[facility]/ZIP Co de Phone Number [facility] [address] [place] [address] * (ABNORMAL) PROTIME (10/13/2021 6:34 EST) I.N.R. 1.3(H) 0.9 - 1.1 Ratio 10/13/2021 7:08 EST [facility] Pro Time 15.5(H) 10.4 - 12.6 secs 10/13/2021 7:08 EST [facility] Blood VENOUS BLOOD / Unknown Venipuncture / Unknown 10/13/2021 6:34 EST 10/13/2021 6:50 EST Narrative [facility] - 10/13/2021 7:08 EST Moderate Intensity Coumadin INR = 2.0-3.0 Adjustments in anticoagulant therapy dose should be based on the INR and NOT on the Protime. us Val Morales MD HEMATOLOGY & PF4 ORDERABLES F inal Result Performing Organization Address City/State/[facility] Co de Phone Number [facility] [address] [place] [address] * UPPER ENDOSCOPY PROCEDURE (10/12/2021 16:52 EST) Anatomical Region Laterality Modality Endoscopy Narrative 10/12/2021 16:52 EST Procedure Performed EGD Indications for Exam Melena Procedure Technique A physical exam was performed. [...] esophagus and then carefully advanced to the Second part of duodenum. The Second part of duodenum was identified by visual landmarks. The scope was subsequently removed slowly while carefully examining the color, texture, anatomy, and integrity of the mucosa on withdrawal. The patient was subsequently transferred to the recovery area in satisfactory condition. Estimated Blood Loss: None Complications None Medications MAC Anesthesia See Anesthesia Record Findings No evidence of active bleeding or old blood. Esophagus: normal mucosa, no varices Stomach: mild portal gastropathy. Distorted pylorus. Otherwise normal mucosa. Random cold forceps biopsied for H pylori. Duodenum: large non-bleeding clean-based ulcer without bleeding stigmata in duodenal bulb extending into sweep. Normal mucosa in examined portion of duodenum. Diagnosis No evidence of active bleeding or old blood. Esophagus: normal mucosa, no varices Stomach: mild portal gastropathy. Distorted pylorus. Otherwise normal mucosa. Random cold forceps biopsied for H pylori. Duodenum: large non-bleeding clean-based ulcer without bleeding stigmata in duodenal bulb extending into sweep. Normal mucosa in examined portion of duodenum. Recommendations - f/u biopsies - IV PPI BID while admitted, discharge on PO PPI BID for at least 8 weeks, daily thereafter indefinitely - avoid NSAIDs - advance diet as tolerated The??procedure??was??performed??by??Dr. Sohail Winkler M.D. in the presence of Dr. Gaetano Campbell. The attending physician was in the room for the entire procedure. This electronic signature authenticates all electronic and/or handwritten documentation, including orders, generated by the signer during the episode of care contained in this record. 10/12/2021 04:52:33 PM By Gaetano Campbell MD Gaetano Campbell MD GI PROCEDURE ORDERABLES Fi nal Result * MAGNESIUM (10/12/2021 7:39 EST) Magnesium 1.9 1.7 - 2.8 mg/dL 10/12/2021 11:00 EST [facility] Blood VENOUS BLOOD / Unknown Venipuncture / Unknown 10/12/2021 7:39 EST 10/12/2021 8:45 EST Ruma Vallejo MD CHEMISTRY & BLOOD GAS DEMI CARDENAS Final Result [facility] [address] [place] [address] * (ABNORMAL) COMPLETE BLOOD COUNT (10/12/2021 7:39 EST) WBC 8.72 4.00 - 12.40 K/cmm 10/12/2021 8:52 EST [facility] RBC 2.63(L) 3.86 - 5.04 M/cmm 10/12/2021 8:52 [facility] Hemoglobin 7.3(L) 11.6 - 15.2 gm/dL 10/12/2021 8:52 [facility] HCT 22.6(L) 34.9 - 44.4 % 10/12/2021 8:52 [facility] MCV 86 81 - 98 fl 10/12/2021 8:52 [facility] MCH 27.8 26.7 - 33.3 pg 10/12/2021 8:52 [facility] MCHC 32.3 32.1 - 35.9 gm/dL 10/12/2021 8:52 [facility] RDW-CV 16.9(H) <14.7 % 10/12/2021 8:52 [facility] RDW-SD 50.4(H) <50.4 fl 10/12/2021 8:52 [facility] PLT 178 141 - 377 K/cmm 10/12/2021 8:52 [facility] MPV 9.5 9.5 - 12.7 fl 10/12/2021 8:52 [facility] Blood VENOUS BLOOD / Unknown Venipuncture / Unknown 10/12/2021 7:39 EST 10/12/2021 8:45 EST us Lc Luis MD HEMATOLOGY & PF4 ORDERABLES F inal Result [facility] [address] [place] [address] * (ABNORMAL) COMPREHENSIVE METABOLIC PANEL (CMP) (10/12/2021 7:39 EST) Sodium 132(L) 136 - 145 mmol/L 10/12/2021 9:26 [facility] Potassium 3.8 3.5 - 5.0 mmol/L 10/12/2021 9:26 [facility] Chloride 101 96 - 110 mmol/L 10/12/2021 9:26 [facility] CO2 Total 25 22 - 32 mmol/L 10/12/2021 9:26 [facility] Glucose 106(H) 70 - 100 mg/dL 10/12/2021 9:26 [facility] BUN 8(L) 10 - 26 mg/dL 10/12/2021 9:26 [facility] Creatinine 0.74 0.52 - 1.04 mg/dL 10/12/2021 9:26 [facility] eGFR 88 >60 mL/min/1.7 3m2 10/12/2021 9:26 [facility] Total Protein 6.2(L) 6.3 - 8.2 g/dL 10/12/2021 9:26 [facility] Albumin 3.1(L) 3.4 - 4.9 g/dL 10/12/2021 9:26 [facility] Alkaline Phosphatase 119 38 - 126 U/L 10/12/2021 9:26 [facility] AST 35 15 - 46 U/L 10/12/2021 9:26 [facility] ALT 15 <35 U/L 10/12/2021 9:26 [facility] Bilirubin, Total 0.9 <1.4 mg/dL 10/12/20 9:26 [facility] Calcium 8.1(L) 8.5 - 10.5 mg/dL 10/12/2021 9:26 [facility] Albumin/Globulin Ratio 1.0 1.0 - 2.5 10/12/2021 9:26 [facility] Anion Gap 6(L) 8 - 16 10/12/2021 9:26 [facility] Blood VENOUS BLOOD / Unknown Venipuncture / Unknown 10/12/2021 7:39 EST 10/12/2021 8:45 EST us Lc Luis MD CHEMISTRY & BLOOD GAS ORDERAB LES Final Result [facility] [address] [place] [address] * PTT (10/12/2021 7:39 EST) PTT 30 26 - 37 secs 10/12/2021 9:15 EST [facility] Blood VENOUS BLOOD / Unknown Venipuncture / Unknown 10/12/2021 7:39 EST 10/12/2021 8:39 EST Val Morales MD HEMATOLOGY & PF4 ORDERABLES F inal Result Performing Organization Address [facility] de Phone Number [facility] [address] [place] [address] * (ABNORMAL) PROTIME (10/12/2021 7:39 EST) Pathologist [facility] I.N.R. 1.4(H) 0.9 - 1.1 Ratio 10/12/2021 9:15 [facility] Pro Time 16.1(H) 10.4 - 12.6 secs 10/12/2021 9:15 [facility] Blood VENOUS BLOOD / Unknown Venipuncture / Unknown 10/12/2021 7:39 EST 10/12/2021 8:39 EST Narrative [facility] - 10/12/2021 9:15 EST Moderate Intensity Coumadin INR = 2.0-3.0 Adjustments in anticoagulant therapy dose should be based on the INR and NOT on the Protime. Val Morales MD HEMATOLOGY & PF4 ORDERABLES F inal Result Performing Organization Address City/[facility] Co de Phone Number [facility] [address] [place] [address] * (ABNORMAL) COMPLETE BLOOD COUNT (10/11/2021 7:40 EST) WBC 10.64 4.00 - 12.40 K/cmm 10/11/2021 7:56 [facility] RBC 2.82(L) 3.86 - 5.04 M/cmm 10/11/2021 7:56 [facility] Hemoglobin 7.7(L) 11.6 - 15.2 gm/dL 10/11/2021 7:56 [facility] HCT 24.3(L) 34.9 - 44.4 % 10/11/2021 7:56 [facility] MCV 86 81 - 98 fl 10/11/2021 7:56 [facility] MCH 27.3 26.7 - 33.3 pg 10/11/2021 7:56 [facility] MCHC 31.7(L) 32.1 - 35.9 gm/dL 10/11/2021 7:56 [facility] RDW-CV 16.5(H) <14.7 % 10/11/2021 7:56 [facility] RDW-SD 50.3 <50.4 fl 10/11/2021 7:56 [facility] PLT 164 141 - 377 K/cmm 10/11/2021 7:56 [facility] MPV 8.9(L) 9.5 - 12.7 fl 10/11/2021 7:56 [facility] Blood VENOUS BLOOD / Unknown Venipuncture / Unknown 10/11/2021 7:40 EST 10/11/2021 7:50 EST us Lc Luis MD HEMATOLOGY & PF4 ORDERABLES F inal Result [facility] [address] [place] [address] * (ABNORMAL) COMPREHENSIVE METABOLIC PANEL (CMP) (10/11/2021 7:40 EST) Sodium 131(L) 136 - 145 mmol/L 10/11/2021 8:33 [facility] Potassium 3.6 3.5 - 5.0 mmol/L 10/11/2021 8:33 [facility] Chloride 103 96 - 110 mmol/L 10/11/2021 8:33 [facility] CO2 Total 23 22 - 32 mmol/L 10/11/2021 8:33 [facility] Glucose 124(H) 70 - 100 mg/dL 10/11/2021 8:33 [facility] BUN 9(L) 10 - 26 mg/dL 10/11/2021 8:33 [facility] Creatinine 0.74 0.52 - 1.04 mg/dL 10/11/2021 8:33 [facility] eGFR 88 >60 mL/min/1.7 3m2 10/11/2021 8:33 [facility] Total Protein 6.1(L) 6.3 - 8.2 g/dL 10/11/2021 8:33 [facility] Albumin 3.0(L) 3.4 - 4.9 g/dL 10/11/2021 8:33 [facility] Alkaline Phosphatase 118 38 - 126 U/L 10/11/2021 8:33 [facility] AST 37 15 - 46 U/L 10/11/2021 8:33 [facility] ALT 17 <35 U/L 10/11/2021 8:33 [facility] Bilirubin, Total 0.9 <1.4 mg/dL 10/11/20 8:33 [facility] Calcium 8.0(L) 8.5 - 10.5 mg/dL 10/11/2021 8:33 [facility] Albumin/Globulin Ratio 1.0 1.0 - 2.5 10/11/2021 8:33 [facility] Anion Gap 5(L) 8 - 16 10/11/2021 8:33 [facility] Blood VENOUS BLOOD / Unknown Venipuncture / Unknown 10/11/2021 7:40 EST 10/11/2021 7:54 EST us Lc Luis MD CHEMISTRY & BLOOD GAS ORDERAB LES Final Result [facility] [address] [place] [address] * PTT (10/11/2021 7:40 EST) PTT 27 26 - 37 secs 10/11/2021 8:41 [facility] Blood VENOUS BLOOD / Unknown Venipuncture / Unknown 10/11/2021 7:40 EST 10/11/2021 8:08 EST Val Morales MD HEMATOLOGY & PF4 ORDERABLES F inal Result Performing Organization Address [facility] de Phone Number [facility] [address] [place] [address] * (ABNORMAL) PROTIME (10/11/2021 7:40 EST) I.N.R. 1.4(H) 0.9 - 1.1 Ratio 10/11/2021 8:41 EST [facility] Pro Time 16.1(H) 10.4 - 12.6 secs 10/11/2021 8:41 EST [facility] Blood VENOUS BLOOD / Unknown Venipuncture / Unknown 10/11/2021 7:40 EST 10/11/2021 8:08 EST Narrative [facility] - 10/11/2021 8:41 EST Moderate Intensity Coumadin INR = 2.0-3.0 Adjustments in anticoagulant therapy dose should be based on the INR and NOT on the Protime. Val Morales MD HEMATOLOGY & PF4 ORDERABLES F inal Result Performing Organization Address [facility] Co de Phone Number [facility] [address] [place] [address] * (ABNORMAL) COMPREHENSIVE METABOLIC PANEL (CMP) (10/10/2021 10:08 EST) Sodium 133(L) 136 - 145 mmol/L 10/10/2021 11:11 EST [facility] Potassium 3.6 3.5 - 5.0 mmol/L 10/10/2021 11:11 EST [facility] Chloride 104 96 - 110 mmol/L 10/10/2021 11:11 EST [facility] CO2 Total 23 22 - 32 mmol/L 10/10/2021 11:11 EST [facility] Glucose 152(H) 70 - 100 mg/dL 10/10/2021 11:11 [facility] BUN 14 10 - 26 mg/dL 10/10/2021 11:11 [facility] Creatinine 0.75 0.52 - 1.04 mg/dL 10/10/2021 11:11 [facility] eGFR 86 >60 mL/min/1.7 3m2 10/10/2021 11:11 [facility] Total Protein 5.5(L) 6.3 - 8.2 g/dL 10/10/2021 11:11 [facility] Albumin 2.6(L) 3.4 - 4.9 g/dL 10/10/2021 11:11 [facility] Alkaline Phosphatase 98 38 - 126 U/L 10/10/2021 11:11 [facility] AST 38 15 - 46 U/L 10/10/2021 11:11 [facility] ALT 17 <35 U/L 10/10/2021 11:11 [facility] Bilirubin, Total 0.8 <1.4 mg/dL 10/10/20 11:11 [facility] Calcium 7.8(L) 8.5 - 10.5 mg/dL 10/10/2021 11:11 [facility] Albumin/Globulin Ratio 0.9(L) 1.0 - 2.5 10/10/2021 11:11 [facility] Anion Gap 6(L) 8 - 16 10/10/2021 11:11 [facility] Blood VENOUS BLOOD / Unknown Venipuncture / Unknown 10/10/2021 10:08 EST 10/10/2021 10:41 EST us Lc Luis MD CHEMISTRY & BLOOD GAS ORDERAB LES Final Result [facility] [address] [place] [address] * PTT (10/10/2021 7:43 EST) PTT 27 26 - 37 secs 10/10/2021 8:30 [facility] Blood VENOUS BLOOD / Unknown Venipuncture / Unknown 10/10/2021 7:43 EST 10/10/2021 7:57 EST Narrative [facility] - 10/10/2021 8:30 EST Moderate hemolysis present Val Morales MD HEMATOLOGY & PF4 ORDERABLES F inal Result Performing Organization Address [facility] de Phone Number [facility] [address] [place] [address] * (ABNORMAL) PROTIME (10/10/2021 7:43 EST) I.N.R. 1.3(H) 0.9 - 1.1 Ratio 10/10/2021 8:30 EST [facility] LABORATORY [facility] Pro Time 15.3(H) 10.4 - 12.6 secs 10/10/2021 8:30 EST [facility] LAB[facility]ORY [facility] Blood VENOUS BLOOD / Unknown Venipuncture / Unknown 10/10/2021 7:43 EST 10/10/2021 7:57 EST [facility] LABORATORY SERVICES - 10/10/2021 8:30 EST Moderate Intensity Coumadin INR = 2.0-3.0 Adjustments in anticoagulant therapy dose should be based on the INR and NOT on the Protime. Moderate hemolysis present Val Morales MD HEMATOLOGY & PF4 ORDERABLES F inal Result Performing Organization Address [facility] de Phone Number [facility] LABOR[facility]ORY [facility] [address] [place] [id number] * (ABNORMAL) COMPLETE BLOOD COUNT (10/10/2021 7:43 EST) WBC 13.43(H) 4.00 - 12.40 K/cmm 10/10/2021 8:27 EST [facility] RBC 2.60(L) 3.86 - 5.04 M/cmm 10/10/2021 8:27 EST [facility] Hemoglobin 7.6(L) 11.6 - 15.2 gm/dL 10/10/2021 8:27 [facility] LABORATORY SERVICES HCT 22.2(L) 34.9 - 44.4 % 10/10/2021 8:27 [facility] LABORATORY SERVICES MCV 85 81 - 98 fl 10/10/2021 8:27 [facility]ORY SERVICES MCH 29.2 26.7 - 33.3 pg 10/10/2021 8:27 [facility]ORATORY SERVICES MCHC 34.2 32.1 - 35.9 gm/dL 10/10/2021 8:27 [facility]ORATORY SERVICES RDW-CV 16.5(H) <14.7 % 10/10/2021 8:27 [facility] LABORATORY SERVICES RDW-SD 49.4 <50.4 fl 10/10/2021 8:27 [facility] LABORATORY SERVICES PLT 315 141 - 377 K/cmm 10/10/2021 8:27 [facility]ORY SERVICES MPV 10.9 9.5 - 12.7 fl 10/10/2021 8:27 [facility] SERVICES Blood VENOUS BLOOD / Unknown Venipuncture / Unknown 10/10/2021 7:43 EST 10/10/2021 7:57 EST us Lc Luis MD HEMATOLOGY & PF4 ORDERABLES F inal Result Performing Organization Address City/State/[facility] Co de Phone Number [facility] LABOR[facility]ORY [facility] [address] [place] [address] * (ABNORMAL) COMPLETE BLOOD COUNT (10/09/2021 18:26 EST) WBC 12.34 4.00 - 12.40 K/cmm 10/09/2021 18:41 [facility] RBC 2.66(L) 3.86 - 5.04 M/cmm 10/09/2021 18:41 [facility] Hemoglobin 7.3(L) 11.6 - 15.2 gm/dL 10/09/2021 18:41 [facility] HCT 22.8(L) 34.9 - 44.4 % 10/09/2021 18:41 [facility]ATORY SERVICES MCV 86 81 - 98 fl 10/09/2021 18:41 [facility] SERVICES MCH 27.4 26.7 - 33.3 pg 10/09/2021 18:41 [facility] SERVICES MCHC 32.0(L) 32.1 - 35.9 gm/dL 10/09/2021 18:41 [facility]ATORY SERVICES RDW-CV 16.1(H) <14.7 % 10/09/2021 18:41 [facility] SERVICES RDW-SD 48.9 <50.4 fl 10/09/2021 18:41 [facility] LABORATORY SERVICES PLT 191 141 - 377 K/cmm 10/09/2021 18:41 [facility]ATORY SERVICES MPV 9.2(L) 9.5 - 12.7 fl 10/09/2021 18:41 [facility] Blood VENOUS BLOOD / Unknown Venipuncture / Unknown 10/09/2021 18:26 EST 10/09/2021 18:31 EST us Lc Luis MD HEMATOLOGY & PF4 ORDERABLES F inal Result [facility] [address] [place] [address] * SURGICAL PATHOLOGY (10/09/2021 13:19 EST) Note to Patient The following pathology results have been interpreted by your pathologist and may be available to you before your health provider has had the opportunity to review them. Please allow time for your provider to receive these results and explore management options, if applicable. 10/13/2021 9:07 [facility] LABORATORY SERVICES Final Diagnosis A. STOMACH, BIOPSY: - Fundic mucosa with mild focal active gastritis and reactive (chemical) gastropathy. - Negative for Helicobacter pylori. - Negative for dysplasia and malignancy. - See comment. 10/13/2021 9:07 [facility] SERVICES Diagnosis Comment ANTIBODY(CLONE)(BL OCK):RESULT H pylori (Rabbit Monoclonal (SP48), [place]) (A1): Negative NOTE: One or more of the reagents used in immunoperoxidase testing in this case may not have been cleared or approved by the U.S. Food and Drug Administration (FDA). The FDA has determined that such clearance or approval is not necessary. These tests are used for clinical purposes. They should not be regarded as investigational or for research. These reagents' performance characteristics have been determined by [facility] and/or by the referring laboratory. The positive and negative controls worked appropriately. If immunoperoxidase staining has been performed on alcohol fixed cytology specimens, which has not been fully validated, the assays should be interpreted with caution and correlated with clinical data. This laboratory is certified under the Clinical Laboratory Improvement Amendments of 1988 (CLIA-88) as qualified to perform high complexity clinical laboratory testing. 10/13/2021 9:07 [facility]ORATORY SERVICES Attestation By the signature below, the attending physician certifies that they have 1) personally conducted a gross and/or microscopic examination of the described specimen(s), and/or personally interpreted the results of laboratory testing of the described specimen(s), and 2) personally rendered or confirmed the above diagnosis. 10/13/2021 9:07 [facility] LABORATORY SERVICES at 0907 Clinical History Melena 10/13/2021 9:07 [facility]ATORY SERVICES Gross Description A. Received in formalin labelled with proper patient identification (initials B, P) and stomach bxs are three pascual tissues ranging from 0.2 x 0.1 x 0.1 cm to 0.3 x 0.3 x 0.2 cm. Entirely submitted in A1. CHENTE SORIANO(ASCP) 10/09/2021 15:19 10/13/2021 9:07 [facility]ATORY SERVICES Performing Lab [facility] 9:07 [facility] SERVICES Scanned Images 10/13/2021 9:07 [facility]ATORY SERVICES Tissue SPECIMEN FROM STOMACH OBTAINED BY TOTAL GASTRECTOMY / Unknown 10/09/2021 13:19 EST 10/09/2021 14:20 EST us Gaetano Campbell MD PATHOLOGY ORDERABLES Final Result [facility] [address] [place] [address] * ECG REPORT - SCANNED (10/09/2021 13:00 EST) 10/09/2021 13:0 0 EST us Scan 2 Bulker PROCEDURE/MINOR SURGICAL OR DERABLES Final Result * (ABNORMAL) COMPLETE BLOOD COUNT (10/09/2021 6:56 EST) WBC 12.83(H) 4.00 - 12.40 K/cmm 10/09/2021 7:37 [facility] RBC 2.91(L) 3.86 - 5.04 M/cmm 10/09/2021 7:37 [facility] Hemoglobin 8.2(L) 11.6 - 15.2 gm/dL 10/09/2021 7:37 [facility] HCT 24.9(L) 34.9 - 44.4 % 10/09/2021 7:37 [facility] SERVICES MCV 86 81 - 98 fl 10/09/2021 7:37 [facility] MCH 28.2 26.7 - 33.3 pg 10/09/2021 7:37 [facility] MCHC 32.9 32.1 - 35.9 gm/dL 10/09/2021 7:37 [facility] RDW-CV 15.9(H) <14.7 % 10/09/2021 7:37 [facility] RDW-SD 48.6 <50.4 fl 10/09/2021 7:37 [facility]ATORY SERVICES PLT 188 141 - 377 K/cmm 10/09/2021 7:37 [facility] MPV 9.3(L) 9.5 - 12.7 fl 10/09/2021 7:37 [facility] Blood VENOUS BLOOD / Unknown Venipuncture / Unknown 10/09/2021 6:56 EST 10/09/2021 7:26 EST us Lc Luis MD HEMATOLOGY & PF4 ORDERABLES F inal Result [facility] [address] [place] [address] * (ABNORMAL) COMPREHENSIVE METABOLIC PANEL (CMP) (10/09/2021 6:56 EST) Sodium 135(L) 136 - 145 mmol/L 10/09/2021 8:00 [facility] Potassium 4.0 3.5 - 5.0 mmol/L 10/09/2021 8:00 [facility] Chloride 105 96 - 110 mmol/L 10/09/2021 8:00 [facility] CO2 Total 23 22 - 32 mmol/L 10/09/2021 8:00 [facility] Glucose 118(H) 70 - 100 mg/dL 10/09/2021 8:00 [facility] BUN 20 10 - 26 mg/dL 10/09/2021 8:00 [facility] Creatinine 0.89 0.52 - 1.04 mg/dL 10/09/2021 8:00 [facility] eGFR 70 >60 mL/min/1.7 3m2 10/09/2021 8:00 [facility] Total Protein 5.9(L) 6.3 - 8.2 g/dL 10/09/2021 8:00 [facility] Albumin 2.8(L) 3.4 - 4.9 g/dL 10/09/2021 8:00 [facility] Alkaline Phosphatase 119 38 - 126 U/L 10/09/2021 8:00 [facility] AST 34 15 - 46 U/L 10/09/2021 8:00 [facility] ALT 15 <35 U/L 10/09/2021 8:00 [facility] Bilirubin, Total 1.1 <1.4 mg/dL 10/09/20 8:00 [facility] Calcium 8.1(L) 8.5 - 10.5 mg/dL 10/09/2021 8:00 [facility] Albumin/Globulin Ratio 0.9(L) 1.0 - 2.5 10/09/2021 8:00 EST [facility] Anion Gap 7(L) 8 - 16 10/09/2021 8:00 EST [facility] Blood VENOUS BLOOD / Unknown Venipuncture / Unknown 10/09/2021 6:56 EST 10/09/2021 7:29 EST Lc Luis MD CHEMISTRY & BLOOD GAS ORDERAB LES Final Result Performing Organization Address City/[facility]/ZIP Co de Phone Number [facility] [address] [place] [address] * PTT (10/09/2021 6:56 EST) PTT 27 26 - 37 secs 10/09/2021 7:46 EST [facility] Blood VENOUS BLOOD / Unknown Venipuncture / Unknown 10/09/2021 6:56 EST 10/09/2021 7:26 EST Val Morales MD HEMATOLOGY & PF4 ORDERABLES F inal Result Performing Organization Address City/[facility]/ZIP Co de Phone Number [facility] [address] [place] [address] * (ABNORMAL) PROTIME (10/09/2021 6:56 EST) I.N.R. 1.3(H) 0.9 - 1.1 Ratio 10/09/2021 7:46 EST [facility] Pro Time 15.0(H) 10.4 - 12.6 secs 10/09/2021 7:46 EST [facility] Blood VENOUS BLOOD / Unknown Venipuncture / Unknown 10/09/2021 6:56 EST 10/09/2021 7:26 EST Narrative [facility] - 10/09/2021 7:46 EST Moderate Intensity Coumadin INR = 2.0-3.0 Adjustments in anticoagulant therapy dose should be based on the INR and NOT on the Protime. us Val Morales MD HEMATOLOGY & PF4 ORDERABLES F inal Result [facility] [address] [place] [address] * (ABNORMAL) COMPLETE BLOOD COUNT (10/08/2021 23:05 EST) WBC 13.17(H) 4.00 - 12.40 K/cmm 10/08/2021 23:23 [facility] RBC 2.94(L) 3.86 - 5.04 M/cmm 10/08/2021 23:23 [facility] Hemoglobin 8.1(L) 11.6 - 15.2 gm/dL 10/08/2021 23:23 [facility] HCT 24.4(L) 34.9 - 44.4 % 10/08/2021 23:23 [facility] MCV 83 81 - 98 fl 10/08/2021 23:23 [facility] MCH 27.6 26.7 - 33.3 pg 10/08/2021 23:23 [facility] MCHC 33.2 32.1 - 35.9 gm/dL 10/08/2021 23:23 [facility] RDW-CV 15.6(H) <14.7 % 10/08/2021 23:23 [facility] RDW-SD 46.2 <50.4 fl 10/08/2021 23:23 [facility] PLT 182 141 - 377 K/cmm 10/08/2021 23:23 [facility] MPV 9.0(L) 9.5 - 12.7 fl 10/08/2021 23:23 [facility] Blood VENOUS BLOOD / Unknown Venipuncture / Unknown 10/08/2021 23:05 EST 10/08/2021 23:12 EST Lc Luis MD HEMATOLOGY & PF4 ORDERABLES F inal Result [facility] [address] [place] [address] * CT ANGIO ABDOMEN PELVIS (10/08/2021 16:52 EST) Anatomical Region Laterality Modality Body, Abdomen, Pelvis, Abdomen and Pelvis Computed Tomography 10/08/2021 17:4 6 EST Impressions 10/08/2021 17:46 EST 1. No evidence of active arterial extravasation [...] cirrhosis with stigmata of portal venous hypertension. ?? These findings were discussed by phone with Dr. Cai by Dr. Dawson on 10/08/2021 5:34 PM. I have personally reviewed the images and the above interpretation and agree with the findings. 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 Improved fat stranding around the spleen. Pancreas and adrenal glands are unremarkable. Kidneys, ureters, bladder: Both kidneys enhance symmetrically. Renal mass or hydroureteronephrosis. Both ureters are normal in caliber. The urinary bladder is unremarkable. Uterus, ovaries: Prior hysterectomy. No adnexal mass. Bowel: No bowel obstruction. The wall of the first and second portions of the duodenum appear thickened with a possible ulcer along the medial aspect of the first portion of the duodenum (series 604, image #91). Scattered colonic diverticulosis. Peritoneal cavity / Subperitoneal space: Slight interval increase in small amount of simple perisplenic fluid. Small amount of free fluid along the paracolic gutters. No free air. Lymph nodes: No pathologically enlarged lymph nodes. Abdominal wall: Prior ventral hernia repair in the right upper quadrant. No bowel containing hernia. Musculoskeletal: No compression deformities or concerning osseous lesions. Degenerative changes are present in the lumbar spine and both hips. Procedure Note Dom Dawson MD - 10/08/2021 CT ANGIO ABDOMEN PELVIS 10/08/2021 4:05 PM Clinical History/Comments: GI bleed Comparison: CT abdomen and pelvis on 10/01/2021 Technique: CT angiography of the abdomen and pelvis was performed with theadministration of 100 cc intravenous contrast. Precontrast, arterial, andvenous phase images were acquired. Coronal and sagittal multiplanarreformations, maximal intensity projection as well as 3-D reconstructions,were also performed. I have personally reviewed and adjusted the imagesfor the 3D rendering on an independent workstation, as necessary, prior tointerpretation. Findings: Vasculature: No extraluminal contrast to suggest active arterial extravasation. The abdominal aorta is normal in caliber without aneurysm, occlusion ordissection. Mild calcified plaques are present in the aorta and branches.Again noted is prior embolization of the splenic artery. The celiac trunkand distal branches are otherwise patent. The SMA and SHAVON are patent.Single right and duplicated left renal arteries are patent. Interval increase in nonocclusive thrombus in the main portal vein. Theportal venous system appears dilated. Multiple collateral vessels arenoted anteriorly.. The The major systemic venous structures areunremarkable.. Lower chest: Linear scarring or atelectasis at the left lung base. Hepatobiliary: Redemonstrated cirrhotic configuration of liver. No focalhepatic lesions. Prior cholecystectomy. Unchanged prominent extrahepaticbiliary tree, presumed to be post cholecystectomy state. Spleen, pancreas, adrenal glands: Redemonstrated infarcted spleeninvolving greater than 75% of the parenchyma status post splenic arteryembolization. Improved fat stranding around the spleen. Pancreas andadrenal glands are unremarkable. Kidneys, ureters, bladder: Both kidneys enhance symmetrically. Renal massor hydroureteronephrosis. Both ureters are normal in caliber. The urinarybladder is unremarkable. Uterus, ovaries: Prior hysterectomy. No adnexal mass. Bowel: No bowel obstruction. The wall of the first and second portions ofthe duodenum appear thickened with a possible ulcer along the medialaspect of the first portion of the duodenum (series 604, image #91).Scattered colonic diverticulosis. Peritoneal cavity / Subperitoneal space: Slight interval increase in smallamount of simple perisplenic fluid. Small amount of free fluid along theparacolic gutters. No free air. Lymph nodes: No pathologically enlarged lymph nodes. Abdominal wall: Prior ventral hernia repair in the right upper quadrant.No bowel containing hernia. Musculoskeletal: No compression deformities or concerning osseous lesions.Degenerative changes are present in the lumbar spine and both hips. IMPRESSION 1. No evidence of active arterial extravasation to suggest activehemorrhage. 2. Interval increase in nonocclusive thrombus in the main portal vein. 3. New wall thickening of the first and second portions of the duodenumwhich could be due to increased portal venous thrombus or hypertension, orpossible ulcer. 4. 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 5. Liver cirrhosis with stigmata of portal venous hypertension. These findings were discussed by phone with Dr. Cai by Dr. Dawson on10/08/2021 5:34 PM. I have personally reviewed the images and the above interpretation andagree with the findings. us Laxmi Cai MD IMG CT ORDERABLES Final Re sult * COVID-19 TEST [facility] PCR (10/08/2021 16:15 EST) Swab ENTIRE NASOPHARYNX / Unknown Swab / Unknown 10/08/2021 16:15 EST 10/08/2021 16:18 EST us Laxmi Cai MD MICROBIOLOGY - GENERAL ORD ERABLES Final Result [facility] [address] [place] [address] * COVID-19 TESTING (10/08/2021 16:15 EST) COVID-19 rt-PCR Result Negative Negative 10/08/2021 17:37 EST [facility] Performing Lab [facility] 10/08/2021 17:37 EST [facility] Swab ENTIRE NASOPHARYNX / Unknown Swab / Unknown 10/08/2021 16:15 EST 10/08/2021 16:18 EST us Laxmi Cai MD MICROBIOLOGY - GENERAL ORD ERABLES Final Result Performing Organization Address City/[facility]/ZIP Co de Phone Number [facility] [address] [place] [address] * INFLUENZA A AND B,RSV PCR (10/08/2021 16:15 EST) FLU A RNA Result (FLARES) Negative Negative 10/08/2021 17:37 EST [facility] FLU B RNA Result (FLBRES) Negative Negative 10/08/2021 17:37 EST [facility] RSV RNA Result (RSVRES) Negative Negative 10/08/2021 17:37 EST [facility] Swab ENTIRE NASOPHARYNX / Unknown Swab / Unknown 10/08/2021 16:15 EST 10/08/2021 16:18 EST Laxmi Cai MD MICROBIOLOGY - GENERAL ORD ERABLES Final Result [facility] [address] [place] [address] * EKG 12-LEAD (10/08/2021 16:02 EST) 10/08/2021 16:0 2 EST Narrative [facility] EKG - 10/09/2021 12:55 EST ?[facility] ? Test Date: ?2021-10-08 Pat Name: ? PHYLISS BOOTHE ?Department: ?? ED ? Room: ? AC08 Gender: ? Female ? It Quality Assurance Analyst: ?? : ?1960 ? Requested By: LULY RALPH Order Number: [id number] ? Reading MD: ?? SHERIF ALVARADO MD ? Measurements Intervals ?[place] ? Rate: ? 97 ? P: ?52 UT: ? 132 ?QRS: ?47 QRSD: ? 90 ? T: ?20 QT: ? 356 ? QTc: ?454 ? Interpretive Statements SINUS RHYTHM NONSPECIFIC T-WAVE ABNORMALITY Automated Interpretation. ??Provider Interpretation to follow. Compared to ECG 07/30/2021 16:15:52 T-wave abnormality now present I reviewed the tracing and have either agreed or edited the findings in this report. Electronically Signed On 10-09-2021 12:55:58 EST by SHERIF ALVARADO MD. Procedure Note Sherif Alvarado MD - 10/09/2021 [facility] Test Date: 2021-10-08 Pat Name: TARA BOOTHE Department: ED Room: [facility] Gender: Female It Quality Assurance Analyst: : 1960 Requested By: LULY RALPH Order Number: [id number] Reading MD: SHERIF ALVARADO MD Measurements Intervals [place] Rate: 97 P: 52 UT: 132 QRS: 47 QRSD: 90 T: 20 QT: 356 QTc: 454 Interpretive Statements SINUS RHYTHM NONSPECIFIC T-WAVE ABNORMALITY Automated Interpretation. Provider Interpretation to follow. Compared to ECG 07/30/2021 16:15:52 T-wave abnormality now present I reviewed the tracing and have either agreed or edited the findings inthis report. Electronically Signed On 10-09-2021 12:55:58 EST by SHERIF SNELL. us Laxmi Cai MD CARDIAC ECG ORDERABLES Fin al Result [facility] EKG * PREPARE RED BLOOD CELLS (10/08/2021 15:38 EST) Product Code [id number] [facility] BLOOD [facility] Donor Number [id number] [facility] BLOOD B[facility] Unit ABO O [facility] Unit Rh POS [facility] [place] Unit Status TR^Transfuse [facility] BLOOD [facility] Product Expiration Date [id number] [facility] BLOOD BANK Unit Blood Type Code 5100 [facility] BLOOD [facility] Volume 280 [facility] [place] Coding System [id number] [facility] BLOOD BANK 10/08/2021 15:3 8 EST us Laxmi Cai MD BLOOD BANK ORDERABLES Pricila l Result Performing Organization Address City/[facility]/ZIP Co de Phone Number [facility] BLOOD BANK [address] [place] [address] * PREPARE RED BLOOD CELLS (10/08/2021 15:38 EST) Product Code [id number] [facility] BLOOD [facility] Donor Number [id number] [facility] BLOOD B[facility] Unit ABO O [facility] [place] [facility] Unit Rh POS [facility] [place] [facility] Unit Status RE^Released From [employer] [facility] BLOOD BANK Product Expiration Date [id number] [facility] BLOOD B[facility] Unit Blood Type Code 5100 [facility] BLOOD [facility] Volume 330 [facility] BLOOD B[facility] Coding System [id number] [facility] BLOOD BANK Blood 10/08/2021 15:3 8 EST us Laxmi Cai MD BLOOD BANK ORDERABLES Pricila l Result [facility] BLOOD BANK [address] [place] [address] * TYPE AND SCREEN (10/08/2021 14:41 EST) ABO O 10/08/2021 16:25 EST [facility] BLOOD BANK Rh Factor Positive 10/08/2021 16:25 EST [facility] BLOOD BANK Antibody Screen Negative 10/08/2021 16:25 EST [facility] BLOOD BANK Specimen Expires: 10/11/2021 @ 23:59 10/08/2021 16:25 EST [facility] BLOOD BANK Blood VENOUS BLOOD / Unknown Venipuncture / Unknown 10/08/2021 14:41 EST 10/08/2021 14:50 EST Sal Hubbard MD BLOOD BANK TESTS Edited Resul t - Final Performing Organization Address City/[facility]/ZIP Co de Phone Number [facility] BLOOD BANK [address] [place] [address] * BLOOD BANK HOLD (10/08/2021 14:41 EST) Hold BB Spec will exp at 23:59, 3 days from collect date 10/08/2021 15:01 EST [facility] BLOOD BANK Blood VENOUS BLOOD / Unknown Venipuncture / Unknown 10/08/2021 14:41 EST 10/08/2021 14:50 EST Sal Hubbard MD BLOOD BANK TESTS Final Result Performing Organization Address [facility] Co de Phone Number [facility] BLOOD BANK [address] [place] [address] * HOLD BLUE TOP (10/08/2021 14:41 EST) Hold Hold 10/08/2021 16:01 EST [facility] LABORATORY SERVICES Blood VENOUS BLOOD / Unknown Venipuncture / Unknown 10/08/2021 14:41 EST 10/08/2021 14:48 EST Sal Hubbard MD LAB INFO SERVICE AND SUPPORT & PHONE RESULT Final Result Performing Organization Address City/[facility]/ZIP Co de Phone Number [facility] [address] [place] [address] * (ABNORMAL) BASIC METABOLIC PANEL (BMP) (10/08/2021 14:41 EST) Sodium 135(L) 136 - 145 mmol/L 10/08/2021 15:09 [facility] Potassium 3.6 3.5 - 5.0 mmol/L 10/08/2021 15:09 [facility] Chloride 105 96 - 110 mmol/L 10/08/2021 15:09 [facility] CO2 Total 23 22 - 32 mmol/L 10/08/2021 15:09 [facility] Anion Gap 7(L) 8 - 16 10/08/2021 15:09 [facility] Glucose 93 70 - 100 mg/dL 10/08/2021 15:09 [facility] Calcium 7.8(L) 8.5 - 10.5 mg/dL 10/08/2021 15:09 [facility] BUN 22 10 - 26 mg/dL 10/08/2021 15:09 [facility] Creatinine 0.79 0.52 - 1.04 mg/dL 10/08/2021 15:09 [facility] eGFR 81 >60 mL/min/1.73 m2 10/08/2021 15:09 [facility] Blood VENOUS BLOOD / Unknown Venipuncture / Unknown 10/08/2021 14:41 EST 10/08/2021 14:48 EST us Sal Hubbard MD CHEMISTRY & BLOOD GAS ORDERAB LES Final Result Performing Organization Address City/State/[facility] Co de Phone Number [facility] [address] [place] [phone] * (ABNORMAL) COMPLETE BLOOD COUNT AND DIFFERENTIAL (10/08/2021 14:41 EST) WBC 12.04 4.00 - 12.40 K/cmm 10/08/2021 15:04 [facility] RBC 2.52(L) 3.86 - 5.04 M/cmm 10/08/2021 15:04 [facility] Hemoglobin 7.0(L) 11.6 - 15.2 gm/dL 10/08/2021 15:04 [facility] HCT 21.0(L) 34.9 - 44.4 % 10/08/2021 15:04 [facility] MCV 83 81 - 98 fl 10/08/2021 15:04 [facility] MCH 27.8 26.7 - 33.3 pg 10/08/2021 15:04 [facility] MCHC 33.3 32.1 - 35.9 gm/dL 10/08/2021 15:04 [facility] RDW-CV 15.7(H) <14.7 % 10/08/2021 15:04 [facility] RDW-SD 46.6 <50.4 fl 10/08/2021 15:04 [facility] PLT 202 141 - 377 K/cmm 10/08/2021 15:04 [facility] MPV 9.3(L) 9.5 - 12.7 fl 10/08/2021 15:04 [facility] % Neutrophils 83.7 % 10/08/2021 15:04 [facility] % Lymphocytes 3.2 % 10/08/2021 15:04 [facility] % Monocytes 9.8 % 10/08/2021 15:04 [facility] % Eosinophils 0.2 % 10/08/2021 15:04 [facility] % Basophils 0.2 % 10/08/2021 15:04 [facility] % Immature Grans 2.9 % 10/08/20 15:04 [facility] Absolute Neutrophils 10.06(H) 2.20 - 8.85 K/cmm 10/08/2021 15:04 [facility] Absolute Lymphocytes 0.39(L) 1.09 - 3.30 K/cmm 10/08/2021 15:04 [facility] Absolute Monocytes 1.18(H) 0.10 - 0.80 K/cmm 10/08/2021 15:04 [facility] Absolute Eosinophils 0.03 0.03 - 0.61 K/cmm 10/08/2021 15:04 EST [facility] ABS Basophils 0.03 0.01 - 0.11 K/cmm 10/08/2021 15:04 EST [facility] Absolute Immature Grans 0.35(H) 0.00 - 0.06 K/cmm 10/08/2021 15:04 EST [facility] Type of Differential: Auto 10/08/2021 15:04 EST [facility] Blood VENOUS BLOOD / Unknown Venipuncture / Unknown 10/08/2021 14:41 EST 10/08/2021 14:48 EST us Sal Hubbard MD PACKAGES & DNA PROBE ORDERABL ES Final Result [facility] [address] [place] [address] documented in this encounter Visit Diagnoses Diagnosis GI bleeding- Primary Hemorrhage of gastrointestinal tract, unspecified GI bleeding Hemorrhage of gastrointestinal tract, unspecified Gastrointestinal hemorrhage with melena Decompensated hepatic cirrhosis (HCC-CMS) Acute blood loss anemia Acute posthemorrhagic anemia Epigastric pain Abdominal pain, epigastric Chronic obstructive pulmonary disease, unspecified COPD type (HCC-CMS) Hypersplenism Duodenal ulcer Duodenal ulcer, unspecified as acute or chronic, without hemorrhage, perforation, or obstruction Gastrointestinal hemorrhage associated with peptic ulcer Fever, unspecified fever cause Gastrointestinal hemorrhage associated with duodenal ulcer Other ascites GI bleed Hemorrhage of gastrointestinal tract, unspecified Hypothyroidism Unspecified hypothyroidism Cirrhosis of liver (HCC-CMS) (HCC) Cirrhosis of liver without mention of alcohol documented in this encounter Admitting Diagnoses Diagnosis GI bleed Hemorrhage of gastrointestinal tract, unspecified documented in this encounter Administered Medications Inactive Administered Medications - up to 3 most recent administrations Medication Order MAR Action Action Date Dose Rate Site albuterol (ACCUNEB) nebulizer solution 2.5 mg 2.5 mg, nebulization, 2 TIMES DAILY, First dose on Kirsten 10/08/21 at 2100, Until Discontinued, Routine Given 10/17/2021 7:57 EST 2.5 mg Given 10/16/2021 20:09 EST 2.5 mg Given 10/15/2021 20:09 EST 2.5 mg aluminum & magnesium hydroxide-simethicone (MYLANTA-DS) 400-400-40 mg/5 mL suspension 15 mL 15 mL, oral, NOW X1, 1 dose, On Tue10/13/21 at 0930, Routine Given 10/13/2021 9:46 EST 15 mL aluminum & magnesium hydroxide-simethicone (MYLANTA-DS) 400-400-40 mg/5 mL suspension 15 mL 15 mL, oral, EVERY 4 HOURS PRN, Starting on Tue10/13/21 at 1217, Until 10/17/21 at 1355, Indigestion, nausea, Routine Given 10/13/2021 20:44 EST 15 mL budesonide-formoterol HFA (SYMBICORT) 160-4.5 mcg/actuation inhaler 2 Puff 2 Puff, inhalation, 2 TIMES DAILY, First dose on Tue10/08/21 at 2100, Until Discontinued, Routine Given 10/17/2021 7:58 EST 2 Puffs Given 10/16/2021 20:10 EST 2 Puffs Given 10/16/2021 8:32 EST 2 Puffs cefTRIAXone (ROCEPHIN) 1,000 mg in sodium chloride (NS MBP) 50 mL IVPB 1,000 mg, intravenous, Administer over 30 Minutes, EVERY 24 HOURS, 7 doses, First dose on Tue10/09/21 at 0600, Last dose on Tue10/15/21 at 0600, Type of Therapy: Prophylaxis, Suspected Indication (Select all that apply): GI bleed with known cirrhosis, ID Consult: No, Routine Given 10/15/2021 6:01 EST 1,000 mg Given 10/14/2021 6:14 EST 1,000 mg Given 10/13/2021 6:36 EST 1,000 mg cefTRIAXone (ROCEPHIN) 2,000 mg in sodium chloride (NS MBP) 50 mL IVPB 2,000 mg, intravenous, Administer over 30 Minutes, NOW X1, 1 dose, On Kirsten 10/08/21 at 1745, Type of Therapy: Empiric, Suspected Indication (Select all that apply): Other, Other Indication: gi bleed, ID Consult: No, STAT New Bag 10/08/2021 17:47 EST 2,000 mg enoxaparin (LOVENOX) injection 40 mg 40 mg, subcutaneous, DAILY, First dose on Tue10/11/21 at 1015, Until Discontinued, Routine Given 10/12/2021 8:26 EST 40 mg Given 10/11/2021 10:46 EST 40 mg furosemide (LASIX) tablet 20 mg 20 mg, oral, DAILY, First dose on Tue10/10/21 at 0900, Until Discontinued, Routine Given 10/11/2021 8:05 EST 20 mg Given 10/10/2021 10:23 EST 20 mg furosemide (LASIX) tablet 20 mg 20 mg, oral, DAILY, First dose (after last modification) on 10/17/21 at 0900, Until Discontinued, Routine Given 10/17/2021 8:23 EST 20 mg furosemide (LASIX) tablet 40 mg 40 mg, oral, DAILY, First dose (after last modification) on 10/12/21 at 0900, Until Discontinued, Routine Given 10/16/2021 8:33 EST 40 mg Given 10/15/2021 8:34 EST 40 mg Given 10/14/2021 8:27 EST 40 mg HYDROmorphone (DILAUDID) tablet 2 mg 2 mg, oral, EVERY 4 HOURS PRN, Starting on Tue10/13/21 at 1216, Until Tue10/14/21 at 0904, Pain, Routine Given 10/14/2021 8:26 EST 2 mg Given 10/14/2021 3:41 EST 2 mg Given 10/14/2021 0:31 EST 2 mg HYDROmorphone (DILAUDID) tablet 2 mg 2 mg, oral, EVERY 6 HOURS PRN, Starting on Tue10/14/21 at 0915, Until Tue10/17/21 at 1355, Pain, Routine Given 10/17/2021 11:05 EST 2 mg Given 10/17/2021 5:00 EST 2 mg Given 10/16/2021 22:15 EST 2 mg HYDROmorphone (DILAUDID) tablet 4 mg 4 mg, oral, EVERY 4 HOURS PRN, Starting on Tue10/10/21 at 0821, Until Tue10/13/21 at 1219, Pain, Routine Given 10/13/2021 9:46 EST 4 mg Given 10/13/2021 5:16 EST 4 mg Given 10/13/2021 0:53 EST 4 mg HYDROmorphone (PF) (DILAUDID) 0.5 mg/0.5 mL syringe 0.5 mg 0.5 mg, intravenous, EVERY 3 HOURS PRN, Starting on Kirsten 10/08/21 at 1910, Until 10/10/21 at 0822, Pain, Routine Given 10/10/2021 6:23 EST 0.5 mg Given 10/10/2021 3:12 EST 0.5 mg Given 10/09/2021 23:49 EST 0.5 mg HYDROmorphone (PF) (DILAUDID) 0.5 mg/0.5 mL syringe 1 mg 1 mg, intravenous, NOW X1, 1 dose, On Kirsten 10/08/21 at 1600, STAT Given 10/08/2021 15:52 EST 1 mg HYDROmorphone (PF) (DILAUDID) 0.5 mg/0.5 mL syringe 1 mg 1 mg, intravenous, NOW X1, 1 dose, On Kirsten 10/08/21 at 1745, STAT Given 10/08/2021 17:35 EST 1 mg iohexoL (OMNIPAQUE 350) solution 100 mL 100 mL, intravenous, Once in imaging, 1 dose, Starting on Kirsten 10/08/21 at 1630, Until Kirsten 10/08/21 at 1653, Routine, Imaging Protocol Orders Given 10/08/2021 16:53 EST 100 mL ipratropium-albuteroL (DUONEB) 0.5 mg-3 mg(2.5 mg base)/3 mL nebulizer solution 3 mL 3 mL, nebulization, EVERY 6 HOURS PRN, Starting on Kirsten 10/08/21 at 1909, Until 10/17/21 at 1355, Wheezing, Shortness of Breath, Routine lactated ringers (LR) infusion at 100 mL/hr, 1,000 mL, intravenous, CONTINUOUS, Starting on Tue10/09/21 at 0815, Until Tue10/09/21 at 1422, Routine New Bag 10/09/2021 8:33 EST 1,000 mL 100 mL/hr lactated ringers (LR) infusion at 75 mL/hr, intravenous, CONTINUOUS, Starting on Tue10/09/21 at 1345, Until 10/10/21 at 0702, Routine, Recovery (only) Rate Documented 10/10/2021 6:35 EST 75 mL/hr New Bag 10/09/2021 21:10 EST 75 mL/hr New Bag 10/09/2021 14:34 EST 75 mL/hr lactated ringers (LR) infusion 30 mL/hr, intravenous, PRN, Starting on Tue10/14/21 at 1529, Until Kirsten 10/15/21 at 0744, Routine, Preprocedure New Bag 10/14/2021 15:47 EST 30 mL/hr 30 mL/hr levothyroxine (SYNTHROID) tablet 25 mcg 25 mcg, oral, DAILY BEFORE BREAKFAST, First dose on Tue10/09/21 at 0700, Until Discontinued, Routine Given 10/17/2021 6:13 EST 25 mcg Given 10/16/2021 6:10 EST 25 mcg Given 10/15/2021 6:01 EST 25 mcg lidocaine (XYLOCAINE) 2 % viscous solution 15 mL 15 mL, oral, NOW X1, 1 dose, On Tue10/13/21 at 0930, Routine Given 10/13/2021 9:46 EST 15 mL lidocaine (XYLOCAINE) 2 % viscous solution 15 mL 15 mL, oral, EVERY 4 HOURS PRN, Starting on Tue10/13/21 at 1217, Until 10/17/21 at 1355, Pain, nausea, Routine Given 10/13/2021 20:43 EST 15 mL multivitamin (NEPHROVITE) 0.8 mg tablet 1 Tablet 1 Tablet, oral, AT BEDTIME, First dose on Tue10/14/21 at 2100, Until Discontinued, Routine Given 10/16/2021 20: 53 EST 1 Tablet Given 10/15/2021 20:41 EST 1 Tablet Given 10/14/2021 20:56 EST 1 Tablet octreotide (SANDOSTATIN) 50 mcg in sodium chloride (NS) 0.9 % 50 mL IVPB 50 mcg, intravenous, Administer over 15 Minutes, NOW X1, 1 dose, On Tue10/08/21 at 1745, STAT Given 10/08/2021 18:18 EST 50 mcg octreotide (SANDOSTATIN) 500 mcg in sodium chloride (NS) 0.9 % 250 mL infusion 50 mcg/hr (25 mL/hr), intravenous, CONTINUOUS, Starting on Tue10/08/21 at 1745, Until Tue10/09/21 at 1410, STAT New Bag 10/08/2021 18:33 EST 50 mcg/hr 25 mL/hr ondansetron (PF) (ZOFRAN) injection 4 mg 4 mg, intravenous, NOW X1, 1 dose, On Kirsten 10/08/21 at 1600, STAT Given 10/08/2021 15:52 EST 4 mg ondansetron (PF) (ZOFRAN) injection 4 mg 4 mg, intravenous, EVERY 6 HOURS PRN, Starting on Kirsten 10/08/21 at 2126, Until Tue10/09/21 at 0755, Nausea, Routine Given 10/09/2021 4:31 EST 4 mg Given 10/08/2021 21:49 EST 4 mg ondansetron (PF) (ZOFRAN) injection 4 mg 4 mg, intravenous, EVERY 4 HOURS PRN, Starting on Tue10/09/21 at 0800, Until 10/17/21 at 1355, Nausea, Routine Given 10/17/2021 11:05 EST 4 mg Given 10/17/2021 4:59 EST 4 mg Given 10/16/2021 20:54 EST 4 mg pantoprazole (PROTONIX) injection 40 mg 40 mg, intravenous, NOW X1, 1 dose, On Kirsten 10/08/21 at 1745, STAT Given 10/08/2021 17:47 EST 40 mg pantoprazole (PROTONIX) injection 40 mg 40 mg, intravenous, 2 TIMES DAILY, First dose on Tue10/09/21 at 0900, Until Discontinued, Routine Given 10/10/2021 8:00 EST 40 mg Given 10/09/2021 20:49 EST 40 mg Given 10/09/2021 14:45 EST 40 mg pantoprazole (PROTONIX) injection 40 mg 40 mg, intravenous, 2 TIMES DAILY, First dose on Tue10/13/21 at 1015, Until Discontinued, Routine Given 10/16/2021 8:32 EST 40 mg Given 10/15/2021 20:41 EST 40 mg Given 10/15/2021 8:33 EST 40 mg pantoprazole (PROTONIX) tablet 40 mg 40 mg, oral, 2 TIMES DAILY, First dose on 10/10/21 at 2100, Until Discontinued, Routine Given 10/13/2021 6:35 EST 4 0 mg Given 10/12/2021 20:06 EST 40 mg Given 10/12/2021 6:30 EST 40 mg pantoprazole (PROTONIX) tablet 40 mg 40 mg, oral, 2 TIMES DAILY, First dose on Tue10/16/21 at 2100, Until Discontinued, Routine Given 10/17/2021 8:23 EST 4 0 mg Given 10/16/2021 20:54 EST 40 mg ramelteon (ROZEREM) tablet 8 mg 8 mg, oral, AT BEDTIME, First dose on Tue10/09/21 at 2100, Until Discontinued, Routine Given 10/16/2021 20:53 EST 8 mg Given 10/15/2021 20:41 EST 8 mg Given 10/14/2021 20:56 EST 8 mg sertraline (ZOLOFT) tablet 50 mg 50 mg, oral, DAILY, First dose on Tue10/09/21 at 0900, Until Discontinued, Routine Given 10/17/2021 8:23 EST 50 mg Given 10/16/2021 8:33 EST 50 mg Given 10/15/2021 8:34 EST 50 mg sodium chloride 0.9 % (flush) flush 3 mL 3 mL, intravenous, PRN, Starting on Tue10/09/21 at 1256, Until Tue10/12/21 at 1301, Line Care, Routine, Preprocedure Given 10/11/2021 8:06 EST 3 mL sodium chloride 0.9 % (flush) flush 3 mL 3 mL, intravenous, PRN, Starting on Tue10/14/21 at 1529, Until Tue10/16/21 at 0928, Line Care, Routine, Preprocedure Given 10/16/2021 8:33 EST 3 mL Given 10/15/2021 20:42 EST Given 10/15/2021 16:06 EST 3 mL sodium chloride 0.9 % (flush) flush 5 mL 5 mL, intravenous, EVERY 8 HOURS, First dose on Tue10/09/21 at 1045, Until Discontinued, Routine, Preprocedure Given 10/15/2021 21:00 EST 5 mL Given 10/14/2021 8:28 EST 5 mL Given 10/14/2021 0:33 EST 5 mL sodium chloride 0.9 % (flush) flush 5 mL 5 mL, intravenous, EVERY 8 HOURS, First dose on Tue10/09/21 at 1600, Until Discontinued, Routine, Preprocedure Given 10/14/2021 21:03 EST 5 mL Given 10/14/2021 8:28 EST 5 mL Given 10/14/2021 0:32 EST 5 mL sodium chloride 0.9 % (flush) flush 5 mL 5 mL, intravenous, EVERY 8 HOURS, First dose on Tue10/14/21 at 1600, Until Discontinued, Routine, Preprocedure Given 10/16/2021 0:20 EST 5 mL Given 10/15/2021 8:45 EST 5 mL Given 10/14/2021 20:57 EST 5 mL sodium chloride 0.9 % BOLUS 500 mL 500 mL, intravenous, NOW X1, 1 dose, On Kirsten 10/08/21 at 1600, STAT New Bag 10/08/2021 15:52 EST 500 mL spironolactone (ALDACTONE) tablet 100 mg 100 mg, oral, DAILY, First dose (after last modification) on 10/12/21 at 0900, Until Discontinued, Routine Given 10/16/2021 8:32 EST 100 mg Given 10/15/2021 8:34 EST 100 mg Given 10/14/2021 8:26 EST 100 mg spironolactone (ALDACTONE) tablet 50 mg 50 mg, oral, DAILY, First dose on 10/10/21 at 0900, Until Discontinued, Routine Given 10/11/2021 8:05 EST 50 mg Given 10/10/2021 10:23 EST 50 mg spironolactone (ALDACTONE) tablet 50 mg 50 mg, oral, DAILY, First dose (after last modification) on 10/17/21 at 0900, Until Discontinued, Routine Given 10/17/2021 8:23 EST 50 mg sucralfate (CARAFATE) suspension 1 g 1 g, oral, 4 TIMES DAILY BEFORE MEALS & AT BEDTIME, First dose on 10/10/21 at 1130, Until Discontinued, Routine Given 10/17/2021 11:05 EST 1 g Given 10/17/2021 6:13 EST 1 g Given 10/16/2021 20:54 EST 1 g traZODone (DESYREL) tablet 200 mg 200 mg, oral, AT BEDTIME, First dose (after last modification) on 10/10/21 at 2100, Until Discontinued, Routine Given 10/10/2021 20:47 EST 200 mg traZODone (DESYREL) tablet 250 mg 250 mg, oral, AT BEDTIME, First dose (after last modification) on 10/11/21 at 2100, Until Discontinued, Routine Given 10/16/2021 20:54 EST 250 mg Given 10/15/2021 20:41 EST 250 mg Given 10/14/2021 20:56 EST 250 mg documented in this encounter Discontinued Medications Medication Sig Discontinue Reason Start Date End Da te traZODone (DESYREL) 100 mg tablet Take 1 Tablet by mouth at bedtime. Alternate therapy 10/02/2021 10/08/2021 albuterol (ACCUNEB) 2.5 mg /3 mL (0.083 %) nebulizer solution USE 1 VIAL VIA NEBULIZER 4 TIMES A DAY NEEDED 05/07/2020 10/17/2021 amoxicillin (AMOXIL) 500 mg capsule Take 1 capsule by mouth every 8 hours. 10/01/2021 10/17/2021 HYDROmorphone (DILAUDID) 2 mg tablet Take 1 Tablet by mouth every 3 hours as needed for Pain. Early fill for travel Daily Max: 16 mg 10/01/2021 10/17/2021 documented as of this encounter Active and Recently Administered Medications Times are shown in EST. Scheduled Medication Order 10/15/2021 10/16/2021 10/17/2021 albuterol (ACCUNEB) nebulizer solution 2.5 mg 2.5 mg, nebulization, 2 TIMES DAILY, First dose on Kirsten 10/08/21 at 2100, Until Discontinued, Routine 0957 (Given - Provider: Tiny Carroll, RT)2008 (Given - Provider: Susy Lake) 0841 (Not Given - Provider: Inderjit Braden RT - Reason: Patient off unit - Comment: in IR)2008 (Given - Provider: Karol Joseph) 0757 (Given - Provider: Apolinar Rutledge, RT)0900 (Canceled Entry - Provider: pAolinar Rutledge, RT) budesonide-formoterol HFA (SYMBICORT) 160-4.5 mcg/actuation inhaler 2 Puff 2 Puff, inhalation, 2 TIMES DAILY, First dose on Kirsten 10/08/21 at 2100, Until Discontinued, Routine 0835 (Given - Provider: Kellee Coats RN)2011 (Given - Provider: Susy Lake) 0832 (Given - Provider: Kellee Coats RN)2009 (Given - Provider: Karol Joseph) 0758 (Given - Provider: Apolinar Rutledge, RT)09 (Canceled Entry - Provider: Apolinar Rutledge RT) cefTRIAXone (ROCEPHIN) 1,000 mg in sodium chloride (NS MBP) 50 mL IVPB (COMPLETED) 1,000 mg, intravenous, Administer over 30 Minutes, EVERY 24 HOURS, 7 doses, First dose on Tue10/09/21 at 0600, Last dose on Tue10/15/21 at 0600, Type of Therapy: Prophylaxis, Suspected Indication (Select all that apply): GI bleed with known cirrhosis, ID Consult: No, Routine 600 (Given - Provider: Stefani Arana RN) furosemide (LASIX) tablet 20 mg 20 mg, oral, DAILY, First dose (after last modification) on 10/17/21 at 0900, Until Discontinued, Routine 08 (Given - Provider: Ange Rubalcava RN) furosemide (LASIX) tablet 40 mg (CANCELED) 40 mg, oral, DAILY, First dose (after last modification) on Tue10/12/21 at 0900, Until Discontinued, Routine 0834 (Given - Provider: Kellee Coats RN) 08 (Given - Provider: Kellee Coats RN) levothyroxine (SYNTHROID) tablet 25 mcg 25 mcg, oral, DAILY BEFORE BREAKFAST, First dose on Tue10/09/21 at 0700, Until Discontinued, Routine 06 (Given - Provider: Stefani Arana RN) 06 (Given - Provider: Meche Dunlap RN) 06 (Given - Provider: Meche Dunlap RN) multivitamin (NEPHROVITE) 0.8 mg tablet 1 Tablet 1 Tablet, oral, AT BEDTIME, First dose on Tue10/14/21 at 2100, Until Discontinued, Routine 2040 (Given - Provider: Divine Reinoso RN) 2052 (Given - Provider: Meche Dunlap RN) pantoprazole (PROTONIX) injection 40 mg (CANCELED) 40 mg, intravenous, 2 TIMES DAILY, First dose on Tue10/13/21 at 1015, Until Discontinued, Routine 0833 (Given - Provider: Kellee Coats RN)2040 (Given - Provider: Divine Reinoso RN) 0832 (Given - Provider: Kellee Coats RN) pantoprazole (PROTONIX) tablet 40 mg 40 mg, oral, 2 TIMES DAILY, First dose on Tue10/16/21 at 2100, Until Discontinued, Routine 2053 (Given - Provider: Meche Dunlap RN) 0823 (Given - Provider: Ange Rubalcava RN) ramelteon (ROZEREM) tablet 8 mg 8 mg, oral, AT BEDTIME, First dose on Tue10/09/21 at 2100, Until Discontinued, Routine 2040 (Given - Provider: Divine Reinoso RN) 2052 (Given - Provider: Meche Dunlap RN) sertraline (ZOLOFT) tablet 50 mg 50 mg, oral, DAILY, First dose on Tue10/09/21 at 0900, Until Discontinued, Routine 0834 (Given - Provider: Kellee Coats RN) 0833 (Given - Provider: Kellee Coats RN) 0823 (Given - Provider: Ange Rubalcava RN) sodium chloride 0.9 % (flush) flush 5 mL (CANCELED)(Linked Group 1) 5 mL, intravenous, EVERY 8 HOURS, First dose on Tue10/09/21 at 1045, Until Discontinued, Routine, Preprocedure 0846 (Not Given - Provider: Kellee Coats RN - Reason: Order parameters not met)1607 (Not Given - Provider: Kellee Coats RN - Reason: Order parameters not met)2100 (Given - Provider: Divine Reinoso RN) 0020 (Not Given - Provider: Meche Dunlap RN - Reason: Order parameters not met)0834 (Not Given - Provider: Kellee Coats RN - Reason: Order parameters not met) sodium chloride 0.9 % (flush) flush 5 mL (CANCELED)(Linked Group 2) 5 mL, intravenous, EVERY 8 HOURS, First dose on Tue10/14/21 at 1600, Until Discontinued, Routine, Preprocedure 0845 (Given - Provider: Kellee Coats RN)1606 (Not Given - Provider: Kellee Coats RN - Reason: Order parameters not met) 0020 (Given - Provider: Meche Dunlap RN)0833 (Not Given - Provider: Kellee Coats RN - Reason: Order parameters not met) spironolactone (ALDACTONE) tablet 100 mg (CANCELED) 100 mg, oral, DAILY, First dose (after last modification) on 10/12/21 at 0900, Until Discontinued, Routine 0834 (Given - Provider: Kellee Coats RN) 0832 (Given - Provider: Kellee Coats RN) spironolactone (ALDACTONE) tablet 50 mg 50 mg, oral, DAILY, First dose (after last modification) on 10/17/21 at 0900, Until Discontinued, Routine 0823 (Given - Provider: Ange Rubalcava RN) sucralfate (CARAFATE) suspension 1 g 1 g, oral, 4 TIMES DAILY BEFORE MEALS & AT BEDTIME, First dose on 10/10/21 at 1130, Until Discontinued, Routine 0601 (Given - Provider: Stefani Arana RN)1229 (Given - Provider: Kellee Coats RN - Comment: due to activity on the floor)1607 (Given - Provider: Kellee Coats RN)2042 (Given - Provider: Divine Reinoso RN) 0610 (Given - Provider: Meche Dunlap RN)1213 (Given - Provider: Kellee Coats RN - Comment: due to activity on the floor)1624 (Given - Provider: Kellee Coats RN)2054 (Given - Provider: Meche Dunlap RN) 0613 (Given - Provider: Meche Dunlap RN)1105 (Given - Provider: Ange Rubalcava RN) traZODone (DESYREL) tablet 250 mg 250 mg, oral, AT BEDTIME, First dose (after last modification) on 10/11/21 at 2100, Until Discontinued, Routine 2040 (Given - Provider: Divine Reinoso RN) 2053 (Given - Provider: Meche Dunlap RN) PRN Medication Order 10/15/2021 10/16/2021 10/17/2021 albuterol (ACCUNEB) nebulizer solution 2.5 mg 2.5 mg, nebulization, EVERY 4 HOURS PRN, Starting on Kirsten 10/08/21 at 1942, Until 10/17/21 at 1355, Wheezing, Routine aluminum & magnesium hydroxide-simethicone (MYLANTA-DS) 400-400-40 mg/5 mL suspension 15 mL(Linked Group 3) 15 mL, oral, EVERY 4 HOURS PRN, Starting on Tue10/13/21 at 1217, Until 10/17/21 at 1355, Indigestion, nausea, Routine HYDROmorphone (DILAUDID) tablet 2 mg 2 mg, oral, EVERY 6 HOURS PRN, Starting on Tue10/14/21 at 0915, Until 10/17/21 at 1355, Pain, Routine 0156 (Given - Provider: Stefani Arana, KENN)0850 (Given - Provider: Kellee Coats RN)1459 (Given - Provider: Kellee Coats RN)2042 (Given - Provider: Divine Reinoso, KENN) 0337 (Given - Provider: Meche Dunlap, KENN)1025 (Given - Provider: Kellee Coats RN)1606 (Given - Provider: Kellee Coats RN)2215 (Given - Provider: Meche Dunlap, KENN) 0500 (Given - Provider: Meche Dunlap, KENN)1105 (Given - Provider: Ange Rubalcava RN) ipratropium-albuteroL (DUONEB) 0.5 mg-3 mg(2.5 mg base)/3 mL nebulizer solution 3 mL 3 mL, nebulization, EVERY 6 HOURS PRN, Starting on Tue10/08/21 at 1909, Until 10/17/21 at 1355, Wheezing, Shortness of Breath, Routine lidocaine (PF) 10 mg/mL (1 %) injection 2 mg 2 mg, intradermal, PRN, 4 doses, Starting on Tue10/08/21 at 1908, Until 10/17/21 at 1355, peripheral intravenous catheter placement, Routine lidocaine (XYLOCAINE) 2 % viscous solution 15 mL(Linked Group 3) 15 mL, oral, EVERY 4 HOURS PRN, Starting on Tue10/13/21 at 1217, Until 10/17/21 at 1355, Pain, nausea, Routine ondansetron (PF) (ZOFRAN) injection 4 mg 4 mg, intravenous, EVERY 4 HOURS PRN, Starting on Tue10/09/21 at 0800, Until Tue10/17/21 at 1355, Nausea, Routine 0156 (Given - Provider: Stefani Arana, RN)0619 (Given - Provider: Stefani Arana, RN)1410 (Given - Provider: Kellee Coats, RN)2052 (Given - Provider: Divine Reinoso, RN) 0338 (Given - Provider: Meche Dunlap, KENN)1032 (Given - Provider: Kellee Coats RN)1609 (Given - Provider: Kellee Coats RN)2054 (Given - Provider: Meche Dunlap, KENN) 0459 (Given - Provider: Meche Dunlap RN)1105 (Given - Provider: Ange Rubalcava RN) sodium chloride 0.9 % (flush) flush 3 mL (CANCELED) 3 mL, intravenous, PRN, Starting on Tue10/14/21 at 1529, Until Tue10/16/21 at 0928, Line Care, Routine, Preprocedure 1606 (Given - Provider: Kellee Coats RN)2042 (Given - Provider: Divine Reinoso RN) 0833 (Given - Provider: Kellee Coats RN) Linked Groups Order Group 1: Insert Saline Lock (CANCELED) Routine, ONE TIME, On Tue10/09/21 at 1025, For 1 occurrence, Preprocedure And sodium chloride 0.9 % (flush) flush 5 mL (CANCELED)Jump to med 5 mL, intravenous, EVERY 8 HOURS, First dose on Tue10/09/21 at 1045, Until Discontinued, Routine, Preprocedure Group 2: Insert Saline Lock (CANCELED) Routine, ONE TIME, On Tue10/14/21 at 1530, For 1 occurrence, Preprocedure And sodium chloride 0.9 % (flush) flush 5 mL (CANCELED)Jump to med 5 mL, intravenous, EVERY 8 HOURS, First dose on Tue10/14/21 at 1600, Until Discontinued, Routine, Preprocedure Group 3: lidocaine (XYLOCAINE) 2 % viscous solution 15 mLJump to med 15 mL, oral, EVERY 4 HOURS PRN, Starting on Tue10/13/21 at 1217, Until 10/17/21 at 1355, Pain, nausea, Routine And aluminum & magnesium hydroxide-simethicone (MYLANTA-DS) 400-400-40 mg/5 mL suspension 15 mLJump to med 15 mL, oral, EVERY 4 HOURS PRN, Starting on Tue10/13/21 at 1217, Until 10/17/21 at 1355, Indigestion, nausea, Routine documented in this encounter Orders Medications Ordered That Luc ht Not Have Been Administered Count Last Ordered Date First Ordered Date atropine 0.1 mg/mL syringe 0.5 mg 2 021 10/09/2021 diphenhydrAMINE (BENADRYL) injection 25 mg 3 10/14/2021 10/09/2021 lactated ringers (LR) infusion 3 10/14/2021 10/09/2021 lidocaine (PF) 10 mg/mL (1 % ) injection 2 mg 7 10/14/2021 10/08/2021 naloxone (NARCAN) injection 0.2 mg 2 202010/09/2021 ondansetron (PF) (ZOFRAN) injection 4 mg 2 10/14/2021 10/09/2021 sodium chloride 0.9 % (NS) infusion 3 10/1410/09/2021 aluminum & magnesium hydroxi de-simethicone (MYLANTA-DS) 400-400-40 mg/5 mL suspension 15 mL 1 10/13/2021 lidocaine (XYLOCAINE) 2 % vi scous solution 15 mL 1 10/13/2021 traZODone (DESYREL) tablet 100 mg 1 sodium chloride 0.9 % (flush) flush 3 mL 1 10/09/2021 albuterol (ACCUNEB) nebulize r solution 2.5 mg 1 10/08/2021 budesonide-formoterol HFA (S YMBICORT) 160-4.5 mcg/actuation inhaler 2 Puff 1 10/08/2021 furosemide (LASIX) tablet 20 mg 1 HYDROmorphone (DILAUDID) tablet 2 mg 1 09/21 ipratropium-albuteroL (DUONE B) 0.5 mg-3 mg(2.5 mg base)/3 mL nebulizer solution 3 mL 1 10/08/2021 spironolactone (ALDACTONE) tablet 50 mg 1 1 12/08/2020 traZODone (DESYREL) tablet 250 mg 1 021 Lab Orders Without Results Count Last Ordered D ate First Ordered Date COMPLETE BLOOD COUNT 1 10/17/2021 Diet Count Last Ordered Date First Orde red Date DISCHARGE DIET 1 10/17/2021 Nursing Count Last Ordered Date First Orde red Date ACTIVITY INSTRUCTIONS 1 10/17/2021 DRIVING INSTRUCTIONS 1 10/17/2021 MEASURE WEIGHT 1 10/15/2021 NURSING COMMUNICATION 1 10/15/2021 VITAL SIGNS 3 10/14/2021 10/08/2021 DISCONTINUE TELEMETRY 1 10/11/2021 CONTRAINDICATION TO ANTICOAG ULATION THERAPY 1 10/08/2021 INTAKE AND OUTPUT 1 10/08/2021 PT Count Last Ordered Date First Orde red Date PT EVALUATION AND TREAT 1 10/08/2021 Respiratory Care Count Last Ordered Date First Ordered Date DRY POWDERED OR METERED DOSE INHALER 15 09/2210/09/2021 NEBULIZER TX INTERMITTENT 15 10/16/2021 IV Count Last Ordered Date First Orde red Date IV REQUEST 1 10/10/2021 Admission Count Last Ordered Date First Orde red Date ADMIT TO INPATIENT 1 10/08/2021 Transfer Count Last Ordered Date First Orde red Date ED BED REQUEST 1 10/08/2021 Discharge Count Last Ordered Date First Orde red Date DISCHARGE PATIENT 1 10/17/2021 Legal Count Last Ordered Date First Orde red Date MISCELLANEOUS DISCHARGE INSTRUCTIONS 1 09/22 documented in this encounter Additional Health Concerns Infection Onset Date Last Indicated Resolved Time R/O COVID-19 10/08/2021 10/08/2021 10/08/2021 18:1 8 EST documented as of this encounter Care Teams Cardiology Physician Assistant Relationship Specialty Start Date End Date Emigdio Veronica MD [address] [place] [phone] PCP - General Internal Medicine - Primary Care 05/22/20 02/21/24 Starr Paige MD [address] [place] [phone] Hematology 10/08/21 06/09/22 documented as of this encounter
--- OUTSIDE RECORDS SUMMARY | 2024-11-22 17:10 | XMS_ITS | Encounter Summary ---
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 Not [...] Lala Orr RN documented in this encounter Plan of Treatment Upcoming Encounters Date Type Department Care Team (Late st Contact Info) Description 01/04/2025 13:00 EST Office Visit [facility] Ophthalmology - [address] [phone] Gagandeep Rome MD [address] [place] [address], [facility] [address] [place] [phone] 02/11/2025 13:30 EDT Telemedicine [facility] Hematology & Oncology - [address] [phone] Dana Padilla MD [address] [place] [address], [facility] [address] [place] [phone] documented as of this encounter Visit Diagnoses Diagnosis Melena- Primary Blood in stool documented in this encounter Care Teams Bank Accountant Relationship Specialty Start Date End Date Emigdio Veronica MD [address] [place] [phone] PCP - General Internal Medicine - Primary Care 05/22/20 02/21/24 Starr Paige MD [address] [place] [phone] Hematology 10/08/21 06/09/22 documented as of this encounter
--- OUTSIDE RECORDS SUMMARY | 2024-11-22 17:10 | XMS_ITS | Encounter Summary ---
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 Daily Max: 8 mg 28 Tablet 10/19/2021 10/21/2021 documented in this encounter Miscellaneous Notes * Telephone Encounter - Jes Mayorga RN - 11/03/2021 0932 EST Fluid has been building up the lats 4 days. Leg pain is worse. Gained 23 pounds since discharge Had black tarry stools last night. Patient also having some blood in urine. Does not have home health. Having trouble walking because legsa are so swollen. Feeling slightly dizzy. Taking furosemide and spironolactone. Had to get up during the night. Airway didn't feel like opening up. Uses oxygen at night. Patient referred to ER for dizziness, black stools, weight gain and trouble breathing at night. Report called to [facility] triage. * Telephone Encounter - Noemi Hall - 11/03/2021 0929 EST patient states she is having the GI bleed again. Stool is black/tarry and a lot of bllod in urine. Patient states has gained 22 lbs and is very swollen and can barely touch skin * Telephone Encounter - Kuldeep Santa RN - 10/19/2021 1412 EST Called pt and she is aware. * Telephone Encounter - Emigdio Veronica MD - 10/19/2021 1401 EST Dilaudid refilled at 1 tablet Q6 PRN which is the same dosing she was discharged with. It is a notable escalation in her opiate therapy from her dosing prior to admission. I will give her a week supply at this increased dosage and discuss with her tomorrow long-term dosing of her dilaudid. * Telephone Encounter - Ebony Toscano - 10/19/2021 1210 EST Pt calling, wanted to know if her Dilaudid Rx has been done yet. I xpld Dr. Veronica is here this afternoon. She says she has to go out to give blood, wants to be able to p/u Rx at the same time. * Telephone Encounter - Kuldeep Santa RN - 10/19/2021 1026 EST Hospital Discharge Follow Up: Reason for admission: GI bleed Symptoms improving? Yes. Pts is feeling better although very fatigued and weak. Not weaker than before DC home from the hospital. She does have nausea now and then but the zofran helps. No vomiting. She denies bloody, tarry or black stools. No worsening SOB, improved from time of admission. Wears home O2 at night. She has upper abdominal pain. She is taking the PPI and carafate as directed. Pt has been taking her dilaudid 2 mg tablets for pain. She was given #10 on 10/17 on DC and took 4 tabs Tuesday and 4 yesterday. So far she has had 1 today so she has one left and will ne out today.Requesting a refill. She is having the CBC done later today. Discharge instructions available? no - unclear if pt had them with her. Medications Reviewed/prescriptions filled? Yes- reviewed all. Insurance did not cover liquid Carafate so pharmacy had to dispense tablets instead. Support at home? yes Home health service/issues? no - Questions about discharge instructions? no - Follow-up visit scheduled? Yes- she had a previously scheduled follow up scheduled for tomorrow- changed that to HFU visit. Education/Plan: Reasons to return to the ED. Monitoring for S&S of bleeding. Diet recommendations. KULDEEP SANTA RN 10/19/2021 Pended dilaudid refill here. Pt would like to switch medications to [facility] in [place] since she has moved. * Telephone Encounter - Kuldeep Santa RN - 10/19/2021 1003 EST Pt needs HFU call. Scores 38% and 96. documented in this encounter Plan of Treatment Upcoming Encounters Date Type Department Care Team (Late st Contact Info) Description 01/04/2025 13:00 EST Office Visit [facility] Ophthalmology - [address] [phone] Gagandeep Rome MD [address] [place] [address], [facility] [address] [place] [phone] 02/11/2025 13:30 EDT Telemedicine [facility] Hematology & Oncology - [address] [phone] Dana Padilla MD [address] [facility], [facility] 2 [place] [phone] documented as of this encounter Visit Diagnoses Not on filedocumented in this encounter Discontinued Medications Medication Sig Discontinue Reason Start Date End Da te HYDROmorphone (DILAUDID) 4 mg tablet Take 0.5 Tablets by mouth every 4 hours as needed for Pain. Daily Max: 12 mg 10/02/2021 10/19/2021 HYDROmorphone (DILAUDID) 2 mg tablet Take 1 Tablet by mouth every 6 hours as needed for Pain. Daily Max: 8 mg 10/17/2021 10/19/2021 documented as of this encounter Care Teams Head Sampler Relationship Specialty Start Date End Date Emigdio Veronica MD [address] [place] [phone] PCP - General Internal Medicine - Primary Care 05/22/20 02/21/24 Starr Paige MD [address] [place] [phone] Hematology 10/08/21 06/09/22 documented as of this encounter
--- OUTSIDE RECORDS SUMMARY | 2024-11-22 17:10 | XMS_ITS | Encounter Summary ---
Author Organization [facility] Address [address] [place] [address] Care Team Providers Care Tax Examining Technician Name Role Phone Emigdio Veronica MD Primary Care Provider + Starr Paige MD Unavailable Reason for Visit * Reason Onset Date Comments Appointment Related 10/20/2021 Encounter Details Date Type Department Care Team (Late st Contact Info) Description 10/20/2021 Telephone [facility] Hematology & Oncology - [address] [phone] Katherin Cooper, KENNEL HAND [address] [facility], Level [address] [place] [phone] Appointment Related Social History Tobacco [...] 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 [...] Entry Date Author No 10/08/2021 22:00 EST aLla Orr RN documented in this encounter Miscellaneous Notes * Telephone Encounter - Leonora Wesley - 10/20/2021 1615 EST Called pt with 11/04 zoom with Ep left vm documented in this encounter Plan of Treatment Upcoming Encounters Date Type Department Care Team (Late st Contact Info) Description 01/04/2025 13:00 EST Office Visit [facility] Ophthalmology - [address] [phone] Gagandeep Rome MD [address] [place] [address], [facility] 5 [place] [phone] 02/11/2025 13:30 EDT Telemedicine [facility] Hematology & Oncology - [address] [phone] Dana Padilla MD [address] [place] [address], [facility] [address] [place] [phone] documented as of this encounter Visit Diagnoses Not on filedocumented in this encounter Care Teams Tax Examining Technician Relationship Specialty Start Date End Date Emigdio Veronica MD [address] [place] [phone] PCP - General Internal Medicine - Primary Care 05/22/20 02/21/24 Starr Paige MD [facility] [address] [place] [phone] Hematology 10/08/21 06/09/22 documented as of this encounter
--- OUTSIDE RECORDS SUMMARY | 2024-11-22 17:10 | XMS_ITS | Encounter Summary ---
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 (5 years old or older) Answer Entry Date Author No 10/08/2021 22:00 EST Lala Orr RN documented in this encounter Miscellaneous Notes * Telephone Encounter - Claudine Santa RN - 10/19/2021 1041 EST *see alternate HFU encounter. Closing this encounter. * Telephone Encounter - Noemi Hall - 10/19/2021 0928 EST Requested Prescriptions Pending Prescriptions Disp Refills ??? HYDROmorphone (DILAUDID) 2 mg tablet 10 Tablet 0 Sig: Take 1 Tablet by mouth every 6 hours as needed for Pain. Daily Max: 8 mg [facility]/pharmacy #[id number] - [address] Confirmed Pharmacy? Yes Patient out of medication? Yes: Needs Refill Now Last Refill Date: 10.17.21 Refills left? (explain exceptions requiring early refill) No Recent Visits Date Type Provider Dept 10/08/21 Office Visit Emigdio Veronica MD [place] [facility] 09/18/21 Office Visit Scottie Campuzano PA-C [place] [facility] 07/22/21 Office Visit Scottie Campuzano PA-C [place] [facility] 05/14/21 Office Visit Emigdio Veronica MD [place] [facility] 04/29/21 Office Visit Emigdio Veronica MD [place] [facility] 04/16/21 Office Visit Emigdio Veronica MD [place] [facility] 04/10/21 Office Visit Emigdio Veronica MD [place] [facility] 03/06/21 Office Visit Emigdio Veronica MD [place] [facility] 01/27/21 Office Visit Dom Mackay MD [place] [facility] 11/20/20 Office Visit Emigdio Veronica MD [place] [facility] Showing recent visits within past 540 days with a meds authorizing provider and meeting all other requirements Future Appointments Date Type Provider Dept 10/20/21 Appointment Emigdio Veronica MD [place] [facility] 12/24/21 Appointment Emigdio Veronica MD [place] [facility] Showing future appointments within next 150 days with a meds authorizing provider and meeting all other requirements Future appointment: Already Scheduled Noemi Hall 10/19/2021 9:28 documented in this encounter Plan of Treatment Upcoming Encounters Date Type Department Care Team (Late st Contact Info) Description 01/04/2025 13:00 EST Office Visit [facility] Ophthalmology - [address] [phone] Gagandeep Rome MD [address] [place] [address] [address] [place] [phone] 02/11/2025 13:30 EDT Telemedicine [facility] Hematology & Oncology - [address] [phone] Dana Padilla MD [address] [place] [address], [facility] 2 [place] [phone] documented as of this encounter Visit Diagnoses Not on filedocumented in this encounter Care Teams Bindery Manager Relationship Specialty Start Date End Date Emigdio Veronica MD [address] [place] [phone] PCP - General Internal Medicine - Primary Care 05/22/20 02/21/24 Starr Paige MD [address] [place] [phone] Hematology 10/08/21 06/09/22 documented as of this encounter
--- OUTSIDE RECORDS SUMMARY | 2024-11-22 17:11 | XMS_ITS | Encounter Summary ---
Author Organization [facility] Address [address] [place] [address] Care Team Providers Care Strip Catcher Name Role Phone Emigdio Veronica MD Primary Care Provider + Starr Paige MD Unavailable [phone] Reason for Visit * Auth/Cert Specialty Diagnoses / Procedures [facility] Referred To Contact Diagnoses GI bleeding GI bleed Referral ID Status Reason Start Date Expiration Date Visits Re quested Visits Authorized [id number] 1 1 Encounter Details Date Type Department Care Team (Late st Contact Info) Description 10/09/2021 13:02 EST Anesthesia Event [facility] Endoscopy - Main [address] [address] Jesus Scott MD [address] [place] [address] 2 [place] [phone] Anesthesia Record Procedure Summary Procedure Name Responsible Anesthesiologist Anesthesia Start Time Anesthesia Stop Time UPPER ENDOSCOPY Jesus Scott MD 10/09/21 1302 1 12/09/20 1324 Events Date Time Event Comment 10/09/2021 1302 An Start The patient was re-evaluated immediately before moderate or deep sedation use, before anesthesia induction, or before the anesthesia procedure. 1305 An Start Data 1311 Anesthesia Ready 1321 an stop data 1324 Handoff to RN I completed my handoff to the receiving nurse during which we: 1. Identified the patient 2. Identified the responsible provider 3. Reviewed the pertinent medical history 4. Discussed the surgical course 5. Reviewed intra-op anesthesia management and issues during anesthesia 6. Set expectations for post-procedure period 7. Allowed opportunity for questions and acknowledgement of understanding. 1324 An Stop Meds Name Total ketAMINE 5 mL prefilled syringe 15 mg midazolam 1 mg/mL 2 mL vial 2 mg propOFol (DIPRIVAN) injection 160 mg lactated ringers (LR) infusion 300 mL * Agents No agents on file. * Blood No blood administrations on file. Lines, Drains, and Airways Type Details Placement Removal Peripheral IV 10/08/21; 1453; 22; 1.25; B Yun Introcan; Left; Forearm; Patient arrived with LDA; 10/17/21; 1121; Discharged; No complications, Catheter intact, Dressing applied 10/08/21 1453 by Katelyn Drummond, RN 10/17/21 1121 by Maite Rubalcava RN Peripheral IV 10/08/21; 1506; 18; 2.5; B Yun Introcan; Right; Antecubital; Floater Operator; 1; None; 3.15% Chlorhexidine with IPA; 10/10/21; 0600 10/08/21 1506 by Prema Honeycutt, RN 10/10/21 0600 by Gricelda Kincaid, KENN documented in this encounter Social History Tobacco Use Types Packs/Day Years Used Date Smoking Tobacco: Some Days Cigarettes 0.3 35 Smokeless Tobacco: Never Alcohol Use Standard Drinks/Week Comments No 0 (1 standard drink = 0.6 oz pur e alcohol) Overall Financial Resource Strain (CARDI) Answe r Date Recorded How hard is [...] 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 Chart and Nursing Notes reviewed, including NPO status and Medication History. Additional ROS/History Findings: NPO per guidelines, HCV hx, QUIROZ, cirrhosis, recent GIB, COPD, former smoker. Allergies Allergen Reactions ??? Metoclopramide Nausea Only, [...] for chills and fever. HENT: Negative for sore throat. Respiratory: Positive for hemoptysis. Negative for cough, sputum production, shortness of breath and wheezing. Cardiovascular: Negative for chest pain and palpitations. Gastrointestinal: Positive for blood in stool. Psychiatric/Behavioral: The patient is nervous/anxious. Past Medical History: Diagnosis Date ??? Anemia [...] Dr Amelia Tijerina and notes from [facility] patient misconstrued information to several [...] by Starr Paige MD) ??? Thyroid disease Relevant Problems Anesthesia (+) HUEY (obstructive sleep apnea) PULMONARY (+) COPD (chronic obstructive pulmonary disease) (HCC-CMS) (HCC) (+) Dyspnea (+) Mild persistent asthma without complication (+) HUEY (obstructive sleep apnea) CARDIOVASCULAR (+) 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HCC-CMS) (HCC) (+) Portal vein thrombosis (+) Splenic vein thrombosis /Renal (+) Cirrhosis of liver (HCC-CMS) (HCC) (+) Nephrolithiasis (+) Portal vein thrombosis ENDO/GI (+) Hypothyroidism Other (+) Hypersplenism (+) Hypersplenism syndrome Physical Exam Airway Mallampati: III Neck ROM: full Cardiovascular - normal exam Dental Comments: Multiple missing teeth Pulmonary - normal exam Abdominal (+) obese Anesthesia Plan ASA 3 Anesthesia Type - general Block for post-op pain? No Anesthesia plan and risks discussed. Informed consent obtained from patient. Code status discussed? No The preoperative history and physical which was performed within 30 days of this procedure, has been reviewed and the clinically appropriate elements of the physical examination have been repeated. There are no changes to the documented history and physical or, if so, such changes are documented inthis note PAT Note Notes from 09/09/21 through 10/09/21 No notes of this type exist for this encounter. * Anesthesia Postprocedure Evaluation - Jesus Scott MD - 10/09/2021 1324 EST Patient: Tara Yun Vital signs were reviewed with the recovery nurse. Complete vitals [facility] Last Pain Score - Numeric Pain Level (Scale 1-10): 8 Type of Anesthesia - general Anesthesia Post Evaluation Post-procedure vitals reviewed and are stable. Level of consciousness: responsive/arousable to verbal stimuli Temperature status: normothermia Respiratory status: nasal cannula and stable Cardiovascular status: stable and within patient's normal range Hydration status: adequate Nausea/Vomiting: none Pain management: adequate Post-Op Assessment: patient tolerated procedure well with no complications Patient participation: able to participate Disposition: inpatient Anesthesia Complications: No apparent anesthesia complications documented in this encounter Plan of Treatment Upcoming Encounters Date Type Department Care Team (Late st Contact Info) Description 01/04/2025 13:00 EST Office Visit [facility] Ophthalmology - [address] [phone] Gagandeep Rome MD [address] [place] [address] 5 [place] [address] 02/11/2025 13:30 EDT Telemedicine [facility] Hematology & Oncology [address] [address] Dana Padilla MD [address] [place] [address] 2 [place] [address] documented as of this encounter Visit Diagnoses Not on filedocumented in this encounter Administered Medications Inactive Administered Medications - up to 3 most recent administrations Medication Order MAR Action Action Date Dose Rate Site ketAMINE in NaCl, iso-osmotic (KETALAR) 50 mg/5 mL (10 mg/mL) IV injection intravenous, PRN, Starting on Tue10/09/21 at 1308, Until Tue10/09/21 at 1324, Routine, Anesthesia Intraprocedure Given 10/09/2021 13:08 EST 15 mg midazolam (PF) (VERSED) injection intravenous, PRN, Starting on Tue10/09/21 at 1306, Until Tue10/09/21 at 1324, Routine, Anesthesia Intraprocedure Given 10/09/2021 13:06 EST 1 mg Given 10/09/2021 13:02 EST 1 mg propOFol (DIPRIVAN) injection intravenous, PRN, Starting on Tue10/09/21 at 1308, Until Tue10/09/21 at 1324, Routine, Anesthesia Intraprocedure Given 10/09/2021 13:19 EST 20 mg Given 10/09/2021 13:17 EST 30 mg Given 10/09/2021 13:13 EST 30 mg documented in this encounter Orders Medications Ordered That Luc ht Not Have Been Administered Count Last Ordered Date First Ordered Date ketAMINE in NaCl, iso-osmoti c (KETALAR) 50 mg/5 mL (10 mg/mL) IV injection 1 10/09/2021 documented in this encounter Care Teams Strip Catcher Relationship Specialty Start Date End Date Emigdio Veronica MD [address] [place] [address] PCP - General Internal Medicine - Primary Care 05/22/20 02/21/24 Starr Paige MD [address] [place] [phone] Hematology 10/08/21 06/09/22 documented as of this encounter
--- OUTSIDE RECORDS SUMMARY | 2024-11-22 17:11 | XMS_ITS | Encounter Summary ---
Author Organization [facility] Address [address] [place] [address] Care Team Providers Care Skid Man Name Role Phone Emigdio Veronica MD Primary Care Provider + Encounter Details Date Type Department Care Team (Late st Contact Info) Description 09/18/2021 Orders Only [facility] Interventional Rad [facility] - [facility] [address] [place] [address] Irene Monte, RN [address] [place] [address] Hypersplenism (Primary Dx) Social History Tobacco Use Types Packs/Day Years Used Date Smoking Tobacco: Former Cigarettes 0.3 35 Smokeless Tobacco: Never Alcohol [...] 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 Answer Date of Assessment Author No 06/29/2021 21:11 Barbara Kim RN * Are you blind or do you have serious difficulty seeing, even when wearing glasses? Answer Date of Assessment Author No 06/29/2021 21:11 Barbara Kim RN * Do you have serious difficulty walking or climbing stairs? (5 years old or older) Answer Date of Assessment Author No 06/29/2021 21:11 Barbara Kim RN * Do you have difficulty dressing or bathing? (5 years old or older) Answer Date of Assessment Author No 06/29/2021 21:11 Barbara Kim, KENN * Because of a physical, mental, or emotional condition, do you have difficulty doing errands alone such as visiting a doctor's office or shopping? (15 years old or older) Answer Date of Assessment Author No 06/29/2021 21:11 Barbara Kim RN documented as of this encounter Mental Status * Because of a physical, mental, or emotional condition, do you have serious difficulty concentrating, remembering, or making decisions? (5 years old or older) Answer Entry Date Author No 06/29/2021 21:11 Barbara Kim RN documented in this encounter Plan of Treatment Upcoming Encounters Date Type Department Care Team (Late st Contact Info) Description 01/04/2025 13:00 EST Office Visit [facility] Ophthalmology - [address] [phone] Gagandeep Rome MD 111 [facility], [facility] 5 [place] [phone] 02/11/2025 13:30 EDT Telemedicine [facility] Hematology & Oncology - [address] [phone] Dana Padilla MD 111 [facility], [facility] 2 [place] [phone] documented as of this encounter Visit Diagnoses Diagnosis Hypersplenism- Primary documented in this encounter Orders Lab Orders Without Results Count Last Ordered D ate First Ordered Date COMPLETE BLOOD COUNT 1 09/18/2021 documented in this encounter Care Teams Skid Man Relationship Specialty Start Date End Date Emigdio Veronica MD [address] [place] [phone] PCP - General Internal Medicine - Primary Care 05/22/20 02/21/24 documented as of this encounter
--- OUTSIDE RECORDS SUMMARY | 2024-11-22 17:11 | XMS_ITS | Encounter Summary ---
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 Yoo on 09/28/21 -pt aware she needs to have labs (CBC & Platelet Mapping) done prior -pt placement notified pt will require admission post procedure. Dr Dominic Camejo will admit under the hospitalist service. documented in this encounter Plan of Treatment Upcoming Encounters Date Type Department Care Team (Late st Contact Info) Description 01/04/2025 13:00 EST Office Visit [facility] Ophthalmology - [address] [phone] Gagandeep Rome MD [address] [place] [address] 5 [place] [phone] 02/11/2025 13:30 EDT Telemedicine [facility] Hematology & Oncology [address] [phone] Dana Padilla MD [address] [place] [address], [facility] [address] [place] [address] documented as of this encounter Visit Diagnoses Not on filedocumented in this encounter Care Teams Gift Officer Relationship Specialty Start Date End Date Emigdio Veronica MD [address] [place] [phone] PCP - General Internal Medicine - Primary Care 05/22/20 02/21/24 documented as of this encounter
--- OUTSIDE RECORDS SUMMARY | 2024-11-22 17:11 | XMS_ITS | Encounter Summary ---
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 [address] [place], [place] [phone] Dana Padilla MD 111 [facility], [address] [place] [address] documented as of this encounter Procedures Procedure Name Priority Date/Time Associated Diagnosis Comments ZZCOVID-19 TEST [facility] PCR Today 09/25/2021 9:39 EDT Pre-procedure lab exam COVID-19 TESTING Routine 09/25/2021 9:39 EDT Pre-procedure lab exam documented in this encounter Results * COVID-19 TEST [facility] PCR (09/25/2021 9:39 EDT) Swab BOTH ANTERIOR NARES / Unknown Swab / Unknown 09/25/2021 9:39 EDT 09/25/2021 9:39 EDT us Ant Yoo MD MICROBIOLOGY - GENER AL ORDERABLES Final Result [facility] [address] [place] [address] * COVID-19 TESTING (09/25/2021 9:39 EDT) COVID-19 rt-PCR Result Negative Negative 09/26/2021 15:23 EDT [facility] Comment: This test has not been FDA cleared or approved. This test has been authorized by FDA under an EUA for use by authorized laboratories. This test has been authorized only for detection of nucleic acid from 2018-, not for any other viruses or pathogens. [...] clinical observations, patient history, and epidemiological information. This test was developed and its performance characteristics determined by [facility]. It has not been cleared or approved by the US Food and Drug Administration. FDA does not require this test to go through premarket FDA review. This test is used for clinical purposes. It should not be regarded as investigational or for research. This laboratory is certified under the Clinical Laboratory Improvement Amendments (CLIA) as qualified to perform high complexity clinical laboratory testing. This test is based on the [facility] COVID-19 Emergency Use Authorization (EUA) assay, with minor modification as defined by the FDA Performed on the [employer] Pro RT-PCR System. Performing Lab [facility] 09/26/2021 15:23 EDT [facility] Swab BOTH ANTERIOR NARES / Unknown Swab / Unknown 09/25/2021 9:39 EDT 09/25/2021 9:39 EDT Ant Yoo MD MICROBIOLOGY - [facility] AL ORDERABLES Final Result [facility] [address] [place] [address] documented in this encounter Visit Diagnoses Diagnosis Pre-procedure lab exam Pre-procedural laboratory examination documented in this encounter Care Teams Operations Processor Relationship Specialty Start Date End Date Emigdio Veronica MD [address] [place] [address] PCP - General Internal Medicine - Primary Care 05/22/20 02/21/24 documented as of this encounter
--- OUTSIDE RECORDS SUMMARY | 2024-11-22 17:11 | XMS_ITS | Encounter Summary ---
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 Answer Date of Assessment Author No 09/29/2021 15:00 Edie Langley RN * Are you blind or do you have serious difficulty seeing, even when wearing glasses? Answer Date of Assessment Author No 09/29/2021 15:00 Edie Langley RN * Do you have serious difficulty walking or climbing stairs? (5 years old or older) Answer Date of Assessment Author No 09/29/2021 15:00 Edie Langley RN * Do you have difficulty dressing or bathing? (5 years old or older) Answer Date of Assessment Author No 09/29/2021 15:00 Edie Langley RN * Because of a physical, mental, or emotional condition, do you have difficulty doing errands alone such as visiting a doctor's office or shopping? (15 years old or older) Answer Date of Assessment Author No 09/29/2021 15:00 Edie Langley RN documented as of this encounter Mental Status * Because of a physical, mental, or emotional condition, do you have serious difficulty concentrating, remembering, or making decisions? (5 years old or older) Answer Entry Date Author No 09/29/2021 15:00 Edie Langley RN documented in this encounter Miscellaneous Notes * Telephone Encounter - Karol Armstrong RN - 10/06/2021 1414 EST Hospital Discharge Follow Up: Reason for admission: Partial Splenic Embolization Symptoms improving? no - still having a lot of pain Discharge instructions available? yes Medications Reviewed/prescriptions filled? yes Support at home? yes Home health service/issues? Yes patient states she was told she was going to get home health, but could not find order Questions about discharge instructions? yes Follow-up visit scheduled? yes Education/Plan: Follow up with Dr Veronica 10/08 if unable to get in hematology this week KAROL ARMSTRONG RN 10/06/2021 Patient reports continued pain and has a couple hydromorphone left. She still hasn't eaten any solid food since the procedure. She has been able to keep down 1 carnation instant breakfast this morning. She is passing flatus and urinating a few times a day. She still feels she is not getting enough oxygen at night, is using her baseline 2L via nasal cannula, but may try it in the mouth to see i f that helps. Patient reached out to hematology this morning. * Telephone Encounter - Noemi Hall - 10/06/2021 1322 EST Reason for Call: Hospital Discharge Follow Up Summary/Symptoms: patient was discharged from the hospital on Tuesday and is follow ing up. patient states she is in a lot of pain and would like to speak with nurse or provider. Patient says she was given confusing information on who will be doing her follow up Onset and Duration: tuesday Does the patient have a computer, laptop or smart phone with high speed & video capability? N/A If so, would they be interested in doing a video visit via Zoom? N/A Appointment Offered? No Noemi Hall 10/06/2021 13:22 documented in this encounter Plan of Treatment Upcoming Encounters Date Type Department Care Team (Late st Contact Info) Description 01/04/2025 13:00 EST Office Visit [facility] Ophthalmology - [address] [phone] Gagandeep Rome MD [address] [place] [address], [facility] [address] [place] [phone] 02/11/2025 13:30 EDT Telemedicine [facility] Hematology & Oncology - [address] [phone] Dana Padilla MD [address] [place] [address], [address] [place] [phone] documented as of this encounter Visit Diagnoses Not on filedocumented in this encounter Care Teams Dealer Sales Manager Relationship Specialty Start Date End Date Emigdio Veronica MD [address] [place] [phone] PCP - General Internal Medicine - Primary Care 05/22/20 02/21/24 documented as of this encounter
--- OUTSIDE RECORDS SUMMARY | 2024-11-22 17:11 | XMS_ITS | Encounter Summary ---
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 Not on [...] Office Visit [facility] Ophthalmology - [address] [id number] Gagandeep Rome MD [address] [facility], [address] [place] [phone] 02/11/2025 13:30 EDT Telemedicine [facility] Hematology & Oncology - [address] [id number] Dana Padilla MD [address], [address] [place] [phone] documented as of this encounter Procedures Procedure Name Priority Date/Time Associated Diagnosis Comments COMPLETE BLOOD COUNT STAT 09/21/2021 11:04 EDT Pancytopenia (HCC) (HCC-[facility]) Portal vein thrombosis COMPREHENSIVE METABOLIC PANEL (CMP) Routine 09/21/2021 11:04 EDT Bilateral leg edema documented in this encounter Results * (ABNORMAL) COMPREHENSIVE METABOLIC PANEL (CMP) (09/21/2021 11:04 EDT) Sodium 140 136 - 145 mmol/L 09/21/2021 12:08 [facility] Potassium 4.5 3.5 - 5.0 mEq/L 09/21/2021 12:08 [facility] Chloride 99 96 - 110 mEq/L 09/21/2021 12:08 [facility] CO2 Total 29 22 - 32 mEq/L 09/21/2021 12:08 [facility] Glucose 88 70 - 100 mg/dL 09/21/2021 12:08 [facility] BUN 20 10 - 26 mg/dL 09/21/2021 12:08 [facility] Creatinine 1.17(H) 0.52 - 1.04 mg/dL 09/21/2021 12:08 [facility] eGFR 50(L) >60 mL/min/1.7 3m2 09/21/2021 12:08 [facility] Comment:eGFR calculated lobito coppola CKD-EPI equation for non- Americans. Multiply eGFR by 1.16 for patients. Total Protein 7.2 6.3 - 8.2 g/dL 09/21/2021 12:08 [facility] Albumin 4.2 3.4 - 4.9 g/dL 09/21/2021 12:08 [facility] Alkaline Phosphatase 120 38 - 126 U/L 09/21/2021 12:08 [facility] AST 26 15 - 46 U/L 09/21/2021 12:08 [facility] ALT 15 <35 U/L 09/21/2021 12:08 [facility] Bilirubin, Total 0.6 <1.4 mg/dL 09/21/20 12:08 [facility] Calcium 9.2 8.5 - 10.5 mg/dL 09/21/2021 12:08 [facility] Albumin/Globulin Ratio 1.4 1.0 - 2.5 09/21/2021 12:08 [facility] Anion Gap 12 8 - 16 09/21/2021 12:08 [facility] Blood VENOUS BLOOD / Unknown Venipuncture / Unknown 09/21/2021 11:04 EDT 09/21/2021 11:27 EDT Scottie Campuzano PA-C CHEMISTRY & B LOOD GAS ORDERABLES Final Result [facility] [address] [place] [address] * (ABNORMAL) COMPLETE BLOOD COUNT (09/21/2021 11:04 EDT) WBC 0.84(LL) 4.00 - 12.40 K/cmm 09/21/2021 11:55 EDT [facility] RBC 3.56(L) 3.86 - 5.04 M/cmm 09/21/2021 11:55 T [facility] Hemoglobin 9.8(L) 11.6 - 15.2 gm/dL 09/21/2021 11:55 T [facility] HCT 30.9(L) 34.9 - 44.4 % 09/21/2021 11:55 [facility] MCV 87 81 - 98 fl 09/21/2021 11:55 EDT [facility] MCH 27.5 26.7 - 33.3 pg 09/21/2021 11:55 [facility] MCHC 31.7(L) 32.1 - 35.9 gm/dL 09/21/2021 11:55 [facility] RDW-CV 15.3(H) <14.7 % 09/21/2021 11:55 [facility] RDW-SD 48.8 <50.4 fl 09/21/2021 11:55 [facility] PLT 39(L) 141 - 377 K/cmm 09/21/2021 11:55 [facility] MPV 10.5 9.5 - 12.7 fl 09/21/2021 11:55 [facility] Blood VENOUS BLOOD / Unknown Venipuncture / Unknown 09/21/2021 11:04 EDT 09/21/2021 11:22 EDT us Starr Paige MD HEMATOLOGY & PF4 ORDERABLES Final Result [facility] [address] [place] [address] documented in this encounter Visit Diagnoses Diagnosis Pancytopenia (HCC-CMS) Other pancytopenia Portal vein thrombosis Hypersplenism Bilateral leg edema Edema documented in this encounter Care Teams Repairer Art Objects Relationship Specialty Start Date End Date Emigdio Veronica MD [address] [place] [phone] PCP - General Internal Medicine - Primary Care 05/22/20 02/21/24 documented as of this encounter
--- OUTSIDE RECORDS SUMMARY | 2024-11-22 17:11 | XMS_ITS | Encounter Summary ---
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 Name Role Phone Emigdio Veronica MD Primary Care Provider + Reason for Referral * Radiology Services (Routine/Next Available) - Specialty Report Received Specialty Diagnoses / Procedures Referred By [facility] Referred To Contact Diagnoses Hypersplenism Procedures IR EMBOLIZATION RI VASCULAR EMBOLIZE/OCCLUDE ORGAN TUMOR INFARCT Ant Yoo MD Phone: tel: fax: [facility] Referral ID Status Reason Start Date Expiration Date V isits Requested Visits Authorized [id number] Specialty Report Received 09/16/2021 1 1 Reason for Visit * Auth/Cert Specialty Diagnoses / Procedures Referred By [facility] Referred To Contact Diagnoses Hypersplenism At risk for inadequate pain control Pain crisis Referral ID Status Reason Start Date Expiration Date Visits Re quested Visits Authorized [id number] 1 1 Encounter Details Date Type Department Care Team (Late st Contact Info) Description 09/28/2021 16:07 EST - 10/02/2021 15:00 EST Hospital Encounter 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 file Not on file Not o n file documented as of this encounter Last Filed Vital Signs Vital Sign Reading Time Taken Comments Blood Pressure 120/72 10/02/2021 0610 EST Pulse 63 09/28/2021 1230 EST Temperature 36.7 ??C (98.1 ??F) 10/02/2021 0610 EST Respiratory Rate 16 10/02/2021 0859 EST Oxygen Saturation 94% 10/02/2021 0859 EST Inhaled Oxygen Concentration - - Weight 93 kg (205 lb) 09/28/2021 0710 EST Height 162.6 cm (5' 4) 09/28/2021 0710 EST Body Mass Index 35.19 09/28/2021 0710 EST documented in this encounter Functional Status [...] Answer Entry Date Author No 09/29/2021 15:00 EST Edie Gregory RN documented in this encounter Discharge Summaries * Bull Augustine MD - 10/02/2021 1313 EST HOSPITAL MEDICINE DISCHARGE SUMMARY Primary Care Provider: Emigdio Veronica Attending Physician: Bull Augustine MD Admit Date: 09/29/21 Discharge Date: 10/02/2021 Disposition (location): home Condition at Discharge: Improved Reason for Admission (chief complaint): Pain Crisis Principal/Final Diagnosis: Hypersplenism Additional Problems Managed in the Hospital: Active Hospital Problems Diagnosis Date Noted ??? *Hypersplenism 09/28/2021 ??? 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HCC-CMS) (HCC) 10/01/2021 ??? Pain crisis 09/29/2021 ??? At risk for inadequate pain control 09/28/2021 Resolved Hospital Problems No resolved problems to display. Transition of care: [place] Transition of Care report automatically routed to PCP office on discharge.Additional handoff communication performed via: Secure [facility] Staff Message Clinical Issues Needing Follow-up #Partial Splenic Artery Embolization - PO Dilaudid 2mg q3h PRN for 10 tabs. - amoxicillin 500mg q8h (last dose 10/03) - f/u Heme (referral placed) - Anticoagulation on discharge: No - Changes to goals care at time of discharge (if applicable): n/a Hospital Course: Tara Yun??is a 61 y.o.??female??with a PMHx of??decompensated QUIROZ cirrhosis (portal htn, hepatic encephalopathy) w/ associated thrombocytopenia/hypersplenism, portal vein thrombosis, Hep C, asthma, COPD (no home O2), HUEY not on CPAP, hypothyroidism, & anxiety/depression??who presented as a direct transfer to the floor after planned outpt partial splenic embolization by Interventional Radiology.??Successful partial splenic embolization. VSS remained stable throughout hospitalization. Pt struggled with pain control during her hospitalization. Pain was initially controlled w/ combination IV & PO dilaudid, then transitioned to onlyPO dilaudid prior to discharge. Given persistent/severe abdominal pain, repeat CT A/P w/ contrast was performed showing evidence of successful partial spleen embolization w/ some associated fat stranding but w/o organized fluid collection. Her abdominal pain was improving, did have some ongoing hypoxia (uses O2 due to her COPD at night) so had O2 eval that revealed no need for additional home O2 beyond her normal. She was discharged with 5 day course of amoxicillin, and pain management as above. Relevant Imaging/Procedures Performed: IR EMBOLIZATION Result Date: 09/29/2021 Successful partial splenic embolization. Dr. Yoo was present for and supervised the entire procedure. I have personally reviewed the images and the above interpretation and agree with the findings. Imaging CT ABDOMEN PELVIS W CONTRAST Result Date: 10/01/2021 1. There has been interval splenic artery embolization with infarction of greater than 75% of the spleen and a small volume of perisplenic free fluid with extensive fat stranding. There is no organized fluid collection. 2. Redemonstrated nonocclusive thrombus of the main portal and splenic veins. 3. Trace left pleural effusion and mild left basilar atelectasis. No additional acute findings in theabdomen or pelvis. Full report to follow in the morning. These findings were discussed by phone with Fausto Coats by Alba Denise MD on 10/01/2021 6:34 PM. IR EMBOLIZATION Result Date: 09/29/2021 Successful partial splenic embolization. Dr. Yoo was present for and supervised the entire procedure. I have personally reviewed the images and the above interpretation and agree with the findings. Results Pending at Discharge: Test results still pending from this admission None Lab Results Component Value Date HGBA1C 5.1 03/06/2020 Lab Results Component Value Date/Time HGBA1C 5.1 03/06/2020 08:17 Upcoming Appointments Oct 20, 2021 15:45 Office Visit Medium with Emigdio Veronica MD [facility] - [place] ([facility]) 2 [facility] [id number] Nov 04, 2021 15:00 LAB VISIT with BLOOD DOCTOR, [facility] HEM ONC [facility] Hematology & Oncology - [facility] ([facility]) [address] [place] [id number] Nov 04, 2021 15:40 Follow Up Visit with Brenda Joseph APRN [facility] Hematology & Oncology - [place] ([facility]) [address] [place] [address] Dec 24, 2021 8:15 Office Visit Medium with Emigdio Veronica MD [facility] - [place] ([facility]) 2 [facility] [place] [address] Follow-up appointments and procedures Amb Consult/Follow Up Primary Care Physician Reason for Request: f/u after hosp for pain control after partial splenic a. embolization Authorizing Provider: Lc Luis MD Amb Consult/Follow Up Hematology Reason for Request: f/u after hosp for pain control s/p partial spleen embolization Authorizing Provider: Lc Luis MD Nicholas Tooley, MD and Meghna German MD 10/01/21 11:14 ATTENDING ATTESTATION: Patient was seen and examined on the day of discharge. I personally reviewed the hospital course and diagnostic testing. I discussed the case with the resident/IVA. I agree with and edited (in blue) the findings and plan of care as documented in the note above. Plans at the time of discharge were discussed with the patient and will be forwarded to their PCP. Any questions were answered and there were no barriers to care. I personally spent a total of 45 minutes on this discharge and in the care of this patient today with >50% on the unit in counseling and coordinating care as described above. Bull Augustine MD Internal Medicine Hospitalist 10/02/2021 16:34 documented in this encounter Discharge Instructions * Discharge Instructions* Tayler Vanessa RN - 09/28/2021 10:16 EST Going Home after Chemoembolization Activities - What Can I Do? Driving - This will depend upon your vision and your doctor's recommendation. If you are taking prescription pain medications we recommend you do not drive. These medications may make you sleepy. Work - You may not return to work until your doctor has approved your return. Sexual Activity - This will depend upon your doctor's recommendation. Activity/Supervisor Plate Forming/Hobbies - How much you can do is determined by your level of discomfort and fatigue. Although there is very little outward evidence that you've had an intervention, your body has gone through some changes. You will need to take things slowly. Gradually work back into your activities; always within the restrictions set by your doctor. Guide your activities by how your body feels. Showering/Bathing - Do not take baths or emerge in hot tubs or Jacuzzis for 5 days for protection of the puncture site. After those 5 days, you may resume your normal bathing habits. If you note any signs of bleeding, such as bulging under the skin the size of a golf ball, put direct pressure to the area, call your doctor, and go to the nearest emergency room or call 911 for assistance. Dressing - Leave the sterile dressing on for 24 hours, then shower and clean the area daily. Place a clean Band-Aid over the site each day for 5 days. Restrictions/Limitations - Until seen by your doctor at your follow-up appointment, you should avoid the following: ?? Contact sports. Weight lifting ?? Strenuous exercise ?? Limit lifting to no more than 20-25 pounds ?? Limit the amount of stooping or bending over - Try to squat if you need to pick things up ?? Avoid straining ?? Avoid things that may raise your blood pressure ?? Avoid constipation Diet - Resume the diet you were on before the procedure. Try to increase the amount of fiber you eat and the water you drink because you DO NOT want to strain to have a bowel movement. You should tryto drink about 8 glasses of water a day. If you have questions about foods rich in fiber please consult with your nurse. Constipation - What to Do! Increase your fiber and water intake, as noted above. Walk, be active; exercise as tolerated within restrictions. If you become constipated you can get a variety of stool softeners at the drugstore. Call Your Doctor Immediately If You Have - ?? Continued nausea or vomiting ?? Increased sleepiness ?? Change in behavior ?? Pain not controlled with over the counter medications ?? Constipation unrelieved by stool softeners and increased fiber and water intake Medications - Continue previous medications Follow-Up Imaging - Our office will contact you to arrange the necessary follow- up imaging IF YOU HAVE ANY QUESTIONS OR CONCERNS REGARDING THE PROCEDURE, PLEASE CALL THE INTERVENTIONAL RADIOLOGY CLINIC AT . SOMEONE IS AVAILABLE TO TAKE YOUR CALL 24 HOURS A DAY. RADIOLOGY PATIENT EDUCATION INSTRUCTIONS FOLLOWING AN ANGIOGRAM OF THE ABDOMEN Procedure Wound Site - left Radial Dr. Ant Yoo MD has completed an angiogram of your Abdomen. 1. Please drink extra fluids today (6-8 glasses). This will encourage the excretion of the contrastdye material. 2. Do not drive or make any legal decisions today as you have received medications. 3. If you feel a tingling sensation or lack of feeling in the affected extremity, call your local doctor. 4. If you note any signs of bleeding, such as bulging under the skin the size of a golf ball, put direct pressure to the area, call your doctor, and go to the nearest emergency room or call 911 for assistance. 5. You may resume all of your normal dietary and medication requirements. 6. Leave the sterile dressing on for 24 hours, then shower and clean the area daily. Place a clean Band-Aid over the site each day for 5 days. 7. Do not take a tub bath, go in a hot tub or submerge in water for 5 days. 8. Do not put lotions or powder on the area for 5 days. 9. Report any signs of infection (redness, swelling, discharge and fever) to your doctor. 10. No lifting > 20 lbs. or heavy exertion for 5 days after procedure. CLOSURE DEVICE TR Band - This compression device will be removed prior to your discharge. Follow the instructions for wound care above. IF YOU HAVE ANY QUESTIONS OR CONCERNS REGARDING THE PROCEDURE, PLEASE CALL THE INTERVENTIONAL RADIOLOGY CLINIC AT . SOMEONE IS AVAILABLE TO TAKE YOUR CALL 24 HOURS A DAY. * Discharge Instr - AVS First Page* Lc Luis MD - 10/01/2021 11:33 EST You were seen in the hospital for pain control after splenic artery embolization. Please take the prescribed pain medications as prescribed. We have also given you a script for antibiotics to help prevent infection after the procedure, please take these as prescribed until the pills run out. Please follow-up with your PCP within the next week or so. documented in this encounter Medications at Time of Discharge OXYGEN-AIR DELIVERY SYSTEMS MISCIndications:2 L @ night via nC 2 L by misc (non-drug; combo route) route at bedtime. albuterol (ACCUNEB) 2.5 mg /3 mL (0.083 %) nebulizer solution USE 1 VIAL VIA NEBULIZER 4 TIMES A DAY NEEDED 05/07/2020 1 albuterol 90 mcg/actuation inhaler Inhale 1-2 Puffs as directed every 4 hours as needed for Wheezing. 1 Inhaler 04/13/2021 3 amoxicillin (AMOXIL) 500 mg capsule Take 1 capsule by mouth every 8 hours. 8 capsule 10/01/2021 1 furosemide (LASIX) 20 mg tablet Take 1 every morning for fluid in legs; if swelling is worse than usual then take 2 every morning. Max daily dose is 40 mg per day. 180 Tablet 1 09/18/2021 2 HYDROmorphone (DILAUDID) 2 mg tablet Take 1 Tablet by mouth every 3 hours as needed for Pain. Early fill for travel Daily Max: 16 mg 20 Tablet 10/01/2021 1 HYDROmorphone (DILAUDID) 4 mg tablet Take [...] needed for Nausea. 21 Tablet 10/01/2021 2 sertraline (ZOLOFT) 50 mg tablet Take 1 Tab by mouth daily. 90 Tab 1 04/10/2021 1 spironolactone (ALDACTONE) 50 mg tablet TAKE 1 TABLET BY MOUTH EVERY DAY 90 Tablet 1 09/09/2021 2 SYMBICORT 160-4.5 mcg/actuation HFA aerosol inhaler inhalerIndications:C OPD with asthma ([facility]) Inhale 2 Puffs as directed daily. 1 Inhaler 1 07/08/2021 1 traZODone (DESYREL) 100 mg tablet Take 1 Tablet by mouth at bedtime. 8 Tablet 10/02/2021 1 traZODone (DESYREL) 100 mg tablet Take 2 and 1/2 tabs at bedtime. 75 Tablet 2 07/22/2021 1 documented as of this encounter Ordered Prescriptions Prescription Sig Dispense Quantity Refills Last Filled Start Date End Date traZODone (DESYREL) 100 mg tablet Take 1 Tablet by mouth at bedtime. 8 Tablet 10/02/2021 1 HYDROmorphone (DILAUDID) 4 mg tablet Take 0.5 Tablets by mouth every 4 hours as needed for Pain. Daily Max: 12 mg 10 Tablet 10/02/2021 1 HYDROmorphone (DILAUDID) 2 mg tablet Take 1 Tablet by mouth every 3 hours as needed for Pain. Early fill for travel Daily Max: 16 mg 20 Tablet 10/01/2021 1 amoxicillin (AMOXIL) 500 mg capsule Take 1 capsule by mouth every 8 hours. 8 capsule 10/01/2021 1 ondansetron (ZOFRAN-ODT) 4 mg disintegrating tablet Take 1 Tablet by mouth every 4 to 6 hours as needed for Nausea. 21 Tablet 10/01/2021 2 documented in this encounter Discharge Disposition Disposition Code Departure Means Destination Home or Self [facility] documented in this encounter Progress Notes * Poonam Jauregui, RT - 10/02/2021 1336 EST Home Oxygen Evaluation Name: Tara Camacho Yun Date of : 1960 PCP: Emigdio Veronica Expiration Date: 10/04/2021 Inpatient Evaluation (results were reported within the two days before discharge). Date: 10/02/21 Time: 1330 EXERCISE EVALUATION: O2 Sat on room air at rest: 93% O2 Sat during exercise on room air: 89% (Patient walked 3/4 length of M5 hallway, about what she does at home) Recommendations: Patient doesn't qualify for Home O2 AT REST EVALUATION: O2 sat on room air taken at rest (awake). Recommendations: Patient doesn't qualify for Home O2 (other than previously prescribed nocturnal O2) RT OLIVIA 10/02/2021 * Poonam Jauregui RT - 10/02/2021 1050 EST Respiratory Consult/Progress Note Indications for Respiratory therapy: COPD Data Vitals: Heart Rate: 98 BPM, Resp: 16, SpO2: 94 % FIO2/O2 Device: O2 Flow Rate (L/min): 2 l/min, O2 Device: Nasal cannula, RT Orders: Duoneb Q4 PRN Protocol Scoring: Bronchodilator/Inhalation Therapy Frequency Bronchodialator - Clinical Indications: History of COPD Breath Sounds: Any abnormal BS decreased Response: Mild response, increase subjective per FINGERPRINT CLASSIFIER Pulse: <100 Resp Rate: <18 SOB: With exertion Total Score: 3 Comment:: PRN Frequency Based On Total Score: 0-4 = PRN 5-7 = QID 8-10 = Q4H 11-12 = Q2H Action/Events Morning treatment given. QID bronchodilator treatments are not indicated and were changed to PRN, pt in agreement with this. Response/Results Patient independent with inhalers, nursing to administer. PRN Duoneb per RT scoring protocol. RT OLIVIA 10/02/21 * Fausto Coats III, MD - 10/01/2021 1732 EST Interventional Radiology Progress Note Service Date: 10/01/2021 Admit Date: 09/28/2021 16:07 Post Procedure Day: 3 (09/28/2021) Procedure: Partial splenic embolization Overnight Events: ?? NAOE Subjective Pt reports continued predominantly LUQ abdominal pain with associated nausea and chills. Still unable to tolerate PO intake and requiring IV pain medications. Objective Vital Signs BP 127/71 (BP Cuff Location: Left arm, BP Patient Position: Semi fowlers) Pulse 63 Temp 36.9 ??C (98.4 ??F) (Tympanic) Resp 17 Ht 162.6 cm (64) Wt 93 kg (205 lb) SpO2 90% BMI 35.19 kg/m?? Physical Exam General Appearance: NAD Lung: Non-labored regular respiration Abdomen: Soft, TTP in LUQ Extremities: WWP Puncture site(s)/Drain(s): Bandage c/d/i Skin: No bruising or swelling Assessment 61 y.o. female with history of cirrhosis, non-occlusive portal vein thrombus and hypersplenism, day# 3 s/p partial spenic embolization. Plan Persistent pain requiring IV medications and inability to tolerate PO intake longer than anticipated for post-embolization syndrome without signs of improvement. -Will proceed with CT abd/pelvis for further evaluation. Principal Problem: Hypersplenism Active Problems: At risk for inadequate pain control Pain crisis 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HCC-CMS) (HCC) Fausto Coats III, MD Interventional Radiology, Pager #[phone], 10/01/2021 17:33 Cosigned by Ant Yoo MD at 10/01/2021 21:38 EST * Helen Sood, RT - 10/01/2021 1700 EST Respiratory Consult/Progress Note Indications for Respiratory therapy: COPD Data Vitals: Heart Rate: (!) 111 BPM, Resp: 17, SpO2: 90 % FIO2/O2 Device: O2 Device: None RT Orders: BID Symbicort QID Duoneb PRN Albuterol MDI Protocol Scoring: Bronchodilator/Inhalation Therapy Frequency Bronchodialator - Clinical Indications: History of COPD Breath Sounds: Any abnormal BS decreased Response: Significant response, measurable improvement with PF, RR, or BS Pulse: >100 Resp Rate: 18-25 SOB: With exertion Total Score: 6 Comment:: QID Action/Events Respiratory events; Patient tolerated treatments well. She has some trouble with the taste of the nebulizer, but otherwise does just fine with them. Per protocol, she does score out for QID treatments. RT JESSEE 10/01/21 * Bull Augustine MD - 10/01/2021 1600 EST Medicine Progress Note Service Date: 10/01/2021 Admit Date: 09/28/2021 Length of Stay: 2 Reason for Admission: 61 y.o. female admitted with a chief complaint of direct admit s/p splenic embolization and now with a principal diagnosis of partial splenic embolization. 24 Hour Events: - x1 IV Dilaudid overnight for pain crisis, additional PO x1 as well Subjective/Objective Subjective This AM pt states mild improvement in pain, subjectively feels better. Ambulating ok though somewhat painful given abdominal pain. No change in pain quality/location. Denies f/c/n/v/d, h/a, SOB, chest pain, palpitations. Review of Systems A ten point review of systems was performed and was negative except for pertinent positives noted in the HPI Objective Vital Signs BP 131/70 (BP Cuff Location: Right arm, BP Patient Position: Sitting) Pulse 63 Temp 37.1 ??C (98.8 ??F) (Oral) Resp 20 Ht 162.6 cm (64) Wt 93 kg (205 lb) SpO2 92% BMI 35.19 kg/m?? Physical Exam VITALS: Reviewed General: Comfortable, cooperative and in no apparent distress HEENT: EOMI, no conjunctival icterus, MMM. CARDIOVASCULAR: Regular rate and rhythm, S1S2, no murmurs, rubs or gallops; radial, dorsalis pedis and posterior tibial pulses strong and equal bilaterally. Distant heart sounds 2/2 body habitus. LUNGS: No accessory muscle use on respiration, clear to auscultation bilaterally ABDOMEN: Soft, moderately distended, continued intense TTP to light palpation over epigastric/LUQ, marked splenomegaly appreciated. EXTREMITIES, SKIN: Trace edema, venous stasis dermatitis BLE, no calf tenderness NEURO: Alert and oriented x3, CNii-xii grossly intact w/o focal deficit. Gait slow but normal. PSYCH: Normal mood, congruent affect. Answers questions appropriately. Is PICC or central line present? No, PICC/Central line not present. Medications Reviewed: Labs Personally reviewed CBC: Recent Labs 09/30/2171810/01/21726 WBC 8.18 12.06 RBC 3.63* 3.74* HGB 9.8* 10.5* HCT 30.6* 31.7* MCV 84 85 MCH 27.0 28.1 MCHC 32.0* 33.1 PLT 41* 58* BMP: Recent Labs 09/30/2171810/01/21726 NA 135* 132* K 4.3 4.3 CL 101 97 CO2 27 25 BUN 15 18 CREATININE 0.88 0.93 CALCIUM 8.5 8.6 Imaging Personally reviewed Assessment/Plan Assessment Tara Yun is a 61 y.o. female with a PMHx of decompensated QUIROZ cirrhosis (portal htn, hepatic encephalopathy) w/ associated thrombocytopenia/hypersplenism, portal vein thrombosis, Hep C, asthma, COPD (no home O2), HUEY not on CPAP, hypothyroidism, & anxiety/depression who presented as a direct transfer to the floor after planned outpt partial splenic embolization by Interventional Radiology. Though pt feels subjectively better this AM, pain worsened over course of the day, will re-image w/ CT A/P given lack of significant improvement and to r/o infectious complication. Plan #Decompensated QUIROZ Cirrhosis #Portal Htn / Chronic Non-occlusive Portal Vein Thrombosis #Thrombocytopenia, Hypersplenism #Chronic Hep C - s/p partial splenic embolization by IR 118 AM w/ distal splenic infarction - s/p 1u plt, 1u cryo ppt prior to procedure + 3g Unasyn x1 - amoxicillin 500mg q8h x5d for ppx against splenic abscess post-procedurally per IR - increased [employer] Dilaudid to 2mg q3h PRN - held IV dilaudid for now, will give additional PRN for breakthrough as needed but trial PO first - [employer] furosemide 40mg every day - [employer] spironolactone 50mg every day - cont to hold anticoagulation in setting of thrombocytopenia (mild improvement to 58) - CT A/P w/ contrast ?? #COPD / Asthma / HUEY - [employer] albuterol q4h PRN - [employer] symbicort 2 puffs daily - duo-nebs q4h PRN - [employer] nocturnal 2L O2 ?? #CKD III - trend Cr, renal fxn labs #Hypothyroidism - [employer] levothyroxine 25mcg every day before breakfast ?? #Anxiety / Depression - [employer] sertraline 50mg every day ?? #Insomnia - [employer] trazodone 250mg at bedtime PRN Lines/Tubes: x2 PIV L/R forearms Anticoagulation: n/a -- hold for thrombocytopenia Pain meds: Dilaudid 2mg BID + IV dilaudid for breakthrough Abx: amoxicillin Bowel Regimen: Senna, miralax GI Ppx: n/a VTE Prophylaxis Hold d/t thrombocytopenia Discharge Plan Home or self care Consults None Lc Luis MD Internal Medicine, PGY-2 10/01/21 19:13 ATTENDING ATTESTATION: Date of service: 10/01/2021 I have personally interviewed and examined the patient. I personally reviewed laboratories studies, radiographic studies, ECG, and prior records. I discussed the case with the resident/IVA I agree with (or, as indicated, have edited in BLUE) the findings and plan of care as documented inthe note above. Abd pain modestly improved but still very tender, minimal PO. Will re-eval with CT a/p. Overall anticipate d/c to home next 1-2 days. Bull Augustine MD Internal Medicine Hospitalist 10/02/2021 6:30 * Kathleen East RT - 09/30/2021 2138 EST Patient too nauseous for neb treatment tonight. * Fausto Coats III, MD - 09/30/2021 1633 EST Interventional Radiology Progress Note Service Date: 09/30/2021 Admit Date: 09/28/2021 16:07 Post Procedure Day: 2 (09/28/2021) Procedure: Partial Splenic Ablation Overnight Events: ?? NAEO Subjective Reports slight interval worsening of her LUQ pain. Continues to not tolerate PO diet and requiring IV pain medicine for breakthrough pain. Denies chest pain, shortness of breath, fevers, lightheadedness/dizziness. Objective Vital Signs BP (!) 152/80 (BP Cuff Location: Left arm, BP Patient Position: Sitting) Pulse 63 Temp 37.7 ??C(99.9 ??F) (Temporal) Resp 20 Ht 162.6 cm (64) Wt 93 kg (205 lb) SpO2 95% BMI 35.19 kg/m?? Physical Exam General Appearance: NAD Lung: Non-labored respirations. Abdomen: Soft, mild TTP in LUQ. Extremities: WWP Puncture site(s)/Drain(s): CDI Skin: No rashes or bruising. Assessment 61 y.o. female with history of cirrhosis, non-occlusive portal thrombus and hypersplenism, day # 2 s/p partial splenic embolization. Plan - Continue to encourage PO intake, activity and limit IV pain medication as able. -If pain progresses tomorrow will consider CT abd/pelvis for further evaluation. - Discharge pending adequate pain control. Principal Problem: Hypersplenism Active Problems: At risk for inadequate pain control Pain crisis Fausto Coats III, MD Interventional Radiology, Pager #[phone], 09/30/2021 16:33 Cosigned by Ant Yoo MD at 09/30/2021 17:28 EST * Bull Augustine MD - 09/30/2021 1600 EST Medicine Progress Note Service Date: 09/30/2021 Admit Date: 09/28/2021 Length of Stay: 1 Reason for Admission: 61 y.o. female admitted with a chief complaint of direct admit s/p splenic embolization and now with a principal diagnosis of partial splenic embolization. 24 Hour Events: - NAEO Subjective/Objective Subjective Pt states continued inadequate pain control. Is able to ambulate however remains in significant pain. She states she is able to get some relief from IV dilaudid however it does not last. D/w pt preference for PO medications as are longer acting, discussed plan to remove IV meds and increase frequency of PO pain meds. States pain remains LUQ wrapping around laterally to L posterior midline. Denies f/c/n/v/d, h/a, SOB, chest pain, palpitations. Review of Systems A ten point review of systems was performed and was negative except for pertinent positives noted in the HPI Objective Vital Signs BP 133/73 (BP Cuff Location: Left arm, BP Patient Position: Sitting) Pulse 63 Temp 37.2 ??C (99??F) (Oral) Resp 20 Ht 162.6 cm (64) Wt 93 kg (205 lb) SpO2 92% BMI 35.19 kg/m?? Physical Exam VITALS: Reviewed General: Comfortable, cooperative and in no apparent distress HEENT: EOMI, no conjunctival icterus, MMM. CARDIOVASCULAR: Regular rate and rhythm, S1S2, no murmurs, rubs or gallops; radial, dorsalis pedis and posterior tibial pulses strong and equal bilaterally. Distant heart sounds 2/2 body habitus. LUNGS: No accessory muscle use on respiration, clear to auscultation bilaterally ABDOMEN: Soft, moderately distended, intense TTP to light palpation over epigastric/LUQ, marked splenomegaly appreciated. EXTREMITIES, SKIN: Trace edema, venous stasis dermatitis BLE, no calf tenderness NEURO: Alert and oriented x3, CNii-xii grossly intact w/o focal deficit. Gait slow but normal. PSYCH: Normal mood, congruent affect. Answers questions appropriately. Is PICC or central line present? No, PICC/Central line not present. Medications Reviewed: Labs Personally reviewed CBC: Recent Labs 09/29/21 0640 09/30/21 07 WBC 10.62 8.18 RBC 3.94 3.63* HGB 11.0* 9.8* HCT 33.9* 30.6* MCV 86 84 MCH 27.9 27.0 MCHC 32.4 32.0* PLT 43* 41* BMP: Recent Labs 09/29/21 0640 09/30/21718 NA 137 135* K 4.4 4.3 CL 105 101 CO2 24 27 BUN 16 15 CREATININE 0.91 0.88 CALCIUM 8.8 8.5 Imaging Personally reviewed Assessment/Plan Assessment Tara Yun is a 61 y.o. female with a PMHx of decompensated UQIROZ cirrhosis (portal htn, hepatic encephalopathy) w/ associated thrombocytopenia/hypersplenism, portal vein thrombosis, Hep C, asthma, COPD (no home O2), HUEY not on CPAP, hypothyroidism, & anxiety/depression who presented as a direct transfer to the floor after planned outpt partial splenic embolization by Interventional Radiology. Pt continues to have significant, uncontrolled pain. Trial preference of PO pain meds in anticipation of d/c in next 1-2d. Plan #Decompensated QUIROZ Cirrhosis #Portal Htn / Chronic Non-occlusive Portal Vein Thrombosis #Thrombocytopenia, Hypersplenism #Chronic Hep C - s/p partial splenic embolization by IR 11/8 AM w/ distal splenic infarction - s/p 1u plt, 1u cryo ppt prior to procedure + 3g Unasyn x1 - amoxicillin 500mg q8h x5d for ppx against splenic abscess post-procedurally per IR - increased CASE [employer]PARER [employer] LINER Dilaudid to 2mg q3h PRN - held IV dilaudid for now, will give additional PRN for breakthrough as needed but trial PO first - CASE PREPARER [employer] LINER furosemide 40mg every day - CASE PREPARER AND LINER spironolactone 50mg every day - cont to hold anticoagulation in setting of thrombocytopenia ?? #COPD / Asthma / HUEY - CASE PREPARER AND LINER albuterol q4h PRN - CASE PREPARER AND LINER symbicort 2 puffs daily - duo-nebs q4h PRN - CASE PREPARER AND LINER nocturnal 2L O2 ?? #CKD III - trend Cr, renal fxn labs #Hypothyroidism - CASE PREPARER AND LINER levothyroxine 25mcg every day before breakfast ?? #Anxiety / Depression - CASE PREPARER [employer] LINER sertraline 50mg every day ?? #Insomnia - CASE PREPARER AND LINER trazodone 250mg at bedtime PRN Lines/Tubes: x2 PIV L/R forearms Anticoagulation: n/a -- hold for thrombocytopenia Pain meds: Dilaudid 2mg BID + IV dilaudid for breakthrough Abx: amoxicillin Bowel Regimen: Senna, miralax GI Ppx: n/a VTE Prophylaxis Hold d/t thrombocytopenia Discharge Plan Home or self care Consults None Lc Luis MD Internal Medicine, PGY-2 09/30/21 21:52 ATTENDING ATTESTATION: Date of service: 09/30/2021 I have personally interviewed and examined the patient. I personally reviewed laboratories studies, radiographic studies, ECG, and prior records. I discussed the case with the resident/IVA I agree with (or, as indicated, have edited in BLUE) the findings and plan of care as documented inthe note above. Continues to have significant abd pain, abd exam without rebound/guarding. Will discuss with IR about possible re-imaging. Bull Augustine MD Internal Medicine Hospitalist 10/01/2021 6:26 * Kathleen East, RT - 09/29/20211958 EST Respiratory Consult/Progress Note Indications for Respiratory therapy: COPD Data Vitals: Heart Rate: 95 BPM, Resp: 22, SpO2: 93 % FIO2/O2 Device: O2 Flow Rate (L/min): 0 l/min, , O2 Device: None, RT Orders: D Symbicort QID Duoneb PRN Albuterol Protocol Scoring: Bronchodilator/Inhalation Therapy Frequency Bronchodialator - Clinical Indications: History of COPD Breath Sounds: Faint wheezing, decreased throughout Response: Mild response, increase subjective per FINGERPRINT CLASSIFIER Pulse: <100 Resp Rate: 18-25 SOB: With exertion Total Score: 5 Comment:: QID Airway Clearance Therapy Frequency Airway Clearance - Clinical Indications: No clinical indications Breath Sounds: Clear / diminished Sputum: Small (tsp) / None Consistency: None Cough Effort: Strong/ non-productive Color: None Total Score: 0 Comment: not indicated Hyperinflation Therapy Frequency Hyperinflation - Clinical Indications: No clinical indications Breath Sounds: Other Surgery: No X-Ray / Atelectasis: No O2 Requirements: O2 at baseline Mobility Status: Mobile / at baseline Total: 1 Comment: prn Action/Events Respiratory events; Called to bedside for increased wheezing and shortness of breath. BBS diminished and wheezy, patient struggling with abdominal pain, on RA. At home she uses up to 2 L 02 as needed. Now scoring QID, per protocol order changed for Duoneb. Increased aeration noted post treatment. KATHLEEN EAST, 09/29/21 * Bull Augustine MD - 09/29/2021 1200 EST Medicine Progress Note Service Date: 09/29/2021 Admit Date: 09/28/2021 Length of Stay: 0 Reason for Admission: 61 y.o. female admitted with a chief complaint of direct admit s/p splenic embolization and now with a principal diagnosis of partial splenic embolization. 24 Hour Events: - poor pain control overnight, limited prn dilaudid dosings Subjective/Objective Subjective Pt states inadequate pain control overnight despite PRN IV boluses. She states continues to have significant pain over LUQ of her abdomen, persistent intense ache. Denies f/c/n/v/d, h/a, SOB, chest pain, palpitations. Review of Systems A ten point review of systems was performed and was negative except for pertinent positives noted in the HPI Objective Vital Signs BP 111/62 (BP Cuff Location: Left arm, BP Patient Position: Sitting) Pulse 63 Temp 37.6 ??C (99.7 ??F) (Temporal) Resp 22 Ht 162.6 cm (64) Wt 93 kg (205 lb) SpO2 93% BMI 35.19 kg/m?? Physical Exam VITALS: Reviewed General: Comfortable, cooperative and in no apparent distress HEENT: PERRLA, EOMI, no conjunctival icterus, MMM. CARDIOVASCULAR: Regular rate and rhythm, S1S2, no murmurs, rubs or gallops; radial, dorsalis pedis and posterior tibial pulses strong and equal bilaterally. Distant heart sounds 2/2 body habitus. LUNGS: No accessory muscle use on respiration, clear to auscultation bilaterally ABDOMEN: Soft, moderately distended, intense TTP to light palpation over epigastric/LUQ, marked splenomegaly appreciated. EXTREMITIES, SKIN: Trace edema, venous stasis dermatitis BLE, no calf tenderness NEURO: Alert and oriented x3, CNii-xii grossly intact w/o focal deficit. Gait slow but normal. PSYCH: Normal mood, congruent affect. Answers questions appropriately. Is PICC or central line present? No, PICC/Central line not present. Medications Reviewed: Labs Personally reviewed CBC: Recent Labs 09/28/21193909/29/21 0640 WBC 4.54 10.62 RBC 3.92 3.94 HGB 11.0* 11.0* HCT 33.5* 33.9* MCV 86 86 MCH 28.1 27.9 MCHC 32.8 32.4 PLT 41* 43* BMP: Recent Labs 09/28/210 09/29/21 0640 NA 139 137 K 4.3 4.4 CL 107 105 CO2 22 24 BUN 16 16 CREATININE 0.97 0.91 CALCIUM 8.6 8.8 Coags: Card enz: Blood gas: LFTs: UA: Imaging Personally reviewed Assessment/Plan Assessment Tara Yun is a 61 y.o. female with a PMHx of decompensated QUIROZ cirrhosis (portal htn, hepatic encephalopathy) w/ associated thrombocytopenia/hypersplenism, portal vein thrombosis, Hep C, asthma, COPD (no home O2), HUEY not on CPAP, hypothyroidism, & anxiety/depression who presented as a direct transfer to the floor after planned outpt partial splenic embolization by Interventional Radiology. Pt continues to have significant, uncontrolled pain. Plan to uptitrate her pain meds and reassess in AM. Plan #Decompensated QUIROZ Cirrhosis #Portal Htn / Chronic Non-occlusive Portal Vein Thrombosis #Thrombocytopenia, Hypersplenism #Chronic Hep C - s/p partial splenic embolization by IR 09/28 AM w/ distal splenic infarction - s/p 1u plt, 1u cryo ppt prior to procedure + 3g Unasyn x1 - amoxicillin 500mg q8h x5d for ppx against splenic abscess post-procedurally per IR - increased [employer] LINER Dilaudid 4mg q12h - increased 0.4-0.8mg Dilaudid IV q3h PRN for breakthrough - CASE [employer]ER [employer] LINER furosemide 40mg every day - CASE [employer]PARER [employer] LINER spironolactone 50mg every day - cont to hold anticoagulation in setting of thrombocytopenia ?? #COPD / Asthma / HUEY - CASE PREPARER [employer] LINER albuterol q4h PRN - CASE PREPARER [employer] LINER symbicort 2 puffs daily - duo-nebs q4h PRN - CASE PREPARER [employer] LINER nocturnal 2L O2 ?? #CKD III - trend Cr, renal fxn labs #Hypothyroidism - CASE [employer]PARER [employer] LINER levothyroxine 25mcg every day before breakfast ?? #Anxiety / Depression - CASE PREPARER AND LINER sertraline 50mg every day ?? #Insomnia - CASE PREPARER [employer] LINER trazodone 250mg at bedtime PRN Lines/Tubes: x2 PIV L/R forearms Anticoagulation: n/a -- hold for thrombocytopenia Pain meds: Dilaudid 2mg BID + IV dilaudid for breakthrough Abx: amoxicillin Bowel Regimen: Senna, miralax GI Ppx: n/a VTE Prophylaxis Hold d/t thrombocytopenia Discharge Plan Home or self care Consults None Lc Luis MD Internal Medicine, PGY-2 09/29/21 21:29 ATTENDING ATTESTATION: Date of service: 09/30/2021 I have personally interviewed and examined the patient. I personally reviewed laboratories studies, radiographic studies, ECG, and prior records. I discussed the case with the resident/IVA I agree with (or, as indicated, have edited in BLUE) the findings and plan of care as documented inthe note above. Bull Augustine MD Internal Medicine Hospitalist 09/30/2021 7:11 * Taylor Stacey - 09/29/2021 1111 EST Initial Case Management/Social Work Assessment and Discharge Plan/Readmission Risk Assessment REASON FOR ADMISSION: Hypersplenism Patient understands reason for admission: Yes PATIENT INFO VERIFIED: PCP, Contact Info, Address Type of housing (single family, condo, apartment, [facility], single room occupancy, [facility] funded hotel room, group retirement) - rents a room Who does the patient live with? Couple she rents room from Does the patient have access to their own bedroom/bathroom/kitchen - or is it shared with others? shared LIVING ARRANGEMENTS AND ACCESSIBILITY ISSUES: Living Arrangements: Other (Comment) (Rents a room and provides assistance to owners) Levels: 1 Stairs to enter: 3 Handicap access: None Bathroom located on bedroom level?: Yes What in home social supports are available to the patient? Friends / neighbors Is 13/06 care available? No ADVANCED DIRECTIVES, POA &/or COLST IN PLACE: Healthcare Directive: No, patient does not have advance directive for healthcare treatment Information Provided on Healthcare Directives: Yes Information on Healthcare Directives Requested: No DIRECTIVES FOR FINANCES: Directive For Finances: No TRANSPORTATION: Transportation: Family Transportation Additional Details: Family will transport home Patient expects to be discharged to: Home CULTURAL, BAPTIST and/or LANGUAGE factors affecting health care/discharge planning: Spiritual/Cultural Requests: None Language/Literacy Needs Do you need us to provide any communication aids or devices?: No Insurance Information: Medical Insurance: Yes Type of insurance: Medicare, Medicaid Medicaid Type: Community Referred to patient financial [...] Verified: Specialists: Type of Home Health Services: None DME Provider: Pharmacy: [facility]/pharmacy #[id number] - [place], [place] - [address] [address] [facility]/pharmacy #[id number] - [place], [place] - [address] [place] [address] [facility] ([facility] - [address] [address] Home Health: Other: POST HOSPITAL TRANSITION PLAN: Pt expects to return home when medically ready for discharge. Pt rents a room from a couple with bathroom and kitchen access. Pt provides assistance to the couple with grocery shopping, cooking and cleaning. Pt is independent with own ADLs and IADLs. Pt is hopeful to discharge to home tomorrow once pain is better managed. Family will provide transportation. Stacey Taylor tanker driver Pager #[phone] * Fausto Coats III, MD - 09/29/2021 0831 EST Interventional Radiology Progress Note Service Date: 09/29/2021 Admit Date: 09/28/2021 16:07 Post Procedure Day: 1 (09/28/2021) Procedure: Selective splenic artery embolization Overnight Events: NAOE Subjective Reports continued left arm/shoulder as well as abdominal and lower back pain similar to yesterday. She endorses associated nausea but denies emesis. She hasn't tolerated solid foods as of yet, but has been able to tolerate PO liquids. She denies fevers, chills, lightheadedness/dizziness, and shortness of breath. Objective Vital Signs BP 122/65 (BP Cuff Location: Right arm, BP Patient Position: Semi fowlers) Pulse 63 Temp 37.2 ??C (99 ??F) (Tympanic) Resp 18 Ht 162.6 cm (64) Wt 93 kg (205 lb) SpO2 92% BMI 35.19 kg/m?? Physical Exam General Appearance: NAD Lung: Non-labored regular respirations. Abdomen: Soft, TTP in the LUQ, voluntary guarding Extremities: WWP Puncture site(s)/Drain(s): bandage c/d/i Assessment 61 y.o. female with history of cirrhosis, non-occlusive portal vein thrombus and hypersplenism, day# 1 s/p partial splenic artery embolization. Plan Discharge pending adequate PO pain control, and tolerating regular diet. Principal Problem: Hypersplenism Active Problems: At risk for inadequate pain control Fausto Coats III, MD Interventional Radiology, Pager #[phone], 09/29/2021 8:34 Cosigned by Ant Yoo MD at 09/29/2021 13:28 EST * Araceli Perry RT - 09/28/2021 2153 EST Respiratory Consult/Progress Note Indications for Respiratory therapy: Home routine Data Vitals: Heart Rate: 75 BPM, Resp: 18, SpO2: 92 % FIO2/O2 Device: O2 Flow Rate (L/min): 0 l/min, , O2 Device: None, RT Orders: PRN Accuneb Protocol Scoring: Bronchodilator/Inhalation Therapy Frequency Bronchodialator - Clinical Indications: Home regimen Breath Sounds: Any abnormal BS decreased Response: No change / no treatment Pulse: <100 Resp Rate: 18-25 SOB: With exertion Total Score: 3 Comment:: cont home routine Airway Clearance Therapy Frequency Airway Clearance - Clinical Indications: No clinical indications Breath Sounds: Clear / diminished Sputum: Small (tsp) / None Consistency: None Cough Effort: Strong/ non-productive Color: None Total Score: 0 Comment: not indicated Hyperinflation Therapy Frequency Hyperinflation - Clinical Indications: No clinical indications Breath Sounds: Other Surgery: No X-Ray / Atelectasis: No O2 Requirements: O2 at baseline Mobility Status: Mobile / at baseline Total: 1 Comment: not indicated Action/Events Consult complete. Home routine reviewed: BID Symbicort, PRN Albuterol/Accuneb. Spacer device and education provided. Pt can administer independently. Supplemental oxygen: 2L NC at night. No cpap/bipap use. Response/Results RN to administer MDI's with spacer. RT TABATHA 09/28/21 * Mallory Fink MD - 09/28/2021 1641 EST BRIEF IR PROGRESS NOTE Subjective: Patient reports that she has 6-7 out of 10 pain in her upper abdomen and her back. Denies nausea, light headedness, or palpitations. Has tolerated a small amount of fluid. She report 5/10wrist pain, no numbness, coldness, or paralysis. Objective: 94% spo2 on thumb pulse ox with good pleth. Physical Exam General: Alert, cooperative, non-distressed Pulmonary: Clear to auscultation, No wheezes, rales, or rhonchi Cardiovascular: Regular rate and rhythm Abdomen: obese, soft, tender on palp of LUQ, no ecchymosis Extremities: Dressing over L radial puncture site. No hematoma. Sensation intact. Normal warmth andcolor. 2+ ulnar and radial arteries. Skin: No rashes, no lesions Assessment/Plan: Ms Yun is a 61 yo F w/ hx of cirrhosis, portal HTN, non-occlusive portal vein thrombosis, and hypersplenism. Now s/p partial splenic embolism, admitted for observation and pain control. Expected post procedural pain in the abdomen/back and in the left wrist. -appreciate admission by internal medicine -expected post-procedure post embolic pain currently controlled with dilaudid -patent left radial artery, no evidence of hematoma or radial artery occlusion MALLORY FINK MD 09/28/21 16:57 * Martha Santiago RN - 09/28/2021 1150 EST received report from [facility] Situation: 1115 Pt in IR for Left radial artery access for partial splenic embolization procedure. Background: Cirrhosis Portal htn Assessment: ?? Pt is resting quietly on supine on O2 4 L thus far versed 7mg fentanyl 200mcg ?? PRoviders intraprocedure Dr Fausto Coats, Dr Santos Scriver ?? Pt is cooperative with breathholding cadences during contrast imaging ?? Imaging completed 1125. ?? Left wrist TR band in place 13ml inflated in the tr band balloon ?? Pt complaining of back pain continiue to titrate sedation , fentanyl IV at 1125 ?? Pt moved to stretcher able to have head elevated to relieve back pain Out of room 1150 tr band no drainage palpable radial pulses Report to noreen HAWK on Carr[place] 5 Total Medication administered during procedure. ?? Versed 7mg IV and Fentanyl 250mcg IV over 125minutes ?? Unasyn, 1 unit each platelets and cryo. ?? Gentamicin 80mg given by provider with embospheres ?? Radial cocktail verapmil ,heparin nitroglycerin IA by provider ?? cvu administered solucortef 100mg and zofran 4mg Recommendation Receiving RN to release and acknowledge Post procedure orders * Karen Harvey RN - 09/28/2021 0705 EST Have you had any of the following symptoms? Fever YES/NO: No Cough/Chest congestion/Difficulty breathing YES/NO: No Sore throat or loss of taste / smell?YES/NO: No Chills YES/NO: No Joint Pain or weakness YES/NO: No Vomiting, abdominal pain, diarrhea YES/NO: No Severe headache YES/NO: No Bruising or bleeding YES/NO: No Rash or red eyes YES/NO: No Have you had known exposure or close contact with someone who has been diagnosed with Covid 19? (close contact, within 6 feet of any person known to have Coronavirus in the past 14 days) YES/NO: No * Tayler Vanessa RN - 09/28/2021 07 EST Pt received from CVU to angio at 908. Pt in agreement with plan for splenic embo with moderate sedation. Patient name and verified using armband and verbally. Patient???s allergies, medications, labs and NPO status reviewed. IV site checked for patency. Pt educated on what to expect during the procedure as well as with IV sedation and verbalizes understanding. Pt positioned supine, with safety straps in place, extremities supported, and heels elevated for duration of procedure. Sterile prep of right wrist and b/t groin with duraprep by RLB in the usual sterile fashion in compliance with manufacturers recommendation. Pre-procedure 3000 mg unasyn administered IVPB. 0948 Farias moment agreed upon by all staff in room prior to start of procedure by APEdie/LUIS/SHANE/Jorge L. Lidocaine to area. LRA accessed. See provider note for detail. 1 unit platelets and cryo completed during procedure. Report given to KENN Thomas. Total of 7 mg versed and 200 mcg of fentanyl administered. documented in this encounter H&P Notes * Fausto Coats III, MD - 09/28/2021 0700 EST The preoperative history and physical which was performed within 30 days of this procedure has been reviewed and the clinically appropriate elements of the physical examination have been repeated. There are no changes to the documented history and physical or if so such changes are documented below Fausto Coats III, MD 09/28/2021 8:31 Source Note - Ant Yoo MD - 09/16/2021 11:30 EDT Subjective: Patient ID: Tara Yun is an 61 y.o. female. Chief Complaint Patient presents with ??? Advice Only Referring field artillery operations man: Dr. Paige Type of visit: In person HPI 61-year-old female seen for evaluation of hypersplenism. Patient with a history of cirrhosis, portal hypertension, hypersplenism, and nonocclusive portal vein thrombus for which she was placed on Lovenox. Her anticoagulation had to be discontinued secondary to worsening thrombocytopenia. Because ofthe need for anticoagulation in the setting of portal vein thrombus, she was referred to consider partial splenic embolization. Overall, the patient feels well, however is discouraged as she feels asthough she is spending more time in the hospital in the last year than she ever has. Last platelet count was 48K on 09/08/2021, which also showed a leukopenia (WBC 1.2). Last INR 1.4 on 06/29/2021. Patient Active Problem List Diagnosis ??? Pancytopenia [...] overload ??? Moderate protein-calorie malnutrition (HCC-CMS) (HCC) Past Medical History: Diagnosis Date ??? Anemia ??? Anxiety ??? Asthma 12/10/2020 currently not taking - mild persistent - see dr. Veronica 11/20/2021 ??? Bleeding disorder (HCC-CMS) (HCC) ??? Bursitis right shoulder ??? C. difficile colitis 07/25/2015 Hospitalized after kidney stone removal ??? Chronic ITP (idiopathic thrombocytopenia) (HCC-CMS) (HCC) 12/10/2020 - see 11/20/2020 Dr. Glenys Denton, (managed by Starr Paige MD) ??? Chronic kidney disease slow to come back ??? Cirrhosis of liver (HCC-CMS) (HCC) ??? Clotting disorder (HCC-CMS) (HCC) ??? Community acquired pneumonia january 2021 ??? COPD exacerbation (HCC-CMS) (HCC) 04/26/2020 ??? Depression ??? Drug-seeking behavior Per Dr Amelia Tijerina and notes from [facility] patient misconstrued information to several providers about [...] bilateral leg edema - see 11/20/2020 Dr. Cy Denton ??? Hypersplenism syndrome ??? Hypersplenism syndrome ??? Hypotension 70-80/30-40 usually ??? Hypothyroidism ??? Joint replaced 199912/10/2020 nya knees ??? QUIROZ (nonalcoholic steatohepatitis) ??? Oxygen dependent 12/10/2020 HS ??? Pancytopenia (HCC) ??? Rheumatoid arthritis ??? Shortness of breath ??? Sleep apnea ??? Thrombocytopenia (HCC-CMS) (HCC) 12/10/2020 - see 11/20/2020 Dr. Glenys Denton, (managed by Starr Paige MD) ??? Thyroid disease Past Surgical History: Procedure Laterality Date ??? APPENDECTOMY ??? BONE MARROW BIOPSY ??? CHOLECYSTECTOMY ??? CYSTOSCOPY 12/03/2020 ??? GASTRIC FUNDOPLICATION 198912/02/2020 - confirmed by pt ??? HERNIA REPAIR ??? HYSTERECTOMY ??? JOINT REPLACEMENT Bilateral with multiple revisions of both knees ??? KNEE SURGERY Bilateral ??? TONSILLECTOMY ??? WRIST SURGERY Right after fracture Family History Problem Relation Age of Onset ??? Cancer Maternal Grandmother skin ??? Diabetes Mother ??? Coronary Artery Disease Father ??? Clotting Disorder Father ??? Diabetes Brother Social Social History Tobacco Use ??? Smoking status: Former Smoker Packs/day: 0.25 Years: 35.00 Pack years: 8.75 Types: Cigarettes ??? Smokeless tobacco: Never Used Vaping Use ??? Vaping Use: Never used Substance Use Topics ??? Alcohol use: No Alcohol/week: 0.0 standard drinks ??? Drug use: Not Currently Types: Marijuana No outpatient medications have been marked as taking for the 09/16/21 encounter (Office Visit) withAnt Yoo MD. Allergies Allergen Reactions ??? Metoclopramide Nausea Only, [...] Prochlorperazine ??? 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 Partial splenic embolization has been shown to significantly increase platelet counts which may allow anticoagulation in this patient. I discussed the procedure in detail to the patient as well as the risks and expected post procedure course. I would plan infarcting approximately 50% of the spleen. If there is an inadequate rise in the platelet count, then I would consider further embolization 1 to 2 months later. Following embolization, postembolization syndrome is expected, and therefore she will need to be admitted overnight for symptom control. Intra-arterial gentamicin will be given with the embolic beads, and the patient should be started on amoxicillin post procedure to reduce the risk of splenic abscess formation. Prior to the procedure, in patients with cirrhosis and thrombocytopenia, I will obtain a TEG in order to determine if she needs platelet transfusion during the procedure. The patient understands this process, and desires to proceed. Plan: Tara was seen today for advice only. Diagnoses and all orders for this visit: Hypersplenism - IR EMBOLIZATION; Future Schedule for elective partial splenic embolization, with planned observation admission for pain control. TEG to be drawn 2 weeks prior to procedure. I spent a total of 15 minutes in face to face time with this patient and 15 minutes of that time was spent in disease review, image review, counseling, treatment planning and coordination of care as described in the progress note. Ant Yoo MD * Bull Augustine MD - 09/28/2021 0700 EST Medicine Admission History & Physical Service Date: 09/28/2021 Admit Date: 09/28/2021 Primary Care Provider: Emigdio Veronica Chief Complaint: Pain s/p splenic embolization HPI Tara Yun is a 61 y.o. female with a PMHx of decompensated QUIROZ cirrhosis, portal hypertension w/ associated thrombocytopenia/hypersplenism, portal vein thrombosis, Hep C, asthma, COPD (no homeO2), HUEY not on CPAP who presented as a direct transfer to the floor after planned outpt partial splenic embolization by Interventional Radiology. Pt has known portal v. thrombus (non-occlusive on last CT 06/2021) and thus requires anticoagulation however this has been limited by the fact that her platelet counts have continued to be low 2/2 to her cirrhosis, hypersplenism. She was referred to IR by Hematology for partial splenic embolization in hopes that this would improve her thrombocytopeniato an appropriate level to continue on anticoagulation. Pt arrives to the floor from IR suite hemodynamically stable on RA. She received x1 plt, x1 cryo ppt prior to IR procedure. Procedure was reportedly well tolerated. Pt states she had some LUQ pain prior to the procedure however this was worsened afterwards. She states her pain is not currently wellcontrolled and is requesting more pain medications. Pain is sharp and isolated to LUQ. She denies other sx including f/c/n/v/d, cough, SOB, h/a, lightheadedness, dizziness. Pt has a history of HUEY however denies CPAP use, she states she wears 2L supplemental O2 at night. She is on spironolactone, furosemide for volume overload. Pt denies cardiac hx however per chart review there has been some concern of CHF in the past. She is on inhalers for her COPD, controlled w/o O2 during daytime hours. Has had numerous past surgeries including multiple knee surgeries, ventral hernia repair, cholecystectomy, appendectomy, total hysterectomy. She has had longstanding QUIROZ cirrhosis dx around 10yr ago and has since progressed quite a bit. She denies hx of ascites, paracentesis, esophageal varices. Pt lives in a rented room of an elderly couple in [facility] where she watches over them and assists them in ADLs. She states she is normally independently ambulatory w/o assistive device. She denies hx of significant EtOH use, former smoker w/ 40 ppd, current occasional smoker (1-2 cigarettes a couple days a week). Denies recreational drug use including marijuana/methamphetamine/cocaine/heroin. Family hx of DM, brother w/ unspecified heart disease. Review of Systems A complete 10 point ROS was performed and pertinent positive and negative findings listed in HPI, otherwise negative. Past Medical History: Diagnosis Date ??? Anemia ??? Anxiety ??? Asthma 12/10/2020 currently not taking - mild persistent - see dr. Veronica 11/20/2021 ??? Bleeding disorder ([facility]-CMS) ([facility]) ??? Bursitis right shoulder ??? C. difficile colitis 07/25/2015 Hospitalized after kidney stone removal ??? Chronic ITP (idiopathic thrombocytopenia) (HCC-CMS) ([facility]) 12/10/2020 - see 11/20/2020 Dr. Veronica H&P, (managed by Starr Paige MD) ??? Chronic kidney disease slow to come back ??? Cirrhosis of liver (HCC-CMS) (HCC) ??? Clotting disorder (HCC-CMS) (HCC) ??? Community acquired pneumonia january 2021 ??? COPD exacerbation (HCC-CMS) (HCC) 04/26/2020 ??? Depression ??? Drug-seeking behavior Per Dr Amelia Tijerina and notes from [facility] patient misconstrued information to several providers about [...] (HCC) 12/10/2020 - see 11/20/2020 Dr. Veronica HTammy, (managed by Starr Paige MD) ??? Thyroid disease Past Surgical History: Procedure Laterality Date ??? APPENDECTOMY ??? BONE MARROW BIOPSY ??? CHOLECYSTECTOMY ??? CYSTOSCOPY 12/03/2020 ??? GASTRIC FUNDOPLICATION 198912/02/2020 - confirmed by pt ??? HERNIA REPAIR ??? HYSTERECTOMY ??? JOINT REPLACEMENT Bilateral with multiple revisions of both knees ??? KNEE SURGERY Bilateral ??? TONSILLECTOMY ??? WRIST SURGERY Right after fracture Social History Socioeconomic History ??? Marital status: Single Spouse name: Not on file ??? Number of children: 3 ??? Years of education: Not on file ??? Highest education level: Not on file Occupational History ??? 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 Smoking status: Current Some Day Smoker Packs/day: 0.25 Years: 35.00 Pack years: 8.75 Types: Cigarettes ??? Smokeless tobacco: Never Used Vaping Use ??? Vaping Use: Never used Substance and Sexual Activity ??? Alcohol use: No ??? Drug use: Not Currently Types: Marijuana ??? Sexual activity: Yes Partners: Male control/protection: Surgical Other Topics Concern ??? Not on file Social History Narrative ??? Not on file Social Determinants of Health Financial Resource Strain: ??? Difficulty of Paying Living Expenses: Not on file Food Insecurity: ??? Worried About Running Out of Food in the Last Year: Not on file ??? Ran Out of Food in the Last Year: Not on file Transportation Needs: ??? Lack of Transportation (Medical): Not on file ??? Lack of Transportation (Non-Medical): Not on file Physical Activity: ??? Days of Exercise per Week: Not on file ??? Minutes of Exercise per Session: Not on file Stress: ??? Feeling of Stress : Not on file Social Connections: ??? Frequency of Communication with Friends and Family: Not on file ??? Frequency of Social Gatherings with Friends and Family: Not on file ??? Attends [employer] Services: Not on file ??? Active Member of Clubs or Organizations: Not on file ??? Attends Club or Organization Meetings: Not on file ??? Marital Status: Not on file Social History Tobacco Use Smoking Status Current Some Day Smoker ??? Packs/day: 0.25 ??? Years: 35.00 ??? Pack years: 8.75 ??? Types: Cigarettes Smokeless Tobacco Never Used Social History Tobacco Use ??? Smoking status: Current Some Day Smoker Packs/day: 0.25 Years: 35.00 Pack years: 8.75 Types: Cigarettes ??? Smokeless tobacco: Never Used Substance Use Topics ??? Alcohol use: No Family History Problem Relation Age of Onset ??? Cancer Maternal Grandmother skin ??? Diabetes Mother ??? Coronary Artery Disease Father ??? Clotting Disorder Father ??? Diabetes Brother No current outpatient medications on file. Medications Prior to Admission Medication Sig ??? albuterol (ACCUNEB) 2.5 mg /3 mL (0.083 %) nebulizer solution USE 1 VIAL VIA NEBULIZER 4 TIMES A DAY NEEDED (Patient not taking: Reported on 09/28/2021) ??? albuterol 90 mcg/actuation inhaler Inhale 1-2 Puffs as directed every 4 hours as needed for Wheezing. ??? furosemide (LASIX) 20 mg tablet Take 1 every morning for fluid in legs; if swelling is worse than usual then take 2 every morning. Max daily dose is 40 mg per day. ??? HYDROmorphone (DILAUDID) 2 mg tablet Take 1 Tablet by mouth every 12 hours as needed for up to 28 days for Pain. Early fill for travel Daily Max: 4 mg ??? levothyroxine (SYNTHROID) 25 mcg tablet Take 1 Tab by mouth daily. Unknown dose (Patient takingdifferently: Take 25 mcg by mouth daily before breakfast. ) ??? mupirocin (BACTROBAN) 2 % ointment Apply 3 times a day for 1 week for painful sore on lower right leg. ??? ondansetron (ZOFRAN) 4 mg tablet Take 1 Tab by mouth 2 times daily as needed for Nausea. ??? OXYGEN-AIR DELIVERY SYSTEMS MISC 2 L by misc (non-drug; combo route) route at bedtime. ??? sertraline (ZOLOFT) 50 mg tablet Take 1 Tab by mouth daily. ??? spironolactone (ALDACTONE) 50 mg tablet TAKE 1 TABLET BY MOUTH EVERY DAY ??? SYMBICORT 160-4.5 mcg/actuation HFA aerosol inhaler [...] Prochlorperazine ??? Reglan [Metoclopramide Hcl] Rash Objective BP 126/70 (BP Cuff Location: Right arm, BP Patient Position: Semi fowlers) Pulse 63 Temp 37.2 ??C (99 ??F) (Tympanic) Resp 18 Ht 162.6 cm (64) Wt 93 kg (205 lb) SpO2 99% BMI 35.19 kg/m?? Height: 162.6 cm (64) Weight : 93 kg (205 lb) Body mass index is 35.19 kg/m??. Physical Exam VITALS: Reviewed General: Comfortable, cooperative and in no apparent distress HEENT: PERRLA, EOMI, no conjunctival icterus, oral mucosa is moist without apparent lesions. CARDIOVASCULAR: Regular rate and rhythm, S1S2, no murmurs, rubs or gallops; radial, dorsalis pedis and posterior tibial pulses strong and equal bilaterally. Distant heart sounds 2/2 body habitus. LUNGS: No accessory muscle use on respiration, clear to auscultation bilaterally ABDOMEN: Soft, moderately distended, TTP to light palpation over epigastric/LUQ, marked splenomegaly appreciated. EXTREMITIES, SKIN: Trace edema, venous stasis dermatitis BLE, no calf tenderness NEURO: Alert and oriented x3, CNii-xii grossly intact w/o focal deficit. PSYCH: Normal mood, congruent affect. Answers questions appropriately. Pressure Ulcer Present on admission? not fully assessed Labs CBC: Recent Labs 09/28/21 0734 09/28/211939 WBC -- 4.54 HGB -- 11.0* HCT -- 33.5* MCV -- 86 PLT 40* 41* BMP: Recent Labs 09/28/211939 NA 139 K 4.3 CL 107 CO2 22 BUN 16 CREATININE 0.97 CALCIUM 8.6 SERGLU 163* Estimated Creatinine Clearance: 67.3 mL/min (by C-G formula based on SCr of 0.97 mg/dL). Coags: No results for input(s): PROTIME, INR, PTT in the last 72 hours. LFTs: No results for input(s): AST, ALT, GGT, ALKPHOS, TBIL, CONJBILI, UNCONJBILI, TP, PREALBUMIN, LABALBU in the last 72 hours. FSBS: No results for input(s): GLUCOSEFINGE in the last 72 hours. Imaging No new imaging. Assessment Tara Yun is a 61 y.o. female with a PMHx of decompensated QUIROZ cirrhosis (portal htn, hepatic encephalopathy) w/ associated thrombocytopenia/hypersplenism, portal vein thrombosis, Hep C, asthma, COPD (no home O2), HUEY not on CPAP, hypothyroidism, & anxiety/depression who presented as a direct transfer to the floor after planned outpt partial splenic embolization by Interventional Radiology. Pt admitted as observation overnight for pain control after splenic embolization, anticipate d/c home tomorrow. Plan #Decompensated QUIROZ Cirrhosis #Portal Htn / Chronic Non-occlusive Portal Vein Thrombosis #Thrombocytopenia, Hypersplenism #Chronic Hep C - s/p partial splenic embolization by IR 11/8 AM w/ distal splenic infarction - s/p 1u plt, 1u cryo ppt prior to procedure + 3g Unasyn x1 - amoxicillin 500mg q8h x5d for ppx against splenic abscess post-procedurally per IR - schedule [employer] Dilaudid 2mg q12h - 0.2-0.4mg Dilaudid IV q3h PRN for breakthrough - [employer] furosemide 40mg every day - [employer] spironolactone 50mg every day - cont to hold anticoagulation in setting of thrombocytopenia #COPD / Asthma / HUEY - [employer] albuterol q4h PRN - [employer] symbicort 2 puffs daily - duo-nebs q4h PRN - [employer] nocturnal 2L O2 #CKD III - trend Cr, renal fxn labs #Hypothyroidism - [employer] levothyroxine 25mcg every day before breakfast #Anxiety / Depression - [employer] sertraline 50mg every day #Insomnia - [employer] trazodone 250mg at bedtime PRN Lines/Tubes: x2 PIV L/R forearms Anticoagulation: n/a -- hold for thrombocytopenia Pain meds: Dilaudid 2mg BID + IV dilaudid for breakthrough Abx: amoxicillin Bowel Regimen: Senna, miralax GI Ppx: n/a VTE Prophylaxis Ambulate Code: FULL Discharge Plan Home or self care Consults None Admission Status Observation. Anticipated duration of hospitalization is less than two midnights. Lc Luis MD Internal Medicine, PGY-2 09/28/21 21:02 ATTENDING ATTESTATION: Date of service: 09/28/2021 I have personally interviewed and examined the patient. I personally reviewed laboratories studies, radiographic studies, ECG, and prior records. I discussed the case with the resident/IVA I agree with (or, as indicated, have edited in BLUE) the findings and plan of care as documented inthe note above. 61yo F w/hx of cirrhosis, associated hypersplenisim. Referred to IR for splenic artery embolication. Direct admission for observation post-procedure, pain control. IR rec amox x5 days. Bull Augustine MD Internal Medicine Hospitalist 09/28/2021 21:03 documented in this encounter Procedure Notes * Fausto Coats III, MD - 09/28/2021 0700 EST IR Procedure Note Procedure: Splenic artery embolization Date Performed: 09/28/2021 Radiologist/Program Rep(s): Dr. Yoo, Dr. Coats, Dr. Fink Sedation/Anesthesia: Local anesthesia and conscious sedation. Time Out: A time-out was completed prior to procedure verifying correct patient, procedure, site, positioning, and special equipment if applicable. Estimated Blood Loss: Unless otherwise noted, there was no blood loss, specimens removed, cultures obtained, or drains retained. Fluoroscopy Time: See final dictation. Contrast Volume: 60 cc Complications: None Condition: Stable Findings: Successful splenic artery embolization using microspheres, [place] micro-coils and gel foam slurry via left radial access. Recommendations: 1.) To CVU for recovery, with plan to be admitted to hospitalist service. 2.) TR band care as ordered. 3.) Call IR PRN. Fausto Coats III, MD 09/28/2021 11:56 Cosigned by Dom Dawson MD at 09/28/2021 12:29 EST documented in this encounter Miscellaneous Notes * Plan of Care - Morena Roth RN - 10/02/2021 0337 EST Data: Patient complaint of LUQ abdominal discomfort 8-07/31. Oxygen @ 3 LNC in use for HS; RA Oxygen Sat 89% Action: Patient medicated with prn Dilaudid 2 mg po twice and Zofran 4 mg po x1 since this RN assumed care at 2300. Patient encouraged to keep Oxygen on to maintain Oxygen sat above 90% Response: Patient slept for couple hours; still reports a pain level at least 8/10. Oxygen sat 93% on 3 LNC. Problem: Resident experiences pain/discomfort Goal: Resident will maintain an acceptable level of pain Description: INTERVENTIONS 1. Administer pain medication as ordered 2. Offer non-pharmacological pain management interventions Outcome: Ongoing Problem: Daily Care Plan Goals Goal: Care Plan Documentation Outcome: Ongoing Morena Roth RN 10/02/2021 3:37 * Plan of Care - Morena Roth RN - 10/01/2021 2316 EST This RN assumed care of patient at this time for the remainder of the shift. Patient awake, alert, oriented x4; patient OOB ambulating and sitting in hallway, patient denies any acute pain or respiratory distress; tolerating ambulating independent. No distress noted. * Plan of Care - Elizabeth Morfin RN - 10/01/2021 1451 EST Problem: Daily Care Plan Goals Goal: Care Plan Documentation Outcome: Not Met This Shift Flowsheets (Taken 10/01/2021 0967) Area of Focus: Pain/ Comfort Goal This Shift: Pt will report adequate pain control Data: Assumed care of Pt at 0700. Pt POD#3 of Partial splenic embolization. Pt is A&Ox3, independent c/o 08/30 pain in LUQ this am. Regular diet. Action: Administered scheduled medications and PRN PO dilaudid per JAN. Ordered pt lunch and offered heat for abdominal pain. PRN zofran given for nausea. Response: Pt reports decrease of pain to 8/10. Pt ate only few bites of eggs. She reports that she does not have an appetite. CT scheduled for this evening. Will continue to monitor and adjust interventions as needed. ELIZABETH MORFIN RN 10/01/2021 14:52 * Plan of Care - Kala Dalton RN - 10/01/2021 0419 EST Problem: Resident experiences pain/discomfort Goal: Resident will maintain an acceptable level of pain Description: INTERVENTIONS 1. Administer pain medication as ordered 2. Offer non-pharmacological pain management interventions Outcome: Ongoing Problem: Daily Care Plan Goals Goal: Care Plan Documentation Outcome: Ongoing Flowsheets (Taken 09/30/20212041) Area of Focus: Pain/ Comfort Goal This Shift: pt will report adequate pain control, decreased nausea, be able to sleep Data: Pt POD#3 s/p partial splenic embolization. Reports 10/10 pain in LUQ, asks specifically for IV dilaudid. Pt reports nausea and had an episode of emesis around 2029. 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 Admin pain meds per jan, coordinated with MD for pain coverage for pt. Monitored VS. Response: Pt able to tolerate pain level and ambulate during the night. Pt continues to report 8 to10 out of 10 pain in LUQ with Nausea. MD is aware. KALA DALTON RN 10/01/2021 4:19 * Plan of Care - Laxmi Tillman RN - 09/30/2021 1657 EST Data: Patient is s/p partial splenic embolization by IR. Patient is A&Ox3, able to make needs known. Patient c/o 9/10 pain. Action: Administered dilaudid to patient per orders. Encouraged patient to ambulate around mora. Educated patient on using PO dilaudid instead of IV Dilaudid and new pain management schedule. Response: Patient's pain is getting more controlled. LAXMI TILLMAN RN 09/30/2021 16:57 * Plan of Care - Kala Dalton RN - 09/30/2021 0219 EST Problem: Daily Care Plan Goals Goal: Care Plan Documentation Outcome: Met This Shift Flowsheets (Taken 09/29/20212118) Area of Focus: Pain/ Comfort Goal This Shift: pt will report adequat pain control Problem: Resident experiences pain/discomfort Goal: Resident will maintain an acceptable level of pain Description: INTERVENTIONS 1. Administer pain medication as ordered 2. Offer non-pharmacological pain management interventions Outcome: Ongoing Data: Pt POD#2 s/p partial splenic artery embolization. Pt reports 11 pain. Pt states Only the IV medication helps my pain. Independent in the room Action: VS q8h, clustered care to promote rest. Pain med dosage increased, dilaudid administered PRN. Non-pharm pain relief offered and encouraged. Response: Pt able to sleep intermittently throughout the night. Pt continues to request only IV dilaudid for pain control. Pt reports high pain levels, 8 to 07/31. KALA DALTON RN 09/30/2021 2:19 * Plan of Care - Marc Gregory RN - 09/29/2021 1856 EST Problem: High Fall Risk: Goal: Patient will Remain Free of Falls due to Med. Side Effects Outcome: Met This Shift Problem: Resident experiences pain/discomfort Goal: Resident will maintain an acceptable level of pain Description: INTERVENTIONS 1. Administer pain medication as ordered 2. Offer non-pharmacological pain management interventions Outcome: Ongoing Problem: Resident experiences pain/discomfort Goal: Resident will maintain an acceptable level of pain Description: INTERVENTIONS 1. Administer pain medication as ordered 2. Offer non-pharmacological pain management interventions Outcome: Ongoing Data:PT aaox3 , ambulated x4 in hallway. Pt c/o abdominal pain 06/30 . Action: meds ,pain med given as per JAN. Response: Pt reported pain /10 , pt visiting with family . Call light at reach . MARC GREGORY RN 09/29/2021 18:57 documented in this encounter Plan of Treatment Upcoming Encounters Date Type Department Care Team (Late st Contact Info) Description 01/04/2025 13:00 EST Office Visit [facility] Ophthalmology - [address] [id number] Gagandeep Rome MD [address] [place] [address], [address] [place] [phone] 02/11/2025 13:30 EDT Telemedicine [facility] Hematology & Oncology - [address] [id number] Dana Padilla MD [address] [place] [address], [facility] [address] [place] [phone] documented as of this encounter Procedures Procedure Name Priority Date/Time Associated Diagnosis Comments TRANSFUSION RECORD - SCANNED 10/07/2021 7:37 EST ORDERS - SCANNED 10/07/2021 7:37 EST EVAL FOR HOME OXYGEN USE Routine 10/02/2021 7:51 EST COMPLETE BLOOD COUNT Routine 10/02/2021 7:28 EST BASIC METABOLIC PANEL (BMP) Routine 10/02/2021 7:[address] ABDOMEN PELVIS W CONTRAST Routine 10/01/2021 18:30 EST COMPLETE BLOOD COUNT Routine 10/01/2021 7:27 EST BASIC METABOLIC PANEL (BMP) Routine 10/01/2021 7:27 EST DRY POWDERED OR METERED DOSE INHALER Routine 10/01/2021 6:00 EST NEBULIZER TX INTERMITTENT Routine 10/01/2021 6:00 EST NEBULIZER TX INTERMITTENT Routine 09/30/2021 19:00 EST NEBULIZER TX INTERMITTENT Routine 09/30/2021 15:00 EST NEBULIZER TX INTERMITTENT Routine 09/30/2021 10:00 EST COMPLETE BLOOD COUNT Routine 09/30/2021 7:19 EST BASIC METABOLIC PANEL (BMP) Routine 09/30/2021 7:19 EST DRY POWDERED OR METERED DOSE INHALER Routine 09/30/2021 6:00 EST NEBULIZER TX INTERMITTENT Routine 09/30/2021 6:00 EST NEBULIZER TX INTERMITTENT Routine 09/29/2021 19:00 EST DRY POWDERED OR METERED DOSE INHALER Routine 09/29/2021 16:38 EST NEBULIZER TX INTERMITTENT Routine 09/29/2021 16:38 EST NEBULIZER TX INTERMITTENT Routine 09/29/2021 16:38 EST NEBULIZER TX INTERMITTENT Routine 09/29/2021 16:38 EST NEBULIZER TX INTERMITTENT Routine 09/29/2021 16:38 EST NEBULIZER TX INTERMITTENT Routine 09/29/2021 16:38 EST COMPLETE BLOOD COUNT Routine 09/29/2021 6:40 EST BASIC METABOLIC PANEL (BMP) Routine 09/29/2021 6:40 EST COMPLETE BLOOD COUNT Routine 09/28/2021 19:40 EST BASIC METABOLIC PANEL (BMP) Routine 09/28/2021 19:40 EST IR EMBOLIZATION Routine 09/28/2021 11:55 EST Hypersplenism TRANSFUSE CRYOPRECIPITATE Routine 09/28/2021 9:59 EST TYPE AND SCREEN Routine 09/28/2021 8:31 EST PREPARE PLATELETS Routine 09/28/2021 7:5 8 EST PREPARE CRYOPRECIPITATE Routine 09/28/20 7:58 EST PLATELET COUNT STAT 09/28/2021 7:34 EST documented in this encounter Results * TRANSFUSION RECORD - SCANNED (10/07/2021 7:37 EST) 10/07/2021 7:37 EST us Scan 2 [employer] Editor LAB INFO SERVICE AND SUPPOR T & PHONE RESULT Final Result * ORDERS - SCANNED (10/07/2021 7:37 EST) 10/07/2021 7:37 EST us Scan 2 [employer] Editor ADMISSION ORDERABLES Final Result * (ABNORMAL) COMPLETE BLOOD COUNT (10/02/2021 7:28 EST) WBC 10.62 4.00 - 12.40 K/cmm 10/02/2021 8:33 [facility] RBC 3.58(L) 3.86 - 5.04 M/cmm 10/02/2021 8:33 [facility] Hemoglobin 9.6(L) 11.6 - 15.2 gm/dL 10/02/2021 8:33 [facility] HCT 29.4(L) 34.9 - 44.4 % 10/02/2021 8:33 [facility] MCV 82 81 - 98 fl 10/02/2021 8:33 [facility] MCH 26.8 26.7 - 33.3 pg 10/02/2021 8:33 [facility] MCHC 32.7 32.1 - 35.9 gm/dL 10/02/2021 8:33 [facility] RDW-CV 15.2(H) <14.7 % 10/02/2021 8:33 [facility] RDW-SD 45.1 <50.4 fl 10/02/2021 8:33 [facility] PLT 70(L) 141 - 377 K/cmm 10/02/2021 8:33 [facility] MPV 10.1 9.5 - 12.7 fl 10/02/2021 8:33 [facility] Blood VENOUS BLOOD / Unknown Venipuncture / Unknown 10/02/2021 7:28 EST 10/02/2021 8:14 EST Lc Luis MD HEMATOLOGY & PF4 ORDERABLES F inal Result [facility] [address] [place] [address] * (ABNORMAL) BASIC METABOLIC PANEL (BMP) (10/02/2021 7:28 EST) Sodium 130(L) 136 - 145 mmol/L 10/02/2021 8:44 EST [facility] Potassium 4.3 3.5 - 5.0 mmol/L 10/02/2021 8:44 [facility] Chloride 96 96 - 110 mmol/L 10/02/2021 8:44 [facility] CO2 Total 25 22 - 32 mmol/L 10/02/2021 8:44 [facility] Anion Gap 9 8 - 16 10/02/2021 8:44 [facility] Glucose 124(H) 70 - 100 mg/dL 10/02/2021 8:44 [facility] Calcium 8.4(L) 8.5 - 10.5 mg/dL 10/02/2021 8:44 [facility] BUN 21 10 - 26 mg/dL 10/02/2021 8:44 [facility] Creatinine 0.90 0.52 - 1.04 mg/dL 10/02/2021 8:44 [facility] eGFR 69 >60 mL/min/1.73 m2 10/02/2021 8:44 [facility] Blood VENOUS BLOOD / Unknown Venipuncture / Unknown 10/02/2021 7:28 EST 10/02/2021 8:10 EST Lc Luis MD CHEMISTRY & BLOOD GAS ORDERAB LES Final Result Performing Organization Address City/[facility]/ZIP Co de Phone Number [facility] [address] [place] [address] * CT ABDOMEN PELVIS W CONTRAST (10/01/2021 18:30 EST) Anatomical Region Laterality Modality Body, Abdomen, Pelvis, Abdomen and Pelvis Computed Tomography 10/02/2021 9:17 EST Impressions 10/02/2021 9:17 EST 1. ??There has been interval splenic artery embolization with infarction of greater than 75% of the spleen, associated with small free fluid and moderate perisplenic fat stranding. No organized fluid collection. No hemorrhage. Spleen remains markedly enlarged, 22 cm craniocaudad 2. 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 3. ??Trace left pleural effusion and mild left basilar atelectasis. 4. ??Cirrhosis and portal hypertension as seen on multiple priors. 5. ??Diverticulosis These findings were discussed by phone with Fausto Coats by Alba Denise MD on 10/01/2021 6:34 PM. I have personally reviewed the images and the above interpretation and agree with the findings. Narrative 10/02/2021 9:[address] ABDOMEN PELVIS W CONTRAST ??10/01/2021 5:00 PM Signs and Symptoms/Comments: ?? S/p partial splenic embolization, ongoing severe abd pain Technique: CT of the abdomen and pelvis was performed following the administration intravenous contrast; coronal and sagittal multiplanar reconstructions generated. Comparison: CT angiogram abdomen 07/16/2021 Findings: Lower chest: Trace left pleural effusion and mild left basilar atelectasis. No additional acute findings. Hepatobiliary: Cirrhotic configuration of liver. No focal mass. No significant biliary ductal dilatation given postcholecystectomy state, with prominence of the extrahepatic biliary tree unchanged.. Spleen, pancreas, adrenal glands: Interval splenic artery embolization now with infarction of greater than 75% of the splenic parenchyma. There is moderate fat stranding and a small amount of free fluid in the perisplenic space. No organized perisplenic fluid collection. No signs of hemorrhage on this single portal venous phase study. No acute findings in the pancreas or adrenal glands. Kidneys, ureters, bladder: No hydronephrosis.. Uterus, ovaries: Prior hysterectomy.. Bowel: No bowel obstruction. Sigmoid diverticulosis.. Peritoneal cavity / Subperitoneal space: Small volume free fluid between small bowel loops and perisplenic space. No organized fluid collection. No free air. Lymphovascular: Sequelae of portal hypertension with redemonstrated nonocclusive thrombus of the splenic vein and portal vein. No additional acute findings. Abdominal wall: Diffuse body wall edema, mainly dependently. No organized fluid collection. Prior mesh repair right lower quadrant Musculoskeletal: No acute findings. Insurance Service Representative: No additional abnormality identified. Procedure Note Scottie Xavier MD - 10/02/2021 CT ABDOMEN PELVIS W CONTRAST 10/01/2021 5:00 PM Signs and Symptoms/Comments: S/p partial splenic embolization, ongoing severe abd pain Technique: CT of the abdomen and pelvis was performed following the administrationintravenous contrast; coronal and sagittal multiplanar reconstructionsgenerated. Comparison: CT angiogram abdomen 07/16/2021 Findings: Lower chest: Trace left pleural effusion and mild left basilaratelectasis. No additional acute findings. Hepatobiliary: Cirrhotic configuration of liver. No focal mass. Nosignificant biliary ductal dilatation given postcholecystectomy state,with prominence of the extrahepatic biliary tree unchanged.. Spleen, pancreas, adrenal glands: Interval splenic artery embolization nowwith infarction of greater than 75% of the splenic parenchyma. There ismoderate fat stranding and a small amount of free fluid in the perisplenicspace. No organized perisplenic fluid collection. No signs of hemorrhageon this single portal venous phase study. No acute findings in thepancreas or adrenal glands. Kidneys, ureters, bladder: No hydronephrosis.. Uterus, ovaries: Prior hysterectomy.. Bowel: No bowel obstruction. Sigmoid diverticulosis.. Peritoneal cavity / Subperitoneal space: Small volume free fluid betweensmall bowel loops and perisplenic space. No organized fluid collection. Nofree air. Lymphovascular: Sequelae of portal hypertension with redemonstratednonocclusive thrombus of the splenic vein and portal vein. No additionalacute findings. Abdominal wall: Diffuse body wall edema, mainly dependently. No organizedfluid collection. Prior mesh repair right lower quadrant Musculoskeletal: No acute findings. Insurance Service Representative: No additional abnormality identified. IMPRESSION 1. There has been interval splenic artery embolization with infarction ofgreater than 75% of the spleen, associated with small free fluid andmoderate perisplenic fat stranding. No organized fluid collection. Nohemorrhage. Spleen remains markedly enlarged, 22 cm craniocaudad 2. Redemonstrated nonocclusive nonacute thrombus of the main portal andsplenic veins. 3. Trace left pleural effusion and mild left basilar atelectasis. 4. Cirrhosis and portal hypertension as seen on multiple priors. 5. Diverticulosis These findings were discussed by phone with Fausto Coats by Alba Linda 10/01/2021 6:34 PM. I have personally reviewed the images and the above interpretation andagree with the findings. us Lc Luis MD IMG CT ORDERABLES Final Resul t * (ABNORMAL) COMPLETE BLOOD COUNT (10/01/2021 7:27 EST) WBC 12.06 4.00 - 12.40 K/cmm 10/01/2021 8:27 [facility] RBC 3.74(L) 3.86 - 5.04 M/cmm 10/01/2021 8:27 [facility] Hemoglobin 10.5(L) 11.6 - 15.2 gm/dL 10/01/2021 8:27 [facility] HCT 31.7(L) 34.9 - 44.4 % 10/01/2021 8:27 [facility] MCV 85 81 - 98 fl 10/01/2021 8:27 [facility] MCH 28.1 26.7 - 33.3 pg 10/01/2021 8:27 [facility] MCHC 33.1 32.1 - 35.9 gm/dL 10/01/2021 8:27 [facility] RDW-CV 15.1(H) <14.7 % 10/01/2021 8:27 [facility] RDW-SD 45.7 <50.4 fl 10/01/2021 8:27 [facility] PLT 58(L) 141 - 377 K/cmm 10/01/2021 8:27 [facility] MPV 11.2 9.5 - 12.7 fl 10/01/2021 8:27 [facility] Blood VENOUS BLOOD / Unknown Venipuncture / Unknown 10/01/2021 7:27 EST 10/01/2021 8:19 EST Lc Luis MD HEMATOLOGY & PF4 ORDERABLES F inal Result Performing Organization Address City/[facility]/ZIP Co de Phone Number [facility] [address] [place] [address] * (ABNORMAL) BASIC METABOLIC PANEL (BMP) (10/01/2021 7:27 EST) Sodium 132(L) 136 - 145 mmol/L 10/01/2021 9:15 [facility] Potassium 4.3 3.5 - 5.0 mmol/L 10/01/2021 9:15 [facility] Chloride 97 96 - 110 mmol/L 10/01/2021 9:15 [facility] CO2 Total 25 22 - 32 mmol/L 10/01/2021 9:15 [facility] Anion Gap 10 8 - 16 10/01/2021 9:15 [facility] Glucose 132(H) 70 - 100 mg/dL 10/01/2021 9:15 [facility] Calcium 8.6 8.5 - 10.5 mg/dL 10/01/2021 9:15 [facility] BUN 18 10 - 26 mg/dL 10/01/2021 9:15 [facility] Creatinine 0.93 0.52 - 1.04 mg/dL 10/01/2021 9:15 [facility] eGFR 67 >60 mL/min/1.73 m2 10/01/2021 9:15 [facility] Blood VENOUS BLOOD / Unknown Venipuncture / Unknown 10/01/2021 7:27 EST 10/01/2021 8:36 EST Lc Luis MD CHEMISTRY & BLOOD GAS ORDERAB LES Final Result Performing Organization Address City/[facility]/ZIP Co de Phone Number [facility] [address] [place] [address] * (ABNORMAL) COMPLETE BLOOD COUNT (09/30/2021 7:19 EST) WBC 8.18 4.00 - 12.40 K/cmm 09/30/2021 7:44 [facility] RBC 3.63(L) 3.86 - 5.04 M/cmm 09/30/2021 7:44 [facility] Hemoglobin 9.8(L) 11.6 - 15.2 gm/dL 09/30/2021 7:44 [facility] HCT 30.6(L) 34.9 - 44.4 % 09/30/2021 7:44 [facility] MCV 84 81 - 98 fl 09/30/2021 7:44 [facility] MCH 27.0 26.7 - 33.3 pg 09/30/2021 7:44 [facility] MCHC 32.0(L) 32.1 - 35.9 gm/dL 09/30/2021 7:44 [facility] RDW-CV 15.2(H) <14.7 % 09/30/2021 7:44 [facility] RDW-SD 46.7 <50.4 fl 09/30/2021 7:44 [facility] PLT 41(L) 141 - 377 K/cmm 09/30/2021 7:44 [facility] MPV 10.5 9.5 - 12.7 fl 09/30/2021 7:44 [facility] Blood VENOUS BLOOD / Unknown Venipuncture / Unknown 09/30/2021 7:19 EST 09/30/2021 7:37 EST us Lc Luis MD HEMATOLOGY & PF4 ORDERABLES F inal Result [facility] [address] [place] [address] * (ABNORMAL) BASIC METABOLIC PANEL (BMP) (09/30/2021 7:19 EST) Sodium 135(L) 136 - 145 mmol/L 09/30/2021 8:15 [facility] Potassium 4.3 3.5 - 5.0 mmol/L 09/30/2021 8:15 [facility] Chloride 101 96 - 110 mmol/L 09/30/2021 8:15 [facility] CO2 Total 27 22 - 32 mmol/L 09/30/2021 8:15 [facility] Anion Gap 7(L) 8 - 16 09/30/2021 8:15 [facility] Glucose 126(H) 70 - 100 mg/dL 09/30/2021 8:15 [facility] Calcium 8.5 8.5 - 10.5 mg/dL 09/30/2021 8:15 [facility] BUN 15 10 - 26 mg/dL 09/30/2021 8:15 [facility] Creatinine 0.88 0.52 - 1.04 mg/dL 09/30/2021 8:15 [facility] eGFR 71 >60 mL/min/1.73 m2 09/30/2021 8:15 [facility] Blood VENOUS BLOOD / Unknown Venipuncture / Unknown 09/30/2021 7:19 EST 09/30/2021 7:41 EST us Lc Luis MD CHEMISTRY & BLOOD GAS ORDERAB LES Final Result Performing Organization Address City/State/[place] Co de Phone Number [facility] [address] [phone] * (ABNORMAL) COMPLETE BLOOD COUNT (09/29/2021 6:40 EST) WBC 10.62 4.00 - 12.40 K/cmm 09/29/2021 7:24 [facility] RBC 3.94 3.86 - 5.04 M/cmm 09/29/2021 7:24 [facility] Hemoglobin 11.0(L) 11.6 - 15.2 gm/dL 09/29/2021 7:24 [facility] HCT 33.9(L) 34.9 - 44.4 % 09/29/2021 7:24 [facility] MCV 86 81 - 98 fl 09/29/2021 7:24 [facility] MCH 27.9 26.7 - 33.3 pg 09/29/2021 7:24 [facility] MCHC 32.4 32.1 - 35.9 gm/dL 09/29/2021 7:24 [facility] RDW-CV 15.0(H) <14.7 % 09/29/2021 7:24 [facility] RDW-SD 47.3 <50.4 fl 09/29/2021 7:24 [facility] PLT 43(L) 141 - 377 K/cmm 09/29/2021 7:24 [facility] MPV 10.7 9.5 - 12.7 fl 09/29/2021 7:24 [facility] Blood VENOUS BLOOD / Unknown Venipuncture / Unknown 09/29/2021 6:40 EST 09/29/2021 7:12 EST us Lc Luis MD HEMATOLOGY & PF4 ORDERABLES F inal Result Performing Organization Address City/State/[place] Co de Phone Number [facility] [address] [place] [phone] * (ABNORMAL) BASIC METABOLIC PANEL (BMP) (09/29/2021 6:40 EST) Sodium 137 136 - 145 mmol/L 09/29/2021 7:54 [facility] Potassium 4.4 3.5 - 5.0 mmol/L 09/29/2021 7:54 [facility] Chloride 105 96 - 110 mmol/L 09/29/2021 7:54 [facility] CO2 Total 24 22 - 32 mmol/L 09/29/2021 7:54 [facility] Anion Gap 8 8 - 16 09/29/2021 7:54 [facility] Glucose 101(H) 70 - 100 mg/dL 09/29/2021 7:54 [facility] Calcium 8.8 8.5 - 10.5 mg/dL 09/29/2021 7:54 [facility] BUN 16 10 - 26 mg/dL 09/29/2021 7:54 [facility] Creatinine 0.91 0.52 - 1.04 mg/dL 09/29/2021 7:54 [facility] eGFR 68 >60 mL/min/1.73 m2 09/29/2021 7:54 [facility] Blood VENOUS BLOOD / Unknown Venipuncture / Unknown 09/29/2021 6:40 EST 09/29/2021 7:23 EST us Lc Luis MD CHEMISTRY & BLOOD GAS ORDERAB LES Final Result [facility] [address] [place] [address] * (ABNORMAL) COMPLETE BLOOD COUNT (09/28/2021 19:40 EST) WBC 4.54 4.00 - 12.40 K/cmm 09/28/2021 20:29 [facility] RBC 3.92 3.86 - 5.04 M/cmm 09/28/2021 20:29 [facility] Hemoglobin 11.0(L) 11.6 - 15.2 gm/dL 09/28/2021 20:29 [facility] HCT 33.5(L) 34.9 - 44.4 % 09/28/2021 20:29 [facility] MCV 86 81 - 98 fl 09/28/2021 20:29 [facility] MCH 28.1 26.7 - 33.3 pg 09/28/2021 20:29 [facility] MCHC 32.8 32.1 - 35.9 gm/dL 09/28/2021 20:29 [facility] RDW-CV 15.0(H) <14.7 % 09/28/2021 20:29 [facility] RDW-SD 46.9 <50.4 fl 09/28/2021 20:29 [facility] PLT 41(L) 141 - 377 K/cmm 09/28/2021 20:29 [facility] MPV 10.4 9.5 - 12.7 fl 09/28/2021 20:29 [facility] Blood VENOUS BLOOD / Unknown Venipuncture / Unknown 09/28/2021 19:40 EST 09/28/2021 19:53 EST us Lc Luis MD HEMATOLOGY & PF4 ORDERABLES F inal Result [facility] [address] [place] [address] * (ABNORMAL) BASIC METABOLIC PANEL (BMP) (09/28/2021 19:40 EST) Sodium 139 136 - 145 mmol/L 09/28/2021 20:49 [facility] Potassium 4.3 3.5 - 5.0 mmol/L 09/28/2021 20:49 [facility] Chloride 107 96 - 110 mmol/L 09/28/2021 20:49 [facility] CO2 Total 22 22 - 32 mmol/L 09/28/2021 20:49 [facility] Anion Gap 10 8 - 16 09/28/2021 20:49 [facility] Glucose 163(H) 70 - 100 mg/dL 09/28/2021 20:49 [facility] Calcium 8.6 8.5 - 10.5 mg/dL 09/28/2021 20:49 [facility] BUN 16 10 - 26 mg/dL 09/28/2021 20:49 [facility] Creatinine 0.97 0.52 - 1.04 mg/dL 09/28/2021 20:49 [facility] eGFR 63 >60 mL/min/1.73 m2 09/28/2021 20:49 [facility] Blood VENOUS BLOOD / Unknown Venipuncture / Unknown 09/28/2021 19:40 EST 09/28/2021 19:53 EST us Lc Luis MD CHEMISTRY & BLOOD GAS ORDERAB LES Final Result [facility] [address] [place] [address] * IR EMBOLIZATION (09/28/2021 11:55 EST) Anatomical Region Laterality Modality N/A X-Ray Angiograph y 09/29/2021 9:36 EST Impressions 09/29/2021 9:36 EST Successful partial splenic embolization. Dr. Yoo was present for and supervised the entire procedure. I have personally reviewed the images and the above interpretation and agree with the findings. Narrative 09/29/2021 9:36 EST SPLENIC ARTERY EMBOLIZATION ??09/28/2021 7:00 AM Clinical History/Comments: Hypersplenism. Needs partial splenic embolization. Comparison: CT July 16, 2021. TECHNIQUE: Timeout Informed consent was obtained after the risks and benefits of the procedure were discussed with the patient. The specific risks of this procedure which were discussed with the patient. A procedural time out was performed prior to the procedure, where the procedure, site, and patient identification was confirmed by all healthcare providers present in the room. Moderate sedation was provided with intravenous Versed and fentanyl while continuously monitoring the patient's blood pressure, heart rate, respiratory rate, and pulse oxygenation. Moderate sedation was provided with intravenous Versed and fentanyl while continuously monitoring the patient's blood pressure, heart rate, respiratory rate, and pulse oxygenation. Preprocedure Barbeau test of the left wrist was performed, demonstrating Barbeau type B plethysmography. Prior to the procedure, EMLA and nitroglycerin paste were applied to the patient's wrist. The patient was positioned supine on the angiographic table with left arm by his side. Sonographic evaluation of the left radial artery was performed, demonstrating it to be patent and of suitable caliber for radial access. A permanent image was stored. The skin and subcutaneous tissues were anesthetized with a mixture of 1% lidocaine and nitroglycerin. The left radial artery was accessed with a 21-gauge micropuncture needle under ultrasound guidance. A microwire was advanced and intraluminal positioning was confirmed with ultrasound. The needle was exchanged for a 5 Namibian slender sheath. Anti- spasmodic solution of 2.5 mg of verapamil, 3000 units of heparin, and 200 mcg of nitroglycerin was admixed with blood and administered via the sheath side-port over the course of one minute. A 1.5J Glidewire was preloaded into a catheter and the system was advanced through the descending thoracic aorta to the abdominal aorta. Using a 5 Namibian Karol catheter, celiac artery was selected (first order selection) and a digital subtraction angiogram was performed demonstrating patent normal arterial anatomy. Using a guidewire and catheter combination the splenic artery was accessed (second order selection) and a digital subtraction angiogram was performed demonstrating patent normal target splenic arterial supply of the inferior aspect of the spleen. The microcatheter was advanced through the base catheter into the distal splenic artery where angiography was performed. This revealed opacification of the inferior portion of the spleen. From this likely catheter position particle embolization was performed (embospheres 300 500 um in size soaked with gentamicin 80 mg). A repeat angiogram was performed revealing near stasis within the branch splenic arteries to the inferior portion of the spleen. Additional embolization using embospheres (500-700 um in size) was then performed until stasis was achieved. Coil embolization of this inferior portion of the spleen was then performed. Gelfoam slurry embolization was performed until stasis was achieved. Repeat angiography revealed occlusion of the splenic artery branches to the inferior spleen, with preserved flow to the mid and superior portion of the spleen. All sheaths, wires, and catheters were then removed and local hemostasis was obtained by TR band. There were no immediate post procedure complications. Contrast Contrast agent: Omnipaque 300 Contrast volume (mL): 60 Radiation Dose Fluoroscopy time (minutes): 20.6 ?? Reference air kerma (mGy): 2660 Kerma area product (mGy-cm2): 437,670 Procedure Note Ant Yoo MD - 09/29/2021 SPLENIC ARTERY EMBOLIZATION 09/28/2021 7:00 AM Clinical History/Comments: Hypersplenism. Needs partial splenicembolization. Comparison: CT July 16, 2021. TECHNIQUE: Timeout Informed consent was obtained after the risks and benefits of theprocedure were discussed with the patient. The specific risks of thisprocedure which were discussed with the patient. A procedural time outwas performed prior to the procedure, where the procedure, site, andpatient identification was confirmed by all healthcare providers presentin the room. Moderate sedation was provided with intravenous Versed andfentanyl while continuously monitoring the patient's blood pressure, heartrate, respiratory rate, and pulse oxygenation. Moderate sedation was provided with intravenous Versed and fentanyl whilecontinuously monitoring the patient's blood pressure, heart rate,respiratory rate, and pulse oxygenation. Preprocedure Barbeau test of theleft wrist was performed, demonstrating Barbeau type B plethysmography.Prior to the procedure, EMLA and nitroglycerin paste were applied to thepatient's wrist. The patient was positioned supine on the angiographictable with left arm by his side. Sonographic evaluation of the left radialartery was performed, demonstrating it to be patent and of suitablecaliber for radial access. A permanent image was stored. The skin andsubcutaneous tissues were anesthetized with a mixture of 1% lidocaine andnitroglycerin. The left radial artery was accessed with a 21-gaugemicropuncture needle under ultrasound guidance. A microwire was advancedand intraluminal positioning was confirmed with ultrasound. The needle wasexchanged for a 5 Namibian slender sheath. Anti-spasmodic solution of 2.5 mg of verapamil, 3000 units of heparin, and 200 mcg of nitroglycerinwas admixed with blood and administered via the sheath side-port over thecourse of one minute. A 1.5J Glidewire was preloaded into a catheter andthe system was advanced through the descending thoracic aorta to theabdominal aorta. Using a 5 Namibian Karol catheter, celiac artery was selected (first orderselection) and a digital subtraction angiogram was performed demonstratingpatent normal arterial anatomy. Using a guidewire and catheter combinationthe splenic artery was accessed (second order selection) and a digitalsubtraction angiogram was performed demonstrating patent normal targetsplenic arterial supply of the inferior aspect of the spleen. Themicrocatheter was advanced through the base catheter into the distalsplenic artery where angiography was performed. This revealedopacification of the inferior portion of the spleen. From this likelycatheter position particle embolization was performed (embospheres 300 500um in size soaked with gentamicin 80 mg). A repeat angiogram was performedrevealing near stasis within the branch splenic arteries to the inferiorportion of the spleen. Additional embolization using embospheres (500-700um in size) was then performed until stasis was achieved. Coil embolization of this inferior portion of the spleen was then performed.Gelfoam slurry embolization was performed until stasis was achieved.Repeat angiography revealed occlusion of the splenic artery branches tothe inferior spleen, with preserved flow to the mid and superior portionof the spleen. All sheaths, wires, and catheters were then removed and local hemostasiswas obtained by TR band. There were no immediate post procedurecomplications. Contrast Contrast agent: Omnipaque 300 Contrast volume (mL): 60 Radiation Dose Fluoroscopy time (minutes): 20.6 Reference air kerma (mGy): 2660 Kerma area product (mGy-cm2): 437,670 IMPRESSION Successful partial splenic embolization. Dr. Yoo was present for and supervised the entire procedure. I have personally reviewed the images and the above interpretation andagree with the findings. Ant Yoo MD IMG IR ORDERABLES Fi nal Result * TRANSFUSE PLATELETS (09/28/2021 10:53 EST) Blood Fausto Coats MD NURSING TREATMENT - BLOOD ADMINI STRATION Final Result * TRANSFUSE CRYOPRECIPITATE (09/28/2021 10:52 EST) Fausto Coats MD NURSING TREATMENT - BLOOD ADMINI STRATION Final Result * TRANSFUSE CRYOPRECIPITATE (09/28/2021 10:52 EST) Fausto Coats MD NURSING TREATMENT - BLOOD ADMINI STRATION Final Result * TYPE AND SCREEN (09/28/2021 8:31 EST) ABO O 09/28/2021 9:57 EST [facility] Rh Factor Positive 09/28/2021 9:57 EST [facility] Antibody Screen Negative 09/28/2021 9:57 EST [facility] Specimen Expires: 10/01/2021 @ 23:59 09/28/2021 9:57 EST [facility] Blood VENOUS BLOOD / Unknown Venipuncture / Unknown 09/28/2021 8:31 EST 09/28/2021 8:50 EST Fausto Coats MD BLOOD BANK TESTS Edited Result - Final Performing Organization Address City/[facility]/ZIP Co de Phone Number [facility] [address] [place] [address] * PREPARE CRYOPRECIPITATE (09/28/2021 7:58 EST) Product Code [id number] [facility] Donor Number [id number] [facility] Unit ABO O [facility] Unit Rh POS [facility] Unit Status TR^Transfuse [facility] Product Expiration Date [id number] [facility] Unit Blood Type Code [facility] Coding System [id number] [place] [facility] Blood VENOUS BLOOD / Unknown 09/28/2021 7:58 EST Fausto Coats MD BLOOD BANK ORDERABLES Final Resu lt Performing Organization Address City/[facility]/ZIP Co de Phone Number [facility] [address] [place] [address] * PREPARE PLATELETS (09/28/2021 7:58 EST) Product Code [id number] [facility] Donor Number [id number] [facility] Unit ABO B [facility] Unit Rh POS [facility] Unit Status TR^Transfuse [facility] Product Expiration Date [id number] [facility] Unit Blood Type Code 7300 [facility] Volume 305 [facility] Coding System [id number] [place] [facility] Blood 09/28/2021 7:58 EST Fausto Coats MD BLOOD BANK ORDERABLES Final Resu lt [facility] [address] [place] [address] * (ABNORMAL) PLATELET COUNT (09/28/2021 7:34 EST) PLT 40(L) 141 - 377 K/cmm 09/28/2021 8:03 EST [facility] Blood VENOUS BLOOD / Unknown Venipuncture / Unknown 09/28/2021 7:34 EST 09/28/2021 7:36 EST us Apolinar Corrlaes PA-C HEMATOLOGY & PF4 ORDERABL ES Final Result [facility] [address] [place] [address] documented in this encounter Visit Diagnoses Diagnosis Hypersplenism- Primary Hypersplenism 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HCC-CMS) At risk for inadequate pain control Pain crisis 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HCC-CMS) Pancytopenia (HCC) Other pancytopenia Chronic pain syndrome Cirrhosis of liver (HCC-CMS) (HCC) Cirrhosis of liver without mention of alcohol Obesity, Class II, BMI 35-39.9 Obesity, unspecified HUEY (obstructive sleep apnea) Obstructive sleep apnea (adult) (pediatric) COPD (chronic obstructive pulmonary disease) (HCC-CMS) (HCC) Chronic airway obstruction, not elsewhere classified Chronic respiratory failure with hypoxia (HCC-CMS) Chronic respiratory failure documented in this encounter Admitting Diagnoses Diagnosis Hypersplenism At risk for inadequate pain control Pain crisis documented in this encounter Administered Medications Inactive Administered Medications - up to 3 most recent administrations Medication Order MAR Action Action Date Dose Rate Site albuterol inhaler 90 mcg 90 mcg (1 Puff), inhalation, EVERY 4 HOURS PRN, Starting on Tue09/28/21 at 1914, Until Tue10/02/21 at 1701, Wheezing, Routine Given 09/29/2021 11:55 EST 90 mcg Given 09/28/2021 19:42 EST 90 mcg amoxicillin (AMOXIL) capsule 500 mg 500 mg, oral, EVERY 8 HOURS, 21 doses, First dose on Tue09/28/21 at 2100, Last dose on Tue10/05/21 at 1300, Routine Given 10/02/2021 13:14 EST 500 mg Given 10/02/2021 6:10 EST 500 mg Given 10/01/2021 20:16 EST 500 mg ampicillin-sulbactam (UNASYN) 3,000 mg in sodium chloride (NS MBP) 100 mL IVPB 3,000 mg (3 g), intravenous, Administer over 30 Minutes, Once (Time Specified), 1 dose, On Tue09/28/21 at 0730, Type of Therapy: Prophylaxis, Suspected Indication (Select all that apply): Other, Other Indication: n, ID Consult: No, STAT Given 09/28/2021 10:03 EST 3,000 mg budesonide-formoterol HFA (SYMBICORT) 160-4.5 mcg/actuation inhaler 2 Puff 2 Puff, inhalation, DAILY, First dose on Tue09/29/21 at 0900, Until Discontinued, Routine Given 10/02/2021 9:01 EST 2 Puffs Given 10/01/2021 8:33 EST 2 Puffs Given 09/30/2021 8:05 EST 2 Puffs calcium carbonate (TUMS) 200 mg calcium (500 mg) per chewable tablet tablet,chewable 1 Tablet 1 Tablet, oral, 4 TIMES DAILY PRN, Starting on Tue09/29/21 at 1216, Until Tue10/02/21 at 1701, Heartburn, Indigestion, Routine Given 09/29/2021 12:53 EST 1 Tablet dexAMETHasone (DECADRON) injection 10 mg 10 mg, intravenous, Once (Time Specified), 1 dose, On Tue09/28/21 at 1200, Routine Given 09/28/2021 13:00 EST 10 mg fentaNYL citrate (PF) injection 25-250 mcg 25-250 mcg, intravenous, ONCE PRN, 1 dose, Starting on Tue09/28/21 at 0805, Until Tue09/28/21 at 1146, Other, Radiology Procedure, Routine, Intraprocedure Given 09/28/2021 11:46 EST 250 mcg furosemide (LASIX) tablet 40 mg 40 mg, oral, DAILY, First dose (after last modification) on Tue09/29/21 at 0900, Until Discontinued, Routine Given 10/02/2021 9:34 EST 40 mg Given 10/01/2021 9:17 EST 40 mg Given 09/30/2021 8:32 EST 40 mg gentamicin (GARAMYCIN) IVPB 80 mg 80 mg, intravenous, Administer over 30 Minutes, Once PRN Procedure, 1 dose, Starting on Tue09/28/21 at 0800, Until Tue09/28/21 at 1128, Type of Therapy: Empiric, Suspected Indication (Select all that apply): Other, Other Indication: To be mixed with embospheres for splenic embolization., ID Consult: No, STAT Given 09/28/2021 10:58 EST 80 mg heparin 1,000 unit/mL injection 3,000 Units 3,000 Units, intercatheter, NOW X1, 1 dose, On Tue09/28/21 at 0815, Routine Given by Other 09/28/2021 8:30 EST 3,000 Units hydrocortisone sodium succinate (PF) (SOLU-CORTEF) injection 100 mg 100 mg, intravenous, Once (Without Time Specified), 1 dose, Starting on Tue09/28/21 at 0702, Until Tue09/28/21 at 0740, Routine Given 09/28/2021 7:40 EST 100 mg HYDROmorphone (DILAUDID) tablet 2 mg 2 mg, oral, EVERY 12 HOURS, First dose (after last modification) on Tue09/28/21 at 2100, Until Discontinued, Routine Given 09/29/2021 20:07 EST 2 mg Given 09/29/2021 8:03 EST 2 mg Given 09/28/2021 21:11 EST 2 mg HYDROmorphone (DILAUDID) tablet 2 mg 2 mg, oral, EVERY 3 HOURS PRN, Starting on Tue09/30/21 at 1245, Until Tue10/02/21 at 1701, Pain, Routine Given 10/02/2021 13:14 EST 2 mg Given 10/02/2021 9:34 EST 2 mg Given 10/02/2021 6:21 EST 2 mg Abdom en HYDROmorphone (DILAUDID) tablet 4 mg 4 mg, oral, EVERY 12 HOURS, First dose (after last modification) on Tue09/30/21 at 0900, Until Discontinued, Routine Given 09/30/2021 8:32 EST 4 mg HYDROmorphone (DILAUDID) tablet 4 mg 4 mg, oral, NOW X1, 1 dose, On Tue09/30/21 at 2345, Routine Given 10/01/2021 0:16 EST 4 mg HYDROmorphone (DILAUDID) tablet 4 mg 4 mg, oral, NOW X1, 1 dose, On Kirsten 10/01/21 at 2000, Routine Given 10/01/2021 20:16 EST 4 mg HYDROmorphone (PF) (DILAUDID) 0.5 mg/0.5 mL syringe 0.2 mg 0.2 mg, intravenous, NOW X1, 1 dose, On Tue09/29/21 at 0645, Routine Given 09/29/2021 6:26 EST 0.2 mg HYDROmorphone (PF) (DILAUDID) 0.5 mg/0.5 mL syringe 0.2-0.4 mg 0.2-0.4 mg, intravenous, EVERY 4 HOURS PRN, Starting on Tue09/28/21 at 1201, Until Tue09/28/21 at 1717, Pain, Routine Given 09/28/2021 14:28 EST 0.4 mg HYDROmorphone (PF) (DILAUDID) 0.5 mg/0.5 mL syringe 0.2-0.4 mg 0.2-0.4 mg, intravenous, EVERY 3 HOURS PRN, Starting on Tue09/28/21 at 1730, Until Tue09/29/21 at 2115, Pain, Routine Given 09/29/2021 20:47 EST 0.4 mg Given 09/29/2021 17:05 EST 0.4 mg Given 09/29/2021 14:08 EST 0.4 mg HYDROmorphone (PF) (DILAUDID) 0.5 mg/0.5 mL syringe 0.4-0.8 mg 0.4-0.8 mg, intravenous, EVERY 3 HOURS PRN, Starting on Tue09/29/21 at 2114, Until Tue09/30/21 at 2123, Pain, Routine Given 09/30/2021 20:37 EST 0.8 mg Given 09/30/2021 12:37 EST 0.8 mg Given 09/30/2021 9:31 EST 0.8 mg iohexoL (OMNIPAQUE 300) injection 100 mL 100 mL, intra-arterial, Once in imaging, 1 dose, Starting on Tue09/28/21 at 1149, Until Tue09/28/21 at 1149, Routine Given 09/28/2021 11:49 EST 28 mL iohexoL (OMNIPAQUE 300) injection 150 mL 150 mL, intra-arterial, Once in imaging, 1 dose, Starting on Tue09/28/21 at 1043, Until Tue09/28/21 at 1148, Routine Given 09/28/2021 11:48 EST 16 mL iohexoL (OMNIPAQUE 300) injection 150 mL 150 mL, intra-arterial, Once in imaging, 1 dose, Starting on Tue09/28/21 at 1043, Until Tue09/28/21 at 1148, Routine Given 09/28/2021 11:48 EST 16 mL iohexoL (OMNIPAQUE 350) solution 100 mL 100 mL, intravenous, Once in imaging, 1 dose, Starting on Kirsten 10/01/21 at 1810, Until Kirsten 10/01/21 at 1830, Routine, Imaging Protocol Orders Given 10/01/2021 18:30 EST 95 mL IV ipratropium-albuteroL (DUONEB) 0.5 mg-3 mg(2.5 mg base)/3 mL nebulizer solution 3 mL 3 mL, nebulization, EVERY 6 HOURS, First dose on Tue09/28/21 at 1930, Until Discontinued, Routine Given 09/29/2021 16:32 EST 3 mL ipratropium-albuteroL (DUONEB) 0.5 mg-3 mg(2.5 mg base)/3 mL nebulizer solution 3 mL 3 mL, nebulization, 4 TIMES DAILY, First dose (after last modification) on Tue09/29/21 at 2100, Until Discontinued, Routine Given 10/02/2021 8:59 EST 3 mL Given 10/01/2021 12:12 EST 3 mL Given 10/01/2021 8:31 EST 3 mL ipratropium-albuteroL (DUONEB) 0.5 mg-3 mg(2.5 mg base)/3 mL nebulizer solution 3 mL 3 mL, nebulization, EVERY 4 HOURS PRN, Starting on Tue10/02/21 at 1045, Until Tue10/02/21 at 1701, Wheezing, Routine levothyroxine (SYNTHROID) tablet 25 mcg 25 mcg, oral, DAILY BEFORE BREAKFAST, First dose on Tue09/29/21 at 0700, Until Discontinued, Routine Given 10/02/2021 6:10 EST 25 mcg Given 10/01/2021 6:38 EST 25 mcg Given 09/30/2021 6:00 EST 25 mcg lidocaine (PF) 10 mg/mL (1 %) injection 2 mg 2 mg, intradermal, PRN, 4 doses, Starting on Tue09/28/21 at 1356, Until Tue10/02/21 at 1701, peripheral intravenous catheter placement, Routine lidocaine-prilocaine (EMLA) 2.5-2.5 % cream topical, Once (Without Time Specified), 1 dose, Starting on Tue09/28/21 at 0702, Until Tue10/02/21 at 1701 methyl salicylate-menthol cream topical, NOW X1, 1 dose, On Kirsten 10/01/21 at 2000 Given 10/01/2021 20:21 EST midazolam (MDV) (VERSED) injection 0.5-10 mg 0.5-10 mg, intravenous, ONCE PRN, 1 dose, Starting on Tue09/28/21 at 0805, Until Tue09/28/21 at 1147, Sedation, Routine, Intraprocedure Given 09/28/2021 11:47 EST 7 mg nitroGLYcerin 25 mg/250 mL (100 mcg/mL) infusion 500 mcg 500 mcg, intravenous, CONTINUOUS, Starting on Tue09/28/21 at 0815, Until Tue09/28/21 at 1914, Routine, Intraprocedure New Bag 09/28/2021 10:11 EST 500 mcg ondansetron (PF) (ZOFRAN) injection 4 mg 4 mg, intravenous, Once (Without Time Specified), 1 dose, Starting on Tue09/28/21 at 0702, Until Tue09/28/21 at 0740, Routine Given 09/28/2021 7:40 EST 4 m g ondansetron (ZOFRAN-ODT) disintegrating tablet 4 mg 4 mg, oral, EVERY 4 HOURS PRN, Starting on Tue09/28/21 at 1914, Until Tue10/02/21 at 1701, Nausea, Routine Given 10/02/2021 10:50 EST 4 mg Given 10/02/2021 6:21 EST 4 mg Given 10/02/2021 0:06 EST 4 mg ondansetron (ZOFRAN-ODT) disintegrating tablet 4 mg 4 mg, oral, NOW X1, 1 dose, On Tue09/30/21 at 2330, Routine Given 09/30/2021 23:35 EST 4 mg polyethylene glycol 3350 (MIRALAX) packet 17 g 17 g, oral, DAILY PRN, Starting on Tue09/28/21 at 1356, Until Tue10/02/21 at 1701, Constipation, Routine ramelteon (ROZEREM) tablet 8 mg 8 mg, oral, AT BEDTIME PRN, Starting on Tue09/28/21 at 1356, Until Tue10/02/21 at 1701, Sleep, Routine senna (SENOKOT) tablet 2 Tablet 2 Tablet, oral, AT BEDTIME, First dose on Tue09/28/21 at 2100, Until Discontinued, Routine Given 09/29/2021 20:07 EST 2 Tablets Given 09/28/2021 20:31 EST 2 Tablets sertraline (ZOLOFT) tablet 50 mg 50 mg, oral, DAILY, First dose on Tue09/29/21 at 0900, Until Discontinued, Routine Given 10/02/2021 9:34 EST 50 mg Given 10/01/2021 9:17 EST 50 mg Given 09/30/2021 8:32 EST 50 mg sodium chloride 0.9 % (NS) infusion 50 mL/hr, intravenous, CONTINUOUS, Starting on Tue09/28/21 at 0730, Until Tue10/02/21 at 0003, Routine, Preprocedure New Bag 09/28/2021 7:30 EST 50 mL/hr 50 mL/hr spironolactone (ALDACTONE) tablet 50 mg 50 mg, oral, DAILY, First dose on Tue09/29/21 at 0900, Until Discontinued, Routine Given 10/02/2021 9:34 EST 50 mg Given 10/01/2021 9:17 EST 50 mg Given 09/30/2021 8:32 EST 50 mg traZODone (DESYREL) tablet 250 mg 250 mg, oral, AT BEDTIME PRN, Starting on Tue09/28/21 at 1914, Until Tue10/02/21 at 1701, Sleep, Routine Given 10/02/2021 0:06 EST 250 mg Given 09/30/2021 21:52 EST 250 mg Given 09/29/2021 20:49 EST 250 mg verapamil (ISOPTIN) injection 2.5 mg 2.5 mg, intra-arterial, NOW X1, 1 dose, On Tue09/28/21 at 0815, Routine Given by Other 09/28/2021 10:12 EST 2 .5 mg documented in this encounter Discontinued Medications Medication Sig Discontinue Reason Start Date End Da te HYDROmorphone (DILAUDID) 2 mg tablet Take 1 Tablet by mouth every 12 hours as needed for up to 28 days for Pain. Early fill for travel Daily Max: 4 mg Reorder 09/14/2021 10/01/2021 ondansetron (ZOFRAN) 4 mg tablet Take 1 Tab by mouth 2 times daily as needed for Nausea. 03/30/2021 10/02/2021 documented as of this encounter Active and Recently Administered Medications Times are shown in EST. Scheduled Medication Order 09/30/2021 10/01/2021 10/02/2021 amoxicillin (AMOXIL) capsule 500 mg 500 mg, oral, EVERY 8 HOURS, 21 doses, First dose on Tue09/28/21 at 2100, Last dose on Tue10/05/21 at 1300, Routine 0555 (Given - Provider: Kala Dalton RN)1347 (Given - Provider: Laxmi Tillman, RN)2148 (Given - Provider: Kala Dalton RN) 0455 (Given - Provider: Kala Dalton RN)1311 (Given - Provider: Elizabeth Morfin, KENN)2016 (Given - Provider: Kala Dalton, KENN) 0610 (Given - Provider: Morean Roth RN - Comment: [facility] care.)1314 (Given - Provider: Anthony Bales, KENN) budesonide-formoterol HFA (SYMBICORT) 160-4.5 mcg/actuation inhaler 2 Puff 2 Puff, inhalation, DAILY, First dose on Tue09/29/21 at 0900, Until Discontinued, Routine 0805 (Given - Provider: Hardik Gutiérrez, RT) 0833 (Given - Provider: Helen Sood RT) 0901 (Given - Provider: Poonam Jauregui RT) furosemide (LASIX) tablet 40 mg 40 mg, oral, DAILY, First dose (after last modification) on Tue09/29/21 at 0900, Until Discontinued, Routine 0832 (Given - Provider: Laxmi Tillman RN) 0917 (Given - Provider: Elizabeth Morfin, RN) 0934 (Given - Provider: Anthony Bales, KENN) HYDROmorphone (DILAUDID) tablet 4 mg (CANCELED) 4 mg, oral, EVERY 12 HOURS, First dose (after last modification) on Tue09/30/21 at 0900, Until Discontinued, Routine 0832 (Given - Provider: Laxmi Tillman RN) HYDROmorphone (DILAUDID) tablet 4 mg (COMPLETED) 4 mg, oral, NOW X1, 1 dose, On Tue09/30/21 at 2345, Routine 0016 (Given - Provider: Kala Dalton, KENN) HYDROmorphone (DILAUDID) tablet 4 mg (COMPLETED) 4 mg, oral, NOW X1, 1 dose, On Tue10/01/21 at 2000, Routine 2016 (Given - Provider: Kala Dalton, KENN) iohexoL (OMNIPAQUE 350) solution 100 mL (COMPLETED) 100 mL, intravenous, Once in imaging, 1 dose, Starting on Tue10/01/21 at 1810, Until Tue10/01/21 at 1830, Routine, Imaging Protocol Orders 1830 (Given - Provider: Lilly Garcia) ipratropium-albuteroL (DUONEB) 0.5 mg-3 mg(2.5 mg base)/3 mL nebulizer solution 3 mL (CANCELED) 3 mL, nebulization, 4 TIMES DAILY, First dose (after last modification) on Tue09/29/21 at 2100, Until Discontinued, Routine 0805 (Given - Provider: Hardik Gutiérrez, RT)1214 (Given - Provider: Hardik Gutiérrez RT)1522 (Given - Provider: Hardik Gutiérrez RT)2137 (Not Given - Provider: Kathleen East RT - Reason: Patient/family refused - Comment: patient too nauseous) 0831 (Given - Provider: Helen Sood RT)1212 (Given - Provider: Helen Sood RT)1630 (Not Given - Provider: Helen Sood RT - Reason: Patient/family refused)215 (Not Given - Provider: Norberto Connelly, RT - Reason: Patient/family refused) 0859 (Given - Provider: Poonam Jauregui RT) levothyroxine (SYNTHROID) tablet 25 mcg 25 mcg, oral, DAILY BEFORE BREAKFAST, First dose on Tue09/29/21 at 0700, Until Discontinued, Routine 0600 (Given - Provider: Kala Dalton RN) 0638 (Given - Provider: Kala Dalton RN) 0610 (Given - Provider: Morena Roth RN) lidocaine-prilocaine (EMLA) 2.5-2.5 % cream topical, Once (Without Time Specified), 1 dose, Starting on Tue09/28/21 at 0702, Until Tue10/02/21 at 1701 methyl salicylate-menthol cream (COMPLETED) topical, NOW X1, 1 dose, On Tue10/01/21 at 2000 2020 (Given - Provider: Kala Dalton RN) ondansetron (ZOFRAN-ODT) disintegrating tablet 4 mg (COMPLETED) 4 mg, oral, NOW X1, 1 dose, On Tue09/30/21 at 2330, Routine 2335 (Given - Provider: Kala Dalton RN) senna (SENOKOT) tablet 2 Tablet 2 Tablet, oral, AT BEDTIME, First dose on Tue09/28/21 at 2100, Until Discontinued, Routine 2148 (Not Given - Provider: Kala Dalton RN - Reason: Patient/family refused) 2020 (Not Given - Provider: Kala Dalton RN - Reason: Patient/family refused) sertraline (ZOLOFT) tablet 50 mg 50 mg, oral, DAILY, First dose on Tue09/29/21 at 0900, Until Discontinued, Routine 0832 (Given - Provider: Laxmi Tillman RN) 0917 (Given - Provider: Elizabeth Morfin RN) 0934 (Given - Provider: Anthony Bales, KENN) spironolactone (ALDACTONE) tablet 50 mg 50 mg, oral, DAILY, First dose on Tue09/29/21 at 0900, Until Discontinued, Routine 0832 (Given - Provider: Laxmi Tillman RN) 0917 (Given - Provider: Elizabeth Morfin RN) 0934 (Given - Provider: Anthony Bales RN) PRN Medication Order 09/30/2021 10/01/2021 10/02/2021 albuterol inhaler 90 mcg 90 mcg (1 Puff), inhalation, EVERY 4 HOURS PRN, Starting on Tue09/28/21 at 1914, Until Tue10/02/21 at 1701, Wheezing, Routine calcium carbonate (TUMS) 200 mg calcium (500 mg) per chewable tablet tablet,chewable 1 Tablet 1 Tablet, oral, 4 TIMES DAILY PRN, Starting on Tue09/29/21 at 1216, Until Tue10/02/21 at 1701, Heartburn, Indigestion, Routine HYDROmorphone (DILAUDID) tablet 2 mg 2 mg, oral, EVERY 3 HOURS PRN, Starting on Tue09/30/21 at 1245, Until Tue10/02/21 at 1701, Pain, Routine 1538 (Given - Provider: Laxmi Tillman RN)1838 (Given - Provider: Laxmi Tillman RN)2335 (Given - Provider: Kala Dalton RN) 0455 (Given - Provider: Kala Dalton RN)0917 (Given - Provider: Elizabeth Morfin RN)1311 (Given - Provider: Elizabeth Morfin RN)1638 (Given - Provider: Elizabeth Morfin RN)1944 (Given - Provider: Kala Dalton RN) 0006 (Given - Provider: Morena Roth RN)0318 (Given - Provider: Morena Roth RN)0621 (Given - Provider: Morena Roth RN)0934 (Given - Provider: Anthony Bales RN)1314 (Given - Provider: Anthony Bales RN) HYDROmorphone (PF) (DILAUDID) 0.5 mg/0.5 mL syringe 0.4-0.8 mg (CANCELED) 0.4-0.8 mg, intravenous, EVERY 3 HOURS PRN, Starting on Tue09/29/21 at 2114, Until Tue09/30/21 at 2123, Pain, Routine 0250 (Given - Provider: Fred Lloyd RN)0555 (Given - Provider: Kala Dalton RN)0931 (Given - Provider: Laxmi Tillman RN)1237 (Given - Provider: Laxmi Tillman, KENN)2036 (Given - Provider: Kala Dalton RN) ipratropium-albuteroL (DUONEB) 0.5 mg-3 mg(2.5 mg base)/3 mL nebulizer solution 3 mL 3 mL, nebulization, EVERY 4 HOURS PRN, Starting on Tue10/02/21 at 1045, Until Tue10/02/21 at 1701, Wheezing, Routine lidocaine (PF) 10 mg/mL (1 %) injection 2 mg 2 mg, intradermal, PRN, 4 doses, Starting on Tue09/28/21 at 1356, Until Tue10/02/21 at 1701, peripheral intravenous catheter placement, Routine ondansetron (ZOFRAN-ODT) disintegrating tablet 4 mg 4 mg, oral, EVERY 4 HOURS PRN, Starting on Tue09/28/21 at 1914, Until Tue10/02/21 at 1701, Nausea, Routine 2037 (Given - Provider: Kala Dalton RN) 1733 (Given - Provider: Elizabeth Morfin RN) 0006 (Given - Provider: Morena Roth, RN)0621 (Given - Provider: Morena Roth, RN)1050 (Given - Provider: Anthony Bales RN) polyethylene glycol 3350 (MIRALAX) packet 17 g 17 g, oral, DAILY PRN, Starting on Tue09/28/21 at 1356, Until Tue10/02/21 at 1701, Constipation, Routine ramelteon (ROZEREM) tablet 8 mg 8 mg, oral, AT BEDTIME PRN, Starting on Tue09/28/21 at 1356, Until Tue10/02/21 at 1701, Sleep, Routine traZODone (DESYREL) tablet 250 mg 250 mg, oral, AT BEDTIME PRN, Starting on Tue09/28/21 at 1914, Until Tue10/02/21 at 1701, Sleep, Routine 2151 (Given - Provider: Kala Dalton RN) 0006 (Given - Provider: Morena Roth RN) documented in this encounter Orders Medications Ordered That Luc ht Not Have Been Administered Count Last Ordered Date First Ordered Date ipratropium-albuteroL (DUONE B) 0.5 mg-3 mg(2.5 mg base)/3 mL nebulizer solution 3 mL 1 10/02/2021 HYDROmorphone (DILAUDID) tablet 2 mg 2 07/202109/28/2021 flumazenil (ROMAZICON) injection 0.2 mg 1 1 11/28/2020 furosemide (LASIX) tablet 20 mg 1 heparin 1,000 unit/mL inject ion 1,000 Units 1 09/28/2021 HYDROmorphone (PF) (DILAUDID ) 0.5 mg/0.5 mL syringe 1 09/28/2021 HYDROmorphone (PF) (DILAUDID ) 0.5 mg/0.5 mL syringe 0.25 mg 1 09/28/2021 lidocaine (PF) 10 mg/mL (1 % ) injection 2 mg 3 09/28/2021 lidocaine-prilocaine (EMLA) 2.5-2.5 % cream 1 09/28/2021 naloxone (NARCAN) injection 0.4 mg 1 2020 nitroGLYCERIN (NITROGLYN) 2 % ointment 0.5 Inch 1 09/28/2021 nitroGLYcerin 25 mg/250 mL ( 100 mcg/mL) infusion 200 mcg 1 09/28/2021 nitroGLYcerin 25 mg/250 mL ( 100 mcg/mL) infusion 500 mcg 1 09/28/2021 polyethylene glycol 3350 (PA RALAX) packet 17 g 1 09/28/2021 ramelteon (ROZEREM) tablet 8 mg 1 verapamil (ISOPTIN) injection 2.5 mg 1 06/2021 Diet Count Last Ordered Date First Orde red Date DISCHARGE DIET 1 10/01/2021 Nursing Count Last Ordered Date First Orde red Date ACTIVITY INSTRUCTIONS 1 10/01/2021 BATHING INSTRUCTIONS 1 10/01/2021 DRIVING INSTRUCTIONS 1 10/01/2021 CONTRAINDICATION TO ANTICOAG ULATION THERAPY 1 09/28/2021 Respiratory Care Count Last Ordered Date First Ordered Date EVAL FOR HOME OXYGEN USE 1 10/02/2021 DRY POWDERED OR METERED DOSE INHALER 3 09/2109/29/2021 NEBULIZER TX INTERMITTENT 11 10/01/2021 IV Count Last Ordered Date First Orde red Date IV REQUEST 1 09/28/2021 Admission Count Last Ordered Date First Orde red Date ADMIT TO INPATIENT 1 09/29/2021 Discharge Count Last Ordered Date First Orde red Date DISCHARGE PATIENT 1 10/02/2021 Legal Count Last Ordered Date First Orde red Date MISCELLANEOUS DISCHARGE INSTRUCTIONS 1 09/21 documented in this encounter Care Teams [employer] 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
--- OUTSIDE RECORDS SUMMARY | 2024-11-22 17:11 | XMS_ITS | Encounter Summary ---
Author Organization [facility] Address [address] [place] [address] Care Team Providers Care Technician'S Helper Name Role Phone Emigdio Veronica MD Primary Care Provider + Starr Paige MD Unavailable [phone] Reason for Visit * Auth/Cert Specialty Diagnoses / Procedures [facility] Referred To Contact Diagnoses GI bleeding GI bleed Referral ID Status Reason Start Date Expiration Date Visits Re quested Visits Authorized [id number] 1 1 Encounter Details Date Type Department Care Team (Late st Contact Info) Description 10/14/2021 16:00 EST Anesthesia Event [facility] - Main [address] [address] Lucie Dominguez MD [address] [phone] Lashanda Pa CRNA [address] [phone] Anesthesia Record Procedure Summary Procedure Name Responsible Anesthesiologist Anesthesia Start Time Anesthesia Stop Time UPPER ENDOSCOPY (EGD) Lucie Dominguez MD 10/14/21 1600 10/14/21 1626 Events Date Time Event Comment 10/14/2021 1600 An Start The patient was re-evaluated immediately before moderate or deep sedation use, before anesthesia induction, or before the anesthesia procedure. 1600 An Start Data 1605 Anesthesia Ready 1624 Handoff to RN I completed my handoff to the receiving nurse during which we: 1. Identified the patient 2. Identified the responsible provider 3. Reviewed the pertinent medical history 4. Discussed the surgical course 5. Reviewed intra-op anesthesia management and issues during anesthesia 6. Set expectations for post-procedure period 7. Allowed opportunity for questions and acknowledgement of understanding. 1625 an stop data 1626 An Stop Meds Name Total fentanyl citrate (PF) injection 50 mcg ketAMINE 5 mL prefilled syringe 15 mg midazolam 1 mg/mL 2 mL vial 1 mg propOFol (DIPRIVAN) injection 220 mg lactated ringers (LR) infusion Cannot be calculated * Agents Name O2 N2O Air Aux O2 flow * Blood No blood administrations on file. 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 Complete vitals history is available in the Epicflowsheets. Vitals Value Taken Time BP 87/40 10/14/21 1624 Temp 10/14/21 1625 Resp 19 10/14/21 1624 Pulse From Oximetry 87 BPM 10/14/21 1624 SpO2 99 % 10/14/21 1624 Last Pain Score - Numeric Pain Level (Scale 1-10): 9 Type of Anesthesia - MAC Anesthesia Post Evaluation Level of consciousness: awake Temperature status: normothermia Respiratory status: airway patent and nasal cannula Cardiovascular status: stable Hydration status: adequate Nausea/Vomiting: none Pain management: adequate Post-Op Assessment: patient tolerated procedure well with no complications Patient participation: able to participate * Anesthesia Preprocedure Evaluation - Lucie Dominguez MD - 10/14/2021 1251 EST Images from the original note were not included. Anesthesia Preprocedure Evaluation Patient Medical History, including Anesthesia History reviewed. Chart and Nursing Notes reviewed, including NPO status and Medication History. Additional ROS/History Findings: From IM note: Tara Yun??is a 61 y.o.??female??with a PMHx significant for decompensated NASHcirrhosis (portal htn, hepatic encephalopathy, small esophageal varices on EGD in 2019, aldactone, lasix) w/ associated thrombocytopenia/ hypersplenism??s/p partial splenic embolization (09/28/21), por wale vein thrombosis, Hep C, asthma (albuterol), COPD (no home O2, symbicort, duoneb), HUEY not on CPAP, hypothyroidism (synthroid), & anxiety/depression (zoloft, trazodone)??who presented to ED with abdominal pain and melena and admitted for GI bleed. EGD showing large clean based duodenal ulcer(+mild portal gastropathy, no esophageal varices). Biopsy negative for H. Pylori, dysplasia, and malignancy. Hgb downtrending, today at 7.1 after being transfused yesterday. Will undergo an EGD this afternoon, getting a unit transfused this PM. Continue diuresis today. Also on dilaudid, zofran and rozerem. Last upper endoscopy was on 10/09/21. Mall III, full ROM, multiple missing teeth. Received ketamine 15mg, versed 2mg, propofol 160mg. .WBC/Hgb/Hct/Plts: 5.27/7.1/22.2/196 (10/14 723) transfused x2 10/13, pending another unit .Na/K/Cl/CO2: 135/4.1/101/31 (10/14 0722) .PT/INR/PTT: 15.0/1.3/29 (10/14 723) COVID NEGATIVE 10/08/21 EKG 10/08/21 SINUS RHYTHM @ [address]IFIC T-WAVE ABNORM[address]ITY CT angio abdomen 10/08/21: 1. No evidence of active arterial extravasation [...] cirrhosis with stigmata of portal venous hypertension. Allergies Allergen Reactions ??? Metoclopramide Nausea Only, [...] Reglan [Metoclopramide Hcl] Rash Review of Systems All other systems reviewed and are negative. Past Medical History: Diagnosis Date ??? Anemia ??? Anxiety ??? Asthma 12/10/2020 currently not taking - mild persistent - see dr. Veronica 11/20/2021 ??? Bleeding disorder (HCC-CMS) ([facility]) ??? Bursitis right shoulder ??? C. difficile colitis 07/25/2015 Hospitalized after kidney stone removal ??? Chronic ITP (idiopathic thrombocytopenia) (HCC-CMS) ([facility]) 12/10/2020 - see 11/20/2020 Dr. Glenys Denton, (managed by Starr Paige MD) ??? Chronic kidney disease slow to come back ??? Cirrhosis of liver (HCC-CMS) (HCC) ??? Clotting disorder (HCC-CMS) (HCC) ??? Community acquired pneumonia january 2021 ??? COPD exacerbation (HCC-CMS) (HCC) 04/26/2020 ??? Depression ??? Drug-seeking behavior Per Dr Amelia Tijerina and notes from [facility] patient misconstrued information to several [...] (+) Hypersplenism syndrome Physical Exam Airway Mallampati: II TM distance: >3 FB Neck ROM: limited Cardiovascular Rate: normal (+) murmur Comments: 2/6 SVEN Dental Pulmonary Breath sounds clear to auscultation Abdominal Anesthesia Plan ASA 3 Anesthesia Type - MAC Anesthesia plan and risks discussed. Informed consent obtained from patient. Specific risks discussed were dental injury. PAT Note Notes from 09/14/21 through 10/14/21 No notes of this type exist for this encounter. documented in this encounter Plan of Treatment Upcoming Encounters Date Type Department Care Team (Late st Contact Info) Description 01/04/2025 13:00 EST Office Visit [facility] Ophthalmology - [address] [phone] Gagandeep [place] MD [address] [place] [address] 5 [place] [address] 02/11/2025 13:30 EDT Telemedicine [facility] Hematology & Oncology - [address] [phone] Dana Padilla MD [address] [place] [address], [facility] 2 [place] [address] documented as of this encounter Visit Diagnoses Not on filedocumented in this encounter Administered Medications Inactive Administered Medications - up to 3 most recent administrations Medication Order MAR Action Action Date Dose Rate Site fentaNYL citrate (PF) injection intravenous, PRN, Starting on Tue10/14/21 at 1604, Until Tue10/14/21 at 1626, Routine, Anesthesia Intraprocedure Given 10/14/2021 16:04 EST 50 mcg ketAMINE in NaCl, iso-osmotic (KETALAR) 50 mg/5 mL (10 mg/mL) IV injection intravenous, PRN, Starting on Tue10/14/21 at 1604, Until Tue10/14/21 at 1626, Routine, Anesthesia Intraprocedure Given 10/14/2021 16:04 EST 15 mg lactated ringers (LR) infusion intravenous, FA IP EQF CONTINUOUS PRN FOR ONE STEP MEDS, Starting on Tue10/14/21 at 1601, Until Tue10/14/21 at 1626, Routine, Anesthesia Intraprocedure New Bag 10/14/2021 16:01 EST midazolam (PF) (VERSED) injection intravenous, PRN, Starting on Tue10/14/21 at 1604, Until Tue10/14/21 at 1626, Routine, Anesthesia Intraprocedure Given 10/14/2021 16:04 EST 1 mg propOFol (DIPRIVAN) injection intravenous, PRN, Starting on Tue10/14/21 at 1604, Until Tue10/14/21 at 1626, Routine, Anesthesia Intraprocedure Given 10/14/2021 16:11 EST 10 mg Given 10/14/2021 16:04 EST 50 mg Given 10/14/2021 15:57 EST 50 mg documented in this encounter Care Teams Technician'S Helper Relationship Specialty Start Date End Date Emigdio Veronica MD [address] [place] [phone] PCP - General Internal Medicine - Primary Care 05/22/20 02/21/24 Starr Paige MD [address] [place] [phone] Hematology 10/08/21 06/09/22 documented as of this encounter
--- OUTSIDE RECORDS SUMMARY | 2024-11-22 17:11 | XMS_ITS | Encounter Summary ---
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 Not on [...] Edie Langley RN documented in this encounter Plan of Treatment Upcoming Encounters Date Type Department Care Team (Late st Contact Info) Description 01/04/2025 13:00 EST Office Visit [facility] Ophthalmology - [address] [phone] Gagandeep [place] MD [address] [place] [address], Level [address] [place] [phone] 02/11/2025 13:30 EDT Telemedicine [facility] Hematology & Oncology - [address] [phone] Dana Padilla MD [address] [place] [address], [facility] 2 [place] [phone] documented as of this encounter Visit Diagnoses Not on filedocumented in this encounter Care Teams Nurse Aide Relationship Specialty Start Date End Date Emigdio Veronica MD 2 [place] [phone] PCP - General Internal Medicine - Primary Care 05/22/20 02/21/24 documented as of this encounter
--- OUTSIDE RECORDS SUMMARY | 2024-11-22 17:11 | XMS_ITS | Encounter Summary ---
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 Paige Date: 09/21/21 Time: 12:14 PM No changes to treatment plan at this time * Telephone Encounter - Maritza Beltran - 09/21/2021 1208 EDT Non Clinical Staff notified with Critical Results Ordering Provider: CHRISTOPHER Date and Time Test was Performed: 09/21/21@11:04AM Results: WBC 0.84 Result Read Back and Verified: yes Nursing/Provider Notified:YES Nursing/Provider Name: ALBA Date: 09/21/21 Time: 12:08 PM documented in this encounter Plan of Treatment Upcoming Encounters Date Type Department Care Team (Late st Contact Info) Description 01/04/2025 13:00 EST Office Visit [facility] Ophthalmology - [address] [phone] Gagandeep [place] MD [address] [place] [address], [facility] 5 [place] [phone] 02/11/2025 13:30 EDT Telemedicine [facility] Hematology & Oncology [address] [phone] Dana Padilla MD [address] [place] [address], Level [address] [place] [phone] documented as of this encounter Visit Diagnoses Not on filedocumented in this encounter Care Teams Manager Marketing Communication Relationship Specialty Start Date End Date Emigdio Veronica MD [address] [place] [phone] PCP - General Internal Medicine - Primary Care 05/22/20 02/21/24 documented as of this encounter
--- OUTSIDE RECORDS SUMMARY | 2024-11-22 17:11 | XMS_ITS | Encounter Summary ---
Author Organization [facility] Address [address] [place] [address] Care Team Providers Care Manager Bridge Name Role Phone Emigdio Veronica MD Primary Care Provider + Starr Paige MD Unavailable [phone] Reason for Visit * Reason Onset Date Comments Appointment Related 10/09/2021 Encounter Details Date Type Department Care Team (Late st Contact Info) Description 10/09/2021 Telephone [facility] Cancer Center Hematology & Oncology - [facility] [address] [place], [place] [phone] Starr Paige MD [address] [place] [address] Appointment Related Social History Tobacco Use Types [...] Industry 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 Date 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 Date 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 [...] Author No 10/08/2021 22:00 Lala Perace RN * Do you have serious difficulty [...] Lala Pearce, RN documented in this encounter Miscellaneous Notes * Telephone Encounter - Leonora Wesley - 10/09/2021 0834 EST pts 10/09 now a phone call as pt is in patient documented in this encounter Plan of Treatment Upcoming Encounters Date Type Department Care Team (Late st Contact Info) Description 01/04/2025 13:00 EST Office Visit [facility] Ophthalmology - [address] [phone] Gagandeep [place] MD [address] [place] [address] 5 [place] [phone] 02/11/2025 13:30 EDT Telemedicine [facility] Hematology & Oncology [address] [phone] Dana Padilla MD [address] [place] [address], [facility] 2 [place] [address] documented as of this encounter Visit Diagnoses Not on filedocumented in this encounter Care Teams Manager Bridge Relationship Specialty Start Date End Date Emigdio Veronica MD [address] [place] [phone] PCP - General Internal Medicine - Primary Care 05/22/20 02/21/24 Starr Paige MD [address] [place] [phone] Hematology 10/08/21 06/09/22 documented as of this encounter
--- OUTSIDE RECORDS SUMMARY | 2024-11-22 17:11 | XMS_ITS | Encounter Summary ---
Author Organization [facility] Address [address] [place] [address] Care Team Providers Care Slurry Control Tender Name Role Phone Emigdio Veornica MD Primary Care Provider + Starr Paige MD Unavailable [phone] Dana Padilla MD Unavailable Reason for Visit * Reason Onset Date Comments Hospital Discharge Follow Up 10/06/2021 Encounter Details Date Type Department Care Team (Late st Contact Info) Description 10/06/2021 Telephone [facility] Hematology & Oncology - [facility] [address] [place], [place] [phone] Starr Paige MD [address] [place] [address] Hospital Discharge Follow Up Social History Tobacco [...] 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 Calling to make a follow up appointment with the provider. documented in this encounter Plan of Treatment Upcoming Encounters Date Type Department Care Team (Late st Contact Info) Description 01/04/2025 13:00 EST Office Visit [facility] Ophthalmology - [address] [phone] Gagandeep [place] MD [address] [place] [address] 5 [place] [phone] 02/11/2025 13:30 EDT Telemedicine [facility] Hematology & Oncology [address] [phone] Dana Padilla MD [address] [place] [address], [facility] 2 [place] [address] documented as of this encounter Visit Diagnoses Not on filedocumented in this encounter Additional Health Concerns Infection Onset Date Last Indicated Resolved Time R/O COVID-19 10/08/2021 10/08/2021 10/08/2021 18:1 8 EST R/O COVID-19 12/14/2021 12/14/2021 12/19/2021 22:1 5 EST documented as of this encounter Care Teams Slurry Control Tender Relationship Specialty Start Date End Date Emigdio Veronica MD [address] [place] [phone] PCP - General Internal Medicine - Primary Care 05/22/20 02/21/24 Starr Paige MD [address] [place] [address] Hematology 10/08/21 06/09/22 Dana Padilla MD [address] [place] [address], Level [address] [place] [phone] Hematology 01/13/22 06/09/22 documented as of this encounter
--- OUTSIDE RECORDS SUMMARY | 2024-11-22 17:11 | XMS_ITS | Encounter Summary ---
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 pateint currently hospitalized. documented in this encounter Plan of Treatment Upcoming Encounters Date Type Department Care Team (Late st Contact Info) Description 01/04/2025 13:00 EST Office Visit [facility] Ophthalmology - [address] [phone] Gagandeep [place] MD [address] [place] [address], [facility] 5 [place] [phone] 02/11/2025 13:30 EDT Telemedicine [facility] Hematology & Oncology - [address] [phone] Dana Padilla MD [address] [facility], [facility] 2 [place] [phone] documented as of this encounter Visit Diagnoses Not on filedocumented in this encounter Care Teams Media Center Assistant Relationship Specialty Start Date End Date Emigdio Veronica MD [address] [place] [phone] PCP - General Internal Medicine - Primary Care 05/22/20 02/21/24 Starr Paige MD [address] [place] [phone] Hematology 10/08/21 06/09/22 documented as of this encounter
--- OUTSIDE RECORDS SUMMARY | 2024-11-22 17:11 | XMS_ITS | Encounter Summary ---
Author Organization [facility] Address [address] [place] [address] Care Team Providers Care Nuclear Medicine Pet Ct Technologist Name Role Phone Emigdio Veronica MD Primary Care Provider + Reason for Visit * Reason Onset Date Comments Pre-procedure 09/22/2021 Encounter Details Date Type Department Care Team (Late st Contact Info) Description 09/22/2021 Telephone [facility] Interventional Rad Clinic - 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 Platelet mapping order dc'd as per Dr Yoo. * Telephone Encounter - Irene Monte RN - 09/22/2021 0919 EDT Interventional Radiology Appt: Partial Splenic Embo on 09/28/21 Phone call made to patient to review the following pre-procedure prep & information: I spoke with Tara and relayed the following information: Check into registration (3rd floor) by 645AM -plan for 1 night stay in the hospital post procedure, you will need a tram driver home -per request brief overview of splenic embo reviewed Covid-19 Policy: -test required 3 days prior to the procedure, regardless of vaccination status. [facility] for [phone] POST TEST: ??? mask at all times in public ??? do not eat indoors at restaurants or go into bars ??? avoid large gatherings ??? maintain distance from unmasked people ??? avoid contact with anyone COVID-19 positive / exhibiting respiratory illness symptoms ??? (no longer need to stay home from work or keep kids out of school) Please call if you have s/s of Covid 19 or concern you have been exposed. Current Visitor Policy: -Entrances into all [facility] [place] buildings and clinics will be restricted and everyone who enters will be asked the purpose of their visit to the medical center. -Two healthy support people are permitted to escort a patient undergoing any procedure requiring sedation or general anesthesia. Pre Sedation Guidelines: 1)Have no solid food or liquids containing fats, including milk, after midnight before your procedure. 2) On the day of your procedure, you should have only water or other clear liquids until 3 hours before the scheduled time of your procedure. . Acceptable Liquids (until 5am) -Water -Clear Fruit Juices-Apple, Grape, Cranberry -Gatorade -black coffee/tea- If cream is added expect a delay or need to reschedule the procedure -Clear carbonated beverages Unacceptable (DO NOT Drink) -[place] juice (orange or pineapple) -clear broth -Gelatin and clear broth are not considered clear liquids for pre-sedation/pre-operative fasting asthese may be protein based and thus may potentially delay gastric emptying. -apple sauce -no pepsi /coke etc 3) Take your medications as directed with small sips of water at any time prior to your procedure. Medications - take prescribed medications. You should take as needed pain meds as needed. Meds to hold: pt confirms they are not on any blood thinning medication ??? Do not take Ibuprofen ( Motrin, Advil) for 24 hours prior to the procedure or Aleve (Naproxen) for 2 days prior ??? Full strength Aspirin should not be taken for 5 days prior to this procedure. If you are on a baby Aspirin , this is okay to continue. ( taking any of the above medications could cause a delay in your procedure) -Tylenol (acetaminophen) may be taken for pain. -If you are started on any new medications prior to this appointment, please call [facility] to update - Bring a list of current medications/allergy list -Shower night before or morning of procedure -Leave all valuables/medications at home (other than glasses/hearing aids).If patient uses a CPAP, they should bring it to the appt. pt verbalized understanding, all questions answered. [facility] RN phone number provided, should they have any further questions prior to this appointment. documented in this encounter Plan of Treatment Upcoming Encounters Date Type Department Care Team (Late st Contact Info) Description 01/04/2025 13:00 EST Office Visit [facility] Ophthalmology - [address] [id number] Gagandeep Rome MD [address] [place] [address], [address] [place] [phone] 02/11/2025 13:30 EDT Telemedicine [facility] Hematology & Oncology - [address] [phone] Dana Padilla MD [address] [place] [address], [facility], [address] [place] [phone] documented as of this encounter Results * (ABNORMAL) THROMBELASTOGRAPH (09/22/2021 11:48 EDT) Reaction Time 8.3 5.0 - 10.0 mins 09/22/2021 16:41 [facility] K Time 8.3(H) 1.0 - 3.0 mins 09/22/2021 16:41 [facility] Angle 47.0(L) 53.0 - 72.0 Degrees 09/22/2021 16:41 [facility] Maximum Amplitude 30.9(L) 50.0 - 70.0 mm 09/22/2021 16:41 [facility] Interpretation Thrombelastograph results show decreased value for the angle and the MA. ??This finding is suggestive of thrombocytopenia or platelet dysfunction. Comment: ??Patient is noted to be thrombocytopenic at time of sample collection. There was significant resident/fellow involvement in the diagnostic evaluation of this case. By the signature below, the attending physician certifies that they have reviewed the results of laboratory testing from the described specimen(s) and personally confirmed the above diagnosis rendered by Dr. Brock Chung. Jordan Kauffman MD 09/22/21 16:41 09/22/2021 16:41 [facility] Patient Location EP3 Radiology 09/22 16:41 [facility] Estimated % Lysis 0.3 0.0 - 15.0 % 09/22/2021 16:41 [facility] Blood VENOUS BLOOD / Unknown Venipuncture / Unknown 09/22/2021 11:48 EDT 09/22/2021 11:54 EDT us Ant Yoo MD HEMATOLOGY & PF4 ORD ERABLES Final Result [facility] [address] [place] [address] documented in this encounter Visit Diagnoses Diagnosis Cirrhosis (HCC-CMS)- Primary Cirrhosis of liver without mention of alcohol documented in this encounter Care Teams Nuclear Medicine Pet Ct Technologist Relationship Specialty Start Date End Date Emigdio Veronica MD [address] [place] [phone] PCP - General Internal Medicine - Primary Care 05/22/20 02/21/24 documented as of this encounter
--- OUTSIDE RECORDS SUMMARY | 2024-11-22 17:11 | XMS_ITS | Encounter Summary ---
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 Not [...] Info) Description 01/04/2025 13:00 EST Office Visit [facility] Ophthalmology - [facility] [address] [place], [place] [address] Gagandeep Rome MD [address] [facility], [address] [place] [phone] 02/11/2025 13:30 EDT Telemedicine [facility] Hematology & Oncology - [address] [phone] Dana Padilla MD [address] [facility], [address] [place] [address] documented as of this encounter Results * COVID-19 TESTING (09/25/2021 9:39 EDT) COVID-19 rt-PCR Result Negative Negative 09/26/2021 15:23 EDT [facility] Comment: This test has [...] developed and its performance characteristics determined by [facility]. It has not been cleared or approved [...] testing. This test is based on the CDC COVID-19 Emergency Use Authorization (EUA) assay, with minor modification as defined by the FDA Performed on the Envestnet 7 Pro RT-PCR System. Performing Lab [facility] 09/26/2021 15:23 EDT [facility] Swab BOTH ANTERIOR NARES / Unknown Swab / Unknown 09/25/2021 9:39 EDT 09/25/2021 9:39 EDT us Ant Yoo MD MICROBIOLOGY - GENER AL ORDERABLES Final Result [facility] [address] [place] [address] documented in this encounter Visit Diagnoses Diagnosis Pre-procedure lab exam- Primary Pre-procedural laboratory examination documented in this encounter Care Teams Phone Screener Relationship Specialty Start Date End Date Emigdio Veronica MD [address] [place] [phone] PCP - General Internal Medicine - Primary Care 05/22/20 02/21/24 documented as of this encounter
--- OUTSIDE RECORDS SUMMARY | 2024-11-22 17:11 | XMS_ITS | Encounter Summary ---
Author Organization [facility] Address [address] [place] [address] Care Team Providers Care Post Closing Specialist Name Role Phone Emigdio Veronica MD Primary Care Provider + Starr Paige MD Unavailable [phone] Reason for Visit * Reason Comments Other post surgery bleedin g, crap is projectile horrible odor. very SOB stool was tarry and now its thinner black * Auth/Cert Specialty Diagnoses / Procedures Referred By Serene huitron Referred To Contact Diagnoses GI bleeding GI bleed Referral ID Status Reason Start Date Expiration Date Visits Re quested Visits Authorized [id number] 1 1 Encounter Details Date Type Department Care Team (Latest Contact Info) Description 10/08/2021 13:15 EST Office Visit [facility] [place] [address] [place], [place] [phone] Emigdio Veronica MD [address] [place] [phone] Tachycardia (Primary Dx); Pallor; Melena; Generalized abdominal pain; Nausea and vomiting, intractability of vomiting not specified, unspecified vomiting type Social History Tobacco Use [...] 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 Answer Date of Assessment Author No 10/08/2021 14:41 EST Lillie Vela RN * Are you blind or do [...] Edie Langley RN documented in this encounter Progress Notes * Emigdio Veronica MD - 10/08/2021 1315 EST Tara Yun is a 61 y.o. female with a PMHx of thrombocytopenia PRIMARY CARE PROVIDER: Emigdio Veronica CHIEF COMPLAINT: Chief Complaint Patient presents with ??? Other post surgery bleeding, crap is projectile horrible odor. very SOB stool was tarry and now its thinner black SUBJECTIVE: Tara Yun presents today for a post-hospitalization visit. Unfortunately she presents in acute distress. She reports severe abdominal pain and intractable nausea since discharge [facility] the [facility] on 10[facility]21 following a planned splenic infarction procedure by interventional radiology on09/29/21. She states that she has not eaten since 09/28/21 and has struggled to keep down normal fluids. She confirms numerous episodes of emesis and states she is having melanotic stools every 3 hours. Although her systolic pressures were noted in normal range she was tachycardic and shaky while being roomed. ROS as above Medications and history reviewed. No current facility-administered medications for this visit. No current outpatient medications on file. Facility-Administered Medications Ordered in Other Visits Medication Route Frequency ??? albuterol (ACCUNEB) 2.5 mg /3 mL (0.083 %) nebulizer solution ??? albuterol (ACCUNEB) nebulizer solution 2.5 mg nebulization BID ??? albuterol (ACCUNEB) nebulizer solution 2.5 mg nebulization Q4H PRN ??? atropine 0.1 mg/mL syringe 0.5 mg intravenous PRN ??? budesonide-formoterol HFA (SYMBICORT) 160-4.5 mcg/actuation inhaler 2 Puff inhalation BID ??? cefTRIAXone (ROCEPHIN) 1,000 mg in sodium chloride (NS MBP) 50 mL IVPB intravenous Q24H ??? furosemide (LASIX) tablet 20 mg oral DAILY ??? HYDROmorphone (DILAUDID) tablet 4 mg oral Q4H PRN ??? ipratropium-albuteroL (DUONEB) 0.5 mg-3 mg(2.5 [...] %) injection 2 mg intradermal PRN ??? naloxone (NARCAN) injection 0.2 mg intravenous PRN ??? ondansetron (PF) (ZOFRAN) injection 4 mg intravenous Q4H PRN ??? ondansetron (PF) (ZOFRAN) injection 4 mg intravenous PRN ??? pantoprazole (PROTONIX) tablet 40 mg oral BID ??? ramelteon (ROZEREM) tablet 8 mg [...] mL intravenous Q8H ??? spironolactone (ALDACTONE) tablet 50 mg oral DAILY ? ? sucralfate (CARAFATE) suspension 1 g oral QID AC & HS ??? traZODone (DESYREL) tablet 200 mg oral QHS OBJECTIVE: BP 128/69 Pulse (!) 112 Temp 37.1 ??C (98.8 ??F) Resp 22 Wt 93 kg (205 lb) BMI 35.19 kg/m?? Gen: Ill appearing middle-age female in moderate distress HEENT: EOMI, PERRL, conjunctiva pale, no scleral injection/ icterus CV: Tachycardic rate with normal rhythm, no murmurs, rubs or gallops Pulm: CTAB, good air movement, no wheezes, rales, or rhonchi Abd: +BS, soft, tender in all quadrants, ND, hepatosplenomegaly appreciated Extrem: +1 edema to knees in bilateral lower extremities, warm and well perfused Skin: No rashes or erythema, intact Neuro: A&Ox3, CN II through XII grossly intact Recent Labs/Imaging: Reviewed in epic ASSESSMENT and PLAN: Tara was seen today for a posthospitalization visit Diagnoses and all orders for this visit: Tachycardia, Pallor, Melena, Generalized abdominal pain, Nausea and vomiting: Discussed with the patient that given her severe symptoms the next appropriate step in evaluation is ER presentation to ensure her safety. Discussed that given her recent IR procedure and reports of melena in the setting of chronic thrombocytopenia there is a significant risk that she might be suffering from a unseen GIbleed at this time. Patient expressed understanding and willingness to present to the ER she notes that she is unable to drive herself and is willing to present there via EMS. -EMS notified -ER adult triage notified F/u: No follow-ups on file. Some of this note was transcribed with Waitsupating software. While it was proofread, it may still contain unnoticed grammatical or word errors due to incorrect transcribing. Emigdio Veronica MD 10/10/2021 14:44 documented in this encounter Plan of Treatment Upcoming Encounters Date Type Department Care Team (Late st Contact Info) Description 01/04/2025 13:00 EST Office Visit [facility] Ophthalmology - [address] [phone] Gagandeep Rome MD [address] [place] [address], [facility] [address] [place] [phone] 02/11/2025 13:30 EDT Telemedicine [facility] Hematology & Oncology - [address] [phone] Dana Padilla MD [address] [place] [address], [facility] [address] [place] [phone] documented as of this encounter Visit Diagnoses Diagnosis Tachycardia- Primary Tachycardia, unspecified Pallor Melena Blood in stool Generalized abdominal pain Abdominal pain, generalized Nausea and vomiting, intractability of vomiting not specified, unspecified vomiting type documented in this encounter Additional Health Concerns Infection Onset Date Last Indicated Resolved Time R/O COVID-19 10/08/2021 10/08/2021 10/08/2021 18:1 8 EST documented as of this encounter Care Teams Post Closing Specialist Relationship Specialty Start Date End Date Emigdio Veronica MD [address] [place] [phone] PCP - General Internal Medicine - Primary Care 05/22/20 02/21/24 Starr Paige MD [address] [place] [phone] Hematology 10/08/21 06/09/22 documented as of this encounter
--- OUTSIDE RECORDS SUMMARY | 2024-11-22 17:11 | XMS_ITS | Encounter Summary ---
Author Organization [facility] Address [address] [place] [address] Care Team Providers Care Python Web Developer Name Role Phone Emigdio Veronica MD Primary Care Provider + Reason for Visit * Reason Onset Date Comments Appointment Related 10/06/2021 Encounter Details Date Type Department Care Team (Late st Contact Info) Description 10/06/2021 Telephone [facility] Hematology & Oncology - [place] [address] [place], [place] [phone] Starr Paige MD [address] [place] [phone] Appointment Related Social History Tobacco Use [...] 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 Not on [...] * Telephone Encounter - Leonora Wesley - 10/06/2021 1618 EST Called pt with 10/09 in clinic zoom documented in this encounter Plan of Treatment Upcoming Encounters Date Type Department Care Team (Late st Contact Info) Description 01/04/2025 13:00 EST Office Visit [facility] Ophthalmology - [address] [phone] Gagandeep Rome MD [address] [place] [address] [address] [place] [phone] 02/11/2025 13:30 EDT Telemedicine [facility] Hematology & Oncology - [address] [phone] Dana Padilla MD [address] [place] [address], [facility] [address] [place] [phone] documented as of this encounter Visit Diagnoses Not on filedocumented in this encounter Care Teams Python Web Developer Relationship Specialty Start Date End Date Emigdio Veronica MD [address] [place] [phone] PCP - General Internal Medicine - Primary Care 05/22/20 02/21/24 documented as of this encounter
--- OUTSIDE RECORDS SUMMARY | 2024-11-22 17:11 | XMS_ITS | Encounter Summary ---
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 Answer Date of Assessment Author No 10/08/2021 14:41 Lillie Dueñas RN * Are you blind or do [...] [facility] Ophthalmology - [address] [phone] Gagandeep Rome MD 111 [facility], [facility] 5 [place] [phone] 02/11/2025 13:30 EDT Telemedicine [facility] Hematology & Oncology - [address] [address] Dana Padilla MD [address] [place] [address], [facility] 2 [place] [phone] documented as of this encounter Results * FOLATE (10/19/2021 13:29 EST) Pathologist [facility] Folate 8.1 See Note ng/mL 10/19/2021 14:35 EST [facility] Comment: Reference Ranges for Folate: Deficient: ?< 3.4 ng/mL Indeterminate: ??3.4 - 5.4 ng/mL Normal: ? > 5.4 ng/mL The results of this assay can be falsely elevated due to the consumption of Biotin. Blood VENOUS BLOOD / Unknown Venipuncture / Unknown 10/19/2021 13:29 EST 10/19/2021 13:33 EST us Starr Paige MD CHEMISTRY & BLOOD GAS ORDER YANN Final Result [facility] [address] [place] [address] * VITAMIN B12 (10/19/2021 13:29 EST) Vitamin B12 497 211 - 911 pg/mL 10/19/2021 14:37 EST [facility] Blood VENOUS BLOOD / Unknown Venipuncture / Unknown 10/19/2021 13:29 EST 10/19/2021 13:33 EST us Starr Paige MD CHEMISTRY & BLOOD GAS ORDER YANN Final Result Performing Organization Address [facility] Co de Phone Number [facility] [address] [place] [address] * FERRITIN (10/19/2021 13:29 EST) Ferritin 179 10 - 291 ng/mL 10/19/2021 14:32 EST [facility] Blood VENOUS BLOOD / Unknown Venipuncture / Unknown 10/19/2021 13:29 EST 10/19/2021 13:33 EST Starr Paige MD CHEMISTRY & BLOOD GAS ORDER YANN Final Result Performing Organization Address [facility] de Phone Number [facility] [address] [place] [address] documented in this encounter Visit Diagnoses Diagnosis Anemia, unspecified type- Primary documented in this encounter Additional Health Concerns Infection Onset Date Last Indicated Resolved Time R/O COVID-19 10/08/2021 10/08/2021 10/08/2021 18:1 8 EST documented as of this encounter Care Teams Mysql Database Administrator Relationship Specialty Start Date End Date Emigdio Veronica MD [address] [place] [phone] PCP - General Internal Medicine - Primary Care 05/22/20 02/21/24 Starr Paige MD [facility] [address] [place] [phone] Hematology 10/08/21 06/09/22 documented as of this encounter
--- OUTSIDE RECORDS SUMMARY | 2024-11-22 17:11 | XMS_ITS | Encounter Summary ---
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 Not [...] Visit [facility] Ophthalmology - [address] [phone] Gagandeep Rome MD 111 [facility], [facility] [address] [place] [phone] 02/11/2025 13:30 EDT Telemedicine [facility] [place] [facility] [place] Hematology & Oncology - [address] [phone] Dana Padilla MD 111 [facility], [facility] 2 [place] [phone] documented as of this encounter Procedures Procedure Name Priority Date/Time Associated Diagnosis Comments HN LAB PATH REVIEW - COAG Today 2020 11:48 EDT Cirrhosis (HCC-CMS) (HCC) (HCC-CMS) THROMBELASTOGRAPH Routine 09/22/2021 11: 48 EDT Cirrhosis (HCC-CMS) (HCC) (HCC-CMS) documented in this encounter Results * HN LAB PATH REVIEW - COAG (09/22/2021 11:48 EDT) Pathology Review Comment - Coagulation Jordan Kauffman MD 09/22/2021 19:55 EDT [facility] Blood VENOUS BLOOD / Unknown Venipuncture / Unknown 09/22/2021 11:48 EDT 09/22/2021 11:54 EDT us Ant Yoo MD HEMATOLOGY & PF4 ORD ERABLES Final Result [facility] [address] [place] [address] * (ABNORMAL) THROMBELASTOGRAPH (09/22/2021 11:48 EDT) Reaction Time 8.3 5.0 - 10.0 mins 09/22/2021 16:41 [facility] K Time 8.3(H) 1.0 - 3.0 mins 09/22/2021 16:41 [facility] Angle 47.0(L) 53.0 - 72.0 Degrees 09/22/2021 16:41 [facility] Maximum Amplitude 30.9(L) 50.0 - 70.0 mm 09/22/2021 16:41 [facility] Interpretation Thrombelastograph results show decreased [...] Jordan Kauffman MD 09/22/21 16:41 09/22/2021 16:41 [facility] Patient Location EP3 Radiology 09/22 16:41 [facility] Estimated % Lysis 0.3 0.0 - 15.0 % 09/22/2021 16:41 [facility] Blood VENOUS BLOOD / Unknown Venipuncture / Unknown 09/22/2021 11:48 EDT 09/22/2021 11:54 EDT us Ant Yoo MD HEMATOLOGY & PF4 ORD ERABLES Final Result [facility] [address] [place] [address] documented in this encounter Visit Diagnoses Diagnosis Cirrhosis (HCC-CMS) Cirrhosis of liver without mention of alcohol documented in this encounter Care Teams Crosscutter Rolled Glass Relationship Specialty Start Date End Date Emigdio Veronica MD [address] [place] [phone] PCP - General Internal Medicine - Primary Care 05/22/20 02/21/24 documented as of this encounter
--- OUTSIDE RECORDS SUMMARY | 2024-11-22 17:11 | XMS_ITS | Encounter Summary ---
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 Yoo (IR attending), requesting direct admission post-procedure. Patient is a 61-year-old woman with a past medical history of pancytopenia, hypersplenism, splenic vein thrombosis, and cirrhosis of the liver, who will undergo splenic embolization by IR per referral from her integrated logistics programs director, Dr. Paige. Dr. Richter is requesting direct admission after this procedure for pain control and possible antibiotics. I accepted the patient for admission to the general medicine service. Patient's procedure will occur approximately on September 28. Van Fuentes MD 09/18/2021 19:52 documented in this encounter Plan of Treatment Upcoming Encounters Date Type Department Care Team (Late st Contact Info) Description 01/04/2025 13:00 EST Office Visit [facility] Ophthalmology [address] [phone] Gagandeep Rome MD [address] [place] [address], [facility] [address] [place] [phone] 02/11/2025 13:[address] [facility] Hematology & Oncology [address] [phone] Dana Padilla MD [address] [place] [address], Level [address] [place] [phone] documented as of this encounter Visit Diagnoses Not on filedocumented in this encounter Care Teams Mold Checker Relationship Specialty Start Date End Date Emigdio Veronica MD [address] [place] [phone] PCP - General Internal Medicine - Primary Care 05/22/20 02/21/24 documented as of this encounter
--- OUTSIDE RECORDS SUMMARY | 2024-11-22 17:11 | XMS_ITS | Encounter Summary ---
Author Organization [facility] Address [address] [place] [address] Care Team Providers Care Dipper And Baker Name Role Phone Emigdio Veronica MD Primary Care Provider + Starr Paige MD Unavailable [phone] Reason for Visit * Reason Onset Date Comments Coordination Of Care 10/09/2021 Encounter Details Date Type Department Care Team (Late st Contact Info) Description 10/09/2021 Telephone [facility] Hematology & Oncology - [facility] [address] [place] [address] Alba Gage, RN Coordination Of Care Social History Tobacco Use Types Packs/Day [...] 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 Paige today as she is admitted inpatient. Willschedule follow up when patient is discharged. Patient verbalizes understanding. documented in this encounter Plan of Treatment Upcoming Encounters Date Type Department Care Team (Late st Contact Info) Description 01/04/2025 13:00 EST Office Visit [facility] Ophthalmology - [address] [phone] Gagandeep Rome MD [address] [place] [address], [facility] 5 [place] [phone] 02/11/2025 13:30 EDT Telemedicine [facility] Hematology & Oncology [address] [phone] Dana Padilla MD [address] [place] [address], [facility] 2 [place] [phone] documented as of this encounter Visit Diagnoses Not on filedocumented in this encounter Care Teams Dipper And Baker Relationship Specialty Start Date End Date Emigdio Veronica MD [address] [place] [phone] PCP - General Internal Medicine - Primary Care 05/22/20 02/21/24 Starr Paige MD [address] [place] [phone] Hematology 10/08/21 06/09/22 documented as of this encounter
--- OUTSIDE RECORDS SUMMARY | 2024-11-22 17:11 | XMS_ITS | Encounter Summary ---
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 Unknown Last Refill Date: 04/10/21 90 tablets with 1 refill Last Visit Date with Ordering Provider: 09/18/21 Next Non-Acute Visit Date Scheduled with Care Team: 10/20/21 ESEQUIEL MENON RN 10/06/2021 9:57 documented in this encounter Plan of Treatment Upcoming Encounters Date Type Department Care Team (Late st Contact Info) Description 01/04/2025 13:00 EST Office Visit [facility] Ophthalmology - [address] [phone] Gagandeep Rome MD [address] [place] [address] [address] [place] [phone] 02/11/2025 13:30 EDT Telemedicine [facility] Hematology & Oncology - [address] [phone] Dana Padilla MD [address] [place] [address], [facility] 2 [place] [phone] documented as of this encounter Visit Diagnoses Not on filedocumented in this encounter Discontinued Medications Medication Sig Discontinue Reason Start Date End Da te sertraline (ZOLOFT) 50 mg tablet Take 1 Tab by mouth daily. 04/10/2021 10/06/2021 documented as of this encounter Care Teams Transport Nurse Relationship Specialty Start Date End Date Emigdio Veronica MD [address] [place] [phone] PCP - General Internal Medicine - Primary Care 05/22/20 02/21/24 documented as of this encounter
--- OUTSIDE RECORDS SUMMARY | 2024-11-22 17:12 | XMS_ITS | Encounter Summary ---
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 Yun in regards to their referral to [facility] Interventional Radiology for consideration of IR embolization (unspecified) for cirrhosis I have scheduled them for a consultation with Dr. Yoo on September 16 at 11:30AM, I requested she check in a few minutes early. This visit will take place via in person consultation per patients request. I will inform the ordering office of this scheduled date and time. Ms. Yun verbalized understanding and agrees with Plan of Care. No cognitive barriers were identified during this conversation. She has our contact number to call with questions. Fernanda Austin documented in this encounter Plan of Treatment Upcoming Encounters Date Type Department Care Team (Late st Contact Info) Description 01/04/2025 13:00 EST Office Visit [facility] Ophthalmology - [address] [phone] Gagandeep Rmoe MD [address] [place] [address], [facility] 5 [place] [phone] 02/11/2025 13:30 EDT Telemedicine [facility] Hematology & Oncology - [address] [phone] Dana Padilla MD [address] [place] [address], [facility] 2 [place] [phone] documented as of this encounter Visit Diagnoses Not on filedocumented in this encounter Care Teams Ladle Filler Relationship Specialty Start Date End Date Emigdio Veronica MD [address] [place] [phone] PCP - General Internal Medicine - Primary Care 05/22/20 02/21/24 documented as of this encounter
--- OUTSIDE RECORDS SUMMARY | 2024-11-22 17:12 | XMS_ITS | Encounter Summary ---
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 No / Unsure 07/30/2021 16:18 EDT documented as of this encounter Functional [...] Office Visit [facility] Ophthalmology - [address] [phone] Gagandeep Rome MD [address] [place] [address], [facility] 5 [place] [phone] 02/11/2025 13:30 EDT Telemedicine [facility] Cancer Center Hematology & Oncology - [address] [phone] Dana Padilla MD [address] [place] [address], Level [address] [place] [phone] documented as of this encounter Visit Diagnoses Not on filedocumented in this encounter Care Teams Plastics Design Engineer Relationship Specialty Start Date End Date Emigdio Veronica MD 2 [place] [phone] PCP - General Internal Medicine - Primary Care 05/22/20 02/21/24 documented as of this encounter
--- OUTSIDE RECORDS SUMMARY | 2024-11-22 17:12 | XMS_ITS | Encounter Summary ---
Author Organization [facility] Address [address] [place] [address] Care Team Providers Care Salesperson Furniture Name Role Phone Emigdio Veronica MD Primary Care Provider + Reason for Visit * Reason Comments Telemedicine Video Visit * Follow Up (Other (Specify in Question)) - Order Cancelled Specialty Diagnoses / Procedures Referred By Serene huitron Referred To Contact Hematology and Oncology Diagnoses Portal vein thrombosis Ryan Lan MD Phone: tel: fax: Starr Paige MD Phone: tel: fax: Referral ID Status Reason Start Date Expiration Date Visits Requested Visits Authorized [id number] Order Cancelled Specialty Services Required 04/24/2021 1 1 Encounter Details Date Type Department Care Team (Late st Contact Info) Description 09/09/2021 10:30 EDT Telemedicine [facility] Center Hematology & Oncology - Main Counce [address], [place] [id number] Starr Paige MD [address] [place] [address] Pancytopenia (HCC) (HCC-CMS) (Primary Dx) Social History Tobacco Use [...] 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 Not on file Not o n file documented as of this encounter Last Filed Vital Signs Vital Sign Reading Time Taken Comments Blood Pressure 108/57 09/09/2021 1029 EDT Pulse 67 09/09/2021 1029 EDT Temperature 36.2 ??C (97.1 ??F) 09/09/2021 1029 EDT Respiratory Rate 17 09/09/2021 1029 EDT Oxygen Saturation 97% 09/09/2021 1029 EDT Inhaled Oxygen Concentration - - Weight 98.6 kg (217 lb 4.8 oz) 09/09/2021 1029 E DT Height 163.5 cm (5' 4.37) 09/09/2021 1029 EDT Body Mass Index 36.87 09/09/2021 1029 EDT documented in this encounter Functional Status * Are you deaf or do you have serious difficulty hearing? Answer Date of Assessment Author No 06/29/2021 21:11 DAVIDT Barbara Cross RN * Are you blind or do you have serious difficulty seeing, even when wearing glasses? Answer Date of Assessment Author No 06/29/2021 21:11 Barbara Kim RN * Do you have serious difficulty walking or climbing stairs? (5 years old or older) Answer Date of Assessment Author No 06/29/2021 21:11 EDaBrbara Cantrell RN * Do you have difficulty dressing or bathing? (5 years old or older) Answer Date of Assessment Author No 06/29/2021 21:11 EDBarbara Cantrell RN * Because of a physical, mental, [...] documented in this encounter Progress Notes * Starr Paige MD - 09/09/2021 1030 EDT [facility] HEMATOLOGY AND ONCOLOGY PROGRESS / FOLLOWUP NOTE: 09/09/21 10:51 DIAGNOSIS: Pancytopenia associated with liver cirrhosis and portal hypertension with hypersplenism. Chronic non occlusive portal vein thrombosis CURRENT THERAPY: Lovenox 40 mg SC daily since 04-23-2021 - on hold since 05-28 due to thrombocytopenia, frequent falls aind intermittent GIB PRIOR THERAPY: Perioperative lusutrombopag oral: 3 mg once daily for 7 days. Begin lusutrombopag 8 to 14 days prior to the scheduled procedure. Patients should undergo procedure 2 to 8 days after the last lusutrombopag dose. Obtain a platelet count prior to therapy administration and not more than 2 days before the procedure. Patient did not have major platelet increment: plt count increased up to 68K CC: follow up HISTORY OF PRESENT ILLNESS: 61 y.o. y.o. years old white female with past medical history of asthma, hyperlipidemia, GERD, history of nonalcoholic fatty liver disease, history of hepatitis C as well as known decompensated livercirrhosis with portal hypertension, severe hepatosplenomegaly as well as history of hepatic encephal opathy is being transferring care from [facility] to [facility] because of relocation. Patient is following Dr. Ijeoma Smith, GI Department in [facility] for long-standing decompensated liver cirrhosis, portal hypertension and hepatic encephalopathy. She was also formerly seen by hematology oncology clinic in [facility], underwent bone marrow biopsy for pancytopenia in 2012 that showed mature trilineage hematopoiesis with no underlying hematopoietic abnormalities. Her most recent ultrasound of the spleen in May 2017 showed marked splenomegaly and no splenic vein thrombosis. She presents to the clinic to discuss further management. Her main complaints today are occasional fatigue, loss of appetite, episodes of nausea vomiting and diarrhea, muscle and bony weakness as well as numbness and tingling in her hands and feet, anxiety. Patient states for about 7 or 8 months she continues to have persistent hematuria with bright red blood coming out from the urine. She formerly had a urine stone as well as urinary stent was formerly seen by Dr. Dickens although then relocated to [place]. Her most recent CBC showed WBC 1.99 with ANC 1.3, resolution of anemia, stable thrombocytopenia at 54K. his CMP profile is otherwise unremarkable with normal liver function tests. Her most recent ultrasound of the abdomen show enlarged spleen measuring 21 x 12.6 x 17.3 cm. NormalDoppler floor within the splenic artery and vein. Interval history: Patient is back to the clinic for a scheduled follow up. The patient recently changed the provider and now following Dr Mcfarlane for her ongoing medical issues, she was started on Lasix and spironolactone as new medications. She currently endorses fatigue and insomnia. No recent hosp italizations or additional changes in the medications. She is no longer seeing Dr. Smith in hepatology in [facility]. TIPS and liver transplant listing are on stand by. Since last time she was seen she was admitted to the hospital with acute on chronic RUQ abdominal pain??and nausea. CT scan from the ED showed evidence of cirrhosis and a patent portal vein but with thrombosis that may be slightly increased in size since November 2019. Very slight peripancreatic inflammation was also noted with a normal lipase. No other lab or imaging evidence of acute abdomen wasappreciated. Hematology was consulted. They recommended starting enoxaparin 40 mg daily for an indefinite period. Her pain and nausea slowly got better over the next two days via supportive therapy, namely ondansetron for nausea and PO dilaudid PRN for pain Interval history: Patient is in the clinic for a follow up. She is feeling the same, weight is up and down on lasix and spironolactone. 2 falls in the last 2 months, intermittent dark stool. No other medications/changes in current doses, unable to take AC due to thrombocytopenia and intermittent bleeding. ROS: 10 review of system is completed and is negative, except for the pertinent positives noted above. PAST MEDICAL HISTORY: Past Medical History: Diagnosis Date ??? [...] leg edema - see 11/20/2020 Dr. Cy Coreas&Tray ??? Hypersplenism syndrome ??? Hypersplenism syndrome ??? Hypotension 70-80/30-40 usually ??? Hypothyroidism ??? Joint replaced 199912/10/2020 nya knees ??? QUIROZ (nonalcoholic steatohepatitis) ??? Oxygen dependent 12/10/2020 HS ??? Pancytopenia (HCC) ??? Rheumatoid arthritis ??? Shortness of breath ??? Sleep apnea ??? Thrombocytopenia (HCC-CMS) (HCC) 12/10/2020 - see 11/20/2020 Dr. Glenys Denton, (managed by Starr Paige MD) ??? Thyroid disease PAST SURGICAL HISTORY: Past Surgical History: Procedure Laterality Date ??? APPENDECTOMY ??? BONE MARROW BIOPSY ??? CHOLECYSTECTOMY ??? CYSTOSCOPY 12/03/2020 ??? GASTRIC FUNDOPLICATION 198912/02/2020 - confirmed by pt ??? HERNIA REPAIR ??? HYSTERECTOMY ??? JOINT REPLACEMENT Bilateral with multiple revisions of both knees ??? KNEE SURGERY Bilateral ??? TONSILLECTOMY ??? WRIST SURGERY Right after fracture ALLERGIES: Morphine; Sulfa (sulfonamide antibiotics); Tylenol [acetaminophen]; Aspirin; Injectafer [ferric carboxymaltose]; Lyrica [pregabalin]; and Reglan [metoclopramide hcl] MEDICATIONS: Current Outpatient Medications Medication Sig Dispense Refill ??? albuterol (ACCUNEB) 2.5 mg /3 mL (0.083 %) nebulizer solution USE 1 VIAL VIA NEBULIZER 4 TIMES A DAY NEEDED ??? albuterol 90 mcg/actuation inhaler Inhale 1-2 Puffs as directed every 4 hours as needed for Wheezing. 1 Inhaler 0 ??? albuterol 90 mcg/actuation inhaler Inhale 2 Puffs as directed every 4 hours as needed. ??? furosemide (LASIX) 20 mg tablet Take 1 Tab by mouth daily. 90 Tab 1 ??? [START ON 09/14/2021] HYDROmorphone (DILAUDID) 2 mg tablet Take 1 Tablet by mouth every 12 hours as needed for up to 28 days for Pain. Early fill for travel Daily Max: 4 mg 56 Tablet 0 ??? hydromorphone HCl (DILAUDID ORAL) Take 2 mg by mouth every 12 hours. ??? levothyroxine (SYNTHROID) 25 mcg tablet Take 1 Tab by mouth daily. Unknown dose (Patient takingdifferently: Take 25 mcg by mouth daily before breakfast. ) 90 Tab 3 ??? ondansetron (ZOFRAN) 4 mg tablet Take 1 Tab by mouth 2 times daily as needed for Nausea. 60 Tab3 ??? OXYGEN-AIR DELIVERY SYSTEMS MISC 2 L by misc (non-drug; combo route) route at bedtime. ??? sertraline (ZOLOFT) 50 mg tablet Take 1 Tab by mouth daily. 90 Tab 1 ??? spironolactone (ALDACTONE) 50 mg tablet TAKE 1 TABLET BY MOUTH EVERY DAY 90 Tablet 1 ??? SYMBICORT 160-4.5 mcg/actuation HFA aerosol inhaler inhaler Inhale 2 Puffs as directed daily. 1Inhaler 1 ??? traZODone (DESYREL) 100 mg tablet Take 2 and 1/2 tabs at bedtime. 75 Tablet 2 No current facility-administered medications for this visit. Facility-Administered Medications Ordered in Other Visits Medication Dose Route Frequency Provider Last Rate Last Admin ??? albuterol (ACCUNEB) 2.5 mg /3 mL (0.083 %) nebulizer solution SOCIAL HISTORY: Social Connections: ??? Frequency of Communication with Friends and Family: Not on file ??? Frequency of Social Gatherings with Friends and Family: Not on file ??? Attends Sikhism Services: Not on file ??? Active Member of Clubs or Organizations: Not on file ??? Attends Club or Organization Meetings: Not on file ??? Marital Status: Not on file PHYSICAL EXAMINATION: BP 108/57 Pulse 67 Temp 36.2 ??C (97.1 ??F) (Skin) Resp 17 Ht 163.5 cm (64.37) Wt 98.6 kg (217 lb 4.8 oz) SpO2 97% BMI 36.87 kg/m?? Constitutional: alert and oriented to person, place, and time. Not in acute distress. Well-developed and obese HEENT: Head: Normocephalic and atraumatic. Eyes: Conjunctivae and EOM are intact. Pupils are equal, round, and reactive to light. No scleral icterus. Ears: External ears normal. Mouth/Throat: Oropharynx is clear and moist. No oropharyngeal exudate. Neck: Normal range of motion. Neck supple. No JVD present. No thyromegaly. Pulmonary/Chest: Vesicular breath sounds bilaterally. No respiratory distress. No wheezes, no rhoncae. Breasts: deferred. Cardiovascular: Normal S1, S2. Normal rate, regular rhythm, normal heart sounds. No murmurs. Intactdistal pulses. Abdominal: Flat. Soft. Bowel sounds are normal. No palpable mass or distension. There is no tenderness to palpation. No guarding. Genitourinary: not assessed during the visit. Musculoskeletal: Normal range of motion. No local joint deformity. No edema. No tenderness. Lymphadenopathy: none Neurological: alert and oriented to person, place, and time. CN II-XII are grossly intact. No focalneurologic deficits. Cerebellar function is intact. Skin: Intact, warm and dry. No rash, skin breakdown noted. Psychiatric: Judgment and thought content normal. LABS REVIEWED: Results for TARA BOOTHE ( ) as of 09/09/2021 11:07 Ref. Range 09/08/2021 11:41 WBC Latest Ref Range: 4.00 - 12.40 K/cmm 1.19 (L) RBC Latest Ref Range: 3.86 - 5.04 M/cmm 3.81 (L) Hemoglobin Latest Ref Range: 11.6 - 15.2 gm/dL 10.4 (L) HCT Latest Ref Range: 34.9 - 44.4 % 33.1 (L) MCV Latest Ref Range: 81 - 98 fl 87 MCH Latest Ref Range: 26.7 - 33.3 pg 27.3 MCHC Latest Ref Range: 32.1 - 35.9 gm/dL 31.4 (L) RDW-CV Latest Ref Range: <14.7 % 15.2 (H) RDW-SD Latest Ref Range: <50.4 fl 48.5 PLT Latest Ref Range: 141 - 377 K/cmm 48 (L) MPV Latest Ref Range: 9.5 - 12.7 fl 11.0 Results for TARA BOOTHE ( ) as of 09/09/2021 11:07 Ref. Range 07/30/2021 16:26 Sodium Latest Ref Range: 136 - 145 mmol/L 139 Potassium Latest Ref Range: 3.5 - 5.0 mEq/L 4.0 Chloride Latest Ref Range: 96 - 110 mEq/L 101 CO2 Latest Ref Range: 22 - 32 mEq/L 26 BUN Latest Ref Range: 10 - 26 mg/dL 17 Creatinine Latest Ref Range: 0.52 - 1.04 mg/dL 1.06 (H) Glucose, Screening Latest Ref Range: 70 - 100 mg/dL 131 (H) MAGNESIUM Unknown Rpt Magnesium Latest Ref Range: 1.7 - 2.8 mg/dL 1.9 GFR, Calculated Latest Ref Range: >60 mL/min/1.73m2 57 (L) IMAGING REVIEWED: CT abdomen 04-23-2021: IMPRESSION 1. No abdominal aortic aneurysm or dissection. 2. Cirrhotic configuration of the liver with stigmata of portal hypertension including splenomegalyand chronic nonocclusive portal venous thrombosis. The extent of thrombus has increased in comparison to November 2019. The intrahepatic portal venous branches are patent. 3. Very subtle findings of inflammation on a few images immediately anterior to the head of the pancreas, possibly suggestive of very early pancreatitis or inflammation of the duodenum although thereis no evidence of duodenal bowel wall thickening. 4. Colonic diverticulosis. 5. Prior hysterectomy. ASSESSMENT AND PLAN: 61 y.o. old white female with past medical history mentioned above is back for a follow up of pancytopenia and chronic nonocclusive portal vein thrombosis: Pancytopenia: - Her pancytopenia is likely associated with underlying decompensated liver cirrhosis as well as severe hepatosplenomegaly and hypersplenism. - Patient was formerly evaluated at [facility] with subsequent bone marrow biopsy that showed no evidenceof clonal population or any maturation defects, her BMBX in April 2019 again confirmed the similar findings - labs reviewed and overall stable. - at this time she needs anticoagulation for her splanchnic vein thrombus bue she could not take itdue to thrombocytopenia. Will consider referral to IR for potential splenic embolization. We will continue to follow expectantly, for the future procedures recommend to have perioperative platelet transfusions if necessary to increase her to the safe levels. Poor response to perioperativeTPO mimetics in the past. Chronic non occlusive portal vein thrombosis: -PPX lovenox on hold for falls/intermittent darkening of the stool and thrombocytopenia - pain management per PCP. Monthly labs Plan: Ir referral for splenic embolization Continue to hold lovenox RTC in 3 months, labs, earlier if symptoms arise Starr Paige Hematology and Oncology I spent a total of _30 minutes on the date of this encounter meeting with the patient and reviewing documentation/coordinating care as described in the above note. All their questions were answered to their satisfaction. The patient agreed with the management plan. This is the in person clinic visit with a physical exam. documented in this encounter Plan of Treatment Upcoming Encounters Date Type Department Care Team (Late st Contact Info) Description 01/04/2025 13:00 EST Office Visit [facility] Ophthalmology - [address] [phone] Gagandeep Rome MD [address] [place] [address], [facility] [address] [place] [phone] 02/11/2025 13:30 EDT Telemedicine [facility] Hematology & Oncology - [address] [phone] Dana Padilla MD [address] [place] [address], [facility] [address] [place] [phone] documented as of this encounter Visit Diagnoses Diagnosis Pancytopenia (HCC-CMS)- Primary Other pancytopenia documented in this encounter Care Teams Salesperson Furniture Relationship Specialty Start Date End Date Emigdio Veronica MD [address] [place] [address] PCP - General Internal Medicine - Primary Care 05/22/20 02/21/24 documented as of this encounter
--- OUTSIDE RECORDS SUMMARY | 2024-11-22 17:12 | XMS_ITS | Encounter Summary ---
Author Organization [facility] Address [address] [place] [address] Care Team Providers Care Uncrater Name Role Phone Emigdio Veronica MD Primary Care Provider + Starr Paige MD Unavailable [phone] Dana Padilla MD Unavailable Izabella Snowden [facility] Unavailable None, Provider Primary Care Provider UnavailGabriel Dacosta Primary Care Provider [phone] Mirna Guerrero Primary Care Provider + Reason for Visit * Reason Onset Date Comments Other Medications Refill 07/30/2021 Encounter Details Date Type Department Care Team (Late st Contact Info) Description 07/22/2021 Refill [facility] Adult Primary Care - [place] [address] [place] [address] Emigdio Veronica MD [address] [place] [address] Other; Medications Refill Social History [...] 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 No / Unsure 07/16/2021 13:56 EDT documented as of this encounter Functional Status * Are you deaf or do you have serious difficulty hearing? Answer Date of Assessment Author No 06/29/2021 21:11 EDT Barbara Cross RN * Are you blind or do you have serious difficulty seeing, even when wearing glasses? Answer Date of Assessment Author No 06/29/2021 21:11 Barbara Kim, KENN * Do you have serious difficulty walking or climbing stairs? (5 years old or older) Answer Date of Assessment Author No 06/29/2021 21:11 Barbara Kim RN * Do you have difficulty dressing or bathing? (5 years old or older) Answer Date of Assessment Author No 06/29/2021 21:11 EDT Barbara Cross RN * Because of a physical, mental, or emotional condition, do you have difficulty doing errands alone such as visiting a doctor's office or shopping? (15 years old or older) Answer Date of Assessment Author No 06/29/2021 21:11 EDT Barbara Cross RN documented as of this encounter Mental Status * Because of a physical, mental, or emotional condition, do you have serious difficulty concentrating, remembering, or making decisions? (5 years old or older) Answer Entry Date Author No 06/29/2021 21:11 EDT Barbara Cross RN documented in this encounter Miscellaneous Notes * Telephone Encounter - Katheryn Toscanoa - 07/22/2021 1655 EDT Moey - pt had an appt today, Rx done at the appt - Receipt confirmed by pharmacy (07/22/2021 ??9:23 EDT) documented in this encounter Plan of Treatment Upcoming Encounters Date Type Department Care Team (Late st Contact Info) Description 01/04/2025 13:00 EST Office Visit [facility] Ophthalmology - [address] [phone] Gagandeep Rome MD [address] [place] [address], [facility] [address] [place] [address] 02/11/2025 13:30 EDT Telemedicine [facility] [place] Hematology & Oncology [address] [address] Dana Padilla MD [address] [place] [address], [facility] [address] [place] [address] documented as of this encounter [...] documented as of this encounter Care Teams Uncrater Relationship Specialty Start Date End Date Emigdio Veronica MD [address] [place] [phone] PCP - General Internal Medicine - Primary Care 05/22/20 02/21/24 None, Provider PCP - General 02/24/24 03/18/24 Gabriel Gandara PA PCP - General 03/19/24 09/11/24 Mirna Guerrero PA [address] [place] [address] PCP - General 09/12/24 Starr Paige MD [address] [place] [phone] Hematology 10/08/21 06/09/22 Dana Padilla MD [address] [facility] [place] [address] Hematology 01/13/22 06/09/22 Izabella Snowden, [facility] [address] [facility], [address] [place] [address] Knock Out Hand 02/21/23 05/03/24 documented as of this encounter
--- OUTSIDE RECORDS SUMMARY | 2024-11-22 17:12 | XMS_ITS | Encounter Summary ---
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 42 capsule 07/30/2021 documented in this encounter Progress Notes * Starr Paige MD - 07/30/2021 1414 EDT Amoxicillin documented in this encounter Plan of Treatment Upcoming Encounters Date Type Department Care Team (Late st Contact Info) Description 01/04/2025 13:00 EST Office Visit [facility] Ophthalmology - [address] [phone] Gagandeep Rome MD [address] [place] [address] [address] [place] [phone] 02/11/2025 13:30 EDT Telemedicine [facility] Hematology & Oncology - [address] [phone] Dana Padilla MD [address] [place] [address], [facility] [address] [place] [phone] documented as of this encounter Visit Diagnoses Not on filedocumented in this encounter Care Teams Health Center Associate Relationship Specialty Start Date End Date Emigdio Veronica MD [address] [place] [phone] PCP - General Internal Medicine - Primary Care 05/22/20 02/21/24 documented as of this encounter
--- OUTSIDE RECORDS SUMMARY | 2024-11-22 17:12 | XMS_ITS | Encounter Summary ---
Author Organization [facility] Address [address] [place] [address] Care Team Providers Care Train Clerk Name Role Phone Emigdio Veronica MD Primary Care Provider + Reason for Referral * Radiology Services (Routine/Next Available) - Specialty Report Received Specialty Diagnoses / Procedures Referred By Contac t Referred To Contact Diagnoses Hypersplenism Procedures IR EMBOLIZATION IN VASCULAR EMBOLIZE/OCCLUDE ORGAN TUMOR INFARCT Ant Yoo MD Phone: tel: fax: [facility] Referral ID Status Reason Start Date Expiration Date V isits Requested Visits Authorized [id number] Specialty Report Received 09/16/2021 1 1 Reason for Visit * Reason Comments Advice Only * Consult, Test and Treat (Routine) - Receiving Office to Obtain Authorization Specialty Diagnoses / Procedures Referred By Contac t Referred To Contact Radiology Diagnoses Other pancytopenia (HCC-CMS) Starr Paige MD Phone: tel: fax: Ant Yoo MD Phone: tel: fax: Referral ID Status Reason Start Date Expiration Date Visits Requested Visits Authorized [id number] Receiving Office to Obtain Authorization 1 1 Encounter Details Date Type Department Care Team (Late st Contact Info) Description 09/16/2021 11:30 EDT Office Visit [facility] Interventional Rad Clinic - [address] [id number] Ant Yoo MD [address] [facility] [place], Level [address] [place] [address] Hypersplenism (Primary Dx) Social History Tobacco Use [...] 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 female. Chief Complaint Patient presents with ??? Advice Only Referring rigging slinger: Dr. Paige Type of visit: In person [...] in the progress note. Ant Yoo MD documented in this encounter Plan of Treatment Upcoming Encounters Date Type Department Care Team (Late st Contact Info) Description 01/04/2025 13:00 EST Office Visit [facility] Ophthalmology - [address] [phone] Gagandeep Rome MD [address] [place] [address], [address] [place] [address] 02/11/2025 13:30 EDT Telemedicine [facility] Hematology & Oncology [address] [address] Dana Padilla MD [address] [place] [address], [facility] 2 [place] [address] documented as of this encounter Results * IR EMBOLIZATION (09/28/2021 11:55 EST) Anatomical [...] The needle was exchanged for a 5 Uzbek slender sheath. Anti- spasmodic solution of 2.5 mg of verapamil, 3000 units of heparin, and 200 mcg of nitroglycerin was admixed with blood and administered via the sheath side-port over the course of one minute. A 1.5J Glidewire was preloaded into a catheter and the system was advanced through the descending thoracic aorta to the abdominal aorta. Using a 5 Uzbek Karol catheter, celiac artery was selected (first [...] ultrasound. The needle wasexchanged for a 5 Uzbek slender sheath. Anti-spasmodic solution of 2.5 mg of verapamil, 3000 units of heparin, and 200 mcg of nitroglycerinwas admixed with blood and administered via the sheath side-port over thecourse of one minute. A 1.5J Glidewire was preloaded into a catheter andthe system was advanced through the descending thoracic aorta to theabdominal aorta. 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
--- OUTSIDE RECORDS SUMMARY | 2024-11-22 17:12 | XMS_ITS | Encounter Summary ---
Author Organization 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 Last visit with this provider was end of April. Although I have refilled her prescription I cannot fill another until she returns to clinic for a chronicpain visit. It can be telemedicine, but she should be scheduled ideally before her script expires. * Telephone Encounter - Ebony Toscano - 09/08/2021 1049 EDT Requested Prescriptions Pending Prescriptions Disp Refills ??? HYDROmorphone (DILAUDID) 2 mg tablet 56 Tablet 0 Sig: Take 1 Tablet by mouth every 12 hours as needed for up to 28 days for Pain. Early fill for travel Daily Max: [address] [facility]/pharmacy #[id number] - [place], [place] - [address] [place] [address] Pharmacy? Yes Patient out of medication? No Last Refill Date: 08.17.21 Refills left? (explain exceptions requiring early refill) No Recent Visits Date Type Provider Dept 07/22/21 Office Visit Scottie Campuzano PA-C [place] [facility] 05/14/21 Office Visit Emigdio Veronica MD [place] [facility] 04/29/21 Office Visit Emigdio Veronica MD [place] [facility] 04/16/21 Office Visit Emigdio Veronica MD [place] [facility] 04/10/21 Office Visit Emigdio Veronica MD [place] [facility] 03/06/21 Office Visit Emigdio Veronica MD [place] [facility] 01/27/21 Office Visit Dom Mackay MD [place] [facility] 11/20/20 Office Visit Emigdio Veronica MD [place] [facility] 10/15/20 Office Visit Emigdio Veronica MD [place] [facility] 10/10/20 Office Visit Scottie Campuzano PA-C [place] [facility] Showing recent visits within past 540 days with a meds authorizing provider and meeting all other requirements Future Appointments Date Type Provider Dept 09/18/21 Appointment Scottie Campuzano PA-C [place] [facility] Showing future appointments within next 150 days with a meds authorizing provider and meeting all other requirements Future appointment: Scheduled Today Ebony Toscano 09/08/2021 10:49 documented in this encounter Plan of Treatment Upcoming Encounters Date Type Department Care Team (Late st Contact Info) Description 01/04/2025 13:00 EST Office Visit [facility] Ophthalmology - [address] [phone] Gagandeep Rome MD [address] [place] [address], [facility] 5 [place] [phone] 02/11/2025 13:30 EDT Telemedicine [facility] Hematology & Oncology [address] [phone] Dana Padilla MD [address] [place] [address], [facility] 2 [place] [address] documented as of this encounter Visit Diagnoses Not on filedocumented in this encounter Discontinued Medications Medication Sig Discontinue Reason Start Date End Da te HYDROmorphone (DILAUDID) 2 mg tablet Take 1 Tablet by mouth every 12 hours as needed for up to 28 days for Pain. Early fill for travel Daily Max: 4 mg Reorder 08/17/2021 09/08/2021 documented as of this encounter Additional Health Concerns Infection Onset Date Last Indicated Resolved Time R/O COVID-19 10/08/2021 10/08/2021 10/08/2021 18:1 8 EST R/O COVID-19 12/14/2021 12/14/2021 12/19/2021 22:1 5 EST documented as of this encounter Care Teams Dredge Pumper Relationship Specialty Start Date End Date Emigdio Veronica MD [address] [place] [address] PCP - General Internal Medicine - Primary Care 05/22/20 02/21/24 Starr Paige MD [address] [place] [phone] Hematology 10/08/21 06/09/22 documented as of this encounter
--- OUTSIDE RECORDS SUMMARY | 2024-11-22 17:12 | XMS_ITS | Encounter Summary ---
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 * Telephone Encounter - Jes Mayorga RN - 07/30/2021 1153 EDT Fever is on and off, temp of 100. To 100.2 Patient having dry heaves. Patient is eating soups and lately not able to keep soup down. Patient is trying shake to drink. Not able to eat any solid foods because of tooth. Slept 15 hours. Yesterday. Encouraged patient to contact hematology oncology office regarding lab work and symptoms. If unable to keep fluids down, patient to be seen urgently in the ER for Fluids and Evaluation. * Telephone Encounter - Noemi Hall - 07/30/2021 1133 EDT patient called back and asked to get a call back today regardless of whether or not we can get her an appointment * Telephone Encounter - Ebony Toscano - 07/30/2021 0908 EDT Pt called this AM, she does have transportation for today if we get any openings. * Telephone Encounter - Jes Mayorga RN - 07/29/2021 1253 EDT Patient aware of DR Doty recommendations. Patient will stop antibiotic. Temp is 100.4. So drained right now. No black or tarry stools. No black or tarry stools. Some bloating. Continues to have some issues with fluid retention. Patient will continue to monitor symptoms. For worsening symptoms of fever, shaking chills. Patientwill be seen urgently in ER . The patient indicates understanding of these issues and agrees with the plan. * Telephone Encounter - Emigdio Veronica MD - 07/29/2021 1123 EDT Reviewed labs. Her WBC has dropped this low with acute stressors before and do not believe any intervention is warranted for her leukopenia at this time. Agree with stopping the antibiotic if it is causing diarrhea. The antibiotic was never going to be effective at treating her dental infection, at best it can only suppress bacteria that might try to spread from that abscess, but this is not a guarantee. The definite treatment is dental intervention. Until her diarrhea resolves I would not start another antibiotic instead I would continue to treat her discomfort conservatively (ice, heat) and avoid manipulating the infected tooth in question. Shecan continue her currently prescribed dilaudid of course. As for the ride situation this may need social work involvement if she is unable to secure a ride with family or friends. * Telephone Encounter - Jes Myaorga RN - 07/29/2021 0900 EDT Patient has appointment for 08-06-21 at the [facility] Dentist. Patient had lab work done yesterday. Still having the diarrhea. Yesterday had diarrhea 3 times some of times didn't have much diarrhea. Not eating anything solid for two weeks. All patient wants to do is sleep. Did have shaking chills during the night. Drank a cup of hot tea but that upset her stomach. Patient [facility]. Patient is taking dilaudid. Cant take anything with tylenol or ibuprofen. Patient not concerned about pain medication. Patient is more concerned about the infection. Patient will stop antibiotic. Tried to schedule follow up visit this week. Patient does not have rides for available appointment times. See lab results. Next Steps ? * Telephone Encounter - Scottie Campuzano PA-C - 07/28/2021 1759 EDT 1. Because of diarrhea, she needs to stop the antibiotic--- if still taking it. 2 What is the name of the dental office she has been calling--- so we can call on her behalf. 3 If diarrhea persists, will need Office visit for eval, r/o C diff, etc. [address] Veronica reviewed the situation last week, and he is not comfortable ordering more pain medication for this dental problem. (see note from last week's phone encounter if necessary for details of that call). Scottie Rosas CC: Dr Veronica as FYI * Telephone Encounter - Jes Mayorga RN - 07/28/2021 1427 EDT Patient has called dental office several times. Not able to get a return calll from dental office. Taking antibiotics. Not able to eat. Using liquid diet. Aches all over head fees hot. Maybe low grade temp at inght. Having diarrhea 3-4 times a day. patient Was told that if no improvement there would be concern for blood infection. patient feelsDrained out , not sleeping because of the pain. The one tooth is wiggling back and forth. Not sure what is keeping tooth in place. Also worried if tooth falls out would bleed. Recommendations. Next step? * Telephone Encounter - Ebony Toscano - 07/28/2021 1421 EDT Reason for Call: Dental Pain and Dental Problem Summary/Symptoms: Pt saw Scottie on 07.22.21 for dental pain. Pt says she has been taking the ABX that he Rx'd her, says it did not help, says she thinks her infection is worse. She says she is nauseous, not feeling well at all. Has not eaten anything in two weeks. Broke a tooth eating egg salad. Onset and Duration: saw Scottie on 07.22.21 Does the patient have a computer, laptop or smart phone with high speed & video capability? If so, would they be interested in doing a video visit via Zoom? Appointment Offered? No - Call transferred to triage. Ebony Toscano 07/28/2021 14:22 documented in this encounter Plan of Treatment Upcoming Encounters Date Type Department Care Team (Late st Contact Info) Description 01/04/2025 13:00 EST Office Visit [facility] Ophthalmology - [address] [phone] Gagandeep Rome MD [address] [place] [address] [address] [place] [phone] 02/11/2025 13:30 EDT Telemedicine [facility] Hematology & Oncology - [address] [phone] Dana Padilla MD [address] [place] [address], [facility] 2 [place] [phone] documented as of this encounter Visit Diagnoses Not on filedocumented in this encounter Care Teams Drupal Programmer Relationship Specialty Start Date End Date Emigdio Veronica MD [address] [place] [phone] PCP - General Internal Medicine - Primary Care 05/22/20 02/21/24 documented as of this encounter
--- OUTSIDE RECORDS SUMMARY | 2024-11-22 17:12 | XMS_ITS | Encounter Summary ---
Author Organization [facility] Address [address] [place] [address] Care Team Providers Care Tube Making Machine Operator Name Role Phone Emigdio Veronica MD Primary Care Provider + Encounter Details Date Type Department Care Team (Late st Contact Info) Description 07/17/2021 Community Health Team [facility] [address] [facility], [address] [place] [address] Lucille Carcamo [address] [facility] [address] [place] [address] Social History Tobacco Use Types Packs/Day Years [...] 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 Glenys PHIPPS. TOPIC OF CONVERSATION: Engaged patient in conversation related to positive behavior change, self- management, goal setting and action planning using motivational interviewing and active listening. Phone call with Tara who is not feeling well today. Was in the ED yesterday. Requested this SW call her next week instead for this referral. .. Adult Primary Care [address], [address], [place] Total Time: 5 min phone Referral: Pending Follow up: CHT TRIAL MANAGER Status: Active documented in this encounter Plan of Treatment Upcoming Encounters Date Type Department Care Team (Late st Contact Info) Description 01/04/2025 13:00 EST Office Visit [facility] Ophthalmology - [address] [phone] Gagandeep Rome MD [address] [place] [address], [facility] 5 [place] [address] 02/11/2025 13:30 EDT Telemedicine [facility] Hematology & Oncology - [address] [phone] Dana Padilla MD [address] [place] [address], [address] [place] [address] documented as of this encounter Visit Diagnoses Not on filedocumented in this encounter Care Teams Tube Making Machine Operator Relationship Specialty Start Date End Date Emigdio Veronica MD [address] [place] [address] PCP - General Internal Medicine - Primary Care 05/22/20 02/21/24 documented as of this encounter
--- OUTSIDE RECORDS SUMMARY | 2024-11-22 17:12 | XMS_ITS | Encounter Summary ---
Author Organization [facility] Address [address] [place] [address] Care Team Providers Care Communications Supervisor Name Role Phone Emigdio Veronica MD Primary Care Provider + Reason for Visit * Reason Comments Back Pain lower back, radiatin g into Left hip and leg Edema Continued fluid buil dup in adbomen and legs Medications Refill Lasix needed due to spill. 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 file Not on file Not o n file documented as of this encounter Last Filed Vital Signs Vital Sign Reading Time Taken Comments Blood Pressure 113/58 09/18/2021 0855 EDT Pulse 74 09/18/2021 0855 EDT Temperature 36.4 ??C (97.5 ??F) 09/18/2021 0855 EDT Respiratory Rate 16 09/18/2021 0855 EDT Oxygen Saturation - - Inhaled Oxygen Concentration - - Weight 97.1 kg (214 lb) 09/18/2021 0855 EDT Height - - Body Mass Index 36.31 09/09/2021 1029 EDT documented in this encounter [...] Barbara Kim RN documented in this encounter Ordered Prescriptions Prescription Sig Dispense Quantity Refills Last Filled Start Date End Date mupirocin (BACTROBAN) 2 % ointment Apply 3 times a day for 1 week for painful sore on lower right leg. 30 g 09/18/2021 2 furosemide (LASIX) 20 mg tablet Take 1 Tablet by mouth daily. 90 Tablet 1 09/18/2021 1 documented in this encounter Progress Notes * Scottie Campuzano PA-C - 09/18/2021 0845 EDT Subjective: Patient ID: Tara Yun is an 61 y.o. female. Chief Complaint Patient presents with ??? Back Pain lower back, radiating into Left hip and leg ??? Edema Continued fluid buildup in adbomen and legs ??? Medications Refill Lasix needed due to spill. HPI Legs more swollen Low back pains--worse. Sore area right lower calf. Quite worried about surgical procedure on spleen. Patient Active Problem List Diagnosis ??? Pancytopenia (HCC) ??? Mild persistent asthma without complication ??? Drug-seeking behavior ??? Hypersplenism syndrome ??? Splenic vein thrombosis ??? Hematuria, gross ??? Chronic pain syndrome ??? Cirrhosis of liver (HCC-CMS) (HCC) ??? Obesity, Class II, BMI 35-39.9 ??? Hypothyroidism ??? Abdominal wall hernia ??? Allergic rhinitis ??? Partial small bowel obstruction (HCC-CMS) ([facility]) ??? HUEY (obstructive sleep apnea) ??? Dyspnea ??? Nephrolithiasis ??? Left ureteral stone ??? COPD (chronic obstructive pulmonary disease) (HCC-CMS) ([facility]) ??? Portal vein thrombosis ??? Frequent falls ??? Fluid overload ??? Moderate protein-calorie malnutrition (HCC-CMS) ([facility]) Outpatient Medications Marked as Taking for the 09/18/21 encounter (Office Visit) with Scottie Campuzano PA-C Medication Sig Dispense Refill ??? albuterol (ACCUNEB) 2.5 mg /3 mL (0.083 %) nebulizer solution USE 1 VIAL VIA NEBULIZER 4 TIMES A DAY NEEDED ??? albuterol 90 mcg/actuation inhaler Inhale 1-2 Puffs as directed every 4 hours as needed for Wheezing. 1 Inhaler 0 ??? [DISCONTINUED] furosemide (LASIX) 20 mg tablet Take 1 Tablet by mouth daily. 90 Tablet 1 ??? [DISCONTINUED] furosemide (LASIX) 20 mg tablet Take 1 Tab by mouth daily. 90 Tab 1 ??? HYDROmorphone (DILAUDID) 2 mg tablet Take 1 Tablet by mouth every 12 hours as needed for up to 28 days for Pain. Early fill for travel Daily Max: 4 mg 56 Tablet 0 ??? [DISCONTINUED] hydromorphone HCl (DILAUDID ORAL) Take 2 mg [...] 1/2 tabs at bedtime. 75 Tablet 2 ROS - See HPI Objective: BP 113/58 Pulse 74 Temp 36.4 ??C (97.5 ??F) (Tympanic) Resp 16 Wt 97.1 kg (214 lb) BMI 36.31 kg/m?? Physical Exam Physical Exam Vitals and nursing note reviewed. Constitutional: General: not in acute distress. Comfortable. Alert. Appearance: well-developed and well-nourished. Eyes: Extraocular Movements: EOM normal. Conjunctiva/sclera: Conjunctivae normal. Legs Moderate edema, with one small superficial 1cm scratch of right lower leg, no deep infection,but impetigenous changes. Neurological: Mental Status: Alert and oriented to person, place, and time. Speech pattern normal. Recent and remote memory grossly intact throughout conversation. Psychiatric: Mood and Affect: Mood and affect normal. Assessment / Plan: Pt concerned about risks of splenic procedure. I advised her to contact Dr. Yoo's office to askabout the risk. Recheck here in 4 weeks. Try increase furosemide. Mupirocin for impetigo right leg. Tara was seen today for back pain, edema and medications refill. Diagnoses and all orders for this visit: Bilateral leg edema - COMPREHENSIVE METABOLIC PANEL (CMP); Future Impetigo any site Leukopenia, unspecified type Hypersplenism syndrome Other orders - Discontinue: furosemide (LASIX) 20 mg tablet; Take 1 Tablet by mouth daily. - mupirocin (BACTROBAN) 2 % ointment; Apply 3 times a day for 1 week for painful sore on lower right leg. Med Orders Placed This Visit and Additions to the Medication List Medications ??? DISCONTD: furosemide (LASIX) 20 mg tablet Sig: Take 1 Tablet by mouth daily. Dispense: 90 Tablet Refill: 1 ??? mupirocin (BACTROBAN) 2 % ointment Sig: Apply 3 times a day for 1 week for painful sore on lower right leg. Dispense: 30 g Refill: 0 Orders Placed This Encounter Procedures ??? Comprehensive Metabolic Panel (CMP) Standing Status: Future Standing Expiration Date: 09/18/2022 Scheduling Instructions: Blood Test and Fasting How [...] NOT fasting? Answer: Yes Order Specific Question: Release to Patient (Note: Choosing Manual Release will only block results from tests performed at [facility] and does not apply for Miscellaneous Test Order) Answer: Immediate Scottie Campuzano PA-C Next appt at [place] Office: 09/18/2021 09/20/2021 14:16 documented in this encounter Plan of Treatment Upcoming Encounters Date Type Department Care Team (Late st Contact Info) Description 01/04/2025 13:00 EST Office Visit [facility] Ophthalmology - [address] [phone] Gagandeep Rome MD [address] [place] [address], [facility] [address] [place] [phone] 02/11/2025 13:30 EDT Telemedicine [facility] Hematology & Oncology [address] [address] Dana Padilla MD [address] [place] [address], [address] [place] [phone] documented as of this encounter Results * (ABNORMAL) COMPREHENSIVE METABOLIC PANEL (CMP) (09/21/2021 11:04 EDT) Sodium 140 136 - 145 mmol/L 09/21/2021 12:08 [facility] Potassium 4.5 3.5 - 5.0 mEq/L 09/21/2021 12:08 [facility] Chloride 99 96 - 110 mEq/L 09/21/2021 12:08 [facility] CO2 Total 29 22 - 32 mEq/L 09/21/2021 12:08 [facility] Glucose 88 70 - 100 mg/dL 09/21/2021 12:08 [facility] BUN 20 10 - 26 mg/dL 09/21/2021 12:08 [facility] Creatinine 1.17(H) 0.52 - 1.04 mg/dL 09/21/2021 12:08 [facility] eGFR 50(L) >60 mL/min/1.7 3m2 09/21/2021 12:08 [facility] Comment:eGFR calculated lobito coppola CKD-EPI equation for non- Americans. Multiply eGFR by 1.16 for patients. Total Protein 7.2 6.3 - 8.2 g/dL 09/21/2021 12:08 [facility] Albumin 4.2 3.4 - 4.9 g/dL 09/21/2021 12:08 [facility] Alkaline Phosphatase 120 38 - 126 U/L 09/21/2021 12:08 [facility] AST 26 15 - 46 U/L 09/21/2021 12:08 [facility] ALT 15 <35 U/L 09/21/2021 12:08 [facility] Bilirubin, Total 0.6 <1.4 mg/dL 09/21/20 12:08 [facility] Calcium 9.2 8.5 - 10.5 mg/dL 09/21/2021 12:08 [facility] Albumin/Globulin Ratio 1.4 1.0 - 2.5 09/21/2021 12:08 [facility] Anion Gap 12 8 - 16 09/21/2021 12:08 EDT [facility] Blood VENOUS BLOOD / Unknown Venipuncture / Unknown 09/21/2021 11:04 EDT 09/21/2021 11:27 EDT Scottie Campuzano PA-C CHEMISTRY & B LOOD GAS ORDERABLES Final Result [facility] [address] [place] [address] documented in this encounter Visit Diagnoses Diagnosis Bilateral leg edema- Primary Edema Impetigo any site Impetigo Leukopenia, unspecified type Hypersplenism syndrome Hypersplenism documented in this encounter Discontinued Medications Medication Sig Discontinue Reason Start Date End Da te albuterol 90 mcg/actuation inhaler Inhale 2 Puffs as directed every 4 hours as needed. Duplicate order 09/18/2021 furosemide (LASIX) 20 mg tablet Take 1 Tab by mouth daily. Reorder 04/10/2021 09/18/2021 hydromorphone HCl (DILAUDID ORAL) Take 2 mg by mouth every 12 hours. Duplicate order 09/18/2021 documented as of this encounter Care Teams Communications Supervisor Relationship Specialty Start Date End Date Emigdio Veronica MD [address] [place] [phone] PCP - General Internal Medicine - Primary Care 05/22/20 02/21/24 documented as of this encounter
--- OUTSIDE RECORDS SUMMARY | 2024-11-22 17:12 | XMS_ITS | Encounter Summary ---
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 spironolactone (ALDACTONE) 50 mg tablet [Pharmacy Med Name: SPIRONOLACTONE 50 MG TABLET] 30 Tablet 0 Sig: TAKE 1 TABLET BY MOUTH EVERY DAY [facility]/pharmacy #[id number] - [address] Confirmed Pharmacy? Yes Patient out of medication? Yes: Needs Refill Now Last Refill Date: 07/28/2021 Refills left? (explain exceptions requiring early refill) No Recent Visits Date Type Provider Dept 07/22/21 Office Visit Scottie Campuzano PA-C [place] [facility] 05/14/21 Office Visit Emigdio Veronica MD [place] [facility] 04/29/21 Office Visit Emigdio Veronica MD [place] [facility] 04/16/21 Office Visit Emigdio Veronica MD [place] [facility] 04/10/21 Office Visit Emigdio Veronica MD [place] [facility] 03/06/21 Office Visit Emigdio Veronica MD [place] [facility] 01/27/21 Office Visit Dom Mackay MD [place] [facility] 11/20/20 Office Visit Emigdio Veronica MD [place] [facility] 10/15/20 Office Visit Emigdio Veronica MD [place] [facility] 10/10/20 Office Visit Scottie Campuzano PA-C [place] [facility] Showing recent visits within past 540 days with a meds authorizing provider and meeting all other requirements Future Appointments Date Type Provider Dept 08/27/21 Appointment Dana Ramires NP [place] Showing future appointments within next 150 days with a meds authorizing provider and meeting all other requirements Future appointment: Already Scheduled Xuan Jimenez 08/18/2021 12:26 documented in this encounter Plan of Treatment Upcoming Encounters Date Type Department Care Team (Late st Contact Info) Description 01/04/2025 13:00 EST Office Visit [facility] Ophthalmology - [address] [phone] Gagandeep Rome MD [address] [place] [address] [address] [place] [phone] 02/11/2025 13:30 EDT Telemedicine [facility] Hematology & Oncology - [address] [phone] Dana Padilla MD [address] [place] [address] [address] [place] [phone] documented as of this encounter Visit Diagnoses Not on filedocumented in this encounter Discontinued Medications Medication Sig Discontinue Reason Start Date End Da te spironolactone (ALDACTONE) 50 mg tablet TAKE 1 TABLET BY MOUTH EVERY DAY 07/28/2021 08/19/2021 documented as of this encounter Care Teams Chief Cruiser Relationship Specialty Start Date End Date Emigdio Veronica MD [address] [place] [phone] PCP - General Internal Medicine - Primary Care 05/22/20 02/21/24 documented as of this encounter
--- OUTSIDE RECORDS SUMMARY | 2024-11-22 17:12 | XMS_ITS | Encounter Summary ---
Author Organization [facility] Address [address] [place] [address] Care Team Providers Care Survey Technician Name Role Phone Emigdio Veronica MD Primary Care Provider + Reason for Visit * Reason Comments Loss of Consciousness Pt was on her way to the ED for evaluation of 2 weeks of N/V. Known blood clot in her chest/abd? Unwitnessed LOC, fall from standing. Unknown whether or not she hit her head. Arrives to the ED with Rapid Response RN. 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 No / Unsure 07/30/2021 16:18 EDT documented as of this encounter Last Filed Vital Signs Vital Sign Reading Time Taken Comments Blood Pressure 109/59 07/30/2021 1800 EDT Pulse 88 07/30/2021 1616 EDT Temperature 36.9 ??C (98.4 ??F) 07/30/2021 1616 EDT Respiratory Rate 14 07/30/2021 1800 EDT Oxygen Saturation 98% 07/30/2021 1800 EDT Inhaled Oxygen Concentration - - Weight 86.2 kg (190 lb) 07/30/2021 1616 EDT Height 162.6 cm (5' 4) 07/30/2021 1616 EDT Body Mass Index 32.61 07/30/2021 1616 EDT documented in this encounter Functional Status [...] Barbara Kim RN documented in this encounter Discharge Instructions * Attachments The following attachments cannot be sent through Care Everywhere. * Tooth: Abscessed (Bolivian) * Fainting (Bolivian) documented in this encounter Medications at Time of Discharge OXYGEN-AIR DELIVERY SYSTEMS MISCIndications: 2 L @ night via nC 2 L by misc (non-drug; combo route) route at bedtime. albuterol (ACCUNEB) 2.5 mg /3 mL (0.083 %) nebulizer solution USE 1 VIAL VIA NEBULIZER 4 TIMES A DAY NEEDED 05/07/2020 1 albuterol 90 mcg/actuation inhaler Inhale 1-2 Puffs as directed every 4 hours as needed for Wheezing. 1 Inhaler 04/13/2021 3 albuterol 90 mcg/actuation inhaler Inhale 2 Puffs as directed every 4 hours as needed. 1 amoxicillin (AMOXIL) 500 mg capsule Take 1 capsule by mouth every 8 hours for 14 days. 42 capsule 07/30/2021 1 furosemide (LASIX) 20 mg tablet Take 1 Tab by mouth daily. 90 Tab 1 04/10/2021 1 HYDROmorphone (DILAUDID) 2 mg tablet Take 1 Tablet by mouth every 12 hours as needed for up to 28 days for Pain. Early fill for travel Daily Max: 4 mg 56 Tablet 07/20/2021 1 hydromorphone HCl (DILAUDID ORAL) Take 2 mg by mouth every 12 hours. 1 levothyroxine (SYNTHROID) 25 mcg tablet Take 1 Tab by mouth daily. Unknown dose 90 Tab 3 11/03/2020 1 ondansetron (ZOFRAN) 4 mg tablet Take 1 Tab by mouth 2 times daily as needed for Nausea. 60 Tab 3 03/30/2021 1 penicillin v potassium (VEETID) 500 mg tablet Take 1 Tablet by mouth 2 times daily for 10 days. 20 Tablet 07/22/2021 1 sertraline (ZOLOFT) 50 mg tablet Take 1 Tab by mouth daily. 90 Tab 1 04/10/2021 1 spironolactone (ALDACTONE) 50 mg tablet TAKE 1 TABLET BY MOUTH EVERY DAY 30 Tablet 07/28/2021 1 SYMBICORT 160-4.5 mcg/actuation HFA aerosol inhaler inhalerIndicatio ns:COPD with asthma ([facility]) Inhale 2 Puffs as directed daily. 1 Inhaler 1 07/08/2021 1 traZODone (DESYREL) 100 mg tablet Take 2 and 1/2 tabs at bedtime. 75 Tablet 2 07/22/2021 1 documented as of this encounter Discharge Disposition Disposition Code Departure Means Destination Home or Self Retirement documented in this encounter ED Notes * Jacy Leos RN - 07/30/2021 1913 EDT Pt stable and ready for discharge. Ambulatory off unit with steady gait. * Jacy Leos RN - 07/30/2021 1836 EDT PO challenge prior to PO meds. Eating jello and ice chips. * Jacy Leos RN - 07/30/2021 1823 EDT Pt states the Dilaudid took the edge off her pain, still reports nausea. Playing on cell phone. * J Luis Gregory MD - 07/30/2021 1741 EDT DOS: 07/30/2021 Chief Complaint Patient presents with ??? Loss of Consciousness Pt was on her way to the ED for evaluation of 2 weeks of N/V. Known blood clot in her chest/abd? Unwitnessed LOC, fall from standing. Unknown whether or not she hit her head. Arrives to the ED with Rapid Response RN. HPI The patient is a 61 y.o. female who presents today with syncope or near syncope. 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 She has had significant dental pain and nausea with a few episodes of nonbloody nonbilious emesis that have caused decreased oral intake of both solids and liquids. She feels that she has been getting dehydrated. She spoke with hematology on the phone for a follow-up appointment regarding thisand they recommended evaluation in the emergency department on her way she said she felt lightheaded in the mora she was able to make it to a bench and is unsure if she had a loss of consciousness ornot. She did not fall to the floor and did not hit her head. She was previously anticoagulated for splenic vein thrombosis but is not currently anticoagulated. She mainly complains of dental pain andinability to take her home medications including her home Dilaudid. On arrival she is stable well-appearing and in no acute distress. Review of Systems Review of Systems Constitutional: Positive for appetite change. Negative for chills and fever. HENT: Positive for dental problem. Negative for rhinorrhea, sneezing and sore throat. Respiratory: Negative for cough, choking and shortness of breath. Cardiovascular: Negative for chest pain. Gastrointestinal: Positive for abdominal pain, nausea and vomiting. Genitourinary: Negative for flank pain. Musculoskeletal: Negative for back pain. Skin: Negative for wound. Neurological: Negative for speech difficulty and headaches. Psychiatric/Behavioral: Negative for behavioral problems and hallucinations. All other systems reviewed and are negative. The patient's past medical, family and social history was reviewed and updated as needed. Allergies Allergen Reactions ??? Metoclopramide Nausea Only, [...] ??? Prochlorperazine ??? Reglan [Metoclopramide Hcl] Rash Vital Signs Vitals Reassessment?: Yes Temp: 36.9 ??C (98.4 ??F) Temp src: Oral Pulse: 88 Cardiac Rhythm: Normal sinus rhythm Resp: 12 SpO2: 100 % BP: 112/56 BP MAP: 64 mm Hg BP Device: BP Machine BP Patient Position: Supine BP Cuff Location: Right arm O2 Device: None (Room air) Physical Exam Vitals and nursing note reviewed. Constitutional: General: She is not in acute distress. Appearance: She is well-developed. HENT: Head: Normocephalic and atraumatic. Eyes: General: No scleral icterus. Neck: Trachea: No tracheal deviation. Cardiovascular: Rate and Rhythm: Normal rate and regular rhythm. Heart sounds: Normal heart sounds. Pulmonary: Effort: Pulmonary effort is normal. No respiratory distress. Breath sounds: No wheezing or rales. Abdominal: Palpations: Abdomen is soft. Tenderness: There is no abdominal tenderness. There is no guarding or rebound. Comments: Obese abdomen soft mildly tender to palpation diffusely no rebound or guarding. Musculoskeletal: General: No deformity. Cervical back: Normal range of motion. Skin: Findings: No rash. Neurological: Mental Status: She is alert and oriented to person, place, and time. Psychiatric: Behavior: Behavior normal. Thought Content: Thought content normal. RESULTS EKG orders: EKG 12-LEAD ECG Reviewed: Findings include: Sinus rhythm 80 bpm normal axis normal intervals no ST or T wave abnormalities the study has been independently viewed by me. The study has been interpreted independently and contemporaneously by me. The EKG appears to be a good tracing. Attending building manager not immediately available for acute interpretation. Radiology orders: None Procedures ED COURSE A medical screening exam was performed. Patient presented for evaluation of dental pain nausea vomiting and a near syncopal event. All of the patient's symptoms seem to be related to her dental infection and her lack of adherence to penicillin which was scribed to her due to GI intolerance. She was transition to amoxicillin today which she tolerates well. She is likely dehydrated causing her near syncope she was rehydrated here with normal saline and felt much improved. She was given her home Dilaudid which improved her pain and IV antiemetics with no emesis here and was able to tolerate oral intake. Labs were also reassuring with no evidence of an MUSA she had normal electrolytes she has a chronically depressed white blood cell count consistent with her leukemia that appears stable. She has not been febrile here and has normal vitals. As for her syncope she had a normal EKG with no evidence of ischemia dysrhythmia WPW or longQT. Her near syncope seems to be related to dehydration. She does have close follow-up with her primary care provider and she was discharged home in fair condition to follow-up with primary care provi og as needed continue amoxicillin she does have dental follow-up in 1 week. Return precautions were given which she understood Final diagnoses: None DISPOSITION: No disposition on file The patient's pain was managed to an adequate level weighing risk vs. benefit of further medications. Upon departure from the Emergency Department, the patient's pain was 2 on a zero to ten scale. Any further pain treatment will be at the discretion of the provider following up with the patient based on their clinical assessment. Condition at departure from the Emergency Department: Improved PCP: Emigdio Veronica [facility] 07/30/2021 17:41 No flowsheet data found. * Jacy Leos RN - 07/30/2021 1624 EDT 61 yo female presents today for evaluation of multiple complaints. Rapid Response was called for ptbecause she had an unwitnessed suspected syncopal episode from either standing or sitting on a bench. Pt cannot recall incident completely. Arrives in c-collar and on a backboard. Pt has a known blood clot in her chest, was recently taken off of blood thinners because my blood counts were so low, my platelets were in the 40s. Pt complains of 9/10 pain where her clot is. Unsure of whether or notshe hit her head when she fell prior to arrival. No obvious signs of injury. No edema in LEs. Pt states she has been vomiting for 2 weeks straight, unable to take any of her meds including diuretics for 2 weeks. Pupils are equal and reactive bilaterally. Denies headache and dizziness at this time. A&Ox4. Skin PWD. Resp even and unlabored. VSS, NSR on the monitor. * Jacy Leos RN - 07/30/2021 1619 EDT Pt placed on continuous cardiac/O2 monitoring, BP checks q15min. Arrives in c- collar due to unwitnessed syncopal episode. documented in this encounter Plan of Treatment Upcoming Encounters Date Type Department Care Team (Late st Contact Info) Description 01/04/2025 13:00 EST Office Visit [facility] Ophthalmology - [facility] [address], [place] [id number] Gagandeep Rome MD [address] [facility], [address] [place] [phone] 02/11/2025 13:30 EDT Telemedicine [facility] Hematology & Oncology - [facility] [address], [place] [phone] Dana Padilla MD [address] [facility], [address] [place] [phone] documented as of this encounter Procedures Procedure Name Priority Date/Time Associated Diagnosis Comments ECG REPORT - SCANNED 08/14/2021 15:22 EDT HOLD SST Routine 07/30/2021 16:26 EDT SCREENING GLUCOSE STAT Add-on 07/30/2021 16: 26 EDT BUN STAT Add-on 07/30/2021 16:26 EDT MAGNESIUM STAT Add-on 07/30/2021 16:26 EDT CREATININE STAT Add-on 07/30/2021 16:26 EDT ELECTROLYTES STAT Add-on 07/30/2021 16:26 EDT DIFFERENTIAL, AUTOMATED MANUAL Today 07/30/2021 16:22 EDT HOLD LAVENDER TOP Routine 07/30/2021 16: 22 EDT HOLD GREEN TOP Routine 07/30/2021 16:22 EDT HOLD BLUE TOP Routine 07/30/2021 16:22 EDT EXTRA BLOOD DRAW (RAINBOW) Routine 07/30/2021 16:22 EDT TROPONIN I STAT Add-on 07/30/2021 16:22 EDT COMPLETE BLOOD COUNT AND DIFFERENTIAL STAT Add-on 07/30/2021 16:22 EDT EKG 12-LEAD STAT 07/30/2021 16:15 EDT documented in this encounter Results * ECG REPORT - SCANNED (08/14/2021 15:22 EDT) 08/14/2021 15:2 2 EDT us Scan 2 Environmental Adviser PROCEDURE/MINOR SURGICAL OR DERABLES Final Result * HOLD SST (07/30/2021 16:26 EDT) Hold Hold 07/30/2021 17:30 EDT [facility] Blood VENOUS BLOOD / Unknown 07/30/2021 16:26 EDT 07/30/2021 16:26 EDT us Sal Hubbard MD LAB INFO SERVICE AND SUPPORT & PHONE RESULT Final Result [facility] [address] [place] [address] * (ABNORMAL) SCREENING GLUCOSE (07/30/2021 16:26 EDT) Glucose, Screening 131(H) 70 - 100 mg/dL 07/30/2021 17:04 EDT [facility] Blood VENOUS BLOOD / Unknown 07/30/2021 16:26 EDT 07/30/2021 16:26 EDT us J Luis Gregory MD [facility] CHEMISTRY & BLOOD GAS ORD ERABLES Final Result [facility] [address] [place] [address] * MAGNESIUM (07/30/2021 16:26 EDT) Magnesium 1.9 1.7 - 2.8 mg/dL 07/30/2021 17:04 EDT [facility] Blood VENOUS BLOOD / Unknown 07/30/2021 16:26 EDT 07/30/2021 16:26 EDT us J Luis Gregory MD [facility] CHEMISTRY & BLOOD GAS ORD ERABLES Final Result Performing Organization Address [facility] Co de Phone Number [facility] [address] [place] [address] * ELECTROLYTES (07/30/2021 16:26 EDT) Sodium 139 136 - 145 mmol/L 07/30/2021 17:04 EDT [facility] Potassium 4.0 3.5 - 5.0 mEq/L 07/30/2021 17:04 EDT [facility] Chloride 101 96 - 110 mEq/L 07/30/2021 17:04 EDT [facility] CO2 Total 26 22 - 32 mEq/L 07/30/2021 17:04 EDT [facility] Blood VENOUS BLOOD / Unknown 07/30/2021 16:26 EDT 07/30/2021 16:26 EDT us J Luis Gregory MD MS CHEMISTRY & BLOOD GAS ORD ERABLES Final Result Performing Organization Address [facility] de Phone Number [facility] [address] [place] [address] * (ABNORMAL) CREATININE (07/30/2021 16:26 EDT) Creatinine 1.06(H) 0.52 - 1.04 mg/dL 07/30/2021 17:04 EDT [facility] eGFR 57(L) >60 mL/min/1.7 3m2 07/30/2021 17:04 EDT [facility] Comment:eGFR calculated lobito coppola CKD-EPI equation for non- Americans. Multiply eGFR by 1.16 for patients. Blood VENOUS BLOOD / Unknown 07/30/2021 16:26 EDT 07/30/2021 16:26 EDT us J Luis Gregory MD [facility] CHEMISTRY & BLOOD GAS ORD ERABLES Final Result Performing Organization Address City/[facility]/ZIP Co de Phone Number [facility] [address] [place] [address] * BUN (07/30/2021 16:26 EDT) Pathologist [facility] BUN 17 10 - 26 mg/dL 07/30/2021 17:04 EDT [facility] Blood VENOUS BLOOD / Unknown 07/30/2021 16:26 EDT 07/30/2021 16:26 EDT us J Luis Gregory MD RDMS CHEMISTRY & BLOOD GAS ORD ERABLES Final Result Performing Organization Address [facility] Co de Phone Number [facility] [address] [place] [address] * (ABNORMAL) DIFFERENTIAL, AUTOMATED MANUAL (07/30/2021 16:22 EDT) [facility] % Neutrophils 91.1 % 07/30/2021 17:22 EDT [facility] % Lymphocytes 8.0 % 07/30/2021 17:22 T [facility] % Monocytes 0.9 % 07/30/2021 17:22 [facility] Ovalocytes 2+ 07/30/2021 17:22 [facility] Absolute Neutrophils 1.23(L) 2.20 - 8.85 K/cmm 07/30/2021 17:22 [facility] Absolute Lymphocytes 0.11(L) 1.09 - 3.30 K/cmm 07/30/2021 17:22 [facility] Absolute Monocytes 0.01(L) 0.10 - 0.80 K/cmm 07/30/2021 17:22 T [facility] Blood VENOUS BLOOD / Unknown Venipuncture / Unknown 07/30/2021 16:22 EDT 07/30/2021 16:24 EDT us J Luis Gregory MD, RDNH HEMATOLOGY & PF4 ORDERABL ES Final Result Performing Organization Address City/[facility]/ZIP Co de Phone Number [facility] [address] [place] [address] * TROPONIN I (07/30/2021 16:22 EDT) [facility] Troponin I (ng/mL) <0.034 <0.034 ng/mL 07/30/2021 17:15 EDT [facility] Blood VENOUS BLOOD / Unknown Venipuncture / Unknown 07/30/2021 16:22 EDT 07/30/2021 16:24 EDT Narrative [facility] - 07/30/2021 17:15 EDT The results of this assay can be falsely lowered due to the consumption of Biotin. us J Luis Gregory MD [facility] CHEMISTRY & BLOOD GAS ORD ERABLES Final Result [facility] [address] [place] [address] * (ABNORMAL) COMPLETE BLOOD COUNT AND DIFFERENTIAL (07/30/2021 16:22 EDT) [facility] WBC 1.35(L) 4.00 - 12.40 K/cmm 07/30/2021 17:00 [facility] RBC 3.73(L) 3.86 - 5.04 M/cmm 07/30/2021 17:00 [facility] Hemoglobin 10.4(L) 11.6 - 15.2 gm/dL 07/30/2021 17:00 [facility] HCT 32.0(L) 34.9 - 44.4 % 07/30/2021 17:00 [facility] MCV 86 81 - 98 fl 07/30/2021 17:00 [facility] MCH 27.9 26.7 - 33.3 pg 07/30/2021 17:00 [facility] MCHC 32.5 32.1 - 35.9 gm/dL 07/30/2021 17:00 [facility] RDW-CV 15.6(H) <14.7 % 07/30/2021 17:00 [facility] RDW-SD 48.7 <50.4 fl 07/30/2021 17:00 EDT [facility] PLT 52(L) 141 - 377 K/cmm 07/30/2021 17:00 EDT [facility] MPV 10.4 9.5 - 12.7 fl 07/30/2021 17:00 EDT [facility] Type of Differential: Manual 07/30/2021 17:00 EDT [facility] Blood VENOUS BLOOD / Unknown Venipuncture / Unknown 07/30/2021 16:22 EDT 07/30/2021 16:24 EDT us J Luis Gregory MD RDMS PACKAGES & DNA PROBE ORDE RABLES Final Result [facility] [address] [place] [address] * HOLD LAVENDER TOP (07/30/2021 16:22 EDT) Hold Hold 07/30/2021 17:30 EDT [facility] Blood VENOUS BLOOD / Unknown Venipuncture / Unknown 07/30/2021 16:22 EDT 07/30/2021 16:24 EDT us Sal Hubbard MD LAB INFO SERVICE AND SUPPORT & PHONE RESULT Final Result [facility] [address] [place] [address] * HOLD GREEN TOP (07/30/2021 16:22 EDT) Hold Hold 07/30/2021 17:30 EDT [facility] Blood VENOUS BLOOD / Unknown Venipuncture / Unknown 07/30/2021 16:22 EDT 07/30/2021 16:24 EDT us Sal Hubbard MD LAB INFO SERVICE AND SUPPORT & PHONE RESULT Final Result [facility] [address] [place] [address] * HOLD BLUE TOP (07/30/2021 16:22 EDT) Hold Hold 07/30/2021 17:30 EDT [facility] Blood VENOUS BLOOD / Unknown Venipuncture / Unknown 07/30/2021 16:22 EDT 07/30/2021 16:24 EDT us Sal Hubbard MD LAB INFO SERVICE AND SUPPORT & PHONE RESULT Final Result [facility] [address] [place] [address] * EKG 12-LEAD (07/30/2021 16:15 EDT) 07/30/2021 16:1 5 EDT Narrative [facility] EKG - 08/14/2021 15:17 EDT ?[facility] Emergency ? Test Date: ?2021-07-30 Pat Name: ? PHYLISS BOOTHE ?Department: ?? ED ? Room: ? AC19 Gender: ? Female ? 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 Requested By: ANNALISA ROME Order Number: [id number] ? oJse PHIPPS: ?? SERENE DIOP MD ? Measurements Intervals ?[place] ? Rate: ? 80 ? P: ?62 SD: ? 132 ?QRS: ?63 QRSD: ? 103 ?T: ?49 QT: ? 377 ? QTc: ?435 ? Interpretive Statements SINUS RHYTHM POSSIBLE LEFT ATRIAL ENLARGEMENT Compared to ECG 07/16/2021 14:16:23 No significant changes I reviewed the tracing and have either agreed or edited the findings in this report. Electronically Signed On 08-14-2021 15:17:11 EDT by SERENE DIOP MD. 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 Electronically Signed On 08-14-2021 15:17:11 EDT by SERENE SKINNER. us Sal Hubbard MD CARDIAC ECG ORDERABLES Final Result [facility] EKG documented in this encounter Visit Diagnoses Diagnosis Syncope and collapse- Primary Dental infection Acute apical periodontitis of pulpal origin documented in this encounter Administered Medications Inactive Administered Medications - up to 3 most recent administrations Medication Order MAR Action Action Date Dose Rate Site amoxicillin (AMOXIL) capsule 500 mg 500 mg, oral, NOW X1, 1 dose, On Kirsten 07/30/21 at 1845, STAT Given 07/30/2021 18:41 EDT 500 mg HYDROmorphone (DILAUDID) tablet 2 mg 2 mg, oral, NOW X1, 1 dose, On Kirsten 07/30/21 at 1845, STAT Given 07/30/2021 18:41 EDT 2 mg HYDROmorphone (PF) (DILAUDID) 0.5 mg/0.5 mL syringe 1 mg 1 mg, intravenous, NOW X1, 1 dose, On Kirsten 07/30/21 at 1730, STAT Given 07/30/2021 17:29 EDT 1 mg lidocaine (PF) 10 mg/mL (1 %) injection 2 mg 2 mg, intradermal, PRN, 4 doses, Starting on Kirsten 07/30/21 at 1646, Until Kirsten 07/30/21 at 2114, peripheral intravenous catheter placement, STAT ondansetron (PF) (ZOFRAN) injection 4 mg 4 mg, intravenous, NOW X1, 1 dose, On Kirsten 07/30/21 at 1730, STAT Given 07/30/2021 17:29 EDT 4 mg sodium chloride 0.9 % BOLUS 1,000 mL 1,000 mL, intravenous, NOW X1, 1 dose, On Kirsten 07/30/21 at 1700, STAT New Bag 07/30/2021 17:01 EDT 1,000 mL 1000 mL/hr documented in this encounter Active and Recently Administered Medications Times are shown in EDT. Scheduled Medication Order 07/28/2021 07/29/2021 07/30/2021 amoxicillin (AMOXIL) capsule 500 mg (COMPLETED) 500 mg, oral, NOW X1, 1 dose, On Kirsten 07/30/21 at 1845, STAT 1841 (Given - Provid er: Jacy Leos RN) HYDROmorphone (DILAUDID) tablet 2 mg (COMPLETED) 2 mg, oral, NOW X1, 1 dose, On Kirsten 07/30/21 at 1845, STAT 1841 (Given - Provid er: Jacy Leos RN) HYDROmorphone (PF) (DILAUDID) 0.5 mg/0.5 mL syringe 1 mg (COMPLETED) 1 mg, intravenous, NOW X1, 1 dose, On Kirsten 07/30/21 at 1730, STAT 1729 (Given - Provid er: Jacy Leos RN) ondansetron (PF) (ZOFRAN) injection 4 mg (COMPLETED) 4 mg, intravenous, NOW X1, 1 dose, On Kirsten 07/30/21 at 1730, STAT 1729 (Given - Provid er: Jacy Leos RN) sodium chloride 0.9 % BOLUS 1,000 mL (COMPLETED) 1,000 mL, intravenous, NOW X1, 1 dose, On Kirsten 07/30/21 at 1700, STAT 1701 (New Bag - Prov ider: Jacy Leos RN)1823 (Completed - Provider: Jacy Leos RN) PRN Medication Order 07/28/2021 07/29/2021 07/30/2021 lidocaine (PF) 10 mg/mL (1 %) injection 2 mg 2 mg, intradermal, PRN, 4 doses, Starting on Kirsten 07/30/21 at 1646, Until Kirsten 07/30/21 at 2114, peripheral intravenous catheter placement, STAT documented in this encounter Orders Medications Ordered That Luc ht Not Have Been Administered Count Last Ordered Date First Ordered Date lidocaine (PF) 10 mg/mL (1 % ) injection 2 mg 1 07/30/2021 documented in this encounter Care Teams Survey Technician Relationship Specialty Start Date End Date Emigdio Veronica MD [address] [place] [address] PCP - General Internal Medicine - Primary Care 05/22/20 02/21/24 documented as of this encounter
--- OUTSIDE RECORDS SUMMARY | 2024-11-22 17:12 | XMS_ITS | Encounter Summary ---
Author Organization [facility] Address [address] [place] [address] Care Team Providers Care Records Manager Name Role Phone Emigdio Veronica MD Primary Care Provider + Reason for Visit * Reason Onset Date Comments Dental Problem 07/30/2021 infection and te eth breaking Labs Only 07/30/2021 low white blood count Follow-up 07/30/2021 Encounter Details Date Type Department Care Team (Late st Contact Info) Description 07/30/[address] 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 Paige on her condition and she advised her to call her dentist. She also prescribed an antibiotic, Amoxicillin. Gena expressed concern as she has been running a fever of 100-101 for the past week and is unable to keep anything in her stomach. She reports she can't be seen by a dentist until next week. Advised her she would need to be seen at a local Urgent Care or ER. Patient reports she has someone to assist her. * Telephone Encounter - Chaparrita Salazar - 07/30/2021 1522 EDT Patient is calling back. * Telephone Encounter - Kianna To - 07/30/2021 1423 EDT Patient calling again to speak to nurse. Please call back. * Telephone Encounter - Dana Dodson - 07/30/2021 1204 EDT Patient has an infection in her mouth. Her teeth are breaking and her white blood count is low. Sheis having difficulty eating. Her PCP told her to call this office. documented in this encounter Plan of Treatment Upcoming Encounters Date Type Department Care Team (Late st Contact Info) Description 01/04/2025 13:00 EST Office Visit [facility] Ophthalmology - [address] [phone] Gagandeep Rome MD [address] [place] [address], [facility] [address] [place] [phone] 02/11/2025 13:30 EDT Telemedicine [facility] Hematology & Oncology - [address] [phone] Dana Padilla MD [address] [place] [address], [facility] [address] [place] [phone] documented as of this encounter Visit Diagnoses Not on filedocumented in this encounter Care Teams Records Manager Relationship Specialty Start Date End Date Emigdio Veronica MD [address] [place] [phone] PCP - General Internal Medicine - Primary Care 05/22/20 02/21/24 documented as of this encounter
--- OUTSIDE RECORDS SUMMARY | 2024-11-22 17:12 | XMS_ITS | Encounter Summary ---
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 CBC reviewed - WBC 1.15, Hgb 9.7, ANC 1.01 Nothing urgent to do tonight, can wait for PCP in AM. documented in this encounter Plan of Treatment Upcoming Encounters Date Type Department Care Team (Late st Contact Info) Description 01/04/2025 13:00 EST Office Visit [facility] Ophthalmology - [address] [phone] Gagandeep Rome MD [address] [place] [address] [address] [place] [phone] 02/11/2025 13:30 EDT Telemedicine [facility] Hematology & Oncology - [address] 580[address] Dana Padilla MD [address] [place] [address], [address] [place] [phone] documented as of this encounter Visit Diagnoses Not on filedocumented in this encounter Care Teams Roping Machine Tender Relationship Specialty Start Date End Date Emigdio Veronica MD [address] [place] [phone] PCP - General Internal Medicine - Primary Care 05/22/20 02/21/24 documented as of this encounter
--- OUTSIDE RECORDS SUMMARY | 2024-11-22 17:12 | XMS_ITS | Encounter Summary ---
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 The patient indicates understanding of these issues and agrees with the plan. No barriers. * Telephone Encounter - Emigdio Veronica MD - 07/17/2021 1455 EDT I'm going to recommend the latter. I will allow her to fill tomorrow, but the start date is Tuesday.No further early refills. * Telephone Encounter - Karol Hoff RN - 07/17/2021 1446 EDT Patient states she is going to be out 2 days early tomorrow. She has been having increased pain lately, see recent ED visits. Pended for refill for tomorrow if appropriate, reviewed with patient refill is actually due Tuesday.Other option would be patient could brain picker tomorrow, but first start date would be Tuesday with theclear expectation next one won't have an early fill. * Telephone Encounter - Ebony Toscano - 07/17/2021 1230 EDT HYDROmorphone (DILAUDID) 2 mg tablet [[id number]] ??ENDED ?? Order Details Dose: 2 mg Route: oral Frequency: EVERY 12 HOURS PRN for Pain Dispense Quantity: 56 Tablet Refills: 0 ?? Sig: Take 1 Tablet by mouth every 12 hours as needed for up to 10 days for Pain. Early fill for travel ??Daily Max: 4 mg ?? Start Date: 06/22/21 End Date: 07/02/21 Written Date: 06/16/21 Expiration Date: 09/14/21 Earliest Fill Date: 06/22/21 Original Order: HYDROmorphone (DILAUDID) 2 mg tablet [[id number]] Providers Ordering and Authorizing Provider: Emigdio Veronica MD [facility]/pharmacy #[id number] Pharmacy? Yes Patient out of medication? needs before the weekend. Last Refill Date: 06.22.21 Refills left? (explain exceptions requiring early refill) No Recent Visits Date Type Provider Dept 05/14/21 Office Visit Emigdio Veronica MD [facility] 04/29/21 Office Visit Emigdio Veronica MD [facility] 04/16/21 Office Visit Emigdio Veronica MD [facility] 04/10/21 Office Visit Emigdio Veronica MD [facility] 03/06/21 Office Visit Emigdio Veronica MD [facility] 01/27/21 Office Visit Dom Mackay MD [facility] 11/20/20 Office Visit Emigdio Veronica MD [facility] 10/15/20 Office Visit Emigdio Veronica MD [facility] 10/10/20 Office Visit Scottie Campuzano PA-C [facility] 09/05/20 Office Visit Emigdio Veronica MD [facility] Showing recent visits within past 540 days with a meds authorizing provider and meeting all other requirements Future Appointments Date Type Provider Dept 07/22/21 Appointment Scottie Campuzano PA-C [facility] Showing future appointments within next 150 days with a meds authorizing provider and meeting all other requirements Future appointment: Already Scheduled Ebony Dorcas 07/17/2021 12:31 documented in this encounter Plan of Treatment Upcoming Encounters Date Type Department Care Team (Late st Contact Info) Description 01/04/2025 13:00 EST Office Visit [facility] Ophthalmology - [address] [phone] Gagandeep Rome MD [address] [place] [address], [facility] [address] [place] [phone] 02/11/2025 13:30 EDT Telemedicine [facility] Hematology & Oncology [address] [phone] Dana Padilla MD [address] [place] [address] [address] [place] [address] documented as of this encounter Visit Diagnoses Not on filedocumented in this encounter Discontinued Medications Medication Sig Discontinue Reason Start Date End Da te HYDROmorphone (DILAUDID) 2 mg tablet Take 1 Tablet by mouth every 12 hours as needed for up to 10 days for Pain. Early fill for travel Daily Max: 4 mg Reorder 06/22/2021 07/17/2021 documented as of this encounter Care Teams Forest Fire Lookout Relationship Specialty Start Date End Date Emigdio Veronica MD [address] [place] [phone] PCP - General Internal Medicine - Primary Care 05/22/20 02/21/24 documented as of this encounter
--- OUTSIDE RECORDS SUMMARY | 2024-11-22 17:12 | XMS_ITS | Encounter Summary ---
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 Washington. ASSESSMENT Housing: Renting a room from old friends. Live alone in the room with her dog, tony lopez. Has been renting for about 7 years. She does help the friends out who are older. Transportation: No vehicle. Relies on the couple she lives with. She could use Medicaid rides and sign up for the [employer]? service. Employment/Financial: Disabled. Health Insurance: Medicare/Medicaid Family Support: Son in [place], Daughter in [place], Daughter in [facility], Sister in [place], Brother also out of state. Has a few girlfriends she speaks with via a support group, mostly messaging online - [place] Rm Rose. Community/Agency Support: [employer] Other: NA TOPIC OF CONVERSATION: Engaged patient in conversation related to positive behavior change, self- management, goal setting and action planning using motivational interviewing and active listening. ?? Phone call with Tara ?? She is seeking dental care for multiple dental issues. She has Medicaid $1 K a year to spend on dental care including extractions. She needs a referral to a dentist who can accept Medicaid. ?? Discussed increasing transportation resources and applying for subsidized housing but she declined today and would prefer to focus on the dental issue first. PLAN: Referred to [facility] dental clinic and to [facility] in [place]. Tara is going to call [facility] first since they can offer a sliding scale. Explained we can also get a voucher from [facility] for her extractions as the $1K Medicaid money wont cover all the work. CHT YOLANDA will follow up with Gena. .. Adult Primary Care [address], [address], [place] Total Time: 20 min phone, 5 min charting Referral: Dental Follow up: CHT YOLANDA Status: Active documented in this encounter Plan of Treatment Upcoming Encounters Date Type Department Care Team (Late st Contact Info) Description 01/04/2025 13:00 EST Office Visit [facility] Ophthalmology - [address] [phone] Gagandeep Rome MD [address] [place] [address], [facility] [address] [place] [phone] 02/11/2025 13:30 EDT Telemedicine [facility] Hematology & Oncology - [address] [phone] Dana Padilla MD [address] [place] [address], [facility] 2 [place] [phone] documented as of this encounter Visit Diagnoses Not on filedocumented in this encounter Care Teams Saddle And Side Wire Stitcher Relationship Specialty Start Date End Date Emigdio Veronica MD [address] [place] [phone] PCP - General Internal Medicine - Primary Care 05/22/20 02/21/24 documented as of this encounter
--- OUTSIDE RECORDS SUMMARY | 2024-11-22 17:12 | XMS_ITS | Encounter Summary ---
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 Not on [...] Office Visit [facility] Ophthalmology - [address] [phone] Gagandeep Rome MD [address] [place] [address], [facility] 5 [place] [phone] 02/11/2025 13:30 EDT Telemedicine [facility] Cancer Center Hematology & Oncology - [address] [phone] Dana Padilla MD [address] [place] [address], [address] [place] [phone] documented as of this encounter Visit Diagnoses Not on filedocumented in this encounter Care Teams Proof Carrier Relationship Specialty Start Date End Date Emigdio Veronica MD [address] [place] [phone] PCP - General Internal Medicine - Primary Care 05/22/20 02/21/24 documented as of this encounter
--- OUTSIDE RECORDS SUMMARY | 2024-11-22 17:12 | XMS_ITS | Encounter Summary ---
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, [facility] 5 [place] [phone] 02/11/2025 13:30 EDT Telemedicine [facility] Cancer Center Hematology & Oncology - [address] [phone] Dana Padilla MD [address] [facility], [address] [place] [address] documented as of this encounter Procedures Procedure Name Priority Date/Time Associated Diagnosis Comments COMPLETE BLOOD COUNT STAT 09/08/2021 11:41 EDT Pancytopenia (HCC) (HCC-[facility]) Portal vein thrombosis documented in this encounter Results * (ABNORMAL) COMPLETE BLOOD COUNT (09/08/2021 11:41 EDT) WBC 1.19(L) 4.00 - 12.40 K/cmm 09/08/2021 12:39 EDT [facility] RBC 3.81(L) 3.86 - 5.04 M/cmm 09/08/2021 12:39 T [facility] Hemoglobin 10.4(L) 11.6 - 15.2 gm/dL 09/08/2021 12:39 T [facility] HCT 33.1(L) 34.9 - 44.4 % 09/08/2021 12:39 T [facility] MCV 87 81 - 98 fl 09/08/2021 12:39 T [facility] MCH 27.3 26.7 - 33.3 pg 09/08/2021 12:39 EDT [facility] MCHC 31.4(L) 32.1 - 35.9 gm/dL 09/08/2021 12:39 T [facility] RDW-CV 15.2(H) <14.7 % 09/08/2021 12:39 EDT [facility] RDW-SD 48.5 <50.4 fl 09/08/2021 12:39 EDT [facility] PLT 48(L) 141 - 377 K/cmm 09/08/2021 12:39 EDT [facility] MPV 11.0 9.5 - 12.7 fl 09/08/2021 12:39 EDT [facility] Blood VENOUS BLOOD / Unknown Venipuncture / Unknown 09/08/2021 11:41 EDT 09/08/2021 11:43 EDT us Starr Paige MD HEMATOLOGY & PF4 ORDERABLES Final Result [facility] [address] [place] [address] documented in this encounter Visit Diagnoses Diagnosis Pancytopenia (HCC-CMS) Other pancytopenia Portal vein thrombosis documented in this encounter Care Teams Staff Counsel Relationship Specialty Start Date End Date Emigdio Veronica MD [address] [place] [address] PCP - General Internal Medicine - Primary Care 05/22/20 02/21/24 documented as of this encounter
--- OUTSIDE RECORDS SUMMARY | 2024-11-22 17:12 | XMS_ITS | Encounter Summary ---
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 180 Tablet 1 09/18/2021 2 documented in this encounter Miscellaneous Notes * Telephone Encounter - Scottie Campuzano PA-C - 09/18/2021 1224 EDT Message sent about dose of lasix * Telephone Encounter - Noemi Hall - 09/18/2021 1050 EDT patient states you had discussed increasing the dosage of furosemide. States the current script is the same as old dose. She wants to know if you changed your mind before she picks up documented in this encounter Plan of Treatment Upcoming Encounters Date Type Department Care Team (Late st Contact Info) Description 01/04/2025 13:00 EST Office Visit [facility] Ophthalmology - [address] [phone] Gagandeep Rome MD [address] [place] [address], [facility] 5 [place] [address] 02/11/2025 13:30 EDT Telemedicine [facility] Hematology & Oncology - [address] [phone] Dana Padilla MD [address] [place] [address], [facility] 2 [place] [address] documented as of this encounter Visit Diagnoses Not on filedocumented in this encounter Discontinued Medications Medication Sig Discontinue Reason Start Date End Da te furosemide (LASIX) 20 mg tablet Take 1 Tablet by mouth daily. Duplicate order 09/18/2021 09/18/2021 documented as of this encounter Care Teams Inner Layer Scrubber Tender Relationship Specialty Start Date End Date Emigdio Veronica MD [address] [place] [address] PCP - General Internal Medicine - Primary Care 05/22/20 02/21/24 documented as of this encounter
--- OUTSIDE RECORDS SUMMARY | 2024-11-22 17:12 | XMS_ITS | Encounter Summary ---
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 Has appointment before next RX is due. * Telephone Encounter - Noemi Hall - 08/11/2021 1018 EDT Requested Prescriptions Pending Prescriptions Disp Refills ??? HYDROmorphone (DILAUDID) 2 mg tablet 56 Tablet 0 Sig: Take 1 Tablet by mouth every 12 hours as needed for up to 28 days for Pain. Early fill for travel Daily Max: 4 mg [facility]/pharmacy #[id number] - [place], [place] - [address] [place] [address] Confirmed Pharmacy? Yes Patient out of medication? Yes: Needs Refill Now Last Refill Date: 07.20.21 Refills left? (explain exceptions requiring early refill) No Recent Visits Date Type Provider Dept 07/22/21 Office Visit Scottie Campuzano PA-C [place] Adult Prim Care 05/14/21 Office Visit Emigdio Veronica MD [place] Adult Prim [facility] 04/29/21 Office Visit Emigdio Veronica MD [place] Adult Prim [facility] 04/16/21 Office Visit Emigdio Veronica MD [place] Adult Prim [facility] 04/10/21 Office Visit Emigdio Veronica MD [place] Adult Prim [facility] 03/06/21 Office Visit Emigdio Veronica MD [place] Adult Prim [facility] 01/27/21 Office Visit Dom Mackay MD [place] Adult Prim [facility] 11/20/20 Office Visit Emigdio Veronica MD [place] Adult Prim [facility] 10/15/20 Office Visit Emigdio Veronica MD [place] Adult Prim [facility] 10/10/20 Office Visit Scottie Campuzano PA-C [place] Adult Prim Care Showing recent visits within past 540 days with a meds authorizing provider and meeting all other requirements Future Appointments Date Type Provider Dept 08/27/21 Appointment Emigdio Veronica MD [place] Adult Prim [facility] Showing future appointments within next 150 days with a meds authorizing provider and meeting all other requirements Future appointment: Already Scheduled Noemi Hall 08/11/2021 10:19 documented in this encounter Plan of Treatment Upcoming Encounters Date Type Department Care Team (Late st Contact Info) Description 01/04/2025 13:00 EST Office Visit [facility] Ophthalmology - [address] [phone] Gagandeep Rome MD [address] [place] [address], [facility] 5 [place] [phone] 02/11/2025 13:30 EDT Telemedicine [facility] Hematology & Oncology [address] [phone] Dana Padilla MD [address] [place] [address], [facility] 2 [place] [phone] documented as of this encounter Visit Diagnoses Not on filedocumented in this encounter Discontinued Medications Medication Sig Discontinue Reason Start Date End Da te HYDROmorphone (DILAUDID) 2 mg tablet Take 1 Tablet by mouth every 12 hours as needed for up to 28 days for Pain. Early fill for travel Daily Max: 4 mg Reorder 07/20/2021 08/11/2021 documented as of this encounter Care Teams Metal Fabricator Helper Relationship Specialty Start Date End Date Emigdio Veronica MD [address] [place] [phone] PCP - General Internal Medicine - Primary Care 05/22/20 02/21/24 documented as of this encounter
--- OUTSIDE RECORDS SUMMARY | 2024-11-22 17:12 | XMS_ITS | Encounter Summary ---
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 spironolactone (ALDACTONE) 50 mg tablet [Pharmacy Med Name: SPIRONOLACTONE 50 MG TABLET] 30 Tablet 0 Sig: TAKE 1 TABLET BY MOUTH EVERY DAY [facility]/pharmacy #[id number] - [address] Confirmed Pharmacy? Yes Patient out of medication? Unknown Last Refill Date: 06.15.21 Refills left? (explain exceptions requiring early refill) No Recent Visits Date Type Provider Dept 07/22/21 Office Visit Scottie Campuzano PA-C [place] Adult Prim Care 05/14/21 Office Visit Emigdio Veronica MD [place] Adult Prim [facility] 04/29/21 Office Visit Emigdio Veronica MD [place] Adult Prim Care 04/16/21 Office Visit Emigdio Veronica MD [place] Adult Prim [facility] 04/10/21 Office Visit Emigdio Veronica MD [place] Adult Prim [facility] 03/06/21 Office Visit Emigdio Veronica MD [place] Adult Prim [facility] 01/27/21 Office Visit Dom Mackay MD [place] Adult Prim [facility] 11/20/20 Office Visit Emigdio Veronica MD [place] Adult Prim Care 10/15/20 Office Visit Emigdio Veronica MD [place] Adult Prim Care 10/10/20 Office Visit Scottie Campuzano PA-C [place] Adult Prim Care Showing recent visits within past 540 days with a meds authorizing provider and meeting all other requirements Future Appointments Date Type Provider Dept 08/27/21 Appointment Emigdio Veronica MD [place] Adult Prim Care Showing future appointments within next 150 days with a meds authorizing provider and meeting all other requirements Future appointment: Already Scheduled Ebony Toscano 07/28/2021 16:11 documented in this encounter Plan of Treatment Upcoming Encounters Date Type Department Care Team (Late st Contact Info) Description 01/04/2025 13:00 EST Office Visit [facility] Ophthalmology - [address] [phone] Gagandeep Rome MD [address] [place] [address] 5 [place] [phone] 02/11/2025 13:30 EDT Telemedicine [facility] Hematology & Oncology [address] [phone] Dana Padilla MD [address] [place] [address] 2 [place] [phone] documented as of this encounter Visit Diagnoses Not on filedocumented in this encounter Discontinued Medications Medication Sig Discontinue Reason Start Date End Da te spironolactone (ALDACTONE) 50 mg tablet TAKE 1 TABLET BY MOUTH EVERY DAY 06/15/2021 07/28/2021 documented as of this encounter Care Teams Ultrasound Coordinator Relationship Specialty Start Date End Date Emigdio Veronica MD [address] [place] [phone] PCP - General Internal Medicine - Primary Care 05/22/20 02/21/24 documented as of this encounter
--- OUTSIDE RECORDS SUMMARY | 2024-11-22 17:12 | XMS_ITS | Encounter Summary ---
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 She was able to get an appointment at the [facility] dental clinic on [facility] for 08/06/21. She continues to be in pain and has trouble eating and is understandablyfrustrated by the wait time to see the dentist. Discussed her insurance/dental coverage. She does have Medicaid which offers $1000/annually for dental care. This will reset in November too. She can also call General Assistance for vouchers for tooth extractions if need be. Will have to see what the recommendations are from the dentist next week. She agreed to call if she needs further assistance. .. Adult Primary Care [address], [address], [place] Total Time: 10 min phone Referral: [facility] dental clinic Follow up: As needed Status: Graduated documented in this encounter Plan of Treatment Upcoming Encounters Date Type Department Care Team (Late st Contact Info) Description 01/04/2025 13:00 EST Office Visit [facility] Ophthalmology - [address] [phone] Gagandeep Rome MD [address] [place] [address], [facility] 5 [place] [phone] 02/11/2025 13:30 EDT Telemedicine [facility] Hematology & Oncology - [address] [address] Dana Padilla MD [address] [place] [address], [facility] 2 [place] [phone] documented as of this encounter Visit Diagnoses Not on filedocumented in this encounter Care Teams Geological Specialist Relationship Specialty Start Date End Date Emigdio Veronica MD 2 [place] [phone] PCP - General Internal Medicine - Primary Care 05/22/20 02/21/24 documented as of this encounter
--- OUTSIDE RECORDS SUMMARY | 2024-11-22 17:12 | XMS_ITS | Encounter Summary ---
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 spironolactone (ALDACTONE) 50 mg tablet [Pharmacy Med Name: SPIRONOLACTONE 50 MG TABLET] 90 Tablet 1 Sig: TAKE 1 TABLET BY MOUTH EVERY DAY [facility][id number] - [place], [place] - [address] [facility] Confirmed Pharmacy? Yes Patient out of medication? Unknown Last Refill Date: 08.19.21 Refills left? (explain exceptions requiring early refill) No Recent Visits Date Type Provider Dept 07/22/21 Office Visit Scottie Campuzano PA-C [place] Adult Prim Care 05/14/21 Office Visit Emigdio Veronica MD [place] Adult Prim Care 04/29/21 Office Visit Emigdio Veronica MD [place] Adult Prim Care 04/16/21 Office Visit Emigdio Veronica MD [place] Adult Prim [facility] 04/10/21 Office Visit Emigdio Veronica MD [place] Adult Prim [facility] 03/06/21 Office Visit Emigdio Veronica MD [place] Adult Prim Care 01/27/21 Office Visit Dom Mackay MD [place] Adult Prim Care 11/20/20 Office Visit Emigdio Veronica MD [place] Adult Prim Care 10/15/20 Office Visit Emigdio Veronica MD [place] Adult Prim Care 10/10/20 Office Visit Scottie Campuzano PA-C [place] Adult Prim Care Showing recent visits within past 540 days with a meds authorizing provider and meeting all other requirements Future Appointments Date Type Provider Dept 09/18/21 Appointment Scottie Campuzano PA-C [place] Adult Prim Care Showing future appointments within next 150 days with a meds authorizing provider and meeting all other requirements Future appointment: Already Scheduled Ebony Toscano 09/08/2021 11:14 documented in this encounter Plan of Treatment Upcoming Encounters Date Type Department Care Team (Late st Contact Info) Description 01/04/2025 13:00 EST Office Visit [facility] Ophthalmology - [address] [phone] Gagandeep Rome MD [address] [place] [address], [facility] 5 [place] [phone] 02/11/2025 13:30 EDT Telemedicine [facility] Hematology & Oncology - [address] [address] Dana Padilla MD [address] [place] [address], [facility] 2 [place] [phone] documented as of this encounter Visit Diagnoses Not on filedocumented in this encounter Discontinued Medications Medication Sig Discontinue Reason Start Date End Da te spironolactone (ALDACTONE) 50 mg tablet TAKE 1 TABLET BY MOUTH EVERY DAY 08/19/2021 09/09/2021 documented as of this encounter Care Teams Greek Professor Relationship Specialty Start Date End Date Emigdio Veronica MD [address] [place] [phone] PCP - General Internal Medicine - Primary Care 05/22/20 02/21/24 documented as of this encounter
--- OUTSIDE RECORDS SUMMARY | 2024-11-22 17:12 | XMS_ITS | Encounter Summary ---
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 Patient has called dental office several times and has not been able to get a call back from dentaloffice. * Telephone Encounter - Heike Rosado RN - 07/23/2021 1553 EDT [facility] HEIKE ROSADO RN 07/23/2021 15:53 * Telephone Encounter - Scottie Campuzano PA-C - 07/23/2021 1321 EDT [facility] Dr Veronica reviewed the information from her visit yesterday. He agrees with the plan that she needs to see a dentist as soon as possible. He is not comfortable increasing her dose of pain medications at this time. He agrees that she should be on antibiotics, to help treat any oral infection. ----Also, please ask if the T social workers have called yet to help her get in with a dentist /oral surgeon. Thanks, Scottie Cc: Dr Veronica documented in this encounter Plan of Treatment Upcoming Encounters Date Type Department Care Team (Late st Contact Info) Description 01/04/2025 13:00 EST Office Visit [facility] [place] [address] Gagandeep Rome MD [address] [place] [address] 5 [place] [phone] 02/11/2025 13:30 EDT Telemedicine [facility] Hematology & Oncology - [address] [phone] aDna Padilla MD [address] [facility], [facility] 2 [place] [phone] documented as of this encounter Visit Diagnoses Not on filedocumented in this encounter Care Teams Industrial Ecology Technician Relationship Specialty Start Date End Date Emigdio Veronica MD [address] [place] [phone] PCP - General Internal Medicine - Primary Care 05/22/20 02/21/24 documented as of this encounter
--- OUTSIDE RECORDS SUMMARY | 2024-11-22 17:12 | XMS_ITS | Encounter Summary ---
Author Organization [facility] Address [address] [place] [address] Care Team Providers Care Molder Meat Name Role Phone Emigdio Veronica MD Primary Care Provider + Encounter Details Date Type Department Care Team (Late st Contact Info) Description 07/28/2021 16:45 EDT Phlebotomy Only [facility] ED Center 2 Phlebotomy [address] [place], [place] [phone] Lamp Shade Maker, [facility] Phlebotomy Pancytopenia ([facility]); Portal vein thrombosis; MUSA (acute kidney injury) ([facility]); Leukopenia, unspecified type Social History Tobacco Use Types Packs/Day [...] 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 Not on [...] Barbara Cross RN documented in this encounter Plan of Treatment Upcoming Encounters Date Type Department Care Team (Late st Contact Info) Description 01/04/2025 13:00 EST Office Visit [facility] Ophthalmology - [address] [phone] Gagandeep Rome MD [address] [place] [address], [facility] 5 [place] [phone] 02/11/2025 13:30 EDT Telemedicine [facility] Hematology & Oncology [address] [phone] Dana Padilla MD [address] [place] [address] 2 [place] [phone] documented as of this encounter Procedures Procedure Name Priority Date/Time Associated Diagnosis Comments DIFFERENTIAL, AUTOMATED MANUAL Today 07/28/2021 17:18 EDT Leukopenia, unspecified type COMPLETE BLOOD COUNT AND DIFFERENTIAL STAT 07/28/2021 17:18 EDT Leukopenia, unspecified type BASIC METABOLIC PANEL (BMP) Routine 07/28/2021 17:18 EDT MUSA (acute kidney injury) ([facility]) documented in this encounter Results * (ABNORMAL) DIFFERENTIAL, AUTOMATED MANUAL (07/28/2021 17:18 EDT) % Neutrophils 87.8 % 07/28/2021 18:09 EDT [facility] % Lymphocytes 7.0 % 07/28/2021 18:09 EDT [facility] % Monocytes 5.2 % 07/28/2021 18:09 EDT [facility] Absolute Neutrophils 1.01(L) 2.20 - 8.85 K/cmm 07/28/2021 18:09 [facility] Absolute Lymphocytes 0.08(L) 1.09 - 3.30 K/cmm 07/28/2021 18:09 [facility] Absolute Monocytes 0.06(L) 0.10 - 0.80 K/cmm 07/28/2021 18:09 [facility] Blood VENOUS BLOOD / Unknown Venipuncture / Unknown 07/28/2021 17:18 EDT 07/28/2021 17:22 EDT Scottie Campuzano PA-C HEMATOLOGY & PF4 ORDERABLES Final Result Performing Organization Address City/State/[facility] Co de Phone Number [facility] [address] [place] [address] * (ABNORMAL) COMPLETE BLOOD COUNT AND DIFFERENTIAL (07/28/2021 17:18 EDT) WBC 1.15(L) 4.00 - 12.40 K/cmm 07/28/2021 17:38 [facility] RBC 3.40(L) 3.86 - 5.04 M/cmm 07/28/2021 17:38 [facility] Hemoglobin 9.7(L) 11.6 - 15.2 gm/dL 07/28/2021 17:38 [facility] HCT 29.2(L) 34.9 - 44.4 % 07/28/2021 17:38 [facility] MCV 86 81 - 98 fl 07/28/2021 17:38 [facility] MCH 28.5 26.7 - 33.3 pg 07/28/2021 17:38 [facility] MCHC 33.2 32.1 - 35.9 gm/dL 07/28/2021 17:38 [facility] RDW-CV 15.6(H) <14.7 % 07/28/2021 17:38 [facility] RDW-SD 48.7 <50.4 fl 07/28/2021 17:38 [facility] PLT 48(L) 141 - 377 K/cmm 07/28/2021 17:38 [facility] MPV 9.8 9.5 - 12.7 fl 07/28/2021 17:38 [facility] Type of Differential: Manual 07/28/2021 17:38 [facility] Blood VENOUS BLOOD / Unknown Venipuncture / Unknown 07/28/2021 17:18 EDT 07/28/2021 17:22 EDT Scottie Campuzano PA-C PACKAGES & DN A PROBE ORDERABLES Final Result [facility] [address] [place] [address] * (ABNORMAL) BASIC METABOLIC PANEL (BMP) (07/28/2021 17:18 EDT) Sodium 139 136 - 145 mmol/L 07/28/2021 17:39 [facility] Potassium 4.2 3.5 - 5.0 mEq/L 07/28/2021 17:39 [facility] Chloride 100 96 - 110 mEq/L 07/28/2021 17:39 [facility] CO2 Total 28 22 - 32 mEq/L 07/28/2021 17:39 [facility] Glucose 149(H) 70 - 100 mg/dL 07/28/2021 17:39 [facility] Calcium 9.0 8.5 - 10.5 mg/dL 07/28/2021 17:39 [facility] Calculated Calcium 9.2 8.5 - 10.5 mg/dL 07/28/2021 17:39 [facility] BUN 13 10 - 26 mg/dL 07/28/2021 17:39 [facility] Creatinine 1.04 0.52 - 1.04 mg/dL 07/28/2021 17:39 [facility] eGFR 58(L) >60 mL/min/1.7 3m2 07/28/2021 17:39 EDT [facility] Comment:eGFR calculated lobito coppola CKD-EPI equation for non- Americans. Multiply eGFR by 1.16 for patients. Blood VENOUS BLOOD / Unknown Venipuncture / Unknown 07/28/2021 17:18 EDT 07/28/2021 17:22 EDT us Emigdio Veronica MD CHEMISTRY & BLOOD GAS OR DERABLES Final Result [facility] [address] [place] [address] documented in this encounter Visit Diagnoses Diagnosis Pancytopenia ([facility]) Other pancytopenia Portal vein thrombosis MUSA (acute kidney injury) ([facility]) Acute kidney failure, unspecified Leukopenia, unspecified type documented in this encounter Care Teams Molder Meat Relationship Specialty Start Date End Date Emigdio Veronica MD [address] [place] [phone] PCP - General Internal Medicine - Primary Care 05/22/20 02/21/24 documented as of this encounter
--- OUTSIDE RECORDS SUMMARY | 2024-11-22 17:12 | XMS_ITS | Encounter Summary ---
Author Organization [facility] Address [address] [place] [address] Care Team Providers Care Shrub Planter Name Role Phone Emigdio Veronica MD Primary Care Provider + Reason for Visit * Reason Comments Post-ED Follow Up Seen 07/16/21 and see n in May Dental Pain Loss and broken teet h Encounter Details Date Type Department Care Team (Late st Contact Info) Description 07/22/2021 8:45 EDT Office Visit [facility] Adult Primary Care - [place] [address] [place] [address] Scottie Campuzano PA-C [address] [place] [address] Leukopenia, unspecified type (Primary Dx); Dental infection; Poor dentition Social History Tobacco Use Types Packs/Day Years [...] 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 No / Unsure 07/16/2021 13:56 EDT documented as of this encounter Last Filed Vital Signs Vital Sign Reading Time Taken Comments Blood Pressure 117/56 07/22/2021 0841 EDT Pulse 86 07/22/2021 0841 EDT Temperature 36.3 ??C (97.3 ??F) 07/22/2021 0841 EDT Respiratory Rate 16 07/22/2021 0841 EDT Oxygen Saturation - - Inhaled Oxygen Concentration - - Weight 90.7 kg (200 lb) 07/22/2021 0841 EDT Height - - Body Mass Index 34.33 07/16/2021 1356 EDT documented in this encounter Functional Status * Are you deaf or do you have serious difficulty hearing? Answer Date of Assessment Author No 06/29/2021 21:11 EDT Barbara Cross, RN * Are you blind or do [...] tabs at bedtime. 75 Tablet 2 07/22/2021 10/17/2021 penicillin v potassium (VEETID) 500 mg tablet Take 1 Tablet by mouth 2 times daily for 10 days. 20 Tablet 07/22/2021 08/01/2021 documented in this encounter Progress Notes * Scottie Campuzano PA-C - 07/22/2021 0845 EDT Subjective: Patient ID: Tara Yun is an 60 y.o. female. Chief Complaint Patient presents with ??? Post-ED Follow Up Seen 07/16/21 and seen in May ??? Dental Pain Loss and broken teeth HPI Patient complains of dental pain. She says that in the last weeks her mouth has become more painful. She has 1 lower tooth that is loose and is very painful for her. Her sleep is poor. She would like to increase her dose of trazodone She is not having fever or chills She is not eating well for the past few days, because her mouth hurts so much. Patient Active Problem List Diagnosis ??? Pancytopenia (HCC-CMS) ??? Mild persistent asthma without complication ??? Drug-seeking behavior ??? Hypersplenism syndrome ??? Splenic vein thrombosis ??? Hematuria, gross ??? Chronic pain syndrome ??? Cirrhosis of liver (HCC-CMS) ??? Obesity, Class II, BMI 35-39.9 ??? Hypothyroidism ??? Abdominal wall hernia ??? Allergic rhinitis ??? Partial small bowel obstruction (HCC-CMS) ??? HUEY (obstructive sleep apnea) ??? Dyspnea ??? Nephrolithiasis ??? Left ureteral stone ??? COPD (chronic obstructive pulmonary disease) (HCC-CMS) ??? Portal vein thrombosis ??? Frequent falls ??? Fluid overload ??? Moderate protein-calorie malnutrition (HCC-CMS) Outpatient Medications Marked as Taking for the 07/22/21 encounter (Office Visit) with Scottie Campuzano PA-C Medication Sig Note Dispense Refill ??? albuterol (ACCUNEB) 2.5 mg [...] TABLET BY MOUTH EVERY DAY 30 Tablet 0 ??? SYMBICORT 160-4.5 mcg/actuation HFA aerosol inhaler inhaler Inhale 2 Puffs as directed daily. 1Inhaler 1 ??? [DISCONTINUED] traZODone (DESYREL) 100 mg tablet Take 2 Tabs by mouth at bedtime. 07/22/2021: increase to 250 mg 180 Tab 1 ROS - See HPI Objective: BP 117/56 Pulse 86 Temp 36.3 ??C (97.3 ??F) (Tympanic) Resp 16 Wt 90.7 kg (200 lb) BMI 34.33 kg/m?? Physical Exam Appears tired, but comfortable. No distress Teeth: One loose lower incisor, with some swelling and erythema of surrounding gums. Mood --depressed. Affect flat. Normal thought content Assessment / Plan: Dental pain, mild dental infection in context of chronic leukopenia. We will treat with penicillin to help reduce chance of worsening infection. CBC with differential Schedule follow-up with Dr. Veronica Increase trazodone dose to 250 mg at bedtime CHT referral done to assist in getting dental care. Tara was seen today for post-ed follow up and dental pain. Diagnoses and all orders for this visit: Leukopenia, unspecified type - COMPLETE BLOOD COUNT AND DIFFERENTIAL; Future - AMB CONS/FOLLOW UP COMM[facility]ITY [facility] TEAM; Future Dental infection - AMB CONS/FOLLOW UP COMM[facility]ITY [facility]ALTH TEAM; Future Poor dentition - AMB CONS/FOLLOW UP COMMUNITY HEALTH TEAM; Future Other orders - penicillin v potassium (VEETID) 500 mg tablet; Take 1 Tablet by mouth 2 times daily for 10 days. - traZODone (DESYREL) 100 mg tablet; Take 2 and 1/2 tabs at bedtime. Med Orders Placed This Visit and Additions to the Medication List Medications ??? penicillin v potassium (VEETID) 500 mg tablet Sig: Take 1 Tablet by mouth 2 times daily for 10 days. Dispense: 20 Tablet Refill: 0 ??? traZODone (DESYREL) 100 mg tablet Sig: Take 2 and 1/2 tabs at bedtime. Dispense: 75 Tablet Refill: 2 Dose increase Orders Placed This Encounter Procedures ??? Complete Blood Count and Differential Standing Status: Future Standing Expiration Date: 10/20/2021 Order Specific Question: Release to Patient (Note: Choosing Manual Release will only block results from tests performed at [facility] and does not apply for Miscellaneous Test Order) Answer: Immediate ??? AMB CONS/FOLLOW UP COMM[facility]ITY [facility]ALTH TEAM As we discussed in your visit today, someone will be contacting you from the Community [facility] Team to schedule an appointment with you. If you do not hear from the [facility] within a week please call the Community Health Team at [facility]: [phone]. Standing Status: Future Referral Priority: Routine Referral Type: Consult Referral Reason: Specialty Services Required Number of Visits Requested: 1 Scottie Campuzano PA-C Next appt at [place] Office: 08/27/2021 07/22/2021 9:26 documented in this encounter Plan of Treatment Upcoming Encounters Date Type Department Care Team (Late st Contact Info) Description 01/04/2025 13:00 EST Office Visit [facility] Ophthalmology - [address] [address] Gagandeep Rome MD [address] [place] [address], [facility] [address] [place] [id number] 02/11/2025 13:30 EDT Telemedicine [facility] [address] [id number] Dana Padilla MD [address] [place] [address], [facility] [address] [place] [address] documented as of this encounter Results * (ABNORMAL) COMPLETE BLOOD COUNT AND DIFFERENTIAL (07/28/2021 17:18 EDT) WBC 1.15(L) 4.00 - 12.40 K/cmm 07/28/2021 17:38 [facility] RBC 3.40(L) 3.86 - 5.04 M/cmm 07/28/2021 17:38 [facility] Hemoglobin 9.7(L) 11.6 - 15.2 gm/dL 07/28/2021 17:38 [facility] HCT 29.2(L) 34.9 - 44.4 % 07/28/2021 17:38 [facility] MCV 86 81 - 98 fl 07/28/2021 17:38 [facility] MCH 28.5 26.7 - 33.3 pg 07/28/2021 17:38 [facility] MCHC 33.2 32.1 - 35.9 gm/dL 07/28/2021 17:38 [facility] RDW-CV 15.6(H) <14.7 % 07/28/2021 17:38 [facility] RDW-SD 48.7 <50.4 fl 07/28/2021 17:38 [facility] PLT 48(L) 141 - 377 K/cmm 07/28/2021 17:38 [facility] MPV 9.8 9.5 - 12.7 fl 07/28/2021 17:38 [facility] Type of Differential: Manual 07/28/2021 17:38 [facility] Blood VENOUS BLOOD / Unknown Venipuncture / Unknown 07/28/2021 17:18 EDT 07/28/2021 17:22 EDT Scottie Campuzano PA-C PACKAGES & DN A PROBE ORDERABLES Final Result [facility] [address] [place] [address] documented in this encounter Visit Diagnoses Diagnosis Leukopenia, unspecified type- Primary Dental infection Acute apical periodontitis of pulpal origin Poor dentition Unspecified disorder of the teeth and supporting structures documented in this encounter Discontinued Medications Medication Sig Discontinue Reason Start Date End Da te traZODone (DESYREL) 100 mg tablet Take 2 Tabs by mouth at bedtime. Dose adjustment 04/10/2021 07/22/2021 documented as of this encounter Care Teams Shrub Planter Relationship Specialty Start Date End Date Emigdio Veronica MD [address] [place] [phone] PCP - General Internal Medicine - Primary Care 05/22/20 02/21/24 documented as of this encounter
--- OUTSIDE RECORDS SUMMARY | 2024-11-22 17:13 | XMS_ITS | Encounter Summary ---
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 05/30 nonexer tional CP since this AM that radiates to jaw, associated with nausea, palpitations, SOB, denies dizziness. N/V yesterday, took zofran without relief. States she gained 9 lbs since yesterday. Hx COPD, CHF (recent admission for fluid overload), splanic artery occlusion. Known covid pos exposure last week, covid neg test 2 days ago, fully vaccinated. Pt arrives a&ox3, VSS. 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 Yes 07/14/2021 22:19 EDT documented as of this encounter Last Filed Vital Signs Vital Sign Reading Time Taken Comments Blood Pressure 103/51 07/15/2021 0000 EDT Pulse - - Temperature 36.2 ??C (97.1 ??F) 07/14/20212216 EDT Respiratory Rate 12 07/15/2021 0115 EDT Oxygen Saturation 93% 07/15/2021 0115 EDT Inhaled Oxygen Concentration - - Weight 94.3 kg (208 lb) 07/14/20212216 EDT Height 162.6 cm (5' 4) 07/14/2021 2217 EDT Body Mass Index 35.7 07/14/2021 2217 EDT documented in this encounter Functional Status * Are you deaf or do you have serious difficulty hearing? Answer Date of Assessment Author No 06/29/2021 21:11 EDT Barbara Cross RN * Are you blind or do you have serious difficulty seeing, even when wearing glasses? Answer Date of Assessment Author No 06/29/2021 21:11 DAVIDT Barbara Cross RN * Do you have serious difficulty walking or climbing stairs? (5 years old or older) Answer Date of Assessment Author No 06/29/2021 21:11 DAVIDT Barbara Cross RN * Do you have difficulty dressing [...] this encounter Discharge Instructions * Discharge Instructions* Daniel Agudelo MD - 07/15/2021 2:04 EDT You were seen here in the emergency department for nausea and pain. Please use Zofran as needed for nausea. Please continue to take your medications as prescribed. Laboratory studies showed that your kidney function has worsened. Please follow- up with your primary care provider within 3-5 days to have your labs repeated to check your kidney function. Please return to the emergency department immediately if you experience worsening pain, difficulty breathing, dizziness, inability to drink fluids or take your medications, or any other new or worsening symptoms. documented in this encounter [...] directed every 4 hours as needed. 1 furosemide (LASIX) 20 mg tablet Take 1 Tab by mouth daily. 90 Tab 1 04/10/2021 1 HYDROmorphone (DILAUDID) 2 mg tablet Take 1 Tablet by mouth every 12 hours as needed for up to 10 days for Pain. Early fill for travel Daily Max: 4 mg 56 Tablet 06/22/2021 1 hydromorphone HCl (DILAUDID ORAL) Take 2 mg by mouth every 12 hours. 1 levothyroxine (SYNTHROID) 25 mcg tablet Take 1 Tab by mouth daily. Unknown dose 90 Tab 3 11/03/2020 1 ondansetron (ZOFRAN) 4 mg tablet Take 1 Tab by mouth 2 times daily as needed for Nausea. 60 Tab 3 03/30/2021 1 sertraline (ZOLOFT) 50 mg tablet Take 1 Tab by mouth daily. 90 Tab 1 04/10/2021 1 spironolactone (ALDACTONE) 50 mg tablet TAKE 1 TABLET BY MOUTH EVERY DAY 30 Tablet 06/15/2021 1 SYMBICORT 160-4.5 mcg/actuation HFA aerosol inhaler inhalerIndicatio ns:COPD with asthma ([facility]) Inhale 2 Puffs as directed daily. 1 Inhaler 1 07/08/2021 1 traZODone (DESYREL) 100 mg tablet Take 2 Tabs by mouth at bedtime. 180 Tab 1 04/10/2021 1 documented as of this encounter Discharge Disposition Disposition Code Departure Means Destination Home or Self Detention documented in this encounter ED Notes * Tata Colón RN - 07/15/2021 0230 EDT Discharge instructions and follow-up with PCP reviewed with patient. Patient verbalizes understanding of instructions. Intact IV removed without complication. VSS at time of discharge. Patient assisted from department via wheelchair, home via cab. * Tata Colón RN - 07/15/2021 0137 EDT Pt tolerating nuria john, UO approx 725 mL. Refusing spironolactone here in ED, would like to take dose at home. * Tata Colón RN - 07/15/2021 0135 EDT Blood drawn via saline lock per protocol, green tube(s) sent to lab per order. * Toni Rebolledo MD - 07/14/2021 2220 EDT This patient received an evaluation and medical screening exam for emergent medical conditions at the [facility] on 07/14/2021. This note was created and authored by DANIEL AGUDELO MD working under the supervision of Toni Rebolledo MD. This documentation is recorded by Zully Foster acting as Scribe under the direction and presence of Toni Rebolledo MD and DANIEL AGUDELO MD. Toni Rebolledo MD and DANIEL AGUDELO MD: We personally performed the services recorded by the scribe in our presence. We confirm the scribe's documentation has been reviewed by us to accurately and completely record our work, treatment, procedures, and medical decision making. ED Attending???s Supervisory Statement I, Tnoi Rebolledo MD, performed a history and exam of this patient and discussed the case with the resident. I have reviewed and edited this note, and the documentation is consistent with my findings, assessment and plan. I fully participated in the medical decision making. Complex, 60-year-old woman with pancytopenia followed closely as an outpatient, cirrhosis (nonalcoholic), hepatosplenomegaly, who presents with subacute epigastric pain. 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 The epigastric pain has been going on she said for at least several weeks, and sometimesflares up much like this.. She is not been able to tolerate her pain pills at home due to nausea. She has had no dark or bloody stools. On arrival, she is nontoxic in appearance has epigastric tenderness to palpation without rebound or guarding, no distention, no scleral icterus is noted, she is inno respiratory distress, she has lower extremity edema. Gena was observed, labs were checked. Her labs were similar to prior. Low suspicion for acute cardiac pathology, particularly with 2 - troponins, and abdominal tenderness on exam that explains hersymptoms. She is felt mildly short of breath but this is not new for her, low suspicion for a PE, this improved with diuretic therapy. Her abdominal exam improved with her home medication diuretic therapy, and over time in the ED. I suspect this is her ongoing pain related to her chronic illnesses.She improved during a period of observation here in the emergency department and I don't think she needs emergent imaging. Low clinical suspicion for acute surgical pathology, splenic rupture, bowel o bstruction or other acutely dangerous process. We will plan for discharge and close outpatient follow-up, she was discharged in stable condition. She was comfortable with this plan. reviewed the patient's EKG and I agree with the resident's interpretation. FINA Boothe is a 60 y.o. female with a history significant for cirrhosis, COPD, HUEY, asthma, anxiety, depression and thyroid disease who presents to the ED via EMS for abdominal pain. Patient hashad epigastric discomfort since being discharged from the hospital on 07/02 but it acutely worsened this morning. The pain radiates into her left chest and left jaw. She has associated nausea and several episodes of vomiting. She took Zofran yesterday which did not offer relief. She has not been able to take her regular medications including her dieretics secondary to emesis. She denies any urinary complaints. She was exposed to someone with COVID last week but tested negative 2 days ago and is f ully vaccinated. She has had an intermittent cough beginning 2 days ago. She has been short of breath and has been using 2 liters of oxygen at home during the day. She had a bowel movement earlier today. She denies any melena. Has had some issues with intermittent blood in her stools which have been chronic. On chart review, patient was admitted on 06/29 and discharged on 07/02 for decompensating cirrhosis. She was given IV Lasix and 6.3 L were diuresed. She was discharged on p.o. spironolactone and Lasix. History was provided by: Patient and medical history Patient's pertinent PMH, FH, SH were reviewed PRN ROS Review of Systems Respiratory: Positive for cough and shortness of breath. Gastrointestinal: Positive for abdominal pain, blood in stool, nausea and vomiting. Genitourinary: Negative for dysuria. A 10-point review of systems was performed. The patient answered negative to all questions with theexceptions of those explicitly detailed as positives in the HPI. Pertinent negatives are also explicitly stated. Physical Exam Vital Signs Vitals Reassessment?: Yes Temp: 36.2 ??C (97.1 ??F) Temp src: Oral Heart Rate: 88 BPM Cardiac Rhythm: Normal sinus rhythm Resp: 13 SpO2: 96 % BP: 104/48 BP Device: BP Machine BP Patient Position: Sitting BP Cuff Location: Right arm O2 Device: None (Room air) Nursing notes and vital signs were reviewed. Constitutional: Chronically ill-appearing 60-year-old female HEENT: PEERL, EOMI, clear conjunctivae. No conjunctival pallor. Mouth: Moist oral mucosa without apparent lesions Neck: Full ROM, trachea midline Heart: Extremities warm and well perfused. 2+ radial pulses bilaterally. Regular pulse. Lungs: No tachypnea. No evidence of respiratory distress. No audible stridor or wheezing. Abdomen: Soft ND. Tender to palpation to palpation in the epigastrium with no rebound tenderness orguarding. Abdominal scars from prior surgeries. Skin: No overt rashes or lesions on exposed skin. No jaundice. Extremities: Moving spontaneously, warm, radial/DP/PT pulses 2+ b/l. No lower extremity edema. 1+ pitting edema to mid shins bilaterally Neuro: CN grossly intact, normal speech, no focal deficits. No tremors or rigors. Psych: Appropriate affect. Linear thought process. Procedures Procedures None Medical Decision Making / ED Course Tara Boothe is a 60 y.o. female with history significant for cirrhosis, COPD, HUEY, asthma, anxiety, depression and thyroid disease who presents to the ED via EMS for acute on chronic abdominal discomfort vomiting. Patient has had epigastric discomfort since 07/02 that worsened this morning. She has associated nausea and vomiting and has not been able to take her diuretics. Differential diagnosis includes but is not limited to: Decompensated cirrhosis, chronic nausea and vomiting, acute coronary syndrome, pulmonary edema,, pneumonia, COVID-19. The patient was given the following interventions: Patient treated with 0.5 mg IV Dilaudid, 4 mg IVZofran and 20 mg IV Lasix. An EKG was obtained and independently interpreted: Sinus rhythm at a rate of 81 with normal axis and normal intervals. No ST elevations or depressions. Laboratory results independently reviewed, significant for: Initial troponin negative. Negative COVID.leukopenia close to baseline with WBCs 1.2, absolute neutrophils 1.02. NT proBNP not elevated. Normal transaminases. Creatinine 1.28, recent baseline of approximately 1.0. Lipase not elevated. Repeat troponin negative. Imaging obtained was reviewed and independently interpreted: Chest X-ray: Linear opacities in the right and left lung bases most likely atelectasis. Upon reevaluation, this patient feels significantly improved after IV Zofran and is tolerating p.o.well. She did not take her diuretics today she was given a dose of 20 mg IV Lasix as well as IV Dilaudid, she is prescribed this at home. On reevaluation she is sleeping comfortably in bed. (01:37) Patient able to tolerate PO nuria john without nausea or emesis. No overt ischemic changes on EKG and negative serial troponins. She denies any substernal chest pain and is rather endorsing acute on chronic epigastric discomfort. No evidence of pancreatitis. Low suspicion for bowel obstruction as she has been having bowel movements today and is tolerating p.o. here. At this time, the patient was stable for discharge home with instructions to take Zofran as needed which she has at home, to continue taking regular medications including her diuretics and to follow up with PCP. She was advised to have her renal function rechecked in the next few days, I suspect that she is somewhat intravascularly depleted in the setting of her vomiting today. She reports that she does have laboratory work done once a week in the outpatient setting and will have this repeated. Strict return precautions discussed prior to discharge. Disposition decisions were made weighing risks and [...] as expected, or other new concerns arise. Disposition Upon departure from the Emergency Department, the patient's pain seemed to be 1 on a zero to ten scale. Condition at departure from the Emergency Department: Stable Clinical Impression Final diagnoses: Chest pain, atypical documented in this encounter Plan of Treatment Upcoming Encounters Date Type Department Care Team (Late st Contact Info) Description 01/04/2025 13:00 EST Office Visit [facility] Ophthalmology [address] [address] Gagandeep Rome MD [address] [place] [address], [facility] [address] [place] [address] 02/11/2025 13:30 EDT Telemedicine [facility] Hematology & Oncology [address] [id number] Dana Padilla MD [address] [place] [address] [address] [place] [phone] documented as of this encounter Procedures Procedure Name Priority Date/Time Associated Diagnosis Comments ECG REPORT - SCANNED 07/16/2021 13:36 EDT TROPONIN I STAT 07/15/2021 1:31 EDT XR CHEST PORTABLE 1 VIEW STAT 07/14/2021 23:22 EDT DIFFERENTIAL, AUTOMATED MANUAL Today 07/14/2021 23:14 EDT HOLD BLUE TOP STAT 07/14/2021 23:14 EDT SCREENING GLUCOSE STAT 07/14/2021 23: 14 EDT TROPONIN I STAT 07/14/2021 23:14 EDT COMPLETE BLOOD COUNT AND DIFFERENTIAL STAT 07/14/2021 23:14 EDT BUN STAT 07/14/2021 23:14 EDT NT PRO BNP STAT 07/14/2021 23:14 EDT MAGNESIUM STAT 07/14/2021 23:14 EDT LIPASE STAT 07/14/2021 23:14 EDT CREATININE STAT 07/14/2021 23:14 EDT HEPATIC FUNCTION PANEL (ALB,ALK PHOS,ALT,AST,DBIL,TOT LUIS,TOT PROT) STAT 07/14/2021 23:14 EDT ELECTROLYTES STAT 07/14/2021 23:14 EDT EKG 12-LEAD STAT 07/14/2021 22:23 EDT ZZCOVID-19 TEST [facility] PCR Today 07/14/2021 22:20 EDT COVID-19 TESTING Routine 07/14/2021 22:2 0 EDT documented in this encounter Results * ECG REPORT - SCANNED (07/16/2021 13:36 EDT) 07/16/2021 13:3 6 EDT us Scan 2 Billing Department Supervisor PROCEDURE/MINOR SURGICAL OR DERABLES Final Result * TROPONIN I (07/15/2021 1:31 EDT) Troponin I (ng/mL) <0.034 <0.034 ng/mL 07/15/2021 2:02 EDT [facility] Blood VENOUS BLOOD / Unknown Venipuncture / Unknown 07/15/2021 1:31 EDT 07/15/2021 1:32 EDT Narrative [facility] - 07/15/2021 2:02 EDT The results of this assay can be falsely lowered due to the consumption of Biotin. us Daniel Agudelo MD CHEMISTRY & BLOOD GAS ORDERA BLES Final Result [facility] [address] [place] [address] * XR CHEST PORTABLE 1 VIEW (07/14/2021 23:22 EDT) Anatomical Region Laterality Modality Computed Radiogr aphy 07/15/2021 9:14 EDT Impressions 07/15/2021 9:14 EDT 1. Linear opacities in the right and left lung bases most likely atelectasis. 2. Chronic small airways disease, stable I have personally reviewed the images and the above interpretation and agree with the findings. Narrative 07/15/2021 9:14 EDT XR CHEST PORTABLE 1 VIEW ??07/14/2021 11:05 PM CLINICAL HISTORY/COMMENTS: Chest pain COMPARISON: Chest CT June 13, 2021, chest x-ray June 29, 2021. FINDINGS: Single portable AP view of the chest. Lines/tubes: ??None Soft tissues, bones and extrathoracic findings: No fractures. Cardiac and mediastinal contours: The cardiomediastinal silhouette is normal. Lungs: The linear opacities in the right and left lung bases likely represent subsegmental atelectasis. Interstitial markings are diffusely coarsened, the appearance is stable. Pleura: No visible pleural abnormalities. Procedure Note Prashanth Siddiqui MD - 07/15/2021 XR CHEST PORTABLE 1 VIEW 07/14/2021 11:05 PM CLINICAL HISTORY/COMMENTS: Chest pain COMPARISON: Chest CT June 13, 2021, chest x-ray June 29, 2021. FINDINGS: Single portable AP view of the chest. Lines/tubes: None Soft tissues, bones and extrathoracic findings: No fractures. Cardiac and mediastinal contours: The cardiomediastinal silhouette isnormal. Lungs: The linear opacities in the right and left lung bases likelyrepresent subsegmental atelectasis. Interstitial markings are diffuselycoarsened, the appearance is stable. Pleura: No visible pleural abnormalities. IMPRESSION 1. Linear opacities in the right and left lung bases most likelyatelectasis. 2. Chronic small airways disease, stable I have personally reviewed the images and the above interpretation andagree with the findings. us Daniel Agudelo MD [facility] DIAGNOSTIC IMAGING ORDER YANN Final Result * (ABNORMAL) DIFFERENTIAL, AUTOMATED MANUAL (07/14/2021 23:14 EDT) % Neutrophils 85.1 % 07/15/2021 0:33 T [facility] % Lymphocytes 10.5 % 07/15/2021 0:33 T [facility] % Monocytes 3.5 % 07/15/2021 0:33 T [facility] % Basophils 0.9 % 07/15/2021 0:33 [facility] Schistocytes Increased schistocytes are seen but less than 1% (1+) of the RBCs 07/15/2021 0:33 [facility] Ovalocytes 2+ 07/15/2021 0:33 [facility] Absolute Neutrophils 1.02(L) 2.20 - 8.85 K/cmm 07/15/2021 0:33 EDT [facility] Absolute Lymphocytes 0.13(L) 1.09 - 3.30 K/cmm 07/15/2021 0:33 EDT [facility] Absolute Monocytes 0.04(L) 0.10 - 0.80 K/cmm 07/15/2021 0:33 EDT [facility] ABS Basophils 0.01 0.01 - 0.11 K/cmm 07/15/2021 0:33 EDT [facility] Blood VENOUS BLOOD / Unknown Venipuncture / Unknown 07/14/2021 23:14 EDT 07/14/2021 23:21 EDT Daniel Agudelo MD HEMATOLOGY & PF4 ORDERABLES Final Result Performing Organization Address [facility] Co de Phone Number [facility] [address] [place] [address] * LIPASE (07/14/2021 23:14 EDT) Lipase 55 <251 U/L 07/14/2021 23:36 EDT [facility] Blood VENOUS BLOOD / Unknown Venipuncture / Unknown 07/14/2021 23:14 EDT 07/14/2021 23:21 EDT Daniel Agudelo MD CHEMISTRY & BLOOD GAS ORDERA BLES Final Result Performing Organization Address [facility] Co de Phone Number [facility] [address] [place] [address] * NT PRO BNP (07/14/2021 23:14 EDT) NT-pro BNP 53 <125 pg/mL 07/14/2021 23:50 EDT [facility] Comment:The results of this assay can be falsely lowered due to consumption of Biotin. Blood VENOUS BLOOD / Unknown Venipuncture / Unknown 07/14/2021 23:14 EDT 07/14/2021 23:21 EDT us Daniel Agudelo MD CHEMISTRY & BLOOD GAS ORDERA BLES Final Result [facility] [address] [place] [address] * (ABNORMAL) HEPATIC FUNCTION PANEL (ALB,ALK PHOS,ALT,AST,DBIL,TOT LUIS,TOT PROT) (07/14/2021 23:14 EDT) Total Protein 6.2(L) 6.3 - 8.2 g/dL 07/14/2021 23:36 EDT [facility] Albumin 3.6 3.4 - 4.9 g/dL 07/14/2021 23:36 EDT [facility] Bilirubin, Total <0.5 <1.4 mg/dL 07/14/20 23:36 EDT [facility] Conjugated Bilirubin 0.0 0.0 - 0.3 mg/dL 07/14/2021 23:36 T [facility] Unconjugated Bilirubin 0.5 0.0 - 1.1 mg/dL 07/14/2021 23:36 T [facility] Alkaline Phosphatase 105 38 - 126 U/L 07/14/2021 23:36 T [facility] ALT 11 <35 U/L 07/14/2021 23:36 T [facility] AST 21 15 - 46 U/L 07/14/2021 23:36 T [facility] Blood VENOUS BLOOD / Unknown Venipuncture / Unknown 07/14/2021 23:14 EDT 07/14/2021 23:21 EDT us Daniel Agudelo MD CHEMISTRY & BLOOD GAS ORDERA BLES Final Result [facility] [address] [place] [address] * HOLD BLUE TOP (07/14/2021 23:14 EDT) Hold Hold 07/15/2021 0:30 EDT [facility] Blood VENOUS BLOOD / Unknown Venipuncture / Unknown 07/14/2021 23:14 EDT 07/14/2021 23:21 EDT Daniel Agudelo MD LAB INFO SERVICE AND SUPPORT & PHONE RESULT Final Result [facility] [address] [place] [address] * SCREENING GLUCOSE (07/14/2021 23:14 EDT) [facility] Glucose, Screening 87 70 - 100 mg/dL 07/14/2021 23:36 EDT [facility] Blood VENOUS BLOOD / Unknown Venipuncture / Unknown 07/14/2021 23:14 EDT 07/14/2021 23:21 EDT Daniel Agudelo MD CHEMISTRY & BLOOD GAS ORDERA BLES Final Result Performing Organization Address City/[facility]/ZIP Co de Phone Number [facility] [address] [place] [address] * MAGNESIUM (07/14/2021 23:14 EDT) [facility] Magnesium 1.9 1.7 - 2.8 mg/dL 07/14/2021 23:36 EDT [facility] Blood VENOUS BLOOD / Unknown Venipuncture / Unknown 07/14/2021 23:14 EDT 07/14/2021 23:21 EDT Daniel Agudelo MD CHEMISTRY & BLOOD GAS ORDERA BLES Final Result [facility] [address] [place] [address] * TROPONIN I (07/14/2021 23:14 EDT) [facility] Troponin I (ng/mL) <0.034 <0.034 ng/mL 07/14/2021 23:50 EDT [facility] Blood VENOUS BLOOD / Unknown Venipuncture / Unknown 07/14/2021 23:14 EDT 07/14/2021 23:21 EDT Narrative [facility] - 07/14/2021 23:50 EDT The results of this assay can be falsely lowered due to the consumption of Biotin. Daniel Agudelo MD CHEMISTRY & BLOOD GAS ORDERA BLES Final Result Performing Organization Address [facility] de Phone Number [facility] [address] [place] [address] * ELECTROLYTES (07/14/2021 23:14 EDT) Sodium 136 136 - 145 mmol/L 07/14/2021 23:36 EDT [facility] Potassium 4.3 3.5 - 5.0 mEq/L 07/14/2021 23:36 EDT [facility] Chloride 100 96 - 110 mEq/L 07/14/2021 23:36 EDT [facility] CO2 Total 26 22 - 32 mEq/L 07/14/2021 23:36 EDT [facility] Blood VENOUS BLOOD / Unknown Venipuncture / Unknown 07/14/2021 23:14 EDT 07/14/2021 23:21 EDT Daniel Agudelo MD CHEMISTRY & BLOOD GAS ORDERA BLES Final Result Performing Organization Address [facility] de Phone Number [facility] [address] [place] [address] * (ABNORMAL) CREATININE (07/14/2021 23:14 EDT) Creatinine 1.28(H) 0.52 - 1.04 mg/dL 07/14/2021 23:36 EDT [facility] eGFR 46(L) >60 mL/min/1.7 3m2 07/14/2021 23:36 EDT [facility] Comment:eGFR calculated lobito coppola CKD-EPI equation for non- Americans. Multiply eGFR by 1.16 for patients. Blood VENOUS BLOOD / Unknown Venipuncture / Unknown 07/14/2021 23:14 EDT 07/14/2021 23:21 EDT Daniel Agudelo MD CHEMISTRY & BLOOD GAS ORDERA BLES Final Result Performing Organization Address City/[facility]/ZIP Co de Phone Number [facility] [address] [place] [address] * BUN (07/14/2021 23:14 EDT) Pathologist [facility] BUN 19 10 - 26 mg/dL 07/14/2021 23:36 EDT [facility] Blood VENOUS BLOOD / Unknown Venipuncture / Unknown 07/14/2021 23:14 EDT 07/14/2021 23:21 EDT us Daniel Agudelo MD CHEMISTRY & BLOOD GAS ORDERA BLES Final Result Performing Organization Address [facility] Co de Phone Number [facility] [address] [place] [address] * (ABNORMAL) COMPLETE BLOOD COUNT AND DIFFERENTIAL (07/14/2021 23:14 EDT) [facility] WBC 1.20(L) 4.00 - 12.40 K/cmm 07/15/2021 0:00 T [facility] RBC 3.43(L) 3.86 - 5.04 M/cmm 07/15/2021 0:00 [facility] Hemoglobin 9.7(L) 11.6 - 15.2 gm/dL 07/15/2021 0:00 [facility] HCT 29.6(L) 34.9 - 44.4 % 07/15/2021 0:00 [facility] MCV 86 81 - 98 fl 07/15/2021 0:00 [facility] MCH 28.3 26.7 - 33.3 pg 07/15/2021 0:00 [facility] MCHC 32.8 32.1 - 35.9 gm/dL 07/15/2021 0:00 [facility] RDW-CV 15.8(H) <14.7 % 07/15/2021 0:00 [facility] RDW-SD 50.3 <50.4 fl 07/15/2021 0:00 EDT [facility] PLT 38(L) 141 - 377 K/cmm 07/15/2021 0:00 EDT [facility] MPV 10.1 9.5 - 12.7 fl 07/15/2021 0:00 EDT [facility] Type of Differential: Manual 07/15/2021 0:00 EDT [facility] Blood VENOUS BLOOD / Unknown Venipuncture / Unknown 07/14/2021 23:14 EDT 07/14/2021 23:21 EDT us Daniel Agudelo MD PACKAGES & DNA PROBE ORDERAB LES Final Result Performing Organization Address City/State/[facility] Co de Phone Number [facility] [address] [place] [address] * EKG 12-LEAD (07/14/2021 22:23 EDT) 07/14/2021 22:2 3 EDT Narrative [facility] - 07/16/2021 13:30 EDT ?[facility] ? Test Date: ?2021-07-14 Pat Name: ? PHYLISS BOOTHE ?Department: ?? ED ? Room: ? AC12 Gender: ? Female ? 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 [id number] : ?1960 ? Requested By: MANISH MONTOYA R Order Number: [id number] ? Reading : ?? DESI VALDIVIA MD ? Measurements Intervals ?[place] ? Rate: ? 81 ? P: ?37 RI: ? 128 ?QRS: ?33 QRSD: ? 94 ? T: ?43 QT: ? 353 ? QTc: ?411 ? Interpretive Statements SINUS RHYTHM Non specific ST/ T wave abnormalities WARNING: DATA QUALITY MAY AFFECT INTERPRETATION I reviewed the tracing and have either agreed or edited the findings in this report. Electronically Signed On 07-16-2021 13:30:19 EDT by DESI VALDIVIA MD. 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 Electronically Signed On 07-16-2021 13:30:19 EDT by DESI NEAL. Neida Mejia MD CARDIAC ECG ORDERABLES Final R esult Performing Organization Address [facility] Co de Phone Number [facility] * COVID-19 TEST [facility] PCR (07/14/2021 22:20 EDT) Swab ENTIRE NASOPHARYNX / Unknown Swab / Unknown 07/14/2021 22:20 EDT 07/14/2021 22:24 EDT Toni Rebolledo MD MICROBIOLOGY - GENERAL ORDERAB LES Final Result Performing Organization Address City/[facility]/ZIP Co de Phone Number [facility] [address] [place] [id number] * COVID-19 TESTING (07/14/2021 22:20 EDT) COVID-19 rt-PCR Result Negative Negative 07/14/2021 23:22 EDT [facility] Comment: This test has [...] history, and epidemiological information. Performed on the [employer] GeneXpert Instrument Performing Lab GeneXpert [facility] 07/14/2021 23:22 EDT [facility] Swab ENTIRE NASOPHARYNX / Unknown Swab / Unknown 07/14/2021 22:20 EDT 07/14/2021 22:24 EDT us Toni Rebolledo MD MICROBIOLOGY - GENERAL ORDERAB LES Final Result [facility] [address] [place] [address] documented in this encounter Visit Diagnoses Diagnosis Chest pain, atypical- Primary Other chest pain documented in this encounter Administered Medications Inactive Administered Medications - up to 3 most recent administrations Medication Order MAR Action Action Date Dose Rate Site furosemide (LASIX) injection 20 mg 20 mg, intravenous, NOW X1, 1 dose, On Tue07/14/21 at 2315, STAT Given 07/14/2021 23:30 EDT 20 mg HYDROmorphone (PF) (DILAUDID) 0.5 mg/0.5 mL syringe 0.5 mg 0.5 mg, intravenous, NOW X1, 1 dose, On Tue07/14/21 at 2315, STAT Given 07/14/2021 23:30 EDT 0.5 mg HYDROmorphone (PF) (DILAUDID) 0.5 mg/0.5 mL syringe 1 dose, Starting on Tue07/14/21 at 2303, Until Tue07/14/21 at 2330 ondansetron (PF) (ZOFRAN) injection 4 mg 4 mg, intravenous, NOW X1, 1 dose, On Tue07/14/21 at 2315, STAT Given 07/14/2021 23:29 EDT 4 mg documented in this encounter Active and Recently Administered Medications Times are shown in EDT. Scheduled Medication Order 07/13/2021 07/14/2021 07/15/2021 furosemide (LASIX) injection 20 mg (COMPLETED) 20 mg, intravenous, NOW X1, 1 dose, On Tue07/14/21 at 2315, STAT 2330 (Given - Provider: Tata Colón RN) HYDROmorphone (PF) (DILAUDID) 0.5 mg/0.5 mL syringe 0.5 mg (COMPLETED) 0.5 mg, intravenous, NOW X1, 1 dose, On Tue07/14/21 at 2315, STAT 2330 (Given - Provider: Tata Colón RN) ondansetron (PF) (ZOFRAN) injection 4 mg (COMPLETED) 4 mg, intravenous, NOW X1, 1 dose, On Tue07/14/21 at 2315, STAT 2329 (Given - Provider: Tata Colón RN) spironolactone (ALDACTONE) tablet 50 mg 50 mg, oral, NOW X1, 1 dose, On Tue07/15/21 at 0100, STAT 0230 (Not Given - Provider: Tata Colón RN - Reason: Patient/family refused - Comment: Pt insisting on taking at home) documented in this encounter Orders Medications Ordered That Luc ht Not Have Been Administered Count Last Ordered Date First Ordered Date spironolactone (ALDACTONE) tablet 50 mg 1 0 07/15/2021 documented in this encounter Additional Health Concerns Infection Onset Date Last Indicated Resolved Time R/O COVID-19 07/10/2021 07/14/2021 07/14/2021 23:3 2 EDT documented as of this encounter Care Teams Jewelry Appraiser Relationship Specialty Start Date End Date Emigdio Veronica MD [address] [place] [phone] PCP - General Internal Medicine - Primary Care 05/22/20 02/21/24 documented as of this encounter
--- OUTSIDE RECORDS SUMMARY | 2024-11-22 17:13 | XMS_ITS | Encounter Summary ---
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 No / Unsure 06/29/2021 15:13 EDT documented as of this encounter Functional [...] Miscellaneous Notes * Telephone Encounter - Arlette Arboleda - 07/06/2021 1305 EDT CHT Admin called pt to get scheduled with CHJoyce GUERRERO. Currently scheduled phone consuslt CHJoyce GUERRERO apt forTuesday 07/17 1p.m. documented in this encounter Plan of Treatment Upcoming Encounters Date Type Department Care Team (Late st Contact Info) Description 01/04/2025 13:00 EST Office Visit [facility] Ophthalmology - [address] [phone] Gagandeep Rome MD [address] [place] [address], [facility] [address] [place] [phone] 02/11/2025 13:30 EDT Telemedicine [facility] Hematology & Oncology - [address] [phone] Dana Padilla MD [address] [place] [address], [facility] [address] [place] [address] documented as of this encounter Visit Diagnoses Not on filedocumented in this encounter Care Teams Gas Welder Apprentice Relationship Specialty Start Date End Date Emigdio Veronica MD [address] [place] [phone] PCP - General Internal Medicine - Primary Care 05/22/20 02/21/24 documented as of this encounter
--- OUTSIDE RECORDS SUMMARY | 2024-11-22 17:13 | XMS_ITS | Encounter Summary ---
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 Yes 07/09/2021 10:39 EDT documented as of this encounter Functional [...] Office Visit [facility] Ophthalmology - [address] [phone] Gagandeep Rome MD [address] [facility], [address] [place] [address] 02/11/2025 13:30 EDT Telemedicine [facility] Hematology & Oncology - [address] [phone] Dana Padilla MD [address] [place] [address], [facility] [address] [place] [address] documented as of this encounter Procedures Procedure Name Priority Date/Time Associated Diagnosis Comments ZZCOVID-19 TEST [facility] PCR Today 07/10/2021 10:28 EDT Pancytopenia ([facility]) COVID-19 TESTING Routine 07/10/2021 10:2 8 EDT Pancytopenia ([facility]) documented in this encounter Results * COVID-19 TEST [facility] PCR (07/10/2021 10:28 EDT) Swab ENTIRE NASOPHARYNX / Unknown Swab / Unknown 07/10/2021 10:28 EDT 07/10/2021 10:28 EDT us Starr Paige MD MICROBIOLOGY - GENERAL DEMI CARDENAS Final Result [facility] [address] [place] [address] * COVID-19 TESTING (07/10/2021 10:28 EDT) COVID-19 rt-PCR Result Negative Negative 07/11/2021 13:16 EDT [facility] Comment: This test has [...] developed and its performance characteristics determined by [facility]. It has not been cleared or approved [...] testing. This test is based on the [facility] COVID-19 Emergency Use Authorization (EUA) assay, with minor modification as defined by the FDA Performed on the [employer] Pro RT-PCR System. Performing Lab [facility] 07/11/2021 13:16 EDT [facility] Swab ENTIRE NASOPHARYNX / Unknown Swab / Unknown 07/10/2021 10:28 EDT 07/10/2021 10:28 EDT us Starr Paige MD MICROBIOLOGY - GENERAL DEMI CARDENAS Final Result [facility] [address] [place] [address] documented in this encounter Visit Diagnoses Diagnosis Pancytopenia (HCC-CMS) Other pancytopenia documented in this encounter Additional Health Concerns Infection Onset Date Last Indicated Resolved Time R/O COVID-19 07/10/2021 07/14/2021 07/14/2021 23:3 2 EDT documented as of this encounter Care Teams Shape Brick Molder Relationship Specialty Start Date End Date Emigdio Veronica MD [address] [place] [phone] PCP - General Internal Medicine - Primary Care 05/22/20 02/21/24 documented as of this encounter
--- OUTSIDE RECORDS SUMMARY | 2024-11-22 17:13 | XMS_ITS | Encounter Summary ---
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 The patient indicates understanding of these issues and agrees with the plan. No barriers. * Telephone Encounter - Emigdio Veronica MD - 07/03/2021 1430 EDT I am hesitant to make any changes to her pain regiment at this time. She just had a several day hospitalization with IV diuretics for her volume overload and has now transitioned back to oral diuretics I would want to monitor her in an outpatient setting for longer. Additionally increasing opiate pain medication in the setting of recent falls sounds extremely risky. I would advise HFU first. * Telephone Encounter - Karol Armstrong RN - 07/03/2021 1423 EDT Hospital Discharge Follow Up: Reason for admission: Fall/fluid overload Symptoms improving? yes Discharge instructions available? yes Medications Reviewed/prescriptions filled? no - N/A Support at home? yes Home health service/issues? No declined Questions about discharge instructions? yes Follow-up visit scheduled? yes Education/Plan: Hematology next week, HFU with Campuzano on 07/13 KAROL ARMSTRONG RN 07/03/2021 Patient questioning if her hydromorphone can be increased to TID prn I'll only take the third if Ireally need it. Recommendation? * Telephone Encounter - Jes Mayorga RN - 07/02/2021 1638 EDT Patient was admitted for worsening swelling in legs. Weight gain. Patient was volume over loaded. Admitted on June 29. IV diuretics . 6 1/2 liters removed. Leg pain in both legs But pain is better on discharge No dvt F/u with pcp in the next week. Not orthostatic. No Home health needed. Daughter coming to stay with her. * Telephone Encounter - Ebony Toscano - 07/02/2021 1636 EDT Johny Pack, Hoop Expander - Internal Medicine, is calling to give report for this pt. * Telephone Encounter - Xuan Jimenez - 07/02/2021 1435 EDT Patient was discharged from the hospital today and called to schedule a follow up visit with Dr. Veronica Please follow up with patient. documented in this encounter Plan of Treatment Upcoming Encounters Date Type Department Care Team (Late st Contact Info) Description 01/04/2025 13:00 EST Office Visit [facility] Ophthalmology - [address] [phone] Gagandeep Rome MD [address] [place] [address], [facility] [address] [place] [phone] 02/11/2025 13:30 EDT Telemedicine [facility] Hematology & Oncology - [address] [phone] Dana Padilla MD [address] [place] [address], [address] [place] [phone] documented as of this encounter Visit Diagnoses Not on filedocumented in this encounter Care Teams Cargo Bracer Relationship Specialty Start Date End Date Emigdio Veronica MD [address] [place] [phone] PCP - General Internal Medicine - Primary Care 05/22/20 02/21/24 documented as of this encounter
--- OUTSIDE RECORDS SUMMARY | 2024-11-22 17:13 | XMS_ITS | Encounter Summary ---
Author Organization [facility] Address [address] [place] [address] Care Team Providers Care Photo Technologist Name Role Phone Emigdio Veronica MD Primary Care Provider + Reason for Visit * Reason Comments Fluid Collection Pt to triage from [facility] c/o 28lb weight gain in less than 2 weeks (13 in last 2 days.) No hx heart failure. Unable to bear weight. Skin PWD, easy WOB. Fall 2 falls since last e vening due to dizziness + headstrike, denies LOC. * Auth/Cert Specialty Diagnoses / Procedures Referred By Contac t Referred To Contact Diagnoses Anasarca Pancytopenia (HCC-CMS) Fall, initial encounter Frequent falls Fluid overload Referral ID Status Reason Start Date Expiration Date Visits Re quested Visits Authorized [id number] 1 1 Encounter Details Date Type Department Care Team (Late st Contact Info) Description 06/29/2021 15:24 EDT - 07/02/2021 12:31 EDT Hospital Encounter [facility] Hematology & Oncology Unit [address] [place], [place] [id number] Segundo Avila MD [address] [facility], [address] [place] [address] Richie De MD [address] [place] [address] [place] [address] Van Fuentes MD [address] [phone] Milena Baca MD [address] [phone] Fall, initial encounter (Primary Dx); Anasarca; Pancytopenia (HCC-CMS); Decompensated hepatic cirrhosis (HCC-CMS) Discharge Disposition: Home or Self Care [...] 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 No / Unsure 06/29/2021 15:13 EDT documented as of this encounter Last Filed Vital Signs Vital Sign Reading Time Taken Comments Blood Pressure 95/56 07/01/2021 213 EDT Pulse 64 07/01/2021 09 EDT Temperature 36.3 ??C (97.3 ??F) 07/02/2021 0600 EDT Respiratory Rate 16 07/02/2021 06 EDT Oxygen Saturation 95% 07/02/2021599 EDT Inhaled Oxygen Concentration - - Weight 96.6 kg (212 lb 15.4 oz) 07/02/2021900 EDT Height 162.6 cm (5' 4) 06/29/20212106 EDT Body Mass Index 36.56 06/29/20212106 EDT documented in this encounter Functional Status [...] Barbara Cross RN documented in this encounter Discharge Summaries * Milena Baca MD - 07/02/2021 1013 EDT Medicine Discharge Summary Primary Care Provider: Emigdio Veronica Attending Physician: No att. providers found Admit Date: 06/29/2021 Discharge Date: 07/02/21 Disposition: Home or self care Reason for Admission: Decompesated cirrhosis with volume overload and fall Principal/Final Diagnosis:Cirrhosis and volume overload Additional Problems Managed in the Hospital Active Hospital Problems Diagnosis Date Noted ??? Moderate protein-calorie malnutrition (HCC-CMS) 07/02/2021 ??? Fluid overload 07/01/2021 ??? Frequent falls 06/29/2021 ??? Pancytopenia (HCC-CMS) 07/18/2015 Resolved Hospital Problems Diagnosis Date Noted Date Resolved ??? *Fall, initial encounter 06/29/2021 07/02/2021 ??? Anasarca 06/29/2021 07/02/2021 Principal Procedure: None Secondary Procedures: none Hospital Course: Tara Boothe is a 60 year old woman with a history of MACHADO and Hep C with cirrhosis, chronic pancytopenia, splenic and portal vein thromboses, COPD on home O2, GERD, and HUEY who presented to the [facility] for recent falls and worsening painful lower extremity swelling and weight gain over the past 2 months in the setting of changing diuretic dosing for her cirrhosis due to reduced kidney function. In the ED, her vitals were stable, with negative POCUS for ascites. Her labs showed Cr of 0.99, normal electrolytes, and pancytopenia at her baseline. She reported mildly worsened shortness of breathand an episode of lightheadedness the night previous with a near fall, but no headache, chest pain,cough,nausea, vomiting, or diarrhea. She was admitted to medicine for further workup and management. She received IV lasix 40 mg x2 with a robust output of 6.3 L in 2 days with significant improvementin lower extremity edema and abdominal fullness. Doppler was negative for DVTs and her pain was managed with her home opioid regiment. Her lower extremity pain remained, although it had improved to the point where she was able to ambulate well with a walker. Nutrition saw her and noted moderate calorie malnutrition, recommended lower sodium diet to help prevent fluid overload in the future as well as high protein. On 07/02 she was stable and appeared to be at her baseline weight, had negative orthostatics and wasdeemed safe to discharge home with a walker. She was transitioned back to her CRIBBER oral diuretics with instructions to follow up with her PCP. Her daughter was able to stay with her for a few days to help her manage the transition. #Volume overload and falls from decompensated cirrhosis - D/c on CRIBBER 50 spironolactone and 20 mg lasix - Sent with prescription for walker to help prevent falls with ambulation - Outpt management for pain control #Moderate calorie malnutrition -Low sodium and high protein diet as per nutrition Condition at Discharge: Good Clinical Issues Needing Follow-up: Leg pain Allergies Allergen Reactions ??? Morphine Anaphylaxis ??? Sulfa (Sulfonamide Antibiotics) Anaphylaxis ??? Tylenol [Acetaminophen] Other (See Comments) Contraindication with medical hx ??? Flagyl [Metronidazole] Other (See Comments) Fatigue ??? Aspirin Other (See Comments) Contraindication with medical hx ??? Injectafer [Ferric Carboxymaltose] ??? Lyrica [Pregabalin] Anxiety Insomnia ??? Reglan [Metoclopramide Hcl] Rash Immunization History Administered Date(s) Administered ??? Covid-19 mRNA Vaccine ([employer] COVID-19) PF 0.3 ml IM (12 yrs+) 04/01/2021, 05/15/2021 ??? Historical Influenza Vaccine, Unspecified 09/24/2014 ??? Influenza (split) 08/05/2016 ??? Influenza Vaccine MDCK Quad (FLUCELVAX) PF 0.5 ml IM (4 yrs+) 08/21/2019 ??? Influenza Vaccine Quad (AFLURIA) PF 0.5 ml IM (3 yrs+) 08/15/2020 ??? Pneumococcal Conj Vacc PCV13 (PREVNAR-13) IM 09/03/2019 ? ? Pneumococcal Polysaccharide (PPSV23) Vaccine (PNEUMOVAX-23) =>2YO SQ/IM 06/05/2009, 07/18/2015 ??? Shingrix (Zoster Vaccine, Recombinant) IM 09/03/2019 ? ? Td (Adult) 2 Lf Vaccine =>7yo IM 03/17/2019 ? ? Tdap Vaccine =>7YO IM 02/19/2019 Results Pending at Discharge Test results still pending from this admission None Upcoming Appointments Jul 09, 2021 8:00 Follow Up Visit with Starr Paige MD [facility] [place] Hematology & Oncology [facility] ([facility]) [address] [facility] [id number] Sep 09, 2021 10:30 Televideo Short with Starr Paige MD [facility] Hematology & Oncology [facility] ([facility]) [address] [facility] [id number] Follow-up appointments and procedures Amb Consult/Follow Up Primary Care Physician Reason for Request: Follow up hosptialization for falls in setting of volume overload Authorizing Provider: Adelaida Pack MD Discharge Handoff Communication Message was left with office or rehab facility Discharge Summary Completed By: Maira Pack MD, MPH PGY-1 07/02/2021 16:36 [id number] or Cortext ATTENDING ATTESTATION: Date of service: 07/02/21 I interviewed and examined the patient. I reviewed interval labs, events, and notes. I discussed the case with the medicine house staff team. I agree with and edited the findings and plan of care as documented in the discharge summary above. I reviewed the discharge instructions and follow-up plan with the patient. Total unit time I spent in the care of the patient on date of discharge: >30 Minutes Milena Baca MD Division of Hospital Medicine 07/03/2021 6:35 documented in this encounter Discharge Instructions * Discharge Instr - AVS First Page* Adelaida Pack MD - 07/02/2021 11:38 EDT You were admitted for fluid overload from your cirrhosis. We have restarted you on your home mediations and put in a referral for follow up with your PCP Dr. Veronica. Medications -Take 20 mg lasix and 50 mg spironolactone daily - Continue your inhalers as you were before hospitalization - Continue your hydromorphone for pain as you were before hospitalizton Follow Ups: -We have put in a referral for follow up with Dr. Veronica. Please see him in the next 1-2 weeks to discuss your diuretics and leg pain. documented in this encounter Medications at Time [...] Max: 4 mg 56 Tablet 06/22/2021 1 levothyroxine (SYNTHROID) 25 mcg tablet Take [...] inhaler inhalerIndicatio ns:COPD with asthma ([facility]) Inhale 2 Puffs as directed daily. 1 Inhaler 11 06/20/2020 1 traZODone (DESYREL) 100 mg tablet Take 2 Tabs by mouth at bedtime. 180 Tab 1 04/10/2021 1 documented as of this encounter Discharge Disposition Disposition Code Departure Means Destination Home or Self Detention documented in this encounter Progress Notes * Angelita Fountain RN - 07/02/2021 1155 EDT Focus: Discharge D: Pt noted with discharge orders to home. A: Reviewed discharge paperwork and prescriptions with patient and patient's daughter. IV D/C???d Belongings collected and sent home with patient. R: Pt verbalized understanding of discharge paperwork and denied further questions. Pt left floor via WC. ANGELITA FOUNTAIN RN 07/02/2021 11:56 * Dejah Brice - 07/01/2021 1400 EDT Spiritual Care Department Neuropsychologist Note Re: Tara Boothe : 1960 Attempted visit with Tara per referral. She was asleep. Will attempt to visit tomorrow, time permitting. DEJAH BRICE 07/02/2021 14:07 * Katelyn Ambriz, PT - 07/01/2021 1124 EDT [facility] Rehabilitation Therapy Acute Therapies [facility] Physical Therapy Encounter Note Date of Service: 07/01/2021 Subjective/Objective Subjective My feet still hurt but may be a little better today Objective Intervention completed today: Time: 10:45 Total treatment time: 25 minutes. Timed code treatment minutes: 25 Therapeutic activity Patient found sitting in recliner chair agreeable to PT Patient stable on patient Patient continues to have edema and pain of ankles Sit to stand moderate but independent Patient ambulated 300 feet with supervision assist with use of rolling walker Patient instructed in below exercises while sitting in chair Ankle pumps Long arc quads Hip flexion Patient performed 10 reps bilateral lower extremities with verbal cues to go slowly and in control Patient/Family Education: Topic: Assistive device/technique Bed mobility Discharge planning Exercise Gait Role of therapy Safety Transfers Learner: patient Method: verbal Barriers to Learning: none noted Outcome: needs practice, verbalized understanding and returned demonstration Team Communication: Informed RN of patient's performance Assessment/Plan Assessment Patient continues to be limited by pain related to her edema however improved today compared to yesterday although she continues not to be at her baseline and recommend 1-2 more days. Patient may need a rolling walker for home if she continues to have pain Plan Continue per plan of care Recommended Discharge Destination: Home alone Recommended Discharge Services: To be determined Recommended Equipment Needs: Rolling walker Other recommendations: No other consults recommended at this time Pager: [phone] Katelyn Ambriz, PT 07/01/2021 11:25 * Milena Baca MD - 07/01/2021 0823 EDT Medicine Progress Note Service Date: 07/01/2021 Admit Date: 06/29/2021 15:24 Reason for Admission: 60 y.o. female admitted with a chief complaint of falls and now with a principal diagnosis of volume overload. 24 Hour Events: - Admitted overnight Subjective/Objective Subjective Mrs. Boothe states that she has pain in her stomach, lower abdomen after getting striaght cathed earlier. Her calves are also painful bilaterally. Has a mild cough which is slightly worse than her baseline with COPD which started after she reduced her dose of diuretics. Still feels volume up. She denies headache, confusion, chest pain, nausea, vomiting, or diarrhea. Review of Systems A ten point review of systems was performed and was negative except for pertinent positives noted in the HPI Objective Vital Signs Temp: [35.6 ??C (96.1 ??F)-36.5 ??C (97.7 ??F)] , Heart Rate: --, Resp: [16-20] , BP: (85-98)/(46-60) , SpO2: [90 %-93 %] Physical Exam General: Well nourished appearing female in mild distress HEENT: PERRLA, No conjunctival pallor, MMM, no cervical, supraclavicular, or submandibular lymphadenopathy. CV: RRR with no extra heart sounds Resp: Wheezing bilaterally, normal work of breathing Abdominal: Soft, tender over epigastric and suprapubic areas, no guarding, non-distended Lower extremities: significant pitting edema to bilateral lower extremities with tenderness, DP andPT pulses present Skin: No rashes or skin changes Neuro: AOx3, moves all limbs spontaneously Intake/Output Summary (Last 24 hours) at 07/01/2021 0823 Last data filed at 07/01/2021 0618 Gross per 24 hour Intake 250 ml Output 2850 ml Net -2600 ml Is PICC or central line present? No, PICC/Central line not present. Medications Reviewed. Labs Reviewed. Imaging Reviewed. US LOWER VENOUS DUPLEX (DVT) BILATERAL 06/30/21 IMPRESSION: ??? No evidence of deep or superficial venous thrombosis in the right lower extremity. ??? No evidence of deep or superficial venous thrombosis in the left lower extremity. CT HEAD WO CONTRAST 06/29/21 IMPRESSION No acute intracranial hemorrhage, infarct or calvarial fractures. XR CHEST 2 VIEWS 06/29/2021 IMPRESSION 1. Linear opacities in the bilateral lower lungs, likely atelectasis. 2. Chronic small airways disease as visualized on recent CT of the chest June 13, 2021. 3. No pleural effusions bilaterally. Cardiology: ECG 06/29/21 - Sinus tachycardia with ST segment depression in V4. Assessment/Plan Assessment Tara Boothe is a 60 y.o. female with a PMHx significant for PMHx of MACHADO, cirrhosis (on furosemide and spironolactone), COPD (on 2 L of home oxygen at night), pancytopenia, splenic and portal vein thromboses (not on anticoagulation),??hepatitis C, nephrolithiasis with prior ureteral stent, and o besity, who presented to for a fall on 06/29/21 due to leg pain in the setting of worsening lower extremity edema and holding CRIBBER diuretics. Has had significant diuresis since admission with room to continue.Plan for diuresis until back at baseline dry weight and then will restart home regimen. Plan Falls/Lower extremity edema 2/2 volume overload in setting of cirrhosis Likely exacerbated by holding of CRIBBER diuretics due to labile renal function. Expressed lack of weakness and dizziness and symptoms more consistent with pain while ambulating. Plan for diuresis. PT feels pain is limiting factor for ambulation. - s/p furosemide 40 mg IV day 2 - Restart CRIBBER furosemide 20 mg PO tomorrow - Restart CRIBBER spironolactone 50 mg PO daily -daily BMP Cirrhosis No significant ascities. - receiving IV lasix 40 mg, will switch to CRIBBER when closer to dry weight - Restart CRIBBER spironolactone 50 mg PO daily Panytopenia Seen by Dr. Paige which suspects symptoms are due to cirrhosis and possible splenic sequestration. Notified hematology of admission. - Hold prophylactic anticoagulation due to platelets < 50 -Daily CBC Chronic non-obstructive portal vein thrombosis Unchanged from CT on 06/13/21. Seen by Dr. Paige which was contacted after admission. - Continue to hold anticoagulation Non-hospital issues: #COPD -Continue CRIBBER inhalers, home O2 VTE Prophylaxis Ambulate Discharge Plan Home or self care Consults None Maira Pack MD, MPH PGY-1 07/01/2021 8:23 [id number] or Cortext ATTENDING ATTESTATION I interviewed and examined the patient on 07/01/21. I have personally reviewed interim records. The case was discussed with the Internal Medicine House Staff team. I agree with findings and plan of care as documented by the resident. Please see my additions in blue. Milena Baca MD Internal Medicine Hospitalist 07/02/2021 6:52 * Mielna Baca MD - 06/30/2021 7821 EDT Medicine Progress Note Service Date: 06/30/2021 Admit Date: 06/29/2021 15:24 Reason for Admission: 60 y.o. female admitted with a chief complaint of falls and now with a principal diagnosis of volume overload. 24 Hour Events: - Admitted overnight Subjective/Objective Subjective Discussed initial presentation this AM. Mrs. Boothe states that she has felt weak legs over the lastseveral days which she feels is due to pain. She denies a sensation of dizziness, tunnel vision, palpitations, chest pain, or chest pressure. Review of Systems A ten point review of systems was performed and was negative except for pertinent positives noted in the HPI Objective Vital Signs Temp: [35.6 ??C (96.1 ??F)-36.5 ??C (97.7 ??F)] , Heart Rate: [71 BPM-73 BPM] , Resp: [16-20] , BP:(85-146)/(46-114) , SpO2: [90 %-93 %] Physical Exam General: Well nourished appearing female HEENT: PERRLA, No conjunctival pallor, MMM, no cervical, supraclavicular, or submandibular lymphadenopathy. CV: RRR with no extra heart sounds Resp: CTAB, normal work of breathing Abdominal: Soft, non-tender, and non-distended Lower extremities: 3+ pitting edema to bilateral lower extremities, DP and PT pulses present Skin: No rashes or skin changes Neuro: AOx3, moves all limbs spontaneously Intake/Output Summary (Last 24 hours) at 06/30/2021 2253 Last data filed at 06/30/2021 2103 Gross per 24 hour Intake 250 ml Output 2450 ml Net -2200 ml Is PICC or central line present? No, PICC/Central line not present. Medications Reviewed. Labs Reviewed. Imaging Reviewed. US LOWER VENOUS DUPLEX (DVT) BILATERAL 06/30/21 IMPRESSION: ??? No evidence of deep or superficial venous thrombosis in the right lower extremity. ??? No evidence of deep or superficial venous thrombosis in the left lower extremity. CT HEAD WO CONTRAST 06/29/21 IMPRESSION No acute intracranial hemorrhage, infarct or calvarial fractures. XR CHEST 2 VIEWS 06/29/2021 IMPRESSION 1. Linear opacities in the bilateral lower lungs, likely atelectasis. 2. Chronic small airways disease as visualized on recent CT of the chest June 13, 2021. 3. No pleural effusions bilaterally. Cardiology: ECG 06/29/21 - Sinus tachycardia with ST segment depression in V4. Assessment/Plan Assessment Tara Boothe is a 60 y.o. female with a PMHx significant for PMHx of MACHADO, cirrhosis (on furosemide and spironolactone), COPD (on 2 L of home oxygen at night), pancytopenia, splenic and portal vein thromboses (not on anticoagulation),??hepatitis C, nephrolithiasis with prior ureteral stent, and o besity, who presented to for a fall on 06/29/21 due to leg pain in the setting of worsening lower extremity edema and holding CRIBBER diuretics. Plan for diuresis and starting home regimen. Plan Falls/Lower extremity edema 2/2 volume overload in setting of cirrhosis Likely exacerbated by holding of CRIBBER diuretics due to liable renal function. Expressed lack of weakness and dizziness and symptoms more consistent with pain while ambulating. Plan for diuresis. Assessed by PT which feels like Mrs. Boothe is at baseline and only limited by pain. Lower extremity doppler not consistent with DVT. - s/p furosemide 40 mg IV - Restart CRIBBER furosemide 20 mg PO - Restart CRIBBER spironolactone 50 mg PO daily Cirrhosis POCUS in ED not showing significant ascities. - Restart CRIBBER furosemide 20 mg PO - Restart CRIBBER spironolactone 50 mg PO daily Panytopenia Seen by Dr. Paige which suspects symptoms are due to cirrhosis and possible splenic sequestration. Notified hematology of admission. - Hold prophylactic anticoagulation due to platelets < 50 Chronic non-obstructive portal vein thrombosis Unchanged from CT on 06/13/21. Seen by Dr. Paige which was contacted after admission. - Continue to hold anticoagulation VTE Prophylaxis Ambulate Discharge Plan Home or self care Consults None CANDIDO GÓMEZ MD 06/30/2021 22:51 ATTENDING ATTESTATION I interviewed and examined the patient on 06/30/21 I have personally reviewed interim records. The case was discussed with the Internal Medicine House Staff team. I agree with findings and plan of care as documented by the resident. Please see my additions in blue. Milena Baca MD Internal Medicine Hospitalist 07/01/2021 8:02 * Rekha Sanderson - 06/30/2021 1020 EDT Nutrition Assessment Note: Initial Visit Patient Name: Tara Boothe Admission Date: 06/29/2021 Admission Dx: Fall, initial encounter Reason for Visit: Identified at risk due to poor appetite with nausea/vomiting CRIBBER BACKGROUND DATA Clinical Summary: Tara Boothe is a 60 y.o. female with a PMHx significant for PMHx of MACHADO, cirrhosis (on furosemide and spironolactone), COPD (on 2 L of home oxygen at night), pancytopenia, splenic and portal vein thromboses (not on anticoagulation),??hepatitis C, nephrolithiasis with prior ureteral stent, and o besity, who presented to the ED this evening for??recent falls??and recent worsening painful lower extremity swelling, now admitted for observation given her recent falls, pancytopenia, increasing LEedema, nausea, and recent cessation diuretics. She is currently afebrile and hemodynamically stable. Past Medical History: Diagnosis Date ??? Anemia ??? Anxiety ??? Asthma 12/10/2020 currently not taking - mild persistent - see dr. Veronica 11/20/2021 ??? Bleeding disorder (HCC-CMS) ??? Bursitis right shoulder ??? C. difficile colitis 07/25/2015 Hospitalized after kidney stone removal ??? Chronic ITP (idiopathic thrombocytopenia) (HCC-CMS) 12/10/2020 - see 11/20/2020 Dr. Veronica H&P, (managed by Starr Paige MD) ??? Chronic kidney disease slow to come back ??? Cirrhosis of liver (HCC-CMS) ??? Clotting disorder (HCC-CMS) ??? Community acquired pneumonia january 2021 ??? COPD exacerbation (HCC-CMS) 04/26/2020 ??? Depression ??? Drug-seeking behavior Per Dr Amelia Tijerina and notes from [facility] patient misconstrued information to several providers about multiple concurrent opiate prescriptions ??? Environmental allergies ??? Exercise involving walking takes a walk daily for 20 minutes ??? GERD (gastroesophageal reflux disease) 12/10/2020 does not wake pt at night ??? Heartburn ??? Hemorrhagic disorder (HCC-CMS) ??? History of general anesthesia ??? History of kidney stones ??? History of nephrolithiasis ??? History of peripheral edema 12/10/2020 - bilateral leg edema - see 11/20/2020 Dr. Benoit H&P ??? Hypersplenism syndrome ??? Hypersplenism syndrome ??? Hypotension 70-80/30-40 usually ??? Hypothyroidism ??? Joint replaced 199912/10/2020 nya knees ??? MACHADO (nonalcoholic steatohepatitis) ??? Oxygen dependent 12/10/2020 HS ??? Pancytopenia (HCC-CMS) ??? Rheumatoid arthritis ??? Shortness of breath ??? Sleep apnea ??? Thrombocytopenia (HCC-CMS) 12/10/2020 - see 11/20/2020 Dr. Veronica H&P, (managed by Starr Paige MD) ??? Thyroid disease Allergies on file: NKFA Subjective: Pt reports poor appetite/ intake CRIBBER, consuming only jello, pudding, and soups and is unable to specify the length of time. She states she has been feeling poorly for quite a while and has been in daily communication with her PCP office regarding blood pressure and daily weights to monitor fluid gain. She reports UBW of 170 lbs, then gaining fluid up to 220 lbs, which has now been going down since admission. She was able to have an omelet for breakfast today -which was her first real meal in a while- and felt a little nauseous after, but did not experience vomiting. She is finding her currentlow sodium diet order challenging. Current Nutrition Orders: Low sodium Physical Findings: Urine Output: net -2500mL since admission per flowsheets Digestive Systems: Last BM yesterday per pt Skin: intact Edema: +2 pitting to BLE Nutrition Focused Physical Exam: Subcutaneous Fat: Orbital Region: WNL Buccal Region: WNL Upper Arm Region: diminished subcutaneous fat (mild-moderate loss) Midaxillary Line: unable to assess Muscle: [place] region: slight depression (mild-moderate loss) Clavicle Region: WNL Shoulder and Acromion Region: WNL Scapular Region: WNL Hand Region: slight depression (mild-moderate loss) Patellar/Thigh Region: unable to assess Calf Region: unable to assess -pt c/o pain in calves Anthropometrics: Height: 162.6 cm (64) Wt Readings from Last 6 Encounters: 06/29/21 100.3 kg (221 lb 1.9 oz) 06/12/21 94.2 kg (207 lb 9.6 oz) 05/28/21 93 kg (205 lb) 05/14/21 88.7 kg (195 lb 9.6 oz) 05/08/21 79.4 kg (175 lb) 05/06/21 91.8 kg (202 lb 4.8 oz) BMI: Body mass index is 37.96 kg/m??. (obesity class II) Weight Change: wt gain noted (edema present) Pertinent Medications: Current Facility-Administered Medications Medication Route Frequency ??? albuterol (ACCUNEB) nebulizer solution 2.5 mg nebulization Q4H PRN ??? albuterol inhaler 90-180 mcg inhalation Q4H PRN ??? HYDROmorphone (DILAUDID) tablet 2 mg oral Q12H PRN ??? levothyroxine (SYNTHROID) tablet 25 mcg oral DAILY BEFORE BREAKFAST ??? lidocaine (PF) 10 mg/mL (1 %) injection 2 mg intradermal PRN ??? mometasone-formoterol (DULERA) 200-5 mcg/actuation inhaler 2 Puff inhalation BID ??? nicotine (NICODERM CQ) 14 mg/24 hr patch 1 Patch transdermal DAILY ??? ondansetron (ZOFRAN-ODT) disintegrating tablet 4 mg oral Q12H PRN ??? pantoprazole (PROTONIX) tablet 40 mg oral BID ??? sertraline (ZOLOFT) tablet 50 mg oral DAILY ??? traZODone (DESYREL) tablet 200 mg oral QHS Pertinent Labs: Electrolytes WNL, Cr elevated Estimated Nutrition Intake: Est meeting <50% of needs for >5 days CRIBBER ASSESSMENT: Patient presents on admission with moderate malnutrition in the context of acute illness or injury related to nausea/vomiting as evidenced by meeting <50% est needs for >5 days, mild muscle losses, and edema possibly masking weight loss.. Pt with poor appetite CRIBBER that is now improving with some diuresis. Suspect fluid overload may havebeen causing difficulty eating and reduced appetite. Will continue to monitor intake/ weight trend and may recommend to liberalize diet or add supplements if intake is low. Reviewed pt menu with her and pointed out lower sodium options, gray good protein options, that would be available under current diet order. Encouraged including good protein choices each meal to promote healing and praised her for ordering a high protein breakfast today. Nutrition Risk Level: Moderate (2) MEDICAL NUTRITION THERAPY PLAN: - Continue diet as ordered - RD to monitor intake, weight trend, labs, skin, and GI system REKHA SANDERSON RD, CD (Call PAS or use Intelliweb to page RD covering this unit) * Shania Willis - 06/30/2021 0953 EDT ADMISSION REASON: 60 y.o. female with a PMHx significant for PMHx of MACHADO, cirrhosis (on furosemide and spironolactone), COPD (on 2 L of home oxygen at night), pancytopenia, splenic and portal vein thromboses (not on a nticoagulation),??hepatitis C, nephrolithiasis with prior ureteral stent, and obesity, who presented to the ED this evening for??recent falls??and recent worsening painful lower extremity swelling, now admitted for observation given her recent falls, pancytopenia, increasing LEedema, nausea, and recent cessation diuretics. CM copied the recent IA on 04/24/2021 Initial Case Management/Social Work Assessment and Discharge Plan/Readmission Risk Assessment ?? REASON FOR ADMISSION: Portal vein thrombosis Patient understands reason for admission: Yes ?? PATIENT INFO VERIFIED: ?? PCP: MD Emigdio Veronica Contact Info: Son Bobby Rojas ([phone]) Address: [facility] ?? Type of housing (single family, condo, apartment, long term, single room occupancy, [facility] funded hotel room, group long term) - Shared home Who does the patient live with? Friends/ roommates Does the patient have access to their own bedroom/bathroom/kitchen - or is it shared with others? Shared living space ? LIVING ARRANGEMENTS AND ACCESSIBILITY ISSUES: Living Arrangements: Friends, Apartment Levels: 2 Stairs to enter: 3 Handicap access: Railings into home, Railings to upstairs, Railings to downstairs Bathroom located on bedroom level?: Yes ?? What in home social supports are available to the patient? Friends / neighbors, Family member(s) Is 13/06 care available? NA ?? ADVANCED DIRECTIVES, POA &/or COLST IN PLACE: Healthcare Directive: No, patient does not have advance directive for healthcare treatment Copy in Chart: Yes, previous copy on file @ [facility] Information Provided on Healthcare Directives: No Information on Healthcare Directives Requested: No DIRECTIVES FOR FINANCES: Directive For Finances: No ?? TRANSPORTATION: Patient expects to be discharged to: Home ?? CULTURAL, HOLINESS and/or LANGUAGE factors affecting health care/discharge planning: Spiritual/Cultural Requests: None Language/Literacy Needs Do you need us to provide any communication aids or devices?: No ?? Insurance Information: Medical Insurance: Yes Type of insurance: Medicare, Medicaid Medicare type: A, B Medicaid Type: Community Referred to patient financial services: No ?? Nutrition: Regular Diet ?? (CRIBBER - low risk assessment in regards to food insecurity) ?? DISCHARGE RISK ASSESSMENT: Diagnosis of COPD;Repeat hospitalizations/ED visits Total # selected above: Score of 2 - 4: This patient is at MODERATE RISK for re-hospitalization ?? Tentative plan to address the risk of re-hospitalization for those at HIGH MODERATE RISK: Bring risk factors to attention of team to be addressed ?? RAPT TOOL: Age: 50-65 Gender: Female Ambulation distance: 2 or more blocks (600ft) Gait device: None Community Services: Home health, MOW, SASH-none of one time a week Will you live with someone who will care for you?: Yes RAPT Tool Score: 11 Patient expects to be discharged to: Home ?? SBIRT: SASQ (Single Alcohol Screening Question) How many times in the past year have you had 4 or more drinks in a single day?: Never How many times in the past year have you used an illegal drug or used a prescription medication fornon-medical reasons?: Never Intervention in place/initiated?: No, not indicated ?? FUNCTIONAL STATUS: Assistive Device: None ?? COMMUNITY RESOURCES/SUPPORTS: Primary Care Provider: Emigdio Veronica PCP Verified: Specialists: Other(hematology, urology) Type of Home Health Services: None DME Provider: [facility] Pharmacy: [facility]/pharm[facility] #[id number] - [place], [place] - [address] [facility] [id number] ?? [id number] - [place], [place] - [address] [place] [address] ?? Home Health: No current services Other: N/a ?? POST HOSPITAL TRANSITION PLAN: Presented to [facility] 04/22/2021 with c/o acute RUQ abdominal pain radiating to back that increased x2-3days. Also c/o nausea/ dry heaves/ diarrhea and increased SOB. Patient has experienced increased BLE edema for past year with discoloration/ decreased sensation of bilat feet Admitted for management of acute/ chronic portal vein thrombosis with heparin gtt initiated. Is followed by hematology outpatient and service consulted for current admission. ?? States last hospitalization was in 02/2021 @ [facility] for PNA. ?? PMH/ Anxiety/ depression, MACHADO cirrhosis, PVT, hypersplenism, pancytopenia, hypothyroid, HUEY, COPD (Patient on 2L supplemental home O2 at night - Vendor is [employer]) Patient denies current tobacco or alcohol use. ?? Has had One Pfizer Covid Vaccine to date. Was scheduled for second Vaccine 04/22 on day of current admission. ?? A&Ox3 and independent with all A/Iadl's at baseline. Does not require use of any assistive devices for mobility and is not currently connected with any community support services. ?? Patient resides in [place] and rents a room from friends/ neighbors. She currently does not own vehicle although she has support from friends/ family to assist with transportation to appointments/ errands etc. ?? Son Bobby resides in [facility] and is listed as an emergency contact ([phone]) along with her stepdaughter Samy ([phone]). Daughter Dolores resides in [facility]. ?? Patient anticipating discharge to home once medically cleared without any additional needs/ support. May require assist with arranging transportation to home. CM will continue to follow throughout hospitalization. /Valery pg [phone] ?? EVA POND RN 04/24/2021 8:01 * FairviewKatelyn Vallejo, PT - 06/30/2021 0949 EDT [facility] Physical Therapy Initial Evaluation Note Date of Service: 06/30/2021 Reason for Referral: Evaluate and treat Precautions: Activity as Tolerated SUBJECTIVE: I usually can walk all over, but my feet hurt so bad they are so swollen Pain: Location: B foot/ankle Intensity: 8/10 (at present), 5/10 (at best), 10/10 (at worst) Frequency: constant Quality: sore Aggravating factors: Weight bearing Alleviating factors: rest OBJECTIVE: Patient Profile: Patient is a 60 y.o. female admitted on 06/29/2021 secondary to Anasarca [R60.1] Pancytopenia (HCC-CMS) [D61.818] Fall, initial encounter [W19.XXXA] Frequent falls [R29.6] The patient lives at [address] [place] [id number] Per note Tara Boothe??is a 60 y.o.??female??with a PMHx significant for ??PMHx of MACHADO, cirrhosis (on furosemide and spironolactone), COPD??(on 2 L of home oxygen at night), pancytopenia,??splenic and portal vein thromboses (not on anticoagulation),??hepatitis C,??nephrolithiasis with prior ureteral stent, and obesity,??who presented??to for a fall on 06/29/21 due to leg pain in the setting of worseninglower extremity edema and holding CRIBBER diuretics. Plan for diuresis and starting home regimen. ?? Home environment Lives: alone Caregiver Support: Part-time assist Equipment Available: None Home Environment: apartment Home Layout: One story. Entry stairs: No stairs Prior Level of Function: Independent Services prior to admission: None Work/Leisure: Disabled Medical/Surgical History: Current: Patient Active Problem [...] disease) (HCC-CMS) ??? Portal vein thrombosis ??? Fall, initial encounter ??? Anasarca ??? Frequent falls Past: Past Medical History: Diagnosis Date ??? Anemia ??? Anxiety ??? Asthma 12/10/2020 currently not taking - mild persistent - see dr. Veronica 11/20/2021 ??? Bleeding disorder (HCC-CMS) ??? Bursitis right shoulder ??? C. difficile colitis 07/25/2015 Hospitalized after kidney stone removal ??? Chronic ITP (idiopathic thrombocytopenia) (HCC-CMS) 12/10/2020 - see 11/20/2020 Dr. Veronica H&P, (managed by Starr Paige MD) ??? Chronic kidney disease slow to come back ??? Cirrhosis of liver (HCC-CMS) ??? Clotting disorder (HCC-CMS) ??? Community acquired pneumonia january 2021 ??? COPD exacerbation (HCC-CMS) 04/26/2020 ??? Depression ??? Drug-seeking behavior Per Dr Amelia Tijerina and notes from [facility] patient misconstrued information to several providers about multiple concurrent opiate prescriptions ??? Environmental allergies ??? Exercise involving walking takes a walk daily for 20 minutes ??? GERD (gastroesophageal reflux disease) 12/10/2020 does not wake pt at night ??? Heartburn ??? Hemorrhagic disorder (HCC-CMS) ??? History of general anesthesia ??? History of kidney stones ??? History of nephrolithiasis ??? History of peripheral edema 12/10/2020 - bilateral leg edema - see 11/20/2020 Dr. Cy Coreas&P ??? Hypersplenism syndrome ??? Hypersplenism syndrome ??? Hypotension 70-80/30-40 usually ??? Hypothyroidism ??? Joint replaced 199912/10/2020 nya knees ??? MACHADO (nonalcoholic steatohepatitis) ??? Oxygen dependent 12/10/2020 HS ??? Pancytopenia (HCC-CMS) ??? Rheumatoid arthritis ??? Shortness of breath ??? Sleep apnea ??? Thrombocytopenia (HCC-CMS) 12/10/2020 - see 11/20/2020 Dr. Glenys Denton, [...] TONSILLECTOMY ??? WRIST SURGERY Right after fracture Medications: Medications reviewed Arousal, Attention, and Cognition: Orientation: Alert Oriented to person, place, and time Cardiopulmonary: Vital Signs: Stable per flow Integumentary/Anthropometric Characteristics: Palpation/Observation: Edema: pitting B foot/ankle up to knees Posture: WNL, Range of Motion and Joint Integrity: Active Range of Motion: Within normal limits Upper Quarter: Left Upper Extremity: Right Upper Extremity: Cervical Spine: Lower Quarter: Left Lower Extremity: Right Lower Extremity: Lumbar Spine: Muscle Performance: Strength: Manual muscle test completed in: supine with head of bed up 30 degrees All below grossly 5/5 Upper Quarter: Left Upper Extremity: Right Upper Extremity: Cervical Spine: Lower Quarter: Left Lower Extremity: Right Lower Extremity: Lumbar Spine: Sensation, Reflexes, and Nerve Integrity: Light Touch Sensation: Upper Quarter: intact Lower Quarter: intact Neuromotor Function/Development: No problems noted Balance, Locomotion, and Gait: Balance: Balance deficits observed: Sitting Balance Static: Able to sit at edge of bed with supervision Dynamic: NE Standing balance Static: Able to stand with supervision with rolling walker Dynamic: NE Locomotion: Not evaluated as wheelchair mobility does not apply to this patient. Gait: Assistive device/distance/assist/deviations: Patient able to ambulate 70 feet with supervision assist of one, with slow, shuffling gait pattern, verbal cues for energy conservation/pacing Self-Care, Home Management, Work, and Leisure: Mobility evaluation as follows: All below with supervision assist and verbal cues for sequencing/energy conservation/pacing, unless specified. Rolling: Supine to sit: Sit to supine: Sit to stand: Stand to sit: Bed to chair: Chair to bed: Informed Consent: The patient consented to the physical therapy evaluation. The patient agrees to and understands the physical therapy treatment plan and goals. Interventions Completed Today: Physical Therapy today at: 9:00 Total treatment time: 25 minutes. Timed code treatment minutes: 10 Intervention included: Therapeutic activities: Patient instructed in deep breathing, pacing and energy conservation Patient instructed in bed mobility, hand placement, and logroll Patient instructed in sit to stand hand placement, and to get momentum and weight forward over toes Patient instructed in rolling walker sequencing and pacing, and to stand up straight for proper posture and breathing Patient instructed in generalized there-ex, ankle pumps, long arc quad, hip flexion Patient/Family Education: Topic: Activity pacing/Energy conservation Assistive device/technique Balance Bed mobility Breathing exercises Discharge planning Equipment use Exercise Gait Role of therapy Safety Transfers Learner: patient Method: verbal/Demonstration Barriers to Learning: none noted Outcome: needs practice, verbalized understanding and returned demonstration Team Communication: informed Team of patients performance ASSESSMENT: Physical Therapy Diagnosis: Patient presents with decreased functional mobility secondary to impairments of: pain and generalized weakness related to her principal diagnosis of volume overload Physical Therapy Prognosis: Patient seen today for PT evaluation. Patient is below her baseline level of function secondary to pitting edema and pain of her B feet/ankles, not ready for discharge home today. Anticipate once heredema improves she will be ready for discharge home. Full note to follow, will continue to follow in this setting. ?? Short-Term Goals: n/a ?? n/a Long-Term Goals: 7-10 days Pt will perform bed mobility with independent Pt will perform sit to stand with mod independent Pt will ambulate mod independent 100 feet PLAN: Treatment/Intervention: Physical therapy will be provided by physical therapist and/or physical therapist sourcing assistant when medically appropriate. Frequency: daily 2-3 times per week as determined by the patient's medical stability, tolerance to activity and progression of functional activities Intensity: 30-60 minutes per session Duration: During hospitalization Interventions may include:Therapeutic exercises, Therapeutic activities and Gait training Patient/family education: Discharge planning, Recommendations, Role of physical therapy/rehabilitation, Safety, energy conservation Further Data: Recommended Discharge Destination: Home alone Recommended Discharge Services: To be determined Recommended Equipment Needs: Rolling walker Other recommendations: No other consults recommended at this time Pager: [phone] Katelyn Ambriz, PT 06/30/2021 9:50 * Katelyn Ambriz, PT - 06/30/2021 0947 EDT [facility] Rehabilitation Therapy Acute Therapy [facility] [place] [facility] Contact Note Date of Service: 06/30/2021 Patient seen today for PT evaluation. Patient is below her baseline level of function secondary to pitting edema and pain of her B feet/ankles, not ready for discharge home today. Anticipate once heredema improves she will be ready for discharge home. Full note to follow, will continue to follow in this setting. Katelyn Ambriz, PT 06/30/2021 9:47 * Herbert Paiz, RT - 06/29/2021 1931 EDT Images from the original note were not included. Respiratory Consult/Progress Note Indications for Respiratory therapy: COPD Data Vitals: Heart Rate: 72 BPM, Resp: 20, SpO2: 94 % FIO2/O2 Device: , , O2 Device: None, RT Orders: pending Protocol Scoring: Bronchodilator/Inhalation Therapy Frequency Bronchodialator - Clinical Indications: History of COPD Breath Sounds: Faint wheezing, decreased throughout Response: No change / no treatment Pulse: <100 Resp Rate: 18-25 SOB: With exertion Total Score: 4 Comment:: PRN Airway Clearance Therapy Frequency Airway Clearance - [...] baseline Total: 1 Comment: not indicated Action/Events Respiratory events; Patient presents to the ED with shortness of breath. Ascultation reveals expiratory wheezes in the upper airway. Patient was given a duoneb with reported improvement in her shortness of breath. Expiratory wheezes in the upper airway remain. Patient has a diagnosis of COPD and takes symbicort daily, albuterol MDI at night and PRN. MDI's toRN. Patient uses's 2 L/M O2 at night. No use of NIV. RT ELBA 06/29/21 documented in this encounter H&P Notes * Van Fuentes MD - 06/29/20210 EDT Medicine Admission History & Physical Service Date: 06/29/2021 Admit Date: 06/29/21 Primary Care Provider: Emigdio Veronica Chief Complaint: Leg swelling and recent falls HPI Tara Boothe is a 60 y.o. female with a PMHx of MACHADO, cirrhosis (on furosemide and spironolactone), GERD, COPD and HUEY (on 2 L of home oxygen at night), pancytopenia, splenic and portal vein thromboses (not on anticoagulation), hepatitis C, nephrolithiasis with prior ureteral stent, and Class IIobesity, who presented to the ED this evening for recent falls and recent worsening painful lower extremity swelling. Patient states her LE swelling has been going on since May 2020 off and on,and it improved in the past with her home Lasix and Spironolactone, which were recently held due to decreased kidney function for ~2 weeks and 1 month, respectively, but then re- started today. She noted worsening LE swelling over this time period and states she has gained >20 lbs in the last 2 weeks and the swelling has become more painful. She also notes increasing abdominal size band chronicdiffuse abdominal pain, that is more pronounced in the epigastrium recently. She reports chills anddiaphoresis off and on over the last few days. Patient states she fell last night while at home, as she felt lightheaded briefly when going to geta cup of water out of the microwave to make tea. She fell forward onto her counter and braced her fall with her left arm and never hit the ground, nor hit her head. She states she bruised her arm andit is painful, but has not lost any function. Notably, she was previously anticoagulated with apixaban and more recently LMWH at home. She describes using a half dose which was prescribed by her molding fitter due to her low platelets in the past, but says she recently stopped using the LMWH, however the reason for this is unclear. She denies any other recent injuries or bleeding. States her po intake has not been good over the last few days due to nausea. Describes 2 episodes of clear/yellow-brown emesis today, but none since entering the hospital. Last took her lasix this AM which she thinkshe kept down. Reported taking spironolactone later, which was followed by emesis. Says that she has been a bit more short of breath recently which is associated w/ exertion but no increasing orthopnea, though she does sleep on 3-4 pillows at home. Also notes the tips of the bottom of her toes are numb. Denies: chest pain, PND, fever, flank pain, dysuria, hematuria, hematemesis, hematochezia, headache, confusion, vision changes, erythema/warmth of LEs, open wounds. She follows with GI and hematology outpatient. She is due to see heme later this month, per her report. Of note, patient reports significant amount of stress at home lately, as one of her landlords is bipolar and has had some episodes of em which has led to her constantly knocking on the patient's door at night, keeping her awake. Additionally, she helps her other landlord frequently, as he is in his 80s and has significant difficulty ambulating. She denies any alcohol or recreational drug use. She reports smoking 0.5 ppd x ~40 years but recently cutting back to 1-2 cigarettes/day. Has 3 children - 1 son nearby, and 12 grandchildren. Review of Systems A complete 10 point ROS was performed and pertinent positive and negative findings listed in HPI, otherwise negative. Past Medical History: Diagnosis Date ??? Anemia ??? Anxiety ??? Asthma 12/10/2020 currently not taking - mild persistent - see dr. Veronica 11/20/2021 ??? Bleeding disorder ([facility]) ??? Bursitis right shoulder ??? C. difficile colitis 07/25/2015 Hospitalized after kidney stone removal ??? Chronic ITP (idiopathic thrombocytopenia) ([facility]) 12/10/2020 - see 11/20/2020 Dr. Glenys Denton, (managed by Starr Paige MD) ??? Chronic kidney disease slow to come back ??? Cirrhosis of liver (HCC-CMS) ??? Clotting disorder (HCC-CMS) ??? Community acquired pneumonia january 2021 ??? COPD exacerbation (HCC-CMS) 04/26/2020 ??? Depression ??? Drug-seeking behavior Per Dr Amelia Tijerina and notes from [facility] patient misconstrued information to several providers about multiple concurrent opiate prescriptions ??? Environmental allergies ??? Exercise involving walking takes a walk daily for 20 minutes ??? GERD (gastroesophageal reflux disease) 12/10/2020 does not wake pt at night ??? Heartburn ??? Hemorrhagic disorder (HCC-CMS) ??? History of general anesthesia ??? History of kidney stones ??? History of nephrolithiasis ??? History of peripheral edema 12/10/2020 - bilateral leg edema - see 11/20/2020 Dr. Cy Denton ??? Hypersplenism syndrome ??? Hypersplenism syndrome ??? Hypotension 70-80/30-40 usually ??? Hypothyroidism ??? Joint replaced 199912/10/2020 nya knees ??? MACHADO (nonalcoholic steatohepatitis) ??? Oxygen dependent 12/10/2020 HS ??? Pancytopenia (HCC-CMS) ??? Rheumatoid arthritis ??? Shortness of breath ??? Sleep apnea ??? Thrombocytopenia (HCC-CMS) 12/10/2020 - see 11/20/2020 Dr. Glenys Denton, [...] Alcohol use: No Alcohol/week: 0.0 standard drinks Family History Problem Relation Age of Onset ??? Cancer Maternal Grandmother skin ??? Diabetes Mother ??? Coronary Artery Disease Father ??? Clotting Disorder Father ??? Diabetes Brother Allergies Allergen Reactions ??? Morphine Anaphylaxis ??? Sulfa (Sulfonamide Antibiotics) Anaphylaxis ??? Tylenol [Acetaminophen] Other (See Comments) Contraindication with medical hx ??? Flagyl [Metronidazole] Other (See Comments) Fatigue ??? Aspirin Other (See Comments) Contraindication with medical hx ??? Injectafer [Ferric Carboxymaltose] ??? Lyrica [Pregabalin] Anxiety Insomnia ??? Reglan [Metoclopramide Hcl] Rash Objective Vitals Temp: [36.1 ??C (97 ??F)-36.8 ??C (98.2 ??F)] , Heart Rate: [72 BPM] , Pulse: [87] , Resp: [18-20] , BP: (96-101)/(55-58) , SpO2: [94 %-96 %] , Numeric Pain Level (Scale 1-10): 9 Weight: Weight : (!) 103.4 kg (228 lb) Body mass index is 39.14 kg/m??. Physical Exam Gen: Obese female laying in bed on low incline in [facility],who is alert and cooperative. Appears stated age. HEENT: conjunctivae/sclera clear, PERRL, EOMI, benign oropharynx, MM somewhat dry. Small amount of white-appearing saliva on lateral tongue. Lymph: no cervical or supraclavicular adenopathy CV: RRR, nml S1/S2, no murmurs/rubs/gallops appreciated Resp: Diffuse, faint end-expiratory wheezing bilaterally. No crackles. Normal work of breathing andspeaks in full sentences. No tachypnea or dyspnea. Abd: Large but soft, diffusely TTP-most prominent epigastrically. No involuntary guarding, rigidity, rebound. NABS. Unable to palpate liver/spleen d/t body habitus. No CVA tenderness. Extr: Bilateral 2+ LE edema to the knees that is diffusely TTP. R slightly > L circumference. Nofocal or circumferential erythema. More firm/indurated on posterior LLE. Warm, well-perfused overall. Radial and DP pulses 2+ bilaterally. Neuro: AAOx3, fluent speech, no facial droop, CNII-XII grossly intact, purposefully moving all extremities against gravity. 4+/5 strength bilat UEs. 4/5 strength bilat LEs. No asterixis. Psych: Affect appropriate Skin: Bruise to left medial elbow-purple. Abdominal striae noted. No signs of skin/soft tissue infection or bleeding. Somewhat violaceous toes bilaterally. Pressure Ulcer Present on admission? No Labs I have personally reviewed Recent Labs 06/29/21 1719 WBC 1.14* RBC 3.37* HGB 9.5* HCT 29.4* MCV 87 MCH 28.2 MCHC 32.3 PLT 47* NEUTROABS 0.92* Recent Labs 06/29/21 1719 NA 140 K 3.8 CL 101 CO2 31 BUN 15 CREATININE 0.99 CALCIUM 8.8 LABALBU 3.6 Recent Labs 06/29/21 1718 PROTIME 15.7* INR 1.4* PTT 37 Recent Labs 06/29/21 1719 TBIL 0.6 ALKPHOS 108 AST 25 ALT 14 Imaging I have independently visualized images: CT HEAD WO CONTRAST Result Date: 06/29/2021 PRELIMINARY REPORT EXAM: CT HEAD WO CONTRAST HISTORY: Head trauma, coagulopathy (Age 19-64y) TECHNIQUE: CT head without contrast. Structured report code: NR.CT01 COMPARISON: Multiple prior CT head most recently June 13, 2021 FINDINGS: PARENCHYMA: No evidence of infarction. No parenchymal hemorrhage. No mass or midline shift. Mild global cerebral volume loss is noted. EXTRA-AXIAL SPACES: No extra-axial hemorrhage. Slightly prominent subarachnoid spaces are present along the vertex.. No extra-axial mass. VENTRICULAR SYSTEM: No intraventricular hemorrhage. No obstructive hydrocephalus. Normal morphology of the ventricular system. VESSELS: Limited evaluation without IV contrast. Normal density in the dural venous sinuses. Calcium is present in the carotid siphons. BONES: No concerning lesions. No evidence of fracture. Scaphocephalic cranial morphology. ORBITS: No significant abnormality. PARANASAL SINUSES/MASTOID AIR CELLS: Predominantly clear. EXTRACRANIAL SOFT TISSUES: Unremarkable. No acute intracranial hemorrhage, infarct or calvarial fractures. XR CHEST 2 VIEWS Result Date: 06/29/2021 XR CHEST 2 VIEWS 06/29/2021 3:55 PM CLINICAL HISTORY/COMMENTS: fluid retention, concern for pleural effusions COMPARISON: CT of the chest June 13, 2021 and April 13, 2021. TECHNIQUE: Frontal and lateral views of the chest were performed. FINDINGS: Soft tissues and extrathoracic findings: No abnormalities. Bones: Degenerative changes are visualized in the bilateral acromioclavicular joints. Cardiac and mediastinal contours: Normal. Lungs: Linear opacities are seen in the bilateral lower lungs and right midlung with bronchial thickening. Pleura/diaphragms: No pleural effusions are seen. No pneumothorax identified. 1. Linear opacities in the bilateral lower lungs, likely atelectasis. 2. Chronic small airways disease as visualized on recent CT of the chest June 13, 2021. 3. No pleural effusions bilaterally. ECG Reviewed. NSR with normal axis and no evidence of acute ischemia or arrhythmia. No QTc prolongation. No significant changes from prior ECG. Assessment Tara Boothe is a 60 y.o. female with a PMHx significant for PMHx of MACHADO, cirrhosis (on furosemide and spironolactone), COPD (on 2 L of home oxygen at night), pancytopenia, splenic and portal vein thromboses (not on anticoagulation), hepatitis C, nephrolithiasis with prior ureteral stent, and ob esity, who presented to the ED this evening for recent falls and recent worsening painful lower extremity swelling, now admitted for observation given her recent falls, pancytopenia, increasing LEedema, nausea, and recent cessation diuretics. She is currently afebrile and hemodynamically stable. LE edema - likely d/t combination of cirrhosis with recent break from diuretic therapy d/t decreased renal function. I anticipate this will improve with resumption of home diuretic therapy. No DVT onbilateral duplex US as of 06/13/21. Given report of diaphoresis, chills, abdominal pain intermittently at home, SBP is a consideration but appears less likely based on clinical appearance and currentsigns/symptoms. POCT US did not reveal fluid collection. Recent falls - likely d/t orthostatic hypotension in the setting of cirrhosis and recent poor po intake per history, but sensory changes/pain and weakness in LEs bilaterally w/ hx of bilateral knee surgeries may be playing a role. Less likely arrhythmogenic based on history, ECG. Similarly, she is on O2 at home at night, but has no new O2 requirement, though CXR reveals bibasilar linear opacifications, likely atelectasis. She remains pancytopenic, though all cell lines are largely unchanged from recent levels w/ in the past 2 weeks and this is most likely related to underlying liver cirrhosis and hypersplenism. Plan Lower Extremity Edema -resume CRIBBER diuretics furosemide 20mg daily, Spironolactone 50mg daily if she continues to toleratepo intake--adjust dosages based on response to therapy -CXR w/o any sign of volume overload -BMP daily to monitor renal fxn, electrolytes -Bilateral LE Duplex US to assess for DVT - been off Lovenox for ~2 weeks -leg elevation as tolerated -strict Is/Os -salt/fluid restricted diet as ordered Recent Falls -No clear etiology, though possibly d/t orthostatic hypotension in the setting of cirrhosis and poor po intake lately, though normotensive on admission. LE swelling/pain and toe numbness may also contribute to impaired ambulation precipitating falls. -ECG w/o indication of ischemia, arrhythmia, or other cardiac etiology -telemetry monitoring -orthostatic vital signs -fall precautions -PT/OT eval. May benefit from PT outpatient given edema w/ pain and weakness of LEs w/ hx of bilat knee surgeries Cirrhosis, Decompensated -resume diuretics and monitor volume status as above -POCT US abdomen to assess for ascites w/o evidence of fluid collection -EGD 07/2019 - small varices (<5mm), portal hypertensive gastropathy -No acute intervention; f/u outpatient hepatology Pancytopenia -W/o evident bleeding on exam. WBC 1.14 (ANC 0.92), Hgb 9.5, PLT 47; consistent from last ED presentation 06/13/21 and outpatient labs 06/25/21; appears to be at baseline. -bone marrow biopsy at [facility] in 2018 showed mature trilineage hematopoiesis with no evidence of bonemarrow disease -possibly iron deficient given cirrhosis/portal HTN gastropathy, though normocytic/normochromic -repeat CBC w/ diff AM -follow up as scheduled with hematology in June -pantoprazole 40 mg po BID -transfuse w/ goal Hgb >7 Chronic Non-Occlusive Portal Vein Thrombosis: unchanged on CT 06/13/21 -Candidate for anticoagulation d/t PVT and prior splenic thrombosis, though with platelet count of 49k and recent cessation of anticoagulation directed by molding fitter (per patient). -Will proceed w/ mechanical DVT prophylaxis as below -Consider contacting molding fitter Dr. Paige tomorrow regarding DVT proph/anticaog. VTE Prophylaxis Sequential Compression Devices Code: FULL CODE Discharge Plan Uncertain at this time Consults None Admission status Observation admission due to anticipated duration of hospitalization is less than two midnights. Patient warrants hospitalization because Frequent falls in the setting of cirrhosis and chronic pancytopenia Lazaro Brock, DO PGY-1, Neurology Pager: [phone] Available on Cortext ATTENDING ATTESTATION: Date of service: 06/29/2021 I have interviewed and examined the patient on 06/29/2021. I have personally reviewed the ECG, laboratory data, imaging studies, and prior records. I have discussed the case with Dr. Christine Layne (EM resident) and Dr. Brock (IM resident). I agree with the findings and plan of care as documented in the resident's note. Additions or editsare documented in purple. Van Fuentes MD 06/30/2021 3:51 documented in this encounter ED Notes * Richie De MD - 06/29/2021 1715 EDT IEloy, am scribing for Richie De MD and Christine Layne MD while he/she is personally performing the service. Eloy Hatch 06/29/2021 17:16 Tara Boothe is a 60 y.o. female who presents to the ED with several weeks of lower extremity swelling and several recent falls. Patient is reportedly chronically unwell and is on home O2. Care and work-up prior to sign out includes: Physical exam showed Lower extremity pain. POCUS: No pleural effusions, and no free fluid in abdomen An EKG was obtained and independently interpreted: EKG ordered and interpreted by me, showed normalsinus rhythm at 80 bpm, normal axis, normal intervals, narrow QRS, no ST or T wave changes, no acute abnormalities I assumed care of patient from Segundo Avila MD with labs, chest x- ray, and CT head pending. After I assumed care the patient had: Patient had labs that were reviewed independently by myself, significant for lowe WBC at 1.14, anemia, groslly normal CMP, elevated INR at 1.4. The patient had a Head WO contrast CT which was significant for No acute intracranial hemorrhage, infarct or calvarial fractures.. Patient had CT that was obtained, reviewed, and interpreted by myself along with a radiologist. Please see radiology report for further details. The patient had a Chest X-Ray which was significant for 1. Linear opacities in the bilateral lower lungs, likely atelectasis. 2. Chronic small airways disease as visualized on recent CT of the chest June 13, 2021. 3. No pleural effusions bilaterally. Patient had X-Ray that was obtained, reviewed, and interpreted by myself along with a radiologist. Please see radiology report for further details. (19:11) Paged the admitting hospitalist. (19:36) Discused the patient with the hospitalist. They will admit the patient. Upon reevaluation the patient was stable for admission to Internal [facility] service under the care of Dr. Fuentes. The patient was receptive to this plan. Final diagnoses: Fall, initial encounter Anasarca Pancytopenia (HCC-CMS) This documentation is recorded by Eloy Hatch acting as Scribe under the direction and presence ofRichie De MD and Christine Layne MD. Richie De MD and Christine Layne MD: We personally performed the services recorded by laura in my presence. We confirm the scribe's documentation has been reviewed by me to accurately and completely record our work, treatment, procedures, and medical decision making. * Segundo Avila MD - 06/29/2021 1528 EDT This patient received an evaluation and medical screening exam for emergent medical conditions at the [facility] on 06/29/2021 This note was created and authored by SINA DYE MD, working under the supervision of Segundo Avila MD. I, Segundo Avila MD, performed a history and exam of this patient and discussed the casewith the resident. I have reviewed and edited this note, and the documentation is consistent with my findings, assessment and plan. I fully participated in the medical decision making. Any changes I have made to this note are in blue. I performed a limited ED POCUS applications: Abdomen [id number] ultrasound. Please see my narrative and impression recorded in imaging results. I performed, reviewed, and independently interpretedthe images. Images saved in [employer] and PACS. I performed a limited ED POCUS applications: Thoracic [id number] ultrasound. Please see my narrative and impression recorded in imaging results. I performed, reviewed, and independently interpreted the images. Images saved in [employer] and PACS. This documentation is recorded by Melody Zhagn acting as Scribe under the direction and presenceof Segundo Avila MD. Segundo Avila MD: I personally performed the services recorded by the scribe in my presence. I confirm the scribe's documentation has been reviewed by me to accurately and completely record my work, treatment, procedures, and medical decision making. Chief Complaint Chief Complaint Patient presents with ??? Fluid Collection Pt to triage from home c/o 28lb weight gain in less than 2 weeks (13 in last 2 days.) No hx heart failure. Unable to bear weight. Skin PWD, easy WOB. ??? Fall 2 falls since last evening due to dizziness + headstrike, denies LOC. Assessment and Medical Decision Making Tara Boothe is a 60 y.o. female with a past medical history of cirrhosis on furosemide and spironolactone, COPD on 2 L of home oxygen at night, Machado, pancytopenia, and CCY who presents to the ED for recent falls and lower extremity swelling. POCUS displayed no pleural effusions, and no free fluid in abdomen.Given the patient's presentation and physical exam displaying anasarca from toes past her hips the patient is likely fluid overloaded due to decrease in her Lasix because of her kidney function; the patient will require diuresis via IV Lasix and inpatient admission. The patient was additionally treated with antiemetics for nausea and duonebs given her COPD and wheezing found on exam. Pending CXR, CT Head, CBC, and CMP. Care was transferred to the continuing care team at 16:37. Clinical Impression Volume overload, Anasarca Disposition Condition at transfer of care from the Emergency Department: Stable Disposition decisions were made weighing risks and benefits of hospitalization vs. outpatient treatment, the risk for further decompensation, and the patient???s wishes. Signed out pending to care team at 6:37 HPI Traa Boothe is a 60 y.o. female with a past medical history of cirrhosis on furosemide and spironolactone, COPD on 2 L of home oxygen at night, Machado, pancytopenia, and CCY who presents to the ED for recent falls and lower extremity swelling. The patient states for the past few weeks she has been having lower extremity swelling. She states that her primary care physician recently in the past few weeks had to make changes to her dosage of furosemide 40 mg daily and spironolactone 100 mg dailydue to poor kidney function. She states her furosemide was decreased to 20 mg daily and her spironolactone was discontinued and she was advised to restart it today at 50 mg. Of note she took both her20 mg of furosemide and 50 mg of spironolactone prior to coming to the hospital. She states that last night due to her legs being so swollen and she had decreased sensation in her legs she had 2 falls she is not sure if she hit her head however she notes that she hit her left arm which produced bruising. She called her primary care physician today and explained what happened and he suggested thatshe comes to the hospital. She has noted that she has also had increased abdominal distention with abdominal pain, nausea with bilious nonbloody emesis, and states she has not been able to keep anything down. She is not sure if she sees an secretarial teacher for her cirrhosis but she confirms that she sees a molding fitter due to her pancytopenia which she has required iron infusions and platelet infusions prior to surgeries in the past. She endorses during this time she has had increased orthopnea requiring more pillows. She denies fevers, chills, ill contacts, headaches, dizziness, dysuria, hematuria, increased fatigue, or injuries. Of note the patient states that she smokes 2 to 3 cigarettes/dayfor years, has no alcohol use, no recreational use, and has a family history of a father who he hada stroke and is currently 93 years old and and mother who from a motor vehicle accident at theage of 73 and had no medical conditions. History was provided by: Patient Patient's pertinent PMH, FH, SH were reviewed and updated as needed. ROS Review of Systems Constitutional: Negative. HENT: Negative. Eyes: Negative. Respiratory: Positive for shortness of breath. Negative for cough, hemoptysis, sputum production and wheezing. Cardiovascular: Positive for orthopnea and leg swelling. Negative for chest pain, palpitations, claudication and PND. Gastrointestinal: Positive for abdominal pain, nausea and vomiting. Negative for blood in stool, constipation, diarrhea, heartburn and melena. Genitourinary: Negative. Musculoskeletal: Positive for falls. LE pain Skin: Negative. Neurological: Positive for weakness. Negative for dizziness, tingling, tremors, sensory change, speech change, focal weakness, seizures, loss of consciousness and headaches. Psychiatric/Behavioral: Negative. Physical Exam Vital Signs Vitals Reassessment?: Yes Temp: 36.8 ??C (98.2 ??F) Temp src: Oral Pulse: 87 Resp: 20 SpO2: 96 % BP: 101/55 BP MAP: 66 mm Hg BP Device: BP Machine BP Patient Position: Sitting BP Cuff Location: Left arm Willis Agitation Sedation Scale: 0 O2 Device: None (Room air) Vital signs were reviewed. Physical Exam Constitutional: Appearance: She is diaphoretic. HENT: Mouth/Throat: Mouth: Mucous membranes are dry. Eyes: Extraocular Movements: EOM normal. Neck: Thyroid: No thyromegaly. Cardiovascular: Rate and Rhythm: Normal rate. Heart sounds: Normal heart sounds. Pulmonary: Breath sounds: Wheezing present. Abdominal: General: There is distension. Palpations: There is no mass. Tenderness: There is abdominal tenderness in the left lower quadrant. There is no guarding or rebound. Musculoskeletal: General: Tenderness and edema present. Normal range of motion. Cervical back: Normal range of motion and neck supple. Right upper leg: Edema present. Left upper leg: Edema present. Right lower le+ Pitting Edema present. Left lower le+ Pitting Edema present. Skin: General: Skin is warm. Neurological: Mental Status: She is alert and oriented to person, place, and time. Psychiatric: Mood and Affect: Mood and affect normal. Procedures Procedures Results and ED course A medical screening exam was performed. POCUS: No pleural effusions, and no free fluid in abdomen An EKG was obtained and independently interpreted: EKG ordered and interpreted by me, showed normalsinus rhythm at 80 bpm, normal axis, normal intervals, narrow QRS, no ST or T wave changes, no acute abnormalities Imaging obtained was reviewed and independently interpreted: Pending Laboratory results independently reviewed, significant for: Pending Sina Dye MD Neurology Resident, PGY-1 [employer] or Pager [phone] Discussed w/ Emergency Medicine attending, Dr. Avila * Raul Gambino - 06/29/2021 1512 EDT 12 Lead EKG Performed by RAUL GAMBINO and shown to Dr. Monalisa MD. * Raul Gambino - 06/29/2021 1501 EDT TCALL: MANOJ KAYE. [birth year]. PT REFERRED BY [facility] FOR SEVERAL POUND WEIGHT GAIN, AND PAINFUL,RED LOWER EXTREMITIES. N/V, DIZZY. NEG COVID SCREEN. (JML) documented in this encounter Miscellaneous Notes * Plan of Care - Adela Cross RN - 07/02/2021 0250 EDT Problem: High Fall Risk: Goal: Patient Will Remain Free from Fall-Related Injury Outcome: Ongoing Problem: Daily Care Plan Goals Goal: Care Plan Documentation Outcome: Ongoing Data: taken over care at 1900h. A&Ox3. On 2L oxyen at night. Had some snacks around 1am. Walks to the bathroom. Sometimes feels that she needs to empty her bladder more but nothing is coming out.Having pain on her swollen legs. Able to walk around the vang. Action: hourly rounding done. Due meds given as per JAN. Clustered nursing care. Telemetry taken off. Response: good output overnight. Slept fairly. ADELA CROSS RN 07/02/2021 2:50 * Plan of Care - Angelita Fountain RN - 07/01/2021 1444 EDT Focus: Uncontrolled Pain Data: Pt reporting uncontrolled pain 8/10. Pain located BLE w/ fluid retention and +2 pitting edema. Aggravated by movement and palpation. See pain assessment for additional information. Action: Pt receiving Dilaudid 2mg PO Q12 medications without adequate relief. Sirena PHIPPS notified. approved administering PRN Dilaudid early at 08. Provided the following non-pharmacologic interventions offered repositioning and assistance with ambulation. Response: Pt now reporting improved pain after medication but verbalized having difficulty waiting 12 hrs between doses. MD aware. Continue to monitor and assess for pain. ANGELITA FOUNTAIN RN 07/01/2021 14:46 * Plan of Care - Adela Cross RN - 07/01/2021 0236 EDT Problem: High Fall Risk: Goal: Patient Will Remain Free from Fall-Related Injury Outcome: Ongoing Data: taken over care at 1900h. A&Ox3. On 2L oxygen at night. On bed alarm. Uses the commode overnight. Still feels her legs at tight. Pain score of 8/10 from her legs and abdomen. CG with walker. Action: hourly rounding done. Due meds given as per JAN. Clustered nursing care. Response: slept well. Complained of feeling that she is not emptying her bladder fully but having no pain. Bladder scan 521. Doctor informed. Straight cath order put in. Tried the commode = urine 100mls and post cath 400mls. ADELA CROSS RN 07/01/2021 2:37 * Plan of Care - Dana Mathews RN - 06/30/2021 1838 EDT Problem: Daily Care Plan Goals Goal: Care Plan Documentation Flowsheets (Taken 06/30/2021 1013) Area of Focus: Pain/ Comfort Goal This Shift: Pt will report improved pain in legs Note: Focus: Managed Pain Data: Pt with complaint of 8/10, located generalized all over body, but more concentrated lately over BLE. Aggravated by movement, weight bearing. See pain assessment for additional information. Action: Pt receiving PRN medications (see MAR). Typically takes BID dilaudid. Provided the following non-pharmacologic interventions: repositioning, elevation of legs. Response: Pt reports good pain control with current regimen. Will continue to monitor and adjust interventions as necessary. DANA MATHEWS RN 06/30/2021 18:36 * Plan of Care - Adela Cross RN - 06/30/2021 0252 EDT Problem: High Fall Risk: Goal: Patient will Remain Free of Falls due to Altered Elimination Outcome: Ongoing Data: admitted from ED around 9pm bec of fall and LE edema. A&Ox3. On 2L of oxygen when she sleeps. Uses the commode. front wheel walker at bedside. Bed alarm on thru the night. Edema on the lower legs up to the knees. Pain score of 8/10, on the legs and abdl area. Action: hourly rounding done. Due meds given as per MAR. Clustered nursing care. Had bedside USS bythe doctor. Response: slept fairly. Calls if needing the commode. ADELA CROSS RN 06/30/2021 2:53 documented in this encounter Plan of Treatment Upcoming Encounters Date Type Department Care Team (Late st Contact Info) Description 01/04/2025 13:00 EST Office Visit [facility] Ophthalmology - [address] [id number] Gagandeep Rome MD [address] [facility], [address] [place] [id number] 02/11/2025 13:30 EDT Telemedicine [facility] Hematology & Oncology - [address] [id number] Dana Padilla MD [address] [place] [address], [address] [place] [id number] documented as of this encounter Procedures Procedure Name Priority Date/Time Associated Diagnosis Comments ECG REPORT - SCANNED 07/06/2021 12:40 EDT COMPLETE BLOOD COUNT Routine 07/02/2021 11:03 EDT BASIC METABOLIC PANEL (BMP) Routine 07/02/2021 11:03 EDT ECG REPORT - SCANNED 07/01/2021 17:48 EDT COMPLETE BLOOD COUNT Routine 07/01/2021 9:56 EDT BASIC METABOLIC PANEL (BMP) Routine 07/01/2021 9:56 EDT US LOWER VENOUS DUPLEX (DVT) BILATERAL Routine 06/30/2021 12:06 EDT DIFFERENTIAL, AUTOMATED MANUAL Today 06/30/2021 7:11 EDT COMPLETE BLOOD COUNT AND DIFFERENTIAL Routine 06/30/2021 7:11 EDT BUN Routine 06/30/2021 7:11 EDT CREATININE Routine 06/30/2021 7:11 EDT ELECTROLYTES Routine 06/30/2021 7:11 EDT ZZCOVID-19 TEST [facility] PCR Today 06/29/2021 17:33 EDT COVID-19 TESTING Routine 06/29/2021 17:3 3 EDT DIFFERENTIAL, AUTOMATED MANUAL Today 06/29/2021 17:19 EDT COMPLETE BLOOD COUNT AND DIFFERENTIAL STAT 06/29/2021 17:19 EDT COMPREHENSIVE METABOLIC PANEL (CMP) STAT 06/29/2021 17:19 EDT PTT STAT 06/29/2021 17:18 EDT PROTIME STAT 06/29/2021 17:[address] HEAD WO CONTRAST STAT 06/29/2021 1 7:14 EDT POCT US ED THORACIC 06/29/2021 1 6:23 EDT POCT US ED ABDOMEN 06/29/2021 16 :23 EDT XR CHEST 2 VIEWS STAT 06/29/2021 16:1 0 EDT EKG 12-LEAD STAT 06/29/2021 15:07 EDT documented in this encounter Results * ECG REPORT - SCANNED (07/06/2021 12:40 EDT) 07/06/2021 12:4 0 EDT us Scan [address] PROCEDURE/MINOR SURGICAL OR DERABLES Final Result * (ABNORMAL) BASIC METABOLIC PANEL (BMP) (07/02/2021 11:03 EDT) Sodium 137 136 - 145 mmol/L 07/02/2021 12:39 [facility] Potassium 4.3 3.5 - 5.0 mEq/L 07/02/2021 12:39 [facility] Chloride 101 96 - 110 mEq/L 07/02/2021 12:39 [facility] CO2 Total 26 22 - 32 mEq/L 07/02/2021 12:39 [facility] Glucose 136(H) 70 - 100 mg/dL 07/02/2021 12:39 [facility] Calcium 8.8 8.5 - 10.5 mg/dL 07/02/2021 12:39 [facility] Calculated Calcium 9.1 8.5 - 10.5 mg/dL 07/02/2021 12:39 [facility] BUN 19 10 - 26 mg/dL 07/02/2021 12:39 [facility] Creatinine 0.94 0.52 - 1.04 mg/dL 07/02/2021 12:39 [facility] eGFR 66 >60 mL/min/1.7 3m2 07/02/2021 12:39 [facility] Comment:eGFR calculated lobito coppola CKD-EPI equation for non- Americans. Multiply eGFR by 1.16 for patients. Blood VENOUS BLOOD / Unknown Venipuncture / Unknown 07/02/2021 11:03 EDT 07/02/2021 11:56 EDT us Adelaida Pack MD CHEMISTRY & BLOOD GAS ORDERABL ES Final Result [facility] [address] [place] [address] * (ABNORMAL) COMPLETE BLOOD COUNT (07/02/2021 11:03 EDT) WBC 1.31(L) 4.00 - 12.40 K/cmm 07/02/2021 11:50 EDT [facility] RBC 3.58(L) 3.86 - 5.04 M/cmm 07/02/2021 11:50 [facility] Hemoglobin 9.8(L) 11.6 - 15.2 gm/dL 07/02/2021 11:50 [facility] HCT 31.1(L) 34.9 - 44.4 % 07/02/2021 11:50 [facility] MCV 87 81 - 98 fl 07/02/2021 11:50 [facility] MCH 27.4 26.7 - 33.3 pg 07/02/2021 11:50 [facility] MCHC 31.5(L) 32.1 - 35.9 gm/dL 07/02/2021 11:50 [facility] RDW-CV 16.5(H) <14.7 % 07/02/2021 11:50 [facility] RDW-SD 52.6(H) <50.4 fl 07/02/2021 11:50 [facility] PLT 41(L) 141 - 377 K/cmm 07/02/2021 11:50 [facility] MPV 10.1 9.5 - 12.7 fl 07/02/2021 11:50 [facility] Blood VENOUS BLOOD / Unknown Venipuncture / Unknown 07/02/2021 11:03 EDT 07/02/2021 11:41 EDT us Adelaida Pack MD HEMATOLOGY & PF4 ORDERABLES Fi nal Result [facility] [address] [place] [address] * ECG REPORT - SCANNED (07/01/2021 17:48 EDT) 07/01/2021 17:4 8 EDT us Scan [address] PROCEDURE/MINOR SURGICAL OR DERABLES Final Result * (ABNORMAL) COMPLETE BLOOD COUNT (07/01/2021 9:56 EDT) WBC 1.27(L) 4.00 - 12.40 K/cmm 07/01/2021 10:41 [facility] RBC 3.55(L) 3.86 - 5.04 M/cmm 07/01/2021 10:41 [facility] Hemoglobin 10.0(L) 11.6 - 15.2 gm/dL 07/01/2021 10:41 [facility] HCT 30.4(L) 34.9 - 44.4 % 07/01/2021 10:41 [facility] MCV 86 81 - 98 fl 07/01/2021 10:41 [facility] MCH 28.2 26.7 - 33.3 pg 07/01/2021 10:41 [facility] MCHC 32.9 32.1 - 35.9 gm/dL 07/01/2021 10:41 [facility] RDW-CV 16.1(H) <14.7 % 07/01/2021 10:41 [facility] RDW-SD 50.4(H) <50.4 fl 07/01/2021 10:41 [facility] PLT 50(L) 141 - 377 K/cmm 07/01/2021 10:41 [facility] MPV 10.7 9.5 - 12.7 fl 07/01/2021 10:41 [facility] Blood VENOUS BLOOD / Unknown Venipuncture / Unknown 07/01/2021 9:56 EDT 07/01/2021 10:21 EDT us Adelaida Pack MD HEMATOLOGY & PF4 ORDERABLES Fi nal Result [facility] [address] [place] [address] * (ABNORMAL) BASIC METABOLIC PANEL (BMP) (07/01/2021 9:56 EDT) Sodium 140 136 - 145 mmol/L 07/01/2021 10:58 [facility] Potassium 4.1 3.5 - 5.0 mEq/L 07/01/2021 10:58 [facility] Chloride 102 96 - 110 mEq/L 07/01/2021 10:58 [facility] CO2 Total 26 22 - 32 mEq/L 07/01/2021 10:58 [facility] Glucose 138(H) 70 - 100 mg/dL 07/01/2021 10:58 [facility] Calcium 8.7 8.5 - 10.5 mg/dL 07/01/2021 10:58 [facility] Calculated Calcium 9.1 8.5 - 10.5 mg/dL 07/01/2021 10:58 [facility] BUN 16 10 - 26 mg/dL 07/01/2021 10:58 [facility] Creatinine 1.01 0.52 - 1.04 mg/dL 07/01/2021 10:58 [facility] eGFR 61 >60 mL/min/1.7 3m2 07/01/2021 10:58 [facility] Comment:eGFR calculated lobito coppola CKD-EPI equation for non- Americans. Multiply eGFR by 1.16 for patients. Blood VENOUS BLOOD / Unknown Venipuncture / Unknown 07/01/2021 9:56 EDT 07/01/2021 10:22 EDT Adelaida Pack MD CHEMISTRY & BLOOD GAS ORDERABL ES Final Result [facility] [address] [place] [address] * US LOWER VENOUS DUPLEX (DVT) BILATERAL (06/30/2021 12:06 EDT) Anatomical Region Laterality Modality Vascular Ultrasound Narrative 07/03/2021 9:03 EDT ?No evidence of deep or superficial [...] Lower extremity swelling. Venous Past Medical History Former tobacco use. us Lazaro Vinod DO IMG US VASCULAR ORDERABLES Final Result * (ABNORMAL) DIFFERENTIAL, AUTOMATED MANUAL (06/30/2021 7:11 EDT) % Neutrophils 83.3 % 06/30/2021 9:02 [facility] % Lymphocytes 13.2 % 06/30/2021 9:02 [facility] % Monocytes 2.6 % 06/30/2021 9:02 [facility] % Basophils 0.9 % 06/30/2021 9:02 [facility] Absolute Neutrophils 0.77(L) 2.20 - 8.85 K/cmm 06/30/2021 9:02 [facility] Absolute Lymphocytes 0.12(L) 1.09 - 3.30 K/cmm 06/30/2021 9:02 [facility] Absolute Monocytes 0.02(L) 0.10 - 0.80 K/cmm 06/30/2021 9:02 [facility] ABS Basophils 0.01 0.01 - 0.11 K/cmm 06/30/2021 9:02 [facility] Blood VENOUS BLOOD / Unknown Venipuncture / Unknown 06/30/2021 7:11 EDT 06/30/2021 8:01 EDT us Lazaro Vinod DO HEMATOLOGY & PF4 ORDERABLES Pricila l Result [facility] [address] [place] [address] * ELECTROLYTES (06/30/2021 7:11 EDT) Sodium 139 136 - 145 mmol/L 06/30/2021 8:34 EDT [facility] Potassium 3.8 3.5 - 5.0 mEq/L 06/30/2021 8:34 EDT [facility] Chloride 101 96 - 110 mEq/L 06/30/2021 8:34 EDT [facility] CO2 Total 31 22 - 32 mEq/L 06/30/2021 8:34 EDT [facility] Blood VENOUS BLOOD / Unknown Venipuncture / Unknown 06/30/2021 7:11 EDT 06/30/2021 8:03 EDT Lazaro Vinod DO CHEMISTRY & BLOOD GAS ORDERABLES Final Result Performing Organization Address [facility] de Phone Number [facility] [address] [place] [address] * (ABNORMAL) CREATININE (06/30/2021 7:11 EDT) Creatinine 1.05(H) 0.52 - 1.04 mg/dL 06/30/2021 8:34 EDT [facility] eGFR 58(L) >60 mL/min/1.7 3m2 06/30/2021 8:34 EDT [facility] Comment:eGFR calculated lobito coppola CKD-EPI equation for non- Americans. Multiply eGFR by 1.16 for patients. Blood VENOUS BLOOD / Unknown Venipuncture / Unknown 06/30/2021 7:11 EDT 06/30/2021 8:03 EDT Lazaro Vinod DO CHEMISTRY & BLOOD GAS ORDERABLES Final Result Performing Organization Address [facility] Co de Phone Number [facility] [address] [place] [address] * BUN (06/30/2021 7:11 EDT) BUN 14 10 - 26 mg/dL 06/30/2021 8:34 [facility] Blood VENOUS BLOOD / Unknown Venipuncture / Unknown 06/30/2021 7:11 EDT 06/30/2021 8:03 EDT us Lazaro Vinod DO CHEMISTRY & BLOOD GAS ORDERABLES Final Result [facility] [address] [place] [address] * (ABNORMAL) COMPLETE BLOOD COUNT AND DIFFERENTIAL (06/30/2021 7:11 EDT) WBC 0.93(LL) 4.00 - 12.40 K/cmm 06/30/2021 8:16 [facility] RBC 3.31(L) 3.86 - 5.04 M/cmm 06/30/2021 8:16 [facility] Hemoglobin 9.1(L) 11.6 - 15.2 gm/dL 06/30/2021 8:16 [facility] HCT 28.5(L) 34.9 - 44.4 % 06/30/2021 8:16 [facility] MCV 86 81 - 98 fl 06/30/2021 8:16 [facility] MCH 27.5 26.7 - 33.3 pg 06/30/2021 8:16 [facility] MCHC 31.9(L) 32.1 - 35.9 gm/dL 06/30/2021 8:16 [facility] RDW-CV 16.3(H) <14.7 % 06/30/2021 8:16 [facility] RDW-SD 51.3(H) <50.4 fl 06/30/2021 8:16 [facility] PLT 46(L) 141 - 377 K/cmm 06/30/2021 8:16 [facility] MPV 10.4 9.5 - 12.7 fl 06/30/2021 8:16 [facility] Type of Differential: Manual 06/30/2021 8:16 [facility] Blood VENOUS BLOOD / Unknown Venipuncture / Unknown 06/30/2021 7:11 EDT 06/30/2021 8:01 EDT us Lazaro Vinod DO PACKAGES & DNA PROBE ORDERABLES Final Result Performing Organization Address [facility] Co de Phone Number [facility] [address] [place] [address] * COVID-19 TEST [facility] PCR (06/29/2021 17:33 EDT) Swab ENTIRE NASOPHARYNX / Unknown Swab / Unknown 06/29/2021 17:33 EDT 06/29/2021 17:40 EDT Segundo Avila MD MICROBIOLOGY - GENERAL ORDERABLES Final Result Performing Organization Address [facility] Co de Phone Number [facility] [address] [place] [address] * COVID-19 TESTING (06/29/2021 17:33 EDT) COVID-19 rt-PCR Result Negative Negative 06/29/2021 21:45 EDT [facility] Comment: This test has [...] history, and epidemiological information. Performed on the [email or web address] Fusion instrument Performing Lab [place] [facility] 06/29/2021 21:45 EDT [facility] Swab ENTIRE NASOPHARYNX / Unknown Swab / Unknown 06/29/2021 17:33 EDT 06/29/2021 17:40 EDT Segundo Avial MD MICROBIOLOGY - GENERAL ORDERABLES Final Result Performing Organization Address [facility] Co de Phone Number [facility] [address] [place] [address] * (ABNORMAL) DIFFERENTIAL, AUTOMATED MANUAL (06/29/2021 17:19 EDT) % Neutrophils 80.7 % 06/29/2021 18:29 EDT [facility] % Lymphocytes 16.7 % 06/29/2021 18:29 EDT [facility] % Monocytes 2.6 % 06/29/2021 18:29 EDT [facility] Absolute Neutrophils 0.92(L) 2.20 - 8.85 K/cmm 06/29/2021 18:29 EDT [facility] Absolute Lymphocytes 0.19(L) 1.09 - 3.30 K/cmm 06/29/2021 18:29 EDT [facility] Absolute Monocytes 0.03(L) 0.10 - 0.80 K/cmm 06/29/2021 18:29 EDT [facility] Blood VENOUS BLOOD / Unknown Venipuncture / Unknown 06/29/2021 17:19 EDT 06/29/2021 17:39 EDT Segundo Avila MD HEMATOLOGY & PF4 ORDER YANN Final Result Performing Organization Address City/[facility]/ZIP Co de Phone Number [facility] [address] [place] [address] * (ABNORMAL) COMPREHENSIVE METABOLIC PANEL (CMP) (06/29/2021 17:19 EDT) Sodium 140 136 - 145 mmol/L 06/29/2021 17:59 EDT [facility] Potassium 3.8 3.5 - 5.0 mEq/L 06/29/2021 17:59 EDT [facility] Chloride 101 96 - 110 mEq/L 06/29/2021 17:59 [facility] CO2 Total 31 22 - 32 mEq/L 06/29/2021 17:59 [facility] Glucose 81 70 - 100 mg/dL 06/29/2021 17:59 [facility] BUN 15 10 - 26 mg/dL 06/29/2021 17:59 [facility] Creatinine 0.99 0.52 - 1.04 mg/dL 06/29/2021 17:59 [facility] eGFR 62 >60 mL/min/1.7 3m2 06/29/2021 17:59 [facility] Comment:eGFR calculated lobito coppola CKD-EPI equation for non- Americans. Multiply eGFR by 1.16 for patients. Total Protein 6.2(L) 6.3 - 8.2 g/dL 06/29/2021 17:59 [facility] Albumin 3.6 3.4 - 4.9 g/dL 06/29/2021 17:59 [facility] Alkaline Phosphatase 108 38 - 126 U/L 06/29/2021 17:59 [facility] AST 25 15 - 46 U/L 06/29/2021 17:59 [facility] ALT 14 <35 U/L 06/29/2021 17:59 [facility] Bilirubin, Total 0.6 <1.4 mg/dL 06/29/20 17:59 [facility] Calcium 8.8 8.5 - 10.5 mg/dL 06/29/2021 17:59 [facility] Calculated Calcium 9.1 8.5 - 10.5 mg/dL 06/29/2021 17:59 [facility] Blood VENOUS BLOOD / Unknown Venipuncture / Unknown 06/29/2021 17:19 EDT 06/29/2021 17:39 EDT us Segundo Avila MD CHEMISTRY & BLOOD GAS ORDERABLES Final Result [facility] [address] [place] [address] * (ABNORMAL) COMPLETE BLOOD COUNT AND DIFFERENTIAL (06/29/2021 17:19 EDT) WBC 1.14(L) 4.00 - 12.40 K/cmm 06/29/2021 18:11 [facility] RBC 3.37(L) 3.86 - 5.04 M/cmm 06/29/2021 18:11 [facility] Hemoglobin 9.5(L) 11.6 - 15.2 gm/dL 06/29/2021 18:11 [facility] HCT 29.4(L) 34.9 - 44.4 % 06/29/2021 18:11 [facility] MCV 87 81 - 98 fl 06/29/2021 18:11 [facility] MCH 28.2 26.7 - 33.3 pg 06/29/2021 18:11 [facility] MCHC 32.3 32.1 - 35.9 gm/dL 06/29/2021 18:11 [facility] RDW-CV 16.1(H) <14.7 % 06/29/2021 18:11 [facility] RDW-SD 51.3(H) <50.4 fl 06/29/2021 18:11 [facility] PLT 47(L) 141 - 377 K/cmm 06/29/2021 18:11 [facility] MPV 10.2 9.5 - 12.7 fl 06/29/2021 18:11 [facility] Type of Differential: Manual 06/29/2021 18:11 [facility] Blood VENOUS BLOOD / Unknown Venipuncture / Unknown 06/29/2021 17:19 EDT 06/29/2021 17:39 EDT us Segundo Avila MD PACKAGES & DNA PROBE O RDERABLES Final Result [facility] [address] [place] [address] * PTT (06/29/2021 17:18 EDT) PTT 37 26 - 37 secs 06/29/2021 18:11 EDT [facility] Blood VENOUS BLOOD / Unknown Venipuncture / Unknown 06/29/2021 17:18 EDT 06/29/2021 17:39 EDT us Segundo Avila MD HEMATOLOGY & PF4 ORDER YANN Final Result [facility] [address] [place] [address] * (ABNORMAL) PROTIME (06/29/2021 17:18 EDT) I.N.R. 1.4(H) 0.9 - 1.1 Ratio 06/29/2021 18:11 EDT [facility] Pro Time 15.7(H) 10.4 - 12.6 secs 06/29/2021 18:11 EDT [facility] Blood VENOUS BLOOD / Unknown Venipuncture / Unknown 06/29/2021 17:18 EDT 06/29/2021 17:39 EDT Narrative [facility] - 06/29/2021 18:11 EDT Moderate Intensity Coumadin INR = 2.0-3.0 Adjustments in anticoagulant therapy dose should be based on the INR and NOT on the Protime. us Segundo Avila MD HEMATOLOGY & PF4 ORDER YANN Final Result [facility] [address] [place] [address] * CT HEAD WO CONTRAST (06/29/2021 17:14 EDT) Anatomical Region Laterality Modality Head Computed Tomogra phy 06/30/2021 8:48 EDT Impressions 06/30/2021 8:48 EDT No acute intracranial hemorrhage, infarct or calvarial fractures. I have personally reviewed the images and the above interpretation and agree with the findings. Narrative 06/30/2021 8:48 EDT EXAM: CT HEAD WO CONTRAST HISTORY: Head trauma, coagulopathy (Age 19-64y) ?? TECHNIQUE: CT head without contrast. Structured report code: NR.CT01 COMPARISON: Multiple prior CT head most recently June 13, 2021 FINDINGS: PARENCHYMA: No evidence of infarction. No parenchymal hemorrhage. No mass or midline shift. Mild global cerebral volume loss is noted. EXTRA-AXIAL SPACES: No extra-axial hemorrhage. Slightly prominent subarachnoid spaces are present along the vertex.. No extra-axial mass. VENTRICULAR SYSTEM: No intraventricular hemorrhage. No obstructive hydrocephalus. Normal morphology of the ventricular system. VESSELS: Limited evaluation without IV contrast. Normal density in the dural venous sinuses. Atherosclerotic calcifications are present in the carotid siphons. BONES: No concerning lesions. No evidence of fracture. Multiple dental caries. ORBITS: No significant abnormality. PARANASAL SINUSES/MASTOID AIR CELLS: Predominantly clear. EXTRACRANIAL SOFT TISSUES: Unremarkable. Procedure Note Anthony Ragland MD - 06/30/2021 EXAM: CT HEAD WO CONTRAST HISTORY: Head trauma, coagulopathy (Age 19-64y) TECHNIQUE: CT head without contrast. Structured report code: NR.[id number] COMPARISON: Multiple prior CT head most recently June 13, 2021 FINDINGS: PARENCHYMA: No evidence of infarction. No parenchymal hemorrhage. No mass or midlineshift. Mild global cerebral volume loss is noted. EXTRA-AXIAL SPACES: No extra-axial hemorrhage. Slightly prominent subarachnoid spaces arepresent along the vertex.. No extra-axial mass. VENTRICULAR SYSTEM: No intraventricular hemorrhage. No obstructive hydrocephalus. Normalmorphology of the ventricular system. VESSELS: Limited evaluation without IV contrast. Normal density in the dural venoussinuses. Atherosclerotic calcifications are present in the carotidsiphons. BONES: No concerning lesions. No evidence of fracture. Multiple dental caries. ORBITS: No significant abnormality. PARANASAL SINUSES/MASTOID AIR CELLS: Predominantly clear. EXTRACRANIAL SOFT TISSUES: Unremarkable. IMPRESSION No acute intracranial hemorrhage, infarct or calvarial fractures. I have personally reviewed the images and the above interpretation andagree with the findings. Segundo Avila MD IMG CT ORDERABLES Pricila mccord Result * POCT US ED THORACIC (06/29/2021 16:23 EDT) Anatomical Region Laterality Modality Other 06/29/2021 16:2 3 EDT Narrative 07/01/2021 7:34 EDT Study Date and Time: 2021-06-29 16:23 Study Author: Segundo Avila ED Thoracic/Lung: Indication(s) for exam: ?Select all that apply: Dyspnea ?Other: concern for pleural effusions or pulmonary edema Views obtained: ?Right Thorax: RT Posterior/PLAPS ?Left Thorax: LT Posterior/PLAPS ?Cardiac Views: N/A ?Other: N/A Findings (Right Thorax): ?RT Lung Sliding: Present ?RT Lung Point Sign: Absent ?If positive, estimated size of pneumothorax: N/A ?Right Pleural Findings: Normal ?Other right pleural findings: N/A ?RT Interstitium: A-Lines: Present ?RT Interstitium: B-Lines (>3 per view): Absent ?RT Pleural Effusion: Absent ?If RT Pleural Effusion present: N/A ?RT Lung Consolidation: Absent ?RT Air Bronchograms: N/A ?Other Right Thoracic Findings: N/A Findings (Left Thorax): ?LT Lung Sliding: Present ?LT Lung Point Sign: Absent ?If positive, estimated size of pneumothorax: N/A ?Left Pleural Findings: Normal ?Other left pleural findings: N/A ?LT Interstitium: A-Lines: Present ?LT Interstitium: B-Lines (>3 per view): Absent ?LT Pleural Effusion: Absent ?If LT Pleural Effusion present: N/A ?LT Lung Consolidation: Absent ?LT Air Bronchograms: N/A ?Other Left Thoracic Findings: N/A Findings - Cardiac/IVC: ?Cardiac Findings: N/A ?Other Cardiac: N/A ?IVC Findings: N/A Interpretation: ?Select all that apply: No sonographic evidence of acute pulmonary disease ?Other: N/A Confirmatory Study: ?What confirmatory study was performed during ED patient evaluation?: No additional imaging ordered ?Confirmatory Study Findings/Comments:: N/A Signed by Segundo Avila on 2021-07-01 07:34 Procedure Note Segundo Avila MD - 07/01/2021 Study Date and Time: 2021-06-29 16:23 Study Author: Segundo Avila ED Thoracic/Lung: Indication(s) for exam: Select all that apply: Dyspnea Other: concern for pleural effusions or pulmonary edema Views obtained: Right Thorax: RT Posterior/PLAPS Left Thorax: LT Posterior/PLAPS Cardiac Views: N/A Other: N/A Findings (Right Thorax): RT Lung Sliding: Present RT Lung Point Sign: Absent If positive, estimated size of pneumothorax: N/A Right Pleural Findings: Normal Other right pleural findings: N/A RT Interstitium: A-Lines: Present RT Interstitium: B-Lines (>3 per view): Absent RT Pleural Effusion: Absent If RT Pleural Effusion present: N/A RT Lung Consolidation: Absent RT Air Bronchograms: N/A Other Right Thoracic Findings: N/A Findings (Left Thorax): LT Lung Sliding: Present LT Lung Point Sign: Absent If positive, estimated size of pneumothorax: N/A Left Pleural Findings: Normal Other left pleural findings: N/A LT Interstitium: A-Lines: Present LT Interstitium: B-Lines (>3 per view): Absent LT Pleural Effusion: Absent If LT Pleural Effusion present: N/A LT Lung Consolidation: Absent LT Air Bronchograms: N/A Other Left Thoracic Findings: N/A Findings - Cardiac/IVC: Cardiac Findings: N/A Other Cardiac: N/A IVC Findings: N/A Interpretation: Select all that apply: No sonographic evidence of acute pulmonarydisease Other: N/A Confirmatory Study: What confirmatory study was performed during ED patient evaluation?:No additional imaging ordered Confirmatory Study Findings/Comments:: N/A Signed by Segundo Avila on 2021-07-01 07:34 us Segundo Avila MD IMG POCT US ORDERABLES Final Result * POCT US ED ABDOMEN (06/29/2021 16:23 EDT) Anatomical Region Laterality Modality Other 06/29/2021 16:2 3 EDT Narrative 07/01/2021 7:33 EDT Study Date and Time: 2021-06-29 16:23 Study Author: Segundo Avila ED Abdomen - Adult: Indications: ?Indications for this focused Ultrasound:: Abdominal pain, Abdominal Distension ?Other indications: concern for ascites Exam Information: ?The following structures were examined as part of the FAST exam: RUQ/Pyle's Pouch, R pleural/subphrenic space, LUQ/splenorenal, L subphrenic space, Bilateral paracolic gutters ?The following structures were examined for possible bowel pathology: N/A Findings of FAST study: ?RUQ (inf pole of liver/Pyle's pouch): Fluid absent ?R lateral pleural space: Fluid Absent ?LUQ (splenorenal/subdiaphragmatic space): Fluid absent ?L lateral pleural space: Fluid absent ?Retrovesicular space: N/A ?Other Retrovesicular Findings: N/A ?Pericardial space: N/A ?IVC: N/A Findings of bowel evaluation: ?Small bowel: N/A ?Large bowel: N/A ?Other findings: N/A Interpretation: ?Perioneal free fluid: Absent ?Pericardial effusion/hemothorax: N/A ?IVC: N/A ?Small bowel obstruction: N/A ?Large bowel: N/A ?Other findings: N/A Confirmatory study: ?What confirmatory study was performed during ED patient evaluation?: No additional imaging ordered ?Confirmatory study findings or comments:: N/A Signed by Segundo Avila on 2021-07-01 07:33 Procedure Note Segundo Avila MD - 07/01/2021 Study Date and Time: 2021-06-29 16:23 Study Author: Segundo vAila ED Abdomen - Adult: Indications: Indications for this focused Ultrasound:: Abdominal pain, AbdominalDistension Other indications: concern for ascites Exam Information: The following structures were examined as part of the FAST exam:RUQ/Pyle's Pouch, R pleural/subphrenic space, LUQ/splenorenal, Lsubphrenic space, Bilateral paracolic gutters The following structures were examined for possible bowel pathology:N/A Findings of FAST study: RUQ (inf pole of liver/Pyle's pouch): Fluid absent R lateral pleural space: Fluid Absent LUQ (splenorenal/subdiaphragmatic space): Fluid absent L lateral pleural space: Fluid absent Retrovesicular space: N/A Other Retrovesicular Findings: N/A Pericardial space: N/A IVC: N/A Findings of bowel evaluation: Small bowel: N/A Large bowel: N/A Other findings: N/A Interpretation: Perioneal free fluid: Absent Pericardial effusion/hemothorax: N/A IVC: N/A Small bowel obstruction: N/A Large bowel: N/A Other findings: N/A Confirmatory study: What confirmatory study was performed during ED patient evaluation?:No additional imaging ordered Confirmatory study findings or comments:: N/A Signed by Segundo Avila on 2021-07-01 07:33 us Segundo Avila MD IMG POCT US ORDERABLES Final Result * XR CHEST 2 VIEWS (06/29/2021 16:10 EDT) Anatomical Region Laterality Modality Computed Radiogr aphy 06/29/2021 21:2 4 EDT Impressions 06/29/2021 21:24 EDT 1. ??Linear opacities in the bilateral lower lungs, likely atelectasis. 2. ??Chronic small airways disease as visualized on recent CT of the chest June 13, 2021. 3. ??No pleural effusions bilaterally. Narrative 06/29/2021 21:24 EDT XR CHEST 2 VIEWS ??06/29/2021 3:55 PM CLINICAL HISTORY/COMMENTS: fluid retention, concern for pleural effusions COMPARISON: CT of the chest June 13, 2021 and April 13, 2021. TECHNIQUE: Frontal and lateral views of the chest were performed. FINDINGS: Soft tissues and extrathoracic findings: ??No abnormalities. Bones: Degenerative changes are visualized in the bilateral acromioclavicular joints. Cardiac and mediastinal contours: Normal. Lungs: Linear opacities are seen in the bilateral lower lungs and right midlung with bronchial thickening. ?? Pleura/diaphragms: No pleural effusions are seen. No pneumothorax identified. Procedure Note Terra Rene MD MPH - 06/29/2021 XR CHEST 2 VIEWS 06/29/2021 3:55 PM CLINICAL HISTORY/COMMENTS: fluid retention, concern for pleural effusions COMPARISON: CT of the chest June 13, 2021 and April 13, 2021. TECHNIQUE: Frontal and lateral views of the chest were performed. FINDINGS: Soft tissues and extrathoracic findings: No abnormalities. Bones: Degenerative changes are visualized in the bilateralacromioclavicular joints. Cardiac and mediastinal contours: Normal. Lungs: Linear opacities are seen in the bilateral lower lungs and rightmidlung with bronchial thickening. Pleura/diaphragms: No pleural effusions are seen. No pneumothoraxidentified. IMPRESSION 1. Linear opacities in the bilateral lower lungs, likely atelectasis. 2. Chronic small airways disease as visualized on recent CT of the chestJuly 2020. 3. No pleural effusions bilaterally. us Segundo Avila MD IMG DIAGNOSTIC IMAGING ORDERABLES Final Result * EKG 12-LEAD (06/29/2021 15:07 EDT) 06/29/2021 15:0 7 EDT Narrative [facility] EKG - 07/01/2021 17:42 EDT ?[facility] ? Test Date: ?2021-06-29 Pat Name: ? PHYLISS BOOTHE ?Department: ?? ED ? Room: ? Gender: ? Female ? Weapons Designer: ?? [id number] : ?1960 ? Requested By: MONALISA BLAIR Order Number: [id number] ? Jose MD: ?? LAURENT MACK MD PhD ? Measurements Intervals ?[place] ? Rate: ? 83 ? P: ?56 MS: ? 154 ?QRS: ?51 QRSD: ? 104 ?T: ?14 QT: ? 370 ? QTc: ?437 ? Interpretive Statements SINUS RHYTHM POSSIBLE LEFT ATRIAL ENLARGEMENT Compared to ECG 06/12/2021 20:38:54 No significant changes I reviewed the tracing and have either agreed or edited the findings in this report. Electronically Signed On 07-01-2021 17:42:46 EDT by LAURENT MACK MD PhD. Procedure Note Laurent Mack MD - 07/01/2021 [facility] Test Date: 2021-06-29 Pat Name: TARA BOOTHE Department: ED Room: Gender: Female Weapons Designer: [id number] : 1960 Requested By: MONALISA BLAIR Order Number: [id number] Reading MD: LAURENT MACK [facility] Measurements Intervals [place] Rate: 83 P: 56 MS: 154 QRS: 51 QRSD: 104 T: 14 QT: 370 QTc: 437 Interpretive Statements SINUS RHYTHM POSSIBLE LEFT ATRIAL ENLARGEMENT Compared to ECG 06/12/2021 20:38:54 No significant changes I reviewed the tracing and have either agreed or edited the findings inthis report. Electronically Signed On 07-01-2021 17:42:46 EDT by ERVIN PHIPPS PhD. Wayne Talamantes MD CARDIAC ECG ORDERABLES nal Result [facility] EKG documented in this encounter Visit Diagnoses Diagnosis Fall, initial encounter- Primary Fall, initial encounter Anasarca Edema Pancytopenia (HCC-CMS) Other pancytopenia Decompensated hepatic cirrhosis (HCC-CMS) Anasarca Edema Pancytopenia (HCC-CMS) Other pancytopenia Frequent falls Personal history of fall Fluid overload Other fluid overload documented in this encounter Admitting Diagnoses Diagnosis Frequent falls Personal history of fall Fluid overload Other fluid overload documented in this encounter Administered Medications Inactive Administered Medications - up to 3 most recent administrations Medication Order MAR Action Action Date Dose Rate Site albuterol (ACCUNEB) nebulizer solution 2.5 mg 2.5 mg, nebulization, 4 TIMES DAILY, First dose (after last modification) on Tue06/30/21 at 0800, Until Discontinued, Routine Given 06/30/2021 8:00 EDT 2.5 mg albuterol (ACCUNEB) nebulizer solution 2.5 mg 2.5 mg, nebulization, EVERY 4 HOURS PRN, Starting on Tue06/30/21 at 0815, Until Tue07/02/21 at 1431, Wheezing, Routine furosemide (LASIX) injection 40 mg 40 mg, intravenous, NOW X1, 1 dose, On Tue06/29/21 at 1915, STAT Given 06/29/2021 19:36 EDT 40 mg furosemide (LASIX) injection 40 mg 40 mg, intravenous, NOW X1, 1 dose, On Tue06/30/21 at 0945, STAT Given 06/30/2021 9:57 EDT 40 mg furosemide (LASIX) injection 40 mg 40 mg, intravenous, NOW X1, 1 dose, On Tue07/01/21 at 1215, STAT Given 07/01/2021 13:02 EDT 40 mg furosemide (LASIX) tablet 20 mg 20 mg, oral, DAILY, First dose on Tue07/01/21 at 0900, Until Discontinued, Routine Given 07/01/2021 8:13 EDT 20 mg furosemide (LASIX) tablet 20 mg 20 mg, oral, DAILY, First dose on Tue07/02/21 at 1045, Until Discontinued, Routine Given 07/02/2021 10:28 EDT 20 mg HYDROmorphone (DILAUDID) tablet 2 mg 2 mg, oral, EVERY 12 HOURS PRN, Starting on Tue06/29/21 at 2109, Until Tue07/02/21 at 1431, Pain, Routine Given 07/02/2021 8:31 EDT 2 mg Given 07/01/2021 20:58 EDT 2 mg Given 07/01/2021 7:58 EDT 2 mg HYDROmorphone (DILAUDID) tablet 2 mg 2 mg, oral, Once (Time Specified), 1 dose, On Tue07/01/21 at 1700, Routine Given 07/01/2021 16:51 EDT 2 mg HYDROmorphone (PF) (DILAUDID) 0.5 mg/0.5 mL syringe 0.5 mg 0.5 mg, intravenous, NOW X1, 1 dose, On Tue06/29/21 at 1645, STAT Given 06/29/2021 17:36 EDT 0.5 mg ipratropium-albuteroL (DUONEB) 0.5 mg-3 mg(2.5 mg base)/3 mL nebulizer solution 3 mL 3 mL, nebulization, NOW X1, 1 dose, On Tue06/29/21 at 1645, STAT Given 06/29/2021 19:23 EDT 3 mL levothyroxine (SYNTHROID) tablet 25 mcg 25 mcg, oral, DAILY BEFORE BREAKFAST, First dose on Tue06/30/21 at 0700, Until Discontinued, Routine Given 07/02/2021 6:05 EDT 25 mcg Given 07/01/2021 6:09 EDT 25 mcg Given 06/30/2021 6:07 EDT 25 mcg mometasone-formoterol (DULERA) 200-5 mcg/actuation inhaler 2 Puff 2 Puff, inhalation, 2 TIMES DAILY, First dose on Tue06/29/21 at 2130, Until Discontinued Given 07/02/2021 8:20 EDT 2 Puf fs Given 07/01/2021 21:34 EDT 2 Puffs Given 07/01/2021 8:15 EDT 2 Puffs ondansetron (PF) (ZOFRAN) injection 4 mg 4 mg, intravenous, NOW X1, 1 dose, On Tue06/29/21 at 1645, STAT Given 06/29/2021 17:36 EDT 4 mg ondansetron (ZOFRAN-ODT) disintegrating tablet 4 mg 4 mg, oral, EVERY 12 HOURS PRN, Starting on Tue06/29/21 at 2211, Until Tue07/02/21 at 1431, Nausea, Routine Given 07/02/2021 9:58 EDT 4 mg pantoprazole (PROTONIX) tablet 40 mg 40 mg, oral, 2 TIMES DAILY, First dose (after last modification) on Tue06/29/21 at 2345, Until Discontinued, Routine Given 07/02/2021 8:18 EDT 40 mg Given 07/01/2021 20:58 EDT 40 mg Given 07/01/2021 8:13 EDT 40 mg sertraline (ZOLOFT) tablet 50 mg 50 mg, oral, DAILY, First dose on Tue06/30/21 at 0900, Until Discontinued, Routine Given 07/02/2021 8:18 EDT 50 mg Given 07/01/2021 8:13 EDT 50 mg Given 06/30/2021 9:57 EDT 50 mg spironolactone (ALDACTONE) tablet 50 mg 50 mg, oral, DAILY, First dose on Tue07/01/21 at 0900, Until Discontinued, Routine Given 07/02/2021 8:18 EDT 50 mg Given 07/01/2021 8:13 EDT 50 mg traZODone (DESYREL) tablet 200 mg 200 mg, oral, AT BEDTIME, First dose on Tue06/29/21 at 2130, Until Discontinued, Routine Given 07/01/2021 20:58 EDT 20 0 mg Given 06/30/2021 21:03 EDT 200 mg Given 06/29/2021 22:41 EDT 200 mg documented in this encounter Discontinued Medications Medication Sig Discontinue Reason Start Date End Da te omeprazole (PRILOSEC) 40 mg capsule Take 1 capsule by mouth 2 times daily. Patient Stopped Taking 05/11/2021 07/02/2021 documented as of this encounter Active and Recently Administered Medications Times are shown in EDT. Scheduled Medication Order 06/30/2021 07/01/2021 07/02/2021 albuterol (ACCUNEB) nebulizer solution 2.5 mg (CANCELED) 2.5 mg, nebulization, 4 TIMES DAILY, First dose (after last modification) on Tue06/30/21 at 0800, Until Discontinued, Routine 0800 (Given - Provider: Anthony Gotti, RT) furosemide (LASIX) injection 40 mg (COMPLETED) 40 mg, intravenous, NOW X1, 1 dose, On Tue06/30/21 at 0945, STAT 0957 (Given - Provider: Dana Mathews, RN) furosemide (LASIX) injection 40 mg (COMPLETED) 40 mg, intravenous, NOW X1, 1 dose, On Tue07/01/21 at 1215, STAT 1302 (Given - Provider: Angelita Fountain RN) furosemide (LASIX) tablet 20 mg (CANCELED) 20 mg, oral, DAILY, First dose on Tue07/01/21 at 0900, Until Discontinued, Routine 0813 (Given - Provider: Angeilta Fountain, KENN) furosemide (LASIX) tablet 20 mg 20 mg, oral, DAILY, First dose on Kirsten 07/02/21 at 1045, Until Discontinued, Routine 1028 (Given - Provider: Angelita Fountain RN) HYDROmorphone (DILAUDID) tablet 2 mg (COMPLETED) 2 mg, oral, Once (Time Specified), 1 dose, On Tue07/01/21 at 1700, Routine 1651 (Given - Provider: Angelita Fountain RN) levothyroxine (SYNTHROID) tablet 25 mcg 25 mcg, oral, DAILY BEFORE BREAKFAST, First dose on Tue06/30/21 at 0700, Until Discontinued, Routine 0607 (Given - Provider: Adela Cross RN) 0609 (Given - Provider: Adela Cross RN) 0605 (Given - Provider: Adela Cross RN) mometasone-formoterol (DULERA) 200-5 mcg/actuation inhaler 2 Puff 2 Puff, inhalation, 2 TIMES DAILY, First dose on Tue06/29/21 at 2130, Until Discontinued 0040 (Given - Provider: Adela Cross RN)08 (Given - Provider: Anthony Gotti RT)2118 (Given - Provider: Adela Cross RN) 08 (Given - Provider: Angelita Fountain RN)2133 (Given - Provider: Adela Cross RN) 0820 (Given - Provider: Angelita Fountain RN) nicotine (NICODERM CQ) 14 mg/24 hr patch 1 Patch 1 Patch, transdermal, DAILY, First dose on Tue06/30/21 at 0900, Until Discontinued, Routine 0956 (Not Given - Provider: Dana Mathews RN - Reason: Patient/family refused) 0814 (Not Given - Provider: Angelita Fountain RN - Reason: Patient/family refused) 0819 (Not Given - Provider: Angelita Fountain RN - Reason: Patient/family refused) pantoprazole (PROTONIX) tablet 40 mg 40 mg, oral, 2 TIMES DAILY, First dose (after last modification) on Tue06/29/21 at 2345, Until Discontinued, Routine 0040 (Given - Provider: Adela Cross RN)0956 (Given - Provider: Dana Mathews RN)210 (Given - Provider: Adela Cross RN) 0813 (Given - Provider: Angelita Fountain RN)2057 (Given - Provider: Adela Cross RN) 0818 (Given - Provider: Angelita Fountain RN) sertraline (ZOLOFT) tablet 50 mg 50 mg, oral, DAILY, First dose on Tue06/30/21 at 0900, Until Discontinued, Routine 0957 (Given - Provider: Dana Mathews RN) 08 (Given - Provider: Angelita Fountain RN) 817 (Given - Provider: nAgelita Fountain RN) spironolactone (ALDACTONE) tablet 50 mg 50 mg, oral, DAILY, First dose on Tue07/01/21 at 0900, Until Discontinued, Routine 08 (Given - Provider: Angelita Fountain RN) 08 (Given - Provider: Angelita Fountain RN) traZODone (DESYREL) tablet 200 mg 200 mg, oral, AT BEDTIME, First dose on Tue06/29/21 at 2130, Until Discontinued, Routine 2102 (Given - Provider: Adela Cross RN) 2057 (Given - Provider: Adela Cross RN) PRN Medication Order 06/30/2021 07/01/2021 07/02/2021 albuterol (ACCUNEB) nebulizer solution 2.5 mg 2.5 mg, nebulization, EVERY 4 HOURS PRN, Starting on Tue06/30/21 at 0815, Until Tue07/02/21 at 1431, Wheezing, Routine albuterol inhaler 90-180 mcg 90-180 mcg (1-2 Puff), inhalation, EVERY 4 HOURS PRN, Starting on Tue06/29/21 at 2109, Until Tue07/02/21 at 1431, Wheezing, Routine HYDROmorphone (DILAUDID) tablet 2 mg 2 mg, oral, EVERY 12 HOURS PRN, Starting on Tue06/29/21 at 2109, Until Tue07/02/21 at 1431, Pain, Routine 1058 (Given - Provider: Dana Mathews RN)220 (Given - Provider: Adela Cross RN) 0758 (Given - Provider: Angelita Fountain RN - Comment: Sirena approved pain medical corps officer early)2057 (Given - Provider: Adela Cross RN) 0831 (Given - Provider: Angelita Fountain RN) lidocaine (PF) 10 mg/mL (1 %) injection 2 mg 2 mg, intradermal, PRN, 4 doses, Starting on 06/29/21 at 2109, Until Kirsten 07/02/21 at 1431, peripheral intravenous catheter placement, Routine ondansetron (ZOFRAN-ODT) disintegrating tablet 4 mg 4 mg, oral, EVERY 12 HOURS PRN, Starting on 06/29/21 at 2211, Until Kirsten 07/02/21 at 1431, Nausea, Routine 0958 (Given - Provider: Angelita Fountain RN) documented in this encounter Orders Medications Ordered That Luc ht Not Have Been Administered Count Last Ordered Date First Ordered Date albuterol (ACCUNEB) nebulize r solution 2.5 mg 2 06/30/2021 06/29/2021 albuterol inhaler 90-180 mcg 1 06/29/2021 enoxaparin (LOVENOX) injection 40 mg 1 07/2021 furosemide (LASIX) tablet 20 mg 1 lidocaine (PF) 10 mg/mL (1 % ) injection 2 mg 1 06/29/2021 nicotine (NICODERM CQ) 14 mg /24 hr patch 1 Patch 1 06/29/2021 ondansetron (ZOFRAN-ODT) dis integrating tablet 4 mg 1 06/29/2021 pantoprazole (PROTONIX) tablet 40 mg 1 07/2021 spironolactone (ALDACTONE) tablet 50 mg 1 0 06/29/2021 Diet Count Last Ordered Date First Orde red Date DISCHARGE DIET 1 07/02/2021 Nursing Count Last Ordered Date First Orde red Date ACTIVITY INSTRUCTIONS 1 07/02/2021 BATHING INSTRUCTIONS 1 07/02/2021 CONTRAINDICATION TO ANTICOAG ULATION THERAPY 1 06/29/2021 PT Count Last Ordered Date First Orde red Date PT EVALUATION AND TREAT 1 06/30/2021 IV Count Last Ordered Date First Orde red Date IV REQUEST 1 07/01/2021 Admission Count Last Ordered Date First Orde red Date ADMIT TO INPATIENT 1 07/01/2021 INITIATE OBSERVATION STATUS 1 06/29/2021 Transfer Count Last Ordered Date First Orde red Date ED BED REQUEST 1 06/29/2021 Discharge Count Last Ordered Date First Orde red Date DISCHARGE PATIENT 1 07/02/2021 Legal Count Last Ordered Date First Orde red Date MISCELLANEOUS DISCHARGE INSTRUCTIONS 1 06/21 Equipment Count Last Ordered Date First Orde red Date GENERIC DME ORDER 1 07/02/2021 WALKER 1 07/02/2021 documented in this encounter Care Teams Photo Technologist Relationship Specialty Start Date End Date Emigdio Veronica MD [address] [place] [id number] PCP - General Internal Medicine - Primary Care 05/22/20 02/21/24 documented as of this encounter
--- OUTSIDE RECORDS SUMMARY | 2024-11-22 17:13 | XMS_ITS | Encounter Summary ---
Author Organization [facility] Address [address] [place] [address] Care Team Providers Care Marine Electrician Name Role Phone Emigdio Veronica MD Primary Care Provider + Reason for Visit * Reason Onset Date Comments Returning Call 07/09/2021 covid exposure Encounter Details Date Type Department Care Team (Late st Contact Info) Description 07/09/2021 Telephone [facility] H[facility]ology & Oncology - 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 Paige called pt and asked for pt to be tested for COVID. Pt was tested today and will wait for results. * Telephone Encounter - Zora Page - 07/09/2021 1101 EDT Patient calling, says she was exposed to covid on Tuesday. Wanted to make Dr. Paige aware. Please call back to discuss documented in this encounter Plan of Treatment Upcoming Encounters Date Type Department Care Team (Late st Contact Info) Description 01/04/2025 13:00 EST Office Visit [facility] Ophthalmology - [address] [phone] Gagandeep Rome MD [address] [place] [address], [facility] [address] [place] [phone] 02/11/2025 13:30 EDT Telemedicine [facility] Hematology & Oncology - [address] [phone] Dana Padilla MD [address] [place] [address], [facility] [address] [place] [phone] documented as of this encounter Visit Diagnoses Not on filedocumented in this encounter Additional Health Concerns Infection Onset Date Last Indicated Resolved Time R/O COVID-19 07/10/2021 07/14/2021 07/14/2021 23:3 2 EDT documented as of this encounter Care Teams Marine Electrician Relationship Specialty Start Date End Date Emigdio Veronica MD [address] [place] [phone] PCP - General Internal Medicine - Primary Care 05/22/20 02/21/24 documented as of this encounter
--- OUTSIDE RECORDS SUMMARY | 2024-11-22 17:13 | XMS_ITS | Encounter Summary ---
Author Organization [facility] Address [address] [place] [address] Care Team Providers Care Grounds/Maintenance Specialist Name Role Phone Emigdio Fernandez MD Primary Care Provider + Reason for Visit * Reason Onset Date Comments Chills 07/16/2021 Emesis 07/16/2021 Flank Pain 07/16/2021 Fatigue 07/16/2021 Encounter Details Date Type Department Care Team (Late st Contact Info) Description 07/16/2021 Telephone [facility] Adult Primary Care - [place] 2 [place], [place] [phone] Emigdio Fernandez MD 2 [place] [phone] Chills; Emesis; Flank Pain; Fatigue Social History Tobacco Use Types Packs/Day Years [...] 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 (5 years old or older) Answer Entry Date Author No 06/29/2021 21:11 EDT Barbara Cross RN documented in this encounter Miscellaneous Notes * Telephone Encounter - Karol Hoff RN - 07/17/2021 1508 EDT Updated patient about the recommendations from Dr Fernandez below. The patient indicates understanding of these issues and agrees with the plan. No barriers. * Telephone Encounter - Emigdio Fernandez MD - 07/17/2021 1452 EDT Her images reveal no acute changes and her labs appear stable. Her pain is likely chronic in natureand will have to be treated supportively. I agree with rest, hydration and continuing the current pain regiment. * Telephone Encounter - Karol Hoff RN - 07/17/2021 1431 EDT Spoke to patient who is frustrated with her experience at [facility] ED. She had 2 CT scans. I had to have the dye twice that is hard on my kidneys, they were questioning how I know I had a clot, when Iwas trying to tell them that's what was hurting. Patient plans to try to rest now. Scheduled on 07/22 with Scottie Campuzano, for a transition of care. Any further recommendations? Also see med refill request. * Telephone Encounter - Ebony Toscano - 07/17/2021 1233 EDT Pt calling back today, would like to speak w/nurse regarding her visit to the ER yesterday. * Telephone Encounter - Heike Mcleod RN - 07/16/2021 1332 EDT Call from pt to Darius Cruz. Call back to pt States she is So cold, states she feels like she has a fever. So much pain right in area where blood clot is, doubled over all morning. Pain in chest where clotis Gained 9 lbs over night Swelling ankles feet Cant able to keep anything down including medications Has a ride to ER Not feeling short of breath but states she is wheezing. Has been able to use her inhalers. Cant stop shaking No cough Is vaccinated Advised of message from dr fernandez. States she will go to ER. The patient indicates understanding of these issues and agrees with the plan. Call to ER triage. Spoke with KENN Roebrson . Advised of above. FYI to dr fernandez * Telephone Encounter - Emigdio Fernandez MD - 07/16/2021 1305 EDT Her temperature is elevated, but has yet to cross the threshold (100.4 F) for what I would call a worrisome fever. What is more concerning to me is her lack of ability to keep down food or liquids. She is at a high risk for dehydration given the increased temperature and use of diuretics though it sounds like she is not currently taking them. I think we can continue to monitor and encourage supportive care with rest and continuing to push whatever fluids she is able to tolerate. With that said if her symptoms worsen she would have to return to the ED for evaluation. * Telephone Encounter - Karol Hoff RN - 07/16/2021 1126 EDT Spoke to patient who was seen at ED on 07/14. She reports feeling worse now than when she was there.She now has a temp of 99.9. She feels the pain is becoming more focused where the clot is and less in her mid chest. She is having vomiting mostly bile last evening, dry heaves this morning, but with the increase in pain she has only been able to tolerate ice chips as even sips of nuria john istoo painful. terrible burning. She did urinate this morning after taking her diuretics, but was unable to keep down her diuretics yesterday. Endorses some SOB (was able to easily hold a conversation, but sounded weak), mild cough and chills. this fever is making me nervous, but I really don't want to go back to the ED. They just run testsand don't really do anything Patient wanted to check with Dr Fernandez if the ED was really needed. Scheduled for OV next Tuesday as follow up for ED visit, no sooner appointments available. Recommendation? * Telephone Encounter - Xuan Jimenez - 07/16/2021 1011 EDT Reason for Call: Chills, Emesis, Flank Pain, and Fatigue Summary/Symptoms: Patient reports she is really sick. She is in a lot of pain where the blood clot is. She has cold chills, and vomiting and can't keep anything down and she is totally exhausted. Shewent to the ED Tuesday07/14/21 and they told her that her kidney function is getting worse. Onset and Duration: on going Does the patient have a computer, laptop or smart phone with high speed & video capability? No If so, would they be interested in doing a video visit via Zoom? No Appointment Offered? No Xuan Jimenez 07/16/2021 10:18 documented in this encounter Plan of Treatment Upcoming Encounters Date Type Department Care Team (Late st Contact Info) Description 01/04/2025 13:00 EST Office Visit [facility] Ophthalmology - [facility] [address] [place] [address] Gagandeep Rome MD 111 [facility], Level [address] [place] [address] 02/11/2025 13:30 EDT Telemedicine [facility] Hematology & Oncology - [address] [phone] Dana Padilla MD 111 [facility], Level 2 [place] [phone] documented as of this encounter Visit Diagnoses Not on filedocumented in this encounter Care Teams Grounds/Maintenance Specialist Relationship Specialty Start Date End Date Emigdio Fernandez MD 2 [place] [phone] PCP - General Internal Medicine - Primary Care 05/22/20 02/21/24 documented as of this encounter
--- OUTSIDE RECORDS SUMMARY | 2024-11-22 17:13 | XMS_ITS | Encounter Summary ---
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 Cancer Center Hematology & Oncology - [address] [phone] Dana Padilla MD [address] [place] [address], [facility] 2 [place] [phone] documented as of this encounter Visit Diagnoses Not on filedocumented in this encounter Care Teams Stationary Equipment Mechanic Relationship Specialty Start Date End Date Emigdio Veronica MD 2 [place] [phone] PCP - General Internal Medicine - Primary Care 05/22/20 02/21/24 documented as of this encounter
--- OUTSIDE RECORDS SUMMARY | 2024-11-22 17:13 | XMS_ITS | Encounter Summary ---
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 documented in this encounter Plan of Treatment Upcoming Encounters Date Type Department Care Team (Late st Contact Info) Description 01/04/2025 13:00 EST Office Visit [facility] Ophthalmology - [address] [phone] Gagandeep Rome MD [address] [place] [address] 5 [place] [phone] 02/11/2025 13:30 EDT Telemedicine [facility] H[facility] & Oncology - [address] [phone] Dana Padilla MD [address] [place] [address] 2 [place] [address] documented as of this encounter Visit Diagnoses Not on filedocumented in this encounter Additional Health Concerns Infection Onset Date Last Indicated Resolved Time R/O COVID-19 07/10/2021 07/14/2021 07/14/2021 23:3 2 EDT R/O COVID-19 10/08/2021 10/08/2021 10/08/2021 18:1 8 EST R/O COVID-19 12/14/2021 12/14/2021 12/19/2021 22:1 5 EST documented as of this encounter Care Teams Lace Machine Operator Relationship Specialty Start Date End Date Emigdio Veronica MD 2 [place] [phone] PCP - General Internal Medicine - Primary Care 05/22/20 02/21/24 Starr Paige MD [address] [place] [phone] Hematology 10/08/21 06/09/22 documented as of this encounter
--- OUTSIDE RECORDS SUMMARY | 2024-11-22 17:13 | XMS_ITS | Encounter Summary ---
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 Pt asked to be called back at 1p.m. today since she was driving. documented in this encounter Plan of Treatment Upcoming Encounters Date Type Department Care Team (Late st Contact Info) Description 01/04/2025 13:00 EST Office Visit [facility] Ophthalmology - [address] [phone] Gagandeep Roem MD [address] [place] [address] 5 [place] [phone] 02/11/2025 13:[address] [facility] Hematology & Oncology - [address] [phone] Dana Padilla MD [address] [place] [address], [facility] 2 [place] [phone] documented as of this encounter Visit Diagnoses Not on filedocumented in this encounter Care Teams Dredge Pipe Operator Relationship Specialty Start Date End Date Emigdio Veronica MD 2 [place] [phone] PCP - General Internal Medicine - Primary Care 05/22/20 02/21/24 documented as of this encounter
--- OUTSIDE RECORDS SUMMARY | 2024-11-22 17:13 | XMS_ITS | Encounter Summary ---
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 Person tested yesterday, 07/08, returned positive. She was sitting next to this person, unmasked, within 6 feet. Did have physical contact. Patient is vaccinated as of April. Asymptomatic aside from fatigue, though was recently in hospital. Advised patient we will order COVID test. Discussed the process of drive-thru testing. She will wait to hear from COVID scheduling team. She will monitor her symptoms and let us know if she needs anything in the meantime. * Telephone Encounter - Karol Copeland - 07/09/2021 1038 EDT Reason for Call: COVID-19 Summary/Symptoms: Pt reports being exposed to someone who tested positive with COVID-19. Person tested positive yesterday (07/08/21). Pt was exposed Tuesday07/06/21. Pt and the person were sitting next to each other outside, unmasked, and within 6 ft. Pt states they also gave her a hug and a kiss on the cheek. Pt declines any new or worsening covid symptoms at this time other than feeling more fatigue. Onset and Duration? Since Tuesday07/06/21 Appointment Offered? No Karol Copeland 07/09/2021 10:41 documented in this encounter Plan of Treatment Upcoming Encounters Date Type Department Care Team (Late st Contact Info) Description 01/04/2025 13:00 EST Office Visit [facility] Ophthalmology - [address] [address] Gagandeep Rome MD 111 [facility], Level [address] [place] [phone] 02/11/2025 13:30 EDT Telemedicine [facility] Cancer Center Hematology & Oncology - [facility] [address] [place], [place] [phone] Dana Padilla MD 111 [facility] 2 [place] [address] documented as of this encounter Visit Diagnoses Diagnosis Contact with and (suspected) exposure to covid-19- Primary documented in this encounter Care Teams Abrasive Worker Relationship Specialty Start Date End Date Emigdio Veronica MD 2 [place] [phone] PCP - General Internal Medicine - Primary Care 05/22/20 02/21/24 documented as of this encounter
--- OUTSIDE RECORDS SUMMARY | 2024-11-22 17:13 | XMS_ITS | Encounter Summary ---
Author Organization [facility] Address [address] [place] [address] Care Team Providers Care Fuel Cell Designer Name Role Phone Emigdio Veronica MD Primary Care Provider + Reason for Visit * Auth/Cert Specialty Diagnoses / Procedures Referred By Serene huitron Referred To Contact Diagnoses Anasarca Pancytopenia (HCC-CMS) Fall, initial encounter Frequent falls Fluid overload Referral ID Status Reason Start Date Expiration Date Visits Re quested Visits Authorized [id number] 1 1 Encounter Details Date Type Department Care Team (Late st Contact Info) Description 06/30/2021 8:05 EDT Ancillary Procedure Vascular Surgery and Endovascular Therapy - [address] [phone] Social History Tobacco Use Types Packs/Day Years [...] 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 [...] 01/04/2025 13:00 EST Office Visit [facility] Ophthalmology - [address] [phone] Gagandeep Rome MD [address] [place] [address] 5 [place] [phone] 02/11/2025 13:30 EDT Telemedicine [email or web address] Hematology & Oncology [address] [phone] Dana Padilla MD [address] [place] [address] 2 [place] [phone] documented as of this encounter Procedures Procedure Name Priority Date/Time Associated Diagnosis Comments US LOWER VENOUS DUPLEX (DVT) BILATERAL Routine 06/30/2021 12:06 EDT documented in this encounter Results * [...] DO IMG US VASCULAR ORDERABLES Final Result documented in this encounter Visit Diagnoses Not on filedocumented in this encounter Care Teams Fuel Cell Designer Relationship Specialty Start Date End Date Emigdio Veronica MD 2 [place] [phone] PCP - General Internal Medicine - Primary Care 05/22/20 02/21/24 documented as of this encounter
--- OUTSIDE RECORDS SUMMARY | 2024-11-22 17:13 | XMS_ITS | Encounter Summary ---
Author Organization [facility] Address [address] [place] [address] Care Team Providers Care Stock Sheets Cleaner Inspector Name Role Phone Emigdio Veronica MD Primary Care Provider + Reason for Visit * Reason Onset Date Comments Appointment Related 07/03/2021 Encounter Details Date Type Department Care Team (Late st Contact Info) Description 07/03/2021 Telephone [facility] Cancer Center Hematology & Oncology - Main [place] [address] [place], [place] [phone] Starr Paige MD [address] [place] [phone] Appointment Related Social History Tobacco Use [...] Start Date 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 Date 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 [...] * Telephone Encounter - Leonora Wesley - 07/03/2021 1625 EDT cx 07/08 new appt on 07/06 documented in this encounter Plan of Treatment Upcoming Encounters Date Type Department Care Team (Late st Contact Info) Description 01/04/2025 13:00 EST Office Visit [facility] Ophthalmology - [address] [phone] Gagandeep Rome MD [address] [place] [address], [facility] 5 [place] [phone] 02/11/2025 13:30 EDT Telemedicine [facility] Hematology & Oncology - [address] [phone] Dana Padilla MD [address] [place] [address], [facility] 2 [place] [phone] documented as of this encounter Visit Diagnoses Not on filedocumented in this encounter Care Teams Stock Sheets Cleaner Inspector Relationship Specialty Start Date End Date Emigdio Veronica MD 2 [place] [phone] PCP - General Internal Medicine - Primary Care 05/22/20 02/21/24 documented as of this encounter
--- OUTSIDE RECORDS SUMMARY | 2024-11-22 17:13 | XMS_ITS | Encounter Summary ---
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 Yes 07/14/2021 22:19 EDT documented as of this encounter Functional [...] [facility] Ophthalmology - [address] [phone] Gagandeep Rome MD [address] [place] [address], [facility] 5 [place] [phone] 02/11/2025 13:30 EDT Telemedicine [facility] Cancer Center Hematology & Oncology - [address] [phone] Dana Padilla MD [address] [place] [address], [facility] 2 [place] [phone] documented as of this encounter Visit Diagnoses Not on filedocumented in this encounter Additional Health Concerns Infection Onset Date Last Indicated Resolved Time R/O COVID-19 07/10/2021 07/14/2021 07/14/2021 23:3 2 EDT documented as of this encounter Care Teams Director Traffic And Planning Relationship Specialty Start Date End Date Emigdio Veronica MD 2 [place] [phone] PCP - General Internal Medicine - Primary Care 05/22/20 02/21/24 documented as of this encounter
--- OUTSIDE RECORDS SUMMARY | 2024-11-22 17:13 | XMS_ITS | Encounter Summary ---
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 1 Inhaler 1 07/08/2021 documented in this encounter Miscellaneous Notes * Telephone Encounter - Ebony Toscano - 07/08/2021 1623 EDT Requested Prescriptions No prescriptions requested or ordered in this encounter [id number] - [place], [place] - [address] [facility] Confirmed Pharmacy? Yes Patient out of medication? Needs by tomorrow, 07.09.21 Last Refill Date: 06.20.20 Refills left? (explain exceptions requiring early refill) No Recent Visits Date Type Provider Dept 05/14/21 Office Visit Emigdio Veronica MD [place] [facility] 04/29/21 Office Visit Emigdio Veronica MD [place] [facility] 04/16/21 Office Visit Emigdio Veronica MD [place] [facility] 04/10/21 Office Visit Emigdio Veronica MD [place] [facility] 03/06/21 Office Visit Emigdio Veronica MD [place] [facility] 01/27/21 Office Visit Dom Mackay MD [place] [facility] 11/20/20 Office Visit Emigdio Veronica MD [place] [facility] 10/15/20 Office Visit Emigdio Veronica MD [place] [facility] 10/10/20 Office Visit Scottie Campuzano PA-C [place] [facility] 09/05/20 Office Visit Emigdio Veronica MD [place] [facility] Showing recent visits within past 540 days with a meds authorizing provider and meeting all other requirements Future Appointments Date Type Provider Dept 07/13/21 Appointment Scottie Campuzano PA-C [place] [facility] Showing future appointments within next 150 days with a meds authorizing provider and meeting all other requirements Future appointment: Already Scheduled Ebony Toscano 07/08/2021 16:23 documented in this encounter Plan of Treatment Upcoming Encounters Date Type Department Care Team (Late st Contact Info) Description 01/04/2025 13:00 EST Office Visit [facility] Ophthalmology - [address] [phone] Gagandeep Rome MD [address] [place] [address], [facility] 5 [place] [phone] 02/11/2025 13:30 EDT Telemedicine [facility] H[facility] & Oncology [address] [phone] Dana Padilla MD [address] [place] [address], [facility] 2 [place] [phone] documented as of this encounter Visit Diagnoses Diagnosis COPD with asthma ([facility])- Primary Chronic obstructive asthma, unspecified documented in this encounter Discontinued Medications Medication Sig Discontinue Reason Start Date End Da te SYMBICORT 160-4.5 mcg/actuation HFA aerosol inhaler inhalerIndications:COPD with asthma ([facility]) Inhale 2 Puffs as directed daily. Reorder 06/20/2020 07/08/2021 documented as of this encounter Additional Health Concerns Infection Onset Date Last Indicated Resolved Time R/O COVID-19 07/10/2021 07/14/2021 07/14/2021 23:3 2 EDT documented as of this encounter Care Teams Head Of Marketing Analytics Relationship Specialty Start Date End Date Emigdio Veronica MD 2 [place] [phone] PCP - General Internal Medicine - Primary Care 05/22/20 02/21/24 documented as of this encounter
--- OUTSIDE RECORDS SUMMARY | 2024-11-22 17:13 | XMS_ITS | Encounter Summary ---
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 Yes 07/09/2021 10:39 EDT documented as of this encounter Last Filed Vital Signs Vital Sign Reading Time Taken Comments Blood Pressure 117/57 07/06/2021 1005 EDT Pulse 73 07/06/2021 1005 EDT Temperature 36.3 ??C (97.3 ??F) 07/06/2021 1005 EDT Respiratory Rate 16 07/06/2021 1005 EDT Oxygen Saturation 98% 07/06/2021 1005 EDT Inhaled Oxygen Concentration - - Weight 94.5 kg (208 lb 4.8 oz) 07/06/2021 1005 E DT Height 163.5 cm (5' 4.37) 07/06/2021 1005 EDT Body Mass Index 35.34 07/06/2021 1005 EDT documented in this encounter Functional Status * Are you deaf or do you have serious difficulty hearing? Answer Date of Assessment Author No 06/29/2021 21:11 EDT Barbara Cross RN * Are you blind or do you have serious difficulty seeing, even when wearing glasses? Answer Date of Assessment Author No 06/29/2021 21:11 EDT Barbara Cross RN * Do you have [...] documented in this encounter Progress Notes * Carla White MD - 07/06/[address] [facility] HEMATOLOGY AND ONCOLOGY PROGRESS / FOLLOWUP NOTE: 07/06/21 16:14 DIAGNOSIS: Pancytopenia associated with liver cirrhosis and [...] CC: follow up HISTORY OF PRESENT ILLNESS: 60 y.o. y.o. years old white female with past medical history of asthma, hyperlipidemia, GERD, history of nonalcoholic fatty liver disease, history of hepatitis C as well as known decompensated livercirrhosis with portal hypertension, severe hepatosplenomegaly as well as history of hepatic encephal opathy is being transferring care from [facility] to [facility] because of relocation. Patient is following Dr. Ijeoma Smith, GI Department in [facility] for long-standing decompensated liver cirrhosis, portal hypertension and hepatic encephalopathy. She was also formerly seen by hematology oncology clinic in [facility], underwent bone marrow biopsy for pancytopenia in [...] by Dr. Dickens although then relocated to [place]. Her most recent CBC showed WBC 1.99 [...] longer seeing Dr. Smith in hepatology in [facility]. TIPS and liver transplant listing are on [...] for a follow up. She is feeling better after DC, pain is well controlled, weight is going down on lasix and spironolactone. 2 falls in the last 2 months, intermittent dark stool. No other medications/changes in current doses ROS: 10 review of system is completed [...] see 11/20/2020 Dr. Veronica H&P, (managed by Carla White MD) ??? Chronic kidney disease slow to [...] see 11/20/2020 Dr. Glenys Denton, (managed by Carla White MD) ??? Thyroid disease PAST SURGICAL HISTORY: [...] by mouth daily. 90 Tab 1 ??? hydromorphone HCl (DILAUDID ORAL) Take 2 [...] inhaler Inhale 2 Puffs as directed daily. (Patient taking differently: Inhale 2 Puffs as directed daily before breakfast. ) 1 Inhaler 11 ??? traZODone (DESYREL) 100 mg tablet Take 2 Tabs by mouth at bedtime. 180 Tab 1 No current facility-administered medications for this visit. Facility-Administered Medications Ordered in Other Visits Medication Dose Route Frequency Provider Last Rate Last Admin ??? albuterol (ACCUNEB) 2.5 mg /3 mL (0.083 %) nebulizer solution SOCIAL HISTORY: Social Connections: ??? Frequency of Communication with Friends and Family: ??? Frequency of Social Gatherings with Friends and Family: ??? Attends [employer] Services: ??? Active Member of Clubs or Organizations: ??? Attends Club or Organization Meetings: ??? Marital Status: PHYSICAL EXAMINATION: BP 117/57 Pulse 73 Temp 36.3 ??C (97.3 ??F) (Skin) Resp 16 Ht 163.5 cm (64.37) Wt 94.5 kg (208 lb 4.8 oz) SpO2 98% BMI 35.34 kg/m?? Visit is conducted by telemedicine, physical exam was not performed. LABS REVIEWED: Results for GOOD BOOTHEFRITZ Camacho ( ) as of 07/06/2021 16:17 Ref. Range 07/02/2021 11:03 WBC Latest Ref Range: 4.00 - 12.40 K/cmm 1.31 (L) RBC Latest Ref Range: 3.86 - 5.04 M/cmm 3.58 (L) Hemoglobin Latest Ref Range: 11.6 - 15.2 gm/dL 9.8 (L) HCT Latest Ref Range: 34.9 - 44.4 % 31.1 (L) MCV Latest Ref Range: 81 - 98 fl 87 MCH Latest Ref Range: 26.7 - 33.3 pg 27.4 MCHC Latest Ref Range: 32.1 - 35.9 gm/dL 31.5 (L) RDW-CV Latest Ref Range: <14.7 % 16.5 (H) RDW-SD Latest Ref Range: <50.4 fl 52.6 (H) PLT Latest Ref Range: 141 - 377 K/cmm 41 (L) MPV Latest Ref Range: 9.5 - 12.7 fl 10.1 Results for TARA BOOTHE ( ) as of 07/06/2021 16:17 Ref. Range 07/02/2021 11:03 Sodium Latest Ref Range: 136 - 145 mmol/L 137 Potassium Latest Ref Range: 3.5 - 5.0 mEq/L 4.3 Chloride Latest Ref Range: 96 - 110 mEq/L 101 CO2 Latest Ref Range: 22 - 32 mEq/L 26 BUN Latest Ref Range: 10 - 26 mg/dL 19 Creatinine Latest Ref Range: 0.52 - 1.04 mg/dL 0.94 Glucose, Serum Latest Ref Range: 70 - 100 mg/dL 136 (H) Calcium Latest Ref Range: 8.5 - 10.5 mg/dL 8.8 Calculated Calcium Latest Ref Range: 8.5 - 10.5 mg/dL 9.1 IMAGING REVIEWED: CT abdomen 04-23-2021: IMPRESSION 1. [...] diverticulosis. 5. Prior hysterectomy. ASSESSMENT AND PLAN: 60 y.o. old white female with past medical history mentioned above is back for a follow up of pancytopenia and chronic nonocclusive portal vein thrombosis: Pancytopenia: - Her pancytopenia is likely associated with underlying decompensated liver cirrhosis as well as severe hepatosplenomegaly and hypersplenism. - Patient was formerly evaluated at [facility] with subsequent bone marrow biopsy that showed no evidenceof clonal population or any maturation defects, her BMBX in April 2019 again confirmed the similar findings - labs reviewed and overall stable. We will continue to follow expectantly, for the future procedures recommend to have perioperative platelet transfusions if necessary to increase her to the safe levels. Poor response to perioperativeTPO in the past. Chronic non occlusive portal vein thrombosis: -PPX lovenox on hold for falls/intermittent darkening of the stool - will discuss at THPconference but at this point risk might outweight the bleeding and pain is currently well controlled on current pain management - pain management per PCP. Monthly labs Plan: THP discussion Labs monthly RTC in 3 months, labs, earlier if symptoms arise Carla White Hematology and Oncology I spent a total of __30 minutes on the date of this encounter meeting with the patient and reviewing documentation/coordinating care as described in the above note. All their questions were answered to their satisfaction. The patient agreed with the management plan. documented in this encounter Miscellaneous Notes * Addendum Note - Carla White MD - 07/06/2021 1000 EDTAddended by: CARLA WHITE on: 07/09/2021 17:31 Modules accepted: Orders documented in this encounter Plan of Treatment Upcoming Encounters Date Type Department Care Team (Late st Contact Info) Description 01/04/2025 13:00 EST Office Visit [facility] Ophthalmology - [address] [id number] Gagandeep Rome MD [address] [place] [address], [facility] [address] [place] [phone] 02/11/2025 13:30 EDT Telemedicine [facility] Hematology & Oncology - [address] [id number] Dana Padilla MD [address] [place] [address], [address] [place] [phone] documented as of this encounter Results * COVID-19 TESTING (07/10/2021 10:28 EDT) COVID-19 rt-PCR Result Negative Negative 07/11/2021 13:16 EDT [facility] Comment: This test has [...] developed and its performance characteristics determined by [facility]. It has not been cleared or [...] testing. This test is based on the [facility] COVID-19 Emergency Use Authorization (EUA) assay, with minor modification as defined by the FDA Performed on the [employer] 7 Pro RT-PCR System. Performing Lab [facility] Lab 07/11/2021 13:16 EDT [facility] Swab ENTIRE NASOPHARYNX / Unknown Swab / Unknown 07/10/2021 10:28 EDT 07/10/2021 10:28 EDT us Carla White MD MICROBIOLOGY - GENERAL DEMI CARDENAS Final Result [facility] [address] [place] [address] documented in this encounter Visit Diagnoses Diagnosis Pancytopenia (HCC-CMS)- Primary Other pancytopenia documented in this encounter Historical Medications * This list may reflect changes made after this encounter. hydromorphone HCl (DILAUDID ORAL) Take 2 mg by mouth every 12 hours. 09/18/2021 added in this encounter Care Teams Event Security Officer Relationship Specialty Start Date End Date Emigdio Veronica MD [address] [place] [phone] PCP - General Internal Medicine - Primary Care 05/22/20 02/21/24 documented as of this encounter
--- OUTSIDE RECORDS SUMMARY | 2024-11-22 17:13 | XMS_ITS | Encounter Summary ---
Author Organization [facility] Address [address] [place] [address] Care Team Providers Care Phlebotomy Director Name Role Phone Emigdio Veronica MD Primary Care Provider + Reason for Visit * Reason Comments Chest Pain Patient wheeled to [facility] in obvious distress, tearful in triage. States I have a blood clot in my splenic vein. Gained 8 pounds overnight. Endorses difficulty breathing. Fully vaccinated. 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 No / Unsure 07/16/2021 13:56 EDT documented as of this encounter Last Filed Vital Signs Vital Sign Reading Time Taken Comments Blood Pressure 122/66 07/16/2021 1903 EDT Pulse - - Temperature 36.7 ??C (98.1 ??F) 07/16/2021 1356 EDT Respiratory Rate 21 07/16/2021 1903 EDT Oxygen Saturation 95% 07/16/2021 1903 EDT Inhaled Oxygen Concentration - - Weight 95.3 kg (210 lb) 07/16/2021 1356 EDT Height 162.6 cm (5' 4) 07/16/2021 1356 EDT Body Mass Index 36.05 07/16/2021 1356 EDT documented in this encounter [...] this encounter Discharge Instructions * Discharge Instructions* Jennifer Kam MD MPH - 07/16/2021 19:20 EDT You are seen and evaluated here today. Your work-up was negative. At this time I feel that you are safe for discharge to home. Your CT scans did not show any acute pathology in your chest or your abdomen. You had a negative troponin. At this time I do feel you are safe for discharge to home. Pleasefollow-up with your primary care provider in the next 3 days and return to the emerge department should your symptoms change or worsen, or should you have any new concerns. * Attachments The following attachments cannot be sent through Care Everywhere. * Abdominal Pain (Pashto) * Chest Pain: Musculoskeletal (Pashto) documented in this encounter Medications at Time [...] HFA aerosol inhaler inhalerIndicatio ns:COPD with asthma ([facility]) Inhale 2 Puffs as directed daily. 1 Inhaler 1 07/08/2021 1 traZODone (DESYREL) 100 mg tablet Take 2 Tabs by mouth at bedtime. 180 Tab 1 04/10/2021 1 documented as of this encounter Discharge Disposition Disposition Code Departure Means Destination Home or Self Prison documented in this encounter ED Notes * Jef Ember - 07/16/2021 1719 EDT Assumed care of pt from [facility]. Pt resting on stretcher, call light within reach. Awaiting imaging results. VSS on continuous cardiac monitoring. * Jennifer Kam MD MPH - 07/16/2021 1700 EDT I, Eloy Hatch, am scribing for Jennifer Kam MD MPH while he/she is personally performing the service. Eloy Hatch 07/16/2021 17:01 Tara Boothe is a 60 y.o. female with PMH including cirrhosis, COPD, HUEY, asthma, anxiety, depression and thyroid disease who presents to the ED for chest pain. Care and work-up prior to sign out includes: Physical exam was significant for an extremely distressed patient clutching her LUQ.. I assumed care of patient from Karol Mejia MD with CTA abdomen pending. After I assumed care the patient had: The patient had a Angio Abdomen CT which was significant for: 1. Similar findings of a cirrhotic liver with portal hypertension, as well as the spontaneous intrahepatic portosystemic shunt. 2. No significant interval change in degree of nonocclusive thrombus in the main portal and splenicvein. No new thrombus. 3. Marked splenomegaly, also unchanged from comparison. 4. Mild interval increase in degree of intrahepatic biliary ductal dilatation with similar prominence of the common bile duct measuring up to 9 mm the patient status post cholecystectomy. This finding is of uncertain clinical significance and may be senescent. Patient had CT that was obtained, reviewed, and interpreted by myself along with a radiologist. Please see radiology report for further details. The patient had Angio Chest CT which was significant for No evidence of pulmonary embolism or otheracute abnormality in the chest. Patient had CT that was obtained, reviewed, and interpreted by myself along with a radiologist. Please see radiology report for further details. repeat abdominal exam was was normal. Patient had labs that were reviewed independently by myself, significant for low WBC at 2.37 (increaased from 1.2 two days ago and 1.3 three weeks ago). The patient had a negative troponin today and a negative troponin yesterday. The patient was discharged home after reevaluation, reassuring imaging, reassuring labs, improved symptoms. The patient was given instructions to follow-up with their PCP as needed. The patient was receptive to this plan. Prior to discharge usual and customary precautions were reviewed with the patient and/or family including follow-up instructions and reasons to return to the Emergency Department if condition worsens, does not improve as expected, or other new concerns arise. Final diagnoses: Atypical chest pain Left upper quadrant abdominal pain This documentation is recorded by Eloy Hatch acting as Scribe under the direction and presence ofJennifer Kam MD MPH. Jennifer Kam MD MPH: I personally performed the services recorded by the scribe in my presence. I confirm the scribe's documentation has been reviewed by me to accurately and completely record my work, treatment, procedures, and medical decision making. * Bobby Narayanan RN - 07/16/2021 1651 EDT US guided IV being attempted for the CTA chest * Karol Mejia MD - 07/16/2021 1429 EDT This patient received an evaluation and medical screening exam for emergent medical conditions at the [facility] on 07/16/2021 Scribe attestation: This documentation is recorded by Mouna Brock acting as Scribe under the direction and presence of Karol Mejia MD. Karol Mejia MD: I personally performed the services recorded by the scribe in my presence. I confirm the scribe's documentation has been reviewed by me to accurately and completely record my work, treatment, procedures, and medical decision making. HPI Tara Boothe is a 60 y.o. female with PMH including cirrhosis, COPD, HUEY, asthma, anxiety, depression and thyroid disease who presents to the ED for chest pain. 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 Tara reports that she was recently taken off of blood thinners due to a low plateletcount. Tara says that she takes dilaudid at home for chronic pain and she is on Lasix. She reports that she gained 8-9 lb last night. She denies cough, trouble breathing other than from pain, frontal or lower abdominal pain, dysuria. Upon chart review, Tara visited the ED on 07/16 at which point imaging revealed Cirrhotic liver with stigmata of portal hypertension including marked splenomegaly and a spontaneous portosystemic shunt in hepatic segment 8. No ascites. 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 New right-sided hydroureteronephrosis with tapering of the distal ureterwhere it crosses the iliac vessels. Atherosclerosis. Prior right anterior hernia repair. Unchanged left adrenal nodule. History was provided by: patient and patient's medical record Patient's pertinent PMH, FH, SH were reviewed and updated PRN. ROS A 10-point review of systems was performed. The patient answered negative to all of the questions with the exceptions of those explicitly detailed as positives in the HPI. Pertinent negatives are also explicitly stated. Physical Exam Vital Signs Temp: 36.7 ??C (98.1 ??F) Temp src: Oral Heart Rate: 86 BPM Resp: 17 SpO2: 93 % BP: 109/61 BP MAP: 75 mm Hg BP Device: BP Machine BP Patient Position: Sitting BP Cuff Location: Right arm O2 Device: None (Room air) Nursing notes and vital signs were reviewed. Constitutional: Very uncomfortable, clutching left upper abdomen, tearful. Eyes: Pupils equal and reactive to light, no scleral icterus Lungs: Clear to auscultation, no increased WOB. Mouth: Moist oral mucosa without apparent lesions Heart: RRR without MRG Abdomen: Soft, but ttp throughout, most notable LUQ Skin: No overt rashes on exposed skin Extremities: Moving spontaneously, warm and well perfused. Neuro: Grossly neurologically intact with normal speech Psych: No agitation or overt thought disorder Medical Decision Making Multiple etiologies were considered for this patient's symptoms including mesenteric ischemia, ACS,Spenic infarct, SBO, anxiety. Laboratory Results Labs Reviewed COMPLETE BLOOD COUNT AND DIFFERENTIAL - Abnormal Result Value Status WBC 2.37 (*) Final RBC 4.03 Final Hemoglobin 11.4 (*) Final HCT 34.2 (*) Final MCV 85 Final MCH 28.3 Final MCHC 33.3 Final RDW-CV 15.8 (*) Final RDW-SD 49.1 Final PLT 43 (*) Final MPV 10.5 Final Neutrophils 82.7 Final Lymphocytes 7.6 Final Monocytes 8.9 Final Eosinophils 0.4 Final Basophils 0.0 Final Immature Grans 0.4 Final Absolute Neutrophils 1.96 (*) Final Absolute Lymphocytes 0.18 (*) Final Absolute Monocytes 0.21 Final Absolute Eosinophils 0.01 (*) Final Absolute Basophils 0.00 (*) Final Absolute Immature Grans 0.01 Final Type of Differential: Auto Final COMPREHENSIVE METABOLIC PANEL (CMP) - Abnormal Sodium 136 Final Potassium 5.2 (*) Final Chloride 101 Final CO2 Total 23 Final Glucose 106 (*) Final BUN 18 Final Creatinine 1.19 (*) Final eGFR 50 (*) Final Total Protein 7.4 Final Albumin 4.4 Final Alkaline Phosphatase 104 Final AST 32 Final ALT 15 Final Bilirubin, Total 1.4 (*) Final Calcium 9.2 Final Calculated Calcium 8.9 Final LACTIC ACID - Normal Lactic Acid 1.6 Final LIPASE - Normal Lipase 43 Final TROPONIN I - Normal Troponin I <0.034 Final Narrative: The results of this assay can be falsely lowered due to the consumption of Biotin. NT PRO BNP - Normal NT-pro BNP 73 Final MAGNESIUM - Normal Magnesium 1.8 Final HOLD LAVENDER TOP Hold Hold Final HOLD SST Hold Hold Final Data Interpretation An EKG was obtained an independently interpreted: Simus rhythm, rate of 85, no st elevation or depression Imaging obtained was reviewed and independently interpreted: none obtained at this time Laboratory results independently reviewed, significant for: platelet 43, up from 38 previously Procedures Procedures ED Course A medical screening exam was performed. Tara Boothe is a 60 y.o. female with PMH including cirrhosis, COPD, HUEY, asthma, anxiety, depression and thyroid disease who presents to the ED for worsening chest pain. Physical exam was significant for an extremely distressed patient clutching her LUQ.. Patient was signed out pending medication prescription, images and labs. While under my care in the Emergency Department, the patient's pain was managed to an adequate level weighing risk vs. benefit of medication. Clinical Impression Final diagnoses: None Disposition Signed out (see progress Notes) Disposition decisions were made weighing risks and benefits of hospitalization vs. outpatient treatment, the risk for further decompensation, and the patient's wishes. ten scale. At the end of my care of the patient, the patient's pain was 7 on a zero to ten scale. Any further pain treatment will be at the discretion of the provider following up with the patient based on their clinical assessment. * aLurent Ernandez RN - 07/16/2021 1421 EDT 12 Lead EKG Performed by LAURENT ERNANDEZ RN and shown to Karol Mejia MD. documented in this encounter Plan of Treatment Upcoming Encounters Date Type Department Care Team (Late st Contact Info) Description 01/04/2025 13:00 EST Office Visit [facility] Ophthalmology - [address] [phone] Gagandeep Rome MD [address] [place] [address], [address] [place] [phone] 02/11/2025 13:[address] [facility] Hematology & Oncology [address] [address] Dana Padilla MD [address] [place] [address], [address] [place] [phone] documented as of this encounter Procedures Procedure Name Priority Date/Time Associated Diagnosis Comments ECG REPORT - SCANNED 07/20/2021 10:24 EDT ECG REPORT - SCANNED 07/20/2021 9:[address] ANGIO CHEST PE PROTOCOL STAT 07/16/2021 18:07 EDT POCT US ED GUIDANCE PIV 07/16/2021 16:[address] ANGIO ABDOMEN STAT 07/16/2021 16:1 3 EDT HOLD SST Routine 07/16/2021 14:45 EDT HOLD LAVENDER TOP Routine 07/16/2021 14: 45 EDT TROPONIN I STAT Add-on 07/16/2021 14:45 EDT LACTIC ACID STAT 07/16/2021 14:45 EDT COMPLETE BLOOD COUNT AND DIFFERENTIAL STAT Add-on 07/16/2021 14:45 EDT NT PRO BNP STAT Add-on 07/16/2021 14:45 EDT MAGNESIUM STAT Add-on 07/16/2021 14:45 EDT LIPASE STAT Add-on 07/16/2021 14:45 EDT COMPREHENSIVE METABOLIC PANEL (CMP) STAT Add-on 07/16/2021 14:45 EDT EKG 12-LEAD STAT 07/16/2021 14:16 EDT documented in this encounter Results * ECG REPORT - SCANNED (07/20/2021 10:24 EDT) 07/20/2021 10:2 4 EDT us Scan 2 Services Account Manager PROCEDURE/MINOR SURGICAL OR DERABLES Final Result * ECG REPORT - SCANNED (07/20/2021 9:41 EDT) 07/20/2021 9:41 EDT us Scan 2 Services Account Manager PROCEDURE/MINOR SURGICAL OR DERABLES Final Result * CT ANGIO CHEST PE PROTOCOL (07/16/2021 18:07 EDT) Anatomical Region Laterality Modality Chest Computed Tomogra phy 07/16/2021 20:2 4 EDT Impressions 07/16/2021 20:24 EDT No evidence of pulmonary embolism or other acute abnormality in the chest. Unchanged mild, diffuse parenchymal abnormality that probably represents chronic edema. I have personally reviewed the images and the above interpretation and agree with the findings. Narrative 07/16/2021 20:[address] ANGIO CHEST PE PROTOCOL ??07/16/2021 5:25 PM Clinical History/Comments: Shortness of breath Technique: A contrast-enhanced helical CT acquisition of the chest from apices through the lung bases was performed with a reconstructed slice thickness of 0.9 mm with overlapping 0.45 mm intervals following the intravenous administration of 75-100 cc of 350- 370 mg% nonionic contrast injected at a rate of 4-5 cc/second. ??A small test bolus was used for image acquisition. Scans were reviewed on a dedicated PACS workstation for analysis. The radiologist reviewed and/or adjusted the images for the 3D/MIP rendering on an independent workstation, as necessary, prior to interpretation. Exam description: CTA of the chest Comparison: CTA chest 04/13/2021. Additional CT scans dating back to 07/17/2015. Findings: Opacification of the pulmonary vasculature is good. No acute or chronic emboli are seen within the pulmonary arterial vasculature. Lower neck: No abnormalities. Chest wall soft tissues: No abnormalities. Mediastinum and leobardo: No new or enlarging lymph nodes. Stable mildly enlarged mediastinal lymph nodes; these have been present since at least 2014. Esophagus is normal in caliber. Heart and mediastinal vasculature: Cardiac chambers are normal in size. Mild coronary artery calcification. No pericardial abnormality. Large airways: ??Patent. Lungs: ??Very minimal interlobular septal thickening in the apices and bases, very faint upper lung predominant groundglass opacity, and mild mosaic attenuation in the lower lung zone, probably indicating mild pulmonary edema, similar to the previous study. Mild platelike atelectasis in the lower lobes, lingula, and right middle lobe. Pleura: No abnormalities. Upper abdomen (limited to upper abdomen, not optimized for abdominal imaging): Please refer to report for CTA abdomen and pelvis performed one hour prior. Bones: ??No significant abnormalities. Procedure Note Serene Bolton MD - 07/16/2021 CT ANGIO CHEST PE PROTOCOL 07/16/2021 5:25 PM Clinical History/Comments: Shortness of breath Technique: A contrast-enhanced helical CT acquisition of the chest from apicesthrough the lung bases was performed with a reconstructed slice thicknessof 0.9 mm with overlapping 0.45 mm intervals following the intravenousadministration of 75-100 cc of 350- 370 mg% nonionic contrast injected at arate of 4-5 cc/second. A small test bolus was used for image acquisition.Scans were reviewed on a dedicated PACS workstation for analysis. Theradiologist reviewed and/or adjusted the images for the 3D/MIP renderingon an independent workstation, as necessary, prior to interpretation. Exam description: CTA of the chest Comparison: CTA chest 04/13/2021. Additional CT scans dating back to 07/17/2015. Findings: Opacification of the pulmonary vasculature is good. No acute or chronicemboli are seen within the pulmonary arterial vasculature. Lower neck: No abnormalities. Chest wall soft tissues: No abnormalities. Mediastinum and leobardo: No new or enlarging lymph nodes. Stable mildlyenlarged mediastinal lymph nodes; these have been present since at [id number]. Esophagus is normal in caliber. Heart and mediastinal vasculature: Cardiac chambers are normal in size.Mild coronary artery calcification. No pericardial abnormality. Large airways: Patent. Lungs: Very minimal interlobular septal thickening in the apices andbases, very faint upper lung predominant groundglass opacity, and mildmosaic attenuation in the lower lung zone, probably indicating mildpulmonary edema, similar to the previous study. Mild platelike atelectasisin the lower lobes, lingula, and right middle lobe. Pleura: No abnormalities. Upper abdomen (limited to upper abdomen, not optimized for abdominalimaging): Please refer to report for CTA abdomen and pelvis performed onehour prior. Bones: No significant abnormalities. IMPRESSION No evidence of pulmonary embolism or other acute abnormality in thechest. Unchanged mild, diffuse parenchymal abnormality that probably representschronic edema. I have personally reviewed the images and the above interpretation andagree with the findings. us Jennifer Kam MD MPH IMG CT ORDERABLES Final Result * POCT US ED GUIDANCE PIV (07/16/2021 16:32 EDT) Anatomical Region Laterality Modality Other 07/16/2021 16:3 2 EDT Narrative 07/18/2021 6:58 EDT Study Date and Time: 2021-07-16 16:32 Study Author: Lon Pierre ED Procedural Guidance - PIV: Indications: ?Indications for this focused Ultrasound:: Evaluation for a potential access site and selected vessel patency, Failed or difficult IV access ?Other Indications:: N/A Location: ?Laterality:: Right ?Site of peripheral line:: Superficial antecubital/forearm vein ?Other site:: N/A Complications: ?Procedure Complications:: None ?Other Complications:: N/A Interpretation: ?Exam interpretation:: Successful US-guided peripheral line insertion ?Other interpretation:: N/A Confirmatory Study: ?What confirmatory study was performed during patient ED evaluation?: IV patency confirmed by flushing without resistance or tissue infiltration ?Comments: Confirmation study not done. IV flushes and draws without resistance. Signed by Lon Pierre on 2021-07-16 17:09 Physician Attestation: I reviewed and independently interpreted these images. ??I was present for the brown and critical portions of the imaging and agree with the findings as documented. Final Signature by Wyane Talamantes on 2021-07-18 06:58 Procedure Note Wayne Talamantes MD - 07/18/2021 Study Date and Time: 2021-07-16 16:32 Study Author: Lon Pierre ED Procedural Guidance - PIV: Indications: Indications for this focused Ultrasound:: Evaluation for a potentialaccess site and selected vessel patency, Failed or difficult IV access Other Indications:: N/A Location: Laterality:: Right Site of peripheral line:: Superficial antecubital/forearm vein Other site:: N/A Complications: Procedure Complications:: None Other Complications:: N/A Interpretation: Exam interpretation:: Successful US-guided peripheral line insertion Other interpretation:: N/A Confirmatory Study: What confirmatory study was performed during patient ED evaluation?:IV patency confirmed by flushing without resistance or tissueinfiltration Comments: Confirmation study not done. IV flushes and draws withoutresistance. Signed by Lon Pierre on 2021-07-16 17:09 Physician Attestation: I reviewed and independently interpreted theseimages. I was present for the brown and critical portions of the imagingand agree with the findings as documented. Final Signature by Wayne Talamantes on 2021-07-18 06:58 us Wayne Talamantes MD IMG POCT US ORDERABLES Fi nal Result * CT ANGIO ABDOMEN (07/16/2021 16:13 EDT) Anatomical Region Laterality Modality Body, Abdomen Computed Tomogra phy 07/16/2021 16:4 1 EDT Impressions 07/16/2021 16:41 EDT 1. Similar findings of a cirrhotic liver with portal hypertension, as well as the spontaneous intrahepatic portosystemic shunt. 2. No significant interval change in degree of nonocclusive thrombus in the main portal and splenic vein. No new thrombus. 3. Marked splenomegaly, also unchanged from comparison. 4. Mild interval increase in degree of intrahepatic biliary ductal dilatation with similar prominence of the common bile duct measuring up to 9 mm the patient status post cholecystectomy. This finding is of uncertain clinical significance and may be senescent. I have personally reviewed the images and the above interpretation and agree with the findings. Narrative 07/16/2021 16:[address] ANGIO ABDOMEN ??07/16/2021 3:50 PM Signs and Symptoms/Comments: ?? h/o splenic vein thrombus, with new severe LUQ pain, off anticoagulation bc of thrombocytopenia Technique: Prior to the intravenous injection of contrast media, precontrast CT scans were obtained through the abdomen and pelvis. Then, utilizing a multislice CT scanner, and following an intravenous bolus injection of nonionic contrast media, arterial and venous phase CT angiography of the abdomen and pelvis was performed. ??Scanning was performed from the lower lungs to the lesser trochanters. 3-D reconstructions were performed utilizing the coronal and sagittal MPR, radial CPR, and volume rendering algorithms on an independent work station. Comparison: Recent CT June 13, 2021. Findings: Vascular: There is atherosclerotic disease throughout the abdominal aorta and extending into both common iliac arteries. The imaged internal/external iliac arteries are widely patent. The celiac, superior mesenteric, and inferior mesenteric arteries are patent. The renal arteries are patent. Grossly unchanged appearance of a dilated main portal vein and splenic vein with stable appearing nonocclusive thrombus. No new thrombus is identified. Nonvascular: Lower chest: The imaged portions of the lower chest are clear aside from areas of scarring or atelectasis. Hepatobiliary: Nodular appearance of the liver is unchanged. There has been no significant interval change in degree of intrahepatic biliary ductal dilatation with prominence of the common bile duct to the level of the ampulla measuring up to 9 mm without calcified choledocholithiasis seen. Redemonstrated spontaneous intrahepatic portosystemic shunt. The patient status post cholecystectomy. Spleen, pancreas, adrenal glands: Grossly unchanged degree of splenomegaly without additional significant abnormality identified. Stable left adrenal nodule. Kidneys, ureters, bladder: The kidneys enhance symmetrically. There is no hydronephrosis. Bowel: There similar degree of evident thickening of nondistended gastric antrum and proximal duodenum. No evidence of bowel obstruction as far as imaged. Peritoneal cavity / Subperitoneal space: No organized or drainable collection or free air is far as imaged. Lymphovascular: No pathologically enlarged lymph nodes are identified. Abdominal wall: Prior abdominal wall surgical changes are again seen with clips and mesh. Calcification seen in the soft tissues overlying the gluteal musculature is unchanged, possibly related to prior medication injection. Musculoskeletal: No acute osseous abnormality or destructive osseous lesion is far as imaged. Procedure Note Ant Yoo MD - 07/16/2021 CT ANGIO ABDOMEN 07/16/2021 3:50 PM Signs and Symptoms/Comments: h/o splenic vein thrombus, with new severe LUQ pain, off anticoagulationbc of thrombocytopenia Technique: Prior to the intravenous injection of contrast media, precontrast CT scanswere obtained through the abdomen and pelvis. Then, utilizing a multisliceCT scanner, and following an intravenous bolus injection of nonioniccontrast media, arterial and venous phase CT angiography of the abdomenand pelvis was performed. Scanning was performed from the lower lungs tothe lesser trochanters. 3-D reconstructions were performed utilizing thecoronal and sagittal MPR, radial CPR, and volume rendering algorithms vin independent work station. Comparison: Recent CT June 13, 2021. Findings: Vascular: There is atherosclerotic disease throughout the abdominal aorta andextending into both common iliac arteries. The imaged internal/externaliliac arteries are widely patent. The celiac, superior mesenteric, and inferior mesenteric arteries arepatent. The renal arteries are patent. Grossly unchanged appearance of a dilated main portal vein and splenicvein with stable appearing nonocclusive thrombus. No new thrombus isidentified. Nonvascular: Lower chest: The imaged portions of the lower chest are clear aside fromareas of scarring or atelectasis. Hepatobiliary: Nodular appearance of the liver is unchanged. There hasbeen no significant interval change in degree of intrahepatic biliaryductal dilatation with prominence of the common bile duct to the level ofthe ampulla measuring up to 9 mm without calcified choledocholithiasisseen. Redemonstrated spontaneous intrahepatic portosystemic shunt. Thepatient status post cholecystectomy. Spleen, pancreas, adrenal glands: Grossly unchanged degree of splenomegalywithout additional significant abnormality identified. Stable left adrenalnodule. Kidneys, ureters, bladder: The kidneys enhance symmetrically. There is nohydronephrosis. Bowel: There similar degree of evident thickening of nondistended gastricantrum and proximal duodenum. No evidence of bowel obstruction as far asimaged. Peritoneal cavity / Subperitoneal space: No organized or drainablecollection or free air is far as imaged. Lymphovascular: No pathologically enlarged lymph nodes are identified. Abdominal wall: Prior abdominal wall surgical changes are again seen withclips and mesh. Calcification seen in the soft tissues overlying thegluteal musculature is unchanged, possibly related to prior medicationinjection. Musculoskeletal: No acute osseous abnormality or destructive osseouslesion is far as imaged. IMPRESSION 1. Similar findings of a cirrhotic liver with portal hypertension, as wellas the spontaneous intrahepatic portosystemic shunt. 2. No significant interval change in degree of nonocclusive thrombus inthe main portal and splenic vein. No new thrombus. 3. Marked splenomegaly, also unchanged from comparison. 4. Mild interval increase in degree of intrahepatic biliary ductaldilatation with similar prominence of the common bile duct measuring up to9 mm the patient status post cholecystectomy. This finding is of uncertainclinical significance and may be senescent. I have personally reviewed the images and the above interpretation andagree with the findings. Karol Mejia MD IMG CT ORDERABLES Final Resul t * MAGNESIUM (07/16/2021 14:45 EDT) [facility] Magnesium 1.8 1.7 - 2.8 mg/dL 07/16/2021 17:16 EDT [facility] Comment:Slight hemolysis rell ntified, interpret with caution as results may be affected due to hemolysis. Blood VENOUS BLOOD / Unknown Venipuncture / Unknown 07/16/2021 14:45 EDT 07/16/2021 14:49 EDT Result [facility] Jennifer Kam MD MPH CHEMISTRY & BLOOD GAS O RDERABLES Final Result Performing Organization Address [facility] Co de Phone Number [facility] [address] [place] [address] * NT PRO BNP (07/16/2021 14:45 EDT) [facility] NT-pro BNP 73 <125 pg/mL 07/16/2021 17:24 EDT [facility] Comment:The results of this assay can be falsely lowered due to consumption of Biotin. Blood VENOUS BLOOD / Unknown Venipuncture / Unknown 07/16/2021 14:45 EDT 07/16/2021 14:49 EDT Jennifer Kam MD MPH CHEMISTRY & BLOOD GAS O RDERABLES Final Result Performing Organization Address [facility] Co de Phone Number [facility] [address] [place] [address] * TROPONIN I (07/16/2021 14:45 EDT) [facility] Troponin I (ng/mL) <0.034 <0.034 ng/mL 07/16/2021 17:30 EDT [facility] Comment:Slight hemolysis rell ntified, interpret with caution as results may be affected due to hemolysis. Blood VENOUS BLOOD / Unknown Venipuncture / Unknown 07/16/2021 14:45 EDT 07/16/2021 14:49 EDT Narrative [facility] - 07/16/2021 17:30 EDT The results of this assay can be falsely lowered due to the consumption of Biotin. us Jennifer Kam MD MPH CHEMISTRY & BLOOD GAS O RDERABLES Final Result Performing Organization Address City/[facility]/ZIP Co de Phone Number [facility] [address] [place] [address] * LIPASE (07/16/2021 14:45 EDT) Pathologist [facility] Lipase 43 <251 U/L 07/16/2021 16:31 EDT [facility] Blood VENOUS BLOOD / Unknown Venipuncture / Unknown 07/16/2021 14:45 EDT 07/16/2021 14:49 EDT Jennifer Kam MD MPH CHEMISTRY & BLOOD GAS O RDERABLES Final Result Performing Organization Address [facility] Co de Phone Number [facility] [address] [place] [address] * (ABNORMAL) COMPREHENSIVE METABOLIC PANEL (CMP) (07/16/2021 14:45 EDT) Pathologist [facility] Sodium 136 136 - 145 mmol/L 07/16/2021 15:41 EDT [facility] Potassium 5.2(H) 3.5 - 5.0 mEq/L 07/16/2021 15:41 EDT [facility] Comment:Slight hemolysis rell ntified, interpret with caution as hemolysis will elevate potassium result. Chloride 101 96 - 110 mEq/L 07/16/2021 15:41 EDT [facility] CO2 Total 23 22 - 32 mEq/L 07/16/2021 15:41 EDT [facility] Glucose 106(H) 70 - 100 mg/dL 07/16/2021 15:41 [facility] BUN 18 10 - 26 mg/dL 07/16/2021 15:41 [facility] Comment: Slight hemolysis identified, interpret with caution as results may be affected due to hemolysis. Creatinine 1.19(H) 0.52 - 1.04 mg/dL 07/16/2021 15:41 [facility] eGFR 50(L) >60 mL/min/1.7 3m2 07/16/2021 15:41 [facility] Comment:eGFR calculated usclemente coppola CKD-EPI equation for non- Americans. Multiply eGFR by 1.16 for patients. Total Protein 7.4 6.3 - 8.2 g/dL 07/16/2021 15:41 [facility] Comment:Slight hemolysis rell ntified, interpret with caution as results may be affected due to hemolysis. Albumin 4.4 3.4 - 4.9 g/dL 07/16/2021 15:41 [facility] Comment:Slight hemolysis rell ntified, interpret with caution as results may be affected due to hemolysis. Alkaline Phosphatase 104 38 - 126 U/L 07/16/2021 15:41 [facility] Comment:Slight hemolysis rell ntified, hemolysis will decrease ALKP result. Interpret with caution as results may be affected due to hemolysis. AST 32 15 - 46 U/L 07/16/2021 15:41 [facility] Comment:Slight hemolysis rell ntified, interpret with caution as results may be affected due to hemolysis. ALT 15 <35 U/L 07/16/2021 15:41 [facility] Bilirubin, Total 1.4(H) <1.4 mg/dL 07/16/20 15:41 [facility] Calcium 9.2 8.5 - 10.5 mg/dL 07/16/2021 15:41 [facility] Calculated Calcium 8.9 8.5 - 10.5 mg/dL 07/16/2021 15:41 [facility] Comment:Slight hemolysis rell ntified, interpret with caution as results may be affected due to hemolysis. Blood VENOUS BLOOD / Unknown Venipuncture / Unknown 07/16/2021 14:45 EDT 07/16/2021 14:49 EDT us Karol Mejia MD CHEMISTRY & BLOOD GAS ORDERAB LES Final Result [facility] [address] [place] [address] * (ABNORMAL) COMPLETE BLOOD COUNT AND DIFFERENTIAL (07/16/2021 14:45 EDT) WBC 2.37(L) 4.00 - 12.40 K/cmm 07/16/2021 15:06 [facility] RBC 4.03 3.86 - 5.04 M/cmm 07/16/2021 15:06 [facility] Hemoglobin 11.4(L) 11.6 - 15.2 gm/dL 07/16/2021 15:06 [facility] HCT 34.2(L) 34.9 - 44.4 % 07/16/2021 15:06 [facility] MCV 85 81 - 98 fl 07/16/2021 15:06 [facility] MCH 28.3 26.7 - 33.3 pg 07/16/2021 15:06 [facility] MCHC 33.3 32.1 - 35.9 gm/dL 07/16/2021 15:06 [facility] RDW-CV 15.8(H) <14.7 % 07/16/2021 15:06 [facility] RDW-SD 49.1 <50.4 fl 07/16/2021 15:06 [facility] PLT 43(L) 141 - 377 K/cmm 07/16/2021 15:06 [facility] MPV 10.5 9.5 - 12.7 fl 07/16/2021 15:06 [facility] % Neutrophils 82.7 % 07/16/2021 15:06 [facility] % Lymphocytes 7.6 % 07/16/2021 15:06 [facility] % Monocytes 8.9 % 07/16/2021 15:06 [facility] % Eosinophils 0.4 % 07/16/2021 15:06 [facility] % Basophils 0.0 % 07/16/2021 15:06 [facility] % Immature Grans 0.4 % 07/16/20 15:06 [facility] Absolute Neutrophils 1.96(L) 2.20 - 8.85 K/cmm 07/16/2021 15:06 [facility] Absolute Lymphocytes 0.18(L) 1.09 - 3.30 K/cmm 07/16/2021 15:06 [facility] Absolute Monocytes 0.21 0.10 - 0.80 K/cmm 07/16/2021 15:06 [facility] Absolute Eosinophils 0.01(L) 0.03 - 0.61 K/cmm 07/16/2021 15:06 [facility] ABS Basophils 0.00(L) 0.01 - 0.11 K/cmm 07/16/2021 15:06 [facility] Absolute Immature Grans 0.01 0.00 - 0.06 K/cmm 07/16/2021 15:06 [facility] Type of Differential: Auto 07/16/2021 15:06 [facility] Blood VENOUS BLOOD / Unknown Venipuncture / Unknown 07/16/2021 14:45 EDT 07/16/2021 14:49 EDT us Karol Mejia MD PACKAGES & DNA PROBE ORDERABL ES Final Result [facility] [address] [place] [address] * HOLD SST (07/16/2021 14:45 EDT) Hold Hold 07/16/2021 16:01 [facility] Blood VENOUS BLOOD / Unknown Venipuncture / Unknown 07/16/2021 14:45 EDT 07/16/2021 14:49 EDT Karol Mejia MD LAB INFO SERVICE AND SUPPORT & PHONE RESULT Final Result Performing Organization Address [facility]/ZIP Co de Phone Number [facility] [address] [place] [address] * HOLD LAVENDER TOP (07/16/2021 14:45 EDT) Hold Hold 07/16/2021 16:01 EDT [facility] Blood VENOUS BLOOD / Unknown Venipuncture / Unknown 07/16/2021 14:45 EDT 07/16/2021 14:49 EDT Karol Mejia MD LAB INFO SERVICE AND SUPPORT & PHONE RESULT Final Result Performing Organization Address [facility] Co de Phone Number [facility] [address] [place] [address] * LACTIC ACID (07/16/2021 14:45 EDT) Lactic Acid 1.6 <=2.0 mmol/L 07/16/2021 15:04 EDT [facility] Blood VENOUS BLOOD / Unknown Venipuncture / Unknown 07/16/2021 14:45 EDT 07/16/2021 14:49 EDT Karol Mejia MD CHEMISTRY & BLOOD GAS ORDERAB LES Final Result Performing Organization Address [facility]/ZIP Co de Phone Number [facility] [address] [place] [address] * EKG 12-LEAD (07/16/2021 14:16 EDT) 07/16/2021 14:1 6 EDT Narrative [facility] EKG - 07/20/2021 9:34 EDT ?[facility] Emergency ? Test Date: ?2021-07-16 Pat Name: ? PHYLISS BOOTHE ?Department: ?? ED ? Room: ? Gender: ? Female ? Acupressurist: ?? [id number] : ?1960 ? Requested By: ANNALISA RAMOS ARNIE Order Number: [id number] ? Reading MD: ?? TRACE PERSAUD MD ? Measurements Intervals ?[place] ? Rate: ? 85 ? P: ?56 IA: ? 151 ?QRS: ?63 QRSD: ? 93 ? T: ?29 QT: ? 352 ? QTc: ?420 ? Interpretive Statements SINUS RHYTHM Compared to ECG 07/14/2021 22:23:05 No significant changes I reviewed the tracing and have either agreed or edited the findings in this report. Electronically Signed On 07-20-2021 9:34:02 EDT by EDITH PERSAUD MD. Procedure Note Edith Persaud MD - 07/20/2021 [facility] Emergency Test Date: 2021-07-16 Pat Name: TARA BOOTHE Department: ED Room: Gender: Female Acupressurist: [id number] : 1960 Requested By: ANNALISA ROME Order Number: [id number] Reading MD: EDITH PERSAUD MD Measurements Intervals [place] Rate: 85 P: 56 IA: 151 QRS: 63 QRSD: 93 T: 29 QT: 352 QTc: 420 Interpretive Statements SINUS RHYTHM Compared to ECG 07/14/2021 22:23:05 No significant changes I reviewed the tracing and have either agreed or edited the findings inthis report. Electronically Signed On 07-20-2021 9:34:02 EDT by EDITH MACHADO. Sal Hubbard MD CARDIAC ECG ORDERABLES Final Result [facility] EKG documented in this encounter Visit Diagnoses Diagnosis Atypical chest pain- Primary Other chest pain Left upper quadrant abdominal pain documented in this encounter Administered Medications Inactive Administered Medications - up to 3 most recent administrations Medication Order MAR Action Action Date Dose Rate Site HYDROmorphone (PF) (DILAUDID) 0.5 mg/0.5 mL syringe 1 mg 1 mg, intravenous, NOW X1, 1 dose, On Kirsten 07/16/21 at 1500, STAT Given 07/16/2021 15:02 EDT 1 mg HYDROmorphone (PF) (DILAUDID) 0.5 mg/0.5 mL syringe 1 mg 1 mg, intravenous, NOW X1, 1 dose, On Kirsten 07/16/21 at 1630, Routine Given 07/16/2021 16:20 EDT 1 mg iohexoL (OMNIPAQUE 350) solution 100 mL 100 mL, intravenous, Once in imaging, 1 dose, Starting on Kirsten 07/16/21 at 1548, Until Kirsten 07/16/21 at 1601, Routine, Imaging Protocol Orders Given 07/16/2021 16:01 EDT 95 mL iohexoL (OMNIPAQUE 350) solution 100 mL 100 mL, intravenous, Once in imaging, 1 dose, Starting on Kirsten 07/16/21 at 1753, Until Kirsten 07/16/21 at 2138, Routine, Imaging Protocol Orders iohexoL (OMNIPAQUE 350) solution 100 mL 100 mL, intravenous, Once in imaging, 1 dose, Starting on Kirsten 07/16/21 at 1756, Until Kirsten 07/16/21 at 1809, Routine, Imaging Protocol Orders Given 07/16/2021 18:09 EDT 75 mL documented in this encounter Active and Recently Administered Medications Times are shown in EDT. Scheduled Medication Order 07/14/2021 07/15/2021 07/16/2021 HYDROmorphone (PF) (DILAUDID) 0.5 mg/0.5 mL syringe 1 mg (COMPLETED) 1 mg, intravenous, NOW X1, 1 dose, On Kirsten 07/16/21 at 1500, STAT 1502 (Given - Provid er: Bobby Narayanan RN) HYDROmorphone (PF) (DILAUDID) 0.5 mg/0.5 mL syringe 1 mg (COMPLETED) 1 mg, intravenous, NOW X1, 1 dose, On Kirsten 07/16/21 at 1630, Routine 1620 (Given - Provid er: Myriam Haas RN) iohexoL (OMNIPAQUE 350) solution 100 mL (COMPLETED) 100 mL, intravenous, Once in imaging, 1 dose, Starting on Kirsten 07/16/21 at 1548, Until Kirsten 07/16/21 at 1601, Routine, Imaging Protocol Orders 1601 (Given - Provid er: Lc Mendez) iohexoL (OMNIPAQUE 350) solution 100 mL 100 mL, intravenous, Once in imaging, 1 dose, Starting on Kirsten 07/16/21 at 1753, Until Kirsten 07/16/21 at 2138, Routine, Imaging Protocol Orders iohexoL (OMNIPAQUE 350) solution 100 mL (COMPLETED) 100 mL, intravenous, Once in imaging, 1 dose, Starting on Kirsten 07/16/21 at 1756, Until Kirsten 07/16/21 at 1809, Routine, Imaging Protocol Orders 1809 (Given - Provid er: Dolores Mtz) documented in this encounter Orders Medications Ordered That Luc ht Not Have Been Administered Count Last Ordered Date First Ordered Date iohexoL (OMNIPAQUE 350) solution 100 mL 1 0 07/16/2021 documented in this encounter Care Teams Phlebotomy Director Relationship Specialty Start Date End Date Emigdio Veronica MD [address] [place] [phone] PCP - General Internal Medicine - Primary Care 05/22/20 02/21/24 documented as of this encounter
--- OUTSIDE RECORDS SUMMARY | 2024-11-22 17:13 | XMS_ITS | Encounter Summary ---
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 Will have [facility] reschedule social work appointment today to post discharge. .. Adult Primary Care [address], [address], [place] Total Time: 5 min care coord Referral: NA Follow up: [facility] Admin please reschedule with patient Status: Active documented in this encounter Plan of Treatment Upcoming Encounters Date Type Department Care Team (Late st Contact Info) Description 01/04/2025 13:00 EST Office Visit [facility] Ophthalmology - [address] [id number] Gagandeep Rome MD [address] [place] [address] [address] [place] [phone] 02/11/2025 13:30 EDT Telemedicine [facility] Hematology & Oncology - [address] [phone] Dana Padilla MD [address] [place] [address], [facility] [address] [place] [phone] documented as of this encounter Visit Diagnoses Not on filedocumented in this encounter Care Teams Material Requirements Planning Manager Relationship Specialty Start Date End Date Emigdio Veronica MD [address] [place] [phone] PCP - General Internal Medicine - Primary Care 05/22/20 02/21/24 documented as of this encounter
--- OUTSIDE RECORDS SUMMARY | 2024-11-22 17:14 | XMS_ITS | Encounter Summary ---
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 Answer Date of Assessment Author No 04/23/2021 13:50 Lynn Hall RN * Are you blind or do you have serious difficulty seeing, even when wearing glasses? Answer Date of Assessment Author No 04/23/2021 13:50 Lynn Hall RN * Do you have serious difficulty walking or climbing stairs? (5 years old or older) Answer Date of Assessment Author No 04/23/2021 13:50 Lynn Hall RN * Do you have difficulty dressing or bathing? (5 years old or older) Answer Date of Assessment Author No 04/23/2021 13:50 Lynn Hall RN * Because of a physical, mental, or emotional condition, do you have difficulty doing errands alone such as visiting a doctor's office or shopping? (15 years old or older) Answer Date of Assessment Author No 04/23/2021 13:50 Lynn Hall RN documented as of this encounter Mental Status * Because of a physical, mental, or emotional condition, do you have serious difficulty concentrating, remembering, or making decisions? (5 years old or older) Answer Entry Date Author No 04/23/2021 13:50 Lynn Hall RN documented in this encounter Plan of Treatment Upcoming Encounters Date Type Department Care Team (Late st Contact Info) Description 01/04/2025 13:00 EST Office Visit [facility] Ophthalmology - [address] [phone] Gagandeep Rome MD [address] [place] [address], [facility] [address] [place] [phone] 02/11/2025 13:30 EDT Telemedicine [facility] Hematology & Oncology - [address] [phone] Dana Padilla MD [address] [place] [address], [address] [place] [phone] documented as of this encounter Visit Diagnoses Not on filedocumented in this encounter Care Teams Meter Reading Clerk Relationship Specialty Start Date End Date Emigdio Veronica MD [address] [place] [phone] PCP - General Internal Medicine - Primary Care 05/22/20 02/21/24 documented as of this encounter
--- OUTSIDE RECORDS SUMMARY | 2024-11-22 17:14 | XMS_ITS | Encounter Summary ---
Author Organization [facility] Address [address] [place] [address] Care Team Providers Care Painter Helper Sign Name Role Phone Emigdio Veronica MD Primary Care Provider + Reason for Visit * Reason Comments Other Encounter Details Date Type Department Care Team (Late st Contact Info) Description 06/13/[address] 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 No / Unsure 06/12/2021 20:31 EDT documented as of this encounter Functional Status * Are you deaf or do you have serious difficulty hearing? Answer Date of Assessment Author No 04/23/2021 13:50 EDT Lynn Monroe RN * Are you blind or do you have serious difficulty seeing, even when wearing glasses? Answer Date of Assessment Author No 04/23/2021 13:50 EDLnyn Vivas RN * Do you have serious difficulty walking or climbing stairs? (5 years old or older) Answer Date of Assessment Author No 04/23/2021 13:50 Lynn Hall RN * Do you have difficulty dressing or bathing? (5 years old or older) Answer Date of Assessment Author No 04/23/2021 13:50 EDT Lynn Monroe RN * Because of a physical, mental, or emotional condition, do you have difficulty doing errands alone such as visiting a doctor's office or shopping? (15 years old or older) Answer Date of Assessment Author No 04/23/2021 13:50 EDT Lynn Monroe RN documented as of this encounter Mental Status * Because of a physical, mental, or emotional condition, do you have serious difficulty concentrating, remembering, or making decisions? (5 years old or older) Answer Entry Date Author No 04/23/2021 13:50 EDT Lynn Monroe RN documented in this encounter Ordered Prescriptions Prescription Sig Dispense Quantity Refills Last Filled Start Date End Date spironolactone (ALDACTONE) 50 mg tablet TAKE 1 TABLET BY MOUTH EVERY DAY 30 Tablet 06/15/2021 07/28/2021 documented in this encounter Miscellaneous Notes * Telephone Encounter - Son Zavala RN - 06/15/2021 1826 EDT Medication(s) Requested: spironolactone [facility] out of medication? Unknown Last Refill Date: 04/16/21 Last Visit Date with Ordering Provider: 05/14/21 Next Non-Acute Visit Date Scheduled with Care Team: Yes. SON ZAVALA RN 06/15/2021 18:27 documented in this encounter Plan of Treatment Upcoming Encounters Date Type Department Care Team (Late st Contact Info) Description 01/04/2025 13:00 EST Office Visit [facility] Ophthalmology - [address] [phone] Gagandeep Rome MD [address] [place] [address], [facility] 5 [place] [phone] 02/11/2025 13:30 EDT Telemedicine [facility] Hematology & Oncology [address] [phone] Dana Padilla MD [address] [place] [address], [facility] 2 [place] [address] documented as of this encounter Visit Diagnoses Not on filedocumented in this encounter Discontinued Medications Medication Sig Discontinue Reason Start Date End Da te spironolactone (ALDACTONE) 50 mg tablet Take 1 Tab by mouth daily. 04/16/2021 06/15/2021 documented as of this encounter Care Teams Painter Helper Sign Relationship Specialty Start Date End Date Emigdio Veronica MD [address] [place] [phone] PCP - General Internal Medicine - Primary Care 05/22/20 02/21/24 documented as of this encounter
--- OUTSIDE RECORDS SUMMARY | 2024-11-22 17:14 | XMS_ITS | Encounter Summary ---
Author Organization [facility] Address [address] [place] [address] Care Team Providers Care Employment Director Name Role Phone Emigdio Veronica MD Primary Care Provider + Encounter Details Date Type Department Care Team (Late st Contact Info) Description 05/28/2021 Orders Only [facility] Hematology & Oncology - [facility] [address] [place] [address] Gricelda Nuno, KENN Thrombocytopenia ([facility]-CMS) (Primary Dx); Portal vein thrombosis; Pancytopenia (HCC-CMS) Social History Tobacco Use Types Packs/Day [...] PHQ-2 Answer Date Recorded PHQ-2 SUBTOTAL 0 02/11/2021 Hunger Vital Sign Answer Date Recorded Within [...] 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 No / Unsure 05/28/2021 10:13 EDT documented as of this encounter Functional [...] Lynn Monroe RN documented in this encounter Plan of Treatment Upcoming Encounters Date Type Department Care Team (Late st Contact Info) Description 01/04/2025 13:00 EST Office Visit [facility] Ophthalmology - [address] [phone] Gagandeep Rome MD [address] [place] [address], Level [address] [place] [phone] 02/11/2025 13:30 EDT Telemedicine [facility] Hematology & Oncology - [address] [phone] Dana Padilla MD [address] [place] [address], Level [address] [place] [address] documented as of this encounter Results * (ABNORMAL) COMPLETE BLOOD COUNT AND DIFFERENTIAL (05/28/2021 10:28 EDT) WBC 1.24(L) 4.00 - 12.40 K/cmm 05/28/2021 11:18 EDT [facility] RBC 3.71(L) 3.86 - 5.04 M/cmm 05/28/2021 11:18 T [facility] Hemoglobin 10.5(L) 11.6 - 15.2 gm/dL 05/28/2021 11:18 EDT [facility] HCT 32.4(L) 34.9 - 44.4 % 05/28/2021 11:18 T [facility] MCV 87 81 - 98 fl 05/28/2021 11:18 EDT [facility] MCH 28.3 26.7 - 33.3 pg 05/28/2021 11:18 EDT [facility] MCHC 32.4 32.1 - 35.9 gm/dL 05/28/2021 11:18 EDT [facility] RDW-CV 15.8(H) <14.7 % 05/28/2021 11:18 EDT [facility] RDW-SD 50.1 <50.4 fl 05/28/2021 11:18 EDT [facility] PLT 38(L) 141 - 377 K/cmm 05/28/2021 11:18 EDT [facility] MPV 10.3 9.5 - 12.7 fl 05/28/2021 11:18 EDT [facility] Type of Differential: Manual 05/28/2021 11:18 EDT [facility] Blood VENOUS BLOOD / Unknown Venipuncture / Unknown 05/28/2021 10:28 EDT 05/28/2021 11:02 EDT us Starr Paige MD PACKAGES & DNA PROBE ORDERA BLES Final Result [facility] [address] [place] [address] documented in this encounter Visit Diagnoses Diagnosis Thrombocytopenia (HCC-CMS)- Primary Thrombocytopenia, unspecified Portal vein thrombosis Pancytopenia (HCC-CMS) Other pancytopenia documented in this encounter Care Teams Employment Director Relationship Specialty Start Date End Date Emigdio Veronica MD [address] [place] [phone] PCP - General Internal Medicine - Primary Care 05/22/20 02/21/24 documented as of this encounter
--- OUTSIDE RECORDS SUMMARY | 2024-11-22 17:14 | XMS_ITS | Encounter Summary ---
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 Not [...] of Assessment Author No 04/23/2021 13:50 EDT yLnn Monroe RN * Are you blind or [...] Date of Assessment Author No 04/23/2021 13:50 EDLynn Vivas RN documented as of this encounter Mental [...] EST Office Visit [facility] Ophthalmology - [address] [phone] Gagandeep Rome MD [address] [place] [address] 5 [place] [phone] 02/11/2025 13:30 EDT Telemedicine [facility] Hematology & Oncology - [address] [phone] Dana Padilla MD [address] [place] [address] 2 [place] [phone] documented as of this encounter Visit Diagnoses Not on filedocumented in this encounter Care Teams Manager Concrete Relationship Specialty Start Date End Date Emigdio Veronica MD [address] [place] [phone] PCP - General Internal Medicine - Primary Care 05/22/20 02/21/24 documented as of this encounter
--- OUTSIDE RECORDS SUMMARY | 2024-11-22 17:14 | XMS_ITS | Encounter Summary ---
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 (15 years old or older) Answer Date of Assessment Author No 04/23/2021 13:50 EDT Fer, Em kami, RN documented as of this encounter Mental Status * Because of a physical, mental, or emotional condition, do you have serious difficulty concentrating, remembering, or making decisions? (5 years old or older) Answer Entry Date Author No 04/23/2021 13:50 EDT Lynn Monroe RN documented in this encounter Miscellaneous Notes * Telephone Encounter - Emigdio Veronica MD - 06/16/2021 1019 EDT I was under the impression she already had a socially responsible investment adviser she was seeing. I can place a new referral to T though. * Telephone Encounter - Xuan Jimenez - 06/16/2021 0952 EDT Deja PT [facility] and patient feels thatshe does not need PT services so she declined. Patient did report that she is having difficulty getting her weekly blood draw done because of transportation issues. Would like a referral to Social work to be able to help patient to get access to transportation for blood draws. Patient does have Medicaid and they could work on seeing if patient is eligible for Choices for Care Program. documented in this encounter Plan of Treatment Upcoming Encounters Date Type Department Care Team (Late st Contact Info) Description 01/04/2025 13:00 EST Office Visit [facility] Ophthalmology - [address] [phone] Gagandeep Rome MD [address] [place] [address], Level [address] [place] [phone] 02/11/2025 13:30 EDT Telemedicine [facility] Hematology & Oncology [address] [phone] Dana Padilla MD [address] [place] [address], Level [address] [place] [phone] documented as of this encounter Visit Diagnoses Diagnosis Financial difficulties- Primary Inadequate material resources documented in this encounter Care Teams Voip Engineer Relationship Specialty Start Date End Date Emigdio Veronica MD [address] [place] [phone] PCP - General Internal Medicine - Primary Care 05/22/20 02/21/24 documented as of this encounter
--- OUTSIDE RECORDS SUMMARY | 2024-11-22 17:14 | XMS_ITS | Encounter Summary ---
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 No / Unsure 06/18/2021 10:08 EDT documented as of this encounter Functional [...] Miscellaneous Notes * Telephone Encounter - Cris Stoll, KENN - 06/22/2021 1831 EDT spironolactone (ALDACTONE) 50 mg tablet [[id number]] ?? Order Details Dose, Route, Frequency: As Directed Dispense Quantity: 30 Tablet Refills: 0 ?? Sig: TAKE 1 TABLET BY MOUTH EVERY DAY ?? Start Date: 06/15/21 End Date: -- Written Date: 06/15/21 documented in this encounter Plan of Treatment Upcoming Encounters Date Type Department Care Team (Late st Contact Info) Description 01/04/2025 13:00 EST Office Visit [facility] Ophthalmology - [address] [phone] Gagandeep Rome MD [address] [place] [address] 5 [place] [phone] 02/11/2025 13:30 EDT Telemedicine [facility] Hematology & Oncology - [address] [phone] Dana Padilla MD [address] [place] [address], [facility] 2 [place] [phone] documented as of this encounter Visit Diagnoses Not on filedocumented in this encounter Care Teams Scleroscope Tester Relationship Specialty Start Date End Date Emigdio Veronica MD [address] [place] [phone] PCP - General Internal Medicine - Primary Care 05/22/20 02/21/24 documented as of this encounter
--- OUTSIDE RECORDS SUMMARY | 2024-11-22 17:14 | XMS_ITS | Encounter Summary ---
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 [...] EST Office Visit [facility] Ophthalmology - [address] [phone] Gagandeep Rome MD [address] [place] [address] 5 [place] [phone] 02/11/2025 13:30 EDT Telemedicine [facility] Hematology & Oncology - [address] [phone] Dana Padilla MD [address] [place] [address] 2 [place] [phone] documented as of this encounter Visit Diagnoses Not on filedocumented in this encounter Care Teams Infection Preventionist Relationship Specialty Start Date End Date Emigdio Veronica MD 2 [place] [phone] PCP - General Internal Medicine - Primary Care 05/22/20 02/21/24 documented as of this encounter
--- OUTSIDE RECORDS SUMMARY | 2024-11-22 17:14 | XMS_ITS | Encounter Summary ---
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 I have signed for a new order that she can get done next week or at her next routine blood draw. * Telephone Encounter - Noemi Hall - 06/25/2021 0941 EDT Looks like she had cbc this morning * Telephone Encounter - Emigdio Mehta MD - 06/25/2021 0826 EDT We have not done standing BMPs in the past. It's not an unreasonable request to verify that her kidney function is stable on her current diuretics though. Has she already provided the CBC blood draw?If so then I can try to add on a BMP when it results today or tomorrow. If she has not gone to the lab yet then I can add a new order * Telephone Encounter - Noemi Hall - 06/25/2021 0820 EDT Reason for Call: Labs Only Summary/Symptoms: patient states she normally has a standing order weekly for cbc and cmp. States that cmp comes from you? Only cbc was done today documented in this encounter Plan of Treatment Upcoming Encounters Date Type Department Care Team (Late st Contact Info) Description 01/04/2025 13:00 EST Office Visit [facility] Ophthalmology - [address] [phone] Gagandeep Rome MD [address] [place] [address], [facility] 5 [place] [phone] 02/11/2025 13:30 EDT Telemedicine [facility] Hematology & Oncology - [address] [phone] Dana Padilla MD [address] [place] [address], [facility] 2 [place] [address] documented as of this encounter Results * (ABNORMAL) BASIC METABOLIC PANEL (BMP) (07/28/2021 17:18 EDT) Sodium 139 136 - 145 mmol/L 07/28/2021 17:39 EDT [facility] Potassium 4.2 3.5 - 5.0 mEq/L 07/28/2021 17:39 EDT [facility] Chloride 100 96 - 110 mEq/L 07/28/2021 17:39 EDT [facility] CO2 Total 28 22 - 32 mEq/L 07/28/2021 17:39 EDT [facility] Glucose 149(H) 70 - 100 mg/dL 07/28/2021 17:39 EDT [facility] Calcium 9.0 8.5 - 10.5 mg/dL 07/28/2021 17:39 EDT [facility] Calculated Calcium 9.2 8.5 - 10.5 mg/dL 07/28/2021 17:39 EDT [facility] BUN 13 10 - 26 mg/dL 07/28/2021 17:39 EDT [facility] Creatinine 1.04 0.52 - 1.04 mg/dL 07/28/2021 17:39 EDT [facility] eGFR 58(L) >60 mL/min/1.7 3m2 07/28/2021 17:39 EDT [facility] Comment:eGFR calculated lobito coppola CKD-EPI equation for non- Americans. Multiply eGFR by 1.16 for patients. Blood VENOUS BLOOD / Unknown Venipuncture / Unknown 07/28/2021 17:18 EDT 07/28/2021 17:22 EDT us Emigdio Mehta MD CHEMISTRY & BLOOD GAS OR DERABLES Final Result [facility] [address] [place] [address] documented in this encounter Visit Diagnoses Diagnosis MUSA (acute kidney injury) ([facility])- Primary Acute kidney failure, unspecified documented in this encounter Care Teams Alterations Workroom Clerk Relationship Specialty Start Date End Date Emigdio Mehta MD [address] [place] [phone] PCP - General Internal Medicine - Primary Care 05/22/20 02/21/24 documented as of this encounter
--- OUTSIDE RECORDS SUMMARY | 2024-11-22 17:14 | XMS_ITS | Encounter Summary ---
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 She will need a new script. Going to [facility] documented in this encounter Plan of Treatment Upcoming Encounters Date Type Department Care Team (Late st Contact Info) Description 01/04/2025 13:00 EST Office Visit [facility] Ophthalmology - [address] [phone] Gagandeep Rome MD [address] [place] [address], [facility] 5 [place] [phone] 02/11/2025 13:30 EDT Telemedicine [facility] Hematology & Oncology - [address] [phone] Dana Padilla MD [address] [place] [address], [facility] 2 [place] [phone] documented as of this encounter Visit Diagnoses Diagnosis Lower extremity edema- Primary Edema documented in this encounter Orders Equipment Count Last Ordered Date First Orde red Date GENERIC DME ORDER 1 06/23/2021 documented in this encounter Care Teams Buckle Sorter Relationship Specialty Start Date End Date Emigdio Veronica MD 2 [place] [phone] PCP - General Internal Medicine - Primary Care 05/22/20 02/21/24 documented as of this encounter
--- OUTSIDE RECORDS SUMMARY | 2024-11-22 17:14 | XMS_ITS | Encounter Summary ---
Author Organization [facility] Address [address] [place] [address] Care Team Providers Care Military Source Operations Officer Name Role Phone Emigdio Veronica MD Primary Care Provider + Reason for Visit * Reason Comments Telemedicine Video Visit Encounter Details Date Type Department Care Team (Late st Contact Info) Description 05/28/2021 10:40 EDT Telemedicine [facility] Hematology & Oncology - [address] [phone] Brenda Joseph, SUPERVISOR PUBLICATIONS [address] [facility], [address] [place] [address] Pancytopenia (HCC-CMS) (Primary Dx); Portal vein thrombosis Social History Tobacco Use [...] 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 No / Unsure 05/28/2021 10:13 EDT documented as of this encounter Last Filed Vital Signs Vital Sign Reading Time Taken Comments Blood Pressure 109/57 05/28/2021 1040 EDT Pulse 77 05/28/2021 1040 EDT Temperature 35.8 ??C (96.4 ??F) 05/28/2021 1040 EDT Respiratory Rate 16 05/28/2021 1040 EDT Oxygen Saturation 95% 05/28/2021 1040 EDT Inhaled Oxygen Concentration - - Weight 93 kg (205 lb) 05/28/2021 1040 EDT Height 163.5 cm (5' 4.37) 05/28/2021 1040 EDT Body Mass Index 34.78 05/28/2021 1040 EDT documented in this encounter Functional Status [...] Lynn Hall RN documented in this encounter Progress Notes * Brenda Joseph APRN - 05/28/2021 1040 EDT DATE: 05/28/21 The concept of ???Telemedicine?? has been described [...] patient???s medical or mental health care. The visit was conducted via Zoom. TELEMEDICINE VIDEO VISIT Today's visit was provided through telemedicine video conferencing: The location of the patient : Clinic Exam Room The location of the provider: Home The following staff and their role did participate in today's encounter visit: Brenda Joseph APRN DIAGNOSIS: Pancytopenia associated with liver cirrhosis and portal hypertension with hypersplenism. Chronic non occlusive portal vein thrombosis CURRENT THERAPY: Lovenox 40 mg SC daily since 04-23-2021 PRIOR THERAPY: Perioperative lusutrombopag oral: 3 mg [...] plt count increased up to 68K CC: Follow-up HISTORY OF PRESENT ILLNESS: (Adopted from Dr. Paige): 60 y.o. y.o. years old white female with past medical history of asthma, hyperlipidemia, GERD, history of nonalcoholic fatty liver disease, history of hepatitis C as well as known decompensated livercirrhosis with portal hypertension, severe hepatosplenomegaly as well as history of hepatic encephal opathy is being transferring care from [facility] to [facility] because of relocation. Patient is following Dr. Ijeoma Smith, GI Department in [facility] for long-standing decompensated liver cirrhosis, portal hypertension and hepatic encephalopathy. She was also formerly seen by hematology oncology clinic in [facility], underwent bone marrow biopsy for pancytopenia [...] by Dr. Dickens although then relocated to [place]. Her most recent CBC showed WBC 1.99 [...] longer seeing Dr. Smith in hepatology in [facility]. TIPS and liver transplant listing are on [...] nausea and PO dilaudid PRN for pain INTERVAL HISTORY: Tara returns for follow-up. She continues to take Lovenox 40 mg subcutaneous daily. She reports that she bleeds easily if she cuts herself but has not had any spontaneous bleeding symptoms. She has some bruising on her abdomen where she self injects. She has not required platelet transfusions recently, although her most recent CBC is from 05/08. She reports continued abdominal discomfort but this is controlled on hydromorphone twice a day. She sometimes does not take her evening dose. She reports her weight is stable today after her PCP increased her furosemide to 40 mg daily. She continuesto experience discoloration in her lower extremities, particularly in the evenings. She recently had an arterial ultrasound with ABIs. ROS: The remainder of a 10-point review of systems, as filled out on the patient's symptom report form, is otherwise negative. PAST MEDICAL HISTORY: Past Medical History: Diagnosis Date ??? Anemia ??? Anxiety ??? Asthma 12/10/2020 currently not taking - mild persistent - see dr. Veronica 11/20/2021 ??? Bleeding disorder ([facility]) ??? Bursitis right shoulder ??? C. difficile colitis 07/25/2015 Hospitalized after kidney stone removal ??? Chronic ITP (idiopathic thrombocytopenia) ([facility]) 12/10/2020 - see 11/20/2020 Dr. Veronica H&P, (managed by Starr Paige MD) ??? Chronic kidney disease slow to come back ??? Cirrhosis of liver (HCC-CMS) ??? Clotting disorder (HCC-CMS) ??? Community acquired pneumonia january 2021 ??? COPD exacerbation (HCC-CMS) 04/26/2020 ??? Depression ??? Drug-seeking behavior Per Dr Amelia Tijerina and notes from [facility] patient misconstrued information to [...] (HCC-CMS) 12/10/2020 - see 11/20/2020 Dr. Veronica HTammy, [...] DAY NEEDED (Patient not taking: Reported on 05/28/2021) ??? albuterol 90 mcg/actuation inhaler Inhale 1-2 Puffs as directed every 4 hours as needed for Wheezing. 1 Inhaler 0 ??? albuterol 90 mcg/actuation inhaler Inhale 2 Puffs as directed every 4 hours as needed. (Patientnot taking: Reported on 05/14/2021) ??? enoxaparin (LOVENOX) 40 mg/0.4 mL injection Inject 40 mg into the skin daily for 30 days. 30 Syringe 5 ??? furosemide (LASIX) 20 mg tablet Take 1 Tab by mouth daily. 90 Tab 1 ??? HYDROmorphone (DILAUDID) 2 mg tablet Take 1 Tablet by mouth every 12 hours as needed for up to 28 days for Pain. Daily Max: 4 mg 56 Tablet 0 ??? levothyroxine (SYNTHROID) 25 mcg tablet Take 1 Tab by mouth daily. Unknown dose (Patient takingdifferently: Take 25 mcg by mouth daily before breakfast. ) 90 Tab 3 ??? magnesium oxide (MAG-OX) 400 mg (241.3 mg magnesium) tablet Take 1 Tab by mouth daily. (Patientnot taking: Reported on 05/28/2021) 200 Tab 3 ??? omeprazole (PRILOSEC) 40 mg capsule Take 1 capsule by mouth 2 times daily. 60 capsule 1 ??? ondansetron (ZOFRAN) 4 mg tablet Take 1 Tab by mouth 2 times daily as needed for Nausea. 60 Tab3 ??? OXYGEN-AIR DELIVERY SYSTEMS MISC 2 L by misc (non-drug; combo route) route at bedtime. ??? sertraline (ZOLOFT) 50 mg tablet Take 1 Tab by mouth daily. 90 Tab 1 ??? spironolactone (ALDACTONE) 50 mg tablet Take 1 Tab by mouth daily. 30 Tab 1 ??? SYMBICORT 160-4.5 mcg/actuation HFA aerosol [...] Gatherings with Friends and Family: ??? Attends [employer] Services: ??? Active Member of Clubs or Organizations: ??? Attends Club or Organization Meetings: ??? Marital Status: PHYSICAL EXAMINATION: BP 109/57 Pulse 77 Temp 35.8 ??C (96.4 ??F) (Tympanic) Resp 16 Ht 163.5 cm (64.37) Wt 93kg (205 lb) SpO2 95% BMI 34.78 kg/m?? General: Well- appearing, in no acute distress. Alert and oriented to person, place, date and time. HEENT: Normocephalic. Resp: No distress noted, breathing comfortably on room air. Skin: No rashes noted. LABS: Pending from today. IMAGING REVIEWED: CT abdomen 04-23-2021: IMPRESSION 1. [...] thickening. 4. Colonic diverticulosis. 5. Prior hysterectomy. ASSESSMENT: Tara Yun is a 60 y.o.female with a history of pancytopenia due to decompensated cirrhosis and hepatosplenomegaly and a recently diagnosed non- occlusive portal vein thrombosis. She has remained on enoxaparin 40 mg subcutaneous daily since 04/23/21. Per Dr. Paige, she will need 3-6 months of anticoagulation. She will also need repeat imaging in the near future. For now, she is not experiencing acute bleeding issues on therapy. Her last CBC was from 05/08, and her platelets at that time were 56,000. We will repeat this today. I think it's reasonable to monitor her CBC weekly while on anticoagulation given her thrombocytopenia, and she agrees with this plan. She'll follow-up with us in 4 weeks. PLAN: 1. Continue Lovenox 40 mg subcutaneous daily. 2. Weekly CBCs to monitor platelet count. Continue to monitor renal function while on Lovenox- BMP drawn today. 3. She remains on hydromorphone 2 mg po bid for abdominal discomfort. 4. Smoking cessation encouraged. 5. Follow-up with Dr. Paige/ADONAY in 4 weeks. Brenda Joseph NP (Annie) Hematology Oncology documented in this encounter Plan of Treatment Upcoming Encounters Date Type Department Care Team (Late st Contact Info) Description 01/04/2025 13:00 EST Office Visit [facility] Ophthalmology - [address] [phone] Gagandeep Rome MD [address] [place] [address] 5 [place] [phone] 02/11/2025 13:30 EDT Telemedicine [facility] Hematology & Oncology - [address] [phone] Dana Padilla MD [address] [place] [address], [facility] 2 [place] [phone] documented as of this encounter Visit Diagnoses Diagnosis Pancytopenia (HCC-CMS)- Primary Other pancytopenia Portal vein thrombosis documented in this encounter Care Teams Military Source Operations Officer Relationship Specialty Start Date End Date Emigdio Veronica MD [address] [place] [phone] PCP - General Internal Medicine - Primary Care 05/22/20 02/21/24 documented as of this encounter
--- OUTSIDE RECORDS SUMMARY | 2024-11-22 17:14 | XMS_ITS | Encounter Summary ---
Author Organization [facility] Address [address] [place] [address] Care Team Providers Care Gas Or Water Meter Installer Name Role Phone Emigdio Veronica MD Primary Care Provider + Encounter Details Date Type Department Care Team (Late st Contact Info) Description 06/18/2021 10:15 EDT Phlebotomy Only [facility] Laboratory Services - [address] [address] [facility] Pancytopenia ([facility]); Portal vein thrombosis; MUSA (acute kidney injury) ([facility]) Social History Tobacco Use Types Packs/Day [...] 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 Not [...] [facility] Ophthalmology - [address] [phone] Gagandeep Rome MD [address] [facility], [address] [place] [phone] 02/11/2025 13:30 EDT Telemedicine [facility] Hematology & Oncology - [address] [address] Dana Padilla MD [address] [place] [address], [facility] 2 [place] [address] documented as of this encounter Procedures Procedure Name Priority Date/Time Associated Diagnosis Comments COMPLETE BLOOD COUNT STAT 06/18/2021 10:27 EDT Pancytopenia ([facility]) Portal vein thrombosis BASIC METABOLIC PANEL (BMP) Routine 06/18/2021 10:27 EDT MUSA (acute kidney injury) ([facility]) documented in this encounter Results * (ABNORMAL) BASIC METABOLIC PANEL (BMP) (06/18/2021 10:27 EDT) Sodium 136 136 - 145 mEq/L 06/18/2021 11:36 EDT [facility] Potassium 4.5 3.5 - 5.0 mEq/L 06/18/2021 11:36 EDT [facility] Chloride 101 96 - 110 mEq/L 06/18/2021 11:36 EDT [facility] CO2 Total 28 22 - 32 mEq/L 06/18/2021 11:36 EDT [facility] Glucose 92 70 - 100 mg/dL [facility] Calcium 8.9 8.5 - 10.5 mg/dL 06/18/2021 11:36 [facility] Calculated Calcium 9.2 8.5 - 10.5 mg/dL 06/18/2021 11:36 [facility] BUN 13 10 - 26 mg/dL 06/18/2021 11:36 [facility] Creatinine 1.07(H) 0.52 - 1.04 mg/dL 06/18/2021 11:36 [facility] eGFR 57(L) >60 mL/min/1.7 3m2 06/18/2021 11:36 [facility] Comment:eGFR calculated lobito coppola CKD-EPI equation for non- Americans. Multiply eGFR by 1.16 for patients. Blood VENOUS BLOOD / Unknown Venipuncture / Unknown 06/18/2021 10:27 EDT 06/18/2021 10:27 EDT us Emigdio Veronica MD CHEMISTRY & BLOOD GAS OR DERABLES Final Result [facility] [address] [place] [address] * (ABNORMAL) COMPLETE BLOOD COUNT (06/18/2021 10:27 EDT) WBC 1.19(L) 4.00 - 12.40 K/cmm 06/18/2021 11:10 [facility] RBC 3.49(L) 3.86 - 5.04 M/cmm 06/18/2021 11:10 [facility] Hemoglobin 9.8(L) 11.6 - 15.2 gm/dL 06/18/2021 11:10 [facility] HCT 30.0(L) 34.9 - 44.4 % 06/18/2021 11:10 [facility] MCV 86 81 - 98 fl 06/18/2021 11:10 [facility] MCH 28.1 26.7 - 33.3 pg 06/18/2021 11:10 [facility] MCHC 32.7 32.1 - 35.9 gm/dL 06/18/2021 11:10 EDT [facility] RDW-CV 15.9(H) <14.7 % 06/18/2021 11:10 EDT [facility] RDW-SD 49.7 <50.4 fl 06/18/2021 11:10 EDT [facility] PLT 44(L) 141 - 377 K/cmm 06/18/2021 11:10 EDT [facility] MPV 10.6 9.5 - 12.7 fl 06/18/2021 11:10 EDT [facility] Blood VENOUS BLOOD / Unknown Venipuncture / Unknown 06/18/2021 10:27 EDT 06/18/2021 10:27 EDT us Starr Paige MD HEMATOLOGY & PF4 ORDERABLES Final Result [facility] [address] [place] [address] documented in this encounter Visit Diagnoses Diagnosis Pancytopenia (HCC-CMS) Other pancytopenia Portal vein thrombosis MUSA (acute kidney injury) ([facility]) Acute kidney failure, unspecified documented in this encounter Care Teams Gas Or Water Meter Installer Relationship Specialty Start Date End Date Emigdio Veronica MD [address] [place] [phone] PCP - General Internal Medicine - Primary Care 05/22/20 02/21/24 documented as of this encounter
--- OUTSIDE RECORDS SUMMARY | 2024-11-22 17:14 | XMS_ITS | Encounter Summary ---
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 Not [...] Office Visit [facility] Ophthalmology - [address] [phone] Gagandeep Rome MD 111 [facility], [facility] 5 [place] [address] 02/11/2025 13:30 EDT Telemedicine [facility] Hematology & Oncology - [address] [phone] Dana Padilla MD [address] [place] [address], [facility] 2 [place] [phone] documented as of this encounter Procedures Procedure Name Priority Date/Time Associated Diagnosis Comments COMPLETE BLOOD COUNT STAT 06/03/2021 14:44 EDT Pancytopenia ([facility]) Portal vein thrombosis documented in this encounter Results * (ABNORMAL) COMPLETE BLOOD COUNT (06/03/2021 14:44 EDT) WBC 1.22(L) 4.00 - 12.40 K/cmm 06/03/2021 15:27 EDT [facility] RBC 4.01 3.86 - 5.04 M/cmm 06/03/2021 15:27 T [facility] Hemoglobin 11.1(L) 11.6 - 15.2 gm/dL 06/03/2021 15:27 T [facility] HCT 34.4(L) 34.9 - 44.4 % 06/03/2021 15:27 T [facility] MCV 86 81 - 98 fl 06/03/2021 15:27 EDT [facility] MCH 27.7 26.7 - 33.3 pg 06/03/2021 15:27 T [facility] MCHC 32.3 32.1 - 35.9 gm/dL 06/03/2021 15:27 EDT [facility] RDW-CV 15.8(H) <14.7 % 06/03/2021 15:27 EDT [facility] RDW-SD 49.1 <50.4 fl 06/03/2021 15:27 EDT [facility] PLT 43(L) 141 - 377 K/cmm 06/03/2021 15:27 EDT [facility] MPV 10.3 9.5 - 12.7 fl 06/03/2021 15:27 EDT [facility] Blood VENOUS BLOOD / Unknown Venipuncture / Unknown 06/03/2021 14:44 EDT 06/03/2021 14:45 EDT us Starr Paige MD HEMATOLOGY & PF4 ORDERABLES Final Result Performing Organization Address City/State/[facility] Co de Phone Number [facility] [address] [place] [address] documented in this encounter Visit Diagnoses Diagnosis Pancytopenia (HCC-CMS) Other pancytopenia Portal vein thrombosis documented in this encounter Care Teams Painter Chassis Relationship Specialty Start Date End Date Emigdio Veronica MD [address] [place] [phone] PCP - General Internal Medicine - Primary Care 05/22/20 02/21/24 documented as of this encounter
--- OUTSIDE RECORDS SUMMARY | 2024-11-22 17:14 | XMS_ITS | Encounter Summary ---
Author Organization 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 [...] Office Visit [facility] Ophthalmology - [address] [phone] Gagandeep Rome MD [address] [place] [address], [facility] 5 [place] [phone] 02/11/2025 13:30 EDT Telemedicine [facility] Hematology & Oncology - [address] [phone] Dana Padilla MD [address] [place] [address], [address] [place] [phone] documented as of this encounter Visit Diagnoses Not on filedocumented in this encounter Care Teams Assistive Technology Trainer Relationship Specialty Start Date End Date Emigdio Veronica MD [address] [place] [phone] PCP - General Internal Medicine - Primary Care 05/22/20 02/21/24 documented as of this encounter
--- OUTSIDE RECORDS SUMMARY | 2024-11-22 17:14 | XMS_ITS | Encounter Summary ---
Author Organization [facility] Address [address] [place] [address] Care Team Providers Care Sustainable Agriculture Specialist Name Role Phone Emigdio Veronica MD Primary Care Provider + Reason for Visit * Reason Comments Edema acute on chronic rafaela ma worse on LLE, new redness and burnung pain since waking up this morning, 8 pound weight gain in 24 hrs. Aware of limited imaging. 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 No / Unsure 06/12/2021 19:00 EDT documented as of this encounter Last Filed Vital Signs Vital Sign Reading Time Taken Comments Blood Pressure 107/63 06/12/20211913 EDT Pulse 86 06/12/20211913 EDT Temperature 36.6 ??C (97.8 ??F) 06/12/20211913 EDT Respiratory Rate 16 06/12/20211913 EDT Oxygen Saturation 98% 06/12/20211913 EDT Inhaled Oxygen Concentration - - Weight - - Height - - Body Mass Index - - documented in this encounter Functional Status * Are you deaf or do you have serious difficulty hearing? Answer Date of Assessment Author No 04/23/2021 13:50 EDLynn Vivas RN * Are you blind or do [...] Lynn Hall RN documented in this encounter Discharge Instructions * Discharge Instructions* Jaquelin Mccain PA-C - 06/12/2021 19:44 EDT To the ER documented in this encounter Medications at Time [...] Pain. Daily Max: 4 mg 56 Tablet 05/27/2021 1 levothyroxine (SYNTHROID) 25 mcg tablet Take 1 Tab by mouth daily. Unknown dose 90 Tab 3 11/03/2020 1 omeprazole (PRILOSEC) 40 mg capsule Take 1 capsule by mouth 2 times daily. 60 capsule 1 05/11/2021 1 ondansetron (ZOFRAN) 4 mg tablet Take 1 Tab by mouth 2 times daily as needed for Nausea. 60 Tab 3 03/30/2021 1 sertraline (ZOLOFT) 50 mg tablet Take 1 Tab by mouth daily. 90 Tab 1 04/10/2021 1 spironolactone (ALDACTONE) 50 mg tablet Take 1 Tab by mouth daily. 30 Tab 1 04/16/2021 1 SYMBICORT 160-4.5 mcg/actuation HFA aerosol inhaler inhalerIndicatio ns:COPD with asthma ([facility]) Inhale 2 Puffs as directed daily. 1 Inhaler 11 06/20/2020 1 traZODone (DESYREL) 100 mg tablet Take 2 Tabs by mouth at bedtime. 180 Tab 1 04/10/2021 1 documented as of this encounter Discharge Disposition Disposition Code Departure Means Destination Another Health Care Institution Not Defined documented in this encounter ED Notes * Xavier Riojas MA - 06/12/20211942 EDT 12 Lead EKG Performed by XAVIER RIOJAS MA and shown to Jaquelin Mccain. * Radha Luna RN - 06/12/20211941 EDT IV attempted x 1 - unsuccessful, EMS here at this time, will not retry * Jaquelin Mccain PA-C - 06/12/20211941 EDT DOS: 06/12/2021 Chief Complaint: Chief Complaint Patient presents with ??? Edema acute on chronic edema worse on LLE, new redness and burnung pain since waking up this morning, 8 pound weight gain in 24 hrs. Aware of limited imaging. ??? Fall fell down 3-4 stairs last night Assessment and Plan To the ER Final diagnoses: Weight gain - 8 pound weight gain in 24-hours Nausea and vomiting, intractability of vomiting not specified, unspecified vomiting type Lower extremity edema Fall, initial encounter - Down 3-4 stairs Procedures No results found for this visit on 06/12/21. Radiology orders: None Consult orders: None Imaging Results None EKG 12-LEAD Preliminary Result Wave form only; Final to follow after physician interpretation. Site Test Date: 2021-06-12 Pat Name: TARA [facility] Department: [facility] Room: 11 Gender: Female Employee Representative: : 1960 Requested By: JOSE MANUEL HODGE Order Number: [id number] Jose MD: The patient is a 60 y.o. female who presents today with Edema (acute on chronic edema worse on LLE,new redness and burnung pain since waking up this morning, 8 pound weight gain in 24 hrs. Aware of limited imaging. ) and Fall (fell down 3-4 stairs last night) Patient with multiple complaints her primary complaints are an 8 pound weight gain in 24 hours Lower extremity edema which is painful and erythematous Nausea and vomiting for 24 hours Fall down 3-4 stairs yesterday Bruise on her thigh Abnormal labs drawn yesterday Patient just finished anticoagulation last week for a clot between her liver and her pancreas Review of Systems Constitutional: Positive for appetite change and unexpected weight change. Respiratory: Positive for shortness of breath. Gastrointestinal: Positive for nausea and vomiting. Skin: Positive for color change and rash. No current facility-administered medications for this encounter. [...] tablet Take 1 Tab by mouth daily. (Patient taking differently: Take 40mg by mouth daily. ) 90 Tab 1 ??? HYDROmorphone (DILAUDID) 2 mg tablet Take 1 Tablet by mouth every 12 hours as needed for up to 28 days for Pain. Daily Max: 4 mg 56 Tablet 0 ??? levothyroxine (SYNTHROID) 25 mcg tablet Take 1 Tab by mouth daily. Unknown dose (Patient takingdifferently: Take 25 mcg by mouth daily before breakfast. ) 90 Tab 3 ??? omeprazole (PRILOSEC) 40 mg [...] by mouth at bedtime. 180 Tab 1 Facility-Administered Medications Ordered in Other Encounters Medication Dose Route Frequency Provider Last Rate Last Admin ??? albuterol (ACCUNEB) 2.5 mg /3 mL (0.083 %) nebulizer solution Allergies Allergen Reactions ??? Morphine Anaphylaxis ??? Sulfa (Sulfonamide Antibiotics) Anaphylaxis ??? Tylenol [Acetaminophen] Other (See Comments) Contraindication with medical hx ??? Flagyl [Metronidazole] Other (See Comments) Fatigue ??? Aspirin Other (See Comments) Contraindication with medical hx ??? Injectafer [Ferric Carboxymaltose] ??? Lyrica [Pregabalin] Anxiety Insomnia ??? Reglan [Metoclopramide Hcl] Rash Patient Active Problem List Diagnosis Date Noted ??? Portal vein thrombosis 04/23/2021 ??? COPD (chronic obstructive pulmonary disease) ([facility]) 01/21/2021 ??? Left ureteral stone 12/03/2020 ??? HUEY (obstructive sleep apnea) 04/26/2020 ??? Dyspnea 04/26/2020 ??? Partial small bowel obstruction ([facility]) 11/27/2019 ??? Cirrhosis of liver ([facility]) 09/30/2017 Likely secondary to NAFLD ??? Obesity, Class II, BMI 35-39.9 09/30/2017 [...] history. ??? Splenic vein thrombosis 08/24/2017 ??? Hematuria, gross 08/24/2017 Evaluated by urology and getting biopsy later in Sep 2017 ??? Hypersplenism syndrome ??? Drug-seeking behavior Per Dr Amelia Tijerina and notes from [facility] patient misconstrued information to several providers about multiple concurrent opiate prescription ??? Abdominal wall hernia 11/05/2016 ??? Allergic rhinitis 11/05/2016 ??? Pancytopenia ([facility]) 07/18/2015 ??? Mild persistent asthma without complication 07/18/2015 ??? Nephrolithiasis 11/10/2020 Added automatically from request for surgery [id number] Past Medical History: Diagnosis Date ??? Anemia ??? Anxiety ??? Asthma 12/10/2020 currently not taking - mild persistent - see dr. Veronica 11/20/2021 ??? Bleeding disorder (HCC-CMS) ??? Bursitis right shoulder ??? C. difficile colitis 07/25/2015 Hospitalized after kidney stone removal ??? Chronic ITP (idiopathic thrombocytopenia) (HCC-CMS) 12/10/2020 - see 11/20/2020 Dr. Glenys Denton, (managed by Starr Paige MD) ??? Chronic kidney disease slow to come back ??? Cirrhosis of liver (HCC-CMS) ??? Clotting disorder (HCC-CMS) ??? Community acquired pneumonia january 2021 ??? COPD exacerbation (HCC-CMS) 04/26/2020 ??? Depression ??? Drug-seeking behavior Per Dr Amelia Tijerina and notes from [facility] patient misconstrued information to several providers [...] ??? Clotting Disorder Father ??? Diabetes Brother BP 107/63 Pulse 86 Temp 97.8 ??F (36.6 ??C) (Tympanic) Resp 16 SpO2 98% Physical Exam Vitals and nursing note reviewed. Constitutional: General: She is not in acute distress. Appearance: She is well-developed. She is obese. She is ill-appearing. She is not toxic-appearing or diaphoretic. HENT: Head: Normocephalic. Pulmonary: Effort: Pulmonary effort is normal. No respiratory distress. Comments: No respiratory distress Musculoskeletal: Cervical back: Normal range of motion. Right lower leg: Edema present. Left lower leg: Edema present. Skin: General: Skin is warm and dry. Neurological: Mental Status: She is alert and oriented to person, place, and time. PCP: Emigdio Mccain was available for consultation during my care of this patient. Urgent Care Course A medical screening exam was performed. Brief history and physical done just prior to transfer. Spoke with call room and emergency, since call rolled over from ER attending. DISPOSITION: Transfered to Another Facility The patient's pain was managed to an adequate level weighing risk vs. benefit of further medications. Upon departure from [facility], the patient's pain was 2 on a zero to ten scale. Any further pain treatment will be at the discretion of the provider following up with the patient based on their clinical assessment . Condition at departure from the [facility] : Stable MDM 06/12/2021 19:47 * Radha Luna RN - 06/12/2021 193 EDT Called [facility] for transport * Radha Luna RN - 06/12/20211927 EDT Reporting that she wasn't able to keep her meds down today * Radha Luna RN - 06/12/20211922 EDT Fell down stairs and is reporting that there was a handle to a rake and it jabbed her right thigh and she has a bruise Bilateral leg swelling and 8 lb weight gain, denies hx. Of CHF, on oxygen at home at night, feelingSOB at times, denies heart problems, reporting blood work today and they were off, was on blood thinner recently * Lashanda Ling RN - 06/12/20211915 EDT Patient aware of limited services here at [facility] but her ride has left to do errands. Patient will take ambulance if needed to ED. * Lashanda Ling RN - 06/12/20211910 EDT Negative COVID screen. documented in this encounter Plan of Treatment Upcoming Encounters Date Type Department Care Team (Late st Contact Info) Description 01/04/2025 13:00 EST Office Visit [facility] - [address] [phone] Gagandeep Rome MD [address] [place] [address], [address] [place] [phone] 02/11/2025 13:30 EDT Telemedicine [facility] Hematology & Oncology [address] [phone] Dana Padilla MD [address] [facility] 2 [place] [phone] documented as of this encounter Procedures Procedure Name Priority Date/Time Associated Diagnosis Comments ECG REPORT - SCANNED 07/10/2021 9:58 EDT EKG 12-LEAD STAT 06/12/2021 19:38 EDT documented in this encounter Results * ECG REPORT - SCANNED (07/10/2021 9:58 EDT) 07/10/2021 9:58 EDT us Scan 2 Leadership Program Intern PROCEDURE/MINOR SURGICAL OR DERABLES Final Result * EKG 12-LEAD (06/12/2021 19:38 EDT) 06/12/2021 19:3 8 EDT Narrative [facility] EKG - 07/10/2021 9:52 EDT ? PC Site ? Test Date: ?2021-06-12 Pat Name: ? PHYLISS BOOTHE ?Department: ?? [facility] ? Room: ? 11 Gender: ? Female ? Employee Representative: ?? : ?1960 ? Requested By: JOSE MANUEL HODGE Order Number: [id number] ? Reading MD: ?? FATOUMATA ELDRIDGE ? Measurements Intervals ?Enola ? Rate: ? 80 ? P: ?59 AL: ? 145 ?QRS: ?93 QRSD: ? 102 ?T: ?7 QT: ? 372 ? QTc: ?430 ? Interpretive Statements SINUS RHYTHM BORDERLINE RIGHT AXIS DEVIATION POSSIBLE INFERIOR MYOCARDIAL INFARCTION, PROBABLY OLD Automated Interpretation. Compared to ECG 05/08/2021 13:25:37 Myocardial infarct finding now present I reviewed the tracing and have either agreed or edited the findings in this report. Electronically Signed On 07-10-2021 9:52:49 EDT by FATOUMATA JUSTIN Procedure Note Jaquelin Mccain PA-C - 07/10/2021 PC Site Test Date: 2021-06-12 Pat Name: TARA BOOTHE Department: [facility] Room: 11 Gender: Female Employee Representative: : 1960 Requested By: JOSE MANUEL HODGE Order Number: [id number] Reading MD: FATOUMATA ELDRIDGE Measurements Intervals Enola Rate: 80 P: 59 AL: 145 QRS: 93 QRSD: 102 T: 7 QT: 372 QTc: 430 Interpretive Statements SINUS RHYTHM BORDERLINE RIGHT AXIS DEVIATION POSSIBLE INFERIOR MYOCARDIAL INFARCTION, PROBABLY OLD Automated Interpretation. Compared to ECG 05/08/2021 13:25:37 Myocardial infarct finding now present I reviewed the tracing and have either agreed or edited the findings inthis report. Electronically Signed On 07-10-2021 9:52:49 EDT by FATOUMATA GRANADOS. Jaquelin Mccain PA-C CARDIAC ECG O RDERABLES Final Result [facility] EKG documented in this encounter Visit Diagnoses Diagnosis Weight gain- Primary Abnormal weight gain Edema, unspecified type Nausea and vomiting, intractability of vomiting not specified, unspecified vomiting type Lower extremity edema Edema Fall, initial encounter documented in this encounter Discontinued Medications Medication Sig Discontinue Reason Start Date End Da te enoxaparin (LOVENOX) 40 mg/0.4 mL injection Inject 40 mg into the skin daily for 30 days. 05/15/2021 06/12/2021 magnesium oxide (MAG-OX) 400 mg (241.3 mg magnesium) tablet Take 1 Tab by mouth daily. 12/15/2020 06/12/2021 documented as of this encounter Care Teams Sustainable Agriculture Specialist Relationship Specialty Start Date End Date Emigdio Veronica MD [address] [place] [phone] PCP - General Internal Medicine - Primary Care 05/22/20 02/21/24 documented as of this encounter
--- OUTSIDE RECORDS SUMMARY | 2024-11-22 17:14 | XMS_ITS | Encounter Summary ---
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 Not on file Not on file [...] Office Visit [facility] Op[facility] - [address] [phone] Gagandeep Rome MD [address] [place] [address], [facility] [address] [place] [phone] 02/11/2025 13:30 EDT Telemedicine [facility] Oncology - [address] [phone] Dana Padilla MD [address] [place] [address], [address] [place] [phone] documented as of this encounter Visit Diagnoses Not on filedocumented in this encounter Additional Health Concerns Infection Onset Date Last Indicated Resolved Time R/O COVID-19 06/12/2021 06/12/2021 06/12/2021 23:4 3 EDT documented as of this encounter Care Teams Boy'S Adviser Relationship Specialty Start Date End Date Emigdio Veronica MD [address] [place] [phone] PCP - General Internal Medicine - Primary Care 05/22/20 02/21/24 documented as of this encounter
--- OUTSIDE RECORDS SUMMARY | 2024-11-22 17:14 | XMS_ITS | Encounter Summary ---
Author Organization [facility] Address [address] [place] [address] Care Team Providers Care Rack Room Worker Name Role Phone Emigdio Veronica MD Primary Care Provider + Reason for Visit * Reason Comments Leg Swelling pt arrives with SMR from [facility] for evaluation fo edema to feet, weight gain of 8lbs in 24hrs. recent blood clot diagnosis, but lovenox was discontinued d/t low platelet count. pt endorses chest pressure, lightheadedness. hx copd and CHF. VS WNL. 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 No / Unsure 06/12/2021 20:31 EDT documented as of this encounter Last Filed Vital Signs Vital Sign Reading Time Taken Comments Blood Pressure 92/57 06/13/2021 1104 EDT Pulse - - Temperature 36.6 ??C (97.9 ??F) 06/12/20212029 EDT Respiratory Rate 31 06/13/2021 1113 EDT Oxygen Saturation 97% 06/13/2021 1045 EDT Inhaled Oxygen Concentration - - Weight 94.2 kg (207 lb 9.6 oz) 06/12/20212029 E DT Height - - Body Mass Index 35.23 05/28/2021 1040 EDT documented in this encounter [...] this encounter Discharge Instructions * Discharge Instructions* Toni Rebolledo MD - 06/13/2021 10:50 EDT You were seen for generalized weakness, abnormal blood cell counts. Please continue to follow-up closely with your primary care doctor, have them follow your blood counts closely. I recommend you hold your spironolactone and Lasix today, if you feel well tomorrow, you may take as prescribed, if youdo not feel well hold it another day and call your doctor on Tuesday. If you begin to feel worse, please return to the ER, if you have abdominal pain, fevers, shaking chills, or other concerning symptoms. We will also try to arrange home health services I hope you feel better documented in this encounter Medications at Time [...] MOUTH EVERY DAY 30 Tablet 06/15/2021 1 spironolactone (ALDACTONE) 50 mg tablet Take 1 Tab by mouth daily. 30 Tab 1 04/16/2021 1 SYMBICORT 160-4.5 mcg/actuation HFA aerosol inhaler inhalerIndicatio ns:COPD with asthma ([facility]) Inhale 2 Puffs as directed daily. 1 Inhaler 11 06/20/2020 1 traZODone (DESYREL) 100 mg tablet Take 2 Tabs by mouth at bedtime. 180 Tab 1 04/10/2021 1 documented as of this encounter Discharge Disposition Disposition Code Departure Means Destination Home or Self Fpc documented in this encounter Consult Notes * Dimple Grove MD - 06/13/2021 0814 EDT Initial Consult Note: Internal Medicine Hospitalist Service Date of Service: 06/13/2021 Reason for Consult: I was asked by Dr. Aramis Garcia to see patient for hospital admission request HPI: 60 y.o. female with history of NAFLD and hep C with longstanding decompensated cirrhosis (hepatic encephalopathy, edema) associated with splenomegaly and pancytopenia (all formerly managed at [facility], now by [facility]), chronic portal vein thrombosis, chronic back, leg and abdominal pain on opiates, CKDII, nephrolithiasis with prior ureteral stent, COPD, hypothyroid, HUEY. She is in the ED today complaining of malaise, leg numbness, pain and black/red discoloration, recent fall, abdominal pain and poor PO intake. Her vitals are significant for BP in the 80s-90s systolic, labs significant for creatinine 1.24 (0.9-1.6 over the past year) and WBC 0.96 (ANC 770. Baseline WBC 1-2), Hgb 9 (baseline 10-11), plt 39 (recent baseline). CT of her head, C spine, CTA chest, CT abdomen/pelvis did not reveal any new pathology aside from new mild right sided hydroureteronephrosis. On my chart review, she has complained of a variety of symptoms since at least October 2020 (whichis as far as I looked), including chronic leg numbness, pain and discoloration, chronic abdominal pain, intermittent N/V and poor PO intake, occasional falls. She is followed closely by her PCP Dr Veronica as well as hematology (next appointment is in 3 weeks) and is engaged with the [facility]. She was admitted to internal medicine in April for about 24 hours for acute on chronic abdominal pain which was ultimately attributed to slightly extended chronic PVT and was started on lovenoxat that point- since stopped for worsening thrombocytopenia. (Of note, I was told by Dr Garcia thatolivier's been transitioned to apixaban, however I see no evidence of this in the chart and I neglectedto ask the patient myself). Her pancytopenia has been followed for years by hematology and is attributed to her cirrhosis. She's had at least 2 BMB for it which were not otherwise revealing. Her kidney function has waxed and waned over the last year, from 0.9-1.6 and her PCP has recently decreased her diuretic doses for this reason. BPs during ED visits and prior admission are typically in the 80-100 systolic, as they are today in the ED. On my interview, the patient complaints of full body pain and exhaustion. She feels overwhelmed by her various pains, but most specifically terrible LE burning and cramping which no-one has been ableto explain the etiology of. This was primarily what she wanted to talk about. She also mentions that she's been unable to eat or drink anything for days (again, a complaint I see intermittently in the chart). She accepted some apple juice and jello and was eating it when I left. She has no new cough, dyspnea, diarrhea, dysuria. She has not thrown up since arriving in the ED. She describes a fall about a month ago and another 2 days ago- she says she fell down her last 2 stairs and landed on herright hip on a broom handle (shows me a small bruise from this). Past Medical History: complete in HPI Past Surgical History: has a past surgical history that includes hernia repair; Appendectomy; Tonsillectomy; Cholecystectomy; Hysterectomy; knee surgery (Bilateral); joint replacement (Bilateral); Wrist surgery (Right); Gastric fundoplication (1989); bone marrow biopsy; and Cystoscopy (12/03/2020). Medications: Medications reviewed in [facility]. Notable for: Lasix and spironolactone, hydromorphone, apixaban, synthroid, omeprazole BID, symbicort, sertraline, trazodone Allergies:Morphine, Sulfa (sulfonamide antibiotics), Tylenol [acetaminophen], Flagyl [metronidazole], Aspirin, Injectafer [ferric carboxymaltose], Lyrica [pregabalin], and Reglan [metoclopramide hcl] Social History: Lives in a home nearby with an elderly couple that she rents from. They are not able to help her. Has kids, specifically a son and grandchildren in the area who are involved but too busy to help much. She spends time with her grandkids when she feels well enough. Walks unassisted Family History: No history of cirrhosis ROS: See HPI. A complete 10 point review of systems was performed and is otherwise negative. Objective: BP (!) 87/48 Temp 36.6 ??C (97.9 ??F) (Temporal) Resp 11 Wt 94.2 kg (207 lb 9.6 oz) SpO2 98% BMI 35.23 kg/m?? Gen: obese middle aged woman sleeping in bed, somewhat difficult to arouse but alert afterward Eyes: anicteric, no discharge ENT: MMM, very poor dentition Cardiovascular: RRR, no murmur appreciated, normal S1, S2 Lungs: diffuse bilateral musical wheeze, no increased WOB, no crackles Back: no CVA ttp Abd: soft, non tender, non distended, no masses appreciated, BS+ Neuro: alert, interactive, conversant. Grossly normal and moving UE spontaneously. LE strength not examined but she is able to lift both legs off the bed Extremities: no edema bilateral LE. Warm, normal pulses Skin: petichial rash on bilateral shins from ankle to below knee. Feet are spared : no camacho Laboratory Data: Recent Labs 06/12/21 1332 06/12/21 2355 WBC 1.41* 0.96* HGB 10.4* 9.1* HCT 31.7* 28.3* PLT 41* 39* Recent Labs 06/12/21 1332 06/12/21 2355 NA 137 138 K 4.8 4.3 CL 99 101 CO2 27 29 BUN 19 21 CREATININE 1.29* 1.34* Recent Labs 06/13/21 0029 PROTIME 15.7* INR 1.4* PTT 34 Recent Labs 06/12/21 2355 TBIL 0.6 ALKPHOS 86 AST 20 ALT 12 LIPASE 39 Incorrect component name entered: ALBU Recent Labs 06/12/21 2355 TROPONINI <0.034 ECG: Reviewed. NSR Radiology: Imaging was reviewed. CT head and C spine are normal. CTA chest shows smoking related small airway disease. CT abdomen and pelvis IMPRESSION 1. No evidence of pulmonary embolism. 2. Aortic and coronary atherosclerosis. 3. Small airway disease, may be chronic e.g. smoking-related 4. Suspect early changes of hepatopulmonary syndrome. DVT studies today are negative US arterial duplex on 05/22 showed normal pressures and waveforms Microscopy review: Urine cultured today- pending Pathology review: [facility] on May 01, 2019 she underwent a bone marrow biopsy that showed mature trilineage hematopoiesis with no evidence of bone marrow disease. ?? Bone marrow biopsy 04/09/2013: (Performed at [facility]) ---Diagnosis--- 1. Progressive pancytopenia, chronic Hep C infection, by history 2. Leukolymphopenia and thrombopenia, peripheral blood 3. Normocellular marrow with trilineage maturation, no clear evidence of dysplasia or infiltrative disease-see comment ---Addendum Discussion--- Immunostains for kappa and lambda light chains were performed after detection of a low level paraprotein. These stains revealed only scattered singly distributed plasma cells, with both kappa and lambda positive plasma cells present. There is no evidence of a clonal population. Impression: 60 year old chronically ill and chronically uncomfortable woman with longstanding decompensated cirrhosis with associated pancytopenia, chronic pain on opiates, coming in with various chronic complaints and found to have multiple abnormal labs and low BP, all of which appear to be at or close to her baselines. I cannot think of any benefit I might provide from hospital admission at this time. 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 She has poor understanding of her diseases and probably unreasonable expectations for improvement in functionality, so I suspect she will continue to visit the ED with similar complaints. She would probably benefit from medical psychological counseling. Problems & Recommendations: 1. Pancytopenia: while her numbers have been slightly better in the last year, for years she is frequently in the range she's in today. This includes her severe neutropenia and thrombocytopenia. The second Hgb checked today was 9, which is lower than her usual range of 10-11, however with no clinical sign of bleeding, I suspect this represents the range of lab error. Certainly if it continued to fall on future CBCs, I might suspect subclinical bleeding from her known peptic ulcer. -continue weekly CBC as arranged outpatient -follow up as scheduled with hematology in June -continue BID PPI 2. Low BP: this is her baseline as per chart review. Likely 2/2 cirrhosis 3. Elevated creatinine: hard to say if this is MUSA or her new baseline. She has been in this range more often than not over the past year. I do suspect she's on the dry side and agree with her PCP's recent reduction in diuretic dosing as well as the ED's application of gentle IVF this visit -would resume diuretics at her current prescribed dose when she is tolerating PO. Tomorrow, probably. She has follow up in less than 2 weeks with her PCP, who can further adjust 4. Pain, malaise, leg symptoms: unfortunately, these are longstanding and have not lended well to easy explanation. I will defer to her excellent PCP for further management. Her occasional falls may be related to relative LE weakness, cramping and pain (and probably contributed to by her opiate use). I wonder if some home PT would be helpful. -VNA with home PT if felt appropriate. Could be used for weekly phlebotomy as well 5. Chronic PVT: unchanged on CT -would continue whatever anticoagulation plan has been in operation by PCP and hematology. Unclear to me whether she's currently on anticoagulation I appreciate the time spent by the ED staff in the care of this patient. Total floor time I spent in the care of this patient today = 70 Minutes Dimple Grove MD 06/13/2021 8:15 documented in this encounter ED Notes * Ne Villarreal RN - 06/13/2021 1128 EDT Pt discharged home. Pt verbalized understanding and denied any questions regarding discharge instructions. Report given to [facility]. Pt off unit in stable condition with steady gait. * Mohan Waldrop - 06/13/2021 1056 EDT SW Note: Pt is here after having difficulty at home with mobility. She rents a room from a couple in [place]. She has agreed to have [facility] PT to help with her mobility issues at home. She is also hoping to have her weekly lab draws done at home. She has difficulty obtaining transportation to have her labsdrawn. Please call [facility] with report [phone] Conner PAM Waldrop CMII [id number]/cortext * Ne Villarreal RN - 06/13/2021 1017 EDT Hospitalitis came to bedside. Plan for d/c home after PO challenge. Pt ate jelly, feels fine at this time. Dilaudid given to fill pt's home prescription. Awaiting social work to come to bedside to discuss home VNA services with pt. * Toni Rebolledo MD - 06/13/2021 1006 EDT ITeresa am scribing for Toni Rebolledo MD while he/she is personally performing the service. Teresa Garland 06/13/2021 10:06 Tara Boothe is a 60 y.o. female with a history of cirrhosis of the liver, portal vein thrombosis (diagnosed 04/23) COPD, HUEY, partial SBO, splenic vein thrombosis, mild persistent asthma who presents to the ED from for evaluation of increased leg swelling, discoloration, and 8lb weight gain inthe setting of noncompliance with oral Lasix due to nausea and vomiting for last 24 hours. On my exam this morning, on reassessment she feels well, and at baseline. She said her legs are still hurting but that is normal for her. She does have some purpura on bilateral lower extremities without erythema or warmth, compartments are soft, she is nontoxic in appearance, alert and oriented inno distress, breathing is comfortable. My colleague overnight, obtained labs, and imaging; the labs showed worsening pancytopenia, Cr slightly up but more or less at baseline. She also had borderline blood pressures overnight, in the 90s,which reportedly by her not that far from her baseline. He had the hospitalist see her, Dr. Grove, regarding lab abnormalities, and her essentially failure to thrive-like picture. Dr. Grove evaluated her, and felt that close outpatient follow-up and ongoing management was reasonable as opposed to admission. The patient agreed. I assumed care of patient from Dr. Aramis Garcia with Medicine recommendations pending. After I assumed care the patient was seen by Medicine. ([id number]) Discussed patient's case with Medicine. They recommended PO challenge and if patient can tolerate food/liquids, plan for discharge home. (5910) Nurse informed me patient's blood pressure improved when she awoke., She feels well enough to go home. We will try to arrange home PT, she has weekly blood draws to follow her pancytopenia. I will have her hold her Lasix and spironolactone today, with the borderline blood pressure and poor PO intake, and resume taking it tomorrow if she feels well, her hold again and follow closely with Dr. Veronica. She has been observed for 14 hours, her blood pressure improved when she awoke, no sign of evolving sepsis, or other evolving process. She is complex with significant medical comorbidities,and chronically ill but overall does appear to be near her baseline. She will observe herself closely at home, return for worsening symptoms that we discussed in detail. She was discharged in stable condition This documentation is recorded by Teresa Garland acting as Scribe under the direction and presence of Toni Rebolledo MD. Toni Rebolledo MD: I personally performed the services recorded by the scribe in my presence. I confirm the scribe's documentation has been reviewed by me to accurately and completely record my work, treatment, procedures, and medical decision making * Ne Villarreal RN - 06/13/2021 0653 EDT Possible plan for admit. Pt continues to sleep comfortably in bed. BP's continuously below 90, MD aware. * Ne Villarreal RN - 06/13/2021 0523 EDT Report received from KENN De Los Santos. Pt remains on continuous ekg monitor tech. * Pedro Betancourt RN - 06/13/2021 0230 EDT Pt assisted to BSC with SBA. * Hiren Richard - 06/13/2021 0012 EDT IHiren, notified Dr. GARCIA of WHITE COUNT 0.96 on 06/13/2021 at 0:12. * Samson Garcia MD - 06/12/2021 2341 EDT This patient received an evaluation and medical screening exam for emergent medical conditions at the [facility] on 06/12/2021 Scribe attestation: This documentation is recorded by Lise Elliott acting as Scribe under the direction and presence of Samson Garcia MD. Samson Garcia MD I personally performed the services recorded by the scribe in my presence. I confirm the scribe's documentation has been reviewed by me to accurately and completely record my work, treatment, procedures, and medical decision making. Chief Complaint Leg swelling FINA Boothe is a 60 y.o. female with PMH including cirrhosis of the liver, portal vein thrombosis (diagnosed 04/23) COPD, HUEY, partial SBO, splenic vein thrombosis, mild persistent asthma who presents to the ED for evaluation of leg swelling. The patient explains that over the course of the last 24 hours, she has been experiencing progressively worsening LE edema with associated discoloration and pain. She also notes presence of nausea and vomiting over the course of the last 24 hours which has caused inability to tolerate PO thus preventing compliance with oral Lasix. Despite decreased PO intake, patient admits that she has gained 8lbs within the last 24 hours which prompted her to present to for assessment. Due to limited imaging options at and indication for higher level of care, patient was transferred to [facility] ED. On initial evaluation in the ED, the patient expresses continued concern for aforementioned symptoms. She reports that for the last several weeks, her feet have been black and (her) legs have been red. She has also had numbness localized to her BLE. She explains that yesterday, she sustained a fall down 3-4 stairs secondary to loss of balance though she did not seek medical attention. Patient reports that her PCP is aware of these symptoms though has been unable to identify any cause; she hadlabs earlier today which revealed mildly elevated creatinine 1.29, up from baseline of 1.00, BUN 19. H&H 10 and 31, PLT 41 which is baseline for her. History was provided by: patient, medical records Patient's pertinent PMH, FH, SH were reviewed and updated PRN. ROS A 10 point review of systems has been performed and is otherwise negative except as noted in the HPI. Physical Exam Vital Signs Temp: 36.6 ??C (97.9 ??F) Temp src: Temporal Heart Rate: 74 BPM Cardiac Rhythm: Normal sinus rhythm Resp: 12 SpO2: 98 % BP: (!) 86/53 BP MAP: 61 mm Hg BP Device: BP Machine BP Patient Position: Sitting BP Cuff Location: Left arm O2 Device: None (Room air) Physical Exam Vitals and nursing note reviewed. Constitutional: General: She is not in acute distress. Comments: Somnolent but oriented HENT: Head: Normocephalic and atraumatic. Eyes: Pupils: Pupils are equal, round, and reactive to light. Cardiovascular: Rate and Rhythm: Regular rhythm. Pulses: Dorsalis pedis pulses are 2+ on the right side and 2+ on the left side. Pulmonary: Effort: Pulmonary effort is normal. No respiratory distress. Breath sounds: Normal breath sounds. No stridor. Abdominal: General: There is no distension. Palpations: Abdomen is soft. Tenderness: There is no abdominal tenderness. Musculoskeletal: General: Normal range of motion. Cervical back: Normal range of motion and neck supple. Skin: General: Skin is warm and dry. Findings: Rash (Petechial rash to BLE) present. Neurological: Mental Status: She is alert and oriented to person, place, and time. Cranial Nerves: No cranial nerve deficit. Laboratory Results Labs Reviewed COMPLETE BLOOD COUNT AND DIFFERENTIAL - Abnormal Result Value Status WBC 0.96 (*) Final RBC 3.30 (*) Final Hemoglobin 9.1 (*) Final HCT 28.3 (*) Final MCV 86 Final MCH 27.6 Final MCHC 32.2 Final RDW-CV 15.7 (*) Final RDW-SD 48.9 Final PLT 39 (*) Final MPV 10.7 Final Type of Differential: Manual Final COMPREHENSIVE METABOLIC PANEL (CMP) - Abnormal Sodium 138 Final Potassium 4.3 Final Chloride 101 Final CO2 Total 29 Final Glucose 91 Final BUN 21 Final Creatinine 1.34 (*) Final eGFR 43 (*) Final Total Protein 5.7 (*) Final Albumin 3.3 (*) Final Alkaline Phosphatase 86 Final AST 20 Final ALT 12 Final Bilirubin, Total 0.6 Final Calcium 8.7 Final Calculated Calcium 9.3 Final DIFFERENTIAL, AUTOMATED MANUAL - Abnormal Neutrophils 80.0 Final Lymphocytes 13.9 Final Monocytes 3.5 Final Eosinophils 0.9 Final Basophils 1.7 Final Ovalocytes 2+ Final Large Platelets Present Final Absolute Neutrophils 0.77 (*) Final Absolute Lymphocytes 0.13 (*) Final Absolute Monocytes 0.03 (*) Final Absolute Eosinophils 0.01 (*) Final Absolute Basophils 0.02 Final PROTIME - Abnormal I.N.R. 1.4 (*) Final Pro Time 15.7 (*) Final Narrative: Moderate Intensity Coumadin INR = 2.0-3.0 Adjustments in anticoagulant therapy dose should be based on the INR and NOT on the Protime. LIPASE - Normal Lipase 39 Final MAGNESIUM - Normal Magnesium 1.8 Final TROPONIN I - Normal Troponin I <0.034 Final Narrative: The results of this assay can be falsely lowered due to the consumption of Biotin. NT PRO BNP - Normal NT-pro BNP 83 Final LACTIC ACID - Normal Lactic Acid 0.7 Final PTT - Normal PTT 34 Final Data Interpretation An EKG was obtained an independently interpreted: NSR, QRS 101, QTc 420. Imaging obtained was reviewed and independently interpreted: The patient had a head CT which was significant for no acute intracranial processes. Patient had CTthat was obtained, reviewed, and interpreted by myself along with a radiologist. Please see radiology report for further details. The patient had a C-spine CT which was significant for no fracture. Patient had CT that was obtained, reviewed, and interpreted by myself along with a radiologist. Please see radiology report for further details. The patient had an abdominal/pelvic CT which was significant for cirrhotic configuration of the liver with stigmata of portal hypertension including marked splenomegaly and a portosystemic shunt in hepatic segment 8. Unchanged thrombus along the wall of the main portal vein and splenic vein. New right-sided hydroureteronephrosis with tapering of the distal ureter where it crosses the iliac vessels. Atherosclerosis. Prior right anterior hernia repair. Unchanged left adrenal nodule.. Patient had CT that was obtained, reviewed, and interpreted by myself along with a radiologist. Please see radiology report for further details. The patient had an angiogram chest CT which was significant for no evidence of PE. Patient had CT that was obtained, reviewed, and interpreted by myself along with a radiologist. Please see radiologyreport for further details. The patient had a LE US which was significant for no evidence of DVT. Patient had US that was obtained, reviewed, and interpreted by myself along with a radiologist. Please see radiology report for further details. Laboratory results independently reviewed, significant for: WBC 0.96, down from 1.41 at 1330 on 06/12. MUSA with creatinine 1.34, BUN 21. Negative troponin. Normal lipase, normal lactic acid. Procedures Procedures I performed a limited ED POCUS applications: Cardiac [id number] ultrasound. Please see my narrative and impression recorded in imaging results. I performed, reviewed, and independently interpretedthe images. Images saved in JumpTime and PACS. ED Course/Medical Decision Making A medical screening was performed. The patient is a 60 y.o. female with a history of cirrhosis of the liver, portal vein thrombosis (diagnosed 04/23) COPD, HUEY, partial SBO, splenic vein thrombosis, mild persistent asthma who presents to the ED from for evaluation of increased leg swelling, discoloration, and 8lb weight gain in thesetting of noncompliance with oral Lasix due to nausea and vomiting for last 24 hours. Physical exam was significant for patient having petechial rash to her BLE, tender to palpation. 2+DP pulses BL. Exam otherwise unremarkable as she was somnolent but oriented. Patient noted to have hypotension of unclear etiology, will obtain labs, EKG, CTs. Infectious etiology possible yet patient is without other evidence/ history to suggest sepsis, will give IVB and reassess. Bedside US without acute findings. 0119: Patient hydrated with 500mL IV LR BOLUS, diuresed with 20mg IV Lasix. 0208: Patient treated with 4mg IV Zofran. Labs showed new pancytopenia, acute kidney injury. Concern for this identified MUSA in the setting of weight gain, as well as report of recent falls. No improvement of symptoms despite treatment with fluids, Lasix. Plan for discussion with Medicine. 0730: Discussed the patient's care with admitting hospitalist. They advised consulting Hematology. Paged at this time. 0750: Discussed patient's care with Hematology. They did not feel that they patient required inpatient admission under their care. Still concern for MUSA in setting of weight gain, as well as concern for fall - will update Medicinewith discussion and advocate for admission. 0810: Spoke with admitting hospitalist again, informed them of my discussion with Hematology. They agreed to assess the patient. The patient was signed out at change of shift with Medicine evaluation and recommendations pending. While under my care in the Emergency Department, the patient's pain was managed to an adequate level weighing risk vs. benefit of medication. Clinical Impression Final diagnoses: None Disposition Signed out (see progress Notes) The patient's pain was managed to an adequate level weighing risk vs. benefit of further medications.At the end of my care of this patient, the patient's pain was 1 on a zero to ten scale. Any further pain treatment will be at the discretion of the provider following up with the patient based on their clinical assessment. Condition at the end of my care of this patient: Stable * Jesus Khan RN - 06/12/2021 6276 EDT Pt remains hypotensive. Pt reports lightheadedness is worsening. Provider aware. * Omero Ferrari - 06/12/20212042 EDT 12 Lead EKG Performed by OMERO FERRARI and shown to Dr. Douglas. * Darshan Palacio - 06/12/20212004 EDT TCALL: MANOJ BOOTHE 60 REF [facility] FOR [facility]A, SOB, RAPID WEIGHT GAIN. ([facility]) documented in this encounter Plan of Treatment Upcoming Encounters Date Type Department Care Team (Late st Contact Info) Description 01/04/2025 13:00 EST Office Visit [facility] Ophthalmology - [address] [phone] Gagandeep Rome MD [address] [place] [address], [facility] [address] [place] [address] 02/11/2025 13:30 EDT Telemedicine [facility] Hematology & Oncology - [address] [phone] Dana Padilla MD [address] [place] [address], [facility] [address] [place] [address] Pending Results Name Type Priority Associated Diagnoses Date /Time POCT US ED CARDIAC Imaging STAT 2020 23:53 EDT Scheduled Orders Name Type Priority Associated Diagnoses Orde r Schedule POCT US ED CARDIAC Imaging STAT One Ti me for 1 Occurrences starting 06/12/2021 until 06/12/2021 documented as of this encounter Procedures Procedure Name Priority Date/Time Associated Diagnosis Comments ECG REPORT - SCANNED 06/23/2021 10:57 EDT URINE CHEMICAL (DIP) & SEDIMENT (MICRO) WITH REFLEX TO CULTURE STAT 06/13/2021 10:15 EDT BACTERIAL CULTURE, URINE Today 06/13/2021 10:[address] HEAD WO CONTRAST STAT 06/13/2021 2 :[address] ANGIO CHEST PE PROTOCOL STAT 06/13/2021 2:[address] CERVICAL SPINE WO CONTRAST STAT 06/13/2021 2:[address] ABDOMEN PELVIS W CONTRAST STAT 06/13/2021 2:28 EDT US LOWER VENOUS DUPLEX (DVT) BILATERAL STAT 06/13/2021 1:18 EDT PTT STAT 06/13/2021 0:29 EDT PROTIME STAT 06/13/2021 0:29 EDT DIFFERENTIAL, AUTOMATED MANUAL Today 06/12/2021 23:55 EDT TROPONIN I STAT 06/12/2021 23:55 EDT LACTIC ACID STAT 06/12/2021 23:55 EDT COMPLETE BLOOD COUNT AND DIFFERENTIAL STAT 06/12/2021 23:55 EDT NT PRO BNP STAT 06/12/2021 23:55 EDT MAGNESIUM STAT 06/12/2021 23:55 EDT LIPASE STAT 06/12/2021 23:55 EDT COMPREHENSIVE METABOLIC PANEL (CMP) STAT 06/12/2021 23:55 EDT EKG 12-LEAD STAT 06/12/2021 20:38 EDT documented in this encounter Results * ECG REPORT - SCANNED (06/23/2021 10:57 EDT) 06/23/2021 10:5 7 EDT us Scan 2 [employer] PROCEDURE/MINOR SURGICAL OR DERABLES Final Result * BACTERIAL CULTURE, URINE (06/13/2021 10:15 EDT) Organism ID Less than 10,000 CFU/ml usual urogenital tiffanie. 06/15/2021 7:[address] [facility] Urine URINE SPECIMEN COLLECTION, CLEAN CATCH / Unknown Urine Collect / Unknown 06/13/2021 10:15 EDT 06/13/2021 10:46 EDT us Samson Garcia MD MICROBIOLOGY - GENERAL ORDER YANN Final Result [facility] [address] [place] [address] * (ABNORMAL) URINE CHEMICAL (DIP) & SEDIMENT (MICRO) WITH REFLEX TO CULTURE (06/13/2021 10:15 EDT) Color UA Yellow Colorless, Yellow 06/13/2021 10:[address] [facility] Clarity UA Clear Clear 06/13/2021 10:[address] [facility] Glucose UA Negative Negative 06/13/2021 10:46 [facility] Bilirubin UA Negative Negative 06/13/2021 10:46 [facility] Ketones UA Negative Negative 06/13/2021 10:46 [facility] Specific [place], Urine 1.031 1.001 - 1.035 06/13/2021 10:46 [facility] Blood UA Trace(A) Negative 06/13/2021 10:46 [facility] Urobilinogen UA Normal Normal mg/dL 06/13/2021 10:46 [facility] Nitrite UA Negative Negative 06/13/2021 10:46 [facility] Leukocyte Esterase UA 3+(A) Negative 06/13/2021 10:46 [facility] Protein UA Negative Negative 06/13/2021 10:46 [facility] pH, UA 6.5 4.6 - 8.0 06/13/2021 10:46 [facility] Urine RBC Count, Auto 3 - 10(A) 0 - 2 Cells/HPF 06/13/2021 10:46 [facility] Urine WBC Count, Auto 4 - 10(A) 0 - 3 Cells/HPF 06/13/2021 10:46 [facility] Urine Squamous Count, Auto Few(A) None Seen Cells/HPF 06/13/2021 10:46 [facility] Urine Hyaline Cast Count, Auto <=10 <=10 Casts/LPF 06/13/2021 10:46 [facility] Urine Bacteria Count, Auto None Seen None Seen Bacteria/HP F 06/13/2021 10:46 [facility] UA Small Round Cells Few Transitional Epithelial Cells(A) None Seen per HPF 06/13/2021 10:46 [facility] Urine URINE SPECIMEN COLLECTION, CLEAN CATCH / Unknown Urine Collect / Unknown 06/13/2021 10:15 EDT 06/13/2021 10:[address] [facility] - 06/13/2021 10:46 EDT A Urine Culture test has been reflexively ordered based on result criteria from the Urine Sediment Analysis. Urine Sediment Analysis results are unreliable on urines that are unrefrigerated for >2 hrs or refrigerated >8 hrs. us Samson Garcia MD URINALYSIS ORDERABLES Final Result [facility] [address] [place] [address] * CT ABDOMEN PELVIS W CONTRAST (06/13/2021 2:28 EDT) Anatomical Region Laterality Modality Body, Abdomen, Pelvis, Abdomen and Pelvis Computed Tomography 06/13/2021 8:15 EDT Impressions 06/13/2021 8:15 EDT 1. ??Cirrhotic liver with stigmata of portal hypertension including marked splenomegaly and a spontaneous portosystemic shunt in hepatic segment 8. No ascites. 2. ??Unchanged nonocclusive thrombus along the wall of the main portal vein and splenic vein. 3. ??New right-sided hydroureteronephrosis with tapering of the distal ureter where it crosses the iliac vessels. 4. ??Atherosclerosis. 5. ??Prior right anterior hernia repair. 6. ??Unchanged left adrenal nodule. I have personally reviewed the images and the above interpretation and agree with the findings. Narrative 06/13/2021 8:[address] ABDOMEN PELVIS W CONTRAST ??06/13/2021 12:30 AM Signs and Symptoms/Comments: ?? Upper abd ttp, h/o portal vein thrombosis; Abdominal pain, acute, nonlocalized Technique: CT of the abdomen and pelvis was performed following the administration intravenous contrast; coronal and sagittal multiplanar reconstructions generated. Comparison: CT abdomen pelvis 05/08/2021. Findings: Lower chest: Refer to dedicated chest CT obtained concurrently. Hepatobiliary: A cirrhotic configuration of the liver with stigmata of portal hypertension. No discrete hepatic lesion identified. An intrahepatic spontaneous portosystemic shunt is present in hepatic segment 8. Biliary tree dilatation is unchanged from prior. The gallbladder surgically absent.. Biliary ductal dilatation is unchanged. Spleen, pancreas, adrenal glands: There is redemonstration of marked enlargement of the spleen which now measures approximately 21 cm in maximum coronal dimension. Hypoattenuating lesion at the inferior tip of the subcapsular spleen is unchanged from prior, likely small infarction.. The pancreas is atrophic. Left adrenal nodule is unchanged from prior, likely adrenal adenoma. The right adrenal gland is normal in appearance. Kidneys, ureters, bladder: There is mild hydroureteronephrosis on the right with tapering at the level of the ureter crossing the iliac vessels. There is minimal hydronephrosis on the left. The kidneys enhance symmetrically The urinary bladder is unremarkable. Uterus, ovaries: Uterus is surgically absent. No adnexal mass. Bowel: Although the stomach is nondistended, there is apparent mild thickening and haziness of the wall, likely sequela of portal gastropathy. No evidence of obstruction. Scattered noninflamed colonic diverticula are present. Peritoneal cavity / Subperitoneal space: Multiple surgical clips are present in the anterior abdomen. No free air or drainable collection. A calcification to the right of the ureter (image #180) is unchanged from prior. Multiple abnormal varices are present. Partial decompression of the portal venous system through the anterior abdominal wall and perirectal portosystemic, unchanged Lymphovascular: There is redemonstration of a chronic thrombus along the wall of the main portal vein and splenic vein, unchanged compared to 2 months prior. No new portal venous system thrombi or downstream emboli. Scattered vascular calcifications are present in the normal caliber abdominal aorta. Abdominal wall: Hernia mesh repair material is seen in the right anterior abdominal wall. Musculoskeletal: Multilevel degenerative changes are seen in the included spine. No concerning osseous lesion or evidence of acute fracture. Boiler Testing Technician: No additional findings. Procedure Note Ry Verde MD - 06/13/2021 CT ABDOMEN PELVIS W CONTRAST 06/13/2021 12:30 AM Signs and Symptoms/Comments: Upper abd ttp, h/o portal vein thrombosis; Abdominal pain, acute,nonlocalized Technique: CT of the abdomen and pelvis was performed following the administrationintravenous contrast; coronal and sagittal multiplanar reconstructionsgenerated. Comparison: CT abdomen pelvis 05/08/2021. Findings: Lower chest: Refer to dedicated chest CT obtained concurrently. Hepatobiliary: A cirrhotic configuration of the liver with stigmata ofportal hypertension. No discrete hepatic lesion identified. Anintrahepatic spontaneous portosystemic shunt is present in hepatic segment8. Biliary tree dilatation is unchanged from prior. The gallbladdersurgically absent.. Biliary ductal dilatation is unchanged. Spleen, pancreas, adrenal glands: There is redemonstration of markedenlargement of the spleen which now measures approximately 21 cm inmaximum coronal dimension. Hypoattenuating lesion at the inferior tip ofthe subcapsular spleen is unchanged from prior, likely small infarction..The pancreas is atrophic. Left adrenal nodule is unchanged from prior,likely adrenal adenoma. The right adrenal gland is normal in appearance. Kidneys, ureters, bladder: There is mild hydroureteronephrosis on theright with tapering at the level of the ureter crossing the iliac vessels.There is minimal hydronephrosis on the left. The kidneys enhancesymmetrically The urinary bladder is unremarkable. Uterus, ovaries: Uterus is surgically absent. No adnexal mass. Bowel: Although the stomach is nondistended, there is apparent mildthickening and haziness of the wall, likely sequela of portal gastropathy.No evidence of obstruction. Scattered noninflamed colonic diverticula arepresent. Peritoneal cavity / Subperitoneal space: Multiple surgical clips arepresent in the anterior abdomen. No free air or drainable collection. Acalcification to the right of the ureter (image #180) is unchanged fromprior. Multiple abnormal varices are present. Partial decompression of theportal venous system through the anterior abdominal wall and perirectalportosystemic, unchanged Lymphovascular: There is redemonstration of a chronic thrombus along thewall of the main portal vein and splenic vein, unchanged compared to 2months prior. No new portal venous system thrombi or downstream emboli.Scattered vascular calcifications are present in the normal caliberabdominal aorta. Abdominal wall: Hernia mesh repair material is seen in the right anteriorabdominal wall. Musculoskeletal: Multilevel degenerative changes are seen in the includedspine. No concerning osseous lesion or evidence of acute fracture. Boiler Testing Technician: No additional findings. IMPRESSION 1. Cirrhotic liver with stigmata of portal hypertension including markedsplenomegaly and a spontaneous portosystemic shunt in hepatic segment 8.No ascites. 2. Unchanged nonocclusive thrombus along the wall of the main portal veinand splenic vein. 3. New right-sided hydroureteronephrosis with tapering of the distalureter where it crosses the iliac vessels. 4. Atherosclerosis. 5. Prior right anterior hernia repair. 6. Unchanged left adrenal nodule. I have personally reviewed the images and the above interpretation andagree with the findings. us Samson Garcia MD IMG CT ORDERABLES Final Resu lt * CT ANGIO CHEST PE PROTOCOL (06/13/2021 2:28 EDT) Anatomical Region Laterality Modality Chest Computed Tomogra phy 06/13/2021 9:31 EDT Impressions 06/13/2021 9:31 EDT 1. ??No evidence of pulmonary embolism. 2. ??Aortic and coronary atherosclerosis. 3. ??Small airway disease, may be chronic e.g. smoking-related 4. ??Suspect early changes of hepatopulmonary syndrome. I have personally reviewed the images and the above interpretation and agree with the findings. Narrative 06/13/2021 9:[address] ANGIO CHEST PE PROTOCOL ??06/13/2021 12:30 AM Clinical History/Comments: Shortness of breath Technique: A [...] Exam description: CTA of the chest Comparison: CT PE 04/13/2021.. Findings: Opacification of the pulmonary vasculature is good. No acute or chronic emboli are seen within the pulmonary arterial vasculature.Main pulmonary arteries are upper normal caliber. Mild dilatation of the ??segmental pulmonary arteries with subpleural teleangiectasia. Lower neck: No abnormalities. Chest wall soft tissues: No abnormalities. Mediastinum and leobardo: No enlarged mediastinal or hilar lymph nodes. ??The esophagus appears normal. Heart and mediastinal vasculature: ??Vascular calcifications are present in the thoracic aorta. Minimal opacification is present in the coronary arteries. The cardiac chambers are normal in size specifically the right ventricle is not dilated.. Large airways: ??There is mild diffuse large airways thickening. Lungs: ??A small cyst is present in the lingula. Scattered areas of bandlike atelectasis are seen in both lungs. Regional bronchial wall thickening. Heterogeneous lung attenuation. Pleura: No abnormalities. Upper abdomen (limited to upper abdomen, not optimized for abdominal imaging): Refer to dedicated CT of the abdomen and pelvis obtained concurrently. Bones: ??No significant abnormalities. Procedure Note Ry Verde MD - 06/13/2021 CT ANGIO CHEST PE PROTOCOL 06/13/2021 12:30 AM Clinical History/Comments: Shortness of breath Technique: A [...] Exam description: CTA of the chest Comparison: CT PE 04/13/2021.. Findings: Opacification of the pulmonary vasculature is good. No acute or chronicemboli are seen within the pulmonary arterial vasculature.Main pulmonaryarteries are upper normal caliber. Mild dilatation of the segmentalpulmonary arteries with subpleural teleangiectasia. Lower neck: No abnormalities. Chest wall soft tissues: No abnormalities. Mediastinum and leobardo: No enlarged mediastinal or hilar lymph nodes. Theesophagus appears normal. Heart and mediastinal vasculature: Vascular calcifications are present inthe thoracic aorta. Minimal opacification is present in the coronaryarteries. The cardiac chambers are normal in size specifically the rightventricle is not dilated.. Large airways: There is mild diffuse large airways thickening. Lungs: A small cyst is present in the lingula. Scattered areas ofbandlike atelectasis are seen in both lungs. Regional bronchial wallthickening. Heterogeneous lung attenuation. Pleura: No abnormalities. Upper abdomen (limited to upper abdomen, not optimized for abdominalimaging): Refer to dedicated CT of the abdomen and pelvis obtainedconcurrently. Bones: No significant abnormalities. IMPRESSION 1. No evidence of pulmonary embolism. 2. Aortic and coronary atherosclerosis. 3. Small airway disease, may be chronic e.g. smoking-related 4. Suspect early changes of hepatopulmonary syndrome. I have personally reviewed the images and the above interpretation andagree with the findings. us Samson Garcia MD IMG CT ORDERABLES Final Resu lt * CT CERVICAL SPINE WO CONTRAST (06/13/2021 2:28 EDT) Anatomical Region Laterality Modality Computed Tomogra phy 06/13/2021 8:42 EDT Impressions 06/13/2021 8:42 EDT No acute cervical spine fractures. I have personally reviewed the images and the above interpretation and agree with the findings. Narrative 06/13/2021 8:42 EDT EXAM: CT CERVICAL SPINE WO CONTRAST HISTORY: Neck trauma (Age => 65y) TECHNIQUE: CT cervical spine without contrast. Structured report code: [id number] COMPARISON: CT cervical spine 08/18/2015. FINDINGS: SURGICAL CHANGES: None. FRACTURES: None. ALIGNMENT: Straightening of lordosis with minimal retrolisthesis of C4 on C5 and C5 on C6. BONES: No significant vertebral body height loss. No concerning lesions. INTERVERTEBRAL DISCS: Multilevel degenerative disc disease with height loss and bony proliferative changes. JOINTS: Mild multilevel degenerative facet arthropathy. Multilevel uncovertebral hypertrophy. Anterior atlanto-axial, lateral atlanto-axial, and atlanto-occipital joints are unremarkable aside from degenerative changes. No concerning joint space widening. SPINAL CANAL: No high-grade stenosis. Mild to moderate stenosis noted at C4-C5 and C5-C6. NEURAL FORAMINA: Bilateral stenosis at C4-C5 and C5-C6 secondary to uncovertebral hypertrophy. LUNG APICES: Evaluation separately reported. EXTRASPINAL SOFT TISSUES: Surgical clips noted in the left neck. VISIBLE INTRACRANIAL CONTENTS: Evaluation separately reported. Procedure Note Inderjit Weller MD - 06/13/2021 EXAM: CT CERVICAL SPINE WO CONTRAST HISTORY: Neck trauma (Age => 65y) TECHNIQUE: CT cervical spine without contrast. Structured report code:[id number] COMPARISON: CT cervical spine 08/18/2015. FINDINGS: SURGICAL CHANGES: None. FRACTURES: None. ALIGNMENT: Straightening of lordosis with minimal retrolisthesis of C4 on C5 and C5on C6. BONES: No significant vertebral body height loss. No concerning lesions. INTERVERTEBRAL DISCS: Multilevel degenerative disc disease with height loss and bonyproliferative changes. JOINTS: Mild multilevel degenerative facet arthropathy. Multilevel uncovertebralhypertrophy. Anterior atlanto-axial, lateral atlanto-axial, andatlanto-occipital joints are unremarkable aside from degenerative changes.No concerning joint space widening. SPINAL CANAL: No high-grade stenosis. Mild to moderate stenosis noted at C4-C5 andC5-C6. NEURAL FORAMINA: Bilateral stenosis at C4-C5 and C5-C6 secondary to uncovertebralhypertrophy. LUNG APICES: Evaluation separately reported. EXTRASPINAL SOFT TISSUES: Surgical clips noted in the left neck. VISIBLE INTRACRANIAL CONTENTS: Evaluation separately reported. IMPRESSION No acute cervical spine fractures. I have personally reviewed the images and the above interpretation andagree with the findings. us Samson Garcia MD IM CT ORDERABLES Final Resu lt * CT HEAD WO CONTRAST (06/13/2021 2:28 EDT) Anatomical Region Laterality Modality Head Computed Tomogra phy 06/13/2021 8:39 EDT Impressions 06/13/2021 8:39 EDT No acute intracranial hemorrhage or calvarial fracture. I have personally reviewed the images and the above interpretation and agree with the findings. Narrative 06/13/2021 8:39 EDT EXAM: CT HEAD WO CONTRAST HISTORY: Trauma. TECHNIQUE: CT head without contrast. Structured report code: [id number] COMPARISON: Head CT 05/08/2021 FINDINGS: PARENCHYMA: No evidence of infarct. No acute parenchymal hemorrhage. No mass or midline shift. There is mild diffuse parenchymal volume loss. A few scattered hypodensities in the supratentorial white matter are nonspecific but typically represent the sequela of chronic microangiopathy. EXTRA-AXIAL SPACES: No acute extra-axial hemorrhage. No extra-axial collection. No extra-axial mass. VENTRICULAR SYSTEM: No obstructive hydrocephalus. No acute intraventricular hemorrhage. VESSELS: Limited evaluation without IV contrast. Faint calcifications are present in the carotid siphons. BONES: No concerning lesions. No evidence of fracture. Poor dentition noted. ORBITS: No significant abnormality. PARANASAL SINUSES/MASTOID AIR CELLS: Predominantly clear. EXTRACRANIAL SOFT TISSUES: Unremarkable. Procedure Note Inderjit Weller MD - 06/13/2021 EXAM: CT HEAD WO CONTRAST HISTORY: Trauma. TECHNIQUE: CT head without contrast. Structured report code: [id number] COMPARISON: Head CT 05/08/2021 FINDINGS: PARENCHYMA: No evidence of infarct. No acute parenchymal hemorrhage. No mass ormidline shift. There is mild diffuse parenchymal volume loss. A fewscattered hypodensities in the supratentorial white matter are nonspecificbut typically represent the sequela of chronic microangiopathy. EXTRA-AXIAL SPACES: No acute extra-axial hemorrhage. No extra-axial collection. No extra-axialmass. VENTRICULAR SYSTEM: No obstructive hydrocephalus. No acute intraventricular hemorrhage. VESSELS: Limited evaluation without IV contrast. Faint calcifications are presentin the carotid siphons. BONES: No concerning lesions. No evidence of fracture. Poor dentition noted. ORBITS: No significant abnormality. PARANASAL SINUSES/MASTOID AIR CELLS: Predominantly clear. EXTRACRANIAL SOFT TISSUES: Unremarkable. IMPRESSION No acute intracranial hemorrhage or calvarial fracture. I have personally reviewed the images and the above interpretation andagree with the findings. us Samson Garcia MD IMG CT ORDERABLES Final Resu lt * US LOWER VENOUS DUPLEX (DVT) BILATERAL (06/13/2021 1:18 EDT) Anatomical Region Laterality Modality Vascular Ultrasound 06/13/2021 7:46 EDT Impressions 06/13/2021 7:46 EDT No evidence of deep venous thrombosis in either lower extremity. I have personally reviewed the images and the above interpretation and agree with the findings. Narrative 06/13/2021 7:46 EDT US LOWER VENOUS DUPLEX (DVT) BILATERAL ??06/13/2021 12:25 AM SIGNS AND SYMPTOMS/COMMENTS: ??bilateral leg pain and swelling COMPARISON: Lower extremity venous ultrasound dated April 19, 2020. TECHNIQUE: Grayscale, cine, color Doppler, and spectral [...] demonstrates normal Doppler flow/waveforms and compression. Other: No evidence of subcutaneous edema. LEFT LEG: Deep veins above the knee: [...] demonstrates normal Doppler flow/waveforms and compression. Other: No evidence of subcutaneous edema. Procedure Note Paola Ramires MD - 06/13/2021 US LOWER VENOUS DUPLEX (DVT) BILATERAL 06/13/2021 12:25 AM SIGNS AND SYMPTOMS/COMMENTS: bilateral leg pain and swelling COMPARISON: Lower extremity venous ultrasound dated April 19, 2020. TECHNIQUE: Grayscale, cine, color Doppler, and spectral [...] veindemonstrates normal Doppler flow/waveforms and compression. Other: No evidence of subcutaneous edema. LEFT LEG: Deep veins above the knee: [...] veindemonstrates normal Doppler flow/waveforms and compression. Other: No evidence of subcutaneous edema. IMPRESSION No evidence of deep venous thrombosis in either lower extremity. I have personally reviewed the images and the above interpretation andagree with the findings. Samson Garcia MD [facility] [place] US VASCULAR ORDERABLES F inal Result * (ABNORMAL) PROTIME (06/13/2021 0:29 EDT) I.N.R. 1.4(H) 0.9 - 1.1 Ratio 06/13/2021 0:[address] [facility] Pro Time 15.7(H) 10.4 - 12.6 secs 06/13/2021 0:[address] [facility] Blood VENOUS BLOOD / Unknown Venipuncture / Unknown 06/13/2021 0:29 EDT 06/13/2021 0:[address] [facility] - 06/13/2021 0:48 EDT Moderate Intensity Coumadin INR = 2.0-3.0 Adjustments in anticoagulant therapy dose should be based on the INR and NOT on the Protime. Samson Garcia MD HEMATOLOGY & PF4 ORDERABLES Final Result Performing Organization Address City/[facility] Co de Phone Number [facility] [address] [place] [address] * PTT (06/13/2021 0:29 EDT) Pathologist [facility] PTT 34 26 - 37 secs 06/13/2021 0:[address] [facility] Blood VENOUS BLOOD / Unknown Venipuncture / Unknown 06/13/2021 0:29 EDT 06/13/2021 0:31 EDT Samson Garcia MD HEMATOLOGY & PF4 ORDERABLES Final Result Performing Organization Address [facility] de Phone Number [facility] [address] [place] [address] * (ABNORMAL) DIFFERENTIAL, AUTOMATED MANUAL (06/12/2021 23:55 EDT) % Neutrophils 80.0 % 06/13/2021 0:[address] [facility] % Lymphocytes 13.9 % 06/13/2021 0:[address] [facility] % Monocytes 3.5 % 06/13/2021 0:[address] [facility] % Eosinophils 0.9 % 06/13/2021 0:[address] [facility] % Basophils 1.7 % 06/13/2021 0:[address] [facility] Ovalocytes 2+ 06/13/2021 0:[address] [facility] Large Platelets Present 0:[address] [facility] Absolute Neutrophils 0.77(L) 2.20 - 8.85 K/cmm 06/13/2021 0:[address] [facility] Absolute Lymphocytes 0.13(L) 1.09 - 3.30 K/cmm 06/13/2021 0:[address] [facility] Absolute Monocytes 0.03(L) 0.10 - 0.80 K/cmm 06/13/2021 0:[address] [facility] Absolute Eosinophils 0.01(L) 0.03 - 0.61 K/cmm 06/13/2021 0:[address] [facility] ABS Basophils 0.02 0.01 - 0.11 K/cmm 06/13/2021 0:[address] [facility] Blood VENOUS BLOOD / Unknown Venipuncture / Unknown 06/12/2021 23:55 EDT 06/13/2021 0:00 EDT Samson Garcia MD HEMATOLOGY & PF4 ORDERABLES Final Result Performing Organization Address City/[facility]/ZIP Co de Phone Number [facility] [address] [place] [address] * LACTIC ACID (06/12/2021 23:55 EDT) Pathologist [facility] Lactic Acid 0.7 <=2.0 mmol/L 06/13/2021 0:[address] [facility] Blood VENOUS BLOOD / Unknown Venipuncture / Unknown 06/12/2021 23:55 EDT 06/13/2021 0:00 EDT Samson Garcia MD CHEMISTRY & BLOOD GAS ORDERA BLES Final Result Performing Organization Address City/[facility]/ZIP Co de Phone Number [facility] [address] [place] [address] * NT PRO BNP (06/12/2021 23:55 EDT) NT-pro BNP 83 <125 pg/mL 06/13/2021 0:[address] [facility] Comment:The results of this assay can be falsely lowered due to consumption of Biotin. Blood VENOUS BLOOD / Unknown Venipuncture / Unknown 06/12/2021 23:55 EDT 06/13/2021 0:00 EDT Samson Garcia MD CHEMISTRY & BLOOD GAS ORDERA BLES Final Result Performing Organization Address City/[facility]/ZIP Co de Phone Number [facility] [address] [place] [address] * TROPONIN I (06/12/2021 23:55 EDT) Pathologist [facility] Troponin I (ng/mL) <0.034 <0.034 ng/mL 06/13/2021 0:[address] [facility] Blood VENOUS BLOOD / Unknown Venipuncture / Unknown 06/12/2021 23:55 EDT 06/13/2021 0:[address] [facility] - 06/13/2021 0:28 EDT The results of this assay can be falsely lowered due to the consumption of Biotin. us Samson Garcia MD CHEMISTRY & BLOOD GAS ORDERA BLES Final Result Performing Organization Address [facility]/ZIP Co de Phone Number [facility] [address] [place] [address] * MAGNESIUM (06/12/2021 23:55 EDT) Pathologist [facility] Magnesium 1.8 1.7 - 2.8 mg/dL 06/13/2021 0:[address] [facility] Blood VENOUS BLOOD / Unknown Venipuncture / Unknown 06/12/2021 23:55 EDT 06/13/2021 0:00 EDT us Samson Garcia MD CHEMISTRY & BLOOD GAS ORDERA BLES Final Result [facility] [address] [place] [address] * LIPASE (06/12/2021 23:55 EDT) Pathologist [facility] Lipase 39 <251 U/L 06/13/2021 0:17 [facility] Blood VENOUS BLOOD / Unknown Venipuncture / Unknown 06/12/2021 23:55 EDT 06/13/2021 0:00 EDT us Samson Garcia MD CHEMISTRY & BLOOD GAS ORDERA BLES Final Result [facility] [address] [place] [address] * (ABNORMAL) COMPREHENSIVE METABOLIC PANEL (CMP) (06/12/2021 23:55 EDT) Sodium 138 136 - 145 mEq/L 06/13/2021 0:17 [facility] Potassium 4.3 3.5 - 5.0 mEq/L 06/13/2021 0:17 [facility] Chloride 101 96 - 110 mEq/L 06/13/2021 0:17 [facility] CO2 Total 29 22 - 32 mEq/L 06/13/2021 0:17 [facility] Glucose 91 70 - 100 mg/dL 06/13/2021 0:17 [facility] BUN 21 10 - 26 mg/dL 06/13/2021 0:17 [facility] Creatinine 1.34(H) 0.52 - 1.04 mg/dL 06/13/2021 0:17 [facility] eGFR 43(L) >60 mL/min/1.7 3m2 06/13/2021 0:17 [facility] Comment:eGFR calculated lobito coppola CKD-EPI equation for non- Americans. Multiply eGFR by 1.16 for patients. Total Protein 5.7(L) 6.3 - 8.2 g/dL 06/13/2021 0:17 [facility] Albumin 3.3(L) 3.4 - 4.9 g/dL 06/13/2021 0:17 [facility] Alkaline Phosphatase 86 38 - 126 U/L 06/13/2021 0:17 [facility] AST 20 15 - 46 U/L 06/13/2021 0:17 [facility] ALT 12 <35 U/L 06/13/2021 0:17 [facility] Bilirubin, Total 0.6 <1.4 mg/dL 06/13/20 0:17 [facility] Calcium 8.7 8.5 - 10.5 mg/dL 06/13/2021 0:17 [facility] Calculated Calcium 9.3 8.5 - 10.5 mg/dL 06/13/2021 0:17 [facility] Blood VENOUS BLOOD / Unknown Venipuncture / Unknown 06/12/2021 23:55 EDT 06/13/2021 0:00 EDT us Samson Garcia MD CHEMISTRY & BLOOD GAS ORDERA BLES Final Result [facility] [address] [place] [phone] * (ABNORMAL) COMPLETE BLOOD COUNT AND DIFFERENTIAL (06/12/2021 23:55 EDT) WBC 0.96(LL) 4.00 - 12.40 K/cmm 06/13/2021 0:10 [facility] RBC 3.30(L) 3.86 - 5.04 M/cmm 06/13/2021 0:10 [facility] Hemoglobin 9.1(L) 11.6 - 15.2 gm/dL 06/13/2021 0:10 [facility] HCT 28.3(L) 34.9 - 44.4 % 06/13/2021 0:10 [facility] MCV 86 81 - 98 fl 06/13/2021 0:10 [facility] MCH 27.6 26.7 - 33.3 pg 06/13/2021 0:10 [facility] MCHC 32.2 32.1 - 35.9 gm/dL 06/13/2021 0:10 [facility] RDW-CV 15.7(H) <14.7 % 06/13/2021 0:[address] [facility] RDW-SD 48.9 <50.4 fl 06/13/2021 0:[address] [facility] PLT 39(L) 141 - 377 K/cmm 06/13/2021 0:[address] [facility] MPV 10.7 9.5 - 12.7 fl 06/13/2021 0:[address] [facility] Type of Differential: Manual 06/13/2021 0:[address] [facility] Blood VENOUS BLOOD / Unknown Venipuncture / Unknown 06/12/2021 23:55 EDT 06/13/2021 0:00 EDT us Samson Garcia MD PACKAGES & DNA PROBE ORDERAB LES Final Result Performing Organization Address City/State/[facility] Co de Phone Number [facility] [address] [place] [address] * EKG 12-LEAD (06/12/2021 20:38 EDT) 06/12/2021 20:[address] [facility] EKG - 06/23/2021 10:48 EDT ?[facility] Emergency ? Test Date: ?2021-06-12 Pat Name: ? PHYLISS BOOTHE ?Department: ?? ED ? Room: ? Gender: ? Female ? Automotive Services Manager: ?? [id number] : ?1960 ? Requested By: GENEVIEVE Wheeler Number: [id number] ? Reading : ?? KERMIT CUBA MD ? Measurements Intervals ?[place] ? Rate: ? 70 ? P: ?56 IN: ? 152 ?QRS: ?59 QRSD: ? 101 ?T: ?43 QT: ? 389 ? QTc: ?420 ? Interpretive Statements SINUS RHYTHM Compared to ECG 06/12/2021 19:38:18 Myocardial infarct finding no longer present I reviewed the tracing and have either agreed or edited the findings in this report. Electronically Signed On 06-23-2021 10:48:08 EDT by KERMIT CUBA MD. Procedure Note Kermit Cuba MD - 06/23/2021 [facility] Emergency Test Date: 2021-06-12 Pat Name: TARA BOOTHE Department: ED Room: Gender: Female Automotive Services Manager: [id number] : 1960 Requested By: GENEVIEVE Irizarry Order Number: [id number] Jose MD: KERMIT CUBA MD Measurements Intervals [place] Rate: 70 P: 56 IN: 152 QRS: 59 QRSD: 101 T: 43 QT: 389 QTc: 420 Interpretive Statements SINUS RHYTHM Compared to ECG 06/12/2021 19:38:18 Myocardial infarct finding no longer present I reviewed the tracing and have either agreed or edited the findings inthis report. Electronically Signed On 06-23-2021 10:48:08 EDT by KERMIT RICH. us Jennifer Kam MD MPH CARDIAC ECG ORDERABLES Final Result [facility] EKG documented in this encounter Visit Diagnoses Diagnosis Pancytopenia (HCC-CMS)- Primary Other pancytopenia Chronic pain syndrome documented in this encounter Administered Medications Inactive Administered Medications - up to 3 most recent administrations Medication Order MAR Action Action Date Dose Rate Site furosemide (LASIX) injection 20 mg 20 mg, intravenous, NOW X1, 1 dose, On 06/13/21 at 0100, STAT Given 06/13/2021 1:19 EDT 20 mg HYDROmorphone (DILAUDID) tablet 2 mg 2 mg, oral, NOW X1, 1 dose, On 06/13/21 at 1015, STAT Given 06/13/2021 10:16 EDT 2 mg iohexoL (OMNIPAQUE 350) solution 100 mL 100 mL, intravenous, Once in imaging, 1 dose, Starting on 06/13/21 at 0219, Until 06/13/21 at 0228, Routine, Imaging Protocol Orders Given 06/13/2021 2:28 EDT 115 mL lactated ringers BOLUS 500 mL 500 mL, intravenous, NOW X1, 1 dose, On 06/13/21 at 0100, STAT New Bag 06/13/2021 1:19 EDT 500 mL lactated ringers BOLUS 500 mL 500 mL, intravenous, NOW X1, 1 dose, On 06/13/21 at 0800, STAT New Bag 06/13/2021 8:13 EDT 500 mL ondansetron (PF) (ZOFRAN) 4 mg/2 mL injection 1 dose, Starting on 06/13/21 at 0203, Until 06/13/21 at 0208 ondansetron (PF) (ZOFRAN) injection 4 mg 4 mg, intravenous, NOW X1, 1 dose, On 06/13/21 at 0215, STAT Given 06/13/2021 2:08 EDT 4 mg ondansetron (ZOFRAN-ODT) disintegrating tablet 4 mg 4 mg, oral, NOW X1, 1 dose, On 06/13/21 at 1015, STAT Given 06/13/2021 10:16 EDT 4 mg documented in this encounter Active and Recently Administered Medications Times are shown in EDT. Scheduled Medication Order 06/11/2021 06/12/2021 06/13/2021 furosemide (LASIX) injection 20 mg (COMPLETED) 20 mg, intravenous, NOW X1, 1 dose, On 06/13/21 at 0100, STAT 0119 (Given - Provid er: Jesus Kahn RN) HYDROmorphone (DILAUDID) tablet 2 mg (COMPLETED) 2 mg, oral, NOW X1, 1 dose, On 06/13/21 at 1015, STAT 1016 (Given - Provid er: Ne Villarreal RN) iohexoL (OMNIPAQUE 350) solution 100 mL (COMPLETED) 100 mL, intravenous, Once in imaging, 1 dose, Starting on 06/13/21 at 0219, Until 06/13/21 at 0228, Routine, Imaging Protocol Orders 0228 (Given - Provid er: Cielo Hickey) lactated ringers BOLUS 500 mL (COMPLETED) 500 mL, intravenous, NOW X1, 1 dose, On 06/13/21 at 0100, STAT 0119 (New Bag - Prov ider: Jesus Khan RN)0300 (Completed - Provider: Ne Villarreal RN - Comment: Completed prior to this RN shift) lactated ringers BOLUS 500 mL (COMPLETED) 500 mL, intravenous, NOW X1, 1 dose, On 06/13/21 at 0800, STAT 0813 (New Bag - Prov ider: Ne Villarreal RN) ondansetron (PF) (ZOFRAN) injection 4 mg (COMPLETED) 4 mg, intravenous, NOW X1, 1 dose, On 06/13/21 at 0215, STAT 0208 (Given - Provid er: Jesus Khan RN) ondansetron (ZOFRAN-ODT) disintegrating tablet 4 mg (COMPLETED) 4 mg, oral, NOW X1, 1 dose, On 06/13/21 at 1015, STAT 1016 (Given - Provid er: Ne Villarreal RN) documented in this encounter Orders Discharge Count Last Ordered Date First Orde red Date DISCHARGE PATIENT 1 06/13/2021 documented in this encounter Additional Health Concerns Infection Onset Date Last Indicated Resolved Time R/O COVID-19 06/12/2021 06/12/2021 06/12/2021 23:4 3 EDT documented as of this encounter Care Teams Rack Room Worker Relationship Specialty Start Date End Date Emigdio Veronica MD [address] [place] [id number] PCP - General Internal Medicine - Primary Care 05/22/20 02/21/24 documented as of this encounter
--- OUTSIDE RECORDS SUMMARY | 2024-11-22 17:14 | XMS_ITS | Encounter Summary ---
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 Advised at this point, obtaining a blood pressure cuff would be most viable option. The patient indicates understanding of these issues and agrees with the plan. * Telephone Encounter - Emigdio Fernandez MD - 06/16/2021 1600 EDT We will continue to monitor weights. While I think the telemetry program would be a good fit, it is unclear if this program is acceptingnew patients. I am uncertain if the patient has a [facility] nurse, but that would be another good optionto get vitals. Realistically though I think social will just need to help us get her a home blood pressure cuff. * Telephone Encounter - Heike Mcleod RN - 06/16/2021 1331 EDT Call to Patient Relayed message per dr fernandez for #1 2. Weights today: 211.9 lbs; first thing Yesterday weight as 204 or 205 lbs. States ankles are very swollen. Color is not too bad. Below knee all way down has been discolored; right red. Feet from ankles down were black. Sent photo in [facility] on 06/12; see in scans 3. Pt wondering about Telemonitoring for vitals. Hoping they could help monitor her BP as she has had issues with hypotension. Agreeable to Compr pain clinic referral and C[facility] referral. * Telephone Encounter - Emigdio Fernandez MD - 06/16/2021 1210 EDT 1. The ongoing use of dilaudid is a change in her pain regiment. While normally I would be happy toprescribe 28 day refills, we haven't reached that stability point. This is a relatively new medication for Tara combined with the fact that her renal function continues to fluctuate and that she is requesting her first chronic refill early for travel equates to atighter pill count and monitoring. Her VPMS record appears appropriate. 2. Agree with plan for blood work and holding diuretics. She should continue to track weights. Persistent elevations in weight and not perceived edema would be the objective finding prompt me to reconsider adding back diuretics before verifying her kidney function has returned to baseline. 3. My understanding is that [facility] will not see the patient solely for blood draws. In a separate telephone encounter [facility] had inquired about referring Tara to social work to discuss assistance with transportation. I was under the impression Gena had a social worker clinical already, but I have placedanother T referral for social worker clinical support. I am not convinced that Tara requires mcc for medication management at this time as she historically has had good understanding of her individual medications and how to take them. Chronic pain has been the underlying issue repeatedly. She perceives her pain as swelling in her legs and this triggers her to take more diuretics which cause hypotensive episodes, falls and ED presentations. As discussed at our last visit one month ago I will place a referral to the comprehensive pain clinic for additional evaluation and advice. At this time I see no obvious intervention for [facility] to assist. Agree with social work involvement though. * Telephone Encounter - Heike Mcleod RN - 06/16/2021 1046 EDT Call to pt Advised of message from dr fernandez 1. Leaving on 06/22, pt assuming dr fernandez can ok a 1 day early fill instead of 06/23 which is when she states she would be due. Per chart pt due on 06/24. Call to pharmacy, last p/u was on 05/27 for 28 day supply. Due on 24 of june. Spoke with herber Visit with dR Fernandez rescheduled to 07/02; dilaudid pended for dates 06/22 to 07/02. Pt was hoping fora full 28 day supply of dilaudid if possible, but per Dr fernandez's note below only pended enough toget her from 06/22 to 07/02 (#56) Pt Coming back 06/30. Going to [facility] and [place] with daughter she has not seen since . 2. Will get blood work this thurs or fri States she took her diuretics this AM but not take again until directed. 3. States she Had initial PT visit with home health today. PT and pt think she really just needs nursing care. Wondering if another referral needs to be sent over or if verbal order can be taken for mcc for medication management and blood draws? Transport to lab for blood work freq difficult as she needs to get rides To dr fernandez and [facility] * Telephone Encounter - Emigdio Fernandez MD - 06/16/2021 1012 EDT Her kidney function has continued to worsen on her increased dosages of her diuretics. She should continue to hold the medications until we can repeat a BMP and verify that her GFR is improving. As for the dilaudid we will need to perform a VPMS check before a vacation override refill will be sent. I can do this when I am back in clinic this afternoon. Additionally we need to know how long she will be out of the state and when she will be able to see us in clinic again. She should only receive enough dilaudid to cover her until her next appointment. So we need dates of her travel. For the record I don't think travel is the best idea right now given her ongoing medical problems (she was in the ED three days ago and has an MUSA), but obviously it is her choice. Should she reschedule the appointment needs to be in person. Phone is not an acceptable visit type any longer and would be inappropriate for the complaints we are managing. * Telephone Encounter - Lis Ibrahim RN - 06/16/2021 0937 EDT Called and spoke to Tara. Relayed GG's message and she states, I was told to hold the diureticsfor one day, maybe 2 depending on how I was feeling. Per discharge summary 06/13/21: I recommend you hold your spironolactone and Lasix today, if you feel well tomorrow, you may take as prescribed, if you do not feel well hold it another day and call your doctor on Tuesday. Zane agrees to daily weights and repeat BMP. Adv pt that nursing will clarify with CHAY as he may have decided to continue to hold diuretics to prevent another MUSA. 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 She reports that she is going on vacation with her daughter and wants to reschedule herappt on 06/25 with GG. Adv pt that nursing will discuss with GG- can appt on 06/25 be telephone (no ability to do ZOOM per pt) KAREN IBRAHIM RN 06/16/2021 9:42 * Telephone Encounter - Emigdio Fernandez MD - 06/16/2021 0837 EDT Triage, Tara is clearly having multiple ongoing health concerns She was last seen in the ED on 06/12- for nausea and vomiting, poor po intake and hypotension. She has been requesting increasing doses of her diuretics as an outpatient for perceived lower extremity edema. But similar to earlier this year increased dosage of diuretics appears to only trigger acute kidney injury and may have played a role in her recent hypotensive episodes. I received a request to cosign a refill of her spirolactone and I have declined this cosignature. She was appropriately advised to hold her diuretics on discharge from the ED and think this recommendation should remain. I would encourage her to stop both her lasix and spirolactone for now and obtain daily weights. We should repeat a BMP prior to our visit on 06/25 and I have ordered this lab. Please update her on thisplan. Ideally we would see her earlier for her health concerns, but I do not believe I have any openings before 06/25. * Telephone Encounter - Xuan Jimenez - 06/15/2021 0824 EDT Reason for Call: Hospital Discharge Follow Up Summary/Symptoms: Patient reports Tuesday06/12/21 she called here and was advised to go to Urgent Care and they transported her to the ED and they admitted her overnight. They have Home Health coming in and they will do the blood work for patient but they need orders. Patient will need hospital follow up phone call. Onset and Duration: 3 days Does the patient have a computer, laptop or smart phone with high speed & video capability? Yes If so, would they be interested in doing a video visit via Zoom? Yes Appointment Offered? No Xuan Jimenez 06/15/2021 8:24 documented in this encounter Plan of Treatment Upcoming Encounters Date Type Department Care Team (Late st Contact Info) Description 01/04/2025 13:00 EST Office Visit [facility] Ophthalmology - [address] [phone] Gagandeep Rome MD [address] [place] [address], [facility] [address] [place] [phone] 02/11/2025 13:30 EDT Telemedicine [facility] Hematology & Oncology - [address] [phone] Dana Padilla MD [address] [place] [address], [address] [place] [phone] documented as of this encounter Results * (ABNORMAL) BASIC METABOLIC PANEL (BMP) (06/18/2021 10:27 EDT) Sodium 136 136 - 145 mEq/L 06/18/2021 11:36 [facility] Potassium 4.5 3.5 - 5.0 mEq/L 06/18/2021 11:36 [facility] Chloride 101 96 - 110 mEq/L 06/18/2021 11:36 [facility] CO2 Total 28 22 - 32 mEq/L 06/18/2021 11:36 [facility] Glucose 92 70 - 100 mg/dL 06/18/2021 11:36 [facility] Calcium 8.9 8.5 - 10.5 mg/dL 06/18/2021 11:36 [facility] Calculated Calcium 9.2 8.5 - 10.5 mg/dL 06/18/2021 11:36 [facility] BUN 13 10 - 26 mg/dL 06/18/2021 11:36 [facility] Creatinine 1.07(H) 0.52 - 1.04 mg/dL 06/18/2021 11:36 [facility] eGFR 57(L) >60 mL/min/1.7 3m2 06/18/2021 11:36 [facility] Comment:eGFR calculated lobito coppola CKD-EPI equation for non- Americans. Multiply eGFR by 1.16 for patients. Blood VENOUS BLOOD / Unknown Venipuncture / Unknown 06/18/2021 10:27 EDT 06/18/2021 10:27 EDT us Emigdio Fernandez MD CHEMISTRY & BLOOD GAS OR DERABLES Final Result [facility] [address] [place] [address] documented in this encounter Visit Diagnoses Diagnosis MUSA (acute kidney injury) ([facility])- Primary Acute kidney failure, unspecified Chronic pain syndrome documented in this encounter Discontinued Medications Medication Sig Discontinue Reason Start Date End Da te HYDROmorphone (DILAUDID) 2 mg tablet Take 1 Tablet by mouth every 12 hours as needed for up to 28 days for Pain. Daily Max: 4 mg Reorder 05/27/2021 06/16/2021 documented as of this encounter Care Teams Services Clerk Relationship Specialty Start Date End Date Emigdio Fernandez MD [address] [place] [phone] PCP - General Internal Medicine - Primary Care 05/22/20 02/21/24 documented as of this encounter
--- OUTSIDE RECORDS SUMMARY | 2024-11-22 17:14 | XMS_ITS | Encounter Summary ---
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 [...] [facility] - [address] [phone] Gagandeep Rome MD [address] [facility], [facility] [address] [place] [phone] 02/11/2025 13:30 EDT Telemedicine [facility] Hematology & Oncology - [address] [phone] Dana Padilla MD [address] [place] [address], [facility] [address] [place] [phone] documented as of this encounter Procedures Procedure Name Priority Date/Time Associated Diagnosis Comments COMPLETE BLOOD COUNT STAT 06/25/2021 8:03 EDT Pancytopenia ([facility]) Portal vein thrombosis documented in this encounter Results * (ABNORMAL) COMPLETE BLOOD COUNT (06/25/2021 8:03 EDT) WBC 1.03(L) 4.00 - 12.40 K/cmm 06/25/2021 9:12 EDT [facility] RBC 3.44(L) 3.86 - 5.04 M/cmm 06/25/2021 9:12 EDT [facility] Hemoglobin 9.6(L) 11.6 - 15.2 gm/dL 06/25/2021 9:12 EDT [facility] HCT 30.0(L) 34.9 - 44.4 % 06/25/2021 9:12 EDT [facility] MCV 87 81 - 98 fl 06/25/2021 9:12 EDT [facility] MCH 27.9 26.7 - 33.3 pg 06/25/2021 9:12 EDT [facility] MCHC 32.0(L) 32.1 - 35.9 gm/dL 06/25/2021 9:12 EDT [facility] RDW-CV 16.4(H) <14.7 % 06/25/2021 9:12 EDT [facility] RDW-SD 51.8(H) <50.4 fl 06/25/2021 9:12 EDT [facility] PLT 41(L) 141 - 377 K/cmm 06/25/2021 9:12 EDT [facility] MPV 9.6 9.5 - 12.7 fl 06/25/2021 9:12 EDT [facility] Blood VENOUS BLOOD / Unknown Venipuncture / Unknown 06/25/2021 8:03 EDT 06/25/2021 8:04 EDT us Starr Paige MD HEMATOLOGY & PF4 ORDERABLES Final Result Performing Organization Address City/State/[facility] Co de Phone Number [facility] [address] [place] [address] documented in this encounter Visit Diagnoses Diagnosis Pancytopenia (HCC-CMS) Other pancytopenia Portal vein thrombosis documented in this encounter Care Teams Community Integration Specialist Relationship Specialty Start Date End Date Emigdio Veronica MD [address] [place] [phone] PCP - General Internal Medicine - Primary Care 05/22/20 02/21/24 documented as of this encounter
--- OUTSIDE RECORDS SUMMARY | 2024-11-22 17:14 | XMS_ITS | Encounter Summary ---
Author Organization [facility] Address [address] [place] [address] Care Team Providers Care Offset Second Press Operator Name Role Phone Emigdio Veronica MD Primary Care Provider + Encounter Details Date Type Department Care Team (Late st Contact Info) Description 06/12/2021 13:30 EDT Phlebotomy Only [facility] Laboratory Services - [address] [address] Biomedical [facility] Pancytopenia ([facility]); Portal vein thrombosis; Leg swelling Social History Tobacco Use Types Packs/Day Years [...] 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 Not [...] Office Visit [facility] Ophthalmology - [address] [phone] Gagandeep Rome MD [address] [facility], [address] [place] [phone] 02/11/2025 13:30 EDT Telemedicine [facility] [place] Hematology & Oncology - [address] [phone] Dana Padilla MD [address] [facility], [address] [place] [phone] documented as of this encounter Procedures Procedure Name Priority Date/Time Associated Diagnosis Comments COMPLETE BLOOD COUNT STAT 06/12/2021 13:32 EDT Pancytopenia (HCC-CMS) Portal vein thrombosis BASIC METABOLIC PANEL (BMP) Routine 06/12/2021 13:32 EDT Leg swelling documented in this encounter Results * (ABNORMAL) BASIC METABOLIC PANEL (BMP) (06/12/2021 13:32 EDT) Sodium 137 136 - 145 mEq/L 06/12/2021 14:33 EDT [facility] Potassium 4.8 3.5 - 5.0 mEq/L 06/12/2021 14:33 EDT [facility] Chloride 99 96 - 110 mEq/L 06/12/2021 14:33 EDT [facility] CO2 Total 27 22 - 32 mEq/L 06/12/2021 14:33 EDT [facility] Glucose 109(H) 70 - 100 mg/dL 06/12/2021 14:33 EDT [facility] Calcium 9.3 8.5 - 10.5 mg/dL 06/12/2021 14:33 T [facility] Calculated Calcium 9.5 8.5 - 10.5 mg/dL 06/12/2021 14:33 [facility] BUN 19 10 - 26 mg/dL 06/12/2021 14:33 [facility] Creatinine 1.29(H) 0.52 - 1.04 mg/dL 06/12/2021 14:33 [facility] eGFR 45(L) >60 mL/min/1.7 3m2 06/12/2021 14:33 [facility] Comment:eGFR calculated lobito coppola CKD-EPI equation for non- Americans. Multiply eGFR by 1.16 for patients. Blood VENOUS BLOOD / Unknown Venipuncture / Unknown 06/12/2021 13:32 EDT 06/12/2021 13:33 EDT Zeina Curiel PA-C CHEMISTRY & BLOOD GAS ORDERAB LES Final Result [facility] [address] [place] [address] * (ABNORMAL) COMPLETE BLOOD COUNT (06/12/2021 13:32 EDT) WBC 1.41(L) 4.00 - 12.40 K/cmm 06/12/2021 14:23 [facility] RBC 3.67(L) 3.86 - 5.04 M/cmm 06/12/2021 14:23 [facility] Hemoglobin 10.4(L) 11.6 - 15.2 gm/dL 06/12/2021 14:23 [facility] HCT 31.7(L) 34.9 - 44.4 % 06/12/2021 14:23 [facility] MCV 86 81 - 98 fl 06/12/2021 14:23 [facility] MCH 28.3 26.7 - 33.3 pg 06/12/2021 14:23 [facility] MCHC 32.8 32.1 - 35.9 gm/dL 06/12/2021 14:23 EDT [facility] RDW-CV 15.9(H) <14.7 % 06/12/2021 14:23 EDT [facility] RDW-SD 49.8 <50.4 fl 06/12/2021 14:23 EDT [facility] PLT 41(L) 141 - 377 K/cmm 06/12/2021 14:23 EDT [facility] MPV 10.2 9.5 - 12.7 fl 06/12/2021 14:23 EDT [facility] Blood VENOUS BLOOD / Unknown Venipuncture / Unknown 06/12/2021 13:32 EDT 06/12/2021 13:33 EDT us Starr Paige MD HEMATOLOGY & PF4 ORDERABLES Final Result Performing Organization Address City/State/[facility] Co de Phone Number [facility] [address] [place] [address] documented in this encounter Visit Diagnoses Diagnosis Pancytopenia (HCC-CMS) Other pancytopenia Portal vein thrombosis Leg swelling Swelling of limb documented in this encounter Care Teams Offset Second Press Operator Relationship Specialty Start Date End Date Emigdio Veronica MD [address] [place] [phone] PCP - General Internal Medicine - Primary Care 05/22/20 02/21/24 documented as of this encounter
--- OUTSIDE RECORDS SUMMARY | 2024-11-22 17:14 | XMS_ITS | Encounter Summary ---
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 Not [...] Office Visit [facility] Ophthalmology - [address] [phone] Gagandeep Rome MD [address] [place] [address], [facility] 5 [place] [phone] 02/11/2025 13:30 EDT Telemedicine [facility] Hematology & Oncology - [address] [phone] Dana Padilla MD [address] [place] [address], [address] [place] [phone] documented as of this encounter Visit Diagnoses Not on filedocumented in this encounter Care Teams Campus Aide Relationship Specialty Start Date End Date Emigdio Veronica MD [address] [place] [phone] PCP - General Internal Medicine - Primary Care 05/22/20 02/21/24 documented as of this encounter
--- OUTSIDE RECORDS SUMMARY | 2024-11-22 17:14 | XMS_ITS | Encounter Summary ---
Author Organization [facility] Address [address] [place] [address] Care Team Providers Care Consultant Name Role Phone Emigdio Veronica MD Primary Care Provider + Encounter Details Date Type Department Care Team (Late st Contact Info) Description 05/28/2021 11:15 EDT Phlebotomy Only 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 Not [...] Visit [facility] Ophthalmology - [address] [phone] Gagandeep Rome MD 111 [facility], Level 5 [place] [address] 02/11/2025 13:30 EDT Telemedicine [facility] [place] Hematology & Oncology - [address] [phone] Dana Padilla MD 111 [facility], Level 2 [place] [address] documented as of this encounter Procedures Procedure Name Priority Date/Time Associated Diagnosis Comments DIFFERENTIAL, AUTOMATED MANUAL Today 05/28/2021 10:28 EDT Thrombocytopenia (HCC-CMS) Pancytopenia (HCC-CMS) COMPLETE BLOOD COUNT AND DIFFERENTIAL STAT 05/28/2021 10:28 EDT Thrombocytopenia (HCC-CMS) Pancytopenia (HCC-CMS) BASIC METABOLIC PANEL (BMP) Routine 05/28/2021 10:28 EDT Leg swelling documented in this encounter Results * (ABNORMAL) DIFFERENTIAL, AUTOMATED MANUAL (05/28/2021 10:28 EDT) % Neutrophils 90.4 % 05/28/2021 11:48 EDT [facility] % Lymphocytes 3.5 % 05/28/2021 11:48 EDT [facility] % Monocytes 6.1 % 05/28/2021 11:48 EDT [facility] Absolute Neutrophils 1.12(L) 2.20 - 8.85 K/cmm 05/28/2021 11:48 [facility] Absolute Lymphocytes 0.04(L) 1.09 - 3.30 K/cmm 05/28/2021 11:48 [facility] Absolute Monocytes 0.08(L) 0.10 - 0.80 K/cmm 05/28/2021 11:48 [facility] Blood VENOUS BLOOD / Unknown Venipuncture / Unknown 05/28/2021 10:28 EDT 05/28/2021 11:02 EDT us Starr Paige MD HEMATOLOGY & PF4 ORDERABLES Final Result [facility] [address] [place] [address] * (ABNORMAL) COMPLETE BLOOD COUNT AND DIFFERENTIAL (05/28/2021 10:28 EDT) WBC 1.24(L) 4.00 - 12.40 K/cmm 05/28/2021 11:18 [facility] RBC 3.71(L) 3.86 - 5.04 M/cmm 05/28/2021 11:18 [facility] Hemoglobin 10.5(L) 11.6 - 15.2 gm/dL 05/28/2021 11:18 [facility] HCT 32.4(L) 34.9 - 44.4 % 05/28/2021 11:18 [facility] MCV 87 81 - 98 fl 05/28/2021 11:18 [facility] MCH 28.3 26.7 - 33.3 pg 05/28/2021 11:18 [facility] MCHC 32.4 32.1 - 35.9 gm/dL 05/28/2021 11:18 [facility] RDW-CV 15.8(H) <14.7 % 05/28/2021 11:18 [facility] RDW-SD 50.1 <50.4 fl 05/28/2021 11:18 [facility] PLT 38(L) 141 - 377 K/cmm 05/28/2021 11:18 [facility] MPV 10.3 9.5 - 12.7 fl 05/28/2021 11:18 [facility] Type of Differential: Manual 05/28/2021 11:18 [facility] Blood VENOUS BLOOD / Unknown Venipuncture / Unknown 05/28/2021 10:28 EDT 05/28/2021 11:02 EDT us Starr Paige MD PACKAGES & DNA PROBE ORDERA BLES Final Result [facility] [address] [place] [address] * (ABNORMAL) BASIC METABOLIC PANEL (BMP) (05/28/2021 10:28 EDT) Sodium 135(L) 136 - 145 mEq/L 05/28/2021 12:05 [facility] Potassium 4.3 3.5 - 5.0 mEq/L 05/28/2021 12:05 [facility] Chloride 98 96 - 110 mEq/L 05/28/2021 12:05 [facility] CO2 Total 27 22 - 32 mEq/L 05/28/2021 12:05 [facility] Glucose 96 70 - 100 mg/dL 05/28/2021 12:05 [facility] Calcium 9.2 8.5 - 10.5 mg/dL 05/28/2021 12:05 [facility] Calculated Calcium 9.2 8.5 - 10.5 mg/dL 05/28/2021 12:05 [facility] BUN 16 10 - 26 mg/dL 05/28/2021 12:05 [facility] Creatinine 1.18(H) 0.52 - 1.04 mg/dL 05/28/2021 12:05 [facility] eGFR 50(L) >60 mL/min/1.7 3m2 05/28/2021 12:05 [facility] Comment:eGFR calculated lobito coppola CKD-EPI equation for non- Americans. Multiply eGFR by 1.16 for patients. Blood VENOUS BLOOD / Unknown Venipuncture / Unknown 05/28/2021 10:28 EDT 05/28/2021 11:28 EDT us Emigdio Veronica MD CHEMISTRY & BLOOD GAS OR DERABLES Final Result [facility] [address] [place] [address] documented in this encounter Visit Diagnoses Diagnosis Leg swelling Swelling of limb Thrombocytopenia (HCC-CMS) Thrombocytopenia, unspecified Pancytopenia (HCC-CMS) Other pancytopenia documented in this encounter Care Teams Consultant Relationship Specialty Start Date End Date Emigdio Veronica MD [address] [place] [phone] PCP - General Internal Medicine - Primary Care 05/22/20 02/21/24 documented as of this encounter
--- OUTSIDE RECORDS SUMMARY | 2024-11-22 17:14 | XMS_ITS | Encounter Summary ---
Author Organization [facility] Address [address] [place] [address] Care Team Providers Care Film Printer Name Role Phone Emigdio Veronica MD Primary Care Provider + Reason for Visit * Reason Onset Date Comments Leg Swelling 06/18/2021 Results 06/18/2021 Medication Management 06/18/2021 Encounter Details Date Type Department Care Team (Late st Contact Info) Description 06/18/2021 Telephone [facility] Adult Primary Care - [place] [address] [place] [address] Emigdio Veronica MD [address] [place] [phone] Leg Swelling; Results; Medication Management Social History Tobacco Use Types [...] 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 No able to keep anything down. Patient has weight gain. Patient short of breath because of weight gain. Patient is going [facility]. Report called to ER Triage. Spoke with Kevin. * Telephone Encounter - Jes Mayorga RN - 06/29/2021 1023 EDT Patient aware of DR Doty recommendation. Patient will restart spironolactone 50 mg today. Patient will have her lab work drawn morning and follow up with Dr Veronica on 07-02-21. The patient indicates understanding of these issues and agrees with the plan. * Telephone Encounter - Emigdio Veronica MD - 06/29/2021 0856 EDT Agree with UC or other office evaluation. Given that she has refused that I would have her restart spirolactone at 50 mg daily. She should continue lasix 20 mg daily. She should get her repeat BMP prior to our visit on . If symptoms worsen she should presentto the ED. * Telephone Encounter - Jes Mayorga RN - 06/29/2021 0834 EDT Patient has swelling from knees down. Legs are hard like Last weight was 228. Red warm to touch. Not able to put on shoes or anything Patient is not currently talking spironolactone. Patient is taking lasix 20 mg daily. Patient had lab work done last week. Patient encouraged to go to urgent care today. Patient declined. Offered appointment , patient declined. Patient has appointment scheduled for with PCP. Recommendations prior to appointment? * Telephone Encounter - Ebony Toscano - 06/29/2021 0830 EDT Pt is calling today to report that her legs are very swollen, says her weight is now up to 228 thisAM, says she was down below 200. She says her legs are swollen to her knees says her muscles & calves are like rocks, very very painful to touch, says they are red & hot, skin is stretched out & shiny. * Telephone Encounter - Karol Hoff RN - 06/23/2021 1055 EDT Updated patient about the recommendations from Dr Veronica below. The patient indicates understanding of these issues and agrees with the plan. No barriers. * Telephone Encounter - Emigdio Veronica MD - 06/23/2021 1035 EDT A 14 pound weight gain in 48 hours seems highly unlikely. I would expect flash pulmonary edema and symptomatic SOB with such a rapid fluid shift if real. She has been travelling and these measurements may be coming from changes in how she is measuring her weight. My recommendations are to stick with the lasix 20 mg daily for now and continue to track daily weights. Rapidly uptitrating her diuretics has consistently lead to AKIs in the past. Should her SOB worsen pursue immediate ED evaluation. Elevation and compression of her lower extremities should also be consistently performed. * Telephone Encounter - Karol Hoff RN - 06/23/2021 1018 EDT Spoke to patient who reports she restarted the furosemide 20 mg daily on 06/20. Weights: 06/20 206 lbs 06/21 207 lbs 06/23 220.6 lbs She denies eating anything especially salty, but is on vacation in [facility]. She does report someincrease in SOB from baseline, but reports nasal congestion needing inhalers more for a loose wheeze. Denies SOB worsening when laying on her back. Was exposed to grand kids with colds. Ankles are very swollen. Recommendation? * Telephone Encounter - Ebony Toscano - 06/23/2021 1008 EDT Pt calling today, says she was 207 two days ago, today is 220, says her ankles are very swollen. She ?what the next step is? * Telephone Encounter - Karol Schultz RN - 06/19/2021 1047 EDT Discussed recommendations with patient, she will restart ONLY the lasix 20 mg tomorrow and continueto monitor her weight. Aware to call with weight changes. * Telephone Encounter - Emigdio Veronica MD - 06/18/2021 1645 EDT Her creatinine is still above baseline, but improving significantly. I would hold off on restartingdiuretics for one more day. I do think it is likely safe to restart just lasix at 20 mg daily starting on Tuesday. She should continue to track her weights daily. * Telephone Encounter - Karol Copeland - 06/18/2021 1454 EDT Pt states she was instructed to call after getting labs done today to see if she should continue medication for leg swelling. Pt states she is still having leg swelling every day. documented in this encounter Plan of Treatment Upcoming Encounters Date Type Department Care Team (Late st Contact Info) Description 01/04/2025 13:00 EST Office Visit [facility] Ophthalmology - [address] [phone] Gagandeep Rome MD [address] [place] [address] [address] [place] [phone] 02/11/2025 13:30 EDT Telemedicine [facility] Hematology & Oncology - [address] [phone] Dana Padilla MD 111 [facility] [address] [place] [phone] documented as of this encounter Visit Diagnoses Not on filedocumented in this encounter Care Teams Film Printer Relationship Specialty Start Date End Date Emigdio Veronica MD [address] [place] [phone] PCP - General Internal Medicine - Primary Care 05/22/20 02/21/24 documented as of this encounter
--- OUTSIDE RECORDS SUMMARY | 2024-11-22 17:14 | XMS_ITS | Encounter Summary ---
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 [...] encounter Miscellaneous Notes * Telephone Encounter - Doug Rutledgena - 05/28/2021 1551 EDT Spoke with patient to advise of appt 07/09 @ 8am; confirmed documented in this encounter Plan of Treatment Upcoming Encounters Date Type Department Care Team (Late st Contact Info) Description 01/04/2025 13:00 EST Office Visit [facility] Ophthalmology - [address] [phone] Gagandeep Rome MD [address] [place] [address], [facility] [address] [place] [phone] 02/11/2025 13:30 EDT Telemedicine [facility] Hematology & Oncology - [address] [phone] Dana Padilla MD [address] [place] [address], [facility] [address] [place] [phone] documented as of this encounter Visit Diagnoses Not on filedocumented in this encounter Care Teams Consulting Technical Director Relationship Specialty Start Date End Date Emigdio Veronica MD [address] [place] [phone] PCP - General Internal Medicine - Primary Care 05/22/20 02/21/24 documented as of this encounter
--- OUTSIDE RECORDS SUMMARY | 2024-11-22 17:15 | XMS_ITS | Encounter Summary ---
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 No / Unsure 05/06/2021 14:04 EDT documented as of this encounter Functional [...] Office Visit [facility] Ophthalmology - [address] [phone] Gagandeep Rome MD [address] [place] [address], [facility] [address] [place] [phone] 02/11/2025 13:30 EDT Telemedicine [facility] Hematology & Oncology - [address] [phone] Dana Padilla MD [address] [place] [address], [address] [place] [phone] documented as of this encounter Visit Diagnoses Not on filedocumented in this encounter Care Teams Applied Behavior Specialist Relationship Specialty Start Date End Date Emigdio Veronica MD [address] [place] [phone] PCP - General Internal Medicine - Primary Care 05/22/20 02/21/24 documented as of this encounter
--- OUTSIDE RECORDS SUMMARY | 2024-11-22 17:15 | XMS_ITS | Encounter Summary ---
Author Organization [facility] Address [address] [place] [address] Care Team Providers Care Channel Marketing Specialist Name Role Phone Emigdio Veronica MD Primary Care Provider + Reason for Visit * Vascular Lab (Routine) - Closed Specialty Diagnoses / Procedures Referred By Serene huitron Referred To Contact Diagnoses Portal vein thrombosis Procedures US LOWER ARTERIAL DUPLEX Starr Paige MD Phone: tel: fax: Referral ID Status Reason Start Date Expiration Date Visits Re quested Visits Authorized [id number] Closed 05/06/2021 1 1 Encounter Details Date Type Department Care Team (Latest Contact Info) Description 05/22/2021 13:30 EDT Ancillary Procedure Vascular Surgery and Endovascular Therapy - [facility] [address] [place], [place] [phone] Portal vein thrombosis Social History Tobacco Use [...] 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 No / Unsure 05/08/2021 13:26 EDT documented as of this encounter Functional [...] [facility] Ophthalmology [address] [phone] Gagandeep Rome MD [address] [place] [address], [facility] [address] [place] [phone] 02/11/2025 13:30 EDT Telemedicine [facility] Hematology & Oncology [address] [phone] Dana Padilla MD [address] [place] [address], [facility] [address] [place] [phone] documented as of this encounter Procedures Procedure Name Priority Date/Time Associated Diagnosis Comments US LOWER ARTERIAL DUPLEX BILATERAL WITH DEWAYNE Routine 05/22/2021 14:01 EDT Portal vein thrombosis documented in this encounter Results * US LOWER ARTERIAL DUPLEX BILATERAL WITH DEWAYNE (05/22/2021 14:01 EDT) Left REEL BLADE BENDER FURNACE TENDER dist sys PSV 75 cm/s MERGE CARDIO Right REEL BLADE BENDER FURNACE TENDER dist sys PSV 78 cm/s MERGE CARDIO Right arm BP 117 mmHg MERGE CARDIO Left arm BP 121 mmHg MERGE CARDIO RIGHT DEWAYNE DIGIT 103 mmHg MERGE CARDIO Right TBI 0.85 MERGE CARDIO Right posterior tibial 146 mmHg MERGE CARDIO RTDOPED 146 mmHg MERGE CARDIO Right DEWAYNE 1.21 MERGE CARDIO LEFT DEWAYNE DIGIT 118 mmHg MERGE CARDIO Left TBI 0.98 MERGE CARDIO Left posterior tibial 143 mmHg MERGE CARDIO LTDOPED 44 mmHg MERGE CARDIO Left DEWAYNE 1.18 MERGE CARDIO Anatomical Region Laterality Modality Vascular Ultrasound Narrative 05/26/2021 10:01 EDT Segmental pressures and waveforms were normal at rest bilaterally. Right Lower Digits 1st digit: Normal Left Lower Digits 1st digit: Normal Right Lower Physiologic Pulse Volume Recording Right ankle: normal Doppler Waveform Right posterior tibial: triphasic Right dorsalis pedis: triphasic Left Lower Physiologic Pulse Volume Recording Left ankle: normal Arterial HPI and Indications Atherosclerosis with claudation. Arterial Past Medical History Former tobacco use. COPD us Starr Paige MD [facility] VASCULAR ORDERABLES Final Result documented in this encounter Visit Diagnoses Diagnosis Portal vein thrombosis documented in this encounter Care Teams Channel Marketing Specialist Relationship Specialty Start Date End Date Emigdio Veronica MD [address] [place] [phone] PCP - General Internal Medicine - Primary Care 05/22/20 02/21/24 documented as of this encounter
--- OUTSIDE RECORDS SUMMARY | 2024-11-22 17:15 | XMS_ITS | Encounter Summary ---
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 * Telephone Encounter - Karol Hoff RN - 06/09/2021 1453 EDT Reminder call to patient to remind her to get labs done, she plans to walk in tomorrow vs . * Telephone Encounter - Heike Mcleod RN - 06/04/2021 1027 EDT Call to pt She is leaving now and will be out of town until Tuesday Will have to do blood work upon return The patient indicates understanding of these issues and agrees with the plan. * Telephone Encounter - Zeina Curiel PA-C - 06/04/2021 0954 EDT BMP order signed. Patient does not need to be fasting. * Telephone Encounter - Heike Mcleod RN - 06/04/2021 0952 EDT See note below from 05/[address] fernandez Pended BMP for [place] * Telephone Encounter - Noemi Hall - 06/03/2021 1655 EDT Patient states she was to have labs repeated this week per Dr Fernandez but no labs were ordered by him for this week. Patient inquiring what to do next? Patient will be out of town until tuesday * Telephone Encounter - Karol Hoff RN - 05/27/2021 1144 EDT Updated patinet about the recommendations from Dr Fernandez below. The patient indicates understanding of these issues and agrees with the plan. No barriers. * Telephone Encounter - Emigdio Fernandez MD - 05/27/2021 1031 EDT We will need to be extremely careful. I would still go up to lasix 40 mg daily with a plan to get labs this week and next week. She should weight herself daily and return to lasix 20 mg daily once her weights drop to the 192-195 range. * Telephone Encounter - Karol Hoff RN - 05/27/2021 1026 EDT Spoke to patient who reports a 6 lb weight loss from 05/25 to 05/26. Again she does weigh herself in the evening,but the same time every day. She is down to 202 lbs, which is still up several pounds fromwhen she saw Dr Fernandez. Breathing is slightly better last night than the night before, but still needing inhalers and having continued wheezing. Is the recommendation to still increase furosemide to 40 mg daily? Patient is aware to get labs tomorrow. * Telephone Encounter - Emigdio Fernandez MD - 05/26/2021 1707 EDT Her labs reflect steady recovery of her renal function with reduction in her diuretics. I am hesitant to increase her diuretics aggressively. But we could do a minor bump in lasix from 20 mg to 40 mgdaily with a plan to get a BMP on and a repeat BMP next week. She can also be offered an appointment this with Zeina if desired. * Telephone Encounter - Karol Hoff RN - 05/26/2021 1447 EDT Spoke to patient who reports she checks her weight at night and has had an 8 lb weight gain over the last 3 nights and a 12 pound weight gain since she saw Dr Fernandez on 05/15. Sprinolactone and furosemide had been decreased on 04/[address] Fernandez. She has transportation issues and isn't able to get transportation for this afternoon or tomorrow. Increased BLE swelling and mild increase in SOB that does worsen with laying down. Already on oxygen over night baseline. B/P is 98/59 pulse 86. She can get labs on 05/28 when she is at the main campus for her hematology visit (she goes in even though it says video). She could been seen as long as it doesn't conflict with hematology's appointment, but there are currently no openings. She is aware to call office back if she can get transportation for tomorrow. Recommendation for now? * Telephone Encounter - Noemi Hall - 05/26/2021 1352 EDT Reason for Call: Medication Management Summary/Symptoms: patient states Dr Fernandez cut lasix and spironolactone because she was doing wellbut in the last couple of days her calves and ankles have swelled up. And has gained 12 lbs since Tuesday Thinks it is also interfering with breathing. States it has been harder to breath in the last few days Onset and Duration: since tuesday Does the patient have a computer, laptop or smart phone with high speed & video capability? N/A If so, would they be interested in doing a video visit via Zoom? N/A Appointment Offered? No Noemi Hall 05/26/2021 13:52 documented in this encounter Plan of Treatment Upcoming Encounters Date Type Department Care Team (Late st Contact Info) Description 01/04/2025 13:00 EST Office Visit [facility] Ophthalmology - [address] [phone] Gagandeep Rome MD 111 [facility], [address] [place] [address] 02/11/2025 13:30 EDT Telemedicine [facility] Hematology & Oncology - [address] [address] Dana Padilla MD 111 [facility], [address] [place] [address] documented as of this encounter Results * (ABNORMAL) BASIC METABOLIC PANEL (BMP) (06/12/2021 13:32 EDT) Sodium 137 136 - 145 mEq/L 06/12/2021 14:33 EDT [facility] Potassium 4.8 3.5 - 5.0 mEq/L 06/12/2021 14:33 [facility] Chloride 99 96 - 110 mEq/L 06/12/2021 14:33 [facility] CO2 Total 27 22 - 32 mEq/L 06/12/2021 14:33 [facility] Glucose 109(H) 70 - 100 mg/dL 06/12/2021 14:33 [facility] Calcium 9.3 8.5 - 10.5 mg/dL 06/12/2021 14:33 [facility] Calculated Calcium 9.5 8.5 - 10.5 mg/dL 06/12/2021 14:33 [facility] BUN 19 10 - 26 mg/dL 06/12/2021 14:33 [facility] Creatinine 1.29(H) 0.52 - 1.04 mg/dL 06/12/2021 14:33 [facility] eGFR 45(L) >60 mL/min/1.7 3m2 06/12/2021 14:33 [facility] Comment:eGFR calculated lobito coppola CKD-EPI equation for non- Americans. Multiply eGFR by 1.16 for patients. Blood VENOUS BLOOD / Unknown Venipuncture / Unknown 06/12/2021 13:32 EDT 06/12/2021 13:33 EDT us Zeina Curiel PA-C CHEMISTRY & BLOOD GAS ORDERAB LES Final Result [facility] [address] [place] [address] * (ABNORMAL) BASIC METABOLIC PANEL (BMP) (05/28/2021 10:28 EDT) Sodium 135(L) 136 - 145 mEq/L 05/28/2021 12:05 [facility] Potassium 4.3 3.5 - 5.0 mEq/L 05/28/2021 12:05 [facility] Chloride 98 96 - 110 mEq/L 05/28/2021 12:05 [facility] CO2 Total 27 22 - 32 mEq/L 05/28/2021 12:05 [facility] Glucose 96 70 - 100 mg/dL 05/28/2021 12:05 [facility] Calcium 9.2 8.5 - 10.5 mg/dL 05/28/2021 12:05 [facility] Calculated Calcium 9.2 8.5 - 10.5 mg/dL 05/28/2021 12:05 [facility] BUN 16 10 - 26 mg/dL 05/28/2021 12:05 [facility] Creatinine 1.18(H) 0.52 - 1.04 mg/dL 05/28/2021 12:05 [facility] eGFR 50(L) >60 mL/min/1.7 3m2 05/28/2021 12:05 EDT [facility] Comment:eGFR calculated lobito coppola CKD-EPI equation for non- Americans. Multiply eGFR by 1.16 for patients. Blood VENOUS BLOOD / Unknown Venipuncture / Unknown 05/28/2021 10:28 EDT 05/28/2021 11:28 EDT Emigdio Fernandez MD CHEMISTRY & BLOOD GAS OR DERABLES Final Result [facility] [address] [place] [address] documented in this encounter Visit Diagnoses Diagnosis Leg swelling- Primary Swelling of limb documented in this encounter Additional Health Concerns Infection Onset Date Last Indicated Resolved Time R/O COVID-19 06/12/2021 06/12/2021 06/12/2021 23:4 3 EDT documented as of this encounter Care Teams [place] Supervisor Relationship Specialty Start Date End Date Emigdio Fernandez MD [address] [place] [phone] PCP - General Internal Medicine - Primary Care 05/22/20 02/21/24 documented as of this encounter
--- OUTSIDE RECORDS SUMMARY | 2024-11-22 17:15 | XMS_ITS | Encounter Summary ---
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 Not on [...] Office Visit [facility] Ophthalmology - [address] [phone] Gagandeep Rome MD [address] [place] [address], [facility] [address] [place] [phone] 02/11/2025 13:30 EDT Telemedicine [facility] Hematology & Oncology - [address] [phone] Dana Padilla MD [address] [place] [address], [address] [place] [phone] documented as of this encounter Visit Diagnoses Not on filedocumented in this encounter Care Teams Bus Mechanic Relationship Specialty Start Date End Date Emigdio Veronica MD [address] [place] [phone] PCP - General Internal Medicine - Primary Care 05/22/20 02/21/24 documented as of this encounter
--- OUTSIDE RECORDS SUMMARY | 2024-11-22 17:15 | XMS_ITS | Encounter Summary ---
Author Organization [facility] Address [address] [place] [address] Care Team Providers Care Frickertron Checker Name Role Phone Emigdio Veronica MD Primary Care Provider + Reason for Visit * Reason Onset Date Comments Follow-up 05/11/2021 Encounter Details Date Type Department Care Team (Late st Contact Info) Description 05/11/[address] 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 60 capsule 1 05/11/2021 documented in this encounter Miscellaneous Notes * Telephone Encounter - Emigdio Veronica MD - 05/11/2021 1717 EDT Omeprazole BID ordered. Agree with OV this week. I have no additional recommendations on blood work at this time. * Telephone Encounter - Cris Copeland - 05/11/2021 1642 EDT Pt's insurance wont cover the Omeprazole. Usually prefers the 40mg. Pharmacy states we can try a script written for 40mg 1 cap 2 times per day and see if it will be covered. If it isn't we will need to do a PA. * Telephone Encounter - Jes Mayorga RN - 05/11/2021 1450 EDT Patient was in the ER on Tuesday. Patient was in pain. Came into the house and then blacked out. Blood pressure dropped. And was in bad pain where the blood clot is. With in a few weeks there is an ulcer that is putting pressure on the blood clot. Patient was on 30 mg of omeprazole. This was increased to 40 mg twice a day. Patient was given some mylanta. Said need to talk with dr Veronica for pain medications. Can't keep anything down.patient is both vomiting and having diarrhea. Taking mylanta is able to keep down for 20 minutes. Taking the mylanta. -4 times a day. Started with increase in omeprazole on Tuesday. Patient had diarrhea before starting the increase in the omeprazole. Patient has tremors in legs and hands. Patient has appointment with DR Veronica on Tuesday. Patient hasnt slept in 2 nights. Had the chills last night. Doesn't feel feverish today. Taking zofran twice a day. This morning couldn't keep any of medications down. Taking hydromorphone 2 tablets a day. Patient is weak. Patient has referral to vascular for her legs. Concern is for blood clots in legs. Patient states she know she is dehydrated. Taking sips of water. Patient states she takes the zofran before her pills in the morning. Even then she vomits up her pills/ Patient had afshan graft for stomach. Once patient swallows something it cant come back up. Moved up appointment to . Any other recommendations/ lab work prior. * Telephone Encounter - Noemi Hall - 05/11/2021 0930 EDT Reason for Call: Follow-up Summary/Symptoms: patient was in the ED this weekend. She was told to follow up with PCP. Hasn't slept for two day because of pain. Pain is in abdomin near blood clots. zofran not taking care of the nausea at all. Patient states ED and orderlies teacher wanted her to talk to PCP about increasing pain medication. Onset and Duration: Tuesday afternoon Does the patient have a computer, laptop or smart phone with high speed & video capability? N/A If so, would they be interested in doing a video visit via Zoom? N/A Appointment Offered? No Noemi Hall 05/11/2021 9:31 documented in this encounter Plan of Treatment Upcoming Encounters Date Type Department Care Team (Late st Contact Info) Description 01/04/2025 13:00 EST Office Visit [facility] [place] [address] Gagandeep Rome MD 111 [facility], [address] [place] [phone] 02/11/2025 13:30 EDT Telemedicine [facility] Cancer Center Hematology & Oncology - [address] [phone] Dana Padilla MD 111 [facility] Level [address] [place] [phone] documented as of this encounter Visit Diagnoses Not on filedocumented in this encounter Discontinued Medications Medication Sig Discontinue Reason Start Date End Da te omeprazole (PRILOSEC) 20 mg capsule Take 2 Capsules by mouth 2 times daily for 30 days. Alternate therapy 05/08/2021 05/11/2021 documented as of this encounter Care Teams Frickertron Checker Relationship Specialty Start Date End Date Emigdio Veronica MD [address] [place] [phone] PCP - General Internal Medicine - Primary Care 05/22/20 02/21/24 documented as of this encounter
--- OUTSIDE RECORDS SUMMARY | 2024-11-22 17:15 | XMS_ITS | Encounter Summary ---
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 spironolactone (ALDACTONE) 50 mg tablet [Pharmacy Med Name: SPIRONOLACTONE 50 MG TABLET] 30 Tablet 1 Sig: TAKE 1 TABLET BY MOUTH EVERY DAY [facility]/pharmacy #[id number] - [address] Confirmed Pharmacy? [facility] Request Patient out of medication? Unknown Last Refill Date: 04.16.21 Refills left? (explain exceptions requiring early refill) No Recent Visits Date Type Provider Dept 04/29/21 Office Visit Emigdio Veronica MD [place] [facility] 04/16/21 Office Visit Emigdio Veronica MD [place] [facility] 04/10/21 Office Visit Emigdio Veronica MD [place] [facility] 03/06/21 Office Visit Emigdio Veronica MD [place] [facility] 01/27/21 Office Visit Dom Mackay MD [place] [facility] 11/20/20 Office Visit Emigdio Veronica MD [place] [facility] 10/15/20 Office Visit Emigdio Veronica MD [place] [facility] 10/10/20 Office Visit Scottie Campuzano PA-C [place] [facility] 09/05/20 Office Visit Emigdio Veronica MD [place] [facility] 08/22/20 Office Visit Emigdio Veronica MD [place] [facility] Showing recent visits within past 540 days with a meds authorizing provider and meeting all other requirements Future Appointments Date Type Provider Dept 05/14/21 Appointment Emigdio Veronica MD [facility] Showing future appointments within next 150 days with a meds authorizing provider and meeting all other requirements Future appointment: Already Scheduled Noemi Hall 05/13/2021 14:04 documented in this encounter Plan of Treatment Upcoming Encounters Date Type Department Care Team (Late st Contact Info) Description 01/04/2025 13:00 EST Office Visit [facility] Ophthalmology - [address] [phone] Gagandeep Rome MD [address] [place] [address], [facility] [address] [place] [phone] 02/11/2025 13:30 EDT Telemedicine [facility] Hematology & Oncology [address] [phone] Dana Padilla MD [address] [place] [address], [facility] [address] [place] [phone] documented as of this encounter Visit Diagnoses Not on filedocumented in this encounter Care Teams Spinal Surgeon Relationship Specialty Start Date End Date Emigdio Veronica MD [address] [place] [phone] PCP - General Internal Medicine - Primary Care 05/22/20 02/21/24 documented as of this encounter
--- OUTSIDE RECORDS SUMMARY | 2024-11-22 17:15 | XMS_ITS | Encounter Summary ---
Author Organization [facility] Address [address] [place] [address] Care Team Providers Care Circus Train Supervisor Name Role Phone Emigdio Veronica MD Primary Care Provider + Reason for Visit * Reason Comments Hospital Discharge Follow Up abd pain , portal vein thrombosis Encounter Details Date Type Department Care Team (Late st Contact Info) Description 04/29/2021 14:30 EDT Office Visit [facility] Adult Primary Care - [place] [address] [place] [address] Emigdio Veronica MD [address] [place] [phone] Portal vein thrombosis (Primary Dx); Chronic pain syndrome Social History Tobacco Use [...] Job Start Date Job End Date 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 No / Unsure 04/13/2021 13:03 EDT documented as of this encounter Last Filed Vital Signs Vital Sign Reading Time Taken Comments Blood Pressure 100/78 04/29/2021 1412 EDT Pulse 80 04/29/2021 1412 EDT r Temperature 36.5 ??C (97.7 ??F) 04/29/2021 1412 EDT Respiratory Rate 16 04/29/2021 1412 EDT Oxygen Saturation - - Inhaled Oxygen Concentration - - Weight 89.5 kg (197 lb 6.4 oz) 04/29/2021 1412 E DT Height - - Body Mass Index 34.12 04/25/2021 0600 EDT documented in this encounter Functional Status * Are you deaf or do you have serious difficulty hearing? Answer Date of Assessment Author No 04/23/2021 13:50 EDT Lynn Monroe RN * Are you blind or do you have serious difficulty seeing, even when wearing glasses? Answer Date of Assessment Author No 04/23/2021 13:50 EDT Lynn Monroe RN * Do you have serious difficulty [...] Lynn Hall RN documented in this encounter Ordered Prescriptions Prescription Sig Dispense Quantity Refills Last Filled Start Date End Date HYDROmorphone (DILAUDID) 2 mg tablet Take 1 Tab by mouth every 12 hours as needed for 14 days for Pain, THEN 1 Tab daily as needed for up to 14 days for Pain. Daily Max: 4 mg. 42 Tab 04/29/2021 05/16/2021 documented in this encounter Progress Notes * Emigdio Veronica MD - 04/29/2021 1430 EDT Tara Yun is a 60 y.o. female with a PMHx of chronic back pain, NAFLD, pancytopenia and hypothyroidism. PRIMARY CARE PROVIDER: Emigdio Veronica CHIEF COMPLAINT: Chief Complaint Patient presents with ??? Hospital Discharge Follow Up abd pain , portal vein thrombosis SUBJECTIVE: Tara Yun presents today for a posthospitalization visit. She was recently admitted to the internal medicine service from 04/22 to 04/25/2021 for symptoms of abdominal pain determined to be secondary to worsening portal vein thrombosis. She originally presentedto the ER on the evening of 04/22 with increased abdominal pain and received a CT abdomen scan that showed evidence of interval increase of her portal vein thrombosis burden from her last study in November 2019. Given her history of pancytopenia she was admitted to the internal medicine service and hematology was consulted. They recommended enoxaparin 40 mg daily moving forward as well as follow-up with her side stitcher Dr. Paige. Her pain was treated with oral Dilaudid and she was discharged to home with instructions to continue conservative treatments. Since returning home she reports that her abdominal pain is continued to worsen. She notes that is an 8 out of 10 currently and is primarily isolated to her right upper quadrant. She confirms intermittent nausea as well. Ms. Fountain has a longstanding history of chronic pain for which she has been onchronic opiates in the past and has a reported history of pain seeking behavior. Due to her pancytopenia she is instructed to avoid acetaminophen and due to her kidney disease she has been instructedto avoid NSAIDs. She has exhibited poor tolerance to other forms of pain relievers including Robaxin, gabapentin, Lyrica, tramadol and morphine. She is interested in continuing her Dilaudid for a short period as she acclimates to her lovenox. We discussed that her pain is complex and multifactorial as well as chronic. Due to these features airamid discuss that opiate therapy has a very poor likelihood for providing her long-term relief and extremely high likelihood for adverse outcomes including dependence, pain sensitization and adverse effects such as constipation, increased nausea and increased risk for falls and accidents which couldbe dangerous given her low platelet count and current use of blood thinners. Feels expresses understanding of these risks, but still inquires about a short course of opiate therapy to get her over the hump. She is yet to hear from Dr. Paige's office on outpatient follow-up in the setting of her recent start of low molecular weight heparin. ROS as above Medications and history reviewed. Current Outpatient Medications Medication ??? albuterol (ACCUNEB) 2.5 mg /3 mL (0.083 %) nebulizer solution ??? albuterol 90 mcg/actuation inhaler ??? albuterol 90 mcg/actuation inhaler ??? enoxaparin (LOVENOX) 40 mg/0.4 mL injection ??? furosemide (LASIX) 20 mg tablet ??? HYDROmorphone (DILAUDID) 2 mg tablet ??? levothyroxine (SYNTHROID) 25 mcg tablet ??? magnesium oxide (MAG-OX) 400 mg (241.3 mg magnesium) tablet ??? methocarbamoL (ROBAXIN) 750 mg tablet ??? omeprazole (PRILOSEC) 20 mg capsule ??? ondansetron (ZOFRAN) 4 mg tablet ??? OXYGEN-AIR DELIVERY SYSTEMS MISC ??? sertraline (ZOLOFT) 50 mg tablet ??? spironolactone (ALDACTONE) 50 mg tablet ??? SYMBICORT 160-4.5 mcg/actuation HFA aerosol inhaler inhaler ??? traZODone (DESYREL) 100 mg tablet No current facility-administered medications for this visit. Facility-Administered Medications Ordered in Other Visits Medication Route Frequency ??? albuterol (ACCUNEB) 2.5 mg /3 mL (0.083 %) nebulizer solution OBJECTIVE: BP 100/78 (BP Cuff Location: Right arm, BP Patient Position: Sitting, BP Cuff Sizes: Adult, regular) Pulse 80 Comment: r Temp 36.5 ??C (97.7 ??F) (Temporal) Resp 16 Wt 89.5 kg (197 lb 6.4 oz) BMI 34.12 kg/m?? Gen: Fatigued appearing middle aged female, NAD HEENT: EOMI, PERRL, oropharynx moist, conjunctiva pink, no scleral injection/ icterus CV: RRR, no murmurs, rubs or gallops Pulm: CTAB, good air movement, no wheezes, rales, or rhonchi Abd: +BS, soft, diffusely tender to light palpation, ND, no hepatosplenomegaly Extrem: no edema, warm and well perfused Skin: No rashes or erythema, intact Neuro: A&Ox3 Recent Labs/Imaging: ASSESSMENT and PLAN: Tara was seen today for hospital discharge follow up. Diagnoses and all orders for this visit: Portal vein thrombosis: Recently admitted to the internal medicine service for interval worsening on imaging. Hematology consulted who advised initiation of daily enoxaparin. -Continue enoxaparin at 40 mg daily -Advised close follow-up with her outpatient side stitcher Chronic pain syndrome: Pain source is likely multifactorial the least partly related to her worsening portal vein thrombosis burden. Due to history of pancytopenia she has been unable to take acetaminophen and due to renal insufficiency she is unable to take NSAIDs. She is exhibited poor tolerance to other forms of the less potent opiates such as morphine and tramadol and has exhibited poor tolerance of gabapentin, Lyrica and methocarbamol. Discussed the risks and benefits of short course of hydromorphone which the patient requested be continued today from her recent hospitalization. - POCT DRUG SCREEN, URINE -BP MS check appropriate -Opioid consent and controlled substance agreement obtained today - We will prescribe a 1 month supply of HYDROmorphone (DILAUDID) 2 mg tablet; Take 1 Tab by mouth every 12 hours as needed for 14 days for Pain, THEN 1 Tab daily as needed for up to 14 days for Pain.Daily Max: 4 mg. -We will follow-up in 1 month. Should abdominal pain burden remain significant and patient continueto inquire about continuing her opioid therapy will pursue comprehensive pain clinic referral to explore other options for pain control. Health Care Maintenance Health Maintenance Topic Date [...] Shingles Immunization (2 of 2) 10/29/2019 ??? Social Determinants Of Health (SDOH) 05/22/2021 ??? Behavioral Health Screen 02/11/2022 ??? Pneumococcal Immunization (2 of 2) 2025 ??? Tetanus (Adult) Immunization 03/17/2029 ??? HIV Screening Completed ??? Hepatitis C Screen Completed ??? Influenza Immunization (Adult) Completed ??? Pertussis (Adult) Immunization Discontinued F/u: 1 month Some of this note was transcribed with RV ID dictating software. While it was proofread, it may still contain unnoticed grammatical or word errors due to incorrect transcribing. Emigdio Veronica MD 04/30/2021 17:00 * Ashley Weems - 04/29/2021 1430 EDT poct urine drug screen performed today I was supervised by dr. Veronica who was present and immediately available in the office suite. Ashley Weems 04/29/2021 15:12 documented in this encounter Plan of Treatment Upcoming Encounters Date Type Department Care Team (Late st Contact Info) Description 01/04/2025 13:00 EST Office Visit [facility] Ophthalmology - [address] [phone] Gagandeep Rome MD [address] [facility], [address] [place] [phone] 02/11/2025 13:30 EDT Telemedicine [facility] Hematology & Oncology [address] [address] Dana Padilla MD [address] [facility], [address] [place] [phone] documented as of this encounter Procedures Procedure Name Priority Date/Time Associated Diagnosis Comments POCT DRUG SCREEN, URINE Routine 04/29/2021 Chronic pain syndrome documented in this encounter Results * (ABNORMAL) POCT DRUG SCREEN, URINE (04/29/2021) Temperature, POC 98 ??F 90 - 100 ??F [facility] POINT OF CARE Creatinine, POC 200 mg/dL >20 mg/dL mg/dl [facility] POINT [facility] CARE Specific Webster, POC 1.025 1.005 - 1.025 [facility] pH, POC 7.0 4.0 - 9.0 [facility] THC, POC Negative . [facility] T [facility] Cocaine, POC Negative . [facility] P OINT OF CARE Opiates 300, POC Preliminary positive, Result should be confirmed if clinically indicated(A) . [facility] C[facility] Amphetamine, POC Negative . [facility] Methamphetami ne, POC Negative . [facility] Barbiturates, POC Negative . [facility] Benzodiazapen e, POC Negative . [facility] POINT OF CARE MDMA, POC Negative . [facility] POIN T OF CARE Methadone, POC Negative . [facility] POINT OF CARE Oxycodone, POC Negative . [facility] POINT OF CARE PCP, POC Negative . [facility] POIN T OF CARE Buprenorphine , POC Negative . [facility] POINT OF CARE Urine URINE / Unknown 04/29/2021 Emigdio Veronica MD POINT OF CARE TEST ORDER YANN Final Result [facility] POINT OF CARE documented in this encounter Visit Diagnoses Diagnosis Portal vein thrombosis- Primary Chronic pain syndrome documented in this encounter Discontinued Medications Medication Sig Discontinue Reason Start Date End Da te HYDROmorphone (DILAUDID) 2 mg tablet Take 1 Tab by mouth every 12 hours as needed for Pain. Daily Max: 4 mg 04/27/2021 04/29/2021 documented as of this encounter Care Teams Circus Train Supervisor Relationship Specialty Start Date End Date Emigdio Veronica MD [address] [place] [phone] PCP - General Internal Medicine - Primary Care 05/22/20 02/21/24 documented as of this encounter
--- OUTSIDE RECORDS SUMMARY | 2024-11-22 17:15 | XMS_ITS | Encounter Summary ---
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 Recommended that patient reach out to 's office to see if medication can be given. Patient to call with any other questions or concerns. * Telephone Encounter - Zora Page - 05/08/2021 0937 EDT Patient calling, states Dr. Paige was going to reach out to pcp to discuss pain meds and possible changes. Patient states pcp has not heard from Dr. Paige yet and she is concerned with how muchpain she is experiencing and going into the weekend. Yard Assistant mentioned that note from pcp said she may have misheard as he states Dr. Paige's note indicated a follow up with pcp to discuss meds. Patient states Dr. Paige told her directly that she would be reaching out to pcp. Please call to discuss documented in this encounter Plan of Treatment Upcoming Encounters Date Type Department Care Team (Late st Contact Info) Description 01/04/2025 13:00 EST Office Visit [facility] Ophthalmology - [address] [phone] Gagandeep Rome MD [address] [place] [address], [address] [place] [phone] 02/11/2025 13:30 EDT Telemedicine [facility] Hematology & Oncology - [address] [phone] Dana Padilla MD [address] [facility], [address] [place] [phone] documented as of this encounter Visit Diagnoses Not on filedocumented in this encounter Care Teams Program Therapist Relationship Specialty Start Date End Date Emigdio Veronica MD [address] [place] [phone] PCP - General Internal Medicine - Primary Care 05/22/20 02/21/24 documented as of this encounter
--- OUTSIDE RECORDS SUMMARY | 2024-11-22 17:15 | XMS_ITS | Encounter Summary ---
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 No / Unsure 05/08/2021 13:26 EDT documented as of this encounter Last Filed Vital Signs Vital Sign Reading Time Taken Comments Blood Pressure 102/60 05/14/2021 1343 EDT Pulse 80 05/14/2021 1343 EDT r Temperature 36.5 ??C (97.7 ??F) 05/14/2021 1343 EDT Respiratory Rate 16 05/14/2021 1343 EDT Oxygen Saturation - - Inhaled Oxygen Concentration - - Weight 88.7 kg (195 lb 9.6 oz) 05/14/2021 1343 E DT Height - - Body Mass Index 33.57 05/08/2021 1324 EDT documented in this encounter Functional Status [...] Daily Max: 4 mg 56 Tablet 05/27/2021 06/16/2021 HYDROmorphone (DILAUDID) 2 mg tablet Take 1 Tablet by mouth every 12 hours as needed for Pain. Daily Max: 4 mg 14 Tablet 05/14/2021 05/16/2021 documented in this encounter Progress Notes * Emigdio Veronica MD - 05/14/2021 1345 EDT Tara Yun is a 60 y.o. female with a PMHx of chronic pain syndrome PRIMARY CARE PROVIDER: Emigdio Veronica CHIEF COMPLAINT: Chief Complaint Patient presents with ??? Post-ED Follow Up SUBJECTIVE: Tara Yun presents today for an acute visit for posthospitalization follow-up and chronic pain follow-up. She was recently seen in the [facility] ER on 05/08/2021 following a fall at home. On presentation she noted severe abdominal pain and received a repeat CT abdominal scan. Scan was significant for evidenceof a duodenal ulcer without rupture, cirrhotic configuration of her liver with the stigmata of portal hypertension as well as unchanged thrombus burden of the main portal vein and splenic vein. A CT scan of her head was also unremarkable in the setting of her fall. She was discharged with a plan tostart omeprazole twice daily for treatment of her ulcer. Filiberto states her recent fall was related to her abdominal pain stating that she doubled over to the discomfort and lost her balance. Per ER notes EMS appreciated confusion when they first evaluated Gena at home, though this appeared to resolve by the time she presented to the ER. She continues to note severe generalized abdominal pain. At her last encounter earlier this month we agreed to start oral Dilaudid for pain control related to her chronic portal vein thrombosis. Our initial plan was to continue Dilaudid 2 mg twice daily from her recent admission to the internal medicine service and then taper down to Dilaudid 2 mg once daily for pain control over the following 2 weeks. She states that she has been on the one 2 mg tablet dose of Dilaudid for the last two days and is appreciating inadequate pain relief. She has followed up with her camera prototyping engineer regarding the recent development of her portal vein thrombosis and is scheduled to see an Opal in hematology early next month for further evaluation of her hypercoagulable state. She is remain compliant on Lovenox it appears her camera prototyping engineer is workingon securing a prior off to continue Lovenox once daily dosing. Gena accurately reports that it is unclear how long her portal vein thrombosis will persist on Lovenox therapy. We discussed her chronic pain in depth. Gena does have a documented history of chronic lower back pain for which she has been intolerant to Lyrica, gabapentin and several forms of muscle relaxantsin the past. Due to her history of renal dysfunction and thrombocytopenia she reports she is unableto take acetaminophen or any form of NSAID therapy. She has a documented history of drug-seeking behavior in the past. We did discuss that I believed her portal vein thrombosis was indeed causing significant abdominal discomfort for her, however I did highlight the abysmal data surrounding chronic use of opiate therapy for noncancer related pain. We discussed that is unlikely her pain will fully resolve even if her thrombosis is quick to resolve with anticoagulation which remains to be seen. Reviewed that while we can pursue opiate therapy for now it is unlikely to manage her pain long-term and will need some additional pain support strategy either in the form of nonopiate pharmacotherapy or non- pharmacotherapy interventions. We discussed that we could go back to a twice daily dosing pattern of Dilaudid, however I discussed with the patient that I am at this time unwilling to increase her dose beyond this level due to her history of falls and reports of altered mental status. Her fallhistory is particularly concerning given her thrombocytopenia and use of anticoagulation that could result in a life-threatening bleed. Gena expresses understanding of these concerns and is willing to accept a restriction on her opiate use to low dose and low frequency Dilaudid while also pursuing evaluation from the comprehensivepain clinic. Severe abdominal pain. Ulcer on Ct scan concerned about this , now on BID ROS as above Medications and history reviewed. Current Outpatient Medications Medication ??? albuterol (ACCUNEB) 2.5 mg /3 mL (0.083 %) nebulizer solution ??? albuterol 90 mcg/actuation inhaler ??? albuterol 90 mcg/actuation inhaler ??? enoxaparin (LOVENOX) 40 mg/0.4 mL injection ??? furosemide (LASIX) 20 mg tablet ??? HYDROmorphone (DILAUDID) 2 mg tablet ??? HYDROmorphone (DILAUDID) 2 mg tablet ??? levothyroxine (SYNTHROID) 25 mcg tablet ??? magnesium oxide (MAG-OX) 400 mg (241.3 mg magnesium) tablet ??? omeprazole (PRILOSEC) 40 mg capsule ??? ondansetron (ZOFRAN) 4 mg [...] mL (0.083 %) nebulizer solution OBJECTIVE: BP 102/60 (BP Cuff Location: Left arm, BP Patient Position: Sitting, BP Cuff Sizes: Adult, regular) Pulse 80 Comment: r Temp 36.5 ??C (97.7 ??F) (Temporal) Resp 16 Wt 88.7 kg (195 lb 9.6 oz) BMI 33.57 kg/m?? Gen: Uncomfortable appearing middle-aged female, NAD HEENT: EOMI, PERRL, oropharynx moist, conjunctiva pink, no scleral injection/ icterus Abd: Distended abdomen, diffusely tender in all quadrants to light palpation, hepatomegaly appreciated Extrem: no edema, warm and well perfused Skin: No rashes or erythema, intact Neuro: A&Ox3, CN II through XII grossly intact Recent Labs/Imaging: Reviewed in epic ASSESSMENT and PLAN: Tara was seen today for post-ed follow up. 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 Had an extensive discussion with the patient today regarding her chronic pain management. They are in agreement for now to returnto Dilaudid 2 mg twice daily as needed, however we discussed the abysmal track record of ongoing opiate therapy for noncancer related chronic pain. I cautioned that given her history of falls and current anticoagulation with thrombocytopenia I am unwilling to increase her Dilaudid dosage beyond this point due to risk of further injuries. We did discuss however consulting the comprehensive pain ser vice to see if there are other nonpharmacological interventions that can assist in her pain and ultimately give us a more appropriate pain control strategy in the long-term. -We will provide the patient with an additional 14 pill supply of Dilaudid to allow her to return to twice daily as needed dosing through this month. -We will plan starting early next month for a 28-day refill of Dilaudid at twice daily dosing. -We will have patient return to clinic in 6 weeks -We will refer to the comprehensive pain clinic for further review and advice regarding pain management Duodenal ulcer: High concern for presence of duodenal ulcer on recent CT abdomen and pelvis. Patient is at a high risk for GI bleed given her history of thrombocytopenia and current anticoagulation for her thrombosis. -Heavily encouraged compliance with omeprazole 40 mg twice daily -No follow-up with GI scheduled at this time. Will await final assessment from hematology on duration of anticoagulation therapy. Assuming patient can come off of Lovenox in the future could considerEGD at that time to follow-up on her ulcer presence. Portal vein thrombosis, Splenic vein thrombosis: -Continue Lovenox 40 mg daily -Follow-up with hematology as scheduled F/u: Return in about 6 weeks (around 06/25/2021). Some of this note was transcribed with [employer] dictating software. While it was proofread, it may still contain unnoticed grammatical or word errors due to incorrect transcribing. Emigdio Veronica MD 05/16/2021 9:33 documented in this encounter Plan of Treatment Upcoming Encounters Date Type Department Care Team (Late st Contact Info) Description 01/04/2025 13:00 EST Office Visit [facility] - [address] [address] Gagandeep Rome MD [address] [place] [address], [facility] [address] [place] [phone] 02/11/2025 13:30 EDT Telemedicine [facility] Hematology & Oncology [address] [phone] Dana Padilla MD [address] [place] [address] [address] [place] [phone] documented as of this encounter Visit Diagnoses Diagnosis Chronic pain syndrome- Primary Duodenal ulcer Duodenal ulcer, unspecified as acute or chronic, without hemorrhage, perforation, or obstruction Portal vein thrombosis Splenic vein thrombosis Other diseases of spleen documented in this encounter Discontinued Medications Medication Sig Discontinue Reason Start Date End Da te methocarbamoL (ROBAXIN) 750 mg tablet Take 1 Tab by mouth 3 times daily as needed for Muscle Spasms (abdominal pain). Patient Stopped Taking 04/25/2021 05/16/2021 HYDROmorphone (DILAUDID) 2 mg tablet Take 1 Tab by mouth every 12 hours as needed for 14 days for Pain, THEN 1 Tab daily as needed for up to 14 days for Pain. Daily Max: 4 mg. 04/29/2021 05/16/2021 HYDROmorphone (DILAUDID) 2 mg tablet Take 1 Tablet by mouth every 12 hours as needed for Pain. Daily Max: 4 mg 05/14/2021 05/16/2021 documented as of this encounter Care Teams Leather Belt Shaper Relationship Specialty Start Date End Date Emigdio Veronica MD [address] [place] [phone] PCP - General Internal Medicine - Primary Care 05/22/20 02/21/24 documented as of this encounter
--- OUTSIDE RECORDS SUMMARY | 2024-11-22 17:15 | XMS_ITS | Encounter Summary ---
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 30 Syringe 5 05/15/2021 06/12/2021 documented in this encounter Plan of Treatment Upcoming Encounters Date Type Department Care Team (Late st Contact Info) Description 01/04/2025 13:00 EST Office Visit [facility] Ophthalmology - [address] [phone] Gagandeep Rome MD [address] [place] [address], [facility] [address] [place] [phone] 02/11/2025 13:30 EDT Telemedicine [facility] Hematology & Oncology [address] [phone] Dana Padilla MD [address] [place] [address] 2 [place] [phone] documented as of this encounter Visit Diagnoses Not on filedocumented in this encounter Discontinued Medications Medication Sig Discontinue Reason Start Date End Da te enoxaparin (LOVENOX) 40 mg/0.4 mL injection Inject 40 mg into the skin daily for 30 days. Reorder 05/15/2021 05/15/2021 documented as of this encounter Care Teams Engineering Job Titles Relationship Specialty Start Date End Date Emigdio Veronica MD [address] [place] [phone] PCP - General Internal Medicine - Primary Care 05/22/20 02/21/24 documented as of this encounter
--- OUTSIDE RECORDS SUMMARY | 2024-11-22 17:15 | XMS_ITS | Encounter Summary ---
Author Organization [facility] Address [address] [place] [address] Care Team Providers Care Software Architect Name Role Phone Emigdio Veronica MD Primary Care Provider + Reason for Visit * Reason Onset Date Comments Appointment Related 05/15/2021 Encounter Details Date Type Department Care Team (Late st Contact Info) Description 05/15/2021 Telephone [facility] Cancer Center Hematology & Oncology - [facility] [address] [place], [place] [phone] Brenda Joseph, AVIATION SUPPORT EQUIPMENT REPAIRER [address] [facility], [address] [place] [address] Appointment Related Social History Tobacco [...] 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 (5 years old or older) Answer Entry Date Author No 04/23/2021 13:50 EDT Lynn Monroe RN documented in this encounter Miscellaneous Notes * Telephone Encounter - Maryjane Loenora - 05/15/2021 0822 EDT Called pt with new appt on 05/28 cx 06/01 documented in this encounter Plan of Treatment Upcoming Encounters Date Type Department Care Team (Late st Contact Info) Description 01/04/2025 13:00 EST Office Visit [facility] Ophthalmology - [address] [phone] Gagandeep Rome MD [address] [place] [address], [facility] [address] [place] [phone] 02/11/2025 13:30 EDT Telemedicine [facility] Hematology & Oncology - [address] [phone] Dana Padilla MD [address] [place] [address], [facility] [address] [place] [phone] documented as of this encounter Visit Diagnoses Not on filedocumented in this encounter Care Teams Software Architect Relationship Specialty Start Date End Date Emigdio Veronica MD [address] [place] [phone] PCP - General Internal Medicine - Primary Care 05/22/20 02/21/24 documented as of this encounter
--- OUTSIDE RECORDS SUMMARY | 2024-11-22 17:15 | XMS_ITS | Encounter Summary ---
Author Organization [facility] Address [address] [place] [address] Care Team Providers Care Corporate Intern Name Role Phone Emigdio Veronica MD Primary Care Provider + Encounter Details Date Type Department Care Team (Late st Contact Info) Description 05/06/2021 14:15 EDT Phlebotomy Only [facility] ED Center 2 Phlebotomy [address] [place], [place] [phone] Development Mechanic, [facility] Phlebotomy Pancytopenia ([facility]); Elevated serum creatinine; Portal vein thrombosis Social History Tobacco Use [...] 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 [...] Office Visit [facility] Ophthalmology - [address] [phone] Gagandeep Rome MD 111 [facility], [address] [place] [phone] 02/11/2025 13:30 EDT Telemedicine [facility] Hematology & Oncology - [address] [phone] Dana Padilla MD 111 [facility], [address] [place] [phone] documented as of this encounter Procedures Procedure Name Priority Date/Time Associated Diagnosis Comments DIFFERENTIAL, AUTOMATED MANUAL Today 05/06/2021 14:15 EDT Portal vein thrombosis COMPREHENSIVE METABOLIC PANEL (ONCOLOGY USE ONLY-INC MG) STAT 05/06/2021 14:15 EDT Portal vein thrombosis COMPLETE BLOOD COUNT AND DIFFERENTIAL STAT 05/06/2021 14:15 EDT Portal vein thrombosis documented in this encounter Results * (ABNORMAL) DIFFERENTIAL, AUTOMATED MANUAL (05/06/2021 14:15 EDT) % Neutrophils 78.9 % 05/06/2021 15:02 EDT [facility] % Lymphocytes 7.9 % 05/06/2021 15:02 EDT [facility] % Monocytes 8.8 % 05/06/2021 15:02 EDT [facility] % Eosinophils 3.5 % 05/06/2021 15:02 EDT [facility] % Basophils 0.9 % 05/06/2021 15:02 EDT [facility] Absolute Neutrophils 0.96(L) 2.20 - 8.85 K/cmm 05/06/2021 15:02 [facility] Absolute Lymphocytes 0.10(L) 1.09 - 3.30 K/cmm 05/06/2021 15:02 [facility] Absolute Monocytes 0.11 0.10 - 0.80 K/cmm 05/06/2021 15:02 [facility] Absolute Eosinophils 0.04 0.03 - 0.61 K/cmm 05/06/2021 15:02 [facility] ABS Basophils 0.01 0.01 - 0.11 K/cmm 05/06/2021 15:02 [facility] Blood VENOUS BLOOD / Unknown Venipuncture / Unknown 05/06/2021 14:15 EDT 05/06/2021 14:19 EDT Starr Paige MD HEMATOLOGY & PF4 ORDERABLES Final Result [facility] [address] [place] [address] * COMPREHENSIVE METABOLIC PANEL (ONCOLOGY USE ONLY-INC MG) (05/06/2021 14:15 EDT) Sodium 139 136 - 145 mEq/L 05/06/2021 14:56 [facility] Potassium 4.3 3.5 - 5.0 mEq/L 05/06/2021 14:56 [facility] Chloride 103 96 - 110 mEq/L 05/06/2021 14:56 [facility] CO2 Total 25 22 - 32 mEq/L 05/06/2021 14:56 [facility] Glucose 97 70 - 100 mg/dL 05/06/2021 14:56 [facility] BUN 10 10 - 26 mg/dL 05/06/2021 14:56 [facility] Creatinine 0.93 0.52 - 1.04 mg/dL 05/06/2021 14:56 [facility] eGFR 67 >60 mL/min/1.7 3m2 05/06/2021 14:56 [facility] Comment:eGFR calculated lobito coppola CKD-EPI equation for non- Americans. Multiply eGFR by 1.16 for patients. Total Protein 6.4 6.3 - 8.2 g/dL 05/06/2021 14:56 [facility] Albumin 3.6 3.4 - 4.9 g/dL 05/06/2021 14:56 [facility] Alkaline Phosphatase 93 38 - 126 U/L 05/06/2021 14:56 [facility] AST 24 15 - 46 U/L 05/06/2021 14:56 [facility] ALT 15 <35 U/L 05/06/2021 14:56 [facility] Bilirubin, Total <0.5 <1.4 mg/dL 05/06/20 14:56 [facility] Calcium 9.3 8.5 - 10.5 mg/dL 05/06/2021 14:56 [facility] Calculated Calcium 9.6 8.5 - 10.5 mg/dL 05/06/2021 14:56 [facility] Magnesium 1.7 1.7 - 2.8 mg/dL 05/06/2021 14:56 [facility] Blood VENOUS BLOOD / Unknown Venipuncture / Unknown 05/06/2021 14:15 EDT 05/06/2021 14:19 EDT us Starr Paige MD CHEMISTRY & BLOOD GAS ORDER YANN Final Result [facility] [address] [place] [address] * (ABNORMAL) COMPLETE BLOOD COUNT AND DIFFERENTIAL (05/06/2021 14:15 EDT) WBC 1.22(L) 4.00 - 12.40 K/cmm 05/06/2021 14:35 T [facility] RBC 3.92 3.86 - 5.04 M/cmm 05/06/2021 14:35 [facility] Hemoglobin 11.1(L) 11.6 - 15.2 gm/dL 05/06/2021 14:35 [facility] HCT 33.9(L) 34.9 - 44.4 % 05/06/2021 14:35 [facility] MCV 87 81 - 98 fl 05/06/2021 14:35 [facility] MCH 28.3 26.7 - 33.3 pg 05/06/2021 14:35 [facility] MCHC 32.7 32.1 - 35.9 gm/dL 05/06/2021 14:35 [facility] RDW-CV 15.2(H) <14.7 % 05/06/2021 14:35 [facility] RDW-SD 48.0 <50.4 fl 05/06/2021 14:35 [facility] PLT 51(L) 141 - 377 K/cmm 05/06/2021 14:35 [facility] MPV 11.0 9.5 - 12.7 fl 05/06/2021 14:35 [facility] Type of Differential: Manual 05/06/2021 14:35 [facility] Blood VENOUS BLOOD / Unknown Venipuncture / Unknown 05/06/2021 14:15 EDT 05/06/2021 14:19 EDT us Starr Paige MD PACKAGES & DNA PROBE ORDERA BLES Final Result [facility] [address] [place] [address] documented in this encounter Visit Diagnoses Diagnosis Pancytopenia (HCC-CMS) Other pancytopenia Elevated serum creatinine Other nonspecific findings on examination of blood Portal vein thrombosis documented in this encounter Care Teams Corporate Intern Relationship Specialty Start Date End Date Emigdio Veronica MD [address] [place] [phone] PCP - General Internal Medicine - Primary Care 05/22/20 02/21/24 documented as of this encounter
--- OUTSIDE RECORDS SUMMARY | 2024-11-22 17:15 | XMS_ITS | Encounter Summary ---
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 [address] [place] [phone] 02/11/2025 13:30 EDT Telemedicine [facility] Hematology & Oncology - [address] [address] Dana Padilla MD [address] [place] [address], [facility] [address] [place] [phone] documented as of this encounter Visit Diagnoses Diagnosis Portal vein thrombosis- Primary documented in this encounter Care Teams Maori Physiotherapist Relationship Specialty Start Date End Date Emigdio Veronica MD [address] [place] [phone] PCP - General Internal Medicine - Primary Care 05/22/20 02/21/24 documented as of this encounter
--- OUTSIDE RECORDS SUMMARY | 2024-11-22 17:15 | XMS_ITS | Encounter Summary ---
Author Organization [facility] Address [address] [place] [address] Care Team Providers Care Residential Real Estate Appraiser Name Role Phone Emigdio Veronica MD Primary Care Provider + Reason for Visit * Reason Onset Date Comments Medication Reaction 05/11/2021 Lovenox Encounter Details Date Type Department Care Team (Late st Contact Info) Description 05/11/2021 Telephone [facility] H[facility] Oncology - [facility] [address] [place] [address] Starr Paige MD [address] [place] [address] Medication Reaction (Lovenox) Social History Tobacco Use Types Packs/Day Years [...] 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 Since starting Lovenox she has had very bad diarrhea along with not being able to keep anything down. Please call to discuss documented in this encounter Plan of Treatment Upcoming Encounters Date Type Department Care Team (Late st Contact Info) Description 01/04/2025 13:00 EST Office Visit [facility] Ophthalmology - [address] [id number] Gagandeep Rome MD [address] [place] [address], [facility] [address] [place] [phone] 02/11/2025 13:30 EDT Telemedicine [facility] Hematology & Oncology - [address] [id number] Dana Padilla MD [address] [place] [address], [facility] [address] [place] [phone] documented as of this encounter Visit Diagnoses Not on filedocumented in this encounter Care Teams Residential Real Estate Appraiser Relationship Specialty Start Date End Date Emigdio Veronica MD [address] [place] [id number] PCP - General Internal Medicine - Primary Care 05/22/20 02/21/24 documented as of this encounter
--- OUTSIDE RECORDS SUMMARY | 2024-11-22 17:15 | XMS_ITS | Encounter Summary ---
Author Organization [facility] Address [address] [place] [address] Care Team Providers Care Industrial Designer Name Role Phone Emigdio Veronica MD Primary Care Provider + Reason for Visit * Reason Comments Fall Pt brought in by EMS from home. Pt had an unwitnessed fall from reported standing height approximately 40 minutes ago. Pt was walking in her house and went down. +LOC for approx. 5 minutes, unknown headstrike. Pt has hx of blood clots in stomach and was recently discharged from the [facility] on lovanox shots. Pt endorsing 10/10 abdominal pain that started last night, which radiates to the right side of her back. Pt was initially confused on when EMS arrived and has become more alert. Pt AOx4. 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 No / Unsure 05/08/2021 13:26 EDT documented as of this encounter Last Filed Vital Signs Vital Sign Reading Time Taken Comments Blood Pressure 107/61 05/08/2021 1700 EDT Pulse - - Temperature 37.5 ??C (99.5 ??F) 05/08/2021 1756 EDT Respiratory Rate 23 05/08/2021 1700 EDT Oxygen Saturation 98% 05/08/2021 1700 EDT Inhaled Oxygen Concentration - - Weight 79.4 kg (175 lb) 05/08/2021 1324 EDT Height 162.6 cm (5' 4) 05/08/2021 1324 EDT Body Mass Index 30.04 05/08/2021 1324 EDT documented in this encounter [...] Lynn Monroe RN * Do you have difficulty dressing [...] Lynn Monroe RN documented in this encounter Discharge Instructions * Discharge Instructions* Zully Salmon MD - 05/08/2021 17:45 EDT Thank you for coming to the emergency department today. Your evaluation showed no acute traumatic injuries. Your blood clot in your liver is stable. However, you do look like you have an ulcer in your duodenum. Please increase your omeprazole to 40 mg twice a day. Please contact your supervisor cell room. Also contact your primary care provider on Tuesday to schedule a close follow-up appointment next week. Please return to the emergency department at any time if you develop any new, changing, or worsening symptoms. Specifically, return immediately if you develop any vomiting of blood or any bloody or dark and tarry stools. documented in this encounter Medications at Time [...] directed every 4 hours as needed. 1 enoxaparin (LOVENOX) 40 mg/0.4 mL injection Inject 40 mg into the skin daily for 30 days. 30 Syringe 04/25/2021 1 furosemide (LASIX) 20 mg tablet Take 1 Tab by mouth daily. 90 Tab 1 04/10/2021 1 HYDROmorphone (DILAUDID) 2 mg tablet Take 1 Tab by mouth every 12 hours as needed for 14 days for Pain, THEN 1 Tab daily as needed for up to 14 days for Pain. Daily Max: 4 mg. 42 Tab 04/29/2021 1 levothyroxine (SYNTHROID) 25 mcg tablet Take 1 Tab by mouth daily. Unknown dose 90 Tab 3 11/03/2020 1 magnesium oxide (MAG-OX) 400 mg (241.3 mg magnesium) tablet Take 1 Tab by mouth daily. 200 Tab 3 12/15/2020 1 methocarbamoL (ROBAXIN) 750 mg tablet Take 1 Tab by mouth 3 times daily as needed for Muscle Spasms (abdominal pain). 30 Tab 04/25/2021 1 omeprazole (PRILOSEC) 20 mg capsule Take 2 Capsules by mouth 2 times daily for 30 days. 120 capsule 05/08/2021 1 ondansetron (ZOFRAN) 4 mg tablet Take [...] HFA aerosol inhaler inhalerIndicatio ns:COPD with asthma ([facility]) Inhale 2 Puffs as directed daily. 1 Inhaler 11 06/20/2020 1 traZODone (DESYREL) 100 mg tablet Take 2 Tabs by mouth at bedtime. 180 Tab 1 04/10/2021 1 documented as of this encounter Ordered Prescriptions Prescription Sig Dispense Quantity Refills Last Filled Start Date End Date omeprazole (PRILOSEC) 20 mg capsule Take 2 Capsules by mouth 2 times daily for 30 days. 120 capsule 05/08/2021 1 documented in this encounter Discharge Disposition Disposition Code Departure Means Destination Home or Self Alf documented in this encounter ED Notes * Laurent Chaudhry MD - 05/08/2021 1821 EDT DOS: 05/08/2021 Chief Complaint Patient presents with ??? Fall Pt brought in by EMS from home. Pt had an unwitnessed fall from reported standing height approximately 40 minutes ago. Pt was walking in her house and went down. +LOC for approx. 5 minutes, unknown headstrike. Pt has hx of blood clots in stomach and [facility]. Pt endorsing 10/10 abdominal pain that started last night, which radiates to the right side of her back. Pt was initially confused on when EMS arrived and has become more alert. Pt AOx4. HPI The patient is a 60 y.o. female who presents today with Fall (Pt brought in by EMS from home. Pt had an unwitnessed fall from reported standing height approximately 40 minutes ago. Pt was walking in her house and went down. +LOC for approx. 5 minutes, unknown headstrike. Pt has hx of blood clots instomach and was recently discharged from the [facility] on lovanox shots. Pt endorsing 10/10 abdominal pain that started last night, which radiates to the right side of her back. Pt was initially confused on when EMS arrived and has become more alert. Pt AOx4. ) 60 yr old female. States she fell, did not pass out but believes she may have hit her head as she believes she was unconscious She does remember falling down. Now AO. Denies feeling palpitations or chest pain or fever. Complainign now of BRIGHT and pain in abdomen where she has prior blood clots in liver vein. Review of Systems Review of Systems Constitutional: Negative for activity change. HENT: Negative. Respiratory: Negative. Cardiovascular: Negative. Gastrointestinal: Positive for abdominal pain. Neurological: Negative. All other systems reviewed and are negative. Allergies Allergen Reactions ??? Morphine Anaphylaxis ??? Sulfa (Sulfonamide Antibiotics) Anaphylaxis ??? Tylenol [Acetaminophen] Other (See Comments) Contraindication with medical hx ??? Flagyl [Metronidazole] Other (See Comments) Fatigue ??? Aspirin Other (See Comments) Contraindication with medical hx ??? Injectafer [Ferric Carboxymaltose] ??? Lyrica [Pregabalin] Anxiety Insomnia ??? Reglan [Metoclopramide Hcl] Rash Vital Signs Vitals Reassessment?: Yes Temp: 37.5 ??C (99.5 ??F) Temp src: Oral Heart Rate: 92 BPM Resp: 23 SpO2: 98 % BP: 107/61 BP MAP: 73 mm Hg BP Device: BP Machine BP Patient Position: Supine BP Cuff Location: Left arm O2 Device: None (Room air) Physical Exam Constitutional: General: She is not in acute distress. Appearance: Normal appearance. She is normal weight. She is not ill-appearing. HENT: Head: Normocephalic and atraumatic. Nose: Nose normal. Mouth/Throat: Mouth: Mucous membranes are moist. Cardiovascular: Rate and Rhythm: Normal rate and regular rhythm. Pulses: Normal pulses. Heart sounds: Normal heart sounds. Pulmonary: Effort: Pulmonary effort is normal. Breath sounds: Normal breath sounds. Abdominal: General: Abdomen is flat. Tenderness: There is abdominal tenderness. There is guarding. Musculoskeletal: General: No swelling. Cervical back: Normal range of motion. Skin: General: Skin is warm and dry. Neurological: General: No focal deficit present. Mental Status: She is alert and oriented to person, place, and time. Mental status is at baseline. Cranial Nerves: No cranial nerve deficit. Sensory: No sensory deficit. Motor: No weakness. Gait: Gait normal. Psychiatric: Mood and Affect: Mood normal. Behavior: Behavior normal. RESULTS EKG orders: EKG 12-LEAD ECG Reviewed: Findings include:The study has been independently viewed by me. The study has been interpreted independently and contemporaneously by me. The EKG appears to be a good tracing. Attendingcardiologist not immediately available for acute interpretation. Radiology orders: CT HEAD WO CONTRAST CT ABDOMEN PELVIS W CONTRAST Imaging Reviewed. I have independently reviewed the images. Procedures ED COURSE A medical screening exam was performed. Final diagnoses: Fall, initial encounter Duodenal ulcer DISPOSITION: Discharged The patient's pain was managed to an adequate level weighing risk vs. benefit of further medications. Upon departure from the Emergency Department, the patient's pain was on a zero to ten scale. Any further pain treatment will be at the discretion of the provider following up with the patient based on their clinical assessment. Condition at departure from the Emergency Department: stable PCP: Emigdio Veronica [place] Number of Diagnoses or Management Options Duodenal ulcer Fall, initial encounter Diagnosis management comments: 60 yr old female with fall on blood thinners. Will sign out to oncoming provider with imaging pending. Amount and/or Complexity of Data Reviewed Clinical lab tests: ordered Tests in the radiology section of CPT??: ordered Tests in the medicine section of CPT??: ordered 05/09/2021 20:08 No flowsheet data found. * Zully Salmon MD - 05/08/2021 1821 EDT Phyliss E Boothe is a 60 y.o. female who presents to the ED after a fall from standing height. She is amnestic to the fall. She is also complaining of severe abdominal pain. She has a history of [place] cirrhosis and portal vein thrombosis on Lovenox as well as chronic opiate use. Care and work-up prior to sign out includes laboratory studies. I assumed care of patient from Dr. Laurent Chaudhry with CT scan head and CT scan abdomen pending. Her cervical spine was clinically cleared. After I assumed care the patient had CT scan of the head without contrast showing no evidence of intracranial hemorrhage, acute infarction, or mass. The patient had a CT scan of the abdomen and pelvis with contrast showing findings suspicious for an ulcer at the duodenal bulb/pylorus with no evidence of rupture, cirrhotic configuration of the liver with stigmata of portal hypertension and thrombus along the wall of the main portal vein and splenic vein which is unchanged from 3 weeks prior. Patient continues to complain of abdominal pain. At this time, I suspect that her pain is primarilydue to her peptic ulcer given that no traumatic injuries are identified and her portal vein thrombus appears to be stable. GI cocktail is administered, the patient feels considerably improved afterward. The patient takes omeprazole 20 mg daily, and at this time I would like to increase that to 40 mg twice daily for full treatment dose of peptic ulcer disease. She may also use [id number] Maalox as needed. She is advised to follow-up with her supervisor cell room and her primary care providerand to return to the emergency department as needed if she develops any new, changing, or worseningsymptoms. Specifically, we discussed that if she begins to vomit any bloody or dark material or develops dark or tarry stool, she should return immediately to the emergency department. She expresses understanding. . * Valeriy Trevizo RN - 05/08/2021 1534 EDT 1505- Report received from Serene Lyon RN, assumed care at this time. Pt Resting in stretcher on bedsidecardiac nibp and spo2 monitors. Pt Reporting severe LUQ pain. Md Chaudhry notified and aware, Orders received, medicated per MAR. 1515- Pt Requesting Zofran for frequent dry heaves. Aware, Pt Awaiting CT, quickly on cellphone once this RN Leaves room. 1545- TO Ct in stretcher off monitor W/ claims technician 1600- Back from CT Back on monitors, reports improving pain now 7/10 which pt reports as Tolerable. Call hines in reach, awaiting CT Results. Pt Resting in stretcher on Phone appears in NAD 1630- PT Writhing in stretcher, rolling back and fourth reporting pain level is now Severe and unbearable VS unchanged. Hr 72, BP 117/72. MD Lira notified and aware 1705-Medical evaluation in progress, Zully Salmon MD at bedside 1800- Patient discharged with instructions and follow up information. All questions answered by provider and this nurse. PIV removed prior to discharge and patient ambulated out of department with steady gait. Patient aware of signs/symptoms to return to ED. Pt Reports feeling improved at time of D/C and intends to follow up w/ PCP * Serene Charles - 05/08/2021 1431 EDT Resting in stretcher, awaiting CT * Serene Charles - 05/08/2021 1354 EDT Meds administered per order, see MAR. Pt awaiting CT, talking to son on cellphone. * Serene Charles - 05/08/2021 1353 EDT Blood drawn via saline lock per protocol, tiger and purple tube(s) sent to lab per order. * Katherin Dodson RN - 05/08/2021 1329 EDT 12 Lead EKG Performed by KATHERIN FERNANDO RN and shown to Laurent Song MD. * Katherin Dodson RN - 05/08/2021 1327 EDT Chief Complaint Patient presents with ??? Fall Pt brought in by EMS from home. Pt had an unwitnessed fall from reported standing height approximately 40 minutes ago. Pt was walking in her house and went down. +LOC for approx. 5 minutes, unknown headstrike. Pt has hx of blood clots in stomach and [facility]. Pt endorsing 10/10 abdominal pain that started last night, which radiates to the right side of her back. Pt was initially confused on when EMS arrived and has become more alert. Pt AOx4. Pt has a hx of paresthesia in Left arm and bilateral feet which is baseline for pt. Pt has only received her 1st COVID shot a while ago. Was unable to get the second dose because she was sick and then was in the hospital. Pt arrives AOX4, skin pink warm and dry. Appears in acute pain with guarding of the stomach, groaning and moaning. Pt collared by EMS. BP 107/60 (BP Cuff Location: Left arm, BP Patient Position: Supine) Resp 20 Ht 162.6 cm (64) Wt 79.4 kg (175 lb) SpO2 100% BMI 30.04 kg/m?? documented in this encounter Plan of Treatment Upcoming Encounters Date Type Department Care Team (Late st Contact Info) Description 01/04/2025 13:00 EST Office Visit [facility] Ophthalmology - Main [address] [phone] Gagandeep Rome MD [address] [facility], [address] [place] [phone] 02/11/2025 13:30 EDT Telemedicine [facility] H[facility]ology [facility] Oncology - [facility] [address], [place] [phone] Dana Padilla MD [address] [facility], [address] [place] [phone] documented as of this encounter Procedures Procedure Name Priority Date/Time Associated Diagnosis Comments ECG REPORT - SCANNED 05/22/2021 11:[address] HEAD WO CONTRAST STAT 05/08/2021 1 6:[address] ABDOMEN PELVIS W CONTRAST STAT 05/08/2021 16:15 EDT DIFFERENTIAL, AUTOMATED MANUAL Today 05/08/2021 13:27 EDT HOLD SST STAT 05/08/2021 13:27 EDT HOLD LAVENDER TOP STAT 05/08/2021 13: 27 EDT HOLD GREEN TOP STAT 05/08/2021 13:27 EDT HOLD BLUE TOP STAT 05/08/2021 13:27 EDT COMPLETE BLOOD COUNT AND DIFFERENTIAL STAT Add-on 05/08/2021 13:27 EDT BASIC METABOLIC PANEL (BMP) STAT Add-on 05/08/2021 13:27 EDT EKG 12-LEAD STAT 05/08/2021 13:25 EDT documented in this encounter Results * ECG REPORT - SCANNED (05/22/2021 11:06 EDT) 05/22/2021 11:0 6 EDT us Scan 2 Filling Winder PROCEDURE/MINOR SURGICAL OR DERABLES Final Result * CT ABDOMEN PELVIS W CONTRAST (05/08/2021 16:15 EDT) Anatomical Region Laterality Modality Body, Abdomen, Pelvis, Abdomen and Pelvis Computed Tomography 05/08/2021 16:3 6 EDT Impressions 05/08/2021 16:36 EDT 1. Findings suspicious for an ulcer at the duodenal bulb/pylorus. No evidence of rupture. 2. Cirrhotic configuration of the liver with stigmata of portal hypertension. Thrombus along the wall of the main portal vein and splenic vein is unchanged from 3 weeks prior. 3. Otherwise as above. Narrative 05/08/2021 16:[address] ABDOMEN PELVIS W CONTRAST ??05/08/2021 3:35 PM Signs and Symptoms/Comments: ?? Abdominal pain, acute, nonlocalized Technique: CT of the abdomen and pelvis was performed following the administration intravenous contrast; coronal and sagittal multiplanar reconstructions generated. Comparison: April 23, 2021 Findings: Lower chest: Unremarkable. Hepatobiliary: Redemonstration of cirrhotic configuration of the liver. No focal lesion identified on single phase of contrast. Intrahepatic portosystemic shunt is present in segment 8. Gallbladder surgically absent. Biliary tree dilation is unchanged. Spleen, pancreas, adrenal glands: Marked splenomegaly redemonstrated. Hypoattenuating splenic lesion at the inferior tip is unchanged. Subcentimeter left adrenal adenoma. No suspicious splenic, pancreatic, or adrenal lesions. Kidneys, ureters, bladder: No suspicious renal lesion. No hydroureteronephrosis. Urinary bladder is unremarkable. Uterus, ovaries: Status post hysterectomy. No adnexal mass. Bowel: There is focal outpouching involving the duodenal bulb/pylorus at the inferior margin with adjacent fat stranding. No bowel obstruction. Scattered noninflamed sigmoid diverticula. Peritoneal cavity / Subperitoneal space: Mild diffuse mesenteric edema. No appreciable ascites. No free air or collections. Lymphovascular: Enlargement of the splenic vein and portal vein redemonstrated with no significant change in the size of the thrombus along the wall. Abdominal wall: Abdominal wall venous collaterals are present. Right upper quadrant abdominal wall mesh repair. Mild diffuse abdominal wall edema. No bowel containing hernia. Musculoskeletal: No suspicious osseous lesion. Multilevel degenerative disc disease and facet arthropathy. Copy Camera Operator: No additional findings. Procedure Note Augie Jones MD - 05/08/2021 CT ABDOMEN PELVIS W CONTRAST 05/08/2021 3:35 PM Signs and Symptoms/Comments: Abdominal pain, acute, nonlocalized Technique: CT of the abdomen and pelvis was performed following the administrationintravenous contrast; coronal and sagittal multiplanar reconstructionsgenerated. Comparison: April 23, 2021 Findings: Lower chest: Unremarkable. Hepatobiliary: Redemonstration of cirrhotic configuration of the liver. Nofocal lesion identified on single phase of contrast. Intrahepaticportosystemic shunt is present in segment 8. Gallbladder surgicallyabsent. Biliary tree dilation is unchanged. Spleen, pancreas, adrenal glands: Marked splenomegaly redemonstrated.Hypoattenuating splenic lesion at the inferior tip is unchanged.Subcentimeter left adrenal adenoma. No suspicious splenic, pancreatic, oradrenal lesions. Kidneys, ureters, bladder: No suspicious renal lesion. Nohydroureteronephrosis. Urinary bladder is unremarkable. Uterus, ovaries: Status post hysterectomy. No adnexal mass. Bowel: There is focal outpouching involving the duodenal bulb/pylorus atthe inferior margin with adjacent fat stranding. No bowel obstruction.Scattered noninflamed sigmoid diverticula. Peritoneal cavity / Subperitoneal space: Mild diffuse mesenteric edema. Noappreciable ascites. No free air or collections. Lymphovascular: Enlargement of the splenic vein and portal veinredemonstrated with no significant change in the size of the thrombusalong the wall. Abdominal wall: Abdominal wall venous collaterals are present. Right upperquadrant abdominal wall mesh repair. Mild diffuse abdominal wall edema. Nobowel containing hernia. Musculoskeletal: No suspicious osseous lesion. Multilevel degenerativedisc disease and facet arthropathy. Copy Camera Operator: No additional findings. IMPRESSION 1. Findings suspicious for an ulcer at the duodenal bulb/pylorus. Noevidence of rupture. 2. Cirrhotic configuration of the liver with stigmata of portalhypertension. Thrombus along the wall of the main portal vein and splenicvein is unchanged from 3 weeks prior. 3. Otherwise as above. us Laurent Chaudhry MD IMG CT ORDERABLES Final Res ult * CT HEAD WO CONTRAST (05/08/2021 16:15 EDT) Anatomical Region Laterality Modality Head Computed Tomogra phy 05/08/2021 16:4 2 EDT Impressions 05/08/2021 16:42 EDT No evidence of recent intracranial hemorrhage, acute infarction, or mass. I have personally reviewed the images and the above interpretation and agree with the findings. Narrative 05/08/2021 16:42 EDT EXAM: CT HEAD WO CONTRAST HISTORY: Altered mental status. ?? TECHNIQUE: CT head without contrast. Structured report code: [id number] COMPARISON: CT head 07/11/2018 FINDINGS: PARENCHYMA: No evidence of infarction. No acute parenchymal hemorrhage. No mass or midline shift. Mild global parenchymal volume loss. EXTRA-AXIAL SPACES: No extra-axial hemorrhage. No extra-axial collection. No extra-axial mass. The extra-axial spaces are prominent, as previously noted. VENTRICULAR SYSTEM: Normal size and configuration. No obstructive hydrocephalus. VESSELS: Limited evaluation without IV contrast. Normal density in the dural venous sinuses. Calcification in the carotid siphons. BONES: No concerning lesions. No evidence of fracture. ORBITS: No significant abnormality. PARANASAL SINUSES/MASTOID AIR CELLS: Predominantly clear. EXTRACRANIAL SOFT TISSUES: Unremarkable. Procedure Note Gregg Peñaloza MD - 05/08/2021 EXAM: CT HEAD WO CONTRAST HISTORY: Altered mental status. TECHNIQUE: CT head without contrast. Structured report code: [id number] COMPARISON: CT head 07/11/2018 FINDINGS: PARENCHYMA: No evidence of infarction. No acute parenchymal hemorrhage. No mass ormidline shift. Mild global parenchymal volume loss. EXTRA-AXIAL SPACES: No extra-axial hemorrhage. No extra-axial collection. No extra-axial mass.The extra-axial spaces are prominent, as previously noted. VENTRICULAR SYSTEM: Normal size and configuration. No obstructive hydrocephalus. VESSELS: Limited evaluation without IV contrast. Normal density in the dural venoussinuses. Calcification in the carotid siphons. BONES: No concerning lesions. No evidence of fracture. ORBITS: No significant abnormality. PARANASAL SINUSES/MASTOID AIR CELLS: Predominantly clear. EXTRACRANIAL SOFT TISSUES: Unremarkable. IMPRESSION No evidence of recent intracranial hemorrhage, acute infarction, ormass. I have personally reviewed the images and the above interpretation andagree with the findings. us Laurent Chaudhry MD IMG CT ORDERABLES Final Res ult * (ABNORMAL) DIFFERENTIAL, AUTOMATED MANUAL (05/08/2021 13:27 EDT) % Neutrophils 86.1 % 05/08/2021 14:23 [facility] % Lymphocytes 7.0 % 05/08/2021 14:23 [facility] % Monocytes 5.2 % 05/08/2021 14:23 [facility] % Eosinophils 1.7 % 05/08/2021 14:23 [facility] Schistocytes Increased schistocytes are seen but less than 1% (1+) of the RBCs 05/08/2021 14:23 [facility] Absolute Neutrophils 1.64(L) 2.20 - 8.85 K/cmm 05/08/2021 14:23 [facility] Absolute Lymphocytes 0.13(L) 1.09 - 3.30 K/cmm 05/08/2021 14:23 [facility] Absolute Monocytes 0.10 0.10 - 0.80 K/cmm 05/08/2021 14:23 [facility] Absolute Eosinophils 0.03 0.03 - 0.61 K/cmm 05/08/2021 14:23 [facility] Blood VENOUS BLOOD / Unknown Venipuncture / Unknown 05/08/2021 13:27 EDT 05/08/2021 13:52 EDT Laurent Chaudhry MD HEMATOLOGY & PF4 ORDERABLES Final Result [facility] [address] [place] [id number] * (ABNORMAL) COMPLETE BLOOD COUNT AND DIFFERENTIAL (05/08/2021 13:27 EDT) WBC 1.90(L) 4.00 - 12.40 K/cmm 05/08/2021 13:59 [facility] RBC 4.18 3.86 - 5.04 M/cmm 05/08/2021 13:59 [facility] Hemoglobin 12.0 11.6 - 15.2 gm/dL 05/08/2021 13:59 [facility] HCT 35.8 34.9 - 44.4 % 05/08/2021 13:59 [facility] MCV 86 81 - 98 fl 05/08/2021 13:59 [facility] MCH 28.7 26.7 - 33.3 pg 05/08/2021 13:59 [facility] MCHC 33.5 32.1 - 35.9 gm/dL 05/08/2021 13:59 [facility] RDW-CV 15.0(H) <14.7 % 05/08/2021 13:59 [facility] RDW-SD 47.2 <50.4 fl 05/08/2021 13:59 [facility] PLT 56(L) 141 - 377 K/cmm 05/08/2021 13:59 [facility] MPV 10.2 9.5 - 12.7 fl 05/08/2021 13:59 [facility] Type of Differential: Manual 05/08/2021 13:59 [facility] Blood VENOUS BLOOD / Unknown Venipuncture / Unknown 05/08/2021 13:27 EDT 05/08/2021 13:52 EDT us Laurent Chaudhry MD PACKAGES & DNA PROBE ORDERA BLES Final Result [facility] [address] [place] [address] * BASIC METABOLIC PANEL (BMP) (05/08/2021 13:27 EDT) Sodium 139 136 - 145 mEq/L 05/08/2021 14:08 [facility] Potassium 4.5 3.5 - 5.0 mEq/L 05/08/2021 14:08 [facility] Chloride 104 96 - 110 mEq/L 05/08/2021 14:08 [facility] CO2 Total 26 22 - 32 mEq/L 05/08/2021 14:08 [facility] Glucose 91 70 - 100 mg/dL 05/08/2021 14:08 [facility] Calcium 9.2 8.5 - 10.5 mg/dL 05/08/2021 14:08 [facility] Calculated Calcium 9.3 8.5 - 10.5 mg/dL 05/08/2021 14:08 [facility] BUN 13 10 - 26 mg/dL 05/08/2021 14:08 [facility] Creatinine 1.00 0.52 - 1.04 mg/dL 05/08/2021 14:08 [facility] eGFR 61 >60 mL/min/1.7 3m2 05/08/2021 14:08 [facility] Comment:eGFR calculated lobito coppola CKD-EPI equation for non- Americans. Multiply eGFR by 1.16 for patients. Blood VENOUS BLOOD / Unknown Venipuncture / Unknown 05/08/2021 13:27 EDT 05/08/2021 13:52 EDT us Laurent Chaudhry MD CHEMISTRY & BLOOD GAS ORDER YANN Final Result [facility] [address] [place] [address] * HOLD SST (05/08/2021 13:27 EDT) Hold Hold 05/08/2021 15:01 T [facility] Blood VENOUS BLOOD / Unknown Venipuncture / Unknown 05/08/2021 13:27 EDT 05/08/2021 13:52 EDT us Laurent Chaudhry MD LAB INFO SERVICE AND SUPPOR T & PHONE RESULT Final Result Performing Organization Address [facility]/ZIP Co de Phone Number [facility] [address] [place] [address] * HOLD LAVENDER TOP (05/08/2021 13:27 EDT) Hold Hold 05/08/2021 15:01 EDT [facility] Blood VENOUS BLOOD / Unknown Venipuncture / Unknown 05/08/2021 13:27 EDT 05/08/2021 13:52 EDT us Laurent Chaudhry MD LAB INFO SERVICE AND SUPPOR T & PHONE RESULT Final Result Performing Organization Address [facility] Co de Phone Number [facility] [address] [place] [address] * HOLD GREEN TOP (05/08/2021 13:27 EDT) Hold Hold 05/08/2021 15:01 EDT [facility] Blood VENOUS BLOOD / Unknown Venipuncture / Unknown 05/08/2021 13:27 EDT 05/08/2021 13:52 EDT us Laurent Chaudhry MD LAB INFO SERVICE AND SUPPOR T & PHONE RESULT Final Result Performing Organization Address [facility]/ZIP Co de Phone Number [facility] [address] [place] [address] * HOLD BLUE TOP (05/08/2021 13:27 EDT) Hold Hold 05/08/2021 15:01 EDT [facility] Blood VENOUS BLOOD / Unknown Venipuncture / Unknown 05/08/2021 13:27 EDT 05/08/2021 13:52 EDT us Laurent Chaudhry MD LAB INFO SERVICE AND SUPPOR T & PHONE RESULT Final Result [facility] [address] [place] [address] * EKG 12-LEAD (05/08/2021 13:25 EDT) 05/08/2021 13:2 5 EDT Narrative [facility] EKG - 05/22/2021 11:01 EDT ?[facility] Emergency ? Test Date: ?2021-05-08 Pat Name: ? PHYLISS BOOTHE ?Department: ?? ED ? Room: ? AC07 Gender: ? Female ? Distribution Dispatcher: ?? [id number] : ?1960 ? Requested By: MAC Leonardo Order Number: [id number] ? Jose PHIPPS: ?? JOHNNIE BETANCOURT MD ? Measurements Intervals ?Camby ? Rate: ? 88 ? P: ?72 OK: ? 147 ?QRS: ?82 QRSD: ? 88 ? T: ?28 QT: ? 353 ? QTc: ?428 ? Interpretive Statements SINUS RHYTHM POSSIBLE LEFT ATRIAL ENLARGEMENT Automated Interpretation. ??Provider Interpretation to follow. Compared to ECG 04/22/2021 23:27:13 No significant changes I reviewed the tracing and have either agreed or edited the findings in this report. Electronically Signed On 05-22-2021 11:01:24 EDT by JOHNNIE BETANCOURT MD. Procedure Note Johnnie Betancourt MD - 05/22/2021 [facility] Emergency Test Date: 2021-05-08 Pat Name: TARA BOOTHE Department: ED Room: [facility] Gender: Female Distribution Dispatcher: [id number] : 1960 Requested By: MAC Leonardo Order Number: [id number] Reading MD: JOHNNIE BETANCOURT MD Measurements Intervals Camby Rate: 88 P: 72 OK: 147 QRS: 82 QRSD: 88 T: 28 QT: 353 QTc: 428 Interpretive Statements SINUS RHYTHM POSSIBLE LEFT ATRIAL ENLARGEMENT Automated Interpretation. Provider Interpretation to follow. Compared to ECG 04/22/2021 23:27:13 No significant changes I reviewed the tracing and have either agreed or edited the findings inthis report. Electronically Signed On 05-22-2021 11:01:24 EDT by JOHNNIE FERNANDEZ. us Laurnet Chaudhry MD CARDIAC ECG ORDERABLES Pricila suri Result [facility] EKG documented in this encounter Visit Diagnoses Diagnosis Fall, initial encounter- Primary Duodenal ulcer Duodenal ulcer, unspecified as acute or chronic, without hemorrhage, perforation, or obstruction documented in this encounter Administered Medications Inactive Administered Medications - up to 3 most recent administrations Medication Order MAR Action Action Date Dose Rate Site aluminum & magnesium hydroxide-simethicone (MYLANTA-DS) 400-400-40 mg/5 mL suspension 15 mL 15 mL, oral, NOW X1, 1 dose, On Tue05/08/21 at 1715, STAT Given 05/08/2021 17:18 EDT 15 mL HYDROmorphone (PF) (DILAUDID) 0.5 mg/0.5 mL syringe 0.5 mg 0.5 mg, intravenous, NOW X1, 1 dose, On Tue05/08/21 at 1400, STAT Given 05/08/2021 13:54 EDT 0.5 mg HYDROmorphone (PF) (DILAUDID) 0.5 mg/0.5 mL syringe 1 mg 1 mg, intravenous, NOW X1, 1 dose, On Tue05/08/21 at 1515, STAT Given 05/08/2021 15:15 EDT 1 mg iohexoL (OMNIPAQUE 350) solution 100 mL 100 mL, intravenous, Once in imaging, 1 dose, Starting on Tue05/08/21 at 1554, Until Tue05/08/21 at 1616, Routine, Imaging Protocol Orders Given 05/08/2021 16:16 EDT 93 mL lidocaine (XYLOCAINE) 2 % viscous solution 15 mL 15 mL, oral, NOW X1, 1 dose, On Tue05/08/21 at 1715, STAT Given 05/08/2021 17:18 EDT 15 mL ondansetron (PF) (ZOFRAN) injection 4 mg 4 mg, intravenous, NOW X1, 1 dose, On Tue05/08/21 at 1530, STAT Given 05/08/2021 15:35 EDT 4 mg sodium chloride 0.9 % BOLUS 500 mL 500 mL, intravenous, NOW X1, 1 dose, On Tue05/08/21 at 1530, STAT New Bag 05/08/2021 15:36 EDT 500 mL documented in this encounter Discontinued Medications Medication Sig Discontinue Reason Start Date End Da te omeprazole (PRILOSEC) 20 mg capsule Take 1 Cap by mouth daily. Reorder 03/26/2021 05/08/2021 documented as of this encounter Active and Recently Administered Medications Times are shown in EDT. Scheduled Medication Order 05/06/2021 05/07/2021 05/08/2021 aluminum & magnesium hydroxide-simethicone (MYLANTA-DS) 400-400-40 mg/5 mL suspension 15 mL (COMPLETED)(Linked Group 1) 15 mL, oral, NOW X1, 1 dose, On Tue05/08/21 at 1715, STAT 1718 (Given - Provid er: Evaristo Murdock RN) HYDROmorphone (PF) (DILAUDID) 0.5 mg/0.5 mL syringe 0.5 mg (COMPLETED) 0.5 mg, intravenous, NOW X1, 1 dose, On Tue05/08/21 at 1400, STAT 1354 (Given - Provid er: Serene Charles) HYDROmorphone (PF) (DILAUDID) 0.5 mg/0.5 mL syringe 1 mg (COMPLETED) 1 mg, intravenous, NOW X1, 1 dose, On Tue05/08/21 at 1515, STAT 1515 (Given - Provid er: Serene Charles) iohexoL (OMNIPAQUE 350) solution 100 mL (COMPLETED) 100 mL, intravenous, Once in imaging, 1 dose, Starting on Tue05/08/21 at 1554, Until Tue05/08/21 at 1616, Routine, Imaging Protocol Orders 1616 (Given - Provid er: Araceli Portillo) lidocaine (XYLOCAINE) 2 % viscous solution 15 mL (COMPLETED)(Linked Group 1) 15 mL, oral, NOW X1, 1 dose, On Tue05/08/21 at 1715, STAT 1718 (Given - Provid er: Evaristo Murdock RN) ondansetron (PF) (ZOFRAN) injection 4 mg (COMPLETED) 4 mg, intravenous, NOW X1, 1 dose, On Tue05/08/21 at 1530, STAT 1535 (Given - Provid er: Evaristo Murdock RN) sodium chloride 0.9 % BOLUS 500 mL (COMPLETED) 500 mL, intravenous, NOW X1, 1 dose, On Tue05/08/21 at 1530, STAT 1536 (New Bag - Prov ider: Evaristo Murdock, KENN)1813 (Completed - Provider: Valeriy Trevizo RN) Linked Groups Order Group 1: lidocaine (XYLOCAINE) 2 % viscous solution 15 mL (COMPLETED)Jump to med 15 mL, oral, NOW X1, 1 dose, On Tue05/08/21 at 1715, STAT And aluminum & magnesium hydroxide-simethicone (MYLANTA-DS) 400-400-40 mg/5 mL suspension 15 mL (COMPLETED)Jump to med 15 mL, oral, NOW X1, 1 dose, On Tue05/08/21 at 1715, STAT documented in this encounter Care Teams Industrial Designer Relationship Specialty Start Date End Date Emigdio Veronica MD [address] [place] [phone] PCP - General Internal Medicine - Primary Care 05/22/20 02/21/24 documented as of this encounter
--- OUTSIDE RECORDS SUMMARY | 2024-11-22 17:15 | XMS_ITS | Encounter Summary ---
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 30 Syringe 05/15/2021 05/15/2021 documented in this encounter Plan of Treatment Upcoming Encounters Date Type Department Care Team (Late st Contact Info) Description 01/04/2025 13:00 EST Office Visit [facility] Ophthalmology - [address] [phone] Gagandeep Rome MD [address] [place] [address] [address] [place] [phone] 02/11/2025 13:30 EDT Telemedicine [facility] Hematology & Oncology [address] [phone] Dana Padilla MD [address] [place] [address] [address] [place] [phone] documented as of this encounter Visit Diagnoses Not on filedocumented in this encounter Discontinued Medications Medication Sig Discontinue Reason Start Date End Da te enoxaparin (LOVENOX) 40 mg/0.4 mL injection Inject 40 mg into the skin daily for 30 days. Reorder 04/25/2021 05/15/2021 documented as of this encounter Care Teams Interior Design Faculty Member Relationship Specialty Start Date End Date Emigdio Veronica MD [address] [place] [phone] PCP - General Internal Medicine - Primary Care 05/22/20 02/21/24 documented as of this encounter
--- OUTSIDE RECORDS SUMMARY | 2024-11-22 17:15 | XMS_ITS | Encounter Summary ---
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 No / Unsure 04/13/2021 13:03 EDT documented as of this encounter Functional [...] needed for Pain. Daily Max: 4 mg 6 Tab 04/27/2021 04/29/2021 documented in this encounter Miscellaneous Notes * Telephone Encounter - Karol Schultz RN - 04/27/2021 1419 EDT Returned call to patient. She will stop the methocarbamol because of the nausea and start the dilaudid. She will see how the next couple days ago and discuss further at her appointment on Tuesday. * Telephone Encounter - Emigdio Fernandez MD - 04/27/2021 1343 EDT We do have to be very careful with controlled substances and I agree that any prolonged use requires an office visit and controlled substance agreement. But given her worsened portal thrombosis as a likely source of her abdominal pain I am willing to prescribe a 3 day supply of dilaudid at this time. We will follow-up at our next encounter. Please update the patient. * Telephone Encounter - Heike Rosado RN - 04/27/2021 1246 EDT ??admitted for portal vein thrombosis enoxaparin 40 mg daily for an indefinite period, which would be okay to use in early-stage CKD. Her pain and nausea slowly got better over the next two days via supportive therapy, namely ondansetron for nausea and PO dilaudid PRN for pain. On the morning of discharge, she was trained on enoxaparin injections by the nurse before leaving. Recommending follow-up with Dr. Paige after dischargeregarding duration of enoxaparin therapy. ?? Of note, patient has some symptoms of lower extremity claudication. Recommend DEWAYNE studies as an outpatient. ?? Call from pt Methocarbamol for stomach pain makes her more nauseas. Dilaudid which she took inpt worked better; was not discharged with this. Hoping for a refill Got home satuday Also taking since d/c- lovenox ; and zofran which helps with nausea Hospital Discharge Follow Up: Risk Assessment: high 88% Reason for admission: portal vein thrombosis Symptoms improving? yes Discharge instructions available? yes Medications Reviewed/prescriptions filled? yes Support at home? yes Home health service/issues? no - Questions about discharge instructions? yes Follow-up visit scheduled? yes Education/Plan: will see dr fernandez Tuesday for HFU. Can get a ride. [phone]--temporary P# until end of this week. Awaiting new phone Pharmacy--[facility] Hoping for dilaudid jst for a Few days to get her over hump. Did discuss with pt that controlled substances typically can only be filled at office visit. No visit with PCP avail before Tuesday. To dr fernandez to advise HEIKE ROSADO RN 04/27/2021 * Telephone Encounter - Claudine [place] RN - 04/27/2021 1042 EDT Pt needs a HFU call from triage and an HFU visit. Called pts only number is listed in Epic and the voicemail is not set up yet. Unable to leave a message. Triage will try her again at another time. CLAUDINE SANTA RN 04/27/2021 10:46 documented in this encounter Plan of Treatment Upcoming Encounters Date Type Department Care Team (Late st Contact Info) Description 01/04/2025 13:00 EST Office Visit [facility] Ophthalmology - [address] [address] Gagandeep Rome MD [address] [place] [address], [address] [place] [phone] 02/11/2025 13:30 EDT Telemedicine [facility] Cancer Center Hematology & Oncology - [facility] [address] [place] [address] Dana Padilla MD [address] [facility], [address] [place] [phone] documented as of this encounter Visit Diagnoses Not on filedocumented in this encounter Care Teams Art Conservator Relationship Specialty Start Date End Date Emigdio Fernandez MD [address] [place] [phone] PCP - General Internal Medicine - Primary Care 05/22/20 02/21/24 documented as of this encounter
--- OUTSIDE RECORDS SUMMARY | 2024-11-22 17:15 | XMS_ITS | Encounter Summary ---
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 Reviewed message from Dr. Veronica. She will note in patient's profile that next fill will not be done until 05/27/21. Received conflicting information from patient prior to her appointment with Dr. Veronica on 05/14 andthere was concern for not using correctly. Pharmacist believes there may have been incorrect information given. * Telephone Encounter - Emigdio Veronica MD - 05/14/2021 1604 EDT Yes it was intentional. Sorry I probably should have warned the pharmacist. Her original script was for two weeks of dilaudid at 2 mg BID with a plan to taper to dilaudid 2 mgdaily. Given her ongoing pain we agreed to put her back on dilaudid 2 mg BID. I provided an additional script of 14 tablets of dilaudid 2 mg to be added to her current supply allowing her to stay at the dose of 2 mg BID up to 05/27/21 the original end date of the first script. Please update the pharmacy, I am happy to discuss with the pharmacist if their is any lingering confusion. * Telephone Encounter - Heike Mcleod RN - 05/14/2021 1542 EDT Call to pharmacist Kaitlynn States the rx they Received today was for hydromorphone 2 mg tabs States the last rx for this was filled 04/29 for # 42 When they discussed with pt, pt stated she had only a few tabs left today Based on last fill date and directions, even if she continued as 2 tabs per day she would be out on05/20 Advised kaitlynn pt was seen by Dr Veronica and this was likely discussed. Advised message would be sent to dR Veronica to see if she had been using more that 2 tabs a day of medication, and to see if hewas ok with them filling medication today, even though it seems early. * Telephone Encounter - Noemi Hall - 05/14/2021 1521 EDT Reason for Call: Medication Management Summary/Symptoms: Pharmacy has a question about the Dilaudid refill. Looks like she was using more than she was supposed to and is refilling early Was prescribed to take one, twice a day for two weeks and then go to once a day. Doesn't look like she did that but even if she did she should have some left per pharmacy Pateint is calling and saying that she is out of pills. Pharmacy would like to speak directly to nurse or provider before refilling Onset and Duration: na Does the patient have a computer, laptop or smart phone with high speed & video capability? N/A If so, would they be interested in doing a video visit via Zoom? N/A Appointment Offered? No Noemi Hall 05/14/2021 15:26 documented in this encounter Plan of Treatment Upcoming Encounters Date Type Department Care Team (Late st Contact Info) Description 01/04/2025 13:00 EST Office Visit [facility] Ophthalmology - [address] [address] Gagandeep Rome MD [address] [place] [address], [facility] [address] [place] [phone] 02/11/2025 13:30 EDT Telemedicine [facility] Hematology & Oncology [address] [phone] Dana Padilla MD [address] [place] [address], [facility] [address] [place] [phone] documented as of this encounter Visit Diagnoses Not on filedocumented in this encounter Care Teams Cellular Equipment Repairer Relationship Specialty Start Date End Date Emigdio Veronica MD [address] [place] [phone] PCP - General Internal Medicine - Primary Care 05/22/20 02/21/24 documented as of this encounter
--- OUTSIDE RECORDS SUMMARY | 2024-11-22 17:15 | XMS_ITS | Encounter Summary ---
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 Her graphics coordinator's note simply states to follow-up with me on pain medications. She has been on opiates for eight days and is already asking for an increase which is a concerning sign. We have a follow-up next week and will address her pain control then. * Telephone Encounter - Noemi Hall - 05/07/2021 1522 EDT FYI: patient is calling because she states her graphics coordinator is planning on calling you to discuss increasing pain meds She did also want to tell you that she had an appointment with vascular surgery documented in this encounter Plan of Treatment Upcoming Encounters Date Type Department Care Team (Late st Contact Info) Description 01/04/2025 13:00 EST Office Visit [facility] Ophthalmology - [address] [phone] Gagandeep Rome MD [address] [place] [address], [facility] [address] [place] [phone] 02/11/2025 13:30 EDT Telemedicine [facility] Hematology & Oncology [address] [phone] Dana Padilla MD [address] [place] [address], [address] [place] [address] documented as of this encounter Visit Diagnoses Not on filedocumented in this encounter Care Teams Foreign Food Specialty Cook Relationship Specialty Start Date End Date Emigdio Veronica MD [address] [place] [phone] PCP - General Internal Medicine - Primary Care 05/22/20 02/21/24 documented as of this encounter
--- OUTSIDE RECORDS SUMMARY | 2024-11-22 17:15 | XMS_ITS | Encounter Summary ---
Author Organization [facility] Address [address] [place] [address] Care Team Providers Care Overhead Foreman Name Role Phone Emigdio Veronica MD Primary Care Provider + Reason for Referral * Vascular Lab (Routine) - Closed Specialty Diagnoses / Procedures Referred By Contac t Referred To Contact Diagnoses Portal vein thrombosis Procedures US LOWER ARTERIAL DUPLEX Starr Paige MD Phone: tel: fax: Referral ID Status Reason Start Date Expiration Date Visits Re quested Visits Authorized [id number] Closed 05/06/2021 1 1 Reason for Visit * Reason Comments Follow-up * Follow Up (3 - 10 Business Days) - Order Cancelled Specialty Diagnoses / Procedures Referred By Contac t Referred To Contact Hematology and Oncology Diagnoses Pancytopenia (HCC-CMS) Sharon Willett PA-C Phone: tel: fax: [facility] Hematology & Oncology - Main [place] [address] [place] [address] Phone: tel: fax: Referral ID Status Reason Start Date Expiration Date Visits Requested Visits Authorized [id number] Order Cancelled Specialty Services Required 04/13/2021 1 1 Encounter Details Date Type Department Care Team (Late st Contact Info) Description 05/06/2021 16:[address] 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 No / Unsure 05/06/2021 14:04 EDT documented as of this encounter Last Filed Vital Signs Vital Sign Reading Time Taken Comments Blood Pressure 114/57 05/06/2021 1610 EDT Pulse 97 05/06/2021 1610 EDT Temperature 36.1 ??C (96.9 ??F) 05/06/2021 1610 EDT Respiratory Rate 17 05/06/2021 1610 EDT Oxygen Saturation 97% 05/06/2021 1610 EDT Inhaled Oxygen Concentration - - Weight 91.8 kg (202 lb 4.8 oz) 05/06/2021 1610 E DT Height 162.6 cm (5' 4) 05/06/2021 1610 EDT Body Mass Index 34.72 05/06/2021 1610 EDT documented in this encounter Functional Status [...] Progress Notes * Starr Paige MD - 05/06/2021 1600 EDT [facility] HEMATOLOGY AND ONCOLOGY PROGRESS / FOLLOWUP NOTE: 05/06/21 16:14 DIAGNOSIS: Pancytopenia associated with liver cirrhosis [...] encephal opathy is being transferring care from [facility] to [facility] because of relocation. Patient is following Dr. Ijeoma Smith, GI Department in [facility] for long-standing decompensated liver cirrhosis, portal hypertension and hepatic encephalopathy. She was also formerly seen by hematology oncology clinic in [facility], underwent bone marrow biopsy for pancytopenia [...] by Dr. Dickens although then relocated to [place]. Her most recent CBC showed WBC 1.99 [...] longer seeing Dr. Smith in hepatology in [facility]. TIPS and liver transplant listing are on [...] PO dilaudid PRN for pain Interval history: Visit is conducted by telemedicine secondary to COVID19 pandemic and social distancing. She still continues ti experience abdominal pain and was hoping to increase her dilaudid. She is doing lovenox daily and tolerates it well with no bleeding, but ongoing bruising. patient has some symptoms of lower extremity claudication. Recommend DEWAYNE studies as an outpatient. ROS: 10 review of system is completed and is negative, except for the pertinent positives noted above. PAST MEDICAL HISTORY: Past Medical History: Diagnosis Date ??? Anemia ??? Anxiety ??? Asthma 12/10/2020 currently not taking - mild persistent - see dr. Veronica 11/20/2021 ??? Bleeding disorder ([facility]) ??? Bursitis right shoulder ??? C. difficile colitis 07/25/2015 Hospitalized after kidney stone removal ??? Chronic ITP (idiopathic thrombocytopenia) ([facility]) 12/10/2020 - see 11/20/2020 Dr. Veronica H&P, (managed by Starr Piage MD) ??? Chronic kidney disease slow to [...] directed every 4 hours as needed. ??? enoxaparin (LOVENOX) 40 mg/0.4 mL injection Inject 40 mg into the skin daily for 30 days. 30 Syringe 0 ??? furosemide (LASIX) 20 mg tablet Take 1 Tab by mouth daily. 90 Tab 1 ??? HYDROmorphone (DILAUDID) 2 mg tablet Take 1 Tab by mouth every 12 hours as needed for 14 days for Pain, THEN 1 Tab daily as needed for up to 14 days for Pain. Daily Max: 4 mg. 42 Tab 0 ??? levothyroxine (SYNTHROID) 25 mcg tablet Take 1 Tab by mouth daily. Unknown dose (Patient takingdifferently: Take 25 mcg by mouth daily before breakfast. ) 90 Tab 3 ??? magnesium oxide (MAG-OX) 400 mg (241.3 mg magnesium) tablet Take 1 Tab by mouth daily. 200 Tab 3 ??? methocarbamoL (ROBAXIN) 750 mg tablet Take 1 Tab by mouth 3 times daily as needed for Muscle Spasms (abdominal pain). (Patient not taking: Reported on 04/29/2021) 30 Tab 0 ??? omeprazole (PRILOSEC) 20 mg capsule Take 1 Cap by mouth daily. 90 Cap 0 ??? ondansetron (ZOFRAN) 4 mg tablet Take [...] Gatherings with Friends and Family: ??? Attends Mandaeism Services: ??? Active Member of Clubs or Organizations: ??? Attends Club or Organization Meetings: ??? Marital Status: PHYSICAL EXAMINATION: BP 114/57 Pulse 97 Temp 36.1 ??C (96.9 ??F) (Tympanic) Resp 17 Ht 162.6 cm (64) Wt 91.8 kg (202 lb 4.8 oz) SpO2 97% BMI 34.72 kg/m?? Visit is conducted by telemedicine, physical exam was not performed. LABS REVIEWED: Results for TARA YUN ( ) as of 05/06/2021 20:13 Ref. Range 05/06/2021 14:15 WBC Latest Ref Range: 4.00 - 12.40 K/cmm 1.22 (L) RBC Latest Ref Range: 3.86 - 5.04 M/cmm 3.92 Hemoglobin Latest Ref Range: 11.6 - 15.2 gm/dL 11.1 (L) HCT Latest Ref Range: 34.9 - 44.4 % 33.9 (L) MCV Latest Ref Range: 81 - 98 fl 87 MCH Latest Ref Range: 26.7 - 33.3 pg 28.3 MCHC Latest Ref Range: 32.1 - 35.9 gm/dL 32.7 RDW-CV Latest Ref Range: <14.7 % 15.2 (H) RDW-SD Latest Ref Range: <50.4 fl 48.0 PLT Latest Ref Range: 141 - 377 K/cmm 51 (L) MPV Latest Ref Range: 9.5 - 12.7 fl 11.0 Neutrophils Latest Units: % 78.9 Lymphocytes Latest Units: % 7.9 Monocytes Latest Units: % 8.8 Eosinophils Latest Units: % 3.5 Basophils Latest Units: % 0.9 ABS Neutrophils Latest Ref Range: 2.20 - 8.85 K/cmm 0.96 (L) ABS Lymphs Latest Ref Range: 1.09 - 3.30 K/cmm 0.10 (L) ABS Monocytes Latest Ref Range: 0.10 - 0.80 K/cmm 0.11 ABS Eosinophils Latest Ref Range: 0.03 - 0.61 K/cmm 0.04 Absolute Basophils Latest Ref Range: 0.01 - 0.11 K/cmm 0.01 Type of Diff: Unknown Manual Results for TARA YUN ( ) as of 05/06/2021 20:13 Ref. Range 05/06/2021 14:15 Sodium Latest Ref Range: 136 - 145 mEq/L 139 Potassium Latest Ref Range: 3.5 - 5.0 mEq/L 4.3 Chloride Latest Ref Range: 96 - 110 mEq/L 103 CO2 Latest Ref Range: 22 - 32 mEq/L 25 BUN Latest Ref Range: 10 - 26 mg/dL 10 Creatinine Latest Ref Range: 0.52 - 1.04 mg/dL 0.93 Glucose, Serum Latest Ref Range: 70 - 100 mg/dL 97 Calcium Latest Ref Range: 8.5 - 10.5 mg/dL 9.3 Calculated Calcium Latest Ref Range: 8.5 - 10.5 mg/dL 9.6 Magnesium Latest Ref Range: 1.7 - 2.8 mg/dL 1.7 Total Protein Latest Ref Range: 6.3 - 8.2 g/dL 6.4 Albumin Latest Ref Range: 3.4 - 4.9 g/dL 3.6 AST Latest Ref Range: 15 - 46 U/L 24 ALT Latest Ref Range: <35 U/L 15 Bilirubin, Total Latest Ref Range: <1.4 mg/dL <0.5 Total Alkaline Phosphatase Latest Ref Range: 38 - 126 U/L 93 GFR, Calculated Latest Ref Range: >60 mL/min/1.73m2 67 IMAGING REVIEWED: CT abdomen 04-23-2021: IMPRESSION 1. [...] hypersplenism. - Patient was formerly evaluated at [facility] with subsequent bone marrow biopsy that showed no evidenceof clonal population or any maturation defects, her BMBX in April 2019 again confirmed the similar findings - labs reviewed and overall stable. plt count > 50K We will continue to follow expectantly, for the future procedures recommend to have perioperative platelet transfusions if necessary to increase her to the safe levels. Poor response to perioperativeTPO in the past. Chronic non occlusive portal vein thrombosis: - continue on PPX lovenox for at least 3-6 months (if platelets continue to be above 30k), reevaluate with repeated imaging for the extent of the DVT - pain management per PCP: she was hoping to get an increase in her pain medications. Monthly labs 3) Claudication/heavy smoker - will schedule for arterial US of the LE to evaluate further. Plan: Us arterial doppler PA lovenox 40 SC daily Discuss with Dr. Veronica to increase pain meds Labs monthly RTc in 4-6 weeks, TH only Starr Paige Hematology and Oncology I am conducting today's visit by telephone due to the COVID-19 pandemic, and by the recommendationsfr the [facility] to minimize patient exposure and provide social distancing. All patients are offered telemedicine or phone consultation. This consultation has been reviewed by appropriate clinical staff and has been deemed appropriate for a video/phone consultation. The concept of ???Telemedicine?? has been described [...] patient???s medical or mental health care. Patient is at clinic, and I, their MD, am in my private office alone. Visit is conducted via Zoom. I spent a total of __30 minutes on the date of this encounter meeting with the patient and reviewing documentation/coordinating care as described in the above note. All their questions were answered to their satisfaction. The patient agreed with the management plan. documented in this encounter Plan of Treatment Upcoming Encounters Date Type Department Care Team (Late st Contact Info) Description 01/04/2025 13:00 EST Office Visit [facility] Ophthalmology - [address] [phone] Gagandeep Rome MD [address] [place] [address], [facility] [address] [place] [address] 02/11/2025 13:30 EDT Telemedicine [facility] Hematology & Oncology [address] [address] Dana Padilla MD [address] [place] [address], [facility] [address] [place] [phone] documented as of this encounter Results * US LOWER ARTERIAL DUPLEX BILATERAL WITH DEWAYNE (05/22/2021 14:01 EDT) Left CRUSHER SETTER dist sys PSV 75 cm/s MERGE CARDIO Right CRUSHER SETTER dist sys PSV 78 cm/s MERGE CARDIO [...] tobacco use. COPD us Starr Paige MD [facility] ORDERABLES Final Result documented in this encounter Visit Diagnoses Diagnosis Portal vein thrombosis- Primary Portal vein thrombosis documented in this encounter Care Teams Overhead Foreman Relationship Specialty Start Date End Date Emigdio Veronica MD [address] [place] [phone] PCP - General Internal Medicine - Primary Care 05/22/20 02/21/24 documented as of this encounter
--- OUTSIDE RECORDS SUMMARY | 2024-11-22 17:15 | XMS_ITS | Encounter Summary ---
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 Not [...] Info) Description 01/04/2025 13:00 EST Office Visit [facility] Ophthalmology - [address] [phone] Gagandeep Rome MD [address] [place] [address], [facility] [address] [place] [phone] 02/11/2025 13:30 EDT Telemedicine [facility] Hematology & Oncology - [address] [phone] Dana Padilla MD [address] [place] [place] [address] [address] [place] [address] documented as of this encounter Results * COMPREHENSIVE METABOLIC PANEL (ONCOLOGY USE ONLY-INC MG) (05/06/2021 14:15 EDT) Sodium 139 136 - 145 mEq/L 05/06/2021 14:56 T [facility] Potassium 4.3 3.5 - 5.0 mEq/L 05/06/2021 14:56 T [facility] Chloride 103 96 - 110 mEq/L 05/06/2021 14:56 EDT [facility] CO2 Total 25 22 - 32 mEq/L 05/06/2021 14:56 EDT [facility] Glucose 97 70 - 100 mg/dL 05/06/2021 14:56 T [facility] BUN 10 10 - 26 mg/dL 05/06/2021 14:56 T [facility] Creatinine 0.93 0.52 - 1.04 mg/dL 05/06/2021 14:56 T [facility] eGFR 67 >60 mL/min/1.7 3m2 05/06/2021 14:56 [facility] Comment:eGFR calculated lobito coppola CKD-EPI equation for non- Americans. Multiply eGFR by 1.16 for patients. Total Protein 6.4 6.3 - 8.2 g/dL 05/06/2021 14:56 [facility] Albumin 3.6 3.4 - 4.9 g/dL 05/06/2021 14:56 [facility] Alkaline Phosphatase 93 38 - 126 U/L 05/06/2021 14:56 [facility] AST 24 15 - 46 U/L 05/06/2021 14:56 [facility] ALT 15 <35 U/L 05/06/2021 14:56 [facility] Bilirubin, Total <0.5 <1.4 mg/dL 05/06/20 21 14:56 [facility] Calcium 9.3 8.5 - 10.5 mg/dL 05/06/2021 14:56 [facility] Calculated Calcium 9.6 8.5 - 10.5 mg/dL 05/06/2021 14:56 [facility] Magnesium 1.7 1.7 - 2.8 mg/dL 05/06/2021 14:56 [facility] Blood VENOUS BLOOD / Unknown Venipuncture / Unknown 05/06/2021 14:15 EDT 05/06/2021 14:19 EDT Starr Paige MD CHEMISTRY & BLOOD GAS ORDER YANN Final Result [facility] [address] [place] [address] * (ABNORMAL) COMPLETE BLOOD COUNT AND DIFFERENTIAL (05/06/2021 14:15 EDT) WBC 1.22(L) 4.00 - 12.40 K/cmm 05/06/2021 14:35 EDT [facility] RBC 3.92 3.86 - 5.04 M/cmm 05/06/2021 14:35 [facility] Hemoglobin 11.1(L) 11.6 - 15.2 gm/dL 05/06/2021 14:35 [facility] HCT 33.9(L) 34.9 - 44.4 % 05/06/2021 14:35 [facility] MCV 87 81 - 98 fl 05/06/2021 14:35 [facility] MCH 28.3 26.7 - 33.3 pg 05/06/2021 14:35 [facility] MCHC 32.7 32.1 - 35.9 gm/dL 05/06/2021 14:35 [facility] RDW-CV 15.2(H) <14.7 % 05/06/2021 14:35 [facility] RDW-SD 48.0 <50.4 fl 05/06/2021 14:35 [facility] PLT 51(L) 141 - 377 K/cmm 05/06/2021 14:35 [facility] MPV 11.0 9.5 - 12.7 fl 05/06/2021 14:35 [facility] Type of Differential: Manual 05/06/2021 14:35 [facility] Blood VENOUS BLOOD / Unknown Venipuncture / Unknown 05/06/2021 14:15 EDT 05/06/2021 14:19 EDT us Starr Paige MD PACKAGES & DNA PROBE ORDERA BLES Final Result [facility] [address] [place] [address] documented in this encounter Visit Diagnoses Diagnosis Portal vein thrombosis- Primary documented in this encounter Care Teams Quality Assurance Assistant Relationship Specialty Start Date End Date Emigdio Veronica MD [address] [place] [phone] PCP - General Internal Medicine - Primary Care 05/22/20 02/21/24 documented as of this encounter
--- OUTSIDE RECORDS SUMMARY | 2024-11-22 17:15 | XMS_ITS | Encounter Summary ---
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 Would like the nurse to know. Nurse C documented in this encounter Plan of Treatment Upcoming Encounters Date Type Department Care Team (Late st Contact Info) Description 01/04/2025 13:00 EST Office Visit [facility] Ophthalmology - [address] [phone] Gagandeep Rome MD [address] [place] [address] [address] [place] [phone] 02/11/2025 13:30 EDT Telemedicine [facility] Hematology & Oncology [address] [phone] Dana Padilla MD [address] [place] [address] [address] [place] [phone] documented as of this encounter Visit Diagnoses Not on filedocumented in this encounter Additional Health Concerns Infection Onset Date Last Indicated Resolved Time R/O COVID-19 06/12/2021 06/12/2021 06/12/2021 23:4 3 EDT R/O COVID-19 07/10/2021 07/14/2021 07/14/2021 23:3 2 EDT documented as of this encounter Care Teams Sewing Machine Operator Plastic Zipper Relationship Specialty Start Date End Date Emigdio Veronica MD [address] [place] [phone] PCP - General Internal Medicine - Primary Care 05/22/20 02/21/24 documented as of this encounter
--- OUTSIDE RECORDS SUMMARY | 2024-11-22 17:16 | XMS_ITS | Encounter Summary ---
Author Organization [facility] Address [address] [place] [address] Care Team Providers Care Optical Engineering Technician Name Role Phone Emigdio Veronica MD Primary Care Provider + Reason for Visit * Reason Comments Other Encounter Details Date Type Department Care Team (Late st Contact Info) Description 04/03/[address] 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 Answer Date of Assessment Author No 12/17/2020 17:00 Jeet Black RN * Are you blind or do you have serious difficulty seeing, even when wearing glasses? Answer Date of Assessment Author No 12/17/2020 17:00 Jeet Black RN * Do you have serious difficulty walking or climbing stairs? (5 years old or older) Answer Date of Assessment Author No 12/17/2020 17:00 Jeet Black RN * Do you have difficulty dressing or bathing? (5 years old or older) Answer Date of Assessment Author No 12/17/2020 17:00 Jeet Black RN * Because of a physical, mental, or emotional condition, do you have difficulty doing errands alone such as visiting a doctor's office or shopping? (15 years old or older) Answer Date of Assessment Author No 12/17/2020 17:00 Jeet Black RN documented as of this encounter Mental Status * Because of a physical, mental, or emotional condition, do you have serious difficulty concentrating, remembering, or making decisions? (5 years old or older) Answer Entry Date Author No 12/17/2020 17:00 Jeet Black RN documented in this encounter Miscellaneous Notes * Telephone Encounter - Karol Schultz RN - 04/03/2021 1414 EDT [facility] sent to patient to confirm dose change is effective. * Telephone Encounter - Karol Schultz RN - 04/03/2021 1412 EDT Requested Prescriptions Pending Prescriptions Disp Refills ??? sertraline (ZOLOFT) 50 mg tablet [Pharmacy Med Name: SERTRALINE HCL 50 MG TABLET] 30 Tab 0 Sig: TAKE 1 TABLET BY MOUTH EVERY DAY [facility]/pharmacy #[id number] Confirmed Pharmacy? [facility] Request Patient out of medication? Unknown Last Refill Date: 03/06/21 Refills left? (explain exceptions requiring early refill) No Recent Visits Date Type Provider Dept 03/06/21 Office Visit Emigdio Veronica MD [place] [facility] 01/27/21 Office Visit Dom Mackay MD [place] [facility] 11/20/20 Office Visit Emigdio Veronica MD [place] [facility] 10/15/20 Office Visit Emigdio Veronica MD [place] [facility] 10/10/20 Office Visit Scottie Campuzano PA-C [place] [facility] 09/05/20 Office Visit Emigdio Veronica MD [place] [facility] 08/22/20 Office Visit Emigdio Veronica MD [place] [facility] 08/01/20 Office Visit Emigdio Veronica MD [place] [facility] 06/23/20 Office Visit Emigdio Veronica MD [place] [facility] 05/29/20 Office Visit Emigdio Veronica MD [place] [facility] Showing recent visits within past 540 days with a meds authorizing provider and meeting all other requirements Future Appointments Date Type Provider Dept 04/10/21 Appointment Emigdio Veronica MD [place] [facility] [place] [facility] Showing future appointments within next 150 days with a meds authorizing provider and meeting all other requirements Future appointment: Already Scheduled KAROL SCHULTZ RN 04/03/2021 14:12 documented in this encounter Plan of Treatment Upcoming Encounters Date Type Department Care Team (Late st Contact Info) Description 01/04/2025 13:[address] [facility] Ophthalmology - [address] [phone] Gagandeep Rome MD [address] [place] [address], [facility] [address] [place] [phone] 02/11/2025 13:30 EDT Telemedicine [facility] Hematology & Oncology [address] [phone] Dana Padilla MD [address] [place] [address], [facility] [address] [place] [phone] documented as of this encounter Visit Diagnoses Not on filedocumented in this encounter Additional Health Concerns Infection Onset Date Last Indicated Resolved Time R/O COVID-19 Comment:Covid negative 04/13/2021 04/13/2021 04/13/2021 17:49 EDT documented as of this encounter Care Teams Optical Engineering Technician Relationship Specialty Start Date End Date Emigdio Veronica MD [address] [place] [phone] PCP - General Internal Medicine - Primary Care 05/22/20 02/21/24 documented as of this encounter
--- OUTSIDE RECORDS SUMMARY | 2024-11-22 17:16 | XMS_ITS | Encounter Summary ---
Author Organization [facility] Address [address] [place] [address] Care Team Providers Care Vice President Quality Name Role Phone Emigdio Veronica MD Primary Care Provider + Reason for Visit * Reason Comments Post-ED Follow Up bronchitis;pancytope jon Encounter Details Date Type Department Care Team (Late st Contact Info) Description 04/16/2021 13:45 EDT Office Visit 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 No / Unsure 04/13/2021 13:03 EDT documented as of this encounter Last Filed Vital Signs Vital Sign Reading Time Taken Comments Blood Pressure 98/66 04/16/2021 1352 EDT Pulse 68 04/16/2021 1352 EDT r Temperature 36.5 ??C (97.7 ??F) 04/16/2021 1352 EDT Respiratory Rate 16 04/16/2021 1352 EDT Oxygen Saturation - - Inhaled Oxygen Concentration - - Weight 90.3 kg (199 lb) 04/16/2021 1352 EDT Height - - Body Mass Index 34.16 03/26/2021 0952 EDT documented in this encounter Functional Status [...] Jeet Black RN documented in this encounter Ordered Prescriptions Prescription Sig Dispense Quantity Refills Last Filled Start Date End Date spironolactone (ALDACTONE) 50 mg tablet Take 1 Tab by mouth daily. 30 Tab 1 04/16/2021 06/15/2021 documented in this encounter Progress Notes * Emigdio Veronica MD - 04/16/2021 1345 EDT Tara Yun is a 60 y.o. female with a PMHx of NAFLD PRIMARY CARE PROVIDER: Emigdio Veronica CHIEF COMPLAINT: Chief Complaint Patient presents with ??? Post-ED Follow Up bronchitis;pancytopenia SUBJECTIVE: Tara Yun presents today for an acute visit for ED follow-up. She presented back to [facility] ED on 04/13/21 for worsening symptoms of SOB and cough. An x-ray was obtained that was ultimately unremarkable for evidence of an acute process. She was ultimately diagnosed with acute bronchitis and prescribed a five day z-pack. She is noting significant improvement on her azithromycin in regards her cough and SOB, but we did discuss that her recent blood work obtained at [facility] ED was notable for thepresence of pancytopenia with a white count of 1.8 in addition to her chronic anemia and thrombocytopenia. We reviewed that her white count was this low before in [id number], but it discussed the potential risk for immunocompromise if her counts drop lower. She is scheduled to follow-up with her manager lean in August. Her only new medication has been metronidazole for a trichomonas infection. She confirms nearly completing the course, but not tolerating the metronidazole well due to nausea. She reports her vaginaldischarge has resolved. Hr ER blood work was also concerning for a persistent elevation in her creatinine. Tara busby also received contrast from a CT chest angiram study obtained to rule out PE. We discussed the risks of chronic kidney injury and agreed to adjust her diuretic dosage today. ROS as above Medications and history reviewed. Current Outpatient Medications Medication ??? albuterol (ACCUNEB) 2.5 mg /3 mL (0.083 %) nebulizer solution ??? albuterol 90 mcg/actuation inhaler ??? albuterol 90 mcg/actuation inhaler ??? ERGOCALCIFEROL, VITAMIN D2, (VITAMIN D ORAL) ??? ferrous gluconate (FERGON) 324 mg (38 mg iron) tablet ??? furosemide (LASIX) 20 mg tablet ??? gabapentin (NEURONTIN) 300 mg capsule ??? levothyroxine (SYNTHROID) 25 mcg tablet ??? magnesium oxide (MAG-OX) 400 mg (241.3 mg magnesium) tablet ??? omeprazole (PRILOSEC) 20 mg capsule [...] mL (0.083 %) nebulizer solution OBJECTIVE: BP 98/66 (BP Cuff Location: Left arm, BP Patient Position: Sitting, BP Cuff Sizes: Adult, regular) Pulse 68 Comment: r Temp 36.5 ??C (97.7 ??F) (Temporal) Resp 16 Wt 90.3 kg (199 lb) BMI 34.16 kg/m?? Gen: Well appearing middle aged female, NAD HEENT: EOMI, PERRL, oropharynx moist, conjunctiva pink, no scleral injection/ icterus Extrem: no edema, warm and well perfused Skin: No rashes or erythema, intact Musk: Normal muscle tone and bulk, gait within normal limits, full ROM of spine Neuro: A&Ox3 Recent Labs/Imaging: Reviewed in [facility] ASSESSMENT and PLAN: Tara was seen today for post-ed follow up. Diagnoses and all orders for this visit: Pancytopenia ([facility]): Drop in WBC seen previously in patient, however is concerning for potentialimmunocompromise. Discussed possible etiologies of the drop in white cells including recent infection. One possibility is medication side effect from metronidazole though this is rare. - Repeat COMPLETE BLOOD COUNT AND DIFFERENTIAL; Future in one week - Continue azithromycin - Stop metronidazole Elevated serum creatinine: Unclear if MUSA vs CKD in setting of continued diuretic use and recent contrast use for imaging - Repeat BASIC METABOLIC PANEL (BMP); Future in one week - Will reduce lasix to 20 mg daily and spirolactone to 50 mg daily Vaginal trichomoniasis: Likely resolved with six days of treatment and resolution of vaginal discharge - Stop metronidazole as above - Will continue to monitor F/u: As scheduled Emigdio Veronica MD 04/18/2021 14:24 documented in this encounter Plan of Treatment Upcoming Encounters Date Type Department Care Team (Late st Contact Info) Description 01/04/2025 13:00 EST Office Visit [facility] Ophthalmology - [address] [address] Gagandeep Rome MD [address] [place] [address], [facility] [address] [place] [address] 02/11/2025 13:30 EDT Telemedicine [facility] Hematology & Oncology - [address] [phone] Dana Padilla MD [address] [place] [address], [facility] [address] [place] [address] documented as of this encounter Visit Diagnoses Diagnosis Pancytopenia ([facility])- Primary Other pancytopenia Elevated serum creatinine Other nonspecific findings on examination of blood Vaginal trichomoniasis Trichomonal vulvovaginitis Bronchitis Bronchitis, not specified as acute or chronic documented in this encounter Discontinued Medications Medication Sig Discontinue Reason Start Date End Da te metroNIDAZOLE (FLAGYL) 500 mg tablet Take 1 Tab by mouth 2 times daily. Side effects 04/10/2021 04/16/2021 spironolactone (ALDACTONE) 100 mg tablet Take 1 Tab by mouth daily. Reorder 03/06/2021 04/16/2021 documented as of this encounter Orders Lab Orders Without Results Count Last Ordered D ate First Ordered Date BASIC METABOLIC PANEL (BMP) 1 04/16/2021 COMPLETE BLOOD COUNT AND DIFFERENTIAL 1 documented in this encounter Care Teams Vice President Quality Relationship Specialty Start Date End Date Emigdio Veronica MD [address] [place] [address] PCP - General Internal Medicine - Primary Care 05/22/20 02/21/24 documented as of this encounter
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
--- OUTSIDE RECORDS SUMMARY | 2024-11-22 17:16 | XMS_ITS | Encounter Summary ---
Author Organization [facility] Address [address] [place] [address] Care Team Providers Care Rug Setter Velvet Name Role Phone Emigdio Fernandez MD Primary Care Provider + Reason for Visit * Reason Onset Date Comments Shortness of Breath 04/13/2021 Medication Management 04/13/2021 Urinary Tract Infection 04/13/2021 Encounter Details Date Type Department Care Team (Late st Contact Info) Description 04/13/2021 Telephone [facility] Adult Primary Care - [place] [address] [place] [address] Emigdio Fernandez MD [address] [place] [address] Shortness of Breath; Medication Management; Urinary Tract Infection Social History Tobacco Use Types Packs/Day Years [...] 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 No / Unsure 04/08/2021 7:17 EDT documented as of this encounter Functional [...] Telephone Encounter - Heike Mcleod RN - 04/13/2021 1148 EDT Call to pt Advised of message from dr fernandez Pt sounding worse currently than earlier Pt having more SOB. States current temp 102 Advised to go to ER Will be able to get a ride early afternoon Advised if sx worsen before ride gets there to call ambulance The patient indicates understanding of these issues and agrees with the plan. Spoke with junior in ER triage Aware of above information * Telephone Encounter - Emigdio Fernandez MD - 04/13/2021 1115 EDT Agree with CXR, OV and ED presentation if symptoms worsen. Given fever, cough and SOB would also recommend COVID-19 testing prior to our OV. * Telephone Encounter - Heike Mcleod RN - 04/13/2021 0935 EDT Call to pt Saw dr fernandez Tuesday for UTI visit. Breathing worse since Tuesday Taking abx for uti States over wkend breathing worsening No appetite. Has been drinking fluids All she has done all weekend is sleep U/a was done on 04/[address] fernandez was on 04/10 Bringing up a lot of sputum from chest. Achy. Took temp Tuesday and was 100.3, then got it down and has not been that high since. Coughing a lot. Last night was up most of night, tossing and turning. Not taking anything for cough. Not supposed to take ASA or tyl. SOB with movement. A little when lays down. When gets up to move. Is wheezing and using her inhalers. Has been pushing fluids Eating soup Still achy and having chills States at night sometimes swelling in feet is there but usually gone by morning States she is getting over PNA. Was dx week before 02/12 and had gone to [facility]. Has moved to [place] from [facility] Wondering if CXR should be ordered? Pended please review Scheduled visit for with dr fernandez for f/u(no appts left today or tomorrow). As pt cannotdo video visit,and clinic is no longer doing phone visits, pt scheduled as an in person visit. Advised if SOB worsens, advised to go to [facility] ER The patient indicates understanding of these issues and agrees with the plan. To dr fernandez * Telephone Encounter - Noemi Hall - 04/13/2021 0907 EDT Reason for Call: Shortness of Breath, Medication Management, and Urinary Tract Infection Summary/Symptoms: saw Dr Fernandez last week for UTI and to go over blood work. Started her on antibiotics for UTI but patient states he sad may help with chest congestion. patient also has a lot of chest congestion and bringing up nasty stuff. Patient states all she has done is sleep since Tuesday.Antibiotics aren't doing anything. Patient states she is also just getting over pneumonia. Patient states she has copd but the shortness of breath is worse than normal. Onset and Duration: since last week Does the patient have a computer, laptop or smart phone with high speed & video capability? N/A If so, would they be interested in doing a video visit via Zoom? N/A Appointment Offered? No Noemi Hall 04/13/2021 9:08 documented in this encounter Plan of Treatment Upcoming Encounters Date Type Department Care Team (Late st Contact Info) Description 01/04/2025 13:00 EST Office Visit [facility] Ophthalmology - [address] [phone] Gagandeep Rome MD [address] [facility], [facility] [address] [place] [phone] 02/11/2025 13:30 EDT Telemedicine [facility] Hematology & Oncology - [address] [phone] Dana Padilla MD [address] [facility], [facility] [address] [place] [phone] documented as of this encounter Visit Diagnoses Diagnosis Pneumonia of left lower lobe due to infectious organism- Primary SOB (shortness of breath) Shortness of breath Fever, unspecified fever cause Cough documented in this encounter Care Teams Rug Setter Velvet Relationship Specialty Start Date End Date Emigdio Fernandez MD [address] [place] [phone] PCP - General Internal Medicine - Primary Care 05/22/20 02/21/24 documented as of this encounter
--- OUTSIDE RECORDS SUMMARY | 2024-11-22 17:16 | XMS_ITS | Encounter Summary ---
Author Organization [facility] Address [address] [place] [address] Care Team Providers Care Legal Transcriber Name Role Phone Emigdio Veronica MD Primary Care Provider + Encounter Details Date Type Department Care Team (Late st Contact Info) Description 03/26/2021 10:22 EDT Anesthesia Event [facility] Endoscopy - Main [address] [address] Tremaine Mathew MD 111 [facility], [address] [place] [address] Anesthesia Record Procedure Summary Procedure Name Responsible Anesthesiologist Anesthesia Start Time Anesthesia Stop Time UPPER ENDOSCOPY (EGD) Tremaine Mathew MD 03/26/21 1022 03/26/21 1039 Events Date Time Event Comment 03/26/2021 1022 An Start The patient was re-evaluated immediately before moderate or deep sedation use, before anesthesia induction, or before the anesthesia procedure. 1022 An Start Data 1022 Anesthesia Ready 1038 Wilder Pt transported to PACU w/ 3L O2 via nasal cannula. VSS 1038 an stop data 1039 Handoff to RN I completed my handoff to the receiving nurse during which we: 1. Identified the patient 2. Identified the responsible provider 3. Reviewed the pertinent medical history 4. Discussed the surgical course 5. Reviewed intra-op anesthesia management and issues during anesthesia 6. Set expectations for post-procedure period 7. Allowed opportunity for questions and acknowledgement of understanding. 1039 An Stop Meds Name Total propOFol (DIPRIVAN) injection 200 mg lactated ringers (LR) infusion 200 mL * Agents Name O2 * Blood No blood administrations on file. 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 Complete vitals history is available in the [facility]. Vitals Value Taken Time BP 140/70 03/26/21 1040 Temp 03/26/21 1040 Resp 16 03/26/21 1040 Pulse From Oximetry 89 BPM 03/26/21 1038 SpO2 96 03/26/21 1040 Last Pain Score - Numeric Pain Level (Scale 1-10): 5 Type of Anesthesia - MAC Anesthesia Post [...] anesthesia complications * Anesthesia Preprocedure Evaluation - Tremaine Mathew MD - 03/26/2021 1003 EDT Anesthesia Preprocedure Evaluation Patient Medical History, including Anesthesia History reviewed. Chart and Nursing Notes reviewed, including NPO status and Medication History. Additional ROS/History Findings: From prior note: 60 y.o. white female with past medical history of asthma, hyperlipidemia, GERD, history of nonalcoholic fatty liver disease, history of hepatitis C as well as known decompensated liver cirrhosis withportal hypertension, severe hepatosplenomegaly as well as history of hepatic encephalopathy presenting for EGD. 2L NC O2 at night. Allergies Allergen Reactions ??? Morphine Anaphylaxis ??? Sulfa (Sulfonamide Antibiotics) Anaphylaxis ??? Tylenol [Acetaminophen] Other (See Comments) Contraindication with medical hx ??? Aspirin Other (See Comments) Contraindication with medical hx ??? Injectafer [Ferric Carboxymaltose] ??? Lyrica [Pregabalin] Anxiety Insomnia ??? Reglan [Metoclopramide Hcl] Rash Review of Systems Constitutional: Negative for fever. HENT: Negative for sore throat. Respiratory: Negative for shortness of breath. Cardiovascular: Negative for chest pain and leg swelling. Gastrointestinal: Positive for abdominal pain, constipation and nausea. Negative for heartburn and vomiting. Neurological: Negative for seizures. Past Medical History: Diagnosis Date ??? Anemia [...] Per Dr Amelia Tijerina and notes from [facility] patient misconstrued information to several providers about [...] (+) COPD (chronic obstructive pulmonary disease) (HCC-CMS) (+) Dyspnea (+) Mild persistent asthma without complication (+) HUEY (obstructive sleep apnea) CARDIOVASCULAR (+) Splenic vein thrombosis /Renal (+) Cirrhosis of liver (HCC-CMS) (+) Nephrolithiasis ENDO/GI (+) Hypothyroidism Other (+) Hypersplenism syndrome (+) Splenic vein thrombosis Physical Exam Airway Mallampati: II Cardiovascular Rhythm: regular Rate: normal Dental Comments: Poor dentition. Pulmonary - normal exam Abdominal Anesthesia Plan ASA 2 Anesthesia Type - MAC, to include intravenous induction. Anesthesia plan and risks discussed. Informed consent obtained from patient. Specific risks discussed were bleeding, blindness, dental injury, headache, nausea, vomiting, myocardial infarction, infection, stroke, post-op intubation, nerve damage, ICU placement and . PAT Note (Notes from 02/24/21 through 03/26/21) No notes of this type exist for this encounter. documented in this encounter Plan of Treatment Upcoming Encounters Date Type Department Care Team (Late st Contact Info) Description 01/04/2025 13:00 EST Office Visit [facility] Ophthalmology - [address] [phone] Gagandeep Rome MD [address] [place] [address] [address] [place] [phone] 02/11/2025 13:30 EDT Telemedicine [facility] Hematology & Oncology [address] [phone] Dana Padilla MD [address] [place] [address] 2 [place] [phone] documented as of this encounter Visit Diagnoses Not on filedocumented in this encounter Administered Medications Inactive Administered Medications - up to 3 most recent administrations Medication Order MAR Action Action Date Dose Rate Site lactated ringers (LR) infusion 30 mL/hr, intravenous, PRN, Starting on Kirsten 03/26/21 at 0950, Until 03/29/21 at 0202, Routine, Preprocedure Continued by Anesthesia 03/26/2021 10:22 EDT New Bag 03/26/2021 9:58 EDT 30 mL/hr 30 mL/hr propOFol (DIPRIVAN) injection PRN, Starting on Kirsten 03/26/21 at 1027, Until Kirsten 03/26/21 at 1039, Routine, Anesthesia Intraprocedure Given 03/26/2021 10:35 EDT 40 mg Given 03/26/2021 10:33 EDT 20 mg Given 03/26/2021 10:31 EDT 40 mg documented in this encounter Care Teams Legal Transcriber Relationship Specialty Start Date End Date Emigdio Veronica MD [address] [place] [address] PCP - General Internal Medicine - Primary Care 05/22/20 02/21/24 documented as of this encounter
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
--- OUTSIDE RECORDS SUMMARY | 2024-11-22 17:16 | XMS_ITS | Encounter Summary ---
Author Organization [facility] Address [address] [place] [address] Care Team Providers Care Grade School Teacher Name Role Phone Emigdio Veronica MD Primary Care Provider + Reason for Visit * Reason Onset Date Comments Constipation 03/27/2021 for 1 week Abdominal Pain 03/27/2021 Encounter Details Date Type Department Care Team (Late st Contact Info) Description 03/27/2021 Telephone [facility] Adult Primary Care - [place] [address] [place] [address] Emigdio Veronica MD [address] [place] [phone] Constipation (for 1 week); Abdominal Pain Social History Tobacco Use Types Packs/Day [...] 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 The patient indicates understanding of these issues and agrees with the plan. No barriers. Gave number to weekend clinic and reviewed additional relief can happen with walking, laying on left side with heating pad on abdomen. * Telephone Encounter - Emigdio Veronica MD - 03/27/2021 1525 EDT She is likely taking way too much miralax. She should stick to two packets or caps daily. As for next steps in her constipation she should try another enema if that's what she has on hand. If that is unsuccessful she could try oral magnesium citrate which is over the counter. Right now it sounds like she is passing flatus and is stable, but if her discomfort worsens, if sheunable to adequately hydrate herself or eat this weekend due to her constipation she should presentto the ED * Telephone Encounter - Karol Hoff RN - 03/27/2021 1451 EDT Spoke to patient who reports last BM was 03/20. She has tried Dulcolax, Miralax a lot, Exlax, suppositories and a Fleets Enema without any results. Takes 0-4 caps of Miralax daily baseline, starting Tuesday she upped to 8-12 capfuls daily, Tried 2 enemas on Tuesday and a suppository last evening. Is still passing a small amount of flatus. Denies any flank/kidney pain, no those are behaving. S he had an upper GI yesterday with Dr Moseley and she mentioned the constipation to him, but he advised to contact PCP's office. Patient has a history of small bowel obstruction in Nov 2019. Patient really doesn't want to go to the ED again and states she couldn't get a ride until tomorrow. Her pharmacist could drop off a medication if one was ordered, or should she try another enema? Recommendation? * Telephone Encounter - Xuan Jimenez - 03/27/2021 1305 EDT Reason for Call: Constipation (for 1 week) and Abdominal Pain Summary/Symptoms: Patient reports she has been constipated for the past 7 days she has tried everything to help her go and now she has extreme abdominal pain to the point where she is doubled over. Onset and Duration: 7 days Does the patient have a computer, laptop or smart phone with high speed & video capability? No If so, would they be interested in doing a video visit via Zoom? No Appointment Offered? No Xuan Jimenez 03/27/2021 13:08 documented in this encounter Plan of Treatment Upcoming Encounters Date Type Department Care Team (Late st Contact Info) Description 01/04/2025 13:00 EST Office Visit [facility] Ophthalmology - [address] [phone] Gagandeep Rome MD [address] [place] [address], [facility] [address] [place] [phone] 02/11/2025 13:30 EDT Telemedicine [facility] Hematology & Oncology [address] [address] Dana Padilla MD [address] [place] [address], [address] [place] [phone] documented as of this encounter Visit Diagnoses Not on filedocumented in this encounter Care Teams Grade School Teacher Relationship Specialty Start Date End Date Emigdio Veronica MD [address] [place] [phone] PCP - General Internal Medicine - Primary Care 05/22/20 02/21/24 documented as of this encounter
--- OUTSIDE RECORDS SUMMARY | 2024-11-22 17:16 | XMS_ITS | Encounter Summary ---
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 on file Not o n file documented as of this encounter Last Filed Vital Signs Vital Sign Reading Time Taken Comments Blood Pressure - - Pulse - - Temperature - - Respiratory Rate - - Oxygen Saturation - - Inhaled Oxygen Concentration - - Weight 90.7 kg (200 lb) 03/19/2021 1346 EDT Height 162.6 cm (5' 4) 03/19/2021 1346 EDT Body Mass Index 34.33 03/19/2021 1346 EDT documented in this encounter Functional Status [...] Jeet Black RN documented in this encounter Medications at Time of Discharge OXYGEN-AIR DELIVERY SYSTEMS MISCIndications: 2 L @ night via nC 2 L by misc (non-drug; combo route) route at bedtime. albuterol (ACCUNEB) 2.5 mg /3 mL (0.083 %) nebulizer solution USE 1 VIAL VIA NEBULIZER 4 TIMES A DAY NEEDED 05/07/2020 1 albuterol 90 mcg/actuation inhaler Inhale 2 Puffs as directed every 4 hours as needed. 1 docusate sodium (COLACE) 100 mg capsule TAKE 1 CAPSULE BY MOUTH TWICE A DAY 60 Cap 11 09/01/2020 1 ERGOCALCIFEROL, VITAMIN D2, (VITAMIN D ORAL) Take by mouth. 1 ferrous gluconate (FERGON) 324 mg (38 mg iron) tablet Take 324 mg by mouth daily with breakfast. 1 furosemide (LASIX) 20 mg tablet Take 1 Tab by mouth daily. 30 Tab 1 01/21/2021 1 levothyroxine (SYNTHROID) 25 mcg tablet Take 1 Tab by mouth daily. Unknown dose 90 Tab 3 11/03/2020 1 magnesium oxide (MAG-OX) 400 mg (241.3 mg magnesium) tablet Take 1 Tab by mouth daily. 200 Tab 3 12/15/2020 1 ondansetron (ZOFRAN) 4 mg tablet Take 1 Tab by mouth 2 times daily as needed for Nausea. 60 Tab 3 11/20/2020 1 sertraline (ZOLOFT) 50 mg tablet Take 1 Tab by mouth daily. 30 Tab 03/06/2021 1 spironolactone (ALDACTONE) 100 mg tablet Take 1 Tab by mouth daily. 90 Tab 3 03/06/2021 1 SYMBICORT 160-4.5 mcg/actuation HFA aerosol inhaler inhalerIndicatio ns:COPD with asthma ([facility]) Inhale 2 Puffs as directed daily. 1 Inhaler 11 06/20/2020 1 traZODone (DESYREL) 100 mg tablet Take 1.5 tablets (150 mg) by mouth at HS as needed. 135 Tab 1 02/27/2021 1 documented as of this encounter Discharge Disposition Disposition Code Departure Means Destination Home or Self Care documented in this encounter Progress Notes * Terra Camara, RN - 03/19/2021 1340 EDT COVID 19 Screening Perioperative at time of PAT Please document by exception (only check those that apply). Have you had any of the following symptoms recently? Yes Chronic ? Cough Shortness of breath or difficulty breathing x Fever Chills Fatigue x Muscle or body aches Severe Headache New [...] who has been diagnosed with Covid 19? no (close contact, within 6 feet of any person known to have Coronavirus in the past 14 days) If past COVID + test results in chart: ??? Complete call, Place for Anesthesia Review ??? Do not give COVID+ DOS arrival instructions unless anes review deems necessary Negative COVID screen: Please file negative COVID screening under a progress note Negative screening is no symptoms or patient reporting a chronic symptom that does not need an anesthesia review Positive COVID screen: Patient answers yes to the question(s) and it is not a chronic symptom RN to flag this chart for anesthesia review and complete call Please file positive COVID screening under a PAT note If patient develops any of these symptoms between now and their surgery date instruct them to call us back at [phone] to report symptoms (If patient is in Surgical Admissions and answers yes, please notify Surgery and Anesthesia team). Follow proper precautions- yellow mask to patient/family. Visitor Policy: -Surgical/Procedural Patients: ??? 1 healthy support person for patients arriving for any procedure requiring sedation, vaccine not required ??? Pediatrics: PreOp may allow 2 parents/guardians, PACU may allow 1 parent/guardians -Inpatient Adult: ??? 1 healthy, vaccinated (fully vaccinated, 2 weeks post vaccination) support person per day, 5am-9pm ??? No visitors permitted if patient is COVID+ or PUI ??? Patients with communication needs (i.e., persons who are deaf or who do not understand/speak French) or a cognitive impairment are permitted 1 healthy support person per day regardless of vaccination status. ??? No overnight visitors, other than for limited exceptions, such as patients with communication or other special needs (such as for those patients who are deaf or who do not understand or speak French and those with cognitive impairments). -Inpatient Pediatrics: ??? 2 healthy parents/guardians: 5am- 9 pm ??? 1 healthy parent/guardian permitted overnight: 9pm- 5am documented in this encounter OR Notes * Preprocedure Instructions - Terra Camara RN - 03/19/2021 1340 EDT Susanricardo Camacho Yun has been instructed as follows regarding medication administration for the day of the scheduled procedure. Date of Surgery: 03/26/21 Instructions for Taking Medications Day of Surgery Medication Sig Last Dose Hold DOS Take DOS albuterol (ACCUNEB) 2.5 mg /3 mL (0.083 %) nebulizer solution USE 1 VIAL VIA NEBULIZER 4 TIMES A DAY NEEDED prn albuterol 90 mcg/actuation inhaler Inhale 2 Puffs as directed every 4 hours as needed. prn docusate sodium (COLACE) 100 mg capsule TAKE 1 CAPSULE BY MOUTH TWICE A DAY Patient not taking: Reported on 03/06/2021 x ERGOCALCIFEROL, VITAMIN D2, (VITAMIN D ORAL) Take by mouth. xnot taking currently ferrous gluconate (FERGON) 324 mg (38 mg iron) tablet Take 324 mg by mouth daily with breakfast. xnot taking currently furosemide (LASIX) 20 mg tablet Take 1 Tab by mouth daily. x levothyroxine (SYNTHROID) 25 mcg tablet Take 1 Tab by mouth daily. Unknown dose Patient taking differently: Take 25 mcg by mouth daily before breakfast. x magnesium oxide (MAG-OX) 400 mg (241.3 mg magnesium) tablet Take 1 Tab by mouth daily. Patient not taking: Reported on 03/12/2021 xnot taking currently ondansetron (ZOFRAN) 4 mg tablet Take 1 Tab by mouth 2 times daily as needed for Nausea. prn OXYGEN-AIR DELIVERY SYSTEMS MISC 2 L by misc (non-drug; combo route) route at bedtime. sertraline (ZOLOFT) 50 mg tablet Take 1 Tab by mouth daily. x spironolactone (ALDACTONE) 100 mg tablet Take 1 Tab by mouth daily. x SYMBICORT 160-4.5 mcg/actuation HFA aerosol inhaler inhaler Inhale 2 Puffs as directed daily. Patient taking differently: Inhale 2 Puffs as directed daily before breakfast. x traZODone (DESYREL) 100 mg tablet Take 1.5 tablets (150 mg) by mouth at HS as needed. x documented in this encounter Plan of Treatment Upcoming Encounters Date Type Department Care Team (Late st Contact Info) Description 01/04/2025 13:00 EST Office Visit [facility] Ophthalmology - [address] [phone] Gagandeep Rome MD [address] [place] [address], [facility] [address] [place] [phone] 02/11/2025 13:30 EDT Telemedicine [facility] Hematology & Oncology [address] [phone] Dana Padilla MD [address] [place] [address], [facility] [address] [place] [phone] documented as of this encounter Visit Diagnoses Not on filedocumented in this encounter Discontinued Medications Medication Sig Discontinue Reason Start Date End Da te amoxicillin-clavulanate (AUGMENTIN) 875-125 mg per tablet 02/06/2021 03/19/2021 doxycycline (VIBRA-TABS) 100 mg tablet 02/06/2021 03/19/2021 LUSUTROMBOPAG ORALIndications:Hematol ogist prescribed -- 7 day course prior to 12/03/2020 Dr. Ortez surgery Take 3 mg by mouth daily. 03/19/2021 predniSONE (DELTASONE) 20 mg tablet TAKE 3 TABLETS BY MOUTH ONCE DAILY FOR 4 DAYS, START TOMORROW (11/18) 11/17/2020 03/19/2021 phenazopyridine (PYRIDIUM) 200 mg tablet Take 1 Tab by mouth 3 times daily as needed for Pain. 12/12/2020 03/19/2021 documented as of this encounter Care Teams Center Receptionist Relationship Specialty Start Date End Date Emigdio Veronica MD [address] [place] [phone] PCP - General Internal Medicine - Primary Care 05/22/20 02/21/24 documented as of this encounter
--- OUTSIDE RECORDS SUMMARY | 2024-11-22 17:16 | XMS_ITS | Encounter Summary ---
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 Not on [...] Jeet Black RN documented in this encounter Plan of Treatment Upcoming Encounters Date Type Department Care Team (Late st Contact Info) Description 01/04/2025 13:00 EST Office Visit [facility] Ophthalmology - [address] [phone] Gagandeep Rome MD [address] [place] [address], [facility] [address] [place] [phone] 02/11/2025 13:30 EDT Telemedicine [facility] Hematology & Oncology - [address] [phone] Dana Padilla MD [address] [place] [address], [facility] [address] [place] [phone] documented as of this encounter Visit Diagnoses Not on filedocumented in this encounter Care Teams Dyeing Machine Feeder Relationship Specialty Start Date End Date Emigdio Veronica MD [address] [place] [phone] PCP - General Internal Medicine - Primary Care 05/22/20 02/21/24 documented as of this encounter
--- OUTSIDE RECORDS SUMMARY | 2024-11-22 17:16 | XMS_ITS | Encounter Summary ---
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 90 Cap 03/26/2021 05/08/2021 documented in this encounter Miscellaneous Notes * Telephone Encounter - Kimberley Spring RN - 03/26/2021 1621 EDT Images from the original note were not included. Micheal Moseley MD Evans, Lisa, RN ?? Please arrange for 12 weeks of daily PPI as covered by ??pt health plan. Prescription sent to [facility] for Omeprazole 20mg daily ( to be taken 30 minutes prior to a meal). Patient is aware and verbalized understanding. documented in this encounter Plan of Treatment Upcoming Encounters Date Type Department Care Team (Late st Contact Info) Description 01/04/2025 13:00 EST Office Visit [facility] Ophthalmology - [address] [phone] Gagandeep Rome MD 111 [facility], [facility] [address] [place] [phone] 02/11/2025 13:30 EDT Telemedicine [facility] Hematology & Oncology - [address] [phone] Dana Padilla MD [address] [facility], Level [address] [place] [phone] documented as of this encounter Visit Diagnoses Not on filedocumented in this encounter Care Teams Health Services Rn Relationship Specialty Start Date End Date Emigdio Veronica MD [address] [place] [phone] PCP - General Internal Medicine - Primary Care 05/22/20 02/21/24 documented as of this encounter
--- OUTSIDE RECORDS SUMMARY | 2024-11-22 17:16 | XMS_ITS | Encounter Summary ---
Author Organization [facility] Address [address] [place] [address] Care Team Providers Care Continuous Linter Drier Operator Name Role Phone Emigdio Veronica MD Primary Care Provider + Encounter Details Date Type Department Care Team (Latest Contact Info) Description 04/08/2021 7:30 EDT Phlebotomy Only [facility] Laboratory Services - [facility] ([facility]) [address] [place] [address] Dysuria; Urinary retention; MUSA (acute kidney injury) ([facility]) Social History Tobacco Use Types Packs/Day [...] Start Date 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 Answer Date of Assessment Author No 12/17/2020 17:00 Jeet lBack RN * Do you have serious difficulty [...] Jeet Allen RN documented in this encounter Plan of Treatment Upcoming Encounters Date Type Department Care Team (Late st Contact Info) Description 01/04/2025 13:00 EST Office Visit [facility] Ophthalmology - [address] [phone] Gagandeep Rome MD 111 [facility], Level [address] [place] [phone] 02/11/2025 13:30 EDT Telemedicine [facility] Hematology & Oncology - [address] [address] Dana Padilla MD [address] [place] [address], [facility] 2 [place] [phone] documented as of this encounter Procedures Procedure Name Priority Date/Time Associated Diagnosis Comments URINE CHEMICAL (DIP) & SEDIMENT (MICRO) WITH REFLEX TO CULTURE Routine 04/08/2021 7:37 EDT Dysuria BACTERIAL CULTURE, URINE Today 04/08/2021 7:37 EDT Dysuria COMPREHENSIVE METABOLIC PANEL (CMP) Routine 04/08/2021 7:37 EDT Urinary retention documented in this encounter Results * (ABNORMAL) BACTERIAL CULTURE, URINE (04/08/2021 7:37 EDT) Organism ID [id number] to 100,000 CFU/ml Streptococcus agalactiae (Group B)(A) 04/09/2021 13:49 EDT [facility] Comment:Penicillin and ampic illin are drugs of choice for treatment of beta hemolytic streptococcal infections. Urine URINE SPECIMEN COLLECTION, CLEAN CATCH / Unknown Urine Collect / Unknown 04/08/2021 7:37 EDT 04/08/2021 9:02 EDT Emigdio Veronica MD MICROBIOLOGY - GENERAL O RDERABLES Final Result [facility] [address] [place] [address] * (ABNORMAL) COMPREHENSIVE METABOLIC PANEL (CMP) (04/08/2021 7:37 EDT) Sodium 138 136 - 145 mEq/L 04/08/2021 11:18 [facility] Potassium 4.1 3.5 - 5.0 mEq/L 04/08/2021 11:18 [facility] Chloride 102 96 - 110 mEq/L 04/08/2021 11:18 [facility] CO2 Total 26 22 - 32 mEq/L 04/08/2021 11:18 [facility] Glucose 112(H) 70 - 100 mg/dL 04/08/2021 11:18 [facility] BUN 16 10 - 26 mg/dL 04/08/2021 11:18 [facility] Creatinine 1.21(H) 0.52 - 1.04 mg/dL 04/08/2021 11:18 [facility] eGFR 49(L) >60 mL/min/1.7 3m2 04/08/2021 11:18 [facility] Comment:eGFR calculated lobito coppola CKD-EPI equation for non- Americans. Multiply eGFR by 1.16 for patients. Total Protein 6.2(L) 6.3 - 8.2 g/dL 04/08/2021 11:18 [facility] Albumin 3.5 3.4 - 4.9 g/dL 04/08/2021 11:18 [facility] Alkaline Phosphatase 110 38 - 126 U/L 04/08/2021 11:18 [facility] AST 25 15 - 46 U/L 04/08/2021 11:18 [facility] ALT 16 <35 U/L 04/08/2021 11:18 [facility] Bilirubin, Total <0.5 <1.4 mg/dL 04/08/20 11:18 [facility] Calcium 8.5 8.5 - 10.5 mg/dL 04/08/2021 11:18 [facility] Calculated Calcium 8.9 8.5 - 10.5 mg/dL 04/08/2021 11:18 [facility] Blood VENOUS BLOOD / Unknown Venipuncture / Unknown 04/08/2021 7:37 EDT 04/08/2021 7:37 EDT us Dom CLARKBS CHEMISTRY & BLOOD GAS O RDERABLES Final Result [facility] [address] [place] [address] * (ABNORMAL) URINE CHEMICAL (DIP) & SEDIMENT (MICRO) WITH REFLEX TO CULTURE (04/08/2021 7:37 EDT) Color UA Yellow Colorless, Yellow 04/08/2021 9:02 [facility] Clarity UA Clear Clear 04/08/2021 9:02 [facility] Glucose UA Negative Negative 04/08/2021 9:02 [facility] Bilirubin UA Negative Negative 04/08/2021 9:02 [facility] Ketones UA Negative Negative 04/08/2021 9:02 [facility] Specific [place], Urine 1.015 1.001 - 1.035 04/08/2021 9:02 [facility] Blood UA 2+(A) Negative 04/08/2021 9:02 [facility] Urobilinogen UA Normal Normal mg/dL 04/08/2021 9:02 [facility] Nitrite UA Negative Negative 04/08/2021 9:02 [facility] Leukocyte Esterase UA 2+(A) Negative 04/08/2021 9:02 [facility] Protein UA Negative Negative 04/08/2021 9:02 [facility] pH, UA 6.0 4.6 - 8.0 04/08/2021 9:02 [facility] Urine RBC Count, Auto 11 - 50(A) 0 - 2 Cells/HPF 04/08/2021 9:02 T [facility] Urine WBC Count, Auto 11 - 50(A) 0 - 3 Cells/HPF 04/08/2021 9:02 [facility] Urine Squamous Count, Auto Few(A) None Seen Cells/HPF 04/08/2021 9:02 [facility] Urine Hyaline Cast Count, Auto <=10 <=10 Casts/LPF 04/08/2021 9:02 [facility] Urine Bacteria Count, Auto None Seen None Seen Bacteria/HP F 04/08/2021 9:02 [facility] UA Small Round Cells Few Transitional Epithelial Cells(A) None Seen per HPF 04/08/2021 9:02 [facility] Additional Findings Trichomonas Present WBC Clumps Present(A) None Seen 04/08/2021 9:02 [facility] Urine URINE SPECIMEN COLLECTION, CLEAN CATCH / Unknown Urine Collect / Unknown 04/08/2021 7:37 EDT 04/08/2021 7:37 EDT Narrative [facility] - 04/08/2021 9:02 EDT A Urine Culture test has been reflexively ordered based on result criteria from the Urine Sediment Analysis. Urine Sediment Analysis results are unreliable on urines that are unrefrigerated for >2 hrs or refrigerated >8 hrs. Emigdio Veronica MD URINALYSIS ORDERABLES nal Result [facility] [address] [place] [address] documented in this encounter Visit Diagnoses Diagnosis Dysuria Urinary retention Retention of urine, unspecified MUSA (acute kidney injury) ([facility]) Acute kidney failure, unspecified documented in this encounter Care Teams Continuous Linter Drier Operator Relationship Specialty Start Date End Date Emigdio Veronica MD [address] [place] [phone] PCP - General Internal Medicine - Primary Care 05/22/20 02/21/24 documented as of this encounter
--- OUTSIDE RECORDS SUMMARY | 2024-11-22 17:16 | XMS_ITS | Encounter Summary ---
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 on 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 Not [...] EST Office Visit [facility] Ophthalmology - [address] [phone] Gagandeep Rome MD [address] [place] [address], [facility] 5 [place] [phone] 02/11/2025 13:30 EDT Telemedicine [facility] Hematology & Oncology - [address] [phone] Dana Padilla MD [address] [place] [address], [facility] 2 [place] [phone] documented as of this encounter Visit Diagnoses Not on filedocumented in this encounter Care Teams Food Products Sales Representative Relationship Specialty Start Date End Date Emigdio Veronica MD [address] [place] [phone] PCP - General Internal Medicine - Primary Care 05/22/20 02/21/24 documented as of this encounter
--- OUTSIDE RECORDS SUMMARY | 2024-11-22 17:16 | XMS_ITS | Encounter Summary ---
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 Not [...] EST Office Visit [facility] Ophthalmology - [address] [phone] Gagandeep Rome MD [address] [place] [address], [facility] 5 [place] [phone] 02/11/2025 13:30 EDT Telemedicine [facility] Hematology & Oncology - [address] [phone] Dana Padilla MD [address] [place] [address], [facility] 2 [place] [phone] documented as of this encounter Visit Diagnoses Not on filedocumented in this encounter Additional Health Concerns Infection Onset Date Last Indicated Resolved Time R/O COVID-19 Comment:Covid negative 04/13/2021 04/13/2021 04/13/2021 17:49 EDT documented as of this encounter Care Teams Dramatic Critic Relationship Specialty Start Date End Date Emigdio Veronica MD [address] [place] [phone] PCP - General Internal Medicine - Primary Care 05/22/20 02/21/24 documented as of this encounter
--- OUTSIDE RECORDS SUMMARY | 2024-11-22 17:16 | XMS_ITS | Encounter Summary ---
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 [...] EST Office Visit [facility] Ophthalmology - [address] [phone] Gagandeep Rome MD [address] [place] [address], [facility] [address] [place] [phone] 02/11/2025 13:30 EDT Telemedicine [facility] Hematology & Oncology [address] [phone] Dana Padilla MD [address] [place] [address] 2 [place] [phone] documented as of this encounter Visit Diagnoses Not on filedocumented in this encounter Care Teams Woodyard Crane Operator Relationship Specialty Start Date End Date Emigdio Veronica MD [address] [place] [phone] PCP - General Internal Medicine - Primary Care 05/22/20 02/21/24 documented as of this encounter
--- OUTSIDE RECORDS SUMMARY | 2024-11-22 17:16 | XMS_ITS | Encounter Summary ---
Author Organization [facility] Address [address] [place] [address] Care Team Providers Care Rn Licensed Practical Name Role Phone Emigdio Veronica MD Primary Care Provider + Reason for Visit * Reason Comments Abdominal Pain Midline abdominal pa in for several days. Pt ususlly on 2 Liters of oxygen at home, Here without her O2 * Auth/Cert Specialty Diagnoses / Procedures Referred By Contac t Referred To Contact Diagnoses Portal vein thrombosis Referral ID Status Reason Start Date Expiration Date Visits Re quested Visits Authorized [id number] 1 1 Encounter Details Date Type Department Care Team (Late st Contact Info) Description 04/22/2021 22:55 EDT - 04/25/2021 13:50 EDT Hospital Encounter [facility] General Medicine Unit [address] [place] [address] Sharon Willett, PALeslieC [address] [facility], Level [address] [place] [address] Brianne Zepeda MD [address] [facility] [address] [place] [id number] Prashanth Faust PA-C [address] [place] [address] Deepti Peterson MD [address] [place] [phone] Portal vein thrombosis (Primary Dx); Cirrhosis of liver without ascites, unspecified hepatic cirrhosis type (HCC-CMS); Abdominal pain, unspecified abdominal location Discharge Disposition: Home or Self Care Social [...] 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 No / Unsure 04/13/2021 13:03 EDT documented as of this encounter Last Filed Vital Signs Vital Sign Reading Time Taken Comments Blood Pressure 95/58 04/25/2021 1300 EDT Pulse 110 04/22/2021 215 EDT Temperature 36.1 ??C (97 ??F) 04/25/2021 1300 EDT Respiratory Rate 18 04/25/2021 0436 EDT Oxygen Saturation 95% 04/25/2021 0436 EDT Inhaled Oxygen Concentration - - Weight 90.9 kg (200 lb 6.4 oz) 04/25/2021 0600 E DT Height 162 cm (5' 3.78) 04/25/2021 06 EDT Body Mass Index 34.64 04/25/2021 06 EDT documented in this encounter Functional Status [...] documented in this encounter Discharge Summaries * Deepti Peterson MD - 04/25/2021 1350 EDT Medicine Discharge Summary Primary Care Provider: Emigdio Veronica Attending Physician: Deepti Peterson MD Admit Date: 04/22/2021 Discharge Date: 04/25/2021 Disposition: Home or self care Reason for Admission: abdominal pain Principal/Final Diagnosis: Portal vein thrombosis Additional Problems Managed in the Hospital Active Hospital Problems Diagnosis Date Noted ??? *Portal vein thrombosis 04/23/2021 Resolved Hospital Problems No resolved problems to display. Principal Procedure: None Imaging: CT angio abdomen/pelvis 04/23/21: IMPRESSION 1. No abdominal aortic aneurysm or [...] thickening. 4. Colonic diverticulosis. 5. Prior hysterectomy. Hospital Course: Tara Boothe is a 60 y.o. female with a PMHx of QUIROZ cirrhosis with chronic portal vein thrombosis, hypersplenism, pancytopenia, hypothyroidism, HUEY, COPD, and chronic back pain admitted to the Medicine service with acute on chronic RUQ abdominal pain and nausea. She also complained of paresthesias, myalgia, and pruritus in her bilateral lower extremities. CT scan from the ED showed evidence of cirrhosis and a patent portal vein but with thrombosis that may be slightly increased in size since November 2019. Very slight peripancreatic inflammation was also noted with a normal lipase. No other lab or imaging evidence of acute abdomen was appreciated. ?? Tara was admitted to the floor and Hematology was consulted. They recommended starting enoxaparin [...] leaving. Recommending follow-up with Dr. Paige after discharge regarding duration of enoxaparin therapy. Of note, patient has some symptoms of lower extremity claudication. Recommend DEWAYNE studies as an outpatient. Condition at Discharge: Stable Clinical Issues Needing Follow-up: Portal vein thrombosis: - follow up with Dr Paige in the next few weeks - continue enoxaparin 40mg subcutaneous daily - supportive care for abdominal pain and nausea Allergies Allergen Reactions ??? Morphine Anaphylaxis ??? Sulfa (Sulfonamide Antibiotics) Anaphylaxis ??? Tylenol [Acetaminophen] Other (See Comments) Contraindication with medical hx ??? Flagyl [Metronidazole] Other (See Comments) Fatigue ??? Aspirin Other (See Comments) Contraindication with medical hx ??? Injectafer [Ferric Carboxymaltose] ??? Lyrica [Pregabalin] Anxiety Insomnia ??? Reglan [Metoclopramide Hcl] Rash Immunization History Administered Date(s) Administered ??? Covid-19 mRNA Vaccine ([employer] COVID-19) PF 0.3 ml IM (16 yrs+) 04/01/2021 ??? Historical Influenza Vaccine, Unspecified 09/24/2014 ??? [...] (Adult) 2 Lf Vaccine =>7yo IM 03/17/2019 Results Pending at Discharge Test results still pending from this admission None Upcoming Appointments Apr 29, 2021 9:45 (Arrive by 9:15) US ABDOMEN LIMITED with [facility] US FAH3 Bibi [facility] Ultrasound ([facility] Radiology Bibi) [address] [facility] [id number] May 15, 2021 13:15 Office Visit Medium with Emigdio Veronica MD [facility] Adult Primary Care - [place] ([facility] Primary Care Center) [address] [place] [address] Follow-up appointments and procedures Amb Consult/Follow Up Hematology Reason for Request: established patient now with portal vein thrombosis on enoxaparin prophylaxis Authorizing Provider: Carlos Padilla MD Amb Consult/Follow Up Primary Care Physician Reason for Request: hospital follow up visit Authorizing Provider: Carlos Padilla MD Discharge Handoff Communication Following information conveyed to PCP Dr Veronica by [employer] staff message, by Carlos Padilla MD: ?? Reason for admission and final diagnosis ?? Medication changes ?? Appointments and tests needed after discharge (includes repeat studies and at what interval) ?? Tests (laboratory, pathology, etc.) pending at discharge ?? Anticoagulation plan if applicable (including medications and next blood draw) Discharge Summary Completed By: Carlos Padilla MD Internal Medicine, PGY-2 #0347/Cortext Attestation: Pt seen and examined. I have reviewed Dr. Padilla's note and agree with her summary as outlined above. DOS 04/25/2021. Deepti Peterson MD, MPH documented in this encounter Discharge Instructions * Discharge Instr - AVS First Page* Carlos Padilla MD - 04/25/2021 11:03 EDT You were admitted to the hospital with abdominal pain that was worse than your usual pain. Your imaging showed a slight worsening of a blood clot in your Portal Vein. Our hematology team recommends that you continue on a low dose blood thinner called enoxaparin (Lovenox) 40mg daily. This is injected into your skin. Follow up with Dr Paige in the next 1-2 months to discuss how long you will need this medication. Follow up with your PCP in the next 1-2 weeks. You are being discharged with a short course of a medication called Robaxin (methocarbomal) to helpwith your pain. documented in this encounter Medications at [...] mouth daily. 90 Tab 1 04/10/2021 1 levothyroxine (SYNTHROID) 25 mcg tablet Take [...] 1 omeprazole (PRILOSEC) 20 mg capsule Take 1 Cap by mouth daily. 90 Cap 03/26/2021 1 ondansetron (ZOFRAN) 4 mg tablet Take [...] aerosol inhaler inhalerIndicatio ns:COPD with asthma ([facility]) Inhale 2 Puffs as directed daily. [...] Muscle Spasms (abdominal pain). 30 Tab 04/25/2021 05/16/2021 enoxaparin (LOVENOX) 40 mg/0.4 mL injection Inject 40 mg into the skin daily for 30 days. 30 Syringe 04/25/2021 05/15/2021 documented in this encounter Discharge Disposition Disposition Code Departure Means Destination Home or Self Skilled Nursing documented in this encounter Progress Notes * Deepti Peterson MD - 04/24/2021 1649 EDT Medicine Progress Note Service Date: 04/24/2021 Admit Date: 04/22/2021 22:55 Reason for Admission: 60 y.o. female admitted with a chief complaint of abdominal pain and now witha principal diagnosis of portal vein thrombosis. 24 Hour Events: - Made NPO briefly due to abdominal pain then back to full diet Subjective/Objective Subjective Gena feels good this morning. She slept pretty well. She is less nauseous than yesterday. She still has some epigastric pain with mild nausea. She has been tolerating some food and water. She is aware of her enoxaparin training she will be receiving tomorrow before discharge. She denies fever, chills, chest pain, shortness of breath, and vomiting. Review of Systems A ten point review of systems was performed and was negative except for pertinent positives noted in the HPI Objective Vital Signs Temp: [35.5 ??C (95.9 ??F)-36.2 ??C (97.2 ??F)] , Heart Rate: [66 BPM-83 BPM] , Resp: [14-18] , BP:(96-117)/(55-75) , SpO2: [97 %-98 %] Physical Exam General: Alert, aware, and oriented to person, place, and time. No acute distress. Pleasant and cooperative. HEENT: Normocephalic/atraumatic. Conjunctivae clear and non-icteric. Extraocular movements intact. Cardiovascular: Normal rate, regular rhythm. No murmurs, rubs, or gallops. S1 and S2 are heard and are of normal intensity. Respiratory: Clear to auscultation bilaterally. No wheezes, rales, or rhonchi. Good, symmetric chest expansion with good pulmonary effort. No signs of respiratory distress. Abdominal: Abdomen soft, non-distended, tender to palpation in RUQ. No rebound or guarding. Normoactive bowel sounds. Extremities: Warm and well-perfused. No edema. Dark discoloration with scratch connolly on dorsum of feet and lower shins. Neurological: Alert, aware, and oriented to person, place, and time. Fluent speech. No facial droop. Purposefully moving all extremities against gravity. Psychiatric: Appropriate mood and affect. Is PICC or central line present? No, PICC/Central line not present. Medications Reviewed: Changes notable for enoxaparin starting tomorrow morning. Labs Reviewed: No significant findings. Imaging Reviewed: No new imaging. Assessment/Plan Assessment Tara Boothe??is a 60 y.o.??female??with a PMHx significant for QUIROZ cirrhosis with portal vein thrombosis, hypersplenism, pancytopenia, hypothyroidism, HUEY, COPD, and chronic back pain here with acute on chronic epigastric abdominal pain. Portal vein thrombosis possible cause of abdominal pain,but unclear. Will continue supportive care. Plan Acute on chronic portal vein thrombosis: Uncertain if this is the cause of patient's acute pain. Complicated by chronic pancytopenia, followed by heme as outpt. [place] [facility] previously not on anticoagulation after initial thrombosis found in 2017. Patient initially started on heparin gtt. - Hematology following, recommend starting enoxaparin subcutaneous 40 mg daily and continuing on discharge - Will have enoxaparin injection training tomorrow morning before discharge Cirrhosis: -Volume: currently euvolemic, cont with [employer] lasix 20 mg daily and spironolactone 50 mg daily, strict I/O's -Infection: no hx of SBP, no ascites on imaging, low concern -Bleeding: currently no sx of bleeding. Recent endoscopy 03/26/21 showed pyloric channel ulcer and esophagitis without varices. Currently on PPI -Encephalopathy: no sx of encephalopathy at the moment. currenlty reporting diarrhea, will hold on lactulose until BM pattern becomes clear. Consider starting if showing sx of constipation or encephalopathy -Screening: last done in 2018, positive Hep A ab, Hep B immune, HCV viral load undetected ?? Lower extremity paresthesias/myalgias: pulses intact, no concern for infection or ischemia, electrolytes adequate - will order PVR and arterial doppler BL LE's as outpatient given claudication VTE Prophylaxis Pharmacologic Prophylaxis: Enoxaparin (Lovenox) 40 mg SQ daily Discharge Plan Home or self care tomorrow Consults Flavia Singh 04/24/2021 16:50 I was present with the medical student for the history, exam, and medical decision making documented. I have edited the medical student note as appropriate. Edits made in green Carlos Padilla MD Internal Medicine, PGY-2 #0347/Cortext Attestation: Pt seen and examined; I have reviewed Dr. Padilla and MS Wagner's note and agree with their findings, A and P as outlined above, with my additions in blue. I have personally reviewed the laboratory and radiology results. I have personally spoken with housestaff and nursing. DOS 04/24/2021. Deepti Peterson MD, MPH * Eva Pond RN - 04/24/2021 4390 EDT CASE MANAGEMENT DISCHARGE NOTE (Pending for Wednesday 04/25): DISCHARGE DATE/TIME: Tuesday04-25-2021 (Time TBD) DISCHARGE LOCATION: Home Address: [facility] MODE OF TRANSPORT: Family/ friend IM SIGNED: N/a (signed on admission 6/3) DME: N/a PRESCRIPTIONS/ PHARMACY: Med list/ AVS to be reviewed with Nursing prior to discharge. Referred to 'Meds to Beds' program; Pharmacist with deliver/ review prescription medication orders at bedside. CMSW dept to assist with medication copay. PATIENT AWARE AND IN AGREEMENT OF PLAN: Yes MD/ UNIT SEC/ CHARGE NOTIFIED: Yes OTHER: Patient declining Home Health Nursing services Will require Nursing to assist with Med education of Enoxaparin and instructions on how to self-administer. Patient to self-administer 6/5 am injection. Eva Pond RN CM Case Management & Social Work Pager: [phone] * Eva Pond RN - 04/24/2021 0801 EDT Initial Case Management/Social Work Assessment and Discharge Plan/Readmission Risk Assessment REASON FOR ADMISSION: Portal vein thrombosis Patient understands reason for admission: Yes PATIENT INFO VERIFIED: PCP: MD Emigdio Veronica Contact Info: Rikki Rojas ([phone]) Address: [address] [place] [address] Type of housing (single family, condo, apartment, assisted, single room occupancy, [facility] funded hotel room, group long term) - Shared home Who does the patient live with? Friends/ roommates Does the patient have access to their own bedroom/bathroom/kitchen - or is it shared with others? Shared living space LIVING ARRANGEMENTS AND ACCESSIBILITY ISSUES: Living Arrangements: Friends, Apartment Levels: 2 Stairs to enter: 3 Handicap access: Railings into home, Railings to upstairs, Railings to downstairs Bathroom located on bedroom level?: Yes What in home social supports are available to the patient? Friends / neighbors, Family member(s) Is 24/7 care available? NA ADVANCED DIRECTIVES, POA &/or COLST IN PLACE: Healthcare Directive: No, patient does not have advance directive for healthcare treatment Copy in Chart: Yes, previous copy on file @ [facility] Information Provided on Healthcare Directives: No Information on Healthcare Directives Requested: No DIRECTIVES FOR FINANCES: Directive For Finances: No TRANSPORTATION: Patient expects to be discharged to: Home CULTURAL, NONDENOMINATIONAL and/or LANGUAGE factors affecting health care/discharge planning: Spiritual/Cultural Requests: None Language/Literacy Needs Do you need us to provide any communication aids or devices?: No Insurance Information: Medical Insurance: Yes Type of insurance: Medicare, Medicaid Medicare type: A, B Medicaid Type: Community Referred to patient financial services: No Nutrition: Regular Diet ([employer] - low risk assessment in regards to food insecurity) DISCHARGE RISK ASSESSMENT: Diagnosis of COPD;Repeat hospitalizations/ED [...] in place/initiated?: No, not indicated FUNCTIONAL STATUS: Assistive Device: None COMMUNITY RESOURCES/SUPPORTS: Primary Care Provider: Emigdio Veronica PCP Verified: Specialists: Other(hematology, urology) Type of Home Health Services: None DME Provider: [facility]: [facility]/pharmacy #[id number] - [address] [address] [facility]/pharmacy #[id number] - [address] [place] [address] Home Health: No current HH services Other: N/a POST HOSPITAL TRANSITION PLAN: Presented to [facility] 04/22/2021 with c/o acute RUQ abdominal pain radiating to back that increased x2-3days. Also c/o nausea/ dry heaves/ diarrhea and increased SOB. Patient has experienced increased BLE edema for past year with discoloration/ decreased sensation of bilat feet Admitted for management of acute/ chronic portal vein thrombosis with heparin gtt initiated. Is followed by hematology outpatient and service consulted for current admission. States last hospitalization was in 02/2021 @ [facility] for PNA. PMH/ Anxiety/ depression, QUIROZ cirrhosis, PVT, hypersplenism, pancytopenia, hypothyroid, HUEY, COPD (Patient on 2L supplemental home O2 at night - Vendor is [facility] [employer]) Patient denies current tobacco or alcohol use. Has had One Pfizer Covid Vaccine to date. Was scheduled for second Vaccine 04/22 on day of current admission. A&Ox3 and independent with all A/Iadl's at baseline. Does not require use of any assistive devices for mobility and is not currently connected with any community support services. Patient resides in [place] and rents a room from friends/ neighbors. She currently does not own vehicle although she has support from friends/ family to assist with transportation to appointments/ errands etc. Son Bobby resides in [facility] and is listed as an emergency contact ([phone]) along with her stepdaughter Samy ([phone]). Daughter Dolores resides in [facility]. Patient anticipating discharge to home once medically cleared without any additional needs/ support. May require assist with arranging transportation to home. CM will continue to follow throughout hospitalization. /tlvRN pg [phone] EVA POND RN 04/24/2021 8:01 * Deepti ePterson MD - 04/23/2021 1816 EDT Medicine Progress Note Service Date: 04/23/2021 Admit Date: 04/22/2021 22:55 Reason for Admission: 60 y.o. female admitted with a chief complaint of abdominal pain and now witha principal diagnosis of portal vein thrombosis. 24 Hour Events: - admitted to general medicine Subjective/Objective Subjective Patient continues to report severe RUQ abdominal pain. Feels hungry and would like to try to eat something. No fevers, chills. Intermittent nausea Review of Systems A ten point review of systems was performed and was negative except for pertinent positives noted in the HPI Objective Vital Signs Temp: [35.5 ??C (95.9 ??F)-36.9 ??C (98.4 ??F)] , Heart Rate: [63 BPM-95 BPM] , Resp: [8-24] , BP: (81-126)/(40-109) , SpO2: [87 %-100 %] Physical Exam General appearance: alert, cooperative, no apparent distress HEENT: Anicteric sclera, mucous membranes moist. No Nystagmus. Neck supple Lungs: clear to auscultation bilaterally, good air movement throughout Heart: RRR, S1, S2 normal, no murmur, rub or gallop Abdomen: soft, non-distended; tender to palpation diffusely; bowel sounds normal; no masses, no organomegaly : no camacho Extremities: warm and well perfused, no edema Skin: Skin color, temperature, turgor normal. No rashes or lesions Neurologic: AAOx3. Moving all extremities. Fluent speech. No focal deficits noted Is PICC or central line present? No, PICC/Central line not present. Medications Reviewed: Changes notable for lovenox 40mg SQ daily Labs Reviewed: CBC Recent Labs 04/22/21232004/23/21 0537 WBC 2.79* 2.64* HGB 12.7 11.1* PLT 45* 43* BMP Recent Labs 04/22/21232004/23/21 0536 NA 138 134* K 4.3 3.8 CL 103 100 CO2 25 23 CREATININE 1.30* 1.16* LFT Recent Labs 04/22/21232004/23/21 0536 AST 28 37 ALT 16 19 ALKPHOS 69 61 Coags No results for input(s): INR, PROTIME, PTT in the last 72 hours. ABG ABGs: Lab Results Component Value Date PHISTAT 7.38 04/26/2020 PCOISTAT 41 04/26/2020 POISTAT 52 (L) 04/26/2020 POCTCO2 26 04/26/2020 Imaging Reviewed: CT angio abdomen/pelvis: IMPRESSION 1. No abdominal aortic aneurysm or [...] thickening. 4. Colonic diverticulosis. 5. Prior hysterectomy. Assessment/Plan Assessment Tara Boothe is a 60 y.o. female with a PMHx significant for QUIROZ cirrhosis w/ portal vein thrombosis, hypersplenism, pancytopenia, hypothyroidism, HUEY, COPD, and chronic back pain here with acuteon chronic abdominal pain. Imaging with patent portal vein though progression of known portal vein thrombosis, unclear if this would be the cause of patient's acute pain. Mild inflammation around thepancreas but with negative lipase. We will continue supportive care. Plan Acute on chronic portal vein thrombosis: Uncertain if this is the cause of patient's acute pain. Complicated by chronic pancytopenia, followed by heme as outpt. [place] [facility] previously not on anticoagulation after initial thrombosis found in 2017. Patient initially started on heparin gtt. -Hematology consulted overnight, appreciate their recommendations -Final read of CT abdomen/pelvis with patent portal vein but interval increase in extent of portal vein thrombosis --Per hematology recommendations we will start SQ Lovenox 40 mg daily -Discontinue heparin GTT Acute on chronic abdominal pain with peripancreatic inflammation: Very subtle findings on imaging, negative lipase. If patient's pain is worsened by p.o. intake, will treat for mild pancreatitis withIVF and restricted diet. -IV Zofran 4 mg every 4 hours for nausea -PO Dilaudid 2 mg every 4 hours as needed -If worsened abdominal pain with p.o. intake, make n.p.o. and start IVF Cirrhosis: -Volume: currently euvolemic, cont with [employer] lasix 20 mg daily and spironolactone 50 mg daily, strict I/O's -Infection: no hx of SBP, no ascites on imaging, low concern -Bleeding: currently no sx of bleeding. Recent endoscopy 03/26/21 showed pyloric channel ulcer and esophagitis without varices. Currently on PPI -Encephalopathy: no sx of encephalopathy at the moment. currenlty reporting diarrhea, will hold on lactulose until BM pattern becomes clear. Consider starting if showing sx of constipation or encephalopathy -Screening: last done in 2018, positive Hep A ab, Hep B immune, HCV viral load undetected Lower extremity paresthesias/myalgias: pulses intact, no concern for infection or ischemia, electrolytes adequate CTM VTE Prophylaxis Pharmacologic Prophylaxis: Enoxaparin (Lovenox) 40 mg SQ daily Discharge Plan Home or self care pending improvement in abdominal pain (do not expect this will totally resolve) and tolerance of PO. Likely next 1-2 days [facility] MD Internal Medicine, PGY-2 #0347/Cortext Attestation: Pt seen and examined; I have reviewed Dr. Padilla's note and agree with her findings, Aand P as outlined above, with my additions in blue. I have personally reviewed the laboratory and radiology results. I have personally spoken with housestaff, nursing, and Dr. Zepeda ( Hosp). DOS 04/23/2021. Deepti Peterson MD, MPH * Terra Crabtree - 04/23/2021 0344 EDT Respiratory Consult/Progress Note Indications for Respiratory therapy: Consult Data Vitals: Heart Rate: 86 BPM, Resp: 16, SpO2: 97 % FIO2/O2 Device: O2 Flow Rate (L/min): 2 l/min, , O2 Device: Nasal cannula, RT Orders: None at this time Protocol Scoring: Bronchodilator/Inhalation Therapy Frequency Bronchodialator - Clinical Indications: History of COPD Breath Sounds: Any abnormal BS decreased Response: No change / no treatment Pulse: <100 Resp Rate: 18-25 SOB: With exertion Total Score: 3 Airway Clearance Therapy Frequency Airway Clearance - Clinical Indications: History of mucous production Breath Sounds: Clear / diminished Sputum: Small (tsp) / None Consistency: Thin / thick Cough Effort: Strong/ productive Color: None Total Score: 2 Hyperinflation Therapy Frequency Hyperinflation - Clinical Indications: No clinical indications Breath Sounds: Other Surgery: No X-Ray / Atelectasis: No O2 Requirements: O2 at baseline Mobility Status: Mobile / at baseline Total: 1 Action/Events Respiratory events; Pt has a hx of COPD and Asthma. Pt reports that she uses 2L noc and PRN during the day for home O2.Pt reports that she does not use NIV however she does have two home MDI's that she is able to administer independently. Pt takes BID Symbicort and PRN Albuterol. Pt stated that she has recently quit smoking ( she was down to 1-2 cigarettes a day before) TERRA CRABTREE 04/23/21 documented in this encounter H&P Notes * Brianne Zepeda MD - 04/23/2021 0237 EDT Medicine Admission History & Physical Service Date: 04/23/2021 Admit Date: N/A Primary Care Provider: Emigdio Veronica Chief Complaint: Abdominal pain HPI Tara Boothe is a 60 y.o. female with a PMHx of QUIROZ cirrhosis w/ portal vein thrombosis, hypersplenism, pancytopenia, hypothyroidism, HUEY, COPD, and chronic back pain here with acute RUQ abdominal pain. Pt reports that she first started getting abd pain 2-3 days ago and it has slowly worsened since then. It is mostly in the RUQ and radiates to the back. She has also had nausea, dry heaves, and episodes of diarrhea. Has not noticed any blood in her diarrhea Has been feeling feverish as well. Feels that her LE have been turning black with swelling and pain that has worsened acutely recently. At times they will feel cold to the touch and numb. She is on 2L oxygen at home, usually just when sleeping, and has noticed an increase need for oxygen during the day as well lately. In the ED she was afebrile and HD stable. She was given IV dilaudid for her pain and a 1L NS bolus.She reports that the first dose of dilaudid did help her pain, but the second didn't help at all (It's as if I never even had it.). Of note, pain seemed to improve during encounter and then worsen with new staff in her exam room. She had labs that were significant for Cr 1.30, nml LFTs, WBC 2.79,Hb 12.7, and Plt 45. A bedside US showed no free fluid in abdomen and CT abdomen showed acute on chronic portal and splenic vein thrombus. Due to low platelet count hematology was consulted who recommended starting heparin drip with close follow up of CBC. She was admitted to medicine service for further work up and management. Tells me no history of abdominal pain and no chronic pain medication use. This appears inconsistentwith outpatient documentation. Earlier this year she was evaluated for abdominal pain by GI. Reports 10/10 abdominal pain during my exam. Of note, she was recently in ED and received azithromycin andthen more recently was on flagyl for possible vaginal infection. She was due for second dose of COVID vaccine today. She thought her chronic thrombosis had resolved on imaging and was not on anticoagulation based on 2017 discharge summary. She had an upper endoscopy a month ago with non-bleeding ulcer negative for Hpylori. Denies any major bleeding history but has received transfusions before. Low grade cognitive issues for a while but no h/o encephalopathy. Took imodium day prior to presentation with no subsequent BMs and also took morning of presentation; reported having fecal incontinence it was so frequent. Review of Systems A complete 10 point ROS was performed and pertinent positive and negative findings listed in HPI, otherwise negative. Past Medical History: Diagnosis Date ??? Anemia ??? Anxiety ??? Asthma 12/10/2020 currently not taking - mild persistent - see dr. Veronica 11/20/2021 ??? Bleeding disorder ([facility]) ??? Bursitis right shoulder ??? C. difficile colitis 07/25/2015 Hospitalized after kidney stone removal ??? Chronic ITP (idiopathic thrombocytopenia) (HCC-CMS) 12/10/2020 - see 11/20/2020 Dr. Veronica H&P, (managed by Starr Paige MD) ??? Chronic kidney disease slow to come back ??? Cirrhosis of liver (HCC-CMS) ??? Clotting disorder (HCC-CMS) ??? Community acquired pneumonia january 2021 ??? COPD exacerbation ([facility]) 04/26/2020 ??? Depression ??? Drug-seeking behavior Per [...] Pack years: 8.75 Types: Cigarettes Quit date: 04/09/2021 Years since quittin.0 ??? Smokeless tobacco: Never Used ??? Tobacco comment: currently a few per week Substance Use Topics ??? Alcohol use: No Alcohol/week: 0.0 standard drinks Family History Problem Relation Age of Onset ??? Cancer Maternal Grandmother skin ??? Diabetes Mother ??? Coronary Artery Disease Father ??? Clotting Disorder Father ??? Diabetes Brother Current Outpatient Medications Medication Sig ??? albuterol (ACCUNEB) 2.5 mg /3 mL (0.083 %) nebulizer solution USE 1 VIAL VIA NEBULIZER 4 TIMES A DAY NEEDED ??? albuterol 90 mcg/actuation inhaler Inhale 1-2 Puffs as directed every 4 hours as needed for Wheezing. ??? albuterol 90 mcg/actuation inhaler Inhale 2 Puffs as directed every 4 hours as needed. ??? furosemide (LASIX) 20 mg tablet Take 1 Tab by mouth daily. ??? levothyroxine (SYNTHROID) 25 mcg tablet Take 1 Tab by mouth daily. Unknown dose (Patient takingdifferently: Take 25 mcg by mouth daily before breakfast. ) ??? magnesium oxide (MAG-OX) 400 mg (241.3 mg magnesium) tablet Take 1 Tab by mouth daily. ??? omeprazole (PRILOSEC) 20 mg capsule Take 1 Cap by mouth daily. ??? ondansetron (ZOFRAN) 4 mg tablet Take 1 Tab by mouth 2 times daily as needed for Nausea. ??? OXYGEN-AIR DELIVERY SYSTEMS MISC 2 L by misc (non-drug; combo route) route at bedtime. ??? sertraline (ZOLOFT) 50 mg tablet Take 1 Tab by mouth daily. ??? spironolactone (ALDACTONE) 50 mg tablet Take 1 Tab by mouth daily. ??? SYMBICORT 160-4.5 mcg/actuation HFA aerosol inhaler inhaler Inhale 2 Puffs as directed daily. (Patient taking differently: Inhale 2 Puffs as directed daily before breakfast. ) ??? traZODone (DESYREL) 100 mg tablet Take 2 Tabs by mouth at bedtime. Allergies Allergen Reactions ??? Morphine Anaphylaxis ??? Sulfa (Sulfonamide Antibiotics) Anaphylaxis ??? Tylenol [Acetaminophen] Other (See Comments) Contraindication with medical hx ??? Flagyl [Metronidazole] Other (See Comments) Fatigue ??? Aspirin Other (See Comments) Contraindication with medical hx ??? Injectafer [Ferric Carboxymaltose] ??? Lyrica [Pregabalin] Anxiety Insomnia ??? Reglan [Metoclopramide Hcl] Rash Objective Vitals Temp: [36.7 ??C (98.1 ??F)-36.9 ??C (98.4 ??F)] , Heart Rate: [76 BPM-95 BPM] , Pulse: [110] , Resp: [13-24] , BP: (105-126)/(42-109) , SpO2: [87 %-100 %] , O2 Flow Rate (L/min): 2 l/min Numeric Pain Level (Scale 1-10): 8 Weight: Body mass index is 34.16 kg/m??. Physical Exam Gen: pleasant, conversant, lying in hospital bed and periodically wincing in pain and rubbing belly. CV: RRR, no murmurs Resp: no increased WOB, diffuse wheezing BL on auscultation Abd: soft, non-distended, diffuse TTP without rebound or guarding, hepatosplenomegaly bowel sounds present and grimaced with some upper quadrant palpation but with distraction the exam is not concerning for acute abdomen Ext: hyperpigmented LE below the knee, warm to the touch, 2+ pedal pulses BL, no peripheral edema intact sensation Pressure Ulcer Present on admission? No Labs I have personally reviewed Recent Labs 04/22/21 2321 WBC 2.79* RBC 4.39 HGB 12.7 HCT 36.9 MCV 84 MCH 28.9 MCHC 34.4 PLT 45* NEUTROABS 2.25 Recent Labs 04/22/21 2321 NA 138 K 4.3 CL 103 CO2 25 BUN 18 CREATININE 1.30* CALCIUM 9.0 MG 1.8 LABALBU 4.2 Recent Labs 04/22/21 2321 TROPONINI <0.034 Recent Labs 04/22/21 2321 TBIL 0.9 ALKPHOS 69 AST 28 ALT 16 LIPASE 75 Imaging Imaging read of CT angio abd/pelvis not available at time of note, but per verbal report, shows signs of acute on chronic worsening portal and splenic thrombus. Assessment Tara Boothe is a 60 y.o. female with a PMHx significant for QUIROZ cirrhosis w/ portal vein thrombosis, hypersplenism, pancytopenia, hypothyroidism, HUEY, COPD, and chronic back pain here with acuteRUQ abdominal pain most likely 2/2 worsening of portal vein thrombosis. With her reports of diarrhea and recent use of abx there is some concern that this is an acute colitis picture. Will want to monitor closely and may need to do stool studies. With low to no abd fluid/ascities, concern for SBP is low, though we should also keep this in mind as her clinical picture adjusts. Plan Acute on chronic portal vein thrombosis: complicated by chronic pancytopenia, followed by heme as outpt, most likely source of current abd pain longstanding and previously followed [place] [facility] [place] decision not to anticoagulate (2017) - hematology consulted, appreciate recs - cont with heparin drip - daily CBC, monitor for bleeding closely - if starting to bleed, stop heparin drip and reverse anticoagulation with protamine if significantbleed - 2 mg PO dilaudid q4h PRN for pain - monitor use of pain medications closely, may need adjustments - [employer] 4 mg PO zofran for nausea Follow up final read to confirm acuity of thrombosis (verbal from ED discussion with radiology but written report not available) Discussed risk/benefit with patient considering platelet count Diarrhea: - CTM, may need stool studies if this persists history of cdiff on PMH tab Worsening renal function in past 6-9 months - appears to be at recent baseline CTM Lower extremity paresthesias/myalgias - pulses intact, no concern for infection or ischemia, electrolytes adequate CTM Cirrhosis Volume: currently euvolemic, cont with [employer] lasix 20 mg daily and spironolactone 50 mg daily, strictI/O's Infection: no hx of SBP, no sx of this at the moment Bleeding: currently no sx of bleeding. Recent endoscopy 03/26/21 showed pyloric channel ulcer and esophagitis without varices. Currently on PPI Encephalopathy: no sx of encephalopathy at the moment. currenlty reporting diarrhea, will hold on lactulose until BM pattern becomes clear. Consider starting if showing sx of constipation or encephalopathy Screening: last done in 2017, positive Hep A ab, Hep B immune, HCV viral load undetected COPD: on 2L oxygen at home - cont with [employer] inhalers and abluterol PRN - monitor for oxygen requirements, consider chest imaging if worse than [employer] use Hypothyroidism - cont [employer] synthroid 25 mcg Daily VTE Prophylaxis Pharmacologic Prophylaxis: Heparin drip Code: Full code Discharge Plan Uncertain at this time Consults [facility] Admission status Inpatient admission due to anticipated duration of hospitalization is two midnights or greater due to portal vein thrombus. KIANA LOVE MD 04/23/2021 3:50 ATTENDING ATTESTATION Date of service: 04/23/2021 I have interviewed and examined the patient. I personally reviewed laboratories studies, radiographic study reports, and prior records. I discussed the case with Dr. Justice(ED provider) and Dr. Love (medicine resident). I agree with the findings and plan of care as documented in the note above except as noted with changes in blue. Anticipate require inpatient length of stay greater than two midnights. Brianne Zepeda MD Hospitalist 04/23/2021 6:29 documented in this encounter Consult Notes * Ryan Lan MD - 04/23/2021 0957 EDT HEMATOLOGY CONSULT NOTE Admit Date: 04/22/2021 Date of Service: 04/23/2021 REASON FOR CONSULT: CONSULT REQUESTED BY: Brianne Zepeda MD;Dec* HISTORY OF PRESENT ILLNESS: Tara Boothe is a 60 y.o. female with a PMHx of QUIROZ cirrhosis w/ portal vein thrombosis, hypersplenism, pancytopenia, hypothyroidism, HUEY, COPD, and chronic back pain here with acute RUQ abdominal pain since last 2-3 days slowly worsening and radiates to the back. In ED her labs showed Cr 1.30, nml LFTs, WBC 2.79, Hb 12.7, and Plt 45. A bedside US showed no freefluid in abdomen and CT abdomen showed chronic portal vein thrombus with some extent of progressionwhen compare to Nov 2020. She was started on Heparin gtt on 04/22/21. Today - Patient is still in pain but slightly improved. She is has no more episodes of diarrhea. She denied any N/V/D, fever, chills, chest pain, SOB, cough, melena, hematuria. She has not eaten anything yet. FHx: Father had a DVT at 80 years and mother with bone cancer. SHx: She has 12 grand Childrens. She denied any ETOH, smoking or illicit drugs. Heme Hx - As per Dr. Paige's note 60 y.o. y.o. years old white female with past medical history of asthma, hyperlipidemia, GERD, history of nonalcoholic fatty liver disease, history of hepatitis C as well as known decompensated livercirrhosis with portal hypertension, severe hepatosplenomegaly as well as history of hepatic encephal opathy is being transferring care from [facility] to [facility] because of relocation. Patient is following Dr. Ijeoma Smith, GI Department in [facility] for long-standing decompensated liver cirrhosis, portal hypertension and hepatic encephalopathy. She was also formerly seen by hematology oncology clinic in [facility], underwent bone marrow biopsy for pancytopenia [...] by Dr. Dickens although then relocated to [place]. Her most recent CBC showed WBC 1.99 with ANC 1.3, resolution of anemia, stable thrombocytopenia at 54K. his CMP profile is otherwise unremarkable with normal liver function tests. Her most recent ultrasound of the abdomen show enlarged spleen measuring 21 x 12.6 x 17.3 cm. NormalDoppler floor within the splenic artery and vein. PMH PSH Past Medical History: Diagnosis Date [...] TONSILLECTOMY ??? WRIST SURGERY Right after fracture CURRENT MEDICATIONS PRIOR TO ADMISSION MEDICATIONS furosemide, ??? levothyroxine, ??? magnesium oxide, ??? mometasone-formoterol, ??? ondansetron (PF), ??? pantoprazole, ??? sertraline, ??? spironolactone, ??? traZODone, (Not in a hospital admission) ALLERGIES Allergies Allergen Reactions ??? Morphine Anaphylaxis ??? Sulfa (Sulfonamide Antibiotics) Anaphylaxis ??? Tylenol [Acetaminophen] Other (See Comments) Contraindication with medical hx ??? Flagyl [Metronidazole] Other (See Comments) Fatigue ??? Aspirin Other (See Comments) Contraindication with medical hx ??? Injectafer [Ferric Carboxymaltose] ??? Lyrica [Pregabalin] Anxiety Insomnia ??? Reglan [Metoclopramide Hcl] Rash SOCIAL HISTORY FAMILY HISTORY Social History Tobacco Use ??? Smoking status: Former Smoker Packs/day: 0.25 Years: 35.00 Pack years: 8.75 Types: Cigarettes Quit date: 04/09/2021 Years since quittin.0 ??? Smokeless tobacco: Never Used ??? Tobacco comment: currently a few per week Substance Use Topics ??? Alcohol use: No Alcohol/week: 0.0 standard drinks Family History Problem Relation Age of Onset ??? Cancer Maternal Grandmother skin ??? Diabetes Mother ??? Coronary Artery Disease Father ??? Clotting Disorder Father ??? Diabetes Brother REVIEW OF SYSTEMS: A complete 10 point review of systems was performed and is otherwise negative. OBJECTIVE: Temp: [36.7 ??C (98.1 ??F)-36.9 ??C (98.4 ??F)] , Pulse: [110] , Resp: [8-24] , BP: (84-126)/(40-109) , SpO2: [87 %-100 %] General appearance: Awake, alert, oriented x3, NAD. Skin: No rashes or lesions. HEENT: Normocephalic, atraumatic, conjunctivae/corneas clear. Lungs: clear to auscultation bilaterally Heart: regular rate and rhythm, no murmur, click, rub or gallop Abdomen: soft, tender in RUQ, non-distended; bowel sounds present. Extremities: no edema, brawn discoloration, 2+ DP. Neuro: no facial asymmetry, moves all extremities Data Review Recent Labs 04/22/21232004/23/21 0537 WBC 2.79* 2.64* HGB 12.7 11.1* HCT 36.9 33.5* PLT 45* 43* Recent Labs 04/22/212320 DIFFTYPE Auto NEUTROABS 2.25 LYMPHSABS 0.26* MONOSABS 0.21 EOSABS 0.05 Recent Labs 04/22/21232004/23/21 0536 NA 138 134* K 4.3 3.8 CL 103 100 CO2 25 23 BUN 18 17 CREATININE 1.30* 1.16* Recent Labs 04/22/21232004/23/21 0536 ALKPHOS 69 61 AST 28 37 ALT 16 19 TBIL 0.9 0.9 TP 7.3 -- LABALBU 4.2 -- LIPASE 75 -- No results for input(s): PROTIME, INR, PTT in the last 72 hours. Recent Labs 04/22/21 2321 04/23/21 0536 AST 28 37 ALT 16 19 No results for input(s): BILIRUBIN in the last 72 hours. No results found for: SPEP, UPEP Lab Results Component Value Date FERRITIN 161 06/05/2020 Imaging: CTA A/P - 04/22/21 1. No abdominal aortic aneurysm or dissection. [...] thickening. 4. Colonic diverticulosis. 5. Prior hysterectomy. CT PE - 04/13/21 1. No evidence of pulmonary embolism. 2. Mildly prominent mediastinal lymph nodes, similar to March 2020. Assessment: Tara Boothe is a 60 y.o. female with a PMHx significant for QUIROZ cirrhosis w/ portal vein thrombosis, hypersplenism, pancytopenia, hypothyroidism, HUEY, COPD, and chronic back pain here with acuteRUQ abdominal pain possibly 2/2 acute extension of chronic portal-splenic vein thrombosis but not occlusion was initiated on heparin gtt on 04/22 is overall doing well but with persistent pain and normal transaminase enzymes (expected in cirrhosis). From heme perspective it is not uncommon to see extension of portal vein thrombosis and with activesymptoms it is reasonable to anticoagulate her as she will be always at risk for VTE or recurrence in setting of cirrhosis. However, in presence of cirrhosis, fluctuating renal function with CKD stage III and thrombocytopaenia makes things limited in terms of anticoagulation agents and if it is allsafe to be on anticoagulation. At this point the risks outweigh the benefits of full dose anticoagulation but is reasonable to trial DVT PPx with lovenox 40 mg daily for indefinite period of time (only if plt >30k) and okay to use in early stage CKD (GFR >40ml/hr). Recommendations: -Transition to Lovenox 40 mg daily. -Monitor CBC 1 week after discharge to r/o HIT. -US arterial doppler and PVR of BL LE as she was c/o of claudication. -F/U with Dr. Paige in 1-2 months. I placed the f/u referral. Patient was seen/discussed with the attending Dr. Lan Heme will sign off. Please call with any questions. Thank you for involving us in the care of this patient. We will continue to follow along with you. MEME MUNOZ MD 04/23/2021 9:58 Attestation statement: I saw and examined the patient with the resident/fellow. I agree with the findings and plan of care documented in the resident's/fellow's note. Ryan Lan MD Hematology Attending documented in this encounter ED Notes * Dana Arroyo RN - 04/23/2021 0923 EDT Pt unable to take PO as it increases pain and nausea. IV zofran administered, but pt still refusingPO meds. MD Padilla paged for IV meds. * Dom Styles RN - 04/23/2021 0428 EDT Ambulated to bathroom without difficulty. Reports BLE numbness with ambulation. DP/PT pulses palpable. No change in discoloration. Denies any needs at this time. * Nayeli Robertson RN - 04/23/2021 0007 EDT RN to bedside; pt in obvious distress, tearful; feet noted to be darkly discolored; stating 10/10 radiating from stomach into back; clutching stomach; pedal pulses palpable bilaterally; provider notified; MD Yeboah to bedside per US * Camila Justice MD - 04/23/2021 0004 EDT I, Betty Archuleta, am scribing for Dr. Justice while he/she is personally performing the service. Betty Archuleta 04/23/2021 0:04 I performed a history and exam of [...] female with a history of cirrhosis of liver, c- difficile infection, partial SBO, COPD, and HUEY?? who presents to the ED for abdominal pain for the past 2-3 days as well as bilateral discoloration of her lower extremities. Limited Abdomen Bedside Ultrasound. Indication: Abdominal pain Findings include No free fluid, aorta not visualized due to bowel gas. The patient had a abdomen CT which was significant for Chronic portal and splenic vein thrombosis worse from previous study. Patient had CT that was obtained, reviewed, and interpreted by myself along with a radiologist. Please see radiology report for further details. 0200: Medicine agreed to admit the patient. 0210: Hematology was regarding heparin gtt in setting of significant thrombocytopenia. Hematology recommended heparin gtt for portal vein/splenic vein thrombosis, follow platelets as inpt. The patient was admitted to Medicine under the care of Dr. Brianne Zepeda Final diagnoses: Portal vein thrombosis This documentation is recorded by Betty Archuleta acting as Scribe under the direction and presence ofCamila Justice MD. Camila Justice MD: I personally performed the services recorded by the scribe in my presence. I confirm the scribe's documentation has been reviewed by me to accurately and completely record my work, treatment, procedures, and medical decision making. * Sharon Willett PA-C - 04/22/2021 2300 EDT This patient received an evaluation and medical screening exam for emergent medical conditions at the [facility] on 04/22/2021 Scribe attestation: This documentation is recorded by Eloy Hatch acting as Scribe under the direction and presence of Sharon Willett PA-C. Ginny Willett PA-C: I personally performed the services recorded by the scribe in my presence. Iconfirm the scribe's documentation has been reviewed by me to accurately and completely record my work, treatment, procedures, and medical decision making. Chief Complaint Abdominal pain. FINA Boothe is a 60 y.o. female with PMH including cirrhosis of liver, c- difficile infection, partial SBO, COPD, and HUEY who presents to the ED for abdominal pain. She reports that her abdominal pain started 2-3 days ago and is worsening. The patient reports that she has had recent episodes of explosive diarrhea. The patient also endorses Bi-lateral discoloration and pain in her lower extremities, described as turing black. The patient notes that the swelling in her lower extremities has been intermittent for some time, but has acutely worsened recently. The patient Stomach surgery (gastric sleeve). The patient reports that she has been off antibiotics for a week. Of note the pat had a CT chest on 04/13 which was negative for any acute finding. History was provided by: The patient, medical records Patient's pertinent PMH, FH, SH were reviewed and updated PRN. ROS Review of Systems Gastrointestinal: Positive for abdominal pain and diarrhea. Musculoskeletal: Positive for myalgias. Skin: Positive for color change. Physical Exam Vital Signs Vitals Reassessment?: Yes Temp: 36.9 ??C (98.4 ??F) Temp src: Oral Pulse: (!) 110 Heart Rate: 77 BPM Resp: 13 SpO2: 97 % BP: 105/64 BP MAP: 75 mm Hg BP Patient Position: Sitting BP Cuff Location: Right arm O2 Device: Nasal cannula Physical Exam Vitals signs and nursing note reviewed. Constitutional: General: She is not in acute distress. Appearance: She is well-developed. She is not diaphoretic. Comments: moderately uncomfortable HENT: Head: Normocephalic and atraumatic. Right Ear: External ear normal. Left Ear: External ear normal. Nose: Nose normal. Eyes: Conjunctiva/sclera: Conjunctivae normal. Neck: Musculoskeletal: Normal range of motion and neck supple. Pulmonary: Effort: Pulmonary effort is normal. No respiratory distress. Breath sounds: Normal breath sounds. No rhonchi or rales. Comments: Lungs wheezy in all lobes, Abdominal: General: There is no distension. Tenderness: There is no guarding or rebound. Comments: diffuse abdominal tenderness Musculoskeletal: Normal range of motion. Comments: Signifcantly tender bilateral calfs. Skin: General: Skin is warm and dry. Comments: darkening pigment color bellow knees , especially the anterior and dorsum of the lower extremities Neurological: Mental Status: She is alert and oriented to person, place, and time. Psychiatric: Behavior: Behavior normal. Laboratory Results Labs Reviewed COMPLETE BLOOD COUNT AND DIFFERENTIAL - Abnormal Result Value Status WBC 2.79 (*) Final RBC 4.39 Final Hemoglobin 12.7 Final HCT 36.9 Final MCV 84 Final MCH 28.9 Final MCHC 34.4 Final RDW-CV 14.4 Final RDW-SD 44.3 Final PLT 45 (*) Final MPV 10.7 Final Neutrophils 80.6 Final Lymphocytes 9.3 Final Monocytes 7.5 Final Eosinophils 1.8 Final Basophils 0.4 Final Immature Grans 0.4 Final Absolute Neutrophils 2.25 Final Absolute Lymphocytes 0.26 (*) Final Absolute Monocytes 0.21 Final Absolute Eosinophils 0.05 Final Absolute Basophils 0.01 Final Absolute Immature Grans 0.01 Final Type of Differential: Auto Final COMPREHENSIVE METABOLIC PANEL (CMP) - Abnormal Sodium 138 Final Potassium 4.3 Final Chloride 103 Final CO2 Total 25 Final Glucose 85 Final BUN 18 Final Creatinine 1.30 (*) Final eGFR 45 (*) Final Total Protein 7.3 Final Albumin 4.2 Final Alkaline Phosphatase 69 Final AST 28 Final ALT 16 Final Bilirubin, Total 0.9 Final Calcium 9.0 Final Calculated Calcium 8.8 Final C REACTIVE PROTEIN - Normal C-Reactive Protein <7.0 Final LACTIC ACID - Normal Lactic Acid 0.9 Final TROPONIN I - Normal Troponin I <0.034 Final Narrative: The results of this assay can be falsely lowered due to the consumption of Biotin. NT PRO BNP - Normal NT-pro BNP 44 Final MAGNESIUM - Normal Magnesium 1.8 Final LIPASE - Normal Lipase 75 Final CK - Normal CK 47 Final COVID-19 TESTING COVID-19 TEST [facility] PCR HOLD BLUE TOP Hold Hold Final HOLD SST Hold Hold Final COMPLETE BLOOD COUNT Data Interpretation Imaging obtained was reviewed and independently interpreted: Imaging Results CT ANGIO ABDOMEN PELVIS (Preliminary result) Result time 04/23/21 03:24:13 Preliminary result Impression: 1. No abdominal aortic aneurysm or dissection. 2. Cirrhotic configuration of the liver with stigmata of portal hypertension including splenomegalyand chronic nonocclusive portal venous thrombosis. The extent of thrombus has increased in comparison to November 2019. The intrahepatic portal venous branches are patent. 3. Unchanged caliber of the biliary tree, status post cholecystectomy. 4. Colonic diverticulosis. 5. Prior hysterectomy. Narrative: PRELIMINARY REPORT CT ANGIO ABDOMEN PELVIS 04/23/2021 12:35 AM SIGNS AND SYMPTOMS/COMMENTS: Patient with excruciating abdominal pain searing into her back. Changes in color in the lower extremities. Patient vomiting TECHNIQUE: Prior to the intravenous injection of contrast media, precontrast CT scans were obtained throughoutthe abdomen and pelvis. Then, utilizing a multislice CT scanner, and following an intravenous bolusinjection of nonionic contrast media, arterial and venous phase CT angiography of the abdomen and pelvis was performed. Scanning was performed from the lower lungs to the lesser trochanters. 3-D reconstructions were performed utilizing the coronal and sagittal MPR, radial CPR, and volume rendering algorithms on an independent work station. COMPARISON: CT renal colic 02/18/2020. CT abdomen pelvis 11/26/2019. ANGIOGRAPHIC FINDINGS: No abdominal aortic aneurysm or dissection. Mild calcific atherosclerosis of the infrarenal abdominal aorta. The celiac, SMA, and SHAVON arteries are widely patent. Bilateral renal arteries are patent. An accessory renal artery is present on the left. The common, external, and internal iliac arteries are patent bilaterally. Redemonstrated dilated portal venous system with nonocclusive filling defect extending from the main portal vein to the splenic vein. The SMV, IMV, and intrahepatic portal venous branches are patent. The major systemic venous drainage pathways are patent. NON-ANGIOGRAPHIC FINDINGS: Lower chest: Mild mosaic attenuation of the lung parenchyma with tiny scattered centrilobular nodules likely smoking related bronchiolitis. Hepatobiliary: Hepatic surface contour is nodular. No focal hepatic lesion. Unchanged biliary ductal prominence, status post cholecystectomy. Spleen, pancreas, adrenal glands: Spleen is massively enlarged. Pancreas, and right adrenal length are normal. Unchanged nodular thickening of the left adrenal. Kidneys, ureters, bladder: Kidneys enhance normally and symmetrically. No hydroureteronephrosis or urinary tract calculi. Bladder is without significant finding. Uterus, ovaries: Prior hysterectomy. No adnexal mass. Bowel: No obstruction or acute inflammatory changes. Colonic diverticulosis. Stomach is decompressed and poorly evaluated. Peritoneal cavity / Subperitoneal space: Trace nonorganized fluid in the pelvis. No fluid collection. No free air. Lymphatic: No lymphadenopathy. Abdominal wall: Prior ventral abdominal hernia repair with surgical mesh on the right. Multiple surgical clips are seen at midline. No bowel-containing hernias. Musculoskeletal: Multilevel degenerative endplate and facet changes. No acute osseous abnormalities. 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 Procedures Procedures ED Course/Medical Decision Making A medical screening was performed. (23:07) Discussed the patient with Dr. Justice. Dr. Justice evaluated the patient as well and felt she warranted a CT angio gram to ensure there is good perfusion. (00:00) RN reports that the patint is having excrutiating abdominal pain radiating to her back. Thedecison was made to order her CT abdomen and CTA of the chest, prior to creatine lab results. Dr. Justice did a bedside ultrasound to ensure there is no emergent concerns for the aorta. Following CT angio:Patient was found to have a large thrombosis in both her portal vein and splenic. Patient was ultimately admitted to vascular via Dr. Justice. Patient admitted. Clinical Impression Final diagnoses: Portal vein thrombosis Disposition Admitted The patient's pain was managed to an adequate level weighing risk vs. benefit of further medications. Any further pain treatment will be at the discretion of the provider following up with the patient based on their clinical assessment. While under my care in the Emergency Department, the patient's pain was managed to an adequate level weighing risk vs. benefit of medication. Dr. Justice was available for supervision. * Nicolás Morales RN - 04/22/2021 2201 EDT Pt arrived at triage telling me that her pain was bad and that even using her oxygen was not helping. She had no oxygen on. She had a O2 sat of 87. I put her on oxygen and her O2 sat cam up to 98 and her,RR decreased to 18 from 22. documented in this encounter Miscellaneous Notes * Plan of Care - Ayesha Evans RN - 04/25/2021 0326 EDT Problem: Daily Care Plan Goals Goal: Care Plan Documentation Flowsheets (Taken 04/24/20212032) Area of Focus: Pain/ Comfort Goal This Shift: Pt will report pain a 5 or less on a 0-10 scale Data: Pt A&Ox3 and independent; admitted with portal vein thrombosis. Complaining of 9/10 rightupper abdominal pain throughout the night along with severe itching in her bilateral legs and occasional nausea. Action: Covering MD notified about itching and pt's request for medication for it because she wanted to rip her skin off and lotion and walking were not working. An order for atarax x 1 was obtained and administered. Dilaudid was given q4h for the pain along with a heat pack for pt's stomach. Zofran and gingerale given for nausea. Emotional support provided. Response: Pt awake all night with the exception of between 2300 and 2345. Restless legs, itching, and pain kept her awake. Ambulated the halls frequently. She states that the pain is worse than normal tonight and only went down to an 8 after medication and was a 9 a majority of the time. VSS on room air. She also reports some anxiety about learning how to give herself Lovenox injections later today and going home. AYESHA EVANS RN 04/25/2021 3:26 * Plan of Care - Paola Wolf RN - 04/24/2021 0644 EDT Problem: Daily Care Plan Goals Goal: Care Plan Documentation Flowsheets (Taken 04/23/2021 2030) Area of Focus: Pain/ Comfort Goal This Shift: Pain will be tolerable for patient Data: Assumed care at 1900. Patient had loose/ soft bowel movement at change of shift. Also continent of ange urine. Reports right upper quadrant abdominal pain. Diet recently change to NPO except medications due to severe abdominal pain following meal. Patient informed of NPO status and verbalizes understanding. Per change of shift reports MD decided to hold off on initiating IV fluids for now. Action: Medications given per JAN. PO medications given with sip of water. PRN dilaudid and Zofran given as requested by patient, ordered Q4 PRN. Vital sign checks Q4 hours, WNL. Response: Slept intermittently throughout the night. Sleeps after receiving pain medication. When awake patient rates pain 7-9/10. Ambulates in hallway. Hourly rounds ongoing. PAOLA WOLF RN 04/23/2021 20:57 * Plan of Care - Katherin Hylton RN - 04/23/2021 1820 EDT Problem: Daily Care Plan Goals Goal: Care Plan Documentation Outcome: Ongoing Flowsheets (Taken 04/23/2021 1350) Area of Focus: Pain/ Comfort Goal This Shift: pt will report tolerable pain level Data: Admitted to floor @ 1230 with portal vein thrombosis, on heparin gtt. Education provided to refrain from eating d/t abdominal pain, offered broth when patient insisted. Patient ordered half sandwich. + nausea post lunch, resolved with zofran. @ 1530, pt reported blood in urine, UA ordered. @1730, pt reported RUQ pain 7/10, stating it was tolerable. At this time, dinner arrived. Ate 100% : pot roast/gravy, rice, spinach, salad, custard, grapes. Following dinner pain increased to 9/10, prn dilaudid given. Action: Medicated per JAN. Heparin gtt stopped per order. Lovenox administered. Hourly rounds completed with needs addressed. Response: Patient resting in bed. VSS on RA. KATHERIN HYLTON RN 04/23/2021 18:21 * Plan of Care - Raghav Pizarro MD - 04/23/2021 0213 EDT Hematology plan of care This is a case of a 60-year-old female who was previously seen by hematology for known history of pancytopenia in the setting of liver cirrhosis and hypersplenism, presenting to the emergency department with significant worsening of right upper quadrant pain. CT abdomen pelvis showed worsening of a chronic portal vein thrombosis. The patient's CBC today showed a platelet count of 45,000 which seems to be consistent with the patient's baseline. Further abdominal pain that could be related to her portal vein thrombosis this patient needs to beanticoagulated. We can start her on a heparin drip with the current platelet count and monitor closely for signs ofbleeding. Obviously, she will need to be admitted to the medicine service, CBC repeat needs to be done daily.Would start heparin drip overnight and hematology will see her for a full consult in the morning. This case was discussed with Dr. Lan Cosigned by Ryan Lan MD at 04/23/2021 9:29 EDT documented in this encounter Plan of Treatment Upcoming Encounters Date Type Department Care Team (Late st Contact Info) Description 01/04/2025 13:00 EST Office Visit [facility] Ophthalmology - [address] [address] Gagandeep Rome MD [address] [place] [address], [address] [place] [phone] 02/11/2025 13:30 EDT Telemedicine [facility] H[facility] & Oncology - [facility] [address] [place] [address] Dana Padilla MD [address] [facility], [facility] [place], [address] [place] [phone] documented as of this encounter Procedures Procedure Name Priority Date/Time Associated Diagnosis Comments COMPLETE BLOOD COUNT Routine 04/24/2021 9:16 EDT CREATININE Routine 04/24/2021 9:16 EDT ELECTROLYTES Routine 04/24/2021 9:16 EDT ECG REPORT - SCANNED 04/23/2021 11:33 EDT HEPARIN LEVEL - UNFRACTIONATED HEPARIN STAT 04/23/2021 9:09 EDT COMPLETE BLOOD COUNT Routine 04/23/2021 5:37 EDT BUN Routine 04/23/2021 5:36 EDT ALT Routine 04/23/2021 5:36 EDT AST Routine 04/23/2021 5:36 EDT ALKALINE PHOSPHATASE Routine 04/23/2021 5:36 EDT CREATININE Routine 04/23/2021 5:36 EDT BILIRUBIN, TOTAL Routine 04/23/2021 5:36 EDT ELECTROLYTES Routine 04/23/2021 5:36 EDT ZZCOVID-19 TEST [facility] PCR Today 04/23/2021 2:15 EDT COVID-19 TESTING Routine 04/23/2021 2:[address] ANGIO ABDOMEN PELVIS STAT 04/23/20 21 0:52 EDT EKG 12-LEAD STAT 04/22/2021 23:27 EDT HOLD SST Routine 04/22/2021 23:22 EDT HOLD BLUE TOP Routine 04/22/2021 23:21 EDT TROPONIN I STAT 04/22/2021 23:21 EDT LACTIC ACID STAT 04/22/2021 23:21 EDT COMPLETE BLOOD COUNT AND DIFFERENTIAL STAT 04/22/2021 23:21 EDT C REACTIVE PROTEIN STAT 04/22/2021 23 :21 EDT NT PRO BNP STAT 04/22/2021 23:21 EDT MAGNESIUM STAT 04/22/2021 23:21 EDT LIPASE STAT 04/22/2021 23:21 EDT CK STAT 04/22/2021 23:21 EDT COMPREHENSIVE METABOLIC PANEL (CMP) STAT 04/22/2021 23:21 EDT documented in this encounter Results * (ABNORMAL) COMPLETE BLOOD COUNT (04/24/2021 9:16 EDT) WBC 1.92(L) 4.00 - 12.40 K/cmm 04/24/2021 11:02 EDT [facility] RBC 4.03 3.86 - 5.04 M/cmm 04/24/2021 11:02 EDT [facility] Hemoglobin 11.3(L) 11.6 - 15.2 gm/dL 04/24/2021 11:02 EDT [facility] HCT 34.1(L) 34.9 - 44.4 % 04/24/2021 11:02 EDT [facility] MCV 85 81 - 98 fl 04/24/2021 11:02 EDT [facility] MCH 28.0 26.7 - 33.3 pg 04/24/2021 11:02 EDT [facility] MCHC 33.1 32.1 - 35.9 gm/dL 04/24/2021 11:02 EDT [facility] RDW-CV 14.6 <14.7 % 04/24/2021 11:02 EDT [facility] RDW-SD 44.7 <50.4 fl 04/24/2021 11:02 EDT [facility] PLT 38(L) 141 - 377 K/cmm 04/24/2021 11:02 T [facility] MPV 10.3 9.5 - 12.7 fl 04/24/2021 11:02 EDT [facility] Blood VENOUS BLOOD / Unknown Venipuncture / Unknown 04/24/2021 9:16 EDT 04/24/2021 10:41 EDT Kiana Love MD HEMATOLOGY & PF4 ORDERABLES Final Result [facility] [address] [place] [address] * (ABNORMAL) CREATININE (04/24/2021 9:16 EDT) Creatinine 1.18(H) 0.52 - 1.04 mg/dL 04/24/2021 11:33 EDT [facility] eGFR 50(L) >60 mL/min/1.7 3m2 04/24/2021 11:33 EDT [facility] Comment:eGFR calculated lobito coppola CKD-EPI equation for non- Americans. Multiply eGFR by 1.16 for patients. Blood VENOUS BLOOD / Unknown Venipuncture / Unknown 04/24/2021 9:16 EDT 04/24/2021 10:41 EDT Kiana Love MD CHEMISTRY & BLOOD GAS ORDERA BLES Final Result Performing Organization Address City/[facility]/ZIP Co de Phone Number [facility] [address] [place] [address] * ELECTROLYTES (04/24/2021 9:16 EDT) Sodium 138 136 - 145 mEq/L 04/24/2021 11:33 EDT [facility] Potassium 4.2 3.5 - 5.0 mEq/L 04/24/2021 11:33 EDT [facility] Chloride 103 96 - 110 mEq/L 04/24/2021 11:33 EDT [facility] CO2 Total 23 22 - 32 mEq/L 04/24/2021 11:33 EDT [facility] Blood VENOUS BLOOD / Unknown Venipuncture / Unknown 04/24/2021 9:16 EDT 04/24/2021 10:41 EDT us Kiana Love MD CHEMISTRY & BLOOD GAS ORDERA BLES Final Result Performing Organization Address [facility] Co de Phone Number [facility] [address] [place] [address] * ECG REPORT - SCANNED (04/23/2021 11:33 EDT) 04/23/2021 11:3 3 EDT us Scan 2 Siding Coreboard Inspector PROCEDURE/MINOR SURGICAL OR DERABLES Final Result * HEPARIN LEVEL - UNFRACTIONATED HEPARIN (04/23/2021 9:09 EDT) Heparin Level-UFH 0.46 Therapeutic Range: 0.30 - 0.70 IU/mL 04/23/2021 9:22 EDT [facility] Comment:Unfractionated hepar in therapeutic range = 0.3-0.7 IU/ml - This test is not intended for monitoring direct Xa inhibitors, direct thrombin inhibitors, or fondaparinux.- Exogenous ATIII is NOT supplied in this assay. For unexpected or persistently low levels, consider measuring patient's ATIII level. Results will be overestimated in the presence of direct Xa inhibitors (rivaroxaban, apixaban, edoxaban). Blood VENOUS BLOOD / Unknown Venipuncture / Unknown 04/23/2021 9:09 EDT 04/23/2021 9:11 EDT us Deepti Peterson MD HEMATOLOGY & PF4 ORDERABL ES Final Result [facility] [address] [place] [id number] * (ABNORMAL) COMPLETE BLOOD COUNT (04/23/2021 5:37 EDT) WBC 2.64(L) 4.00 - 12.40 K/cmm 04/23/2021 5:58 EDT [facility] RBC 3.85(L) 3.86 - 5.04 M/cmm 04/23/2021 5:58 [facility] Hemoglobin 11.1(L) 11.6 - 15.2 gm/dL 04/23/2021 5:58 [facility] HCT 33.5(L) 34.9 - 44.4 % 04/23/2021 5:58 [facility] MCV 87 81 - 98 fl 04/23/2021 5:58 [facility] MCH 28.8 26.7 - 33.3 pg 04/23/2021 5:58 [facility] MCHC 33.1 32.1 - 35.9 gm/dL 04/23/2021 5:58 [facility] RDW-CV 14.6 <14.7 % 04/23/2021 5:58 [facility] RDW-SD 45.6 <50.4 fl 04/23/2021 5:58 [facility] PLT 43(L) 141 - 377 K/cmm 04/23/2021 5:58 [facility] MPV 10.6 9.5 - 12.7 fl 04/23/2021 5:58 [facility] Blood VENOUS BLOOD / Unknown Venipuncture / Unknown 04/23/2021 5:37 EDT 04/23/2021 5:46 EDT us Kiana Love MD HEMATOLOGY & PF4 ORDERABLES Final Result Performing Organization Address [facility]/ZIP Co de Phone Number [facility] [address] [place] [address] * BILIRUBIN, TOTAL (04/23/2021 5:36 EDT) Bilirubin, Total 0.9 <1.4 mg/dL 04/23/2021 6:20 EDT [facility] Blood VENOUS BLOOD / Unknown Venipuncture / Unknown 04/23/2021 5:36 EDT 04/23/2021 5:50 EDT us Kiana Love MD CHEMISTRY & BLOOD GAS ORDERA BLES Final Result Performing Organization Address [facility]/ZIP Co de Phone Number [facility] [address] [place] [address] * ALKALINE PHOSPHATASE (04/23/2021 5:36 EDT) Alkaline Phosphatase 61 38 - 126 U/L 04/23/2021 6:20 EDT [facility] Blood VENOUS BLOOD / Unknown Venipuncture / Unknown 04/23/2021 5:36 EDT 04/23/2021 5:50 EDT us Kiana Love MD CHEMISTRY & BLOOD GAS ORDERA BLES Final Result [facility] [address] [place] [address] * AST (04/23/2021 5:36 EDT) AST 37 15 - 46 U/L 04/23/2021 6:20 EDT [facility] Blood VENOUS BLOOD / Unknown Venipuncture / Unknown 04/23/2021 5:36 EDT 04/23/2021 5:50 EDT Kiana Love MD CHEMISTRY & BLOOD GAS ORDERA BLES Final Result [facility] [address] [place] [address] * ALT (04/23/2021 5:36 EDT) ALT 19 <35 U/L 04/23/2021 6:20 EDT [facility] Blood VENOUS BLOOD / Unknown Venipuncture / Unknown 04/23/2021 5:36 EDT 04/23/2021 5:50 EDT Kiana Love MD CHEMISTRY & BLOOD GAS ORDERA BLES Final Result Performing Organization Address [facility] Co de Phone Number [facility] [address] [place] [address] * (ABNORMAL) CREATININE (04/23/2021 5:36 EDT) Creatinine 1.16(H) 0.52 - 1.04 mg/dL 04/23/2021 6:20 EDT [facility] eGFR 51(L) >60 mL/min/1.7 3m2 04/23/2021 6:20 EDT [facility] Comment:eGFR calculated lobito coppola CKD-EPI equation for non- Americans. Multiply eGFR by 1.16 for patients. Blood VENOUS BLOOD / Unknown Venipuncture / Unknown 04/23/2021 5:36 EDT 04/23/2021 5:50 EDT Kiana Love MD CHEMISTRY & BLOOD GAS ORDERA BLES Final Result Performing Organization Address [facility]/ZIP Co de Phone Number [facility] [address] [place] [address] * BUN (04/23/2021 5:36 EDT) BUN 17 10 - 26 mg/dL 04/23/2021 6:20 EDT [facility] Blood VENOUS BLOOD / Unknown Venipuncture / Unknown 04/23/2021 5:36 EDT 04/23/2021 5:50 EDT Kiana Love MD CHEMISTRY & BLOOD GAS ORDERA BLES Final Result Performing Organization Address [facility]/ZIP Co de Phone Number [facility] [address] [place] [address] * (ABNORMAL) ELECTROLYTES (04/23/2021 5:36 EDT) Sodium 134(L) 136 - 145 mEq/L 04/23/2021 6:20 EDT [facility] Potassium 3.8 3.5 - 5.0 mEq/L 04/23/2021 6:20 EDT [facility] Chloride 100 96 - 110 mEq/L 04/23/2021 6:20 EDT [facility] CO2 Total 23 22 - 32 mEq/L 04/23/2021 6:20 EDT [facility] Blood VENOUS BLOOD / Unknown Venipuncture / Unknown 04/23/2021 5:36 EDT 04/23/2021 5:50 EDT Kiana Love MD CHEMISTRY & BLOOD GAS ORDERA BLES Final Result Performing Organization Address [facility]/ZIP Co de Phone Number [facility] [address] [place] [address] * COVID-19 TEST [facility] PCR (04/23/2021 2:15 EDT) Swab ENTIRE NASOPHARYNX / Unknown Swab / Unknown 04/23/2021 2:15 EDT 04/23/2021 2:17 EDT us Sharon Willett PA-C MICROBIOLOGY - GENERAL ORDERABLES Final Result [facility] [address] [place] [address] * COVID-19 TESTING (04/23/2021 2:15 EDT) COVID-19 rt-PCR Result Negative Negative 04/23/2021 3:50 EDT [facility] Performing Lab GeneXpert [facility] 04/23/2021 3:50 EDT [facility] Swab ENTIRE NASOPHARYNX / Unknown Swab / Unknown 04/23/2021 2:15 EDT 04/23/2021 2:17 EDT Sharon Willett PA-C MICROBIOLOGY - GENERAL ORDERABLES Final Result [facility] [address] [place] [address] * CT ANGIO ABDOMEN PELVIS (04/23/2021 0:52 EDT) Anatomical Region Laterality Modality Body, Abdomen, Pelvis, Abdomen and Pelvis Computed Tomography 04/23/2021 9:43 EDT Impressions 04/23/2021 9:43 EDT 1. ??No abdominal aortic aneurysm or dissection. 2. ??Cirrhotic configuration of the liver with stigmata of portal hypertension including splenomegaly and chronic nonocclusive portal venous thrombosis. The extent of thrombus has increased in comparison to November 2019. The intrahepatic portal venous branches are patent. 3. ??Very subtle findings of inflammation on a few images immediately anterior to the head of the pancreas, possibly suggestive of very early pancreatitis or inflammation of the duodenum although there is no evidence of duodenal bowel wall thickening. 4. ??Colonic diverticulosis. 5. ??Prior hysterectomy. Findings were discussed with Dr. Saida Peterson by Dr. Bobby Greenberg following the exam. I have personally reviewed the images and the above interpretation and agree with the findings. Narrative 04/23/2021 9:[address] ANGIO ABDOMEN PELVIS ??04/23/2021 12:35 AM SIGNS AND SYMPTOMS/COMMENTS: Patient with excruciating abdominal pain searing into her back. ??Changes in color in the lower extremities. ??Patient vomiting TECHNIQUE: Prior to the intravenous injection of contrast media, precontrast CT scans were obtained throughout the abdomen and pelvis. Then, utilizing a [...] rendering algorithms on an independent work station. COMPARISON: CT renal colic 02/18/2020. CT abdomen pelvis 11/26/2019. ANGIOGRAPHIC FINDINGS: No abdominal aortic aneurysm or dissection. Mild calcific atherosclerosis of the infrarenal abdominal aorta. The celiac, SMA, and SHAVON arteries are widely patent. Bilateral renal arteries are patent. An accessory renal artery is present on the left. The right renal artery demonstrates very subtle findings of narrowing in ectasia possibly consistent with fibromuscular dysplasia. Findings are not optimally appreciated on this exam further consideration for catheter directed angiography should be given if patient has a history of medically resistant hypertension. The common, external, and internal iliac arteries are patent bilaterally. Redemonstrated dilated portal venous system with nonocclusive filling defect extending from the main portal vein to the splenic vein. The SMV, IMV, and intrahepatic portal venous branches are patent. There appears to be at least a small splenorenal shunt on the left. Additionally, much of the portal venous hypertension decompresses by way of the anterior abdominal venous drainage into the common iliac veins bilaterally. The major systemic venous drainage pathways are patent. NON-ANGIOGRAPHIC FINDINGS: Lower chest: Mild mosaic attenuation of the lung parenchyma with tiny scattered centrilobular nodules likely smoking related bronchiolitis. Hepatobiliary: Hepatic surface contour is nodular. No focal hepatic lesion. Unchanged biliary ductal prominence, status post cholecystectomy. Spleen, pancreas, adrenal glands: Spleen is massively enlarged. Pancreas, and right adrenal length are normal. Unchanged nodular thickening of the left adrenal. Kidneys, ureters, bladder: Kidneys enhance normally and symmetrically. No hydroureteronephrosis or urinary tract calculi. Bladder is without significant finding. Uterus, ovaries: Prior hysterectomy. No adnexal mass. Bowel: No obstruction or acute inflammatory changes. Colonic diverticulosis. Stomach is decompressed and poorly evaluated. The stomach and antral wall is slightly prominent, but the study is not optimized to evaluate for bowel wall thickening. Very subtle evidence of inflammation is evident anterior to the head of the pancreas as seen on images 112 through 114 on the venous phase series. No evidence of adjacent free fluid is noted. Peritoneal cavity / Subperitoneal space: Trace nonorganized fluid in the pelvis. No fluid collection. No free air. Lymphatic: No lymphadenopathy. Abdominal wall: Prior ventral abdominal hernia repair with surgical mesh on the right. Multiple surgical clips are seen at midline. No bowel-containing hernias. Musculoskeletal: Multilevel degenerative endplate and facet changes. No acute osseous abnormalities. 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 Procedure Note Bobby Greenberg MD - 04/23/2021 CT ANGIO ABDOMEN PELVIS 04/23/2021 12:35 AM SIGNS AND SYMPTOMS/COMMENTS: Patient with excruciating abdominal pain searing into her back. Changesin color in the lower extremities. Patient vomiting TECHNIQUE: Prior to the intravenous injection of contrast media, precontrast CT scanswere obtained throughout the abdomen and pelvis. Then, utilizing amultislice CT scanner, and following an intravenous bolus injection ofnonionic contrast media, arterial and venous phase CT angiography of theabdomen and pelvis was performed. Scanning was performed from the lowerlungs to the lesser trochanters. 3-D reconstructions were performedutilizing the coronal and sagittal MPR, radial CPR, and volume renderingalgorithms on an independent work station. COMPARISON: CT renal colic 02/18/2020. CT abdomen pelvis 11/26/2019. ANGIOGRAPHIC FINDINGS: No abdominal aortic aneurysm or dissection. Mild calcific atherosclerosisof the infrarenal abdominal aorta. The celiac, SMA, and SHAVON arteries arewidely patent. Bilateral renal arteries are patent. An accessory renalartery is present on the left. The right renal artery demonstrates verysubtle findings of narrowing in ectasia possibly consistent withfibromuscular dysplasia. Findings are not optimally appreciated on thisexam further consideration for catheter directed angiography should begiven if patient has a history of medically resistant hypertension. The common, external, and internal iliac arteries are patentbilaterally. Redemonstrated dilated portal venous system with nonocclusive fillingdefect extending from the main portal vein to the splenic vein. The SMV,IMV, and intrahepatic portal venous branches are patent. There appears rodríguez at least a small splenorenal shunt on the left. Additionally, much ofthe portal venous hypertension decompresses by way of the anteriorabdominal venous drainage into the common iliac veins bilaterally. The major systemic venous drainage pathways are patent. NON-ANGIOGRAPHIC FINDINGS: Lower chest: Mild mosaic attenuation of the lung parenchyma with tinyscattered centrilobular nodules likely smoking related bronchiolitis. Hepatobiliary: Hepatic surface contour is nodular. No focal hepaticlesion. Unchanged biliary ductal prominence, status postcholecystectomy. Spleen, pancreas, adrenal glands: Spleen is massively enlarged. Pancreas,and right adrenal length are normal. Unchanged nodular thickening of theleft adrenal. Kidneys, ureters, bladder: Kidneys enhance normally and symmetrically. Nohydroureteronephrosis or urinary tract calculi. Bladder is withoutsignificant finding. Uterus, ovaries: Prior hysterectomy. No adnexal mass. Bowel: No obstruction or acute inflammatory changes. Colonicdiverticulosis. Stomach is decompressed and poorly evaluated. The stomachand antral wall is slightly prominent, but the study is not optimized toevaluate for bowel wall thickening. Very subtle evidence of inflammationis evident anterior to the head of the pancreas as seen on images 112through 114 on the venous phase series. No evidence of adjacent free fluidis noted. Peritoneal cavity / Subperitoneal space: Trace nonorganized fluid in thepelvis. No fluid collection. No free air. Lymphatic: No lymphadenopathy. Abdominal wall: Prior ventral abdominal hernia repair with surgical meshon the right. Multiple surgical clips are seen at midline. Nobowel-containing hernias. Musculoskeletal: Multilevel degenerative endplate and facet changes. Noacute osseous abnormalities. 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 IMPRESSION 1. No abdominal aortic aneurysm or dissection. 2. Cirrhotic configuration of the liver with stigmata of portalhypertension including splenomegaly and chronic nonocclusive portal venousthrombosis. The extent of thrombus has increased in comparison to November2019. The intrahepatic portal venous branches are patent. 3. Very subtle findings of inflammation on a few images immediatelyanterior to the head of the pancreas, possibly suggestive of very earlypancreatitis or inflammation of the duodenum although there is no evidenceof duodenal bowel wall thickening. 4. Colonic diverticulosis. 5. Prior hysterectomy. Findings were discussed with Dr. Saida Peterson by Dr. Bobby Greenbergfollowing the exam. I have personally reviewed the images and the above interpretation andagree with the findings. us Sharon Willett PA-C IMG CT ORDERABLES Final Result * EKG 12-LEAD (04/22/2021 23:27 EDT) 04/22/2021 23:2 7 EDT Narrative [facility] EKG - 04/23/2021 11:28 EDT ?[facility] ? Test Date: ?2021-04-22 Pat Name: ? PHYLISS BOOTHE ?Department: ?? ED ? Room: ? GT39 Gender: ? Female ? 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 : ?1960 ? Requested By: BRENNON Leonardo Order Number: [id number] ? Reading MD: ?? JOHNNIE BLUE MD ? Measurements Intervals ?[place] ? Rate: ? 74 ? P: ?56 AR: ? 155 ?QRS: ?58 QRSD: ? 89 ? T: ?30 QT: ? 388 ? QTc: ?433 ? Interpretive Statements SINUS RHYTHM I reviewed the tracing and have either agreed or edited the findings in this report. Electronically Signed On 04-23-2021 11:28:20 EDT by JOHNNIE BLUE MD. Procedure Note Johnnie Blue MD - 04/23/2021 [facility] Test Date: 2021-04-22 Pat Name: TARA BOOTHE Department: ED Room: [facility] Gender: Female Lottery Office Manager: : 1960 Requested By: BRENNON Leonardo Order Number: [id number] Reading MD: JOHNNIE BLUE MD Measurements Intervals [place] Rate: 74 P: 56 AR: 155 QRS: 58 QRSD: 89 T: 30 QT: 388 QTc: 433 Interpretive Statements SINUS RHYTHM I reviewed the tracing and have either agreed or edited the findings inthis report. Electronically Signed On 04-23-2021 11:28:20 EDT by JOHNNIE HUANG. Sharon Willett PA-C CARDIAC ECG ORDERABLES Final Result [facility] EKG * HOLD SST (04/22/2021 23:22 EDT) Hold Hold 04/23/2021 0:30 EDT [facility] Blood VENOUS BLOOD / Unknown Venipuncture / Unknown 04/22/2021 23:22 EDT 04/22/2021 23:24 EDT us Sharon A Brennon PA-C LAB INFO SERVICE AND [place] PPORT & PHONE RESULT Final Result [facility] [address] [place] [address] * CK (04/22/2021 23:21 EDT) CK 47 30 - 135 U/L 04/22/2021 23:40 EDT [facility] Blood VENOUS BLOOD / Unknown Venipuncture / Unknown 04/22/2021 23:21 EDT 04/22/2021 23:24 EDT us Sharon A Brennon PA-C CHEMISTRY & BLOOD GAS O RDERABLES Final Result Performing Organization Address City/[facility]/ZIP Co de Phone Number [facility] [address] [place] [address] * HOLD BLUE TOP (04/22/2021 23:21 EDT) Hold Hold 04/23/2021 0:30 EDT [facility] Blood VENOUS BLOOD / Unknown Venipuncture / Unknown 04/22/2021 23:21 EDT 04/22/2021 23:24 EDT us Sharon A Brennon PA-C LAB INFO SERVICE AND [place] PPORT & PHONE RESULT Final Result [facility] [address] [place] [address] * LIPASE (04/22/2021 23:21 EDT) Lipase 75 <251 U/L 04/22/2021 23:41 EDT [facility] Blood VENOUS BLOOD / Unknown Venipuncture / Unknown 04/22/2021 23:21 EDT 04/22/2021 23:24 EDT us Sharon A [place] PA-C CHEMISTRY & BLOOD GAS O RDERABLES Final Result [facility] [address] [place] [address] * MAGNESIUM (04/22/2021 23:21 EDT) Pathologist [facility] Magnesium 1.8 1.7 - 2.8 mg/dL 04/22/2021 23:41 EDT [facility] Blood VENOUS BLOOD / Unknown Venipuncture / Unknown 04/22/2021 23:21 EDT 04/22/2021 23:24 EDT Sharon Simentalbrook PA-C CHEMISTRY & BLOOD GAS O RDERABLES Final Result Performing Organization Address City/[facility]/ZIP Co de Phone Number [facility] [address] [place] [address] * NT PRO BNP (04/22/2021 23:21 EDT) [facility] NT-pro BNP 44 <125 pg/mL 04/22/2021 23:50 EDT [facility] Comment:The results of this assay can be falsely lowered due to consumption of Biotin. Blood VENOUS BLOOD / Unknown Venipuncture / Unknown 04/22/2021 23:21 EDT 04/22/2021 23:24 EDT Sharon Joseok PA-C CHEMISTRY & BLOOD GAS O RDERABLES Final Result [facility] [address] [place] [address] * TROPONIN I (04/22/2021 23:21 EDT) [facility] Troponin I (ng/mL) <0.034 <0.034 ng/mL 04/22/2021 23:50 EDT [facility] Blood VENOUS BLOOD / Unknown Venipuncture / Unknown 04/22/2021 23:21 EDT 04/22/2021 23:24 EDT Narrative [facility] - 04/22/2021 23:50 EDT The results of this assay can be falsely lowered due to the consumption of Biotin. us Sharon A [place] PA-C CHEMISTRY & BLOOD GAS O RDERABLES Final Result Performing Organization Address City/[facility]/ZIP Co de Phone Number [facility] [address] [place] [address] * LACTIC ACID (04/22/2021 23:21 EDT) Lactic Acid 0.9 <=2.0 mmol/L 04/22/2021 23:41 EDT [facility] Blood VENOUS BLOOD / Unknown Venipuncture / Unknown 04/22/2021 23:21 EDT 04/22/2021 23:24 EDT us Sharon A [place] PA-C CHEMISTRY & BLOOD GAS O RDERABLES Final Result Performing Organization Address [facility] Co de Phone Number [facility] [address] [place] [address] * C REACTIVE PROTEIN (04/22/2021 23:21 EDT) C-Reactive Protein <7.0 <10.0 mg/L 04/22/2021 23:40 EDT [facility] Blood VENOUS BLOOD / Unknown Venipuncture / Unknown 04/22/2021 23:21 EDT 04/22/2021 23:24 EDT us Sharon A Brennon PA-C CHEMISTRY & BLOOD GAS O RDERABLES Final Result Performing Organization Address City/[facility]/ZIP Co de Phone Number [facility] [address] [place] [address] * (ABNORMAL) COMPREHENSIVE METABOLIC PANEL (CMP) (04/22/2021 23:21 EDT) Sodium 138 136 - 145 mEq/L 04/22/2021 23:41 EDT [facility] Potassium 4.3 3.5 - 5.0 mEq/L 04/22/2021 23:41 [facility] Chloride 103 96 - 110 mEq/L 04/22/2021 23:41 [facility] CO2 Total 25 22 - 32 mEq/L 04/22/2021 23:41 [facility] Glucose 85 70 - 100 mg/dL 04/22/2021 23:41 [facility] BUN 18 10 - 26 mg/dL 04/22/2021 23:41 [facility] Creatinine 1.30(H) 0.52 - 1.04 mg/dL 04/22/2021 23:41 [facility] eGFR 45(L) >60 mL/min/1.7 3m2 04/22/2021 23:41 [facility] Comment:eGFR calculated lobito coppola CKD-EPI equation for non- Americans. Multiply eGFR by 1.16 for patients. Total Protein 7.3 6.3 - 8.2 g/dL 04/22/2021 23:41 [facility] Albumin 4.2 3.4 - 4.9 g/dL 04/22/2021 23:41 [facility] Alkaline Phosphatase 69 38 - 126 U/L 04/22/2021 23:41 [facility] AST 28 15 - 46 U/L 04/22/2021 23:41 [facility] ALT 16 <35 U/L 04/22/2021 23:41 [facility] Bilirubin, Total 0.9 <1.4 mg/dL 04/22/20 23:41 [facility] Calcium 9.0 8.5 - 10.5 mg/dL 04/22/2021 23:41 [facility] Calculated Calcium 8.8 8.5 - 10.5 mg/dL 04/22/2021 23:41 [facility] Blood VENOUS BLOOD / Unknown Venipuncture / Unknown 04/22/2021 23:21 EDT 04/22/2021 23:24 EDT us Sharon Willett PA-C CHEMISTRY & BLOOD GAS O RDERABLES Final Result [facility] [address] [place] [address] * (ABNORMAL) COMPLETE BLOOD COUNT AND DIFFERENTIAL (04/22/2021 23:21 EDT) WBC 2.79(L) 4.00 - 12.40 K/cmm 04/22/2021 23:33 [facility] RBC 4.39 3.86 - 5.04 M/cmm 04/22/2021 23:33 [facility] Hemoglobin 12.7 11.6 - 15.2 gm/dL 04/22/2021 23:33 [facility] HCT 36.9 34.9 - 44.4 % 04/22/2021 23:33 [facility] MCV 84 81 - 98 fl 04/22/2021 23:33 [facility] MCH 28.9 26.7 - 33.3 pg 04/22/2021 23:33 [facility] MCHC 34.4 32.1 - 35.9 gm/dL 04/22/2021 23:33 [facility] RDW-CV 14.4 <14.7 % 04/22/2021 23:33 [facility] RDW-SD 44.3 <50.4 fl 04/22/2021 23:33 [facility] PLT 45(L) 141 - 377 K/cmm 04/22/2021 23:33 [facility] MPV 10.7 9.5 - 12.7 fl 04/22/2021 23:33 [facility] % Neutrophils 80.6 % 04/22/2021 23:33 [facility] % Lymphocytes 9.3 % 04/22/2021 23:33 [facility] % Monocytes 7.5 % 04/22/2021 23:33 [facility] % Eosinophils 1.8 % 04/22/2021 23:33 [facility] % Basophils 0.4 % 04/22/2021 23:33 [facility] % Immature Grans 0.4 % 04/22/20 23:33 [facility] Absolute Neutrophils 2.25 2.20 - 8.85 K/cmm 04/22/2021 23:33 [facility] Absolute Lymphocytes 0.26(L) 1.09 - 3.30 K/cmm 04/22/2021 23:33 [facility] Absolute Monocytes 0.21 0.10 - 0.80 K/cmm 04/22/2021 23:33 [facility] Absolute Eosinophils 0.05 0.03 - 0.61 K/cmm 04/22/2021 23:33 [facility] ABS Basophils 0.01 0.01 - 0.11 K/cmm 04/22/2021 23:33 [facility] Absolute Immature Grans 0.01 0.00 - 0.06 K/cmm 04/22/2021 23:33 [facility] Type of Differential: Auto 04/22/2021 23:33 [facility] Blood VENOUS BLOOD / Unknown Venipuncture / Unknown 04/22/2021 23:21 EDT 04/22/2021 23:24 EDT us Sharon Willett PA-C PACKAGES & DNA PROBE OR DERABLES Final Result [facility] [address] [place] [address] documented in this encounter Visit Diagnoses Diagnosis Portal vein thrombosis Cirrhosis of liver without ascites, unspecified hepatic cirrhosis type (HCC-CMS) Abdominal pain, unspecified abdominal location Portal vein thrombosis documented in this encounter Admitting Diagnoses Diagnosis Portal vein thrombosis documented in this encounter Administered Medications Inactive Administered Medications - up to 3 most recent administrations Medication Order MAR Action Action Date Dose Rate Site albuterol inhaler 180 mcg 180 mcg (2 Puff), inhalation, EVERY 4 HOURS PRN, Starting on Kirsten 04/23/21 at 0351, Until 04/25/21 at 1550, Wheezing, Shortness of Breath, Routine Given 04/24/2021 20:33 EDT 180 mcg enoxaparin (LOVENOX) injection 40 mg 40 mg, subcutaneous, DAILY, First dose on Kirsten 04/23/21 at 1715, Until Discontinued, Routine Given 04/24/2021 8:51 EDT 40 mg Given 04/23/2021 17:30 EDT 40 mg enoxaparin (LOVENOX) injection 40 mg 40 mg, subcutaneous, DAILY, First dose on 04/25/21 at 0900, Until Discontinued, Routine Given 04/25/2021 9:03 EDT 40 mg enoxaparin teaching kit 1 Each 1 Each, other, Once (Without Time Specified), 1 dose, Starting on 04/25/21 at 0900, Until 04/25/21 at 1550, Routine furosemide (LASIX) tablet 20 mg 20 mg, oral, DAILY, First dose on Kirsten 04/23/21 at 0900, Until Discontinued, Routine Given 04/25/2021 9:03 EDT 20 mg Given 04/24/2021 8:51 EDT 20 mg Given 04/23/2021 17:57 EDT 20 mg heparin 1,000 unit/mL injection 5,500 Units 5,500 Units (rounded from 5,512 Units = 80 Units/kg ? 68.9 kg Adjusted weight), intravenous, NOW X1, 1 dose, On Kirsten 04/23/21 at 0245, STAT Given 04/23/2021 3:08 EDT 5,500 Units heparin in 1/2 NS 25,000 unit/250 mL infusion 18 Units/kg/hr ? 68.9 kg Adjusted weight (12.402 mL/hr, rounded to 12.4 mL/hr), intravenous, CONTINUOUS, Starting on Kirsten 04/23/21 at 0245, Until Kirsten 04/23/21 at 1648, STAT Rate Documented 04/23/2021 12:54 EDT 18 Units/kg/hr 12.4 mL/hr New Bag 04/23/2021 3:10 EDT 18 Units/kg/hr 12.4 mL/hr HYDROmorphone (DILAUDID) tablet 2 mg 2 mg, oral, EVERY 4 HOURS PRN, Starting on Kirsten 04/23/21 at 0351, Until 04/25/21 at 1550, Pain, Routine Given 04/25/2021 13:38 EDT 2 mg Given 04/25/2021 9:04 EDT 2 mg Given 04/25/2021 4:57 EDT 2 mg HYDROmorphone (PF) (DILAUDID) 0.5 mg/0.5 mL syringe 0.5 mg 0.5 mg, intravenous, NOW X1, 1 dose, On Kirsten 04/23/21 at 0015, STAT Given 04/23/2021 0:20 EDT 0.5 mg HYDROmorphone (PF) (DILAUDID) 0.5 mg/0.5 mL syringe 0.5 mg 0.5 mg, intravenous, NOW X1, 1 dose, On Kirsten 04/23/21 at 0215, STAT Given 04/23/2021 2:11 EDT 0.5 mg HYDROmorphone (PF) (DILAUDID) 0.5 mg/0.5 mL syringe 0.5 mg 0.5 mg, intravenous, NOW X1, 1 dose, On Kirsten 04/23/21 at 0530, STAT Given 04/23/2021 5:37 EDT 0.5 mg HYDROmorphone (PF) (DILAUDID) 0.5 mg/0.5 mL syringe 0.5 mg 0.5 mg, intravenous, NOW X1, 1 dose, On Kirsten 04/23/21 at 0915, STAT Given 04/23/2021 9:22 EDT 0.5 mg HYDROmorphone (PF) (DILAUDID) 0.5 mg/0.5 mL syringe 1 mg 1 mg, intravenous, NOW X1, 1 dose, On Kirsten 04/23/21 at 0330, STAT Given 04/23/2021 3:23 EDT 1 mg HYDROmorphone (PF) (DILAUDID) 0.5 mg/0.5 mL syringe 1 dose, Starting on Kirsten 04/23/21 at 0016, Until Kirsten 04/23/21 at 0020 hydrOXYzine (ATARAX) tablet 25 mg 25 mg, oral, NOW X1, 1 dose, On 04/25/21 at 0045, Routine Given 04/25/2021 0:38 EDT 25 mg iohexoL (OMNIPAQUE 350) solution 1-150 mL 1-150 mL, intravenous, Once in imaging, 1 dose, Starting on Kirsten 04/23/21 at 0052, Until Kirsten 04/23/21 at 0054, Routine, Imaging Protocol Orders Given 04/23/2021 0:54 EDT 95 mL levothyroxine (SYNTHROID) tablet 25 mcg 25 mcg, oral, DAILY BEFORE BREAKFAST, First dose on Kirsten 04/23/21 at 0745, Until Discontinued, Routine Given 04/25/2021 9:03 EDT 25 mcg Given 04/24/2021 6:30 EDT 25 mcg magnesium oxide (MAG-OX) tablet 400 mg 400 mg, oral, DAILY, First dose on Kirsten 04/23/21 at 1200, Until Discontinued, Routine Given 04/25/2021 13:38 EDT 400 mg Given 04/24/2021 13:10 EDT 400 mg Given 04/23/2021 13:12 EDT 400 mg ondansetron (PF) (ZOFRAN) injection 4 mg 4 mg, intravenous, NOW X1, 1 dose, On Tue04/23/21 at 0330, STAT Given 04/23/2021 3:23 EDT 4 mg ondansetron (PF) (ZOFRAN) injection 4 mg 4 mg, intravenous, EVERY 4 HOURS PRN, Starting on Kirsten 04/23/21 at 0731, Until Kirsten 04/23/21 at 1056, Nausea, Routine Given 04/23/2021 7:40 EDT 4 mg ondansetron (PF) (ZOFRAN) injection 4 mg 4 mg, intravenous, EVERY 4 HOURS PRN, Starting on Kirsten 04/23/21 at 1056, Until 04/25/21 at 1550, Nausea, Routine ondansetron (ZOFRAN-ODT) disintegrating tablet 4 mg 4 mg, oral, EVERY 4 HOURS PRN, Starting on Kirsten 04/23/21 at 1056, Until 04/25/21 at 1550, Nausea, Routine Given 04/25/2021 3:00 EDT 4 mg Given 04/24/2021 2:03 EDT 4 mg Given 04/23/2021 22:03 EDT 4 mg pantoprazole (PROTONIX) tablet 40 mg 40 mg, oral, DAILY, First dose on Tue04/23/21 at 0900, Until Discontinued Given 04/25/2021 9:03 EDT 40 mg Given 04/24/2021 8:51 EDT 40 mg polyethylene glycol 3350 (MIRALAX) packet 17 g 17 g, oral, DAILY, First dose on Tue04/23/21 at 1930, Until Discontinued, Routine Given 04/25/2021 9:03 EDT 17 g senna (SENOKOT) tablet 1 Tab 1 Tablet, oral, AT BEDTIME, First dose on Tue04/23/21 at 2100, Until Discontinued, Routine sertraline (ZOLOFT) tablet 50 mg 50 mg, oral, DAILY, First dose on Tue04/23/21 at 0900, Until Discontinued, Routine Given 04/25/2021 9:03 EDT 50 mg Given 04/24/2021 8:51 EDT 50 mg Given 04/23/2021 9:57 EDT 50 mg sodium chloride 0.9 % BOLUS 1,000 mL 1,000 mL, intravenous, NOW X1, 1 dose, On Tue04/22/21 at 2315, STAT New Bag 04/22/2021 23:21 EDT 1,000 mL spironolactone (ALDACTONE) tablet 50 mg 50 mg, oral, DAILY, First dose on Tue04/23/21 at 0900, Until Discontinued, Routine Given 04/25/2021 9:03 EDT 50 mg Given 04/24/2021 8:51 EDT 50 mg Given 04/23/2021 17:57 EDT 50 mg traZODone (DESYREL) tablet 200 mg 200 mg, oral, AT BEDTIME, First dose on Tue04/23/21 at 2100, Until Discontinued, Routine Given 04/24/2021 20:33 EDT 20 0 mg Given 04/23/2021 20:27 EDT 200 mg documented in this encounter Discontinued Medications Medication Sig Discontinue Reason Start Date End Da te ERGOCALCIFEROL, VITAMIN D2, (VITAMIN D ORAL) Take by mouth. Therapy completed ferrous gluconate (FERGON) 324 mg (38 mg iron) tablet Take 324 mg by mouth daily with breakfast. Therapy completed 04/23/2021 gabapentin (NEURONTIN) 300 mg capsule Take 1 Cap by mouth 2 times daily. Alternate therapy 03/30/2021 04/23/2021 documented as of this encounter Active and Recently Administered Medications Times are shown in EDT. Scheduled Medication Order 04/23/2021 04/24/2021 04/25/2021 enoxaparin (LOVENOX) injection 40 mg (CANCELED) 40 mg, subcutaneous, DAILY, First dose on Kirsten /02/08 at 1715, Until Discontinued, Routine 1730 (Given - Provider: Katherin Hylton RN) 0851 (Given - Provider: Katherin Hylton RN) enoxaparin (LOVENOX) injection 40 mg 40 mg, subcutaneous, DAILY, First dose on Sat 6/21 at 0900, Until Discontinued, Routine 0903 (Given - Provider: Radha Parmar RN) enoxaparin teaching kit 1 Each 1 Each, other, Once (Without Time Specified), 1 dose, Starting on Sat /04/10 at 0900, Until Sat 6/21 at 1550, Routine furosemide (LASIX) tablet 20 mg 20 mg, oral, DAILY, First dose on Kirsten 04/23/21 at 0900, Until Discontinued, Routine 1757 (Given - Provider: Katherin Hylton RN - Comment: n/v earlier, requested dose now) 0851 (Given - Provider: Katherin Hylton RN) 0903 (Given - Provider: Radha Parmar RN) heparin 1,000 unit/mL injection 5,500 Units (COMPLETED) 5,500 Units (rounded from 5,512 Units = 80 Units/kg ? 68.9 kg Adjusted weight), intravenous, NOW X1, 1 dose, On Kirsten 04/23/21 at 0245, STAT 0308 (Given - Provider: Dom Styles RN) HYDROmorphone (PF) (DILAUDID) 0.5 mg/0.5 mL syringe 0.5 mg (COMPLETED) 0.5 mg, intravenous, NOW X1, 1 dose, On Kirsten 04/23/21 at 0015, STAT 0020 (Given - Provider: Nayeli Robertson RN) HYDROmorphone (PF) (DILAUDID) 0.5 mg/0.5 mL syringe 0.5 mg (COMPLETED) 0.5 mg, intravenous, NOW X1, 1 dose, On Kirsten 04/23/21 at 0215, STAT 0211 (Given - Provider: Jesus Khan RN) HYDROmorphone (PF) (DILAUDID) 0.5 mg/0.5 mL syringe 0.5 mg (COMPLETED) 0.5 mg, intravenous, NOW X1, 1 dose, On Kirsten 04/23/21 at 0530, STAT 0537 (Given - Provider: Dom Styles, KENN) HYDROmorphone (PF) (DILAUDID) 0.5 mg/0.5 mL syringe 0.5 mg (COMPLETED) 0.5 mg, intravenous, NOW X1, 1 dose, On Kirsten 04/23/21 at 0915, STAT 0922 (Given - Provider: Dana Arroyo RN) HYDROmorphone (PF) (DILAUDID) 0.5 mg/0.5 mL syringe 1 mg (COMPLETED) 1 mg, intravenous, NOW X1, 1 dose, On Kirsten 04/23/21 at 0330, STAT 0323 (Given - Provider: Dom Styles RN) hydrOXYzine (ATARAX) tablet 25 mg (COMPLETED) 25 mg, oral, NOW X1, 1 dose, On 04/25/21 at 0045, Routine 0038 (Given - Provider: Ayesha Evans RN) iohexoL (OMNIPAQUE 350) solution 1-150 mL (COMPLETED) 1-150 mL, intravenous, Once in imaging, 1 dose, Starting on Kirsten 04/23/21 at 0052, Until Kirsten 04/23/21 at 0054, Routine, Imaging Protocol Orders 0054 (Given - Provider: Araceli Luis - Comment: 95@4cc/sec) levothyroxine (SYNTHROID) tablet 25 mcg 25 mcg, oral, DAILY BEFORE BREAKFAST, First dose on Kirsten 04/23/21 at 0745, Until Discontinued, Routine 0956 (Hold - Provider: Dana Arroyo RN - Reason: Nausea/Vomiting) 0630 (Given - Provider: Paola Wolf RN) 0903 (Given - Provider: Radha Parmar RN) magnesium oxide (MAG-OX) tablet 400 mg 400 mg, oral, DAILY, First dose on Kirsten 04/23/21 at 1200, Until Discontinued, Routine 1312 (Given - Provider: Katherin Hylton RN) 1310 (Given - Provider: Katherin Hylton RN) 1338 (Given - Provider: Radha Parmar, KENN) ondansetron (PF) (ZOFRAN) injection 4 mg (COMPLETED) 4 mg, intravenous, NOW X1, 1 dose, On Kirsten 04/23/21 at 0330, STAT 0323 (Given - Provider: Dom Styles, KENN) pantoprazole (PROTONIX) tablet 40 mg 40 mg, oral, DAILY, First dose on Kirsten 04/23/21 at 0900, Until Discontinued 09 (Not Given - Provider: Dana Arroyo RN - Reason: Nausea/Vomiting) 0851 (Given - Provider: Katherin Hylton RN) 09 (Given - Provider: Radha Pamrar RN) polyethylene glycol 3350 (MIRALAX) packet 17 g 17 g, oral, DAILY, First dose on Kirsten 04/23/21 at 1930, Until Discontinued, Routine 2027 (Not Given - Provider: Paola Wolf RN - Reason: Patient/family refused - Comment: Had loose bowel movment at 7 pm) 0851 (Not Given - Provider: Katherin Hylton RN - Reason: Patient/family refused) 09 (Given - Provider: Radha Parmar RN) senna (SENOKOT) tablet 1 Tab 1 Tablet, oral, AT BEDTIME, First dose on Kirsten 04/23/21 at 2100, Until Discontinued, Routine 2027 (Not Given - Provider: Paola Wolf RN - Reason: Patient/family refused) 2033 (Not Given - Provider: Ayesha Evans RN - Reason: Patient/family refused) sertraline (ZOLOFT) tablet 50 mg 50 mg, oral, DAILY, First dose on Kirsten 04/23/21 at 0900, Until Discontinued, Routine 0957 (Given - Provider: Dana Arroyo RN) 0851 (Given - Provider: Katherin Hylton RN) 09 (Given - Provider: Radha Parmar RN) spironolactone (ALDACTONE) tablet 50 mg 50 mg, oral, DAILY, First dose on Kirsten 04/23/21 at 0900, Until Discontinued, Routine 1757 (Given - Provider: Katherin Hylton RN - Comment: n/v earlier, requested dose now) 0851 (Given - Provider: Katherin Hylton RN) 0903 (Given - Provider: Radha Parmar, RN) traZODone (DESYREL) tablet 200 mg 200 mg, oral, AT BEDTIME, First dose on Kirsten 04/23/21 at 2100, Until Discontinued, Routine 2026 (Given - Provider: Paola Wolf, KENN) 2032 (Given - Provider: Ayesha Evans, RN) Continuous Medication Order 04/23/2021 04/24/2021 04/25/2021 heparin in 11/22 NS 25,000 unit/250 mL infusion (CANCELED) 18 Units/kg/hr ? 68.9 kg Adjusted weight (12.402 mL/hr, rounded to 12.4 mL/hr), intravenous, CONTINUOUS, Starting on Kirsten 04/23/21 at 0245, Until Kirsten 04/23/21 at 1648, STAT 0310 (New Bag - Provider: Dom Styles RN)1254 (Rate Documented - Provider: Katherin Hylton RN) PRN Medication Order 04/23/2021 04/24/2021 04/25/2021 albuterol inhaler 180 mcg 180 mcg (2 Puff), inhalation, EVERY 4 HOURS PRN, Starting on Kirsten 04/23/21 at 0351, Until 04/25/21 at 1550, Wheezing, Shortness of Breath, Routine 2032 (Given - Provider: Ayesha Evans, KENN) HYDROmorphone (DILAUDID) tablet 2 mg 2 mg, oral, EVERY 4 HOURS PRN, Starting on Kirsten 04/23/21 at 0351, Until 04/25/21 at 1550, Pain, Routine 1312 (Given - Provider: Katherin Hylton RN)1803 (Given - Provider: Katherin Hylton, KENN)2203 (Given - Provider: Paola Wolf, KENN) 0203 (Given - Provider: Paola Wolf, KENN)0630 (Given - Provider: Paola Wolf, KENN)1131 (Given - Provider: Katherin Hylton RN)1645 (Given - Provider: Radha Parmar, RN)203 (Given - Provider: Ayesha Evans, KENN) 0038 (Given - Provider: Ayesha Evans RN)0457 (Given - Provider: Ayesha Evans RN)0904 (Given - Provider: Radha Parmar, RN)1338 (Given - Provider: Radha Parmar RN) lidocaine (PF) 10 mg/mL (1 %) injection 2 mg 2 mg, intradermal, PRN, 4 doses, Starting on Kirsten 6 at 0351, Until 04/25/21 at 1550, peripheral intravenous catheter placement, Routine ondansetron (PF) (ZOFRAN) injection 4 mg (CANCELED) 4 mg, intravenous, EVERY 4 HOURS PRN, Starting on Kirsten 6 at 0731, Until Kirsten 6 at 1056, Nausea, Routine 0740 (Given - Provider: Dana Arroyo RN) ondansetron (PF) (ZOFRAN) injection 4 mg(Linked Group 1) 4 mg, intravenous, EVERY 4 HOURS PRN, Starting on Kirsten 6 at 1056, Until 04/25/21 at 1550, Nausea, Routine 1511 (See Alternative - Provider: Katherin Hylton RN)2203 (See Alternative - Provider: Paola Wolf RN) 0203 (See Alternative - Provider: Paola Wolf RN) 0300 (See Alternative - Provider: Ayesha Evans RN) ondansetron (ZOFRAN-ODT) disintegrating tablet 4 mg(Linked Group 1) 4 mg, oral, EVERY 4 HOURS PRN, Starting on Kirsten 6 at 1056, Until 04/25/21 at 1550, Nausea, Routine 1511 (Given - Provider: Katherin Hylton RN)2203 (Given - Provider: Paola Wolf RN) 0203 (Given - Provider: Paola Wolf, KENN) 0300 (Given - Provider: Ayesha Evans, KENN) Linked Groups Order Group 1: ondansetron (ZOFRAN-ODT) disintegrating tablet 4 mgJump to med 4 mg, oral, EVERY 4 HOURS PRN, Starting on Kirsten 6 at 1056, Until 04/25/21 at 1550, Nausea, Routine Or ondansetron (PF) (ZOFRAN) injection 4 mgJump to med 4 mg, intravenous, EVERY 4 HOURS PRN, Starting on Kirsten 04/23/21 at 1056, Until 04/25/21 at 1550, Nausea, Routine documented in this encounter Orders Medications Ordered That Luc ht Not Have Been Administered Count Last Ordered Date First Ordered Date enoxaparin teaching kit 1 Each 1 04/25/2021 heparin 1,000 unit/mL inject ion 2,800 Units 1 04/23/2021 heparin 1,000 unit/mL inject ion 5,500 Units 1 04/23/2021 HYDROmorphone (PF) (DILAUDID ) 0.5 mg/0.5 mL syringe 1 04/23/2021 lidocaine (PF) 10 mg/mL (1 % ) injection 2 mg 1 04/23/2021 mometasone-formoterol (DULER A) 200-5 mcg/actuation inhaler 2 Puff 1 04/23/2021 ondansetron (PF) (ZOFRAN) 4 mg/2 mL injection 1 04/23/2021 ondansetron (PF) (ZOFRAN) injection 4 mg 1 04/23/2021 ondansetron (ZOFRAN-ODT) dis integrating tablet 4 mg 1 04/23/2021 senna (SENOKOT) tablet 1 Tab 1 04/23/2021 Nursing Count Last Ordered Date First Orde red Date VTE PHARMACOLOGIC PROPHYLAXI S CURRENTLY ORDERED OR ON ALTERNATIVE THER 1 04/23/2021 Admission Count Last Ordered Date First Orde red Date ADMIT TO INPATIENT 1 04/23/2021 Transfer Count Last Ordered Date First Orde red Date ED BED REQUEST 1 04/23/2021 Discharge Count Last Ordered Date First Orde red Date DISCHARGE PATIENT 1 04/25/2021 documented in this encounter Care Teams Rn Licensed Practical Relationship Specialty Start Date End Date Emigdio Veronica MD [address] [place] [phone] PCP - General Internal Medicine - Primary Care 05/22/20 02/21/24 documented as of this encounter
--- OUTSIDE RECORDS SUMMARY | 2024-11-22 17:16 | XMS_ITS | Encounter Summary ---
Author Organization 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 She wanted you to give her a call back. She wants to cancel tomorrows appointment because she has no way to gt here. (did not cancel appt at this time) * Telephone Encounter - Ashley Weems - 04/14/2021 1705 EDT We see you were in the Emergency Department for SOB on 04/13/21. How are you feeling/symptoms improving? No: feeling nauseated, no appetitite and very fatiguesd with no energy; the pharmacist told her it might be related to the metronidazole she's been taking; nowon azithromycin as well from ED Do you have any questions? no Can we schedule a follow up visit? Appt existing already for 04/16/21; pt would have liked to wait till tomorrow to see if she's feeling any better; encouraged to keep the appt documented in this encounter Plan of Treatment Upcoming Encounters Date Type Department Care Team (Late st Contact Info) Description 01/04/2025 13:00 EST Office Visit [facility] [place] [address] Gagandeep Rome MD [address] [place] [address], [address] [place] [phone] 02/11/2025 13:30 EDT Telemedicine [facility] Hematology & Oncology - [address] [phone] Dana Padilla MD [address] [facility] [address] [place] [phone] documented as of this encounter Visit Diagnoses Not on filedocumented in this encounter Care Teams Shrub Planter Relationship Specialty Start Date End Date Emigdio Veronica MD [address] [place] [phone] PCP - General Internal Medicine - Primary Care 05/22/20 02/21/24 documented as of this encounter
--- OUTSIDE RECORDS SUMMARY | 2024-11-22 17:16 | XMS_ITS | Encounter Summary ---
Author Organization [facility] Address [address] [place] [address] Care Team Providers Care Home Health Care Worker Name Role Phone Emigdio Veronica MD Primary Care Provider + Reason for Visit * Reason Comments Shortness of Breath Arrives as T-Call: R EFERRED BY [facility] FOR WORSENING SOB ON EXERTION, DYSPNEA, PRODUCTIVE COUGH W/ SPUTUM, FEVER 102F, RECENTLY TREATED FOR PNA, UTI, 1ST COVID VACCINE 04/01 . Pt states symptoms worse x 3 days. 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 No / Unsure 04/13/2021 13:03 EDT documented as of this encounter Last Filed Vital Signs Vital Sign Reading Time Taken Comments Blood Pressure 130/73 04/13/2021 2307 EDT Pulse 75 04/13/2021 1302 EDT Temperature 37.3 ??C (99.1 ??F) 04/13/2021 2307 EDT Respiratory Rate 15 04/13/2021 2210 EDT Oxygen Saturation 89% 04/13/20210 EDT Inhaled Oxygen Concentration - - Weight 90.7 kg (200 lb) 04/13/2021 1302 EDT Height - - Body Mass Index 34.33 03/26/2021 0952 EDT documented in this encounter [...] Jeet Black RN documented in this encounter Discharge Instructions * Discharge Instructions* Fatoumata Willett PA-C - 04/13/2021 22:33 EDT Thank you for being seen here today. Fortunately your CAT scan of your chest was negative for any large clot or pneumonia. This is very reassuring despite your elevated blood results that we found. If your symptoms should worsen we would recommend that you be seen back here emergently. Fortunately you had good relief with your nebulizer. We would recommend that you follow-up with your primary care provider here in the next few days. Additionally I have sent a consultation for hematology to follow-up the with you in the near future and he did have some abnormal blood work today which seems consistent with the abnormal findings in the past. Please do not take Zofran at the same time as you take your azithromycin. documented in this encounter Medications at Time [...] directed every 4 hours as needed. 1 azithromycin (ZITHROMAX) 250 mg tablet Take 1 Tab by mouth daily for 4 days. 4 Tab 04/13/2021 1 ERGOCALCIFEROL, VITAMIN D2, (VITAMIN D ORAL) Take by mouth. 1 ferrous gluconate (FERGON) 324 mg (38 mg iron) tablet Take 324 mg by mouth daily with breakfast. 1 furosemide (LASIX) 20 mg tablet Take 1 Tab by mouth daily. 90 Tab 1 04/10/2021 1 gabapentin (NEURONTIN) 300 mg capsule Take 1 Cap by mouth 2 times daily. 180 Cap 3 03/30/2021 1 levothyroxine (SYNTHROID) 25 mcg tablet Take 1 Tab by mouth daily. Unknown dose 90 Tab 3 11/03/2020 1 magnesium oxide (MAG-OX) 400 mg (241.3 mg magnesium) tablet Take 1 Tab by mouth daily. 200 Tab 3 12/15/2020 1 metroNIDAZOLE (FLAGYL) 500 mg tablet Take 1 Tab by mouth 2 times daily. 14 Tab 04/10/2021 1 omeprazole (PRILOSEC) 20 mg capsule Take 1 Cap by mouth daily. 90 Cap 03/26/2021 1 ondansetron (ZOFRAN) 4 mg tablet Take 1 Tab by mouth 2 times daily as needed for Nausea. 60 Tab 3 03/30/2021 1 sertraline (ZOLOFT) 50 mg tablet Take 1 Tab by mouth daily. 90 Tab 1 04/10/2021 1 spironolactone (ALDACTONE) 100 mg tablet Take 1 Tab by mouth daily. 90 Tab 3 03/06/2021 1 SYMBICORT 160-4.5 mcg/actuation HFA aerosol inhaler inhalerIndicatio ns:COPD with asthma ([facility]) Inhale 2 Puffs as directed [...] azithromycin (ZITHROMAX) 250 mg tablet Take 1 Tab by mouth daily for 4 days. 4 Tab 04/13/2021 1 documented in this encounter Discharge Disposition Disposition Code Departure Means Destination Home or Self Mcfp documented in this encounter ED Notes * Inderjit Vickers RN - 04/13/2021 9474 EDT Reviewed AVS with pt. Given rx by provider. Educated on return precautions and followup[ appts. Pt states understanding. PIV removed, VS obtained. Condition unchanged since last seen by provider. Left via ambulation * Inderjit Vickers RN - 04/13/20212044 EDT Pt to CT with inspector radar and electronics * Karol Mejia MD - 04/13/2021 193 EDT I, Lise Elliott, am scribing for Dr. Karol Mejia while he/she is personally performing the service. Lise Elliott 04/13/2021 19:35 I performed a history and exam of [...] with a history of cirrhosis of liver, partial SBO, COPD, and HUEY who presents to the ED at the recommendation of her PCP for evaluation of shortness of breath. Thepatient explains that she has been experiencing dyspnea on exertion, productive cough with sputum, and fever with TMax 102F which have all been worsening over the course of the last 3 days. She notably has known PNA and UTI for which she is currently being treated with antibiotics. I agree with physical exam findings as per PALeslieC's primary chart. Results: Patient had labs that were reviewed independently by myself, significant for D- Dimer 1084, negativetroponin, normal lactic acid. Creatinine 1.25, GFR 47. The patient had an angiogram chest CT which was significant for no evidence of pulmonary embolism. Mildly prominent mediastinal lymph nodes, similar to March 2020. Unchanged linear scarring or atelectasis in the left upper lobe. Redemonstrated findings of portal hypertension.. Patient had CT that was obtained, reviewed, and interpreted by myself along with a radiologist. Please see radiology reportfor further details. ED Course: 1829: Patient was hydrated with 1,000mL NaCl BOLUS. Symptoms managed with 1,000mg oral Tylenol. Limited Cardiac Bedside Ultrasound. Indication: shortness of breath, cough Views obtained: standard cardiac US views Findings include normal mitral valve excursion, trace pericardial fluid. No RV dilatation. Images obtained, reviewed, and interpreted independently by myself. Please see formal report in the[facility] Images section. Images saved in PACS. Given results of US in combination with elevated D-Dimer, plan for CT imaging. (results above) 2211: Patient was treated with Duoneb. 2220: Patient given 500mg oral azithromycin. Given patient's reassuring workup including negative chest CT, the patient was appropriate and stable for discharge home. Advised to follow up with PCP as well as Hematology. Patient prescribed azithromycin and Zofran, instructed to not take the two at the same time. Patient felt comfortable with this plan. Prior to discharge usual and customary precautions were reviewed with the patient and/or family including follow-up instructions and reasons to return to the Emergency Department if condition worsens, does not improve as expected, or other new concerns arise. I agree with WILLY's medical decision making regarding patient's care. Please refer to their primarydocumentation regarding patient's care, treatment, and disposition plan. Final diagnoses: Pancytopenia (HCC-CMS) Wheezing Bronchitis This documentation is recorded by Lise Elliott acting as Scribe under the direction and presence of Karol Mejia MD. Karol Mejia MD: I personally performed the services recorded by the scribe in my presence. I confirm the scribe's documentation has been reviewed by me to accurately and completely record my work, treatment, procedures, and medical decision making. * Inderjit Vickers RN - 04/13/2021 1704 EDT Report from KENN Grace * Fatoumata Willett PA-C - 04/13/2021 1603 EDT DOS: 04/13/2021 Chief Complaint Patient presents with ??? Shortness of Breath Arrives as T-Call: REFERRED BY [facility] FOR WORSENING SOB ON EXERTION, DYSPNEA, PRODUCTIVE COUGH W/ SPUTUM, FEVER 102F, RECENTLY TREATED FOR PNA, UTI, 1ST COVID VACCINE 04/01 . Pt states symptoms worse x 3 days. HPI The patient is a 60 y.o. female who presents today with Shortness of Breath (Arrives as T-Call: REFERRED BY [facility] FOR WORSENING SOB ON EXERTION, DYSPNEA, PRODUCTIVE COUGH W/ SPUTUM, FEVER 102F, RECENTLY TREATED FOR PNA, UTI, 1ST COVID VACCINE 04/01 . Pt states symptoms worse x 3 days. ) HPI 60-year-old female presenting today with shortness of breath. She reports that she is having dyspnea on exertion, productive cough with sputum, fevers up to 102 at home. She reports recently treated for pneumonia and UTI. She also reports that she had her first Covid vaccine on 04/01. Patient statesher symptomology is worsened over the last 72 hours. Past medical history of chronic kidney disease. Cirrhosis of the liver, partial small bowel obstruction, COPD, HUEY. Patient reports that trichomonas was found in her urine last week. She was started on Flagyl. [place] she has felt somewhat rundown and nauseous. Does not drink alcohol. Review of Systems Review of Systems Constitutional: Positive for fatigue. Negative for chills, diaphoresis and fever. HENT: Negative for facial swelling and voice change. Eyes: Negative for redness. Respiratory: Positive for shortness of breath and wheezing. Negative for choking. Cardiovascular: Negative for chest pain and leg swelling. Gastrointestinal: Positive for nausea. Negative for abdominal pain and vomiting. Genitourinary: Positive for frequency. Negative for dysuria. Musculoskeletal: Negative for arthralgias and back pain. Skin: Negative for color change and pallor. Neurological: Negative for facial asymmetry and speech difficulty. Psychiatric/Behavioral: Negative for agitation, confusion and suicidal ideas. The patient is not nervous/anxious. Allergies Allergen Reactions ??? Morphine Anaphylaxis ??? Sulfa (Sulfonamide Antibiotics) Anaphylaxis ??? Tylenol [Acetaminophen] Other (See Comments) Contraindication with medical hx ??? Aspirin Other (See Comments) Contraindication with medical hx ??? Injectafer [Ferric Carboxymaltose] ??? Lyrica [Pregabalin] Anxiety Insomnia ??? Reglan [Metoclopramide Hcl] Rash Vital Signs Vitals Reassessment?: Yes Temp: 37 ??C (98.6 ??F) Temp src: Oral Pulse: 75 Heart Rate: 75 BPM Resp: 17 SpO2: 97 % BP: 101/53 BP Device: BP Machine BP Patient Position: Sitting BP Cuff Location: Left arm O2 Device: None (Room air) Physical Exam Constitutional: General: She is not in acute distress. Appearance: She is well-developed. She is not diaphoretic. HENT: Head: Normocephalic and atraumatic. Neck: Musculoskeletal: Normal range of motion and neck supple. Pulmonary: Effort: Pulmonary effort is normal. Breath sounds: Wheezing present. No rhonchi or rales. Abdominal: Palpations: Abdomen is soft. There is no mass. Tenderness: There is no abdominal tenderness. There is no guarding or rebound. Skin: General: Skin is warm and dry. Neurological: General: No focal deficit present. Mental Status: She is alert and oriented to person, place, and time. Cranial Nerves: No cranial nerve deficit. Motor: No weakness. Psychiatric: Behavior: Behavior normal. Thought Content: Thought content normal. Judgment: Judgment normal. CT ANGIO CHEST PE PROTOCOL 04/13/2021 8:35 PM ?? Clinical History/Comments: PE suspected, intermediate prob, positive D-dimer ?? Technique: A contrast-enhanced helical CT acquisition of the chest from apices through the lung bases was performed with a reconstructed slice thickness of 0.9 mm with overlapping 0.45 mm intervals following the intravenous administration of 75-100 cc of 350-370 mg% nonionic contrast injected at a rate of 4-5cc/second. A small test bolus was used for image acquisition. Scans were reviewed on a dedicated PACS workstation for analysis. The radiologist reviewed and/or adjusted the images for the 3D/MIP rendering on an independent workstation, as necessary, prior to interpretation. ?? Exam description: CTA of the chest ?? Comparison: CT PE on 04/19/2020.. ?? Findings: Opacification of the pulmonary vasculature is good. No acute or chronic emboli are seen within the pulmonary arterial vasculature. ?? Lower neck: No abnormalities. ?? Chest wall soft tissues: No abnormalities. ?? Mediastinum and leobardo: Stable mildly prominent mediastinal lymph nodes. For example, a paratracheal measures approximately 1.1 cm (series 501, image #138), unchanged. An anterior juxtaphrenic lymph node (series 501, image 318), similar to prior. The thoracic esophagus is normal in appearance. ?? Heart and mediastinal vasculature: Cardiac chambers and great vessels are normal size. No evidence of right heart strain. No pericardial disease. ?? Large airways: Mild diffuse thickening. ?? Lungs: Redemonstrated linear atelectasis or scarring in the lingula and anterior segment of the left upper lobe. Unchanged lung cysts in the anterior segment of the left upper lobe. Unchanged slightly prominent fissure the left lung. No evidence of intralobular septal thickening. ?? Pleura: No abnormalities. ?? Upper abdomen (limited to upper abdomen, not optimized for abdominal imaging): Redemonstrated cirrhotic configuration of the liver, portal hypertension with enlarged portal veins and splenomegaly.. ?? Bones: No compression deformities or concerning osseous lesions. ?? IMPRESSION 1. No evidence of pulmonary embolism. 2. Mildly prominent mediastinal lymph nodes, similar to March 2020. 3. Unchanged linear scarring or atelectasis in the left upper lobe. 4. Redemonstrated findings of portal hypertension. Procedures ED COURSE A medical screening exam was performed. Discussed case with Dr. Karol Mejia. Dr. Mejia agrees that a CTA would be necessary given the elevated D-dimer and pancytopenia. Patient continues to have wheezing and productive cough while here in the emergency room. Fortunately CTA was negative as was chest x-ray. There was a slightly enlarged heart on chest x-ray this was discussed with Dr. Mejia who underwent a p.o. CT cardiac and lung ultrasound without emergent findings. Patient will be given a Z-Adonay to take for bronchitis. Additionally patient was given a breathing treatment here in the emergency department which did significantly help. We discussed using Tessalon Perles to help with the cough. And an inhaler at home. Patient was comfortable with this. We did alsoset up a outpatient follow-up with hematology to go over her recent results. While under my care in the Emergency Department, the patient's pain was managed to an adequate level weighing risk vs. benefit of medication. Prior to discharge usual and customary precautions were reviewed with the patient and/or family including follow-up instructions and reasons to return to the Emergency Department if condition worsens, does not improve as expected, or other new concerns arise Final diagnoses: None DISPOSITION: No disposition on [...] at departure from the Emergency Department: Stable PCP: Emigdio Mejia 04/13/2021 16:03 No flowsheet data found. * Jolie Cline - 04/13/2021 1439 EDT Pt observed in WR, awake. No signs of distress or increased WOB observed. Pt on cell phone. Awaiting room placement. * Jolie Cline - 04/13/2021 1309 EDT 12 Lead EKG Performed by JOLIE CLINE RN and shown to Jennifer Kam MD * Jolie Cline - 04/13/2021 1302 EDT Chief Complaint Patient presents with ??? Shortness of Breath Arrives as T-Call: REFERRED BY [facility] FOR WORSENING SOB ON EXERTION, DYSPNEA, PRODUCTIVE COUGH W/ SPUTUM, FEVER 102F, RECENTLY TREATED FOR PNA, UTI, 1ST COVID VACCINE 04/01 . Pt states symptoms worse x 3 days. * Sandra Brown - 04/13/2021 1252 EDT !!!TCALL: MANOJ BOOTHE 60, REF BY NURSE WYNN AT [facility] FOR WORSENING SOB ON EXERTION, DYSPNEA, PRODUCTIVE COUGH W/ SPUTUM, FEVER 102F, RECENTLY TREATED FOR PNA, UTI, 1ST COVID VACCINE 04/01 ([facility]) documented in this encounter Plan of Treatment Upcoming Encounters Date Type Department Care Team (Late st Contact Info) Description 01/04/2025 13:00 EST Office Visit [facility] Ophthalmology - [address] [phone] Gagandeep Rome MD [address] [place] [address], [address] [place] [phone] 02/11/2025 13:30 EDT Telemedicine [facility] Hematology & Oncology [address] [phone] Dana Padilla MD [address] [place] [address], [facility] [address] [place] [phone] Pending Results Name Type Priority Associated Diagnoses Date /Time POCT US ED GUIDANCE PIV Imaging STAT 0 04/13/2021 17:39 EDT POCT US ED GUIDANCE PIV Imaging STAT 0 04/13/2021 17:53 EDT Scheduled Orders Name Type Priority Associated Diagnoses Orde r Schedule POCT US ED GUIDANCE PIV Imaging STAT One Time for 1 Occurrences starting 04/13/2021 until 04/13/2021 POCT US ED GUIDANCE PIV Imaging STAT One Time for 1 Occurrences starting 04/13/2021 until 04/13/2021 documented as of this encounter Procedures Procedure Name Priority Date/Time Associated Diagnosis Comments ECG REPORT - SCANNED 04/17/2021 15:[address] ANGIO CHEST PE PROTOCOL STAT 04/13/2021 20:57 EDT POCT US ED CARDIAC STAT 04/13/2021 19 :18 EDT DIFFERENTIAL, AUTOMATED MANUAL Today 04/13/2021 18:23 EDT TROPONIN I STAT 04/13/2021 18:23 EDT LACTIC ACID STAT 04/13/2021 18:23 EDT D-DIMER STAT 04/13/2021 18:23 EDT COMPLETE BLOOD COUNT AND DIFFERENTIAL STAT 04/13/2021 18:23 EDT COMPREHENSIVE METABOLIC PANEL (CMP) STAT 04/13/2021 18:23 EDT XR CHEST PORTABLE 1 VIEW STAT 04/13/2021 16:19 EDT ZZCOVID-19 TEST [facility] PCR Today 04/13/2021 15:02 EDT COVID-19 TESTING Routine 04/13/2021 15:0 2 EDT ZZHN INFLUENZA A AND B, RSV PCR STAT 04/13/2021 15:02 EDT EKG 12-LEAD STAT 04/13/2021 13:08 EDT documented in this encounter Results * ECG REPORT - SCANNED (04/17/2021 15:32 EDT) 04/17/2021 15:3 2 EDT us Scan 2 Back Up Worker PROCEDURE/MINOR SURGICAL OR DERABLES Final Result * CT ANGIO CHEST PE PROTOCOL (04/13/2021 20:57 EDT) Anatomical Region Laterality Modality Chest Computed Tomogra phy 04/14/2021 8:59 EDT Impressions 04/14/2021 8:59 EDT 1. ??No evidence of pulmonary embolism. 2. ??Mildly prominent mediastinal lymph nodes, similar to March 2020. 3. ??Unchanged linear scarring or atelectasis in the left upper lobe. 4. ??Redemonstrated findings of portal hypertension. I have personally reviewed the images and the above interpretation and agree with the findings. Narrative 04/14/2021 8:[address] ANGIO CHEST PE PROTOCOL ??04/13/2021 8:35 PM Clinical History/Comments: PE suspected, intermediate prob, positive D-dimer Technique: A contrast-enhanced helical CT acquisition of [...] CTA of the chest Comparison: CT PE on 04/19/2020.. Findings: Opacification of the pulmonary vasculature is good. No acute or chronic emboli are seen within the pulmonary arterial vasculature. Lower neck: No abnormalities. Chest wall soft tissues: No abnormalities. Mediastinum and leobardo: There are mildly enlarged mid right pretracheal node and nonenlarged nodes are stable. ??Esophagus and central airways are normal size. Heart and mediastinal vasculature: ??Cardiac chambers and great vessels are normal size. No evidence of right heart strain. No pericardial disease. Lungs: ??The airways look thickened although some of this may be due to underinflation. Areas of decreased attenuation throughout both lungs likely reflect air trapping. There is a small cyst in the lingula and linear scarring or atelectasis is present at the base of the lingula. No suspicious nodules or areas of consolidation are present. Pleura: No abnormalities. Upper abdomen (limited to upper abdomen, not optimized for abdominal imaging): Redemonstrated cirrhotic configuration of the liver, portal hypertension with enlarged portal veins and splenomegaly.. Bones: ??No compression deformities or concerning osseous lesions. Procedure Note Colt Burciaga MD - 04/14/2021 CT ANGIO CHEST PE PROTOCOL 04/13/2021 8:35 PM Clinical History/Comments: PE suspected, intermediate prob, positive D-dimer Technique: A contrast-enhanced helical CT acquisition of [...] CTA of the chest Comparison: CT PE on 04/19/2020.. Findings: Opacification of the pulmonary vasculature is good. No acute or chronicemboli are seen within the pulmonary arterial vasculature. Lower neck: No abnormalities. Chest wall soft tissues: No abnormalities. Mediastinum and leobardo: There are mildly enlarged mid right pretracheal nodeand nonenlarged nodes are stable. Esophagus and central airways arenormal size. Heart and mediastinal vasculature: Cardiac chambers and great vessels arenormal size. No evidence of right heart strain. No pericardial disease. Lungs: The airways look thickened although some of this may be due tounderinflation. Areas of decreased attenuation throughout both lungslikely reflect air trapping. There is a small cyst in the lingula andlinear scarring or atelectasis is present at the base of the lingula. Nosuspicious nodules or areas of consolidation are present. Pleura: No abnormalities. Upper abdomen (limited to upper abdomen, not optimized for abdominalimaging): Redemonstrated cirrhotic configuration of the liver, portalhypertension with enlarged portal veins and splenomegaly.. Bones: No compression deformities or concerning osseous lesions. IMPRESSION 1. No evidence of pulmonary embolism. 2. Mildly prominent mediastinal lymph nodes, similar to March 2020. 3. Unchanged linear scarring or atelectasis in the left upper lobe. 4. Redemonstrated findings of portal hypertension. I have personally reviewed the images and the above interpretation andagree with the findings. Fatoumata Willett PA-C James CT ORDERABLES Final Result * POCT US ED CARDIAC (04/13/2021 19:18 EDT) Anatomical Region Laterality Modality Ultrasound 04/13/2021 19:2 9 EDT Narrative 04/21/2021 0:37 EDT [facility] - Ultrasound Exam Date: 04/13/2021 Exam Type: POCT US ED CARDIAC Tax Examining Technician: Karol Mejia MD Attending: Karol Mejia MD Worksheet: [id number] (POCT US ED CARDIAC) Exam Information: Exam Type: ?? Clinically indicated Indication(s) for Exam: ?? The exam was performed with the following indications: Chest pain Views Obtained & Images Saved for These Views: ?? The pericardial sac, myocardium, 4 chambers, and IVC were identified using the following views: ALL OF THE VIEWS ABOVE WERE OBTAINED Findings: ?? Pericardial Effusion: Small pericardial effusion ?? Cardiac activity: Cardiac activity normal ?? LV function: Normal (> 50% EF) ?? RV diameter: Normal Interpretation: ?? Normal limited cardiac ultrasound ?? Other: trace pericardial fluid Confirmatory study: US POCUS Preliminary Signature: ?? POCUS Preliminary Signature: Not signed Physician Signature: ?? I review and approve of the documentation above.: Signed by Karol Mejia MD on Wednesday, April 21, 2021 at 12:37:05 AM This exam was performed and interpreted by the [facility] ED Staff Procedure Note Karol Mejia MD - 04/21/2021 [facility] - Ultrasound Exam Date: 04/13/2021 Exam Type: POCT US ED CARDIAC Tax Examining Technician: Karol Mejia MD Attending: Karol Mejia MD Worksheet: [id number] (POCT US ED CARDIAC) Exam Information: Exam Type: Clinically indicated Indication(s) for Exam: The exam was performed with the following indications: Chest pain Views Obtained & Images Saved for These Views: The pericardial sac, myocardium, 4 chambers, and IVC were identifiedusing the following views: ALL OF THE VIEWS ABOVE WERE OBTAINED Findings: Pericardial Effusion: Small pericardial effusion Cardiac activity: Cardiac activity normal LV function: Normal (> 50% EF) RV diameter: Normal Interpretation: Normal limited cardiac ultrasound Other: trace pericardial fluid Confirmatory study: US POCUS Preliminary Signature: POCUS Preliminary Signature: Not signed Physician Signature: I review and approve of the documentation above.: Signed by Lokesh PHIPPS on Wednesday, April 21, 2021 at 12:37:05 AM This exam was performed and interpreted by the [facility] ED Staff us Karol Mejia MD [facility] [place] POCT US ORDERABLES Final Result * (ABNORMAL) DIFFERENTIAL, AUTOMATED MANUAL (04/13/2021 18:23 EDT) % Neutrophils 85.8 % 04/13/2021 19:43 EDT [facility] % Lymphocytes 8.9 % 04/13/2021 19:43 T [facility] % Monocytes 3.5 % 04/13/2021 19:43 [facility] % Eosinophils 1.8 % 04/13/2021 19:43 [facility] Absolute Neutrophils 1.56(L) 2.20 - 8.85 K/cmm 04/13/2021 19:43 [facility] Absolute Lymphocytes 0.16(L) 1.09 - 3.30 K/cmm 04/13/2021 19:43 [facility] Absolute Monocytes 0.06(L) 0.10 - 0.80 K/cmm 04/13/2021 19:43 [facility] Absolute Eosinophils 0.03 0.03 - 0.61 K/cmm 04/13/2021 19:43 [facility] Blood VENOUS BLOOD / Unknown Venipuncture / Unknown 04/13/2021 18:23 EDT 04/13/2021 18:35 EDT Fatoumata Willett PA-C HEMATOLOGY & PF4 ORDERA BLES Final Result [facility] [address] [place] [address] * (ABNORMAL) D-DIMER (04/13/2021 18:23 EDT) D-Dimer 1,084(H) <=230 ng/mL DDU 04/13/2021 19:05 EDT [facility] Blood VENOUS BLOOD / Unknown Venipuncture / Unknown 04/13/2021 18:23 EDT 04/13/2021 18:35 EDT Narrative [facility] - 04/13/2021 19:05 EDT Cutoff value for the exclusion of DVT and PE: 230 ng/mL D-dimer units. Any use of the age-adjusted cutoff value is a post-analytic modification of this FDA-approved test and is considered off-label use of the test result. [facility] does not have literature to support the validity of an age-adjusted cutoff for our specific assay. Fatoumata Malissa Joseok PA-C HEMATOLOGY & PF4 ORDERA BLES Final Result Performing Organization Address [facility] Co de Phone Number [facility] [address] [place] [address] * TROPONIN I (04/13/2021 18:23 EDT) Troponin I (ng/mL) <0.034 <0.034 ng/mL 04/13/2021 19:12 EDT [facility] Blood VENOUS BLOOD / Unknown Venipuncture / Unknown 04/13/2021 18:23 EDT 04/13/2021 18:34 EDT Narrative [facility] - 04/13/2021 19:12 EDT The results of this assay can be falsely lowered due to the consumption of Biotin. Fatoumata A Brennon PA-C CHEMISTRY & BLOOD GAS O RDERABLES Final Result Performing Organization Address [facility] Co de Phone Number [facility] [address] [place] [address] * LACTIC ACID (04/13/2021 18:23 EDT) Pathologist [facility] Lactic Acid 1.1 <=2.0 mmol/L 04/13/2021 19:03 EDT [facility] Blood VENOUS BLOOD / Unknown Venipuncture / Unknown 04/13/2021 18:23 EDT 04/13/2021 18:34 EDT Fatoumata Leonardo Brennon PA-C CHEMISTRY & BLOOD GAS O RDERABLES Final Result Performing Organization Address City/[facility]/ZIP Co de Phone Number [facility] [address] [place] [address] * (ABNORMAL) COMPREHENSIVE METABOLIC PANEL (CMP) (04/13/2021 18:23 EDT) Pathologist [facility] Sodium 137 136 - 145 mEq/L 04/13/2021 19:03 [facility] Potassium 4.5 3.5 - 5.0 mEq/L 04/13/2021 19:03 [facility] Chloride 103 96 - 110 mEq/L 04/13/2021 19:03 [facility] CO2 Total 26 22 - 32 mEq/L 04/13/2021 19:03 [facility] Glucose 93 70 - 100 mg/dL 04/13/2021 19:03 [facility] BUN 16 10 - 26 mg/dL 04/13/2021 19:03 [facility] Creatinine 1.25(H) 0.52 - 1.04 mg/dL 04/13/2021 19:03 [facility] eGFR 47(L) >60 mL/min/1.7 3m2 04/13/2021 19:03 [facility] Comment:eGFR calculated lobito coppola CKD-EPI equation for non- Americans. Multiply eGFR by 1.16 for patients. Total Protein 6.1(L) 6.3 - 8.2 g/dL 04/13/2021 19:03 [facility] Albumin 3.3(L) 3.4 - 4.9 g/dL 04/13/2021 19:03 [facility] Alkaline Phosphatase 69 38 - 126 U/L 04/13/2021 19:03 [facility] AST 22 15 - 46 U/L 04/13/2021 19:03 [facility] ALT 13 <35 U/L 04/13/2021 19:03 [facility] Bilirubin, Total <0.5 <1.4 mg/dL 04/13/20 19:03 [facility] Calcium 8.8 8.5 - 10.5 mg/dL 04/13/2021 19:03 [facility] Calculated Calcium 9.4 8.5 - 10.5 mg/dL 04/13/2021 19:03 [facility] Blood VENOUS BLOOD / Unknown Venipuncture / Unknown 04/13/2021 18:23 EDT 04/13/2021 18:34 EDT Fatoumata Willett PA-C CHEMISTRY & BLOOD GAS O RDERABLES Final Result [facility] [address] [place] [address] * (ABNORMAL) COMPLETE BLOOD COUNT AND DIFFERENTIAL (04/13/2021 18:23 EDT) WBC 1.82(L) 4.00 - 12.40 K/cmm 04/13/2021 18:54 EDT [facility] RBC 3.64(L) 3.86 - 5.04 M/cmm 04/13/2021 18:54 [facility] Hemoglobin 10.5(L) 11.6 - 15.2 gm/dL 04/13/2021 18:54 [facility] HCT 31.5(L) 34.9 - 44.4 % 04/13/2021 18:54 [facility] MCV 87 81 - 98 fl 04/13/2021 18:54 [facility] MCH 28.8 26.7 - 33.3 pg 04/13/2021 18:54 [facility] MCHC 33.3 32.1 - 35.9 gm/dL 04/13/2021 18:54 [facility] RDW-CV 13.7 <14.7 % 04/13/2021 18:54 [facility] RDW-SD 43.3 <50.4 fl 04/13/2021 18:54 [facility] PLT 44(L) 141 - 377 K/cmm 04/13/2021 18:54 [facility] MPV 10.2 9.5 - 12.7 fl 04/13/2021 18:54 [facility] Type of Differential: Manual 04/13/2021 18:54 [facility] Blood VENOUS BLOOD / Unknown Venipuncture / Unknown 04/13/2021 18:23 EDT 04/13/2021 18:35 EDT Fatoumata Willett PA-C PACKAGES & DNA PROBE OR DERABLES Final Result [facility] [address] [place] [address] * XR CHEST PORTABLE 1 VIEW (04/13/2021 16:19 EDT) Anatomical Region Laterality Modality Computed Radiogr aphy 04/13/2021 16:3 1 EDT Impressions 04/13/2021 16:31 EDT 1. The cardiac silhouette is larger than on the previous examination. Recommend echo for further evaluation. 2. Likely mild edema Results were discussed with FATOUMATA WILLETT Narrative 04/13/2021 16:31 EDT XR CHEST PORTABLE 1 VIEW ??04/13/2021 4:05 PM CLINICAL HISTORY/COMMENTS: ROBB Technique: Single AP of the chest was obtained. Comparison: February 11, 2021 Findings: Soft tissues: ??No significant abnormalities. Bones: ??Within normal limits for age. Cardiac and mediastinal contours: The cardiac silhouette is larger than on the previous exam. Lungs: ??The pulmonary vessels are slightly indistinct. Linear opacity is again seen in the lingula. Pleura: ??No obvious abnormalities Procedure Note Brandy Zhao MD - 04/13/2021 XR CHEST PORTABLE 1 VIEW 04/13/2021 4:05 PM CLINICAL HISTORY/COMMENTS: ROBB Technique: Single AP of the chest was obtained. Comparison: February 11, 2021 Findings: Soft tissues: No significant abnormalities. Bones: Within normal limits for age. Cardiac and mediastinal contours: The cardiac silhouette is larger than onthe previous exam. Lungs: The pulmonary vessels are slightly indistinct. Linear opacity isagain seen in the lingula. Pleura: No obvious abnormalities IMPRESSION 1. The cardiac silhouette is larger than on the previous examination.Recommend echo for further evaluation. 2. Likely mild edema Results were discussed with FATOUMATA WILLETT us Fatoumata Willett PA-C IMG DIAGNOSTIC IMAGING ORDERABLES Final Result * COVID-19 TEST [facility] PCR (04/13/2021 15:02 EDT) Swab ENTIRE NASOPHARYNX / Unknown Swab / Unknown 04/13/2021 15:02 EDT 04/13/2021 15:[address] [facility]-C MICROBIOLOGY - GENERAL ORDERABLES Final Result [facility] [address] [place] [address] * INFLUENZA A AND B,RSV PCR (04/13/2021 15:02 EDT) FLU A RNA Result (FLARES) Negative Negative 04/13/2021 16:19 EDT [facility] FLU B RNA Result (FLBRES) Negative Negative 04/13/2021 16:19 EDT [facility] RSV RNA Result (RSVRES) Negative Negative 04/13/2021 16:19 EDT [facility] Performing Lab [facility]pert [facility] 04/13/2021 16:19 EDT [facility] Swab ENTIRE NASOPHARYNX / Unknown Swab / Unknown 04/13/2021 15:02 EDT 04/13/2021 15:[address] [facility]-C MICROBIOLOGY - GENERAL ORDERABLES Final Result [facility] [address] [place] [address] * COVID-19 TESTING (04/13/2021 15:02 EDT) COVID-19 rt-PCR Result Negative Negative 04/13/2021 16:17 EDT [facility] Performing Lab [facility] 04/13/2021 16:17 EDT [facility] Swab ENTIRE NASOPHARYNX / Unknown Swab / Unknown 04/13/2021 15:02 EDT 04/13/2021 15:08 EDT us Casi Alva PA-C MICROBIOLOGY - GENERAL ORDERABLES Final Result [facility] [address] [place] [address] * EKG 12-LEAD (04/13/2021 13:08 EDT) 04/13/2021 13:0 8 EDT Narrative [facility] EKG - 04/17/2021 15:26 EDT ?[facility] Emergency ? Test Date: ?2021-04-13 Pat Name: ? PHYLISS BOOTHE ?Department: ?? ED ? Room: ? Gender: ? Female ? 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 [id number] : ?1960 ? Requested By: XOCHILT HAMMONDS Order Number: [id number] ? Jose PHIPPS: ?? LAURENT GREGG SA, MD ? Measurements Intervals ?Mcgregor ? Rate: ? 73 ? P: ?54 OK: ? 145 ?QRS: ?62 QRSD: ? 94 ? T: ?29 QT: ? 388 ? QTc: ?428 ? Interpretive Statements SINUS RHYTHM WITH SINUS ARRHYTHMIA Automated Interpretation. ??Provider Interpretation to follow. Compared to ECG 02/11/2021 17:43:22 T-wave abnormality no longer present I reviewed the tracing and have either agreed or edited the findings in this report. Electronically Signed On 04-17-2021 15:26:22 EDT by LAURENT GREGG SA, MD. 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 Provider Interpretation to follow. Compared to ECG 02/11/2021 17:43:22 T-wave abnormality no longer present I reviewed the tracing and have either agreed or edited the findings inthis report. Electronically Signed On 04-17-2021 15:26:22 EDT by LAURENT PEDRO SA, MD. us Jordan Arizmendi MD CARDIAC ECG ORDERABL ES Final Result [facility] EKG documented in this encounter Visit Diagnoses Diagnosis Pancytopenia (HCC-CMS)- Primary Other pancytopenia Wheezing Bronchitis Bronchitis, not specified as acute or chronic documented in this encounter Administered Medications Inactive Administered Medications - up to 3 most recent administrations Medication Order MAR Action Action Date Dose Rate Site azithromycin (ZITHROMAX) tablet 500 mg 500 mg, oral, NOW X1, 1 dose, On Tue04/13/21 at 2200, STAT Given 04/13/2021 22:20 EDT 500 mg iohexoL (OMNIPAQUE 350) solution 100 mL 100 mL, intravenous, Once in imaging, 1 dose, Starting on Tue04/13/21 at 2049, Until Tue04/13/21 at 2058, Routine, Imaging Protocol Orders Given 04/13/2021 20:58 EDT 65 mL ipratropium-albuteroL (DUONEB) 0.5 mg-3 mg(2.5 mg base)/3 mL nebulizer solution 3 mL 3 mL, nebulization, NOW X1, 1 dose, On Tue04/13/21 at 2200, STAT Given 04/13/2021 22:11 EDT 3 mL sodium chloride 0.9 % BOLUS 1,000 mL 1,000 mL, intravenous, NOW X1, 1 dose, On Tue04/13/21 at 1615, STAT New Bag 04/13/2021 18:30 EDT 1,000 mL documented in this encounter Active and Recently Administered Medications Times are shown in EDT. Scheduled Medication Order 04/11/2021 04/12/2021 04/13/2021 acetaminophen (TYLENOL) tablet 1,000 mg 1,000 mg, oral, NOW X1, 1 dose, On Tue04/13/21 at 1615, STAT 1831 (Not Given - Pr ovider: Inderjit Vickers RN - Reason: Patient/family refused) azithromycin (ZITHROMAX) tablet 500 mg (COMPLETED) 500 mg, oral, NOW X1, 1 dose, On Tue04/13/21 at 2200, STAT 2220 (Given - Provid er: Inderjit Vickers RN) iohexoL (OMNIPAQUE 350) solution 100 mL (COMPLETED) 100 mL, intravenous, Once in imaging, 1 dose, Starting on Tue04/13/21 at 2049, Until Tue04/13/21 at 2058, Routine, Imaging Protocol Orders 2057 (Given - Provid er: Teresa Michelle) ipratropium-albuteroL (DUONEB) 0.5 mg-3 mg(2.5 mg base)/3 mL nebulizer solution 3 mL (COMPLETED) 3 mL, nebulization, NOW X1, 1 dose, On Tue04/13/21 at 2200, STAT 2211 (Given - Provid er: Jodi Burroughs, RT) sodium chloride 0.9 % BOLUS 1,000 mL (COMPLETED) 1,000 mL, intravenous, NOW X1, 1 dose, On Tue04/13/21 at 1615, STAT 1830 (New Bag - Prov ider: Inderjit Vickers, KENN)2020 (Completed - Provider: Inderjit Vickers RN) documented in this encounter Orders Medications Ordered That Luc ht Not Have Been Administered Count Last Ordered Date First Ordered Date acetaminophen (TYLENOL) tablet 1,000 mg 1 0 04/13/2021 documented in this encounter Additional Health Concerns Infection Onset Date Last Indicated Resolved Time R/O COVID-19 Comment:Covid negative 04/13/2021 04/13/2021 04/13/2021 17:49 EDT documented as of this encounter Care Teams Home Health Care Worker Relationship Specialty Start Date End Date Emigdio Veronica MD [address] [place] [phone] PCP - General Internal Medicine - Primary Care 05/22/20 02/21/24 documented as of this encounter
--- OUTSIDE RECORDS SUMMARY | 2024-11-22 17:16 | XMS_ITS | Encounter Summary ---
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 Veronica. Outreach call to Tara as scheduled for 9 am. She answered but asked SW to call her later today, determined 3 pm would work. TOPIC OF CONVERSATION: Engaged patient in conversation related to positive behavior change, self- management, goal setting and action planning using motivational interviewing and active listening. ?? Tara reports she is moving out this weekend to a friend's house in [place]; these are friends who will support her to some medical appointments; son will assist with move (use of his car); rent is affordable ?? Educated on [employer] link re: emergency rental assistance, sent link via email - [email or web address] PLAN: Move this weekend, attend to medical appointments, reduce stress with new apartment .. Adult Primary Care [place], [address] [place] [address], [address], [place] Total Time: 15 min phone, 10 min email for care coordination, 5 min note Referral: [facility], [facility] Follow up: Date: Tuesday, March 30, 2021 Time: 10 AM With: Doris Joseph Radiographic Technologist Location: phone Status: Active documented in this encounter Plan of Treatment Upcoming Encounters Date Type Department Care Team (Late st Contact Info) Description 01/04/2025 13:00 EST Office Visit [facility] Ophthalmology - [address] [id number] Gagandeep Rome MD [address] [place] [address], [facility] [address] [place] [phone] 02/11/2025 13:[address] [facility] [place] [facility] - [address] [phone] Dana Padilla MD [address] [place] [address], [facility] [address] [place] [phone] documented as of this encounter Visit Diagnoses Not on filedocumented in this encounter Care Teams Mixing Machine Attendant Relationship Specialty Start Date End Date Emigdio Veronica MD [address] [place] [phone] PCP - General Internal Medicine - Primary Care 05/22/20 02/21/24 documented as of this encounter
--- OUTSIDE RECORDS SUMMARY | 2024-11-22 17:16 | XMS_ITS | Encounter Summary ---
Author Organization [facility] Address [address] [place] [address] Care Team Providers Care Yam Curer Name Role Phone Emigdio Veronica MD Primary Care Provider + Reason for Visit * Referral (Routine) - Closed Specialty Diagnoses / Procedures Referred By Contact Referred To Contact Gastroenterology and Hepatology Diagnoses Cirrhosis, nonalcoholic (HCC-CMS) Generalized abdominal pain Procedures UPPER ENDOSCOPY (EGD) Micheal Moseley MD PhD Phone: tel:[phone] fax:[phone] [facility] Gastroenterology - [address] [address] Phone: tel: fax: Referral ID Status Reason Start Date Expiration Date Visits Re quested Visits Authorized [id number] Closed 12/29/2020 1 1 Encounter Details Date Type Department Care Team (Late st Contact Info) Description 03/26/2021 9:07 EDT - 03/26/2021 23:59 EDT Hospital Encounter [facility] Endoscopy - [address] [address] Micheal Moseley MD PhD [address] [facility], Level 5 [place] [phone] Pradip Anesthesiologist Tremaine Mathew MD [address] [place] [address] Level 2 [place] [address] Discharge Disposition: Home or Self Care Social [...] 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 No / Unsure 03/26/2021 9:52 EDT documented as of this encounter Last Filed Vital Signs Vital Sign Reading Time Taken Comments Blood Pressure 99/52 03/26/2021 1105 EDT Pulse - - Temperature 36.2 ??C (97.2 ??F) 03/26/2021 1042 EDT Respiratory Rate 14 03/26/2021 1105 EDT Oxygen Saturation 94% 03/26/2021 1105 EDT Inhaled Oxygen Concentration - - Weight 90.7 kg (200 lb) 03/26/2021 0952 EDT Height 162.6 cm (5' 4) 03/26/2021 0952 EDT Body Mass Index 34.33 03/26/2021 0952 EDT [...] directed every 4 hours as needed. 1 ERGOCALCIFEROL, VITAMIN D2, (VITAMIN D ORAL) [...] mouth daily. 200 Tab 3 12/15/2020 1 omeprazole (PRILOSEC) 20 mg capsule Take [...] HFA aerosol inhaler inhalerIndicatio ns:COPD with asthma ([facility]) Inhale 2 Puffs as directed daily. 1 Inhaler 11 06/20/2020 1 traZODone (DESYREL) 100 mg tablet Take 1.5 tablets (150 mg) by mouth at HS as needed. 135 Tab 1 02/27/2021 1 documented as of this encounter Discharge Disposition Disposition Code Departure Means Destination Home or Self Care documented in this encounter H&P Notes * Micheal Moseley MD - 03/26/2021 1020 EDT Endoscopy Sedation for Procedure History & Physical Date: 03/26/2021 Time: 10:24 Location: [facility] Endoscopy - [facility] Planned Procedure: Upper Endoscopy Request Chief Complaint/Indications for Procedure: Cirrhosis, nonalcoholic (HCC-CMS), surveillance for varcies History Previous Complication with Sedation and/or Anesthesia? No Allergies: Allergies Allergen Reactions ??? Morphine Anaphylaxis ??? Sulfa (Sulfonamide Antibiotics) Anaphylaxis ??? Tylenol [Acetaminophen] Other (See Comments) Contraindication with medical hx ??? Aspirin Other (See Comments) Contraindication with medical hx ??? Injectafer [Ferric Carboxymaltose] ??? Lyrica [Pregabalin] Anxiety Insomnia ??? Reglan [Metoclopramide Hcl] Rash Current Medications: Current Outpatient Medications Medication ??? albuterol (ACCUNEB) 2.5 mg /3 mL (0.083 %) nebulizer solution ??? albuterol 90 mcg/actuation inhaler ??? ERGOCALCIFEROL, VITAMIN D2, (VITAMIN D ORAL) ??? ferrous gluconate (FERGON) 324 mg (38 mg iron) tablet ??? furosemide (LASIX) 20 mg tablet ??? levothyroxine (SYNTHROID) 25 mcg tablet ??? magnesium oxide (MAG-OX) 400 mg (241.3 mg magnesium) tablet ??? ondansetron (ZOFRAN) 4 mg tablet ??? OXYGEN-AIR DELIVERY SYSTEMS MISC ??? sertraline (ZOLOFT) 50 mg tablet ??? spironolactone (ALDACTONE) 100 mg tablet ??? SYMBICORT 160-4.5 mcg/actuation HFA aerosol inhaler inhaler ??? traZODone (DESYREL) 100 mg tablet Current Facility-Administered Medications Medication Route Frequency ??? atropine 0.1 mg/mL syringe 0.5 mg intravenous PRN ??? diphenhydrAMINE (BENADRYL) injection 25 mg intravenous Once PRN ??? sodium chloride 0.9 % (NS) infusion intravenous PRN Or ??? lactated ringers (LR) infusion intravenous PRN ??? lactated ringers (LR) infusion intravenous CONTINUOUS ??? lidocaine (PF) 10 mg/mL (1 %) injection 2 mg intradermal PRN ??? lidocaine (PF) 10 mg/mL (1 %) injection 2 mg intradermal PRN ??? naloxone (NARCAN) injection 0.2 mg intravenous PRN ??? sodium chloride 0.9 % [...] Per Dr Amelia Tijerina and notes from [facility] patient misconstrued information to several [...] leg edema - see 11/20/2020 Dr. Cy HigginsP ??? Hypersplenism syndrome ??? Hypersplenism syndrome ??? [...] use: No Alcohol/week: 0.0 standard drinks Family History: Family History Problem Relation Age of Onset ??? Cancer Maternal Grandmother skin ??? Diabetes Mother ??? Coronary Artery Disease Father ??? Clotting Disorder Father ??? Diabetes Brother Review of Systems as pertinent: Physical Exam Vital Signs: BP 105/61 Temp 35.7 ??C (96.3 ??F) (Tympanic) Resp 16 Ht 162.6 cm (64) Wt 90.7 kg (200 lb) SpO2 97% BMI 34.33 kg/m?? Heart Examination: Cardiac Regularity: [...] procedure Fasting Time: Date of Last Liquid: 03/25/21 Time of Last Liquid: 2100 Date of Last Solid: 03/25/21 Time of Last Solid: 1800 Patient Appropriate Candidate for Planned Sedation?: Yes Micheal Moseley MD 03/26/2021 10:24 documented in this encounter Plan of Treatment Upcoming Encounters Date Type Department Care Team (Late st Contact Info) Description 01/04/2025 13:00 EST Office Visit [facility] Ophthalmology - [address] [phone] Gagandeep Rome MD [address] [place] [address], [facility] 5 [place] [phone] 02/11/2025 13:30 EDT Telemedicine [facility] Hematology & Oncology - [address] [phone] Dana Padilla MD [address] [place] [address], [facility] 2 [place] [address] documented as of this encounter Procedures Procedure Name Priority Date/Time Associated Diagnosis Comments UPPER ENDOSCOPY PROCEDURE Routine 03/26/2021 10:47 EDT SURGICAL PATHOLOGY Routine 03/26/2021 10 :33 EDT documented in this encounter Results * UPPER ENDOSCOPY PROCEDURE (03/26/2021 10:47 EDT) Anatomical Region Laterality Modality Endoscopy Narrative 03/26/2021 10:47 EDT Procedure Performed EGD Indications for Exam Cirrhosis, screening for varices Procedure Technique Informed consent was obtained after explaining all the risks (perforation, bleeding, infection and adverse effects to the medicine), benefits and alternatives to the procedure. ??The patient was connected to the monitoring devices and placed in the left lateral position. Continuous oxygen was provided with a nasal cannula and IV medicine administered through a indwelling cannula. After adequate sedation was achieved, ??the scope was advanced throught the mouth under direct visualization to the distal duodenum. The distal duodenum was identified by visual landmarks. The scope was subsequently removed slowly while carefully examining the color, texture, anatomy, and integrity of the mucosa on withdrawal. The patient was subsequently transferred to the recovery area in satisfactory condition. Estimated Blood Loss: None Complications None Medications MAC Anesthesia See Anesthesia Record Findings Esophagus: Distal erythema c/w esophagits Stomach: Pyloric channel ulcer with clean base, small hiatal henia, cold forceps biopsies taken antrum and body Duodenum: Normal Diagnosis Pyloric channel ulcer Small hital hernia Mild distal esophagitis Gastiric biopsies taken Recommendations PPI for 12 weeks Follow biopsy results. Repeat EGD in 2 years. The??procedure??was??performed??by??Dr. Blayne Sung M.D. in the presence of Dr. Micheal Moseley. The attending physician was in the room for the entire procedure. This electronic signature authenticates all electronic and/or handwritten documentation, including orders, generated by the signer during the episode of care contained in this record. 03/26/2021 10:47:35 AM By Micheal Msoeley MD Micheal Moseley MD PhD GI PROCEDURE ORDERABLES Final Result * SURGICAL PATHOLOGY (03/26/2021 10:33 EDT) Final Diagnosis A. STOMACH, ANTRUM, BIOPSY: - Gastric fundic mucosa with no significant diagnostic abnormalities. - Negative for Helicobacter pylori on H&E stained sections. B. STOMACH, BODY, BIOPSY: - Antral mucosa with reactive (chemical) gastropathy. - Negative for Helicobacter pylori on H&E stained sections. 03/30/2021 9:31 [facility] Attestation There was significant resident/fellow involvement in the diagnostic evaluation of this case. By the signature below, the attending physician certifies that they have personally conducted a gross and/or microscopic examination of the described specimens and rendered or confirmed the above diagnosis. 03/30/2021 9:31 [facility] at 0931 Clinical History Cirrhosis 03/30/2021 9:31 [facility] Gross Description A. Received in formalin labelled with proper patient identification (initials B, P) and gastric antrum Bx are three pale pascual tissues (0.6 x 0.2 x 0.1 cm to 0.2 x 0.2 by less than 0.1 cm). Entirely submitted in A1. B. Received in formalin labelled with proper patient identification (initials B, P) and gastric body Bx are three pale pascual to pink tissues (0.3 x 0.3 x 0.2 cm to 0.2 x 0.2 x 0.1 cm). Entirely submitted in B1. Norberto Carpenter 03/26/2021 13:58 03/30/2021 9:31 EDT [facility] Resident/Dilip w: Gagandeep Negro DO 03/30/2021 9:31 EDT [facility] Performing Lab [facility] 03/30/2021 9:31 EDT [facility] Scanned Images 03/30/2021 9:31 EDT [facility] Tissue SPECIMEN FROM STOMACH OBTAINED BY TOTAL GASTRECTOMY / Unknown 03/26/2021 10:33 EDT 03/26/2021 11:54 EDT Comment:Cirrhosis Tissue specimen (specimen) SPECIMEN FROM STOMACH OBTAINED BY TOTAL GASTRECTOMY / Unknown 03/26/2021 10:37 EDT 03/26/2021 11:54 EDT Comment:Cirrhosis us Micheal Moseley MD PhD PATHOLOGY ORDERABLES Fi nal Result [facility] [address] [place] [address] documented in this encounter Visit Diagnoses Not [...] 03/26/2021 9:58 EDT 30 mL/hr 30 mL/hr documented in this encounter Discontinued Medications Medication Sig Discontinue Reason Start Date End Da te docusate sodium (COLACE) 100 mg capsule TAKE 1 CAPSULE BY MOUTH TWICE A DAY Therapy completed 09/01/2020 03/26/2021 documented as of this encounter Orders Medications Ordered That Luc ht Not Have Been Administered Count Last Ordered Date First Ordered Date atropine 0.1 mg/mL syringe 0.5 mg 1 021 diphenhydrAMINE (BENADRYL) injection 25 mg 1 03/26/2021 lactated ringers (LR) infusion 1 03/26/2021 lidocaine (PF) 10 mg/mL (1 % ) injection 2 mg 2 03/26/2021 naloxone (NARCAN) injection 0.2 mg 1 2020 sodium chloride 0.9 % (flush) flush 3 mL 1 03/26/2021 sodium chloride 0.9 % (flush) flush 5 mL 1 03/26/2021 sodium chloride 0.9 % (NS) infusion 1 03/26 documented in this encounter Care Teams Yam Curer Relationship Specialty Start Date End Date Emigdio Veronica MD [address] [place] [phone] PCP - General Internal Medicine - Primary Care 05/22/20 02/21/24 documented as of this encounter
--- OUTSIDE RECORDS SUMMARY | 2024-11-22 17:16 | XMS_ITS | Encounter Summary ---
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 States she will have testing done there. Removing order from que documented in this encounter Plan of Treatment Upcoming Encounters Date Type Department Care Team (Late st Contact Info) Description 01/04/2025 13:00 EST Office Visit [facility] Ophthalmology - [address] [phone] Gagandeep Rome MD [address] [place] [address] 5 [place] [address] 02/11/2025 13:30 EDT Telemedicine [facility] Hematology & Oncology - [address] [phone] Dana Padilla MD [address] [place] [address], [facility] 2 [place] [phone] documented as of this encounter Visit Diagnoses Not on filedocumented in this encounter Care Teams Water Main Installer Helper Relationship Specialty Start Date End Date Emigdio Veronica MD [address] [place] [phone] PCP - General Internal Medicine - Primary Care 05/22/20 02/21/24 documented as of this encounter
--- OUTSIDE RECORDS SUMMARY | 2024-11-22 17:16 | XMS_ITS | Encounter Summary ---
Author Organization 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 [...] 04/23/2021 13:50 DAVIDT Lynn Monroe RN * Do you have [...] Office Visit [facility] Ophthalmology - [address] [phone] Gagandeep Rome MD [address] [place] [address] 5 [place] [phone] 02/11/2025 13:30 EDT Telemedicine [facility] Hematology & Oncology - [address] [phone] Dana Padilla MD [address] [place] [address] 2 [place] [address] documented as of this encounter Visit Diagnoses Diagnosis Portal vein thrombosis- Primary documented in this encounter Care Teams Switch Inspector Relationship Specialty Start Date End Date Emigdio Veronica MD [address] [place] [phone] PCP - General Internal Medicine - Primary Care 05/22/20 02/21/24 documented as of this encounter
--- OUTSIDE RECORDS SUMMARY | 2024-11-22 17:16 | XMS_ITS | Encounter Summary ---
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 [...] Visit [facility] Ophthalmology - [address] [address] Gagandeep Rome MD [address] [place] [address], [facility] 5 [place] [phone] 02/11/2025 13:30 EDT Telemedicine [facility] Hematology & Oncology - [address] [phone] Dana Padilla MD [address] [place] [address], [facility] 2 [place] [phone] documented as of this encounter Visit Diagnoses Not on filedocumented in this encounter Care Teams Sales Commissions Analyst Relationship Specialty Start Date End Date Emigdio Veronica MD [address] [place] [phone] PCP - General Internal Medicine - Primary Care 05/22/20 02/21/24 documented as of this encounter
--- OUTSIDE RECORDS SUMMARY | 2024-11-22 17:16 | XMS_ITS | Encounter Summary ---
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 180 Cap 3 03/30/2021 04/23/2021 ondansetron (ZOFRAN) 4 mg tablet Take 1 Tab by mouth 2 times daily as needed for Nausea. 60 Tab 3 03/30/2021 10/02/2021 documented in this encounter Miscellaneous Notes * Telephone Encounter - Ebony Toscano - 03/30/2021 0959 EDT Requested Prescriptions Pending Prescriptions Disp Refills ??? ondansetron (ZOFRAN) 4 mg tablet 60 Tab 3 Sig: Take 1 Tab by mouth 2 times daily as needed for Nausea. Gabapentin, pt says Dr. Veronica Rx'd her 100 mg pills. She says she was told by an ER provider thatshe could take 300 mg. The pt says that is working well for her back pain. She is taking 300 mg twice daily. She wants to know if she can get an Rx for 300 mg, 1 BID. [facility]/pharmacy #[id number] - [address] Confirmed Pharmacy? Yes Patient out of medication? She is out of the Gabapentin Last Refill Date: Zofran: 11.20.20 Gabapentin: 01.06.21 - pt says she stopped taking it as at 100 mg it was not working. The 300 mg isworking. Refills left? (explain exceptions requiring early refill) No Recent Visits Date Type Provider Dept 03/06/21 Office Visit Emigdio Veronica MD [facility] 01/27/21 Office Visit Dom Mackay MD [place] [facility] 11/20/20 Office Visit Emigdio Veronica MD [facility] 10/15/20 Office Visit Emigdio Veronica MD [facility] 10/10/20 Office Visit Scottie Campuzano PA-C [place] [facility] 09/05/20 Office Visit Emigdio Veronica MD [place] [facility] 08/22/20 Office Visit Emigdio Veronica MD [place] [facility] 08/01/20 Office Visit Emigdio Veronica MD [facility] 06/23/20 Office Visit Emigdio Veronica MD [facility] 05/29/20 Office Visit Emigdio Veronica MD [facility] Showing recent visits within past 540 days with a meds authorizing provider and meeting all other requirements Future Appointments Date Type Provider Dept 04/10/21 Appointment Emigdio Veronica MD [place] [facility] Showing future appointments within next 150 days with a meds authorizing provider and meeting all other requirements Future appointment: Already Scheduled Ebony Toscano 03/30/2021 10:00 documented in this encounter Plan of Treatment Upcoming Encounters Date Type Department Care Team (Late st Contact Info) Description 01/04/2025 13:00 EST Office Visit [facility] Ophthalmology - [address] [phone] Gagandeep Rome MD [address] [place] [address], [facility] 5 [place] [phone] 02/11/2025 13:30 EDT Telemedicine [facility] Hematology & Oncology [address] [phone] Dana Padilla MD [address] [place] [address], [facility] 2 [place] [phone] documented as of this encounter Visit Diagnoses Not on filedocumented in this encounter Discontinued Medications Medication Sig Discontinue Reason Start Date End Da te ondansetron (ZOFRAN) 4 mg tablet Take 1 Tab by mouth 2 times daily as needed for Nausea. Reorder 11/20/2020 03/30/2021 documented as of this encounter Care Teams Inspector Materials And Processes Relationship Specialty Start Date End Date Emigdio Veronica MD [address] [place] [phone] PCP - General Internal Medicine - Primary Care 05/22/20 02/21/24 documented as of this encounter
--- OUTSIDE RECORDS SUMMARY | 2024-11-22 17:16 | XMS_ITS | Encounter Summary ---
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 [...] EST Office Visit [facility] Ophthalmology - [address] [phone] Gagandeep Rome MD [address] [place] [address], [facility] 5 [place] [phone] 02/11/2025 13:30 EDT Telemedicine [facility] Hematology & Oncology - [address] [address] Dana Padilla MD [address] [place] [address], [facility] 2 [place] [phone] documented as of this encounter Visit Diagnoses Not on filedocumented in this encounter Orders Immunization/Injection Count Last Ordered Date First Ordered Date COVID-19 MRNA VACCINE (PFIZE R COVID-19) PF 0.3 ML IM (16 YRS+) 1 04/01/2021 documented in this encounter Care Teams Racing Driver Relationship Specialty Start Date End Date Emigdio Veronica MD [address] [place] [phone] PCP - General Internal Medicine - Primary Care 05/22/20 02/21/24 documented as of this encounter
--- OUTSIDE RECORDS SUMMARY | 2024-11-22 17:17 | XMS_ITS | Encounter Summary ---
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 Mannequin Decorator explained to patient they need to be tested on 03/22 or 03/23 in order to get results back in time. Mannequin Decorator faxed order and will verify it was received. documented in this encounter Plan of Treatment Upcoming Encounters Date Type Department Care Team (Late st Contact Info) Description 01/04/2025 13:00 EST Office Visit [facility] Ophthalmology - [address] [phone] Gagandeep Rome MD [address] [place] [address] [address] [place] [phone] 02/11/2025 13:30 EDT Telemedicine [facility] Hematology & Oncology - [address] [phone] Dana Padilla MD [address] [place] [address], [facility] [address] [place] [phone] documented as of this encounter Visit Diagnoses Not on filedocumented in this encounter Care Teams Web Operations Administrator Relationship Specialty Start Date End Date Emigdio Veronica MD 2 [place] [phone] PCP - General Internal Medicine - Primary Care 05/22/20 02/21/24 documented as of this encounter
--- OUTSIDE RECORDS SUMMARY | 2024-11-22 17:17 | XMS_ITS | Encounter Summary ---
Author Organization [facility] Address [address] [place] [address] Care Team Providers Care Sec Reporting Consultant Name Role Phone Emigdio Veronica MD Primary Care Provider + Reason for Visit * Reason Onset Date Comments Loss of Consciousness 01/14/2021 Hypotension 01/14/2021 Encounter Details Date Type Department Care Team (Late st Contact Info) Description 01/14/2021 Telephone [facility] [place] [address] [place] [address] Emigdio Veronica MD [address] [place] [phone] Loss of Consciousness; Hypotension Social History Tobacco Use Types Packs/Day Years [...] Hard 05/22/2020 PHQ-2 Answer Date Recorded PHQ-2 Score 0 08/25/2020 Hunger Vital Sign Answer Date Recorded Within [...] 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 No / Unsure 12/29/2020 11:33 EST documented as of this encounter Functional [...] Telephone Encounter - Karol Hoff RN - 01/14/2021 1331 EST Patient called back that she can get a ride to ED between 2 and 230. [facility]. * Telephone Encounter - Emigdio Veronica MD - 01/14/2021 1041 EST Agree with plan for ED eval * Telephone Encounter - Karol Hoff RN - 01/14/2021 1011 EST Updated patient about the recommendations from Dr Sanchez below. The patient indicates understandingof these issues and agrees with the plan. No barriers. She will try to get a ride today, her fiance doesn't get out of work until 230 this afternoon. She will call back when she has a ride so report can be given to [facility]. She will call 911 if she has another episode. * Telephone Encounter - Bekah Ambriz MD - 01/14/2021 0950 EST I thnk she should go to ED today. * Telephone Encounter - Karol Hoff RN - 01/14/2021 0858 EST Spoke to patient who reports two LOC episodes yesterday. One in the afternoon unwitnessed, where she was standing at a counter for about 10 minutes and then turned to walk away and states she hit herhip, which is now sore, but denies bruising. Second episode was in the evening and witness by kris who states she lost consciousness for 2-3 minutes. After rousing BP as 82/46. During either episode patient denied chest pain/pressure, headache, palpitations/racing heart, back/abd pain, or quickly turning her head. Also denies any black/tarry stools or urinary symptoms. Has baseline kidney pain but states it is at her baseline level. She has been dealing with decreased appetite due to nausea, taking ondansetron twice daily with little relief, but states she is hydrating well. Is on two diuretics, which she has already taken this morning. She is not able to be seen in the clinic today due to transpiration and the current appointments, scheduled for tomorrow with Dr Sanchez, but trying get her in with Dr Veronica today. If she is not seen today she will get her scheduled BMP at [facility] this afternoon. Reivewed if fainting reoccurs she needs to be elevated at the ED and if she has any heart symptoms or headache she should call 911. She will take today easy, try to keep at least her usual level of hydration and avoid activities where she could be easily hurt if fainting. The patient indicates understanding of these issues and agrees with the plan. No barriers. Any recommendations prior to appointment? * Telephone Encounter - Ebony Toscano - 01/14/2021 0839 EST Reason for Call: Loss of Consciousness and Hypotension Summary/Symptoms: pt says yesterday she fainted twice, says she did not hit her head, says her hip is sore. Pt reports her BP was running low yesterday, the lowest reading was 88/46. Pt has not had any fainting spells yet today. Onset and Duration: yesterday Does the patient have a computer, laptop or smart phone with high speed & video capability? N/A If so, would they be interested in doing a video visit via Zoom? N/A Appointment Offered? No - Call transferred to triage. Ebony Toscano 01/14/2021 8:40 documented in this encounter Plan of Treatment Upcoming Encounters Date Type Department Care Team (Late st Contact Info) Description 01/04/2025 13:00 EST Office Visit [facility] - [address] [id number] Gagandeep Rome MD [address] [place] [address], [facility] [address] [place] [phone] 02/11/2025 13:30 EDT Telemedicine [facility] - [address] [address] Dana Padilla MD [address] [place] [address], [facility] [address] [place] [phone] documented as of this encounter Visit Diagnoses Not on filedocumented in this encounter Care Teams Sec Reporting Consultant Relationship Specialty Start Date End Date Emigdio Veronica MD [address] [place] [phone] PCP - General Internal Medicine - Primary Care 05/22/20 02/21/24 documented as of this encounter
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
--- OUTSIDE RECORDS SUMMARY | 2024-11-22 17:17 | XMS_ITS | Encounter Summary ---
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 Not on file [...] Office Visit [facility] Ophthalmology - [address] [phone] Gagandeep Rome MD [address] [place] [address] [address] [place] [address] 02/11/2025 13:30 EDT Telemedicine [facility] Hematology & Oncology - [address] [address] Dana Padilla MD [address] [place] [address] [address] [place] [address] documented as of this encounter Procedures Procedure Name Priority Date/Time Associated Diagnosis Comments CREATININE Routine 12/25/2020 ELECTROLYTES Routine 12/25/2020 documented in this encounter Results * CREATININE (12/25/2020) Creatinine, External 2.07 LAB GFR, Calculated, External 24 LAB Blood VENOUS BLOOD / Unknown 12/25/2020 us Historical Provider CHEMISTRY & BLOOD GAS ORD ERABLES Final Result LAB * ELECTROLYTES (12/25/2020) Sodium, External 135 LAB Potassium, External 5.5 LAB Chloride, External 103 LAB CO2, External 27 [facility] LAB Blood VENOUS BLOOD / Unknown 12/25/2020 us Historical Provider CHEMISTRY & BLOOD GAS ORD ERABLES Final Result LAB documented in this encounter Visit Diagnoses Not on filedocumented in this encounter Care Teams Ocular Pathologist Relationship Specialty Start Date End Date Emigdio Veronica MD [address] [place] [address] PCP - General Internal Medicine - Primary Care 05/22/20 02/21/24 documented as of this encounter
--- OUTSIDE RECORDS SUMMARY | 2024-11-22 17:17 | XMS_ITS | Encounter Summary ---
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 No / Unsure 01/19/2021 15:28 EST documented as of this encounter Functional [...] encounter Progress Notes * Doris Joseph - 01/26/2021 0935 EST Community Health Team Social Work Follow Up Visit Date of visit: 01/26/2021 Social Work follow up with Traa Yun for medical follow up, depression, housing. SUBJECTIVE: Reviewed assessment and plan from previous visit with pt. Tara states i'm not feeling great today. OBJECTIVE: Comment(s): phone contact TOPIC OF CONVERSATION: Engaged patient in conversation related to positive behavior change, self- management, goal setting and action planning using motivational interviewing and active listening. Discussed recent medical appointments and inpatient stays at [facility]. Tara would like to consider housing options, her step daughter ended up moving into a small one-bedroom apartment so she needs to find housing solo. SW discussed housing options and followed up with email: . Reports to feeling safe in the home but wants to get her own place, educated on Section 8 and housing authorities. Wants to try to stay in [facility]. Age Well [place] - this housing list is broken down by [facility], [place] is at the end and there are quite a few options for consideration - this agency can help you because you are age 60 and disabled - they have housing specialists who can help complete applications with you - 777.628.7724; here is thelist: https://www.[employer].org/documents/age-well/389-098-njuwto-housing-list/file [facility] Authority - Section 8 voucher application - https://www.FORVM.org/whouwnamxhcl-egi-izhzogb-8-assistance/ [employer] - 264-458-7991 -this is an agency that helps people who are under threat from a partner - not always physical abuse but also control and emotional abuse - here is their website: https://[employer].org/home Sometimes they can help expedite housing if the person is experience some type of fear of personal safety (includes emotional, financial, or physical) Housing Agencies (rent based on income, apply and get on waiting list) ??? [facility] https://[facility].org/property-category/independent-living/ (includes nadege zhao in [facility]) ??? [facility] - senior and disabled apartments https://[facility]/properties/properties-section.php?id=1 ??? [place] [employer] - https://www.[facility] [www.[facility].com][employer]built.introNetworks/for-applicants STAGE OF CHANGE: Preparation Patient's Primary Care Site: Adult Primary Care [address], [address], [place] Total Time: 20 min phone, 10 min care coordination email, 5 min note Referral: housing and age well Follow up: Date: Tuesday, February 16, 2021 Time: 9 AM With: Doris Joseph Keyboard Instrument Tuner Location: Phone Status: Active documented in this encounter Plan of Treatment Upcoming Encounters Date Type Department Care Team (Late st Contact Info) Description 01/04/2025 13:00 EST Office Visit [facility] Ophthalmology - [address] [phone] Gagandeep Rome MD [address] [place] [address] 5 [place] [phone] 02/11/2025 13:30 EDT Telemedicine [facility] Hematology & Oncology - [address] [phone] Dana Padilla MD [address] [place] [address], [facility] 2 [place] [phone] documented as of this encounter Visit Diagnoses Not on filedocumented in this encounter Care Teams Bilingual Receptionist Relationship Specialty Start Date End Date Emigdio Veronica MD [address] [place] [phone] PCP - General Internal Medicine - Primary Care 05/22/20 02/21/24 documented as of this encounter
--- OUTSIDE RECORDS SUMMARY | 2024-11-22 17:17 | XMS_ITS | Encounter Summary ---
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 No / Unsure 02/11/2021 17:25 EDT documented as of this encounter Functional [...] Visit [facility] Ophthalmology - [address] [phone] Gagandeep Rome MD [address] [place] [address] 5 [place] [phone] 02/11/2025 13:30 EDT Telemedicine [facility] Hematology & Oncology - [address] [phone] Dana Padilla MD [address] [place] [address] 2 [place] [phone] documented as of this encounter Visit Diagnoses Diagnosis Encounter for preprocedure screening laboratory testing for COVID-19- Primary documented in this encounter Care Teams Photographic Restorer Relationship Specialty Start Date End Date Emigdio Veronica MD 2 [place] [phone] PCP - General Internal Medicine - Primary Care 05/22/20 02/21/24 documented as of this encounter
--- OUTSIDE RECORDS SUMMARY | 2024-11-22 17:17 | XMS_ITS | Encounter Summary ---
Author Organization 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 SUBJECTIVE: Reviewed assessment and plan from previous visit with pt. Tara states I've been sick, spent the last few weeks in/out of the ED. OBJECTIVE: Comment(s): Phone TOPIC OF CONVERSATION: Engaged patient in conversation related to positive behavior change, self- management, goal setting and action planning using motivational interviewing and active listening. -Reflected on recent health issues including recovering from pneumonia - poor sleep, fatigue all day, stress -Discussed staying inpatient when recommended by PCP and poor experience in ED at [facility] -Agreed that focusing on recovery now is primary, confirmed she received email re: housing considerations and can review in future Patient's Primary Care Site: Adult Primary Care [address], [address], [place] Total Time: 25 min phone, 5 min note Referral: na Follow up: Date: Tuesday, March 16, 2021 Time: 9 AM With: Doris Joseph Line Erector Apprentice Location: Phone Status: Active documented in this encounter Plan of Treatment Upcoming Encounters Date Type Department Care Team (Late st Contact Info) Description 01/04/2025 13:00 EST Office Visit [facility] Ophthalmology - [address] [phone] Gagandeep Rome MD [address] [place] [address], [facility] 5 [place] [phone] 02/11/2025 13:[address] [facility] Hematology & Oncology - [address] [address] Dana Padilla MD [address] [place] [address], [facility] 2 [place] [phone] documented as of this encounter Visit Diagnoses Not on filedocumented in this encounter Care Teams Molecular Geneticist Relationship Specialty Start Date End Date Emigdio Veronica MD 2 [place] [phone] PCP - General Internal Medicine - Primary Care 05/22/20 02/21/24 documented as of this encounter
--- OUTSIDE RECORDS SUMMARY | 2024-11-22 17:17 | XMS_ITS | Encounter Summary ---
Author Organization [facility] Address [address] [place] [address] Care Team Providers Care Manager Global Name Role Phone Emigdio Veronica MD Primary Care Provider + Reason for Visit * Reason Onset Date Comments Results 03/05/2021 Encounter Details Date Type Department Care Team (Late st Contact Info) Description 03/05/2021 Telephone [facility] Hematology & Oncology - [facility] [address] [place], [place] [phone] Starr Paige MD [address] [place] [phone] Results Social History Tobacco Use Types Packs/Day [...] 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 Maritzaministerio Beltran 03/05/2021 16:12 documented in this encounter Plan of Treatment Upcoming Encounters Date Type Department Care Team (Late st Contact Info) Description 01/04/2025 13:00 EST Office Visit [facility] Ophthalmology - [address] [phone] Gagandeep Rome MD [address] [place] [address], [facility] 5 [place] [address] 02/11/2025 13:30 EDT Telemedicine [facility] Hematology & Oncology - [address] [phone] Dana Padilla MD [address] [place] [address], [facility] 2 [place] [phone] documented as of this encounter Procedures Procedure Name Priority Date/Time Associated Diagnosis Comments COMPREHENSIVE METABOLIC PANEL (ONCOLOGY USE ONLY-INC MG) Routine 03/05/2021 documented in this encounter Results * (ABNORMAL) COMPREHENSIVE METABOLIC PANEL (ONCOLOGY USE ONLY-INC MG) (03/05/2021) Calcium, External 8.9 [facility] CO2, External 33(A) 22 - 30 [facility] AST, External [facility] ALT, External [facility] Bilirubin, Total, External [facility] Creatinine, External 1.32(A) 0.52 - 1.04 [facility] Calculated Calcium, External [facility] Anion Gap, External [facility] Total Protein, External [facility] Potassium, External 4.6 [facility] Total Alkaline Phosphatase, External [facility] Albumin, External [facility] BUN, External 19(A) 7 - 17 [facility] GFR, Calculated, External 41(A) >=60 [facility] Fasting?, External [facility] Chloride, External 93(A) 98 - 107 [facility] Glucose, Serum, External 74 [facility] Sodium, External 133(A) 137 - 145 [facility] Magnesium, External [facility] Blood VENOUS BLOOD / Unknown 03/05/2021 us Historical Provider CHEMISTRY & BLOOD GAS ORD ERABLES Final Result [facility] documented in this encounter Visit Diagnoses Not on filedocumented in this encounter Care Teams Manager Global Relationship Specialty Start Date End Date Emigdio Veronica MD [address] [place] [phone] PCP - General Internal Medicine - Primary Care 05/22/20 02/21/24 documented as of this encounter
--- OUTSIDE RECORDS SUMMARY | 2024-11-22 17:17 | XMS_ITS | Encounter Summary ---
Author Organization [facility] Address [address] [place] [address] Care Team Providers Care Eap Consultant Name Role Phone Emigdio Veronica MD Primary Care Provider + Reason for Visit * Reason Comments Telemedicine Phone Call Post-hospitaliza tion visit Encounter Details Date Type Department Care Team (Late st Contact Info) Description 01/21/2021 14:00 EST Telemedicine [facility] Adult Primary Care - [place] [address] [place] [address] Emigdio Veronica MD [address] [place] [phone] Other specified hypotension (Primary Dx); Other cirrhosis of liver (HCC-CMS); MUSA (acute kidney injury) (HCC-CMS); Muscle cramps; Healthcare maintenance Social History Tobacco Use Types [...] 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 30 Tab 1 01/21/2021 04/10/2021 documented in this encounter Progress Notes * Emigdio Veronica MD - 01/21/2021 1400 EST TELEMEDICINE PHONE VISIT The concept of ???Telemedicine?? [...] mental health care. The patient confirms chronic abdominal, leg pain. The following staff and their role did participate in today's encounter visit: Emigdio Veronica MD Medications, allergies and history reviewed. Current Outpatient Medications Medication ??? albuterol (ACCUNEB) 2.5 mg /3 mL (0.083 %) nebulizer solution ??? albuterol 90 mcg/actuation inhaler ??? docusate sodium (COLACE) 100 mg capsule ??? ERGOCALCIFEROL, VITAMIN D2, (VITAMIN D ORAL) ??? ferrous gluconate (FERGON) 324 mg (38 mg iron) tablet ??? furosemide (LASIX) 20 mg tablet ??? gabapentin (NEURONTIN) 100 mg capsule ??? hydrOXYzine (ATARAX) 25 mg tablet ??? levothyroxine (SYNTHROID) 25 mcg tablet ??? LUSUTROMBOPAG ORAL ??? magnesium oxide (MAG-OX) 400 mg (241.3 mg magnesium) tablet ??? ondansetron (ZOFRAN) 4 mg tablet ??? oxyCODONE (ROXICODONE) 5 mg immediate release tablet ??? OXYGEN-AIR DELIVERY SYSTEMS MISC ??? phenazopyridine (PYRIDIUM) 200 mg tablet ??? predniSONE (DELTASONE) 20 mg tablet ??? SENNA LAXATIVE 8.6 mg tablet ??? sertraline (ZOLOFT) 25 mg tablet ??? spironolactone (ALDACTONE) 100 mg tablet ??? SYMBICORT 160-4.5 mcg/actuation HFA aerosol inhaler inhaler ??? TAMSulosin (FLOMAX) 0.4 mg capsule ??? traZODone (DESYREL) 100 mg tablet No current facility-administered medications for this visit. Facility-Administered Medications Ordered in Other Visits Medication Route Frequency ??? albuterol (ACCUNEB) 2.5 mg /3 mL (0.083 %) nebulizer solution S: Tara Yun is a 60 y.o. female with PMHx of COPD, asthma, cirrhosis, panycotpenia who presents with a CC: of post-hospitalization follow-up Gena states that she was admitted overnight to [facility] on 01/14/21 after an episode of syncope. Records from this admission are currently unavailable. She states that she was told that her systolic blood pressures were very low on arrival to the s and she was ultimately given IV fluids with a quick recovery in her pressures. Notably her creatinine at 1.19 was dramatically improved from earlier this year (>2.0) after cutting down on her diuretics. She was discharged to home on 01/15 and states that she has felt well since. She has noticed that her blood pressure remains low around the 80-90systolic range however and she notes at least one transient episode of lightheadedness. She denies any episodes of presyncope. She notes she is continuing to struggle with the intermittent presence of bilateral leg cramps thatshe describes as salazar horse in nature. She notes compliance with her OTC magnesium. She is not currently take vitamin B supplementation. She is currently on gabapentin at 100 mg TID with little rel ief. She is also curious about whether she should schedule a COVID-19 vaccine once eligible with the state. ROS as above O: There were no vitals taken for this visit. Recent Labs/Imaging: Reviewed in Epic A and P: Diagnoses and all orders for this visit: Hypotension: Likely secondary to liver cirrhosis and diuretic regiment. - Will reduce lasix from 40 mg daily to 20 mg daily - Encouraged patient to continue to monitor her blood pressure MUSA (acute kidney injury) ([facility]): Related to overdiuresis and recovering well with diuretic reduction. Creatinine at OSH down to 1.19 from 2.0 earlier this year. - Lasix reduction as above - Repeat BMP prior to next visit in February Muscle cramps: Unclear etiology - Continue supplemental magnesium - Continue gabapentin 100 mg TID - Encouraged patient to add Vitamin B supplement daily - Will follow-up at next visit, if cramp frequency is unchanged low threshold to increase to Healthcare maintenance - Encouraged the patient to obtain COVID-19 vaccine once made available to her age group. F/u: No follow-ups on file. I spent a total of 25 minutes with this patient today over the phone, in chart review and in documentation and 22 minutes of that time was spent on education and counseling for hypotension, MUSA, cirrhosis, muscle cramps, health maintenance. Emigdio Veronica MD 01/22/2021 8:20 documented in this encounter Plan of Treatment Upcoming Encounters Date Type Department Care Team (Late st Contact Info) Description 01/04/2025 13:00 EST Office Visit [facility] Ophthalmology - [address] [phone] Gagandeep Rome MD [address] [place] [address], [facility] 5 [place] [phone] 02/11/2025 13:30 EDT Telemedicine [facility] Hematology & Oncology - [address] [phone] Dana Padilla MD [address] [place] [address], [address] [place] [phone] documented as of this encounter Visit Diagnoses Diagnosis Other specified hypotension- Primary Other cirrhosis of liver (HCC-CMS) MUSA (acute kidney injury) ([facility]) Acute kidney failure, unspecified Muscle cramps Cramp of limb Healthcare maintenance Routine general medical examination at a health care facility documented in this encounter Discontinued Medications Medication Sig Discontinue Reason Start Date End Da te furosemide (LASIX) 40 mg tablet TAKE 2 TABLETS BY MOUTH EVERY DAY Dose adjustment 12/12/2020 01/21/2021 spironolactone (ALDACTONE) 50 mg tablet Take one 50 mg tablet with one 100 mg tablet daily for a total of 150 mg daily. Dose adjustment 11/06/2020 01/21/2021 documented as of this encounter Care Teams Eap Consultant Relationship Specialty Start Date End Date Emigdio Veronica MD [address] [place] [phone] PCP - General Internal Medicine - Primary Care 05/22/20 02/21/24 documented as of this encounter
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
--- OUTSIDE RECORDS SUMMARY | 2024-11-22 17:17 | XMS_ITS | Encounter Summary ---
Author Organization [facility] Address [address] [place] [address] Care Team Providers Care Wardsperson Name Role Phone Emigdio Veronica MD Primary Care Provider + Reason for Visit * Reason Comments Urinary Tract Infection Encounter Details Date Type Department Care Team (Late st Contact Info) Description 01/27/2021 10:30 EST Office Visit [facility] Adult Primary Care - [place] [address] [place] [address] Dom Mackay [employer] [address] [place] [address] Urinary tract infection symptoms (Primary Dx); Urinary retention Social History Tobacco Use Types Packs/Day Years [...] 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 No / Unsure 01/19/2021 15:28 EST documented as of this encounter Last Filed Vital Signs Vital Sign Reading Time Taken Comments Blood Pressure 100/64 01/27/2021 1033 EST Pulse 60 01/27/2021 1033 EST Temperature 36.5 ??C (97.7 ??F) 01/27/2021 1033 EST Respiratory Rate 14 01/27/2021 1033 EST Oxygen Saturation - - Inhaled Oxygen Concentration - - Weight 97.5 kg (215 lb) 01/27/2021 1033 EST Height 162.6 cm (5' 4) 01/27/2021 1033 EST Body Mass Index 36.9 01/27/2021 1033 EST documented in this encounter Functional Status * Are you deaf or do you have serious difficulty hearing? Answer Date of Assessment Author No 12/17/2020 17:00 EST Jeet Allen RN * Are you blind or do you have serious difficulty seeing, even when wearing glasses? Answer Date of Assessment Author No 12/17/2020 17:00 EST Jeet Allen RN * Do you have serious difficulty [...] Refills Last Filled Start Date End Date cefpodoxime (VANTIN) 200 mg tablet Take 1 Tab by mouth every 12 hours for 10 days. 20 Tab 01/27/2021 02/06/2021 ciprofloxacin HCl (CIPRO) 500 mg tablet Take 1 Tab by mouth 2 times daily for 7 days. 14 Tab 01/27/2021 01/27/2021 documented in this encounter Progress Notes * Dom Mackay MD - 01/27/2021 1030 EST Primary Care Clinic Acute Visit Patient: Tara Yun is a 60 y.o. female Service Date: 01/27/2021 Chief Complaint: No chief complaint on file. Subjective Tara has been experiencing urinary retention, dysuria, and peripheral edema for three to four days. About a week ago, her lasix and spironolactone were reduced after a syncopal episode, with low blood pressures measured. She additionally had a follow up with urology after a stent placed for suspected ureteral stone, but no stone was detected on ureteroscopy with stent removed. An US on 01/19 wasreassuring during her Urology visit. Generally feels today that she cannot empty her bladder, with abdominal and back pain that are somewhat chronic for her. She feels she has put on weight, is tired, and experiencing nausea. Additional history of cirrhosis but states she has not had ascites. Review of Systems Pertinent positives and negatives as above. Medical History Past Medical History: Diagnosis Date ??? Anemia ??? Anxiety ??? Asthma 12/10/2020 currently not taking - mild persistent - see dr. Veronica 11/20/2021 ??? Bleeding disorder (HCC-CMS) ??? Bursitis right shoulder ??? C. difficile colitis 07/25/2015 Hospitalized after kidney stone removal ??? Chronic ITP (idiopathic thrombocytopenia) (HCC-CMS) 12/10/2020 - see 11/20/2020 Dr. Glenys Denton, (managed by Starr Paige MD) ??? Chronic kidney disease ??? Cirrhosis of liver (HCC-CMS) ??? Clotting disorder (HCC-CMS) ??? COPD exacerbation (HCC-CMS) 04/26/2020 ??? Depression ??? Does not exercise ??? Drug-seeking behavior Per Dr Amelia Tijerina and notes from [facility] patient misconstrued information to several providers about multiple concurrent opiate prescriptions ??? Environmental allergies ??? GERD (gastroesophageal reflux disease) 12/10/2020 does not wake pt at night ??? Heartburn ??? Hemorrhagic disorder (HCC-CMS) ??? History of general anesthesia ??? History of kidney stones ??? History of nephrolithiasis ??? History of peripheral edema 12/10/2020 - bilateral leg edema - see 11/20/2020 Dr. Cy Denton ??? Hypersplenism syndrome ??? Hypersplenism syndrome ??? Hypothyroidism ??? Joint replaced 199912/10/2020 nya knees ??? QUIROZ (nonalcoholic steatohepatitis) ??? Oxygen dependent 12/10/2020 HS ??? Rheumatoid arthritis ??? Shortness of breath ??? Sleep apnea ??? Thrombocytopenia (HCC-CMS) 12/10/2020 - see 11/20/2020 Dr. Glenys Denton, (managed by Starr Paige MD) ??? Thyroid disease Objective Vitals BP 100/64 (BP Cuff Location: Right arm, BP Patient Position: Sitting, BP Cuff Sizes: Adult, regular) Pulse 60 Temp 36.5 ??C (97.7 ??F) (Temporal) Resp 14 Ht 162.6 cm (64) Wt 97.5 kg (215 lb) BMI 36.90 kg/m?? Physical Exam General: Awake, no signs of acute distress Resp: Normal WOB, lungs clear to ausculation bilaterally, mild end expiratory wheeze, no crackles Cardiac: Dual heart sounds, RRR, no murmurs, gallops, rubs GI: Soft, mild diffuse tenderness, pronounced along lower quadrant, bowel sounds present, hernia RUQ Extremities: 1+ peripheral edema bilaterally Medications Current Outpatient Medications Medication Sig Note Dispense Refill ??? albuterol (ACCUNEB) 2.5 mg /3 mL (0.083 %) nebulizer solution USE 1 VIAL VIA NEBULIZER 4 TIMES A DAY NEEDED ??? albuterol 90 mcg/actuation inhaler Inhale 2 Puffs as directed every 4 hours as needed. ??? cefpodoxime (VANTIN) 200 mg tablet Take 1 Tab by mouth every 12 hours for 10 days. 20 Tab 0 ??? docusate sodium (COLACE) 100 mg capsule TAKE 1 CAPSULE BY MOUTH TWICE A DAY 60 Cap 11 ??? ERGOCALCIFEROL, VITAMIN D2, (VITAMIN D ORAL) Take by mouth. 12/10/2020: 12/10/2020 currently nottaking ??? ferrous gluconate (FERGON) 324 mg (38 mg iron) tablet Take 324 mg by mouth daily with breakfast. 12/10/2020: 12/10/2020 currently not taking ??? furosemide (LASIX) 20 mg tablet Take 1 Tab by mouth daily. 30 Tab 1 ??? gabapentin (NEURONTIN) 100 mg capsule Take 1 Cap by mouth 3 times daily. 90 Cap 2 ??? hydrOXYzine (ATARAX) 25 mg tablet TAKE 1 TABLET BY MOUTH AT BEDTIME NEEDED 90 Tab 3 ??? levothyroxine (SYNTHROID) 25 mcg tablet Take 1 Tab by mouth daily. Unknown dose (Patient takingdifferently: Take 25 mcg by mouth daily before breakfast. ) 90 Tab 3 ??? LUSUTROMBOPAG ORAL Take 3 mg by mouth daily. 12/10/2020: 12/10/2020 currently not taking ??? magnesium oxide (MAG-OX) 400 mg (241.3 mg magnesium) tablet Take 1 Tab by mouth daily. 200 Tab 3 ??? ondansetron (ZOFRAN) 4 mg tablet Take 1 Tab by mouth 2 times daily as needed for Nausea. 60 Tab3 ??? oxyCODONE (ROXICODONE) 5 mg immediate release tablet Take 1 Tab by mouth 2 times daily as needed for Pain. Daily Max: 10 mg (Patient not taking: Reported on 01/27/2021) 20 Tab 0 ??? OXYGEN-AIR DELIVERY SYSTEMS MISC 2 L by misc (non-drug; combo route) route at bedtime. 12/03/2020: Uses at night when sleeping ??? phenazopyridine (PYRIDIUM) 200 mg tablet Take 1 Tab by mouth 3 times daily as needed for Pain. (Patient not taking: Reported on 01/27/2021) 10 Tab 0 ??? predniSONE (DELTASONE) 20 mg tablet TAKE 3 TABLETS BY MOUTH ONCE DAILY FOR 4 DAYS, START TOMORROW (11/18) ??? SENNA LAXATIVE 8.6 mg tablet TAKE 1 TABLET BY MOUTH EVERYDAY AT BEDTIME 30 Tab 11 ??? sertraline (ZOLOFT) 25 mg tablet Take 25 mg by mouth daily. ??? spironolactone (ALDACTONE) 100 mg tablet Take 1 Tab by mouth daily. (Patient taking differently: Take 150 mg by mouth daily before breakfast. ) 01/27/2021: Pt states taking 100 MG 90 Tab 3 ??? SYMBICORT 160-4.5 mcg/actuation HFA aerosol inhaler inhaler Inhale 2 Puffs as directed daily. (Patient taking differently: Inhale 2 Puffs as directed daily before breakfast. ) 1 Inhaler 11 ??? TAMSulosin (FLOMAX) 0.4 mg capsule Take 1 Cap by mouth at bedtime. (Patient not taking: Reported on 01/27/2021) 90 Cap 3 ??? traZODone (DESYREL) 100 mg tablet Take 1 Tab by mouth at bedtime. 90 Tab 0 No current facility-administered medications for this visit. Facility-Administered Medications Ordered in Other Visits Medication Dose Route Frequency Provider Last Rate Last Admin ??? albuterol (ACCUNEB) 2.5 mg /3 mL (0.083 %) nebulizer solution Assessment Tara Yun is a 60 y.o. female with a past MHx of hypothyroidism, nephrolithiasis, hypersplenism, asthma, abdominal wall hernia, obesity, HUEY, COPD that presents with urinary symptoms. UA consistent with UTI, directing for cultures, starting on antibiotics. Will recheck her CMP to monitor for any concurrent MUSA. Peripheral edema, but given her low systolics and syncope, will not adjust lasixat this time. Plan Diagnoses and all orders for this visit: Urinary tract infection symptoms - POCT URINE CLINITEK (DIPSTICK) - DOES NOT REFLEX - BACTERIAL CULTURE, URINE - cefpodoxime (VANTIN) 200 mg tablet; Take 1 Tab by mouth every 12 hours for 10 days. Urinary retention - COMPREHENSIVE METABOLIC PANEL (CMP); Future - Will consider renal imaging pending CMP. - Hold to current lasix and spironolactone. Patient Instructions There are no Patient Instructions on file for this visit. Follow Up Return if symptoms worsen or fail to improve. I spent a total of 40 minutes in face to face time with this patient today, counseling and performing coordination of care as described in the progress note. Signed by, Dom Mackay MD, PhD [facility] 01/27/2021 12:57 documented in this encounter Plan of Treatment Upcoming Encounters Date Type Department Care Team (Late st Contact Info) Description 01/04/2025 13:00 EST Office Visit [facility] Ophthalmology - [address] [id number] Gagandeep Rome MD [address] [place] [address], [facility] [address] [place] [address] 02/11/2025 13:30 EDT Telemedicine [facility] Hematology & Oncology - [address] [address] Dana Padilla MD [address] [place] [address], [facility] [address] [place] [address] documented as of this encounter Procedures Procedure Name Priority Date/Time Associated Diagnosis Comments BACTERIAL CULTURE, URINE Routine 01/27/2021 12:59 EST Urinary tract infection symptoms POCT URINE DIPSTICK, CLINITEK Routine 01/27/2021 10:54 EST Urinary tract infection symptoms POCT CSN BARCODE URINE DIPSTICK Routine 01/27/2021 10:47 EST Urinary tract infection symptoms POCT URINE CLINITEK (DIPSTICK) - DOES NOT REFLEX Routine 01/27/2021 10:47 EST Urinary tract infection symptoms documented in this encounter Results * (ABNORMAL) COMPREHENSIVE METABOLIC PANEL (CMP) (04/08/2021 7:37 EDT) Sodium 138 136 - 145 mEq/L 04/08/2021 11:18 [facility] Potassium 4.1 3.5 - 5.0 mEq/L 04/08/2021 11:18 [facility] Chloride 102 96 - 110 mEq/L 04/08/2021 11:18 [facility] CO2 Total 26 22 - 32 mEq/L 04/08/2021 11:18 [facility] Glucose 112(H) 70 - 100 mg/dL 04/08/2021 11:18 [facility] BUN 16 10 - 26 mg/dL 04/08/2021 11:18 [facility] Creatinine 1.21(H) 0.52 - 1.04 mg/dL 04/08/2021 11:18 [facility] eGFR 49(L) >60 mL/min/1.7 3m2 04/08/2021 11:18 [facility] Comment:eGFR calculated lobito coppola CKD-EPI equation for non- Americans. Multiply eGFR by 1.16 for patients. Total Protein 6.2(L) 6.3 - 8.2 g/dL 04/08/2021 11:18 [facility] Albumin 3.5 3.4 - 4.9 g/dL 04/08/2021 11:18 [facility] Alkaline Phosphatase 110 38 - 126 U/L 04/08/2021 11:18 [facility] AST 25 15 - 46 U/L 04/08/2021 11:18 [facility] ALT 16 <35 U/L 04/08/2021 11:18 [facility] Bilirubin, Total <0.5 <1.4 mg/dL 04/08/20 11:18 [facility] Calcium 8.5 8.5 - 10.5 mg/dL 04/08/2021 11:18 [facility] Calculated Calcium 8.9 8.5 - 10.5 mg/dL 04/08/2021 11:18 [facility] Blood VENOUS BLOOD / Unknown Venipuncture / Unknown 04/08/2021 7:37 EDT 04/08/2021 7:37 EDT Dom [facility]A CHEMISTRY & BLOOD GAS O RDERABLES Final Result Performing Organization Address City/[facility]/ZIP Co de Phone Number [facility] [address] [place] [address] * BACTERIAL CULTURE, URINE (01/27/2021 12:59 EST) Organism ID [id number] to 100,000 CFU/ml Usual urogenital tiffanie. 01/29/2021 7:31 EST [facility] Urine URINE SPECIMEN COLLECTION, CLEAN CATCH / Unknown Urine Collect / Unknown 01/27/2021 12:59 EST 01/27/2021 12:59 EST Dom [facility] MICROBIOLOGY - GENERAL ORDERABLES Final Result Performing Organization Address City/[facility]/ZIP Co de Phone Number [facility] [address] [place] [address] * (ABNORMAL) POCT URINE DIPSTICK, CLINITEK (01/27/2021 10:54 EST) Color, UA Yellow Yellow 01/27/2021 10:52 EST [facility] Clarity, UA Cloudy(A) Clear 01/27/2021 10:52 [facility] Glucose, UA Negative Negative mg/dL 01/27/2021 10:52 [facility] Bilirubin, UA Negative Negative 01/27/2021 10:52 [facility] Ketones, UA Negative Negative mg/dL 01/27/2021 10:52 [facility] Specific [place], Urine 1.015 1.001 - 1.035 01/27/2021 10:52 [facility] Blood, UA 2+(A) Negative 01/27/2021 10:52 [facility] pH, UA 7.0 <=8 01/27/2021 10:52 [facility] Protein, UA Negative Negative mg/dL 01/27/2021 10:52 [facility] Urobilinogen, UA 0.2 0.2 - 1.0 EU/dL 01/27/2021 10:52 [facility] Nitrite, UA Negative Negative 01/27/2021 10:52 [facility] Leuk Esterase 2+(A) Negative 01/27/2021 10:52 [facility] commercial lending vice president ID [id number] 01/27/2021 10:52 [facility] HN LAB COMMENT (CLINITEK, UR) Test performed at [facility] 01/27/2021 10:52 [facility] Urine URINE SPECIMEN COLLECTION, CLEAN CATCH / Unknown 01/27/2021 10:54 EST 01/27/2021 10:52 EST us Dom MAYA POINT OF CARE TEST DEMI CARDENAS Final Result [facility] [address] [place] [address] * POCT CSN BARCODE URINE DIPSTICK (01/27/2021 10:47 EST) Hold Hold 01/27/2021 12:01 [facility] Urine URINE SPECIMEN COLLECTION, CLEAN CATCH / Unknown 01/27/2021 10:47 EST 01/27/2021 10:47 EST us Dom [facility] LAB INFO SERVICE AND [facility] [place] PPORT & PHONE RESULT Final Result [facility] [address] [place] [address] documented in this encounter Visit Diagnoses Diagnosis Urinary tract infection symptoms- Primary Other symptoms involving urinary system Urinary retention Retention of urine, unspecified documented in this encounter Discontinued Medications Medication Sig Discontinue Reason Start Date End Da te ciprofloxacin HCl (CIPRO) 500 mg tablet Take 1 Tab by mouth 2 times daily for 7 days. Alternate therapy 01/27/2021 01/27/2021 documented as of this encounter Care Teams Wardsperson Relationship Specialty Start Date End Date Emigdio Veronica MD [address] [place] [phone] PCP - General Internal Medicine - Primary Care 05/22/20 02/21/24 documented as of this encounter
--- OUTSIDE RECORDS SUMMARY | 2024-11-22 17:17 | XMS_ITS | Encounter Summary ---
Author Organization 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 Patient aware of recommendation to return to ER. Family is not available until 4 or 430. Will go to ER then.patient does not want to go to [facility] ER. Report called to [facility] ER. Received records form ER visit yesterday. To pcp to review. * Telephone Encounter - Emigdio Veronica MD - 02/10/2021 1423 EDT Agree with initial golf starter and ranger that based on her reports of worsening fever, dyspnea and malaise that ED prsentation is the most appropriate. If she refuses I would advise Telemedicine evaluation today. I do not have any openings so it wouldhave to be with another available provider. The alternative would be to see me tomorrow as planned, though I would have a low treshold for ED presentation if her symptoms worsen further today or tonight. Her visit tomorrow should be switched to telemedicine given her acute symptoms and it should be cancelled if she opts to see someone else today. * Telephone Encounter - Jes Mayorga RN - 02/10/2021 1402 EDT Patient was at [facility] ER. Went Tuesday morning at 330 am. Took x rays. Patient had pnuemonia. Patient opted to go home instead of Patient went to eR yesterday. Patient Patient given IV antibiotics in ER. Right now Has fever of 100.4 Complains of being very short of breath. Patient wears oxygen. Doesn't have pulse oximetry. Yesterday o2 sats were 92-95 on room air. Wears oxygen at night and is 2 liters. Using nebulizer using twice a day. Using inhaler 3-4 times a day. Using symbicort twice a day. No other inhalers. Not bringing anything up when coughs. Breathing is tight. Patient is not eating. Tried to eat, sick to stomach tried zofran an When gets up the room spins. Weak to walk. Joints feel like jelly Referred to Er. Patient does not want to return to ER as they wont keep her. To PCP for review.? OV today in person? Keep visit tomorrow? * Telephone Encounter - Karol Copeland - 02/10/2021 1357 EDT Pt calling again, reports pneumonia is getting worse, pt was seen at [facility] ED yesterday. Pt states she is starting to spike a fever again and has SOB. Pt wondering if there's something she should do now or wait for her appt with Dr. Veronica tomorrow? * Telephone Encounter - Noemi Hall - 02/09/2021 1239 EDT appointment is cancelled for now for the US. Will call patient and see when she thinks she will be able to make an appointment before scheduling Update: patient will call radiology or us when she is ready to reschedule US appt. * Telephone Encounter - Heike Mcleod RN - 02/09/2021 1135 EDT Call from pt Has not felt good since got home from hospital tuesday States they had wanted to keep her but she wanted to come home Off balance Weak BP 179/98 today. states BP runs low typically SOB worse today than was this weekend Taking zofran for nausea. Not able to eat anything. Was nauseas when went to hospital Tuesday. Was dx with PNA Has not slept since got home. Has not slept except for more than an hr at a time Hurts to take deep breath Fever tuesday night 100.4 . Took a couple advil. Feeling Cold a little chest pain but she thinks this is pressure from PNA Cough dry Fiance can drive her to [facility] ER which is closest The patient indicates understanding of these issues and agrees with the plan. Report called to Lynda HAWK Pt has u/s scheduled for 1 pm at [facility]. Needs to have this rescheduled. Can PSS call to take care of this? * Telephone Encounter - Noemi Hall - 02/09/2021 1131 EDT Patient states she is having a hard time breathing right now. Feeling very dizzy and weird * Telephone Encounter - Emigdio Veronica MD - 02/06/2021 1445 EDT Ok for in person OV next week * Telephone Encounter - Claudine Santa RN - 02/06/2021 1355 EDT Called pt and she reports waking at 0330 this morning being unable to breathe. She went to the ED at [facility] where she was diagnosed with pneumonia. She had developed cough and SOB over the last 24 hours. Feeling much better following a dose of IV steroids. She returned home a little while ago and someone has just brought her the 3 prescriptions that were filled. DC summary doesn't have the doses. Reports says - Disp: home with strict return precaution. Rx for augmentin, doxy, prednisone. Pt reports that the doxy is 100 mg tablets, take 1 BID x 7 days. Augmentin, take 1 tablet BID X 7 days Prednisone 20 mg tablets, take 3 tablets PO daily, #12 (four day supply). She states that a COVID test was done in the ED and was negative although I cannot see that in the report that was sent (although may not be complete since just from this morning). Called [facility] ED and spoke with Rai charge nurse and he verified a tier 1 COVID test was done and result was negative. He faxed over the negative COVID result and it is with the ED report in basket. Pt feeling much better than when she went to the ED this morning. Breathing is much better. No fevers. She verbalized understanding how to take her medications. Current dose of lasix increased to 40 mg daily earlier this week due to worsening edema. She had labs done in the ED and report states BUN 18, creatinine 1.22 and GFR 45 (see 02/02/21 telephone encounter requesting these). Pt wanted to schedule a f/u with PCP. Given OV with Dr. Veronica on at 4:00. Given in person visit. (Pt aware will contact her if this needs to be changed to video visit). Reviewed reasons pt should call the clinic in the next few days and when she should return to the ED. The patient indicates understanding of these issues and agrees with the plan. Dr. Veronica, is in person ok for this pt or would you prefer changed to video? OV visit is not until 02/11 (5 days from now) and negative COVID 19 test was this morning. * Telephone Encounter - Noemi Hall - 02/06/2021 1321 EDT Reason for Call: Follow-up and Pneumonia Summary/Symptoms: patient was just at ED this morning and diagnosed with pneumonia. Patient states the hospital wanted to admit for but she declined. They asked her to follow up with PCP office. Notes did arrive today from [facility]. In CCA/TRUST VAULT CLERK basket Onset and Duration: this morning Does the patient have a computer, laptop or smart phone with high speed & video capability? No Telephone only If so, would they be interested in doing a video visit via Zoom? telephne Appointment Offered? No Noemi Hall 02/06/2021 13:21 documented in this encounter Plan of Treatment Upcoming Encounters Date Type Department Care Team (Late st Contact Info) Description 01/04/2025 13:00 EST Office Visit [facility] Ophthalmology - [address] [phone] Gagandeep Rome MD [address] [place] [address], [facility] [address] [place] [phone] 02/11/2025 13:30 EDT Telemedicine [facility] Hematology & Oncology - [address] [phone] Dana Padilla MD [address] [place] [address], [facility] [address] [place] [phone] documented as of this encounter Visit Diagnoses Not on filedocumented in this encounter Historical Medications * This list may reflect changes made after this encounter. Medication Sig Dispense Quantity Refills Last Filled Start D ate End Date doxycycline (VIBRA-TABS) 100 mg tablet 02/06/2021 03/19/2021 amoxicillin-clavulana te (AUGMENTIN) 875-125 mg per tablet 02/06/2021 added in this encounter Care Teams High School Social Studies Tutor Relationship Specialty Start Date End Date Emigdio Veronica MD [address] [place] [phone] PCP - General Internal Medicine - Primary Care 05/22/20 02/21/24 documented as of this encounter
--- OUTSIDE RECORDS SUMMARY | 2024-11-22 17:17 | XMS_ITS | Encounter Summary ---
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 Not [...] documented in this encounter Progress Notes * Jude Santiago - 01/19/2021 1530 EST Renal ultrasound performed 01/19/2021 documented in this encounter Plan of Treatment Upcoming Encounters Date Type Department Care Team (Late st Contact Info) Description 01/04/2025 13:00 EST Office Visit [facility] Ophthalmology - [address] [phone] Gagandeep Rome MD [address] [place] [address], [facility] [address] [place] [phone] 02/11/2025 13:30 EDT Telemedicine [facility] Hematology & Oncology - [address] [phone] Dana Padilla MD [address] [place] [address], [facility] [address] [place] [phone] documented as of this encounter Visit Diagnoses Diagnosis Nephrolithiasis- Primary Calculus of kidney documented in this encounter Care Teams Craniologist Relationship Specialty Start Date End Date Emigdio Veronica MD [address] [place] [phone] PCP - General Internal Medicine - Primary Care 05/22/20 02/21/24 documented as of this encounter
--- OUTSIDE RECORDS SUMMARY | 2024-11-22 17:17 | XMS_ITS | Encounter Summary ---
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 135 Tab 1 02/27/2021 documented in this encounter Miscellaneous Notes * Telephone Encounter - Claudine Santa RN - 02/27/2021 1549 EDT Last prescription was from PCP on 12/26/20 for 100 mg at HS dose, #90, 0 RF. The 02/12/21 telephone encounter has instruction from Zeina ELDRIDGE that ok to increase to either 125 mg or 150 mg at HS. A new order is pended. * Telephone Encounter - Xuan Jimenez - 02/27/2021 1248 EDT Trazadone 150mg tablet take 1 tablet at bedtime #90 Dr. Veronica increased dose from 100mg to 150mg so a new prescription is needed. [facility]/pharmacy #[id number] Confirmed Pharmacy? Yes Patient out of medication? Yes: Needs Refill Now Last Refill Date: 12/26/2020 Refills left? (explain exceptions requiring early refill) No Recent Visits Date Type Provider Dept 01/27/21 Office Visit Dom Mackay MD [facility] 11/20/20 Office Visit Emigdio Veronica MD [facility] 10/15/20 Office Visit Emigdio Veronica MD [facility] 10/10/20 Office Visit Scottie Campuzano PA-C [facility] 09/05/20 Office Visit Emigdio Veronica MD [facility] 08/22/20 Office Visit Emigdio Veronica MD [facility] 08/01/20 Office Visit Emigdio Veronica MD [facility] 06/23/20 Office Visit Emigdio Veronica MD [facility] 05/29/20 Office Visit Emigdio Veronica MD [facility] 05/22/20 Office Visit Emigdio Veronica MD [facility] Showing recent visits within past 540 days with a meds authorizing provider and meeting all other requirements Future Appointments Date Type Provider Dept 03/06/21 Appointment Emigdio Veronica MD [facility] 03/19/21 Appointment Emigdio Veronica MD [facility] Showing future appointments within next 150 days with a meds authorizing provider and meeting all other requirements Future appointment: Already Scheduled Xuan Jimenez 02/27/2021 12:48 documented in this encounter Plan of Treatment Upcoming Encounters Date Type Department Care Team (Late st Contact Info) Description 01/04/2025 13:00 EST Office Visit [facility] Ophthalmology - [address] [phone] Gagandeep Rome MD [address] [place] [address], [facility] [address] [place] [phone] 02/11/2025 13:30 EDT Telemedicine [facility] Hematology & Oncology [address] [phone] Dana Padilla MD [address] [place] [address], [facility] [address] [place] [phone] documented as of this encounter Visit Diagnoses Not on filedocumented in this encounter Discontinued Medications Medication Sig Discontinue Reason Start Date End Da te traZODone (DESYREL) 100 mg tablet Take 1 Tab by mouth at bedtime. Reorder 12/26/2020 02/27/2021 documented as of this encounter Additional Health Concerns Infection Onset Date Last Indicated Resolved Time R/O COVID-19 Comment:Covid negative 04/13/2021 04/13/2021 04/13/2021 17:49 EDT R/O COVID-19 06/12/2021 06/12/2021 06/12/2021 23:4 3 EDT R/O COVID-19 07/10/2021 07/14/2021 07/14/2021 23:3 2 EDT R/O COVID-19 10/08/2021 10/08/2021 10/08/2021 18:1 8 EST R/O COVID-19 12/14/2021 12/14/2021 12/19/2021 22:1 5 EST documented as of this encounter Care Teams Manager Estate Relationship Specialty Start Date End Date Emigdio Veronica MD [address] [place] [phone] PCP - General Internal Medicine - Primary Care 05/22/20 02/21/24 Starr Paige MD [address] [place] [phone] Hematology 10/08/21 06/09/22 Dana Padilla MD [address] [place] [address] 2 [place] [phone] Hematology 01/13/22 06/09/22 documented as of this encounter"
--- OUTSIDE RECORDS SUMMARY | 2024-11-22 17:17 | XMS_ITS | Encounter Summary ---
Author Organization [facility] Address [address] [place] [address] Care Team Providers Care Senior Buyer Planner Name Role Phone Emigdio Veronica MD Primary Care Provider + Reason for Visit * Reason Comments Telemedicine Phone Call Dyspnea Encounter Details Date Type Department Care Team (Late st Contact Info) Description 02/11/2021 16:00 EDT Telemedicine [facility] - [place] [facility] [address] [place] [address] Emigdio Veronica MD [address] [place] [phone] Pneumonia of left lower lobe due to infectious organism (Primary Dx); Worsening dysgraphia; Fever, unspecified fever cause Social History Tobacco Use Types Packs/Day Years [...] 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 The patient confirms acute sternal chest pain. The following staff and their role [...] 60 y.o. female with PMHx of COPD, cirrhosis of the liver, pancytopenia, whopresents with a CC: of worsening dyspnea, malaise, fever Today Tara presents for a telemedicine phone visit for ED presentation follow-up She was originally seen in [facility] ED on 02/06 for symptoms of dyspnea and fever and received a CXR that demonstrated a LLL consolidation. She was diagnosed with acute PNA and was started on a regiment of augmentin and doxycycline. Due to concerns for a co-current COPD exacerbation she was also startedon a 60 mg prednisone burst. She was given IV fluids and discharged home. She returned to the ED on02/09/2021 with progressively worsening symptoms despite compliance with her steroids and antibiotics. She was afebrile on presentation though she was reporting fevers of 100.4 F at home. Her other vitals were otherwise unremarkable and her labs at this most recent ED visit reflected a negative COVID-19 test, a sodium of 134, creatinine of 1.49 (baseline 1.0-1.1) , negative troponin, normal lacticacid, unremarkable VBG, but notably a d-dimer of >2000. Her WBC was noted to be normal at 5.8, though the patient has baseline leukopenia with WBC counts in the 3-4 range. She received a CT PE protocol that did not demonstrate acute evidence of thrombosis, but an atypical multifocal pneumonia was noted on the scan. She was provided one dose of IV levofloxacin and discharged to home. Over the last two days she has noted to our triage staff worsening fevers and dyspnea. She now states she is in a bad place, her most recent fever was 100.6 and she states she has been unable to eat or drink due to profound nausea. She also reporting frequent diarrhea and decreasing urinary frequency. She s using her home O2 more frequently due to the dyspnea, though she states that she does not have an O2 monitor at home. She also reports a burning substernal chest pain. We discussed that given the acuity of her complaints the next appropriate step would be ER evaluation to ensure her safety. She expresses a lack of confidence in the care she has received at [facility] and I advised that she present to the [facility] ER for evaluation tonight. ROS as above O: There were no vitals taken for this visit. Recent Labs/Imaging: Reviewed in epic A and P: Diagnoses and all orders for this visit: Pneumonia of left lower lobe due to infectious organism, Worsening dysgraphia, Fever: Diagnosis of pneumonia confirmed on outside imaging. Given patient's reports of worsening symptoms despite multiple OSH ER presentations and use of antibiotics I concern for possible sepsis versus severe COPD exacerbation. -Encouraged the patient to present to [facility] ER for further evaluation tonight F/u: As needed I spent a total of 30 minutes with this patient today over the phone, in chart review and in documentation and 15 minutes of that time was spent on education and counseling for bacterial pneumonia. Some of this note was transcribed with Sokolin dictating software. While it was proofread, it may still contain unnoticed grammatical or word errors due to incorrect transcribing. Emigdio Veronica MD 02/12/2021 9:47 documented in this encounter Plan of Treatment Upcoming Encounters Date Type Department Care Team (Late st Contact Info) Description 01/04/2025 13:00 EST Office Visit [facility] Ophthalmology - [address] [address] Gagandeep Rome MD [address] [facility], Level [address] [place] [phone] 02/11/2025 13:30 EDT Telemedicine [facility] Hematology & Oncology - [address] [phone] Dana Padilla MD [address] [facility] [address] [place] [phone] documented as of this encounter Visit Diagnoses Diagnosis Pneumonia of left lower lobe due to infectious organism- Primary Worsening dysgraphia Fever, unspecified fever cause documented in this encounter Care Teams Senior Buyer Planner Relationship Specialty Start Date End Date Emigdio Veronica MD [address] [place] [phone] PCP - General Internal Medicine - Primary Care 05/22/20 02/21/24 documented as of this encounter
--- OUTSIDE RECORDS SUMMARY | 2024-11-22 17:17 | XMS_ITS | Encounter Summary ---
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 Patient will have lab work drawn this week. The patient indicates understanding of these issues and agrees with the plan. * Telephone Encounter - Emigdio Veronica MD - 02/02/2021 1628 EDT I would have her return to lasix 40 mg daily from 20 mg daily. We should obtain a repeat BMP this week to verify that her creatinine has returned to it's baseline. A BMP order should already be in the system. * Telephone Encounter - Karol Schultz RN - 02/02/2021 1506 EDT Patient recently had a decrease in her swelling, seemed to be doing okay. Recently had a change in dose of her spirolactone and lasix, decreased due to kidney function. She has gained 17 pounds in the last 5 days. Swelling is located in her feet, ankle, and lower leg. Having trouble putting her shoes on. Legs are very itchy. Does have pitting edema. Please advise. Patient very concerned. * Telephone Encounter - Cris Copeland - 02/02/2021 1141 EDT Reason for Call: Leg Swelling Summary/Symptoms: Pt states she had worsening leg swelling over the weekend. Significant weight gain. ?change in meds? Onset and Duration: this weekened Does the patient have a computer, laptop or smart phone with high speed & video capability? N/A If so, would they be interested in doing a video visit via Zoom? N/A Appointment Offered? No Cris Copeland 02/02/2021 11:41 documented in this encounter Plan of Treatment Upcoming Encounters Date Type Department Care Team (Late st Contact Info) Description 01/04/2025 13:00 EST Office Visit [facility] Ophthalmology - [address] [phone] Gagandeep Rome MD [address] [place] [address] [address] [place] [phone] 02/11/2025 13:30 EDT Telemedicine [facility] Hematology & Oncology - [address] [phone] Dana Padilla MD [address] [place] [address], [facility] [address] [place] [phone] documented as of this encounter Visit Diagnoses Not on filedocumented in this encounter Care Teams Clinical Cytogenetics Director Relationship Specialty Start Date End Date Emigdio Veronica MD [address] [place] [phone] PCP - General Internal Medicine - Primary Care 05/22/20 02/21/24 documented as of this encounter
--- OUTSIDE RECORDS SUMMARY | 2024-11-22 17:17 | XMS_ITS | Encounter Summary ---
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 She states that she is feeling very poorly. She was diagnosed with pneumonia approximately one week ago, and placed on antibiotics. She has not noticed any improvement. She continues to have a fever , cough, and just can't keep anything down. She was evaluated in the ER at [facility] yesterday. Suggested that patient keep in close contact with her Primary Care Provider, and reschedule the EGD to a later date. She is in agreement. She is feeling so ill , that she wishes to call our office back to schedule a new date. Will inform Dr. Moseley. documented in this encounter Plan of Treatment Upcoming Encounters Date Type Department Care Team (Late st Contact Info) Description 01/04/2025 13:00 EST Office Visit [facility] Ophthalmology - [address] [phone] Gagandeep Rome MD 111 [facility], [facility] 5 [place] [phone] 02/11/2025 13:30 EDT Telemedicine [facility] Hematology & Oncology - [address] [address] Dana Padilla MD [address] [place] [address], Level 2 [place] [phone] documented as of this encounter Visit Diagnoses Not on filedocumented in this encounter Additional Health Concerns Infection Onset Date Last Indicated Resolved Time R/O COVID-19 Comment:Covid negative 04/13/2021 04/13/2021 04/13/2021 17:49 EDT R/O COVID-19 06/12/2021 06/12/2021 06/12/2021 23:4 3 EDT R/O COVID-19 07/10/2021 07/14/2021 07/14/2021 23:3 2 EDT documented as of this encounter Care Teams [employer] Nut Farming Supervisor Relationship Specialty Start Date End Date Emigdio Veronica MD 2 [place] [phone] PCP - General Internal Medicine - Primary Care 05/22/20 02/21/24 documented as of this encounter
--- OUTSIDE RECORDS SUMMARY | 2024-11-22 17:17 | XMS_ITS | Encounter Summary ---
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 Not on [...] [facility] Ophthalmology - [address] [phone] Gagandeep Rome MD 111 [facility], [facility] 5 [place] [phone] 02/11/2025 13:30 EDT Telemedicine [facility] Hematology & Oncology - [address] [phone] Dana Padilla MD 111 [facility], [facility] 2 [place] [phone] documented as of this encounter Visit Diagnoses Not on filedocumented in this encounter Care Teams Assisted Living Housekeeper Relationship Specialty Start Date End Date Emigdio Veronica MD 2 [place] [phone] PCP - General Internal Medicine - Primary Care 05/22/20 02/21/24 documented as of this encounter
--- OUTSIDE RECORDS SUMMARY | 2024-11-22 17:17 | XMS_ITS | Encounter Summary ---
Author Organization [facility] Address [address] [place] [address] Care Team Providers Care Coating And Embossing Unit Operator Name Role Phone Emigdio Veronica MD Primary Care Provider + Reason for Visit * (Routine) - Receiving Office to Obtain Authorization Specialty Diagnoses / Procedures Referred By Contac t Referred To Contact Procedures CT OUTSIDE IMAGES BODY Unknown, Provider, MD Referral ID Status Reason Start Date Expiration Date Visits Requested Visits Authorized [id number] Receiving Office to Obtain Authorization 02/16/2021 1 1 Encounter Details Date Type Department Care Team (Latest Contact Info) Description 01/14/2021 - 01/14/2021 23:59 EST Hospital Encounter 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 1 furosemide (LASIX) 40 mg tablet TAKE 2 TABLETS BY MOUTH EVERY DAY 180 Tab 3 12/12/2020 1 gabapentin (NEURONTIN) 100 mg capsule Take 1 Cap by mouth 3 times daily. 90 Cap 2 01/06/2021 1 hydrOXYzine (ATARAX) 25 mg tablet TAKE 1 TABLET BY MOUTH AT BEDTIME NEEDED 90 Tab 3 12/15/2020 1 levothyroxine (SYNTHROID) 25 mcg tablet Take 1 Tab by mouth daily. Unknown dose 90 Tab 3 11/03/2020 1 LUSUTROMBOPAG ORALIndications: Tank Maker Wood prescribed -- 7 day course prior to [...] mouth daily. 90 Tab 3 08/01/2020 1 spironolactone (ALDACTONE) 50 mg tablet Take one 50 mg tablet with one 100 mg tablet daily for a total of 150 mg daily. 90 Tab 11/06/2020 1 SYMBICORT 160-4.5 mcg/actuation HFA aerosol inhaler inhalerIndicatio ns:COPD with asthma ([facility]) Inhale 2 Puffs as directed daily. [...] Office Visit [facility] Ophthalmology - [address] [address] Gagandeep Rome MD 111 [facility], Level 5 [place] [phone] 02/11/2025 13:30 EDT Telemedicine [facility] Cancer Center Hematology & Oncology - [facility] [address] [place], [place] [phone] Dana Padilla MD 111 [facility], Level 2 [place] [phone] documented as of this encounter Procedures Procedure Name Priority Date/Time Associated Diagnosis Comments CT OUTSIDE IMAGES BODY Routine 02/16/2021 14:30 EDT documented in this encounter Results * CT OUTSIDE IMAGES BODY (02/16/2021 14:30 EDT) Narrative 02/16/2021 14:30 EDT This is a non-reportable exam. us Provider Unknown IMJames OTHER IMAGING ORDERABLES Final Result documented in this encounter Visit Diagnoses Not on filedocumented in this encounter Care Teams Coating And Embossing Unit Operator Relationship Specialty Start Date End Date Emigdio Veronica MD [address] [place] [phone] PCP - General Internal Medicine - Primary Care 05/22/20 02/21/24 documented as of this encounter
--- OUTSIDE RECORDS SUMMARY | 2024-11-22 17:17 | XMS_ITS | Encounter Summary ---
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 documented in this encounter Plan of Treatment Upcoming Encounters Date Type Department Care Team (Late st Contact Info) Description 01/04/2025 13:00 EST Office Visit [facility] Ophthalmology - [address] [phone] Gagandeep Rome MD [address] [place] [address] 5 [place] [phone] 02/11/2025 13:30 EDT Telemedicine [facility] Hematology & Oncology - [address] [phone] Dana Padilla MD [address] [place] [address], [facility] 2 [place] [phone] documented as of this encounter Visit Diagnoses Not on filedocumented in this encounter Care Teams Coding Manager Relationship Specialty Start Date End Date Emigdio Veronica MD 2 [place] [phone] PCP - General Internal Medicine - Primary Care 05/22/20 02/21/24 documented as of this encounter
--- OUTSIDE RECORDS SUMMARY | 2024-11-22 17:17 | XMS_ITS | Encounter Summary ---
Author Organization 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 She will citrus picker her prescriptiontoday for her trazodone 100mg and break them in half as needed. The patient indicates understanding of these issues and agrees with the plan. * Telephone Encounter - Zeina Curiel PA-C - 02/13/2021 1143 EDT Glad to hear she is feeling better overall. Continue with supportive treatment and measures as discussed yesterday. Yes, she can increase the trazodone to either 125 mg or 150 mg. Please explain to her that she is going to feel very fatigued for several weeks secondary to the pneumonia. * Telephone Encounter - Karol Schultz RN - 02/13/2021 1016 EDT Patient returned call. She is feeling better this morning, SOB has improved. Feels like the steroids and abx are helping. No fever. Still having diarrhea. Nausea is under control with zofran. Having some itching on her back, she has been using topical. Had a piece of toast last night. Feels she is able to stay hydrated. Not urinating frequently, does not feel like she is gaining fluid. She sounds good on the phone, not as SOB. Currently taking 100mg of trazodone at bedtime for sleep. Having difficulty sleeping and very tiredduring the day. Wondering if we can increase the dose or if there is another option. To DOS. * Telephone Encounter - Claudine Santa RN - 02/13/2021 1007 EDT Called pt at 0930 to check in and see how she is feeling today. I could hear her clearly on the phone but she could not hear me. Tried again and this was still the case. Possible problem with triage headset. Tried pt again just now and no answer. Message says that her voicemail has not been set up yet so unable to leave a message. CLAUDINE SANTA RN 02/13/2021 10:09 * Telephone Encounter - Maritza Obrien MD - 02/12/2021 1323 EDT I discussed this pt's case with nursing and agree with the plan as stated * Telephone Encounter - Jes Mayorga RN - 02/12/2021 1126 EDT Reviewed ER Visit coverign provider DR Obrien. Labs are improving. Will encourage conservative treatment. Call to patient patient has been sipping on fluids all morning. Recently vomited. Patient also having diarrhea. Patient taking augmentini , doxycycline and prednisone Patient was short of breath after vomiting. But not as bad now. Patient has zofran at home. Discussed taking zofran an hour before taking morning medications. Continue sipping on fluids. Patient to trial cracker with antibiotics. Discussed brat diet with patient.Encouraged patient to keep track of fluid intake. Try mixing up fluids broth, flat soda, water, watered down juices and jello. Patient not able to take tylenol. Patient will use cool compresses for fever management. Patient has inhalers and nebulizers available for shortness of breath. Patient aware with pneumonia it can take a long time to feel better. If worsening symptoms patient to return to ER. Patient agreed to do this. No fever this morning. Shortness of breath is about the same no worse. Triage to call patient tomorrow to follow up. No barriers. * Telephone Encounter - Jes Mayorga RN - 02/12/2021 0936 EDT Patient went to [facility] ER. Patient states she didn't see a nurse.. Doctor kept telling patient that she was fine and didn't need to be there. Daughter tried to talk to Dr On phone wasn't sucessful. Kept telling patient that it was all in her head. No urine for 4 days. Did not receive IV fluids. Patient was discharged at [place] with taxi voucher. Only kept a few sips of tea down this morning and still not feeling very well. Will review ER Visit with covering provider. * Telephone Encounter - Jes Mayorga RN - 02/12/2021 0905 EDT Call to [facility] for records. * Telephone Encounter - Karol Copeland - 02/12/2021 0837 EDT Pt looking talk with triage again in regards to SOB. Pt states experience at ED was horrible. Pt still unsure what to do. documented in this encounter Plan of Treatment Upcoming Encounters Date Type Department Care Team (Late st Contact Info) Description 01/04/2025 13:00 EST Office Visit [facility] Ophthalmology - Main [address] [address] Gagandeep Rome MD [address] [place] [address], Level 5 [place] [phone] 02/11/2025 13:30 EDT Telemedicine [facility] Cancer Center Hematology & Oncology - [address] [phone] Dana Padilla MD 111 [facility] 2 [place] [phone] documented as of this encounter Visit Diagnoses Not on filedocumented in this encounter Care Teams Undercover Operator Relationship Specialty Start Date End Date Emigdio Veronica MD 2 [place] [phone] PCP - General Internal Medicine - Primary Care 05/22/20 02/21/24 documented as of this encounter
--- OUTSIDE RECORDS SUMMARY | 2024-11-22 17:17 | XMS_ITS | Encounter Summary ---
Author Organization 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 Not [...] Description 01/04/2025 13:00 EST Office Visit [facility] Ophthalmology - [address] [phone] Gagandeep Rome MD [address] [place] [address], [facility] 5 [place] [phone] 02/11/2025 13:30 EDT Telemedicine [facility] Cancer Center Hematology & Oncology - [address] [phone] Dana Padilla MD [address] [place] [address], [facility] 2 [place] [phone] documented as of this encounter Visit Diagnoses Not on filedocumented in this encounter Care Teams Drop Count Associate Relationship Specialty Start Date End Date Emigdio Veronica MD 2 [place] [phone] PCP - General Internal Medicine - Primary Care 05/22/20 02/21/24 documented as of this encounter
--- OUTSIDE RECORDS SUMMARY | 2024-11-22 17:17 | XMS_ITS | Encounter Summary ---
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 UA signed * Telephone Encounter - Jes Mayorga RN - 01/26/2021 1656 EST Started yesterday. [place] strange. Winded easily. Feels like head is in a vise. Like a pressure. Feels sick to stomach and then lays down. Patient has terrible ache in back. Having trouble peeing. Feeling like has to go but able to pass only a few drops. Kidney function is slow coming back. Reduced fluid medication. Noticed swelling this morning. No blood in urine. Doesn't hurt to urinate, just pressure. No fever. Having trouble sleeping for the last year. The last 2 days having trouble staying awake. Patient b/p is 92/60 which is normal for patient. appointment scheduled to evaluate for UTI. Patient feels like she has to urinate but is not always able to . Has pelvic pressure. No blood in urine. No fever. Any other recommendations? * Telephone Encounter - Ele Hannon - 01/26/2021 1303 EST Patient states she felt off yesterday, and worsening today. Feels like she might be disoriented, lightheaded. documented in this encounter Plan of Treatment Upcoming Encounters Date Type Department Care Team (Late st Contact Info) Description 01/04/2025 13:00 EST Office Visit [facility] Ophthalmology - [address] [phone] Gagandeep Rome MD 111 [facility], Level 5 [place] [phone] 02/11/2025 13:30 EDT Telemedicine [facility] Cancer [place] Hematology & Oncology - [address] [address] Dana Padilla MD 111 [facility], Level 2 [place] [address] documented as of this encounter Results * (ABNORMAL) URINE CHEMICAL (DIP) & SEDIMENT (MICRO) WITH REFLEX TO CULTURE (04/08/2021 7:37 EDT) Color UA Yellow Colorless, Yellow 04/08/2021 9:02 [facility] Clarity UA Clear Clear 04/08/2021 9:02 [facility] Glucose UA Negative Negative 04/08/2021 9:02 [facility] Bilirubin UA Negative Negative 04/08/2021 9:02 [facility] Ketones UA Negative Negative 04/08/2021 9:02 [facility] Specific Topping, Urine 1.015 1.001 - 1.035 04/08/2021 9:02 [facility] Blood UA 2+(A) Negative 04/08/2021 9:02 [facility] Urobilinogen UA Normal Normal mg/dL 04/08/2021 9:02 [facility] Nitrite UA Negative Negative 04/08/2021 9:02 [facility] Leukocyte Esterase UA 2+(A) Negative 04/08/2021 9:02 [facility] Protein UA Negative Negative 04/08/2021 9:02 [facility] pH, UA 6.0 4.6 - 8.0 04/08/2021 9:02 [facility] Urine RBC Count, Auto 11 - 50(A) 0 - 2 Cells/HPF 04/08/2021 9:02 [facility] Urine WBC Count, Auto 11 - 50(A) 0 - 3 Cells/HPF 04/08/2021 9:02 [facility] Urine Squamous Count, Auto Few(A) None Seen Cells/HPF 04/08/2021 9:02 [facility] Urine Hyaline Cast Count, Auto <=10 <=10 Casts/LPF 04/08/2021 9:02 [facility] Urine Bacteria Count, Auto None Seen None Seen Bacteria/HP F 04/08/2021 9:02 [facility] UA Small Round Cells Few Transitional Epithelial Cells(A) None Seen per HPF 04/08/2021 9:02 [facility] Additional Findings Trichomonas Present WBC Clumps Present(A) None Seen 04/08/2021 9:02 [facility] Urine URINE SPECIMEN COLLECTION, CLEAN CATCH / Unknown Urine Collect / Unknown 04/08/2021 7:37 EDT 04/08/2021 7:37 EDT Narrative [facility] - 04/08/2021 9:02 EDT A Urine Culture test has been reflexively ordered based on result criteria from the Urine Sediment Analysis. Urine Sediment Analysis results are unreliable on urines that are unrefrigerated for >2 hrs or refrigerated >8 hrs. us Emigdio Veronica MD URINALYSIS ORDERABLES Fi nal Result [facility] [address] [place] [address] documented in this encounter Visit Diagnoses Diagnosis Dysuria- Primary documented in this encounter Care Teams Rn Iv Therapy Relationship Specialty Start Date End Date Emigdio Veronica MD 2 [place] [phone] PCP - General Internal Medicine - Primary Care 05/22/20 02/21/24 documented as of this encounter
--- OUTSIDE RECORDS SUMMARY | 2024-11-22 17:17 | XMS_ITS | Encounter Summary ---
Author Organization [facility] Address [address] [place] [address] Care Team Providers Care Beater Room Supervisor Name Role Phone Emigdio Veronica MD Primary Care Provider + Starr Paige MD Unavailable [phone] Dana Padilla MD Unavailable Encounter Details Date Type Department Care Team (Late st Contact Info) Description 02/20/2021 Telephone 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 Original referral shows marked FUR subsequent treatment w/ Sleep Voice mailbox has not been set up. Could not leave message as voicemail not set up. documented in this encounter Plan of Treatment Upcoming Encounters Date Type Department Care Team (Late st Contact Info) Description 01/04/2025 13:00 EST Office Visit [facility] Ophthalmology - [address] [phone] Gagandeep Rome MD [address] [place] [address] 5 [place] [phone] 02/11/2025 13:30 EDT Telemedicine [facility] Hematology & Oncology - [address] [phone] Dana Padilla MD [address] [place] [address], [facility] 2 [place] [phone] documented as of this encounter Visit Diagnoses [...] documented as of this encounter Care Teams Beater Room Supervisor Relationship Specialty Start Date End Date Emigdio Veronica MD 2 [place] [phone] PCP - General Internal Medicine - Primary Care 05/22/20 02/21/24 Starr Paige MD [address] [place] [phone] Hematology 10/08/21 06/09/22 Dana Padilla MD 111 [facility], Level 2 [place] [phone] Hematology 01/13/22 06/09/22 documented as of this encounter
--- OUTSIDE RECORDS SUMMARY | 2024-11-22 17:17 | XMS_ITS | Encounter Summary ---
Author Organization [facility] Address [address] [place] [address] Care Team Providers Care Mounted Police Officer Name Role Phone Emigdio Veronica MD Primary Care Provider + Reason for Visit * Reason Comments Follow-up BIB * Follow Up (48 Hrs (Urgent)) - Order Cancelled Specialty Diagnoses / Procedures Referred By Serene huitron Referred To Contact Urology Diagnoses Left ureteral stone Jake Lockhart MD Phone: tel: fax: [address] [address] Phone: tel: fax: Referral ID Status Reason Start Date Expiration Date Visits Requested Visits Authorized [id number] Order Cancelled Specialty Services Required 12/17/2020 1 1 Encounter Details Date Type Department Care Team (Late st Contact Info) Description 01/19/2021 16:00 EST Office Visit [address] [address] Lon Ortez MD [address] [facility], [facility] [address] [place] [phone] Left ureteral stone Social History Tobacco Use Types Packs/Day Years [...] 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 Follow-up BIB HPI: Tara is a 60 y.o. female with a history of nephrolithiasis. She recently had stent placement on the left and subsequent ureteroscopy for a ureteral stone, however at the time of ureteroscopy no stone was identified and her stent was removed. She presents for follow up today with a renal ultrasound. She continues to have some left flank pain but this has improved somewhat. She was recently admitted to [facility] for low blood pressures. They changed her water pills around and she is doing better but still feels weak. Somewhat. No fevers or chills. Medications Current Outpatient Medications: ??? albuterol (ACCUNEB) 2.5 mg /3 mL (0.083 %) nebulizer solution, USE 1 VIAL VIA NEBULIZER 4 TIMESA DAY NEEDED, Disp: , Rfl: ??? albuterol 90 mcg/actuation inhaler, Inhale 2 Puffs as directed every 4 hours as needed. , Disp:, Rfl: ??? docusate sodium (COLACE) 100 mg capsule, TAKE 1 CAPSULE BY MOUTH TWICE A DAY, Disp: 60 Cap, Rfl: 11 ??? ERGOCALCIFEROL, VITAMIN D2, (VITAMIN D ORAL), Take by mouth., Disp: , Rfl: ??? ferrous gluconate (FERGON) 324 mg (38 mg iron) tablet, Take 324 mg by mouth daily with breakfast. , Disp: , Rfl: ??? furosemide (LASIX) 40 mg tablet, TAKE 2 TABLETS BY MOUTH EVERY DAY, Disp: 180 Tab, Rfl: 3 ??? gabapentin (NEURONTIN) 100 mg capsule, Take 1 Cap by mouth 3 times daily., Disp: 90 Cap, Rfl: 2 ??? hydrOXYzine (ATARAX) 25 mg tablet, TAKE 1 TABLET BY MOUTH AT BEDTIME NEEDED, Disp: 90 Tab, Rfl: 3 ??? levothyroxine (SYNTHROID) 25 mcg tablet, Take 1 Tab by mouth daily. Unknown dose (Patient taking differently: Take 25 mcg by mouth daily before breakfast. ), Disp: 90 Tab, Rfl: 3 ??? LUSUTROMBOPAG ORAL, Take 3 mg by mouth daily. , Disp: , Rfl: ??? magnesium oxide (MAG-OX) 400 mg (241.3 mg magnesium) tablet, Take 1 Tab by mouth daily., Disp: 200 Tab, Rfl: 3 ??? ondansetron (ZOFRAN) 4 mg tablet, Take 1 Tab by mouth 2 times daily as needed for Nausea., Disp: 60 Tab, Rfl: 3 ??? oxyCODONE (ROXICODONE) 5 mg immediate release tablet, Take 1 Tab by mouth 2 times daily as needed for Pain. Daily Max: 10 mg, Disp: 20 Tab, Rfl: 0 ??? OXYGEN-AIR DELIVERY SYSTEMS MISC, 2 L by misc (non-drug; combo route) route at bedtime. , Disp:, Rfl: ??? phenazopyridine (PYRIDIUM) 200 mg tablet, Take 1 Tab by mouth 3 times daily as needed for Pain., Disp: 10 Tab, Rfl: 0 ??? predniSONE (DELTASONE) 20 mg tablet, TAKE 3 TABLETS BY MOUTH ONCE DAILY FOR 4 DAYS, START TOMORROW (11/18), Disp: , Rfl: ??? SENNA LAXATIVE 8.6 mg tablet, TAKE 1 TABLET BY MOUTH EVERYDAY AT BEDTIME, Disp: 30 Tab, Rfl: 11 ??? sertraline (ZOLOFT) 25 mg tablet, Take 25 mg by mouth daily., Disp: , Rfl: ??? spironolactone (ALDACTONE) 100 mg tablet, Take 1 Tab by mouth daily. (Patient taking differently: Take 150 mg by mouth daily before breakfast. ), Disp: 90 Tab, Rfl: 3 ??? spironolactone (ALDACTONE) 50 mg tablet, Take one 50 mg tablet with one 100 mg tablet daily fora total of 150 mg daily., Disp: 90 Tab, Rfl: 0 ??? SYMBICORT 160-4.5 mcg/actuation HFA aerosol inhaler inhaler, Inhale 2 Puffs as directed daily. (Patient taking differently: Inhale 2 Puffs as directed daily before breakfast. ), Disp: 1 Inhaler, Rfl: 11 ??? TAMSulosin (FLOMAX) 0.4 mg capsule, Take 1 Cap by mouth at bedtime., Disp: 90 Cap, Rfl: 3 ??? traZODone (DESYREL) 100 mg tablet, Take 1 Tab by mouth at bedtime., Disp: 90 Tab, Rfl: 0 No current facility-administered medications for this visit. Facility-Administered Medications Ordered in Other Visits: ??? albuterol (ACCUNEB) 2.5 mg /3 mL (0.083 %) nebulizer solution, , , , Allergies Allergies Allergen Reactions ??? Morphine Anaphylaxis ??? Sulfa (Sulfonamide Antibiotics) Anaphylaxis ??? Tylenol [Acetaminophen] Other (See Comments) Contraindication with medical hx ??? Aspirin Other (See Comments) Contraindication with medical hx ??? Injectafer [Ferric Carboxymaltose] ??? Lyrica [Pregabalin] Anxiety Insomnia ??? Reglan [Metoclopramide Hcl] Rash Objective/Physical Exam: Vital Signs: There were no vitals taken for this visit. Exam: Data Review: Renal ultrasound today demonstrated right kidney measuring 10.2cm in length. No stones, masses or or hydronephrosis. The left kidney measures 10.5cm and has no stones, lesions, or hydronephrosis. Incidentally she is noted to have an enlarged spleen measuring 21.4cm Labs: BMP: Lab Results Component Value Date NA 138 12/29/2020 K 5.0 12/29/2020 CL 102 12/29/2020 CO2 24 12/29/2020 BUN 22 12/29/2020 CREATININE 1.43 (H) 12/29/2020 GLUCOSEFINGE 83 06/20/2017 CALCIUM 9.0 12/29/2020 MG 1.9 12/29/2020 LABALBU 4.1 12/29/2020 Impression: Patient with a history of hematuria and nephrolithiasis now s/p left ureteroscopy and stent removal. Her hematuria workup has been negative. She is doing well and likely her left flank pain is due to splenomegaly rather than renal or source. Plan: Follow up PRN Lon Ortez MD documented in this encounter Plan of Treatment Upcoming Encounters Date Type Department Care Team (Late st Contact Info) Description 01/04/2025 13:00 EST Office Visit [facility] Ophthalmology - [address] [phone] Gagandeep Rome MD [address] [place] [address] 5 [place] [address] 02/11/2025 13:30 EDT Telemedicine [facility] Hematology & Oncology - [address] [phone] Dana Padilla MD [address] [place] [address], [facility] [address] [place] [phone] documented as of this encounter Visit Diagnoses Diagnosis Left ureteral stone documented in this encounter Care Teams Mounted Police Officer Relationship Specialty Start Date End Date Emigdio Veronica MD [address] [place] [phone] PCP - General Internal Medicine - Primary Care 05/22/20 02/21/24 documented as of this encounter
--- OUTSIDE RECORDS SUMMARY | 2024-11-22 17:17 | XMS_ITS | Encounter Summary ---
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 Not [...] Office Visit [facility] Ophthalmology - [address] [phone] Gagandeep Rome MD [address] [place] [address] 5 [place] [phone] 02/11/2025 13:30 EDT Telemedicine [facility] [address] [phone] Dana Padilla MD [address] [place] [address] 2 [place] [address] documented as of this encounter Visit Diagnoses Not on filedocumented in this encounter Discontinued Medications Medication Sig Discontinue Reason Start Date End Da te oxyCODONE (ROXICODONE) 5 mg immediate release tablet Take 1 Tab by mouth 2 times daily as needed for Pain. Daily Max: 10 mg Therapy completed 12/09/2020 02/27/2021 documented as of this encounter Care Teams Blade Changer Relationship Specialty Start Date End Date Emigdio Veronica MD [address] [place] [phone] PCP - General Internal Medicine - Primary Care 05/22/20 02/21/24 documented as of this encounter
--- OUTSIDE RECORDS SUMMARY | 2024-11-22 17:17 | XMS_ITS | Encounter Summary ---
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 CURRENT THERAPY: Active surveillance PRIOR THERAPY: Perioperative lusutrombopag oral: 3 mg [...] encephal opathy is being transferring care from [facility] to [facility] because of relocation. Patient is following Dr. Ijeoma Smith, GI Department in [facility] for long-standing decompensated liver cirrhosis, portal hypertension and hepatic encephalopathy. She was also formerly seen by hematology oncology clinic in [facility], underwent bone marrow biopsy for pancytopenia in [...] by Dr. Dickens although then relocated to [place]. Her most recent CBC showed WBC 1.99 [...] longer seeing Dr. Smith in hepatology in [facility]. TIPS and liver transplant listing are on stand by. Interval history: Visit is conducted by telemedicine secondary to COVID19 pandemic and social distancing. She startedto feel better, she had been on ABX for 10 days. She is slowly recovering. She is now scheduled forCOVID vaccine. No bleeding. Scheduled to have upper endoscopy on March 26 at [facility]. ROS: 10 review of system is completed and is negative, except for the pertinent positives noted above. PAST MEDICAL HISTORY: Past Medical History: Diagnosis Date ??? Anemia ??? Anxiety ??? Asthma 12/10/2020 currently not taking - mild persistent - see dr. Veronica 11/20/2021 ??? Bleeding disorder ([facility]) ??? Bursitis right shoulder ??? C. difficile colitis 07/25/2015 Hospitalized after kidney stone removal ??? Chronic ITP (idiopathic thrombocytopenia) ([facility]) 12/10/2020 - see 11/20/2020 Dr. Veronica H&P, (managed by Starr Paige MD) ??? Chronic kidney disease ??? Cirrhosis of liver ([facility]) ??? Clotting disorder ([facility]) ??? COPD exacerbation ([facility]) 04/26/2020 ??? Depression ??? Does not exercise [...] directed every 4 hours as needed. ??? amoxicillin-clavulanate (AUGMENTIN) 875-125 mg per tablet ??? docusate sodium (COLACE) 100 mg capsule TAKE 1 CAPSULE BY MOUTH TWICE A DAY (Patient not taking: Reported on 03/06/2021) 60 Cap 11 ??? doxycycline (VIBRA-TABS) 100 mg tablet ??? ERGOCALCIFEROL, VITAMIN D2, (VITAMIN D ORAL) Take by mouth. ??? ferrous gluconate (FERGON) 324 mg (38 mg iron) tablet Take 324 mg by mouth daily with breakfast. ??? furosemide (LASIX) 20 mg tablet Take 1 Tab by mouth daily. 30 Tab 1 ??? levothyroxine (SYNTHROID) 25 mcg tablet Take 1 Tab by mouth daily. Unknown dose (Patient takingdifferently: Take 25 mcg by mouth daily before breakfast. ) 90 Tab 3 ??? LUSUTROMBOPAG ORAL Take 3 mg by mouth daily. ??? magnesium oxide (MAG-OX) 400 mg (241.3 mg magnesium) tablet Take 1 Tab by mouth daily. (Patientnot taking: Reported on 03/12/2021) 200 Tab 3 ??? ondansetron (ZOFRAN) 4 mg tablet Take 1 Tab by mouth 2 times daily as needed for Nausea. 60 Tab3 ??? OXYGEN-AIR DELIVERY SYSTEMS MISC 2 L by misc (non-drug; combo route) route at bedtime. ??? phenazopyridine (PYRIDIUM) 200 mg tablet Take 1 Tab by mouth 3 times daily as needed for Pain. (Patient not taking: Reported on 01/27/2021) 10 Tab 0 ??? predniSONE (DELTASONE) 20 mg tablet TAKE 3 TABLETS BY MOUTH ONCE DAILY FOR 4 DAYS, START TOMORROW (11/18) ??? sertraline (ZOLOFT) 50 mg tablet Take 1 Tab by mouth daily. 30 Tab 0 ??? spironolactone (ALDACTONE) 100 mg tablet Take 1 Tab by mouth daily. 90 Tab 3 ??? SYMBICORT 160-4.5 mcg/actuation HFA aerosol inhaler inhaler Inhale 2 Puffs as directed daily. (Patient taking differently: Inhale 2 Puffs as directed daily before breakfast. ) 1 Inhaler 11 ??? traZODone (DESYREL) 100 mg tablet Take 1.5 tablets (150 mg) by mouth at HS as needed. 135 Tab 1 No current facility-administered medications for this visit. Facility-Administered Medications Ordered in Other Visits Medication Dose Route Frequency Provider Last Rate Last Admin ??? albuterol (ACCUNEB) 2.5 mg /3 mL (0.083 %) nebulizer solution SOCIAL HISTORY: Relationships Social connections ??? Talks on phone: Not on file ??? Gets together: Not on file ??? Attends anglican service: Not on file ??? Active member of club or organization: Not on file ??? Attends meetings of clubs or organizations: Not on file ??? Relationship status: Not on file PHYSICAL EXAMINATION: There were no vitals taken for this visit. Visit is conducted by telemedicine, physical exam was not performed. LABS REVIEWED: Results for RISSA YUN Doug ( ) as of 03/13/2021 09:32 Ref. Range 02/11/2021 20:25 WBC Latest Ref Range: 4.00 - 12.40 K/cmm 5.02 RBC Latest Ref Range: 3.86 - 5.04 M/cmm 4.02 Hemoglobin Latest Ref Range: 11.6 - 15.2 gm/dL 11.8 HCT Latest Ref Range: 34.9 - 44.4 % 34.2 (L) MCV Latest Ref Range: 81 - 98 fl 85 MCH Latest Ref Range: 26.7 - 33.3 pg 29.4 MCHC Latest Ref Range: 32.1 - 35.9 gm/dL 34.5 RDW-CV Latest Ref Range: <14.7 % 14.1 RDW-SD Latest Ref Range: <50.4 fl 43.8 PLT Latest Ref Range: 141 - 377 K/cmm 44 (L) MPV Latest Ref Range: 9.5 - 12.7 fl 10.1 Neutrophils Latest Units: % 84.2 Lymphocytes Latest Units: % 7.4 Monocytes Latest Units: % 7.4 Eosinophils Latest Units: % 0.6 Basophils Latest Units: % 0.2 Immature Grans Latest Units: % 0.2 ABS Neutrophils Latest Ref Range: 2.20 - 8.85 K/cmm 4.23 ABS Lymphs Latest Ref Range: 1.09 - 3.30 K/cmm 0.37 (L) ABS Monocytes Latest Ref Range: 0.10 - 0.80 K/cmm 0.37 ABS Eosinophils Latest Ref Range: 0.03 - 0.61 K/cmm 0.03 ABS Basophils Latest Ref Range: 0.01 - 0.11 K/cmm 0.01 Results for RISSA YUN ( ) as of 03/13/2021 09:32 Ref. Range 03/05/2021 00:00 Sodium, External Latest Ref Range: 137 - 145 133 (A) Potassium, External Unknown 4.6 Chloride, External Latest Ref Range: 98 - 107 93 (A) CO2, External Latest Ref Range: 22 - 30 33 (A) BUN, External Latest Ref Range: 7 - 17 19 (A) Creatinine, External Latest Ref Range: 0.52 - 1.04 1.32 (A) Glucose, Serum, External Unknown 74 Calcium, External Unknown 8.9 IMAGING REVIEWED: 03-14-19 Impression: 1. Region of palpable concern corresponds with the most superior aspect of the abdominal wall hernia repair mesh. 2. Cirrhotic liver 3. Distended portal vein, without evidence of thrombosis. 4. Post cholecystectomy. I have personally reviewed the images and the above interpretation and agree with the findings. PATHOLOGY: [facility] on May 01, 2019 she underwent a bone marrow biopsy that showed mature trilineage hematopoiesis with no evidence of bone marrow disease. Bone marrow biopsy 04/09/2013: (Performed at [facility]) ---Diagnosis--- 1. Progressive pancytopenia, chronic Hep C [...] is no evidence of a clonal population. ASSESSMENT AND PLAN: 60 y.o. old white female with past medical history mentioned above is back for a follow up of pancytopenia; - Her pancytopenia is likely associated with underlying decompensated liver cirrhosis as well as severe hepatosplenomegaly and hypersplenism. - Patient was formerly evaluated at [facility] with subsequent bone marrow biopsy that showed no evidenceof clonal population or any maturation defects, her BMBX in April 2019 again confirmed the similar findings - labs reviewed and overall stable. We will continue to follow expectantly, for the future procedures recommend to have perioperative platelet transfusions if necessary to increase her to the safe levels. Poor response to perioperativeTPO in the past. Plan: RTC in 6 months with labs, earlier is symptoms arise. [facility] Hematology and Oncology I am conducting today's visit by telephone due to the COVID-19 pandemic, and by [facility] to minimize patient exposure and provide [...] or mental health care. Patient is at home, and I, their MD, am in my private office alone. Visit is conducted via phone. I spent a total of __15 minutes on the date of this encounter [...] [facility] Ophthalmology - [address] [phone] Gagandeep Rome MD [address] [place] [address], [facility] [address] [place] [phone] 02/11/2025 13:30 EDT Telemedicine [facility] Hematology & Oncology [address] [phone] Dana Padilla MD [address] [place] [address], [facility] 2 [place] [phone] documented as of this encounter Visit Diagnoses Diagnosis Pancytopenia (HCC-CMS)- Primary Other pancytopenia documented in this encounter Care Teams Shipping Receiving Clerk Relationship Specialty Start Date End Date Emigdio Veronica MD [address] [place] [phone] PCP - General Internal Medicine - Primary Care 05/22/20 02/21/24 documented as of this encounter
--- OUTSIDE RECORDS SUMMARY | 2024-11-22 17:18 | XMS_ITS | Encounter Summary ---
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 No / Unsure 12/09/2020 12:24 EST documented as of this encounter Functional Status * Are you deaf or do you have serious difficulty hearing? Answer Date of Assessment Author No 12/03/2020 15:29 Adria Hernandez RN * Are you blind or do you have serious difficulty seeing, even when wearing glasses? Answer Date of Assessment Author No 12/03/2020 15:29 Adria Hernandez RN * Do you have serious difficulty walking or climbing stairs? (5 years old or older) Answer Date of Assessment Author No 12/03/2020 15:29 Adria Hernandez RN * Do you have difficulty dressing or bathing? (5 years old or older) Answer Date of Assessment Author No 12/03/2020 15:29 Adria Hernandez RN * Because of a physical, mental, or emotional condition, do you have difficulty doing errands alone such as visiting a doctor's office or shopping? (15 years old or older) Answer Date of Assessment Author No 12/03/2020 15:29 Adria Hernandez RN documented as of this encounter Mental Status * Because of a physical, mental, or emotional condition, do you have serious difficulty concentrating, remembering, or making decisions? (5 years old or older) Answer Entry Date Author No 12/03/2020 15:29 EST Adria Marroquin RN documented in this encounter Miscellaneous Notes * Telephone Encounter - Maritza Beltran - 12/16/2020 0954 EST LABS ENTERED FROM [facility]. Maritza Devin 12/16/2020 9:54 documented in this encounter Plan of Treatment Upcoming Encounters Date Type Department Care Team (Late st Contact Info) Description 01/04/2025 13:00 EST Office Visit [facility] Ophthalmology - [address] [phone] Gagandeep Rome MD [address] [place] [address], [facility] 5 [place] [address] 02/11/2025 13:30 EDT Telemedicine [facility] Hematology & Oncology - [address] [phone] Dana Padilla MD [address] [place] [address], [facility] 2 [place] [phone] documented as of this encounter Procedures Procedure Name Priority Date/Time Associated Diagnosis Comments COMPLETE BLOOD COUNT AND DIFFERENTIAL Routine 12/15/2020 documented in this encounter Results * (ABNORMAL) COMPLETE BLOOD COUNT AND DIFFERENTIAL (12/15/2020) WBC, External 2.89(A) 4.8 - 10.8 [facility] RBC, External 4.03(A) 4.20 - 5.40 [facility] Hemoglobin, External 11.8(A) 12.0 - 16.0 [facility] HCT, External 36.7(A) 37 - 47 [facility] MCV, External 91.1 [facility] MCH, External 29.3 [facility] MCHC, External 32.2(A) 33 - 37 [facility] PLT, External 49(A) 140 - 440 [facility] RDW-CV, External 14.3 [facility] Neutrophils, External 77.9(A) 40.0 - 72.0 [facility] Lymphocytes, External 9.0(A) 17 - 45 [facility] Monocytes, External 11.8(A) 3 - 11 [facility] Eosinophils, External 0.3 [facility] Basophils, External 0.3 [facility] ABS Neutrophils, External 2.25 [facility] ABS Lymphs, External 0.26(A) 1.2 - 3.4 [facility] ABS Monocytes, External 0.34 [facility] ABS Eosinophils, External 0.01 [facility] ABS Basophils, External 0.01 [facility] Blood VENOUS BLOOD / Unknown 12/15/2020 us Historical Provider PACKAGES & DNA PROBE DEMI CARDENAS Final Result [facility] documented in this encounter Visit Diagnoses Not on filedocumented in this encounter Care Teams Manager Maintenance Relationship Specialty Start Date End Date Emigdio Veronica MD [address] [place] [phone] PCP - General Internal Medicine - Primary Care 05/22/20 02/21/24 documented as of this encounter
--- OUTSIDE RECORDS SUMMARY | 2024-11-22 17:18 | XMS_ITS | Encounter Summary ---
Author Organization [facility] Address [address] [place] [address] Care Team Providers Care Account Planner Name Role Phone Emigdio Veronica MD Primary Care Provider + Encounter Details Date Type Department Care Team (Late st Contact Info) Description 12/30/2020 Orders Only [facility] Gastroenterology - 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 PAIGE GILMAN RN 01/04/2021 15:11 documented in this encounter Plan of Treatment Upcoming Encounters Date Type Department Care Team (Late st Contact Info) Description 01/04/2025 13:00 EST Office Visit [facility] Ophthalmology - [address] [phone] Gagandeep Rome MD [address] [place] [address] 5 [place] [phone] 02/11/2025 13:30 EDT Telemedicine [facility] Hematology & Oncology - [address] [phone] Dana Padilla MD [address] [place] [address] 2 [place] [phone] documented as of this encounter Visit Diagnoses Diagnosis Encounter for preprocedure screening laboratory testing for COVID-19- Primary documented in this encounter Care Teams Account Planner Relationship Specialty Start Date End Date Emigdio Veronica MD 2 [place] [phone] PCP - General Internal Medicine - Primary Care 05/22/20 02/21/24 documented as of this encounter
--- OUTSIDE RECORDS SUMMARY | 2024-11-22 17:18 | XMS_ITS | Encounter Summary ---
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 documented in this encounter Plan of Treatment Upcoming Encounters Date Type Department Care Team (Late st Contact Info) Description 01/04/2025 13:00 EST Office Visit [facility] Ophthalmology - [address] [phone] Gagandeep Rome MD [address] [place] [address] 5 [place] [phone] 02/11/2025 13:30 EDT Telemedicine [facility] Hematology & Oncology - [address] [phone] Dana Padilla MD [address] [place] [address] 2 [place] [phone] documented as of this encounter Visit Diagnoses Not on filedocumented in this encounter Care Teams Financial Reserve Clerk Relationship Specialty Start Date End Date Emigdio Veronica MD 2 [place] [phone] PCP - General Internal Medicine - Primary Care 05/22/20 02/21/24 documented as of this encounter
--- OUTSIDE RECORDS SUMMARY | 2024-11-22 17:18 | XMS_ITS | Encounter Summary ---
Author Organization [facility] Address [address] [place] [address] Care Team Providers Care Health Economist Name Role Phone Emigdio Veronica MD Primary Care Provider + Reason for Referral * Laboratory Services (Routine) - New Request Specialty Diagnoses / Procedures Referred By [facility] Referred To Contact Diagnoses MUSA (acute kidney injury) ([facility]) Procedures BASIC METABOLIC PANEL (BMP) Emigdio Veronica MD Phone: tel: fax: Referral ID Status Reason Start Date Expiration Date V isits Requested Visits Authorized [id number] New Request 12/26/2020 1 1 * Laboratory Services (Routine) - New Request Specialty Diagnoses / Procedures Referred By [facility] Referred To Contact Diagnoses Sleep related leg cramps Procedures MAGNESIUM Emigdio Veronica MD Phone: tel: fax: Referral ID Status Reason Start Date Expiration Date V isits Requested Visits Authorized [id number] New Request 12/26/2020 1 1 Reason for Visit * Reason Comments Telemedicine Phone Call Post-hospitaliza tion Encounter Details Date Type Department Care Team ([facility] Contact Info) Description 12/26/2020 13:15 EST Telemedicine [facility] - [place] [address] [place] [address] Emigdio Veronica MD [address] [place] [phone] MUSA (acute kidney injury) ([facility]) (Primary Dx); Nephrolithiasis; Sleep related leg cramps; Insomnia, unspecified type Social History Tobacco Use Types [...] 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 No / Unsure 12/17/2020 8:34 EST documented as of this encounter Functional [...] by mouth at bedtime. 90 Tab 12/26/2020 02/27/2021 documented in this encounter Progress Notes * Emigdio Veronica MD - 12/26/2020 1315 EST TELEMEDICINE PHONE VISIT The concept of [...] or mental health care. The patient confirms ongoing pain in her lower extremities The following staff and their role did [...] (38 mg iron) tablet ??? furosemide (LASIX) 40 mg tablet ??? hydrOXYzine (ATARAX) 25 mg [...] ??? spironolactone (ALDACTONE) 100 mg tablet ??? spironolactone (ALDACTONE) 50 mg tablet ??? SYMBICORT 160-4.5 mcg/actuation HFA aerosol inhaler inhaler ??? TAMSulosin (FLOMAX) 0.4 mg capsule ??? traZODone (DESYREL) 100 mg tablet No current facility-administered medications for this visit. Facility-Administered Medications Ordered in Other Visits Medication Route Frequency ??? albuterol (ACCUNEB) 2.5 mg /3 mL (0.083 %) nebulizer solution S: Phyliss E Yun is a 60 y.o. female with PMHx of QUIROZ, hypothyroidism, hypersplenism syndrome and HUEY who presents with a CC: of post hospitalization follow-up. Today Gena presents for a telemedicine phone visit to follow-up on her recent hospitalization for nephrolithiasis. She received a repeat cystoscopy, left ureteroscopy, ureter stent removal and attempted laser lithotripsy on 12/17/2020. Her procedure was uncomplicated but no stones were found during the ureteroscopy. She was admitted for observation and discharged home on 12/18 after tolerating her diet and exhibiting good pain control on oral analgesics. She reports that since returning home her left-sided flank pain has improved and she denies any urinary issues. She does report however ongoing issues with her sleep. She has a known history of HUEY and uses CPAP for management. She was recently seen by sleep medicine and completed a sleep study that confirmed the ongoing presence of mild HUEY. She states she has not heard back from sleep medicine regarding any recommendations for changes to her HUEY management. She reports that she is great difficulty falling asleep due to intermittent leg cramps. She denies any restless leg symptoms. She denies spiking anxiety at night. She is interested however in increasing her trazodone was previously prescribed at 50 mg nightly to 100 mg. We discussed her recent lab work from [facility] following her hospitalization which demonstrates an acute kidney injury with her most recent creatinine measured above 2.0 and her GFR now below 30. Her BMP at [place] was also notable for mild hyperkalemia with a potassium in the mid5 range. Her magnesium was 1.8. We discussed that her repeated urologic procedures combined with likely an over aggressive regimen of spironolactone could account for this kidney injury. She is willing to reduce her spironolactone dosage though she is a little disappointed noting that her current regimen of spironolactone 150 mg daily and Lasix 80 mg daily has done a good job of controlling her lower extremity edema. ROS as above O: There were no vitals taken for this visit. Recent Labs/Imaging: reviewed in Epic A and P: Diagnoses and all orders for this visit: MUSA (acute kidney injury) ([facility]): Likely related to combination of recent urological procedures and aggressive diuretics for her lower extremity edema. - BASIC METABOLIC PANEL (BMP); Future in 1-2 weeks - Will reduce spirolactone from 150 mg to 100 mg daily Nephrolithiasis: Latest development of a 4mm left ureter stone now resolved per urologic studies and follow-up imaging. Left flank pain now resolved - Encouraged follow-up with urology as scheduled Sleep related leg cramps: Unclear etiology, magensium remains below 2.0 and could be playing a role - Increase magnesium oxide to 800 mg dailu - MAGNESIUM; Future with BMP in 1-2 weeks Insomnia, unspecified type: Likely multifactorial - traZODone (DESYREL) 100 mg tablet; Take 1 Tab by mouth at bedtime. - Follow-up with sleep center on HUEY management recommendations F/u: As scheduled I spent a total of 25 minutes over the phone with this patient today and 20 minutes of that time was spent on education and counseling for MUSA, nephrolithiasis, insomnia, leg cramps. Emigdoi Veronica MD 12/28/2020 12:12 documented in this encounter Plan of Treatment Upcoming Encounters Date Type Department Care Team (Late st Contact Info) Description 01/04/2025 13:00 EST Office Visit [facility] Ophthalmology - [address] [address] Gagandeep Rome MD [address] [place] [address], [facility] 5 [place] [phone] 02/11/2025 13:30 EDT Telemedicine [facility] Hematology & Oncology - [address] [phone] Dana Padilla MD [address] [place] [address], [facility] 2 [place] [address] documented as of this encounter Results * MAGNESIUM (12/29/2020 11:46 EST) Magnesium 1.9 1.7 - 2.8 mg/dL 12/29/2020 12:28 EST [facility] Blood VENOUS BLOOD / Unknown Venipuncture / Unknown 12/29/2020 11:46 EST 12/29/2020 11:50 EST us Emigdio Veronica MD CHEMISTRY & BLOOD GAS OR DERABLES Final Result [facility] [address] [place] [address] documented in this encounter Visit Diagnoses Diagnosis MUSA (acute kidney injury) ([facility])- Primary Acute kidney failure, unspecified Nephrolithiasis Calculus of kidney Sleep related leg cramps Insomnia, unspecified type documented in this encounter Orders Lab Orders Without Results Count Last Ordered D ate First Ordered Date BASIC METABOLIC PANEL (BMP) 1 12/26/2020 documented in this encounter Care Teams Health Economist Relationship Specialty Start Date End Date Emigdio Veronica MD 2 [place] [phone] PCP - General Internal Medicine - Primary Care 05/22/20 02/21/24 documented as of this encounter
--- OUTSIDE RECORDS SUMMARY | 2024-11-22 17:18 | XMS_ITS | Encounter Summary ---
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 [...] Visit [facility] Ophthalmology - [address] [phone] Gagandeep Rome MD 111 [facility] 5 [place] [phone] 02/11/2025 13:30 EDT Telemedicine [facility] Hematology & Oncology - [address] [phone] Dana Padilla MD 111 [facility], [facility] 2 [place] [phone] documented as of this encounter Visit Diagnoses Not on filedocumented in this encounter Care Teams Enterprise Application Analyst Relationship Specialty Start Date End Date Emigdio Veronica MD 2 [place] [phone] PCP - General Internal Medicine - Primary Care 05/22/20 02/21/24 documented as of this encounter
--- OUTSIDE RECORDS SUMMARY | 2024-11-22 17:18 | XMS_ITS | Encounter Summary ---
Author Organization [facility] Address [address] [place] [address] Care Team Providers Care Presto Log Operator Name Role Phone Emigdio Veronica MD Primary Care Provider + Reason for Visit * Laboratory Services (Routine) - New Request Specialty Diagnoses / Procedures [facility] Referred To Contact Diagnoses Sleep related leg cramps Procedures MAGNESIUM Emigdio Veronica MD Phone: tel: fax: Referral ID Status Reason Start Date Expiration Date V isits Requested Visits Authorized [id number] New Request 12/26/2020 1 1 Encounter Details Date Type Department Care Team (Late st Contact Info) Description 12/29/2020 11:45 EST Phlebotomy Only [facility] 2 Phlebotomy [address] [place], [place] [phone] Ice Platform Supervisor, Acc Phlebotomy Thrombocytopenia ([facility]); MUSA (acute kidney injury) ([facility]); Sleep related leg cramps; Cirrhosis, nonalcoholic (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 Not [...] Visit [facility] Ophthalmology - [address] [phone] Gagandeep Rome MD [address] [place] [address] 5 [place] [address] 02/11/2025 13:30 EDT Telemedicine [facility] Hematology & Oncology [address] [address] Dana Padilla MD [address] [place] [address], [facility] 2 [place] [address] documented as of this encounter Procedures Procedure Name Priority Date/Time Associated Diagnosis Comments PROTIME Routine 12/29/2020 11:46 EST Cirrhosis, nonalcoholic (HCC-CMS) COMPLETE BLOOD COUNT AND DIFFERENTIAL STAT 12/29/2020 11:46 EST Thrombocytopenia (HCC-CMS) MAGNESIUM Routine 12/29/2020 11:46 EST Sleep related leg cramps COMPREHENSIVE METABOLIC PANEL (CMP) Routine 12/29/2020 11:46 EST Cirrhosis, nonalcoholic (HCC-CMS) documented in this encounter Results * (ABNORMAL) PROTIME (12/29/2020 11:46 EST) I.N.R. 1.3(H) 0.9 - 1.1 Ratio 12/29/2020 12:18 [facility] Pro Time 14.9(H) 10.3 - 13.4 secs 12/29/2020 12:18 [facility] Blood VENOUS BLOOD / Unknown Venipuncture / Unknown 12/29/2020 11:46 EST 12/29/2020 11:50 EST Narrative [facility] - 12/29/2020 12:18 EST Moderate Intensity Coumadin INR = 2.0-3.0 Adjustments in anticoagulant therapy dose should be based on the INR and NOT on the Protime. Micheal Moseley MD PhD HEMATOLOGY & PF4 ORDERA BLES Final Result Performing Organization Address City/State/[facility] Co de Phone Number [facility] [address] [place] [phone] * (ABNORMAL) COMPREHENSIVE METABOLIC PANEL (CMP) (12/29/2020 11:46 EST) Sodium 138 136 - 145 mEq/L 12/29/2020 12:28 [facility] Potassium 5.0 3.5 - 5.0 mEq/L 12/29/2020 12:28 [facility] Chloride 102 96 - 110 mEq/L 12/29/2020 12:28 [facility] CO2 Total 24 22 - 32 mEq/L 12/29/2020 12:28 [facility] Glucose 88 70 - 100 mg/dL 12/29/2020 12:28 [facility] BUN 22 10 - 26 mg/dL 12/29/2020 12:28 [facility] Creatinine 1.43(H) 0.52 - 1.04 mg/dL 12/29/2020 12:28 [facility] eGFR 40(L) >60 mL/min/1.7 3m2 12/29/2020 12:28 [facility] Comment:eGFR calculated lobito coppola CKD-EPI equation for non- Americans. Multiply eGFR by 1.16 for patients. Total Protein 7.0 6.3 - 8.2 g/dL 12/29/2020 12:28 [facility] Albumin 4.1 3.4 - 4.9 g/dL 12/29/2020 12:28 [facility] Alkaline Phosphatase 75 38 - 126 U/L 12/29/2020 12:28 [facility] AST 24 15 - 46 U/L 12/29/2020 12:28 [facility] ALT 19 <35 U/L 12/29/2020 12:28 [facility] Bilirubin, Total 1.0 <1.4 mg/dL 12/29/19 12:28 [facility] Calcium 9.0 8.5 - 10.5 mg/dL 12/29/2020 12:28 [facility] Calculated Calcium 8.9 8.5 - 10.5 mg/dL 12/29/2020 12:28 [facility] Blood VENOUS BLOOD / Unknown Venipuncture / Unknown 12/29/2020 11:46 EST 12/29/2020 11:50 EST Micheal Moseley MD PhD CHEMISTRY & BLOOD GAS O RDERABLES Final Result Performing Organization Address City/[facility]/ZIP Co de Phone Number [facility] [address] [place] [address] * MAGNESIUM (12/29/2020 11:46 EST) Magnesium 1.9 1.7 - 2.8 mg/dL 12/29/2020 12:28 [facility] Blood VENOUS BLOOD / Unknown Venipuncture / Unknown 12/29/2020 11:46 EST 12/29/2020 11:50 EST Emigdio Veronica MD CHEMISTRY & BLOOD GAS OR DERABLES Final Result Performing Organization Address City/[facility]/ZIP Co de Phone Number [facility] [address] [place] [address] * (ABNORMAL) COMPLETE BLOOD COUNT AND DIFFERENTIAL (12/29/2020 11:46 [facility]) WBC 3.45(L) 4.00 - 12.40 K/cmm 12/29/2020 11:56 [facility] RBC 4.14 3.86 - 5.04 M/cmm 12/29/2020 11:56 [facility] Hemoglobin 12.1 11.6 - 15.2 gm/dL 12/29/2020 11:56 [facility] HCT 36.2 34.9 - 44.4 % 12/29/2020 11:56 [facility] MCV 87 81 - 98 fl 12/29/2020 11:56 [facility] MCH 29.2 26.7 - 33.3 pg 12/29/2020 11:56 [facility] MCHC 33.4 32.1 - 35.9 gm/dL 12/29/2020 11:56 [facility] RDW-CV 15.2(H) <14.7 % 12/29/2020 11:56 [facility] RDW-SD 48.6 <50.4 fl 12/29/2020 11:56 [facility] PLT 41(L) 141 - 377 K/cmm 12/29/2020 11:56 [facility] MPV 9.5 9.5 - 12.7 fl 12/29/2020 11:56 [facility] % Neutrophils 85.2 % 12/29/2020 11:56 [facility] % Lymphocytes 7.5 % 12/29/2020 11:56 [facility] % Monocytes 6.1 % 12/29/2020 11:56 [facility] % Eosinophils 0.6 % 12/29/2020 11:56 [facility] % Basophils 0.3 % 12/29/2020 11:56 [facility] % Immature Grans 0.3 % 12/29/19 11:56 [facility] Absolute Neutrophils 2.94 2.20 - 8.85 K/cmm 12/29/2020 11:56 [facility] Absolute Lymphocytes 0.26(L) 1.09 - 3.30 K/cmm 12/29/2020 11:56 [facility] Absolute Monocytes 0.21 0.10 - 0.80 K/cmm 12/29/2020 11:56 [facility] Absolute Eosinophils 0.02(L) 0.03 - 0.61 K/cmm 12/29/2020 11:56 [facility] ABS Basophils 0.01 0.01 - 0.11 K/cmm 12/29/2020 11:56 [facility] Absolute Immature Grans 0.01 0.00 - 0.06 K/cmm 12/29/2020 11:56 [facility] Type of Differential: Auto 12/29/2020 11:56 [facility] Blood VENOUS BLOOD / Unknown Venipuncture / Unknown 12/29/2020 11:46 EST 12/29/2020 11:50 EST us Starr Paige MD PACKAGES & DNA PROBE ORDERA BLES Final Result [facility] [address] [place] [address] documented in this encounter Visit Diagnoses Diagnosis Thrombocytopenia (HCC-CMS) Thrombocytopenia, unspecified MUSA (acute kidney injury) (HCC-CMS) Acute kidney failure, unspecified Sleep related leg cramps Cirrhosis, 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
--- OUTSIDE RECORDS SUMMARY | 2024-11-22 17:18 | XMS_ITS | Encounter Summary ---
Author Organization [facility] Address [address] [place] [address] Care Team Providers Care Lotus Notes Administrator Name Role Phone Emigdio Veronica MD Primary Care Provider + Reason for Visit * Reason Onset Date Comments Discuss Surgery 12/15/2020 Encounter Details Date Type Department Care Team (Late st Contact Info) Description 12/15/2020 Telephone [facility] Urology - [address] [phone] Hardik Vargas, DO 111 [facility], [facility] 5 [place] [address] Discuss Surgery Social History Tobacco Use Types Packs/Day Years [...] 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 (5 years old or older) Answer Entry Date Author No 12/03/2020 15:29 EST Adria Marroquin RN documented in this encounter Miscellaneous Notes * Telephone Encounter - Cris Lopez - 12/15/2020 1106 EST Spoke with the patient. The patient was instructed to check in at 10:00 for a procedure at 12:00 on 12/17/20. You will need a milk wagon driver. Prep for Surgery: 1) Have no solid food or liquids containing fats, including milk, after midnight before your procedure 2) On the day of your procedure, you should have only water or other clear liquids until 3 hours before the scheduled time of your procedure. Patient will contact hematology for a plan for her platelets. documented in this encounter Plan of Treatment Upcoming Encounters Date Type Department Care Team (Late st Contact Info) Description 01/04/2025 13:00 EST Office Visit [facility] Ophthalmology - [address] [address] Gagandeep Rome MD [address] [place] [address], [facility] 5 [place] [phone] 02/11/2025 13:30 EDT Telemedicine [facility] Hematology & Oncology [address] [phone] Dana Padilla MD [address] [place] [address], [facility] 2 [place] [address] documented as of this encounter Visit Diagnoses Not on filedocumented in this encounter Care Teams Lotus Notes Administrator Relationship Specialty Start Date End Date Emigdio Veronica MD [address] [place] [phone] PCP - General Internal Medicine - Primary Care 05/22/20 02/21/24 documented as of this encounter
--- OUTSIDE RECORDS SUMMARY | 2024-11-22 17:18 | XMS_ITS | Encounter Summary ---
Author Organization [facility] Address [address] [place] [address] Care Team Providers Care Solar Manufacturer'S Representative Name Role Phone Emigdio Veronica MD Primary Care Provider + Reason for Visit * Reason Onset Date Comments Patient Outreach 12/15/2020 surgery 12/17, A SAP please Encounter Details Date Type Department Care Team (Late st Contact Info) Description 12/15/2020 Telephone [facility] Hematology & Oncology - [facility] [address] [place], [place] [phone] Starr Paige MD [address] [place] [address] Patient Outreach (surgery 12/17, SHON please) Social History Tobacco Use Types Packs/Day Years [...] 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 Lab order electronically faxed there. Advised her surgeon's office should be able to let her know if PLTs are needed day of surgery. She verbalized understanding and had no further questions at this time. Per message from Dr. Ortez Her initial surgery was not cancelled but we were not able to get the stone out round one which iswhy she has an additional procedure on the . Yes Dr. Vargas will be her surgeon for the . A platelet check a day or 2 prior would be useful. Very unlikely we will cancel her unless platelet count extremely low. Risk of bleeding with this procedure is low. Thanks, Pan * Telephone Encounter - Vanesa Rutledge - 12/15/2020 1138 EST patient states was told no record of transfusion for prior to surgery, absolutely needed; please call as soon as possible documented in this encounter Plan of Treatment Upcoming Encounters Date Type Department Care Team (Late st Contact Info) Description 01/04/2025 13:00 EST Office Visit [facility] Ophthalmology - [address] [address] Gagandeep Rome MD [address] [place] [address], [address] [place] [phone] 02/11/2025 13:30 EDT Telemedicine [facility] Cancer Center Hematology & Oncology - [facility] [address] [place] [address] Dana Padilla MD [address] [facility], [address] [place] [phone] documented as of this encounter Visit Diagnoses Diagnosis Thrombocytopenia ([facility])- Primary Thrombocytopenia, unspecified documented in this encounter Orders Lab Orders Without Results Count Last Ordered D ate First Ordered Date COMPLETE BLOOD COUNT AND DIFFERENTIAL 1 documented in this encounter Care Teams Solar Manufacturer'S Representative Relationship Specialty Start Date End Date Emigdio Veronica MD [address] [place] [address] PCP - General Internal Medicine - Primary Care 05/22/20 02/21/24 documented as of this encounter
--- OUTSIDE RECORDS SUMMARY | 2024-11-22 17:18 | XMS_ITS | Encounter Summary ---
Author Organization [facility] Address [address] [place] [address] Care Team Providers Care Entry Level Manager Name Role Phone Emigdio Veronica MD Primary Care Provider + Reason for Visit * Reason Onset Date Comments Pain 12/19/2020 lower back , lef t side abdominals Encounter Details Date Type Department Care Team (Late st Contact Info) Description 12/19/2020 Telephone [facility] Urology - [address] [phone] Hardik Vargas, DO 111 [facility], [address] [place] [address] Pain (lower back , left side abdominals ) Social History Tobacco Use Types Packs/Day [...] 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 Thx * Telephone Encounter - Joseline Arcos RN - 12/19/2020 1313 EST TC to pt. Pt is having lower back and pain that wraps around the front on the left side. Pt describes it as aching. Pt is having nausea and is taking zofran. Pt denies fever. Pt has been taking no medication. Pt can not take tylenol or ibuprofen due to hematology issue. Pt is out of oxycodone and was not given any medication yesterday when she was discharged. Pt was taking oxycodone 5mg 2 times daily. Pt was just asking for 5-6 tablets to get her through the weekend. Pt uses [facility] pharmacy in [place], [place]. Explained that Dr. Vargas is out of the office and nursing will discuss with anotherphysician. TC to pt. Dr. Vargas said no more pain medications. Pt will need to discuss with her PCP for additional pain medications. * Telephone Encounter - Bobby Enamorado - 12/19/2020 1129 EST Reason for Call: Pain (lower back , left side abdominals ) Summary/Symptoms: Patient states that her pain level is at a 8 since her procedure and is looking for pain medication Please call back and send script to [facility]/pharmacy #[id number] - [place], [place] - [address] [phone] Bobby Enamorado 12/19/2020 11:29 documented in this encounter Plan of Treatment Upcoming Encounters Date Type Department Care Team (Late st Contact Info) Description 01/04/2025 13:00 EST Office Visit [facility] Ophthalmology - [address] [phone] Gagandeep Rome MD [address] [place] [address], [facility] 5 [place] [phone] 02/11/2025 13:30 EDT Telemedicine [facility] Hematology & Oncology [address] [phone] Dana Padilla MD [address] [place] [address], [facility] 2 [place] [phone] documented as of this encounter Visit Diagnoses Not on filedocumented in this encounter Care Teams Entry Level Manager Relationship Specialty Start Date End Date Emigdio Veronica MD 2 [place] [phone] PCP - General Internal Medicine - Primary Care 05/22/20 02/21/24 documented as of this encounter
--- OUTSIDE RECORDS SUMMARY | 2024-11-22 17:18 | XMS_ITS | Encounter Summary ---
Author Organization 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 Not [...] Info) Description 01/04/2025 13:00 EST Office Visit [facility] Ophthalmology - [address] [phone] Gagandeep Rome MD 111 [facility], [facility] 5 [place] [phone] 02/11/2025 13:30 EDT Telemedicine [facility] Hematology & Oncology - [address] [phone] Dana Padilla MD 111 [facility], [facility] 2 [place] [phone] documented as of this encounter Visit Diagnoses Not on filedocumented in this encounter Care Teams Uke Operator Relationship Specialty Start Date End Date Emigdio Veronica MD [address] [place] [phone] PCP - General Internal Medicine - Primary Care 05/22/20 02/21/24 documented as of this encounter
--- OUTSIDE RECORDS SUMMARY | 2024-11-22 17:18 | XMS_ITS | Encounter Summary ---
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 90 Cap 2 01/06/2021 03/06/2021 documented in this encounter Miscellaneous Notes * Telephone Encounter - Emigdio Veronica MD - 01/06/2021 1015 EST Will trial gabapentin 100 mg TID for leg pain. * Telephone Encounter - Karol Copeland - 01/06/2021 0931 EST Faxed BMP order to [facility]. * Telephone Encounter - Karol Hoff RN - 01/06/2021 0911 EST Updated patient about the recommendations from Dr Veronica below. The patient indicates understanding of these issues and agrees with the plan. No barriers. Patient would like to try the gabapentin, see pended for her preferred pharmacy. She did mention when she stays well hydrated the cramps are not as severe. Sometimes she states thecramps move her ankle, into some ungodly position and then it gets stuck there for a while. MHSS: Please fax BMP to [facility] so she can get done there next week. * Telephone Encounter - Emigdio Veronica MD - 01/05/2021 1522 EST The nature of her cramps is unclear. We are greatly limited in what we can offer related to her liver issues, thrombocytopenia and recent MUSA. I would advise trying either diclofenac gel or low dose gabapentin. Both medications she has tried before and discontinued to tolerance issues. I would advise low doses of either to start. Unfortunately I suspect her cramping in her lower legs is less likely secondary to an acute physiologic process and more likely related to her chronic pain syndrome. * Telephone Encounter - Jes Mayorga RN - 01/05/2021 1451 EST Patient having cramps in both legs. Symptoms are getting worse. Legs will get weak and then will fall. Toes and ankle will Magnesium was increased. Patient is taking potassium Tried cream to rub on legs. It was bad in the hospital. Can't take tylenol, cant take ibuprofen. Platelets are down to 40 No fever. Started drinking more water, but that hasnt helped. Mostly at night time. The whole night legs cramp and are painful. Tried bengay, tried lidocaine patches. Hands started with this yesterday. Fingers would lock in place. Tried heating pad and that doesn't help. Feet were slightly swollen this morning. Recommendations? Next step. * Telephone Encounter - Karol Copeland - 01/05/2021 1107 EST Reason for Call: Leg Pain (cramps) Summary/Symptoms: Pt calling again in regards to leg cramps. Pt states the pain is in her feet, ankles, legs, and sometimes it goes up the side of her legs to her hips. Pt states she's tried a lot of things to help, but doesn't feel like anything is helping. Pt states the pain is keeping her up at night. Onset and Duration? ongoing Appointment Offered? No Karol Copeland 01/05/2021 11:07 documented in this encounter Plan of Treatment Upcoming Encounters Date Type Department Care Team (Late st Contact Info) Description 01/04/2025 13:00 EST Office Visit [facility] Ophthalmology - [address] [phone] Gagandeep Rome MD 111 [facility], [facility] 5 [place] [phone] 02/11/2025 13:[address] [facility] Cancer Center Hematology & Oncology - [address] [phone] Dana Padilla MD 111 [facility], Level 2 [place] [phone] documented as of this encounter Visit Diagnoses Not on filedocumented in this encounter Care Teams Heel Coverer Relationship Specialty Start Date End Date Emigdio Veronica MD [address] [place] [phone] PCP - General Internal Medicine - Primary Care 05/22/20 02/21/24 documented as of this encounter
--- OUTSIDE RECORDS SUMMARY | 2024-11-22 17:18 | XMS_ITS | Encounter Summary ---
Author Organization [facility] Address [address] [place] [address] Care Team Providers Care Gaggerman Name Role Phone Emigdio Veronica MD Primary Care Provider + Reason for Referral * Referral (Routine) - Closed Specialty Diagnoses / Procedures Referred By Contact Referred To Contact Gastroenterology and Hepatology Diagnoses Cirrhosis, nonalcoholic (HCC-CMS) Generalized abdominal pain Procedures UPPER ENDOSCOPY (EGD) Micheal Moseley MD PhD Phone: tel:[phone] fax:[phone] [address] Phone: tel: fax: Referral ID Status Reason Start Date Expiration Date Visits Re quested Visits Authorized [id number] Closed 12/29/2020 1 1 Reason for Visit * Reason Comments New Patient Visit cirrhosis of liver w ithout ascites unspecified hepatic cirrhosis Encounter Details Date Type Department Care Team (Late st Contact Info) Description 12/29/2020 10:00 EST Office Visit [address] [address] Micheal Moseley MD PhD 111 [facility], Level [address] [place] [address] Cirrhosis, nonalcoholic (HCC-CMS) (Primary Dx); Generalized abdominal pain Social History Tobacco Use Types Packs/Day [...] Industry 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 No / Unsure 12/29/2020 11:33 EST documented as of this encounter Last Filed Vital Signs Vital Sign Reading Time Taken Comments Blood Pressure 100/70 12/29/2020 1016 EST Pulse 74 12/29/2020 1016 EST Temperature - - Respiratory Rate - - Oxygen Saturation - - Inhaled Oxygen Concentration - - Weight 95.5 kg (210 lb 9.6 oz) 12/29/[address] Height 162.6 cm (5' 4.02) 12/29/2020 1016 EST Body Mass Index 36.13 12/29/2020 1016 EST documented in this encounter Functional Status [...] encounter Progress Notes * Micheal Moseley MD - 12/29/2020 1000 EST [facility] GASTROENTEROLOGY AND HEPATOLOGY PROGRESS / FOLLOWUP NOTE - 12/29/2020 Emigdio Veronica MD [facility] - Adult Primary [facility] [address] [place] [address] Veronica: Thank you for asking me to see your patient Gena Yun in the office today. I saw her along withgastroenterology fellow Dr. Fitzpatrick. As you know, Ms. Yun is a 60-year-old woman with cirrhosis, presumed to be secondary to nonalcoholic fatty liver disease (NAFLD). I saw her in consultation in February 2018, when she was asymptomatic from the standpoint of liver disease, and the MELD score was 8 (range 6-40). She subsequently returned to seeing her previous weigher operator Dr. Ijeoma Smith at [facility]. Surveillance endoscopy in 2018 showed small esophageal varices andportal hypertensive gastropathy. A colonoscopy was performed at the same session, and both procedure s were performed with general anesthesia. Surveillance endoscopy was recommended. The patient has subsequently changed her primary care to you. Over the past year, the patient has had persistent diffuse abdominal pain and constipation, the latter of which was refractory to Dulcolax, senna, and recom mended doses of MiraLAX. In parallel, she developed ascites and fluid retention, and diuretics wereinstituted. On diuretics, there has been substantial improvement in fluid retention, but there has been a parallel reduction in renal function. Serum TSH has been normal. A noncontrast CT scan [facility] the[facility]domen at [facility] did not report the presence of ascites. There have been no other intercurrent signs or symptoms of decompensated liver disease, including jaundice or gastrointestinal bleeding. Current medications include furosemide 80 mg daily, spironolactone 100 mg daily, thyroxine, ondansetron, oxycodone, Zoloft, and trazodone. On physical examination, the patient was found to be an obese woman weight 210 pounds (BMI 36.13), blood pressure 100/70, pulse 74. The skin revealed scattered spider angiomata over the upper torso. The sclerae were clear. The neck revealed no lymphadenopathy. The lungs were clear. The abdomen was nondistended and mildly diffusely tender. No masses were appreciated. The liver and spleen were not palpable. There was no pretibial edema. Mood and affect were appropriate. Laboratory data obtained in November 2020 show white blood cell count 4.31, hematocrit 33.3, platelets 41, sodium 133, potassium 5.3, creatinine 1.64 (GFR 34). In summary, Ms. Yun has cirrhosis, presumably secondary to NAFLD, which has been complicated by ascites, now not clinically obvious at this tome. I am concerned about the progressive reduction in renal function, and it may be prudent to reduce the dosage of diuretics. To resolve this issue, I will arrange for updated laboratory testing as well as an abdominal ultrasound. I do not know the cause of abdominal pain, but it is likely related to constipation. I have encouraged the patient to increase the dosage of MiraLAX to achieve regular bowel movements. I cannot exclude the possibility of hepatic malignancy (which should be resolved on ultrasound as above) or gastroduodenal pathology. I will therefore arrange for an upper endoscopy with anesthesia sedation. I willbe in touch with you and the patient with the results of all testing, and additional recommendations will follow. Thank you once again for allowing me to see this patient in consultation with you. Should you have any further questions regarding this evaluation, please feel free to contact me at any time. Sincerely, Micheal Moseley MD,PhD cc: Emigdio Veronica MD documented in this encounter Plan of Treatment Upcoming Encounters Date Type Department Care Team (Late st Contact Info) Description 01/04/2025 13:00 EST Office Visit [facility] Ophthalmology - [address] [phone] Gagandeep Rome MD [address] [place] [address], [facility] 5 [place] [phone] 02/11/2025 13:30 EDT Telemedicine [facility] Hematology & Oncology [address] [phone] Dana Padilla MD [address] [place] [address], [facility] 2 [place] [address] Pending Results Name Type Priority Associated Diagnoses Date /Time UPPER ENDOSCOPY (EGD) GI Routine Cirrhosis, nonalcoholic (HCC-CMS) Generalized abdominal pain 03/26/2021 10:29 EDT documented as of this encounter Results * (ABNORMAL) PROTIME (12/29/2020 11:46 EST) I.N.R. 1.3(H) 0.9 - 1.1 Ratio 12/29/2020 12:18 [facility] Pro Time 14.9(H) 10.3 - 13.4 secs 12/29/2020 12:18 [facility] Blood VENOUS BLOOD / Unknown Venipuncture / Unknown 12/29/2020 11:46 EST 12/29/2020 11:50 EST Narrative [facility] - 12/29/2020 12:18 EST Moderate Intensity Coumadin INR = 2.0-3.0 Adjustments in anticoagulant therapy dose should be based on the INR and NOT on the Protime. us Micheal Moseley MD PhD HEMATOLOGY & PF4 ORDERA BLES Final Result [facility] [address] [place] [address] * (ABNORMAL) COMPREHENSIVE METABOLIC PANEL (CMP) (12/29/2020 11:46 EST) Sodium 138 136 - 145 mEq/L 12/29/2020 12:28 [facility] Potassium 5.0 3.5 - 5.0 mEq/L 12/29/2020 12:28 [facility] Chloride 102 96 - 110 mEq/L 12/29/2020 12:28 [facility] CO2 Total 24 22 - 32 mEq/L 12/29/2020 12:28 [facility] Glucose 88 70 - 100 mg/dL 12/29/2020 12:28 [facility] BUN 22 10 - 26 mg/dL 12/29/2020 12:28 [facility] Creatinine 1.43(H) 0.52 - 1.04 mg/dL 12/29/2020 12:28 [facility] eGFR 40(L) >60 mL/min/1.7 3m2 12/29/2020 12:28 [facility] Comment:eGFR calculated lobito coppola CKD-EPI equation for non- Americans. Multiply eGFR by 1.16 for patients. Total Protein 7.0 6.3 - 8.2 g/dL 12/29/2020 12:28 [facility] Albumin 4.1 3.4 - 4.9 g/dL 12/29/2020 12:28 [facility] Alkaline Phosphatase 75 38 - 126 U/L 12/29/2020 12:28 [facility] AST 24 15 - 46 U/L 12/29/2020 12:28 [facility] ALT 19 <35 U/L 12/29/2020 12:28 [facility] Bilirubin, Total 1.0 <1.4 mg/dL 12/29/19 12:28 [facility] Calcium 9.0 8.5 - 10.5 mg/dL 12/29/2020 12:28 [facility] Calculated Calcium 8.9 8.5 - 10.5 mg/dL 12/29/2020 12:28 [facility] Blood VENOUS BLOOD / Unknown Venipuncture / Unknown 12/29/2020 11:46 EST 12/29/2020 11:50 EST Micheal Moseley MD PhD CHEMISTRY & BLOOD GAS O RDERABLES Final Result [facility] [address] [place] [address] documented in this encounter Visit Diagnoses Diagnosis Cirrhosis, nonalcoholic (HCC-CMS)- Primary Cirrhosis of liver without mention of alcohol Generalized abdominal pain Abdominal pain, generalized documented in this encounter Care Teams Gaggerman Relationship Specialty Start Date End Date Emigdio Veronica MD [address] [place] [phone] PCP - General Internal Medicine - Primary Care 05/22/20 02/21/24 documented as of this encounter
--- OUTSIDE RECORDS SUMMARY | 2024-11-22 17:18 | XMS_ITS | Encounter Summary ---
Author Organization [facility] Address [address] [place] [address] Care Team Providers Care Snuff Maker Name Role Phone Emigdio Veronica MD Primary Care Provider + Reason for Visit * Reason Onset Date Comments Results 12/31/2020 Encounter Details Date Type Department Care Team (Late st Contact Info) Description 12/31/2020 Telephone [facility] Cancer Center Hematology & Oncology - [facility] [address] [place], [place] [phone] Starr Paige MD [address] [place] [phone] Results Social History Tobacco Use Types [...] Start Date 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 Maritza Beltran 12/31/2020 9:02 documented in this encounter Plan of Treatment Upcoming Encounters Date Type Department Care Team (Late st Contact Info) Description 01/04/2025 13:00 EST Office Visit [facility] Ophthalmology - [address] [phone] Gagandeep Rome MD [address] [place] [address] 5 [place] [phone] 02/11/2025 13:30 EDT Telemedicine [facility] Hematology & Oncology - [address] [phone] Dana Padilla MD [address] [place] [address], [facility] 2 [place] [phone] documented as of this encounter Procedures Procedure Name Priority Date/Time Associated Diagnosis Comments COMPLETE BLOOD COUNT AND DIFFERENTIAL Routine 12/25/2020 documented in this encounter Results * (ABNORMAL) COMPLETE BLOOD COUNT AND DIFFERENTIAL (12/25/2020) WBC, External 4.47(A) 4.8 - 10.8 [facility] RBC, External 4.23 [facility] Hemoglobin, External 12.6 [facility] HCT, External 38.5 [facility] MCV, External 91.0 [facility] MCH, External 29.8 [facility] MCHC, External 32.7(A) 33 - 37 [facility] PLT, External 51(A) 140 - 440 [facility] RDW-CV, External 14.9(A) 11.5 - 14.5 [facility] Neutrophils, External 83.0(A) 40.0 - 72.0 [facility] Lymphocytes, External 8.1(A) 17 - 45 [facility] Monocytes, External 7.6 [facility] Eosinophils, External 0.7 [facility] Basophils, External 0.4 [facility] ABS Neutrophils, External 3.71 [facility] ABS Lymphs, External 0.36(A) 1.2 - 3.4 [facility] ABS Monocytes, External 0.34 [facility] ABS Eosinophils, External 0.03 [facility] ABS Basophils, External 0.02 [facility] Blood VENOUS BLOOD / Unknown 12/25/2020 us Historical Provider PACKAGES & DNA PROBE DEMI CARDENAS Final Result [facility] documented in this encounter Visit Diagnoses Not on filedocumented in this encounter Care Teams Snuff Maker Relationship Specialty Start Date End Date Emigdio Veronica MD [address] [place] [phone] PCP - General Internal Medicine - Primary Care 05/22/20 02/21/24 documented as of this encounter
--- OUTSIDE RECORDS SUMMARY | 2024-11-22 17:18 | XMS_ITS | Encounter Summary ---
Author Organization [facility] Address [address] [place] [address] Care Team Providers Care Medical Microbiologist Name Role Phone Emigdio Veronica MD Primary Care Provider + Reason for Visit * Reason Comments Follow-up Encounter Details Date Type Department Care Team (Latest Contact Info) Description 12/31/2020 10:30 EST Telemedicine [facility] Cancer Center Hematology & Oncology - [facility] [place] [address] [place], [place] [phone] Starr Paige MD [address] [place] [address] Thrombocytopenia ([facility]) (Primary Dx) Social History Tobacco Use Types [...] 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 Patient is following Dr. Ijeoma Smith, GI Department in [facility] for long-standing decompensated liver cirrhosis, portal hypertension and hepatic encephalopathy. She was also formerly seen by hematology oncology clinic in [facility], underwent bone marrow biopsy for [...] longer seeing Dr. Smith in hepatology in [facility] [place]. TIPS and liver transplant listing are on stand by. Interval history: Visit is conducted by telemedicine secondary to COVID19 pandemic and social distancing. She is slowly recovering from the procedure, She underwent cystoscopy, left ureteroscopy and left ureteral double J stent removal on 12/17/2020 The patient had an uncomplicated hospital course. Patient will follow up with Dr. Ortez in 1 month for postop visit and ultrasound. She has an intermittent bleeding, that stops on it's own. ROS: 10 review of system is completed and is negative, except for the pertinent positives noted above. PAST MEDICAL HISTORY: Past Medical History: Diagnosis Date ??? Anemia ??? Anxiety ??? Asthma 12/10/2020 currently not taking - mild persistent - see dr. Veronica 11/20/2021 ??? Bleeding disorder ([facility]) ??? Bursitis right shoulder ??? C. difficile colitis 07/25/2015 Hospitalized after kidney stone removal ??? Chronic ITP (idiopathic thrombocytopenia) ([facility]) 12/10/2020 - see 11/20/2020 Dr. Veronica H&P, (managed by Starr Paige MD) ??? Chronic kidney disease ??? Cirrhosis of liver ([facility]) ??? Clotting disorder (HCC-CMS) ??? COPD exacerbation ([facility]) 04/26/2020 ??? Depression ??? Does not exercise ??? Drug-seeking behavior Per Dr Amelia Tjierina and notes from [facility] patient misconstrued information to several [...] directed every 4 hours as needed. ??? docusate sodium (COLACE) 100 mg capsule TAKE 1 CAPSULE BY MOUTH TWICE A DAY 60 Cap 11 ??? ERGOCALCIFEROL, VITAMIN D2, (VITAMIN D ORAL) Take by mouth. ??? ferrous gluconate (FERGON) 324 mg (38 mg iron) tablet Take 324 mg by mouth daily with breakfast. ??? furosemide (LASIX) 40 mg tablet TAKE 2 TABLETS BY MOUTH EVERY DAY 180 Tab 3 ??? hydrOXYzine (ATARAX) 25 mg tablet TAKE [...] Pain. Daily Max: 10 mg 20 Tab 0 ??? OXYGEN-AIR DELIVERY SYSTEMS MISC 2 L by misc (non-drug; combo route) route at bedtime. ??? phenazopyridine (PYRIDIUM) 200 mg tablet Take 1 Tab by mouth 3 times daily as needed for Pain. 10 Tab 0 ??? predniSONE (DELTASONE) 20 [...] mg by mouth daily before breakfast. ) 90 Tab 3 ??? spironolactone (ALDACTONE) 50 mg tablet Take one 50 mg tablet with one 100 mg tablet daily for a total of 150 mg daily. 90 Tab 0 ??? SYMBICORT 160-4.5 mcg/actuation HFA aerosol inhaler inhaler Inhale 2 Puffs as directed daily. (Patient taking differently: Inhale 2 Puffs as directed daily before breakfast. ) 1 Inhaler 11 ??? TAMSulosin (FLOMAX) 0.4 mg capsule Take 1 Cap by mouth at bedtime. 90 Cap 3 ??? traZODone (DESYREL) 100 [...] Gets together: Not on file ??? Attends rastafarian service: Not on file ??? Active member of club or organization: Not on file ??? Attends meetings of clubs or organizations: Not on file ??? Relationship status: Not on file PHYSICAL EXAMINATION: There were no vitals taken for this visit. Visit is conducted by telemedicine, physical exam was not performed. LABS REVIEWED: Results for [facility]UN[facility] Doug ( ) as of 12/31/2020 10:34 Ref. Range 12/29/2020 11:46 WBC Latest Ref Range: 4.00 - 12.40 K/cmm 3.45 (L) RBC Latest Ref Range: 3.86 - 5.04 M/cmm 4.14 Hemoglobin Latest Ref Range: 11.6 - 15.2 gm/dL 12.1 HCT Latest Ref Range: 34.9 - 44.4 % 36.2 MCV Latest Ref Range: 81 - 98 fl 87 MCH Latest Ref Range: 26.7 - 33.3 pg 29.2 MCHC Latest Ref Range: 32.1 - 35.9 gm/dL 33.4 RDW-CV Latest Ref Range: <14.7 % 15.2 (H) RDW-SD Latest Ref Range: <50.4 fl 48.6 PLT Latest Ref Range: 141 - 377 K/cmm 41 (L) MPV Latest Ref Range: 9.5 - 12.7 fl 9.5 Neutrophils Latest Units: % 85.2 Lymphocytes Latest Units: % 7.5 Monocytes Latest Units: % 6.1 Eosinophils Latest Units: % 0.6 Basophils Latest Units: % 0.3 Immature Grans Latest Units: % 0.3 ABS Neutrophils Latest Ref Range: 2.20 - 8.85 K/cmm 2.94 ABS Lymphs Latest Ref Range: 1.09 - 3.30 K/cmm 0.26 (L) ABS Monocytes Latest Ref Range: 0.10 - 0.80 K/cmm 0.21 ABS Eosinophils Latest Ref Range: 0.03 - 0.61 K/cmm 0.02 (L) ABS Basophils Latest Ref Range: 0.01 - 0.11 K/cmm 0.01 Results for TARA YUN ( ) as of 12/31/2020 10:34 Ref. Range 12/29/2020 11:46 Sodium Latest Ref Range: 136 - 145 mEq/L 138 Potassium Latest Ref Range: 3.5 - 5.0 mEq/L 5.0 Chloride Latest Ref Range: 96 - 110 mEq/L 102 CO2 Latest Ref Range: 22 - 32 mEq/L 24 BUN Latest Ref Range: 10 - 26 mg/dL 22 Creatinine Latest Ref Range: 0.52 - 1.04 mg/dL 1.43 (H) Glucose, Serum Latest Ref Range: 70 - 100 mg/dL 88 Calcium Latest Ref Range: 8.5 - 10.5 mg/dL 9.0 Calculated Calcium Latest Ref Range: 8.5 - 10.5 mg/dL 8.9 MAGNESIUM Unknown Rpt Magnesium Latest Ref Range: 1.7 - 2.8 mg/dL 1.9 Total Protein Latest Ref Range: 6.3 - 8.2 g/dL 7.0 Albumin Latest Ref Range: 3.4 - 4.9 g/dL 4.1 AST Latest Ref Range: 15 - 46 U/L 24 ALT Latest Ref Range: <35 U/L 19 Bilirubin, Total Latest Ref Range: <1.4 mg/dL 1.0 Total Alkaline Phosphatase Latest Ref Range: 38 - 126 U/L 75 GFR, Calculated Latest Ref Range: >60 mL/min/1.73m2 40 (L) IMAGING REVIEWED: June 01, 2017: Findings: The left kidney is normal in size (12.8 cm). No hydronephrosis, mass, or shadowing calculus is identified. Color Doppler flow is present in the left kidney. The bladder is normal. Spleen is enlarged, measuring 21 x 12.6 x 17.3 cm (2242 milliliters). Normal Doppler flow is present within the splenic artery and vein. Impression: 1. Normal ultrasound of the left kidney and bladder. 2. Splenomegaly IMAGES: 03-14-19 Impression: 1. Region of palpable concern corresponds with the most superior aspect of the abdominal wall hernia repair mesh. 2. Cirrhotic liver 3. Distended portal vein, without evidence of thrombosis. 4. Post cholecystectomy. I have personally reviewed the images and the above interpretation and agree with the findings. PATHOLOGY: [facility] [place] on May 01, 2019 she underwent a bone marrow biopsy that showed mature trilineage hematopoiesis with no evidence of bone marrow disease. Bone marrow biopsy 04/09/2013: (Performed at [facility] [place] [place]) ---Diagnosis--- 1. Progressive pancytopenia, chronic Hep C [...] hypersplenism. - Patient was formerly evaluated at [facility] [place] with subsequent bone marrow biopsy that showed [...] perioperativeTPO in the past. Plan: RTC in 3 months, earlier is symptoms arise. Starr Paige Hematology and Oncology I am conducting today's visit by telephone due to the COVID-19 pandemic, and by the [facility] the [facility] to minimize patient exposure and provide social [...] via phone. I spent a total of __17 minutes on the date of this encounter [...] [facility] Ophthalmology - [address] [phone] Gagandeep Rome MD [address] [place] [address] 5 [place] [phone] 02/11/2025 13:30 EDT Telemedicine [facility] Hematology & Oncology - [address] [phone] Dana Padilla MD [address] [place] [address], [facility] 2 [place] [phone] documented as of this encounter Visit Diagnoses Diagnosis Thrombocytopenia (HCC-CMS)- Primary Thrombocytopenia, unspecified documented in this encounter Care Teams Medical Microbiologist Relationship Specialty Start Date End Date Emigdio Veronica MD [address] [place] [phone] PCP - General Internal Medicine - Primary Care 05/22/20 02/21/24 documented as of this encounter
--- OUTSIDE RECORDS SUMMARY | 2024-11-22 17:18 | XMS_ITS | Encounter Summary ---
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 Veronica. This is the 5th encounter. SUBJECTIVE: Reviewed assessment and plan from previous visit with pt. Tara states I'm going to an in person GI appointment this morning. OBJECTIVE: Comment(s): Phone contact. TOPIC OF CONVERSATION: Engaged patient in conversation related to positive behavior change, self- management, goal setting and action planning using motivational interviewing and active listening. Discussed with Tara herrecent medication interventions, one resulting in overnight stay at hospital. Has severe leg cramps, working on increasing her magnesium to see if this makes a difference - her blood work as noted irregularities. Sleep study completed with no recommendations, she reports that Dr. Veronica will look into this. Housing/relationship is highly stressed, is hopeful to find more suitable living arrangements in the spring - working on moving in with a good friend. Continue to encourage making the move when feeling healthy enough as well as keeping medications locked and getting emotional support fromgood friends and family. CHT SW will send housing information when patient is more receptive. Patient's Primary Care Site: Adult Primary Care [address], [address], [place] Total Time: 25 min phone, 5 min note Referral: na Follow up: Date: Tuesday, January 26, 2021 at 9 am With: Doris Joseph Ac/Dc Rewinder Location: phone Status: Active documented in this encounter Plan of Treatment Upcoming Encounters Date Type Department Care Team (Late st Contact Info) Description 01/04/2025 13:00 EST Office Visit [facility] Ophthalmology - [address] [phone] Gagandeep Rome MD [address] [place] [address], [address] [place] [phone] 02/11/2025 13:30 EDT Telemedicine [facility] Cancer Center Hematology & Oncology - [facility] [address] [place] [address] Dana Padilla MD [address] [facility], [address] [place] [phone] documented as of this encounter Visit Diagnoses Not on filedocumented in this encounter Care Teams Senior Audit Manager Relationship Specialty Start Date End Date Emigdio Veronica MD [address] [place] [phone] PCP - General Internal Medicine - Primary Care 05/22/20 02/21/24 documented as of this encounter
--- OUTSIDE RECORDS SUMMARY | 2024-11-22 17:18 | XMS_ITS | Encounter Summary ---
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 Patient aware lab results are improved. Patient will decrease lasix down to 40 mg. Patient will mi date on calendar for 2 weeks and repeat the BMP around February 11. The patient indicates understanding of these issues and agrees with the plan. No barriers. * Telephone Encounter - Emigdio Veronica MD - 12/31/2020 1643 EST Yes I would still recommend reducing her lasix to 40 mg from 80 mg daily. It is very reasuring that her creatinine dropped from 2.0 at outside labs to 1.4 this week. Unfortunately it is still abnormally high and thus I would advise the drop in lasix. We should repeat her BMP in two weeks. I have ordered it. * Telephone Encounter - Jes Mayorga RN - 12/31/2020 1554 EST See BMP drawn on Tuesday12-29-20 Patient did decrease spironolactone from 150 mg down to 100 mg. Based on results from Tuesday, does patient need to decrease the Lasix from 80-40 mg. * Telephone Encounter - Emigdio Veronica MD - 12/31/2020 1413 EST As documented in my note 5 days previously I have ordered a repeat BMP (external for [facility]) for thisweek to track her kidney function. Prior to her visit with Dr. Moseley I expressed concern that her GFR was dropping and that her water pills needed to be reduced. She was instructed at that time to reduce her dose of spirolactone from 150 mg to 100 mg (a 33% dose drop). Pending her upcoming BMP we may very well need to drop her water pills further. I would encourage her to adhere to the plan I outlined, to get her BMP drawn this week. If her GFR is not improving I would advise dropping her lasix from 80 mg daily to 40 mg daily. * Telephone Encounter - Karol Schultz RN - 12/31/2020 1336 EST To pcp for results. * Telephone Encounter - Tejas Bee - 12/31/2020 1212 EST Reason for Call: Labs Only Summary/Symptoms: Pt requesting recent kidney function lab work results. Also mentions that her GI doctor thinks she should be cut down on the water pills. Pls call Tejas Bee 12/31/2020 12:13 documented in this encounter Plan of Treatment Upcoming Encounters Date Type Department Care Team (Late st Contact Info) Description 01/04/2025 13:00 EST Office Visit [facility] Ophthalmology - [address] [phone] Gagandeep Rome MD [address] [place] [address], [facility] 5 [place] [phone] 02/11/2025 13:30 EDT Telemedicine [facility] [place] Hematology & Oncology - [address] [address] Dana Padilla MD [address] [place] [address], [facility] 2 [place] [phone] documented as of this encounter Visit Diagnoses Diagnosis Elevated serum creatinine- Primary Other nonspecific findings on examination of blood documented in this encounter Care Teams Swimming Pool Service Technician Relationship Specialty Start Date End Date Emigdio Veronica MD [address] [place] [phone] PCP - General Internal Medicine - Primary Care 05/22/20 02/21/24 documented as of this encounter
--- OUTSIDE RECORDS SUMMARY | 2024-11-22 17:18 | XMS_ITS | Encounter Summary ---
Author Organization [facility] Address [address] [place] [address] Care Team Providers Care Insurance Office Supervisor Name Role Phone Emigdio Veronica MD Primary Care Provider + Reason for Visit * Auth/Cert Specialty Diagnoses / Procedures Referred By Serene huitron Referred To Contact Diagnoses Left ureteral stone Procedures NH CYSTO/URETERO W/LITHOTRIPSY &INDWELL STENT INSRT CYSTOURETHROSCOPY, WITH LEFT URETEROSCOPY AND LITHOTRIPSY possible left retrograde pyelogram Referral ID Status Reason Start Date Expiration Date Visits Re quested Visits Authorized [id number] 1 1 Encounter Details Date Type Department Care Team (Late st Contact Info) Description 12/17/2020 8:35 EST - 12/18/2020 15:23 [facility] [[email or web address] Hospital Encounter [facility] [address] [place] [address] Hardik Vargas DO [address] [facility], [address] [place] [address] Left ureteral stone (Primary Dx); MUSA (acute kidney injury) ([facility]); Pain of upper abdomen Discharge Disposition: Home [...] 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 No / Unsure 12/17/2020 8:34 EST documented as of this encounter Last Filed Vital Signs Vital Sign Reading Time Taken Comments Blood Pressure 97/56 12/18/2020 0600 EST Pulse - - Temperature 36.7 ??C (98.1 ??F) 12/18/2020 0500 EST Respiratory Rate 16 12/18/2020 0500 EST Oxygen Saturation 98% 12/18/2020 0500 EST Inhaled Oxygen Concentration - - Weight 95.1 kg (209 lb 10.5 oz) 12/17/2020 1700 EST Height 162.6 cm (5' 4) 12/17/2020 1700 EST Body Mass Index 35.99 12/17/2020 1700 EST documented in this encounter Functional Status [...] Black RN documented in this encounter Discharge Summaries * Terra Chiu PA-C - 12/18/2020 0817 EST Surgery Discharge Summary Primary Care Provider: Emigdio Veronica Attending Physician: Hardik Vargas DO Admit Date: 12/17/2020 Discharge Date: 12/18/2020 Disposition: Home or self care Problems and Procedures Admitting Diagnosis: Left ureteral stone Principal/Final Diagnosis: Same Additional Problems Managed in the Hospital Active Hospital Problems Diagnosis Date Noted ??? *Left ureteral stone 12/03/2020 Resolved Hospital Problems No resolved problems to display. Principal Procedure: Cystoscopy, left ureteroscopy and left ureteral double J stent removal Date: 12/17/2020 Secondary Procedures: none Hospital Course Tara Yun is a 60 y.o. female who has been having left flank pain back in Briseyda 13.?? Had aurine culture that was done that showed gram-positive cocci and a stent was placed during that time.?? She had a CT renal colic in October that showed a 4 mm left mid ureter stone.?? She presented on 12/17/2020 electively for treatment of the stone with ureteroscopy.?? She underwent Cystosc opy, left ureteroscopy and left ureteral double J stent removal. No stones were found during ureteroscopy. She was admitted to the floor overnight for observation. Postop day #1 patient was afebrile,vital signs stable. Good urinary output. The patient was discharged to home on December 18, 2020. Patient was afebrile, vital signs stable, tolerating diet, ambulating and pain controlled oral analgesics time of discharge. The patient had an uncomplicated hospital course. Patient will follow up withDr. Ortez in 1 month for postop visit and ultrasound Allergies and Immunizations Allergies Allergen Reactions ??? Morphine Anaphylaxis ??? Sulfa (Sulfonamide Antibiotics) Anaphylaxis ??? Tylenol [Acetaminophen] Other (See Comments) Contraindication with medical hx ??? Aspirin Other (See Comments) Contraindication with medical hx ??? Injectafer [Ferric Carboxymaltose] ??? Lyrica [Pregabalin] Anxiety Insomnia ??? Reglan [Metoclopramide Hcl] Rash Immunization History Administered Date(s) Administered ??? Historical Influenza Vaccine, Unspecified 09/24/2014 ??? [...] (Adult) 2 Lf Vaccine =>7yo IM 03/17/2019 Transition of Care Plans Condition at Discharge Good Assessment at Discharge Vital signs: No data found. Results Pending at Discharge Test results still pending from this admission None Relevant Studies at Discharge None Last Lab Results at Discharge BUN: Lab Results Component Value Date BUN 33 (H) 12/18/2020 Creatinine: Lab Results Component Value Date CREATININE 1.64 (H) 12/18/2020 CBC: Lab Results Component Value Date WBC 4.31 12/18/2020 RBC 3.86 12/18/2020 HGB 11.2 (L) 12/18/2020 HCT 33.3 (L) 12/18/2020 MCV 86 12/18/2020 MCH 29.0 12/18/2020 MCHC 33.6 12/18/2020 PLT 41 (L) 12/18/2020 DIFFTYPE Manual 08/25/2020 SEDRATE 4 07/13/2019 Electrolytes: Lab Results Component Value Date NA 133 (L) 12/18/2020 K 5.3 (H) 12/18/2020 CL 94 (L) 12/18/2020 CO2 26 12/18/2020 Discharge Follow Up Upcoming Appointments Dec 29, 2020 10:00 New Patient Liver with Micheal Moseley MD [facility] Gastroenterology - [facility] (--) [address] [facility] [id number] Dec 31, 2020 10:30 Telemedicine Visit 15 Mins with Starr Paige MD [facility] Hematology & Oncology - [facility] ([facility]) [address] [facility] [id number] Jan 19, 2021 15:30 Ultrasound with Ultrasound Urology [facility] Urology [facility] (--) [address] [facility] [id number] Jan 19, 2021 16:00 Office Visit with Lon Ortez MD [facility] Urology [facility] (--) [address] [facility] [id number] Mar 13, 2021 9:30 Telemedicine Visit 15 Mins with Starr Paige MD [facility] Hematology & Oncology - [facility] ([facility]) [address] [facility] [id number] Mar 19, 2021 8:45 Telemedicine Visit with Emigdio Veronica MD [facility] Primary [facility] - [place] ([facility]) [address] [facility] [address] Terra Chiu PA-C 12/22/2020 12:00 Cosigned by Hardik Vargas DO at 12/24/2020 10:33 EST documented in this encounter Discharge Instructions * Discharge Instr - AVS First Page* Terra Chiu PA-C - 12/18/2020 14:20 EST Diet: Resume preoperative diet Activity: As tolerated Driving: No driving while taking narcotic pain medication Skin/Wound Care: Resume normal skin care. Bathing: Shower only Shower with soap and water daily. Symptoms to Call Your Doctor About: Burning with urination, Chest pain, Dizziness, Increased blood in urine, Increased pain, Nausea or vomiting, Pain unrelieved by medication, Shortness of breath, Temperature greater than 101 degrees Fand Urinary retention Appointments: Follow-up Dr. Ortez as noted below Please have labs drawn on Tuesday, December 22, 2020 Future Appointments Date Time Provider Department Center 12/29/2020 10:00 Micheal Moseley MD [facility] None 12/31/2020 10:30 Starr Paige MD EP2 Hem/Onc [facility] 01/19/2021 15:30 Urology, Ultrasound [facility] Uro None 01/19/2021 16:00 Lon Ortez MD [facility] Uro None 03/13/2021 9:30 Starr Paige MD EP2 Hem/Onc [facility] 03/19/2021 8:45 Emigdio Veronica MD [facility] Follow-up Services Contacted at Discharge: Attending physician documented in this encounter Medications at Time [...] EVERY DAY 180 Tab 3 12/12/2020 1 hydrOXYzine (ATARAX) 25 mg tablet TAKE 1 TABLET BY MOUTH AT BEDTIME NEEDED 90 Tab 3 12/15/2020 1 levothyroxine (SYNTHROID) 25 mcg tablet Take 1 Tab by mouth daily. Unknown dose 90 Tab 3 11/03/2020 1 LUSUTROMBOPAG ORALIndications: Jacquard Plate Maker prescribed -- 7 day course prior to [...] HFA aerosol inhaler inhalerIndicatio ns:COPD with asthma ([facility]) Inhale 2 Puffs as directed daily. 1 Inhaler 11 06/20/2020 1 TAMSulosin (FLOMAX) 0.4 mg capsule Take 1 Cap by mouth at bedtime. 90 Cap 3 12/15/2020 1 documented as of this encounter Discharge Disposition Disposition Code Departure Means Destination Home or Self Group Home documented in this encounter Progress Notes * Mere Richard, DIRECTOR HOME HEALTH - 12/18/2020 1117 EST Initial Case Management/Social Work Assessment and Discharge Plan/Readmission Risk Assessment ?? REASON FOR ADMISSION: Left uretal stone Patient understands reason for admission: Yes ?? PATIENT CONTACT INFO VERIFIED: Yes PATIENT ADDRESS VERIFIED: Yes Type of housing (single family, condo, apartment, m[facility]p, single room occupancy, [facility] funded hotel room, group half-way) - Single family Who does the patient live with? Fiance Does the patient have access to their own bedroom/bathroom/kitchen - or is it shared with others? Shared with fiance Name of housing complex (ex [place], [facility], etc)- n/a Housing Authority/Managing Organization - n/a Community Care Providers (director of casework services, [facility] nurse, etc) name and contact information- n/a ?? LIVING ARRANGEMENTS AND ACCESSIBILITY ISSUES: Living Arrangements: Private residence, Spouse / significant other Levels: 1 Stairs to enter: 2 Handicap access: None Bathroom located on bedroom level?: Yes ?? What in home social supports are available to the patient? Spouse / significant other Is 24/7 care available? Yes ?? ADVANCED DIRECTIVES, POA &/or COLST IN PLACE: Healthcare Directive: No, patient does not have advance directive for healthcare treatment Information Provided on Healthcare Directives: No Information on Healthcare Directives Requested: No DIRECTIVES FOR FINANCES: Directive For Finances: No ?? TRANSPORTATION: Transportation: Family ?? CULTURAL, RASTAFARIAN and/or LANGUAGE factors affecting health care/discharge planning: Spiritual/Cultural Requests: None Any factors affecting health care/discharge planning?: No ?? Insurance in Place: Yes Medical Insurance: Yes Type of insurance: Medicare, Medicaid Medicare type: A, B Medicaid Type: Community Referred to patient financial services: No ?? Nutrition: ?? DISCHARGE RISK ASSESSMENT: None of the above risks identified Total # selected above: Score: Zero ?? Tentative plan to address the risk [...] place/initiated?: No, not indicated ?? FUNCTIONAL STATUS: Activities patient requires assistance: None Assistive Device: None ?? COMMUNITY RESOURCES/SUPPORTS: Primary Care Provider: Emigdio Veronica PCP Verified: Yes Specialists: Oncology, Other(Urology) Type of Home Health Services: None DME Provider: Pharmacy: [id number] - [place], [place] - [address] [place] [address] ?? [facility] - [place], [place] - [address] [facility] [address] [facility] [id number] ?? [id number] - [facility], [place] [address] [facility] [facility] [address] [facility] [address] [facility], [address] [facility] [address] ?? Home Health: Other: ?? POST HOSPITAL TRANSITION PLAN: Tara Yun is 60 y/o female who was admitted to [facility] for left uretal stone. ?? Tara resides with her fiance in a single story home with 2 stairs to enter. She is independent with ADLs and ambulatory without assistance at baseline. She did not have any services prior to admission. ?? Sukhjinder reyes works here at [facility] and will be able to drive her home when discharged. She has been enrolled in meds to beds. She has no new skilled needs for discharge. Per team, she will dischargetoday v tomorrow. Pt is hoping to stay an extra night since she has had so many recent admissions. No further CM needs at this time. ?? [place] Ext [phone] Pager #[phone] * Vickey Burns MD - 12/18/2020 0629 EST Urology Progress Note Chief complaint: ?left ureteral stone POD # 1 s/p Cystoscopy, left ureteroscopy and left ureteral double J stent removal 24 hour events: OR as above, admitted Subjective/Objective Subjective: Having some left flank pain which is somewhat crampy. The cramping is 8-9/10. She does feel like she is emptying her bladder completely, but her urine has been dark red. ROS as above. All others negative. Objective: Patient Vitals for the past 24 hrs: BP Temp Temp src Resp SpO2 Height Weight 12/18/20 0600 97/56 -- -- -- -- -- -- 12/18/20 0500 91/56 36.7 ??C (98.1 ??F) Tympanic 16 98 % -- -- 12/17/20 2212 96/64 36.7 ??C (98 ??F) Oral 16 93 % -- -- 12/17/20 1728 -- -- -- 16 93 % -- -- 12/17/20 1700 90/57 36.8 ??C (98.2 ??F) Oral 16 94 % 162.6 cm (64) 95.1 kg (209 lb 10.5 oz) 12/17/20 1615 90/49 -- -- 16 96 % -- -- 12/17/20 1600 91/48 -- -- 13 97 % -- -- 12/17/20 1545 (!) 87/44 -- -- 12 96 % -- -- 12/17/20 1530 91/45 -- -- 12 97 % -- -- 12/17/20 1515 (!) 82/40 -- -- 12 96 % -- -- 12/17/20 1500 (!) 86/43 -- -- 14 95 % -- -- 12/17/20 1445 (!) 81/43 -- -- 16 92 % -- -- 12/17/20 1430 98/50 -- -- 16 95 % -- -- 12/17/20 1421 (!) 84/55 36.3 ??C (97.3 ??F) Temporal 12 98 % -- -- 12/17/20 1228 -- -- -- -- 93 % -- -- 12/17/20 1226 -- -- -- -- 91 % -- -- 12/17/20 1225 -- -- -- -- 90 % -- -- 12/17/20 1148 -- -- -- -- 93 % -- -- 12/17/20 1146 -- -- -- -- 91 % -- -- 12/17/20 1145 -- -- -- -- 91 % -- -- 12/17/20 0858 116/67 35.8 ??C (96.4 ??F) Tympanic 17 94 % 162.6 cm (64) 95.1 kg (209 lb 10.5 oz) Heart Rate: [68 BPM-89 BPM] I&O By Type - 3 Shifts Including Current In: 1480 [P.O.:480; I.V.:1000] Out: 2130 [Urine:2129] Exam: Gen: NAD CV: Non cyanotic Resp: non labored Abdominal: Soft, non-distended Back: mild left CVA tenderness : Camacho draining Sediment urine Urine Assessment Void Prior to Procedure: 0900 Urinary Status: Continent, Voiding Urine Color: Maite Urine Appearance: Sediment Urine Odor: Malodorous Extremities: WWP Neuro: alert and oriented x3, no gross motor or sensory deficits MSK: nl ROM CBC Recent Labs 12/18/20427 WBC 4.31 RBC 3.86 HGB 11.2* HCT 33.3* MCV 86 MCHC 33.6 PLT 41* BMP Recent Labs 12/18/20427 CREATININE 1.60* BUN 33* NA 132* K 5.6* CL 97 CO2 25 Assessment/Plan Assessment: Pt is a 60 y.o. female POD #1 s/p Cystoscopy, left ureteroscopy and left ureteral double J stent removal. VSS, good pain control, labs with thrombocytopenia, hyperkalemia, and MUSA. Plan: PVRs x 2 today Will touch base with hematology today re: thromboytopenia Recheck K at noon Home today or tomorrow Diet: DIET REGULAR DVT Prophylaxis: ambulate, SCDs, holding heparin Vickey Burns MD 12/18/2020 6:30 Weekdays from 7AM-5PM page [phone] with questions. Cosigned by Hardik Vargas DO at 12/18/2020 11:19 EST * Poonam Jauregui, RT - 12/17/2020 1523 EST Respiratory Consult/Progress Note Indications for Respiratory therapy: Asthma history, initial consult Data Vitals: Heart Rate: 73 BPM, Resp: 16, SpO2: 93 % FIO2/O2 Device: O2 Flow Rate (L/min): 0 l/min, , O2 Device: None, FIO2 %: 21 % RT Orders: Accuneb Q6 PRN Protocol Scoring: Bronchodilator/Inhalation Therapy Frequency Bronchodialator - Clinical Indications: History of bronchospasm Breath Sounds: Faint wheezing, decreased throughout Response: No change / no treatment Pulse: <100 Resp Rate: <18 SOB: None Total Score: 2 Comment:: PRN Airway Clearance Therapy Frequency Airway Clearance - Clinical Indications: No clinical indications Breath Sounds: Clear / diminished Sputum: Small (tsp) / None Consistency: None Cough Effort: Strong/ non-productive Color: None Total Score: 0 Comment: Not indicated Hyperinflation Therapy Frequency Hyperinflation - Clinical Indications: No clinical indications Breath Sounds: Other Surgery: No X-Ray / Atelectasis: No O2 Requirements: O2 at baseline Mobility Status: Mobile / at baseline Total: 1 Comment: PRN Action/Events Patient's home regimen for asthma includes the following: ?? Symbicort BID ?? Albuterol MDI PRN ?? 2L O2 at night No nocturnal NIV. She does not normally use a spacer with her MDIs, but has used one before. Spacerre-education provided. Response/Results Nursing to administer BID Symbicort and PRN Albuterol MDI. RT to administer PRN Accuneb. RT OLIVIA 12/17/20 documented in this encounter H&P Notes * Jake Lockhart MD - 12/17/2020 1209 EST The preoperative history and physical which was performed within 30 days of this procedure has been reviewed and the clinically appropriate elements of the physical examination have been repeated. There are no changes to the documented history and physical or if so such changes are documented below Gen: Alert, in no distress CVS: RRR Pulm: Normal effort, unlabored, CTAB Abd: Soft, non tender, non distended Back: No CVA tenderness. Genital: Deferred Jake Lockhart MD 12/17/2020 12:09 Cosigned by Hardik Vargas DO at 12/17/2020 12:27 EST Source Note - Felice Givens MD - 12/04/2020 6:09 EST Urology Progress Note Dx: Renal colic 2/2 obstructing nephrolithiasis POD # 1 s/p Left ureteral stent placement 24 hour events: ??? OR for above ??? Plt 65 from 68 pre-op ??? Afeb HDS Subjective/Objective Subjective: Feels well, but had some trouble sleeping. She feels she is voiding well. Pain improved s/p stenting. Bowel Function: No BM, usually has a BM every few days. Denies nausea/vomiting, subjective fevers/chills, and CP/SOB. Objective: Vitals Temp: [36.1 ??C (97 ??F)-37.2 ??C (99 ??F)] Heart Rate: [68 BPM-102 BPM] BP: (83-117)/(46-80) SpO2: [94 %-100 %] Intake/Output Summary (Last 24 hours) at 12/04/2020 0609 Last data filed at 12/04/2020 0253 Gross per 24 hour Intake 3620 ml Output 2400 ml Net 1220 ml Exam: Gen: NAD Resp: NL on RA Abdominal: Soft, non-distended, NTTP Back: no CVA tenderness : No camacho Extremities: WWP Labs Recent Labs 12/04/20 0342 WBC 2.30* HGB 11.3* PLT 65* CREATININE 1.28* Assessment/Plan Assessment: Pt is a 60 y.o. female with Hx of Chronic ITP/Pancytopenia, COPD/HUEY (2L O2 at bedtime) GERD, CDiff, Cirrhosis/QUIROZ, hyperspleenism, hypothyroid, RA, Smoker (0.25PPD, 9PY) , currently POD #1 s/p leftureteral stenting. Recovering appropriately at this time, stable hgb and plts. Plan: ??? Pain: Tylenol, ditropan, pyridium, Oxy IR ??? Abx: 24 hours anceff ??? CLINICAL SPECIALIST Meds o Continue: Albuterol Q4P, Lasix 80/d, synthroid, spironolactone, symbicort 160- 4.5 x2 QAM (Given dulera) ??? Diet: reg ??? Activity as tolerated ??? Encourage IS ??? Anticoagulation: none Dispo Planning ??? ELEAZAR: today ??? Follow up: left ureteroscopy with laser lithotripsy, TBD Future Appointments Date Time Provider Department Center 12/10/2020 9:10 [facility] PAT CALL ROOM 4 [facility] None 12/15/2020 13:15 Emigdio Veronica MD [facility] 12/17/2020 9:30 Starr Paige MD EP2 Hem/Onc [facility] 12/29/2020 10:00 Micheal Moseley MD [facility] None 12/29/2020 14:30 Emigdio Veronica MD [facility] 03/13/2021 9:30 Starr Paige MD EP2 Hem/Onc [facility] FELICE GIVENS MD 12/04/2020 6:09 Weekdays from 7AM-5PM page [phone] with questions. For weekends and all other times, please page through PAS Cosigned by Lon Ortez MD at 12/04/2020 8:46 EST documented in this encounter Nursing Notes * Stacey Tang RN - 12/17/2020 1034 EST Preop Covid DOS screening questionnaire Please document by exception (only check those that apply). Have you had any of the following symptoms recently? Yes Yes Chronic ? Cough yes yes Shortness of breath or difficulty breathing yes yes Fever Chills Fatigue Muscle or body aches Severe Headache New loss of taste or smell Sore throat Congestion or runny nose Rash Nausea, vomiting, or diarrhea (rare in adults. More common in children) Were you covid tested? yes When: 12/12 Results: neg If yes, have you self-isolated/quarantined since your test? yes See admission vital signs documentation for admission temperature. documented in this encounter OR Notes * OR Surgeon - Hardik Vargas, DO - 12/17/2020 0835 EST OPERATIVE REPORT SERVICE DATE: 12/17/2020 SURGEON: Hardik Vargas MD LABORER [employer] TERMINAL: Jake Lockhart MD PREOPERATIVE DIAGNOSIS: Left ureteral stone. POSTOPERATIVE DIAGNOSIS: Passed left ureteral calculus. PROCEDURE: Cystoscopy, left ureteroscopy, and left ureteral double-J stent removal. ANESTHESIA: General. ESTIMATED BLOOD LOSS: Minimal. IV FLUIDS: Per anesthesia. URINE OUTPUT: Was not measured during the case. SPECIMENS: None. CULTURES: None. FOREIGN MATERIAL RETAINED: None. COMPLICATIONS: None. DISPOSITION: PACU in good condition, then admission to the floor. INDICATIONS: Ms Yun is a 60-year-old female who has been having left flank pain back in December 03. Had a urine culture that was done that showed gram- positive cocci and a stent was placed during that time. She had a CT renal colic in October that showed a 4 mm left mid ureter stone. She presents today electively for treatment of the stone with ureteroscopy. Benefits and risks of the procedure were discussed with the patient who elected to proceed. NARRATIVE: Informed consent was obtained and the patient was brought to the operating room. The patient received 2 g of IV cefazolin preoperatively. The patient received general anesthesia and she was placed in the dorsal lithotomy position. External genitalia were prepped and draped in the usual sterile fashion. We began the procedure by introducing a 22.5 rigid cystoscope through the urethra into the bladder. Check cystoscopy was done, which was normal. We then introduced a Sensor wire next to the stent that was emanating from the left ureteral orifice and advanced it all the way up to the kidney and confirmed placement by fluoroscopy. We then removed the old stent with a flexible grasper. We then introduced a semirigid ureteroscope into the bladder into the left ureteral orifice and inspected the whole ureter from the distal part all the way to the proximal part of the kidney and there were no stones that could be found. At that point, we decided to introduce a Glidewire through the semirigid ureteroscope and advanced it all the way to the kidney and confirmed placement by fluoroscopy. We then removed the semirigid ureteroscope and advanced a flexible digital ureteroscope with a freehand technique through the Sensor wire all the way up to the kidney and confirmed placement byfluoroscopy. We then removed the Sensor wire and inspected the whole kidney with a digital ureterosc ope and could not find any stones. So, we slowly removed the ureteroscope while inspecting the ureter, which looked very healthy without any stones and at that point, we decided to remove the ureteroscope and remove the remaining wire, leave her without a stent given that the ureter looked healthy.At the end of the procedure, we emptied the bladder with the scope. Dr Vargas was present throughout the entire procedure. Unless otherwise noted, there were no complications, no blood loss, no cultures obtained, no specimens removed, and no drains retained. Hardik Vargas DO / Jake Lockhart MD / CD Confirmation: [id number] Dictation ID: [id number] Attending attestation: I was present during the entire procedure. I saw and examined the patient 12/17/2020. I agree with the findings and plan of care documented in the resident's/fellow's note. Hardik Vargas DO 12/17/2020 16:04 documented in this encounter Miscellaneous Notes * Plan of Care - Cris Rolon - 12/18/2020 1523 EST Problem: Daily Care Plan Goals Goal: Care Plan Documentation Outcome: Met This Shift Flowsheets (Taken 12/18/2020 1522) Area of Focus: Discharge Plan Goal This Shift: DC planning Note: Data: DC order received. Action: DC teaching provided to pt. Stressed importance of non-narcotic pain control. IV removed and dsg applied. Response: Understanding verbalized on all topics discussed. DC with all belongings via WC. CRIS ROLON RN 12/18/2020 15:22 * Plan of Care - Vinayak De Anda RN - 12/18/2020 0218 EST Data: Pt s/p cystoscopy, left ureteroscopy and left ureteral double J stent removal, voiding tea colored urine, reports burning sensation when passing urine, independent, ambulatory, SL. Action: Meds given as ordered, assessed, promoted rest, clustered care, provided with relaxation exercises as pt had episodes of bad cramps to RLE. Response: Pt tearful when she was having constant bad cramps to RLE. VINAYAK DE ANDA RN 12/18/2020 2:18 * Plan of Care - Arnaud Linn RN - 12/17/2020 2243 EST Data: Pt arrived to [facility] [id number] from PACU s/p cystoscopy and L ureteroscopy and stent removal. Pt endorsing moderate pain upon arrival to floor. Pt able to get OOB independently to chair and BR. Pt DTV at 2019. Pt on RA while awake. Action: Pt oriented to room and unit. VS recorded, full assessment completed. Pt medicated as ordered including with oxycodone 5 mg; see MAR. Urine output measured. 2L O2 via NC applied to pt at HS. Hourly checks completed. Response: Pt is voiding without difficulty; urine is tea-colored. VSS. Currently resting in bed, call light in reach. Will continue to monitor. ARNAUD LINN RN 12/17/2020 22:43 * Brief Op Note - Jake Lockhart MD - 12/17/2020 1412 EST BRIEF OP NOTE Surgeon: Hardik Vargas DO Management Associate: Jake Lockhart MD Pre-op diagnosis: Left ureteral stone Post-op diagnosis: Couldn't find any stones Procedure: Cystoscopy, left ureteroscopy and left ureteral double J stent removal Anesth: General Findings: No stones identified, healthy ureter EBL: minimal IVF: per anesthesia UOP: Urine not measured during case Specimen: None Cultures: None Foreign Material Retained: None Complications: None Dispo: PACU in Good condition, then admission to the floor. Jake Lockhart MD 14:12 * PAT Note - Kimberley Liu APRN CNM - 12/10/2020 1452 EST Pt has pancytopenia with associated Liver cirrhosis and portal hypertension with hypersplenism. Forlast surgery pt received Lustrombopaq prior to DOS. There was a question about a hematology plan for this current surgery. Dr Paige has communicated with Dr Jacobson per Hematology RN. does not think that pt requires platelets at this time. Current platelets 12/04/2020 were 65. KIMBERLEY LIU APRN documented in this encounter Plan of Treatment Upcoming Encounters Date Type Department Care Team (Late st Contact Info) Description 01/04/2025 13:00 EST Office Visit [facility] Ophthalmology - [address] [phone] Gagandeep Rome MD [address] [place] [address], [facility] [address] [place] [address] 02/11/2025 13:30 EDT Telemedicine [facility] Hematology & Oncology - [address] [phone] Dana Padilla MD [address] [place] [address], [address] [place] [phone] documented as of this encounter Procedures Procedure Name Priority Date/Time Associated Diagnosis Comments CREATININE STAT Add-on 12/18/2020 12:04 EST ELECTROLYTES Routine 12/18/2020 12:04 EST COMPLETE BLOOD COUNT Routine 12/18/2020 4:28 EST BUN Routine 12/18/2020 4:28 EST GLUCOSE, SERUM Routine 12/18/2020 4:28 EST CREATININE Routine 12/18/2020 4:28 EST ELECTROLYTES Routine 12/18/2020 4:28 EST FL C-ARM RETROGRADE Routine 12/17/2020 1 4:01 EST CYSTOURETEROSCOPY, WITH LITHOTRIPSY, AND URETERAL STENT INSERTION 12/17/2020 12:43 EST Left ureteral stone Special Needs 120W documented in this encounter Results * (ABNORMAL) CREATININE (12/18/2020 12:04 EST) Creatinine 1.64(H) 0.52 - 1.04 mg/dL 12/18/2020 14:03 [facility] eGFR 34(L) >60 mL/min/1.7 3m2 12/18/2020 14:03 [facility] Comment:eGFR calculated lobito coppola CKD-EPI equation for non- Americans. Multiply eGFR by 1.16 for patients. Blood VENOUS BLOOD / Unknown Venipuncture / Unknown 12/18/2020 12:04 EST 12/18/2020 12:27 EST Terra Chiu PA-C CHEMISTRY & BLOOD GAS O RDERABLES Final Result [facility] [address] [place] [address] * (ABNORMAL) ELECTROLYTES (12/18/2020 12:04 EST) Sodium 133(L) 136 - 145 mEq/L 12/18/2020 12:54 [facility] Potassium 5.3(H) 3.5 - 5.0 mEq/L 12/18/2020 12:54 [facility] Chloride 94(L) 96 - 110 mEq/L 12/18/2020 12:54 [facility] CO2 Total 26 22 - 32 mEq/L 12/18/2020 12:54 EST [facility] Blood VENOUS BLOOD / Unknown Venipuncture / Unknown 12/18/2020 12:04 EST 12/18/2020 12:27 EST Vickey Burns MD CHEMISTRY & BLOOD GAS ORDER YANN Final Result Performing Organization Address City/[facility]/ZIP Co de Phone Number [facility] [address] [place] [address] * (ABNORMAL) GLUCOSE, SERUM (12/18/2020 4:28 EST) Glucose 126(H) 70 - 100 mg/dL 12/18/2020 5:01 EST [facility] Blood VENOUS BLOOD / Unknown Venipuncture / Unknown 12/18/2020 4:28 EST 12/18/2020 4:33 EST Jake Lockhart MD CHEMISTRY & BLOOD GAS ORDERAB LES Final Result Performing Organization Address [facility] Co de Phone Number [facility] [address] [place] [address] * (ABNORMAL) CREATININE (12/18/2020 4:28 EST) Creatinine 1.60(H) 0.52 - 1.04 mg/dL 12/18/2020 5:00 EST [facility] eGFR 35(L) >60 mL/min/1.7 3m2 12/18/2020 5:00 EST [facility] Comment:eGFR calculated lobito g CKD-EPI equation for non- Americans. Multiply eGFR by 1.16 for patients. Blood VENOUS BLOOD / Unknown Venipuncture / Unknown 12/18/2020 4:28 EST 12/18/2020 4:33 EST Jake Lockhart MD CHEMISTRY & BLOOD GAS ORDERAB LES Final Result Performing Organization Address City/[facility]/ZIP Co de Phone Number [facility] [address] [place] [address] * (ABNORMAL) BUN (12/18/2020 4:28 EST) BUN 33(H) 10 - 26 mg/dL 12/18/2020 5:00 EST [facility] Blood VENOUS BLOOD / Unknown Venipuncture / Unknown 12/18/2020 4:28 EST 12/18/2020 4:33 EST Jake Lockhart MD CHEMISTRY & BLOOD GAS ORDERAB LES Final Result Performing Organization Address [facility] de Phone Number [facility] [address] [place] [address] * (ABNORMAL) ELECTROLYTES (12/18/2020 4:28 EST) Sodium 132(L) 136 - 145 mEq/L 12/18/2020 5:00 EST [facility] Potassium 5.6(H) 3.5 - 5.0 mEq/L 12/18/2020 5:00 EST [facility] Chloride 97 96 - 110 mEq/L 12/18/2020 5:00 EST [facility] CO2 Total 25 22 - 32 mEq/L 12/18/2020 5:00 EST [facility] Blood VENOUS BLOOD / Unknown Venipuncture / Unknown 12/18/2020 4:28 EST 12/18/2020 4:33 EST Jake Lockhart MD CHEMISTRY & BLOOD GAS ORDERAB LES Final Result Performing Organization Address [facility] Co de Phone Number [facility] [address] [place] [address] * (ABNORMAL) COMPLETE BLOOD COUNT (12/18/2020 4:28 EST) WBC 4.31 4.00 - 12.40 K/cmm 12/18/2020 4:44 EST [facility] RBC 3.86 3.86 - 5.04 M/cmm 12/18/2020 4:44 EST [facility] Hemoglobin 11.2(L) 11.6 - 15.2 gm/dL 12/18/2020 4:44 [facility] HCT 33.3(L) 34.9 - 44.4 % 12/18/2020 4:44 [facility] MCV 86 81 - 98 fl 12/18/2020 4:44 [facility] MCH 29.0 26.7 - 33.3 pg 12/18/2020 4:44 [facility] MCHC 33.6 32.1 - 35.9 gm/dL 12/18/2020 4:44 [facility] RDW-CV 14.2 <14.7 % 12/18/2020 4:44 [facility] RDW-SD 44.3 <50.4 fl 12/18/2020 4:44 [facility] PLT 41(L) 141 - 377 K/cmm 12/18/2020 4:44 [facility] MPV 10.1 9.5 - 12.7 fl 12/18/2020 4:44 [facility] Blood VENOUS BLOOD / Unknown Venipuncture / Unknown 12/18/2020 4:28 EST 12/18/2020 4:33 EST Jake Lockhart MD HEMATOLOGY & PF4 ORDERABLES F inal Result [facility] [address] [place] [address] * FL C-ARM RETROGRADE (12/17/2020 14:01 EST) Narrative 12/17/2020 14:05 EST This is a non-reportable exam. us Hardik Vargas DO IMG OTHER IMAGING ORDERABLE S Final Result documented in this encounter Visit Diagnoses Diagnosis Left ureteral stone- Primary Left ureteral stone MUSA (acute kidney injury) ([facility]) Acute kidney failure, unspecified Pain of upper abdomen Abdominal pain, other specified site documented in this encounter Admitting Diagnoses Diagnosis Left ureteral stone documented in this encounter Administered Medications Inactive Administered Medications - up to 3 most recent administrations Medication Order MAR Action Action Date Dose Rate Site budesonide-formoterol HFA (SYMBICORT) 160-4.5 mcg/actuation inhaler 2 Puff 2 Puff, inhalation, DAILY BEFORE BREAKFAST, First dose on Tue12/18/20 at 0700, Until Discontinued, Routine Given 12/18/2020 6:01 EST 2 Puffs docusate sodium (COLACE) capsule 100 mg 100 mg, oral, 2 TIMES DAILY, First dose on Tue12/17/20 at 2100, Until Discontinued, Routine Given 12/18/2020 8:16 EST 100 mg Given 12/17/2020 21:00 EST 100 mg fentaNYL citrate (PF) injection 25 mcg 25 mcg, intravenous, Once (Without Time Specified), 1 dose, Starting on Tue12/17/20 at 1045, Until Tue12/17/20 at 1048, STAT, Preprocedure Given 12/17/2020 10:48 EST 25 mcg fentaNYL citrate (PF) injection 25 mcg 25 mcg, intravenous, ONCE PRN, 1 dose, Starting on Tue12/17/20 at 1109, Until Tue12/17/20 at 1119, Pain, Routine, Preprocedure Given 12/17/2020 11:19 EST 25 mcg furosemide (LASIX) tablet 80 mg 80 mg, oral, DAILY, First dose on Tue12/17/20 at 1715, Until Discontinued, Routine Given 12/18/2020 8:16 EST 80 mg Given 12/17/2020 18:27 EST 80 mg lactated ringers (LR) infusion 30 mL/hr, intravenous, CONTINUOUS, Starting on Tue12/17/20 at 1000, Until Tue12/18/20 at 1723, Routine, Preprocedure Continued by Anesthesia 12/17/2020 13:20 EST New Bag 12/17/2020 10:15 EST 30 mL/hr 30 mL/hr lactated ringers (LR) infusion at 100 mL/hr, intravenous, CONTINUOUS, Starting on Tue12/18/20 at 1415, Until Tue12/18/20 at 1723, Routine levothyroxine (SYNTHROID) tablet 25 mcg 25 mcg, oral, DAILY BEFORE BREAKFAST, First dose on Tue12/18/20 at 0700, Until Discontinued, Routine Given 12/18/2020 6:41 EST 25 mcg ondansetron (PF) (ZOFRAN) injection 4 mg 4 mg, intravenous, Once (Without Time Specified), 1 dose, Starting on Tue12/17/20 at 1045, Until Tue12/17/20 at 1048, STAT, Preprocedure Given 12/17/2020 10:48 EST 4 mg ondansetron (PF) (ZOFRAN) injection 4 mg 4 mg, intravenous, EVERY 4 HOURS PRN, Starting on Tue12/17/20 at 1648, Until Tue12/18/20 at 1723, Nausea, Routine ondansetron (ZOFRAN-ODT) disintegrating tablet 4 mg 4 mg, oral, EVERY 4 HOURS PRN, Starting on Tue12/17/20 at 1648, Until Tue12/18/20 at 1723, Nausea, Routine Given 12/18/2020 10:20 EST 4 mg oxyCODONE (ROXICODONE) immediate release tablet 5 mg 5 mg, oral, 2 TIMES DAILY PRN, Starting on Tue12/17/20 at 1648, Until Tue12/18/20 at 1723, Pain, Routine Given 12/18/2020 10:20 EST 5 mg Given 12/18/2020 3:35 EST 5 mg Given 12/17/2020 21:00 EST 5 mg oxyCODONE (ROXICODONE) immediate release tablet 5-10 mg 5-10 mg, oral, EVERY 30 MINUTES PRN, 2 doses, Starting on Tue12/17/20 at 1404, Until Tue12/17/20 at 1648, Pain, Routine, Recovery (only) Given 12/17/2020 1 6:03 EST 10 mg phenazopyridine (PYRIDIUM) tablet 200 mg 200 mg, oral, 3 TIMES DAILY PRN, 9 doses, Starting on Tue12/17/20 at 1648, Until Kirsten 12/18/20 at 1039, Pain, Routine Given 12/18/2020 1:10 EST 200 mg promethazine (PHENERGAN) suppository 12.5 mg 12.5 mg, rectal, EVERY 6 HOURS PRN, Starting on Tue12/17/20 at 1648, Until Kirsten 12/18/20 at 1723, Nausea, Routine promethazine (PHENERGAN) tablet 12.5 mg 12.5 mg, oral, EVERY 6 HOURS PRN, Starting on Tue12/17/20 at 1648, Until Tue12/18/20 at 1723, Nausea, Routine sertraline (ZOLOFT) tablet 25 mg 25 mg, oral, DAILY, First dose on Tue12/17/20 at 1715, Until Discontinued, Routine Given 12/18/2020 8:16 EST 25 mg Given 12/17/2020 18:27 EST 25 mg sodium chloride 0.9 % (flush) flush 3 mL 3 mL, intravenous, EVERY 8 HOURS, First dose on Tue12/17/20 at 1000, Until Discontinued, Routine, Preprocedure Given 12/17/2020 10:18 EST 3 mL spironolactone (ALDACTONE) tablet 150 mg 150 mg, oral, DAILY BEFORE BREAKFAST, First dose on Tue12/18/20 at 0700, Until Discontinued, Routine Given 12/18/2020 6:00 EST 150 mg TAMSulosin (FLOMAX) capsule 0.4 mg 0.4 mg, oral, AT BEDTIME, First dose on Tue12/17/20 at 2100, Until Discontinued, Routine Given 12/17/2020 21:01 EST 0 .4 mg documented in this encounter Active and Recently Administered Medications Times are shown in EST. Scheduled Medication Order 12/16/2020 12/17/2020 12/18/2020 budesonide-formoterol HFA (SYMBICORT) 160-4.5 mcg/actuation inhaler 2 Puff 2 Puff, inhalation, DAILY BEFORE BREAKFAST, First dose on Tue12/18/20 at 0700, Until Discontinued, Routine 0601 (Given - Provid er: Vinayak De Anda RN) ceFAZolin (ANCEF) syringe 2 g (COMPLETED) 2 g, intravenous, Administer over 10 Minutes, PRE-OP ONCE, 1 dose, On Tue12/17/20 at 1000, Type of Therapy: Prophylaxis, Suspected Indication (Select all that apply): Surgical prophylaxis, Routine, Preprocedure 1319 (Given - Provider: Anthony Armenta CRNA) docusate sodium (COLACE) capsule 100 mg 100 mg, oral, 2 TIMES DAILY, First dose on Tue12/17/20 at 2100, Until Discontinued, Routine 2100 (Given - Provider: Arnaud Linn RN) 0816 (Given - Provider: Cris Rolon) fentaNYL citrate (PF) injection 25 mcg (COMPLETED) 25 mcg, intravenous, Once (Without Time Specified), 1 dose, Starting on Tue12/17/20 at 1045, Until Tue12/17/20 at 1048, STAT, Preprocedure 1048 (Given - Provider: Stacey Tang RN) furosemide (LASIX) tablet 80 mg 80 mg, oral, DAILY, First dose on Tue12/17/20 at 1715, Until Discontinued, Routine 1827 (Given - Provider: Arnaud Linn RN) 0816 (Given - Provider: Cris Rolon) levothyroxine (SYNTHROID) tablet 25 mcg 25 mcg, oral, DAILY BEFORE BREAKFAST, First dose on Tue12/18/20 at 0700, Until Discontinued, Routine 0641 (Given - Provid er: Vinayak De Anda RN) ondansetron (PF) (ZOFRAN) injection 4 mg (COMPLETED) 4 mg, intravenous, Once (Without Time Specified), 1 dose, Starting on Tue12/17/20 at 1045, Until Tue12/17/20 at 1048, STAT, Preprocedure 1048 (Given - Provider: Stacey Tang RN) sertraline (ZOLOFT) tablet 25 mg 25 mg, oral, DAILY, First dose on Tue12/17/20 at 1715, Until Discontinued, Routine 1827 (Given - Provider: Arnaud Linn RN) 0816 (Given - Provider: Cris Rolon) sodium chloride 0.9 % (flush) flush 3 mL (CANCELED) 3 mL, intravenous, EVERY 8 HOURS, First dose on Tue12/17/20 at 1000, Until Discontinued, Routine, Preprocedure 1018 (Given - Provider: Stacey Tang RN) spironolactone (ALDACTONE) tablet 150 mg 150 mg, oral, DAILY BEFORE BREAKFAST, First dose on Tue12/18/20 at 0700, Until Discontinued, Routine 0600 (Given - Provid er: Vinayak De Anda RN - Comment: snacking, says BP runs low 90's SBP even after this med) TAMSulosin (FLOMAX) capsule 0.4 mg 0.4 mg, oral, AT BEDTIME, First dose on Tue12/17/20 at 2100, Until Discontinued, Routine 210 (Given - Provider: Arnaud Linn RN) Continuous Medication Order 12/16/2020 12/17/2020 12/18/2020 lactated ringers (LR) infusion 30 mL/hr, intravenous, CONTINUOUS, Starting on Tue12/17/20 at 1000, Until Kirsten 12/18/20 at 1723, Routine, Preprocedure 1015 (New Bag - Provider: Stacey Tang RN)1320 (Continued by Anesthesia - Provider: Anthony Armenta CRNA)1427 (Anesthesia Volume Adjustment - Provider: Anthony Armenta CRNA) lactated ringers (LR) infusion at 100 mL/hr, intravenous, CONTINUOUS, Starting on Tue12/18/20 at 1415, Until Kirsten 12/18/20 at 1723, Routine 1415 (Canceled Entry - Provider: Jesus Job User Admin - Comment: Automatically canceled at discontinue of medication order) PRN Medication Order 12/16/2020 12/17/2020 12/18/2020 albuterol (ACCUNEB) nebulizer solution 2.5 mg 2.5 mg, nebulization, EVERY 6 HOURS PRN, Starting on Tue12/17/20 at 1648, Until Kirsten 12/18/20 at 1723, Wheezing, Routine albuterol inhaler 180 mcg 180 mcg (2 Puff), inhalation, EVERY 4 HOURS PRN, Starting on Tue12/17/20 at 1648, Until Kirsten 12/18/20 at 1723, Wheezing, Shortness of Breath, Routine bisacodyL (DULCOLAX) suppository 10 mg 10 mg, rectal, DAILY PRN, Starting on Tue12/17/20 at 1648, Until Kirsten 12/18/20 at 1723, Constipation, Routine fentaNYL citrate (PF) injection 25 mcg (COMPLETED) 25 mcg, intravenous, ONCE PRN, 1 dose, Starting on Tue12/17/20 at 1109, Until Tue12/17/20 at 1119, Pain, Routine, Preprocedure 1119 (Given - Provider: Stacey Tang RN) ondansetron (PF) (ZOFRAN) injection 4 mg(Linked Group 1) 4 mg, intravenous, EVERY 4 HOURS PRN, Starting on Tue12/17/20 at 1648, Until Tue12/18/20 at 1723, Nausea, Routine 1020 (See Alternativ e - Provider: Cris Rolon) ondansetron (ZOFRAN-ODT) disintegrating tablet 4 mg(Linked Group 1) 4 mg, oral, EVERY 4 HOURS PRN, Starting on Tue12/17/20 at 1648, Until Kirsten 12/18/20 at 1723, Nausea, Routine 1020 (Given - Provid er: Cris Rolon) oxyCODONE (ROXICODONE) immediate release tablet 5 mg 5 mg, oral, 2 TIMES DAILY PRN, Starting on Tue12/17/20 at 1648, Until Tue12/18/20 at 1723, Pain, Routine 2100 (Given - Provider: Arnaud Linn, KENN) 0335 (Given - Provider: Vinayak De Anda, KENN)1020 (Given - Provider: Cris Rolon) oxyCODONE (ROXICODONE) immediate release tablet 5-10 mg (CANCELED) 5-10 mg, oral, EVERY 30 MINUTES PRN, 2 doses, Starting on Tue12/17/20 at 1404, Until Tue12/17/20 at 1648, Pain, Routine, Recovery (only) 1603 (Given - Provider: Caron Haq RN) phenazopyridine (PYRIDIUM) tablet 200 mg (CANCELED) 200 mg, oral, 3 TIMES DAILY PRN, 9 doses, Starting on Tue12/17/20 at 1648, Until Tue12/18/20 at 1039, Pain, Routine 0110 (Given - Provid er: Vinayak De Anda RN) promethazine (PHENERGAN) suppository 12.5 mg(Linked Group 2) 12.5 mg, rectal, EVERY 6 HOURS PRN, Starting on Tue12/17/20 at 1648, Until Tue12/18/20 at 1723, Nausea, Routine promethazine (PHENERGAN) tablet 12.5 mg(Linked Group 2) 12.5 mg, oral, EVERY 6 HOURS PRN, Starting on Tue12/17/20 at 1648, Until Tue12/18/20 at 1723, Nausea, Routine sodium chloride 0.9 % irrigation (CANCELED) As needed, Starting on Tue12/17/20 at 1351, Until Tue12/17/20 at 1352, Routine, Intraprocedure 1351 (Given - Provider: Hardik Vargas DO) Linked Groups Order Group 1: ondansetron (PF) (ZOFRAN) injection 4 mgJump to med 4 mg, intravenous, EVERY 4 HOURS PRN, Starting on Tue12/17/20 at 1648, Until Kirsten 12/18/20 at 1723, Nausea, Routine Or ondansetron (ZOFRAN-ODT) disintegrating tablet 4 mgJump to med 4 mg, oral, EVERY 4 HOURS PRN, Starting on Tue12/17/20 at 1648, Until Tue12/18/20 at 1723, Nausea, Routine Group 2: promethazine (PHENERGAN) tablet 12.5 mgJump to med 12.5 mg, oral, EVERY 6 HOURS PRN, Starting on Tue12/17/20 at 1648, Until Tue12/18/20 at 1723, Nausea, Routine Or promethazine (PHENERGAN) suppository 12.5 mgJump to med 12.5 mg, rectal, EVERY 6 HOURS PRN, Starting on Tue12/17/20 at 1648, Until Tue12/18/20 at 1723, Nausea, Routine documented in this encounter Orders Medications Ordered That Luc ht Not Have Been Administered Count Last Ordered Date First Ordered Date lactated ringers (LR) infusion 2 12/18/2020 12/17/2020 acetaminophen (TYLENOL) solu tion unit dose cup 995 mg 1 12/17/2020 acetaminophen (TYLENOL) tablet 1,000 mg 1 0 12/17/2020 albuterol (ACCUNEB) nebulize r solution 2.5 mg 1 12/17/2020 albuterol inhaler 180 mcg 1 12/17/2020 atropine 0.1 mg/mL syringe 0.5 mg 1 021 bisacodyL (DULCOLAX) suppository 10 mg 1 ceFAZolin (ANCEF) syringe 2 g 1 12/17/2020 fentaNYL citrate (PF) injection 25-50 mcg 1 12/17/2020 HYDROmorphone (PF) (DILAUDID ) 0.5 mg/0.5 mL syringe 0.3-0.5 mg 1 12/17/2020 lidocaine (PF) 10 mg/mL (1 % ) injection 2 mg 1 12/17/2020 naloxone (NARCAN) injection 0.2 mg 1 2020 ondansetron (PF) (ZOFRAN) injection 4 mg 2 12/17/2020 promethazine (PHENERGAN) sup pository 12.5 mg 1 12/17/2020 promethazine (PHENERGAN) tablet 12.5 mg 1 0 12/17/2020 sodium chloride 0.9 % irrigation 1 12/17/19 21 Lab Orders Without Results Count Last Ordered D ate First Ordered Date CREATININE 1 12/18/2020 ELECTROLYTES 1 12/18/2020 Nursing Count Last Ordered Date First Orde red Date CONTRAINDICATION TO ANTICOAG ULATION THERAPY 1 12/17/2020 INSERT PERIPHERAL IV 1 12/17/2020 Admission Count Last Ordered Date First Orde red Date INITIATE OBSERVATION STATUS 1 12/18/2020 Discharge Count Last Ordered Date First Orde red Date DISCHARGE PATIENT 1 12/18/2020 documented in this encounter Care Teams Insurance Office Supervisor Relationship Specialty Start Date End Date Emigdio Veronica MD [address] [place] [phone] PCP - General Internal Medicine - Primary Care 05/22/20 02/21/24 documented as of this encounter
--- OUTSIDE RECORDS SUMMARY | 2024-11-22 17:18 | XMS_ITS | Encounter Summary ---
Author Organization [facility] Address [address] [place] [address] Care Team Providers Care [employer] Team Member Name Role Phone Emigdio Veronica MD Primary Care Provider + Reason for Visit * Reason Onset Date Comments Appointment Related 12/16/2020 Encounter Details Date Type Department Care Team (Late st Contact Info) Description 12/16/2020 Telephone [facility] Surgical Oncology - [place] [address] [place] [address] Starr Paige MD [address] [place] [phone] Appointment Related Social History Tobacco Use [...] 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 Please call patient to reschedule their appointment. documented in this encounter Plan of Treatment Upcoming Encounters Date Type Department Care Team (Late st Contact Info) Description 01/04/2025 13:00 EST Office Visit [facility] Ophthalmology - [address] [id number] Gagandeep Rome MD [address] [place] [address], [facility] [address] [place] [phone] 02/11/2025 13:30 EDT Telemedicine [facility] Hematology & Oncology - [address] [id number] Dana Padilla MD [address] [place] [address], [facility] [address] [place] [phone] documented as of this encounter Visit Diagnoses Not on filedocumented in this encounter Care Teams [employer] Team Member Relationship Specialty Start Date End Date Emigdio Veronica MD [address] [place] [phone] PCP - General Internal Medicine - Primary Care 05/22/20 02/21/24 documented as of this encounter
--- OUTSIDE RECORDS SUMMARY | 2024-11-22 17:18 | XMS_ITS | Encounter Summary ---
Author Organization [facility] Address [address] [place] [address] Care Team Providers Care Felt Hanger Name Role Phone Emigdio Veronica MD Primary Care Provider + Reason for Visit * Reason Comments Telemedicine Phone Call pt is in quarant ine Cirrhosis follow up Medications Refill mag ox Nephrolithiasis stent issues, 2nd mccoy rgery on 12/17, blood transfusions scheduled Encounter Details Date Type Department Care Team (Latest Contact Info) Description 12/15/2020 13:15 EST Telemedicine [facility] - [place] [address] [place] [address] Emigdio Veronica MD [address] [place] [phone] Left nephrolithiasis (Primary Dx); Other cirrhosis of liver (HCC-[facility]) Social History Tobacco Use Types Packs/Day [...] Job Start Date Job End Date [employer] Not on file Not on file Not o n file COVID-19 Exposure Response Date Recorded In the last month, have you been in contact with someone who was confirmed or suspected to have Coronavirus / COVID-19? No / Unsure 12/09/2020 12:24 EST documented as of this encounter Last Filed Vital Signs Vital Sign Reading Time Taken Comments Blood Pressure - - Pulse - - Temperature - - Respiratory Rate - - Oxygen Saturation - - Inhaled Oxygen Concentration - - Weight 90.7 kg (200 lb) 12/15/2020 1046 EST per pt Height - - Body Mass Index 34.33 12/10/2020 0912 EST documented in this encounter Functional Status [...] Adria Hernandez RN documented in this encounter Ordered Prescriptions Prescription Sig Dispense Quantity Refills Last Filled Start Date End Date TAMSulosin (FLOMAX) 0.4 mg capsule Take 1 Cap by mouth at bedtime. 90 Cap 3 12/15/2020 1 hydrOXYzine (ATARAX) 25 mg tablet TAKE 1 TABLET BY MOUTH AT BEDTIME NEEDED 90 Tab 3 12/15/2020 1 magnesium oxide (MAG-OX) 400 mg (241.3 mg magnesium) tablet Take 1 Tab by mouth daily. 200 Tab 3 12/15/2020 1 documented in this encounter Progress Notes * Emigdio eVronica MD - 12/15/2020 1315 EST TELEMEDICINE PHONE VISIT The concept [...] mental health care. The patient confirms ongoing left flank pain The following staff and their role [...] inhaler ??? TAMSulosin (FLOMAX) 0.4 mg capsule No current facility-administered medications for this visit. Facility-Administered Medications Ordered in Other Visits Medication Route Frequency ??? albuterol (ACCUNEB) 2.5 mg /3 mL (0.083 %) nebulizer solution S: Tara Yun is a 60 y.o. female with PMHx of who presents with a CC: of nephrolithiasis follow-up Today Tara presents for a telemedicine phone visit to check. Regarding her nephrolithiasis and QUIROZ liver cirrhosis. She reports that she underwent one attempt at lithotripsy on 12/03/2020, but unfortunately urology was unable to remove the stone at that time. She was given a ureter stent and is scheduled for a repeat attempt at lithotripsy this Tuesday. Se notes she has had some worsening pain with the ureter stent and had to have it replaced this past week. She is noting some increased pian control however with the combination of oxycodone 5 mg BID and with pyridium that was prescribed by her urologist. She is looking forward to getting her kidney stone addressed soon. She notes she is presenting to [facility] lab today to monitor her platelet counts before her surgery this Tuesday. She has been told byher automobile designer that it is unlikely that she will require a platelet transfusion. She notes compliance with both lasix and spirolactone and states that her weights and edema have been stable lately. Despite normal electrolytes appreciated on her last BMP in 12/04/20 she is reporting intermittent lower extremity muscle spasms that she has found is relieved when she routinely takes magnesium oxide at 400 mg daily. She is looking for a refill of her magnesium supplement. She confirms she is scheduled to establish care with hepatology early next month. ROS as above O: Wt 90.7 kg (200 lb) Comment: per pt BMI 34.33 kg/m?? Recent Labs/Imaging: Reviewed in Epic A and P: Tara was seen today for telemedicine phone call, cirrhosis, medications refill and nephrolithiasis. Diagnoses and all orders for this visit: Left nephrolithiasis: Following with urology. - Lithotripsy as scheduled on 12/17 - Continue oxycodone 5 mg BID PRN for now for pain control - Continue pyridium PRN Other cirrhosis of liver (HCC-[facility]) - Continue lasix and spirolactone as prescribed - Establish care with hepatology as scheduled F/u: Return in about 3 months (around 03/15/2021), or if symptoms worsen or fail to improve, for Telemedicine. I spent a total of 15 minutes over the phone with this patient today and 12 minutes of that time was spent on education and counseling for nephrolithiasis, cirrhosis of the liver Emigdio Veronica MD 12/15/2020 15:17 documented in this encounter Plan of Treatment Upcoming Encounters Date Type Department Care Team (Late st Contact Info) Description 01/04/2025 13:00 EST Office Visit [facility] Ophthalmology - [address] [id number] Gagandeep Rome MD [address] [facility], [facility] [address] [place] [id number] 02/11/2025 13:30 EDT Telemedicine [facility] Hematology [facility] Oncology - [address] [id number] Dana Padilla MD [address] [facility], [address] [place] [phone] documented as of this encounter Visit Diagnoses Diagnosis Left nephrolithiasis- Primary Other cirrhosis of liver (HCC-[facility]) documented in this encounter Discontinued Medications Medication Sig Discontinue Reason Start Date End Da te magnesium oxide (MAG-OX) 400 mg (241.3 mg magnesium) tablet Take 1 Tab by mouth daily. Reorder 09/05/2020 12/15/2020 hydrOXYzine (ATARAX) 25 mg tablet TAKE 1 TABLET BY MOUTH AT BEDTIME NEEDED Reorder 11/17/2020 12/15/2020 documented as of this encounter Historical Medications * This list may reflect changes made after this encounter. hydrOXYzine (ATARAX) 25 mg tablet TAKE 1 TABLET BY MOUTH AT BEDTIME NEEDED 11/17/2020 12/15/2020 predniSONE (DELTASONE) 20 mg tablet TAKE 3 TABLETS BY MOUTH ONCE DAILY FOR 4 DAYS, START TOMORROW (11/18) 11/17/2020 03/19/2021 sertraline (ZOLOFT) 25 mg tablet Take 25 mg by mouth daily. 10/10/2020 03/06/2021 added in this encounter Care Teams Felt Hanger Relationship Specialty Start Date End Date Emigdio Veronica MD [address] [place] [id number] PCP - General Internal Medicine - Primary Care 05/22/20 02/21/24 documented as of this encounter
--- OUTSIDE RECORDS SUMMARY | 2024-11-22 17:18 | XMS_ITS | Encounter Summary ---
Author Organization [facility] Address [address] [place] [address] Care Team Providers Care Lugger Name Role Phone Emigdio Veronica MD Primary Care Provider + Reason for Visit * Auth/Cert Specialty Diagnoses / Procedures Referred By Serene huitron Referred To Contact Diagnoses Left ureteral stone Procedures MS CYSTO/URETERO W/LITHOTRIPSY &INDWELL STENT INSRT CYSTOURETHROSCOPY, WITH LEFT URETEROSCOPY AND LITHOTRIPSY possible left retrograde pyelogram Referral ID Status Reason Start Date Expiration Date Visits Re quested Visits Authorized [id number] 1 1 Encounter Details Date Type Department Care Team (Late st Contact Info) Description 12/17/2020 11:35 EST - 12/17/2020 13:45 EST Surgery [facility] OR [address] [place] [address] Hardik Vargas, [address] [facility], Level 5 [place] [address] CYSTOSCOPY, WITH LEFT URETEROSCOPY ,removal of double J stent [94955 (CPT??)] Surgery Details Date/Time Status Location OR Service Patient Class Case Cl ass Case Type Trauma Case? 12/17/2020 1135 Posted [facility] OR [facility] Urology 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 No / Unsure 12/17/2020 8:34 EST documented as of this encounter Last Filed Vital Signs Vital Sign Reading Time Taken Comments Blood Pressure 116/67 12/17/2020 0858 EST Pulse - - Temperature 35.8 ??C (96.4 ??F) 12/17/2020 0858 EST Respiratory Rate 17 12/17/2020 0858 EST Oxygen Saturation 93% 12/17/2020 1228 EST Inhaled Oxygen Concentration - - Weight 95.1 kg (209 lb 10.5 oz) 12/17/2020 0858 EST Height 162.6 cm (5' 4) 12/17/2020 0858 EST Body Mass Index 35.99 12/17/2020 1700 [...] having left flank pain back in December 03.?? Had aurine culture that was done that [...] New Patient Liver with Micheal Moseley MD [facility] Gastroenterology - [facility] (--) [address] [phone] Dec 31, 2020 10:30 Telemedicine Visit 15 Mins with Starr Paige MD [facility] [place] Hematology & Oncology - [facility] ([facility]) [address] [place] [id number] Jan 19, 2021 15:30 Ultrasound with Ultrasound Urology [facility] Urology [facility] (--) [address] [facility] [address] Jan 19, 2021 16:00 Office Visit with Lon Ortez MD [facility] Urology [facility] (--) [address] [facility] [address] Mar 13, 2021 9:30 Telemedicine Visit 15 Mins with Starr Paige MD [facility] Cancer Center Hematology & Oncology - [facility] ([facility]) [address] [facility] [address] Mar 19, 2021 8:45 Telemedicine Visit with Emigdio Veronica MD [facility] Adult Primary Care - [place] ([facility]) [address] [facility] [address] Terra Chiu PA-C 12/22/2020 12:00 Cosigned by [...] 12/31/2020 10:30 Starr Paige MD EP2 Hem/Onc [facility] 01/19/2021 15:30 Urology, Ultrasound EP5 Uro None 01/19/2021 16:00 Lon Ortez MD EP5 Uro None 03/13/2021 9:30 Starr Paige MD EP2 Hem/Onc [facility] 03/19/2021 8:45 Emigdio Veronica MD [facility] Follow-up Services Contacted at Discharge: Attending [...] 90 Tab 3 11/03/2020 1 LUSUTROMBOPAG ORALIndications: Tuber Helper prescribed -- 7 day course prior to [...] with asthma ([facility]) Inhale 2 Puffs as directed daily. 1 Inhaler 11 06/20/2020 1 TAMSulosin (FLOMAX) 0.4 mg capsule Take 1 Cap by mouth at bedtime. 90 Cap 3 12/15/2020 1 documented as of this encounter Discharge Disposition Disposition Code Departure Means Destination Home or Self Assisted documented in this encounter Progress Notes * Mere Richard LICSW - 12/18/2020 1117 EST Initial Case Management/Social Work Assessment and Discharge Plan/Readmission Risk Assessment ?? REASON FOR ADMISSION: Left uretal stone Patient understands reason for admission: Yes ?? PATIENT CONTACT INFO VERIFIED: Yes PATIENT ADDRESS VERIFIED: Yes Type of housing (single family, condo, apartment, usp, single room occupancy, [employer] funded hotel room, group residential) - Single family Who does the patient live with? Irving Does the patient have access to their own bedroom/bathroom/kitchen - or is it shared with others? Shared with ficlarisse Name of housing complex (ex [facility], [facility], etc)- n/a Housing Authority/Managing Organization - n/a Community Care Providers (human services case manager, [facility] nurse, etc) name and contact information- n/a ?? LIVING ARRANGEMENTS AND ACCESSIBILITY ISSUES: Living Arrangements: Private residence, Spouse / significant other Levels: 1 Stairs to enter: 2 Handicap access: None Bathroom located on bedroom level?: Yes ?? What in home social supports are available to the patient? Spouse / significant other Is 13/06 care available? Yes ?? ADVANCED DIRECTIVES, POA &/or COLST IN PLACE: Healthcare Directive: No, patient does not have advance directive for healthcare treatment Information Provided on Healthcare Directives: No Information on Healthcare Directives Requested: No DIRECTIVES FOR FINANCES: Directive For Finances: No ?? TRANSPORTATION: Transportation: Family ?? CULTURAL, CHURCH and/or LANGUAGE factors affecting health care/discharge planning: [...] device: None Community Services: Home health, MOW, [facility]-none of one time a week Will you [...] Home Health Services: None DME Provider: Pharmacy: [facility]/pharmacy #[id number] - [place], [place] - [address] [place] [address] ?? [facility] - [place], [place] - [address] [facility] [address] [facility] [address] ?? [id number] - [place], [place] - [address] [facility] [facility] [address] [facility], [facility] [address] [facility] [address] ?? Home Health: Other: ?? POST HOSPITAL TRANSITION PLAN: Tara Yun is 60 y/o female who was admitted to [facility] for left uretal stone. ?? Tara resides with her ficlarisse in a single story home with 2 stairs to enter. She is independent with ADLs and ambulatory without assistance at baseline. She did not have any services prior to admission. ?? Sukhjinder reyes works here at [facility] and will be able to drive her home when discharged. She has been enrolled in meds to beds. She has no new skilled needs for discharge. Per team, she will dischargetoday v tomorrow. Pt is hoping to stay an extra night since she has had so many recent admissions. No further CM needs at this time. ?? PAM Melchor, ERASMO Ext [phone] Pager #[phone] * Vickey Burns MD - 12/18/2020 0629 [...] Including Current In: 1480 [P.O.:480; I.V.:1000] Out: 2129 [Urine:2129] Exam: Gen: NAD CV: Non cyanotic Resp: non labored Abdominal: Soft, non-distended Back: mild left CVA tenderness : Camacho draining Sediment urine Urine Assessment Void Prior to Procedure: 0900 Urinary Status: Continent, Voiding Urine Color: Maite Urine Appearance: Sediment Urine Odor: Malodorous Extremities: WWP Neuro: alert and oriented x3, no gross motor or sensory deficits MSK: nl ROM CBC Recent Labs 12/18/20 0428 WBC 4.31 RBC 3.86 HGB 11.2* HCT 33.3* MCV 86 MCHC 33.6 PLT 41* BMP Recent Labs 12/18/20 0428 CREATININE 1.60* BUN 33* NA 132* K [...] MD 12/18/2020 6:30 Weekdays from 7AM-5PM page [phone] with questions. Cosigned by Hardik Vargas DO at 12/18/2020 11:19 EST * Poonam Jauregui RT - 12/17/2020 1733 EST Respiratory Consult/Progress Note Indications for Respiratory [...] IR ??? Abx: 24 hours anceff ??? 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 Diet: reg ??? Activity as tolerated ??? Encourage IS ??? Anticoagulation: none Dispo Planning ??? ELEAZAR: today ??? Follow up: left ureteroscopy with laser lithotripsy, TBD Future Appointments Date Time Provider Department Center 12/10/2020 9:10 [facility] PAT CALL ROOM 4 [facility] None 12/15/2020 13:15 Emigdio Veronica MD [facility] 12/17/2020 9:30 Starr Paige MD EP2 Hem/Onc [facility] 12/29/2020 10:00 Micheal Moseley MD [facility] None 12/29/2020 14:30 Emigdio Veronica MD [facility] 03/13/2021 9:30 Starr Paige MD EP2 Hem/Onc [facility] FELICE GIVENS MD 12/04/2020 6:09 Weekdays from 7AM-5PM page [phone] with questions. For weekends and all other times, please page through PAS Cosigned by Lon Ortez MD at 12/04/2020 8:46 EST documented in this encounter Nursing Notes * Stacey Tang, KENN - 12/17/2020 1034 EST Preop Covid DOS [...] SERVICE DATE: 12/17/2020 SURGEON: Hardik Vargas MD PATTERN REPAIR PERSON: Jake Lockhart MD PREOPERATIVE DIAGNOSIS: Left ureteral [...] / Jake Lockhart MD / CD Confirmation: [id number] Dictation ID: [id number] Attending attestation: I was present during the entire procedure. I saw and examined the patient 12/17/2020. I agree with the findings and plan of care documented in the resident's/fellow's note. Hardik Vargas DO 12/17/2020 16:04 documented in this encounter Miscellaneous Notes * Plan of Care - Erika Rolonnifer - 12/18/2020 1523 EST Problem: Daily Care [...] BRIEF OP NOTE Surgeon: Hardik Vargas DO Infection Control Rn: Jake Lockhart MD Pre-op diagnosis: Left ureteral [...] EST Office Visit [facility] Ophthalmology - [address] [phone] Gagandeep Rome MD [address] [place] [address], [facility] 5 [place] [address] 02/11/2025 13:30 EDT Telemedicine [facility] Hematology & Oncology - [address] [address] Dana Padilla MD [address] [place] [address], Level [address] [place] [address] documented as of this encounter [...] 1.64(H) 0.52 - 1.04 mg/dL 12/18/2020 14:03 EST [facility] eGFR 34(L) >60 mL/min/1.7 3m2 12/18/2020 14:03 EST [facility] Comment:eGFR calculated lobito g CKD-EPI equation for non- Americans. Multiply eGFR by 1.16 for patients. Blood VENOUS BLOOD / Unknown Venipuncture / Unknown 12/18/2020 12:04 EST 12/18/2020 12:27 EST Terra Chiu PA-C CHEMISTRY & BLOOD GAS O RDERABLES Final Result [facility] [address] [place] [address] * (ABNORMAL) ELECTROLYTES (12/18/2020 12:04 EST) Sodium 133(L) 136 - 145 mEq/L 12/18/2020 12:54 [facility] Potassium 5.3(H) 3.5 - 5.0 mEq/L 12/18/2020 12:54 [facility] Chloride 94(L) 96 - 110 mEq/L 12/18/2020 12:54 [facility] CO2 Total 26 22 - 32 mEq/L 12/18/2020 12:54 [facility] Blood VENOUS BLOOD / Unknown Venipuncture / Unknown 12/18/2020 12:04 EST 12/18/2020 12:27 EST Vickey Burns MD CHEMISTRY & BLOOD GAS ORDER YANN Final Result Performing Organization Address [facility] Co de Phone Number [facility] [address] [place] [address] * (ABNORMAL) GLUCOSE, SERUM (12/18/2020 4:28 EST) Glucose 126(H) 70 - 100 mg/dL 12/18/2020 5:01 [facility] Blood VENOUS BLOOD / Unknown Venipuncture / Unknown 12/18/2020 4:28 EST 12/18/2020 4:33 EST Jake Lockhart MD CHEMISTRY & BLOOD GAS ORDERAB LES Final Result Performing Organization Address City/[facility]/ZIP Co de Phone Number [facility] [address] [place] [address] * (ABNORMAL) CREATININE (12/18/2020 4:28 EST) Creatinine 1.60(H) 0.52 - 1.04 mg/dL 12/18/2020 5:00 [facility] eGFR 35(L) >60 mL/min/1.7 3m2 12/18/2020 5:00 [facility] Comment:eGFR calculated lobito coppola CKD-EPI equation for non- Americans. Multiply eGFR by 1.16 for patients. Blood VENOUS BLOOD / Unknown Venipuncture / Unknown 12/18/2020 4:28 EST 12/18/2020 4:33 EST Jake Lockhart MD CHEMISTRY & BLOOD GAS ORDERAB LES Final Result Performing Organization Address City/[facility]/ZIP Co de Phone Number [facility] [address] [place] [address] * (ABNORMAL) BUN (12/18/2020 4:28 EST) BUN 33(H) 10 - 26 mg/dL 12/18/2020 5:00 EST [facility] Blood VENOUS BLOOD / Unknown Venipuncture / Unknown 12/18/2020 4:28 EST 12/18/2020 4:33 EST Jake Lockhart MD CHEMISTRY & BLOOD GAS ORDERAB LES Final Result Performing Organization Address [facility] Co de Phone Number [facility] [address] [place] [address] * (ABNORMAL) ELECTROLYTES (12/18/2020 4:28 EST) Sodium 132(L) 136 - 145 mEq/L 12/18/2020 5:00 EST [facility] Potassium 5.6(H) 3.5 - 5.0 mEq/L 12/18/2020 5:00 EST [facility] Chloride 97 96 - 110 mEq/L 12/18/2020 5:00 EST [facility] CO2 Total 25 22 - 32 mEq/L 12/18/2020 5:00 EST [facility] Blood VENOUS BLOOD / Unknown Venipuncture / Unknown 12/18/2020 4:28 EST 12/18/2020 4:33 EST Jake Lockhart MD CHEMISTRY & BLOOD GAS ORDERAB LES Final Result Performing Organization Address City/[facility]/ZIP Co de Phone Number [facility] [address] [place] [address] * (ABNORMAL) COMPLETE BLOOD COUNT (12/18/2020 4:28 EST) WBC 4.31 4.00 - 12.40 K/cmm 12/18/2020 4:44 [facility] RBC 3.86 3.86 - 5.04 M/cmm 12/18/2020 4:44 [facility] Hemoglobin 11.2(L) 11.6 - 15.2 gm/dL 12/18/2020 4:44 [facility] HCT 33.3(L) 34.9 - 44.4 % 12/18/2020 4:44 [facility] MCV 86 81 - 98 fl 12/18/2020 4:44 [facility] MCH 29.0 26.7 - 33.3 pg 12/18/2020 4:44 [facility] MCHC 33.6 32.1 - 35.9 gm/dL 12/18/2020 4:44 [facility] RDW-CV 14.2 <14.7 % 12/18/2020 4:44 [facility] RDW-SD 44.3 <50.4 fl 12/18/2020 4:44 [facility] PLT 41(L) 141 - 377 K/cmm 12/18/2020 4:44 [facility] MPV 10.1 9.5 - 12.7 fl 12/18/2020 4:44 [facility] Blood VENOUS BLOOD / Unknown Venipuncture / Unknown 12/18/2020 4:28 EST 12/18/2020 4:33 EST us Jake Lockhart MD HEMATOLOGY & PF4 ORDERABLES F inal Result [facility] [address] [place] [address] * FL C-ARM RETROGRADE (12/17/2020 14:01 EST) Narrative 12/17/2020 14:05 EST This is a non-reportable exam. Hardik Vargas DO IMG OTHER IMAGING ORDERABLE S Final Result documented in this encounter Visit Diagnoses Diagnosis Left ureteral stone- Primary Left ureteral stone MUSA (acute kidney injury) ([facility]) Acute kidney failure, unspecified Pain of upper abdomen Abdominal pain, other specified site Left ureteral stone documented in this encounter Admitting Diagnoses Diagnosis Left ureteral stone documented in this encounter Administered Medications Inactive Administered Medications - up to 3 most recent administrations Medication Order MAR Action Action Date Dose Rate Site budesonide-formoterol HFA (SYMBICORT) 160-4.5 mcg/actuation inhaler 2 Puff 2 Puff, inhalation, DAILY BEFORE BREAKFAST, First dose on Kirsten 12/18/20 at 0700, Until Discontinued, Routine Given 12/18/2020 [...] Until Kirsten 12/18/20 at 1723, Routine, Preprocedure Continued by Anesthesia [...] 1648, Until Tue12/18/20 at 1039, Pain, Routine Given 12/18/2020 1:10 [...] Preprocedure Given 12/17/2020 10:18 EST 3 mL sodium chloride 0.9 % irrigation As needed, Starting on Tue12/17/20 at 1351, Until Tue12/17/20 at 1352, Routine, Intraprocedure Given 12/17/2020 13:51 EST 2,000 mL Bladder spironolactone (ALDACTONE) tablet 150 mg 150 mg, oral, DAILY BEFORE BREAKFAST, First dose on Tue12/18/20 at 0700, Until Discontinued, Routine Given 12/18/2020 6:00 EST 150 mg TAMSulosin (FLOMAX) capsule 0.4 mg 0.4 mg, oral, AT BEDTIME, First dose on Tue12/17/20 at 2100, Until Discontinued, Routine Given 12/17/2020 21:01 EST 0.4 mg documented in this encounter Active and [...] Linn RN) 0816 (Given - Provider: Cris Synnott) sodium chloride 0.9 % (flush) flush 3 [...] 1000, Until Tue12/18/20 at 1723, Routine, Preprocedure 1015 (New Bag - Provider: Stacey Tang RN)1320 (Continued by Anesthesia - Provider: Anthony Armenta CRNA)1427 (Anesthesia Volume Adjustment - Provider: Anthony Armenta CRNA) lactated ringers (LR) infusion at 100 mL/hr, intravenous, CONTINUOUS, Starting on Tue12/18/20 at 1415, Until Tue12/18/20 at 1723, Routine 1415 (Canceled Entry - [...] Tue12/17/20 at 1648, Until Tue12/18/20 at 1723, Wheezing, Shortness of Breath, Routine bisacodyL (DULCOLAX) suppository 10 mg 10 mg, rectal, DAILY PRN, Starting on Tue12/17/20 at 1648, Until Tue12/18/20 at 1723, Constipation, Routine fentaNYL citrate (PF) injection 25 mcg (COMPLETED) 25 mcg, intravenous, ONCE PRN, 1 dose, Starting on Tue12/17/20 at 1109, Until Tue12/17/20 at 1119, Pain, Routine, Preprocedure 1119 (Given - Provider: Stacey Tang, KENN) ondansetron (PF) (ZOFRAN) injection 4 mg(Linked Group [...] at 1648, Until Kirsten 12/18/20 at 1723, Pain, Routine 2100 (Given - Provider: Arnaud Linn RN) 0335 (Given - Provider: Vinayak De Anda RN)1020 (Given - Provider: Cris Rolon) oxyCODONE (ROXICODONE) immediate release tablet 5-10 mg (CANCELED) 5-10 mg, oral, EVERY 30 MINUTES PRN, 2 doses, Starting on Tue12/17/20 at 1404, Until Tue12/17/20 at 1648, Pain, Routine, Recovery (only) 1603 (Given - Provider: Caron Haq, KENN) phenazopyridine (PYRIDIUM) tablet 200 mg (CANCELED) 200 [...] Until Kirsten 12/18/20 at 1723, Nausea, Routine sodium chloride 0.9 [...] Until Kirsten 12/18/20 at 1723, Nausea, Routine Group 2: promethazine (PHENERGAN) tablet 12.5 mgJump to med 12.5 mg, oral, EVERY 6 HOURS PRN, Starting on Tue12/17/20 at 1648, Until Kirsten 12/18/20 at 1723, Nausea, Routine Or promethazine (PHENERGAN) [...] atropine 0.1 mg/mL syringe 0.5 mg 1 bisacodyL (DULCOLAX) suppository 10 mg 1 ceFAZolin [...] (PHENERGAN) tablet 12.5 mg 1 0 12/17/2020 Lab Orders Without Results Count Last Ordered [...] 12/18/2020 documented in this encounter Care Teams Lugger Relationship Specialty Start Date End Date Emigdio Veronica MD [address] [place] [address] PCP - General Internal Medicine - Primary Care 05/22/20 02/21/24 documented as of this encounter
--- OUTSIDE RECORDS SUMMARY | 2024-11-22 17:18 | XMS_ITS | Encounter Summary ---
Author Organization [facility] Address [address] [place] [phone] Care Team Providers Care Sander [employer]encils Name Role Phone Emigdio Veronica MD Primary Care Provider + Reason for Visit * Auth/Cert Specialty Diagnoses / Procedures Referred By Serene huitron Referred To Contact Diagnoses Left ureteral stone Procedures NE CYSTO/URETERO W/LITHOTRIPSY &INDWELL STENT INSRT CYSTOURETHROSCOPY, WITH LEFT URETEROSCOPY AND LITHOTRIPSY possible left retrograde pyelogram Referral ID Status Reason Start Date Expiration Date Visits Re quested Visits Authorized [id number] 1 1 Encounter Details Date Type Department Care Team (Late st Contact Info) Description 12/17/2020 12:57 EST Anesthesia Event [facility] OR [address] [place] [phone] Heike Elaine MD [address] [place] [phone] Josh Hale MD [address] [place] [phone] Anesthesia Record Procedure Summary Procedure Name Responsible Anesthesiologist Anesthesia Start Time Anesthesia Stop Time CYSTOSCOPY, WITH LEFT URETEROSCOPY ,removal of double J stent (Left: Ureter) Heike Elaine MD 12/17/20 1257 12/17/20 1427 Events Date Time Event Comment 12/17/2020 1257 An Start The patient was re-evaluated immediately before moderate or deep sedation use, before anesthesia induction, or before the anesthesia procedure. 1259 An Start Data 1308 An Induction The patient was reevaluated immediately before moderate or deep sedation use and before anesthesia induction. 1315 An Intubation 1342 Wilder Nasal trumpet p laced R nare to aid post op airway patency 1403 An Extubation 1414 an stop data 1427 Handoff to RN I completed my handoff to the receiving nurse during which we: 1. Identified the patient 2. Identified the responsible provider 3. Reviewed the pertinent medical history 4. Discussed the surgical course 5. Reviewed intra-op anesthesia management and issues during anesthesia 6. Set expectations for post-procedure period 7. Allowed opportunity for questions and acknowledgement of understanding. 1427 An Stop Meds Name Total dexaMETHasone 4 mg/mL injection 8 mg glycopyrrolate pre-filled syringe 0.2 mg HYDROmorphone vial 2 mg/mL 0.8 mg ketAMINE 5 mL prefilled syringe 40 mg midazolam 1 mg/mL 2 mL vial 2 mg ondansetron (PF) (ZOFRAN) injection 4 mg propOFol (DIPRIVAN) injection 80 mg propofol (DIPRIVAN) 500 mg in 50 mL infu cornel 178,788 mcg sugammadex 100 mg/mL 2 mL vial 200 mg dexmedetomidine injection - vial 20 mcg phenylephrine pre-made bag 20 mg/250 mL 2,290 mcg ceFAZolin (ANCEF) syringe 2 g 2,000 mg albuterol inhaler 6 Puff metoprolol injection 2 mg lactated ringers (LR) infusion 1,000 mL * Agents Name Insp Sevoflurane Exp Sevoflurane O2 N2O Air * Blood No blood administrations on file. 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 Chart and Nursing Notes reviewed, including NPO status and Medication History. Additional ROS/History Findings: Allergies Allergen Reactions ??? Morphine Anaphylaxis ??? Sulfa (Sulfonamide Antibiotics) Anaphylaxis ??? Tylenol [Acetaminophen] Other (See Comments) Contraindication with medical hx ??? Aspirin Other (See Comments) Contraindication with medical hx ??? Injectafer [Ferric Carboxymaltose] ??? Lyrica [Pregabalin] Anxiety Insomnia ??? Reglan [Metoclopramide Hcl] Rash Review of Systems Past Medical History: Diagnosis Date ??? Anemia ??? Anxiety ??? Asthma 12/10/2020 currently not taking - mild persistent - see dr. Veronica 11/20/2021 ??? Bleeding disorder ([facility]) ??? Bursitis right shoulder ??? C. difficile colitis 07/25/2015 Hospitalized after kidney stone removal ??? Chronic ITP (idiopathic thrombocytopenia) ([facility]) 12/10/2020 - see 11/20/2020 Dr. Veronica H&P, (managed by Starr Paige MD) ??? Chronic kidney disease ??? Cirrhosis of liver (HCC-CMS) ??? Clotting disorder (HCC-CMS) ??? COPD exacerbation (HCC-CMS) 04/26/2020 ??? Depression ??? Does not exercise ??? Drug-seeking behavior Per Dr Amelia Tijerina and notes from [facility] patient misconstrued information to several providers [...] Paige MD) ??? Thyroid disease Relevant Problems No relevant active problems Physical Exam Airway Mallampati: III TM distance: <3 FB Neck ROM: full Cardiovascular Rhythm: regular Dental Pulmonary (+) wheezes Abdominal Other findings: Missing many teeth, extremely poor dentition Anesthesia Plan ASA 3 Anesthesia Type - general Anesthesia plan and risks discussed. Informed consent obtained from patient. PAT Note (Notes from 11/17/20 through 12/17/20) PAT Note by Kimberley Liu APRN at 12/10/2020 14:52 Version 1 of 1 Pt has pancytopenia with associated Liver cirrhosis and portal hypertension with hypersplenism. Forlast surgery pt received Lustrombopaq prior to DOS. There was a question about a hematology plan for this current surgery. Dr Paige has communicated with Dr Jacobson per Hematology RN. does not think that pt requires platelets at this time. Current platelets 12/04/2020 were 65. KIMBERLEY LIU APRN * Anesthesia Postprocedure Evaluation - Anthony Armenta CRNA - 12/17/2020 1427 EST Patient: Tara Camacho Yun Vital signs were reviewed with the recovery nurse. Complete vitals history is available in the Epicflowsheets. Vitals Value Taken Time BP 84/55 12/17/20 1421 Temp 36.3 ??C (97.3 ??F) 12/17/20 1421 Resp 25 12/17/20 142 Pulse From Oximetry 92 BPM 12/17/20 142 SpO2 96 % 12/17/201426 Vitals shown include unvalidated device data. Last Pain Score - Numeric Pain Level (Scale 1-10): 0 Type of Anesthesia - general Anesthesia Post Evaluation Level of consciousness: awake Temperature status: normothermia Respiratory status: airway patent Cardiovascular status: acceptable Hydration status: adequate Nausea/Vomiting: none Pain management: adequate Post-Op Assessment: patient tolerated procedure well with no complications Patient participation: unable to participate due to sedation Disposition: inpatient Anesthesia Complications: No apparent anesthesia complications * Anesthesia Procedure Notes - Anthony Armenta CRNA - 12/17/2020 1331 EST Associated Order(s): Airway Airway Urgency: elective Airway not difficult General Information and Staff Patient location during procedure: OR Performed: resident/FEED HANDLER/AA Indications and Patient Condition Indications for airway management: anesthesia Sedation level: GA Preoxygenated: yes Patient position: sniffing Ventilation assessment: 2 - Oral airway inserted Final Airway Details Final airway type: endotracheal airway Successful airway: ETT Successful intubation technique: direct laryngoscopy Blade: Jakob Blade size: #3 ETT size (mm): 7.0 Cormack-Lehane Classification: grade IIb - view of arytenoids or posterior of glottis only (2b withburp) Placement verified by: capnometry and palpation of cuff Measured from: gums ETT to gums (cm): 22 Number of attempts at approach: 1 * Anesthesia Preprocedure Evaluation - Anthony Armenta CRNA - 12/16/2020 4632 EST Anesthesia Preprocedure Evaluation. Patient Medical History, including Anesthesia History reviewed. Chart and Nursing Notes reviewed, including NPO status and Medication History. Additional ROS/History Findings: 60yo female with PMH significant for COPD (on 2LPM O2 at night, completed steroid taper a week and a half ago), QUIROZ, cirrhosis, chronic thrombocytopenia (platelets= 49 12/15) presenting for cystoscopy with stent placement. Outpatient Medications albuterol (ACCUNEB) 2.5 mg /3 mL (0.083 %) nebulizer solution USE 1 VIAL VIA NEBULIZER 4 TIMES A DAY NEEDED albuterol 90 mcg/actuation inhaler Inhale 2 Puffs as directed every 4 hours as needed. docusate sodium (COLACE) 100 mg capsule TAKE 1 CAPSULE BY MOUTH TWICE A DAY ERGOCALCIFEROL, VITAMIN D2, (VITAMIN D ORAL) Take by mouth. ferrous gluconate (FERGON) 324 mg (38 mg iron) tablet Take 324 mg by mouth daily with breakfast. furosemide (LASIX) 40 mg tablet TAKE 2 TABLETS BY MOUTH EVERY DAY hydrOXYzine (ATARAX) 25 mg tablet TAKE 1 TABLET BY MOUTH AT BEDTIME NEEDED levothyroxine (SYNTHROID) 25 mcg tablet Take 1 Tab by mouth daily. Unknown dose Patient taking differently: Take 25 mcg by mouth daily before breakfast. LUSUTROMBOPAG ORAL Take 3 mg by mouth daily. magnesium oxide (MAG-OX) 400 mg (241.3 mg magnesium) tablet Take 1 Tab by mouth daily. ondansetron (ZOFRAN) 4 mg tablet Take 1 Tab by mouth 2 times daily as needed for Nausea. oxyCODONE (ROXICODONE) 5 mg immediate release tablet Take 1 Tab by mouth 2 times daily as needed for Pain. Daily Max: 10 mg OXYGEN-AIR DELIVERY SYSTEMS MISC 2 L by misc (non-drug; combo route) route at bedtime. phenazopyridine (PYRIDIUM) 200 mg tablet Take 1 Tab by mouth 3 times daily as needed for Pain. predniSONE (DELTASONE) 20 mg tablet TAKE 3 TABLETS BY MOUTH ONCE DAILY FOR 4 DAYS, START TOMORROW (11/18) SENNA LAXATIVE 8.6 mg tablet TAKE 1 TABLET BY MOUTH EVERYDAY AT BEDTIME sertraline (ZOLOFT) 25 mg tablet Take 25 mg by mouth daily. spironolactone (ALDACTONE) 100 mg tablet Take 1 Tab by mouth daily. Patient taking differently: Take 150 mg by mouth daily before breakfast. spironolactone (ALDACTONE) 50 mg tablet Take one 50 mg tablet with one 100 mg tablet daily for a total of 150 mg daily. SYMBICORT 160-4.5 mcg/actuation HFA aerosol inhaler inhaler Inhale 2 Puffs as directed daily. Patient taking differently: Inhale 2 Puffs as directed daily before breakfast. TAMSulosin (FLOMAX) 0.4 mg capsule Take 1 Cap by mouth at bedtime. Allergies Allergen Reactions [...] Negative for congestion and sore throat. Respiratory: Negative for cough and shortness of breath. COPD with home O2 use but feels like breathing is at baseline Cardiovascular: Negative for chest pain and palpitations. Gastrointestinal: Negative for heartburn. Genitourinary: Positive for flank pain. Endo/Heme/Allergies: Does not bruise/bleed easily. Past Medical History: Diagnosis Date ??? Anemia ??? Anxiety ??? Asthma 12/10/2020 currently not taking - mild persistent - see dr. Veronica 11/20/2021 ??? Bleeding disorder ([facility]) ??? Bursitis right shoulder ??? C. difficile colitis 07/25/2015 Hospitalized after kidney stone removal ??? Chronic ITP (idiopathic thrombocytopenia) ([facility]) 12/10/2020 - see 11/20/2020 Dr. Veronica H&P, (managed by Starr Paige MD) ??? Chronic kidney disease ??? Cirrhosis of liver (HCC-CMS) ??? Clotting disorder (HCC-CMS) ??? COPD exacerbation (HCC-CMS) 04/26/2020 ??? Depression ??? Does not exercise ??? Drug-seeking behavior Per Dr Amelia Tijerina and notes from [facility] patient misconstrued information to several providers [...] (+) HUEY (obstructive sleep apnea) PULMONARY (+) Dyspnea (+) Mild persistent asthma without complication (+) HUEY (obstructive sleep apnea) CARDIOVASCULAR (+) Splenic vein thrombosis /Renal (+) Cirrhosis of liver (HCC-CMS) (+) Nephrolithiasis ENDO/GI (+) Hypothyroidism Other (+) Hypersplenism syndrome (+) Splenic vein thrombosis Lab Results Component Value Date WBC 2.30 (L) 12/04/2020 HGB 11.3 (L) 12/04/2020 HCT 33.3 (L) 12/04/2020 MCV 85 12/04/2020 PLT 65 (L) 12/04/2020 Lab Results Component Value Date NA 135 (L) 12/04/2020 K 4.7 12/04/2020 KEXT 4.2 08/28/2020 CL 99 12/04/2020 CLEXT 100 08/28/2020 CO2 30 12/04/2020 CO2EXT 31 08/28/2020 Physical Exam Airway Mallampati: III TM distance: <3 FB Neck ROM: full Cardiovascular Rhythm: regular Rate: normal Dental Comments: edentulous Pulmonary (+) wheezes Abdominal (+) obese Anesthesia Plan ASA 3 Anesthesia Type - MAC vs. GA Anesthesia plan and risks discussed. Informed consent obtained from patient. Specific risks discussed were nausea, vomiting, myocardial infarction, stroke and . PAT Note (Notes from 11/17/20 through 12/17/20) PAT Note by Kimberley Liu APRN at 12/10/2020 14:52 Version 1 of 1 Pt has pancytopenia with associated Liver cirrhosis and portal hypertension with hypersplenism. Forlast surgery pt received Lustrombopaq prior to DOS. There was a question about a hematology plan for this current surgery. Dr Paige has communicated with Dr Jacobson per Hematology RN. MD does not think that pt requires platelets at this time. Current platelets 12/04/2020 were 65. KIMBERLEY LIU APRN documented in this encounter Plan of Treatment Upcoming Encounters Date Type Department Care Team (Late st Contact Info) Description 01/04/2025 13:00 EST Office Visit [facility] Ophthalmology - [address] [phone] Gagandeep Rome MD [address] [place] [address], [facility] [address] [place] [phone] 02/11/2025 13:30 EDT Telemedicine [facility] Hematology & Oncology - [address] [address] Dana Padilla MD [address] [place] [address], [address] [place] [phone] documented as of this encounter Procedures Procedure Name Priority Date/Time Associated Diagnosis Comments ANESTHESIA INTUBATION Routine 12/17/2020 13:31 EST documented in this encounter Results * Airway (12/17/2020 13:31 EST) Narrative Anthony Armenta CRNA - 12/17/2020 13:31 EST Anthony Armenta CRNA ? 12/17/2020 13:32 Airway Urgency: elective Airway not difficult General Information and Staff Patient location during procedure: OR Performed: resident/FEED HANDLER/AA Indications and Patient Condition Indications for airway management: anesthesia Sedation level: GA Preoxygenated: yes Patient position: sniffing Ventilation assessment: 2 - Oral airway inserted Final Airway Details Final airway type: endotracheal airway Successful airway: ETT Successful intubation technique: direct laryngoscopy Blade: Jakob Blade size: #3 ETT size (mm): 7.0 Cormack-Lehane Classification: grade IIb - view of arytenoids or posterior of glottis only (2b with burp) Placement verified by: capnometry and palpation of cuff Measured from: gums ETT to gums (cm): 22 Number of attempts at approach: 1 us Josh Hale MD ANESTHESIA ORDERABLES F inal Result documented in this encounter Visit Diagnoses Not on filedocumented in this encounter Administered Medications Inactive Administered Medications - up to 3 most recent administrations Medication Order MAR Action Action Date Dose Rate Site albuterol inhaler inhalation, PRN, Starting on Tue12/17/20 at 1252, Until Tue12/17/20 at 1427, Routine, Anesthesia Intraprocedure Given 12/17/2020 12:52 EST 6 Puffs ceFAZolin (ANCEF) syringe 2 g 2 g, intravenous, Administer over 10 Minutes, PRE-OP ONCE, 1 dose, On Tue12/17/20 at 1000, Type of Therapy: Prophylaxis, Suspected Indication (Select all that apply): Surgical prophylaxis, Routine, Preprocedure Given 12/17/2020 13:19 EST 2,000 mg dexaMETHasone (DECADRON) injection PRN, Starting on Tue12/17/20 at 1330, Until Tue12/17/20 at 1427, Routine, Anesthesia Intraprocedure Given 12/17/2020 13:30 EST 8 mg dexmedeTOMIDine (PRECEDEX) injection PRN, Starting on Tue12/17/20 at 1259, Until Tue12/17/20 at 1427, Routine, Anesthesia Intraprocedure Given 12/17/2020 12:59 EST 20 mcg glycopyrrolate (PF) (ROBINUL) 0.4 mg/2 mL (0.2 mg/mL) injection PRN, Starting on Tue12/17/20 at 1304, Until Tue12/17/20 at 1427, Routine, Anesthesia Intraprocedure Given 12/17/2020 13:04 EST 0.2 mg HYDROmorphone (DILAUDUD) 2 mg/mL injection PRN, Starting on Tue12/17/20 at 1322, Until Tue12/17/20 at 1427, Routine, Anesthesia Intraprocedure Given 12/17/2020 13:22 EST 0.8 mg ketAMINE in NaCl, iso-osmotic (KETALAR) 50 mg/5 mL (10 mg/mL) IV injection PRN, Starting on Tue12/17/20 at 1304, Until Tue12/17/20 at 1427, Routine, Anesthesia Intraprocedure Given 12/17/2020 13:25 EST 20 mg Given 12/17/2020 13:04 EST 20 mg lactated ringers (LR) infusion 30 mL/hr, intravenous, CONTINUOUS, Starting on Tue12/17/20 at 1000, Until Kirsten 12/18/20 at 1723, Routine, Preprocedure Continued by Anesthesia 12/17/2020 13:20 EST New Bag 12/17/2020 10:15 EST 30 mL/hr 30 mL/hr metoprolol (LOPRESSOR) injection PRN, Starting on Tue12/17/20 at 1335, Until Tue12/17/20 at 1427, Routine, Anesthesia Intraprocedure Given 12/17/2020 13:35 EST 2 mg midazolam (PF) (VERSED) injection PRN, Starting on Tue12/17/20 at 1257, Until Tue12/17/20 at 1427, Routine, Anesthesia Intraprocedure Given 12/17/2020 13:02 EST 1 mg Given 12/17/2020 12:57 EST 1 mg ondansetron (PF) (ZOFRAN) injection PRN, Starting on Tue12/17/20 at 1331, Until Tue12/17/20 at 1427, Routine, Anesthesia Intraprocedure Given 12/17/2020 13:31 EST 4 mg phenylephrine HCl in 0.9% NaCl (NEO_SYNEPHRINE) 20 mg/250 mL (80 mcg/mL) infusion solution FA IP EQF CONTINUOUS PRN FOR ONE STEP MEDS, Starting on Tue12/17/20 at 1304, Until Tue12/17/20 at 1427, Routine, Anesthesia Intraprocedure Rate Change 12/17/2020 13:43 EST 70 mcg/min 52.5 mL/hr Rate Change 12/17/2020 13:31 EST 60 mcg/min 45 mL/hr New Bag 12/17/2020 13:04 EST 40 mcg/min 30 mL/hr propofol (DIPRIVAN) 500 mg in 50 mL infusion FA IP EQF CONTINUOUS PRN FOR ONE STEP MEDS, Starting on Tue12/17/20 at 1344, Until Tue12/17/20 at 1427, Routine, Anesthesia Intraprocedure Rate Change 12/17/2020 13:59 EST 170 mcg/kg/min 97 mL/hr Rate Change 12/17/2020 13:50 EST 120 mcg/kg/min 68.5 mL/hr New Bag 12/17/2020 13:44 EST 20 mcg/kg/min 11.4 mL/hr propOFol (DIPRIVAN) injection PRN, Starting on Tue12/17/20 at 1324, Until Tue12/17/20 at 1427, Routine, Anesthesia Intraprocedure Given 12/17/2020 13:58 EST 20 mg Given 12/17/2020 13:50 EST 30 mg Given 12/17/2020 13:24 EST 30 mg sugammadex (BRIDION) injection PRN, Starting on Tue12/17/20 at 1354, Until Tue12/17/20 at 1427, Routine, Anesthesia Intraprocedure Given 12/17/2020 13:54 EST 200 mg documented in this encounter Orders Medications Ordered That Luc ht Not Have Been Administered Count Last Ordered Date First Ordered Date HYDROmorphone (DILAUDUD) 2 mg/mL injection 1 12/17/2020 documented in this encounter Care Teams S[employer]enc[employer] Relationship Specialty Start Date End Date Emigdio Veronica MD [address] [place] [phone] PCP - General Internal Medicine - Primary Care 05/22/20 02/21/24 documented as of this encounter
--- OUTSIDE RECORDS SUMMARY | 2024-11-22 17:19 | XMS_ITS | Encounter Summary ---
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 Daily Max: 10 mg 20 Tab 12/09/2020 02/27/2021 documented in this encounter Miscellaneous Notes * Telephone Encounter - Heike Mcleod RN - 12/09/2020 1250 EST Call to Patient Relayed message per dr fernandez States she just had imaging done and stent is out of place and she is very crampy and uncomfortable She is on her way now to see urology Patient expressed understanding with no barriers No additional questions or concerns to be addressed at this time. * Telephone Encounter - Emigdio Fernandez MD - 12/09/2020 1227 EST She is currently seeing urology for outpatient follow-up. She is now s/p left cystoscopy and ureter stent placement. It is hard to gauge whether her pain is from her stent or stone. I will refill her oxycodone for 10 additional days until her surgery for stone removal, but she needs to follow-up with urology as well. * Telephone Encounter - Noemi Hall - 12/08/2020 1421 EST Requested Prescriptions Pending Prescriptions Disp Refills ??? oxyCODONE (ROXICODONE) 5 mg immediate release tablet 20 Tab 0 Sig: Take 1 Tab by mouth 2 times daily as needed for Pain. Daily Max: 10 mg [id number] - [address] Confirmed Pharmacy? Yes Patient out of medication? No mary jane be out tomorrow Last Refill Date: 1.14.21 Refills left? (explain exceptions requiring early refill) No Recent Visits Date Type Provider Dept 11/20/20 Office Visit Emigdio Fernandez MD [facility] 10/15/20 Office Visit Emigdio Fernandez MD [facility] 10/10/20 Office Visit Scottie Campuzano PA-C [facility] 09/05/20 Office Visit Emigdio Fernandez MD [facility] 08/22/20 Office Visit Emigdio Fernandez MD [facility] 08/01/20 Office Visit Emigdio Fernandez MD [facility] 06/23/20 Office Visit Emigdio Fernandez MD [facility] 05/29/20 Office Visit Emigdio Fernandez MD [facility] 05/22/20 Office Visit Emigdio Fernandez MD [facility] Showing recent visits within past 540 days with a meds authorizing provider and meeting all other requirements Future Appointments Date Type Provider Dept 12/15/20 Appointment Emigdio Fernandez MD [facility] 12/29/20 Appointment Emigdio Fernandez MD [facility] Showing future appointments within next 150 days with a meds authorizing provider and meeting all other requirements Future appointment: Already Scheduled Noemi Hall 12/08/2020 14:21 documented in this encounter Plan of Treatment Upcoming Encounters Date Type Department Care Team (Late st Contact Info) Description 01/04/2025 13:00 EST Office Visit [facility] Ophthalmology - [address] [phone] Gagandeep Rome MD [address] [place] [address], [facility] [address] [place] [phone] 02/11/2025 13:30 EDT Telemedicine [facility] Hematology & Oncology [address] [phone] Dana Padilla MD [address] [place] [address] [address] [place] [phone] documented as of this encounter Visit Diagnoses Not on filedocumented in this encounter Discontinued Medications Medication Sig Discontinue Reason Start Date End Da te oxyCODONE (ROXICODONE) 5 mg immediate release tablet Take 1 Tab by mouth every 4 hours as needed for Pain. Daily Max: 30 mg Duplicate order 12/04/2020 12/09/2020 oxyCODONE (ROXICODONE) 5 mg immediate release tablet Take 1 Tab by mouth 2 times daily as needed for Pain. Daily Max: 10 mg Reorder 12/01/2020 12/08/2020 documented as of this encounter Care Teams Agriculture Science Teacher Relationship Specialty Start Date End Date Emigdio Fernandez MD [address] [place] [phone] PCP - General Internal Medicine - Primary Care 05/22/20 02/21/24 documented as of this encounter
--- OUTSIDE RECORDS SUMMARY | 2024-11-22 17:19 | XMS_ITS | Encounter Summary ---
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 Answer Date of Assessment Author No 04/26/2020 7:00 Chao Young RN * Are you blind or do you have serious difficulty seeing, even when wearing glasses? Answer Date of Assessment Author No 04/26/2020 7:00 Chao Young RN * Do you have serious difficulty walking or climbing stairs? (5 years old or older) Answer Date of Assessment Author No 04/26/2020 7:00 Chao Young RN * Do you have difficulty dressing or bathing? (5 years old or older) Answer Date of Assessment Author No 04/26/2020 7:00 Chao Young RN * Because of a physical, mental, or emotional condition, do you have difficulty doing errands alone such as visiting a doctor's office or shopping? (15 years old or older) Answer Date of Assessment Author No 04/26/2020 7:00 Chao Young RN documented as of this encounter Mental Status * Because of a physical, mental, or emotional condition, do you have serious difficulty concentrating, remembering, or making decisions? (5 years old or older) Answer Entry Date Author No 04/26/2020 7:00 Chao Young RN documented in this encounter Progress Notes * Lon Ortez MD - 11/27/2020 0945 EST Chief Complaint: No chief complaint on file. HPI: Tara is a 60 y.o. female with a history of nephrolithiasis. She has had about 4 weeks of severe left flank pain responsive to oxycodone. She had a CT scan at [facility] showing a possible left mid ureteral stone. She has not had fevers or chills. She received clearance fromher sand slinger and will be off of medications periprocedurally. She has not passed a stone. Medications Current Outpatient Medications: ??? albuterol (ACCUNEB) [...] Rfl: ??? furosemide (LASIX) 40 mg tablet, Take 2 Tabs by mouth daily., Disp: 90 Tab, Rfl: 3 ??? levothyroxine (SYNTHROID) 25 mcg tablet, Take 1 Tab by mouth daily. Unknown dose, Disp: 90 Tab,Rfl: 3 ??? lusutrombopag 3 mg tablet, Take 3 mg by mouth daily for 7 days., Disp: 7 Tab, Rfl: 0 ??? magnesium oxide (MAG-OX) 400 mg (241.3 mg magnesium) tablet, Take 1 Tab by mouth daily., Disp: 200 Tab, Rfl: 1 ??? ondansetron (ZOFRAN) 4 mg tablet, Take 1 Tab by mouth 2 times daily as needed for Nausea., Disp: 60 Tab, Rfl: 3 ??? oxyCODONE (ROXICODONE) 5 mg immediate release tablet, Take 1 Tab by mouth 2 times daily as needed for Pain. Daily Max: 10 mg, Disp: 30 Tab, Rfl: 0 ??? OXYGEN-AIR DELIVERY SYSTEMS MISC, by misc (non-drug; combo route) route., Disp: , Rfl: ??? predniSONE (DELTASONE) 10 mg tablet, Take 4 Tabs by mouth daily for 2 days, THEN 3 Tabs daily for 2 days, THEN 2 Tabs daily for 2 days, THEN 1 Tab daily for 2 days., Disp: 30 Tab, Rfl: 0 ??? SENNA LAXATIVE 8.6 mg tablet, TAKE 1 TABLET BY MOUTH EVERYDAY AT BEDTIME, Disp: 30 Tab, Rfl: 11 ??? spironolactone (ALDACTONE) 100 mg tablet, Take 1 Tab by mouth daily., Disp: 90 Tab, Rfl: 3 ??? spironolactone (ALDACTONE) 50 mg tablet, Take one 50 mg tablet with one 100 mg tablet daily fora total of 150 mg daily., Disp: 90 Tab, Rfl: 0 ??? SYMBICORT 160-4.5 mcg/actuation HFA aerosol inhaler inhaler, Inhale 2 Puffs as directed daily.,Disp: 1 Inhaler, Rfl: 11 ??? tamsulosin (FLOMAX) 0.4 mg capsule, Take 1 Cap by mouth daily., Disp: 30 Cap, Rfl: 11 ??? umeclidinium (INCRUSE ELLIPTA) 62.5 mcg/actuation, Take 1 Puff by mouth daily., Disp: 1 Each, Rfl: 11 No current facility-administered medications for this visit. [...] taken for this visit. Exam: Data Review: NA Labs: BMP: Lab Results Component Value Date NA 135 (L) 08/25/2020 K 4.5 08/25/2020 CL 97 08/25/2020 CO2 32 08/25/2020 BUN 16 08/25/2020 CREATININE 1.08 (H) 08/25/2020 GLUCOSEFINGE 83 06/20/2017 CALCIUM 8.8 08/22/2020 MG 1.8 08/25/2020 LABALBU 3.6 08/22/2020 Impression: Patient with a likely left 4 mm mid ureteral stone and left flank pain. We will proceedto the operating room next week for ureteroscopy and ureteral stenting. Plan: Push images from [facility] Obtain urine culture Preoperative clearance from her sand slinger Plan for OR for left ureteroscopy with stenting Lon Ortez MD This note has been prepared with voice recognition software. Please excuse consulting sme errors. Patient consented to a phone visit. I spent a total of 8 minutes with Tara Yun today and 8 minutes of that time was spent in counseling and coordination of care as described in the progress note. documented in this encounter Plan of Treatment Upcoming Encounters Date Type Department Care Team (Late st Contact Info) Description 01/04/2025 13:00 EST Office Visit [facility] Ophthalmology - [address] [phone] Gagandeep Rome MD [address] [place] [address] 5 [place] [address] 02/11/2025 13:30 EDT Telemedicine [facility] Hematology & Oncology [address] [address] Dana Padilla MD [address] [place] [address] 2 [place] [phone] documented as of this encounter Visit Diagnoses Diagnosis Flank pain- Primary Abdominal pain, unspecified site documented in this encounter Care Teams Ocean Rescue Lieutenant Relationship Specialty Start Date End Date Emigdio Veronica MD [address] [place] [phone] PCP - General Internal Medicine - Primary Care 05/22/20 02/21/24 documented as of this encounter
--- OUTSIDE RECORDS SUMMARY | 2024-11-22 17:19 | XMS_ITS | Encounter Summary ---
Author Organization [facility] Address [address] [place] [address] Care Team Providers Care Usps Letter Carrier Name Role Phone Emigdio Veronica MD Primary Care Provider + Starr Paige MD Unavailable Dana Padilla MD Unavailable Izabella Snowden [facility] Unavailable [phone] None, Provider Primary Care Provider UnavailGabriel Dacosta Primary Care Provider [phone] Mirna Guerrero Primary Care Provider + Reason for Visit * Reason Onset Date Comments COVID-19 12/06/2020 Encounter Details Date Type Department Care Team (Late st Contact Info) Description 12/06/2020 Telephone [facility] - [facility] [address] [place] [address] Hardik Vargas, DO [address] [facility], [address] [place] [address] COVID-19 Social History Tobacco Use [...] 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 Science Intern explained to patient they need to be tested between 12/10 and before noon on 12/12 in order to get results back in time. Science Intern faxed order and will verify it was received. documented in this encounter Plan of Treatment Upcoming Encounters Date Type Department Care Team (Late st Contact Info) Description 01/04/2025 13:00 EST Office Visit [facility] Ophthalmology - [address] [phone] Gagandeep Rome MD [address] [place] [address], [facility] 5 [place] [phone] 02/11/2025 13:30 EDT Telemedicine [facility] Hematology & Oncology [address] [phone] Dana Padilla MD [address] [place] [address], [facility] 2 [place] [phone] documented as of this encounter Visit Diagnoses [...] documented as of this encounter Care Teams Usps Letter Carrier Relationship Specialty Start Date End Date Emigdio Veronica MD [address] [place] [address] PCP - General Internal Medicine - Primary Care 05/22/20 02/21/24 None, Provider PCP - General 02/24/24 03/18/24 Gabriel Gandara PA PCP - General 03/19/24 09/11/24 Mirna Guerrero PA [address] [place] [address] PCP - General 09/12/24 Starr Paige MD [address] [place] [phone] Hematology 10/08/21 06/09/22 Dana Padilla MD 111 [facility], [address] [place] [address] Hematology 01/13/22 06/09/22 Izabella Snowden, [facility] 1 [facility], 3rd [place] [phone] Flake Cutter Operator 02/21/23 05/03/24 documented as of this encounter
--- OUTSIDE RECORDS SUMMARY | 2024-11-22 17:19 | XMS_ITS | Encounter Summary ---
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 furosemide (LASIX) 40 mg tablet [Pharmacy Med Name: FUROSEMIDE 40 MG TABLET] 90 Tab 3 Sig: TAKE 2 TABLETS BY MOUTH EVERY DAY [id number] - [address] Confirmed Pharmacy? [facility] Request Patient out of medication? Unknown Last Refill Date: 08/01/20 Refills left? (explain exceptions requiring early refill) No Recent Visits Date Type Provider Dept 11/20/20 Office Visit Emigdio Veronica MD [place] [facility] 10/15/20 Office Visit Emigdio Veronica MD [place] 10/10/20 Office Visit Scottie Campuzano PA-C [facility] 09/05/20 Office Visit Emigdio Veronica MD [facility] 08/22/20 Office Visit Emigdio Veronica MD [facility] 08/01/20 Office Visit Emigdio Veronica MD [facility] 06/23/20 Office Visit Emigdio Veronica MD [place] 05/29/20 Office Visit Emigdio Veronica MD [facility] 05/22/20 Office Visit Emigdio Veronica MD [facility] Showing recent visits within past 540 days with a meds authorizing provider and meeting all other requirements Future Appointments Date Type Provider Dept 12/15/20 Appointment Emigdio Veronica MD [facility] 12/29/20 Appointment Emigdio Veronica MD [facility] Showing future appointments within next 150 days with a meds authorizing provider and meeting all other requirements Future appointment: Already Scheduled KAROL SCHULTZ RN 12/12/2020 13:25 documented in this encounter Plan of Treatment Upcoming Encounters Date Type Department Care Team (Late st Contact Info) Description 01/04/2025 13:00 EST Office Visit [facility] Ophthalmology - [address] [phone] Gagandeep Rome MD [address] [place] [address] 5 [place] [phone] 02/11/2025 13:30 EDT Telemedicine [facility] Hematology & Oncology - [address] [phone] Dana Padilla MD [address] [place] [address] 2 [place] [address] documented as of this encounter Visit Diagnoses Not on filedocumented in this encounter Discontinued Medications Medication Sig Discontinue Reason Start Date End Da te furosemide (LASIX) 40 mg tablet Take 2 Tabs by mouth daily. 08/01/2020 12/12/2020 documented as of this encounter Care Teams Patternmaker Plaster And Plastic Relationship Specialty Start Date End Date Emigdio Veronica MD [address] [place] [phone] PCP - General Internal Medicine - Primary Care 05/22/20 02/21/24 documented as of this encounter
--- OUTSIDE RECORDS SUMMARY | 2024-11-22 17:19 | XMS_ITS | Encounter Summary ---
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 [...] Adria Hernandez RN documented in this encounter Plan of Treatment Upcoming Encounters Date Type Department Care Team (Late st Contact Info) Description 01/04/2025 13:00 EST Office Visit [facility] Ophthalmology - [address] [phone] Gagandeep Rome MD [address] [place] [address], [facility] 5 [place] [phone] 02/11/2025 13:30 EDT Telemedicine [facility] Hematology & Oncology - [address] [phone] Dana Padilla MD [address] [place] [address], [facility] 2 [place] [phone] documented as of this encounter Visit Diagnoses Not on filedocumented in this encounter Care Teams Legal Investigator Relationship Specialty Start Date End Date Emigdio Veronica MD 2 [place] [phone] PCP - General Internal Medicine - Primary Care 05/22/20 02/21/24 documented as of this encounter
--- OUTSIDE RECORDS SUMMARY | 2024-11-22 17:19 | XMS_ITS | Encounter Summary ---
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 10 Tab 12/12/2020 03/19/2021 documented in this encounter Miscellaneous Notes * Telephone Encounter - Joseline Arcos RN - 12/12/2020 1512 EST TC to pt. Pt states the pyridium has been helping a lot and she notices when she is not taking it. Pt can't wait to have all of these procedures behind her. Explained that Dr. Ortez is out of the office and nursing will ask a colleague of Dr. Ortez. TC to pt. Dr. Dawson sent in 10 tablets pyridium prescription. * Telephone Encounter - Jayden Cox - 12/12/2020 114 EST Medication(s) Requested phenazopyridine (PYRIDIUM) 200 mg tablet Pharmacy [id number] - [place], [place] - [address] [place] [address] [place] [address] Dr [facility] [address] ?? Next Visit Date Visit date not found Out of Medication? Yes Jayden Cox 12/12/2020 11:49 documented in this encounter Plan of Treatment Upcoming Encounters Date Type Department Care Team (Late st Contact Info) Description 01/04/2025 13:00 EST Office Visit [facility] Ophthalmology - [address] [address] Gagandeep Rome MD [address] [place], [place] [address], [facility] 5 [place] [phone] 02/11/2025 13:30 EDT Telemedicine [facility] Hematology & Oncology - [facility] [address] [place], [place] [phone] Dana Padilla MD 111 [facility] 2 [place] [address] documented as of this encounter Visit Diagnoses Not on filedocumented in this encounter Discontinued Medications Medication Sig Discontinue Reason Start Date End Da te phenazopyridine (PYRIDIUM) 200 mg tablet Take 1 Tab by mouth 3 times daily as needed for Pain. Reorder 12/04/2020 12/12/2020 documented as of this encounter Care Teams Junior Designer Relationship Specialty Start Date End Date Emigdio Veronica MD [address] [place] [phone] PCP - General Internal Medicine - Primary Care 05/22/20 02/21/24 documented as of this encounter
--- OUTSIDE RECORDS SUMMARY | 2024-11-22 17:19 | XMS_ITS | Encounter Summary ---
Author Organization [facility] Address [address] [place] [address] Care Team Providers Care University Professor Name Role Phone Emigdio Veronica MD Primary Care Provider + Reason for Visit * Reason Comments Diagnostic Polysomnogram * Sleep Study (Urgent) - Closed Specialty Diagnoses / Procedures Referred By [facility] Referred To Contact Diagnoses HUEY (obstructive sleep apnea) Procedures SPLIT NIGHT POLYSOMNOGRAM (DIAGNOSTIC POLYSOMNOGRAM WITH SPLIT TO CPAP/BIPAP TITRATION) Abdulaziz Burns MD Phone: tel: fax: Referral ID Status Reason Start Date Expiration Date Visits Re quested Visits Authorized [id number] Closed 04/28/2020 1 1 Encounter Details Date Type Department Care Team (Late st Contact Info) Description 11/27/2020 20:00 EST Office Visit [facility] Sleep Program - [facility] [address] [place], [place] [phone] Polysomnogram, Pat 5 Obstructive sleep apnea (Primary Dx) Social History Tobacco Use Types [...] 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 No / Unsure 12/03/2020 10:03 EST documented as of this encounter Last Filed Vital Signs Vital Sign Reading Time Taken Comments Blood Pressure - - Pulse - - Temperature - - Respiratory Rate - - Oxygen Saturation - - Inhaled Oxygen Concentration - - Weight 92.1 kg (203 lb) 11/27/20202020 EST Height 160 cm (5' 3) 11/27/20202020 EST Body Mass Index 35.96 11/27/20202020 EST documented in this encounter Functional Status * Are you deaf or do you have serious difficulty hearing? Answer Date of Assessment Author No 04/26/2020 7:00 Chao Young say, RN * Are you blind or do you have serious difficulty seeing, even when wearing glasses? Answer Date of Assessment Author No 04/26/2020 7:00 Chao Young say, RN * Do you have serious difficulty [...] documented in this encounter Progress Notes * Gabriel Bustos Jr., MD - 11/27/2020 2000 EST Diagnostic Polysomnogram on 11/27/2020 [facility] [address] [place] [address] / fax [phone] In Summary: * Mild degree of Obstructive Sleep Apnea (HUEY) using the [place] [employer] (AASM) 2012 scoring criteria. AHI 5.1. Average O2 Sat: 91%. Aravind O2 sat: 82.0%. The patient slept in the supine and left lateral position. REM observed in both positions. Supine AHI 5.7 and left lateral AHI1.8. REM AHI 8.3 and NREM AHI 3.5. Sleep disordered breathing events primarily consisted of obstructive apneas and hypopneas. The patient spent a total of 66.6 minutes of sleep time with O2 saturation < 88%. The study had been scheduled as a split night polysomnogram (diagnostic and therapeutic)but CPAP was not applied as split criteria was not met, therefore study was continued and completedas a diagnostic polysomnogram. * Using the 2007 AASM scoring criteria the AHI is 2.1. * The patient slept a total of 400 minutes. Sleep efficiency of 90%. Sleep stage percentages: REM 32% (130 minutes). N1 10% (40 minutes). N2 58% (230 minutes). N3 0% (00 minutes). Arousal Index: 16/hour. Total # Arousals: 109. * Periodic Limb Movements (PLMs) are within normal limits. * TcCO2 was 38 mmHg at beginning of study in supine NREM sleep and aside from a brief increase suggestive of artifact did not exceed 44 mmHg. These findings do not meet AASM criteria for hypoventilation during sleep. * On supplemental O2 patients O2 saturation trended toward low 90s at 2 lpm and high 80s at 1 lpm. When off supplemental O2 oxygen saturation ran in low 80s. * Impression: This study supports a diagnosis of mild HUEY using the 2012 AASM scoring criteria. TheOSA may have been underestimated due to use of supplemental O2 during testing. The study was initiated with 2 lpm supplemental O2 as per order and hypoxemia was observed when security installation sales technician removed one of patient's 3 pillows and discontinued supplemental O2. TcCO2 monitoring did not meet AASM criteria for hypoventilation during sleep. Plan: * The patient should follow up with the requesting provider regarding the results of the DiagnosticPolysomnogram. * Clinical correlation of these results is recommended. Treatment options for obstructive sleep apnea if clinically appropriate include: PAP therapy, mandibular advancement device (oral appliance), upper airway surgery & positional therapy. Weight loss is recommended. * A consultation at the [facility] Sleep Program is available upon provider request. Gabriel Bustos Jr., MD 12/03/2020 14:06 Portions of this document may contain text elements generated through computerized voice recognition technology. Undetected computer-generated word errors are possible. Please notify the signing provider if clarification or correction is needed. This Sleep Study Report (including details) can be viewed under the Procedures Tab in the EMR ([employer]) as a scanned file attachment. If the Sleep Study Report cannot be accessed, a copy can be obtainedby contacting [facility] Sleep Program at [phone]. documented in this encounter Plan of Treatment Upcoming Encounters Date Type Department Care Team (Late st Contact Info) Description 01/04/2025 13:00 EST Office Visit [facility] Ophthalmology - [address] [phone] Gagandeep Rome MD 111 [facility], [facility] 5 [place] [phone] 02/11/2025 13:30 EDT Telemedicine [facility] Hematology & Oncology - [address] [phone] Dana Padilla MD 111 [facility], [facility] 2 [place] [address] documented as of this encounter Procedures Procedure Name Priority Date/Time Associated Diagnosis Comments SLEEP STUDY REPORT - SCANNED 12/03/2020 14:04 EST documented in this encounter Results * SLEEP STUDY REPORT - SCANNED (12/03/2020 14:04 EST) 12/03/2020 14:0 4 EST us Scan 2 Blocker Automatic PROCEDURE/MINOR SURGICAL OR DERABLES Edited Result - Final documented in this encounter Visit Diagnoses Diagnosis Obstructive sleep apnea- Primary Obstructive sleep apnea (adult) (pediatric) documented in this encounter Care Teams University Professor Relationship Specialty Start Date End Date Emigdio Veronica MD [address] [place] [address] PCP - General Internal Medicine - Primary Care 05/22/20 02/21/24 documented as of this encounter
--- OUTSIDE RECORDS SUMMARY | 2024-11-22 17:19 | XMS_ITS | Encounter Summary ---
Author Organization [facility] Address [address] [place] [address] Care Team Providers Care Truck Dispatcher Name Role Phone Emigdio Veronica MD Primary Care Provider + Reason for Visit * Reason Onset Date Comments Pre-procedure 12/05/2020 Pre-procedure 12/10/2020 Encounter Details Date Type Department Care Team (Late st Contact Info) Description 12/05/2020 Telephone [facility] Hematology & Oncology - [facility] [address] [place] [address] Starr Paige MD [address] [place] [address] Pre-procedure; Pre-procedure Social History Tobacco Use Types Packs/Day [...] 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 Got Lasatrombopaq last time, needs to know if she is still getting this or if she's going to need platelets. If she needs platelets, needs note. Needing Katherin to contact surgeon and patient. Also, has telemedicine with Dr Paige 12.17.20, the day of surgery. Needs sooner appointment. Going to need hem/onc clearance prior to surgery or they'll have to reschedule procedure. Will be in office today until 3 pm, after can page through PAS. Please call back * Telephone Encounter - Katherin Werner RN - 12/05/2020 1612 EST 1612 Called Tara and advised per Dr. Valencia she would not do the lusutrombopag again and instead she might need PLTs. Advised Dr. Valencia will discuss directly with her surgeon. She verbalized understanding and was thankful for the call back. No barriers to learning identified. * Telephone Encounter - Jossue Lopez - 12/05/2020 0815 EST Patient's kidney stone surgery had to be rescheduled for 12/17. Does Dr. Paige want to put patient back on regiment for keeping platelet counts high? Please call to discuss. documented in this encounter Plan of Treatment Upcoming Encounters Date Type Department Care Team (Late st Contact Info) Description 01/04/2025 13:00 EST Office Visit [facility] Ophthalmology - [address] [phone] Gagandeep Rome MD [address] [place] [address], Level [address] [place] [phone] 02/11/2025 13:30 EDT Telemedicine [facility] Hematology & Oncology - [address] [phone] Dana Padilla MD [address] [place] [address], [address] [place] [phone] documented as of this encounter Visit Diagnoses Not on filedocumented in this encounter Care Teams Truck Dispatcher Relationship Specialty Start Date End Date Emigdio Veronica MD [address] [place] [phone] PCP - General Internal Medicine - Primary Care 05/22/20 02/21/24 documented as of this encounter
--- OUTSIDE RECORDS SUMMARY | 2024-11-22 17:19 | XMS_ITS | Encounter Summary ---
Author Organization 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 Daily Max: 10 mg 20 Tab 12/01/2020 12/08/2020 documented in this encounter Miscellaneous Notes * Telephone Encounter - Emigdio Veronica MD - 12/01/2020 1153 EST Patient has surgery scheduled for 12/03/20 (two days from now) I will give her 10 days worth of oxycodone. * Telephone Encounter - Jes Mayorga RN - 12/01/2020 1011 EST Last filled on 11-18 for 30 tablets. Take one tab twice daily . Should last 15 days. * Telephone Encounter - Xuan Jimenez - 12/01/2020 0918 EST Requested Prescriptions Pending Prescriptions Disp Refills ??? oxyCODONE (ROXICODONE) 5 mg immediate release tablet 30 Tab 0 Sig: Take 1 Tab by mouth 2 times daily as needed for Pain. Daily Max: 10 mg Patient is out of medication and surgery is Tuesday12/03/20 [id number] - [place], [place] - [address] [facility] Confirmed Pharmacy? Yes Patient out of medication? Yes: Needs Refill Now Last Refill Date: 11/18/2020 Refills left? (explain exceptions requiring early refill) No Recent Visits Date Type Provider Dept 11/20/20 Office Visit Emigdio Veronica MD [place] [facility] 10/15/20 Office Visit Emigdio Veronica MD [place] [facility] 10/10/20 Office Visit Scottie Campuzano PA-C [place] [facility] 09/05/20 Office Visit Emigdio Veronica MD [place] [facility] 08/22/20 Office Visit Emigdio Veronica MD [place] [facility] 08/01/20 Office Visit Emigdio Veronica MD [place] [facility] 06/23/20 Office Visit Emigdio Veronica MD [place] [facility] 05/29/20 Office Visit Emigdio Veronica MD [place] [facility] 05/22/20 Office Visit Emigdio Veronica MD [place] [facility] Showing recent visits within past 540 days with a meds authorizing provider and meeting all other requirements Future Appointments Date Type Provider Dept 12/15/20 Appointment Emigdio Veronica MD [place] [facility] 12/29/20 Appointment Emigdio Veronica MD [place] [facility] Showing future appointments within next 150 days with a meds authorizing provider and meeting all other requirements Future appointment: Already Scheduled Xuan Jimenez 12/01/2020 9:19 documented in this encounter Plan of Treatment Upcoming Encounters Date Type Department Care Team (Late st Contact Info) Description 01/04/2025 13:00 EST Office Visit [facility] Ophthalmology - [address] [phone] Gagandeep Rome MD [address] [place] [address], [facility] 5 [place] [phone] 02/11/2025 13:30 EDT Telemedicine [facility] Hematology & Oncology [address] [phone] Dana Padilla MD [address] [place] [address], [facility] 2 [place] [address] documented as of this encounter Visit Diagnoses Not on filedocumented in this encounter Discontinued Medications Medication Sig Discontinue Reason Start Date End Da te oxyCODONE (ROXICODONE) 5 mg immediate release tablet Take 1 Tab by mouth 2 times daily as needed for Pain. Daily Max: 10 mg Reorder 11/18/2020 12/01/2020 documented as of this encounter Care Teams Unishear Operator Relationship Specialty Start Date End Date Emigdio Veronica MD [address] [place] [phone] PCP - General Internal Medicine - Primary Care 05/22/20 02/21/24 documented as of this encounter
--- OUTSIDE RECORDS SUMMARY | 2024-11-22 17:19 | XMS_ITS | Encounter Summary ---
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 No / Unsure 11/28/2020 15:06 EST documented as of this encounter Functional Status * Are you deaf or do you have serious difficulty hearing? Answer Date of Assessment Author No 04/26/2020 7:00 Chao Yuong RN * Are you blind or do [...] Chao Saravia RN documented in this encounter Plan of Treatment Upcoming Encounters Date Type Department Care Team (Late st Contact Info) Description 01/04/2025 13:00 EST Office Visit [facility] Ophthalmology - [address] [phone] Gagandeep Rome MD [address] [place] [address], [facility] 5 [place] [address] 02/11/2025 13:30 EDT Telemedicine [facility] Hematology & Oncology - [address] [address] Dana Padilla MD [address] [place] [address] 2 [place] [address] documented as of this encounter Procedures Procedure Name Priority Date/Time Associated Diagnosis Comments COMPLETE BLOOD COUNT AND DIFFERENTIAL Routine 12/01/2020 documented in this encounter Results * COMPLETE BLOOD COUNT AND DIFFERENTIAL (12/01/2020) WBC, External 3.94 [facility] RBC, External 4.35 [facility] Hemoglobin, External 12.8 [facility] HCT, External 39.4 [facility] MCV, External 90.6 [facility] MCH, External 29.4 [facility] MCHC, External 32.5 [facility] PLT, External 68 [facility] RDW-CV, External 14.2 [facility] Neutrophils, External 83.6 [facility] Lymphocytes, External 7.6 [facility] Monocytes, External 7.4 [facility] Eosinophils, External 0.8 [facility] Basophils, External 0.3 [facility] ABS Neutrophils, External 3.30 [facility] ABS Lymphs, External 0.30 [facility] ABS Monocytes, External 0.29 [facility] ABS Eosinophils, External 0.03 [facility] ABS Basophils, External 0.01 [facility] Blood VENOUS BLOOD / Unknown 12/01/2020 us Historical Provider PACKAGES & DNA PROBE DEMI CARDENAS Final Result [facility] documented in this encounter Visit Diagnoses Not on filedocumented in this encounter Care Teams Cable Tv Installer Relationship Specialty Start Date End Date Emigdio Veronica MD [address] [place] [phone] PCP - General Internal Medicine - Primary Care 05/22/20 02/21/24 documented as of this encounter
--- OUTSIDE RECORDS SUMMARY | 2024-11-22 17:19 | XMS_ITS | Encounter Summary ---
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 (5 years old or older) Answer Entry Date Author No 12/03/2020 15:29 EST Adria Marroquin RN documented in this encounter Progress Notes * Lon Ortez MD - 12/09/2020 1245 EST URO Office Cystoscopy Office cystoscopy for: Stent dislodged from the bladder and exiting urethra. Patient did undergo a left ureteral stent on 12/03/2020 for an obstructing 4 mm ureteral stone and an infection. She was discharged to home on postop day 1 and has been on antibiotics. She is having some flank pain and is leaking. Anesthesia: 2% lidocaine gel . Procedure: Patient identified, prepped and draped in usual sterile manner 14 emirati. Flexible cystoscope inserted into urethra and guided into bladder under direct vision. Finding: Stent seen emanating from the urethra and this was grasped and placed back into the bladder with a flexible cystoscope. Plan: She tolerated correct placement of the stent well. She has follow-up scheduled on the for ureteroscopy and stent exchange. Lon Ortez MD December 09, 2020 documented in this encounter Plan of Treatment Upcoming Encounters Date Type Department Care Team (Late st Contact Info) Description 01/04/2025 13:00 EST Office Visit [facility] Ophthalmology - [address] [phone] Gagandeep Rome MD [address] [place] [address], [facility] 5 [place] [phone] 02/11/2025 13:30 EDT Telemedicine [facility] Hematology & Oncology - [address] [phone] Dana Padilla MD [address] [place] [address], [facility] 2 [place] [phone] documented as of this encounter Visit Diagnoses Diagnosis Nephrolithiasis- Primary Calculus of kidney documented in this encounter Care Teams Education Instructor Relationship Specialty Start Date End Date Emigdio Veronica MD [address] [place] [phone] PCP - General Internal Medicine - Primary Care 05/22/20 02/21/24 documented as of this encounter
--- OUTSIDE RECORDS SUMMARY | 2024-11-22 17:19 | XMS_ITS | Encounter Summary ---
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 Answer Date of Assessment Author No 04/26/2020 7:00 Chao Young RN * Do you have serious difficulty walking or climbing stairs? (5 years old or older) Answer Date of Assessment Author No 04/26/2020 7:00 DAVIDT Chao Saravia RN * Do you have difficulty dressing or bathing? (5 years old or older) Answer Date of Assessment Author No 04/26/2020 7:00 DAVIDT Chao Saravia, RN * Because of a physical, mental, [...] Chao Young RN documented in this encounter Plan of Treatment Upcoming Encounters Date Type Department Care Team (Late st Contact Info) Description 01/04/2025 13:00 EST Office Visit [facility] Ophthalmology - [address] [phone] Gagandeep Rome MD [address] [facility], [facility] 5 [place] [phone] 02/11/2025 13:30 EDT Telemedicine [facility] Hematology & Oncology - [address] [phone] Dana Padilla MD 111 [facility], [facility] 2 [place] [phone] documented as of this encounter Visit Diagnoses Not on filedocumented in this encounter Care Teams Secretary Board Of Commissioners Relationship Specialty Start Date End Date Emigdio Veronica MD [address] [place] [phone] PCP - General Internal Medicine - Primary Care 05/22/20 02/21/24 documented as of this encounter
--- OUTSIDE RECORDS SUMMARY | 2024-11-22 17:19 | XMS_ITS | Encounter Summary ---
Author Organization [facility] Address [address] [place] [address] Care Team Providers Care Community Nurse Name Role Phone Emigdio Veronica MD Primary Care Provider + Reason for Referral * Radiology Services (Routine) - Closed Specialty Diagnoses / Procedures Referred By Serene huitron Referred To Contact Diagnoses Flank pain Procedures XR ABDOMEN 1 VIEW Lon Ortez MD Phone: tel: fax: Referral ID Status Reason Start Date Expiration Date Visits Re quested Visits Authorized [id number] Closed 12/09/2020 1 1 Reason for Visit * Radiology Services (Routine) - Closed Specialty Diagnoses / Procedures Referred By Serene huitron Referred To Contact Diagnoses Flank pain Procedures XR ABDOMEN 1 VIEW Lon Ortez MD Phone: tel: fax: Referral ID Status Reason Start Date Expiration Date Visits Re quested Visits Authorized [id number] Closed 12/09/2020 1 1 Encounter Details Date Type Department Care Team (Latest Contact Info) Description 12/09/2020 12:29 EST - 12/09/2020 23:59 EST Hospital Encounter [facility] Radiology Xray Outpatient - [facility] [address] [place] [address] Flank pain Discharge Disposition: Home or Self Care [...] 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 1 cephalexin (KEFLEX) 500 mg capsule Take 1 Cap by mouth 2 times daily for 10 days. 20 Cap 12/04/2020 1 docusate sodium (COLACE) 100 mg capsule TAKE 1 CAPSULE BY MOUTH TWICE A DAY 60 Cap 11 09/01/2020 1 ERGOCALCIFEROL, VITAMIN D2, (VITAMIN D ORAL) Take by mouth. 1 ferrous gluconate (FERGON) 324 mg (38 mg iron) tablet Take 324 mg by mouth daily with breakfast. 1 furosemide (LASIX) 40 mg tablet Take 2 Tabs by mouth daily. 90 Tab 3 08/01/2020 1 hydrOXYzine (ATARAX) 25 mg tablet TAKE 1 TABLET BY MOUTH AT BEDTIME NEEDED 11/17/2020 1 levothyroxine (SYNTHROID) 25 mcg tablet Take 1 Tab by mouth daily. Unknown dose 90 Tab 3 11/03/2020 1 LUSUTROMBOPAG ORALIndications: Cleaning Professional prescribed -- 7 day course prior to 12/03/2020 Dr. Ortez surgery Take 3 mg by mouth daily. 1 magnesium oxide (MAG-OX) 400 mg (241.3 mg magnesium) tablet Take 1 Tab by mouth daily. 200 Tab 1 09/05/2020 1 ondansetron (ZOFRAN) 4 mg tablet Take [...] 3 times daily as needed for Pain. 30 Tab 12/04/2020 1 predniSONE (DELTASONE) 20 mg tablet TAKE [...] HFA aerosol inhaler inhalerIndicatio ns:COPD with asthma ([facility]) Inhale 2 Puffs as directed daily. 1 Inhaler 11 06/20/2020 1 TAMSulosin (FLOMAX) 0.4 mg capsule Take 2 Caps by mouth at bedtime for 10 days. 20 Cap 12/04/2020 1 documented as of this encounter Discharge Disposition Disposition Code Departure Means Destination Home or Self Care documented in this encounter Plan of Treatment Upcoming Encounters Date Type Department Care Team (Late st Contact Info) Description 01/04/2025 13:[address] [facility] Ophthalmology - [address] [phone] Gagandeep Rome MD [address] [place] [address] 5 [place] [address] 02/11/2025 13:30 EDT Telemedicine [facility] Hematology & Oncology [address] [phone] Dana Padilla MD [address] [place] [address], [facility] 2 [place] [address] documented as of this encounter Procedures Procedure Name Priority Date/Time Associated Diagnosis Comments XR ABDOMEN 1 VIEW Routine 12/09/2020 12: 50 EST Flank pain documented in this encounter Results * XR ABDOMEN 1 VIEW (12/09/2020 12:50 EST) Anatomical Region Laterality Modality Body Computed Radiogr aphy 12/09/2020 13:0 8 EST Narrative 12/09/2020 13:08 EST XR ABDOMEN 1 VIEW ??12/09/2020 12:30 PM Clinical History/Comments: left kidney stone. Findings: One view abdomen Left-sided ureteral stent is noted. The distal pigtail is not of the film and may be through the patient's urethra No calcifications are noted along the path of the left-sided ureteral stent. Splenomegaly is noted Procedure Note Jayden Whitlock MD - 12/09/2020 XR ABDOMEN 1 VIEW 12/09/2020 12:30 PM Clinical History/Comments: left kidney stone. Findings: One view abdomen Left-sided ureteral stent is noted. The distal pigtail is not of the filmand may be through the patient's urethra No calcifications are noted along the path of the left-sided ureteralstent. Splenomegaly is noted us Lon Ortez MD [facility] Final Result documented in this encounter Visit Diagnoses Diagnosis Flank pain Abdominal pain, unspecified site documented in this encounter Care Teams Community Nurse Relationship Specialty Start Date End Date Emigdio Veronica MD [address] [place] [phone] PCP - General Internal Medicine - Primary Care 05/22/20 02/21/24 documented as of this encounter
--- OUTSIDE RECORDS SUMMARY | 2024-11-22 17:19 | XMS_ITS | Encounter Summary ---
Author Organization [facility] Address [address] [place] [address] Care Team Providers Care Mobile Lounge Driver Name Role Phone Emigdio Veronica MD Primary Care Provider + Reason for Visit * Reason Onset Date Comments Discuss Surgery 12/01/2020 Encounter Details Date Type Department Care Team (Late st Contact Info) Description 12/01/2020 Telephone [facility] Urology - [place] [address] [place] [address] Lon Ortez MD [address] 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 The patient was instructed to check in at 10:15 for a procedure at 12:15 on 12/03/20. You will need a regional tanker truck driver. Prep for Surgery: 1) Have no solid food or liquids containing fats, including milk, after midnight before your procedure 2) On the day of your procedure, you should have only water or other clear liquids until 3 hours before the scheduled time of your procedure. Patient will have a urine culture completed today at [facility]. An order has been faxed. documented in this encounter Plan of Treatment Upcoming Encounters Date Type Department Care Team (Late st Contact Info) Description 01/04/2025 13:00 EST Office Visit [facility] Ophthalmology - [address] [phone] Gagandeep Rome MD [address] [place] [address], [facility] 5 [place] [phone] 02/11/2025 13:30 EDT Telemedicine [facility] Hematology & Oncology [address] [phone] Dana Padilla MD [address] [place] [address], [facility] 2 [place] [address] documented as of this encounter Visit Diagnoses Not on filedocumented in this encounter Care Teams Mobile Lounge Driver Relationship Specialty Start Date End Date Emigdio Veronica MD [address] [place] [phone] PCP - General Internal Medicine - Primary Care 05/22/20 02/21/24 documented as of this encounter
--- OUTSIDE RECORDS SUMMARY | 2024-11-22 17:19 | XMS_ITS | Encounter Summary ---
Author Organization [facility] Address [address] [place] [address] Care Team Providers Care Lockstitch Machine Operator Name Role Phone Emigdio Veronica MD Primary Care Provider + Reason for Visit * Reason Onset Date Comments Orders (Non Pre-visit) 12/04/2020 Encounter Details Date Type Department Care Team (Late st Contact Info) Description 12/04/2020 Orders Only [facility] Urology - [address] [address] Hardik Vargas, DO [address] [facility], [facility] [address] [place] [phone] Pre-op testing (Primary Dx) Social History Tobacco Use Types [...] Industry 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 No / Unsure 12/03/2020 10:03 EST documented as of this encounter Functional [...] Office Visit [facility] Ophthalmology - [address] [id number] Gagandeep Rome MD [address] [place] [address] [address] [place] [phone] 02/11/2025 13:30 EDT Telemedicine [facility] Hematology & Oncology - [address] [phone] Dana Padilla MD [address] [place] [address], [facility] [address] [place] [phone] documented as of this encounter Visit Diagnoses Diagnosis Pre-op testing- Primary Preoperative examination, unspecified documented in this encounter Care Teams Lockstitch Machine Operator Relationship Specialty Start Date End Date Emigdio Veronica MD [address] [place] [phone] PCP - General Internal Medicine - Primary Care 05/22/20 02/21/24 documented as of this encounter
--- OUTSIDE RECORDS SUMMARY | 2024-11-22 17:19 | XMS_ITS | Encounter Summary ---
Author Organization [facility] Address [address] [place] [address] Care Team Providers Care Muffler Installer Name Role Phone Emigdio Veronica MD Primary Care Provider + Reason for Visit * Auth/Cert Specialty Diagnoses / Procedures Referred By Serene huitron Referred To Contact Diagnoses Nephrolithiasis Procedures MT CYSTO/URETERO W/LITHOTRIPSY &INDWELL STENT INSRT Cystoscopy, left ureteroscopy with laser lithotripsy, left retrograde pyelogram, left JJ stent insertion Referral ID Status Reason Start Date Expiration Date Visits Re quested Visits Authorized [id number] 11/11/2020 1 1 Encounter Details Date Type Department Care Team (Late st Contact Info) Description 12/03/2020 12:14 EST Anesthesia Event [facility] [place] [facility] [address] [place] [phone] Andrea Hamm MD [address] [place] [phone] Jeffrey Zamudio CRNA [address] [phone] Anesthesia Record Procedure Summary Procedure Name Responsible Anesthesiologist Anesthesia Start Time Anesthesia Stop Time Cystoscopy, left ureteroscopy left retrograde pyelogram, left JJ stent insertion (Left: Ureter) Andrea Hamm MD 12/03/20 1214 12/03/20 1259 Events Date Time Event Comment 12/03/2020 1214 An Start The patient was re-evaluated immediately before moderate or deep sedation use, before anesthesia induction, or before the anesthesia procedure. 1214 An Start Data 1222 An Induction The patient was reevaluated immediately before moderate or deep sedation use and before anesthesia induction. 1222 Anesthesia Ready 1251 an stop data 1259 Handoff to RN I completed my handoff to the receiving nurse during which we: 1. Identified the patient 2. Identified the responsible provider 3. Reviewed the pertinent medical history 4. Discussed the surgical course 5. Reviewed intra-op anesthesia management and issues during anesthesia 6. Set expectations for post-procedure period 7. Allowed opportunity for questions and acknowledgement of understanding. 1259 An Stop Meds Name Total fentanyl citrate (PF) injection 100 mcg lidocaine 2% (PF) injection glass vial 6 0 mg midazolam 1 mg/mL 2 mL vial 2 mg propofol (DIPRIVAN) 500 mg in 50 mL infu cornel 236,376 mcg ceFAZolin (ANCEF) syringe 2 g 2,000 mg ondansetron (PF) (ZOFRAN) injection 4 mg lactated ringers (LR) infusion 700 mL * Agents Name O2 N2O Air * Blood No blood administrations on file. 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 [facility] Vit[facility] Value Taken Time BP 90/47 12/03/20 1256 Temp 36.1 12/03/20 1259 Resp 13 12/03/20 1259 Pulse From Oximetry 75 BPM 12/03/20 1259 SpO2 100 % 12/03/20 1259 Vitals shown include unvalidated device data. Last Pain Score - Numeric Pain Level (Scale 1-10): 8 Type of Anesthesia - MAC Anesthesia Post Evaluation Level of consciousness: alert and oriented and awake Temperature status: normothermia Respiratory status: airway patent and nasal cannula Cardiovascular status: acceptable, appropriate for condition and stable Hydration status: adequate Nausea/Vomiting: none Post-Op Assessment: patient tolerated procedure well with no complications and patient satisfied with anesthesia care Patient participation: able to participate Disposition: inpatient Anesthesia Complications: No apparent anesthesia complications * Anesthesia Preprocedure Evaluation - Andrea Hamm MD - 12/03/2020 1217 EST Anesthesia Preprocedure Evaluation Patient Medical History, including Anesthesia History reviewed. Chart and Nursing Notes reviewed, including NPO status and Medication History. Additional ROS/History Findings: 60yo fenale with PMH significant for COPD (on 2LPM O2 at night, completed steroid taper a week and a half ago), QUIROZ, cirrhosis, chronic thrombocytopenia (platelets= 68 today) presenting for cystoscopy with stent placement. Allergies Allergen Reactions ??? Morphine Anaphylaxis ??? [...] Date ??? Anemia ??? Anxiety ??? Asthma 12/02/2020 - mild persistent - see dr. Veronica 11/20/2021 ??? Bleeding disorder (HCC-CMS) ??? Bursitis right shoulder ??? C. difficile colitis 07/25/2015 Hospitalized after kidney stone removal ??? Chronic ITP (idiopathic thrombocytopenia) (HCC-CMS) 12/02/2020 - see 11/20/2020 Dr. Veronica H&P, (managed by Client Support Professional - plans lusutromboopag ( plt boosting med) 7 days prior to surgery ??? Chronic kidney disease ??? Cirrhosis of liver (HCC-CMS) ??? Clotting disorder (HCC-CMS) ??? COPD exacerbation (HCC-CMS) 04/26/2020 ??? Depression ??? Drug-seeking behavior Per Dr Amelia Tijerina and notes from [facility] patient misconstrued information to several providers about multiple concurrent opiate prescriptions ??? Environmental allergies ??? GERD (gastroesophageal reflux disease) ??? Heartburn ??? Hemorrhagic disorder (HCC-CMS) ??? History of general anesthesia ??? History of kidney stones 12/02/2020 - left sided - confirmed by pt ??? History of nephrolithiasis 12/02/2020 - w/ severe left flank pain/possible left mid ureteral stone - see Dr. Ortez note 11/27/2020 ??? History of peripheral edema 12/02/2020 - bilateral leg edema - see 11/20/2020 Dr. Benoit H&P ??? Hypersplenism syndrome ??? Hypersplenism syndrome 12/02/2020 Dr. Veronica H&P 11/20/2020 ??? Hypothyroidism ??? Joint replaced 199912/02/2020 nya knees - see Dr. Veronica H&P 11/20/2021 ??? QUIROZ (nonalcoholic steatohepatitis) 12/02/2020 see 11/20/[address] Veronica ??? Oxygen dependent 12/02/2020 2 L O2 via NC @ night - per pt ??? Rheumatoid arthritis ??? Shortness of breath 12/02/2020 - treating w/ steroids - see dr. Veronica H&P 11/20/2020 ??? Sleep apnea ??? Thrombocytopenia (HCC-CMS) 12/02/2020 - confirmed by mt ??? Thyroid disease Relevant Problems Anesthesia (+) HUEY (obstructive sleep apnea) PULMONARY (+) Dyspnea (+) Mild persistent asthma without complication (+) HUEY (obstructive sleep apnea) CARDIOVASCULAR (+) Splenic vein thrombosis /Renal (+) Cirrhosis of liver (HCC-CMS) (+) Nephrolithiasis ENDO/GI (+) Hypothyroidism Other (+) Hypersplenism syndrome (+) Splenic vein thrombosis Physical Exam Airway Mallampati: III TM distance: <3 FB Neck ROM: full Cardiovascular Rhythm: regular Rate: normal Dental Comments: edentulous Pulmonary (+) wheezes Abdominal (+) obese Anesthesia Plan ASA 4 Anesthesia Type - MAC Anesthesia plan and risks discussed. Informed consent obtained from patient. Specific risks discussed were nausea, vomiting, myocardial infarction, stroke and . PAT Note (Notes from 11/03/20 through 12/03/20) No notes of this type exist for this encounter. documented in this encounter Plan of Treatment Upcoming Encounters Date Type Department Care Team (Late st Contact Info) Description 01/04/2025 13:00 EST Office Visit [facility] [place] [address] Gagandeep Rome MD [address] [place] [address], [address] [place] [phone] 02/11/2025 13:30 EDT Telemedicine [facility] Hematology & Oncology - [facility] [address] [place] [address] Dana Padilla MD [address] [facility], [facility], [address] [place] [phone] documented as of this encounter Visit Diagnoses Not on filedocumented in this encounter Administered Medications Inactive Administered Medications - up to 3 most recent administrations Medication Order MAR Action Action Date Dose Rate Site ceFAZolin (ANCEF) syringe 2 g 2 g, intravenous, Administer over 10 Minutes, PRE-OP ONCE, 1 dose, On Tue12/03/20 at 1130, Type of Therapy: Prophylaxis, Suspected Indication (Select all that apply): Surgical prophylaxis, Routine, Preprocedure Given 12/03/2020 12:22 EST 2,000 mg fentaNYL citrate (PF) injection PRN, Starting on Tue12/03/20 at 1221, Until Tue12/03/20 at 1259, Routine, Anesthesia Intraprocedure Given 12/03/2020 12:55 EST 50 mcg Given 12/03/2020 12:28 EST 25 mcg Given 12/03/2020 12:21 EST 25 mcg lactated ringers (LR) infusion 30 mL/hr, intravenous, CONTINUOUS, Starting on Tue12/03/20 at 1130, Until Tue12/03/20 at 1334, Routine, Preprocedure Continued by Anesthesia 12/03/2020 12:23 EST New Bag 12/03/2020 11:03 EST 30 mL/hr 30 mL/hr lidocaine (PF) 20 mg/mL (2 %) injection PRN, Starting on Tue12/03/20 at 1221, Until Tue12/03/20 at 1259, Routine, Anesthesia Intraprocedure Given 12/03/2020 12:21 EST 60 mg midazolam (PF) (VERSED) injection PRN, Starting on Tue12/03/20 at 1212, Until Tue12/03/20 at 1259, Routine, Anesthesia Intraprocedure Given 12/03/2020 12:12 EST 2 mg ondansetron (PF) (ZOFRAN) injection PRN, Starting on Tue12/03/20 at 1259, Until Tue12/03/20 at 1302, Routine, Anesthesia Intraprocedure Given 12/03/2020 12:59 EST 4 mg propofol (DIPRIVAN) 500 mg in 50 mL infusion FA IP EQF CONTINUOUS PRN FOR ONE STEP MEDS, Starting on Tue12/03/20 at 1220, Until Tue12/03/20 at 1259, Routine, Anesthesia Intraprocedure Rate Change 12/03/2020 12:27 EST 130 mcg/kg/min 73.2 mL/hr New Bag 12/03/2020 12:20 EST 100 mcg/kg/min 56.3 mL/hr documented in this encounter Care Teams Muffler Installer Relationship Specialty Start Date End Date Emigdio Veronica MD [address] [place] [phone] PCP - General Internal Medicine - Primary Care 05/22/20 02/21/24 documented as of this encounter
--- OUTSIDE RECORDS SUMMARY | 2024-11-22 17:19 | XMS_ITS | Encounter Summary ---
Author Organization [facility] Address [address] [place] [address] Care Team Providers Care Critical Care Technician Name Role Phone Emigdio Veronica MD Primary Care Provider + Reason for Visit * Auth/Cert Specialty Diagnoses / Procedures Referred By Serene huitron Referred To Contact Diagnoses Nephrolithiasis Procedures [place] CYSTO/URETERO W/LITHOTRIPSY &INDWELL STENT INSRT Cystoscopy, left ureteroscopy with laser lithotripsy, left retrograde pyelogram, left JJ stent insertion Referral ID Status Reason Start Date Expiration Date Visits Re quested Visits Authorized [id number] 11/11/2020 1 1 Encounter Details Date Type Department Care Team (Late st Contact Info) Description 12/03/2020 10:03 EST - 12/04/2020 13:46 EST Hospital Encounter [facility] [address] [place], [place] [id number] Lon Ortez MD [address] 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 No / Unsure 12/03/2020 10:03 EST documented as of this encounter Last Filed Vital Signs Vital Sign Reading Time Taken Comments Blood Pressure 104/52 12/04/2020 0628 EST Pulse - - Temperature 36.1 ??C (97 ??F) 12/04/2020 0628 EST Respiratory Rate 16 12/04/2020 0628 EST Oxygen Saturation 96% 12/04/2020 0628 EST Inhaled Oxygen Concentration - - Weight 93 kg (205 lb) 12/03/2020 1526 EST Height 162.6 cm (5' 4) 12/03/2020 1526 EST Body Mass Index 35.19 12/03/2020 1526 EST documented in this encounter Functional Status [...] Adria Hernandez RN documented in this encounter Discharge Instructions * Discharge Instructions* Rc Anne MD - 12/03/2020 13:35 EST Diet: Resume preoperative diet Activity: Activity as tolerated It is normal to have pain associated with the ureteral stent. This pain may be worse with activity or movement. Driving: No driving while taking narcotic pain medication Skin/Wound Care: Resume normal skin care. Bathing: No restrictions Pending Results: Urine culture Symptoms to Call Your Doctor About: ??? Burning with urination ??? Chest pain ??? Increased blood in urine ??? Pain unrelieved by medication ??? Shortness of breath ??? Temperature greater than 101 degrees F ??? Urinary retention Appointments: Follow up procedure: Left laser lithotripsy in the OR with Dr. Ortez in 1-2 weeks. Our office will call in the next few days to confirm an appointment time. If you do not hear from us in one week, please call [facility], . Future Appointments Date Time Provider Department Center 12/15/2020 13:15 Emigdio Veronica MD [facility] 12/17/2020 9:30 Starr Paige MD EP2 Hem/Onc [facility] 12/29/2020 10:00 Micheal Moseley MD [facility] None 12/29/2020 14:30 Emigdio Veronica MD [facility] 03/13/2021 9:30 Starr Paige MD EP2 Hem/Onc [facility] What can I expect from having a ureteral stent? Most individuals find that having a ureteral stent after surgery for kidney stones can be irritating but is nothing like the pain of having a kidney stone. Most are able to go back to work without restrictions. Patients usually described being able to ???feel?? the stent in place when bending, lifting or twisting. This is common. You may experience flank and groin pain from the stent. After the procedure, you will be prescribed a number of medications that may help with this pain. Some medications work better for stent pain in certain people than others, so it is important to find a regimen that works for you. It is important to keep taking qkrb-lom-rhmeimj Tylenol (acetaminophen) and ibupr ofen unless your doctor has recommended against taking these medications. Because of how the stent sits in your bladder, it may cause feelings of having to urinate more thanyou usually do. There may be some mild burning with urination. It can also cause blood in the urine(hematuria). Blood in the urine is like food coloring: It only takes a few drops to make it look bright red. You may notice anywhere from light pink clear urine to something resembling Neymar- Aid. Thisis common and can be expected from the stent. Blood in the urine can go away and then come back spontaneously while the stent is in place. Increase the amount of water you are drinking and make sure you stay hydrated. Please call us if you start passing clots in your urine greater than a dime to quarter in size. You may also notice pain in your flank when you urinate. This is because the stent allows urine to travel back up to the kidney and can cause kidney irritation. This will resolve when the stent is removed. Irritation from the stent can persist even after the stent has been removed. This is because removal of the stent can cause temporary swelling of the tube (ureter) connecting the kidneys to the bladder. This usually resolves within 6 hours after the stent has been removed. If it continues please give us a call. How long will the stent remain in my body? You still have a stone, the stent is relieving the obstruction. This stent will have to stay until your follow up procedure, where it is often replaced with a new stent. That new stent will remain inplace for approximately 7-10 days. It will be removed in the office. The procedure to remove it does not require any anesthesia and takes about 1 minute. A flexible camera scope is placed into the bladder allowing the surgeon to see the stent and remove it. This is generally extremely well tolerated. What are things to look out for? Please call us if you experience any of the following: ? ? Urinary retention (no urination for >6 hours) ??? Fever greater than 101.5 F ??? Passing clots larger than a dime, or dark purple urine that resembles grape juice ??? Pain that is not controlled by medications provided ??? Significant pain not controlled by medications lasting more than 6 hours after stent removal [facility]: documented in this encounter Medications at Time [...] 90 Tab 3 11/03/2020 1 LUSUTROMBOPAG ORALIndications: Impregnator And Drier Helper prescribed -- 7 day course prior [...] needed for Pain. Daily Max: 30 mg 5 Tab 12/04/2020 1 oxyCODONE (ROXICODONE) 5 mg immediate release tablet Take 1 Tab by mouth 2 times daily as needed for Pain. Daily Max: 10 mg 20 Tab 12/01/2020 1 phenazopyridine (PYRIDIUM) 200 mg tablet Take [...] HFA aerosol inhaler inhalerIndicatio ns:COPD with asthma ([facility]) Inhale 2 Puffs as directed daily. 1 Inhaler 11 06/20/2020 1 TAMSulosin (FLOMAX) 0.4 mg capsule Take 2 Caps by mouth at bedtime for 10 days. 20 Cap 12/04/2020 1 documented as of this encounter Ordered Prescriptions Prescription Sig Dispense Quantity Refills Last Filled Start Date End Date oxyCODONE (ROXICODONE) 5 mg immediate release tablet Take 1 Tab by mouth every 4 hours as needed for Pain. Daily Max: 30 mg 5 Tab 12/04/2020 1 cephalexin (KEFLEX) 500 mg capsule Take 1 Cap by mouth 2 times daily for 10 days. 20 Cap 12/04/2020 1 phenazopyridine (PYRIDIUM) 200 mg tablet Take 1 Tab by mouth 3 times daily as needed for Pain. 30 Tab 12/04/2020 1 TAMSulosin (FLOMAX) 0.4 mg capsule Take 2 Caps by mouth at bedtime for 10 days. 20 Cap 12/04/2020 1 phenazopyridine (PYRIDIUM) 200 mg tablet Take 1 Tab by mouth 3 times daily as needed for Pain. 30 Tab 12/04/2020 1 TAMSulosin (FLOMAX) 0.4 mg capsule Take 2 Caps by mouth at bedtime for 10 days. 20 Cap 12/04/2020 1 cephalexin (KEFLEX) 500 mg capsule Take 1 Cap by mouth 2 times daily for 10 days. 20 Cap 12/04/2020 1 documented in this encounter Discharge Disposition Disposition Code Departure Means Destination Home or Self Senior Care documented in this encounter Progress Notes * Mere Richard, LOGISTICS AND PLANNING MANAGER - 12/04/2020 1021 EST Initial Case Management/Social Work Assessment and Discharge Plan/Readmission Risk Assessment REASON FOR ADMISSION: Nephrolithiasis Patient understands reason for admission: Yes PATIENT CONTACT INFO VERIFIED: Yes PATIENT ADDRESS VERIFIED: Yes Type of housing (single family, condo, apartment, usp, single room occupancy, [facility] funded hotel room, group fpc) - Single family Who does the patient live with? Fiance Does the patient have access to their own bedroom/bathroom/kitchen - or is it shared with others? Shared with fiance Name of housing complex (ex [facility], [facility], etc)- n/a Housing Authority/Managing Organization - n/a Community Care Providers (case sealer, [facility] nurse, etc) name and contact information- n/a LIVING ARRANGEMENTS AND ACCESSIBILITY ISSUES: Living Arrangements: Private residence, Spouse / significant other Levels: 1 Stairs to enter: 2 Handicap access: None Bathroom located on bedroom level?: Yes What in home social supports are available to the patient? Spouse / significant other Is 24/ care available? Yes ADVANCED DIRECTIVES, POA &/or COLST IN PLACE: Healthcare Directive: No, patient does not have advance directive for healthcare treatment Information Provided on Healthcare Directives: No Information on Healthcare Directives Requested: No DIRECTIVES FOR FINANCES: Directive For Finances: No TRANSPORTATION: Transportation: Family CULTURAL, ORIENTAL ORTHODOX and/or LANGUAGE factors affecting health care/discharge planning: Spiritual/Cultural Requests: None Any factors affecting health care/discharge planning?: No Insurance in Place: Yes Medical Insurance: Yes Type of insurance: Medicare, Medicaid Medicare type: A, B Medicaid Type: Community Referred to patient financial services: No Nutrition: DISCHARGE RISK ASSESSMENT: None of the above risks identified Total # selected above: Score: Zero Tentative plan to address the risk of re-hospitalization for those at HIGH MODERATE RISK: Bring risk factors to attention of team to be addressed;Early inpatient rehab therapy or other consultation(s);Refer to skilled home care services RAPT TOOL: [...] Home Health Services: None DME Provider: Pharmacy: [facility]/pharmacy #[id number] - [place], [place] - [address] [place] [address] [place] [address] [facility] ([facility] - [address] [address] [id number] - [place], [place] - [address] [facility] [address] [facility] [address] [facility] [address] [facility] [address] Home Health: Other: POST HOSPITAL TRANSITION PLAN: Tara Yun is 60 y/o female who was admitted to [facility] for renal colic 2/2 obstructing nephrolithiasis. Tara resides with her fiance in a single story home with 2 stairs to enter. She is independent with ADLs and ambulatory without assistance at baseline. She did not have any services prior to admission. Tara' eric works here at [facility] and will be able to drive her home when discharged. She has been enrolled in meds to beds. She has no new skilled needs for discharge. No further CM needs. PAM Melchor, ERASMO Ext [phone] Pager #[phone] * Felice Givens MD - 12/04/2020 0609 EST Urology Progress Note Dx: Renal colic [...] IR ??? Abx: 24 hours anceff ??? ENTRY OPERATOR Meds o Continue: Albuterol Q4P, Lasix 80/d, synthroid, spironolactone, symbicort 160- 4.5 x2 QAM (Given dulera) ??? Diet: reg ??? Activity as tolerated ??? Encourage IS ??? Anticoagulation: none Dispo Planning ??? ELEAZAR: today ??? Follow up: left ureteroscopy with laser lithotripsy, TBD Future Appointments Date Time Provider Department Center 12/10/2020 9:10 [facility] PAT CALL ROOM 4 [facility] None 12/15/2020 13:15 Emigdio Veronica MD [facility] 12/17/2020 9:30 Starr Paige MD EP2 Hem/Onc [facility] 12/29/2020 10:00 Micheal Moseley MD [facility] None 12/29/2020 14:30 Emigdio Veronica MD [facility] 03/13/2021 9:30 Starr Paige MD EP2 Hem/Onc [facility] FELICE GIVENS MD 12/04/2020 6:09 Weekdays from 7AM-5PM page [phone] with questions. For weekends and all other times, please page through PAS Cosigned by Lon Ortez MD at 12/04/2020 8:46 EST Associated attestation - Lon Ortez MD - 12/04/2020 0846 EST Attestation: I saw and examined the patient on 12/04/2020. I agree with the resident's findings and plans. * Dom Perera, RT - 12/03/2020 1615 EST Images from the original note were not included. Respiratory Consult/Progress Note Indications for Respiratory therapy: asthma home meds Data Vitals: Heart Rate: 68 BPM, Resp: 16, SpO2: 98 % FIO2/O2 Device: , , O2 Device: None, RT Orders: 0630 mometasone-formoterol (DULERA) 200-5 mcg/actuation inhaler 2 Puff ?Discontinue -- Dispensed INHALATION DAILY 12/03/20 1506 12/03/20 1506 albuterol (ACCUNEB) nebulizer solution 2.5 mg ?Discontinue Note to Pharmacy: PTASig:USE 1 VIAL VIA NEBULIZ... -- Verified NEBULIZATION EVERY 6 HOURS PRN 12/03/20 1506 12/03/20 1506 albuterol inhaler 180 mcg ?Discontinue Note to Pharmacy: ENTRY OPERATOR Sig:Inhale 2 Puffs as dire... -- Verified INHALATION EVERY 4 HOURS PRN 12/03/20 1506 Protocol Scoring: Bronchodilator/Inhalation Therapy Frequency Bronchodialator - Clinical Indications: Home regimen Breath Sounds: Clear Response: No change / no treatment Pulse: <100 Resp Rate: <18 SOB: None Total Score: 0 Airway Clearance Therapy Frequency Airway Clearance - Clinical Indications: No clinical indications Breath Sounds: Clear / diminished Sputum: Small (tsp) / None Consistency: None Color: None Hyperinflation Therapy Frequency Hyperinflation - Clinical Indications: No clinical indications Breath Sounds: Clear Surgery: No X-Ray / Atelectasis: No O2 Requirements: O2 at baseline Mobility Status: Mobile / at baseline Total: 0 Action/Events Respiratory events; eval done with MDI/spacer education RT TAWANA 12/03/20 * Rivera Wallace RN - 12/03/2020 1123 EST Preop Covid DOS screening questionnaire Please document by exception (only check those that apply). Have you had any of the following symptoms recently? Yes Chronic ? Cough Shortness of breath or difficulty breathing X- COPD Fever Chills Fatigue Muscle or body aches Severe Headache New loss of taste or smell Sore throat Congestion or runny nose Rash Nausea, vomiting, or diarrhea (rare in adults. More common in children) Were you covid tested? yes When: 11/29/2020 Results: negative If yes, have you self-isolated/quarantined since your test? yes See admission vital signs documentation for admission temperature. * Zeina Wasserman RN - 12/02/2020 1307 EST COVID 19 Screening Perioperative at time of PAT Please document by exception (only check those that apply). Have you had any of the following symptoms recently? Yes Yes Chronic ? Cough Shortness of breath or difficulty breathing X COPD Fever Chills Fatigue Muscle or body aches [...] who has been diagnosed with Covid 19? No (close contact, within 6 feet of any [...] instruct them to call us back at [phone] to report symptoms (If patient is in Surgical Admissions and answers yes, please notify Surgery and Anesthesia team). Follow proper precautions- yellow mask to patient/family. Visitor Policy: -IP or OP PeriOp visitors: ??? One non sick visitor may accompany patient to surgical wait area ??? No visitors to PreOp or PACU o Exceptions: special needs and pediatrics ??? Support person can remain with the patient until they are called to Preop ??? The support person has the choice to leave at that time and get a phone update from the surgeonor remain in the surgical waiting area for an in person update from the surgeon in one of our consult rooms ??? Once they have been updated by the surgeon, they may exit the building for inpatients. Outpatient visitor can wait in the surgical wait area until patient is ready for discharge. -IP: Inpatient unit: ??? No visitors at this time -Pediatric patient: ??? One parent can come with child DOS, and is allowed with child in PreOp/PACU ??? Due to COVID 19 no parents are allowed to go back to OR. ??? Pediatric inpatients: one caregiver at bedside and one overnight -Children under age of 16 y.o. are not permitted. -Only ADA service animals are permitted into the hospital. All other animals, including previously approved therapy/support animals, are not allowed at this time. (No animals will be allowed into Preop, OR, or PACU) documented in this encounter H&P Notes * Rc Anne MD - 12/03/2020 1030 EST The preoperative history and physical which was performed within 30 days of this procedure has been reviewed and the clinically appropriate elements of the physical examination have been repeated. There are no changes to the documented history and physical or if so such changes are documented below Rc Anne MD 12/03/2020 10:30 Plts 68 Consent in chart No marking necessary Abx ordered Ready for surgery Cosigned by Lon Ortez MD at 12/03/2020 10:38 EST Source Note - Emigdio Veronica MD - 11/20/2020 13:15 EST Preoperative H&P Date of Service: 11/20/2020 Chief Complaint: Chief Complaint Patient presents with ??? Pre-op Exam Pre-op 12/03/[address] Lon Ortez ??? Post-ED Follow Up Swelling in legs ??? Immunizations flu shot done and chart Planned Procedure: left ureteroscopy with laser lithotripsy Surgeon: Lon Ortez MD Planned Procedure Date: 12/03/2020 Problem List Available or Initiated: yes HISTORY OF PRESENT ILLNESS: Tara Yun is a 60 y.o., female with a PMH of nephrolithiasis, QUIROZ, chronic pain, COPD who presents for a pre-operative physical for a planned left ureteroscopy and lithotripsy for nephrolithiasis. She also notes recent ED presentation at [facility] for shortness of breath and bilateral leg edema and pain. Per outside records she was determined to have trace edema in her legs, a negative [place] ultrasound ofboth legs, normal labs and a CXR that did not demonstrate any evidence of pleural edema or consolidation. She was ultimately discharged on a four day course of prednisone for a presumed COPD exacerbation. She states her pain is a 8/10 today. She confirms both of her legs are still swollen and tender. She reports she has been unable to wear her regular shoes due to the pain with any form of compressionon her feet. She also notes left sided flank pain related to her kidney stone. She notes compliancewith her flomax, spirolactone and lasix, but also confirms hydrating aggressively for her kidney stone. She does state that the oxycodone we prescribed has helped take the edge off of her pain. Due to her chronic thrombocytopenia she has been in touch with her lacquer sizer on her upcoming surgery and is planning to receive a seven day course of lusutrombopag a platelet boosting medication prior to her surgery. She does confirm ongoing shortness of breath that has only mildly improved with oral steroids. She notes compliance with her Symbicort, incruse elliptica and albuterol and states that she is using the albuterol nebulizer multiple times a day. She has one day left of her prednisone at 60 mg daily. Together we reviewed her surgical and procedural history: Prior history of anesthetic complications: no Prior history of bleeding problems: yes, chronic thrombocytopenia Prior history of DVT/PE: no, but history of splenic vein thrombosis, now resolved Prior history of infections (VRE, MRSA): no Reaction to tape or latex: no Family history of anesthetic complications, bleeding problems or DVT/PE: yes. Father has history ofDVT Cardiovascular or pulmonary risk factors: asthma or COPD Active Problem List Patient Active Problem List Diagnosis ??? Pancytopenia (HCC-CMS) ??? Mild persistent asthma without complication ??? Drug-seeking behavior ??? Hypersplenism syndrome ??? Splenic vein thrombosis ??? Hematuria, gross ??? Chronic back pain ??? Cirrhosis of liver (HCC-CMS) ??? Obesity, Class II, BMI 35-39.9 ??? Hypothyroidism ??? Abdominal wall hernia ??? Allergic rhinitis ??? Partial small bowel obstruction (HCC-CMS) ??? HUEY (obstructive sleep apnea) ??? Dyspnea ??? Nephrolithiasis PMH PSH Past Medical History: Diagnosis Date ??? Anemia ??? Anxiety ??? Asthma ??? Bleeding disorder (HCC-CMS) ??? Bursitis right shoulder ??? C. difficile colitis 07/25/2015 Hospitalized after kidney stone removal ??? Chronic kidney disease ??? Cirrhosis of liver (HCC-CMS) ??? Clotting disorder (HCC-CMS) ??? COPD exacerbation (HCC-CMS) 04/26/2020 ??? Depression ??? Drug-seeking behavior Per Dr Amelia Tijerina and notes from [facility] patient misconstrued information to several providers about multiple concurrent opiate prescriptions ??? Environmental allergies ??? GERD (gastroesophageal reflux disease) ??? Heartburn ??? Hemorrhagic disorder (HCC-CMS) ??? Hypersplenism syndrome ??? Rheumatoid arthritis ??? Thyroid disease Past Surgical History: Procedure Laterality Date ??? APPENDECTOMY ??? BONE MARROW BIOPSY ??? CHOLECYSTECTOMY ??? GASTRIC FUNDOPLICATION ??? HERNIA REPAIR ??? HYSTERECTOMY ??? JOINT [...] ??? Clotting Disorder Father ??? Diabetes Brother Medications Current Outpatient Medications Medication Sig Dispense Refill [...] breakfast. ??? furosemide (LASIX) 40 mg tablet Take 2 Tabs by mouth daily. 90 Tab 3 ??? levothyroxine (SYNTHROID) 25 mcg tablet Take 1 Tab by mouth daily. Unknown dose 90 Tab 3 ??? [START ON 11/23/2020] lusutrombopag 3 mg tablet Take 3 mg by mouth daily for 7 days. 7 Tab 0 ??? magnesium oxide (MAG-OX) 400 mg (241.3 mg magnesium) tablet Take 1 Tab by mouth daily. 200 Tab 1 ??? ondansetron (ZOFRAN) 4 mg tablet TAKE 1 TAB BY MOUTH 2 TIMES DAILY NEEDED FOR NAUSEA. 30 Tab1 ??? oxyCODONE (ROXICODONE) 5 mg immediate release tablet Take 1 Tab by mouth 2 times daily as needed for Pain. Daily Max: 10 mg 30 Tab 0 ??? OXYGEN-AIR DELIVERY SYSTEMS MISC by misc (non-drug; combo route) route. ??? SENNA LAXATIVE 8.6 mg tablet TAKE 1 TABLET BY MOUTH EVERYDAY AT BEDTIME 30 Tab 11 ??? spironolactone (ALDACTONE) 100 mg tablet Take 1 Tab by mouth daily. 90 Tab 3 ??? spironolactone (ALDACTONE) 50 mg tablet Take one 50 mg tablet with one 100 mg tablet daily for a total of 150 mg daily. 90 Tab 0 ??? SYMBICORT 160-4.5 mcg/actuation HFA aerosol inhaler inhaler Inhale 2 Puffs as directed daily. 1Inhaler 11 ??? tamsulosin (FLOMAX) 0.4 mg capsule Take 1 Cap by mouth daily. 30 Cap 11 ??? umeclidinium (INCRUSE ELLIPTA) 62.5 mcg/actuation Take 1 Puff by mouth daily. 1 Each 11 No current facility-administered medications for this visit. Facility-Administered Medications Ordered in Other Visits Medication Dose Route Frequency Provider Last Rate Last Admin ??? albuterol (ACCUNEB) 2.5 mg /3 mL (0.083 %) nebulizer solution Allergies Allergies Allergen Reactions ??? Morphine Anaphylaxis ??? Sulfa (Sulfonamide Antibiotics) Anaphylaxis ??? Tylenol [Acetaminophen] Other (See Comments) Contraindication with medical hx ??? Aspirin Other (See Comments) Contraindication with medical hx ??? Injectafer [Ferric Carboxymaltose] ??? Lyrica [Pregabalin] Anxiety Insomnia ??? Reglan [Metoclopramide Hcl] Rash Review of systems Negative Positive Details Constitutional X Cardiovascular X Respiratory X Shortness of breath, chronic, worse recently Gastrointestinal X Some constipation PATIENT ESCORT X Musculoskeletal X Cheonic low back pain, new left sided lank pin Neurological X Psychiatric X Insomnia Hematological/Lymphatic X Endocrine X Eyes X Ears,nose, mouth,throat, X Integumentary X Allergic/Immunologic X PHYSICAL EXAMINATION: BP 106/48 (BP Cuff Location: Right arm, BP Patient Position: Sitting, BP Cuff Sizes: Adult, large) Pulse 80 Temp 35.8 ??C (96.4 ??F) (Temporal) Resp 20 Ht 161.3 cm (63.5) Wt 98.6 kg (217 lb 6.4 oz) BMI 37.91 kg/m?? , Body mass index is 37.91 kg/m??. Organ system Negative Positive Not examined Details Constitution/General x EENT & Mouth x Neck/Thyroid x Skins,nodes, glands x Respiratory x Diffuse expiratory wheezes, diminished breath sounds Heart x Peripheral Vascular x Breasts and Axillae x Abdomen x Scrotum/testes x Pelvic x Rectal x Musculoskeletal x Neurologic x EKG: peformed on 08/2020 with evidence of normal sinus rhty IMPRESSION: Tara Yun is a 60 y.o., female who presents today for a pre-operative physical for left ureteroscopy and laser lithotripsy at this time they are at a moderate risk for perioperative events. Revised Cardiac Risk Index: 0 risk factors. Rate of cardiac and nonfatal myocardial infarction, cardiac arrest or ventricular fibrillation, pulmonary edema, and complete heart block: 3.9% PLAN: - Patient remains a moderate risk in part due to her history of thrombocytopenia and her significant wheezing on exam in conjunction with reports of SOB consistent with a presentation of COPD exacerbation. It is worth noting that her CXR and vitals were normal during her previous ED presentation and in the office today. - To better optimize her for surgery I agree with hematology efforts to boost her platelet count with lusutrombopag. - To assist in resolving her COPD exacerbation I will music internship steroid taper by 8 days (to end on 11/29/2019) - Patient can proceed to scheduled surgery at surgeon's and anesthesiologist's discretion, but I would advise that patient is monitored overnight for any complications. Emigdio Veronica MD [facility] Internal Medicine Adult Primary Care - [place] 11/20/2020; 13:25 SUMMARY OF GUIDELINES: *Reference: Revised Cardiac Risk Index (Lema 6 independent predictors of cardiac complications): 1. High risk surgery (vascular, intraperitoneal, intrathoracic) 2. History of CAD (history of PR or a positive ETT, current ischemic chest pain, use of nitrates, or Q waves on ECG with pathological Q waves. (Don't count previous CABG unless another of the factorsis present) 3. Hx CHF 4. Hx Stroke 5. Cr >2.0 mg/dl 6. DM on insulin documented in this encounter OR Notes * OR Surgeon - Lon Ortez MD - 12/03/2020 1003 EST OPERATIVE REPORT SERVICE DATE: 12/03/2020 PREOPERATIVE DIAGNOSIS: Left ureteral stone. POSTOPERATIVE DIAGNOSIS: Left ureteral stone. PROCEDURE: Cystoscopy, left retrograde pyelogram with intraoperative interpretation, left JJ ureteral stent placement. SURGEON: Lon Ortez MD SALES HOST: Rc Anne MD ANESTHESIA: Sedation. INDICATIONS: Tara presented with a 4 mm ureteral stone and pain. She had a urine culture done 2 days ago that resulted as gram-positive cocci this morning, so we opted to place a stent as opposed to removing the stone. NARRATIVE: The patient was brought to the room and safety check step 1 was performed. She then underwent sedation, was placed in lithotomy position, prepped and draped in sterile fashion. Safety checklist step 2 was performed. We then inserted a rigid cystoscope into the urethra and the bladder mucosa inspected carefully, which appeared normal. We then cannulated the left ureteral orifice with a 0.035 sensor wire and advanced it up to the level of the kidney. We placed a TigerTail, 5-German [id number], and removed the wire and did a gentle retrograde by injecting 2 mL of Isovue, which highlighted the renal calices and pelvis and showed mild hydro. We then obtained a culture from the leftside, which was clear pink. We then replaced the wire and removed the open ending and placed a left6 by 24 JJ ureteral stent with good curl seen in the renal pelvis, as well as the bladder. Intraoperative interpretation was done of the retrograde. ESTIMATED BLOOD LOSS: Minimal. FOREIGN MATERIAL RETAINED: Left 6 by 24 JJ ureteral stent. SPECIMENS: Left renal pelvis fluid culture. COMPLICATIONS: None. DISPOSITION: PACU. PLAN: She will follow up in 1-2 weeks' time for ureteroscopy and stent exchange. Unless otherwise noted, there were no complications, no blood loss, no cultures obtained, no specimens removed, and no drains retained. Lon Ortez MD / KM Confirmation: [id number] Dictation ID: [id number] cc: * Preprocedure Instructions - Zeina Wasserman RN - 12/02/2020 1303 EST Tara Yun has been instructed as follows regarding medication administration for the day of the scheduled procedure. Date of Surgery: 12/03/2020 Instructions for Taking Medications Day of Surgery Medication Sig Last Dose Hold DOS Take DOS albuterol (ACCUNEB) 2.5 mg /3 mL (0.083 %) nebulizer solution USE 1 VIAL VIA NEBULIZER 4 TIMES A DAY NEEDED Yes albuterol 90 mcg/actuation inhaler Inhale 2 Puffs as directed every 4 hours as needed. Yes docusate sodium (COLACE) 100 mg capsule TAKE 1 CAPSULE BY MOUTH TWICE A DAY Yes ERGOCALCIFEROL, VITAMIN D2, (VITAMIN D ORAL) Take by mouth. 12/02/2020 ferrous gluconate (FERGON) 324 mg (38 mg iron) tablet Take 324 mg by mouth daily with breakfast. 12/02/2020 furosemide (LASIX) 40 mg tablet Take 2 Tabs by mouth daily. Patient taking differently: Take 80 mg by mouth daily before breakfast. Yes levothyroxine (SYNTHROID) 25 mcg tablet Take 1 Tab by mouth daily. Unknown dose Patient taking differently: Take 25 mcg by mouth daily before breakfast. Yes LUSUTROMBOPAG ORAL Take 3 mg by mouth daily. (x7 days preop per Starr Paige Heme/Onc ) 11/30/2020 magnesium oxide (MAG-OX) 400 mg (241.3 mg magnesium) tablet Take 1 Tab by mouth daily. 12/01/2020 ondansetron (ZOFRAN) 4 mg tablet Take 1 Tab by mouth 2 times daily as needed for Nausea. Yes oxyCODONE (ROXICODONE) 5 mg immediate release tablet Take 1 Tab by mouth 2 times daily as needed for Pain. Daily Max: 10 mg Yes OXYGEN-AIR DELIVERY SYSTEMS MISC 2 L by misc (non-drug; combo route) route at bedtime. Bedtime SENNA LAXATIVE 8.6 mg tablet TAKE 1 TABLET BY MOUTH EVERYDAY AT BEDTIME Bedtime spironolactone (ALDACTONE) 100 mg tablet Take 1 Tab by mouth daily. Patient taking differently: Take 150 mg by mouth daily before breakfast. Yes spironolactone (ALDACTONE) 50 mg tablet Take one 50 mg tablet with one 100 mg tablet daily for a total of 150 mg daily. Yes SYMBICORT 160-4.5 mcg/actuation HFA aerosol inhaler inhaler Inhale 2 Puffs as directed daily. Patient taking differently: Inhale 2 Puffs as directed daily before breakfast. Yes tamsulosin (FLOMAX) 0.4 mg capsule Take 1 Cap by mouth daily. Patient taking differently: Take 0.8 mg by mouth at bedtime. Yes documented in this encounter Miscellaneous Notes * Plan of Care - Cris Rolon - 12/04/2020 1323 EST Problem: Daily Care Plan Goals Goal: Care Plan Documentation Outcome: Met This Shift Flowsheets (Taken 12/04/2020 1319) Area of Focus: Discharge Plan Goal This Shift: DC planning Note: Data: Cleared for DC and order received. Action: DC teaching reviewed with pt. Belongings packed and pt dressed. IV removed and dsg applied. Response: Understanding verbalized on all topics discussed. Awaiting commodity broker transport to [facility]. CRIS ROLON RN 12/04/2020 13:19 * Plan of Care - Leti Carr RN - 12/04/2020 0126 EST Data: pt POD1 s/p L. Ureteral stent insertion, L. Retrograde pyelogram, and cystoscopy. Pt c/o 7-8/10 L. Flank pain through the night, goal is for adequate pain management. Action: medicated pt for pain (see eMAR). Applied heat to flank area, encouraged ambulation and clustered care to promote rest. LR infusing @100mL/hr. Response: pt's pain adequately managed w/ current pain regimen. Pt found asleep sitting on edge of bed after taking oxycodone--pt was able to independently reposition self back to bed. Pt now sleeping comfortably in bed, call hines in reach, WC. LETI CARR RN 12/04/2020 1:26 * Plan of Care - Madeleine Marroquin RN - 12/03/2020 1743 EST Problem: Daily Care Plan Goals Goal: Care Plan Documentation Flowsheets (Taken 12/03/2020 1600) Area of Focus: Pain/ Comfort Goal This Shift: tolerable pain Data: Pt s/p L cysto with stent placement today. Reports pain 8-9/10. Voiding. +Flatus. Ambulating in room independently. IVF infusing per order. Action: Scheduled and PRN meds given, see MAR. Pt voiding with PVR x2. (51ml and 26ml). Ambulating independently. Response: Pt resting comfortably, eating dinner. Safety maintained. Call hines within reach. MADELEINE MARROQUIN RN 12/03/2020 17:43 * Brief Op Note - Rc Anne MD - 12/03/2020 1311 EST Brief Post-Op Note Date of Surgery: 12/03/2020 Surgeon: Lon Ortez MD Assistants: Rc Anne MD Pre-Op Diagnosis: left flank pain Post-Op Diagnosis: same Procedure(s): left ureteral stent, left retrograde pyelogram, cystosocpy Findings: none, little urine from left kidney (culture obtained) Anesthesia Type: Monitored anesthesia care Estimated Blood Loss: Unless otherwise noted, there was no blood loss, specimens removed, cultures obtained, or drains retained. The estimated blood loss was Minimal Fluids: fluid replacement per anesthesia Urine Output: not measured Specimens/Cultures: left renal pelvis fluid sent for culture Drains/Packs: 6fr x 26cm left JJ ureteral stent Wound Class: II: clean contaminated Complications: None Disposition and Condition: Tara Yun was sent to PACU in Good condition. Rc Anne MD 12/03/2020 13:11 documented in this encounter Plan of Treatment Upcoming Encounters Date Type Department Care Team (Late st Contact Info) Description 01/04/2025 13:00 EST Office Visit [facility] Ophthalmology - [address] [phone] Gagandeep Rome MD [address] [place] [address], [facility] [address] [place] [address] 02/11/2025 13:30 EDT Telemedicine [facility] Hematology & Oncology [address] [address] Dana Padilla MD [address] [place] [address], [address] [place] [phone] documented as of this encounter Procedures Procedure Name Priority Date/Time Associated Diagnosis Comments IMPLANT RECORD - SCANNED 01/14/2021 14:28 EST IMPLANT RECORD - SCANNED 12/09/2020 14:53 EST COMPLETE BLOOD COUNT Routine 12/04/2020 3:42 EST BUN Routine 12/04/2020 3:42 EST GLUCOSE, SERUM Routine 12/04/2020 3:42 EST CREATININE Routine 12/04/2020 3:42 EST ELECTROLYTES Routine 12/04/2020 3:42 EST FL C-ARM RETROGRADE Routine 12/03/2020 1 2:50 EST BACTERIAL CULTURE/SMEAR Routine 12/03/2020 12:39 EST LITHOTRIPSY, WITH CALCULUS REMOVAL, STENT INSERTION, AND URETEROSCOPY 12/03/2020 12:04 EST Nephrolithiasis Special Needs 120W documented in this encounter Results * IMPLANT RECORD - SCANNED (01/14/2021 14:28 EST) 01/14/2021 14:2 8 EST us Scan 2 Calender Operator Helper PROCEDURE/MINOR SURGICAL OR DERABLES Final Result * IMPLANT RECORD - SCANNED (12/09/2020 14:53 EST) 12/09/2020 14:5 3 EST us Scan 2 Calender Operator Helper PROCEDURE/MINOR SURGICAL OR DERABLES Final Result * (ABNORMAL) GLUCOSE, SERUM (12/04/2020 3:42 EST) Glucose 107(H) 70 - 100 mg/dL 12/04/2020 4:27 EST [facility] Blood VENOUS BLOOD / Unknown Venipuncture / Unknown 12/04/2020 3:42 EST 12/04/2020 3:59 EST us Rc Anne MD CHEMISTRY & BLOOD GAS ORDERABL ES Final Result [facility] [address] [place] [address] * (ABNORMAL) CREATININE (12/04/2020 3:42 EST) Creatinine 1.28(H) 0.52 - 1.04 mg/dL 12/04/2020 4:27 [facility] eGFR 46(L) >60 mL/min/1.7 3m2 12/04/2020 4:27 [facility] Comment:eGFR calculated lobito coppola CKD-EPI equation for non- Americans. Multiply eGFR by 1.16 for patients. Blood VENOUS BLOOD / Unknown Venipuncture / Unknown 12/04/2020 3:42 EST 12/04/2020 3:59 EST Rc Anne MD CHEMISTRY & BLOOD GAS ORDERABL ES Final Result Performing Organization Address City/[facility]/ZIP Co de Phone Number [facility] [address] [place] [address] * BUN (12/04/2020 3:42 EST) BUN 17 10 - 26 mg/dL 12/04/2020 4:27 [facility] Blood VENOUS BLOOD / Unknown Venipuncture / Unknown 12/04/2020 3:42 EST 12/04/2020 3:59 EST Rc Anne MD CHEMISTRY & BLOOD GAS ORDERABL ES Final Result Performing Organization Address City/[facility] de Phone Number [facility] [address] [place] [address] * (ABNORMAL) ELECTROLYTES (12/04/2020 3:42 EST) Sodium 135(L) 136 - 145 mEq/L 12/04/2020 4:27 [facility] Potassium 4.7 3.5 - 5.0 mEq/L 12/04/2020 4:27 [facility] Chloride 99 96 - 110 mEq/L 12/04/2020 4:27 [facility] CO2 Total 30 22 - 32 mEq/L 12/04/2020 4:27 [facility] Blood VENOUS BLOOD / Unknown Venipuncture / Unknown 12/04/2020 3:42 EST 12/04/2020 3:59 EST us Rc Anne MD CHEMISTRY & BLOOD GAS ORDERABL ES Final Result [facility] [address] [place] [address] * (ABNORMAL) COMPLETE BLOOD COUNT (12/04/2020 3:42 EST) WBC 2.30(L) 4.00 - 12.40 K/cmm 12/04/2020 4:24 [facility] RBC 3.91 3.86 - 5.04 M/cmm 12/04/2020 4:24 [facility] Hemoglobin 11.3(L) 11.6 - 15.2 gm/dL 12/04/2020 4:24 [facility] HCT 33.3(L) 34.9 - 44.4 % 12/04/2020 4:24 [facility] MCV 85 81 - 98 fl 12/04/2020 4:24 [facility] MCH 28.9 26.7 - 33.3 pg 12/04/2020 4:24 [facility] MCHC 33.9 32.1 - 35.9 gm/dL 12/04/2020 4:24 [facility] RDW-CV 14.6 <14.7 % 12/04/2020 4:24 [facility] RDW-SD 44.8 <50.4 fl 12/04/2020 4:24 [facility] PLT 65(L) 141 - 377 K/cmm 12/04/2020 4:24 [facility] MPV 9.9 9.5 - 12.7 fl 12/04/2020 4:24 [facility] Blood VENOUS BLOOD / Unknown Venipuncture / Unknown 12/04/2020 3:42 EST 12/04/2020 3:59 EST us Rc Anne MD HEMATOLOGY & PF4 ORDERABLES Fi nal Result Performing Organization Address City/[facility]/ZIP Co de Phone Number [facility] [address] [place] [address] * FL C-ARM RETROGRADE (12/03/2020 12:50 EST) Narrative 12/03/2020 12:51 EST This is a non-reportable exam. Lon Ortez MD IMG OTHER IMAGING ORDERABLES Final Result * BACTERIAL CULTURE/SMEAR (12/03/2020 12:39 EST) Organism ID No Growth 12/08/2020 11:31 EST [facility] Smear Neutrophils Present 12/08/2020 11:31 EST [facility] Smear No bacteria seen 12/08/2020 11:31 EST [facility] Fluid ENTIRE KIDNEY / Unknown 12/03/2020 12:39 EST 12/03/2020 14:13 EST us Lon Ortez MD MICROBIOLOGY - GENERAL ORDERA BLES Final Result Performing Organization Address [facility] Co de Phone Number [facility] [address] [place] [address] documented in this encounter Visit Diagnoses Diagnosis Nephrolithiasis- Primary Calculus of kidney Left ureteral stone documented in this encounter Admitting Diagnoses Diagnosis Nephrolithiasis Calculus of kidney documented in this encounter Administered Medications Inactive Administered Medications - up to 3 most recent administrations Medication Order MAR Action Action Date Dose Rate Site ceFAZolin in dextrose (iso-os) piggyback 2 g/100 mL 2,000 mg, intravenous, Administer over 30 Minutes, EVERY 8 HOURS, 3 doses, First dose on 12/03/20 at 1600, Last dose on Kirsten 12/04/20 at 0800, Type of Therapy: Prophylaxis, Suspected Indication (Select all that apply): Surgical prophylaxis, ID Consult: No, Routine Given 12/04/2020 8:14 EST 2,000 mg Given 12/03/2020 23:27 EST 2,000 mg Given 12/03/2020 16:03 EST 2,000 mg diphenhydrAMINE (BENADRYL) injection 12.5 mg 12.5 mg, intravenous, PRN, 1 dose, Starting on Tue12/03/20 at 1241, Until Tue12/03/20 at 1321, nausea, Routine, Recovery (only) Given 12/03/2020 13:21 EST 12.5 mg fentaNYL citrate (PF) injection 25-50 mcg 25-50 mcg, intravenous, EVERY 5 MIN PRN, Starting on Tue12/03/20 at 1241, Until Tue12/03/20 at 1506, Pain, Routine, Recovery (only) Given 12/03/2020 13:50 EST 50 mcg Given 12/03/2020 13:21 EST 50 mcg ferrous gluconate (FERGON) tablet 324 mg 324 mg, oral, DAILY WITH BREAKFAST, First dose on Tue12/04/20 at 0800, Until Discontinued, Routine Given 12/04/2020 8:12 EST 324 mg furosemide (LASIX) tablet 80 mg 80 mg, oral, DAILY, First dose on Tue12/04/20 at 0900, Until Discontinued, Routine Given 12/04/2020 8:12 EST 80 mg lactated ringers (LR) infusion 30 mL/hr, intravenous, CONTINUOUS, Starting on Tue12/03/20 at 1130, Until Tue12/03/20 at 1334, Routine, Preprocedure Continued by Anesthesia 12/03/2020 12:23 EST New Bag 12/03/2020 11:03 EST 30 mL/hr 30 mL/hr lactated ringers (LR) infusion 100 mL/hr, intravenous, CONTINUOUS, Starting on Tue12/03/20 at 1345, Until Tue12/04/20 at 1546, Routine Rate Documented 12/03/2020 19:25 EST 100 mL/hr 100 mL/hr New Bag 12/03/2020 13:34 EST 100 mL/hr 100 mL/hr levothyroxine (SYNTHROID) tablet 25 mcg 25 mcg, oral, DAILY BEFORE BREAKFAST, First dose on Tue12/04/20 at 0700, Until Discontinued, Routine Given 12/04/2020 6:10 EST 25 mcg magnesium oxide (MAG-OX) tablet 400 mg 400 mg, oral, DAILY, First dose on Tue12/04/20 at 0900, Until Discontinued, Routine Given 12/04/2020 8:12 EST 400 mg mometasone-formoterol (DULERA) 200-5 mcg/actuation inhaler 2 Puff 2 Puff, inhalation, DAILY - LT only, First dose on Tue12/04/20 at 0630, Until Discontinued Given 12/04/2020 8:16 EST 2 Puffs ondansetron (PF) (ZOFRAN) injection 4 mg 4 mg, intravenous, EVERY 4 HOURS PRN, Starting on Tue12/03/20 at 1505, Until Tue12/04/20 at 1546, Nausea, Routine ondansetron (ZOFRAN-ODT) disintegrating tablet 4 mg 4 mg, oral, EVERY 4 HOURS PRN, Starting on Tue12/03/20 at 1505, Until Tue12/04/20 at 1546, Nausea, Routine oxybutynin (DITROPAN) tablet 5 mg 5 mg, oral, 3 TIMES DAILY PRN, Starting on Tue12/03/20 at 1324, Until Tue12/04/20 at 1546, Other, bladder spasm, Routine Given 12/04/2020 13:01 EST 5 mg Given 12/03/2020 20:03 EST 5 mg Given 12/03/2020 13:33 EST 5 mg oxyCODONE (ROXICODONE) immediate release tablet 5-10 mg 5-10 mg, oral, EVERY 4 HOURS PRN, Starting on Tue12/03/20 at 1323, Until Tue12/04/20 at 1546, Pain, 5mg for mild to moderate pain (3-8) 10mg for severe pain (9-10), Routine Given 12/04/2020 13:01 EST 10 mg Given 12/04/2020 7:16 EST 10 mg Given 12/03/2020 23:28 EST 10 mg phenazopyridine (PYRIDIUM) tablet 200 mg 200 mg, oral, 3 TIMES DAILY PRN, 9 doses, Starting on Tue12/03/20 at 1323, Until Tue12/04/20 at 1546, Pain, Routine Given 12/04/2020 7:16 EST 200 mg Given 12/03/2020 20:03 EST 200 mg Given 12/03/2020 13:33 EST 200 mg promethazine (PHENERGAN) suppository 12.5 mg 12.5 mg, rectal, EVERY 6 HOURS PRN, Starting on Tue12/03/20 at 1323, Until Tue12/04/20 at 1546, Nausea, Routine promethazine (PHENERGAN) tablet 12.5 mg 12.5 mg, oral, EVERY 6 HOURS PRN, Starting on Tue12/03/20 at 1323, Until Tue12/04/20 at 1546, Nausea, Routine Given 12/03/2020 13:33 EST 12.5 mg spironolactone (ALDACTONE) tablet 150 mg 150 mg, oral, DAILY, First dose on Tue12/04/20 at 0900, Until Discontinued, Routine Given 12/04/2020 8:12 EST 150 mg TAMSulosin (FLOMAX) capsule 0.4 mg 0.4 mg, oral, AT BEDTIME, First dose on Tue12/03/20 at 2100, Until Discontinued, Routine Given 12/03/2020 20:03 EST 0 .4 mg documented in this encounter Discontinued Medications Medication Sig Discontinue Reason Start Date End Da te umeclidinium (INCRUSE ELLIPTA) 62.5 mcg/actuationIndicatio ns:COPD with asthma ([facility]) Take 1 Puff by mouth daily. Therapy completed 06/20/2020 12/02/2020 TAMSulosin (FLOMAX) 0.4 mg capsule Take 2 Caps by mouth at bedtime for 10 days. 12/04/2020 12/04/2020 phenazopyridine (PYRIDIUM) 200 mg tablet Take 1 Tab by mouth 3 times daily as needed for Pain. 12/04/2020 12/04/2020 cephalexin (KEFLEX) 500 mg capsule Take 1 Cap by mouth 2 times daily for 10 days. Reorder 12/04/2020 12/04/2020 tamsulosin (FLOMAX) 0.4 mg capsule Take 1 Cap by mouth daily. Stop Taking at Discharge 02/19/2020 12/04/2020 documented as of this encounter Historical Medications * This list may reflect changes made after this encounter. LUSUTROMBOPAG ORALIndications:H ematologist prescribed -- 7 day course prior to 12/03/2020 Dr. King torres Take 3 mg by mouth daily. 03/19/2021 added in this encounter Active and Recently Administered Medications Times are shown in EST. Scheduled Medication Order 12/02/2020 12/03/2020 12/04/2020 ceFAZolin (ANCEF) syringe 2 g (COMPLETED) 2 g, intravenous, Administer over 10 Minutes, PRE-OP ONCE, 1 dose, On Tue12/03/20 at 1130, Type of Therapy: Prophylaxis, Suspected Indication (Select all that apply): Surgical prophylaxis, Routine, Preprocedure 1222 (Given - Provider: Jeffrey Zamudio CRNA) ceFAZolin in dextrose (iso-os) piggyback 2 g/100 mL (COMPLETED) 2,000 mg, intravenous, Administer over 30 Minutes, EVERY 8 HOURS, 3 doses, First dose on Tue12/03/20 at 1600, Last dose on Tue12/04/20 at 0800, Type of Therapy: Prophylaxis, Suspected Indication (Select all that apply): Surgical prophylaxis, ID Consult: No, Routine 1603 (Given - Provider: Madeleine Marroquin RN)2327 (Given - Provider: Leti Carr RN) 0814 (Given - Provider: Cris Rolon) ferrous gluconate (FERGON) tablet 324 mg 324 mg, oral, DAILY WITH BREAKFAST, First dose on Tue12/04/20 at 0800, Until Discontinued, Routine 08 (Given - Provid er: Cris Rolon) furosemide (LASIX) tablet 80 mg 80 mg, oral, DAILY, First dose on Tue12/04/20 at 0900, Until Discontinued, Routine 08 (Given - Provid er: Cris Rolon) levothyroxine (SYNTHROID) tablet 25 mcg 25 mcg, oral, DAILY BEFORE BREAKFAST, First dose on Tue12/04/20 at 0700, Until Discontinued, Routine 0610 (Given - Provid er: Leti Carr RN) magnesium oxide (MAG-OX) tablet 400 mg 400 mg, oral, DAILY, First dose on Tue12/04/20 at 0900, Until Discontinued, Routine 08 (Given - Provid er: Cris Rolon) mometasone-formoterol (DULERA) 200-5 mcg/actuation inhaler 2 Puff 2 Puff, inhalation, DAILY - LTC only, First dose on Tue12/04/20 at 0630, Until Discontinued 0816 (Given - Provid er: Cris Rolon) senna (SENOKOT) tablet 1 Tab 1 Tablet, oral, AT BEDTIME, First dose on Tue12/03/20 at 2100, Until Discontinued, Routine 2002 (Not Given - Provider: Leti Carr RN - Reason: Patient/family refused) spironolactone (ALDACTONE) tablet 150 mg 150 mg, oral, DAILY, First dose on Kirsten 12/04/20 at 0900, Until Discontinued, Routine 0812 (Given - Provid er: Cris Rolon) TAMSulosin (FLOMAX) capsule 0.4 mg 0.4 mg, oral, AT BEDTIME, First dose on Tue12/03/20 at 2100, Until Discontinued, Routine 2002 (Given - Provider: Leti Carr RN) Continuous Medication Order 12/02/2020 12/03/2020 12/04/2020 lactated ringers (LR) infusion (CANCELED) 30 mL/hr, intravenous, CONTINUOUS, Starting on Tue12/03/20 at 1130, Until Tue12/03/20 at 1334, Routine, Preprocedure 1103 (New Bag - Provider: Maria Chen RN)1223 (Continued by Anesthesia - Provider: Jeffrey Zamudio CRNA)1259 (Anesthesia Volume Adjustment - Provider: Jeffrey Zamudio CRNA) lactated ringers (LR) infusion 100 mL/hr, intravenous, CONTINUOUS, Starting on Tue12/03/20 at 1345, Until Kirsten 12/04/20 at 1546, Routine 1334 (New Bag - Provider: Soni Almendarez RN)1925 (Rate Documented - Provider: Leti Carr RN) 0957 (Completed - Provider: Cris Rolon - Comment: DC order) PRN Medication Order 12/02/2020 12/03/2020 12/04/2020 albuterol (ACCUNEB) nebulizer solution 2.5 mg 2.5 mg, nebulization, EVERY 6 HOURS PRN, Starting on Tue12/03/20 at 1506, Until Kirsten 12/04/20 at 1546, Wheezing, Routine albuterol inhaler 180 mcg 180 mcg (2 Puff), inhalation, EVERY 4 HOURS PRN, Starting on Tue12/03/20 at 1506, Until Kirsten 12/04/20 at 1546, Wheezing, Shortness of Breath, Routine diphenhydrAMINE (BENADRYL) injection 12.5 mg (COMPLETED) 12.5 mg, intravenous, PRN, 1 dose, Starting on Tue12/03/20 at 1241, Until Tue12/03/20 at 1321, nausea, Routine, Recovery (only) 1321 (Given - Provider: Soni Almendarez RN) fentaNYL citrate (PF) injection 25-50 mcg (CANCELED) 25-50 mcg, intravenous, EVERY 5 MIN PRN, Starting on Tue12/03/20 at 1241, Until Tue12/03/20 at 1506, Pain, Routine, Recovery (only) 1321 (Given - Provider: Soni Almendarez RN)1350 (Given - Provider: Soni Almendarez RN) ondansetron (PF) (ZOFRAN) injection 4 mg(Linked Group 1) 4 mg, intravenous, EVERY 4 HOURS PRN, Starting on Tue12/03/20 at 1505, Until Tue12/04/20 at 1546, Nausea, Routine ondansetron (ZOFRAN-ODT) disintegrating tablet 4 mg(Linked Group 1) 4 mg, oral, EVERY 4 HOURS PRN, Starting on Tue12/03/20 at 1505, Until Tue12/04/20 at 1546, Nausea, Routine oxybutynin (DITROPAN) tablet 5 mg 5 mg, oral, 3 TIMES DAILY PRN, Starting on Tue12/03/20 at 1324, Until Tue12/04/20 at 1546, Other, bladder spasm, Routine 1333 (Given - Provider: Soni Almendarez RN)2002 (Given - Provider: Leti Carr RN) 1301 (Given - Provider: Cris Rolon) oxyCODONE (ROXICODONE) immediate release tablet 5-10 mg 5-10 mg, oral, EVERY 4 HOURS PRN, Starting on Tue12/03/20 at 1323, Until Tue12/04/20 at 1546, Pain, 5mg for mild to moderate pain (3-8) 10mg for severe pain (9-10), Routine 1333 (Given - Provider: Soni Almendarez RN)1741 (Given - Provider: Madeleine Marroquin RN)2328 (Given - Provider: Leti Carr RN) 0716 (Given - Provider: Cris Rolon)1301 (Given - Provider: Cris Rolon) phenazopyridine (PYRIDIUM) tablet 200 mg 200 mg, oral, 3 TIMES DAILY PRN, 9 doses, Starting on Tue12/03/20 at 1323, Until Kirsten 12/04/20 at 1546, Pain, Routine 1333 (Given - Provider: Soni Almendarez, KENN)2002 (Given - Provider: Leti Carr RN) 0716 (Given - Provider: Cris Rolon) promethazine (PHENERGAN) suppository 12.5 mg(Linked Group 2) 12.5 mg, rectal, EVERY 6 HOURS PRN, Starting on Tue12/03/20 at 1323, Until Kirsten 12/04/20 at 1546, Nausea, Routine 1333 (See Alternative - Provider: Soni Almendarez RN) promethazine (PHENERGAN) tablet 12.5 mg(Linked Group 2) 12.5 mg, oral, EVERY 6 HOURS PRN, Starting on Tue12/03/20 at 1323, Until Kirsten 12/04/20 at 1546, Nausea, Routine 1333 (Given - Provider: Soni Almendarez RN) Linked Groups Order Group 1: ondansetron (PF) (ZOFRAN) injection 4 mgJump to med 4 mg, intravenous, EVERY 4 HOURS PRN, Starting on Tue12/03/20 at 1505, Until Kirsten 12/04/20 at 1546, Nausea, Routine Or ondansetron (ZOFRAN-ODT) disintegrating tablet 4 mgJump to med 4 mg, oral, EVERY 4 HOURS PRN, Starting on Tue12/03/20 at 1505, Until Kirsten 12/04/20 at 1546, Nausea, Routine Group 2: promethazine (PHENERGAN) tablet 12.5 mgJump to med 12.5 mg, oral, EVERY 6 HOURS PRN, Starting on Tue12/03/20 at 1323, Until Kirsten 12/04/20 at 1546, Nausea, Routine Or promethazine (PHENERGAN) suppository 12.5 mgJump to med 12.5 mg, rectal, EVERY 6 HOURS PRN, Starting on Tue12/03/20 at 1323, Until Kirsten 12/04/20 at 1546, Nausea, Routine documented in this encounter Orders Medications Ordered That Luc ht Not Have Been Administered Count Last Ordered Date First Ordered Date albuterol (ACCUNEB) nebulize r solution 2.5 mg 1 12/03/2020 albuterol inhaler 180 mcg 1 12/03/2020 atropine 0.1 mg/mL syringe 0.5 mg 1 021 ceFAZolin (ANCEF) syringe 2 g 1 12/03/2020 lactated ringers (LR) infusion 1 12/03/2020 naloxone (NARCAN) injection 0.2 mg 1 2020 ondansetron (PF) (ZOFRAN) injection 4 mg 2 12/03/2020 ondansetron (ZOFRAN-ODT) dis integrating tablet 4 mg 1 12/03/2020 oxyCODONE (ROXICODONE) immed iate release tablet 5 mg 1 12/03/2020 promethazine (PHENERGAN) sup pository 12.5 mg 1 12/03/2020 senna (SENOKOT) tablet 1 Tab 1 12/03/2020 Nursing Count Last Ordered Date First Orde red Date CONTRAINDICATION TO ANTICOAG ULATION THERAPY 1 12/03/2020 NURSING COMMUNICATION 1 12/03/2020 Transfer Count Last Ordered Date First Orde red Date TEACHING SERVICE 1 12/03/2020 Discharge Count Last Ordered Date First Orde red Date DISCHARGE PATIENT 1 12/04/2020 Case Request Count Last Ordered Date First Orde red Date CASE REQUEST OPERATING ROOM 1 12/03/2020 documented in this encounter Care Teams Critical Care Technician Relationship Specialty Start Date End Date Emigdio Veronica MD [address] [place] [phone] PCP - General Internal Medicine - Primary Care 05/22/20 02/21/24 documented as of this encounter
--- OUTSIDE RECORDS SUMMARY | 2024-11-22 17:19 | XMS_ITS | Encounter Summary ---
Author Organization [facility] Address [address] [place] [address] Care Team Providers Care Manager Summer Name Role Phone Emigdio Veronica MD Primary Care Provider + Reason for Referral * Radiology Services (Routine) - Closed Specialty Diagnoses / Procedures [facility] Referred To Contact Diagnoses Flank pain Procedures XR ABDOMEN 1 VIEW Lon Ortez MD Phone: tel: fax: Referral ID Status Reason Start Date Expiration Date Visits Re quested Visits Authorized [id number] Closed 12/09/2020 1 1 Reason for Visit * Reason Onset Date Comments Abdominal Pain 12/09/2020 Post-op Problem 12/09/2020 Returning Call 12/09/2020 Encounter Details Date Type Department Care Team (Late st Contact Info) Description 12/09/2020 Telephone [facility] Urology - [facility] [address] [place] [address] Lon Ortez MD [address] [facility], [address] [place] [address] Abdominal Pain; Post-op Problem; Returning Call Social History Tobacco Use Types Packs/Day Years [...] 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 Pt aware. * Telephone Encounter - Justina Bustillo RN - 12/09/2020 1052 EST Spoke to pt and she is in significant pain from left flank to bladder. Stent has migrated out and she is leaking constantly. She is unsure if enough is out for her to grab but she cannot sit comfortably. Will try and consult with Dr Ortez. * Telephone Encounter - Chaparrita Salazar - 12/09/2020 1041 EST Patient called again. Please call. * Telephone Encounter - Dominic Huang - 12/09/2020 0955 EST Patient is calling to report her stent is coming out, there is leakage, and she has had bad cramps in her lower abdomen for four days. Please call back. documented in this encounter Plan of Treatment Upcoming Encounters Date Type Department Care Team (Late st Contact Info) Description 01/04/2025 13:00 EST Office Visit [facility] Ophthalmology - [address] [address] Gagandeep Rome MD [address] [place] [address], [facility] [address] [place] [phone] 02/11/2025 13:30 EDT Telemedicine [facility] [address] [address] Dana Padilla MD [address] [place] [address] 2 [place] [address] documented as of this encounter Results * XR ABDOMEN 1 [...] Flank pain- Primary Abdominal pain, unspecified site Flank pain Abdominal pain, unspecified site documented in this encounter Care Teams Manager Summer Relationship Specialty Start Date End Date Emigdio Veronica MD [address] [place] [phone] PCP - General Internal Medicine - Primary Care 05/22/20 02/21/24 documented as of this encounter
--- OUTSIDE RECORDS SUMMARY | 2024-11-22 17:19 | XMS_ITS | Encounter Summary ---
Author Organization [facility] Address [address] [place] [address] Care Team Providers Care Cooker Sulfite Name Role Phone Emigdio Veronica MD Primary Care Provider + Reason for Visit * Reason Onset Date Comments Surgery Scheduling 12/04/2020 Encounter Details Date Type Department Care Team (Late st Contact Info) Description 12/04/2020 Telephone [facility] Urology - [address] [address] Hardik Vargas, DO [address] [facility], [facility] [address] [place] [address] Surgery Scheduling Social History Tobacco Use Types Packs/Day Years [...] 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 Vargas. Pt will contact hematology for pre-op clearance. A COVID test is required within the 5-7 days prior. Pt is aware that she will need to quarantine after having the test. documented in this encounter Plan of Treatment Upcoming Encounters Date Type Department Care Team (Late st Contact Info) Description 01/04/2025 13:00 EST Office Visit [facility] Ophthalmology - [address] [phone] Gagandeep Rome MD [address] [place] [address] [address] [place] [phone] 02/11/2025 13:30 EDT Telemedicine [facility] Hematology & Oncology - [address] [phone] Dana Padilla MD [address] [place] [address], [address] [place] [phone] documented as of this encounter Visit Diagnoses Not on filedocumented in this encounter Care Teams Cooker Sulfite Relationship Specialty Start Date End Date Emigdio Veronica MD [address] [place] [phone] PCP - General Internal Medicine - Primary Care 05/22/20 02/21/24 documented as of this encounter
--- OUTSIDE RECORDS SUMMARY | 2024-11-22 17:19 | XMS_ITS | Encounter Summary ---
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 [...] Office Visit [facility] Ophthalmology - [address] [phone] Gagandeep Rome MD [address] [place] [address], [facility] [address] [place] [phone] 02/11/2025 13:30 EDT Telemedicine [facility] Hematology & Oncology - [address] [phone] Dana Padilla MD [address] [place] [address], [facility] [address] [place] [phone] documented as of this encounter Visit Diagnoses Not on filedocumented in this encounter Care Teams Marine Firefighter Relationship Specialty Start Date End Date Emigdio Veronica MD [address] [place] [phone] PCP - General Internal Medicine - Primary Care 05/22/20 02/21/24 documented as of this encounter
--- OUTSIDE RECORDS SUMMARY | 2024-11-22 17:19 | XMS_ITS | Encounter Summary ---
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 has access to labs. She states she called and they did not see any. Advised will go ahead and fax order as well. She had no further questions. * Telephone Encounter - Prema Portillo - 12/01/2020 0914 EST Reason for call: Patient calling because she will be getting labs done today that Dr. Paige ordered and she would like to have them done at [facility]. Please call patient when this has been sent. documented in this encounter Plan of Treatment Upcoming Encounters Date Type Department Care Team (Late st Contact Info) Description 01/04/2025 13:00 EST Office Visit [facility] Ophthalmology - [address] [phone] Gagandeep Rome MD [address] [place] [address], [facility] [address] [place] [phone] 02/11/2025 13:30 EDT Telemedicine [facility] Hematology & Oncology - [address] [phone] Dana Padilla MD [address] [place] [address], [facility] [address] [place] [phone] documented as of this encounter Visit Diagnoses Not on filedocumented in this encounter Care Teams Digital Strategy Manager Relationship Specialty Start Date End Date Emigdio Veronica MD [address] [place] [phone] PCP - General Internal Medicine - Primary Care 05/22/20 02/21/24 documented as of this encounter
--- OUTSIDE RECORDS SUMMARY | 2024-11-22 17:19 | XMS_ITS | Encounter Summary ---
Author Organization [facility] Address [address] [place] [id number] Care Team Providers Care Program Professional Name Role Phone Emigdio Veronica MD Primary Care Provider + Reason for Visit * Auth/Cert Specialty Diagnoses / Procedures Referred By Serene huitron Referred To Contact Diagnoses Nephrolithiasis Procedures MD CYSTO/URETERO W/LITHOTRIPSY &INDWELL STENT INSRT Cystoscopy, left ureteroscopy with laser lithotripsy, left retrograde pyelogram, left JJ stent insertion Referral ID Status Reason Start Date Expiration Date Visits Re quested Visits Authorized [id number] 11/11/2020 1 1 Encounter Details Date Type Department Care Team (Late st Contact Info) Description 12/03/2020 12:05 EST - 12/03/2020 14:10 EST [facility] OR [address] [place] [address] Lon Ortez MD [address] [facility], [address] [place] [address] Cystoscopy, left ureteroscopy left retrograde pyelogram, left JJ stent insertion [[id number] (CPT??)] Surgery Details Date/Time Status Location OR Service Patient Class Case Cl ass Case Type Trauma Case? 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 No / Unsure 12/03/2020 10:03 EST documented as of this encounter Last Filed Vital Signs Vital Sign Reading Time Taken Comments Blood Pressure 103/58 12/03/2020 1400 EST Pulse - - Temperature 36.8 ??C (98.2 ??F) 12/03/2020 1350 EST Respiratory Rate 13 12/03/2020 1400 EST Oxygen Saturation 99% 12/03/2020 1400 EST Inhaled Oxygen Concentration - - Weight 93.8 kg (206 lb 12.7 oz) 12/03/2020 1040 EST Height 160 cm (5' 3) 12/03/2020 1040 EST Body Mass Index 35.19 12/03/2020 1526 [...] from us in one week, please call [facility], . Future Appointments Date Time Provider Department Center 12/15/2020 13:15 Emigdio Veronica MD [facility] 12/17/2020 9:30 Starr Paige MD EP2 Hem/Onc [facility] 12/29/2020 10:00 Micheal Moseley MD [facility] None 12/29/2020 14:30 Emigdio Veronica MD [facility] 03/13/2021 9:30 Starr Paige MD EP2 Hem/Onc [facility] What can I expect from [...] you. It is important to keep taking egvl-nli-lwmdasq Tylenol (acetaminophen) and ibupr ofen unless your [...] more than 6 hours after stent removal [facility]rology Clinic: documented in this encounter Medications at Time of Discharge OXYGEN-AIR DELIVERY SYSTEMS MISCIndications: 2 L @ night via nC 2 L by [facility] (non-drug; combo route) route at bedtime. albuterol [...] 90 Tab 3 11/03/2020 1 LUSUTROMBOPAG ORALIndications: Rn First Assistant prescribed -- 7 day course prior to [...] HFA aerosol inhaler inhalerIndicatio ns:COPD with asthma ([facility]) Inhale 2 Puffs as directed daily. [...] Code Departure Means Destination Home or Self Chcf documented in this encounter Progress Notes * Mere Richard, HYDROCHLORIC AREA SUPERVISOR - 12/04/2020 1021 EST Initial Case Management/Social Work Assessment and Discharge Plan/Readmission Risk Assessment REASON FOR ADMISSION: Nephrolithiasis Patient understands reason for admission: Yes PATIENT CONTACT INFO VERIFIED: Yes PATIENT ADDRESS VERIFIED: Yes Type of housing (single family, condo, apartment, long term, single room occupancy, [facility] funded hotel room, group half-way) - Single family Who does the patient live with? Fiance Does the patient have access to their own bedroom/bathroom/kitchen - or is it shared with others? Shared with fiance Name of housing complex (ex [facility], [facility], etc)- n/a Housing Authority/Managing Organization - n/a Community Care Providers (case management social worker, [facility] nurse, etc) name and contact information- n/a LIVING ARRANGEMENTS AND ACCESSIBILITY ISSUES: Living Arrangements: Private residence, Spouse / significant other Levels: 1 Stairs to enter: 2 Handicap access: None Bathroom located on bedroom level?: Yes What in home social supports are available to the patient? Spouse / significant other Is 13/06 care available? Yes ADVANCED DIRECTIVES, POA &/or COLST IN PLACE: Healthcare Directive: No, patient does not have advance directive for healthcare treatment Information Provided on Healthcare Directives: No Information on Healthcare Directives Requested: No DIRECTIVES FOR FINANCES: Directive For Finances: No TRANSPORTATION: Transportation: Family CULTURAL, LATTER DAY and/or LANGUAGE factors affecting health care/discharge planning: [...] Home Health Services: None DME Provider: Pharmacy: [facility]/pharmacy #[id number] - [place], [place] - [address] [place] [address] [facility] ([facility]) - [address] [address] [id number] - [place], [place] - [address] [facility] [facility] [address] [facility], [facility] [address] [facility] [id number] Home Health: Other: POST HOSPITAL TRANSITION PLAN: Tara Yun is 60 y/o female who was admitted to [facility] for renal colic 2/2 obstructing nephrolithiasis. Tara resides with her fiance in a single story home with 2 stairs to enter. She is independent with ADLs and ambulatory without assistance at baseline. She did not have any services prior to admission. Sukhjinder reyes works here at [facility] and will be able to drive her home when discharged. She has been enrolled in meds to beds. She has no new skilled needs for discharge. No further CM [place] Ext [phone] Pager #[phone] * Felice Givens MD - 12/04/2020 0609 [...] IR ??? Abx: 24 hours anceff ??? IMPORT SPECIALIST Meds o Continue: Albuterol Q4P, Lasix 80/d, synthroid, spironolactone, symbicort 160- 4.5 x2 QAM (Given dulera) ??? Diet: reg ??? Activity as tolerated ??? Encourage IS ??? Anticoagulation: none Dispo Planning ??? ELEAZAR: today ??? Follow up: left ureteroscopy with laser lithotripsy, TBD Future Appointments Date Time Provider Department Center 12/10/2020 9:10 [facility] PAT CALL ROOM 4 [facility] None 12/15/2020 13:15 Emigdio Veronica MD [facility] 12/17/2020 9:30 Starr Paige MD EP2 Hem/Onc [facility] 12/29/2020 10:00 Micheal Moseley MD [facility] Clin None 12/29/2020 14:30 Emigdio Veronica MD [facility] 03/13/2021 9:30 Starr Paige MD EP2 Hem/Onc [facility] FELICE GIVENS MD 12/04/2020 6:09 Weekdays from 7AM-5PM page [phone] with questions. For weekends and all other times, please page through PAS Cosigned by Lon Ortez MD at 12/04/2020 8:46 EST Associated attestation - Lon Ortez MD - 12/04/2020 0846 EST Attestation: I saw and examined the patient on 12/04/2020. I agree with the resident's findings and plans. * Dom Perera RT - 12/03/2020 1615 EST Images from [...] inhaler 180 mcg ?Discontinue Note to Pharmacy: IMPORT SPECIALIST Sig:Inhale 2 Puffs as dire... 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 Emigdio Veronica MD [facility] Internal Medicine Adult Primary Care - [place] 11/20/2020; 13:25 SUMMARY OF GUIDELINES: *Reference: Revised Cardiac Risk Index (Lema 6 independent predictors of cardiac complications): 1. High risk surgery (vascular, intraperitoneal, intrathoracic) 2. History of CAD (history of UT or a positive ETT, current ischemic chest [...] ureteral stent placement. SURGEON: Lon Ortez MD LORRY WEIGHER: Rc Anne MD ANESTHESIA: Sedation. INDICATIONS: Tara [...] of the kidney. We placed a TigerTail, 5-Sami [id number], and removed the wire and did a [...] retained. Lon Ortez MD / KM Confirmation: [id number] Dictation ID: [id number] cc: * Preprocedure Instructions - Zeina Wasserman [...] Understanding verbalized on all topics discussed. Awaiting home care chaplain transport to [facility]. CRIS ROLON RN 12/04/2020 13:19 * [...] comfortably in bed, call hines in reach, [facility]. LETI CARR RN 12/04/2020 1:26 * Plan [...] Office Visit [facility] Ophthalmology - [address] [id number] Gagandeep Rome MD [address] [place] [address], [address] [place] [phone] 02/11/2025 13:30 EDT Telemedicine [facility] Hematology & Oncology [address] [phone] Dana Padilla MD 111 [facility] 2 [place] [phone] documented as of this encounter Procedures Procedure [...] 01/14/2021 14:2 8 EST us Scan 2 Field Education Coordinator PROCEDURE/MINOR SURGICAL OR DERABLES Final Result * IMPLANT RECORD - SCANNED (12/09/2020 14:53 EST) 12/09/2020 14:5 3 EST us Scan 2 Field Education Coordinator PROCEDURE/MINOR SURGICAL OR DERABLES Final Result * (ABNORMAL) GLUCOSE, SERUM (12/04/2020 3:42 EST) Glucose 107(H) 70 - 100 mg/dL 12/04/2020 4:27 EST [facility] Blood VENOUS BLOOD / Unknown Venipuncture / Unknown 12/04/2020 3:42 EST 12/04/2020 3:59 EST Rc Anne MD CHEMISTRY & BLOOD GAS ORDERABL ES Final Result Performing Organization Address [facility] Co de Phone Number [facility] [address] [place] [address] * (ABNORMAL) CREATININE (12/04/2020 3:42 EST) Creatinine 1.28(H) 0.52 - 1.04 mg/dL 12/04/2020 4:27 EST [facility] eGFR 46(L) >60 mL/min/1.7 3m2 12/04/2020 4:27 EST [facility] Comment:eGFR calculated lobito coppola CKD-EPI equation for non- Americans. Multiply eGFR by 1.16 for patients. Blood VENOUS BLOOD / Unknown Venipuncture / Unknown 12/04/2020 3:42 EST 12/04/2020 3:59 EST Rc Anne MD CHEMISTRY & BLOOD GAS ORDERABL ES Final Result Performing Organization Address [place]/[facility] Co de Phone Number [facility] [address] [place] [address] * BUN (12/04/2020 3:42 EST) BUN 17 10 - 26 mg/dL 12/04/2020 4:27 EST [facility] Blood VENOUS BLOOD / Unknown Venipuncture / Unknown 12/04/2020 3:42 EST 12/04/2020 3:59 EST Rc Anne MD CHEMISTRY & BLOOD GAS ORDERABL ES Final Result Performing Organization Address City/[facility] Co de Phone Number [facility] [address] [place] [address] * (ABNORMAL) ELECTROLYTES (12/04/2020 3:42 EST) Sodium 135(L) 136 - 145 mEq/L 12/04/2020 4:27 [facility] Potassium 4.7 3.5 - 5.0 mEq/L 12/04/2020 4:27 [facility] Chloride 99 96 - 110 mEq/L 12/04/2020 4:27 [facility] CO2 Total 30 22 - 32 mEq/L 12/04/2020 4:27 [facility] Blood VENOUS BLOOD / Unknown Venipuncture / Unknown 12/04/2020 3:42 EST 12/04/2020 3:59 EST Rc Anne MD CHEMISTRY & BLOOD GAS ORDERABL ES Final Result Performing Organization Address City/State/[facility] Co de Phone Number [facility] [address] [place] [address] * (ABNORMAL) COMPLETE BLOOD COUNT (12/04/2020 3:42 EST) Pathologist [facility] WBC 2.30(L) 4.00 - 12.40 K/cmm 12/04/2020 4:24 [facility] RBC 3.91 3.86 - 5.04 M/cmm 12/04/2020 4:24 [facility] Hemoglobin 11.3(L) 11.6 - 15.2 gm/dL 12/04/2020 4:24 [facility] HCT 33.3(L) 34.9 - 44.4 % 12/04/2020 4:24 [facility] MCV 85 81 - 98 fl 12/04/2020 4:24 [facility] MCH 28.9 26.7 - 33.3 pg 12/04/2020 4:24 [facility] MCHC 33.9 32.1 - 35.9 gm/dL 12/04/2020 4:24 [facility] RDW-CV 14.6 <14.7 % 12/04/2020 4:24 [facility] RDW-SD 44.8 <50.4 fl 12/04/2020 4:24 EST [facility] PLT 65(L) 141 - 377 K/cmm 12/04/2020 4:24 EST [facility] MPV 9.9 9.5 - 12.7 fl 12/04/2020 4:24 EST [facility] Blood VENOUS BLOOD / Unknown Venipuncture / Unknown 12/04/2020 3:42 EST 12/04/2020 3:59 EST us Rc Anne MD HEMATOLOGY & PF4 ORDERABLES Fi nal Result [facility] [address] [place] [address] * FL C-ARM RETROGRADE (12/03/2020 12:50 EST) Narrative 12/03/2020 12:51 EST This is a non-reportable exam. Lon Ortez MD IMG OTHER IMAGING ORDERABLES Final Result * BACTERIAL CULTURE/SMEAR (12/03/2020 12:39 EST) Organism ID No Growth 12/08/2020 11:31 EST [facility] Smear Neutrophils Present 12/08/2020 11:31 EST [facility] Smear No bacteria seen 12/08/2020 11:31 EST [facility] Fluid ENTIRE KIDNEY / Unknown 12/03/2020 12:39 EST 12/03/2020 14:13 EST Lon Ortez MD MICROBIOLOGY - GENERAL ORDERA BLES Final Result [facility] [address] [place] [address] documented in this encounter Visit Diagnoses Diagnosis Nephrolithiasis- Primary Calculus of kidney Left ureteral stone Nephrolithiasis Calculus of kidney documented in this encounter Admitting Diagnoses Diagnosis [...] 2 Puff 2 Puff, inhalation, DAILY - [facility] only, First dose on Tue12/04/20 at 0630, [...] (INCRUSE ELLIPTA) 62.5 mcg/actuationIndicatio ns:COPD with asthma ([facility]) Take 1 Puff by mouth daily. Therapy [...] Routine 1603 (Given - Provider: Madeleine Marroquin RN)3317 (Given - Provider: Leti Carr RN) 0814 [...] on Tue12/04/20 at 0700, Until Discontinued, Routine 06 (Given - Provid er: Leti Carr RN) magnesium oxide (MAG-OX) tablet 400 mg 400 mg, oral, DAILY, First dose on Tue12/04/20 at 0900, Until Discontinued, Routine 811 (Given - Provid er: Cris Rolon) mometasone-formoterol (DULERA) 200-5 mcg/actuation inhaler 2 Puff 2 Puff, inhalation, DAILY - [facility] only, First dose on Tue12/04/20 at 0630, Until Discontinued 08 (Given - Provid er: Cris Rolon) senna (SENOKOT) tablet 1 Tab 1 Tablet, oral, AT BEDTIME, First dose on Tue12/03/20 at 2100, Until Discontinued, Routine 2002 (Not Given - Provider: Leti Carr RN - Reason: Patient/family refused) spironolactone (ALDACTONE) tablet 150 mg 150 mg, oral, DAILY, First dose on Tue12/04/20 at 0900, Until Discontinued, Routine 811 (Given - Provid er: Cris Rolon) TAMSulosin [...] Until Kirsten 12/04/20 at 1546, Nausea, Routine ondansetron (ZOFRAN-ODT) disintegrating tablet 4 mg(Linked Group 1) 4 mg, oral, EVERY 4 HOURS PRN, Starting on Tue12/03/20 at 1505, Until Kirsten 12/04/20 at 1546, Nausea, Routine oxybutynin (DITROPAN) tablet 5 mg 5 mg, oral, 3 TIMES DAILY PRN, Starting on Tue12/03/20 at 1324, Until Kirsten 12/04/20 at 1546, Other, bladder spasm, Routine 1333 (Given - Provider: Soni Almendarez RN)2002 (Given - Provider: Leti Carr RN) 1301 (Given - Provider: Cris Rolon) oxyCODONE (ROXICODONE) immediate release tablet 5-10 mg 5-10 mg, oral, EVERY 4 HOURS PRN, Starting on Tue12/03/20 at 1323, Until Kirsten 12/04/20 at 1546, Pain, 5mg for mild to [...] 1323, Until Tue12/04/20 at 1546, Pain, Routine 1333 (Given - Provider: Soni Almendarez RN)2002 (Given - Provider: Leti Carr RN) 0716 [...] 1505, Until Tue12/04/20 at 1546, Nausea, Routine Or ondansetron (ZOFRAN-ODT) [...] atropine 0.1 mg/mL syringe 0.5 mg 1 ceFAZolin (ANCEF) syringe 2 g 1 12/03/2020 [...] 12/03/2020 documented in this encounter Care Teams Program Professional Relationship Specialty Start Date End Date Emigdio Veronica MD [address] [place] [phone] PCP - General Internal Medicine - Primary Care 05/22/20 02/21/24 documented as of this encounter
--- OUTSIDE RECORDS SUMMARY | 2024-11-22 17:19 | XMS_ITS | Encounter Summary ---
Author Organization [facility] Address [address] [place] [address] Care Team Providers Care Livestock Counter Name Role Phone Emigdio Veronica MD Primary Care Provider + Reason for Visit * Reason Onset Date Comments Coordination Of Care 11/27/2020 Encounter Details Date Type Department Care Team (Late st Contact Info) Description 11/27/[address] 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 Spoke with the lab, they do not have any recent urine cultures for pt. documented in this encounter Plan of Treatment Upcoming Encounters Date Type Department Care Team (Late st Contact Info) Description 01/04/2025 13:[address] [facility] Ophthalmology - [address] [id number] Gagandeep Rome MD [address] [place] [address], [facility] [address] [place] [phone] 02/11/2025 13:[address] [facility] Hematology & Oncology [address] [phone] Dana Padilla MD [address] [place] [address], [facility] 2 [place] [address] documented as of this encounter Visit Diagnoses Not on filedocumented in this encounter Care Teams Livestock Counter Relationship Specialty Start Date End Date Emigdio Veronica MD [address] [place] [phone] PCP - General Internal Medicine - Primary Care 05/22/20 02/21/24 documented as of this encounter
--- OUTSIDE RECORDS SUMMARY | 2024-11-22 17:20 | XMS_ITS | Encounter Summary ---
Author Organization [facility] Address [address] [place] [address] Care Team Providers Care Coin Purse Framer Name Role Phone Emigdio Veronica MD Primary Care Provider + Reason for Visit * Reason Comments Pre-op Exam Pre-op 12/03/[address] 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 file Not on file Not o n file documented as of this encounter Last Filed Vital Signs Vital Sign Reading Time Taken Comments Blood Pressure 106/48 11/20/2020 1312 EST Pulse 80 11/20/2020 1312 EST Temperature 35.8 ??C (96.4 ??F) 11/20/2020 1312 EST Respiratory Rate 20 11/20/2020 1312 EST Oxygen Saturation - - Inhaled Oxygen Concentration - - Weight 98.6 kg (217 lb 6.4 oz) 11/20/[address] Height 161.3 cm (5' 3.5) 11/20/2020 1312 EST Body Mass Index 37.91 11/20/2020 1312 EST documented in this encounter Functional Status [...] Chao Young RN documented in this encounter Patient Instructions * Patient Instructions* Maritza Madrigal LPN - 11/20/2020 13:15 EST Quitting smoking Stopping smoking is [...] with a trained counselor. Tobacco Counseling in [facility] offers free counseling services to residents who are ready to cut back or quit using tobacco. Services include: phone coaching (NOW), online tools and support for those who would like to make changes on their own (www.[employer]version), as well as in-person group workshops. Free nicotine replacement therapy is available through all of these resources. To learn more about your options visit www.[employer].org or call NOW ( ). To speak with an in-person tobacco counselor in [facility] call, [phone]. [place] Resident, please visit: [email or web address] I hope you quit smoking. I think [...] needed for Nausea. 60 Tab 3 11/20/2020 03/30/2021 predniSONE (DELTASONE) 10 mg tablet Take 4 Tabs by mouth daily for 2 days, THEN 3 Tabs daily for 2 days, THEN 2 Tabs daily for 2 days, THEN 1 Tab daily for 2 days. 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 Emigdio Veronica MD [facility] Internal Medicine Adult Primary Care - [place] 11/20/2020; 13:25 SUMMARY OF GUIDELINES: *Reference: Revised Cardiac Risk Index (Lema 6 independent predictors of cardiac complications): 1. High risk surgery (vascular, intraperitoneal, intrathoracic) 2. History of CAD (history of RI or a positive ETT, current ischemic chest pain, use of nitrates, or Q waves on ECG with pathological Q waves. (Don't count previous CABG unless another of the factorsis present) 3. Hx CHF 4. Hx Stroke 5. Cr >2.0 mg/dl 6. DM on insulin documented in this encounter Plan of Treatment Upcoming Encounters Date Type Department Care Team (Late st Contact Info) Description 01/04/2025 13:00 EST Office Visit [facility] - [address] [phone] Gagandeep Rome MD [address] [place] [address] 5 [place] [phone] 02/11/2025 13:30 EDT Telemedicine [facility] Hematology & Oncology - [address] [phone] Dana Padilla MD [address] [place] [address], [facility] [address] [place] [phone] documented as of this encounter Visit Diagnoses Diagnosis Pre-op examination- Primary Preoperative examination, unspecified COPD exacerbation ([facility]) Obstructive chronic bronchitis with exacerbation Thrombocytopenia ([facility]) Thrombocytopenia, unspecified Nephrolithiasis Calculus of kidney documented in this encounter Discontinued Medications Medication Sig Discontinue Reason Start Date End Da te ondansetron (ZOFRAN) 4 mg tablet TAKE 1 TAB BY MOUTH 2 TIMES DAILY NEEDED FOR NAUSEA. Reorder 09/02/2020 11/20/2020 documented as of this encounter Care Teams Coin Purse Framer Relationship Specialty Start Date End Date Emigdio Veronica MD [address] [place] [phone] PCP - General Internal Medicine - Primary Care 05/22/20 02/21/24 documented as of this encounter
--- OUTSIDE RECORDS SUMMARY | 2024-11-22 17:20 | XMS_ITS | Encounter Summary ---
Author Organization [facility] Address [address] [place] [address] Care Team Providers Care Truckman Name Role Phone Emigdio Veronica MD Primary Care Provider + Starr Paige MD Unavailable Dana Padilla MD Unavailable Izabella Snowden [facility] Unavailable [phone] None, Provider Primary Care Provider UnavailGabriel Dacosta Primary Care Provider Mirna Guerrero Primary Care Provider + Reason for Visit * Reason Onset Date Comments Discuss Surgery 11/18/2020 december 03 kid shelby stone removal Review Treatment Options 11/18/2020 need to discuss platelets and being seen by Dr. Paige. Encounter Details Date Type Department Care Team (Late st Contact Info) Description 11/18/2020 Telephone [facility] Hematology & Oncology - [facility] [address] [place] [address] Starr Paige MD [address] [place] [address] Discuss Surgery (december 03 kidney stone removal ); Review Treatment Options (need to discuss platelets and being seen by Dr. Paige. 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 Answer Date of Assessment Author No 04/26/2020 7:00 EDT Chao Saravia say, RN * Are you blind or do you have serious difficulty seeing, even when wearing glasses? Answer Date of Assessment Author No 04/26/2020 7:00 DAVIDT Chao Saravia say, RN * Do you have serious difficulty walking or climbing stairs? (5 years old or older) Answer Date of Assessment Author No 04/26/2020 7:00 EDT Chao Saravia say, RN * Do you have difficulty dressing or bathing? (5 years old or older) Answer Date of Assessment Author No 04/26/2020 7:00 EDT Chao Saravia RN * Because of a physical, mental, or emotional condition, do you have difficulty doing errands alone such as visiting a doctor's office or shopping? (15 years old or older) Answer Date of Assessment Author No 04/26/2020 7:00 EDT Chao Saravia RN documented as of this encounter Mental Status * Because of a physical, mental, or emotional condition, do you have serious difficulty concentrating, remembering, or making decisions? (5 years old or older) Answer Entry Date Author No 04/26/2020 7:00 EDT Chao Saravia RN documented in this encounter Miscellaneous Notes * Telephone Encounter - Katherin Werner RN - 11/18/2020 1038 EST Pt scheduled and notified. See telephone call from 11/12 for documentation. * Telephone Encounter - Aris Youngblood - 11/18/2020 0907 EST Patient is having surgery on Dec 03 for kidney stone removal. She was told to call and make appointment with to set up a plan regarding platelets before surgery. She would like a call back to discuss that treatment plan. Thank you documented in this encounter Plan of Treatment Upcoming Encounters Date Type Department Care Team (Late st Contact Info) Description 01/04/2025 13:00 EST Office Visit [facility] Ophthalmology - [address] [phone] Gagandeep Rome MD [address] [place] [address], [address] [place] [phone] 02/11/2025 13:30 EDT Telemedicine [facility] H[facility] On[facility] [address] [address] Dana Padilla MD [address] [facility], [address] [place] [phone] documented as of this encounter Visit Diagnoses [...] documented as of this encounter Care Teams Truckman Relationship Specialty Start Date End Date Emigdio Veronica MD [address] [place] [phone] PCP - General Internal Medicine - Primary Care 05/22/20 02/21/24 None, Provider PCP - General 02/24/24 03/18/24 Gabriel Gandara PA PCP - General 03/19/24 09/11/24 Mirna Guerrero PA [address] [place] [phone] PCP - General 09/12/24 Starr Paige MD [address] [place] [phone] Hematology 10/08/21 06/09/22 Dana Padilla MD [address] [facility], [address] [place] [address] Hematology 01/13/22 06/09/22 Izabella Snowden, [facility] 1 [facility], [address] [place] [address] Supervisor Painting Shipyard 02/21/23 05/03/24 documented as of this encounter
--- OUTSIDE RECORDS SUMMARY | 2024-11-22 17:20 | XMS_ITS | Encounter Summary ---
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 Daily Max: 10 mg 10 Tab 10/21/2020 10/29/2020 documented in this encounter Miscellaneous Notes * Telephone Encounter - Heike Mcleod RN - 10/21/2020 1420 EST Call to Patient Relayed message per Dr Fernandez Pt has CT at [facility] at 4:30 pm today F/u scheduled to discuss on 11/06 States she has gained 8 lbs since last wk on 10/15 Was 217.8 lbs this AM Taking lasix 80 mg daily and spironolactone 100 mg daily Increase? To dr fernandez * Telephone Encounter - Emigdio Fernandez MD - 10/21/2020 1103 EST We are rapidly approaching a place where I am no longer comfortable prescribing this medication. I agree that we need that CT scan performed SHON. The patient has a chronic pain history and a drug seeking behavior history. She also does have a history of nephrolithiasis which is why I gave her the benefit of the doubt and extended these opiates until a scan could be performed. The scan has not been completed, but that may not be her fault. I will extend her prescription with 10 more tablets. She should use them extremely sparingly. This will be the last refill she receives until the scan results return. We will discuss her management after the results return. * Telephone Encounter - Karol Hoff RN - 10/21/2020 1005 EST Please advised based on Karol Copeland's conversation with patient below. * Telephone Encounter - Dinorah, Sarah - 10/21/2020 0940 EST Pt looking for refill on this medication, aware this is not for chronic use per last OV. Pt has not had CT done yet, Brian Cooley has not reached out to pt to schedule, order faxed tothem on Tuesday, 10.17.20. Gave pt phone# to [facility] to see if she can get scheduled today. * Telephone Encounter - Karol Copeland - 10/21/2020 0937 EST Requested Prescriptions Pending Prescriptions Disp Refills ??? oxyCODONE (ROXICODONE) 5 mg immediate release tablet 10 Tab 0 Sig: Take 1 Tab by mouth 2 times daily as needed for Pain. Daily Max: 10 mg [facility]/pharmacy #[id number] Confirmed Pharmacy? Yes Patient out of medication? Yes: Needs Refill Now, will run out tonight. Last Refill Date: 10.15.20 Refills left? (explain exceptions requiring early refill) No Recent Visits Date Type Provider Dept 10/15/20 Office Visit Emigdio Fernandez MD [facility] 10/10/20 Appointment Emigdio Fernandez MD [facility] 09/05/20 Office Visit Emigdio Fernandez MD [facility] 08/22/20 Office Visit Emigdio Fernandez MD [facility] 08/01/20 Office Visit Emigdio Fernandez MD [facility] 06/23/20 Office Visit Emigdio Fernandez MD [facility] 05/29/20 Office Visit Emigdio Fernandez MD [facility] 05/22/20 Office Visit Emigdio Fernandez MD [facility] Showing recent visits within past 540 days with a meds authorizing provider and meeting all other requirements Future Appointments Date Type Provider Dept 12/15/20 Appointment Emigdio Fernandez MD [facility] Showing future appointments within next 150 days with a meds authorizing provider and meeting all other requirements Future appointment: Already Scheduled Karol Dinorah 10/21/2020 9:37 documented in this encounter Plan of Treatment Upcoming Encounters Date Type Department Care Team (Late st Contact Info) Description 01/04/2025 13:00 EST Office Visit [facility] Ophthalmology - [address] [phone] Gagandeep Rome MD [address] [place] [address] 5 [place] [phone] 02/11/2025 13:30 EDT Telemedicine [facility] Hematology & Oncology [address] [phone] Dana Padilla MD [address] [place] [address] 2 [place] [phone] documented as of this encounter Visit Diagnoses Not on filedocumented in this encounter Discontinued Medications Medication Sig Discontinue Reason Start Date End Da te oxyCODONE (ROXICODONE) 5 mg immediate release tablet Take 1 Tab by mouth 2 times daily as needed for Pain. Daily Max: 10 mg Reorder 10/15/2020 10/21/2020 documented as of this encounter Care Teams Offender Employment Specialist Relationship Specialty Start Date End Date Emigdio Fernandez MD [address] [place] [phone] PCP - General Internal Medicine - Primary Care 05/22/20 02/21/24 documented as of this encounter
--- OUTSIDE RECORDS SUMMARY | 2024-11-22 17:20 | XMS_ITS | Encounter Summary ---
Author Organization [facility] Address [address] [place] [address] Care Team Providers Care Home Based Assistant Name Role Phone Emigdio Veronica MD Primary Care Provider + Reason for Visit * Reason Onset Date Comments Labs Only 11/11/[address] [facility] Encounter Details Date Type Department Care Team (Late st Contact Info) Description 11/11/2020 Telephone [facility] Urology - [address] [address] Lon Ortez MD [address] [facility], [address] [place] [address] Labs Only (Sent to 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 * Telephone Encounter - Arely Canales - 11/11/[address] [facility] lab and they do not have the order for her Urine test. Please fax order to [phone] She has an appointment for 4:15pm on documented in this encounter Plan of Treatment Upcoming Encounters Date Type Department Care Team (Late st Contact Info) Description 01/04/2025 13:00 EST Office Visit [facility] Ophthalmology - [address] [phone] Gagandeep Rome MD [address] [place] [address] 5 [place] [phone] 02/11/2025 13:30 EDT Telemedicine [facility] Hematology & Oncology - [address] [phone] Dana Padilla MD [address] [place] [address], [address] [place] [phone] documented as of this encounter Visit Diagnoses Not on filedocumented in this encounter Care Teams Home Based Assistant Relationship Specialty Start Date End Date Emigdio Veronica MD [address] [place] [address] PCP - General Internal Medicine - Primary Care 05/22/20 02/21/24 documented as of this encounter
--- OUTSIDE RECORDS SUMMARY | 2024-11-22 17:20 | XMS_ITS | Encounter Summary ---
Author Organization [facility] Address [address] [place] [address] Care Team Providers Care French Teacher Name Role Phone Emigdio Veronica MD Primary Care Provider + Reason for Visit * (Routine) - Receiving Office to Obtain Authorization Specialty Diagnoses / Procedures Referred By Contac t Referred To Contact Procedures CT OUTSIDE IMAGES BODY Unknown, Provider, MD Referral ID Status Reason Start Date Expiration Date Visits Requested Visits Authorized [id number] Receiving Office to Obtain Authorization 11/28/2020 1 1 Encounter Details Date Type Department Care Team (Latest Contact Info) Description 10/21/2020 - 10/21/2020 23:59 EST Hospital Encounter [facility] Secondary Reads [place] Discharge Disposition: [...] 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 90 Tab 3 08/01/2020 1 LEVOTHYROXINE SODIUM (LEVOTHYROXINE ORAL) Take 25 mcg by mouth daily. Unknown dose 0 magnesium oxide (MAG-OX) 400 mg (241.3 mg magnesium) tablet Take 1 Tab by mouth daily. 200 Tab 1 09/05/2020 1 ondansetron (ZOFRAN) 4 mg tablet TAKE 1 TAB BY MOUTH 2 TIMES DAILY NEEDED FOR NAUSEA. 30 Tab 1 09/02/2020 0 oxyCODONE (ROXICODONE) 5 mg immediate release tablet Take 1 Tab by mouth 2 times daily as needed for Pain. Daily Max: 10 mg 10 Tab 10/21/2020 0 SENNA LAXATIVE 8.6 mg tablet TAKE 1 TABLET BY MOUTH EVERYDAY AT BEDTIME 30 Tab 11 09/01/2020 1 sertraline (ZOLOFT) 25 mg tablet Take 25 mg by mouth daily. 10/10/2020 1 spironolactone (ALDACTONE) 100 mg tablet Take 1 Tab by mouth daily. 90 Tab 3 08/01/2020 1 SYMBICORT 160-4.5 mcg/actuation HFA aerosol inhaler inhalerIndicatio ns:COPD with asthma ([facility]) Inhale 2 Puffs as directed daily. 1 Inhaler 11 06/20/2020 1 tamsulosin (FLOMAX) 0.4 mg capsule Take 1 Cap by mouth daily. 30 Cap 11 02/19/2020 1 umeclidinium (INCRUSE ELLIPTA) 62.5 mcg/actuationInd ications:COPD with asthma ([facility]) Take 1 Puff by mouth daily. 1 Each 06/20/2020 1 documented as of this encounter Discharge Disposition Disposition Code Departure Means Destination Home or Self Care documented in this encounter Plan of Treatment Upcoming Encounters Date Type Department Care Team (Late st Contact Info) Description 01/04/2025 13:00 EST Office Visit [facility] Ophthalmology [address] [phone] Gagandeep Rome MD [address] [place] [address] 5 [place] [phone] 02/11/2025 13:30 EDT Telemedicine [facility] Hematology & Oncology [address] [phone] Dana Padilla MD [address] [place] [address] 2 [place] [phone] documented as of this encounter Procedures Procedure Name Priority Date/Time Associated Diagnosis Comments CT OUTSIDE IMAGES BODY Routine 11/28/2020 13:28 EST documented in this encounter Results * CT OUTSIDE IMAGES BODY (11/28/2020 13:28 EST) Narrative 11/28/2020 13:28 EST This is a non-reportable exam. us Provider Unknown MD THAKKAR OTHER IMAGING ORDERABLES Final Result documented in this encounter Visit Diagnoses Not on filedocumented in this encounter Care Teams French Teacher Relationship Specialty Start Date End Date Emigdio Veronica MD [address] [place] [address] PCP - General Internal Medicine - Primary Care 05/22/20 02/21/24 documented as of this encounter
--- OUTSIDE RECORDS SUMMARY | 2024-11-22 17:20 | XMS_ITS | Encounter Summary ---
Author Organization [facility] Address [address] [place] [address] Care Team Providers Care International Affairs Vice President Name Role Phone Emigdio Veronica MD Primary Care Provider + Reason for Visit * Reason Comments Back Pain Hematuria poct urine dipstick ran today Encounter Details Date Type Department Care Team (Late st Contact Info) Description 10/10/2020 10:30 EST Office Visit [facility] Adult Primary Care - [place] [address] [place] [address] Scottie Campuzano PA-C [address] [place] [address] Lumbar back pain (Primary Dx); Hematuria, unspecified type Social History Tobacco Use Types [...] 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 For patients, please refer to guidance in [email or web address] on how to locate information. Generally this information will appear as a scanned documents saved in My Documents activity. documented in this encounter Plan of Treatment Upcoming Encounters Date Type Department Care Team (Late st Contact Info) Description 01/04/2025 13:00 EST Office Visit [facility] Ophthalmology - [address] [place] [address] [phone] Gagandeep Rome MD [address] [place] [address] 5 [place] [phone] 02/11/2025 13:30 EDT Telemedicine [facility] Hematology & Oncology - [address] [place] [address] [phone] Dana Padilla MD [address] [place] [address], [facility] 2 [place] [phone] documented as of this encounter Visit Diagnoses Diagnosis Lumbar back pain- Primary Lumbago Hematuria, unspecified type documented in this encounter Care Teams International Affairs Vice President Relationship Specialty Start Date End Date Emigdio Veronica MD [address] [place] [phone] PCP - General Internal Medicine - Primary Care 05/22/20 02/21/24 documented as of this encounter
--- OUTSIDE RECORDS SUMMARY | 2024-11-22 17:20 | XMS_ITS | Encounter Summary ---
Author Organization [facility] Address [address] [place] [address] Care Team Providers Care Financial Operations Consultant Name Role Phone Emigdio Veronica MD Primary Care Provider + Starr Paige MD Unavailable Dana Padilla MD Unavailable Izabella Snowden [facility] Unavailable [phone] None, Provider Primary Care Provider UnavailGabriel Dacosta Primary Care Provider Mirna Guerrero Primary Care Provider + Reason for Visit * Reason Onset Date Comments Pre-procedure 11/12/2020 platelet transfu sions Encounter Details Date Type Department Care Team (Late st Contact Info) Description 11/12/2020 Telephone [facility] Hematology & Oncology - [facility] [address] [place] [address], [place] [phone] Starr Paige MD [address] [place] [phone] Pre-procedure (platelet transfusions) Social History Tobacco Use Types Packs/Day Years [...] 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 (5 years old or older) Answer Date of Assessment Author No 04/26/2020 7:00 Chao Young say, RN * Because of a physical, mental, [...] Encounter - Katherin Werner RN - 11/18/2020 1033 EST 1033 Called pt and advised Dr. Valencia would like to have a conversation with her before proceeding with plan. Offered telemed (phone call) tomorrow at 1030am which she accepts. She verbalized understanding and was thankful for the call. No barriers to learning identified. * Telephone Encounter - Jossue Lopez - 11/12/2020 1248 EST Patient calling to discuss platelet transfusions before kidney stone operation with Dr. Ortez on 12/03. Is there an alternative? Please call. documented in this encounter Plan of Treatment Upcoming Encounters Date Type Department Care Team (Late st Contact Info) Description 01/04/2025 13:00 EST Office Visit [facility] Ophthalmology - [address] [phone] Gagandeep Rome MD [address] [place] [address] 5 [place] [phone] 02/11/2025 13:30 EDT Telemedicine [facility] Hematology & Oncology [address] [phone] Dana Padilla MD [address] [place] [address], [facility] 2 [place] [address] documented as of this encounter Visit Diagnoses Diagnosis Thrombocytopenia, unspecified ([facility])- Primary Thrombocytopenia, unspecified documented in this encounter Additional Health Concerns [...] documented as of this encounter Care Teams Financial Operations Consultant Relationship Specialty Start Date End Date Emigdio Veronica MD [address] [place] [address] PCP - General Internal Medicine - Primary Care 05/22/20 02/21/24 None, Provider PCP - General 02/24/24 03/18/24 Gabriel Gandara PA PCP - General 03/19/24 09/11/24 Mirna Guerrero PA [address] [place] [address] PCP - General 09/12/24 Starr Paige MD [address] [place] [phone] Hematology 10/08/21 06/09/22 Dana Padilla MD 111 [facility], [facility], Level 2 [place] [address] Hematology 01/13/22 06/09/22 Izabella Snowden, [facility] 1 [facility], 3rd [place] [address] Belt Glass Sander 02/21/23 05/03/24 documented as of this encounter
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
--- OUTSIDE RECORDS SUMMARY | 2024-11-22 17:20 | XMS_ITS | Encounter Summary ---
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 Please send. documented in this encounter Plan of Treatment Upcoming Encounters Date Type Department Care Team (Late st Contact Info) Description 01/04/2025 13:00 EST Office Visit [facility] Ophthalmology - [address] [phone] Gagandeep Rome MD [address] [place] [address] 5 [place] [phone] 02/11/2025 13:30 EDT Telemedicine [facility] Hematology & Oncology - [address] [phone] Dana Padilla MD [address] [place] [address], [facility] 2 [place] [address] documented as of this encounter Visit Diagnoses Not on filedocumented in this encounter Care Teams Custom Clothier Relationship Specialty Start Date End Date Emigdio Veronica MD [address] [place] [phone] PCP - General Internal Medicine - Primary Care 05/22/20 02/21/24 documented as of this encounter
--- OUTSIDE RECORDS SUMMARY | 2024-11-22 17:20 | XMS_ITS | Encounter Summary ---
Author Organization [facility] Address [address] [place] [address] Care Team Providers Care Contamination Consultant Name Role Phone Emigdio Veronica MD Primary Care Provider + Starr Paige MD Unavailable [phone] Dana Padilla MD Unavailable Reason for Visit * Reason Onset Date Comments COVID-19 11/25/2020 Encounter Details Date Type Department Care Team (Late st Contact Info) Description 11/25/2020 Telephone [facility] [address] [place] [address] Lon Ortez MD 111 [facility], Level [address] [place] [address] COVID-19 Social History Tobacco Use [...] 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 Requested a call back [phone]. This is our 1st attempt at contacting patient documented in this encounter Plan of Treatment Upcoming Encounters Date Type Department Care Team (Late st Contact Info) Description 01/04/2025 13:00 EST Office Visit [facility] Ophthalmology - [address] [phone] Gagandeep Rome MD [address] [place] [address] 5 [place] [phone] 02/11/2025 13:30 EDT Telemedicine [facility] Hematology & Oncology [address] [phone] Dana Padilla MD [address] [place] [address], [facility] 2 [place] [phone] documented as of this encounter Visit Diagnoses Not on filedocumented in this encounter Additional Health Concerns Infection Onset Date Last Indicated Resolved Time R/O COVID-19 Comment:Covid negative 04/13/2021 04/13/2021 04/13/2021 17:49 EDT R/O COVID-19 06/12/2021 06/12/2021 06/12/2021 23:4 3 EDT R/O COVID-07/10/2021 07/14/2021 07/14/2021 23:3 2 EDT R/O COVID-19 10/08/2021 10/08/2021 10/08/2021 18:1 8 EST R/O COVID-19 12/14/2021 12/14/2021 12/19/2021 22:1 5 EST documented as of this encounter Care Teams Contamination Consultant Relationship Specialty Start Date End Date Emigdio Veronica MD 2 [place] [address] PCP - General Internal Medicine - Primary Care 05/22/20 02/21/24 Starr Paige MD [address] [place] [phone] Hematology 10/08/21 06/09/22 Dana Padilla MD [address] [place] [address] 2 [place] [address] Hematology 01/13/22 06/09/22 documented as of this encounter
--- OUTSIDE RECORDS SUMMARY | 2024-11-22 17:20 | XMS_ITS | Encounter Summary ---
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 Daily Max: 10 mg 30 Tab 11/18/2020 1 oxyCODONE (ROXICODONE) 5 mg immediate release tablet Take 1 Tab by mouth at bedtime as needed for Pain. Daily Max: 5 mg 30 Tab 11/18/2020 0 documented in this encounter Miscellaneous Notes * Telephone Encounter - Noemi Hall - 11/19/2020 1019 EST Spoke with pharmacy. All set * Telephone Encounter - Emigdio Fernandez MD - 11/18/2020 1725 EST I would give them my verbal ok to fill early. I'm not sure what alternative they suggest. Do they want us to fa the order with my signature? * Telephone Encounter - Noemi Hall - 11/18/2020 1538 EST The insurance says its too soon to refill this new script and it needs to have something from the provider overriding it and filling it. * Addendum Note - Emigdio Fernandez MD - 11/18/2020 1455 ESTAddended by: EMIGDIO FERNANDEZ III on: 11/18/2020 14:55 Modules accepted: Orders * Telephone Encounter - Emigdio Fernandez MD - 11/18/2020 1454 EST Script adjusted * Telephone Encounter - Zully Guerrier - 11/18/2020 1429 EST Pt calling as the Pharmacy are saying that the insurance wont cover the oxycodone unless it is ordered for 1 tablet in morning and 1 tablet at night. Previously Dr Fernandez had orderd the medication for twice a day and then the last script it was changed to 1 times daily and the patient didn't realize this change. Pt is requesting that the Provider ordered is as 1 tab twice a day to see her through to her surgery on 12/03/2020 * Telephone Encounter - Heike Mcleod RN - 11/18/2020 0933 EST Pt is all out of medication(early) Has upcoming surgery on 12/[address] fernandez to advise (has upcoming appt with you ) * Telephone Encounter - Xuan Jimenez - 11/18/2020 0919 EST Requested Prescriptions Pending Prescriptions Disp Refills ??? oxyCODONE (ROXICODONE) 5 mg immediate release tablet 10 Tab 0 Sig: Take 1 Tab by mouth at bedtime as needed for Pain. Daily Max: 5 mg [facility]/pharmacy #[id number] - [address] Patient is out of medication and having a lot pain and would like enough to get through until she has her surgery to remove kidney stones Confirmed Pharmacy? Yes Patient out of medication? Yes: Needs Refill Now Last Refill Date: 11/10/2020 Refills left? (explain exceptions requiring early refill) No Recent Visits Date Type Provider Dept 10/15/20 Office Visit Emigdio Fernandez MD [facility] 10/10/20 Appointment Scottie Campuzano PA-C [facility] 10/10/20 Appointment Emigdio Fernandez MD [facility] 09/05/20 Office Visit Emigdio Fernandez MD [facility] 08/22/20 Office Visit Emigdio Fernandez MD [facility] 08/01/20 Office Visit Emigdio Fernandez MD [facility] 06/23/20 Office Visit Emigdio Fernandez MD [facility] 05/29/20 Office Visit Emigdio Fernandez MD [facility] 05/22/20 Office Visit Emigdio Fernandez MD [facility] Showing recent visits within past 540 days with a meds authorizing provider and meeting all other requirements Future Appointments Date Type Provider Dept 11/20/20 Appointment Emigdio Fernandez MD [facility] 11/20/20 Appointment Emigdio Fernandez MD [facility] 12/15/20 Appointment Emigdio Fernandez MD [facility] Showing future appointments within next 150 days with a meds authorizing provider and meeting all other requirements Future appointment: Already Scheduled Xuan Jimenez 11/18/2020 9:19 documented in this encounter Plan of Treatment Upcoming Encounters Date Type Department Care Team (Late st Contact Info) Description 01/04/2025 13:00 EST Office Visit [facility] Ophthalmology - [address] [phone] Gagandeep Rome MD [address] [place] [address], [facility] 5 [place] [phone] 02/11/2025 13:30 EDT Telemedicine [facility] Hematology & Oncology [address] [phone] Dana Padilla MD [address] [place] [address], [facility] 2 [place] [address] documented as of this encounter Visit Diagnoses Not on filedocumented in this encounter Discontinued Medications Medication Sig Discontinue Reason Start Date End Da te oxyCODONE (ROXICODONE) 5 mg immediate release tablet Take 1 Tab by mouth at bedtime as needed for Pain. Daily Max: 5 mg Reorder 11/10/2020 11/18/2020 oxyCODONE (ROXICODONE) 5 mg immediate release tablet Take 1 Tab by mouth at bedtime as needed for Pain. Daily Max: 5 mg 11/18/2020 11/18/2020 documented as of this encounter Care Teams Raw Stock Machine Loader Relationship Specialty Start Date End Date Emigdio Fernandez MD [address] [place] [phone] PCP - General Internal Medicine - Primary Care 05/22/20 02/21/24 documented as of this encounter
--- OUTSIDE RECORDS SUMMARY | 2024-11-22 17:20 | XMS_ITS | Encounter Summary ---
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 Yes Patient out of medication? No has enough for weekend Last Refill Date: 04.26.20 Refills left? (explain exceptions requiring early refill) No Recent Visits Date Type Provider Dept 10/15/20 Office Visit Emigdio Veronica MD [facility] 10/10/20 Appointment Scottie Campuzano PA-C [facility] 10/10/20 Appointment Emigdio Veronica MD [facility] 09/05/20 Office Visit Emigdio Veronica MD [facility] 08/22/20 Office Visit Emigdio Veronica MD [facility] 08/01/20 Office Visit Emigdio Veronica MD [facility] 06/23/20 Office Visit Emigdio Veronica MD [facility] 05/29/20 Office Visit Emigdio Veronica MD [facility] 05/22/20 Office Visit Emigdio Veronica MD [facility] Showing recent visits within past 540 days with a meds authorizing provider and meeting all other requirements Future Appointments Date Type Provider Dept 11/06/20 Appointment Emigdio Veronica MD [facility] 12/15/20 Appointment Emigdio Veronica MD [facility] Showing future appointments within next 150 days with a meds authorizing provider and meeting all other requirements Future appointment: Already Scheduled Noemi Hall 10/31/2020 16:44 documented in this encounter Plan of Treatment Upcoming Encounters Date Type Department Care Team (Late st Contact Info) Description 01/04/2025 13:00 EST Office Visit [facility] Ophthalmology - [address] [phone] Gagandeep Rome MD 111 [facility], [facility] 5 [place] [phone] 02/11/2025 13:30 EDT Telemedicine [facility] Hematology & Oncology - [address] [phone] Dana Padilla MD 111 [facility], [facility] 2 [place] [address] documented as of this encounter Visit Diagnoses Not on filedocumented in this encounter Discontinued Medications Medication Sig Discontinue Reason Start Date End Da te LEVOTHYROXINE SODIUM (LEVOTHYROXINE ORAL) Take 25 mcg by mouth daily. Unknown dose Reorder 11/03/2020 documented as of this encounter Care Teams Ediphone Operator Relationship Specialty Start Date End Date Emigdio Veronica MD 2 [place] [phone] PCP - General Internal Medicine - Primary Care 05/22/20 02/21/24 documented as of this encounter
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
--- OUTSIDE RECORDS SUMMARY | 2024-11-22 17:20 | XMS_ITS | Encounter Summary ---
Author Organization [facility] Address [address] [place] [address] Care Team Providers Care Technology Risk Intern Name Role Phone Emigdio Veronica MD Primary Care Provider + Starr Paige MD Unavailable [phone] Dana Padilla MD Unavailable Reason for Visit * Reason Onset Date Comments Appointment Related 11/10/2020 Encounter Details Date Type Department Care Team (Late st Contact Info) Description 11/10/2020 Telephone [facility] Sleep Program - [address] [address] Unknown, Provider, Appointment Related Social History Tobacco Use Types [...] 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 Not on [...] No 04/26/2020 7:00 Chao Young, RN * Because of a physical, mental, [...] encounter Miscellaneous Notes * Telephone Encounter - Lydia Mcduffie - 11/10/2020 1055 EST Called pt x2 to schedule URGT SPLIT PSG 2:1 [id number] PAT5 11.27.2020 @ 1999 documented in this encounter Plan of Treatment Upcoming Encounters Date Type Department Care Team (Late st Contact Info) Description 01/04/2025 13:00 EST Office Visit [facility] Ophthalmology - [address] [phone] Gagandeep Rome MD [address] [place] [address] 5 [place] [phone] 02/11/2025 13:30 EDT Telemedicine [facility] Hematology & Oncology - [address] [phone] Dana Padilla MD [address] [place] [address] 2 [place] [phone] documented as of this encounter Visit Diagnoses [...] documented as of this encounter Care Teams Technology Risk Intern Relationship Specialty Start Date End Date Emigdio Veronica MD 2 [place] [address] PCP - General Internal Medicine - Primary Care 05/22/20 02/21/24 Starr Paige MD [facility] [address] [place] [phone] Hematology 10/08/21 06/09/22 Dana Padilla MD 111 [facility] 2 [place] [phone] Hematology 01/13/22 06/09/22 documented as of this encounter
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
--- OUTSIDE RECORDS SUMMARY | 2024-11-22 17:20 | XMS_ITS | Encounter Summary ---
Author Organization [facility] Address [address] [place] [address] Care Team Providers Care Funeral Planner Name Role Phone Emigdio Veronica MD Primary Care Provider + Reason for Visit * Reason Comments Nephrolithiasis Encounter Details Date Type Department Care Team (Late st Contact Info) Description 11/10/2020 16:15 EST Telemedicine [facility] Urology - [address] [phone] Lon Ortez MD 111 [facility], Level [address] [place] [address] Nephrolithiasis (Primary Dx) Social History [...] Industry Job Start Date Job End Date [employer]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 Daily Max: 5 mg 10 Tab 11/10/2020 0 documented in this encounter Progress Notes * Lon Ortez MD - 11/10/2020 1611 EST Chief Complaint: No chief complaint on file. HPI: Tara is a 60 y.o. female with a history of nephrolithiasis. She has had about 3 weeks of severe left flank pain responsive to oxycodone. She had a CT scan at [facility] and Richi have the report but do not have access to the images showing a possible left mid ureteral stone.She has not had fevers or chills. Medications Current Outpatient Medications: [...] Unknown dose, Disp: 90 Tab,Rfl: 3 ??? magnesium oxide (MAG-OX) 400 mg (241.3 mg magnesium) tablet, Take 1 Tab by mouth daily., Disp: 200 Tab, Rfl: 1 ??? ondansetron (ZOFRAN) 4 mg tablet, TAKE 1 TAB BY MOUTH 2 TIMES DAILY NEEDED FOR NAUSEA., Disp: 30 Tab, Rfl: 1 ??? oxyCODONE (ROXICODONE) 5 mg immediate release tablet, Take 1 Tab by mouth at bedtime as needed for Pain. Daily Max: 5 mg, Disp: 10 Tab, Rfl: 0 ??? OXYGEN-AIR DELIVERY SYSTEMS MISC, by misc (non-drug; combo route) route., Disp: , Rfl: ??? SENNA LAXATIVE 8.6 [...] LABALBU 3.6 08/22/2020 Impression: Patient with a left 4 mm mid ureteral stone and left flank pain. I discussed with her the treatment options including another several week trial of stone passage as opposed to getting it out here in the next week. She is at high risk for surgery due to her hematologic disorder and she will need preoperative clearance from her hide or skin buffer. I did prescribe her a limited number of oxycod one tablets and will plan for surgery mid November if she does not pass it. Plan: Urine culture at [facility] Follow-up in 2 weeks Preoperative clearance from her hide or skin buffer Plan for OR for left ureteroscopy with stenting in mid November Lon Ortez MD This note has been prepared with voice recognition software. Please excuse district manager postal service errors. Patient consented to a phone visit. I spent a total of 9 minutes with Tara Yun today and 9 minutes of that time was spent in counseling and coordination of care as described in the progress note. documented in this encounter Plan of Treatment Upcoming Encounters Date Type Department Care Team (Late st Contact Info) Description 01/04/2025 13:00 EST Office Visit [facility] Ophthalmology - [address] [phone] Gagandeep Rome MD [address] [place] [address] 5 [place] [phone] 02/11/2025 13:30 EDT Telemedicine [facility] Hematology & Oncology - [address] [address] Dana Padilla MD [address] [place] [address], Level [address] [place] [phone] documented as of this encounter Visit Diagnoses Diagnosis Nephrolithiasis- Primary Calculus of kidney documented in this encounter Discontinued Medications Medication Sig Discontinue Reason Start Date End Da te oxyCODONE (ROXICODONE) 5 mg immediate release tablet Take 1 Tab by mouth 2 times daily as needed for Pain. Daily Max: 10 mg Alternate therapy 10/29/2020 11/10/2020 documented as of this encounter Orders Case Request Count Last Ordered Date First Orde red Date CASE REQUEST OPERATING ROOM 1 11/10/2020 documented in this encounter Care Teams Funeral Planner Relationship Specialty Start Date End Date Emigdio Veronica MD 2 [place] [phone] PCP - General Internal Medicine - Primary Care 05/22/20 02/21/24 documented as of this encounter
--- OUTSIDE RECORDS SUMMARY | 2024-11-22 17:20 | XMS_ITS | Encounter Summary ---
Author Organization [facility] Address [address] [place] [address] Care Team Providers Care Mold Filler Plastic Dolls Name Role Phone Emigdio Veronica MD Primary Care Provider + Reason for Visit * Reason Onset Date Comments Appointment Related 10/29/2020 Appointment Related 10/29/2020 CT scan arri olga from [facility] Follow-up 10/30/2020 Follow-up 10/31/2020 Telemedicine Phone Call 11/04/2020 Encounter Details Date Type Department Care Team ([facility] Contact Info) Description 10/29/2020 Telephone [facility] Urology - [facility] [address] [place], [place] [phone] Lon Ortez MD 111 [facility], Level [address] [place] [address] Appointment Related; Appointment Related (CT scan arrived from 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 (5 years old or older) Answer Entry Date Author No 04/26/2020 7:00 EDT Chao Saravia, RN documented in this encounter Miscellaneous Notes * Telephone Encounter - Meghna Kenney - 11/04/2020 1427 EST Spoke with pt, scheduled Telemed phone call for 11/10 @ 4:15 pm. * Telephone Encounter - Meghna Kenney - 11/03/2020 1207 EST Called pt, no answer, VM not set up. Per Dr. Ortez: Looks like she may have a small left sided stone, likely will pass on its own but please set her up to chat with me next available. Telemed appt needs to be scheduled. * Telephone Encounter - Marcel Tamez - 10/31/2020 1618 EST Reason for Call: Appointment Related, Appointment Related (CT scan arrived from [facility]), Follow-up, and Follow-up Summary/Symptoms: Patient calling again to get scheduled. Please call back as soon as possible. Marcel Tamez 10/31/2020 16:18 * Telephone Encounter - Dana Dodson - 10/30/2020 1320 EST Patient calling again. Please schedule SHON * Telephone Encounter - Jossue Lopez - 10/30/[address] scan from [facility] has arrived. Patient would like to be scheduled as soon as possible. Please call. * Telephone Encounter - Dolores Mann - 10/29/2020 1605 EST Reason for Call: Appointment Related Summary/Symptoms: Patient stated she has a kidney stone again and in pain had [place] ct [facility] [place] [facility] a couple of weeks ago and was hoping that Dr. Veronica had sent the results over for Dr. Ortez to review Patient wants to get an appointment with Dr. Ortez as soon as possible Patient was prescribed Oxycodone 5 mg 1 in the am and 1 in the pm to help get her through Dolores Mann 10/29/2020 16:05 documented in this encounter Plan of Treatment Upcoming Encounters Date Type Department Care Team (Late st Contact Info) Description 01/04/2025 13:00 EST Office Visit [facility] Ophthalmology - [address] [phone] Gagandeep Rome MD [address] [place] [address] 5 [place] [phone] 02/11/2025 13:[address] [facility] Hematology & Oncology - [address] [phone] Dana Padilla MD [address] [place] [address], [facility] 2 [place] [phone] documented as of this encounter Visit Diagnoses Not on filedocumented in this encounter Care Teams Mold Filler Plastic Dolls Relationship Specialty Start Date End Date Emigdio Veronica MD 2 [place] [phone] PCP - General Internal Medicine - Primary Care 05/22/20 02/21/24 documented as of this encounter
--- OUTSIDE RECORDS SUMMARY | 2024-11-22 17:20 | XMS_ITS | Encounter Summary ---
Author Organization 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 SUBJECTIVE: Reviewed assessment and plan from previous visit with pt. OBJECTIVE: Comment(s): Phone contact, patient not feeling well. TOPIC OF CONVERSATION: Engaged patient in conversation related to positive behavior change, self- management, goal setting and action planning using motivational interviewing and active listening. Tara not feeing well due to poor sleep and likely kidney stones. Had CT scan yesterday, heard back from one specialist but not sleep study. Stable emotionally. Managing okay for now. Patient's Primary Care Site: Adult Primary Care [address], [place] Total Time: 20 min phone, 5 min note Referral: na Follow up: Date: 11/19/20 Time: 10 AM With: Doris Joseph Melon Packer Location: Phone Status: Active documented in this encounter Plan of Treatment Upcoming Encounters Date Type Department Care Team (Late st Contact Info) Description 01/04/2025 13:00 EST Office Visit [facility] Ophthalmology - [address] [phone] Gagandeep Rome MD [address] [place] [address], [facility] 5 [place] [phone] 02/11/2025 13:30 EDT Telemedicine [facility] Hematology & Oncology - [address] [phone] Dana Padilla MD [address] [place] [address], Level [address] [place] [phone] documented as of this encounter Visit Diagnoses Not on filedocumented in this encounter Care Teams Enterprise Engineer Relationship Specialty Start Date End Date Emigdio Veronica MD 2 [place] [address] PCP - General Internal Medicine - Primary Care 05/22/20 02/21/24 documented as of this encounter
--- OUTSIDE RECORDS SUMMARY | 2024-11-22 17:20 | XMS_ITS | Encounter Summary ---
Author Organization [facility] Address [address] [place] [address] Care Team Providers Care Application Systems Architect Name Role Phone Emigdio Veronica MD Primary Care Provider + Starr Paige MD Unavailable [phone] Dana Padilla MD Unavailable Izabella Snowden [facility] Unavailable None, Provider Primary Care Provider UnavailGabriel Dacosta Primary Care Provider Mirna Guerrero Primary Care Provider + Reason for Visit * Reason Onset Date Comments Prior Auth, Medication 11/18/2020 Encounter Details Date Type Department Care Team (Late st Contact Info) Description 11/18/2020 Telephone [facility] Cancer Center Hematology & Oncology - [facility] [address] [place] [address] Starr Paige MD [address] [place] [phone] Prior Auth, Medication Social History Tobacco Use [...] Industry 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 on file Not [...] encounter Miscellaneous Notes * Telephone Encounter - Sabina Mcclain - 11/18/2020 0901 EST Prior Authorization Approval Medication: Mulpleta 3mg Approved: through 11/18/21 Authorization Number: Benefits Information or Other Notes: Pharmacy: [facility] Prior Authorization Submission Process Medication: Mulpleta 3mg Insurance: [employer] Part D Date PA Request Received: 11/17/20 PA Submission Date: 11/18/20 [facility] Stephens: [id number] Submitted by: Sabina Phone: [phone] documented in this encounter Plan of Treatment Upcoming Encounters Date Type Department Care Team (Late st Contact Info) Description 01/04/2025 13:[address] [facility] Ophthalmology - [address] [address] Gagandeep Rome MD [address] [place] [address], [facility] [address] [place] [address] 02/11/2025 13:30 EDT Telemedicine [facility] Hematology & Oncology [address] [phone] Dana Padilla MD [address] [place] [address] 2 [place] [phone] documented as of this encounter Visit Diagnoses [...] documented as of this encounter Care Teams Application Systems Architect Relationship Specialty Start Date End Date Emigdio Veronica MD [address] [place] [address] PCP - General Internal Medicine - Primary Care 05/22/20 02/21/24 None, Provider PCP - General 02/24/24 03/18/24 Gabriel Gandara PA PCP - General 03/19/24 09/11/24 Mirna Guerrero PA [address] [place] [address] PCP - General 09/12/24 Starr Paige MD [address] [place] [phone] Hematology 10/08/21 06/09/22 Dana Padilla MD [address] [place] [address], [address] [place] [address] Hematology 01/13/22 06/09/22 Izabella Snowden, [facility] 1 [facility], 3rd [place] [phone] Technical Services Consultant 02/21/23 05/03/24 documented as of this encounter
--- OUTSIDE RECORDS SUMMARY | 2024-11-22 17:20 | XMS_ITS | Encounter Summary ---
Author Organization [facility] Address [address] [place] [address] Care Team Providers Care Director Informatics Name Role Phone Emigdio Veronica MD Primary Care Provider + Reason for Visit * Reason Comments Follow-up Encounter Details Date Type Department Care Team (Latest Contact Info) Description 11/19/2020 10:30 EST Telemedicine [facility] Cancer Center Hematology & Oncology - [place] [address] [place], [place] [phone] Starr Paige MD [address] [place] [address] Thrombocytopenia ([facility]) (Primary Dx) Social History Tobacco Use [...] 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 7 Tab 11/23/2020 11/30/2020 documented in this encounter Progress Notes * Starr Paige MD - 11/19/2020 1030 EST [facility] HEMATOLOGY AND ONCOLOGY PROGRESS / FOLLOWUP NOTE 11/19/20 10:30 DIAGNOSIS: Pancytopenia associated with liver cirrhosis and portal hypertension with hypersplenism. CURRENT THERAPY: Planned perioperative lusutrombopag oral: 3 mg once daily for 7 days. Begin lusutrombopag 8 to 14 days prior to the scheduled procedure. Patients should undergo procedure 2 to 8 days after the last lusutrombopag dose. Obtain a platelet count prior to therapy administration and not more than 2 days before the procedure. PRIOR THERAPY: none CC: follow up HISTORY OF PRESENT ILLNESS: 60 y.o. y.o. years old white female with past medical history of asthma, hyperlipidemia, GERD, history of nonalcoholic fatty liver disease, history of hepatitis C as well as known decompensated livercirrhosis with portal hypertension, severe hepatosplenomegaly as well as history of hepatic encephal opathy is being transferring care from [facility] to [facility] because of relocation. Patient is following Dr. Ijeoma Smith, GI Department in [facility] for long-standing decompensated liver cirrhosis, portal hypertension and hepatic encephalopathy. She was also formerly seen by hematology oncology clinic in [facility], underwent bone marrow biopsy for pancytopenia [...] by Dr. Dickens although then relocated to [place]. Her most recent CBC showed WBC [...] longer seeing Dr. Smith in hepatology in [facility] TIPS and liver transplant listing are on stand by. Interval history: Visit is conducted by telemedicine secondary to COVID19 pandemic and social distancing. She is hereto discuss perioperative management for kidney stone removal on 12/03/2020. ROS: 10 review of system is completed [...] syndrome ??? Rheumatoid arthritis ??? Thyroid disease PAST SURGICAL HISTORY: Past [...] Gets together: Not on file ??? Attends bahai service: Not on file ??? Active member of club or organization: Not on file ??? Attends meetings of clubs or organizations: Not on file ??? Relationship status: Not on file PHYSICAL EXAMINATION: There were no vitals taken for this visit. Visit is conducted by telemedicine, physical exam was not performed. LABS REVIEWED: Will get them done on 12-01-2020 perioperatively IMAGING REVIEWED: June 01, 2017: Findings: The [...] interpretation and agree with the findings. PATHOLOGY: [facility] on May 01, 2019 she underwent a bone marrow biopsy that showed mature trilineage hematopoiesis with no evidence of bone marrow disease. Bone marrow biopsy 04/09/2013: (Performed at [facility] ---Diagnosis--- 1. Progressive pancytopenia, chronic Hep C [...] hypersplenism. - Patient was formerly evaluated at [facility] with subsequent bone marrow biopsy that showed no evidenceof clonal population or any maturation defects, her BMBX in April 2019 again confirmed the similar findings - labs reviewed and overall stable. - Patient will be scheduled for a kidney stone removal on 12/03/2020: She will be started on Lusuthrombopaq on 11/23/2020 till 11/30/2020; repeated labs on 12-01-2020 to increase plt count > 50K for the procedure Back up plan - platelet transfusion on a day of procedure if patient did nto achieve a necessary increment with TPO mimetics. Lusutrombopag is currently approved for thrombocytopenia in adults with chronic liver disease who are scheduled to undergo a medical or dental procedure. The recommended lusutrombopag dosage is 3 mg orally once daily with or without food for 7 days. Approval was based on two randomized, double-blind, placebo-controlled trials (L-PLUS 1 and L-PLUS 2, [id number]) involving 312 patients with chronic liver disease and severe thrombocytopenia who were undergoing an invasive procedure and had a platelet count less than 50 x 109/L. Plan: Lusutrombopaq 3 mg po daily to start on 11/23/2020 LD on 11/29/2020 (prescription was sent to [facility] pharmacy) Labs on 12/01/2020 (CBCd order is in place) Procedure on 12/03/2020 RTC for TH visit in 4 weeks from now with labs. Starr Paige Hematology and Oncology I am conducting today's visit by telephone due to the COVID-19 pandemic, and by the recommendationsfr the [facility] to minimize patient exposure and provide [...] MD, am in my private office alone. I spent __23 minutes face to face time with the patient, and ___20____minutes of that time were spent in counseling the patient on newly( established) diagnosis/ medication options, side effectsand coordination of care. All their questions were answered to their satisfaction. The patient agree d with the management plan. Visit is conducted via Moneyl[employer]. Addendum: 12-02-2020: plt count 68K; discussed with Dr. Ortez - levels are safe for the procedure. Planned for pre admit tomorrow documented in this encounter Plan of Treatment Upcoming Encounters Date Type Department Care Team (Late st Contact Info) Description 01/04/2025 13:00 EST Office Visit [facility] Ophthalmology - [address] [address] Gagandeep Rome MD [address] [place] [address], [address] [place] [phone] 02/11/2025 13:30 EDT Telemedicine [facility] Hematology & Oncology - [address] [address] Dana Padilla MD [address] [place] [address], [facility], [address] [place] [address] documented as of this encounter Results * (ABNORMAL) COMPLETE BLOOD COUNT AND DIFFERENTIAL (12/29/2020 11:46 EST) WBC 3.45(L) 4.00 - 12.40 K/cmm 12/29/2020 11:56 [facility] RBC 4.14 3.86 - 5.04 M/cmm 12/29/2020 11:56 [facility] Hemoglobin 12.1 11.6 - 15.2 gm/dL 12/29/2020 11:56 [facility] HCT 36.2 34.9 - 44.4 % 12/29/2020 11:56 [facility] MCV 87 81 - 98 fl 12/29/2020 11:56 [facility] MCH 29.2 26.7 - 33.3 pg 12/29/2020 11:56 [facility] MCHC 33.4 32.1 - 35.9 gm/dL 12/29/2020 11:56 [facility] RDW-CV 15.2(H) <14.7 % 12/29/2020 11:56 [facility] RDW-SD 48.6 <50.4 fl 12/29/2020 11:56 [facility] PLT 41(L) 141 - 377 K/cmm 12/29/2020 11:56 [facility] MPV 9.5 9.5 - 12.7 fl 12/29/2020 11:56 [facility] % Neutrophils 85.2 % 12/29/2020 11:56 [facility] % Lymphocytes 7.5 % 12/29/2020 11:56 [facility] % Monocytes 6.1 % 12/29/2020 11:56 [facility] % Eosinophils 0.6 % 12/29/2020 11:56 [facility] % Basophils 0.3 % 12/29/2020 11:56 [facility] % Immature Grans 0.3 % 12/29/19 11:56 [facility] Absolute Neutrophils 2.94 2.20 - 8.85 K/cmm 12/29/2020 11:56 [facility] Absolute Lymphocytes 0.26(L) 1.09 - 3.30 K/cmm 12/29/2020 11:56 [facility] Absolute Monocytes 0.21 0.10 - 0.80 K/cmm 12/29/2020 11:56 [facility] Absolute Eosinophils 0.02(L) 0.03 - 0.61 K/cmm 12/29/2020 11:56 [facility] ABS Basophils 0.01 0.01 - 0.11 K/cmm 12/29/2020 11:56 [facility] Absolute Immature Grans 0.01 0.00 - 0.06 K/cmm 12/29/2020 11:56 [facility] Type of Differential: Auto 12/29/2020 11:56 [facility] Blood VENOUS BLOOD / Unknown Venipuncture / Unknown 12/29/2020 11:46 EST 12/29/2020 11:50 EST us Starr Paige MD PACKAGES [employer] PROBE ORDERA BLES Final Result [facility] [address] [place] [address] documented in this encounter Visit Diagnoses Diagnosis Thrombocytopenia (HCC-CMS)- Primary Thrombocytopenia, unspecified documented in this encounter Care Teams Director Informatics Relationship Specialty Start Date End Date Emigdio Veronica MD [address] [place] [phone] PCP - General Internal Medicine - Primary Care 05/22/20 02/21/24 documented as of this encounter
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
--- OUTSIDE RECORDS SUMMARY | 2024-11-22 17:20 | XMS_ITS | Encounter Summary ---
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 * Telephone Encounter - Emigdio Fernandez MD - 11/19/2020 1140 EST I sincerely appreciate the effort to preserve the pre-op and arrange an appropriate block of time for a post-hospitalization visit. But per billing rules we can't bill two separate visits back to back the same day. What I would advise is to change her first appointment (the pre-op) to [address] a 15 minute block on the end of that appointment. That should give me more then enough time to complete a full physical for the pre op and touch base with her on her recent ED presentation. It will be billedas one visit. * Telephone Encounter - Noemi Hall - 11/17/2020 1658 EST patient has Pre-op physical with you on so scheduled this appt for right after since she has a hard time getting a ride down from [facility] * Telephone Encounter - Heike Mcleod RN - 11/17/2020 1518 EST Images from the original note were not included. Emigdio Fernandez MD Given Therese Gonsales 6 minutes ago (15:11) Can offer patient 30-45 min post-hospitalization follow-up visit this week. * Telephone Encounter - Emigdio Fernandez MD - 11/17/[address] Abreu at [facility] ED. Per Dr. Abreu's work-up Phyliss does not appear to be a significant volume overloaded state. Her legs have +1 pitting edema, are warm and not discolored. She appreciated no skin breakdown. Additionally her CXR and bilateral lower extremity ultrasounds for DVT were unremarkable other thenmild edema. Her lab work demonstrated stable thrombocytopenia and no acute electrolyte abnormalities. Her systolic blood pressures were soft between the high 80-100s, but not overtly hypotensive. Tara did note to Dr. Abreu that her blood pressures at home have dipped into the 60-70s, but it is unclear on the context. Dr. Abreu expressed she was not comfortable treating Tara with IV diuretics given her soft pressures and only mild evidence of volume overload. We agreed that likely the next appropriate step would be outpatient management as it appears that the primary issue for dav is related to chronic pain in her legs. * Telephone Encounter - Noemi Hall - 11/17/[address] from [facility] would like to talk with you about this patient as soon as possible [phone] Dr Thelma Abreu * Telephone Encounter - Heike Mcleod RN - 11/17/2020 1141 EST Call from pt States she is very discouraged as [facility] ER is sending her home States they cannot do anything for her fluid as her BP is 83/? Then up to 90? (so low they said they could not give her IV diuretics) States they did not say anything about her darkened feet States she does not know what to do now States she will be needing a refill on her oxycodone She is very overwhelmed Advised I would discuss with Dr Fernandez if he was here Advised if they wanted to call us for any more information they are welcome to, but hard to advise as they are the ones assessing her currently Dr Fernandez not in office currently Call back to pt to advise pt to address her questions to care team there VM not set up; attempt x 2 Finally reached pt Advised her to advocate for herself and communicate with them as they are the ones assessing her and to ask what they can do to help with her breathing, swelling, pain discoloration, etc. She will call us back when she needs f/u The patient indicates understanding of these issues and agrees with the plan. * Telephone Encounter - Heike Mcleod RN - 11/17/2020 1030 EST Call to Patient Relayed message per dr fernandez Patient expressed understanding with no barriers appt for today cx Pt will have a ride take her to ER No additional questions or concerns to be addressed at this time. Call to ER office cashier Christine at [facility]-closest ER to pt Advised of information below She indicates understanding of these issues and agrees with the plan. * Telephone Encounter - Emigdio Fernandez MD - 11/17/2020 1003 EST I agree with the initial stage rigger, ER presentation is most appropriate now. Given her rapid weight gain despite aggressive increases in diuretics I am concerned she has entered a volume overloaded state (possible hepatorenal syndrome). Her intractable pain and discoloration of her legs is enough on it's own to receive an acute evaluation. There is little I can offer her alternatively in an office visit. We have attempted repeatedlyto treat her volume overloaded state with oral medications. In my mind she is failing outpatient management for her fluid status and likely requires IV diuretics and/or admission. * Telephone Encounter - Jes Mayorga RN - 11/17/2020 0934 EST Cancellation in office for today. Patient scheduled for 345 pm in person. Any other recommendations.? * Telephone Encounter - Jes Mayorga RN - 11/17/2020 0905 EST Swelling is so bad over the weekend. Told to watch for weight gain or swelling. Feet have turned black From Tuesday to Tuesday has gained 11 pounds. Sick to stomache. Legs hurt . So swollen that are starting to split open in spots. Some shortness of breath. Usually the oxygen will take care of the shortness of breath. Feet are cold. Legs arent as cold to the touch. weighed 170 in spring and now 220. Last week weight was fluctuating between 208 and 211. Yesterday was 221 Asked patient if she has a history of clots. Patient states she has not because her platelets are too low. Scheduled for surgery to remove kidney stone in November. Patient has meeting with customs opener verifier packer as part of preop. Patient also dealing with a kidney stone. Did double dose of flomax Patient is also on spironolactone. Encouraged patient to go to the ER because of rapid weight gain. t patient would like appointment today instead. Office visits available tomorrow. Can patient wait that long? Recommendations? * Telephone Encounter - Xuan Jimenez - 11/17/2020 0804 EST Reason for Call: Foot Swelling and Leg Swelling Summary/Symptoms: Patient reports that her swelling in both her feet and legs has gotten worse and would like to be seen by PCP today Onset and Duration: on going but getting worse Does the patient have a computer, laptop or smart phone with high speed & video capability? No If so, would they be interested in doing a video visit via Zoom? No Appointment Offered? No Xuan Jimenez 11/17/2020 8:04 documented in this encounter Plan of Treatment Upcoming Encounters Date Type Department Care Team (Late st Contact Info) Description 01/04/2025 13:00 EST Office Visit [facility] Ophthalmology - [facility] [address] [place], [place] [address] Gagandeep Rome MD [address] [facility], [address] [place] [address] 02/11/2025 13:30 EDT Telemedicine [facility] Hematology & Oncology - [address] [place] [address] [phone] Dana Padilla MD 111 [facility], [address] [place] [phone] documented as of this encounter Visit Diagnoses Not on filedocumented in this encounter Care Teams Hypo Splasher Relationship Specialty Start Date End Date Emigdio Fernandez MD [address] [place] [phone] PCP - General Internal Medicine - Primary Care 05/22/20 02/21/24 documented as of this encounter
--- OUTSIDE RECORDS SUMMARY | 2024-11-22 17:20 | XMS_ITS | Encounter Summary ---
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 Notified pt. Results scanned into pt's chart. documented in this encounter Plan of Treatment Upcoming Encounters Date Type Department Care Team (Late st Contact Info) Description 01/04/2025 13:00 EST Office Visit [facility] Ophthalmology - [address] [phone] Gagandeep [place] MD [address] [place] [address], [facility] 5 [place] [phone] 02/11/2025 13:30 EDT Telemedicine [facility] Hematology & Oncology - [address] [phone] Dana Padilla MD [address] [place] [address], [facility] 2 [place] [address] documented as of this encounter Visit Diagnoses Not on filedocumented in this encounter Care Teams Door Tender Relationship Specialty Start Date End Date Emigdio Veronica MD [address] [place] [phone] PCP - General Internal Medicine - Primary Care 05/22/20 02/21/24 documented as of this encounter
--- OUTSIDE RECORDS SUMMARY | 2024-11-22 17:20 | XMS_ITS | Encounter Summary ---
Author Organization [facility] Address [address] [place] [address] Care Team Providers Care Cell Biology Scientist Name Role Phone Emigdio Veronica MD Primary Care Provider + Reason for Visit * Reason Onset Date Comments Pre-visit Orders 11/12/2020 Sleep study [facility] ed on 11/27/20. Pre-procedure Covid Order Encounter Details Date Type Department Care Team (Late st Contact Info) Description 11/12/2020 Telephone [facility] Sleep Program - [address] [address] Anisa Flores, RN [address] [place] [address] Pre-visit Orders (Sleep study sched on 11/27/20. 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 Pt verbalized understanding, no barrier to learning. * Telephone Encounter - Katherin Grove APRN - 11/12/2020 1126 EST COVID order signed * Telephone Encounter - Anisa Flores RN - 11/12/2020 1114 EST Sleep study scheduled for 11/27/20. Pre-procedure CoVid (asymptomatic) order pended to Katherin Grove NP. documented in this encounter Plan of Treatment Upcoming Encounters Date Type Department Care Team (Late st Contact Info) Description 01/04/2025 13:00 EST Office Visit [facility] Ophthalmology - [address] [phone] Gagandeep [place] MD 111 [facility], [facility] 5 [place] [address] 02/11/2025 13:30 EDT Telemedicine [facility] [place] Hematology & Oncology - [address] [address] Dana Padilla MD [address] [place] [address], [facility] 2 [place] [phone] documented as of this encounter Visit Diagnoses Diagnosis Encounter for preoperative screening laboratory testing for COVID-19 virus- Primary documented in this encounter Care Teams Cell Biology Scientist Relationship Specialty Start Date End Date Emigdio Veronica MD 2 [place] [phone] PCP - General Internal Medicine - Primary Care 05/22/20 02/21/24 documented as of this encounter
--- OUTSIDE RECORDS SUMMARY | 2024-11-22 17:20 | XMS_ITS | Encounter Summary ---
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 Maritza Johnclemente 11/19/2020 13:52 documented in this encounter Plan of Treatment Upcoming Encounters Date Type Department Care Team (Late st Contact Info) Description 01/04/2025 13:00 EST Office Visit [facility] Ophthalmology - [address] [phone] Gagandeep [place] MD [address] [place] [address], [facility] 5 [place] [address] 02/11/2025 13:30 EDT Telemedicine [facility] Hematology & Oncology - [address] [phone] Dana Padilla MD [address] [place] [address], [facility] 2 [place] [phone] documented as of this encounter Procedures Procedure Name Priority Date/Time Associated Diagnosis Comments COMPLETE BLOOD COUNT AND DIFFERENTIAL Routine 11/13/2020 documented in this encounter Results * (ABNORMAL) COMPLETE BLOOD COUNT AND DIFFERENTIAL (11/13/2020) WBC, External 2.69(A) 4.8 - 10.8 [facility] RBC, External 4.25 [facility] Hemoglobin, External 12.5 [facility] HCT, External 38.6 [facility] MCV, External 90.8 [facility] MCH, External 29.4 [facility] MCHC, External 32.4(A) 33 - 37 [facility] PLT, External 48(A) 140 - 440 [facility] RDW-CV, External 13.8 [facility] Neutrophils, External 74.3(A) 40.0 - 72.0 [facility] Lymphocytes, External 13.8(A) 17 - 45 [facility] Monocytes, External 9.7 [facility] Eosinophils, External 1.5 [facility] Basophils, External 0.7 [facility] ABS Neutrophils, External 2.00 [facility] ABS Lymphs, External 0.37(A) 1.2 - 3.4 [facility] ABS Monocytes, External 0.26 [facility] ABS Eosinophils, External 0.04 [facility] ABS Basophils, External 0.02 [facility] Blood VENOUS BLOOD / Unknown 11/13/2020 us Historical Provider PACKAGES & DNA PROBE DEMI CARDENAS Final Result Performing Organization Address City/State/[facility] Co de Phone Number [facility] documented in this encounter Visit Diagnoses Not on filedocumented in this encounter Care Teams Shaker Tender Relationship Specialty Start Date End Date Emigdio Veronica MD [address] [place] [phone] PCP - General Internal Medicine - Primary Care 05/22/20 02/21/24 documented as of this encounter
--- OUTSIDE RECORDS SUMMARY | 2024-11-22 17:20 | XMS_ITS | Encounter Summary ---
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 Ortez. Pt will contact her PCP andhematologist to schedule pre-op clearance. A urine culture is scheduled at [facility]. A telemed appointment is scheduled with Dr. Ortez on 11/27/20 at 9:45. Pt is aware that a COVID test is required within the 5-7 days prior. She was instructed to quarantine after having the test done. documented in this encounter Plan of Treatment Upcoming Encounters Date Type Department Care Team (Late st Contact Info) Description 01/04/2025 13:00 EST Office Visit [facility] Ophthalmology - [address] [phone] Gagandeep [place] MD [address] [place] [address], [facility] 5 [place] [phone] 02/11/2025 13:30 EDT Telemedicine [email or web address] Hematology & Oncology - [address] [phone] Dnaa Padilla MD [address] [place] [address], [facility] 2 [place] [phone] documented as of this encounter Visit Diagnoses Not on filedocumented in this encounter Care Teams Pulp Drier Relationship Specialty Start Date End Date Emigdio Veronica MD 2 [place] [phone] PCP - General Internal Medicine - Primary Care 05/22/20 02/21/24 documented as of this encounter
--- OUTSIDE RECORDS SUMMARY | 2024-11-22 17:20 | XMS_ITS | Encounter Summary ---
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 90 Tab 11/06/2020 01/21/2021 documented in this encounter Progress Notes * Emigdio Veronica MD - 11/06/2020 1030 EST TELEMEDICINE PHONE VISIT The concept of [...] or mental health care. The patient confirms severe left flank and lower extremity pain. The following staff and their role [...] ??? furosemide (LASIX) 40 mg tablet ??? levothyroxine (SYNTHROID) 25 mcg [...] a 60 y.o. female with PMHx of QUIROZ liver cirrhosis and nephrolithiasis who presents with a CC: of nephrolithiasis follow-up Today Tara presents for a telephone visit to follow-up on her confirmed left kidney stone. She states that she has not passed the stone yet. It was appreciated a [facility] renal CT scan on 10/21/2020 and noted to be around 4 mm. She connected with her [facility] urologist and had her Flomax doubled to 0.8 mg daily. She is following up with urology next week. She has been prescribed oxycodone 5 mg BID PRNfor pain and she confirms that she is using the oxycodone daily. She is attempting to aggressively hydrate to pass the stone. She notes however that her legs continue to swell with her fluid intake. This is a chronic issue for Tara and related to her longstanding QUIROZ. She describes the pain in her legs as extremely painful and she reports she is alarmed at how puffy they look. She is scheduled to establish with [facility] hepatology in November. We discussed next steps, including increasing her diuretic regiment, beyond her flomax she is also on lasix 80 mg daily and spirolactone 100 mg daily. We also discussed presenting to the ED if her pain and swelling are becoming too sever to manage at home. He would like to do everything she can to avoid going back to the ED. She denies confusion, fevers, chills, lightheadedness or worsening abdominal swelling. ROS as above O: There were no vitals taken for this visit. Recent Labs/Imaging: Reviewed in Epic A and P: Diagnoses and all orders for this visit: Nephrolithiasis: 4 mm left ureter stone appreciated on outside imaging over two weeks prior. Despite aggressive hydration she reports the stone has not passed - Heavily encouraged urology follow-up next week - Encouraged compliance with flomax 0.8 mg daily - Encouraged patient to continue use of oxycodone 5 mg BID as needed Bilateral lower extremity edema: Related to QUIROZ, acutely worsened in the setting of aggressive fluid intake for current nephrolithiasis. - Continue flomax as above - Continue lasix at 80 mg daily - Will increase spirolactone from 100 mg daily to 150 mg daily. Low threshold to increase further to 200 mg daily if swelling fails to improve - Encouraged patient to monitor weight daily - Heavily encouraged compliance with the plan to follow-up with [facility] hepatology next month F/u: As scheduled I spent a total of 30 minutes over the phone with this patient today and 20 minutes of that time was spent on education and counseling for nephrolithiasis, bilateral lower extremity edema Emigdio Veronica MD 11/08/2020 10:20 documented in this encounter Plan of Treatment Upcoming Encounters Date Type Department Care Team (Late st Contact Info) Description 01/04/2025 13:00 EST Office Visit [facility] Ophthalmology - [address] [phone] Gagandeep [place] MD [address] [place] [address], [facility] 5 [place] [phone] 02/11/2025 13:30 EDT Telemedicine [facility] Hematology & Oncology - [address] [phone] Dana Padilla MD 111 [facility], [facility] 2 [place] [address] documented as of this encounter Visit Diagnoses Diagnosis Nephrolithiasis- Primary Calculus of kidney Bilateral lower extremity edema Edema documented in this encounter Care Teams Cardiac Nurse Relationship Specialty Start Date End Date Emigdio Veronica MD [address] [place] [phone] PCP - General Internal Medicine - Primary Care 05/22/20 02/21/24 documented as of this encounter
--- OUTSIDE RECORDS SUMMARY | 2024-11-22 17:20 | XMS_ITS | Encounter Summary ---
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 Answer Date of Assessment Author No 04/26/2020 7:00 Chao Young, RN * Are you blind or do [...] Visit [facility] Ophthalmology - [address] [phone] Gagandeep [place] MD [address] [place] [address], [facility] 5 [place] [address] 02/11/2025 13:30 EDT Telemedicine [facility] Hematology & Oncology - [address] [phone] Dana Padilla MD [address] [place] [address], [facility] 2 [place] [phone] documented as of this encounter Visit Diagnoses Diagnosis Pre-op testing- Primary Preoperative examination, unspecified documented in this encounter Care Teams Test Hole Driller Relationship Specialty Start Date End Date Emigdio Veronica MD [address] [place] [phone] PCP - General Internal Medicine - Primary Care 05/22/20 02/21/24 documented as of this encounter
--- OUTSIDE RECORDS SUMMARY | 2024-11-22 17:20 | XMS_ITS | Encounter Summary ---
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 Daily Max: 10 mg 28 Tab 10/29/2020 11/10/2020 documented in this encounter Miscellaneous Notes * Telephone Encounter - Karol Hoff RN - 10/29/2020 1344 EST Updated patient about the recommendations from Dr Veronica below. The patient indicates understanding of these issues and agrees with the plan. No barriers. Patient also aware [facility] CT results scanned into our system and she should call urology. * Telephone Encounter - Emigdio Veronica MD - 10/29/2020 1226 EST Agree that in this case a longer course of oxycodone is warranted. The medication is still intendedto be a temporary, however. Will provide a 28 tablet script for oxycodone * Telephone Encounter - Karol Hoff RN - 10/29/2020 1101 EST Updated patient about the recommendations from Dr Veronica below. The patient indicates understanding of these issues and agrees with the plan. No barriers. Patient reports no change in pain or thinking that she has passed the stone. Patient is already a patient of urology. Advised her the result from [facility] will be scanned and then she will be advised to reach out to them directly. Patient is requesting oxycodone until she can be seen/treated by urologyplease see pended. * Telephone Encounter - Emigdio Veronica MD - 10/29/[address] abdominal scan from [facility] demonstrates a 4 mm non-obstructing stone in her left ureter. At this size the stone should be passable, but it could also be embedded in the ureter. Can we please reach out to Phyliss to inquire how she is doing and if the stone has passed? If not I would be inclined to try and get her in with urology sooner rather then later. documented in this encounter Plan of Treatment Upcoming Encounters Date Type Department Care Team (Late st Contact Info) Description 01/04/2025 13:00 EST Office Visit [facility] Ophthalmology - [address] [phone] Gagandeep [place] MD [address] [place] [address] 5 [place] [phone] 02/11/2025 13:30 EDT Telemedicine [facility] Hematology & Oncology - [address] [phone] Dana Padilla MD [address] [place] [address] 2 [place] [phone] documented as of this encounter Visit Diagnoses Not on filedocumented in this encounter Discontinued Medications Medication Sig Discontinue Reason Start Date End Da te oxyCODONE (ROXICODONE) 5 mg immediate release tablet Take 1 Tab by mouth 2 times daily as needed for Pain. Daily Max: 10 mg Reorder 10/21/2020 10/29/2020 documented as of this encounter Care Teams Rn On Site Relationship Specialty Start Date End Date Emigdio Veronica MD [address] [place] [phone] PCP - General Internal Medicine - Primary Care 05/22/20 02/21/24 documented as of this encounter
--- OUTSIDE RECORDS SUMMARY | 2024-11-22 17:21 | XMS_ITS | Encounter Summary ---
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 No / Unsure 08/22/2020 15:46 EDT documented as of this encounter Functional Status * Are you deaf or do you have serious difficulty hearing? Answer Date of Assessment Author No 04/26/2020 7:00 EDT Chao Saravia RN * Are you blind or do you have serious difficulty seeing, even when wearing glasses? Answer Date of Assessment Author No 04/26/2020 7:00 EDT Chao Saravia RN * Do you have serious difficulty walking or climbing stairs? (5 years old or older) Answer Date of Assessment Author No 04/26/2020 7:00 EDT Chao Saravia RN * Do you have [...] [facility] Ophthalmology - [address] [phone] Gagandeep [place] MD 111 [facility], [facility] 5 [place] [phone] 02/11/2025 13:30 EDT Telemedicine [facility] Hematology & Oncology - [address] [phone] Dana Padilla MD 111 [facility], Level [address] [place] [phone] documented as of this encounter Visit Diagnoses Not on filedocumented in this encounter Care Teams Interface Control Officer Relationship Specialty Start Date End Date Emigdio Veronica MD 2 [place] [phone] PCP - General Internal Medicine - Primary Care 05/22/20 02/21/24 documented as of this encounter
--- OUTSIDE RECORDS SUMMARY | 2024-11-22 17:21 | XMS_ITS | Encounter Summary ---
Author Organization [facility] Address [address] [place] [address] Care Team Providers Care In Home Baby Sitter Name Role Phone Emigdio Veronica MD Primary Care Provider + Reason for Visit * Reason Onset Date Comments Joint Swelling 08/19/2020 Chest Pain 08/19/2020 Encounter Details Date Type Department Care Team (Late st Contact Info) Description 08/19/2020 Telephone [facility] Adult Primary Care - [place] [address] [place] [address] Emigdio Veronica MD [address] [place] [phone] Joint Swelling; Chest Pain Social History Tobacco Use Types Packs/Day [...] Job Start Date Job End Date [employer] trades [employer] Not on file Not on file Not o n file COVID-19 Exposure Response Date Recorded In the last month, have you been in contact with someone who was confirmed or suspected to have Coronavirus / COVID-19? No / Unsure 08/19/2020 10:07 EDT documented as of this encounter Functional Status * Are you deaf or do you have serious difficulty hearing? Answer Date of Assessment Author No 04/26/2020 7:00 EDT Chao Saravia, RN * Are you blind or do you have serious difficulty seeing, even when wearing glasses? Answer Date of Assessment Author No 04/26/2020 7:00 EDT Chao Saravia, RN * Do you have serious difficulty walking or climbing stairs? (5 years old or older) Answer Date of Assessment Author No 04/26/2020 7:00 EDT Chao Saravia, RN * Do you have difficulty dressing or bathing? (5 years old or older) Answer Date of Assessment Author No 04/26/2020 7:00 EDT Chao Saravia, RN * Because of a [...] * Telephone Encounter - Ebony Toscano - 08/19/2020 1503 EDT I called the pt, I gave her your message regarding returning to the ER if her Sx worsen/return. Pt scheduled Tuesday afternoon to allow for 45 minutes (she could not do afternoon). * Telephone Encounter - Emigdio Veronica MD - 08/19/2020 1231 EDT aware, will discuss with patient on 08/21/2020 If her symptoms worsen/return prior to our appointment she should return to the ED. Given the severity of her symptoms and ED presentation I would favor the patient's appointment length being adjusted for 45 minutes. * Telephone Encounter - Xuan Jimenez - 08/19/2020 1149 EDT Patient called and said she went to the ED had a EKG which they said was okay. She waited in an isolation room for a few hours however, she had an emergency with her Grandson and had to leave. Still needs to know what to do about the swelling in her legs. Requested an appt for 08/21/2020. Scheduled for 08/21/2020 * Telephone Encounter - Emigdio Veronica MD - 08/19/2020 0929 EDT MD aware and agree with ED evaluation * Telephone Encounter - Heike Mcleod RN - 08/19/2020 0823 EDT Ankles and feet swelling getting better Yesterday they blew up like a balloon Dark, blue black colors Is taking her diuretics Is having chest pain-states liver is extremely swollen and large; not sure if pain is in liver or chest. Feels like someone punching her in that area. Everything more or less started yesterday with chest and Breathing;does have a little pain down left arm; it is an achy feeling. swelling started a few days ago Does have dizziness and weakness. Dizzy for past 3 days. Hx of BP running low Is really short of breath 02 is on 2L Usually on 2L just at night. Does not usually use it during day. This is first time she has. Started using it yesterday. Pain in chest/ abdomen is 7-8/10 Located in middle of chest where sternum is, up a little from there. Constant discomfort from yesterday Constipation is improved Lasix taking 40 mg daily Taking spironolactone 100 mg daily Discussed with patient that based on her sx ER is really recommended She will have family member drive her this morning The patient indicates understanding of these issues and agrees with the plan. Call to ER cargo service supervisor Justin and advised of pt coming their way. * Telephone Encounter - Noemi Hall - 08/19/2020 0816 EDT Reason for Call: Joint Swelling and Chest Pain Summary/Symptoms: patient tates she is having issues with swollen ankles and feet. Has be seeing Dr Veronica and he has been treating her and told her to call back if things got worse Also says she is having chest pain and having a hard time to breath and the oxygen isn't helping Onset and Duration: worse in last couple of days Does the patient have a computer, laptop or smart phone with high speed & video capability? No If so, would they be interested in doing a video visit via Zoom? No Appointment Offered? No Noemi Hall 08/19/2020 8:17 documented in this encounter Plan of Treatment Upcoming Encounters Date Type Department Care Team (Late st Contact Info) Description 01/04/2025 13:00 EST Office Visit [facility] Ophthalmology - [address] [id number] Gagandeep Rome MD [address] [place] [address] [address] [place] [phone] 02/11/2025 13:30 EDT Telemedicine [facility] Hematology & Oncology [address] [id number] Dana Padilla MD [address] [place] [address], [facility] [address] [place] [phone] documented as of this encounter Visit Diagnoses Not on filedocumented in this encounter Care Teams In Home Baby Sitter Relationship Specialty Start Date End Date Emigdio Veronica MD [address] [place] [phone] PCP - General Internal Medicine - Primary Care 05/22/20 02/21/24 documented as of this encounter
--- OUTSIDE RECORDS SUMMARY | 2024-11-22 17:21 | XMS_ITS | Encounter Summary ---
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 extrathoracic findings: No significant abnormalities. Cardiac and mediastinal contours: Normal. Lungs: Clear. Pleura: No visible pleural abnormalities. Procedure Note Sydnee Nelson MD - 08/25/2020 XR CHEST PORTABLE 1 VIEW 08/25/2020 12:40 PM CLINICAL HISTORY/COMMENTS: shortness of breath COMPARISON: None. FINDINGS: Single portable AP view of the chest. Lines/tubes: None Soft tissues, bones and extrathoracic findings: No significantabnormalities. Cardiac and mediastinal contours: Normal. Lungs: Clear. Pleura: No visible pleural abnormalities. IMPRESSION 1. Normal AP chest x-ray Pam [facility] ORDERABLES Final Result documented in this encounter Visit Diagnoses Diagnosis Shortness of breath- Primary documented in this encounter Administered Medications Inactive Administered Medications - up to 3 most recent administrations Medication Order MAR Action Action Date Dose Rate Site ipratropium-albuteroL (DUONEB) 0.5 mg-3 mg(2.5 mg base)/3 mL nebulizer solution 3 mL 3 mL, nebulization, NOW X1, 1 dose, On Tue08/25/20 at 1245, STAT Given 08/25/2020 13:32 EDT 3 mL documented in this encounter Active and Recently Administered Medications Times are shown in EDT. Scheduled Medication Order 08/23/2020 08/24/2020 08/25/2020 ipratropium-albuteroL (DUONEB) 0.5 mg-3 mg(2.5 mg base)/3 mL nebulizer solution 3 mL (COMPLETED) 3 mL, nebulization, NOW X1, 1 dose, On Tue08/25/20 at 1245, STAT 1332 (Given - Provid er: Santhosh Melo RT) documented in this encounter Orders Medications Ordered That Luc ht Not Have Been Administered Count Last Ordered Date First Ordered Date ipratropium-albuteroL (DUONE B) 0.5 mg-3 mg(2.5 mg base)/3 mL nebulizer solution 3 mL 1 08/25/2020 documented in this encounter Additional Health Concerns Infection Onset Date Last Indicated Resolved Time R/O COVID-19 08/25/2020 08/25/2020 08/30/2020 22:1 5 EDT documented as of this encounter Care Teams Rn Home Health Relationship Specialty Start Date End Date Emigdio Veronica MD [address] [place] [address] PCP - General Internal Medicine - Primary Care 05/22/20 02/21/24 documented as of this encounter
--- OUTSIDE RECORDS SUMMARY | 2024-11-22 17:21 | XMS_ITS | Encounter Summary ---
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 No / Unsure 08/25/2020 11:50 EDT documented as of this encounter Functional [...] encounter Progress Notes * Doris Joseph - 09/22/2020 6533 EST Community Health Team Social Work Initial Encounter Date of visit: 09/22/2020 Social Work initial encounter with Tara Yun for supportive counseling, anxiety, original referral from Dr. Veronica ASSESSMENT Housing: stable, lives with boyfriend in his house Transportation: no car, needs to borrow boyfriends or gets a ride with her daughter Employment/Financial: unable to work due to health Health Insurance: medicare Family Support: boyfriend of limited support, adult children supportive, has friends Community/Agency Support: na Other: na CHT intake: Not completed. computers not available during call No question data found. BEHAVIORAL HEALTH SCREENING: Comment(s): Phone contact, tearful. TOPIC OF CONVERSATION: Engaged patient in conversation related to positive behavior change, self- management, goal setting and action planning using motivational interviewing and active listening. CHT SW outreach to Chandni 09/22/20 at 9 am for supportive counseling. Gena lives with fianc??e in [facility] [place] in a newly purchased home. She has not worked for the past 6 months at [employer], but her job is available to her if/when her health improves. She is managing multiple medical conditions causing swelling, water retention, poor quality of sleep, low white blood and platelet counts and high anxiety (not breathing, especially at night). She is on O2 at night and had a sleep study scheduled to indicate if she would benefit from a CPAP. Sleep study needs to be rescheduled due to IT outage at [facility]. Reports moodgenerally stable, but with anxiety, poor sleep and weather change her mood is lower. 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 Never tried EMDR but will look into it. Hobbies include gardening, cooking/baking, puzzles, crossword, cleaning and shopping. Has her dog Fernanda as enjoyable maritime guard, as well as fianc??e, step daughter (Grand Lozada), son (Edward), daughter (Galina), and other daughter (JESSIKA). She drives but Hi takes the car to work limiting her outings, however, adult children are able to take her appointments if she does not have a car. Financially she is stable, but on a limited income with SSDI, has Medicare/Medicaid for coverage and qualifies for small amount of economic assistance re: [employer]. Has not had a panic attack in over a week, will pay attention over the next two weeks if she has another one to look for triggers and effective coping. Patient's Primary Care Site: Adult Primary Care [address], [address], [place] Total Time: 50 min phone, 10 min note Referral: na Follow up: Date: 10/06/20 at 9 am With: Doris Joseph Information Security Consultant Location: Phone Status: Active documented in this encounter Plan of Treatment Upcoming Encounters Date Type Department Care Team (Late st Contact Info) Description 01/04/2025 13:00 EST Office Visit [facility] Ophthalmology - [address] [phone] Gagandeep Rome MD [address] [place] [address] [address] [place] [phone] 02/11/2025 13:30 EDT Telemedicine [facility] Hematology & Oncology - [address] [address] Dana Padilla MD [address] [place] [address], [facility] [address] [place] [phone] documented as of this encounter Visit Diagnoses Not on filedocumented in this encounter Care Teams Sanitation Director Relationship Specialty Start Date End Date Emigdio Veronica MD [address] [place] [phone] PCP - General Internal Medicine - Primary Care 05/22/20 02/21/24 documented as of this encounter
--- OUTSIDE RECORDS SUMMARY | 2024-11-22 17:21 | XMS_ITS | Encounter Summary ---
Author Organization [facility] Address [address] [place] [address] Care Team Providers Care Center Aisle Cashier Name Role Phone Emigdio Veronica MD Primary Care Provider + Reason for Visit * Reason Onset Date Comments Pre-visit Orders 09/10/2020 Sleep study [facility] ed on 09/20/20. Pre-procedure Covid order Encounter Details Date Type Department Care Team (Late st Contact Info) Description 09/10/2020 Telephone [facility] Sleep Program - [address] [address] Anisa Flores, RN [address] [place] [address] Pre-visit Orders (Sleep study sched on 09/20/20. 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 (5 years old or older) Answer Entry Date Author No 04/26/2020 7:00 EDT Chao Saravia RN documented in this encounter Miscellaneous Notes * Telephone Encounter - Anisa Flores RN - 09/15/2020 0927 EDT Spoke with pt and let know Covid test is negative, should come to scheduled sleep study, and continue to self-quarantine as previously instructed (by PSS at scheduling). Pt verbalized understanding, no barrier to learning. * Telephone Encounter - Katherin Grove APRN - 09/10/2020 0828 EDT COVID order signed * Telephone Encounter - Anisa Flores RN - 09/10/2020 0742 EDT Sleep study scheduled for 09/20/20. Pre-procedure CoVid (asymptomatic) order pended to Katherin Grove NP. documented in this encounter Plan of Treatment Upcoming Encounters Date Type Department Care Team (Late st Contact Info) Description 01/04/2025 13:00 EST Office Visit [facility] Ophthalmology - [address] [phone] Gagandeep Rome MD [address] [place] [address], [facility] [address] [place] [phone] 02/11/2025 13:30 EDT Telemedicine [facility] [[email or web address]] Hematology & Oncology [address] [phone] Dana Padilla MD [address] [place] [address], [address] [place] [phone] documented as of this encounter Visit Diagnoses Diagnosis Encounter for preoperative screening laboratory testing for COVID-19 virus- Primary documented in this encounter Care Teams Center Aisle Cashier Relationship Specialty Start Date End Date Emigdio Veronica MD [address] [place] [phone] PCP - General Internal Medicine - Primary Care 05/22/20 02/21/24 documented as of this encounter
--- OUTSIDE RECORDS SUMMARY | 2024-11-22 17:21 | XMS_ITS | Encounter Summary ---
Author Organization [facility] Address [address] [place] [address] Care Team Providers Care Chassis Inspector Name Role Phone Emigdoi Fernandez MD Primary Care Provider + Reason for Referral * Laboratory Services (Routine) - New Request Specialty Diagnoses / Procedures Referred By [facility] Referred To Contact Diagnoses Leg cramping Procedures BASIC METABOLIC PANEL (BMP) Emigdio Fernandez MD Phone: tel: fax: Referral ID Status Reason Start Date Expiration Date V isits Requested Visits Authorized [id number] New Request 08/27/2020 1 1 Reason for Visit * Reason Onset Date Comments Patient Information Update 08/25/2020 Encounter Details Date Type Department Care Team (Late st Contact Info) Description 08/25/2020 Telephone [facility] Adult Primary Care - [place] [address] [place] [address] Emigdio Fernandez MD [address] [place] [phone] Patient Information Update Social History Tobacco Use Types Packs/Day [...] 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 Was told that their Internet is down today, but should be up by tomorrow. * Telephone Encounter - Karol Armstrong RN - 08/27/2020 1201 EDT Updated patient about the recommendations from Dr Fernandez below. The patient indicates understanding of these issues and agrees with the plan. No barriers. * Addendum Note - Emigdio Fernandez MD - 08/27/2020 1113 EDTAddended by: EMIGDIO FERNANDEZ III on: 08/27/2020 11:13 Modules accepted: Orders * Telephone Encounter - Emigdio Fernandez MD - 08/27/2020 1109 EDT I would favor her staying on lasix 80 mg until Tuesday. I think checking her electrolytes is a good idea. I would advise getting a repeat BMP prior to our visit. If she wants to get it done at [facility] that's fine. I written for an external BMP. Please fax if that is indeed what the patient is planning to do. * Telephone Encounter - Karol Armstrong RN - 08/27/2020 1002 EDT every joint in body aches, breathing no too bad. Swelling at baseline. Weight 202 lb this morning. Was No appetite. Hospital Discharge Follow Up: Reason for admission: SOB Symptoms improving? yes Discharge instructions available? yes Medications Reviewed/prescriptions filled? no - N/A Support at home? Yes fiance Home health service/issues? no - N/A Questions about discharge instructions? yes Follow-up visit scheduled? yes Education/Plan: Patient has been taking increased furosemide of 80 mg daily since last Tuesday. She reports weight down to 202 lbs this morning from 205 lbs Tuesday was 197 lbs in July. She denies SOB this morning, but reports she is having the leg cramping like she did when she had hypokalemia. Potassium 4.5 on Tuesday. Should patient continue furosemide 80 mg until appointment on Tuesday? She can get blood work at [facility] this afternoon if ordered. KAROL ARMSTRONG RN 08/27/2020 * Telephone Encounter - Cris Copeland - 08/27/2020 0952 EDT Pt states that she went to the ED and they didn't do anything for me. Would like to speak with nurse again regarding her medication. * Telephone Encounter - Jes Mayorga RN - 08/25/2020 1024 EDT Patient states she is going to [facility] ER. Report called to ER Triage. * Telephone Encounter - Heike Mcleod RN - 08/25/2020 0900 EDT Call to pt States lasix was doubled by dr fernandez Tuesday to 80 mg daily Also taking 100 mg spironolactone daily Still sob States Xrays Tuesday showed a little fluid in lungs Needs 02 this AM; taking 2.5L She is using all her inhalers. Wheezing a lot; productive cough w/ wheezing. Only productive when coughing hard Nausea terrible-taking zofran Nose running No fevers, no stomach issues Will go to ER but is living up in [facility] now Will call back once sh speaks her her fiance about which ER to go to-[facility] or [facility] * Telephone Encounter - Emigdio Fernandez MD - 08/25/2020 0848 EDT She should present to the ED. She is likely in acute volume overload that has failed to respond to increases in oral diuretics. She likely needs IV diuresis and possible admission. * Telephone Encounter - Noemi Hall - 08/25/2020 0811 EDT patient states she is to call you with the weekend information Dr Fernandez increased lasix over the weekend Tuesday 206.8 Tuesday 207.7 tuesday 208.2 ankles and legs are swelling up and short of breath documented in this encounter Plan of Treatment Upcoming Encounters Date Type Department Care Team (Late st Contact Info) Description 01/04/2025 13:00 EST Office Visit [facility] Ophthalmology - [address] [phone] Gagandeep Rome MD [address] [place] [address], [address] [place] [phone] 02/11/2025 13:30 EDT Telemedicine [facility] Hematology & Oncology - [address] [address] Dana Padilla MD [address] [facility], [facility], [address] [place] [phone] documented as of this encounter Results * BASIC METABOLIC PANEL (BMP) (08/28/2020) GFR, Calculated, External 52 [facility] Glucose, Serum, External 112 [facility] Calculated Calcium, External [facility] BUN, External 19 [facility] Calcium, External 9.0 [facility] Chloride, External 100 [facility] CO2, External 31 [facility] Creatinine, External 1.07 [facility] Fasting?, External unkn [facility] Potassium, External 4.2 [facility] Sodium, External 137 [facility] Blood VENOUS BLOOD / Unknown 08/28/2020 us Emigdio Fernandez MD CHEMISTRY & BLOOD GAS OR DERABLES Final Result [facility] documented in this encounter Visit Diagnoses Diagnosis Leg cramping- Primary Cramp of limb documented in this encounter Additional Health Concerns Infection Onset Date Last Indicated Resolved Time R/O COVID-19 08/25/2020 08/25/2020 08/30/2020 22:1 5 EDT documented as of this encounter Care Teams Chassis Inspector Relationship Specialty Start Date End Date Emigdio Fernandez MD [address] [place] [phone] PCP - General Internal Medicine - Primary Care 05/22/20 02/21/24 documented as of this encounter
--- OUTSIDE RECORDS SUMMARY | 2024-11-22 17:21 | XMS_ITS | Encounter Summary ---
Author Organization [facility] Address [address] [place] [address] Care Team Providers Care Inspector Watch Train Name Role Phone Emigdio Veronica MD Primary Care Provider + Reason for Visit * Reason Comments Post-ED Follow Up * Laboratory Services (Routine) - New Request Specialty Diagnoses / Procedures Referred By Contac t Referred To Contact Diagnoses Leg cramping Procedures BASIC METABOLIC PANEL (BMP) Emigdio Veronica MD Phone: tel: fax: Referral ID Status Reason Start Date Expiration Date V isits Requested Visits Authorized [id number] New Request 08/27/2020 1 1 Encounter Details Date Type Department Care Team (Late st Contact Info) Description 09/05/2020 14:30 EDT Office Visit [facility] Adult Primary Care - [place] [address] [place] [address] Emigdio Veronica MD [address] [place] [address] Anxiety (Primary Dx); Leg cramping; Sleep disturbance; 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 (HCC-CMS); HUEY (obstructive sleep apnea) Social History Tobacco [...] 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 No / Unsure 08/25/2020 11:50 EDT documented as of this encounter Last Filed Vital Signs Vital Sign Reading Time Taken Comments Blood Pressure 94/56 09/05/2020 1438 EDT Pulse 80 09/05/2020 1438 EDT r Temperature 36.4 ??C (97.5 ??F) 09/05/2020 1438 EDT Respiratory Rate 16 09/05/2020 1438 EDT Oxygen Saturation - - Inhaled Oxygen Concentration - - Weight 91.6 kg (202 lb) 09/05/2020 1438 EDT Height - - Body Mass Index 34.67 08/19/2020 1006 EDT documented in this encounter [...] Answer Entry Date Author No 04/26/2020 7:00 DAVIDT Chao Saravia RN documented in this encounter Patient Instructions * Patient Instructions* Ashley Weems - 09/05/2020 14:30 EDT Quitting smoking Stopping smoking is [...] with a trained counselor. Tobacco Counseling in [facility] offers free counseling services to residents who are ready to cut back or quit using tobacco. Services include: phone coaching (NOW), online tools and support for those who would like to make changes on their own ([email or web address]), as well as in-person group workshops. Free nicotine replacement therapy is available through all of these resources. To learn more about your options visit www.Gastrofy.org or call 7-505-JJJE-NOW ( ). To speak with an in-person tobacco counselor in [facility] call, [phone]. [place] Resident, please visit: [email or web address] I hope you quit smoking. I think it's the best thing you can do for your health. Please call our office if you have any questions. documented in this encounter Ordered Prescriptions Prescription Sig Dispense Quantity Refills Last Filled Start Date End Date magnesium oxide (MAG-OX) 400 mg (241.3 mg magnesium) tablet Take 1 Tab by mouth daily. 200 Tab 1 09/05/2020 12/15/2020 documented in this encounter Progress Notes * Emigdio Veronica MD - 09/05/2020 1430 EDT Tara Yun is a 60 y.o. female with a PMHx of asthma, COPD, cirrhosis of the liver related to QUIROZ, HUEY PRIMARY CARE PROVIDER: Emigdio Veronica CHIEF COMPLAINT: Chief Complaint Patient presents with ??? Post-ED Follow Up SUBJECTIVE: Tara Yun presents today for a follow-up visit on her recent hospitalizations. She was seen in [facility] ED on 08/25 for burning pain in her legs and worsened SOB shortly after seeingthis provider and having her diuretic regiment increased to address weight gain. Her CXR demonstrated improvement in her pulmonary edema and she was discharged to home. She subsequently presented to [facility] on 09/03 for chest pain and received a CTA chest without evidence of acute abnormalities. Her lab work was unremarkable and a upper right quadrant ultrasound demonstrated enlarged liver with evidence of cirrhosis, but no ascites. She was discharged to home with instructions to follow-up with her PCP. Today she notes improvement in her chest pain and SOB. Her weight has decreased by 3 pound since increasing her lasix to 80 mg daily with spirolactone 100 mg daily. She continues to report chronic pain however and severe malaise. She confirms she is getting minimal sleep due to both insomnia and severe HUEY. She is still sleeping in a recliner due to inability to sleep on her back. She has an upcoming appointment with sleep medicine this October. We discussed her recent magnesium levels of 1.8 and her ongoing discomfort and malaise which may related to her disrupted sleep and habit of sleeping in a recliner. She confirms the presence of worsening anxiety around her health. She is open to a referral to a therapist to better address her difficulties with anxiety and sleep until she can be seen by sleep medicine. ROS as above Medications and history reviewed. [...] mL (0.083 %) nebulizer solution OBJECTIVE: BP 94/56 (BP Cuff Location: Left arm, BP Patient Position: Sitting, BP Cuff Sizes: Adult, regular) Pulse 80 Comment: r Temp 36.4 ??C (97.5 ??F) (Temporal) Resp 16 Wt 91.6 kg (202 lb) BMI 34.67 kg/m?? Gen: Anxious appearing middle aged female, NAD HEENT: EOMI, PERRL, oropharynx moist, conjunctiva pink, no scleral injection/ icterus CV: RRR, no murmurs, rubs or gallops Pulm: CTAB, good air movement, no wheezes, rales, or rhonchi Abd: +BS, soft, NT, mildly distended with hepatomegaly Extrem: trace bilateral lower extremity edema, warm and well perfused Skin: No rashes or erythema, intact Recent Labs/Imaging: Reviewed in Epic ASSESSMENT and PLAN: Tara was seen today for post-ed follow up. Diagnoses and all orders for this visit: Anxiety: Worsening - AMB CONS/FOLLOW UP COMMUNITY HEALTH TEAM; Future for assistance in locating a community therapistthat specializes in anxiety management Leg cramping: Unclear etiology, but recent labs notable for borderline low magenesium - Will have patient start low dose magnesium oxide at 400 mg daily for supplementation - Will repeat BASIC METABOLIC PANEL (BMP) Sleep disturbance, HUEY (obstructive sleep apnea): Complex and multifactorial - Encouraged compliance with sleep medicine follow-up as scheduled - Therapy as above 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 (HCC-CMS): With edema and volume overload history - For now will continue diuretic regiment of lasix 80 mg daily with spirolactone 100 mg daily - Continue to track weights - Follow-up in one month Health Care Maintenance Health Maintenance Topic Date Due ??? ASTHMA ACTION PLAN 1960 ??? LUNG FUNCTION TEST (SPIROMETRY) 1960 ??? COPD ACTION PLAN 1960 ??? LIPID PROFILE SCREENING (CHOLESTEROL) 1963 ??? ADVANCE DIRECTIVE 1978 ??? PREVENTIVE CARE VISIT 1978 ??? CERVICAL CANCER SCREENING 1981 ??? BREAST CANCER SCREENING 2010 ??? Colorectal Cancer Screening 2010 ??? SHINGLES IMMUNIZATION (2 of 2) 10/29/2019 ??? INFLUENZA IMMUNIZATION (ADULT) (1) 08/21/2020 ??? Social Determinants of Health (SDOH) 05/22/2021 ??? BEHAVIORAL HEALTH SCREEN 08/25/2021 ??? TETANUS (ADULT) IMMUNIZATION 03/17/2029 ??? HIV SCREENING Completed ??? HEPATITIS C SCREEN Completed ??? PNEUMOCOCCAL IMMUNIZATION Completed ??? PERTUSSIS (ADULT) IMMUNIZATION Discontinued F/u: Return in about 1 month (around 10/06/2020). Emigdio Veronica MD 09/07/2020 17:53 documented in this encounter Plan of Treatment Upcoming Encounters Date Type Department Care Team (Late st Contact Info) Description 01/04/2025 13:00 EST Office Visit [facility] Ophthalmology - [address] [phone] Gagandeep Rome MD [address] [place] [address], [facility] [address] [place] [phone] 02/11/2025 13:30 EDT Telemedicine [facility] [place] Hematology & Oncology - [address] [phone] Dana Padilla MD [address] [place] [address], [facility] [address] [place] [address] documented as of this encounter Procedures Procedure Name Priority Date/Time Associated Diagnosis Comments BASIC METABOLIC PANEL (BMP) Routine 08/28/2020 Leg cramping documented in this encounter Results * BASIC METABOLIC PANEL (BMP) (08/28/2020) GFR, Calculated, External 52 [facility] Glucose, Serum, External 112 [facility] Calculated Calcium, External [facility] BUN, External 19 [facility] Calcium, External 9.0 [facility] Chloride, External 100 [facility] CO2, External 31 [facility] Creatinine, External 1.07 [facility] Fasting?, External unkn [facility] Potassium, External 4.2 [facility] Sodium, External 137 [facility] Blood VENOUS BLOOD / Unknown 08/28/2020 us Emigdio Veronica MD CHEMISTRY & BLOOD GAS OR DERABLES Final Result [facility] documented in this encounter Visit Diagnoses Diagnosis Anxiety- Primary Anxiety state, unspecified Leg cramping Cramp of limb Sleep disturbance Sleep disturbance, unspecified 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 (HCC-CMS) Other chronic nonalcoholic liver disease HUEY (obstructive sleep apnea) Obstructive sleep apnea (adult) (pediatric) documented in this encounter Care Teams Inspector Watch Train Relationship Specialty Start Date End Date Emigdio Veronica MD [address] [place] [phone] PCP - General Internal Medicine - Primary Care 05/22/20 02/21/24 documented as of this encounter
--- OUTSIDE RECORDS SUMMARY | 2024-11-22 17:21 | XMS_ITS | Encounter Summary ---
Author Organization 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, [facility] [address] [place] [phone] 02/11/2025 13:30 EDT Telemedicine [facility] Hematology & Oncology - [address] [phone] Dana Padilla MD 111 [facility], [facility] [place] [facility] [address] [place] [phone] documented as of this encounter Visit Diagnoses Not on filedocumented in this encounter Additional Health Concerns Infection Onset Date Last Indicated Resolved Time R/O COVID-19 08/25/2020 08/25/2020 08/30/2020 22:1 5 EDT documented as of this encounter Care Teams Assembler And Tester Electronics Relationship Specialty Start Date End Date Emigdio Veronica MD [address] [place] [phone] PCP - General Internal Medicine - Primary Care 05/22/20 02/21/24 documented as of this encounter
--- OUTSIDE RECORDS SUMMARY | 2024-11-22 17:21 | XMS_ITS | Encounter Summary ---
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 The patient indicates understanding of these issues and agrees with the plan. No barriers. * Telephone Encounter - Emigdio Veronica MD - 08/22/2020 1624 EDT Patient's CXR demonstrates only mild pulmonary edema. At this point and time due to her recent weight gain and SOB I would recommend increasing her lasixfrom 40 mg daily to 80 mg today and through this weekend. She should continue to take spirolactone 100 mg daily. She should track her weights and if her SOB worsens or her weights continue to go up despite the increase in diuretics she should contact the weekend clinic or present straight to the ED. Assuming her weights come down and her breathing improves with the increase in lasix she should reach out to the clinic on Tuesday for further recommendations on her diuretic regiment documented in this encounter Plan of Treatment Upcoming Encounters Date Type Department Care Team (Late st Contact Info) Description 01/04/2025 13:00 EST Office Visit [facility] Ophthalmology - [address] [phone] Gagandeep Rome MD [address] [place] [address], [facility] 5 [place] [address] 02/11/2025 13:30 EDT Telemedicine [facility] Hematology & Oncology [address] [phone] Dana Padilla MD [address] [place] [address], [facility] [address] [place] [phone] documented as of this encounter Visit Diagnoses Not on filedocumented in this encounter Care Teams Assembly Loader Relationship Specialty Start Date End Date Emigdio Veronica MD [address] [place] [phone] PCP - General Internal Medicine - Primary Care 05/22/20 02/21/24 documented as of this encounter
--- OUTSIDE RECORDS SUMMARY | 2024-11-22 17:21 | XMS_ITS | Encounter Summary ---
Author Organization 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 [...] [facility] Ophthalmology - [address] [phone] Gagandeep Rome MD [address] [place] [address] [address] [place] [phone] 02/11/2025 13:30 EDT Telemedicine [facility] Hematology & Oncology [address] [phone] Dana Padilla MD [address] [place] [address] [address] [place] [address] documented as of this encounter Procedures Procedure Name Priority Date/Time Associated Diagnosis Comments T4 FREE Routine 08/28/2020 documented in this encounter Results * T4 FREE (08/28/2020) Free T4, External 1.05 [facility] Blood VENOUS BLOOD / Unknown 08/28/2020 us Historical Provider CHEMISTRY & BLOOD GAS ORD ERABLES Final Result [facility] documented in this encounter Visit Diagnoses Not on filedocumented in this encounter Care Teams Crop Roller Relationship Specialty Start Date End Date Emigdio Veronica MD [address] [place] [phone] PCP - General Internal Medicine - Primary Care 05/22/20 02/21/24 documented as of this encounter
--- OUTSIDE RECORDS SUMMARY | 2024-11-22 17:21 | XMS_ITS | Encounter Summary ---
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 CURRENT THERAPY: none PRIOR THERAPY: none CC: follow up HISTORY OF PRESENT ILLNESS: 60 y.o. y.o. years old white female with past medical history of asthma, hyperlipidemia, GERD, history of nonalcoholic fatty liver disease, history of hepatitis C as well as known decompensated livercirrhosis with portal hypertension, severe hepatosplenomegaly as well as history of hepatic encephal opathy is being transferring care from [facility] to [facility] because of relocation. Patient is following Dr. Ijeoma Smith, GI Department in [facility] for long-standing decompensated liver cirrhosis, portal hypertension and hepatic encephalopathy. She was also formerly seen by hematology oncology clinic in [facility], underwent bone marrow biopsy for pancytopenia [...] longer seeing Dr. Smith in hepatology in [facility]. TIPS and liver transplant listing are on stand by. ROS: 10 review of system is completed and is negative, except for the pertinent positives noted above. PAST MEDICAL HISTORY: Past Medical History: Diagnosis Date ??? Anemia ??? Anxiety ??? Asthma ??? Bleeding disorder (HCC-CMS) ??? Bursitis right shoulder ??? C. difficile colitis 07/25/2015 Hospitalized after kidney stone removal ??? Chronic kidney disease ??? Cirrhosis of liver (HCC-CMS) ??? Clotting disorder (HCC-CMS) ??? Depression ??? Drug-seeking behavior Per Dr [...] Lyrica [pregabalin]; and Reglan [metoclopramide hcl] MEDICATIONS: albuterol, budesonide-formoterol HFA, ergocalciferol (vitamin D2), ferrous gluconate, levothyroxinesodium, ondansetron, spironolactone, tamsulosin, traMADoL, and traZODone SOCIAL HISTORY: Social History Socioeconomic History ??? Marital status: Single Spouse name: Not on file ??? Number of children: Not on file ??? Years of education: Not on file ??? Highest education level: Not on file Occupational History ??? Not on file Social Needs ??? Financial resource strain: Not on file ??? Food insecurity: Worry: Not on file Inability: Not on file ??? Transportation needs: Medical: Not on file Non-medical: Not on file Tobacco Use ??? Smoking status: Current Every Day Smoker Packs/day: 1.00 Years: 20.00 Pack years: 20.00 ??? Smokeless tobacco: Never Used Substance and Sexual Activity ??? Alcohol use: No Alcohol/week: 0.0 standard drinks ??? Drug use: No ??? Sexual activity: Not on file Lifestyle ??? Physical activity: Days per week: Not on file Minutes per session: Not on file ??? Stress: Not on file Relationships ??? Social connections: Talks on phone: Not on file Gets together: Not on file Attends faith service: Not on file Active member of club or organization: Not on file Attends meetings of clubs or organizations: Not on file Relationship status: Not on file ??? Intimate partner violence: Fear of current or ex partner: Not on file Emotionally abused: Not on file Physically abused: Not on file Forced sexual activity: Not on file Other Topics Concern ??? Not on file Social History Narrative ??? Not on file FAMILY HISTORY: Family History Problem Relation Age of Onset ??? Cancer Maternal Grandmother ??? Diabetes Mother ??? Coronary Artery Disease Father ??? Clotting Disorder Father ??? Diabetes Brother PHYSICAL EXAMINATION: Constitutional: alert and oriented to person, place, and time. Not in acute distress. Well-developed and well-nourished. HEENT: Head: Normocephalic and atraumatic. Eyes: Conjunctivae [...] Judgment and thought content normal. LABS REVIEWED: Sep 03, 2020 - [facility] PATHOLOGIST REVIEW,HEMATOLOGY See Comment Result Comments: Pancytopenia and hepatosplenomegaly by CT scan. Per ED physician report, patient is followed by [facility] Hematology. Smear reviewed by pathologist for quality supervisor. Roberto Reddy MD 09/04/20 SODIUM 136 137-145 Low mmol/L POTASSIUM 4.1 3.6-5.0 mmol/L CHLORIDE 98 98-107 mmol/L CARBON DIOXIDE 32 22-30 High mmol/L ANION GAP 6 7-16 Low BLOOD UREA NITROGEN (BUN) 18 7-17 High mg/dL CREATININE 1.18 0.52-1.04 High mg/dL GLOMERULAR FILTRATION RATE 47 >60 Low mL/min GLUCOSE 96 70-100 mg/dL CALCIUM 9.0 8.4-10.2 mg/dL CALCULATED CALCIUM 9.2 8.4-10.2 mg/dL BILIRUBIN,TOTAL 0.9 0.2-1.3 mg/dL ASPARTATE AMINO TRANSFERASE 31 14-36 U/L ALANINE AMINOTRANSFERASE 15 <35 Labs reviewed and show platelet count of 43,000, unchanged from before. IMAGING REVIEWED: June 01, 2017: Findings: The [...] interpretation and agree with the findings. PATHOLOGY: [facility] on May 01, 2019 she underwent a bone marrow biopsy that showed mature trilineage hematopoiesis with no evidence of bone marrow disease. Bone marrow biopsy 04/09/2013: (Performed at [facility]) ---Diagnosis--- 1. Progressive pancytopenia, chronic Hep C [...] hypersplenism. - Patient was formerly evaluated at [facility] with subsequent bone marrow biopsy that showed no evidenceof clonal population or any maturation defects, her BMBX in April 2019 again confirmed the similar findings - labs reviewed and overall stable. - If patient requires surgery we could consider platelet transfusions as well as TPO agents: Lusutrombopag is currently approved for thrombocytopenia in adults with chronic liver disease who are scheduled to undergo a medical or dental procedure. The recommended lusutrombopag dosage is 3 mg orally once daily with or without food for 7 days. Approval was based on two randomized, double-blind, placebo-controlled trials (L-PLUS 1 and L-PLUS 2, [id number]) involving 312 patients with chronic liver disease and severe thrombocytopenia who were undergoing an invasive procedure and had a platelet count less than 50 x 109/L. Plan: - Return in 6 months, labs every 3 months. [facility] Pa[facility] Hematology and Oncology I spent _25___ minutes face to face time with the patient, and 20____minutes of that time were spent in counseling the patient on newly( established) diagnosis/ medication options, side effects and coordination of care. All their questions were answered to their satisfaction. The patient agreed with the management plan. AT THE TIME OF THIS PATIENT'S CARE AND DICTATION I HAD LIMITED ACCESS TO MEDICAL RECORDS DUE TO CYBER ATTACK AFFECTING [facility]. Starr Paige MD / DINORAH Dictation ID: [id number] documented in this encounter Plan of Treatment Upcoming Encounters Date Type Department Care Team (Late st Contact Info) Description 01/04/2025 13:00 EST [facility] - [address] [phone] Gagandeep Rome MD [address] [place] [address], [facility] [address] [place] [phone] 02/11/2025 13:30 EDT Telemedicine [facility] Hematology & Oncology [address] [phone] Dana Padilla MD [address] [place] [address], [facility] [address] [place] [phone] documented as of this encounter Visit Diagnoses Diagnosis Pancytopenia (HCC-CMS)- Primary Other pancytopenia documented in this encounter Care Teams Room Service Supervisor Relationship Specialty Start Date End Date Emigdio Veronica MD [address] [place] [phone] PCP - General Internal Medicine - Primary Care 05/22/20 02/21/24 documented as of this encounter
--- OUTSIDE RECORDS SUMMARY | 2024-11-22 17:21 | XMS_ITS | Encounter Summary ---
Author Organization [facility] Address [address] [place] [address] Care Team Providers Care Building Guard Deputy Sheriff Name Role Phone Emigdio Veronica MD Primary Care Provider + Starr Paige MD Unavailable Dana Padilla MD Unavailable Izabella Snowden [facility] Unavailable None, Provider Primary Care Provider UnavailGabriel Dacosta Primary Care Provider Mirna Guerrero Primary Care Provider + Encounter Details Date Type Department Care Team (Late st Contact Info) Description 09/14/2020 Lab Requisition [facility] Pathology & Laboratory Medicine - [facility] [address] [place], [place] [phone] Outr Resulting Lab, Provider Social History Tobacco Use Types Packs/Day Years [...] 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 [...] 7:00 EDT Chao Saravia say, RN * Because of [...] [facility] Ophthalmology - [address] [phone] Gagandeep Rome MD [address] [place] [address] 5 [place] [phone] 02/11/2025 13:30 EDT Telemedicine [facility] Hematology & Oncology [address] [phone] Dana Padilla MD [address] [place] [address] 2 [place] [address] documented as of this encounter Procedures Procedure Name Priority Date/Time Associated Diagnosis Comments ZZCOVID-19 TEST [facility] PCR Today 09/14/2020 10:00 EDT COVID-19 TESTING Routine 09/14/2020 10:0 0 EDT documented in this encounter Results * COVID-19 TEST [facility] PCR (09/14/2020 10:00 EDT) Swab ENTIRE NASOPHARYNX / Unknown 09/14/2020 10:00 EDT 09/14/2020 16:12 EDT us Provider Outr Resulting Lab MICROBIOLOGY - GENER AL ORDERABLES Final Result [facility] [address] [place] [address] * COVID-19 TESTING (09/14/2020 10:00 EDT) COVID-19 rt-PCR Result Negative Negative 09/14/2020 22:33 EDT [facility] Comment: This test has [...] history, and epidemiological information. Performed on the Mediamindher Fusion instrument Performing Lab [facility] Lab 09/14/2020 22:33 EDT [facility] Swab 09/14/2020 10:0 0 EDT 09/14/2020 16:12 EDT us Provider Outr Resulting Lab MICROBIOLOGY - GENER AL ORDERABLES Final Result [facility] [address] [place] [address] documented in this encounter Visit Diagnoses Not [...] documented as of this encounter Care Teams Building Guard Deputy Sheriff Relationship Specialty Start Date End Date Emigdio Veronica MD 2 [place] [phone] PCP - General Internal Medicine - Primary Care 05/22/20 02/21/24 None, Provider PCP - General 02/24/24 03/18/24 Gabriel Gandara PA PCP - General 03/19/24 09/11/24 Mirna Guerrero PA [address] [place] [address] PCP - General 09/12/24 Starr Paige MD [address] [place] [phone] Hematology 10/08/21 06/09/22 Dana Padilla MD 111 [facility], [facility], Level 2 [place] [address] Hematology 01/13/22 06/09/22 Izabella Snowden, [facility] 1 [facility], 3rd [place] [address] Wildlife Policy Professional 02/21/23 05/03/24 documented as of this encounter
--- OUTSIDE RECORDS SUMMARY | 2024-11-22 17:21 | XMS_ITS | Encounter Summary ---
Author Organization [facility] Address [address] [place] [address] Care Team Providers Care Rail Detector Car Operator Name Role Phone Emigdio Veronica MD Primary Care Provider + Starr Paige MD Unavailable Dana Padilla MD Unavailable Izabella Snowden [facility] Unavailable None, Provider Primary Care Provider UnavailGabriel Dacosta Primary Care Provider Mirna Guerrero Primary Care Provider + Reason for Visit * Reason Onset Date Comments COVID-19 09/12/2020 Encounter Details Date Type Department Care Team (Late st Contact Info) Description 09/12/2020 Telephone [facility] - [employer] [address] [place] [address] Katherin Casey, HARSH 1 [facility], Level 2 [place] [address] COVID-19 Social History Tobacco [...] Industry Job Start Date Job End Date [employer]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 Order faxed to [facility] documented in this encounter Plan of Treatment Upcoming Encounters Date Type Department Care Team (Late st Contact Info) Description 01/04/2025 13:00 EST Office Visit [facility] Ophthalmology - [address] [phone] Gagandeep Rome MD [address] [place] [address], [facility] 5 [place] [address] 02/11/2025 13:30 EDT Telemedicine [facility] Hematology & Oncology - [address] [phone] Dana Padilla MD [address] [place] [address], [facility] 2 [place] [address] documented as of this [...] documented as of this encounter Care Teams Rail Detector Car Operator Relationship Specialty Start Date End Date Emigdio Veronica MD 2 [place] [phone] PCP - General Internal Medicine - Primary Care 05/22/20 02/21/24 None, Provider PCP - General 02/24/24 03/18/24 Gabriel Gandara PA PCP - General 03/19/24 09/11/24 Mirna Guerrero PA [address] [place] [address] PCP - General 09/12/24 Starr Paige MD [address] [place] [phone] Hematology 10/08/21 06/09/22 Dana Padilla MD 111 [facility], Level 2 [place] [phone] Hematology 01/13/22 06/09/22 Izabella Snowden, [facility] 1 [facility], 3rd [place] [address] Automobile Glass Technician 02/21/23 05/03/24 documented as of this encounter
--- OUTSIDE RECORDS SUMMARY | 2024-11-22 17:21 | XMS_ITS | Encounter Summary ---
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 Not [...] encounter Miscellaneous Notes * Telephone Encounter - Froy Lydia - 09/09/2020 1627 EDT Called pt to schedule URGT SPLIT PSG 2:1 TcC02 [facility] LOPEZ 10.31.20 @ 1999 documented in this encounter Plan of Treatment Upcoming Encounters Date Type Department Care Team (Late st Contact Info) Description 01/04/2025 13:00 EST [facility] Visit [facility] Op[facility] - [address] [phone] Gagandeep Rome MD [address] [place] [address] 5 [place] [address] 02/11/2025 13:30 EDT Telemedicine [facility] Hematology & Oncology - [address] [phone] Dana Padilla MD [address] [place] [address], [facility] 2 [place] [phone] documented as of this encounter Visit Diagnoses [...] documented as of this encounter Care Teams Civil Technician Relationship Specialty Start Date End Date Emigdio Veronica MD 2 [place] [address] PCP - General Internal Medicine - Primary Care 05/22/20 02/21/24 Starr Paige MD [address] [place] [phone] Hematology 10/08/21 06/09/22 Dana Padilla MD 111 [facility], [facility] 2 [place] [phone] Hematology 01/13/22 06/09/22 documented as of this encounter
--- OUTSIDE RECORDS SUMMARY | 2024-11-22 17:21 | XMS_ITS | Encounter Summary ---
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 * Telephone Encounter - Bryan Roland RN - 09/11/2020 1419 EDT ----- Message from Kaitlynn Vinson sent at 09/11/2020 14:17 EDT ----- Regarding: Covid test order needed Please enter a Covid test order for Phyliss' PFT on 09/25, provider is Julia. documented in this encounter Plan of Treatment Upcoming Encounters Date Type Department Care Team (Late st Contact Info) Description 01/04/2025 13:00 EST Office Visit [facility] Ophthalmology - [address] [phone] Gagandeep Rome MD [address] [place] [address] 5 [place] [address] 02/11/2025 13:30 EDT Telemedicine [facility] Hematology & Oncology - [address] [phone] Dana Padilla MD 111 [facility] [place], [facility] 2 [place] [phone] documented as of this encounter Visit Diagnoses Diagnosis 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
--- OUTSIDE RECORDS SUMMARY | 2024-11-22 17:21 | XMS_ITS | Encounter Summary ---
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 Not [...] Office Visit [facility] Ophthalmology - [address] [phone] Gagandeep Rome MD 111 [facility], [facility] 5 [place] [phone] 02/11/2025 13:30 EDT Telemedicine [facility] Hematology & Oncology - [address] [phone] Dana Padilla MD 111 [facility], Level 2 [place] [phone] documented as of this encounter Visit Diagnoses Not on filedocumented in this encounter Care Teams Orthopedic Brace Maker Relationship Specialty Start Date End Date Emigdio Veronica MD 2 [place] [phone] PCP - General Internal Medicine - Primary Care 05/22/20 02/21/24 documented as of this encounter
--- OUTSIDE RECORDS SUMMARY | 2024-11-22 17:21 | XMS_ITS | Encounter Summary ---
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 30 Tab 1 09/02/2020 11/20/2020 documented in this encounter Miscellaneous Notes * Telephone Encounter - Dinorah Karol - 09/02/2020 1308 EDT Requested Prescriptions Pending Prescriptions Disp Refills ??? ondansetron (ZOFRAN) 4 mg tablet [Pharmacy Med Name: ONDANSETRON HCL 4 MG TABLET] 30 Tab 0 Sig: TAKE 1 TAB BY MOUTH 2 TIMES DAILY NEEDED FOR NAUSEA. [id number] - [place], [place] - [address] Confirmed Pharmacy? Yes Patient out of medication? Yes: Needs Refill Now Last Refill Date: 08/04/20 Refills left? (explain exceptions requiring early refill) No Recent Visits Date Type Provider Dept 08/22/20 Office Visit Emigdio Veronica MD [place] [facility] 08/01/20 Office Visit Emigdio Veronica MD [place] [facility] 06/23/20 Office Visit Emigdio Veronica MD [place] [facility] 05/29/20 Office Visit Emigdio Veronica MD [place] [facility] 05/22/20 Office Visit Emigdio Veronica MD [place] [facility] Showing recent visits within past 540 days with a meds authorizing provider and meeting all other requirements Future Appointments Date Type Provider Dept 09/05/20 Appointment Emigdio Veronica MD [place] [facility] 10/31/20 Appointment Emigdio Veronica MD [place] [facility] Showing future appointments within next 150 days with a meds authorizing provider and meeting all other requirements Future appointment: Already Scheduled Karol Copeland 09/02/2020 13:08 documented in this encounter Plan of Treatment Upcoming Encounters Date Type Department Care Team (Late st Contact Info) Description 01/04/2025 13:00 EST Office Visit [facility] Ophthalmology - [address] [phone] Gagandeep Rome MD [address] [place] [address], Level 5 [place] [phone] 02/11/2025 13:30 EDT Telemedicine [facility] Hematology & Oncology - [address] [phone] Dana Padilla MD [address] [place] [address], [facility] 2 [place] [phone] documented as of this encounter Visit Diagnoses Not on filedocumented in this encounter Discontinued Medications Medication Sig Discontinue Reason Start Date End Da te ondansetron (ZOFRAN) 4 mg tablet Take 1 Tab by mouth 2 times daily as needed for Nausea. 08/04/2020 09/02/2020 documented as of this encounter Care Teams Diet Kitchen Cook Relationship Specialty Start Date End Date Emigdio Veronica MD 2 [place] [phone] PCP - General Internal Medicine - Primary Care 05/22/20 02/21/24 documented as of this encounter
--- OUTSIDE RECORDS SUMMARY | 2024-11-22 17:21 | XMS_ITS | Encounter Summary ---
Author Organization 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 docusate sodium (COLACE) 100 mg capsule [Pharmacy Med Name: DOCUSATE SODIUM 100 MG SOFTGEL] 60 Cap 0 Sig: TAKE 1 CAPSULE BY MOUTH TWICE A DAY ??? SENNA LAXATIVE 8.6 mg tablet [Pharmacy Med Name: [facility] SENNA LAXATIVE 8.6 MG TAB] 30 Tab 0 Sig: TAKE 1 TABLET BY MOUTH EVERYDAY AT BEDTIME [id number] - [place], [place] - [address] [place] [address] Confirmed Pharmacy? Yes Patient out of medication? Unknown Last Refill Date: 08/01/20 Refills left? (explain exceptions requiring early refill) No Recent Visits Date Type Provider Dept 08/22/20 Office Visit Emigdio Veronica MD [place] [facility] 08/01/20 Office Visit Emigdio Veronica MD [place] [facility] 06/23/20 Office Visit Emigdio Veronica MD [place] [facility] 05/29/20 Office Visit Emigdio Veronica MD [place] [facility] 05/22/20 Office Visit Emigdio Veronica MD [place] [facility] Showing recent visits within past 540 days with a meds authorizing provider and meeting all other requirements Future Appointments Date Type Provider Dept 09/05/20 Appointment Emigdio Veronica MD [place] [facility] 10/31/20 Appointment Emigdio Veronica MD [place] [facility] Showing future appointments within next 150 days with a meds authorizing provider and meeting all other requirements Future appointment: Already Scheduled KAROL ARMSTRONG RN 09/01/2020 14:55 documented in this encounter Plan of Treatment Upcoming Encounters Date Type Department Care Team (Late st Contact Info) Description 01/04/2025 13:00 EST Office Visit [facility] Ophthalmology - [address] [phone] Gagandeep Rome MD [address] [place] [address], [facility] 5 [place] [phone] 02/11/2025 13:30 EDT Telemedicine [facility] Hematology & Oncology [address] [phone] Dana Padilla MD [address] [place] [address] 2 [place] [address] documented as of this encounter Visit Diagnoses Not on filedocumented in this encounter Discontinued Medications Medication Sig Discontinue Reason Start Date End Da te docusate sodium (COLACE) 100 mg capsule Take 1 Cap by mouth 2 times daily. 08/01/2020 09/01/2020 senna (SENOKOT) 8.6 mg tablet Take 1 Tab by mouth at bedtime. 08/01/2020 09/01/2020 documented as of this encounter Additional Health Concerns Infection Onset Date Last Indicated Resolved Time R/O COVID-19 08/25/2020 08/25/2020 08/30/2020 22:1 5 EDT documented as of this encounter Care Teams Excellence Manager Relationship Specialty Start Date End Date Emigdio Veronica MD 2 [place] [phone] PCP - General Internal Medicine - Primary Care 05/22/20 02/21/24 documented as of this encounter
--- OUTSIDE RECORDS SUMMARY | 2024-11-22 17:21 | XMS_ITS | Encounter Summary ---
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 she requested to reschedule, changed to 10/18/20 at 9 am. 5 min call, 5 min note. .. Adult Primary Care [place], [address], [place] Total Time: 5 min call, 5 min note Referral: na Follow up: 10/18/20 With: Doris Joseph Ironmolder Location: Adult Primary Care [place], [address], [place] Status: Active documented in this encounter Plan of Treatment Upcoming Encounters Date Type Department Care Team (Late st Contact Info) Description 01/04/2025 13:00 EST Office Visit [facility] Ophthalmology - [address] [phone] Gagandeep Rome MD [address] [place] [address], [facility] 5 [place] [phone] 02/11/2025 13:30 EDT Telemedicine [facility] Hematology & Oncology - [address] [phone] Dana Padilla MD [address] [place] [address], [facility] 2 [place] [address] documented as of this encounter Visit Diagnoses Not on filedocumented in this encounter Care Teams Certified Alcohol And Drug Counselor Relationship Specialty Start Date End Date Emigdio Veronica MD [address] [place] [address] PCP - General Internal Medicine - Primary Care 05/22/20 02/21/24 documented as of this encounter
--- OUTSIDE RECORDS SUMMARY | 2024-11-22 17:21 | XMS_ITS | Encounter Summary ---
Author Organization [facility] Address [address] [place] [address] Care Team Providers Care Building Engineer Name Role Phone Emigdio Veronica MD Primary Care Provider + Reason for Visit * Reason Onset Date Comments Chest Pain 09/03/2020 Headache 09/03/2020 Fatigue 09/03/2020 Encounter Details Date Type Department Care Team (Late st Contact Info) Description 09/03/2020 Telephone [facility] Adult Primary Care - [place] [address] [place] [address] Emigdio Veronica MD [address] [place] [phone] Chest Pain; Headache; Fatigue Social History Tobacco Use Types Packs/Day [...] 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 She was unable to get hold of her fiance or neighbor to give her a ride and she is experiencing worsening symptoms. Discussed with patient that it is recommended 911 be called, she requested triage call 911, and stated she would make sure her front door is unlocked. Report given to paper reclaiming machine operator who stated they would dispatch rescue. * Telephone Encounter - Karol Hoff RN - 09/03/2020 1156 EDT Spoke to patient who does have a history of anxiety, but also a recent history of pulmonary edema, seen at [facility] ED on 08/25/20. She reports some mild chest burning last evening, but she was able to sleep over night. This morning chest burning is worsening, radiating up into her neck, causing a headache. She reports she thinks it may be heartburn, but denies a history of heartburn. She does report some SOB and that the chest burning is worsening when she walks into another room. Patient also reports lethargy. Advised patient it could be her heart and she should present to the local ED emergently. She will try to get a hold of her fiance to see if he can get out of work early to give her a ride. Advised patient for any worsening symptoms to call 911 and not wait for fiance. Report given Kristal at [facility] ED. * Telephone Encounter - Cris Copeland - 09/03/2020 1138 EDT Reason for Call: Chest Pain, Headache, and Fatigue Summary/Symptoms: Pt says that she feels a burning pain in her chest. Says almost like heartburn but 100% worse Going up the back of neck and causing a headache as well. Started last night, then subsided a little, but is back. Fatigue, can hardly keep her eyes open. Onset and Duration: last night Does the patient have a computer, laptop or smart phone with high speed & video capability? N/A If so, would they be interested in doing a video visit via Zoom? N/A Appointment Offered? No Cris Copeland 09/03/2020 11:38 documented in this encounter Plan of Treatment Upcoming Encounters Date Type Department Care Team (Late st Contact Info) Description 01/04/2025 13:00 EST Office Visit [facility] Ophthalmology - [address] [phone] Gagandeep Rome MD [address] [place] [address], [facility] [address] [place] [phone] 02/11/2025 13:[address] [facility] Hematology & Oncology - [address] [phone] Dana Padilla MD [address] [place] [address], [facility] [address] [place] [phone] documented as of this encounter Visit Diagnoses Not on filedocumented in this encounter Care Teams Building Engineer Relationship Specialty Start Date End Date Emigdio Veronica MD [address] [place] [phone] PCP - General Internal Medicine - Primary Care 05/22/20 02/21/24 documented as of this encounter
--- OUTSIDE RECORDS SUMMARY | 2024-11-22 17:21 | XMS_ITS | Encounter Summary ---
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 Not [...] Date of Assessment Author No 04/26/2020 7:00 EDChao Reina RN * Are you blind or do [...] Visit [facility] Ophthalmology - [address] [phone] Gagandeep Rome MD [address] [place] [address], [address] [place] [phone] 02/11/2025 13:30 EDT Telemedicine [facility] Hematology & Oncology - [address] [address] Dana Padilla MD [address] [place] [address], [address] [place] [phone] documented as of this encounter Procedures Procedure Name Priority Date/Time Associated Diagnosis Comments COMPLETE BLOOD COUNT Routine 08/22/2020 16:35 EDT Fatigue, unspecified type TSH Routine 08/22/2020 16:35 EDT Fatigue, unspecified type COMPREHENSIVE METABOLIC PANEL (CMP) Routine 08/22/2020 16:35 EDT Weight gain documented in this encounter Results * (ABNORMAL) COMPLETE BLOOD COUNT (08/22/2020 16:35 EDT) WBC 1.40(L) 4.00 - 12.40 K/cmm 08/22/2020 19:29 EDT [facility] RBC 3.70(L) 3.86 - 5.04 M/cmm 08/22/2020 19:29 EDT [facility] Hemoglobin 11.0(L) 11.6 - 15.2 gm/dL 08/22/2020 19:29 EDT [facility] HCT 33.9(L) 34.9 - 44.4 % 08/22/2020 19:29 EDT [facility] MCV 92 81 - 98 fl 08/22/2020 19:29 EDT [facility] MCH 29.7 26.7 - 33.3 pg 08/22/2020 19:29 EDT [facility] MCHC 32.4 32.1 - 35.9 gm/dL 08/22/2020 19:29 EDT [facility] RDW-CV 14.0 <14.7 % 08/22/2020 19:29 EDT [facility] RDW-SD 47.0 <50.4 fl 08/22/2020 19:29 EDT [facility] PLT 41(L) 141 - 377 K/cmm 08/22/2020 19:29 EDT [facility] MPV 11.0 9.5 - 12.7 fl 08/22/2020 19:29 EDT [facility] Blood VENOUS BLOOD / Unknown Venipuncture / Unknown 08/22/2020 16:35 EDT 08/22/2020 16:36 EDT us Emigdio Veronica MD HEMATOLOGY & PF4 ORDERAB LES Final Result Performing Organization Address [facility] Co de Phone Number [facility] [address] [place] [address] * TSH (08/22/2020 16:35 EDT) Pathologist [facility] TSH 4.31 0.47 - 4.68 uIU/mL 08/22/2020 20:00 EDT [facility] Blood VENOUS BLOOD / Unknown Venipuncture / Unknown 08/22/2020 16:35 EDT 08/22/2020 16:36 EDT Narrative [facility] - 08/22/2020 20:00 EDT The results of this assay can be falsely lowered due to the consumption of Biotin. us Emigdio Veronica MD CHEMISTRY & BLOOD GAS OR DERABLES Final Result Performing Organization Address City/[facility]/ZIP Co de Phone Number [facility] [address] [place] [address] * COMPREHENSIVE METABOLIC PANEL (CMP) (08/22/2020 16:35 EDT) Sodium 141 136 - 145 mEq/L 08/22/2020 19:27 [facility] Potassium 4.4 3.5 - 5.0 mEq/L 08/22/2020 19:27 [facility] Chloride 102 96 - 110 mEq/L 08/22/2020 19:27 [facility] CO2 Total 31 22 - 32 mEq/L 08/22/2020 19:27 [facility] Glucose 78 70 - 100 mg/dL 08/22/2020 19:27 [facility] BUN 17 10 - 26 mg/dL 08/22/2020 19:27 [facility] Creatinine 0.98 0.52 - 1.04 mg/dL 08/22/2020 19:27 [facility] eGFR 63 >60 mL/min/1.7 3m2 08/22/2020 19:27 [facility] Comment:eGFR calculated lobito coppola CKD-EPI equation for non- Americans. Multiply eGFR by 1.16 for patients. Total Protein 6.4 6.3 - 8.2 g/dL 08/22/2020 19:27 [facility] Albumin 3.6 3.4 - 4.9 g/dL 08/22/2020 19:27 [facility] Alkaline Phosphatase 92 38 - 126 U/L 08/22/2020 19:27 [facility] AST 22 15 - 46 U/L 08/22/2020 19:27 [facility] ALT 11 <35 U/L 08/22/2020 19:27 [facility] Bilirubin, Total <0.5 <1.4 mg/dL 08/22/20 20 19:27 [facility] Calcium 8.8 8.5 - 10.5 mg/dL 08/22/2020 19:27 [facility] Calculated Calcium 9.1 8.5 - 10.5 mg/dL 08/22/2020 19:27 [facility] Blood VENOUS BLOOD / Unknown Venipuncture / Unknown 08/22/2020 16:35 EDT 08/22/2020 16:36 EDT us Emigdio Veronica MD CHEMISTRY & BLOOD GAS OR DERABLES Final Result [facility] [address] [place] [address] documented in this encounter Visit Diagnoses Diagnosis Weight gain Abnormal weight gain Fatigue, unspecified type documented in this encounter Care Teams Avionics System Engineer Relationship Specialty Start Date End Date Emigdio Veronica MD [address] [place] [phone] PCP - General Internal Medicine - Primary Care 05/22/20 02/21/24 documented as of this encounter
--- OUTSIDE RECORDS SUMMARY | 2024-11-22 17:21 | XMS_ITS | Encounter Summary ---
Author Organization [facility] Address [address] [place] [address] Care Team Providers Care Storm Chaser Name Role Phone Emigdio Veronica MD Primary Care Provider + Reason for Referral * Radiology Services (Urgent) - Closed Specialty Diagnoses / Procedures Referred By Contac t Referred To Contact Diagnoses SOB (shortness of breath) Procedures XR CHEST 2 VIEWS Emigdio Veronica MD Phone: tel: fax: Referral ID Status Reason Start Date Expiration Date Visits Re quested Visits Authorized [id number] Closed 08/22/2020 1 1 Reason for Visit * Radiology Services (Urgent) - Closed Specialty Diagnoses / Procedures Referred By Contac t Referred To Contact Diagnoses SOB (shortness of breath) Procedures XR CHEST 2 VIEWS Emigdio Veronica MD Phone: tel: fax: Referral ID Status Reason Start Date Expiration Date Visits Re quested Visits Authorized [id number] Closed 08/22/2020 1 1 Encounter Details Date Type Department Care Team (Latest Contact Info) Description 08/22/2020 15:47 EDT - 08/22/2020 23:59 EDT Hospital Encounter [facility] [address] [place], [place] [id number] SOB (shortness of breath) Discharge Disposition: Home or Self Care Social [...] 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 1 Inhaler 11 06/20/2020 1 tamsulosin (FLOMAX) 0.4 mg capsule Take 1 Cap by mouth daily. 30 Cap 11 02/19/2020 1 umeclidinium (INCRUSE ELLIPTA) 62.5 mcg/actuationInd ications:COPD with asthma ([facility]) Take 1 Puff by mouth daily. 1 Each 11 06/20/2020 1 documented as of this encounter Discharge Disposition Disposition Code Departure Means Destination Home or Self Care documented in this encounter Plan of Treatment Upcoming Encounters Date Type Department Care Team (Late st Contact Info) Description 01/04/2025 13:00 EST Office Visit [facility] Ophthalmology - [address] [phone] Gagandeep Rome MD [address] [place] [address], [facility] [address] [place] [phone] 02/11/2025 13:30 EDT Telemedicine [facility] Hematology & Oncology [address] [address] Dana Padilla MD [address] [place] [address] [address] [place] [phone] documented as of this encounter Procedures Procedure Name Priority Date/Time Associated Diagnosis Comments XR CHEST 2 VIEWS STAT 08/22/2020 16:0 1 EDT SOB (shortness of breath) documented in this encounter Results * XR CHEST 2 VIEWS (08/22/2020 16:01 EDT) Anatomical Region Laterality Modality Computed Radiogr aphy 08/22/2020 16:0 4 EDT Impressions 08/22/2020 16:04 EDT Likely mild pulmonary edema Narrative 08/22/2020 16:04 EDT XR CHEST 2 VIEWS ??08/22/2020 4:00 PM CLINICAL HISTORY/COMMENTS: SOB worsening over the last two weeks with 10 pound weight gain. High concern for volume overload rule out pleural edema or consolidations concerning for pleural effusions COMPARISON: 04/19/2020 and 04/26/2020. TECHNIQUE: Two views of the chest were performed using dual energy technique with bone and soft tissue reconstruction. FINDINGS: The pulmonary vessels are indistinct, but improved from the prior study and there is no fissural thickening or pleural fluid. Linear scarring or atelectasis is present in the lingula. The cardiac silhouette is normal in size. There is no evidence of pneumothorax or consolidation. The skeleton is unremarkable for age. Procedure Note Colt Burciaga MD - 08/22/2020 XR CHEST 2 VIEWS 08/22/2020 4:00 PM CLINICAL HISTORY/COMMENTS: SOB worsening over the last two weeks with 10 pound weight gain. Highconcern for volume overload rule out pleural edema or consolidationsconcerning for pleural effusions COMPARISON: 04/19/2020 and 04/26/2020. TECHNIQUE: Two views of the chest were performed using dual energy technique withbone and soft tissue reconstruction. FINDINGS: The pulmonary vessels are indistinct, but improved from theprior study and there is no fissural thickening or pleural fluid. Linearscarring or atelectasis is present in the lingula. The cardiac silhouetteis normal in size. There is no evidence of pneumothorax or consolidation.The skeleton is unremarkable for age. IMPRESSION Likely mild pulmonary edema us Emigdio Veronica MD IMG DIAGNOSTIC IMAGING O RDERABLES Final Result documented in this encounter Visit Diagnoses Diagnosis SOB (shortness of breath) Shortness of breath documented in this encounter Care Teams Storm Chaser Relationship Specialty Start Date End Date Emigdio Veronica MD [address] [place] [phone] PCP - General Internal Medicine - Primary Care 05/22/20 02/21/24 documented as of this encounter
--- OUTSIDE RECORDS SUMMARY | 2024-11-22 17:21 | XMS_ITS | Encounter Summary ---
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 [...] Info) Description 01/04/2025 13:00 EST Office Visit [facility] Ophthalmology - [address] [phone] Gagandeep Rome MD [address] [place] [address], [facility] [address] [place] [phone] 02/11/2025 13:30 EDT Telemedicine [facility] Hematology & Oncology - [address] [address] Dana Padilla MD [address] [place] [address], [facility] [address] [place] [phone] documented as of this encounter Visit Diagnoses Diagnosis Pancytopenia (HCC-CMS)- Primary Other pancytopenia documented in this encounter Care Teams Plater Barrel Relationship Specialty Start Date End Date Emigdio Veronica MD [address] [place] [phone] PCP - General Internal Medicine - Primary Care 05/22/20 02/21/24 documented as of this encounter
--- OUTSIDE RECORDS SUMMARY | 2024-11-22 17:21 | XMS_ITS | Encounter Summary ---
Author Organization [facility] Address [address] [place] [address] Care Team Providers Care Warehouse Team Leader Name Role Phone Emigdio Veronica MD Primary Care Provider + Reason for Referral * Radiology Services (Urgent) - Closed Specialty Diagnoses / Procedures Referred By [facility] Referred To Contact Diagnoses SOB (shortness of breath) Procedures XR CHEST 2 VIEWS Emigdio Veronica MD Phone: tel: fax: Referral ID Status Reason Start Date Expiration Date Visits Re quested Visits Authorized [id number] Closed 08/22/2020 1 1 Reason for Visit * Reason Comments Edema both legs Shortness of Breath Other lack of energy, feel ing depressed because she hasn't felt good for the past week; Sleep Problems Encounter Details Date Type Department Care Team (Late st Contact Info) Description 08/22/2020 14:30 EDT Office Visit [facility] Adult Primary Care - [place] [address] [place] [address] Emigdio Veronica MD [address] [place] [phone] SOB (shortness of breath) (Primary Dx); Weight gain; Fatigue, unspecified type Social History [...] 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 No / Unsure 08/22/2020 15:46 EDT documented as of this encounter Last Filed Vital Signs Vital Sign Reading Time Taken Comments Blood Pressure 84/50 08/22/2020 1426 EDT Pulse 64 08/22/2020 1426 EDT r Temperature 36.6 ??C (97.8 ??F) 08/22/2020 1426 EDT Respiratory Rate 16 08/22/2020 1426 EDT Oxygen Saturation - - Inhaled Oxygen Concentration - - Weight 93 kg (205 lb) 08/22/2020 1426 EDT Height - - Body Mass Index 35.19 08/19/2020 1006 EDT documented in this encounter [...] Progress Notes * Emigdio Veronica MD - 08/22/2020 1430 EDT S: Tara Yun is a 60 y.o. female with PMHx of asthma, COPD, cirrhosis of the liver related toNASH, HUEY who presents with a CC: of SOB, fatigue and worsening lower extremity edema Today Tara presents for acute symptoms of SOB, fatigue and worsening lower extremity edema. She states her symptoms began worsening over two weeks ago. She has gained 10 pounds since that time and is noting significant swelling in her feet and ankles. Her O2 saturation was 95% today. At our previous encounter on 08/01 we had reduced her diuretic regiment from 80 mg of lasix and 100 mg of spirolactone daily to 40 mg of lasix and 100 mg of spirolactone due to dizziness and low systolic blood pressures to the 80s. Her systolic blood pressure ream ins soft int he 80s today despite those changes. She notably presented to the ED for feeling dyspneic, but left AMA prior to reeving a full evaluation. She denies current chest pain, fevers, chills, nausea, stool changes, worsened abdominal distension or confusion. She states that she has had to sleep in a rocking chair recently due to difficulty with breathing lying flat, this is not a new issue for her, but appears to have worsened. She notes that her chronic anxiety has worsened lately. She confirms she is still smoking cigarettes. ROS as above Medications and history reviewed. Current Outpatient Medications Medication ??? albuterol (ACCUNEB) 2.5 mg /3 mL (0.083 %) nebulizer solution ??? albuterol 90 mcg/actuation inhaler ??? docusate sodium (COLACE) 100 mg capsule ??? ERGOCALCIFEROL, VITAMIN D2, (VITAMIN D ORAL) ??? ferrous gluconate (FERGON) 324 mg (38 mg iron) tablet ??? furosemide (LASIX) 40 mg tablet ??? LEVOTHYROXINE SODIUM (LEVOTHYROXINE ORAL) ??? ondansetron (ZOFRAN) 4 mg tablet ??? OXYGEN-AIR DELIVERY SYSTEMS MISC ??? senna (SENOKOT) 8.6 mg tablet ??? spironolactone (ALDACTONE) 100 mg tablet ??? SYMBICORT 160-4.5 mcg/actuation HFA aerosol inhaler inhaler ??? tamsulosin (FLOMAX) 0.4 mg capsule ??? umeclidinium (INCRUSE ELLIPTA) 62.5 mcg/actuation No current facility-administered medications for this visit. Facility-Administered Medications Ordered in Other Visits Medication Route Frequency ??? albuterol (ACCUNEB) 2.5 mg /3 mL (0.083 %) nebulizer solution O: BP (!) 84/50 (BP Cuff Location: Left arm, BP Patient Position: Sitting, BP Cuff Sizes: Adult, regular) Pulse 64 Comment: r Temp 36.6 ??C (97.8 ??F) (Temporal) Resp 16 Wt 93 kg (205 lb) BMI 35.19 kg/m?? Gen: Anxious appearing chronically ill female, NAD HEENT: EOMI, PERRL, oropharynx moist, conjunctiva pink, no scleral injection/ icterus CV: RRR, no murmurs, rubs or gallops Pulm: CTAB, diminished air movement bilaterally, no wheezes, rales, or rhonchi Abd: +BS, soft, NT, mildly distended, hepatomegaly noted Extrem: no edema, warm and well perfused Skin: No rashes or erythema, intact Neuro: A&Ox3 Recent Labs/Imaging: Reviewed in Epic A and P: Tara was seen today for edema, shortness of breath, other and sleep problems. Diagnoses and all orders for this visit: SOB (shortness of breath), Weight gain, Fatigue: Concerning for volume overload status secondary toNASH cirrhosis. High concern for pleural edema vs pleural effusion. Will send patient for stat x-rays - XR CHEST 2 VIEWS; Future - COMPREHENSIVE METABOLIC PANEL (CMP); Future - TSH; Future - COMPLETE BLOOD COUNT; Future - Assuming CXR and blood work come back unremarkable would favor aggressive treatment with diuretics this weekend by increasing lasix to 80 mg daily with spirolactone kept at 100 mg daily. Advised patient to monitor weights and follow-up with the clinic on Tuesday. If symptoms worsen or fail to improve low threshold for ED presentation. F/u: No follow-ups on file. Emigdio Veronica MD 08/24/2020 15:08 documented in this encounter Plan of Treatment Upcoming Encounters Date Type Department Care Team (Late st Contact Info) Description 01/04/2025 13:00 EST Office Visit [facility] Ophthalmology - [address] [phone] Gagandeep Rome MD [address] [place] [address], [address] [place] [phone] 02/11/2025 13:30 EDT Telemedicine [facility] Hematology & Oncology - [address] [address] Dana Padilla MD [address] [place] [address], [facility], [address] [place] [phone] documented as of this encounter Results * (ABNORMAL) COMPLETE BLOOD COUNT (08/22/2020 16:35 EDT) WBC 1.40(L) 4.00 - 12.40 K/cmm 08/22/2020 19:29 EDT [facility] RBC 3.70(L) 3.86 - 5.04 M/cmm 08/22/2020 19:29 [facility] Hemoglobin 11.0(L) 11.6 - 15.2 gm/dL 08/22/2020 19:29 [facility] HCT 33.9(L) 34.9 - 44.4 % 08/22/2020 19:29 [facility] MCV 92 81 - 98 fl 08/22/2020 19:29 T [facility] MCH 29.7 26.7 - 33.3 pg 08/22/2020 19:29 [facility] MCHC 32.4 32.1 - 35.9 gm/dL 08/22/2020 19:29 [facility] RDW-CV 14.0 <14.7 % 08/22/2020 19:29 [facility] RDW-SD 47.0 <50.4 fl 08/22/2020 19:29 [facility] PLT 41(L) 141 - 377 K/cmm 08/22/2020 19:29 [facility] MPV 11.0 9.5 - 12.7 fl 08/22/2020 19:29 [facility] Blood VENOUS BLOOD / Unknown Venipuncture / Unknown 08/22/2020 16:35 EDT 08/22/2020 16:36 EDT us Emigdio Veronica MD HEMATOLOGY & PF4 ORDERAB LES Final Result [facility] [address] [place] [address] * TSH (08/22/2020 16:35 EDT) TSH 4.31 0.47 - 4.68 uIU/mL 08/22/2020 20:00 [facility] Blood VENOUS BLOOD / Unknown Venipuncture / Unknown 08/22/2020 16:35 EDT 08/22/2020 16:36 EDT Narrative [facility] - 08/22/2020 20:00 EDT The results of this assay can be falsely lowered due to the consumption of Biotin. Emigdio Veronica MD CHEMISTRY & BLOOD GAS OR DERABLES Final Result [facility] [address] [place] [address] * COMPREHENSIVE METABOLIC PANEL (CMP) (08/22/2020 16:35 EDT) Sodium 141 136 - 145 mEq/L 08/22/2020 19:27 [facility] Potassium 4.4 3.5 - 5.0 mEq/L 08/22/2020 19:27 [facility] Chloride 102 96 - 110 mEq/L 08/22/2020 19:27 [facility] CO2 Total 31 22 - 32 mEq/L 08/22/2020 19:27 [facility] Glucose 78 70 - 100 mg/dL 08/22/2020 19:27 [facility] BUN 17 10 - 26 mg/dL 08/22/2020 19:27 [facility] Creatinine 0.98 0.52 - 1.04 mg/dL 08/22/2020 19:27 [facility] eGFR 63 >60 mL/min/1.7 3m2 08/22/2020 19:27 [facility] Comment:eGFR calculated lobito coppola CKD-EPI equation for non- Americans. Multiply eGFR by 1.16 for patients. Total Protein 6.4 6.3 - 8.2 g/dL 08/22/2020 19:27 EDT [facility] Albumin 3.6 3.4 - 4.9 g/dL 08/22/2020 19:27 [facility] Alkaline Phosphatase 92 38 - 126 U/L 08/22/2020 19:27 [facility] AST 22 15 - 46 U/L 08/22/2020 19:27 [facility] ALT 11 <35 U/L 08/22/2020 19:27 [facility] Bilirubin, Total <0.5 <1.4 mg/dL 08/22/20 20 19:27 [facility] Calcium 8.8 8.5 - 10.5 mg/dL 08/22/2020 19:27 [facility] Calculated Calcium 9.1 8.5 - 10.5 mg/dL 08/22/2020 19:27 [facility] Blood VENOUS BLOOD / Unknown Venipuncture / Unknown 08/22/2020 16:35 EDT 08/22/2020 16:36 EDT us Emigdio Veronica MD CHEMISTRY & BLOOD GAS OR DERABLES Final Result [facility] [address] [place] [address] * XR CHEST 2 VIEWS (08/22/2020 16:01 [...] for age. IMPRESSION Likely mild pulmonary edema Emigdio Veronica MD IMG DIAGNOSTIC IMAGING O RDERABLES Final Result documented in this encounter Visit Diagnoses Diagnosis SOB (shortness of breath)- Primary Shortness of breath Weight gain Abnormal weight gain Fatigue, unspecified type SOB (shortness of breath) Shortness of breath documented in this encounter Discontinued Medications Medication Sig Discontinue Reason Start Date End Da te cyclobenzaprine (FLEXERIL) 5 mg tablet Take 1 Tab by mouth daily as needed for Muscle Spasms. Side effects 08/01/2020 08/22/2020 traZODone (DESYREL) 50 mg tablet TAKE 1 TABLET BY MOUTH EVERYDAY AT BEDTIME Side effects 08/18/2020 08/22/2020 documented as of this encounter Care Teams Warehouse Team Leader Relationship Specialty Start Date End Date Emigdio Veronica MD [address] [place] [phone] PCP - General Internal Medicine - Primary Care 05/22/20 02/21/24 documented as of this encounter
--- OUTSIDE RECORDS SUMMARY | 2024-11-22 17:21 | XMS_ITS | Encounter Summary ---
Author Organization [facility] Address [address] [place] [address] Care Team Providers Care Rn Registry Name Role Phone Emigdio Veronica MD Primary Care Provider + Reason for Visit * Reason Comments Shortness of Breath Pt reports increased bilateral LE edema, midsternal CP, and SOB x3-4 days. 97% on RA. 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 No / Unsure 08/19/2020 10:07 EDT documented as of this encounter Last Filed Vital Signs Vital Sign Reading Time Taken Comments Blood Pressure 119/56 08/19/2020 1006 EDT Pulse 73 08/19/2020 1006 EDT Temperature 36.4 ??C (97.5 ??F) 08/19/2020 1006 EDT Respiratory Rate 19 08/19/2020 1006 EDT Oxygen Saturation 97% 08/19/2020 1006 EDT Inhaled Oxygen Concentration - - Weight 86.2 kg (190 lb) 08/19/2020 1006 EDT Height 162.6 cm (5' 4) 08/19/2020 1006 EDT Body Mass Index 32.61 08/19/2020 1006 EDT documented in this encounter [...] directed every 4 hours as needed. 1 cyclobenzaprine (FLEXERIL) 5 mg tablet Take 1 Tab by mouth daily as needed for Muscle Spasms. 21 Tab 08/01/2020 0 docusate sodium (COLACE) 100 mg capsule Take [...] mouth daily. 30 Cap 11 02/19/2020 1 traZODone (DESYREL) 50 mg tablet TAKE 1 TABLET BY MOUTH EVERYDAY AT BEDTIME 60 Tab 08/18/2020 0 umeclidinium (INCRUSE ELLIPTA) 62.5 mcg/actuationInd ications:COPD with asthma ([facility]) Take 1 Puff by mouth daily. 1 Each 11 06/20/2020 1 documented as of this encounter Discharge Disposition Disposition Code Departure Means Destination Left Against Medical Advice documented in this encounter ED Notes * Casandra Bravo - 08/19/2020 7748 EDT !!Tcall: Becca Yun 60 referred from [facility]. On going CP since yesterday. Worse with breathing. Described as someone punching her chest. Increased use of O2 with no relief. Dizziness and weakness. Worsening SOB and CP. ([place]) documented in this encounter Plan of Treatment Upcoming Encounters Date Type Department Care Team (Late st Contact Info) Description 01/04/2025 13:00 EST Office Visit [facility] [place] [address] Gagandeep Rome MD [address] [facility], [address] [place] [phone] 02/11/2025 13:30 EDT Telemedicine [facility] Hematology & Oncology - [facility] [address] [place], [place] [phone] Dana Padilla MD [address] [facility], [facility] [address] [place] [address] documented as of this encounter Procedures Procedure Name Priority Date/Time Associated Diagnosis Comments ECG REPORT - SCANNED 09/10/2020 15:16 EDT EKG 12-LEAD STAT 08/19/2020 10:13 EDT documented in this encounter Results * ECG REPORT - SCANNED (09/10/2020 15:16 EDT) 09/10/2020 15:1 6 EDT us Scan 2 Assistant Customer Service Manager PROCEDURE/MINOR SURGICAL OR DERABLES Final Result * EKG 12-LEAD (08/19/2020 10:13 EDT) 08/19/2020 10:1 3 EDT Narrative [facility] EKG - 09/10/2020 15:13 EDT ?[facility] Emergency ? Test Date: ?2020-08-19 Pat Name: ? PHYLISS YUN ?Department: ?? ED ? Room: ? Gender: ? Female ? Quill Reamer: ?? : ?1960 ? Requested By: CHANDU Victoria Order Number: [id number] ? Reading : ?? VICKEY DAVID ? Measurements Intervals ?[place] ? Rate: ? 70 ? P: ?55 [place]: ? 157 ?QRS: ?52 QRSD: ? 102 ?T: ?43 QT: ? 404 ? QTc: ?438 ? Interpretive Statements SINUS RHYTHM Compared to ECG 05/17/2020 15:25:58 Myocardial infarct finding no longer present T-wave abnormality no longer present I reviewed the tracing and have either agreed or edited the findings in this report. Electronically Signed On 09-10-2020 15:13:10 EDT by VICKEY DAVID. Procedure Note Vickey David MD - 09/10/2020 [facility] Emergency Test Date: 2020-08-19 Pat Name: TARA YUN Department: ED Room: Gender: Female Quill Reamer: : 1960 Requested By: CHANDU Victoria Order Number: [id number] Reading MD: VICKEY DAVID Measurements Intervals [place] Rate: 70 P: 55 NJ: 157 QRS: 52 QRSD: 102 T: 43 QT: 404 QTc: 438 Interpretive Statements SINUS RHYTHM Compared to ECG 05/17/2020 15:25:58 Myocardial infarct finding no longer present T-wave abnormality no longer present I reviewed the tracing and have either agreed or edited the findings inthis report. Electronically Signed On 09-10-2020 15:13:10 EDT by VICKEY DAVID. Bobby Mathur MD CARDIAC ECG ORDERABLES Final Result [facility] EKG documented in this encounter Visit Diagnoses Not on filedocumented in this encounter Care Teams Rn Registry Relationship Specialty Start Date End Date Emigdio Veronica MD [address] [place] [phone] PCP - General Internal Medicine - Primary Care 05/22/20 02/21/24 documented as of this encounter
--- OUTSIDE RECORDS SUMMARY | 2024-11-22 17:22 | XMS_ITS | Encounter Summary ---
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 No / Unsure 06/19/2020 15:19 EDT documented as of this encounter Functional [...] End Date furosemide (LASIX) 40 mg tablet Take 2 Tabs by mouth daily. 60 Tab 06/21/2020 08/01/2020 documented in this encounter Progress Notes * Hi Reilly MD - 06/21/2020 1403 EDT Called by pharmacy over the weekend, they are reporting a glitch with the new furosemide script and need a new one which was provided. documented in this encounter Plan of Treatment Upcoming Encounters Date Type Department Care Team (Late st Contact Info) Description 01/04/2025 13:00 EST Office Visit [facility] Ophthalmology - [address] [phone] Gagandeep Rome MD [address] [place] [address] [address] [place] [phone] 02/11/2025 13:30 EDT Telemedicine [facility] Hematology & Oncology [address] [phone] Dana Padilla MD [address] [place] [address], [facility] [address] [place] [address] documented as of this encounter Visit Diagnoses Not on filedocumented in this encounter Discontinued Medications Medication Sig Discontinue Reason Start Date End Da te furosemide (LASIX) 40 mg tablet Take 2 Tabs by mouth daily. Reorder 06/19/2020 06/21/2020 documented as of this encounter Care Teams Meat Grading Machine Operator Relationship Specialty Start Date End Date Emigdio Veronica MD [address] [place] [phone] PCP - General Internal Medicine - Primary Care 05/22/20 02/21/24 documented as of this encounter
--- OUTSIDE RECORDS SUMMARY | 2024-11-22 17:22 | XMS_ITS | Encounter Summary ---
Author Organization [facility] Address [address] [place] [address] Care Team Providers Care Search Analyst Name Role Phone Emigdio Veronica MD Primary Care Provider + Reason for Visit * Reason Comments Telemedicine Phone Call Dizziness Edema Encounter Details Date Type Department Care Team (Late st Contact Info) Description 05/26/2020 10:00 EDT Telemedicine [facility] - [place] [address] [place] [address] Scottie Campuzano PA-C [address] [place] [phone] Edema of both legs (Primary Dx); 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 (HCC-CMS); Obesity, Class II, BMI 35-39.9; HUEY (obstructive sleep apnea); Dyspnea, unspecified type Social History Tobacco Use Types Packs/Day Years Used Date Smoking Tobacco: Former Cigarettes 0.3 20 S tarted: 05/22/2020 Smokeless Tobacco: Never Comments:cigarete every coup le of days Alcohol Use Standard Drinks/Week Comments No 0 (1 standard drink = 0.6 oz pur e alcohol) Overall Financial Resource Strain (CARDIA) Answe r Date Recorded How hard is it for you to pa y for the very basics like food, housing, medical care, and heating? Hard 05/22/2020 Hunger Vital Sign Answer Date Recorded Within [...] things needed for daily living? 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 No / Unsure 04/26/2020 0:07 EDT documented as of this encounter Functional [...] Progress Notes * Scottie Campuzano PA-C - 05/26/2020 1000 EDT Subjective: Patient ID: Tara Yun is an 59 y.o. female. Chief Complaint Patient presents with ??? Telemedicine Phone Call ??? Dizziness ??? Edema The concept of ???Telemedicine?? has been described [...] in patient???s medical or mental health care. HPI The patient complains of swelling in her legs over the weekend. She says that Tuesday and then Tuesday (yesterday) her legs became quite edematous. She denies being out in excessive heat. She says she has been in front of a fan and has been wearing a sweater. She says she has not been consuming much sodium at all. She did have some difficulty breathing this morning, but she felt that it might simply be anxiety. She did turn on her oxygen this morning and says that it seemed to make her feel a bit better. She denies chest pains. She has been somewhat lightheaded. Her blood pressure last week was quite low, at around 100/50. She does not check her blood pressure at home, though she does have a cuff. She felt slightly dyspneic this morning earlier. She says she thinks this feeling may have been caused by some anxiety. She has not had chest pains. No palpitations. Patient Active Problem List Diagnosis ??? Pancytopenia [...] ??? HUEY (obstructive sleep apnea) ??? Dyspnea No outpatient medications have been marked as taking for the 05/26/20 encounter (Telemedicine) with Scottie Campuzano PA-C. ROS - See HPI Objective: There were no vitals taken for this visit. Physical Exam Assessment / Plan: Encounter Diagnoses Name Primary? Edema of both legs Yes ??? 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 (HCC-CMS) ??? Obesity, Class II, BMI 35-39.9 ??? HUEY (obstructive sleep apnea) ??? Dyspnea, unspecified type The patient has new onset of which she calls severe lower extremity edema for 2 days. She had some slight dyspnea this morning which she thinks may have been related to anxiety. She feels fine now with respect to her breathing. Her symptoms do not suggest an emergent problem. She will likely need an office visit. She may needcompression stockings or knee-high socks. She is already on a low sodium diet she says I will discuss her case with Dr. Veronica and will advise her about a care plan after I speak with him This visit was conducted by telephone. I spent a total of 25 minutes in discussion with the patientas described in the progress note. Scottie Campuzano PA-C 05/26/2020 10:21 documented in this encounter Plan of Treatment Upcoming Encounters Date Type Department Care Team (Late st Contact Info) Description 01/04/2025 13:00 EST Office Visit [facility] Ophthalmology - [address] [phone] Gagandeep Rome MD [address] [place] [address], [address] [place] [phone] 02/11/2025 13:30 EDT Telemedicine [facility] Hematology & Oncology - [facility] [address], [place] [address] Dana Padilla MD [address] [facility], [address] [place] [phone] documented as of this encounter Visit Diagnoses Diagnosis Edema of both legs- Primary Edema 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 (HCC-CMS) Other chronic nonalcoholic liver disease Obesity, Class II, BMI 35-39.9 Obesity, unspecified HUEY (obstructive sleep apnea) Obstructive sleep apnea (adult) (pediatric) Dyspnea, unspecified type documented in this encounter Care Teams Search Analyst Relationship Specialty Start Date End Date Emigdio Veronica MD [address] [place] [phone] PCP - General Internal Medicine - Primary Care 05/22/20 02/21/24 documented as of this encounter
--- OUTSIDE RECORDS SUMMARY | 2024-11-22 17:22 | XMS_ITS | Encounter Summary ---
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 [...] Office Visit [facility] Ophthalmology [address] [phone] Gagandeep Rome MD [address] [place] [address], [address] [place] [phone] 02/11/2025 13:30 EDT Telemedicine [facility] [place] Hematology & Oncology - [address] [address] Dana Padilla MD [address] [facility], [address] [place] [phone] documented as of this encounter Visit Diagnoses Not on filedocumented in this encounter Care Teams Aircraft Load Controller Relationship Specialty Start Date End Date Emigdio Veronica MD [address] [place] [phone] PCP - General Internal Medicine - Primary Care 05/22/20 02/21/24 documented as of this encounter
--- OUTSIDE RECORDS SUMMARY | 2024-11-22 17:22 | XMS_ITS | Encounter Summary ---
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 Not on [...] 04/26/2020 7:00 DAVIDT Chao Saravia, RN * Do you have [...] Progress Notes * Emigdio Veronica MD - 06/24/2020 0930 EDT Free T4 written as add-on documented in this encounter Plan of Treatment Upcoming Encounters Date Type Department Care Team (Late st Contact Info) Description 01/04/2025 13:00 EST Office Visit [facility] Ophthalmology - [address] [phone] Gagandeep Rome MD [address] [place] [address] 5 [place] [phone] 02/11/2025 13:30 EDT Telemedicine [facility] Hematology & Oncology - [address] [phone] Dana Padilla MD [address] [place] [address], [facility] [address] [place] [phone] documented as of this encounter Visit Diagnoses Diagnosis Hypothyroidism, unspecified type- Primary documented in this encounter Care Teams House Officer Relationship Specialty Start Date End Date Emigdio Veronica MD [address] [place] [phone] PCP - General Internal Medicine - Primary Care 05/22/20 02/21/24 documented as of this encounter
--- OUTSIDE RECORDS SUMMARY | 2024-11-22 17:22 | XMS_ITS | Encounter Summary ---
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 21 Tab 08/01/2020 08/22/2020 documented in this encounter Miscellaneous Notes * Telephone Encounter - Hesham Jaime - 08/01/2020 0570 EDT Message received from pharmacy: Alternative Requested:PA REQUIRED; OR INSURANCE WILL COVER CYCLOBENZAPRINE,. OR TIZANIDINE. HESHAM JAIME RN 08/01/2020 16:01 documented in this encounter Plan of Treatment Upcoming Encounters Date Type Department Care Team (Late st Contact Info) Description 01/04/2025 13:00 EST Office Visit [facility] Ophthalmology - [address] [phone] Gagandeep Rome MD [address] [place] [address] 5 [place] [phone] 02/11/2025 13:30 EDT Telemedicine [facility] Hematology & Oncology [address] [phone] Dana Padilla MD [address] [place] [address], [facility] 2 [place] [phone] documented as of this encounter Visit Diagnoses Not on filedocumented in this encounter Discontinued Medications Medication Sig Discontinue Reason Start Date End Da te methocarbamoL (ROBAXIN) 500 mg tablet Take 1 Tab by mouth 2 times daily as needed for Muscle Spasms. 08/01/2020 08/01/2020 documented as of this encounter Care Teams Director Product Management Relationship Specialty Start Date End Date Emigdio Veronica MD [address] [place] [phone] PCP - General Internal Medicine - Primary Care 7/2/20 4/2/24 documented as of this encounter
--- OUTSIDE RECORDS SUMMARY | 2024-11-22 17:22 | XMS_ITS | Encounter Summary ---
Author Organization [facility] Address [address] [place] [address] Care Team Providers Care Naval Architect Specialist Name Role Phone Emigdio Veronica MD Primary Care Provider + Reason for Visit * Reason Comments Edema bilateral lower extr emity Back Problem would like a muscle relaxant Dizziness pt wondering if it's related to her low BP Encounter Details Date Type Department Care Team (Late st Contact Info) Description 08/01/2020 14:15 EDT Office Visit [facility] Adult Primary Care - [place] [address] [place] [address] Emigdio Veronica MD [address] [place] [phone] Cirrhosis of liver without ascites, unspecified hepatic cirrhosis type (HCC-CMS) (Primary Dx); Chronic midline thoracic back pain; Constipation, unspecified constipation type Social History Tobacco Use Types Packs/Day Years Used Date Smoking Tobacco: Some Days Cigarettes 0.8 35 Smokeless Tobacco: Never Tobacco Cessation:Counseling Given: No Comments:currently a few per week [...] 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 on file Not on file Not o n file documented as of this encounter Last Filed Vital Signs Vital Sign Reading Time Taken Comments Blood Pressure 94/50 08/01/2020 1422 EDT Pulse 72 08/01/2020 1422 EDT r Temperature 36.3 ??C (97.3 ??F) 08/01/2020 1422 EDT Respiratory Rate 16 08/01/2020 1422 EDT Oxygen Saturation - - Inhaled Oxygen Concentration - - Weight 89.4 kg (197 lb) 08/01/2020 1422 EDT Height - - Body Mass Index 34.08 05/22/2020 1507 EDT documented in this encounter Functional Status [...] of Assessment Author No 04/26/2020 7:00 Chao Yonug RN * Do you have difficulty dressing [...] Refills Last Filled Start Date End Date docusate sodium (COLACE) 100 mg capsule Take 1 Cap by mouth 2 times daily. 60 Cap 08/01/2020 09/01/2020 senna (SENOKOT) 8.6 mg tablet Take 1 Tab by mouth at bedtime. 30 Tab 08/01/2020 09/01/2020 spironolactone (ALDACTONE) 100 mg tablet Take 1 Tab by mouth daily. 90 Tab 3 08/01/2020 03/06/2021 furosemide (LASIX) 40 mg tablet Take 2 Tabs by mouth daily. 90 Tab 3 08/01/2020 12/12/2020 methocarbamoL (ROBAXIN) 500 mg tablet Take 1 Tab by mouth 2 times daily as needed for Muscle Spasms. 30 Tab 08/01/2020 08/01/2020 documented in this encounter Progress Notes * Emigdio Veronica MD - 08/01/2020 1415 EDT S: Tara Yun is a 60 y.o. female with PMHx of asthma, COPD, cirrhosis of the liver related toNASH, OSAwho presents with a CC: of follow-up for cirrhosis Today Tara presents for follow-up on her cirrhosis and edema management,. Since our last encounter in which we increased her diuretic regiment to 100 mg of spirolactone with 80 mg of lasix she haslost between 5-7 pounds and noted improvement in her baseline SOB as well as peripheral edema. She has also noted lower blood pressures to the 80s systolic and occasional dizziness however. We discussed reducing her lasix today which she is open towards. She would like to discuss management of her chronic lower back pain. She reports an acute flare up of her pain within the last few weeks. She states she usually uses lidocaine patches since she unable to take acetaminophen or ibuprofen due to her co-morbidities, but she reports the lidocaine patches have been ineffective to controlling her pain. She expresses interest in starting a muscle relaxant and we discussed that all of the typical muscle relaxants are cleared by the liver. Given her liver disease we would be limited in dosing them for her pain. She is open however to a referral to PT for further evaluation. Additionally she notes several constipation over the last two weeks. She has been taking BID miralax as well as 0.5 cups of lactulose to limited relief. She denies nausea, vomiting, urination changes or abdominal pain. She does feel more distended due to her constipation. ROS as above Medications and history reviewed. Current Outpatient Medications Medication ??? albuterol (ACCUNEB) 2.5 mg /3 mL (0.083 %) nebulizer solution ??? albuterol 90 mcg/actuation inhaler ??? cyclobenzaprine (FLEXERIL) 5 mg tablet ??? docusate sodium (COLACE) 100 mg [...] ??? tamsulosin (FLOMAX) 0.4 mg capsule ??? traZODone (DESYREL) 50 mg tablet ??? umeclidinium (INCRUSE ELLIPTA) 62.5 mcg/actuation No current facility-administered medications for this visit. Facility-Administered Medications Ordered in Other Visits Medication Route Frequency ??? albuterol (ACCUNEB) 2.5 mg /3 mL (0.083 %) nebulizer solution O: BP 94/50 (BP Cuff Location: Right arm, BP Patient Position: Sitting, BP Cuff Sizes: Adult, regular) Pulse 72 Comment: r Temp 36.3 ??C (97.3 ??F) (Temporal) Resp 16 Wt 89.4 kg (197 lb) BMI 34.08 kg/m?? Gen: Well appearing middle aged female, NAD HEENT: EOMI, PERRL, conjunctiva pink, no scleral injection/ icterus CV: RRR, no murmurs, rubs or gallops Pulm: CTAB, good air movement, no wheezes, rales, or rhonchi Abd: +BS, soft, NT, ND, no hepatosplenomegaly Extrem: no edema, warm and well perfused Skin: No rashes or erythema, intact Recent Labs/Imaging: Reviewed in Epic A and P: Tara was seen today for edema, back problem and dizziness. Diagnoses and all orders for this visit: Cirrhosis of liver without ascites, unspecified hepatic cirrhosis type (HCC- CMS): Improvement in breathing and peripheral edema with previous diuretic regiment, however in setting of soft blood pressures with dizziness will reduce dosage of lasix today - Will reduce lasix down to 40 mg daily, refill provided - Encouraged patient to continue spirolactone 100 mg daily, refill provided Chronic midline thoracic back pain: - AMB CONS/FOLLOW UP PHYSICAL THERAPY; Future - Will trial low dose flexeril at 5 mg QHS Constipation, unspecified constipation type - Advised continuing miralax BID - Will add colace 100 mg BID, senna 8.6 mg at bedtime - Advised patient to increase daily lactulose to one cup - Encouraged the patient to call back if she has not had a bowel movement by early next week. If sowould encourage either suppositories or magnesium citrate Health Care Maintenance Health Maintenance Topic Date Due ??? ASTHMA ACTION PLAN 1960 ??? Social Determinants of Health (SDOH) 1960 ??? LUNG FUNCTION TEST (SPIROMETRY) 1960 ??? COPD ACTION PLAN 1960 ??? LIPID PROFILE SCREENING (CHOLESTEROL) 1963 ??? ADVANCE DIRECTIVE 1978 ??? PREVENTIVE CARE VISIT 1978 ??? CERVICAL CANCER SCREENING 1981 ??? BREAST CANCER SCREENING 2010 ??? Colorectal Cancer Screening 2010 ??? SHINGLES IMMUNIZATION (2 of 2) 10/29/2019 ??? INFLUENZA IMMUNIZATION (ADULT) (1) 08/21/2020 ??? BEHAVIORAL HEALTH SCREEN 05/22/2021 ??? TETANUS (ADULT) IMMUNIZATION 03/17/2029 ??? HIV SCREENING Completed ??? HEPATITIS C SCREEN Completed ??? PNEUMOCOCCAL IMMUNIZATION Completed ??? PERTUSSIS (ADULT) IMMUNIZATION Discontinued F/u: Return in about 3 months (around 10/31/2020) for f30. Emigdio Veronica MD 08/03/2020 12:53 documented in this encounter Plan of Treatment Upcoming Encounters Date Type Department Care Team (Late st Contact Info) Description 01/04/2025 13:00 EST Office Visit [facility] Ophthalmology - [address] [phone] Gagandeep Rome MD [address] [place] [address] 5 [place] [phone] 02/11/2025 13:30 EDT Telemedicine [facility] Hematology & Oncology [address] [phone] Dana Padilla MD [address] [place] [address], [facility] 2 [place] [phone] documented as of this encounter Visit Diagnoses Diagnosis Cirrhosis of liver without ascites, unspecified hepatic cirrhosis type (HCC-CMS)- Primary Chronic midline thoracic back pain Constipation, unspecified constipation type documented in this encounter Discontinued Medications Medication Sig Discontinue Reason Start Date End Da te furosemide (LASIX) 40 mg tablet Take 2 Tabs by mouth daily. Reorder 06/21/2020 08/01/2020 spironolactone (ALDACTONE) 100 mg tablet Take 1 Tab by mouth daily. Reorder 06/23/2020 08/01/2020 documented as of this encounter Care Teams Naval Architect Specialist Relationship Specialty Start Date End Date Emigdio Veronica MD [address] [place] [phone] PCP - General Internal Medicine - Primary Care 05/22/20 02/21/24 documented as of this encounter
--- OUTSIDE RECORDS SUMMARY | 2024-11-22 17:22 | XMS_ITS | Encounter Summary ---
Author Organization [facility] Address [address] [place] [address] Care Team Providers Care Informatica Developer Name Role Phone Alma Farfan MD Primary Care Provider [phone] Reason for Visit * Reason Comments Shortness of Breath bilateral lower extr emity swelling Encounter Details Date Type Department Care Team (Latest Contact Info) Description 05/17/2020 15:12 EDT - 05/17/2020 15:57 EDT Hospital Encounter [facility] - [address] [address] Ilya Cai MD [address] [place] [phone] Leg swelling Discharge Disposition: Left without being seen Social History Tobacco Use Types Packs/Day Years Used Date Smoking Tobacco: Every Day Cigarettes 0.3 20 Smokeless Tobacco: Never Comments:cigarete every coup le of days Alcohol Use Standard Drinks/Week Comments No 0 (1 standard drink = 0.6 oz pur e alcohol) Comments No Sex and Gender Information Value Date Recorded Sex Assigned at Female 03/01/2024 9:25 EDT Legal Sex Female 18:05 EST Gender Identity Female 10/03/2019 16:15 EST Sexual Orientation Not on file COVID-19 Exposure Response Date Recorded In the last month, have you been in contact with someone who was confirmed or suspected to have Coronavirus / COVID-19? No / Unsure 04/26/2020 0:07 EDT documented as of this encounter Last Filed Vital Signs Vital Sign Reading Time Taken Comments Blood Pressure 105/51 05/17/2020 1510 EDT Pulse 76 05/17/2020 1510 EDT Temperature 36.3 ??C (97.4 ??F) 05/17/2020 1510 EDT Respiratory Rate 18 05/17/2020 1551 EDT Oxygen Saturation 99% 05/17/2020 1510 EDT Inhaled Oxygen Concentration - - Weight [...] 04/26/2020 7:00 DAVIDT Chao Saravia RN documented as of this encounter Mental Status * Because of a physical, mental, or emotional condition, do you have serious difficulty concentrating, remembering, or making decisions? (5 years old or older) Answer Entry Date Author No 04/26/2020 7:00 Chao Young RN documented in this encounter Medications at Time of Discharge albuterol (ACCUNEB) 2.5 mg /3 mL (0.083 [...] Take 1 Tab by mouth daily for 30 days. 30 Tab 04/29/2020 0 hydrOXYzine (ATARAX) 25 mg tablet Take 1 Tab by mouth at bedtime as needed for up to 30 days for Anxiety. 30 Tab 04/28/2020 0 lactulose (CHRONULAC) 20 gram/30 mL solution Take 30 mL by mouth 2 times daily as needed for up to 30 days for Other (constipation). 1 Bottle 04/28/2020 0 LEVOTHYROXINE SODIUM (LEVOTHYROXINE ORAL) Take 25 mcg by mouth daily. Unknown dose 0 ondansetron (ZOFRAN) 4 mg tablet Take 4 mg by mouth 2 times daily as needed. 11/07/2019 0 polyethylene glycol 3350 (MIRALAX) 17 gram packet Take 17 g by mouth daily for 30 days. 30 Packet 04/28/2020 0 sertraline (ZOLOFT) 25 mg tablet Take 1 Tab by mouth daily for 30 days. 30 Tab 04/29/2020 0 spironolactone (ALDACTONE) 25 mg tablet Take 50 mg by mouth daily. 0 SYMBICORT 160-4.5 mcg/actuation HFA aerosol inhaler inhaler Inhale 2 Puffs as directed daily. 10/05/2019 0 tamsulosin (FLOMAX) 0.4 mg capsule Take 1 Cap by mouth daily. 30 Cap 11 02/19/2020 1 documented as of this encounter Discharge Disposition Disposition Code Departure Means Destination Left without being seen documented in this encounter ED Notes * Ilya Cai MD - 05/17/2020 0142 EDT Patient presented to clinic with bilateral swollen feet and baseline symptoms of shortness of breath. Apparently she had been seen in clinic yesterday by her primary care provider and plan was to double furosemide but she had not received a prescription, so she presents here today. Nursing staff here clarified this with nursing at her PCPs office. A new prescription was going to be sent to her pharmacy by PCP. Option was given to the patient to have further evaluation here versus following established plan with her primary care provider. The patient opts to follow her plan with her primary care provider. I did not evaluate her personally, as she had decided to leave clinic. EKG done here given mention of dyspnea initially, was unremarkable. I did see her ambulate into the clinic and to the exam room without difficulty. Otherwise, she is to follow-up with her primary care provider's office. She may always return here as needed. Signed: Ilya Cai MD 05/17/2020 16:15 * Beth Faust RN - 05/17/2020 1556 EDT Pt choosing to leave without seeing a provider. She is in NAD, talking full sentences with non-labored breathing * Beth Faust RN - 05/17/2020 1551 EDT Clerk Funeral Detail spoke with pt, and informed her that the personnel analyst MD from her PCP's office stated that the Plan on Care from yesterday's visit was to increase Lasix to 20mg BID and that she has 3 refills with the pharmacy and that the personnel analyst MD is going to send a revised Rx to the pharmacy. 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 She will f/u with PCP as planned * Bekah Ayala RN - 05/17/2020 1548 EDT Phone call from Ivy Gracia NP at [facility]. Discussed patient was expecting script for lasix to go to pharmacy and it wasn't there. According to HARSH Gracia plan was to increase lasix from 20 mg QD to 20 mgBID. YOUTH CORRECTIONS OFFICER Basil said that she would send a revised prescription to her pharmacy and the plan is for patient to follow up with her pcp. All of this communicated to patient nurse Beth Faust RN and provider Stephanie Cai MD. * Bekah Ayala RN - 05/17/[address] Cai, message out to get call back for personnel analyst provider of [facility]. Patient states that she saw Dr. Camacho yesterday. Now awaiting call back. * Scot Lewis - 05/17/2020 1527 EDT 12 Lead EKG Performed by SCOT LEWIS MA and shown to Iyla Cai MD. * Beth Faust RN - 05/17/2020 1527 EDT Pt presents with c/o BLE edema. States she saw PCP yesterday and they were going to double my Lasix, but they never sent the prescription to the pharmacy. 2-3+ pitting edema noted to bilateral feet and BLE. Pt states the pain is bad. Endorses mild SOB which is normal for her baseline due to COPD. Denies CP or hx of DVT. Was hospitalized on 04/25/20 for COPD exacerbation documented in this encounter Plan of Treatment Upcoming Encounters Date Type Department Care Team (Late st Contact Info) Description 01/04/2025 13:00 EST Office Visit [facility] Ophthalmology - [facility] [address] [place] [address] Gagandeep Rome MD [address] [facility], [address] [place] [phone] 02/11/2025 13:30 EDT Telemedicine [facility] Hematology & Oncology - [facility] [address] [place] [address] Dana Padilla MD 111 [facility], [facility] [address] [place] [phone] documented as of this encounter Procedures Procedure Name Priority Date/Time Associated Diagnosis Comments ECG REPORT - SCANNED 05/17/2020 16:18 EDT EKG 12-LEAD STAT 05/17/2020 15:25 EDT documented in this encounter Results * ECG REPORT - SCANNED (05/17/2020 16:18 EDT) 05/17/2020 16:1 8 EDT us Scan 2 Interrelated Special Education Teacher PROCEDURE/MINOR SURGICAL OR DERABLES Final Result * EKG 12-LEAD (05/17/2020 15:25 EDT) 05/17/2020 15:2 5 EDT Narrative [facility] EKG - 05/17/2020 16:13 EDT ? PC Site ? Test Date: ?2020-05-17 Pat Name: ? PHYLISS BOOTHE ?Department: ?? [facility] ? Room: ? 14 Gender: ? Female ? Arson Investigator: ?? : ?1960 ? Requested By: LIYAH Irizarry Order Number: [id number] ? Reading MD: ?? ILYA CAI MD ? Measurements Intervals ?[place] ? Rate: ? 70 ? P: ?55 SD: ? 159 ?QRS: ?56 QRSD: ? 100 ?T: ?29 QT: ? 408 ? QTc: ?441 ? Interpretive Statements SINUS RHYTHM Automated Interpretation. ??Provider Interpretation to follow. Compared to ECG 23:48:33 Myocardial infarct finding no longer present Normal sinus rhythm. ??No pathologic ST or T wave changes. I reviewed the tracing and have either agreed or edited the findings in this report. Electronically Signed On 05-17-2020 16:13:49 EDT by ILYA CAI MD. Procedure Note Ilya Cai MD - 05/17/2020 PC Site Test Date: 2020-05-17 Pat Name: TARA BOOTHE Department: [facility] Room: 14 Gender: Female Arson Investigator: : 1960 Requested By: LIYAH Irizarry Order Number: [id number] Reading MD: ILYA CAI MD Measurements Intervals [place] Rate: 70 P: 55 SD: 159 QRS: 56 QRSD: 100 T: 29 QT: 408 QTc: 441 Interpretive Statements SINUS RHYTHM Automated Interpretation. Provider Interpretation to follow. Compared to ECG 23:48:33 Myocardial infarct finding no longer present Normal sinus rhythm. No pathologic ST or T wave changes. I reviewed the tracing and have either agreed or edited the findings inthis report. Electronically Signed On 05-17-2020 16:13:49 EDT by ILYA HAWKINS. us Fausto Oropeza MD CARDIAC ECG ORDERABLES Final Res ult [facility] EKG documented in this encounter Visit Diagnoses Diagnosis Leg swelling Swelling of limb documented in this encounter Care Teams Informatica Developer Relationship Specialty Start Date End Date Alma Farfan MD PCP - General 03/14/19 05/21/20 documented as of this encounter
--- OUTSIDE RECORDS SUMMARY | 2024-11-22 17:22 | XMS_ITS | Encounter Summary ---
Author Organization [facility] Address [address] [place] [address] Care Team Providers Care Masonry Instructor Name Role Phone Emigdio Veronica MD Primary Care Provider + Reason for Visit * Reason Comments New Patient Visit Other bhs done ( PHQ 2 sco re of 1 ); sdoh-pos for food security Encounter Details Date Type Department Care Team (Late st Contact Info) Description 05/22/2020 15:00 EDT Office Visit [facility] - [place] [address] [place] [address] Emigdio Veronica MD [address] [place] [phone] Bilateral lower extremity edema (Primary Dx); 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 (HCC-CMS); HUEY (obstructive sleep apnea); Shortness of breath; Hypersplenism syndrome; Other specified hypothyroidism; Hematuria, unspecified type; Healthcare maintenance Social History Tobacco Use Types Packs/Day Years Used Date Smoking Tobacco: Every Day Cigarettes 0.3 20 Smokeless Tobacco: Never Tobacco Cessation:Ready to Q uit: Yes; Counseling Given: Yes Comments:cigarete every couple of days Alcohol Use Standard Drinks/Week Comments [...] 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 No / Unsure 04/26/2020 0:07 EDT documented as of this encounter Last Filed Vital Signs Vital Sign Reading Time Taken Comments Blood Pressure 98/58 05/22/2020 1507 EDT Pulse 84 05/22/2020 1507 EDT r Temperature 36.2 ??C (97.1 ??F) 05/22/2020 1507 EDT Respiratory Rate 16 05/22/2020 1507 EDT Oxygen Saturation - - Inhaled Oxygen Concentration - - Weight 88.5 kg (195 lb) 05/22/2020 1507 EDT Height 161.9 cm (5' 3.75) 05/22/2020 1507 EDT Body Mass Index 33.73 05/22/2020 1507 EDT documented in this encounter [...] Instructions * Patient Instructions* Ashley Weems - 05/22/2020 15:00 EDT Quitting smoking Stopping smoking is [...] with a trained counselor. Tobacco Counseling in [facility] offers free counseling services to residents who are ready to cut back or quit using tobacco. Services include: phone coaching (9-944-ZSFK-NOW), online tools and support for those who would like to make changes on their own (www.EPS.Mocavo), as well as in-person group workshops. Free nicotine replacement therapy is available through all of these resources. To learn more about your options visit www.EPS.org or call 6-919-SQHT-NOW ( ). To speak with an in-person tobacco counselor in [facility] call, [phone]. [place] Resident, please visit: https://www.idealista.com.[employer] [facility]/ I hope you quit smoking. I think it's the best thing you can do for your health. Please call our office if you have any questions. documented in this encounter Ordered Prescriptions Prescription Sig Dispense Quantity Refills Last Filled Start Date End Date furosemide (LASIX) 40 mg tablet Take 1 Tab by mouth daily. 90 Tab 3 05/22/2020 06/19/2020 documented in this encounter Progress Notes * Emigdio Veronica MD - 05/22/2020 1500 EDT New Patient Visit Service Date: 05/24/2020 Patient Profile: Tara Yun is a 59 y.o. female with significant history of Chief Complaint: Multiple issues HPI: Today Tara Yun presents for a NPV. She reports multiple acute complaints she would like to address however. 1. She is requesting a refill of her lasix. She confirms a history of QUIROZ cirrhosis with worseningof her related lower extremity edema. She reports several recent presentations To and the ED forSOB and failure to secure refills for her lasix reportedly due to difficulties with her previous PCP office. She states she has recently started taking lasix at 40 mg daily for the last week. She is not currently being followed by hepatology. She was previously established at [facility] hepatology, but terminated her care there. She is not currently connected with a transplant team either. She hasseen [facility] hepatology once a few years back. 2. She reports she has been told that she has sleep apnea and needs a sleep study. She is currentlyon nocturia O2 that was started following one of her hospital admissions, but notices little improvement in her sleep or energy level. We discussed the status of [facility]'s sleep center that is not scheduling new patients or sleep studies at this time. Open to trying to get a referral to the private [place] sleep center. 3. SOB. She is concerned about her continued exacerbations of her asthma and COPD. She confirms that she recently was started on symbicort and is still smoking. We discussed that quitting smoking would be the next most meaningful intervention in improving her breathing. We discussed tobacco cessation assistance options, but she states she would like to quit via cold turkey. She denies any chest pain, presyncope or palpitations, but confirms wheezing and cough. Together we briefly reviewed her past medical history due to time constraints. Pancytopenia with hypersplenism: Following with Dr. Paige in [facility] hematology. No acute complaints. Hypothyroidism: On synthroid 25 mcg, last TSH was notably elevated, but it was drawn during an acute hospitalization. Open to getting a repeat check in the future History of hematuria: Unclear etiology, following with Dr. Ortez in [facility] urology. Currently on tamsulosin. Together we briefly reviewed her health maintenance due to time constraints: Diet: Varied proteins, some vegetables Exercise: Nothing dedicated this time due to SOB S/p hysterectomy with removal of her cervix so she denies needing any more pap smears. Due for mammogram Believes she has had a colonoscopy in the last few years via [facility]. HM: Diet: veggies, Exercise; walking , gardem Review of Systems 10 point review of systems obtained with pertinent positive and negative items as listed above in HPI [facility] Surgical History Past Medical History: Diagnosis Date ??? [...] TONSILLECTOMY ??? WRIST SURGERY Right after fracture FMH Social History Family History Problem Relation Age of Onset ??? Cancer Maternal Grandmother skin ??? Diabetes Mother ??? Coronary Artery Disease Father ??? Clotting Disorder Father ??? Diabetes Brother Social History Socioeconomic History ??? Marital status: Single Spouse name: None ??? Number of children: 3 ??? Years of education: None ??? Highest education level: None Occupational History ??? 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 Financial resource strain: Hard ??? Food insecurity: Worry: Sometimes true Inability: Sometimes true ??? Transportation needs: Medical: No Non-medical: No Tobacco Use ??? Smoking status: Current Every Day Smoker Packs/day: 0.25 Years: 20.00 Pack years: 5.00 ??? Smokeless tobacco: Never Used ??? Tobacco comment: cigarete every couple of days Substance and Sexual Activity ??? Alcohol use: No Alcohol/week: 0.0 standard drinks ??? Drug use: Not Currently Types: Marijuana ??? Sexual activity: Yes Partners: Male control/protection: Surgical Lifestyle ??? Physical activity: Days per week: None Minutes per session: None ??? Stress: None Relationships ??? Social connections: Talks on phone: None Gets together: None Attends episcopalian service: None Active member of club or organization: None Attends meetings of clubs or organizations: None Relationship status: None ??? Intimate partner violence: Fear of current or ex partner: None Emotionally abused: None Physically abused: None Forced sexual activity: None Other Topics Concern ??? None Social History Narrative ??? None Current Medications: Current Outpatient Medications: albuterol (ACCUNEB) 2.5 mg /3 mL (0.083 %) nebulizer solution albuterol 90 mcg/actuation inhaler ERGOCALCIFEROL, VITAMIN D2, (VITAMIN D ORAL) ferrous gluconate (FERGON) 324 mg (38 mg iron) tablet furosemide (LASIX) 40 mg tablet hydrOXYzine (ATARAX) 25 mg tablet lactulose (CHRONULAC) 20 gram/30 mL solution LEVOTHYROXINE SODIUM (LEVOTHYROXINE ORAL) ondansetron (ZOFRAN) 4 mg tablet polyethylene glycol 3350 (MIRALAX) 17 gram packet sertraline (ZOLOFT) 25 mg tablet spironolactone (ALDACTONE) 25 mg tablet SYMBICORT 160-4.5 mcg/actuation HFA aerosol inhaler inhaler tamsulosin (FLOMAX) 0.4 mg capsule No current facility-administered medications for this visit. Facility-Administered Medications Ordered in Other Visits: albuterol (ACCUNEB) 2.5 mg /3 mL (0.083 %) nebulizer solution Allergies include: Morphine; Sulfa (sulfonamide antibiotics); Tylenol [acetaminophen]; Aspirin; Injectafer [ferric carboxymaltose]; Lyrica [pregabalin]; and Reglan [metoclopramide hcl] Immunization History: Immunization History Administered Date(s) Administered ??? Historical Influenza Vaccine, Unspecified 09/24/2014 ??? Historical Pneumococcal Vaccine, Unspecified 09/24/2014 ??? Influenza (split) 08/05/2016 ??? Influenza Vaccine MDCK Quad (FLUCELVAX) PF 0.5 ml IM (4 yrs+) 08/21/2019 ? ? Pneumococcal Polysaccharide (PPSV23) Vaccine (PNEUMOVAX-23) =>2YO SQ/IM 07/18/2015 ??? Shingrix (Zoster Vaccine, Recombinant) IM 09/03/2019 ? ? Td (Adult) 2 Lf Vaccine =>7yo IM 03/17/2019 Physical Exam: BP 98/58 (BP Cuff Location: Left arm, BP Patient Position: Sitting, BP Cuff Sizes: Adult, regular) Pulse 84 Comment: r Temp 36.2 ??C (97.1 ??F) (Tympanic) Resp 16 Ht 161.9 cm (63.75) Wt 88.5 kg (195 lb) BMI 33.73 kg/m?? Gen: NAD, alert, cooperative, pleasant. Speaking in full sentences HEENT: Membranes WNL, NCAT. Neck: Cervical/supraclavicular LAD negative, thyroid exam within normal limits CV: nml S1/S2, RRR, no murmurs, gallops or rubs. No carotid bruits. Resp: Diminished breath sounds bilaterally in posterior lower lung godwin Abd: soft, NABS, mildly distended, hepatomegaly and splenomegaly appreciated : Deferred Extr: No noted lower extremity edema. Peripheral pulses 2+ at wrist, DP/PT. Neuro: AO x 3. CN III-IX intact grossly. PERRL, EOMI. Musk: Normal muscle tone and bulk, gait within normal limits, full ROM of spine Skin: No rashes, erythema or ecchymoses, intact . Recent Labs/Imaging were reviewed in [facility]. Assessment/Plan Tara Yun is a 59 y.o. female with significant history of QUIROZ cirrhosis, hypersplenism, COPD, tobacco use, hematuria, HUEY who presents today to establish new patient care Tara was seen today for new patient visit and other. Diagnoses and all orders for this visit: Bilateral lower extremity edema: Related to QUIROZ cirrhosis, venous insufficiency - Will refill lasix at 40 mg daily - Encouraged compliance with spirolactone at 50 mg daily. - Will follow-up in one month, if dyspnea and lower extremity edema do not improve would have a lowthreshold to increase spirolactone to 100 mg daily in line with cirrhosis diuretic recommendations 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 (HCC-[facility]): Not decompensated at this time - Encouraged compliance with lasix and spirolactone as above - Will follow-up more at next visit. Patient should ideally be on non-selective beta warren for prevention of portal hypertension HUEY (obstructive sleep apnea): Reportedly diagnosed during previous admission to [facility] this year. Still needs sleep study for CPAP approval - Will have patient reach out to [place] sleep center, will provide a referral if needed. Shortness of breath: Multifactorial. Related to ongoing tobacco use and history of COPD and asthma - Encouraged compliance with Symbicort and rescue albuterol -heavily advised smoking cessation Hypersplenism syndrome: - Encouraged compliance with [facility] hematology follow-up Hypothyroidism: Elevated TSH on last check. - Will obtain repeat TSH prior to next encounter Hematuria, unspecified type - On tamsulosin, encouraged follow-up with urology as scheduled Healthcare maintenance - Will attempt to secure outside records from previous [facility] Follow-up in one month for cirrhosis, lower extremity edema and tobacco cessation 05/24/2020 Emigdio Veronica MD Adult Primary Care - [place] Pager #[phone] documented in this encounter Plan of Treatment Upcoming Encounters Date Type Department Care Team (Late st Contact Info) Description 01/04/2025 13:00 EST Office Visit [facility] Ophthalmology - [address] [phone] Gagandeep Rome MD [address] [place] [address], [address] [place] [phone] 02/11/2025 13:30 EDT Telemedicine [facility] Hematology & Oncology - [address] [phone] Dana Padilla MD [address] [place] [address], [facility] [address] [place] [phone] documented as of this encounter Results * (ABNORMAL) TSH (06/05/2020 15:02 EDT) TSH 5.51(H) 0.47 - 4.68 uIU/mL 06/05/2020 16:50 EDT [facility] Blood VENOUS BLOOD / Unknown Venipuncture / Unknown 06/05/2020 15:02 EDT 06/05/2020 15:02 EDT Narrative [facility] - 06/05/2020 16:50 EDT The results of this assay can be falsely lowered due to the consumption of Biotin. us Emigdio Veronica MD CHEMISTRY & BLOOD GAS OR DERABLES Final Result [facility] [address] [place] [address] documented in this encounter Visit Diagnoses Diagnosis Bilateral lower extremity edema- Primary Edema 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 (HCC-CMS) Other chronic nonalcoholic liver disease HUEY (obstructive sleep apnea) Obstructive sleep apnea (adult) (pediatric) Shortness of breath Hypersplenism syndrome Hypersplenism Other specified hypothyroidism Hematuria, unspecified type Healthcare maintenance Routine general medical examination at a health care facility documented in this encounter Discontinued Medications Medication Sig Discontinue Reason Start Date End Da te furosemide (LASIX) 20 mg tablet Take 1 Tab by mouth daily for 30 days. 04/29/2020 05/22/2020 documented as of this encounter Historical Medications * This list may reflect changes made after this encounter. albuterol (ACCUNEB) 2.5 mg /3 mL (0.083 %) nebulizer solution USE 1 VIAL VIA NEBULIZER 4 TIMES A DAY NEEDED 05/07/2020 1 added in this encounter Care Teams Masonry Instructor Relationship Specialty Start Date End Date Emigdio Veronica MD [address] [place] [phone] PCP - General Internal Medicine - Primary Care 05/22/20 02/21/24 documented as of this encounter
--- OUTSIDE RECORDS SUMMARY | 2024-11-22 17:22 | XMS_ITS | Encounter Summary ---
Author Organization [facility] Address [address] [place] [address] Care Team Providers Care Hacksaw Inspector Name Role Phone Emigdio Veronica MD Primary Care Provider + Reason for Visit * Reason Comments Cirrhosis Leg Swelling bilateral Nicotine Dependence Medication Management spironolactone Encounter Details Date Type Department Care Team (Late st Contact Info) Description 06/23/2020 15:00 EDT Office Visit [facility] Adult Primary Care - [place] [address] [place] [address] Emigdio Veronica MD [address] [place] [address] Other cirrhosis of liver (HCC-CMS) (Primary Dx); Shortness of breath; Bilateral lower extremity edema Social History Tobacco [...] Job 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 No / Unsure 06/19/2020 15:19 EDT documented as of this encounter Last Filed Vital Signs Vital Sign Reading Time Taken Comments Blood Pressure 88/52 06/23/2020 1455 EDT Pulse 68 06/23/2020 1455 EDT r Temperature 36.9 ??C (98.4 ??F) 06/23/2020 1455 EDT Respiratory Rate 16 06/23/2020 1455 EDT Oxygen Saturation - - Inhaled Oxygen Concentration - - Weight 93 kg (205 lb) 06/23/2020 1455 EDT Height - - Body Mass Index 35.46 05/22/2020 1507 EDT documented in this encounter [...] Instructions * Patient Instructions* Ashley Weems - 06/23/2020 15:00 EDT Quitting smoking Stopping smoking is [...] with a trained counselor. Tobacco Counseling in [facility] offers free counseling services to residents who are ready to cut back or quit using tobacco. Services include: phone coaching (NOW), online tools and support for those who would like to make changes on their own (www.FilterSure), as well as in-person group workshops. Free nicotine replacement therapy is available through all of these resources. To learn more about your options visit www.Joosy.org or call 6-434-YJUJ-NOW ( ). To speak with an in-person tobacco counselor in [facility] call, [phone]. [place] Resident, please visit: [email or web address] I hope you quit smoking. I think it's the best thing you can do for your health. Please call our office if you have any questions. documented in this encounter Ordered Prescriptions Prescription Sig Dispense Quantity Refills Last Filled Start Date End Date traZODone (DESYREL) 50 mg tablet Take 1 Tab by mouth at bedtime. 60 Tab 06/23/2020 08/18/2020 spironolactone (ALDACTONE) 100 mg tablet Take 1 Tab by mouth daily. 60 Tab 06/23/2020 08/01/2020 documented in this encounter Progress Notes * Emigdio Veronica MD - 06/23/2020 1500 EDT S: Tara Yun is a 59 y.o. female with PMHx of asthma, COPD, cirrhosis of the liver related toNASH, HUEY who presents with a CC: of persistent and worsening SOB, orthopnea and lower extremity edema. Today Tara returns to clinic to follow-up on complaints of SOB, increased lower extremity edema and weight gain. She was first seen by this provider on 05/22/2020 for a NPV in which she noted these same concerns. She has a long standing diagnosis of QUIROZ cirrhosis and was diagnosed with volume overload related to that condition. Since our last encounter she has also established care with [facility] pulmonology who advised that her dyspnea is likely multifactorial and related to volume overload, OSAand her COPD. They helped referred to her to the [facility] for a future sleep study, addedspiriva to her Symbicort inhaler and finally increased her lasix to 80 mg daily. She states that over the last three days on lasix 80 mg she has not appreciated a significant decrease in her leg swelling or improvement with her breathing. She has not weighed herself regularly, but believes she is 30 pounds heavier then where she was over 6 months ago. She states her SOB is primarily with lying down at night or exerting herself. Her blood pressure was notably soft today in thehigh 80s. She states she has always had lower blood pressures and does occasionally get lightheadedif she stands up quickly. She does not believe this has occurred more frequently recently. She denies fevers, chills, sweats or chest pain. Patient also expresses an interest to get back on trazodone for insomnia. ROS as above Medications and history reviewed. O: BP (!) 88/52 (BP Cuff Location: Right arm, BP Patient Position: Sitting, BP Cuff Sizes: Adult, regular) Pulse 68 Comment: r Temp 36.9 ??C (98.4 ??F) (Tympanic) Resp 16 Wt 93 kg (205 lb) BMI35.46 kg/m?? Gen: chronically ill appearing middle aged female, NAD HEENT: EOMI, PERRL, oropharynx moist, conjunctiva pink, no scleral injection/ icterus CV: RRR, no murmurs, rubs or gallops Pulm: CTAB, good air movement, no wheezes, rales, or rhonchi Extrem: +2 pitting edema up to bilateral knees, warm and well perfused Skin: No rashes or erythema, intact Recent Labs/Imaging: Reviewed in Epic A and P: Tara was seen today for cirrhosis, leg swelling, nicotine dependence and medication management. Diagnoses and all orders for this visit: Shortness of breath, Bilateral lower extremity edema: Dyspnea is likely multifactorial as pulmonology documented, however undoubtfully volume overload is planning apart in her main complaints today. Will tread carefully in adjusting diuretics given patient's soft blood pressures - Will continue lasix at 80 mg daily - Will increase spirolactone to 100 mg daily today - Will have patient obtain daily weights and update the office on her complaints later this week - Assuming weights begin to trend down will have patient return to clinic in a month to reassess. - Given patient's hgh TSH on recent lab work will obtain rT4 to rule out hypothyroidism Insomnia - Atarax discontinued - traZODone (DESYREL) 50 mg tablet; Take 1 Tab by mouth at bedtime. F/u: Return in about 1 month (around 07/24/2020) for f30. Emigdio Veronica MD 06/24/2020 12:32 * Ashley Weems 06/23/2020 1500 EDT Left arm venipuncture I was supervised by dr. Veronica who was present and immediately available in the office suite. Ashley Weems 06/23/2020 16:16 documented in this encounter Plan of Treatment Upcoming Encounters Date Type Department Care Team (Late st Contact Info) Description 01/04/2025 13:00 EST Office Visit [facility] Ophthalmology - [address] [phone] Gagandeep Rome MD [address] [place] [address] 5 [place] [address] 02/11/2025 13:30 EDT Telemedicine [facility] Hematology & Oncology [address] [phone] Dana Padilla MD [address] [place] [address], [facility] 2 [place] [address] documented as of this encounter Procedures Procedure Name Priority Date/Time Associated Diagnosis Comments COMPREHENSIVE METABOLIC PANEL (CMP) Routine 06/23/2020 15:53 EDT Other cirrhosis of liver (HCC-CMS) documented in this encounter Results * (ABNORMAL) COMPREHENSIVE METABOLIC PANEL (CMP) (06/23/2020 15:53 EDT) Sodium 139 136 - 145 mEq/L 06/23/2020 19:00 EDT [facility] Potassium 4.4 3.5 - 5.0 mEq/L 06/23/2020 19:00 EDT [facility] Chloride 99 96 - 110 mEq/L 06/23/2020 19:00 EDT [facility] CO2 Total 34(H) 22 - 32 mEq/L 06/23/2020 19:00 EDT [facility] Glucose 88 70 - 100 mg/dL 06/23/2020 19:00 [facility] BUN 10 10 - 26 mg/dL 06/23/2020 19:00 [facility] Creatinine 0.96 0.52 - 1.04 mg/dL 06/23/2020 19:00 [facility] eGFR 65 >60 mL/min/1.7 3m2 06/23/2020 19:00 [facility] Comment:eGFR calculated lobito coppola CKD-EPI equation for non- Americans. Multiply eGFR by 1.16 for patients. Total Protein 6.1(L) 6.3 - 8.2 g/dL 06/23/2020 19:00 [facility] Albumin 3.4 3.4 - 4.9 g/dL 06/23/2020 19:00 [facility] Alkaline Phosphatase 82 38 - 126 U/L 06/23/2020 19:00 [facility] AST 26 15 - 46 U/L 06/23/2020 19:00 [facility] ALT 15 <35 U/L 06/23/2020 19:00 [facility] Bilirubin, Total 0.6 <1.4 mg/dL 06/23/20 20 19:00 [facility] Calcium 8.7 8.5 - 10.5 mg/dL 06/23/2020 19:00 [facility] Calculated Calcium 9.2 8.5 - 10.5 mg/dL 06/23/2020 19:00 [facility] Blood VENOUS BLOOD / Unknown Venipuncture / Unknown 06/23/2020 15:53 EDT 06/23/2020 15:53 EDT us Emigdio Veronica MD CHEMISTRY & BLOOD GAS OR DERABLES Final Result [facility] [address] [place] [address] documented in this encounter Visit Diagnoses Diagnosis Other cirrhosis of liver (HCC-CMS)- Primary Shortness of breath Bilateral lower extremity edema Edema documented in this encounter Discontinued Medications Medication Sig Discontinue Reason Start Date End Da te spironolactone (ALDACTONE) 25 mg tablet Take 50 mg by mouth daily. Dose adjustment 06/23/2020 diclofenac sodium (VOLTAREN) 1 % gel Apply a thin film (2.5 g) to areas of pain once to twice daily. Side effects 05/29/2020 06/23/2020 HYDROXYZINE HCL ORAL Take by mouth. Alternate therapy 0 documented as of this encounter Care Teams Hacksaw Inspector Relationship Specialty Start Date End Date Emigdio Veronica MD [address] [place] [address] PCP - General Internal Medicine - Primary Care 05/22/20 02/21/24 documented as of this encounter
--- OUTSIDE RECORDS SUMMARY | 2024-11-22 17:22 | XMS_ITS | Encounter Summary ---
Author Organization [facility] Address [address] [place] [address] Care Team Providers Care Relish Maker Name Role Phone Emigdio Veronica MD Primary Care Provider + Starr Paige MD Unavailable [phone] Dana Padilla MD Unavailable Encounter Details Date Type Department Care Team (Late st Contact Info) Description 07/15/[address] 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 documented in this encounter Plan of Treatment Upcoming Encounters Date Type Department Care Team (Late st Contact Info) Description 01/04/2025 13:00 EST Office Visit [facility] Ophthalmology - [address] [phone] Gagandeep Rome MD [address] [place] [address], [facility] [address] [place] [phone] 02/11/2025 13:30 EDT Telemedicine [facility] Hematology & Oncology - [address] [phone] Dana Padilla MD [address] [place] [address], [facility] [address] [place] [phone] documented as of this encounter Visit Diagnoses Not on filedocumented in this encounter Additional Health Concerns Infection Onset Date Last Indicated Resolved Time R/O COVID-19 08/25/2020 08/25/2020 08/30/2020 22:1 5 EDT R/O COVID-19 Comment:Covid negative 04/13/2021 04/13/2021 04/13/2021 17:49 EDT R/O COVID-19 06/12/2021 06/12/2021 06/12/2021 23:4 3 EDT R/O COVID-19 07/10/2021 07/14/2021 07/14/2021 23:3 2 EDT R/O COVID-19 10/08/2021 10/08/2021 10/08/2021 18:1 8 EST R/O COVID-19 12/14/2021 12/14/2021 12/19/2021 22:1 5 EST documented as of this encounter Care Teams Relish Maker Relationship Specialty Start Date End Date Emigdio Veronica MD [address] [place] [address] PCP - General Internal Medicine - Primary Care 05/22/20 02/21/24 Starr Paige MD [address] [place] [phone] Hematology 10/08/21 06/09/22 Dana Padilla MD [address] [place] [address] 2 [place] [address] Hematology 01/13/22 06/09/22 documented as of this encounter
--- OUTSIDE RECORDS SUMMARY | 2024-11-22 17:22 | XMS_ITS | Encounter Summary ---
Author Organization [facility] Address [address] [place] [address] Care Team Providers Care Mdm Developer Name Role Phone Emigdio Veronica MD Primary Care Provider + Encounter Details Date Type Department Care Team (Late st Contact Info) Description 06/20/[address] 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 1 Inhaler 11 06/20/2020 1 documented in this encounter Progress Notes * Maria Majano RT - 06/20/2020 0924 EDT Requested Prescriptions Signed Prescriptions Disp Refills ??? SYMBICORT 160-4.5 mcg/actuation HFA aerosol inhaler inhaler 1 Inhaler 11 Sig: Inhale 2 Puffs as directed daily. documented in this encounter Plan of Treatment Upcoming Encounters Date Type Department Care Team (Late st Contact Info) Description 01/04/2025 13:[address] [facility] Ophthalmology - [address] [phone] Gagandeep Rome MD [address] [place] [address] 5 [place] [phone] 02/11/2025 13:30 EDT Telemedicine [facility] Hematology & Oncology [address] [phone] Dana Padilla MD [address] [place] [address] 2 [place] [phone] documented as of this encounter Visit Diagnoses Diagnosis COPD with asthma ([facility])- Primary Chronic obstructive asthma, unspecified documented in this encounter Discontinued Medications Medication Sig Discontinue Reason Start Date End Da te SYMBICORT 160-4.5 mcg/actuation HFA aerosol inhaler inhaler Inhale 2 Puffs as directed daily. Reorder 10/05/2019 06/20/2020 documented as of this encounter Care Teams Mdm Developer Relationship Specialty Start Date End Date Emigdio Veronica MD [address] [place] [phone] PCP - General Internal Medicine - Primary Care 05/22/20 02/21/24 documented as of this encounter
--- OUTSIDE RECORDS SUMMARY | 2024-11-22 17:22 | XMS_ITS | Encounter Summary ---
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 (5 years old or older) Answer Entry Date Author No 04/26/2020 7:00 EDT Chao Saravia RN documented in this encounter Miscellaneous Notes * Telephone Encounter - Heike Mcleod RN - 05/26/2020 1320 EDT Call to Patient Relayed message per Justen BP: 11 am L arm-87/47; R arm 92/50 Half hr ago: L-84/45; R 89/47 HR was 60 and then 56 Has compression stocking and has Been wearing them, just not today. Patient expressed understanding with no barriers No additional questions or concerns to be addressed at this time. In case we would like to see you in the office, in the past 14 days have you had a fever, cough, shortness of breath, exposure to anyone tested positive with covid or with a test pending, and any travel out of the state? No Scheduled for with Dr Veronica. She will coordinate a ride. * Telephone Encounter - Scottie Campuzano PA-C - 05/26/2020 1304 EDT I had a telephone encounter with this patient this morning. I told her we would get back to her within the next 2 or 3 hours. Please call her. #1 ask her what is her blood pressure at home this morning ( she has a cuff, but has not been usingit recently). #2 tell her that I discussed her symptoms with . #3 we would like to see her here in the office later this week.---please schedule with Dr. Veronica or me. 4. We want her to get 'knee high' socks of compression stockings and wear them during the day. Can take them off at night. wearing the socks is an essential part of the care plan, not just a minor point. 5 keep medications the same for now. Please forward to me or Dr. Veronica after you speak with her, so we know that she got the message and who she will see. Ralph Rubin * Telephone Encounter - Heike Mcleod RN - 05/26/2020 0916 EDT Call to pt A little dizzy this AM Taking 50 mg daily spironlactone and 40 mg daily of lasix Takes 1 spironlactone in AM and 1 in PM Takes lasix in AM Has never had problems with breathing before; a little sob for last half hr No chest pain, feels like heart beating fast. Started half hr ago Got shaky and lightheaded this am Toes cold, rest of foot is not Drinking OJ currently; did have a cup of tea 6am; caffinated Usually does not eat in morning. Was craving a donut this AM-had this. Advised to have toast or something with a little protein, less sugar. Does not usually have that much sugar Dinner last night-salad and fish Got a normal nights sleep last night Usually gets up by 3am; sleeps 2 hrs at a time. Not a good sleep pattern Swelling started worsening since yesterday AM; diuretics did not help as it usually does R foot more swollen that L. Left is also more swollen that was yesterday. Had started getting open sore on back of R calf but that has healed. A lot of pain in feet. Toes are numb intermittently. They are bright and shiny with swelling Has been elevating feet. No increased salt; has cut back on it Temp is cool in house; has fans AC was making breathing worse at night; took AC out Uses 02 at night-2L; just at night Got a little nauseas this AM but delphine helped Scheduled for phone visit with Scottie at 10am Advised of red flags to go to ER She does not have transport to visit;advised if needed to call ambulance Any other recommendations? * Telephone Encounter - Cris Copeland - 05/26/2020 0814 EDT Reason for Call: Foot Swelling Summary/Symptoms: Pt's diuretic was increased by Dr. Veronica, swelling seems to be worse since the change. Unable to get flip flops on. Woke up yesterday morning, even after having feet up at night, swelling has been getting worse. Onset and Duration: Does the patient have a computer, laptop or smart phone with high speed & video capability? No If so, would they be interested in doing a video visit via Zoom? No Appointment Offered? No Cris Copeland 05/26/2020 8:29 documented in this encounter Plan of Treatment Upcoming Encounters Date Type Department Care Team (Late st Contact Info) Description 01/04/2025 13:00 EST Office Visit [facility] Ophthalmology - [address] [phone] Gagandeep Rome MD [address] [place] [address], [facility] [address] [place] [phone] 02/11/2025 13:30 EDT Telemedicine [facility] Hematology & Oncology [address] [address] Dana Padilla MD [address] [place] [address], [facility] [address] [place] [address] documented as of this encounter Visit Diagnoses Not on filedocumented in this encounter Care Teams Travel Med Surg Rn Relationship Specialty Start Date End Date Emigdio Veronica MD [address] [place] [phone] PCP - General Internal Medicine - Primary Care 05/22/20 02/21/24 documented as of this encounter
--- OUTSIDE RECORDS SUMMARY | 2024-11-22 17:22 | XMS_ITS | Encounter Summary ---
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 Not on [...] EST Office Visit [facility] [place] [address] Gagandeep Rome MD [address] [place] [address], [address] [place] [phone] 02/11/2025 13:30 EDT Telemedicine [facility] Hematology & Oncology - [address] [phone] Dana Padilla MD [address] [place] [address], [address] [place] [address] documented as of this encounter Visit Diagnoses Not on filedocumented in this encounter Care Teams Perfume Maker Relationship Specialty Start Date End Date Emigdio Veronica MD [address] [place] [address] PCP - General Internal Medicine - Primary Care 05/22/20 02/21/24 documented as of this encounter
--- OUTSIDE RECORDS SUMMARY | 2024-11-22 17:22 | XMS_ITS | Encounter Summary ---
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 * Telephone Encounter - Dinorah, Kraol - 07/08/2020 1429 EDT Rec'd Medical Necessity Form from [facility] for this pt. Is there anything that the CCAs/LPNs &/or Triage can fill out? no Form will be out to Dr Veronica to review & complete what they can , then forward as appropriateper forms protocol. Educated patient regarding 7 day turn around for paperwork. N/A When done fax to [facility] [phone]. documented in this encounter Plan of Treatment Upcoming Encounters Date Type Department Care Team (Late st Contact Info) Description 01/04/2025 13:00 EST Office Visit [facility] Ophthalmology - [address] [phone] Gagandeep Rome MD [address] [place] [address], [facility] [address] [place] [address] 02/11/2025 13:30 EDT Telemedicine [facility] Hematology & Oncology - [address] [phone] Dana Padilla MD [address] [place] [address], [address] [place] [phone] documented as of this encounter Visit Diagnoses Not on filedocumented in this encounter Care Teams Continuous Mining Machine [employer] Miner Relationship Specialty Start Date End Date Emigdio Veronica MD [address] [place] [phone] PCP - General Internal Medicine - Primary Care 05/22/20 02/21/24 documented as of this encounter
--- OUTSIDE RECORDS SUMMARY | 2024-11-22 17:22 | XMS_ITS | Encounter Summary ---
Author Organization [facility] Address [address] [place] [address] Care Team Providers Care Distribution Systems Superintendent Name Role Phone Emigdio Veronica MD Primary Care Provider + Reason for Visit * Reason Onset Date Comments Referral Request 08/13/2020 GI Problem 08/13/2020 Cirrhosis 08/13/2020 Encounter Details Date Type Department Care Team (Late st Contact Info) Description 08/13/2020 Telephone [facility] - [place] [address] [place] [address] Emigdio Veronica MD [address] [place] [phone] Referral Request; GI Problem; Cirrhosis Social History Tobacco Use Types Packs/Day Years [...] 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 * Telephone Encounter - Emigdio Veronica MD - 08/13/2020 1254 EDT Gi referral placed * Telephone Encounter - Cris Copeland - 08/13/2020 1151 EDT Pt says that she needs a new referral for [facility]. Was followed by [facility] until she moved back. Says she was previously seen by [facility] GI but has been too long and they do not have record. GI referral pended. documented in this encounter Plan of Treatment Upcoming Encounters Date Type Department Care Team (Late st Contact Info) Description 01/04/2025 13:00 EST Office Visit [facility] Ophthalmology - [address] [phone] Gagandeep Rome MD [address] [place] [address], [facility] [address] [place] [phone] 02/11/2025 13:30 EDT Telemedicine [facility] Hematology & Oncology - [address] [phone] Dana Padilla MD [address] [place] [address], Level [address] [place] [phone] documented as of this encounter Visit Diagnoses Diagnosis Cirrhosis of liver without ascites, unspecified hepatic cirrhosis type (HCC-CMS)- Primary documented in this encounter Care Teams Distribution Systems Superintendent Relationship Specialty Start Date End Date Emigdio Veronica MD [address] [place] [phone] PCP - General Internal Medicine - Primary Care 05/22/20 02/21/24 documented as of this encounter
--- OUTSIDE RECORDS SUMMARY | 2024-11-22 17:22 | XMS_ITS | Encounter Summary ---
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 Order Details Dose: 50 mg Route: oral Frequency: AT BEDTIME Dispense Quantity: 60 Tab Refills: 0 ?? Sig: Take 1 Tab by mouth at bedtime. ?? Start Date: 06/23/20 Next visit- 10/31/20 Last visit- 08/01/20 documented in this encounter Plan of Treatment Upcoming Encounters Date Type Department Care Team (Late st Contact Info) Description 01/04/2025 13:00 EST Office Visit [facility] Ophthalmology - [address] [phone] Gagandeep Rome MD [address] [place] [address] 5 [place] [phone] 02/11/2025 13:30 EDT Telemedicine [facility] [address] [phone] Dana Padilla MD [address] [place] [address], [facility] 2 [place] [phone] documented as of this encounter Visit Diagnoses Not on filedocumented in this encounter Discontinued Medications Medication Sig Discontinue Reason Start Date End Da te traZODone (DESYREL) 50 mg tablet Take 1 Tab by mouth at bedtime. 06/23/2020 08/18/2020 documented as of this encounter Care Teams Curtain Supervisor Relationship Specialty Start Date End Date Emigdio Veronica MD [address] [place] [phone] PCP - General Internal Medicine - Primary Care 05/22/20 02/21/24 documented as of this encounter
--- OUTSIDE RECORDS SUMMARY | 2024-11-22 17:22 | XMS_ITS | Encounter Summary ---
Author Organization [facility] Address [address] [place] [address] Care Team Providers Care Rectangular Tank Cooper Name Role Phone Emigdio Veronica MD Primary Care Provider + Reason for Visit * Reason Comments Other Encounter Details Date Type Department Care Team (Late st Contact Info) Description 08/04/2020 [facility] Adult Primary Care - [place] [address] [place], [place] [phone] Zeina Curiel, PALeslieC [address] [place] [phone] Other Social History Tobacco Use Types Packs/Day [...] Start Date Job 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 30 Tab 08/04/2020 09/02/2020 documented in this encounter Miscellaneous Notes * Telephone Encounter - Karol Hoff, RN - 08/04/2020 1448 EDT Spoke to patient who reports having a couple of good BM's since she saw Dr Veronica. She denies an increase in her nausea from baseline. * Telephone Encounter - Cris oCpeland - 08/04/2020 1442 EDT Requested Prescriptions Pending Prescriptions Disp Refills ??? ondansetron (ZOFRAN) 4 mg tablet [Pharmacy Med Name: ONDANSETRON HCL 4 MG TABLET] 30 Tab 0 Sig: TAKE 1 TABLET BY MOUTH TWICE A DAY [id number] - [address] Confirmed Pharmacy? Yes Patient out of medication? Yes: Needs Refill Now Last Refill Date: 07.16.20 Refills left? (explain exceptions requiring early refill) No Recent Visits Date Type Provider Dept 08/01/20 Office Visit Emigdio Veronica MD [place] [facility] 06/23/20 Office Visit Emigdio Veronica MD [place] [facility] 05/29/20 Office Visit Emigdio Veronica MD [place] [facility] 05/22/20 Office Visit Emigdio Veronica MD [place] [facility] Showing recent visits within past 540 days with a meds authorizing provider and meeting all other requirements Future Appointments Date Type Provider Dept 10/31/20 Appointment Emigdio Veronica MD [place] [facility] Showing future appointments within next 150 days with a meds authorizing provider and meeting all other requirements Future appointment: Already Scheduled Cris Copeland 08/04/2020 14:42 documented in this encounter Plan of Treatment Upcoming Encounters Date Type Department Care Team (Late st Contact Info) Description 01/04/2025 13:00 EST Office Visit [facility] Ophthalmology - [address] [phone] Gagandeep Rome MD [address] [place] [address], [facility] [address] [place] [phone] 02/11/2025 13:30 EDT Telemedicine [facility] Hematology & Oncology - [address] [phone] Dana Padilla MD [address] [place] [address], [facility] 2 [place] [phone] documented as of this encounter Visit Diagnoses Not on filedocumented in this encounter Discontinued Medications Medication Sig Discontinue Reason Start Date End Da te ondansetron (ZOFRAN) 4 mg tablet TAKE 1 TABLET BY MOUTH TWICE A DAY 07/16/2020 08/04/2020 documented as of this encounter Care Teams Rectangular Tank Cooper Relationship Specialty Start Date End Date Emigdio Veronica MD [address] [place] [phone] PCP - General Internal Medicine - Primary Care 05/22/20 02/21/24 documented as of this encounter
--- OUTSIDE RECORDS SUMMARY | 2024-11-22 17:22 | XMS_ITS | Encounter Summary ---
Author Organization [facility] Address [address] [place] [address] Care Team Providers Care Machine Gunner Name Role Phone Emigdio Veronica MD Primary Care Provider + Encounter Details Date Type Department Care Team (Late st Contact Info) Description 06/05/2020 14:55 EDT Phlebotomy Only [facility] Laboratory Services - [facility] [address] [place] [address] Services Account Manager, [facility] Phlebotomy Pancytopenia (HCC-CMS); Other specified hypothyroidism; Bilateral lower extremity edema Social History Tobacco [...] 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 [...] Office Visit [facility] Ophthalmology - [address] [address] Gagandeep Rome MD [address] [facility], Level [address] [place] [address] 02/11/2025 13:30 EDT Telemedicine [facility] Hematology & Oncology - [facility] [address] [place], [place] [phone] Dana Padilla MD [address] [facility], Level [address] [place] [address] documented as of this encounter Procedures Procedure Name Priority Date/Time Associated Diagnosis Comments DIFFERENTIAL, AUTOMATED MANUAL Today 06/05/2020 15:02 EDT Pancytopenia (HCC-CMS) COMPREHENSIVE METABOLIC PANEL (ONCOLOGY USE ONLY-INC MG) STAT 06/05/2020 15:02 EDT Pancytopenia ([facility]-CMS) COMPLETE BLOOD COUNT AND DIFFERENTIAL STAT 06/05/2020 15:02 EDT Pancytopenia ([facility]-CMS) TSH Routine 06/05/2020 15:02 EDT Other specified hypothyroidism FERRITIN Routine 06/05/2020 15:02 EDT Pancytopenia (HCC-CMS) BASIC METABOLIC PANEL (BMP) Routine 06/05/2020 15:02 EDT Bilateral lower extremity edema documented in this encounter Results * (ABNORMAL) DIFFERENTIAL, AUTOMATED MANUAL (06/05/2020 15:02 EDT) % Neutrophils 80.0 % 06/05/2020 16:54 EDT [facility] % Lymphocytes 15.6 % 06/05/2020 16:54 EDT [facility] % Atypical Lymphocytes 0.9 % 06/05/2020 16:54 EDT [facility] % Monocytes 1.7 % 06/05/2020 16:54 EDT [facility] % Eosinophils 0.9 % 06/05/2020 16:54 EDT [facility] % Basophils 0.9 % 06/05/2020 16:54 EDT [facility] Absolute Neutrophils 1.11(L) 2.20 - 8.85 K/cmm 06/05/2020 16:54 EDT [facility] Absolute Lymphocytes 0.22(L) 1.09 - 3.30 K/cmm 06/05/2020 16:54 T [facility] Absolute Atypical Lymphocytes 0.01 K/cmm 06/05/2020 16:54 T [facility] Absolute Monocytes 0.02(L) 0.10 - 0.80 K/cmm 06/05/2020 16:54 T [facility] Absolute Eosinophils 0.01(L) 0.03 - 0.61 K/cmm 06/05/2020 16:54 [facility] Basophils 0.01 0.01 - 0.11 K/cmm 06/05/2020 16:54 T [facility] Blood VENOUS BLOOD / Unknown Venipuncture / Unknown 06/05/2020 15:02 EDT 06/05/2020 15:02 EDT us Starr Paige MD HEMATOLOGY & PF4 ORDERABLES Final Result [facility] [address] [place] [address] * (ABNORMAL) BASIC METABOLIC PANEL (BMP) (06/05/2020 15:02 EDT) Sodium 135(L) 136 - 145 mEq/L 06/05/2020 16:18 EDT [facility] Potassium 4.1 3.5 - 5.0 mEq/L 06/05/2020 16:18 [facility] Chloride 98 96 - 110 mEq/L 06/05/2020 16:18 [facility] CO2 Total 30 22 - 32 mEq/L 06/05/2020 16:18 [facility] Glucose 127(H) 70 - 100 mg/dL 06/05/2020 16:18 [facility] Calcium 8.9 8.5 - 10.5 mg/dL 06/05/2020 16:18 EDT [facility] Calculated Calcium 9.1 8.5 - 10.5 mg/dL 06/05/2020 16:18 EDT [facility] BUN 11 10 - 26 mg/dL 06/05/2020 16:18 EDT [facility] Creatinine 0.97 0.52 - 1.04 mg/dL 06/05/2020 16:18 EDT [facility] eGFR 64 >60 mL/min/1.7 3m2 06/05/2020 16:18 EDT [facility] Comment:eGFR calculated lobito coppola CKD-EPI equation for non- Americans. Multiply eGFR by 1.16 for patients. Blood VENOUS BLOOD / Unknown Venipuncture / Unknown 06/05/2020 15:02 EDT 06/05/2020 15:02 EDT Emigdio Veronica MD CHEMISTRY & BLOOD GAS OR DERABLES Final Result Performing Organization Address City/[facility] Co de Phone Number [facility] [address] [place] [address] * (ABNORMAL) TSH (06/05/2020 15:02 EDT) Pathologist [facility] TSH 5.51(H) 0.47 - 4.68 uIU/mL 06/05/2020 16:50 EDT [facility] Blood VENOUS BLOOD / Unknown Venipuncture / Unknown 06/05/2020 15:02 EDT 06/05/2020 15:02 EDT Narrative [facility] - 06/05/2020 16:50 EDT The results of this assay can be falsely lowered due to the consumption of Biotin. us Emigdio Veronica MD CHEMISTRY & BLOOD GAS OR DERABLES Final Result Performing Organization Address City/[facility]/ZIP Co de Phone Number [facility] [address] [place] [address] * FERRITIN (06/05/2020 15:02 EDT) Ferritin 161 10 - 291 ng/mL 06/06/2020 10:17 [facility] Blood VENOUS BLOOD / Unknown Venipuncture / Unknown 06/05/2020 15:02 EDT 06/05/2020 15:02 EDT us Starr Paige MD CHEMISTRY & BLOOD GAS ORDER YANN Final Result [facility] [address] [place] [address] * (ABNORMAL) COMPREHENSIVE METABOLIC PANEL (ONCOLOGY USE ONLY-INC MG) (06/05/2020 15:02 EDT) Sodium 135(L) 136 - 145 mEq/L 06/05/2020 16:18 [facility] Potassium 4.1 3.5 - 5.0 mEq/L 06/05/2020 16:18 [facility] Chloride 98 96 - 110 mEq/L 06/05/2020 16:18 [facility] CO2 Total 30 22 - 32 mEq/L 06/05/2020 16:18 [facility] Glucose 127(H) 70 - 100 mg/dL 06/05/2020 16:18 [facility] BUN 11 10 - 26 mg/dL 06/05/2020 16:18 [facility] Creatinine 0.97 0.52 - 1.04 mg/dL 06/05/2020 16:18 [facility] eGFR 64 >60 mL/min/1.7 3m2 06/05/2020 16:18 [facility] Comment:eGFR calculated lobito coppola CKD-EPI equation for non- Americans. Multiply eGFR by 1.16 for patients. Total Protein 6.5 6.3 - 8.2 g/dL 06/05/2020 16:18 [facility] Albumin 3.8 3.4 - 4.9 g/dL 06/05/2020 16:18 [facility] Alkaline Phosphatase 76 38 - 126 U/L 06/05/2020 16:18 [facility] AST 32 15 - 46 U/L 06/05/2020 16:18 [facility] ALT 17 <35 U/L 06/05/2020 16:18 [facility] Bilirubin, Total 0.8 <1.4 mg/dL 06/05/20 20 16:18 [facility] Calcium 8.9 8.5 - 10.5 mg/dL 06/05/2020 16:18 [facility] Calculated Calcium 9.1 8.5 - 10.5 mg/dL 06/05/2020 16:18 [facility] Magnesium 1.6(L) 1.7 - 2.8 mg/dL 06/05/2020 16:18 [facility] Blood VENOUS BLOOD / Unknown Venipuncture / Unknown 06/05/2020 15:02 EDT 06/05/2020 15:02 EDT us Starr Paige MD CHEMISTRY & BLOOD GAS ORDER YANN Final Result [facility] [address] [place] [address] * (ABNORMAL) COMPLETE BLOOD COUNT AND DIFFERENTIAL (06/05/2020 15:02 EDT) WBC 1.39(L) 4.00 - 12.40 K/cmm 06/05/2020 16:03 [facility] RBC 3.58(L) 3.86 - 5.04 M/cmm 06/05/2020 16:03 [facility] Hemoglobin 10.8(L) 11.6 - 15.2 gm/dL 06/05/2020 16:03 [facility] HCT 33.7(L) 34.9 - 44.4 % 06/05/2020 16:03 [facility] MCV 94 81 - 98 fl 06/05/2020 16:03 [facility] MCH 30.2 26.7 - 33.3 pg 06/05/2020 16:03 [facility] MCHC 32.0(L) 32.1 - 35.9 gm/dL 06/05/2020 16:03 [facility] RDW-CV 14.0 <14.7 % 06/05/2020 16:03 EDT [facility] RDW-SD 48.2 <50.4 fl 06/05/2020 16:03 EDT [facility] PLT 39(L) 141 - 377 K/cmm 06/05/2020 16:03 EDT [facility] MPV 10.9 9.5 - 12.7 fl 06/05/2020 16:03 EDT [facility] Type of Differential: Manual 06/05/2020 16:03 EDT [facility] Blood VENOUS BLOOD / Unknown Venipuncture / Unknown 06/05/2020 15:02 EDT 06/05/2020 15:02 EDT us Starr Paige MD PACKAGES & DNA PROBE ORDERA BLES Final Result [facility] [address] [place] [address] documented in this encounter Visit Diagnoses Diagnosis Pancytopenia (HCC-CMS) Other pancytopenia Other specified hypothyroidism Bilateral lower extremity edema Edema documented in this encounter Care Teams Machine Gunner Relationship Specialty Start Date End Date Emigdio Veronica MD [address] [place] [phone] PCP - General Internal Medicine - Primary Care 05/22/20 02/21/24 documented as of this encounter
--- OUTSIDE RECORDS SUMMARY | 2024-11-22 17:22 | XMS_ITS | Encounter Summary ---
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 [...] EST Office Visit [facility] Ophthalmology - [address] [phone] Gagandeep Rome MD 111 [facility], [facility] [address] [place] [phone] 02/11/2025 13:30 EDT Telemedicine [facility] Hematology & Oncology - [address] [phone] Dana Padilla MD 111 [facility], [facility] [address] [place] [phone] documented as of this encounter Visit Diagnoses Diagnosis Hypothyroidism, unspecified type- Primary documented in this encounter Care Teams American Indian Studies Professor Relationship Specialty Start Date End Date Emigdio eVronica MD [address] [place] [phone] PCP - General Internal Medicine - Primary Care 05/22/20 02/21/24 documented as of this encounter
--- OUTSIDE RECORDS SUMMARY | 2024-11-22 17:22 | XMS_ITS | Encounter Summary ---
Author Organization [facility] Address [address] [place] [address] Care Team Providers Care Character Artist Name Role Phone Emigdio Veronica MD Primary Care Provider + Reason for Visit * Reason Comments New Patient Visit Chronic Obstructive Pulmonary Disease * Consult (Routine) - Order Cancelled Specialty Diagnoses / Procedures Referred By Serene huitron Referred To Contact Pulmonary Disease Diagnoses Dyspnea, unspecified type Farhana Gonzalez DO Phone: tel: fax: [facility] [address] [address] Phone: tel: fax: Referral ID Status Reason Start Date Expiration Date Visits Requested Visits Authorized [id number] Order Cancelled Specialty Services Required 04/28/2020 1 1 Encounter Details Date Type Department Care Team (Late st Contact Info) Description 06/19/2020 15:15 EDT Office Visit [facility] [address] [phone] Katherin Dumont DO [address] [place] [address] COPD with asthma ([facility]) (Primary Dx); HUEY (obstructive sleep apnea) Social [...] Job Start Date Job End Date 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 No / Unsure 06/19/2020 15:19 EDT documented as of this encounter Last Filed Vital Signs Vital Sign Reading Time Taken Comments Blood Pressure 104/60 06/19/2020 1508 EDT Pulse 83 06/19/2020 1508 EDT Temperature 36.6 ??C (97.9 ??F) 06/19/2020 1508 EDT Respiratory Rate 24 06/19/2020 1508 EDT Oxygen Saturation 95% 06/19/2020 1508 EDT Inhaled Oxygen Concentration - - Weight 92.5 kg (204 lb) 06/19/2020 1508 EDT Height - - Body Mass Index 35.29 05/22/2020 1507 EDT documented in this encounter [...] this encounter Patient Instructions * Patient Instructions* Katherin Dumont DO - 06/19/2020 15:15 EDT - Please talk with Dr. Veronica this week about increasing your diuretic/water pill (we will send him a message, too) - We will have you increase your Lasix to two pills once a day (from once a day) because of the severity of your increased fluid in your legs and issues with sleeping at night - We have started you on a new inhaler for your asthma/COPD which you should take in addition to your Symbicort. This is called Spiriva. - We have placed a referral to sleep clinic. If you don't hear within a week, let us know. We wouldrecommend avoiding any driving until you have this evaluated. - We will see you in about 3-4 months with breathing tests at that visit - Call me if issues documented in this encounter Ordered Prescriptions Prescription Sig Dispense Quantity Refills Last Filled Start Date End Date furosemide (LASIX) 40 mg tablet Take 2 Tabs by mouth daily. 60 Tab 06/19/2020 0 tiotropium (SPIRIVA WITH HANDIHALER) 18 mcg inhalation capsule Inhale 1 Cap as directed daily. 1 Box 11 06/19/2020 0 documented in this encounter Progress Notes * Katherin Dumont DO - 06/19/2020 1515 EDT PULMONARY CLINIC NEW PATIENT VISIT Date: 06/19/2020 Reason for Consult: Unknown Requesting Provider: Farhana Gonzalez DO PCP: Emigdio Veronica Pulmonary History Dyspnea, mostly fluid overload - Multiple ED visits -04/2020 for dyspnea, worse w/ laying flat, out of diuretic, CTPE neg but showed mild pulm edema - Hospitalized April 2020 for dyspnea, found to be hypercapnic, tx as CHF +COPD - Observed desaturations while asleep - Hx mild asthma, on Symbicort Tobacco use - 0.25-0.75PPD x 40 years with intermittent stop dates (~20PY hx) - currently 3 cig per week, stopped reg use 2018 HUEY - Overnight ox 04/28/20 (inpatient): RENATO 18.4, 51 minutes below 88%, suggestive of HUEY - ABG 04/26/2020 7.38/41 (not CO2 retaining) Multiple medical issues - QUIROZ cirrhosis, pancytopenia, hypothyroidism, HUEY, diastolic CHF - On Lasix, Aldactone, follows w/ PCP Subjective: Ms. Yun is a 59 y.o. female with a past medical history of tobacco use and QUIROZ cirrhosis who presents today for evaluation of shortness of breath. She presents today to discuss the breathing issues that she has had that have developed more recently. She reports that she has a baseline history of asthma, for which she has been on maintenance inhalers for many years. About 6 months ago she stepped up to Symbicort from Flovent, she reports that her doctor did that due to the presumed diagnosis of COPD. On a regular basis, she did not have any issues with her breathing, and did not have any noticeable issues with shortness of breath. Recently, she started to have increasing lower extremity edema and had her diuretic regimen adjusted. She ended up with multiple emergency room visits in the hospitalization at the end of March, beginning of April 2020. She had evaluation for PE, which was negative, but did have evidence of lower extremity edema as well as pulmonary edema. She had her diuretics increased and did have improvement in symptoms. VBG during that visit did not show any hypercapnia. She was also empirically treated at least for a few days in the hospital as though this could be a component of a COPD/asthma exacerbation, she did not continue on those after discharge. Echo did not show any evidence of pulmonary hypertension. She did not have any evidence of diastolic dysfunction or an elevated BNP. The thought was dysregulated fluid balance due to cirrhosis. Her episodes of shortness of breath that led to those emergency room/hospitalizations, was that shewould wake up acutely in the middle of the night feeling as though she could not breathe. She wouldget up and walk around outside, which would help. She props her cell phone 3 pillows at night, has been doing this for a while. She would use her nebulizer and/or albuterol HFA during those episodes,without much relief. She had been taking her maintenance Symbicort. After her hospitalization, she felt better. However, over the last couple of days she has had significantly increasing lower extremity edema to the point that her calves feel tight and the skin is beginning to open and weep. She also had an episode last night where she felt short of breath like shedid previously, and got up and walked around and felt better. She was discharged from the hospital on 2 L of oxygen overnight. She is currently smoking about 3 cigarettes a week, she has maintained being off of regular use since 2018, which has been difficult because she lives with multiple heavy smokers. She was given some anxiety medications during 1 of her hospitalizations due to significant nervousness around the inability to breathe, and had multiple witnessed apneas with desaturations after receiving Ativan. She had an overnight oximetry done in the hospital which showed that she needed 2 L with sleep, but also had a pattern suggestive of HUEY. She reports that she may have had a sleep clinicvisit with [facility] a long time ago, but does not remember being told she had HUEY. She admits to her granddaughter telling her that she has a history of snoring, she has been waking up gasping, and has had unexpected episodes where she will fall asleep while doing things around the house. This does not happen while driving. She does not necessarily wake up feeling rested. She has felt significantly sleepy during the day. PMHx: has Pancytopenia (HCC-CMS); Mild persistent asthma without complication; Drug-seeking behavior; Hypersplenism syndrome; Splenic vein thrombosis; Hematuria, gross; Chronic back pain; Cirrhosis of liver (HCC-CMS); Obesity, Class II, BMI 35-39.9; Hypothyroidism; Abdominal wall hernia; Allergic rhinitis; Partial small bowel obstruction (HCC-CMS); HUEY (obstructive sleep apnea); and Dyspnea on their problem list. PSHx: has a past surgical history that includes hernia repair; Appendectomy; Tonsillectomy; Cholecystectomy; Hysterectomy; knee surgery (Bilateral); joint replacement (Bilateral); Wrist surgery (Right); Gastric fundoplication; and bone marrow biopsy. Meds: Current Outpatient Medications: ??? albuterol (ACCUNEB) 2.5 mg /3 mL (0.083 %) nebulizer solution, USE 1 VIAL VIA NEBULIZER 4 TIMESA DAY NEEDED, Disp: , Rfl: ??? albuterol 90 mcg/actuation inhaler, Inhale 2 Puffs as directed every 4 hours as needed. , Disp:, Rfl: ??? diclofenac sodium (VOLTAREN) 1 % gel, Apply a thin film (2.5 g) to areas of pain once to twice daily., Disp: 1 Tube, Rfl: 2 ??? ERGOCALCIFEROL, VITAMIN D2, (VITAMIN D ORAL), Take by mouth., Disp: , Rfl: ??? ferrous gluconate (FERGON) 324 mg (38 mg iron) tablet, Take 324 mg by mouth daily with breakfast. , Disp: , Rfl: ??? furosemide (LASIX) 40 mg tablet, Take 1 Tab by mouth daily., Disp: 90 Tab, Rfl: 3 ??? HYDROXYZINE HCL ORAL, Take by mouth., Disp: , Rfl: ??? LEVOTHYROXINE SODIUM (LEVOTHYROXINE ORAL), Take 25 mcg by mouth daily. Unknown dose , Disp: , Rfl: ??? ondansetron (ZOFRAN) 4 mg tablet, Take 4 mg by mouth 2 times daily as needed., Disp: , Rfl: ??? OXYGEN-AIR DELIVERY SYSTEMS MISC, by misc (non-drug; combo route) route., Disp: , Rfl: ??? spironolactone (ALDACTONE) 25 mg tablet, Take 50 mg by mouth daily. , Disp: , Rfl: ??? SYMBICORT 160-4.5 mcg/actuation HFA aerosol inhaler inhaler, Inhale 2 Puffs as directed daily.,Disp: , Rfl: ??? tamsulosin (FLOMAX) 0.4 mg capsule, Take 1 Cap by mouth daily., Disp: 30 Cap, Rfl: 11 No current facility-administered medications for this visit. Facility-Administered Medications Ordered in Other Visits: ??? albuterol (ACCUNEB) 2.5 mg /3 mL (0.083 %) nebulizer solution, , , , Allergies: Allergies Allergen Reactions ??? Morphine Anaphylaxis ??? Sulfa (Sulfonamide Antibiotics) Anaphylaxis ??? Tylenol [Acetaminophen] Other (See Comments) Contraindication with medical hx ??? Aspirin Other (See Comments) Contraindication with medical hx ??? Injectafer [Ferric Carboxymaltose] ??? Lyrica [Pregabalin] Anxiety Insomnia ??? Reglan [Metoclopramide Hcl] Rash Family Hx: family history includes Cancer in her maternal grandmother; Clotting Disorder in her father; Coronary Artery Disease in her father; Diabetes in her brother and mother. Social Hx: reports that she has been smoking cigarettes. She has a 26.25 pack- year smoking history.She has never used smokeless tobacco. She reports that she has current or past drug history. Drug: Marijuana. She reports that she does not drink alcohol. - Smoker: Yes as above; hx of secondhand at currently living situation and hx as childhood - Vaping: No - Birds: No - Pets: Dog (star brink), cat and floyd lab in the house - Profession: She is part-time, works at [employer] opens up [employer] in the morning - Occupational exposures: No - Asbestos exposure: No - History of TB: No - Hx of cancer: Not personally, grandmother had skin cancer - Hx of melanoma: No ROS: A 10-point review of systems was performed and pertinent negatives and positives are listed above. Exam: BP 104/60 Pulse 83 Temp 36.6 ??C (97.9 ??F) (Tympanic) Resp 24 Wt 92.5 kg (204 lb) SpO2 95% BMI 35.29 kg/m?? Gen: Awake, alert, comfortable-appearing. Sitting up in chair. No conversational dyspnea. Head: Normocephalic, atraumatic Eyes: Sclera anicteric, EOMI ENT: +wearing mask Neck: Supple, no LAD CV: Regular, S1, S2, no murmurs appreciated Lungs: +musical wheezing insp/exp bilaterally without cough or distress, no real crackles appreciated Abd: Soft, non-distended Ext: +tight edema in LE bilaterally, pt unable to roll up pants due to tightness, unclear if pitting Skin: +cutaneous telangiectasias over chest MSK: No joint deformity or warmth Neuro: No focal deficits Psych: Normal mood and affect. Imaging: Personally reviewed: 04/28/2020 TTE ??? Left Ventricle: Left ventricular systolic function was normal with an ejection fraction of 60-65%. ??? Left Ventricle: Left ventricular diastolic parameters were normal. ??? Left Ventricle: Left ventricular wall motion was normal; there were no regional wall motion abnormalities. ??? Right Ventricle: Right ventricular systolic function was normal. 04/26/2020 CXR IMPRESSION Mild pulmonary interstitial edema. 04/19/2020 CTPE IMPRESSION 1. No evidence of pulmonary embolus. 2. Mild hydrostatic pulmonary edema and left ventricular chamber measuring at the upper limits of normal.. 3. Known cirrhosis and findings of portal hypertension within the upper abdomen. 11/2019 CTA chest IMPRESSION 1. No evidence of dissection, aneurysm, or other acute aortic abnormality. 2. Focal stenosis of the proximal left circumflex coronary artery estimated at less than 50%, not optimally evaluated on this examination. Spirometry: Date FEV1/FVC LLN FEV1 (L) LLN (L) FVC (L) LLN (L) Comments 06/19/2020 Lung Volumes/DLCO/Airway Resistance Date TLC (L) % DLCOuncor % sGaw % 06/19/2020 Assessment: Ms. Yun is a 59 y.o. female with a past medical history of tobacco use, QUIROZ cirrhosis with fluidoverload who presents today for evaluation of dyspnea. Fluid overload, cirrhosis - Likely predominantly related to fluid overload related to cirrhosis, with multiple ED visits w/ symptoms consistent w/ pulmonary edema, pulmonary edema on CT and CXR, and worsening LE edema in the setting of missing diuretic doses. No diastolic dysfunction on TTE, normal BNP. - On Aldactone 50mg qd and Lasix 40mg qd, managed by PCP - Given her acute worsening over the last 24H with edema and repeat episodes of PND, concern that she is developing clinically significant fluid overload which may result in worsening. - We have advised her to increase her Lasix to 80mg daily for now; we will send this note to Dr. Veronica and also have asked her to call Dr. Veronica's office tomorrow Asthma/COPD - Reported h/o asthma, no PFTs, in the setting of ongoing tobacco use. 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 No evidence during recent hospitalization for dyspnea, during which she was treated as ?COPD exacerbation, of hypercapnia or hyperinflation - Continue Symbicort for now, given presence of wheezing on exam will also add on LAMA w/ the use of Spiriva - PFTs w/ kelby/DLCO at next visit Tobacco use - Greatly reduced, encouraged to avoid use particularly given her social situation living w/ multiple smokers HUEY - Strong clinical suspicion based on described symptoms, with associated episodes of daytime falling asleep unexpectedly and also overnight oximetry showing sustained desaturations and sawtooth appearance - Discouraged driving until evaluated - Continue 2LPM O2 qHS for now - Referral to [facility] in [place], [place] ([facility] sleep center w/ considerable wait time)- hopefully this can get done SHON Plan: 1. Increase Lasix to 80mg daily, continue Aldactone at present dose. We will send this note to Dr. Veronica and also asked her to contact his office tomorrow to notify and check if wants any labs, etc. 2. Rx for Spiriva sent to her pharmacy, continue Symbicort. 3. Referral to [facility]. 4. Encouraged tobacco avoidance 5. Call me if issues, f/u w/ PCP next week RTC in 3-4 mo for f/u with kelby/DLCO prior. Patient seen and discussed with Dr. Joya. Katherin Dumont DO [facility] and Critical Care Fellow, PGY-6 Pager #[phone] Attestation statement: I saw and examined the patient with the resident/fellow. I agree with the findings and plan of care documented in the resident's/fellow's note. Despite normal NT-pBNP and echo,we suspect fluid overload is playing a role in SOB. Other causes include COPD and HUEY (SOB episodesat night). Plans as above. Scottie Joya MD * Cora Galdamez MA - 06/19/2020 1515 EDT Pulmonary Review of Symptoms Constitutional: Night Sweats and Snoring Hematology: NONE Eyes: NONE Ear, Nose and Throat: Headaches Allergies: Seasonal Skin: NONE Neurological: Dizziness Genitourinary: NONE Endocrine / Heme / Allergies: Excessive Thirst Psychiatric: Difficulty Sleeping Gastrointestinal: Nausea Cardiovascular: Chest Pain, Shortness of Breath when Lying Down, Hand or Foot Color Change Associated with Cold, Wake Up Short of Breath at Night and Leg Swelling Musculoskeletal: Muscle Aches, Back Pain and Joint Pain Respiratory: Cough, Shortness of Breath and Wheezing Other Comments / Notes: documented in this encounter Plan of Treatment Upcoming Encounters Date Type Department Care Team (Late st Contact Info) Description 01/04/2025 13:00 EST Office Visit [facility] [place] [address] Gagandeep Rome MD [address] [place], [place] [address], [address] [place] [phone] 02/11/2025 13:30 EDT Telemedicine [facility] H[facility] Oncology - [facility] [address], [place] [phone] Dana Padilla MD [address] [facility], [facility] [address] [place] [address] documented as of this encounter Visit Diagnoses Diagnosis COPD with asthma ([facility])- Primary Chronic obstructive asthma, unspecified HUEY (obstructive sleep apnea) Obstructive sleep apnea (adult) (pediatric) documented in this encounter Discontinued Medications Medication Sig Discontinue Reason Start Date End Da te furosemide (LASIX) 40 mg tablet Take 1 Tab by mouth daily. 05/22/2020 06/19/2020 documented as of this encounter Historical Medications * This list may reflect changes made after this encounter. OXYGEN-AIR DELIVERY SYSTEMS MISCIndications:2 L @ night via nC 2 L by misc (non-drug; combo route) route at bedtime. HYDROXYZINE HCL ORAL Take by mouth. 06/23/2020 added in this encounter Care Teams Character Artist Relationship Specialty Start Date End Date Emigdio Veronica MD [address] [place] [phone] PCP - General Internal Medicine - Primary Care 05/22/20 02/21/24 documented as of this encounter
--- OUTSIDE RECORDS SUMMARY | 2024-11-22 17:22 | XMS_ITS | Encounter Summary ---
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 Not on [...] [facility] Ophthalmology - [address] [phone] Gagandeep Rome MD [address] [place] [address] [address] [place] [phone] 02/11/2025 13:30 EDT Telemedicine [facility] Hematology & Oncology - [address] [phone] Dana Padilla MD [address] [place] [address] [address] [place] [address] documented as of this encounter Visit Diagnoses Diagnosis Mild persistent asthma without complication- Primary Unspecified asthma documented in this encounter Care Teams Legal Arbitrator Relationship Specialty Start Date End Date Emigdio Veronica MD [address] [place] [phone] PCP - General Internal Medicine - Primary Care 05/22/20 02/21/24 documented as of this encounter
--- OUTSIDE RECORDS SUMMARY | 2024-11-22 17:22 | XMS_ITS | Encounter Summary ---
Author Organization [facility] Address [address] [place] [address] Care Team Providers Care Veterinary Medicine Scientist Name Role Phone Emigdio Veronica MD Primary Care Provider + Reason for Visit * Reason Onset Date Comments Appointment Related 08/13/2020 Encounter Details Date Type Department Care Team (Late st Contact Info) Description 08/13/2020 Telephone [facility] H[facility] Oncology - [facility] [address] [place], [place] [phone] Starr Paige MD [address] [place] [address] Appointment Related Social History Tobacco [...] Job Start Date Job End Date [employer]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 * Telephone Encounter - Chaparrita Salazar - 08/13/2020 1132 EDT Patient states she is checking on 6 month fur. I only see labs 09/12/20. Please review and call. documented in this encounter Plan of Treatment Upcoming Encounters Date Type Department Care Team (Late st Contact Info) Description 01/04/2025 13:00 EST Office Visit [facility] Ophthalmology - [address] [phone] Gagandeep Rome MD [address] [place] [address], [facility] [address] [place] [address] 02/11/2025 13:30 EDT Telemedicine [facility] Hematology & Oncology - [address] [phone] Dana Padilla MD [address] [place] [address], [address] [place] [address] documented as of this encounter Visit Diagnoses Not on filedocumented in this encounter Additional Health Concerns Infection Onset Date Last Indicated Resolved Time R/O COVID-19 08/25/2020 08/25/2020 08/30/2020 22:1 5 EDT documented as of this encounter Care Teams Veterinary Medicine Scientist Relationship Specialty Start Date End Date Emigdio Veronica MD [address] [place] [phone] PCP - General Internal Medicine - Primary Care 05/22/20 02/21/24 documented as of this encounter
--- OUTSIDE RECORDS SUMMARY | 2024-11-22 17:22 | XMS_ITS | Encounter Summary ---
Author Organization 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 1 Each 11 06/20/2020 12/02/2020 documented in this encounter Miscellaneous Notes * Telephone Encounter - Maria Majano, - 06/20/2020 0913 EDT Spiriva not covered by insurance, pharmacy would like to know if Dr is Ok with Incruse Ellipta 62.5? I will also send an order for Symbicort to the pharmacy. Approved by Dr Dumont. Requested Prescriptions Signed Prescriptions Disp Refills ??? umeclidinium (INCRUSE ELLIPTA) 62.5 mcg/actuation 1 Each 11 Sig: Take 1 Puff by mouth daily. Authorizing Provider: KATHERIN DUMONT Ordering User: MARIA MAJANO documented in this encounter Plan of Treatment Upcoming Encounters Date Type Department Care Team (Late st Contact Info) Description 01/04/2025 13:00 EST Office Visit [facility] Ophthalmology - [address] [phone] Gagandeep Rome MD [address] [place] [address], [facility] [address] [place] [phone] 02/11/2025 13:30 EDT Telemedicine [facility] Hematology & Oncology - [address] [phone] Dana Padilla MD [address] [place] [address], [address] [place] [phone] documented as of this encounter Visit Diagnoses Diagnosis COPD with asthma ([facility])- Primary Chronic obstructive asthma, unspecified documented in this encounter Discontinued Medications Medication Sig Discontinue Reason Start Date End Da te tiotropium (SPIRIVA WITH HANDIHALER) 18 mcg inhalation capsule Inhale 1 Cap as directed daily. 06/19/2020 06/20/2020 documented as of this encounter Care Teams Soil Sort Worker Relationship Specialty Start Date End Date Emigdio Veronica MD [address] [place] [phone] PCP - General Internal Medicine - Primary Care 05/22/20 02/21/24 documented as of this encounter
--- OUTSIDE RECORDS SUMMARY | 2024-11-22 17:22 | XMS_ITS | Encounter Summary ---
Author Organization [facility] Address [address] [place] [address] Care Team Providers Care Package Line Operator Name Role Phone Alma Farfan MD Primary Care Provider [phone] Encounter Details Date Type Department Care Team (Late st Contact Info) Description 04/28/2020 Orders Only [facility] Pulmonology & Critical Care - [facility] [address] [place], [place] [phone] Chaparrita Gomes MD [address] [facility], [address] [place] [address] Chronic obstructive pulmonary disease, unspecified COPD type ([facility]) (Primary Dx) Social History Tobacco Use Types Packs/Day Years Used Date Smoking Tobacco: Every Day Cigarettes 0.5 20 Smokeless Tobacco: Never Alcohol Use Standard Drinks/Week [...] [facility] Ophthalmology - [address] [phone] Gagandeep Rome MD [address] [place] [address] 5 [place] [phone] 02/11/2025 13:30 EDT Telemedicine [facility] Hematology & Oncology [address] [phone] Dana Padilla MD [address] [place] [address], [facility] 2 [place] [phone] documented as of this encounter Visit Diagnoses Diagnosis Chronic obstructive pulmonary disease, unspecified COPD type ([facility])- Primary documented in this encounter Care Teams Package Line Operator Relationship Specialty Start Date End Date Alma Farfan MD PCP - General 03/14/19 05/21/20 documented as of this encounter
--- OUTSIDE RECORDS SUMMARY | 2024-11-22 17:22 | XMS_ITS | Encounter Summary ---
Author Organization [facility] Address [address] [place] [address] Care Team Providers Care Senior Staff Specialized Employment Name Role Phone Emigdio Veronica MD Primary Care Provider + Reason for Visit * Reason Comments Other Encounter Details Date Type Department Care Team (Late st Contact Info) Description 07/15/2020 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 Relayed Zeina Curiel's message below. -States she takes it almost daily and has been for a long time for nausea. -States she is nauseous all the time and this is the only way she can keep food down -Usually takes one tab a day, sometimes two -States she has been dealing with edema and has had a lot of medication changes lately for her diuretics (lasix and spironolactone) which she believes is contributing to her nausea -Denies any side effects and states the medication works well. * Telephone Encounter - Zeina Curiel PA-C - 07/16/2020 1216 EDT Provider is out of the office this week. Please find out why she takes this medication and if she takes it on a regular basis. * Telephone Encounter - Karol Hoff RN - 07/15/2020 0920 EDT Not prescribed by you previously. * Telephone Encounter - Ebony Toscano - 07/15/2020 0915 EDT Requested Prescriptions Pending Prescriptions Disp Refills ??? ondansetron (ZOFRAN) 4 mg tablet [Pharmacy Med Name: ONDANSETRON HCL 4 MG TABLET] 30 Tab 5 Sig: TAKE 1 TABLET BY MOUTH TWICE A DAY [id number] - [place], [place] - [address] Confirmed Pharmacy? Yes Patient out of medication? Yes: Needs Refill Now Last Refill Date: 11.07.19 Refills left? (explain exceptions requiring early refill) No Recent Visits Date Type Provider Dept 06/23/20 Office Visit Emigdio Veronica MD [facility] 05/29/20 Office Visit Emigdio Veronica MD [facility] 05/22/20 Office Visit Emigdio Veronica MD [facility] Showing recent visits within past 540 days with a meds authorizing provider and meeting all other requirements Future Appointments Date Type Provider Dept 07/24/20 Appointment Emigdio Veronica MD [facility] Showing future appointments within next 150 days with a meds authorizing provider and meeting all other requirements Future appointment: Already Scheduled Ebony Toscano 07/15/2020 9:15 documented in this encounter Plan of Treatment Upcoming Encounters Date Type Department Care Team (Late st Contact Info) Description 01/04/2025 13:00 EST Office Visit [facility] Ophthalmology - [address] [place] [phone] Gagandeep Rome MD [address] [place] [address], [facility] 5 [place] [phone] 02/11/2025 13:30 EDT Telemedicine [facility] Hematology & Oncology [address] [phone] Dana Padilla MD [address] [place] [address], [facility] 2 [place] [phone] documented as of this encounter Visit Diagnoses Not on filedocumented in this encounter Discontinued Medications Medication Sig Discontinue Reason Start Date End Da te ondansetron (ZOFRAN) 4 mg tablet Take 4 mg by mouth 2 times daily as needed. 11/07/2019 07/15/2020 documented as of this encounter Care Teams Senior Staff Specialized Employment Relationship Specialty Start Date End Date Emigdio Veronica MD [address] [place] [phone] PCP - General Internal Medicine - Primary Care 05/22/20 02/21/24 documented as of this encounter
--- OUTSIDE RECORDS SUMMARY | 2024-11-22 17:22 | XMS_ITS | Encounter Summary ---
Author Organization [facility] Address [address] [place] [address] Care Team Providers Care Plant Superintendent Name Role Phone Emigdio Veronica MD Primary Care Provider + Reason for Visit * Reason Comments Leg Swelling Encounter Details Date Type Department Care Team (Late st Contact Info) Description 05/29/2020 10:45 EDT Office Visit [facility] - [place] [address] [place] [address] Emigdio Veronica MD [address] [place] [phone] Bilateral lower extremity edema (Primary Dx) Social History Tobacco Use Types Packs/Day Years Used Date Smoking Tobacco: Former Cigarettes 0.8 35 S tarted: 05/22/2020 Smokeless Tobacco: Never Tobacco Cessation:Counseling Given: No [...] 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 1 Tube 2 05/29/2020 06/23/2020 documented in this encounter Progress Notes * Emigdio Veronica MD - 05/29/2020 1045 EDT S: Tara Yun is a 59 y.o. female with PMHx of QUIROZ cirrhosis, pancytopenia, hypothyroidism, HUEY who presents with a CC: of worsening lower extremity edema Today Ms. Yun returns to clinic for worsening lower extremity edema. She was last seen by this provider one week prior to her current presentation for a NPV. At the time she had recently increased her lasix from 20 mg to 40 mg daily. She reports compliance with the lasix dose as well as her spirolactone 50 mg daily. She states she is not sedentary and is frequently working in her garden and arou nd her house. However she notes that her lower extremity edema is better in the morning and particularly worse at night / end of the day. She has not obtained compression stockings as of this time. She denies SOB, chest pain, wheezing, confusion, cough or abdominal distention. ROS as above Medications and history reviewed. Current Outpatient Medications: albuterol (ACCUNEB) 2.5 mg /3 mL (0.083 %) nebulizer solution albuterol 90 mcg/actuation inhaler diclofenac sodium (VOLTAREN) 1 % gel ERGOCALCIFEROL, VITAMIN D2, (VITAMIN D ORAL) ferrous gluconate (FERGON) 324 mg (38 mg iron) tablet furosemide (LASIX) 40 mg tablet LEVOTHYROXINE SODIUM (LEVOTHYROXINE ORAL) ondansetron (ZOFRAN) 4 mg tablet spironolactone (ALDACTONE) 25 mg tablet SYMBICORT 160-4.5 mcg/actuation HFA aerosol inhaler inhaler tamsulosin (FLOMAX) 0.4 mg capsule No current facility-administered medications for this visit. Facility-Administered Medications Ordered in Other Visits: albuterol (ACCUNEB) 2.5 mg /3 mL (0.083 %) nebulizer solution O: BP 90/50 (BP Cuff Location: Right arm, BP Patient Position: Sitting, BP Cuff Sizes: Adult, regular) Pulse 76 Comment: r Temp 36.8 ??C (98.2 ??F) (Tympanic) Resp 16 Wt 89.8 kg (198 lb) BMI 34.25 kg/m?? Gen: Fatigued appearing middle age female, NAD HEENT: EOMI, PERRL, oropharynx moist, conjunctiva pink, no scleral injection/ icterus Neck: no cervical lymphadenopathy, no JVD CV: RRR, no murmurs, rubs or gallops Pulm: CTAB, good air movement, no wheezes, rales, or rhonchi Abd: +BS, soft, NT, ND, hepatosplenomegaly noted Extrem: +1 pitting edema present in the bilateral lower extremities up to the knees, warm and well perfused Skin: No rashes or erythema, intact Recent Labs/Imaging: Reviewed in Epic A and P: Tara was seen today for leg swelling. Diagnoses and all orders for this visit: Bilateral lower extremity edema: Related to liver dysfunction. - GENERIC DME ORDER for compression stockings - BASIC METABOLIC PANEL (BMP); Future - Will follow-up in 3 weeks, if lower extremity edema remains poorly controlled and electrolyte sare stable would have a low threshold for increasing spirolactone to 100 mg daily. F/u: No follow-ups on file. Emigdio Veronica MD 05/31/2020 11:15 documented in this encounter Plan of Treatment Upcoming Encounters Date Type Department Care Team (Late st Contact Info) Description 01/04/2025 13:00 EST Office Visit [facility] Ophthalmology - [address] [place] [phone] Gagandeep Rome MD [address] [place] [address], [address] [place] [phone] 02/11/2025 13:30 EDT Telemedicine [facility] Hematology & Oncology - [facility] [address] [place] [address] Dana Padilla MD [address] [facility] 2 [place] [address] documented as of this encounter Results * (ABNORMAL) BASIC METABOLIC PANEL (BMP) (06/05/2020 [...] 06/05/2020 15:02 EDT 06/05/2020 15:02 EDT us Emigdio Veronica MD CHEMISTRY & BLOOD GAS OR DERABLES Final Result [facility] [address] [place] [address] documented in this encounter Visit Diagnoses Diagnosis Bilateral lower extremity edema- Primary Edema documented in this encounter Orders Equipment Count Last Ordered Date First Orde red Date GENERIC DME ORDER 1 05/29/2020 documented in this encounter Care Teams Plant Superintendent Relationship Specialty Start Date End Date Emigdio Veronica MD [address] [place] [phone] PCP - General Internal Medicine - Primary Care 05/22/20 02/21/24 documented as of this encounter
--- OUTSIDE RECORDS SUMMARY | 2024-11-22 17:23 | XMS_ITS | Encounter Summary ---
Author Organization [facility] Address [address] [place] [address] Care Team Providers Care Nitroglycerin Neutralizer Name Role Phone Alma Farfan MD Primary Care Provider [phone] Reason for Visit * Reason Comments Cystoscopy Encounter Details Date Type Department Care Team (Latest Contact Info) Description 02/18/2020 10:00 EDT Procedure visit [facility] - [facility] [address] [place] [address] Scope, Cystoscopy Gross hematuria (Primary Dx) Social History Tobacco Use Types Packs/Day Years Used Date Smoking Tobacco: Every Day Cigarettes 1 20 Smokeless Tobacco: Never Alcohol Use Standard [...] hearing? Answer Date of Assessment Author No 11/27/2019 6:36 Dana Alfaro RN * Are you blind or do you have serious difficulty seeing, even when wearing glasses? Answer Date of Assessment Author No 11/27/2019 6:36 Dana Alfaro RN * Do you have serious difficulty walking or climbing stairs? (5 years old or older) Answer Date of Assessment Author No 11/27/2019 6:36 Dana Alfaro RN * Do you have difficulty dressing or bathing? (5 years old or older) Answer Date of Assessment Author No 11/27/2019 6:36 Dana Alfaro RN * Because of a physical, mental, or emotional condition, do you have difficulty doing errands alone such as visiting a doctor's office or shopping? (15 years old or older) Answer Date of Assessment Author No 11/27/2019 6:36 Dana Alfaro RN documented as of this encounter Mental Status * Because of a physical, mental, or emotional condition, do you have serious difficulty concentrating, remembering, or making decisions? (5 years old or older) Answer Entry Date Author No 11/27/2019 6:36 Dana Alfaro RN documented in this encounter Progress Notes * Ruth Ruffin RN - 02/18/2020 1000 EDT See physician encounter documented in this encounter Plan of Treatment Upcoming Encounters Date Type Department Care Team (Late st Contact Info) Description 01/04/2025 13:00 EST Office Visit [facility] Ophthalmology - [address] [phone] Gagandeep Rome MD [address] [place] [address], [facility] 5 [place] [phone] 02/11/2025 13:30 EDT Telemedicine [facility] Hematology & Oncology - [address] [address] Dana Padilla MD [address] [place] [address], [address] [place] [phone] documented as of this encounter Visit Diagnoses Diagnosis Gross hematuria- Primary documented in this encounter Care Teams Nitroglycerin Neutralizer Relationship Specialty Start Date End Date Alma Farfna MD PCP - General 03/14/19 05/21/20 documented as of this encounter
--- OUTSIDE RECORDS SUMMARY | 2024-11-22 17:23 | XMS_ITS | Encounter Summary ---
Author Organization [facility] Address [address] [place] [address] Care Team Providers Care Nurse Charge Rn Name Role Phone Alma Farfan MD Primary Care Provider [phone] Reason for Referral * Sleep Study (Urgent) - Closed Specialty Diagnoses / Procedures Referred By Contac t Referred To Contact Diagnoses HUEY (obstructive sleep apnea) Procedures SPLIT NIGHT POLYSOMNOGRAM (DIAGNOSTIC POLYSOMNOGRAM WITH SPLIT TO CPAP/BIPAP TITRATION) Abdulaziz Burns MD Phone: tel: fax: Referral ID Status Reason Start Date Expiration Date Visits Re quested Visits Authorized [id number] Closed 04/28/2020 1 1 Reason for Visit * Reason Comments Shortness of Breath woke up w/ SOB * Auth/Cert Specialty Diagnoses / Procedures Referred By Contac t Referred To Contact Diagnoses Respiratory distress HUEY (obstructive sleep apnea) COPD exacerbation ([facility]) Dyspnea, unspecified type COPD exacerbation ([facility]) Referral ID Status Reason Start Date Expiration Date Visits Re quested Visits Authorized [id number] 1 1 Encounter Details Date Type Department Care Team (Late st Contact Info) Description 04/25/2020 23:39 EDT - 04/28/2020 17:29 EDT Hospital Encounter [facility] Neurosurgery Unit [address] [place], [place] [id number] Laurent Douglas MD [address] [facility], [facility], Level [address] [place] [phone] Todd Stone MD MPH [address] [facility] [address] [place] [phone] Brenda Dawson MD [address] [place] [phone] Jay Jay Gresham MD [address] [place] [phone] COPD exacerbation (HCC-CMS) (Primary Dx); Respiratory distress; Dyspnea, unspecified type; HUEY (obstructive sleep apnea); Acute congestive heart failure, unspecified heart failure type (HCC-CMS); Cirrhosis of liver without ascites, unspecified hepatic cirrhosis type (HCC-CMS); Pancytopenia (HCC-CMS); Hypothyroidism, unspecified type; Thrombocytopenia (HCC-CMS); Anxiety; Chronic respiratory failure with hypoxia (HCC-CMS); Recurrent major depressive disorder, remission status unspecified (HCC-CMS) Discharge Disposition: Home or Self Care [...] Sign Reading Time Taken Comments Blood Pressure 124/76 04/28/2020 1538 EDT Pulse 62 04/27/2020 1419 EDT Temperature 35.8 ??C (96.4 ??F) 04/28/2020 1405 EDT Respiratory Rate 20 04/28/2020 1405 EDT Oxygen Saturation 97% 04/28/2020 1405 EDT Inhaled Oxygen Concentration - - Weight 90.7 kg (200 lb) 04/28/2020 1538 EDT Height 165.1 cm (5' 5) 04/28/2020 1538 EDT Body Mass Index 33.28 04/28/2020 1538 EDT documented in this encounter Functional Status * Are you deaf or do you have serious difficulty hearing? Answer Date of Assessment Author No 04/26/2020 7:00 EDT Chao Rosario RN * Are you blind or do you have serious difficulty seeing, even when wearing glasses? Answer Date of Assessment Author No 04/26/2020 7:00 EDT Chao Rosario RN * Do you have serious difficulty walking or climbing stairs? (5 years old or older) Answer Date of Assessment Author No 04/26/2020 7:00 EDT Chao Rsoario RN * Do you have difficulty dressing or bathing? (5 years old or older) Answer Date of Assessment Author No 04/26/2020 7:00 EDT Chao Rosario RN * Because of a physical, mental, or emotional condition, do you have difficulty doing errands alone such as visiting a doctor's office or shopping? (15 years old or older) Answer Date of Assessment Author No 04/26/2020 7:00 EDT Chao Rosario RN documented as of this encounter Mental Status * Because of a physical, mental, or emotional condition, do you have serious difficulty concentrating, remembering, or making decisions? (5 years old or older) Answer Entry Date Author No 04/26/2020 7:00 EDT Chao Rosario RN documented in this encounter Discharge Summaries * Jay Jay Gresham MD - 04/28/2020 1612 EDT Medicine Discharge Summary Primary Care Provider: Alma Farfan Attending Physician: Jay Jay Gresham MD Admit Date: 04/25/2020 Discharge Date: 04/28/20 Disposition: Home or self care Reason for Admission: Shortness of breath Principal/Final Diagnosis: Dyspnea Additional Problems Managed in the Hospital Active Hospital Problems Diagnosis Date Noted ??? *Dyspnea 04/26/2020 ??? HUEY (obstructive sleep apnea) 04/26/2020 ??? Cirrhosis of liver ([facility]) 09/30/2017 Likely secondary to NAFLD ??? Obesity, Class II, BMI 35-39.9 09/30/2017 Lost about 80 lbs over last 2 years ??? Pancytopenia ([facility]) 07/18/2015 ??? Mild persistent asthma without complication 07/18/2015 Resolved Hospital Problems Diagnosis Date Noted Date Resolved ??? COPD exacerbation ([facility]) 04/26/2020 04/28/2020 ??? Respiratory distress 04/26/2020 04/28/2020 Principal Procedure: None Hospital Course: Tara Boothe is a 59 y.o. female with a PMHx significant for mild persistent asthma, CKD, cirrhosis and secondary pancytopenia, multiple abdominal surgeries HCV (ab pos, RNA neg),hypersplenism syndrome, chronic back pain, hypothyroid and drug seeking behavior who presented to the ED for shortness of breath concerning for asthma exacerbation vs anxiety attack confounded by untreated and yet to be formally diagnosed HUEY and possibly further complicated by CHF. In the ED: VS stable. Initially had acute hypoxic respiratory failure with desaturations to 85% andperiods of apnea requiring a Venturi mask. Subsequent SpO2 improved to 97%. CXR showed mild interstitial edema Treatments in ED: Albuterol 90 mcg x2, 0.5 mg iv Ativan x3, duonebx3, methyl pred 125 mg, Lasix 20 mg x1. Desaturation episodes resulting in venturi mask placement O2 saturations stable at 40% Labs notable for unremarkable BMP, negative trop, VBG O2 86%, pH 7.38, pCO2 41, pO2 52 Decompensated cirrhosis with hypervolemia, hypersplenism, and pancytopenia Patient was diuresed with addition of lasix with improvement in edema. DVT ppx was held due to low platelet count. Dyspnea Remains undifferentiated. Patient received albuterol prn, dulera, and steroid burst to treat for possible asthma exacerbation. Wheezing improved with duonebs. Overnight oximetry demonstrated need fornocturnal oxygen. Alpha 1 antitrypsin test was pending on discharge. Anxiety, insomnia Tapered off of trazodone and started on sertraline with hydroxyzine qhs prn for sleep. Condition at Discharge: Improved Clinical Issues Needing Follow-up: - Nocturnal dyspnea - would benefit from arranging sleep study. Referred to outpatient pulmonology. - Recommend outpatient cardiac work-up for CHF including stress test and echocardiogram. Allergies Allergen Reactions ??? Morphine Anaphylaxis ??? Sulfa (Sulfonamide Antibiotics) Anaphylaxis ??? Tylenol [Acetaminophen] Other (See Comments) Contraindication with medical hx ??? Aspirin Other (See Comments) Contraindication with medical hx ??? Injectafer [Ferric Carboxymaltose] ??? Lyrica [Pregabalin] Anxiety Insomnia ??? Reglan [Metoclopramide Hcl] Rash Immunization History Administered Date(s) Administered ? ? Pneumococcal Polysaccharide (PPSV23) Vaccine (PNEUMOVAX-23) =>2YO SQ/IM 07/18/2015 ? ? Td (Adult) 2 Lf Vaccine =>7yo IM 03/17/2019 Results Pending at Discharge Test results still pending from this admission None Follow-up appointments and procedures Amb Consult/Follow Up Pulmonary Reason for Request: Nocturnal dyspnea - has asthma, COPD, possible HUEY Authorizing Provider: Farhana Gonzalez DO Follow-up labs and tests Split Night Polysomnogram (Overnight Diagnostic Polysomnogram with Split to CPAP/BiPAP Titration) Complete by: As directed Process Instructions: 1) CALCULATION of [place] Sleepiness Scale can be done by using the scale in the Reference Link Document below. This information is necessary to obtain insurance pre-approval. 2) Please discuss CPAP/BiPAP with the patient prior to the study if you are ordering a SPLIT or Titration study. 3) RESULTS of the study will be sent to the Ordering Provider who is responsible for conveying the results to the patient. *Please note that Medicare/Private Insurance mandates evidence of PAP compliance within 1 to 3 months after PAP initiation. Authorizing Provider: Abdulaziz Burns MD Discharge Handoff Communication Contact was not made at the time of discharge Discharge Summary Completed By: Farhana Gonzalez DO 04/28/20 19:57 Family Medicine PGY-2 Pager #[phone] Attestation: I saw and evaluated the patient for discharge. I agree with the resident's/fellow's note. I personally spent 25 minutes in discharging services for this patient. Jay Jay Gresham MD 04/28/2020 20:00 Jay Jay Gresham MD documented in this encounter Discharge Instructions * Discharge Instr - AVS First Page* Farhana Gonzalez DO - 04/28/2020 15:45 EDT You were hospitalized for your difficulty breathing. We treated you by decreasing your fluid retention and using medications to treat asthma flares. Because of your lower oxygen levels at night we recommend you start using the oxygen overnight at 2 Liters. This will be delivered to you tonight or tomorrow. We also made a referral to the call circuit worker to further work up your shortness of breath. We added the following medications: - Lasix for fluid retention - Sertraline for anxiety - Hydroxyzine for insomnia (INSTEAD of the trazodone) - Lactulose (helps move stool through) and miralax (softens stool) for constipation - A few more days of prednisone to help with asthma flare documented in this encounter Medications at Time of Discharge albuterol 90 mcg/actuation inhaler Inhale 2 Puffs as directed every 4 hours as needed. 09/18/2021 ERGOCALCIFEROL, VITAMIN D2, (VITAMIN D ORAL) Take by mouth. 01/2021 ferrous gluconate (FERGON) 324 mg (38 mg iron) tablet Take 324 mg by mouth daily with breakfast. 04/23/2021 furosemide (LASIX) 20 mg tablet Take 1 Tab by mouth daily for 30 days. 30 Tab 04/29/2020 05/22/2020 hydrOXYzine (ATARAX) 25 mg tablet Take 1 Tab by mouth at bedtime as needed for up to 30 days for Anxiety. 30 Tab 04/28/2020 05/28/2020 lactulose (CHRONULAC) 20 gram/30 mL solution Take 30 mL by mouth 2 times daily as needed for up to 30 days for Other (constipation) . 1 Bottle 04/28/2020 05/28/2020 LEVOTHYROXINE SODIUM (LEVOTHYROXINE ORAL) Take 25 mcg by mouth daily. Unknown dose 11/03/2020 ondansetron (ZOFRAN) 4 mg tablet Take 4 mg by mouth 2 times daily as needed. 11/07/2019 07/15/2020 polyethylene glycol 3350 (MIRALAX) 17 gram packet Take 17 g by mouth daily for 30 days. 30 Packet 04/28/2020 05/28/2020 predniSONE (DELTASONE) 20 mg tablet Take 2 Tabs by mouth daily for 2 days. 4 Tab 04/29/2020 05/01/2020 sertraline (ZOLOFT) 25 mg tablet Take 1 Tab by mouth daily for 30 days. 30 Tab 04/29/2020 05/29/2020 spironolactone (ALDACTONE) 25 mg tablet Take 50 mg by mouth daily. 06/23/2020 SYMBICORT 160-4.5 mcg/actuation HFA aerosol inhaler inhaler Inhale 2 Puffs as directed daily. 10/05/2019 06/20/2020 tamsulosin (FLOMAX) 0.4 mg capsule Take 1 Cap by mouth daily. 30 Cap 11 02/19/2020 12/04/2020 documented as of this encounter Ordered Prescriptions Prescription Sig Dispense Quantity Refills Last Filled Start Date End Date sertraline (ZOLOFT) 25 mg tablet Take 1 Tab by mouth daily for 30 days. 30 Tab 04/29/2020 0 predniSONE (DELTASONE) 20 mg tablet Take 2 Tabs by mouth daily for 2 days. 4 Tab 04/29/2020 0 polyethylene glycol 3350 (MIRALAX) 17 gram packet Take 17 g by mouth daily for 30 days. 30 Packet 04/28/2020 0 lactulose (CHRONULAC) 20 gram/30 mL solution Take 30 mL by mouth 2 times daily as needed for up to 30 days for Other (constipation ). 1 Bottle 04/28/2020 0 hydrOXYzine (ATARAX) 25 mg tablet Take 1 Tab by mouth at bedtime as needed for up to 30 days for Anxiety. 30 Tab 04/28/2020 0 furosemide (LASIX) 20 mg tablet Take 1 Tab by mouth daily for 30 days. 30 Tab 04/29/2020 0 documented in this encounter Discharge Disposition Disposition Code Departure Means Destination Home or Self Care Car Home documented in this encounter Progress Notes * Leti Armenta - 04/28/2020 1507 EDT All information and script faxed to [facility] for [facility] O2 at . [facility] was pt's choice per choice form. Leti Armenta,RNCCm #[id number] * Farhana Gonzalez DO - 04/28/2020 0641 EDT Medicine Progress Note Service Date: 04/28/2020 Admit Date: 04/25/2020 23:39 Reason for Admission: 59 y.o. female admitted with a chief complaint of dyspnea and now with a principal diagnosis of acute on chronic respiratory failure. 24 Hour Events: - No acute events overnight Subjective/Objective Subjective Feeling anxious about handling her diagnoses, feels reassuring to learn what she can. Woke up last night feeling short of breath which improved by getting up and walking around. Has been urinating a lot with the diuretic, noticed swelling in legs has gone down. Has history of problem with constipation, has been having small hard stools with the initiation of lactulose. Denies chest pain, abdominal pain, n/v/d, headache, vision changes. Review of Systems A ten point review of systems was performed and was negative except for pertinent positives noted in the HPI Objective Vital Signs Temp: [35.6 ??C (96.1 ??F)-36.5 ??C (97.7 ??F)] (), Heart Rate: [71 BPM] (), Resp: [7-16] (), BP: (91-119)/(52-66) (), SpO2: [93 %-100 %] () Physical Exam Gen: sitting in her recliner, NAD, talkative. HEENT: NCAT, neck supple CV: RRR, no murmurs noted. Resp: Diffuse expiratory wheezes, no increased work of breathing. Abdomen: soft, non-tender, no masses noted. No peritonitic signs Extremities: WWP, trace edema on BLE Skin: no lesions, erythema or induration noted. Neuro: no focal neurologic deficits Psych: reactive affect, good eye contact. Is PICC or central line present? No, PICC/Central line not present. Medications Current Facility-Administered Medications: acetaminophen (TYLENOL) tablet 650 mg oral Q8H PRN albuterol inhaler 2 Puff inhalation Q4H PRN Cholecalciferol (Vitamin D3) tablet 400 Units oral DAILY ferrous gluconate (FERGON) tablet 324 mg oral DAILY WITH DINNER furosemide (LASIX) tablet 20 mg oral DAILY hydrOXYzine (ATARAX) tablet 25 mg oral AT BEDTIME PRN lactulose (CHRONULAC) 20 gram/30 mL solution 30 mL oral BID levothyroxine (SYNTHROID) tablet 25 mcg oral DAILY BEFORE BREAKFAST lidocaine (PF) 10 mg/mL (1 %) injection 2 mg intradermal PRN mometasone-formoterol (DULERA) 200-5 mcg/actuation inhaler 2 Puff inhalation BID ondansetron (ZOFRAN) solution 2 mg oral BID PRN predniSONE (DELTASONE) tablet 40 mg oral DAILY sertraline (ZOLOFT) tablet 25 mg oral DAILY spironolactone (ALDACTONE) tablet 50 mg oral DAILY tamsulosin (FLOMAX) capsule 0.4 mg oral DAILY traZODone (DESYREL) tablet 100 mg oral AT BEDTIME PRN Facility-Administered Medications Ordered in Other Encounters: albuterol (ACCUNEB) 2.5 mg /3 mL (0.083 %) nebulizer solution Labs CBC: Recent Labs 04/26/20 0014 04/26/20 1051 04/27/20 0544 WBC 1.36* 1.00* 2.48* RBC 3.85* 3.82* 3.91 HGB 11.8 11.5* 11.7 HCT 34.1* 33.8* 35.6 MCV 89 89 91 MCH 30.6 30.1 29.9 MCHC 34.6 34.0 32.9 PLT 41* 33* 40* NEUTROABS 0.95* 0.94* -- BMP: Recent Labs 04/26/20 0014 04/26/20 1051 04/27/20 0544 NA 136 135* 134* K 4.1 4.3 4.7 CL 104 102 103 CO2 21* 22 23 BUN 15 18 26 CREATININE 0.76 0.75 0.76 MG 1.8 -- -- Coags: Recent Labs 04/27/20 0544 PROTIME 15.8* INR 1.4* LFT: Recent Labs 04/26/20 1051 TBIL 0.9 ALKPHOS 70 AST 25 ALT 19 ABG: Recent Labs 04/26/20 0131 PHISTAT 7.38 PCOISTAT 41 POISTAT 52* POCTCO2 26 Cardiac Markers: Recent Labs 04/26/20 0014 TROPONINI <0.034 Imaging Reviewed: No new imaging. Assessment/Plan Assessment Tara Boothe is a 59 y.o. female with a PMHx significant for mild persistent asthma, CKD, cirrhosis and secondary pancytopenia, multiple abdominal surgeries HCV (ab pos, RNA neg), hypersplenism syndrome, chronic back pain, hypothyroid and drug seeking behavior who presents to the ED for shortness of breath concerning for asthma exacerbation vs anxiety attack confounded by Hx of untreated HUEY. Some wheezing on exam today so will continue prednisone, pursue nocturnal O2 if indicated, and advocate for sleep study with pulmonology outpatient. Plan Dyspnea: Multifactorial: anxiety attack, hypervolemia and untreated HUEY. ?asthma exacerbation as well. All complicated by several days of missed diuretic dosing as an outpatient. - Supplemental oxygen as needed - S/p overnight oximetry - Consider pulm follow up as an outpatient given unknown cause of nighttime dyspnea. - CLEAN OUT DRILLER spironolactone, added PO lasix in house. - Consider eval for heart failure - sertraline 25mg qd for anxiety component. - CLEAN OUT DRILLER albuterol inhaler prn. ?? Asthma: Exacerbation still not ruled out, wheezing on exam today. - continue prednisone - albuterol prn - dulera - Duonebs q8h prn. ?? Cirrhosis: c/p chronic portal vein thrombosis. - Low salt diet - Spironolactone 50 mg daily, lasix 20mg qd - edema improving - lactulose, titrated to 3 BM per day. ?? #Pancytopenia??secondary to cirrhosis??and hypersplenism: Bone marrow bx 04/2019 was unremarkable. Small varices on EGD 05/2019. Not on a beta warren. - daily CBC - hold DVT prophylaxis given thrombocytopenia. ?? 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 Gresham and FMS team Farhana Gonzalez DO 04/28/2020 6:41 Cosigned by Jay Jay Gresham MD at 04/28/2020 14:53 EDT Associated attestation - Jay Jay Gresham MD - 04/28/2020 1453 EDT Attestation: I saw and examined the patient with the resident/fellow 04/28/2020. I agree with the findings and plan of care documented in the resident's/fellow's note. Dyspnea Asthma +/- copd/huey/anxiety Review oximetry with PFT lab and home O2 accordingly Alpha 1 antitrypsin pending Stable for d/c - possible later today Jay Jay Gresham MD 04/28/2020 14:50 * Jolie Hook - 04/27/2020 1121 EDT Initial Case Management/Social Work Assessment and Discharge Plan/Readmission Risk Assessment REASON FOR ADMISSION: COPD exacerbation ([facility]) Patient understands reason for admission: Yes PATIENT CONTACT INFO VERIFIED: Yes PATIENT ADDRESS VERIFIED: Yes Type of housing (single family, condo, apartment, chcf, single room occupancy, [facility] funded hotel room, group fpc) - single family home, rents a room Who does the patient live with? 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 Shared w/couple Name of housing complex (ex [facility], [facility], etc)- NA Housing Authority/Managing Organization - NA Community Care Providers (field case manager, [facility] nurse, etc) name and contact information- NA LIVING ARRANGEMENTS AND ACCESSIBILITY ISSUES: Living Arrangements: Other (Comment)(rents a room in a home ) Levels: 1 Stairs to enter: 2 What in home social supports are available to the patient? Children, Friends / neighbors, Family member(s) Is 13/06 care available? No ADVANCED DIRECTIVES, POA &/or COLST IN PLACE: Healthcare Directive: No, patient does not have advance directive for healthcare treatment Information Provided on Healthcare Directives: No(Pt declined, I will do it another time) Information on Healthcare Directives Requested: No DIRECTIVES FOR FINANCES: Directive For Finances: No TRANSPORTATION: Transportation: Self, Family CULTURAL, BAPTIST and/or LANGUAGE factors affecting health care/discharge planning: Spiritual/Cultural Requests: None Any factors affecting health care/discharge planning?: No Insurance in Place: Yes Medical Insurance: Yes Type of insurance: Medicare, Medicaid Medicare type: A, B, D Medicaid Type: Community Referred to patient financial services: No Nutrition: DISCHARGE RISK ASSESSMENT: Polypharmacy, > 7 medications;Diagnosis of COPD Total # selected above: Score [...] 8 Patient expects to be discharged to: home w/home health SBIRT: SASQ (Single Alcohol Screening Question) How [...] Device: None COMMUNITY RESOURCES/SUPPORTS: Primary Care Provider: Alma Farfan PCP Verified: No(Pt is currently in the process of changing to a new PCP, see narrative for details) Specialists: None Type of Home Health Services: None DME Provider: Pharmacy: [id number] - [place], [place] - [address] [place] [id number] Home Health: Other: POST HOSPITAL TRANSITION PLAN: CM met with Pt at bedside. Pt is a&ox3, nad, reports she rents a room from an elderly couple who are like family. 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 Pt reports she is in the process of changing her PCP. Pt not happy with current PCP, Dr. Farfan,and wishes to establish with a new PCP after discharging. Per Pt, Registration Financial Advocates have provided Pt with a list of local PCP's accepting new Pt's. 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 Pt is not concerned about losing her housing if she cannot help aroundthe house because we are family. CM will continue to follow. Pt is currently on Observation status, notification has been signed by Pt. Jolie Hook RN BSN [employer] Worker Weekend Pager #[phone] JOLIE HOOK 04/27/2020 11:21 * Abdulaziz Burns MD - 04/27/2020 1053 EDT Medicine Progress Note Service Date: 04/27/2020 Admit Date: 04/25/2020 23:39 Reason for Admission: 59 y.o. female admitted with a chief complaint of dyspnea and now with a principal diagnosis of acute on chronic respiratory failure. 24 Hour Events: - overnight oximetry - treated for possible asthma exacerbation with methyl pred and prednisone Subjective/Objective Subjective Phyliss states that she is doing OK this AM after being awoken in her chair. Endorses mild chest tightness, trace edema, anxiety, overnight shortness of breath. Denies any chest pain, abdominal pain, severe headache, dysphagia. Has been able to eat without issue. Has long Hx of HUEY diagnosed in her 30s. States she has only had one or two asthma exacerbations inthe past requiring prednisone. Does note increased life stressors and care-taking for an elderly couple. Review of Systems A ten point review of systems was performed and was negative except for pertinent positives noted in the HPI Objective Vital Signs Temp: [35.4 ??C (95.7 ??F)-36.4 ??C (97.5 ??F)] (), Heart Rate: [76 BPM-94 BPM] (), Resp: [16-18] (), BP: (103-119)/(54-69) (), SpO2: [90 %-98 %] () Physical Exam Gen: sitting in her recliner, NAD, talkative. HEENT: NCAT, neck supple CV: RRR, no murmurs noted. Resp: CTAB bilaterally once patient told to stop groaning on exhalation. 5-7 second pauses noted while sleeping. Abdomen: soft, non-tender, no masses noted. No peritonitic signs Extremities: WWP, trace edema on BLE Skin: no lesions, erythema or induration noted. Neuro: no focal neurologic deficits Psych: reactive affect, good eye contact. Is PICC or central line present? No, PICC/Central line not present. Medications Current Facility-Administered Medications: acetaminophen (TYLENOL) tablet 650 mg oral Q8H PRN albuterol inhaler 2 Puff inhalation Q4H PRN Cholecalciferol (Vitamin D3) tablet 400 Units oral DAILY ferrous gluconate (FERGON) tablet 324 mg oral DAILY WITH DINNER furosemide (LASIX) tablet 20 mg oral DAILY hydrOXYzine (ATARAX) tablet 25 mg oral AT BEDTIME PRN lactulose (CHRONULAC) 20 gram/30 mL solution 30 mL oral BID levothyroxine (SYNTHROID) tablet 25 mcg oral DAILY BEFORE BREAKFAST lidocaine (PF) 10 mg/mL (1 %) injection 2 mg intradermal PRN mometasone-formoterol (DULERA) 200-5 mcg/actuation inhaler 2 Puff inhalation BID ondansetron (ZOFRAN) solution 2 mg oral BID PRN sertraline (ZOLOFT) tablet 25 mg oral DAILY spironolactone (ALDACTONE) tablet 50 mg oral DAILY tamsulosin (FLOMAX) capsule 0.4 mg oral DAILY traZODone (DESYREL) tablet 100 mg oral AT BEDTIME PRN Facility-Administered Medications Ordered in Other Encounters: albuterol (ACCUNEB) 2.5 mg /3 mL (0.083 %) nebulizer solution Labs CBC: Recent Labs 04/26/20 0014 04/26/20 1051 04/27/20 0544 WBC 1.36* 1.00* 2.48* RBC 3.85* 3.82* 3.91 HGB 11.8 11.5* 11.7 HCT 34.1* 33.8* 35.6 MCV 89 89 91 MCH 30.6 30.1 29.9 MCHC 34.6 34.0 32.9 PLT 41* 33* 40* NEUTROABS 0.95* 0.94* -- BMP: Recent Labs 04/26/20 0014 04/26/20 1051 04/27/20 0544 NA 136 135* 134* K 4.1 4.3 4.7 CL 104 102 103 CO2 21* 22 23 BUN 15 18 26 CREATININE 0.76 0.75 0.76 MG 1.8 -- -- Coags: Recent Labs 04/27/20 0544 PROTIME 15.8* INR 1.4* LFT: Recent Labs 04/26/20 1051 TBIL 0.9 ALKPHOS 70 AST 25 ALT 19 ABG: Recent Labs 04/26/20 0131 PHISTAT 7.38 PCOISTAT 41 POISTAT 52* POCTCO2 26 Cardiac Markers: Recent Labs 04/26/20 0014 TROPONINI <0.034 Imaging Reviewed: No new imaging. Assessment/Plan Assessment Tara Boothe is a 59 y.o. female with a PMHx significant for mild persistent asthma, CKD, cirrhosis and secondary pancytopenia, multiple abdominal surgeries HCV (ab pos, RNA neg), hypersplenism syndrome, chronic back pain, hypothyroid and drug seeking behavior who presents to the ED for shortness of breath concerning for asthma exacerbation vs anxiety attack confounded by Hx of untreated HUEY. Given lack of wheezing and good air movement, will D/C prednisone today and focus on possible nocturnal O2 and evaluation for CPAP. Plan Dyspnea: Multifactorial: anxiety attack, hypervolemia and untreated HUEY. ?asthma exacerbation as well. All complicated by several days of missed diuretic dosing as an outpatient. - Supplemental oxygen as needed - S/p overnight oximetry ORA. Will discuss with pulm for care going forward based on results. - Consider pulm follow up as an outpatient given unknown cause of nighttime dyspnea. - CLEAN OUT DRILLER spironolactone, added PO lasix in house. - Consider eval for heart failure - sertraline 25mg qd for anxiety component. - CLEAN OUT DRILLER albuterol inhaler prn. ?? Asthma: Unlikely exacerbation given exam today and rare need for steroid use through her life. - D/C prednisone. - albuterol prn - dulera ?? Cirrhosis: c/p chronic portal vein thrombosis - Low salt diet - Spironolactone 50 mg daily, lasix 20mg qd - edema improving - lactulose, titrated to 3 BM per day. ?? #Pancytopenia??secondary to cirrhosis??and hypersplenism: Bone marrow bx 04/2019 was unremarkable. Small varices on EGD 05/2019. Not on a beta warren. - daily CBC - hold DVT prophylaxis given thrombocytopenia. ?? 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 Patient discussed with Dr. Brenda Burns MD 04/27/2020 10:53 Cosigned by Brneda Dawson MD at 04/27/2020 22:01 EDT Associated attestation - Brenda Dawson MD - 04/27/2020 2201 EDT Attestation for inpatient progress note: I interviewed and examined this patient on the day of the above note and agree with the findings and plan of care documented in the resident's/fellow's note. Pt admitted with decompensated cirrhosis (hypervolemic) now diuresiing with addition of lasix with sever thrombocytopenia, acute asthma exacerbation, and high anxiety. Continues to be diffusely wheezing on exam. Overnight pulse oximetry revealed multiple hypoxic events overnight. Will need to arrange home oxygen prior to discharge. Would benefit from a sleep study, consider pulmonary consultationtomorrow for consideration while still in-house. Anxiety remains a component of Phyliss' symptoms but is much improved today with addition of sertraline and atarax. Will transition to inpatient status. Brenda Dawson MD Family Medicine Attending 04/27/2020 21:54 * Jodi Burroughs, - 04/27/2020 0609 EDT Respiratory Care Note: Overnight Pulse Oximetry study completed and study downloaded with copies sent to PFT lab and M6. Study completed on RA * Jolie Hook - 04/26/2020 1658 EDT CM Progress Note: CM attempted to deliver G[place] (Medicare Outpatient Observation Notice) to Pt however Pt was sound asleep and unable to complete form with CM. CM will try again at another time. 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 Weekend Pager #[phone] * Carmen Hough, - 04/26/2020 0157 EDT Respiratory Consult/Progress Note Indications for Respiratory therapy: SOB, hx of COPD Data Vitals: Heart Rate: 91 BPM, Resp: 13, SpO2: 99 % FIO2/O2 Device: O2 Flow Rate (L/min): 8 l/min, , O2 Device: Venturi mask, FIO2 %: 40 % RT Orders: pending Protocol Scoring: Bronchodilator/Inhalation Therapy Frequency Bronchodialator - Clinical Indications: History of COPD Breath Sounds: Any abnormal BS decreased Response: Mild response, increase subjective per RECORDS MANAGEMENT ENGINEER Pulse: <100 Resp Rate: 18-25 SOB: At rest Total Score: 5 Airway Clearance Therapy Frequency Airway Clearance - Clinical Indications: No clinical indications Breath Sounds: Clear / diminished Sputum: Small (tsp) / None Consistency: None Cough Effort: Strong/ non-productive Color: None Total Score: 0 Hyperinflation Therapy Frequency Hyperinflation - Clinical Indications: No clinical indications Breath Sounds: Clear Surgery: No X-Ray / Atelectasis: No O2 Requirements: 2-4 L above baseline Mobility Status: Mobile / at baseline Total: 2 Action/Events Pt's arrival to ER anxious appearing, tachypneic saturating 100% on room air. Initially given 2 puffs albuterol prior to provider at bedside. Pt breath sounds diminished, duoneb x2 given along with ativan. Following ativan given, pt breathing more comfortable. Periods of apnea noted. Desaturated down to 85%. Placed on 40% venti-mask. MD Douglas at bedside. 0130: ABG attempt x2 unable to obtain. VBG done; results 7.38/41. Response/Results Pt home routine is BID flovent and prn albuterol. Will need help with inhalers. No home oxygen requirement. Suspected undiagnosed HUEY but has not had a sleep study yet. CARMEN HOUGH, 04/26/20 * Arlette Auguste RT - 04/26/2020 0120 EDT ABG attempt X 2 on left unable to get, VBG drawn by RN. documented in this encounter H&P Notes * Hiren Strickland MD - 04/26/2020 0315 EDT Medicine Admission History & Physical Service Date: 04/26/2020 Admit Date: 04/25/2020 23:39 Primary Care Provider: Alma Farfan Chief Complaint: shortness of breath HPI Tara Boothe is a 59 y.o. female with a PMHx of history of mild persistent asthma, CKD, cirrhosis and secondary pancytopenia, multiple abdominal surgeries HCV (ab pos, RNA neg), hypersplenism syndrome, chronic back pain, hypothyroid and drug seeking behavior who presents to the ED for shortness of breath. She has been seen multiple times in the ED recently with similar presentations recently. The patient is somnolent during my interaction after receiving a few doses of Ativan for anxiety. History obtained was through chart review. She has had difficulty lying flat and wakes up from sleep coughing and choking. Most recent ED visit on 04/19 did not result in hospitalization. COVID-19 testing was negative at the time. CT PE protocol Chest was negative for PE. There has been some concern that she does have HUEY for some time. She feels that she ???cannot get air in?? and then becomes quite anxious. She also recently ran out of her diuretic prescription. From April 19 ED visit: ???We placed end-tidal capnography, and her hypoxia does appear to be associated with her falling asleep, and with her minute ventilation dropping, and with intermittent apnea.?? In the ED: VS stable. Desaturations to 85% with periods of apnea noted resulting in Venturi mask placement and subsequent SpO2 at 97%. CXR showed mild interstitial edema Treatments in ED: Albuterol 90 mcg x2, 0.5 mg iv Ativan x3, duonebx3, methyl pred 125 mg, Lasix 20 mg x1. Desaturation episodes resulting in venturi mask placement O2 saturations stable at 40% Labs notable for unremarkable BMP, negative trop, VBG O2 86%, pH 7.38, pCO2 41, pO2 52 Review of Systems ROS limited by somnolent patient Past Medical History: Diagnosis Date ??? Anemia ??? Anxiety ??? Asthma ??? Bleeding disorder (HCC-CMS) ??? Bursitis right shoulder ??? C. difficile colitis 07/25/2015 Hospitalized after kidney stone removal ??? Chronic kidney disease ??? Cirrhosis of liver (HCC-CMS) ??? Clotting disorder (HCC-CMS) ??? Depression ??? Drug-seeking behavior Per Dr Amelia Tijerina and notes from [facility] patient misconstrued information to several [...] History Tobacco Use ??? Smoking status: Current Every Day Smoker Packs/day: 0.50 Years: 20.00 Pack years: 10.00 ??? Smokeless tobacco: Never Used Substance Use Topics ??? Alcohol use: No Alcohol/week: 0.0 standard drinks Family History Problem Relation Age of Onset ??? Cancer Maternal Grandmother ??? Diabetes Mother ??? Coronary Artery Disease Father ??? Clotting Disorder Father ??? Diabetes Brother Current Outpatient Medications: albuterol 90 mcg/actuation inhaler Inhale 2 Puffs as directed every 4 hours. ERGOCALCIFEROL, VITAMIN D2, (VITAMIN D ORAL) Take by mouth. ferrous gluconate (FERGON) 324 mg (38 mg iron) tablet Take 324 mg by mouth 3 times daily with meals. LEVOTHYROXINE SODIUM (LEVOTHYROXINE ORAL) Take 25 mcg by mouth daily. Unknown dose ondansetron (ZOFRAN) 4 mg tablet Take 4 mg by mouth 2 times daily as needed. spironolactone (ALDACTONE) 25 mg tablet Take 50 mg by mouth daily. SYMBICORT 160-4.5 mcg/actuation HFA aerosol inhaler inhaler Inhale 2 Puffs as directed daily. tamsulosin (FLOMAX) 0.4 mg capsule Take 1 Cap by mouth daily. traZODone (DESYREL) 100 mg tablet Take 150 mg by mouth at bedtime as needed. Allergies Allergen Reactions ??? Morphine Anaphylaxis ??? Sulfa (Sulfonamide Antibiotics) Anaphylaxis ??? Tylenol [Acetaminophen] Other (See Comments) Contraindication with medical hx ??? Aspirin Other (See Comments) Contraindication with medical hx ??? Injectafer [Ferric Carboxymaltose] ??? Lyrica [Pregabalin] Anxiety Insomnia ??? Reglan [Metoclopramide Hcl] Rash Objective Vitals Temp: [36.6 ??C (97.9 ??F)-36.7 ??C (98.1 ??F)] (), Heart Rate: [86 BPM-98 BPM] (), Pulse: [86-99] (), Resp: [13-32] (), BP: (103-122)/(53-76) (), SpO2: [94 %- 100 %] (), O2 Flow Rate (L/min): 8 l/min Numeric Pain Level (Scale 1-10): -- Weight: Weight : 90.7 kg (200 lb) Body mass index is 33.28 kg/m??. Physical Exam General: Somnolent, breathing comfortably with ventimask on, asleep HEENT: Normocephalic, atraumatic, oropharynx clear, mucous membranes moist, CN grossly intact, PERRL Lungs: Clear to auscultation bilaterally, no wheezes, rales, or rhonchi Heart: Regular rate and rhythm, no murmur, click, rub or gallop Abdomen: Normoactive bowel sounds. Soft, non-tender, non-distended; no masses, no organomegaly : No Carl Extremities: Warm, atraumatic, no cyanosis. Trace LE edema to the bilateral ankle. Pulses: 2+ and symmetric DP and PT Skin: Skin color, texture, turgor normal. No rashes or lesions Neurologic: Rouses to voice Pressure Ulcer Present on admission? No Labs I have personally reviewed Recent Labs 04/26/20 0014 WBC 1.36* RBC 3.85* HGB 11.8 HCT 34.1* MCV 89 MCH 30.6 MCHC 34.6 PLT 41* NEUTROABS 0.95* Recent Labs 04/26/20 0014 NA 136 K 4.1 CL 104 CO2 21* BUN 15 CREATININE 0.76 MG 1.8 Recent Labs 04/26/20 0014 TROPONINI <0.034 Recent Labs 04/26/20 0131 PHISTAT 7.38 PCOISTAT 41 POISTAT 52* POCTCO2 [address] Angio Chest Pe Protocol Result Date: 04/19/2020 CT ANGIO CHEST PE PROTOCOL 04/19/2020 4:05 PM Clinical History/Comments: Shortness of breath Technique: A contrast-enhanced helical CT acquisition of the chest from apices through the lung bases was performed with a reconstructed slice thickness of 0.9 mm with overlapping 0.45 mm intervals followingthe intravenous administration of 75-100 cc of 350-370 mg% nonionic contrast injected at a rate of 4-5 cc/second. A small test bolus was used for image acquisition. Scans were reviewed on a dedicatedHuddler workstation for analysis. The radiologist reviewed and/or adjusted the images for the 3D/MIP rendering on an independent workstation, as necessary, prior to interpretation. Exam description: CTAof the chest Comparison: CT angiogram chest November 26, 2019. Findings: Opacification of the pulmonary vasculature is good. No acute or chronic emboli are seen within the pulmonary arterial vasculature. Lower neck: No abnormalities. Chest wall soft tissues: No abnormalities. Mediastinum and leobardo: Stable more numerous than normal mediastinal lymph nodes as well as mild stranding of the superior mediastinal fat in the prevascular region (#79). Additional stable anterior juxtaphrenic lymph nodes (axial #308). The esophagus appears normal. Heart and mediastinal vasculature: The left ventricle measures at the upper limits of normal. Coronary and aortic atherosclerosis. Large airways: The mild diffuse large airways thickening. Lungs: There is interlobular septal thickening within the lower lobesand prominence of the fissures. Linear regions of atelectasis/scar within the lingula and anterior segment of the left upper lobe. There is a cyst within the anterior segment of the left upper lobe as well (#183). Pleura: No significant abnormalities. Upper abdomen (limited to upper abdomen, not optimized for abdominal imaging): Redemonstration of cirrhosis, findings of portal hypertension and hepatosplenomegaly. Bones: No significant abnormalities. 1. No evidence of pulmonary embolus. 2. Mild hydrostatic pulmonary edema and left ventricular chamber measuring at the upper limits of normal.. 3. Known cirrhosis and findings of portal hypertension within the upper abdomen. I have personally reviewed the images and the above interpretation and agree with the findings. Xr Chest Portable 1 View Result Date: 04/26/2020 PRELIMINARY RESIDENT REPORT XR CHEST PORTABLE 1 VIEW 04/26/2020 12:10 AM CLINICAL HISTORY/COMMENTS: Dyspnea. COMPARISON: CT PE and chest radiograph 04/19/2020. FINDINGS: Single portable AP view ofthe chest. Lines/tubes: None Soft tissues, bones and extrathoracic findings: No significant abnormality. Cardiac and mediastinal contours: Cardiac silhouette is normal in size. Lungs: There is redemonstration of vasculature toward the lung apices with indistinctness of the bronchovascular markings in the lung bases and thickened interlobular septae, consistent with mild interstitial pulmonary edema. No coalescent opacity is seen. Pleura: No visible pleural abnormalities. Mild pulmonary interstitial edema. Xr Chest Portable 1 View Result Date: 04/19/2020 XR CHEST PORTABLE 1 VIEW 04/19/2020 11:20 AM CLINICAL HISTORY/COMMENTS: shortness of breath COMPARISON: Chest radiograph October 03, 2019, chest CT November 26, 2019. FINDINGS: Single portable AP view of the chest. Lines/tubes: None Soft tissues, bones and extrathoracic findings: Degenerative changesseen in the bilateral acromioclavicular joints. No acute osseous abnormality. Cardiac and mediastinal contours: Normal. Lungs: The lungs are clear. Pulmonary vascularity is normal. Pleura: No visiblepleural abnormalities. 1. No radiographic evidence of acute cardiopulmonary disease. Us Lower Venous Duplex Result Date: 04/19/2020 US LOWER VENOUS DUPLEX (DVT) BILATERAL 04/19/2020 3:15 PM SIGNS AND SYMPTOMS/COMMENTS: leg swelling COMPARISON: No relevant comparison. TECHNIQUE: Grayscale, cine, color Doppler, and spectral tracing images were obtained of the deep venous system of both lower extremities. FINDINGS: RIGHT LEG: Deep veins above the knee: The external iliac vein, common femoral vein, proximal through distal femoral vein, and popliteal vein all demonstrate normal Doppler flow/waveforms and compression. Deep veins below the knee: The posterior tibial and peroneal veins demonstrate normal Doppler flow. Superficial veins: The proximal portion of the greater saphenous vein demonstrates normal Doppler flow/waveformsand compression. Other: No evidence of subcutaneous edema. LEFT LEG: Deep veins above the knee: Theexternal iliac vein, common femoral vein, proximal through distal femoral vein, and popliteal vein all demonstrate normal Doppler flow/waveforms and compression. Deep veins below the knee: The posterior tibial and peroneal veins demonstrate normal Doppler flow. Superficial veins: The proximal portion of the greater saphenous vein demonstrates normal Doppler flow/waveforms and compression. Other: No evidence of subcutaneous edema. No evidence of deep venous thrombosis in either lower extremity. I have personally reviewed the images and the above interpretation and agree with the findings. Poct Us Ed Thoracic Result Date: 04/26/2020 [facility] - Ultrasound Exam Date: 04/26/2020 Exam Type: POCT US ED THORACIC Newspaper Columnist: Laurent Douglas MD Attending: N/A Worksheet: [id number] (POCT US ED THORACIC) Exam Information: Exam type: Clinically indicated Indication(s) for Exam: The exam was performed with the following indications: Dyspnea Views: Right lateral / inferior thorax: adequate Right anterior / superior thorax: ad equate Left lateral / inferior thorax: adequate Left anterior / superior thorax: adequate Findings:Lung sliding: present Interstitium: a-lines: present Interstitium: b-lines: present Inferior / lateral region: present (greater than 3 per view) Pleural effusion: absent Lung sliding: present Interstitium: a- lines: present Interstitium: b-lines: present Inferior / lateral region: present (greater than 3 per view) Pleural effusion: absent Interpretation: Alveolar interstitial syndrome: Diffuse Other: mild interstitial edema lower lung godwin Confirmatory study: What confirmatory study was done?:Xray Confirmatory study findings: mild edema US POCUS Preliminary Signature: POCUS Preliminary Signa ture: Not signed Physician Signature: I review and approve of the documentation above.: Signed by Laurent Douglas MD on Sunday, April 26, 2020 at 12:51:19 AM This exam was performed and interpreted by the [facility] ED Staff Assessment Tara Boothe is a 59 y.o. female with a PMHx significant for mild persistent asthma, CKD, cirrhosis and secondary pancytopenia, multiple abdominal surgeries HCV (ab pos, RNA neg), hypersplenism syndrome, chronic back pain, hypothyroid and drug seeking behavior who presents to the ED for shortness of breath concerning for asthma exacerbation vs anxiety attack confounded by untreated and yet to be formally diagnosed HUEY. Respiratory status has improved after multiple duonebs, steroids and supplemental oxygen. Plan Dyspnea: Multifactorial: possible asthma exacerbation, anxiety attack, hypervolemia and suspected untreated HUEY. She's been observed desaturating when falling asleep with periods of apnea but has nothad formal polysomnography. Patient indicated that she ran out of her diuretic a few days ago. S/p Albuterol 90 mcg x2, 0.5 mg iv Ativan x3, duonebx3, methyl pred 125 mg, Lasix 20 mg x1 in the ED - Supplemental oxygen as needed - RT consulted - Overnight oximetry - Pulm consult may be worthwhile given multiple recent ED visits possible lack of follow-up in outpatient realm. - Consider psychology consult for anxiety - Resume diuretic - Consider eval for heart failure Asthma: Unclear if she is truly in the midst of exacerbation for the aforementioned reasons. However, she received 125 methylpred in the ED. May merit prednisone burst. - Consider prednisone 40 mg for 4 days based on clinical improvement in the am - albuterol prn - dulera Cirrhosis: c/p chronic portal vein thrombosis - Low salt diet - Spironolactone 50 mg daily - Consider starting lasix #Pancytopenia secondary to cirrhosis and hypersplenism: Bone marrow bx 04/2019 was unremarkable. Small varices on EGD 05/2019. Not on a beta warren. - am CBC w/ diff - watch ANC - hold DVT prophylaxis #Insomnia - mining captain trazodone 150mg qhs prn VTE Prophylaxis Seqential Compression Device and Compression Stockings Code: Full Discharge Plan Uncertain at this time Consults None Admission Status Observation. Anticipated duration of hospitalization is less than two midnights. Discussed with Dr. Chase Strickland MD 04/26/2020 3:15 Cosigned by Todd Stone MD at 04/26/2020 4:44 EDT Associated attestation - Todd Stone MD M[facility] - 04/26/2020 0444 EDT Attending Attestation I have interviewed and examined the patient. I personally reviewed laboratories studies, radiographic studies, ECG, and prior records. I discussed the case with: Dr. Strickland. I agree with the findings and plan of care as documented in the note above. Difficult to obtain reliable history as patient keeps dozing off (secondary to ativan received in ED due to severe anxiety), needs to obtain better history once more fully awake and that will help guide management. Probably worth getting pulm eval to assist given these are now repeated episodes without a clear etiology - hard to ascertain whether this is HUEY vs CHF vs COPD or some combination - she was treated for all three on admission with subsequent clinical improvement. Saturating well on venitmask and tolerating well, can likely deescalate to nasal cannula later this morning. To decide later today regarding further doses of diuretics and solumedrol, holding for now. Notably, COVID seems unlikely given negative test on 04/19 and again today and because of how quick the onset was (as well as absence of fever/chills). Todd Stone MD 04/26/2020 3am documented in this encounter Procedure Notes * Jovani Restrepo MD - 04/28/2020 2337 EDTProcedure(s): NOCTURNAL OXIMETRY (SLEEP LAB USE ONLY) Pre-Procedure Diagnose(s): Nocturnal hypoxia Post-Procedure Diagnose(s): Nocturnal hypoxia [facility] Overnight Oximetry Interpretation Worksheet [facility] [address] [facility] [id number] Patient Name: Tara Boothe Date of : 1960 Age: 59 y.o. Sex: female BMI: Body mass index is 33.28 kg/m??. Ordering Provider: Dr. Love Testing Date: 04/26/20 Data Summary: Oximetry was recorded for 8 hours and 48 minutes, from 21:08 to 05:56, with the patient on Room air. The average oxygen saturation was 90.4%. The lowest oxygen saturation was 76%. The oxygen desaturation index (RENATO) was 18.4 events per hour. The time spent equal to or below 88% saturation was 51 minutes and 56 seconds. Oxygen saturations abruptly decreased and increased in a periodic fashion suggestive of obstructiveor central sleep apnea. Interpretation: Consider re-study on supplemental oxygen, if clinically indicated. Consider polysomnogram or other sleep test to evaluate for sleep apnea, if clinically indicated. Full report of scanned results available in Chart Review Scans tab. Physician Interpreting Test: JOVANI RESTREPO MD 04/29/2020 14:00 Attending: Dr. Ordaz Cosigned by Yolanda Ordaz MD at 05/27/2020 0:55 EDT documented in this encounter ED Notes * Beba Long RN - 04/26/2020 9716 EDT Side rails and handles of stretcher wiped down. Venturi mask changed to nasal canula for transport to inpatient unit. SpO2 100% on 2L/min via NC. Mask applied to patient. Clean sheet placed over patient. Max 6 staff transported patient to unit, accompanied by Security. * Beba Long RN - 04/26/2020 0049 EDT Patient placed on Venturi mask at 40% FiO2 on 8L/min. * Laurent Douglas MD - 04/26/2020 0033 EDTAssociated Order(s): Critical Care DOS: 04/26/2020 Scribe Attestation: This documentation is recorded by Sarahi Miller acting as Scribe under the directionand presence of Laurent Douglas MD. Laurent Douglas MD: I personally performed the services recorded by the scribe in my presence. Iconfirm the scribe's documentation has been reviewed by me to accurately and completely record my work, treatment, procedures, and medical decision making. Chief Complaint Patient presents with ??? Shortness of Breath woke up w/ SOB HPI Tara Boothe is a pleasant 59 y.o. female who presents to the ED today with a chief complaint ofshortness of breath. The patient has past medical history significant for COPD, bleeding disorder, cirrhosis of the liver, CKD, anxiety, and depression. Patient presents to the ED with complaints of acute-onset severe respiratory distress upon waking up this evening. On records review, she was evaluated in the ED on 04/19/20 for similar symptoms, at which time she had a negative COVID- 19 test, had CT Chest PE Protocol which was negative for PE, and was noted to desaturate while sleeping; she was thought to have HUEY at that time. She states that she feels like she is unable to get air in while breathing. She reports that she recently ran out ofher diuretic prescription. Patient denies CP. History was provided by: the patient, EMS, and medical records; the patient's history was limited secondary to her respiratory distress. Patient's pertinent PMH, FH, and SH were reviewed and updated PRN. ROS Review of Systems Unable to perform ROS: Severe respiratory distress Respiratory: Positive for shortness of breath. Cardiovascular: Negative for chest pain. The patient???s past medical, family, and social history was reviewed and updated as needed. Allergies Allergen Reactions ??? Morphine Anaphylaxis ??? Sulfa (Sulfonamide Antibiotics) Anaphylaxis ??? Tylenol [Acetaminophen] Other (See Comments) Contraindication with medical hx ??? Aspirin Other (See Comments) Contraindication with medical hx ??? Injectafer [Ferric Carboxymaltose] ??? Lyrica [Pregabalin] Anxiety Insomnia ??? Reglan [Metoclopramide Hcl] Rash Physical Exam Vital Signs Temp: 36.6 ??C (97.9 ??F) Temp src: Tympanic Pulse: 99 Heart Rate: 97 BPM Resp: (!) 32 SpO2: 100 % BP: 103/53 BP Device: BP Machine BP Patient Position: Sitting BP Cuff Location: Right arm O2 Device: None (Room air) Physical Exam Constitutional: She appears well-developed. She appears ill. She appears distressed. Anxious-appearing. HENT: Head: Normocephalic and atraumatic. Neck: Normal range of motion. Cardiovascular: Tachycardia present. Tachycardic. Pulmonary/Chest: Accessory muscle usage present. Tachypnea noted. She is in respiratory distress. She has decreased breath sounds. Only able to speak in 3-word phrases. Abdominal: Soft. She exhibits no distension. There is no tenderness. Musculoskeletal: Normal range of motion. Mild pedal edema. Neurological: She is alert. Skin: She is diaphoretic. Psychiatric: She has a normal mood and affect. Nursing note and vitals reviewed. Laboratory Results Labs Reviewed COMPLETE BLOOD COUNT AND DIFFERENTIAL - Abnormal Result Value Status WBC 1.36 (*) Final RBC 3.85 (*) Final Hemoglobin 11.8 Final HCT 34.1 (*) Final MCV 89 Final MCH 30.6 Final MCHC 34.6 Final RDW-CV 13.9 Final RDW-SD 44.9 Final PLT 41 (*) Final MPV 10.8 Final Type of Differential: Manual Final ELECTROLYTES - Abnormal Sodium 136 Final Potassium 4.1 Final Chloride 104 Final CO2 Total 21 (*) Final DIFFERENTIAL, AUTOMATED MANUAL - Abnormal Neutrophils 69.6 Final Lymphocytes 24.3 Final Monocytes 5.2 Final Basophils 0.9 Final Schistocytes Final Value: Increased schistocytes are seen but less than 1% (1+) of the RBCs [place] Bodies Present in <2% of RBCs Final Absolute Neutrophils 0.95 (*) Final Absolute Lymphocytes 0.33 (*) Final Absolute Monocytes 0.07 (*) Final Absolute Basophils 0.01 Final COMPLETE BLOOD COUNT - Abnormal WBC 1.00 (*) Final RBC 3.82 (*) Final Hemoglobin 11.5 (*) Final HCT 33.8 (*) Final MCV 89 Final MCH 30.1 Final MCHC 34.0 Final RDW-CV 13.9 Final RDW-SD 44.9 Final PLT 33 (*) Final MPV 10.8 Final ELECTROLYTES - Abnormal Sodium 135 (*) Final Potassium 4.3 Final Chloride 102 Final CO2 Total 22 Final DIFFERENTIAL, AUTOMATED MANUAL - Abnormal Neutrophils 93.9 Final Banded Neutrophils 2.6 Final Lymphocytes 3.5 Final Absolute Neutrophils 0.94 (*) Final Absolute Bands 0.03 Final Absolute Lymphocytes 0.04 (*) Final COMPLETE BLOOD COUNT - Abnormal WBC 2.48 (*) Final RBC 3.91 Final Hemoglobin 11.7 Final HCT 35.6 Final MCV 91 Final MCH 29.9 Final MCHC 32.9 Final RDW-CV 13.9 Final RDW-SD 46.6 Final PLT 40 (*) Final MPV 10.6 Final ELECTROLYTES - Abnormal Sodium 134 (*) Final Potassium 4.7 Final Chloride 103 Final CO2 Total 23 Final PROTIME - Abnormal I.N.R. 1.4 (*) Final Pro Time 15.8 (*) Final Narrative: Moderate Intensity Coumadin INR = 2.0-3.0 Adjustments in anticoagulant therapy dose should be based on the INR and NOT on the Protime. COMPLETE BLOOD COUNT - Abnormal WBC 2.14 (*) Final RBC 3.81 (*) Final Hemoglobin 11.6 Final HCT 34.8 (*) Final MCV 91 Final MCH 30.4 Final MCHC 33.3 Final RDW-CV 14.3 Final RDW-SD 47.5 Final PLT 37 (*) Final MPV 10.6 Final BUN - Abnormal BUN 29 (*) Final PROTIME - Abnormal I.N.R. 1.3 (*) Final Pro Time 15.4 (*) Final Narrative: Moderate Intensity Coumadin INR = 2.0-3.0 Adjustments in anticoagulant therapy dose should be based on the INR and NOT on the Protime. TSH - Abnormal TSH 6.09 (*) Final Narrative: The results of this assay can be falsely lowered due to the consumption of Biotin. POCT BLOOD GAS, EG6 I-STAT - Abnormal pH, i-STAT 7.38 Final pCO2, i-STAT 41 Final pO2, i-STAT 52 (*) Final TCO2, i-STAT 26 Final O2 Saturation, i-STAT 86 (*) Final Base Deficit, i-STAT 1 Final Sample Source VENOUS Final Tech ID [id number] Final Comment (EG6) Final Value: Test Performed by Respiratory. For non-arterial reference ranges, please see ISTAT procedure BUN - Normal BUN 15 Final CREATININE - Normal Creatinine 0.76 Final eGFR 86 Final TROPONIN I - Normal Troponin I <0.034 Final Narrative: The results of this assay can be falsely lowered due to the consumption of Biotin. MAGNESIUM - Normal Magnesium 1.8 Final SCREENING GLUCOSE - Normal Glucose, Screening 87 Final BUN - Normal BUN 18 Final CREATININE - Normal Creatinine 0.75 Final eGFR 88 Final AST - Normal AST 25 Final ALT - Normal ALT 19 Final BILIRUBIN, TOTAL - Normal Bilirubin, Total 0.9 Final ALKALINE PHOSPHATASE - Normal Alkaline Phosphatase 70 Final BUN - Normal BUN 26 Final CREATININE - Normal Creatinine 0.76 Final eGFR 86 Final ELECTROLYTES - Normal Sodium 136 Final Potassium 4.4 Final Chloride 102 Final CO2 Total 28 Final CREATININE - Normal Creatinine 0.86 Final eGFR 74 Final ALPHA 1 ANTITRYPSIN - Normal Alpha 1 Antitrypsin 149 Final T4 FREE - Normal T4, Free 0.9 Final COVID-19 TESTING COVID-19 Result Negative Final Performing Lab [facility] Lab Final COVID-19 TEST [facility] PCR EXTRA BLOOD DRAW (RAINBOW) Narrative: The following orders were created for panel order EXTRA BLOOD DRAW (RAINBOW). Procedure Abnormality Status --------- ------ HOLD BLUE TOP[] Final result HOLD GREEN TOP[] Final result HOLD LAVENDER TOP[] Final result HOLD SST[] Final result Please view results for these tests on the individual orders. HOLD BLUE TOP Hold Hold Final HOLD GREEN TOP Hold Hold Final HOLD LAVENDER TOP Hold Hold Final HOLD SST Hold Hold Final Patient had labs that were reviewed independently by myself, significant for VBG of 7.38 with CO2 of 41. COVID-19, troponin, CBC and differential, and electrolyte results were pending on admission. Procedures Critical Care Performed by: Laurent Douglas MD Authorized by: Laurent Douglas MD Critical care provider statement: Critical care time (minutes): 48 Critical care start time: 04/25/2020 23:42 Critical care end time: 04/26/2020 0:30 Critical care time was exclusive of: Separately billable procedures and treating other patients andteaching time Critical care was necessary to treat or prevent imminent or life-threatening deterioration of the following conditions: Respiratory failure Critical care was time spent personally by me on the following activities: Blood draw for specimens, development of treatment plan with patient or surrogate, discussions with primary provider, pulse oximetry, re-evaluation of patient's condition, examination of patient, ordering and performing treatments and interventions, ordering and review of laboratory studies and ordering and review of radiographic studies ED Course A medical screening was performed. The patient is a 59 y.o. female with a history of COPD, bleeding disorder, cirrhosis of the liver, CKD, anxiety, and depression who presents to the ED with sudden-onset shortness of breath since . Physical exam was significant for: anxious-appearing, tachycardic, lungs diminished, in respiratorydistress, only able to speak in 3-word phrases, diaphoretic, with mild pedal edema. Differential diagnosis includes but is not limited to COPD/asthma exacerbation, CHF, HUEY, or anxiety. The patient had an EKG which was independently reviewed and interpreted by me. (Sinus rhythm at 98 BPM). Limited Thoracic Bedside Ultrasound: Findings include normal a-lines, mild interstitial edema in the inferior lung godwin, and no pleural effusions. Images obtained, reviewed, and interpreted independently by myself. Please see formal report in the [facility] Images section. Images saved in PACS. The patient had a Portable Chest X-Ray which was significant for mild pulmonary interstitial edema.Patient had X-Ray that was obtained, reviewed, and interpreted by myself along with a radiologist. Please see radiology report for further details. 2352: The patient was treated with 2 inhaled 90 mcg doses of albuterol. 0003: The patient was treated with 0.5 mg IV Ativan. 0009: The patient was treated with 125 mg IV Solu-Medrol. 0015: The patient was treated with 3 mL inhaled Duoneb and 0.5 mg IV Ativan. 0038: The patient was reevaluated at bedside. Patient was resting comfortably; had a couple of episodes of desaturation but was stable at 40% on a Venturi mask. 0056: The patient???s case was discussed with the admitting Hospitalist, who requested an ABG priorto making disposition decisions. 0135: The patient's VBG result was discussed with the admitting Hospitalist, who agreed that she was appropriate for admission to their service at that time. At this time, the patient was hemodynamically stable for admission to Medicine under the care of Dr. Stone. Her COVID-19, troponin, CBC and differential, and electrolyte results were pending on admission. Final diagnoses: COPD exacerbation ([facility]) Respiratory distress Dyspnea, unspecified type MDM MDM Number of Diagnoses or Management Options Chronic respiratory failure with hypoxia ([facility]): COPD exacerbation ([facility]): Dyspnea, unspecified type: Respiratory distress: Diagnosis management comments: Critical care 48 minutes POCUS Thoracic Amount and/or Complexity of Data Reviewed Clinical lab tests: ordered and reviewed Tests in the radiology section of CPT??: ordered and reviewed Tests in the medicine section of CPT??: ordered and reviewed Discussion of test results with the performing providers: yes Discuss the patient with other providers: yes Independent visualization of images, tracings, or specimens: yes Disposition Admitted The patient's pain was managed to an adequate level weighing risk vs. Benefit of further medications. At the end of my care of this patient, the patient's pain was 0 on a zero to ten scale. Any further pain treatment will be at the discretion of the provider following up with the patient based on their clinical assessment. The patient's condition at the end of my care: Stable * Dilan Taylor - 04/25/2020 6274 EDT 12 Lead EKG Performed by DILAN TAYLOR and shown to Adrienne Dickens MD. * Joshua Lopez - 04/25/2020 2349 EDT 12 Lead EKG Performed by JOSHUA LOPEZ and shown to MONET PHIPPS documented in this encounter Miscellaneous Notes * Plan of Care - Adeline Sena RN - 04/28/2020 1729 EDT Problem: Daily Care Plan Goals Goal: Care Plan Documentation Flowsheets (Taken 04/28/2020 1726) Area of Focus: Discharge Plan Goal This Shift: pt to d/c home Note: Nursing Discharge Note D: Hd#1 r/t SOB, dyspnea upon exertion and dyspnea upon rest. Pt noted to have hx of asthma, COPD and anxiety. Stated SOB occurs when I go to sleep and wake up and I feel like I can't breathe. Improved overnight and throughout day with 1-2 L NC O2 via NC when pt sleeping. Patient noted with discharge orders to: home with O2 for NOC and pulmonary f/u. A: Prescriptions e-scripted. Reviewed discharge instructions and prescriptions with Patient. Discussed and encouraged coping mechanisms to aid in reducing anxiety, particularly ambulating, deep breathing, and meditation. IV d/c'd. Gauze applied. Belongings collected and sent home with patient. R: Patient verbalized understanding of discharge instructions and denied further questions. Acknowledged discussion and stated walking helps me a lot r/t reducing anxiety. [facility] to drop of O2 tonight (pt on phone with [facility] during d/c). Pt left in w/c w/ PSS to ACC to bead picker medication via [facility] pharmacy and to meet ride home. ADELINE SENA RN 04/28/2020 17:27 * Plan of Care - Jhoan Heredia RN - 04/28/2020 0225 EDT Data: Assumed care at 1900-pt is able to ambulate independently in room/hallway Action: Monitored for Anxiety/Resp distress/Pain discomfort on rounds. Received Scheduled & prnmeds - with good relief. Remains on fluid restrictions. Stated had 1 bm prior to my shift. Response: Had minimum anxiety - No resp wheezing noted. Appeared to sleep on hourly rounds as documented-did sleep with Pulse ox on with no alarms being set while asleep. Does not require 02 during this shift. *Reinforced fluid restrictions & to measure fluid intake & output - Placed Urinary measuring container in commode-informed pt to notify staff after urination-voiced understanding. JHOAN HEREDIA RN 04/28/2020 2:25 * Plan of Care - Marsha Hamm RN - 04/27/2020 1635 EDT Problem: Daily Care Plan Goals Goal: Care Plan Documentation Flowsheets (Taken 04/27/2020 0900) Area of Focus: Respiratory Goal This Shift: pt O2 will remain stable Data: Pt AOx3 throughout shift. Pt on RA sat between 92-97%. Pt states that she sometimes feels SOBthroughout shift. Pt independently ambulating. Action: Meds given per jan. Encourage pt to take deep breaths and count when she feels SOB or feeling anxious. Monitor resp status Response: Pt states that she is just tired today and is looking forward to getting quality sleep when a CPAP is arranged. Resp status remains stable. Will continue to monitor MARSHA HAMM RN 04/27/2020 16:36 * Plan of Care - Jolie Hook - 04/27/2020 1110 EDT 04/27/20 1110 Observation Notification: Notification of outpatient observation services Patient received notification verbally and in writing while in hospital. Obs letter complete? Yes * Plan of Care - Adeline Sena RN - 04/26/2020 1958 EDT Problem: Daily Care Plan Goals Goal: Care Plan Documentation Outcome: Met This Shift Flowsheets (Taken 04/26/2020 1433) Area of Focus: Mobility Goal This Shift: pt will ambulate x2 this shift Note: Data: Hd#1 r/t SOB. Negative for COVID-19. Assumed care of pt @approximately 1100. Pt A+Ox3, able to follow commands and make needs known, though states I don't want to be a bother. Pt noted to have increased anxiety, with report of x1 SOB, tearful, and reporting dyspnea. Pt expressing concern and anxiety of going to sleep and waking up and not being able to breathe as she reports this has happened multiple times. Action: Discussed coping mechanisms with pt re: anxiety, evaluated strategies that would work best for pt. Set up plan to ambulate at least twice this shift. Offered O2 via NC for comfort r/t pt feeling SOB particularly when sleeping. Response: Pt expressed that ambulation aids in reducing anxiety. Ambulated x2 this shift. Took nap this afternoon for approximately 1.5-2 hours with NC at 2L. O2 sat in low 90s while resting. Pt reported post nap that she felt much calmer and denied increased anxiety s/p nap. Will continue to assess and intervene PRN. ADELINE SENA RN 04/26/2020 19:48 * Plan of Care - Miguel Rosario RN - 04/26/2020 0508 EDT Problem: Daily Care Plan Goals Goal: Care Plan Documentation Outcome: Met This Shift Flowsheets (Taken 04/26/2020 0404) Area of Focus: Communication Goal This Shift: pt oriented to unit and Plan of care Note: Data: Pt admitted to M6 for observation of respiratory status. Action: Oriented pt to unit and plan of care. Monitored vs, respiratory status, and comfort level. Response: Pt is drowsy and easily arouses to voice. VSS. Maintaining O2sat on RA and reporting mildchest heaviness. aware. MIGUEL ROSARIO RN 04/26/2020 4:54 Problem: High Fall Risk: Goal: Patient Will Remain Free from Fall-Related Injury Outcome: Met This Shift Note: Pt ambulated independently, safely, and with no shortness of breath to restroom. documented in this encounter Plan of Treatment Upcoming Encounters Date Type Department Care Team (Late st Contact Info) Description 01/04/2025 13:00 EST Office Visit [facility] Ophthalmology - [address] [phone] Gagandeep Rome MD [address] [place] [address], [address] [place] [id number] 02/11/2025 13:30 EDT Telemedicine [facility] Hematology & Oncology - [address] [phone] Dana Padilla MD [address] [place] [address], [facility] [address] [place] [id number] Scheduled Orders Name Type Priority Associated Diagnoses Orde r Schedule SPLIT NIGHT POLYSOMNOGRAM (DIAGNOSTIC POLYSOMNOGRAM WITH SPLIT TO CPAP/BIPAP TITRATION) Sleep Center Routine HUEY (obstructive sleep apnea) Ordered: 04/28/2020 documented as of this encounter Procedures Procedure Name Priority Date/Time Associated Diagnosis Comments PROCEDURE REPORTS - SCANNED 04/30/2020 14:54 EDT TRANSTHORACIC ECHO (TTE) COMPLETE Routine 04/28/2020 15:37 EDT ECG REPORT - SCANNED 04/28/2020 14:41 EDT ALPHA 1 ANTITRYPSIN Add-On 04/28/2020 7 :49 EDT PROTIME Routine 04/28/2020 7:49 EDT COMPLETE BLOOD COUNT Routine 04/28/2020 7:49 EDT BUN Routine 04/28/2020 7:49 EDT TSH Routine 04/28/2020 7:49 EDT T4 FREE Routine 04/28/2020 7:49 EDT CREATININE Routine 04/28/2020 7:49 EDT ELECTROLYTES Routine 04/28/2020 7:49 EDT PROTIME Routine 04/27/2020 5:44 EDT COMPLETE BLOOD COUNT Routine 04/27/2020 5:44 EDT BUN Routine 04/27/2020 5:44 EDT CREATININE Routine 04/27/2020 5:44 EDT ELECTROLYTES Routine 04/27/2020 5:44 EDT OVERNIGHT OXIMETRY- INPATIENT USE ONLY Routine 04/26/2020 13:41 EDT DIFFERENTIAL, AUTOMATED MANUAL Today 04/26/2020 10:51 EDT COMPLETE BLOOD COUNT Routine 04/26/2020 10:51 EDT BUN Routine 04/26/2020 10:51 EDT ALT Add-On 04/26/2020 10:51 EDT AST Add-On 04/26/2020 10:51 EDT ALKALINE PHOSPHATASE Add-On 04/26/2020 10:51 EDT CREATININE Routine 04/26/2020 10:51 EDT BILIRUBIN, TOTAL Add-On 04/26/2020 10:5 1 EDT ELECTROLYTES Routine 04/26/2020 10:51 EDT DRY POWDERED OR METERED DOSE INHALER Routine 04/26/2020 4:17 EDT POCT BLOOD GAS, EG6 I-STAT Routine 04/26/2020 1:31 EDT ZZCOVID-19 TEST [facility] PCR STAT 04/26/2020 0:58 EDT COVID-19 TESTING STAT 04/26/2020 0:58 EDT ED CRITICAL CARE Routine 04/26/2020 0:33 EDT ED CRITICAL CARE Routine 04/26/2020 0:33 EDT XR CHEST PORTABLE 1 VIEW STAT 04/26/2020 0:21 EDT DIFFERENTIAL, AUTOMATED MANUAL Today 04/26/2020 0:14 EDT HOLD SST Routine 04/26/2020 0:14 EDT HOLD LAVENDER TOP Routine 04/26/2020 0:1 4 EDT HOLD GREEN TOP Routine 04/26/2020 0:14 EDT HOLD BLUE TOP Routine 04/26/2020 0:14 EDT SCREENING GLUCOSE STAT Add-on 04/26/2020 0:1 4 EDT EXTRA BLOOD DRAW (RAINBOW) Routine 04/26/2020 0:14 EDT TROPONIN I STAT Add-on 04/26/2020 0:14 EDT COMPLETE BLOOD COUNT AND DIFFERENTIAL STAT Add-on 04/26/2020 0:14 EDT BUN STAT Add-on 04/26/2020 0:14 EDT MAGNESIUM STAT Add-on 04/26/2020 0:14 EDT CREATININE STAT Add-on 04/26/2020 0:14 EDT ELECTROLYTES STAT Add-on 04/26/2020 0:14 EDT POCT US ED THORACIC STAT 04/26/2020 0 :01 EDT EKG 12-LEAD STAT 04/25/2020 23:48 EDT documented in this encounter Results * PROCEDURE REPORTS - SCANNED (04/30/2020 14:54 EDT) 04/30/2020 14:5 4 EDT us Scan 2 Healthcare Account Manager PROCEDURE/MINOR SURGICAL OR DERABLES Final Result * TRANSTHORACIC ECHO (TTE) COMPLETE W/DOPPLER W/CF NO CONTRAST (04/28/2020 15:37 EDT) LA Atrial Length A2C 5.3 cm [facility]INT [facility] C[facility] LA Atrial Area A4C 17.2 cm2 P [facility] C[facility] LA ID/bsa, A-P 2.2 cm/m2 [facility]INT [facility] FS 36 28 - 44 % POINT OF C ARE [facility] LA ID, A-P, ES 4.4 cm [facility] LV PW thickness, ED, PLAX 1.3 0.6 - 1.1 cm [facility] Aortic root ID 2.9 cm [facility]INT [facility] LVOT mean gradient, S 4 mmHg [facility] AV LVOT peak gradient 8 mmHg [facility] LV e', lateral 0.10 m/s [facility] Mitral deceleration time 215 ms [facility] LVOT area 3.1 cm2 POINT OF C ARE [facility] LVOT peak velocity, S 1.4 m/s [facility]INT [facility] C[facility] LVOT VTI, S 31.0 cm [facility] Stroke volume (SV), LVOT DP 97 ml [facility] C[facility] Mitral peak gradient, D 5.1 mmHg POINT [facility] CARE [facility] LVOT mean velocity, S 1.0 m/s [facility]INT [facility] C[facility] Mitral E-wave peak velocity 1.1 m/s [facility] C[facility] Mitral A-wave peak velocity 1.0 m/s [facility]INT [facility] C[facility] LV Systolic Volume 33 mL P [facility]INT [facility] C[facility] LV Diastolic Volume 96 mL [facility]INT [facility] CARE [facility] LA Atrial Length A4C 5.1 cm [facility]INT [facility] C[facility] LVOT ID, S 2.0 cm [facility]INT [facility] C[facility] LA volume, ES, BP 51.0 ml PO INT OF CARE [facility] LA volume/bsa, ES, A4C 22.0 ml/m2 POINT [facility] CARE [facility] LA volumes, ES, A4C 43.0 ml POINT OF CARE [facility] LA volume/bsa, ES, BP 26.0 ml/m2 [facility]INT [facility] CARE [facility] Stroke index (SV/bsa) LVOT DP 49.0 ml/m2 POINT OF CA RE [facility] Interventricular Septum to Posterior Wall Thickness Ratio 0.8 POINT O F CARE [facility] IVS thickness, ED, PLAX 1.0 cm [facility]INT [facility] C[facility] LV e', medial 0.09 m/s [facility]INT [facility] C[facility] LV e', average 0.09 m/s [facility] Pulmonic valve mean velocity, S 1 cm/s [facility]INT [facility] C[facility] Ascending aorta ID, a-p 2.7 cm POINT OF CARE [facility] LA Atrial Area A2C 17.2 cm2 P OINT [facility] C[facility] LA/aortic root ratio 1.52 POINT OF CARE [facility] LV ID, ED, PLAX 4.6 3.5 - 6.0 cm POINT [facility] CARE [facility] LV ID, ES, PLAX 2.9 2.1 - 4.0 cm POINT OF CARE [facility] LV E/e', lateral 12.0 POI NT OF CARE [facility] LV E/e', medial 12.0 POIN T OF CARE [facility] LV E/e', average 12 POI NT OF CARE [facility] LV ejection fraction, 1-p A4C 36 % POINT OF C ARE [facility] Anatomical Region Laterality Modality Ultrasound Narrative 04/28/2020 15:56 EDT ?Left Ventricle: Left ventricular systolic function was normal with an ejection fraction of 60-65%. ?Left Ventricle: Left ventricular diastolic parameters were normal. ?Left Ventricle: Left ventricular wall motion was normal; there were no regional wall motion abnormalities. ?Right Ventricle: Right ventricular systolic function was normal. Left Ventricle The left ventricular cavity was normal in size. Left ventricular systolic function was normal with an ejection fraction of 60-65%. Left ventricular diastolic parameters were normal. Left ventricular wall thickness was at the upper limits of normal. Left ventricular wall motion was normal; there were no regional wall motion abnormalities. Right Ventricle The right ventricular cavity was normal in size. Right ventricular systolic function was normal. Right ventricular wall thickness was normal. Left Atrium Left atrial cavity was dilated. Right Atrium The right atrium was [...] was no aortic valve regurgitation. Pulmonic Valve There was trace pulmonic valve regurgitation. There was no pulmonic valve stenosis. Ascending Aorta The aorta was normal in size. Pericardium A trivial pericardial effusion was identified. Pulmonic Artery Pulmonary systolic pressure was estimated to be 30 mmHg. Study Details Study status: Routine. Transthoracic echocardiography. M-Mode, complete 2D, complete spectral Doppler, and color Doppler.The study was interpreted by [facility]. Pertinent images and digital data are archived for permanent storage and are available for subsequent review. Scanning was performed from the apical, parasternal and subcostal acoustic windows. Overall the study quality was adequate. Images were obtained using cardiac ultrasound machine EPIQ #[id number]. us Hiren Strickland MD CARDIAC ECHO ORDERABLES Fin al Result * ECG REPORT - SCANNED (04/28/2020 14:41 EDT) 04/28/2020 14:4 1 EDT us Scan 2 [employer] Account Manager PROCEDURE/MINOR SURGICAL OR DERABLES Final Result * T4 FREE (04/28/2020 7:49 EDT) T4, Free 0.9 0.8 - 2.2 ng/dL 04/30/2020 10:37 EDT [facility] Blood VENOUS BLOOD / Unknown Venipuncture / Unknown 04/28/2020 7:49 EDT 04/28/2020 8:04 EDT us Jay Jay Gresham MD CHEMISTRY & BLOOD G ORDERABLES Final Result Performing Organization Address City/[facility]/ZIP Co de Phone Number [facility] [address] [place] [address] * (ABNORMAL) TSH (04/28/2020 7:49 EDT) [facility] TSH 6.09(H) 0.47 - 4.68 uIU/mL 04/30/2020 10:50 EDT [facility] Blood VENOUS BLOOD / Unknown Venipuncture / Unknown 04/28/2020 7:49 EDT 04/28/2020 8:04 EDT Narrative [facility] - 04/30/2020 10:50 EDT The results of this assay can be falsely lowered due to the consumption of Biotin. us Jay Jay Gresham MD CHEMISTRY & BLOOD G ORDERABLES Final Result Performing Organization Address [facility]/ZIP Co de Phone Number [facility] [address] [place] [address] * ALPHA 1 ANTITRYPSIN (04/28/2020 7:49 EDT) [facility] Alpha 1 Antitrypsin 149 90 - 200 mg/dL 04/28/2020 13:36 EDT [facility] Blood VENOUS BLOOD / Unknown Venipuncture / Unknown 04/28/2020 7:49 EDT 04/28/2020 8:04 EDT us Farhana Gonzalez DO CHEMISTRY & BLOOD GAS ORD ERABLES Final Result Performing Organization Address City/[facility]/ZIP Co de Phone Number [facility] [address] [place] [address] * (ABNORMAL) PROTIME (04/28/2020 7:49 EDT) [facility] I.N.R. 1.3(H) 0.9 - 1.1 Ratio 04/28/2020 8:19 EDT [facility] Pro Time 15.4(H) 10.3 - 13.4 secs 04/28/2020 8:19 EDT [facility] Blood VENOUS BLOOD / Unknown Venipuncture / Unknown 04/28/2020 7:49 EDT 04/28/2020 8:02 EDT Narrative [facility] - 04/28/2020 8:19 EDT Moderate Intensity Coumadin INR = 2.0-3.0 Adjustments in anticoagulant therapy dose should be based on the INR and NOT on the Protime. Kiana Love MD HEMATOLOGY & PF4 ORDERABLES Final Result [facility] [address] [place] [address] * CREATININE (04/28/2020 7:49 EDT) Creatinine 0.86 0.52 - 1.04 mg/dL 04/28/2020 8:35 EDT [facility] eGFR 74 >60 mL/min/1.7 3m2 04/28/2020 8:35 EDT [facility] Comment:eGFR calculated lobito coppola CKD-EPI equation for non- Americans. Multiply eGFR by 1.16 for patients. Blood VENOUS BLOOD / Unknown Venipuncture / Unknown 04/28/2020 7:49 EDT 04/28/2020 8:04 EDT Hiren Strickland MD CHEMISTRY & BLOOD GAS ORDER YANN Final Result Performing Organization Address City/[facility]/ZIP Co de Phone Number [facility] [address] [place] [address] * (ABNORMAL) BUN (04/28/2020 7:49 EDT) BUN 29(H) 10 - 26 mg/dL 04/28/2020 8:35 EDT [facility] Blood VENOUS BLOOD / Unknown Venipuncture / Unknown 04/28/2020 7:49 EDT 04/28/2020 8:04 EDT Hiren Strickland MD CHEMISTRY & BLOOD GAS ORDER YANN Final Result Performing Organization Address [facility] de Phone Number [facility] [address] [place] [address] * ELECTROLYTES (04/28/2020 7:49 EDT) Sodium 136 136 - 145 mEq/L 04/28/2020 8:35 EDT [facility] Potassium 4.4 3.5 - 5.0 mEq/L 04/28/2020 8:35 EDT [facility] Chloride 102 96 - 110 mEq/L 04/28/2020 8:35 EDT [facility] CO2 Total 28 22 - 32 mEq/L 04/28/2020 8:35 EDT [facility] Blood VENOUS BLOOD / Unknown Venipuncture / Unknown 04/28/2020 7:49 EDT 04/28/2020 8:04 EDT Hiren Strickland MD CHEMISTRY & BLOOD GAS ORDER YANN Final Result Performing Organization Address [facility] de Phone Number [facility] [address] [place] [address] * (ABNORMAL) COMPLETE BLOOD COUNT (04/28/2020 7:49 EDT) WBC 2.14(L) 4.00 - 12.40 K/cmm 04/28/2020 8:16 EDT [facility] RBC 3.81(L) 3.86 - 5.04 M/cmm 04/28/2020 8:16 EDT [facility] Hemoglobin 11.6 11.6 - 15.2 gm/dL 04/28/2020 8:16 EDT [facility] HCT 34.8(L) 34.9 - 44.4 % 04/28/2020 8:16 EDT [facility] MCV 91 81 - 98 fl 04/28/2020 8:16 EDT [facility] MCH 30.4 26.7 - 33.3 pg 04/28/2020 8:16 EDT [facility] MCHC 33.3 32.1 - 35.9 gm/dL 04/28/2020 8:16 EDT [facility] RDW-CV 14.3 <14.7 % 04/28/2020 8:16 EDT [facility] RDW-SD 47.5 <50.4 fl 04/28/2020 8:16 EDT [facility] PLT 37(L) 141 - 377 K/cmm 04/28/2020 8:16 EDT [facility] MPV 10.6 9.5 - 12.7 fl 04/28/2020 8:16 EDT [facility] Blood VENOUS BLOOD / Unknown Venipuncture / Unknown 04/28/2020 7:49 EDT 04/28/2020 8:04 EDT us Hiren Strickland MD HEMATOLOGY & PF4 ORDERABLES Final Result Performing Organization Address [facility] de Phone Number [facility] [address] [place] [address] * (ABNORMAL) PROTIME (04/27/2020 5:44 EDT) I.N.R. 1.4(H) 0.9 - 1.1 Ratio 04/27/2020 6:29 EDT [facility] Pro Time 15.8(H) 10.3 - 13.4 secs 04/27/2020 6:29 EDT [facility] Blood VENOUS BLOOD / Unknown Venipuncture / Unknown 04/27/2020 5:44 EDT 04/27/2020 6:07 EDT Narrative [facility] - 04/27/2020 6:29 EDT Moderate Intensity Coumadin INR = 2.0-3.0 Adjustments in anticoagulant therapy dose should be based on the INR and NOT on the Protime. us Kiana Love MD HEMATOLOGY & PF4 ORDERABLES Final Result Performing Organization Address [facility] Co de Phone Number [facility] [address] [place] [address] * CREATININE (04/27/2020 5:44 EDT) Creatinine 0.76 0.52 - 1.04 mg/dL 04/27/2020 6:53 EDT [facility] eGFR 86 >60 mL/min/1.7 3m2 04/27/2020 6:53 EDT [facility] Comment:eGFR calculated lobito coppola CKD-EPI equation for non- Americans. Multiply eGFR by 1.16 for patients. Blood VENOUS BLOOD / Unknown Venipuncture / Unknown 04/27/2020 5:44 EDT 04/27/2020 6:13 EDT Hiren Strickland MD CHEMISTRY & BLOOD GAS ORDER YANN Final Result Performing Organization Address City/[facility]/ZIP Co de Phone Number [facility] [address] [place] [address] * BUN (04/27/2020 5:44 EDT) BUN 26 10 - 26 mg/dL 04/27/2020 6:53 EDT [facility] Blood VENOUS BLOOD / Unknown Venipuncture / Unknown 04/27/2020 5:44 EDT 04/27/2020 6:13 EDT Hiren Strickland MD CHEMISTRY & BLOOD GAS ORDER YANN Final Result [facility] [address] [place] [address] * (ABNORMAL) ELECTROLYTES (04/27/2020 5:44 EDT) Sodium 134(L) 136 - 145 mEq/L 04/27/2020 6:53 EDT [facility] Potassium 4.7 3.5 - 5.0 mEq/L 04/27/2020 6:53 EDT [facility] Chloride 103 96 - 110 mEq/L 04/27/2020 6:53 EDT [facility] CO2 Total 23 22 - 32 mEq/L 04/27/2020 6:53 EDT [facility] Blood VENOUS BLOOD / Unknown Venipuncture / Unknown 04/27/2020 5:44 EDT 04/27/2020 6:13 EDT us Hiren Strickland MD CHEMISTRY & BLOOD GAS ORDER YANN Final Result [facility] [address] [place] [address] * (ABNORMAL) COMPLETE BLOOD COUNT (04/27/2020 5:44 EDT) WBC 2.48(L) 4.00 - 12.40 K/cmm 04/27/2020 6:15 T [facility] RBC 3.91 3.86 - 5.04 M/cmm 04/27/2020 6:15 [facility] Hemoglobin 11.7 11.6 - 15.2 gm/dL 04/27/2020 6:15 [facility] HCT 35.6 34.9 - 44.4 % 04/27/2020 6:15 [facility] MCV 91 81 - 98 fl 04/27/2020 6:15 [facility] MCH 29.9 26.7 - 33.3 pg 04/27/2020 6:15 [facility] MCHC 32.9 32.1 - 35.9 gm/dL 04/27/2020 6:15 [facility] RDW-CV 13.9 <14.7 % 04/27/2020 6:15 [facility] RDW-SD 46.6 <50.4 fl 04/27/2020 6:15 [facility] PLT 40(L) 141 - 377 K/cmm 04/27/2020 6:15 [facility] MPV 10.6 9.5 - 12.7 fl 04/27/2020 6:15 [facility] Blood VENOUS BLOOD / Unknown Venipuncture / Unknown 04/27/2020 5:44 EDT 04/27/2020 6:08 EDT us Hiren Strickland MD HEMATOLOGY & PF4 ORDERABLES Final Result Performing Organization Address City/[facility]/ZIP Co de Phone Number [facility] [address] [place] [address] * ALKALINE PHOSPHATASE (04/26/2020 10:51 EDT) Alkaline Phosphatase 70 38 - 126 U/L 04/26/2020 14:05 EDT [facility] Blood VENOUS BLOOD / Unknown Venipuncture / Unknown 04/26/2020 10:51 EDT 04/26/2020 11:16 EDT us Kiana Love MD CHEMISTRY & BLOOD GAS ORDERA BLES Final Result Performing Organization Address [facility] Co de Phone Number [facility] [address] [place] [address] * BILIRUBIN, TOTAL (04/26/2020 10:51 EDT) Bilirubin, Total 0.9 <1.4 mg/dL 04/26/2020 14:05 EDT [facility] Blood VENOUS BLOOD / Unknown Venipuncture / Unknown 04/26/2020 10:51 EDT 04/26/2020 11:16 EDT us Kiana Love MD CHEMISTRY & BLOOD GAS ORDERA BLES Final Result Performing Organization Address [facility]/ZIP Co de Phone Number [facility] [address] [place] [address] * ALT (04/26/2020 10:51 EDT) ALT 19 <35 U/L 04/26/2020 14:05 EDT [facility] Blood VENOUS BLOOD / Unknown Venipuncture / Unknown 04/26/2020 10:51 EDT 04/26/2020 11:16 EDT us Kiana Love MD CHEMISTRY & BLOOD GAS ORDERA BLES Final Result [facility] [address] [place] [address] * AST (04/26/2020 10:51 EDT) AST 25 15 - 46 U/L 04/26/2020 14:05 EDT [facility] Blood VENOUS BLOOD / Unknown Venipuncture / Unknown 04/26/2020 10:51 EDT 04/26/2020 11:16 EDT us Kiana Love MD CHEMISTRY & BLOOD GAS ORDERA BLES Final Result Performing Organization Address [facility] Co de Phone Number [facility] [address] [place] [address] * (ABNORMAL) DIFFERENTIAL, AUTOMATED MANUAL (04/26/2020 10:51 EDT) % Neutrophils 93.9 % 04/26/2020 12:08 EDT [facility] % Banded Neutrophils 2.6 % 04/26/2020 12:08 EDT [facility] % Lymphocytes 3.5 % 04/26/2020 12:08 EDT [facility] Absolute Neutrophils 0.94(L) 2.20 - 8.85 K/cmm 04/26/2020 12:08 EDT [facility] Absolute Bands 0.03 K/cmm 04/26/2020 12:08 EDT [facility] Absolute Lymphocytes 0.04(L) 1.09 - 3.30 K/cmm 04/26/2020 12:08 EDT [facility] Blood VENOUS BLOOD / Unknown Venipuncture / Unknown 04/26/2020 10:51 EDT 04/26/2020 11:16 EDT us Hiren Strickland MD HEMATOLOGY & PF4 ORDERABLES Final Result Performing Organization Address [facility]/ZIP Co de Phone Number [facility] [address] [place] [address] * CREATININE (04/26/2020 10:51 EDT) Creatinine 0.75 0.52 - 1.04 mg/dL 04/26/2020 11:45 EDT [facility] eGFR 88 >60 mL/min/1.7 3m2 04/26/2020 11:45 EDT [facility] Comment:eGFR calculated lobito coppola CKD-EPI equation for non- Americans. Multiply eGFR by 1.16 for patients. Blood VENOUS BLOOD / Unknown Venipuncture / Unknown 04/26/2020 10:51 EDT 04/26/2020 11:16 EDT Hiren Strickland MD CHEMISTRY & BLOOD GAS ORDER YANN Final Result [facility] [address] [place] [address] * BUN (04/26/2020 10:51 EDT) BUN 18 10 - 26 mg/dL 04/26/2020 11:45 EDT [facility] Blood VENOUS BLOOD / Unknown Venipuncture / Unknown 04/26/2020 10:51 EDT 04/26/2020 11:16 EDT Hiren Strickland MD CHEMISTRY & BLOOD GAS ORDER YANN Final Result Performing Organization Address City/[facility] Co de Phone Number [facility] [address] [place] [address] * (ABNORMAL) ELECTROLYTES (04/26/2020 10:51 EDT) Sodium 135(L) 136 - 145 mEq/L 04/26/2020 11:45 EDT [facility] Potassium 4.3 3.5 - 5.0 mEq/L 04/26/2020 11:45 EDT [facility] Chloride 102 96 - 110 mEq/L 04/26/2020 11:45 EDT [facility] CO2 Total 22 22 - 32 mEq/L 04/26/2020 11:45 EDT [facility] Blood VENOUS BLOOD / Unknown Venipuncture / Unknown 04/26/2020 10:51 EDT 04/26/2020 11:16 EDT us Hiren Strickland MD CHEMISTRY & BLOOD GAS ORDER YANN Final Result [facility] [address] [place] [address] * (ABNORMAL) COMPLETE BLOOD COUNT (04/26/2020 10:51 EDT) WBC 1.00(L) 4.00 - 12.40 K/cmm 04/26/2020 11:39 EDT [facility] RBC 3.82(L) 3.86 - 5.04 M/cmm 04/26/2020 11:39 EDT [facility] Hemoglobin 11.5(L) 11.6 - 15.2 gm/dL 04/26/2020 11:39 EDT [facility] HCT 33.8(L) 34.9 - 44.4 % 04/26/2020 11:39 T [facility] MCV 89 81 - 98 fl 04/26/2020 11:39 EDT [facility] MCH 30.1 26.7 - 33.3 pg 04/26/2020 11:39 T [facility] MCHC 34.0 32.1 - 35.9 gm/dL 04/26/2020 11:39 T [facility] RDW-CV 13.9 <14.7 % 04/26/2020 11:39 T [facility] RDW-SD 44.9 <50.4 fl 04/26/2020 11:39 T [facility] PLT 33(L) 141 - 377 K/cmm 04/26/2020 11:39 EDT [facility] MPV 10.8 9.5 - 12.7 fl 04/26/2020 11:39 [facility] Blood VENOUS BLOOD / Unknown Venipuncture / Unknown 04/26/2020 10:51 EDT 04/26/2020 11:16 EDT us Hiren Strickland MD HEMATOLOGY & PF4 ORDERABLES Final Result [facility] [address] [place] [address] * (ABNORMAL) POCT BLOOD GAS, EG6 I-STAT (04/26/2020 1:31 EDT) iSTAT pH 7.38 7.35 - 7.45 04/26/2020 1:38 EDT [facility] iSTAT pCO2 41 35 - 45 mmHg 04/26/2020 1:38 EDT [facility] i-STAT pO2 52(L) 80 - 105 mmHg 04/26/2020 1:38 EDT [facility] iSTAT TCO2 26 23 - 27 mmol/L 04/26/2020 1:38 EDT [facility] i-STAT O2 Saturation 86(L) 95 - 98 % 04/26/2020 1:38 EDT [facility] Base Deficit, i-STAT 1 -2 - 3 04/26/2020 1:38 EDT [facility] Sample Source VENOUS 04/26/2020 1:38 EDT [facility]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 For non-arterial reference ranges, please see ISTAT procedure 04/26/2020 1:38 EDT [facility] Comment:For arterial collect ion, the Laboratory recommends that the Modified Freddy test be performed to determine that collateral circulation is present from the ulnar artery in the event that thrombosis of the radial artery should occur. Performance of the Modified Freddy test should be documented in the patients' chart Blood VENOUS BLOOD SPECIMEN / Unknown 04/26/2020 1:31 EDT 04/26/2020 1:38 EDT us Laurent Douglas MD POINT OF CARE TEST OR DERABLES Final Result [facility] [address] [place] [address] * COVID-19 TEST [facility] PCR (04/26/2020 0:58 EDT) Swab ENTIRE NASOPHARYNX / Unknown Swab / Unknown 04/26/2020 0:58 EDT 04/26/2020 1:09 EDT Laurent Douglas MD MICROBIOLOGY - GENERA L ORDERABLES Final Result Performing Organization Address [facility] Co de Phone Number [facility] [address] [place] [address] * COVID-19 TESTING (04/26/2020 0:58 EDT) COVID-19 rt-PCR Result Negative Negative 04/26/2020 11:14 EDT [facility] Comment: This test [...] history, and epidemiological information. Performed on the [employer] Fusion instrument Performing Lab [facility] 04/26/2020 11:14 EDT [facility] Swab ENTIRE NASOPHARYNX / Unknown Swab / Unknown 04/26/2020 0:58 EDT 04/26/2020 1:09 EDT us Laurent Douglas MD MICROBIOLOGY - GENERA L ORDERABLES Final Result Performing Organization Address [facility]/ZIP Co de Phone Number [facility] [address] [place] [address] * [place] CRITICAL CARE ILL/INJURED PATIENT INIT 30-74 MIN, [facility] - CRITICAL CARE ILL/INJURED PATIENT INIT 30-74 MIN (04/26/2020 0:33 EDT) Narrative [facility] EKG - 04/26/2020 0:33 EDT Laurent Douglas MD ? 05/02/2020 ??7:50 Critical Care Performed by: Laurent Douglas MD Authorized by: Laurent Douglas MD Critical care provider statement: ??Critical care time (minutes): ??48 ??Critical care start time: ??04/25/2020 23:42 ??Critical care end time: ??04/26/2020 0:30 ??Critical care time was exclusive of: ??Separately billable procedures and treating other patients and teaching time ??Critical care was necessary to treat or prevent imminent or life-threatening deterioration of the following conditions: ??Respiratory failure ??Critical care was time spent personally by me on the following activities: ??Blood draw for specimens, development of treatment plan with patient or surrogate, discussions with primary provider, pulse oximetry, re-evaluation of patient's condition, examination of patient, ordering and performing treatments and interventions, ordering and review of laboratory studies and ordering and review of radiographic studies Laurent Douglas MD PROCEDURE/MINOR SURGI MICHAEL ORDERABLES Edited Result - Final [facility] EKG * XR CHEST PORTABLE 1 VIEW (04/26/2020 0:21 EDT) Anatomical Region Laterality Modality Computed Radiogr aphy 04/26/2020 8:18 EDT Impressions 04/26/2020 8:18 EDT Mild pulmonary interstitial edema. I have personally reviewed the images and the above interpretation and agree with the findings. Narrative 04/26/2020 8:18 EDT XR CHEST PORTABLE 1 VIEW ??04/26/2020 12:10 AM CLINICAL HISTORY/COMMENTS: Dyspnea. COMPARISON: CT PE and chest radiograph 04/19/2020. FINDINGS: Single portable AP view of the chest. Lines/tubes: ??None Soft tissues, bones and extrathoracic findings: No significant abnormality. Cardiac and mediastinal contours: Cardiac silhouette is normal in size. Lungs: There is redemonstration of vasculature toward the lung apices with indistinctness of the bronchovascular markings in the lung bases and thickened interlobular septae, consistent with mild interstitial pulmonary edema. No coalescent opacity is seen. Pleura: No visible pleural abnormalities. Procedure Note D'Agostino, Jayden, MD - 04/26/2020 XR CHEST PORTABLE 1 VIEW 04/26/2020 12:10 AM CLINICAL HISTORY/COMMENTS: Dyspnea. COMPARISON: CT PE and chest radiograph 04/19/2020. FINDINGS: Single portable AP view of the chest. Lines/tubes: None Soft tissues, bones and extrathoracic findings: No significantabnormality. Cardiac and mediastinal contours: Cardiac silhouette is normal in size. Lungs: There is redemonstration of vasculature toward the lung apices withindistinctness of the bronchovascular markings in the lung bases andthickened interlobular septae, consistent with mild interstitial pulmonaryedema. No coalescent opacity is seen. Pleura: No visible pleural abnormalities. IMPRESSION Mild pulmonary interstitial edema. I have personally reviewed the images and the above interpretation andagree with the findings. Laurent Douglas MD IMG DIAGNOSTIC IMAGIN G ORDERABLES Final Result * (ABNORMAL) DIFFERENTIAL, AUTOMATED MANUAL (04/26/2020 0:14 EDT) % Neutrophils 69.6 % 04/26/2020 2:10 [facility] % Lymphocytes 24.3 % 04/26/2020 2:10 T [facility] % Monocytes 5.2 % 04/26/2020 2:10 [facility] % Basophils 0.9 % 04/26/2020 2:10 [facility] Schistocytes Increased schistocytes are seen but less than 1% (1+) of the RBCs 04/26/2020 2:10 [facility] [place] Bodies Present in <2% of RBCs 04/26/2020 2:10 [facility] Absolute Neutrophils 0.95(L) 2.20 - 8.85 K/cmm 04/26/2020 2:10 [facility] Absolute Lymphocytes 0.33(L) 1.09 - 3.30 K/cmm 04/26/2020 2:10 [facility] Absolute Monocytes 0.07(L) 0.10 - 0.80 K/cmm 04/26/2020 2:10 EDT [facility] ABS Basophils 0.01 0.01 - 0.11 K/cmm 04/26/2020 2:10 EDT [facility] Blood VENOUS BLOOD / Unknown Venipuncture / Unknown 04/26/2020 0:14 EDT 04/26/2020 0:19 EDT Laurent Douglas MD HEMATOLOGY & PF4 ORDE RABLES Final Result [facility] [address] [place] [address] * SCREENING GLUCOSE (04/26/2020 0:14 EDT) Glucose, Screening 87 70 - 100 mg/dL 04/26/2020 1:28 EDT [facility] Blood VENOUS BLOOD / Unknown Venipuncture / Unknown 04/26/2020 0:14 EDT 04/26/2020 0:19 EDT Laurent Douglas MD CHEMISTRY & BLOOD GAS ORDERABLES Final Result Performing Organization Address City/[facility]/ZIP Co de Phone Number [facility] [address] [place] [address] * MAGNESIUM (04/26/2020 0:14 EDT) Magnesium 1.8 1.7 - 2.8 mg/dL 04/26/2020 1:28 EDT [facility] Blood VENOUS BLOOD / Unknown Venipuncture / Unknown 04/26/2020 0:14 EDT 04/26/2020 0:19 EDT Laurent Douglas MD CHEMISTRY & BLOOD GAS ORDERABLES Final Result Performing Organization Address City/[facility]/ZIP Co de Phone Number [facility] [address] [place] [address] * TROPONIN I (04/26/2020 0:14 EDT) Troponin I (ng/mL) <0.034 <0.034 ng/mL 04/26/2020 1:39 EDT [facility] Blood VENOUS BLOOD / Unknown Venipuncture / Unknown 04/26/2020 0:14 EDT 04/26/2020 0:19 EDT Narrative [facility] - 04/26/2020 1:39 EDT The results of this assay can be falsely lowered due to the consumption of Biotin. Laurent Douglas MD CHEMISTRY & BLOOD GAS ORDERABLES Final Result Performing Organization Address [facility] Co de Phone Number [facility] [address] [place] [address] * (ABNORMAL) ELECTROLYTES (04/26/2020 0:14 EDT) Sodium 136 136 - 145 mEq/L 04/26/2020 1:36 EDT [facility] Potassium 4.1 3.5 - 5.0 mEq/L 04/26/2020 1:36 EDT [facility] Comment: NOTE: Interpret with caution. Prolonged sample storage may alter the result. Chloride 104 96 - 110 mEq/L 04/26/2020 1:36 EDT [facility] CO2 Total 21(L) 22 - 32 mEq/L 04/26/2020 1:36 EDT [facility] Comment: NOTE: Interpret with caution. Prolonged sample storage may alter the result. Blood VENOUS BLOOD / Unknown Venipuncture / Unknown 04/26/2020 0:14 EDT 04/26/2020 0:19 EDT Laurent Douglas MD CHEMISTRY & BLOOD GAS ORDERABLES Final Result Performing Organization Address [facility] Co de Phone Number [facility] [address] [place] [address] * CREATININE (04/26/2020 0:14 EDT) Creatinine 0.76 0.52 - 1.04 mg/dL 04/26/2020 1:28 EDT [facility] eGFR 86 >60 mL/min/1.7 3m2 04/26/2020 1:28 EDT [facility] Comment:eGFR calculated lobito coppola CKD-EPI equation for non- Americans. Multiply eGFR by 1.16 for patients. Blood VENOUS BLOOD / Unknown Venipuncture / Unknown 04/26/2020 0:14 EDT 04/26/2020 0:19 EDT Laurent Douglas MD CHEMISTRY & BLOOD GAS ORDERABLES Final Result Performing Organization Address [facility] Co de Phone Number [facility] [address] [place] [address] * BUN (04/26/2020 0:14 EDT) [facility] BUN 15 10 - 26 mg/dL 04/26/2020 1:28 EDT [facility] Blood VENOUS BLOOD / Unknown Venipuncture / Unknown 04/26/2020 0:14 EDT 04/26/2020 0:19 EDT Laurent Douglas MD CHEMISTRY & BLOOD GAS ORDERABLES Final Result Performing Organization Address [facility] de Phone Number [facility] [address] [place] [address] * (ABNORMAL) COMPLETE BLOOD COUNT AND DIFFERENTIAL (04/26/2020 0:14 EDT) [facility] WBC 1.36(L) 4.00 - 12.40 K/cmm 04/26/2020 1:57 [facility] RBC 3.85(L) 3.86 - 5.04 M/cmm 04/26/2020 1:57 [facility] Hemoglobin 11.8 11.6 - 15.2 gm/dL 04/26/2020 1:57 T [facility] HCT 34.1(L) 34.9 - 44.4 % 04/26/2020 1:57 [facility] MCV 89 81 - 98 fl 04/26/2020 1:57 [facility] MCH 30.6 26.7 - 33.3 pg 04/26/2020 1:57 [facility] MCHC 34.6 32.1 - 35.9 gm/dL 04/26/2020 1:57 EDT [facility] RDW-CV 13.9 <14.7 % 04/26/2020 1:57 EDT [facility] RDW-SD 44.9 <50.4 fl 04/26/2020 1:57 EDT [facility] PLT 41(L) 141 - 377 K/cmm 04/26/2020 1:57 EDT [facility] MPV 10.8 9.5 - 12.7 fl 04/26/2020 1:57 EDT [facility] Type of Differential: Manual 04/26/2020 1:57 EDT [facility] Blood VENOUS BLOOD / Unknown Venipuncture / Unknown 04/26/2020 0:14 EDT 04/26/2020 0:19 EDT us Laurent Douglas MD PACKAGES & DNA PROBE ORDERABLES Final Result Performing Organization Address City/[facility]/ZIP Co de Phone Number [facility] [address] [place] [address] * HOLD SST (04/26/2020 0:14 EDT) Hold Hold 04/26/2020 1:30 EDT [facility] Blood VENOUS BLOOD / Unknown Venipuncture / Unknown 04/26/2020 0:14 EDT 04/26/2020 0:19 EDT us Laurent Douglas MD LAB INFO SERVICE AND SUPPORT & PHONE RESULT Final Result [facility] [address] [place] [address] * HOLD LAVENDER TOP (04/26/2020 0:14 EDT) Hold Hold 04/26/2020 1:30 EDT [facility] Blood VENOUS BLOOD / Unknown Venipuncture / Unknown 04/26/2020 0:14 EDT 04/26/2020 0:19 EDT us Laurent Douglas MD LAB INFO SERVICE AND SUPPORT & PHONE RESULT Final Result [facility] [address] [place] [address] * HOLD GREEN TOP (04/26/2020 0:14 EDT) Hold Hold 04/26/2020 1:30 EDT [facility] Blood VENOUS BLOOD / Unknown Venipuncture / Unknown 04/26/2020 0:14 EDT 04/26/2020 0:19 EDT us Laurent Douglas MD LAB INFO SERVICE AND SUPPORT & PHONE RESULT Final Result [facility] [address] [place] [address] * HOLD BLUE TOP (04/26/2020 0:14 EDT) Hold Hold 04/26/2020 1:30 EDT [facility] Blood VENOUS BLOOD / Unknown Venipuncture / Unknown 04/26/2020 0:14 EDT 04/26/2020 0:19 EDT us Laurent Douglas MD LAB INFO SERVICE AND SUPPORT & PHONE RESULT Final Result Performing Organization Address [facility] Co de Phone Number [facility] [address] [place] [address] * POCT US ED THORACIC (04/26/2020 0:01 EDT) Anatomical Region Laterality Modality Ultrasound 04/26/2020 0:04 EDT Narrative 04/26/2020 0:51 EDT [facility] - Ultrasound Exam Date: 04/26/2020 Exam Type: POCT US ED THORACIC Newspaper Columnist: Laurent Douglas MD Attending: N/A Worksheet: [id number] (POCT US ED THORACIC) Exam Information: ?? Exam type: Clinically indicated Indication(s) for Exam: ?? The exam was performed with the following indications: Dyspnea Views: ?? Right lateral / inferior thorax: adequate ?? Right anterior / superior thorax: adequate ?? Left lateral / inferior thorax: adequate ?? Left anterior / superior thorax: adequate Findings: ?? Lung sliding: present ?? Interstitium: a-lines: present ?? Interstitium: b-lines: present ?? Inferior / lateral region: present (greater than 3 per view) ?? Pleural effusion: absent ?? Lung sliding: present ?? Interstitium: a-lines: present ?? Interstitium: b-lines: present ?? Inferior / lateral region: present (greater than 3 per view) ?? Pleural effusion: absent Interpretation: ?? Alveolar interstitial syndrome: Diffuse ?? Other: mild interstitial edema lower lung godwin Confirmatory study: ?? What confirmatory study was done?: Xray ?? Confirmatory study findings: mild edema US POCUS Preliminary Signature: ?? POCUS Preliminary Signature: Not signed Physician Signature: ?? I review and approve of the documentation above.: Signed by Laurent Douglas MD on Sunday, April 26, 2020 at 12:51:19 AM This exam was performed and interpreted by the [facility] Staff Procedure Note Laurent Douglas MD - 04/26/2020 [facility] - Ultrasound Exam Date: 04/26/2020 Exam Type: POCT US ED THORACIC Newspaper Columnist: Laurent Douglas MD Attending: N/A Worksheet: [id number] (POCT US ED THORACIC) Exam Information: Exam type: Clinically indicated Indication(s) for Exam: The exam was performed with the following indications: Dyspnea Views: Right lateral / inferior thorax: adequate Right anterior / superior thorax: adequate Left lateral / inferior thorax: adequate Left anterior / superior thorax: adequate Findings: Lung sliding: present Interstitium: a-lines: present Interstitium: b-lines: present Inferior / lateral region: present (greater than 3 per view) Pleural effusion: absent Lung sliding: present Interstitium: a-lines: present Interstitium: b-lines: present Inferior / lateral region: present (greater than 3 per view) Pleural effusion: absent Interpretation: Alveolar interstitial syndrome: Diffuse Other: mild interstitial edema lower lung godwin Confirmatory study: What confirmatory study was done?: Xray Confirmatory study findings: mild edema US POCUS Preliminary Signature: POCUS Preliminary Signature: Not signed Physician Signature: I review and approve of the documentation above.: Signed by Jazmyne PHIPPS on Sunday, April 26, 2020 at 12:51:19 AM This exam was performed and interpreted by the [facility] Staff us Laurent Douglas MD IMG POCT US ORDERABLE S Final Result * EKG 12-LEAD (04/25/2020 23:48 EDT) 04/25/2020 23:4 8 EDT Narrative [facility] EKG - 04/28/2020 14:36 EDT ?[facility] Emergency ? Test Date: ?2020-04-25 Pat Name: ? PHYLISS BOOTHE ?Department: ?? ED ? Room: ? GT21 Gender: ? Female ? 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 [id number] : ?1960 ? Requested By: MOO MONTOYA Order Number: [id number] ? Reading : ?? KERMIT CUBA MD ? Measurements Intervals ?Cook [place] ? Rate: ? 98 ? P: ?81 WV: ? 164 ?QRS: ?94 QRSD: ? 93 ? T: ?86 QT: ? 357 ? QTc: ?456 ? Interpretive Statements SINUS RHYTHM BORDERLINE RIGHT AXIS DEVIATION POSSIBLE ANTERIOR MYOCARDIAL INFARCTION, OF INDETERMINATE AGE WARNING: DATA QUALITY MAY AFFECT INTERPRETATION Compared to ECG 04/19/2020 11:25:56 Myocardial infarct finding now present I reviewed the tracing and have either agreed or edited the findings in this report. Electronically Signed On 04-28-2020 14:36:02 EDT by KERMIT CUBA MD. Procedure Note Kermit Cuba MD - 04/28/2020 [facility] Emergency Test Date: 2020-04-25 Pat Name: TARA BOOTHE Department: ED Room: [facility] Gender: Female Battery Tester And Repairer: [id number] : 1960 Requested By: MOO TRIMBLE Order Number: [id number] Reading MD: KERMIT CUBA MD Measurements Intervals Cook Sta Rate: 98 P: 81 WV: 164 QRS: 94 QRSD: 93 T: 86 QT: 357 QTc: 456 Interpretive Statements SINUS RHYTHM BORDERLINE RIGHT AXIS DEVIATION POSSIBLE ANTERIOR MYOCARDIAL INFARCTION, OF INDETERMINATE AGE WARNING: DATA QUALITY MAY AFFECT INTERPRETATION Compared to ECG 04/19/2020 11:25:56 Myocardial infarct finding now present I reviewed the tracing and have either agreed or edited the findings inthis report. Electronically Signed On 04-28-2020 14:36:02 EDT by KERMIT RICH. us Laurent Douglas MD CARDIAC ECG ORDERABLE S Final Result [facility] EKG documented in this encounter Visit Diagnoses Diagnosis Dyspnea- Primary Other dyspnea and respiratory abnormality COPD exacerbation (HCC-CMS) Obstructive chronic bronchitis with exacerbation Respiratory distress Other dyspnea and respiratory abnormality Dyspnea, unspecified type HUEY (obstructive sleep apnea) Obstructive sleep apnea (adult) (pediatric) Acute congestive heart failure, unspecified heart failure type (HCC-CMS) Cirrhosis of liver without ascites, unspecified hepatic cirrhosis type (HCC-CMS) Pancytopenia (HCC-CMS) Other pancytopenia Hypothyroidism, unspecified type Thrombocytopenia (HCC-CMS) Thrombocytopenia, unspecified Anxiety Anxiety state, unspecified Chronic respiratory failure with hypoxia (HCC-CMS) Chronic respiratory failure Recurrent major depressive disorder, remission status unspecified (HCC-CMS) HUEY (obstructive sleep apnea) Obstructive sleep apnea (adult) (pediatric) COPD exacerbation (HCC-CMS) Obstructive chronic bronchitis with exacerbation Respiratory distress Other dyspnea and respiratory abnormality Cirrhosis of liver (HCC-CMS) Cirrhosis of liver without mention of alcohol Obesity, Class II, BMI 35-39.9 Obesity, unspecified Pancytopenia (HCC-CMS) Other pancytopenia Mild persistent asthma without complication Unspecified asthma documented in this encounter Admitting Diagnoses Diagnosis HUEY (obstructive sleep apnea) Obstructive sleep apnea (adult) (pediatric) documented in this encounter Administered Medications Inactive Administered Medications - up to 3 most recent administrations Medication Order MAR Action Action Date Dose Rate Site acetaminophen (TYLENOL) tablet 650 mg 650 mg, oral, EVERY 8 HOURS PRN, Starting on 04/26/20 at 1449, Until 04/28/20 at 1929, Pain, Routine Given 04/28/2020 9:30 EDT 650 mg Given 04/27/2020 13:22 EDT 650 mg Given 04/26/2020 15:55 EDT 650 mg albuterol 90 mcg/actuation inhaler 1 dose, Starting on Tue04/25/20 at 2342, Until Tue04/25/20 at 2352 Given 04/25/2020 23:52 EDT 2 Puffs albuterol inhaler 2 Puff 2 Puff, inhalation, EVERY 4 HOURS PRN, Starting on 04/26/20 at 0405, Until 04/28/20 at 1929, Wheezing, Shortness of Breath, Routine Given 04/26/2020 14:35 EDT 2 Puffs Cholecalciferol (Vitamin D3) tablet 400 Units 400 Units, oral, DAILY, First dose on 04/26/20 at 0900, Until Discontinued Given 04/28/2020 9:33 EDT 400 Units Given 04/27/2020 8:29 EDT 400 Units Given 04/26/2020 8:44 EDT 400 Units ferrous gluconate (FERGON) tablet 324 mg 324 mg, oral, DAILY WITH DINNER, First dose (after last modification) on 04/26/20 at 1700, Until Discontinued, Routine Given 04/27/2020 17:51 EDT 324 mg Given 04/26/2020 20:18 EDT 324 mg furosemide (LASIX) injection 20 mg 20 mg, intravenous, NOW X1, 1 dose, On 04/26/20 at 0100, STAT Given 04/26/2020 0:58 EDT 20 mg furosemide (LASIX) tablet 20 mg 20 mg, oral, DAILY, First dose on 04/26/20 at 1400, Until Discontinued, Routine Given 04/28/2020 9:30 EDT 20 mg Given 04/27/2020 8:29 EDT 20 mg Given 04/26/2020 14:30 EDT 20 mg hydrOXYzine (ATARAX) tablet 25 mg 25 mg, oral, AT BEDTIME PRN, Starting on 04/26/20 at 1339, Until 04/28/20 at 1929, Anxiety, Routine Given 04/27/2020 21:20 EDT 25 mg Given 04/26/2020 14:30 EDT 25 mg ipratropium-albuteroL (DUONEB) 0.5 mg-3 mg(2.5 mg base)/3 mL nebulizer solution 3 mL 3 mL, nebulization, NOW X1, 1 dose, On 04/26/20 at 0015, STAT Given 04/26/2020 0:15 EDT 3 mL ipratropium-albuteroL (DUONEB) 0.5 mg-3 mg(2.5 mg base)/3 mL nebulizer solution 3 mL 3 mL, nebulization, EVERY 8 HOURS PRN, Starting on 04/28/20 at 1238, Until Tue04/28/20 at 1929, Wheezing, Routine Given 04/28/2020 13:12 EDT 3 mL ipratropium-albuteroL (DUONEB) 0.5 mg-3 mg(2.5 mg base)/3 mL nebulizer solution 1 dose, Starting on Tue04/25/20 at 2358, Until 04/26/20 at 0000 Given 04/26/2020 0:00 EDT 3 mL lactulose (CHRONULAC) 20 gram/30 mL solution 30 mL 30 mL, oral, 2 TIMES DAILY, First dose on 04/26/20 at 1130, Until Discontinued, Routine Given 04/28/2020 9:32 EDT 30 mL Given 04/27/2020 21:20 EDT 30 mL Given 04/27/2020 8:28 EDT 30 mL levothyroxine (SYNTHROID) tablet 25 mcg 25 mcg, oral, DAILY BEFORE BREAKFAST, First dose on 04/26/20 at 0700, Until Discontinued Given 04/28/2020 6:21 EDT 25 mc g Given 04/27/2020 6:39 EDT 25 mcg Given 04/26/2020 8:44 EDT 25 mcg LORazepam (ATIVAN) 2 mg/mL injection 1 dose, Starting on Tue04/25/20 at 2358, Until 04/26/20 at 0003 LORazepam (ATIVAN) injection 0.5 mg 0.5 mg, intravenous, NOW X1, 1 dose, On 04/26/20 at 0015, STAT Given 04/26/2020 0:03 EDT 0.5 mg LORazepam (ATIVAN) injection 0.5 mg 0.5 mg, intravenous, NOW X1, 1 dose, On 04/26/20 at 0015, STAT Given 04/26/2020 0:16 EDT 0.5 mg methylPREDNISolone sod suc(PF) (SOLU-MEDROL) injection 125 mg 125 mg, intravenous, NOW X1, 1 dose, On 04/26/20 at 0015, STAT Given 04/26/2020 0:09 EDT 125 mg mometasone-formoterol (DULERA) 200-5 mcg/actuation inhaler 2 Puff 2 Puff, inhalation, 2 TIMES DAILY, First dose on 04/26/20 at 0900, Until Discontinued Given 04/26/2020 9:50 EDT 2 Puf fs mometasone-formoterol (DULERA) 200-5 mcg/actuation inhaler 2 Puff 2 Puff, inhalation, 2 TIMES DAILY, First dose (after last modification) on Tue04/26/20 at 2100, Until Discontinued Given 04/28/2020 9:31 EDT 2 Puffs Given 04/27/2020 21:19 EDT 2 Puffs Given 04/27/2020 8:35 EDT 2 Puffs ondansetron (ZOFRAN) solution 2 mg 2 mg, oral, 2 TIMES DAILY PRN, Starting on Tue04/26/20 at 0405, Until Tue04/28/20 at 1929, Nausea Given 04/28/2020 9:36 EDT 2 mg Given 04/27/2020 8:34 EDT 2 mg Given 04/26/2020 10:59 EDT 2 mg polyethylene glycol 3350 (MIRALAX) packet 17 g 17 g, oral, DAILY PRN, Starting on Tue04/28/20 at 1206, Until Tue04/28/20 at 1929, Constipation, Routine Given 04/28/2020 13:29 EDT 17 g predniSONE (DELTASONE) tablet 40 mg 40 mg, oral, DAILY, 4 doses, First dose on Tue04/26/20 at 1400, Last dose on Tue04/29/20 at 0900, Routine Given 04/27/2020 8:29 EDT 40 mg Given 04/26/2020 14:30 EDT 40 mg predniSONE (DELTASONE) tablet 40 mg 40 mg, oral, DAILY, 3 doses, First dose on Tue04/28/20 at 0900, Last dose on Tue04/30/20 at 0900, Routine Given 04/28/2020 9:33 EDT 40 mg sertraline (ZOLOFT) tablet 25 mg 25 mg, oral, DAILY, First dose on Tue04/26/20 at 1400, Until Discontinued, Routine Given 04/28/2020 9:32 EDT 25 mg Given 04/27/2020 8:29 EDT 25 mg Given 04/26/2020 14:30 EDT 25 mg spironolactone (ALDACTONE) tablet 50 mg 50 mg, oral, DAILY, First dose on Tue04/26/20 at 0900, Until Discontinued, Routine Given 04/28/2020 9:32 EDT 50 mg Given 04/27/2020 8:29 EDT 50 mg Given 04/26/2020 8:44 EDT 50 mg tamsulosin (FLOMAX) capsule 0.4 mg 0.4 mg, oral, DAILY, First dose on 04/26/20 at 0900, Until Discontinued, Routine Given 04/28/2020 9:30 EDT 0.4 mg Given 04/27/2020 8:29 EDT 0.4 mg Given 04/26/2020 8:44 EDT 0.4 mg traZODone (DESYREL) tablet 100 mg 100 mg, oral, AT BEDTIME PRN, Starting on 04/26/20 at 1340, Until 04/28/20 at 1929, Sleep, Routine Given 04/27/2020 21:20 EDT 100 mg Given 04/26/2020 20:22 EDT 100 mg documented in this encounter Discontinued Medications Medication Sig Discontinue Reason Start Date End Da te traMADoL (ULTRAM) 50 mg tablet Take 1 Tab by mouth every 6 hours as needed for Pain. Daily Max: 200 mg 02/18/2020 04/26/2020 traZODone (DESYREL) 100 mg tablet Take 150 mg by mouth at bedtime as needed. 04/28/2020 documented as of this encounter Active and Recently Administered Medications Times are shown in EDT. Scheduled Medication Order 04/26/2020 04/27/2020 04/28/2020 Cholecalciferol (Vitamin D3) tablet 400 Units 400 Units, oral, DAILY, First dose on 04/26/20 at 0900, Until Discontinued 0844 (Given - Provider: Anthony Ramos RN) 0829 (Given - Provider: Anthony Ramos RN) 0933 (Given - Provider: Adeline Sena RN) ferrous gluconate (FERGON) tablet 324 mg 324 mg, oral, DAILY WITH DINNER, First dose (after last modification) on 04/26/20 at 1700, Until Discontinued, Routine 2017 (Given - Provider: Mona Ortez RN - Comment: at dinner late) 175 (Given - Provider: Marsha Hamm RN) 1700 (Canceled Entry - Provider: Batch Job User Admin - Comment: Automatically canceled at discontinue of medication order) furosemide (LASIX) injection 20 mg (COMPLETED) 20 mg, intravenous, NOW X1, 1 dose, On 04/26/20 at 0100, STAT 0058 (Given - Provider: Beba Long, KENN) furosemide (LASIX) tablet 20 mg 20 mg, oral, DAILY, First dose on 04/26/20 at 1400, Until Discontinued, Routine 1430 (Given - Provider: Adeline Sena, RN) 0829 (Given - Provider: Anthony Ramos RN) 0930 (Given - Provider: Adeline Sena RN) ipratropium-albuteroL (DUONEB) 0.5 mg-3 mg(2.5 mg base)/3 mL nebulizer solution 3 mL (COMPLETED) 3 mL, nebulization, NOW X1, 1 dose, On 04/26/20 at 0015, STAT 0015 (Given - Provider: Carmen Hough, RT) lactulose (CHRONULAC) 20 gram/30 mL solution 30 mL 30 mL, oral, 2 TIMES DAILY, First dose on 04/26/20 at 1130, Until Discontinued, Routine 1430 (Given - Provider: Adeline Sena, KENN)2018 (Given - Provider: Mona Ortez RN) 0828 (Given - Provider: Anthony Ramos RN)2120 (Given - Provider: Jhoan Heredia, RN) 0932 (Given - Provider: Adeline Sena, KENN) levothyroxine (SYNTHROID) tablet 25 mcg 25 mcg, oral, DAILY BEFORE BREAKFAST, First dose on 04/26/20 at 0700, Until Discontinued 0844 (Given - Provider: Anthony Ramos, RN) 0639 (Given - Provider: Mona Ortez RN) 0621 (Given - Provider: Jhoan Heredia, RN) LORazepam (ATIVAN) injection 0.5 mg (COMPLETED) 0.5 mg, intravenous, NOW X1, 1 dose, On 04/26/20 at 0015, STAT 0003 (Given - Provider: Elle Harrison, KENN) LORazepam (ATIVAN) injection 0.5 mg (COMPLETED) 0.5 mg, intravenous, NOW X1, 1 dose, On 04/26/20 at 0015, STAT 0016 (Given - Provider: Elle Harrison, KENN) methylPREDNISolone sod suc(PF) (SOLU-MEDROL) injection 125 mg (COMPLETED) 125 mg, intravenous, NOW X1, 1 dose, On 04/26/20 at 0015, STAT 0009 (Given - Provider: Elle Harrison, KENN) mometasone-formoterol (DULERA) 200-5 mcg/actuation inhaler 2 Puff (CANCELED) 2 Puff, inhalation, 2 TIMES DAILY, First dose on 04/26/20 at 0900, Until Discontinued 0950 (Given - Provider: Semaj Fagan, RT) mometasone-formoterol (DULERA) 200-5 mcg/actuation inhaler 2 Puff 2 Puff, inhalation, 2 TIMES DAILY, First dose (after last modification) on 04/26/20 at 2100, Until Discontinued 2017 (Given - Provider: Mona Ortez RN) 08 (Given - Provider: Anthony Ramos RN)2118 (Given - Provider: Jhoan Heredia RN) 0931 (Given - Provider: Adeline Sena RN) predniSONE (DELTASONE) tablet 40 mg (CANCELED) 40 mg, oral, DAILY, 4 doses, First dose on Tue04/26/20 at 1400, Last dose on Tue04/29/20 at 0900, Routine 1430 (Given - Provider: Adeline Sena RN) 08 (Given - Provider: Anthony Ramos RN) predniSONE (DELTASONE) tablet 40 mg 40 mg, oral, DAILY, 3 doses, First dose on Tue04/28/20 at 0900, Last dose on Tue04/30/20 at 0900, Routine 0933 (Given - Provid er: Adeline Sena RN) sertraline (ZOLOFT) tablet 25 mg 25 mg, oral, DAILY, First dose on Tue04/26/20 at 1400, Until Discontinued, Routine 1430 (Given - Provider: Adeline Sena RN) 08 (Given - Provider: Anthony Ramos RN) 0932 (Given - Provider: Adeline Sena RN) spironolactone (ALDACTONE) tablet 50 mg 50 mg, oral, DAILY, First dose on Tue04/26/20 at 0900, Until Discontinued, Routine 0844 (Given - Provider: Anthony Ramos RN) 08 (Given - Provider: Anthony Ramos RN) 0932 (Given - Provider: Adeline Sena RN) tamsulosin (FLOMAX) capsule 0.4 mg 0.4 mg, oral, DAILY, First dose on Tue04/26/20 at 0900, Until Discontinued, Routine 0844 (Given - Provider: Anthony Ramos, RN) 0829 (Given - Provider: Anthony Ramos, RN) 0930 (Given - Provider: Adeline Sena RN) PRN Medication Order 04/26/2020 04/27/2020 04/28/2020 acetaminophen (TYLENOL) tablet 650 mg 650 mg, oral, EVERY 8 HOURS PRN, Starting on 04/26/20 at 1449, Until 04/28/20 at 1929, Pain, Routine 1555 (Given - Provider: Adeline Sena RN) 1322 (Given - Provider: Marsha Hamm RN) 0930 (Given - Provider: Adeline Sena RN) albuterol inhaler 2 Puff 2 Puff, inhalation, EVERY 4 HOURS PRN, Starting on 04/26/20 at 0405, Until 04/28/20 at 1929, Wheezing, Shortness of Breath, Routine 1435 (Given - Provider: Adeline Sena RN) hydrOXYzine (ATARAX) tablet 25 mg 25 mg, oral, AT BEDTIME PRN, Starting on 04/26/20 at 1339, Until 04/28/20 at 1929, Anxiety, Routine 1430 (Given - Provider: Adeline Sena RN) 2120 (Given - Provider: Jhoan Heredia RN) ipratropium-albuteroL (DUONEB) 0.5 mg-3 mg(2.5 mg base)/3 mL nebulizer solution 3 mL 3 mL, nebulization, EVERY 8 HOURS PRN, Starting on 04/28/20 at 1238, Until Tue04/28/20 at 1929, Wheezing, Routine 1312 (Given - Provider: Chan Cortes) lidocaine (PF) 10 mg/mL (1 %) injection 2 mg 2 mg, intradermal, PRN, 4 doses, Starting on 04/26/20 at 0405, Until 04/28/20 at 1929, peripheral intravenous catheter placement, Routine ondansetron (ZOFRAN) solution 2 mg 2 mg, oral, 2 TIMES DAILY PRN, Starting on 04/26/20 at 0405, Until 04/28/20 at 1929, Nausea 1059 (Given - Provider: Anthony Ramos RN) 0834 (Given - Provider: Anthony Ramos, RN) 0936 (Given - Provider: Adeline Sena, RN) polyethylene glycol 3350 (MIRALAX) packet 17 g 17 g, oral, DAILY PRN, Starting on 04/28/20 at 1206, Until 04/28/20 at 1929, Constipation, Routine 1329 (Given - Provider: Adeline Sena, RN) traZODone (DESYREL) tablet 100 mg 100 mg, oral, AT BEDTIME PRN, Starting on 04/26/20 at 1340, Until 04/28/20 at 1929, Sleep, Routine 2021 (Given - Provider: Mona Ortez RN) 2119 (Given - Provider: Jhoan Heredia, KENN) No Frequency Medication Order 04/26/2020 04/27/2020 04/28/2020 ipratropium-albuteroL (DUONEB) 0.5 mg-3 mg(2.5 mg base)/3 mL nebulizer solution (COMPLETED) 1 dose, Starting on Tue04/25/20 at 2358, Until 04/26/20 at 0000 0000 (Given - Provider: Carmen Hough, RT) documented in this encounter Orders Medications Ordered That Luc ht Not Have Been Administered Count Last Ordered Date First Ordered Date ferrous gluconate (FERGON) tablet 324 mg 1 04/26/2020 lidocaine (PF) 10 mg/mL (1 % ) injection 2 mg 1 04/26/2020 traZODone (DESYREL) tablet 150 mg 1 020 Diet Count Last Ordered Date First Orde red Date DISCHARGE DIET 1 04/28/2020 Nursing Count Last Ordered Date First Orde red Date ACTIVITY INSTRUCTIONS 1 04/28/2020 BATHING INSTRUCTIONS 1 04/28/2020 DRIVING INSTRUCTIONS 1 04/28/2020 INSERT PERIPHERAL IV 1 04/26/2020 MAINTAIN SEQUENTIAL COMPRESSION DEVICE 1 NURSING COMMUNICATION 1 04/26/2020 VITAL SIGNS 1 04/26/2020 Respiratory Care Count Last Ordered Date First Ordered Date DRY POWDERED OR METERED DOSE INHALER 1 04/2020 OVERNIGHT OXIMETRY- INPATIENT USE ONLY 1 Admission Count Last Ordered Date First Orde red Date ADMIT TO INPATIENT 1 04/27/2020 INITIATE OBSERVATION STATUS 1 04/26/2020 Transfer Count Last Ordered Date First Orde red Date ED BED REQUEST 1 04/26/2020 TEACHING SERVICE 1 04/26/2020 Discharge Count Last Ordered Date First Orde red Date DISCHARGE PATIENT 1 04/28/2020 Legal Count Last Ordered Date First Orde red Date MISCELLANEOUS DISCHARGE INSTRUCTIONS 06/2020 Equipment Count Last Ordered Date First Orde red Date HOME OXYGEN 1 04/28/2020 documented in this encounter Care Teams Nurse Charge Rn Relationship Specialty Start Date End Date Alma Farfan MD PCP - General 03/14/19 05/21/20 documented as of this encounter
--- OUTSIDE RECORDS SUMMARY | 2024-11-22 17:23 | XMS_ITS | Encounter Summary ---
Author Organization [facility] [place] Address [address] [place] [address] Care Team Providers Care Escapement Maker Name Role Phone Alma Farfan MD Primary Care Provider [phone] Encounter Details Date Type Department Care Team (Latest Contact Info) Description 03/05/2020 Travel Social History Tobacco Use Types Packs/Day [...] have Coronavirus / COVID-19? No / Unsure 03/05/2020 12:44 EDT documented as of this encounter Functional [...] Dana Alfaro RN documented in this encounter Plan of Treatment Upcoming Encounters Date Type Department Care Team (Late st Contact Info) Description 01/04/2025 13:00 EST Office Visit [facility] Ophthalmology - [address] [id number] Gagandeep Rome MD [address] [place] [address] [address] [place] [phone] 02/11/2025 13:30 EDT Telemedicine [facility] Hematology & Oncology [address] [phone] Dana Padilla MD [address] [place] [address], [address] [place] [phone] documented as of this encounter Visit Diagnoses Not on filedocumented in this encounter Care Teams Escapement Maker Relationship Specialty Start Date End Date Alma Farfan MD PCP - General 03/14/19 05/21/20 documented as of this encounter
--- OUTSIDE RECORDS SUMMARY | 2024-11-22 17:23 | XMS_ITS | Encounter Summary ---
Author Organization [facility] Address [address] [place] [address] Care Team Providers Care Chemical Instrumentation Officer Name Role Phone Alma Farfan MD Primary Care Provider [phone] Reason for Visit * Reason Onset Date Comments Pharmacy 02/19/2020 Encounter Details Date Type Department Care Team (Late st Contact Info) Description 02/19/2020 Telephone [facility] Urology - [address] [phone] Lon Ortez MD [address] [facility], [address] [place] [phone] Pharmacy Social History Tobacco Use Types Packs/Day Years [...] have Coronavirus / COVID-19? No / Unsure 02/18/2020 9:29 EDT documented as of this encounter Functional [...] Dana Alfaro RN documented in this encounter Miscellaneous Notes * Telephone Encounter - Joseline Arcos RN - 02/19/2020 1521 EDT TC to [facility]. Not a concern the sulfa allergy when related to Tamsulosin. * Telephone Encounter - Vanesa Rutledge - 02/19/2020 1508 EDT Please call to clarify allergy possibility to sulfa component documented in this encounter Plan of Treatment Upcoming Encounters Date Type Department Care Team (Late st Contact Info) Description 01/04/2025 13:00 EST Office Visit [facility] Ophthalmology - [address] [address] Gagandeep Rome MD [address] [facility], [address] [place] [phone] 02/11/2025 13:30 EDT Telemedicine [facility] Hematology & Oncology - [address] [address] Dana Padilla MD [address] [facility], [address] [place] [address] documented as of this encounter Visit Diagnoses Not on filedocumented in this encounter Care Teams Chemical Instrumentation Officer Relationship Specialty Start Date End Date Alma Farfan MD PCP - General 03/14/19 05/21/20 documented as of this encounter
--- OUTSIDE RECORDS SUMMARY | 2024-11-22 17:23 | XMS_ITS | Encounter Summary ---
Author Organization [facility] Address [address] [place] [address] Care Team Providers Care Phone Triage Specialist Name Role Phone Alma Farfan MD Primary Care Provider [phone] Reason for Visit * Reason Comments Shortness of Breath Subjective dyspnea s pavithra early this morning. Was woken from sleep by dyspnea. Denies chest pain/pressure/discomfort. Hx COPD and fluid around my heart. A&O. Respirations unlabored. Skin warm & dry. NAD. Anxious. Encounter Details Date Type Department Care Team (Late st Contact Info) Description 04/19/2020 10:37 EDT - 04/19/2020 18:17 EDT Emergency [facility] Emergency Department - [address] [address] Zully Salmon MD [address] [place] [address], [address] [place] [address] Shortness of breath (Primary Dx); Peripheral edema Discharge Disposition: Home or Self Care [...] 16:15 EST Sexual Orientation Not on file documented as of this encounter Last Filed Vital Signs Vital Sign Reading Time Taken Comments Blood Pressure 106/60 04/19/2020 1128 EDT Pulse - - Temperature 37.5 ??C (99.5 ??F) 04/19/2020 1034 EDT Respiratory Rate 15 04/19/2020 1128 EDT Oxygen Saturation 95% 04/19/2020 1128 EDT Inhaled Oxygen Concentration - - Weight 87.1 kg (192 lb) 04/19/2020 1034 EDT Height 165.1 cm (5' 5) 04/19/2020 1034 EDT Body Mass Index 31.95 04/19/2020 1034 EDT documented in this encounter Functional Status [...] Dana Alfaro RN documented in this encounter Discharge Instructions * Discharge Instructions* Zully Salmon MD - 04/19/2020 17:50 EDT Thank you for coming to the emergency department today. Your evaluation was very reassuring. You have no blood clot in your legs or in your lungs. There is no evidence for heart failure, fluid aroundthe heart, or heart attack. Continue to monitor your symptoms. Work with your primary care provideron the fluid as well as on anxiety control. Return to the emergency department at anytime for any ne w, changing, or worsening symptoms. documented in this encounter Medications at Time of Discharge albuterol 90 mcg/actuation inhaler Inhale 2 Puffs as directed every 4 hours as needed. 09/18/2021 ERGOCALCIFEROL, VITAMIN D2, (VITAMIN D ORAL) Take by mouth. 01/2021 ferrous gluconate (FERGON) 324 mg (38 mg iron) tablet Take 324 mg by mouth daily with breakfast. 04/23/2021 LEVOTHYROXINE SODIUM (LEVOTHYROXINE ORAL) Take 25 mcg by mouth daily. Unknown dose 11/03/2020 ondansetron (ZOFRAN) 4 mg tablet Take 4 mg by mouth 2 times daily as needed. 11/07/2019 07/15/2020 spironolactone (ALDACTONE) 25 mg tablet Take 50 mg by mouth daily. 06/23/2020 SYMBICORT 160-4.5 mcg/actuation HFA aerosol inhaler inhaler Inhale 2 Puffs as directed daily. 10/05/2019 06/20/2020 tamsulosin (FLOMAX) 0.4 mg capsule Take 1 Cap by mouth daily. 30 Cap 11 02/19/2020 12/04/2020 traMADoL (ULTRAM) 50 mg tablet Take 1 Tab by mouth every 6 hours as needed for Pain. Daily Max: 200 mg 8 Tab 02/18/2020 04/26/2020 traZODone (DESYREL) 100 mg tablet Take 150 mg by mouth at bedtime as needed. 04/28/2020 documented as of this encounter Discharge Disposition Disposition Code Departure Means Destination Home or Self Snf documented in this encounter ED Notes * Ele Cevallos RN - 04/19/2020 1740 EDT OOB to bathroom with steady gait, no complaints of pain, dizziness, or lightheadedness * Molly Hayward RN - 04/19/2020 1135 EDT Pt reports taking inahler x2 this morning along with 50mg (2tabs) additional spironolactone for 100mg total today, instructed by katty PHIPPS at [facility]. * Zully Salmon MD - 04/19/2020 1104 EDT This patient received an evaluation and medical screening exam for emergent medical conditions at the [facility] on 04/19/2020 Scribe attestation: This documentation is recorded by Zully Scott acting as Scribe under the direction and presence of Zully Salmon MD. Zully Salmon MD: I personally performed the services recorded by the scribe in my presence.I confirm the scribe's documentation has been reviewed by me to accurately and completely record mywork, treatment, procedures, and medical decision making. Chief Complaint Shortness of Breath HPI Tara Boothe is a 59 y.o. female with PMH including Mild persistent asthma, drug seeking behavior, CKD, Hypersplenism syndrome and bleeding disorder who presents to the ED for shortness of breath.Patient reports acute onset of SOB in the middle of the night. She states that her SOB is worse when laying flat and better when she is upright. Patient also reports that it improved when she went outside and got some fresh air. She endorsed that she felt there was an anxiety component to it and soshe waited until this morning before deciding to come in. She reports she has been treated for peripheral edema by her PCP, who told her to increase her spirolactone dose this morning. She feels thather peripheral edema has been worsening. Patient also endorses intermittent left, lateral chest discomfort and also describes episodic tingling in her bilateral feet that tracks to her mid calf and is sometimes associated with discoloration. She repots hx of seasonal allergies and states she has been affected by them this season. She states she has been using her home inhalers PRN. She denies fever, chills, cough, nausea, vomiting. 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 History was provided by: The patient and medical records. Patient's pertinent PMH, FH, SH were reviewed and updated PRN. ROS A 10 point review of systems has been performed and is otherwise negative except as noted in the HPI. Physical Exam Vital Signs Temp: 37.5 ??C (99.5 ??F) Temp src: Oral Heart Rate: 84 BPM Resp: 22 SpO2: 100 % BP: 114/69 BP Device: BP Machine BP Patient Position: Sitting BP Cuff Location: Left arm Nursing notes and vital signs were reviewed. Constitutional: Well appearing in no acute distress Eyes: Pupils equal and reactive to light, no scleral icterus Mouth: Moist oral mucosa without apparent lesions Neck: Full ROM, no cervical LAD Heart: RRR. Strong peripheral pulses Lungs: No Respiratory distress, Mild audible wheezing Abdomen: Soft, nontender, nondistended Skin: No overt rashes on exposed skin Extremities: Moving spontaneously, warm and well perfused. 1+ bilateral pitting edema, right lower extremity is slightly larger in girth than the left. Neuro: Grossly neurologically intact with normal speech Psych: No agitation or overt thought disorder Laboratory Results Labs Reviewed COMPLETE BLOOD COUNT AND DIFFERENTIAL - Abnormal Result Value Status WBC 1.42 (*) Final RBC 3.63 (*) Final Hemoglobin 11.3 (*) Final HCT 32.6 (*) Final MCV 90 Final MCH 31.1 Final MCHC 34.7 Final RDW-CV 13.8 Final RDW-SD 45.1 Final PLT 34 (*) Final MPV 10.7 Final Type of Differential: Manual Final COMPREHENSIVE METABOLIC PANEL (CMP) - Abnormal Sodium 133 (*) Final Potassium 4.9 Final Chloride 103 Final CO2 Total 27 Final Glucose 100 Final BUN 15 Final Creatinine 0.89 Final eGFR 71 Final Total Protein 6.9 Final Albumin 3.8 Final Alkaline Phosphatase 61 Final AST 31 Final ALT 16 Final Bilirubin, Total 1.0 Final Calcium 9.1 Final Calculated Calcium 9.3 Final D-DIMER - Abnormal D-Dimer 693 (*) Final Narrative: Cutoff value for the exclusion of DVT and PE: 230 ng/mL D-dimer units. Any use of the age-adjusted cutoff value is a post-analytic modification of this FDA- approved test and is considered off-labeluse of the test result. [facility] laboratory does not have literature to support the validity of an age-adjusted cutoff for our specific assay. DIFFERENTIAL, AUTOMATED MANUAL - Abnormal Neutrophils 76.5 Final Lymphocytes 15.7 Final Monocytes 6.1 Final Basophils 1.7 Final Absolute Neutrophils 1.09 (*) Final Absolute Lymphocytes 0.22 (*) Final Absolute Monocytes 0.09 (*) Final Absolute Basophils 0.02 Final NT PRO BNP - Normal NT-pro BNP 43 Final MAGNESIUM - Normal Magnesium 1.8 Final TROPONIN I - Normal Troponin I <0.034 Final Narrative: The results of this assay can be falsely lowered due to the consumption of Biotin. COVID-19 TESTING COVID-19 Result Negative Final Performing Lab [place] [facility] Lab Final COVID-19 TEST [facility] PCR Data Interpretation An EKG was obtained an independently interpreted: Sinus at 63 bpm, regular, normal axis, normal intervals, no ST elevations or depressions. Imaging obtained was reviewed and independently interpreted: Limited Thoracic Bedside Ultrasound: Findings include lungs were clear with A- lines. No substantialpericardial effusion and grossly normal squeeze. Images obtained, reviewed, and interpreted independently by myself. Please see formal report in the [facility] Images section. Images saved in PACS. The patient had a lower extremity venous duplex US which was significant for No evidence of deep venous thrombosis in either lower extremity. Patient had US that was obtained, reviewed, and interpreted by myself along with a radiologist. Please see radiology report for further details. The patient had a portable chest X-Ray which was significant for no radiographic evidence of acute cardiopulmonary disease. Patient had X-Ray that was obtained, reviewed, and interpreted by myself along with a radiologist. Please see radiology report for further details. The patient had a Angio chest PE protocol CT which was significant for No evidence of acute pulmonary embolus.There is redemonstration of the stigmata of cirrhosis and hepatosplenomegaly. Patient hadCT that was obtained, reviewed, and interpreted by myself along with a radiologist. Please see radiology report for further details. Laboratory results independently reviewed, significant for: D-dimer at 693, negative troponin, BNP wnl. Pancytopenia, consistent with prior labs. Negative Covid-19. Procedures Procedures None ED Course/Medical Decision Making A medical screening was performed. The patient is a 59 y.o. female with a history of Mild persistent asthma, drug seeking behavior, CKD, Hypersplenism syndrome and bleeding disorder who presents to the ED for shortness of breath. VSS upon arrival. Physical exam was significant for mild audible wheezing but no respiratory distress and 1+ bilateral pitting edema. Differential diagnosis includes but is not limited to COPD exacerbation, CHF, PE, less likely pneumonia, ACS or Covid-19. Patient's chest x-ray was negative and her US showed no evidence of DVT. The patient's CTA per PE protocol was negative. The patient's labs were reassuring including negative covid-19, and negative troponin. Although patient's D-dimer was elevated, both her US and CT were negative for evidence of thrombosis. Patient's oxygen saturations have been in the high 90s on room air for the duration of her ED stay.She has not exhibited any respiratory distress. She has been ambulating without difficulty. Although possible that this represents a COPD exacerbation, I would expect that her shortness of breath would have persisted after presentation to the ED, but it has resolved. The patient was discharged in stable condition. She feels her symptoms are evans to anxiety and will discuss management of her diuretics as well as her anxiety with her primary care provider next week. While under my care in the Emergency [...] Clinical Impression Final diagnoses: Shortness of breath Peripheral edema Disposition Discharged The patient's pain was managed to an adequate level weighing risk vs. benefit of further medications. Any further pain treatment will be at the discretion of the provider following up with the patient based on their clinical assessment. * Ele Cevallos RN - 04/19/2020 1058 EDT Provider at bedside for evaluation and US * Tomasz Shelton RN - 04/19/2020 1034 EDT Chief Complaint Patient presents with ??? Shortness of Breath Subjective dyspnea since early this morning. Was woken from sleep by dyspnea. Denies chest pain/pressure/discomfort. Hx COPD and fluid around my heart. A&O. Respirations unlabored. Skin warm & dry. NAD. Anxious. documented in this encounter Plan of Treatment Upcoming Encounters Date Type Department Care Team (Late st Contact Info) Description 01/04/2025 13:00 EST Office Visit [facility] Ophthalmology - [address] [id number] Gagandeep Rome MD [address] [place] [address] 5 [place] [phone] 02/11/2025 13:30 EDT Telemedicine [facility] Hematology & Oncology - [address] [id number] Dana Padilla MD [address] [place] [address] 2 [place] [phone] Pending Results Name Type Priority Associated Diagnoses Date /Time POCT US ED THORACIC Imaging STAT 04/19 10:49 EDT POCT US ED GUIDANCE PIV Imaging STAT 0 04/19/2020 12:05 EDT POCT US ED GUIDANCE PIV Imaging STAT 0 04/19/2020 12:41 EDT Scheduled Orders Name Type Priority Associated Diagnoses Orde r Schedule POCT US ED THORACIC Imaging STAT One T eugenio for 1 Occurrences starting 04/19/2020 until 04/19/2020 POCT US ED GUIDANCE PIV Imaging STAT One Time for 1 Occurrences starting 04/19/2020 until 04/19/2020 POCT US ED GUIDANCE PIV Imaging Routine One Time for 1 Occurrences starting 04/19/2020 until 04/19/2020 documented as of this encounter Procedures Procedure Name Priority Date/Time Associated Diagnosis Comments ECG REPORT - SCANNED 05/07/2020 9:[address] ANGIO CHEST PE PROTOCOL STAT 04/19/2020 16:20 EDT US LOWER VENOUS DUPLEX (DVT) BILATERAL STAT 04/19/2020 15:49 EDT POCT US ED GUIDANCE PIV STAT 04/19/2020 14:51 EDT DIFFERENTIAL, AUTOMATED MANUAL Today 04/19/2020 13:54 EDT D-DIMER STAT 04/19/2020 13:54 EDT COMPLETE BLOOD COUNT AND DIFFERENTIAL STAT 04/19/2020 13:54 EDT XR CHEST PORTABLE 1 VIEW STAT 04/19/2020 11:46 EDT EKG 12-LEAD STAT 04/19/2020 11:25 EDT ZZCOVID-19 TEST [facility] PCR STAT 04/19/2020 11:25 EDT COVID-19 TESTING STAT 04/19/2020 11:2 5 EDT TROPONIN I STAT 04/19/2020 11:25 EDT NT PRO BNP STAT 04/19/2020 11:25 EDT MAGNESIUM STAT 04/19/2020 11:25 EDT COMPREHENSIVE METABOLIC PANEL (CMP) STAT 04/19/2020 11:25 EDT documented in this encounter Results * ECG REPORT - SCANNED (05/07/2020 9:35 EDT) 05/07/2020 9:35 EDT us Scan 2 Wrist Hemmer PROCEDURE/MINOR SURGICAL OR DERABLES Final Result * CT ANGIO CHEST PE PROTOCOL (04/19/2020 16:20 EDT) Anatomical Region Laterality Modality Chest Computed Tomogra phy 04/19/2020 19:4 0 EDT Impressions 04/19/2020 19:40 EDT 1. No evidence of pulmonary embolus. 2. Mild hydrostatic pulmonary edema and left ventricular chamber measuring at the upper limits of normal.. 3. Known cirrhosis and findings of portal hypertension within the upper abdomen. I have personally reviewed the images and the above interpretation and agree with the findings. Narrative 04/19/2020 19:[address] ANGIO CHEST PE PROTOCOL ??04/19/2020 4:05 PM Clinical History/Comments: Shortness of breath [...] description: CTA of the chest Comparison: CT angiogram chest November [...] esophagus appears normal. Heart and mediastinal vasculature: ??The left ventricle measures at the upper limits of normal. Coronary and aortic atherosclerosis. Large airways: ??The mild diffuse large airways thickening. Lungs: There is interlobular septal thickening within the lower lobes and prominence of the fissures. Linear regions of atelectasis/scar within the lingula and anterior segment of the left upper lobe. There is a cyst within the anterior segment of the left upper lobe as well (#183). Pleura: No significant abnormalities. Upper abdomen (limited to upper abdomen, not optimized for abdominal imaging): Redemonstration of cirrhosis, findings of portal hypertension and hepatosplenomegaly. Bones: ??No significant abnormalities. Procedure Note Lazaro Cook MD - 04/19/2020 CT ANGIO CHEST PE PROTOCOL 04/19/2020 [...] description: CTA of the chest Comparison: CT angiogram chest November 26, 2019. Findings: Opacification of the pulmonary vasculature is good. No acute or chronicemboli are seen within the pulmonary arterial vasculature. Lower neck: No abnormalities. Chest wall soft tissues: No abnormalities. Mediastinum and leobardo: Stable more numerous than normal mediastinal lymphnodes as well as mild stranding of the superior mediastinal fat in theprevascular region (#79). Additional stable anterior juxtaphrenic lymphnodes (axial #308). The esophagus appears normal. Heart and mediastinal vasculature: The left ventricle measures at theupper limits of normal. Coronary and aortic atherosclerosis. Large airways: The mild diffuse large airways thickening. Lungs: There is interlobular septal thickening within the lower lobes andprominence of the fissures. Linear regions of atelectasis/scar within thelingula and anterior segment of the left upper lobe. There is a cystwithin the anterior segment of the left upper lobe as well (#183). Pleura: No significant abnormalities. Upper abdomen (limited to upper abdomen, not optimized for abdominalimaging): Redemonstration of cirrhosis, findings of portal hypertensionand hepatosplenomegaly. Bones: No significant abnormalities. IMPRESSION 1. No evidence of pulmonary embolus. 2. Mild hydrostatic pulmonary edema and left ventricular chamber measuringat the upper limits of normal.. 3. Known cirrhosis and findings of portal hypertension within the upperabdomen. I have personally reviewed the images and the above interpretation andagree with the findings. Zully Salmon MD IMG CT ORDERABLES Final Re sult * US LOWER VENOUS DUPLEX (DVT) BILATERAL (04/19/2020 15:49 EDT) Anatomical Region Laterality Modality Vascular Ultrasound 04/19/2020 20:2 8 EDT Impressions 04/19/2020 20:28 EDT No evidence of deep venous thrombosis in either lower extremity. I have personally reviewed the images and the above interpretation and agree with the findings. Narrative 04/19/2020 20:28 EDT US LOWER VENOUS DUPLEX (DVT) BILATERAL ??04/19/2020 3:15 PM SIGNS AND SYMPTOMS/COMMENTS: ??leg swelling COMPARISON: No relevant comparison. TECHNIQUE: Grayscale, [...] No evidence of subcutaneous edema. Procedure Note Lazaro Cook MD - 04/19/2020 US LOWER VENOUS DUPLEX (DVT) BILATERAL 04/19/2020 3:15 PM SIGNS AND SYMPTOMS/COMMENTS: leg swelling COMPARISON: No relevant comparison. TECHNIQUE: Grayscale, cine, color Doppler, and spectral tracing imageswere obtained of the deep venous system of both lower extremities. FINDINGS: RIGHT LEG: Deep veins above the knee: The external iliac vein, common femoral vein,proximal through distal femoral vein, and popliteal vein all demonstratenormal Doppler flow/waveforms and compression. Deep veins below the knee: The posterior tibial and peroneal veinsdemonstrate normal Doppler flow. Superficial veins: The proximal portion of the greater saphenous veindemonstrates normal Doppler flow/waveforms and compression. Other: No evidence of subcutaneous edema. LEFT LEG: Deep veins above the knee: The external iliac vein, common femoral vein,proximal through distal femoral vein, and popliteal vein all demonstratenormal Doppler flow/waveforms and compression. Deep veins below [...] interpretation andagree with the findings. us Zully Salmon MD IMG US VASCULAR ORDERABLES Final Result * POCT US ED GUIDANCE PIV (04/19/2020 14:51 EDT) Anatomical Region Laterality Modality Ultrasound 04/19/2020 14:5 8 EDT Narrative 04/27/2020 11:12 EDT [facility] - Ultrasound Exam Date: 04/19/2020 Exam Type: POCT US ED GUIDANCE PIV Inside Channel Account Manager: Ele Cevallos Attending: Wayne Talamantes MD Worksheet: [id number] (POCT US ED GUIDANCE PIV) Exam Information: ?? Ultrasound dynamic guidance was used for peripheral line insertion Exam Type: ?? Clinically Indicated Indication(s) for Exam: ?? The exam was performed with the following indications: Evaluation for a potential access site and selected vessel patency, Failed or difficult IV access Location: ?? Right ?? Specific site of peripheral line: Basilic vein Complications: ?? None Interpretation: ?? Successful U/S-guided peripheral line insertion Confirmatory study: ?? What confirmatory study was done?: Ultrasound (catheter visialized in lumen), IV patency confirmed by flushing without resistence or tissue infiltration, Ultrasound (bubbles from aggitated saline flush visualized in lumen) IV Team Signature: ?? I reviewed and approve this document for QA submission.: Signed by Ele Cevallos on Sunday, April 19, 2020 at 3:16:39 PM US POCUS Preliminary Signature: ?? POCUS Preliminary Signature: Signed by Wayne Talamantes MD on Monday, April 27, 2020 at 11:10:07 AM Physician Signature: ?? I review and approve of the documentation above.: Not signed This exam was performed and interpreted by the [facility] ED Staff Procedure Note Wayne Talamantes MD - 04/27/2020 [facility] - Ultrasound Exam Date: 04/19/2020 Exam Type: POCT US ED GUIDANCE PIV Inside Channel Account Manager: Ele Cevallos Attending: Wayne Talamantes MD Worksheet: [id number] (POCT US ED GUIDANCE PIV) Exam Information: Ultrasound dynamic guidance was used for peripheral line insertion Exam Type: Clinically Indicated Indication(s) for Exam: The exam was performed with the following indications: Evaluation for apotential access site and selected vessel patency, Failed or difficult IVaccess Location: Right Specific site of peripheral line: Basilic vein Complications: None Interpretation: Successful U/S-guided peripheral line insertion Confirmatory study: What confirmatory study was done?: Ultrasound (catheter visialized inlumen), IV patency confirmed by flushing without resistence or tissueinfiltration, Ultrasound (bubbles from aggitated saline flush visualizedin lumen) IV Team Signature: I reviewed and approve this document for QA submission.: Signed byEle Cevallos on Sunday, April 19, 2020 at 3:16:39 PM US POCUS Preliminary Signature: POCUS Preliminary Signature: Signed by Wayne Talamantes MD onSApril 27, 2020 at 11:10:07 AM Physician Signature: I review and approve of the documentation above.: Not signed This exam was performed and interpreted by the [facility] ED Staff us Zully Salmon MD IMG POCT US ORDERABLES Fin al Result * (ABNORMAL) DIFFERENTIAL, AUTOMATED MANUAL (04/19/2020 13:54 EDT) % Neutrophils 76.5 % 04/19/2020 14:54 EDT [facility] % Lymphocytes 15.7 % 04/19/2020 14:54 EDT [facility] % Monocytes 6.1 % 04/19/2020 14:54 EDT [facility] % Basophils 1.7 % 04/19/2020 14:54 EDT [facility] Absolute Neutrophils 1.09(L) 2.20 - 8.85 K/cmm 04/19/2020 14:54 EDT [facility] Absolute Lymphocytes 0.22(L) 1.09 - 3.30 K/cmm 04/19/2020 14:54 EDT [facility] Absolute Monocytes 0.09(L) 0.10 - 0.80 K/cmm 04/19/2020 14:54 EDT [facility] ABS Basophils 0.02 0.01 - 0.11 K/cmm 04/19/2020 14:54 EDT [facility] Blood VENOUS BLOOD / Unknown Venipuncture / Unknown 04/19/2020 13:54 EDT 04/19/2020 14:06 EDT us Zully Salmon MD HEMATOLOGY & PF4 ORDERABLE S Final Result [facility] [address] [place] [address] * (ABNORMAL) D-DIMER (04/19/2020 13:54 EDT) D-Dimer 693(H) <=230 ng/mL DDU 04/19/2020 14:32 EDT [facility] Blood VENOUS BLOOD / Unknown Venipuncture / Unknown 04/19/2020 13:54 EDT 04/19/2020 14:06 EDT Narrative [facility] - 04/19/2020 14:32 EDT Cutoff value for the exclusion of DVT and PE: 230 ng/mL D-dimer units. Any use of the age-adjusted cutoff value is a post-analytic modification of this FDA-approved test and is considered off-label use of the test result. [facility] laboratory does not have literature to support the validity of an age-adjusted cutoff for our specific assay. us Zully Salmon MD HEMATOLOGY & PF4 ORDERABLE S Final Result [facility] [address] [place] [address] * (ABNORMAL) COMPLETE BLOOD COUNT AND DIFFERENTIAL (04/19/2020 13:54 EDT) WBC 1.42(L) 4.00 - 12.40 K/cmm 04/19/2020 14:18 T [facility] RBC 3.63(L) 3.86 - 5.04 M/cmm 04/19/2020 14:18 [facility] Hemoglobin 11.3(L) 11.6 - 15.2 gm/dL 04/19/2020 14:18 [facility] HCT 32.6(L) 34.9 - 44.4 % 04/19/2020 14:18 [facility] MCV 90 81 - 98 fl 04/19/2020 14:18 [facility] MCH 31.1 26.7 - 33.3 pg 04/19/2020 14:18 [facility] MCHC 34.7 32.1 - 35.9 gm/dL 04/19/2020 14:18 [facility] RDW-CV 13.8 <14.7 % 04/19/2020 14:18 [facility] RDW-SD 45.1 <50.4 fl 04/19/2020 14:18 [facility] PLT 34(L) 141 - 377 K/cmm 04/19/2020 14:18 [facility] MPV 10.7 9.5 - 12.7 fl 04/19/2020 14:18 [facility] Type of Differential: Manual 04/19/2020 14:18 [facility] Blood VENOUS BLOOD / Unknown Venipuncture / Unknown 04/19/2020 13:54 EDT 04/19/2020 14:06 EDT us Zully Salmon MD PACKAGES & DNA PROBE ORDER YANN Final Result [facility] [address] [place] [address] * XR CHEST PORTABLE 1 VIEW (04/19/2020 11:46 EDT) Anatomical Region Laterality Modality Computed Radiogr aphy 04/19/2020 11:5 3 EDT Impressions 04/19/2020 11:53 EDT 1. ??No radiographic evidence of acute cardiopulmonary disease. Narrative 04/19/2020 11:53 EDT XR CHEST PORTABLE 1 VIEW ??04/19/2020 11:20 AM CLINICAL HISTORY/COMMENTS: shortness of breath COMPARISON: Chest radiograph October 03, 2019, chest CT November 26, 2019. FINDINGS: Single portable AP view of the chest. Lines/tubes: ??None Soft tissues, bones and extrathoracic findings: Degenerative changes seen in the bilateral acromioclavicular joints. No acute osseous abnormality. Cardiac and mediastinal contours: Normal. Lungs: The lungs are clear. Pulmonary vascularity is normal. Pleura: No visible pleural abnormalities. Procedure Note Terra Rene MD - 04/19/2020 XR CHEST PORTABLE 1 VIEW 04/19/2020 11:20 AM CLINICAL HISTORY/COMMENTS: shortness of breath COMPARISON: Chest radiograph October 03, 2019, chest CT November 26, 2019. FINDINGS: Single portable AP view of the chest. Lines/tubes: None Soft tissues, bones and extrathoracic findings: Degenerative changes seenin the bilateral acromioclavicular joints. No acute osseous abnormality. Cardiac and mediastinal contours: Normal. Lungs: The lungs are clear. Pulmonary vascularity is normal. Pleura: No visible pleural abnormalities. IMPRESSION 1. No radiographic evidence of acute cardiopulmonary disease. us Zully Salmon MD IMG DIAGNOSTIC IMAGING ORD ERABLES Final Result * EKG 12-LEAD (04/19/2020 11:25 EDT) 04/19/2020 11:2 5 EDT Narrative [facility] - 05/07/2020 9:30 EDT ?[facility] ? Test Date: ?2020-04-19 Pat Name: ? PHYLISS BOOTHE ?Department: ?? ED ? Room: ? Gender: ? Female ? Benefits Advisor: ?? [id number] : ?1960 ? Requested By: PARMJIT BAUER MD Order Number: [id number] ? Reading MD: ?? LAURENT MACK ? Measurements Intervals ?[place]ott ? Rate: ? 63 ? P: ?54 UT: ? 161 ?QRS: ?68 QRSD: ? 96 ? T: ?19 QT: ? 388 ? QTc: ?398 ? Interpretive Statements SINUS RHYTHM Compared to ECG 11/25/2019 23:24:45 No significant changes I reviewed the tracing and have either agreed or edited the findings in this report. Electronically Signed On 05-07-2020 9:30:15 EDT by LAURENT MACK . Procedure Note Laurent Mack MD - 05/07/2020 [facility] Emergency Test Date: 2020-04-19 Pat Name: TARA BOOTHE Department: ED Room: Gender: Female Benefits Advisor: [id number] : 1960 Requested By: PARMJIT BAUER MD Order Number: [id number] Reading MD: LAURENT MACK Measurements Intervals Weott Rate: 63 P: 54 UT: 161 QRS: 68 QRSD: 96 T: 19 QT: 388 QTc: 398 Interpretive Statements SINUS RHYTHM Compared to ECG 11/25/2019 23:24:45 No significant changes I reviewed the tracing and have either agreed or edited the findings inthis report. Electronically Signed On 05-07-2020 9:30:15 EDT by ERVIN . us Parmjit Bauer MD CARDIAC ECG ORDERABLES Final Result [facility] * COVID-19 TEST [facility] PCR (04/19/2020 11:25 EDT) Swab ENTIRE NASOPHARYNX / Unknown Swab / Unknown 04/19/2020 11:25 EDT 04/19/2020 11:32 EDT us Zully Salmon MD MICROBIOLOGY - GENERAL ORD ERABLES Final Result Performing Organization Address [facility] Co de Phone Number [facility] [address] [place] [address] * COVID-19 TESTING (04/19/2020 11:25 EDT) Pathologist [facility] COVID-19 rt-PCR Result Negative Negative 04/19/2020 14:49 EDT [facility] Comment: This test has [...] history, and epidemiological information. Performed on the [employer] instrument Performing Lab [place] [facility] 04/19/2020 14:49 EDT [facility] Swab ENTIRE NASOPHARYNX / Unknown Swab / Unknown 04/19/2020 11:25 EDT 04/19/2020 11:32 EDT Zully Salmon MD MICROBIOLOGY - GENERAL ORD ERABLES Final Result Performing Organization Address [facility]/ZIP Co de Phone Number [facility] [address] [place] [address] * TROPONIN I (04/19/2020 11:25 EDT) Pathologist [facility] Troponin I (ng/mL) <0.034 <0.034 ng/mL 04/19/2020 13:37 EDT [facility] Comment:Slight hemolysis rell ntified, interpret with caution as results may be affected due to hemolysis. Blood VENOUS BLOOD / Unknown Venipuncture / Unknown 04/19/2020 11:25 EDT 04/19/2020 12:44 EDT Narrative [facility] - 04/19/2020 13:37 EDT The results of this assay can be falsely lowered due to the consumption of Biotin. us Zully Salmon MD CHEMISTRY & BLOOD GAS ORDE THERESA Final Result Performing Organization Address [facility]/ZIP Co de Phone Number [facility] [address] [place] [address] * MAGNESIUM (04/19/2020 11:25 EDT) Magnesium 1.8 1.7 - 2.8 mg/dL 04/19/2020 13:09 EDT [facility] Comment:Slight hemolysis rell ntified, interpret with caution as results may be affected due to hemolysis. Blood VENOUS BLOOD / Unknown Venipuncture / Unknown 04/19/2020 11:25 EDT 04/19/2020 12:44 EDT us Zully Salmon MD CHEMISTRY & BLOOD GAS ORDE RABKIANNA Final Result Performing Organization Address [facility] Co de Phone Number [facility] [address] [place] [id number] * NT PRO BNP (04/19/2020 11:25 EDT) NT-pro BNP 43 <125 pg/mL 04/19/2020 13:36 EDT [facility] Comment: The results of this assay can be falsely lowered due to consumption of Biotin. Blood VENOUS BLOOD / Unknown Venipuncture / Unknown 04/19/2020 11:25 EDT 04/19/2020 12:44 EDT us Zully Salmon MD CHEMISTRY & BLOOD GAS ORDE RABKIANNA Final Result Performing Organization Address City/[facility]/ZIP Co de Phone Number [facility] [address] [place] [address] * (ABNORMAL) COMPREHENSIVE METABOLIC PANEL (CMP) (04/19/2020 11:25 EDT) Sodium 133(L) 136 - 145 mEq/L 04/19/2020 13:09 [facility] Potassium 4.9 3.5 - 5.0 mEq/L 04/19/2020 13:09 [facility] Comment:Slight hemolysis rell ntified, interpret with caution as hemolysis will elevate potassium result. Chloride 103 96 - 110 mEq/L 04/19/2020 13:09 [facility] CO2 Total 27 22 - 32 mEq/L 04/19/2020 13:09 [facility] Glucose 100 70 - 100 mg/dL 04/19/2020 13:09 [facility] BUN 15 10 - 26 mg/dL 04/19/2020 13:09 [facility] Comment: Slight hemolysis identified, interpret with caution as results may be affected due to hemolysis. Creatinine 0.89 0.52 - 1.04 mg/dL 04/19/2020 13:09 [facility] eGFR 71 >60 mL/min/1.7 3m2 04/19/2020 13:09 [facility] Comment:eGFR calculated usclemente coppola CKD-EPI equation for non- Americans. Multiply eGFR by 1.16 for patients. Total Protein 6.9 6.3 - 8.2 g/dL 04/19/2020 13:09 [facility] Comment:Slight hemolysis rell ntified, interpret with caution as results may be affected due to hemolysis. Albumin 3.8 3.4 - 4.9 g/dL 04/19/2020 13:09 [facility] Comment:Slight hemolysis rell ntified, interpret with caution as results may be affected due to hemolysis. Alkaline Phosphatase 61 38 - 126 U/L 04/19/2020 13:09 [facility] Comment:Slight hemolysis rell ntified, hemolysis will decrease ALKP result. Interpret with caution as results may be affected due to hemolysis. AST 31 15 - 46 U/L 04/19/2020 13:09 [facility] Comment:Slight hemolysis rell ntified, interpret with caution as results may be affected due to hemolysis. ALT 16 <35 U/L 04/19/2020 13:09 EDT [facility] Bilirubin, Total 1.0 <1.4 mg/dL 04/19/20 20 13:09 EDT [facility] Calcium 9.1 8.5 - 10.5 mg/dL 04/19/2020 13:09 EDT [facility] Calculated Calcium 9.3 8.5 - 10.5 mg/dL 04/19/2020 13:09 EDT [facility] Comment:Slight hemolysis rell ntified, interpret with caution as results may be affected due to hemolysis. Blood VENOUS BLOOD / Unknown Venipuncture / Unknown 04/19/2020 11:25 EDT 04/19/2020 12:44 EDT us Zully Salmon MD CHEMISTRY & BLOOD GAS DEMI CARDENAS Final Result [facility] [address] [place] [address] documented in this encounter Visit Diagnoses Diagnosis Shortness of breath- Primary Peripheral edema Edema documented in this encounter Administered Medications Inactive Administered Medications - up to 3 most recent administrations Medication Order MAR Action Action Date Dose Rate Site iohexoL (OMNIPAQUE 350) solution 100 mL 100 mL, intravenous, Once in imaging, 1 dose, Starting on 04/19/20 at 1608, Until 04/19/20 at 1621, Routine, Imaging Protocol Orders Given 04/19/2020 16:21 EDT 75 mL documented in this encounter Active and Recently Administered Medications Times are shown in EDT. Scheduled Medication Order 04/17/2020 04/18/2020 04/19/2020 iohexoL (OMNIPAQUE 350) solution 100 mL (COMPLETED) 100 mL, intravenous, Once in imaging, 1 dose, Starting on 04/19/20 at 1608, Until 04/19/20 at 1621, Routine, Imaging Protocol Orders 1621 (Given - Provid er: Teresa Michelle) documented in this encounter Orders Medications Ordered That Luc ht Not Have Been Administered Count Last Ordered Date First Ordered Date iohexoL (OMNIPAQUE 350) solution 100 mL 1 0 04/19/2020 documented in this encounter Additional Health Concerns Infection Onset Date Last Indicated Resolved Time R/O COVID-19 Comment:Per MD Salmon 04/19/2020 04/19/2020 04/19/2020 14:46 E DT documented as of this encounter Care Teams Phone Triage Specialist Relationship Specialty Start Date End Date Alma Farfan MD PCP - General 03/14/19 05/21/20 documented as of this encounter
--- OUTSIDE RECORDS SUMMARY | 2024-11-22 17:23 | XMS_ITS | Encounter Summary ---
Author Organization [facility] Address [address] [place] [address] Care Team Providers Care [employer] Senior Officer Name Role Phone Alma Farfan MD Primary Care Provider [phone] Encounter Details Date Type Department Care Team (Latest Contact Info) Description 04/26/2020 Travel Social History Tobacco Use Types Packs/Day [...] EST Office Visit [facility] - [address] [address] Gagandeep Rome MD [address] [place] [address] [address] [place] [phone] 02/11/2025 13:30 EDT Telemedicine [facility] Hematology & Oncology [address] [phone] Dana Padilla MD [address] [place] [address], [address] [place] [phone] documented as of this encounter Visit Diagnoses Not on filedocumented in this encounter Care Teams [employer] Senior [employer] Relationship Specialty Start Date End Date Alma Farfan MD PCP - General 03/14/19 05/21/20 documented as of this encounter
--- OUTSIDE RECORDS SUMMARY | 2024-11-22 17:23 | XMS_ITS | Encounter Summary ---
Author Organization [facility] Address [address] [place] [address] Care Team Providers Care Staff Submarine Warfare Officer Name Role Phone Alma Farfan MD Primary Care Provider [phone] Reason for Visit * Reason Onset Date Comments Advice Only 02/19/2020 Encounter Details Date Type Department Care Team (Late st Contact Info) Description 02/19/2020 Telephone [facility] Urology - [facility] [address] [place] [address] Juliet Rivera RN Advice Only Social History Tobacco Use Types Packs/Day [...] Date of Assessment Author No 11/27/2019 6:36 EST Dana Lewis RN * Are you blind or do [...] Dana Alfaro RN documented in this encounter Ordered Prescriptions Prescription Sig Dispense Quantity Refills Last Filled Start Date End Date tamsulosin (FLOMAX) 0.4 mg capsule Take 1 Cap by mouth daily. 30 Cap 11 02/19/2020 12/04/2020 documented in this encounter Miscellaneous Notes * Telephone Encounter - Juliet Rivera RN - 02/19/2020 1433 EDT Tc to pt to advise per , As I explained to her in clinic it appears to be cystitis/irritation of her bladder. It is also possible it is coming from the vagina and not the urine. I would recommend she be seen by a environmental marketer to evaluate for bleeding as well. Also would like her to trial flomax to see if it helps her empty her bladder. Can you please prescribe 0.4mg flomax qhs 30 tabs 11 refills? Thank you! Pan. Pt verbalized understanding and aware to call office if intolerable side effects from Flomax. * Telephone Encounter - Juliet Rivera RN - 02/19/2020 1010 EDT Tc to pt to advise the following. Pt wants to understand why she is seeing blood in her urine.-----Message from Lon Ortez MD sent at 02/18/2020 13:03 EDT ----- Can someone please reach out to arianeiss sometime today and let her know her CT scan is normal and does not show a reason for her pain. I wasn't able to get through to her. I would like her to call her PCP to get follow up for her back pain. Ralph, Pan ----- Message ----- From: Zane Lewis Results In Sent: 02/18/2020 12:53 EDT To: Lon Ortez MD documented in this encounter Plan of Treatment Upcoming Encounters Date Type Department Care Team (Late st Contact Info) Description 01/04/2025 13:00 EST Office Visit [facility] Ophthalmology - [address] [phone] Gagandeep Rome MD [address] [place] [address], [facility] [address] [place] [phone] 02/11/2025 13:30 EDT Telemedicine [facility] Hematology & Oncology - [address] [phone] Dana Padilla MD [address] [place] [address], [address] [place] [phone] documented as of this encounter Visit Diagnoses Not on filedocumented in this encounter Discontinued Medications Medication Sig Discontinue Reason Start Date End Da te acetaminophen (TYLENOL) 325 mg tablet Take 2 Tabs by mouth every 6 hours as needed for Pain. Therapy completed 11/27/2019 02/19/2020 documented as of this encounter Historical Medications * This list may reflect changes made after this encounter. spironolactone (ALDACTONE) 25 mg tablet Take 50 mg by mouth daily. 06/23/2020 added in this encounter Care Teams Staff Submarine Warfare Officer Relationship Specialty Start Date End Date Alma Farfan MD PCP - General 03/14/19 05/21/20 documented as of this encounter
--- OUTSIDE RECORDS SUMMARY | 2024-11-22 17:23 | XMS_ITS | Encounter Summary ---
Author Organization [facility] Address [address] [place] [address] Care Team Providers Care Stripping Shovel Operator Name Role Phone Alma Farfan MD Primary Care Provider [phone] [phone] Emigdio Veronica MD Primary Care Provider + Reason for Visit * Reason Comments Telemedicine Phone Call Encounter Details Date Type Department Care Team (Late st Contact Info) Description 03/06/2020 15:00 EDT Telemedicine [facility] Center Hematology & Oncology - [address] [phone] Starr Paige MD [address] [place] [address] Pancytopenia (HCC-CMS) (Primary Dx) Social [...] Progress Notes * Starr Paige MD - 03/06/2020 1500 EDT Hematology follow up note. 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 CURRENT THERAPY: none PRIOR THERAPY: none CC: follow up HISTORY OF PRESENT ILLNESS: 59 y.o. years old white female with past medical history of asthma, hyperlipidemia, GERD, history of nonalcoholic fatty liver disease, history of hepatitis C as well as known decompensated liver cirrhosis with portal hypertension, severe hepatosplenomegaly as well as history of hepatic encephalopathy is being transferring care from [facility] to [facility] because of relocation. Patient is following Dr. Ijeoma Smith, GI Department in [facility] for long-standing decompensated liver cirrhosis, portal hypertension and hepatic encephalopathy. She was also formerly seen by hematology oncology clinic in [facility], underwent bone marrow biopsy for pancytopenia in [...] by Dr. Dickens although then relocated to [place]. Her most recent CBC showed WBC 1.99 with ANC 1.3, resolution of anemia, stable thrombocytopenia at 54K. his CMP profile is otherwise unremarkable with normal liver function tests. Her most recent ultrasound of the abdomen show enlarged spleen measuring 21 x 12.6 x 17.3 cm. NormalDoppler floor within the splenic artery and vein. Interval history: Visit is performed by telehealth due to COVID19 pandemic. Her main severe constipation for 9 days despite taking lactulose, lack of appetite, nausea. Since last time in the clinic she passes kidney stone. She also was admitted with partial SBO that resolved with conservative measures NPO, fluids and pain management. She was DC on 11-27-2019. She is no longer seeing Dr. Smith in hepatology in [facility]. TIPS and liver transplant listing are on [...] Per Dr Amelia Tijerina and notes from [facility] patient misconstrued information to several [...] file Gets together: Not on file Attends mormonism service: Not on file Active member of [...] Disorder Father ??? Diabetes Brother PHYSICAL EXAMINATION: Visit is conducted by telehealth. LABS REVIEWED: Results for RISSA YUN ( ) as of 03/06/2020 14:49 Ref. Range 03/06/2020 08:17 WBC Latest Ref Range: 4.00 - 12.40 K/cmm 1.13 (L) RBC Latest Ref Range: 3.86 - 5.04 M/cmm 3.82 (L) Hemoglobin Latest Ref Range: 11.6 - 15.2 gm/dL 11.6 HCT Latest Ref Range: 34.9 - 44.4 % 34.7 (L) MCV Latest Ref Range: 81 - 98 fl 91 MCH Latest Ref Range: 26.7 - 33.3 pg 30.4 MCHC Latest Ref Range: 32.1 - 35.9 gm/dL 33.4 RDW-CV Latest Ref Range: <14.7 % 14.0 RDW-SD Latest Ref Range: <50.4 fl 46.7 PLT Latest Ref Range: 141 - 377 K/cmm 42 (L) MPV Latest Ref Range: 9.5 - 12.7 fl 10.4 Neutrophils Latest Units: % 71.1 Lymphocytes Latest Units: % 21.9 Atyp Lymphs Latest Units: % 0.9 Monocytes Latest Units: % 6.1 ABS Neutrophils Latest Ref Range: 2.20 - 8.85 K/cmm 0.80 (L) ABS Lymphs Latest Ref Range: 1.09 - 3.30 K/cmm 0.25 (L) ABS Atyp Lymphs Latest Units: K/cmm 0.01 ABS Monocytes Latest Ref Range: 0.10 - 0.80 K/cmm 0.07 (L) Type of Diff: Unknown Manual Results for RISSA YUN ( ) as of 03/06/2020 14:49 Ref. Range 03/06/2020 08:17 Sodium Latest Ref Range: 136 - 145 mEq/L 137 Potassium Latest Ref Range: 3.5 - 5.0 mEq/L 3.8 CO2 Latest Ref Range: 22 - 32 mEq/L 28 Chloride Latest Ref Range: 96 - 110 mEq/L 105 BUN Latest Ref Range: 10 - 26 mg/dL 12 Creatinine Latest Ref Range: 0.52 - 1.04 mg/dL 0.81 ALT Latest Ref Range: <35 U/L 11 Glucose, Serum Latest Ref Range: 70 - 100 mg/dL 75 Calcium Latest Ref Range: 8.5 - 10.5 mg/dL 8.5 Calculated Calcium Latest Ref Range: 8.5 - 10.5 mg/dL 8.9 Magnesium Latest Ref Range: 1.7 - 2.8 mg/dL 1.7 Total Protein Latest Ref Range: 6.3 - 8.2 g/dL 6.1 (L) Albumin Latest Ref Range: 3.4 - 4.9 g/dL 3.5 Total Alkaline Phosphatase Latest Ref Range: 38 - 126 U/L 64 AST Latest Ref Range: 15 - 46 U/L 18 Bilirubin, Total Latest Ref Range: <1.4 mg/dL 0.6 GFR, Calculated Latest Ref Range: >60 mL/min/1.73m2 80 IMAGING REVIEWED: June 01, 2017: Findings: ? The left kidney is normal in size (12.8 cm). No hydronephrosis, ?? mass, or shadowing calculus is identified. ? Color Doppler flow is present in the left kidney. ? The bladder is normal. ? Spleen is enlarged, measuring 21 x 12.6 x 17.3 cm (2242 ?? milliliters). Normal Doppler flow is present within the splenic ?? artery and vein. ? Impression: ?? 1. Normal ultrasound of the left kidney and bladder. ?? 2. Splenomegaly IMAGES: 03-14-19 Impression: 1. ??Region of palpable concern corresponds with the most superior aspect of the abdominal wall hernia repair mesh. 2. ??Cirrhotic liver 3. ??Distended portal vein, without evidence of thrombosis. 4. ??Post cholecystectomy. I have personally reviewed the images and the above interpretation and agree with the findings. PATHOLOGY: [facility] on May 01, 2019 she underwent a bone marrow biopsy that showed mature trilineage hematopoiesis with no evidence of bone marrow disease. Bone marrow biopsy 04/09/2013: (Performed at [facility]) ---Diagnosis--- ? 1. Progressive pancytopenia, chronic Hep C infection, by history ? 2. Leukolymphopenia and thrombopenia, peripheral blood ? 3. Normocellular marrow with trilineage maturation, no clear evidence of ? dysplasia or infiltrative disease-see comment ---Addendum Discussion--- ? Immunostains for kappa and lambda light chains were performed after ? detection of a low level paraprotein. These stains revealed only scattered ? singly distributed plasma cells, with both kappa and lambda positive plasma ? cells present. There is no evidence of a clonal population. ASSESSMENT AND PLAN: 59 y.o. years old white female with past medical history mentioned above is back for a follow up ofpancytopenia; - Her pancytopenia is likely associated with underlying decompensated liver cirrhosis as well as severe hepatosplenomegaly and hypersplenism. - Patient was formerly evaluated at [facility] with subsequent bone marrow biopsy that showed [...] placebo-controlled trials (L-PLUS 1 and L-PLUS 2, [id number]) involving 312 patients with chronic liver disease and severe thrombocytopenia who were undergoing an invasive procedure and had a platelet count less than 50 x 109/L. Partial SBO: - patient now experiencing severe constipation with overflow incontinence, she is nauseous with no appetite for 9 days - she reports tender and painful spot in the stomach and is rfeeling restless at times - I offered her to have an evaluation at ED for an evaluation for SBO, although patient prefers to reah PCP office first. I paged Dr. Farfan myself to discuss ongoing issue too. I encouraged the patient to call the clinic as well if symtptoms worsen and reach out /PCP office today. Plan: - Return in 6 months, labs every 3 months. Starr Paige Hematology and Oncology I am conducting today's visit by telephone due to the COVID-19 pandemic, and by the [facility] the [facility] to minimize patient exposure to our medical center. All patients who have routine follow up visits are offered telemedicine or phone consultation. This consultation has been reviewed by appropriate clinical staff and has been deemed appropriate for a phone consultation. The pt consents to a phone visit, is at home/work, and I, their MD, am in my private office alone. Addendum: 06/11/2020 Results reviewed and stable. Continue with current plan as outlined above. documented in this encounter Plan of Treatment Upcoming Encounters Date Type Department Care Team (Late st Contact Info) Description 01/04/2025 13:00 EST Office Visit [facility] [place] [address] Gagandeep Rome MD [address] [place] [address], [address] [place] [phone] 02/11/2025 13:30 EDT Telemedicine [facility] Cancer Center Hematology & Oncology - [address] [phone] Dana Padilla MD [address] [facility], [address] [place] [address] documented as of this encounter Visit Diagnoses Diagnosis Pancytopenia (HCC-CMS)- Primary Other pancytopenia documented in this encounter Additional Health Concerns Infection Onset Date Last Indicated Resolved Time R/O COVID-19 Comment:Per MD Salmon 04/19/2020 04/19/2020 04/19/2020 14:46 E DT documented as of this encounter Care Teams Stripping Shovel Operator Relationship Specialty Start Date End Date Alma Farfan MD PCP - General 03/14/19 05/21/20 Emigdio Veronica MD [address] [place] [phone] PCP - General Internal Medicine - Primary Care 05/22/20 02/21/24 documented as of this encounter
--- OUTSIDE RECORDS SUMMARY | 2024-11-22 17:23 | XMS_ITS | Encounter Summary ---
Author Organization [facility] Address [address] [place] [address] Care Team Providers Care Roofer Assistant Name Role Phone Alma Farfan MD Primary Care Provider [phone] [phone] Reason for Visit * Reason Comments Follow-up hematuria * Referral (Routine) - Closed Specialty Diagnoses / Procedures Referred By [facility] Referred To Contact Urology Diagnoses Hematuria, unspecified Alma Farfan MD [address] [place] [address] Phone: tel: fax: Lon Ortez MD Phone: tel: fax: Referral ID Status Reason Start Date Expiration Date Visits Re quested Visits Authorized [id number] Closed 1 1 Encounter Details Date Type Department Care Team (Late st Contact Info) Description 01/23/2020 15:30 EST Office Visit [facility] Urology - [address] [phone] Lon Ortez MD 111 [facility], [address] [place] [address] Hematuria, gross (Primary Dx) Social History Tobacco Use Types [...] on file documented as of this encounter Functional [...] documented in this encounter Progress Notes * Marjorie Quiles MA - 01/23/2020 153 EST dip * Lon Ortez MD - 01/23/20200 EST Chief Complaint: Chief Complaint Patient presents with ??? Follow-up hematuria HPI: Tara is a 59 y.o. female with left flank pain and gross hematuria. I previously saw the patient for this issue and had attempted to schedule a cystoscopy but patient canceled. This was back in 2017. Her issue continues with gross hematuria as well as left flank pain. She did have a CT with delays that I reviewed showing no hydro-. There is potentially a small bladder mass adjacent to the left ureteral orifice but difficult to tell on CT. Unfortunately the CT does not have a noncontrast phase and unable to assess for stones. Since I last saw her in 2017 she has continued to have intermittent left flank pain and more recently this is gotten worse along with her gross hematuria. No fevers or chills. Medications Current Outpatient Medications: ??? acetaminophen (TYLENOL) 325 mg tablet, Take 2 Tabs by mouth every 6 hours as needed for Pain. (Patient not taking: Reported on 01/23/2020), Disp: 100 Tab, Rfl: 0 ??? albuterol 90 mcg/actuation inhaler, Inhale 2 Puffs as directed every 4 hours., Disp: , Rfl: ??? ERGOCALCIFEROL, VITAMIN D2, (VITAMIN D ORAL), Take by mouth., Disp: , Rfl: ??? ferrous gluconate (FERGON) 324 mg (38 mg iron) tablet, Take 324 mg by mouth 3 times daily with meals. , Disp: , Rfl: ??? LEVOTHYROXINE SODIUM (LEVOTHYROXINE ORAL), Take 25 mcg by mouth daily. Unknown dose , Disp: , Rfl: ??? ondansetron (ZOFRAN) 4 mg tablet, Take 4 mg by mouth 2 times daily as needed., Disp: , Rfl: ??? SYMBICORT 160-4.5 mcg/actuation HFA aerosol inhaler inhaler, Inhale 2 Puffs as directed daily.,Disp: , Rfl: ??? traZODone (DESYREL) 100 mg tablet, Take 150 mg by mouth at bedtime as needed. , Disp: , Rfl: No current facility-administered medications for this visit. [...] no vitals taken for this visit. Exam: Constitutional: Alert, in no distress. Pulm: Normal effort, unlabored Genital: No Carl Musculoskeletal: Extremities warm without edema. Skin: Skin warm and dry. Psych: Mood and affect appropriate Data Review: I have independently visualized the and image(s) Labs: CBC: Lab Results Component Value Date WBC 1.42 (L) 11/27/2019 RBC 3.92 11/27/2019 HGB 11.9 11/27/2019 HCT 36.2 11/27/2019 MCV 92 11/27/2019 MCH 30.4 11/27/2019 MCHC 32.9 11/27/2019 PLT 33 (L) 11/27/2019 NEUTROABS 1.11 (L) 11/27/2019 SEDRATE 4 07/13/2019 BMP: Lab Results Component Value Date NA 137 11/27/2019 K 4.5 11/27/2019 CL 103 11/27/2019 CO2 27 11/27/2019 BUN 11 11/25/2019 CREATININE 0.72 11/27/2019 GLUCOSEFINGE 83 06/20/2017 CALCIUM 9.1 11/25/2019 MG 1.9 11/25/2019 LABALBU 4.1 11/25/2019 Impression: Patient with gross hematuria and a prior work-up that included a CT urogram, cytology that was negative by patient canceled cystoscopy. She is in today with continued left flank pain and gross hematuria that has worsened recently. She did have a CT with delays in November of this year which showed no hydro-or any other upper tract lesions. She does have a suspicious area in the bladderand I would like to obtain a urine cytology and proceed with cystoscopy. I offered to do the cystoscopy today but the patient declined. Plan: Urine cytology Urine culture Follow-up for office cystoscopy Lon Ortez MD This note has been prepared with voice recognition software. Please excuse whiskey proof reader errors. documented in this encounter Plan of Treatment Upcoming Encounters Date Type Department Care Team (Late st Contact Info) Description 01/04/2025 13:00 EST Office Visit [facility] Ophthalmology - [address] [phone] Gagandeep Rome MD 111 [facility], [address] [place] [phone] 02/11/2025 13:[address] [facility] [place] Hematology & Oncology - [address] [phone] Dana Padilla MD 111 [facility], [facility] [address] [place] [address] documented as of this encounter Procedures Procedure Name Priority Date/Time Associated Diagnosis Comments NON AT RISK SPECIALIST/FNA CYTOLOGY Routine 01/23/2020 15:54 EST Hematuria, gross BACTERIAL CULTURE, URINE Routine 01/23/2020 15:54 EST Hematuria, gross POCT URINE CLINITEK (DIPSTICK) - DOES NOT REFLEX Routine 01/23/2020 15:47 EST Hematuria, gross POCT URINE DIPSTICK, CLINITEK Routine 01/23/2020 15:47 EST Hematuria, gross documented in this encounter Results * BACTERIAL CULTURE, URINE (01/23/2020 15:54 EST) Organism ID Less than 10,000 CFU/ml Usual urogenital tiffanie. 01/24/2020 13:24 EST [facility] Urine URINE SPECIMEN OBTAINED BY CLEAN CATCH PROCEDURE / Unknown Urine Collect / Unknown 01/23/2020 15:54 EST 01/23/2020 16:06 EST us Lon Ortez MD MICROBIOLOGY - GENERAL ORDERA BLES Final Result [facility] [address] [place] [address] * NON AT RISK SPECIALIST/FNA CYTOLOGY (01/23/2020 15:54 EST) Final Diagnosis A. URINE, VOIDED, CYTOLOGIC EVALUATION: - Negative for high grade urothelial cell carcinoma. - Rare atypical squamous cells present. See comment. 01/24/2020 17:02 [facility] at 1701 Diagnosis Comment The specimen consists predominantly of squamous epithelial cells, consistent with vulvovaginal contaminant. There are rare atypical squamous cells with enlarged nuclei and irregular nuclear membranes. Follow-up with a gynecologic pap smear may be indicated for further evaluation. Clinical correlation is advised. Jennifer Good DO 01/24/20 13:49 01/24/2020 17:02 [facility] Clinical History gross hematuria 01/24/2020 17:02 [facility] Attestation There was significant resident/fellow involvement in the diagnostic evaluation of this case. By the signature below, the attending physician certifies that they have personally conducted a gross and/or microscopic examination of the described specimens and rendered or confirmed the above diagnosis. 01/24/2020 17:02 [facility] at 1701 Gross Description 60cc's of cloudy dark yellow fluid were received and processed by selective cellular enhancement technique. 01/24/2020 17:02 [facility] Resident/Dilip w: Jennifer Good DO 01/24/2020 17:02 [facility] Scanned Images 01/24/2020 17:02 [facility] Urine VOIDED URINE SPECIMEN / Unknown Urine Collect / Unknown 01/23/2020 15:54 EST 01/24/2020 6:19 EST us Lon Ortez MD PATHOLOGY ORDERABLES Final Re sult [facility] [address] [place] [address] * (ABNORMAL) POCT URINE DIPSTICK, CLINITEK (01/23/2020 15:47 EST) Color, UA Yellow Yellow 01/23/2020 15:52 [facility] Clarity, UA Clear Clear 01/23/2020 15:52 [facility] Glucose, UA Negative Negative mg/dL 01/23/2020 15:52 [facility] Bilirubin, UA Negative Negative 01/23/2020 15:52 [facility] Ketones, UA Negative Negative mg/dL 01/23/2020 15:52 [facility] Specific [place], Urine 1.020 1.001 - 1.035 01/23/2020 15:52 [facility] Blood, UA 3+(A) Negative 01/23/2020 15:52 [facility] pH, UA 7.0 <=8 01/23/2020 15:52 [facility] Protein, UA Negative Negative mg/dL 01/23/2020 15:52 [facility] Urobilinogen, UA 2.0(A) 0.2 - 1.0 EU/dL 01/23/2020 15:52 [facility] Nitrite, UA Negative Negative 01/23/2020 15:52 [facility] Leuk Esterase Negative Negative 01/23/2020 15:52 [facility] head golf professional ID [id number] 01/23/2020 15:52 [facility] HN LAB COMMENT (CLINITEK, UR) Test performed at [facility] 01/23/2020 15:52 [facility] Urine URINE SPECIMEN OBTAINED BY CLEAN CATCH PROCEDURE / Unknown 01/23/2020 15:47 EST 01/23/2020 15:52 EST us Lon Ortez MD POINT OF CARE TEST ORDERABLES Final Result [facility] [address] [place] [address] documented in this encounter Visit Diagnoses Diagnosis Hematuria, gross- Primary Gross hematuria documented in this encounter Care Teams Roofer Assistant Relationship Specialty Start Date End Date Alma Farfan MD PCP - General 03/14/19 05/21/20 documented as of this encounter
--- OUTSIDE RECORDS SUMMARY | 2024-11-22 17:23 | XMS_ITS | Encounter Summary ---
Author Organization [facility] Address [address] [place] [address] Care Team Providers Care Wharfinger Chief Name Role Phone Alma Farfan MD Primary Care Provider [phone] Encounter Details Date Type Department Care Team (Latest Contact Info) Description 03/05/2020 Transcribe Orders [facility] Hematology & Oncology - [facility] [address] [place] [address] Starr Paige MD [address] [place] [phone] Pancytopenia (HCC-CMS) (Primary Dx) Social History [...] Visit [facility] Ophthalmology - [address] [phone] Gagandeep Rome MD [address] [place] [address] 5 [place] [phone] 02/11/2025 13:30 EDT Telemedicine [facility] Hematology & Oncology [address] [address] Dana Padilla MD [address] [place] [address] 2 [place] [phone] documented as of this encounter Results * (ABNORMAL) COMPLETE BLOOD COUNT AND DIFFERENTIAL (03/06/2020 8:17 EDT) WBC 1.13(L) 4.00 - 12.40 K/cmm 03/06/2020 8:40 EDT [facility] RBC 3.82(L) 3.86 - 5.04 M/cmm 03/06/2020 8:40 EDT [facility] Hemoglobin 11.6 11.6 - 15.2 gm/dL 03/06/2020 8:40 T [facility] HCT 34.7(L) 34.9 - 44.4 % 03/06/2020 8:40 [facility] MCV 91 81 - 98 fl 03/06/2020 8:40 [facility] MCH 30.4 26.7 - 33.3 pg 03/06/2020 8:40 [facility] MCHC 33.4 32.1 - 35.9 gm/dL 03/06/2020 8:40 [facility] RDW-CV 14.0 <14.7 % 03/06/2020 8:40 [facility] RDW-SD 46.7 <50.4 fl 03/06/2020 8:40 [facility] PLT 42(L) 141 - 377 K/cmm 03/06/2020 8:40 [facility] MPV 10.4 9.5 - 12.7 fl 03/06/2020 8:40 [facility] Type of Differential: Manual 03/06/2020 8:40 [facility] Blood VENOUS BLOOD / Unknown Venipuncture / Unknown 03/06/2020 8:17 EDT 03/06/2020 8:24 EDT us Starr Paige MD PACKAGES & DNA PROBE ORDERA BLES Final Result [facility] [address] [place] [address] * (ABNORMAL) COMPREHENSIVE METABOLIC PANEL (ONCOLOGY USE ONLY-INC MG) (03/06/2020 8:17 EDT) Sodium 137 136 - 145 mEq/L 03/06/2020 8:50 [facility] Potassium 3.8 3.5 - 5.0 mEq/L 03/06/2020 8:50 [facility] Chloride 105 96 - 110 mEq/L 03/06/2020 8:50 [facility] CO2 Total 28 22 - 32 mEq/L 03/06/2020 8:50 [facility] Glucose 75 70 - 100 mg/dL 03/06/2020 8:50 [facility] BUN 12 10 - 26 mg/dL 03/06/2020 8:50 [facility] Creatinine 0.81 0.52 - 1.04 mg/dL 03/06/2020 8:50 [facility] eGFR 80 >60 mL/min/1.7 3m2 03/06/2020 8:50 [facility] Comment:eGFR calculated lobito coppola CKD-EPI equation for non- Americans. Multiply eGFR by 1.16 for patients. Total Protein 6.1(L) 6.3 - 8.2 g/dL 03/06/2020 8:50 [facility] Albumin 3.5 3.4 - 4.9 g/dL 03/06/2020 8:50 [facility] Alkaline Phosphatase 64 38 - 126 U/L 03/06/2020 8:50 [facility] AST 18 15 - 46 U/L 03/06/2020 8:50 [facility] ALT 11 <35 U/L 03/06/2020 8:50 [facility] Bilirubin, Total 0.6 <1.4 mg/dL 03/06/20 20 8:50 [facility] Calcium 8.5 8.5 - 10.5 mg/dL 03/06/2020 8:50 [facility] Calculated Calcium 8.9 8.5 - 10.5 mg/dL 03/06/2020 8:50 [facility] Magnesium 1.7 1.7 - 2.8 mg/dL 03/06/2020 8:50 EDT [facility] Blood VENOUS BLOOD / Unknown Venipuncture / Unknown 03/06/2020 8:17 EDT 03/06/2020 8:24 EDT us Starr Paige MD CHEMISTRY & BLOOD GAS ORDER YANN Final Result Performing Organization Address City/[facility]/ZIP Co de Phone Number [facility] [address] [place] [address] * FERRITIN (03/06/2020 8:17 EDT) Ferritin 135 10 - 291 ng/mL 03/06/2020 14:51 EDT [facility] Blood VENOUS BLOOD / Unknown Venipuncture / Unknown 03/06/2020 8:17 EDT 03/06/2020 8:24 EDT us Starr Paige MD CHEMISTRY & BLOOD GAS ORDER YANN Final Result Performing Organization Address City/[facility] Co de Phone Number [facility] [address] [place] [address] documented in this encounter Visit Diagnoses Diagnosis Pancytopenia (HCC-CMS)- Primary Other pancytopenia documented in this encounter Care Teams Wharfinger Chief Relationship Specialty Start Date End Date Alma Farfan MD PCP - General 03/14/19 05/21/20 documented as of this encounter
--- OUTSIDE RECORDS SUMMARY | 2024-11-22 17:23 | XMS_ITS | Encounter Summary ---
Author Organization [facility] Address [address] [place] [address] Care Team Providers Care Hat Lacer Name Role Phone Alma Farfan MD Primary Care Provider [phone] Encounter Details Date Type Department Care Team (Latest Contact Info) Description 03/25/2020 13:23 EDT - 03/25/2020 23:59 EDT Hospital Encounter [facility] [address] [place] [address] Discharge Disposition: Home or Self Care Social [...] Dana Alfaro RN documented in this encounter Medications at [...] Visit [facility] Ophthalmology - [address] [phone] Gagandeep Rome MD [address] [place] [address], [facility] [address] [place] [phone] 02/11/2025 13:30 EDT Telemedicine [facility] Hematology & Oncology [address] [phone] Dana Padilla MD [address] [place] [address], [facility] [address] [place] [phone] documented as of this encounter Procedures Procedure Name Priority Date/Time Associated Diagnosis Comments XR ABDOMEN 1 VIEW Routine 03/25/2020 14: 01 EDT Lower abdominal pain, unspecified Constipation, unspecified documented in this encounter Results * XR ABDOMEN 1 VIEW (03/25/2020 14:01 EDT) Anatomical Region Laterality Modality Body Computed Radiogr aphy 03/25/2020 14:1 5 EDT Narrative 03/25/2020 14:15 EDT XR ABDOMEN 1 VIEW ??03/25/2020 2:00 PM SIGNS AND SYMPTOMS/COMMENTS: ??abdominal pain COMPARISON: ??Renal colic CT 02/18/2020 TECHNIQUE: AP upright and supine views of the abdomen. FINDINGS: The bowel gas pattern is nonobstructive. There is no free air. Surgical clips are present in the right upper quadrant. Vascular and subcutaneous calcifications seen on the prior CT project in the right hemipelvis. Degenerative changes are present in the lower lumbar spine. I have personally reviewed the images and the above interpretation and agree with the findings. Procedure Note Jayden Whitlock MD - 03/25/2020 XR ABDOMEN 1 VIEW 03/25/2020 2:00 PM SIGNS AND SYMPTOMS/COMMENTS: abdominal pain COMPARISON: Renal colic CT 02/18/2020 TECHNIQUE: AP upright and supine views of the abdomen. FINDINGS: The bowel gas pattern is nonobstructive. There is no free air. Surgicalclips are present in the right upper quadrant. Vascular and subcutaneouscalcifications seen on the prior CT project in the right hemipelvis.Degenerative changes are present in the lower lumbar spine. I have personally reviewed the images and the above interpretation andagree with the findings. Alma Farfan MD IMG DIAGNOSTIC IMAGING OR DERABLES Final Result documented in this encounter Visit Diagnoses Not on filedocumented in this encounter Care Teams Hat Lacer Relationship Specialty Start Date End Date Alma Farfan MD PCP - General 03/14/19 05/21/20 documented as of this encounter
--- OUTSIDE RECORDS SUMMARY | 2024-11-22 17:23 | XMS_ITS | Encounter Summary ---
Author Organization [facility] Address [address] [place] [address] Care Team Providers Care Special Education Coordinator Name Role Phone Alma Farfan MD Primary Care Provider [phone] Reason for Referral * Radiology Services (Urgent) - Closed Specialty Diagnoses / Procedures Referred By Serene huitron Referred To Contact Diagnoses Flank pain Procedures CT RENAL STONE Lon Ortez MD Phone: tel: fax: Referral ID Status Reason Start Date Expiration Date Visits Re quested Visits Authorized [id number] Closed 02/18/2020 1 1 Reason for Visit * Radiology Services (Urgent) - Closed Specialty Diagnoses / Procedures [facility] Referred To Contact Diagnoses Flank pain Procedures CT RENAL STONE Lon Ortez MD Phone: tel: fax: Referral ID Status Reason Start Date Expiration Date Visits Re quested Visits Authorized [id number] Closed 02/18/2020 1 1 Encounter Details Date Type Department Care Team (Latest Contact Info) Description 02/18/2020 10:59 EDT - 02/18/2020 23:59 EDT Hospital [facility] [place] [address] [place] [address] Flank pain Discharge Disposition: Home or Self [...] this encounter Medications at Time of Discharge acetaminophen (TYLENOL) 325 mg tablet Take 2 Tabs by mouth every 6 hours as needed for Pain. 100 Tab 11/27/2019 02/19/2020 albuterol 90 mcg/actuation inhaler Inhale 2 Puffs [...] 2 times daily as needed. 11/07/2019 07/15/2020 SYMBICORT 160-4.5 mcg/actuation HFA aerosol inhaler inhaler Inhale 2 Puffs as directed daily. 10/05/2019 06/20/2020 traMADoL (ULTRAM) 50 mg tablet Take 1 [...] Visit [facility] Ophthalmology - [address] [phone] Gagandeep Rome MD [address] [place] [address], [facility] [address] [place] [phone] 02/11/2025 13:30 EDT Telemedicine [facility] Hematology & Oncology - [address] [phone] Dana Padilla MD [address] [place] [address], [facility] 2 [place] [phone] documented as of this encounter Procedures Procedure Name Priority Date/Time Associated Diagnosis Comments CT RENAL STONE STAT 02/18/2020 11:54 EDT Flank pain documented in this encounter Results * CT RENAL STONE (02/18/2020 11:54 EDT) Anatomical Region Laterality Modality Body Computed Tomogra phy 02/18/2020 12:5 0 EDT Impressions 02/18/2020 12:50 EDT 1. Nonobstructing 2 mm left lower pole calculus. No hydronephrosis bilaterally. 2. 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 3. Sigmoid colonic diverticulosis without diverticulitis. Narrative 02/18/2020 12:[address] RENAL STONE ??02/18/2020 11:30 AM Signs and Symptoms/Comments: ?? Flank pain, kidney stone suspected Technique: Axial CT images obtained from abdomen immediately superior to level of kidneys through the pelvis without administration of contrast of any kind. Sagittal and coronal reformats generated. Comparison: November 26, 2019, October 21, 2018 Findings: Kidneys and ureters: No hydronephrosis bilaterally. Punctate 2 mm nonobstructing left lower pole calculus is seen. No nephrolithiasis on the right. The ureters are unremarkable. Bladder: The urinary bladder is decompressed which limits evaluation, however no calculi are visualized. Uterus, adnexa: The uterus is surgically absent. No pelvic masses are seen. Included lung bases: Clear. Unenhanced liver and gallbladder, as far as included: There is a nodular hepatic contour consistent with cirrhotic morphology. No oral contrast were deforming hepatic lesion. No intrahepatic or extrahepatic biliary duct dilatation. Status post cholecystectomy. Unenhanced spleen, pancreas, adrenal glands: Persistent splenomegaly. Overall stable left adrenal nodule. Unremarkable appearance of the right adrenal gland and pancreas. Bowel: There is sigmoid colonic diverticulosis without diverticulitis. No bowel obstruction. Peritoneal cavity: No free intraperitoneal air or free fluid. Abdominal wall: Hernia repair mesh is seen in the anterior right abdominal wall. Multiple surgical clips are also seen in midline. No bowel containing hernias. Lymphovascular: The abdominal aorta is normal in course and caliber with mild atherosclerotic calcification. No aneurysm. Previously described chronic thrombus from known prior portal venous thrombosis is better visualized on prior contrast enhanced CT. However, enlargement of the splenic and portal veins is redemonstrated. Musculoskeletal: Calcified granuloma seen in the bilateral buttocks regions likely from prior injections. No suspicious osseous lesion. No acute osseous abnormality. Multilevel degenerative disc disease and facet arthropathy is again demonstrated. Wildlife Technician: No additional findings. Procedure Note Terra Rene MD - 02/18/2020 CT RENAL STONE 02/18/2020 11:30 AM Signs and Symptoms/Comments: Flank pain, kidney stone suspected Technique: Axial CT images obtained from abdomen immediately superior to level ofkidneys through the pelvis without administration of contrast of any kind.Sagittal and coronal reformats generated. Comparison: November 26, 2019, October 21, 2018 Findings: Kidneys and ureters: No hydronephrosis bilaterally. Punctate 2 mmnonobstructing left lower pole calculus is seen. No nephrolithiasis on theright. The ureters are unremarkable. Bladder: The urinary bladder is decompressed which limits evaluation,however no calculi are visualized. Uterus, adnexa: The uterus is surgically absent. No pelvic masses areseen. Included lung bases: Clear. Unenhanced liver and gallbladder, as far as included: There is a nodularhepatic contour consistent with cirrhotic morphology. No oral contrastwere deforming hepatic lesion. No intrahepatic or extrahepatic biliaryduct dilatation. Status post cholecystectomy. Unenhanced spleen, pancreas, adrenal glands: Persistent splenomegaly.Overall stable left adrenal nodule. Unremarkable appearance of the rightadrenal gland and pancreas. Bowel: There is sigmoid colonic diverticulosis without diverticulitis. Nobowel obstruction. Peritoneal cavity: No free intraperitoneal air or free fluid. Abdominal wall: Hernia repair mesh is seen in the anterior right abdominalwall. Multiple surgical clips are also seen in midline. No bowelcontaining hernias. Lymphovascular: The abdominal aorta is normal in course and caliber withmild atherosclerotic calcification. No aneurysm. Previously describedchronic thrombus from known prior portal venous thrombosis is bettervisualized on prior contrast enhanced CT. However, enlargement of thesplenic and portal veins is redemonstrated. Musculoskeletal: Calcified granuloma seen in the bilateral buttocksregions likely from prior injections. No suspicious osseous lesion. Noacute osseous abnormality. Multilevel degenerative disc disease and facetarthropathy is again demonstrated. Wildlife Technician: No additional findings. IMPRESSION 1. Nonobstructing 2 mm left lower pole calculus. No hydronephrosisbilaterally. 2. Cirrhotic morphology of the liver with sequelae of portal venoushypertension. 3. Sigmoid colonic diverticulosis without diverticulitis. us Lon Ortez MD IMG CT ORDERABLES Final Resul t documented in this encounter Visit Diagnoses Diagnosis Flank pain Abdominal pain, unspecified site documented in this encounter Care Teams Special Education Coordinator Relationship Specialty Start Date End Date Alma Farfan MD PCP - General 03/14/19 05/21/20 documented as of this encounter
--- OUTSIDE RECORDS SUMMARY | 2024-11-22 17:23 | XMS_ITS | Encounter Summary ---
Author Organization [facility] Address [address] [place] [address] Care Team Providers Care Piano Accompanist Name Role Phone Alma Farfan MD Primary Care Provider [phone] Encounter Details Date Type Department Care Team (Latest Contact Info) Description 01/23/2020 Travel Social History Tobacco Use Types Packs/Day [...] [facility] Ophthalmology - [address] [phone] Gagandeep Rome MD [address] [place] [address], [facility] [address] [place] [phone] 02/11/2025 13:[address] [facility] Hematology & Oncology [address] [phone] Dana Padilla MD [address] [place] [address], [facility] [address] [place] [phone] documented as of this encounter Visit Diagnoses Not on filedocumented in this encounter Care Teams Piano Accompanist Relationship Specialty Start Date End Date Alma Farfan MD PCP - General 03/14/19 05/21/20 documented as of this encounter
--- OUTSIDE RECORDS SUMMARY | 2024-11-22 17:23 | XMS_ITS | Encounter Summary ---
Author Organization [facility] Address [address] [place] [address] Care Team Providers Care Inspector And Mender Name Role Phone Alma Farfan MD Primary Care Provider [phone] Emigdio Veronica MD Primary Care Provider + Starr Paige MD Unavailable Dana Padilla MD Unavailable Izabella Snowden [facility] Unavailable [phone] None, Provider Primary Care Provider Unavailabl e Gabriel Gandara Primary Care Provider Mirna Guerrero Primary Care Provider + Encounter Details Date Type Department Care Team (Latest Contact Info) Description 03/05/2020 Lab Requisition [facility] Pathology & Laboratory Medicine - [facility] [address] [place], [place] [address]84[address] Alma Farfan MD [address] [place] [phone] Nonalcoholic steatohepatitis (QUIROZ); Hypothyroidism, unspecified Social History Tobacco Use Types Packs/Day Years [...] 01/04/2025 13:00 EST Office Visit [facility] Ophthalmology - [address] [address] Gagandeep Rome MD [address] [place] [address], [address] [place] [phone] 02/11/2025 13:30 EDT Telemedicine [facility] Hematology & Oncology - [address] [phone] Dana Padilla MD [address] [place] [address], [address] [place] [phone] documented as of this encounter Visit Diagnoses Diagnosis Nonalcoholic steatohepatitis (QUIROZ) Other chronic nonalcoholic liver disease Hypothyroidism, unspecified documented in this encounter Additional Health Concerns Infection Onset Date Last Indicated Resolved Time R/O COVID-19 Comment:Per MD Salmon 04/19/2020 04/19/2020 04/19/2020 14:46 E DT R/O COVID-19 08/25/2020 08/25/2020 08/30/2020 22:1 5 [...] as of this encounter Care Teams Inspector And Mender Relationship Specialty Start Date End Date Alma Farfan MD PCP - General 03/14/19 05/21/20 Emigdio Veronica MD [address] [place] [phone] PCP - General Internal Medicine - Primary Care 05/22/20 02/21/24 None, Provider PCP - General 02/24/24 03/18/24 Gabriel Gandara PA PCP - General 03/19/24 09/11/24 Mirna Guerrero PA [address] [place] [address] PCP - General 09/12/24 Starr Paige MD [address] [place] [phone] Hematology 10/08/21 06/09/22 Dana Padilla MD [address] [place] [address], [address] [place] [address] Hematology 01/13/22 06/09/22 Izabella Snowden, DARNELL 1 [facility], [address] [place] [address] Mines Inspector 02/21/23 05/03/24 documented as of this encounter
--- OUTSIDE RECORDS SUMMARY | 2024-11-22 17:23 | XMS_ITS | Encounter Summary ---
Author Organization [facility] Address [address] [place] [address] Care Team Providers Care Tower Control Operator Name Role Phone Alma Farfan MD Primary Care Provider [phone] Encounter Details Date Type Department Care Team (Late st Contact Info) Description 03/05/2020 12:45 EDT Phlebotomy Only [facility] Laboratory Services - [facility] ([facility] [address] [place] [address] Procurement Forester, [facility] Phlebotomy Pancytopenia ([facility]) (Primary Dx) Social History Tobacco [...] [facility] Ophthalmology - [address] [phone] Gagandeep Rome MD [address] [place] [address] 5 [place] [phone] 02/11/2025 13:30 EDT Telemedicine [facility] [place] Hematology & Oncology [address] [phone] Dana Padilla MD [address] [place] [address] 2 [place] [phone] documented as of this encounter Visit Diagnoses Diagnosis Pancytopenia (HCC-CMS)- Primary Other pancytopenia documented in this encounter Care Teams Tower Control Operator Relationship Specialty Start Date End Date Alma Farfan MD PCP - General 03/14/19 05/21/20 documented as of this encounter
--- OUTSIDE RECORDS SUMMARY | 2024-11-22 17:23 | XMS_ITS | Encounter Summary ---
Author Organization [facility] Address [address] [place] [address] Care Team Providers Care Scale Adjuster Name Role Phone Alma Farfan MD Primary Care Provider [phone] Encounter Details Date Type Department Care Team (Late st Contact Info) Description 03/06/2020 8:00 EDT Phlebotomy Only [facility] ED Center 2 Phlebotomy [address], [place] [id number] [employer], [facility] Phlebotomy Hypothyroidism, acquired (Primary Dx); Pancytopenia (HCC-CMS); Nonalcoholic steatohepatitis; Acquired pancytopenia (HCC-CMS); Recurrent major depressive disorder, remission status unspecified (HCC-CMS); Hepatic cirrhosis, unspecified hepatic cirrhosis type, unspecified whether ascites present (HCC-CMS) Social History Tobacco Use Types Packs/Day [...] encounter Miscellaneous Notes * Addendum Note - Sherif Darden - 03/06/2020 0800 EDTAddended by: SHERIF DARDEN on: 04/30/2020 09:19 Modules accepted: Orders documented in this encounter Plan of Treatment Upcoming Encounters Date Type Department Care Team (Late st Contact Info) Description 01/04/2025 13:00 EST Office Visit [facility] Ophthalmology [address] [id number] Gagandeep Rome MD [address] [place] [address], [address] [place] [phone] 02/11/2025 13:30 EDT Telemedicine [facility] Hematology & Oncology - [address] [address] Dana Padilla MD [address] [facility], [facility], [address] [place] [address] documented as of this encounter Procedures Procedure Name Priority Date/Time Associated Diagnosis Comments DIFFERENTIAL, AUTOMATED MANUAL Today 03/06/2020 8:17 EDT Pancytopenia (HCC-CMS) COMPREHENSIVE METABOLIC PANEL (ONCOLOGY USE ONLY-INC MG) STAT 03/06/2020 8:17 EDT Pancytopenia (HCC-CMS) AFP TUMOR MARKER Routine 03/06/2020 8:17 EDT Pancytopenia (HCC-CMS) Hypothyroidism, acquired Nonalcoholic steatohepatitis Acquired pancytopenia (HCC-CMS) COMPLETE BLOOD COUNT AND DIFFERENTIAL STAT 03/06/2020 8:17 EDT Pancytopenia (HCC-CMS) TSH Routine 03/06/2020 8:17 EDT Pancytopenia (HCC-CMS) Hypothyroidism, acquired Nonalcoholic steatohepatitis Acquired pancytopenia (HCC-CMS) HEMOGLOBIN A1C Routine 03/06/2020 8:17 EDT Pancytopenia (HCC-CMS) Hypothyroidism, acquired Nonalcoholic steatohepatitis Acquired pancytopenia (HCC-CMS) FERRITIN Routine 03/06/2020 8:17 EDT Pancytopenia (HCC-CMS) documented in this encounter Results * HEMOGLOBIN A1C (03/06/2020 8:17 EDT) Hemoglobin A1c 5.1 <5.7 % 03/12/2020 12:37 EDT [facility] Comment: Glycemic Status References: Normal: ??<5.7% Pre-Diabetes: ??5.7% - 6.4% Diagnostic of Diabetes: ??> or = 6.5% (if confirmed) Goals for glycemic control in diabetics (ADA 2017): <7.0% target for non adults with diabetes. <7.5% target for children and adolescents with Type I Diabetes. More or less stringent targets may be appropriate for individual patients. Est Avg Glucose 100 mg/dL 0 12:37 EDT [facility] Comment: The eAG represents the A1c result expressed as average glucose in mg/dL. Blood VENOUS BLOOD / Unknown Venipuncture / Unknown 03/06/2020 8:17 EDT 03/06/2020 8:24 EDT Alma Farfan MD CHEMISTRY & BLOOD GAS ORD ERABLES Final Result Performing Organization Address [facility] de Phone Number [facility] [address] [place] [address] * AFP TUMOR MARKER (03/06/2020 8:17 EDT) Pathologist [facility] AFP Tumor Marker <2.5 <8.1 ng/mL 03/12/2020 10:09 EDT [facility] Comment: AFP Tumor Marker cannot be interpreted in females. ?? NOTE: Serum AFP concentrations should not be interpreted as absolute evidence for the presence or absence of malignant disease. Assayed on Siemens ADVIA Centaur XPT using chemiluminescent technology. ??Values obtained by using different assay methods cannot be used interchangeably. Blood VENOUS BLOOD / Unknown Venipuncture / Unknown 03/06/2020 8:17 EDT 03/06/2020 8:24 EDT Alma Farfan MD CHEMISTRY & BLOOD GAS ORD ERABLES Final Result Performing Organization Address [facility] Co de Phone Number [facility] [address] [place] [address] * (ABNORMAL) TSH (03/06/2020 8:17 EDT) TSH 7.55(H) 0.47 - 4.68 uIU/mL 03/11/2020 14:26 EDT [facility] Blood VENOUS BLOOD / Unknown Venipuncture / Unknown 03/06/2020 8:17 EDT 03/06/2020 8:24 EDT Narrative [facility] - 03/11/2020 14:26 EDT The results of this assay can be falsely lowered due to the consumption of Biotin. us Alma Farfan MD CHEMISTRY & BLOOD GAS ORD ERABLES Final Result [facility] [address] [place] [id number] * (ABNORMAL) DIFFERENTIAL, AUTOMATED MANUAL (03/06/2020 8:17 EDT) Pathologist [facility] % Neutrophils 71.1 % [facility] % Lymphocytes 21.9 % 03/06/2020 9:09 [facility] % Atypical Lymphocytes 0.9 % 03/06/2020 9:09 [facility] % Monocytes 6.1 % 03/06/2020 9:09 [facility] Absolute Neutrophils 0.80(L) 2.20 - 8.85 K/cmm 03/06/2020 9:09 [facility] Absolute Lymphocytes 0.25(L) 1.09 - 3.30 K/cmm 03/06/2020 9:09 [facility] Absolute Atypical Lymphocytes 0.01 K/cmm 03/06/2020 9:09 [facility] Absolute Monocytes 0.07(L) 0.10 - 0.80 K/cmm 03/06/2020 9:09 [facility] Blood VENOUS BLOOD / Unknown Venipuncture / Unknown 03/06/2020 8:17 EDT 03/06/2020 8:24 EDT us Starr Paige MD HEMATOLOGY & PF4 ORDERABLES Final Result [facility] [address] [place] [address] * (ABNORMAL) COMPLETE BLOOD COUNT AND DIFFERENTIAL (03/06/2020 8:17 EDT) WBC 1.13(L) 4.00 - 12.40 K/cmm 03/06/2020 8:40 EDT [facility] RBC 3.82(L) 3.86 - 5.04 M/cmm 03/06/2020 8:40 EDT [facility] Hemoglobin 11.6 11.6 - 15.2 gm/dL 03/06/2020 8:40 EDT [facility] HCT 34.7(L) 34.9 - 44.4 % 03/06/2020 8:40 EDT [facility] MCV 91 81 - 98 fl 03/06/2020 8:40 EDT [facility] MCH 30.4 26.7 - 33.3 pg 03/06/2020 8:40 EDT [facility] MCHC 33.4 32.1 - 35.9 gm/dL 03/06/2020 8:40 EDT [facility] RDW-CV 14.0 <14.7 % 03/06/2020 8:40 EDT [facility] RDW-SD 46.7 <50.4 fl 03/06/2020 8:40 EDT [facility] PLT 42(L) 141 - 377 K/cmm 03/06/2020 8:40 EDT [facility] MPV 10.4 9.5 - 12.7 fl 03/06/2020 8:40 EDT [facility] Type of Differential: Manual 03/06/2020 8:40 T [facility] Blood VENOUS BLOOD / Unknown Venipuncture / Unknown 03/06/2020 8:17 EDT 03/06/2020 8:24 EDT us Starr Paige MD PACKAGES & DNA PROBE ORDERA BLES Final Result [facility] [address] [place] [address] * (ABNORMAL) COMPREHENSIVE METABOLIC PANEL (ONCOLOGY USE ONLY-INC MG) (03/06/2020 8:17 EDT) Sodium 137 136 - 145 mEq/L 03/06/2020 8:50 [facility] Potassium 3.8 3.5 - 5.0 mEq/L 03/06/2020 8:50 [facility] Chloride 105 96 - 110 mEq/L 03/06/2020 8:50 [facility] CO2 Total 28 22 - 32 mEq/L 03/06/2020 8:50 [facility] Glucose 75 70 - 100 mg/dL 03/06/2020 8:50 [facility] BUN 12 10 - 26 mg/dL 03/06/2020 8:50 [facility] Creatinine 0.81 0.52 - 1.04 mg/dL 03/06/2020 8:50 [facility] eGFR 80 >60 mL/min/1.7 3m2 03/06/2020 8:50 [facility] Comment:eGFR calculated lobito coppola CKD-EPI equation for non- Americans. Multiply eGFR by 1.16 for patients. Total Protein 6.1(L) 6.3 - 8.2 g/dL 03/06/2020 8:50 [facility] Albumin 3.5 3.4 - 4.9 g/dL 03/06/2020 8:50 [facility] Alkaline Phosphatase 64 38 - 126 U/L 03/06/2020 8:50 [facility] AST 18 15 - 46 U/L 03/06/2020 8:50 [facility] ALT 11 <35 U/L 03/06/2020 8:50 [facility] Bilirubin, Total 0.6 <1.4 mg/dL 03/06/20 20 8:50 [facility] Calcium 8.5 8.5 - 10.5 mg/dL 03/06/2020 8:50 [facility] Calculated Calcium 8.9 8.5 - 10.5 mg/dL 03/06/2020 8:50 EDT [facility] Magnesium 1.7 1.7 - 2.8 mg/dL 03/06/2020 8:50 EDT [facility] Blood VENOUS BLOOD / Unknown Venipuncture / Unknown 03/06/2020 8:17 EDT 03/06/2020 8:24 EDT Starr Paige MD CHEMISTRY & BLOOD GAS ORDER YANN Final Result [facility] [address] [place] [address] * FERRITIN (03/06/2020 8:17 EDT) Ferritin 135 10 - 291 ng/mL 03/06/2020 14:51 EDT [facility] Blood VENOUS BLOOD / Unknown Venipuncture / Unknown 03/06/2020 8:17 EDT 03/06/2020 8:24 EDT us Starr Paige MD CHEMISTRY & BLOOD GAS ORDER YANN Final Result Performing Organization Address City/[facility] Co de Phone Number [facility] [address] [place] [address] documented in this encounter Visit Diagnoses Diagnosis Hypothyroidism, acquired- Primary Unspecified hypothyroidism Pancytopenia (HCC-CMS) Other pancytopenia Nonalcoholic steatohepatitis Other chronic nonalcoholic liver disease Acquired pancytopenia (HCC-CMS) Other pancytopenia Recurrent major depressive disorder, remission status unspecified (HCC-CMS) Hepatic cirrhosis, unspecified hepatic cirrhosis type, unspecified whether ascites present (HCC-CMS) documented in this encounter Additional Health Concerns Infection Onset Date Last Indicated Resolved Time R/O COVID-19 Comment:Per MD Salmon 04/19/2020 04/19/2020 04/19/2020 14:46 E DT documented as of this encounter Care Teams Scale Adjuster Relationship Specialty Start Date End Date Alma Farfan MD PCP - General 03/14/19 05/21/20 documented as of this encounter
--- OUTSIDE RECORDS SUMMARY | 2024-11-22 17:23 | XMS_ITS | Encounter Summary ---
Author Organization [facility] Address [address] [place] [address] Care Team Providers Care Executive Candidate Developer Name Role Phone Alma Farfan MD Primary Care Provider [phone] [phone] Reason for Visit * Reason Comments Shortness of Breath here earlier today f or SOB, had an extensive workup. Home for one hour and s/s worsened. pt. is tearful and anxious. COVID negative at time of discharge today. Encounter Details Date Type Department Care Team (Late st Contact Info) Description 04/19/2020 21:58 EDT - 04/20/2020 6:24 EDT Emergency [facility] Emergency Department - [address] [id number] Latrell Easley MD [address] [place] [phone] Samson Mendoza MD [address] [place] [phone] Shortness of breath (Primary Dx); Respiratory abnormalities Discharge Disposition: Home or Self Care Social [...] Sign Reading Time Taken Comments Blood Pressure 105/62 04/20/2020 0600 EDT Pulse 86 04/19/20202156 EDT Temperature 36.4 ??C (97.5 ??F) 04/20/2020 06 EDT Respiratory Rate 16 04/20/2020599 EDT Oxygen Saturation 96% 04/20/2020599 EDT Inhaled Oxygen Concentration - - Weight 87.1 kg (192 lb) 04/19/20202156 EDT Height 165.1 cm (5' 5) 04/19/20202156 EDT Body Mass Index 31.95 04/19/20202156 EDT documented in this encounter Functional Status [...] this encounter Discharge Instructions * Discharge Instructions* Latrell Easley MD - 04/20/2020 1:13 EDT You had a significant evaluation during your first visit, which was all quite reassuring. This included a CT scan of your chest. You came back seemingly with some hyperventilation and stress response. There was a period where, when asleep, you would slow down or stop your breathing and your oxygen level dropped. This was somewhat consistent with a sleep apnea variant. You describe that this might of happened to during her hospitalization in November, but we could not find any evidence of this. Over time, you required no oxygen, no breathing support, and were observed and did well for severalhours here. Check in with your primary care provider. You may need testing for sleep apnea, and this can be arranged by your primary care provider. Return to the emergency department for worsening trouble breathing, high fever, chest pain, leg swelling or other concerning symptoms. documented in this [...] or Self Half-Way documented in this encounter ED Notes * Hodan Cohen RN - 04/20/2020 0620 EDT Nursing Discharge Note D: Patient noted with discharge orders to: Home. A: Reviewed discharge instructions with patient. Belongings collected and sent with patient. Taxi voucher given to patient. R: Patient verbalized understanding of discharge instructions and denied further questions. Patientambulated independently off unit. HODAN COHEN RN 04/20/2020 6:20 * Samson Mendoza MD - 04/20/2020 0503 EDT Assumed care Per Report: 59 y.o. female with a history of mild persistent asthma, CKD, cirrhosis, hypersplenism syndrome, bleeding disorder, and drug seeking behavior who presents to the ED for shortness of breath. Patient had been seen earlier in the day with a relatively unremarkable workup including a CXR, CTA Chest, BNP, troponin, EKG, all of which were unrevealing of acute emergent etiology. The patient was noted to have intermittent desaturations while sleeping, suggestive of HUEY. On sign out the patient was clinical stable for discharge but had absolutely no way of getting home safely. Plan to allow the patient to remain in the ED for a few hours until the earlier morning when she can discharged home. Patient was stable and without acute events during the remainder of their ED course. This documentation is recorded by Rhianna Dixon acting as Scribe under the direction and presenceof Samson Mendoza MD. Samson Mendoza MD: I personally performed the services recorded by the scribe in my presence. Iconfirm the scribe's documentation has been reviewed by me to accurately and completely record my work, treatment, procedures, and medical decision making. * Hodan Cohen RN - 04/20/2020 0425 EDT Patient ambulated OOB to bathroom independently. Back to bed, O2 monitor placed. No needs at this time. * Hodan Cohen RN - 04/20/2020 0300 EDT Report received from KENN Garcia. Assumed care of patient at 0300. Patient resting comfortably at this time. Will continue to monitor. * Ioana Irizarry RN - 04/20/2020 0133 EDT Patient sleeping in bed. OK per MD to come off monitor, O2 stable on room air. Patient does not have access to brown until morning, plan to stay in ED overnight. Will reassess in morning for ride. Lights turned off. Denies any needs * Ioana Irizarry RN - 04/20/2020 0007 EDT Patient ambulated to bathroom independently with steady gait. Denies any increase in dyspnea with exertion, lightheadedness or dizziness. MD Easley at bedside to reassess. VSS on room air. Provided with juice * Ioana Irizarry RN - 04/19/2020 2325 EDT Patient sleeping in bed, had an additional desat to 79% while sleeping. MD Easley at bedside to assess. Per patient, no diagnosis of sleep apnea but when I was admitted they had to put oxygen on meovernight. Patient desat to 78%. Capnography in place, patient having periods of apnea during desat. Placed on 3L NC. MD Barnett aware. * Latrell Easley MD - 04/19/2020 3796 EDT Attending Attestation I , Latrell Easley MD, performed a history and exam of this patient and discussed the case with the Resident. I reviewed the Resident's note and I concur with the documented findings and plan of care, unless otherwise documented in my own note. (Please find full documentation of this patient's encounter and care, including ROS and pain at thetime of discharge, in the Resident note) FINA Yun is a 59 y.o. female with a history of mild persistent asthma, CKD, cirrhosis, hypersplenism syndrome, bleeding disorder, and drug seeking behavior who presents to the ED for shortnessof breath. Per chart review, patient was seen in the ED earlier in the day after she became short of breath in the middle of the night last night. She reported at that time that her symptoms were aggravated by laying flat. She spoke to PCP, and was instructed to increase her dose of spironolactone this morning for shortness of breath and worsening peripheral edema. Earlier today, patient had normal CXR. Labs were significant for D-dimer elevated to 693, negative troponin, BNP within normal limits, and negative COVID-19 swab. CTA Chest showed no evidence of acute pulmonary embolus. Results of the CTPA: IMPRESSION 1. No evidence of pulmonary embolus. 2. Mild hydrostatic pulmonary edema and left ventricular chamber measuring at the upper limits of normal.. 3. Known cirrhosis and findings of portal hypertension within the upper abdomen. Patient states that she was home for 1 hour before her shortness of breath worsened. She reports that she is not on home O2 and does not use CPAP mask. She was tested years ago for sleep apnea, and test was negative. Patient does note that while hospitalized in November, she had episodes of oxygen desaturation while sleeping. Social history: Patient reports that she rents a room from an older couple and takes care of them, because one of them recently had surgery. 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 Maybe some faint expiratory wheezes on the left, lungs otherwise sound clear. Physical Exam No increased work of breathing. Patient is intermittently sleepy, but arouses and is oriented. No pursed lip breathing. Afebrile. Pulse oximeter does appear to drop into the mid 80s, with good plethysmography. Results ED Course A medical screening exam was performed. Based on this patient's clinical course, she initially seemed to be hyperventilating, but then during a period of observation had a fairly reliable desaturation into the mid 80s. This was something she described that has happened to her before during her hospitalization in November, but I cannot find any evidence of this, any reference to intermittent hypoxia, conversation about HEUY, or about homeoxygen assessments. We placed end-tidal capnography, and her hypoxia does appear to be associated with her falling asleep, and with her minute ventilation dropping, and with intermittent apnea. 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 I suspect that she will need a slight period of observation, but do not think she will need to be admitted to the hospital. Clinically suspect she has obstructive sleep apnea, and even if she does desaturate into the mid 80s, do not think she truly will need to be admitted to the hospital. Patient was given IV magnesium sulfate. (0110) On reevaluation, patient was sleeping and SpO2 was 95% on RA. She was discharged to home. Explicit return precautions/ contingency plans discussed. Impression Final diagnoses: Shortness of breath Respiratory abnormalities MDM Number of Diagnoses or Management Options New, needed workup Diagnosis management comments/ E&M Level: 5 Other: Amount and/or Complexity of Data Reviewed I have independently provided care, visualized images, tracings, and/or other specimens. This documentation is recorded by Arlette Hinojosa acting as Scribe under the direction and presence ofDr Latrell Easley. Dr Latrell Easley: I personally performed the services recorded by the scribe in my presence. I confirm the scribe's documentation has been reviewed by me to accurately and completely record my work, treatment, procedures, and medical decision making. * Ioana Irizarry RN - 04/19/2020 2250 EDT Checked on patient, resting in bed with eyes closed, RR WNL, O2 sat 97%. Monitor alarmed for O2 sat73% with good pleth. RN went in and told patient to take deep breaths, O2 recovered to 89%, then 93% within a few minutes. Now 97% on room air. EDtech at bedside to placed PIV. Resident aware. * Ioana Irizarry RN - 04/19/2020 2240 EDT Resident at bedside to assess patient. Plan for IV magnesium. OK for no repeat EKG * Ioana Irizarry RN - 04/19/2020 2227 EDT Patient placed call hines on stating she cannot breath. Sitting on edge of bed hyperventilating. On O2 and desk monitor, O2 sat 100%. Patient given NRB and encouraged deep breathing. Seen here earlier today, told to come back for worsening symptoms. Minimal wheezing in upper lung godwin, no relief from home inhalers or diuretics. * Lc Alexander RN - 04/19/2020 2201 EDT Pt roomed in 26 after being discharged one hour ago. COVID swab negative, EKG in computer from . documented in this encounter Plan of Treatment Upcoming Encounters Date Type Department Care Team (Late st Contact Info) Description 01/04/2025 13:00 EST Office Visit [facility] Ophthalmology - [address] [id number] Gagandeep Rome MD [address] [place] [address] [address] [place] [phone] 02/11/2025 13:30 EDT Telemedicine [facility] Hematology & Oncology [address] [phone] Dana Padilla MD [address] [place] [address], [facility] [address] [place] [phone] documented as of this encounter Visit Diagnoses Diagnosis Shortness of breath- Primary Respiratory abnormalities Respiratory abnormality, unspecified documented in this encounter Administered Medications Inactive Administered Medications - up to 3 most recent administrations Medication Order MAR Action Action Date Dose Rate Site magnesium sulfate 2g in D5W 50 ml 2 g, intravenous, Administer over 30 Minutes, NOW X1, 1 dose, On 04/20/20 at 0015, STAT New Bag 04/20/2020 0:23 EDT 2 g documented in this encounter Active and Recently Administered Medications Times are shown in EDT. Scheduled Medication Order 04/18/2020 04/19/2020 04/20/2020 magnesium sulfate 2g in D5W 50 ml (COMPLETED) 2 g, intravenous, Administer over 30 Minutes, NOW X1, 1 dose, On 04/20/20 at 0015, STAT 0023 (New Bag - Prov ider: Ioana Irizarry RN)0113 (Completed - Provider: Ioana Irizarry RN) documented in this encounter Orders Medications Ordered That Luc ht Not Have Been Administered Count Last Ordered Date First Ordered Date magnesium sulfate 2g in D5W 50 ml 1 020 documented in this encounter Care Teams Executive Candidate Developer Relationship Specialty Start Date End Date Alma Farfan MD PCP - General 03/14/19 05/21/20 documented as of this encounter
--- OUTSIDE RECORDS SUMMARY | 2024-11-22 17:23 | XMS_ITS | Encounter Summary ---
Author Organization [facility] Address [address] [place] [address] Care Team Providers Care Microarray Specialist Name Role Phone Alma Farfan MD Primary Care Provider [phone] Emigdio Veronica MD Primary Care Provider + Starr Paige MD Unavailable Dana Padilla MD Unavailable Izabella Snowden [facility] Unavailable None, Provider Primary Care Provider Unavailabl e Gabriel Gandara Primary Care Provider Mirna Guerrero Primary Care Provider + Encounter Details Date Type Department Care Team (Latest Contact Info) Description 03/12/2020 Lab Requisition [facility] Pathology & Laboratory Medicine - [facility] [address] [place], [place] [id number] Alma Farfan MD [address] [place] [phone] Opioid abuse, uncomplicated (HCC-CMS) Social History Tobacco Use Types Packs/Day [...] [facility] Ophthalmology - [address] [address] Gagandeep Rome MD [address] [place] [address], [address] [place] [address] 02/11/2025 13:30 EDT Telemedicine [facility] Cancer Center Hematology & Oncology - [facility] [address] [place] [address] Dana Padilla MD 111 [facility], [facility], [address] [place] [phone] documented as of this encounter Procedures Procedure Name Priority Date/Time Associated Diagnosis Comments BUPRENORPHINE AND METABOLITE CONFIRMATION PANEL Routine 03/11/2020 16:58 EDT Opioid abuse, uncomplicated ([facility]-CMS) OPIATE PANEL CONFIRMATION Routine 03/11/2020 16:58 EDT Opioid abuse, uncomplicated ([facility]-CMS) documented in this encounter Results * OPIATE CONFIRMATION, URINE (03/11/2020 16:58 EDT) Codeine, U NEGATIVE <50.0 ng/mL 03/17/2020 9:08 EDT [facility] Hydrocodone, U NEGATIVE <50.0 ng/mL 03/17/2020 9:08 EDT [facility] Hydromorphone, U NEGATIVE <50.0 ng/mL 03/17/2020 9:08 EDT [facility] Morphine, U NEGATIVE <50.0 ng/mL 03/17/2020 9:08 EDT [facility] Oxycodone, U NEGATIVE <50.0 ng/mL 03/17/2020 9:08 EDT [facility] Oxymorphone, U NEGATIVE <50.0 ng/mL 03/17/2020 9:08 EDT [facility] Comment: Testing Performed By: [address], [place] [address] Investigative Writer: Lilly Menjivar MD, Ph.D Urine 03/11/2020 16:5 8 EDT 03/12/2020 18:56 EDT us Alma Farfan MD URINALYSIS ORDERABLES Fin al Result [facility] [address] [place] [address] * (ABNORMAL) BUPRENORPHINE & METABOLITE, URINE (03/11/2020 16:58 EDT) Buprenorphine Confirmation 595.4(H) <10.0 ng/mL 03/17/2020 9:47 EDT [facility] Norbuprenorphine Confirmation 233.9(H) <10.0 ng/mL 03/17/2020 9:47 EDT [facility] Comment: Testing Performed By: [address] , [facility] [address] Investigative Writer: Lilly Menjivar MD, Ph.D Urine 03/11/2020 16:5 8 EDT 03/12/2020 18:56 EDT Alma Farfan MD GEN LAB UNIT COLLECT DEMI CARDENAS Final Result Performing Organization Address [facility] Co de Phone Number [facility] [address] [place] [address] documented in this encounter Visit Diagnoses Diagnosis Opioid abuse, uncomplicated (HCC-CMS) documented in this encounter Additional Health [...] documented as of this encounter Care Teams Microarray Specialist Relationship Specialty Start Date End Date Alma Farfan MD PCP - General 03/14/19 05/21/20 Emigdio Veronica MD [address] [place] [phone] PCP - General Internal Medicine - Primary Care 05/22/20 02/21/24 None, Provider PCP - General 02/24/24 03/18/24 Gabriel Gandara PA PCP - General 03/19/24 09/11/24 Mirna Guerrero PA [address] [place] [address] PCP - General 09/12/24 Starr Paige MD [address] [place] [phone] Hematology 10/08/21 06/09/22 Dana Padilla MD 111 [facility], [facility], [address] [place] [address] Hematology 01/13/22 06/09/22 Izabella Snowden, [facility] 1 [facility], 3rd [place] [address] Operator Assistant I Cementing 02/21/23 05/03/24 documented as of this encounter
--- OUTSIDE RECORDS SUMMARY | 2024-11-22 17:23 | XMS_ITS | Encounter Summary ---
Author Organization [facility] Address [address] [place] [address] Care Team Providers Care Cylinder Checker Name Role Phone Alma Farfan MD Primary Care Provider [phone] Reason for Referral * Radiology Services (Urgent) - Closed Specialty Diagnoses / Procedures Referred By [facility] Referred To Contact Diagnoses Flank pain Procedures CT RENAL STONE Lon Ortez MD Phone: tel: fax: Referral ID Status Reason Start Date Expiration Date Visits Re quested Visits Authorized [id number] Closed 02/18/2020 1 1 Reason for Visit * Reason Comments Cystoscopy Encounter Details Date Type Department Care Team (Late st Contact Info) Description 02/18/2020 10:00 EDT Office Visit [facility] Urology - [address] [phone] Lon Ortez MD [address] [place] [address], [address] [place] [address] Flank pain (Primary Dx); Gross hematuria Social History Tobacco Use Types Packs/Day Years [...] Refills Last Filled Start Date End Date traMADoL (ULTRAM) 50 mg tablet Take 1 Tab by mouth every 6 hours as needed for Pain. Daily Max: 200 mg 8 Tab 02/18/2020 04/26/2020 documented in this encounter Progress Notes * Lon Ortez MD - 02/18/2020 1000 EDT URO Office Cystoscopy Office cystoscopy for: Hematuria. Patient with gross hematuria and left flank pain. States her flank pain has worsened. She had a CT with delayed phase contrast only in November which I reviewed. Unable to assess for stones but had no hydro-on the left in particular no other filling defects. She consented to the office cystoscopy today due to her history of smoking and gross hematuria Anesthesia: 2% lidocaine gel . Procedure: Patient identified, prepped and draped in usual sterile manner 14 spanish. Flexible cystoscope inserted into urethra and guided into bladder under direct vision. Finding: No mucosal lesions, ureteral orifices in normal anatomic position. Normal cystoscopy. Plan: I would like her to get a stat CT of her abdomen pelvis without contrast to rule out stones. Urine cytology collected about 3 weeks ago was negative for high grade urothelial carcinoma. Lon Ortez MD February 18, 2020 documented in this encounter Miscellaneous Notes * Addendum Note - Lon Ortez MD - 02/18/2020 1000 EDTAddended by: LON ORTEZ on: 02/18/2020 10:18 Modules accepted: Orders documented in this encounter Plan of Treatment Upcoming Encounters Date Type Department Care Team (Late st Contact Info) Description 01/04/2025 13:00 EST Office Visit [facility] Ophthalmology - [address] [phone] Gagandeep Rome MD 111 [facility], [facility] 5 [place] [address] 02/11/2025 13:30 EDT Telemedicine [facility] [place] Hematology & Oncology - [address] [address] Dana Padilla MD [address] [place] [address], [facility] 2 [place] [phone] documented as of this encounter Procedures Procedure Name Priority Date/Time Associated Diagnosis Comments BACTERIAL CULTURE, URINE Routine 02/18/2020 10:20 EDT Gross hematuria documented in this encounter Results * CT [...] disease and facet arthropathy is again demonstrated. Automotive Designer: No additional findings. Procedure Note Terra Rene [...] disc disease and facetarthropathy is again demonstrated. Automotive Designer: No additional findings. IMPRESSION 1. Nonobstructing 2 mm left lower pole calculus. No hydronephrosisbilaterally. 2. Cirrhotic morphology of the liver with sequelae of portal venoushypertension. 3. Sigmoid colonic diverticulosis without diverticulitis. Lon Ortez MD IMG CT ORDERABLES Final Resul t * BACTERIAL CULTURE, URINE (02/18/2020 10:20 EDT) Organism ID Less than 10,000 CFU/ml Usual urogenital tiffanie. 02/19/2020 9:28 EDT [facility] Urine URINE SPECIMEN OBTAINED BY CLEAN CATCH PROCEDURE / Unknown Urine Collect / Unknown 02/18/2020 10:20 EDT 02/18/2020 10:44 EDT Lon Ortez MD MICROBIOLOGY - GENERAL ORDERA BLES Final Result Performing Organization Address City/State/[facility] Co de Phone Number [facility] [address] [place] [address] documented in this encounter Visit Diagnoses Diagnosis Flank pain- Primary Abdominal pain, unspecified site Gross hematuria Flank pain Abdominal pain, unspecified site documented in this encounter Care Teams Cylinder Checker Relationship Specialty Start Date End Date Alma Farfan MD PCP - General 03/14/19 05/21/20 documented as of this encounter
--- OUTSIDE RECORDS SUMMARY | 2024-11-22 17:23 | XMS_ITS | Encounter Summary ---
Author Organization [facility] Address [address] [place] [address] Care Team Providers Care Garment Inspector Name Role Phone Alma Farfan MD Primary Care Provider [phone] Encounter Details Date Type Department Care Team (Latest Contact Info) Description 02/18/2020 Travel Social History Tobacco Use Types Packs/Day [...] Office Visit [facility] Ophthalmology - [address] [phone] Gagandeep Rome MD [address] [place] [address] [address] [place] [phone] 02/11/2025 13:30 EDT Telemedicine [facility] Hematology & Oncology [address] [phone] Dana Padilla MD [address] [place] [address], [address] [place] [phone] documented as of this encounter Visit Diagnoses Not on filedocumented in this encounter Care Teams Garment Inspector Relationship Specialty Start Date End Date Alma Farfan MD PCP - General 03/14/19 05/21/20 documented as of this encounter
--- OUTSIDE RECORDS SUMMARY | 2024-11-22 17:24 | XMS_ITS | Encounter Summary ---
Author Organization [facility] Address [address] [place] [address] Care Team Providers Care Life Support Technician Name Role Phone Alma Farfan MD Primary Care Provider [phone] Reason for Visit * Reason Comments Follow-up Encounter Details Date Type Department Care Team (Late st Contact Info) Description 08/29/2019 10:00 EDT Office Visit [facility] Cancer Center Hematology & Oncology - [place] [address] [place] [address] Starr Paige MD [address] [place] [phone] Pancytopenia (HCC-CMS) (Primary Dx) Discharge Disposition: Auto Discharge Social History Tobacco Use Types Packs/Day Years [...] Sign Reading Time Taken Comments Blood Pressure 124/68 08/29/2019 1020 EDT Pulse 65 08/29/2019 1020 EDT Temperature 36.1 ??C (96.9 ??F) 08/29/2019 1020 EDT Respiratory Rate 18 08/29/2019 1020 EDT Oxygen Saturation 98% 08/29/2019 1020 EDT Inhaled Oxygen Concentration - - Weight 93.4 kg (205 lb 14.4 oz) 08/29/2019 1020 EDT Height - - Body Mass Index 34.26 04/23/2019 2226 EDT documented in this encounter Functional Status * Are you deaf or do you have serious difficulty hearing? Answer Date of Assessment Author No 08/24/2017 23:43 Inderjit Radford RN * Are you blind or do you have serious difficulty seeing, even when wearing glasses? Answer Date of Assessment Author Yes 08/24/2017 23:43 Inderjit Radford RN * Do you have serious difficulty walking or climbing stairs? (5 years old or older) Answer Date of Assessment Author No 08/24/2017 23:43 Inderjit Radford RN * Do you have difficulty dressing or bathing? (5 years old or older) Answer Date of Assessment Author No 08/24/2017 23:43 Inderjit Radford RN * Because of a physical, mental, or emotional condition, does this person have difficulty doing errands alone such as visiting a doctor's office or shopping? Answer Date of Assessment Author No 03/03/2018 9:28 Inderjit Radford RN documented as of this encounter Mental Status * Because of a physical, mental, or emotional condition, does this person have serious difficulty concentrating, remembering, or making decisions? Answer Entry Date Author No 03/03/2018 9:28 Inderjit Radford RN documented in this encounter Discharge Diagnoses Diagnosis D61.818 Other pancytopenia-D61.818[ICD-10-CM] documented in this encounter Discharge Disposition Disposition Code Departure Means Destination Auto Discharge documented in this encounter Progress Notes * Starr Paige MD, - 08/29/2019 1000 EDT Hematology follow up note. Date: 08/29/2019 DIAGNOSIS: Pancytopenia associated with liver cirrhosis and portal hypertension with hypersplenism. CURRENT THERAPY: none PRIOR THERAPY: none CC: follow up HISTORY OF PRESENT ILLNESS: 56 years old white female with past medical history of asthma, hyperlipidemia, GERD, history of nonalcoholic fatty liver disease, history of hepatitis C as well as known decompensated liver cirrhosis with portal hypertension, severe hepatosplenomegaly as well as history of hepatic encephalopathy is being transferring care from [facility] to [facility] because ofrelocation. Patient is following Dr. Ijeoma Smith, GI Department in [facility] for long-standing decompensated liver cirrhosis, portal hypertension and hepatic encephalopathy. She was also formerly seen by hematology oncology clinic in [facility], underwent bone marrow biopsy for pancytopenia [...] by Dr. Dickens although then relocated to [place]. Her most recent CBC showed WBC 1.99 with ANC 1.3, resolution of anemia, stable thrombocytopenia at 54K. his CMP profile is otherwise unremarkable with normal liver function tests. Her most recent ultrasound of the abdomen show enlarged spleen measuring 21 x 12.6 x 17.3 cm. NormalDoppler floor within the splenic artery and vein. Interval history. Patient is back to the clinic for scheduled follow-up. Her main complaints are decreased appetite, diarrhea, fatigue not relieved by rest, nausea, vomiting, insomnia, anxiety, mild dizziness, pain in the legs, headaches, occasional cough, shortness of breath, swelling of her handsand feet and occasional urinary leakage. Since last time in the clinic she was seen for the second opinion [place] [facility] [place] she underwent a bone marrow biopsy that showed mature trilineage hematopoiesis with no evidence of bone marrow disease. She had an IV iron infusion on April 17, 2019 andMay 01, 2019 tolerated well. She continues to see Dr. Smith in hepatology in [facility] at this point is on active surveillance with every 6-month ultrasound of the abdomen. TIPS and liver transplant listing are on [...] Dr Amelia Tijerina and notes from [facility] patient misconstrued information to several providers [...] [pregabalin]; and Reglan [metoclopramide hcl] MEDICATIONS: albuterol, ergocalciferol (vitamin D2), ferrous gluconate, fluticasone propionate, levothyroxine sodium, omeprazole, traMADol, and traZODone SOCIAL HISTORY: Social History Socioeconomic History ??? Marital status: Single Spouse name: None ??? Number of children: None ??? Years of education: None ??? Highest education level: None Occupational History ??? None Social Needs ??? Financial resource strain: None ??? Food insecurity: Worry: None Inability: None ??? Transportation needs: Medical: None Non-medical: None Tobacco Use ??? Smoking status: Current Every Day Smoker Packs/day: 1.00 Years: 20.00 Pack years: 20.00 ??? Smokeless tobacco: Never Used Substance and Sexual Activity ??? Alcohol use: No Alcohol/week: 0.0 standard drinks ??? Drug use: No ??? Sexual activity: None Lifestyle ??? Physical activity: Days per week: None Minutes per session: None ??? Stress: None Relationships ??? Social connections: Talks on phone: None Gets together: None Attends advent service: None Active member of club or organization: None Attends meetings of clubs or organizations: None Relationship status: None ??? Intimate partner violence: Fear of current or ex partner: None Emotionally abused: None Physically abused: None Forced sexual activity: None Other Topics Concern ??? None Social History Narrative ??? None FAMILY HISTORY: Family History Problem Relation Age of Onset ??? Cancer Maternal Grandmother ??? Diabetes Mother ??? Coronary Artery Disease Father ??? Clotting Disorder Father ??? Diabetes Brother PHYSICAL EXAMINATION: BP 124/68 Pulse 65 Temp 36.1 ??C (96.9 ??F) (Tympanic) Resp 18 Wt 93.4 kg (205 lb 14.4 oz) SpO2 98% BMI 34.26 kg/m?? Constitutional: alert and oriented to person, [...] thought content normal. LABS REVIEWED: Results for RISSA YUN ( ) as of 08/29/2019 15:26 Ref. Range 08/29/2019 10:04 WBC Latest Ref Range: 4.0 - 12.4 K/cmm 1.12 (L) RBC Latest Ref Range: 3.86 - 5.04 M/cmm 3.77 (L) Hemoglobin Latest Ref Range: 11.6 - 15.2 gm/dl 11.7 HCT Latest Ref Range: 34.9 - 44.4 % 36.3 MCV Latest Ref Range: 81 - 98 fl 96 MCH Latest Ref Range: 26.7 - 33.3 pg 31.0 MCHC Latest Ref Range: 32.1 - 35.9 gm/dl 32.2 RDW-CV Latest Ref Range: <14.7 % 13.3 RDW-SD Latest Ref Range: <50.4 fl 47.2 PLT Latest Ref Range: 141 - 377 K/cmm 36 (L) MPV Latest Ref Range: 9.5 - 12.7 fl 10.6 Neutrophils Latest Units: % 73.9 Lymphocytes Latest Units: % 12.2 Monocytes Latest Units: % 11.3 Eosinophils Latest Units: % 0.9 Basophils Latest Units: % 1.7 ABS Neutrophils Latest Ref Range: 2.20 - 8.85 K/cmm 0.83 (L) ABS Lymphs Latest Ref Range: 1.09 - 3.30 K/cmm 0.14 (L) ABS Monocytes Latest Ref Range: 0.1 - 0.8 K/cmm 0.13 ABS Eosinophils Latest Ref Range: 0.03 - 0.61 K/cmm 0.01 (L) ABS Basophils Latest Ref Range: 0.01 - 0.11 K/cmm 0.02 Type of Diff: Unknown Manual Results for RISSA YUN ( ) as of 08/29/2019 15:26 Ref. Range 08/29/2019 10:04 Sodium Latest Ref Range: 136 - 145 mEq/L 141 Potassium Latest Ref Range: 3.5 - 5.0 mEq/L 4.1 CO2 Latest Ref Range: 22 - 32 mEq/L 30 Chloride Latest Ref Range: 96 - 110 mEq/L 104 BUN Latest Ref Range: 10 - 26 mg/dl 13 Creatinine Latest Ref Range: 0.52 - 1.04 mg/dl 0.82 ALT Latest Ref Range: <34 U/L 24 GFR, Calculated Latest Ref Range: >60 ml/min/1.73m2 79 Glucose, Serum Latest Ref Range: 70 - 100 mg/dl 71 Calcium Latest Ref Range: 8.5 - 10.5 mg/dl 8.8 Calculated Calcium Latest Ref Range: 8.5 - 10.5 mg/dl 8.9 Magnesium Latest Ref Range: 1.7 - 2.8 mg/dl 1.9 Total Protein Latest Ref Range: 6.3 - 8.2 g/dl 6.6 Albumin Latest Ref Range: 3.4 - 4.9 g/dl 3.9 Total Alkaline Phosphatase Latest Ref Range: 38 - 126 U/L 91 AST Latest Ref Range: 15 - 46 U/L 24 Bilirubin, Total Latest Ref Range: <1.4 mg/dl 0.8 IMAGING REVIEWED: June 01, 2017: Findings: ? [...] interpretation and agree with the findings. PATHOLOGY: Bone marrow biopsy 04/09/2013: (Performed at [facility] ---Diagnosis--- ? 1. Progressive pancytopenia, chronic Hep [...] Patient was formerly evaluated at [facility] with subsequent bone marrow biopsy that showed no evidenceof clonal population or any maturation defects, her BMBX in April 2019 again confirmed the similar findings - Recommended the patient to continue follow with her GI provider at [facility] [place]. Smith, if counts deteriorate might consider TIPS - If patient requires surgery we could [...] placebo-controlled trials (L-PLUS 1 and L-PLUS 2, [id number]) involving 312 patients with chronic liver disease and severe thrombocytopenia who were undergoing an invasive procedure and had a platelet count less than 50 x 109/L. Plan: - Return in 6 months, labs every 3 months. Starr Paige Hematology and Oncology I spent 25 minutes face to face time with the patient, and 20 minutes of that time were spent in counseling [...] Office Visit [facility] Ophthalmology - [address] [phone] Gagandeep Rome MD [address] [place] [address], [facility] 5 [place] [phone] 02/11/2025 13:30 EDT Telemedicine [facility] Cancer Center Hematology & Oncology - [address] [phone] Dana Padilla MD [address] [place] [address], [address] [place] [address] documented as of this encounter Visit Diagnoses Diagnosis Pancytopenia (HCC-CMS)- Primary Other pancytopenia documented in this encounter Care Teams Life Support Technician Relationship Specialty Start Date End Date Alma Farfan MD PCP - General 03/14/19 05/21/20 documented as of this encounter
--- OUTSIDE RECORDS SUMMARY | 2024-11-22 17:24 | XMS_ITS | Encounter Summary ---
Author Organization [facility] Address [address] [place] [address] Care Team Providers Care Supervisor Paper Machine Name Role Phone Alma Farfan MD Primary Care Provider [phone] Reason for Visit * Reason Comments Chest Pain dizziness episode at work when she stood up; Chest pain since this morning. Had CP when she went to work; Also states she has had a cold. Describes as pain across her chest. In no acute distress. Receiving phone calls in triage. Encounter Details Date Type Department Care Team (Late st Contact Info) Description 10/03/2019 13:24 EST - 10/03/2019 17:49 EST Emergency [facility] Emergency Department - [address] [id number] Jaison Vale MD PhD [address] [place] [phone] Bobby Mathur MD [address] [place] [phone] Chest pain, unspecified type (Primary Dx); Dizziness Discharge Disposition: Home or Self Care Social [...] Sign Reading Time Taken Comments Blood Pressure 115/62 10/03/2019 1733 EST Pulse 64 10/03/2019 1315 EST Temperature 36.5 ??C (97.7 ??F) 10/03/2019 1315 EST Respiratory Rate 16 10/03/2019 1347 EST Oxygen Saturation 97% 10/03/2019 1347 EST Inhaled Oxygen Concentration - - Weight 93 kg (205 lb) 10/03/2019 1315 EST Height 165.1 cm (5' 5) 10/03/2019 1315 EST Body Mass Index 34.11 10/03/2019 1315 EST documented in this encounter Functional Status [...] Radford RN documented in this encounter Discharge Instructions * Discharge Instructions* Bobby Mathur MD - 10/03/2019 17:41 EST Thank you for coming to the emergency department. You had extensive testing including laboratory studies. Based on your symptoms at this time I believe the most likely cause may be a viral infection.Your blood work is consistent with your previous blood work. Please return to the ER for severe pain high fevers persistent vomiting or any other concerns. documented in this encounter Medications at Time of Discharge albuterol 90 mcg/actuation inhaler Inhale 2 Puffs as directed every 4 hours as needed. 09/18/2021 ERGOCALCIFEROL, VITAMIN D2, (VITAMIN D ORAL) Take by mouth. 01/2021 ferrous gluconate (FERGON) 324 mg (38 mg iron) tablet Take 324 mg by mouth daily with breakfast. 04/23/2021 fluticasone (FLOVENT) 110 mcg/actuation inhaler Inhale 110 mcg as directed 2 times daily. 11/26/2019 LEVOTHYROXINE SODIUM (LEVOTHYROXINE ORAL) Take 25 mcg by mouth daily. Unknown dose 11/03/2020 omeprazole (PRILOSEC) 20 mg capsule Take 20 mg by mouth daily. 11/26/2019 traMADol (ULTRAM) 50 mg tablet Take 1 Tab by mouth at bedtime as needed for Pain. Daily Max: 50 mg 6 Tab 08/17/2019 11/27/2019 traZODone (DESYREL) 100 mg tablet Take 150 mg by mouth at bedtime as needed. 04/28/2020 documented as of this encounter Discharge Disposition Disposition Code Departure Means Destination Home or Self Senior Care documented in this encounter Progress Notes * Catrachito Carl, RT - 10/03/2019 1351 EST Respiratory Consult/Progress Note Indications for Respiratory therapy: Initial Consult/Hx of Asthma Data Vitals: Heart Rate: 64 BPM, Resp: 16, SpO2: 97 % FIO2/O2 Device: , , O2 Device: None, RT Orders: 1 Albuterol in ED Protocol Scoring: Bronchodilator/Inhalation Therapy Frequency Bronchodialator - Clinical Indications: History of bronchospasm Breath Sounds: Faint wheezing, decreased throughout Response: Mild response, increase subjective per PATTERN GRADER Pulse: <100 Resp Rate: <18 SOB: At rest Total Score: 5 Comment:: Per protocol QID Airway Clearance Therapy Frequency Airway Clearance - Clinical Indications: No clinical indications Breath Sounds: Clear / diminished Sputum: Small (tsp) / None Consistency: None Cough Effort: Strong, non-productive Color: None Total Score: 0 Comment: not indicated Hyperinflation Therapy Frequency Hyperinflation - Clinical Indications: No clinical indications Breath Sounds: Other Surgery: No X-Ray / Atelectasis: No O2 Requirements: O2 at baseline Mobility Status: Mobile / at baseline Total: 1 Comment: not indicated Action/Events Respiratory events; Patient states she had a hx of asthma as a child and has not used inhalers in years. Current smoker. One albuterol given with slight improvement. Dry unproductive cough. No home O2, CPAP/BIPAP. Response/Results Weaning and Toleration of treatments; CATRACHITO CARL, RT 10/03/19 documented in this encounter ED Notes * Myriam Haas RN - 10/03/2019 1748 EST Ordered for discharge. Aftercare instructions, follow up, s/s to return reviewed with pt. IV removed, VSS, ambulatory upon discharge. * Cameron Nayak - 10/03/2019 1651 EST I, Cameron Nayak, notified Dr. BELL of WBC-0.73, ANF- 0.48 on 10/03/2019 at 16:51. * Myriam Haas RN - 10/03/2019 1618 EST Blood drawn via saline lock per protocol, purple tube(s) sent to lab per order. * Bobby Mathur MD - 10/03/2019 1607 EST I, Anila Hoffman, am scribing for Bobby Mathur MD while he/she is personally performing the service. Anila Hoffman 10/03/2019 16:07 Tara Boothe is a 59 y.o. female who presents to the ED with chest pain. Care and work-up prior to sign out includes POCT US significant for trace pericardial effusion. I assumed care of patient from Dr. Vale with CXR and labs pending. After I assumed care: Patient had labs that were reviewed independently by myself, significant for neutropenia with WBC 0.73 not grossly changed from baseline, negative troponin. Patient had chest X-ray, which was significant for no acute cardiopulmonary processes. Patient had x-rays that were obtained, reviewed, and interpreted by myself and a radiologist. Please see radiology report for further details. 1730: Re-evaluated the patient and informed her of her lab and imaging results. The patient reportsmild persistent chest pressure that is improved from prior, however is amenable to discharge. The patient was given a trial of ambulation in the Emergency Department. The patient was able to ambulate about the Emergency Department without difficulty at baseline. The patient was discharged home with instructions to follow up closely with her PCP. Prior to discharge usual and customary precautions were reviewed with the patient and/or family including follow-up instructions and reasons to return to the Emergency Department if condition worsens, does not improve as expected, or other new concerns arise. MDM: 59-year-old female multiple medical problems including pancytopenia of unclear etiology presenting with what was signed out to me as chest pain however when I evaluated the patient she complained of more vertiginous symptoms her symptoms are extremely atypical for a PE the d-dimer was sent by the previous physician however I think that clinically the risk of a pulmonary embolism is extremely low I do not think she merits the need for a CT scan at this time. She was able to ambulate in the emergency department of a nonfocal neurologic exam showed negative troponin and reassuring EKG. She felt well and prefers to go home advised to follow-up with paramedical doctor return precautions were given will discharge This documentation is recorded by Anila Hoffman acting as Scribe under the direction and presence of Bobby Mathur MD. Bobby Mathur MD: I personally performed the services recorded by the scribe in my presence. I confirm the scribe's documentation has been reviewed by me to accurately and completely record my work, treatment, procedures, and medical decision making. * Myriam Haas RN - 10/03/2019 1520 EST Blood drawn via saline lock per protocol, blue tube(s) sent to lab per order. * Jaison Vale MD - 10/03/2019 1405 EST This patient received an evaluation and medical screening exam for emergent medical conditions at the [facility] on 10/03/2019 Scribe attestation: This documentation is recorded by Danya Limon acting as Scribe under the directionand presence of Jaison Vale MD. Jaison Vale MD: I personally performed the services recorded by the scribe in my presence. I confirm the scribe's documentation has been reviewed by me to accurately and completely record my work, treatment, procedures, and medical decision making. FINA Boothe is a 59 y.o. female with PMH including pancytopenia, hypothyroidism, CKD, cirrhosisof the liver, ulcer, asthma, drug seeking behavior, and anxiety who presents to the ED for an evaluation of chest pain. Per the patient 3-4 days ago she developed intermittent dizziness when she stand s up. Today, she reports she was in the cooler at work, bending over, when she developed chest painand pressure. She endorses headache and pain with inspiration. However, she denies pain or swellingin her legs. She notes this is not similar to her ulcer presentations. Of note, the patient sees hematology at [facility] and [facility] for her low platelets. Patient denies pain now, or a history of blood clots. SH: The patient is a current every day, 1 ppd. The patient denies drinking alcohol. History was provided by: patient, medical records. Patient's pertinent PMH, FH, SH were reviewed and updated PRN. ROS A 10-point review of systems was performed. The patient answered negative to all questions with theexceptions of those explicitly detailed as positives in the HPI. Pertinent negatives are also explicitly stated. Physical Exam Vital Signs Temp: 36.5 ??C (97.7 ??F) Temp src: Temporal Pulse: 64 Heart Rate: 64 BPM Cardiac Rhythm: Normal sinus rhythm Resp: 16 SpO2: 97 % BP: 114/66 BP MAP: 77 mm Hg Nursing notes and vital signs were reviewed. Constitutional: Well appearing in no acute distress. Slightly overweight. Eyes: Pupils equal and reactive to light, no scleral icterus Mouth: Moist oral mucosa without apparent lesions Neck: Full ROM, no cervical LAD Heart: RRR without MRG Lungs: Clear to auscultation Abdomen: Soft NT/ND, positive BS Skin: No overt rashes on exposed skin Extremities: Moving spontaneously, warm and well perfused. Neuro: Grossly neurologically intact with normal speech Psych: No agitation or overt thought disorder Medical Decision Making Tara Boothe is a 59 y.o. female with PMH including pancytopenia, hypothyroidism, CKD, cirrhosisof the liver, ulcer, asthma, drug seeking behavior, and anxiety who presents to the ED for an evaluation of chest pain. The differential diagnosis for this patient includes but is not limited to: gastritis, ACS, pericarditis. Laboratory Results Labs Reviewed PROFILE ED CARDIAC PACK Narrative: The following orders were created for panel order PROFILE ED CARDIAC PACK. Procedure Abnormality Status --------- ------ ELECTROLYTES[[id number]] BUN[[id number]] CREATININE[[id number]] MAGNESIUM[[id number]] COMPLETE BLOOD COUNT AND...[[id number]] TROPONIN I[[id number]] SCREENING GLUCOSE[[id number]] HOLD BLUE TOP[[id number]] Please view results for these tests on the individual orders. NT PRO BNP D-DIMER ELECTROLYTES BUN CREATININE MAGNESIUM COMPLETE BLOOD COUNT AND DIFFERENTIAL TROPONIN I SCREENING GLUCOSE HOLD BLUE TOP Data Interpretation An EKG was obtained an independently interpreted: EKG showed sinus bradycardia, NSTW, abnormal. Nonspecific T wave abnormalities. Electrical alternans. Imaging obtained was reviewed and independently interpreted: CXR pending at time of sign out. Laboratory results independently reviewed, significant for: Labs pending at time of sign out. Procedures Procedures ED Course A medical screening exam was performed. Physical exam was significant for slightly overweight. EKG showed sinus bradycardia, NSTW, abnormal. Nonspecific T wave abnormalities. Electrical alternans. Limited Cardiac Bedside Ultrasound: Findings include trace pericardial effusion with no tamponade physiology. Images obtained, reviewed, and interpreted independently by myself. Please see formal report in the [facility] Images section. Images saved in PACS. 1349 - Patient was treated with 2.5 mg of Accuneb via nebulization. The patient was signed out to Dr. Mathur with labs and CXR pending. Please refer to progress notes. Pain Management While under my care in the Emergency Department, the patient's pain was managed to an adequate level weighing risk vs. benefit of medication. Upon their departure from the Emergency Department, the patient's pain was between zero and infinity. The patient was advised to follow-up with his/her primary care provider if additional or prolonged pain management is needed. If the pain worsens, the patient is instructed to return for re-evaluation. Disposition Signed out (see progress Notes) Disposition decisions were made weighing risks and benefits of hospitalization vs. outpatient treatment, the risk for further decompensation, and the patient???s wishes. - If discharged: the patient was [...] was at risk of sudden decompensation. * Zoila Jennings RN - 10/03/2019 1315 EST Chief Complaint Patient presents with ??? Chest Pain dizziness episode at work when she stood up; Chest pain since this morning. Had CP when she went towork; Also states she has had a cold. Describes as pain across her chest. In no acute distress. Receiving phone calls in triage. documented in this encounter Plan of Treatment Upcoming Encounters Date Type Department Care Team (Late st Contact Info) Description 01/04/2025 13:00 EST Office Visit [facility] Ophthalmology - [address] [phone] Gagandeep Rome MD [address] [facility], [address] [place] [phone] 02/11/2025 13:30 EDT Telemedicine [facility] Hematology & Oncology - [address] [phone] Dana Padilla MD [address] [facility], [address] [place] [phone] Pending Results Name Type Priority Associated Diagnoses Date /Time POCT US ED CARDIAC Imaging STAT 2018 15:27 EST Scheduled Orders Name Type Priority Associated Diagnoses Orde r Schedule POCT US ED CARDIAC Imaging STAT One Ti me for 1 Occurrences starting 10/03/2019 until 10/03/2019 documented as of this encounter Procedures Procedure Name Priority Date/Time Associated Diagnosis Comments ECG REPORT - SCANNED 10/04/2019 12:09 EST COMPLETE BLOOD COUNT AND DIFFERENTIAL Routine 10/03/2019 16:14 EST XR CHEST 2 VIEWS STAT 10/03/2019 15:4 8 EST HOLD BLUE TOP STAT 10/03/2019 15:21 EST D-DIMER STAT 10/03/2019 15:21 EST TROPONIN I STAT 10/03/2019 14:46 EST SCREENING GLUCOSE STAT 10/03/2019 14: 44 EST PROFILE ED CARDIAC PACK STAT 10/03/2019 14:44 EST BUN STAT 10/03/2019 14:44 EST NT PRO BNP STAT 10/03/2019 14:44 EST MAGNESIUM STAT 10/03/2019 14:44 EST CREATININE STAT 10/03/2019 14:44 EST ELECTROLYTES STAT 10/03/2019 14:44 EST EKG 12-LEAD STAT 10/03/2019 13:21 EST documented in this encounter Results * ECG REPORT - SCANNED (10/04/2019 12:09 EST) 10/04/2019 12:0 9 EST us Scan 2 [employer] Expert PROCEDURE/MINOR SURGICAL OR DERABLES Final Result * (ABNORMAL) COMPLETE BLOOD COUNT AND DIFFERENTIAL (10/03/2019 16:14 EST) WBC 0.73(LL) 4.00 - 12.40 K/cmm 10/03/2019 16:31 [facility] RBC 3.50(L) 3.86 - 5.04 M/cmm 10/03/2019 16:31 [facility] Hemoglobin 10.9(L) 11.6 - 15.2 gm/dL 10/03/2019 16:31 [facility] HCT 33.0(L) 34.9 - 44.4 % 10/03/2019 16:31 [facility] MCV 94 81 - 98 fl 10/03/2019 16:31 [facility] MCH 31.1 26.7 - 33.3 pg 10/03/2019 16:31 [facility] MCHC 33.0 32.1 - 35.9 gm/dL 10/03/2019 16:31 [facility] RDW-CV 13.8 <14.7 % 10/03/2019 16:31 [facility] RDW-SD 47.6 <50.4 fl 10/03/2019 16:31 [facility] PLT 34(L) 141 - 377 K/cmm 10/03/2019 16:31 [facility] MPV 10.9 9.5 - 12.7 fl 10/03/2019 16:31 [facility] % Neutrophils 65.7 % 10/03/2019 16:31 [facility] % Lymphocytes 23.3 % 10/03/2019 16:31 [facility] % Monocytes 8.2 % 10/03/2019 16:31 [facility] % Eosinophils 1.4 % 10/03/2019 16:31 [facility] % Basophils 1.4 % 10/03/2019 16:31 [facility] % Immature Grans 0.0 % 10/03/20 19 16:31 [facility] Absolute Neutrophils 0.48(LL) 2.20 - 8.85 K/cmm 10/03/2019 16:31 [facility] Absolute Lymphocytes 0.17(L) 1.09 - 3.30 K/cmm 10/03/2019 16:31 [facility] Absolute Monocytes 0.06(L) 0.10 - 0.80 K/cmm 10/03/2019 16:31 [facility] Absolute Eosinophils 0.01(L) 0.03 - 0.61 K/cmm 10/03/2019 16:31 [facility] ABS Basophils 0.01 0.01 - 0.11 K/cmm 10/03/2019 16:31 [facility] Absolute Immature Grans 0.00 0.00 - 0.06 K/cmm 10/03/2019 16:31 [facility] Type of Differential: Auto 10/03/2019 16:31 [facility] Blood VENOUS BLOOD / Unknown Venipuncture / Unknown 10/03/2019 16:14 EST 10/03/2019 16:19 EST us Jaison Vale MD PhD PACKAGES & DNA PROBE ORDERA BLES Final Result [facility] [address] [place] [address] * XR CHEST 2 VIEWS (10/03/2019 15:48 EST) Anatomical Region Laterality Modality Computed Radiogr aphy 10/03/2019 16:0 3 EST Impressions 10/03/2019 16:03 EST No evidence of active disease in the chest. Narrative 10/03/2019 16:03 EST XR CHEST 2 VIEWS ??10/03/2019 2:13 PM Clinical History/Comments: chset pain COMPARISON: CT scan dated 01/03/2019 and chest x-ray dated 01/03/2019. TECHNIQUE: PA and lateral views of the chest were performed. FINDINGS: The lungs are clear. There is no pleural effusion or pneumothorax. Heart size is normal. Pulmonary vascularity appears normal. Visualized bones and superficial soft tissues are grossly unremarkable. Procedure Note Serene Bolton MD - 10/03/2019 XR CHEST 2 VIEWS 10/03/2019 2:13 PM Clinical History/Comments: chset pain COMPARISON: CT scan dated 01/03/2019 and chest x-ray dated 01/03/2019. TECHNIQUE: PA and lateral views of the chest were performed. FINDINGS: The lungs are clear. There is no pleural effusion or pneumothorax. Heartsize is normal. Pulmonary vascularity appears normal. Visualized bones and superficial soft tissues are grossly unremarkable. IMPRESSION No evidence of active disease in the chest. us Jaison Vale MD PhD IMG DIAGNOSTIC IMAGING DEMI CARDENAS Final Result * HOLD BLUE TOP (10/03/2019 15:21 EST) Hold Hold 10/03/2019 16:30 EST [facility] Blood VENOUS BLOOD / Unknown Venipuncture / Unknown 10/03/2019 15:21 EST 10/03/2019 15:26 EST us Jaison Vale MD PhD LAB INFO SERVICE AND SUPPOR T & PHONE RESULT Final Result [facility] [address] [place] [id number] * (ABNORMAL) D-DIMER (10/03/2019 15:21 EST) D-Dimer 775(H) <=230 ng/mL DDU 10/03/2019 15:50 EST [facility] Blood VENOUS BLOOD / Unknown Venipuncture / Unknown 10/03/2019 15:21 EST 10/03/2019 15:26 EST Narrative [facility] - 10/03/2019 15:50 EST Cutoff value for the exclusion of DVT and PE: 230 ng/mL D-dimer units. Any use of the age-adjusted cutoff value is a post-analytic modification of this FDA-approved test and is considered off-label use of the test result. [facility] laboratory does not have literature to support the validity of an age-adjusted cutoff for our specific assay. us Jaison Vale MD PhD HEMATOLOGY & PF4 ORDERABLES Final Result Performing Organization Address City/[facility]/ZIP Co de Phone Number [facility] [address] [place] [address] * TROPONIN I (10/03/2019 14:46 EST) Troponin I (ng/mL) <0.034 <0.034 ng/mL 10/03/2019 17:28 EST [facility] Blood VENOUS BLOOD / Unknown Venipuncture / Unknown 10/03/2019 14:46 EST 10/03/2019 14:52 EST Narrative [facility] - 10/03/2019 17:28 EST The results of this assay can be falsely lowered due to the consumption of Biotin. us Jaison Vale MD PhD CHEMISTRY & BLOOD GAS ORDER YANN Final Result [facility] [address] [place] [address] * SCREENING GLUCOSE (10/03/2019 14:44 EST) Glucose, Screening 80 70 - 100 mg/dL 10/03/2019 15:31 EST [facility] Blood VENOUS BLOOD / Unknown Venipuncture / Unknown 10/03/2019 14:44 EST 10/03/2019 14:52 EST us Jaison Vale MD PhD CHEMISTRY & BLOOD GAS ORDER YANN Final Result Performing Organization Address City/[facility] Co de Phone Number [facility] [address] [place] [address] * MAGNESIUM (10/03/2019 14:44 EST) Magnesium 1.9 1.7 - 2.8 mg/dL 10/03/2019 15:31 EST [facility] Blood VENOUS BLOOD / Unknown Venipuncture / Unknown 10/03/2019 14:44 EST 10/03/2019 14:52 EST us Jaison Vale MD PhD CHEMISTRY & BLOOD GAS ORDER YANN Final Result Performing Organization Address [facility] de Phone Number [facility] [address] [place] [address] * CREATININE (10/03/2019 14:44 EST) Creatinine 0.80 0.52 - 1.04 mg/dL 10/03/2019 15:31 EST [facility] eGFR 81 >60 mL/min/1.7 3m2 10/03/2019 15:31 EST [facility] Comment:eGFR calculated lobito coppola CKD-EPI equation for non- Americans. Multiply eGFR by 1.16 for patients. Blood VENOUS BLOOD / Unknown Venipuncture / Unknown 10/03/2019 14:44 EST 10/03/2019 14:52 EST us Jaison Vale MD PhD CHEMISTRY & BLOOD GAS ORDER YANN Final Result Performing Organization Address [facility] Co de Phone Number [facility] [address] [place] [address] * BUN (10/03/2019 14:44 EST) BUN 13 10 - 26 mg/dL 10/03/2019 15:31 EST [facility] Blood VENOUS BLOOD / Unknown Venipuncture / Unknown 10/03/2019 14:44 EST 10/03/2019 14:52 EST us Jaison Vale MD PhD CHEMISTRY & BLOOD GAS ORDER YANN Final Result Performing Organization Address [facility]/ZIP Co de Phone Number [facility] [address] [place] [address] * ELECTROLYTES (10/03/2019 14:44 EST) Sodium 139 136 - 145 mEq/L 10/03/2019 15:31 EST [facility] Potassium 3.9 3.5 - 5.0 mEq/L 10/03/2019 15:31 EST [facility] Chloride 106 96 - 110 mEq/L 10/03/2019 15:31 EST [facility] CO2 Total 27 22 - 32 mEq/L 10/03/2019 15:31 [facility] Blood VENOUS BLOOD / Unknown Venipuncture / Unknown 10/03/2019 14:44 EST 10/03/2019 14:52 EST us Jaison Vale MD PhD CHEMISTRY & BLOOD GAS ORDER YANN Final Result Performing Organization Address [facility] Co de Phone Number [facility] [address] [place] [address] * NT PRO BNP (10/03/2019 14:44 EST) NT-pro BNP 121 <125 pg/mL 10/03/2019 15:42 EST [facility] Comment: The results of this assay can be falsely lowered due to consumption of Biotin. Blood VENOUS BLOOD / Unknown Venipuncture / Unknown 10/03/2019 14:44 EST 10/03/2019 14:52 EST us Jaison Vale MD PhD CHEMISTRY & BLOOD GAS ORDER YANN Final Result Performing Organization Address [facility] Co de Phone Number [facility] [address] [place] [address] * EKG 12-LEAD (10/03/2019 13:21 EST) 10/03/2019 13:2 1 EST Narrative [facility] E[facility] - 10/04/2019 12:04 EST ?[facility] ? Test Date: ?2019-10-03 Pat Name: ? PHYLISS BOOTHE ?Department: ?? ED ? Room: ? Gender: ? Female ? 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 [id number] : ?1960 ? Requested By: TONY KIMBALL Order Number: [id number] ? Reading MD: ?? DESI VALDIVIA MD ? Measurements Intervals ?[place] ? Rate: ? 59 ? P: ?30 RI: ? 124 ?QRS: ?41 QRSD: ? 105 ?T: ?29 QT: ? 432 ? QTc: ?430 ? Interpretive Statements SINUS BRADYCARDIA WITH MARKED SINUS ARRHYTHMIA NONSPECIFIC T-WAVE ABNORMALITY I reviewed the tracing and have either agreed or edited the findings in this report. Electronically Signed On 10-04-2019 12:04:06 EST by DESI VALDIVIA MD. Procedure Note Desi Valdivia MD - 10/04/2019 [facility] Test Date: 2019-10-03 Pat Name: TARA BOOTHE Department: ED Room: Gender: Female Bridge Design Engineer: [id number] : 1960 Requested By: TONY KIMBALL Order Number: [id number] Jose MD: DESI VALDIVIA MD Measurements Intervals [place] Rate: 59 P: 30 RI: 124 QRS: 41 QRSD: 105 T: 29 QT: 432 QTc: 430 Interpretive Statements SINUS BRADYCARDIA WITH MARKED SINUS ARRHYTHMIA NONSPECIFIC T-WAVE ABNORMALITY I reviewed the tracing and have either agreed or edited the findings inthis report. Electronically Signed On 10-04-2019 12:04:06 EST by BALJEET PHIPPS. Jaison Vale MD PhD CARDIAC ECG ORDERABLES Pricila mccord Result [facility] E[facility] documented in this encounter Visit Diagnoses Diagnosis Chest pain, unspecified type- Primary Dizziness Dizziness and giddiness documented in this encounter Administered Medications Inactive Administered Medications - up to 3 most recent administrations Medication Order MAR Action Action Date Dose Rate Site albuterol (ACCUNEB) nebulizer solution 2.5 mg 2.5 mg, nebulization, NOW X1, 1 dose, On 10/03/19 at 1345, STAT Given 10/03/2019 13:49 EST 2.5 mg aluminum & magnesium hydroxide-simethicone (MYLANTA-DS) 400-400-40 mg/5 mL suspension 15 mL 15 mL, oral, NOW X1, 1 dose, On Tue10/03/19 at 1545, STAT Given 10/03/2019 15:50 EST 15 mL lidocaine (XYLOCAINE) 2 % viscous solution 15 mL 15 mL, oral, NOW X1, 1 dose, On Tue10/03/19 at 1545, STAT Given 10/03/2019 15:51 EST 15 mL documented in this encounter Active and Recently Administered Medications Times are shown in EST. Scheduled Medication Order 10/01/2019 10/02/2019 10/03/2019 albuterol (ACCUNEB) nebulizer solution 2.5 mg (COMPLETED) 2.5 mg, nebulization, NOW X1, 1 dose, On Tue10/03/19 at 1345, STAT 1349 (Given - Provid er: Catrachito Carl RT) aluminum & magnesium hydroxide-simethicone (MYLANTA-DS) 400-400-40 mg/5 mL suspension 15 mL (COMPLETED)(Linked Group 1) 15 mL, oral, NOW X1, 1 dose, On Tue10/03/19 at 1545, STAT 1550 (Given - Provid er: Myriam Haas RN) lidocaine (XYLOCAINE) 2 % viscous solution 15 mL (COMPLETED)(Linked Group 1) 15 mL, oral, NOW X1, 1 dose, On Tue10/03/19 at 1545, STAT 1551 (Given - Provid er: Myriam Haas RN) Linked Groups Order Group 1: lidocaine (XYLOCAINE) 2 % viscous solution 15 mL (COMPLETED)Jump to med 15 mL, oral, NOW X1, 1 dose, On Tue10/03/19 at 1545, STAT And aluminum & magnesium hydroxide-simethicone (MYLANTA-DS) 400-400-40 mg/5 mL suspension 15 mL (COMPLETED)Jump to med 15 mL, oral, NOW X1, 1 dose, On Tue10/03/19 at 1545, STAT documented in this encounter Care Teams Supervisor Paper Machine Relationship Specialty Start Date End Date Alma Farfan MD PCP - General 03/14/19 05/21/20 documented as of this encounter
--- OUTSIDE RECORDS SUMMARY | 2024-11-22 17:24 | XMS_ITS | Encounter Summary ---
Author Organization [facility] Address [address] [place] [address] Care Team Providers Care Zmt Operator Name Role Phone Noreen León MD Primary Care Provider [phone] Reason for Visit * Reason Onset Date Comments Appointment Related 08/27/2019 Encounter Details Date Type Department Care Team (Late st Contact Info) Description 08/27/2019 Telephone [facility] Rehabilitation Therapy - Medical Office Building [address] [place] [address] Therapy, Physical Appointment Related Social History [...] Inderjit Radford RN documented in this encounter Miscellaneous Notes * Telephone Encounter - Fanta Giordano - 08/27/2019 1334 EDT [facility] - MEDICAL OFFICE BUILDING [address] [place] [id number] Telephone Intake Information for Scheduling NEW Patients for Therapy Script/referral: External scanned into Epic Referral date: 08/27/19 Referring Provider: noreen león md Diagnosis: R.KNEE PAIN Primary Insurance: Medicare A/B Secondary Insurance: [place] Medicaid standard plan (FSC-101)- Extension process must be followed for additional visits beyond yearly allowable If Medicare: Have you been seen in therapy since November first of this year? No Are you receiving any home health or VNA services? No Notes: MAILED PAPERWORK TO PATIENT. PATIENT NEEDS AFTER 1 DUE TO WORK SCHEDULE. Fanta Giordano 08/27/2019 documented in this encounter Plan of Treatment Upcoming Encounters Date Type Department Care Team (Late st Contact Info) Description 01/04/2025 13:00 EST Office Visit [facility] Ophthalmology - [facility] [address] [place] [address] Gagandeep Rome MD [address] [facility], Level [address] [place] [address] 02/11/2025 13:30 EDT Telemedicine [email or web address] Cancer Center Hematology & Oncology - [address] [phone] Dana Padilla MD [address] [facility], [address] [place] [phone] documented as of this encounter Visit Diagnoses Not on filedocumented in this encounter Care Teams Zmt Operator Relationship Specialty Start Date End Date Noreen León MD PCP - General 03/14/19 05/21/20 documented as of this encounter
--- OUTSIDE RECORDS SUMMARY | 2024-11-22 17:24 | XMS_ITS | Encounter Summary ---
Author Organization [facility] Address [address] [place] [address] Care Team Providers Care Treadle Cut Off Saw Operator Name Role Phone Alma Farfan MD Primary Care Provider [phone] Encounter Details Date Type Department Care Team (Late st Contact Info) Description 12/04/2019 Orders Only [facility] Hematology & Oncology - [facility] [address] [place] [address] Starr Paige MD [address] [place] [phone] Social History Tobacco Use Types Packs/Day [...] Office Visit [facility] Ophthalmology [address] [address] Gagandeep Rome MD [address] [place] [address], [facility] [address] [place] [phone] 02/11/2025 13:30 EDT Telemedicine [facility] Hematology & Oncology [address] [phone] Dana Padilla MD [address] [place] [address], [address] [place] [phone] documented as of this encounter Visit Diagnoses Not on filedocumented in this encounter Care Teams Treadle Cut Off Saw Operator Relationship Specialty Start Date End Date Alma Farfan MD PCP - General 03/14/19 05/21/20 documented as of this encounter
--- OUTSIDE RECORDS SUMMARY | 2024-11-22 17:24 | XMS_ITS | Encounter Summary ---
Author Organization [facility] Address [address] [place] [address] Care Team Providers Care Hand Brim Ironer Name Role Phone Alma Farfan MD Primary Care Provider [phone] Encounter Details Date Type Department Care Team (Latest Contact Info) Description 08/29/2019 9:50 EDT - 08/29/2019 23:59 EDT Hospital Encounter [facility] [address] [place] [address] Alma Farfan MD [address] [place] [phone] Discharge Disposition: Auto Discharge Social History Tobacco [...] Date of Assessment Author No 08/24/2017 23:43 EDT Inderjit Queen RN * Are you blind or do [...] D61.818 Other pancytopenia-D61.818[ICD-10-CM] documented in this encounter Medications at Time [...] Disposition Code Departure Means Destination Auto Discharge Home documented in this encounter Plan of Treatment Upcoming Encounters Date Type Department Care Team (Late st Contact Info) Description 01/04/2025 13:00 EST Office Visit [facility] Ophthalmology - [address] [phone] Gagandeep Rome MD [address] [place] [address], [facility] [address] [place] [address] 02/11/2025 13:30 EDT Telemedicine [facility] Hematology & Oncology - [address] [address] Dana Padilla MD [address] [place] [address], [address] [place] [phone] documented as of this encounter Visit Diagnoses Not on filedocumented in this encounter Care Teams Hand Brim Ironer Relationship Specialty Start Date End Date Alma Farfan MD PCP - General 03/14/19 05/21/20 documented as of this encounter
--- OUTSIDE RECORDS SUMMARY | 2024-11-22 17:24 | XMS_ITS | Encounter Summary ---
Author Organization [facility] Address [address] [place] [address] Care Team Providers Care Provisioning Analyst Name Role Phone Alam Farfan MD Primary Care Provider [phone] Encounter Details Date Type Department Care Team (Late st Contact Info) Description 07/13/2019 Phlebotomy Only [facility] [address] [place] [address] Housekeeping Worker, Outpatient Pancytopenia ([facility]); Anemia, unspecified; Thrombocytopenia ([facility]); Thrombocytopenia, unspecified ([facility]) Social History Tobacco Use Types Packs/Day Years [...] Inderjit Radford RN documented in this encounter Plan of Treatment Upcoming Encounters Date Type Department Care Team (Late st Contact Info) Description 01/04/2025 13:00 EST Office Visit [facility] Ophthalmology - [address] [phone] Gagandeep Rome MD [address] [place] [address] [address] [place] [phone] 02/11/2025 13:30 EDT Telemedicine [facility] Hematology & Oncology [address] [address] Dana Padilla MD [address] [place] [address], [address] [place] [phone] documented as of this encounter Procedures Procedure Name Priority Date/Time Associated Diagnosis Comments IBC Routine 07/13/2019 16:38 EDT Pancytopenia (HCC-CMS) Anemia, unspecified Thrombocytopenia, unspecified (HCC-CMS) SED RATE STAT 07/13/2019 16:38 EDT Pancytopenia (HCC-CMS) Anemia, unspecified Thrombocytopenia (HCC-CMS) RETICULOCYTE COUNT STAT 07/13/2019 16 :38 EDT Pancytopenia (HCC-CMS) Anemia, unspecified Thrombocytopenia (HCC-CMS) COMPLETE BLOOD COUNT AND DIFFERENTIAL STAT 07/13/2019 16:38 EDT Pancytopenia (HCC-CMS) Anemia, unspecified Thrombocytopenia (HCC-CMS) C REACTIVE PROTEIN Routine 07/13/2019 16 :38 EDT Pancytopenia (HCC-CMS) Anemia, unspecified Thrombocytopenia, unspecified (HCC-CMS) IRON Routine 07/13/2019 16:38 EDT Pancytopenia (HCC-CMS) Anemia, unspecified Thrombocytopenia, unspecified (HCC-CMS) FERRITIN Routine 07/13/2019 16:38 EDT Pancytopenia (HCC-CMS) Anemia, unspecified Thrombocytopenia, unspecified (HCC-CMS) COMPREHENSIVE METABOLIC PANEL (CMP) Routine 07/13/2019 16:38 EDT Pancytopenia (HCC-CMS) Anemia, unspecified Thrombocytopenia, unspecified (HCC-CMS) documented in this encounter Results * C REACTIVE PROTEIN (07/13/2019 16:38 EDT) Pathologist [facility] C Reactive Protein <7.0 <10.0 mg/L 07/13/2019 18:25 EDT [facility] Blood specimen (specimen) BLOOD SPECIMEN / Unknown 07/13/2019 16:38 EDT 07/13/2019 17:50 EDT us Dom Zeng MD CHEMISTRY & BLOOD GAS ORDERABLES Final Result [facility] [address] [place] [address] * COMPREHENSIVE METABOLIC PANEL (CMP) (07/13/2019 16:38 EDT) Pathologist [facility] Potassium 4.1 3.5 - 5.0 mEq/L 07/13/2019 18:25 EDT [facility] Sodium 141 136 - 145 mEq/L 07/13/2019 18:25 [facility] Chloride 105 96 - 110 mEq/L 07/13/2019 18:25 [facility] CO2 28 22 - 32 mEq/L 07/13/2019 18:25 [facility] Total Alkaline Phosphatase 107 38 - 126 U/L 07/13/2019 18:25 [facility] Bilirubin, Total 1.1 <1.4 mg/dl 07/13/20 18:25 [facility] AST 22 15 - 46 U/L 07/13/2019 18:25 [facility] ALT 22 <53 U/L 07/13/2019 18:25 [facility] Albumin 4.0 3.4 - 4.9 g/dl 07/13/2019 18:25 [facility] Total Protein 7.0 6.3 - 8.2 g/dl 07/13/2019 18:25 [facility] Creatinine 0.77 0.52 - 1.04 mg/dl 07/13/2019 18:25 [facility] GFR, Calculated 85 >60 ml/min/1.7 3m2 07/13/2019 18:25 [facility] Comment: eGFR calculated using CKD-EPI equation for non Americans. Multiply eGFR by 1.16 for Americans. BUN 10 10 - 26 mg/dl 07/13/2019 18:25 [facility] Calcium 8.8 8.5 - 10.5 mg/dl 07/13/2019 18:25 [facility] Calculated Calcium 8.8 8.5 - 10.5 mg/dl 07/13/2019 18:25 [facility] Glucose, Serum 87 70 - 100 mg/dl 07/13/2019 18:25 [facility] Fasting? No 07/13/2019 16:28 [facility] Blood specimen (specimen) BLOOD SPECIMEN / Unknown 07/13/2019 16:38 EDT 07/13/2019 17:50 EDT Dom Zeng MD CHEMISTRY & BLOOD GAS ORDERABLES Final Result [facility] [address] [place] [address] * FERRITIN (07/13/2019 16:38 EDT) Ferritin 238 10 - 291 ng/ml 07/16/2019 9:15 EDT [facility] Blood specimen (specimen) BLOOD SPECIMEN / Unknown 07/13/2019 16:38 EDT 07/13/2019 17:50 EDT us Dom Zeng MD CHEMISTRY & BLOOD GAS ORDERABLES Final Result Performing Organization Address [facility]/ZIP Co de Phone Number [facility] [address] [place] [address] * IRON (07/13/2019 16:38 EDT) Iron 85 37 - 170 ug/dl 07/13/2019 18:25 EDT [facility] Blood specimen (specimen) BLOOD SPECIMEN / Unknown 07/13/2019 16:38 EDT 07/13/2019 17:50 EDT us Dom Zeng MD CHEMISTRY & BLOOD GAS ORDERABLES Final Result Performing Organization Address City/[facility]/ZIP Co de Phone Number [facility] [address] [place] [address] * IBC (07/13/2019 16:38 EDT) TIBC 270 265 - 497 ug/dl 07/13/2019 18:32 EDT [facility] Blood specimen (specimen) BLOOD SPECIMEN / Unknown 07/13/2019 16:38 EDT 07/13/2019 17:50 EDT us Dom Zeng MD CHEMISTRY & BLOOD GAS ORDERABLES Final Result [facility] [address] [place] [address] * (ABNORMAL) COMPLETE BLOOD COUNT AND DIFFERENTIAL (07/13/2019 16:38 EDT) WBC 1.60(L) 4.0 - 12.4 K/cmm 07/13/2019 18:04 [facility] RBC 4.08 3.86 - 5.04 M/cmm 07/13/2019 18:04 [facility] Hemoglobin 12.9 11.6 - 15.2 gm/dl 07/13/2019 18:04 [facility] HCT 38.1 34.9 - 44.4 % 07/13/2019 18:04 [facility] MCV 93 81 - 98 fl 07/13/2019 18:04 [facility] MCH 31.6 26.7 - 33.3 pg 07/13/2019 18:04 [facility] MCHC 33.9 32.1 - 35.9 gm/dl 07/13/2019 18:04 [facility] RDW-CV 14.9(H) <14.7 % 07/13/2019 18:04 [facility] RDW-SD 51.3(H) <50.4 fl 07/13/2019 18:04 [facility] PLT 38(L) 141 - 377 K/cmm 07/13/2019 18:04 [facility] MPV 10.2 9.5 - 12.7 fl 07/13/2019 18:04 [facility] Neutrophils 80.0 % 07/13/2019 18:48 [facility] Lymphocytes 14.8 % 07/13/2019 18:48 [facility] Monocytes 5.2 % 07/13/2019 18:48 [facility] ABS Neutrophils 1.28(L) 2.20 - 8.85 K/cmm 07/13/2019 18:48 [facility] ABS Lymphs 0.24(L) 1.09 - 3.30 K/cmm 07/13/2019 18:48 [facility] ABS Monocytes 0.08(L) 0.1 - 0.8 K/cmm 07/13/2019 18:48 EDT [facility] Type of Diff: Manual 07/13/2019 18:48 EDT [facility] Blood specimen (specimen) BLOOD SPECIMEN / Unknown 07/13/2019 16:38 EDT 07/13/2019 17:50 EDT us Dom Zeng MD PACKAGES & DNA PRO BE ORDERABLES Final Result Performing Organization Address City/[facility] Co de Phone Number [facility] [address] [place] [address] * RETICULOCYTE COUNT (07/13/2019 16:38 EDT) Retic Ct (Uncorrected) 1.1 0.5 - 2.5 % 07/13/2019 18:04 EDT [facility] Blood specimen (specimen) BLOOD SPECIMEN / Unknown 07/13/2019 16:38 EDT 07/13/2019 17:50 EDT us Dom Zeng MD HEMATOLOGY & PF4 O RDERABLES Final Result Performing Organization Address [facility] Co de Phone Number [facility] [address] [place] [address] * SED. RATE:WESTERGREN (07/13/2019 16:38 EDT) Sed. Rate Westergren 4 0 - 30 mm/hr 07/13/2019 17:59 EDT [facility] Blood specimen (specimen) BLOOD SPECIMEN / Unknown 07/13/2019 16:38 EDT 07/13/2019 17:50 EDT us Dom Zeng MD HEMATOLOGY & PF4 O RDERABLES Final Result Performing Organization Address [facility] Co de Phone Number [facility] [address] [place] [address] documented in this encounter Visit Diagnoses Diagnosis Pancytopenia (HCC-CMS) Other pancytopenia Anemia, unspecified Thrombocytopenia (HCC-CMS) Thrombocytopenia, unspecified Thrombocytopenia, unspecified ([facility]) Thrombocytopenia, unspecified documented in this encounter Care Teams Provisioning Analyst Relationship Specialty Start Date End Date Alma Farfan MD PCP - General 03/14/19 05/21/20 documented as of this encounter
--- OUTSIDE RECORDS SUMMARY | 2024-11-22 17:24 | XMS_ITS | Encounter Summary ---
Author Organization [facility] Address [address] [place] [address] Care Team Providers Care Breakfast Attendant Name Role Phone Alma Farfan MD Primary Care Provider [phone] Encounter Details Date Type Department Care Team (Late st Contact Info) Description 08/29/2019 Phlebotomy Only [facility] [address] [place] [address] Health Insurance Adjuster, Outpatient Pancytopenia ([facility]-CMS) (Primary Dx) Social History Tobacco Use Types [...] Visit [facility] Ophthalmology - [address] [phone] Gagandeep Rome MD [address] [place] [address] 5 [place] [phone] 02/11/2025 13:30 EDT Telemedicine [facility] Hematology & Oncology [address] [phone] Dana Padilla MD [address] [place] [address] 2 [place] [address] documented as of this encounter Procedures Procedure Name Priority Date/Time Associated Diagnosis Comments COMPREHENSIVE METABOLIC PANEL (ONCOLOGY USE ONLY-INC MG) STAT 08/29/2019 10:04 EDT Pancytopenia ([facility]-CMS) COMPLETE BLOOD COUNT AND DIFFERENTIAL STAT 08/29/2019 10:04 EDT Pancytopenia (HCC-CMS) documented in this encounter Results * (ABNORMAL) COMPLETE BLOOD COUNT AND DIFFERENTIAL (08/29/2019 10:04 EDT) WBC 1.12(L) 4.0 - 12.4 K/cmm 08/29/2019 10:23 [facility] RBC 3.77(L) 3.86 - 5.04 M/cmm 08/29/2019 10:23 [facility] Hemoglobin 11.7 11.6 - 15.2 gm/dl 08/29/2019 10:23 [facility] HCT 36.3 34.9 - 44.4 % 08/29/2019 10:23 [facility] MCV 96 81 - 98 fl 08/29/2019 10:23 [facility] MCH 31.0 26.7 - 33.3 pg 08/29/2019 10:23 [facility] MCHC 32.2 32.1 - 35.9 gm/dl 08/29/2019 10:23 [facility] RDW-CV 13.3 <14.7 % 08/29/2019 10:23 [facility] RDW-SD 47.2 <50.4 fl 08/29/2019 10:23 [facility] PLT 36(L) 141 - 377 K/cmm 08/29/2019 10:23 [facility] MPV 10.6 9.5 - 12.7 fl 08/29/2019 10:23 [facility] Neutrophils 73.9 % 08/29/2019 10:58 [facility] Lymphocytes 12.2 % 08/29/2019 10:58 [facility] Monocytes 11.3 % 08/29/2019 10:58 [facility] Eosinophils 0.9 % 08/29/2019 10:58 [facility] Basophils 1.7 % 08/29/2019 10:58 [facility] ABS Neutrophils 0.83(L) 2.20 - 8.85 K/cmm 08/29/2019 10:58 [facility] ABS Lymphs 0.14(L) 1.09 - 3.30 K/cmm 08/29/2019 10:58 [facility] ABS Monocytes 0.13 0.1 - 0.8 K/cmm 08/29/2019 10:58 [facility] ABS Eosinophils 0.01(L) 0.03 - 0.61 K/cmm 08/29/2019 10:58 [facility] ABS Basophils 0.02 0.01 - 0.11 K/cmm 08/29/2019 10:58 T [facility] Type of Diff: Manual 08/29/2019 10:58 [facility] Blood specimen (specimen) BLOOD SPECIMEN / Unknown 08/29/2019 10:04 EDT 08/29/2019 10:07 EDT us Starr Paige MD PACKAGES & DNA PROBE ORDERA BLES Final Result [facility] [address] [place] [address] * COMPREHENSIVE METABOLIC PANEL (ONCOLOGY USE ONLY-INC MG) (08/29/2019 10:04 EDT) Potassium 4.1 3.5 - 5.0 mEq/L 08/29/2019 10:31 [facility] Sodium 141 136 - 145 mEq/L 08/29/2019 10:31 [facility] Chloride 104 96 - 110 mEq/L 08/29/2019 10:31 [facility] CO2 30 22 - 32 mEq/L 08/29/2019 10:31 [facility] Total Alkaline Phosphatase 91 38 - 126 U/L 08/29/2019 10:31 [facility] Bilirubin, Total 0.8 <1.4 mg/dl 08/29/20 19 10:31 [facility] AST 24 15 - 46 U/L 08/29/2019 10:31 [facility] ALT 24 <34 U/L 08/29/2019 10:31 [facility] Albumin 3.9 3.4 - 4.9 g/dl 08/29/2019 10:31 [facility] Total Protein 6.6 6.3 - 8.2 g/dl 08/29/2019 10:31 [facility] Creatinine 0.82 0.52 - 1.04 mg/dl 08/29/2019 10:31 [facility] GFR, Calculated 79 >60 ml/min/1.7 3m2 08/29/2019 10:31 [facility] Comment: eGFR calculated using CKD-EPI equation for non Americans. Multiply eGFR by 1.16 for Americans. BUN 13 10 - 26 mg/dl 08/29/2019 10:31 T [facility] Calcium 8.8 8.5 - 10.5 mg/dl 08/29/2019 10:31 [facility] Calculated Calcium 8.9 8.5 - 10.5 mg/dl 08/29/2019 10:31 [facility] Glucose, Serum 71 70 - 100 mg/dl 08/29/2019 10:31 [facility] Magnesium 1.9 1.7 - 2.8 mg/dl 08/29/2019 10:31 [facility] Blood specimen (specimen) BLOOD SPECIMEN / Unknown 08/29/2019 10:04 EDT 08/29/2019 10:07 EDT us Starr Paige MD CHEMISTRY & BLOOD GAS ORDER YANN Final Result [facility] [address] [place] [address] documented in this encounter Visit Diagnoses Diagnosis Pancytopenia (HCC-CMS)- Primary Other pancytopenia documented in this encounter Care Teams Breakfast Attendant Relationship Specialty Start Date End Date Alma Farfan MD PCP - General 03/14/19 05/21/20 documented as of this encounter
--- OUTSIDE RECORDS SUMMARY | 2024-11-22 17:24 | XMS_ITS | Encounter Summary ---
Author Organization [facility] Address [address] [place] [address] Care Team Providers Care Client Evaluator Name Role Phone Alma Farfan MD Primary Care Provider [phone] Reason for Visit * Reason Onset Date Comments No Show 07/02/2019 Encounter Details Date Type Department Care Team (Late st Contact Info) Description 07/02/2019 Telephone [facility] Hematology & Oncology - [place] [address] [place], [place] [phone] Starr Paige MD [address] [place] [phone] No Show Social History Tobacco Use Types Packs/Day Years [...] encounter Miscellaneous Notes * Telephone Encounter - Pebbles Osorio - 07/03/2019 1127 EDT Spoke to patient and scheduled her for 08/29 at 10AM and put her on a cancellation list * Telephone Encounter - Pebbles Osorio - 07/02/2019 1313 EDT Called patient regarding rescheduling no show. Patient said she had very bad labs - I told her I would reach out to our nursing staff to see what our next steps should be regarding her appointment. documented in this encounter Plan of Treatment Upcoming Encounters Date Type Department Care Team (Late st Contact Info) Description 01/04/2025 13:00 EST Office Visit [facility] Ophthalmology - [address] [phone] Gagandeep Rome MD [address] [place] [address], [address] [place] [phone] 02/11/2025 13:30 EDT Telemedicine [facility] Hematology & Oncology - [address] [phone] Dana Padilla MD [address] [facility], [address] [place] [phone] documented as of this encounter Visit Diagnoses Not on filedocumented in this encounter Care Teams Client Evaluator Relationship Specialty Start Date End Date Alma Farfan MD PCP - General 03/14/19 05/21/20 documented as of this encounter
--- OUTSIDE RECORDS SUMMARY | 2024-11-22 17:24 | XMS_ITS | Encounter Summary ---
Author Organization [facility] Address [address] [place] [address] Care Team Providers Care Field Operations Coordinator Name Role Phone Alma Farfan MD Primary Care Provider [phone] Emigdio Veronica MD Primary Care Provider + Starr Paige MD Unavailable [phone] Dana Padilla MD Unavailable Izabella Snowden [facility] Unavailable [phone] None, Provider Primary Care Provider Unavailabl e Gabriel Gandara Primary Care Provider Mirna Guerrero Primary Care Provider + Encounter Details Date Type Department Care Team (Late st Contact Info) Description 09/10/2019 Hospital Encounter [facility] [place] [facility] [place] [address] [place] [address] Love Jenkins, PT [address] [place], [place] [phone] Social History Tobacco Use Types Packs/Day Years [...] 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 Not [...] Office Visit [facility] Ophthalmology - [address] [phone] Gagandeep Rome MD [address] [place] [address], [facility] [address] [place] [phone] 02/11/2025 13:30 EDT Telemedicine [facility] Hematology & Oncology [address] [address] Dana Padilla MD [address] [place] [address], [facility] [address] [place] [phone] documented as of this encounter Visit Diagnoses Not on filedocumented in this encounter Orders Medications Ordered That Luc ht Not Have Been Administered Count Last Ordered Date First Ordered Date albuterol (ACCUNEB) 2.5 mg / 3 mL (0.083 %) nebulizer solution 1 10/03/2019 documented in this encounter Additional Health Concerns [...] documented as of this encounter Care Teams Field Operations Coordinator Relationship Specialty Start Date End Date Alma Farfan MD PCP - General 03/14/19 05/21/20 Emigdio Veronica MD [address] [place] [phone] PCP - General Internal Medicine - Primary Care 05/22/20 02/21/24 None, Provider PCP - General 02/24/24 03/18/24 Gabriel Gandara PA PCP - General 03/19/24 09/11/24 Mirna Guerrero PA [address] [place] [address] PCP - General 09/12/24 Starr Paige MD [address] [place] [phone] Hematology 10/08/21 06/09/22 Dana Padilla MD 111 [facility], Level [address] [place] [address] Hematology 01/13/22 06/09/22 Izabella Snowden, [facility] 1 [facility], [address]rd [place] [phone] Receiving Distribution Station Operator 02/21/23 05/03/24 documented as of this encounter
--- OUTSIDE RECORDS SUMMARY | 2024-11-22 17:24 | XMS_ITS | Encounter Summary ---
Author Organization [facility] Address [address] [place] [address] Care Team Providers Care Head Bander And Liner Operator Name Role Phone Alma Farfan MD Primary Care Provider [phone] Encounter Details Date Type Department Care Team (Late st Contact Info) Description 07/10/2019 Orders Only Non [facility] Ancillary Services Dom Zeng MD [address] [place] [address] Pancytopenia (HCC-CMS) (Primary Dx); Anemia, unspecified; Thrombocytopenia, unspecified (HCC-CMS) Social History Tobacco Use Types Packs/Day [...] of Assessment Author No 08/24/2017 23:43 Inderjit Radford, RN * Are you blind or do [...] 13:00 EST Office Visit [facility] Ophthalmology [address] [phone] Gagandeep Rome MD [address] [place] [address] 5 [place] [phone] 02/11/2025 13:30 EDT Telemedicine [facility] Hematology & Oncology [address] [phone] Dana Padilla MD [address] [place] [address], [address] [place] [address] documented as of this encounter Results * IBC (07/13/2019 16:38 EDT) TIBC 270 265 - 497 ug/dl 07/13/2019 18:[address] [facility] Blood specimen (specimen) BLOOD SPECIMEN / Unknown 07/13/2019 16:38 EDT 07/13/2019 17:50 EDT Dom Zeng MD CHEMISTRY & BLOOD GAS ORDERABLES Final Result Performing Organization Address City/[facility]/ZIP Co de Phone Number [facility] [address] [place] [address] * IRON (07/13/2019 16:38 EDT) Iron 85 37 - 170 ug/dl 07/13/2019 18:[address] [facility] Blood specimen (specimen) BLOOD SPECIMEN / Unknown 07/13/2019 16:38 EDT 07/13/2019 17:50 EDT us Dom Zeng MD CHEMISTRY & BLOOD GAS ORDERABLES Final Result Performing Organization Address [facility] Co de Phone Number [facility] [address] [place] [address] * FERRITIN (07/13/2019 16:38 EDT) Ferritin 238 10 - 291 ng/ml 07/16/2019 9:[address] [facility] Blood specimen (specimen) BLOOD SPECIMEN / Unknown 07/13/2019 16:38 EDT 07/13/2019 17:50 EDT Dom Zeng MD CHEMISTRY & BLOOD GAS ORDERABLES Final Result Performing Organization Address [facility]/ZIP Co de Phone Number [facility] [address] [place] [address] * COMPREHENSIVE METABOLIC PANEL (CMP) (07/13/2019 16:38 EDT) Potassium 4.1 3.5 - 5.0 mEq/L 07/13/2019 18:[address] [facility] Sodium 141 136 - 145 mEq/L 07/13/2019 18:[address] [facility] Chloride 105 96 - 110 mEq/L 07/13/2019 18:[address] [facility] CO2 28 22 - 32 mEq/L 07/13/2019 18:[address] [facility] Total Alkaline Phosphatase 107 38 - 126 U/L 07/13/2019 18:25 [facility] Bilirubin, Total 1.1 <1.4 mg/dl 07/13/20 18:25 [facility] AST 22 15 - 46 U/L 07/13/2019 18:25 [facility] ALT 22 <53 U/L 07/13/2019 18:25 [facility] Albumin 4.0 3.4 - 4.9 g/dl 07/13/2019 18:25 [facility] Total Protein 7.0 6.3 - 8.2 g/dl 07/13/2019 18:25 [facility] Creatinine 0.77 0.52 - 1.04 mg/dl 07/13/2019 18:25 [facility] GFR, Calculated 85 >60 ml/min/1.7 3m2 07/13/2019 18:25 [facility] Comment: eGFR calculated using CKD-EPI equation for non Americans. Multiply eGFR by 1.16 for Americans. BUN 10 10 - 26 mg/dl 07/13/2019 18:25 [facility] Calcium 8.8 8.5 - 10.5 mg/dl 07/13/2019 18:25 [facility] Calculated Calcium 8.8 8.5 - 10.5 mg/dl 07/13/2019 18:25 [facility] Glucose, Serum 87 70 - 100 mg/dl 07/13/2019 18:25 [facility] Fasting? No 07/13/2019 16:28 [facility] Blood specimen (specimen) BLOOD SPECIMEN / Unknown 07/13/2019 16:38 EDT 07/13/2019 17:50 EDT us Dom Zeng MD CHEMISTRY & BLOOD GAS ORDERABLES Final Result [facility] [address] [place] [address] * C REACTIVE PROTEIN (07/13/2019 16:38 EDT) C Reactive Protein <7.0 <10.0 mg/L 07/13/2019 18:[address] [facility] Blood specimen (specimen) BLOOD SPECIMEN / Unknown 07/13/2019 16:38 EDT 07/13/2019 17:50 EDT us Dom Zeng MD CHEMISTRY & BLOOD GAS ORDERABLES Final Result [facility] [address] [place] [address] documented in this encounter Visit Diagnoses Diagnosis Pancytopenia (HCC-CMS)- Primary Other pancytopenia Anemia, unspecified Thrombocytopenia, unspecified (HCC-CMS) Thrombocytopenia, unspecified documented in this encounter Care Teams Head Bander And Liner Operator Relationship Specialty Start Date End Date Alma Farfan MD PCP - General 03/14/19 05/21/20 documented as of this encounter
--- OUTSIDE RECORDS SUMMARY | 2024-11-22 17:24 | XMS_ITS | Encounter Summary ---
Author Organization [facility] Address [address] [place] [address] Care Team Providers Care Senior Principal Process Engineer Name Role Phone Alma Farfan MD Primary Care Provider [phone] Encounter Details Date Type Department Care Team (Late st Contact Info) Description 07/10/2019 Orders Only Non [facility] Ancillary Services Dom Zeng MD [address] [place] [address] Pancytopenia ([facility]-CMS) (Primary Dx); Anemia, unspecified; Thrombocytopenia ([facility]-CMS) Social History Tobacco Use Types Packs/Day Years [...] Date of Assessment Author Yes 08/24/2017 23:43 EDT Queen, Inderjit, RN * Do you have serious difficulty [...] [facility] Ophthalmology [address] [phone] Gagandeep Rome MD [address] [place] [address], [facility] 5 [place] [phone] 02/11/2025 13:30 EDT Telemedicine [facility] Hematology & Oncology [address] [phone] Dana Padilla MD [address] [place] [address], [facility] 2 [place] [phone] documented as of this encounter Results * SED. RATE:ALBERTO (07/13/2019 16:38 EDT) Sed. Rate Alberto 4 0 - 30 mm/hr 07/13/2019 17:59 EDT [facility] Blood specimen (specimen) BLOOD SPECIMEN / Unknown 07/13/2019 16:38 EDT 07/13/2019 17:50 EDT us Dom Zeng MD HEMATOLOGY & PF4 O RDERABLES Final Result Performing Organization Address City/[facility]/ZIP Co de Phone Number [facility] [address] [place] [address] * RETICULOCYTE COUNT (07/13/2019 16:38 EDT) Retic Ct (Uncorrected) 1.1 0.5 - 2.5 % 07/13/2019 18:04 [facility] Blood specimen (specimen) BLOOD SPECIMEN / Unknown 07/13/2019 16:38 EDT 07/13/2019 17:50 EDT Dom Zeng MD HEMATOLOGY & PF4 O RDERABLES Final Result Performing Organization Address [facility] Co de Phone Number [facility] [address] [place] [address] * (ABNORMAL) COMPLETE BLOOD COUNT AND DIFFERENTIAL (07/13/2019 16:38 EDT) WBC 1.60(L) 4.0 - 12.4 K/cmm 07/13/2019 18:04 [facility] RBC 4.08 3.86 - 5.04 M/cmm 07/13/2019 18:04 [facility] Hemoglobin 12.9 11.6 - 15.2 gm/dl 07/13/2019 18:04 [facility] HCT 38.1 34.9 - 44.4 % 07/13/2019 18:04 [facility] MCV 93 81 - 98 fl 07/13/2019 18:04 [facility] MCH 31.6 26.7 - 33.3 pg 07/13/2019 18:04 [facility] MCHC 33.9 32.1 - 35.9 gm/dl 07/13/2019 18:04 [facility] RDW-CV 14.9(H) <14.7 % 07/13/2019 18:04 [facility] RDW-SD 51.3(H) <50.4 fl 07/13/2019 18:04 [facility] PLT 38(L) 141 - 377 K/cmm 07/13/2019 18:04 [facility] MPV 10.2 9.5 - 12.7 fl 07/13/2019 18:04 [facility] Neutrophils 80.0 % 07/13/2019 18:48 [facility] Lymphocytes 14.8 % 07/13/2019 18:48 [facility] Monocytes 5.2 % 07/13/2019 18:48 [facility] ABS Neutrophils 1.28(L) 2.20 - 8.85 K/cmm 07/13/2019 18:48 [facility] ABS Lymphs 0.24(L) 1.09 - 3.30 K/cmm 07/13/2019 18:48 [facility] ABS Monocytes 0.08(L) 0.1 - 0.8 K/cmm 07/13/2019 18:48 [facility] Type of Diff: Manual 07/13/2019 18:48 [facility] Blood specimen (specimen) BLOOD SPECIMEN / Unknown 07/13/2019 16:38 EDT 07/13/2019 17:50 EDT us Dom Zeng MD PACKAGES & DNA PRO BE ORDERABLES Final Result [facility] [address] [place] [address] documented in this encounter Visit Diagnoses Diagnosis Pancytopenia (HCC-CMS)- Primary Other pancytopenia Anemia, unspecified Thrombocytopenia (HCC-CMS) Thrombocytopenia, unspecified documented in this encounter Care Teams Senior Principal Process Engineer Relationship Specialty Start Date End Date Alma Farfan MD PCP - General 03/14/19 05/21/20 documented as of this encounter
--- OUTSIDE RECORDS SUMMARY | 2024-11-22 17:24 | XMS_ITS | Encounter Summary ---
Author Organization [facility] Address [address] [place] [address] Care Team Providers Care Demand Planning Analyst Name Role Phone Alma Farfan MD Primary Care Provider [phone] Reason for Visit * Reason Comments Knee Pain Right knee injury do i 08/08/19- TKA dos 2008 * Consult (Routine) - Closed Specialty Diagnoses / Procedures Referred By Contkanchan t Referred To Contact Orthopedic Surgery Diagnoses Sprain of right knee, unspecified ligament, initial encounter Elle Nino NP Phone: tel: fax: [facility] [place] [address] [place] [address] Phone: tel: fax: Referral ID Status Reason Start Date Expiration Date V isits Requested Visits Authorized [id number] Closed Specialty Services Required 08/17/2019 1 1 Encounter Details Date Type Department Care Team (Late st Contact Info) Description 08/23/2019 14:30 EDT Office Visit [facility] [place] [address] Tatyana Washington NP [address] [place] [address] History of knee replacement, total, right (Primary Dx); Sprain of medial collateral ligament of right knee, initial encounter Discharge Disposition: Auto Discharge Social History Tobacco [...] documented in this encounter Discharge Diagnoses Diagnosis Z96.651 Presence of right artificial knee joint-Z96.651[ICD-10-CM] S83.411A Sprain of medial collateral ligament of right knee, initial encounter-S83.411A[ICD-10-CM] documented in this encounter Discharge Disposition Disposition Code Departure Means Destination Auto Discharge documented in this encounter Progress Notes * Tatyana Washington APRN - 08/23/2019 1430 EDT New knee pain visit; Chief Complaint Patient presents with ??? Knee Pain Right knee injury doi 08/08/19- TKA dos 2009 HPI: Tara Yun is a 59 y.o. patient with obesity, cirrhosis, hypothyroidism, pancytopenia, and history of bilateral TKAs whom I am seeing in consultation requested by Dr. Nino who presents with right knee pain. On 08/08/2019, she reports slipping on wet grass, twisting the right knee and landingon her side. She felt the knee pop at the time. She did not land directly on the knee. Prior to this, she had no problems with either knee. Since this injury, her pain has not improved. She experiences medial, lateral, and posterior knee pain. It is worse when walking and keeps her up at night. Shefeels popping and when bending and extending the knee. She reports swelling. She ambulates without an assistive device. She has been using ice and elevating the knee. She was seen at urgent care on 08/17/19, and x-rays were obtained revealing a stable TKA. She was given an immobilizer brace, which she wore for 2 days. She is taking tramadol as needed for pain as prescribed by her PCP. She has a referral for physical therapy, however has not yet arranged. Today she rates her pain as 7/10 in severity. Comprehensive health database form (including 10 system review) was completed with the patient, reviewed, signed and scanned into EMR system. Medication reconciliation was completed. Past Medical History: reviewed as documented in PRISM chart Past Surgical History: Procedure Laterality Date ??? APPENDECTOMY ??? BONE MARROW BIOPSY ??? CHOLECYSTECTOMY ??? GASTRIC FUNDOPLICATION ??? HERNIA REPAIR ??? HYSTERECTOMY ??? JOINT REPLACEMENT Bilateral with multiple revisions of both knees ??? KNEE SURGERY Bilateral ??? TONSILLECTOMY ??? 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 This included: General: Well-appearing female in no acute distress. Mood and affect appropriate. Vital Signs: There were no vitals taken for this visit. A and O x3. Eyes: Sclerae clear. Cardiovascular: Capillary refill normal. Respiratory: Regular, unlabored, without audible wheezing Station and Gait: Arises from seated position with knee pain, normal station with level pelvis in standing position. Gait is antalgic. Pelvis and Hips: No tenderness or masses, hip ROM is symmetric without reproduction of patient's presenting leg complaint(s) RIGHT KNEE: Skin: Healthy appearing mobile incision ROM exam shows 5 to 90 motion. Flexion reproduces pain Stability testing shows stable to A/P stress. Medial pain with valgus stress Medial and lateral joint line tenderness to palpation No mal-alignment. 2+ effusion. No patellofemoral crepitus Extensor mechanism intact LEFT KNEE: Skin: Healthy appearing mobile incision ROM exam shows 0 to 115 motion. Stability testing shows no instability to AP or varus-valgus stress. No mal-alignment. No effusion. No patellofemoral crepitus. Extensor mechanism intact Lower leg and ankles/feet: normal skin integrity and functional ROM. Neurologic: Intact sensation to light touch in both lower extremities. Tib-ant muscle strength 5/5 bilateral, gastroc-soleus muscle strength 5/5 bilateral Lymphadenopathy: none noted Vascular: DP/PT pulses +2 bilaterally REVIEW OF IMAGING: WB Bilat AP knee and lateral view personally reviewed these films which demonstrate total knee components on the right side appear in stable position without hardware complications. No acute fractureor osseous abnormality. ASSESSMENT: 59 y.o. female with history of bilateral TKAs, (Right 2008, ) with right knee twisting injury on 08/08/19. Films demonstrate stable components without acute fracture. Probable MCL sprain. PLAN: -Rest, ice, elevate as needed -Pain management as prescribed by PCP -Recommend physical therapy. Referral previously provided by PCP -Recommend use of a cane or walking stick as needed to enforce proper body mechanics, stability andsupport. DISPOSITION: follow-up in [facility] in 6 weeks, or sooner as needed for worsening symptoms Dr. Caldwell was the attending physician available in the clinic today if needed. A consultation was not required. Cc: Alma Farfan Cc: Mica documented in this encounter Plan of Treatment Upcoming Encounters Date Type Department Care Team (Late st Contact Info) Description 01/04/2025 13:00 EST Office Visit [facility] Ophthalmology - [address] [id number] Gagandeep Rome MD [address] [place] [address], [facility] [address] [place] [id number] 02/11/2025 13:30 EDT Telemedicine [facility] Hematology [facility] Oncology - [address] [id number] Dana Padilla MD [address] [place] [address], [address] [place] [phone] documented as of this encounter Visit Diagnoses Diagnosis History of knee replacement, total, right- Primary Sprain of medial collateral ligament of right knee, initial encounter documented in this encounter Care Teams Demand Planning Analyst Relationship Specialty Start Date End Date Alma Farfan MD PCP - General 03/14/19 05/21/20 documented as of this encounter
--- OUTSIDE RECORDS SUMMARY | 2024-11-22 17:24 | XMS_ITS | Encounter Summary ---
Author Organization [facility] Address [address] [place] [address] Care Team Providers Care Hydrometeorologist Name Role Phone Alma Farfan MD Primary Care Provider [phone] Reason for Referral * Follow Up (Routine) - New Request Specialty Diagnoses / Procedures Referred By Contac t Referred To Contact Diagnoses Colitis Ileus ([facility]) Hiren Sheth MD Esparza, Alma Villalpando MD [address] [place] [id number] Phone: tel: fax: Referral ID Status Reason Start Date Expiration Date Visits Requested Visits Authorized [id number] New Request Continuity of Care 11/27/2019 1 1 Question Answer Reason for Request: Post-Hospitalization F/U for colitis and mild ileus Expected Discharge Date (Inpatient Only): 11/28/2019 Reason for Visit * Reason Comments Abdominal Pain Pt presents to the E D c/o upper abdominal pain radiating to the back, describes as sharp. X 3 days. Pt had different BP on each arm per EMS. Pt in distress upon arrival. Abdomen is rounded and tender. Hx of hysterectomy, hernia. * Auth/Cert Specialty Diagnoses / Procedures Referred By Contac t Referred To Contact Diagnoses Colitis Colitis Referral ID Status Reason Start Date Expiration Date Visits Re quested Visits Authorized [id number] 1 1 Encounter Details Date Type Department Care Team (Late st Contact Info) Description 11/25/2019 23:18 EST - 11/27/2019 14:00 [facility] General Surgery Unit [address] [place] [address] [id number] Zully Salmon MD [address] [place] [phone] Zully Cook MD [address] [place] [phone] Van Fuentes MD [address] [place] [address] [phone] Bull Augustine MD [address] [place] [phone] Edgadro Alfredo MD [address] [place] [phone] Dimple Grove MD [address] [place] [phone] Ileus (HCC-CMS) (Primary Dx); Colitis; Pancytopenia (HCC-CMS); Hepatic cirrhosis, unspecified hepatic cirrhosis type, unspecified whether ascites present (HCC-CMS) Discharge Disposition: Home or Self Care [...] Reading Time Taken Comments Blood Pressure 108/54 11/27/2019 0927 EST Pulse 58 11/27/2019 0531 EST Temperature 36.8 ??C (98.2 ??F) 11/27/2019 0927 EST Respiratory Rate 16 11/27/2019 0927 EST Oxygen Saturation 95% 11/27/2019 0927 EST Inhaled Oxygen Concentration - - Weight 95.3 kg (210 lb) 11/27/2019 0636 EST Height 162.6 cm (5' 4) 11/27/2019 1000 EST Body Mass Index 36.05 11/27/2019 0636 EST documented in this encounter Functional Status [...] Alfaro RN documented in this encounter Discharge Summaries * Dimple Grove MD - 11/27/2019 1145 EST Medicine Discharge Summary Primary Care Provider: Alma Farfan Attending Physician: Dimple Grove MD Admit Date: 11/25/2019 Discharge Date: 11/27/2019 Disposition: Home or self care Reason for Admission: Abdominal Pain Principal/Final Diagnosis: Partial small bowel obstruction (HCC-CMS) Additional Problems Managed in the Hospital Active Hospital Problems Diagnosis Date Noted ??? *Partial small bowel obstruction (HCC-CMS) 11/27/2019 Resolved Hospital Problems No resolved problems to display. Principal Procedure: None Hospital Course: Tara Boothe is a 59 y.o. 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 A few days prior to presentation, the patient developed intermittent abdominal pain in her belly that progressed to constant diffuse pain on the night of presentation. She also endorse viral URI symptoms in the days leading up to presentation. In the ED, she was afebrile and hemodynamically stable. Labs showed stable baseline leukopenia/thrombocytopenia, normal LFTs, BMP, and negative troponin/lactate. EKG was normal, CT chest showed no aneurysm/dissection (done because she had asymmetric arm blood pressures in EMS), and CT abd/pelv showed mild thickening of the terminal ileum with evidence of low-grade partial small bowel obstruction. She was admitted to the general medicine service made NPO, given mIVF, and started on low-dose opioid pain management. On the floors, she improved symptomatically, passed a bowel movement, and tolerated a regular diet.She was discharged to home on 11/27/19 with the following temporary additions to her [employer] medicationlist: - Tylenol 650mg Q6H PRN - Tramadol 50mg Q8H PRN for 3 days She was also referred for PCP follow-up. ?? Condition at Discharge: Improved Acute Clinical Issues Needing Follow-up: None Allergies Allergen Reactions ??? Morphine Anaphylaxis ??? [...] Component Value Units Date/Time Bacterial Culture, Blood [[id number]] Collected: 11/26/19229 Lab Status: In process Specimen: Blood, Venous Updated: 11/26/19243 Bacterial Culture, Blood [[id number]] Collected: 11/26/19229 Lab Status: In process Specimen: Blood, Venous Updated: 11/26/19243 Follow-up appointments and procedures Amb Consult/Follow Up Primary Care Physician Reason for Request: Post-Hospitalization F/U for colitis and mild ileus Expected Discharge Date (Inpatient Only): 11/28/2019 Authorizing Provider: Hiren Sheth MD Patient's risk for readmission is Low Was primary care office called? No Discharge Summary Completed By: Felice Faria I spent 10 minutes counseling the patient at bedside regarding their plan of care and a total of 25minutes total including coordinating care, reviewing chart, discussing with consultants and the team. Dimple Grove MD documented in this encounter Discharge Instructions * Discharge Instr - AVS First Page* Felice Faria MD - 11/27/2019 13:37 EST You were admitted to the [facility] for a partial small obstruction. You improved with bowel rest, pain management, and fluids. At discharge, we started you on the following medications for pain: - Tylenol 650mg every 6 hours as needed - Tramadol 50mg every 8 hours as needed documented in this encounter Medications at Time [...] 2 Puffs as directed daily. 10/05/2019 06/20/2020 traMADol (ULTRAM) 50 mg tablet Take 1 Tab by mouth every 8 hours as needed for up to 3 days for Pain. Daily Max: 150 mg 9 Tab 11/27/2019 11/30/2019 traZODone (DESYREL) 100 mg tablet Take 150 mg by mouth at bedtime as needed. 04/28/2020 documented as of this encounter Ordered Prescriptions Prescription Sig Dispense Quantity Refills Last Filled Start Date End Date traMADol (ULTRAM) 50 mg tablet Take 1 Tab by mouth every 8 hours as needed for up to 3 days for Pain. Daily Max: 150 mg 9 Tab 11/27/2019 11/30/2019 acetaminophen (TYLENOL) 325 mg tablet Take 2 Tabs by mouth every 6 hours as needed for Pain. 100 Tab 11/27/2019 02/19/2020 documented in this encounter Discharge Disposition Disposition Code Departure Means Destination Home or Self M[facility] documented in this encounter Progress Notes * Monse Mendez - 11/27/2019 1400 EST SOCIAL WORK PROGRESS NOTE: Pt was medically cleared to d/c home with no CM Needs per chart review. Pt's friend provided ride home. Susan Mendez LMSW See Wheeler II Pager: [phone] * Monse Mendez - 11/26/2019 1132 EST Initial Case Management/Social Work Assessment and Discharge Plan/Readmission Risk Assessment REASON FOR ADMISSION: Colitis Patient understands reason for admission: Yes PATIENT CONTACT INFO VERIFIED: Yes PATIENT ADDRESS VERIFIED: Yes LIVING ARRANGEMENTS AND ACCESSIBILITY ISSUES: Living Arrangements: Friends(rents room in single story house ) Levels: 1 Stairs to enter: 2 Handicap access: Railings into home Bathroom located on bedroom level?: Yes What in home social supports are available to the patient? Friends / neighbors, Children Is 24/7 care available? No ADVANCED DIRECTIVES, POA &/or COLST IN PLACE: Healthcare Directive: No, patient does not have advance directive for healthcare treatment Information Provided on Healthcare Directives: Yes Information on Healthcare Directives Requested: No DIRECTIVES FOR FINANCES: Directive For Finances: No TRANSPORTATION: Transportation: Self, Family CULTURAL, ROMAN CATHOLIC and/or LANGUAGE factors affecting health care/discharge planning: Spiritual/Cultural Requests: None Any factors affecting health care/discharge planning?: No Insurance in Place: Yes Medical Insurance: Yes Type of insurance: Medicare, Medicaid Medicare type: A, B, D Medicaid Type: Community Referred to patient financial services: No DISCHARGE RISK ASSESSMENT: Polypharmacy, > 7 medications;History of mental illness Total # selected above: Score of 1 - 2: This patient is at LOW RISK for re-hospitalization Tentative plan to address the risk of re-hospitalization for those at HIGH MODERATE RISK: RAPT TOOL: Age: 50-65 Gender: Female Ambulation distance: 2 or more blocks (600ft) Gait device: None Community Services: Home health, MOW, SAS-none of one time a week Will you live with someone who will care for you?: Yes RAPT Tool Score: 11 Patient expects to be discharged to: home alone SBIRT: SASQ (Single Alcohol Screening Question) How [...] Primary Care Provider: Alma Farfan PCP Verified: Yes Specialists: Other(hematology and GI) Type of Home Health Services: None DME Provider: Pharmacy: [facility]/pharmacy #[id number] - [place], [place] - [address] [place] [address] Home Health: Other: [facility] HOS[facility]ITAL TRANSITION PLAN: SW CM met with pt at bedside. Pt is an AOx3 pleasant female. Pt lives in a one level home with roommates. 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 Pt drives herself to appointments and to work. Pt does not have and advance directive at this time and states she would want her son and sister to be health care agent- SW CM will provide pt with ppw for her to fill it out independently. Pt is hopeful to d/c home alone- her friend Federica can come and pick her up at d/c. Pt has no CM needs at the time of this assessment. Please page this CM if any d/c needs arise. Susan Mendez [facility] See Wheeler II Pager: [phone] MONSE MENDEZ 11/26/2019 11:32 * Edgardo Alfredo MD - 11/26/2019 0835 EST Medicine Progress Note Service Date: 11/26/2019 Admit Date: 11/25/2019 23:18 Primary Care Provider: Alma Farfan Chief Complaint: abdominal pain HPI Tara Boothe is a 59 y.o. female with a PMHx of asthma, obesity, hypothyroidism, chronic back pain, hepatosplenomegaly, hypersplenism, HCV (ab pos, RNA neg), cirrhosis and secondary pancytopenia (Fe transfusions), and multiple abdominal surgeries who presented with abdominal pain. Patient presented to the ED with a 1 week of colicky abdominal pain that began in the epigastric region and worsened to a constant 11/10 pain last night around 11 pm with no relieving factors. The pain began in the epigastric region and then spread diffusely across the abdominal area, around to theback, and up through the chest and shoulders. The patient describes an episode of burning chest pain the last week that she took TUMS for with some relief. The patient describes having a recent cold where she felt under the weather--had sneezing, mild cough, and rhinorrhea, with people in her househaving similar symptoms. She denies fevers, SOB, or chest palpitations. Patient denies recent travel or lymphadenopathy. Patient was concerned that her abdominal pain was a symptom of her liver disease. Patient has had a minimal appetite this past week but does not notice that the pain is correlated with timing of food. Patient does not describe any changes in bowel habits, she has been having BMs daily that are fully formed, no strong odors, no blood, no pain. Patient denies diarrhea. Patient describes nausea and has had episodes of dry heaving with foamy emesis, but denies eh blood. She has not had pain like this before, cannot recall eating any foods that might be the source of her abdominal pain, and denies recent travel. Patient does not have dysuria. She does not have any other sy mptoms other than a history of chronic back pain that she does not take any medication for. Patienthas remained NPO overnight, but describes an episode of sharp abdominal spasm pain when taking a pill with a little water in the ED last night. Rents a room in [facility], works at [employer] (worked yesterday) in the [employer] department, is active at work participating in a lot of lifting activities. Drives, no assistive devices.Current smoker, ~20 pack years, no alcohol, no other drugs. No family hx of IBD. On 06/19/19, EGD at [facility] showed small esophageal varices, moderate portal hypertensive gastropathy, and a 5mm non-bleeding ulcer that was biopsied (antrum mucosa with reactive gastropathy). PPI daily was recommended. On 08/16/19 colonoscopy at [facility] showed a normal ileum and colon. Bone marrow biopsy 04/23/19 at [facility] showed no increased myeloblast or immunophenotypically abnormal myeloid populations. Review of Systems A complete 10 point [...] Per Dr Amelia Tijerina and notes from [facility] patient misconstrued information to several providers [...] 20.00 ??? Smokeless tobacco: Never Used Substance Use Topics ??? Alcohol use: No Alcohol/week: 0.0 standard drinks Family History Problem Relation Age of Onset ??? Cancer Maternal Grandmother ??? Diabetes Mother ??? Coronary Artery Disease Father ??? Clotting Disorder Father ??? Diabetes Brother No current outpatient medications on file. Allergies Allergen Reactions ??? Morphine Anaphylaxis ??? Sulfa (Sulfonamide Antibiotics) Anaphylaxis ??? Tylenol [Acetaminophen] Other (See Comments) Contraindication with medical hx ??? Aspirin Other (See Comments) Contraindication with medical hx ??? Injectafer [Ferric Carboxymaltose] ??? Lyrica [Pregabalin] Anxiety Insomnia ??? Reglan [Metoclopramide Hcl] Rash Objective Vitals Temp: [36.7 ??C (98.1 ??F)-37.7 ??C (99.9 ??F)] (), Heart Rate: [80 BPM-93 BPM] (), Pulse: [87-100](), Resp: [14-20] (), BP: (112-158)/(62-88) (), SpO2: [93 %- 100 %] (), Numeric Pain Level (Scale 1-10): 8 Weight: Weight : 95.3 kg (210 lb) Body mass index is 34.95 kg/m??. Physical Exam Gen: Comfortable, well-appearing woman, in no apparent distress HEENT: NCAT, EOMI, PERRL, MMM, no scleral icterus Neck: supple, no lymphadenopathy, R external jugular IV in place CV: tachycardic, regular, no murmurs, rubs or gallops Pulm: CTAB, good air movement, no wheezing or rales Abd: Soft, mildly distending, mild generalized tenderness, good bowel sounds no guarding or rigidity Extrem: warm and well perfused, no cyanosis or edema Pulses: 2+ in all four extremities Neuro: alert/oriented x3; no focal neurologic deficits appreciated Skin: no rashes, no jaundice, some bruising Psych: normal mood and affect Lines: 3 PIV Labs I have personally reviewed Recent Labs 11/26/19 0715 WBC 1.75* RBC 4.10 HGB 12.7 HCT 37.5 MCV 92 MCH 31.0 MCHC 33.9 PLT 32* NEUTROABS 1.63* Recent Labs 11/25/19 2330 11/26/19 0715 NA 139 137 K 4.5 3.9 CL 106 105 CO2 26 24 BUN 11 -- CREATININE 0.77 0.67 CALCIUM 9.1 -- MG 1.9 -- LABALBU 4.1 -- Recent Labs 11/25/19 2330 PROTIME 14.9* INR 1.3* Recent Labs 11/25/19 2330 TROPONINI <0.034 Recent Labs 11/25/19 2330 TBIL 1.0 ALKPHOS 112 AST 24 ALT 19 LIPASE 72 Imaging I have independently visualized images Ct Abdomen Pelvis W Contrast Final result 11/26/2019: IMPRESSION 1. Mild thickening of the terminal ileum with evidence of low-grade partial small bowel obstruction. Etiology of the ileal findings may be inflammatory or infectious. 2. Cirrhotic configuration of the liver with stigmata of portal hypertension including marked splenomegaly and portal colopathy. 3. Decreased size of the chronic portal venous thrombus. 4. Otherwise as above. Ct Angio Chest Final result 11/26/2019: IMPRESSION 1. No evidence of dissection, aneurysm, or other acute aortic abnormality. 2. Focal stenosis of the proximal left circumflex coronary artery estimated at less than 50%, not optimally evaluated on this examination. Assessment Tara Boothe is a 59 y.o. female with a PMHx of asthma, obesity, chronic back pain, hypothyroidism, HCV (ab positive, RNA negative 2012), cirrhosis with hepatosplenomegaly, hypersplenism, small varices, and secondary pancytopenia (Fe transfusions) who presented with abdominal pain, found to havemild neutropenia and mild thickening of terminal ileum with evident of low-grade partial small bowel obstruction on CT. No signs of acute abdomen currently on exam or vital sign derangements. Plan #Mild thickening of terminal ileum w/ evidence of low-grade partial small bowel obstruction - completely normal colonoscopy 08/16. Differential includes infectious (neutropenic enterocolitis; though mild neutropenia), inflammatory (Crohn's; cecum area), ischemia (not watershed area), or adhesions with PMHx of abdominal surgeries. Less likely bacterial etiology due to timing/onset, lack of fevers, and neutropenia and more likely due to viral causes due to history of recent viral illness. Mesenteric ischemia less likely due to pain having no association with timing meals. Monitor small bowel obstruction for peritoneal signs. ANC remains stable. Assuming viral cause of illness, discontinue antib iotics and slowly reintroduce liquids/food as tolerated. Pending fecal calprotectin to rule out inflammatory cause. - Discontinue CTX 1g daily and Metronidazole 500 mg q8h - F/u bcx - LR 150/h for 1L - Pending Fecal path and Fecal calprotectin - Serial abdominal exams - Watch for development of obstruction - Dilaudid 0.25 mg q4h prn (use sparingly w ileus) - Zofran prn - Clear liquid diet #Pancytopenia secondary to cirrhosis and hypersplenism unremarkable BM bx in 04/2019. Has been significantly neutropenic in the past (anc 480 in ) and mildy neutropenic currently (1470). Treated with Fe infusions by Dr. Paige. Small varices on EGD 05/2019 not started on BBlocker, small amount i ntraperitoneal fluid/ascites on CT. 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 I was present with the medical student for the history, exam, medical decision making documented byhim/her. I have personally performed my own physical exam and medical decision making. I have verified and agree with (or, as indicated, have edited) the medical student???s documentation. CT films reviewed. No evidence of colitis Mild enteritis likely viral. Agree to discontinue antibiotics Clear liquid diet and advance as tolerated Continue other supportive measures Received signout from Dr. Alfredo Alfredo MD * Jenna Gonzalez RN - 11/26/2019 0430 EST Data: pt arrived to floor from ED A/Ox3, HRR, lungs clear on RA. Pt complains of 10/10 abdominal pain. RN paged provider regarding pain. Action: vitals signs obtained, pt oriented to room with callbell to bedside. Prn IV dilaudid given with good effect. Scheduled meds given as ordered. Response: pain is under control after pain medication. Pt sleeping comfortably. Will continue to monitor. JENNA GONZALEZ RN 11/26/2019 4:31 * Araceli Perry, - 11/26/2019 0157 EST Respiratory Consult/Progress Note Indications for Respiratory therapy: History of bronchospasm Data Vitals: Heart Rate: 88 BPM, Resp: 19, SpO2: 95 % FIO2/O2 Device: , , O2 Device: None, RT Orders: pending Protocol Scoring: Bronchodilator/Inhalation Therapy Frequency Bronchodialator - Clinical Indications: History of bronchospasm Breath Sounds: Any abnormal BS decreased Response: No change / no treatment Pulse: <100 Resp Rate: 18-25 SOB: With exertion Total Score: 3 Comment:: home routine bid Airway Clearance Therapy Frequency Airway Clearance - [...] 1 Comment: not indicated Action/Events Consult complete. Pt verifies home routine is BID Flovent and PRN Albuterol. Does not currently usespacer so spacer eduction was provided. Pt can use independently and understands benefit of device.Spacer given to pt. No baseline oxygen or NIV. Response/Results MDI with spacer to be administered by RT MLEISSA 11/26/19 documented in this encounter H&P Notes * Van Fuentes MD - 11/26/2019 0144 EST Medicine Admission History & Physical Service Date: 11/26/2019 Admit Date: 11/25/2019 23:18 Primary Care Provider: Alma Farfan Chief Complaint: abdominal pain FINA Boothe is a 59 y.o. female with a PMHx of asthma, obesity, hypothyroidism, chronic back pain, hepatosplenomegaly, hypersplenism, HCV (ab pos, RNA neg), cirrhosis and secondary pancytopenia (Fe transfusions) who presented with abdominal pain. A few days ago, started to get spasms in her belly that came and went, then last night became constant and worse. The abdominal pain is diffuse, seems to radiate from the umbilicus area, 10/10, squeezing pain. Worsened by eating/drinking almost immediately, not relieved by anything. Associated withnausea, frequent retching, and vomiting (foamy, with a tinge of blood). No diarrhea, had 2 BMs today that were brown and formed. She also complains of chills but no CP, urinary symptoms. Never had pain like this before. She has not eaten anything out of the ordinary. Has had symptoms of a beginning URI for a few days such as sneezing, mild cough, and rhinorrhea. People who live in the same house have had similar symptoms (but not the abdominal pain). Rents a room in [facility], works at [employer] (worked yesterday), drives, no assistive devices. Current smoker, ~20 pack years, no alcohol, no other drugs. No family hx of IBD. On 06/19/19, EGD at [facility] showed small esophageal varices, moderate portal hypertensive gastropathy, and a 5mm non-bleeding ulcer that was biopsied (antrum mucosa with reactive gastropathy). PPI daily was recommended. On 08/16/19 colonoscopy at [facility] showed a normal ileum and colon. Bone marrow biopsy 04/23/19 at [facility] showed no increased myeloblast or immunophenotypically abnormal myeloid populations. In the ED, labs showed stable baseline leukopenia/thrombocytopenia, normal LFTs, BMP, and negative troponin/lactate. EKG was normal, CT chest showed no aneurysm/dissection, and CT abd/pelv showed colitis of cecum and ascending colon. Treated with fentanyl, oxycodone, and admitted to medicine. Review of Systems A complete 10 point [...] Per Dr Amelia Tijerina and notes from [facility] patient misconstrued information to several providers [...] 20.00 ??? Smokeless tobacco: Never Used Substance Use [...] by mouth 3 times daily with meals. fluticasone (FLOVENT) 110 mcg/actuation inhaler Inhale 110 mcg as directed 2 times daily. LEVOTHYROXINE SODIUM (LEVOTHYROXINE ORAL) Take 25 mcg by mouth daily. Unknown dose omeprazole (PRILOSEC) 20 mg capsule Take 20 mg by mouth daily. traMADol (ULTRAM) 50 mg tablet Take 1 Tab by mouth at bedtime as needed for Pain. Daily Max: 50 mg traZODone (DESYREL) 100 mg tablet Take 100 mg by mouth 2 times daily. Allergies Allergen Reactions ??? Morphine Anaphylaxis ??? Sulfa (Sulfonamide Antibiotics) Anaphylaxis ??? Tylenol [Acetaminophen] Other (See Comments) Contraindication with medical hx ??? Aspirin Other (See Comments) Contraindication with medical hx ??? Injectafer [Ferric Carboxymaltose] ??? Lyrica [Pregabalin] Anxiety Insomnia ??? Reglan [Metoclopramide Hcl] Rash Objective Vitals Temp: [36.7 ??C (98.1 ??F)] (), Heart Rate: [80 BPM-93 BPM] (), Pulse: [100] (), Resp: [14-19] (), BP: (112-130)/(62-88) (), SpO2: [93 %-100 %] (), Numeric Pain Level (Scale 1-10): 10 Weight: Weight : 95.3 kg (210 lb) Body mass index is 34.95 kg/m??. Physical Exam Gen: Lying in bed in NAD in moderate distress, moaning in waves HEENT: NCAT, EOMI, PERRL, MMM, no scleral icterus Neck: supple, CV: tachycardic, regular, no m/r/g Pulm: CTAB, good air movement, no w/r/r Abd: Soft, tender to palpation most notably in umbilical region, decreased BS Extrem: warm and well perfused, no cyanosis or edema Pulses: 2+ in all four extremities Neuro: alert/oriented x3; no focal neurologic deficits appreciated Skin: no rashes, no jaundice Psych: normal mood and affect Lines: PIV Labs I have personally reviewed Recent Labs 11/25/19 2330 WBC 1.77* RBC 4.46 HGB 13.8 HCT 41.0 MCV 92 MCH 30.9 MCHC 33.7 PLT 41* NEUTROABS 1.47* Recent Labs 11/25/19 2330 NA 139 K 4.5 CL 106 CO2 26 BUN 11 CREATININE 0.77 CALCIUM 9.1 MG 1.9 LABALBU 4.1 Recent Labs 11/25/19 2330 TROPONINI <0.034 Recent Labs 11/25/19 2330 TBIL 1.0 ALKPHOS 112 AST 24 ALT 19 LIPASE 72 Imaging I have independently visualized images Ct Abdomen Pelvis W Contrast Result Date: 11/26/[address] ABDOMEN PELVIS W CONTRAST 11/26/2019 12:18 AM Signs and Symptoms/Comments: Epigastric/back pain. Technique: CT of the abdomen and pelvis was performed following theadministration intravenous contrast; coronal and sagittal multiplanar reconstructions generated. Comparison: CT renal colic 10/21/2019. Findings: Lower chest: For findings within the chest, refer to CTA of the chest obtained concurrently. Hepatobiliary: The liver enhances normally. No concerning hepatic lesions are seen. The gallbladder surgically absent. Spleen, pancreas, adrenal glands: The spleen is enlarged. The pancreas is unremarkable. No pancreatic ductal dilatation. Tiny nodule in the left adrenal gland is unchanged from one year prior. Kidneys, ureters, bladder: The kidneys enhance symmetrically. No hydronephrosis, renal calculi, or concerning renal lesions are seen. Uterus, ovaries: The uterus is surgically absent. No adnexal masses are seen. Bowel: There is extensive fat stranding involving primarily the cecum and ascending colon. There is mild distention of the small bowel with fecalization of contents in the distal ileum. No abrupt transition point is seen. Numerous diverticuli are seen in the sigmoid colon. Peritoneal cavity / Subperitoneal space: No free air or drainable collection. There is a small amount of free fluid is present in the right abdomen and in the right paracolic recess. Lymphovascular: Vascular calcifications are present in the abdominal aorta. Old thrombus from known prior portal venous thrombosis is present at the elizabeth splenic confluence. Overall thrombus burden is decreased compared to the most recent contrast enhanced CT. There is enlargement of the splenic and the intrahepatic portal veins. Abdominal wall: Hernia repair mesh is seen in the right anterior abdominal wall. Multiple surgical clips are seen at the midline. No bowel containing hernias are seen. Musculoskeletal: No fracture or concerning osseous lesion. Lan Analyst: No additionalfinding. 1. Findings of colitis involving the cecum and ascending colon. Infectious and inflammatory etiologies are in the differential. 2. There is an associated small bowel ileus with fecalization of distalsmall bowel contents. 3. Redemonstration of sequela from prior portal venous thrombosis including splenomegaly. 4. Atherosclerosis. These findings were discussed by phone with ZULLY SALMON by Sowmya Nelson MD on 11/26/2019 12:[address] Angio Chest Result Date: 11/26/[address] ANGIO CHEST 11/26/2019 12:09 AM Clinical History/Comments: Chestpain, asymmetric upper extremity blood pressures. Technique: An initial oag-uabnotyb-ghwzicem helical CT acquisition of the chest with scans extending from lung apex through the bases was performed on a multidetector row scanner with a reconstructed slice thickness of 3 mm. This was immediately followed by a xfzkluclpfnxeas-LWW-ffbam contrast-enhanced helical acquisition from the lung apex inferiorly to the lung bases following the intravenous administration of 80-100 cc of 350-370 mg% nonioniccontrast at an injection rate of 4 cc/second, with scan acquisition timed by the use of bolus-tracking software targeted to the proximal descending aorta. Scans were reconstructed prospectively at 2.5-3.0 mm thickness at 2.0 mm intervals and retrospectively reconstructed at 75% of the R-R interval of the cardiac cycle with 0.9 mm thickness at 0.45 mm intervals in a soft tissue algorithm for three dimensional reconstructions and interpretation on a dedicated PACS workstation. The radiologist reviewed and adjusted the images for the 3D rendering on an independent workstation, as necessary, prior to interpretation. Exam description: CTA of the chest Comparison: Chest CT 07/17/2015.. Findings: Op acification of the aorta is good No dissection, aneurysm or other acute aortic abnormality is identified. Lower neck: No abnormalities. Chest wall soft tissues: No abnormalities. Mediastinum and leobardo: There is a mildly enlarged right lower paratracheal lymph node, which may be reflective of 2 adjacent lymph nodes. The remaining mediastinal lymph nodes are not enlarged. The esophagus appears normal. Heart and mediastinal vasculature: There is a trace pericardial effusion. The coronary arteries are calcified. The cardiac chambers are normal in size. Large airways: There is moderate diffuse airways thickening, as well as scattered distal airways secretions. Lungs: With a attenuation of the lung parenchyma due to groundglass is likely reflective of distal airways disease. A small cyst is seenin the lingula. Pleura: No visible pleural abnormalities. Abdomen: For findings within the abdomen,refer to dedicated CT of the abdomen obtained concurrently. Bones: No acute fractures or concerningosseous lesions are seen. 1. No evidence of dissection, aneurysm, or other acute aortic abnormality. 2. Trace pericardial effusion. 3. Coronary atherosclerosis. 4. Mildly enlarged right lower paratracheal lymph node may be reflective of 2 adjacent lymph nodes, likely reactive.. Assessment Tara Boothe is a 59 y.o. female with a PMHx of asthma, obesity, chronic back pain, hypothyroidism, HCV (ab positive, RNA negative 2012), cirrhosis with hepatosplenomegaly, hypersplenism, small varices, and secondary pancytopenia (Fe transfusions) who presented with abdominal pain, found to havemild neutropenia and colitis of cecum/ascending colon. No signs of acute abdomen currently on exam or vital sign derangements. Plan #Cecal and ascending colitis with small bowel ileus completely normal colonoscopy 08/16. Differential includes infectious (neutropenic enterocolitis; though mild neutropenia), inflammatory (Crohn's; cecum area), and ischemia (not watershed area). With any of these diagnoses, it is odd that she is not having diarrhea unless she has developed a bowel obstruction since her BMs earlier today. Most life-threatening diagnosis would be neutropenic enterocolitis and if her ANC declines tomorrow would consider moving to cefepime. - CTX 1g daily - Metronidazole 500 mg q8h - F/u bcx - LR 150/h for 1L - Fecal path - Fecal calprotectin - Serial abdominal exams - Watch for development of obstruction - Dilaudid 0.25 mg q4h prn (use sparingly w ileus) - Zofran prn - NPO - follow up final read CTA chest and CT abdomen/pelvis #Pancytopenia secondary to cirrhosis and hypersplenism unremarkable BM bx in 04/2019. Has been significantly neutropenic in the past (anc 480 in Nov.) and mildy neutropenic currently (1470). Treated with Fe infusions by Dr. Paige. Small varices on EGD 05/2019 not started on BBlocker, free intraperitoneal fluid/ascites on CT. - CBC w diff - Watch ANC - Hold DVT ppx - Na restriction when eating - consider starting non-selective beta warren if BP allows, given varices on EGD Chronic Problems #Chronic portal vein thrombosis: decreased in size on current CT from prior #Chronic pain - hold water vessel captain tramadol #Hypothyroidism - water vessel captain levothyroxine (oral or IV) #Asthma - water vessel captain albuterol prn - water vessel captain symbicort #Insomnia - water vessel captain trazodone 150mg qhs prn VTE Prophylaxis held Plt <50 Code: FULL Discharge Plan Home or self care Consults None Admission Status Inpatient. Anticipated duration of hospitalization is greater than two midnights due to colitis. Gaetano Lake MD 11/26/2019 1:47 ATTENDING ATTESTATION: I have interviewed and examined the patient on 11/26/2019. I have personally reviewed the ECG, laboratory data, imaging studies, and prior records. I have discussed the case with Dr. Zully Cook (ED attending) and Dr. Lake (medicine resident). I agree with the findings and plan of care as documented in the resident's note. Additions or editsare documented in purple. aVn Fuentes MD 11/26/2019 7:32 documented in this encounter ED Notes * Mohan Zaidi RN - 11/26/2019 0235 EST Blood cultures drawn and sent to the lab. Pt on her way to [place] [facility]. * Mohan Zaidi RN - 11/26/2019 0215 EST Admitting service at the bedside. * Mohan Zaidi RN - 11/26/2019 0132 EST MD at bedside to update patient on the plan of care. * Mohan Zaidi RN - 11/26/2019 0100 EST Pt continues to complain of intermittent abdominal pain. Abdomen is diffusely tender. MD notified and ordered Oxycodone. Pt medicated per JAN and tolerated well. * Mohan Zaidi RN - 11/26/2019 0044 EST Pt taken to CT via stretcher on monitor. Pt now back in room 4. Pt resting in bed, pain under control at this time. * Zully Cook MD - 11/26/2019 0009 EST I, Arlette Hinojosa, am scribing for Zully Cook MD while he/she is personally performing the service. Arlette Hinojosa 11/26/2019 0:09 Tara Boothe is a 59 y.o. female who presents to the ED with midline epigastric pain radiating through to her back, greater on right than left. Per EMS, patient had SBP of 170 on one arm, 120 on the other. Patient reports a history of AAA, though this is not noted in her record. Medical record does show history of drug seeking behavior and multiple abdominal surgeries. Patient is not anticoagulated. Care and work-up prior to sign out includes bedside US with aorta not visualized and administrationof 100 mcg fentanyl. Patient had labs significant for lactate 1.3, CMP normal, troponin negative, lipase 72, white blood cell count 1.77 (up from baseline), platelets 41 (up from baseline). I assumed care of patient from Dr. Salmon with imaging (CTA of chest, abdomen, and pelvis) pending. 2350: After I assumed care the patient was reevaluated. She reported epigastric pain radiating to her back (radiating more when pain was more severe) as well as left arm numbness, nausea, and vomiting (last episode of vomiting with EMS). Patient reported chest pressure that also worsened with worsening abdominal pain and shortness of breath secondary to pain. She noted decreased PO intake (ate soup and drank tea and gingerale today). Per patient, these symptoms started a few days ago and worsened today. Patient stated that she had had a cold (Tmax 100.2 at home). She noted that she had 2 normal BMs today (most recent late afternoon) and was still passing gas. She reported extensive history of abdominal surgeries including cholecystectomy, appendectomy, hysterectomy, and hernia repair. Shealso noted PMH of cirrhosis, QUIROZ, splenic vein thrombosis, and renal calculi. She stated that she was not anticoagulated due to chronically low PLT. She denied history of bowel obstruction or previous similar episodes. Of note, per RN, patient had no BP discrepancy in the ED. CTA Chest, Abdomen, and Pelvis were significant for colitis involving the cecum and ascending colon, no acute aortic abnormality. Case was discussed with Internal Medicine, who felt that the patient was appropriate for admission to their service. Patient was admitted under the care of Dr. Fuentes. This documentation is recorded by Arlette Hinojosa acting as Scribe under the direction and presence ofZully Cook MD. Zulyl Cook MD: I personally performed the services recorded by the scribe in my presence. I confirm the scribe's documentation has been reviewed by me to accurately and completely record my work, treatment, procedures, and medical decision making. * Zully Salmon MD - 11/25/2019 8483 EST This patient received an evaluation and medical screening exam for emergent medical conditions at the [facility] on 11/25/2019 Chief Complaint Abdominal pain HPI Tara Boothe is a 59 y.o. female with PMH including drug-seeking behavior, splenic vein thrombosis, chronic back pain, cirrhosis of the liver, obesity, hypothyroidism who presents to the ED for abdominal pain radiating to her back. She states the discomfort has been going on for a few days but became acutely worse tonight. She endorses associated nausea and vomiting. She has been having normalbowel movements and passing gas without any diarrhea. She denies fevers. Per EMS, they noted discrepant blood pressures in the bilateral upper extremities with one side reading the 170s in the other side reading the 120s systolically. History was provided by: EMS, patient, patient records. History is very limited due to patient anxiety and clinical condition. Patient's pertinent PMH, FH, SH were reviewed and updated PRN. ROS Review of systems limited secondary to patient condition Physical Exam Vital Signs Vitals Reassessment?: Yes Temp: 36.7 ??C (98.1 ??F) Temp src: Tympanic Pulse: 100 Heart Rate: 93 BPM Resp: 14 SpO2: 100 % BP: 117/79 BP MAP: 87 mm Hg BP Device: BP Machine O2 Device: None (Room air) Nursing notes and vital signs were reviewed. Constitutional: Anxious, in moderate distress, palpable pulses in all 4 extremities Eyes: Pupils equal and reactive to light, no scleral icterus Mouth: Moist oral mucosa without apparent lesions Neck: Full ROM, no cervical LAD Heart: RRR without MRG; Lungs: Clear to auscultation Abdomen: Distended, diffusely tender, guarding, firm in the epigastrium, surgical scars that are well-healed. Bilateral CVA tenderness, right greater than left. Anxious, in moderate distress, Skin: No overt rashes on exposed skin Extremities: Moving spontaneously, warm and well perfused. Neuro: Grossly neurologically intact with normal speech Psych: Agitated and anxious Laboratory Results Labs Reviewed HOLD BLUE TOP HOLD GREEN TOP HOLD LAVENDER TOP HOLD SST LACTIC ACID POCT URINE DIPSTICK, CLINITEK ORDER Narrative: The following orders were created for panel order POCT URINE DIPSTICK, CLINITEK ORDER. Procedure Abnormality Status --------- ------ POCT URINE DIPSTICK, CLI...[[id number]] POCT CSN BARCODE URINE D...[[id number]] Please view results for these tests on the individual orders. POCT CSN BARCODE URINE DIPSTICK COMPLETE BLOOD COUNT AND DIFFERENTIAL COMPREHENSIVE METABOLIC PANEL (CMP) LIPASE MAGNESIUM TROPONIN I POCT URINE DIPSTICK, CLINITEK BLOOD BANK HOLD Data Interpretation An EKG was obtained an independently interpreted: Sinus rhythm at 93 bpm; regular; normal axis; normal intervals; no ST elevations or depressions. Imaging obtained was reviewed and independently interpreted: CT angiogram chest, abdomen, pelvis pending at the time of change of shift. Laboratory results independently reviewed, significant for: Lactate 1.3, CMP normal, troponin negative, lipase 72, white blood cell count 1.77 (up from baseline), platelets 41 (up from baseline) Procedures Procedures None ED Course/Medical Decision Making A medical screening was performed. The patient is a 59 y.o. female with a history of including drug-seeking behavior, splenic vein thrombosis, chronic back pain, cirrhosis of the liver, obesity, hypothyroidism who presents to the ED for abdominal pain radiating to her back with reportedly discrepant blood pressures in the bilateral arms. Physical exam was significant for diffusely tender, distended abdomen with firmness noted in the epigastric region and bilateral CVA tenderness right greater than left. Differential diagnosis includes but is not limited to AAA, renal colic, aortic dissection, bowel obstruction, peptic ulcer disease. The patient arrives anxious and in acute pain. She is administered fentanyl. IV access is immediately obtained. Vital signs show mild hypotension. POCT ultrasound of the abdomen to look for AAA performed, but it is very limited, and I cannot identify the abdominal aorta due to underlying bowel gas and the patient's body habitus. Images were notsaved, as there was no diagnostic information obtained from them. Given the discrepant blood pressures, the pain radiating through to her back, the decision is made to pursue evaluation with CT scan, predominantly looking for dissection. The patient did not have a AAA noted on CT scan of abdomen and pelvis in October 2018, and I think it is unlikely that she hasdeveloped a significant AAA in the interim that would not be rupturing. Labs are pending, and she is receiving pain management. Labs that are back thus far are reassuring. CT scan of the chest, abdomen, and pelvis with angiography is pending. I signed the patient out to Dr. Lary Cook at change of shift to follow-up CT scan and reassess the patient. While under my care in the Emergency Department, the patient's pain was managed to an adequate level weighing risk vs. benefit of medication. Clinical Impression Final diagnoses: None Disposition Signed out (see progress Notes) The patient's pain was managed to an adequate level weighing risk vs. benefit of further medications.At the end of my care of this patient, the patient's pain was 6 on a zero to ten scale. Any further pain treatment will be at the discretion of the provider following up with the patient based on their clinical assessment. Condition at the end of my care of this patient: Fair * Mohan Zaidi RN - 11/25/2019 2341 EST Pt given Fentanyl for pain, this has helped relieve her pain. Awaiting CT scan. * Dilan Taylor - 11/25/2019 2331 EST 12 Lead EKG Performed by DILAN TAYLOR and shown to Zully Salmon MD. documented in this encounter Miscellaneous Notes * Plan of Care - Kimberley Dinh RN - 11/27/2019 1412 EST Problem: Daily Care Plan Goals Goal: Care Plan Documentation Flowsheets (Taken 11/27/2019 1408) Area of Focus: Discharge Plan Note: Nursing Discharge Note D: Patient noted with discharge orders to: Home A: Prescriptions for Tramadol and Tylenol sent electronically to [facility] in [place]. I reviewed discharge instructions and prescriptions with pt. Belongings collected and sent home with patient. R: Pt verbalized understanding of discharge instructions and denied further questions. DC to lobby via [employer] to meet ride home. KIMBERLEY DINH RN 11/27/2019 14:08 * Plan of Care - Fatoumata Roberto RN - 11/26/2019 1136 EST Data: Pt on HD#0 for abdominal pain. Pt has not had bowel movement since admission. Pt reporting nausea without emesis and 8/10 abdominal pain most of the AM. EJ removed by IV nurse this AM-dressing in place. No need to check urine per MD Faria. Pt has history of hepatitis C. Action: Advanced pt to clear liquid diet per MD order. Administered PRN IV dilaudid and zofran per MD order (see eMar). Encouraged ambulation OOB. Response: Pt reporting 6/10 pain after administration of IV dilaudid. Pt continues to report nauseawith clear liquid diet. Will continue to monitor. FATOUMATA ROBERTO RN 11/26/2019 11:36 documented in this encounter Plan of Treatment Upcoming Encounters Date Type Department Care Team (Late st Contact Info) Description 01/04/2025 13:00 EST Office Visit [facility] [place] [address] Gagandeep Rome MD [address] [place] [address], [address] [place] [phone] 02/11/2025 13:30 EDT Telemedicine [facility] Hematology & Oncology - [facility] [address] [place], [place] [id number] Dana Padilla MD [address] [facility], [address] [place] [phone] Pending Results Name Type Priority Associated Diagnoses Date /Time POCT US ED AORTA Imaging STAT 11/25/19 20 23:20 EST Scheduled Orders Name Type Priority Associated Diagnoses Orde r Schedule POCT US ED AORTA Imaging STAT One Time for 1 Occurrences starting 11/25/2019 until 11/25/2019 Scheduled Referrals Name Type Priority Associated Diagnoses Orde r Schedule AMB CONS/FOLLOW UP PRIMARY CARE PHYSICIAN Outpatient Referral Routine Colitis Ileus ([facility]) Ordered: 11/27/2019 documented as of this encounter Procedures Procedure Name Priority Date/Time Associated Diagnosis Comments ECG REPORT - SCANNED 12/05/2019 10:27 EST DIFFERENTIAL, AUTOMATED MANUAL Today 11/27/2019 8:42 EST COMPLETE BLOOD COUNT AND DIFFERENTIAL Routine 11/27/2019 8:42 EST CREATININE Routine 11/27/2019 8:42 EST ELECTROLYTES Routine 11/27/2019 8:42 EST DIFFERENTIAL, AUTOMATED MANUAL Today 11/26/2019 7:15 EST COMPLETE BLOOD COUNT AND DIFFERENTIAL Routine 11/26/2019 7:15 EST CREATININE Routine 11/26/2019 7:15 EST ELECTROLYTES Routine 11/26/2019 7:15 EST BACTERIAL CULTURE, BLOOD Routine 11/26/2019 2:30 EST BACTERIAL CULTURE, BLOOD Routine 11/26/2019 2:[address] ABDOMEN PELVIS W CONTRAST STAT 11/26/2019 0:[address] ANGIO CHEST STAT 11/26/2019 0:16 EST LACTIC ACID STAT 11/25/2019 23:41 EST DIFFERENTIAL, AUTOMATED MANUAL Today 11/25/2019 23:30 EST HOLD SST STAT 11/25/2019 23:30 EST HOLD LAVENDER TOP STAT 11/25/2019 23: 30 EST HOLD GREEN TOP STAT 11/25/2019 23:30 EST HOLD BLUE TOP STAT 11/25/2019 23:30 EST TROPONIN I STAT Add-on 11/25/2019 23:30 EST PROTIME Add-On 11/25/2019 23:30 EST COMPLETE BLOOD COUNT AND DIFFERENTIAL STAT Add-on 11/25/2019 23:30 EST BLOOD BANK HOLD STAT 11/25/2019 23:30 EST C REACTIVE PROTEIN Add-On 11/25/2019 23 :30 EST MAGNESIUM STAT Add-on 11/25/2019 23:30 EST LIPASE STAT Add-on 11/25/2019 23:30 EST COMPREHENSIVE METABOLIC PANEL (CMP) STAT Add-on 11/25/2019 23:30 EST EKG 12-LEAD STAT 11/25/2019 23:24 EST documented in this encounter Results * ECG REPORT - SCANNED (12/05/2019 10:27 EST) 12/05/2019 10:2 7 EST us Scan 2 Black Powder Glazing Operator PROCEDURE/MINOR SURGICAL OR DERABLES Final Result * (ABNORMAL) DIFFERENTIAL, AUTOMATED MANUAL (11/27/2019 8:42 EST) % Neutrophils 77.9 % 11/27/2019 9:35 [facility] % Lymphocytes 15.9 % 11/27/2019 9:35 [facility] % Monocytes 4.4 % 11/27/2019 9:35 [facility] % Basophils 1.8 % 11/27/2019 9:35 [facility] Absolute Neutrophils 1.11(L) 2.20 - 8.85 K/cmm 11/27/2019 9:35 [facility] Absolute Lymphocytes 0.23(L) 1.09 - 3.30 K/cmm 11/27/2019 9:35 [facility] Absolute Monocytes 0.06(L) 0.10 - 0.80 K/cmm 11/27/2019 9:35 [facility] ABS Basophils 0.03 0.01 - 0.11 K/cmm 11/27/2019 9:35 [facility] Blood VENOUS BLOOD / Unknown Venipuncture / Unknown 11/27/2019 8:42 EST 11/27/2019 8:50 EST us Gaetano Lake MD HEMATOLOGY & PF4 ORDERABLES F inal Result Performing Organization Address City/State/[facility] Co de Phone Number [facility] [address] [place] [phone] * (ABNORMAL) COMPLETE BLOOD COUNT AND DIFFERENTIAL (11/27/2019 8:42 EST) WBC 1.42(L) 4.00 - 12.40 K/cmm 11/27/2019 9:21 [facility] RBC 3.92 3.86 - 5.04 M/cmm 11/27/2019 9:21 [facility] Hemoglobin 11.9 11.6 - 15.2 gm/dL 11/27/2019 9:21 [facility] HCT 36.2 34.9 - 44.4 % 11/27/2019 9:21 [facility] MCV 92 81 - 98 fl 11/27/2019 9:21 [facility] MCH 30.4 26.7 - 33.3 pg 11/27/2019 9:21 [facility] MCHC 32.9 32.1 - 35.9 gm/dL 11/27/2019 9:21 [facility] LABORATORY SERVICES RDW-CV 14.4 <14.7 % 11/27/2019 9:21 [facility] RDW-SD 48.5 <50.4 fl 11/27/2019 9:21 [facility] PLT 33(L) 141 - 377 K/cmm 11/27/2019 9:21 [facility] MPV 9.9 9.5 - 12.7 fl 11/27/2019 9:21 [facility] Type of Differential: Manual 11/27/2019 9:21 [facility] Blood VENOUS BLOOD / Unknown Venipuncture / Unknown 11/27/2019 8:42 EST 11/27/2019 8:50 EST Gaetano Lake MD PACKAGES & DNA PROBE ORDERABL ES Final Result [facility] [address] [place] [address] * CREATININE (11/27/2019 8:42 EST) Creatinine 0.72 0.52 - 1.04 mg/dL 11/27/2019 9:26 [facility] eGFR 92 >60 mL/min/1.7 3m2 11/27/2019 9:26 [facility] Comment:eGFR calculated lobito coppola CKD-EPI equation for non- Americans. Multiply eGFR by 1.16 for patients. Blood VENOUS BLOOD / Unknown Venipuncture / Unknown 11/27/2019 8:42 EST 11/27/2019 8:50 EST Gaetano Lake MD CHEMISTRY & BLOOD GAS ORDERAB LES Final Result Performing Organization Address [facility] Co de Phone Number [facility] [address] [place] [address] * ELECTROLYTES (11/27/2019 8:42 EST) Sodium 137 136 - 145 mEq/L 11/27/2019 9:26 [facility] Potassium 4.5 3.5 - 5.0 mEq/L 11/27/2019 9:26 [facility] Chloride 103 96 - 110 mEq/L 11/27/2019 9:26 [facility] CO2 Total 27 22 - 32 mEq/L 11/27/2019 9:26 [facility] Blood VENOUS BLOOD / Unknown Venipuncture / Unknown 11/27/2019 8:42 EST 11/27/2019 8:50 EST Gaetano Lake MD CHEMISTRY & BLOOD GAS ORDERAB LES Final Result Performing Organization Address [facility] de Phone Number [facility] [address] [place] [address] * (ABNORMAL) DIFFERENTIAL, AUTOMATED MANUAL (11/26/2019 7:15 EST) Pathologist [facility] % Neutrophils 93.0 % 11/26/2019 10:25 [facility] % Lymphocytes 4.4 % 11/26/2019 10:25 [facility] % Atypical Lymphocytes 0.9 % 11/26/2019 10:25 [facility] % Monocytes 1.7 % 11/26/2019 10:25 [facility] Toxic Granulation Present 11/26/2019 10:25 [facility] Vacuolated Neutrophils Present 11/26/2019 10:25 [facility] Absolute Neutrophils 1.63(L) 2.20 - 8.85 K/cmm 11/26/2019 10:25 [facility] Absolute Lymphocytes 0.08(L) 1.09 - 3.30 K/cmm 11/26/2019 10:25 [facility] Absolute Atypical Lymphocytes 0.02 K/cmm 11/26/2019 10:25 [facility] Absolute Monocytes 0.03(L) 0.10 - 0.80 K/cmm 11/26/2019 10:25 [facility] Blood VENOUS BLOOD / Unknown Venipuncture / Unknown 11/26/2019 7:15 EST 11/26/2019 7:48 EST us Gaetano Lake MD HEMATOLOGY & PF4 ORDERABLES F inal Result [facility] [address] [place] [id number] * (ABNORMAL) COMPLETE BLOOD COUNT AND DIFFERENTIAL (11/26/2019 7:15 EST) WBC 1.75(L) 4.00 - 12.40 K/cmm 11/26/2019 8:02 [facility] RBC 4.10 3.86 - 5.04 M/cmm 11/26/2019 8:02 [facility] Hemoglobin 12.7 11.6 - 15.2 gm/dL 11/26/2019 8:02 [facility] HCT 37.5 34.9 - 44.4 % 11/26/2019 8:02 [facility] MCV 92 81 - 98 fl 11/26/2019 8:02 [facility] MCH 31.0 26.7 - 33.3 pg 11/26/2019 8:02 [facility] MCHC 33.9 32.1 - 35.9 gm/dL 11/26/2019 8:02 [facility] RDW-CV 14.0 <14.7 % 11/26/2019 8:02 [facility] RDW-SD 47.3 <50.4 fl 11/26/2019 8:02 [facility] PLT 32(L) 141 - 377 K/cmm 11/26/2019 8:02 [facility] MPV 10.2 9.5 - 12.7 fl 11/26/2019 8:02 [facility] Type of Differential: Manual 11/26/2019 8:02 [facility] Blood VENOUS BLOOD / Unknown Venipuncture / Unknown 11/26/2019 7:15 EST 11/26/2019 7:48 EST Gaetano Lake MD PACKAGES & DNA PROBE ORDERABL ES Final Result Performing Organization Address [facility]/ZIP Co de Phone Number [facility] [address] [place] [address] * CREATININE (11/26/2019 7:15 EST) Creatinine 0.67 0.52 - 1.04 mg/dL 11/26/2019 8:24 EST [facility] eGFR 97 >60 mL/min/1.7 3m2 11/26/2019 8:24 EST [facility] Comment:eGFR calculated lobito coppola CKD-EPI equation for non- Americans. Multiply eGFR by 1.16 for patients. Blood VENOUS BLOOD / Unknown Venipuncture / Unknown 11/26/2019 7:15 EST 11/26/2019 7:48 EST Gaetano Lake MD CHEMISTRY & BLOOD GAS ORDERAB LES Final Result Performing Organization Address [facility] Co de Phone Number [facility] [address] [place] [address] * ELECTROLYTES (11/26/2019 7:15 EST) Sodium 137 136 - 145 mEq/L 11/26/2019 8:24 EST [facility] Potassium 3.9 3.5 - 5.0 mEq/L 11/26/2019 8:24 EST [facility] Chloride 105 96 - 110 mEq/L 11/26/2019 8:24 EST [facility] CO2 Total 24 22 - 32 mEq/L 11/26/2019 8:24 EST [facility] Blood VENOUS BLOOD / Unknown Venipuncture / Unknown 11/26/2019 7:15 EST 11/26/2019 7:48 EST Gaetano Lake MD CHEMISTRY & BLOOD GAS ORDERAB LES Final Result [facility] [address] [place] [address] * BACTERIAL CULTURE, BLOOD (11/26/2019 2:30 EST) Organism ID No Growth at 5 days 12/01/2019 2:46 EST [facility] Blood VENOUS BLOOD / Unknown Blood Culture / Unknown 11/26/2019 2:30 EST 11/26/2019 2:44 EST us Zully Salmon MD MICROBIOLOGY - GENERAL ORD ERABLES Final Result Performing Organization Address City/[facility]/ZIP Co de Phone Number [facility] [address] [place] [address] * BACTERIAL CULTURE, BLOOD (11/26/2019 2:30 EST) Organism ID No Growth at 5 days 12/01/2019 2:46 EST [facility] Blood VENOUS BLOOD / Unknown Blood Culture / Unknown 11/26/2019 2:30 EST 11/26/2019 2:44 EST Zully Salmon MD MICROBIOLOGY - GENERAL ORD ERABLES Final Result Performing Organization Address [facility] Co de Phone Number [facility] [address] [place] [address] * CT ABDOMEN PELVIS W CONTRAST (11/26/2019 0:30 EST) Anatomical Region Laterality Modality Computed Tomogra phy 11/26/2019 10:1 0 EST Impressions 11/26/2019 10:10 EST 1. ??Mild thickening of the terminal ileum with evidence of low-grade partial small bowel obstruction. Etiology of the ileal findings may be inflammatory or infectious. 2. ??Cirrhotic configuration of the liver with stigmata of portal hypertension including marked splenomegaly and portal colopathy. 3. ??Decreased size of the chronic portal venous thrombus. 4. ??Otherwise as above. Preliminary findings were discussed by phone with ZULLY SALMON by Sowmya Nelson MD on 11/26/2019 12:54 AM. There is a difference between this interpretation and that provided by the preliminary resident report which requires non-urgent notification. The findings were discussed with Dr. Alfredo on 11/26/2019 at 0900 hours. I have personally reviewed the images and the above interpretation and agree with the findings. Narrative 11/26/2019 10:[address] ABDOMEN PELVIS W CONTRAST ??11/26/2019 12:18 AM Signs and Symptoms/Comments: Epigastric/back pain. Technique: CT of the abdomen and pelvis was performed following the administration intravenous contrast; coronal and sagittal multiplanar reconstructions generated. Comparison: CT renal colic 10/21/2019. August 24, 2017 Findings: Lower chest: For findings within the chest, refer to CTA of the chest obtained concurrently. Hepatobiliary: Nodular hepatic contour consistent with history of cirrhosis. No focal hepatic lesion identified. Status post cholecystectomy. Biliary tree within normal limits. Spleen, pancreas, adrenal glands: The spleen is markedly enlarged. The pancreas is unremarkable. No pancreatic ductal dilatation. Tiny nodule in the left adrenal gland is unchanged from one year prior. Kidneys, ureters, bladder: The kidneys enhance symmetrically. No hydronephrosis, renal calculi, or concerning renal lesions are seen. Urinary bladder is unremarkable. Uterus, ovaries: The uterus is surgically absent. No adnexal masses are seen. Bowel: There is wall thickening and fat stranding involving primarily the cecum and ascending colon. There is mild distention of the small bowel with fecalization of contents in the distal ileum, with the ileum is mildly asymmetrically thick- walled. No discrete transition point is seen. Numerous diverticuli are seen in the sigmoid colon. Preserved bowel enhancement. Peritoneal cavity / Subperitoneal space: No free air or drainable collection. Small amount of ascites. Lymphovascular: Vascular calcifications are present in the abdominal aorta. Chronic thrombus from known prior portal venous thrombosis is present at the elizabeth splenic confluence, decreased in volume compared to 2017 CT. There is enlargement of the splenic vein and the intrahepatic portal veins. Abdominal wall: Hernia repair mesh is seen in the right anterior abdominal wall. Multiple surgical clips are seen at the midline. No bowel containing hernias are seen. Musculoskeletal: No concerning osseous lesion. Multilevel degenerative disc disease and facet arthropathy. Lan Analyst: No additional finding. Procedure Note Augie Jones MD - 11/26/2019 CT ABDOMEN PELVIS W CONTRAST 11/26/2019 12:18 AM Signs and Symptoms/Comments: Epigastric/back pain. Technique: CT of the abdomen and pelvis was performed following theadministration intravenous contrast; coronal and sagittal multiplanarreconstructions generated. Comparison: CT renal colic 10/21/2019. August 24, 2017 Findings: Lower chest: For findings within the chest, refer to CTA of the chestobtained concurrently. Hepatobiliary: Nodular hepatic contour consistent with history ofcirrhosis. No focal hepatic lesion identified. Status postcholecystectomy. Biliary tree within normal limits. Spleen, pancreas, adrenal glands: The spleen is markedly enlarged. Thepancreas is unremarkable. No pancreatic ductal dilatation. Tiny nodule inthe left adrenal gland is unchanged from one year prior. Kidneys, ureters, bladder: The kidneys enhance symmetrically. Nohydronephrosis, renal calculi, or concerning renal lesions are seen.Urinary bladder is unremarkable. Uterus, ovaries: The uterus is surgically absent. No adnexal masses areseen. Bowel: There is wall thickening and fat stranding involving primarily thececum and ascending colon. There is mild distention of the small bowelwith fecalization of contents in the distal ileum, with the ileum ismildly asymmetrically thick- walled. No discrete transition point is seen.Numerous diverticuli are seen in the sigmoid colon. Preserved bowelenhancement. Peritoneal cavity / Subperitoneal space: No free air or drainablecollection. Small amount of ascites. Lymphovascular: Vascular calcifications are present in the abdominalaorta. Chronic thrombus from known prior portal venous thrombosis ispresent at the elizabeth splenic confluence, decreased in volume compared [id number] CT. There is enlargement of the splenic vein and the intrahepaticportal veins. Abdominal wall: Hernia repair mesh is seen in the right anterior abdominalwall. Multiple surgical clips are seen at the midline. No bowel containinghernias are seen. Musculoskeletal: No concerning osseous lesion. Multilevel degenerativedisc disease and facet arthropathy. Lan Analyst: No additional finding. IMPRESSION 1. Mild thickening of the terminal ileum with evidence of low-gradepartial small bowel obstruction. Etiology of the ileal findings may beinflammatory or infectious. 2. Cirrhotic configuration of the liver with stigmata of portalhypertension including marked splenomegaly and portal colopathy. 3. Decreased size of the chronic portal venous thrombus. 4. Otherwise as above. Preliminary findings were discussed by phone with ZULLY Nelson MD on 11/26/2019 12:54 AM. There is a difference between this interpretation and that provided by thepreliminary resident report which requires non-urgent notification. Thefindings were discussed with Dr. Alfredo on 11/26/2019 at 0900 hours. I have personally reviewed the images and the above interpretation andagree with the findings. us Zully Salmon MD IMG CT ORDERABLES Final Re sult * CT ANGIO CHEST (11/26/2019 0:16 EST) Anatomical Region Laterality Modality Chest Computed Tomogra phy 11/26/2019 8:38 EST Impressions 11/26/2019 8:38 EST 1. ??No evidence of dissection, aneurysm, or other acute aortic abnormality. 2. ??Focal stenosis of the proximal left circumflex coronary artery estimated at less than 50%, not optimally evaluated on this examination. I have personally reviewed the images and the above interpretation and agree with the findings. Narrative 11/26/2019 8:[address] ANGIO CHEST ??11/26/2019 12:09 AM Clinical History/Comments: Chest pain, asymmetric upper extremity blood pressures. Technique: An initial mju-xbrmmbmk-[id number] helical CT acquisition of the chest with scans extending from lung apex through the bases was performed on a multidetector row scanner with a reconstructed slice thickness of 3 mm. ??This was immediately followed by a amebgtikwisevoh-ILT-eqkpd contrast-enhanced helical acquisition from the lung apex inferiorly to the lung bases following the intravenous administration of 80-100 cc of 350-370 mg% nonionic contrast at an injection rate of 4 cc/second, with scan acquisition timed by the use of bolus-tracking software targeted to the proximal descending aorta. ??Scans were reconstructed prospectively at 2.5-3.0 mm thickness at 2.0 mm intervals and retrospectively reconstructed at 75% of the R-R interval of the cardiac cycle with 0.9 mm thickness at 0.45 mm intervals in a soft tissue algorithm for three dimensional reconstructions and interpretation on a dedicated PACS workstation. The radiologist reviewed and adjusted the images for the 3D rendering on an independent workstation, as necessary, prior to interpretation. Exam description: CTA of the chest Comparison: Chest CT 07/17/2015.. Findings: Opacification of the aorta is good No dissection, aneurysm or other acute aortic abnormality is identified. Lower neck: No abnormalities. Chest wall soft tissues: No abnormalities. Mediastinum and leobardo: Top normal size bilateral paratracheal lymph nodes are unchanged. ??The esophagus appears normal. Heart and mediastinal vasculature: ??Heart size is normal. There is no pericardial effusion. Focal calcified and noncalcified atherosclerotic plaque in the proximal left circumflex coronary artery causes stenosis estimated at less than 50%, not optimally evaluated since this study was not tailored to assess the coronary arteries. Large airways: ??There is moderate diffuse airways thickening, as well as scattered distal airways secretions, likely smoking-related. Lungs: ??Slightly heterogeneous attenuation of the lung parenchyma likely represents a combination of very mild air trapping and respiratory bronchiolitis related to smoking. Pleura: No visible pleural abnormalities. Abdomen: For findings within the abdomen, refer to dedicated CT of the abdomen obtained concurrently. Bones: ??No acute fractures or concerning osseous lesions are seen. Procedure Note Serene Bolton MD - 11/26/2019 CT ANGIO CHEST 11/26/2019 12:09 AM Clinical History/Comments: Chest pain, asymmetric upper extremity bloodpressures. Technique: An initial qai-iyyuwxrv-miulaalq helical CT acquisition of the chest withscans extending from lung apex through the bases was performed on amultidetector row scanner with a reconstructed slice thickness of 3 mm.This was immediately followed by a cigynjtvuvqqaac-CZP-sxfoqjqspucjo-enhanced helical acquisition from the lung apex inferiorly to thelung bases following the intravenous administration of 80-100 cc [id number] mg% nonionic contrast at an injection rate of 4 cc/second, withscan acquisition timed by the use of bolus-tracking software targeted tothe proximal descending aorta. Scans were reconstructed prospectively at2.5-3.0 mm thickness at 2.0 mm intervals and retrospectively reconstructedat 75% of the R-R interval of the cardiac cycle with 0.9 mm thickness at0.45 mm intervals in a soft tissue algorithm for three dimensionalreconstructions and interpretation on a dedicated PACS workstation. Theradiologist reviewed and adjusted the images for the 3D rendering on an independent workstation, as necessary, prior to interpretation. Exam description: CTA of the chest Comparison: Chest CT 07/17/2015.. Findings: Opacification of the aorta is good No dissection, aneurysm or other acuteaortic abnormality is identified. Lower neck: No abnormalities. Chest wall soft tissues: No abnormalities. Mediastinum and leobardo: Top normal size bilateral paratracheal lymph nodesare unchanged. The esophagus appears normal. Heart and mediastinal vasculature: Heart size is normal. There is nopericardial effusion. Focal calcified and noncalcified atheroscleroticplaque in the proximal left circumflex coronary artery causes stenosisestimated at less than 50%, not optimally evaluated since this study wasnot tailored to assess the coronary arteries. Large airways: There is moderate diffuse airways thickening, as well asscattered distal airways secretions, likely smoking-related. Lungs: Slightly heterogeneous attenuation of the lung parenchyma likelyrepresents a combination of very mild air trapping and respiratorybronchiolitis related to smoking. Pleura: No visible pleural abnormalities. Abdomen: For findings within the abdomen, refer to dedicated CT of theabdomen obtained concurrently. Bones: No acute fractures or concerning osseous lesions are seen. IMPRESSION 1. No evidence of dissection, aneurysm, or other acute aorticabnormality. 2. Focal stenosis of the proximal left circumflex coronary arteryestimated at less than 50%, not optimally evaluated on this examination. I have personally reviewed the images and the above interpretation andagree with the findings. Zully Salmon MD [facility] [place]LES Final Re sult * LACTIC ACID (11/25/2019 23:41 EST) Lactic Acid 1.3 <=2.0 mmol/L 11/25/2019 23:57 EST [facility] Blood VENOUS BLOOD / Unknown Venipuncture / Unknown 11/25/2019 23:41 EST 11/25/2019 23:43 EST Zully Salmon MD CHEMISTRY & BLOOD GAS DEMI CARDENAS Final Result [facility] [address] [place] [id number] * (ABNORMAL) PROTIME (11/25/2019 23:30 EST) I.N.R. 1.3(H) 0.9 - 1.1 Ratio 11/26/2019 6:26 [facility] Pro Time 14.9(H) 10.3 - 13.4 secs 11/26/2019 6:26 [facility] Blood VENOUS BLOOD / Unknown Venipuncture / Unknown 11/25/2019 23:30 EST 11/25/2019 23:34 EST Narrative [facility] - 11/26/2019 6:26 EST Moderate Intensity Coumadin INR = 2.0-3.0 Adjustments in anticoagulant therapy dose should be based on the INR and NOT on the Protime. Gaetano Lake MD HEMATOLOGY & PF4 ORDERABLES F inal Result Performing Organization Address City/[facility]/ZIP Co de Phone Number [facility] [address] [place] [address] * C REACTIVE PROTEIN (11/25/2019 23:30 EST) C-Reactive Protein <7.0 <10.0 mg/L 11/26/2019 6:32 [facility] Blood VENOUS BLOOD / Unknown Venipuncture / Unknown 11/25/2019 23:30 EST 11/25/2019 23:34 EST Gaetano Lake MD CHEMISTRY & BLOOD GAS ORDERAB LES Final Result Performing Organization Address [facility] Co de Phone Number [facility] [address] [place] [address] * (ABNORMAL) DIFFERENTIAL, AUTOMATED MANUAL (11/25/2019 23:30 EST) % Neutrophils 83.3 % 11/26/2019 0:26 [facility] % Banded Neutrophils 0.9 % 11/26/2019 0:26 [facility] % Lymphocytes 10.5 % 11/26/2019 0:26 [facility] % Atypical Lymphocytes 0.9 % 11/26/2019 0:26 [facility] % Monocytes 4.4 % 11/26/2019 0:26 [facility] Ovalocytes 2+ 11/26/2019 0:26 [facility] Absolute Neutrophils 1.47(L) 2.20 - 8.85 K/cmm 11/26/2019 0:26 [facility] Absolute Bands 0.02 K/cmm 11/26/2019 0:26 [facility] Absolute Lymphocytes 0.19(L) 1.09 - 3.30 K/cmm 11/26/2019 0:26 [facility] Absolute Atypical Lymphocytes 0.02 K/cmm 11/26/2019 0:26 [facility] Absolute Monocytes 0.08(L) 0.10 - 0.80 K/cmm 11/26/2019 0:26 [facility] Blood VENOUS BLOOD / Unknown Venipuncture / Unknown 11/25/2019 23:30 EST 11/25/2019 23:34 EST us Zully Salmon MD HEMATOLOGY & PF4 ORDERABLE S Final Result Performing Organization Address City/[facility]/ZIP Co de Phone Number [facility] [address] [place] [address] * TROPONIN I (11/25/2019 23:30 EST) Troponin I (ng/mL) <0.034 <0.034 ng/mL 11/26/2019 0:04 [facility] Blood VENOUS BLOOD / Unknown Venipuncture / Unknown 11/25/2019 23:30 EST 11/25/2019 23:34 EST Narrative [facility] - 11/26/2019 0:04 EST The results of this assay can be falsely lowered due to the consumption of Biotin. us Zully Salmon MD CHEMISTRY & BLOOD GAS ORDE THERESA Final Result [facility] [address] [place] [address] * MAGNESIUM (11/25/2019 23:30 EST) Magnesium 1.9 1.7 - 2.8 mg/dL 11/25/2019 23:53 [facility] Blood VENOUS BLOOD / Unknown Venipuncture / Unknown 11/25/2019 23:30 EST 11/25/2019 23:34 EST Zully Salmon MD CHEMISTRY & BLOOD GAS ORDE RABLES Final Result Performing Organization Address [facility]/ZIP Co de Phone Number [facility] [address] [place] [address] * LIPASE (11/25/2019 23:30 EST) Lipase 72 <251 U/L 11/25/2019 23:53 [facility] Blood VENOUS BLOOD / Unknown Venipuncture / Unknown 11/25/2019 23:30 EST 11/25/2019 23:34 EST Zully Salmon MD CHEMISTRY & BLOOD GAS ORDE RABLES Final Result Performing Organization Address [facility] de Phone Number [facility] [address] [place] [address] * (ABNORMAL) COMPREHENSIVE METABOLIC PANEL (CMP) (11/25/2019 23:30 EST) Sodium 139 136 - 145 mEq/L 11/25/2019 23:59 [facility] Potassium 4.5 3.5 - 5.0 mEq/L 11/25/2019 23:59 [facility] Chloride 106 96 - 110 mEq/L 11/25/2019 23:59 [facility] CO2 Total 26 22 - 32 mEq/L 11/25/2019 23:59 [facility] Glucose 108(H) 70 - 100 mg/dL 11/25/2019 23:59 [facility] BUN 11 10 - 26 mg/dL 11/25/2019 23:59 [facility] Creatinine 0.77 0.52 - 1.04 mg/dL 11/25/2019 23:59 [facility] eGFR 85 >60 mL/min/1.7 3m2 11/25/2019 23:59 [facility] Comment:eGFR calculated lobito coppola CKD-EPI equation for non- Americans. Multiply eGFR by 1.16 for patients. Total Protein 6.8 6.3 - 8.2 g/dL 11/25/2019 23:59 [facility] Albumin 4.1 3.4 - 4.9 g/dL 11/25/2019 23:59 [facility] Alkaline Phosphatase 112 38 - 126 U/L 11/25/2019 23:59 [facility] AST 24 15 - 46 U/L 11/25/2019 23:59 [facility] ALT 19 <35 U/L 11/25/2019 23:59 [facility] Bilirubin, Total 1.0 <1.4 mg/dL 11/25/19 20 23:59 [facility] Calcium 9.1 8.5 - 10.5 mg/dL 11/25/2019 23:59 [facility] Calculated Calcium 9.0 8.5 - 10.5 mg/dL 11/25/2019 23:59 [facility] Blood VENOUS BLOOD / Unknown Venipuncture / Unknown 11/25/2019 23:30 EST 11/25/2019 23:34 EST Zully Salmon MD CHEMISTRY & BLOOD GAS ORDDoug [facility] Final Result Performing Organization Address City/State/[facility] Co de Phone Number [facility] [address] [place] [phone] * (ABNORMAL) COMPLETE BLOOD COUNT AND DIFFERENTIAL (11/25/2019 23:30 EST) WBC 1.77(L) 4.00 - 12.40 K/cmm 11/26/2019 0:26 [facility] RBC 4.46 3.86 - 5.04 M/cmm 11/26/2019 0:26 [facility] Hemoglobin 13.8 11.6 - 15.2 gm/dL 11/26/2019 0:26 [facility] HCT 41.0 34.9 - 44.4 % 11/26/2019 0:26 [facility] MCV 92 81 - 98 fl 11/26/2019 0:26 [facility] MCH 30.9 26.7 - 33.3 pg 11/26/2019 0:26 [facility] MCHC 33.7 32.1 - 35.9 gm/dL 11/26/2019 0:26 [facility] RDW-CV 14.0 <14.7 % 11/26/2019 0:26 [facility] RDW-SD 47.1 <50.4 fl 11/26/2019 0:26 [facility] PLT 41(L) 141 - 377 K/cmm 11/26/2019 0:26 [facility] MPV 10.2 9.5 - 12.7 fl 11/26/2019 0:26 [facility] Type of Differential: Manual 11/26/2019 0:26 [facility] Blood VENOUS BLOOD / Unknown Venipuncture / Unknown 11/25/2019 23:30 EST 11/25/2019 23:34 EST us Zully Salmon MD PACKAGES & DNA PROBE ORDER YANN Final Result [facility] [address] [place] [address] * BLOOD BANK HOLD (11/25/2019 23:30 EST) Hold BB Spec will exp at 23:59, 3 days from collect date 11/25/2019 23:51 EST [facility] Blood VENOUS BLOOD / Unknown Venipuncture / Unknown 11/25/2019 23:30 EST 11/25/2019 23:37 EST us Zully Salmon MD BLOOD BANK TESTS Final Res ult [facility] [address] [place] [address] * HOLD SST (11/25/2019 23:30 EST) Hold Hold 11/26/2019 0:45 EST [facility] Blood VENOUS BLOOD / Unknown Venipuncture / Unknown 11/25/2019 23:30 EST 11/25/2019 23:34 EST us Zully Salmon MD LAB INFO SERVICE AND SUPPO RT & PHONE RESULT Final Result [facility] [address] [place] [address] * HOLD LAVENDER TOP (11/25/2019 23:30 EST) Hold Hold 11/26/2019 0:45 EST [facility] Blood VENOUS BLOOD / Unknown Venipuncture / Unknown 11/25/2019 23:30 EST 11/25/2019 23:34 EST us Zully Salmon MD LAB INFO SERVICE AND SUPPO RT & PHONE RESULT Final Result Performing Organization Address [facility] Co de Phone Number [facility] [address] [place] [address] * HOLD GREEN TOP (11/25/2019 23:30 EST) Hold Hold 11/26/2019 0:45 EST [facility] Blood VENOUS BLOOD / Unknown Venipuncture / Unknown 11/25/2019 23:30 EST 11/25/2019 23:34 EST us Zully Salmon MD LAB INFO SERVICE AND SUPPO RT & PHONE RESULT Final Result Performing Organization Address City/[facility]/ZIP Co de Phone Number [facility] [address] [place] [address] * HOLD BLUE TOP (11/25/2019 23:30 EST) Hold Hold 11/26/2019 0:45 EST [facility] Blood VENOUS BLOOD / Unknown Venipuncture / Unknown 11/25/2019 23:30 EST 11/25/2019 23:34 EST us Zully Salmon MD LAB INFO SERVICE AND SUPPO RT & PHONE RESULT Final Result [facility] [address] [place] [id number] * EKG 12-LEAD (11/25/2019 23:24 EST) 11/25/2019 23:2 4 EST Narrative [facility] EKG - 12/05/2019 10:19 EST ?[facility] ? Test Date: ?2019-11-25 Pat Name: ? PHYLISS OBOTHE ?Department: ?? ED ? Room: ? AC04 Gender: ? Female ? Car Manager: ?? [id number] : ?1960 ? Requested By: CLARENCE Ramos Order Number: [id number] ? Reading MD: ?? LAURENT MACK ? Measurements Intervals ?[place] ? Rate: ? 93 ? P: ?76 [place]: ? 153 ?QRS: ?81 QRSD: ? 88 ? T: ?52 QT: ? 353 ? QTc: ?441 ? Interpretive Statements SINUS RHYTHM Compared to ECG 10/03/2019 13:21:58 Sinus bradycardia no longer present Sinus arrhythmia no longer present T-wave abnormality no longer present I reviewed the tracing and have either agreed or edited the findings in this report. Electronically Signed On 12-05-2019 10:19:02 EST by LAURENT MACK . Procedure Note Laurent Mack MD - 12/05/2019 [facility] Test Date: 2019-11-25 Pat Name: TARA BOOTHE Department: ED Room: [facility] Gender: Female Car Manager: [id number] : 1960 Requested By: CLARENCE Ramos Order Number: [id number] Jose MD: LAURENT MACK Measurements Intervals [place] Rate: 93 P: 76 [place]: 153 QRS: 81 QRSD: 88 T: 52 QT: 353 QTc: 441 Interpretive Statements SINUS RHYTHM Compared to ECG 10/03/2019 13:21:58 Sinus bradycardia no longer present Sinus arrhythmia no longer present T-wave abnormality no longer present I reviewed the tracing and have either agreed or edited the findings inthis report. Electronically Signed On 12-05-2019 10:19:02 EST by ERVIN . us Zully Salmon MD CARDIAC ECG ORDERABLES Fin al Result [facility] EKG documented in this encounter Visit Diagnoses Diagnosis Partial small bowel obstruction (HCC-CMS)- Primary Unspecified intestinal obstruction Colitis Other and unspecified noninfectious gastroenteritis and colitis Pancytopenia (HCC-CMS) Other pancytopenia Hepatic cirrhosis, unspecified hepatic cirrhosis type, unspecified whether ascites present (HCC-CMS) Ileus (HCC-CMS) Paralytic ileus documented in this encounter Admitting Diagnoses Diagnosis Colitis Other and unspecified noninfectious gastroenteritis and colitis documented in this encounter Administered Medications Inactive Administered Medications - up to 3 most recent administrations Medication Order MAR Action Action Date Dose Rate Site acetaminophen (TYLENOL) tablet 1,000 mg 1,000 mg, oral, 3 TIMES DAILY, First dose on Tue11/27/19 at 1100, Until Discontinued, Routine Given 11/27/2019 11:02 EST 1,000 mg baclofen (LIORESAL) tablet 5 mg 5 mg, oral, 3 TIMES DAILY, First dose on Tue11/27/19 at 0900, Until Discontinued, Routine Given 11/27/2019 9:03 EST 5 mg budesonide-formoterol HFA (SYMBICORT) 160-4.5 mcg/actuation inhaler 2 Puff 2 Puff, inhalation, DAILY, First dose on Tue11/26/19 at 0900, Until Discontinued, Routine Given 11/27/2019 9:03 EST 2 Puffs Given 11/26/2019 9:04 EST 2 Puffs cefTRIAXone (ROCEPHIN) 1,000 mg in sodium chloride (NS MBP) 50 mL IVPB 1,000 mg, intravenous, Administer over 30 Minutes, NOW X1, 1 dose, On Tue11/26/19 at 0230, STAT Given 11/26/2019 3:39 EST 1,000 mg fentaNYL citrate (PF) injection 100 mcg 100 mcg, intravenous, NOW X1, 1 dose, On Tue11/25/19 at 2330, STAT Given 11/25/2019 23:32 EST 100 mcg HYDROmorphone (PF) (DILAUDID) 0.5 mg/0.5 mL syringe 0.2 mg 0.2 mg, intravenous, EVERY 4 HOURS PRN, Starting on Tue11/26/19 at 1130, Until Tue11/27/19 at 1036, Pain, Routine Given 11/27/2019 9:14 EST 0.2 mg Given 11/27/2019 5:06 EST 0.2 mg Given 11/27/2019 0:43 EST 0.2 mg HYDROmorphone (PF) (DILAUDID) 0.5 mg/0.5 mL syringe 0.25 mg 0.25 mg, intravenous, EVERY 4 HOURS PRN, Starting on Tue11/26/19 at 0341, Until Tue11/26/19 at 0922, Pain, Routine Given 11/26/2019 8:04 EST 0.25 mg Given 11/26/2019 3:59 EST 0.25 mg iohexol (OMNIPAQUE 350) solution 100 mL 100 mL, intravenous, Once in imaging, 1 dose, Starting on Tue11/26/19 at 0009, Until Tue11/26/19 at 0016, Routine, Imaging Protocol Orders Given 11/26/2019 0:16 EST 100 mL ketOROLAC (TORADOL) injection 15 mg 15 mg, intravenous, EVERY 6 HOURS, 3 doses, First dose on Tue11/26/19 at 1730, Last dose on Tue11/27/19 at 0530, Routine Given 11/26/2019 18:13 EST 15 mg lactated ringers (LR) infusion at 150 mL/hr, 1,000 mL, intravenous, NOW X1, 1 dose, On Tue11/26/19 at 0400, Routine Given 11/26/2019 4:38 EST 1,000 mL 150 mL/hr levothyroxine (SYNTHROID) tablet 25 mcg 25 mcg, oral, DAILY BEFORE BREAKFAST, First dose on Tue11/26/19 at 0700, Until Discontinued, Routine levothyroxine 12.5 mcg IV syringe 12.5 mcg, intravenous, DAILY BEFORE BREAKFAST, First dose on Tue11/26/19 at 0700, Until Discontinued, Routine metronidazole (FLAGYL) infusion 500 mg 500 mg, intravenous, Administer over 30 Minutes, EVERY 8 HOURS, 21 doses, First dose on Tue11/26/19 at 0400, Last dose on Tue12/02/19 at 2000, Routine Given 11/26/2019 4:38 EST 500 mg ondansetron (PF) (ZOFRAN) injection 4 mg 4 mg, intravenous, EVERY 4 HOURS PRN, Starting on Tue11/26/19 at 0341, Until Tue11/27/19 at 1614, Nausea, Routine Given 11/27/2019 9:11 EST 4 mg Given 11/27/2019 5:06 EST 4 mg Given 11/27/2019 0:43 EST 4 mg oxyCODONE (ROXICODONE) immediate release tablet 5 mg 5 mg, oral, NOW X1, 1 dose, On Tue11/26/19 at 0115, STAT Given 11/26/2019 1:13 EST 5 mg traMADol (ULTRAM) tablet 50 mg 50 mg, oral, EVERY 6 HOURS PRN, Starting on Tue11/27/19 at 1037, Until Tue11/27/19 at 1614, Pain, Routine Given 11/27/2019 11:02 EST 50 mg traZODone (DESYREL) tablet 150 mg 150 mg, oral, AT BEDTIME PRN, Starting on Tue11/26/19 at 0341, Until Tue11/27/19 at 1614, Sleep, Routine Given 11/26/2019 20:15 EST 150 mg documented in this encounter Discontinued Medications Medication Sig Discontinue Reason Start Date End Da te omeprazole (PRILOSEC) 20 mg capsule Take 20 mg by mouth daily. Therapy completed 11/26/2019 fluticasone (FLOVENT) 110 mcg/actuation inhaler Inhale 110 mcg as directed 2 times daily. Alternate therapy 11/26/2019 traMADol (ULTRAM) 50 mg tablet Take 1 Tab by mouth at bedtime as needed for Pain. Daily Max: 50 mg 08/17/2019 11/27/2019 documented as of this encounter Historical Medications * This list may reflect changes made after this encounter. ondansetron (ZOFRAN) 4 mg tablet Take 4 mg by mouth 2 times daily as needed. 11/07/2019 07/15/2020 SYMBICORT 160-4.5 mcg/actuation HFA aerosol inhaler inhaler Inhale 2 Puffs as directed daily. 10/05/2019 06/20/2020 added in this encounter Active and Recently Administered Medications Times are shown in EST. Scheduled Medication Order 11/25/2019 11/26/2019 11/27/2019 acetaminophen (TYLENOL) tablet 1,000 mg 1,000 mg, oral, 3 TIMES DAILY, First dose on Tue11/27/19 at 1100, Until Discontinued, Routine 1102 (Given - Provider: Kimberley Dinh, KENN) baclofen (LIORESAL) tablet 5 mg (CANCELED) 5 mg, oral, 3 TIMES DAILY, First dose on Tue11/27/19 at 0900, Until Discontinued, Routine 09 (Given - Provider: Kimberley Dinh RN) budesonide-formoterol HFA (SYMBICORT) 160-4.5 mcg/actuation inhaler 2 Puff 2 Puff, inhalation, DAILY, First dose on Tue11/26/19 at 0900, Until Discontinued, Routine 09 (Given - Provider: Fatoumata Roberto RN) 09 (Given - Provider: Kimberley Dinh RN) cefTRIAXone (ROCEPHIN) 1,000 mg in sodium chloride (NS MBP) 50 mL IVPB (CANCELED) 1,000 mg, intravenous, Administer over 30 Minutes, NOW X1, 1 dose, On Tue11/26/19 at 0230, STAT 0339 (Given - Provider: Jenna Gonzalez RN) fentaNYL citrate (PF) injection 100 mcg (COMPLETED) 100 mcg, intravenous, NOW X1, 1 dose, On Tue11/25/19 at 2330, STAT 2332 (Given - Provider: Mohan Zaidi RN) iohexol (OMNIPAQUE 350) solution 100 mL (COMPLETED) 100 mL, intravenous, Once in imaging, 1 dose, Starting on Tue11/26/19 at 0009, Until Tue11/26/19 at 0016, Routine, Imaging Protocol Orders 0016 (Given - Provider: Silvana Chavez) ketOROLAC (TORADOL) injection 15 mg (CANCELED) 15 mg, intravenous, EVERY 6 HOURS, 3 doses, First dose on Tue11/26/19 at 1730, Last dose on Tue11/27/19 at 0530, Routine 1813 (Given - Provider: Fatoumata Roberto RN)2320 (Not Given - Provider: Dana Lewis RN - Reason: Patient/family refused) 0507 (Not Given - Provider: Dana Lewis RN - Reason: Patient/family refused) lactated ringers (LR) infusion (COMPLETED) at 150 mL/hr, 1,000 mL, intravenous, NOW X1, 1 dose, On Tue11/26/19 at 0400, Routine 0438 (Given - Provider: Jenna Gonzalez RN) levothyroxine (SYNTHROID) tablet 25 mcg(Linked Group 1) 25 mcg, oral, DAILY BEFORE BREAKFAST, First dose on Tue11/26/19 at 0700, Until Discontinued, Routine 0613 (Not Given - Provider: Jenna Gonzalez RN - Reason: Patient/family refused) 0644 (Not Given - Provider: Dana Lewis RN - Reason: Patient/family refused)0904 (See Alternative - Provider: Kimberley Dinh RN) levothyroxine 12.5 mcg IV syringe(Linked Group 1) 12.5 mcg, intravenous, DAILY BEFORE BREAKFAST, First dose on Tue11/26/19 at 0700, Until Discontinued, Routine 0613 (See Alternative - Provider: Jenna Gonzalez RN) 0644 (See Alternative - Provider: Dana Lewis RN)0904 (Not Given - Provider: Kimberley Dinh RN - Reason: Patient/family refused) metronidazole (FLAGYL) infusion 500 mg (CANCELED) 500 mg, intravenous, Administer over 30 Minutes, EVERY 8 HOURS, 21 doses, First dose on Tue11/26/19 at 0400, Last dose on Tue12/02/19 at 2000, Routine 0438 (Given - Provider: Jenna Gonzalez RN) oxyCODONE (ROXICODONE) immediate release tablet 5 mg (COMPLETED) 5 mg, oral, NOW X1, 1 dose, On Tue11/26/19 at 0115, STAT 0113 (Given - Provider: Mohan Zaidi RN) PRN Medication Order 11/25/2019 11/26/2019 11/27/2019 albuterol inhaler 2 Puff 2 Puff, inhalation, EVERY 4 HOURS PRN, Starting on Tue11/26/19 at 0341, Until Tue11/27/19 at 1614, Wheezing, Routine HYDROmorphone (PF) (DILAUDID) 0.5 mg/0.5 mL syringe 0.2 mg (CANCELED) 0.2 mg, intravenous, EVERY 4 HOURS PRN, Starting on Tue11/26/19 at 1130, Until Tue11/27/19 at 1036, Pain, Routine 1213 (Given - Provider: Fatoumata Roberto RN)1609 (Given - Provider: Fatoumata Roberto RN)2015 (Given - Provider: Dana Lewis RN) 004 (Given - Provider: Dana Lewis RN)0506 (Given - Provider: Dana Lewis RN)0914 (Given - Provider: Kimberley Dinh RN) HYDROmorphone (PF) (DILAUDID) 0.5 mg/0.5 mL syringe 0.25 mg (CANCELED) 0.25 mg, intravenous, EVERY 4 HOURS PRN, Starting on Tue11/26/19 at 0341, Until Tue11/26/19 at 0922, Pain, Routine 0359 (Given - Provider: Jenna Gonzalez RN)0804 (Given - Provider: Kimberley Dinh RN) lidocaine (PF) 10 mg/mL (1 %) injection 2 mg 2 mg, intradermal, PRN, 4 doses, Starting on Tue11/26/19 at 0341, Until Tue11/27/19 at 1614, peripheral intravenous catheter placement, Routine ondansetron (PF) (ZOFRAN) injection 4 mg 4 mg, intravenous, EVERY 4 HOURS PRN, Starting on Tue11/26/19 at 0341, Until Tue11/27/19 at 1614, Nausea, Routine 0359 (Given - Provider: Jenna Gonzalez RN)0801 (Given - Provider: Kimberley Dinh RN)1213 (Given - Provider: Fatoumata Roberto RN)1609 (Given - Provider: Fatoumata Roberto RN)2014 (Given - Provider: Dana Lewis RN) 004 (Given - Provider: Dana Lewis RN)0506 (Given - Provider: Dana Lewis RN)0911 (Given - Provider: Kimberley Dinh RN) traMADol (ULTRAM) tablet 50 mg 50 mg, oral, EVERY 6 HOURS PRN, Starting on Tue11/27/19 at 1037, Until Tue11/27/19 at 1614, Pain, Routine 1102 (Given - Provid er: Kimberley Dinh RN) traZODone (DESYREL) tablet 150 mg 150 mg, oral, AT BEDTIME PRN, Starting on Tue11/26/19 at 0341, Until Tue11/27/19 at 1614, Sleep, Routine 2014 (Given - Provider: Dana Lewis RN) Linked Groups Order Group 1: levothyroxine 12.5 mcg IV syringeJump to med 12.5 mcg, intravenous, DAILY BEFORE BREAKFAST, First dose on Tue11/26/19 at 0700, Until Discontinued, Routine Or levothyroxine (SYNTHROID) tablet 25 mcgJump to med 25 mcg, oral, DAILY BEFORE BREAKFAST, First dose on Tue11/26/19 at 0700, Until Discontinued, Routine documented in this encounter Orders Medications Ordered That Luc ht Not Have Been Administered Count Last Ordered Date First Ordered Date albuterol inhaler 2 Puff 1 11/26/2019 cefTRIAXone (ROCEPHIN) 1,000 mg in sodium chloride (NS MBP) 50 mL IVPB 2 11/26/2019 levothyroxine (SYNTHROID) tablet 25 mcg 2 0 11/26/2019 levothyroxine 12.5 mcg IV syringe 1 020 lidocaine (PF) 10 mg/mL (1 % ) injection 2 mg 1 11/26/2019 metronidazole (FLAGYL) infusion 500 mg 1 Diet Count Last Ordered Date First Orde red Date DISCHARGE DIET 1 11/27/2019 Nursing Count Last Ordered Date First Orde red Date ACTIVITY INSTRUCTIONS 1 11/27/2019 BATHING INSTRUCTIONS 1 11/27/2019 CONTRAINDICATION TO ANTICOAG ULATION THERAPY 1 11/26/2019 IV Count Last Ordered Date First Orde red Date IV REQUEST 1 11/26/2019 Admission Count Last Ordered Date First Orde red Date ADMIT TO INPATIENT 1 11/26/2019 Transfer Count Last Ordered Date First Orde red Date ED BED REQUEST 1 11/26/2019 TEACHING SERVICE 1 11/26/2019 Discharge Count Last Ordered Date First Orde red Date DISCHARGE PATIENT 1 11/27/2019 Legal Count Last Ordered Date First Orde red Date MISCELLANEOUS DISCHARGE INSTRUCTIONS 1 05/2020 documented in this encounter Care Teams Hydrometeorologist Relationship Specialty Start Date End Date Alma Farfan MD PCP - General 03/14/19 05/21/20 documented as of this encounter
--- OUTSIDE RECORDS SUMMARY | 2024-11-22 17:24 | XMS_ITS | Encounter Summary ---
Author Organization [facility] Address [address] [place] [address] Care Team Providers Care Oil Refinery Operator Name Role Phone Alma Farfan MD Primary Care Provider [phone] Encounter Details Date Type Department Care Team (Latest Contact Info) Description 10/03/2019 Travel Social History Tobacco Use Types Packs/Day [...] 13:00 EST Office Visit [facility] Ophthalmology - [address] [id number] Gagandeep Rome MD [address] [place] [address] 5 [place] [id number] 02/11/2025 13:30 EDT Telemedicine [facility] Hematology & Oncology [address] [phone] Dana Padilla MD [address] [place] [address] 2 [place] [phone] documented as of this encounter Visit Diagnoses Not on filedocumented in this encounter Care Teams Oil Refinery Operator Relationship Specialty Start Date End Date Alma Farfan MD PCP - General 03/14/19 05/21/20 documented as of this encounter
--- OUTSIDE RECORDS SUMMARY | 2024-11-22 17:24 | XMS_ITS | Encounter Summary ---
Author Organization [facility] Address [address] [place] [address] Care Team Providers Care Jelly Maker Name Role Phone Alma Farfan MD Primary Care Provider [phone] [phone] Reason for Referral * Consult (Routine) - Closed Specialty Diagnoses / Procedures [facility] Referred To Contact Orthopedic Surgery Diagnoses Sprain of right knee, unspecified ligament, initial encounter Elle Nino NP Phone: tel: fax: [facility] [place] [address] [place] [address] Phone: tel: fax: Referral ID Status Reason Start Date Expiration Date V isits Requested Visits Authorized [id number] Closed Specialty Services Required 08/17/2019 1 1 Question Answer Reason for Request: right knee pain - hx of replacement > 10 years ago Reason for Visit * Reason Comments Knee Pain right knee pain (his tory of 6 surgeries on knee) 3-4 days ago twisting injury walking down some steps Encounter Details Date Type Department Care Team (Latest Contact Info) Description 08/17/2019 13:46 EDT - 08/17/2019 17:23 EDT Hospital Encounter [facility] - Bibi Freddy [place] [address] [place] [address] Elle Nino NP [address] [place] [address] Unknown, Provider, Sprain of right knee, unspecified ligament, initial encounter (Primary Dx) Discharge Disposition: Home [...] Sign Reading Time Taken Comments Blood Pressure 149/64 08/17/2019 1408 EDT Pulse 71 08/17/2019 1408 EDT Temperature 36.4 ??C (97.5 ??F) 08/17/2019 1408 EDT Respiratory Rate 18 08/17/2019 1408 EDT Oxygen Saturation - - Inhaled Oxygen [...] Date of Assessment Author No 03/03/2018 9:28 EDT Inderjit Queen RN documented as of this encounter Mental Status * Because of a physical, mental, or emotional condition, does this person have serious difficulty concentrating, remembering, or making decisions? Answer Entry Date Author No 03/03/2018 9:28 EDT Inderjit Queen RN documented in this encounter Discharge Diagnoses Diagnosis S83.91XA Sprain of unspecified site of right knee, initial encounter-S83.91XA[ICD-10-CM] documented in this encounter Discharge Instructions * Attachments The following attachments cannot be sent through Care Everywhere. * Knee Sprain (Ukrainian) * RICE: General Info (Ukrainian) documented in this encounter Medications at Time [...] Daily Max: 50 mg 6 Tab 08/17/2019 0 documented in this encounter Discharge Disposition Disposition Code Departure Means Destination Home or Self Care documented in this encounter ED Notes * Allison Farley RN - 08/17/2019 1545 EDT Pt returned from radiology. * Mica Vega, Brenda Gallegos - 08/17/2019 1532 EDT DOS: 08/17/2019 Chief Complaint Patient presents with ??? Knee Pain right knee pain (history of 6 surgeries on knee) 3-4 days ago twisting injury walking down some steps The patient is a 59 y.o. female who presents today with Knee Pain (right knee pain (history of 6 surgeries on knee) 3-4 days ago twisting injury walking down some steps) Patient with a history of chronic pancytopenia of unclear etiology (followed at [facility]), cirrhosis, and bilateral knee replacements (done in [facility] > 10 years ago), presents for a 2 week history of right knee pain, with the knee buckling on her 2 days ago while she was walking. She denies any significant injury. She has taken nothing for pain. Review of Systems No current facility-administered medications for this encounter. Current Outpatient Medications Medication Sig Dispense Refill ??? albuterol 90 mcg/actuation inhaler Inhale 2 Puffs as directed every 4 hours. ??? ERGOCALCIFEROL, VITAMIN D2, (VITAMIN D ORAL) Take by mouth. ??? ferrous gluconate (FERGON) 324 mg (38 mg iron) tablet Take 324 mg by mouth 3 times daily with meals. ??? fluticasone (FLOVENT) 110 mcg/actuation inhaler Inhale 110 mcg as directed 2 times daily. ??? LEVOTHYROXINE SODIUM (LEVOTHYROXINE ORAL) Take 25 mcg by mouth daily. Unknown dose ??? omeprazole (PRILOSEC) 20 mg capsule Take 20 mg by mouth daily. ??? traMADol (ULTRAM) 50 mg tablet Take 1 Tab by mouth at bedtime as needed for Pain. Daily Max: 50mg 6 Tab 0 ??? traZODone (DESYREL) 100 mg tablet Take 100 [...] Active Problem List Diagnosis Date Noted ??? Influenza A 01/03/2019 ??? Cirrhosis of liver (HCC-CMS) 09/30/2017 Likely secondary to NAFLD ??? Obesity, Class II, BMI 35-39.9 09/30/2017 Lost about 80 lbs over last 2 years ??? Hypothyroidism 09/30/2017 ??? Chronic back pain 09/09/2017 Taking oxycodone and gabapentin ??? Splenic vein thrombosis 08/24/2017 ??? Hematuria, gross 08/24/2017 Evaluated by urology and getting biopsy later in Sep 2017 ??? Hypersplenism syndrome ??? Drug-seeking behavior Per Dr Amelia Tijerina and notes from [facility] patient misconstrued information to several providers about multiple concurrent opiate prescription ??? Pancytopenia (HCC-CMS) 07/18/2015 ??? Mild persistent asthma without complication 07/18/2015 Past Medical History: Diagnosis Date ??? Anemia ??? Anxiety ??? Asthma ??? Bleeding disorder (HCC-CMS) ??? Bursitis right shoulder ??? C. difficile colitis 07/25/2015 Hospitalized after kidney stone removal ??? Chronic kidney disease ??? Cirrhosis of liver (HCC-CMS) ??? Clotting disorder (HCC-CMS) ??? Depression ??? Drug-seeking behavior Per Dr Amelia Tijerina and notes from [facility] patient misconstrued information to several providers about multiple concurrent opiate prescriptions ??? Environmental allergies ??? GERD (gastroesophageal reflux disease) ??? Heartburn ??? Hemorrhagic disorder (HCC-CMS) ??? Hypersplenism syndrome ??? Rheumatoid arthritis ??? Thyroid disease Social History Tobacco Use ??? Smoking status: Current Every Day Smoker Packs/day: 1.00 Years: 20.00 Pack years: 20.00 ??? Smokeless tobacco: Never Used Substance Use Topics ??? Alcohol use: No Alcohol/week: 0.0 standard drinks ??? Drug use: No Family History Problem Relation Age of Onset ??? Cancer Maternal Grandmother ??? Diabetes Mother ??? Coronary Artery Disease Father ??? Clotting Disorder Father ??? Diabetes Brother BP (!) 149/64 Pulse 71 Temp 97.5 ??F (36.4 ??C) (Temporal) Resp 18 Physical Exam Constitutional: She is oriented to person, place, and time. She appears well- developed and well-nourished. HENT: Head: Atraumatic. Pulmonary/Chest: Effort normal. Musculoskeletal: She exhibits edema and tenderness. She exhibits no deformity. Right knee: She exhibits abnormal patellar mobility (some clicking with lateral movement of the patella.) and bony tenderness (overlying the patella.). She exhibits normal range of motion, no swelling, no effusion, no ecchymosis, no deformity, no laceration, no erythema, normal alignment, no LCL laxity, normal meniscus and no MCL laxity. Tenderness found. Medial joint line, lateral joint line, MCL and LCL tenderness noted. No patellar tendon tenderness noted. Right lower leg: Normal. Neurovascular status is intact in the RLE. Neurological: She is alert and oriented to person, place, and time. Skin: Skin is warm and dry. Psychiatric: She has a normal mood and affect. Nursing note and vitals reviewed. Consult orders: None PCP: Alma Farfan No results found for this visit on 08/17/19. Radiology orders: KNEE 1 OR 2 VIEWS Imaging Results KNEE 1 OR 2 VIEWS (Final result) Result time 08/17/19 16:16:16 Procedure changed from KNEE 4 OR MORE VIEWS Final result Narrative: KNEE 1 OR 2 VIEWS 08/17/2019 3:47 PM Clinical History/Comments: right knee pain HX of replacement > 10 years ago. Findings: 2 views of the right knee. Compared to 8 months prior frontal views, hardware appears similar and intact no bony fracture or dislocation is seen no joint effusion is seen. Preliminary result Narrative: PRELIMINARY REPORT KNEE 1 OR 2 VIEWS 08/17/2019 3:47 PM Clinical History/Comments: right knee pain HX of replacement > 10 years ago. Findings: 2 views of the right knee. Compared to 8 months prior frontal views, hardware appears similar and intact no bony fracture or dislocation is seen no joint effusion is seen. No orders to display Procedures URGENT CARE COURSE A medical screening exam was performed. Likely ligamentous injury - knee immobilizer, ice and elevation. Cannot use NSAIDS given history of pancytopenia, so a RX for 6 tramadol was given for patient to use at night. She knows that should she require additional pain medication, she will have to be seen by her PCP. She reports having taken Tramadol in the past with no allergic reaction. ASSESSMENT AND PLAN Final diagnoses: Sprain of right knee, unspecified ligament, initial encounter Dr. Erika Carmichael was available for consultation during my care of this patient. DISPOSITION: Discharged The patient's pain was managed to an adequate level weighing risk vs. benefit of further medications. Upon departure from [facility], the patient's pain was 8 on a zero to ten scale. Any further pain treatment will be at the discretion of the provider following up with the patient based on their clinical assessment . Condition at departure from the [facility] : Stable MDM 08/17/2019 20:15 * Rajiv Jacobson RN - 08/17/2019 1413 EDT See triage note documented in this encounter Plan of Treatment Upcoming Encounters Date Type Department Care Team (Late st Contact Info) Description 01/04/2025 13:00 EST Office Visit [facility] Ophthalmology - [address] [address] Gagandeep Rome MD [address] [place] [address], [facility] [address] [place] [phone] 02/11/2025 13:30 EDT Telemedicine [facility] Hematology & Oncology [address] [address] Dana Padilla MD [address] [place] [address], [address] [place] [phone] Scheduled Referrals Name Type Priority Associated Diagnoses Orde r Schedule AMB CONS/FOLLOW UP ORTHOPEDICS Outpatient Referral Routine Sprain of right knee, unspecified ligament, initial encounter Ordered: 08/17/2019 documented as of this encounter Procedures Procedure Name Priority Date/Time Associated Diagnosis Comments KNEE 1 OR 2 VIEWS STAT 08/17/2019 15: 47 EDT documented in this encounter Results * KNEE 1 OR 2 VIEWS (08/17/2019 15:47 EDT) Anatomical Region Laterality Modality Other 08/17/2019 15:4 7 EDT 08/17/2019 16:16 EDT Narrative 08/17/2019 16:16 EDT KNEE 1 OR 2 VIEWS ??08/17/2019 3:47 PM Clinical History/Comments: right knee pain HX of replacement > 10 years ago. Findings: 2 views of the right knee. Compared to 8 months prior frontal views, hardware appears similar and intact no bony fracture or dislocation is seen no joint effusion is seen. Procedure Note Jayden Bull MD, MD - 08/17/2019 KNEE 1 OR 2 VIEWS 08/17/2019 3:47 PM Clinical History/Comments: right knee pain HX of replacement > 10 years ago. Findings: 2 views of the right knee. Compared to 8 months prior frontal views, hardware appears similar and intact no bony fracture or dislocation is seen no joint effusion is seen. Elle Nino MANAGER [facility] ORD ERABLES Final Result documented in this encounter Visit Diagnoses Diagnosis Sprain of right knee, unspecified ligament, initial encounter- Primary documented in this encounter Historical Medications * This list may reflect changes made after this encounter. omeprazole (PRILOSEC) 20 mg capsule Take 20 mg by mouth daily. 11/26/2019 traZODone (DESYREL) 100 mg tablet Take 150 mg by mouth at bedtime as needed. 04/28/2020 added in this encounter Orders Equipment Count Last Ordered Date First Orde red Date KNEE IMMOBILIZER ([id number]) 1 08/17/2019 documented in this encounter Care Teams Jelly Maker Relationship Specialty Start Date End Date Alma Farfan MD PCP - General 03/14/19 05/21/20 documented as of this encounter
--- OUTSIDE RECORDS SUMMARY | 2024-11-22 17:24 | XMS_ITS | Encounter Summary ---
Author Organization [facility] Address [address] [place] [address] Care Team Providers Care Baggage Handling Supervisor Name Role Phone Alma Farfan MD Primary Care Provider [phone] Reason for Visit * Reason Onset Date Comments Appointment Related 09/13/2019 Encounter Details Date Type Department Care Team (Late st Contact Info) Description 09/13/[address] [address] Physical, Therapy Appointment Related Social History Tobacco Use Types [...] encounter Miscellaneous Notes * Telephone Encounter - Terra Card - 09/13/[address] [address] A call was placed to Ms. Yun on 09/11 regarding failing to show for 09/10/19 physical therapy appointment. It was requested that patient call this office within 24 hours if she planned on keeping scheduled follow-ups - patient did not return call - all appointments have been cancelled by this office due to no contact from patient. Terra Card 09/13/2019 7:18 documented in this encounter Plan of Treatment Upcoming Encounters Date Type Department Care Team (Late st Contact Info) Description 01/04/2025 13:00 EST Office Visit [facility] Ophthalmology - [facility] [address], [place] [phone] Gagandeep Rome MD [address] [facility], [address] [place] [phone] 02/11/2025 13:30 EDT Telemedicine [facility] Hematology & Oncology - [address] [address] Dana Padilla MD [address] [place] [address], [address] [place] [address] documented as of this encounter Visit Diagnoses Not on filedocumented in this encounter Care Teams Baggage Handling Supervisor Relationship Specialty Start Date End Date Alma Farfan MD PCP - General 03/14/19 05/21/20 documented as of this encounter
--- OUTSIDE RECORDS SUMMARY | 2024-11-22 17:24 | XMS_ITS | Encounter Summary ---
Author Organization [facility] Address [address] [place] [address] Care Team Providers Care Foundation Assistant Name Role Phone Alma Farfan MD Primary Care Provider [phone] Reason for Visit * Reason Onset Date Comments Medication Management 11/28/2019 Encounter Details Date Type Department Care Team (Late st Contact Info) Description 11/28/2019 Telephone [facility] Hematology & Oncology - [place] [address] [place], [place] [phone] Starr Paige MD [address] [place] [phone] Medication Management Social History Tobacco Use [...] Miscellaneous Notes * Telephone Encounter - Cris Thorpe RN - 11/28/2019 0949 EST Tara is aware that because her WBC is low she should hold Tylenol so as not to mask a fever. Shereports that when she took Tylenol in the hospital she did not get any relief of pain and actually ended up with increased pain following administration. She has an appointment with her PCP tomorrow to discuss further pain control as her pain is not well controlled at this time with Tramadol. She was remind to not take ibuprofen as well given thrombocytopenia, which she recalled and has not taken. * Telephone Encounter - Ivy Weston - 11/28/2019 0838 EST Patient was discharged from hospital, they advised her to take Tylenol but advised to never under any circumstance take Tylenol so patient confused. Please advise. Please call back documented in this encounter Plan of Treatment Upcoming Encounters Date Type Department Care Team (Late st Contact Info) Description 01/04/2025 13:00 EST Office Visit [facility] Ophthalmology - [address] [phone] Gagandeep Rome MD [address] [place] [address], [facility] [address] [place] [phone] 02/11/2025 13:30 EDT Telemedicine [facility] Hematology & Oncology - [address] [phone] Dana Padilla MD [address] [place] [address], [facility] [address] [place] [address] documented as of this encounter Visit Diagnoses Not on filedocumented in this encounter Care Teams Foundation Assistant Relationship Specialty Start Date End Date Alma Farfan MD PCP - General 03/14/19 05/21/20 documented as of this encounter
--- OUTSIDE RECORDS SUMMARY | 2024-11-22 17:24 | XMS_ITS | Encounter Summary ---
Author Organization Health system Address [address] [place] [address] Care Team Providers Care Director School Of Nursing Name Role Phone Alma Farfan MD Primary Care Provider [phone] Emigdio Veronica MD Primary Care Provider + Reason for Visit * Reason Onset Date Comments Labs Only 12/04/2019 Encounter Details Date Type Department Care Team (Late st Contact Info) Description 12/04/2019 Telephone [facility] Center Hematology & Oncology - [facility] [address] [place] [address] Starr Paige MD [address] [place] [address] Labs Only Social History Tobacco [...] Answer Entry Date Author No 11/27/2019 6:36 EST Dana Lewis RN documented in this encounter Miscellaneous Notes * Telephone Encounter - Katherin Werner RN - 11/20/2020 1741 EST error documented in this encounter Plan of Treatment Upcoming Encounters Date Type Department Care Team (Late st Contact Info) Description 01/04/2025 13:00 EST Office Visit [facility] Ophthalmology - [address] [phone] Gagandeep Rome MD [address] [place] [address], [facility] [address] [place] [phone] 02/11/2025 13:30 EDT Telemedicine [facility] Hematology & Oncology [address] [address] Dana Padilla MD [address] [place] [address], [facility] [address] [place] [phone] documented as of this encounter Visit Diagnoses Not on filedocumented in this encounter Additional Health Concerns Infection Onset Date Last Indicated Resolved Time R/O COVID-19 Comment:Per MD Salmon 04/19/2020 04/19/2020 04/19/2020 14:46 E DT R/O COVID-19 08/25/2020 08/25/2020 08/30/2020 22:1 5 EDT documented as of this encounter Care Teams Director School Of Nursing Relationship Specialty Start Date End Date Alma Farfan MD PCP - General 03/14/19 05/21/20 Emigdio Veronica MD [address] [place] [phone] PCP - General Internal Medicine - Primary Care 05/22/20 02/21/24 documented as of this encounter
--- OUTSIDE RECORDS SUMMARY | 2024-11-22 17:24 | XMS_ITS | Encounter Summary ---
Author Organization [facility] Address [address] [place] [address] Care Team Providers Care Flux Core Welder Name Role Phone Alma Farfan MD Primary Care Provider [phone] [phone] Reason for Visit * Reason Onset Date Comments Appointment Related 09/07/2019 Encounter Details Date Type Department Care Team (Late st Contact Info) Description 09/07/[address] [address] Physical, Therapy Appointment Related Social [...] * Telephone Encounter - Terra Card - 09/07/[address] [address] A confirmation call was made to Ms. Yun regarding 09/10/19 physical therapy appointment. Date/time/location of appointment was confirmed with patient. Terra Card 09/07/2019 12:25 documented in this encounter Plan of Treatment Upcoming Encounters Date Type Department Care Team (Late st Contact Info) Description 01/04/2025 13:00 EST Office Visit [facility] Ophthalmology [address] [address] Gagandeep Rome MD [address] [place] [address], [address] [place] [address] 02/11/2025 13:30 EDT Telemedicine [facility] Hematology & Oncology [address] [phone] Dana Padilla MD [address] [facility], [address] [place] [address] documented as of this encounter Visit Diagnoses Not on filedocumented in this encounter Care Teams Flux Core Welder Relationship Specialty Start Date End Date Alma Farfan MD PCP - General 03/14/19 05/21/20 documented as of this encounter
--- OUTSIDE RECORDS SUMMARY | 2024-11-22 17:24 | XMS_ITS | Encounter Summary ---
Author Organization [facility] Address [address] [place] [address] Care Team Providers Care Supervisor Waterworks Name Role Phone Alma Farfan MD Primary Care Provider [phone] [phone] Encounter Details Date Type Department Care Team (Late st Contact Info) Description 07/13/2019 16:24 EDT - 07/13/2019 23:59 EDT Hospital Encounter [address] [address] Dom Zeng MD [address] [place] [address] Discharge Disposition: Home or Self Care Social [...] encounter Discharge Diagnoses Diagnosis D61.818 Other pancytopenia-D61.818[ICD-10-CM] D64.9 Anemia, unspecified-D64.9[ICD-10-CM] D69.6 Thrombocytopenia, unspecified-D69.6[ICD-10-CM] documented in this encounter Medications at Time [...] mcg by mouth daily. Unknown dose 11/03/2020 documented as of this encounter Discharge Disposition Disposition Code Departure Means Destination Home or Self [facility] documented in this encounter Plan of Treatment Upcoming Encounters Date Type Department Care Team (Late st Contact Info) Description 01/04/2025 13:00 EST Office Visit [facility] Ophthalmology - [address] [address] Gagandeep Rome MD [address] [place] [address], [facility] [address] [place] [phone] 02/11/2025 13:30 EDT Telemedicine [facility] Cancer Center Hematology & Oncology - [address] [phone] Dana Padilla MD [address] [place] [address], [address] [place] [phone] documented as of this encounter Visit Diagnoses Not on filedocumented in this encounter Care Teams Supervisor Waterworks Relationship Specialty Start Date End Date Alma Farfan MD PCP - General 03/14/19 05/21/20 documented as of this encounter
--- OUTSIDE RECORDS SUMMARY | 2024-11-22 17:24 | XMS_ITS | Encounter Summary ---
Author Organization [facility] Address [address] [place] [address] Care Team Providers Care Gill Tender Name Role Phone Alma Farfan MD Primary Care Provider [phone] [phone] Encounter Details Date Type Department Care Team (Late st Contact Info) Description 08/28/2019 Orders Only [facility] Cancer Center Hematology & Oncology - [facility] [address] [place] [address] Starr Paige MD [address] [place] [phone] Pancytopenia (HCC-CMS) (Primary Dx) Social History [...] Visit [facility] Ophthalmology - [address] [phone] Gagandeep Rome MD [address] [place] [address] 5 [place] [address] 02/11/2025 13:30 EDT Telemedicine [facility] Hematology & Oncology - [address] [phone] Dana Padilla MD [address] [place] [address] 2 [place] [address] documented as of this encounter Results * COMPREHENSIVE METABOLIC PANEL (ONCOLOGY USE ONLY-INC MG) (08/29/2019 10:04 EDT) [facility] Potassium 4.1 3.5 - 5.0 mEq/L 08/29/2019 10:31 EDT [facility] Sodium 141 136 - 145 mEq/L 08/29/2019 10:31 [facility] Chloride 104 96 - 110 mEq/L 08/29/2019 10:31 [facility] CO2 30 22 - 32 mEq/L 08/29/2019 10:31 [facility] Total Alkaline Phosphatase 91 38 - 126 U/L 08/29/2019 10:31 [facility] Bilirubin, Total 0.8 <1.4 mg/dl 08/29/20 19 10:31 [facility] AST 24 15 - 46 U/L 08/29/2019 10:31 [facility] ALT 24 <34 U/L 08/29/2019 10:31 [facility] Albumin 3.9 3.4 - 4.9 g/dl 08/29/2019 10:31 [facility] Total Protein 6.6 6.3 - 8.2 g/dl 08/29/2019 10:31 [facility] Creatinine 0.82 0.52 - 1.04 mg/dl 08/29/2019 10:31 [facility] GFR, Calculated 79 >60 ml/min/1.7 3m2 08/29/2019 10:31 [facility] Comment: eGFR calculated using CKD-EPI equation for non Americans. Multiply eGFR by 1.16 for Americans. BUN 13 10 - 26 mg/dl 08/29/2019 10:31 [facility] Calcium 8.8 8.5 - 10.5 mg/dl 08/29/2019 10:31 [facility] Calculated Calcium 8.9 8.5 - 10.5 mg/dl 08/29/2019 10:31 [facility] Glucose, Serum 71 70 - 100 mg/dl 08/29/2019 10:31 [facility] Magnesium 1.9 1.7 - 2.8 mg/dl 08/29/2019 10:31 [facility] Blood specimen (specimen) BLOOD SPECIMEN / Unknown 08/29/2019 10:04 EDT 08/29/2019 10:07 EDT us Starr R Umyarova MD CHEMISTRY & BLOOD GAS ORDER YANN Final Result [facility] [address] [place] [address] * (ABNORMAL) COMPLETE BLOOD COUNT AND DIFFERENTIAL (08/29/2019 10:04 EDT) WBC 1.12(L) 4.0 - 12.4 K/cmm 08/29/2019 10:23 [facility] RBC 3.77(L) 3.86 - 5.04 M/cmm 08/29/2019 10:23 [facility] Hemoglobin 11.7 11.6 - 15.2 gm/dl 08/29/2019 10:23 [facility] HCT 36.3 34.9 - 44.4 % 08/29/2019 10:23 [facility] MCV 96 81 - 98 fl 08/29/2019 10:23 [facility] MCH 31.0 26.7 - 33.3 pg 08/29/2019 10:23 [facility] MCHC 32.2 32.1 - 35.9 gm/dl 08/29/2019 10:23 [facility] RDW-CV 13.3 <14.7 % 08/29/2019 10:23 [facility] RDW-SD 47.2 <50.4 fl 08/29/2019 10:23 [facility] PLT 36(L) 141 - 377 K/cmm 08/29/2019 10:23 [facility] MPV 10.6 9.5 - 12.7 fl 08/29/2019 10:23 [facility] Neutrophils 73.9 % 08/29/2019 10:58 [facility] Lymphocytes 12.2 % 08/29/2019 10:58 [facility] Monocytes 11.3 % 08/29/2019 10:58 [facility] Eosinophils 0.9 % 08/29/2019 10:58 [facility] Basophils 1.7 % 08/29/2019 10:58 EDT [facility] ABS Neutrophils 0.83(L) 2.20 - 8.85 K/cmm 08/29/2019 10:58 EDT [facility] ABS Lymphs 0.14(L) 1.09 - 3.30 K/cmm 08/29/2019 10:58 EDT [facility] ABS Monocytes 0.13 0.1 - 0.8 K/cmm 08/29/2019 10:58 EDT [facility] ABS Eosinophils 0.01(L) 0.03 - 0.61 K/cmm 08/29/2019 10:58 EDT [facility] ABS Basophils 0.02 0.01 - 0.11 K/cmm 08/29/2019 10:58 EDT [facility] Type of Diff: Manual 08/29/2019 10:58 EDT [facility] Blood specimen (specimen) BLOOD SPECIMEN / Unknown 08/29/2019 10:04 EDT 08/29/2019 10:07 EDT us Starr Paige MD PACKAGES & DNA PROBE ORDERA BLES Final Result [facility] [address] [place] [address] documented in this encounter Visit Diagnoses Diagnosis Pancytopenia ([facility]-CMS)- Primary Other pancytopenia documented in this encounter Care Teams Gill Tender Relationship Specialty Start Date End Date Alma Farfan MD PCP - General 03/14/19 05/21/20 documented as of this encounter
--- OUTSIDE RECORDS SUMMARY | 2024-11-22 17:25 | XMS_ITS | Encounter Summary ---
Author Organization [facility] Address [address] [place] [address] Care Team Providers Care Bank Reconciliator Name Role Phone Naty Evans MD Unavailable Alma Farfan MD Primary Care Provider [phone] Encounter Details Date Type Department Care Team (Latest Contact Info) Description 03/30/2019 11:07 EDT - 03/30/2019 23:59 EDT Hospital Encounter [facility] [address] [place] [address] Starr Paige MD [address] [place] [address] Discharge Disposition: Auto Discharge Social History Tobacco [...] of Assessment Author No 08/24/2017 23:43 EDT Queen, Inderjit, RN * Are you blind or do [...] mcg as directed 2 times daily. 11/26/2019 ibuprofen (ADVIL) 200 mg tablet Take 400 mg by mouth every 6 hours. 04/23/2019 LEVOTHYROXINE SODIUM (LEVOTHYROXINE ORAL) Take 25 mcg by mouth daily. Unknown dose 11/03/2020 documented as of this encounter Discharge Disposition Disposition Code Departure Means Destination Auto Discharge Home documented in this encounter Plan of Treatment Upcoming Encounters Date Type Department Care Team (Late st Contact Info) Description 01/04/2025 13:00 EST Office Visit [facility] Ophthalmology - [address] [phone] Gagandeep Rome MD [address] [facility], Level 5 [place] [phone] 02/11/2025 13:30 EDT Telemedicine [facility] [place] Hematology & Oncology - [address] [phone] Dana Padilla MD [address] [place] [address], [facility] 2 [place] [phone] documented as of this encounter Procedures Procedure Name Priority Date/Time Associated Diagnosis Comments MULTIPLE DOC ORDERS Routine 03/30/2019 1 1:35 EDT documented in this encounter Results * MULTIPLE DOC ORDERS (03/30/2019 11:35 EDT) Multiple Doc Orders This report contains lab results ordered 03/30/2019 11:15 EDT [facility] Comment: by another provider which were collected and processed simultaneously with the orders you requested. If you have any questions, please call Customer Service at [phone]. TOPOGRAPHY UNKNOWN / Unknown 03/30/2019 11:35 EDT 03/30/2019 11:41 EDT us Starr Paige MD CHEMISTRY & BLOOD GAS ORDER YANN Final Result [facility] [address] [place] [address] documented in this encounter Visit Diagnoses Not on filedocumented in this encounter Care Teams Bank Reconciliator Relationship Specialty Start Date End Date Naty Evans MD [address] [place] [address] [place] [phone] PCP - Alternate 09/30/17 04/11/19 Alma Farfan MD [address] [place] [address] [place] [phone] PCP - General 03/14/19 05/21/20 documented as of this encounter
--- OUTSIDE RECORDS SUMMARY | 2024-11-22 17:25 | XMS_ITS | Encounter Summary ---
Author Organization [facility] Address [address] [place] [address] Care Team Providers Care Circuit Recorder Name Role Phone Naty Evans MD Unavailable Aj Issa MD Primary Care Provider + Encounter Details Date Type Department Care Team (Late st Contact Info) Description 02/28/2019 Orders Only [facility] Cancer Center Hematology & Oncology - [facility] [address] [place] [address] Tess Pal, RN Pancytopenia ([facility]-CMS) (Primary Dx) Social History Tobacco Use Types [...] [facility] Ophthalmology - [address] [phone] Gagandeep Rome MD [address] [place] [address] 5 [place] [phone] 02/11/2025 13:30 EDT Telemedicine [facility] Hematology & Oncology [address] [phone] Dana Padilla MD [address] [place] [address], [facility] 2 [place] [phone] documented as of this encounter Visit Diagnoses Diagnosis Pancytopenia (HCC-CMS)- Primary Other pancytopenia documented in this encounter Care Teams Circuit Recorder Relationship Specialty Start Date End Date Naty Evans MD [address] [place] [address] [place] [address] PCP - Alternate 09/30/17 04/11/19 Aj Issa MD [address] [address] PCP - General 07/29/18 03/13/19 documented as of this encounter
--- OUTSIDE RECORDS SUMMARY | 2024-11-22 17:25 | XMS_ITS | Encounter Summary ---
Author Organization [facility] Address [address] [place] [address] Care Team Providers Care Auto Roller Name Role Phone Alma Farfan MD Primary Care Provider [phone] Reason for Visit * Reason Onset Date Comments Infusion 06/25/2019 Iron Encounter Details Date Type Department Care Team (Late st Contact Info) Description 06/25/[address] [facility] Cancer Center Hematology & Oncology - [place] [address] [place], [place] [phone] Starr Paige MD [address] [place] [phone] Infusion (Iron) Social History Tobacco Use Types Packs/Day Years [...] Assessment Author No 08/24/2017 23:43 EDT Inderjit Queen, RN * Are you blind or do [...] Telephone Encounter - Katherin Werner RN - 06/25/2019 0947 EDT 0940 Called pt back. She states she saw [facility] and had a scope last week. She states they found two ulcers and recommended IV iron. She has not had labs in over a month but states her plateletshave been in the 30s. Advised she had an appt with Dr. Valencia on Tuesday which she unfortunately missed. Will notify dough cutting machine operator to re-schedule appt but that it may be a few months before she has another f/u/ in meantime suggested she have labs done. Pt verbalized understanding and will have labs. No barriers to learning identified. * Telephone Encounter - Chaparrita Salazar - 06/25/2019 0859 EDT Patient states she has endoscopy at [facility]. She states the GI Dr suggested her to start Iron Infusions. Please call. documented in this encounter Plan of Treatment Upcoming Encounters Date Type Department Care Team (Late st Contact Info) Description 01/04/2025 13:00 EST Office Visit [facility] Ophthalmology - [address] [phone] Gagandeep Rome MD [address] [place] [address], [address] [place] [phone] 02/11/2025 13:30 EDT Telemedicine [facility] Hematology & Oncology - [address] [phone] Dana Padilla MD [address] [place] [address], [facility] 2 [place] [address] documented as of this encounter Visit Diagnoses Not on filedocumented in this encounter Care Teams Auto Roller Relationship Specialty Start Date End Date Alma Farfan MD PCP - General 03/14/19 05/21/20 documented as of this encounter
--- OUTSIDE RECORDS SUMMARY | 2024-11-22 17:25 | XMS_ITS | Encounter Summary ---
Author Organization [facility] Address [address] [place] [address] Care Team Providers Care Raw Stock Machine Loader Name Role Phone Alma Farfan MD Primary Care Provider [phone] Encounter Details Date Type Department Care Team (Late st Contact Info) Description 04/12/2019 Orders Only [facility] Cancer Center Hematology & Oncology - [facility] [address] [place] [address] Starr Paige MD [address] [place] [phone] Social History Tobacco Use Types Packs/Day [...] [facility] Ophthalmology [address] 576191 Gagandeep Rome MD [address] [place] [address] 5 [place] [phone] 02/11/2025 13:[address] [facility] Hematology & Oncology [address] [phone] Dana Padilla MD [address] [place] [address], Level [address] [place] [phone] documented as of this encounter Visit Diagnoses Not on filedocumented in this encounter Care Teams Raw Stock Machine Loader Relationship Specialty Start Date End Date Alma Farfan MD PCP - General 03/14/19 05/21/20 documented as of this encounter
--- OUTSIDE RECORDS SUMMARY | 2024-11-22 17:25 | XMS_ITS | Encounter Summary ---
Author Organization [facility] Address [address] [place] [address] Care Team Providers Care Farm Equipment Mechanic Apprentice Name Role Phone Naty Evans MD Unavailable Alma Farfan MD Primary Care Provider [phone] Encounter Details Date Type Department Care Team (Late st Contact Info) Description 03/14/2019 Results Only Imaging [facility] [phone] Alma Farfan MD [address] [place] [phone] Social History Tobacco Use Types Packs/Day Years [...] Office Visit [facility] Ophthalmology [address] [phone] Gagandeep Rome MD [address] [place] [address] 5 [place] [phone] 02/11/2025 13:[address] [facility] Hematology & Oncology [address] [phone] Dana Padilla MD [address] [place] [address], Level [address] [place] [phone] documented as of this encounter Procedures Procedure Name Priority Date/Time Associated Diagnosis Comments RAD US ABDOMEN ONE ORGAN/QUADRANT 03/14/2019 14:36 EDT documented in this encounter Results * RAD US ABDOMEN ONE ORGAN/QUADRANT (03/14/2019 14:36 EDT) Anatomical Region Laterality Modality Other 03/14/2019 14:3 6 EDT 03/14/2019 15:36 EDT Narrative 03/14/2019 15:36 EDT RAD US ABDOMEN ONE ORGAN/QUADRANT 03/14/2019 2:36 PM Signs and Symptoms: ??Liver Cirrhosis, 6 month follow up ??RUQ Tenderness question of mass in adipose tissue Comparison: CT renal colic October 2018 Technique: Still and cine ultrasound images of the right upper quadrant were obtained with Doppler augmentation where necessary. Findings: The imaged portion of the pancreas is normal in appearance. The liver measures 14.0 cm. ??The liver parenchyma demonstrates coarsened heterogenous echotexture with a nodular surface contour. No focal hepatic mass identified. The portal vein was incidentally identified as enlarged, measuring 2.5 cm, but normal flow was present. The right kidney measures 8.9 cm in length. No calculi are seen. There is no evidence of hydronephrosis. It demonstrates normal Doppler flow. The gallbladder is surgically absent. The common duct measures 3 mm. ? The proximal aorta and IVC are normal in caliber. In the right upper quadrant, corresponding to region of palpable concern, there is an irregular hypoechoic shadowing area with punctate a focus of hyperechoic shadowing material. Based on recent CT examination, this represents the superior aspect of the patient's hernia repair mesh with a surgical staple. Impression: 1. ??Region of palpable concern corresponds with the most superior aspect of the abdominal wall hernia repair mesh. 2. ??Cirrhotic liver 3. ??Distended portal vein, without evidence of thrombosis. 4. ??Post cholecystectomy. I have personally reviewed the images and the above interpretation and agree with the findings. Procedure Note Kevin Chase, Espinoza Francis MD - 03/14/2019 RAD US ABDOMEN ONE ORGAN/QUADRANT 03/14/2019 2:36 PM Signs and Symptoms: Liver Cirrhosis, 6 month follow up RUQ Tenderness question of mass in adipose tissue Comparison: CT renal colic October 2018 Technique: Still and cine ultrasound images of the right upper quadrant were obtained with Doppler augmentation where necessary. Findings: The imaged portion of the pancreas is normal in appearance. The liver measures 14.0 cm. The liver parenchyma demonstrates coarsened heterogenous echotexture with a nodular surface contour. No focal hepatic mass identified. The portal vein was incidentally identified as enlarged, measuring 2.5 cm, but normal flow was present. The right kidney measures 8.9 cm in length. No calculi are seen. There is no evidence of hydronephrosis. It demonstrates normal Doppler flow. The gallbladder is surgically absent. The common duct measures 3 mm. The proximal aorta and IVC are normal in caliber. In the right upper quadrant, corresponding to region of palpable concern, there is an irregular hypoechoic shadowing area with punctate a focus of hyperechoic shadowing material. Based on recent CT examination, this represents the superior aspect of the patient's hernia repair mesh with a surgical staple. Impression: 1. Region of palpable concern corresponds with the most superior aspect of the abdominal wall hernia repair mesh. 2. Cirrhotic liver 3. Distended portal vein, without evidence of thrombosis. 4. Post cholecystectomy. I have personally reviewed the images and the above interpretation and agree with the findings. us Alma Farfan MD IMG US ORDERABLES Final R esult documented in this encounter Visit Diagnoses Not on filedocumented in this encounter Care Teams Farm Equipment Mechanic Apprentice Relationship Specialty Start Date End Date Naty Evans MD [address] [place] [address] MARIANA GOMEZ [phone] PCP - Alternate 09/30/17 04/11/19 Alma Farfan MD [address] [place] [address] [place] GOME[place] [phone] PCP - General 03/14/19 05/21/20 documented as of this encounter
--- OUTSIDE RECORDS SUMMARY | 2024-11-22 17:25 | XMS_ITS | Encounter Summary ---
Author Organization [facility] Address [address] [place] [address] Care Team Providers Care Sales Driver Name Role Phone Naty Evans MD Unavailable Aj Issa MD Primary Care Provider + Encounter Details Date Type Department Care Team (Late st Contact Info) Description 03/01/[address] [facility] [phone] Alma Farfan MD [address] [place] [address] [phone] Social History Tobacco Use Types Packs/Day Years [...] Entry Date Author No 03/03/2018 9:28 Inderjit Radofrd RN documented in this encounter Plan of Treatment Upcoming Encounters Date Type Department Care Team (Late st Contact Info) Description 01/04/2025 13:[address] [facility] Ophthalmology [address] [address] Gagandeep Rome MD [address] [place] [address] 5 [place] [phone] 02/11/2025 13:30 EDT Telemedicine [facility] Hematology & Oncology [address] [phone] Dana Padilla MD [address] [place] [address], Level [address] [place] [phone] documented as of this encounter Procedures Procedure Name Priority Date/Time Associated Diagnosis Comments IBC Routine 02/28/2019 8:13 EDT TSH Routine 02/28/2019 8:13 EDT IRON Routine 02/28/2019 8:13 EDT documented in this encounter Results * IBC (02/28/2019 8:13 EDT) TIBC 391 265 - 497 ug/dl 03/01/2019 16:47 EDT [facility] BLOOD SPECIMEN / Unknown 02/28/2019 8:13 EDT 03/01/2019 16:14 EDT Alma Farfan MD CHEMISTRY & BLOOD GAS ORD ERABLES Final Result [facility] [address] [place] [address] * IRON (02/28/2019 8:13 EDT) Iron 49 37 - 170 ug/dl 03/01/2019 16:39 EDT [facility] BLOOD SPECIMEN / Unknown 02/28/2019 8:13 EDT 03/01/2019 16:14 EDT Alma Farfan MD CHEMISTRY & BLOOD GAS ORD ERABLES Final Result Performing Organization Address City/[facility]/ZIP Co de Phone Number [facility] [address] [place] [address] * TSH (02/28/2019 8:13 EDT) TSH 1.81 0.47 - 4.68 uIU/ml 03/01/2019 17:11 EDT [facility] Comment: The results of this assay can be falsely lowered due to the consumption of Biotin. BLOOD SPECIMEN / Unknown 02/28/2019 8:13 EDT 03/01/2019 16:14 EDT Alma Farfan MD CHEMISTRY & BLOOD GAS ORD ERABLES Final Result Performing Organization Address City/[facility]/ZIP Co de Phone Number [facility] [address] [place] [address] documented in this encounter Visit Diagnoses Not on filedocumented in this encounter Care Teams Sales Driver Relationship Specialty Start Date End Date Naty Evans MD [address] [place] [address] [place] [address] PCP - Alternate 09/30/17 04/11/19 Aj Issa MD [address] [place] [phone] PCP - General 07/29/18 03/13/19 documented as of this encounter
--- OUTSIDE RECORDS SUMMARY | 2024-11-22 17:25 | XMS_ITS | Encounter Summary ---
Author Organization [facility] Address [address] [place] [address] Care Team Providers Care Local Intermodal Truck Driver Name Role Phone Naty Evans MD Unavailable Aj Issa MD Primary Care Provider + Encounter Details Date Type Department Care Team (Latest Contact Info) Description 02/28/2019 12:20 EDT - 02/28/2019 12:21 EDT Hospital Encounter [address] [address] Alma Farfan MD [address] [place] [phone] Discharge Disposition: Home or Self Care Social [...] documented in this encounter Discharge Diagnoses Diagnosis E03.9 Hypothyroidism, unspecified-E03.9[ICD-10-CM] documented in this encounter Medications at Time of Discharge albuterol 90 mcg/actuation inhaler Inhale 2 Puffs as directed every 4 hours as needed. 09/18/2021 amitriptyline (ELAVIL) 10 mg tablet Take 10 mg by mouth daily. 03/17/2019 ERGOCALCIFEROL, VITAMIN D2, (VITAMIN D ORAL) Take [...] Office Visit [facility] Ophthalmology - [address] [phone] Gagandeep Rome MD [address] [place] [address], [facility] 5 [place] [phone] 02/11/2025 13:30 EDT Telemedicine [facility] Hematology & Oncology - [address] [phone] Dana Padilla MD [address] [place] [address], Level [address] [place] [address] documented as of this encounter Visit Diagnoses Not on filedocumented in this encounter Care Teams Local Intermodal Truck Driver Relationship Specialty Start Date End Date Naty Evans MD [address] [place] [address] [place] [phone] PCP - Alternate 09/30/17 04/11/19 Aj Issa MD [address] [place] [address] [address] [place] [address] PCP - General 07/29/18 03/13/19 documented as of this encounter
--- OUTSIDE RECORDS SUMMARY | 2024-11-22 17:25 | XMS_ITS | Encounter Summary ---
Author Organization [facility] Address [address] [place] [id number] Care Team Providers Care Low Pressure Boiler Operator Name Role Phone Naty Evans MD Unavailable Alma Farfan MD Primary Care Provider [phone] [phone] Reason for Visit * Reason Comments Hand Burn Burn to both hands r ight worse than left Happened with a lobster steamer around 1215 Encounter Details Date Type Department Care Team (Latest Contact Info) Description 03/17/2019 13:16 EDT - 03/17/2019 15:10 EDT Hospital Encounter [facility] - [address] [address] Cris Carmichael MD [address] [place] [phone] Unknown, Provider, Partial thickness burn of back of right hand, initial encounter (Primary Dx) Discharge Disposition: Home [...] Reading Time Taken Comments Blood Pressure 108/56 03/17/2019 1337 EDT Pulse 69 03/17/2019 1337 EDT Temperature 36.1 ??C (96.9 ??F) 03/17/2019 1337 EDT Respiratory Rate 16 03/17/2019 1337 EDT Oxygen Saturation - - Inhaled Oxygen [...] this encounter Discharge Instructions * Discharge Instructions* Cris Carmichael MD - 03/17/2019 15:12 EDT As we discussed, your symptoms of swelling, redness and pain are most likely due to the burn. Keep the burn clean and dressed. Change the dressing daily. Keep antibiotic ointment on the burn. (bacitracin) You may use oxycodone 1 tab every 4 hours as needed for pain- pain is worst over the first day. If you develop fevers, worsening pain, redness, pus draining from the wound, you must be seen. Otherwise follow up in two- 3 days with your pcp to make sure the burn is healing up- if dong well no need for the burn clinic. * Attachments The following attachments cannot be sent through Care Everywhere. * TURK (GREENLANDIC) documented in this encounter Medications at Time [...] dose 11/03/2020 documented as of this encounter Ordered Prescriptions Prescription Sig Dispense Quantity Refills Last Filled Start Date End Date oxyCODONE (ROXICODONE) 5 mg immediate release tablet Take 1 tablet by mouth every 4 hours as needed for up to 5 days for Pain. Daily Max: 30 mg 5 tablet 03/17/2019 03/22/2019 documented in this encounter Discharge Disposition Disposition Code Departure Means Destination Home or Self Care documented in this encounter ED Notes * Neda Butt LPN - 03/17/2019 1607 EDT Turk wrapped with xeroform and gauze with net dressing applied over all. * Cris Carmichael MD - 03/17/2019 0110 EDT DOS: 03/17/2019 Chief Complaint Patient presents with ??? Hand Burn Burn to both hands right worse than left Happened with a lobster steamer around 1215 The patient is a 58 y.o. female who presents today with Hand Burn (Burn to both hands right worse than left Happened with a lobster steamer around 1215) The history is provided by the patient. Hand Burn Burn location: Hand and finger (both) Hand burn location: R fingers and L fingers Finger burn location: R little finger Burn quality: Red and intact blister Time since incident: 2 hours Progression: Unchanged Mechanism of burn: Hot liquid Incident location: Work Relieved by: Cold compresses Associated symptoms: no nasal turk and no shortness of breath Review of Systems Constitutional: Positive for activity change. Respiratory: Negative for shortness of breath. Musculoskeletal: Positive for myalgias. Skin: Positive for color change. Current Facility-Administered Medications Medication Dose Route Frequency Provider Last Rate Last Dose ??? tetanus and diphtheria toxoids 2-2 Lf unit/0.5 mL IM injection 0.5 mL 0.5 mL intramuscular Cris Chisholm MD Current Outpatient Medications Medication Sig Dispense Refill [...] mcg as directed 2 times daily. ??? ibuprofen (ADVIL) 200 mg tablet Take 400 mg by mouth every 6 hours. ??? LEVOTHYROXINE SODIUM (LEVOTHYROXINE ORAL) Take 25 mcg by mouth daily. Unknown dose ??? oxyCODONE (ROXICODONE) 5 mg immediate release tablet Take 1 tablet by mouth every 4 hours as needed for up to 5 days for Pain. Daily Max: 30 mg 5 tablet 0 Allergies Allergen Reactions ??? Morphine Anaphylaxis ??? Sulfa (Sulfonamide Antibiotics) Anaphylaxis ??? Tylenol [Acetaminophen] Other (See Comments) Contraindication with medical hx ??? Toradol [Ketorolac] Shortness Of Breath ??? Aspirin Other (See Comments) Contraindication with medical hx ??? Lyrica [Pregabalin] Anxiety Insomnia ??? Reglan [...] and notes from [facility] patient misconstrued information to several providers about multiple concurrent opiate prescription ??? Pancytopenia (HCC-CMS) 07/18/2015 ??? Mild persistent asthma without complication 07/18/2015 Past Medical History: Diagnosis Date ??? Anemia ??? Anxiety ??? Asthma ??? Bleeding disorder (HCC-CMS) ??? C. difficile colitis 07/25/2015 Hospitalized after kidney stone removal ??? Chronic kidney disease ??? Cirrhosis of liver (HCC-CMS) ??? Clotting disorder (HCC-CMS) ??? Depression ??? Drug-seeking behavior Per Dr Amelia Tijerina and notes from [facility] patient misconstrued information to several providers about [...] Topics ??? Alcohol use: No Alcohol/week: 0.0 oz ??? Drug use: No Family History Problem Relation Age of Onset ??? Cancer Maternal Grandmother ??? Diabetes Mother ??? Coronary Artery Disease Father ??? Clotting Disorder Father ??? Diabetes Brother BP 108/56 Pulse 69 Temp 96.9 ??F (36.1 ??C) Resp 16 Physical Exam Constitutional: She is oriented to person, place, and time. She appears well- nourished. No distress. Looks uncomfortable, hands with cool compresses HENT: Head: Atraumatic. Cardiovascular: Intact distal pulses. Pulmonary/Chest: Effort normal. No respiratory distress. Neurological: She is alert and oriented to person, place, and time. Skin: Skin is dry. She has redness to the right hand and has intact blisters on the fifth finger. Has some mild redness to the left hand, swelling is decreasing. Good rom of the fingers, although painful. Nursing note and vitals reviewed. Consult orders: None PCP: Alma Farfan No results found for this visit on 03/17/19. Radiology orders: None Imaging Results None No orders to display Procedures URGENT CARE COURSE A medical screening exam was performed. She has some first degree turk on the right hand dorsum and a second degree burn on the lateral 5th finger right hand. Mild first degree burn on the right dorsum. Washed with soap and water. Dt given. Xeroform dressing applied. Keep on for 24-48 hours and redress daily. Follow up with pcp in a few days for recheck. vpms checked. Oxycodone 5 mg q4 prn given#5/0. She has low platelets (30) and should not take nsaids, and has cirrhosis and should not take tylenol. ASSESSMENT AND PLAN Final diagnoses: Partial thickness burn of back of right hand, initial encounter No supervision required. DISPOSITION: Discharged The patient's pain was managed to an adequate level weighing risk vs. benefit of further medications. Upon departure from [facility], the patient's pain was 8 on a zero to ten scale. Any further pain treatment will be at the discretion of the provider following up with the patient based on their clinical assessment . Condition at departure from the [facility] : Good MDM 03/17/2019 15:30 * Neda Butt LPN - 03/17/2019 1413 EDT Pt presents with a burn to right hand sustained at work this afternoon. 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 Hand is red and swollen with some blisters developing. Pt is alert and oriented. * Aliza Castillo RN - 03/17/2019 1342 EDT Lashanda aware that patient's pain is 8/10 * Aliza Castillo RN - 03/17/2019 1335 EDT Name and verified. documented in this encounter Plan of Treatment Upcoming Encounters Date Type Department Care Team (Late st Contact Info) Description 01/04/2025 13:00 EST Office Visit [facility] - [address] [id number] Gagandeep Rome MD [address] [place] [address], [facility] [address] [place] [phone] 02/11/2025 13:30 EDT Telemedicine [facility] Hematology & Oncology - [address] [id number] Dana Padilla MD [address] [place] [address], [facility] 2 [place] [phone] documented as of this encounter Visit Diagnoses Diagnosis Partial thickness burn of back of right hand, initial encounter- Primary documented in this encounter Discontinued Medications Medication Sig Discontinue Reason Start Date End Da te amitriptyline (ELAVIL) 10 mg tablet Take 10 mg by mouth daily. 03/17/2019 documented as of this encounter Historical Medications * This list may reflect changes made after this encounter. ibuprofen (ADVIL) 200 mg tablet Take 400 mg by mouth every 6 hours. 04/23/2019 added in this encounter Care Teams Low Pressure Boiler Operator Relationship Specialty Start Date End Date Naty Evans MD [address] [place] [address] [place] [phone] PCP - Alternate 09/30/17 04/11/19 Alma Farfan MD [address] [place] [address] MARIANA GOMEZ [phone] PCP - General 03/14/19 05/21/20 documented as of this encounter
--- OUTSIDE RECORDS SUMMARY | 2024-11-22 17:25 | XMS_ITS | Encounter Summary ---
Author Organization [facility] Address [address] [place] [address] Care Team Providers Care Tilting Saw Operator Name Role Phone Alma Farfan MD Primary Care Provider [phone] Encounter Details Date Type Department Care Team (Latest Contact Info) Description 06/28/2019 15:58 EDT - 06/28/2019 23:59 EDT Hospital Encounter [facility] [address] [place] [address] Starr Paige MD [address] [place] [address] Discharge Disposition: Home or Self Care Social [...] [facility] Ophthalmology - [address] [address] Gagandeep Rome MD [address] [place] [address], [address] [place] [phone] 02/11/2025 13:30 EDT Telemedicine [facility] H[facility] & Oncology - [address] [phone] Dana Padilla MD [address] [facility], [facility] 2 [place] [address] documented as of this encounter Visit Diagnoses Not on filedocumented in this encounter Care Teams Tilting Saw Operator Relationship Specialty Start Date End Date Alma Farfan MD PCP - General 03/14/19 05/21/20 documented as of this encounter
--- OUTSIDE RECORDS SUMMARY | 2024-11-22 17:25 | XMS_ITS | Encounter Summary ---
Author Organization [facility] Address [address] [place] [address] Care Team Providers Care First Sampler Name Role Phone Naty Evans MD Unavailable Alma Farfan MD Primary Care Provider [phone] Encounter Details Date Type Department Care Team (Late st Contact Info) Description 03/30/2019 Orders Only [facility] Hematology & Oncology - Main [place] [address] [place] [address] Starr Paige MD [address] [place] [address] Pancytopenia (HCC-CMS) (Primary Dx) Social [...] Assessment Author No 08/24/2017 23:43 EDT Inderjit QueenKENN * Are you blind or do you [...] Office Visit [facility] Ophthalmology - [address] [place] [address] [address] Gagandeep Rome MD [address] [place] [address], [facility] [address] [place] [address] 02/11/2025 13:30 EDT Telemedicine [facility] [place] [facility] Oncology [address] [phone] Dana Padilla MD [address] [place] [address], [address] [place] [address] documented as of this encounter Results * TSH (03/30/2019 11:35 EDT) TSH 2.53 0.47 - 4.68 uIU/ml 03/30/2019 12:36 EDT [facility] Comment: The results of this assay can be falsely lowered due to the consumption of Biotin. Blood specimen (specimen) BLOOD SPECIMEN / Unknown 03/30/2019 11:35 EDT 03/30/2019 11:41 EDT Starr Paige MD CHEMISTRY & BLOOD GAS ORDER YANN Final Result Performing Organization Address City/[facility]/ZIP Co de Phone Number [facility] [address] [place] [address] * FERRITIN (03/30/2019 11:35 EDT) Ferritin 24 10 - 291 ng/ml 03/30/2019 13:57 EDT [facility] Blood specimen (specimen) BLOOD SPECIMEN / Unknown 03/30/2019 11:35 EDT 03/30/2019 11:41 EDT Starr Paige MD CHEMISTRY & BLOOD GAS ORDER YANN Final Result Performing Organization Address [facility] Co de Phone Number [facility] [address] [place] [address] * HAPTOGLOBIN (03/30/2019 11:35 EDT) Haptoglobin 61 32 - 197 mg/dL 03/30/2019 12:30 EDT [facility] Blood specimen (specimen) BLOOD SPECIMEN / Unknown 03/30/2019 11:35 EDT 03/30/2019 11:41 EDT Starr Paige MD CHEMISTRY & BLOOD GAS ORDER YANN Final Result Performing Organization Address [facility] Co de Phone Number [facility] [address] [place] [address] * FOLATE (03/30/2019 11:35 EDT) Folate 7.8 ng/ml 03/30/2019 12:44 EDT [facility] Comment: Deficient: ??Less than 3.4 ng/mL Indeterminate: ??3.4-5.4 ng/mL Normal: ??Greater than 5.4 ng/mL The results of this assay can be falsely elevated due to the consumption of Biotin. Blood specimen (specimen) BLOOD SPECIMEN / Unknown 03/30/2019 11:35 EDT 03/30/2019 11:41 EDT Starr Paige MD CHEMISTRY & BLOOD GAS ORDER YANN Final Result Performing Organization Address City/[facility] Co de Phone Number [facility] [address] [place] [address] * VITAMIN B12 (03/30/2019 11:35 EDT) Pathologist [facility] Vitamin B-12 353 211 - 911 pg/ml 03/30/2019 13:57 EDT [facility] Blood specimen (specimen) BLOOD SPECIMEN / Unknown 03/30/2019 11:35 EDT 03/30/2019 11:41 EDT Starr Paige MD CHEMISTRY & BLOOD GAS ORDER YANN Final Result Performing Organization Address [facility] de Phone Number [facility] [address] [place] [address] * RETICULOCYTE COUNT (03/30/2019 11:35 EDT) Pathologist [facility] Retic Ct (Uncorrected) 1.1 0.5 - 2.5 % 03/30/2019 12:03 EDT [facility] Blood specimen (specimen) BLOOD SPECIMEN / Unknown 03/30/2019 11:35 EDT 03/30/2019 11:41 EDT Starr Paige MD HEMATOLOGY & PF4 ORDERABLES Final Result Performing Organization Address [facility] Co de Phone Number [facility] [address] [place] [address] * COMPREHENSIVE METABOLIC PANEL (ONCOLOGY USE ONLY-INC MG) (03/30/2019 11:35 EDT) Pathologist [facility] Potassium 4.5 3.5 - 5.0 mEq/L 03/30/2019 12:04 [facility] Sodium 139 136 - 145 mEq/L 03/30/2019 12:04 [facility] Chloride 106 96 - 110 mEq/L 03/30/2019 12:04 [facility] CO2 27 22 - 32 mEq/L 03/30/2019 12:04 [facility] Total Alkaline Phosphatase 95 38 - 126 U/L 03/30/2019 12:04 [facility] Bilirubin, Total <0.5 <1.4 mg/dl 03/30/20 19 12:04 [facility] AST 18 15 - 46 U/L 03/30/2019 12:04 [facility] ALT 23 <53 U/L 03/30/2019 12:04 [facility] Albumin 3.6 3.4 - 4.9 g/dl 03/30/2019 12:04 [facility] Total Protein 6.3 6.3 - 8.2 g/dl 03/30/2019 12:04 [facility] Creatinine 0.83 0.52 - 1.04 mg/dl 03/30/2019 12:04 [facility] GFR, Calculated 78 >60 ml/min/1.7 3m2 03/30/2019 12:04 [facility] Comment: eGFR calculated using CKD-EPI equation for non Americans. Multiply eGFR by 1.16 for Americans. BUN 15 10 - 26 mg/dl 03/30/2019 12:04 [facility] Calcium 8.7 8.5 - 10.5 mg/dl 03/30/2019 12:04 [facility] Calculated Calcium 9.0 8.5 - 10.5 mg/dl 03/30/2019 12:04 [facility] Glucose, Serum 80 70 - 100 mg/dl 03/30/2019 12:04 [facility] Magnesium 1.7 1.7 - 2.8 mg/dl 03/30/2019 12:04 [facility] Blood specimen (specimen) BLOOD SPECIMEN / Unknown 03/30/2019 11:35 EDT 03/30/2019 11:41 EDT us Starr Paige MD CHEMISTRY & BLOOD GAS ORDER YNAN Final Result [facility] [address] [place] [address] * (ABNORMAL) COMPLETE BLOOD COUNT AND DIFFERENTIAL (03/30/2019 11:35 EDT) WBC 1.08(L) 4.0 - 12.4 K/cmm 03/30/2019 12:03 [facility] RBC 3.94 3.86 - 5.04 M/cmm 03/30/2019 12:03 [facility] Hemoglobin 11.0(L) 11.6 - 15.2 gm/dl 03/30/2019 12:03 [facility] HCT 33.7(L) 34.9 - 44.4 % 03/30/2019 12:03 [facility] MCV 86 81 - 98 fl 03/30/2019 12:03 [facility] MCH 27.9 26.7 - 33.3 pg 03/30/2019 12:03 [facility] MCHC 32.6 32.1 - 35.9 gm/dl 03/30/2019 12:03 [facility] RDW-CV 15.6(H) <14.7 % 03/30/2019 12:03 [facility] RDW-SD 49.0 <50.4 fl 03/30/2019 12:03 [facility] PLT 37(L) 141 - 377 K/cmm 03/30/2019 12:03 [facility] MPV 10.8 9.5 - 12.7 fl 03/30/2019 12:03 [facility] Neutrophils 74.8 % 03/30/2019 12:34 [facility] Lymphocytes 17.4 % 03/30/2019 12:34 [facility] Monocytes 2.6 % 03/30/2019 12:34 [facility] Eosinophils 2.6 % 03/30/2019 12:34 [facility] Basophils 2.6 % 03/30/2019 12:34 [facility] ABS Neutrophils 0.81(L) 2.20 - 8.85 K/cm 03/30/2019 12:34 [facility] ABS Lymphs 0.19(L) 1.09 - 3.30 K/cm 03/30/2019 12:34 [facility] ABS Monocytes 0.03(L) 0.1 - 0.8 K/cm 03/30/2019 12:34 [facility] ABS Eosinophils 0.03 0.03 - 0.61 K/cm 03/30/2019 12:34 [facility] ABS Basophils 0.03 0.01 - 0.11 K/cm 03/30/2019 12:34 [facility] Basophilic Stippling Present in <2% of RBCs 03/30/2019 12:34 [facility] Toxic Granulation Present 019 12:34 [facility] Vacuolization Present 03/30/2019 12:34 [facility] Type of Diff: Manual 03/30/2019 12:34 [facility] Blood specimen (specimen) BLOOD SPECIMEN / Unknown 03/30/2019 11:35 EDT 03/30/2019 11:41 EDT Starr Paige MD PACKAGES & DNA PROBE ORDERA BLES Final Result [facility] [address] [place] [address] documented in this encounter Visit Diagnoses Diagnosis Pancytopenia (HCC-CMS)- Primary Other pancytopenia documented in this encounter Care Teams First Sampler Relationship Specialty Start Date End Date Naty Evans MD [address] [place] [address] [place] [phone] PCP - Alternate 09/30/17 04/11/19 Alma Farfan MD [address] [place] [address] [place] [phone] PCP - General 03/14/19 05/21/20 documented as of this encounter
--- OUTSIDE RECORDS SUMMARY | 2024-11-22 17:25 | XMS_ITS | Encounter Summary ---
Author Organization [facility] Address [address] [place] [address] Care Team Providers Care Knitted Goods Shaper Name Role Phone Alma Farfan MD Primary Care Provider [phone] [phone] Encounter Details Date Type Department Care Team (Late st Contact Info) Description 06/21/2019 Orders Only [facility] Center Hematology & Oncology - [facility] [address] [place] [address] Starr Paige MD [address] [place] [phone] Pancytopenia (HCC-CMS) (Primary Dx) Social History [...] Visit [facility] Ophthalmology - [address] [phone] Gagandeep Rome MD [address] [place] [address] 5 [place] [address] 02/11/2025 13:30 EDT Telemedicine [facility] Hematology & Oncology [address] [phone] Dana Padilla MD [address] [place] [address] 2 [place] [address] documented as of this encounter Results * METHYLMALONIC ACID (06/28/2019 16:12 EDT) Methylmalonic Acid 0.28 <=0.40 nmol/mL 07/03/2019 14:09 EDT [facility] Comment: (Note) . ADDITIONAL INFORMATION This test was developed and its performance characteristics determined by [facility] in a manner consistent with CLIA requirements. This test has not been cleared or approved by the U.S. Food and Drug Administration. Performed or Referred by: [facility], [address] [place] [address] Blood specimen (specimen) BLOOD SPECIMEN / Unknown 06/28/2019 16:12 EDT 06/28/2019 17:41 EDT Starr Paige MD CHEMISTRY & BLOOD GAS ORDER YANN Final Result Performing Organization Address [facility] de Phone Number [facility] [address] [place] [address] * COPPER, SERUM (06/28/2019 16:12 EDT) Copper, Serum 0.98 0.75 - 1.45 mcg/mL 06/30/2019 11:01 EDT [facility] Comment: (Note) . ADDITIONAL INFORMATION This test was developed and its performance characteristics determined by [facility] in a manner consistent with CLIA requirements. This test has not been cleared or approved by the U.S. Food and Drug Administration. Performed by: [facility]: [facility] [address], [place] [address] Blood specimen (specimen) BLOOD SPECIMEN / Unknown 06/28/2019 16:12 EDT 06/28/2019 17:41 EDT Starr Paige MD CHEMISTRY & BLOOD GAS ORDER YANN Final Result Performing Organization Address [facility] de Phone Number [facility] [address] [place] [address] * FERRITIN (06/28/2019 16:12 EDT) Ferritin 184 10 - 291 ng/ml 06/29/2019 11:09 EDT [facility] Blood specimen (specimen) BLOOD SPECIMEN / Unknown 06/28/2019 16:12 EDT 06/28/2019 17:41 EDT Starr Paige MD CHEMISTRY & BLOOD GAS ORDER YANN Final Result Performing Organization Address [facility] Co de Phone Number [facility] [address] [place] [address] * (ABNORMAL) HAPTOGLOBIN (06/28/2019 16:12 EDT) [facility] Haptoglobin 30(L) 32 - 197 mg/dL 06/29/2019 9:45 EDT [facility] Blood specimen (specimen) BLOOD SPECIMEN / Unknown 06/28/2019 16:12 EDT 06/28/2019 17:41 EDT Starr Paige MD CHEMISTRY & BLOOD GAS ORDER YANN Final Result Performing Organization Address [facility] Co de Phone Number [facility] [address] [place] [address] * FOLATE (06/28/2019 16:12 EDT) [facility] Folate 7.1 ng/ml 06/29/2019 11:09 EDT [facility] Comment: Deficient: ??Less than 3.4 ng/mL Indeterminate: ??3.4-5.4 ng/mL Normal: ??Greater than 5.4 ng/mL The results of this assay can be falsely elevated due to the consumption of Biotin. Blood specimen (specimen) BLOOD SPECIMEN / Unknown 06/28/2019 16:12 EDT 06/28/2019 17:41 EDT us Starr Paige MD CHEMISTRY & BLOOD GAS ORDER YANN Final Result Performing Organization Address [facility] Co de Phone Number [facility] [address] [place] [address] * VITAMIN B12 (06/28/2019 16:12 EDT) [facility] Vitamin B-12 318 211 - 911 pg/ml 06/29/2019 11:09 EDT [facility] Blood specimen (specimen) BLOOD SPECIMEN / Unknown 06/28/2019 16:12 EDT 06/28/2019 17:41 EDT Starr Paige MD CHEMISTRY & BLOOD GAS ORDER YANN Final Result [facility] [address] [place] [address] * RETICULOCYTE COUNT (06/28/2019 16:12 EDT) Pathologist [facility] Retic Ct (Uncorrected) 1.4 0.5 - 2.5 % 06/28/2019 18:11 EDT [facility] Blood specimen (specimen) BLOOD SPECIMEN / Unknown 06/28/2019 16:12 EDT 06/28/2019 17:41 EDT us Starr Paige MD HEMATOLOGY & PF4 ORDERABLES Final Result Performing Organization Address City/[facility]/ZIP Co de Phone Number [facility] [address] [place] [address] * LDH (06/28/2019 16:12 EDT) Pathologist [facility] LDH 320 313 - 618 U/L 06/28/2019 18:17 EDT [facility] Blood specimen (specimen) BLOOD SPECIMEN / Unknown 06/28/2019 16:12 EDT 06/28/2019 17:41 EDT Starr Paige MD CHEMISTRY & BLOOD GAS ORDER YANN Final Result Performing Organization Address City/[facility]/ZIP Co de Phone Number [facility] [address] [place] [address] * (ABNORMAL) COMPREHENSIVE METABOLIC PANEL (ONCOLOGY USE ONLY-INC MG) (06/28/2019 16:12 EDT) Pathologist [facility] Potassium 3.7 3.5 - 5.0 mEq/L 06/28/2019 18:17 [facility] Sodium 140 136 - 145 mEq/L 06/28/2019 18:17 [facility] Chloride 106 96 - 110 mEq/L 06/28/2019 18:17 [facility] CO2 29 22 - 32 mEq/L 06/28/2019 18:17 [facility] Total Alkaline Phosphatase 94 38 - 126 U/L 06/28/2019 18:17 [facility] Bilirubin, Total 0.6 <1.4 mg/dl 06/28/20 18:17 [facility] AST 21 15 - 46 U/L 06/28/2019 18:17 [facility] ALT 22 <53 U/L 06/28/2019 18:17 [facility] Albumin 3.6 3.4 - 4.9 g/dl 06/28/2019 18:17 [facility] Total Protein 6.4 6.3 - 8.2 g/dl 06/28/2019 18:17 [facility] Creatinine 0.88 0.52 - 1.04 mg/dl 06/28/2019 18:17 [facility] GFR, Calculated 73 >60 ml/min/1.7 3m2 06/28/2019 18:17 [facility] Comment: eGFR calculated using CKD-EPI equation for non Americans. Multiply eGFR by 1.16 for Americans. BUN 12 10 - 26 mg/dl 06/28/2019 18:17 [facility] Calcium 8.8 8.5 - 10.5 mg/dl 06/28/2019 18:17 [facility] Calculated Calcium 9.1 8.5 - 10.5 mg/dl 06/28/2019 18:17 [facility] Glucose, Serum 107(H) 70 - 100 mg/dl 06/28/2019 18:17 [facility] Magnesium 1.9 1.7 - 2.8 mg/dl 06/28/2019 18:17 [facility] Blood specimen (specimen) BLOOD SPECIMEN / Unknown 06/28/2019 16:12 EDT 06/28/2019 17:41 EDT us Starr Paige MD CHEMISTRY & BLOOD GAS ORDER YANN Final Result [facility] [address] [place] [address] * (ABNORMAL) COMPLETE BLOOD COUNT AND DIFFERENTIAL (06/28/2019 16:12 EDT) WBC 0.92(LL) 4.0 - 12.4 K/cmm 06/28/2019 18:11 [facility] RBC 3.87 3.86 - 5.04 M/cmm 06/28/2019 18:11 [facility] Hemoglobin 12.0 11.6 - 15.2 gm/dl 06/28/2019 18:11 [facility] HCT 36.2 34.9 - 44.4 % 06/28/2019 18:11 [facility] MCV 94 81 - 98 fl 06/28/2019 18:11 [facility] MCH 31.0 26.7 - 33.3 pg 06/28/2019 18:11 [facility] MCHC 33.1 32.1 - 35.9 gm/dl 06/28/2019 18:11 [facility] RDW-CV 16.4(H) <14.7 % 06/28/2019 18:11 [facility] RDW-SD 56.4(H) <50.4 fl 06/28/2019 18:11 [facility] PLT 34(L) 141 - 377 K/cmm 06/28/2019 18:11 [facility] MPV 11.1 9.5 - 12.7 fl 06/28/2019 18:11 [facility] Neutrophils 81.0 % 06/28/2019 18:57 [facility] Lymphocytes 15.0 % 06/28/2019 18:57 [facility] Monocytes 4.0 % 06/28/2019 18:57 [facility] ABS Neutrophils 0.74(L) 2.20 - 8.85 K/cmm 06/28/2019 18:57 EDT [facility] ABS Lymphs 0.14(L) 1.09 - 3.30 K/cmm 06/28/2019 18:57 EDT [facility] ABS Monocytes 0.04(L) 0.1 - 0.8 K/cmm 06/28/2019 18:57 EDT [facility] Type of Diff: Manual 06/28/2019 18:57 EDT [facility] Blood specimen (specimen) BLOOD SPECIMEN / Unknown 06/28/2019 16:12 EDT 06/28/2019 17:41 EDT us Starr Paige MD PACKAGES & DNA PROBE ORDERA BLES Final Result [facility] [address] [place] [address] documented in this encounter Visit Diagnoses Diagnosis Pancytopenia ([facility]-CMS)- Primary Other pancytopenia documented in this encounter Care Teams Knitted Goods Shaper Relationship Specialty Start Date End Date Alma Farfan MD PCP - General 03/14/19 05/21/20 documented as of this encounter
--- OUTSIDE RECORDS SUMMARY | 2024-11-22 17:25 | XMS_ITS | Encounter Summary ---
Author Organization [facility] Address [address] [place] [address] Care Team Providers Care Driver Salesman Name Role Phone Alma Farfan MD Primary Care Provider [phone] [phone] Encounter Details Date Type Department Care Team (Late st Contact Info) Description 05/14/2019 Documentation Visit [facility] G[facility]ology - [facility] [address] [place] [address] Micheal Moseley MD PhD [address] [place] [address], [address] [place] [address] Social History Tobacco Use Types [...] Author No 08/24/2017 23:43 EDT Inderjit Queen, KENN * Are you blind or do [...] Inderjit Radford RN documented in this encounter Progress Notes * Keith Scott - 05/14/[address] Moseley, he is unaware of any need for the patient to come back in to see him. If patient calls to reschedule office visit, please have nurse speak with patient prior to rescheduling. If a new referral comes over from PCP, please give to to review. documented in this encounter Plan of Treatment Upcoming Encounters Date Type Department Care Team (Late st Contact Info) Description 01/04/2025 13:00 EST Office Visit [facility] Ophthalmology [address] [phone] Gagandeep Rome MD [address] [place] [phone] 02/11/2025 13:30 EDT Telemedicine [facility] Hematology & Oncology [address] 854331 Dana Padilla MD [address] [place] [address] 2 [place] [address] documented as of this encounter Visit Diagnoses Not on filedocumented in this encounter Care Teams Driver Salesman Relationship Specialty Start Date End Date Alma Farfan MD PCP - General 03/14/19 05/21/20 documented as of this encounter
--- OUTSIDE RECORDS SUMMARY | 2024-11-22 17:25 | XMS_ITS | Encounter Summary ---
Author Organization [facility] Address [address] [place] [address] Care Team Providers Care Electrical And Instrumentation Mechanic Name Role Phone Naty Evans MD Unavailable Alma Farfan MD Primary Care Provider [phone] [phone] Reason for Visit * Reason Onset Date Comments Appointment Related 03/29/2019 FUR EU Encounter Details Date Type Department Care Team (Late st Contact Info) Description 03/29/2019 Telephone [facility] Center Hematology & Oncology - [address] [phone] Starr Paige MD [address] [place] [address] Appointment Related (FUR EU) Social History Tobacco Use Types Packs/Day Years [...] * Telephone Encounter - Pebbles Osorio - 03/29/2019 1352 EDT Spoke to patient and scheduled her to see Dr. Paige on 03/30 at 10:30AM documented in this encounter Plan of Treatment Upcoming Encounters Date Type Department Care Team (Late st Contact Info) Description 01/04/2025 13:00 EST Office Visit [facility] Ophthalmology - [address] [address] Gagandeep Rome MD [address] [place] [address] 5 [place] [phone] 02/11/2025 13:30 EDT Telemedicine [facility] Hematology & Oncology [address] [address] Dana Padilla MD [address] [place] [address], [address] [place] [address] documented as of this encounter Visit Diagnoses Not on filedocumented in this encounter Care Teams Electrical And Instrumentation Mechanic Relationship Specialty Start Date End Date Naty Evans MD [address] [place] [address] [place] [phone] PCP - Alternate 09/30/17 04/11/19 Alma Farfan MD [address] [place] [address] [place] [phone] PCP - General 03/14/19 05/21/20 documented as of this encounter
--- OUTSIDE RECORDS SUMMARY | 2024-11-22 17:25 | XMS_ITS | Encounter Summary ---
Author Organization [facility] Address [address] [place] [address] Care Team Providers Care Tongue And Groove Machine Setter Name Role Phone Alma Farfan MD Primary Care Provider [phone] [phone] Reason for Visit * Reason Comments Infusion first of 2 doses of Injectafer Encounter Details Date Type Department Care Team (Latest Contact Info) Description 04/17/2019 13:48 EDT - 04/17/2019 23:59 EDT Hospital Encounter [facility] - [address] [address] Unknown, Provider, Starr Hobbs MD [address] [place] [address] Nurse Rn, Infusion Hematuria, gross (Primary Dx) Discharge Disposition: Auto Discharge Social History Tobacco Use Types Packs/Day Years Used Date Smoking Tobacco: Every Day Cigarettes 0.5 20 Smokeless Tobacco: Never Tobacco Cessation:Counseling Given: Yes Alcohol Use Standard Drinks/Week Comments [...] Reading Time Taken Comments Blood Pressure 100/51 04/17/2019 1510 EDT Pulse 62 04/17/2019 1510 EDT Temperature 35.7 ??C (96.3 ??F) 04/17/2019 1446 EDT Respiratory Rate 18 04/17/2019 1510 EDT Oxygen Saturation - - Inhaled Oxygen [...] documented in this encounter Discharge Diagnoses Diagnosis R31.0 Gross hematuria-R31.0[ICD-10-CM] documented in this encounter Medications at Time [...] Auto Discharge Home documented in this encounter Progress Notes * Neema Paige RN - 04/17/2019 1427 EDT Tara Yun admitted to [facility] infusion service for first of two Injectafer doses. Verified Patient's name and date of . Infused medication, pt then waiting in clinic for 30 minutes observation. VSS PIV then removed. Pressure held x 10 minutes due to low platelet count. No bleeding at IV site when discharged. Drug information sheet given to pt. Confirmed next appointment. documented in this encounter Plan of Treatment Upcoming Encounters Date Type Department Care Team (Late st Contact Info) Description 01/04/2025 13:00 EST Office Visit [facility] Ophthalmology - [address] [phone] Gagandeep Rome MD [address] [place] [address], [facility] [address] [place] [phone] 02/11/2025 13:30 EDT Telemedicine [facility] Hematology & Oncology [address] [phone] Dana Padilla MD [address] [place] [address], [facility] [address] [place] [address] documented as of this encounter Visit Diagnoses Diagnosis Hematuria, gross- Primary Gross hematuria documented in this encounter Administered Medications Inactive Administered Medications - up to 3 most recent administrations Medication Order MAR Action Action Date Dose Rate Site ferric carboxymaltose (INJECTAFER) 750 mg in sodium chloride (NS) 0.9 % 250 mL IVPB 750 mg, intravenous, Administer over 20 Minutes, NOW X1, 1 dose, On 04/17/19 at 1330, STATIndications:Hematuria, gross Given 04/17/2019 14:22 EDT 750 mg documented in this encounter Orders Medications Ordered That Luc ht Not Have Been Administered Count Last Ordered Date First Ordered Date ferric carboxymaltose (INJEC TAFER) 750 mg in sodium chloride (NS) 0.9 % 250 mL IVPB 1 04/17/2019 documented in this encounter Care Teams Tongue And Groove Machine Setter Relationship Specialty Start Date End Date Alma Farfan MD PCP - General 03/14/19 05/21/20 documented as of this encounter
--- OUTSIDE RECORDS SUMMARY | 2024-11-22 17:25 | XMS_ITS | Encounter Summary ---
Author Organization [facility] Address [address] [place] [address] Care Team Providers Care Folder Machine Name Role Phone Naty Evans MD Unavailable Aj Issa MD Primary Care Provider + Reason for Visit * Reason Onset Date Comments Fatigue 02/26/2019 Discuss Test Results 02/26/2019 lab,2.15,uv m Encounter Details Date Type Department Care Team (Late st Contact Info) Description 02/26/2019 Telephone [facility] Cancer Center Hematology & Oncology - [facility] [address] [place] [address] Starr Paige MD [address] [place] [phone] Fatigue; Discuss Test Results (lab,2.15,uv) Social History Tobacco Use Types Packs/Day Years [...] of Assessment Author No 08/24/2017 23:43 Inderjit Radfodr RN * Because of a physical, mental, [...] * Telephone Encounter - Pebbles Osorio - 02/26/2019 1515 EDT Spoke to patient and scheduled her to see Dr. Paige on 06/22/19 at 4PM and put her on wait list for sooner appointment. * Telephone Encounter - Susan Hilliard - 02/26/2019 1319 EDT Per pt, would like to schedule to be seen for fatigue and low platelet and white count from 2.15 [facility] results. Please call the pt to schedule and with any questions/concerns. documented in this encounter Plan of Treatment Upcoming Encounters Date Type Department Care Team (Late st Contact Info) Description 01/04/2025 13:00 EST Office Visit [facility] Ophthalmology - [place] [address] Gagandeep Rome MD [address] [facility], Level [address] [place] [phone] 02/11/2025 13:30 EDT Telemedicine [facility] Cancer Center Hematology & Oncology - [address] [phone] Dana Padilla MD 111 [facility], [address] [place] [phone] documented as of this encounter Visit Diagnoses Not on filedocumented in this encounter Care Teams Folder Machine Relationship Specialty Start Date End Date Naty Evans MD [address] [place] [address] [place] [phone] PCP - Alternate 09/30/17 04/11/19 Aj Issa MD [address] [place] [address] [address] [place] [address] PCP - General 07/29/18 03/13/19 documented as of this encounter
--- OUTSIDE RECORDS SUMMARY | 2024-11-22 17:25 | XMS_ITS | Encounter Summary ---
Author Organization [facility] Address [address] [place] [address] Care Team Providers Care Joint Supervisor Name Role Phone Alma Farfan MD Primary Care Provider [phone] [phone] Reason for Visit * Reason Comments Infusion second Injectafer Encounter Details Date Type Department Care Team (Latest Contact Info) Description 05/01/2019 13:30 EDT - 05/01/2019 14:30 EDT Hospital Encounter [facility] - [address] [address] Unknown, Provider, Starr Hobbs MD [address] [place] [address] Nurse Rn, Infusion Hematuria, gross (Primary Dx) Discharge Disposition: Auto Discharge Social History Tobacco Use Types Packs/Day Years Used Date Smoking Tobacco: Every Day Cigarettes 1 20 Smokeless Tobacco: Never Tobacco Cessation:Ready to [...] Reading Time Taken Comments Blood Pressure 104/54 05/01/2019 1424 EDT Pulse 76 05/01/2019 1424 EDT Temperature 35.9 ??C (96.6 ??F) 05/01/2019 1337 EDT Respiratory Rate 18 05/01/2019 1424 EDT Oxygen Saturation - - Inhaled Oxygen [...] encounter Discharge Diagnoses Diagnosis D61.818 Other pancytopenia-D61.818[ICD-10-CM] R31.0 Gross hematuria-R31.0[ICD-10-CM] R07.89 Other chest pain-R07.89[ICD-10-CM] J45.41 Moderate persistent asthma with (acute) exacerbation-J45.41[ICD-10-CM] documented in this encounter Medications at Time [...] Progress Notes * Neema Paige RN - 05/01/2019 1410 EDT Tara Yun admitted to [facility] infusion service for second dose of Injectafer. Verified Patient's name and date of . Injectafer started at 1405. At 1424 Pt complained of head and chest pressure. 6- 7/10 ( moderate) . Injectafer stopped.NS running. Dr. Keenan Carmichael from Urgent Care in to evaluate pt. At 1432 O2 sat 95 % Room Air. Chest pressure subsided now 2/10. At 1440 IV to Saline lock. Patient transferred to Urgent Care. Report given to Bekah Ayala RN. Dr. Paige was paged and informed . documented in this encounter Plan of Treatment Upcoming Encounters Date Type Department Care Team (Late st Contact Info) Description 01/04/2025 13:00 EST Office Visit [facility] Ophthalmology - [address] [phone] Gagandeep Rome MD [address] [place] [address], [facility] 5 [place] [address] 02/11/2025 13:[address] [facility] Hematology & Oncology [address] [phone] Dana Padilla MD [address] [place] [address], [facility] 2 [place] [address] documented as of this encounter Visit Diagnoses [...] 20 Minutes, NOW X1, 1 dose, On Tue05/01/19 at 1200, RoutineIndications:Hematuria, gross Given 05/01/2019 14:05 EDT 750 mg documented in this encounter Orders Medications Ordered That Luc ht Not Have Been Administered Count Last Ordered Date First Ordered Date sodium chloride 0.9 % (flush) flush 10 mL 1 05/01/2019 documented in this encounter Care Teams Joint Supervisor Relationship Specialty Start Date End Date Alma Farfan MD PCP - General 03/14/19 05/21/20 documented as of this encounter
--- OUTSIDE RECORDS SUMMARY | 2024-11-22 17:25 | XMS_ITS | Encounter Summary ---
Author Organization [facility] Address [address] [place] [address] Care Team Providers Care Fluorescent Solution Mixer Name Role Phone Alma Farfan MD Primary Care Provider [phone] Encounter Details Date Type Department Care Team (Late st Contact Info) Description 05/02/2019 Orders Only [facility] Hematology & Oncology - [facility] [address] [place] [address] Starr Paige MD [address] [place] [phone] Social History Tobacco Use Types Packs/Day [...] Date of Assessment Author No 03/03/2018 9:28 Inedrjit Radford RN documented as of this encounter [...] [facility] Ophthalmology [address] [phone] Gagandeep Rome MD [address] [place] [address] 5 [place] [phone] 02/11/2025 13:30 EDT Telemedicine [facility] Hematology & Oncology [address] 7[address] Dana Padilla MD [address] [place] [address], [address] [place] [phone] documented as of this encounter Visit Diagnoses Not on filedocumented in this encounter Care Teams Fluorescent Solution Mixer Relationship Specialty Start Date End Date Alma Farfan MD PCP - General 03/14/19 05/21/20 documented as of this encounter
--- OUTSIDE RECORDS SUMMARY | 2024-11-22 17:25 | XMS_ITS | Encounter Summary ---
Author Organization [facility] Address [address] [place] [address] Care Team Providers Care Head Of Precision Targeting Name Role Phone Naty Evans MD Unavailable Alma Farfan MD Primary Care Provider [phone] Reason for Referral * Prior Authorization (Routine/Next Available) - Authorization Not Required Specialty Diagnoses / Procedures Referred By Contac t Referred To Contact Diagnoses Pancytopenia ([facility]) Starr Paige MD Phone: tel: fax: Referral ID Status Reason Start Date Expiration Date Visits Requested Visits Authorized [id number] Authorization Not Required Other 04/09/2019 1 1 Question Answer Medication to be Prior Authorized: Injectafer 750 mg [facility] Precertification Request for Medications 04/09/2019 URGENT: No Medication Administration: IV, Clinic Patient Name: Tara Yun Patient : [id number] Ordering MD: Dr. Paige Nurse: KENN Pandey Phone: [phone] Is this a dosage change, renewal or a new medication? New Med Medication Start Date & Number of Cycles: As soon as PA done PT BSA: There is no height or weight on file to calculate BSA. What is the reason for taking this medication? Pancytopenia Is this an on label usage of this medication? Yes What is the patient's current drug regimen? NA Similar drugs patient has been on and failed? NA Please Prior Auth Medications Listed below: Injectafer 750 mg IV x2 , 1 week apart Encounter Details Date Type Department Care Team (Late st Contact Info) Description 04/09/2019 Orders Only [facility] Hematology & Oncology - [address] [address] Tess Pal RN Pancytopenia ([facility]) (Primary Dx) Social History Tobacco Use Types [...] Entry Date Author No 03/03/2018 9:28 EDT Queen, Inderjit, RN documented in this encounter Plan of Treatment Upcoming Encounters Date Type Department Care Team (Late st Contact Info) Description 01/04/2025 13:00 EST Office Visit [facility] Ophthalmology - [address] [phone] Gagandeep Rome MD [address] [place] [address], [facility] [address] [place] [phone] 02/11/2025 13:30 EDT Telemedicine [facility] Hematology & Oncology - [address] [phone] Dana Padilla MD [address] [place] [address], [facility] [address] [place] [phone] Scheduled Referrals Name Type Priority Associated Diagnoses Order Schedule AMB MEDICATION PRIOR AUTHORIZATION Outpatient Referral Routine Pancytopenia (HCC-CMS) Ordered: 04/09/2019 documented as of this encounter Visit Diagnoses Diagnosis Pancytopenia (HCC-CMS)- Primary Other pancytopenia documented in this encounter Care Teams Head Of Precision Targeting Relationship Specialty Start Date End Date Naty Evans MD [address] [place] [address] [place] [phone] PCP - Alternate 09/30/17 04/11/19 Alma Farfan MD [address] [place] [address] [place] [phone] PCP - General 03/14/19 05/21/20 documented as of this encounter
--- OUTSIDE RECORDS SUMMARY | 2024-11-22 17:25 | XMS_ITS | Encounter Summary ---
Author Organization [facility] Address [address] [place] [address] Care Team Providers Care Director Toxicology Name Role Phone Naty Evans MD Unavailable Aj Issa MD Primary Care Provider + Alma Farfan MD Primary Care Provider [phone] Reason for Referral * Radiology Services (Routine) - Closed Specialty Diagnoses / Procedures Referred By Contac t Referred To Contact Diagnoses Left knee pain, unspecified chronicity Procedures KNEES 3 VIEWS Tatyana [place] NP Phone: tel: fax: Referral ID Status Reason Start Date Expiration Date Visits Re quested Visits Authorized [id number] Closed 01/10/2019 1 1 * Radiology Services (Routine) - Closed Specialty Diagnoses / Procedures Referred By Contac t Referred To Contact Diagnoses Left knee pain, unspecified chronicity Procedures KNEE 4 OR MORE VIEWS Tatyana [place] NP Phone: tel: fax: Referral ID Status Reason Start Date Expiration Date Visits Re quested Visits Authorized [id number] Closed 01/10/2019 1 1 Encounter Details Date Type Department Care Team (Late st Contact Info) Description 01/10/2019 Orders Only [facility] Total Joint Program - [facility] [address] [place] [address] Tatyana [place] NP [address] [place] [address] Left knee pain, unspecified chronicity (Primary Dx) Social History Tobacco Use Types [...] [facility] Ophthalmology - [address] [address] Gagandeep Rome MD [address] [facility], Level [address] [place] [phone] 02/11/2025 13:30 EDT Telemedicine [facility] Hematology & Oncology - [address] [phone] Dana Padilla MD [address] [place] [address], [facility] [address] [place] [address] documented as of this encounter Procedures Procedure Name Priority Date/Time Associated Diagnosis Comments KNEE 4 OR MORE VIEWS Routine 01/11/2019 10:09 EST Left knee pain, unspecified chronicity KNEES 3 VIEWS Routine 01/11/2019 10:09 EST Left knee pain, unspecified chronicity documented in this encounter Results * KNEES 3 VIEWS (01/11/2019 10:09 EST) Anatomical Region Laterality Modality Other 01/11/2019 10:0 9 EST 01/11/2019 10:56 EST Narrative 01/11/2019 10:56 EST EXAM/TECHNIQUE: RIGHT KNEES 3 VIEWS, LEFT KNEE 4 OR MORE VIEWS ??01/11/2019 10:09 AM HISTORY: ?? M25.562-Pain in left knee-ICD-10; right for comparison COMPARISON: None. FINDINGS / IMPRESSION: Left knee: 4 views of the left knee show a 3 part total knee arthroplasty without evidence of hardware failure, loosening or periprosthetic fracture. There is a screw in the anterior tibia presumably related to a prior tibial tubercle transfer; please correlate with operative history. There is no sizable left knee joint effusion. Right knee: 3 views of the right knee show a 3 part total knee arthroplasty without evidence of hardware failure, loosening or periprosthetic fracture. The lack of a lateral view precludes assessment for joint effusion. Procedure Note Dom Mcintyre, - 01/11/2019 EXAM/TECHNIQUE: RIGHT KNEES 3 VIEWS, LEFT KNEE 4 OR MORE VIEWS 01/11/2019 10:09 AM HISTORY: M25.562-Pain in left knee-ICD-10; right for comparison COMPARISON: None. FINDINGS / IMPRESSION: Left knee: 4 views of the left knee show a 3 part total knee arthroplasty without evidence of hardware failure, loosening or periprosthetic fracture. There is a screw in the anterior tibia presumably related to a prior tibial tubercle transfer; please correlate with operative history. There is no sizable left knee joint effusion. Right knee: 3 views of the right knee show a 3 part total knee arthroplasty without evidence of hardware failure, loosening or periprosthetic fracture. The lack of a lateral view precludes assessment for joint effusion. Tatyana Washington NP IMG DIAGNOSTIC IMAGING ORDER YANN Final Result * KNEE 4 OR MORE VIEWS (01/11/2019 10:09 EST) Anatomical Region Laterality Modality Other 01/11/2019 10:0 9 EST 01/11/2019 10:56 EST Narrative 01/11/2019 10:56 EST EXAM/TECHNIQUE: RIGHT KNEES 3 VIEWS, LEFT KNEE 4 OR MORE VIEWS ??01/11/2019 10:09 AM HISTORY: ?? M25.562-Pain in left knee-ICD-10; right for comparison COMPARISON: None. FINDINGS / IMPRESSION: Left knee: 4 views of the left knee show a 3 part total knee arthroplasty without evidence of hardware failure, loosening or periprosthetic fracture. There is a screw in the anterior tibia presumably related to a prior tibial tubercle transfer; please correlate with operative history. There is no sizable left knee joint effusion. Right knee: 3 views of the right knee show a 3 part total knee arthroplasty without evidence of hardware failure, loosening or periprosthetic fracture. The lack of a lateral view precludes assessment for joint effusion. Procedure Note Dom Mcintyre, DO - 01/11/2019 EXAM/TECHNIQUE: RIGHT KNEES 3 VIEWS, LEFT KNEE 4 OR MORE VIEWS 01/11/2019 10:09 AM HISTORY: M25.562-Pain in left knee-ICD-10; right for comparison COMPARISON: None. FINDINGS / IMPRESSION: Left knee: 4 views of the left knee show a 3 part total knee arthroplasty without evidence of hardware failure, loosening or periprosthetic fracture. There is a screw in the anterior tibia presumably related to a prior tibial tubercle transfer; please correlate with operative history. There is no sizable left knee joint effusion. Right knee: 3 views of the right knee show a 3 part total knee arthroplasty without evidence of hardware failure, loosening or periprosthetic fracture. The lack of a lateral view precludes assessment for joint effusion. Tatyana Washington NP IMG DIAGNOSTIC IMAGING ORDER YANN Final Result documented in this encounter Visit Diagnoses Diagnosis Left knee pain, unspecified chronicity- Primary documented in this encounter Care Teams Director Toxicology Relationship Specialty Start Date End Date Naty Evans MD [address] [place] [address] [place] [phone] PCP - Alternate 09/30/17 04/11/19 Aj Issa MD [address] [place] [phone] PCP - General 07/29/18 03/13/19 Alma Farfan MD [address] [place] [phone] PCP - General 03/14/19 05/21/20 documented as of this encounter
--- OUTSIDE RECORDS SUMMARY | 2024-11-22 17:25 | XMS_ITS | Encounter Summary ---
Author Organization [facility] Address [address] [place] [address] Care Team Providers Care Chemical Checker Name Role Phone Alma Farfan MD Primary Care Provider [phone] Encounter Details Date Type Department Care Team (Latest Contact Info) Description 05/01/2019 Travel Social History Tobacco Use Types Packs/Day [...] [facility] Ophthalmology - [address] [phone] Gagandeep Rome MD [address] [place] [address] 5 [place] [phone] 02/11/2025 13:30 EDT Telemedicine [facility] Hematology & Oncology [address] [phone] Dana Padilla MD [address] [place] [address] 2 [place] [address] documented as of this encounter Visit Diagnoses Not on filedocumented in this encounter Care Teams Chemical Checker Relationship Specialty Start Date End Date Alma Farfan MD PCP - General 03/14/19 05/21/20 documented as of this encounter
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
--- OUTSIDE RECORDS SUMMARY | 2024-11-22 17:25 | XMS_ITS | Encounter Summary ---
Author Organization [facility] Address [address] [place] [address] Care Team Providers Care Tool And Fixture Repairer Name Role Phone Naty Evans MD Unavailable Alma Farfan MD Primary Care Provider [phone] Encounter Details Date Type Department Care Team (Latest Contact Info) Description 03/14/2019 13:51 EDT - 03/14/2019 23:59 EDT Hospital Encounter [address] [address] Alma Farfan MD [address] [place] [phone] Discharge Disposition: Auto Discharge Social History Tobacco [...] documented in this encounter Discharge Diagnoses Diagnosis K43.9 Ventral hernia without obstruction or gangrene-K43.9[ICD-10-CM] K74.60 Unspecified cirrhosis of liver-K74.60[ICD-10-CM] documented in this encounter Medications at Time [...] Office Visit [facility] Ophthalmology - [address] [phone] Gagandeep Rome MD [address] [place] [address], [address] [place] [phone] 02/11/2025 13:30 EDT Telemedicine [facility] Hematology & Oncology - [address] [phone] Dana Padilla MD [address] [place] [address], [facility] 2 [place] [address] documented as of this encounter Visit Diagnoses Not on filedocumented in this encounter Care Teams Tool And Fixture Repairer Relationship Specialty Start Date End Date Naty Evans MD [address] [place] [address] [place] [phone] PCP - Alternate 09/30/17 04/11/19 Alma Farfan MD [address] [place] [address] [place] [phone] PCP - General 03/14/19 05/21/20 documented as of this encounter
--- OUTSIDE RECORDS SUMMARY | 2024-11-22 17:25 | XMS_ITS | Encounter Summary ---
Author Organization [facility] Address [address] [place] [address] Care Team Providers Care Slope Runner Name Role Phone Alma Farfan MD Primary Care Provider [phone] Reason for Visit * Reason Comments Wound Check C/o bleeding from nichol ne marrow biopsy site starting this afternoon around 1500 after her biopsy at [facility]. Notes bleeding though 2 pairs of pants and 2 pads. Notes increased pain. No fever. Encounter Details Date Type Department Care Team (Late st Contact Info) Description 04/23/2019 22:22 EDT - 04/24/2019 1:25 EDT Emergency [facility] Emergency Department - Main [address] [id number] Jordan Arizmendi MD [address] [place] [address], [address] [place] [address] Emergency, MD Rolando History of bone marrow biopsy (Primary Dx); Bleeding disorder ([facility]) Discharge Disposition: Home or Self Care Social [...] Sign Reading Time Taken Comments Blood Pressure 131/69 04/24/2019 0110 EDT Pulse 80 04/23/20192225 EDT Temperature 36.8 ??C (98.2 ??F) 04/24/2019 011 EDT Respiratory Rate 14 04/24/2019 011 EDT Oxygen Saturation 99% 04/24/2019 011 EDT Inhaled Oxygen Concentration - - Weight 92.1 kg (203 lb) 04/23/20192225 EDT Height 165.1 cm (5' 5) 04/23/20192225 EDT Body Mass Index 33.78 04/23/20192225 EDT documented in this encounter Functional Status [...] documented in this encounter Discharge Diagnoses Diagnosis Z98.890 Other specified postprocedural states-Z98.890[ICD-10-CM] D69.9 Hemorrhagic condition, unspecified-D69.9[ICD-10-CM] R11.0 Nausea-R11.0[ICD-10-CM] R51 Headache-R51[ICD-10-CM] F17.210 Nicotine dependence, cigarettes, uncomplicated-F17.210[ICD-10-CM] N18.9 Chronic kidney disease, unspecified-N18.9[ICD-10-CM] D64.9 Anemia, unspecified-D64.9[ICD-10-CM] J45.909 Unspecified asthma, uncomplicated-J45.909[ICD-10-CM] Z79.899 Other detention (current) drug therapy-Z79.899[ICD-10-CM] Z88.6 Allergy status to analgesic agent status-Z88.6[ICD-10-CM] documented in this encounter Discharge Instructions * Discharge Instructions* Jordan Arizmendi MD, MD - 04/24/2019 1:15 EDT Thank you for coming to the ED at [facility] for your medical care. Whenever we see [...] donot hesitate to return. You were seen in the emergency department tonight for bleeding after a bone marrow biopsy. Your platelets and hemoglobin were relatively stable. You had resolution of the bleeding with pressure to the area with a cold ice pack. Return to the emergency department if you feel lightheaded or dizzy, you have recurrent bleeding, you have worsening pain in the area, or other concerning symptoms. documented in this [...] documented in this encounter ED Notes * Prema Ybarra RN - 04/23/2019 5783 EDT Pt refused tylenol d/t liver cirrhosis MD tami aware. Pt transferred to private room with HEPA filter in place d/t results of low WBC count. Report given to KENN Sexton. * Jordan Arizmendi MD, MD - 04/23/2019 2982 EDT I, Carmen Samson, am scribing for Jordan Arizmendi MD while he/she is personally performing the service. Carmen Samson 04/23/2019 23:43 I performed a history and exam of this patient and discussed the case with the resident. Any descrepency between my chart and the resident chart reflect differences in the history and exam that were present on my evaluation of the patient. I fully participated in the patient's care. My plan is outlined below. Chief complaint: Bleeding from biopsy site History: Tara Yun is a 58 y.o. female with a history of pancytopenia, obesity, and cirrhosisof the liver who presents to the ED today with persistent incisional bleeding following a bone marrow biopsy this afternoon. Patient reports she had the biopsy due to dropping platelet and WBC counts. She says she was sent home around 1600 with a dressing in place. She explains she has not changed the dressing and has had profuse bleeding from the site since going home, requiring her to change clothes multiple times. She currently endorses a headache and nausea. She denies any injury following the procedure, as well as fever, chills, cough, shortness of breath, chest pain, abdominal pain, vomiting, diarrhea, urinary symptoms, and dizziness. ROS: My standard 10 point review of systems for this complaint is otherwise negative. PMHx/PsugHx: Reviewed and updates as appropriate Social History: Patient is reportedly a current smoker, 1 PPD. PE Gen.: Non-toxic HEENT: NC/AT, MMM, conjunctiva and sclera normal, OP clear Neck: supple, full range of motion Lungs: CTAB Cardiac: RRR, No M Abdomen: Soft, non-tender abdomen, no guarding Skin: A wound covered with Tegaderm just left of the sacrum. No active bleeding. Not a lot of bruising around the site. Tenderness to palpation. Musculoskeletal: No deformities of the extremities, normal range of motion, no edema Neuro: Awake, alert, cooperative. Speaking in full sentences, cooperative. Psych: Normal affect. Differential diagnosis includes but is not limited to: Bleeding from thrombocytopenia, coagulopathyfrom liver disease. Less likely injury to a major vessel. Laboratory studies and imaging: Patient had labs that were reviewed independently by myself, significant for PLT stably low, and HCT/hemoglobin stably low. Assessment and plan: Tara Yun is a 58 y.o. female with a history of pancytopenia, and cirrhosis of the liver who presents to the ED today with persistent incisional bleeding following a bone marrow biopsy this afternoon. Exam was significant for tenderness to palpation over the biopsy wound site. Plan for labs and observation. Pt is placed on towel roll filled with ice to apply pressure tothe area and bleeding didn't resume. Stable for d/c ED course: Patient was informed of stable labs, and once the bleeding resolved with pressure and ice, the patient was amenable to discharge with instructions to follow up with her PCP. Prior to discharge usual and customary precautions were reviewed with the patient including follow-up instructions and reasons to return to the Emergency Department if condition worsens, does not improve as expected, or other new concerns arise. This documentation is recorded by Carmen Samson acting as Scribe under the direction and presenceof Jordan Arizmendi MD. Jordan Arizmendi MD: I personally performed the services recorded by the scribe in my presence. I confirm the scribe's documentation has been reviewed by me to accurately and completely record my work, treatment, procedures, and medical decision making. * Emigdio Davies - 04/23/2019 2322 EDT I, Emigdio Davies, notified Dr. Arizmendi of WBC 0.98 on 04/23/2019 at 23:22. * Anastasia Willams, KENN - 04/23/2019 8595 EDT Blood drawn via saline lock per protocol, tiger, blue, purple and pink tube(s) sent to lab per order. documented in this encounter Miscellaneous Notes * ED Resident - Saida Devlin MD - 04/23/2019 4025 EDT ED Resident Note Service Date: 04/23/2019 Admit Date: 04/23/2019 22:22 Primary Care Provider: Alma Farfan Chief Complaint: Bleeding from bone marrow biopsy site HPI Tara Yun is a 58 y.o. female with a PMHx of pancytopenia of unknown etiology (follows at [facility]), mild persistent asthma, cirrhosis, hypothyroidism, who presents to the ED for bleeding following bone marrow biopsy. Patient had bone marrow biopsy at 1500 today at [facility] for chronic pancytopenia since 2009. Since then, she reports soaking through three pair of pants with blood. No lightheadedness, dyspnea, chest pain. Some pain at biopsy site radiating down lateral left leg. Denies using ibuprofen, aspirin, or other blood thinners. This is her second bone marrow biopsy, the first being in 2009. She is scheduled for EGD/[place] this month to investigate chronic blood loss source. Gets IV iron infusions, last infusion being a week ago. Review of Systems A complete 10 point [...] ??? Alcohol use: No Alcohol/week: 0.0 oz Family History Problem Relation Age of Onset [...] [36.7 ??C (98.1 ??F)] (), Heart Rate: -- (), Pulse: [80] (), Resp: [18] (), BP: (129)/(65) (), SpO2: [100 %] (), Numeric Pain Level (Scale 1-10): 8 Weight: Weight : 92.1 kg (203 lb) Body mass index is 33.78 kg/m??. Physical Exam General: Resting comfortably. Alert and oriented. No acute distress. HEENT: Normocephalic, atraumatic. Eyes anicteric. MMM. Heart: Regular rate and rhythm. No murmurs. Lungs: Breathing comfortably on RA. CTA bilaterally. No rubs. Abdomen: Obese. Soft, non-tender, non-distended. No hepatosplenomegaly. Skin: Warm and dry. Left iliac crest marrow biopsy source with clear bandage and some dried blood; no active extravasation. Surrounding early bruising present. No fluctuance or mass appreciated. Neuro: Facial movements without deficits; no droop or dysarthria. Moving extremities against gravity. Labs Recent Labs 04/23/19 2246 WBC 0.98* RBC 3.89 HGB 11.2* HCT 33.8* MCV 87 MCH 28.8 MCHC 33.1 PLT 34* Recent Labs 04/23/19 2246 PROTIME 15.2* INR 1.3* PTT 32 Assessment & Plan Hgb at [facility] earlier today prior to BMBx was 11.0, PLT 34. Grossly unchanged now. Wound withoutactive extravasation after observation in ED. Hemodynamically stable. -Return to ED if symptoms worsen or fail to improve Saida Devlin MD 04/23/2019 23:34 documented in this encounter Plan of Treatment Upcoming Encounters Date Type Department Care Team (Late st Contact Info) Description 01/04/2025 13:00 EST Office Visit [facility] Ophthalmology - [address] [phone] Gagandeep Rome MD [address] [facility], [facility] [address] [place] [address] 02/11/2025 13:30 EDT Telemedicine [facility] - [address] [address] Dana Padilla MD 111 [facility], [facility] [address] [place] [address] documented as of this encounter Procedures Procedure Name Priority Date/Time Associated Diagnosis Comments ED/URGENT CARE ADD-ON STAT 04/23/2019 23:25 EDT ED/URGENT CARE ADD-ON STAT 04/23/2019 23:10 EDT HOLD SST Routine 04/23/2019 22:46 EDT HOLD BLUE TOP Routine 04/23/2019 22:46 EDT PTT Routine 04/23/2019 22:46 EDT PROTIME Routine 04/23/2019 22:46 EDT COMPLETE BLOOD COUNT AND DIFFERENTIAL STAT 04/23/2019 22:46 EDT BLOOD BANK HOLD Routine 04/23/2019 22:45 EDT TYPE AND SCREEN STAT 04/23/2019 22:45 EDT documented in this encounter Results * ED/URGENT CARE ADD-ON (04/23/2019 23:25 EDT) Tests to be added BB DRAW, TYPE AND SCREEN 04/23/2019 23:20 EDT [facility] Number for problems [id number] (ED) 04/23/2019 23:20 EDT [facility] TOPOGRAPHY UNKNOWN / Unknown 04/23/2019 23:25 EDT 04/23/2019 23:58 EDT us Jordan Arizmendi MD HEMATOLOGY & PF4 ORD ERABLES Final Result [facility] [address] [place] [address] * ED/URGENT CARE ADD-ON (04/23/2019 23:10 EDT) Tests to be added PROTIME, PTT 04/23/2019 23:10 EDT [facility] Number for problems [id number] (ED) 04/23/2019 23:10 EDT [facility] TOPOGRAPHY UNKNOWN / Unknown 04/23/2019 23:10 EDT 04/23/2019 23:13 EDT us Jordan Arizmendi MD HEMATOLOGY & PF4 ORD ERABLES Final Result Performing Organization Address City/[facility]/ZIP Co de Phone Number [facility] [address] [place] [address] * PTT (04/23/2019 22:46 EDT) PTT 32 26 - 37 secs 04/23/2019 23:30 EDT [facility] BLOOD SPECIMEN / Unknown 04/23/2019 22:46 EDT 04/23/2019 22:50 EDT us Jordan Arizmendi MD HEMATOLOGY & PF4 ORD ERABLES Final Result Performing Organization Address [facility] Phone Number [facility] [address] [place] [address] * (ABNORMAL) PROTIME (04/23/2019 22:46 EDT) Pro Time 15.2(H) 10.3 - 13.4 secs 04/23/2019 23:26 EDT [facility] I.N.R. 1.3(H) 0.9 - 1.1 Ratio 04/23/2019 23:26 EDT [facility] Comment: Moderate Intensity Coumadin INR = 2.0-3.0 Adjustments in anticoagulant therapy dose should be based upon the INR and NOT the Pro Time. BLOOD SPECIMEN / Unknown 04/23/2019 22:46 EDT 04/23/2019 22:50 EDT us Jordan Arizmendi MD HEMATOLOGY & PF4 ORD ERABLES Final Result Performing Organization Address City/[facility]/ZIP Co de Phone Number [facility] [address] [place] [address] * HOLD BLUE TOP (04/23/2019 22:46 EDT) Hold Blue Top Sample for coagulation will be discarded after 4 hours 04/23/2019 23:26 EDT [facility] Blood specimen (specimen) BLOOD SPECIMEN / Unknown 04/23/2019 22:46 EDT 04/23/2019 22:50 EDT us Jordan Arizmendi MD LAB INFO SERVICE AND SUPPORT & PHONE RESULT Final Result Performing Organization Address [facility]/ZIP Co de Phone Number [facility] [address] [place] [address] * HOLD SST (04/23/2019 22:46 EDT) Hold SST Hold for further testing. Specimen will be held for 5 days. 04/23/2019 22:44 EDT [facility] Blood specimen (specimen) BLOOD SPECIMEN / Unknown 04/23/2019 22:46 EDT 04/23/2019 22:50 EDT us Jordan Arizmendi MD LAB INFO SERVICE AND SUPPORT & PHONE RESULT Final Result Performing Organization Address City/[facility]/ZIP Co de Phone Number [facility] [address] [place] [address] * (ABNORMAL) COMPLETE BLOOD COUNT AND DIFFERENTIAL (04/23/2019 22:46 EDT) WBC 0.98(LL) 4.0 - 12.4 K/cmm 04/23/2019 23:13 [facility] RBC 3.89 3.86 - 5.04 M/cmm 04/23/2019 23:13 [facility] Hemoglobin 11.2(L) 11.6 - 15.2 gm/dl 04/23/2019 23:13 [facility] HCT 33.8(L) 34.9 - 44.4 % 04/23/2019 23:13 [facility] MCV 87 81 - 98 fl 04/23/2019 23:13 [facility] MCH 28.8 26.7 - 33.3 pg 04/23/2019 23:13 [facility] MCHC 33.1 32.1 - 35.9 gm/dl 04/23/2019 23:13 [facility] RDW-CV 16.4(H) <14.7 % 04/23/2019 23:13 [facility] RDW-SD 50.7(H) <50.4 fl 04/23/2019 23:13 [facility] PLT 34(L) 141 - 377 K/cmm 04/23/2019 23:13 [facility] MPV 10.2 9.5 - 12.7 fl 04/23/2019 23:13 [facility] Neutrophils 72.2 % 04/23/2019 23:47 [facility] % Bands 1.7 % 04/23/2019 23:47 [facility] Lymphocytes 20.9 % 04/23/2019 23:47 [facility] Monocytes 2.6 % 04/23/2019 23:47 [facility] Eosinophils 1.7 % 04/23/2019 23:47 [facility] Basophils 0.9 % 04/23/2019 23:47 [facility] ABS Neutrophils 0.71(L) 2.20 - 8.85 K/cmm 04/23/2019 23:47 [facility] ABS Bands 0.02 K/cmm 04/23/2019 23:47 [facility] ABS Lymphs 0.20(L) 1.09 - 3.30 K/cmm 04/23/2019 23:47 [facility] ABS Monocytes 0.03(L) 0.1 - 0.8 K/cmm 04/23/2019 23:47 [facility] ABS Eosinophils 0.02(L) 0.03 - 0.61 K/cmm 04/23/2019 23:47 [facility] ABS Basophils 0.01 0.01 - 0.11 K/cmm 04/23/2019 23:47 [facility] Type of Diff: Manual 04/23/2019 23:47 [facility] Blood specimen (specimen) BLOOD SPECIMEN / Unknown 04/23/2019 22:46 EDT 04/23/2019 22:50 EDT Jordan Arizmendi MD PACKAGES & DNA PROBE ORDERABLES Final Result Performing Organization Address [facility] Co de Phone Number [facility] [address] [place] [address] * TYPE AND SCREEN (04/23/2019 22:45 EDT) Antibody Screen Negative [facility] Comment: Patient is electronic crossmatch eligible. Units available upon request for transfusion. Specimen Expires: 04/26/2019 @ 23:59 [facility] ABO O [facility] Rh Factor Positive [facility] Blood specimen (specimen) 04/23/2019 22:45 EDT us Saida Devlin MD BLOOD BANK TESTS Final Result Performing Organization Address [facility] Co de Phone Number [facility] [address] [place] [phone] * BLOOD BANK HOLD (CLOT) (04/23/2019 22:45 EDT) Hold BB Spec will exp at 23:59, 3 days from collect date [facility] Blood specimen (specimen) 04/23/2019 22:45 EDT Jordan Arizmendi MD BLOOD BANK TESTS Fin al Result Performing Organization Address [facility] Co de Phone Number [facility] [address] [place] [phone] documented in this encounter Visit Diagnoses Diagnosis History of bone marrow biopsy- Primary Bleeding disorder (HCC-CMS) Unspecified hemorrhagic conditions documented in this encounter Discontinued Medications Medication Sig Discontinue Reason Start Date End Da te ibuprofen (ADVIL) 200 mg tablet Take 400 mg by mouth every 6 hours. Therapy completed 04/23/2019 documented as of this encounter Active and Recently Administered Medications Orders Medications Ordered That Luc ht Not Have Been Administered Count Last Ordered Date First Ordered Date acetaminophen (TYLENOL) tablet 650 mg 1 01/2019 documented in this encounter Care Teams Slope Runner Relationship Specialty Start Date End Date Alma Farfan MD PCP - General 03/14/19 05/21/20 documented as of this encounter
--- OUTSIDE RECORDS SUMMARY | 2024-11-22 17:25 | XMS_ITS | Encounter Summary ---
Author Organization [facility] Address [address] [place] [address] Care Team Providers Care Singing Teacher Name Role Phone Naty Evasn MD Unavailable Alma Farfan MD Primary Care Provider [phone] Encounter Details Date Type Department Care Team (Late st Contact Info) Description 03/30/2019 Phlebotomy Only [facility] [address] [place] [address] Sales Data Analyst, Outpatient Pancytopenia ([facility]-CMS) (Primary Dx) Social History Tobacco Use [...] Visit [facility] Ophthalmology - [address] [phone] Gagandeep Rome MD [address] [place] [address] [address] [place] [phone] 02/11/2025 13:[address] [facility] Hematology & Oncology - [address] [phone] Dana Padilla MD [address] [place] [address], [facility] [address] [place] [phone] documented as of this encounter Procedures Procedure Name Priority Date/Time Associated Diagnosis Comments COMPREHENSIVE METABOLIC PANEL (ONCOLOGY USE ONLY-INC MG) STAT 03/30/2019 11:35 EDT Pancytopenia (HCC-CMS) RETICULOCYTE COUNT STAT 03/30/2019 11 :35 EDT Pancytopenia (HCC-CMS) COMPLETE BLOOD COUNT AND DIFFERENTIAL STAT 03/30/2019 11:35 EDT Pancytopenia (HCC-CMS) TSH STAT 03/30/2019 11:35 EDT Pancytopenia (HCC-CMS) HAPTOGLOBIN Routine 03/30/2019 11:35 EDT Pancytopenia (HCC-CMS) FOLATE Routine 03/30/2019 11:35 EDT Pancytopenia (HCC-CMS) FERRITIN Routine 03/30/2019 11:35 EDT Pancytopenia (HCC-CMS) VITAMIN B12 Routine 03/30/2019 11:35 EDT Pancytopenia (HCC-CMS) documented in this encounter Results * (ABNORMAL) COMPLETE BLOOD COUNT AND DIFFERENTIAL (03/30/2019 11:35 EDT) WBC 1.08(L) 4.0 - 12.4 K/cmm 03/30/2019 12:03 [facility] RBC 3.94 3.86 - 5.04 M/cmm 03/30/2019 12:03 [facility] Hemoglobin 11.0(L) 11.6 - 15.2 gm/dl 03/30/2019 12:03 [facility] HCT 33.7(L) 34.9 - 44.4 % 03/30/2019 12:03 [facility] MCV 86 81 - 98 fl 03/30/2019 12:03 [facility] MCH 27.9 26.7 - 33.3 pg 03/30/2019 12:03 [facility] MCHC 32.6 32.1 - 35.9 gm/dl 03/30/2019 12:03 [facility] RDW-CV 15.6(H) <14.7 % 03/30/2019 12:03 [facility] RDW-SD 49.0 <50.4 fl 03/30/2019 12:03 [facility] PLT 37(L) 141 - 377 K/cmm 03/30/2019 12:03 [facility] MPV 10.8 9.5 - 12.7 fl 03/30/2019 12:03 [facility] Neutrophils 74.8 % 03/30/2019 12:34 [facility] Lymphocytes 17.4 % 03/30/2019 12:34 [facility] Monocytes 2.6 % 03/30/2019 12:34 [facility] Eosinophils 2.6 % 03/30/2019 12:34 [facility] Basophils 2.6 % 03/30/2019 12:34 [facility] ABS Neutrophils 0.81(L) 2.20 - 8.85 [facility] 03/30/2019 12:34 [facility] ABS Lymphs 0.19(L) 1.09 - 3.30 [facility] 03/30/2019 12:34 [facility] ABS Monocytes 0.03(L) 0.1 - 0.8 [facility] 03/30/2019 12:34 [facility] ABS Eosinophils 0.03 0.03 - 0.61 [facility] 03/30/2019 12:34 [facility] ABS Basophils 0.03 0.01 - 0.11 [facility] 03/30/2019 12:34 [facility] Basophilic Stippling Present in <2% of RBCs 03/30/2019 12:34 [facility] Toxic Granulation Present 019 12:34 [facility] Vacuolization Present 03/30/2019 12:34 [facility] Type of Diff: Manual 03/30/2019 12:34 [facility] Blood specimen (specimen) BLOOD SPECIMEN / Unknown 03/30/2019 11:35 EDT 03/30/2019 11:41 EDT us Starr Paige MD PACKAGES & DNA PROBE ORDERA BLES Final Result [facility] [address] [place] [address] * COMPREHENSIVE METABOLIC PANEL (ONCOLOGY USE ONLY-INC MG) (03/30/2019 11:35 EDT) Potassium 4.5 3.5 - 5.0 mEq/L 03/30/2019 12:04 [facility] Sodium 139 136 - 145 mEq/L 03/30/2019 12:04 [facility] Chloride 106 96 - 110 mEq/L 03/30/2019 12:04 [facility] CO2 27 22 - 32 mEq/L 03/30/2019 12:04 [facility] Total Alkaline Phosphatase 95 38 - 126 U/L 03/30/2019 12:04 [facility] Bilirubin, Total <0.5 <1.4 mg/dl 03/30/20 19 12:04 [facility] AST 18 15 - 46 U/L 03/30/2019 12:04 [facility] ALT 23 <53 U/L 03/30/2019 12:04 [facility] Albumin 3.6 3.4 - 4.9 g/dl 03/30/2019 12:04 [facility] Total Protein 6.3 6.3 - 8.2 g/dl 03/30/2019 12:04 [facility] Creatinine 0.83 0.52 - 1.04 mg/dl 03/30/2019 12:04 [facility] GFR, Calculated 78 >60 ml/min/1.7 3m2 03/30/2019 12:04 [facility] Comment: eGFR calculated using CKD-EPI equation for non Americans. Multiply eGFR by 1.16 for Americans. BUN 15 10 - 26 mg/dl 03/30/2019 12:04 [facility] Calcium 8.7 8.5 - 10.5 mg/dl 03/30/2019 12:04 [facility] Calculated Calcium 9.0 8.5 - 10.5 mg/dl 03/30/2019 12:04 [facility] Glucose, Serum 80 70 - 100 mg/dl 03/30/2019 12:04 [facility] Magnesium 1.7 1.7 - 2.8 mg/dl 03/30/2019 12:04 EDT [facility] Blood specimen (specimen) BLOOD SPECIMEN / Unknown 03/30/2019 11:35 EDT 03/30/2019 11:41 EDT us Starr Paige MD CHEMISTRY & BLOOD GAS ORDER YANN Final Result [facility] [address] [place] [address] * RETICULOCYTE COUNT (03/30/2019 11:35 EDT) Retic Ct (Uncorrected) 1.1 0.5 - 2.5 % 03/30/2019 12:03 EDT [facility] Blood specimen (specimen) BLOOD SPECIMEN / Unknown 03/30/2019 11:35 EDT 03/30/2019 11:41 EDT us Starr Paige MD HEMATOLOGY & PF4 ORDERABLES Final Result [facility] [address] [place] [address] * VITAMIN B12 (03/30/2019 11:35 EDT) Vitamin B-12 353 211 - 911 pg/ml 03/30/2019 13:57 EDT [facility] Blood specimen (specimen) BLOOD SPECIMEN / Unknown 03/30/2019 11:35 EDT 03/30/2019 11:41 EDT us Starr Paige MD CHEMISTRY & BLOOD GAS ORDER YANN Final Result [facility] [address] [place] [address] * FOLATE (03/30/2019 11:35 EDT) Folate 7.8 ng/ml 03/30/2019 12:44 EDT [facility] Comment: Deficient: ??Less than 3.4 ng/mL Indeterminate: ??3.4-5.4 ng/mL Normal: ??Greater than 5.4 ng/mL The results of this assay can be falsely elevated due to the consumption of Biotin. Blood specimen (specimen) BLOOD SPECIMEN / Unknown 03/30/2019 11:35 EDT 03/30/2019 11:41 EDT us Starr Paige MD CHEMISTRY & BLOOD GAS ORDER YANN Final Result Performing Organization Address City/[facility]/ZIP Co de Phone Number [facility] [address] [place] [address] * HAPTOGLOBIN (03/30/2019 11:35 EDT) Haptoglobin 61 32 - 197 mg/dL 03/30/2019 12:30 EDT [facility] Blood specimen (specimen) BLOOD SPECIMEN / Unknown 03/30/2019 11:35 EDT 03/30/2019 11:41 EDT us Starr aPige MD CHEMISTRY & BLOOD GAS ORDER YANN Final Result Performing Organization Address [facility]/ZIP Co de Phone Number [facility] [address] [place] [address] * FERRITIN (03/30/2019 11:35 EDT) Ferritin 24 10 - 291 ng/ml 03/30/2019 13:57 EDT [facility] Blood specimen (specimen) BLOOD SPECIMEN / Unknown 03/30/2019 11:35 EDT 03/30/2019 11:41 EDT us Starr Paige MD CHEMISTRY & BLOOD GAS ORDER YANN Final Result Performing Organization Address City/[facility]/ZIP Co de Phone Number [facility] [address] [place] [address] * TSH (03/30/2019 11:35 EDT) TSH 2.53 0.47 - 4.68 uIU/ml 03/30/2019 12:36 EDT [facility] Comment: The results of this assay can be falsely lowered due to the consumption of Biotin. Blood specimen (specimen) BLOOD SPECIMEN / Unknown 03/30/2019 11:35 EDT 03/30/2019 11:41 EDT us Starr Paige MD CHEMISTRY & BLOOD GAS ORDER YANN Final Result [facility] [address] [place] [address] documented in this encounter Visit Diagnoses Diagnosis Pancytopenia (HCC-CMS)- Primary Other pancytopenia documented in this encounter Care Teams Singing Teacher Relationship Specialty Start Date End Date Naty Evans MD [address] [place] [address] [place] [phone] PCP - Alternate 09/30/17 04/11/19 Alma Farfan MD [address] [place] [address] [place] [phone] PCP - General 03/14/19 05/21/20 documented as of this encounter
--- OUTSIDE RECORDS SUMMARY | 2024-11-22 17:25 | XMS_ITS | Encounter Summary ---
Author Organization [facility] Address [address] [place] [address] Care Team Providers Care District Director Name Role Phone Naty Evans MD Unavailable Aj Issa MD Primary Care Provider + Alma Farfan MD Primary Care Provider [phone] Emigdio Veronica MD Primary Care Provider + Starr Paige MD Unavailable [phone] Dana Padilla MD Unavailable Izabella Snowden [facility] Unavailable None, Provider Primary Care Provider UnavailGabriel Dacosta Primary Care Provider Mirna Guerrero Primary Care Provider + Reason for Visit * Reason Onset Date Comments Appointment Related 01/11/2019 PATIENT WAS A NO SHOW FOR THE VASCULAR LAB ON 01/11/19 Encounter Details Date Type Department Care Team (Late st Contact Info) Description 01/11/2019 Telephone Vascular Surgery and Endovascular Therapy - [facility] [address] [place] [address] Tatyana Washington, HARSH [address] [place] [phone] Appointment Related (PATIENT WAS A NO SHOW FOR THE VASCULAR LAB ON 01/11/19) Social History Tobacco Use Types Packs/Day Years [...] encounter Miscellaneous Notes * Telephone Encounter - Rossy Saleh - 01/11/2019 7575 EST PATIENT WAS A NO SHOW FOR THE VASCULAR LAB ON 01/11/19 documented in this encounter Plan of Treatment Upcoming Encounters Date Type Department Care Team (Late st Contact Info) Description 01/04/2025 13:00 EST Office Visit [facility] Ophthalmology - [address] [phone] Gagandeep Rome MD [address] [place] [address], Level [address] [place] [phone] 02/11/2025 13:[address] [facility] Hematology & Oncology [address] [phone] Dana Padilla MD [address] [place] [address], [facility] [address] [place] [phone] documented as of this [...] documented as of this encounter Care Teams District Director Relationship Specialty Start Date End Date Naty Evans MD [address] [place] [address] [place] [phone] PCP - Alternate 09/30/17 04/11/19 Aj Issa MD [address] [place] [phone] PCP - General 07/29/18 03/13/19 Alma Farfan MD [address] [place] [phone] PCP - General 03/14/19 05/21/20 Emigdio Veronica MD [address] [place] [phone] PCP - General Internal Medicine - Primary Care 05/22/20 02/21/24 None, Provider PCP - General 02/24/24 03/18/24 Gabriel Gandara PA PCP - General 03/19/24 09/11/24 Mirna Guerrero PA [address] [place] [address] PCP - General 09/12/24 Starr Paige MD [address] [place] [phone] Hematology 10/08/21 06/09/22 Dana Padilla MD [address] [facility], [facility], [address] [place] [phone] Hematology 01/13/22 06/09/22 Izabella Snowden, [facility] [address] [facility], 3rd [place] [address] Case Packer 02/21/23 05/03/24 documented as of this encounter
--- OUTSIDE RECORDS SUMMARY | 2024-11-22 17:25 | XMS_ITS | Encounter Summary ---
Author Organization [facility] Address [address] [place] [address] Care Team Providers Care Footwear Sales Leader Name Role Phone Alma Farfan MD Primary Care Provider [phone] Encounter Details Date Type Department Care Team (Late st Contact Info) Description 06/28/2019 Phlebotomy Only [facility] [place] [address] [place] [address] Elementary School Music Teacher, Outpatient Pancytopenia ([facility]-CMS) (Primary Dx) Social History [...] of Assessment Author No 03/03/2018 9:28 Inderjit aRdford RN documented as of this encounter Mental [...] [facility] Ophthalmology - [address] [phone] Gagandeep Rome MD [address] [place] [address] [address] [place] [phone] 02/11/2025 13:30 EDT Telemedicine [facility] Hematology & Oncology [address] [phone] Dana Padilla MD [address] [place] [address] [address] [place] [phone] documented as of this encounter Procedures Procedure Name Priority Date/Time Associated Diagnosis Comments COMPREHENSIVE METABOLIC PANEL (ONCOLOGY USE ONLY-INC MG) STAT 06/28/2019 16:12 EDT Pancytopenia (HCC-CMS) METHYLMALONIC ACID Routine 06/28/2019 16 :12 EDT Pancytopenia (HCC-CMS) COPPER, SERUM Routine 06/28/2019 16:12 EDT Pancytopenia (HCC-CMS) RETICULOCYTE COUNT STAT 06/28/2019 16 :12 EDT Pancytopenia (HCC-CMS) COMPLETE BLOOD COUNT AND DIFFERENTIAL STAT 06/28/2019 16:12 EDT Pancytopenia (HCC-CMS) LDH STAT 06/28/2019 16:12 EDT Pancytopenia (HCC-CMS) HAPTOGLOBIN Routine 06/28/2019 16:12 EDT Pancytopenia (HCC-CMS) FOLATE Routine 06/28/2019 16:12 EDT Pancytopenia (HCC-CMS) FERRITIN Routine 06/28/2019 16:12 EDT Pancytopenia (HCC-CMS) VITAMIN B12 Routine 06/28/2019 16:12 EDT Pancytopenia (HCC-CMS) documented in this encounter Results * (ABNORMAL) COMPLETE BLOOD COUNT AND DIFFERENTIAL (06/28/2019 16:12 EDT) WBC 0.92(LL) 4.0 - 12.4 K/cmm 06/28/2019 18:11 [facility] RBC 3.87 3.86 - 5.04 M/cmm 06/28/2019 18:11 [facility] Hemoglobin 12.0 11.6 - 15.2 gm/dl 06/28/2019 18:11 [facility] HCT 36.2 34.9 - 44.4 % 06/28/2019 18:11 [facility] MCV 94 81 - 98 fl 06/28/2019 18:11 [facility] MCH 31.0 26.7 - 33.3 pg 06/28/2019 18:11 [facility] MCHC 33.1 32.1 - 35.9 gm/dl 06/28/2019 18:11 [facility] RDW-CV 16.4(H) <14.7 % 06/28/2019 18:11 [facility] RDW-SD 56.4(H) <50.4 fl 06/28/2019 18:11 [facility] PLT 34(L) 141 - 377 K/cmm 06/28/2019 18:11 [facility] MPV 11.1 9.5 - 12.7 fl 06/28/2019 18:11 [facility] Neutrophils 81.0 % 06/28/2019 18:57 [facility] Lymphocytes 15.0 % 06/28/2019 18:57 [facility] Monocytes 4.0 % 06/28/2019 18:57 [facility] ABS Neutrophils 0.74(L) 2.20 - 8.85 K/cmm 06/28/2019 18:57 [facility] ABS Lymphs 0.14(L) 1.09 - 3.30 K/cmm 06/28/2019 18:57 [facility] ABS Monocytes 0.04(L) 0.1 - 0.8 K/cmm 06/28/2019 18:57 [facility] Type of Diff: Manual 06/28/2019 18:57 [facility] Blood specimen (specimen) BLOOD SPECIMEN / Unknown 06/28/2019 16:12 EDT 06/28/2019 17:41 EDT us Starr Paige MD PACKAGES & DNA PROBE ORDERA BLES Final Result [facility] [address] [place] [address] * (ABNORMAL) COMPREHENSIVE METABOLIC PANEL (ONCOLOGY USE ONLY-INC MG) (06/28/2019 16:12 EDT) Potassium 3.7 3.5 - 5.0 mEq/L 06/28/2019 18:17 [facility] Sodium 140 136 - 145 mEq/L 06/28/2019 18:17 [facility] Chloride 106 96 - 110 mEq/L 06/28/2019 18:17 [facility] CO2 29 22 - 32 mEq/L 06/28/2019 18:17 [facility] Total Alkaline Phosphatase 94 38 - 126 U/L 06/28/2019 18:17 [facility] Bilirubin, Total 0.6 <1.4 mg/dl 06/28/20 19 18:17 [facility] AST 21 15 - 46 U/L 06/28/2019 18:17 [facility] ALT 22 <53 U/L 06/28/2019 18:17 [facility] Albumin 3.6 3.4 - 4.9 g/dl 06/28/2019 18:17 [facility] Total Protein 6.4 6.3 - 8.2 g/dl 06/28/2019 18:17 [facility] Creatinine 0.88 0.52 - 1.04 mg/dl 06/28/2019 18:17 [facility] GFR, Calculated 73 >60 ml/min/1.7 3m2 06/28/2019 18:17 [facility] Comment: eGFR calculated using CKD-EPI equation for non Americans. Multiply eGFR by 1.16 for Americans. BUN 12 10 - 26 mg/dl 06/28/2019 18:17 [facility] Calcium 8.8 8.5 - 10.5 mg/dl 06/28/2019 18:17 [facility] Calculated Calcium 9.1 8.5 - 10.5 mg/dl 06/28/2019 18:17 [facility] Glucose, Serum 107(H) 70 - 100 mg/dl 06/28/2019 18:17 [facility] Magnesium 1.9 1.7 - 2.8 mg/dl 06/28/2019 18:17 [facility] Blood specimen (specimen) BLOOD SPECIMEN / Unknown 06/28/2019 16:12 EDT 06/28/2019 17:41 EDT us Starr Paige MD CHEMISTRY & BLOOD GAS ORDER YANN Final Result [facility] [address] [place] [address] * LDH (06/28/2019 16:12 EDT) LDH 320 313 - 618 U/L 06/28/2019 18:17 EDT [facility] Blood specimen (specimen) BLOOD SPECIMEN / Unknown 06/28/2019 16:12 EDT 06/28/2019 17:41 EDT us Starr Paige MD CHEMISTRY & BLOOD GAS ORDER YANN Final Result [facility] [address] [place] [address] * RETICULOCYTE COUNT (06/28/2019 16:12 EDT) Retic Ct (Uncorrected) 1.4 0.5 - 2.5 % 06/28/2019 18:11 EDT [facility] Blood specimen (specimen) BLOOD SPECIMEN / Unknown 06/28/2019 16:12 EDT 06/28/2019 17:41 EDT us Starr Paige MD HEMATOLOGY & PF4 ORDERABLES Final Result [facility] [address] [place] [address] * VITAMIN B12 (06/28/2019 16:12 EDT) Vitamin B-12 318 211 - 911 pg/ml 06/29/2019 11:09 EDT [facility] Blood specimen (specimen) BLOOD SPECIMEN / Unknown 06/28/2019 16:12 EDT 06/28/2019 17:41 EDT us Starr Paige MD CHEMISTRY & BLOOD GAS ORDER YANN Final Result [facility] [address] [place] [address] * FOLATE (06/28/2019 16:12 EDT) Folate 7.1 ng/ml 06/29/2019 11:09 EDT [facility] Comment: Deficient: ??Less than 3.4 ng/mL Indeterminate: ??3.4-5.4 ng/mL Normal: ??Greater than 5.4 ng/mL The results of this assay can be falsely elevated due to the consumption of Biotin. Blood specimen (specimen) BLOOD SPECIMEN / Unknown 06/28/2019 16:12 EDT 06/28/2019 17:41 EDT Starr Paige MD CHEMISTRY & BLOOD GAS ORDER YANN Final Result Performing Organization Address City/[facility] Co de Phone Number [facility] [address] [place] [address] * (ABNORMAL) HAPTOGLOBIN (06/28/2019 16:12 EDT) Haptoglobin 30(L) 32 - 197 mg/dL 06/29/2019 9:45 EDT [facility] Blood specimen (specimen) BLOOD SPECIMEN / Unknown 06/28/2019 16:12 EDT 06/28/2019 17:41 EDT Starr Paige MD CHEMISTRY & BLOOD GAS ORDER YANN Final Result Performing Organization Address [facility] Co de Phone Number [facility] [address] [place] [address] * FERRITIN (06/28/2019 16:12 EDT) Ferritin 184 10 - 291 ng/ml 06/29/2019 11:09 EDT [facility] Blood specimen (specimen) BLOOD SPECIMEN / Unknown 06/28/2019 16:12 EDT 06/28/2019 17:41 EDT us Starr Paige MD CHEMISTRY & BLOOD GAS ORDER YANN Final Result Performing Organization Address City/[facility] Co de Phone Number [facility] [address] [place] [address] * COPPER, SERUM (06/28/2019 16:12 EDT) Copper, Serum 0.98 0.75 - 1.45 mcg/mL 06/30/2019 11:01 EDT [facility] Comment: (Note) . ADDITIONAL INFORMATION This test was developed and its performance characteristics determined by [facility] in a manner consistent with CLIA requirements. This test has not been cleared or approved by the U.S. Food and Drug Administration. Performed by: [facility]: [facility] [address] [place], [place] [address] Blood specimen (specimen) BLOOD SPECIMEN / Unknown 06/28/2019 16:12 EDT 06/28/2019 17:41 EDT Starr Paige MD CHEMISTRY & BLOOD GAS ORDER YANN Final Result [facility] [address] [place] [address] * METHYLMALONIC ACID (06/28/2019 16:12 EDT) Methylmalonic Acid 0.28 <=0.40 nmol/mL 07/03/2019 14:09 EDT [facility] Comment: (Note) . ADDITIONAL INFORMATION This test was developed and its performance characteristics determined by [facility] in a manner consistent with CLIA requirements. This test has not been cleared or approved by the U.S. Food and Drug Administration. Performed or Referred by: [facility], [address] [place] [address] Blood specimen (specimen) BLOOD SPECIMEN / Unknown 06/28/2019 16:12 EDT 06/28/2019 17:41 EDT Starr Paige MD CHEMISTRY & BLOOD GAS ORDER YANN Final Result [facility] [address] [place] [address] documented in this encounter Visit Diagnoses Diagnosis Pancytopenia (HCC-CMS)- Primary Other pancytopenia documented in this encounter Care Teams Footwear Sales Leader Relationship Specialty Start Date End Date Alma Farfan MD PCP - General 03/14/19 05/21/20 documented as of this encounter
--- OUTSIDE RECORDS SUMMARY | 2024-11-22 17:25 | XMS_ITS | Encounter Summary ---
Author Organization [facility] Address [address] [place] [address] Care Team Providers Care Wastewater Analyst Lab Analyst Name Role Phone Alma Farfan MD Primary Care Provider [phone] Reason for Visit * Reason Comments Chest Pain Patient states, I w as having iron infusion that went to her head and then chest.. Encounter Details Date Type Department Care Team (Latest Contact Info) Description 05/01/2019 14:31 EDT - 05/01/2019 15:19 EDT Hospital Encounter [facility] - [address] [address] Cris Carmichael MD [address] [place] [phone] Unknown, Provider, Chest tightness (Primary Dx); Moderate persistent asthma with exacerbation; Pancytopenia ([facility]) Discharge Disposition: Home or Self Care Social [...] Sign Reading Time Taken Comments Blood Pressure 118/57 05/01/2019 1510 EDT Pulse 69 05/01/2019 1510 EDT Temperature 35.9 ??C (96.6 ??F) 05/01/2019 1510 EDT Respiratory Rate 20 05/01/2019 1510 EDT Oxygen Saturation 98% 05/01/2019 1510 EDT Inhaled Oxygen Concentration - - [...] documented in this encounter Discharge Diagnoses Diagnosis R07.89 Other chest pain-R07.89[ICD-10-CM] documented in this encounter Discharge Instructions * Discharge Instructions* Cris Carmichael MD - 05/01/2019 15:21 EDT Your chest pain has improved. This was likely asthma. I am not sure if this will prevent you from having other iron infusions. You were mild and had great improvement with albuterol. Follow-up with your PCP and your hematologists. documented in this encounter Medications at Time [...] Departure Means Destination Home or Self Care Walk-out Home documented in this encounter ED Notes * Cris Carmichael MD - 05/01/2019 1458 EDT DOS: 05/01/2019 Chief Complaint Patient presents with ??? Chest Pain Patient states, I was having iron infusion that went to her head and then chest.. The patient is a 58 y.o. female who presents today with Chest Pain (Patient states, I was having iron infusion that went to her head and then chest..) The patient is a 58-year-old female who was seen acutely in the infusion center after she developedsome chest pressure and tightness during her iron infusion. The infusion was stopped. She has a known history of moderate persistent asthma. She did use her inhalers this morning but it has been morethan 4 hours. She takes both Flovent twice daily and albuterol twice daily. She also developed a headache. She describes it as a pressure bandlike sensation around her head that went down into her face and then into her chest. She has no known history of heart disease. No nausea, no vomiting, no significant shortness of breath. She does not feel dizzy or sweaty. She does not have lower extremity edema. She is getting her iron infusions for her anemia portion of her pancytopenia. She did not have anything like this during the first infusion. The history is provided by the patient. Chest Pain Pain location: L chest Pain quality: pressure Pain radiates to: Does not radiate Pain severity now: 01/28. Onset quality: Sudden Duration: few minutes prior to being seen, iron infusion turned off. Timing: Constant Progression: Unchanged Chronicity: New Worsened by: Nothing Associated symptoms: fatigue Associated symptoms: no abdominal pain, no dizziness, no nausea, no palpitations, no shortness of breath and no vomiting Review of Systems Constitutional: Positive for fatigue. Negative for activity change. Respiratory: Positive for chest tightness. Negative for shortness of breath and wheezing. Cardiovascular: Positive for chest pain. Negative for palpitations and leg swelling. Gastrointestinal: Negative for abdominal pain, nausea and vomiting. Skin: Negative for color change. Neurological: Negative for dizziness. No current facility-administered medications [...] 25 mcg by mouth daily. Unknown dose Facility-Administered Medications Ordered in Other Encounters Medication Dose Route Frequency Provider Last Rate Last Dose ??? sodium chloride 0.9 % (flush) flush 10 mL 10 mL intercatheter PRN Starr Paige MD Allergies Allergen Reactions ??? Morphine Anaphylaxis ??? [...] Per Dr Amelia Tijerina and notes from [facility] patient misconstrued information to several providers about [...] Per Dr Amelia Tijerina and notes from [facility] patient misconstrued information to several providers about [...] Clotting Disorder Father ??? Diabetes Brother BP 118/57 Pulse 69 Temp 96.6 ??F (35.9 ??C) Resp 20 SpO2 98% Physical Exam Constitutional: She is oriented to person, place, and time. She appears well- nourished. No distress. HENT: Head: Atraumatic. Cardiovascular: Normal rate and regular rhythm. Pulmonary/Chest: Effort normal. No accessory muscle usage or stridor. No respiratory distress. She has wheezes (bilateral faint, good air movement). Musculoskeletal: Right lower leg: She exhibits no edema. Left lower leg: She exhibits no edema. Neurological: She is alert and oriented to person, place, and time. Skin: Skin is dry. Capillary refill takes less than 2 seconds. Psychiatric: She has a normal mood and affect. Nursing note and vitals reviewed. Consult orders: None PCP: Alma Farfan No results found for this visit on 05/01/19. Radiology orders: None Imaging Results None EKG 12-LEAD Final Result PC Site Test Date: 2019-05-01 Pat Name: TARA BOOTHE Department: [facility] Room: [facility] Gender: Female Mica Paster: : 1960 Requested By: PANFILO Rodriguez Order Number: [id number] Reading MD: CRIS CARMICHAEL MD Measurements Intervals [place] Rate: 58 P: 48 IN: 161 QRS: 51 QRSD: 91 T: 30 QT: 431 QTc: 426 Interpretive Statements SINUS BRADYCARDIA Automated Interpretation. Provider Interpretation to follow. Compared to ECG 01/03/2019 16:11:17 Sinus tachycardia no longer present T-wave abnormality no longer present Possible ischemia no longer present I reviewed the tracing and have either agreed or edited the findings in this report. Electronically Signed On 05-01-2019 15:35:19 EDT by CRIS CARMICHAEL MD. Procedures URGENT CARE COURSE A medical screening exam was performed. The patient had an acute episode of mild headache and chestpressure during her iron infusion. The infusion was stopped. On assessment she had some very mild wheezing bilaterally but normal vital signs. EKG was normal except for mild sinus bradycardia at 58 bpm. She was given an albuterol nebulizer treatment with good relief. Wheezing gone on recheck. Vitals remained stable. She was considered safe to go. She was discharged in good condition. ASSESSMENT AND PLAN Final diagnoses: Chest tightness Moderate persistent asthma with exacerbation Pancytopenia ([facility]) No supervision required. DISPOSITION: Discharged The patient's pain was managed to an adequate level weighing risk vs. benefit of further medications. Upon departure from [facility], the patient's pain was 0 on a zero to ten scale. Any further pain treatment will be at the discretion of the provider following up with the patient based on their clinical assessment . Condition at departure from the [facility] : Good MDM 05/01/2019 15:35 * Kristen Pope MA - 05/01/2019 1448 EDT 12 Lead EKG Performed by KRISTEN POPE MA and shown to Dr Carmichael. documented in this encounter Plan of Treatment Upcoming Encounters Date Type Department Care Team (Late st Contact Info) Description 01/04/2025 13:00 EST Office Visit [facility] - [address] [phone] Gagandeep Rome MD [address] [place] [address], [facility] [address] [place] [address] 02/11/2025 13:30 EDT Telemedicine [facility] Hematology & Oncology [address] [phone] Dana Padilla MD [address] [place] [address], [facility] [address] [place] [phone] documented as of this encounter Procedures Procedure Name Priority Date/Time Associated Diagnosis Comments ECG REPORT - SCANNED 05/01/2019 15:40 EDT EKG 12-LEAD STAT 05/01/2019 14:44 EDT documented in this encounter Results * ECG REPORT - SCANNED (05/01/2019 15:40 EDT) 05/01/2019 15:4 0 EDT us Scan 2 Wind Turbine Mechanic PROCEDURE/MINOR SURGICAL OR DERABLES Final Result * EKG 12-LEAD (05/01/2019 14:44 EDT) 05/01/2019 14:4 4 EDT Narrative [facility] EKG - 05/01/2019 15:35 EDT ? PC Site ? Test Date: ?2019-05-01 Pat Name: ? PHYLISS BOOTHE ?Department: ?? [facility] ? Room: ? [facility] Gender: ? Female ? Mica Paster: ?? : ?1960 ? Requested By: PANFILO MCDERMOTT B Order Number: [id number] ? Reading MD: ?? CRIS CARMICHAEL MD ? Measurements Intervals ?[place] ? Rate: ? 58 ? P: ?48 IN: ? 161 ?QRS: ?51 QRSD: ? 91 ? T: ?30 QT: ? 431 ? QTc: ?426 ? Interpretive Statements SINUS BRADYCARDIA Automated Interpretation. ??Provider Interpretation to follow. Compared to ECG 01/03/2019 16:11:17 Sinus tachycardia no longer present T-wave abnormality no longer present Possible ischemia no longer present I reviewed the tracing and have either agreed or edited the findings in this report. Electronically Signed On 05-01-2019 15:35:19 EDT by CRIS CARMICHAEL MD. Procedure Note Cris Carmichael MD - 05/01/2019 Site Test Date: 2019-05-01 Pat Name: TARA BOOTHE Department: [facility] Room: [facility] Gender: Female Mica Paster: : 1960 Requested By: PANFILO Rodriguez Order Number: [id number] Reading MD: CRIS CARMICHAEL MD Measurements Intervals [place] Rate: 58 P: 48 IN: 161 QRS: 51 QRSD: 91 T: 30 QT: 431 QTc: 426 Interpretive Statements SINUS BRADYCARDIA Automated Interpretation. Provider Interpretation to follow. Compared to ECG 01/03/2019 16:11:17 Sinus tachycardia no longer present T-wave abnormality no longer present Possible ischemia no longer present I reviewed the tracing and have either agreed or edited the findings inthis report. Electronically Signed On 05-01-2019 15:35:19 EDT by ARNULFO PHIPPS. us Cris Carmichael MD CARDIAC ECG ORDERABL ES Final Result [facility] EKG documented in this encounter Visit Diagnoses Diagnosis Chest tightness- Primary Other chest pain Moderate persistent asthma with exacerbation Unspecified asthma, with exacerbation Pancytopenia ([facility]) Other pancytopenia documented in this encounter Administered Medications Inactive Administered Medications - up to 3 most recent administrations Medication Order MAR Action Action Date Dose Rate Site albuterol (ACCUNEB) nebulizer solution 2.5 mg 2.5 mg, nebulization, NOW X1, 1 dose, On Tue05/01/19 at 1445, Routine Given 05/01/2019 14:55 EDT 2.5 mg documented in this encounter Active and Recently Administered Medications Times are shown in EDT. Scheduled Medication Order 04/29/2019 04/30/2019 05/01/2019 albuterol (ACCUNEB) nebulizer solution 2.5 mg (COMPLETED) 2.5 mg, nebulization, NOW X1, 1 dose, On Tue05/01/19 at 1445, Routine 1455 (Given - Provid er: Aliza Castillo RN) documented in this encounter Orders Medications Ordered That Luc ht Not Have Been Administered Count Last Ordered Date First Ordered Date albuterol (ACCUNEB) nebulize r solution 2.5 mg 1 05/01/2019 documented in this encounter Care Teams Wastewater Analyst Lab Analyst Relationship Specialty Start Date End Date Alma Farfan MD PCP - General 03/14/19 05/21/20 documented as of this encounter
--- OUTSIDE RECORDS SUMMARY | 2024-11-22 17:25 | XMS_ITS | Encounter Summary ---
Author Organization [facility] Address [address] [place] [address] Care Team Providers Care Inspector Salvage Name Role Phone Naty Evans MD Unavailable Aj Issa MD Primary Care Provider + Reason for Referral * PT/OT/ST (Routine) - Closed Specialty Diagnoses / Procedures Referred By Serene huitron Referred To Contact Diagnoses Acute pain of left knee History of total knee arthroplasty, left Pain of left calf Tatyana [place] NP Phone: tel: fax: Referral ID Status Reason Start Date Expiration Date V isits Requested Visits Authorized [id number] Closed Specialty Services Required 01/11/2019 1 1 Question Answer Reason for Request: left knee pain x3 weeks, deconditioning, history of left TKA Comments Eval and Treat: knee pain and dysfunction. Goals: to restore core & lower extremity ROM, strength, and stability. Neuromuscular rehabilitation: balance/proprioception/muscle education. Instruct activity modification and HEP. Utilize pool-based program prn for low-impact, if land- based program is not well tolerated. Manual treatments/anti-inflammatory modalities as tolerated. * Vascular Lab (Routine) - Closed Specialty Diagnoses / Procedures Referred By Serene huitron Referred To Contact Diagnoses Pain of left calf Procedures VL LOWER VENOUS (DVT) UNILATERAL Tatyana [place] NP Phone: tel: fax: Referral ID Status Reason Start Date Expiration Date Visits Re quested Visits Authorized [id number] Closed 01/11/2019 1 1 Reason for Visit * Reason Comments New Patient Visit left knee pain Encounter Details Date Type Department Care Team (Late st Contact Info) Description 01/11/2019 10:00 EST Office Visit [facility] Total Joint Program - [address] [place] [address] Tatyana [place] NP [address] [place] [address] History of total knee arthroplasty, left (Primary Dx); Pain of left calf; Acute pain of left knee Discharge Disposition: Auto Discharge Social History Tobacco [...] documented in this encounter Discharge Diagnoses Diagnosis M17.0 Bilateral primary osteoarthritis of knee-M17.0[ICD-10-CM] Z96.653 Presence of artificial knee joint, bilateral-Z96.653[ICD-10-CM] Z96.652 Presence of left artificial knee joint-Z96.652[ICD-10-CM] M79.662 Pain in left lower leg-M79.662[ICD-10-CM] M25.562 Pain in left knee-M25.562[ICD-10-CM] documented in this encounter Discharge Disposition Disposition Code Departure Means Destination Auto Discharge documented in this encounter Progress Notes * Tatyana [place], MERE - 01/11/2019 1000 EST New patient visit. History of bilateral TKAs, left knee pain HPI: Tara Yun is a 58 year-old female with asthma, hypothyroidism, anxiety/depression, QUIROZ, pancytopenia, splenic vein thrombosis and history of bilateral total knee arthoplasties (2009, Dr. Rollins, [facility]) whom presents today as a new patient with left knee pain. She reports a history of11 knee surgeries between both knees, most recent surgery was bilateral TKAs. She is unsure exactlywhat surgeries she has had in the past. She now lives closer to [place] and chooses to establishcare here. She reports both knees were doing great until approximately 3 weeks ago, the left knee started to bother her. She denies injury, fall or trauma. The pain is located in the lateral aspect of the knee and in the posterolateral aspect of her lower leg. She has also started to experience left ankle pain. She has noticed swelling, redness and warmth in the lateral aspect of her lower leg/calf that comes and goes. It is quite tender to touch. She denies redness, warmth, swelling within theknee, fevers or chills. She was recently discharged from the hospital for management of the flu. The knee feels stable. The pain is worse at the end of the day after being on it at work. Occasionallyit wakes her at night. She denies pain with weight bearing or walking. It feels better with movement. The cold also bothers it. She ambulates without an assistive device. She is not currently taking anything for pain as she cannot take tylenol or NSAIDs due to liver and bleeding disorders. She has b een icing and elevating the knee otherwise. Today she rates her pain as 6/10 in severity. Comprehensive health database form (including [...] TONSILLECTOMY ??? WRIST SURGERY Right after fracture PHYSICAL EXAMINATION: General: Well-appearing female in no acute distress. Mood and affect appropriate. Vital Signs: A and O x3. Eyes: Sclerae clear. Cardiovascular: Capillary refill normal. Respiratory: Regular, unlabored, without audible wheezing. Station and Gait: Arises from seated position without knee pain, normal station with level pelvis in standing position. The patient does not have a limp with a short stance with ambulation about the examining room. Pelvis and Hips: No tenderness or masses, hip ROM is symmetric without reproduction of patient's presenting leg complaint(s) Right KNEE: Skin: Healthy appearing mobile incision ROM exam shows 0 to 110 motion. Manual muscle testing: Knee extension 5/5 and knee flexion 5/5 Stability testing shows no instability to AP or varus-valgus stress. No mal-alignment. No effusion. No patellofemoral crepitus. Left KNEE: Skin: Healthy appearing mobile incision. No erythema, warmth or swelling ROM exam shows 0 to 110 motion. Manual muscle testing: Knee extension 5/5 and knee flexion 5/5 Stability testing shows no instability to AP or varus-valgus stress. No mal-alignment. No effusion. No patellofemoral crepitus. Neurologic Exam: Intact light touch sensation below the knee. Vascular: 2+ PT 2+DP. Lower leg and ankles/feet: normal skin integrity and functional ROM. Firm area along left posterolateral calf with tenderness to palpation. Left calf tenderness to palpation. Left calf pain with active dorsiflexion. No erythema, warmth or swelling Neurologic: Intact sensation to light touch in both lower extremities. Tib-ant muscle strength 5/5 bilateral, gastroc-soleus muscle strength 5/5 bilateral Lymphadenopathy: none noted Vascular: DP/PT pulses +2 bilaterally REVIEW OF IMAGING: WB Bilat AP knees and lateral view today: personally reviewed these films which demonstrate total knee components on bilateral sides appear in good position without hardware complications. Left knee with screw in anterior tibia from prior surgery, likely TTT. ASSESSMENT: 58 year-old female with [facility] Bilateral knees appear good both clinically and radiographically today. Left knee pain likely secondary to de- conditioning. Patient also experiencing left posterolateral calf pain/tenderness and intermittent swelling, erythema and warmth. Cannot rule out DVT. Will obtain ultrasound for further evaluation Patient Active Problem List Diagnosis ??? Pancytopenia (HCC-CMS) ??? Mild persistent asthma without complication ??? Drug-seeking behavior ??? Hypersplenism syndrome ??? Splenic vein thrombosis ??? Hematuria, gross ??? Chronic back pain ??? Cirrhosis of liver (HCC-CMS) ??? Obesity, Class II, BMI 35-39.9 ??? Hypothyroidism ??? Influenza A PLAN: Today I had a lengthy conversation with Tara regarding her knee and leg pain. Reassurance was provided that her knee appear great both clinically and radiographically. We discussed that likely herpain is soft tissue and related to deconditioning. She was pleased to hear this. I did, however express concern of possible DVT given calf pain. We will obtain ultrasound today to rule out DVT. Otherwise, physical therapy referral was provided to work on general strengthening, ROM and conditioning.Given we do not have previous films, office notes or operative notes, she was encouraged to obtain this from her prior provider as she plans to establish care here. She verbalizes understanding. She will follow-up in 2-3 months or sooner as needed to assess progress. DISPOSITION: follow-up in [facility] in 2-3 months or sooner as needed Dr. Caldwell was the attending physician available in the clinic today if needed. A consultation was not required. Cc: Aj Issa Cc: Self documented in this encounter Plan of Treatment Upcoming Encounters Date Type Department Care Team (Late st Contact Info) Description 01/04/2025 13:00 EST Office Visit [facility] Ophthalmology [address] [phone] Gagandeep Rome MD [address] [place] [address] [address] [place] [phone] 02/11/2025 13:30 EDT Telemedicine [facility] Hematology & Oncology [address] [phone] Dana Padilla MD [address] [place] [address] [address] [place] [phone] Pending Results Name Type Priority Associated Diagnoses Date /Time VL LOWER VENOUS (DVT) UNILATERAL Imaging Routine Pain of left calf 01/11/2019 16:00 EST Scheduled Referrals Name Type Priority Associated Diagnoses Orde r Schedule AMB CONS/FOLLOW UP PHYSICAL THERAPY Outpatient Referral Routine Acute pain of left knee History of total knee arthroplasty, left Pain of left calf Ordered: 01/11/2019 documented as of this encounter Visit Diagnoses Diagnosis History of total knee arthroplasty, left- Primary Pain of left calf Pain in limb Acute pain of left knee documented in this encounter Care Teams Inspector Salvage Relationship Specialty Start Date End Date Naty Evans MD [address] [place] [address] MARIANA GOMEZ [phone] PCP - Alternate 09/30/17 04/11/19 Aj Issa MD [address] [place] [address] [address] [place] [address] PCP - General 07/29/18 03/13/19 documented as of this encounter
--- OUTSIDE RECORDS SUMMARY | 2024-11-22 17:25 | XMS_ITS | Encounter Summary ---
Author Organization [facility] Address [address] [place] [address] Care Team Providers Care Data Management Consultant Name Role Phone Naty Evans MD Unavailable Alma Farfan MD Primary Care Provider [phone] Reason for Visit * Reason Onset Date Comments Coordination Of Care 04/11/2019 Encounter Details Date Type Department Care Team (Late st Contact Info) Description 04/11/2019 Telephone [facility] Hematology & Oncology - [facility] [address] [place] [address] Tess Pal, KENN Coordination Of Care Social History Tobacco Use [...] encounter Miscellaneous Notes * Telephone Encounter - Tess Pal RN - 04/11/2019 0910 EDT PC to patient to let her know the iron infusions have been made for 04/17@2:00 pm, and 04/24 @11:00 amat Bibi Hayes. Patient was instructed to call [phone] if she needs to reschedule and she also needs to call 2 hours prior to each appt. Patient understood. documented in this encounter Plan of Treatment Upcoming Encounters Date Type Department Care Team (Late st Contact Info) Description 01/04/2025 13:00 EST Office Visit [facility] Ophthalmology - [address] [phone] Gagandeep Rome MD [address] [place] [address] 5 [place] [phone] 02/11/2025 13:30 EDT Telemedicine [facility] Hematology & Oncology [address] [phone] Dana Padilla MD [address] [place] [address] [address] [place] [phone] documented as of this encounter Visit Diagnoses Not on filedocumented in this encounter Care Teams Data Management Consultant Relationship Specialty Start Date End Date Naty Evans MD [address] [place] [address] [place] [phone] PCP - Alternate 09/30/17 04/11/19 Alma Farfan MD [address] [place] [address] [place] [phone] PCP - General 03/14/19 05/21/20 documented as of this encounter
--- OUTSIDE RECORDS SUMMARY | 2024-11-22 17:26 | XMS_ITS | Encounter Summary ---
Author Organization [facility] Address [address] [place] [address] Care Team Providers Care Slice Cutting Machine Operator Name Role Phone Naty Evans MD Unavailable Segundo Weems MD Primary Care Provider [phone] Encounter Details Date Type Department Care Team (Late st Contact Info) Description 05/19/2018 Results Only [facility] [phone] Segundo Weems MD [address] [place] [address] Social History Tobacco Use Types Packs/Day Years [...] Date of Assessment Author Yes 08/24/2017 23:43 EDInderjit Boyce RN * Do you have serious difficulty walking or climbing stairs? (5 years old or older) Answer Date of Assessment Author No 08/24/2017 23:43 EDT Inderjit Queen RN * Do you have difficulty dressing or bathing? (5 years old or older) Answer Date of Assessment Author No 08/24/2017 23:43 EDT Inderjit Queen RN * Because of a physical, mental, [...] Inderjit Queen RN documented in this encounter Plan of Treatment Upcoming Encounters Date Type Department Care Team (Late st Contact Info) Description 01/04/2025 13:00 EST Office Visit [facility] Ophthalmology - [address] [phone] Gagandeep Rome MD [address] [place] [address] [address] [place] [address] 02/11/2025 13:30 EDT Telemedicine [facility] Hematology & Oncology [address] [phone] Dana Padilla MD [address] [place] [address], [facility] [address] [place] [address] documented as of this encounter Procedures Procedure Name Priority Date/Time Associated Diagnosis Comments TESTS ADDED BY PHONE Routine 05/19/2018 9:54 EDT documented in this encounter Results * TESTS ADDED BY PHONE (05/19/2018 9:54 EDT) Tests to be added HCVRX1 05/22/2018 10:00 EDT [facility] Diagnosis Code R76.8 05/22/2018 10:00 EDT [facility] Who Called ZORAN 05/22/2018 10:00 EDT [facility] Location Code [facility] 05/22/2018 10:00 EDT [facility] Read Back/Confirmed ? YES 05/22/2018 10:00 EDT [facility] TOPOGRAPHY UNKNOWN / Unknown 05/19/2018 9:54 EDT 05/19/2018 19:49 EDT us Segundo Weems MD CHEMISTRY & BLOOD GAS ORDERAB LES Final Result [facility] [address] [place] [address] documented in this encounter Visit Diagnoses Not on filedocumented in this encounter Care Teams Slice Cutting Machine Operator Relationship Specialty Start Date End Date Naty Evans MD [address] [place] [address] MAR[place]NA GOMEZ [phone] PCP - Alternate 09/30/17 04/11/19 Segundo Weems MD [address] [place] [address] [place] [phone] PCP - General 02/08/18 07/28/18 documented as of this encounter
--- OUTSIDE RECORDS SUMMARY | 2024-11-22 17:26 | XMS_ITS | Encounter Summary ---
Author Organization [facility] Address [address] [place] [address] Care Team Providers Care Technical Services Librarian Name Role Phone Naty Evans MD Unavailable Aj Issa MD Primary Care Provider + Encounter Details Date Type Department Care Team (Late st Contact Info) Description 11/09/2018 Results Only [facility] [phone] Aj Issa MD [address] [place] [address] [address] [place] [address] Social History Tobacco Use Types Packs/Day Years [...] [facility] [address] [phone] Gagandeep Rome MD [address] [place] [address] 5 [place] [address] 02/11/2025 13:30 EDT Telemedicine [facility] Hematology & Oncology [address] [phone] Dana Padilla MD [address] [place] [address] 2 [place] [phone] documented as of this encounter Procedures Procedure Name Priority Date/Time Associated Diagnosis Comments AFP TUMOR MARKER Routine 11/09/2018 17:2 3 EST GGT Routine 11/09/2018 17:23 EST documented in this encounter Results * (ABNORMAL) GGT (11/09/2018 17:23 EST) GGT 47(H) <44 U/L 11/09/2018 20:30 EST [facility] BLOOD SPECIMEN / Unknown 11/09/2018 17:23 EST 11/09/2018 19:43 EST us Aj Issa MD CHEMISTRY & BLOOD GAS OR DERABLES Final Result Performing Organization Address [facility] Co de Phone Number [facility] [address] [place] [address] * AFP TUMOR MARKER (11/09/2018 17:23 EST) AFP Tumor Marker 2.1 <8.1 ng/mL 11/10/2018 10:41 EST [facility] Comment: AFP tumor marker cannot be interpreted in females. Serum AFP concentration should not be interpreted as absolute evidence for the presence or absence of malignant disease. Assayed utilizing Siemens chemiluminescent technology. Values obtained by using different assay methods cannot be used interchangeably. BLOOD SPECIMEN / Unknown 11/09/2018 17:23 EST 11/09/2018 19:43 EST us Aj Issa MD CHEMISTRY & BLOOD GAS OR DERABLES Final Result Performing Organization Address [facility] Co de Phone Number [facility] [address] [place] [address] documented in this encounter Visit Diagnoses Not on filedocumented in this encounter Care Teams Technical Services Librarian Relationship Specialty Start Date End Date Naty Evans MD [address] [place] [address] [place] [phone] PCP - Alternate 09/30/17 04/11/19 Aj Issa MD [address] [place] [phone] PCP - General 07/29/18 03/13/19 documented as of this encounter
--- OUTSIDE RECORDS SUMMARY | 2024-11-22 17:26 | XMS_ITS | Encounter Summary ---
Author Organization [facility] Address [address] [place] [address] Care Team Providers Care Battery Container Tester Name Role Phone Naty Evans MD Unavailable Aj Issa MD Primary Care Provider + Reason for Visit * Reason Onset Date Comments Other 10/10/2018 Encounter Details Date Type Department Care Team (Late st Contact Info) Description 10/10/2018 Telephone [facility] Gastroenterology - [facility] [address] [place], [place] [phone] Micheal Moseley MD PhD [address] [facility], [address] [place] [address] Other Social History Tobacco Use [...] Telephone Encounter - Kimberley Spring RN - 10/10/2018 1516 EST Patient was asked to contact her Primary Care office to arrange the ultrasound. She agrees to do this. * Telephone Encounter - Laura Argueta - 10/10/2018 1502 EST Patient said she needs ultrasound scheduled every 6 months, and she will be due in October. documented in this encounter Plan of Treatment Upcoming Encounters Date Type Department Care Team (Late st Contact Info) Description 01/04/2025 13:00 EST Office Visit [facility] Ophthalmology - [address] [phone] Gagandeep Rome MD [address] [place] [address], [address] [place] [address] 02/11/2025 13:30 EDT Telemedicine [facility] Hematology & Oncology - [facility] [address] [place], [place] [phone] Dana Padilla MD [address] [facility], [address] [place] [phone] documented as of this encounter Visit Diagnoses Not on filedocumented in this encounter Care Teams Battery Container Tester Relationship Specialty Start Date End Date Naty Evans MD [address] [place] [address] [place] [phone] PCP - Alternate 09/30/17 04/11/19 Aj Issa MD [address] [facility] [address] [place] [phone] PCP - General 07/29/18 03/13/19 documented as of this encounter
--- OUTSIDE RECORDS SUMMARY | 2024-11-22 17:26 | XMS_ITS | Encounter Summary ---
Author Organization [facility] Address [address] [place] [address] Care Team Providers Care Night Order Selector Name Role Phone Naty Evans MD Unavailable Segundo Weems MD Primary Care Provider [phone] Encounter Details Date Type Department Care Team (Late st Contact Info) Description 05/19/2018 Results Only [facility]- [facility] [phone] Segundo Weems MD [address] [place] [address] Social History Tobacco Use Types [...] Office Visit [facility] Ophthalmology [address] [phone] Gagandeep Rome MD [address] [place] [address] 5 [place] [phone] 02/11/2025 13:30 EDT Telemedicine [facility] Hematology & Oncology [address] [phone] Dana Padilla MD [address] [place] [address], [facility] [address] [place] [phone] documented as of this encounter Procedures Procedure Name Priority Date/Time Associated Diagnosis Comments HCV RNA QUANT WITH REFLEX TO GENOTYPE Routine 05/19/2018 9:54 EDT documented in this encounter Results * HCV RNA QUANT WITH REFLEX TO GENOTYPE (05/19/2018 9:54 EDT) HCV RNA Detect Quant Undetected Undetected IU/mL 05/23/2018 14:41 EDT [facility] Comment: Reference Range: ??Undetected The quantification range of this assay is 15 IU/mL to 100,000,000 IU/mL. Testing was performed by the [employer] TaqMan HCV v2.0 ([employer] BLOOD SPECIMEN / Unknown 05/19/2018 9:54 EDT 05/19/2018 19:49 EDT us Segundo Weems MD CHEMISTRY & BLOOD GAS ORDERAB LES Final Result [facility] [address] [place] [address] documented in this encounter Visit Diagnoses Not on filedocumented in this encounter Care Teams Night Order Selector Relationship Specialty Start Date End Date Naty Evans MD [address] [place] [address] [place] GOME[place] [phone] PCP - Alternate 09/30/17 04/11/19 Segundo Weems MD [address] [place] [address] [place] GOMEZ [phone] PCP - General 02/08/18 07/28/18 documented as of this encounter
--- OUTSIDE RECORDS SUMMARY | 2024-11-22 17:26 | XMS_ITS | Encounter Summary ---
Author Organization [facility] Address [address] [place] [address] Care Team Providers Care Gelatin Maker Utility Name Role Phone Naty Evans MD Unavailable Aj Issa MD Primary Care Provider + Encounter Details Date Type Department Care Team (Late st Contact Info) Description 11/09/2018 12:25 EST - 11/09/2018 23:00 EST Hospital Encounter [address] [phone] Aj Issa MD 7 [facility] [address] [place] [address] Discharge Disposition: Home or Self Care Social [...] documented in this encounter Discharge Diagnoses Diagnosis K74.60 Unspecified cirrhosis of liver-K74.60[ICD-10-CM] documented in this encounter Medications at Time of Discharge albuterol 90 mcg/actuation inhaler Inhale 2 Puffs as directed every 4 hours as needed. 1 ALPRAZolam (XANAX) 0.5 mg tablet Take 0.5 mg by mouth 3 times daily. 09/12/2017 9 amitriptyline (ELAVIL) 10 mg tablet Take 10 mg by mouth daily. 9 dicyclomine (BENTYL) 10 mg capsule Take 1 Cap by mouth 3 times daily. 20 Cap 10/21/2018 9 DOCUSATE SODIUM (COLACE ORAL) Take by mouth. 01 9 ERGOCALCIFEROL, VITAMIN D2, (VITAMIN D ORAL) Take by mouth. 1 ferrous gluconate (FERGON) 324 mg (38 mg iron) tablet Take 324 mg by mouth daily with breakfast. 1 fluticasone (FLOVENT) 110 mcg/actuation inhaler Inhale 110 mcg as directed 2 times daily. 0 gabapentin (NEURONTIN) 300 mg capsule Take 300 mg by mouth 3 times daily. 9 LACTULOSE ORAL Take by mouth. 9 LEVOTHYROXINE SODIUM (LEVOTHYROXINE ORAL) Take 25 mcg by mouth daily. Unknown dose 0 lidocaine 5 % (LIDODERM) 5 % patch Place 1 Patch onto the skin daily. 9 ondansetron (ZOFRAN-ODT) 4 mg disintegrating tablet Take 1 Tab by mouth every 8 hours as needed for Nausea. 30 Tab 08/26/2017 9 oxyCODONE (ROXICODONE) 5 mg immediate release tablet Take 1 Tab by mouth every 4 hours as needed for up to 4 doses for Pain. Daily Max: 30 mg 4 Tab 04/07/2018 9 pantoprazole (PROTONIX) 40 mg tablet Take 40 mg by mouth daily. 9 rifAXImin (XIFAXAN) 550 mg tablet Take 550 mg by mouth 2 times daily 9 documented as of this encounter Discharge Disposition Disposition Code Departure Means Destination Home or Self Care documented in this encounter Plan of Treatment Upcoming Encounters Date Type Department Care Team (Late st Contact Info) Description 01/04/2025 13:00 EST Office Visit [facility] Ophthalmology - [address] [phone] Gagandeep Rome MD [address] [place] [address], [facility] [address] [place] [phone] 02/11/2025 13:30 EDT Telemedicine [facility] Hematology & Oncology [address] [phone] Dana Padilla MD [address] [place] [address], [facility] [address] [place] [phone] documented as of this encounter Visit Diagnoses Not on filedocumented in this encounter Care Teams Gelatin Maker Utility Relationship Specialty Start Date End Date Naty Evans MD [address] [place] [address] [place] [phone] PCP - Alternate 09/30/17 04/11/19 Aj Issa MD [address] [phone] PCP - General 07/29/18 03/13/19 documented as of this encounter
--- OUTSIDE RECORDS SUMMARY | 2024-11-22 17:26 | XMS_ITS | Encounter Summary ---
Author Organization [facility] Address [address] [place] [address] Care Team Providers Care Materials Buyer Name Role Phone Naty Evans MD Unavailable Aj Issa MD Primary Care Provider + Reason for Visit * Reason Comments Abdominal Pain Patient c/o mid abdo ro pains wrapping around to to LUQ and hematuria starting last night. Describes as abdominal spasms. + nausea. Denies fevers and diarrhea. Encounter Details Date Type Department Care Team (Late st Contact Info) Description 10/21/2018 10:05 EST - 10/21/2018 15:44 EST Emergency [facility] Emergency Department - [id number] Josh [address] PA-C [address] [place] [phone] J Luis Gregory MD [address] [phone] Emergency, MD Rolando Generalized abdominal pain (Primary Dx) Discharge Disposition: [...] Sign Reading Time Taken Comments Blood Pressure 135/80 10/21/2018 1540 EST Pulse 77 10/21/2018 1540 EST Temperature 36.6 ??C (97.9 ??F) 10/21/2018 1540 EST Respiratory Rate - - Oxygen Saturation 97% 10/21/2018 1540 EST Inhaled Oxygen Concentration - - Weight 90.7 kg (200 lb) 10/21/2018 1010 EST Height - - Body Mass Index 33.28 07/29/2018 2138 EDT documented in this encounter Functional Status [...] documented in this encounter Discharge Diagnoses Diagnosis R10.84 Generalized abdominal pain-R10.84[ICD-10-CM] R11.0 Nausea-R11.0[ICD-10-CM] N18.9 Chronic kidney disease, unspecified-N18.9[ICD-10-CM] Z87.442 Personal history of urinary calculi-Z87.442[ICD-10-CM] J45.909 Unspecified asthma, uncomplicated-J45.909[ICD-10-CM] F17.200 Nicotine dependence, unspecified, uncomplicated-F17.200[ICD-10-CM] Z90.49 Acquired absence of other specified parts of digestive tract-Z90.49[ICD-10-CM] Z90.710 Acquired absence of both cervix and uterus-Z90.710[ICD-10-CM] Z88.5 Allergy status to narcotic agent status-Z88.5[ICD-10-CM] Z88.2 Allergy status to sulfonamides status-Z88.2[ICD-10-CM] documented in this encounter Discharge Instructions * Discharge Instructions* Josh St PA - 10/21/2018 15:37 EST Follow up with your primary care provider. You may try using Bentyl which will help with abdominal spasms * Attachments The following attachments cannot be sent through Care Everywhere. * ABDOMINAL PAIN (MALTESE) documented in this encounter Medications at Time [...] daily 9 documented as of this encounter Ordered Prescriptions Prescription Sig Dispense Quantity Refills Last Filled Start Date End Date dicyclomine (BENTYL) 10 mg capsule Take 1 Cap by mouth 3 times daily. 20 Cap 10/21/2018 01/03/2019 documented in this encounter Discharge Disposition Disposition Code Departure Means Destination Home or Self Care Car Home documented in this encounter ED Notes * Yousuf Ramires RN - 10/21/2018 1439 EST Patient sent to CT. * Josh St PA - 10/21/2018 1330 EST DOS: 10/21/2018 Chief Complaint Patient presents with ??? Abdominal Pain Patient c/o mid abdominal pains wrapping around to to LUQ and hematuria starting last night. Describes as abdominal spasms. + nausea. Denies fevers and diarrhea. HPI The patient is a 58 y.o. female who presents today with Abdominal Pain (Patient c/o mid abdominal pains wrapping around to to LUQ and hematuria starting last night. Describes as abdominal spasms. + nausea. Denies fevers and diarrhea. ) 58-year-old female arrives with severe abdominal pain. Patient describes as spasms in her abdomen that start in her lower abdomen and workup to the central sternal region. She describes them as severe dropping her to her knees. She has had a history of kidney stones states there are times that it feels similar but other times it feels completely different. She has had nausea without vomiting no fevers or chills patient did remember later that while at work yesterday she ended up having to shovel large pile of ice Review of Systems Review of Systems Constitutional: Negative. Negative for chills, fatigue and fever. HENT: Negative. Negative for congestion, sore throat and trouble swallowing. Eyes: Negative. Negative for visual disturbance. Respiratory: Negative. Negative for chest tightness and shortness of breath. Cardiovascular: Positive for chest pain. Negative for palpitations and leg swelling. Gastrointestinal: Positive for abdominal distention, abdominal pain and nausea. Negative for anal bleeding, blood in stool, constipation, diarrhea, rectal pain and vomiting. Endocrine: Negative. Genitourinary: Negative. Negative for dysuria and frequency. Musculoskeletal: Negative. Negative for arthralgias, back pain, gait problem, joint swelling and myalgias. Skin: Negative. Negative for rash. Allergic/Immunologic: Negative. Negative for immunocompromised state. Neurological: Negative. Negative for dizziness and headaches. Hematological: Negative. Negative for adenopathy. Does not bruise/bleed easily. Psychiatric/Behavioral: Negative. Negative for confusion. All other systems reviewed and are negative. [...] ??? Reglan [Metoclopramide Hcl] Rash Physical Exam Constitutional: She appears well-developed and well-nourished. HENT: Head: Normocephalic and atraumatic. Right Ear: External ear normal. Left Ear: External ear normal. Nose: Nose normal. Eyes: Pupils are equal, round, and reactive to light. Right eye exhibits no discharge. Left eye exhibits no discharge. Neck: Normal range of motion. Neck supple. No tracheal deviation present. Cardiovascular: Normal rate, regular rhythm and normal heart sounds. Pulmonary/Chest: Breath sounds normal. No respiratory distress. Abdominal: Soft. There is generalized tenderness and tenderness in the right upper quadrant, epigastric area, periumbilical area and left upper quadrant. Musculoskeletal: Normal range of motion. Neurological: She is alert. She has normal strength. No sensory deficit. Skin: No rash noted. Psychiatric: She has a normal mood and affect. Nursing note and vitals reviewed. RESULTS EKG orders: None Radiology orders: None Procedures ED COURSE A medical screening exam was performed. Patient later admitted that she was shoveling about 600 pounds of ice while working at her job at [employer] the day before this pain started. Patient has hadmultiple episodes in the past of similar type abdominal pain. Given her CT scan does not show any acute findings patient was also seen with Dr. Gregory. Patient was feeling better and will be discharged to home. She describes often episodes of crampy abdominal pain I did discuss with her that we will try using Bentyl to see if this helps the spasms and she could follow-up with her PCP and/or gastroenterology if symptoms continue Final diagnoses: None DISPOSITION: No disposition on file The patient's pain was managed to an adequate level weighing risk vs. benefit of further medications. Upon departure from the Emergency Department, the patient's pain was 3 on a zero to ten scale. Any further pain treatment will be at the discretion of the provider following up with the patient based on their clinical assessment. Condition at departure from the Emergency Department: Improved PCP: Aj Gregory was available for supervision. 10/21/2018 13:30 No flowsheet data found. * Yousuf Ramires RN - 10/21/2018 1317 EST Patient reports relief with of nausea and abdominal pain. * J Luis Gregory MD - 10/21/2018 1127 EST I, Tracee Kelsey, am scribing for J Luis Gregory MD while he/she is personally performing the service. Tracee Kelsey 10/21/2018 11:27 I performed a history and exam of this patient and discussed the case with the PA. I reviewed this individual's note and I concur with the documented findings and plan of care except as documented differently. ROS as per PA chart. This documentation is recorded by Tracee Kelsey acting as Scribe under the direction and presence of J Luis Gregory MD. J Luis Gregory MD: I personally performed the services recorded by the scribe in my presence. I confirm the scribe's documentation has been reviewed by me to accurately and completely record my work,treatment, procedures, and medical decision making. documented in this encounter Plan of Treatment Upcoming Encounters Date Type Department Care Team (Late st Contact Info) Description 01/04/2025 13:00 EST Office Visit [facility] Ophthalmology - [address] [phone] Gagandeep Rome MD [address] [place] [address] [address] [place] [phone] 02/11/2025 13:30 EDT Telemedicine [facility] Hematology & Oncology [address] [phone] Dana Padilla MD [address] [place] [address], [facility] [address] [place] [phone] documented as of this encounter Procedures Procedure Name Priority Date/Time Associated Diagnosis Comments CT RENAL COLIC WO CONTRAST STAT 10/21/2018 14:42 EST URINE CHEMICAL (DIP) & SEDIMENT (MICRO) WITHOUT REFLEX TO CULTURE STAT 10/21/2018 12:34 EST COMPLETE BLOOD COUNT AND DIFFERENTIAL STAT 10/21/2018 12:21 EST LIPASE STAT 10/21/2018 12:21 EST COMPREHENSIVE METABOLIC PANEL (CMP) STAT 10/21/2018 12:21 EST documented in this encounter Results * CT RENAL COLIC WO CONTRAST (10/21/2018 14:42 EST) Anatomical Region Laterality Modality Other 10/21/2018 14:4 2 EST 10/21/2018 15:41 EST Narrative 10/21/2018 15:[address] RENAL COLIC ??10/21/2018 2:42 PM Signs and Symptoms/Comments: ?? Severe left-sided back and central abdominal pain with gross hematuria Technique: Axial CT images obtained from abdomen immediately superior to level of kidneys through the pelvis without administration of contrast of any kind. Sagittal and coronal reformats generated. Comparison: Multiple prior CT examinations, most recent was obtained 08/24/2017 Findings: Kidneys and ureters: No contour deforming mass identified in the kidneys. There is no evidence of hydronephrosis or nephrolithiasis. Ureters of normal caliber. Stable gonadal vein phleboliths adjacent to the mid ureters bilaterally. Bladder: No significant abnormality. Uterus, adnexa: The uterus is surgically absent. No adnexal mass identified. Included lung bases: No significant abnormality. Unenhanced liver and spleen, as far as included: The liver has a nodular contour, similar to prior examination. There is splenomegaly. The portal venous and splenic veins are of large caliber, similar to prior. Gallbladder, pancreas adrenal glands: Patient is post cholecystectomy. The pancreas and adrenal glands are without significant abnormality. Bowel: There is no evidence of bowel obstruction. There are scattered noninflamed sigmoid diverticula. The appendix is surgically absent. Peritoneal cavity: There is no free fluid or free air. Numerous surgical cortez are present. Abdominal wall: No bowel containing hernia. Evidently radiodense mesh from prior hernia repair along right rectus muscle, unchanged. Lymphovascular: Atherosclerotic calcifications are present. Scattered upper abdominal varices noted. There is redemonstration of numerous prominent lymph nodes in the abdomen/pelvis, however none pathologically enlarged, not significantly changed. Musculoskeletal: Multilevel degenerative disc disease. No suspicious osseous abnormality. Pelvic bones intact. Impression: 1. ??No urinary tract calculi or obstruction.. 2. ??Cirrhosis with findings of portal hypertension, similar to prior examination with stable marked dilatation or splenic veins, containing nonocclusive thrombi multiple prior enhanced CTs. 3. ??Post cholecystectomy, hysterectomy, appendectomy, and abdominal wall hernia repair. 4. ??Atherosclerosis I have personally reviewed the images and the above interpretation and agree with the findings. Procedure Note Scottie Xavier MD - 10/21/2018 CT RENAL COLIC 10/21/2018 2:42 PM Signs and Symptoms/Comments: Severe left-sided back and central abdominal pain with gross hematuria Technique: Axial CT images obtained from abdomen immediately superior to level of kidneys through the pelvis without administration of contrast of any kind. Sagittal and coronal reformats generated. Comparison: Multiple prior CT examinations, most recent was obtained 08/24/2017 Findings: Kidneys and ureters: No contour deforming mass identified in the kidneys. There is no evidence of hydronephrosis or nephrolithiasis. Ureters of normal caliber. Stable gonadal vein phleboliths adjacent to the mid ureters bilaterally. Bladder: No significant abnormality. Uterus, adnexa: The uterus is surgically absent. No adnexal mass identified. Included lung bases: No significant abnormality. Unenhanced liver and spleen, as far as included: The liver has a nodular contour, similar to prior examination. There is splenomegaly. The portal venous and splenic veins are of large caliber, similar to prior. Gallbladder, pancreas adrenal glands: Patient is post cholecystectomy. The pancreas and adrenal glands are without significant abnormality. Bowel: There is no evidence of bowel obstruction. There are scattered noninflamed sigmoid diverticula. The appendix is surgically absent. Peritoneal cavity: There is no free fluid or free air. Numerous surgical cortez are present. Abdominal wall: No bowel containing hernia. Evidently radiodense mesh from prior hernia repair along right rectus muscle, unchanged. Lymphovascular: Atherosclerotic calcifications are present. Scattered upper abdominal varices noted. There is redemonstration of numerous prominent lymph nodes in the abdomen/pelvis, however none pathologically enlarged, not significantly changed. Musculoskeletal: Multilevel degenerative disc disease. No suspicious osseous abnormality. Pelvic bones intact. Impression: 1. No urinary tract calculi or obstruction.. 2. Cirrhosis with findings of portal hypertension, similar to prior examination with stable marked dilatation or splenic veins, containing nonocclusive thrombi multiple prior enhanced CTs. 3. Post cholecystectomy, hysterectomy, appendectomy, and abdominal wall hernia repair. 4. Atherosclerosis I have personally reviewed the images and the above interpretation and agree with the findings. us Josh St PA-C IMG CT ORDERABLES Final Resul t * (ABNORMAL) UA, CHEMICAL AND SEDIMENT ANALYSIS (DIPSTICK AND MICROSCOPIC) (10/21/2018 12:34 EST) Color, UA Red 10/21/2018 12:58 [facility] Clarity, UA Hazy 10/21/2018 12:58 [facility] Glucose, UA Neg Neg 10/21/2018 12:58 [facility] Bilirubin, UA Neg Neg 10/21/2018 12:58 [facility] Ketones, UA Neg Neg 10/21/2018 12:58 [facility] Refractometer SG,Urine 1.014 1.001 - 1.035 10/21/2018 12:58 [facility] Blood, UA 3+(A) Neg 10/21/2018 12:58 [facility] pH, UA 6.5 4.6 - 8.0 10/21/2018 12:58 [facility] Protein, UA 1+(A) Neg 10/21/2018 12:58 [facility] Urobilinogen, UA Normal Normal E.U./dl 10/21/2018 12:58 [facility] Nitrite, UA Neg Neg 10/21/2018 12:58 [facility] Leuk Esterase 1+(A) Neg 10/21/2018 12:58 [facility] UA Method Used 10/21/2018 12:31 [facility] Comment: Testing performed using [employer] [id number]. Urine RBC Count Automated >50(A) 0 to 2 /HPF 10/21/2018 12:58 [facility] Urine WBC Count Automated 4 to 10(A) 0 to 3 /HPF 10/21/2018 12:58 [facility] Urine Squamous Epithelial Cell Count, Automated Few(A) None seen /LPF 10/21/2018 12:58 [facility] Urine Hyaline Casts, Automated < or = 10 < or = 10 /LPF 10/21/2018 12:58 [facility] Urine Bacteria Count, Automated None seen None seen 10/21/2018 12:58 [facility] Additional Findings Few 10/21/2018 12:58 [facility] Comment:Transitional Epithel ial Cells UA Comment Sediment results 10/21/2018 12:58 [facility] Comment: are unreliable on urines unrefrig >2hrs or refrig >8hrs. Urine specimen (specimen) URINE / Unknown 10/21/2018 12:34 EST 10/21/2018 12:[address] PA-C URINALYSIS ORDERABLES Final R esult [facility] [address] [place] [address] * COMPREHENSIVE METABOLIC PANEL (CMP) (10/21/2018 12:21 EST) Potassium 4.0 3.5 - 5.0 mEq/L 10/21/2018 13:02 [facility] Sodium 139 136 - 145 mEq/L 10/21/2018 13:02 [facility] Chloride 106 96 - 110 mEq/L 10/21/2018 13:02 [facility] CO2 26 22 - 32 mEq/L 10/21/2018 13:02 [facility] Total Alkaline Phosphatase 88 38 - 126 U/L 10/21/2018 13:02 [facility] Bilirubin, Total 0.8 <1.4 mg/dl 10/21/20 18 13:02 [facility] AST 34 15 - 46 U/L 10/21/2018 13:02 [facility] ALT 28 <53 U/L 10/21/2018 13:02 [facility] Albumin 3.9 3.4 - 4.9 g/dl 10/21/2018 13:02 [facility] Total Protein 6.8 6.3 - 8.2 g/dl 10/21/2018 13:02 [facility] Creatinine 0.71 0.52 - 1.04 mg/dl 10/21/2018 13:02 [facility] GFR, Calculated 94 >60 ml/min/1.7 3m2 10/21/2018 13:02 [facility] Comment: eGFR calculated using CKD-EPI equation for non Americans. Multiply eGFR by 1.16 for Americans. BUN 12 10 - 26 mg/dl 10/21/2018 13:02 [facility] Calcium 8.7 8.5 - 10.5 mg/dl 10/21/2018 13:02 [facility] Calculated Calcium 8.8 8.5 - 10.5 mg/dl 10/21/2018 13:02 [facility] Glucose, Serum 93 70 - 100 mg/dl 10/21/2018 13:02 [facility] Fasting? Unknown 10/21/2018 12:42 [facility] Blood specimen (specimen) BLOOD SPECIMEN / Unknown 10/21/2018 12:21 EST 10/21/2018 12:[address] PA-C CHEMISTRY & BLOOD GAS ORDERAB LES Final Result Performing Organization Address City/[facility]/ZIP Co de Phone Number [facility] [address] [place] [address] * LIPASE (10/21/2018 12:21 EST) Lipase 61 <251 U/L 10/21/2018 13:02 [facility] Blood specimen (specimen) BLOOD SPECIMEN / Unknown 10/21/2018 12:21 EST 10/21/2018 12:[address] PA-C CHEMISTRY & BLOOD GAS ORDERAB LES Final Result [facility] [address] [place] [address] * (ABNORMAL) COMPLETE BLOOD COUNT AND DIFFERENTIAL (10/21/2018 12:21 [facility]) WBC 2.04(L) 4.0 - 12.4 K/cmm 10/21/2018 12:55 [facility] RBC 4.06 3.86 - 5.04 M/cmm 10/21/2018 12:55 [facility] Hemoglobin 11.1(L) 11.6 - 15.2 gm/dl 10/21/2018 12:55 [facility] HCT 34.2(L) 34.9 - 44.4 % 10/21/2018 12:55 [facility] MCV 84 81 - 98 fl 10/21/2018 12:55 [facility] MCH 27.3 26.7 - 33.3 pg 10/21/2018 12:55 [facility] MCHC 32.5 32.1 - 35.9 gm/dl 10/21/2018 12:55 [facility] RDW-CV 14.9(H) <14.7 % 10/21/2018 12:55 [facility] RDW-SD 45.7 <50.4 fl 10/21/2018 12:55 [facility] PLT 48(L) 141 - 377 K/cmm 10/21/2018 12:55 [facility] MPV 10.6 9.5 - 12.7 fl 10/21/2018 12:55 [facility] Neutrophils 76.5 % 10/21/2018 13:33 [facility] % Bands 0.9 % 10/21/2018 13:33 [facility] Lymphocytes 11.3 % 10/21/2018 13:33 [facility] Monocytes 6.9 % 10/21/2018 13:33 [facility] Eosinophils 1.7 % 10/21/2018 13:33 [facility] Basophils 0.9 % 10/21/2018 13:33 [facility] % Myelocytes 0.9 % 10/21/2018 13:33 [facility] % Atyp Lymphs 0.9 % 10/21/2018 13:33 [facility] ABS Neutrophils 1.56(L) 2.20 - 8.85 K/cmm 10/21/2018 13:33 [facility] ABS Bands 0.02 K/cmm 10/21/2018 13:33 [facility] ABS Lymphs 0.23(L) 1.09 - 3.30 K/cmm 10/21/2018 13:33 [facility] ABS Monocytes 0.14 0.1 - 0.8 K/cmm 10/21/2018 13:33 [facility] ABS Eosinophils 0.03 0.03 - 0.61 K/cmm 10/21/2018 13:33 [facility] ABS Basophils 0.02 0.01 - 0.11 K/cmm 10/21/2018 13:33 [facility] ABS Myelocytes 0.02 K/cmm 10/21/2018 13:33 [facility] ABS Atyp Lymphs 0.02 K/cmm 8 13:33 [facility] Ovalocytes 2+ 10/21/2018 13:33 [facility] Vacuolization Present 10/21/2018 13:33 [facility] Type of Diff: Manual 10/21/2018 13:33 [facility] Blood specimen (specimen) BLOOD SPECIMEN / Unknown 10/21/2018 12:21 EST 10/21/2018 12:[address] PA-C PACKAGES & DNA PROBE ORDERABL ES Final Result [facility] [address] [place] [address] documented in this encounter Visit Diagnoses Diagnosis Generalized abdominal pain- Primary Abdominal pain, generalized documented in this encounter Administered Medications Inactive Administered Medications - up to 3 most recent administrations Medication Order MAR Action Action Date Dose Rate Site aluminum & magnesium hydroxide-simethicone (MYLANTA-DS) 400-400-40 mg/5 mL suspension 15 mL 15 mL, oral, NOW X1, 1 dose, On 10/21/18 at 1200, STAT Given 10/21/2018 12:24 EST 15 mL lidocaine (XYLOCAINE) 2 % viscous solution 15 mL 15 mL, oral, NOW X1, 1 dose, On 10/21/18 at 1200, STAT Given 10/21/2018 12:24 EST 15 mL ondansetron (ZOFRAN-ODT) disintegrating tablet 4 mg 4 mg, oral, NOW X1, 1 dose, On 10/21/18 at 1230, STAT Given 10/21/2018 12:33 EST 4 mg ondansetron (ZOFRAN-ODT) disintegrating tablet 4 mg 4 mg, oral, NOW X1, 1 dose, On 10/21/18 at 1500, STAT Given 10/21/2018 14:53 EST 4 mg oxyCODONE (ROXICODONE) immediate release tablet 10 mg 10 mg, oral, NOW X1, 1 dose, On 10/21/18 at 1200, STAT Given 10/21/2018 12:24 EST 10 mg traMADol (ULTRAM) tablet 50 mg 50 mg, oral, NOW X1, 1 dose, On 10/21/18 at 1500, STAT Given 10/21/2018 14:53 EST 50 mg documented in this encounter Active and Recently Administered Medications Times are shown in EST. Scheduled Medication Order 10/19/2018 10/20/2018 10/21/2018 aluminum & magnesium hydroxide-simethicone (MYLANTA-DS) 400-400-40 mg/5 mL suspension 15 mL (COMPLETED)(Linked Group 1) 15 mL, oral, NOW X1, 1 dose, On 10/21/18 at 1200, STAT 1224 (Given - Provid er: Yousuf Ramires RN) lidocaine (XYLOCAINE) 2 % viscous solution 15 mL (COMPLETED)(Linked Group 1) 15 mL, oral, NOW X1, 1 dose, On 10/21/18 at 1200, STAT 1224 (Given - Provid er: Yousuf Ramires RN) ondansetron (ZOFRAN-ODT) disintegrating tablet 4 mg (COMPLETED) 4 mg, oral, NOW X1, 1 dose, On 10/21/18 at 1230, STAT 1233 (Given - Provid er: Yousuf Ramires RN) ondansetron (ZOFRAN-ODT) disintegrating tablet 4 mg (COMPLETED) 4 mg, oral, NOW X1, 1 dose, On 10/21/18 at 1500, STAT 1453 (Given - Provid er: Yousuf Ramires RN) oxyCODONE (ROXICODONE) immediate release tablet 10 mg (COMPLETED) 10 mg, oral, NOW X1, 1 dose, On 10/21/18 at 1200, STAT 1224 (Given - Provid er: Yousuf Ramires RN) traMADol (ULTRAM) tablet 50 mg (COMPLETED) 50 mg, oral, NOW X1, 1 dose, On 10/21/18 at 1500, STAT 1453 (Given - Provid er: Yousuf Ramires RN) Linked Groups Order Group 1: lidocaine (XYLOCAINE) 2 % viscous solution 15 mL (COMPLETED)Jump to med 15 mL, oral, NOW X1, 1 dose, On 10/21/18 at 1200, STAT And aluminum & magnesium hydroxide-simethicone (MYLANTA-DS) 400-400-40 mg/5 mL suspension 15 mL (COMPLETED)Jump to med 15 mL, oral, NOW X1, 1 dose, On 10/21/18 at 1200, STAT documented in this encounter Orders Nursing Count Last Ordered Date First Orde red Date INSERT PERIPHERAL IV 1 10/21/2018 documented in this encounter Care Teams Materials Buyer Relationship Specialty Start Date End Date Naty Evans MD [address] [place] [address] [place] [phone] PCP - Alternate 09/30/17 04/11/19 Aj Issa MD [address] [place] [phone] PCP - General 07/29/18 03/13/19 documented as of this encounter
--- OUTSIDE RECORDS SUMMARY | 2024-11-22 17:26 | XMS_ITS | Encounter Summary ---
Author Organization [facility] Address [address] [place] [address] Care Team Providers Care Alignment Mechanic Name Role Phone Naty Evans MD Unavailable Aj Issa MD Primary Care Provider + Encounter Details Date Type Department Care Team (Latest Contact Info) Description 10/21/2018 Travel Social History Tobacco Use Types Packs/Day [...] 08/24/2017 23:43 EDT Inderjit Queen, RN * Because of a physical, mental, [...] Info) Description 01/04/2025 13:00 EST Office Visit [facility] Ophthalmology - [address] [phone] Gagandeep Rome MD [address] [place] [address] [address] [place] [phone] 02/11/2025 13:30 EDT Telemedicine [facility] Hematology & Oncology [address] [phone] Dana Padilla MD [address] [place] [address], [facility] [address] [place] [phone] documented as of this encounter Visit Diagnoses Not on filedocumented in this encounter Care Teams Alignment Mechanic Relationship Specialty Start Date End Date Naty Evans MD [address] [place] [address] [place] [phone] PCP - Alternate 09/30/17 04/11/19 Aj Issa MD [address] [place] [phone] PCP - General 07/29/18 03/13/19 documented as of this encounter
--- OUTSIDE RECORDS SUMMARY | 2024-11-22 17:26 | XMS_ITS | Encounter Summary ---
Author Organization [facility] Address [address] [place] [address] Care Team Providers Care R Programmer Name Role Phone Naty Evans MD Unavailable Segundo Weems MD Primary Care Provider [phone] Reason for Visit * Reason Comments Loss of Consciousness pt was home alone felt a sudden headache, then sharp chest pain , pain dulled then pt fell +loc, chest pain returned after fall Encounter Details Date Type Department Care Team (Late st Contact Info) Description 07/11/2018 12:46 EDT - 07/11/2018 17:37 EDT Emergency [facility] Emergency Department - Main [address] [address] Laurent Chaudhry MD [address] [facility], [address] [place] [address] Emergency, MD Rolando Atypical chest pain (Primary Dx) Discharge Disposition: Home or [...] Sign Reading Time Taken Comments Blood Pressure 142/90 07/11/2018 1718 EDT Pulse - - Temperature 36.1 ??C (97 ??F) 07/11/2018 1700 EDT Respiratory Rate 16 07/11/2018 1700 EDT Oxygen Saturation 98% 07/11/2018 1718 EDT Inhaled Oxygen Concentration - - Weight 104.3 kg (230 lb) 07/11/2018 1254 EDT Height 160 cm (5' 3) 07/11/2018 1254 EDT Body Mass Index 40.74 07/11/2018 1254 EDT documented in this encounter Functional Status [...] Discharge Diagnoses Diagnosis R07.89 Other chest pain-R07.89[ICD-10-CM] R11.2 Nausea with vomiting, unspecified-R11.2[ICD-10-CM] R06.02 Shortness of breath-R06.02[ICD-10-CM] R20.2 Paresthesia of skin-R20.2[ICD-10-CM] R51 Headache-R51[ICD-10-CM] M79.89 Other specified soft tissue disorders-M79.89[ICD-10-CM] K21.9 Gastro-esophageal reflux disease without esophagitis-K21.9[ICD-10-CM] N18.9 Chronic kidney disease, unspecified-N18.9[ICD-10-CM] D64.9 Anemia, unspecified-D64.9[ICD-10-CM] J45.909 Unspecified asthma, uncomplicated-J45.909[ICD-10-CM] Z79.899 Other intermodal dispatcher (current) drug therapy-Z79.899[ICD-10-CM] Z88.5 Allergy status to narcotic agent status-Z88.5[ICD-10-CM] Z88.6 Allergy status to analgesic agent status-Z88.6[ICD-10-CM] Z88.8 Allergy status to other drugs, medicaments and biological substances status-Z88.8[ICD-10-CM] documented in this encounter Discharge Instructions * Attachments The following attachments cannot be sent through Care Everywhere. * CHEST PAIN (WOLOF) documented in this encounter Medications at Time of Discharge albuterol 90 mcg/actuation inhaler Inhale 2 Puffs as directed every 4 hours as needed. 1 ALPRAZolam (XANAX) 0.5 mg tablet Take 0.5 mg by mouth 3 times daily. 09/12/2017 9 amitriptyline (ELAVIL) 10 mg tablet Take 10 mg by mouth daily. 9 DOCUSATE SODIUM (COLACE ORAL) Take by [...] in this encounter ED Notes * Pam Jones RN - 07/11/2018 1736 EDT Pt up and dressed herself walked to parking [employer] by this nurse. Pt remains pain free after walking to parkin [employer] * Pam Jones RN - 07/11/2018 1735 EDT Pt insisting on leaving by 530 because my son is going to be here and he said I had to be ready. MD aware , discharge orders received. All discharge instructions given to pt and to return if for any reason she felt she needed to. * Pam Jones RN - 07/11/2018 1734 EDT Iv removed cannula intact dressing applied. * Wale Cardoza - 07/11/2018 1709 EDT Blood drawn via saline lock per protocol, green tube(s) sent to lab per order. * Julia Jacobs RN - 07/11/2018 1632 EDT MD at bedside, Pt denies CP, SOB and endorses slight lightheadedness. * Wale Cardoza - 07/11/2018 1357 EDT Blood drawn via saline lock per protocol, rainbow tube(s) sent to lab per order. * Laurent Chaudhry MD - 07/11/2018 1350 EDT DOS: 07/11/2018 Chief Complaint Patient presents with ??? Loss of Consciousness pt was home alone felt a sudden headache, then sharp chest pain , pain dulled then pt fell +loc, chest pain returned after fall HPI I, Brian Butt, am scribing for Laurent Chaudhry MD while he is personally performing the service. Brian Butt 07/11/2018 13:51 Tara Boothe is a 57 y.o. female with a history of asthma, splenomegaly, splenic vein thrombosis, and hepatic cirrhosis who presents to the ED via EMS with sudden onset of headache at 1100 this morning. Patient reports that shortly after she developed sharp chest pain associated with diaphoresis, tingling in her left arm, and nausea with one episode of vomiting. She states her headache is now improving but still there. She endorses some shortness of breath and wheezing but states these are chronic and at baseline. She also endorses swelling in her legs which is not new. She denies any abdominal pain. No recent changes in medications. Patient has a history of cholecystectomy, appendectomy, hernia repair, gastric fundoplication, and hysterectomy. Social history: Smokes cigarettes (0.5 ppd, 10 pack-years). No alcohol use. The history is provided by the patient, medical records and the EMS personnel. Headache Quality: Sharp Onset quality: Sudden Duration: 2 hours Timing: Constant Progression: Improving Associated symptoms: nausea and vomiting Associated symptoms: no abdominal pain, no congestion, no dizziness, no fever and no sore throat Review of Systems Review of Systems Constitutional: Positive for diaphoresis. Negative for chills and fever. HENT: Negative. Negative for congestion, sore throat and trouble swallowing. Eyes: Negative. Negative for visual disturbance. Respiratory: Positive for shortness of breath. Negative for chest tightness. Cardiovascular: Positive for chest pain and leg swelling. Negative for palpitations. Gastrointestinal: Positive for nausea and vomiting. Negative for abdominal distention and abdominalpain. Endocrine: Negative. Genitourinary: Negative. Negative for dysuria and frequency. Musculoskeletal: Negative. Negative for arthralgias. Skin: Negative. Negative for rash. Allergic/Immunologic: Negative. Negative for immunocompromised state. Neurological: Positive for headaches. Negative for dizziness. Tingling in upper extremity Hematological: Negative. Negative for adenopathy. Does not bruise/bleed easily. Psychiatric/Behavioral: Negative. Negative for confusion. All other systems reviewed and are negative. The patient???s past medical, family, and social [...] Rash Vital Signs Vitals Reassessment?: Yes Temp: 36.1 ??C (97 ??F) Temp src: Oral Heart Rate: 81 BPM Resp: 16 SpO2: 98 % BP: (!) 142/90 BP MAP: 102 mm Hg O2 Device: None (Room air) Physical Exam Constitutional: She is oriented to person, place, and time. She appears well- developed and well-nourished. No distress. HENT: Head: Normocephalic and atraumatic. Eyes: Conjunctivae are normal. Pupils are equal, round, and reactive to light. Neck: Normal range of motion. Cardiovascular: Normal rate and regular rhythm. Pulmonary/Chest: Effort normal and breath sounds normal. No respiratory distress. Abdominal: She exhibits no distension. Musculoskeletal: Normal range of motion. She exhibits no edema. Neurological: She is alert and oriented to person, place, and time. She exhibits normal muscle tone. Skin: Skin is warm and dry. No rash noted. Psychiatric: She has a normal mood and affect. Nursing note and vitals reviewed. RESULTS EKG orders: EKG 12-LEAD The patient had an EKG which was independently reviewed and interpreted by me. EKG showed normal sinus rhythm with Q waves in inferior leads. Radiology orders: CHEST PA AND LATERAL CT HEAD WO CONTRAST Patient had a chest x-ray, which was significant for bibasilar atelectasis without additional significant abnormality. Patient had x-rays that were obtained, reviewed, and interpreted by myself in conjunction with a radiologist. Please see radiology report for further details. Patient had a CT Head without contrast, which was significant for no intracranial hemorrhage or other acute abnormality. Patient had CT that was obtained, reviewed, and interpreted by myself and discussed with a radiologist. Please see radiology report for further details. ED Lab Results Labs Reviewed PROFILE ED CARDIAC PACK - Abnormal Result Value Status Sodium 141 Final Potassium 3.7 Final Chloride 107 Final CO2 24 Final BUN 10 Final Creatinine 0.77 Final GFR, Calculated 86 Final Magnesium 1.9 Final WBC 1.34 (*) Final RBC 3.82 (*) Final Hemoglobin 10.6 (*) Final HCT 32.2 (*) Final MCV 84 Final MCH 27.7 Final MCHC 32.9 Final RDW-CV 15.0 (*) Final RDW-SD 45.4 Final PLT 51 (*) Final MPV 9.7 Final Neutrophils 72.0 Final Bands 2.0 Final Lymphocytes 18.0 Final Monocytes 8.0 Final ABS Neutrophils 0.96 (*) Final ABS Bands 0.03 Final ABS Lymphs 0.24 (*) Final ABS Monocytes 0.11 Final Schistocytes Final Value: Increased schistocytes are seen but less than 1% (1+) of the RBCs. Ovalocytes 2+ Final Type of Diff: Manual Final Troponin I <0.034 Final Glucose, Screening 113 (*) Final Hold Blue Top Final Value: Sample for coagulation will be discarded after 4 hours AMMONIA - Abnormal Ammonia 37 (*) Final COMPLETE BLOOD COUNT AND DIFFERENTIAL - Abnormal WBC 1.29 (*) Final RBC 3.96 Final Hemoglobin 11.1 (*) Final HCT 34.4 (*) Final MCV 87 Final MCH 28.0 Final MCHC 32.3 Final RDW-CV 15.2 (*) Final RDW-SD 48.1 Final PLT 48 (*) Final MPV 10.1 Final Neutrophils 68.0 Final Bands 4.0 Final Lymphocytes 19.0 Final Atyp Lymphs 1.0 Final Monocytes 5.0 Final Eosinophils 3.0 Final ABS Neutrophils 0.88 (*) Final ABS Bands 0.05 Final ABS Lymphs 0.25 (*) Final ABS Atyp Lymphs 0.01 Final ABS Monocytes 0.06 (*) Final ABS Eosinophils 0.04 Final Schistocytes Final Value: Increased schistocytes are seen but less than 1% (1+) of the RBCs. Ovalocytes 2+ Final Type of Diff: Manual Final COMPLETE BLOOD COUNT AND DIFFERENTIAL COMPREHENSIVE METABOLIC PANEL (CMP) TROPONIN I TROPONIN I Relevant Data Procedures ED COURSE A medical screening exam was performed. This is a 57 year old female with a history of asthma, splenomegaly, splenic vein thrombosis, and hepatic cirrhosis who presents with headache and chest pain since this morning. Physical exam normal. EKG showed normal sinus rhythm with Q waves in inferior leads. Patient was given Zofran 4 mg IV and Motrin 600 mg PO. Patient was hydrated with 1 L bolus NS. Patient had labs that were reviewed independently by myself, which showed leukopenia and thrombopenia (at baseline). Troponin negative. Chest x-ray showed bibasilar atelectasis. Patient continued to feel nauseous so she was given another 4 mg Zofran IV. Head CT was normal. Patient was discharged and advised to follow up with PCP. Prior to discharge my usual and customary return precautions were reviewed with the patient and/or family. This included follow-up instructions and reasons to return to the Emergency Department if condition worsens, does not improve as expected, or other new concerns arise. ASSESSMENT AND PLAN Final diagnoses: Atypical chest pain DISPOSITION: Discharged The patient's pain was managed [...] Condition at departure from the Emergency Department: good PCP: Segundo Weems MDM Number of Diagnoses or Management Options Atypical chest pain: Diagnosis management comments: 57 yr old with brief episode of chest pain which resolved. No CP presently. BRIGHT has improved. No lab abnormality or exam. 2 x neg trops. Aurelia DC as near baseline. Pt continuously asking for pain meds and refusing all non-narcotics. 07/11/2018 17:31 No flowsheet data found. This documentation is recorded by Biran Butt acting as Scribe under the direction and presence of Laurent Chaudhry MD. Laurent Chaudhry MD: I personally performed the services recorded by the scribe in my presence. I confirm the scribe's documentation has been reviewed by me to accurately and completely record my work, treatment, procedures, and medical decision making. * Julia Jacobs RN - 07/11/2018 2655 EDT Assumed care of pt at this time, vitals obtained and explained ED process. documented in this encounter Plan of Treatment Upcoming Encounters Date Type Department Care Team (Late st Contact Info) Description 01/04/2025 13:00 EST Office Visit [facility] Ophthalmology - [address] [phone] Gagandeep Rome MD [address] [place] [address], [facility] [address] [place] [address] 02/11/2025 13:30 EDT Telemedicine [facility] Hematology & Oncology [address] [address] Dana Padilla MD [address] [place] [address], [address] [place] [id number] documented as of this encounter Procedures Procedure Name Priority Date/Time Associated Diagnosis Comments TROPONIN I STAT 07/11/2018 17:[address] HEAD WO CONTRAST STAT 07/11/2018 1 5:01 EDT CHEST PA AND LATERAL STAT 07/11/2018 14:59 EDT ECG REPORT - SCANNED 07/11/2018 14:26 EDT PROFILE ED CARDIAC PACK STAT 07/11/2018 13:42 EDT COMPLETE BLOOD COUNT AND DIFFERENTIAL Routine 07/11/2018 13:20 EDT AMMONIA Routine 07/11/2018 13:20 EDT EKG 12-LEAD STAT 07/11/2018 12:56 EDT documented in this encounter Results * TROPONIN I (07/11/2018 17:01 EDT) Troponin I (ng/mL) <0.034 <0.034 ng/ml 07/11/2018 17:43 EDT [facility] Comment: The results of this assay can be falsely lowered due to the consumption of Biotin. Blood specimen (specimen) BLOOD SPECIMEN / Unknown 07/11/2018 17:01 EDT 07/11/2018 17:10 EDT us Laurent Chaudhry MD CHEMISTRY & BLOOD GAS ORDER YANN Final Result [facility] [address] [place] [address] * CT HEAD WO CONTRAST (07/11/2018 15:01 EDT) Anatomical Region Laterality Modality Other 07/11/2018 15:0 1 EDT 07/11/2018 15:06 EDT Narrative 07/11/2018 15:[address] HEAD WO CONTRAST ??07/11/2018 3:01 PM CLINICAL HISTORY: BRIGHT COMPARISON: June 20, 2017 TECHNIQUE: Axial CT images of the head were acquired without contrast. Coronal and sagittal reformations were created. FINDINGS: The ventricles are normal. There is some prominence of the extra-axial spaces over the convexities which is unchanged from prior. There is no midline shift or other evidence of mass effect. ?? No mass or hemorrhage is seen. No infarction is identified. The orbits are normal. No fractures are identified and the soft tissues are normal. Paranasal sinuses and mastoid air cells are well aerated. IMPRESSION: No intracranial hemorrhage or other acute abnormality. No significant change from the prior study. Procedure Note Josh Trevizo MD - 07/11/2018 CT HEAD WO CONTRAST 07/11/2018 3:01 PM CLINICAL HISTORY: BRIGHT COMPARISON: June 20, 2017 TECHNIQUE: Axial CT images of the head were acquired without contrast. Coronal and sagittal reformations were created. FINDINGS: The ventricles are normal. There is some prominence of the extra-axial spaces over the convexities which is unchanged from prior. There is no midline shift or other evidence of mass effect. No mass or hemorrhage is seen. No infarction is identified. The orbits are normal. No fractures are identified and the soft tissues are normal. Paranasal sinuses and mastoid air cells are well aerated. IMPRESSION: No intracranial hemorrhage or other acute abnormality. No significant change from the prior study. us Laurent Chaudhry MD IMG CT ORDERABLES Final Res ult * CHEST PA AND LATERAL (07/11/2018 14:59 EDT) Anatomical Region Laterality Modality Other 07/11/2018 14:5 9 EDT 07/11/2018 15:14 EDT Narrative 07/11/2018 15:14 EDT CHEST 2 VIEWS ??07/11/2018 2:59 PM Clinical History/Comments: chest pain Comparison: February 08, 2018 and May 04, 2017. Technique: Frontal and lateral views of the chest were performed. Findings: Soft tissues: ??No significant abnormality. Bones: Unremarkable for age. Cardiac and mediastinal contours: Within normal limits. Lungs: Bibasilar linear opacities likely reflect atelectasis or scarring. The lungs are otherwise clear. Pleura/diaphragms: No pleural effusion or pneumothorax identified Impression: Bibasilar atelectasis without additional significant normality. I have personally reviewed the images and the above interpretation and agree with the findings. Procedure Note Colt Burciaga MD - 07/11/2018 CHEST 2 VIEWS 07/11/2018 2:59 PM Clinical History/Comments: chest pain Comparison: February 08, 2018 and May 04, 2017. Technique: Frontal and lateral views of the chest were performed. Findings: Soft tissues: No significant abnormality. Bones: Unremarkable for age. Cardiac and mediastinal contours: Within normal limits. Lungs: Bibasilar linear opacities likely reflect atelectasis or scarring. The lungs are otherwise clear. Pleura/diaphragms: No pleural effusion or pneumothorax identified Impression: Bibasilar atelectasis without additional significant normality. I have personally reviewed the images and the above interpretation and agree with the findings. us Laurent Chaudhry MD IMG DIAGNOSTIC IMAGING ORDDoug CARDENAS Final Result * ECG REPORT - SCANNED (07/11/2018 14:26 EDT) 07/11/2018 14:2 6 EDT us Scan 2 Coal [employer]ader PROCEDURE/MINOR SURGICAL OR DERABLES Final Result * (ABNORMAL) PROFILE ED CARDIAC PACK (07/11/2018 13:42 EDT) Sodium 141 136 - 145 mEq/L 07/11/2018 14:31 [facility] Potassium 3.7 3.5 - 5.0 mEq/L 07/11/2018 14:31 [facility] Chloride 107 96 - 110 mEq/L 07/11/2018 14:31 [facility] CO2 24 22 - 32 mEq/L 07/11/2018 14:31 [facility] BUN 10 10 - 26 mg/dl 07/11/2018 14:31 [facility] Creatinine 0.77 0.52 - 1.04 mg/dl 07/11/2018 14:31 [facility] GFR, Calculated 86 >60 ml/min/1 .73m2 07/11/2018 14:31 [facility] Comment: eGFR calculated using CKD-EPI equation for non Americans. Multiply eGFR by 1.16 for Americans. Magnesium 1.9 1.7 - 2.8 mg/dl 07/11/2018 14:31 [facility] WBC 1.34(L) 4.0 - 12.4 K/cmm 07/11/2018 14:27 [facility] RBC 3.82(L) 3.86 - 5.04 M/cmm 07/11/2018 14:27 [facility] Hemoglobin 10.6(L) 11.6 - 15.2 gm/dl 07/11/2018 14:27 [facility] HCT 32.2(L) 34.9 - 44.4 % 07/11/2018 14:27 [facility] MCV 84 81 - 98 fl 07/11/2018 14:27 [facility] MCH 27.7 26.7 - 33.3 pg 07/11/2018 14:27 [facility] MCHC 32.9 32.1 - 35.9 gm/dl 07/11/2018 14:27 [facility] RDW-CV 15.0(H) <14.7 % 07/11/2018 14:27 [facility] RDW-SD 45.4 <50.4 fl 07/11/2018 14:27 [facility] PLT 51(L) 141 - 377 K/cmm 07/11/2018 14:27 [facility] MPV 9.7 9.5 - 12.7 fl 07/11/2018 14:27 [facility] Neutrophils 72.0 % 07/11/2018 14:46 [facility] % Bands 2.0 % 07/11/2018 14:46 [facility] Lymphocytes 18.0 % 07/11/2018 14:46 [facility] Monocytes 8.0 % 07/11/2018 14:46 [facility] ABS Neutrophils 0.96(L) 2.20 - 8.85 K/cmm 07/11/2018 14:46 [facility] ABS Bands 0.03 K/cmm 07/11/2018 14:46 [facility] ABS Lymphs 0.24(L) 1.09 - 3.30 K/cmm 07/11/2018 14:46 [facility] ABS Monocytes 0.11 0.1 - 0.8 K/cmm 07/11/2018 14:46 [facility] Schistocytes Increased schistocytes are seen but less than 1% (1+) of the RBCs. 07/11/2018 14:46 [facility] Ovalocytes 2+ 07/11/2018 14:46 [facility] Type of Diff: Manual 07/11/2018 14:46 [facility] Troponin I (ng/mL) <0.034 <0.034 ng/ml 07/11/2018 14:31 [facility] Comment: The results of this assay can be falsely lowered due to the consumption of Biotin. Glucose, Screening 113(H) 70 - 100 mg/dl 07/11/2018 14:31 [facility] Hold Blue Top Sample for coagulation will be discarded after 4 hours 07/11/2018 14:28 [facility] Blood specimen (specimen) BLOOD SPECIMEN / Unknown 07/11/2018 13:42 EDT 07/11/2018 13:57 EDT us Laurent Chaudhry MD PACKAGES & DNA PROBE ORDERA BLES Final Result [facility] [address] [place] [address] * (ABNORMAL) COMPLETE BLOOD COUNT AND DIFFERENTIAL (07/11/2018 13:20 EDT) WBC 1.29(L) 4.0 - 12.4 K/cmm 07/11/2018 13:51 [facility] RBC 3.96 3.86 - 5.04 M/cmm 07/11/2018 13:51 [facility] Hemoglobin 11.1(L) 11.6 - 15.2 gm/dl 07/11/2018 13:51 [facility] HCT 34.4(L) 34.9 - 44.4 % 07/11/2018 13:51 [facility] MCV 87 81 - 98 fl 07/11/2018 13:51 [facility] MCH 28.0 26.7 - 33.3 pg 07/11/2018 13:51 [facility] MCHC 32.3 32.1 - 35.9 gm/dl 07/11/2018 13:51 [facility] RDW-CV 15.2(H) <14.7 % 07/11/2018 13:51 [facility] RDW-SD 48.1 <50.4 fl 07/11/2018 13:51 [facility] PLT 48(L) 141 - 377 K/cmm 07/11/2018 13:51 [facility] MPV 10.1 9.5 - 12.7 fl 07/11/2018 13:51 [facility] Neutrophils 68.0 % 07/11/2018 14:43 [facility] % Bands 4.0 % 07/11/2018 14:43 [facility] Lymphocytes 19.0 % 07/11/2018 14:43 [facility] % Atyp Lymphs 1.0 % 07/11/2018 14:43 [facility] Monocytes 5.0 % 07/11/2018 14:43 [facility] Eosinophils 3.0 % 07/11/2018 14:43 [facility] ABS Neutrophils 0.88(L) 2.20 - 8.85 K/cmm 07/11/2018 14:43 [facility] ABS Bands 0.05 K/cmm 07/11/2018 14:43 [facility] ABS Lymphs 0.25(L) 1.09 - 3.30 K/cmm 07/11/2018 14:43 [facility] ABS Atyp Lymphs 0.01 K/cmm 8 14:43 [facility] ABS Monocytes 0.06(L) 0.1 - 0.8 K/cmm 07/11/2018 14:43 EDT [facility] ABS Eosinophils 0.04 0.03 - 0.61 K/cmm 07/11/2018 14:43 EDT [facility] Schistocytes Increased schistocytes are seen but less than 1% (1+) of the RBCs. 07/11/2018 14:43 EDT [facility] Ovalocytes 2+ 07/11/2018 14:43 EDT [facility] Type of Diff: Manual 07/11/2018 14:43 EDT [facility] BLOOD SPECIMEN / Unknown 07/11/2018 13:20 EDT 07/11/2018 13:40 EDT Laurent Chaudhry MD PACKAGES & DNA PROBE ORDERA BLES Final Result Performing Organization Address [facility] de Phone Number [facility] [address] [place] [address] * (ABNORMAL) AMMONIA (07/11/2018 13:20 EDT) Ammonia 37(H) <34 umol/L 07/11/2018 14:04 EDT [facility] BLOOD SPECIMEN / Unknown 07/11/2018 13:20 EDT 07/11/2018 13:40 EDT Laurent Chaudhry MD CHEMISTRY & BLOOD GAS ORDER YANN Final Result Performing Organization Address [facility] de Phone Number [facility] [address] [place] [address] * EKG 12-LEAD (07/11/2018 12:56 EDT) 07/11/2018 12:5 6 EDT Narrative [facility] - 07/11/2018 14:20 EDT ?[facility] Emergency ? Test Date: ?2018-07-11 Pat Name: ? PHYLISS BOOTHE ?Department: ?? ED ? Room: ? AC09 Gender: ? Female ? Powder Room Attendant: ?? KIT : ?1960 ? Requested By: VANESSA HUI Order Number: [id number] ? Reading MD: ?? FOREIGN ADES MD ? Measurements Intervals ?Phillips ? Rate: ? 96 ? P: ?10 MA: ? 117 ?QRS: ?59 QRSD: ? 102 ?T: ?18 QT: ? 363 ? QTc: ?461 ? Interpretive Statements SINUS RHYTHM WITH SHORT MA INTERVAL NONSPECIFIC T-WAVE ABNORMALITY Compared to ECG 04/07/2018 14:39:25 Short MA interval now present T-wave abnormality still present I reviewed the tracing and have either agreed or edited the findings in this report. Electronically Signed On 07-11-2018 14:20:40 EDT by FOREIGN HINKLE MD. Procedure Note Foreign Hinkle MD - 07/11/2018 [facility] Emergency Test Date: 2018-07-11 Pat Name: TARA BOOTHE Department: ED Room: [facility] Gender: Female Powder Room Attendant: KIT : 1960 Requested By: VANESSA HUI Order Number: [id number] Reading MD: FOREIGN HINKLE MD Measurements Intervals Phillips Rate: 96 P: 10 MA: 117 QRS: 59 QRSD: 102 T: 18 QT: 363 QTc: 461 Interpretive Statements SINUS RHYTHM WITH SHORT MA INTERVAL NONSPECIFIC T-WAVE ABNORMALITY Compared to ECG 04/07/2018 14:39:25 Short MA interval now present T-wave abnormality still present I reviewed the tracing and have either agreed or edited the findings inthis report. Electronically Signed On 07-11-2018 14:20:40 EDT by FOREIGN BLUM. Coty Bundy MD CARDIAC ECG ORDERABLES Final Result [facility] EKG documented in this encounter Visit Diagnoses Diagnosis Atypical chest pain- Primary Other chest pain documented in this encounter Administered Medications Inactive Administered Medications - up to 3 most recent administrations Medication Order MAR Action Action Date Dose Rate Site ondansetron (PF) (ZOFRAN) injection 4 mg 4 mg, intravenous, NOW X1, 1 dose, On 07/11/18 at 1430, STAT Given 07/11/2018 14:25 EDT 4 mg ondansetron (PF) (ZOFRAN) injection 4 mg 4 mg, intravenous, NOW X1, 1 dose, On e 07/11/18 at 1515, STAT Given 07/11/2018 15:19 EDT 4 mg sodium chloride 0.9 % BOLUS 1,000 mL 1,000 mL, intravenous, NOW X1, 1 dose, On Tue07/11/18 at 1515, STAT New Bag 07/11/2018 15:20 EDT 1,000 mL documented in this encounter Active and Recently Administered Medications Times are shown in EDT. Scheduled Medication Order 07/09/2018 07/10/2018 07/11/2018 ibuprofen (MOTRIN) tablet 600 mg 600 mg, oral, NOW X1, 1 dose, On Tue07/11/18 at 1430, STAT 1426 (Not Given - Pr ovider: Julia Jacobs RN - Reason: Other - Comment: Per pt and her MD not to take motrin b/c blood too thin MD aware.) ondansetron (PF) (ZOFRAN) injection 4 mg (COMPLETED) 4 mg, intravenous, NOW X1, 1 dose, On Tue07/11/18 at 1430, STAT 1425 (Given - Provid er: Julia Jacobs RN) ondansetron (PF) (ZOFRAN) injection 4 mg (COMPLETED) 4 mg, intravenous, NOW X1, 1 dose, On Tue07/11/18 at 1515, STAT 1519 (Given - Provid er: Julia Jacobs RN) sodium chloride 0.9 % BOLUS 1,000 mL (COMPLETED) 1,000 mL, intravenous, NOW X1, 1 dose, On Tue07/11/18 at 1515, STAT 1520 (New Bag - Prov ider: Julia Jacobs RN) documented in this encounter Orders Medications Ordered That Luc ht Not Have Been Administered Count Last Ordered Date First Ordered Date ibuprofen (MOTRIN) tablet 600 mg 1 07/11/20 18 documented in this encounter Care Teams R Programmer Relationship Specialty Start Date End Date Naty Evans MD [address] [place] [address] [place] [phone] PCP - Alternate 09/30/17 04/11/19 Segundo Weems MD [address] [place] [address] [place] [phone] PCP - General 02/08/18 07/28/18 documented as of this encounter
--- OUTSIDE RECORDS SUMMARY | 2024-11-22 17:26 | XMS_ITS | Encounter Summary ---
Author Organization [facility] Address [address] [place] [address] Care Team Providers Care Associate Professor Of Chemistry Name Role Phone Naty Evans MD Unavailable Segundo Weems MD Primary Care Provider [phone] Encounter Details Date Type Department Care Team (Latest Contact Info) Description 05/19/2018 17:13 EDT - 05/19/2018 23:59 EDT Hospital Encounter [address] [address] Segundo Weems MD [address] [place] [address] Discharge Disposition: Home or Self Care Social [...] encounter Discharge Diagnoses Diagnosis E03.9 Hypothyroidism, unspecified-E03.9[ICD-10-CM] R53.83 Other fatigue-R53.83[ICD-10-CM] R76.8 Other specified abnormal immunological findings in serum-R76.8[ICD-10-CM] documented in this encounter Medications at Time of Discharge albuterol 90 mcg/actuation inhaler Inhale 2 Puffs as directed every 4 hours as needed. 1 ALPRAZolam (XANAX) 0.5 mg tablet Take 0.5 mg by mouth 3 times daily. 09/12/2017 9 amitriptyline (ELAVIL) 10 mg tablet Take 10 mg by mouth daily. 9 DOCUSATE SODIUM (COLACE ORAL) Take by mouth. 9 ERGOCALCIFEROL, VITAMIN D2, (VITAMIN D ORAL) [...] [facility] Ophthalmology - [address] [phone] Gagandeep Rome MD [address] [place] [address], [facility] [address] [place] [phone] 02/11/2025 13:30 EDT Telemedicine [facility] Hematology & Oncology [address] [phone] Dana Padilla MD [address] [place] [address], Level [address] [place] [phone] documented as of this encounter Visit Diagnoses Not on filedocumented in this encounter Care Teams Associate Professor Of Chemistry Relationship Specialty Start Date End Date Naty Evans MD [address] [place] [address] [place] [phone] PCP - Alternate 09/30/17 04/11/19 Segundo Weems MD [address] [place] [address] [place] [phone] PCP - General 02/08/18 07/28/18 documented as of this encounter
--- OUTSIDE RECORDS SUMMARY | 2024-11-22 17:26 | XMS_ITS | Encounter Summary ---
Author Organization [facility] Address [address] [place] [address] Care Team Providers Care Sales Program Coordinator Name Role Phone Naty Evans MD Unavailable Aj Issa MD Primary Care Provider + Encounter Details Date Type Department Care Team (Late st Contact Info) Description 12/07/2018 13:09 EST - 12/07/2018 23:59 EST Hospital Encounter [place] [address] [place] [address] Aj Issa MD 7 [facility] [address] [place] [address] Discharge Disposition: Auto Discharge Social History Tobacco [...] Diagnoses Diagnosis K74.60 Unspecified cirrhosis of liver-K74.60[ICD-10-CM] Z98.890 Other specified postprocedural states-Z98.890[ICD-10-CM] documented in this encounter Medications at Time [...] [facility] Ophthalmology - [address] [phone] Gagandeep Rome MD [address] [place] [address], [facility] [address] [place] [phone] 02/11/2025 13:30 EDT Telemedicine [facility] Hematology & Oncology [address] [phone] Dana Padilla MD [address] [place] [address], [facility] [address] [place] [phone] documented as of this encounter Visit Diagnoses Not on filedocumented in this encounter Care Teams Sales Program Coordinator Relationship Specialty Start Date End Date Naty Evans MD [address] [place] [address] [place] [phone] PCP - Alternate 09/30/17 04/11/19 Aj Issa MD [address] [phone] PCP - General 07/29/18 03/13/19 documented as of this encounter
--- OUTSIDE RECORDS SUMMARY | 2024-11-22 17:26 | XMS_ITS | Encounter Summary ---
Author Organization [facility] Address [address] [place] [address] Care Team Providers Care Customs Compliance Manager Name Role Phone Naty Evans MD Unavailable Segundo Weems MD Primary Care Provider [phone] Encounter Details Date Type Department Care Team (Late st Contact Info) Description 05/19/2018 Results Only [facility] [phone] Segundo Weems MD [address] [place] [address] Social History Tobacco Use Types [...] EST Office Visit [facility] Ophthalmology [address] [phone] Gagandeep Rome MD [address] [place] [address] 5 [place] [address] 02/11/2025 13:30 EDT Telemedicine [facility] Hematology & Oncology [address] [phone] Dana Padilla MD [address] [place] [address], [facility] 2 [place] [phone] documented as of this encounter Procedures Procedure Name Priority Date/Time Associated Diagnosis Comments GENOTYPE Routine 05/19/2018 9:54 EDT documented in this encounter Results * GENOTYPE (05/19/2018 9:54 EDT) Genotype Hepatitis C Virus Genotype Not Performed. 05/23/2018 14:43 EDT [facility] Comment: Specimens for HCV genotype must have a viral load of > or = 15 IU/mL. BLOOD SPECIMEN / Unknown 05/19/2018 9:54 EDT 05/19/2018 19:49 EDT us Segundo Weems MD CHEMISTRY & BLOOD GAS ORDERAB LES Final Result Performing Organization Address City/State/[facility] Co de Phone Number [facility] [address] [place] [address] documented in this encounter Visit Diagnoses Not on filedocumented in this encounter Care Teams Customs Compliance Manager Relationship Specialty Start Date End Date Naty Evans MD [address] [place] [address] MAR[place] GOMEZ [phone] PCP - Alternate 09/30/17 04/11/19 Segundo Weems MD [address] [place] [address] [place]OME[place] [phone] PCP - General 02/08/18 07/28/18 documented as of this encounter
--- OUTSIDE RECORDS SUMMARY | 2024-11-22 17:26 | XMS_ITS | Encounter Summary ---
Author Organization [facility] Address [address] [place] [address] Care Team Providers Care Vibrator Equipment Tester Name Role Phone Naty Evans MD Unavailable Aj Issa MD Primary Care Provider + Encounter Details Date Type Department Care Team (Late st Contact Info) Description 11/30/2018 Results Only Imaging [facility] [phone] Aj Issa MD [address] [place] [address] [address] [place] [address] Social History Tobacco Use Types [...] [facility] Ophthalmology - [address] [phone] Gagandeep Rome MD [address] [place] [address] [address] [place] [address] 02/11/2025 13:30 EDT Telemedicine [facility] Hematology & Oncology [address] [phone] Dana Padilla MD [address] [place] [address] [address] [place] [phone] documented as of this encounter Procedures Procedure Name Priority Date/Time Associated Diagnosis Comments RAD US ABDOMEN ONE ORGAN/QUADRANT 12/07/2018 13:58 EST documented in this encounter Results * RAD US ABDOMEN ONE ORGAN/QUADRANT (12/07/2018 13:58 EST) Anatomical Region Laterality Modality Other 12/07/2018 13:5 8 EST 12/07/2018 14:13 EST Narrative 12/07/2018 14:13 EST RAD US ABDOMEN ONE ORGAN/QUADRANT ??12/07/2018 1:58 PM Clinical History/Comments: Cirrhosis of liver without ascites, unspecified hepatic cirrhosis type COMPARISON: Renal colic CT October 21, 2018, prior ultrasounds including the most recent dated May 04, 2018 TECHNIQUE: Grayscale and limited color Doppler images were obtained of the right upper quadrant of the abdomen. FINDINGS: Pancreas: The visible portions appear normal. Liver: Normal size measuring 14.3 cm. The echogenicity is slightly heterogeneous and there is minimal nodularity to the surface of the liver. No focal liver lesion is seen. Right kidney: Normal measuring 10.2 cm Gallbladder: Status post cholecystectomy Bile ducts: Normal, the common duct measures 5.5 mm at the elizabeth hepatis Proximal aorta and IVC: Normal IMPRESSION: 1. Findings consistent with hepatic cirrhosis, no focal liver lesion identified 2. Status post cholecystectomy Procedure Note rPashanth Siddiqui MD - 12/07/2018 RAD US ABDOMEN ONE ORGAN/QUADRANT 12/07/2018 1:58 PM Clinical History/Comments: Cirrhosis of liver without ascites, unspecified hepatic cirrhosis type COMPARISON: Renal colic CT October 21, 2018, prior ultrasounds including the most recent dated May 04, 2018 TECHNIQUE: Grayscale and limited color Doppler images were obtained of the right upper quadrant of the abdomen. FINDINGS: Pancreas: The visible portions appear normal. Liver: Normal size measuring 14.3 cm. The echogenicity is slightly heterogeneous and there is minimal nodularity to the surface of the liver. No focal liver lesion is seen. Right kidney: Normal measuring 10.2 cm Gallbladder: Status post cholecystectomy Bile ducts: Normal, the common duct measures 5.5 mm at the elizabeth hepatis Proximal aorta and IVC: Normal IMPRESSION: 1. Findings consistent with hepatic cirrhosis, no focal liver lesion identified 2. Status post cholecystectomy us Aj Issa MD IMG US ORDERABLES Final Result documented in this encounter Visit Diagnoses Not on filedocumented in this encounter Care Teams Vibrator Equipment Tester Relationship Specialty Start Date End Date Naty Evans MD [address] [place] [address] [place] [phone] PCP - Alternate 09/30/17 04/11/19 Aj Issa MD [address] [place] [phone] PCP - General 07/29/18 03/13/19 documented as of this encounter
--- OUTSIDE RECORDS SUMMARY | 2024-11-22 17:26 | XMS_ITS | Encounter Summary ---
Author Organization [facility] Address [address] [place] [address] Care Team Providers Care Referral Specialist Name Role Phone Naty Evans MD Unavailable Aj Issa MD Primary Care Provider + Encounter Details Date Type Department Care Team (Latest Contact Info) Description 01/03/2019 Travel Social History Tobacco Use Types Packs/Day [...] Visit [facility] Ophthalmology - [address] [phone] Gagandeep Rome MD [address] [place] [address] 5 [place] [phone] 02/11/2025 13:30 EDT Telemedicine [facility] Hematology & Oncology [address] [phone] Dana Padilla MD [address] [place] [address], [facility] 2 [place] [phone] documented as of this encounter Visit Diagnoses Not on filedocumented in this encounter Care Teams Referral Specialist Relationship Specialty Start Date End Date Naty Evans MD [address] [place] [address] [place] [phone] PCP - Alternate 09/30/17 04/11/19 Aj Issa MD [address] [place] [phone] PCP - General 07/29/18 03/13/19 documented as of this encounter
--- OUTSIDE RECORDS SUMMARY | 2024-11-22 17:26 | XMS_ITS | Encounter Summary ---
Author Organization [facility] Address [address] [place] [address] Care Team Providers Care Industrial Robotics Mechanic Name Role Phone Naty Evans MD Unavailable Aj Issa MD Primary Care Provider + Encounter Details Date Type Department Care Team (Late st Contact Info) Description 09/07/2018 Results Only [facility] [phone] Aj Issa MD [address] [place] [address] [address] [place] [phone] Social History Tobacco Use Types [...] Visit [facility] Ophthalmology - [address] [phone] Gagandeep Rome MD [address] [place] [address], [facility] [address] [place] [address] 02/11/2025 13:30 EDT Telemedicine [facility] Hematology & Oncology [address] [phone] Dana Padilla MD [address] [place] [address] [address] [place] [address] documented as of this encounter Procedures Procedure Name Priority Date/Time Associated Diagnosis Comments OPIATE PANEL CONFIRMATION Routine 09/07/2018 17:43 EDT documented in this encounter Results * (ABNORMAL) OPIATE CONFIRMATION PANEL, U (09/07/2018 17:43 EDT) Codeine NEGATIVE <50 ng/mL 09/11/2018 7:17 EDT [facility] Hydrocodone 69(H) <50 ng/mL 09/11/2018 7:17 EDT [facility] Hydromorphone NEGATIVE <50 ng/mL 09/11/2018 7:17 EDT [facility] Morphine NEGATIVE <50 ng/mL 09/11/2018 7:17 EDT [facility] Oxycodone NEGATIVE <50 ng/mL 09/11/2018 7:17 EDT [facility] Oxymorphone NEGATIVE <50 ng/mL 09/11/2018 7:17 EDT [facility] Comment: Performed by: Button, [facility], [facility], [place] [address] URINE / Unknown 09/07/2018 1 7:43 EDT 09/07/2018 20:02 EDT us Aj Issa MD URINALYSIS ORDERABLES Fi nal Result Performing Organization Address City/State/[facility] Co de Phone Number [facility] [address] [place] [address] documented in this encounter Visit Diagnoses Not on filedocumented in this encounter Care Teams Industrial Robotics Mechanic Relationship Specialty Start Date End Date Naty Evans MD [address] [place] [address] [place] [phone] PCP - Alternate 09/30/17 04/11/19 Aj Issa MD [address] [place] [address] [address] [place] [phone] PCP - General 07/29/18 03/13/19 documented as of this encounter
--- OUTSIDE RECORDS SUMMARY | 2024-11-22 17:26 | XMS_ITS | Encounter Summary ---
Author Organization [facility] Address [address] [place] [address] Care Team Providers Care Senior Financial Accountant Name Role Phone Naty Evans MD Unavailable Aj Issa MD Primary Care Provider + Encounter Details Date Type Department Care Team (Latest Contact Info) Description 09/07/2018 10:22 EDT - 09/07/2018 10:23 EDT Hospital Encounter [address] [address] Espinoza Honeycutt MD [address] [place] [phone] Discharge Disposition: Home or Self Care Social [...] documented in this encounter Discharge Diagnoses Diagnosis Z51.81 Encounter for therapeutic drug level monitoring-Z51.81[ICD-10-CM] documented in this encounter Medications at Time [...] Office Visit [facility] Ophthalmology - [address] [phone] Gagandeep Rome MD [address] [place] [address], [facility] 5 [place] [phone] 02/11/2025 13:30 EDT Telemedicine [facility] Hematology & Oncology [address] [phone] Dana Padilla MD [address] [place] [address], [facility] 2 [place] [address] documented as of this encounter Visit Diagnoses Not on filedocumented in this encounter Care Teams Senior Financial Accountant Relationship Specialty Start Date End Date Naty Evans MD [address] [place] [address] [place] [phone] PCP - Alternate 09/30/17 04/11/19 Aj Issa MD [address] [place] [phone] PCP - General 07/29/18 03/13/19 documented as of this encounter
--- OUTSIDE RECORDS SUMMARY | 2024-11-22 17:26 | XMS_ITS | Encounter Summary ---
Author Organization [facility] Address [address] [place] [address] Care Team Providers Care Media Marketing Specialist Name Role Phone Naty Evans MD Unavailable Aj Issa MD Primary Care Provider + Reason for Visit * Reason Comments Suicidal Reports increase in family stressors today, pt denies wanting to hurt self, sts i just want it all to go away. Admits to taking Ativan 1 mg X 6 pills today to sleep. Pt was texting with her friend who called PD. Cooperative, tearful Encounter Details Date Type Department Care Team (Late st Contact Info) Description 07/29/2018 21:30 EDT - 07/30/2018 6:15 EDT Emergency [facility] Emergency Department - [address] [address] Pam Rivas PA-C [address] [facility], [address] [place] [address] Emergency, MD Rolando Suicidal ideation (Primary Dx); Medication overdose, undetermined intent, initial encounter Discharge Disposition: Home or Self Care [...] Sign Reading Time Taken Comments Blood Pressure 127/75 07/30/2018 0554 EDT Pulse 96 07/30/2018 0554 EDT Temperature 36.8 ??C (98.2 ??F) 07/29/2018 2258 EDT Respiratory Rate 18 07/30/2018 0554 EDT Oxygen Saturation 96% 07/30/2018 0554 EDT Inhaled Oxygen Concentration - - Weight 90.7 kg (200 lb) 07/29/20182137 EDT Height 165.1 cm (5' 5) 07/29/20182137 EDT Body Mass Index 33.28 07/29/2018 2138 EDT [...] documented in this encounter Discharge Diagnoses Diagnosis T42.4X2A Poisoning by benzodiazepines, intentional self-harm, initial encounter-T42.4X2A[ICD-10-CM] R40.0 Somnolence-R40.0[ICD-10-CM] R45.851 Suicidal ideations-R45.851[ICD-10-CM] K74.60 Unspecified cirrhosis of liver-K74.60[ICD-10-CM] J45.909 Unspecified asthma, uncomplicated-J45.909[ICD-10-CM] N18.9 Chronic kidney disease, unspecified-N18.9[ICD-10-CM] F41.9 Anxiety disorder, unspecified-F41.9[ICD-10-CM] E07.9 Disorder of thyroid, unspecified-E07.9[ICD-10-CM] K21.9 Gastro-esophageal reflux disease without esophagitis-K21.9[ICD-10-CM] Z86.718 Personal history of other venous thrombosis and embolism-Z86.718[ICD-10-CM] Z79.899 Other long term care social worker (current) drug therapy-Z79.899[ICD-10-CM] F17.210 Nicotine dependence, cigarettes, uncomplicated-F17.210[ICD-10-CM] Z88.6 Allergy status to analgesic agent status-Z88.6[ICD-10-CM] Z88.5 Allergy status to narcotic agent status-Z88.5[ICD-10-CM] Z88.2 Allergy status to sulfonamides status-Z88.2[ICD-10-CM] documented in this encounter Discharge Instructions * Discharge Instructions* Pam Rivas PA - 07/30/2018 5:35 EDT You have stated that you feel safe to return home. Do not take more than your prescribed amounts of medication. If you feel at risk of harming yourself or there are other concerning symptoms please return for evaluation. * Attachments The following attachments cannot be sent through Care Everywhere. * SUICIDAL THOUGHTS (CZECH) documented in this encounter Medications at Time [...] in this encounter ED Notes * Laurent Qureshi, RN - 07/30/2018 0555 EDT D/C ordered by provider. Pt maintains that she is not currently suicidal, has no suicidal thoughts or HI thoughts. Pt maintains a safety plan put in place by sas administrator. She is to phone [facility] [place] and the on-staff wire machine cutter reassured this RN that they will be calling her tonight and set up outpatient regular office visits. All belongings that were brought with pt via EMS were given back to pt on discharge. AxOx3, Skin P/W/D, RR and WNL, ambulatory without difficulty. NAD. * Laurent Qureshi RN - 07/30/2018 0515 EDT Sleeping, RR and WNL. 1:1 observation continued for pt safety. * Sowmya Flores RN - 07/29/2018 2332 EDT Blood drawn via butterfly needle per protocol, [place], lavender and blue tube(s) sent to lab per order. * Julissa Multani RN - 07/29/2018 2328 EDT Pt medicated for 7/10 epigastric pain per MAR, labs obtained and sent. Pt remains cooperative with cares. Will continue to monitor. * Pam Rivas PA - 07/29/2018 2304 EDT DOS: 07/29/2018 Chief Complaint Patient presents with ??? Suicidal Reports increase in family stressors today, pt denies wanting to hurt self, sts i just want it allto go away. Admits to taking Ativan 1 mg X 6 pills today to sleep. Pt was texting with her friend who called PD. Cooperative, tearful HPI HPI Comments: I, Brian Butt, am scribing for Pam Rivas PA while she is personally performing the service. Brian Page 07/29/2018 23:05 Tara Yun is a 58 y.o. female with a history of cirrhosis of the liver, asthma, anxiety, depression, CKD, hypersplenism, and splenic vein thrombosis who presents to the ED via EMS for suicidal ideation. Patient reports she has been arguing a lot recently with her granddaughter as well as several other family members, and has been significantly more stressed out lately. She then texted her friend that she wanted to kill herself and her friend called the police. She was then sent here for evaluation. Patient admits to taking 6 of her prescribed pills of 1 mg Ativan to help calm her down this evening around 1700. She states she took a single one but continued to feel very anxious and wascrying and shaking so she took 5 more. She denies taking any other drugs or drinking alcohol. Patient currently reports that she feels sleepy. She also endorses some upper abdominal pain which she says she has had before, and which she thinks may be secondary to her splenic vein thrombosis. Patientcurrently denies wanting to kill herself. She states she was tired of hearing everyone's problems. She has no other acute complaints. Social history: Smokes cigarettes (0.5 ppd, 10 pack-years). No alcohol use. The history is provided by medical records, the patient and the EMS personnel. Review of Systems Review of Systems Constitutional: Negative for fever. Feeling sleepy HENT: Negative for congestion and rhinorrhea. Eyes: Negative for pain. Respiratory: Negative for cough. Cardiovascular: Negative for chest pain. Gastrointestinal: Positive for abdominal pain. Genitourinary: Negative for flank pain. Musculoskeletal: Negative for back pain. Skin: Negative for wound. Allergic/Immunologic: Negative for immunocompromised state. Neurological: Negative for headaches. Psychiatric/Behavioral: Positive for suicidal ideas. Negative for confusion. The patient is nervous/anxious. The patient's past medical, family and social history was reviewed and updated as needed. Allergies Allergen Reactions ??? Morphine Anaphylaxis ??? Sulfa (Sulfonamide Antibiotics) Anaphylaxis ??? Tylenol [Acetaminophen] Other (See Comments) Contraindication with medical hx ??? Toradol [Ketorolac] Shortness Of Breath ??? Aspirin Other (See Comments) Contraindication with medical hx ??? Lyrica [Pregabalin] Anxiety Insomnia ??? Reglan [Metoclopramide Hcl] Rash Vital Signs Temp: 36.8 ??C (98.2 ??F) Temp src: Oral Pulse: 96 Resp: 18 SpO2: 96 % BP: 127/75 BP Device: BP Machine Patient Position: Sitting BP Cuff Location: Right [...] breath sounds normal. No respiratory distress. Abdominal: There is no tenderness. No notable tenderness on protuberant abdomen. Musculoskeletal: Normal range of motion. Neurological: She is alert and oriented to person, place, and time. She exhibits normal muscle tone. Somnolent but easily arousable. Skin: Skin is warm and dry. No rash noted. Psychiatric: She has a normal mood and affect. Nursing note and vitals reviewed. RESULTS EKG orders: None Radiology orders: None ED Lab Results Labs Reviewed COMPLETE BLOOD COUNT AND DIFFERENTIAL - Abnormal Result Value Status WBC 1.46 (*) Final RBC 4.11 Final Hemoglobin 11.5 (*) Final HCT 34.6 (*) Final MCV 84 Final MCH 28.0 Final MCHC 33.2 Final RDW-CV 15.3 (*) Final RDW-SD 46.4 Final PLT 42 (*) Final MPV 9.8 Final Neutrophils 82.0 Final Bands 2.0 Final Lymphocytes 8.0 Final Monocytes 6.0 Final Eosinophils 1.0 Final Basophils 1.0 Final ABS Neutrophils 1.20 (*) Final ABS Bands 0.03 Final ABS Lymphs 0.12 (*) Final ABS Monocytes 0.09 (*) Final ABS Eosinophils 0.01 (*) Final ABS Basophils 0.01 Final Ovalocytes 2+ Final Basophilic Stippling Present in <2% of RBCs Final Type of Diff: Manual Final COMPREHENSIVE METABOLIC PANEL (CMP) - Abnormal Potassium 3.4 (*) Final Sodium 141 Final Chloride 106 Final CO2 27 Final Total Alkaline Phosphatase 78 Final Bilirubin, Total 0.7 Final AST 23 Final ALT 28 Final Albumin 3.9 Final Total Protein 6.7 Final Creatinine 0.74 Final GFR, Calculated 90 Final BUN 12 Final Calcium 9.0 Final Calculated Calcium 9.1 Final Glucose, Serum 89 Final Fasting? Unknown Final PROTIME - Abnormal Pro Time 15.1 (*) Final I.N.R. 1.3 (*) Final LIPASE Lipase 77 Final ACETAMINOPHEN Acetaminophen <10.0 Final SALICYLATE Salicylate <1.0 Final Relevant Data Procedures ED COURSE A medical screening exam was performed. This is a 58 year old female with a history of cirrhosis ofthe liver, asthma, anxiety, depression, CKD, hypersplenism, and splenic vein thrombosis who presents after making suicidal statements today and also complaining of upper abdominal pain. On exam she is somnolent but easily arousable. She has no notable tenderness on protuberant abdomen. Patient placed on constant observation. In my medical opinion, the patient potentially meets EE criteria and requires a formal psychiatric evaluation, and therefore is not allowed to leave the Emergency Department. Patient given Mylanta and 2% viscous lidocaine solution 15 ml PO. Has benign abd exam. Patient had labs that were reviewed independently by myself, significant for stable pancytopenia. 00:10. Spoke with Crisis, who will evaluate. 05:30. Spoke with sas administrator, who cleared the patient for discharge. Patient is scheduled to meet with a social problems specialist on the of this month. She will also follow up with psychiatry. Moe do a phone check with her as well. Patient was discharged to home. Prior to discharge my usual and customary return precautions were reviewed with the patient and/or family. This included follow-up instructions and reasons to return to the Emergency Department if condition worsens, does not improve as expected, or other new concerns arise. ASSESSMENT AND PLAN Final diagnoses: Suicidal ideation Medication overdose, undetermined intent, initial encounter DISPOSITION: Discharged The patient's pain was managed to an adequate level weighing risk vs. benefit of further medications. Upon departure from the Emergency Department, the patient's pain was 0 on a zero to ten scale. Any further pain treatment will be at the discretion of the provider following up with the patient based on their clinical assessment. Condition at departure from the Emergency Department: Stable PCP: Aj Issa MDM Number of Diagnoses or Management Options Medication overdose, undetermined intent, initial encounter: Suicidal ideation: Diagnosis management comments: 3 Zeina Elliott 08/01/2018 20:25 No flowsheet data found. Zeina De Santiagolivan was available for supervision. This documentation is recorded by Brian Butt acting as Scribe under the direction and presence of Pam Rivas PA. Pam Rivas PA: I personally performed the services recorded by the scribe in my presence. I confirm the scribe's documentation has been reviewed by me to accurately and completely record my work, treatment, procedures, and medical decision making. * Julissa Multani RN - 07/29/2018 2300 EDT Sleeping on cart, awakens easily to voice, remains under CO will continue to monitor. * Julissa Multani RN - 07/29/2018 2148 EDT Pt changed into scrubs, belongings placed into bag, labeled, placed in closet. Pt cooperative throughout. documented in this encounter Miscellaneous Notes * ED Consult - Telma Munguia - 07/30/2018 0615 EDT Mangle Feeder Initial Assessment Note Admit Date: 07/29/2018 Date of Consult: 07/30/2018 Suicidal Presenting Information: Tara is a 58 y/o F with hx of anxiety, depression and PTSD who came in via ambulance after taking 6 lorazepam and expressed SI to friend after doing so. CC met with Ct who presented alseep on the stretcher and difficult to arouse. Ct maintained sleeping position during the assessment and made some eye contact while appearing sleepy/sedated. Ct reported an argument between her daughter (lives in [place]) and 18 y/o granddaughter where horrible things were said on facebook which upset Ct. Ct said she tries not to get involved in their drama, however appears to be emotionally affected by it. She said that family conflict often triggers her anxiety and she reaches out to Ar[facility] at [facility] for support. She felt like she was falling apart and couldn't find anyone to talk to. Karlene said she wanted to relax and get some rest after feeling overwhelmed and took 1mg lorazepam (prescribed PRN for sleep/anxiety) which didn't help, thus she decided to take 5 more. Within a few minutes she started to feel sleepy and was reaching out via text to family members who were trying to support her. She called a friend and told him what she had done and he called 911to have Ct brought to the ED. Karlene has multiple medical conditions and chronic pain for which [facility] notes a hx of opiate seeking bx. Substance Use (if applicable): Ct denies, however [facility] notes +cocaine utox in 2015. Relevant Psychosocial Information: Rents a room from an older couple and shares their home. Mental Status Appearance: Disheveled Attitude: Cooperative Behavior: No Distubance Noted Normal Rate / Rhythm / Tone Mood: Other Sleepy Sleep Pattern: Difficulty Falling Asleep Appetite: No Disturbance Noted Affect: Mood Congruent Thought Process: Clear, Coherent, Organized and Goal-Directed Perception: No Disturbance Noted Cognitions: Alert and Oriented Insight: Fair Judgement: Fair Concentration: Fair Orientation: Oriented times three Risk Assessment Suicidality: Ct denies SI at this time and denies SI/intent to end her life when she took the pillslast night. Ct denies past SI/SA, including last year when she took xanax. She is future oriented in meeting with Aramis on 08/01 for therapy/support. While upset at the time at her friend for calling 911, she is not upset any longer and regretted taking the pills immediately after. Ct only wanted to get some sleep which she's had difficulty with for a while now. Homicidality: denies Clinical Interpretation: Following family conflict, Ct wanted to relax and get some rest, which hasbeen difficult due to her anxiety. In poor judgement, Ct took more than prescribed of her lorazepam, but not a lethal amount. Ct would benefit from ongoing outpatient support which she has in place and plans to meet with YOLANDA on Tuesday. Plan: The plan for this patient is: Discharge from ED to Follow Up Provider Consultation with: Romina Evans & Ketty MUNGUIA Mangle Feeder [facility] documented in this encounter Plan of Treatment Upcoming Encounters Date Type Department Care Team (Late st Contact Info) Description 01/04/2025 13:00 EST Office Visit [facility] Ophthalmology - [address] [id number] Gagandeep Rome MD [address] [place] [address], [address] [place] [address] 02/11/2025 13:30 EDT Telemedicine [facility] Hematology & Oncology - [address] [address] Dana Padilla MD [address] [place] [address], [address] [place] [address] documented as of this encounter Procedures Procedure Name Priority Date/Time Associated Diagnosis Comments PROTIME STAT 07/29/2018 23:24 EDT COMPLETE BLOOD COUNT AND DIFFERENTIAL STAT 07/29/2018 23:24 EDT LIPASE STAT 07/29/2018 23:24 EDT ACETAMINOPHEN STAT 07/29/2018 23:24 EDT SALICYLATE STAT 07/29/2018 23:24 EDT COMPREHENSIVE METABOLIC PANEL (CMP) STAT 07/29/2018 23:24 EDT documented in this encounter Results * SALICYLATE (07/29/2018 23:24 EDT) Salicylate <1.0 mg/dl 07/30/2018 0:06 EDT [facility] Comment: Negative = <2 mg/dl Therapeutic = <20 mg/dl Toxic = >30 mg/dl Blood specimen (specimen) BLOOD SPECIMEN / Unknown 07/29/2018 23:24 EDT 07/29/2018 23:34 EDT Pam Lindale PA-C CHEMISTRY & BLOOD GAS O RDERABLES Final Result Performing Organization Address City/[facility]/ZIP Co de Phone Number [facility] [address] [place] [address] * ACETAMINOPHEN (07/29/2018 23:24 EDT) Acetaminophen <10.0 ug/ml 07/30/2018 0:06 EDT [facility] Comment: Therapeutic range: ??10 - 30 ug/mL Possible toxicity: ??150 - 200 ug/mL Probable toxicity: ??>200 ug/mL Blood specimen (specimen) BLOOD SPECIMEN / Unknown 07/29/2018 23:24 EDT 07/29/2018 23:34 EDT Pam Lindale PA-C CHEMISTRY & BLOOD GAS O RDERABLES Final Result Performing Organization Address [facility] Co de Phone Number [facility] [address] [place] [address] * (ABNORMAL) PROTIME (07/29/2018 23:24 EDT) Pro Time 15.1(H) 10.3 - 13.4 secs 07/29/2018 23:53 EDT [facility] I.N.R. 1.3(H) 0.9 - 1.1 Ratio 07/29/2018 23:53 EDT [facility] Comment: Moderate Intensity Coumadin INR = 2.0-3.0 Adjustments in anticoagulant therapy dose should be based upon the INR and NOT the Pro Time. Blood specimen (specimen) BLOOD SPECIMEN / Unknown 07/29/2018 23:24 EDT 07/29/2018 23:34 EDT Pam Lindale PA-C HEMATOLOGY & PF4 ORDERA BLES Final Result Performing Organization Address [facility]/ZIP Co de Phone Number [facility] [address] [place] [id number] * LIPASE (07/29/2018 23:24 EDT) Lipase 77 <251 U/L 07/30/2018 0:06 [facility] Blood specimen (specimen) BLOOD SPECIMEN / Unknown 07/29/2018 23:24 EDT 07/29/2018 23:34 EDT Pam Rivas PA-C CHEMISTRY & BLOOD GAS O RDERABLES Final Result [facility] [address] [place] [address] * (ABNORMAL) COMPREHENSIVE METABOLIC PANEL (CMP) (07/29/2018 23:24 EDT) Potassium 3.4(L) 3.5 - 5.0 mEq/L 07/30/2018 0:06 [facility] Sodium 141 136 - 145 mEq/L 07/30/2018 0:06 [facility] Chloride 106 96 - 110 mEq/L 07/30/2018 0:06 [facility] CO2 27 22 - 32 mEq/L 07/30/2018 0:06 [facility] Total Alkaline Phosphatase 78 38 - 126 U/L 07/30/2018 0:06 [facility] Bilirubin, Total 0.7 <1.4 mg/dl 07/30/20 18 0:06 [facility] AST 23 15 - 46 U/L 07/30/2018 0:06 [facility] ALT 28 <53 U/L 07/30/2018 0:06 [facility] Albumin 3.9 3.4 - 4.9 g/dl 07/30/2018 0:06 [facility] Total Protein 6.7 6.3 - 8.2 g/dl 07/30/2018 0:06 [facility] Creatinine 0.74 0.52 - 1.04 mg/dl 07/30/2018 0:06 [facility] GFR, Calculated 90 >60 ml/min/1.7 3m2 07/30/2018 0:06 [facility] Comment: eGFR calculated using CKD-EPI equation for non Americans. Multiply eGFR by 1.16 for Americans. BUN 12 10 - 26 mg/dl 07/30/2018 0:06 [facility] Calcium 9.0 8.5 - 10.5 mg/dl 07/30/2018 0:06 [facility] Calculated Calcium 9.1 8.5 - 10.5 mg/dl 07/30/2018 0:06 [facility] Glucose, Serum 89 70 - 100 mg/dl 07/30/2018 0:06 [facility] Fasting? Unknown 07/29/2018 23:35 [facility] Blood specimen (specimen) BLOOD SPECIMEN / Unknown 07/29/2018 23:24 EDT 07/29/2018 23:34 EDT Pam Rivas PA-C CHEMISTRY & BLOOD GAS O RDERABLES Final Result [facility] [address] [place] [address] * (ABNORMAL) COMPLETE BLOOD COUNT AND DIFFERENTIAL (07/29/2018 23:24 EDT) WBC 1.46(L) 4.0 - 12.4 K/cmm 07/29/2018 23:52 [facility] RBC 4.11 3.86 - 5.04 M/cmm 07/29/2018 23:52 [facility] Hemoglobin 11.5(L) 11.6 - 15.2 gm/dl 07/29/2018 23:52 [facility] HCT 34.6(L) 34.9 - 44.4 % 07/29/2018 23:52 [facility] MCV 84 81 - 98 fl 07/29/2018 23:52 [facility] MCH 28.0 26.7 - 33.3 pg 07/29/2018 23:52 [facility] MCHC 33.2 32.1 - 35.9 gm/dl 07/29/2018 23:52 [facility] RDW-CV 15.3(H) <14.7 % 07/29/2018 23:52 [facility] RDW-SD 46.4 <50.4 fl 07/29/2018 23:52 [facility] PLT 42(L) 141 - 377 K/cmm 07/29/2018 23:52 [facility] MPV 9.8 9.5 - 12.7 fl 07/29/2018 23:52 [facility] Neutrophils 82.0 % 07/30/2018 0:15 [facility] % Bands 2.0 % 07/30/2018 0:15 [facility] Lymphocytes 8.0 % 07/30/2018 0:15 [facility] Monocytes 6.0 % 07/30/2018 0:15 [facility] Eosinophils 1.0 % 07/30/2018 0:15 [facility] Basophils 1.0 % 07/30/2018 0:15 [facility] ABS Neutrophils 1.20(L) 2.20 - 8.85 K/cmm 07/30/2018 0:15 [facility] ABS Bands 0.03 K/cmm 07/30/2018 0:15 [facility] ABS Lymphs 0.12(L) 1.09 - 3.30 K/cmm 07/30/2018 0:15 [facility] ABS Monocytes 0.09(L) 0.1 - 0.8 K/cmm 07/30/2018 0:15 [facility] ABS Eosinophils 0.01(L) 0.03 - 0.61 K/cmm 07/30/2018 0:15 [facility] ABS Basophils 0.01 0.01 - 0.11 K/cmm 07/30/2018 0:15 [facility] Ovalocytes 2+ 07/30/2018 0:15 [facility] Basophilic Stippling Present in <2% of RBCs 07/30/2018 0:15 EDT [facility] Type of Diff: Manual 07/30/2018 0:15 EDT [facility] Blood specimen (specimen) BLOOD SPECIMEN / Unknown 07/29/2018 23:24 EDT 07/29/2018 23:34 EDT Pam Rivas PA-C PACKAGES & DNA PROBE OR DERABLES Final Result [facility] [address] [place] [address] documented in this encounter Visit Diagnoses Diagnosis Suicidal ideation- Primary Medication overdose, undetermined intent, initial encounter documented in this encounter Administered Medications Inactive Administered Medications - up to 3 most recent administrations Medication Order MAR Action Action Date Dose Rate Site aluminum & magnesium hydroxide-simethicone (MYLANTA-DS) 400-400-40 mg/5 mL suspension 15 mL 15 mL, oral, NOW X1, 1 dose, On 07/29/18 at 2330, STAT Given 07/29/2018 23:25 EDT 15 mL lidocaine (XYLOCAINE) 2 % viscous solution 15 mL 15 mL, oral, NOW X1, 1 dose, On 07/29/18 at 2330, STAT Given 07/29/2018 23:25 EDT 15 mL documented in this encounter Active and Recently Administered Medications Times are shown in EDT. Scheduled Medication Order 07/28/2018 07/29/2018 07/30/2018 aluminum & magnesium hydroxide-simethicone (MYLANTA-DS) 400-400-40 mg/5 mL suspension 15 mL (COMPLETED)(Linked Group 1) 15 mL, oral, NOW X1, 1 dose, On 07/29/18 at 2330, STAT 2325 (Given - Provider: Julissa Multani RN) lidocaine (XYLOCAINE) 2 % viscous solution 15 mL (COMPLETED)(Linked Group 1) 15 mL, oral, NOW X1, 1 dose, On 07/29/18 at 2330, STAT 2325 (Given - Provider: Julissa Multani RN) Linked Groups Order Group 1: lidocaine (XYLOCAINE) 2 % viscous solution 15 mL (COMPLETED)Jump to med 15 mL, oral, NOW X1, 1 dose, On 07/29/18 at 2330, STAT And aluminum & magnesium hydroxide-simethicone (MYLANTA-DS) 400-400-40 mg/5 mL suspension 15 mL (COMPLETED)Jump to med 15 mL, oral, NOW X1, 1 dose, On 07/29/18 at 2330, STAT documented in this encounter Care Teams Media Marketing Specialist Relationship Specialty Start Date End Date Naty Evans MD [address] [place] [address] [place] [id number] PCP - Alternate 09/30/17 04/11/19 Aj Issa MD [address] [id number] PCP - General 07/29/18 03/13/19 documented as of this encounter
--- OUTSIDE RECORDS SUMMARY | 2024-11-22 17:26 | XMS_ITS | Encounter Summary ---
Author Organization [facility] Address [address] [place] [address] Care Team Providers Care City Collector Name Role Phone Naty Evans MD Unavailable Aj Issa MD Primary Care Provider + Reason for Referral * Follow Up (Routine) - Receiving Office to Obtain Authorization Specialty Diagnoses / Procedures Referred By [facility] Referred To Contact Diagnoses Influenza Ananda Cagle MD Phone: tel: fax: Referral ID Status Reason Start Date Expiration Date Visits Requested Visits Authorized [id number] Receiving Office to Obtain Authorization Continuity of Care 9 1 1 Question Answer Reason for Request: Hospitalization Reason for Visit * Reason Comments Shortness of Breath cough x4 days, webb d ems for SOB, dizzy, fever and pounding headache. Known asthma. Bilateral wheezing. QUIROZ Cirrhosis pt states chronic WBC Encounter Details Date Type Department Care Team (Late st Contact Info) Description 01/03/2019 21:55 EST - 01/05/2019 13:15 EST Hospital Encounter [facility] Emergency Department - [address] [place] [address] [place] [address] Jordan Arizmendi MD 111 [facility], Level [address] [place] [address] Mana Monique MD [address] [place] [id number] Alethea Alexis MD MPH [address] [id number] Karol Mejia MD [address] [address] Quique Page MD 111 [facility] [address] [place] [id number] Influenza (Primary Dx); Pancytopenia (HCC-CMS); Mild persistent asthma without complication; Chronic midline thoracic back pain; Cirrhosis of liver without ascites, unspecified hepatic cirrhosis type (HCC-CMS); Other specified hypothyroidism Discharge Disposition: Home or Self Care Social [...] Sign Reading Time Taken Comments Blood Pressure 125/70 01/05/2019 1313 EST Pulse 81 01/05/2019 1313 EST Temperature 36.7 ??C (98.1 ??F) 01/05/2019 1313 EST Respiratory Rate 18 01/05/2019 1313 EST Oxygen Saturation 96% 01/05/2019 1313 EST Inhaled Oxygen Concentration - - Weight 88.5 kg (195 lb) 01/03/2019 1356 EST Height 165.1 cm (5' 5) 01/03/2019 1356 EST Body Mass Index 32.45 01/03/2019 1356 EST documented in this encounter [...] Inderjit Radofrd RN documented in this encounter Discharge Diagnoses Diagnosis A41.9 Sepsis, unspecified-A41.9[ICD-10-CM] D61.818 Other pancytopenia-D61.818[ICD-10-CM] E87.2 ACIDOSIS[ICD-10-CM] K76.6 Portal hypertension-K76.6[ICD-10-CM] M06.9 Rheumatoid arthritis, unspecified-M06.9[ICD-10-CM] K74.60 Unspecified cirrhosis of liver-K74.60[ICD-10-CM] J45.30 Mild persistent asthma, uncomplicated-J45.30[ICD-10-CM] E03.9 Hypothyroidism, unspecified-E03.9[ICD-10-CM] J10.1 Influenza due to other identified influenza virus with other respiratory manifestations-J10.1[ICD-10-CM] R50.81 Fever presenting with conditions classified elsewhere-R50.81[ICD-10-CM] N18.9 Chronic kidney disease, unspecified-N18.9[ICD-10-CM] F17.210 Nicotine dependence, cigarettes, uncomplicated-F17.210[ICD-10-CM] F32.9 Major depressive disorder, single episode, unspecified-F32.9[ICD-10-CM] E66.9 Obesity, unspecified-E66.9[ICD-10-CM] Z68.35 Body mass index (BMI) 35.0-35.9, adult-Z68.35[ICD-10-CM] M54.9 Dorsalgia, unspecified-M54.9[ICD-10-CM] Z79.891 intermediate (current) use of opiate analgesic-Z79.891[ICD-10-CM] D73.1 Hypersplenism-D73.1[ICD-10-CM] K75.81 Nonalcoholic steatohepatitis (QUIORZ)-K75.81[ICD-10-CM] G89.29 Other chronic pain-G89.29[ICD-10-CM] documented in this encounter Discharge Summaries * Demian Quiroga MD - 01/05/2019 0806 EST Medicine Discharge Summary Primary Care Provider: Aj Issa Attending Physician: Alethea Alexis MD Admit Date: 01/03/2019 Discharge Date: 01/05/19 Disposition: Home or self care Reason for Admission: Shortness of breath Principal/Final Diagnosis: Pancytopenia ([facility]) Additional Problems Managed in the Hospital Active Hospital Problems Diagnosis Date Noted ??? *Influenza A 01/03/2019 ??? Cirrhosis of liver ([facility]) 09/30/2017 Likely secondary to NAFLD ??? Hypothyroidism 09/30/2017 ??? Chronic back pain 09/09/2017 Taking oxycodone and gabapentin ??? Pancytopenia ([facility]) 07/18/2015 ??? Mild persistent asthma without complication 07/18/2015 Resolved Hospital Problems Diagnosis Date Noted Date Resolved ??? Sepsis ([facility]) 01/05/2019 01/05/2019 ??? Fever 01/03/2019 01/05/2019 Hospital Course: Tara Boothe is a 58 y.o. female with a PMHx of chronic pancytopenia, cirrhosis of the liver, mild persistent asthma and hypothyroidism who presented to the ED with 4-5 days of cough. In the ED, she was found to have sepsis (febrile, tachycardic, tachypnea) with a viral swab positive for Influenza A. She was admitted to medicine and treated supportively for the flu with tamiflu and duonebs. This patient has chronic pancytopenia in the setting of cirrhosis and splenomegaly and and is followed by Hematology as an outpatient. It was acutely worsened due to the flu in the setting of sepsis. Of note prior to discharge the patient did have some small amount of bright red blood in her stool, however JASVIR was unremarkable, CBC was stable prior to discharge and she remained stable on room air without hypotension. She was discharged home on 01/05. Condition at Discharge: Improved Clinical Issues Needing Follow-up: - follow up with PCP - continue tamiflu for a total of 72 hours (1 further day) Allergies Allergen Reactions ??? Morphine Anaphylaxis ??? Sulfa (Sulfonamide Antibiotics) Anaphylaxis ??? Tylenol [Acetaminophen] Other (See Comments) Contraindication with medical hx ??? Toradol [Ketorolac] Shortness Of Breath ??? Aspirin Other (See Comments) Contraindication with medical hx ??? Lyrica [Pregabalin] Anxiety Insomnia ??? Reglan [Metoclopramide Hcl] Rash Immunization History Administered Date(s) Administered ? ? Pneumococcal Polysaccharide (PPSV23) Vaccine (PNEUMOVAX-23) =>2YO SQ/IM 07/18/2015 Results Pending at Discharge Test results still pending from this admission Procedure Component Value Units Date/Time Bacterial Culture, Blood [[id number]] Collected: 01/03/192110 Lab Status: In process Specimen: Blood Updated: 01/03/192137 Bacterial Culture, Blood [[id number]] Collected: 01/03/192110 Lab Status: In process Specimen: Blood Updated: 01/03/192136 Upcoming Appointments Jan 11, 2019 10:00 EST New Patient Visit with Tatyaan Washington APRN [facility] - [place] (--) [facility] [place] [address] Discharge Handoff Communication Following information conveyed to the office of Dr. Issa, by Darshan Lucero: ?? Reason for admission and final diagnosis ?? Medication changes ?? Appointments and tests needed after discharge (includes repeat studies and at what interval) ?? Tests (laboratory, pathology, etc.) pending at discharge ?? Anticoagulation plan if applicable (including medications and next blood draw) Discharge Summary Completed By: Ananda Cagle MD 01/05/19 ATTENDING ATTESTATION: Date of service: 01/05/2019 I interviewed and examined the patient; reviewed interval labs, events, and notes; and discussed the case with Dr. Cagle (medicine house staff team). I agree with and edited the findings and plan ofcare as documented in the discharge summary above. I reviewed the discharge instructions and follow-up plan with the patient. Demian Quiroga MD Internal Medicine Hospitalist 01/05/2019 17:14 documented in this encounter Medications at Time [...] mcg by mouth daily. Unknown dose 11/03/2020 oseltamivir (TAMIFLU) 75 mg capsule Take 1 Cap by mouth 2 times daily for 2 days. 4 Cap 01/05/2019 01/07/2019 documented as of this encounter Ordered Prescriptions Prescription Sig Dispense Quantity Refills Last Filled Start Date End Date oseltamivir (TAMIFLU) 75 mg capsule Take 1 Cap by mouth 2 times daily for 2 days. 4 Cap 01/05/2019 01/07/2019 documented in this encounter Discharge Disposition Disposition Code Departure Means Destination Home or Self Care Walk-out Home documented in this encounter Progress Notes * Anthony Garcia, RT - 01/04/2019 1307 EST Images from the original note were not included. Respiratory Consult/Progress Note Indications for Respiratory therapy: Flu / Asthma Data Vitals: Heart Rate: 88 BPM, Resp: 18, SpO2: 95 % FIO2/O2 Device: None RT Orders: Q4 Albuterol MDi Bid Flovent Q4 prn Duoneb Protocol Scoring: Bronchodilator/Inhalation Therapy Frequency Bronchodialator - Clinical Indications: Home regimen Breath Sounds: Faint wheezing, decreased throughout Response: Mild response, increase subjective per CARBONIZER TESTER Pulse: <100 Resp Rate: 18-25 SOB: With exertion Total Score: 5 Comment:: Follow home routine Airway Clearance Therapy Frequency Airway Clearance - Clinical Indications: Productive cough Breath Sounds: Rhonchi / crackles Sputum: Small (tsp) / None Consistency: None Cough Effort: Strong, non-productive Color: None Total Score: 1 Hyperinflation Therapy Frequency Hyperinflation - Clinical Indications: Decreased breath sounds with increased FiO2 Breath Sounds: Other Surgery: No X-Ray / Atelectasis: No O2 Requirements: O2 at baseline Mobility Status: Mobile / at baseline Total: 1 Action/Events 0900- MDi treatments given. Patient used good technique with little coaching including mouth rinse. 1300- Albuterol MDi given. Tolerated well npc Response/Results Continue patient's home MDi routine. RT Carmine 01/04/19 * Demian Quiroga MD - 01/04/2019 1239 EST Medicine Progress Note Service Date: 01/04/2019 Admit Date: 01/03/2019 21:55 Reason for Admission: 58 y.o. female admitted with a chief complaint of shortness of breath, cough,and fever and now with a principal diagnosis of sepsis secondary to influenza. 24 Hour Events: none Subjective/Objective Subjective This morning Phyliss tells me she is feeling better than when she first arrived yesterday. She is still feeling mild shortness of breath, having muscle aches, and rib pain due to excessive coughing. She also says she has no appetite and she did not eat any of her breakfast. She is denying chest pain, nausea/vomiting, abdominal pain, and pain or swelling in her extremities. She expressed understanding and agreement with our medical plan going forward. Review of Systems A complete 10 point ROS was peformed and pertinent positive and negative findings listed in HPI, otherwise negative. Objective Vital Signs Temp: [37.4 ??C (99.3 ??F)-39.3 ??C (102.7 ??F)] (), Heart Rate: [92 BPM-132 BPM] (), Resp: [12-27](), BP: (106-130)/(69-81) (), SpO2: [93 %-100 %] () on RA Physical Exam General: Appears lethargic but non-toxic and not in acute distress HEENT: Pupils are equal and reactive to light; EOM intact; no scleral icterus. Oropharynx clear andw/o exudate; moist mucous membranes. CV: regular rate and rhythm, normal s1 and s2, no murmurs or extra heart sounds, PMI is nondisplaced. No JVD present, Lungs: normal respiratory effort on room air; diffuse wheezing throughout lung godwin Abdomen: Non-distended, no masses. Normal bowel sounds present. Non-tender to palpation throughout. Neuro: Alert and oriented x3 Extremity: no edema or erythema; non-tender to palpation in venous distribution Skin: No apparent rashes in areas visualized. Is PICC or central line present? no Medications Reviewed, notable for oseltamivir Labs Reviewed. Notable for lactate 3.5 -> 1.2, WBC 0.90 with ANC 790, Hb 8.0 -> 9.4, plts 25, INR 1.5 Respiratory viral swab positive for influenza A Imaging Reviewed: CXR from admission personally reviewed Assessment/Plan Assessment Tara Boothe is a 58 y/o female with a PMHx significant for chronic pancytopenia, cirrhosis in thesetting of NAFLD, hepatitis C, portal HTN, hepatic encephalopathy, mild persistent asthma, and hypothyroidism who presented with a CC of 4-5 days of cough and 1 day history of fevers, chills, and myalgias who was tested positive for influenza A. This patient most likely developed sepsis and acute hypoxemic respiratory failure secondary to influenza infection. Patient appears to be clinically improving with improvement in lactate and resolution or hypoxia. Given that she is not currently spiking fevers and her PMN count is above 500 she does not meet criteria for neutropenic fever, therefore will hold empiric antibiotic treatment at this time. She would benefit from overnight admission, vital sign monitoring, influenza treatment, and symptomatic treatment. Plan Principal Problem: Sepsis secondary to influenza with Pancytopenia ([facility]): Acute hypoxic respiratory failure now resolved - tylenol 650 mg q6H - Tamiflu 75mg BID for 5 days - d/c cefepime - follow blood cultures - CBC with differential tomorrow Active Problems: Pancytopenia: Chronic pancytopenia, followed by hematology, likely acutely worsened in the setting of sepsis. No signs or symptoms of bleeding. - continue to monitor clinically and daily CBC - transfuse for plts < 10, < 20 and febrile, < 50 - transfuse for Hb < 7 Mild persistent asthma without complication - duonebs q4h - SOFT MUD MOLDER albuterol Cirrhosis of liver ([facility]): compensated - LFTs stable - most recent INR is 1.3 - INR tomorrow AM Hypothyroidism - SOFT MUD MOLDER levothyroxine Chronic Pain / Anxiety - Amitriptyline 10 mg at night - lidocaine patch - continue SOFT MUD MOLDER alprazolam Diet - regular VTE Prophylaxis -none in the setting of thrombocytopenia Discharge Plan -uncertain at this time - Anticipate possible discharge home tomorrow, if patient remains hemodynamically stable overnight and clinically improved. Consults - none Felice JETER 01/04/2019 12:40 ATTENDING ATTESTATION Date of service: 01/04/2019 I interviewed and examined the patient with CORONA Muñoz and house staff team on 01/04/2019 . I have personally reviewed laboratory data and interim records. The case was discussed with Dr. Servin and Dr. Cagle (medicine house staff). I agree with findings and plan of care as documented by the resident. Please see my additions/changes in blue. Demian Quiroga MD Internal Medicine Hospitalist 01/04/2019 21:45 * Cynthia Hugo, RT - 01/03/2019 1414 EST Respiratory Consult/Progress Note Indications for Respiratory therapy: sob,wheezy via EMS Data Vitals: Heart Rate: 108 BPM, Resp: 25, SpO2: 99 % FIO2/O2 Device: O2 Flow Rate (L/min): 2 l/min, , , RT Orders: duoneb x1 Albuterol x1 Protocol Scoring: Bronchodilator/Inhalation Therapy Frequency Bronchodialator - Clinical Indications: History of bronchospasm Breath Sounds: Faint wheezing, decreased throughout Response: Mild response, increase subjective per CARBONIZER TESTER Pulse: >100 Resp Rate: 18-25 SOB: At rest Total Score: 7 Airway Clearance Therapy Frequency Airway Clearance - Clinical Indications: Productive cough Breath Sounds: Rhonchi / crackles Sputum: Moderate (tbs) Consistency: Thin / thick Cough Effort: Strong, productive Color: Clear / white Total Score: 4 Hyperinflation Therapy Frequency Hyperinflation - Clinical Indications: Decreased breath sounds with increased FiO2 Breath Sounds: Other Surgery: No X-Ray / Atelectasis: No O2 Requirements: O2 at baseline Mobility Status: Mobile / at baseline Total: 1 Action/Events Pt arrived via EMS with significant SOB. EMS gave one treatment en route. Upon arrival to ED pt received duonebx1 and albuterol x1 Pt has junky cough, fever and history of asthma (uses flovent BID and albuterol mdi as need) RT Jacque 01/03/19 documented in this encounter H&P Notes * Jayden Acevedo MD - 01/03/2019 1941 EST Medicine Admission History & Physical Service Date: 01/03/2019 Admit Date: 01/03/2019 13:52 Primary Care Provider: Aj Issa Chief Complaint: SOB, cough, fever FINA Boothe is a 58 y.o. female with a PMHx of pancytopenia, cirrhosis of the liver, mild persistent asthma and hypothyroidism who presents with 4-5 days of cough. Patient had felt prior to onsetof symptoms. The cough has been non- productive. In the past day, she has since developed headache, fever (tmax 103F), bilateral rib pain associated with a non-productive cough, shortness of breath, wheezing, congestion, chills and myalgias. The patient has advair and albuterol at home, but the albuterol was not providing much relief. She doesn't use tylenol for fevers as she was advised not to with her liver disease. Patient states her cirrhosis stems from fatty liver disease as she does not use alcohol and has never had Hepatitis. She also states she's had an EGD done in the past without evidence of varices. No history of bleeding, no bloody or dark tarry stools. She is aware of her pancytopenia and has been undergoing testing at [facility], however, they haven't been able to identify a cause as of yet. In the ED, she was febrile, tachycardic and normotensive. Labs notable for WBC 0.9, Hgb 8, Plt 25, lactate of 2.6, d-dimer 1097, and viral swab positive for Influenza A. An EKG revealed sinus tachycardia, CXR showed bibasilar scarring or atelectasis, chest CT showed no evidence of PE. She was treated with duonebs, tamiflu, and 2L IVF. Presently she endorses BRIGHT without visual changes, lightheadedness, bilateral rib pain associated with cough, wheezing, nausea, myalgias, BLE edema (chronic). She denies CP, SOB, abd pain, vomiting, skin ulcers. She has a diminished appetite and is tolerating sips of fluid. Review of Systems A complete 10 point [...] [place] and notes from [facility] patient misconstrued information to several [...] 2 Puffs as directed every 4 hours. ALPRAZolam (XANAX) 0.5 mg tablet Take 0.5 mg by mouth 3 times daily. amitriptyline (ELAVIL) 10 mg tablet Take 10 mg by mouth daily. ERGOCALCIFEROL, VITAMIN D2, (VITAMIN D ORAL) Take by mouth. ferrous gluconate (FERGON) 324 mg (38 mg iron) tablet Take 324 mg by mouth 3 times daily with meals. fluticasone (FLOVENT) 110 mcg/actuation inhaler Inhale 110 mcg as directed 2 times daily. LEVOTHYROXINE SODIUM (LEVOTHYROXINE ORAL) Take 25 mcg by mouth daily. Unknown dose Allergies Allergen Reactions ??? Morphine Anaphylaxis ??? Sulfa (Sulfonamide Antibiotics) Anaphylaxis ??? Tylenol [Acetaminophen] Other (See Comments) Contraindication with medical hx ??? Toradol [Ketorolac] Shortness Of Breath ??? Aspirin Other (See Comments) Contraindication with medical hx ??? Lyrica [Pregabalin] Anxiety Insomnia ??? Reglan [Metoclopramide Hcl] Rash Objective Vitals Temp: [38.1 ??C (100.6 ??F)] (), Heart Rate: [108 BPM-122 BPM] (), Pulse: [110] (), Resp: [12-27] (), BP: (123-130)/(76-81) (), SpO2: [97 %-100 %] (), O2 Flow Rate (L/min): 2 l/min Numeric Pain Level (Scale 1-10): 0 Weight: Weight : 88.5 kg (195 lb) Body mass index is 32.45 kg/m??. Physical Exam Gen: NAD, resting in bed, appears ill HEENT: NCAT, EOMI, [place], sclera non-icteric, mucous membranes are dry, no cervical adenopathy CV: tachycardic, regular rhythm, no RMG appreciated Lung: slight wheeze RLL, clear in all other lung godwin, no increased work of breathing Abd: obese, striae present, ecchymosis, non-tender, non-distended, +bs Ext: BLE mildly edematous, distal pulses 2+, cap refill <2 sec Skin: scattered petechia BLE, telangectasia anterior neck Neuro/Msk: moving all extremities equally, no weakness appreciated, no deficits appreciated Psych: pleasant, cooperative, AAOx3 Pressure Ulcer Present on admission? No Labs I have personally reviewed Recent Labs 01/03/19 1422 WBC 1.33* RBC 4.20 HGB 11.6 HCT 36.1 MCV 86 MCH 27.6 MCHC 32.1 PLT 32* Recent Labs 01/03/19 1422 NA 139 K 4.0 CL 104 CO2 27 BUN 10 CREATININE 0.76 CALCIUM 8.8 Imaging CXR: Bibasilar scarring or atelectasis, otherwise no significant Abnormality. CT PE: 1. ??No evidence of pulmonary embolism. 2. ??Stable findings of cirrhosis, splenomegaly and portal hypertension with a small amount of new free fluid within the perihepatic region. Assessment Tara Boothe is a 58 y.o. female with a PMHx significant for pancytopenia, cirrhosis of the liver, mild persistent asthma and hypothyroidism who presents with 4-5 days of cough found to be Influenza A positive on viral swab. Patient's pancytopenia has an unclear etiology. Patient is flu positive, however, given fever in the setting of pancytopenia, will cover with abx for now. Patient appears ill but is stable at this time. She requires admission for further support, IVF, monitoring and abx. Plan Fever in the setting of pancytopenia and Influenza A: - tylenol 650mg q6h prn - tamiflu 75mg BID for 5 days, may consider extending treatment given pancytopenia - cefepime 2g q12h for fever in setting of pancytopenia - Bcx pending Lactic acidosis: 2.6-->3.5, likely 2/2 infection and dehydration - s/p 2L IVF in ED - mIVF 125cc/hr LR - recheck lactate in AM Mild persistent asthma: - duonebs q4h prn - SOFT MUD MOLDER albuterol Cirrhosis (QUIROZ): LFT's stable, INR 1.3 - INR tomorrow AM - bili tomorrow AM Hypothyroidism: - SOFT MUD MOLDER levothyroxine 25mg at night Chronic pain: - amitriptyline 10mg at night - lidocaine patch FEN/GI: - regular diet - mIVF as above - SOFT MUD MOLDER Vit D 1,000U at night - IV compazine for nausea - lytes, bun, cr tomorrow AM VTE Prophylaxis Contraindicated for thrombocytopenia Code: Full - discussed with patient Discharge Plan Uncertain at this time Consults None Admission Status Inpatient. Anticipated duration of hospitalization is greater than two midnights due to pancytopenia, fever, influenza infection. Discussed with Dr. Katiana Acevedo MD 01/03/2019 19:42 Cosigned by Quique Page MD at 01/04/2019 2:55 EST Associated attestation - Quique Page MD - 01/04/2019 0255 EST Attending Attestation Date of service: 01/03/2019 I have interviewed and examined the patient. I personally reviewed laboratories studies, radiographic studies, ECG, and prior records. I discussed the case with: Dr. Monique (ED attending physician), Dr. Acevedo (medicine resident). 58yoF hx of presumed NAFLD cirrhosis, chronic pancytopenia who presentswith neutropenic fever found to be influenza A+. Given persistent teachycardia and lactic acidosis following 2L IVF plan for abx in setting of neutropenia which can be discontinued promptly pending negative cultures. Otherwise plan for supportive therapies and oseltamivir. I agree with the findings and plan of care as documented in the note above. Quique Page MD Internal Medicine Hospitalist 01/04/2019 2:48 documented in this encounter ED Notes * Paola Bella RN - 01/05/2019 1314 EST Patient ambulatory to exit. * Paola Bella RN - 01/05/2019 1305 EST Discharge instructions reviewed with patient, all questions and needs addressed. Patient given notefor work. * Paola Bella RN - 01/05/2019 1132 EST Blood drawn via saline lock per protocol, red and purple tube(s) sent to lab per order. * Paola Bella RN - 01/05/2019 0920 EST 0837:Patient given orange juice and maxi pad. Patient takes inhaler with no issue, patient denies any needs at this time. 0920: Patient eating breakfast, no needs at this time. * Paola Bella RN - 01/05/2019 0757 EST Resumed care of patient, patient here with flu like symptoms. Patient currently sleeping, Will continue to monitor. * Gary Ramirez RN - 01/05/2019 0054 EST Assisted pt to restroom and reminded pt of need for mask when ambulating out of room, pt verbalizedunderstanding. Provided pt with further drink per request, pt denies any other needs or complaints at this time. Frequent nurse checks in place. * Gary Ramirez RN - 01/04/2019 2057 EST Contacted pharmacy regarding pts night medication, provided pt with orange juice per request. Pt denies any other needs or complaints at this time. Will medicate when medications are available. * Gary Ramirez RN - 01/04/2019 1916 EST Assumed care of pt, pt asleep in bed with no acute distress noted. Respirations even and unlabored with equal chest rise and fall. Frequent nurse checks in place. * Juliet Meier RN - 01/04/2019 1802 EST Up to the bathroom. Forgot to wear mask. Reports she is having loose stools, thinks it may be due to apple juice. Stable VS. Breathing starting to feel tighter. Will ask RT for neb. * Juliet Meier RN - 01/04/2019 1718 EST Patient sleeping. * Juliet Meier RN - 01/04/2019 1452 EST Patient able to eat half a turkey sandwich. Requested nausea medication in the hopes of keeping [facility] down. Given compazine. No other needs. * Gary Ramirez RN - 01/04/2019 0725 EST Report given to KENN Escobar * Gary Ramirez RN - 01/04/2019 0639 EST Pt asleep in bed with no acute distress noted, respirations even and unlabored with equal chest rise and fall. Vital signs stable. * Laurent Qureshi RN - 01/04/2019 0235 EST Patient is resting quietly; sleeping, RR and WNL. NAD. * Dom Styles RN - 01/04/2019 0030 EST Pt transferred to room 38 with hospital bed. Informed of boarding status. Denies any needs. Care and report given to Garcia HAWK. * Dom Styles RN - 01/03/2019 2155 EST Blood drawn via saline lock per protocol, purple, cultures and pink tube(s) sent to lab per order. * Emigdio Davies - 01/03/2019 2004 EST Emigdio Owusu, notified Dr. Monique of WBC 0.90 on 01/03/2019 at 20:04. * Dom Styles RN - 01/03/2019 1906 EST Elevated repeat lactic. Plan to admit. * Emigdio Davies - 01/03/2019 1901 EST Emigdio Owusu, notified Dr. Monique of Lactic 3.5 on 01/03/2019 at 19:01. * Harry Verma RN - 01/03/2019 1837 EST Blood drawn via saline lock per protocol, green tube(s) sent to lab per order. * Dom Styles RN - 01/03/2019 1746 EST Ambulated in hallway with normal sats and HR. Pt reports mild dyspnea with exertion. Fluids infusing. Plan to redraw lactic. aware. Will continue to monitor. * Dom Styles RN - 01/03/2019 1730 EST Pt back from CT. C/O no change in pain that fentanyl didn't work for me. aware. * Mana Monique MD - 01/03/2019 1610 EST I, Tracee Laure, am scribing for Mana Monique MD while he/she is personally performing the service. Tracee Kelsey 01/03/2019 16:10 Tara Boothe is a 58 y.o. female who presents to the ED for cough and shortness of breath. She states that the cough started 4 days ago, gradually worsening and causing pains in her chest wall. Yesterday, she became short of breath, and her symptoms were not alleviated with her inhaler. The patient measured a fever of 102.6 at home. Care and work-up prior to sign out includes labs significant for elevated D- dimer at 1097. I assumed care of patient from Dr. Jordan Arizmendi with CT chest and influenza swab results pending. After I assumed care the patient's Flu swab came back positive. 1730 I discussed my plan to hydrate, repeat blood work, and road test to check O2 levels. 1908 The patient has a climbing lactate that is now 3.9. 1926 The case was discussed with the hospitalist, who agrees that the patient is appropriate for admission. The patient is admitted to medicine under the care of Dr. Page. This documentation is recorded by Tracee Kelsey acting as Scribe under the direction and presence of Mana Monique MD. Mana Monique MD: I personally performed the services recorded by the scribe in my presence. I confirm the scribe's documentation has been reviewed by me to accurately and completely record my work, treatment, procedures, and medical decision making. * Emigdio Davies - 01/03/2019 1512 EST I, Emigdio Davies, notified Dr. Arizmendi of Lactic 2.6 on 01/03/2019 at 15:12. * Wale Cardoza - 01/03/2019 1443 EST Blood drawn via saline lock per protocol, green tube(s) sent to lab per order. * Jordan Arizmendi MD - 01/03/2019 1422 EST This patient received an evaluation and medical screening exam for emergent medical conditions at the [facility] on 01/03/2019 Scribe attestation: This documentation is recorded by Cris Almeida acting as Scribe under the direction and presence of Jordan Arizmendi MD. Jordan Arizmendi MD: I personally performed the services recorded by the scribe in my presence. I confirm the scribe's documentation has been reviewed by me to accurately and completely record my work, treatment, procedures, and medical decision making. FINA Boothe is a 58 y.o. female with PMH including asthma, pancytopenia, hypersplenism disorder, splenic vein thrombosis, liver cirrhosis, hypothyroidism, and obesity who presents to the ED for acough and shortness of breath. She states the cough started 4 days ago. It progressed and started ca using her pains in her chest wall. Then yesterday she became short of breath and her breathing felttight. She used her inhalers she has at home for asthma yesterday in to ay with little relief. She decided to come in because the cough, shortness of breath, and chest pain were only getting worse an today she measured a fever of 102.6 at home. She has not been able to keep any food or liquids down since yesterday. She denies having a history of clots. History was provided by: the patient ad past medical records. Patient's pertinent PMH, FH, SH were reviewed and updated PRN. ROS My standard 10 point review of systems for this complaint is otherwise negative. Physical Exam Vital Signs Vitals Reassessment?: Yes Temp: 38.1 ??C (100.6 ??F) Temp src: Oral Pulse: (!) 110 Heart Rate: 110 BPM Resp: 19 SpO2: 100 % BP: 123/81 BP MAP: 95 mm Hg BP Device: BP Machine Patient Position: Semi fowlers BP Cuff Location: Left arm O2 Device: Nasal cannula Nursing notes and vital signs were reviewed. Constitutional: Well appearing in no acute distress HEENT: NC/AT, Pupils equal and reactive to light, no scleral icterus Moist oral mucosa without apparent lesions Neck: Full ROM, no cervical LAD Heart: RRR without MRG Lungs: Expiratory wheezes, prolonged I to E ratio. No respiratory distress. Abdomen: Soft NT/ND, Skin: No rash on exposed skin Extremities: No deformities, warm and well perfused. Neuro: Awake, alert, oriented. Speech is fluent. Movements show normal coordination Psych: No agitation or overt thought disorder Differential Diagnosis The differential diagnosis for this patient includes but is not limited to: pneumonia, asthma flair, viral upper respiratory tract infection. PE is unlikely given lack of risk factors and no peripheral signs of DVT. Patient also has a mild fever. Data Interpretation An EKG was obtained an independently interpreted: sinus tachycardia. Normal axis. Normal intervals.No evidence of ischemia. Imaging obtained was reviewed and independently interpreted: Patient had chest X-ray, which was significant for bibasilar scarring or atelectasis, otherwise no significant abnormality. Laboratory results independently reviewed, significant for: lactate of 2.6, elevated D-dimer 1097, Procedures Procedures Assessment and Plan: This is a 58 y.o. female who presents to the ED with cough and shortness of breath. Her chest x-raydoes not show an acute infiltrate. She is persistently quite tachycardic despite getting some fluids. This raises my concern for shortness of breath due to pulmonary embolism, especially since her lungs are generally clear on reexamination. D-dimer was markedly positive and she will undergo a pulmonary embolism CT scan. She will be reassessed after the scan by Dr. Monique. ED course A medical screening exam was performed. Patient was treated with an AccuNeb and DuoNeb breathing treatments for shortness of breath. 15:45 Patient was reassessed and was still tachycardic and tachypneic. She does not have a history of severe asthma and has never felt short of breath like this before and has no recent clear-cut sick contacts. I will send a D-dimer to rule out PE. Patient received a second AccuNeb breathing treatment. D-dimer was elevated at 1097. CT chest PE protocol was ordered. Patient was signed out to Dr. Monique with CT chest PE protocol, influenza swab results, and disposition, likely admission, pending. Impression Final diagnoses: None Disposition Disposition decisions were made weighing risks and benefits of hospitalization vs. outpatient treatment, the risk for further decompensation, and the patient???s wishes. Signed out pending viral swab, chest PE protocol, and disposition The patient's pain was managed to an adequate level weighing risk vs. benefit of further medications. Upon my departure from the Emergency Department at time of sign out, the patient's pain was 0 on a zero to ten scale. Any further pain treatment will be at the discretion of the provider following up with the patient based on their clinical assessment. Condition at departure from the Emergency Department: Stable documented in this encounter Miscellaneous Notes * Plan of Care - Mere Michelle - 01/04/2019 0754 EST Problem: DROPLET PRECAUTIONS Goal: Prevent Transmission Of Infection Patient has influenza A. Please maintain droplet precautions for duration of illness. documented in this encounter Plan of Treatment Upcoming Encounters Date Type Department Care Team (Late st Contact Info) Description 01/04/2025 13:00 EST Office Visit [facility] Ophthalmology - [facility] [address], [place] [id number] Gagandeep Rome MD [address] [facility], [address] [place] [phone] 02/11/2025 13:30 EDT Telemedicine [facility] Hematology & Oncology - [facility] [address], [place] [id number] Dana Padilla MD [address] [facility], [address] [place] [address] Scheduled Referrals Name Type Priority Associated Diagnoses Orde r Schedule AMB CONS/FOLLOW UP PRIMARY CARE PHYSICIAN Outpatient Referral Routine Influenza Ordered: 01/05/2019 documented as of this encounter Procedures Procedure Name Priority Date/Time Associated Diagnosis Comments ECG REPORT - SCANNED 01/05/2019 14:47 EST COMPLETE BLOOD COUNT AND DIFFERENTIAL Routine 01/05/2019 11:22 EST BUN Routine 01/05/2019 11:22 EST CREATININE Routine 01/05/2019 11:22 EST ELECTROLYTES Routine 01/05/2019 11:22 EST ECG REPORT - SCANNED 01/04/2019 11:29 EST URINE CULTURE IF POSITIVE Routine 01/04/2019 11:28 EST URINE CHEMICAL (DIP) & SEDIMENT (MICRO) WITHOUT REFLEX TO CULTURE STAT 01/04/2019 11:28 EST DRY POWDERED OR METERED DOSE INHALER Routine 01/04/2019 10:33 EST LACTIC ACID Routine 01/04/2019 5:48 EST PROTIME Routine 01/04/2019 5:42 EST BILIRUBIN, TOTAL Routine 01/04/2019 5:42 EST TYPE AND SCREEN STAT 01/03/2019 22:10 EST HGB STAT 01/03/2019 21:49 EST BACTERIAL CULTURE, BLOOD STAT 01/03/2019 21:11 EST BACTERIAL CULTURE, BLOOD STAT 01/03/2019 21:11 EST FARNAZ DIFF COMMENT Routine 01/03/2019 19: 46 EST COMPLETE BLOOD COUNT AND DIFFERENTIAL STAT 01/03/2019 19:46 EST LACTIC ACID STAT 01/03/2019 18:[address] CHEST (PE) PROTOCOL W CONTRAST STAT 01/03/2019 17:24 EST INFLUENZA, RSV PCR STAT 01/03/2019 16 :44 EST EKG 12-LEAD STAT 01/03/2019 16:11 EST ED/URGENT CARE ADD-ON STAT 01/03/2019 15:45 EST CHEST PA AND LATERAL STAT 01/03/2019 14:53 EST LACTIC ACID STAT 01/03/2019 14:38 EST EKG 12-LEAD STAT 01/03/2019 14:34 EST ED/URGENT CARE ADD-ON STAT 01/03/2019 14:30 EST HOLD SST STAT 01/03/2019 14:22 EST HOLD PURPLE TOP STAT 01/03/2019 14:22 EST HOLD GREEN TOP STAT 01/03/2019 14:22 EST HOLD BLUE TOP STAT 01/03/2019 14:22 EST D-DIMER Routine 01/03/2019 14:22 EST COMPLETE BLOOD COUNT Routine 01/03/2019 14:22 EST BASIC METABOLIC PANEL (BMP) Routine 01/03/2019 14:22 EST NEBULIZER TX INTERMITTENT Routine 01/03/2019 14:14 EST NEBULIZER TX INTERMITTENT Routine 01/03/2019 14:14 EST documented in this encounter Results * ECG REPORT - SCANNED (01/05/2019 14:47 EST) 01/05/2019 14:4 7 EST us Scan 2 Head Loft Worker PROCEDURE/MINOR SURGICAL OR DERABLES Final Result * ELECTROLYTES (01/05/2019 11:22 EST) Sodium 138 136 - 145 mEq/L 01/05/2019 12:03 [facility] Potassium 4.1 3.5 - 5.0 mEq/L 01/05/2019 12:03 [facility] Chloride 102 96 - 110 mEq/L 01/05/2019 12:03 [facility] CO2 30 22 - 32 mEq/L 01/05/2019 12:03 [facility] Blood specimen (specimen) BLOOD SPECIMEN / Unknown 01/05/2019 11:22 EST 01/05/2019 11:38 EST Kiya Jenkins DO CHEMISTRY & BLOOD GAS ORDERAB LES Final Result [facility] [address] [place] [address] * BUN (01/05/2019 11:22 EST) BUN 11 10 - 26 mg/dl 01/05/2019 12:03 [facility] Blood specimen (specimen) BLOOD SPECIMEN / Unknown 01/05/2019 11:22 EST 01/05/2019 11:38 EST [facility] DO CHEMISTRY & BLOOD GAS ORDERAB LES Final Result Performing Organization Address [facility]/ZIP Co de Phone Number [facility] [address] [place] [address] * CREATININE (01/05/2019 11:22 EST) Creatinine 0.62 0.52 - 1.04 mg/dl 01/05/2019 12:03 [facility] GFR, Calculated 100 >60 ml/min/1.7 3m2 01/05/2019 12:03 [facility] Comment: eGFR calculated using CKD-EPI equation for non Americans. Multiply eGFR by 1.16 for Americans. Blood specimen (specimen) BLOOD SPECIMEN / Unknown 01/05/2019 11:22 EST 01/05/2019 11:38 EST Kiya [facility] CHEMISTRY & BLOOD GAS ORDERAB LES Final Result Performing Organization Address [facility] [[email or web address]] Co de Phone Number [facility] [address] [place] [address] * (ABNORMAL) COMPLETE BLOOD COUNT AND DIFFERENTIAL (01/05/2019 11:22 EST) WBC 1.12(L) 4.0 - 12.4 K/cmm 01/05/2019 12:10 [facility] RBC 3.65(L) 3.86 - 5.04 M/cmm 01/05/2019 12:10 [facility] Hemoglobin 10.1(L) 11.6 - 15.2 gm/dl 01/05/2019 12:10 [facility] HCT 31.6(L) 34.9 - 44.4 % 01/05/2019 12:10 [facility] MCV 87 81 - 98 fl 01/05/2019 12:10 [facility] MCH 27.7 26.7 - 33.3 pg 01/05/2019 12:10 [facility] MCHC 32.0(L) 32.1 - 35.9 gm/dl 01/05/2019 12:10 [facility] RDW-CV 15.3(H) <14.7 % 01/05/2019 12:10 [facility] RDW-SD 49.3 <50.4 fl 01/05/2019 12:10 [facility] PLT 32(L) 141 - 377 K/cmm 01/05/2019 12:10 [facility] MPV 10.1 9.5 - 12.7 fl 01/05/2019 12:10 [facility] Neutrophils 68.7 % 01/05/2019 13:03 [facility] % Bands 4.5 % 01/05/2019 13:03 [facility] Lymphocytes 20.5 % 01/05/2019 13:03 [facility] Monocytes 3.6 % 01/05/2019 13:03 [facility] Eosinophils 2.7 % 01/05/2019 13:03 [facility] ABS Neutrophils 0.77(L) 2.20 - 8.85 K/cmm 01/05/2019 13:03 [facility] ABS Bands 0.05 K/cmm 01/05/2019 13:03 [facility] ABS Lymphs 0.23(L) 1.09 - 3.30 K/cmm 01/05/2019 13:03 [facility] ABS Monocytes 0.04(L) 0.1 - 0.8 K/cmm 01/05/2019 13:03 [facility] ABS Eosinophils 0.03 0.03 - 0.61 K/cmm 01/05/2019 13:03 [facility] Type of Diff: Manual 01/05/2019 13:03 [facility] Blood specimen (specimen) BLOOD SPECIMEN / Unknown 01/05/2019 11:22 EST 01/05/2019 11:38 EST us Kiya Jenkins DO PACKAGES & DNA PROBE ORDERABL ES Final Result [facility] [address] [place] [address] * ECG REPORT - SCANNED (01/04/2019 11:29 EST) 01/04/2019 11:2 9 EST us Scan 2 Head Loft Worker PROCEDURE/MINOR SURGICAL OR DERABLES Final Result * URINE CULTURE IF UA POSITIVE - NON POCT URINALYSIS ONLY (01/04/2019 11:28 EST) Culture if Indicated Culture not indicated by urinalysis results. 01/04/2019 12:02 [facility] Urine specimen (specimen) TOPOGRAPHY UNKNOWN / Unknown 01/04/2019 11:28 EST 01/04/2019 11:28 EST us Quique Page MD MICROBIOLOGY - GENERAL ORD ERABLES Final Result [facility] [address] [place] [address] * (ABNORMAL) UA, CHEMICAL AND SEDIMENT ANALYSIS (DIPSTICK AND MICROSCOPIC) (01/04/2019 11:28 EST) Color, UA Yellow 01/04/2019 12:02 [facility] Clarity, UA Clear 01/04/2019 12:02 [facility] Glucose, UA Neg Neg 01/04/2019 12:02 [facility] Bilirubin, UA Neg Neg 01/04/2019 12:02 [facility] Ketones, UA Neg Neg 01/04/2019 12:02 [facility] Refractometer SG,Urine 1.022 1.001 - 1.035 01/04/2019 12:02 [facility] Blood, UA 2+(A) Neg 01/04/2019 12:02 [facility] pH, UA 6.5 4.6 - 8.0 01/04/2019 12:02 [facility] Protein, UA Neg Neg 01/04/2019 12:02 [facility] Urobilinogen, UA Normal Normal E.U./dl 01/04/2019 12:02 [facility] Nitrite, UA Neg Neg 01/04/2019 12:02 [facility] Leuk Esterase Neg Neg 01/04/2019 12:02 [facility] UA Method Used 01/03/2019 19:31 [facility] Comment: Testing performed using Ohmx [id number]. Urine RBC Count Automated 11 to 50(A) 0 to 2 /HPF 01/04/2019 12:02 [facility] Urine WBC Count Automated 0 to 3 0 to 3 /HPF 01/04/2019 12:02 [facility] Urine Squamous Epithelial Cell Count, Automated None seen None seen /LPF 01/04/2019 12:02 [facility] Urine Hyaline Casts, Automated < or = 10 < or = 10 /LPF 01/04/2019 12:02 [facility] Urine Bacteria Count, Automated None seen None seen 01/04/2019 12:02 [facility] UA Comment Sediment results 01/04/2019 12:02 [facility] Comment: are unreliable on urines unrefrig >2hrs or refrig >8hrs. Urine specimen (specimen) URINE / Unknown 01/04/2019 11:28 EST 01/04/2019 11:28 EST us Quique Page MD URINALYSIS ORDERABLES Pricila l Result Performing Organization Address City/[facility] [[email or web address]] Co de Phone Number [facility] [address] [place] [address] * LACTIC ACID (01/04/2019 5:48 EST) Lactic Acid 1.2 <2.0 mmol/L 01/04/2019 6:19 [facility] Blood specimen (specimen) BLOOD SPECIMEN / Unknown 01/04/2019 5:48 EST 01/04/2019 6:04 EST Jayden Acevedo MD CHEMISTRY & BLOOD GAS ORDERABLE S Final Result Performing Organization Address [facility] [[email or web address]] Co de Phone Number [facility] [address] [place] [address] * (ABNORMAL) PROTIME (01/04/2019 5:42 EST) Pro Time 17.8(H) 10.3 - 13.4 secs 01/04/2019 6:26 EST [facility] I.N.R. 1.5(H) 0.9 - 1.1 Ratio 01/04/2019 6:26 EST [facility] Comment: Moderate Intensity Coumadin INR = 2.0-3.0 Adjustments in anticoagulant therapy dose should be based upon the INR and NOT the Pro Time. Blood specimen (specimen) BLOOD SPECIMEN / Unknown 01/04/2019 5:42 EST 01/04/2019 6:04 EST Jayden Acevedo MD HEMATOLOGY & PF4 ORDERABLES Fin al Result Performing Organization Address [facility] [[email or web address]] Co de Phone Number [facility] [address] [place] [address] * BILIRUBIN, TOTAL (01/04/2019 5:42 EST) Bilirubin, Total 0.7 <1.4 mg/dl 01/04/2019 6:21 EST [facility] Blood specimen (specimen) BLOOD SPECIMEN / Unknown 01/04/2019 5:42 EST 01/04/2019 6:04 EST Jayden Acevedo MD CHEMISTRY & BLOOD GAS ORDERABLE S Final Result Performing Organization Address [facility] [[email or web address]] Co de Phone Number [facility] [address] [place] [address] * TYPE AND SCREEN (01/03/2019 22:10 EST) ABO O [facility] Rh Factor Positive [facility] Antibody Screen Negative [facility] Comment: Patient is electronic crossmatch eligible. Units available upon request for transfusion. Specimen Expires: 01/06/2019 @ 23:59 [facility] Blood specimen (specimen) 01/03/2019 22:10 EST Jayden Acevedo MD BLOOD BANK TESTS Final Result Performing Organization Address [facility]/ZIP Co de Phone Number [facility] [address] [place] [address] * (ABNORMAL) HGB (01/03/2019 21:49 EST) Hemoglobin 9.4(L) 11.6 - 15.2 gm/dl 01/03/2019 22:23 EST [facility] Blood specimen (specimen) BLOOD SPECIMEN / Unknown 01/03/2019 21:49 EST 01/03/2019 22:05 EST us Jayden Acevedo MD HEMATOLOGY & PF4 ORDERABLES Fin al Result Performing Organization Address [facility] [[email or web address]] Co de Phone Number [facility] [address] [place] [address] * BACTERIAL CULTURE, BLOOD (01/03/2019 21:11 EST) Result No growth 01/08/2019 7:26 EST [facility] Blood specimen (specimen) BLOOD SPECIMEN / Unknown 01/03/2019 21:11 EST 01/03/2019 21:36 EST Comment:Right~Antecubital~IV us Quique Page MD MICROBIOLOGY - GENERAL ORD ERABLES Final Result Performing Organization Address [facility] [[email or web address]] Co de Phone Number [facility] [address] [place] [address] * BACTERIAL CULTURE, BLOOD (01/03/2019 21:11 EST) Result No growth 01/08/2019 7:26 EST [facility] Blood specimen (specimen) BLOOD SPECIMEN / Unknown 01/03/2019 21:11 EST 01/03/2019 21:37 EST Comment:Right~Antecubital~IV us Quique Page MD MICROBIOLOGY - GENERAL ORD ERABLES Final Result Performing Organization Address City/[facility]/ZIP Co de Phone Number [facility] [address] [place] [address] * FARNAZ DIFF COMMENT (01/03/2019 19:46 EST) Differential Comment VACUOLES PRESENT 01/03/2019 20:56 [facility] BLOOD SPECIMEN / Unknown 01/03/2019 19:46 EST 01/03/2019 19:52 EST us Mana Monique MD HEMATOLOGY & PF4 ORDERABLES Pricila suri Result [facility] [address] [place] [address] * (ABNORMAL) COMPLETE BLOOD COUNT AND DIFFERENTIAL (01/03/2019 19:46 EST) WBC 0.90(LL) 4.0 - 12.4 K/cmm 01/03/2019 20:02 [facility] RBC 2.92(L) 3.86 - 5.04 M/cmm 01/03/2019 20:02 [facility] Hemoglobin 8.0(L) 11.6 - 15.2 gm/dl 01/03/2019 20:02 [facility] HCT 25.0(L) 34.9 - 44.4 % 01/03/2019 20:02 [facility] MCV 86 81 - 98 fl 01/03/2019 20:02 [facility] MCH 27.4 26.7 - 33.3 pg 01/03/2019 20:02 [facility] MCHC 32.0(L) 32.1 - 35.9 gm/dl 01/03/2019 20:02 [facility] [facility] RDW-CV 15.4(H) <14.7 % 01/03/2019 20:02 [facility] RDW-SD 48.8 <50.4 fl 01/03/2019 20:02 [facility] PLT 25(L) 141 - 377 K/cmm 01/03/2019 20:02 [facility] MPV 10.5 9.5 - 12.7 fl 01/03/2019 20:02 [facility] Neutrophils 87.4 % 01/03/2019 20:43 [facility] Lymphocytes 9.0 % 01/03/2019 20:43 [facility] Monocytes 2.7 % 01/03/2019 20:43 [facility] Basophils 0.9 % 01/03/2019 20:43 [facility] ABS Neutrophils 0.79(L) 2.20 - 8.85 K/cmm 01/03/2019 20:43 [facility] ABS Lymphs 0.08(L) 1.09 - 3.30 K/cmm 01/03/2019 20:43 [facility] ABS Monocytes 0.02(L) 0.1 - 0.8 K/cmm 01/03/2019 20:43 [facility] ABS Basophils 0.01 0.01 - 0.11 K/cmm 01/03/2019 20:43 [facility] Type of Diff: Manual 01/03/2019 20:43 [facility] Blood specimen (specimen) BLOOD SPECIMEN / Unknown 01/03/2019 19:46 EST 01/03/2019 19:52 EST us Mana Monique MD PACKAGES & DNA PROBE ORDERABLES Final Result Performing Organization Address City/[facility]/ZIP Co de Phone Number [facility] [address] [place] [address] * (ABNORMAL) LACTIC ACID (01/03/2019 18:32 EST) Lactic Acid 3.5(HH) <2.0 mmol/L 01/03/2019 18:57 EST [facility] Blood specimen (specimen) BLOOD SPECIMEN / Unknown 01/03/2019 18:32 EST 01/03/2019 18:37 EST us Mana Monique MD CHEMISTRY & BLOOD GAS ORDERABLES Final Result Performing Organization Address [facility] [[email or web address]] Co de Phone Number [facility] [address] [place] [address] * CT CHEST (PE) PROTOCOL W CONTRAST (01/03/2019 17:24 EST) Anatomical Region Laterality Modality Other 01/03/2019 17:2 4 EST 01/03/2019 19:07 EST Narrative 01/03/2019 19:07 EST CTA CHEST W CONTRAST (PE) PROTOCOL ??01/03/2019 5:24 PM Clinical History/Comments: SOB, CP Technique: A contrast-enhanced helical CT acquisition of [...] workstation, as necessary, prior to interpretation. Exam Description: CTA of the chest. Comparison: Chest x-ray 2 hours prior, CT PE 07/17/2015. Findings: Opacification of the pulmonary vasculature is adequate. Streak artifact from contrast bolus in the SVC as well as motion artifact especially in the right upper lobe limits sensitivity of detection of distal right upper lobe thrombi. No acute or chronic emboli are seen within the pulmonary arterial vasculature. Lower neck: No abnormalities. Chest wall soft tissues: No abnormalities. Mediastinum and leobardo: Mildly enlarged lymph nodes are present in the paratracheal region, unchanged or slightly decreased in size from prior. Heart and mediastinal vasculature: ??No abnormalities. Large airways: ??No abnormalities. Lungs: ??Bandlike atelectasis is present in both lung bases. An additional linear region of atelectasis/scarring is noted within the medial right upper lobe (#88). There is unchanged scarring in the lingula. Pleura: No abnormalities. Upper abdomen (limited to upper abdomen, not optimized for abdominal imaging): Splenomegaly and cirrhosis are unchanged from prior. The splenic vein is again noted to be enlarged. There is a small amount of perihepatic free fluid the upper abdomen. Surgical clips and mass within the anterior abdominal wall are partially imaged to the right of midline. Bones: ??No significant abnormalities. Impression: 1. ??No evidence of pulmonary embolism. 2. ??Stable findings of cirrhosis, splenomegaly and portal hypertension with a small amount of new free fluid within the perihepatic region. This is an on-call preliminary report by resident Dr. Erica Fowler which was reviewed and discussed with senior radiology on-call resident, Dr. Price. I have personally reviewed the images and the above interpretation and agree with the findings. Procedure Note Lazaro Cook MD - 01/03/2019 CTA CHEST W CONTRAST (PE) PROTOCOL 01/03/2019 5:24 PM Clinical History/Comments: SOB, CP Technique: A contrast-enhanced helical CT acquisition of [...] workstation, as necessary, prior to interpretation. Exam Description: CTA of the chest. Comparison: Chest x-ray 2 hours prior, CT PE 07/17/2015. Findings: Opacification of the pulmonary vasculature is adequate. Streak artifact from contrast bolus in the SVC as well as motion artifact especially in the right upper lobe limits sensitivity of detection of distal right upper lobe thrombi. No acute or chronic emboli are seen within the pulmonary arterial vasculature. Lower neck: No abnormalities. Chest wall soft tissues: No abnormalities. Mediastinum and leobardo: Mildly enlarged lymph nodes are present in the paratracheal region, unchanged or slightly decreased in size from prior. Heart and mediastinal vasculature: No abnormalities. Large airways: No abnormalities. Lungs: Bandlike atelectasis is present in both lung bases. An additional linear region of atelectasis/scarring is noted within the medial right upper lobe (#88). There is unchanged scarring in the lingula. Pleura: No abnormalities. Upper abdomen (limited to upper abdomen, not optimized for abdominal imaging): Splenomegaly and cirrhosis are unchanged from prior. The splenic vein is again noted to be enlarged. There is a small amount of perihepatic free fluid the upper abdomen. Surgical clips and mass within the anterior abdominal wall are partially imaged to the right of midline. Bones: No significant abnormalities. Impression: 1. No evidence of pulmonary embolism. 2. Stable findings of cirrhosis, splenomegaly and portal hypertension with a small amount of new free fluid within the perihepatic region. This is an on-call preliminary report by resident Dr. Erica Fowler which was reviewed and discussed with senior radiology on-call resident, Dr. Price. I have personally reviewed the images and the above interpretation and agree with the findings. us Mana Monique MD IMG CT ORDERABLES Final Result * (ABNORMAL) ED, URGENT CARE INFLUENZA, RSV PCR (01/03/2019 16:44 EST) Flu A RNA Result POSITIVE(AA) 01/03/2019 17:25 EST [facility] Flu B RNA Result Negative 01/03/2019 17:25 EST [facility] RSV RNA Result Negative 01/03/2019 17:25 EST [facility] Specimen of unknown material (specimen) TOPOGRAPHY UNKNOWN / Unknown 01/03/2019 16:44 EST 01/03/2019 16:50 EST us Mana Monique MD MICROBIOLOGY - GENERAL ORDERABLE S Final Result [facility] [address] [place] [address] * EKG 12-LEAD (01/03/2019 16:11 EST) 01/03/2019 16:1 1 EST Narrative [facility] E[facility] - 01/04/2019 11:26 EST ?[facility] ? Test Date: ?2019-01-03 Pat Name: ? PHYLISS BOOTHE ?Department: ?? ED ? Room: ? AC12 Gender: ? Female ? Final Assembly And Packing Supervisor: ?? [phone] : ?1960 ? Requested By: XOCHILT Franco Order Number: [id number] ? Reading MD: ?? DESI VALDIVIA MD ? Measurements Intervals ?Garner ? Rate: ? 121 ?P: ?57 IN: ? 141 ?QRS: ?56 QRSD: ? 90 ? T: ?-31 QT: ? 328 ? QTc: ?466 ? Interpretive Statements SINUS TACHYCARDIA ST DEVIATION AND MODERATE T-WAVE ABNORMALITY, CONSIDER INFERIOR ISCHEMIA I reviewed the tracing and have either agreed or edited the findings in this report. Electronically Signed On 01-04-2019 11:26:22 EST by DESI VALDIVIA MD. Procedure Note Desi Valdivia MD - 01/04/2019 [facility] Test Date: 2019-01-03 Pat Name: TARA BOOTHE Department: ED Room: [facility] Gender: Female Final Assembly And Packing Supervisor: [id number] : 1960 Requested By: XOCHILT Franco Order Number: [id number] Reading MD: DESI VALDIVIA MD Measurements Intervals Garner Rate: 121 P: 57 IN: 141 QRS: 56 QRSD: 90 T: -31 QT: 328 QTc: 466 Interpretive Statements SINUS TACHYCARDIA ST DEVIATION AND MODERATE T-WAVE ABNORMALITY, CONSIDER INFERIOR ISCHEMIA I reviewed the tracing and have either agreed or edited the findings inthis report. Electronically Signed On 01-04-2019 11:26:22 EST by DESI NEAL. us Jordan Arizmendi MD CARDIAC ECG ORDERABL ES Final Result [facility] * ED/URGENT CARE ADD-ON (01/03/2019 15:45 EST) Tests to be added (Note) 01/03/2019 16:36 EST [facility] Comment:CALLED ED @ 1555 12/22 02/06 CONFIRMED ITS DDIMER ADDON Number for problems [id number] (ED) 01/03/2019 15:44 EST [facility] TOPOGRAPHY UNKNOWN / Unknown 01/03/2019 15:45 EST 01/03/2019 16:01 EST us Jordan Arizmendi MD HEMATOLOGY & PF4 ORD ERABLES Final Result [facility] [address] [place] [address] * CHEST PA AND LATERAL (01/03/2019 14:53 EST) Anatomical Region Laterality Modality Other 01/03/2019 14:5 3 EST 01/03/2019 15:49 EST Narrative 01/03/2019 15:49 EST CHEST 2 VIEWS ??01/03/2019 2:53 PM Clinical History/Comments: Shortness of breath Comparison: Multiple prior chest x-rays, most recently 07/11/2018. Chest CT 07/17/2015. Technique: Frontal and lateral views of the chest were performed. Findings: Soft tissues: Normal. Bones: There are degenerative changes in the glenohumeral and acromioclavicular joints. There is multilevel degenerative disease. Cardiac and mediastinal contours: Normal. Lungs: The lungs are clear aside from platelike atelectasis or scarring in the left base the pulmonary vasculature is clear. ?? Pleura/diaphragms: There is no pneumothorax or effusion. Impression: Bibasilar scarring or atelectasis, otherwise no significant abnormality. I have personally reviewed the images and the above interpretation and agree with the findings. Procedure Note Colt Burciaga MD - 01/03/2019 CHEST 2 VIEWS 01/03/2019 2:53 PM Clinical History/Comments: Shortness of breath Comparison: Multiple prior chest x-rays, most recently 07/11/2018. Chest CT 07/17/2015. Technique: Frontal and lateral views of the chest were performed. Findings: Soft tissues: Normal. Bones: There are degenerative changes in the glenohumeral and acromioclavicular joints. There is multilevel degenerative disease. Cardiac and mediastinal contours: Normal. Lungs: The lungs are clear aside from platelike atelectasis or scarring in the left base the pulmonary vasculature is clear. Pleura/diaphragms: There is no pneumothorax or effusion. Impression: Bibasilar scarring or atelectasis, otherwise no significant abnormality. I have personally reviewed the images and the above interpretation and agree with the findings. us Jordan Arizmendi MD [facility] DIAGNOSTIC IMAGI NG ORDERABLES Final Result * (ABNORMAL) LACTIC ACID (01/03/2019 14:38 EST) Lactic Acid 2.6(HH) <2.0 mmol/L 01/03/2019 15:07 EST [facility] Blood specimen (specimen) BLOOD SPECIMEN / Unknown 01/03/2019 14:38 EST 01/03/2019 14:44 EST us Jordan Arizmendi MD CHEMISTRY & BLOOD GA S ORDERABLES Final Result [facility] [address] [place] [address] * EKG 12-LEAD (01/03/2019 14:34 EST) 01/03/2019 14:3 4 EST Narrative [facility] - 01/05/2019 14:43 EST ?[facility] ? Test Date: ?2019-01-03 Pat Name: ? PHYLISS BOOTHE ?Department: ?? ED ? Room: ? AC12 Gender: ? Female ? Final Assembly And Packing Supervisor: ?? [id number] : ?1960 ? Requested By: XOCHILT Franco Order Number: [id number] ? Jose PHIPPS: ?? SERENE DIOP MD ? Measurements Intervals ?Garner ? Rate: ? 124 ?P: ?60 IN: ? 136 ?QRS: ?68 QRSD: ? 90 ? T: ?8 QT: ? 335 ? QTc: ?483 ? Interpretive Statements SINUS TACHYCARDIA MINIMAL ST DEPRESSION Compared to ECG 07/11/2018 12:56:08 The heart rate has increased I reviewed the tracing and have either agreed or edited the findings in this report. Electronically Signed On 01-05-2019 14:43:36 EST by SERENE DIOP MD. Procedure Note Serene Diop MD - 01/05/2019 [facility] Test Date: 2019-01-03 Pat Name: TARA BOOTHE Department: ED Room: [facility] Gender: Female Final Assembly And Packing Supervisor: [phone] : 1960 Requested By: XOCHILT Franco Order Number: [id number] Reading MD: SERENE DIOP MD Measurements Intervals Garner Rate: 124 P: 60 IN: 136 QRS: 68 QRSD: 90 T: 8 QT: 335 QTc: 483 Interpretive Statements SINUS TACHYCARDIA MINIMAL ST DEPRESSION Compared to ECG 07/11/2018 12:56:08 The heart rate has increased I reviewed the tracing and have either agreed or edited the findings inthis report. Electronically Signed On 01-05-2019 14:43:36 EST by SERENE SKINNER. us Jordan Arizmendi MD CARDIAC ECG ORDERABL ES Final Result [facility] * ED/URGENT CARE ADD-ON (01/03/2019 14:30 EST) Tests to be added CBC, BMP 01/03/2019 14:30 EST [facility] Number for problems [id number] (ED) 01/03/2019 14:30 EST [facility] TOPOGRAPHY UNKNOWN / Unknown 01/03/2019 14:30 EST 01/03/2019 14:33 EST us Jordan Arizmendi MD HEMATOLOGY & PF4 ORD ERABLES Final Result Performing Organization Address [facility] Phone Number [facility] [address] [place] [address] * (ABNORMAL) D-DIMER (01/03/2019 14:22 EST) D-Dimer 1,097(H) <230 ng/mL 01/03/2019 16:07 EST [facility] Comment: CUTOFF VALUE FOR THE EXCLUSION OF DVT and PE: 230 ng/mL D-dimer units Any use of the age-adjusted cutoff value is a post-analytic modification of this FDA-approved test and is considered off-label use of the test result. [facility] laboratory does not have literature to support the validity of an age-adjusted cutoff for our specific assay. Add on order BLOOD SPECIMEN / Unknown 01/03/2019 14:22 EST 01/03/2019 14:25 EST us Jordan Arizmendi MD HEMATOLOGY & PF4 ORD ERABLES Final Result Performing Organization Address [facility] [[email or web address]] Co de Phone Number [facility] [address] [place] [address] * (ABNORMAL) COMPLETE BLOOD COUNT (01/03/2019 14:22 EST) WBC 1.33(L) 4.0 - 12.4 K/cmm 01/03/2019 14:55 [facility] RBC 4.20 3.86 - 5.04 M/cmm 01/03/2019 14:55 [facility] Hemoglobin 11.6 11.6 - 15.2 gm/dl 01/03/2019 14:55 [facility] HCT 36.1 34.9 - 44.4 % 01/03/2019 14:55 [facility] MCV 86 81 - 98 fl 01/03/2019 14:55 [facility] MCH 27.6 26.7 - 33.3 pg 01/03/2019 14:55 [facility] MCHC 32.1 32.1 - 35.9 gm/dl 01/03/2019 14:55 [facility] RDW-CV 15.2(H) <14.7 % 01/03/2019 14:55 [facility] RDW-SD 48.1 <50.4 fl 01/03/2019 14:55 [facility] PLT 32(L) 141 - 377 K/cmm 01/03/2019 14:55 [facility] MPV 11.1 9.5 - 12.7 fl 01/03/2019 14:55 [facility] BLOOD SPECIMEN / Unknown 01/03/2019 14:22 EST 01/03/2019 14:25 EST us Jordan Arizmendi MD HEMATOLOGY & PF4 ORD ERABLES Final Result [facility] [address] [place] [address] * (ABNORMAL) BASIC METABOLIC PANEL (BMP) (01/03/2019 14:22 EST) Sodium 139 136 - 145 mEq/L 01/03/2019 14:52 [facility] Potassium 4.0 3.5 - 5.0 mEq/L 01/03/2019 14:52 [facility] Chloride 104 96 - 110 mEq/L 01/03/2019 14:52 [facility] CO2 27 22 - 32 mEq/L 01/03/2019 14:52 [facility] BUN 10 10 - 26 mg/dl 01/03/2019 14:52 [facility] Creatinine 0.76 0.52 - 1.04 mg/dl 01/03/2019 14:52 [facility] GFR, Calculated 87 >60 ml/min/1.7 3m2 01/03/2019 14:52 [facility] Comment: eGFR calculated using CKD-EPI equation for non Americans. Multiply eGFR by 1.16 for Americans. Calcium 8.8 8.5 - 10.5 mg/dl 01/03/2019 14:52 [facility] Calculated Calcium 8.6 8.5 - 10.5 mg/dl 01/03/2019 14:52 [facility] Glucose, Serum 110(H) 70 - 100 mg/dl 01/03/2019 14:52 [facility] Fasting? Unknown 01/03/2019 14:32 [facility] BLOOD SPECIMEN / Unknown 01/03/2019 14:22 EST 01/03/2019 14:25 EST us Jordan Arizmendi MD CHEMISTRY & BLOOD GA S ORDERABLES Final Result Performing Organization Address City/[facility]/ZIP Co de Phone Number [facility] [address] [place] [address] * HOLD SST (01/03/2019 14:22 EST) Hold SST Hold for further testing. Specimen will be held for 5 days. 01/03/2019 14:38 [facility] Blood specimen (specimen) BLOOD SPECIMEN / Unknown 01/03/2019 14:22 EST 01/03/2019 14:25 EST us Jordan Arizmendi MD LAB INFO SERVICE AND SUPPORT & PHONE RESULT Final Result Performing Organization Address City/[facility]/ZIP Co de Phone Number [facility] [address] [place] [address] * HOLD PURPLE TOP (01/03/2019 14:22 EST) Hold Purple Top EDTA for hematology will be discarded after 48 hours, differential not available after 12 hours. 01/03/2019 14:29 EST [facility] Blood specimen (specimen) BLOOD SPECIMEN / Unknown 01/03/2019 14:22 EST 01/03/2019 14:25 EST us Jordan Arizmendi MD LAB INFO SERVICE AND SUPPORT & PHONE RESULT Final Result Performing Organization Address City/[facility]/ZIP Co de Phone Number [facility] [address] [place] [address] * HOLD GREEN TOP (01/03/2019 14:22 EST) Hold Green Top Hold for further testing. Specimen will be held for 5 days. 01/03/2019 14:37 EST [facility] Blood specimen (specimen) BLOOD SPECIMEN / Unknown 01/03/2019 14:22 EST 01/03/2019 14:25 EST us Jordan Arizmendi MD LAB INFO SERVICE AND SUPPORT & PHONE RESULT Final Result Performing Organization Address [facility] [[email or web address]] Co de Phone Number [facility] [address] [place] [address] * HOLD BLUE TOP (01/03/2019 14:22 EST) Hold Blue Top Sample for coagulation will be discarded after 4 hours 01/03/2019 14:44 EST [facility] Blood specimen (specimen) BLOOD SPECIMEN / Unknown 01/03/2019 14:22 EST 01/03/2019 14:25 EST us Jordan Arizmendi MD LAB INFO SERVICE AND SUPPORT & PHONE RESULT Final Result Performing Organization Address [facility] [[email or web address]] Co de Phone Number [facility] [address] [place] [address] documented in this encounter Visit Diagnoses Diagnosis Influenza A- Primary Influenza with other respiratory manifestations Influenza Influenza with other respiratory manifestations Pancytopenia (HCC-CMS) Other pancytopenia Mild persistent asthma without complication Unspecified asthma Chronic midline thoracic back pain Cirrhosis of liver without ascites, unspecified hepatic cirrhosis type (HCC-CMS) Other specified hypothyroidism Pancytopenia (HCC-CMS) Other pancytopenia Mild persistent asthma without complication Unspecified asthma Cirrhosis of liver (HCC-CMS) Cirrhosis of liver without mention of alcohol Hypothyroidism Unspecified hypothyroidism Fever Fever, unspecified Chronic back pain Backache, unspecified Sepsis (HCC-CMS) documented in this encounter Administered Medications Inactive Administered Medications - up to 3 most recent administrations Medication Order MAR Action Action Date Dose Rate Site acetaminophen (TYLENOL) tablet 650 mg 650 mg, oral, EVERY 6 HOURS PRN, Starting on Tue01/04/19 at 0043, Until Tue01/05/19 at 1520, Pain, Fever, Routine Given 01/05/2019 6:11 EST 650 mg Given 01/04/2019 21:22 EST 650 mg Given 01/04/2019 15:08 EST 650 mg albuterol (ACCUNEB) nebulizer solution 2.5 mg 2.5 mg, nebulization, Once (Without Time Specified), 1 dose, Starting on Tue01/03/19 at 1413, Until Tue01/03/19 at 1410, Routine Given 01/03/2019 14:10 EST 2.5 m g albuterol (ACCUNEB) nebulizer solution 2.5 mg 2.5 mg, nebulization, NOW X1, 1 dose, On Tue01/03/19 at 1430, STAT Given 01/03/2019 14:57 EST 2.5 mg albuterol inhaler 2 Puff 2 Puff, inhalation, EVERY 4 HOURS, First dose on Tue01/03/19 at 2345, Until Discontinued, Routine Given 01/05/2019 11:32 EST 2 Puffs Given 01/05/2019 8:37 EST 2 Puffs Given 01/04/2019 21:26 EST 2 Puffs ALPRAZolam (XANAX) tablet 0.5 mg 0.5 mg, oral, 3 TIMES DAILY PRN, Starting on Tue01/04/19 at 0920, Until Tue01/05/19 at 1520, Anxiety, Routine Given 01/04/2019 21:30 EST 0.5 mg Given 01/04/2019 10:01 EST 0.5 mg amitriptyline (ELAVIL) tablet 10 mg 10 mg, oral, AT BEDTIME, First dose (after last modification) on Tue19 at 0115, Until Discontinued, STAT Given 01/04/2019 21:25 EST 10 mg Given 01/04/2019 1:26 EST 10 mg cefePIME (MAXIPIME) 2,000 mg in sodium chloride (NS MBP) 50 mL IVPB 2,000 mg, intravenous, Administer over 30 Minutes, NOW X1, 1 dose, On Tue01/03/19 at 2100, Controlled antibiotic: has ID approved? No: ED Patient. If admitted, further doses required ID approval, STAT Given 01/03/2019 21:42 EST 2,000 mg cefePIME (MAXIPIME) 2,000 mg in sodium chloride (NS MBP) 50 mL IVPB 2,000 mg, intravenous, Administer over 30 Minutes, EVERY 12 HOURS, 7 doses, First dose (after last reorder) on Kirsten 01/04/19 at 0900, Last dose on Tue01/07/19 at 0900, Controlled antibiotic: has ID approved? No: After 10pm, Before 8am, Routine Given 01/04/2019 8:29 EST 2,000 mg cholecalciferol (Vitamin D3) tablet 1,000 Units 1,000 Units, oral, AT BEDTIME, First dose (after last modification) on [facility] 01/04/19 at 0115, Until Discontinued, STAT Given 01/04/2019 21:24 EST 1,000 Units Given 01/04/2019 1:26 EST 1,000 Units diphenhydrAMINE (BENADRYL) injection 25 mg 25 mg, intravenous, NOW X1, 1 dose, On Tue01/03/19 at 1615, STAT Given 01/03/2019 16:22 EST 25 mg fentaNYL citrate (PF) injection 100 mcg 100 mcg, intravenous, NOW X1, 1 dose, On Tue01/03/19 at 1945, STAT Given 01/03/2019 19:51 EST 100 mcg fentaNYL citrate (PF) injection 25 mcg 25 mcg, intravenous, NOW X1, 1 dose, On Tue01/03/19 at 1615, STAT Given 01/03/2019 16:17 EST 25 mcg ferrous gluconate (FERGON) tablet 324 mg 324 mg, oral, 3 TIMES DAILY WITH MEALS, First dose (after last modification) on [facility] 01/04/19 at 0800, Until Discontinued, Routine Given 01/05/2019 9:12 EST 324 mg Given 01/04/2019 21:24 EST 324 mg Given 01/04/2019 8:29 EST 324 mg fluticasone (FLOVENT) 110 mcg/actuation inhaler 1 Puff 1 Puff, inhalation, 2 TIMES DAILY, First dose on Tue01/04/19 at 0115, Until Discontinued, Routine Given 01/05/2019 9:09 EST 1 Puff Given 01/04/2019 21:26 EST 1 Puff Given 01/04/2019 9:15 EST 1 Puff ibuprofen (MOTRIN) tablet 400 mg 400 mg, oral, NOW X1, 1 dose, On Tue01/03/19 at 2015, STAT Given 01/03/2019 20:08 EST 400 mg ipratropium-albuterol (DUONEB) 0.5 mg-3 mg(2.5 mg base)/3 mL nebulizer solution 3 mL 3 mL, nebulization, Once (Without Time Specified), 1 dose, Starting on Tue01/03/19 at 1414, Until Tue01/03/19 at 1355, Routine Given 01/03/2019 13:55 EST 3 mL ipratropium-albuterol (DUONEB) 0.5 mg-3 mg(2.5 mg base)/3 mL nebulizer solution 3 mL 3 mL, nebulization, EVERY 4 HOURS PRN, Starting on Tue01/04/19 at 1315, Until Tue01/05/19 at 1520, Wheezing, Routine Given 01/04/2019 18:13 EST 3 mL lactated ringers (LR) infusion at 125 mL/hr, intravenous, CONTINUOUS, Starting on Tue01/03/19 at 2230, Until Tue01/04/19 at 0919, Routine New Bag 01/04/2019 1:14 EST 125 mL/hr lactated ringers BOLUS 1,000 mL 1,000 mL, intravenous, NOW X1, 1 dose, On Tue01/03/19 at 1745, STAT New Bag 01/03/2019 17:46 EST 1,000 mL levothyroxine (SYNTHROID) tablet 25 mcg 25 mcg, oral, AT BEDTIME, First dose (after last modification) on Tue01/04/19 at 0115, Until Discontinued, STAT Given 01/04/2019 21:25 EST 25 mcg Given 01/04/2019 1:25 EST 25 mcg lidocaine 132 mg in sodium chloride (NS) 50 mL IVPB 132 mg (rounded from 132.75 mg = 1.5 mg/kg ? 88.5 kg), intravenous, Administer over 10 Minutes, NOW X1, 1 dose, On Tue01/03/19 at 1745, STAT Given 01/03/2019 18:26 EST 132 mg lidocaine 5 % (LIDODERM) patch 1 Patch 1 Patch, transdermal, Administer over 12 Hours, DAILY, First dose on Tue01/04/19 at 0900, Until Discontinued, Routine Patch Applied 01/05/2019 9:09 EST 1 Patch Back Patch Applied 01/04/2019 8:29 EST 1 Patch Ba ck oseltamivir (TAMIFLU) capsule 75 mg 75 mg, oral, NOW X1, 1 dose, On Tue01/03/19 at 1930, STAT Given 01/03/2019 19:50 EST 75 mg oseltamivir (TAMIFLU) capsule 75 mg 75 mg, oral, 2 TIMES DAILY, 10 doses, First dose (after last reorder) on Tue01/04/19 at 0900, Last dose on Tue01/08/19 at 2100, Routine Given 01/05/2019 9:09 EST 75 mg Given 01/04/2019 21:23 EST 75 mg Given 01/04/2019 8:29 EST 75 mg prochlorperazine edisylate (COMPAZINE) injection 10 mg 10 mg, intravenous, NOW X1, 1 dose, On Tue01/03/19 at 1615, STAT Given 01/03/2019 16:19 EST 10 mg prochlorperazine edisylate (COMPAZINE) injection 10 mg 10 mg, intravenous, EVERY 6 HOURS PRN, Starting on Tue01/04/19 at 0043, Until Tue01/05/19 at 1520, Nausea, Routine Given 01/04/2019 14:53 EST 10 mg sodium chloride 0.9 % BOLUS 1,000 mL 1,000 mL, intravenous, NOW X1, 1 dose, On Tue01/03/19 at 1430, STAT New Bag 01/03/2019 15:02 EST 1,000 mL documented in this encounter Discontinued Medications Medication Sig Discontinue Reason Start Date End Da te dicyclomine (BENTYL) 10 mg capsule Take 1 Cap by mouth 3 times daily. Patient Stopped Taking 10/21/2018 01/03/2019 DOCUSATE SODIUM (COLACE ORAL) Take by mouth. Patient Stopped Taking 01/03/2019 gabapentin (NEURONTIN) 300 mg capsule Take 300 mg by mouth 3 times daily. Patient Stopped Taking 01/03/2019 LACTULOSE ORAL Take by mouth. Patient Stopped Taking 01/03/2019 lidocaine 5 % (LIDODERM) 5 % patch Place 1 Patch onto the skin daily. Cost of medication 01/03/2019 ondansetron (ZOFRAN-ODT) 4 mg disintegrating tablet Take 1 Tab by mouth every 8 hours as needed for Nausea. Patient Stopped Taking 08/26/2017 01/03/2019 oxyCODONE (ROXICODONE) 5 mg immediate release tablet Take 1 Tab by mouth every 4 hours as needed for up to 4 doses for Pain. Daily Max: 30 mg Patient Stopped Taking 04/07/2018 01/03/2019 pantoprazole (PROTONIX) 40 mg tablet Take 40 mg by mouth daily. Patient Stopped Taking 01/03/2019 rifAXImin (XIFAXAN) 550 mg tablet Take 550 mg by mouth 2 times daily Patient Stopped Taking 01/03/2019 ALPRAZolam (XANAX) 0.5 mg tablet Take 0.5 mg by mouth 3 times daily. 09/12/2017 01/05/2019 documented as of this encounter Active and Recently Administered Medications Times are shown in EST. Scheduled Medication Order 01/03/2019 01/04/2019 01/05/2019 albuterol (ACCUNEB) nebulizer solution 2.5 mg (COMPLETED) 2.5 mg, nebulization, Once (Without Time Specified), 1 dose, Starting on Tue01/03/19 at 1413, Until Tue01/03/19 at 1410, Routine 1410 (Given - Provider: RT Jacque) albuterol (ACCUNEB) nebulizer solution 2.5 mg (COMPLETED) 2.5 mg, nebulization, NOW X1, 1 dose, On Tue01/03/19 at 1430, STAT 1457 (Given - Provider: Cynthia Hugo, ) albuterol inhaler 2 Puff 2 Puff, inhalation, EVERY 4 HOURS, First dose on Tue01/03/19 at 2345, Until Discontinued, Routine 0127 (Given - Provider: Marcel Conklin)0553 (Given - Provider: Gary Ramirez RN)0830 (Canceled Entry - Provider: Juliet Meier RN)0916 (Given - Provider: Anthony Garcia, RT)1300 (Completed - Provider: Anthony Garcia RT)1545 (Canceled Entry - Provider: Anthony Garcia RT)2126 (Given - Provider: Gary Ramirez RN) 0105 (Not Given - Provider: Gary Ramirez RN - Reason: Patient/family refused - Comment: pt states not to wake her for inhaler)0449 (Not Given - Provider: Gary Ramirez RN - Reason: Other - Comment: do not wake for inhaler per pt request)0837 (Given - Provider: Paola Bella RN)1132 (Given - Provider: Paola Bella RN) amitriptyline (ELAVIL) tablet 10 mg 10 mg, oral, AT BEDTIME, First dose (after last modification) on Kirsten 01/04/19 at 0115, Until Discontinued, STAT 0126 (Given - Provider: Laurent Qureshi RN)2124 (Given - Provider: Gary Ramirez RN) cefePIME (MAXIPIME) 2,000 mg in sodium chloride (NS MBP) 50 mL IVPB (COMPLETED) 2,000 mg, intravenous, Administer over 30 Minutes, NOW X1, 1 dose, On Tue01/03/19 at 2100, Controlled antibiotic: has ID approved? No: ED Patient. If admitted, further doses required ID approval, STAT 2141 (Given - Provider: Dom Styles RN) cefePIME (MAXIPIME) 2,000 mg in sodium chloride (NS MBP) 50 mL IVPB (CANCELED) 2,000 mg, intravenous, Administer over 30 Minutes, EVERY 12 HOURS, 7 doses, First dose (after last reorder) on Tue01/04/19 at 0900, Last dose on Tue01/07/19 at 0900, Controlled antibiotic: has ID approved? No: After 10pm, Before 8am, Routine 0829 (Given - Provider: Juliet Meier RN) cholecalciferol (Vitamin D3) tablet 1,000 Units 1,000 Units, oral, AT BEDTIME, First dose (after last modification) on Tue01/04/19 at 0115, Until Discontinued, STAT 0126 (Given - Provider: Laurent Qureshi RN)212 (Given - Provider: Gary Ramirez, KENN) diphenhydrAMINE (BENADRYL) injection 25 mg (COMPLETED) 25 mg, intravenous, NOW X1, 1 dose, On Tue01/03/19 at 1615, STAT 1622 (Given - Provider: Trisha Duarte, RN) fentaNYL citrate (PF) injection 100 mcg (COMPLETED) 100 mcg, intravenous, NOW X1, 1 dose, On Tue01/03/19 at 1945, STAT 1951 (Given - Provider: Dom Styles, KENN) fentaNYL citrate (PF) injection 25 mcg (COMPLETED) 25 mcg, intravenous, NOW X1, 1 dose, On Tue01/03/19 at 1615, STAT 1617 (Given - Provider: Trisha Duarte, RN) ferrous gluconate (FERGON) tablet 324 mg 324 mg, oral, 3 TIMES DAILY WITH MEALS, First dose (after last modification) on Kirsten 01/04/19 at 0800, Until Discontinued, Routine 08 (Given - Provider: Juliet Meier RN)1452 (Not Given - Provider: Juliet Meier RN - Reason: Medication not available)2123 (Given - Provider: Gary Ramirez, KENN - Comment: pt wanted with PM meds) 0912 (Given - Provider: Paola Bella RN)1200 (Canceled Entry - Provider: Batch Job User Admin - Comment: Automatically canceled at discontinue of medication order) fluticasone (FLOVENT) 110 mcg/actuation inhaler 1 Puff 1 Puff, inhalation, 2 TIMES DAILY, First dose on Kirsten 01/04/19 at 0115, Until Discontinued, Routine 0127 (Given - Provider: Marcel Conklin)0915 (Given - Provider: Anthony Garcia, RT)212 (Given - Provider: Gary Ramirez, KENN) 09 (Given - Provider: Paola Bella RN) ibuprofen (MOTRIN) tablet 400 mg (COMPLETED) 400 mg, oral, NOW X1, 1 dose, On Tue01/03/19 at 2015, STAT 2008 (Given - Provider: Anastasia Huang, KENN) ipratropium-albuterol (DUONEB) 0.5 mg-3 mg(2.5 mg base)/3 mL nebulizer solution 3 mL (COMPLETED) 3 mL, nebulization, Once (Without Time Specified), 1 dose, Starting on Tue01/03/19 at 1414, Until Tue01/03/19 at 1355, Routine 1355 (Given - Provider: Cynthia Hugo, RT) lactated ringers BOLUS 1,000 mL (COMPLETED) 1,000 mL, intravenous, NOW X1, 1 dose, On Tue01/03/19 at 1745, STAT 1746 (New Bag - Provider: Dom Styles, RN)1832 (Completed - Provider: Harry Verma, KENN) levothyroxine (SYNTHROID) tablet 25 mcg 25 mcg, oral, AT BEDTIME, First dose (after last modification) on Tue01/04/19 at 0115, Until Discontinued, STAT 0125 (Given - Provider: Laurent Qureshi RN)2124 (Given - Provider: Gary Ramirez, KENN) lidocaine 132 mg in sodium chloride (NS) 50 mL IVPB (COMPLETED) 132 mg (rounded from 132.75 mg = 1.5 mg/kg ? 88.5 kg), intravenous, Administer over 10 Minutes, NOW X1, 1 dose, On Tue01/03/19 at 1745, STAT 1826 (Given - Provider: Dom Styles RN) lidocaine 5 % (LIDODERM) patch 1 Patch 1 Patch, transdermal, Administer over 12 Hours, DAILY, First dose on Tue01/04/19 at 0900, Until Discontinued, Routine 0829 (Patch Applied - Provider: Juliet Meier, KENN) 09 (Patch Applied - Provider: Paola Bella, KENN) oseltamivir (TAMIFLU) capsule 75 mg (COMPLETED) 75 mg, oral, NOW X1, 1 dose, On Tue01/03/19 at 1930, STAT 1950 (Given - Provider: Dom Styles, KENN) oseltamivir (TAMIFLU) capsule 75 mg 75 mg, oral, 2 TIMES DAILY, 10 doses, First dose (after last reorder) on Kirsten 01/04/19 at 0900, Last dose on Tue01/08/19 at 2100, Routine 0829 (Given - Provider: Juliet Meier, KENN)212 (Given - Provider: Gary Ramirez, KENN) 09 (Given - Provider: Paola Bella RN) prochlorperazine edisylate (COMPAZINE) injection 10 mg (COMPLETED) 10 mg, intravenous, NOW X1, 1 dose, On Tue01/03/19 at 1615, STAT 1619 (Given - Provider: Trisha Duarte RN) sodium chloride 0.9 % BOLUS 1,000 mL (COMPLETED) 1,000 mL, intravenous, NOW X1, 1 dose, On Tue01/03/19 at 1430, STAT 1502 (New Bag - Provider: Trisha Duarte, KENN)1645 (Completed - Provider: Sowmya Flores RN) Continuous Medication Order 01/03/2019 01/04/2019 01/05/2019 lactated ringers (LR) infusion (CANCELED) at 125 mL/hr, intravenous, CONTINUOUS, Starting on Tue01/03/19 at 2230, Until Tue01/04/19 at 0919, Routine 0114 (New Bag - Provider: Laurent Qureshi RN)0937 (IV Stopped - Provider: Juliet Meier RN) PRN Medication Order 01/03/2019 01/04/2019 01/05/2019 acetaminophen (TYLENOL) tablet 650 mg 650 mg, oral, EVERY 6 HOURS PRN, Starting on Tue01/04/19 at 0043, Until Tue01/05/19 at 1520, Pain, Fever, Routine 0114 (Given - Provider: Laurent Qureshi RN)0829 (Given - Provider: Juliet Meier, KENN)1508 (Given - Provider: Juliet Meier, KENN)2122 (Given - Provider: Gary Ramirez, KENN) 0611 (Given - Provider: Gary Ramirez, KENN) ALPRAZolam (XANAX) tablet 0.5 mg 0.5 mg, oral, 3 TIMES DAILY PRN, Starting on Kirsten 01/04/19 at 0920, Until Tue01/05/19 at 1520, Anxiety, Routine 1001 (Given - Provider: Juliet Meier RN)2130 (Given - Provider: Gary Ramirez, KENN) ipratropium-albuterol (DUONEB) 0.5 mg-3 mg(2.5 mg base)/3 mL nebulizer solution 3 mL 3 mL, nebulization, EVERY 4 HOURS PRN, Starting on Tue01/04/19 at 1315, Until Tue01/05/19 at 1520, Wheezing, Routine 1813 (Given - Provider: Madeleine Alvarenga, RT) prochlorperazine edisylate (COMPAZINE) injection 10 mg 10 mg, intravenous, EVERY 6 HOURS PRN, Starting on Kirsten 01/04/19 at 0043, Until Tue01/05/19 at 1520, Nausea, Routine 1453 (Given - Provider: Juliet Meier RN) documented in this encounter Orders Medications Ordered That Luc ht Not Have Been Administered Count Last Ordered Date First Ordered Date ipratropium-albuterol (DUONE B) 0.5 mg-3 mg(2.5 mg base)/3 mL nebulizer solution 3 mL 2 01/04/2019 amitriptyline (ELAVIL) tablet 10 mg 1 01/03 cholecalciferol (Vitamin D3) tablet 1,000 Units 1 01/03/2019 fentaNYL citrate (PF) 50 mcg/mL injection 1 01/03/2019 ferrous gluconate (FERGON) tablet 324 mg 1 01/03/2019 levothyroxine (SYNTHROID) tablet 25 mcg 1 0 01/03/2019 Diet Count Last Ordered Date First Orde red Date DISCHARGE DIET 1 01/05/2019 Nursing Count Last Ordered Date First Orde red Date ACTIVITY INSTRUCTIONS 1 01/05/2019 BATHING INSTRUCTIONS 1 01/05/2019 CONTRAINDICATION TO ANTICOAG ULATION THERAPY 1 01/04/2019 INSERT PERIPHERAL IV 2 01/04/2019 019 CHECK PULSE OXIMETRY WHILE AMBULATING 1 Respiratory Care Count Last Ordered Date First Ordered Date DRY POWDERED OR METERED DOSE INHALER 1 12/22 NEBULIZER TX INTERMITTENT 2 01/03/2019 Admission Count Last Ordered Date First Orde red Date STATUS: INPATIENT ACUTE ADMISSION 1 019 ED BED REQUEST 1 01/03/2019 Transfer Count Last Ordered Date First Orde red Date UR PATIENT STATUS CHANGE 1 01/04/2019 Discharge Count Last Ordered Date First Orde red Date DISCHARGE PATIENT 1 01/05/2019 Legal Count Last Ordered Date First Orde red Date MISCELLANEOUS DISCHARGE INSTRUCTIONS 12/22 documented in this encounter Additional Health Concerns Infection Onset Date Last Indicated Resolved Time Influenza * Comment:Flu A 01/04/2019 01/04/2019 01/05/2019 13:15 EST documented as of this encounter Care Teams City Collector Relationship Specialty Start Date End Date Naty Evans MD [address] [place] [address] [place] [phone] PCP - Alternate 09/30/17 04/11/19 Aj Issa MD [address] [id number] PCP - General 07/29/18 03/13/19 documented as of this encounter
--- OUTSIDE RECORDS SUMMARY | 2024-11-22 17:27 | XMS_ITS | Encounter Summary ---
Author Organization [facility] Address [address] [place] [address] Care Team Providers Care Outside Plant Field Engineer Name Role Phone Naty Evans MD Unavailable Segundo Weems MD Primary Care Provider [phone] Reason for Visit * Reason Comments Medical Evaluation Arrives reporting m y PCP called and told me to come to the ED bc my WBC is low. Patient reporting she has just been feeling off lately. Patient reporting crushing CP for a week. No resp distress. Encounter Details Date Type Department Care Team (Late st Contact Info) Description 02/08/2018 19:03 EDT - 02/08/2018 22:38 EDT Emergency [facility] Emergency Department - Main [address] [phone] Adrienne Dickens MD [address] [place] [address], [address] [place] [phone] Emergency, MD Rolando Pain of upper abdomen (Primary Dx) Discharge Disposition: Home or Self [...] Sign Reading Time Taken Comments Blood Pressure 113/72 02/08/2018 2200 EDT Pulse 94 02/08/2018 1907 EDT Temperature 37 ??C (98.6 ??F) 02/08/2018 1907 EDT Respiratory Rate 11 02/08/2018 2200 EDT Oxygen Saturation 98% 02/08/2018 2200 EDT Inhaled Oxygen Concentration - - [...] shopping? Answer Date of Assessment Author No 09/09/2017 9:36 Inderjit Radford RN documented as of this encounter Mental Status * Because of a physical, mental, or emotional condition, does this person have serious difficulty concentrating, remembering, or making decisions? Answer Entry Date Author No 09/09/2017 9:36 Inderjit Radford RN documented in this encounter Discharge Diagnoses Diagnosis R10.819 Abdominal tenderness, unspecified site-R10.819[ICD-10-CM] R50.9 Fever, unspecified-R50.9[ICD-10-CM] R05 Cough-R05[ICD-10-CM] R11.2 Nausea with vomiting, unspecified-R11.2[ICD-10-CM] R53.83 Other fatigue-R53.83[ICD-10-CM] K08.89 Other specified disorders of teeth and supporting structures-K08.89[ICD-10-CM] J45.909 Unspecified asthma, uncomplicated-J45.909[ICD-10-CM] K74.60 Unspecified cirrhosis of liver-K74.60[ICD-10-CM] K21.9 Gastro-esophageal reflux disease without esophagitis-K21.9[ICD-10-CM] E07.9 Disorder of thyroid, unspecified-E07.9[ICD-10-CM] Z79.899 Other stained glass artist (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 [facility] Patient Instructions Abdominal Pain: Care Instructions Your Care Instructions Abdominal pain has many possible causes. Some aren't serious and get better on their own in a few days. Others need more testing and treatment. If your pain continues or gets worse, you need to be rechecked and may need more tests to find out what is wrong. You may need surgery to correct the problem. Don't ignore new symptoms, such as fever, nausea and vomiting, urination problems, pain that gets worse, and dizziness. These may be signs of a more serious problem. Your doctor may have recommended a follow-up visit in the next 8 to 12 hours. If you are not getting better, you may need more tests or treatment. The doctor has checked you carefully, but problems can develop later. If you notice any problems ornew symptoms, get medical treatment right away. Follow-up care is a brown part of your treatment and safety. Be sure to make and go to all appointments, and call your doctor if you are having problems. It's also a good idea to know your test resultsand keep a list of the medicines you take. How can you care for yourself at home? ?? Rest until you feel better. ?? To prevent dehydration, drink plenty of fluids, enough so that your urine is light yellow or clear like water. Choose water and other caffeine-free clear liquids until you feel better. If you havekidney, heart, or liver disease and have to limit fluids, talk with your doctor before you increasethe amount of fluids you drink. ?? If your stomach is upset, eat mild foods, such as rice, dry toast or crackers, bananas, and applesauce. Try eating several small meals instead of two or three large ones. ?? Wait until 48 hours after all symptoms have gone away before you have spicy foods, alcohol, and drinks that contain caffeine. ?? Do not eat foods that are high in fat. ?? Avoid anti-inflammatory medicines such as aspirin, ibuprofen (Advil, Motrin), and naproxen (Aleve). These can cause stomach upset. Talk to your doctor if you take daily aspirin for another health problem. When should you call for help? Call 911 anytime you think you may need emergency care. For example, call if: ? ?? You passed out (lost consciousness). ? ?? You pass maroon or very bloody stools. ? ?? You vomit blood or what looks like coffee grounds. ? ?? You have new, severe belly pain. ?Call your doctor now or seek immediate medical care if: ? ?? Your pain gets worse, especially if it becomes focused in one area of your belly. ? ?? You have a new or higher fever. ? ?? Your stools are black and look like tar, or they have streaks of blood. ? ?? You have unexpected vaginal bleeding. ? ?? You have symptoms of a urinary tract infection. These may include: ?? Pain when you urinate. ?? Urinating more often than usual. ?? Blood in your urine. ? ?? You are dizzy or lightheaded, or you feel like you may faint. ?Watch closely for changes in your health, and be sure to contact your doctor if: ? ?? You are not getting better after 1 day (24 hours). Where can you learn more? Go to [email or web address] or log into your [employer] account at [email or web address]. Enter E907 in the search box to learn more about Abdominal Pain: Care Instructions. Current as of: February 07, 2017 Content Version: 11.4 ?? [id number] [employer]. Care instructions adapted under license by [facility] If you have questions about a medical condition or this instruction, always ask your healthcare professional. [employer] disclaims any warranty or liability foryour use of this information. documented in this encounter Medications at Time [...] (ROXICODONE) 5 mg immediate release tablet Take by mouth every 4 hours as needed for Pain. 8 pantoprazole (PROTONIX) 40 mg tablet Take 40 mg by mouth daily. 9 rifAXImin (XIFAXAN) 550 mg tablet Take 550 mg by mouth 2 times daily 9 documented as of this encounter Discharge Disposition Disposition Code Departure Means Destination Home or Self Care documented in this encounter ED Notes * Ahsan Blas RN - 02/08/20182234 EDT AVS reviewed with patient. All questions and concerns addressed. NAD. Ambulatory. VSS. * Beto Cardoso - 02/08/20182047 EDT Blood drawn via saline lock per protocol, tiger and purple tube(s) sent to lab per order. * Adrienne Dickens MD - 02/08/20181955 EDT DOS: 02/08/2018 Chief Complaint Patient presents with ??? Medical Evaluation Arrives reporting my PCP called and told me to come to the ED bc my WBC is low. Patient reportingshe has just been feeling off lately. Patient reporting crushing CP for a week. No resp distress. HPI HPI Comments: I, Deepti Curiel, am scribing for Adrienne Dickens MD while he/she is personally performing the service. Deepti Curiel 02/08/2018 19:56 I performed a history and exam of this patient and discussed the case with the resident. I supervised the resident and gave final approval for all management and decisions. In places where the notes are contradictory, my note represents the history that I obtained from the patient and the examination I did of the patient. Tara Boothe is a 57 y.o. 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 She presents to the ED as recommended by her PCP for a low WBC of 1.4. She went to [facility] today due to not feeling well for some time. She describes having generalized body aches for a week and a half and fever of 101.8 at home. She reports her pains are intermittent. She denies dysuria. She has a dry cough when lying down. She endorses nausea and vomiting which began a few days ago. She states she has not eaten a lot but feels dry. She vomited two days ago but not again since. She has not had any difficulty urinating. At her PCP office, her blood count was found to be low which has been chronic. She states they know it has always been low. Patient denies chest pain, numbness, tingling, weakness, headache, myalgias, rash or lower extremity swelling. She notes having some abdominal pain and distension. Of note, patient shares her physician started her on penicillin today for her tooth. She reports having a tooth that is acting up. The patient's past medical, family, and social history was reviewed and updated as needed. She is acurrent tobacco smoker without alcohol or drug use. The history is provided by the patient and medical records. Review of Systems Review of Systems Constitutional: Positive for chills, fatigue and fever. HENT: Positive for dental problem. Negative for congestion, sore throat and trouble swallowing. Respiratory: Positive for cough. Negative for shortness of breath. Cardiovascular: Negative for chest pain, palpitations and leg swelling. Gastrointestinal: Positive for abdominal distention, nausea and vomiting. Negative for abdominal pain, constipation and diarrhea. Genitourinary: Negative for difficulty urinating, dysuria and frequency. Musculoskeletal: Positive for arthralgias and myalgias. Skin: Negative for rash. Neurological: Negative for dizziness, weakness, light-headedness, numbness and headaches. Psychiatric/Behavioral: Negative for confusion. All other systems reviewed [...] Reassessment?: Yes Temp: 37 ??C (98.6 ??F) Pulse: 94 Heart Rate: 88 BPM Resp: 11 SpO2: 98 % BP: 113/72 BP MAP: 86 mm Hg BP Device: BP Machine O2 Device: None (Room air) Physical Exam Constitutional: She is oriented to person, place, and time. She appears well- developed and well-nourished. No distress. HENT: Head: Normocephalic and atraumatic. Multiple missing teeth, poor dentition. Tender to percussion of lower left teeth, with tooth #23 loose. # 22 and #23 most tender, but no abscess noted. Eyes: Conjunctivae are normal. Pupils are equal, round, and reactive to light. Right eye exhibits no discharge. Left eye exhibits no discharge. Neck: Normal range of motion. No tracheal deviation present. Cardiovascular: Normal rate, regular rhythm and normal heart sounds. No murmur heard. Pulmonary/Chest: Effort normal. No respiratory distress. She has no wheezes. She has no rales. Abdominal: Soft. Bowel sounds are normal. She exhibits no distension. There is tenderness. Musculoskeletal: Normal range of motion. She exhibits [...] was independently reviewed and interpreted by me. (SR 88 Nl axis, nl RWP no acute ST changes). Radiology orders: PORTABLE CHEST 1 VIEW POCT US EXTENDED FOCUSED ABD TRAUMA (EFAST) Patient had a portable chest X-ray, which was significant for no focal or coalescent airspace opacity. There are a few small platelike atelectasis in the left mid/lower lung zone. The cardiac silhouette and pulmonary vascularity are within normal limits. There is a slight prominence of the interstitial lung markings which appears not significantly changed when compare with prior radiographs. No visible pleural effusion or pneumothorax, however neither can be excluded on this semiupright radiograph. Osseous structures are grossly unremarkable for age. Patient had x-rays that were obtained, reviewed, and interpreted by myself and discussed with a radiologist. Please see radiology report for further details. ED Lab Results Labs Reviewed HEMAGRAM AND DIFFERENTIAL - Abnormal Result Value Status WBC 1.37 (*) Final RBC 4.00 Final Hemoglobin 11.2 (*) Final HCT 33.4 (*) Final MCV 84 Final MCH 28.0 Final MCHC 33.5 Final RDW-CV 14.8 (*) Final RDW-SD 45.1 Final PLT 43 (*) Final MPV 10.4 Final Neutrophils 76.0 Final Bands 1.0 Final Lymphocytes 15.0 Final Monocytes 6.0 Final Basophils 2.0 Final ABS Neutrophils 1.04 (*) Final ABS Bands 0.01 Final ABS Lymphs 0.21 (*) Final ABS Monocytes 0.08 (*) Final ABS Basophils 0.03 Final Type of Diff: Manual Final RESPIRATORY VIRUS DETECTION Result Final Value: No RSV, Influenza A, or Influenza B detected by PCR COMPREHENSIVE METABOLIC PANEL (CMP) Potassium 4.2 Final Sodium 140 Final Chloride 106 Final CO2 24 Final Total Alkaline Phosphatase 76 Final Bilirubin, Total 0.5 Final AST 26 Final ALT 33 Final Albumin 3.7 Final Total Protein 7.1 Final Creatinine 0.85 Final GFR, Calculated 76 Final BUN 14 Final Calcium 8.9 Final Calculated Calcium 9.1 Final Glucose, Serum 76 Final Fasting? Unknown Final POCT URINE DIPSTICK Relevant Data Procedures ED COURSE A medical screening exam was performed. The patient is a 57 y.o. 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 She presents to the ED as recommended by her PCP for a low WBC of 1.4 associated with generalized body aches, fatigue, fever, cough,nausea and vomiting x1. Physical exam was significant for regular heart rate and rhythm. Lungs clear. Abdomen soft. No lower extremity edema. Patient's nausea treated with Zofran 4 mg IV. Patient had labs that were reviewed independently by myself, significant for negative influenza. WBC 1.37 and baseline. H/H 11.2/33.4. PLT 43. Electrolytes normal. Normal LFT's. Patient hydrated with IV normal saline. 2156 patient requests something for pain control. I met with the patient. She states she does not take anything for pain at home. We discussed having a bedside US. Patient agreeable to this plan. Patient agreeable to trying oxycodone 5 mg PO with IV Zofran as she is afraid of nausea. 2211 I performed a bedside EFAST US. Findings consistent with no evidence of acites. Images obtained, reviewed, and interpreted independently by myself. Please see formal report in the [employer] section. Images saved in PACS. Patient has a few Zofran at home. We discussed a prescription for Zofran as well as recommended following up with her PCP. Patient feels comfortable going home with this plan. Patient placed on PCN by PCP - ? For dental pain. Patient is unsure but states she told PCP about her dental pain and she is tender in her lower teeth. I advised follow up with PCP to discuss, will continue for now. Unable to access PCP's notes ([facility]). Patient looks well at this time. Patient discharged to home. Sxs to monitor and return for given to the patient, who is comfortable with the plan. ASSESSMENT AND PLAN Final diagnoses: Pain of upper abdomen DISPOSITION: Discharged The patient's pain was managed [...] at departure from the Emergency Department: Good PCP: Segundo Weems [facility] This documentation is recorded by Deepti Curiel acting as Scribe under the direction and presence of Dr. Dickens. I, Adrienne Dickens MD, have utilized a scribe to help in the preparation of this note. I have reviewed and agree with the scribe's note and I have made modifications as necessary. 02/10/2018 6:33 No flowsheet data found. * Jessica Josh - 02/08/2018 1904 EDT TCALL: MANOJ BOOTHE 60 REFERRED BY [facility]. WBC 1.4, VIRAL INFECTION, CHILLS,FATIGUE (JM) documented in this encounter Miscellaneous Notes * ED Resident - Josh Sanches MD - 02/08/2018 2224 EDT DOS: 02/08/2018 Chief Complaint Patient presents with ??? Medical Evaluation Arrives reporting my PCP called and told me to come to the ED bc my WBC is low. Patient reportingshe has just been feeling off lately. Patient reporting crushing CP for a week. No resp distress. HPI The patient is a 57 y.o. female who presents today with Medical Evaluation (Arrives reporting my PCP called and told me to come to the ED bc my WBC is low. Patient reporting she has just been feeling off lately. Patient reporting crushing CP for a week. No resp distress. ) The history is provided by the patient. Medical Evaluation Review of Systems Review of Systems The patient's past medical, family and social [...] Reassessment?: Yes Temp: 37 ??C (98.6 ??F) Pulse: 94 Heart Rate: 87 BPM Resp: 17 SpO2: 96 % BP: 115/50 BP MAP: 70 mm Hg BP Device: BP Machine O2 Device: None (Room air) Physical Exam Constitutional: She is oriented to person, place, and time. She appears well- developed and well-nourished. HENT: Head: Normocephalic and atraumatic. Cardiovascular: Normal rate and regular rhythm. Pulmonary/Chest: Effort normal. She has wheezes. Abdominal: Soft. She exhibits no distension and no mass. There is tenderness. There is no rebound and no guarding. Musculoskeletal: Normal range of motion. Neurological: She is alert and oriented to person, place, and time. Skin: Skin is warm and dry. RESULTS EKG orders: EKG 12-LEAD ECG Reviewed: Findings include: normal EKG, normal sinus rhythm, unchanged from previous tracings. The study has been independently viewed by me. The study has been interpreted independently and contemporaneously by me. The EKG appears to be a good tracing. Attending drupal architect not immediately available for acute interpretation. Radiology orders: PORTABLE CHEST 1 VIEW POCT US EXTENDED FOCUSED ABD TRAUMA (EFAST) Imaging Reviewed. I have independently reviewed the images. There are no significant abnormalities ED Lab Results Labs Reviewed HEMAGRAM AND DIFFERENTIAL - Abnormal Result Value Status WBC 1.37 (*) Final RBC 4.00 Final Hemoglobin 11.2 (*) Final HCT 33.4 (*) Final MCV 84 Final MCH 28.0 Final MCHC 33.5 Final RDW-CV 14.8 (*) Final RDW-SD 45.1 Final PLT 43 (*) Final MPV 10.4 Final Neutrophils 76.0 Final Bands 1.0 Final Lymphocytes 15.0 Final Monocytes 6.0 Final Basophils 2.0 Final ABS Neutrophils 1.04 (*) Final ABS Bands 0.01 Final ABS Lymphs 0.21 (*) Final ABS Monocytes 0.08 (*) Final ABS Basophils 0.03 Final Type of Diff: Manual Final RESPIRATORY VIRUS DETECTION Result Final Value: No RSV, Influenza A, or Influenza B detected by PCR COMPREHENSIVE METABOLIC PANEL (CMP) Potassium 4.2 Final Sodium 140 Final Chloride 106 Final CO2 24 Final Total Alkaline Phosphatase 76 Final Bilirubin, Total 0.5 Final AST 26 Final ALT 33 Final Albumin 3.7 Final Total Protein 7.1 Final Creatinine 0.85 Final GFR, Calculated 76 Final BUN 14 Final Calcium 8.9 Final Calculated Calcium 9.1 Final Glucose, Serum 76 Final Fasting? Unknown Final POCT URINE DIPSTICK Relevant Data Procedures ED COURSE A medical screening exam was performed. Labs stable to previous labs in system. Patient with known pancytopenia, secondary to chronic splenic vein thrombosis. POCT u/s WNL no ascities. Patient had relieve of pain with pain medication. She was discharged home with instructions to follow up with PCP. ASSESSMENT AND PLAN Final diagnoses: Pain of upper abdomen ED Current Prescriptions None DISPOSITION: Discharged The patient's pain was managed [...] departure from the Emergency Department: Improved PCP: Segundo Weems [facility] 02/08/2018 22:24 No flowsheet data found. documented in this encounter Plan of Treatment Upcoming Encounters Date Type Department Care Team (Late st Contact Info) Description 01/04/2025 13:00 EST Office Visit [facility] Ophthalmology [address] [phone] Gagandeep Rome MD [address] [place] [address], [facility] [address] [place] [phone] 02/11/2025 13:30 EDT Telemedicine [facility] Hematology & Oncology [address] [phone] Dana Padilla MD [address] [place] [address], [facility] [address] [place] [phone] documented as of this encounter Procedures Procedure Name Priority Date/Time Associated Diagnosis Comments ECG REPORT - SCANNED 02/10/2018 10:45 EDT POCT US EXTENDED FOCUSED ABD TRAUMA (EFAST) STAT 02/08/2018 22:20 EDT COMPLETE BLOOD COUNT AND DIFFERENTIAL STAT 02/08/2018 20:31 EDT COMPREHENSIVE METABOLIC PANEL (CMP) STAT 02/08/2018 20:31 EDT PORTABLE CHEST 1 VIEW STAT 02/08/2018 20:24 EDT RESPIRATORY VIRUS DETECTION Routine 02/08/2018 20:12 EDT EKG 12-LEAD STAT 02/08/2018 19:26 EDT documented in this encounter Results * ECG REPORT - SCANNED (02/10/2018 10:45 EDT) 02/10/2018 10:4 5 EDT us Scan 2 Vice President Of Instruction PROCEDURE/MINOR SURGICAL OR DERABLES Final Result * POCT US EXTENDED FOCUSED ABD TRAUMA (EFAST) (02/08/2018 22:20 EDT) Anatomical Region Laterality Modality Other 02/08/2018 22:2 0 EDT 02/10/2018 6:42 EDT Narrative 02/10/2018 6:42 EDT [facility] - Ultrasound Exam Date: 02/08/2018 Exam Type: POCT US EXTENDED FOCUSED ABD TRAUMA (EFAST) Faa Certified Powerplant Mechanic: Adrienne iDckens MD Attending: Adrienne Dickens MD Worksheet: POCUS_EFAST Exam Information: ?? A focused (limited) ultrasound exam of the peritoneal space (including the following areas sub-phrenic, Morison?s pouch, splenorenal, superior colic gutters, and retro-vesicular), pericardial space, and pleural spaces was performed to evaluate for free fluid. Exam Type: ?? Clinically Indicated Indication(s) for Exam: ?? The exam was performed with the following indications: Other indications as noted ?? Other Indication(s): cirrhosis - eval for ascites Views Obtained ?? The following spaces were examined as part of the FAST exam: Pericardial, pleural, sub-phrenic, Morison's pouch, splenorenal, superior colic gutters, and retro-vesicular spaces were examined. Findings: ?? Morison's pouch (RUQ): Fluid absent ?? Splenorenal space (LUQ): Fluid absent ?? Pericardial space: Fluid present ?? Pericardial tamponade?: Absent ?? Retrovesicular space: Fluid absent Interpretation: ?? Peritoneal free fluid: None ?? Pericardial free fluid: Small Confirmatory study: ?? What confirmatory study was done?: Not applicable Physician Signature: ?? I review and approve of the documentation above.: Signed by Adrienne Dickens MD on Saturday, February 10, 2018 at 6:42:19 AM This exam was performed and interpreted by the [facility] ED Staff Procedure Note Adrienne Dickens MD - 02/10/2018 [facility] - Ultrasound Exam Date: 02/08/2018 Exam Type: POCT US EXTENDED FOCUSED ABD TRAUMA (EFAST) Faa Certified Powerplant Mechanic: Adrienne Dickens MD Attending: Adrienne Dickens MD Worksheet: POCUS_EFAST Exam Information: A focused (limited) ultrasound exam of the peritoneal space (including the following areas sub-phrenic, Morison?s pouch, splenorenal, superior colic gutters, and retro-vesicular), pericardial space, and pleural spaces was performed to evaluate for free fluid. Exam Type: Clinically Indicated Indication(s) for Exam: The exam was performed with the following indications: Other indications as noted Other Indication(s): cirrhosis - eval for ascites Views Obtained The following spaces were examined as part of the FAST exam: Pericardial, pleural, sub-phrenic, Morison's pouch, splenorenal, superior colic gutters, and retro-vesicular spaces were examined. Findings: Morison's pouch (RUQ): Fluid absent Splenorenal space (LUQ): Fluid absent Pericardial space: Fluid present Pericardial tamponade?: Absent Retrovesicular space: Fluid absent Interpretation: Peritoneal free fluid: None Pericardial free fluid: Small Confirmatory study: What confirmatory study was done?: Not applicable Physician Signature: I review and approve of the documentation above.: Signed by Adrienne Dickens MD on Saturday, February 10, 2018 at 6:42:19 AM This exam was performed and interpreted by the [facility] ED Staff us Adrienne Dickens MD [facility] POCT US ORDERABLES Final Result * COMPREHENSIVE METABOLIC PANEL (CMP) (02/08/2018 20:31 EDT) Potassium 4.2 3.5 - 5.0 mEq/L 02/08/2018 21:13 EDT [facility] Comment: Slight hemolysis Hemolysis may elevate potassium result. Sodium 140 136 - 145 mEq/L 02/08/2018 21:13 EDT [facility] Comment:Slight hemolysis Chloride 106 96 - 110 mEq/L 02/08/2018 21:13 [facility] Comment:Slight hemolysis CO2 24 22 - 32 mEq/L 02/08/2018 21:13 [facility] Comment:Slight hemolysis Total Alkaline Phosphatase 76 38 - 126 U/L 02/08/2018 21:13 [facility] Comment: Slight hemolysis Hemolysis will decrease ALKP result Suggest re-evaluation if clinically indicated Bilirubin, Total 0.5 <1.4 mg/dl 02/09/20 18 21:13 [facility] Comment: Slight hemolysis Results may be affected due to hemolysis. AST 26 15 - 46 U/L 02/08/2018 21:13 [facility] Comment: Slight hemolysis Results may be affected due to hemolysis. ALT 33 <53 U/L 02/08/2018 21:13 [facility] Comment: Slight hemolysis Results may be affected due to hemolysis. Albumin 3.7 3.4 - 4.9 g/dl 02/08/2018 21:13 [facility] Comment: Slight hemolysis Results may be affected due to hemolysis. Total Protein 7.1 6.3 - 8.2 g/dl 02/08/2018 21:13 [facility] Comment: Slight hemolysis Results may be affected due to hemolysis. Creatinine 0.85 0.52 - 1.04 mg/dl 02/08/2018 21:13 [facility] Comment:Slight hemolysis GFR, Calculated 76 >60 ml/min/1.7 3m2 02/08/2018 21:13 [facility] Comment: eGFR calculated using CKD-EPI equation for non Americans. Multiply eGFR by 1.16 for Americans. BUN 14 10 - 26 mg/dl 02/08/2018 21:13 [facility] Comment: Slight hemolysis Results may be affected due to hemolysis. Calcium 8.9 8.5 - 10.5 mg/dl 02/08/2018 21:13 [facility] Comment:Slight hemolysis Calculated Calcium 9.1 8.5 - 10.5 mg/dl 02/08/2018 21:13 [facility] Glucose, Serum 76 70 - 100 mg/dl 02/08/2018 21:13 [facility] Comment: Slight hemolysis Results may be affected due to hemolysis. Fasting? Unknown 02/08/2018 20:49 [facility] Blood specimen (specimen) BLOOD SPECIMEN / Unknown 02/08/2018 20:31 EDT 02/08/2018 20:49 EDT us Josh Sanches MD CHEMISTRY & BLOOD GAS OR DERABLES Final Result [facility] [address] [place] [address] * (ABNORMAL) HEMAGRAM AND DIFFERENTIAL (02/08/2018 20:31 EDT) WBC 1.37(L) 4.0 - 12.4 K/cmm 02/08/2018 21:17 [facility] RBC 4.00 3.86 - 5.04 M/cmm 02/08/2018 21:17 [facility] Hemoglobin 11.2(L) 11.6 - 15.2 gm/dl 02/08/2018 21:17 [facility] HCT 33.4(L) 34.9 - 44.4 % 02/08/2018 21:17 [facility] MCV 84 81 - 98 fl 02/08/2018 21:17 [facility] MCH 28.0 26.7 - 33.3 pg 02/08/2018 21:17 [facility] MCHC 33.5 32.1 - 35.9 gm/dl 02/08/2018 21:17 [facility] RDW-CV 14.8(H) <14.7 % 02/08/2018 21:17 [facility] RDW-SD 45.1 <50.4 fl 02/08/2018 21:17 [facility] PLT 43(L) 141 - 377 K/cmm 02/08/2018 21:17 [facility] MPV 10.4 9.5 - 12.7 fl 02/08/2018 21:17 [facility] Neutrophils 76.0 % 02/08/2018 21:47 [facility] % Bands 1.0 % 02/08/2018 21:47 [facility] Lymphocytes 15.0 % 02/08/2018 21:47 T [facility] Monocytes 6.0 % 02/08/2018 21:47 [facility] Basophils 2.0 % 02/08/2018 21:47 [facility] ABS Neutrophils 1.04(L) 2.20 - 8.85 K/cmm 02/08/2018 21:47 [facility] ABS Bands 0.01 K/cmm 02/08/2018 21:47 [facility] ABS Lymphs 0.21(L) 1.09 - 3.30 K/cmm 02/08/2018 21:47 [facility] ABS Monocytes 0.08(L) 0.1 - 0.8 K/cmm 02/08/2018 21:47 [facility] ABS Basophils 0.03 0.01 - 0.11 K/cmm 02/08/2018 21:47 [facility] Type of Diff: Manual 02/08/2018 21:47 [facility] Blood specimen (specimen) BLOOD SPECIMEN / Unknown 02/08/2018 20:31 EDT 02/08/2018 20:49 EDT us Josh Sanches MD PACKAGES & DNA PROBE ORD ERABLES Final Result [facility] [address] [place] [address] * PORTABLE CHEST 1 VIEW (02/08/2018 20:24 EDT) Anatomical Region Laterality Modality Other 02/08/2018 20:2 4 EDT 02/08/2018 20:39 EDT Narrative 02/08/2018 20:39 EDT PORTABLE CHEST 1 VIEW ??02/08/2018 8:24 PM Clinical History/Comments: fever cough Comparison: Chest radiographs dated June 01, 2017; May 04, 2017; April 10, 2017; and July 17, 2015. Findings: Single portable AP view of the chest obtained 70 degrees up show no focal or coalescent airspace opacity. There are a few small platelike atelectasis in the left mid/lower lung zone. The cardiac silhouette and pulmonary vascularity are within normal limits. There is a slight prominence of the interstitial lung markings which appears not significantly changed when compare with prior radiographs. No visible pleural effusion or pneumothorax, however neither can be excluded on this semiupright radiograph. Osseous structures are grossly unremarkable for age. Procedure Note Nahun Castellano MD - 02/08/2018 PORTABLE CHEST 1 VIEW 02/08/2018 8:24 PM Clinical History/Comments: fever cough Comparison: Chest radiographs dated June 01, 2017; May 04, 2017; April 10, 2017; and July 17, 2015. Findings: Single portable AP view of the chest obtained 70 degrees up show no focal or coalescent airspace opacity. There are a few small platelike atelectasis in the left mid/lower lung zone. The cardiac silhouette and pulmonary vascularity are within normal limits. There is a slight prominence of the interstitial lung markings which appears not significantly changed when compare with prior radiographs. No visible pleural effusion or pneumothorax, however neither can be excluded on this semiupright radiograph. Osseous structures are grossly unremarkable for age. us Adrienne Dickens MD IMG DIAGNOSTIC IMAGING ORDERABLES Final Result * RESPIRATORY VIRUS DETECTION (02/08/2018 20:12 EDT) Result No RSV, Influenza A, or Influenza B detected by PCR 02/08/2018 20:53 EDT [facility] NASOPHARYNGEAL STRUCTURE / Unknown 02/08/2018 20:12 EDT 02/08/2018 20:16 EDT us Josh Sanches MD MICROBIOLOGY - GENERAL O RDERABLES Final Result [facility] [address] [place] [address] * EKG 12-LEAD (02/08/2018 19:26 EDT) 02/08/2018 19:2 6 EDT Narrative [facility] EKG - 02/10/2018 10:41 EDT ?[facility] Emergency ? Test Date: ?2018-02-08 Pat Name: ? PHYLISS BOOTHE ?Department: ?? ED ? Room: ? Gender: ? 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 [id number] : ?1960 ? Requested By: JUANCARLOS PARNELL B Order Number: [id number] ? Reading MD: ?? SERENE DIOP MD ? Measurements Intervals ?[place] ? Rate: ? 88 ? P: ?39 ID: ? [id number] ?QRS: ?53 QRSD: ? 89 ? T: ?32 QT: ? 356 ? QTc: ?433 ? Interpretive Statements SINUS RHYTHM MILD NONSPECIFIC T-WAVE ABNORMALITY Compared to ECG 09/20/2017 00:40:40 No significant change I reviewed the tracing and have either agreed or edited the findings in this report. Electronically Signed On 02-10-18 10:41:03 EDT by SERENE DIOP MD. Procedure Note Serene Diop MD - 02/10/[address] [facility] Emergency Test Date: 2018-02-08 Pat Name: TARA BOOTHE Department: ED Room: Gender: F Plastic Sheets Finishing Supervisor: [id number] : 1960 Requested By: JUANCARLOS Rodriguez Order Number: [id number] Reading MD: SERENE DIOP MD Measurements Intervals [place] Rate: 88 P: 39 ID: [id number] QRS: 53 QRSD: 89 T: 32 QT: 356 QTc: 433 Interpretive Statements SINUS RHYTHM MILD NONSPECIFIC T-WAVE ABNORMALITY Compared to ECG 09/20/2017 00:40:40 No significant change I reviewed the tracing and have either agreed or edited the findings inthis report. Electronically Signed On 02-10-18 10:41:03 EDT by SERENE SKINNER. us Adrienne Dickens MD CARDIAC ECG ORDERABLES Final Result [facility] EKG documented in this encounter Visit Diagnoses Diagnosis Pain of upper abdomen- Primary Abdominal pain, other specified site documented in this encounter Administered Medications Inactive Administered Medications - up to 3 most recent administrations Medication Order MAR Action Action Date Dose Rate Site ondansetron (PF) (ZOFRAN) injection 4 mg 4 mg, intravenous, NOW X1, 1 dose, On 02/08/18 at 2014, STAT Given 02/08/2018 20:53 EDT 4 mg ondansetron (PF) (ZOFRAN) injection 4 mg 4 mg, intravenous, NOW X1, 1 dose, On Tue02/08/18 at 2215, STAT Given 02/08/2018 22:11 EDT 4 mg oxyCODONE (ROXICODONE) immediate release tablet 5 mg 5 mg, oral, NOW X1, 1 dose, On Tue02/08/18 at 2215, STAT Given 02/08/2018 22:11 EDT 5 mg sodium chloride 0.9 % BOLUS 1,000 mL 1,000 mL, intravenous, Once (Without Time Specified), 1 dose, Starting on Tue02/08/18 at 2011, Until Tue02/08/18 at 223, STAT New Bag 02/08/2018 20:57 EDT 1,000 mL documented in this encounter Active and Recently Administered Medications Times are shown in EDT. Scheduled Medication Order 02/06/2018 02/07/2018 02/08/2018 ondansetron (PF) (ZOFRAN) injection 4 mg (COMPLETED) 4 mg, intravenous, NOW X1, 1 dose, On Tue02/08/18 at 2015, STAT 2052 (Given - Provid er: Ember Chew RN) ondansetron (PF) (ZOFRAN) injection 4 mg (COMPLETED) 4 mg, intravenous, NOW X1, 1 dose, On Tue02/08/18 at 2215, STAT 2210 (Given - Provid er: Ahsan Blas RN) oxyCODONE (ROXICODONE) immediate release tablet 5 mg (COMPLETED) 5 mg, oral, NOW X1, 1 dose, On Tue02/08/18 at 2215, STAT 2210 (Given - Provid er: Ahsan Blas RN) sodium chloride 0.9 % BOLUS 1,000 mL (COMPLETED) 1,000 mL, intravenous, Once (Without Time Specified), 1 dose, Starting on Tue02/08/18 at 2011, Until Tue02/08/18 at 2236, STAT 2056 (New Bag - Prov ider: Ember Chew RN)2236 (Completed - Provider: Ahsan Blas RN) documented in this encounter Orders Nursing Count Last Ordered Date First Orde red Date INSERT PERIPHERAL IV 1 02/08/2018 documented in this encounter Care Teams Outside Plant Field Engineer Relationship Specialty Start Date End Date Naty Evans MD [address] [place] [address] MARIANA GOMEZ [phone] PCP - Alternate 09/30/17 04/11/19 Segundo Weems MD [address] [place] [address] MARIANA GOMEZ [phone] PCP - General 02/08/18 07/28/18 documented as of this encounter
--- OUTSIDE RECORDS SUMMARY | 2024-11-22 17:27 | XMS_ITS | Encounter Summary ---
Author Organization [facility] Address [address] [place] [address] Care Team Providers Care Game Advisor Name Role Phone Naty Evans MD Unavailable Segundo Weems MD Primary Care Provider [phone] Reason for Visit * Reason Onset Date Comments Results 05/08/2018 Encounter Details Date Type Department Care Team (Late st Contact Info) Description 05/08/2018 Telephone [facility] Gastroenterology - [address] [address] Micheal Moseley MD PhD 111 [facility], [facility] [address] [place] [address] Results Social History Tobacco Use [...] Answer Entry Date Author No 03/03/2018 9:28 Idnerjit Radford RN documented in this encounter Miscellaneous Notes * Telephone Encounter - Kimberley Spring RN - 05/08/2018 [address] information from Dr Moseley. 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 * Telephone Encounter - Kimberley Spring RN - 05/08/2018 1109 EDT Read letter to patient from Dr Moseley dated 05/04/18. 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 * Telephone Encounter - Laura Argueta - 05/08/2018 1056 EDT Ultrasound documented in this encounter Plan of Treatment Upcoming Encounters Date Type Department Care Team (Late st Contact Info) Description 01/04/2025 13:00 EST Office Visit [facility] Ophthalmology - [address] [phone] Gagandeep Rome MD 111 [facility], Level [address] [place] [phone] 02/11/2025 13:30 EDT Telemedicine [facility] Hematology & Oncology - [address] [phone] Dana Padilla MD [address] [place] [address], [address] [place] [phone] documented as of this encounter Visit Diagnoses Not on filedocumented in this encounter Care Teams Game Advisor Relationship Specialty Start Date End Date Naty Evans MD [address] [place] [address] [place] [phone] PCP - Alternate 09/30/17 04/11/19 Segundo Weems MD [address] [place] [address] [place] [phone] PCP - General 02/08/18 07/28/18 documented as of this encounter
--- OUTSIDE RECORDS SUMMARY | 2024-11-22 17:27 | XMS_ITS | Encounter Summary ---
Author Organization [facility] Address [address] [place] [address] Care Team Providers Care Airport Operations Duty Manager Name Role Phone Naty Evans MD Unavailable Segundo Weems MD Primary Care Provider [phone] Encounter Details Date Type Department Care Team (Late st Contact Info) Description 05/19/2018 Results Only [facility] [phone] Segundo Weems MD [address] [place] [address] Social History Tobacco Use Types [...] Office Visit [facility] Ophthalmology - [address] [phone] Gagandeep Rome MD [address] [place] [address] 5 [place] [address] 02/11/2025 13:30 EDT Telemedicine [facility] Hematology & Oncology [address] [phone] Dana Padilla MD [address] [place] [address], [address] [place] [address] documented as of this encounter Procedures Procedure Name Priority Date/Time Associated Diagnosis Comments T4 FREE Routine 05/19/2018 9:54 EDT documented in this encounter Results * T4 FREE (05/19/2018 9:54 EDT) T4, Free 0.9 0.8 - 2.2 ng/dl 05/19/2018 20:26 EDT [facility] BLOOD SPECIMEN / Unknown 05/19/2018 9:54 EDT 05/19/2018 19:49 EDT us Segundo Weems MD CHEMISTRY & BLOOD GAS ORDERAB LES Final Result [facility] [address] [place] [address] documented in this encounter Visit Diagnoses Not on filedocumented in this encounter Care Teams Airport Operations Duty Manager Relationship Specialty Start Date End Date Naty Evans MD [address] [place] [address] MARIANA GOMEZ [phone] PCP - Alternate 09/30/17 04/11/19 Segundo Weems MD [address] [place] [address] MARIANA GOMEZ [phone] PCP - General 02/08/18 07/28/18 documented as of this encounter
--- OUTSIDE RECORDS SUMMARY | 2024-11-22 17:27 | XMS_ITS | Encounter Summary ---
Author Organization [facility] Address [address] [place] [address] Care Team Providers Care Clerical Aide Name Role Phone Naty Evans MD Unavailable Segundo Weems MD Primary Care Provider [phone] Encounter Details Date Type Department Care Team (Late st Contact Info) Description 03/03/2018 Phlebotomy Only [facility] [address] [place] [address] Scrap Drop Crane Operator, Outpatient Cirrhosis of liver without ascites, unspecified hepatic cirrhosis type (HCC-CMS) (Primary Dx) Social History Tobacco Use [...] [facility] Ophthalmology - [address] [phone] Gagandeep Rome MD [address] [place] [address] [address] [place] [phone] 02/11/2025 13:30 EDT Telemedicine [facility] Hematology & Oncology [address] [phone] Dana Padilla MD [address] [place] [address] 2 [place] [phone] documented as of this encounter Procedures Procedure Name Priority Date/Time Associated Diagnosis Comments HEPATITIS A TOTAL ANTIBODY W REFLEX Routine 03/03/2018 10:15 EDT Cirrhosis of liver without ascites, unspecified hepatic cirrhosis type (HCC-CMS) HEPATITIS B CORE ANTIBODY (TOTAL) Routine 03/03/2018 10:15 EDT Cirrhosis of liver without ascites, unspecified hepatic cirrhosis type (HCC-CMS) HEPATITIS B SURFACE ANTIBODY Routine 03/03/2018 10:15 EDT Cirrhosis of liver without ascites, unspecified hepatic cirrhosis type (HCC-CMS) documented in this encounter Results * (ABNORMAL) HEPATITIS A TOTAL ANTIBODY W REFLEX (03/03/2018 10:15 EDT) Hep A Total Antibody w Reflex Positive(A ) Negative 03/03/2018 13:40 EDT [facility] Comment:Antibody to Hepatiti s A detected. Blood specimen (specimen) BLOOD SPECIMEN / Unknown 03/03/2018 10:15 EDT 03/03/2018 10:57 EDT Micheal Moseley MD PhD CHEMISTRY & BLOOD GAS O RDERABLES Final Result Performing Organization Address [facility] de Phone Number [facility] [address] [place] [address] * HEPATITIS B SURFACE ANTIBODY (03/03/2018 10:15 EDT) Pathologist [facility] Hepatitis B Surface Antibody, Qualitative Positive 03/03/2018 13:36 EDT [facility] Comment: Reference Range: Unvaccinated: ??Negative Vaccinated: ??Positive Patient is presumed to be immune to infection with HBV. Hepatitis B Antibody, Quantitative 12.0 mIU/mL 03/03/2018 13:36 EDT [facility] Comment: Reference Range: Positive: ??>=10.0 mIU/mL Negative: ??<10.0 mIU/mL Patient is presumed to be immune to infection with HBV. Blood specimen (specimen) BLOOD SPECIMEN / Unknown 03/03/2018 10:15 EDT 03/03/2018 10:57 EDT us Micheal Moseley MD PhD CHEMISTRY & BLOOD GAS O RDERABLES Final Result Performing Organization Address [facility] Co de Phone Number [facility] [address] [place] [address] * HEPATITIS B CORE ANTIBODY (TOTAL) (03/03/2018 10:15 EDT) Hepatitis B Core Antibody Negative Negative 03/03/2018 13:41 EDT [facility] Blood specimen (specimen) BLOOD SPECIMEN / Unknown 03/03/2018 10:15 EDT 03/03/2018 10:57 EDT us Micheal Moseley MD PhD CHEMISTRY & BLOOD GAS O RDERABLES Final Result [facility] [address] [place] [address] documented in this encounter Visit Diagnoses Diagnosis Cirrhosis of liver without ascites, unspecified hepatic cirrhosis type (HCC-CMS)- Primary documented in this encounter Care Teams Clerical Aide Relationship Specialty Start Date End Date Naty Evans MD [address] [place] [address] MARIANA GOMEZ [phone] PCP - Alternate 09/30/17 04/11/19 Segundo Weems MD [address] [place] [address] MARIANA GOMEZ [phone] PCP - General 02/08/18 07/28/18 documented as of this encounter
--- OUTSIDE RECORDS SUMMARY | 2024-11-22 17:27 | XMS_ITS | Encounter Summary ---
Author Organization [facility] Address [address] [place] [address] Care Team Providers Care Senior Asic Design Engineer Name Role Phone Naty Evans MD Unavailable Segundo Weems MD Primary Care Provider [phone] Encounter Details Date Type Department Care Team (Late st Contact Info) Description 02/13/2018 Orders Only [facility] Cancer Center Hematology & Oncology - Main [place] [address] [place] [address] Arlette Damon, KENN [address] [place] [address] Social History Tobacco Use Types Packs/Day Years [...] of Assessment Author Yes 08/24/2017 23:43 Inderjit Radford, RN * Do you have serious difficulty [...] [facility] Ophthalmology - [address] [phone] Gagandeep Rome MD [address] [place] [address] 5 [place] [address] 02/11/2025 13:30 EDT Telemedicine [facility] Hematology & Oncology [address] [phone] Dana Padilla MD [address] [place] [address], [facility] [address] [place] [address] documented as of this encounter Visit Diagnoses Not on filedocumented in this encounter Care Teams Senior Asic Design Engineer Relationship Specialty Start Date End Date Naty Evans MD [address] [place] [address] [place] [phone] PCP - Alternate 09/30/17 04/11/19 Segundo Weems MD [address] [place] [address] MARIANA GOMEZ [phone] PCP - General 02/08/18 07/28/18 documented as of this encounter
--- OUTSIDE RECORDS SUMMARY | 2024-11-22 17:27 | XMS_ITS | Encounter Summary ---
Author Organization [facility] Address [address] [place] [address] Care Team Providers Care Drilling Engineer Name Role Phone Hardik Viramontes MD Primary Care Provider [phone] Naty Evans MD Unavailable Reason for Visit * Reason Onset Date Comments No Show 01/23/2018 Encounter Details Date Type Department Care Team (Late st Contact Info) Description 01/23/2018 Telephone [facility] Adult Primary Care - [address] [address] Hardik Viramontes MD 1 [facility] Level [address] [place] [address] No Show Social History Tobacco Use Types [...] encounter Miscellaneous Notes * Telephone Encounter - Olivia Rene - 01/24/2018 0855 EST This is patient's first no show. Call to patient. Left message on voicemail inviting patient to call back to reschedule if desired. * Telephone Encounter - Supriya Wheat - 01/23/2018 1258 EST Patient No Showed appointment today with Dr Pitts documented in this encounter Plan of Treatment Upcoming Encounters Date Type Department Care Team (Late st Contact Info) Description 01/04/2025 13:00 EST Office Visit [facility] Ophthalmology - [address] [phone] Gagandeep Rome MD 111 [facility], Level [address] [place] [phone] 02/11/2025 13:30 EDT Telemedicine [facility] Cancer Center Hematology & Oncology - [facility] [address], [place] [address] Dana Padilla MD 111 [facility] 2 [place] [phone] documented as of this encounter Visit Diagnoses Not on filedocumented in this encounter Care Teams Drilling Engineer Relationship Specialty Start Date End Date Hardik Viramontes MD [address] [place] [address] [address] [place] [phone] PCP - General 09/30/17 02/07/18 Naty Evans MD [address] [place] [address] [place] [phone] PCP - Alternate 09/30/17 04/11/19 documented as of this encounter
--- OUTSIDE RECORDS SUMMARY | 2024-11-22 17:27 | XMS_ITS | Encounter Summary ---
Author Organization [facility] Address [address] [place] [address] Care Team Providers Care Director Of Student Financial Aid Name Role Phone Naty Evans MD Unavailable Segundo Weems MD Primary Care Provider [phone] Encounter Details Date Type Department Care Team (Late st Contact Info) Description 04/12/2018 Results Only Imaging [facility] Gastroenterology - [address] [phone] Micheal Moseley MD PhD 111 [facility], Level 5 [place] [address] Social History Tobacco Use Types [...] Visit [facility] Ophthalmology [address] [phone] Gagandeep Rome MD [address] [place] [address], [facility] 5 [place] [phone] 02/11/2025 13:30 EDT Telemedicine [facility] Hematology & Oncology [address] [phone] Dana Padilla MD [address] [place] [address], [facility] 2 [place] [address] documented as of this encounter Visit Diagnoses Not on filedocumented in this encounter Care Teams Director Of Student Financial Aid Relationship Specialty Start Date End Date Naty Evans MD [address] [place] [address] [place] [phone] PCP - Alternate 09/30/17 04/11/19 Segundo Weems MD [address] [place] [address] [place], [place] [phone] PCP - General 02/08/18 07/28/18 documented as of this encounter
--- OUTSIDE RECORDS SUMMARY | 2024-11-22 17:27 | XMS_ITS | Encounter Summary ---
Author Organization [facility] Address [address] [place] [address] Care Team Providers Care Clinical Field Specialist Name Role Phone Hardik Viramontes MD Primary Care Provider [phone] Naty Evans MD Unavailable Reason for Visit * Reason Onset Date Comments Appointment Related 10/07/2017 CT urogram/ Cystoscopy and Sherin Ortez CX Appointment Related 10/07/2017 RESCHEDULED Encounter Details Date Type Department Care Team (Late st Contact Info) Description 10/07/2017 Telephone [facility] Urology - [address] [phone] Lon Ortez MD 111 [facility], Level 5 [place] [address] Appointment Related (CT urogram/ Cystoscopy and Sherin Ortez CX ); Appointment Related (RESCHEDULED) Social History Tobacco Use Types Packs/Day Years [...] encounter Miscellaneous Notes * Telephone Encounter - Goldie Camara - 10/07/2017 09 EST Left message w/ pt regarding new scheduled appt CTU on 11/07 and appt w/ on 11/08 * Telephone Encounter - Aris Youngblood - 10/07/2017 09 EST Patient is sick with a cold and she is going out of town for the holiday and can not make her CT scan and or cystoscopy And Fur with Dr. Ortez scheduled for 10.10.17 . She would like a call to reschedule . documented in this encounter Plan of Treatment Upcoming Encounters Date Type Department Care Team (Late st Contact Info) Description 01/04/2025 13:00 EST Office Visit [facility] Ophthalmology - [address] [id number] Gagandeep Rome MD [address] [place] [address], [facility] 5 [place] [phone] 02/11/2025 13:30 EDT Telemedicine [facility] Hematology & Oncology - [address] [phone] Dana Padilla MD [address] [place] [address], Level 2 [place] [address] documented as of this encounter Visit Diagnoses Not on filedocumented in this encounter Care Teams Clinical Field Specialist Relationship Specialty Start Date End Date Hardik Viramontes MD [address] [place] [address] 1 [place] [address] PCP - General 09/30/17 02/07/18 Naty Evans MD [address] [place] [address] MAR[place] GOMEZ [phone] PCP - Alternate 09/30/17 04/11/19 documented as of this encounter
--- OUTSIDE RECORDS SUMMARY | 2024-11-22 17:27 | XMS_ITS | Encounter Summary ---
Author Organization [facility] Address [address] [place] [address] Care Team Providers Care Home Organizer Name Role Phone Naty Evans MD Unavailable Segundo Weems MD Primary Care Provider [phone] Encounter Details Date Type Department Care Team (Late st Contact Info) Description 05/04/2018 Results Only Imaging [facility] Gastroenterology - [address] [phone] Micheal Moseley MD PhD 111 [facility], Level 5 [place] [address] Social History Tobacco Use Types [...] Office Visit [facility] Ophthalmology - [address] [phone] Gagandeep Rome MD [address] [place] [address], [facility] 5 [place] [phone] 02/11/2025 13:30 EDT Telemedicine [facility] Hematology & Oncology [address] [phone] Dana Padilla MD [address] [place] [address], [facility] 2 [place] [address] documented as of this encounter Procedures Procedure Name Priority Date/Time Associated Diagnosis Comments RAD US ABDOMEN ONE ORGAN/QUADRANT 05/04/2018 8:13 EDT documented in this encounter Results * RAD US ABDOMEN ONE ORGAN/QUADRANT (05/04/2018 8:13 EDT) Anatomical Region Laterality Modality Other 05/04/2018 8:13 EDT 05/04/2018 9:37 EDT Narrative 05/04/2018 9:37 EDT RAD US ABDOMEN ONE ORGAN/QUADRANT ??05/04/2018 8:13 AM SIGNS AND SYMPTOMS/COMMENTS: ??K74.60-Unspecified cirrhosis of liver (HCC-CMS)-ICD-10; Hepatic Cirrhosis, evaluate for liver mass COMPARISONS: ??CT abdomen dated August 24, 2017. TECHNIQUE: Grayscale and color Doppler Ultrasound images of the Right Upper Quadrant were obtained. FINDINGS: PANCREAS: ??Head and uncinate process: Not well seen ??Body and Tail: Unremarkable LIVER: ??Size: Normal, measuring 14.7 cm ??Echogenicity: ??The liver demonstrates a heterogeneous echotexture. ??Surface: The liver surface demostrates increased nodularity. ??Lesions: None identified. RIGHT KIDNEY: ?? Echogenicity: ??Normal. ?? Size: ??10.2 cm ?? Hydronephrosis: None. ?? Lesions: None. GALLBLADDER: The gallbladder surgically absent. BILE DUCTS: ??Intrahepatic biliary tree: The intrahepatic biliary tree is normal in caliber. ??Common bile duct: 7.3 mm , which is normal postcholecystectomy. SPLEEN: The spleen is enlarged measuring 12.2 x 18.3 x 8.9 cm for a volume of 1031 mL. No lesion is identified. ABDOMINAL AORTA and IVC: ?? Visualized portions are unremarkable. A markedly dilated portal and splenic vein are again seen with echogenic thrombus noted in the distal splenic vein, best seen on cinematic imaging A:13. IMPRESSION: 1. Cirrhosis with portal hypertension and splenomegaly, no hepatic lesion identified. 2. 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 I have personally reviewed the images and the above interpretation and agree with the findings. Procedure Note Brandy Zhao MD - 05/04/2018 RAD US ABDOMEN ONE ORGAN/QUADRANT 05/04/2018 8:13 AM SIGNS AND SYMPTOMS/COMMENTS: K74.60-Unspecified cirrhosis of liver (HCC-CMS)-ICD-10; Hepatic Cirrhosis, evaluate for liver mass COMPARISONS: CT abdomen dated August 24, 2017. TECHNIQUE: Grayscale and color Doppler Ultrasound images of the Right Upper Quadrant were obtained. FINDINGS: PANCREAS: Head and uncinate process: Not well seen Body and Tail: Unremarkable LIVER: Size: Normal, measuring 14.7 cm Echogenicity: The liver demonstrates a heterogeneous echotexture. Surface: The liver surface demostrates increased nodularity. Lesions: None identified. RIGHT KIDNEY: Echogenicity: Normal. Size: 10.2 cm Hydronephrosis: None. Lesions: None. GALLBLADDER: The gallbladder surgically absent. BILE DUCTS: Intrahepatic biliary tree: The intrahepatic biliary tree is normal in caliber. Common bile duct: 7.3 mm , which is normal postcholecystectomy. SPLEEN: The spleen is enlarged measuring 12.2 x 18.3 x 8.9 cm for a volume of 1031 mL. No lesion is identified. ABDOMINAL AORTA and IVC: Visualized portions are unremarkable. A markedly dilated portal and splenic vein are again seen with echogenic thrombus noted in the distal splenic vein, best seen on cinematic imaging A:13. IMPRESSION: 1. Cirrhosis with portal hypertension and splenomegaly, no hepatic lesion identified. 2. 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 I have personally reviewed the images and the above interpretation and agree with the findings. us Micheal Moseley MD PhD IMG US ORDERABLES Final Result documented in this encounter Visit Diagnoses Not on filedocumented in this encounter Care Teams Home Organizer Relationship Specialty Start Date End Date Naty Evans MD [address] [place] [address] [place] [phone] PCP - Alternate 09/30/17 04/11/19 Segundo Weems MD [address] [place] [address] [place] [phone] PCP - General 02/08/18 07/28/18 documented as of this encounter
--- OUTSIDE RECORDS SUMMARY | 2024-11-22 17:27 | XMS_ITS | Encounter Summary ---
Author Organization [facility] Address [address] [place] [address] Care Team Providers Care Weatherization Coordinator Name Role Phone Hardik Viramontes MD Primary Care Provider [phone] Naty Evans MD Unavailable Encounter Details Date Type Department Care Team (Latest Contact Info) Description 01/03/2018 9:51 EST - 01/03/2018 23:59 EST Hospital Encounter [address] [address] Ijeoma Smith MD [address] [place] [address] [place] [address] Discharge Disposition: Home or Self Care Social [...] documented in this encounter Discharge Diagnoses Diagnosis K75.81 Nonalcoholic steatohepatitis (QUIROZ)-K75.81[ICD-10-CM] K74.60 Unspecified cirrhosis of liver-K74.60[ICD-10-CM] documented in [...] or Self Fdc documented in this encounter Plan of Treatment Upcoming Encounters Date Type Department Care Team (Late st Contact Info) Description 01/04/2025 13:00 EST Office Visit [facility] Ophthalmology - [address] [phone] Gagandeep Rome MD [address] [place] [address] 5 [place] [phone] 02/11/2025 13:30 EDT Telemedicine [facility] Hematology & Oncology [address] [phone] Dana Padilla MD [address] [place] [address] 2 [place] [address] documented as of this encounter Visit Diagnoses Not on filedocumented in this encounter Care Teams Weatherization Coordinator Relationship Specialty Start Date End Date Hardik Viramontes MD 1 [facility] 1 [place] [phone] PCP - General 09/30/17 02/07/18 Naty Evans MD [address] [place] [address] [place], [place] [phone] PCP - Alternate 09/30/17 04/11/19 documented as of this encounter
--- OUTSIDE RECORDS SUMMARY | 2024-11-22 17:27 | XMS_ITS | Encounter Summary ---
Author Organization [facility] Address [address] [place] [address] Care Team Providers Care Automobile Mechanic Supervisor Name Role Phone Naty Evans MD Unavailable Segundo Weems MD Primary Care Provider Encounter Details Date Type Department Care Team (Latest Contact Info) Description 02/08/2018 14:37 EDT - 02/08/2018 14:38 EDT Hospital Encounter [address] [phone] Segundo Weems MD [address] [place] [address] Discharge Disposition: Home or Self [...] Office Visit [facility] Ophthalmology - [address] [phone] Gagandeep Rome MD [address] [place] [address], [facility] 5 [place] [phone] 02/11/2025 13:30 EDT Telemedicine [facility] Hematology & Oncology [address] [phone] Dana Padilla MD [address] [place] [address], [facility] 2 [place] [phone] documented as of this encounter Visit Diagnoses Not on filedocumented in this encounter Care Teams Automobile Mechanic Supervisor Relationship Specialty Start Date End Date Naty Evans MD [address] [place] [address] [place] [phone] PCP - Alternate 09/30/17 04/11/19 Segundo Weems MD [address] [place] [address] [place] [phone] PCP - General 02/08/18 07/28/18 documented as of this encounter
--- OUTSIDE RECORDS SUMMARY | 2024-11-22 17:27 | XMS_ITS | Encounter Summary ---
Author Organization [facility] Address [address] [place] [address] Care Team Providers Care Single Needle Operator Name Role Phone Naty Evans MD Unavailable Segundo Weems MD Primary Care Provider [phone] Encounter Details Date Type Department Care Team (Late st Contact Info) Description 03/03/2018 Results Only [facility] Gastroenterology - [address] [phone] Micheal Moseley MD PhD 111 [facility], Level 5 [place] [address] Social History Tobacco Use Types [...] Description 01/04/2025 13:00 EST Office Visit [facility] Ophthalmology - [address] [phone] Gagandeep Rome MD [address] [place] [address] 5 [place] [phone] 02/11/2025 13:30 EDT Telemedicine [facility] Hematology & Oncology [address] [phone] Dana Padilla MD [address] [place] [address], [facility] 2 [place] [address] documented as of this encounter Procedures Procedure Name Priority Date/Time Associated Diagnosis Comments HEPATITIS A ANTIBODY IGM Routine 03/03/2018 10:15 EDT documented in this encounter Results * HEPATITIS A ANTIBODY IGM (03/03/2018 10:15 EDT) Hep A Antibody IgM Negative Negative 03/03/2018 15:06 EDT [facility] BLOOD SPECIMEN / Unknown 03/03/2018 10:15 EDT 03/03/2018 10:57 EDT us Micheal Moseley MD PhD CHEMISTRY & BLOOD GAS O RDERABLES Final Result [facility] [address] [place] [address] documented in this encounter Visit Diagnoses Not on filedocumented in this encounter Care Teams Single Needle Operator Relationship Specialty Start Date End Date Naty Evans MD [address] [place] [address] [place] GOMEZ [phone] PCP - Alternate 09/30/17 04/11/19 Segundo Weems MD [address] [place] [address] [place] [phone] PCP - General 02/08/18 07/28/18 documented as of this encounter
--- OUTSIDE RECORDS SUMMARY | 2024-11-22 17:27 | XMS_ITS | Encounter Summary ---
Author Organization [facility] Address [address] [place] [address] Care Team Providers Care Desizing Machine Operator Name Role Phone Naty Evans MD Unavailable Segundo Weems MD Primary Care Provider [phone] Encounter Details Date Type Department Care Team (Late st Contact Info) Description 05/04/2018 7:37 EDT - 05/04/2018 23:59 EDT Hospital Encounter [facility] [address] [place] [address] Micheal Moseley MD PhD 111 [facility], [facility] 5 [place] [address] Discharge Disposition: Auto Discharge Social History Tobacco [...] Description 01/04/2025 13:00 EST Office Visit [facility] Ophthalmology - [address] [phone] Gagandeep Rome MD [address] [place] [address] 5 [place] [phone] 02/11/2025 13:30 EDT Telemedicine [facility] Hematology & Oncology [address] [phone] Dana Padilla MD [address] [place] [address], [facility] 2 [place] [address] documented as of this encounter Visit Diagnoses Not on filedocumented in this encounter Care Teams Desizing Machine Operator Relationship Specialty Start Date End Date Naty Evans MD [address] [place] [address] [place] [address] PCP - Alternate 09/30/17 04/11/19 Segundo Weems MD [address] [place] [address] [place] [phone] PCP - General 02/08/18 07/28/18 documented as of this encounter
--- OUTSIDE RECORDS SUMMARY | 2024-11-22 17:27 | XMS_ITS | Encounter Summary ---
Author Organization [facility] Address [address] [place] [address] Care Team Providers Care Sheriff Sergeant Name Role Phone Hardik Viramontes MD Primary Care Provider [phone] Naty Evans MD Unavailable Encounter Details Date Type Department Care Team (Late st Contact Info) Description 01/03/2018 Phlebotomy Only [facility] [address] [place] [address] Bed Rubber, Outpatient 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 (CMS-HCC) (HCC-CMS) (Primary Dx) Social History Tobacco Use [...] [facility] Ophthalmology - [address] [phone] Gagandeep Rome MD [address] [place] [address] 5 [place] [phone] 02/11/2025 13:30 EDT Telemedicine [facility] Hematology & Oncology [address] [phone] Dana Padilla MD [address] [place] [address] 2 [place] [phone] documented as of this encounter Procedures Procedure Name Priority Date/Time Associated Diagnosis Comments PROTIME Routine 01/03/2018 10:00 EST 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 (CMS-HCC) (HCC-CMS) COMPLETE BLOOD COUNT AND DIFFERENTIAL Routine 01/03/2018 10:00 EST 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 (CMS-HCC) (HCC-CMS) COMPREHENSIVE METABOLIC PANEL (CMP) Routine 01/03/2018 10:00 EST 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 (CMS-HCC) (HCC-CMS) documented in this encounter Results * (ABNORMAL) HEMAGRAM AND DIFFERENTIAL (01/03/2018 10:00 EST) WBC 1.17(L) 4.0 - 12.4 K/cmm 01/03/2018 11:09 [facility] RBC 4.09 3.86 - 5.04 M/cmm 01/03/2018 11:09 [facility] Hemoglobin 11.3(L) 11.6 - 15.2 gm/dl 01/03/2018 11:09 [facility] HCT 34.4(L) 34.9 - 44.4 % 01/03/2018 11:09 [facility] MCV 84 81 - 98 fl 01/03/2018 11:09 [facility] MCH 27.6 26.7 - 33.3 pg 01/03/2018 11:09 [facility] MCHC 32.8 32.1 - 35.9 gm/dl 01/03/2018 11:09 [facility] RDW-CV 14.8(H) <14.7 % 01/03/2018 11:09 [facility] RDW-SD 45.1 <50.4 fl 01/03/2018 11:09 [facility] PLT 41(L) 141 - 377 K/cmm 01/03/2018 11:09 [facility] MPV 10.4 9.5 - 12.7 fl 01/03/2018 11:09 [facility] % Neutrophils 72.7 % 01/03/2018 11:09 [facility] % Lymphocytes 16.2 % 01/03/2018 11:09 [facility] % Monocytes 9.4 % 01/03/2018 11:09 [facility] % Eosinophils 1.7 % 01/03/2018 11:09 [facility] % Basophils 0.0 % 01/03/2018 11:09 [facility] % Immature Grans 0.0 % 01/03/2018 11:09 [facility] ABS Neutrophils 0.85(L) 2.20 - 8.85 K/cmm 01/03/2018 11:09 [facility] ABS Lymphs 0.19(L) 1.09 - 3.30 K/cmm 01/03/2018 11:09 [facility] ABS Monocytes 0.11 0.1 - 0.8 K/cmm 01/03/2018 11:09 [facility] ABS Eosinophils 0.02(L) 0.03 - 0.61 K/cmm 01/03/2018 11:09 [facility] ABS Basophils 0.00(L) 0.01 - 0.11 K/cmm 01/03/2018 11:09 [facility] ABS Immature Grans 0.00 0 - 0.06 K/cmm 01/03/2018 11:09 [facility] Type of Diff: Automated 01/03/2018 11:09 [facility] Blood specimen (specimen) BLOOD SPECIMEN / Unknown 01/03/2018 10:00 EST 01/03/2018 10:48 EST us Ijeoma Smith MD PACKAGES & DNA PROBE ORDERABLES Final Result Performing Organization Address City/State/[facility] Co de Phone Number [facility] [address] [place] [address] * (ABNORMAL) COMPREHENSIVE METABOLIC PANEL (CMP) (01/03/2018 10:00 EST) Potassium 4.0 3.5 - 5.0 mEq/L 01/03/2018 11:40 [facility] Sodium 143 136 - 145 mEq/L 01/03/2018 11:40 [facility] Chloride 107 96 - 110 mEq/L 01/03/2018 11:40 [facility] CO2 27 22 - 32 mEq/L 01/03/2018 11:40 [facility] Total Alkaline Phosphatase 76 38 - 126 U/L 01/03/2018 11:40 [facility] Bilirubin, Total <0.5 <1.4 mg/dl 01/03/20 18 11:40 [facility] AST 17 15 - 46 U/L 01/03/2018 11:40 [facility] ALT 27 <53 U/L 01/03/2018 11:40 [facility] Albumin 3.7 3.4 - 4.9 g/dl 01/03/2018 11:40 [facility] Total Protein 6.6 6.3 - 8.2 g/dl 01/03/2018 11:40 [facility] Creatinine 0.85 0.52 - 1.04 mg/dl 01/03/2018 11:40 [facility] GFR, Calculated 76 >60 ml/min/1.7 3m2 01/03/2018 11:40 [facility] Comment: eGFR calculated using CKD-EPI equation for non Americans. Multiply eGFR by 1.16 for Americans. BUN 13 10 - 26 mg/dl 01/03/2018 11:40 [facility] Calcium 8.9 8.5 - 10.5 mg/dl 01/03/2018 11:40 [facility] Calculated Calcium 9.1 8.5 - 10.5 mg/dl 01/03/2018 11:40 [facility] Glucose, Serum 108(H) 70 - 100 mg/dl 01/03/2018 11:40 [facility] Fasting? YES 01/03/2018 9:55 [facility] Blood specimen (specimen) BLOOD SPECIMEN / Unknown 01/03/2018 10:00 EST 01/03/2018 10:48 EST us Ijeoma Smith MD CHEMISTRY & BLOOD GAS ORDERABLES Final Result [facility] [address] [place] [address] * (ABNORMAL) PROTIME (01/03/2018 10:00 EST) Pro Time 15.4(H) 10.3 - 13.4 secs 01/03/2018 11:24 [facility] Comment:NOTE NEW REFERENCE Amelia POLANCO OF DEC 22 2017 I.N.R. 1.3(H) 0.9 - 1.1 Ratio 01/03/2018 11:[address] [facility] Comment: Moderate Intensity Coumadin INR = 2.0-3.0 Adjustments in anticoagulant therapy dose should be based upon the INR and NOT the Pro Time. Blood specimen (specimen) BLOOD SPECIMEN / Unknown 01/03/2018 10:00 EST 01/03/2018 10:48 EST us Ijeoma Smith MD HEMATOLOGY & PF4 ORDERABLES Pricila l Result [facility] [address] [place] [address] documented in this encounter Visit Diagnoses Diagnosis 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 (HCC-CMS)- Primary Other chronic nonalcoholic liver disease documented in this encounter Care Teams Sheriff Sergeant Relationship Specialty Start Date End Date Hardik Viramontes MD 1 [facility] Level 1 [place] [address] PCP - General 09/30/17 02/07/18 Naty Evans MD [address] [place] [address] [place] GOMEZ [phone] PCP - Alternate 09/30/17 04/11/19 documented as of this encounter
--- OUTSIDE RECORDS SUMMARY | 2024-11-22 17:27 | XMS_ITS | Encounter Summary ---
Author Organization [facility] Address [address] [place] [address] Care Team Providers Care Supervisor [employer] Name Role Phone Naty Evans MD Unavailable Segundo Weems MD Primary Care Provider [phone] Reason for Visit * Reason Onset Date Comments Results 03/07/2018 Encounter Details Date Type Department Care Team (Late st Contact Info) Description 03/07/2018 Telephone [facility] Gastroenterology - [facility] [address] [place] [address] Micheal Moseley MD PhD [address] [facility], [facility] [address] [place] [address] Results Social History Tobacco Use [...] Miscellaneous Notes * Telephone Encounter - Glenny Miller RN - 03/07/2018 1502 EDT The patient was made aware,per , that recent blood work shows she has an immunity to HepA and Hep B and does not need vaccination. He will send her a letter with further details and result of the upcoming U/S ( 03/22/18) once results are available.She verbalized understanding and is in agreement with this plan. * Telephone Encounter - Laura Argueta - 03/07/2018 1201 EDT Saw results on line- need to clarify documented in this encounter Plan of Treatment Upcoming Encounters Date Type Department Care Team (Late st Contact Info) Description 01/04/2025 13:00 EST Office Visit [facility] Ophthalmology - [address] [address] Gagandeep Rome MD [address] [facility], Level [address] [place] [phone] 02/11/2025 13:30 EDT Telemedicine [facility] Hematology & Oncology - [address] [phone] Dana Padilla MD [address] [facility], [address] [place] [address] documented as of this encounter Visit Diagnoses Not on filedocumented in this encounter Care Teams Supervisor [employer] Relationship Specialty Start Date End Date Naty Evans MD [address] [place] [address] [place] [phone] PCP - Alternate 09/30/17 04/11/19 Segundo Weems MD [address] [place] [address] [place] [phone] PCP - General 02/08/18 07/28/18 documented as of this encounter
--- OUTSIDE RECORDS SUMMARY | 2024-11-22 17:27 | XMS_ITS | Encounter Summary ---
Author Organization [facility] Address [address] [place] [address] Care Team Providers Care Professional Programmer Analyst Name Role Phone Naty Evans MD Unavailable Segundo Weems MD Primary Care Provider [phone] Encounter Details Date Type Department Care Team (Late st Contact Info) Description 05/19/[address] [facility]- [facility] [phone] Aj Issa MD [address] [place] [address] [address] [place] [address] Social History Tobacco Use Types [...] Visit [facility] Ophthalmology - [address] [phone] Gagandeep Rome MD [address] [place] [address], [facility] [address] [place] [address] 02/11/2025 13:30 EDT Telemedicine [facility] Hematology & Oncology [address] [phone] Dana Padilla MD [address] [place] [address], [address] [place] [phone] documented as of this encounter Procedures Procedure Name Priority Date/Time Associated Diagnosis Comments COMPLETE BLOOD COUNT AND DIFFERENTIAL Routine 05/19/2018 19:32 EDT documented in this encounter Results * (ABNORMAL) COMPLETE BLOOD COUNT AND DIFFERENTIAL (05/19/2018 19:32 EDT) WBC 1.43(L) 4.0 - 12.4 K/cmm 05/20/2018 13:22 [facility] RBC 3.99 3.86 - 5.04 M/cmm 05/20/2018 13:22 [facility] Hemoglobin 11.2(L) 11.6 - 15.2 gm/dl 05/20/2018 13:22 [facility] HCT 34.0(L) 34.9 - 44.4 % 05/20/2018 13:22 [facility] MCV 85 81 - 98 fl 05/20/2018 13:22 [facility] MCH 28.1 26.7 - 33.3 pg 05/20/2018 13:22 [facility] MCHC 32.9 32.1 - 35.9 gm/dl 05/20/2018 13:22 [facility] RDW-CV 14.4 <14.7 % 05/20/2018 13:22 [facility] RDW-SD 44.4 <50.4 fl 05/20/2018 13:22 [facility] PLT 43(L) 141 - 377 K/cmm 05/20/2018 13:22 [facility] MPV 11.2 9.5 - 12.7 fl 05/20/2018 13:22 [facility] Neutrophils 62.8 % 05/20/2018 18:13 [facility] % Bands 3.5 % 05/20/2018 18:13 [facility] Lymphocytes 22.1 % 05/20/2018 18:13 [facility] Monocytes 3.6 % 05/20/2018 18:13 [facility] Eosinophils 2.7 % 05/20/2018 18:13 [facility] Basophils 1.8 % 05/20/2018 18:13 [facility] % Atyp Lymphs 3.5 % 05/20/2018 18:13 [facility] ABS Neutrophils 0.90(L) 2.20 - 8.85 K/cmm 05/20/2018 18:13 [facility] ABS Bands 0.05 K/cmm 05/20/2018 18:13 [facility] ABS Lymphs 0.32(L) 1.09 - 3.30 K/cmm 05/20/2018 18:13 [facility] ABS Monocytes 0.05(L) 0.1 - 0.8 K/cmm 05/20/2018 18:13 [facility] ABS Eosinophils 0.04 0.03 - 0.61 K/cmm 05/20/2018 18:13 [facility] ABS Basophils 0.03 0.01 - 0.11 K/cmm 05/20/2018 18:13 [facility] ABS Atyp Lymphs 0.05 K/cmm 8 18:13 [facility] Schistocytes Increased schistocytes are seen but less than 2% (1+) of the RBCs. 05/20/2018 18:13 [facility] Corbin Cells 2+ 05/20/2018 18:13 [facility] Vacuolization Present 05/20/2018 18:13 [facility] Type of Diff: Manual 05/20/2018 18:13 [facility] BLOOD SPECIMEN / Unknown 05/19/2018 19:32 EDT 05/20/2018 12:35 EDT us Aj Issa MD PACKAGES & DNA PROBE ORD ERABLES Final Result [facility] [address] [place] [phone] documented in this encounter Visit Diagnoses Not on filedocumented in this encounter Care Teams Professional Programmer Analyst Relationship Specialty Start Date End Date Naty Evans MD [address] [place] [address] [place] [phone] PCP - Alternate 09/30/17 04/11/19 Segundo Weems MD [address] [place] [address] [place] [phone] PCP - General 02/08/18 07/28/18 documented as of this encounter
--- OUTSIDE RECORDS SUMMARY | 2024-11-22 17:27 | XMS_ITS | Encounter Summary ---
Author Organization [facility] Address [address] [place] [address] Care Team Providers Care Bone Puller Name Role Phone Naty Evans MD Unavailable Segundo Weems MD Primary Care Provider [phone] Reason for Visit * Reason Comments Abdominal Pain Arrives from home vi a EMS for intermittent RUQ abd pain X3 days. HX cirrhosis, thinks this might be a flare triggered after a dentist appt. Pt also notes +weakness, N/V, SOB and chest pains. Pain is rated, 8/10. Pt is sleeping in and out during triage. Chest Pain Shortness of Breath Encounter Details Date Type Department Care Team (Late st Contact Info) Description 04/07/2018 14:00 EDT - 04/07/2018 17:54 EDT Emergency [facility] Emergency Department - Main [place] [address] [place] [address] Jordan Arizmendi MD [address] [facility], [facility], [address] [place] [address] Emergency, MD Rolando Cirrhosis of liver without ascites, unspecified hepatic cirrhosis type (HCC-CMS) (Primary Dx) Discharge Disposition: Home or Self [...] Sign Reading Time Taken Comments Blood Pressure 136/84 04/07/2018 1700 EDT Pulse 98 04/07/2018 1416 EDT Temperature 36.8 ??C (98.2 ??F) 04/07/2018 1416 EDT Respiratory Rate 16 04/07/2018 1700 EDT Oxygen Saturation 97% 04/07/2018 1600 EDT Inhaled Oxygen Concentration - - Weight 104.3 kg (230 lb) 04/07/2018 1416 EDT Height 170.2 cm (5' 7) 04/07/2018 1416 EDT Body Mass Index 36.02 04/07/2018 1416 EDT documented in this encounter Functional Status [...] Diagnoses Diagnosis K74.60 Unspecified cirrhosis of liver-K74.60[ICD-10-CM] R06.02 Shortness of breath-R06.02[ICD-10-CM] R10.11 Right upper quadrant pain-R10.11[ICD-10-CM] R07.9 Chest pain, unspecified-R07.9[ICD-10-CM] R10.819 Abdominal tenderness, unspecified site-R10.819[ICD-10-CM] R14.0 Abdominal distension (gaseous)-R14.0[ICD-10-CM] J45.909 Unspecified asthma, uncomplicated-J45.909[ICD-10-CM] K21.9 Gastro-esophageal reflux disease without esophagitis-K21.9[ICD-10-CM] N18.9 Chronic kidney disease, unspecified-N18.9[ICD-10-CM] E07.9 Disorder of thyroid, unspecified-E07.9[ICD-10-CM] 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-Z79.51[ICD-10-CM] F17.210 Nicotine dependence, cigarettes, uncomplicated-F17.210[ICD-10-CM] Z79.899 Other intermediate (current) drug therapy-Z79.899[ICD-10-CM] Z88.5 Allergy status to narcotic agent status-Z88.5[ICD-10-CM] Z88.6 Allergy status to analgesic agent status-Z88.6[ICD-10-CM] Z90.49 Acquired absence of other specified parts of digestive tract-Z90.49[ICD-10-CM] Z90.710 Acquired absence of both cervix and uterus-Z90.710[ICD-10-CM] Z98.890 Other specified postprocedural states-Z98.890[ICD-10-CM] documented in this encounter Discharge Instructions * Attachments The following attachments cannot be sent through Care Everywhere. * ABDOMINAL PAIN (ESTONIAN) documented in this encounter Medications at Time [...] Daily Max: 30 mg 4 Tab 04/07/2018 01/03/2019 documented in this encounter Discharge Disposition Disposition Code Departure Means Destination Home or Self Care documented in this encounter ED Notes * Carina Monzon RN - 04/07/2018 4700 EDT Patient verbalizes understanding of all discharge instructions, including prescriptions, pain mgmt and follow up. IV removed, catheter intact. Left ambulatory without incident. * Carina Monzon RN - 04/07/2018 1632 EDT Answered call hines multiple times for requests of pain medication. Observed patient sleeping off and on after such requests. Pt refused tylenol and states that her PCP gives her Vicodin which she is aware has tylenol in it. Pt became upset and threaten to leave when hearing we wouldn't be giving her narcotics at this time stating, well that's what I came here for. My dentist told me to go to the for pain. Dr. Arizmendi at bedside to discuss plan for pt. * Desi Benton - 04/07/2018 1445 EDT 12 Lead EKG Performed by DESI BENTON and shown to Jordan Arizmendi MD. * Jordan Arizmendi MD - 04/07/2018 1443 EDT I, Brian Butt, am scribing for Jordan Arizmendi MD while he/she is personally performing the service. Brian Butt 04/07/2018 14:47 I performed a history and exam of this patient and discussed the case with the resident. Any descrepency between my chart and the resident chart reflect differences in the history and exam that were present on my evaluation of the patient. I fully participated in the patient's care. My plan is outlined below. Chief complaint: Abdominal pain. History: This is a 57 year old female with a history of cirrhosis, asthma, RA, and splenic vein thrombosis who presents via EMS with 3 days of abdominal pain associated with nausea and vomiting. She states the pain is worst in her RUQ and radiates up into her chest and her back. She also endorses tingling in both arms, which is new. Patient recently had two teeth in her left lower jaw extracted due to dental pain though she states this has not improved her pain. She was placed on antibiotics afterwards.She denies any swelling in her jaw. She does endorse fevers at home upwards of 102. Patient denies rashes, dysuria, or difficulty urinating. Surgical history: Positive for cholecystectomy, gastric fundoplication, hernia repair, appendectomy, and hysterectomy. Social history: Smokes cigarettes (0.5 ppd, 10 pack-years). No alcohol use. ROS: Positive for abdominal pain, nausea, vomiting, chest pain, back pain, tingling in extremities, dental pain, and fevers. Negative for jaw swelling, rash, dysuria, or difficulty urinating. My standard 10 point review of systems for this complaint is otherwise negative. PE Gen.: Chronically ill-appearing. HEENT: NC/AT, MMM, conjunctiva and sclera normal, OP clear. Lateral incisor and canine on lower left side were extracted recently. She has some bruising on her face. No fluctuance or pus draining. Neck: supple, full range of motion Lungs: CTAB Cardiac: RRR, No M Abdomen: Soft, non-tender abdomen, no guarding Skin: No rash Musculoskeletal: No deformities of the extremities, normal range of motion, no edema Neuro: Awake, alert, cooperative. Speaking in full sentences, cooperative. Psych: Normal affect. Laboratory studies and imaging: I performed a bedside abdominal ultrasound. Findings include no significant amount of fluid. No dilated loops of bowel. Images obtained, reviewed, and interpreted independently by myself. Please see formal report in the [facility] Images section. Images saved in PACS. Patient had labs that were reviewed independently by myself, significant for potassium low at 3.4, WBC low at 1.52, hematocrit low at 29.9, platelet count of 34 which is baseline, and lipase of 39. The patient had an EKG which was independently reviewed and interpreted by me. EKG showed sinus rhythm, normal axis, ST scooping in aVF which is slightly more pronounced than before, ST scooping in lead II which is similar to prior, T wave flattening in lead III which is similar to prior, and no evidence of ischemia. Assessment and plan: 57 yo F with abdominal pain. Her initial exam had some epigastric tenderness which then resolved. Review of prior visits and pt reports indicate similar prior pain. She states she normally has about 1 day of oxycodone and this resolves. Given limited treatment options in this patient with co-morbities will give 4 oxycodone. Sx constant for hours with one negative TNI many hours after onset of sx so ACS is very unlikely 16:35. Re-evaluation. Patient complains that her dental pain is worse and states that she was told by her PCP and her dentist to come to the ED for worsening pain after her tooth extraction yesterday. She states she also still has abdominal and chest pain but that this feels like an exacerbation ofchronic pain that she has been dealing with. Discussed options for treating her pain. She is very limited as to what she can take due to her liver disease and low platelets, so she cannot take NSAIDs or acetaminophen. Patient thinks oxycodone will help with her pain as her PCP has prescribed it for her in the past. I think this is fine. Patient discharged with a prescription for 4 tabs of oxycodone. This documentation is recorded by Brian Butt acting as Scribe under the direction and presence of Jordan Arizmendi MD. Jordan Arizmendi MD: I personally performed the services recorded by the scribe in my presence. I confirm the scribe's documentation has been reviewed by me to accurately and completely record my work, treatment, procedures, and medical decision making. * Danya Argueta - 04/07/2018 1441 EDT Blood drawn via saline lock per protocol, tiger and purple tube(s) sent to lab per order. * Carina Monzon RN - 04/07/2018 1416 EDT Chief Complaint Patient presents with ??? Abdominal Pain Arrives from home via EMS for intermittent RUQ abd pain X3 days. HX cirrhosis, thinks this might mauro flare triggered after a dentist appt. Pt also notes +weakness, N/V, SOB and chest pains. Pain is rated, 8/10. Pt is sleeping in and out during triage. ??? Chest Pain ??? Shortness of Breath documented in this encounter Miscellaneous Notes * ED Resident - Josh Sanches MD - 04/07/2018 1477 EDT DOS: 04/07/2018 Chief Complaint Patient presents with ??? Abdominal Pain Arrives from home via EMS for intermittent RUQ abd pain X3 days. HX cirrhosis, thinks this might mauro flare triggered after a dentist appt. Pt also notes +weakness, N/V, SOB and chest pains. Pain is rated, 8/10. Pt is sleeping in and out during triage. ??? Chest Pain ??? Shortness of Breath HPI The patient is a 57 y.o. female who presents today with Abdominal Pain (Arrives from home via EMS for intermittent RUQ abd pain X3 days. HX cirrhosis, thinks this might be a flare triggered after adentist appt. Pt also notes +weakness, N/V, SOB and chest pains. Pain is rated, 8/10. Pt is sleeping in and out during triage. ); Chest Pain; and Shortness of Breath. Patient reports that she has not felt well for the past 3 days with nausea vomiting and abdominal pain. She reports that she had a tooth pulled yesterday and was having bleeding following. She reports abdominal pain in RUQ. She reports good compliance with her medications and has been having 2-3 bowel movements per day. She denies fevers/chills. Abdominal Pain Associated symptoms: chest pain and shortness of breath Chest Pain Associated symptoms: abdominal pain and shortness of breath Shortness of Breath Associated symptoms: abdominal pain and chest pain Review of Systems Review of Systems Respiratory: Positive for shortness of breath. Cardiovascular: Positive for chest pain. Gastrointestinal: Positive for abdominal pain. The patient's past medical, family and social [...] ??C (98.2 ??F) Temp src: Oral Pulse: 98 Resp: 14 SpO2: 96 % BP: 139/82 BP Device: BP Machine Patient Position: Sitting BP Cuff Location: Right arm O2 Device: None (Room air) Physical Exam Constitutional: She is oriented to person, place, and time. She appears well- developed and well-nourished. She appears distressed. HENT: Head: Normocephalic and atraumatic. Eyes: EOM are normal. Pupils are equal, round, and reactive to light. Neck: Normal range of motion. Neck supple. Cardiovascular: Normal rate and regular rhythm. Pulmonary/Chest: Effort normal and breath sounds normal. No respiratory distress. Abdominal: Soft. Bowel sounds are normal. She exhibits distension. There is tenderness. There is norebound and no guarding. Musculoskeletal: Normal range of [...] appears to be a good tracing. Attending pulmonary function technologist not immediately available for acute interpretation. Radiology orders: None ED Lab Results Labs Reviewed COMPREHENSIVE METABOLIC PANEL (CMP) HEMAGRAM AND DIFFERENTIAL Relevant Data Procedures ED COURSE A medical screening exam was performed. EKG checked, wnl. Labs obtained are grossly unchanged from baseline with known thrombocytopenia. Trop negative. POCT u/s without evidence of ascites. Patient given pain medication which helped symptoms. Patient discharged home with p instructions to follow upwith PCP or to return if symptoms worsen. ASSESSMENT AND PLAN Final diagnoses: None DISPOSITION: No disposition on file The patient's pain was managed to an adequate level weighing risk vs. benefit of further medications. Upon departure from the Emergency Department, the patient's pain was 1 on a zero to ten scale. Any further pain treatment will be at the discretion of the provider following up with the patient based on their clinical assessment. Condition at departure from the Emergency Department: Stable PCP: Segundo Weems [facility] 04/07/2018 14:35 No flowsheet data found. documented in this encounter Plan of Treatment Upcoming Encounters Date Type Department Care Team (Late st Contact Info) Description 01/04/2025 13:00 EST Office Visit [facility] Ophthalmology - [address] [phone] Gagandeep Rome MD [address] [place] [address], [facility] [address] [place] [id number] 02/11/2025 13:30 EDT Telemedicine [facility] Hematology & Oncology [address] [id number] Dana Padilla MD [address] [place] [address] [address] [place] [address] documented as of this encounter Procedures Procedure Name Priority Date/Time Associated Diagnosis Comments ECG REPORT - SCANNED 04/10/2018 15:37 EDT TROPONIN I STAT 04/07/2018 16:06 EDT ED/URGENT CARE ADD-ON STAT 04/07/2018 15:15 EDT POCT US ABDOMEN STAT 04/07/2018 15:10 EDT EKG 12-LEAD STAT 04/07/2018 14:39 EDT COMPLETE BLOOD COUNT AND DIFFERENTIAL STAT 04/07/2018 14:35 EDT LIPASE Routine 04/07/2018 14:35 EDT COMPREHENSIVE METABOLIC PANEL (CMP) STAT 04/07/2018 14:35 EDT documented in this encounter Results * ECG REPORT - SCANNED (04/10/2018 15:37 EDT) 04/10/2018 15:3 7 EDT us Scan 2 Molecular Biologist PROCEDURE/MINOR SURGICAL OR DERABLES Final Result * TROPONIN I (04/07/2018 16:06 EDT) Troponin I (ng/mL) <0.034 <0.034 ng/ml 04/07/2018 16:37 EDT [facility] Comment: The results of this assay can be falsely lowered due to the consumption of Biotin. Blood specimen (specimen) BLOOD SPECIMEN / Unknown 04/07/2018 16:06 EDT 04/07/2018 16:09 EDT us Josh Sanches MD CHEMISTRY & BLOOD GAS OR DERABLES Final Result Performing Organization Address [facility] Co de Phone Number [facility] [address] [place] [address] * ED/URGENT CARE ADD-ON (04/07/2018 15:15 EDT) Tests to be added LIPASE 04/07/2018 15:21 EDT [facility] Number for problems [id number] (ED) 04/07/2018 15:21 EDT [facility] TOPOGRAPHY UNKNOWN / Unknown 04/07/2018 15:15 EDT 04/07/2018 15:27 EDT us Jordan Arizmendi MD HEMATOLOGY & PF4 ORD ERABLES Final Result Performing Organization Address City/[facility]/ZIP Co de Phone Number [facility] [address] [place] [address] * POCT US ABDOMEN (04/07/2018 15:10 EDT) Anatomical Region Laterality Modality Other 04/07/2018 15:1 0 EDT 04/24/2018 12:35 EDT Narrative 04/24/2018 12:35 EDT [facility] - Ultrasound Exam Date: 04/07/2018 Exam Type: POCT US ABDOMEN Chemical Tank Worker: Jordan Arizmendi MD Attending: Jordan Arizmendi MD Worksheet: POCUS_Abdomen Exam Information: ?? The following spaces were examined as part of the FAST exam: RUQ/Pyle's pouch, LUQ/splenorenal ?? The following spaces were examined as part of a general abdominal exam: transverse and longitudinal sweeps evaluating small bowel Exam Type: ?? Clinically indicated Indication(s) for Exam: ?? The exam was performed with the following indications: Abdominal pain Findings:: ?? Morison's pouch (RUQ): Fluid absent ?? Splenorenal space (LUQ): Fluid absent ?? Bowel assessment: No dilated loops of bowel Interpretation: ?? No pathologic free fluid Confirmatory study: ?? What confirmatory study was done?: Not applicable Physician Signature: ?? I review and approve of the documentation above.: Signed by Jordan Arizmendi MD on Tuesday, April 24, 2018 at 11:14:28 AM This exam was performed and interpreted by the [facility] ED Staff Procedure Note Jordan Arizmendi MD - 04/24/2018 [facility] - Ultrasound Exam Date: 04/07/2018 Exam Type: POCT US ABDOMEN Chemical Tank Worker: Jordan Arizmendi MD Attending: Jordan Arizmendi MD Worksheet: POCUS_Abdomen Exam Information: The following spaces were examined as part of the FAST exam: RUQ/Pyle's pouch, LUQ/splenorenal The following spaces were examined as part of a general abdominal exam: transverse and longitudinal sweeps evaluating small bowel Exam Type: Clinically indicated Indication(s) for Exam: The exam was performed with the following indications: Abdominal pain Findings:: Morison's pouch (RUQ): Fluid absent Splenorenal space (LUQ): Fluid absent Bowel assessment: No dilated loops of bowel Interpretation: No pathologic free fluid Confirmatory study: What confirmatory study was done?: Not applicable Physician Signature: I review and approve of the documentation above.: Signed by Jordan Arizmendi MD on Tuesday, April 24, 2018 at 11:14:28 AM This exam was performed and interpreted by the [facility] ED Staff us Josh Sanches MD IMG POCT US ORDERABLES F inal Result * EKG 12-LEAD (04/07/2018 14:39 EDT) 04/07/2018 14:3 9 EDT Narrative [facility] EKG - 04/10/2018 15:32 EDT ?[facility] Emergency ? Test Date: ?2018-04-07 Pat Name: ? PHYLISS BOOTHE ?Department: ?? ED ? Room: ? AC08 Gender: ? Female ? Recyclable Products Sorter: ?? [id number] : ?1960 ? Requested By: JONATHAN OSUNA Order Number: [id number] ? Reading MD: ?? VICKEY HEREDIA ? Measurements Intervals ?[place] ? Rate: ? 94 ? P: ?48 ID: ? [id number] ?QRS: ?58 QRSD: ? 102 ?T: ?23 QT: ? 364 ? QTc: ?455 ? Interpretive Statements SINUS RHYTHM NONSPECIFIC T-WAVE ABNORMALITY Compared to ECG 02/08/2018 19:26:56 No significant changes I reviewed the tracing and have either agreed or edited the findings in this report. Electronically Signed On 04-10-2018 15:32:03 EDT by VICKEY HEREDIA. Procedure Note Vickey Heredia MD - 04/10/2018 [facility] Emergency Test Date: 2018-04-07 Pat Name: TARA BOOTHE Department: ED Room: [facility] Gender: Female Recyclable Products Sorter: [id number] : 1960 Requested By: JONATHAN PARIS Order Number: [id number] Jose MD: VICKEY HEREDIA Measurements Intervals [place] Rate: 94 P: 48 ID: [id number] QRS: 58 QRSD: 102 T: 23 QT: 364 QTc: 455 Interpretive Statements SINUS RHYTHM NONSPECIFIC T-WAVE ABNORMALITY Compared to ECG 02/08/2018 19:26:56 No significant changes I reviewed the tracing and have either agreed or edited the findings inthis report. Electronically Signed On 04-10-2018 15:32:03 EDT by PARRIS. us Josh Sanches MD CARDIAC ECG ORDERABLES F inal Result [facility] EKG * LIPASE (04/07/2018 14:35 EDT) Lipase 39 <251 U/L 04/07/2018 15:55 [facility] BLOOD SPECIMEN / Unknown 04/07/2018 14:35 EDT 04/07/2018 14:48 EDT us Josh Sanches MD CHEMISTRY & BLOOD GAS OR DERABLES Final Result [facility] [address] [place] [address] * (ABNORMAL) HEMAGRAM AND DIFFERENTIAL (04/07/2018 14:35 EDT) WBC 1.52(L) 4.0 - 12.4 K/cmm 04/07/2018 15:06 [facility] RBC 3.66(L) 3.86 - 5.04 M/cmm 04/07/2018 15:06 [facility] Hemoglobin 10.2(L) 11.6 - 15.2 gm/dl 04/07/2018 15:06 [facility] HCT 29.9(L) 34.9 - 44.4 % 04/07/2018 15:06 [facility] MCV 82 81 - 98 fl 04/07/2018 15:06 [facility] MCH 27.9 26.7 - 33.3 pg 04/07/2018 15:06 [facility] MCHC 34.1 32.1 - 35.9 gm/dl 04/07/2018 15:06 [facility] RDW-CV 14.9(H) <14.7 % 04/07/2018 15:06 [facility] RDW-SD 44.1 <50.4 fl 04/07/2018 15:06 [facility] PLT 34(L) 141 - 377 K/cmm 04/07/2018 15:06 [facility] MPV 10.7 9.5 - 12.7 fl 04/07/2018 15:06 [facility] Neutrophils 78.0 % 04/07/2018 15:38 [facility] Lymphocytes 12.0 % 04/07/2018 15:38 [facility] Monocytes 8.0 % 04/07/2018 15:38 [facility] Eosinophils 1.0 % 04/07/2018 15:38 [facility] Basophils 1.0 % 04/07/2018 15:38 [facility] ABS Neutrophils 1.18(L) 2.20 - 8.85 K/cm 04/07/2018 15:38 [facility] ABS Lymphs 0.18(L) 1.09 - 3.30 K/cm 04/07/2018 15:38 [facility] ABS Monocytes 0.12 0.1 - 0.8 K/cm 04/07/2018 15:38 [facility] ABS Eosinophils 0.02(L) 0.03 - 0.61 K/cm 04/07/2018 15:38 [facility] ABS Basophils 0.02 0.01 - 0.11 K/cm 04/07/2018 15:38 [facility] Type of Diff: Manual 04/07/2018 15:38 [facility] Blood specimen (specimen) BLOOD SPECIMEN / Unknown 04/07/2018 14:35 EDT 04/07/2018 14:48 EDT us Josh Sanches MD PACKAGES & DNA PROBE ORD ERABLES Final Result [facility] [address] [place] [address] * (ABNORMAL) COMPREHENSIVE METABOLIC PANEL (CMP) (04/07/2018 14:35 EDT) Potassium 3.4(L) 3.5 - 5.0 mEq/L 04/07/2018 15:08 [facility] Sodium 139 136 - 145 mEq/L 04/07/2018 15:08 [facility] Chloride 108 96 - 110 mEq/L 04/07/2018 15:08 [facility] CO2 25 22 - 32 mEq/L 04/07/2018 15:08 [facility] Total Alkaline Phosphatase 84 38 - 126 U/L 04/07/2018 15:08 [facility] Bilirubin, Total 0.8 <1.4 mg/dl 04/07/20 15:08 [facility] AST 32 15 - 46 U/L 04/07/2018 15:08 [facility] ALT 36 <53 U/L 04/07/2018 15:08 [facility] Albumin 3.3(L) 3.4 - 4.9 g/dl 04/07/2018 15:08 [facility] Total Protein 5.9(L) 6.3 - 8.2 g/dl 04/07/2018 15:08 [facility] Creatinine 0.68 0.52 - 1.04 mg/dl 04/07/2018 15:08 [facility] GFR, Calculated 97 >60 ml/min/1.7 3m2 04/07/2018 15:08 [facility] Comment: eGFR calculated using CKD-EPI equation for non Americans. Multiply eGFR by 1.16 for Americans. BUN 12 10 - 26 mg/dl 04/07/2018 15:08 [facility] Calcium 8.0(L) 8.5 - 10.5 mg/dl 04/07/2018 15:08 [facility] Calculated Calcium 8.6 8.5 - 10.5 mg/dl 04/07/2018 15:08 [facility] Glucose, Serum 132(H) 70 - 100 mg/dl 04/07/2018 15:08 [facility] Fasting? Unknown 04/07/2018 14:49 [facility] Blood specimen (specimen) BLOOD SPECIMEN / Unknown 04/07/2018 14:35 EDT 04/07/2018 14:48 EDT us Josh Sanches MD CHEMISTRY & BLOOD GAS OR DERABLES Final Result [facility] [address] [place] [address] documented in this encounter Visit Diagnoses Diagnosis Cirrhosis of liver without ascites, unspecified hepatic cirrhosis type (HCC-CMS)- Primary documented in this encounter Administered Medications Inactive Administered Medications - up to 3 most recent administrations Medication Order MAR Action Action Date Dose Rate Site ondansetron (PF) (ZOFRAN) injection 4 mg 4 mg, intravenous, NOW X1, 1 dose, On Tue04/07/18 at 1445, STAT Given 04/07/2018 15:09 EDT 4 mg oxyCODONE (ROXICODONE) immediate release tablet 5 mg 5 mg, oral, NOW X1, 1 dose, On Tue04/07/18 at 1745, STAT Given 04/07/2018 17:48 EDT 5 mg documented in this encounter Discontinued Medications Medication Sig Discontinue Reason Start Date End Da te oxyCODONE (ROXICODONE) 5 mg immediate release tablet Take by mouth every 4 hours as needed for Pain. 04/07/2018 documented as of this encounter Active and Recently Administered Medications Times are shown in EDT. Scheduled Medication Order 04/05/2018 04/06/2018 04/07/2018 ondansetron (PF) (ZOFRAN) injection 4 mg (COMPLETED) 4 mg, intravenous, NOW X1, 1 dose, On Tue04/07/18 at 1445, STAT 1509 (Given - Provid er: Carina Monzon RN) oxyCODONE (ROXICODONE) immediate release tablet 5 mg (COMPLETED) 5 mg, oral, NOW X1, 1 dose, On Tue04/07/18 at 1745, STAT 1748 (Given - Provid er: Carina Monzon RN) documented in this encounter Orders Nursing Count Last Ordered Date First Orde red Date INSERT PERIPHERAL IV 1 04/07/2018 documented in this encounter Care Teams Bone Puller Relationship Specialty Start Date End Date Naty Evans MD [address] [place] [address] [place] [phone] PCP - Alternate 09/30/17 04/11/19 Segundo Weems MD [address] [place] [address] [place] [phone] PCP - General 02/08/18 07/28/18 documented as of this encounter
--- OUTSIDE RECORDS SUMMARY | 2024-11-22 17:27 | XMS_ITS | Encounter Summary ---
Author Organization [facility] Address [address] [place] [address] Care Team Providers Care Senior Software Analyst Name Role Phone Naty Evans MD Unavailable Segundo Weems MD Primary Care Provider [phone] Encounter Details Date Type Department Care Team (Late st Contact Info) Description 05/18/2018 Results Only [facility] [phone] Aj Issa MD [address] [place] [address] [address] [place] [address] Social History Tobacco Use Types [...] EST Office Visit [facility] Ophthalmology - [address] [phone] Gagandeep Rome MD [address] [place] [address], [facility] [address] [place] [address] 02/11/2025 13:30 EDT Telemedicine [facility] Hematology & Oncology [address] [phone] Dana Padilla MD [address] [place] [address], Level [address] [place] [phone] documented as of this encounter Procedures Procedure Name Priority Date/Time Associated Diagnosis Comments BENZODIAZEPINE PANEL CONFIRMATION Routine 05/18/2018 17:33 EDT documented in this encounter Results * BENZODIAZEPINES CONFIRMATION PANEL, U (05/18/2018 17:33 EDT) 7-Aminoclonazepam NEGATIVE <50 ng/mL 05/21/2018 10:02 EDT [facility] Alphahydroxyalpraz NEGATIVE <50 ng/mL 05/21/2018 10:02 EDT [facility] Lorazepam NEGATIVE <50 ng/mL 05/21/2018 10:02 EDT [facility] Midazolam NEGATIVE <50 ng/mL 05/21/2018 10:02 EDT [facility] Nordiazepam NEGATIVE <50 ng/mL 05/21/2018 10:02 EDT [facility] Temazepam NEGATIVE <50 ng/mL 05/21/2018 10:02 EDT [facility] Oxazepam NEGATIVE <50 ng/mL 05/21/2018 10:02 EDT [facility] Comment: Performed by: [facility], [address] [place] [address], Firm Administrator: Lilly Menjivar MD URINE / Unknown 05/18/2018 1 7:33 EDT 05/18/2018 19:22 EDT us Aj Issa MD URINALYSIS ORDERABLES Fi nal Result [facility] [address] [place] [address] documented in this encounter Visit Diagnoses Not on filedocumented in this encounter Care Teams Senior Software Analyst Relationship Specialty Start Date End Date Naty Evans MD [address] [place] [address] [place] [phone] PCP - Alternate 09/30/17 04/11/19 Segundo Weems MD [address] [place] [address] [place] [phone] PCP - General 02/08/18 07/28/18 documented as of this encounter
--- OUTSIDE RECORDS SUMMARY | 2024-11-22 17:27 | XMS_ITS | Encounter Summary ---
Author Organization [facility] Address [address] [place] [address] Care Team Providers Care Wage Conciliator Name Role Phone Hardik Viramontes MD Primary Care Provider [phone] Naty Evans MD Unavailable Reason for Visit * Reason Onset Date Comments Appointment Related 11/07/2017 12.19 Returning Call 11/07/2017 rescheduled appt to 01/16 Encounter Details Date Type Department Care Team (Late st Contact Info) Description 11/07/2017 Telephone [facility] Urology - [address] [phone] Lon Ortez MD [address] [facility], Level 5 [place] [address] Appointment Related (.19); Returning Call (rescheduled appt to 01/16) Social History Tobacco Use Types Packs/Day Years [...] * Telephone Encounter - Goldie Camara - 11/07/2017 1624 EST rescheduled appt to 01/16 * Telephone Encounter - Dana Dodson V. - 11/07/2017 1551 EST Reason for Call: Appointment Related (11.08) Summary/Symptoms: Patient needs to reschedule her ..17 Cysto/Pérez appointments Dana Dodson 11/07/2017 15:51 documented in this encounter Plan of Treatment Upcoming Encounters Date Type Department Care Team (Late st Contact Info) Description 01/04/2025 13:00 EST Office Visit [facility] Ophthalmology - [address] [address] Gagandeep Rome MD [address] [facility], [address] [place] [phone] 02/11/2025 13:30 EDT Telemedicine [facility] Hematology & Oncology - [address] [phone] Dana Padilla MD [address] [facility] 2 [place] [address] documented as of this encounter Visit Diagnoses Not on filedocumented in this encounter Care Teams Wage Conciliator Relationship Specialty Start Date End Date Hardik Viramontes MD 1 [facility] Level 1 [place] [phone] PCP - General 09/30/17 02/07/18 Naty Evans MD [address] [place] [address] [place] [phone] PCP - Alternate 09/30/17 04/11/19 documented as of this encounter
--- OUTSIDE RECORDS SUMMARY | 2024-11-22 17:27 | XMS_ITS | Encounter Summary ---
Author Organization [facility] Address [address] [place] [address] Care Team Providers Care Software Database Architect Name Role Phone Naty Evans MD Unavailable Segundo Weems MD Primary Care Provider Reason for Visit * Reason Comments New Patient Visit Cirrhosis * Consult (Routine) - Closed Specialty Diagnoses / Procedures Referred By Contact Referred To Contact Gastroenterology and Hepatology Diagnoses Unspecified cirrhosis of liver (HCC-CMS) Segundo Weems MD [address] [place] [address] [place] [address] Phone: tel: fax:[phone] [facility] Gastroenterology [address] [address] Phone: tel: fax: Referral ID Status Reason Start Date Expiration Date Visits Re quested Visits Authorized [id number] Closed 1 1 Encounter Details Date Type Department Care Team (Late st Contact Info) Description 03/03/2018 9:30 EDT Office Visit [facility] Gastroenterology [address] [address] Micheal Moseley MD PhD [address] [place] [address], [address] 5 [place] [address] Cirrhosis of liver without ascites, unspecified hepatic cirrhosis type (HCC-CMS) (Primary Dx) Discharge Disposition: Auto Discharge [...] Sign Reading Time Taken Comments Blood Pressure 104/80 03/03/2018927 EDT Pulse 64 03/03/2018 09 EDT Temperature - - Respiratory Rate - - Oxygen Saturation - - Inhaled Oxygen Concentration - - Weight 99.8 kg (220 lb) 03/03/2018927 EDT Height 161.3 cm (5' 3.5) 03/03/2018927 EDT Body Mass Index 38.36 03/03/2018 0928 EDT documented in this encounter Functional Status [...] Date of Assessment Author No 08/24/2017 23:43 Inderjti Radford RN * Because of a physical, [...] cirrhosis of liver-K74.60[ICD-10-CM] documented in this encounter Discharge Disposition Disposition Code Departure Means Destination Auto Discharge documented in this encounter Progress Notes * Micheal Moseley MD - 03/03/2018 0930 EDT This office note has been dictated. documented in this encounter Consult Notes * Micheal Moseley MD - 03/03/2018 0000 EDT [facility] GASTRO[facility]OLOGY AND HEPATOLOGY CONSULTATION - 03/03/2018 [place] [address] Weems: Thank you for asking me to see your patient, Tara Yun, in consultation today. As you know, sheis a 57-year-old woman with cirrhosis. The diagnosis of cirrhosis was made in 2012 when thrombocytopenia was noticed during a preoperative evaluation for a hernia repair. The patient was taking several psychoactive medications at that time, and developed confusion. Lactulose and rifaximin were administered with resolution of symptoms. There have been no episodes of encephalopathy since. The patient has been followed since that time at [facility], where the patient had been most recently seen by color separation photographer, Dr Ijeoma Smith. Details from the electronic health record indicate that the patient has undergone a formal hematological evaluation for pancytopenia, which included a bone marrow biopsy (results not evident in the record).Surveillance endoscopies with anesthesia sedation have been performed most recently in November 2016, and these demonstrated portal hypertensive gastropathy. There have been no other signs or symptomsfrom the standpoint of decompensated liver disease, including jaundice or gastrointestinal bleeding. The patient was hospitalized at 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 No hepaticmass lesions were identified. Anticoagulants were briefly attempted, but the patient developed hematuria, and these were discontinued. The only serological evaluation available to me indicates a positive hepatitis C antibody and undetected hepatitis C viral RNA as of February 2017. The patient believes that she was previously vaccinated against hepatitis B, but is uncertain about hepatitis A. Past health is otherwise significant for dyslipidemia, thyroid disease, mood disorder, reactive airways disease, and gastroesophageal reflux (status post gastric fundoplication). A 10-point review of systems was taken, which was otherwise negative. Family history is negative for liver disease. 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 She lives with several roommates. There is no history of significant alcohol use (the patient does not consume alcoholic beverages currently) and there is no history of illegal drug use. Adverse reactions to medications include MORPHINE, SULFA DRUGS, ACETAMINOPHEN, TORADOL, ASPIRIN, LYRICA, AND METOCLOPRAMIDE. Current medications include albuterol inhaler, ferrous gluconate, fluticasone inhaler, thyroxine, ondansetron, pantoprazole, and rifaximin. On physical examination, the patient was found to be an obese white woman, weight 220 pounds (BMI 38.36, blood pressure 104/80, pulse 64. The skin revealed scattered spider angiomata. The sclerae were clear. The oropharynx was clear. The neck revealed no lymphadenopathy. The lungs revealed diffuse wheezes throughout. Cardiac examination revealed a regular rhythm. The abdomen revealed no obvious ascites. It was soft, nontender, and no masses were appreciated. I could not palpate a liver or spleen. There was no pretibial edema. Neurologically, the patient was alert and oriented, and no asterixis was present. Laboratory data obtained in January 2018 show white blood cell count 1.37, hematocrit 33.4, . INR 1.2, bilirubin 0.5, alkaline phosphatase 76, ALT 76, AST 26, albumin 3.7, sodium 140, creatinine 0.85. The MELD score was 8 (range 6 to 40). In summary, Ms Yun has clinically compensated cirrhosis with nearly normal hepatic synthetic function. The most likely underlying diagnosis is nonalcoholic fatty liver disease (NAFLD). The treatment of choice for this is weight loss through dietary calorie reduction, and if possible increased exercise. Formal consultation with a foiling machine adjuster would be helpful in this regard. [facility] is participating in clinical research trials for NAFLD, but pancytopenia would be a contraindication. The history of portal hypertensive gastropathy is indicative of clinically significant portal hypertension. This would place the patient at risk for portal hypertensive gastrointestinal bleeding. A very good preventative strategy would be to initiate treatment with a low dose nonselective beta warren (e.g., nadolol 20 mg daily, propranolol 20 mg b.i.d.). The dosage could be titrated weekly, if tolerated to a maximum dosage of 80 mg of nadolol daily or 80 mg b.i.d. of propranolol. If beta warren therapy is not tolerated, please call me directly, and I will arrange for endoscopy with anesthesia sedation. Cirrhosis places the patient at risk for the development of hepatocellular carcinoma. I will arrange for surveillance right upper quadrant abdominal ultrasound. I will be in touch with you and the patient with the results. If no worrisome findings are detected, I would recommend that you continue mccoy rveillance right upper quadrant abdominal ultrasound at 6-month intervals indefinitely. It is not certain whether the patient ever had hepatic encephalopathy. One option is to discontinuerifaximin under careful observation. The other is to continue rifaximin indefinitely. My only other recommendations are that you arrange for hepatitis A and B vaccination if there is noserological evidence of prior exposure or immunity (I will test for this and share the results withyou), and that you continue to monitor the patient at least every 6 months with a complete blood count, comprehensive metabolic panel, and prothrombin time. I have not scheduled a routine followup appointment, but I would be prepared to see her for a liver specific complication (e.g., diuretic resistant ascites, new hepatic mass lesion) or if the MELD score increases above 15. Thank you once again for allowing me to see this patient in consultation with you. Should you have any further questions regarding this evaluation, please feel free to contact me at any time. Sincerely, Micheal Moseley MD,PhD 11 47 AM - Micheal Moseley MD,PhD cn Dictation ID: [id number] cc: Segundo Weems MD, [address] [address] documented in this encounter Plan of Treatment Upcoming Encounters Date Type Department Care Team (Late st Contact Info) Description 01/04/2025 13:00 EST Office Visit [facility] Ophthalmology - [address] [phone] Gagandeep Rome MD [address] [facility], [address] [place] [address] 02/11/2025 13:30 EDT Telemedicine [facility] [[email or web address] Cancer [place] Hematology & Oncology - [address] [phone] Dana Padilla MD [address] [place] [address], [facility] 2 [place] [address] documented as of this encounter Results * (ABNORMAL) HEPATITIS A TOTAL ANTIBODY W REFLEX (03/03/2018 10:15 EDT) Hep A Total Antibody w Reflex Positive(A ) Negative 03/03/2018 13:40 EDT [facility] Comment:Antibody to Hepatiti s A detected. Blood specimen (specimen) BLOOD SPECIMEN / Unknown 03/03/2018 10:15 EDT 03/03/2018 10:57 EDT us Micheal Moseley MD PhD CHEMISTRY & BLOOD GAS [facility] Final Result [facility] [address] [place] [address] * HEPATITIS B SURFACE ANTIBODY (03/03/2018 10:15 EDT) Hepatitis B Surface Antibody, Qualitative Positive 03/03/2018 13:36 EDT [facility] Comment: Reference Range: Unvaccinated: ??Negative Vaccinated: ??Positive Patient is presumed to be immune to infection with HBV. Hepatitis B Antibody, Quantitative 12.0 mIU/mL 03/03/2018 13:36 EDT [facility] Comment: Reference Range: Positive: ??>=10.0 mIU/mL Negative: ??<10.0 mIU/mL Patient is presumed to be immune to infection with HBV. Blood specimen (specimen) BLOOD SPECIMEN / Unknown 03/03/2018 10:15 EDT 03/03/2018 10:57 EDT Micheal Moseley MD PhD CHEMISTRY & BLOOD GAS O [facility] Final Result Performing Organization Address City/[facility] Co de Phone Number [facility] [address] [place] [address] * HEPATITIS B CORE ANTIBODY (TOTAL) (03/03/2018 10:15 EDT) Hepatitis B Core Antibody Negative Negative 03/03/2018 13:41 EDT [facility] Blood specimen (specimen) BLOOD SPECIMEN / Unknown 03/03/2018 10:15 EDT 03/03/2018 10:57 EDT Micheal Moseley MD PhD CHEMISTRY & BLOOD GAS O RDERABLES Final Result Performing Organization Address [facility] Co de Phone Number [facility] [address] [place] [address] documented in this encounter Visit Diagnoses Diagnosis Cirrhosis of liver without ascites, unspecified hepatic cirrhosis type (HCC-CMS)- Primary documented in this encounter Care Teams Software Database Architect Relationship Specialty Start Date End Date Naty Evans MD [address] [place] [address] [place] [phone] PCP - Alternate 09/30/17 04/11/19 Segundo Weems MD [address] [place] [address] [place] [phone] PCP - General 02/08/18 07/28/18 documented as of this encounter
--- OUTSIDE RECORDS SUMMARY | 2024-11-22 17:27 | XMS_ITS | Encounter Summary ---
Author Organization [facility] Address [address] [place] [address] Care Team Providers Care Printed Circuit Board Assembler Name Role Phone Hardik Viramontes MD Primary Care Provider [phone] Naty Evans MD Unavailable Encounter Details Date Type Department Care Team (Late st Contact Info) Description 12/29/2017 Orders Only Non [facility] Ancillary Services Ijeoma Smith MD [address] [place] [address] [place] [id number] 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 (CMS-HCC) (HCC-CMS) [...] Visit [facility] Ophthalmology - [address] [id number] Gagandeep Rome MD [address] [place] [address], [facility] 5 [place] [address] 02/11/2025 13:30 EDT Telemedicine [facility] Hematology & Oncology [address] [id number] Dana Padilla MD [address] [place] [address], [facility] 2 [place] [address] documented as of this encounter Results * (ABNORMAL) HEMAGRAM AND DIFFERENTIAL (01/03/2018 10:00 EST) WBC 1.17(L) 4.0 - 12.4 K/cmm 01/03/2018 11:09 EST [facility] RBC 4.09 3.86 - 5.04 M/cmm 01/03/2018 11:09 [facility] Hemoglobin 11.3(L) 11.6 - 15.2 gm/dl 01/03/2018 11:09 [facility] HCT 34.4(L) 34.9 - 44.4 % 01/03/2018 11:09 [facility] MCV 84 81 - 98 fl 01/03/2018 11:09 [facility] MCH 27.6 26.7 - 33.3 pg 01/03/2018 11:09 [facility] MCHC 32.8 32.1 - 35.9 gm/dl 01/03/2018 11:09 [facility] RDW-CV 14.8(H) <14.7 % 01/03/2018 11:09 [facility] RDW-SD 45.1 <50.4 fl 01/03/2018 11:09 [facility] PLT 41(L) 141 - 377 K/cm 01/03/2018 11:09 [facility] MPV 10.4 9.5 - 12.7 fl 01/03/2018 11:09 [facility] % Neutrophils 72.7 % 01/03/2018 11:09 [facility] % Lymphocytes 16.2 % 01/03/2018 11:09 [facility] % Monocytes 9.4 % 01/03/2018 11:09 [facility] % Eosinophils 1.7 % 01/03/2018 11:09 [facility] % Basophils 0.0 % 01/03/2018 11:09 [facility] % Immature Grans 0.0 % 01/03/2018 11:09 [facility] ABS Neutrophils 0.85(L) 2.20 - 8.85 K/cmm 01/03/2018 11:09 [facility] ABS Lymphs 0.19(L) 1.09 - 3.30 K/cmm 01/03/2018 11:09 [facility] ABS Monocytes 0.11 0.1 - 0.8 K/cmm 01/03/2018 11:09 [facility] ABS Eosinophils 0.02(L) 0.03 - 0.61 K/cmm 01/03/2018 11:09 [facility] ABS Basophils 0.00(L) 0.01 - 0.11 K/cmm 01/03/2018 11:09 [facility] ABS Immature Grans 0.00 0 - 0.06 K/cmm 01/03/2018 11:09 [facility] Type of Diff: Automated 01/03/2018 11:09 [facility] Blood specimen (specimen) BLOOD SPECIMEN / Unknown 01/03/2018 10:00 EST 01/03/2018 10:48 EST us Ijeoma Smith MD PACKAGES & DNA PROBE ORDERABLES Final Result [facility] [address] [place] [address] * (ABNORMAL) COMPREHENSIVE METABOLIC PANEL (CMP) (01/03/2018 10:00 EST) Potassium 4.0 3.5 - 5.0 mEq/L 01/03/2018 11:40 [facility] Sodium 143 136 - 145 mEq/L 01/03/2018 11:40 [facility] Chloride 107 96 - 110 mEq/L 01/03/2018 11:40 [facility] CO2 27 22 - 32 mEq/L 01/03/2018 11:40 [facility] Total Alkaline Phosphatase 76 38 - 126 U/L 01/03/2018 11:40 [facility] Bilirubin, Total <0.5 <1.4 mg/dl 01/03/20 18 11:40 [facility] AST 17 15 - 46 U/L 01/03/2018 11:40 [facility] ALT 27 <53 U/L 01/03/2018 11:40 [facility] Albumin 3.7 3.4 - 4.9 g/dl 01/03/2018 11:40 [facility] Total Protein 6.6 6.3 - 8.2 g/dl 01/03/2018 11:40 [facility] Creatinine 0.85 0.52 - 1.04 mg/dl 01/03/2018 11:40 [facility] GFR, Calculated 76 >60 ml/min/1.7 3m2 01/03/2018 11:40 [facility] Comment: eGFR calculated using CKD-EPI equation for non Americans. Multiply eGFR by 1.16 for Americans. BUN 13 10 - 26 mg/dl 01/03/2018 11:40 [facility] Calcium 8.9 8.5 - 10.5 mg/dl 01/03/2018 11:40 [facility] Calculated Calcium 9.1 8.5 - 10.5 mg/dl 01/03/2018 11:40 [facility] Glucose, Serum 108(H) 70 - 100 mg/dl 01/03/2018 11:40 [facility] Fasting? YES 01/03/2018 9:55 [facility] Blood specimen (specimen) BLOOD SPECIMEN / Unknown 01/03/2018 10:00 EST 01/03/2018 10:48 EST Ijeoma Smith MD CHEMISTRY & BLOOD GAS ORDERABLES Final Result [facility] [address] [place] [address] * (ABNORMAL) PROTIME (01/03/2018 10:00 EST) Pro Time 15.4(H) 10.3 - 13.4 secs 01/03/2018 11:24 [facility] Comment:NOTE NEW REFERENCE R COLLIN OF DEC 22 2017 I.N.R. 1.3(H) 0.9 - 1.1 Ratio 01/03/2018 11:24 [facility] Comment: Moderate Intensity Coumadin INR = 2.0-3.0 Adjustments in anticoagulant therapy dose should be based upon the INR and NOT the Pro Time. Blood specimen (specimen) BLOOD SPECIMEN / Unknown 01/03/2018 10:00 EST 01/03/2018 10:48 EST Ijeoma Smith MD HEMATOLOGY & PF4 ORDERABLES Pricila mccord Result [facility] [address] [place] [address] documented in this encounter Visit Diagnoses Diagnosis 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 (HCC-CMS)- Primary Other chronic nonalcoholic liver disease documented in this encounter Care Teams Printed Circuit Board Assembler Relationship Specialty Start Date End Date Hardik Viramontes MD 1 [facility] Level [address] [place] [address] PCP - General 09/30/17 02/07/18 Naty Evans MD [address] [place] [address] [place] [phone] PCP - Alternate 09/30/17 04/11/19 documented as of this encounter
--- OUTSIDE RECORDS SUMMARY | 2024-11-22 17:27 | XMS_ITS | Encounter Summary ---
Author Organization [facility] Address [address] [place] [address] Care Team Providers Care Linux System Admin Name Role Phone Hardik Viramontes MD Primary Care Provider [phone] Naty Evans MD Unavailable Reason for Visit * Reason Onset Date Comments Neck Pain 12/20/2017 swelling Requesting Sooner Appointment 12/20/2017 Encounter Details Date Type Department Care Team (Late st Contact Info) Description 12/20/[address] [facility] [address] [place], [place] [phone] Jesus Vaughan MD [address] [facility], [address] [place] [address] Neck Pain (swelling); Requesting Sooner Appointment Social History Tobacco Use [...] Answer Entry Date Author No 09/09/2017 9:36 Idnerjit Radford RN documented in this encounter Miscellaneous Notes * Telephone Encounter - Allison Farley RN - 12/20/2017 1415 EST Spoke with the patient who reports neck pain x 1 week. Worse when she turns her head. 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 If it is determined that the patient should seeENT again then they should send us notes and a referral. The patient was advised and has verbalizedunderstanding. * Telephone Encounter - Gricelda Ross - 12/20/2017 1401 EST Patient called concerned with neck pain and swelling on the same area she had surgery with Dr. Vaughan a few years ago. She's requesting a sooner than January appointment when he's scheduling. She's seeing PCP Dr. Weems tomorrow and will have them send notes for review. Please advise. documented in this encounter Plan of Treatment Upcoming Encounters Date Type Department Care Team (Late st Contact Info) Description 01/04/2025 13:00 EST Office Visit [facility] Ophthalmology - [address] [id number] Gagandeep Rome MD [address] [place] [address], [facility] 5 [place] [address] 02/11/2025 13:30 EDT Telemedicine [facility] Hematology & Oncology - [address] [phone] Dana Padilla MD [address] [place] [address], [facility] 2 [place] [phone] documented as of this encounter Visit Diagnoses Not on filedocumented in this encounter Care Teams Linux System Admin Relationship Specialty Start Date End Date Hardik Viramontes MD 1 [facility] 1 [place] [phone] PCP - General 09/30/17 02/07/18 Naty Evans MD [address] [place] [address] [place] [phone] PCP - Alternate 09/30/17 04/11/19 documented as of this encounter
--- OUTSIDE RECORDS SUMMARY | 2024-11-22 17:27 | XMS_ITS | Encounter Summary ---
Author Organization [facility] Address [address] [place] [address] Care Team Providers Care Pasteurizer Helper Name Role Phone Hardik Viramontes MD Primary Care Provider Naty Evans MD Unavailable Reason for Visit * Reason Comments New Patient Visit Encounter Details Date Type Department Care Team (Late st Contact Info) Description 09/30/2017 13:45 EST Office Visit [facility] Primary Care - [address] [address] Unknown, Provider, Segundo Moore MD MPH 1 [facility] Level [address] [place] [address] Naty Evans MD [address] [place] [address] [place] [id number] Annual physical exam (Primary Dx); Other cirrhosis of liver (CMS-HCC) (HCC-CMS); Hematuria, gross; Other specified hypothyroidism; Chronic midline low back pain without sciatica; Hypersplenism syndrome; Pancytopenia (CMS-HCC) (HCC-CMS) Social History Tobacco Use Types Packs/Day [...] Sign Reading Time Taken Comments Blood Pressure 110/62 09/30/2017 1333 EST Pulse 80 09/30/2017 1333 EST Temperature 37.2 ??C (99 ??F) 09/30/2017 1333 EST Respiratory Rate 20 09/30/2017 1333 EST Oxygen Saturation - - Inhaled Oxygen Concentration - - Weight 98.4 kg (217 lb) 09/30/2017 1333 EST Height 161.3 cm (5' 3.5) 09/30/2017 1333 EST Body Mass Index 37.84 09/30/2017 1333 EST documented in this encounter Functional Status [...] documented in this encounter Progress Notes * Naty Evans MD - 09/30/[address] [facility] Department of Internal Medicine New Patient Visit HISTORY OF PRESENT ILLNESS Tara Yun is a 57 y.o. female with a past medical history significant for chronic back pain, drug seeking behavior, liver cirrhosis s/p QUIROZ and obesity presenting to establish care with PCP. Patient reports recent ED visit when she took 15 xanax in an attempt to hurt herself. She was distressed over psychosocial conflict she was having at the time with her children. She has a history of anxiety for which she takes Xanax daily though she reports mostly for sleep. She has an appointment with Nataly King, a [facility] therapist has appointment on the 11 of October. Patient reports that she was also recently admitted at [facility] for splenic vein thrombosis. She has since seen Dr. Smith of gastroenterology at [facility]. 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 Patient says Dr. 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 She reports that Dr. Smith started her on amitriptyline and gabapentin in an effort to wean her off oxycodone and xanax. She expresses desire to taper off these medications but needs a refill of oxycodone. Her xanax will also need to be refilled soon. She reports only taking it when she needs to go to sleep. Today, she has no complaints. Review of Systems Constitutional: Negative. HENT: Negative. Eyes: Negative. Respiratory: Negative. Cardiovascular: Negative. Gastrointestinal: Negative. Genitourinary: Negative. Musculoskeletal: Negative. Skin: Negative. Neurological: Negative. Endo/Heme/Allergies: Negative. Psychiatric/Behavioral: Negative. PROBLEM LIST Patient Active Problem List Diagnosis ??? Pancytopenia (HCC) ??? Mild persistent asthma without complication ??? Drug-seeking behavior ??? Hypersplenism syndrome ??? Splenic vein thrombosis ??? Hematuria, gross ??? Chronic back pain ??? Cirrhosis of liver (HCC) ??? Obesity, Class II, BMI 35-39.9 ??? Hypothyroidism OBJECTIVE BP: 110/62 Pulse: 80 Resp: 20 Temp: 37.2 ??C (99 ??F) Weight : 98.4 kg (217 lb) Height: 161.3 cm (63.5) Physical Exam Constitutional: She is oriented to person, place, and time. She appears unhealthy. HENT: Head: Normocephalic and atraumatic. Eyes: Conjunctivae and EOM are normal. Pupils are equal, round, and reactive to light. Neck: Normal range of motion. Neck supple. Cardiovascular: Normal rate and regular rhythm. Exam reveals no gallop and no friction rub. No murmur heard. Pulmonary/Chest: Effort normal and breath sounds normal. No respiratory distress. She has no wheezes. She has no rales. Abdominal: Soft. Bowel sounds are normal. She exhibits no fluid wave, no ascites and no mass. Thereis hepatosplenomegaly. There is no tenderness. There is no CVA tenderness. Musculoskeletal: Normal range of motion. Lymphadenopathy: She has no cervical adenopathy. Neurological: She is alert and oriented to person, place, and time. No cranial nerve deficit. Skin: Skin is warm and dry. No rash noted. No erythema. DATA none ASSESSMENT Tara Yun is a 57 y.o. female with a past medical history significant for chronic back pain, drug seeking behavior, liver cirrhosis s/p QUIROZ and obesity presenting to establish care with PCP. After discussion with Dr. Lowery, I agree that patient's history of drug seeking behavior and the complexities of benzodiazepine/opiate taper make her inappropriate for resident clinic. Dr. Lowery and I discussed with patient the reasons why she would not be a good fit. She expressed her desire not to see Dr. Tijerina again. We advised her to [facility] an appointment [facility] or [place]. She is amenable and would like to schedule an appointment with Dr. Pitts as well. 1. Annual physical exam 2. Other cirrhosis of liver (HCC) 3. Hematuria, gross 4. Other specified hypothyroidism 5. Chronic midline low back pain without sciatica 6. Hypersplenism syndrome 7. Pancytopenia (HCC) PLAN Tara was seen today for new patient visit. Diagnoses and all orders for this visit: Annual physical exam Naty Evans MD * Segundo Lowery MD - 09/30/2017 3495 EST Attestation statement: I personally reviewed the case with the resident at the time of the visit and agree with the residents history, physical, assessment, and plan as documented in the record. Segundo Lowery MD documented in this encounter Plan of Treatment Upcoming Encounters Date Type Department Care Team (Late st Contact Info) Description 01/04/2025 13:00 EST Office Visit [facility] Ophthalmology - [address] [phone] Gagandeep Rome MD [address] [place] [address] 5 [place] [address] 02/11/2025 13:30 EDT Telemedicine [facility] Hematology & Oncology - [address] [address] Dana Padilla MD [address] [place] [address] 2 [place] [address] documented as of this encounter Visit Diagnoses Diagnosis Annual physical exam- Primary Routine general medical examination at a health care facility Other cirrhosis of liver ([facility]-CMS) Hematuria, gross Gross hematuria Other specified hypothyroidism Chronic midline low back pain without sciatica Hypersplenism syndrome Hypersplenism Pancytopenia ([facility]-CMS) Other pancytopenia documented in this encounter Discontinued Medications Medication Sig Discontinue Reason Start Date End Da te ALPRAZolam (XANAX) 1 mg tablet Take 1 mg by mouth 3 times daily. 09/30/2017 documented as of this encounter Historical Medications * This list may reflect changes made after this encounter. ALPRAZolam (XANAX) 0.5 mg tablet Take 0.5 mg by mouth 3 times daily. 09/12/2017 01/05/2019 gabapentin (NEURONTIN) 300 mg capsule Take 300 mg by mouth 3 times daily. 01/03/2019 added in this encounter Care Teams Pasteurizer Helper Relationship Specialty Start Date End Date Hardik Viramontes MD 1 [facility] 1 [place] [phone] PCP - General 09/30/17 02/07/18 Naty Evans MD [address] [place] [address] [place] [phone] PCP - Alternate 09/30/17 04/11/19 documented as of this encounter
--- OUTSIDE RECORDS SUMMARY | 2024-11-22 17:27 | XMS_ITS | Encounter Summary ---
Author Organization [facility] Address [address] [place] [address] Care Team Providers Care House Decorator Name Role Phone Naty Evans MD Unavailable Segundo Weems MD Primary Care Provider [phone] Encounter Details Date Type Department Care Team (Late st Contact Info) Description 05/18/2018 11:31 EDT - 05/18/2018 23:59 EDT Hospital Encounter [facility] [address] [place] [address] Aj Issa MD 7 [facility] [address] [place] [address] Discharge Disposition: Home or Self [...] 13:00 EST Office Visit [facility] Ophthalmology [address] [phone] Gagandeep Rome MD [address] [place] [address] 5 [place] [phone] 02/11/2025 13:30 EDT Telemedicine [facility] Hematology & Oncology [address] [phone] Dana Padilla MD [address] [place] [address], [facility] 2 [place] [address] documented as of this encounter Visit Diagnoses Not on filedocumented in this encounter Care Teams House Decorator Relationship Specialty Start Date End Date Naty Evans MD [address] [place] [address] [place] [phone] PCP - Alternate 09/30/17 04/11/19 Segundo Weems MD [address] [place] [address] [address] [place], [place] [phone] PCP - General 02/08/18 07/28/18 documented as of this encounter
--- OUTSIDE RECORDS SUMMARY | 2024-11-22 17:27 | XMS_ITS | Encounter Summary ---
Author Organization [facility] Address [address] [place] [address] Care Team Providers Care Lifeguard Name Role Phone Naty Evans MD Unavailable Segundo Weems MD Primary Care Provider [phone] Encounter Details Date Type Department Care Team (Late st Contact Info) Description 02/08/2018 Results Only [facility] [phone] Segundo Weems MD [address] [place] [address] Social History Tobacco Use Types [...] Date of Assessment Author No 09/09/2017 9:36 EDT Inderjit Queen RN documented as of this encounter Mental Status * Because of a physical, mental, or emotional condition, does this person have serious difficulty concentrating, remembering, or making decisions? Answer Entry Date Author No 09/09/2017 9:36 EDT Inderjit Queen RN documented in this encounter Plan of Treatment Upcoming Encounters Date Type Department Care Team (Late st Contact Info) Description 01/04/2025 13:00 EST Office Visit [facility] Ophthalmology [address] [phone] Gagandeep Rome MD [address] [place] [address] 5 [place] [address] 02/11/2025 13:30 EDT Telemedicine [facility] Hematology & Oncology [address] [phone] Dana Padilla MD [address] [place] [address], [facility] 2 [place] [address] documented as of this encounter Procedures Procedure Name Priority Date/Time Associated Diagnosis Comments PROTIME Routine 02/08/2018 17:14 EDT documented in this encounter Results * (ABNORMAL) PROTIME (02/08/2018 17:14 EDT) Pro Time 14.0(H) 10.3 - 13.4 secs 02/08/2018 21:28 EDT [facility] Comment:NOTE NEW REFERENCE Amelia POLANCO OF DEC 22 2017 I.N.R. 1.2(H) 0.9 - 1.1 Ratio 02/08/2018 21:28 EDT [facility] Comment: Moderate Intensity Coumadin INR = 2.0-3.0 Adjustments in anticoagulant therapy dose should be based upon the INR and NOT the Pro Time. BLOOD SPECIMEN / Unknown 02/08/2018 17:14 EDT 02/08/2018 20:39 EDT us Segundo Weems MD HEMATOLOGY & PF4 ORDERABLES F inal Result [facility] [address] [place] [address] documented in this encounter Visit Diagnoses Not on filedocumented in this encounter Care Teams Lifeguard Relationship Specialty Start Date End Date aNty Evans MD [address] [place] [address] [place] [phone] PCP - Alternate 09/30/17 04/11/19 Segundo Weems MD [address] [place] [address] [place] [phone] PCP - General 02/08/18 07/28/18 documented as of this encounter
--- OUTSIDE RECORDS SUMMARY | 2024-11-22 17:28 | XMS_ITS | Encounter Summary ---
Author Organization [facility] Address [address] [place] [address] Care Team Providers Care Public Weigher Name Role Phone None, Provider Primary Care Provider Unavailabl e Reason for Referral * Consult (Routine/Next Available) - Closed Specialty Diagnoses / Procedures Referred By Serene huitron Referred To Contact Urology Diagnoses Hematuria Starr Paige MD Phone: tel: fax: Referral ID Status Reason Start Date Expiration Date V isits Requested Visits Authorized [id number] Closed Specialty Services Required 07/15/2017 1 1 Question Answer Reason for Request: hematuria Reason for Visit * Reason Comments New Patient Visit * Consult (Routine) - Closed Specialty Diagnoses / Procedures Referred By Serene huitron Referred To Contact Hematology Diagnoses Pancytopenia (HCC-CMS) Splenic vein thrombosis Marisela Cunningham MD Phone: tel: fax: Referral ID Status Reason Start Date Expiration Date V isits Requested Visits Authorized [id number] Closed Specialty Services Required 02/23/2017 1 1 Encounter Details Date Type Department Care Team (Late st Contact Info) Description 07/15/2017 13:00 EDT Office Visit [facility] Hematology & Oncology - [facility] [address] [place] [address] Starr Paige MD [address] [place] [address] Hematuria (Primary Dx) Discharge Disposition: Auto Discharge Social History Tobacco Use Types Packs/Day Years Used Date Smoking Tobacco: Every Day Cigarettes 0.5 20 Smokeless Tobacco: Never Alcohol Use Standard Drinks/Week Comments No 0 (1 standard drink = 0.6 oz pur e alcohol) Comments Unknown Sex and Gender Information Value Date Recorded Sex Assigned at Female 03/01/2024 9:25 EDT Legal Sex Female 18:05 EST Gender Identity Female 10/03/2019 16:15 EST Sexual Orientation Not on file documented as of this encounter Last Filed Vital Signs Vital Sign Reading Time Taken Comments Blood Pressure 127/66 07/15/2017 1317 EDT Pulse 103 07/15/2017 1317 EDT Temperature 36.4 ??C (97.6 ??F) 07/15/2017 1317 EDT Respiratory Rate 16 07/15/2017 1317 EDT Oxygen Saturation 98% 07/15/2017 1317 EDT Inhaled Oxygen Concentration - - Weight 94.6 kg (208 lb 9.6 oz) 07/15/2017 1317 E DT Height 165.1 cm (5' 5) 07/15/2017 1317 EDT Body Mass Index 34.71 07/15/2017 1317 EDT documented in this encounter Functional Status * Are you deaf or do you have serious difficulty hearing? Answer Date of Assessment Author No 02/21/2017 22:30 EDT Florentin Edmond RN * Are you blind or do you have serious difficulty seeing, even when wearing glasses? Answer Date of Assessment Author No 02/21/2017 22:30 EDT Florentin Edmond RN * Do you have serious difficulty walking or climbing stairs? (5 years old or older) Answer Date of Assessment Author No 02/21/2017 22:30 EDT Florentin Edmond RN * Do you have difficulty dressing or bathing? (5 years old or older) Answer Date of Assessment Author No 02/21/2017 22:30 EDT Florentin Edmond RN * Because of a physical, mental, or emotional condition, do you have difficulty doing errands alone such as visiting a doctor's office or shopping? (15 years old or older) Answer Date of Assessment Author No 02/21/2017 22:30 EDT Florentin Edmond RN documented as of this encounter Mental Status * Because of a physical, mental, or emotional condition, do you have serious difficulty concentrating, remembering, or making decisions? (5 years old or older) Answer Entry Date Author No 02/21/2017 22:30 EDT Florentin Edmond RN documented in this encounter Discharge Diagnoses Diagnosis D61.818 Other pancytopenia-D61.818[ICD-10-CM] R31.9 Hematuria, unspecified-R31.9[ICD-10-CM] documented in this encounter Discharge Disposition Disposition Code Departure Means Destination Auto Discharge documented in this encounter Progress Notes * Starr Paige MD - 07/15/2017 1300 EDT Hematology consultation note. Date: 07/16/2017 DIAGNOSIS: Pancytopenia associated with liver cirrhosis and [...] hepatic encephalopathy is being transferring care from [facility] to [facility] because ofrelocation. Patient is following Dr. Ijeoma Smith, GI Department in [facility] for long-standing decompensated liver cirrhosis, portal hypertension and hepatic encephalopathy. She was also formerly seen by hematology oncology clinic in [facility], underwent bone marrow biopsy for pancytopenia in [...] Dr. Dickens although then relocated to [place]. Her most recent CBC showed WBC 1.99 with ANC 1.3, resolution of anemia, stable thrombocytopenia at 54K. his CMP profile is otherwise unremarkable with normal liver function tests. Her most recent ultrasound of the abdomen show enlarged spleen measuring 21 x 12.6 x 17.3 cm. NormalDoppler floor within the splenic artery and vein. ROS: 10 review of system is completed and is negative, except for the pertinent positives noted above. PAST MEDICAL HISTORY: Past Medical History: Diagnosis Date ??? Asthma ??? Bleeding disorder ??? Cirrhosis of liver ??? Drug-seeking behavior Per Dr Amelia Tijerina and notes from [facility] patient misconstrued information to several providers about multiple concurrent opiate prescriptions ??? Heartburn ??? Hypersplenism syndrome ??? Rheumatoid arthritis PAST SURGICAL HISTORY: Past Surgical History: Procedure Laterality Date ??? APPENDECTOMY ??? CHOLECYSTECTOMY ??? HERNIA REPAIR ??? HYSTERECTOMY ??? KNEE SURGERY ??? TONSILLECTOMY ALLERGIES: Morphine; Tylenol [acetaminophen]; Toradol [ketorolac]; Aspirin; Reglan [metoclopramide hcl]; and Sulfa (sulfonamide antibiotics) MEDICATIONS: ALPRAZolam, LEVOTHYROXINE SODIUM, albuterol, ferrous gluconate, fluticasone, pantoprazole, and rifAXImin SOCIAL HISTORY: Social History Social History ??? Marital status: Single Spouse name: N/A ??? Number of children: N/A ??? Years of education: N/A Social History Main Topics ??? Smoking status: Current Every Day Smoker Packs/day: 0.50 Years: 20.00 ??? Smokeless tobacco: Never Used ??? Alcohol use No ??? Drug use: No ??? Sexual activity: Not Asked Other Topics Concern ??? None Social History Narrative FAMILY HISTORY: Family History Problem Relation Age of Onset ??? Cancer Maternal Grandmother PHYSICAL EXAMINATION: BP 127/66 Pulse 103 Temp 36.4 ??C (97.6 ??F) (Tympanic) Resp 16 Ht 165.1 cm (65) Wt 94.6kg (208 lb 9.6 oz) SpO2 98% BMI 34.71 kg/m2 Constitutional: alert and oriented to person, place, [...] thought content normal. LABS REVIEWED: Results for [facility] Doug ( ) as of 07/16/2017 14:47 Ref. Range 07/15/2017 12:04 WBC Latest Ref Range: 4.0 - 12.4 K/cmm 1.99 (L) RBC Latest Ref Range: 3.86 - 5.04 M/cmm 4.31 Hemoglobin Latest Ref Range: 11.6 - 15.2 gm/dl 12.6 HCT Latest Ref Range: 34.9 - 44.4 % 36.8 MCV Latest Ref Range: 81 - 98 fl 85 MCH Latest Ref Range: 26.7 - 33.3 pg 29.2 MCHC Latest Ref Range: 32.1 - 35.9 gm/dl 34.2 RDW-CV Latest Ref Range: <14.7 % 14.7 (H) RDW-SD Latest Ref Range: <50.4 fl 46.2 PLT Latest Ref Range: 141 - 377 K/cmm 54 (L) MPV Latest Ref Range: 9.5 - 12.7 fl 10.4 Neutrophils Latest Units: % 69.0 Lymphocytes Latest Units: % 22.0 Monocytes Latest Units: % 7.0 Eosinophils Latest Units: % 1.0 Basophils Latest Units: % 1.0 ABS Neutrophils Latest Ref Range: 2.20 - 8.85 K/cmm 1.37 (L) ABS Lymphs Latest Ref Range: 1.09 - 3.30 K/cmm 0.44 (L) ABS Monocytes Latest Ref Range: 0.1 - 0.8 K/cmm 0.14 ABS Eosinophils Latest Ref Range: 0.03 - 0.61 K/cmm 0.02 (L) ABS Basophils Latest Ref Range: 0.01 - 0.11 K/cmm 0.02 Type of Diff: Unknown Manual SPEP; 03/2013: igG kappa 0.28 g/dl; repeated in 10/2016 - negative for M protein ([facility]) IMAGING REVIEWED: June 01, 2017: Findings: ? [...] left kidney and bladder. ?? 2. Splenomegaly PATHOLOGY: Bone marrow biopsy 04/09/2013: (Performed at [facility]) ---Diagnosis--- ? 1. Progressive pancytopenia, chronic Hep [...] of a clonal population. ASSESSMENT AND PLAN: 56 years old white female with past medical history mentioned above is being referred for further evaluation of pancytopenia; - Her pancytopenia is likely associated with underlying decompensated liver cirrhosis as well as severe hepatosplenomegaly and hypersplenism. - Patient was formerly evaluated at [facility] with subsequent bone marrow biopsy that showed no evidenceof clonal population or any maturation defects, her repeated monoclonal panel show no evidence of monoclonal protein in October 2016 Recommended the patient to continue follow with her GI provider at [facility], provided the patient with contact information to establish care with primary care at [facility]. - due to persistent hematuria will refer patient back to urology for further evaluation. Plan: - Establish care with primary care provider at [facility] (contacts are provided) - Refer to urology for persistent hematuria and evaluation for recurrence of the kidney stone - Return as needed. Starr Paige Hematology and Oncology I spent 60 minutes face to face time with the patient, and 50 minutes of that time were spent in [...] Office Visit [facility] Ophthalmology - [address] [id number] Gagandeep Rome MD [address] [place] [address], [facility] [address] [place] [address] 02/11/2025 13:30 EDT Telemedicine [facility] Hematology & Oncology - [address] [id number] Dana Padilla MD [address] [place] [address], [facility] [address] [place] [address] Scheduled Referrals Name Type Priority Associated Diagnoses Orde r Schedule AMB CONS/FOLLOW UP UROLOGY Outpatient Referral Routine Hematuria Ordered: 07/15/2017 documented as of this encounter Visit Diagnoses Diagnosis Hematuria- Primary Hematuria, unspecified documented in this encounter Care Teams Public Weigher Relationship Specialty Start Date End Date None, Provider PCP - General 03/25/17 09/08/17 documented as of this encounter
--- OUTSIDE RECORDS SUMMARY | 2024-11-22 17:28 | XMS_ITS | Encounter Summary ---
Author Organization [facility] Address [address] [place] [address] Care Team Providers Care Public Opinion Survey Taker Name Role Phone None, Provider Primary Care Provider Unavailabl e Reason for Visit * Reason Comments Hematuria pt reports i starte d bleeding again when I pee. Pt states seeing 4 specialists, but we don't know what is wrong. No distress noted. Flank Pain right flank pain, fe eling short of breath Encounter Details Date Type Department Care Team (Late st Contact Info) Description 08/20/2017 22:20 EDT - 08/21/2017 2:06 EDT Emergency [facility] Emergency Department - Main [address] [address] Scottie Camarena MD [address] [place] [address], [address] [place] [address] Emergency, MD Rolando Left flank pain (Primary Dx); Gross hematuria Discharge Disposition: [...] Sign Reading Time Taken Comments Blood Pressure 158/88 08/21/2017205 EDT Pulse 90 08/20/20172227 EDT Temperature 36.3 ??C (97.3 ??F) 08/20/20172227 EDT Respiratory Rate 14 08/21/2017205 EDT Oxygen Saturation 97% 08/21/2017 020 EDT Inhaled Oxygen Concentration - - Weight [...] documented in this encounter Discharge Diagnoses Diagnosis R31.9 Hematuria, unspecified-R31.9[ICD-10-CM] R10.12 Left upper quadrant pain-R10.12[ICD-10-CM] R60.0 Localized edema-R60.0[ICD-10-CM] K76.0 Fatty (change of) liver, not elsewhere classified-K76.0[ICD-10-CM] D61.818 Other pancytopenia-D61.818[ICD-10-CM] D73.1 Hypersplenism-D73.1[ICD-10-CM] K74.60 Unspecified cirrhosis of liver-K74.60[ICD-10-CM] K76.6 Portal hypertension-K76.6[ICD-10-CM] J45.909 Unspecified asthma, uncomplicated-J45.909[ICD-10-CM] M06.9 Rheumatoid arthritis, unspecified-M06.9[ICD-10-CM] F17.210 Nicotine dependence, cigarettes, uncomplicated-F17.210[ICD-10-CM] Z87.442 Personal history of urinary calculi-Z87.442[ICD-10-CM] Z88.6 Allergy status to analgesic agent status-Z88.6[ICD-10-CM] Z88.5 Allergy status to narcotic agent status-Z88.5[ICD-10-CM] Z88.2 Allergy status to sulfonamides status-Z88.2[ICD-10-CM] Z79.899 Other manager long term care (current) drug therapy-Z79.899[ICD-10-CM] documented in this encounter Discharge Instructions * Discharge Instructions* Scottie Camarena MD - 08/21/2017 1:32 EDT Symptoms and test results are most consistent with you likely having passed a small left-sided kidney stone. CT done tonight does not show any evidence of persistent stone. Continue current medications as prescribed. You may use the hydromorphone 2 mg every 6 hours as needed for residual pain. Follow-up as scheduled with Dr. Jordan Dickens on September 08. Call sooner or return to this emergency department as needed if symptoms worsen or change in character. documented in this encounter Medications at Time of Discharge albuterol 90 mcg/actuation inhaler Inhale 2 Puffs as directed every 4 hours as needed. 09/18/2021 ALPRAZolam (XANAX) 1 mg tablet Take 1 mg by mouth 3 times daily. 09/30/2017 ERGOCALCIFEROL, VITAMIN D2, (VITAMIN D ORAL) Take by mouth. 01/2021 ferrous gluconate (FERGON) 324 mg (38 mg iron) tablet Take 324 mg by mouth daily with breakfast. 04/23/2021 fluticasone (FLOVENT) 110 mcg/actuation inhaler Inhale 110 mcg as directed 2 times daily. 11/26/2019 LEVOTHYROXINE SODIUM (LEVOTHYROXINE ORAL) Take 25 mcg by mouth daily. Unknown dose 11/03/2020 pantoprazole (PROTONIX) 40 mg tablet Take 40 mg by mouth daily. 01/03/2019 rifAXImin (XIFAXAN) 550 mg tablet Take 550 mg by mouth 2 times daily 01/03/2019 documented as of this encounter Discharge Disposition Disposition Code Departure Means Destination Home or Self Care documented in this encounter ED Notes * Fausto Dunlap - 08/20/2017 2174 EDT Blood drawn via saline lock per protocol, tiger and purple tube(s) sent to lab per order. * Arlette Arroyo RN - 08/20/2017 2313 EDT Report to Bhaskar Gonsales care of patient transferred * Scottie Camarena MD - 08/20/2017 2312 EDT DOS: 08/20/2017 Chief Complaint Patient presents with ??? Hematuria pt reports i started bleeding again when I pee. Pt states seeing 4 specialists, but we don't know what is wrong. No distress noted. ??? Flank Pain right flank pain, feeling short of breath HPI HPI Comments: I, Chanell Peterson, am scribing for Scottie Camarena MD while he/she is personally performing the service. Chanell Peterson 08/20/2017 23:14 Tara Yun is a 57 y.o. female with a history of NAFLD, pancytopenia, low platelet count, hypersplenism syndrome, and kidney stones who presents with 1 day of hematuria and 3 hours of R flank pain with associated nausea. Pt states the pain feels similar to previous kidney stones. She notes a low grade fever (TMAX ~100 F) earlier today and one episode of emesis. Pt was recently admitted to the hospital for hypotension. Pt denies increased urinary frequency. The history is provided by the patient. Hematuria Pain quality: Sharp Pain severity: Severe Onset quality: Sudden Duration: 3 hours Timing: Constant Progression: Unchanged Chronicity: New Recent urinary tract infections: no Relieved by: None tried Ineffective treatments: Cranberry juice Urinary symptoms: hematuria Associated symptoms: fever, flank pain, nausea and vomiting Risk factors: hx of urolithiasis Flank Pain Pain location: R flank Pain quality: sharp Pain severity: Severe Onset quality: Sudden Duration: 3 hours Timing: Constant Chronicity: New Relieved by: Nothing Ineffective treatments: cranberry juice. Associated symptoms: fever, hematuria, nausea and vomiting Review of Systems Review of Systems Constitutional: Positive for fever. Gastrointestinal: Positive for nausea and vomiting. Genitourinary: Positive for flank pain and hematuria. Negative for frequency. All other systems reviewed and are negative. The patient's past medical, family and social history was reviewed and updated as needed. Allergies Allergen Reactions ??? Morphine Anaphylaxis ??? Tylenol [Acetaminophen] Other (See Comments) Contraindication with medical hx ??? Toradol [Ketorolac] Shortness Of Breath ??? Aspirin Other (See Comments) Contraindication with medical hx ??? Reglan [Metoclopramide Hcl] Rash ??? Sulfa (Sulfonamide Antibiotics) Rash Vital Signs Temp: 36.3 ??C (97.3 ??F) Pulse: 90 Heart Rate: 82 BPM Resp: 14 SpO2: 97 % BP: (!) 158/88 O2 Device: None (Room air) Physical Exam Constitutional: She is oriented to person, place, and time. She appears well- developed and well-nourished. She is cooperative. No distress. HENT: Head: Normocephalic. Nose: Nose normal. Mouth/Throat: Oropharynx is clear and moist. Eyes: Conjunctivae and EOM are normal. Pupils are equal, round, and reactive to light. No scleral icterus. Cardiovascular: Normal rate, regular rhythm, S1 normal and S2 normal. Exam reveals no friction rub. No murmur heard. Pulmonary/Chest: Effort normal and breath sounds normal. No respiratory distress. Abdominal: Soft. Bowel sounds are normal. There is tenderness in the left upper quadrant. There is CVA tenderness (R). There is no guarding. Musculoskeletal: Normal range of motion. She exhibits no edema or tenderness. Trace pedal edema Neurological: She is alert and oriented to person, place, and time. No cranial nerve deficit or sensory deficit. Coordination normal. Skin: Skin is warm and dry. No erythema. No pallor. Psychiatric: She has a normal mood and affect. Her behavior is normal. Thought content normal. Nursing note and vitals reviewed. RESULTS EKG orders: None Radiology orders: CT RENAL COLIC WO CONTRAST 1. No new abdominal abnormality. Specifically, no acute upper urinary tract pathology. 2. Cirrhosis with findings of portal hypertension including, with marked portal and splenic vein dilation and severe splenomegaly. 3. Status post ventral hernia repair, hysterectomy, and cholecystectomy. ED Lab Results Labs Reviewed HEMAGRAM AND DIFFERENTIAL - Abnormal Result Value Status WBC 1.13 (*) Final PLT 45 (*) Final ABS Neutrophils 0.83 (*) Final ABS Lymphs 0.25 (*) Final ABS Monocytes 0.03 (*) Final ABS Eosinophils 0.01 (*) Final RBC 4.13 Final Hemoglobin 11.6 Final HCT 35.6 Final MCV 86 Final MCH 28.1 Final MCHC 32.6 Final RDW-CV 14.4 Final RDW-SD 45.3 Final MPV 9.7 Final Neutrophils 73.0 Final Lymphocytes 22.0 Final Monocytes 3.0 Final Eosinophils 1.0 Final Basophils 1.0 Final ABS Basophils 0.01 Final Type of Diff: Manual Final BACTERIAL CULTURE, URINE Result Final Value: Less than 10,000 CFU/ml Mixed gram positive and gram negative organisms URINALYSIS MICROSCOPIC ONLY WBC, UA 5 to 10 Final RBC, UA Innum Final Squam Epithel, UA None seen Final Renal Epithel, UA None seen Final Bacteria, UA None seen Final Crystals, UA None seen Final Casts, UA None seen Final UA Comment Microscopic results Final Mucus, UA Present Final BASIC METABOLIC PANEL Sodium 144 Final Potassium 3.9 Final Chloride 108 Final CO2 29 Final BUN 17 Final Creatinine 0.78 Final GFR, Calculated 85 Final Calcium 9.0 Final Calculated Calcium 9.1 Final Glucose, Serum 93 Final Fasting? Unknown Final LIPASE Lipase 57 Final Patient had labs that were reviewed independently. See above. Relevant Data Procedures ED COURSE A medical screening exam was performed. Recurrent left flank pain with gross hematuria consistent with probable passage of stone. Urine culture, UA, BMP, hemagram and differential, and lipase ordered. Labs reviewed. See above. Renal colic CT is performed. See above. Pt administered 4mg Zofran injection, 1mg Dilaudid injection, and hydrated with 1L lactated ringersbolus. ASSESSMENT AND PLAN Final diagnoses: Left flank pain Gross hematuria DISPOSITION: Discharged The patient's pain was managed to an adequate level weighing risk vs. benefit of further medications. Upon departure from the Emergency Department, the patient's pain was 5 on a zero to ten scale. Any further pain treatment will be at the discretion of the provider following up with the patient based on their clinical assessment. Condition at departure from the Emergency Department: Improved PCP: Provider None MDM Number of Diagnoses or Management Options Amount and/or Complexity of Data Reviewed Clinical lab tests: ordered and reviewed Tests in the radiology section of CPT??: ordered and reviewed Independent visualization of images, tracings, or specimens: yes This documentation is recorded by Chanell Peterson acting as Scribe under the direction and presence of Scottie Camarena MD. Scottie Camarena MD: I personally performed the services recorded by the scribe in my presence. I confirm the scribe's documentation has been reviewed by me to accurately and completely record my work, treatment, procedures, and medical decision making. 08/22/2017 10:45 No flowsheet data found. documented in this encounter Plan of Treatment Upcoming Encounters Date Type Department Care Team (Late st Contact Info) Description 01/04/2025 13:00 EST Office Visit [facility] Ophthalmology - [address] [id number] Gagandeep Rome MD [address] [place] [address] [address] [place] [id number] 02/11/2025 13:30 EDT Telemedicine [facility] Hematology & Oncology [address] [id number] Dana Padilla MD [address] [place] [address], [address] [place] [address] documented as of this encounter Procedures Procedure Name Priority Date/Time Associated Diagnosis Comments CT RENAL COLIC WO CONTRAST STAT 08/21/2017 0:06 EDT COMPLETE BLOOD COUNT AND DIFFERENTIAL STAT 08/20/2017 23:37 EDT BACTERIAL CULTURE, URINE STAT 08/20/2017 23:37 EDT LIPASE STAT 08/20/2017 23:37 EDT BASIC METABOLIC PANEL (BMP) STAT 08/20/2017 23:37 EDT URINE SEDIMENT (MICRO) WITHOUT REFLEX TO CULTURE STAT 08/20/2017 23:36 EDT documented in this encounter Results * CT RENAL COLIC WO CONTRAST (08/21/2017 0:06 EDT) Anatomical Region Laterality Modality Other 08/21/2017 0:06 EDT 08/21/2017 9:56 EDT Narrative 08/21/2017 9:[address] RENAL COLIC ??08/21/2017 12:06 AM Signs and Symptoms/Comments: ?? Left flank pain and hematuria . Technique: Axial CT images obtained from abdomen immediately superior to level of kidneys through the pelvis without administration of contrast of any kind. Sagittal and coronal reformats generated. Comparison: CT renal colic 05/04/2017 Findings: Kidneys and ureters: The kidneys are normal with hydronephrosis. The ureters are normal in caliber level of the urinary bladder. Of note, a rounded calcification (axial 167) is thought to be within a venous structure as the ureter is identified separate from this calcification. Bladder: Incompletely distended but within normal limits Uterus, adnexa: Administration is status post hysterectomy. No pelvic mass is identified. Included lung bases: Clear Unenhanced liver and spleen, as far as included: Though not entirely included, the patient's splenomegaly is unchanged. Spleen measures 18 x 20 x 8 cm approximately 1400 cc in volume. Hepatic cirrhosis is again identified. There is marked elevation of the portal vein measuring 2.9 cm. No contour deforming lesion is identified. Gallbladder, pancreas adrenal glands: The gallbladder is surgically absent. No biliary ductal dilatation is identified. The adrenal glands and pancreas are within normal limits Bowel: There is no large or small bowel obstruction. There is diverticulosis of the sigmoid colon without evidence of diverticulitis. Peritoneal cavity: No free fluid, fluid collection, or free air is identified. There is diffuse but stable hazy appearance of the mesentery. Abdominal wall: Evidence of prior anterior abdominal wall hernia repair to the right of midline is redemonstrated and unchanged. No bowel containing hernia is identified. Lymphovascular: No pathologically enlarged lymph nodes are present within the abdomen or pelvis. A likely calcified lymph node is identified within the right lower quadrant (axial 151). The abdominal aorta demonstrates mild with atherosclerotic disease with no aneurysm. The unenhanced IVC and portal veins are within normal limits. The splenic vein remains dilated measuring up to 2.3 cm similar as on the prior exam. Perigastric and mesenteric varices are present. Musculoskeletal: There are multilevel degenerative changes throughout the lumbar spine. No suspicious osseous lesion is identified. Impression: 1. No new abdominal abnormality. Specifically, no acute upper urinary tract pathology. 2. Cirrhosis with findings of portal hypertension including, with marked portal and splenic vein dilation and severe splenomegaly. 3. Status post ventral hernia repair, hysterectomy, and cholecystectomy. I have personally reviewed the images and the above interpretation and agree with the findings. Procedure Note Ry Verde MD - 08/21/2017 CT RENAL COLIC 08/21/2017 12:06 AM Signs and Symptoms/Comments: Left flank pain and hematuria . Technique: Axial CT images obtained from abdomen immediately superior to level of kidneys through the pelvis without administration of contrast of any kind. Sagittal and coronal reformats generated. Comparison: CT renal colic 05/04/2017 Findings: Kidneys and ureters: The kidneys are normal with hydronephrosis. The ureters are normal in caliber level of the urinary bladder. Of note, a rounded calcification (axial 167) is thought to be within a venous structure as the ureter is identified separate from this calcification. Bladder: Incompletely distended but within normal limits Uterus, adnexa: Administration is status post hysterectomy. No pelvic mass is identified. Included lung bases: Clear Unenhanced liver and spleen, as far as included: Though not entirely included, the patient's splenomegaly is unchanged. Spleen measures 18 x 20 x 8 cm approximately 1400 cc in volume. Hepatic cirrhosis is again identified. There is marked elevation of the portal vein measuring 2.9 cm. No contour deforming lesion is identified. Gallbladder, pancreas adrenal glands: The gallbladder is surgically absent. No biliary ductal dilatation is identified. The adrenal glands and pancreas are within normal limits Bowel: There is no large or small bowel obstruction. There is diverticulosis of the sigmoid colon without evidence of diverticulitis. Peritoneal cavity: No free fluid, fluid collection, or free air is identified. There is diffuse but stable hazy appearance of the mesentery. Abdominal wall: Evidence of prior anterior abdominal wall hernia repair to the right of midline is redemonstrated and unchanged. No bowel containing hernia is identified. Lymphovascular: No pathologically enlarged lymph nodes are present within the abdomen or pelvis. A likely calcified lymph node is identified within the right lower quadrant (axial 151). The abdominal aorta demonstrates mild with atherosclerotic disease with no aneurysm. The unenhanced IVC and portal veins are within normal limits. The splenic vein remains dilated measuring up to 2.3 cm similar as on the prior exam. Perigastric and mesenteric varices are present. Musculoskeletal: There are multilevel degenerative changes throughout the lumbar spine. No suspicious osseous lesion is identified. Impression: 1. No new abdominal abnormality. Specifically, no acute upper urinary tract pathology. 2. Cirrhosis with findings of portal hypertension including, with marked portal and splenic vein dilation and severe splenomegaly. 3. Status post ventral hernia repair, hysterectomy, and cholecystectomy. I have personally reviewed the images and the above interpretation and agree with the findings. Scottie Camarena MD IMG CT ORDERABLES Final Res ult * LIPASE (08/20/2017 23:37 EDT) Lipase 57 <251 U/L 08/21/2017 0:14 EDT [facility] Blood specimen (specimen) BLOOD SPECIMEN / Unknown 08/20/2017 23:37 EDT 08/20/2017 23:57 EDT Scottie Camarena MD CHEMISTRY & BLOOD GAS ORDER YANN Final Result [facility] [address] [place] [address] * (ABNORMAL) HEMAGRAM AND DIFFERENTIAL (08/20/2017 23:37 EDT) WBC 1.13(L) 4.0 - 12.4 K/cmm 08/21/2017 0:05 [facility] RBC 4.13 3.86 - 5.04 M/cmm 08/21/2017 0:05 [facility] Hemoglobin 11.6 11.6 - 15.2 gm/dl 08/21/2017 0:05 [facility] HCT 35.6 34.9 - 44.4 % 08/21/2017 0:05 [facility] MCV 86 81 - 98 fl 08/21/2017 0:05 [facility] MCH 28.1 26.7 - 33.3 pg 08/21/2017 0:05 [facility] MCHC 32.6 32.1 - 35.9 gm/dl 08/21/2017 0:05 [facility] RDW-CV 14.4 <14.7 % 08/21/2017 0:05 [facility] RDW-SD 45.3 <50.4 fl 08/21/2017 0:05 [facility] PLT 45(L) 141 - 377 K/cmm 08/21/2017 0:05 [facility] MPV 9.7 9.5 - 12.7 fl 08/21/2017 0:05 [facility] Neutrophils 73.0 % 08/21/2017 0:34 [facility] Lymphocytes 22.0 % 08/21/2017 0:34 [facility] Monocytes 3.0 % 08/21/2017 0:34 [facility] Eosinophils 1.0 % 08/21/2017 0:34 [facility] Basophils 1.0 % 08/21/2017 0:34 [facility] ABS Neutrophils 0.83(L) 2.20 - 8.85 K/cmm 08/21/2017 0:34 [facility] ABS Lymphs 0.25(L) 1.09 - 3.30 K/cmm 08/21/2017 0:34 [facility] ABS Monocytes 0.03(L) 0.1 - 0.8 K/cmm 08/21/2017 0:34 [facility] ABS Eosinophils 0.01(L) 0.03 - 0.61 K/cmm 08/21/2017 0:34 [facility] ABS Basophils 0.01 0.01 - 0.11 K/cmm 08/21/2017 0:34 [facility] Type of Diff: Manual 08/21/2017 0:34 [facility] Blood specimen (specimen) BLOOD SPECIMEN / Unknown 08/20/2017 23:37 EDT 08/20/2017 23:57 EDT Scottie Camarena MD PACKAGES & DNA PROBE ORDERA BLES Final Result [facility] [address] [place] [address] * BASIC METABOLIC PANEL (08/20/2017 23:37 EDT) Sodium 144 136 - 145 mEq/L 08/21/2017 0:14 [facility] Potassium 3.9 3.5 - 5.0 mEq/L 08/21/2017 0:14 [facility] Chloride 108 96 - 110 mEq/L 08/21/2017 0:14 [facility] CO2 29 22 - 32 mEq/L 08/21/2017 0:14 [facility] BUN 17 10 - 26 mg/dl 08/21/2017 0:14 [facility] Creatinine 0.78 0.52 - 1.04 mg/dl 08/21/2017 0:14 [facility] GFR, Calculated 85 >60 ml/min/1.7 3m2 08/21/2017 0:14 [facility] Comment: eGFR calculated using CKD-EPI equation for non Americans. Multiply eGFR by 1.16 for Americans. Calcium 9.0 8.5 - 10.5 mg/dl 08/21/2017 0:14 EDT [facility] Calculated Calcium 9.1 8.5 - 10.5 mg/dl 08/21/2017 0:14 EDT [facility] Glucose, Serum 93 70 - 100 mg/dl 08/21/2017 0:14 EDT [facility] Fasting? Unknown 08/20/2017 23:57 EDT [facility] Blood specimen (specimen) BLOOD SPECIMEN / Unknown 08/20/2017 23:37 EDT 08/20/2017 23:57 EDT Scottie Camarena MD CHEMISTRY & BLOOD GAS ORDER YANN Final Result Performing Organization Address City/[facility] Co de Phone Number [facility] [address] [place] [address] * BACTERIAL CULTURE, URINE (08/20/2017 23:37 EDT) Result Less than 10,000 CFU/ml Mixed gram positive and gram negative organisms 08/22/2017 6:50 EDT [facility] Urine specimen (specimen) URINE / Unknown 08/20/2017 23:37 EDT 08/21/2017 10:18 EDT Scottie Camarena MD MICROBIOLOGY - GENERAL ORDE [facility] Final Result Performing Organization Address City/[facility]/ZIP Co de Phone Number [facility] [address] [place] [address] * URINALYSIS MICROSCOPIC ONLY (08/20/2017 23:36 EDT) WBC, UA 5 to 10 0 - 5 /HPF 08/21/2017 0:14 EDT [facility] RBC, UA Innum 0 - 5 /HPF 08/21/2017 0:14 EDT [facility] Squam Epithel, UA None seen None seen /HPF 08/21/2017 0:14 EDT [facility] Renal Epithel, UA None seen None seen /HPF 08/21/2017 0:14 EDT [facility] Bacteria, UA None seen None seen /HPF 08/21/2017 0:14 EDT [facility] Crystals, UA None seen /HPF 08/21/2017 0:14 EDT [facility] Hyaline Casts, UA None seen /LPF 08/21/2017 0:14 EDT [facility] UA Comment Microscopic results 08/20/2017 23:22 EDT [facility] Comment: are unreliable on urines unrefrig >2hrs or refrig >8hrs. Mucus, UA Present 08/21/2017 0:14 EDT [facility] Urine specimen (specimen) URINE / Unknown 08/20/2017 23:36 EDT 08/20/2017 23:56 EDT Scottie Camarena MD URINALYSIS ORDERABLES Final Result Performing Organization Address City/State/[facility] Co de Phone Number [facility] [address] [place] [address] documented in this encounter Visit Diagnoses Diagnosis Left flank pain- Primary Abdominal pain, unspecified site Gross hematuria documented in this encounter Administered Medications Inactive Administered Medications - up to 3 most recent administrations Medication Order MAR Action Action Date Dose Rate Site HYDROmorphone (DILAUDID) injection 0.5 mg 0.5 mg, intravenous, NOW X1, 1 dose, On 08/21/17 at 0045, STAT Given 08/21/2017 1:02 EDT 0.5 mg HYDROmorphone (DILAUDID) injection 1 mg 1 mg, intravenous, NOW X1, 1 dose, On 08/20/17 at 2330, STAT Given 08/20/2017 23:54 EDT 1 mg Hydromorphone 2 mg Tab STARTER PACK 1 Package, oral, NOW X1, 1 dose, On 08/21/17 at 0130, STAT Given 08/21/2017 2:05 EDT 1 Package lactated ringers BOLUS 1,000 mL 1,000 mL, intravenous, NOW X1, 1 dose, On 08/20/17 at 2330, STAT New Bag 08/21/2017 0:19 EDT 1,000 mL ondansetron (PF) (ZOFRAN) injection 4 mg 4 mg, intravenous, NOW X1, 1 dose, On 08/20/17 at 2330, STAT Given 08/20/2017 23:54 EDT 4 mg ondansetron (PF) (ZOFRAN) injection 4 mg 4 mg, intravenous, NOW X1, 1 dose, On 08/21/17 at 0045, STAT Given 08/21/2017 1:02 EDT 4 mg documented in this encounter Historical Medications * This list may reflect changes made after this encounter. ERGOCALCIFEROL, VITAMIN D2, (VITAMIN D ORAL) Take by mouth. 04/23/2021 added in this encounter Active and Recently Administered Medications Times are shown in EDT. Scheduled Medication Order 08/19/2017 08/20/2017 08/21/2017 HYDROmorphone (DILAUDID) injection 0.5 mg (COMPLETED) 0.5 mg, intravenous, NOW X1, 1 dose, On 08/21/17 at 0045, STAT 0102 (Given - Provid er: Tomasz Shelton RN) HYDROmorphone (DILAUDID) injection 1 mg (COMPLETED) 1 mg, intravenous, NOW X1, 1 dose, On 08/20/17 at 2330, STAT 2354 (Given - Provider: Tomasz Shelton RN) Hydromorphone 2 mg Tab STARTER PACK (COMPLETED) 1 Package, oral, NOW X1, 1 dose, On 08/21/17 at 0130, STAT 0205 (Given - Provid er: Tomasz Shelton RN) lactated ringers BOLUS 1,000 mL (COMPLETED) 1,000 mL, intravenous, NOW X1, 1 dose, On 08/20/17 at 2330, STAT 0019 (New Bag - Provider: Tomasz Shelton RN) ondansetron (PF) (ZOFRAN) injection 4 mg (COMPLETED) 4 mg, intravenous, NOW X1, 1 dose, On 08/20/17 at 2330, STAT 2354 (Given - Provider: Tomasz Shelton RN) ondansetron (PF) (ZOFRAN) injection 4 mg (COMPLETED) 4 mg, intravenous, NOW X1, 1 dose, On 08/21/17 at 0045, STAT 0102 (Given - Provid er: Tomasz Shelton RN) documented in this encounter Orders Nursing Count Last Ordered Date First Orde red Date INSERT PERIPHERAL IV 1 08/20/2017 documented in this encounter Care Teams Public Opinion Survey Taker Relationship Specialty Start Date End Date None, Provider PCP - General 03/25/17 09/08/17 documented as of this encounter
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
--- OUTSIDE RECORDS SUMMARY | 2024-11-22 17:28 | XMS_ITS | Encounter Summary ---
Author Organization [facility] Address [address] [place] [address] Care Team Providers Care Platemaker Name Role Phone None, Provider Primary Care Provider Unavailabl e Encounter Details Date Type Department Care Team (Late st Contact Info) Description 08/29/2017 Results Only [facility] Urology - [facility] [address] [place] [address] Lon Ortez MD [address] [facility], [address] [place] [address] Social History Tobacco Use Types [...] Author No 08/24/2017 23:43 Inderjit Radford RN documented as of this encounter Mental Status * Because of a physical, mental, or emotional condition, do you have serious difficulty concentrating, remembering, or making decisions? (5 years old or older) Answer Entry Date Author No 08/24/2017 23:43 Inderjit Radford RN documented in this encounter Plan of Treatment Upcoming Encounters Date Type Department Care Team (Late st Contact Info) Description 01/04/2025 13:00 EST Office Visit [facility] Ophthalmology - [address] [phone] Gagandeep Rome MD [address] [place] [address], [facility] [address] [place] [address] 02/11/2025 13:30 EDT Telemedicine [facility] Hematology & Oncology [address] [phone] Dana Padilla MD [address] [place] [address], [address] [place] [address] documented as of this encounter Procedures Procedure Name Priority Date/Time Associated Diagnosis Comments CYTOPATHOLOGY Routine 08/29/2017 0:00 EDT documented in this encounter Results * CYTOPATHOLOGY (08/29/2017 0:00 EDT) Pathology Report: CYTOPATHOLOGY REPORT Reports generated via electronic interface contain original data; however they are lacking the format of the original report. Caution should be taken when reading/interpret ing unformatted reports. Name: ? RISSA YUN E ? Accession #: ? [id number] : ? 1960 (Age: 57) ??F ?Collect Date: ? 08/29/2017 Location: ? [facility] ? Receive Date: ? 08/30/2017 Provider: ? LON ORTEZ MD Copy to: ? CYTOLOGIC DIAGNOSIS: URINE, COLLECTION METHOD NOT SPECIFIED, CYTOLOGIC EVALUATION: - ??Negative for high grade urothelial carcinoma. - ??Red blood cells and squamous cell contamination. Document reviewed and electronically signed by: ? ROBSON DELONG MD Report Date: ??08/30/2017 16:07 By the signature above, the attending physician certifies that he/she has personally conducted a gross and/or microscopic examination of the described specimens and rendered or confirmed the above diagnosis. Specimen Type: ? Urine, NOS Clinical History: ? Gross hematuria. clinical diagnosis code: ??R31.0. ? Gross Description: ? 20ccs of cloudy ange fluid were received and processed by selective cellular enhancement technique. ? End of Report [facility] 08/29/2017 08/30/2017 7:4 6 EDT us Lon Ortez MD PATHOLOGY ORDERABLES Final Re sult [facility] [address] [place] [address] documented in this encounter Visit Diagnoses Not on filedocumented in this encounter Care Teams Platemaker Relationship Specialty Start Date End Date None, Provider PCP - General 03/25/17 09/08/17 documented as of this encounter
--- OUTSIDE RECORDS SUMMARY | 2024-11-22 17:28 | XMS_ITS | Encounter Summary ---
Author Organization [facility] Address [address] [place] [address] Care Team Providers Care Funding Coordinator Name Role Phone None, Provider Primary Care Provider Unavailabl e Reason for Visit * Reason Onset Date Comments Hematuria 08/24/2017 ED Visit this we ekend Encounter Details Date Type Department Care Team (Late st Contact Info) Description 08/24/2017 Telephone [facility] Urology - [facility] [address] [place], [place] [phone] Jordan Dickens MD [address] [facility], [address] [place] [address] Hematuria (ED Visit this weekend) Social History Tobacco Use Types Packs/Day Years [...] of Assessment Author No 02/21/2017 22:30 EDT lForentin Edmond RN * Do you have serious difficulty walking or climbing stairs? (5 years old or older) Answer Date of Assessment Author No 02/21/2017 22:30 EDT Florentin Edmond RN * Do you have difficulty dressing or bathing? (5 years old or older) Answer Date of Assessment Author No 02/21/2017 22:30 EDT Florentin Emdond RN * Because of a physical, mental, [...] Florentin Edmond RN documented in this encounter Miscellaneous Notes * Telephone Encounter - Justina Bustillo RN - 08/26/[address] Dickens who authorized pt to be moved to Dr Ortez's care if he had an appointment sooner, which he did, on Tuesday at 15:15. Pt aware. * Telephone Encounter - Lesly Kern - 08/24/2017 1425 EDT Reason for Call: Hematuria (ED Visit this weekend) Summary/Symptoms: Patient states that she was at ED this weekend and they told her to call to see if she can get in any sooner than oct appt. Please call Lesly Kern 08/24/2017 14:25 documented in this encounter Plan of Treatment Upcoming Encounters Date Type Department Care Team (Late st Contact Info) Description 01/04/2025 13:00 EST Office Visit [facility] Ophthalmology - [address] [phone] Gagandeep Rome MD [address] [place] [address], [facility] [address] [place] [phone] 02/11/2025 13:30 EDT Telemedicine [facility] Hematology & Oncology - [address] [phone] Dana Padilal MD [address] [place] [address], [address] [place] [address] documented as of this encounter Visit Diagnoses Not on filedocumented in this encounter Care Teams Funding Coordinator Relationship Specialty Start Date End Date None, Provider PCP - General 03/25/17 09/08/17 documented as of this encounter
--- OUTSIDE RECORDS SUMMARY | 2024-11-22 17:28 | XMS_ITS | Encounter Summary ---
Author Organization [facility] Address [address] [place] [address] Care Team Providers Care Training Designer Name Role Phone None, Provider Primary Care Provider Unavailabl e Encounter Details Date Type Department Care Team (Late st Contact Info) Description 07/14/2017 Orders Only [facility] Hematology & Oncology - [facility] [address] [place] [address] Starr Paige MD [address] [place], [place] [phone] Pancytopenia (CMS-HCC) (HCC-CMS) (Primary Dx) Social History Tobacco [...] Florentin Edmond RN documented in this encounter Plan of Treatment Upcoming Encounters Date Type Department Care Team (Late st Contact Info) Description 01/04/2025 13:00 EST Office Visit [facility] Ophthalmology - [address] [phone] Gagandeep Rome MD [address] [place] [address], [facility] [address] [place] [phone] 02/11/2025 13:30 EDT Telemedicine [facility] [place] Hematology & Oncology - [address] [phone] Dana Padilla MD [address] [place] [address], [facility] [address] [place] [address] documented as of this encounter Results * COMPREHENSIVE METABOLIC PANEL (ONCOLOGY USE ONLY-INC MG: DRAW GREEN TOP) (07/15/2017 12:04 EDT) [facility] Potassium 3.9 3.5 - 5.0 mEq/L 07/15/2017 12:29 [facility] Sodium 143 136 - 145 mEq/L 07/15/2017 12:29 [facility] Chloride 104 96 - 110 mEq/L 07/15/2017 12:29 [facility] CO2 29 22 - 32 mEq/L 07/15/2017 12:29 [facility] Total Alkaline Phosphatase 87 38 - 126 U/L 07/15/2017 12:29 [facility] Bilirubin, Total 0.8 <1.4 mg/dl 07/15/20 17 12:29 [facility] AST 19 15 - 46 U/L 07/15/2017 12:29 [facility] ALT 20 <53 U/L 07/15/2017 12:29 [facility] Albumin 4.2 3.4 - 4.9 g/dl 07/15/2017 12:29 [facility] Total Protein 7.3 6.3 - 8.2 g/dl 07/15/2017 12:29 [facility] Creatinine 0.75 0.52 - 1.04 mg/dl 07/15/2017 12:29 [facility] GFR, Calculated 89 >60 ml/min/1.7 3m2 07/15/2017 12:29 [facility] Comment: eGFR calculated using CKD-EPI equation for non Americans. Multiply eGFR by 1.16 for Americans. BUN 13 10 - 26 mg/dl 07/15/2017 12:29 [facility] Calcium 9.1 8.5 - 10.5 mg/dl 07/15/2017 12:29 [facility] Calculated Calcium 8.9 8.5 - 10.5 mg/dl 07/15/2017 12:29 [facility] Glucose, Serum 80 70 - 100 mg/dl 07/15/2017 12:29 [facility] Magnesium 2.0 1.7 - 2.8 mg/dl 07/15/2017 12:29 [facility] Blood specimen (specimen) BLOOD SPECIMEN / Unknown 07/15/2017 12:04 EDT 07/15/2017 12:07 EDT us Starr Paige MD CHEMISTRY & BLOOD GAS ORDER YANN Final Result [facility] [address] [place] [address] * (ABNORMAL) HEMAGRAM AND DIFFERENTIAL (07/15/2017 12:04 EDT) WBC 1.99(L) 4.0 - 12.4 K/cmm 07/15/2017 12:15 [facility] RBC 4.31 3.86 - 5.04 M/cmm 07/15/2017 12:15 [facility] Hemoglobin 12.6 11.6 - 15.2 gm/dl 07/15/2017 12:15 [facility] HCT 36.8 34.9 - 44.4 % 07/15/2017 12:15 [facility] MCV 85 81 - 98 fl 07/15/2017 12:15 [facility] MCH 29.2 26.7 - 33.3 pg 07/15/2017 12:15 [facility] MCHC 34.2 32.1 - 35.9 gm/dl 07/15/2017 12:15 [facility] RDW-CV 14.7(H) <14.7 % 07/15/2017 12:15 [facility] RDW-SD 46.2 <50.4 fl 07/15/2017 12:15 [facility] PLT 54(L) 141 - 377 K/cmm 07/15/2017 12:15 [facility] MPV 10.4 9.5 - 12.7 fl 07/15/2017 12:15 [facility] Neutrophils 69.0 % 07/15/2017 12:43 [facility] Lymphocytes 22.0 % 07/15/2017 12:43 [facility] Monocytes 7.0 % 07/15/2017 12:43 [facility] Eosinophils 1.0 % 07/15/2017 12:43 EDT [facility] Basophils 1.0 % 07/15/2017 12:43 EDT [facility] ABS Neutrophils 1.37(L) 2.20 - 8.85 K/cmm 07/15/2017 12:43 EDT [facility] ABS Lymphs 0.44(L) 1.09 - 3.30 K/cmm 07/15/2017 12:43 T [facility] ABS Monocytes 0.14 0.1 - 0.8 K/cmm 07/15/2017 12:43 EDT [facility] ABS Eosinophils 0.02(L) 0.03 - 0.61 K/cmm 07/15/2017 12:43 T [facility] ABS Basophils 0.02 0.01 - 0.11 K/cmm 07/15/2017 12:43 EDT [facility] Type of Diff: Manual 07/15/2017 12:43 EDT [facility] Blood specimen (specimen) BLOOD SPECIMEN / Unknown 07/15/2017 12:04 EDT 07/15/2017 12:07 EDT us Starr Paige MD PACKAGES & DNA PROBE ORDERA BLES Final Result [facility] [address] [place] [address] documented in this encounter Visit Diagnoses Diagnosis Pancytopenia (HCC-CMS)- Primary Other pancytopenia documented in this encounter Care Teams Training Designer Relationship Specialty Start Date End Date None, Provider PCP - General 03/25/17 09/08/17 documented as of this encounter
--- OUTSIDE RECORDS SUMMARY | 2024-11-22 17:28 | XMS_ITS | Encounter Summary ---
Author Organization [facility] Address [address] [place] [address] Care Team Providers Care Wheel Filler Name Role Phone None, Provider Primary Care Provider Unavailabl e Encounter Details Date Type Department Care Team (Late st Contact Info) Description 07/15/2017 Phlebotomy Only [facility] [place] [address] [place] [address] Internet Marketing Specialist, Outpatient Pancytopenia (CMS-HCC) (HCC-CMS) (Primary Dx) Social History [...] [facility] Ophthalmology - [address] [phone] Gagandeep Rome MD [address] [place] [address], [facility] [address] [place] [phone] 02/11/2025 13:30 EDT Telemedicine [facility] Hematology & Oncology - [address] [phone] Dana Padilla MD [address] [place] [address], Level [address] [place] [phone] documented as of this encounter Procedures Procedure Name Priority Date/Time Associated Diagnosis Comments COMPREHENSIVE METABOLIC PANEL (ONCOLOGY USE ONLY-INC MG) STAT 07/15/2017 12:04 EDT Pancytopenia ([facility]-HCC) ([facility]) COMPLETE BLOOD COUNT AND DIFFERENTIAL STAT 07/15/2017 12:04 EDT Pancytopenia (CMS-HCC) ([facility]) documented in this encounter Results * COMPREHENSIVE METABOLIC PANEL (ONCOLOGY USE ONLY-INC MG: DRAW GREEN TOP) (07/15/2017 12:04 EDT) Potassium 3.9 3.5 - 5.0 mEq/L 07/15/2017 12:29 [facility] Sodium 143 136 - 145 mEq/L 07/15/2017 12:29 [facility] Chloride 104 96 - 110 mEq/L 07/15/2017 12:29 [facility] CO2 29 22 - 32 mEq/L 07/15/2017 12:29 [facility] Total Alkaline Phosphatase 87 38 - 126 U/L 07/15/2017 12:29 [facility] Bilirubin, Total 0.8 <1.4 mg/dl 07/15/20 17 12:29 [facility] AST 19 15 - 46 U/L 07/15/2017 12:29 [facility] ALT 20 <53 U/L 07/15/2017 12:29 [facility] Albumin 4.2 3.4 - 4.9 g/dl 07/15/2017 12:29 [facility] Total Protein 7.3 6.3 - 8.2 g/dl 07/15/2017 12:29 [facility] Creatinine 0.75 0.52 - 1.04 mg/dl 07/15/2017 12:29 [facility] GFR, Calculated 89 >60 ml/min/1.7 3m2 07/15/2017 12:29 [facility] Comment: eGFR calculated using CKD-EPI equation for non Americans. Multiply eGFR by 1.16 for Americans. BUN 13 10 - 26 mg/dl 07/15/2017 12:29 [facility] Calcium 9.1 8.5 - 10.5 mg/dl 07/15/2017 12:29 [facility] Calculated Calcium 8.9 8.5 - 10.5 mg/dl 07/15/2017 12:29 [facility] Glucose, Serum 80 70 - 100 mg/dl 07/15/2017 12:29 [facility] Magnesium 2.0 1.7 - 2.8 mg/dl 07/15/2017 12:29 [facility] Blood specimen (specimen) BLOOD SPECIMEN / Unknown 07/15/2017 12:04 EDT 07/15/2017 12:07 EDT us Starr Paige MD CHEMISTRY & BLOOD GAS ORDER YANN Final Result [facility] [address] [place] [address] * (ABNORMAL) HEMAGRAM AND DIFFERENTIAL (07/15/2017 12:04 EDT) WBC 1.99(L) 4.0 - 12.4 K/cmm 07/15/2017 12:15 [facility] RBC 4.31 3.86 - 5.04 M/cmm 07/15/2017 12:15 [facility] Hemoglobin 12.6 11.6 - 15.2 gm/dl 07/15/2017 12:15 [facility] HCT 36.8 34.9 - 44.4 % 07/15/2017 12:15 [facility] MCV 85 81 - 98 fl 07/15/2017 12:15 [facility] MCH 29.2 26.7 - 33.3 pg 07/15/2017 12:15 [facility] MCHC 34.2 32.1 - 35.9 gm/dl 07/15/2017 12:15 [facility] RDW-CV 14.7(H) <14.7 % 07/15/2017 12:15 [facility] RDW-SD 46.2 <50.4 fl 07/15/2017 12:15 [facility] PLT 54(L) 141 - 377 K/cmm 07/15/2017 12:15 [facility] MPV 10.4 9.5 - 12.7 fl 07/15/2017 12:15 [facility] Neutrophils 69.0 % 07/15/2017 12:43 [facility] Lymphocytes 22.0 % 07/15/2017 12:43 [facility] Monocytes 7.0 % 07/15/2017 12:43 [facility] Eosinophils 1.0 % 07/15/2017 12:43 [facility] Basophils 1.0 % 07/15/2017 12:43 [facility] ABS Neutrophils 1.37(L) 2.20 - 8.85 K/cmm 07/15/2017 12:43 [facility] ABS Lymphs 0.44(L) 1.09 - 3.30 K/cmm 07/15/2017 12:43 [facility] ABS Monocytes 0.14 0.1 - 0.8 K/cmm 07/15/2017 12:43 [facility] ABS Eosinophils 0.02(L) 0.03 - 0.61 K/cmm 07/15/2017 12:43 [facility] ABS Basophils 0.02 0.01 - 0.11 K/cmm 07/15/2017 12:43 [facility] Type of Diff: Manual 07/15/2017 12:43 [facility] Blood specimen (specimen) BLOOD SPECIMEN / Unknown 07/15/2017 12:04 EDT 07/15/2017 12:07 EDT us Starr Paige MD PACKAGES & DNA PROBE ORDERA BLES Final Result [facility] [address] [place] [address] documented in this encounter Visit Diagnoses Diagnosis Pancytopenia (HCC-CMS)- Primary Other pancytopenia documented in this encounter Care Teams Wheel Filler Relationship Specialty Start Date End Date None, Provider PCP - General 03/25/17 09/08/17 documented as of this encounter
--- OUTSIDE RECORDS SUMMARY | 2024-11-22 17:28 | XMS_ITS | Encounter Summary ---
Author Organization [facility] Address [address] [place] [address] Care Team Providers Care Kiss Setter Hand Name Role Phone None, Provider Primary Care Provider Unavailabl e Encounter Details Date Type Department Care Team (Late st Contact Info) Description 08/11/2017 Results Only [facility] [phone] Jayden Tijerina MD [address] [place] [id number] Social History Tobacco Use Types Packs/Day Years [...] [facility] - [address] [phone] Gagandeep Rome MD [address] [place] [address], [facility] [address] [place] [phone] 02/11/2025 13:30 EDT Telemedicine [facility] Hematology & Oncology [address] [phone] Dana Padilla MD [address] [place] [address], [address] [place] [address] documented as of this encounter Procedures Procedure Name Priority Date/Time Associated Diagnosis Comments BENZODIAZEPINE PANEL CONFIRMATION Routine 08/11/2017 18:01 EDT documented in this encounter Results * BENZODIAZEPINES CONF (08/11/2017 18:01 EDT) Nordiazepam GC/MS Conf Negative Cutoff: 100 ng/mL 08/18/2017 7:23 EDT [facility] Oxazepam GC/MS Conf Negative Cutoff: 100 ng/mL 08/18/2017 7:23 [facility] Lorazepam by GC/MS Negative Cutoff: 100 ng/mL 08/18/2017 7:23 [facility] Temazepam by GC/MS Negative Cutoff: 100 ng/mL 08/18/2017 7:23 [facility] [place] Ethyl Flurazepam by GC/MS Negative Cutoff: 100 ng/mL 08/18/2017 7:23 [facility] 7 [place] Clonazepam by GC/MS Negative Cutoff: 100 ng/mL 08/18/2017 7:23 [facility] [place] Alprazolam by GC/MS Negative Cutoff: 100 ng/mL 08/18/2017 7:23 [facility] 7 [place] Flunitrazepam by GC/MS Negative Cutoff: 50 ng/mL 08/18/2017 7:23 [facility] [place] Triazolam by GC/MS Negative Cutoff: 100 ng/mL 08/18/2017 7:23 [facility] Interpretation Negative. 08/18/2017 7:23 [facility] Comment: (Note) . ADDITIONAL INFORMATION This report is intended for use in clinical monitoring and management of patients. ??It is not intended for use in employment-related testing. This test was developed and its performance characteristics determined by [facility] in a manner consistent with CLIA requirements. This test has not been cleared or approved by the U.S. Food and Drug Administration. Performed by: [facility] Labs: [facility] [address], [place] [address], Lab Dir: Jesus Stanford II, M.D., Ph.D. URINE / Unknown 08/11/2017 1 8:01 EDT 08/11/2017 20:22 EDT us Jayden Tijerina MD URINALYSIS ORDERABLES Final Res ult [facility] [address] [place] [address] documented in this encounter Visit Diagnoses Not on filedocumented in this encounter Care Teams Kiss Setter Hand Relationship Specialty Start Date End Date None, Provider PCP - General 03/25/17 09/08/17 documented as of this encounter
--- OUTSIDE RECORDS SUMMARY | 2024-11-22 17:28 | XMS_ITS | Encounter Summary ---
Author Organization [facility] Address [address] [place] [address] Care Team Providers Care Interactive Media Marketing Strategist Name Role Phone None, Provider Primary Care Provider Unavailmulticare health e Naty Evans MD Unavailable Jaimie Evans MD Primary Care Provider [phone] Encounter Details Date Type Department Care Team (Late st Contact Info) Description 08/29/2017 Orders Only [facility] Urology - [facility] [address] [place], [place] [phone] Lon Ortez MD [address] [facility], Level [address] [place] [address] Gross hematuria (Primary Dx) Social History Tobacco [...] Visit [facility] Ophthalmology - [address] [phone] Gagandeep Rome MD [address] [place] [address] [address] [place] [phone] 02/11/2025 13:30 EDT Telemedicine [facility] Hematology & Oncology [address] [phone] Dana Padilla MD [address] [place] [address], [facility] 2 [place] [address] documented as of this encounter Procedures Procedure Name Priority Date/Time Associated Diagnosis Comments URINE CHEMICAL (DIP) & SEDIMENT (MICRO) WITHOUT REFLEX TO CULTURE Routine 08/29/2017 16:06 EDT Gross hematuria BACTERIAL CULTURE, URINE Routine 08/29/2017 16:06 EDT Gross hematuria documented in this encounter Results * BACTERIAL CULTURE, URINE (08/29/2017 16:06 EDT) Result Less than 10,000 CFU/ml Usual urogenital tiffanie. 08/30/2017 9:17 EDT [facility] Urine specimen (specimen) URINE / Unknown 08/29/2017 16:06 EDT 08/29/2017 16:11 EDT us Lon Ortez MD MICROBIOLOGY - GENERAL ORDERA BLES Final Result [facility] [address] [place] [address] * (ABNORMAL) URINALYSIS AND MICROSCOPIC (08/29/2017 16:06 EDT) Color, UA Yellow 08/29/2017 18:41 [facility] Clarity, UA Hazy 08/29/2017 18:41 [facility] Glucose, UA Neg Neg 08/29/2017 18:41 [facility] Bilirubin, UA 1+(A) Neg 08/29/2017 18:41 [facility] Ketones, UA Neg Neg 08/29/2017 18:41 [facility] Specific [place], Urine 1.020 1.001 - 1.035 08/29/2017 18:41 [facility] Blood, UA 3+(A) Neg 08/29/2017 18:41 [facility] pH, UA 6.0 4.6 - 8.0 08/29/2017 18:41 [facility] Protein, UA Trace(A) Neg 08/29/2017 18:41 [facility] Urobilinogen, UA 1.0 0.2 - 1.0 E.U./dl 08/29/2017 18:41 [facility] Nitrite, UA Neg Neg 08/29/2017 18:41 [facility] Leuk Esterase Trace(A) Neg 08/29/2017 18:41 [facility] WBC, UA 1 to 5 0 - 5 /HPF 08/29/2017 18:41 [facility] RBC, UA Innum 0 - 5 /HPF 08/29/2017 18:41 [facility] Squam Epithel, UA Frequent(A) None seen /HPF 08/29/2017 18:41 [facility] Renal Epithel, UA None seen None seen /HPF 08/29/2017 18:41 [facility] Bacteria, UA None seen None seen /HPF 08/29/2017 18:41 [facility] Crystals, UA None seen /HPF 08/29/2017 18:41 [facility] Hyaline Casts, UA None seen /LPF 08/29/2017 18:41 [facility] UA Comment Microscopic results 08/29/2017 16:06 [facility] Comment: are unreliable on urines unrefrig >2hrs or refrig >8hrs. Mucus, UA Present 08/29/2017 18:41 [facility] Urine specimen (specimen) URINE / Unknown 08/29/2017 16:06 EDT 08/29/2017 16:10 EDT us Lon Ortez MD URINALYSIS ORDERABLES Final R esult [facility] [address] [place] [address] documented in this encounter Visit Diagnoses Diagnosis Gross hematuria- Primary documented in this encounter Orders Lab Orders Without Results Count Last Ordered D ate First Ordered Date CYTOLOGY (NON-GYNECOLOGIC IN CLUDING FLUIDS AND FINE NEEDLE ASPIRATION)- ORDER ONLY 1 08/29/2017 documented in this encounter Care Teams Interactive Media Marketing Strategist Relationship Specialty Start Date End Date None, Provider PCP - General 03/25/17 09/08/17 Naty Evans MD [address] [place] [address] [place] [phone] PCP - Alternate 09/09/17 09/19/17 Jaimie Evans MD [address] [place] [address] PCP - General 09/20/17 09/29/17 documented as of this encounter
--- OUTSIDE RECORDS SUMMARY | 2024-11-22 17:28 | XMS_ITS | Encounter Summary ---
Author Organization [facility] Address [address] [place] [address] Care Team Providers Care Rn Wound Care Name Role Phone None, Provider Primary Care Provider Unavailabl e Reason for Visit * Reason Comments Gross Hematuria * Consult (Routine/Next Available) - Closed Specialty Diagnoses / Procedures Referred By Serene huitron Referred To Contact Urology Diagnoses Hematuria Starr Paige MD Phone: tel: fax: Referral ID Status Reason Start Date Expiration Date V isits Requested Visits Authorized [id number] Closed Specialty Services Required 07/15/2017 1 1 Encounter Details Date Type Department Care Team (Late st Contact Info) Description 08/29/2017 15:15 EDT Office Visit [facility] Urology - [facility] [address] [place] [address] Lon Ortez MD [address] [facility], [address] [place] [address] Gross hematuria (Primary Dx) Discharge Disposition: Auto Discharge Social [...] R31.0 Gross hematuria-R31.0[ICD-10-CM] documented in this encounter Discharge Disposition Disposition Code Departure Means Destination Auto Discharge documented in this encounter Progress Notes * Lon Ortez MD - 08/29/2017 1515 EDT Chief Complaint: Chief Complaint Patient presents with ??? Gross Hematuria Reason for Consult: Urology was asked to see Tara in consultation at the request of Provider Clau for evaluation of gross hematuria. HPI: Tara is a 57 y.o. female with gross hematuria. Patient seen in the past with a kidney stonetreated by Dr. Dickens in with ureteroscopy and stenting postop. She returns to clinic today with findings of intermittent gross hematuria. This is not associated with pain. She does complain of left flank and abdominal pain which he thinks is likely related to her known intra-abdominal thrombus. Her care is somewhat fracture between [facility] and [facility] as her urologist and GI specialists are here at [facility]. This has been going on for quite some time and she is a prior smoker. She has a 64-90-jwrx-year smoking history but quit 2 months ago. She is somewhat distraught in clinic today. Patient Active Problem List Diagnosis ??? Kidney stone ??? Nausea with vomiting ??? Chest pain ??? Pancytopenia (HCC) ??? Acute left flank pain ??? Mild persistent asthma without complication ??? NAFLD (nonalcoholic fatty liver disease) ??? Splenomegaly ??? Pyelonephritis ??? C. difficile colitis ??? Neck mass ??? Vasovagal syncope ??? Neutropenia (HCC) ??? Epigastric pain ??? Syncope ??? Drug-seeking behavior ??? Hypoglycemia ??? Hypersplenism syndrome ??? Splenic vein thrombosis ??? Hematuria, gross PMH PSH Past Medical History: Diagnosis Date ??? Asthma ??? Bleeding disorder (HCC) ??? Cirrhosis of liver (HCC) ??? Drug-seeking behavior Per Dr Amelia Tijerina and notes from [facility] patient misconstrued information to several providers about multiple concurrent opiate prescriptions ??? Heartburn ??? Hypersplenism syndrome ??? Rheumatoid arthritis Past Surgical History: Procedure Laterality Date ??? APPENDECTOMY ??? CHOLECYSTECTOMY ??? HERNIA REPAIR ??? HYSTERECTOMY ??? KNEE SURGERY ??? TONSILLECTOMY Social History Family History Social History Substance Use Topics ??? Smoking status: Current Every Day Smoker Packs/day: 0.50 Years: 20.00 ??? Smokeless tobacco: Never Used ??? Alcohol use No Family History Problem Relation Age of Onset ??? Cancer Maternal Grandmother Medications Current Outpatient Prescriptions: ??? albuterol 90 mcg/actuation inhaler, Inhale 2 Puffs as directed every 4 hours., Disp: , Rfl: ??? ALPRAZolam (XANAX) 1 mg tablet, Take 1 mg by mouth 3 times daily., Disp: , Rfl: ??? ERGOCALCIFEROL, VITAMIN D2, (VITAMIN D ORAL), Take by mouth., Disp: , Rfl: ??? ferrous gluconate (FERGON) 324 mg (38 mg iron) tablet, Take 324 mg by mouth 3 times daily with meals. , Disp: , Rfl: ??? fluticasone (FLOVENT) 110 mcg/actuation inhaler, Inhale 110 mcg as directed 2 times daily., Disp: , Rfl: ??? LEVOTHYROXINE SODIUM (LEVOTHYROXINE ORAL), Take 0.25 mg by mouth daily Unknown dose , Disp: , Rfl: ??? ondansetron (ZOFRAN-ODT) 4 mg disintegrating tablet, Take 1 Tab by mouth every 8 hours as needed for Nausea., Disp: 30 Tab, Rfl: 0 ??? pantoprazole (PROTONIX) 40 mg tablet, Take 40 mg by mouth daily., Disp: , Rfl: ??? rifAXImin (XIFAXAN) 550 mg tablet, Take 550 mg by mouth 2 times daily, Disp: , Rfl: Allergies Allergies Allergen Reactions ??? Morphine Anaphylaxis ??? Tylenol [Acetaminophen] Other (See Comments) Contraindication with medical hx ??? Toradol [Ketorolac] Shortness Of Breath ??? Aspirin Other (See Comments) Contraindication with medical hx ??? Reglan [Metoclopramide Hcl] Rash ??? Sulfa (Sulfonamide Antibiotics) Rash Review of Systems: Negative for fevers, chills, chest pain , shortness of breath, nausea, joint pain, muscle pain, dysuria, numbness, change in vision, endocrine problems or skin rashes. Objective/Physical Exam: Vital Signs: There were no vitals taken for this visit. Exam: Constitutional: Alert, in no distress. Lymph: Neck supple without lymphadenopathy Respiratory: Respirations unlabored. Pulm: normal effort. Abd: Abdomen soft, non tender. Renal: Left CVA tenderness. Musculoskeletal: Extremities warm without edema. Skin: Skin warm and dry. Lab Results Component Value Date/Time HGB 10.8 (L) 08/26/2017 05:48 CREATININE 0.76 08/25/2017 06:00 CREATININE 0.76 08/24/2017 18:30 CREATININE 0.78 08/20/2017 23:37 Data Review: I have independently visualized the and image(s) Labs: CBC: Lab Results Component Value Date WBC 0.89 (LL) 08/26/2017 RBC 3.77 (L) 08/26/2017 HGB 10.8 (L) 08/26/2017 HCT 32.1 (L) 08/26/2017 MCV 85 08/26/2017 MCH 28.6 08/26/2017 MCHC 33.6 08/26/2017 PLT 40 (L) 08/26/2017 NEUTROABS 0.62 (L) 08/26/2017 SEDRATE 19 06/17/2015 BMP: Lab Results Component Value Date NA 141 08/25/2017 K 3.6 08/25/2017 CL 105 08/25/2017 CO2 28 08/25/2017 BUN 14 08/25/2017 CREATININE 0.76 08/25/2017 GLUCOSEFINGE 83 06/20/2017 CALCIUM 9.0 08/20/2017 MG 2.0 07/15/2017 LABALBU 3.9 08/24/2017 U/A: Lab Results Component Value Date CLARITYU Cloudy 06/20/2017 LABSPEC 1.020 06/20/2017 PHUR 6.0 06/20/2017 GLUCOSEU Neg 06/20/2017 BILIRUBINUR Neg 06/20/2017 KETONES Neg 06/20/2017 BLOODU 3+ (A) 06/20/2017 Other Studies: N/A Assessment/Plan 1. Gross hematuria Patient presenting with gross hematuria and left flank pain. She did a CT scan done on August 23 that did not show any kidney stones. Unfortunately this was with IV contrast without delay some unableto assess the urothelium. She does not a long smoking history and is at risk for a urothelial malignancy would like to complete her gross hematuria workup with a urine cytology, CT urogram and office cystoscopy. We did also send her urine for micro-analysis and culture today from the office. Other Orders Placed This Visit Procedures ??? Bacterial Culture, Urine ??? CT UROGRAM W/WO CONTRAST ??? Urinalysis and Microscopic Lon Ortez MD documented in this encounter Plan of Treatment Upcoming Encounters Date Type Department Care Team (Late st Contact Info) Description 01/04/2025 13:00 EST Office Visit [facility] Ophthalmology - [place] [phone] Gagandeep Rome MD [address] [place] [address], [address] [place] [phone] 02/11/2025 13:30 EDT Telemedicine [facility] Cancer Center Hematology & Oncology - [facility] [address], [place] [phone] Dana Padilla MD [address] [facility], [facility] 2 [place] [address] Scheduled Orders Name Type Priority Associated Diagnoses Orde r Schedule CYTOLOGY (NON-GYNECOLOGIC INCLUDING FLUIDS AND FINE NEEDLE ASPIRATION)- ORDER ONLY Pathology Routine Gross hematuria Expected: 08/30/2017 (Approximate), Expires: 08/29/2018 documented as of this encounter Results * BACTERIAL CULTURE, URINE (08/29/2017 16:06 EDT) Result Less than 10,000 CFU/ml Usual urogenital tiffanie. 08/30/2017 9:17 EDT [facility] Urine specimen (specimen) URINE / Unknown 08/29/2017 16:06 EDT 08/29/2017 16:11 EDT us Lon Ortez MD MICROBIOLOGY - GENERAL ORDERA BLES Final Result [facility] [address] [place] [address] * (ABNORMAL) URINALYSIS AND MICROSCOPIC (08/29/2017 16:06 EDT) Color, UA Yellow 08/29/2017 18:41 EDT [facility] Clarity, UA Hazy 08/29/2017 18:41 EDT [facility] Glucose, UA Neg Neg 08/29/2017 18:41 EDT [facility] Bilirubin, UA 1+(A) Neg 08/29/2017 18:41 EDT [facility] Ketones, UA Neg Neg 08/29/2017 18:41 EDT [facility] Specific Dana, Urine 1.020 1.001 - 1.035 08/29/2017 18:41 [facility] Blood, UA 3+(A) Neg 08/29/2017 18:41 [facility] pH, UA 6.0 4.6 - 8.0 08/29/2017 18:41 [facility] Protein, UA Trace(A) Neg 08/29/2017 18:41 [facility] Urobilinogen, UA 1.0 0.2 - 1.0 E.U./dl 08/29/2017 18:41 [facility] Nitrite, UA Neg Neg 08/29/2017 18:41 [facility] Leuk Esterase Trace(A) Neg 08/29/2017 18:41 [facility] WBC, UA 1 to 5 0 - 5 /HPF 08/29/2017 18:41 [facility] RBC, UA Innum 0 - 5 /HPF 08/29/2017 18:41 [facility] Squam Epithel, UA Frequent(A) None seen /HPF 08/29/2017 18:41 [facility] Renal Epithel, UA None seen None seen /HPF 08/29/2017 18:41 [facility] Bacteria, UA None seen None seen /HPF 08/29/2017 18:41 [facility] Crystals, UA None seen /HPF 08/29/2017 18:41 [facility] Hyaline Casts, UA None seen /LPF 08/29/2017 18:41 [facility] UA Comment Microscopic results 08/29/2017 16:06 [facility] Comment: are unreliable on urines unrefrig >2hrs or refrig >8hrs. Mucus, UA Present 08/29/2017 18:41 [facility] Urine specimen (specimen) URINE / Unknown 08/29/2017 16:06 EDT 08/29/2017 16:10 EDT us Lon Ortez MD URINALYSIS ORDERABLES Final R esult [facility] [address] [place] [address] documented in this encounter Visit Diagnoses Diagnosis Gross hematuria- Primary documented in this encounter Care Teams Rn Wound Care Relationship Specialty Start Date End Date None, Provider PCP - General 03/25/17 09/08/17 documented as of this encounter
--- OUTSIDE RECORDS SUMMARY | 2024-11-22 17:28 | XMS_ITS | Encounter Summary ---
Author Organization [facility] Address [address] [place] [address] Care Team Providers Care Bradley Linebacker Crewmember Name Role Phone None, Provider Primary Care Provider Unavailabl e Reason for Visit * Reason Onset Date Comments Establish Care 08/11/2017 Encounter Details Date Type Department Care Team (Late st Contact Info) Description 08/11/2017 Telephone [facility] Adult Primary Care - [address] [phone] None, Provider Establish Care Social History Tobacco Use Types Packs/Day [...] Assessment Author No 02/21/2017 22:30 EDT Florentin Edmond, KENN * Do you have difficulty dressing [...] encounter Miscellaneous Notes * Telephone Encounter - Laxmi Hill - 08/11/2017 1621 EDT Patient dropped off new patient paperwork to be reviewed by Dr Lowery. Forms placed in the going west bin. documented in this encounter Plan of Treatment Upcoming Encounters Date Type Department Care Team (Late st Contact Info) Description 01/04/2025 13:00 EST Office Visit [facility] Ophthalmology - [address] [phone] Gagandeep Rome MD [address] [place] [address], [facility] [address] [place] [address] 02/11/2025 13:30 EDT Telemedicine [facility] Hematology & Oncology - [address] [address] Dana Padilla MD [address] [place] [address], [address] [place] [phone] documented as of this encounter Visit Diagnoses Not on filedocumented in this encounter Care Teams Bradley Linebacker Crewmember Relationship Specialty Start Date End Date None, Provider PCP - General 03/25/17 09/08/17 documented as of this encounter
--- OUTSIDE RECORDS SUMMARY | 2024-11-22 17:28 | XMS_ITS | Encounter Summary ---
Author Organization [facility] Address [address] [place] [address] Care Team Providers Care Bridge Crew Member Name Role Phone None, Provider Primary Care Provider Unavailabl e Reason for Visit * Reason Onset Date Comments Appointment Related 06/24/2017 needs sooner appointment Encounter Details Date Type Department Care Team (Late st Contact Info) Description 06/24/2017 Telephone [facility] Cancer Center Hematology & Oncology - [facility] [address] [place] [address] Starr Paige MD [address] [place], [place] [phone] Appointment Related (needs sooner appointment ) Social History Tobacco Use Types Packs/Day [...] Miscellaneous Notes * Telephone Encounter - Juliet Roca - 07/01/2017 1115 EDT See note berry Cuellar dated 06/30/17 * Telephone Encounter - Katherin Werner RN - 06/29/[address] Paige she reviewed information and states the appt scheduled on 07/15 is appropriate. * Telephone Encounter - Juana Cuellar - 06/29/2017 1048 EDT Called and spoke to patient. Informed her that Katherin Werner RN spoke to Dr. Paige and reviewedher chart. At this time we cannot see her sooner than her scheduled appointment. Patient understands this and has been added to a cancellation list. Spoke to patient about establishing with a Primary Care doctor. She will call [facility] today to establish with their office. Gave patient my direct line if she has any questions. * Telephone Encounter - Aris Youngblood - 06/24/2017 1203 EDT Patient blacked out and was sent to [facility] ED by ambulance 7.31. Patient platelets were low and have been dropping. Her last count was 44 from a couple nights. It has dropped from 54 since June 01. Patient feels she should be seen sooner than 8.25. Please advise. She is very nervous. The ED doctor told her to call and see if she could get in sooner . Please advise. documented in this encounter Plan of Treatment Upcoming Encounters Date Type Department Care Team (Late st Contact Info) Description 01/04/2025 13:00 EST Office Visit [facility] Ophthalmology - [address] [phone] Gagandeep Rome MD [address] [place] [address] [address] [place] [phone] 02/11/2025 13:30 EDT Telemedicine [facility] Hematology & Oncology - [address] [phone] Dana Padilla MD [address] [place] [address], [address] [place] [phone] documented as of this encounter Visit Diagnoses Not on filedocumented in this encounter Care Teams Bridge Crew Member Relationship Specialty Start Date End Date None, Provider PCP - General 03/25/17 09/08/17 documented as of this encounter
--- OUTSIDE RECORDS SUMMARY | 2024-11-22 17:28 | XMS_ITS | Encounter Summary ---
Author Organization [facility] Address [address] [place] [address] Care Team Providers Care Bottomer Operator Name Role Phone None, Provider Primary Care Provider Unavailabl e Encounter Details Date Type Department Care Team (Latest Contact Info) Description 08/11/2017 13:04 EDT - 08/11/2017 23:59 EDT Hospital Encounter [address] [address] Jayden Tijerina MD [address] [place] [address] Discharge Disposition: Home or Self Care Social [...] 02/21/2017 22:30 EDT Florentin Edmond, KENN * Are you blind or do you have serious difficulty seeing, even when wearing glasses? Answer Date of Assessment Author No 02/21/2017 22:30 EDT Florentin Edmond RN * Do you have serious difficulty walking or climbing stairs? (5 years old or older) Answer Date of Assessment Author No 02/21/2017 22:30 EDT Florenitn Edmond RN * Do you have difficulty [...] documented in this encounter Discharge Diagnoses Diagnosis F41.1 Generalized anxiety disorder-F41.1[ICD-10-CM] documented in this encounter Medications at Time of Discharge albuterol 90 mcg/actuation inhaler Inhale 2 Puffs as directed every 4 hours as needed. 09/18/2021 ALPRAZolam (XANAX) 1 mg tablet Take 1 mg by mouth 3 times daily. 09/30/2017 ferrous gluconate (FERGON) 324 mg (38 mg [...] Visit [facility] Ophthalmology - [address] [phone] Gagandeep Rome MD [address] [place] [address], [facility] 5 [place] [phone] 02/11/2025 13:30 EDT Telemedicine [facility] Hematology & Oncology - [address] [phone] Dana Padilla MD [address] [place] [address], [address] [place] [address] documented as of this encounter Visit Diagnoses Not on filedocumented in this encounter Care Teams Bottomer Operator Relationship Specialty Start Date End Date None, Provider PCP - General 03/25/17 09/08/17 documented as of this encounter
--- OUTSIDE RECORDS SUMMARY | 2024-11-22 17:28 | XMS_ITS | Encounter Summary ---
Author Organization [facility] Address [address] [place] [address] Care Team Providers Care Hair Dryer Name Role Phone None, Provider Primary Care Provider Unavailabl e Reason for Referral * Follow Up (3 - 10 Business Days) - Closed Specialty Diagnoses / Procedures Referred By Serene huitron Referred To Contact General Internal Medicine Diagnoses Splenic vein thrombosis Hematuria, gross Terra Olsen MD Phone: tel: fax: [facility] - [address] [address] Phone: tel: fax: Referral ID Status Reason Start Date Expiration Date V isits Requested Visits Authorized [id number] Closed Continuity of Care 08/26/2017 1 1 Question Answer Reason for Request: hospital followup Expected Discharge Date (Inpatient Only): 08/26/2017 Reason for Visit * Reason Comments Loss of Consciousness Arrives reporting increased weakness. Patient passed out while walking to waiting room. Patient states everything became black. Known low PLT count. 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 Encounter Details Date Type Department Care Team (Late st Contact Info) Description 08/24/2017 22:37 EDT - 08/26/2017 11:29 EDT Hospital Encounter [facility] Cardiac/Telemetry Unit [address] [place] [address] Radha Mejia MD 111 [facility], Level [address] [place] [phone] Edgardo Montiel MD 111 [facility] [address] [place] [phone] Nikos Bautista MD [facility], [address] [place] [address] Splenic vein thrombosis (Primary Dx); Hematuria, gross; Pancytopenia (CMS-HCC) (HCC[facility]) Discharge Disposition: Home or Self Care Social [...] Reading Time Taken Comments Blood Pressure 103/61 08/26/2017 0900 EDT Pulse 66 08/26/2017 0900 EDT Temperature 35.9 ??C (96.6 ??F) 08/26/2017 0900 EDT Respiratory Rate 16 08/26/2017 0900 EDT Oxygen Saturation 95% 08/26/2017 0900 EDT Inhaled Oxygen Concentration - - Weight 92.5 kg (203 lb 14.4 oz) 08/24/20172342 EDT Height 165.1 cm (5' 5) 08/24/2017 234 EDT Body Mass Index 33.93 08/24/2017 2343 EDT documented in this encounter Functional Status [...] documented in this encounter Discharge Diagnoses Diagnosis N02.9 Recurrent and persistent hematuria with unspecified morphologic changes-N02.9[ICD-10-CM] I82.891 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-I82.891[ICD-10-CM] D61.818 Other pancytopenia-D61.818[ICD-10-CM] K74.69 Other cirrhosis of liver-K74.69[ICD-10-CM] D47.2 Monoclonal gammopathy-D47.2[ICD-10-CM] K76.0 Fatty (change of) liver, not elsewhere classified-K76.0[ICD-10-CM] F17.210 Nicotine dependence, cigarettes, uncomplicated-F17.210[ICD-10-CM] J45.909 Unspecified asthma, uncomplicated-J45.909[ICD-10-CM] K21.9 Gastro-esophageal reflux disease without esophagitis-K21.9[ICD-10-CM] D73.1 Hypersplenism-D73.1[ICD-10-CM] Z87.442 Personal history of urinary calculi-Z87.442[ICD-10-CM] F41.9 Anxiety disorder, unspecified-F41.9[ICD-10-CM] M06.9 Rheumatoid arthritis, unspecified-M06.9[ICD-10-CM] R10.9 Unspecified abdominal pain-R10.9[ICD-10-CM] documented in this encounter Discharge Summaries * Nikos Nguyen MD - 08/25/2017 1255 EDT Medicine Discharge Summary Primary Care Provider: Provider None Attending Physician: Nikos Nguyen MD Admit Date: 08/24/2017 Discharge Date: 08/26/2017 Disposition: Home or self care Reason for Admission: abdominal pain Principal/Final Diagnosis: Splenic vein thrombosis Additional Problems Managed in the Hospital Active Hospital Problems Diagnosis Date Noted ??? *Splenic vein thrombosis 08/24/2017 ??? Hematuria, gross 08/24/2017 Resolved Hospital Problems Diagnosis Date Noted Date Resolved No resolved problems to display. Hospital Course: Tara Boothe is a 57 y.o. female with a PMHx of cirrhosis of the liver secondary to nonalcoholic fatty liver disease, GERD, hypersplenism, thrombocytopenia, leukopenia, asthma, prior history of nephrolithiasis, MGUS, chronic splenic vein thrombosis, chronic intermittent hematuria who presents with 24 hours of left flank pain and more hematuria. Patient is followed by GI and hematology at [facility] for her chronic splenic thrombosis; during her last visit, they decided not toanti-coagulate. She has also seen hematology here (see note from 07/[address] Paige); her thrombocytopenia, leukopenia, and anemia are thought to be secondary to her liver disease and hypersplenism; she underwent bone marrow biopsy for pancytopenia in 2012 that showed mature trilineage hematopoiesis with no underlying hematopoietic abnormalities. Patient's hematuria is chronic (dating back toat least 2014 per chart review) and is associated with nephrolithiasis and her thrombocytopenia. Patient says she had a negative cystoscopy. She is supposed to have a follow-up appointment with urology on 09/08. On admission, patient was complaining of left flank pain; CT renal colic on 08/20 showed no kidney stone. Patient had a CT abdomen on admission which showed extension of her chronic splenic thrombosis, without extension to the portal system. Patient was seen by hematology, who decided that because of the patient's low platelet count and hematuria, they would not recommend anticoagulation for the splenic vein thrombosis at this time. Patient's left flank pain was of unclear etiology; unlikely to be from the splenic vein thrombosis, possibly secondary to her enlarged spleen. There also was a comp onent of anxiety with the patient's pain. She was worried about her hematuria and her other variousproblems. Her pain improved and the patient was discharged, with plan for her to go to her upcomingurology appointment on 09/08 and follow- up at [facility] for the chronic splenic vein thrombosis. Patient was noted to be neutropenic before discharge (ANC 1000), and we reminded patient of risks, hand washing, avoiding people who are ill; also reminded her that if she develops a fever, she needs to present to the hospital. Clinical Issues Needing Follow-up: Chronic hematuria: upcoming urology appointment on 09/08 Chronic splenic vein thrombosis: follow-up at [facility] GI Neutropenia: CBC on 08/31 Discharge Medications: START taking these medications Sig ondansetron 4 mg disintegrating tablet Commonly known as: ZOFRAN-ODT Take 1 Tab by mouth every 8 hours as needed for Nausea. Quantity: 30 Tab CONTINUE taking these medications Sig albuterol 90 mcg/actuation inhaler Inhale 2 Puffs as directed every 4 hours. ferrous gluconate 324 mg (38 mg iron) tablet Commonly known as: FERGON Take 324 mg by mouth 3 times daily with meals. fluticasone 110 mcg/actuation inhaler Commonly known as: FLOVENT Inhale 110 mcg as directed 2 times daily. LEVOTHYROXINE ORAL Take 0.25 mg by mouth daily Unknown dose pantoprazole 40 mg tablet Commonly known as: PROTONIX Take 40 mg by mouth daily. VITAMIN D ORAL Take by mouth. XANAX 1 mg tablet Generic drug: ALPRAZolam Take 1 mg by mouth 3 times daily. XIFAXAN 550 mg tablet Generic drug: rifAXImin Take 550 mg by mouth 2 times daily Allergies Allergen Reactions ??? Morphine Anaphylaxis ??? Tylenol [Acetaminophen] Other (See Comments) Contraindication with medical hx ??? Toradol [Ketorolac] Shortness Of Breath ??? Aspirin Other (See Comments) Contraindication with medical hx ??? Reglan [Metoclopramide Hcl] Rash ??? Sulfa (Sulfonamide Antibiotics) Rash Immunization History Administered Date(s) Administered ? ? Pneumococcal Polysaccharide Vaccine (PPSV23) =>2YO SQ/IM 07/18/2015 Results Pending at Discharge Test results still pending from this admission None Upcoming Appointments Sep 08, 2017 14:30 EDT Follow Up Return with Jordan Dickens MD [facility] Urology - [facility] (--) [address] [facility] [address] Sep 09, 2017 9:45 EDT Consultation with CHENTE Monroy [facility] Pain Medicine - [facility] (--) [address] [facility] [id number] No PCP in our system, patient sees physicians at [facility] Discharge Summary Completed By: Terra Olsen MD I have personally seen and examined the patient. I reviewed the laboratory and radiographic results. The case was discussed with the medicine house staff and I agree with the findings above and plan of care documented. Please see my additional comments in blue. 40 minutes spent in discharge coordination Nikos Bautista MD [place] Division of Hospital Medicine documented in this encounter Medications at Time of Discharge albuterol 90 mcg/actuation inhaler Inhale 2 Puffs as directed every 4 hours as needed. 1 ALPRAZolam (XANAX) 1 mg tablet Take 1 mg by mouth 3 times daily. 7 ERGOCALCIFEROL, VITAMIN D2, (VITAMIN D ORAL) Take by mouth. 1 ferrous gluconate (FERGON) 324 mg (38 mg iron) tablet Take 324 mg by mouth daily with breakfast. 1 fluticasone (FLOVENT) 110 mcg/actuation inhaler Inhale 110 mcg as directed 2 times daily. 0 LEVOTHYROXINE SODIUM (LEVOTHYROXINE ORAL) Take 25 mcg by mouth daily. Unknown dose 0 ondansetron (ZOFRAN-ODT) 4 mg disintegrating tablet Take 1 Tab by mouth every 8 hours as needed for Nausea. 30 Tab 08/26/2017 9 pantoprazole (PROTONIX) 40 mg tablet Take [...] needed for Nausea. 30 Tab 08/26/2017 9 documented in this encounter Discharge Disposition Disposition Code Departure Means Destination Home or Self Care documented in this encounter Progress Notes * Leti Armenta - 08/25/2017 1556 EDT Initial Case Management/Social Work Assessment and Discharge Plan/Readmission Risk Assessment REASON FOR ADMISSION: <principal problem not specified> Patient understands reason for admission: Yes PATIENT CONTACT INFO VERIFIED: Yes PATIENT ADDRESS VERIFIED: Yes LIVING ARRANGEMENTS AND ACCESSIBILITY ISSUES: Living Arrangements: Other (Comment), Friends (rents room) Levels: 1 Stairs to enter: 1 Handicap access: Railings into home Bathroom located on bedroom level?: Yes What in home social supports are available to the patient? Friends / neighbors Is 13/06 care available? No ADVANCED DIRECTIVES, POA &/or COLST IN PLACE: Healthcare Directive: No, patient does not have advance directive for healthcare treatment Information Provided on Healthcare Directives: No Information on Healthcare Directives Requested: No DIRECTIVES FOR FINANCES: TRANSPORTATION: Transportation: Family, [place]icareTransport [place] Transportation: SSTA CULTURAL, QUAKER and/or LANGUAGE factors affecting health care/discharge planning: Spiritual/Cultural Requests: None Any factors affecting health care/discharge planning?: No Insurance in Place: Yes Medical Insurance: Yes Type of insurance: Medicare, Medicaid Medicare type: A, B Medicaid Type: LTC Medicaid Referred to patient financial services: No DISCHARGE RISK ASSESSMENT: Repeat hospitalizations/ED visits Total # selected above: Score of 1 [...] care for you?: No RAPT Tool Score: 3 Patient expects to be discharged to: Home SBIRT: Intervention in place/initiated?: No, not indicated FUNCTIONAL STATUS: Activities patient requires assistance: None Assistive Device: None COMMUNITY RESOURCES/SUPPORTS: Primary Care Provider: Provider None PCP Verified: Yes (Pt states none but has applied at the resident clinic) Specialists: Cardiology, Other (hematology, urology) Type of Home Health Services: None DME Provider: Pharmacy: [facility] [address] Home Health: Other: POST HOSPITAL TRANSITION PLAN: Return to usual LOF . 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 SHe states she needs a good plan for discharge. Will follow Leti Armenta 08/25/2017 15:56 * Nikos Nguyen MD - 08/25/2017 0859 EDT Medicine Progress Note Admit Date: 08/24/2017 22:19 Date of Service: 08/25/2017 Reason for Admit/CC: hematuria and left sided abdominal pain 24 Hour Events: admitted from ED Subjective: Tara says her pain began approximately 24 hours ago. It has not worsened since then. It is left sided, wrapping around ribs and down her flank. She has had more hematuria in the last 24 hours (hashad intermittent hematuria for months). She presented because she was worried about her hematuria--she has an upcoming appointment on 09/08 with urology. Patient says she had some associated nausea yesterday, but is not currently nauseous. She denies fevers/chills, shortness of breath, vomiting, diarrhea, constipation (last BM yesterday). Review of Systems: Pertinent positives are above, all others are negative. Medications: Reviewed in PRISM Objective: VS: Temp: [35.6 ??C (96.1 ??F)-36.5 ??C (97.7 ??F)] (), Pulse: [96] (), Resp: [11- 21] (), BP: (89-133)/(67-107) (), SpO2: [92 %-100 %] () I&O: Intake/Output Summary (Last 24 hours) at 08/25/17 0859 Last data filed at 08/25/17 0141 Gross per 24 hour Intake 230 ml Output 0 ml Net 230 ml Exam: Gen: NAD. AAOx3 Skin: Warm. Dry. No rashes or lesions HEENT: NC/AT. Anicteric Sclera. MMM Pulm: CTAB. No wheezing, rales, or rhonchi Card: RRR. S1, S2 normal. No murmurs, rubs, or gallops Abd: Soft. Obese, non-distended. Tender to palpation in left upper quadrant. Normoactive bowel sounds Ext: No edema or cyanosis. Neuro: Spontaneously moving bilateral upper and lower extremities without focal deficits Labs: CBC: Recent Labs 08/24/17182908/25/17 06 WBC 1.43* 1.18* RBC 4.14 3.91 HGB 11.9 11.2* HCT 35.0 33.5* MCV 85 86 MCH 28.7 28.6 MCHC 34.0 33.4 PLT 48* 40* NEUTROABS 1.03* -- BMP: Recent Labs 08/24/17182908/25/17 06 NA 144 141 K 3.9 3.6 CL 107 105 CO2 27 28 BUN 12 14 CREATININE 0.76 0.76 LABALBU 3.9 -- Coags: Recent Labs 08/24/17182908/25/17 06 PROTIME 14.2* 15.7* INR 1.2* 1.3* PTT 34 -- LFT: Recent Labs 08/24/17182908/25/17 06 TBIL 0.9 0.9 ALKPHOS 116 112 AST 23 43 ALT 42 48 LIPASE 45 -- ABG: Imaging: No new imaging. Assessment: Tara Boothe is a 57 y.o. female with a PMHx of cirrhosis of the liver secondary to nonalcoholicfatty liver disease, GERD, hypersplenism, thrombocytopenia, leukopenia, asthma, prior history of nephrolithiasis, MGUS, chronic splenic vein thrombosis (since November), chronic intermittent hematuria presents with several days of left flank pain and hematuria, persistent despite previous ER visit with CAT scan negative for nephrolithiasis. Plan: Progression of Splenic vein thrombosis: Chronic, possible enlargement on CT, although unclear if this is the etiology of the patient's pain. Does not extend into portal vein. Followed by [facility], who when last saw the patient, decided not to anticoagulate. -Heparin drip--possibly not appropriate with platelet count and high bleeding risk I suspect anticoagulation may not be the answer noting she has had this for months and noting her low platelet count -Hematology consult -Zofran for nausea control -1 time dose of oxycodone, no further narcotics ?? Hematuria: Chronic, intermittent, (per chart review, as far back as 2014), patient was to follow-upwith urology on 09/08. History of kidney stones and thrombocytopenia. -Discussed with urology while inpatient, patient is supposed to see Dr. Jordan Dickens as an outpatient ?? PTSD/Anxiety: -MedPsych consult indicated -Prior to admission Xanax ?? 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 GERD: -Prior to admission pantoprazole ?? Leukopenia, thrombocytopenia: Stable, per Dr. Paige's note in June, secondary to liver diseaseand hypersplenism -CBC daily ?? VTE Prophylaxis heparin gtt ?? Code Status: Full Code Disposition: Uncertain at this time Terra Olsen MD I have personally seen and examined the patient. I reviewed the laboratory and radiographic results. The case was discussed with the medicine house staff and I agree with the findings above and plan of care documented. Please see my additional comments in blue. Nikos Bautista MD [place] Division of Hospital Medicine * Araceli Perry RT - 08/24/20172227 EDT Respiratory Consult/Progress Note Indications for Respiratory therapy: HX asthma/COPD Data Vitals: Heart Rate: 87 BPM, Resp: 16, SpO2: 98 % FIO2/O2 Device: , , O2 Device: None, FIO2 %: 21 % RT Orders: pending Protocol Scoring: Bronchodilator/Inhalation Therapy Frequency Bronchodialator - Clinical Indications: History of COPD Breath Sounds: Any abnormal BS decreased Response: No change / no treatment Pulse: <100 Resp Rate: <18 SOB: With exertion Total Score: 2 Comment:: cont home routine Airway Clearance Therapy Frequency Airway Clearance - Clinical Indications: No clinical indications Breath Sounds: Clear / diminished Sputum: Small (tsp) / None Consistency: None Cough Effort: Strong, non-productive Color: None Total Score: 0 Comment: prn Hyperinflation Therapy Frequency Hyperinflation - Clinical Indications: No clinical indications Breath Sounds: Other Surgery: No X-Ray / Atelectasis: No O2 Requirements: O2 at baseline Mobility Status: Mobile / at baseline Total: 1 Comment: prn Action/Events Consult complete. Pt uses Albuterol BID and Flovent BID. Spacer given. Pt can use independently. Nohome oxygen. Pt does not use BIPAP/CPAP. Response/Results MDI's can be switched to RT MELISSA 08/24/17 documented in this encounter H&P Notes * Edgardo Montiel MD - 08/24/20172236 EDT Medicine Admission History & Physical Service Date: 08/24/2017 Admit Date: 08/24/2017 22:19 Primary Care Provider: Provider None Chief Complaint: Hematuria and left sided abd pain FINA Boothe is a 57 y.o. female with a PMHx of cirrhosis of the liver secondary to nonalcoholicfatty liver disease, GERD, hypersplenism, cytopenia, leukopenia, asthma, prior history of nephrolithiasis, MGUS, portal and splenic vein thrombosis, chronic Hematuria (on and off) presents with several days of left flank pain and hematuria, persistent despite previous ER visit with CAT scan negative for nephrolithiasis. She notes that the hematuria has been intermittent for the past few days. Shewoke up this morning with hematuria the same pain that initially brought her to the ER last week. She notes that the pain is sharp, radiates across her abdomen has had this previously when she had her nephrolithiasis. No agg/relieving factors. She also complains of profuse bruising, occasional cough, recent cold. She denies hematemesis, melena, hematochezia, hemoptysis, recent use of NSAIDs, dysuria, change in bowel habits, new medications, short as of breath, chest pain, gum bleeding, epistaxis. Of note, she has had hematuria for several months and has had this extensive workup. Review of Systems A complete 10 point ROS was performed and pertinent positive and negative findings listed in HPI, otherwise negative. Past Medical History: Diagnosis Date ??? Asthma [...] ??? KNEE SURGERY ??? TONSILLECTOMY Social History Substance Use Topics ??? Smoking status: Current Every Day Smoker Packs/day: 0.50 Years: 20.00 ??? Smokeless tobacco: Never Used ??? Alcohol use No Family History Problem Relation Age of Onset ??? Cancer Maternal Grandmother No current outpatient prescriptions on file. Allergies Allergen Reactions ??? Morphine Anaphylaxis ??? Tylenol [Acetaminophen] Other (See Comments) Contraindication with medical hx ??? Toradol [Ketorolac] Shortness Of Breath ??? Aspirin Other (See Comments) Contraindication with medical hx ??? Reglan [Metoclopramide Hcl] Rash ??? Sulfa (Sulfonamide Antibiotics) Rash Objective Vitals Temp: [36.5 ??C (97.7 ??F)] (), Heart Rate: [75 BPM-92 BPM] (), Pulse: [96] (), Resp: [11-21] (), BP: (89-133)/(67-107) (), SpO2: [92 %-100 %] (), Numeric Pain Level (Scale 1-10): 9 Weight: Weight : 90.7 kg (200 lb) Body mass index is 33.28 kg/(m^2). Physical Exam GEN: Patient is alert and oriented ??4, resting comfortably in bed, anxious and occasionally tearful HEENT: Dry mucous membranes, no cervical lymphadenopathy CARD: Regular rate and rhythm, no murmurs, rubs, gallops RESP: Equal entry of air bilaterally in all lung godwin, no crackles, rhonchi, wheezes ABD: Soft, left upper quadrant tenderness to palpation, epigastric tenderness to palpation, no rebound tenderness or guarding, unable to assess hepatosplenomegaly LE: No lower cavity edema noted NEURO: Extraocular movements intact, PERRLA, uvula elevates symmetrically and tongue protrudes in midline PSYCH: Reduced insight, appropriate mood and affect : No Carl in place Pressure Ulcer Present on admission? No Labs I have personally reviewed Recent Labs 08/24/17 1830 WBC 1.43* RBC 4.14 HGB 11.9 HCT 35.0 MCV 85 MCH 28.7 MCHC 34.0 PLT 48* NEUTROABS 1.03* Recent Labs 08/24/17 1830 NA 144 K 3.9 CL 107 CO2 27 BUN 12 CREATININE 0.76 LABALBU 3.9 Recent Labs 08/24/17 1830 PROTIME 14.2* INR 1.2* PTT 34 Recent Labs 08/24/17 1830 TBIL 0.9 ALKPHOS 116 AST 23 ALT 42 LIPASE 45 Recent Labs 08/24/17 1905 WBCU Field Obscured RBCU Innum SQUAEPIU Field Obscured* RENEPIU Field Obscured* BACTERIA Field Obscured* CRYST Field Obscured LABCAST Field Obscured Imaging I have independently visualized images Ct Abdomen, Pelvis W Contrast Impression: 1. Interval increase in the amount of splenic vein thrombus since February 2017, now extending over the region of the elizabeth splenic confluence. There is no evidence of extension into the portal veins. 2. Redemonstrated cirrhosis and findings of portal hypertension with hepatosplenomegaly. 3. Interval improvement in appearance of nonspecific mesenteric fat stranding. 4. Status post cholecystectomy, hysterectomy, appendectomy, and abdominal wall hernia repair. 5. Unchanged enhancing right hepatic dome lesion. 6. Stable mild intra and extra hepatic biliary ductal dilatation related to cholecystectomy. 7. Atherosclerosis. 8. Degenerative disease of the spine. Assessment Tara Boothe is a 57 y.o. female with a PMHx significant for cirrhosis of the liver secondary to nonalcoholic fatty liver disease, GERD, hypersplenism, cytopenia, leukopenia, asthma, prior history of nephrolithiasis, MGUS, portal and splenic vein thrombosis who presents with left flank pain and hematuria and diagnosed with splenic vein thrombosis. Hematologyconsulted in the ER and recommended anticoagulation. Plan Progression of Splenic vein thrombosis: Known previously, possible enlargement although unclear if this is the etiology of the patient's pain -Heparin drip -Hematology consult in the a.m. -Zofran for nausea control -1 time dose of tramadol for pain control given Hematuria: Patient is expands hematuria intermittently for several months to years, patient was to follow-up with urology and this appointment was moved up -Discussed with urology while inpatient, patient is supposed to see Dr. 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 Anticipated duration of hospitalization is greater than two midnights due to Splenic vein thrombosis. eKra Barnett MD 08/24/2017 22:37 I have reviewed the previous notes, labs and radiology data. I have seen and examined the patient and agree with the assessment and plan as mentioned above in Dr Barnett's note above. Changes are noted in underline. Progression of splenic vein thrombosis and ongoing intermittent hematuria -- Heparin gtt as per Hematology recs Watch closely for worsening hematuria Urology inputs in am D/w Er physician EDGARDO MONTIEL MD documented in this encounter Consult Notes * Starr Paige MD - 08/25/2017 1441 EDT Images from the original note were not included. Hematology New Patient Consult Date of Visit:08/25/2017 Reason for Consultation: Progression of splenic vein thrombosis Referring Physician: Dr Nguyen History of Present Illness: 57-year-old female with a history of cirrhosis secondary to [place], MGUS and chronic splenic vein thrombosis presents with left flank pain and hematuria. Patient states that she had had worsening left-sided flank pain radiating to the left mid abdomen in addition to multiple episodes of bright red blood in her urine. She has had this multiple times before and has been evaluated in our ED getting multiple CT scans with renal protocol. Her last scan that was positive for renal stone was in 2014 at which time she underwent stent placement. She has continued from that point to have on and off hematuria associated with left- sided flank pain. 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 She has a known history of chronic splenic vein thrombosis. Heme consult called for worsening of splenic vein thrombosis with extension into the portal veins. Today patient is comfortable, she denies any further hematuria since this morning, her left-sided flank pain has resolved. Patient Active Problem List Diagnosis Date Noted ??? (H)Splenic vein thrombosis 08/24/2017 Priority: Medium ??? (H)Hematuria, gross 08/24/2017 Priority: Medium ??? Hypersplenism syndrome Priority: Medium ??? Hypoglycemia 02/23/2017 Priority: Medium ??? Drug-seeking behavior Priority: Medium Per Dr Amelia Tijerina and notes from [facility] patient misconstrued information to several providers about multiple concurrent opiate prescription ??? Vasovagal syncope 02/21/2017 Priority: Medium ??? Neutropenia (HCC) 02/21/2017 Priority: Medium ??? Epigastric pain 02/21/2017 Priority: Medium ??? Syncope 02/21/2017 Priority: Medium ??? C. difficile colitis 07/25/2015 Priority: Medium ??? Pancytopenia (HCC) 07/18/2015 Priority: Medium ??? Acute left flank pain 07/18/2015 Priority: Medium ??? Mild persistent asthma without complication 07/18/2015 Priority: Medium ??? NAFLD (nonalcoholic fatty liver disease) 07/18/2015 Priority: Medium ??? Splenomegaly 07/18/2015 Priority: Medium ??? Neck mass 08/13/2015 ??? Pyelonephritis 07/18/2015 ??? Nausea with vomiting 07/17/2015 ??? Chest pain 07/17/2015 ??? Kidney stone 07/12/2015 Current Facility-Administered Medications Medication Route Frequency ??? albuterol inhaler 2 Puff inhalation Q4H ??? ALPRAZolam (XANAX) tablet 1 mg oral TID ??? fluticasone (FLOVENT) 110 mcg/actuation inhaler 1 Puff inhalation BID ??? heparin 1,000 unit/mL injection ??? heparin in / NS 25,000 unit/250 mL infusion intravenous CONTINUOUS ??? levothyroxine (SYNTHROID) tablet 250 mcg oral DAILY ??? lidocaine 5 % (LIDODERM) patch 1 Patch transdermal DAILY ??? pantoprazole (PROTONIX) tablet 40 mg oral DAILY ??? prochlorperazine (COMPAZINE) tablet 5 mg oral Q6H PRN ??? rifAXImin (XIFAXAN) tablet 550 mg oral BID ALLERGIES Allergies Allergen Reactions ??? Morphine Anaphylaxis ??? Tylenol [Acetaminophen] Other (See Comments) Contraindication with medical hx ??? Toradol [Ketorolac] Shortness Of Breath ??? Aspirin Other (See Comments) Contraindication with medical hx ??? Reglan [Metoclopramide Hcl] Rash ??? Sulfa (Sulfonamide Antibiotics) Rash SOCIAL HISTORY FAMILY HISTORY Social History Substance Use Topics ??? Smoking status: Current Every Day Smoker Packs/day: 0.50 Years: 20.00 ??? Smokeless tobacco: Never Used ??? Alcohol use No Family History Problem Relation Age of Onset ??? Cancer Maternal Grandmother REVIEW OF SYSTEMS: A complete 10 point review of systems was performed and is otherwise negative. Physical Exam: BP 111/68 (BP Cuff Location: Right arm, Patient Position: Sitting) Pulse 96 Temp 36.2 ??C (97.2??F) (Tympanic) Resp 20 Ht 165.1 cm (65) Wt 92.5 kg (203 lb 14.4 oz) SpO2 98% BMI 33.93 kg/m2 General: Nontoxic, no apparent distress, appears stated age. Eyes: Sclerae anicteric, pupils equally reactive to light and accommodation. Extraocular movements intact. ENT/neck: Oral mucosa without lesions. Oropharynx is clear. Neck is supple, without masses or thyromegaly. Chest is clear to auscultation and percussion bilaterally. Cardiovascular: Regular rate and rhythm, no murmurs, gallops or rubs. Abdomen is soft, nontender, nondistended with normal abdominal bowel sounds, no hepatosplenomegaly,no palpable masses. Extremities: No clubbing, cyanosis or edema. Heme/lymph: No cervical, supraclavicular, axillary or inguinal adenopathy. Neuro: Oriented and appropriate. Motor symmetric. Speech fluent. No cranial nerve palsies. Labs: Lab Results Component Value Date WBC 1.18 (L) 08/25/2017 HGB 11.2 (L) 08/25/2017 HGB 11.9 08/24/2017 HGB 11.6 08/20/2017 HCT 33.5 (L) 08/25/2017 MCV 86 08/25/2017 RDWCV 14.4 08/25/2017 PLT 40 (L) 08/25/2017 Lab Results Component Value Date NA 141 08/25/2017 K 3.6 08/25/2017 CL 105 08/25/2017 CO2 28 08/25/2017 BUN 14 08/25/2017 CREATININE 0.76 08/25/2017 CALCGFR 87 08/25/2017 Lab Results Component Value Date PROTIME 15.7 (H) 08/25/2017 PROTIME 14.2 (H) 08/24/2017 PROTIME 14.7 (H) 02/22/2017 INR 1.3 (H) 08/25/2017 INR 1.2 (H) 08/24/2017 INR 1.2 (H) 02/22/2017 PTT 34 08/24/2017 PTT 34 07/12/2015 Assessment: 57-year-old patient with a known history of hepatic cirrhosis due to [place], pancytopenia with neutrophils of 1.03 secondary to hepatosplenomegaly and chronic splenic vein thrombosis presents with left-sided flank pain and hematuria and found to have progression of her known splenic vein thrombosis wi th extension into the portal vein. She was started on heparin drip since yesterday evening and has had one subtherapeutic level of 0.26. Her d-dimer is elevated to 722, INR 1.3, PT 15.7. Her hemoglobin is 11.2, at her baseline Hb, and her platelet count is 45, her platelet count has been range of 40-60 since 2014. Patient reports easy bruising, difficulty with stopping bleeding after small superficial laceration. In addition she has ongoing hematuria currently unknown etiology, possibly due to passing of multiple kidney stones. Urine cytology done in 2001 was negative for malignant cells. Shehas been referred to urology, appointment is scheduled for Sep 08. Her portal vein thrombosis is chr onic dating back to 01/03/2017 at which time it was read as acute versus subacute. This has gone untreated from that point and patient has not developed any clear clinical symptoms of sequelae including bowel ischemia or infarction, obstructive pattern of hyperbilirubinemia, acute worsening of ascites. Plan: - hold all anticoagulation until patient stops having hematuria, - If no hematuria, preferrably after evaluation with urology would recommend starting a prophylactic dosing of lovenox or heparin subcutaneous - she continues to have close FU with outpatient hepatology at [facility], with next appointment on Aug 31 for regular HCC surveillance and further consideration to place patient on transplant list. Pt seen, examined and evaluated with the attending Dr. Royal Flores MD PGY4 Hematology Oncology Fellow [facility] ATTENDING ATTESTATION: I have personally reviewed/discussed/seen and examined the patient with the team at the time of thevisit. I have revised the note as needed, and I agree with the assessment and plans as described above. documented in this encounter ED Notes * Tata Colón RN - 08/24/2017 3656 EDT Medicine team at the bedside * Tata Colón RN - 08/24/2017 2207 EDT MD Mejia at the bedside * Tata Colón RN - 08/24/20176 EDT Patient asking for pain medication, appears sleepy and in NAD texting in bed. MD notified. * Tata Colón RN - 08/24/20173 EDT Patient ringing call hines stating that pain medicine did nothing. notified. Patient assisted to wheelchair to bathroom. Urine sample obtained and sent to lab. Patient back to bed, VS reassessed,given warm blanket for comfort. Awaiting CT. Call hines within reach. * Radha Mejia MD - 08/24/2017 1834 EDT DOS: 08/24/2017 Chief Complaint Patient presents with ??? Loss of Consciousness Arrives reporting increased weakness. Patient passed out while walking to waiting room. Patient states everything became black. Known low PLT count. 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 HPI I, Brian Filomena, am scribing for Radha Mejia MD while he/she is personally performing the service. Brian Butt 08/24/2017 18:34 Tara Boothe is a 57 y.o. female with a history of nonalcoholic fatty liver disease, pancytopenia, thrombocytopenia, hypersplenism, portal vein hypertension, and kidney stones with a recent admission for hypotension. She was seen here 2 days ago and a [address] Renal Colic showed no ureteral stone or hy dronephrosis. She improved after pain medication and fluids and was discharged home. Patient presents to the ED today after a syncopal episode today. Patient states that she became dizzy and lightheaded, causing her to pass out. She then called Dr. Dickens's office and was told to come to the ED. Patient states her urine has been bright red. She also endorses severe left-sided flank pain which is worse with palpation and associated with nausea. She denies any pain on her right side. Social history: Smokes cigarettes (0.5 ppd, 10 pack-years). No alcohol use. The history is provided by the patient and medical records. Review of Systems Review of Systems Constitutional: Negative. Negative for chills and fever. HENT: Negative. Negative for congestion, sore throat and trouble swallowing. Eyes: Negative. Negative for visual disturbance. Respiratory: Negative. Negative for chest tightness and shortness of breath. Cardiovascular: Negative. Negative for chest pain, palpitations and leg swelling. Gastrointestinal: Positive for nausea. Negative for abdominal distention and vomiting. Endocrine: Negative. Genitourinary: Positive for flank pain and hematuria. Negative for dysuria and frequency. Musculoskeletal: Negative for arthralgias. Skin: Negative. Negative for rash. Allergic/Immunologic: Negative. Negative for immunocompromised state. Neurological: Negative. Negative for dizziness and headaches. Hematological: Negative for adenopathy. Psychiatric/Behavioral: Negative. Negative for confusion. All other [...] ??? Sulfa (Sulfonamide Antibiotics) Rash Vital Signs Vitals Reassessment?: Yes Temp: 35.6 ??C (96.1 ??F) Temp src: Tympanic Pulse: 96 Heart Rate: 79 BPM Cardiac Rhythm: Normal sinus rhythm Resp: 18 SpO2: 97 % BP: 130/82 BP MAP: 88 mm Hg BP Device: BP Machine Patient Position: Semi fowlers BP Cuff Location: Right arm O2 Flow Rate (L/min): 0 l/min O2 Device: None (Room air) Physical Exam Constitutional: She is oriented to person, place, and time. She appears well- developed and well-nourished. No distress. HENT: Head: Normocephalic and atraumatic. Eyes: Conjunctivae are normal. Pupils are equal, round, and reactive to light. Right eye exhibits no discharge. Left eye exhibits no discharge. Neck: Normal range of motion. No tracheal deviation present. Cardiovascular: Normal rate and regular rhythm. Pulmonary/Chest: Effort normal. No respiratory distress. Abdominal: She exhibits no distension and no fluid wave. There is no tenderness (no RUQ tenderness). There is CVA tenderness (left). There is no rebound and no guarding. Left flank tenderness. Musculoskeletal: Normal range of motion. She [...] interpreted by me. EKG showed normal sinus rhythm, rate of 92, nonspecific ST abnormalities, unchanged from prior. Radiology orders: CT ABDOMEN, PELVIS W CONTRAST Patient had a CT Abdomen/Pelvis with contrast, which was significant for: 1. Interval increase in the amount of splenic vein thrombus since February 2017, now extending over the region of the elizabeth splenic confluence. There is no evidence of extension into the portal veins. 2. Redemonstrated cirrhosis and findings of portal hypertension with hepatosplenomegaly. 3. Interval improvement in appearance of nonspecific mesenteric fat stranding. 4. Status post cholecystectomy, hysterectomy, appendectomy, and abdominal wall hernia repair. 5. Unchanged enhancing right hepatic dome lesion. 6. Stable mild intra and extra hepatic biliary ductal dilatation related to cholecystectomy. 7. Atherosclerosis. 8. Degenerative disease of the spine. Patient had CT that was obtained, reviewed, and interpreted by myself and discussed with a radiologist. Please see radiology report for further details. ED Lab Results Labs Reviewed URINALYSIS MICROSCOPIC ONLY - Abnormal Result Value Status Squam Epithel, UA Field Obscured (*) Final Renal Epithel, UA Field Obscured (*) Final Bacteria, UA Field Obscured (*) Final WBC, UA Field Obscured Final RBC, UA Innum Final Crystals, UA Field Obscured Final Casts, UA Field Obscured Final UA Comment Microscopic results Final HEMAGRAM AND DIFFERENTIAL - Abnormal WBC 1.43 (*) Final PLT 48 (*) Final ABS Neutrophils 1.03 (*) Final ABS Lymphs 0.17 (*) Final RBC 4.14 Final Hemoglobin 11.9 Final HCT 35.0 Final MCV 85 Final MCH 28.7 Final MCHC 34.0 Final RDW-CV 14.4 Final RDW-SD 44.2 Final MPV 10.8 Final Neutrophils 72.0 Final Lymphocytes 12.0 Final Monocytes 13.0 Final Eosinophils 3.0 Final ABS Monocytes 0.19 Final ABS Eosinophils 0.04 Final Type of Diff: Manual Final PROTIME - Abnormal Pro Time 14.2 (*) Final I.N.R. 1.2 (*) Final HOLD BLUE TOP Hold Blue Top Final Value: Sample for coagulation will be discarded after 4 hours HOLD GREEN TOP Hold Green Top Final Value: Hold for further testing. Specimen will be held for 5 days. HOLD SST Hold SST Final Value: Hold for further testing. Specimen will be held for 5 days. HOLD PURPLE TOP Hold Purple Top Final Value: EDTA for hematology will be discarded after 48 hours, differential not available after 12 hours. ED/URGENT CARE ADD-ON Tests to be added Final Value: HEMAGRAM WITH DIFFERENTIAL,LIPASE,LIVER PANEL,BUN AND CREATININE,ELECTROLYTES,GLUCOSE, SERUM Number for problems [id number] (ED) Final ED/URGENT CARE ADD-ON Tests to be added PTT, PT Final Number for problems [id number] (ED) Final BUN BUN 12 Final CREATININE Creatinine 0.76 Final GFR, Calculated 87 Final LIPASE Lipase 45 Final HEPATIC FUNCTION PANEL (ALB,ALK PHOS,ALT,AST,DBIL,TOT LUIS,TOT PROT) Albumin 3.9 Final Total Protein 6.7 Final Total Alkaline Phosphatase 116 Final ALT 42 Final AST 23 Final Unconjugated Bilirubin 0.5 Final Conjugated Bilirubin 0.0 Final Bilirubin, Total 0.9 Final ELECTROLYTES Sodium 144 Final Potassium 3.9 Final Chloride 107 Final CO2 27 Final GLUCOSE, SERUM Glucose, Serum 78 Final PTT PTT 34 Final Patient had labs that were reviewed independently by myself, significant for white blood count low at 1.4, thrombocytopenia with platelet count of 48, normal renal function, normal electrolytes, and normal LFTs. Relevant Data Procedures ED COURSE A medical screening exam was performed. 57 year old female with a history of nonalcoholic fatty liver disease, pancytopenia, thrombocytopenia, hypersplenism, and kidney stones presents after a syncopal episode today, also complaining of left flank pain, nausea, and hematuria. Multiple etiologies were considered for this patient's symptoms including splenic v. Thrombus, portal v. Thrombus, splenic infarct, pyelonephritis.. EKG showed normal sinus rhythm, rate of 92, nonspecific ST abnormalities, unchanged from prior. Patient given Zofran 4 mg IV and Dilaudid 1 mg IV. Labs significant for white blood count low at 1.4, thrombocytopenia with platelet count of 48, normal renal function, normal electrolytes, and normal LFTs. 2134: Discussed with general surgery, who agreed to evaluate the patient. CT Abdomen/Pelvis with contrast showed interval increase in the amount of splenic vein thrombus since February 2017, now extending over the region of the elizabeth splenic confluence. No evidence of extension into the portal veins. 1999: Discussed with hematology who felt should be anticoagulated and admitted to medicine. 2004: Re-evaluation. Discussed the results of the CT scan with the patient and the plan to start onanticoagulants, which she understood. Patient complaining of more nausea. She was started on a continuous heparin infusion and given Zofran 4 mg IV. 2009: Spoke with internal medicine, who agreed to admit. Started on Heparin, no bolus, only infusion. Patient admitted to internal medicine. ASSESSMENT AND PLAN Final diagnoses: Splenic vein thrombosis Hematuria, gross DISPOSITION: Admitted The patient's pain was managed to [...] departure from the Emergency Department: Stable PCP: Provider None MDM This documentation is recorded by Brian Butt acting as Scribe under the direction and presence of Radha Mejia MD. Radha Mejia MD: I personally performed the services recorded by the scribe in my presence. I confirm the scribe's documentation has been reviewed by me to accurately and completely record my work, treatment, procedures, and medical decision making. 08/25/2017 9:05 No flowsheet data found. * Tata Colón, KENN - 08/24/2017 7189 EDT Patient requesting to use bathroom, refusing bedside commode. Patient assisted to wheelchair to bathroom, able to provide urine sample at this time- bright red and cloudy, patient states this is how her urine looked the last time she was here, it cleared up and then started to have this appearance again last night. Patient assisted back to bed, placed on bedside advertising clerk. documented in this encounter Miscellaneous Notes * Plan of Care - Ginny Haas RN - 08/26/2017 1054 EDT Problem: Daily Care Plan Goals Goal: Care Plan Documentation Outcome: Met This Shift 08/26/17 0930 Care Plan Focus Area of Focus Discharge Plan Goal This Shift discharge home D: Discharge per MD orders A: Reviewed discharge instructions,medications,prescriptions and appointments. Removed IV. R: States understanding. Ambulated off unit ,meeting ride at the front door of the [facility]. * Plan of Care - Tiny Lira RN - 08/26/2017 0251 EDT Problem: Daily Care Plan Goals Goal: Care Plan Documentation Outcome: Ongoing 08/26/17 0030 Care Plan Focus Area of Focus GI//Elimination Goal This Shift pt will report improved nausea overnight Data: VS stable overnight, no telemetry per order. Patient complaining of 7/10 left abdominal/flankpain that she reports nothing we give her helps. Patient frustrated at start of shift, stating she wants to go home tomorrow. Patient requesting zofran instead of compazine for nausea, but was asleep by the time the order was obtained. Patient up ad patricia in the room, using call light appropriatelyfor needs. Patient denies hematuria overnight. Action: MD aware of patient's complaints of uncontrolled pain. 1x order of tramadol administered for pain, benadryl and rozerem administered as sleep aids. Patient educated on plan of care and medications. Response: Patient sleeping soundly on pain reassessments and hourly checks, will continue to monitor. Tiny Lira RN 08/26/2017 2:47 * Plan of Care - Razia Garcia RN - 08/25/2017 4767 EDT Problem: Daily Care Plan Goals Goal: Care Plan Documentation Outcome: Ongoing 08/25/17 0800 Care Plan Focus Area of Focus Pain/ Comfort Goal This Shift pain less than 5 Data: assumed care of pt at 0700. Pt a/o x 3 and VSS. Pt c/o 06/30 left abdominal pain radiating to left flank area. Pt denies SOB and dizziness but states she is very tired. Pt c/o nausea. Action: lidocaine patch applied and 1 x order oxycodone given for pain see eMAR. Hep gtt increased per protocol no bolus given held per MD olsen verbal order. Reassessed pain 04/30. MD notified of present pain MD refusing to order meds due to drug seeking behavior in past. PRN Zofran given IV for nausea, ineffective MD notified and compazine ordered. PRN compazine given. Pt continue to c/o 06/30 pa in request to see MD. MD Taylor notified and at the bedside to assess. Response: will continue to monitor pain, nausea and VS. Razia Garcia RN 08/25/2017 12:04 * Plan of Care - Oni Gama RN - 08/25/2017 8550 EDT Problem: Daily Care Plan Goals Goal: Care Plan Documentation [id number] Tara Boothe 57 y.o. female Length of Stay: 0 day(s) Admitted: 08/24/2017 22:19 Service: [facility] Inpatient Services Code Status: Full Code Allergies reviewed and confirmed on admission: Morphine Tylenol [Acetaminophen] Toradol [Ketorolac] Aspirin Reglan [Metoclopramide Hcl] Sulfa (Sulfonamide Antibiotics) Allergy bracelet applied. 5:08-- D: Tara Boothe, a 57 y.o. female, admitted to [facility] at 2339 on 08/25/2017, arrived to [facility] Pt VSS. Pt continues to endorse abdominal pain treated with x 1 tramadol. Patient oriented to room, plan, and call hines use. A: Assessment as documented. Admission database complete. R: Oriented pt to use of call hines, and clarified that she needs to notify staff immediately if shenotices any change in her symptoms. RN will continue to monitor, and will medicate when applicable.Call hines within patient's reach. Oni Gama RN 5:08 08/25/2017 documented in this encounter Plan of Treatment Upcoming Encounters Date Type Department Care Team (Late st Contact Info) Description 01/04/2025 13:00 EST Office Visit [facility] Ophthalmology - [address] [phone] Gagandeep Rome MD [address] [place] [address] [address] [place] [address] 02/11/2025 13:30 EDT Telemedicine [facility] Hematology & Oncology [address] [phone] Dana Padilla MD [address] [place] [address], [facility] [address] [place] [id number] Scheduled Referrals Name Type Priority Associated Diagnoses Orde r Schedule AMB CONS/FOLLOW UP PRIMARY CARE PHYSICIAN Outpatient Referral Routine Splenic vein thrombosis Hematuria, gross Ordered: 08/26/2017 documented as of this encounter Procedures Procedure Name Priority Date/Time Associated Diagnosis Comments ECG REPORT - SCANNED 08/29/2017 15:22 EDT INPATIENT ADD-ON Routine 08/26/2017 9:15 EDT DIFFERENTIAL Routine 08/26/2017 5:48 EDT COMPLETE BLOOD COUNT Routine 08/26/2017 5:48 EDT INPATIENT ADD-ON Routine 08/25/2017 9:35 EDT PROTIME Routine 08/25/2017 6:00 EDT HEPARIN LEVEL - UNFRACTIONATED HEPARIN STAT 08/25/2017 6:00 EDT FIBRINOGEN Routine 08/25/2017 6:00 EDT D-DIMER Routine 08/25/2017 6:00 EDT COMPLETE BLOOD COUNT Routine 08/25/2017 6:00 EDT BUN Routine 08/25/2017 6:00 EDT ALT Routine 08/25/2017 6:00 EDT AST Routine 08/25/2017 6:00 EDT ALKALINE PHOSPHATASE Routine 08/25/2017 6:00 EDT CREATININE Routine 08/25/2017 6:00 EDT BILIRUBIN, TOTAL Routine 08/25/2017 6:00 EDT ELECTROLYTES Routine 08/25/2017 6:[address] ABDOMEN, PELVIS W CONTRAST STAT 08/24/2017 21:25 EDT ED/URGENT CARE ADD-ON STAT 08/24/2017 19:05 EDT ED/URGENT CARE ADD-ON STAT 08/24/2017 19:05 EDT URINE SEDIMENT (MICRO) WITHOUT REFLEX TO CULTURE STAT 08/24/2017 19:05 EDT HOLD SST STAT 08/24/2017 18:30 EDT HOLD PURPLE TOP STAT 08/24/2017 18:30 EDT HOLD GREEN TOP STAT 08/24/2017 18:30 EDT HOLD BLUE TOP STAT 08/24/2017 18:30 EDT PTT Routine 08/24/2017 18:30 EDT PROTIME Routine 08/24/2017 18:30 EDT COMPLETE BLOOD COUNT AND DIFFERENTIAL Routine 08/24/2017 18:30 EDT BUN Routine 08/24/2017 18:30 EDT LIPASE Routine 08/24/2017 18:30 EDT GLUCOSE, SERUM Routine 08/24/2017 18:30 EDT CREATININE Routine 08/24/2017 18:30 EDT HEPATIC FUNCTION PANEL (ALB,ALK PHOS,ALT,AST,DBIL,TOT LUIS,TOT PROT) Routine 08/24/2017 18:30 EDT ELECTROLYTES Routine 08/24/2017 18:30 EDT EKG 12-LEAD STAT 08/24/2017 17:16 EDT documented in this encounter Results * ECG REPORT - SCANNED (08/29/2017 15:22 EDT) 08/29/2017 15:2 2 EDT us Scan 2 Paste Maker PROCEDURE/MINOR SURGICAL OR DERABLES Final Result * INPATIENT ADD-ON (08/26/2017 9:15 EDT) Tests to be added DIFFERENTIAL TO CBC 08/26/2017 9:14 EDT [facility] Number for problems M5 08/26/2017 9:20 EDT [facility] Accession number [id number] 08/26/2017 9:20 EDT [facility] TOPOGRAPHY UNKNOWN / Unknown 08/26/2017 9:15 EDT 08/26/2017 9:20 EDT us Terra Olsen MD HEMATOLOGY & PF4 ORDERABLE S Final Result [facility] [address] [place] [address] * (ABNORMAL) DIFFERENTIAL (08/26/2017 5:48 EDT) Neutrophils 69.0 % 08/26/2017 9:56 EDT [facility] Lymphocytes 23.0 % 08/26/2017 9:56 T [facility] Monocytes 7.0 % 08/26/2017 9:56 EDT [facility] Basophils 1.0 % 08/26/2017 9:56 T [facility] ABS Neutrophils 0.62(L) 2.20 - 8.85 K/cmm 08/26/2017 9:56 T [facility] ABS Lymphs 0.20(L) 1.09 - 3.30 K/cmm 08/26/2017 9:56 T [facility] ABS Monocytes 0.06(L) 0.1 - 0.8 K/cmm 08/26/2017 9:56 T [facility] ABS Basophils 0.01 0.01 - 0.11 K/cmm 08/26/2017 9:56 T [facility] Type of Diff: Manual 08/26/2017 9:56 [facility] BLOOD SPECIMEN / Unknown 08/26/2017 5:48 EDT 08/26/2017 7:01 EDT us Mirna Bone MD HEMATOLOGY & PF4 ORDERABLES Final Result [facility] [address] [place] [address] * (ABNORMAL) HEMAGRAM (08/26/2017 5:48 EDT) WBC 0.89(LL) 4.0 - 12.4 K/cmm 08/26/2017 7:27 EDT [facility] RBC 3.77(L) 3.86 - 5.04 M/cmm 08/26/2017 7:27 T [facility] Hemoglobin 10.8(L) 11.6 - 15.2 gm/dl 08/26/2017 7:27 T [facility] HCT 32.1(L) 34.9 - 44.4 % 08/26/2017 7:27 [facility] MCV 85 81 - 98 fl 08/26/2017 7:27 T [facility] MCH 28.6 26.7 - 33.3 pg 08/26/2017 7:27 [facility] MCHC 33.6 32.1 - 35.9 gm/dl 08/26/2017 7:27 T [facility] RDW-CV 14.5 <14.7 % 08/26/2017 7:27 [facility] RDW-SD 44.8 <50.4 fl 08/26/2017 7:27 [facility] PLT 40(L) 141 - 377 K/cmm 08/26/2017 7:27 [facility] MPV 10.0 9.5 - 12.7 fl 08/26/2017 7:27 [facility] Blood specimen (specimen) BLOOD SPECIMEN / Unknown 08/26/2017 5:48 EDT 08/26/2017 7:01 EDT us Mirna Bone MD HEMATOLOGY & PF4 ORDERABLES Final Result [facility] [address] [place] [address] * INPATIENT ADD-ON (08/25/2017 9:35 EDT) Tests to be added C 08/25/2017 9:33 EDT [facility] Comment:DIMER, FIBRINOGEN Number for problems [id number] 08/25/2017 9:40 EDT [facility] Accession number [id number] 08/25/2017 9:49 EDT [facility] Comment:Corrected on 08/25 A T 0949: Previously reported as [id number] TOPOGRAPHY UNKNOWN / Unknown 08/25/2017 9:35 EDT 08/25/2017 9:40 EDT us Mary Flores MD HEMATOLOGY & PF4 ORDERABLES Ed ited Result - Final [facility] [address] [place] [address] * FIBRINOGEN (08/25/2017 6:00 EDT) Pathologist [facility] Fibrinogen 187 171 - 384 mg/dl 08/25/2017 9:53 EDT [facility] BLOOD SPECIMEN / Unknown 08/25/2017 6:00 EDT 08/25/2017 6:26 EDT us Radha Mejia MD HEMATOLOGY & PF4 ORDERABLES F inal Result Performing Organization Address City/[facility]/ZIP Co de Phone Number [facility] [address] [place] [address] * (ABNORMAL) D-DIMER (08/25/2017 6:00 EDT) Pathologist [facility] D-Dimer 722(H) <230 ng/mL 08/25/2017 9:53 EDT [facility] Comment: CUTOFF VALUE FOR THE [...] an age-adjusted cutoff for our specific assay. BLOOD SPECIMEN / Unknown 08/25/2017 6:00 EDT 08/25/2017 6:26 EDT us Radha Mejia MD HEMATOLOGY & PF4 ORDERABLES F inal Result Performing Organization Address City/[facility]/ZIP Co de Phone Number [facility] [address] [place] [address] * (ABNORMAL) HEMAGRAM (08/25/2017 6:00 EDT) WBC 1.18(L) 4.0 - 12.4 K/cmm 08/25/2017 6:57 EDT [facility] RBC 3.91 3.86 - 5.04 M/cmm 08/25/2017 6:57 EDT [facility] Hemoglobin 11.2(L) 11.6 - 15.2 gm/dl 08/25/2017 6:57 EDT [facility] HCT 33.5(L) 34.9 - 44.4 % 08/25/2017 6:57 EDT [facility] MCV 86 81 - 98 fl 08/25/2017 6:57 EDT [facility] MCH 28.6 26.7 - 33.3 pg 08/25/2017 6:57 EDT [facility] MCHC 33.4 32.1 - 35.9 gm/dl 08/25/2017 6:57 EDT [facility] RDW-CV 14.4 <14.7 % 08/25/2017 6:57 EDT [facility] RDW-SD 44.8 <50.4 fl 08/25/2017 6:57 EDT [facility] PLT 40(L) 141 - 377 K/cmm 08/25/2017 6:57 EDT [facility] MPV 10.9 9.5 - 12.7 fl 08/25/2017 6:57 T [facility] Blood specimen (specimen) BLOOD SPECIMEN / Unknown 08/25/2017 6:00 EDT 08/25/2017 6:26 EDT us Radha Mejia MD HEMATOLOGY & PF4 ORDERABLES F inal Result [facility] [address] [place] [address] * HEPARIN LEVEL - UNFRACTIONATED HEPARIN (08/25/2017 6:00 EDT) Heparin Level-UFH 0.26 IU/mL 017 6:46 EDT [facility] Comment: Unfractionated heparin therapeutic range = 0.3-0.7 IU/ml This test is not intended for monitoring direct Xa inhibitors, direct thrombin inhibitors, or fondaparinux. Exogenous ATIII is NOT supplied in this assay. For unexpected or persistently low levels, consider measuring patient's ATIII level. Sample retested, result confirmed Blood specimen (specimen) BLOOD SPECIMEN / Unknown 08/25/2017 6:00 EDT 08/25/2017 6:26 EDT us Radha Mejia MD HEMATOLOGY & PF4 ORDERABLES F inal Result Performing Organization Address [facility]/ZIP Co de Phone Number [facility] [address] [place] [address] * (ABNORMAL) PROTIME (08/25/2017 6:00 EDT) [facility] Signature Pro Time 15.7(H) 10.3 - 13.1 secs 08/25/2017 6:44 EDT [facility] I.N.R. 1.3(H) 0.9 - 1.1 Ratio 08/25/2017 6:44 EDT [facility] Comment: Moderate Intensity Coumadin INR = 2.0-3.0 Adjustments in anticoagulant therapy dose should be based upon the INR and NOT the Pro Time. Blood specimen (specimen) BLOOD SPECIMEN / Unknown 08/25/2017 6:00 EDT 08/25/2017 6:26 EDT us Kera Barnett MD HEMATOLOGY & PF4 ORDERABLES Pricila l Result [facility] [address] [place] [address] * BILIRUBIN, TOTAL (08/25/2017 6:00 EDT) [facility] Bilirubin, Total 0.9 <1.4 mg/dl 08/25/2017 7:31 EDT [facility] Blood specimen (specimen) BLOOD SPECIMEN / Unknown 08/25/2017 6:00 EDT 08/25/2017 6:26 EDT us Kera Barnett MD CHEMISTRY & BLOOD GAS ORDERABLES Final Result [facility] [address] [place] [address] * ALKALINE PHOSPHATASE (08/25/2017 6:00 EDT) Total Alkaline Phosphatase 112 38 - 126 U/L 08/25/2017 7:31 EDT [facility] Blood specimen (specimen) BLOOD SPECIMEN / Unknown 08/25/2017 6:00 EDT 08/25/2017 6:26 EDT us Kera Barnett MD CHEMISTRY & BLOOD GAS ORDERABLES Final Result [facility] [address] [place] [address] * AST (08/25/2017 6:00 EDT) AST 43 15 - 46 U/L 08/25/2017 7:31 EDT [facility] Blood specimen (specimen) BLOOD SPECIMEN / Unknown 08/25/2017 6:00 EDT 08/25/2017 6:26 EDT us Kera Barnett MD CHEMISTRY & BLOOD GAS ORDERABLES Final Result [facility] [address] [place] [address] * ALT (08/25/2017 6:00 EDT) ALT 48 <53 U/L 08/25/2017 7:31 EDT [facility] Blood specimen (specimen) BLOOD SPECIMEN / Unknown 08/25/2017 6:00 EDT 08/25/2017 6:26 EDT us Kera Barnett MD CHEMISTRY & BLOOD GAS ORDERABLES Final Result Performing Organization Address City/[facility]/ZIP Co de Phone Number [facility] [address] [place] [address] * CREATININE (08/25/2017 6:00 EDT) Creatinine 0.76 0.52 - 1.04 mg/dl 08/25/2017 7:31 EDT [facility] GFR, Calculated 87 >60 ml/min/1.7 3m2 08/25/2017 7:31 EDT [facility] Comment: eGFR calculated using CKD-EPI equation for non Americans. Multiply eGFR by 1.16 for Americans. Blood specimen (specimen) BLOOD SPECIMEN / Unknown 08/25/2017 6:00 EDT 08/25/2017 6:26 EDT us Kera Barnett MD CHEMISTRY & BLOOD GAS ORDERABLES Final Result Performing Organization Address [facility]/ZIP Co de Phone Number [facility] [address] [place] [address] * BUN (08/25/2017 6:00 EDT) BUN 14 10 - 26 mg/dl 08/25/2017 7:31 EDT [facility] Blood specimen (specimen) BLOOD SPECIMEN / Unknown 08/25/2017 6:00 EDT 08/25/2017 6:26 EDT us Kera Barnett MD CHEMISTRY & BLOOD GAS ORDERABLES Final Result Performing Organization Address City/[facility]/ZIP Co de Phone Number [facility] [address] [place] [address] * ELECTROLYTES (08/25/2017 6:00 EDT) Sodium 141 136 - 145 mEq/L 08/25/2017 7:31 EDT [facility] Potassium 3.6 3.5 - 5.0 mEq/L 08/25/2017 7:31 EDT [facility] Chloride 105 96 - 110 mEq/L 08/25/2017 7:31 EDT [facility] CO2 28 22 - 32 mEq/L 08/25/2017 7:31 EDT [facility] Blood specimen (specimen) BLOOD SPECIMEN / Unknown 08/25/2017 6:00 EDT 08/25/2017 6:26 EDT us Kera Barnett MD CHEMISTRY & BLOOD GAS ORDERABLES Final Result [facility] [address] [place] [address] * CT ABDOMEN, PELVIS W CONTRAST (08/24/2017 21:25 EDT) Anatomical Region Laterality Modality Other 08/24/2017 21:2 5 EDT 08/25/2017 10:23 EDT Narrative 08/25/2017 10:[address] ABDOMEN, PELVIS W CONTRAST ??08/24/2017 9:25 PM Signs and Symptoms/Comments: ?? severe left flank pain, h/o splenomegaly . Technique: CT of the abdomen and pelvis was performed following the administration intravenous contrast; coronal and sagittal multiplanar reconstructions generated. Comparison: CT renal colic from 08/20/2017, CT of the abdomen and pelvis from 02/21/2017 Findings: Lower chest: Mosaic attenuation of the lung bases can be seen in the setting of small airways disease. Included mediastinal structures are unremarkable. Hepatobiliary: Mild intrahepatic biliary ductal dilatation is stable from at least February with the common bile duct again seen to measure at least 9 mm, likely within normal limits in a post cholecystectomy patient. The liver continues to have a nodular surface of the trace volume of perihepatic subcapsular fluid, consistent with history of cirrhosis. Tiny enhancing lesion in the hepatic dome is unchanged (axial 24). Spleen, pancreas, adrenal glands: Splenomegaly is again identified with a small well-circumscribed hypodense lesion at the inferior aspect of the spleen appearing stable since February (axial 40). The adrenal glands and pancreas continue to appear normal. Kidneys, ureters, bladder: The kidneys enhance symmetrically with no hydronephrosis. No concerning mass is identified. The ureters are normal in caliber throughout their course to the level of the nondistended but normal-appearing urinary bladder. Uterus, ovaries: This patient is status post hysterectomy with no pelvic mass identified. Bowel: There is no large or small bowel obstruction. The patient is status post appendectomy. In comparison to the contrast-enhanced scan from February, there has been interval improvement in the previous were described as mesenteric fat stranding. No definite area of bowel wall thickening is identified, though evaluation is limited in the absence of complete luminal distention. Peritoneal cavity / Subperitoneal space: No free fluid or free air is identified. 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 This thrombus is not definitively seen to extend down into the mesenteric veins. The aorta remains normal in caliber throughout its course with minimal atherosclerotic calcification. The IVC appears normal. Multiple nonpathologically enlarged lymph nodes are present throughout the mesentery, with a cluster of nodes identified in the right mid abdomen (axial 151), unlikely be of clinical significance. Abdominal wall: There is evidence of prior anterior abdominal wall hernia repair with the repair mesh present. Musculoskeletal: There is multilevel mild degenerative disc disease and degenerative changes of the hips. Impression: 1. 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 2. Redemonstrated cirrhosis and findings of portal hypertension with hepatosplenomegaly. 3. Interval improvement in appearance of nonspecific mesenteric fat stranding. 4. Status post cholecystectomy, hysterectomy, appendectomy, and abdominal wall hernia repair. 5. Unchanged enhancing right hepatic dome lesion. 6. Stable mild intra and extra hepatic biliary ductal dilatation related to cholecystectomy. 7. Atherosclerosis. 8. Degenerative disease of the spine. Dr. Stefania Florence reviewed these findings with RADHA MEJIA MD on 08/24/2017 9:24 PM. I have personally reviewed the images and the above interpretation and agree with the findings. Procedure Note Prashanth Siddiqui MD - 08/25/2017 CT ABDOMEN, PELVIS W CONTRAST 08/24/2017 9:25 PM Signs and Symptoms/Comments: severe left flank pain, h/o splenomegaly . Technique: CT of the abdomen and pelvis was performed following the administration intravenous contrast; coronal and sagittal multiplanar reconstructions generated. Comparison: CT renal colic from 08/20/2017, CT of the abdomen and pelvis from 02/21/2017 Findings: Lower chest: Mosaic attenuation of the lung bases can be seen in the setting of small airways disease. Included mediastinal structures are unremarkable. Hepatobiliary: Mild intrahepatic biliary ductal dilatation is stable from at least February with the common bile duct again seen to measure at least 9 mm, likely within normal limits in a post cholecystectomy patient. The liver continues to have a nodular surface of the trace volume of perihepatic subcapsular fluid, consistent with history of cirrhosis. Tiny enhancing lesion in the hepatic dome is unchanged (axial 24). Spleen, pancreas, adrenal glands: Splenomegaly is again identified with a small well-circumscribed hypodense lesion at the inferior aspect of the spleen appearing stable since February (axial 40). The adrenal glands and pancreas continue to appear normal. Kidneys, ureters, bladder: The kidneys enhance symmetrically with no hydronephrosis. No concerning mass is identified. The ureters are normal in caliber throughout their course to the level of the nondistended but normal-appearing urinary bladder. Uterus, ovaries: This patient is status post hysterectomy with no pelvic mass identified. Bowel: There is no large or small bowel obstruction. The patient is status post appendectomy. In comparison to the contrast-enhanced scan from February, there has been interval improvement in the previous were described as mesenteric fat stranding. No definite area of bowel wall thickening is identified, though evaluation is limited in the absence of complete luminal distention. Peritoneal cavity / Subperitoneal space: No free fluid or free air is identified. 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 This thrombus is not definitively seen to extend down into the mesenteric veins. The aorta remains normal in caliber throughout its course with minimal atherosclerotic calcification. The IVC appears normal. Multiple nonpathologically enlarged lymph nodes are present throughout the mesentery, with a cluster of nodes identified in the right mid abdomen (axial 151), unlikely be of clinical significance. Abdominal wall: There is evidence of prior anterior abdominal wall hernia repair with the repair mesh present. Musculoskeletal: There is multilevel mild degenerative disc disease and degenerative changes of the hips. Impression: 1. 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 2. Redemonstrated cirrhosis and findings of portal hypertension with hepatosplenomegaly. 3. Interval improvement in appearance of nonspecific mesenteric fat stranding. 4. Status post cholecystectomy, hysterectomy, appendectomy, and abdominal wall hernia repair. 5. Unchanged enhancing right hepatic dome lesion. 6. Stable mild intra and extra hepatic biliary ductal dilatation related to cholecystectomy. 7. Atherosclerosis. 8. Degenerative disease of the spine. Dr. Stefania Florence reviewed these findings with RADHA MEJIA MD on 08/24/2017 9:24 PM. I have personally reviewed the images and the above interpretation and agree with the findings. us Radha Mejia MD IMG CT ORDERABLES Final Resul t * (ABNORMAL) URINALYSIS MICROSCOPIC ONLY (08/24/2017 19:05 EDT) WBC, UA Field Obscured 0 - 5 /HPF 08/24/2017 21:31 [facility] Comment:by RBCs RBC, UA Innum 0 - 5 /HPF 08/24/2017 21:31 [facility] Squam Epithel, UA Field Obscured(A) None seen /HPF 08/24/2017 21:31 [facility] Comment:by RBCs Renal Epithel, UA Field Obscured(A) None seen /HPF 08/24/2017 21:31 [facility] Comment:by RBCs Bacteria, UA Field Obscured(A) None seen /HPF 08/24/2017 21:31 [facility] Comment:by RBCs Crystals, UA Field Obscured /HPF 08/24/20 17 21:31 [facility] Comment:by RBCs Hyaline Casts, UA Field Obscured /LPF 08/24/2017 21:31 [facility] Comment:by RBCs UA Comment Microscopic results 08/24/2017 19:05 [facility] Comment: are unreliable on urines unrefrig >2hrs or refrig >8hrs. Urine specimen (specimen) URINE / Unknown 08/24/2017 19:05 EDT 08/24/2017 21:11 EDT Radha Mejia MD URINALYSIS ORDERABLES Final R esult Performing Organization Address [facility] Co de Phone Number [facility] [address] [place] [address] * ED/URGENT CARE ADD-ON (08/24/2017 19:05 EDT) Tests to be added PTT, PT 08/24/2017 19:04 EDT [facility] Number for problems [id number] (ED) 08/24/2017 19:04 EDT [facility] TOPOGRAPHY UNKNOWN / Unknown 08/24/2017 19:05 EDT 08/24/2017 19:27 EDT Radha Mejia MD HEMATOLOGY & PF4 ORDERABLES F inal Result Performing Organization Address [facility] Co de Phone Number [facility] [address] [place] [address] * ED/URGENT CARE ADD-ON (08/24/2017 19:05 EDT) Tests to be added HEMAGRAM WITH DIFFERENTIAL ,LIPASE,LIVE R PANEL,BUN AND CREATININE,E LECTROLYTES, GLUCOSE, SERUM 08/24/2017 19:03 EDT [facility] Number for problems [id number] (ED) 08/24/2017 19:03 EDT [facility] TOPOGRAPHY UNKNOWN / Unknown 08/24/2017 19:05 EDT 08/24/2017 19:08 EDT Radha Mejia MD HEMATOLOGY & PF4 ORDERABLES F inal Result Performing Organization Address City/[facility]/ZIP Co de Phone Number [facility] [address] [place] [address] * PTT (08/24/2017 18:30 EDT) PTT 34 26 - 37 secs 08/24/2017 19:44 EDT [facility] BLOOD SPECIMEN / Unknown 08/24/2017 18:30 EDT 08/24/2017 18:51 EDT us Fausto Roberts MD HEMATOLOGY & PF4 ORDERABLES Final Result Performing Organization Address City/[facility]/ZIP Co de Phone Number [facility] [address] [place] [address] * (ABNORMAL) PROTIME (08/24/2017 18:30 EDT) Pro Time 14.2(H) 10.3 - 13.1 secs 08/24/2017 19:44 EDT [facility] I.N.R. 1.2(H) 0.9 - 1.1 Ratio 08/24/2017 19:44 EDT [facility] Comment: Moderate Intensity Coumadin INR = 2.0-3.0 Adjustments in anticoagulant therapy dose should be based upon the INR and NOT the Pro Time. BLOOD SPECIMEN / Unknown 08/24/2017 18:30 EDT 08/24/2017 18:51 EDT Fausto Roberts MD HEMATOLOGY & PF4 ORDERABLES Final Result Performing Organization Address [facility]/ZIP Co de Phone Number [facility] [address] [place] [address] * GLUCOSE, SERUM (08/24/2017 18:30 EDT) Glucose, Serum 78 70 - 100 mg/dl 08/24/2017 19:26 EDT [facility] BLOOD SPECIMEN / Unknown 08/24/2017 18:30 EDT 08/24/2017 18:51 EDT Fausto Roberts MD CHEMISTRY & BLOOD GAS ORDERA BLES Final Result Performing Organization Address City/[facility]/ZIP Co de Phone Number [facility] [address] [place] [address] * ELECTROLYTES (08/24/2017 18:30 EDT) Sodium 144 136 - 145 mEq/L 08/24/2017 19:26 [facility] Potassium 3.9 3.5 - 5.0 mEq/L 08/24/2017 19:26 [facility] Comment: Interpret results with caution. Prolonged sample storage may alter result. Chloride 107 96 - 110 mEq/L 08/24/2017 19:26 [facility] CO2 27 22 - 32 mEq/L 08/24/2017 19:26 [facility] Comment: Interpret results with caution. Prolonged sample storage may alter result. BLOOD SPECIMEN / Unknown 08/24/2017 18:30 EDT 08/24/2017 18:51 EDT Fausto Roberts MD CHEMISTRY & BLOOD GAS ORDERA BLES Final Result [facility] [address] [place] [address] * HEPATIC FUNCTION PANEL (ALB,ALK PHOS,ALT,AST,DBIL,TOT LUIS,TOT PROT) (08/24/2017 18:30 EDT) Albumin 3.9 3.4 - 4.9 g/dl 08/24/2017 19:26 [facility] Total Protein 6.7 6.3 - 8.2 g/dl 08/24/2017 19:26 [facility] Total Alkaline Phosphatase 116 38 - 126 U/L 08/24/2017 19:26 [facility] ALT 42 <53 U/L 08/24/2017 19:26 [facility] AST 23 15 - 46 U/L 08/24/2017 19:26 [facility] Unconjugated Bilirubin 0.5 0.0 - 1.1 mg/dl 08/24/2017 19:26 [facility] Conjugated Bilirubin 0.0 0.0 - 0.3 mg/dl 08/24/2017 19:26 [facility] Bilirubin, Total 0.9 <1.4 mg/dl 08/24/20 17 19:26 EDT [facility] BLOOD SPECIMEN / Unknown 08/24/2017 18:30 EDT 08/24/2017 18:51 EDT us Fausto Roberts MD CHEMISTRY & BLOOD GAS ORDERA BLES Final Result Performing Organization Address City/[facility] Co de Phone Number [facility] [address] [place] [address] * LIPASE (08/24/2017 18:30 EDT) Lipase 45 <251 U/L 08/24/2017 19:26 EDT [facility] BLOOD SPECIMEN / Unknown 08/24/2017 18:30 EDT 08/24/2017 18:51 EDT us Fautso Roberts MD CHEMISTRY & BLOOD GAS ORDERA BLES Final Result Performing Organization Address [facility] de Phone Number [facility] [address] [place] [address] * CREATININE (08/24/2017 18:30 EDT) Creatinine 0.76 0.52 - 1.04 mg/dl 08/24/2017 19:26 EDT [facility] GFR, Calculated 87 >60 ml/min/1.7 3m2 08/24/2017 19:26 T [facility] Comment: eGFR calculated using CKD-EPI equation for non Americans. Multiply eGFR by 1.16 for Americans. BLOOD SPECIMEN / Unknown 08/24/2017 18:30 EDT 08/24/2017 18:51 EDT us Fausto Roberts MD CHEMISTRY & BLOOD GAS ORDERA BLES Final Result Performing Organization Address [facility] Co de Phone Number [facility] [address] [place] [address] * (ABNORMAL) HEMAGRAM AND DIFFERENTIAL (08/24/2017 18:30 EDT) WBC 1.43(L) 4.0 - 12.4 K/cmm 08/24/2017 19:35 [facility] RBC 4.14 3.86 - 5.04 M/cmm 08/24/2017 19:35 [facility] Hemoglobin 11.9 11.6 - 15.2 gm/dl 08/24/2017 19:35 [facility] HCT 35.0 34.9 - 44.4 % 08/24/2017 19:35 [facility] MCV 85 81 - 98 fl 08/24/2017 19:35 [facility] MCH 28.7 26.7 - 33.3 pg 08/24/2017 19:35 [facility] MCHC 34.0 32.1 - 35.9 gm/dl 08/24/2017 19:35 [facility] RDW-CV 14.4 <14.7 % 08/24/2017 19:35 [facility] RDW-SD 44.2 <50.4 fl 08/24/2017 19:35 [facility] PLT 48(L) 141 - 377 K/cmm 08/24/2017 19:35 [facility] MPV 10.8 9.5 - 12.7 fl 08/24/2017 19:35 [facility] Neutrophils 72.0 % 08/24/2017 19:53 [facility] Lymphocytes 12.0 % 08/24/2017 19:53 [facility] Monocytes 13.0 % 08/24/2017 19:53 [facility] Eosinophils 3.0 % 08/24/2017 19:53 [facility] ABS Neutrophils 1.03(L) 2.20 - 8.85 K/cmm 08/24/2017 19:53 [facility] ABS Lymphs 0.17(L) 1.09 - 3.30 K/cmm 08/24/2017 19:53 [facility] ABS Monocytes 0.19 0.1 - 0.8 K/cmm 08/24/2017 19:53 [facility] ABS Eosinophils 0.04 0.03 - 0.61 K/cmm 08/24/2017 19:53 EDT [facility] Type of Diff: Manual 08/24/2017 19:53 EDT [facility] BLOOD SPECIMEN / Unknown 08/24/2017 18:30 EDT 08/24/2017 18:51 EDT us Fausto Roberts MD PACKAGES & DNA PROBE ORDERAB LES Final Result Performing Organization Address [facility]/ZIP Co de Phone Number [facility] [address] [place] [address] * BUN (08/24/2017 18:30 EDT) BUN 12 10 - 26 mg/dl 08/24/2017 19:26 EDT [facility] BLOOD SPECIMEN / Unknown 08/24/2017 18:30 EDT 08/24/2017 18:51 EDT us Fausto Roberts MD CHEMISTRY & BLOOD GAS ORDERA BLES Final Result Performing Organization Address [facility] Co de Phone Number [facility] [address] [place] [address] * HOLD PURPLE TOP (08/24/2017 18:30 EDT) Hold Purple Top EDTA for hematology will be discarded after 48 hours, differential not available after 12 hours. 08/24/2017 19:04 EDT [facility] Blood specimen (specimen) BLOOD SPECIMEN / Unknown 08/24/2017 18:30 EDT 08/24/2017 18:51 EDT us Fausto Roberts MD LAB INFO SERVICE AND SUPPORT & PHONE RESULT Final Result Performing Organization Address [facility] Co de Phone Number [facility] [address] [place] [address] * HOLD SST (08/24/2017 18:30 EDT) Hold SST Hold for further testing. Specimen will be held for 5 days. 08/24/2017 19:15 EDT [facility] Blood specimen (specimen) BLOOD SPECIMEN / Unknown 08/24/2017 18:30 EDT 08/24/2017 18:51 EDT us Fausto Roberts MD LAB INFO SERVICE AND SUPPORT & PHONE RESULT Final Result Performing Organization Address [facility] Co de Phone Number [facility] [address] [place] [address] * HOLD GREEN TOP (08/24/2017 18:30 EDT) Hold Green Top Hold for further testing. Specimen will be held for 5 days. 08/24/2017 19:15 EDT [facility] Blood specimen (specimen) BLOOD SPECIMEN / Unknown 08/24/2017 18:30 EDT 08/24/2017 18:51 EDT us Fausto Roberts MD LAB INFO SERVICE AND SUPPORT & PHONE RESULT Final Result Performing Organization Address [facility] Co de Phone Number [facility] [address] [place] [address] * HOLD BLUE TOP (08/24/2017 18:30 EDT) Hold Blue Top Sample for coagulation will be discarded after 4 hours 08/24/2017 19:13 EDT [facility] Blood specimen (specimen) BLOOD SPECIMEN / Unknown 08/24/2017 18:30 EDT 08/24/2017 18:51 EDT us Fausto Roberts MD LAB INFO SERVICE AND SUPPORT & PHONE RESULT Final Result Performing Organization Address [facility] Co de Phone Number [facility] [address] [place] [address] * EKG 12-LEAD (08/24/2017 17:16 EDT) 08/24/2017 17:1 6 EDT Narrative [facility] EKG - 08/29/2017 15:13 EDT ?[facility] Emergency ? Test Date: ?2017-08-24 Pat Name: ? PHYLISS BOOTHE ?Department: ?? ED ? Room: ? AC14 Gender: ? F ?Electrical Technician: ?? [id number] : ?1960 ? Requested By: BABAR Irizarry Order Number: [id number] ? Reading MD: ?? FRIEDERIKE KING MD ? Measurements Intervals ?[place] ? Rate: ? 92 ? P: ?52 MO: ? 149 ?QRS: ?54 QRSD: ? 98 ? T: ?42 QT: ? 372 ? QTc: ?461 ? Interpretive Statements SINUS RHYTHM Compared to ECG 06/20/2017 19:29:25 No significant changes I reviewed the tracing and have either agreed or edited the findings in this report. Electronically Signed On 08-29-17 15:13:46 EDT by DENISSE MALIK MD. Procedure Note Denisse Malik MD - 08/29/2017 [facility] Emergency Test Date: 2017-08-24 Pat Name: TARA BOOTHE Department: ED Room: [facility] Gender: F Electrical Technician: [id number] : 1960 Requested By: BABAR Irizarry Order Number: [id number] Reading MD: DENISSE COSME Measurements Intervals [place] Rate: 92 P: 52 MO: 149 QRS: 54 QRSD: 98 T: 42 QT: 372 QTc: 461 Interpretive Statements SINUS RHYTHM Compared to ECG 06/20/2017 19:29:25 No significant changes I reviewed the tracing and have either agreed or edited the findings inthis report. Electronically Signed On 08-29-17 15:13:46 EDT by DANIEL PHIPPS. 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 Splenic vein thrombosis Other diseases of spleen Hematuria, gross Gross hematuria Pancytopenia (HCC-CMS) Other pancytopenia Hematuria, gross Gross hematuria documented in this encounter Administered Medications Inactive Administered Medications - up to 3 most recent administrations Medication Order MAR Action Action Date Dose Rate Site albuterol inhaler 2 Puff 2 Puff, inhalation, EVERY 4 HOURS, First dose on Kirsten 08/25/17 at 0000, Until Discontinued, Routine Given 08/25/2017 21:10 EDT 2 Puffs Given 08/25/2017 15:38 EDT 2 Puffs Given 08/25/2017 11:41 EDT 2 Puffs ALPRAZolam (XANAX) tablet 1 mg 1 mg, oral, 3 TIMES DAILY, First dose on Kirsten 08/25/17 at 0000, Until Discontinued, Routine Given 08/26/2017 9:11 EDT 1 mg Given 08/25/2017 21:11 EDT 1 mg Given 08/25/2017 13:27 EDT 1 mg diphenhydrAMINE (BENADRYL) capsule 25 mg 25 mg, oral, AT BEDTIME PRN, Starting on Tue08/25/17 at 1912, Until Tue08/26/17 at 1349, Itching, Sleep, Routine Given 08/25/2017 21:11 EDT 25 mg fluticasone (FLOVENT) 110 mcg/actuation inhaler 1 Puff 1 Puff, inhalation, 2 TIMES DAILY, First dose on Tue08/25/17 at 0000, Until Discontinued, Routine Given 08/26/2017 9:11 EDT 1 Puff Given 08/25/2017 21:15 EDT 1 Puff Given 08/25/2017 8:55 EDT 1 Puff heparin in 1/2 NS 25,000 unit/250 mL infusion 20 Units/kg/hr ? 70.5 kg Adjusted weight (14.1 mL/hr), intravenous, CONTINUOUS, Starting on Tue08/24/17 at 2230, Until Tue08/25/17 at 1510, STAT Rate Change 08/25/2017 7:07 EDT 20 Units/kg/hr 14.1 mL/hr Rate Documented 08/24/2017 23:53 EDT 18 Units/kg/hr 12.7 m L/hr New Bag 08/24/2017 22:50 EDT 18 Units/kg/hr 12.7 mL/hr HYDROmorphone (DILAUDID) 1 mg/mL injection 1 dose, Starting on Tue08/24/17 at 1923, Until Tue08/24/17 at 1947 HYDROmorphone (DILAUDID) injection 0.5 mg 0.5 mg, intravenous, NOW X1, 1 dose, On Tue08/24/17 at 2230, STAT Given 08/24/2017 22:46 EDT 0.5 mg HYDROmorphone (DILAUDID) injection 1 mg 1 mg, intravenous, NOW X1, 1 dose, On Tue08/24/17 at 1930, STAT Given 08/24/2017 19:47 EDT 1 mg levothyroxine (SYNTHROID) tablet 250 mcg 250 mcg, oral, DAILY, First dose on Tue08/25/17 at 0700, Until Discontinued Given 08/26/2017 6:00 EDT 250 mcg Given 08/25/2017 6:27 EDT 250 mcg lidocaine 5 % (LIDODERM) patch 1 Patch 1 Patch, transdermal, Administer over 12 Hours, DAILY, First dose on Tue08/25/17 at 0900, Until Discontinued, Routine Patch Applied 08/26/2017 9:11 EDT 1 Patch Back Patch Applied 08/25/2017 8:56 EDT 1 Patch Ba ck ondansetron (PF) (ZOFRAN) 4 mg/2 mL injection 1 dose, Starting on Tue08/24/17 at 1923, Until Tue08/24/17 at 1947 ondansetron (PF) (ZOFRAN) injection 4 mg 4 mg, intravenous, NOW X1, 1 dose, On Tue08/24/17 at 1930, STAT Given 08/24/2017 19:47 EDT 4 mg ondansetron (PF) (ZOFRAN) injection 4 mg 4 mg, intravenous, NOW X1, 1 dose, On Tue08/24/17 at 2230, STAT Given 08/24/2017 22:46 EDT 4 mg ondansetron (PF) (ZOFRAN) injection 4 mg 4 mg, intravenous, EVERY 4 HOURS PRN, Starting on Tue08/25/17 at 0125, Until Tue08/25/17 at 1155, Nausea, Routine Given 08/25/2017 10:34 EDT 4 mg Given 08/25/2017 6:22 EDT 4 mg ondansetron (PF) (ZOFRAN) injection 8 mg 8 mg, intravenous, EVERY 8 HOURS PRN, Starting on Tue08/25/17 at 2306, Until Tue08/26/17 at 1349, Nausea, Routine oxyCODONE (ROXICODONE) immediate release tablet 5 mg 5 mg, oral, NOW X1, 1 dose, On Tue08/25/17 at 0830, Routine Given 08/25/2017 8:57 EDT 5 mg pantoprazole (PROTONIX) tablet 40 mg 40 mg, oral, DAILY, First dose on Tue08/25/17 at 0900, Until Discontinued, Routine Given 08/26/2017 9:11 EDT 40 mg Given 08/25/2017 8:57 EDT 40 mg prochlorperazine (COMPAZINE) tablet 5 mg 5 mg, oral, EVERY 6 HOURS PRN, Starting on Tue08/25/17 at 1154, Until Tue08/25/17 at 2257, Nausea, Routine Given 08/25/2017 15:38 EDT 5 mg ramelteon (ROZEREM) tablet 8 mg 8 mg, oral, AT BEDTIME, First dose on Tue08/25/17 at 2100, Until Discontinued, Routine Given 08/25/2017 21:11 EDT 8 mg rifAXImin (XIFAXAN) tablet 550 mg 550 mg, oral, 2 TIMES DAILY, 14 doses, First dose on Tue08/25/17 at 0000, Last dose on Tue08/31/17 at 0900, Routine Given 08/26/2017 9:12 EDT 550 mg Given 08/25/2017 21:11 EDT 550 mg Given 08/25/2017 8:57 EDT 550 mg traMADol (ULTRAM) tablet 100 mg 100 mg, oral, NOW X1, 1 dose, On Tue08/25/17 at 0630, Routine Given 08/25/2017 6:21 EDT 100 mg traMADol (ULTRAM) tablet 50 mg 50 mg, oral, NOW X1, 1 dose, On Tue08/25/17 at 0145, Routine Given 08/25/2017 1:37 EDT 50 mg traMADol (ULTRAM) tablet 50 mg 50 mg, oral, Once (Without Time Specified), 1 dose, Starting on Tue08/25/17 at 1930, Until Tue08/25/17 at 2111, Routine Given 08/25/2017 21:11 EDT 50 mg documented in this encounter Active and Recently Administered Medications Times are shown in EDT. Scheduled Medication Order 08/24/2017 08/25/2017 08/26/2017 albuterol inhaler 2 Puff 2 Puff, inhalation, EVERY 4 HOURS, First dose on Tue08/25/17 at 0000, Until Discontinued, Routine 0048 (Not Given - Provider: Ebony Anderson RN - Reason: Patient/family refused)0406 (Not Given - Provider: Oni Gama RN - Reason: Patient/family refused)0854 (Given - Provider: Razia Garcia RN)1141 (Given - Provider: Razia Garcia RN)1538 (Given - Provider: Razia Garcia RN)2110 (Given - Provider: Tiny Lira RN) 0000 (Not Given - Provider: Tiny Lira RN - Reason: Patient/family refused)0529 (Not Given - Provider: Tiny Lira RN - Reason: Patient/family refused)0912 (Not Given - Provider: Ginny Haas RN - Reason: Patient/family refused) ALPRAZolam (XANAX) tablet 1 mg 1 mg, oral, 3 TIMES DAILY, First dose on Kirsten 08/25/17 at 0000, Until Discontinued, Routine 0049 (Given - Provider: Ebony Anderson RN)0857 (Given - Provider: Razia Garcia RN)1327 (Given - Provider: Cris Marquez, KENN)211 (Given - Provider: Tiny Lira, KENN) 0911 (Given - Provider: Ginny Haas, KENN) fluticasone (FLOVENT) 110 mcg/actuation inhaler 1 Puff 1 Puff, inhalation, 2 TIMES DAILY, First dose on Kirsten 08/25/17 at 0000, Until Discontinued, Routine 0048 (Not Given - Provider: Ebony Anderson RN - Reason: Patient/family refused)0855 (Given - Provider: Razia Garcia RN)2115 (Given - Provider: Tiny Lira, KENN) 0911 (Given - Provider: Ginny Haas, KENN) HYDROmorphone (DILAUDID) injection 0.5 mg (COMPLETED) 0.5 mg, intravenous, NOW X1, 1 dose, On Tue08/24/17 at 2230, STAT 2246 (Given - Provider: Tata Colón RN) HYDROmorphone (DILAUDID) injection 1 mg (COMPLETED) 1 mg, intravenous, NOW X1, 1 dose, On Tue08/24/17 at 1930, STAT 1947 (Given - Provider: Tata Colón RN) levothyroxine (SYNTHROID) tablet 250 mcg 250 mcg, oral, DAILY, First dose on Tue08/25/17 at 0700, Until Discontinued 06 (Given - Provider: Oni Gama RN) 0600 (Given - Provider: Tiny Lira, KENN) lidocaine 5 % (LIDODERM) patch 1 Patch 1 Patch, transdermal, Administer over 12 Hours, DAILY, First dose on Tue08/25/17 at 0900, Until Discontinued, Routine 855 (Patch Applied - Provider: Razia Garcia RN)2112 (Patch Removed - Provider: Tiny Lira RN) 910 (Patch Applied - Provider: Ginny Haas RN)2110 (Due: Patch Removed - Provider: Ginny Haas RN) ondansetron (PF) (ZOFRAN) injection 4 mg (COMPLETED) 4 mg, intravenous, NOW X1, 1 dose, On Tue08/24/17 at 1930, STAT 1947 (Given - Provider: Tata Colón RN) ondansetron (PF) (ZOFRAN) injection 4 mg (COMPLETED) 4 mg, intravenous, NOW X1, 1 dose, On Tue08/24/17 at 2230, STAT 2246 (Given - Provider: Tata Colón RN) oxyCODONE (ROXICODONE) immediate release tablet 5 mg (COMPLETED) 5 mg, oral, NOW X1, 1 dose, On Tue08/25/17 at 0830, Routine 08 (Given - Provider: Razia Garcia RN) pantoprazole (PROTONIX) tablet 40 mg 40 mg, oral, DAILY, First dose on Tue08/25/17 at 0900, Until Discontinued, Routine 856 (Given - Provider: Razia Garcia RN) 910 (Given - Provider: Ginny Haas RN) ramelteon (ROZEREM) tablet 8 mg 8 mg, oral, AT BEDTIME, First dose on Tue08/25/17 at 2100, Until Discontinued, Routine 2110 (Given - Provider: Tiny Lira RN) rifAXImin (XIFAXAN) tablet 550 mg 550 mg, oral, 2 TIMES DAILY, 14 doses, First dose on Tue08/25/17 at 0000, Last dose on Tue08/31/17 at 0900, Routine 0049 (Given - Provider: Ebony Anderson, RN)0857 (Given - Provider: Razia Garcia, RN)211 (Given - Provider: Tiny Lira, RN) 0912 (Given - Provider: Ginny Haas RN) traMADol (ULTRAM) tablet 100 mg (COMPLETED) 100 mg, oral, NOW X1, 1 dose, On Tue08/25/17 at 0630, Routine 0621 (Given - Provider: Inderjit Queen RN) traMADol (ULTRAM) tablet 50 mg (COMPLETED) 50 mg, oral, NOW X1, 1 dose, On Tue08/25/17 at 0145, Routine 0137 (Given - Provider: Oni Gama RN) traMADol (ULTRAM) tablet 50 mg (COMPLETED) 50 mg, oral, Once (Without Time Specified), 1 dose, Starting on Tue08/25/17 at 1930, Until Tue08/25/17 at 2111, Routine 2110 (Given - Provider: Tiny Lira, KENN) Continuous Medication Order 08/24/2017 08/25/2017 08/26/2017 heparin in 1/2 NS 25,000 unit/250 mL infusion (CANCELED) 20 Units/kg/hr ? 70.5 kg Adjusted weight (14.1 mL/hr), intravenous, CONTINUOUS, Starting on Tue08/24/17 at 2230, Until Tue08/25/17 at 1510, STAT 2250 (New Bag - Provider: Tata Colón, RN)2353 (Rate Documented - Provider: Inderjit Queen RN) 0707 (Rate Change - Provider: Razia Garcia, RN)1523 (Completed - Provider: Razia Garcia, KENN - Comment: med d/c) PRN Medication Order 08/24/2017 08/25/2017 08/26/2017 diphenhydrAMINE (BENADRYL) capsule 25 mg 25 mg, oral, AT BEDTIME PRN, Starting on Tue08/25/17 at 1912, Until Tue08/26/17 at 1349, Itching, Sleep, Routine 2111 (Given - Provider: Redd Lira, RN) ondansetron (PF) (ZOFRAN) injection 4 mg (CANCELED) 4 mg, intravenous, EVERY 4 HOURS PRN, Starting on Kirsten 08/25/17 at 0125, Until Kirsten 08/25/17 at 1155, Nausea, Routine 0622 (Given - Provider: Inderjit Queen, RN)1034 (Given - Provider: Razia Garcia, KENN) ondansetron (PF) (ZOFRAN) injection 8 mg 8 mg, intravenous, EVERY 8 HOURS PRN, Starting on Kirsten 08/25/17 at 2306, Until 08/26/17 at 1349, Nausea, Routine prochlorperazine (COMPAZINE) tablet 5 mg (CANCELED) 5 mg, oral, EVERY 6 HOURS PRN, Starting on Kirsten 08/25/17 at 1154, Until Kirsten 08/25/17 at 2257, Nausea, Routine 1538 (Given - Provider: Stefani Garcia RN) documented in this encounter Orders Medications Ordered That Luc ht Not Have Been Administered Count Last Ordered Date First Ordered Date ondansetron (PF) (ZOFRAN) injection 8 mg 2 08/25/2017 heparin 1,000 unit/mL injection 1 7 Diet Count Last Ordered Date First Orde red Date DISCHARGE DIET 1 08/26/2017 Nursing Count Last Ordered Date First Orde red Date ACTIVITY INSTRUCTIONS 1 08/26/2017 BATHING INSTRUCTIONS 1 08/26/2017 VTE PHARMACOLOGIC PROPHYLAXI S CURRENTLY ORDERED OR ON ALTERNATIVE THER 1 08/24/2017 IV Count Last Ordered Date First Orde red Date IV REQUEST 1 08/25/2017 Admission Count Last Ordered Date First Orde red Date ED BED REQUEST 1 08/24/2017 STATUS: INPATIENT ACUTE ADMISSION 1 017 Transfer Count Last Ordered Date First Orde red Date CHANGE ATTENDING TO: 1 08/25/2017 UR PATIENT STATUS CHANGE 1 08/25/2017 PPS NOTIFICATION OF PATIENT ARRIVAL ON UNIT 1 08/24/2017 Discharge Count Last Ordered Date First Orde red Date DISCHARGE PATIENT 1 08/26/2017 Legal Count Last Ordered Date First Orde red Date MISCELLANEOUS DISCHARGE INSTRUCTIONS 1 04/2017 documented in this encounter Care Teams Hair Dryer Relationship Specialty Start Date End Date None, Provider PCP - General 03/25/17 09/08/17 documented as of this encounter
--- OUTSIDE RECORDS SUMMARY | 2024-11-22 17:28 | XMS_ITS | Encounter Summary ---
Author Organization [facility] Address [address] [place] [address] Care Team Providers Care Burlap Spreader Name Role Phone None, Provider Primary Care Provider Unavailabl e Reason for Visit * Reason Comments Loss of Consciousness syncopal episode w ith loss of consciousness for approximately 3 minutes per EMS. Patient states her blood sugar was low earlier and she took some OJ and glucose tablets. Also states she has been out of town for the last few days and has had N/V and has been unable to keep anything down. C/O pain across chest, back and abdomin. Hx of low WBC and platelets Encounter Details Date Type Department Care Team (Late st Contact Info) Description 06/20/2017 19:07 EDT - 06/20/2017 21:40 EDT Emergency [facility] Emergency Department - Main [address] [address] Adrienne Dickens MD [address] [address], [address] [place] [address] Emergency, MD Rolando Vasovagal syncope (Primary Dx) Discharge Disposition: Home or Self [...] Reading Time Taken Comments Blood Pressure 136/84 06/20/20172138 EDT Pulse 65 06/20/20172138 EDT Temperature 36.9 ??C (98.5 ??F) 06/20/20171920 EDT Respiratory Rate 18 06/20/20172138 EDT Oxygen Saturation 98% 06/20/20172138 EDT Inhaled Oxygen Concentration - - Weight 129.3 kg (285 lb) 06/20/20171920 EDT Height 165.1 cm (5' 5) 06/20/20171920 EDT Body Mass Index 47.43 06/20/20171920 EDT documented in this encounter Functional Status [...] documented in this encounter Discharge Diagnoses Diagnosis R55 Syncope and collapse-R55[ICD-10-CM] J45.909 Unspecified asthma, uncomplicated-J45.909[ICD-10-CM] M06.9 Rheumatoid arthritis, unspecified-M06.9[ICD-10-CM] Z79.899 Other half-way (current) drug therapy-Z79.899[ICD-10-CM] Z90.49 Acquired absence of other specified parts of digestive tract-Z90.49[ICD-10-CM] Z88.6 Allergy status to analgesic agent status-Z88.6[ICD-10-CM] Z88.2 Allergy status to sulfonamides status-Z88.2[ICD-10-CM] Z88.5 Allergy status to narcotic agent status-Z88.5[ICD-10-CM] F17.200 Nicotine dependence, unspecified, uncomplicated-F17.200[ICD-10-CM] documented in this encounter Discharge Instructions * Discharge Instructions* Adrienne Dickens MD - 06/20/2017 21:31 EDT All labs and studies are unremarkable/at your baseline at this time except to do look mildly dehydrated. Plenty of clear, non-caffeinated fluids Zofran if needed for nausea This episode seems consistent with you are known vasovagal syncope. Take care with position changesand do not stand if you are feeling lightheaded at all. Return for repeat passing out or other concerning symptoms * Attachments The following attachments cannot be sent through Care Everywhere. * FAINTING (KHMER) documented in this encounter Medications at Time [...] or Self [facility] documented in this encounter ED Notes * Zoila Jennings RN - 06/20/20172138 EDT Discharged ambulatory from ER with verbalized understanding of instructions. Gait steady. * Zoila Jennings RN - 06/20/20172122 EDT Tolerating po fluids. Continues to sit on stretcher texting and talking on the phone. * Zoila Jennings RN - 06/20/20172105 EDT OOB ambulating to BR. No N/V noted. Taking po fluids. Gait steady. * Sony Doshi - 06/20/2017 195 EDT Blood drawn via saline lock per protocol, rainbow tube(s) sent to lab per order. * Adrienne Dickens MD - 06/20/2017 193 EDT DOS: 06/20/2017 Chief Complaint Patient presents with ??? Loss of Consciousness syncopal episode with loss of consciousness for approximately 3 minutes per EMS. Patient states herblood sugar was low earlier and she took some OJ and glucose tablets. Also states she has been out of town for the last few days and has had N/V and has been unable to keep anything down. C/O pain across chest, back and abdomin. Hx of low WBC and platelets HPI HPI Comments: I, Cherrie Wilson, am scribing for Adrienne Dickens MD while she is personally performing the service. Cherrie Hayjuliafidencio 06/20/2017 19:34 Tara Boothe is a 56 y.o. female with a history of vasovagal syncope, asthma, cirrhosis of liver, splenomegaly, neutropenia, hypoglycemia, c. difficile colitis, appendectomy, cholecystectomy, hysterectomy. She presents to the ED after a syncopal episode that was preceded by light-headedness, diaphoresis, and nausea. EMS report that the patient lost consciousness for approximately 3 minutes. The patient states that she vomited twice last night and has dry-heaved multiple times since then. Shereports that she just flew here from [place] but the onset of nausea occurred before she got on the plane. The patient's symptoms today felt similar to her previous episodes of vasovagal syncope. As sociated symptoms include back pain and epigastric pain which are worse than baseline. The patient has had multiple platelet transfusions as well as a bone marrow biopsy approximately 7 years ago. She currently smokes cigarettes and is hoping to quit in the near future. She denies alcohol or drug use. Patient denies diarrhea. Chart review: On 06/01/2017, the patient had a white count of 1.16, H&H of 10 and 31, and platelet count of 54. The history is provided by the patient, medical records and the EMS personnel. Review of Systems Review of Systems Constitutional: Positive for diaphoresis. Gastrointestinal: Positive for abdominal pain, nausea and vomiting. Negative for diarrhea. Musculoskeletal: Positive for back pain. Neurological: Positive for syncope and light-headedness. All other systems reviewed and are negative. [...] Sulfa (Sulfonamide Antibiotics) Rash Vital Signs Temp: 36.9 ??C (98.5 ??F) Temp src: Oral Pulse: 65 Heart Rate: 82 BPM Resp: 18 SpO2: 98 % BP: 136/84 BP MAP: 93 mm Hg Physical Exam Constitutional: She is oriented to person, place, and time. She appears well- developed and well-nourished. HENT: Head: Normocephalic and atraumatic. Eyes: Conjunctivae and EOM are normal. Pupils are equal, round, and reactive to light. Right eye exhibits no discharge. Left eye exhibits no discharge. Neck: Normal range of motion. Neck supple. No tracheal deviation present. Cardiovascular: Normal rate, regular rhythm and normal heart sounds. No murmur heard. Pulses: Carotid pulses are 2+ on the right side, and 2+ on the left side. Radial pulses are 2+ on the right side, and 2+ on the left side. Femoral pulses are 2+ on the right side, and 2+ on the left side. Popliteal pulses are 2+ on the right side, and 2+ on the left side. Dorsalis pedis pulses are 2+ on the right side, and 2+ on the left side. Posterior tibial pulses are 2+ on the right side, and 2+ on the left side. Pulmonary/Chest: Effort normal and breath sounds normal. No respiratory distress. Abdominal: Soft. Bowel sounds are normal. She exhibits no distension. There is no tenderness. Musculoskeletal: Normal range of motion. She exhibits no edema. Neurological: She is alert and oriented to person, place, and time. No cranial nerve deficit (CN II-XII grossly intact). Skin: Skin is warm and dry. No rash noted. Ecchymosis on the inner left arm, appears old. No ecchymosis on the back. Few petechia on the legs bilaterally. Psychiatric: She has a normal mood and affect. Nursing note and vitals reviewed. RESULTS EKG orders: EKG 12-LEAD The patient had an EKG which was independently reviewed and interpreted by me. Findings include sinus rhythm at a rate of 79 bpm with normal axis, normal R wave progression, no acute ST changes, and no signicant change from previous. Radiology orders: CT HEAD WO CONTRAST Patient had a CT head without contrast, which was significant for no acute intracranial hemorrhage,large territorial infarct, or mass lesion. Patient had CT that was obtained, reviewed, and interpreted by myself and discussed with a radiologist. Please see radiology report for further details. ED Lab Results Lab Results URINALYSIS AND MICROSCOPIC (Final result) Abnormal Component (Lab Inquiry) Collection Time Result Time Color, UA CLARITY U GLUCOSE U BILIRUBIN, UR KETONES 06/20/17 20:49:00 06/20/17 21:18:31 Red Cloudy Neg Neg Neg Collection Time Result Time Specific Beals, Urine BLOOD U PH, UR Protein, UA Urobilinogen, UA 06/20/17 20:49:00 06/20/17 21:18:31 1.020 (!) 3+ (A) 6.0 (!) 1+ (A) 1.0 Collection Time Result Time NITRITE LEUK mariola, UR WBC U RBC, UA Squam Epithel, UA 06/20/17 20:49:00 06/20/17 21:18:31 Neg Neg less than 1 >50 (!) Frequent (A) Collection Time Result Time Renal Epithel, UA BACTERIA Crystals, UA Casts, UA UA Comment 06/20/17 20:49:00 06/20/17 21:18:31 None seen None seen None seen None seen Microscopic results are unreliable on urines unrefrig >2hrs or refrig >8hrs. DRUG SCREEN 11, URINE (Final result) Component (Lab Inquiry) Collection Time Result Time Amphetamine Screen Barbituate Screen Bezodiazepine Scrn Cannabinoids Screen Methadone Screen 06/20/17 19:52:00 06/20/17 21:15:52 Negative screen. Confirmation testing available upon request. New methodology in use 03/30/17. Suitable for medical purposes only. Will not detect all drugs within class. Cutoff = 500 ng/ml Specimen type is urine. Negative screen. Confirmation testing available upon request. New methodology in use 03/30/17. Suitable for medical purposes only. Will not detect all drugs within class. Cutoff = 200 ng/ml Specimen type is urine. Presumptive positive, interpret with caution. Confirmation testing available upon request. New methodology in use 03/30/17. Suitable for medical purposes only. Will not detect all drugs within class. Cutoff = 150 ng/ml Specimen type is urine. Negative screen. Confirmation testing available upon request. New methodology in use 03/30/17. Suitable for medical purposes only. Will not detect all drugs within class. Cutoff = 50 ng/ml Specimen type is urine. Negative screen. Confirmation testing available upon request. New methodology in use 03/30/17. Suitable for medical purposes only. Will not detect all drugs within class. Cutoff = 200 ng/ml Specimen type is urine. Collection Time Result Time Opiates Screen Oxycodone Screen Cocaine Metabolites Buprenorph and Metab Methamphetamine Scrn 06/20/17 19:52:00 06/20/17 21:15:52 Presumptive positive, interpret with caution. Confirmation testing available upon request. New methodology in use 03/30/17. Suitable for medical purposes only. Will not detect all drugs within class. Cutoff = 100 ng/ml Specimen type is urine. Negative screen. Confirmation testing available upon request. New methodology in use 03/30/17. Suitable for medical purposes only. Will not detect all drugs within class. Cutoff = 100 ng/ml Specimen type is urine. Negative screen. Confirmation testing available upon request. New methodology in use 03/30/17. Suitable for medical purposes only. Will not detect all drugs within class. Cutoff = 150 ng/ml Specimen type is urine. Negative screen. Confirmation testing available upon request. New methodology in use 03/30/17. Suitable for medical purposes only. Will not detect all drugs within class. Cutoff = 10 ng/ml Specimen type is urine. Negative screen. Confirmation testing available upon request. New methodology in use 03/30/17. Suitable for medical purposes only. Will not detect all drugs within class. Cutoff = 500 ng/ml Specimen type is urine. Collection Time Result Time Propoxyphene Screen 06/20/17 19:52:00 06/20/17 21:15:52 Negative screen. Confirmation testing available upon request. New methodology in use 03/30/17. Suitable for medical purposes only. Will not detect all drugs within class. Cutoff = 300 ng/ml Specimen type is urine. PROFILE ED CARDIAC PACK (Final result) Abnormal Component (Lab Inquiry) Collection Time Result Time Sodium Potassium Chloride CO2 BUN 06/20/17 19:51:00 06/20/17 20:28:34 143 3.8 107 25 12 Collection Time Result Time Creatinine GFR, Calculated Magnesium WBC RBC 06/20/17 19:51:00 06/20/17 20:28:34 0.77 87 eGFR calculated using CKD-EPI equation for non Americans. Multiply eGFR by 1.16 for Americans. 1.9 (!) 1.14 (L) 3.97 Collection Time Result Time Hemoglobin HCT MCV MCH MCHC 06/20/17 19:51:00 06/20/17 20:28:34 (!) 11.2 (L) (!) 33.9 (L) 85 28.2 33.0 Collection Time Result Time RDW-CV RDW-SD PLT MPV Neutrophils 06/20/17 19:51:00 06/20/17 20:28:34 (!) 15.0 (H) 46.8 (!) 44 (L) 9.6 72.0 Collection Time Result Time Lymphocytes Monocytes Eosinophils ABS Neutrophils ABS Lymphs 06/20/17 19:51:00 06/20/17 20:28:34 18.0 9.0 1.0 (!) 0.82 (L) (!) 0.21 (L) Collection Time Result Time ABS Monocytes ABS Eosinophils Type of Diff: Troponin I Glucose, Screening 06/20/17 19:51:00 06/20/17 20:28:34 0.10 (!) 0.01 (L) Manual <0.034 89 Collection Time Result Time Hold Blue Top 06/20/17 19:51:00 06/20/17 20:28:34 Sample for coagulation will be discarded after 4 hours LIPASE (Final result) Component (Lab Inquiry) Collection Time Result Time LIPASE 06/20/17 19:51:00 06/20/17 20:16:02 67 HEPATIC FUNCTION PANEL (ALB,ALK PHOS,ALT,AST,DBIL,TOT LUIS,TOT PROT) (Final result) Component (Lab Inquiry) Collection Time Result Time Albumin Total Protein Total Alkaline Phosphatase ALT AST 06/20/17 19:51:00 06/20/17 20:16:02 3.8 6.5 95 23 17 Collection Time Result Time Unconjugated Bilirubin Conjugated Bilirubin Bilirubin, Total 06/20/17 19:51:00 06/20/17 20:16:02 0.3 0.0 <0.5 GLUCOSE, GLUCOMETER (Final result) Component (Lab Inquiry) Collection Time Result Time Glucose, Fingerstick Collection Teller ID 06/20/17 19:33:00 06/20/17 19:34:00 [id number] Test Performed by Nursing Services Relevant Data Procedures ED COURSE A medical screening exam was performed. The patient is a 56 y.o. female who presents to the ED with after she a syncopal episode that was preceded by light-headedness, diaphoresis, and nausea. EMS report that the patient lost consciousness/was slow to come around for approximately 3 minutes. Multiple requests for pain medication. At this time, looks well. Advised we will hold on narcotics given that this seems to be her chronic pain (same but worse) and not a new pain. Will reassess ifwe find a new abnormality. EKG showed sinus rhythm at a rate of 79 bpm with normal axis, normal R wave progression, no acute ST changes, and no signicant change from previous. Patient had labs that were reviewed independently by myself, significant for blood in her urine, neutropenia (not new), mild anemia, thrombocytopenia (not new). LFTs ok. + Opiates in her urine, says she hasn???t had pain meds for months CT head showed no acute intracranial hemorrhage, large territorial infarct, or mass lesion. Although she had recent plane travel, sxs seem more c/w her previously documented vasovagal syncope. Doubt PE. On reevaluation at 21:23, I discussed the lab results with the patient who was appropriate for discharge home. Ambulatory to the BR without difficulty and tolerating PO. Sxs to monitor and return for given to the patient, who is comfortable with the plan. ASSESSMENT AND PLAN Final diagnoses: Vasovagal syncope DISPOSITION: Discharged The patient's pain was managed [...] Emergency Department: Improved PCP: Provider None MDM This documentation is recorded by Cherrie Wilson acting as Scribe under the direction and presence of Dr. Dickens. I, Adrienne Dickens MD, have utilized a scribe to help in the preparation of this note. I have reviewed and agree with the scribe's note and I have made modifications as necessary. 06/22/2017 7:26 No flowsheet data found. * Zoila Jennings RN - 06/20/2017 1921 EDT Chief Complaint Patient presents with ??? Loss of Consciousness syncopal episode with loss of consciousness for approximately 3 minutes per EMS. Patient states herblood sugar was low earlier and she took some OJ and glucose tablets. Also states she has been out of town for the last few days and has had N/V and has been unable to keep anything down. C/O pain across chest, back and abdomin. Hx of low WBC and platelets documented in this encounter Plan of Treatment Upcoming Encounters Date Type Department Care Team (Late st Contact Info) Description 01/04/2025 13:00 EST Office Visit [facility] Ophthalmology - [address] [id number] Gagandeep Rome MD [address] [address], [facility] [address] [place] [address] 02/11/2025 13:30 EDT Telemedicine [facility] [place] [facility] - [address] [id number] Dana Padilla MD [address] [place] [address], [facility] [address] [place] [phone] documented as of this encounter Procedures Procedure Name Priority Date/Time Associated Diagnosis Comments ECG REPORT - SCANNED 06/28/2017 9:22 EDT URINE CHEMICAL (DIP) & SEDIMENT (MICRO) WITHOUT REFLEX TO CULTURE Routine 06/20/2017 20:[address] HEAD WO CONTRAST STAT 06/20/2017 2 0:17 EDT DRUG SCREEN 11, URINE Routine 06/20/2017 19:52 EDT PROFILE ED CARDIAC PACK STAT 06/20/2017 19:51 EDT LIPASE Routine 06/20/2017 19:51 EDT HEPATIC FUNCTION PANEL (ALB,ALK PHOS,ALT,AST,DBIL,TO T LUIS,TOT PROT) Routine 06/20/2017 19:51 EDT GLUCOSE, GLUCOMETER Routine 06/20/2017 1 9:33 EDT EKG 12-LEAD STAT 06/20/2017 19:29 EDT documented in this encounter Results * ECG REPORT - SCANNED (06/28/2017 9:22 EDT) 06/28/2017 9:22 EDT us Scan 2 Manager Production PROCEDURE/MINOR SURGICAL OR DERABLES Final Result * (ABNORMAL) URINALYSIS AND MICROSCOPIC (06/20/2017 20:49 EDT) Color, UA Red 06/20/2017 21:18 [facility] Clarity, UA Cloudy 06/20/2017 21:18 [facility] Glucose, UA Neg Neg 06/20/2017 21:18 [facility] Bilirubin, UA Neg Neg 06/20/2017 21:18 [facility] Ketones, UA Neg Neg 06/20/2017 21:18 [facility] Specific Beals, Urine 1.020 1.001 - 1.035 06/20/2017 21:18 [facility] Blood, UA 3+(A) Neg 06/20/2017 21:18 [facility] pH, UA 6.0 4.6 - 8.0 06/20/2017 21:18 [facility] Protein, UA 1+(A) Neg 06/20/2017 21:18 [facility] Urobilinogen, UA 1.0 0.2 - 1.0 E.U./dl 06/20/2017 21:18 [facility] Nitrite, UA Neg Neg 06/20/2017 21:18 EDT [facility] Leuk Esterase Neg Neg 06/20/2017 21:18 T [facility] WBC, UA less than 1 0 - 5 /HPF 06/20/2017 21:18 [facility] RBC, UA >50 0 - 5 /HPF 06/20/2017 21:18 [facility] Squam Epithel, UA Frequent(A) None seen /HPF 06/20/2017 21:18 EDT [facility] Renal Epithel, UA None seen None seen /HPF 06/20/2017 21:18 T [facility] Bacteria, UA None seen None seen /HPF 06/20/2017 21:18 [facility] Crystals, UA None seen /HPF 06/20/2017 21:18 [facility] Hyaline Casts, UA None seen /LPF 06/20/2017 21:18 [facility] UA Comment Microscopic results 06/20/2017 20:48 T [facility] Comment: are unreliable on urines unrefrig >2hrs or refrig >8hrs. Urine specimen (specimen) URINE / Unknown 06/20/2017 20:49 EDT 06/20/2017 20:58 EDT us Adrienne Dickens MD URINALYSIS ORDERABLES F inal Result [facility] [address] [place] [address] * CT HEAD WO CONTRAST (06/20/2017 20:17 EDT) Anatomical Region Laterality Modality Other 06/20/2017 20:1 7 EDT 06/21/2017 19:44 EDT Narrative 06/21/2017 19:[address] HEAD WO CONTRAST ??06/20/2017 8:17 PM Clinical History/Comments: Syncope, hit head, low platelets. Comparison: February 01, 2017. Technique: Axial noncontrast CT images of the head were obtained with coronal and sagittal reformations. Findings: No fracture is identified. Cerebral cortical volume loss is slightly age advanced. The ventricles are normal in caliber. There is no midline shift. The basilar cisterns are patent. The cerebellar tonsils are in normal position. No intracranial hemorrhage, abnormal extra-axial fluid collection or space-occupying lesion is identified. Queen-white matter differentiation is preserved. No paranasal sinus air-fluid levels are demonstrated. The mastoid air cells and middle ear cavities are clear. No orbital abnormality is noted. Impression: 1. No fracture or intracranial hemorrhage identified. 2. Slightly age advanced cerebral cortical volume loss. Procedure Note Sowmya Pereyra MD - 06/21/2017 CT HEAD WO CONTRAST 06/20/2017 8:17 PM Clinical History/Comments: Syncope, hit head, low platelets. Comparison: February 01, 2017. Technique: Axial noncontrast CT images of the head were obtained with coronal and sagittal reformations. Findings: No fracture is identified. Cerebral cortical volume loss is slightly age advanced. The ventricles are normal in caliber. There is no midline shift. The basilar cisterns are patent. The cerebellar tonsils are in normal position. No intracranial hemorrhage, abnormal extra-axial fluid collection or space-occupying lesion is identified. Queen-white matter differentiation is preserved. No paranasal sinus air-fluid levels are demonstrated. The mastoid air cells and middle ear cavities are clear. No orbital abnormality is noted. Impression: 1. No fracture or intracranial hemorrhage identified. 2. Slightly age advanced cerebral cortical volume loss. us Adrienne Dickens MD IM CT ORDERABLES Final Result * DRUG SCREEN 11, URINE (06/20/2017 19:52 EDT) Amphetamine Screen Negative screen. 06/20/2017 21:15 EDT [facility] Comment: Confirmation testing available upon request. New methodology in use 03/30/17. Suitable for medical purposes only. Will not detect all drugs within class. Cutoff = 500 ng/ml Specimen type is urine. Barbituate Screen Negative screen. 06/20/2017 21:15 EDT [facility] Comment: Confirmation testing available upon request. New methodology in use 03/30/17. Suitable for medical purposes only. Will not detect all drugs within class. Cutoff = 200 ng/ml Specimen type is urine. Benzodiazepine Scrn Presumptive positive, interpret with caution. 06/20/2017 21:15 [facility] Comment: Confirmation testing available upon request. New methodology in use 03/30/17. Suitable for medical purposes only. Will not detect all drugs within class. Cutoff = 150 ng/ml Specimen type is urine. Cannabinoids Screen Negative screen. 06/20/2017 21:15 [facility] Comment: Confirmation testing available upon request. New methodology in use 03/30/17. Suitable for medical purposes only. Will not detect all drugs within class. Cutoff = 50 ng/ml Specimen type is urine. Methadone Screen Negative screen. 06/20/2017 21:15 [facility] Comment: Confirmation testing available upon request. New methodology in use 03/30/17. Suitable for medical purposes only. Will not detect all drugs within class. Cutoff = 200 ng/ml Specimen type is urine. Opiates Screen Presumptive positive, interpret with caution. 06/20/2017 21:15 [facility] Comment: Confirmation testing available upon request. New methodology in use 03/30/17. Suitable for medical purposes only. Will not detect all drugs within class. Cutoff = 100 ng/ml Specimen type is urine. Oxycodone Screen Negative screen. 06/20/2017 21:15 [facility] Comment: Confirmation testing available upon request. New methodology in use 03/30/17. Suitable for medical purposes only. Will not detect all drugs within class. Cutoff = 100 ng/ml Specimen type is urine. Cocaine Metabolites Negative screen. 06/20/2017 21:15 [facility] Comment: Confirmation testing available upon request. New methodology in use 03/30/17. Suitable for medical purposes only. Will not detect all drugs within class. Cutoff = 150 ng/ml Specimen type is urine. Buprenorph and Metab Negative screen. 06/20/2017 21:15 [facility] Comment: Confirmation testing available upon request. New methodology in use 03/30/17. Suitable for medical purposes only. Will not detect all drugs within class. Cutoff = 10 ng/ml Specimen type is urine. Methamphetamine Scrn Negative screen. 06/20/2017 21:15 [facility] Comment: Confirmation testing available upon request. New methodology in use 03/30/17. Suitable for medical purposes only. Will not detect all drugs within class. Cutoff = 500 ng/ml Specimen type is urine. Propoxyphene Screen Negative screen. 06/20/2017 21:15 [facility] Comment: Confirmation testing available upon request. New methodology in use 03/30/17. Suitable for medical purposes only. Will not detect all drugs within class. Cutoff = 300 ng/ml Specimen type is urine. Urine specimen (specimen) URINE / Unknown 06/20/2017 19:52 EDT 06/20/2017 20:58 EDT us Adrienne Dickens MD GEN LAB UNIT COLLECT OR DERABLES Final Result [facility] [address] [place] [address] * HEPATIC FUNCTION PANEL (ALB,ALK PHOS,ALT,AST,DBIL,TOT LUIS,TOT PROT) (06/20/2017 19:51 EDT) Albumin 3.8 3.4 - 4.9 g/dl 06/20/2017 20:16 [facility] Total Protein 6.5 6.3 - 8.2 g/dl 06/20/2017 20:16 [facility] Total Alkaline Phosphatase 95 38 - 126 U/L 06/20/2017 20:16 [facility] ALT 23 <53 U/L 06/20/2017 20:16 [facility] AST 17 15 - 46 U/L 06/20/2017 20:16 [facility] Unconjugated Bilirubin 0.3 0.0 - 1.1 mg/dl 06/20/2017 20:16 [facility] Conjugated Bilirubin 0.0 0.0 - 0.3 mg/dl 06/20/2017 20:16 [facility] Bilirubin, Total <0.5 <1.4 mg/dl 06/20/20 17 20:16 [facility] BLOOD SPECIMEN / Unknown 06/20/2017 19:51 EDT 06/20/2017 19:58 EDT us Adrienne Dickens MD CHEMISTRY & BLOOD GAS O RDERABLES Final Result [facility] [address] [place] [address] * LIPASE (06/20/2017 19:51 EDT) Lipase 67 <251 U/L 06/20/2017 20:16 [facility] BLOOD SPECIMEN / Unknown 06/20/2017 19:51 EDT 06/20/2017 19:58 EDT Adrienne Dickens MD CHEMISTRY & BLOOD GAS O RDERABLES Final Result Performing Organization Address [facility] Co de Phone Number [facility] [address] [place] [address] * (ABNORMAL) PROFILE ED CARDIAC PACK (06/20/2017 19:51 EDT) Sodium 143 136 - 145 mEq/L 06/20/2017 20:16 [facility] Potassium 3.8 3.5 - 5.0 mEq/L 06/20/2017 20:16 [facility] Chloride 107 96 - 110 mEq/L 06/20/2017 20:16 [facility] CO2 25 22 - 32 mEq/L 06/20/2017 20:16 [facility] BUN 12 10 - 26 mg/dl 06/20/2017 20:16 [facility] Creatinine 0.77 0.52 - 1.04 mg/dl 06/20/2017 20:16 [facility] GFR, Calculated 87 >60 ml/min/1 .73m2 06/20/2017 20:16 [facility] Comment: eGFR calculated using CKD-EPI equation for non Americans. Multiply eGFR by 1.16 for Americans. Magnesium 1.9 1.7 - 2.8 mg/dl 06/20/2017 20:16 [facility] WBC 1.14(L) 4.0 - 12.4 K/cmm 06/20/2017 20:03 [facility] RBC 3.97 3.86 - 5.04 M/cmm 06/20/2017 20:03 [facility] Hemoglobin 11.2(L) 11.6 - 15.2 gm/dl 06/20/2017 20:03 [facility] HCT 33.9(L) 34.9 - 44.4 % 06/20/2017 20:03 [facility] MCV 85 81 - 98 fl 06/20/2017 20:03 [facility] MCH 28.2 26.7 - 33.3 pg 06/20/2017 20:03 [facility] MCHC 33.0 32.1 - 35.9 gm/dl 06/20/2017 20:03 [facility] RDW-CV 15.0(H) <14.7 % 06/20/2017 20:03 [facility] RDW-SD 46.8 <50.4 fl 06/20/2017 20:03 [facility] PLT 44(L) 141 - 377 K/cmm 06/20/2017 20:03 [facility] MPV 9.6 9.5 - 12.7 fl 06/20/2017 20:03 [facility] Neutrophils 72.0 % 06/20/2017 20:28 [facility] Lymphocytes 18.0 % 06/20/2017 20:28 [facility] Monocytes 9.0 % 06/20/2017 20:28 [facility] Eosinophils 1.0 % 06/20/2017 20:28 [facility] ABS Neutrophils 0.82(L) 2.20 - 8.85 K/cmm 06/20/2017 20:28 [facility] ABS Lymphs 0.21(L) 1.09 - 3.30 K/cmm 06/20/2017 20:28 [facility] ABS Monocytes 0.10 0.1 - 0.8 K/cmm 06/20/2017 20:28 [facility] ABS Eosinophils 0.01(L) 0.03 - 0.61 K/cmm 06/20/2017 20:28 EDT [facility] Type of Diff: Manual 06/20/2017 20:28 EDT [facility] Troponin I (ng/mL) <0.034 <0.034 ng/ml 06/20/2017 20:27 EDT [facility] Glucose, Screening 89 70 - 100 mg/dl 06/20/2017 20:16 EDT [facility] Hold Blue Top Sample for coagulation will be discarded after 4 hours 06/20/2017 20:05 EDT [facility] Blood specimen (specimen) BLOOD SPECIMEN / Unknown 06/20/2017 19:51 EDT 06/20/2017 19:58 EDT Adrienne Dickens MD PACKAGES & DNA PROBE OR DERABLES Final Result Performing Organization Address [facility] Co de Phone Number [facility] [address] [place] [address] * GLUCOSE, GLUCOMETER (06/20/2017 19:33 EDT) Glucose, Fingerstick 83 70 - 100 mg/dl 06/20/2017 19:33 EDT [facility] Collection Teller ID [id number] 06/20/2017 19:33 EDT [facility] Comment:Test Performed by [facility] BLOOD SPECIMEN / Unknown 06/20/2017 19:33 EDT 06/20/2017 19:34 EDT us Provider Unknown CHEMISTRY & BLOOD GAS ORDERA BLES Final Result Performing Organization Address [facility] Co de Phone Number [facility] [address] [place] [address] * EKG 12-LEAD (06/20/2017 19:29 EDT) 06/20/2017 19:2 9 EDT Narrative [facility] - 06/24/2017 18:17 EDT ?[facility] ? Test Date: ?2017-06-20 Pat Name: ? PHYLISS BOOTHE ?Department: ?? ED ? Room: ? AC04 Gender: ? 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 Requested By: JUANCARLOS PARNELL B Order Number: [id number] ? Reading MD: ?? SHERIF LOBEL MD ? Measurements Intervals ?[place] ? Rate: ? 79 ? P: ?58 IA: ? 146 ?QRS: ?60 QRSD: ? 94 ? T: ?38 QT: ? 367 ? QTc: ?422 ? Interpretive Statements SINUS RHYTHM Compared to ECG 05/04/2017 13:44:23 No significant changes I have reviewed the tracing and have either agreed or edited the findings in this report. Edited by FRANCK MOY MD on 06-23-17 00:10:56 EDT. I reviewed the tracing and have either agreed or edited the findings in this report. Electronically Signed On 06-24-17 18:17:11 EDT by SHERIF DANIEL MD. 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 Edited by FRANCK MOY MD on 06-23-17 00:10:56 EDT. I reviewed the tracing and have either agreed or edited the findings inthis report. Electronically Signed On 06-24-17 18:17:11 EDT by SHERIF SNELL. us Adrienne Dickens MD CARDIAC ECG ORDERABLES Final Result [facility] documented in this encounter Visit Diagnoses Diagnosis Vasovagal syncope- Primary Syncope and collapse documented in this encounter Administered Medications Inactive Administered Medications - up to 3 most recent administrations Medication Order MAR Action Action Date Dose Rate Site acetaminophen (TYLENOL) 325 mg tablet 1 dose, Starting on Tue06/20/17 at 4, Until Tue06/20/17 at 2056 acetaminophen (TYLENOL) tablet 650 mg 650 mg, oral, NOW X1, 1 dose, On Tue06/20/17 at 2100, STAT Given 06/20/2017 20:57 EDT 650 mg ondansetron (PF) (ZOFRAN) injection 4 mg 4 mg, intravenous, NOW X1, 1 dose, On Tue06/20/17 at 1945, STAT Given 06/20/2017 19:58 EDT 4 mg ondansetron 4 mg ODT tab STARTER PACK 1 Package, oral, NOW X1, 1 dose, On Tue06/20/17 at 2130, STAT Given 06/20/2017 21:38 EDT 1 Package sodium chloride 0.9 % BOLUS 1,000 mL 1,000 mL, intravenous, Once (Without Time Specified), 1 dose, Starting on Tue06/20/17 at 1935, Until Tue06/20/17 at 4, STAT New Bag 06/20/2017 19:58 EDT 1,000 mL documented in this encounter Active and Recently Administered Medications Times are shown in EDT. Scheduled Medication Order 06/18/2017 06/19/2017 06/20/2017 acetaminophen (TYLENOL) tablet 650 mg (COMPLETED) 650 mg, oral, NOW X1, 1 dose, On Tue06/20/17 at 2100, STAT 2056 (Given - Provid er: Zoila Jennings RN) ondansetron (PF) (ZOFRAN) injection 4 mg (COMPLETED) 4 mg, intravenous, NOW X1, 1 dose, On Tue06/20/17 at 1945, STAT 1958 (Given - Provid er: Zoila Jennings RN) ondansetron (PF) (ZOFRAN) injection 4 mg 4 mg, intravenous, NOW X1, 1 dose, On Tue06/20/17 at 1945, STAT 2057 (Not Given - Pr ovider: Zoila Jennings RN - Reason: Other - Comment: see other order) ondansetron 4 mg ODT tab STARTER PACK (COMPLETED) 1 Package, oral, NOW X1, 1 dose, On Tue06/20/17 at 2130, STAT 2137 (Given - Provid er: Zoila Jennings, KENN) sodium chloride 0.9 % BOLUS 1,000 mL (COMPLETED) 1,000 mL, intravenous, Once (Without Time Specified), 1 dose, Starting on Tue06/20/17 at 1935, Until Tue06/20/17 at 2124, STAT 1957 (New Bag - Prov ider: Sony Doshi)2123 (Completed - Provider: Zoila Jennings, KENN) documented in this encounter Orders Medications Ordered That Luc ht Not Have Been Administered Count Last Ordered Date First Ordered Date ondansetron (PF) (ZOFRAN) injection 4 mg 2 06/20/2017 sodium chloride 0.9 % BOLUS 1,000 mL 1 05/23 Lab Orders Without Results Count Last Ordered D ate First Ordered Date POCT GLUCOSE 1 06/20/2017 POCT URINE DIPSTICK 1 06/20/2017 Nursing Count Last Ordered Date First Orde red Date INSERT PERIPHERAL IV 1 06/20/2017 documented in this encounter Care Teams [employer]url[employer] Spreader Relationship Specialty Start Date End Date None, Provider PCP - General 03/25/17 09/08/17 documented as of this encounter
--- OUTSIDE RECORDS SUMMARY | 2024-11-22 17:28 | XMS_ITS | Encounter Summary ---
Author Organization [facility] Address [address] [place] [id number] Care Team Providers Care Accounts Receivable Assistant Name Role Phone None, Provider Primary Care Provider Unavailabl e Reason for Visit * Reason Comments Hematuria N/V x2d, bilious francia sis x4 today, LUQ pain, chilled. Reports BRB in urine starting today. H/o low plts, WBCs. Appt w/ heme onc in [place] this month. Abdominal Pain Encounter Details Date Type Department Care Team (Late st Contact Info) Description 06/01/2017 0:26 EDT - 06/01/2017 5:33 EDT Emergency [facility] Emergency Department - [address] [address] Heike Plummer PA-C [address] [place] [address], [address] [place] [address] Emergency, MD Rolando Hematuria (Primary Dx); Left upper quadrant pain Discharge Disposition: Home or Self Care [...] Sign Reading Time Taken Comments Blood Pressure 113/69 06/01/2017527 EDT Pulse 97 06/01/2017527 EDT Temperature 35.9 ??C (96.7 ??F) 06/01/2017527 EDT Respiratory Rate 16 06/01/2017527 EDT Oxygen Saturation 97% 06/01/2017527 EDT Inhaled Oxygen Concentration - - Weight 86.2 kg (190 lb) 06/01/201740 EDT Height 165.1 cm (5' 5) 06/01/201740 EDT Body Mass Index 31.62 06/01/201740 EDT documented in this encounter Functional Status [...] documented in this encounter Discharge Diagnoses Diagnosis R10.12 Left upper quadrant pain-R10.12[ICD-10-CM] R31.9 Hematuria, unspecified-R31.9[ICD-10-CM] R80.9 Proteinuria, unspecified-R80.9[ICD-10-CM] R82.4 Acetonuria-R82.4[ICD-10-CM] R11.0 Nausea-R11.0[ICD-10-CM] J45.909 Unspecified asthma, uncomplicated-J45.909[ICD-10-CM] F17.200 Nicotine dependence, unspecified, uncomplicated-F17.200[ICD-10-CM] K76.9 Liver disease, unspecified-K76.9[ICD-10-CM] Z87.442 Personal history of urinary calculi-Z87.442[ICD-10-CM] Z88.5 Allergy status to narcotic agent status-Z88.5[ICD-10-CM] documented in this encounter Discharge Instructions * Discharge Instructions* Heike Plummer PA - 06/01/2017 5:04 EDT Zofran for nausea 1 tab every 8 hours Return for pain, vomiting, fever Follow up with your primary care this week Start with clear liquids and then advance diet slowly * Attachments The following attachments cannot be sent through Care Everywhere. * HEMATURIA ([place]) * ABDOMINAL PAIN ([place]) documented in this encounter Medications at Time [...] documented in this encounter ED Notes * Justina Ponce RN - 06/01/2017 0531 EDT Patient given discharge instructions. * Anastasia Trent RN - 06/01/2017 0143 EDT Blood drawn via saline lock per protocol, tiger and purple tube(s) sent to lab per order. * Heike Plummer PA - 06/01/2017 0104 EDT DOS: 06/01/2017 Chief Complaint Patient presents with ??? Hematuria N/V x2d, bilious emesis x4 today, LUQ pain, chilled. Reports BRB in urine starting today. H/o low plts, WBCs. Appt w/ heme onc in [place] this month. ??? Abdominal Pain HPI HPI Comments: I, Roberta Almaraz, am scribing for Heike Plummer PA while he/she is personally performing the service. Roberta Almaraz 06/01/2017 1:05 Tara Yun is a 56 y.o. female with a history of pancytopenia, liver disease, kidney stones, splenomegaly, C. difficile colitis, neutropenia, pyelonephritis, hypoglycemia, and drug-seeking behavior, s/p appendectomy and cholecystectomy presenting with hematuria and abdominal pain for the past s everal days. 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 She states that shefelt warm and endorses chills. She endorses CP but states that this is normal at baseline and was told by her specialist at [facility] that it is due to her splenomegaly. She endorses dysuria but denies frequency, and states that her urine was previously dark in color but is now red. She states thather spleen has felt enlarged from baseline for the past few days. She reports that she took tylenolat 18:00 with no improvement in her symptoms. She reports that she has a cardiac monitor technician and oncologist in [place] for her splenomegaly and that her next appointment is July 15 with hematology. She states she cannot have aspirin because her platelets are in the 50s. She is a current every day smoker (0.5 ppd, 10 pack years) and does not currently drink ETOH. The history is provided by the patient, medical records and the EMS personnel. Review of Systems Review of Systems Constitutional: Positive for chills and fever. Cardiovascular: Positive for chest pain (Normal at baseline). Gastrointestinal: Positive for nausea and vomiting. Genitourinary: Positive for dysuria and hematuria. Negative for frequency. All other [...] Rash Vital Signs Vitals Reassessment?: Yes Temp: 35.9 ??C (96.7 ??F) Temp src: Oral Pulse: 97 Heart Rate: 87 BPM Resp: 16 SpO2: 97 % BP: 113/69 BP MAP: 66 mm Hg BP Device: BP Machine Patient Position: Semi fowlers BP Cuff Location: Left arm O2 Device: None (Room air) Physical Exam Constitutional: She is oriented to person, place, and time. She appears well- developed and well-nourished. HENT: Head: Normocephalic and atraumatic. Mouth/Throat: Mucous membranes are dry. Eyes: Conjunctivae are normal. Cardiovascular: Normal rate, regular rhythm and normal heart sounds. Pulmonary/Chest: Effort normal and breath sounds normal. No respiratory distress. Abdominal: There is tenderness (LUQ tender on palpation). There is CVA tenderness (Left). Neurological: She is alert and oriented to person, place, and time. Skin: Skin is warm and dry. Psychiatric: She has a normal mood and affect. Nursing note and vitals reviewed. RESULTS EKG orders: None Radiology orders: RAD US RETROPERITONEAL LIMITED RAD US ABDOMEN ONE ORGAN/QUADRANT ACUTE ABDOMEN SERIES ED Lab Results Labs Reviewed GLUCOSE, GLUCOMETER - Abnormal Result Value Status Glucose, Fingerstick 119 (*) Final Metalizer ID [id number] Final HEMAGRAM AND DIFFERENTIAL - Abnormal WBC 1.16 (*) Final RBC 3.63 (*) Final Hemoglobin 10.4 (*) Final HCT 31.0 (*) Final RDW-CV 14.9 (*) Final PLT 54 (*) Final ABS Neutrophils 0.80 (*) Final ABS Lymphs 0.24 (*) Final ABS Monocytes 0.07 (*) Final MCV 85 Final MCH 28.7 Final MCHC 33.5 Final RDW-SD 46.4 Final MPV 10.6 Final Neutrophils 69.0 Final Lymphocytes 21.0 Final Monocytes 6.0 Final Eosinophils 4.0 Final ABS Eosinophils 0.05 Final Type of Diff: Manual Final HEPATIC FUNCTION PANEL (ALB,ALK PHOS,ALT,AST,DBIL,TOT LUIS,TOT PROT) - Abnormal Total Protein 6.1 (*) Final Albumin 3.5 Final Total Alkaline Phosphatase 75 Final ALT 24 Final AST 15 Final Unconjugated Bilirubin 0.3 Final Conjugated Bilirubin 0.0 Final Bilirubin, Total 0.6 Final POCT URINE DIPSTICK - Abnormal Bilirubin 1+ (*) Final Ketones Trace (*) Final Blood 3+ (*) Final Protein 2+ (*) Final Color Red Final Clarity, UA Clear Final Glucose Neg Final Specific [place] 1.010 Final pH 6.0 Final Urobilinogen 1.0 Final Nitrite Neg Final Leuk Esterase Neg Final Tech ID [id number] Final BACTERIAL CULTURE, URINE ELECTROLYTES Sodium 142 Final Potassium 3.7 Final Chloride 106 Final CO2 27 Final BUN BUN 10 Final CREATININE Creatinine 1.03 Final GFR, Calculated 61 Final LIPASE Lipase 102 Final POCT GLUCOSE Relevant Data Procedures ED COURSE A medical screening exam was performed. Tara Yun is a 56 y.o. female with a history of pancytopenia, liver disease, kidney stones, splenomegaly, C. difficile colitis, neutropenia, pyelonephritis, hypoglycemia, and drug-seeking behavior, s/p appendectomy and cholecystectomy presenting with hematuria and abdominal pain for the past s everal days. Patient had LUQ tenderness and left CVA tenderness. Heart had regular rate and rhythm and lungs were clear to auscultation. Mucous membranes were dry. Dr. Cook is aware of the patient. 01:21: Patient had labs that were reviewed independently by myself, significant for WBC of 1.1, hemoglobin of 10.4, hematocrit of 31, and platelets of 54, which is normal for her baseline. LFTs are normal. Urine shows bilirubin, ketones, blood and protein. Her urine was sent for culture. 02:18: Retroperitoneal US. Normal ultrasound of the left kidney and bladder. Splenomegaly. 02:18: Abdominal US. Normal ultrasound of the left kidney and bladder. Splenomegaly. Patient was given IV Dilaudid for pain management, IV Zofran for nausea, and IV fluids for hydration. Patient was given a starter pack of ondansetron. Prior to discharge usual and customary precautions were reviewed with the patient and/or family including follow-up instructions and reasons to return to the Emergency Department if condition worsens, does not improve as expected, or other new concerns arise. ASSESSMENT AND PLAN Final diagnoses: Hematuria Left upper quadrant pain DISPOSITION: Discharged The patient's pain was managed to an adequate level weighing risk vs. benefit of further medications. Upon departure from the Emergency Department, the patient's pain was 7 on a zero to ten scale. Any further pain treatment will be at the discretion of the provider following up with the patient based on their clinical assessment. Condition at departure from the Emergency Department: Improved PCP: Provider None MDM Number of Diagnoses or Management Options Hematuria: Left upper quadrant pain: Diagnosis management comments: LUQ pain, hematuria, pancytopenia, obstruction, flank pain 5 Amount and/or Complexity of Data Reviewed Clinical lab tests: ordered and reviewed Tests in the radiology section of CPT??: ordered and reviewed Review and summarize past medical records: yes 06/04/2017 5:52 This documentation is recorded by Roberta Almaraz acting as Scribe under the direction and presence of Heike Plummer PA. Heike Plummer PA: I personally performed the services recorded by the scribe in my presence. I confirm the scribe's documentation has been reviewed by me to accurately and completely record my work, treatment, procedures, and medical decision making. Dr. Cook was available for supervision. documented in this encounter Plan of Treatment Upcoming Encounters Date Type Department Care Team (Late st Contact Info) Description 01/04/2025 13:00 EST Office Visit [facility] Ophthalmology - [address] [id number] Gagandeep Rome MD [address] [facility], [facility], [address] 5 [place] [phone] 02/11/2025 13:30 EDT Telemedicine [facility] Hematology & Oncology - [facility] [address] [place], [place] [id number] Dana Padilla MD [address] [facility], Level 2 [place] [phone] documented as of this encounter Procedures Procedure Name Priority Date/Time Associated Diagnosis Comments ACUTE ABDOMEN SERIES STAT 06/01/2017 4:27 EDT RAD US RETROPERITONEAL LIMITED STAT 06/01/2017 1:58 EDT RAD US ABDOMEN ONE ORGAN/QUADRANT STAT 06/01/2017 1:58 EDT COMPLETE BLOOD COUNT AND DIFFERENTIAL STAT 06/01/2017 1:21 EDT BUN STAT 06/01/2017 1:21 EDT LIPASE STAT 06/01/2017 1:21 EDT CREATININE STAT 06/01/2017 1:21 EDT HEPATIC FUNCTION PANEL (ALB,ALK PHOS,ALT,AST,DBIL,TOT LUIS,TOT PROT) STAT 06/01/2017 1:21 EDT ELECTROLYTES STAT 06/01/2017 1:21 EDT BACTERIAL CULTURE, URINE STAT 06/01/2017 1:15 EDT POCT URINE DIPSTICK, CLINITEK STAT 06/01/2017 1:04 EDT GLUCOSE, GLUCOMETER Routine 06/01/2017 0 :48 EDT documented in this encounter Results * ACUTE ABDOMEN SERIES (06/01/2017 4:27 EDT) Anatomical Region Laterality Modality Other 06/01/2017 4:27 EDT 06/01/2017 9:50 EDT Narrative 06/01/2017 9:50 EDT ACUTE ABDOMEN SERIES ??06/01/2017 4:27 AM Signs and Symptoms/Comments: ?? LUQ pain Comparison: Abdominal CT from May 04, 2017 Findings: A PA view of the chest shows no acute consolidations. Discoid areas of atelectasis identified in the bases. The cardiomediastinal silhouette and pulmonary vascularity are within normal limits. There is no evidence of pneumothorax or pleural effusions. AP upright and supine views of the abdomen show no radiopaque stones in the regions of the kidneys, path of the ureters, or overlying the gallbladder. Several phleboliths are present in the pelvis. Marked splenic enlargement is again identified, similar as on the prior CT. Surgical clips are present in the right upper quadrant and right lower quadrant. The bowel gas pattern is normal. The stomach is normal. No evidence of pneumoperitoneum is seen. There is diffuse degenerative spondylosis. There is arthrosis in both acromioclavicular joints and both hip joints. Multiple injection granulomas identified in both gluteal regions, similar as on the prior CT. Impression: Marked splenomegaly, similar as on the prior CT No acute abnormality. No evidence of obstruction. I have personally reviewed the images and the above interpretation and agree with the findings. Procedure Note Ry Verde MD - 06/01/2017 ACUTE ABDOMEN SERIES 06/01/2017 4:27 AM Signs and Symptoms/Comments: LUQ pain Comparison: Abdominal CT from May 04, 2017 Findings: A PA view of the chest shows no acute consolidations. Discoid areas of atelectasis identified in the bases. The cardiomediastinal silhouette and pulmonary vascularity are within normal limits. There is no evidence of pneumothorax or pleural effusions. AP upright and supine views of the abdomen show no radiopaque stones in the regions of the kidneys, path of the ureters, or overlying the gallbladder. Several phleboliths are present in the pelvis. Marked splenic enlargement is again identified, similar as on the prior CT. Surgical clips are present in the right upper quadrant and right lower quadrant. The bowel gas pattern is normal. The stomach is normal. No evidence of pneumoperitoneum is seen. There is diffuse degenerative spondylosis. There is arthrosis in both acromioclavicular joints and both hip joints. Multiple injection granulomas identified in both gluteal regions, similar as on the prior CT. Impression: Marked splenomegaly, similar as on the prior CT No acute abnormality. No evidence of obstruction. I have personally reviewed the images and the above interpretation and agree with the findings. us Heike Plummer PA-C IMG DIAGNOSTIC IMAGING ORDERABLE S Final Result * RAD US ABDOMEN ONE ORGAN/QUADRANT (06/01/2017 1:58 EDT) Anatomical Region Laterality Modality Other 06/01/2017 1:58 EDT 06/01/2017 9:21 EDT Narrative 06/01/2017 9:21 EDT RAD US RETROPERITONEAL LIMITED, RAD US ABDOMEN ONE ORGAN/QUADRANT ?? 06/01/2017 2:06 AM Signs and Symptoms/Comments: ?? left flank pain, hematuria Comparison: CT of the abdomen and pelvis from May 04, 2017 Technique: Grayscale, color Doppler, and cine ultrasound images of the left retroperitoneum and left upper quadrant were performed. Findings: The left kidney is normal in [...] the left kidney and bladder. 2. Splenomegaly I have personally reviewed the images and the above interpretation and agree with the findings. Procedure Note Espinoza Brown MD - 06/01/2017 RAD US RETROPERITONEAL LIMITED, RAD US ABDOMEN ONE ORGAN/QUADRANT 06/01/2017 2:06 AM Signs and Symptoms/Comments: left flank pain, hematuria Comparison: CT of the abdomen and pelvis from May 04, 2017 Technique: Grayscale, color Doppler, and cine ultrasound images of the left retroperitoneum and left upper quadrant were performed. Findings: The left kidney is normal in [...] the left kidney and bladder. 2. Splenomegaly I have personally reviewed the images and the above interpretation and agree with the findings. us Heike Plummer PA-C IMG US ORDERABLES Final Result * RAD US RETROPERITONEAL LIMITED (06/01/2017 1:58 EDT) Anatomical Region Laterality Modality Other 06/01/2017 1:58 EDT 06/01/2017 9:21 EDT Narrative 06/01/2017 9:21 EDT RAD US RETROPERITONEAL LIMITED, RAD US ABDOMEN ONE ORGAN/QUADRANT ?? 06/01/2017 2:06 AM Signs and Symptoms/Comments: ?? left flank pain, hematuria Comparison: CT of the abdomen and pelvis from May 04, 2017 Technique: Grayscale, color Doppler, and cine ultrasound images of the left retroperitoneum and left upper quadrant were performed. Findings: The left kidney is normal in [...] the left kidney and bladder. 2. Splenomegaly I have personally reviewed the images and the above interpretation and agree with the findings. Procedure Note Espinoza Brown MD - 06/01/2017 RAD US RETROPERITONEAL LIMITED, RAD US ABDOMEN ONE ORGAN/QUADRANT 06/01/2017 2:06 AM Signs and Symptoms/Comments: left flank pain, hematuria Comparison: CT of the abdomen and pelvis from May 04, 2017 Technique: Grayscale, color Doppler, and cine ultrasound images of the left retroperitoneum and left upper quadrant were performed. Findings: The left kidney is normal in [...] the left kidney and bladder. 2. Splenomegaly I have personally reviewed the images and the above interpretation and agree with the findings. us Heike Plummer PA-C IMG US ORDERABLES Final Result * LIPASE (06/01/2017 1:21 EDT) Pathologist [facility] Lipase 102 <251 U/L 06/01/2017 1:56 EDT [facility] Blood specimen (specimen) BLOOD SPECIMEN / Unknown 06/01/2017 1:21 EDT 06/01/2017 1:33 EDT us Heike Plummer PA-C CHEMISTRY & BLOOD GAS ORDERABLES Final Result [facility] [address] [place] [address] * (ABNORMAL) HEPATIC FUNCTION PANEL (ALB,ALK PHOS,ALT,AST,DBIL,TOT LUIS,TOT PROT) (06/01/2017 1:21 EDT) Albumin 3.5 3.4 - 4.9 g/dl 06/01/2017 1:56 EDT [facility] Total Protein 6.1(L) 6.3 - 8.2 g/dl 06/01/2017 1:56 [facility] Total Alkaline Phosphatase 75 38 - 126 U/L 06/01/2017 1:56 [facility] ALT 24 <53 U/L 06/01/2017 1:56 [facility] AST 15 15 - 46 U/L 06/01/2017 1:56 [facility] Unconjugated Bilirubin 0.3 0.0 - 1.1 mg/dl 06/01/2017 1:56 EDT [facility] Conjugated Bilirubin 0.0 0.0 - 0.3 mg/dl 06/01/2017 1:56 EDT [facility] Bilirubin, Total 0.6 <1.4 mg/dl 06/01/20 17 1:56 EDT [facility] Blood specimen (specimen) BLOOD SPECIMEN / Unknown 06/01/2017 1:21 EDT 06/01/2017 1:33 EDT us Heike ELDRIDGE-Salvador CHEMISTRY & BLOOD GAS ORDERABLES Final Result Performing Organization Address [facility] Co de Phone Number [facility] [address] [place] [address] * CREATININE (06/01/2017 1:21 EDT) Creatinine 1.03 0.52 - 1.04 mg/dl 06/01/2017 1:56 EDT [facility] GFR, Calculated 61 >60 ml/min/1.7 3m2 06/01/2017 1:56 EDT [facility] Comment: eGFR calculated using CKD-EPI equation for non Americans. Multiply eGFR by 1.16 for Americans. Blood specimen (specimen) BLOOD SPECIMEN / Unknown 06/01/2017 1:21 EDT 06/01/2017 1:33 EDT us Heike ELDRIDGE-C CHEMISTRY & BLOOD GAS ORDERABLES Final Result [facility] [address] [place] [address] * BUN (06/01/2017 1:21 EDT) BUN 10 10 - 26 mg/dl 06/01/2017 1:56 EDT [facility] Blood specimen (specimen) BLOOD SPECIMEN / Unknown 06/01/2017 1:21 EDT 06/01/2017 1:33 EDT us Heike ELDRIDGE-C CHEMISTRY & BLOOD GAS ORDERABLES Final Result Performing Organization Address [facility] Co de Phone Number [facility] [address] [place] [address] * ELECTROLYTES (06/01/2017 1:21 EDT) Pathologist [facility] Sodium 142 136 - 145 mEq/L 06/01/2017 1:56 EDT [facility] Potassium 3.7 3.5 - 5.0 mEq/L 06/01/2017 1:56 EDT [facility] Chloride 106 96 - 110 mEq/L 06/01/2017 1:56 EDT [facility] CO2 27 22 - 32 mEq/L 06/01/2017 1:56 T [facility] Blood specimen (specimen) BLOOD SPECIMEN / Unknown 06/01/2017 1:21 EDT 06/01/2017 1:33 EDT Heike Plummer PA-C CHEMISTRY & BLOOD GAS ORDERABLES Final Result Performing Organization Address [facility] de Phone Number [facility] [address] [place] [address] * (ABNORMAL) HEMAGRAM AND DIFFERENTIAL (06/01/2017 1:21 EDT) Pathologist [facility] WBC 1.16(L) 4.0 - 12.4 K/cmm 06/01/2017 1:46 [facility] RBC 3.63(L) 3.86 - 5.04 M/cmm 06/01/2017 1:46 [facility] Hemoglobin 10.4(L) 11.6 - 15.2 gm/dl 06/01/2017 1:46 [facility] HCT 31.0(L) 34.9 - 44.4 % 06/01/2017 1:46 [facility] MCV 85 81 - 98 fl 06/01/2017 1:46 [facility] MCH 28.7 26.7 - 33.3 pg 06/01/2017 1:46 [facility] MCHC 33.5 32.1 - 35.9 gm/dl 06/01/2017 1:46 [facility] RDW-CV 14.9(H) <14.7 % 06/01/2017 1:46 [facility] RDW-SD 46.4 <50.4 fl 06/01/2017 1:46 [facility] PLT 54(L) 141 - 377 K/cmm 06/01/2017 1:46 [facility] MPV 10.6 9.5 - 12.7 fl 06/01/2017 1:46 [facility] Neutrophils 69.0 % 06/01/2017 2:31 [facility] Lymphocytes 21.0 % 06/01/2017 2:31 [facility] Monocytes 6.0 % 06/01/2017 2:31 [facility] Eosinophils 4.0 % 06/01/2017 2:31 [facility] ABS Neutrophils 0.80(L) 2.20 - 8.85 K/cmm 06/01/2017 2:31 [facility] ABS Lymphs 0.24(L) 1.09 - 3.30 K/cmm 06/01/2017 2:31 [facility] ABS Monocytes 0.07(L) 0.1 - 0.8 K/cmm 06/01/2017 2:31 [facility] ABS Eosinophils 0.05 0.03 - 0.61 K/cmm 06/01/2017 2:31 [facility] Type of Diff: Manual 06/01/2017 2:31 [facility] Blood specimen (specimen) BLOOD SPECIMEN / Unknown 06/01/2017 1:21 EDT 06/01/2017 1:33 EDT Heike Plummer PA-C PACKAGES & DNA PROBE ORDERABLES Final Result [facility] [address] [place] [address] * BACTERIAL CULTURE, URINE (06/01/2017 1:15 EDT) Result Less than 10,000 CFU/ml Usual urogenital tiffanie. 06/02/2017 7:52 EDT [facility] Urine specimen (specimen) URINE / Unknown 06/01/2017 1:15 EDT 06/01/2017 8:23 EDT Comment:Clean catch specimen ~Bloody specimen us Heike Plummer PA-C MICROBIOLOGY - GENERAL ORDERABLE S Final Result [facility] [address] [place] [address] * (ABNORMAL) POCT URINE DIPSTICK (06/01/2017 1:04 EDT) Color Red 06/01/2017 1:12 T [facility] Clarity, UA Clear 06/01/2017 1:12 T [facility] Glucose Neg Neg 06/01/2017 1:12 [facility] Bilirubin 1+(A) Neg 06/01/2017 1:12 [facility] Ketones Trace(A) Neg 06/01/2017 1:12 [facility] Specific [place] 1.010 1.001 - 1.035 06/01/2017 1:12 [facility] Blood 3+(A) Neg 06/01/2017 1:12 [facility] pH 6.0 4.6 - 8.0 06/01/2017 1:12 [facility] Protein 2+(A) Neg 06/01/2017 1:12 [facility] Urobilinogen 1.0 0.2 - 1.0 E.U./dl 06/01/2017 1:12 [facility] Nitrite Neg Neg 06/01/2017 1:12 [facility] Leuk Esterase Neg Neg 06/01/2017 1:12 [facility] diamond setter ID [id number] 06/01/2017 1:12 [facility] Comment:Test performed at [facility] Urine specimen (specimen) URINE / Unknown 06/01/2017 1:04 EDT 06/01/2017 1:12 EDT us Heike Plummer PA-C POINT OF CARE TEST ORDERABLES Fi nal Result [facility] [address] [place] [address] * (ABNORMAL) GLUCOSE, GLUCOMETER (06/01/2017 0:48 EDT) Glucose, Fingerstick 119(H) 70 - 100 mg/dl 06/01/2017 0:53 EDT [facility] [place] [id number] 06/01/2017 0:53 EDT [facility] Comment:Test Performed by [facility] BLOOD SPECIMEN / Unknown 06/01/2017 0:48 EDT 06/01/2017 0:53 EDT us Provider Unknown CHEMISTRY & BLOOD GAS ORDERA BLES Final Result Performing Organization Address City/[facility] Co de Phone Number [facility] [address] [place] [address] documented in this encounter Visit Diagnoses Diagnosis Hematuria- Primary Hematuria, unspecified Left upper quadrant pain Abdominal pain, left upper quadrant documented in this encounter Administered Medications Inactive Administered Medications - up to 3 most recent administrations Medication Order MAR Action Action Date Dose Rate Site HYDROmorphone (DILAUDID) injection 0.5 mg 0.5 mg, intravenous, NOW X1, 1 dose, On Tue06/01/17 at 0130, STAT Given 06/01/2017 1:43 EDT 0.5 mg ondansetron (PF) (ZOFRAN) injection 4 mg 4 mg, intravenous, NOW X1, 1 dose, On Tue06/01/17 at 0130, STAT Given 06/01/2017 1:43 EDT 4 mg ondansetron (PF) (ZOFRAN) injection 4 mg 4 mg, intravenous, NOW X1, 1 dose, On Tue06/01/17 at 0245, STAT Given 06/01/2017 2:42 EDT 4 mg ondansetron 4 mg ODT tab STARTER PACK 1 Package, oral, NOW X1, 1 dose, On Tue06/01/17 at 0530, STAT Given 06/01/2017 5:27 EDT 1 Package sodium chloride 0.9 % BOLUS 1,000 mL 1,000 mL, intravenous, NOW X1, 1 dose, On Tue06/01/17 at 0130, STAT New Bag 06/01/2017 1:43 EDT 1,000 mL documented in this encounter Active and Recently Administered Medications Times are shown in EDT. Scheduled Medication Order 05/30/2017 05/31/2017 06/01/2017 HYDROmorphone (DILAUDID) injection 0.5 mg (COMPLETED) 0.5 mg, intravenous, NOW X1, 1 dose, On Tue06/01/17 at 0130, STAT 0143 (Given - Provid er: Anastasia Trent, RN) ondansetron (PF) (ZOFRAN) injection 4 mg (COMPLETED) 4 mg, intravenous, NOW X1, 1 dose, On Tue06/01/17 at 0130, STAT 0143 (Given - Provid er: Anastasia Trent, RN) ondansetron (PF) (ZOFRAN) injection 4 mg (COMPLETED) 4 mg, intravenous, NOW X1, 1 dose, On Tue06/01/17 at 0245, STAT 0242 (Given - Provid er: Anastasia Trent, RN) ondansetron 4 mg ODT tab STARTER PACK (COMPLETED) 1 Package, oral, NOW X1, 1 dose, On Tue06/01/17 at 0530, STAT 0527 (Given - Provid er: Justina Ponce RN) sodium chloride 0.9 % BOLUS 1,000 mL (COMPLETED) 1,000 mL, intravenous, NOW X1, 1 dose, On Tue06/01/17 at 0130, STAT 0143 (New Bag - Prov ider: Anastasia Trent, RN)[id number] (Completed - Provider: Anastasia Trent, RN) documented in this encounter Orders Lab Orders Without Results Count Last Ordered D ate First Ordered Date POCT GLUCOSE 06/01/2017 Nursing Count Last Ordered Date First Orde red Date INSERT SALINE LOCK 06/01/2017 documented in this encounter Care Teams Accounts Receivable Assistant Relationship Specialty Start Date End Date None, Provider PCP - General 03/25/17 09/08/17 documented as of this encounter
--- OUTSIDE RECORDS SUMMARY | 2024-11-22 17:28 | XMS_ITS | Encounter Summary ---
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 this encounter Care Teams Marketing Support Manager Relationship Specialty Start Date End Date Jaimie Evans MD [address] [place] [address] PCP - General 09/20/17 09/29/17 documented as of this encounter
--- OUTSIDE RECORDS SUMMARY | 2024-11-22 17:29 | XMS_ITS | Encounter Summary ---
Author Organization [facility] Address [address] [place] [address] Care Team Providers Care Editor Department Name Role Phone Alli Lew MD Primary Care Provider [phone] Reason for Visit * Reason Onset Date Comments Appointment Related 02/24/2017 Encounter Details Date Type Department Care Team (Late st Contact Info) Description 02/24/2017 Telephone [facility] Hematology & Oncology - [facility] [address] [place] [address] Starr Paige MD [address] [place] [phone] Appointment Related Social History Tobacco Use [...] encounter Miscellaneous Notes * Telephone Encounter - Juana Cuellar - 02/24/2017 1604 EDT Called and spoke to patient. Scheduled her to see Dr. Starr Paige on: Thursday, April 20, 2017 at 10:30 AM. Confirmed her mailing address and sent a New Patient Letter with Questionnaire. Gave hermy direct phone number to call with questions. Records in [facility]. documented in this encounter Plan of Treatment Upcoming Encounters Date Type Department Care Team (Late st Contact Info) Description 01/04/2025 13:00 EST Office Visit [facility] Ophthalmology - [address] [phone] Gagandeep Rome MD [address] [place] [address], [address] [place] [phone] 02/11/2025 13:30 EDT Telemedicine [facility] Hematology & Oncology - [address] [phone] Dana Padilla MD [address] [facility], [facility], [address] [place] [phone] documented as of this encounter Visit Diagnoses Not on filedocumented in this encounter Care Teams Editor Department Relationship Specialty Start Date End Date Alli Lew MD [address] [place] [address] [place] [phone] PCP - General 02/24/17 03/24/17 documented as of this encounter
--- OUTSIDE RECORDS SUMMARY | 2024-11-22 17:29 | XMS_ITS | Encounter Summary ---
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 Previously followed at [facility], would like to establish care at [facility] * Consult (Routine) - Closed Specialty Diagnoses / Procedures Referred By Contac t Referred To Contact Hematology Diagnoses Pancytopenia (HCC-CMS) Splenic vein thrombosis Marisela Cunningham MD Phone: tel: fax: Referral ID Status Reason Start Date Expiration Date V isits Requested Visits Authorized [id number] Closed Specialty Services Required 02/23/2017 1 1 Question Answer Reason for Request: Pancytopenia and splenic vein thrombus. Had been followed at [facility], would like to establish care with [facility] Reason for Visit * Reason Comments Abdominal Pain c/o's of upper abdom inal pain waxing and waning with episodes of sharp pain associated with SOB. additionally reports increasing weakness over last few days with syncope x2 today. hx of liver disease. Encounter Details Date Type Department Care Team (Late st Contact Info) Description 02/21/2017 21:51 EDT - 02/23/2017 18:17 EDT Emergency [facility] Hematology & Oncology Unit [address] [place] [id number] Gio eFlix MD 111 [facility], Level [address] [place] [phone] Josefina Beckford MD MPH [address] [phone] Ebenezer Qiu MD [address] [phone] Pancytopenia (CMS-HCC) (HCC-CMS) (Primary Dx); Neutropenia, unspecified type (CMS-HCC); Epigastric pain; Vasovagal syncope; Syncope, unspecified syncope type; Splenic vein thrombosis; 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); Thrombocytopenia (CMS-HCC); Hypoglycemia Discharge Disposition: Home or Self Care Social [...] Sign Reading Time Taken Comments Blood Pressure 124/62 02/23/2017 1352 EDT Pulse 83 02/23/2017 1352 EDT Temperature 36.9 ??C (98.4 ??F) 02/23/2017 1352 EDT Respiratory Rate 16 02/23/2017 1352 EDT Oxygen Saturation 96% 02/23/2017 1352 EDT Inhaled Oxygen Concentration - - Weight 88 kg (194 lb) 02/21/2017 1720 EDT Height 165.1 cm (5' 5) 02/21/2017 1720 EDT Body Mass Index 32.28 02/21/2017 1720 EDT documented in this encounter Functional Status [...] documented in this encounter Discharge Diagnoses Diagnosis E16.2 Hypoglycemia, unspecified-E16.2[ICD-10-CM] R55 Syncope and collapse-R55[ICD-10-CM] N12 Tubulo-interstitial nephritis, 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-N12[ICD-10-CM] D73.5 Infarction of spleen-D73.5[ICD-10-CM] D70.9 Neutropenia, unspecified-D70.9[ICD-10-CM] K76.0 Fatty (change of) liver, not elsewhere classified-K76.0[ICD-10-CM] D69.59 Other secondary thrombocytopenia-D69.59[ICD-10-CM] I81 Portal vein thrombosis-I81[ICD-10-CM] F17.210 Nicotine dependence, cigarettes, uncomplicated-F17.210[ICD-10-CM] J45.909 Unspecified asthma, uncomplicated-J45.909[ICD-10-CM] D68.9 Coagulation defect, unspecified-D68.9[ICD-10-CM] Z79.899 Other director long term care (current) drug therapy-Z79.899[ICD-10-CM] E03.9 Hypothyroidism, unspecified-E03.9[ICD-10-CM] documented in this encounter Discharge Summaries * Ebenezer Qiu MD - 02/23/2017 0616 EDT Medicine Discharge Summary Primary Care Provider: Provider None Attending Physician: Ebenezer Qiu MD Admit Date: 02/21/2017 Discharge Date: 02/23/17 Disposition: Home or self care Reason for Admission: Pre-syncopal episode and epigastric pain Principal/Final Diagnosis: Hypoglycemia Additional Problems Managed in the Hospital Active Hospital Problems Diagnosis Date Noted ??? *Hypoglycemia 02/23/2017 ??? Drug-seeking behavior Per Dr Amelia Tijerina and notes from [facility] patient misconstrued information to several providers about multiple concurrent opiate prescription ??? Vasovagal syncope 02/21/2017 ??? Neutropenia 02/21/2017 ??? Epigastric pain 02/21/2017 ??? Syncope 02/21/2017 ??? Pancytopenia 07/18/2015 Resolved Hospital Problems Diagnosis Date Noted Date Resolved No resolved problems to display. Principal Procedure: None Hospital Course: 56-year-old female with history of cirrhosis (reportedly due to MACHADO), hypersplenism, chronic non-occlusive splenic vein thrombosis (diagnosed November, not on anticoag), pancytopenia(prior BM Bx at [facility]), MGUS, hypothyroidism and recurrent syncope, who had been receiving her previous care at [facility], but was in the process of transferring care to [facility]. She presented with several episodes of dizziness and worsening acute on chronic epigastric pain and nausea. She reported having been found to be hypoglycemic with at least one of the prior episodes of dizziness. In the ED, vitals were unremarkable. Labs were notable for her baseline leukopenia and thrombocytopenia. The patient was not anemic, and metabolic parameters, liver tests and lipase were normal, and her glucose was [address] abdomen and pelvis showed no acute pathology or ascites, and made note of decreased size of previously discovered non-occlusive splenic vein thrombosis. She specifically asked for, and initially received IV hydromorphone in the ED. Narcotics were subsequently stopped after review of medical records from [facility] (multiple ED visits with pain complaints) and [facility] (no longer felt to be eligible for opioids based on concerns about drug seeking) suggested drug seeking behaviors. Her PCP confirmed that she had misrepresented information about narcotic prescriptions to several concurrent prescribing physicians, and had falsely claimed that her certified marine mechanic from [facility] had told her she was not allowed to receive any no-opioid analgesic medications. She was informed that she would no longer receive opiates based on this information, and did not ask for more narcotics thereafter. Of note, although she denied any regular prior ETOH or drug use, she spontaneously made numerous jokes pertaining to alcohol, and complained that some people she knows drink a lot and did not get cirrhosis. Additionally, she was noted to have had a cocaine positive [facility] in 2014, and was found to be hep C ab positive. Due to hypoglycemia, the patient underwent an observed fast. Her blood sugar decreased but did not go below 80 in the 24 hours of fasting. HgA1C was noted to be 5.4 and she denied using any diabetic medications. She did report having lost 80 pounds using a low carbohydrate diet. She remained asymptomatic, and desired to eat the following day rather than proceeding with a full 72 hour fast. Coursewas notable for asymptomatic hypotension during sleep, which resolved with IVF. Given her hypoglycemia and hypotension a morning cortisol was checked and came back at 3. A cosyntropin stimulation test was done, which was normal. She was discharged on 02/23/2017 with instructions to follow up in hepatology clinic and with her PCP(she is going to establish care with a new PCP within the week). Imaging: CT abdomen, pelvis (02/21/2017): Impression: 1. Cirrhosis and portal hypertension with [...] lesion in the dome of the liver. Condition at Discharge: Improved Clinical Issues Needing Follow-up: Pancytopenia, splenic vein thrombus: Previously managed at [facility], but patient would like to establish care with [facility]. Referral to hematology placed. B12 was noted to be low normal and MMA level was pending at the time of discharge. Cirrhosis, portal HTN: Previously managed at [facility], but patient would like to establish care with [facility]. Referral to GI placed. May need treatment for hep C (RNA and genotype pending). Patient was given list of primary care offices currently accepting patients, as patient would like to establish care with a new PCP. Patient will call the offices today or tomorrow in order to set upan appointment to establish care in about a week. Discharge Medications: CONTINUE taking these medications Sig albuterol 90 mcg/actuation inhaler Inhale 2 Puffs as directed every 4 hours. ferrous gluconate 324 mg (38 mg iron) tablet Commonly known as: FERGON Take 324 mg by mouth 2 times daily with breakfast and dinner. fluticasone 110 mcg/actuation inhaler Commonly known as: FLOVENT Inhale 110 mcg as directed 2 times daily. LEVOTHYROXINE ORAL Take 0.25 mg by mouth daily Unknown dose ondansetron 4 mg disintegrating tablet Commonly known as: ZOFRAN-ODT Take 1 Tab by mouth every 8 hours as needed for Nausea. pantoprazole 40 mg tablet Commonly known as: PROTONIX Take 40 mg by mouth daily. XANAX 1 mg tablet Generic drug: ALPRAZolam [...] this admission Procedure Component Value Units Date/Time Methylmalonic Acid [[id number]] Collected: 02/21/17 1731 Lab Status: In process Updated: 02/22/17 1040 Follow-up appointments and procedures Amb Consult/Follow Up Gastroenterology Reason for Request: Cirrhosis, portal HTN. Previously followed at [facility], would like to establish care at [facility] Authorizing Provider: Marisela Cunningham MD Amb Consult/Follow Up Hematology Reason for Request: Pancytopenia and splenic vein thrombus. Had been followed at [facility], would like to establish care with [facility] Authorizing Provider: Marisela Cunningham MD Discharge Handoff Communication Patient does not have a PCP; she was given a list of doctors accepting new patients and instructed to call the offices within the next few days to establish care. Discharge Summary Completed By: Marisela Cunningham MD 02/23/2017 18:20 Ebenezer Qiu MD (I spent > 30 mins - all FTF and coordination - prior PCP, Dr Tijerina was contacted my me) documented in this encounter Discharge Instructions * Discharge Instr - Other Orders* Angela Snyder MD - 02/23/2017 15:25 EDT Eat small frequent meals to avoid hypoglycemia. Please call to establish with a primary care provider, from the list provided to you. You have been referred to follow up with Gastroenterology and Hematology as an outpatient. They will contact you for follow up. documented in this encounter Medications at Time of Discharge albuterol 90 mcg/actuation inhaler Inhale 2 Puffs as directed every 4 hours as needed. 1 ALPRAZolam (XANAX) 1 mg tablet Take 1 mg by mouth 3 times daily. 7 ferrous gluconate (FERGON) 324 mg (38 mg iron) tablet Take 324 mg by mouth daily with breakfast. 1 fluticasone (FLOVENT) 110 mcg/actuation inhaler Inhale 110 mcg as directed 2 times daily. 0 LEVOTHYROXINE SODIUM (LEVOTHYROXINE ORAL) Take 25 mcg by mouth daily. Unknown dose 0 ondansetron (ZOFRAN-ODT) 4 mg disintegrating tablet Take 1 Tab by mouth every 8 hours as needed for Nausea. 12 Tab 02/01/2017 7 pantoprazole (PROTONIX) 40 mg tablet Take 40 mg by mouth daily. 9 rifAXImin (XIFAXAN) 550 mg tablet Take 550 mg by mouth 2 times daily 9 documented as of this encounter Discharge Disposition Disposition Code Departure Means Destination Home or Self Care documented in this encounter Progress Notes * Kimberley Nazario RN - 02/23/2017 1810 EDT Focus: Discharge D: Pt noted with discharge orders to home. A: Reviewed discharge paperwork and prescriptions with patient. IV D/C???d Belongings collected and sent home with patient. R: Pt verbalized understanding of discharge paperwork and denied further questions. Pt left floor via Kimberley Nazario RN 02/23/2017 18:15 * Maritza Singh - 02/23/2017 1431 EDT Spiritual Care Note Re: Tara Boothe : 1960, AGE: 56 y.o. Room: [place] [id number] Tara Boothe who is listed as Restorationism has received a visit from the Spiritual Care Department on 02/23/2017. Need/Assessment: ?? Pt stated that she had just moved to this area and living in [place] to be close to her grand children. ?? One of her grand daughters, Celena, has been with her for the past 9 years and she has just learned that she has run away and pt is trying to make phone calls to help find her. ?? Pt is waiting for her younger daughter to come take her hope. Intervention: ?? Informed pt of our service and offered a listening presence to her feelings about her grand daughter. Outcome: ?? Pt has no needs now as she is leaving but is aware of our service as she knows she will be back. Plan of Action: x No Follow up necessary - Needs met Continued Family Support Continued Support from [employer] following patient Make a Referral to: Continued Support with Volunteer Visits Connect with Community Supports Ask for a consult from: Other: Visit Initiated by: Referral Time: End of Life / Comfort Care / Hospice Urgent Request - Time: 3 Level of Visit Services Provided: Anointing of Sick Prayer Communion Relaxation through music Assist Advanced Directives Integrative therapies Assist Decision Making Acevedo and Prayer at dying Exploration of Ethical issues Present at time of Family Support Other Chaplain Belkis Zuluaga 131 Phone [phone] Spiritual Care is available 24 hours a day. Office hours are 0800 to 1700 Tuesday through Tuesday and 0830 to 1630 Tuesday and Tuesday. Interfaith and Mosque chaplains are available 24 hours a day. For routine consults please call and leave a message with the Spiritual Care Office ([phone]) and patients will be seen within 24 hours. Forall emergent consults page the Jehovah'S Witness or Interfaith on-call [employer] through [facility] ([phone]). * Ling Isabel - 02/23/2017 1216 EDT Visit to patient at patient bedside. Patient is eager to discharge because a friend just lost someone to cancer and patient wants to be supportive. accounts payable manager gave patient a list of practices that are accepting new patients as patient does not have a PCP. * Oni Cabrera - 02/23/2017 0808 EDT Medicine Progress Note Service Date: 02/23/2017 Admit Date: 02/21/2017 21:51 Reason for Admission: 56 y.o. female admitted with a chief complaint of syncope and now with a principal diagnosis of hypoglycemia. 24 Hour Events: - Pt had a BP of 74/42 early this AM, administered 1L of IV fluids. 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 She states that she feels better today, reporting 3/10 abdominal pain and no nausea. She relates that she was finally able to geta good night of sleep last night. She denies dizziness or lightheadedness during ambulation. She states that she is really hungry and wants to go home soon. Review of Systems Constitutional: No fevers or chills. Increased appetite (on 72 hour fast). Head: Positive for headache. Cardiovascular: No palpitations. Gastrointestinal: Epigastric/LUQ pain has decreased. No nausea or vomiting. Neurological: No tingling or numbness in extremities. Objective Vital Signs Temp: 36.1, HR: 79, BP: 110/61, RR: 18, SpO2: 98% (on RA) Physical Exam Gen: AAOx3, appeared tired. CV: Regular rate and rhythm. S1, S2 normal. No murmurs, rubs or gallops appreciated. Lungs: CTAB in anterior and posterior lung godwin. No wheezes or crackles. Abd: Bowel sounds normoactive. Epigastric/LUQ tenderness and guarding (less than yesterday). Ext: no leg edema. Medications See Plan. Labs Glucose: 85 (in the 80s overnight, tested every 2 or 4 hours) WBC: 1.06 (from 1.50 yesterday AM, 0.94 4/3 PM; baseline is 1.4-2), Hb: 10.7 (from 11.3 yesterday),Hct: 32.1, Plt: 51 (from 57 yesterday; baseline is 55-80). Electrolytes unremarkable. Imaging None. Assessment/Plan Assessment This is a 56 yo female with a PMH of NAFLD, chronic leukopenia and thrombocytopenia, and thrombosisof proximal portal and splenic veins, who has had recurring syncope likely associated with hypoglycemia, and epigastric/LUQ pain likely associated with gastropathy. Pt appears to be improving today, r eporting decreased abdominal pain and nausea and denying any of the symptoms she has had in the past associated with hypoglycemia. Plan 1) Epigastric/LUQ pain secondary to gastropathy: pt states pain and nausea have decreased w/o tramadol or ondansetron. - Discontinue tramadol prn - Avoid opioids due to history of drug-seeking behavior - Continue pantoprazole 40 mg, oral, daily - Continue ondansetron 4 mg, q4h prn ?? 2) Hypoglycemia: 72 hour fast in progress; glucose was in 80s overnight. - If insulinoma, positive for Whipple triad: 1) symptoms brought on by fasting, 2) blood glucose <50 during symptoms, and 3) glucose administration brings relief of symptoms. - Her syncopal episodes seem to be most likely due to recurrent hypoglycemia or vasovagal reaction - Consider lab testing for serum insulin, C-peptide and glucose - Dextrose 50% 25 g, IV, prn - Order serum cortisol to R/O adrenal insufficiency; if low, check serum ACTH, aldosterone and renin levels - Consider endocrinology consult - Dr. Qiu discussed with pt the importance of regular diet and hydration ?? 3) Leukopenia/thrombocytopenia: WBC dropped to 1.06, platelets dropped to 51. Continue to follow WBC and PLT, monitor for signs of infection. - SPEP to f/u MGUS and determine if pt is progressing to multiple myeloma - Hematology referral to determine etiology of neutropenia ?? 4) Cirrhosis: pt should be connected to GI outpatient and possibly receive a liver biopsy to determine etiology of cirrhosis. ?? 5) Hypothyroidism: - Continue levothyroxine. 6) Hepatic encephalopathy: - Continue rifaximin 550 mg, oral, BID. VTE Prophylaxis Ambulate Discharge Plan Continue 72 hour fast; discharge afterwards if glucose remains stable. Oni Cabrera 02/23/2017 8:08 * Ling Isabel - 02/22/2017 5331 EDT Initial Case Management/Social Work Assessment and Discharge Plan/Readmission Risk Assessment REASON FOR ADMISSION: Hypoglycemia Patient understands reason for admission: Yes PATIENT CONTACT INFO VERIFIED: Yes (Added Petros Frankel [phone] significanT other) PATIENT ADDRESS VERIFIED: Yes LIVING ARRANGEMENTS AND ACCESSIBILITY ISSUES: Living Arrangements: Friends, Apartment Levels: 1 Stairs to enter: 1 Handicap access: Railings into home Bathroom located on bedroom level?: Yes What in home social supports are available to the patient? Children, Friends / neighbors, Spouse / significant other (Patient lives in a rented room in a house owned by Federica Logan) Is 13/06 care available? No ADVANCED DIRECTIVES, POA &/or COLST IN PLACE: Healthcare Directive: No, patient does not have advance directive for healthcare treatment Information Provided on Healthcare Directives: No (Patient very very sleepy. ) Information on Healthcare Directives Requested: No DIRECTIVES FOR FINANCES: Directive For Finances: No TRANSPORTATION: Transportation: Family (Boyfriend and landlady take patient to appointments and for groceries. patient drives but has no car. ) CULTURAL, HINDU and/or LANGUAGE factors affecting health care/discharge planning: Spiritual/Cultural Requests: None Any factors affecting health care/discharge planning?: No Insurance in Place: Yes Medical Insurance: Yes Type of insurance: Medicare, Medicaid Medicare type: A, B Medicaid Type: LTC Medicaid Referred to patient financial services: No DISCHARGE RISK ASSESSMENT: Polypharmacy, > 7 medications;Repeat hospitalizations/ED visits;Requires assistance with ADLs/IADLs Total # selected above: Score of 2 [...] 8 Patient expects to be discharged to: Return to self care vs home with home health SBIRT: No, not indicated FUNCTIONAL STATUS: Activities patient requires assistance: Food preparation/shopping Assistive Device: None COMMUNITY RESOURCES/SUPPORTS: Primary Care Provider: Provider None PCP Verified: Yes (Patient does not have a PCP and is looking for one,) Specialists: None Type of Home Health Services: None DME Provider: not at this time Pharmacy: [id number] [address] Home Health: Not at this time Other: S/O Petros Frankel will provide a ride POST HOSPITAL TRANSITION PLAN: home to self care vs home with home health pending clinical course Ling Isabel 02/22/2017 13:53 * Ebenezer Qiu MD - 02/22/2017 0646 EDT Medicine Progress Note Service Date: 02/22/2017 Admit Date: 02/21/2017 21:51 Reason for Admission: 56 y.o. female admitted with a chief complaint of syncope and epigastric painand now with a diagnosis of hypoglycemia. 24 Hour Events: - admitted to medicine service Subjective/Objective Subjective Ms. Boothe continues to complain of abdominal pain, primarily in the epigastric region with radiation to the left upper quadrant. She also feels nauseous, with little to no appetite. Received oxycodone overnight but states that it made her feel really nauseous. Pain is not associated with food (always present). Denies any lightheadedness/dizziness today. No rashes or lesions. No fever or chills. Having regular BMs, with no diarrhea or constipation. No dysuria or hematuria. Review of Systems Pertinent items are noted in Subjective/HPI Objective Vital Signs Temp: [35.6 ??C (96.1 ??F)-36.4 ??C (97.5 ??F)] (), Heart Rate: [75 BPM-92 BPM] (), Resp: [16-21] (), BP: (105-150)/(57-79) (), SpO2: [98 %-100 %] () Physical Exam Gen : Alert and oriented, seated comfortably at the side of the bed, smiling, affect full HEENT: normocephalic, atraumatic, sclerae anicteric. Dry mucous membranes Heart: Regular rate and rhythm, no murmur appreciated Lungs: Clear to auscultation bilaterally Abdomen: Multiple surgical scars, stretch connolly, diffuse mild tenderness to palpation worse over epigastrium, palpable spleen and liver, no peritoneal signs, soft, nondistended Extremities: Warm, well perfused. no edema Neuro: No deficits noted Skin: Not jaundiced . No petechia. Medications Reviewed: All medications reviewed in PRISM Hydromorphone 0.2mg every 3 hours PRN Alprazolam 1mg TID Rifaximin 550mg BID Albuterol Fluticasone Levothyroxine 250mcg Labs Reviewed: BMP: Recent Labs 02/21/17 1731 NA 145 K 3.6 CL 107 CO2 30 BUN 13 CREATININE 0.84 LABALBU 4.0 Recent Labs 02/21/17 1731 02/22/17 0705 WBC 0.94* 1.50* RBC 4.15 4.03 HGB 11.8 11.3* HCT 35.6 34.8* MCV 86 86 MCH 28.4 28.0 MCHC 33.1 32.5 PLT 59* 57* NEUTROABS 0.57* 0.91* Imaging Reviewed: CT abdomen and pelvis (02/21/2017): Impression: 1. Cirrhosis and portal hypertension with [...] lesion in the dome of the liver. Assessment/Plan Assessment 56-year-old female with medical history most notable for MACHADO/cirrhosis, chronic leukopenia and thrombocytopenia (thought to be 2/2 to her hypersplenia, last bone marrow bx 2012), splenic and portal vein thromboses, recurrent hypoglycemic episodes, MGUS presenting with syncope and acute on chronic abdominal pain. Although her pain was initially thought to be secondary to portal and splenic vein thromboses, the thombi have decreased in size since prior imaging. Differential also includes gastropathy or erosions. On further investigation through care everywhere, patient has had concerning behaviors in the past in regards to drug seeking. She has received opioid medications from multiple doctors and has given the impression that she has been told to avoid alternatives such as tylenol (while she actually can take 2g a day). Her primary care doctor had weaned her off of opioid medications due to this behavior. Therefore, will discontinue oxycodone and temporarily continue tramadol, with plans at discharge for no prescription pain medications. Plan Abdominal pain: Acute on chronic, initially thought to be secondary to thromboses versus her known portal hypertensive gastropathy and erosions. However, labs are at baseline, thrombi are smaller, and no other apparent cause for acute worsening. Concern for drug seeking behavior - tramadol 50mg every 6 hours for now - IV fluids, given that she appears dehydrated - BID PPI - Zofran every 4 hours PRN for nausea - add urine tox to urinalysis sample yesterday ?? Hypoglycemia: Although thought to be due to hepatic dysfunction and impaired gluconeogenesis, her other liver function tests are normal. - Fasting test to assess for development of hypoglycemia (NPO, but water OK) - q4 POCT glucose checks, with additional checks if patient has any symptoms - If fasting test positive, will pursue further work up for hypoglycemia ?? MACHADO/cirrhosis: chronic. No evidence of decompensation - continue rifaximin ?? 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 Labs are at her baseline - monitor, neutropenic precautions, hold anticoag/dvt ppx Hypothyroidism: - continue Synthroid VTE Prophylaxis Holding in setting of thrombocytopenia Discharge Plan Uncertain at this time Consults None Marisela Cunningham MD 02/22/2017 12:25 Internal Medicine PGY-1 Pager: [phone] Attending attestation: I have seen and examined the patient and agree with findings and plans as outlined in the resident's note above. 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 Risks of anticoagulation outweigh potential benefits. Will check B12, Folate and HIV ab. Per my discussion with her PCP, notes from our ED and records from [facility], she has a history of drugseeking behavior including misleading multiple concurrent prescribers and misrepresenting her priorhepatologists recommendations regarding eligibility for non-opiate analgesia. Of note he also had acocaine positive U Tox in 2015. Will thus avoid narcotics as much as feasible. Given her chief complaint of recurrent hypoglycemia contributing to syncope, will institute an observed fast and evaluate for endogenous and exogenous causes if this develops. This may require up to 72 hours to be diagnostic. Would also aggressively resuscitate with IVF given that she appears dry. Ebenezer Qiu MD documented in this encounter H&P Notes * Oni Cabrera - 02/22/2017 0903 EDT Medicine Admitting H&P Admit Date: 02/21/2017 Date of Service: 02/22/2017 PCP: Provider None Chief Complaint: Syncope, epigastric/LUQ pain HPI: Tara Boothe is a 56 yo female with a PMH of non-alcoholic fatty liver disease, chronic leukopeniaand thrombocytopenia secondary to splenomegaly/sequestration, and thrombosis of proximal portal andsplenic veins, who presented to the hospital yesterday after a syncopal event at her home. She alsohas [id number] epigastric and LUQ pain for the past week. She reports prodromal dizziness before falling in her kitchen. She does not think she lost consciousness, and denies head injury. She states that she has had three other blackouts in the past eight months. After a syncopal event in January in which she had LOC, her neighbors came to her assistance and measured a blood sugar of 32. Since that event, the patient monitors her blood glucose daily and states that she often gets readingsbelow 70. Tara states that she has had abdominal pain on and off for the past few years, but until recently it was nothing I couldn't handle. Patient currently reports abdominal pain 8/10 radiating to her back. She has a history of nephrolithiasis, but she says her current pain feels different. She relates that she has not been able to sleep for the past several nights due to the pain (dilaudid did not help last night). She does not believe her abdominal pain is associated with eating. She has been told that she cannot take tylenol or aspirin, due to her liver disease and thrombocytopenia respectively. Pertinent positives include chills, 100-pound weight loss over the past 5-6 years, fatigue, difficulty sleeping, headache, N/V, palpitations (during stressful situations), easy bleeding/bruising, andnumbness/tingling in hands. She lives in [place] with friends and commutes to a job at [employer]. Patient has a 10 pack-year smoking history (currently smokes). She denies alcohol and recreational drug use. Investigation into prior medical encounters reveals that patient may have drug- seeking behavior, asshe has been prescribed opioids by multiple doctors. PMH PSH Past Medical History: Diagnosis Date ??? Asthma ??? Bleeding disorder ??? Cirrhosis of liver ??? Heartburn ??? Rheumatoid arthritis Past Surgical History: Procedure Laterality Date ??? APPENDECTOMY ??? CHOLECYSTECTOMY ??? HERNIA REPAIR ??? HYSTERECTOMY ??? KNEE SURGERY ??? TONSILLECTOMY Social History Family History Social History Substance Use Topics ??? Smoking status: Current Every Day Smoker Packs/day: 0.50 Years: 20.00 ??? Smokeless tobacco: Never Used ??? Alcohol use No No family history on file. Medications Albuterol 90 mcg inhaler, 2 puffs q4h prn (asthma) Alprazolam 1 mg, oral, TID (anxiety?) Ferrous gluconate 324 mg, oral, BID Fluticasone 110 mcg inhaler, BID (asthma) Levothyroxine 0.25 mg, daily (hypothyroidism) Ondansetron 4 mg, oral, q8h, prn (nausea) Pantoprazole 40 mg, oral, daily (gastritis) Rifaximin 550 mg, oral, BID (hepatic encephalopathy) Allergies Morphine - anaphylaxis Acetaminophen - contraindicated (see Subjective) Toradol - SOB Aspirin - contraindicated (see Subjective) Metoclopramide - rash Sulfa - rash Review of Systems: Constitutional: Positive for chills and weight loss. No fevers. Appetite normal. Head: Positive for headache. Denies injury. Eyes: No visual changes. ENT/mouth: No oral complaints. Cardiovascular: Positive for palpitations with stress. No chest pain. Respiratory: No shortness of breath. Gastrointestinal: Epigastric/LUQ pain radiating to back. Significant nausea, accompanied by vomiting 2-3 times. No diarrhea or constipation. Musculoskeletal: No weakness in extremities. Neurological: Tingling/numbness in hands occasionally. Hematologic: Easy bleeding and bruisability. Objective/Physical Exam: VS: Temp: 35.9, HR: 72, BP: 105/69, RR: 18, SpO2: 98% (on room air) Weight: Weight : 88 kg (194 lb) Body mass index is 32.28 kg/(m^2). Glucose Readings (last 8 readings): Recent Labs 02/21/17 1926 02/21/17 2216 02/22/17 0142 02/22/17 0629 GLUCOSEFINGE 70 116* 120* 97 Exam: Gen: AAOx3, responsive. HEENT: Head at/nc. CV: RRR. S1, S2 normal. No murmurs, rubs or gallops appreciated. Lungs: CTAB in anterior and posterior lung godwin. No wheezes or crackles. Abd: Bowel sounds normoactive. Epigastric/LUQ tenderness and guarding. Hernia repair scar palpated in RUQ. Several 1-2 cm nodules palpated in LUQ; splenic edge not palpated due to pt reporting pain. Ext: No leg edema. Skin: No overtly concerning lesions/rashes. Data Review: Labs: - Glucose of 54 upon arrival yesterday PM; most recently at 81. - WBC of 1.50 this AM (0.94 yesterday PM; baseline is 1.4-2). - Hb of 11.3, Hct of 34.8. - Platelets at 57 (baseline is 55-80). - INR: 1.2. - Lipase, ALT/AST/Alk Phos wnl. Other Studies: - CT abdomen showed cirrhosis, portal HTN, and a decrease in the size of the splenic vein thrombus;no other significant changes from prior imaging. - Elevated IgA on rheumatology workup. - SPEP (11/08/2016) demonstrated MGUS, increased kappa:lambda light chain ratio. Assessment/Problems: This is a 56 yo female with a PMH of NAFLD, chronic leukopenia and thrombocytopenia, and thrombosisof proximal portal and splenic veins, who has a recent history of multiple syncopal events most likely precipitated by hypoglycemia of unknown etiology. Pt's syncope could also be attributed to vasovagal reaction. Pt's epigastric/LUQ pain most likely due to acute worsening of pre-existing gastropathy. CT results indicate that her pain is likely not due to her portal and splenic vein thromboses. Differential diagnosis includes acute gastritis, PUD, pancreatitis (but lipase wnl), and malingering (suspected drug- seeking behavior). Plan: 1) Epigastric/LUQ pain: pt has splenomegaly; should consult hematology to R/O potential causes of LUQ pain. Assuming gastropathy: - Tramadol 50 mg, q6h prn (avoiding opioids due to history of drug-seeking behavior) - Continue pantoprazole. - Continue ondansetron 4 mg, q4h prn 2) Hypoglycemia: determine the etiology with a 72 hour fast; if insulinoma, positive for Whipple triad: 1) symptoms brought on by fasting, 2) blood glucose <50 during symptoms, and 3) glucose administration brings relief of symptoms. - Her syncopal episodes seem to be most likely due to recurrent hypoglycemia or vasovagal reaction - Consider lab testing for serum insulin, C-peptide and glucose when symptoms occur - Dextrose 50% 25 g, IV, prn - Consider endocrinology consult. 3) Leukopenia/thrombocytopenia: continue to follow WBCs and PLTs, monitor for signs of infection. - SPEP to f/u MGUS and determine if pt is progressing to multiple myeloma - Hematology consult to determine etiology of neutropenia 4) Cirrhosis: pt should be connected to GI outpatient and possibly receive a liver biopsy to determine etiology of cirrhosis. 5) Hypothyroidism: - Continue levothyroxine. VTE Prophylaxis: Ambulate Discharge Plan: Uncertain at this time Oni Cabrera 02/22/2017 9:03 * Josefina Beckford MD - 02/21/20172050 EDT Medicine Admitting H&P Admit date:02/21/2017 CC: epigastric pain, syncope HPI: 56-year-old female with history of [place], cirrhosis, pancytopenia due to hypersplenism, MGUS, hypothyroidism, recurrent syncope, thrombosis of portal and splenic veins (diagnosed November, not on anticoag) presenting with several episodes of syncope and worsening chronic epigastric pain. Pt states that she has experienced epigastric pain since November when she was diagnosed with splenic and portal vein thromboses; pain is progressively worsening. Pt was told she could not have anticoag due to herlow platelets. Also with chronic bilateral flank pain (recent neg CT renal colic, has had lithotripsy in past). Pt states that earlier today she was walking and became lightheaded. She was able to get to the ground, unsure if she lost consciousness. No head trauma. Patient states this episode is similar to the episodes that she has been frequently having when she becomes hypoglycemic, often down to the 30s. Pt often has her neighbors check her blood sugar (they are DM) Seen at [facility] [place] with syncope, found to be 2/2 hypoglycemia. She also underwent a CT abdomen and pelvis which showed stable proximal portal vein and distal splenic vein thromboses, cirrhotic changes in liver. Patient was also seen by her cash teller in November with abdominal pain and oral lesions. She was given a course of acyclovir. EGD was performed which revealed erosive gastropathy(unremarkable biopsy) and portal hypertensive gastropathy. In the ED, pt noted to have stable vitals. Labs were notable for her baseline in the leukopenia (somewhat worse than it usually is), thrombus cytopenia. Patient was not anemic. Glucose was 54 on admission. Labs were otherwise not remarkable. CT abdomen and pelvis results below. Patient was admittedfor management of her hypoglycemia and splenic/portal vein thromboses Patient currently states that her abdominal pain is present at baseline as is her back/flank pain. Currently denies fevers, chills, chest pain, shortness of breath although she states she has experienced all the symptoms recently PMHx / PSHx - reviewed in [facility], notable for the items listed above and multiple abdominal surgeries. Rest of history at the end of this document ROS: A ten point review of systems was performed. Pertinent positives are listed aboove all others are negative Objectives: Temp: [36.3 ??C (97.3 ??F)] (), Pulse: -- (), Resp: [21] (), BP: -- (), SpO2: [98 %] () Gen : AAO NAD HEENT normocephalic, atraumatic, sclerae anicteric Heart: Regular rate and rhythm, no murmur appreciated Lungs: Clear in anterior godwin Abdomen: Multiple surgical scars, stretch connolly, diffuse mild tenderness to palpation worse over epigastrium, palpable spleen and liver, no peritoneal signs, soft, nondistended Extremities: Warm well perfused no edema Neuro: No deficits noted Skin: Not jaundiced Labs: WBC/Hgb/Hct/Plts: 0.94/11.8/35.6/59 (02/21 1731) Na/K/Cl/CO2: 145/3.6/107/30 (02/21 1731) BUN/Cr/glu/ALT/AST/amyl/lip: 13/0.84/--/24/19/--/89 (02/21 1731) lipase nl Microbiology: none Imaging: Ct ap Impression: 1. Stigmata of cirrhosis and portal hypertension with hepatosplenomegaly. 2. 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 Nonspecific stranding at the level of the duodenum and pancreatic head, not significantly changed from prior. Findings could still conceivably reflect the duodenitis in the absence of lipase elevation. No drainable collections. 4. Prior cholecystectomy, hysterectomy, appendectomy, mesh abdominal wall hernia repair 5. Atherosclerosis. Assessment and Plan: 56-year-old female with medical history most notable for MACHADO/cirrhosis, chronic leukopenia thrombocytopenia (thought to be 2/2 her hypersplenia, last bone marrow bx 2012), splenic and portal vein thromboses, recurrent hypoglycemic episodes, MGUS presenting with what appears to be chronic alterations in consciousness for recurrent hypoglycemia as well as chronic abdominal pain that this presumably due to untreated portal and splenic vein thromboses Splenic and portal vein thromboses : discovered in November. Patient was apparently told by her physicians that she was not a candidate for anticoagulation in the setting of thrombocytopenia. However,given the extent of her clot burden and ongoing symptoms, reconsideration of more definitive managem ent for these thromboses as indicated - Consult hematology and gastroenterology in a.m. - Patient notably recently moved to [place] and would like all her care moved from [facility] to here Abdominal pain : Chronic, presumably due to her thromboses versus her known portal hypertensive gastropathy and erosions - bid ppi - hold iron Hypoglycemia : Presumably due to hepatic dysfunction and impaired gluconeogenesis - q4 fingersticks, replete PRN MACHADO/cirrhosis : - continue rifaximin Chronic leukopenia/thrombocytopenia : due to hypersplenism - monitor, neutropenic precautions, hold anticoag/dvt ppx for tonight Hypothyroidism : continue Synthroid Diet: regular CODE: full DVT ppx: held as above Disposition: pending Micheal Valle MD 02/21/2017 21:44 02/21/2017 20:51 Past Medical History: Diagnosis Date ??? Asthma ??? Bleeding disorder ??? Cirrhosis of liver ??? Heartburn ??? Rheumatoid arthritis Past Surgical History: Procedure Laterality Date ??? APPENDECTOMY ??? CHOLECYSTECTOMY ??? HERNIA REPAIR ??? HYSTERECTOMY ??? KNEE SURGERY ??? TONSILLECTOMY Social History Substance Use Topics ??? Smoking status: Current Every Day Smoker Packs/day: 0.50 Years: 20.00 ??? Smokeless tobacco: Never Used ??? Alcohol use No Family hx: Asked, non contributory (Not in a hospital admission) Allergies Allergen Reactions ??? Morphine Anaphylaxis ??? Tylenol [Acetaminophen] Other (See Comments) Contraindication with medical hx ??? Toradol [Ketorolac] Shortness Of Breath ??? Aspirin Other (See Comments) Contraindication with medical hx ??? Reglan [Metoclopramide Hcl] Rash ??? Sulfa (Sulfonamide Antibiotics) Rash ATTENDING ATTESTATION: Date of service: 02/21/2017 I have interviewed and examined the patient. I personally reviewed laboratories studies, radiographic studies, ECG, and prior records. I discussed the case with: the medicine house staff team. I agree with and edited (in Blue) the findings and plan of care as documented in the note above. Josefina Beckford MD [facility] Inpatient Service 02/22/2017 1:07 documented in this encounter ED Notes * Brenda Ortiz RN - 02/21/2017 0863 EDT Pt taken to CT before oral contrast could be administered. Dr. Felix aware. * Brenda Ortiz, KENN - 02/21/20171951 EDT Pt requesting pain meds, Dr. Felix aware, no med orders at this time 2' to anaphylaxis with morphine * Opal Diez I - 02/21/2017 1852 EDT Opal Owusu, notified Dr. Felix of WBC 0.94 on 02/21/2017 at 18:52. * Gio Felix MD - 02/21/2017 1817 EDT DOS: 02/21/2017 Chief Complaint Patient presents with ??? Abdominal Pain c/o's of upper abdominal pain waxing and waning with episodes of sharp pain associated with SOB. additionally reports increasing weakness over last few days with syncope x2 today. hx of liver disease. HPI HPI Comments: I, Loraine Lemon, am scribing for Gio Felix MD while he/she is personally performing the service. Loraine Lemon 02/21/2017 18:18 Tara Boothe is a 56 y.o. female with a history of NAFLD, pancytopenia, pyelonephritis, and diagnosis of blood clots in liver and spleen in November who presents to the ED with waxing and waning epigastric abdominal pain for the past 2 months that worsened today. She states that the pain is sharp, is associated with SOB, and began radiating to her lower back today. She states that the past 5 days she has experienced fatigue and weakness, so she has been laying in bed. She states that she passed out 5 times this afternoon while moving around her house, so she decided to present to the ED. She endorses left leg pain after fallin on her side during one syncopal episode. She states that has fallen in the past 2 days, which she has associated to a drop in blood sugar. She endorses nausea, insomnia, and worsening and more frequent lightheadedness. She endorses increased nausea after consuming solids and fluids. Lab and imaging results: No prior thrombus in splenic vein. Fat straning in duodenium, normal lipase, so thought it was duodinitis. Non-occlusive splenic vein thrombosis, viewed again in Dec. Social history: the patient endorse smoking and alcohol consumption. The history is provided by the patient and medical records. Abdominal Pain Pain location: Epigastric Pain quality: sharp Pain radiates to: Back Pain severity: Severe Onset quality: Gradual Timing: Constant Progression: Worsening Chronicity: New Context: eating, retching and trauma Associated symptoms: anorexia, fatigue, nausea and shortness of breath Associated symptoms: no vomiting Review of Systems Review of Systems Constitutional: Positive for activity change, appetite change and fatigue. Respiratory: Positive for shortness of breath. Gastrointestinal: Positive for abdominal pain, anorexia and nausea. Negative for vomiting. Musculoskeletal: Positive for arthralgias and gait problem. Skin: Positive for color change and wound. Neurological: Positive for dizziness, syncope, weakness and light-headedness. All other systems reviewed and [...] Sulfa (Sulfonamide Antibiotics) Rash Vital Signs Temp: 35.6 ??C (96.1 ??F) Temp src: Tympanic Heart Rate: 75 BPM Cardiac Rhythm: Normal sinus rhythm Resp: 18 SpO2: 98 % SpCO: (!) 21 % BP: (!) 150/71 BP Device: BP Machine Patient Position: Sitting BP Cuff Location: Left arm O2 Device: None (Room air) Physical Exam Constitutional: She is oriented to person, place, and time. She appears well- developed and well-nourished. No distress. HENT: Head: Normocephalic and atraumatic. Right Ear: External ear normal. Left Ear: External ear normal. Very dry mucous membranes. Nose dry. No hemotympanum. Eyes: Pupils are equal, round, and reactive to light. Neck: Normal range of motion. Cardiovascular: Normal rate and regular rhythm. Pulmonary/Chest: Effort normal and breath sounds normal. Abdominal: Soft. There is tenderness. Rare bowel sounds. Slight epigastric tenderness. Obese abdomen. Musculoskeletal: She exhibits no edema. 4 cm X 2 cm Yellow and purple bruise over left lower ribs. Neurological: She is alert and oriented to person, place, and time. No cranial nerve deficit. She exhibits normal muscle tone. Coordination normal. Skin: Skin is warm and dry. No rash noted. She is not diaphoretic. Psychiatric: She has a normal mood and affect. Nursing note and vitals reviewed. RESULTS EKG orders: EKG 12-LEAD Radiology orders: CT ABDOMEN, PELVIS W CONTRAST ED Lab Results Labs Reviewed HEMAGRAM AND DIFFERENTIAL - Abnormal Result Value Status WBC 0.94 (*) Final RDW-CV 14.8 (*) Final PLT 59 (*) Final ABS Neutrophils 0.57 (*) Final ABS Lymphs 0.27 (*) Final ABS Monocytes 0.07 (*) Final RBC 4.15 Final Hemoglobin 11.8 Final HCT 35.6 Final MCV 86 Final MCH 28.4 Final MCHC 33.1 Final RDW-SD 46.5 Final MPV 10.6 Final Neutrophils 61.0 Final Lymphocytes 29.0 Final Monocytes 7.0 Final Eosinophils 3.0 Final ABS Eosinophils 0.03 Final Toxic Granulation Present Final Type of Diff: Manual Final URINALYSIS AND MICROSCOPIC - Abnormal Blood, UA Trace (*) Final Squam Epithel, UA Few (*) Final Color, UA Yellow Final Clarity, UA Clear Final Glucose, UA Neg Final Bilirubin, UA Neg Final Ketones, UA Neg Final Specific [place], Urine 1.015 Final pH, UA 6.0 Final Protein, UA Neg Final Urobilinogen, UA 0.2 Final Nitrite, UA Neg Final Leuk Esterase Neg Final WBC, UA None seen Final RBC, UA less than 1 Final Renal Epithel, UA None seen Final Bacteria, UA None seen Final Crystals, UA None seen Final Casts, UA None seen Final UA Comment Microscopic results Final Mucus, UA Present Final GLUCOSE, SERUM - Abnormal Glucose, Serum 54 (*) Final GLUCOSE, GLUCOMETER - Abnormal Glucose, Fingerstick 116 (*) Final Poundmaster ID [id number] Final HOLD BLUE TOP Hold Blue Top Final Value: Unable to test specimen: Underfilled tube submitted. Resubmit properly filled tube. HOLD GREEN TOP Hold Green Top Final Value: Hold for further testing. Specimen will be held for 5 days. HOLD PURPLE TOP Hold Purple Top Final Value: EDTA for hematology will be discarded after 48 hours, differential not available after 12 hours. HOLD SST Hold SST Final Value: Hold for further testing. Specimen will be held for 5 days. ED/URGENT CARE ADD-ON Tests to be added Final Value: LIVER PANEL,LIPASE,HEMAGRAM WITH DIFFERENTIAL,ELECTROLYTES,BUN AND CREATININE Number for problems [id number] (ED) Final BUN BUN 13 Final CREATININE Creatinine 0.84 Final GFR, Calculated 78 Final LIPASE Lipase 89 Final HEPATIC FUNCTION PANEL (ALB,ALK PHOS,ALT,AST,DBIL,TOT LUIS,TOT PROT) Albumin 4.0 Final Total Protein 6.9 Final Total Alkaline Phosphatase 121 Final ALT 24 Final AST 19 Final Unconjugated Bilirubin 0.0 Final Conjugated Bilirubin 0.0 Final Bilirubin, Total <0.5 Final ELECTROLYTES Sodium 145 Final Potassium 3.6 Final Chloride 107 Final CO2 30 Final GLUCOSE, GLUCOMETER Glucose, Fingerstick 70 Final Poundmaster ID [id number] Final INPATIENT ADD-ON Tests to be added GLUCOSE, SERUM Final Accession number [id number] Final HEMAGRAM AND DIFFERENTIAL POCT GLUCOSE POCT GLUCOSE POCT GLUCOSE Relevant Data Procedures ED COURSE A medical screening exam was performed. The patient is a 56 year old who presents to the ED with worsening sharp epigastric pain that she has experienced for the past 2 months. She endorses recent falls and 5 episodes of syncope today. Physical exam was significant for no edema, Rare bowel sounds. Slight epigastric tenderness. Obese abdomen. Yellow and purple bruise over left lower ribs. Very dry mucous membranes. Nose dry. No hemotympanum. Patient had an EKG performed upon arrival to the ED which was reviewed and interpreted by myself. Sinus rhythm, rate 88, normal intervals, unchanged compared to prior. Patient had labs that were reviewed independently by myself, significant for WBC count 0.94, glucose 70, absolute neutrofil count 0.57, and toxic granulations present. The patient was administered 1L IV fluids and 4 mg IV zofran. A Plain CT was ordered to rule out retroperitoneal bleed from fall. 02/21/2017 20:27 Hospitalist was consulted and informed of lab findings. 02/21/2017 20:36 On reevaluation, the patient was informed of labs and that she will be admitted. Sheedorses severe abdominal pain and states that although she has an allergic reaction to Morphine, she is able to take dilaudid. Patient had a CT abdomen and pelvis w contrast, which was significant for Continue presence of splenic thrombus and continue thickening of duodnem. No abscess. further details. The patient was admitted to internal medicine under Dr. Beckford. ASSESSMENT AND PLAN Final diagnoses: Pancytopenia Neutropenia, unspecified type Epigastric pain Vasovagal syncope DISPOSITION: Admitted The patient's pain was managed to an adequate level weighing risk vs. benefit of further medications. Upon departure from the Emergency Department, the patient's pain was 7 on a zero to ten scale. Condition at departure from the Emergency Department: Serious PCP: Provider None MDM This documentation is recorded by Loraine Lemon acting as Scribe under the direction and presence of Gio Felix MD. Gio Felix MD: I personally performed the services recorded by the scribe in my presence. I confirm the scribe's documentation has been reviewed by me to accurately and completely record my work, treatment, procedures, and medical decision making. 02/22/2017 0:45 No flowsheet data found. * Katherin Moreno - 02/21/2017 3025 EDT 12 Lead EKG Performed by Katherin Moreno and shown to Gio Felix MD. documented in this encounter Miscellaneous Notes * Plan of Care - Karol Mejia, RN - 02/23/2017 0410 EDT Problem: Daily Care Plan Goals Goal: Care Plan Documentation Outcome: Ongoing 02/22/172235 Care Plan Focus Area of Focus Other Goal This Shift Pt's BG will remain >70 this shift Data: Pt with hypoglycemia test in progress, (pt NPO but H2O ok). Pt's BG assessed Q2-4 hrs. Action: Pt's VS obtained, BG screening Q2-4 hrs. Pt's 0200 BP found to be 74/42, Stephon PHIPPS notified, 1 L NS ordered and administered. Response: Pt resting comfortably, BG >70, NS infusing. Will continue to monitor and adjust interventions as needed. * Plan of Care - Kimberley Nazario RN - 02/22/2017 1829 EDT Problem: Daily Care Plan Goals Goal: Care Plan Documentation Outcome: Met This Shift 02/22/17 0855 Care Plan Focus Area of Focus Pain/ Comfort Goal This Shift pain <8/10 Data: pt reports 8/10 pain in her middle abdomen and radiates to her left side and back. She also reports nausea. Pt has history of hypoglycemia and is currently asymptomatic. Action: X1 now of iv zofran was given for nausea also po 5 mg of oxy given @ 0916 and X1 now of 5mgoxy po given at 1132 see MAR. New orders for prn tramadol and oxy removed. Pt is NPO with water ok.Pt is q4 BGFS to monitor before pt becomes 70 or symptomatic. Prn dextrose orders if needed Response: pt reported 0/10 pain after oxy po was given. Pt has not requested more pain medications since the 1132 dose. Pt's BGFS have been above 70 will continue to monitor and intervene as necessary. Kimberley Nazario RN 02/22/2017 18:24 * Plan of Care - Hi Edmond RN - 02/21/2017 2306 EDT Problem: Daily Care Plan Goals Goal: Care Plan Documentation Outcome: Met This Shift 02/21/17 2200 Care Plan Focus Area of Focus Education Goal This Shift Pt will be oriented to unit Focus: Education Packet D: Pt admitted to [place] [id number] @ 2155. A: Patient oriented to room and use of call can[facility]. [facility] 4 welcome packet containing map, menu, ???Call Someone Now?? pamphlet, advanced directives information,[facility] falls prevention information, provided to and reviewed with patient. R: Call [facility]: Pt demonstrates appropriate use. Advance Directives: Pt does not have advanced directives but would like assistance completing them. Fall Precautions and: Call Someone Now Pt verbalizes understanding of printed materials. Hi Edmond RN 02/21/2017 23:05 documented in this encounter Plan of Treatment Upcoming Encounters Date Type Department Care Team (Late st Contact Info) Description 01/04/2025 13:00 EST Office Visit [facility] Ophthalmology - [address] [phone] Gagandeep Rome MD [address] [place] [address] 5 [place] [phone] 02/11/2025 13:30 EDT Telemedicine [facility] Hematology & Oncology - [address] [phone] Dana Padilla MD [address] [place] [address] 2 [place] [address] Scheduled Referrals Name Type Priority Associated Diagnoses Order Schedule AMB CONS/FOLLOW UP HEMATOLOGY Outpatient Referral Routine Pancytopenia (CMS-HCC) (HCC-CMS) Splenic vein thrombosis Ordered: 02/23/2017 AMB CONS/FOLLOW UP GASTROENTEROLOGY Outpatient Referral Routine 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) Splenic vein thrombosis Ordered: 02/23/2017 documented as of this encounter Procedures Procedure Name Priority Date/Time Associated Diagnosis Comments ECG REPORT - SCANNED 02/25/2017 10:09 EDT INPATIENT ADD-ON Routine 02/23/2017 15:5 5 EDT CORTISOL, STIMULATION 60 MINUTES Routine 02/23/2017 15:31 EDT INPATIENT ADD-ON Routine 02/23/2017 15:2 5 EDT GLUCOSE, GLUCOMETER Routine 02/23/2017 1 5:04 EDT HCV RNA QUANT WITH REFLEX TO GENOTYPE Routine 02/23/2017 15:00 EDT GENOTYPE Routine 02/23/2017 15:00 EDT CORTISOL, STIMULATION 30 MINUTE Routine 02/23/2017 15:00 EDT T3, TOTAL Routine 02/23/2017 15:00 EDT TSH Routine 02/23/2017 15:00 EDT T4 FREE Routine 02/23/2017 15:00 EDT ACTH, PLASMA STAT 02/23/2017 14:23 EDT ALDOSTERONE, SERUM Routine 02/23/2017 14 :23 EDT CORTISOL, STIMULATION BASELINE Routine 02/23/2017 14:23 EDT INPATIENT ADD-ON Routine 02/23/2017 13:3 0 EDT GLUCOSE, GLUCOMETER Routine 02/23/2017 1 0:01 EDT INPATIENT ADD-ON Routine 02/23/2017 9:40 EDT COMPLETE BLOOD COUNT Routine 02/23/2017 6:46 EDT CREATININE Routine 02/23/2017 6:46 EDT CORTISOL Routine 02/23/2017 6:46 EDT ELECTROLYTES Routine 02/23/2017 6:46 EDT GLUCOSE, GLUCOMETER Routine 02/23/2017 6 :05 EDT GLUCOSE, GLUCOMETER Routine 02/23/2017 2 :01 EDT GLUCOSE, GLUCOMETER Routine 02/22/2017 2 2:04 EDT GLUCOSE, GLUCOMETER Routine 02/22/2017 2 0:14 EDT GLUCOSE, GLUCOMETER Routine 02/22/2017 1 8:11 EDT INPATIENT ADD-ON Routine 02/22/2017 17:2 0 EDT GLUCOSE, GLUCOMETER Routine 02/22/2017 1 6:22 EDT INPATIENT ADD-ON Routine 02/22/2017 11:5 0 EDT GLUCOSE, GLUCOMETER Routine 02/22/2017 1 1:41 EDT PROTIME Routine 02/22/2017 7:32 EDT INPATIENT ADD-ON Routine 02/22/2017 7:20 EDT COMPLETE BLOOD COUNT AND DIFFERENTIAL Routine 02/22/2017 7:05 EDT GLUCOSE, GLUCOMETER Routine 02/22/2017 6 :29 EDT GLUCOSE, GLUCOMETER Routine 02/22/2017 1 :42 EDT GLUCOSE, GLUCOMETER Routine 02/21/2017 2 2:16 EDT INPATIENT ADD-ON Routine 02/21/2017 21:[address] ABDOMEN, PELVIS W CONTRAST STAT 02/21/2017 20:52 EDT DRUG SCREEN 6 Routine 02/21/2017 20:31 EDT URINE CHEMICAL (DIP) & SEDIMENT (MICRO) WITHOUT REFLEX TO CULTURE Routine 02/21/2017 20:31 EDT GLUCOSE, GLUCOMETER Routine 02/21/2017 1 9:26 EDT ED/URGENT CARE ADD-ON STAT 02/21/2017 18:40 EDT EKG 12-LEAD STAT 02/21/2017 17:47 EDT HCV RNA DETECT QUANT Routine 02/21/2017 17:31 EDT HOLD SST STAT 02/21/2017 17:31 EDT HOLD PURPLE TOP STAT 02/21/2017 17:31 EDT HOLD GREEN TOP STAT 02/21/2017 17:31 EDT HOLD BLUE TOP STAT 02/21/2017 17:31 EDT HEPATITIS C AB W REFLEX TO HCV RNA BY PCR Routine 02/21/2017 17:31 EDT METHYLMALONIC ACID Routine 02/21/2017 17 :31 EDT COMPLETE BLOOD COUNT AND DIFFERENTIAL Routine 02/21/2017 17:31 EDT HIV 1/2 ANTIGEN AND ANTIBODY, 4TH GENERATION Routine 02/21/2017 17:31 EDT BUN Routine 02/21/2017 17:31 EDT LIPASE Routine 02/21/2017 17:31 EDT HEMOGLOBIN A1C Routine 02/21/2017 17:31 EDT GLUCOSE, SERUM Routine 02/21/2017 17:31 EDT FOLATE Routine 02/21/2017 17:31 EDT VITAMIN B12 Routine 02/21/2017 17:31 EDT CREATININE Routine 02/21/2017 17:31 EDT ETHANOL, BLOOD Routine 02/21/2017 17:31 EDT HEPATIC FUNCTION PANEL (ALB,ALK PHOS,ALT,AST,DBIL,TOT LUIS,TOT PROT) Routine 02/21/2017 17:31 EDT ELECTROLYTES Routine 02/21/2017 17:31 EDT documented in this encounter Results * ECG REPORT - SCANNED (02/25/2017 10:09 EDT) 02/25/2017 10:0 9 EDT us Scan 2 Rn Child PROCEDURE/MINOR SURGICAL OR DERABLES Final Result * INPATIENT ADD-ON (02/23/2017 15:55 EDT) Tests to be added PLEASE ADD ALDOSTERONE LEVEL TO LAB DRAW FROM 14:37 (02/23/2017) 02/23/2017 15:54 EDT [facility] Number for problems [id number] 02/23/2017 16:02 EDT [facility] Accession number ALDOS TO [id number] 02/23/2017 16:02 EDT [facility] TOPOGRAPHY UNKNOWN / Unknown 02/23/2017 15:55 EDT 02/23/2017 16:01 EDT us Angela Snyder MD HEMATOLOGY & PF4 ORDERABLES Final Result Performing Organization Address City/[facility]/ZIP Co de Phone Number [facility] [address] [place] [address] * CORTISOL, ACTH STIMULATION, 60 MINUTE (02/23/2017 15:31 EDT) Jackson, ACTH stim 60min 19 ug/dl 02/23/2017 17:32 EDT [facility] Comment:60 min. Blood specimen (specimen) BLOOD SPECIMEN / Unknown 02/23/2017 15:31 EDT 02/23/2017 15:57 EDT us Angela Snyder MD CHEMISTRY & BLOOD GAS ORDERA BLES Final Result Performing Organization Address City/[facility]/ZIP Co de Phone Number [facility] [address] [place] [address] * INPATIENT ADD-ON (02/23/2017 15:25 EDT) Tests to be added T3 02/23/2017 15:20 EDT [facility] Comment:TSH,FREE T4 Number for problems [id number] 02/23/2017 15:45 EDT [facility] Accession number [id number] 02/23/2017 15:45 EDT [facility] TOPOGRAPHY UNKNOWN / Unknown 02/23/2017 15:25 EDT 02/23/2017 15:45 EDT Ebenezer Qiu MD HEMATOLOGY & PF4 ORDERABL ES Final Result Performing Organization Address City/[facility]/ZIP Co de Phone Number [facility] [address] [place] [address] * GLUCOSE, GLUCOMETER (02/23/2017 15:04 EDT) Glucose, Fingerstick 77 70 - 100 mg/dl 02/23/2017 15:06 EDT [facility] [place] [id number] 02/23/2017 15:06 EDT [facility] Comment:[facility] BLOOD SPECIMEN / Unknown 02/23/2017 15:04 EDT 02/23/2017 15:06 EDT Ebenezer Qiu MD CHEMISTRY & BLOOD GAS ORD ERABLES Final Result Performing Organization Address City/[facility]/ZIP Co de Phone Number [facility] [address] [place] [address] * GENOTYPE (02/23/2017 15:00 EDT) Genotype Hepatitis C Virus Genotype Not Performed. 02/25/2017 10:17 EDT [facility] Comment: Specimens for HCV genotype must have a viral load of > or = 15 IU/mL. BLOOD SPECIMEN / Unknown 02/23/2017 15:00 EDT 02/23/2017 15:08 EDT Ebenezer Qiu MD CHEMISTRY & BLOOD GAS ORD ERABLES Final Result [facility] [address] [place] [address] * TSH (02/23/2017 15:00 EDT) TSH 1.14 0.55 - 4.78 uIU/ml 02/23/2017 19:13 EDT [facility] BLOOD SPECIMEN / Unknown 02/23/2017 15:00 EDT 02/23/2017 15:25 EDT us Angela Snyder MD CHEMISTRY & BLOOD GAS ORDERA BLES Final Result Performing Organization Address [facility]/ZIP Co de Phone Number [facility] [address] [place] [address] * T3, TOTAL (02/23/2017 15:00 EDT) T3, Total 113 60 - 181 ng/dl 02/23/2017 19:10 EDT [facility] BLOOD SPECIMEN / Unknown 02/23/2017 15:00 EDT 02/23/2017 15:25 EDT us Angela Snyder MD CHEMISTRY & BLOOD GAS ORDERA BLES Final Result Performing Organization Address City/[facility]/ZIP Co de Phone Number [facility] [address] [place] [address] * T4 FREE (02/23/2017 15:00 EDT) Free T4 1.2 0.8 - 1.8 ng/dl 02/23/2017 19:10 EDT [facility] BLOOD SPECIMEN / Unknown 02/23/2017 15:00 EDT 02/23/2017 15:25 EDT us Angela Snyder MD CHEMISTRY & BLOOD GAS ORDERA BLES Final Result Performing Organization Address City/[facility]/ZIP Co de Phone Number [facility] [address] [place] [address] * HCV RNA QUANT WITH REFLEX TO GENOTYPE (02/23/2017 15:00 EDT) [facility] HCV RNA Detect Quant Undetected Undetected IU/mL 02/25/2017 10:14 EDT [facility] Comment: Reference Range: ??Undetected The quantification range of this assay is 15 IU/mL to 100,000,000 IU/mL. Testing was performed by the [employer]/Pamela TaqMan HCV v2.0 ([employer] Blood specimen (specimen) BLOOD SPECIMEN / Unknown 02/23/2017 15:00 EDT 02/23/2017 15:08 EDT Ebenezer Qiu MD CHEMISTRY & BLOOD GAS ORD ERABLES Final Result Performing Organization Address [facility] Co de Phone Number [facility] [address] [place] [address] * CORTISOL, ACTH STIMULATION, 30 MINUTE (02/23/2017 15:00 EDT) [facility] Jackson, ACTH Stim 30min 18 ug/dl 02/23/2017 17:32 EDT [facility] Comment:30 min. Blood specimen (specimen) BLOOD SPECIMEN / Unknown 02/23/2017 15:00 EDT 02/23/2017 15:25 EDT us Angela Snyder MD CHEMISTRY & BLOOD GAS ORDERA BLES Final Result Performing Organization Address [facility] Co de Phone Number [facility] [address] [place] [address] * ALDOSTERONE, SERUM (02/23/2017 14:23 EDT) [facility] Aldosterone, Serum 4.1 <=21 ng/dL 02/25/2017 12:31 EDT [facility] Comment: (Note) . ADDITIONAL INFORMATION Reference range for patients 11 years and older is based on upright A.M. collection from subjects without sodium restrictions. This test was developed and its performance characteristics determined by [facility] in a manner consistent with CLIA requirements. This test has not been cleared or approved by the U.S. Food and Drug Administration. Performed by: [facility]: [address], [place] [address], Lab Dir: Serene Stanford II, M.D., Ph.D. BLOOD SPECIMEN / Unknown 02/23/2017 14:23 EDT 02/23/2017 14:37 EDT Angela Snyder MD CHEMISTRY & BLOOD GAS ORDERA BLES Final Result Performing Organization Address [facility] de Phone Number [facility] [address] [place] [address] * (ABNORMAL) ACTH, PLASMA (02/23/2017 14:23 EDT) [facility] Adrenocorticotropic Hormone, P <5.0(L) pg/mL 02/25/2017 8:24 EDT [facility] Comment: (Note) . REFERENCE VALUE 10-60 (a.m. collection) Performed by: [facility]: [address], [place] [address], Lab Dir: Serene Stanford II, M.D., Ph.D. Blood specimen (specimen) BLOOD SPECIMEN / Unknown 02/23/2017 14:23 EDT 02/23/2017 14:37 EDT Angela Snyder MD CHEMISTRY & BLOOD GAS ORDERA BLES Final Result Performing Organization Address [facility] de Phone Number [facility] [address] [place] [address] * CORTISOL, ACTH STIMULATION, BASELINE (02/23/2017 14:23 EDT) Jackson, ACTH Stim Base 2 ug/dl 02/23/2017 17:32 EDT [facility] Comment: Baseline:4.3-22.4 peaks at 30-60 min. minimal response > or = to 7 ug/dl increment above baseline. Blood specimen (specimen) BLOOD SPECIMEN / Unknown 02/23/2017 14:23 EDT 02/23/2017 14:37 EDT Angela Snyder MD CHEMISTRY & BLOOD GAS ORDERA BLES Final Result Performing Organization Address [facility] Co de Phone Number [facility] [address] [place] [address] * INPATIENT ADD-ON (02/23/2017 13:30 EDT) Tests to be added ALDOSTERONE, ACTH (ADD ON TO MORNING LABS) 02/23/2017 13:28 EDT [facility] Number for problems [id number] 02/23/2017 13:40 EDT [facility] Accession number ALDOS TO [id number], INFORMED GORGE ON SB4 CANNOT ADDON ACTHN FOR THE EDTA LAV TUBE NEEDS TO BE COOLED BEFORE DRAWING THE PATIENT, THEN PLACED ON ICE, AND THEN CENTRIFUGED SPECIALLY. PATIENT WILL NEED TO BE RECOLLECTED FOR THIS TEST WITH A NEW ORDER 4.5.17 AT 1334 LMT 02/23/2017 13:40 EDT [facility] TOPOGRAPHY UNKNOWN / Unknown 02/23/2017 13:30 EDT 02/23/2017 13:35 EDT Angela Snyder MD HEMATOLOGY & PF4 ORDERABLES Final Result Performing Organization Address [facility] Co de Phone Number [facility] [address] [place] [address] * (ABNORMAL) GLUCOSE, GLUCOMETER (02/23/2017 10:01 EDT) Glucose, Fingerstick 147(H) 70 - 100 mg/dl 02/23/2017 10:02 EDT [facility] [place] [id number] 02/23/2017 10:02 EDT [facility] Comment:Test [facility] BLOOD SPECIMEN / Unknown 02/23/2017 10:01 EDT 02/23/2017 10:02 EDT us Ebenezer Qiu MD CHEMISTRY & BLOOD GAS ORD ERABLES Final Result Performing Organization Address City/[facility]/ZIP Co de Phone Number [facility] [address] [place] [address] * INPATIENT ADD-ON (02/23/2017 9:40 EDT) Tests to be added CORTISOL 02/23/2017 9:37 EDT [facility] Number for problems [id number] 02/23/2017 9:55 EDT [facility] Accession number [id number] 02/23/2017 9:55 EDT [facility] TOPOGRAPHY UNKNOWN / Unknown 02/23/2017 9:40 EDT 02/23/2017 9:54 EDT us Angela Snyder MD HEMATOLOGY & PF4 ORDERABLES Final Result Performing Organization Address [facility] Co de Phone Number [facility] [address] [place] [address] * CORTISOL (02/23/2017 6:46 EDT) Cortisol 3 ug/dl 02/23/2017 11:15 EDT [facility] Comment: Reference Range: a.m. = 4.3-22.4 p.m. = 3.1-16.7 BLOOD SPECIMEN / Unknown 02/23/2017 6:46 EDT 02/23/2017 7:34 EDT us Marisela Cunningham MD CHEMISTRY & BLOOD GAS ORDER YANN Final Result Performing Organization Address City/[facility]/ZIP Co de Phone Number [facility] [address] [place] [address] * CREATININE (02/23/2017 6:46 EDT) Creatinine 0.78 0.52 - 1.04 mg/dl 02/23/2017 8:19 EDT [facility] GFR, Calculated 85 >60 ml/min/1.7 3m2 02/23/2017 8:19 EDT [facility] Comment: eGFR calculated using CKD-EPI equation for non Americans. Multiply eGFR by 1.16 for Americans. Blood specimen (specimen) BLOOD SPECIMEN / Unknown 02/23/2017 6:46 EDT 02/23/2017 7:34 EDT Marisela uCnningham MD CHEMISTRY & BLOOD GAS ORDER YANN Final Result Performing Organization Address [facility] de Phone Number [facility] [address] [place] [address] * ELECTROLYTES (02/23/2017 6:46 EDT) Sodium 140 136 - 145 mEq/L 02/23/2017 8:19 EDT [facility] Potassium 4.1 3.5 - 5.0 mEq/L 02/23/2017 8:19 [facility] Chloride 106 96 - 110 mEq/L 02/23/2017 8:19 [facility] CO2 28 22 - 32 mEq/L 02/23/2017 8:19 [facility] Blood specimen (specimen) BLOOD SPECIMEN / Unknown 02/23/2017 6:46 EDT 02/23/2017 7:34 EDT Marisela Cunningham MD CHEMISTRY & BLOOD GAS ORDER YANN Final Result Performing Organization Address [facility] de Phone Number [facility] [address] [place] [address] * (ABNORMAL) HEMAGRAM (02/23/2017 6:46 EDT) WBC 1.06(L) 4.0 - 12.4 K/cmm 02/23/2017 7:53 T [facility] RBC 3.81(L) 3.86 - 5.04 M/cmm 02/23/2017 7:53 [facility] Hemoglobin 10.7(L) 11.6 - 15.2 gm/dl 02/23/2017 7:53 [facility] HCT 32.1(L) 34.9 - 44.4 % 02/23/2017 7:53 T [facility] MCV 84 81 - 98 fl 02/23/2017 7:53 EDT [facility] MCH 28.1 26.7 - 33.3 pg 02/23/2017 7:53 T [facility] MCHC 33.3 32.1 - 35.9 gm/dl 02/23/2017 7:53 T [facility] RDW-CV 14.5 11.7 - 14.6 % 02/23/2017 7:53 T [facility] RDW-SD 44.7 37.6 - 50.3 fl 02/23/2017 7:53 [facility] PLT 51(L) 141 - 377 K/cmm 02/23/2017 7:53 [facility] MPV 10.6 9.5 - 12.7 fl 02/23/2017 7:53 T [facility] Blood specimen (specimen) BLOOD SPECIMEN / Unknown 02/23/2017 6:46 EDT 02/23/2017 7:34 EDT us Marisela Cunningham MD HEMATOLOGY & PF4 ORDERABLES Final Result [facility] [address] [place] [address] * GLUCOSE, GLUCOMETER (02/23/2017 6:05 EDT) Glucose, Fingerstick 85 70 - 100 mg/dl 02/23/2017 6:09 EDT [facility] [place] [id number] 02/23/2017 6:09 EDT [facility] Comment:Test [facility] BLOOD SPECIMEN / Unknown 02/23/2017 6:05 EDT 02/23/2017 6:09 EDT us Ebenezer Qiu MD CHEMISTRY & BLOOD GAS ORD ERABLES Final Result [facility] [address] [place] [address] * GLUCOSE, GLUCOMETER (02/23/2017 2:01 EDT) Glucose, Fingerstick 83 70 - 100 mg/dl 02/23/2017 2:05 EDT [facility] [place] [id number] 02/23/2017 2:05 EDT [facility] Comment:Test Performed by [facility] BLOOD SPECIMEN / Unknown 02/23/2017 2:01 EDT 02/23/2017 2:05 EDT Ebenezer Qiu MD CHEMISTRY & BLOOD GAS ORD ERABLES Final Result Performing Organization Address City/[facility]/ZIP Co de Phone Number [facility] [address] [place] [address] * GLUCOSE, GLUCOMETER (02/22/2017 22:04 EDT) Glucose, Fingerstick 82 70 - 100 mg/dl 02/22/2017 22:05 EDT [facility] [place] [id number] 02/22/2017 22:05 EDT [facility] Comment:Test Performed by [facility] Services BLOOD SPECIMEN / Unknown 02/22/2017 22:04 EDT 02/22/2017 22:05 EDT Ebenezer Qiu MD CHEMISTRY & BLOOD GAS ORD ERABLES Final Result [facility] [address] [place] [address] * GLUCOSE, GLUCOMETER (02/22/2017 20:14 EDT) Glucose, Fingerstick 83 70 - 100 mg/dl 02/22/2017 20:19 EDT [facility] [place] ID [id number] 02/22/2017 20:19 EDT [facility] Comment:Test Performed by [facility] BLOOD SPECIMEN / Unknown 02/22/2017 20:14 EDT 02/22/2017 20:19 EDT Ebenezer Qiu MD CHEMISTRY & BLOOD GAS ORD ERABLES Final Result [facility] [address] [place] [address] * GLUCOSE, GLUCOMETER (02/22/2017 18:11 EDT) Glucose, Fingerstick 86 70 - 100 mg/dl 02/22/2017 18:17 EDT [facility] [place] [id number] 02/22/2017 18:17 EDT [facility] Comment:Test Performed by [facility] BLOOD SPECIMEN / Unknown 02/22/2017 18:11 EDT 02/22/2017 18:17 EDT us Ebenezer Qiu MD CHEMISTRY & BLOOD GAS ORD ERABLES Final Result Performing Organization Address City/[facility]/ZIP Co de Phone Number [facility] [address] [place] [address] * INPATIENT ADD-ON (02/22/2017 17:20 EDT) Tests to be added HEPATITIS C AB WITH REFLEX TO QUANTITATIVE HEP C RNA PCR AND GENOTYPE 02/22/2017 17:18 EDT [facility] Number for problems [id number] 02/22/2017 17:24 EDT [facility] Accession number [id number] PER DR SNYDER OK TO ADD TO SAMPLE FROM [id number] 02/22/2017 17:24 EDT [facility] TOPOGRAPHY UNKNOWN / Unknown 02/22/2017 17:20 EDT 02/22/2017 17:35 EDT us Angela Snyder MD HEMATOLOGY & PF4 ORDERABLES Final Result [facility] [address] [place] [address] * GLUCOSE, GLUCOMETER (02/22/2017 16:22 EDT) Glucose, Fingerstick 81 70 - 100 mg/dl 02/22/2017 16:23 EDT [facility] [place] [id number] 02/22/2017 16:23 EDT [facility] Comment:Test Performed by rsing Services BLOOD SPECIMEN / Unknown 02/22/2017 16:22 EDT 02/22/2017 16:23 EDT Ebenezer Qiu MD CHEMISTRY & BLOOD GAS ORD ERABLES Final Result Performing Organization Address City/[facility]/ZIP Co de Phone Number [facility] [address] [place] [address] * INPATIENT ADD-ON (02/22/2017 11:50 EDT) Tests to be added PLEASE ADD URINE TOX 6 TO URINE SAMPLE FROM LAST NIGHT. THANKS 02/22/2017 11:50 EDT [facility] Number for problems [id number] 02/22/2017 11:57 EDT [facility] Accession number [id number] 02/22/2017 11:57 EDT [facility] TOPOGRAPHY UNKNOWN / Unknown 02/22/2017 11:50 EDT 02/22/2017 11:57 EDT Ebenezer Qiu MD HEMATOLOGY & PF4 ORDERABL ES Final Result Performing Organization Address [facility] Co de Phone Number [facility] [address] [place] [address] * GLUCOSE, GLUCOMETER (02/22/2017 11:41 EDT) Glucose, Fingerstick 94 70 - 100 mg/dl 02/22/2017 11:43 EDT [facility] [place] [id number] 02/22/2017 11:43 EDT [facility] Comment:[facility] BLOOD SPECIMEN / Unknown 02/22/2017 11:41 EDT 02/22/2017 11:43 EDT Ebenezer Qiu MD CHEMISTRY & BLOOD GAS ORD ERABLES Final Result Performing Organization Address City/[facility]/ZIP Co de Phone Number [facility] [address] [place] [address] * (ABNORMAL) PROTIME (02/22/2017 7:32 EDT) Pro Time 14.7(H) 10.3 - 13.1 secs 02/22/2017 8:11 EDT [facility] I.N.R. 1.2(H) 0.9 - 1.1 Ratio 02/22/2017 8:11 EDT [facility] Comment: Moderate Intensity Coumadin INR = 2.0-3.0 Adjustments in anticoagulant therapy dose should be based upon the INR and NOT the Pro Time. Blood specimen (specimen) BLOOD SPECIMEN / Unknown 02/22/2017 7:32 EDT 02/22/2017 7:53 EDT us Ebenezer Qiu MD HEMATOLOGY & PF4 ORDERABL ES Final Result Performing Organization Address [facility] de Phone Number [facility] [address] [place] [address] * INPATIENT ADD-ON (02/22/2017 7:20 EDT) [facility] Tests to be added ETOH, METHYLMALONIC ACID LEVEL, HIV AB, HGA1C 02/22/2017 7:19 EDT [facility] Comment:B12,FOLATE Number for problems [id number] 02/22/2017 8:02 EDT [facility] Accession number [id number] OK TO USE SAMPLE FROM YESTERDAY PER DR QIU 8AM 4.4 AG 02/22/2017 8:02 EDT [facility] TOPOGRAPHY UNKNOWN / Unknown 02/22/2017 7:20 EDT 02/22/2017 8:01 EDT us Ebenezer Qiu MD HEMATOLOGY & PF4 ORDERABL ES Final Result Performing Organization Address [facility] Co de Phone Number [facility] [address] [place] [address] * (ABNORMAL) HEMAGRAM AND DIFFERENTIAL (02/22/2017 7:05 EDT) WBC 1.50(L) 4.0 - 12.4 K/cmm 02/22/2017 8:03 [facility] RBC 4.03 3.86 - 5.04 M/cmm 02/22/2017 8:03 [facility] Hemoglobin 11.3(L) 11.6 - 15.2 gm/dl 02/22/2017 8:03 [facility] HCT 34.8(L) 34.9 - 44.4 % 02/22/2017 8:03 [facility] MCV 86 81 - 98 fl 02/22/2017 8:03 [facility] MCH 28.0 26.7 - 33.3 pg 02/22/2017 8:03 [facility] MCHC 32.5 32.1 - 35.9 gm/dl 02/22/2017 8:03 [facility] RDW-CV 14.9(H) 11.7 - 14.6 % 02/22/2017 8:03 [facility] RDW-SD 47.4 37.6 - 50.3 fl 02/22/2017 8:03 [facility] PLT 57(L) 141 - 377 K/cm 02/22/2017 8:03 [facility] MPV 10.8 9.5 - 12.7 fl 02/22/2017 8:03 [facility] Neutrophils 62.0 % 02/22/2017 8:56 [facility] Lymphocytes 27.0 % 02/22/2017 8:56 [facility] Monocytes 9.0 % 02/22/2017 8:56 [facility] Eosinophils 1.0 % 02/22/2017 8:56 [facility] Basophils 1.0 % 02/22/2017 8:56 [facility] ABS Neutrophils 0.91(L) 2.20 - 8.85 K/cm 02/22/2017 8:56 [facility] ABS Lymphs 0.41(L) 1.09 - 3.30 K/cm 02/22/2017 8:56 [facility] ABS Monocytes 0.14 0.1 - 0.8 K/cm 02/22/2017 8:56 EDT [facility] ABS Eosinophils 0.02(L) 0.03 - 0.61 /[facility] 02/22/2017 8:56 EDT [facility] ABS Basophils 0.02 0.01 - 0.11 /[facility] 02/22/2017 8:56 EDT [facility] Type of Diff: Manual 02/22/2017 8:56 EDT [facility] Blood specimen (specimen) BLOOD SPECIMEN / Unknown 02/22/2017 7:05 EDT 02/22/2017 7:42 EDT us Micheal Valle MD PACKAGES & DNA PROBE OR DERABLES Final Result Performing Organization Address [facility] Co de Phone Number [facility] [address] [place] [address] * GLUCOSE, GLUCOMETER (02/22/2017 6:29 EDT) Glucose, Fingerstick 97 70 - 100 mg/dl 02/22/2017 6:33 EDT [facility] [place] [id number] 02/22/2017 6:33 EDT [facility] Comment:Test Performed by Nu rsing Services BLOOD SPECIMEN / Unknown 02/22/2017 6:29 EDT 02/22/2017 6:33 EDT us Josefina Beckford MD MPH CHEMISTRY & BLOOD GAS ORDERABLES Final Result Performing Organization Address City/[facility]/ZIP Co de Phone Number [facility] [address] [place] [address] * (ABNORMAL) GLUCOSE, GLUCOMETER (02/22/2017 1:42 EDT) Glucose, Fingerstick 120(H) 70 - 100 mg/dl 02/22/2017 1:45 EDT [facility] [place] [id number] 02/22/2017 1:45 EDT [facility] Comment:Test Performed by Nu rsing Services BLOOD SPECIMEN / Unknown 02/22/2017 1:42 EDT 02/22/2017 1:45 EDT us Josefina Beckford MD MPH CHEMISTRY & BLOOD GAS ORDERABLES Final Result Performing Organization Address [facility]/ZIP Co de Phone Number [facility] [address] [place] [address] * (ABNORMAL) GLUCOSE, GLUCOMETER (02/21/2017 22:16 EDT) Glucose, Fingerstick 116(H) 70 - 100 mg/dl 02/21/2017 22:17 EDT [facility] [place] [id number] 02/21/2017 22:17 EDT [facility] Comment:Test Performed by [facility] BLOOD SPECIMEN / Unknown 02/21/2017 22:16 EDT 02/21/2017 22:17 EDT us Josefina Beckford MD MPH CHEMISTRY & BLOOD GAS ORDERABLES Final Result Performing Organization Address [facility] Co de Phone Number [facility] [address] [place] [address] * INPATIENT ADD-ON (02/21/2017 21:05 EDT) Tests to be added GLUCOSE, SERUM 02/21/2017 21:02 EDT [facility] Accession number [id number] 02/21/2017 21:42 EDT [facility] TOPOGRAPHY UNKNOWN / Unknown 02/21/2017 21:05 EDT 02/21/2017 21:41 EDT us Micheal Valle MD HEMATOLOGY & PF4 ORDERA BLES Final Result Performing Organization Address City/[facility]/ZIP Co de Phone Number [facility] [address] [place] [address] * CT ABDOMEN, PELVIS W CONTRAST (02/21/2017 20:52 EDT) Anatomical Region Laterality Modality Other 02/21/2017 20:5 2 EDT 02/22/2017 10:24 EDT Narrative 02/22/2017 10:[address] ABDOMEN, PELVIS W CONTRAST ??02/21/2017 8:52 PM Signs and Symptoms/Comments: ?? pt with epigastric pain , prior ct without contrast showed possible duodenitis but did not have ??contrast, pt with low wbc, neutropenic, and low [...] lesion in the dome of the liver. Dr. Fredrick Campo discussed these findings with GIO FELIX MD at 02/21/2017 9:13 PM. I have personally reviewed the images and the above interpretation and agree with the findings. Procedure Note Brandy Zhao MD - 02/22/2017 CT ABDOMEN, PELVIS W CONTRAST 02/21/2017 8:52 [...] lesion in the dome of the liver. Dr. Fredrick Campo discussed these findings with GIO FELIX MD at 02/21/2017 9:13 PM. I have personally reviewed the images and the above interpretation and agree with the findings. us Gio Felix MD IMG CT ORDERABLES Final Result * DRUG SCREEN 6 (02/21/2017 20:31 EDT) Amphetamine Screen, Urine Negative screen. 02/22/2017 13:14 [facility] Comment: Confirmation testing available upon request. Suitable for medical purposes only. Will not detect all drugs within class. Cutoff = 1000 ng/ml Specimen type is urine. Barbiturate Screen, Urine Negative screen. 02/22/2017 13:14 [facility] Comment: Confirmation testing available upon request. Suitable for medical purposes only. Will not detect all drugs within class. Cutoff = 300 ng/ml Specimen type is urine. Benzodiazepine Screen, Urine Presumptive positive, interpret with caution. 02/22/2017 13:14 [facility] Comment: Confirmation testing available upon request. Suitable for medical purposes only. Will not detect all drugs within class. Assay less sensitive to Lorazepam and metabolites. Cutoff = 200 ng/ml Specimen type is urine. Cannabinoid Scrn, Ur Negative screen. 02/22/2017 13:14 EDT [facility] Comment: Confirmation testing available upon request. Suitable for medical purposes only. Will not detect all drugs within class. Cutoff = 50 ng/ml Specimen type is urine. Opiate Scrn, Ur Presumptive positive, interpret with caution. 02/22/2017 13:14 EDT [facility] Comment: Confirmation testing available upon request. Suitable for medical purposes only. Will not detect all drugs within class. Cutoff = 300 ng/ml Assay less sensitive to oxycodone and metabolites. Assay does not detect methadone. Specimen type is urine. Cocaine Metabolites, Ur Negative screen. 02/22/2017 13:14 T [facility] Comment: Confirmation testing available upon request. Suitable for medical purposes only. Will not detect all drugs within class. Cutoff = 300 ng/ml Specimen type is urine. URINE / Unknown 02/21/2017 2 0:31 EDT 02/21/2017 20:39 EDT us Gio Felix MD URINALYSIS ORDERABLES Final Res ult [facility] [address] [place] [address] * (ABNORMAL) URINALYSIS AND MICROSCOPIC (02/21/2017 20:31 EDT) Color, UA Yellow 02/21/2017 20:54 T [facility] Clarity, UA Clear 02/21/2017 20:54 [facility] Glucose, UA Neg Neg 02/21/2017 20:54 T [facility] Bilirubin, UA Neg Neg 02/21/2017 20:54 [facility] Ketones, UA Neg Neg 02/21/2017 20:54 [facility] Specific [place], Urine 1.015 1.001 - 1.035 02/21/2017 20:54 [facility] Blood, UA Trace(A) Neg 02/21/2017 20:54 T [facility] pH, UA 6.0 4.6 - 8.0 02/21/2017 20:54 [facility] Protein, UA Neg Neg 02/21/2017 20:54 T [facility] Urobilinogen, UA 0.2 0.2 - 1.0 E.U./dl 02/21/2017 20:54 [facility] Nitrite, UA Neg Neg 02/21/2017 20:54 [facility] Leuk Esterase Neg Neg 02/21/2017 20:54 [facility] WBC, UA None seen 0 - 5 /HPF 02/21/2017 20:54 EDT [facility] RBC, UA less than 1 0 - 5 /HPF 02/21/2017 20:54 [facility] Squam Epithel, UA Few(A) None seen /HPF 02/21/2017 20:54 [facility] Renal Epithel, UA None seen None seen /HPF 02/21/2017 20:54 [facility] Bacteria, UA None seen None seen /HPF 02/21/2017 20:54 [facility] Crystals, UA None seen /HPF 02/21/2017 20:54 [facility] Hyaline Casts, UA None seen /LPF 02/21/2017 20:54 [facility] UA Comment Microscopic results 02/21/2017 20:24 [facility] Comment: are unreliable on urines unrefrig >2hrs or refrig >8hrs. Mucus, UA Present 02/21/2017 20:54 [facility] Urine specimen (specimen) URINE / Unknown 02/21/2017 20:31 EDT 02/21/2017 20:39 EDT us Gio Felix MD URINALYSIS ORDERABLES Final Res ult [facility] [address] [place] [address] * GLUCOSE, GLUCOMETER (02/21/2017 19:26 EDT) Glucose, Fingerstick 70 70 - 100 mg/dl 02/21/2017 19:26 [facility] [place] ID [id number] 02/21/2017 19:26 EDT [facility] Comment:Test Performed by [facility] BLOOD SPECIMEN / Unknown 02/21/2017 19:26 EDT 02/21/2017 19:27 EDT us Provider Unknown CHEMISTRY & BLOOD GAS ORDERA BLES Final Result Performing Organization Address [facility] Co de Phone Number [facility] [address] [place] [address] * ED/URGENT CARE ADD-ON (02/21/2017 18:40 EDT) Tests to be added LIVER PANEL,LIPASE,H EMAGRAM WITH DIFFERENTIAL,E LECTROLYTES,BU N AND CREATININE 02/21/2017 18:39 EDT [facility] Number for problems [id number] (ED) 02/21/2017 18:39 EDT [facility] TOPOGRAPHY UNKNOWN / Unknown 02/21/2017 18:40 EDT 02/21/2017 18:44 EDT us Gio Felix MD HEMATOLOGY & PF4 ORDERABLES Fin al Result Performing Organization Address [facility] Co de Phone Number [facility] [address] [place] [address] * EKG 12-LEAD (02/21/2017 17:47 EDT) 02/21/2017 17:4 7 EDT Narrative [facility] - 02/23/2017 14:08 EDT ?[facility] ? Test Date: ?2017-02-21 Pat Name: ? PHYLISS BOOTHE ?Department: ?? ED ? Room: ? GT28 Gender: ? F ?Choke Setter: ?? [id number] : ?1960 ? Requested By: VALARIE Camacho Order Number: [id number] ? Jose MD: ?? SERENE DIOP MD ? Measurements Intervals ?[place] ? Rate: ? 88 ? P: ?48 NE: ? 152 ?QRS: ?58 QRSD: ? 97 ? T: ?43 QT: ? 367 ? QTc: ?446 ? Interpretive Statements SINUS RHYTHM MILD NONSPECIFIC T-WAVE ABNORMALITY Compared to ECG 02/01/2017 19:34:39 No significant changes Edited by FRANCK MOY MD on 02-23-17 06:05:50 EDT. I reviewed the tracing and have either agreed or edited the findings in this report. Electronically Signed On 02-23-17 14:08:38 EDT by SERENE DIOP MD. Procedure Note Serene Diop MD - 02/23/2017 [facility] Test Date: 2017-02-21 Pat Name: TARA BOOTHE Department: [facility] Gender: F Choke Setter: [id number] : 1960 Requested By: VALARIE Camacho Order Number: [id number] Reading MD: SERENE DIOP MD Measurements Intervals [place] Rate: 88 P: 48 NE: 152 QRS: 58 QRSD: 97 T: 43 QT: 367 QTc: 446 Interpretive Statements SINUS RHYTHM MILD NONSPECIFIC T-WAVE ABNORMALITY Compared to ECG 02/01/2017 19:34:39 No significant changes Edited by FRANCK MOY MD on 02-23-17 06:05:50 EDT. I reviewed the tracing and have either agreed or edited the findings inthis report. Electronically Signed On 02-23-17 14:08:38 EDT by SERENE SKINNER. us Araceli Fountain PA-C CARDIAC ECG ORDERABLES Final Result Performing Organization Address City/[facility]/ZIP Co de Phone Number [facility] * HCV RNA DETECT QUANT (02/21/2017 17:31 EDT) HCV RNA Detect Quant Insufficient sample for reflex testing. Resubmit sample Hepatitis C RNA by PCR. Undetected IU/mL [facility] BLOOD SPECIMEN / Unknown 02/21/2017 17:31 EDT 02/21/2017 17:46 EDT us Araceli Fountain PA-C CHEMISTRY & BLOOD GAS ORDERA BLES Final Result Performing Organization Address City/[facility]/ZIP Co de Phone Number [facility] [address] [place] [address] * (ABNORMAL) HEPATITIS C ANTIBODY (02/21/2017 17:31 EDT) Pathologist [facility] Hep C Ab w Rfx PCR Reactive(A ) Negative 02/23/2017 11:46 EDT [facility] Comment: Supplemental testing for HCV RNA is ordered to rule out active infection. Reference Range: ??Negative BLOOD SPECIMEN / Unknown 02/21/2017 17:31 EDT 02/21/2017 17:46 EDT Araceli ELDRIDGE-C CHEMISTRY & BLOOD GAS ORDERA BLES Final Result Performing Organization Address [facility] Co de Phone Number [facility] [address] [place] [address] * METHYLMALONIC ACID (02/21/2017 17:31 EDT) [facility] Methylmalonic Acid 0.27 <=0.40 nmol/mL 02/25/2017 8:24 EDT [facility] Comment: (Note) . ADDITIONAL INFORMATION This test was developed and its performance characteristics determined by [facility] in a manner consistent with CLIA requirements. This test has not been cleared or approved by the U.S. Food and Drug Administration. Performed or Referred by: [facility], [address] [place] [id number], Lab Dir: Serene Stanford II, M.D., Ph.D. BLOOD SPECIMEN / Unknown 02/21/2017 17:31 EDT 02/21/2017 17:46 EDT us Araceli Fountain PA-C CHEMISTRY & BLOOD GAS ORDERA BLES Final Result Performing Organization Address [facility] Co de Phone Number [facility] [address] [place] [address] * HIV 1/2 ANTIBODY (02/21/2017 17:31 EDT) Pathologist [facility] HIV 1/2 Antibody Negative 02/23/20 12:51 EDT [facility] Comment: If acute HIV-1 infection is suspected in a high risk patient, submit plasma specimen for HIV-1 RNA quantification test. Reference Range: ??Negative Assayed utilizing [employer] chemiluminescent technology. BLOOD SPECIMEN / Unknown 02/21/2017 17:31 EDT 02/21/2017 17:46 EDT us Araceli Fountain PA-C IMMUNOLOGY AND SEROLOGY ORDE THERESA Final Result Performing Organization Address [facility] Co de Phone Number [facility] [address] [place] [address] * HEMOGLOBIN A1C (02/21/2017 17:31 EDT) Hemoglobin A1C 5.4 % 02/22/2017 15:11 EDT [facility] Comment: Reference Range: <5.7% Normal 5.7-6.4% Increased risk for diabetes =>6.5% Diagnostic for diabetes (if confirmed) The A1c goal for non adults in general is <7%. The A1c goal for selected patients may be significantly lower than 7% if this can be achieved without significant hypoglycemia or other adverse effects of treatment. Est Avg Glucose 108 mg/dl 7 15:11 EDT [facility] Comment: eAG represents the A1c result expressed as average glucose in mg/dl. BLOOD SPECIMEN / Unknown 02/21/2017 17:31 EDT 02/21/2017 17:46 EDT us Araceli Fountain PA-C CHEMISTRY & BLOOD GAS ORDERA BLES Final Result Performing Organization Address [facility] Co de Phone Number [facility] [address] [place] [address] * FOLATE (02/21/2017 17:31 EDT) Folate 5.0 ng/ml 02/22/2017 14:22 EDT [facility] Comment: Deficient: ??Less than 3.4 ng/mL Indeterminate: ??3.4-5.4 ng/mL Normal: ??Greater than 5.4 ng/mL BLOOD SPECIMEN / Unknown 02/21/2017 17:31 EDT 02/21/2017 17:46 EDT us Araceli ELDRIDGE-[place] CHEMISTRY & BLOOD GAS ORDERA BLES Final Result Performing Organization Address [facility]/ZIP Co de Phone Number [facility] [address] [place] [address] * ETHANOL, BLOOD (02/21/2017 17:31 EDT) Ethanol <10 <10 mg/dl 02/22/2017 11:30 EDT [facility] Comment: Interpret results with caution. Prolonged sample storage may alter result. BLOOD SPECIMEN / Unknown 02/21/2017 17:31 EDT 02/21/2017 17:46 EDT us Araceli ELDRIDGE-C CHEMISTRY & BLOOD GAS ORDERA BLES Final Result Performing Organization Address [facility] Co de Phone Number [facility] [address] [place] [address] * VITAMIN B12 (02/21/2017 17:31 EDT) Vitamin B-12 343 211 - 911 pg/ml 02/22/2017 13:42 EDT [facility] BLOOD SPECIMEN / Unknown 02/21/2017 17:31 EDT 02/21/2017 17:46 EDT us Araceli Fountain PA-C CHEMISTRY & BLOOD GAS ORDERA BLES Final Result Performing Organization Address City/[facility]/ZIP Co de Phone Number [facility] [address] [place] [address] * (ABNORMAL) GLUCOSE, SERUM (02/21/2017 17:31 EDT) Glucose, Serum 54(L) 70 - 100 mg/dl 02/21/2017 21:54 EDT [facility] BLOOD SPECIMEN / Unknown 02/21/2017 17:31 EDT 02/21/2017 17:46 EDT us Araceli Fountain PA-C CHEMISTRY & BLOOD GAS ORDERA BLES Final Result Performing Organization Address [facility] Co de Phone Number [facility] [address] [place] [address] * ELECTROLYTES (02/21/2017 17:31 EDT) Sodium 145 136 - 145 mEq/L 02/21/2017 18:55 EDT [facility] Potassium 3.6 3.5 - 5.0 mEq/L 02/21/2017 18:55 EDT [facility] Comment: Interpret results with caution. Prolonged sample storage may alter result. Chloride 107 96 - 110 mEq/L 02/21/2017 18:55 EDT [facility] CO2 30 22 - 32 mEq/L 02/21/2017 18:55 EDT [facility] Comment: Interpret results with caution. Prolonged sample storage may alter result. BLOOD SPECIMEN / Unknown 02/21/2017 17:31 EDT 02/21/2017 17:46 EDT Araceli Fountain PA-C CHEMISTRY & BLOOD GAS ORDERA BLES Final Result Performing Organization Address [facility] Co de Phone Number [facility] [address] [place] [address] * HEPATIC FUNCTION PANEL (ALB,ALK PHOS,ALT,AST,DBIL,TOT LUIS,TOT PROT) (02/21/2017 17:31 EDT) Albumin 4.0 3.4 - 4.9 g/dl 02/21/2017 18:55 EDT [facility] Total Protein 6.9 6.3 - 8.2 g/dl 02/21/2017 18:55 T [facility] Total Alkaline Phosphatase 121 38 - 126 U/L 02/21/2017 18:55 T [facility] ALT 24 <53 U/L 02/21/2017 18:55 T [facility] AST 19 15 - 46 U/L 02/21/2017 18:55 EDT [facility] Unconjugated Bilirubin 0.0 0.0 - 1.1 mg/dl 02/21/2017 18:55 EDT [facility] Conjugated Bilirubin 0.0 0.0 - 0.3 mg/dl 02/21/2017 18:55 EDT [facility] Bilirubin, Total <0.5 <1.4 mg/dl 02/22/20 17 18:55 EDT [facility] BLOOD SPECIMEN / Unknown 02/21/2017 17:31 EDT 02/21/2017 17:46 EDT us Araceli Fountain PA-C CHEMISTRY & BLOOD GAS ORDERA BLES Final Result Performing Organization Address City/[facility]/ZIP Co de Phone Number [facility] [address] [place] [address] * LIPASE (02/21/2017 17:31 EDT) Lipase 89 <251 U/L 02/21/2017 18:55 EDT [facility] BLOOD SPECIMEN / Unknown 02/21/2017 17:31 EDT 02/21/2017 17:46 EDT us Araceli Fountain PA-C CHEMISTRY & BLOOD GAS ORDERA BLES Final Result Performing Organization Address [facility] Co de Phone Number [facility] [address] [place] [address] * CREATININE (02/21/2017 17:31 EDT) Creatinine 0.84 0.52 - 1.04 mg/dl 02/21/2017 18:55 EDT [facility] GFR, Calculated 78 >60 ml/min/1.7 3m2 02/21/2017 18:55 EDT [facility] Comment: eGFR calculated using CKD-EPI equation for non Americans. Multiply eGFR by 1.16 for Americans. BLOOD SPECIMEN / Unknown 02/21/2017 17:31 EDT 02/21/2017 17:46 EDT us Araceli ELDRIDGE-C CHEMISTRY & BLOOD GAS ORDERA BLES Final Result [facility] [address] [place] [address] * BUN (02/21/2017 17:31 EDT) BUN 13 10 - 26 mg/dl 02/21/2017 18:55 EDT [facility] BLOOD SPECIMEN / Unknown 02/21/2017 17:31 EDT 02/21/2017 17:46 EDT Araceli Fountain PA-C CHEMISTRY & BLOOD GAS ORDERA BLES Final Result Performing Organization Address City/State/[facility] Co de Phone Number [facility] [address] [place] [address] * (ABNORMAL) HEMAGRAM AND DIFFERENTIAL (02/21/2017 17:31 EDT) Pathologist [facility] WBC 0.94(LL) 4.0 - 12.4 K/cmm 02/21/2017 18:47 [facility] RBC 4.15 3.86 - 5.04 M/cmm 02/21/2017 18:47 [facility] Hemoglobin 11.8 11.6 - 15.2 gm/dl 02/21/2017 18:47 [facility] HCT 35.6 34.9 - 44.4 % 02/21/2017 18:47 [facility] MCV 86 81 - 98 fl 02/21/2017 18:47 [facility] MCH 28.4 26.7 - 33.3 pg 02/21/2017 18:47 [facility] MCHC 33.1 32.1 - 35.9 gm/dl 02/21/2017 18:47 [facility] RDW-CV 14.8(H) 11.7 - 14.6 % 02/21/2017 18:47 [facility] RDW-SD 46.5 37.6 - 50.3 fl 02/21/2017 18:47 [facility] PLT 59(L) 141 - 377 K/cmm 02/21/2017 18:47 [facility] MPV 10.6 9.5 - 12.7 fl 02/21/2017 18:47 [facility] Neutrophils 61.0 % 02/21/2017 19:15 [facility] Lymphocytes 29.0 % 02/21/2017 19:15 [facility] Monocytes 7.0 % 02/21/2017 19:15 [facility] Eosinophils 3.0 % 02/21/2017 19:15 [facility] ABS Neutrophils 0.57(L) 2.20 - 8.85 K/cmm 02/21/2017 19:15 [facility] ABS Lymphs 0.27(L) 1.09 - 3.30 K/cmm 02/21/2017 19:15 [facility] ABS Monocytes 0.07(L) 0.1 - 0.8 K/cmm 02/21/2017 19:15 [facility] ABS Eosinophils 0.03 0.03 - 0.61 K/cmm 02/21/2017 19:15 [facility] Toxic Granulation Present 02/21/2017 19:15 [facility] Type of Diff: Manual 02/21/2017 19:15 [facility] BLOOD SPECIMEN / Unknown 02/21/2017 17:31 EDT 02/21/2017 17:46 EDT us Araceli Fountain PA-C PACKAGES & DNA PROBE ORDERAB LES Final Result [facility] [address] [place] [address] * HOLD SST (02/21/2017 17:31 EDT) Hold SST Hold for further testing. Specimen will be held for 5 days. 02/21/2017 17:53 [facility] Blood specimen (specimen) BLOOD SPECIMEN / Unknown 02/21/2017 17:31 EDT 02/21/2017 17:46 EDT us Araceli E Brown PA-C LAB INFO SERVICE AND SUPPORT & PHONE RESULT Final Result Performing Organization Address City/[facility]/ZIP Co de Phone Number [facility] [address] [place] [address] * HOLD PURPLE TOP (02/21/2017 17:31 EDT) Hold Purple Top EDTA for hematology will be discarded after 48 hours, differential not available after 12 hours. 02/21/2017 17:48 EDT [facility] Blood specimen (specimen) BLOOD SPECIMEN / Unknown 02/21/2017 17:31 EDT 02/21/2017 17:46 EDT us Araceli SKINNERC LAB INFO SERVICE AND SUPPORT & PHONE RESULT Final Result Performing Organization Address [facility] Co de Phone Number [facility] [address] [place] [address] * HOLD GREEN TOP (02/21/2017 17:31 EDT) Hold Green Top Hold for further testing. Specimen will be held for 5 days. 02/21/2017 17:53 EDT [facility] Blood specimen (specimen) BLOOD SPECIMEN / Unknown 02/21/2017 17:31 EDT 02/21/2017 17:46 EDT us Araceli Fountain PA-C LAB INFO SERVICE AND SUPPORT & PHONE RESULT Final Result Performing Organization Address [facility] Co de Phone Number [facility] [address] [place] [address] * HOLD BLUE TOP (02/21/2017 17:31 EDT) Hold Blue Top Unable to test specimen: Underfilled tube submitted. Resubmit properly filled tube. 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 Thrombocytopenia (HCC-CMS) Thrombocytopenia, unspecified Hypoglycemia Hypoglycemia, unspecified Pancytopenia (HCC-CMS) Other pancytopenia Vasovagal syncope Syncope and collapse Neutropenia (HCC-CMS) Neutropenia, unspecified Epigastric pain Abdominal pain, epigastric Syncope Syncope and collapse Drug-seeking behavior Other, mixed, or unspecified nondependent drug abuse, unspecified documented in this encounter Administered Medications Inactive Administered Medications - up to 3 most recent administrations Medication Order MAR Action Action Date Dose Rate Site acetaminophen (TYLENOL) tablet 650 mg 650 mg, oral, NOW X1, 1 dose, On Tue02/23/17 at 0945, Routine Given 02/23/2017 10:00 EDT 650 mg albuterol inhaler 2 Puff 2 Puff, inhalation, EVERY 4 HOURS PRN, Starting on Tue02/21/17 at 2230, Until Tue02/23/17 at 2019, Wheezing, Routine ALPRAZolam (XANAX) tablet 1 mg 1 mg, oral, 3 TIMES DAILY, First dose on Tue02/21/17 at 2200, Until Discontinued, Routine Given 02/23/2017 14:22 EDT 1 mg Given 02/23/2017 8:56 EDT 1 mg Given 02/22/2017 20:12 EDT 1 mg cosyntropin (CORTROSYN) injection 0.25 mg 0.25 mg, intravenous, NOW X1, 1 dose, On Tue02/23/17 at 1345, Routine Given 02/23/2017 14:31 EDT 0.25 mg dextrose 5 %-0.45 % sodium chloride infusion at 150 mL/hr, intravenous, CONTINUOUS, Starting on Tue02/21/17 at 2030, Until Tue02/21/17 at 2152, STAT New Bag 02/21/2017 21:06 EDT 150 mL/hr dextrose 50 % solution 25 g 25 g, intravenous, PRN, Starting on Tue02/22/17 at 1228, Until Tue02/23/17 at 2019, Low Blood Sugar, Routine fluticasone (FLOVENT) 110 mcg/actuation inhaler 1 Puff 1 Puff, inhalation, 2 TIMES DAILY, First dose on Tue02/21/17 at 2200, Until Discontinued, Routine Given 02/23/2017 8:56 EDT 1 Puff Given 02/22/2017 20:12 EDT 1 Puff Given 02/22/2017 8:52 EDT 1 Puff HYDROmorphone (DILAUDID) 1 mg/mL injection 1 dose, Starting on Tue02/22/17 at 0154, Until Tue02/22/17 at 0157 HYDROmorphone (DILAUDID) injection 0.2 mg 0.2 mg, intravenous, EVERY 3 HOURS PRN, Starting on Tue02/22/17 at 0149, Until Tue02/22/17 at 0719, Pain, Routine Given 02/22/2017 4:39 EDT 0.2 mg Given 02/22/2017 1:57 EDT 0.2 mg HYDROmorphone (DILAUDID) injection 1 mg 1 mg, intravenous, NOW X1, 1 dose, On Tue02/21/17 at 2045, STAT Given 02/21/2017 21:06 EDT 1 mg levothyroxine (SYNTHROID) tablet 250 mcg 250 mcg, oral, DAILY BEFORE BREAKFAST, First dose on Tue02/22/17 at 0630, Until Discontinued Given 02/23/2017 6: 45 EDT 250 mcg Given 02/22/2017 6:24 EDT 250 mcg ondansetron (PF) (ZOFRAN) injection 4 mg 4 mg, intravenous, NOW X1, 1 dose, On Tue02/21/17 at 1845, STAT Given 02/21/2017 19:00 EDT 4 mg ondansetron (PF) (ZOFRAN) injection 4 mg 4 mg, intravenous, NOW X1, 1 dose, On Tue02/22/17 at 0930, Routine Given 02/22/2017 9:16 EDT 4 mg ondansetron (PF) (ZOFRAN) injection 4 mg 4 mg, intravenous, EVERY 4 HOURS PRN, Starting on Tue02/22/17 at 1140, Until Tue02/23/17 at 2019, Nausea, Routine Given 02/23/2017 14:40 EDT 4 mg ondansetron (ZOFRAN-ODT) disintegrating tablet 4 mg 4 mg, oral, EVERY 8 HOURS PRN, Starting on Tue02/21/17 at 2152, Until Tue02/22/17 at 1140, Nausea, Routine Given 02/22/2017 6:24 EDT 4 mg Given 02/21/2017 22:25 EDT 4 mg ondansetron (ZOFRAN-ODT) disintegrating tablet 4 mg 4 mg, oral, EVERY 4 HOURS PRN, Starting on Tue02/22/17 at 1140, Until Tue02/23/17 at 2019, Nausea, Routine oxyCODONE (ROXICODONE) immediate release tablet 5 mg 5 mg, oral, EVERY 6 HOURS PRN, Starting on Tue02/21/17 at 2231, Until Tue02/22/17 at 0149, Pain, Routine Given 02/21/2017 22:37 EDT 5 mg oxyCODONE (ROXICODONE) immediate release tablet 5 mg 5 mg, oral, NOW X1, 1 dose, On Tue02/22/17 at 0045, Routine Given 02/22/2017 0:32 EDT 5 mg oxyCODONE (ROXICODONE) immediate release tablet 5 mg 5 mg, oral, EVERY 6 HOURS PRN, Starting on Tue02/22/17 at 0857, Until Tue02/22/17 at 1117, Pain, Routine Given 02/22/2017 9:16 EDT 5 mg oxyCODONE (ROXICODONE) immediate release tablet 5 mg 5 mg, oral, NOW X1, 1 dose, On Tue02/22/17 at 1145, Routine Given 02/22/2017 11:32 EDT 5 mg pantoprazole (PROTONIX) tablet 40 mg 40 mg, oral, DAILY, First dose on Tue02/22/17 at 0900, Until Discontinued, Routine Given 02/23/2017 8:55 EDT 40 mg Given 02/22/2017 8:53 EDT 40 mg prochlorperazine edisylate (COMPAZINE) injection 5 mg 5 mg, intravenous, NOW X1, 1 dose, On 4/4/17 at 1145, Routine Given 02/22/2017 11:32 EDT 5 mg rifAXImin (XIFAXAN) tablet 550 mg 550 mg, oral, 2 TIMES DAILY, 14 doses, First dose on Tue02/21/17 at 2200, Last dose on Tue02/28/17 at 0900, Routine Given 02/23/2017 8:56 EDT 550 mg Given 02/22/2017 20:12 EDT 550 mg Given 02/22/2017 8:53 EDT 550 mg sodium chloride 0.9 % (NS) infusion at 125 mL/hr, 1,000 mL, intravenous, CONTINUOUS, Starting on Tue02/22/17 at 1215, Until Tue02/22/17 at 1438, Routine New Bag 02/22/2017 12:17 EDT 1,000 mL 125 mL/hr sodium chloride 0.9 % (NS) infusion at 125 mL/hr, 2,000 mL, intravenous, CONTINUOUS, Starting on Tue02/22/17 at 1500, Until Tue02/22/17 at 2016, Routine Rate Documented 02/22/2017 16:20 EDT 2,000 mL 125 mL/hr sodium chloride 0.9 % (NS) infusion at 100 mL/hr, 1,000 mL, intravenous, CONTINUOUS, Starting on Tue02/23/17 at 0245, Until Tue02/23/17 at 1315, Routine New Bag 02/23/2017 2:22 EDT 1,000 mL 100 mL/hr sodium chloride 0.9 % BOLUS 1,000 mL 1,000 mL, intravenous, NOW X1, 1 dose, On Tue02/21/17 at 1845, STAT New Bag 02/21/2017 19:00 EDT 1,000 mL sodium chloride 0.9 % flush 5 mL 5 mL, intravenous, NOW X1, 1 dose, On Tue02/23/17 at 1345, Routine Given 02/23/2017 14:31 EDT 5 mL documented in this encounter Discontinued Medications Medication Sig Discontinue Reason Start Date End Da te oxyCODONE (ROXICODONE) 5 mg immediate release tablet Take 1 Tab by mouth every 6 hours as needed for Pain. Daily Max: 20 mg Therapy completed 02/01/2017 02/21/2017 phenazopyridine (PYRIDIUM) 200 mg tablet Take 1 Tab by mouth 3 times daily as needed for Pain. Therapy completed 01/03/2017 02/21/2017 documented as of this encounter Active and Recently Administered Medications Times are shown in EDT. Scheduled Medication Order 02/21/2017 02/22/2017 02/23/2017 acetaminophen (TYLENOL) tablet 650 mg (COMPLETED) 650 mg, oral, NOW X1, 1 dose, On Tue02/23/17 at 0945, Routine 1000 (Given - Provider: Kimberley Nazario RN) ALPRAZolam (XANAX) tablet 1 mg 1 mg, oral, 3 TIMES DAILY, First dose on Tue02/21/17 at 2200, Until Discontinued, Routine 2225 (Given - Provider: Hi Edmond RN) 0853 (Given - Provider: Kimberley Nazario RN)1414 (Not Given - Provider: Kimberley Nazario RN - Reason: Patient/family refused)2011 (Given - Provider: Karol Mejia RN) 0856 (Given - Provider: Kimberley Nazario RN)1422 (Given - Provider: Kimberley Nazario RN) cosyntropin (CORTROSYN) injection 0.25 mg (COMPLETED)(Linked Group 1) 0.25 mg, intravenous, NOW X1, 1 dose, On Tue02/23/17 at 1345, Routine 1431 (Given - Provider: Kimberley Nazario RN) fluticasone (FLOVENT) 110 mcg/actuation inhaler 1 Puff 1 Puff, inhalation, 2 TIMES DAILY, First dose on Tue02/21/17 at 2200, Until Discontinued, Routine 2237 (Given - Provider: Hi Edmond RN) 0852 (Given - Provider: Kimberley Nazario RN)2011 (Given - Provider: Karol Mejia RN) 0856 (Given - Provider: Kimberley Nazario RN) HYDROmorphone (DILAUDID) injection 1 mg (COMPLETED) 1 mg, intravenous, NOW X1, 1 dose, On Tue02/21/17 at 2045, STAT 2106 (Given - Provider: Brenda Ortiz RN) levothyroxine (SYNTHROID) tablet 250 mcg 250 mcg, oral, DAILY BEFORE BREAKFAST, First dose on Tue02/22/17 at 0630, Until Discontinued 0624 (Given - Provider: Hi Edmond RN) 0645 (Given - Provider: Karol Mejia RN) ondansetron (PF) (ZOFRAN) injection 4 mg (COMPLETED) 4 mg, intravenous, NOW X1, 1 dose, On Tue02/21/17 at 1845, STAT 1900 (Given - Provider: Brenda Ortzi, KENN) ondansetron (PF) (ZOFRAN) injection 4 mg (COMPLETED) 4 mg, intravenous, NOW X1, 1 dose, On Tue02/22/17 at 0930, Routine 0916 (Given - Provider: Kimberley Nazario RN) oxyCODONE (ROXICODONE) immediate release tablet 5 mg (COMPLETED) 5 mg, oral, NOW X1, 1 dose, On Tue02/22/17 at 0045, Routine 0032 (Given - Provider: Hi Edmond RN) oxyCODONE (ROXICODONE) immediate release tablet 5 mg (COMPLETED) 5 mg, oral, NOW X1, 1 dose, On Tue02/22/17 at 1145, Routine 1132 (Given - Provider: Deepti Garcia, KENN) pantoprazole (PROTONIX) tablet 40 mg 40 mg, oral, DAILY, First dose on Tue02/22/17 at 0900, Until Discontinued, Routine 0853 (Given - Provider: Kimberley Nazario RN) 0855 (Given - Provider: Kimberley Nazario RN) prochlorperazine edisylate (COMPAZINE) injection 5 mg (COMPLETED) 5 mg, intravenous, NOW X1, 1 dose, On Tue02/22/17 at 1145, Routine 1132 (Given - Provider: Deepti Garcia RN) rifAXImin (XIFAXAN) tablet 550 mg 550 mg, oral, 2 TIMES DAILY, 14 doses, First dose on Tue02/21/17 at 2200, Last dose on Tue02/28/17 at 0900, Routine 2225 (Given - Provider: Hi Edmond RN) 0853 (Given - Provider: Kimberley Nazario RN)2011 (Given - Provider: Karol Mejia RN) 0856 (Given - Provider: Kimberley Nazario RN) sodium chloride 0.9 % BOLUS 1,000 mL (COMPLETED) 1,000 mL, intravenous, NOW X1, 1 dose, On Tue02/21/17 at 1845, STAT 1900 (New Bag - Provider: Brenda Ortiz RN) sodium chloride 0.9 % flush 5 mL (COMPLETED)(Linked Group 1) 5 mL, intravenous, NOW X1, 1 dose, On Tue02/23/17 at 1345, Routine 1431 (Given - Provider: Kimberley Nazario, KENN) Continuous Medication Order 02/21/2017 02/22/2017 02/23/2017 dextrose 5 %-0.45 % sodium chloride infusion (CANCELED) at 150 mL/hr, intravenous, CONTINUOUS, Starting on Tue02/21/17 at 2030, Until Tue02/21/17 at 2152, STAT 2106 (New Bag - Provider: Brenda Ortiz, KENN)2200 (Completed - Provider: Hi Edmond RN) sodium chloride 0.9 % (NS) infusion (CANCELED) at 125 mL/hr, 1,000 mL, intravenous, CONTINUOUS, Starting on Tue02/22/17 at 1215, Until Tue02/22/17 at 1438, Routine 1217 (New Bag - Provider: Deepti Garcia RN) sodium chloride 0.9 % (NS) infusion () at 125 mL/hr, 2,000 mL, intravenous, CONTINUOUS, Starting on Tue02/22/17 at 1500, Until Tue02/22/17 at 2016, Routine 1620 (Rate Documented - Provider: Kimberley Nazario RN) sodium chloride 0.9 % (NS) infusion (CANCELED) at 100 mL/hr, 1,000 mL, intravenous, CONTINUOUS, Starting on Tue02/23/17 at 0245, Until Tue02/23/17 at 1315, Routine 0222 (New Bag - Provider: Karol Mejia RN) PRN Medication Order 02/21/2017 02/22/2017 02/23/2017 albuterol inhaler 2 Puff 2 Puff, inhalation, EVERY 4 HOURS PRN, Starting on Tue02/21/17 at 2230, Until Tue02/23/17 at 2019, Wheezing, Routine dextrose 50 % solution 25 g 25 g, intravenous, PRN, Starting on Tue02/22/17 at 1228, Until Tue02/23/17 at 2019, Low Blood Sugar, Routine HYDROmorphone (DILAUDID) injection 0.2 mg (CANCELED) 0.2 mg, intravenous, EVERY 3 HOURS PRN, Starting on Tue02/22/17 at 0149, Until Tue02/22/17 at 0719, Pain, Routine 0157 (Given - Provider: Hi Edmond RN)0439 (Given - Provider: Hi Edmond RN) ondansetron (PF) (ZOFRAN) injection 4 mg(Linked Group 2) 4 mg, intravenous, EVERY 4 HOURS PRN, Starting on Tue02/22/17 at 1140, Until Tue02/23/17 at 2019, Nausea, Routine 1440 (Given - Provider: Kimberley Nazario RN) ondansetron (ZOFRAN-ODT) disintegrating tablet 4 mg (CANCELED) 4 mg, oral, EVERY 8 HOURS PRN, Starting on Tue02/21/17 at 2152, Until Tue02/22/17 at 1140, Nausea, Routine 2225 (Given - Provider: Hi Edmond RN) 0624 (Given - Provider: Hi Edmond RN) ondansetron (ZOFRAN-ODT) disintegrating tablet 4 mg(Linked Group 2) 4 mg, oral, EVERY 4 HOURS PRN, Starting on Tue02/22/17 at 1140, Until Tue02/23/17 at 2019, Nausea, Routine 1440 (See Alternativ e - Provider: Kimberley Nazario RN) oxyCODONE (ROXICODONE) immediate release tablet 5 mg (CANCELED) 5 mg, oral, EVERY 6 HOURS PRN, Starting on Tue02/21/17 at 2231, Until Tue02/22/17 at 0149, Pain, Routine 2237 (Given - Provider: Hi Edmond RN) oxyCODONE (ROXICODONE) immediate release tablet 5 mg (CANCELED) 5 mg, oral, EVERY 6 HOURS PRN, Starting on Tue02/22/17 at 0857, Until Tue02/22/17 at 1117, Pain, Routine 0916 (Given - Provider: Kimberley Nazario RN) Linked Groups Order Group 1: cosyntropin (CORTROSYN) injection 0.25 mg (COMPLETED)Jump to med 0.25 mg, intravenous, NOW X1, 1 dose, On Tue02/23/17 at 1345, Routine Followed by sodium chloride 0.9 % flush 5 mL (COMPLETED)Jump to med 5 mL, intravenous, NOW X1, 1 dose, On Tue02/23/17 at 1345, Routine Group 2: ondansetron (PF) (ZOFRAN) injection 4 mgJump to med 4 mg, intravenous, EVERY 4 HOURS PRN, Starting on Tue02/22/17 at 1140, Until Tue02/23/17 at 2019, Nausea, Routine Or ondansetron (ZOFRAN-ODT) disintegrating tablet 4 mgJump to med 4 mg, oral, EVERY 4 HOURS PRN, Starting on Tue02/22/17 at 1140, Until Tue02/23/17 at 2019, Nausea, Routine documented in this encounter Orders Medications Ordered That Luc ht Not Have Been Administered Count Last Ordered Date First Ordered Date dextrose 50 % solution 25 g 1 02/22/2017 ondansetron (PF) (ZOFRAN) injection 4 mg 1 02/22/2017 ondansetron (ZOFRAN-ODT) dis integrating tablet 4 mg 1 02/22/2017 oxyCODONE (ROXICODONE) immed iate release tablet 5 mg 1 02/22/2017 traMADol (ULTRAM) tablet 50 mg 1 02/22/2017 albuterol inhaler 2 Puff 2 02/21/2017 diatrizoate meglumine-sodium in sterile water (bottle) (GASTROGRAFIN) oral solution 1 02/21/2017 Lab Orders Without Results Count Last Ordered D ate First Ordered Date POCT GLUCOSE 1 02/21/2017 Diet Count Last Ordered Date First Orde red Date DISCHARGE DIET 1 02/23/2017 Nursing Count Last Ordered Date First Orde red Date ACTIVITY INSTRUCTIONS 1 02/23/2017 BATHING INSTRUCTIONS 1 02/23/2017 CONTRAINDICATION TO ANTICOAG ULATION THERAPY 1 02/21/2017 INSERT PERIPHERAL IV 1 02/21/2017 IV Count Last Ordered Date First Orde red Date IV REQUEST 1 02/23/2017 Admission Count Last Ordered Date First Orde red Date ED BED REQUEST 1 02/21/2017 STATUS: OUTPATIENT OBSERVATION SERVICES 1 0 02/21/2017 Transfer Count Last Ordered Date First Orde red Date NOTIFY PPS OF DISCHARGE COMPLETE 1 02/24/20 17 CHANGE ATTENDING TO: 1 02/22/2017 UR PATIENT STATUS CHANGE 1 02/22/2017 PPS NOTIFICATION OF PATIENT ARRIVAL ON UNIT 2 02/21/2017 Discharge Count Last Ordered Date First Orde red Date DISCHARGE PATIENT 1 02/23/2017 Legal Count Last Ordered Date First Orde red Date MISCELLANEOUS DISCHARGE INSTRUCTIONS 1 03/2017 documented in this encounter Care Teams Tail 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
--- OUTSIDE RECORDS SUMMARY | 2024-11-22 17:29 | XMS_ITS | Encounter Summary ---
Author Organization 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 Nasal and ear congestion. tmax 102 at home. Pt reports blood in the urine as well. Pt reports pressure in chest Encounter Details Date Type Department Care Team (Late st Contact Info) Description 04/10/2017 12:24 EDT - 04/10/2017 17:58 EDT Emergency [facility] Emergency Department - [address] [address] Wild Reyes, PA-C [address] [place] [address] Latrell Easley MD [address] [place] [address], [address] [place] [address] Emergency, MD Rolando Dehydration (Primary Dx); Wheezing Discharge Disposition: Home or Self Care Social [...] Sign Reading Time Taken Comments Blood Pressure 99/59 04/10/2017 1700 EDT Pulse 73 04/10/2017 1607 EDT Temperature 36.7 ??C (98.1 ??F) 04/10/2017 1230 EDT Respiratory Rate 18 04/10/2017 1700 EDT Oxygen Saturation 95% 04/10/2017 1700 EDT Inhaled Oxygen Concentration - - Weight 91.6 kg (202 lb) 04/10/2017 1230 EDT Height 165.1 cm (5' 5) 04/10/2017 1230 EDT Body Mass Index 33.61 04/10/2017 1230 EDT documented in this encounter Functional Status [...] documented in this encounter Discharge Diagnoses Diagnosis E86.0 DEHYDRATION[ICD-10-CM] J45.909 Unspecified asthma, uncomplicated-J45.909[ICD-10-CM] M60.9 Myositis, unspecified-M60.9[ICD-10-CM] Z88.6 Allergy status to analgesic agent status-Z88.6[ICD-10-CM] Z88.5 Allergy status to narcotic agent status-Z88.5[ICD-10-CM] Z88.2 Allergy status to sulfonamides status-Z88.2[ICD-10-CM] F17.200 Nicotine dependence, unspecified, uncomplicated-F17.200[ICD-10-CM] documented in this encounter Discharge Instructions * Discharge Instructions* Marisela Cunningham MD - 04/10/2017 16:45 EDT You were seen in the Emergency Department for wheezing and dehydration. A chest xray was normal and labs were normal; your wheezing was likely due to your underlying lung disease in addition to a viral upper respiratory tract infection. You received nebulizer treatment in the ED. Continue to use your home inhalers as prescribed. The nausea and vomiting you were experiencing likely led to dehydration. You received IV fluids andmedication for nausea. Continue to drink fluids as much as possible. You continue to have blood in your urine. There was no evidence of a urinary tract infection on a urinalysis done today. No further imaging was pursued because you just had imaging done earlier this month and there were no new concerning signs on exam or labs to suggest a new problem. Recommend setting up an appointment with urology for further work up. Please establish care with a new primary care doctor, and set up an appointment. * Attachments The following attachments cannot be sent through Care Everywhere. * DEHYDRATION (NEPALESE) documented in this encounter Medications at Time of Discharge albuterol 90 mcg/actuation inhaler Inhale 2 Puffs as directed every 4 hours as needed. 09/18/20 21 ALPRAZolam (XANAX) 1 mg tablet Take 1 mg by mouth 3 times daily. 09/30/20 17 ferrous gluconate (FERGON) 324 mg (38 mg iron) tablet Take 324 mg by mouth daily with breakfast. 04/23/20 21 fluticasone (FLOVENT) 110 mcg/actuation inhaler Inhale 110 mcg as directed 2 times daily. 11/26/19 20 LEVOTHYROXINE SODIUM (LEVOTHYROXINE ORAL) Take 25 mcg by mouth daily. Unknown dose 11/03/20 20 ondansetron (ZOFRAN-ODT) 4 mg disintegrating tablet Take 1 Tab by mouth every 8 hours as needed for Nausea. 12 Tab 7 05/04/20 17 pantoprazole (PROTONIX) 40 mg tablet Take 40 mg by mouth daily. 01/03/20 19 promethazine (PHENERGAN) [address] 1 Suppository rectally every 6 hours as needed for Nausea. 15 Suppository 7 05/04/20 17 rifAXImin (XIFAXAN) 550 mg tablet Take 550 mg by mouth 2 times daily 01/03/20 19 documented as of this encounter Discharge Disposition Disposition Code Departure Means Destination Home or Self Care Walk-out Home documented in this encounter ED Notes * Latrell Easley MD - 04/10/2017 1315 EDT Attending Attestation ?? I , Latrell Easley MD, performed a history and exam of this patient and discussed the casewith the Resident. I reviewed the Resident's note and I concur with the documented findings and plan of care, unless otherwise documented in my own note. ?? (Please find full documentation of this patient's encounter and care, including ROS and pain at the time of discharge, in the Resident note) Tara Yun is a 56 y.o. female with a history of psoriasis, thought to be related to QUIROZ, chronic leukopenia and thrombocytopenia, chronic splenic vein thrombosis and prior misrepresentation ofmedical history with drug seeking behavior. Patient presents today with 4-5 days of a productive cough, becoming more severe when laying down with associated difficulty breathing. She has been using her inhaler at home without relief. She has had a few days of nausea with decreased PO intake and several episodes of vomiting, noting she hasn't had anything to eat or drink today. She reports a fever yesterday, measured to 102 with associated shaking chills and night sweats last night. She endorses right- sided burning in her chest since this morning. Patient???s primary concern at this time is left flank pain. She complains of gross hematuria with this and requests pain medication. Physical exam Scant diffuse end-expiratory wheezing, very dry lips and mucous membranes, no scleral icterus. BLE with no warmth, cords, erythema. No notably asymmetric edema. No focal calf tenderness. Normal pulses distally. ED Course Labs were reviewed independently and contemporaneously with pt care, by me. Results significant for: 3+ hematuria--- this is a chronic condition. ED Radiology: CXR Impression: ---no acute abnormality (Radiographs/Images reviewed and interpreted by me, contemporaneously with patient care. Radiology interpretation also reviewed, if available) The patient has had an excellent evaluation at past for this hematuria. She appears to be wheezing mildly, and mildly dehydrated. She has done well with a bit of fluid, and a nebulizer. Chest x-ray reassuring. Unclear etiology. Recommended close follow-up with primary care provider. MDM Number of Diagnoses or Management Options ?? New, needed workup Diagnosis management comments/ E&M Level: ?? 4 ?? Other: Amount and/or Complexity of Data Reviewed I have independently provided care, visualized images, tracings, and/or other specimens. This documentation is recorded by Nestor Samson acting as Scribe under the direction and presence of Latrell Easley MD. Latrell Easley MD: I personally performed the services recorded by the scribe in my presence. I confirm the scribe's documentation has been reviewed by me to accurately and completely record my work, treatment, procedures, and medical decision making. * Juana Mccarty RN - 04/10/2017 1229 EDT Chief Complaint Patient presents with ??? Shortness of Breath pt reports cough for 4-5 days, productive. Nasal and ear congestion. tmax 102 at home. Pt reports blood in the urine as well. Pt reports pressure in chest resp even, unlabored, sats 94-97% on RA. Expiratory wheeze bilaterally * Wild Reyes PA - 04/10/2017 1227 EDT I, Smiley López, am scribing for Wild Reyes PA while he is personally performing the service. Smiley López 04/10/2017 12:31 A brief medical screening exam was performed in the hallway/triage to expedite care. Briefly, Tara Yun is a 56 y.o. female with a history of asthma as a child, that she states has not caused her significant problems, who presents with a cough for 4-5 days that has worsened. Patient states that the cough has become productive with thick sputum. She also endorses nasal congestion. Patient reports she has had fever and chills, however, she was not febrile in triage. Patient reports she has had some chest pain and palpitations while coughing and she reports she feels extremely SOB. She denies that she has seen a healthcare provider for her symptoms and that she has been taking Dayquil and Nyquil without relief of symptoms. Patent endorses smoking tobacco daily. PHYSICAL EXAM: A limited physical exam was performed. Pertinent physical exam findings below. Moving air with mild expiratory wheezes and rhonchi. Patient in NAD ED COURSE Anthony Easley MD was available for supervision. Patient ordered a CXR. The patient was returned to the waiting room to await a bed in the ED for further evaluation. This documentation is recorded by Smiley López acting as Scribe under the direction and presence of Wild Reyes PA. Wild Reyes PA: I personally performed the services recorded by the scribe in my presence. I confirm the scribe's documentation has been reviewed by me to accurately and completely record my work, treatment, procedures, and medical decision making. documented in this encounter Miscellaneous Notes * ED Resident - Marisela Cunningham MD - 04/10/2017 1327 EDT DOS: 04/10/2017 Chief Complaint Patient presents with ??? Shortness of Breath pt reports cough for 4-5 days, productive. Nasal and ear congestion. tmax 102 at home. Pt reports blood in the urine as well. Pt reports pressure in chest HPI The patient is a 56 y.o. female who presents today with Shortness of Breath (pt reports cough for 4-5 days, productive. Nasal and ear congestion. tmax 102 at home. Pt reports blood in the urine as well. Pt reports pressure in chest ) Ms. Yun is a 56 year old woman with a complex PMH (including cirrhosis secondary to QUIROZ, chronicleukopenia and thrombocytopenia, splenic vein thrombosis not on anticoagulation, and drug seeking behavior) presenting with recurrent hematuria, left flank pain, and URI symptoms with associated SOB. Patient states that she developed a cold a few days ago, which has progressively worsening. She hasa productive cough with associated shortness of breath; she is on Fluticasone and Proair and has been using them as directed. She feels as though her breathing gets worse when lying down (which is also when her cough worsens). She developed a fever to 102 yesterday, and also has had nausea and vomiting. She has been unable to tolerate much PO for the past days due to nausea. However, she was ableto take her medications this morning. She denies abdominal pain; having regular BMs. No lower extremity edema. Chest congestion in the setting of cough. Patient does have a history of kidney stones, with stenting and removal [address] Dickens. She presented 03/25/2017 with flank pain and gross hematuria, and urology was consulted with a completed CT urogram which showed no nephrolithiasis or other abnormality (chronic conditions were stable).She was discharged with phenergan. Since then she notes that her hematuria and flank pain have fluctuated significantly, but over the past few days have gotten worse. She has had trouble setting up an appointment with a PCP; she states that no one is accepting new patients. She was able to set up an appointment with a gun perforator at the end of this month. Per chart review, she was referred to GI but the referral would need to come from a PCP rather than an admission. Shortness of Breath Associated symptoms: cough (Productive of yellow/green sputum), fever, sore throat and vomiting Associated symptoms: no abdominal pain, no headaches and no rash Review of Systems Review of Systems Constitutional: Positive for appetite change (Decreased appetite in setting of nausea), chills, fatigue and fever. HENT: Positive for congestion, sinus pressure and sore throat. Eyes: Negative for visual disturbance. Respiratory: Positive for cough (Productive of yellow/green sputum) and shortness of breath. Cardiovascular: Negative for palpitations and leg swelling. Gastrointestinal: Positive for nausea and vomiting. Negative for abdominal distention, abdominal pain, blood in stool, constipation and diarrhea. Genitourinary: Positive for dysuria, flank pain (Left sided) and hematuria. Negative for difficultyurinating, frequency and urgency. Musculoskeletal: Negative for joint swelling and myalgias. Skin: Negative for pallor and rash. Neurological: Negative for dizziness, weakness, light-headedness and headaches. The patient's past medical, family and social history was reviewed and updated as needed. Allergies Allergen Reactions ??? Morphine Anaphylaxis ??? Tylenol [Acetaminophen] Other (See Comments) Contraindication with medical hx ??? Toradol [Ketorolac] Shortness Of Breath ??? Aspirin Other (See Comments) Contraindication with medical hx ??? Reglan [Metoclopramide Hcl] Rash ??? Sulfa (Sulfonamide Antibiotics) Rash Vital Signs Vitals Reassessment?: Yes Temp: 36.7 ??C (98.1 ??F) Temp src: Oral Pulse: 73 Resp: 16 SpO2: 98 % BP: 109/49 BP MAP: 64 mm Hg BP Device: BP Machine Patient Position: Lying right side BP Cuff Location: Left arm O2 Device: None (Room air) Physical Exam Constitutional: She is oriented to person, place, and time. She appears well- developed and well-nourished. No distress. HENT: Head: Normocephalic and atraumatic. Mouth/Throat: Oropharynx is clear and moist. Eyes: EOM are normal. Pupils are equal, round, and reactive to light. Neck: Normal range of motion. Neck supple. Cardiovascular: Normal rate and regular rhythm. Exam reveals no gallop and no friction rub. No murmur heard. Pulmonary/Chest: Effort normal. No respiratory distress. She has wheezes. She has no rales. Abdominal: Soft. Bowel sounds are normal. She exhibits no distension. There is no tenderness. Thereis no rebound and no guarding. Musculoskeletal: Normal range of motion. She exhibits no edema. Lymphadenopathy: She has no cervical adenopathy. Neurological: She is alert and oriented to person, place, and time. Skin: Skin is warm and dry. No rash noted. She is not diaphoretic. No erythema. RESULTS EKG orders: None Radiology orders: CHEST PA AND LATERAL Imaging Reviewed. I have independently reviewed the images. No acute abnormality. ED Lab Results Labs Reviewed URINALYSIS WITH MICROSCOPIC IF POSITIVE - Abnormal Result Value Status Blood, UA 3+ (*) Final Protein, UA 1+ (*) Final Color, UA Red Final Clarity, UA Hazy Final Glucose, UA Neg Final Bilirubin, UA Neg Final Ketones, UA Neg Final Specific Grady, Urine 1.010 Final pH, UA 7.5 Final Urobilinogen, UA 0.2 Final Nitrite, UA Neg Final Leuk Esterase Neg Final URINE CULTURE IF UA POSITIVE - NON POCT URINALYSIS ONLY Culture if Indicated Culture not indicated by urinalysis results. Final UA REFLEX UA Billing Microscopic not indicated. Final BASIC METABOLIC PANEL Sodium 142 Final Potassium 4.7 Final Chloride 107 Final CO2 27 Final BUN 14 Final Creatinine 0.80 Final GFR, Calculated 83 Final Calcium 9.0 Final Calculated Calcium 8.8 Final Glucose, Serum 83 Final Fasting? Unknown Final POCT URINE DIPSTICK Relevant Data Procedures ED COURSE A medical screening exam was performed. Urinalysis ordered. Urine grossly bloody. Urinalysis with 3+ blood, no nitrites or leuk esterase. Patient given tylenol and 1L plasmalyte, inaddition to Duoneb. BMP with normal creatinine and lytes. Continued to have nausea; IV Zofran administered. Re-evaluated patient. Much more comfortable, in agreement with returning home after IV fluids have continued. ASSESSMENT AND PLAN Final diagnoses: None Mr. Yun is a 56 year old woman with complex PMH presenting with SOB and cough in addition to hematuria and flank pain. In regards to the hematuria and flank pain, she had a similar presentation to the ED on 03/25/2017, with a CT urogram negative for nephrolithiasis or alternative acute pathology after consultation with urology. Given that her symptoms are the same now, will not pursue further imaging. She appeared mildly dehydrated on exam, but creatinine and lytes normal. Symptomatically treated and was given 1L plasmalyte. In terms of her SOB and cough, these symptoms have been present for 4-5 days and there is no consolidation on xray; no treatment indicated. She was stable on room air during her time in the ED. Wheezing improved after Duo Neb therapy. She likely has a viral URI. Per discussion with patient, she already has follow up with urology, hematology, and GI. Recommended that she establish care with a new PCP. Patient to be discharged from the ED following completion of IV fluids. DISPOSITION: No disposition on file The patient's pain was managed to an adequate level weighing risk vs. benefit of further medications. Upon departure from the Emergency Department, the patient's pain was 4 on a zero to ten scale. Condition at departure from the Emergency Department: Stable PCP: Provider None [facility] 04/10/2017 16:27 No flowsheet data found. documented in this encounter Plan of Treatment Upcoming Encounters Date Type Department Care Team (Late st Contact Info) Description 01/04/2025 13:00 EST Office Visit [facility] Ophthalmology - [address] [id number] Gagandeep Rome MD [address] [place] [address], [facility] [address] [place] [phone] 02/11/2025 13:30 EDT Telemedicine [facility] Hematology & Oncology [address] [id number] Dana Padilla MD [address] [place] [address], [address] [place] [phone] documented as of this encounter Procedures Procedure Name Priority Date/Time Associated Diagnosis Comments BASIC METABOLIC PANEL (BMP) STAT 04/10/2017 15:17 EDT NEBULIZER TX INTERMITTENT Routine 04/10/2017 14:44 EDT URINALYSIS WITH MICROSCOPIC IF POSITIVE STAT 04/10/2017 13:40 EDT UA REFLEX Routine 04/10/2017 13:40 EDT URINE CULTURE IF POSITIVE Routine 04/10/2017 13:40 EDT CHEST PA AND LATERAL STAT 04/10/2017 13:07 EDT documented in this encounter Results * BASIC METABOLIC PANEL (04/10/2017 15:17 EDT) Sodium 142 136 - 145 mEq/L 04/10/2017 15:44 [facility] Comment:Slight hemolysis Potassium 4.7 3.5 - 5.0 mEq/L 04/10/2017 15:44 [facility] Comment: Slight hemolysis Hemolysis may elevate potassium result. Chloride 107 96 - 110 mEq/L 04/10/2017 15:44 [facility] Comment:Slight hemolysis CO2 27 22 - 32 mEq/L 04/10/2017 15:44 [facility] Comment:Slight hemolysis BUN 14 10 - 26 mg/dl 04/10/2017 15:44 [facility] Comment: Slight hemolysis Results may be affected due to hemolysis. Creatinine 0.80 0.52 - 1.04 mg/dl 04/10/2017 15:44 [facility] Comment:Slight hemolysis GFR, Calculated 83 >60 ml/min/1.7 3m2 04/10/2017 15:44 [facility] Comment: eGFR calculated using CKD-EPI equation for non Americans. Multiply eGFR by 1.16 for Americans. Calcium 9.0 8.5 - 10.5 mg/dl 04/10/2017 15:44 [facility] Comment:Slight hemolysis Calculated Calcium 8.8 8.5 - 10.5 mg/dl 04/10/2017 15:44 [facility] Comment: Slight hemolysis Results may be affected due to hemolysis. Glucose, Serum 83 70 - 100 mg/dl 04/10/2017 15:44 [facility] Comment: Slight hemolysis Results may be affected due to hemolysis. Fasting? Unknown 04/10/2017 15:29 [facility] Blood specimen (specimen) BLOOD SPECIMEN / Unknown 04/10/2017 15:17 EDT 04/10/2017 15:29 EDT us Latrell Easley MD CHEMISTRY & BLOOD GAS ORD ERABLES Final Result [facility] [address] [place] [address] * UA REFLEX (04/10/2017 13:40 EDT) UA Billing Microscopic not indicated. 04/10/2017 13:[address] [facility] URINE / Unknown 04/10/2017 1 3:40 EDT 04/10/2017 13:45 EDT us Marisela Cunningham MD URINALYSIS ORDERABLES Final Result Performing Organization Address City/[facility] Co de Phone Number [facility] [address] [place] [address] * URINE CULTURE IF UA POSITIVE - NON POCT URINALYSIS ONLY (04/10/2017 13:40 EDT) Culture if Indicated Culture not indicated by urinalysis results. 04/10/2017 15:[address] [facility] Urine specimen (specimen) TOPOGRAPHY UNKNOWN / Unknown 04/10/2017 13:40 EDT 04/10/2017 13:45 EDT us Marisela Cunningham MD MICROBIOLOGY - GENERAL ORDE RABKIANNA Final Result Performing Organization Address City/[facility]/ZIP Co de Phone Number [facility] [address] [place] [address] * (ABNORMAL) URINALYSIS WITH MICROSCOPIC IF POSITIVE (04/10/2017 13:40 EDT) Color, UA Red 04/10/2017 13:[address] [facility] Clarity, UA Hazy 04/10/2017 13:[address] [facility] Glucose, UA Neg Neg 04/10/2017 13:[address] [facility] Bilirubin, UA Neg Neg 04/10/2017 13:[address] [facility] Ketones, UA Neg Neg 04/10/2017 13:[address] [facility] Specific Grady, Urine 1.010 1.001 - 1.035 04/10/2017 13:[address] [facility] Blood, UA 3+(A) Neg 04/10/2017 13:50 [facility] pH, UA 7.5 4.6 - 8.0 04/10/2017 13:[address] [facility] Protein, UA 1+(A) Neg 04/10/2017 13:[address] [facility] Urobilinogen, UA 0.2 0.2 - 1.0 E.U./dl 04/10/2017 13:[address] [facility] Nitrite, UA Neg Neg 04/10/2017 13:[address] [facility] Leuk Esterase Neg Neg 04/10/2017 13:50 [facility] Urine specimen (specimen) URINE / Unknown 04/10/2017 13:40 EDT 04/10/2017 13:45 EDT us Marisela Cunningham MD URINALYSIS ORDERABLES Final Result [facility] [address] [place] [address] * CHEST PA AND LATERAL (04/10/2017 13:07 EDT) Anatomical Region Laterality Modality Other 04/10/2017 13:0 7 EDT 04/10/2017 18:06 EDT Narrative 04/10/2017 18:06 EDT CHEST PA AND LATERAL ??04/10/2017 1:07 PM Clinical History/Comments: Shortness of breath COMPARISON: Chest CT 07/17/2015, chest radiograph 07/17/2015. TECHNIQUE: Frontal and lateral views of the chest were performed. FINDINGS: Soft tissues and extrathoracic findings: ??No abnormalities. Bones: No significant abnormalities. Cardiac and mediastinal contours: Normal. Lungs: The lungs are clear. The pulmonary vascularity is normal. ?? Pleura/diaphragms: No effusion or pneumothorax. IMPRESSION: 1. ??Normal chest exam I have personally reviewed the images and the above interpretation and agree with the findings. Procedure Note Jayden Kemp MD - 04/10/2017 CHEST PA AND LATERAL 04/10/2017 1:07 PM Clinical History/Comments: Shortness of breath COMPARISON: Chest CT 07/17/2015, chest radiograph 07/17/2015. TECHNIQUE: Frontal and lateral views of the chest were performed. FINDINGS: Soft tissues and extrathoracic findings: No abnormalities. Bones: No significant abnormalities. Cardiac and mediastinal contours: Normal. Lungs: The lungs are clear. The pulmonary vascularity is normal. Pleura/diaphragms: No effusion or pneumothorax. IMPRESSION: 1. Normal chest exam I have personally reviewed the images and the above interpretation and agree with the findings. Wild Reyes PA-C [facility] ORDERA BLES Final Result documented in this encounter Visit Diagnoses Diagnosis Dehydration- Primary Wheezing documented in this encounter Administered Medications Inactive Administered Medications - up to 3 most recent administrations Medication Order MAR Action Action Date Dose Rate Site acetaminophen (TYLENOL) tablet 1,000 mg 1,000 mg, oral, NOW X1, 1 dose, On 04/10/17 at 1445, STAT Given 04/10/2017 15:15 EDT 1,000 mg electrolyte-A (PLASMALYTE-A) bolus 1,000 mL 1,000 mL, intravenous, NOW X1, 1 dose, On 04/10/17 at 1445 New Bag 04/10/2017 15:58 EDT 1,000 mL fentaNYL citrate (PF) 50 mcg/mL injection 100 mcg 100 mcg, intravenous, NOW X1, 1 dose, On 04/10/17 at 1615, STAT Given 04/10/2017 16:36 EDT 50 mcg Given 04/10/2017 16:17 EDT 50 mcg ipratropium-albuterol (DUONEB) 0.5 mg-3 mg(2.5 mg base)/3 mL nebulizer solution 3 mL 3 mL, nebulization, NOW X1, 1 dose, On 04/10/17 at 1445, STAT Given 04/10/2017 15:15 EDT 3 mL ondansetron (PF) (ZOFRAN) injection 4 mg 4 mg, intravenous, NOW X1, 1 dose, On 04/10/17 at 1600, STAT Given 04/10/2017 16:03 EDT 4 mg documented in this encounter Active and Recently Administered Medications Times are shown in EDT. Scheduled Medication Order 04/08/2017 04/09/2017 04/10/2017 acetaminophen (TYLENOL) tablet 1,000 mg (COMPLETED) 1,000 mg, oral, NOW X1, 1 dose, On 04/10/17 at 1445, STAT 1515 (Given - Provid er: Razia Mejia RN) electrolyte-A (PLASMALYTE-A) bolus 1,000 mL (COMPLETED) 1,000 mL, intravenous, NOW X1, 1 dose, On 04/10/17 at 1445 1558 (New Bag - Prov ider: Dilan Young RN)1747 (Completed - Provider: Dilan Young, KENN) fentaNYL citrate (PF) 50 mcg/mL injection 100 mcg (COMPLETED) 100 mcg, intravenous, NOW X1, 1 dose, On 04/10/17 at 1615, STAT 1617 (Given - Provid er: Dilan Young RN)1636 (Given - Provider: Dilan Young, KENN) ipratropium-albuterol (DUONEB) 0.5 mg-3 mg(2.5 mg base)/3 mL nebulizer solution 3 mL (COMPLETED) 3 mL, nebulization, NOW X1, 1 dose, On 04/10/17 at 1445, STAT 1515 (Given - Provid er: Razia Mejia RN) ondansetron (PF) (ZOFRAN) injection 4 mg (COMPLETED) 4 mg, intravenous, NOW X1, 1 dose, On 04/10/17 at 1600, STAT 1603 (Given - Provid er: Dilan Young RN) documented in this encounter Orders Lab Orders Without Results Count Last Ordered D ate First Ordered Date POCT URINE DIPSTICK 1 04/10/2017 Respiratory Care Count Last Ordered Date First Ordered Date NEBULIZER TX INTERMITTENT 1 04/10/2017 IV Count Last Ordered Date First Orde red Date IV REQUEST 1 04/10/2017 documented in this encounter Care Teams Centerless Grinder Operator Relationship Specialty Start Date End Date None, Provider PCP - General 03/25/17 09/08/17 documented as of this encounter
--- OUTSIDE RECORDS SUMMARY | 2024-11-22 17:29 | XMS_ITS | Encounter Summary ---
Author Organization [facility] Address [address] [place] [address] Care Team Providers Care Medical Insurance Biller Name Role Phone None, Provider Primary Care Provider UnavailAlli Morton MD Primary Care Provider [phone] None, Provider Primary Care Provider UnavailNaty Moralez MD Unavailable Jaimie Evans MD Primary Care Provider [phone] Hardik Viramontes MD Primary Care Provider Naty Evans MD Unavailable Segundo Weems MD Primary Care Provider Aj Issa MD Primary Care Provider + Alma Farfan MD Primary Care Provider Emigdio Veronica MD Primary Care Provider + Starr Paige MD Unavailable [phone] Dana Padilla MD Unavailable Izabella SnowdenSW Unavailable [phone] None, Provider Primary Care Provider UnavailGabriel Dacosta Primary Care Provider [phone] Mirna Guerrero Primary Care Provider + Encounter Details Date Type Department Care Team (Late st Contact Info) Description 02/23/2017 Documentation Visit [facility] Hematology & Oncology - [facility] [address] [place], [place] [id number] Devonte Rodriguez, KENN [address] [place] [address] Social History Tobacco Use Types Packs/Day Years [...] [facility] Ophthalmology - [address] [phone] Gagandeep Rome MD [address] [place] [address], [address] [place] [phone] 02/11/2025 13:30 EDT Telemedicine [facility] Hematology & Oncology - [address] [phone] Dana Padilla MD [address] [place] [address], [facility] 2 [place] [address] documented as of this encounter [...] documented as of this encounter Care Teams Medical Insurance Biller Relationship Specialty Start Date End Date None, Provider PCP - General 01/03/17 02/23/17 Alli Lew MD [address] [place] [address] [place] [address] PCP - General 02/24/17 03/24/17 None, Provider PCP - General 03/25/17 09/08/17 Naty Evans MD [address] [place] [address] [place] [phone] PCP - Alternate 09/09/17 09/19/17 Jaimie Evans MD [address] [place] [id number] PCP - General 09/20/17 09/29/17 Hardik Viramontes MD 1 [facility] 1 [place] [phone] PCP - General 09/30/17 02/07/18 Naty Evans MD [address] [place] [address] [place] [phone] PCP - Alternate 09/30/17 04/11/19 Segundo Weems MD 1 [facility] 1 [place] [address] PCP - General 02/08/18 07/28/18 Aj Issa MD [address] [place] [phone] PCP - General 07/29/18 03/13/19 Alma Farfan MD [address] [place] [phone] PCP - General 03/14/19 05/21/20 Emigdio Veronica MD [address] [place] [phone] PCP - General Internal Medicine - Primary Care 05/22/20 02/21/24 None, Provider PCP - General 02/24/24 03/18/24 Gabriel Gandara PA [address] [place] [address], [address] [place] [phone] PCP - General 03/19/24 09/11/24 Mirna Guerrero PA [address] [place] [address] [phone] PCP - General 09/12/24 Starr Paige MD [address] [place] [address] [place] [address] Hematology 10/08/21 06/09/22 Dana Padilla MD [address] [facility], [address] [place] [phone] Hematology 01/13/22 06/09/22 Izabella Snowden, [facility] 1 [facility], [address] [place] [address] Chronic Manager 02/21/23 05/03/24 documented as of this encounter
--- OUTSIDE RECORDS SUMMARY | 2024-11-22 17:29 | XMS_ITS | Encounter Summary ---
Author Organization [facility] Address [address] [place] [address] Care Team Providers Care Pipe Wrapping Machine Operator Name Role Phone None, Provider Primary Care Provider Unavailabl e Naty Evans MD Unavailable Jaimie Evans MD Primary Care Provider [phone] Hardik Viramontes MD Primary Care Provider [phone] Naty Evans MD Unavailable Segundo Weems MD Primary Care Provider [phone] Aj Issa MD Primary Care Provider + Reason for Visit * Reason Onset Date Comments Flank Pain 03/25/2017 left; pain is 7- 8 on pain scale Hematuria 03/25/2017 Encounter Details Date Type Department Care Team (Late st Contact Info) Description 03/25/[address] [facility] Urology - [facility] [address] [place] [address] Jordan Dickens MD 111 [facility], [address] [place] [address] Flank Pain (left; pain is 7-8 on pain scale); Hematuria Social History Tobacco Use Types Packs/Day Years [...] encounter Miscellaneous Notes * Telephone Encounter - Susan Hilliard - 03/25/2017 1211 EDT Reason for Call: Flank Pain (left; pain is 7-8 on pain scale) and Hematuria Summary/Symptoms: Per pt, has had left flank pain and blood in urine for the past 2 days with it being the worst today. Per pt, left flank pain is a 7-8 on pain scale. Pt requesting a call back todayto discuss. Susan Hilliard 03/25/2017 12:11 documented in this encounter Plan of Treatment Upcoming Encounters Date Type Department Care Team (Late st Contact Info) Description 01/04/2025 13:[address] [facility] Ophthalmology - [address] [phone] Gagandeep Rome MD [address] [place] [address] 5 [place] [phone] 02/11/2025 13:30 EDT Telemedicine [facility] Hematology & Oncology [address] [phone] Dana Padilla MD [address] [place] [address] 2 [place] [phone] documented as of this encounter Visit Diagnoses Not on filedocumented in this encounter Care Teams Pipe Wrapping Machine Operator Relationship Specialty Start Date End Date None, Provider PCP - General 03/25/17 09/08/17 Naty Evans MD [address] [place] [address] [place] [phone] PCP - Alternate 09/09/17 09/19/17 Jaimie Evans MD [address] [place] [phone] PCP - General 09/20/17 09/29/17 Hardik Viramontes MD [address] [place] [address] 1 [place] [phone] PCP - General 09/30/17 02/07/18 Naty Evans MD [address] [place] [address] [place] [phone] PCP - Alternate 09/30/17 04/11/19 Segundo Weesm MD 1 [facility] 1 [place] [phone] PCP - General 02/08/18 07/28/18 Aj Issa MD [address] [place] [address] [address] [place] [address] PCP - General 07/29/18 03/13/19 documented as of this encounter
--- OUTSIDE RECORDS SUMMARY | 2024-11-22 17:29 | XMS_ITS | Encounter Summary ---
Author Organization [facility] Address [address] [place] [id number] Care Team Providers Care Director Of Retail Analytics Name Role Phone None, Provider Primary Care Provider Unavailabl e Reason for Visit * Reason Comments Hematuria cramping and pink co lored urine for a couple of days, today increased hematuria, increased ramping and low back pain, + N/V, no fever, chills, Encounter Details Date Type Department Care Team (Late st Contact Info) Description 03/25/2017 14:17 EDT - 03/25/2017 18:19 EDT Emergency [facility] Emergency Department - [place] [address] [place] [id number] Wild Reyes, PAJael [address] [place] [address] Emergency, MD Rolando Flank pain (Primary Dx); Hematuria Discharge Disposition: Home or Self Care Social [...] Sign Reading Time Taken Comments Blood Pressure 116/66 03/25/2017 1800 EDT Pulse - - Temperature 36.9 ??C (98.4 ??F) 03/25/2017 1419 EDT Respiratory Rate 16 03/25/2017 1800 EDT Oxygen Saturation 100% 03/25/2017 1800 EDT Inhaled Oxygen Concentration - - Weight 90.7 kg (200 lb) 03/25/2017 1419 EDT Height 165.1 cm (5' 5) 03/25/2017 1419 EDT Body Mass Index 33.28 03/25/2017 1419 EDT documented in this encounter Functional Status [...] encounter Discharge Diagnoses Diagnosis R31.9 Hematuria, unspecified-R31.9[ICD-10-CM] R10.9 Unspecified abdominal pain-R10.9[ICD-10-CM] Z87.442 Personal history of urinary calculi-Z87.442[ICD-10-CM] J45.909 Unspecified asthma, uncomplicated-J45.909[ICD-10-CM] K74.60 Unspecified cirrhosis of liver-K74.60[ICD-10-CM] M06.9 Rheumatoid arthritis, unspecified-M06.9[ICD-10-CM] Z88.5 Allergy status to narcotic agent status-Z88.5[ICD-10-CM] Z88.6 Allergy status to analgesic agent status-Z88.6[ICD-10-CM] Z88.2 Allergy status to sulfonamides status-Z88.2[ICD-10-CM] F17.200 Nicotine dependence, unspecified, uncomplicated-F17.200[ICD-10-CM] documented in this encounter Discharge Instructions * Discharge Instructions* Wild Reyes PA - 03/25/2017 18:05 EDT Exam today shows blood in your urine but no obvious signs of infection. Urine was sent for culture and you will be notified within 48 hours if her culture is positive and you need antibiotics. X-ray showed no obvious kidney stones. Ultrasound showed no swelling of the kidneys or kidney stones. CT of your kidney showed no kidney stones or other abnormality. The case was discussed with urology, whofeels that you can follow-up with Dr. Dickens for blood in your urine. Notes in your chart from your recent admission indicate that you can take Tylenol for discomfort. Return immediately for worsening or uncontrolled symptoms, otherwise followup with your PCP And urology documented in this encounter Medications at Time [...] 01/03/20 19 documented as of this encounter Ordered Prescriptions Prescription Sig Dispense Quantity Refills Last Filled Start Date End Date promethazine (PHENERGAN) [address] 1 Suppository rectally every 6 hours as needed for Nausea. 15 Suppository 7 05/04/20 17 documented in this encounter Discharge Disposition Disposition Code Departure Means Destination Home or Self Care documented in this encounter ED Notes * Kendrick Dominguez RN - 03/25/2017 1818 EDT Pt d/c ambulatory with a normal gait and in NAD. Pt d/c with script. Pt provided with instructions.Resp unlabored. Skin warm and dry. Pt AO. * Wild Reyes PA - 03/25/2017 1736 EDT DOS: 03/25/2017 Chief Complaint Patient presents with ??? Hematuria cramping and pink colored urine for a couple of days, today increased hematuria, increased ramping and low back pain, + N/V, no fever, chills, HPI The patient is a 56 y.o. female who presents today with Hematuria (cramping and pink colored urine for a couple of days, today increased hematuria, increased ramping and low back pain, + N/V, no fever, chills, ) HPI Comments: Chief complaint of left flank pain, gross hematuria. Patient states she started having a little bit of left flank pain and mild hematuria 5 days ago. Over the last 5 days, she has developed increasing pain in this area and increasingly dark gross hematuria. She has also had nausea andvomiting for the last couple of days. Patient denies dysuria, urinary frequency or urgency or hesitancy. She denies fever or shaking chills. No change in bowel movements. Patient does have a history of kidney stones, with stenting and removal [address] Dickens. As well she has a history of mixed connective tissue disorder, on Plaquenil. Also has chronic pancytopenia with low white blood cells and platelets. As well she has a history of splenomegaly of unknown significance with a normal bone marrow biopsy several years ago at [facility]. Also shehas a history of drug-seeking behavior, per her chart. The history is provided by the patient. Hematuria Associated symptoms: flank pain, nausea and vomiting Associated symptoms: no abdominal pain and no fever Review of Systems Review of Systems Constitutional: Negative for activity change, chills and fever. HENT: Negative for congestion, ear pain, rhinorrhea and sore throat. Eyes: Negative for pain, redness and visual disturbance. Respiratory: Negative for cough and shortness of breath. Cardiovascular: Negative for chest pain and leg swelling. Gastrointestinal: Positive for nausea and vomiting. Negative for abdominal pain and diarrhea. Genitourinary: Positive for flank pain and hematuria. Negative for dysuria and pelvic pain. Musculoskeletal: Negative for back pain and neck pain. Skin: Negative for color change and rash. Psychiatric/Behavioral: Negative for agitation and behavioral problems. The patient's past medical, family and social [...] 36.9 ??C (98.4 ??F) Temp src: Oral Heart Rate: 88 BPM Resp: 16 SpO2: 100 % BP: 116/66 BP Device: BP Machine Patient Position: Sitting BP Cuff Location: Right arm O2 Device: None (Room air) Physical Exam Constitutional: She is oriented to person, place, and time. She appears well- developed and well-nourished. No distress. Eyes: Conjunctivae and EOM are normal. Pupils are equal, round, and reactive to light. Pulmonary/Chest: Effort normal. Abdominal: Soft. Bowel sounds are normal. She exhibits mass (splenomegaly). She exhibits no distension. There is tenderness (moderate left upper quadrant, mild left lower quadrant tenderness). There is no rebound and no guarding. Neurological: She is alert and oriented to person, place, and time. Skin: Skin is warm and dry. Psychiatric: She has a normal mood and affect. Her behavior is normal. Judgment and thought contentnormal. Nursing note and vitals reviewed. RESULTS EKG orders: None ED Lab Results Labs Reviewed HEMAGRAM AND DIFFERENTIAL - Abnormal Result Value Status WBC 1.83 (*) Final HCT 34.7 (*) Final PLT 48 (*) Final ABS Neutrophils 1.41 (*) Final ABS Lymphs 0.35 (*) Final ABS Monocytes 0.07 (*) Final RBC 4.12 Final Hemoglobin 11.7 Final MCV 84 Final MCH 28.4 Final MCHC 33.7 Final RDW-CV 14.5 Final RDW-SD 44.3 Final MPV 10.6 Final Neutrophils 77.0 Final Lymphocytes 19.0 Final Monocytes 4.0 Final Toxic Granulation Present Final Vacuolization Present Final Type of Diff: Manual Final URINALYSIS MICROSCOPIC ONLY - Abnormal Squam Epithel, UA Frequent (*) Final WBC, UA 5 to 10 Final RBC, UA Innum Final Renal Epithel, UA None seen Final Bacteria, UA None seen Final Crystals, UA None seen Final Casts, UA None seen Final UA Comment Microscopic results Final POCT URINE DIPSTICK - Abnormal Blood 3+ (*) Final Protein 2+ (*) Final Leuk Esterase Trace (*) Final Color Red Final Clarity, UA SLIGHTLY CLOUDY Final Glucose Neg Final Bilirubin Neg Final Ketones Neg Final Specific [place] 1.015 Final pH 7.5 Final Urobilinogen 1.0 Final Nitrite Neg Final Tech ID [id number] Final BACTERIAL CULTURE, URINE Result Final Value: Less than 10,000 CFU/ml Usual urogenital tiffanie. BASIC METABOLIC PANEL Sodium 143 Final Potassium 4.0 Final Chloride 107 Final CO2 26 Final BUN 14 Final Creatinine 0.70 Final GFR, Calculated 97 Final Calcium 9.0 Final Calculated Calcium 9.0 Final Glucose, Serum 82 Final Fasting? Unknown Final ED/URGENT CARE ADD-ON Tests to be added URINE CULTURE Final Number for problems [id number] (ED) Final POCT TEST, CLINITEK UPT Result Neg Final Tech ID [id number] Final Relevant Data Procedures ED COURSE A medical screening exam was performed. On exam, normal vital signs, diffuse mild to moderate left-sided abdominal tenderness. Urine shows innumerable red blood cells, with a normal BMP, CBC. Urine sent for culture. No acute findings on KUB or retroperitoneal ultrasound. Significant hematuria, case was discussed by phone with urology, recommend CT urogram, which shows no signs of urinary tract calculus, no renal abnormalities. Unclear source of gross hematuria, but will follow-up with Urology ASSESSMENT AND PLAN Final diagnoses: Flank pain Hematuria DISPOSITION: Discharged The patient's pain was managed to an adequate level weighing risk vs. benefit of further medications. Upon departure from the Emergency Department, the patient's pain was 1 on a zero to ten scale. Condition at departure from the Emergency Department: Stable PCP: Provider None SARIAH Camarena 04/05/2017 11:13 No flowsheet data found. * Leo Carney RN - 03/25/2017 2238 EDT Blood drawn via saline lock per protocol, tiger and purple tube(s) sent to lab per order. Medicatedas ordered. Patient to radiology 15:46 patient returns from US documented in this encounter Plan of Treatment Upcoming Encounters Date Type Department Care Team (Late st Contact Info) Description 01/04/2025 13:00 EST Office Visit [facility] Ophthalmology - [address] [address] Gagandeep Rome MD [address] [facility], [address] [place] [address] 02/11/2025 13:30 EDT Telemedicine [facility] Hematology & Oncology - [facility] [address] [place] [address] Dana Padilla MD [address] [facility], [address] [place] [address] documented as of this encounter Procedures Procedure Name Priority Date/Time Associated Diagnosis Comments ED/URGENT CARE ADD-ON STAT 03/25/2017 18:[address] UROGRAM W/WO CONTRAST STAT 03/25/2017 17:25 EDT RAD US RETROPERITONEAL COMPLETE STAT 03/25/2017 15:41 EDT ABDOMEN AP 1 VIEW STAT 03/25/2017 15: 21 EDT URINE SEDIMENT (MICRO) WITHOUT REFLEX TO CULTURE STAT 03/25/2017 15:07 EDT BACTERIAL CULTURE, URINE Routine 03/25/2017 15:07 EDT COMPLETE BLOOD COUNT AND DIFFERENTIAL STAT 03/25/2017 15:06 EDT BASIC METABOLIC PANEL (BMP) STAT 03/25/2017 15:06 EDT POCT TEST, CLINITEK STAT 03/25/2017 14:47 EDT POCT URINE DIPSTICK, CLINITEK STAT 03/25/2017 14:47 EDT documented in this encounter Results * ED/URGENT CARE ADD-ON (03/25/2017 18:05 EDT) Tests to be added URINE CULTURE 03/25/2017 18:01 EDT [facility] Number for problems [id number] (ED) 03/25/2017 18:01 EDT [facility] TOPOGRAPHY UNKNOWN / Unknown 03/25/2017 18:05 EDT 03/25/2017 18:13 EDT us Wild Reyes PA-C HEMATOLOGY & PF4 ORDERABLES F inal Result [facility] [address] [place] [address] * CT UROGRAM W/WO CONTRAST (03/25/2017 17:25 EDT) Anatomical Region Laterality Modality Other 03/25/2017 17:2 5 EDT 03/26/2017 10:13 EDT Narrative 03/26/2017 10:[address] UROGRAM ??03/25/2017 5:25 PM Signs and Symptoms/Comments: ?? Hematuria. Technique: Precontrast images were initially obtained from the top of the kidneys through the bladder. This was then followed by contrast-enhanced, nephrographic phase using a split bolus technique: 65 cc of 370 mg percent nonionic IV contrast administered at a rate of 2 cc/s, then after a 12 minute delay a 30 cc bolus of 370 mg percent IV contrast at 1 cc/s was administered. Images were obtained at 50 seconds after a 2nd bolus. Coronal and sagittal reconstruction images were performed. Comparison: ??CT February 21, 2017 Findings: Kidneys ureters and bladder: Unenhanced CT images demonstrate no evidence of renal, ureteral, or bladder calculi. Following contrast administration, both kidneys enhance symmetrically. There is no evidence of hydronephrosis. No filling defects are identified in either collecting system or the urinary bladder. The proximal half of both ureters are opacified and are unremarkable. The distal half of both ureters is not well opacified on the excretory phase. Hepatobiliary: The liver is again noted to demonstrate a nodular contour. The gallbladder is absent. Previously described enhancing lesion in the dome of the liver is not well evaluated on this phase of contrast enhancement. Mild biliary ductal dilatation is stable. Spleen, pancreas and adrenals: The spleen is again noted to be enlarged. A hypodensity in the periphery of the spleen is stable when compared to the previous examination. The pancreas is unremarkable. The adrenal glands are hyperplastic. Bowel: There are scattered diverticula in the colon. Lymphovascular: Again seen is the thrombus in the distal splenic vein. The portal vein remains enlarged. Small lymph nodes are present in the retroperitoneum, nonpathologic. Peritoneal cavity: There is no evidence of free intra-abdominal air. No free fluid is present. Uterus and adnexa: The patient is status post hysterectomy. There are no adnexal masses. Abdominal wall: There is mesh in the right side of the abdominal wall related to prior hernia repair. Musculoskeletal: No acute abnormalities. Lung bases: There may be very mild thickening of the interlobular septa. IMPRESSIONS: 1. No evidence of urinary tract calculus. 2. No renal masses, hydronephrosis, or filling defects are identified in the proximal half of both ureters. The distal half of the ureters are not opacified by contrast. The urinary bladder is unremarkable. 3. Cirrhosis with portal hypertension. 4. 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 5. Stable hypodensity in the spleen. 6. Status post cholecystectomy with stable intra and extrahepatic bile duct dilatation. 7. Status post hysterectomy. 8. Mild colonic diverticulosis. Procedure Note ZhaoBrandy MD - 03/26/2017 CT UROGRAM 03/25/2017 5:25 PM Signs and Symptoms/Comments: Hematuria. Technique: Precontrast images were initially obtained from the top of the kidneys through the bladder. This was then followed by contrast-enhanced, nephrographic phase using a split bolus technique: 65 cc of 370 mg percent nonionic IV contrast administered at a rate of 2 cc/s, then after a 12 minute delay a 30 cc bolus of 370 mg percent IV contrast at 1 cc/s was administered. Images were obtained at 50 seconds after a 2nd bolus. Coronal and sagittal reconstruction images were performed. Comparison: CT February 21, 2017 Findings: Kidneys ureters and bladder: Unenhanced CT images demonstrate no evidence of renal, ureteral, or bladder calculi. Following contrast administration, both kidneys enhance symmetrically. There is no evidence of hydronephrosis. No filling defects are identified in either collecting system or the urinary bladder. The proximal half of both ureters are opacified and are unremarkable. The distal half of both ureters is not well opacified on the excretory phase. Hepatobiliary: The liver is again noted to demonstrate a nodular contour. The gallbladder is absent. Previously described enhancing lesion in the dome of the liver is not well evaluated on this phase of contrast enhancement. Mild biliary ductal dilatation is stable. Spleen, pancreas and adrenals: The spleen is again noted to be enlarged. A hypodensity in the periphery of the spleen is stable when compared to the previous examination. The pancreas is unremarkable. The adrenal glands are hyperplastic. Bowel: There are scattered diverticula in the colon. Lymphovascular: Again seen is the thrombus in the distal splenic vein. The portal vein remains enlarged. Small lymph nodes are present in the retroperitoneum, nonpathologic. Peritoneal cavity: There is no evidence of free intra-abdominal air. No free fluid is present. Uterus and adnexa: The patient is status post hysterectomy. There are no adnexal masses. Abdominal wall: There is mesh in the right side of the abdominal wall related to prior hernia repair. Musculoskeletal: No acute abnormalities. Lung bases: There may be very mild thickening of the interlobular septa. IMPRESSIONS: 1. No evidence of urinary tract calculus. 2. No renal masses, hydronephrosis, or filling defects are identified in the proximal half of both ureters. The distal half of the ureters are not opacified by contrast. The urinary bladder is unremarkable. 3. Cirrhosis with portal hypertension. 4. 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 5. Stable hypodensity in the spleen. 6. Status post cholecystectomy with stable intra and extrahepatic bile duct dilatation. 7. Status post hysterectomy. 8. Mild colonic diverticulosis. us Wild Reyes PA-C IMG CT ORDERABLES Final Resul t * RAD US RETROPERITONEAL COMPLETE (03/25/2017 15:41 EDT) Anatomical Region Laterality Modality Other 03/25/2017 15:4 1 EDT 03/25/2017 16:00 EDT Narrative 03/25/2017 16:00 EDT RAD US RETROPERITONEAL COMPLETE ??03/25/2017 3:41 PM Signs and Symptoms/Comments: ??Flank pain, stone known or suspected, Left flank pain, hematuria, history of stones . COMPARISON: None. ? FINDINGS: Kidneys: The kidneys are normal in size, location, and architecture. There is no evidence of hydronephrosis. The right kidney measures 11.2 cm in length and the left kidney is 12.5 cm long. Bladder: The urinary bladder is normal in appearance. It is noted that there is marked splenomegaly. The spleen measures 20.7 x 8.9 x 20.34 splenic volume estimated to be 1965 mL. Comparison is made with the CT scan done on February 21, 2017, and the spleen appears not significantly changed. Impression: 1. Normal renal ultrasound 2. Stable massive splenomegaly Procedure Note Espinoza Brown MD - 03/25/2017 RAD US RETROPERITONEAL COMPLETE 03/25/2017 3:41 PM Signs and Symptoms/Comments: Flank pain, stone known or suspected, Left flank pain, hematuria, history of stones . COMPARISON: None. FINDINGS: Kidneys: The kidneys are normal in size, location, and architecture. There is no evidence of hydronephrosis. The right kidney measures 11.2 cm in length and the left kidney is 12.5 cm long. Bladder: The urinary bladder is normal in appearance. It is noted that there is marked splenomegaly. The spleen measures 20.7 x 8.9 x 20.34 splenic volume estimated to be 1965 mL. Comparison is made with the CT scan done on February 21, 2017, and the spleen appears not significantly changed. Impression: 1. Normal renal ultrasound 2. Stable massive splenomegaly us Wild Reyes PA-C IMG US ORDERABLES Final Resul t * ABDOMEN AP 1 VIEW (03/25/2017 15:21 EDT) Anatomical Region Laterality Modality Other 03/25/2017 15:2 1 EDT 03/25/2017 15:48 EDT Narrative 03/25/2017 15:48 EDT ABDOMEN AP 1 VIEW ??03/25/2017 3:21 PM Clinical History/Comments: FLANK PAIN, L flank pain, hematuria, history of stones Comparison: CT abdomen/pelvis dated February 21, 2017. Technique: KUB radiograph Findings: No abnormal calcifications are identified projecting over the kidneys, expected path of the ureters, or urinary bladder. Multiple phleboliths project over the right hemipelvis. Surgical clips are seen in the right upper and lower quadrant. Injection granulomas are noted over both gluteal region. The bowel gas pattern is nonobstructive. Lung bases are clear. Mild degenerative changes throughout the lumbar spine and pelvis. Thyromegaly is noted Impression: No radiographic evidence of urinary tract calculi. I have personally reviewed the images and the above interpretation and agree with the findings. Procedure Note Jayden Bull MD - 03/25/2017 ABDOMEN AP 1 VIEW 03/25/2017 3:21 PM Clinical History/Comments: FLANK PAIN, L flank pain, hematuria, history of stones Comparison: CT abdomen/pelvis dated February 21, 2017. Technique: KUB radiograph Findings: No abnormal calcifications are identified projecting over the kidneys, expected path of the ureters, or urinary bladder. Multiple phleboliths project over the right hemipelvis. Surgical clips are seen in the right upper and lower quadrant. Injection granulomas are noted over both gluteal region. The bowel gas pattern is nonobstructive. Lung bases are clear. Mild degenerative changes throughout the lumbar spine and pelvis. Thyromegaly is noted Impression: No radiographic evidence of urinary tract calculi. I have personally reviewed the images and the above interpretation and agree with the findings. Wild Reyes PA-C IMG DIAGNOSTIC IMAGING ORDERA BLES Final Result * BACTERIAL CULTURE, URINE (03/25/2017 15:07 EDT) Result Less than 10,000 CFU/ml Usual urogenital tiffanie. 03/27/2017 7:31 EDT [facility] URINE / Unknown 03/25/2017 1 5:07 EDT 03/25/2017 18:12 EDT Wild Reyes PA-C MICROBIOLOGY - GENERAL ORDERA BLES Final Result [facility] [address] [place] [address] * (ABNORMAL) URINALYSIS MICROSCOPIC ONLY (03/25/2017 15:07 EDT) WBC, UA 5 to 10 0 - 5 /HPF 03/25/2017 15:45 EDT [facility] RBC, UA Innum 0 - 5 /HPF 03/25/2017 15:45 EDT [facility] Squam Epithel, UA Frequent(A) None seen /HPF 03/25/2017 15:45 EDT [facility] Renal Epithel, UA None seen None seen /HPF 03/25/2017 15:45 EDT [facility] Bacteria, UA None seen None seen /HPF 03/25/2017 15:45 EDT [facility] Crystals, UA None seen /HPF 03/25/2017 15:45 EDT [facility] Hyaline Casts, UA None seen /LPF 03/25/2017 15:45 EDT [facility] UA Comment Microscopic results 03/25/2017 14:59 T [facility] Comment: are unreliable on urines unrefrig >2hrs or refrig >8hrs. Urine specimen (specimen) URINE / Unknown 03/25/2017 15:07 EDT 03/25/2017 15:23 EDT Wild Reyes PA-C URINALYSIS ORDERABLES Final R esult [facility] [address] [place] [address] * (ABNORMAL) HEMAGRAM AND DIFFERENTIAL (03/25/2017 15:06 EDT) WBC 1.83(L) 4.0 - 12.4 K/cmm 03/25/2017 15:36 T [facility] RBC 4.12 3.86 - 5.04 M/cmm 03/25/2017 15:36 [facility] Hemoglobin 11.7 11.6 - 15.2 gm/dl 03/25/2017 15:36 [facility] HCT 34.7(L) 34.9 - 44.4 % 03/25/2017 15:36 [facility] MCV 84 81 - 98 fl 03/25/2017 15:36 T [facility] MCH 28.4 26.7 - 33.3 pg 03/25/2017 15:36 T [facility] MCHC 33.7 32.1 - 35.9 gm/dl 03/25/2017 15:36 [facility] RDW-CV 14.5 11.7 - 14.6 % 03/25/2017 15:36 [facility] RDW-SD 44.3 37.6 - 50.3 fl 03/25/2017 15:36 [facility] PLT 48(L) 141 - 377 K/cmm 03/25/2017 15:36 [facility] MPV 10.6 9.5 - 12.7 fl 03/25/2017 15:36 [facility] Neutrophils 77.0 % 03/25/2017 16:02 [facility] Lymphocytes 19.0 % 03/25/2017 16:02 [facility] Monocytes 4.0 % 03/25/2017 16:02 [facility] ABS Neutrophils 1.41(L) 2.20 - 8.85 K/cmm 03/25/2017 16:02 [facility] ABS Lymphs 0.35(L) 1.09 - 3.30 K/cmm 03/25/2017 16:02 [facility] ABS Monocytes 0.07(L) 0.1 - 0.8 K/cmm 03/25/2017 16:02 [facility] Toxic Granulation Present 017 16:02 [facility] Vacuolization Present 03/25/2017 16:02 [facility] Type of Diff: Manual 03/25/2017 16:02 [facility] Blood specimen (specimen) BLOOD SPECIMEN / Unknown 03/25/2017 15:06 EDT 03/25/2017 15:23 EDT us Wild Reyes PA-C PACKAGES & DNA PROBE ORDERABL ES Final Result [facility] [facility] [address] [place] [address] * BASIC METABOLIC PANEL (03/25/2017 15:06 EDT) Sodium 143 136 - 145 mEq/L 03/25/2017 15:47 [facility] Potassium 4.0 3.5 - 5.0 mEq/L 03/25/2017 15:47 [facility] Chloride 107 96 - 110 mEq/L 03/25/2017 15:47 [facility] CO2 26 22 - 32 mEq/L 03/25/2017 15:47 [facility] BUN 14 10 - 26 mg/dl 03/25/2017 15:47 [facility] Creatinine 0.70 0.52 - 1.04 mg/dl 03/25/2017 15:47 [facility] GFR, Calculated 97 >60 ml/min/1.7 3m2 03/25/2017 15:47 [facility] Comment: eGFR calculated using CKD-EPI equation for non Americans. Multiply eGFR by 1.16 for Americans. Calcium 9.0 8.5 - 10.5 mg/dl 03/25/2017 15:47 [facility] Calculated Calcium 9.0 8.5 - 10.5 mg/dl 03/25/2017 15:47 [facility] Glucose, Serum 82 70 - 100 mg/dl 03/25/2017 15:47 [facility] Fasting? Unknown 03/25/2017 15:23 [facility] Blood specimen (specimen) BLOOD SPECIMEN / Unknown 03/25/2017 15:06 EDT 03/25/2017 15:23 EDT Wild Reyes PA-C CHEMISTRY & BLOOD GAS ORDERAB LES Final Result [facility] [address] [place] [address] * POCT TEST, CLINITEK (03/25/2017 14:47 EDT) UPT Result Neg Neg 03/25/2017 15:04 [facility] control specialist ID [id number] 03/25/2017 15:04 [facility] Comment:Test performed at [facility] Urine specimen (specimen) URINE / Unknown 03/25/2017 14:47 EDT 03/25/2017 15:04 EDT Wild Reyes PA-C POINT OF CARE TEST ORDERABLES Final Result Performing Organization Address [facility]/State/ZIP Co de Phone Number [facility] [address] [place] [address] * (ABNORMAL) POCT URINE DIPSTICK (03/25/2017 14:47 EDT) Color Red 03/25/2017 14:59 EDT [facility] Clarity, UA SLIGHTLY CLOUDY 03/25/2017 14:59 EDT [facility] Glucose Neg Neg 03/25/2017 14:59 EDT [facility] Bilirubin Neg Neg 03/25/2017 14:59 EDT [facility] Ketones Neg Neg 03/25/2017 14:59 T [facility] Specific [place] 1.015 1.001 - 1.035 03/25/2017 14:59 EDT [facility] Blood 3+(A) Neg 03/25/2017 14:59 T [facility] pH 7.5 4.6 - 8.0 03/25/2017 14:59 T [facility] Protein 2+(A) Neg 03/25/2017 14:59 T [facility] Urobilinogen 1.0 0.2 - 1.0 E.U./dl 03/25/2017 14:59 T [facility] Nitrite Neg Neg 03/25/2017 14:59 T [facility] Leuk Esterase Trace(A) Neg 03/25/2017 14:59 T [facility] control specialist ID [id number] 03/25/2017 14:59 T [facility] Comment:Test performed at [facility] Urine specimen (specimen) URINE / Unknown 03/25/2017 14:47 EDT 03/25/2017 14:59 EDT Wild Reyes PA-C POINT OF CARE TEST ORDERABLES Final Result [facility] [address] [place] [address] documented in this encounter Visit Diagnoses Diagnosis Flank pain- Primary Abdominal pain, unspecified site Hematuria Hematuria, unspecified documented in this encounter Administered Medications Inactive Administered Medications - up to 3 most recent administrations Medication Order MAR Action Action Date Dose Rate Site HYDROmorphone (DILAUDID) injection 0.5 mg 0.5 mg, intravenous, NOW X1, 1 dose, On Tue03/25/17 at 1500, STAT Given 03/25/2017 15:50 EDT 0.3 mg Given 03/25/2017 15:20 EDT 0.2 mg ondansetron (PF) (ZOFRAN) injection 4 mg 4 mg, intravenous, NOW X1, 1 dose, On Tue03/25/17 at 1500, STAT Given 03/25/2017 15:20 EDT 4 mg sodium chloride 0.9 % BOLUS 1,000 mL 1,000 mL, intravenous, Once (Without Time Specified), 1 dose, Starting on Tue03/25/17 at 1455, Until Tue03/25/17 at 1654, STAT New Bag 03/25/2017 15:20 EDT 1,000 mL documented in this encounter Active and Recently Administered Medications Times are shown in EDT. Scheduled Medication Order 03/23/2017 03/24/2017 03/25/2017 HYDROmorphone (DILAUDID) injection 0.5 mg (COMPLETED) 0.5 mg, intravenous, NOW X1, 1 dose, On Tue03/25/17 at 1500, STAT 1520 (Given - Provid er: Leo Carney RN)1550 (Given - Provider: Leo Carney RN) ondansetron (PF) (ZOFRAN) injection 4 mg (COMPLETED) 4 mg, intravenous, NOW X1, 1 dose, On Tue03/25/17 at 1500, STAT 1520 (Given - Provid er: Leo Carney RN) sodium chloride 0.9 % BOLUS 1,000 mL (COMPLETED) 1,000 mL, intravenous, Once (Without Time Specified), 1 dose, Starting on Tue03/25/17 at 1455, Until Tue03/25/17 at 1654, STAT 1520 (New Bag - Prov ider: Leo Carney RN)1654 (Completed - Provider: Kendrick Dominguez RN) documented in this encounter Orders Nursing Count Last Ordered Date First Orde red Date INSERT PERIPHERAL IV 1 03/25/2017 documented in this encounter Care Teams Director Of Retail Analytics Relationship Specialty Start Date End Date None, Provider PCP - General 03/25/17 09/08/17 documented as of this encounter
--- OUTSIDE RECORDS SUMMARY | 2024-11-22 17:29 | XMS_ITS | Encounter Summary ---
Author Organization [facility] Address [address] [place] [address] Care Team Providers Care Oncology Rep Specialist Name Role Phone None, Provider Primary Care Provider Unavailabl e Reason for Visit * Reason Onset Date Comments Appointment Related 05/10/2017 sooner appoi ntment Encounter Details Date Type Department Care Team (Late st Contact Info) Description 05/10/2017 Telephone [facility] Hematology & Oncology - [facility] [address] [place] [address] Starr Paige MD [address] [place], [place] [phone] Appointment Related (sooner appointment) Social History Tobacco Use Types Packs/Day Years [...] * Telephone Encounter - Juana Cuellar - 05/11/2017 1320 EDT Called and spoke to patient. Informed her I do not have a cancellation and that she is on our cancellation list. Also recommended that she find a PCP office. * Telephone Encounter - Sharon Hernandez - 05/10/2017 1258 EDT Reason for Call: Appointment Related (sooner appointment) Summary/Symptoms: Patient was told to call and check to see if there have been any cancellations. She is scheduled for June. Sharon Hernandez 05/10/2017 12:58 documented in this encounter Plan of Treatment Upcoming Encounters Date Type Department Care Team (Late st Contact Info) Description 01/04/2025 13:00 EST Office Visit [facility] Ophthalmology - [address] [address] Gagandeep Rome MD [address] [facility], [address] [place] [phone] 02/11/2025 13:30 EDT Telemedicine [facility] Hematology & Oncology - [address] [phone] Dana Padilla MD [address] [facility], [address] [place] [phone] documented as of this encounter Visit Diagnoses Not on filedocumented in this encounter Care Teams Oncology Rep Specialist Relationship Specialty Start Date End Date None, Provider PCP - General 03/25/17 09/08/17 documented as of this encounter
--- OUTSIDE RECORDS SUMMARY | 2024-11-22 17:29 | XMS_ITS | Encounter Summary ---
Author Organization [facility] Address [address] [place] [address] Care Team Providers Care Lead Medical Technologist Name Role Phone None, Provider Primary Care Provider Unavailabl e Reason for Visit * Reason Comments Loss of Consciousness EMS from home afte r syncopal event. Pt states earlier she felt palpitations and dizzy, got up to get water and doesn't remember anything further, my roommate said my head bounced off the floor. 04/30 BRIGHT. EMS FS 57. Fourth time in 6 months having hypoglycemic event, denies diabetic hx. No PO intake today d/t decreased appetite from abdominal pain. +N/V. Encounter Details Date Type Department Care Team (Late st Contact Info) Description 02/01/2017 19:24 EDT - 02/02/2017 0:11 EDT Emergency [facility] Emergency Department - [address] [id number] Thao Camarena MD [address] [facility], Level [address] [place] [address] Emergency, MD Rolando Pain of upper abdomen (Primary Dx); Possible Urinary tract infection with hematuria, site unspecified Discharge Disposition: Home or Self Care Social [...] Sign Reading Time Taken Comments Blood Pressure 106/68 02/01/20175 EDT Pulse 77 02/01/20171932 EDT Temperature 36.1 ??C (97 ??F) 02/01/2017 235 EDT Respiratory Rate 13 02/01/20172354 EDT Oxygen Saturation 98% 02/01/20172354 EDT Inhaled Oxygen Concentration - - Weight 88 kg (194 lb) 02/01/20171932 EDT Height 165.1 cm (5' 5) 02/01/20171932 EDT Body Mass Index 32.28 02/01/2017 193 EDT documented in this encounter Functional Status * Are you deaf or do you have serious difficulty hearing? Answer Date of Assessment Author No 08/13/2015 12:00 Rivera Tolbert RN * Are you blind or do you have serious difficulty seeing, even when wearing glasses? Answer Date of Assessment Author No 08/13/2015 12:00 Rivera Tolbert RN * Do you have serious difficulty walking or climbing stairs? (5 years old or older) Answer Date of Assessment Author No 08/13/2015 12:00 Rivera Tolbert RN * Do you have difficulty dressing or bathing? (5 years old or older) Answer Date of Assessment Author No 08/13/2015 12:00 Rivera Tolbert RN * Because of a physical, mental, or emotional condition, does this person have difficulty doing errands alone such as visiting a doctor's office or shopping? Answer Date of Assessment Author No 08/18/2015 16:14 Rivera Tolbert RN documented as of this encounter Mental Status * Because of a physical, mental, or emotional condition, does this person have serious difficulty concentrating, remembering, or making decisions? Answer Entry Date Author No 08/18/2015 16:14 Rivera Tolbert RN documented in this encounter Discharge Diagnoses Diagnosis R55 Syncope and collapse-R55[ICD-10-CM] R10.10 Upper abdominal pain, unspecified-R10.10[ICD-10-CM] R31.9 Hematuria, unspecified-R31.9[ICD-10-CM] S00.31XA Abrasion of nose, initial encounter-S00.31XA[ICD-10-CM] W18.39XA Other fall on same level, initial encounter-W18.39XA[ICD-10-CM] J45.909 Unspecified asthma, uncomplicated-J45.909[ICD-10-CM] Z90.49 Acquired absence of other specified parts of digestive tract-Z90.49[ICD-10-CM] K74.60 Unspecified cirrhosis of liver-K74.60[ICD-10-CM] Z88.6 Allergy status to analgesic agent status-Z88.6[ICD-10-CM] Z88.5 Allergy status to narcotic agent status-Z88.5[ICD-10-CM] Z88.2 Allergy status to sulfonamides status-Z88.2[ICD-10-CM] F17.200 Nicotine dependence, unspecified, uncomplicated-F17.200[ICD-10-CM] documented in this encounter Discharge Instructions * Discharge Instructions* Thao Camarena MD - 02/01/2017 23:57 EDT Urine culture from last week showed possible urinary tract infection. Take the amoxicillin 500 mg 3times each day for 7 days. Be sure to drink plenty of fluids. Use the oxycodone 5 mg every 6 hours as needed for pain. Use the ondansetron 4 mg every 8 hours as needed for nausea or vomiting. Keep your appointment next week at [facility]. Call sooner or return to this emergency department as needed if symptoms worsen or change in character. documented in this encounter Medications at Time of Discharge albuterol 90 mcg/actuation inhaler Inhale 2 Puffs as directed every 4 hours as needed. 1 ALPRAZolam (XANAX) 1 mg tablet Take 1 mg by mouth 3 times daily. 7 amoxicillin (AMOXIL) 500 mg capsule Take 1 Cap by mouth 3 times daily for 7 days. 21 Cap 02/01/2017 7 ferrous gluconate (FERGON) 324 mg (38 [...] needed for Nausea. 12 Tab 02/01/2017 7 oxyCODONE (ROXICODONE) 5 mg immediate release tablet Take 1 Tab by mouth every 6 hours as needed for Pain. Daily Max: 20 mg 12 Tab 02/01/2017 7 pantoprazole (PROTONIX) 40 mg tablet Take 40 mg by mouth daily. 9 phenazopyridine (PYRIDIUM) 200 mg tablet Take 1 Tab by mouth 3 times daily as needed for Pain. 9 Tab 01/03/2017 7 rifAXImin (XIFAXAN) 550 mg tablet Take 550 mg by mouth 2 times daily 9 documented as of this encounter Ordered Prescriptions Prescription Sig Dispense Quantity Refills Last Filled Start Date End Date ondansetron (ZOFRAN-ODT) 4 mg disintegrating tablet Take 1 Tab by mouth every 8 hours as needed for Nausea. 12 Tab 02/01/2017 7 amoxicillin (AMOXIL) 500 mg capsule Take 1 Cap by mouth 3 times daily for 7 days. 21 Cap 02/01/2017 7 oxyCODONE (ROXICODONE) 5 mg immediate release tablet Take 1 Tab by mouth every 6 hours as needed for Pain. Daily Max: 20 mg 12 Tab 02/01/2017 7 documented in this encounter Discharge Disposition Disposition Code Departure Means Destination Home or Self Care Walk-out Home documented in this encounter ED Notes * Myriam Fountain, KENN - 02/02/2017 0010 EDT Ordered for discharge. Aftercare instructions, follow up, s/s to return, and prescriptions reviewedwith pt. VSS, IV removed, ambulatory upon discharge. * Myriam Fountain RN - 02/01/20171937 EDT 12 Lead EKG Performed by Myriam Fountain RN and shown to Thao Camarena MD. * Thao Camarena MD - 02/01/20171932 EDT DOS: 02/01/2017 Chief Complaint Patient presents with ??? Loss of Consciousness EMS from home after syncopal event. Pt states earlier she felt palpitations and dizzy, got up to get water and doesn't remember anything further, my roommate said my head bounced off the floor. 04/30 BRIGHT. EMS FS 57. Fourth time in 6 months having hypoglycemic event, denies diabetic hx. No PO intake today d/t decreased appetite from abdominal pain. +N/V. HPI HPI Comments: I, Alfa Sukhdeep, am scribing for Thao Camarena MD while she is personally performing the service. Alfa Tarango 02/01/2017 19:34 Tara Boothe is a 56 y.o. 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 diff, appendectomy, and cholecystectomy. She was seen in the ED on 01/25 with upper abdominal pain, as well as hematuria. Patient now presents to the ED via ambulance today after a syncopal event. She describes palpitations and light- headedness prior to the episode, but did not notice markedly worse symptoms right beforehand. She states that she does not remember the event. Her roommate reported that her head hit the floor when she fell. Patient reports continued abdominal pain that radiates to her right flank, loss of appetite, and hematuria. She also notes ongoing fatigue. Patient is not complaining of a headache in the ED. Patient denies neck pain, shortness of breath, or fever. She is a current every day smoker. The history is provided by the patient and medical records. Loss of Consciousness Progression: Resolved Context: recent illness Associated symptoms: abdominal pain, light-headedness, nausea, palpitations and vomiting Associated symptoms: no fever and no visual change Review of Systems Review of Systems Constitutional: Positive for appetite change (loss of appetite) and fatigue. Negative for fever. Respiratory: Negative for shortness of breath. Cardiovascular: Positive for palpitations. Gastrointestinal: Positive for abdominal pain, nausea and vomiting. Genitourinary: Positive for flank pain (radiating from abdomen) and hematuria. Negative for difficulty urinating. Musculoskeletal: Negative for neck pain. Neurological: Positive for loss of consciousness, syncope and light-headedness. All other systems reviewed [...] ??C (97 ??F) Temp src: Oral Pulse: 77 Heart Rate: 72 BPM Resp: 13 SpO2: 98 % BP: 106/68 BP MAP: 80 mm Hg BP Device: BP Machine Patient Position: Semi fowlers BP Cuff Location: Left arm O2 Device: None (Room air) Physical Exam Constitutional: She is oriented to person, place, and time. She appears well- developed and well-nourished. She is cooperative. Cervical collar in place. HENT: Head: Normocephalic. Nose: Nose normal. Mouth/Throat: Oropharynx is clear and moist. Eyes: Conjunctivae and EOM are normal. Pupils are equal, round, and reactive to light. Right eye exhibits no discharge. Left eye exhibits no discharge. No scleral icterus. Cardiovascular: Normal rate, regular rhythm, S1 normal, S2 normal and normal heart sounds. Exam reveals no friction rub. No murmur heard. Pulmonary/Chest: Effort normal and breath sounds normal. No respiratory distress. She has no decreased breath sounds. She has no wheezes. She has no rhonchi. She has no rales. Abdominal: Soft. Bowel sounds are normal. She exhibits no distension. There is tenderness (across the upper abdomen). There is no guarding. Musculoskeletal: Normal range of motion. She exhibits no edema or tenderness. Neurological: She is alert and oriented to person, place, and time. No cranial nerve deficit or sensory deficit. Coordination normal. Skin: Skin is warm and dry. Abrasion (tiny abrasion at the inferior aspect of the nasal septum) noted. No erythema. No pallor. Psychiatric: She has a normal mood and affect. Her behavior is normal. Thought content normal. Nursing note and vitals reviewed. RESULTS EKG orders: EKG 12-LEAD The patient had an EKG which was independently reviewed and interpreted by me. (Sinus rhythm at 82 bpm with sinus variability. Conduction intervals are normal. Mild non-specific T-wave flattening.). Radiology orders: CT HEAD WO CONTRAST Patient had a CT head w/o contrast, which was significant for no acute findings. Patient had CT that was obtained, reviewed, and interpreted by myself and discussed with a radiologist. Please see radiology report for further details. ED Lab Results Labs Reviewed GLUCOSE, GLUCOMETER - Abnormal Result Value Status Glucose, Fingerstick 123 (*) Final Outboard Motor Assembler ID [id number] Final HEMAGRAM AND DIFFERENTIAL - Abnormal WBC 1.36 (*) Final PLT 44 (*) Final ABS Neutrophils 1.04 (*) Final ABS Lymphs 0.24 (*) Final ABS Monocytes 0.04 (*) Final ABS Eosinophils 0.01 (*) Final RBC 4.36 Final Hemoglobin 12.4 Final HCT 37.6 Final MCV 86 Final MCH 28.4 Final MCHC 33.0 Final RDW-CV 14.6 Final RDW-SD 46.2 Final MPV 10.8 Final Neutrophils 76.0 Final Lymphocytes 18.0 Final Monocytes 3.0 Final Eosinophils 1.0 Final Basophils 2.0 Final ABS Basophils 0.03 Final Vacuolization Present Final Type of Diff: Manual Final URINALYSIS MICROSCOPIC ONLY - Abnormal Squam Epithel, UA Many (*) Final Bacteria, UA Rare (*) Final WBC, UA 1 to 5 Final RBC, UA >50 Final Renal Epithel, UA None seen Final Crystals, UA None seen Final Casts, UA None seen Final UA Comment Microscopic results Final Mucus, UA Present Final BACTERIAL CULTURE, URINE COMPREHENSIVE METABOLIC PANEL (CMP) Potassium 3.8 Final Sodium 144 Final Chloride 106 Final CO2 31 Final Total Alkaline Phosphatase 100 Final Bilirubin, Total 0.7 Final AST 22 Final ALT 32 Final Albumin 4.3 Final Total Protein 7.4 Final Creatinine 0.80 Final GFR, Calculated 83 Final BUN 12 Final Calcium 9.3 Final Calculated Calcium 9.1 Final Glucose, Serum 91 Final Fasting? Unknown Final POCT GLUCOSE Relevant Data Procedures ED COURSE A medical screening exam was performed. Brief syncope which occurred in setting of episode of abdominal pain and nausea. EKG was reviewed. Patient had labs that were reviewed independently by myself, significant for WBC is 1.36, hematocrit of 37.6%, and platelets at 44,000. Her urine micro shows 1 to 5 WBCs and >50 RBCs. Patient was hydrated with 1 L NaCl bolus IV and treated with Dilaudid 1 mg IV for pain and Zofran 4mg IV for nausea. CT head was reviewed. (22:26) Patient reports continued pain and nausea after receiving the medications. She was given another 4 mg Zofran IV. She was also treated with another 1 mg Dilaudid IV, 25 g Benadryl IV, and 10 mg Compazine IV. (23:47) She is sleeping comfortably on reassessment. After she was awoken, she reports that she feels significantly improved. I discussed the results of her labs as indicating a UTI, which I will treat. Patient has an appointment next week at [facility]. She also has follow-up scheduled with hematology and GI. Patient was discharged with an amoxicillin starter pack and prescription. She was also advised to use oxycodone as needed for pain and ondansetron for nausea.vomiting. She will follow-up with [facility] as scheduled. ED return precautions were reviewed prior to discharge. Urine culture is pending. ASSESSMENT AND PLAN Final diagnoses: Pain of upper abdomen Possible Urinary tract infection with hematuria, site unspecified DISPOSITION: Discharged The patient's pain was managed to an adequate level weighing risk vs. benefit of further medications. Upon departure from the Emergency Department, the patient's pain was 3 on a zero to ten scale. Condition at departure from the Emergency Department: Improved PCP: Provider None MDM Number of Diagnoses or Management Options Pain of upper abdomen: Possible Urinary tract infection with hematuria, site unspecified: Diagnosis management comments: 5 Amount and/or Complexity of Data Reviewed Clinical lab tests: ordered and reviewed Tests in the radiology section of CPT??: ordered and reviewed Tests in the medicine section of [facility]??: reviewed and ordered Review and summarize past medical records: yes Independent visualization of images, tracings, or specimens: yes This documentation is recorded by Alfa Tarango acting as Scribe under the direction and presenceof Thao Camarena MD. Thao Camarena MD: I personally performed the services recorded by the scribe in my presence. I confirm the scribe's documentation has been reviewed by me to accurately and completely record my work, treatment, procedures, and medical decision making. 02/04/2017 16:41 No flowsheet data found. documented in this encounter Plan of Treatment Upcoming Encounters Date Type Department Care Team (Late st Contact Info) Description 01/04/2025 13:00 EST Office Visit [facility] Ophthalmology - [address] [phone] Gagandeep Rome MD [address] [place] [address] [address] [place] [id number] 02/11/2025 13:30 EDT Telemedicine [facility] Hematology & Oncology - [address] [phone] Dana Padilla MD [address] [place] [address], [facility] [address] [place] [address] documented as of this encounter Procedures Procedure Name Priority Date/Time Associated Diagnosis Comments ECG REPORT - SCANNED 02/22/2017 8:[address] HEAD WO CONTRAST STAT 02/01/2017 2 0:48 EDT URINE SEDIMENT (MICRO) WITHOUT REFLEX TO CULTURE STAT 02/01/2017 19:52 EDT COMPLETE BLOOD COUNT AND DIFFERENTIAL STAT 02/01/2017 19:52 EDT BACTERIAL CULTURE, URINE STAT 02/01/2017 19:52 EDT COMPREHENSIVE METABOLIC PANEL (CMP) STAT 02/01/2017 19:52 EDT EKG 12-LEAD STAT 02/01/2017 19:34 EDT GLUCOSE, GLUCOMETER Routine 02/01/2017 1 9:28 EDT documented in this encounter Results * ECG REPORT - SCANNED (02/22/2017 8:04 EDT) 02/22/2017 8:04 EDT us Scan 2 Human Resources Recruiter PROCEDURE/MINOR SURGICAL OR DERABLES Final Result * CT HEAD WO CONTRAST (02/01/2017 20:48 EDT) Anatomical Region Laterality Modality Other 02/01/2017 20:4 8 EDT 02/02/2017 7:24 EDT Narrative 02/02/2017 7:[address] HEAD WO CONTRAST ??02/01/2017 8:48 PM Signs and Symptoms/Comments: Headache, thrombocytopenia, status post syncope with CHI Comparison: CT head dated 08/18/2015 Technique: Axial CT images of the head were acquired from the vertex through the foramen magnum and reconstructed in axial and coronal projections using bone and soft tissue filters. No IV contrast was administered. Findings: No intracranial hemorrhage is present. There is no mass or midline shift and the basilar cisterns are patent. Age-related sulcal and ventricular enlargement is unchanged from prior CT. Queen-white differentiation is preserved. The globes and orbits are intact. Minimal paranasal sinus mucosal thickening is noted. The middle ears and mastoid air cells are clear. The bones and extracranial soft tissues are unremarkable. Impression: No acute findings. I have personally reviewed the images and the above interpretation and agree with the findings. Procedure Note Vazquez Seay MD - 02/02/2017 CT HEAD WO CONTRAST 02/01/2017 8:48 PM Signs and Symptoms/Comments: Headache, thrombocytopenia, status post syncope with CHI Comparison: CT head dated 08/18/2015 Technique: Axial CT images of the head were acquired from the vertex through the foramen magnum and reconstructed in axial and coronal projections using bone and soft tissue filters. No IV contrast was administered. Findings: No intracranial hemorrhage is present. There is no mass or midline shift and the basilar cisterns are patent. Age-related sulcal and ventricular enlargement is unchanged from prior CT. Queen-white differentiation is preserved. The globes and orbits are intact. Minimal paranasal sinus mucosal thickening is noted. The middle ears and mastoid air cells are clear. The bones and extracranial soft tissues are unremarkable. Impression: No acute findings. I have personally reviewed the images and the above interpretation and agree with the findings. Thao Camarena MD IMG CT ORDERABLES Final Res ult * BACTERIAL CULTURE, URINE (02/01/2017 19:52 EDT) Result Mixed organisms, culture interpretation difficult. Multiple bacterial morphotypes present. Suggest appropriate recollection with timely delivery to the laboratory, if clinically indicated. 02/03/2017 7:36 EDT [facility] Urine specimen (specimen) URINE / Unknown 02/01/2017 19:52 EDT 02/01/2017 20:01 EDT Thao Camarena MD MICROBIOLOGY - GENERAL PSYCHIATRIC Final Result [facility] [address] [place] [address] * (ABNORMAL) URINALYSIS MICROSCOPIC ONLY (02/01/2017 19:52 EDT) WBC, UA 1 to 5 0 - 5 /HPF 02/01/2017 20:11 EDT [facility] RBC, UA >50 0 - 5 /HPF 02/01/2017 20:11 EDT [facility] Squam Epithel, UA Many(A) None seen /HPF 02/01/2017 20:11 EDT [facility] Renal Epithel, UA None seen None seen /HPF 02/01/2017 20:11 EDT [facility] Bacteria, UA Rare(A) None seen /HPF 02/01/2017 20:11 [facility] Crystals, UA None seen /HPF 02/01/2017 20:11 [facility] Hyaline Casts, UA None seen /LPF 02/01/2017 20:11 [facility] UA Comment Microscopic results 02/01/2017 19:46 T [facility] Comment: are unreliable on urines unrefrig >2hrs or refrig >8hrs. Mucus, UA Present 02/01/2017 20:11 [facility] Urine specimen (specimen) URINE / Unknown 02/01/2017 19:52 EDT 02/01/2017 20:01 EDT Thao Camarena MD URINALYSIS ORDERABLES Final Result Performing Organization Address City/State/[facility] Co de Phone Number [facility] [address] [place] [address] * (ABNORMAL) HEMAGRAM AND DIFFERENTIAL (02/01/2017 19:52 EDT) WBC 1.36(L) 4.0 - 12.4 K/cmm 02/01/2017 20:28 [facility] RBC 4.36 3.86 - 5.04 M/cmm 02/01/2017 20:28 [facility] Hemoglobin 12.4 11.6 - 15.2 gm/dl 02/01/2017 20:28 [facility] HCT 37.6 34.9 - 44.4 % 02/01/2017 20:28 [facility] MCV 86 81 - 98 fl 02/01/2017 20:28 [facility] MCH 28.4 26.7 - 33.3 pg 02/01/2017 20:28 [facility] MCHC 33.0 32.1 - 35.9 gm/dl 02/01/2017 20:28 [facility] RDW-CV 14.6 11.7 - 14.6 % 02/01/2017 20:28 [facility] RDW-SD 46.2 37.6 - 50.3 fl 02/01/2017 20:28 [facility] PLT 44(L) 141 - 377 K/cmm 02/01/2017 20:28 [facility] MPV 10.8 9.5 - 12.7 fl 02/01/2017 20:28 [facility] Neutrophils 76.0 % 02/01/2017 20:53 [facility] Lymphocytes 18.0 % 02/01/2017 20:53 [facility] Monocytes 3.0 % 02/01/2017 20:53 [facility] Eosinophils 1.0 % 02/01/2017 20:53 [facility] Basophils 2.0 % 02/01/2017 20:53 [facility] ABS Neutrophils 1.04(L) 2.20 - 8.85 K/cmm 02/01/2017 20:53 [facility] ABS Lymphs 0.24(L) 1.09 - 3.30 K/cmm 02/01/2017 20:53 [facility] ABS Monocytes 0.04(L) 0.1 - 0.8 K/cmm 02/01/2017 20:53 [facility] ABS Eosinophils 0.01(L) 0.03 - 0.61 K/cmm 02/01/2017 20:53 [facility] ABS Basophils 0.03 0.01 - 0.11 K/cmm 02/01/2017 20:53 [facility] Vacuolization Present 02/01/2017 20:53 [facility] Type of Diff: Manual 02/01/2017 20:53 [facility] Blood specimen (specimen) BLOOD SPECIMEN / Unknown 02/01/2017 19:52 EDT 02/01/2017 20:19 EDT us Thao Camarena MD PACKAGES & DNA PROBE ORDERA BLES Final Result [facility] [address] [place] [address] * COMPREHENSIVE METABOLIC PANEL (CMP) (02/01/2017 19:52 ED) Potassium 3.8 3.5 - 5.0 mEq/L 02/01/2017 20:33 [facility] Sodium 144 136 - 145 mEq/L 02/01/2017 20:33 [facility] Chloride 106 96 - 110 mEq/L 02/01/2017 20:33 [facility] CO2 31 22 - 32 mEq/L 02/01/2017 20:33 [facility] Comment:Note new reference r migdalia 09/07/16 Total Alkaline Phosphatase 100 38 - 126 U/L 02/01/2017 20:33 [facility] Bilirubin, Total 0.7 <1.4 mg/dl 02/02/20 17 20:33 [facility] AST 22 15 - 46 U/L 02/01/2017 20:33 [facility] ALT 32 <53 U/L 02/01/2017 20:33 [facility] Albumin 4.3 3.4 - 4.9 g/dl 02/01/2017 20:33 [facility] Total Protein 7.4 6.3 - 8.2 g/dl 02/01/2017 20:33 [facility] Creatinine 0.80 0.52 - 1.04 mg/dl 02/01/2017 20:33 [facility] GFR, Calculated 83 >60 ml/min/1.7 3m2 02/01/2017 20:33 [facility] Comment: eGFR calculated using CKD-EPI equation for non Americans. Multiply eGFR by 1.16 for Americans. BUN 12 10 - 26 mg/dl 02/01/2017 20:33 [facility] Calcium 9.3 8.5 - 10.5 mg/dl 02/01/2017 20:33 [facility] Calculated Calcium 9.1 8.5 - 10.5 mg/dl 02/01/2017 20:33 [facility] Comment: Note new formula for calculation in use 08/25/2016 Glucose, Serum 91 70 - 100 mg/dl 02/01/2017 20:33 EDT [facility] Fasting? Unknown 02/01/2017 20:19 EDT [facility] Blood specimen (specimen) BLOOD SPECIMEN / Unknown 02/01/2017 19:52 EDT 02/01/2017 20:19 EDT us Thao Camarena MD CHEMISTRY & BLOOD GAS ORDER YANN Final Result [facility] [address] [place] [address] * EKG 12-LEAD (02/01/2017 19:34 EDT) 02/01/2017 19:3 4 EDT Narrative [facility] EKG - 02/21/2017 11:24 EDT ?[facility] Emergency ? Test Date: ?2017-02-01 Pat Name: ? PHYLISS BOOTHE ?Department: ?? ED ? Room: ? AC17 Gender: ? F ?News Assistant: ?? [id number] : ?1960 ? Requested By: ODALIS SANCHEZ Order Number: [id number] ? Reading : ?? LAURENT GREGG SA, MD ? Measurements Intervals ?[place] ? Rate: ? 82 ? P: ?57 ND: ? 156 ?QRS: ?67 QRSD: ? 95 ? T: ?49 QT: ? 369 ? QTc: ?432 ? Interpretive Statements SINUS RHYTHM WITH SINUS ARRHYTHMIA NONSPECIFIC T-WAVE ABNORMALITY Artifact makes interpretation difficult. Compared to ECG 08/18/2015 17:14:46 Sinus arrhythmia now present T-wave abnormality now present This is a preliminary report. ??Edited by THAO GAGNON MD on 02-03-17 09:20:09 EDT. I reviewed the tracing and have either agreed or edited the findings in this report. Electronically Signed On 02-21-17 11:24:41 EDT by LAURENT GREGG SA, MD. Procedure Note Laurent Lewis Sa, MD - 02/21/2017 [facility] Emergency Test Date: 2017-02-01 Pat Name: TARA BOOTHE Department: ED Room: [facility] Gender: F News Assistant: [id number] : 1960 Requested By: ODALIS SANCHEZ Order Number: [id number] Reading MD: LAURENT SANDERSON Measurements Intervals [place] Rate: 82 P: 57 ND: 156 QRS: 67 QRSD: 95 T: 49 QT: 369 QTc: 432 Interpretive Statements SINUS RHYTHM WITH SINUS ARRHYTHMIA NONSPECIFIC T-WAVE ABNORMALITY Artifact makes interpretation difficult. Compared to ECG 08/18/2015 17:14:46 Sinus arrhythmia now present T-wave abnormality now present This is a preliminary report. Edited by THAO GAGNON MD on 9:20:09 EDT. I reviewed the tracing and have either agreed or edited the findings inthis report. Electronically Signed On 02-21-17 11:24:41 EDT by LAURENT SAXENA MD. us Latrell Easley MD CARDIAC ECG ORDERABLES Fi nal Result Performing Organization Address City/[facility]/ZIP Co de Phone Number [facility] EKG * (ABNORMAL) GLUCOSE, GLUCOMETER (02/01/2017 19:28 EDT) [facility] Signature Glucose, Fingerstick 123(H) 70 - 100 mg/dl 02/01/2017 19:28 EDT [facility]OR[facility] SERVICES Outboard Motor Assembler ID [id number] 02/01/2017 19:28 EDT [facility] Comment:[facility] B[facility] SPECIMEN / Unknown 02/01/2017 19:28 EDT 02/01/2017 19:29 EDT us Provider Unknown CHEMISTRY & BLOOD GAS ORDERA BLES Final Result [facility] [address] [place] [address] documented in this encounter Visit Diagnoses Diagnosis Pain of upper abdomen- Primary Abdominal pain, other specified site Possible Urinary tract infection with hematuria, site unspecified documented in this encounter Administered Medications Inactive Administered Medications - up to 3 most recent administrations Medication Order MAR Action Action Date Dose Rate Site Amoxicillin 250 mg Cap STARTER PACK 1 Package, oral, NOW X1, 1 dose, On Tue02/02/17 at 0000, STAT Given 02/02/2017 0:02 EDT 1 Package diphenhydrAMINE (BENADRYL) injection 25 mg 25 mg, intravenous, NOW X1, 1 dose, On 02/01/17 at 2230, STAT Given 02/01/2017 22:31 EDT 25 mg HYDROmorphone (DILAUDID) injection 1 mg 1 mg, intravenous, NOW X1, 1 dose, On 02/01/17 at 2000, STAT Given 02/01/2017 20:21 EDT 1 mg HYDROmorphone (DILAUDID) injection 1 mg 1 mg, intravenous, NOW X1, 1 dose, On Tue02/01/17 at 2230, STAT Given 02/01/2017 22:31 EDT 1 mg ondansetron (PF) (ZOFRAN) injection 4 mg 4 mg, intravenous, NOW X1, 1 dose, On e 02/01/17 at 2000, STAT Given 02/01/2017 20:21 EDT 4 mg ondansetron (PF) (ZOFRAN) injection 4 mg 4 mg, intravenous, NOW X1, 1 dose, On Tue02/01/17 at 2115, STAT Given 02/01/2017 21:35 EDT 4 mg prochlorperazine edisylate (COMPAZINE) injection 10 mg 10 mg, intravenous, NOW X1, 1 dose, On Tue02/01/17 at 2230, STAT Given 02/01/2017 22:31 EDT 10 mg sodium chloride 0.9 % BOLUS 1,000 mL 1,000 mL, intravenous, NOW X1, 1 dose, On e 02/01/17 at 2000, STAT New Bag 02/01/2017 20:11 EDT 1,000 mL documented in this encounter Discontinued Medications Medication Sig Discontinue Reason Start Date End Da te oxyCODONE (ROXICODONE) 5 mg immediate release tablet Take 1 Tab by mouth every 6 hours as needed for Pain. Daily Max: 20 mg 01/26/2017 02/01/2017 ondansetron (ZOFRAN-ODT) 4 mg disintegrating tablet Take 1 Tab by mouth every 8 hours as needed for Nausea. 01/26/2017 02/01/2017 documented as of this encounter Active and Recently Administered Medications Times are shown in EDT. Scheduled Medication Order 01/31/2017 02/01/2017 02/02/2017 Amoxicillin 250 mg Cap STARTER PACK (COMPLETED) 1 Package, oral, NOW X1, 1 dose, On Tue02/02/17 at 0000, STAT 0002 (Given - Provid er: Myriam Fountain RN) diphenhydrAMINE (BENADRYL) injection 25 mg (COMPLETED) 25 mg, intravenous, NOW X1, 1 dose, On Tue02/01/17 at 2230, STAT 2231 (Given - Provider: Myriam Fountain RN) HYDROmorphone (DILAUDID) injection 1 mg (COMPLETED) 1 mg, intravenous, NOW X1, 1 dose, On Tue02/01/17 at 2000, STAT 2020 (Given - Provider: Guadalupe Juan, KENN) HYDROmorphone (DILAUDID) injection 1 mg (COMPLETED) 1 mg, intravenous, NOW X1, 1 dose, On Tue02/01/17 at 2230, STAT 2231 (Given - Provider: Myriam Fountain RN) ondansetron (PF) (ZOFRAN) injection 4 mg (COMPLETED) 4 mg, intravenous, NOW X1, 1 dose, On Tue02/01/17 at 2000, STAT 2020 (Given - Provider: Guadalupe Juan, KENN) ondansetron (PF) (ZOFRAN) injection 4 mg (COMPLETED) 4 mg, intravenous, NOW X1, 1 dose, On Tue02/01/17 at 2115, STAT 2135 (Given - Provider: Guadalupe Juan, RN) prochlorperazine edisylate (COMPAZINE) injection 10 mg (COMPLETED) 10 mg, intravenous, NOW X1, 1 dose, On Tue02/01/17 at 2230, STAT 223 (Given - Provider: Myriam Fountain RN) sodium chloride 0.9 % BOLUS 1,000 mL (COMPLETED) 1,000 mL, intravenous, NOW X1, 1 dose, On Tue02/01/17 at 2000, STAT 2010 (New Bag - Provider: Guadalupe Juan, KENN)2208 (Completed - Provider: Guadalupe Juan, KENN) documented in this encounter Orders Lab Orders Without Results Count Last Ordered D ate First Ordered Date POCT GLUCOSE 1 02/01/2017 documented in this encounter Care Teams Lead Medical Technologist Relationship Specialty Start Date End Date None, Provider PCP - General 01/03/17 02/23/17 documented as of this encounter
--- OUTSIDE RECORDS SUMMARY | 2024-11-22 17:29 | XMS_ITS | Encounter Summary ---
Author Organization [facility] Address [address] [place] [address] Care Team Providers Care Curtain Roller Assembler Name Role Phone None, Provider Primary Care Provider Unavailabl e Reason for Visit * Reason Onset Date Comments Other 04/19/2017 Encounter Details Date Type Department Care Team (Late st Contact Info) Description 04/19/2017 Telephone [facility] Cancer Center Hematology & Oncology - [facility] [address] [place] [address] Devonte Rodriguez RN [address] [place] [address] Other Social History Tobacco Use Types Packs/Day [...] Florentin Edmond, KENN * Do you have serious difficulty [...] * Telephone Encounter - Juana Cuellar - 04/20/2017 0910 EDT Called and spoke to patient. Scheduled her to see Dr. Starr Paige on: Saturday, July 15, 2017 at 1:00 PM. Confirmed her mailing address and sent a New Patient Letter with Questionnaire. Gave her my direct phone number to call with questions. Records in Prism. * Telephone Encounter - Devonte Rodriguez RN - 04/19/2017 1647 EDT Pt advised to keep apt c Dr Paige since our availability is limited. Pt states she is [place] and advised we cannot rebook until June. Pt agreed to this despite problems. documented in this encounter Plan of Treatment Upcoming Encounters Date Type Department Care Team (Late st Contact Info) Description 01/04/2025 13:00 EST Office Visit [facility] [place] [address] Gagandeep Rome MD [address] [place] [address] [address] [place] [phone] 02/11/2025 13:30 EDT Telemedicine [facility] Cancer Center Hematology & Oncology - [address] [phone] Dana Padilla MD [address] [facility], [facility] [address] [place] [address] documented as of this encounter Visit Diagnoses Not on filedocumented in this encounter Care Teams Curtain Roller Assembler Relationship Specialty Start Date End Date None, Provider PCP - General 03/25/17 09/08/17 documented as of this encounter
--- OUTSIDE RECORDS SUMMARY | 2024-11-22 17:29 | XMS_ITS | Encounter Summary ---
Author Organization [facility] Address [address] [place] [id number] Care Team Providers Care Superintendent Operating Name Role Phone None, Provider Primary Care Provider Unavailabl e Reason for Visit * Reason Onset Date Comments Neck Pain 02/17/2017 LEFT Encounter Details Date Type Department Care Team (Late st Contact Info) Description 02/17/2017 Telephone [facility] [address] [place] [address] Jesus Vaughan MD [address] [place] [address], [address] [place] [address] Neck Pain (LEFT) Social History Tobacco Use Types Packs/Day Years [...] Date of Assessment Author No 08/13/2015 12:00 EDT Rivera Argueta RN * Are you blind or do you have serious difficulty seeing, even when wearing glasses? Answer Date of Assessment Author No 08/13/2015 12:00 EDT Rivera Argueta RN * Do you have serious difficulty walking or climbing stairs? (5 years old or older) Answer Date of Assessment Author No 08/13/2015 12:00 EDT Rivera Argueta RN * Do you have difficulty dressing or bathing? (5 years old or older) Answer Date of Assessment Author No 08/13/2015 12:00 EDT Rivera Argueta RN * Because of a physical, mental, or emotional condition, does this person have difficulty doing errands alone such as visiting a doctor's office or shopping? Answer Date of Assessment Author No 08/18/2015 16:14 EDT Rivera Argueta RN documented as of this encounter Mental Status * Because of a physical, mental, or emotional condition, does this person have serious difficulty concentrating, remembering, or making decisions? Answer Entry Date Author No 08/18/2015 16:14 EDT Rivera Argueta RN documented in this encounter Miscellaneous Notes * Telephone Encounter - Allison Farley RN - 02/17/2017 1122 EDT Spoke with patient who states that ~ 6 days ago she began to have left sided neck pain. 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 Patient also reports headaches and a pulling sensation in neck when she turns her head. She is concerned that cyst might be coming back. Advised patient that a recurrent cyst would be rare. Encouraged her to follow up with her PCP for further evaluation. Patient reassured by this and verbalized understanding. No barriers to learning. * Telephone Encounter - Maite Valle - 02/17/2017 1027 EDT Patient calling with concern to increased neck pain and headaches. Neck cyst was removed over a year ago. She's concerned it's related. No neck swelling. Please advise. documented in this encounter Plan of Treatment Upcoming Encounters Date Type Department Care Team (Late st Contact Info) Description 01/04/2025 13:00 EST Office Visit [facility] Ophthalmology - [address] [phone] Gagandeep Rome MD [address] [place] [address], [facility] [address] [place] [phone] 02/11/2025 13:30 EDT Telemedicine [facility] Hematology & Oncology - [address] [phone] Dana Padilla MD [address] [place] [address], [facility] [address] [place] [phone] documented as of this encounter Visit Diagnoses Not on filedocumented in this encounter Care Teams Superintendent Operating Relationship Specialty Start Date End Date None, Provider PCP - General 01/03/17 02/23/17 documented as of this encounter
--- OUTSIDE RECORDS SUMMARY | 2024-11-22 17:29 | XMS_ITS | Encounter Summary ---
Author Organization [facility] Address [address] [place] [address] Care Team Providers Care Leasing Director Name Role Phone Alli Lew MD Primary Care Provider [phone] None, Provider Primary Care [facility] Naty Evans MD Unavailable aJimie Evans MD Primary Care Provider [phone] Reason for Visit * Reason Onset Date Comments Other 02/24/2017 Encounter Details Date Type Department Care Team (Late st Contact Info) Description 02/24/2017 Telephone [facility] Primary [facility] - [address] [address] Alli Lew MD [address] [place] [address] [place] [phone] Other Social History Tobacco Use Types Packs/Day [...] Miscellaneous Notes * Telephone Encounter - Ebony ToscanoRicci - 02/25/2017 1029 EDT Spoke w/Deepti in . She says the pt has two different Dxs, one for QUIROZ & one for gallstones. Deepti says has not seen the pt, they did not see her when she was in the hospital. Because they have never seen the pt at all they cannot accept the referral from Dr. Qiu. If they had seen her in the hospital then they could accept the referral from Dr. Qiu but they did not see her in the hospital. Deepti also said the pt had three appts scheduled with them a couple of years ago & cancelled all three of them. After she is seen here they will need a new referral or referrals for the QUIROZ &/or gallstones. They would be two separate referrals as QUIROZ is handled by the liverspecialist & the gallstones are handled by another provider. The pt rescheduled her appt that was with Zeina today to Dr. Lew next week. * Telephone Encounter - Dana Rivero - 02/24/2017 1625 EDT Deepti from GI : Patient was seen in the [facility] ED on 02/21/17 and ED did a referral to GI for patient's liver Cirrhosis/QUIROZ. Deepti from GI needs a referral from primary in order for GI to see patient. GI cannot accept referrals from ED. Patient is seeing Zeina Curiel 02/25/17. GI will need a new order form Zeina Curiel if that is what Zeina wants after seeing patient. documented in this encounter Plan of Treatment Upcoming Encounters Date Type Department Care Team (Late st Contact Info) Description 01/04/2025 13:00 EST Office Visit [facility] Ophthalmology - [address] [phone] Gagandeep Rome MD [address] [place] [address] [address] [place] [phone] 02/11/2025 13:30 EDT Telemedicine [facility] Hematology & Oncology [address] [phone] Dana Padilla MD [address] [place] [address], [address] [place] [phone] documented as of this encounter Visit Diagnoses Not on filedocumented in this encounter Care Teams Leasing Director Relationship Specialty Start Date End Date Alli Lew MD [address] [place] [address] [address] [place], C[place] [phone] PCP - General 02/24/17 03/24/17 None, Provider PCP - General 03/25/17 09/08/17 Naty Evans MD [address] [place] [address] [place] [phone] PCP - Alternate 09/09/17 09/19/17 Jaimie Evans MD [address] [place] [address] PCP - General 09/20/17 09/29/17 documented as of this encounter
--- OUTSIDE RECORDS SUMMARY | 2024-11-22 17:29 | XMS_ITS | Encounter Summary ---
Author Organization [facility] Address [address] [place] [address] Care Team Providers Care Air Intelligence Specialist Name Role Phone None, Provider Primary Care Provider Unavailabl e Reason for Visit * Reason Comments Chest Pain onset CP since this morning I thought I had allegies and now the breathing has been getting really bad + productive cough (green redish tint), last night + fever, +N/V, patient had short episode of syncope (x10 sec) in mora leading to ED patietn placed in wheelchair and taken directly totriage Encounter Details Date Type Department Care Team (Late st Contact Info) Description 05/04/2017 13:27 EDT - 05/04/2017 18:30 EDT Emergency [facility] Emergency Department - [address] [address] Sal Hubbard MD [address] [facility], Level 1 [place] [address] Emergency, MD Rolando Bronchospasm (Primary Dx); Flank pain Discharge Disposition: Home or Self [...] Sign Reading Time Taken Comments Blood Pressure 98/55 05/04/2017 1750 EDT Pulse 75 05/04/2017 1750 EDT Temperature 35.6 ??C (96.1 ??F) 05/04/2017 1750 EDT Respiratory Rate 18 05/04/2017 1750 EDT Oxygen Saturation 100% 05/04/2017 1750 EDT Inhaled Oxygen Concentration - - Weight 89.4 kg (197 lb) 05/04/2017 1332 EDT Height 165.1 cm (5' 5) 05/04/2017 1332 EDT Body Mass Index 32.78 05/04/2017 1332 EDT documented in this encounter Functional Status [...] documented in this encounter Discharge Diagnoses Diagnosis J98.01 Acute bronchospasm-J98.01[ICD-10-CM] R10.9 Unspecified abdominal pain-R10.9[ICD-10-CM] Z88.6 Allergy status to analgesic agent status-Z88.6[ICD-10-CM] Z88.5 Allergy status to narcotic agent status-Z88.5[ICD-10-CM] Z88.2 Allergy status to sulfonamides status-Z88.2[ICD-10-CM] F17.200 Nicotine dependence, unspecified, uncomplicated-F17.200[ICD-10-CM] documented in this encounter Discharge Instructions * Discharge Instructions* Sal Hubbard MD - 05/04/2017 18:14 EDT Use inhaler as instructed. The CT scan did not show any evidence of kidney stones. Return if symptoms worsen or new symptoms develop. * Attachments The following attachments cannot be sent through Care Everywhere. * RAD (REACTIVE AIRWAY DISEASE) (BULGARIAN) documented in this encounter Medications at Time [...] documented in this encounter Progress Notes * Sana Levy, RT - 05/04/2017 1523 EDT Images from the original note were not included. Respiratory Consult/Progress Note Indications for Respiratory therapy: Bronchospasm Data Vitals: Heart Rate: 74 BPM, Resp: 17, SpO2: 96 % FIO2/O2 Device: , , O2 Device: None, RT Orders: Duoneb x1 now Protocol Scoring: Bronchodilator/Inhalation Therapy Frequency Bronchodialator - Clinical Indications: LIP order Breath Sounds: Faint wheezing, decreased throughout Response: No change / no treatment Pulse: <100 Resp Rate: <18 SOB: With exertion Total Score: 3 Airway Clearance Therapy Frequency Airway Clearance - Clinical Indications: No clinical indications Breath Sounds: Clear / diminished Sputum: Small (tsp) / None Consistency: None Cough Effort: Strong, non-productive Color: None Total Score: 0 Hyperinflation Therapy Frequency Hyperinflation - Clinical Indications: No clinical indications Breath Sounds: Other Surgery: No X-Ray / Atelectasis: No O2 Requirements: O2 at baseline Mobility Status: Mobile / at baseline Total: 1 Action/Events Respiratory events; Patient took neb well. Stated that she didn't feel that it helped at all. Response/Results Weaning and Toleration of treatments; Plan: Continue to monitor WOB and wheezes. SANA LEVY, RT 05/04/17 documented in this encounter ED Notes * Myriam Fountain RN - 05/04/2017 1829 EDT Ordered for discharge. Aftercare instructions, follow up, s/s to return, prescription reviewed withpt. IV removed, VSS, ambulatory upon discharge. * Kandy Castillo - 05/04/2017 8879 EDT Blood drawn via saline lock per protocol, tiger, blue, green and purple tube(s) sent to lab per order. * Merary Campos RN - 05/04/2017 1608 EDT Pt resting on stretcher in NAD. She is asking for IVF, administered Zofran ODT and brought pt waterper Dr. Hubbard. Pt has not vomited in her time here, lips appear dry, encouraged her to try and drink fluids. Will continue to monitor. * Merary Campos RN - 05/04/2017 1442 EDT Pt states she needs to use the restroom, assisted her to bedside commode. She states she is unable to go and walked her to the restroom. She continues to report some dizziness, skin pink, warm and dry. Placed pt back on cardiac monitoring, will reassess. * Sal Hubbard MD - 05/04/2017 1408 EDT DOS: 05/04/2017 Chief Complaint Patient presents with ??? Chest Pain onset CP since this morning I thought I had allegies and now the breathing has been getting reallybad + productive cough (green redish tint), last night + fever, +N/V, patient had short episode ofsyncope (x10 sec) in mora leading to ED patietn placed in wheelchair and taken directly totriage HPI HPI Comments: I, Smiley Zelayagelo, am scribing for Sal Hubbard MD while he is personally performing the service. Smiley López 05/04/2017 14:08 Tara Boothe is a 56 y.o. female with a history of mild persistent asthma, pancytopenia, kidney stones, and drug-seeking behavior presents with a chief complaint of cough, wheezing, increasing shortness of breath, nausea, vomiting and flank pain.. She reports that the SOB is somewhat improved onevaluation. Patient notes chest discomfort with the cough. Patient explains that she initially thought she had a cold because she has a cough with green sputum, rhinorrhea, and congestion. Patient also believes that she had a fever. Patient denies chills or diaphoresis. Patient also describes left flank pain. Patient denies dysuria or urinary frequency. Patient states that occasionally she sees blood in her urine. Patient denies headache, earache or sore throat. Patient notes cough and chest congestion with slight chest discomfort with the cough. Patient denies abdominal pain, diarrhea, blackor bloody stools. Patient denies skin rash. Patient now presents for further evaluation and treatment. Social History- Patient endorses tobacco use. The history is provided by the patient and medical records. Chest Pain Pain location: Substernal area Pain quality: sharp Pain radiates to: Does not radiate Onset quality: Sudden Progression: Unchanged Chronicity: New Context comment: Chest pain occurs with the cough Worsened by: Coughing Associated symptoms: cough, fatigue, fever, nausea, shortness of breath, vomiting and weakness Associated symptoms: no abdominal pain, no anorexia, no back pain, no diaphoresis, no dizziness, nodysphagia, no headache, no lower extremity edema, no numbness and no palpitations Risk factors: smoking Risk factors: no coronary artery disease, no diabetes mellitus, no high cholesterol, no hypertension and no prior DVT/PE Review of Systems Review of Systems Constitutional: Positive for fatigue and fever. Negative for chills and diaphoresis. HENT: Positive for congestion and rhinorrhea. Negative for sneezing and trouble swallowing. Eyes: Negative for visual disturbance. Respiratory: Positive for cough and shortness of breath. Negative for chest tightness. Cardiovascular: Positive for chest pain. Negative for palpitations and leg swelling. Gastrointestinal: Positive for nausea and vomiting. Negative for abdominal pain and anorexia. Endocrine: Negative for polydipsia. Genitourinary: Positive for hematuria. Negative for dysuria. Musculoskeletal: Negative for arthralgias, back pain and gait problem. Skin: Negative for rash and wound. Allergic/Immunologic: Negative for immunocompromised state. Neurological: Positive for syncope and weakness. Negative for dizziness, numbness and headaches. Hematological: Does not bruise/bleed easily. Psychiatric/Behavioral: Negative for confusion. The patient is not nervous/anxious. All other systems reviewed and are negative. The patient's past medical, family and social history was reviewed and updated as needed. Physical Exam Constitutional: She is oriented to person, place, and time. She appears well- developed and well-nourished. No distress. HENT: Head: Normocephalic and atraumatic. Right Ear: External ear normal. Left Ear: External ear normal. Nose: Nose normal. Mouth/Throat: Oropharynx is clear and moist. Eyes: Conjunctivae and EOM are normal. Pupils are equal, round, and reactive to light. Neck: Normal range of motion. Neck supple. Cardiovascular: Normal rate, regular rhythm and normal heart sounds. Pulmonary/Chest: Effort normal. She has wheezes. She has no rales. Coarse breath sounds Abdominal: Soft. Bowel sounds are normal. She exhibits no distension. There is no tenderness. Musculoskeletal: Normal range of motion. She exhibits no edema or tenderness. No CVA tenderness Neurological: She is alert and oriented to person, place, and time. No cranial nerve deficit. Skin: Skin is warm and dry. She is not diaphoretic. Psychiatric: She has a normal mood and affect. Nursing note and vitals reviewed. RESULTS Procedures ED COURSE A medical screening exam was performed. Patient is a 56 year old female who presents a chief complaint of shortness of breath, wheezing, sharp chest pain secondary to the cough and left flank pain. Physical exam as above, patient wheezing throughout all lung godwin. Patient treated with a DuoNeb. Patient hydrated with intravenous normal saline. Nausea treated intravenous Zofran. EKG 1344 which was independently reviewed and interpreted by me. NSR, HR 80 bpm, no ST-T wave abnormalities. Labs- 3+ blood, 2+ protein, 1+ leuk esterase. Patient had labs that were reviewed independently by myself. Reevaluation patient continues to wheeze. Patient treated with a second DuoNeb. Chest [id number] reviewed by myself, no acute cardiopulmonary process. Laboratory tests troponin negative at 0.034, WBC 1.55, hematocrit 36, creatinine 0.5. Patient's past medical record reviewed. Patient has a history of pancytopenia. 16:51 Patient reevaluation. She reports improvement in lungs but notes persistent left flank pain and nausea. No CVA tenderness. Patient with a soft nontender abdomen. Patient administered an additional 4 mg IV Zofran for nausea. Patient treated with intravenous Toradol. renal colic CT that was reviewed independently by myself and the radiologist, consistent with no urinary tract calculi. Patient with a history of asthma appears to have a mild asthma exacerbation. After the second DuoNeb the patient had complete resolution of her symptoms. Patient with flank pain and hematuria. Renal colic CT did not demonstrate any evidence of kidney stones. Patient without evidence of a urinary tract infection. Patient's pain was improved with Toradol. Patient was discharged home. Patient was encouraged to stop smoking. Patient will follow-up with a primary care physician. Patient discharged home in improved condition. ASSESSMENT AND PLAN Final diagnoses: Bronchospasm Flank pain DISPOSITION: Discharged The patient's pain was managed to an adequate level weighing risk vs. benefit of further medications. Upon departure from the Emergency Department, the patient's pain was 2 on a zero to ten scale. Condition at departure from the Emergency Department: Improved PCP: Provider None MDM Number of Diagnoses or Management Options Bronchospasm: new, needed workup Flank pain: new, needed workup Amount and/or Complexity of Data Reviewed Clinical lab tests: ordered and reviewed Tests in the radiology section of CPT??: ordered and reviewed Tests in the medicine section of CPT??: ordered and reviewed Review and summarize past medical records: yes Independent visualization of images, tracings, or specimens: yes (EKG, laboratory tests, chest x-ray, renal colic CT scan) Risk of Complications, Morbidity, and/or Mortality Presenting problems: high Diagnostic procedures: high Management options: high General comments: 5 Patient Progress Patient progress: improved 05/05/2017 8:21 No flowsheet data found. This documentation is recorded by Smiley López acting as Scribe under the direction and presence of Sal Hubbard MD. Sal Hubbard MD: I personally performed the services recorded by the scribe in my presence. I confirm the scribe's documentation has been reviewed by me to accurately and completely record my work,treatment, procedures, and medical decision making. * Merary Campos RN - 05/04/2017 1346 EDT 12 Lead EKG Performed by Merary Campos RN and shown to Sal Hubbard MD. documented in this encounter Plan of Treatment Upcoming Encounters Date Type Department Care Team (Late st Contact Info) Description 01/04/2025 13:00 EST Office Visit [facility] [place] [address] Gagandeep Rome MD [address] [place] [address], [address] [place] [address] 02/11/2025 13:30 EDT Telemedicine [facility] Hematology & Oncology - [facility] [address], [place] [id number] Dana Padilla MD 111 [facility], [facility], [address] [place] [address] documented as of this encounter Procedures Procedure Name Priority Date/Time Associated Diagnosis Comments ECG REPORT - SCANNED 05/09/2017 10:[address] RENAL COLIC WO CONTRAST STAT 05/04/2017 17:45 EDT PROFILE ED CARDIAC PACK STAT 05/04/2017 17:15 EDT REDRAW LABS Routine 05/04/2017 16:55 EDT ED/URGENT CARE ADD-ON STAT 05/04/2017 16:55 EDT CHEST PA AND LATERAL STAT 05/04/2017 15:56 EDT POCT URINE DIPSTICK, CLINITEK Routine 05/04/2017 14:34 EDT EKG 12-LEAD STAT 05/04/2017 13:44 EDT documented in this encounter Results * ECG REPORT - SCANNED (05/09/2017 10:49 EDT) 05/09/2017 10:4 9 EDT us Scan 2 [employer] PROCEDURE/MINOR SURGICAL OR DERABLES Final Result * CT RENAL COLIC WO CONTRAST (05/04/2017 17:45 EDT) Anatomical Region Laterality Modality Other 05/04/2017 17:4 5 EDT 05/05/2017 10:00 EDT Narrative 05/05/2017 10:[address] RENAL COLIC ??05/04/2017 5:45 PM Signs and Symptoms/Comments: ?? Left flank pain and hematuria Technique: Axial CT images obtained from abdomen immediately superior to level of kidneys through the pelvis without administration of contrast of any kind. Sagittal and coronal reformats generated. Comparison: CT urogram 03/25/2017 Findings: Kidneys and ureters: Unenhanced kidneys without significant finding. No renal calculi. No hydronephrosis. Ureters nondistended. Bladder within normal limits.. Bladder: No significant CT finding Uterus, adnexa: Uterus absent. No adnexal masses. Included lung bases: No significant finding. Unenhanced liver and spleen, as far as included: Stable moderate splenomegaly, 18 cm craniocaudad. Tiny hypodensity inferiorly, axial 121, stable. Cirrhotic liver unchanged. Gallbladder, pancreas adrenal glands: Gallbladder absent. No biliary ductal dilatation. Unenhanced pancreas without significant finding. No adrenal masses. Bowel: No bowel obstruction. Scattered sigmoid diverticula noted. Peritoneal cavity: No free fluid or fluid collection. Abdominal wall: Stable mesh anterior abdominal wall to right of midline. No hernia. Lymphovascular: Aorta shows mild atherosclerotic changes. No adenopathy. The splenic vein is markedly distended and tortuous. The filling defect seen on prior not evident on this unenhanced CT. Musculoskeletal: Degenerative disc disease especially mid lumbar spine. No compression deformities. IMPRESSION: 1. No urinary tract calculi or obstruction. 2. Cirrhosis with portal hypertension. 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 3. Prior hernia repair, hysterectomy, cholecystectomy changes. I have personally reviewed the images and the above interpretation and agree with the findings. Procedure Note Scottie Xavier MD - 05/05/2017 CT RENAL COLIC 05/04/2017 5:45 PM Signs and Symptoms/Comments: Left flank pain and hematuria Technique: Axial CT images obtained from abdomen immediately superior to level of kidneys through the pelvis without administration of contrast of any kind. Sagittal and coronal reformats generated. Comparison: CT urogram 03/25/2017 Findings: Kidneys and ureters: Unenhanced kidneys without significant finding. No renal calculi. No hydronephrosis. Ureters nondistended. Bladder within normal limits.. Bladder: No significant CT finding Uterus, adnexa: Uterus absent. No adnexal masses. Included lung bases: No significant finding. Unenhanced liver and spleen, as far as included: Stable moderate splenomegaly, 18 cm craniocaudad. Tiny hypodensity inferiorly, axial 121, stable. Cirrhotic liver unchanged. Gallbladder, pancreas adrenal glands: Gallbladder absent. No biliary ductal dilatation. Unenhanced pancreas without significant finding. No adrenal masses. Bowel: No bowel obstruction. Scattered sigmoid diverticula noted. Peritoneal cavity: No free fluid or fluid collection. Abdominal wall: Stable mesh anterior abdominal wall to right of midline. No hernia. Lymphovascular: Aorta shows mild atherosclerotic changes. No adenopathy. The splenic vein is markedly distended and tortuous. The filling defect seen on prior not evident on this unenhanced CT. Musculoskeletal: Degenerative disc disease especially mid lumbar spine. No compression deformities. IMPRESSION: 1. No urinary tract calculi or obstruction. 2. Cirrhosis with portal hypertension. 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 3. Prior hernia repair, hysterectomy, cholecystectomy changes. I have personally reviewed the images and the above interpretation and agree with the findings. us Sal Hubbard MD IM CT ORDERABLES Final Resul t * (ABNORMAL) PROFILE ED CARDIAC PACK (05/04/2017 17:15 EDT) Sodium 144 136 - 145 mEq/L 05/04/2017 18:02 [facility] Potassium 4.0 3.5 - 5.0 mEq/L 05/04/2017 18:02 [facility] Chloride 105 96 - 110 mEq/L 05/04/2017 18:02 [facility] CO2 27 22 - 32 mEq/L 05/04/2017 18:02 [facility] BUN 9(L) 10 - 26 mg/dl 05/04/2017 18:02 [facility] Creatinine 0.77 0.52 - 1.04 mg/dl 05/04/2017 18:02 [facility] GFR, Calculated 87 >60 ml/min/1 .73m2 05/04/2017 18:02 [facility] Comment: eGFR calculated using CKD-EPI equation for non Americans. Multiply eGFR by 1.16 for Americans. Magnesium 1.9 1.7 - 2.8 mg/dl 05/04/2017 18:02 [facility] WBC 1.55(L) 4.0 - 12.4 K/cmm 05/04/2017 17:49 [facility] RBC 4.28 3.86 - 5.04 M/cmm 05/04/2017 17:49 [facility] Hemoglobin 12.2 11.6 - 15.2 gm/dl 05/04/2017 17:49 [facility] HCT 36.3 34.9 - 44.4 % 05/04/2017 17:49 [facility] MCV 85 81 - 98 fl 05/04/2017 17:49 [facility] MCH 28.5 26.7 - 33.3 pg 05/04/2017 17:49 [facility] MCHC 33.6 32.1 - 35.9 gm/dl 05/04/2017 17:49 [facility] RDW-CV 14.5 <14.7 % 05/04/2017 17:49 [facility] RDW-SD 44.2 <50.4 fl 05/04/2017 17:49 [facility] PLT 46(L) 141 - 377 K/cmm 05/04/2017 17:49 [facility] MPV 10.6 9.5 - 12.7 fl 05/04/2017 17:49 [facility] Neutrophils 78.0 % 05/04/2017 18:15 [facility] Lymphocytes 17.0 % 05/04/2017 18:15 [facility] Monocytes 5.0 % 05/04/2017 18:15 [facility] ABS Neutrophils 1.21(L) 2.20 - 8.85 K/cmm 05/04/2017 18:15 [facility] ABS Lymphs 0.26(L) 1.09 - 3.30 K/cmm 05/04/2017 18:15 EDT [facility] ABS Monocytes 0.08(L) 0.1 - 0.8 K/cmm 05/04/2017 18:15 EDT [facility] Toxic Granulation Present 05/04/2017 18:15 T [facility] Type of Diff: Manual 05/04/2017 18:15 EDT [facility] Troponin I (ng/mL) <0.034 <0.034 ng/ml 05/04/2017 18:12 [facility] Glucose, Screening 85 70 - 100 mg/dl 05/04/2017 18:02 T [facility] Hold Blue Top Sample for coagulation will be discarded after 4 hours 05/04/2017 17:57 EDT [facility] Blood specimen (specimen) BLOOD SPECIMEN / Unknown 05/04/2017 17:15 EDT 05/04/2017 17:40 EDT us Sal Hubbard MD PACKAGES & DNA PROBE ORDERABL ES Final Result [facility] [address] [place] [address] * REDRAW LABS (05/04/2017 16:55 EDT) Redraw NO SAMPLES IN LAB 05/04/2017 16:56 EDT [facility] TOPOGRAPHY UNKNOWN / Unknown 05/04/2017 16:55 EDT 05/04/2017 16:56 EDT us Sal Hubbard MD LAB INFO SERVICE AND SUPPORT & PHONE RESULT Final Result Performing Organization Address City/[facility]/ZIP Co de Phone Number [facility] [address] [place] [address] * ED/URGENT CARE ADD-ON (05/04/2017 16:55 EDT) Tests to be added BUN AND CREATININE 05/04/2017 16:52 EDT [facility] Number for problems [id number] (ED) 05/04/2017 16:52 EDT [facility] TOPOGRAPHY UNKNOWN / Unknown 05/04/2017 16:55 EDT 05/04/2017 16:56 EDT us Sal Hubbard MD HEMATOLOGY & PF4 ORDERABLES F inal Result [facility] [address] [place] [address] * CHEST PA AND LATERAL (05/04/2017 15:56 EDT) Anatomical Region Laterality Modality Other 05/04/2017 15:5 6 EDT 05/04/2017 16:22 EDT Narrative 05/04/2017 16:22 EDT CHEST PA AND LATERAL ??05/04/2017 3:56 PM Clinical History/Comments: Off and shortness of breath Comparison: 05/16/2013, 07/17/2015, 04/09/2017, CT chest 07/17/2015. Technique: Frontal and lateral views of the chest were performed. Findings: Soft tissues: ??Normal. Bones: Within normal limits. Cardiac and mediastinal contours: Within normal limits. Lungs: The lungs are clear. ?? Pleura/diaphragms:Normal. Impression: 1. ??No acute cardiopulmonary abnormality. I have personally reviewed the images and the above interpretation and agree with the findings. Procedure Note Colt Burciaga MD - 05/04/2017 CHEST PA AND LATERAL 05/04/2017 3:56 PM Clinical History/Comments: Off and shortness of breath Comparison: 05/16/2013, 07/17/2015, 04/09/2017, CT chest 07/17/2015. Technique: Frontal and lateral views of the chest were performed. Findings: Soft tissues: Normal. Bones: Within normal limits. Cardiac and mediastinal contours: Within normal limits. Lungs: The lungs are clear. Pleura/diaphragms:Normal. Impression: 1. No acute cardiopulmonary abnormality. I have personally reviewed the images and the above interpretation and agree with the findings. us Sal Hubbard MD IMG DIAGNOSTIC IMAGING ORDERA BLES Final Result * (ABNORMAL) POCT URINE DIPSTICK (05/04/2017 14:34 EDT) Pathologist [facility] Color Red 05/04/2017 14:43 EDT [facility] Clarity, UA CLOUDY 05/04/2017 14:43 EDT [facility] Glucose Neg Neg 05/04/2017 14:43 EDT [facility] Bilirubin Neg Neg 05/04/2017 14:43 EDT [facility] Ketones Neg Neg 05/04/2017 14:43 EDT [facility] Specific [place] 1.015 1.001 - 1.035 05/04/2017 14:43 EDT [facility] Blood 3+(A) Neg 05/04/2017 14:43 EDT [facility] pH 7.5 4.6 - 8.0 05/04/2017 14:43 EDT [facility] Protein 2+(A) Neg 05/04/2017 14:43 EDT [facility] Urobilinogen 1.0 0.2 - 1.0 E.U./dl 05/04/2017 14:43 EDT [facility] Nitrite Neg Neg 05/04/2017 14:43 EDT [facility] Leuk Esterase 1+(A) Neg 05/04/2017 14:43 EDT [facility] core rescuer ID [id number] 05/04/2017 14:43 EDT [facility] Comment:Test performed at [facility] Urine specimen (specimen) URINE / Unknown 05/04/2017 14:34 EDT 05/04/2017 14:43 EDT us Sal Hubbard MD POINT OF CARE TEST ORDERABLES Final Result [facility] [address] [place] [address] * EKG 12-LEAD (05/04/2017 13:44 EDT) 05/04/2017 13:4 4 EDT Narrative [facility] - 05/05/2017 16:12 EDT ?[facility] Emergency ? Test Date: ?2017-05-04 Pat Name: ? PHYLISS BOOTHE ?Department: ?? ED ? Room: ? Gender: ? F ?Ct Scan Technician: ?? [id number] : ?1960 ? Requested By: JOSE Ramos Order Number: [id number] ? Reading MD: ?? FOREIGN ADES MD ? Measurements Intervals ?[place] ? Rate: ? 84 ? P: ?64 MA: ? 142 ?QRS: ?68 QRSD: ? 92 ? T: ?43 QT: ? 365 ? QTc: ?432 ? Interpretive Statements SINUS RHYTHM Within Normal Limits Compared to ECG 02/21/2017 17:47:42 No significant changes I reviewed the tracing and have either agreed or edited the findings in this report. Electronically Signed On 05-05-17 16:12:57 EDT by FOREIGN HINKLE MD. Procedure Note Foreign Hinkle MD - 05/05/2017 [facility] Emergency Test Date: 2017-05-04 Pat Name: TARA BOOTHE Department: ED Room: Gender: F Ct Scan Technician: [id number] : 1960 Requested By: JOSE Ramos Order Number: [id number] Reading MD: FOREIGN HINKLE MD Measurements Intervals [place] Rate: 84 P: 64 MA: 142 QRS: 68 QRSD: 92 T: 43 QT: 365 QTc: 432 Interpretive Statements SINUS RHYTHM Within Normal Limits Compared to ECG 02/21/2017 17:47:42 No significant changes I reviewed the tracing and have either agreed or edited the findings inthis report. Electronically Signed On 05-05-17 16:12:57 EDT by FOREIGN BLUM. Scottie Camarena MD CARDIAC ECG ORDERABLES Pricila mccord Result [facility] documented in this encounter Visit Diagnoses Diagnosis Bronchospasm- Primary Acute bronchospasm Flank pain Abdominal pain, unspecified site documented in this encounter Administered Medications Inactive Administered Medications - up to 3 most recent administrations Medication Order MAR Action Action Date Dose Rate Site albuterol (VENTOLIN HFA) inhaler STARTER PACK 1 Package, inhalation, Once (Without Time Specified), 1 dose, Starting on Tue05/04/17 at 1812, Until Tue05/04/17 at 1829, STAT Given 05/04/2017 18:29 EDT 1 Package ipratropium-albuterol (DUONEB) 0.5 mg-3 mg(2.5 mg base)/3 mL nebulizer solution 3 mL 3 mL, nebulization, NOW X1, 1 dose, On Tue05/04/17 at 1430, STAT Given 05/04/2017 15:10 EDT 3 mL ipratropium-albuterol (DUONEB) 0.5 mg-3 mg(2.5 mg base)/3 mL nebulizer solution 3 mL 3 mL, nebulization, NOW X1, 1 dose, On Tue05/04/17 at 1545, STAT Given 05/04/2017 15:58 EDT 3 mL ondansetron (PF) (ZOFRAN) injection 4 mg 4 mg, intravenous, NOW X1, 1 dose, On Tue05/04/17 at 1730, STAT Given 05/04/2017 17:43 EDT 4 mg ondansetron (ZOFRAN-ODT) disintegrating tablet 4 mg 4 mg, oral, NOW X1, 1 dose, On Tue05/04/17 at 1545, STAT Given 05/04/2017 15:47 EDT 4 mg sodium chloride 0.9 % BOLUS 1,000 mL 1,000 mL, intravenous, NOW X1, 1 dose, On Tue05/04/17 at 1700, STAT New Bag 05/04/2017 17:43 EDT 1,000 mL traMADol (ULTRAM) tablet 50 mg 50 mg, oral, NOW X1, 1 dose, On Tue05/04/17 at 1815, STAT Given 05/04/2017 18:28 EDT 50 mg documented in this encounter Discontinued Medications Medication Sig Discontinue Reason Start Date End Da te ondansetron (ZOFRAN-ODT) 4 mg disintegrating tablet Take 1 Tab by mouth every 8 hours as needed for Nausea. 02/01/2017 05/04/2017 promethazine (PHENERGAN) [address] 1 Suppository rectally every 6 hours as needed for Nausea. 03/25/2017 05/04/2017 documented as of this encounter Active and Recently Administered Medications Times are shown in EDT. Scheduled Medication Order 05/02/2017 05/03/2017 05/04/2017 albuterol (VENTOLIN HFA) inhaler STARTER PACK (COMPLETED) 1 Package, inhalation, Once (Without Time Specified), 1 dose, Starting on Tue05/04/17 at 1812, Until Tue05/04/17 at 1829, STAT 1829 (Given - Provid er: Myriam Fountain RN) ipratropium-albuterol (DUONEB) 0.5 mg-3 mg(2.5 mg base)/3 mL nebulizer solution 3 mL (COMPLETED) 3 mL, nebulization, NOW X1, 1 dose, On Tue05/04/17 at 1430, STAT 1510 (Given - Provid er: Sana Levy, RT) ipratropium-albuterol (DUONEB) 0.5 mg-3 mg(2.5 mg base)/3 mL nebulizer solution 3 mL (COMPLETED) 3 mL, nebulization, NOW X1, 1 dose, On Tue05/04/17 at 1545, STAT 1558 (Given - Provid er: Sana Levy, RT) ondansetron (PF) (ZOFRAN) injection 4 mg (COMPLETED) 4 mg, intravenous, NOW X1, 1 dose, On Tue05/04/17 at 1730, STAT 1743 (Given - Provid er: Myriam Fountain RN) ondansetron (ZOFRAN-ODT) disintegrating tablet 4 mg (COMPLETED) 4 mg, oral, NOW X1, 1 dose, On Tue05/04/17 at 1545, STAT 1547 (Given - Provid er: Merary Campos RN) sodium chloride 0.9 % BOLUS 1,000 mL (COMPLETED) 1,000 mL, intravenous, NOW X1, 1 dose, On Tue05/04/17 at 1700, STAT 1743 (New Bag - Prov ider: Myriam Fountain RN)1829 (Completed - Provider: Myriam Fountain RN) traMADol (ULTRAM) tablet 50 mg (COMPLETED) 50 mg, oral, NOW X1, 1 dose, On Tue05/04/17 at 1815, STAT 1828 (Given - Provid er: Myriam Fountain RN) documented in this encounter Orders Nursing Count Last Ordered Date First Orde red Date INSERT PERIPHERAL IV 1 05/04/2017 documented in this encounter Care Teams Air Intelligence Specialist Relationship Specialty Start Date End Date None, Provider PCP - General 03/25/17 09/08/17 documented as of this encounter
--- OUTSIDE RECORDS SUMMARY | 2024-11-22 17:30 | XMS_ITS | Encounter Summary ---
Author Organization [facility] Address [address] [place] [address] Care Team Providers Care Wire Web Worker Name Role Phone Jayden Tijerina MD Primary Care Provider [phone] Reason for Visit * Reason Onset Date Comments Appointment Related 08/07/2015.24 Appointment Related 08/11/2015 08.14.2015 Encounter Details Date Type Department Care Team (Late st Contact Info) Description 08/07/2015 Telephone [facility] Urology - [facility] [address] [place], [place] [phone] Jordan Dickens MD [address] [facility], [address] [place] [address] Appointment Related (08.14); Appointment Related (08.14.2015) Social History Tobacco Use Types Packs/Day Years [...] hearing? Answer Date of Assessment Author No 07/18/2015 1:22 [facility] seble Hewitt RN * Are you blind or do you have serious difficulty seeing, even when wearing glasses? Answer Date of Assessment Author No 07/18/2015 1:22 [facility] seble Hewitt RN * Do you have serious difficulty walking or climbing stairs? (5 years old or older) Answer Date of Assessment Author No 07/18/2015 0:57 [facility] seble Hewitt RN * Do you have difficulty dressing or bathing? (5 years old or older) Answer Date of Assessment Author No 07/18/2015 0:57 [facility] seble Hewitt RN * Because of a physical, mental, or emotional condition, do you have difficulty doing errands alone such as visiting a doctor's office or shopping? (15 years old or older) Answer Date of Assessment Author No 07/18/2015 0:57 [facility] seble Hewitt RN documented as of this encounter Mental Status * Because of a physical, mental, or emotional condition, do you have serious difficulty concentrating, remembering, or making decisions? (5 years old or older) Answer Entry Date Author No 07/18/2015 0:57 [facility] seble Hewitt RN documented in this encounter Miscellaneous Notes * Telephone Encounter - Susan Hilliard - 08/11/2015 1340 EDT Reason for Call: Appointment Related Summary/Symptoms: Per pt, can not keep the 9.24 appt due to that she is having surgery .. Per pt, joes, she did not receive your message from 08.11.2015. Pt requesting a call back to reschedule today when you have a moment. Susan Hilliard 08/11/2015 13:40 * Telephone Encounter - Glenny Luciano - 08/11/2015 0950 EDT Returned phone call to PT left message that there is no room in the schedule next week for her procedure. Can she possibly keep 08/11 appt? * Telephone Encounter - Maritza Michael - 08/07/2015 1640 EDT Reason for Call: Appointment Related Summary/Symptoms: Pt calling to reschedule her 9.24 appt. Please call Maritza Michael 08/07/2015 16:40 documented in this encounter Plan of Treatment Upcoming Encounters Date Type Department Care Team (Late st Contact Info) Description 01/04/2025 13:00 EST Office Visit [facility] Ophthalmology - [address] [phone] Gagandeep Rome MD [address] [place] [address], [facility] [address] [place] [phone] 02/11/2025 13:30 EDT Telemedicine [facility] Hematology & Oncology - [address] [id number] Dana Padilla MD [address] [place] [address], [facility] [address] [place] [address] documented as of this encounter Visit Diagnoses Not on filedocumented in this encounter Care Teams Wire Web Worker Relationship Specialty Start Date End Date Jayden Tijerina MD PCP - General 07/31/15 01/02/17 documented as of this encounter
--- OUTSIDE RECORDS SUMMARY | 2024-11-22 17:30 | XMS_ITS | Encounter Summary ---
Author Organization [facility] Address [address] [place] [address] Care Team Providers Care Dining Room Host Name Role Phone Sherif Bardales MD Primary Care Provider [phone] Encounter Details Date Type Department Care Team (Late st Contact Info) Description 08/13/2015 5:59 EDT - 08/14/2015 12:03 EDT Hospital Encounter [facility] Neurosurgery [address] [place] [address] Serene Vaughan MD [address] [facility], [address] [place] [address] Neck mass (Primary Dx) Discharge Disposition: Home or Self [...] Sign Reading Time Taken Comments Blood Pressure 106/62 08/14/2015 0541 EDT Pulse - - Temperature 35.6 ??C (96.1 ??F) 08/14/2015 0541 EDT Respiratory Rate 16 08/14/2015 0541 EDT Oxygen Saturation 95% 08/14/2015 0541 EDT Inhaled Oxygen Concentration - - Weight 92.3 kg (203 lb 6.2 oz) 08/13/2015 1200 E DT Height 165.1 cm (5' 5) 08/13/2015 1200 EDT Body Mass Index 33.85 08/13/2015 1200 EDT documented in this encounter Functional Status [...] older) Answer Date of Assessment Author Yes 08/13/2015 12:00 EDT Rivera Argueta RN documented as of this encounter Mental Status * Because of a physical, mental, or emotional condition, do you have serious difficulty concentrating, remembering, or making decisions? (5 years old or older) Answer Entry Date Author No 08/13/2015 12:00 EDT Rivera Argueta RN documented in this encounter Discharge Summaries * Devang Nelson MD - 08/13/2015 0924 EDT Discharge Summary Chief Complaint/Reason for Admission: left level II neck mass Principal/Final Diagnosis: same Principal Procedure: Excision left level II neck mass Secondary Procedures: none Condition at Discharge: Good Assessment at Discharge: Vital signs: Patient Vitals for the past 12 hrs: BP Heart Rate Resp Temp SpO2 O2 Device 08/14/15 0541 106/62 mmHg 72 BPM 16 35.6 ??C (96.1 ??F) 95 % Room air Hospital Course: aTra Boothe was admitted for observation following the above procedure. She received one unit of platelets in the OR for her known thrombocytopenia. A surgical drain was placed. Her platelet level was monitored and responded appropriately to platelets. Her pain was controlled, she resumed a regular diet and her drain output was deemed low enough to remove the drain on POD 1. On POD#1 she was discharged on the medications listed below and instructed to follow up with Dr. Vaughan as an outpatient. Relevant Studies at Discharge: none Last Lab Results at Discharge: CBC: Lab Results Component Value Date WBC 1.65* 08/13/2015 RBC 4.14 08/13/2015 HGB 11.7 08/13/2015 HCT 36.0 08/13/2015 MCV 87 08/13/2015 MCH 28.2 08/13/2015 MCHC 32.5 08/13/2015 PLT 61* 08/13/2015 DIFFTYPE Manual 08/13/2015 SEDRATE 19 06/17/2015 Discharge Medications: CHANGE how you take these medications Sig oxyCODONE 5 mg immediate release tablet Commonly known as: ROXICODONE What changed: - how much to take - when to take this - reasons to take this 5 mg, oral, EVERY 4 HOURS CONTINUE taking these medications Sig albuterol 90 mcg/actuation inhaler 2 Puffs, inhalation, EVERY 4 HOURS ferrous gluconate 324 mg (38 mg iron) tablet Commonly known as: FERGON 324 mg, oral, 2 TIMES DAILY WITH BREAKFAST & DINNER fluticasone 110 mcg/actuation inhaler Commonly known as: FLOVENT 110 mcg, inhalation, 2 TIMES DAILY LEVOTHYROXINE ORAL 0.25 mg, oral, DAILY, Unknown dose ondansetron 4 mg tablet Commonly known as: ZOFRAN ( HYDROCHLORIDE) 8 mg, oral, EVERY 8 HOURS PRN oxybutynin 5 mg tablet Commonly known as: DITROPAN 5 mg, oral, 2 TIMES DAILY PRN pantoprazole 40 mg tablet Commonly known as: PROTONIX 40 mg, oral, DAILY tamsulosin 0.4 mg capsule Commonly known as: FLOMAX 0.4 mg, oral, DAILY XANAX 1 mg tablet Generic drug: ALPRAZolam 1 mg, oral, 3 TIMES DAILY XIFAXAN 550 mg tablet Generic drug: rifAXImin 550 mg, oral, 2 TIMES DAILY Discharge Summary Completed: 08/14/2015 Cosigned by Serene Vaughan MD at 08/26/2015 16:00 EDT documented in this encounter Medications at Time [...] by mouth daily. Unknown dose 11/03/2020 ondansetron (ZOFRAN, HYDROCHLORIDE,) 4 mg tablet Take 2 Tabs by mouth every 8 hours as needed for Nausea 15 Tab 0 06/17/2015 12/17/2015 oxybutynin (DITROPAN) 5 mg tablet Take 1 Tab by mouth 2 times daily as needed for Pain 8 Tab 0 07/15/2015 05/04/2016 oxyCODONE (ROXICODONE) 5 mg immediate release tablet Take 1 Tab by mouth every 4 hours Daily Max: 30 mg 30 Tab 0 08/14/2015 08/18/2015 pantoprazole (PROTONIX) 40 mg tablet Take 40 mg by mouth daily. 01/03/2019 rifAXImin (XIFAXAN) 550 mg tablet Take 550 mg by mouth 2 times daily 01/03/2019 tamsulosin (FLOMAX) 0.4 mg capsule Take 1 Cap by mouth daily 15 Cap 1 07/13/2015 05/04/2016 documented as of this encounter Ordered Prescriptions Prescription Sig Dispense Quantity Refills Last Filled Start Date End Date oxyCODONE (ROXICODONE) 5 mg immediate release tablet Take 1 Tab by mouth every 4 hours Daily Max: 30 mg 30 Tab 0 08/14/2015 08/18/2015 HYDROmorphone (DILAUDID) 2 mg tablet Take 1-2 Tabs by mouth every 4 hours as needed for Pain Daily Max: 24 mg 30 Tab 0 08/14/2015 08/14/2015 documented in this encounter Discharge Disposition Disposition Code Departure Means Destination Home or Self Care documented in this encounter Progress Notes * Tayler Tam RN - 08/14/2015 1029 EDT Initial Case Management/Social Work Assessment and Discharge Plan/Readmission Risk Assessment Reason for Admission: s/p excision of left level 2 neck mass Patient Contact Information: see facesheet LIVING ARRANGEMENTS AND ACCESSIBILITY ISSUES: House in [place] What in home social supports are available to the patient? Lives with her son and daughter in law as well as her grandchildren, 4 yr old twins and a 3 yr old. She is generally caregiving for them. ADVANCED DIRECTIVES, POA &/or COLST IN PLACE: No CULTURAL, MORAVIAN and/or LANGUAGE factors affecting health care/discharge planning: N/A Insurance in Place: Yes Type of Insurance: Medicare, Medicaid, Coverage for prescriptions MEDICARE TYPE: A, B MEDICAID TYPE: Community COVERAGE FOR MEDICATION IN PLACE: yes DISCHARGE RISK ASSESSMENT: Repeat hospitalizations/ED visits Total # selected above: Score of 1 - 2: This patient is at LOW RISK for re-hospitalization Tentative plan to address the risk of re-hospitalization for those at HIGH MODERATE RISK: FUNCTIONAL & PSYCHOSOCIAL INFORMATION: Pt reports being independant at home with ADL's and iADL's. She is usually a caregiver to her grandkids (3 yrs and 4 yr old twins). She does not use DME. She does not drive. She declines any home health services. Pt has some friends/family that can providerides at times. She is also in the process of setting up [employer] rides. MEDICAL AND COMMUNITY SERVICES: Primary Care Provider: Sherif Bardales Specialists: Skilled home care services: none DME Provider: none Pharmacy: [facility] [place] also [facility] Other: Pt is calling a friend for a ride home. If this plan falls through, please contact me to setup a cab ride. POST HOSPITAL TRANSITION PLAN: Home without services. Tayler Tam RN 08/14/2015 10:30 * Devang Nelson MD - 08/14/2015 0837 EDT Otolaryngology, Head & Neck Surgery Daily Progress Note Hospital LOS: 1 day SUBJECTIVE: Patient with some difficulty with pain control. Tolerating PO fluid intake without nausea. OBJECTIVE: Vitals: Blood pressure 106/62, temperature 35.6 ??C (96.1 ??F), temperature source Temporal, resp. rate 16, height 165.1 cm (65), weight 92.255 kg (203 lb 6.2 oz), SpO2 95 %. I+O last shift:08/14 07 - 08/14 1459 In: 1060 [I.V.:1060] Out: - I+O last 3 shifts: 08/13 07 - 08/14 0659 In: 3375 [P.O.:1230; I.V.:2125] Out: 1225 [Urine:1175] Current Scheduled Meds: ALPRAZolam 1 mg TID ferrous gluconate 324 mg BID (BREAKFAST/DINNER) fluticasone 1 Puff BID pantoprazole 40 mg DAILY tamsulosin 0.4 mg DAILY Labs: Lab Results Component Value Date WBC 1.65* 08/13/2015 HGB 11.7 08/13/2015 HCT 36.0 08/13/2015 PLT 61* 08/13/2015 NA 139 07/31/2015 K 4.0 07/31/2015 CL 104 07/31/2015 CO2 28 07/31/2015 BUN 8* 07/31/2015 CREATININE 0.68 07/31/2015 GLUCOSEFINGE 47* 06/18/2015 Physical Exam: GEN: Lying comfortably, no acute distress, cooperative. CV: Normal S1/S2, RRR without murmurs, rubs, or gallops. PULM: CTAB without added sounds. HEENT: neck incision c/d/i - without hematoma. Drains: serosanguinous output 20cc overnight ASSESSMENT: POD#1 s/p excision of left level 2 neck mass. Will adjust her pain medications, will remove drain and plan for discharge this afternoon. Patient Active Problem List Diagnosis ??? Kidney stone ??? Nausea with vomiting ??? Chest pain ??? Pancytopenia ??? Acute left flank pain ??? Mild persistent asthma without complication ??? NAFLD (nonalcoholic fatty liver disease) ??? Splenomegaly ??? Pyelonephritis ??? C. difficile colitis ??? Neck mass PLAN: Pain control Diet and activity as tolerated D/c home this afternoon Devang Nelson MD Otolaryngology, Head & Neck Surgery Please call the [facility] service pager with any questions or concerns. 8:37 08/14/2015 * Wilian Rodriguez MD - 08/13/2015 1423 EDT Otolaryngology, Head & Neck Surgery POST-OPERATIVE CHECK Hospital LOS: 0 days SUBJECTIVE: Patient with good pain control. Tolerating PO fluid intake without nausea. OBJECTIVE: Vitals: Blood pressure 110/57, temperature 36.1 ??C (97 ??F), temperature source Tympanic, resp. rate 16, height 165.1 cm (65), weight 92.255 kg (203 lb 6.2 oz), SpO2 97 %. I+O last shift:08/13 0700 - 08/13 1459 In: 1863.3 [P.O.:510; I.V.:1353.3] Out: 150 [Urine:100] I+O last 3 shifts: Current Scheduled Meds: ALPRAZolam 1 mg TID ferrous gluconate 324 mg BID (BREAKFAST/DINNER) fluticasone 1 Puff BID pantoprazole 40 mg DAILY tamsulosin 0.4 mg DAILY Labs: Lab Results Component Value Date WBC 1.65* 08/13/2015 HGB 11.7 08/13/2015 HCT 36.0 08/13/2015 PLT 55* 08/13/2015 NA 139 07/31/2015 K 4.0 07/31/2015 CL 104 07/31/2015 CO2 28 07/31/2015 BUN 8* 07/31/2015 CREATININE 0.68 07/31/2015 GLUCOSEFINGE 47* 06/18/2015 Physical Exam: GEN: Lying comfortably, no acute distress, cooperative. CV: Normal S1/S2, RRR without murmurs, rubs, or gallops. PULM: CTAB without added sounds. HEENT: neck incision c/d/i - without hematoma. Drains: serosanguinous output ASSESSMENT: POD#0 s/p excision of left level 2 neck mass. Doing well post-operatively. Patient Active Problem List Diagnosis ??? Kidney stone ??? Nausea with vomiting ??? Chest pain ??? Pancytopenia ??? Acute left flank pain ??? Mild persistent asthma without complication ??? NAFLD (nonalcoholic fatty liver disease) ??? Splenomegaly ??? Pyelonephritis ??? C. difficile colitis ??? Neck mass PLAN: Admit to floor Pain control Diet and activity as tolerated Anticipate d/c tomorrow Wilian Rodriguez MD Otolaryngology, Head & Neck Surgery Please call the [facility] service pager with any questions or concerns. 14:24 08/13/2015 * Dana Chew RN - 07/29/2015 1206 EDT Tara Boothe has been instructed as follows regarding medication administration for the day of the scheduled procedure. Date of Surgery: 08/06/15 Instructions for Taking Medications Day of Surgery Medication Sig Last Dose Hold DOS Take DOS albuterol 90 mcg/actuation inhaler Inhale 2 Puffs as directed every 4 hours. y ALPRAZolam (XANAX) 1 mg tablet Take 1 mg by mouth 3 times daily. y ferrous gluconate (FERGON) 324 mg (38 mg iron) tablet Take 324 mg by mouth 2 times daily with breakfast and dinner. n fluticasone (FLOVENT) 110 mcg/actuation inhaler Inhale 110 mcg as directed 2 times daily. y LEVOTHYROXINE SODIUM (LEVOTHYROXINE ORAL) Take 0.25 mg by mouth daily Unknown dose y ondansetron (ZOFRAN, HYDROCHLORIDE,) 4 mg tablet Take 2 Tabs by mouth every 8 hours as needed for Nausea y oxybutynin (DITROPAN) 5 mg tablet Take 1 Tab by mouth 2 times daily as needed for Pain y oxyCODONE (ROXICODONE) 5 mg immediate release tablet Take 0.5 Tabs by mouth every 6 hours as neededfor Pain Daily Max: 10 mg 07/29/2015 No longer has any pantoprazole (PROTONIX) 40 mg tablet Take 40 mg by mouth daily. y rifAXImin (XIFAXAN) 550 mg tablet Take 550 mg by mouth 2 times daily Yes tamsulosin (FLOMAX) 0.4 mg capsule Take 1 Cap by mouth daily y vancomycin (VANCOCIN) 125 mg capsule Take 1 Cap by mouth 4 times daily for 11 days 08/05/15 should be completed documented in this encounter H&P Notes * Serene Vaughan MD - 08/13/2015 0721 EDT I have reviewed Tara Boothe's history and physical and agree. Her preoperative history and physical, which was performed within 30 days of this procedure, has been reviewed and the clinically appropriate elements of the physical examination have been repeated. There are no changes to the documented history and physical or if so such changes are documented below. Please see my outpatient notes. Serene Vaughan MD repeat CBC is pending to check plt. Source Note - ASSISTANT GENERAL MANAGER, SCAN 2 - 08/11/2015 15:05 EDT documented in this encounter OR Notes * OR Surgeon - Soni Leyva MD - 08/13/2015 1222 EDT OPERATIVE REPORT SERVICE DATE: 08/13/2015 SURGEON: Serene Vaughan MD HOSPITAL MEDICAL ASSISTANT: Soni Leyva MD and Blayne Cox MS4 PREOPERATIVE DIAGNOSIS: Left level 2 neck mass. POSTOPERATIVE DIAGNOSIS: Left level 2 neck mass. PROCEDURE: Excision of left level 2 neck mass. FINDINGS: Inflamed cystic mass in left level 2 filled with purulent fluid The spinal accessory nerve was identified and preserved. ANESTHESIA: General endotracheal anesthesia. ESTIMATED BLOOD LOSS: Less than 10 mL. IV FLUIDS: One unit of platelets and 1300 mL of lactated Ringer's. URINE OUTPUT: None recorded. SPECIMENS: Left level 2 neck mass. CULTURES: None. FOREIGN MATERIAL RETAINED: Hemovac drain. COMPLICATIONS: None. DISPOSITION: To PACU in stable condition. NARRATIVE: Ms Boothe was met in the preoperative hold area where all of her questions were answered.She was escorted back to the operating room where a time-out was performed according to WHO standards. She was positioned on the operating room table in the supine position with her head on a surgical donut. She underwent general anesthesia via oral endotracheal tube. A 3 cm incision was marked in an existing neck crease 2 fingerbreadths below the mandible on the left side of her neck. This was infiltrated with 1% lidocaine with epinephrine. She was then prepped and draped in a sterile fashion.After waiting an adequate time for vasoconstriction, an incision was made through the skin and platysma using a 10 blade. Inferiorly and superior based subplatysmal flaps were raised. The Schnidt forceps were used to dissect down on the anterior border of the sternocleidomastoid muscle until the mass was encountered. Dissection carefully proceeded to free the mass from its fascial attachments using bipolar cautery, the Harmonic scalpel and surgical clips for hemostasis. The mass was noted to be superficial to the 11th nerve, which was identified and carefully preserved. Once the mass was excised in its entirety, the wound bed was irrigated with normal saline. A Hemovac drain was placed in the wound bed and the wound was closed in a layered fashion using 3-0 Monocryl for the platysma and deep dermal sutures and surgical glue for the skin. There were no complications. All counts were correct at the close and Dr Vaughan was present and actively participated in the care of the patient for the duration of the case. Unless otherwise noted, there were no complications, no blood loss, no cultures obtained, no specimens removed, and no drains retained. Serene Vaughan MD 10 05 AM / Soni Leyva MD cn Confirmation: [id number] Dictation ID: [id number] cc: Soni Vaughan MD Cosigned by Serene Vaughan MD at 08/26/2015 16:00 EDT documented in this encounter Miscellaneous Notes * Plan of Care - Saida Ashley RN - 08/14/2015 1209 EDT Problem: Daily Care Plan Goals Goal: Care Plan Documentation 08/14/15 0827 Care Plan Focus Area of Focus Mobility Goal This Shift pt will ambulate around unit prior to d/c Nursing Discharge Note D: Patient noted with discharge orders to: home. A: Prescriptions tubed to pharmacy. Reviewed discharge instructions and prescriptions with Patient IV d/c'd. Belongings collected and sent home with patient. Pt ambulated on unit with no issues. R: Patient verbalized understanding of discharge instructions and denied further questions. 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 Saida Ashley RN 08/14/2015 12:06 * Plan of Care - Cadence Weber RN - 08/13/2015 1305 EDT Problem: Skin Integrity: Goal: Skin integrity will improve or be maintained Data: [facility] s/p L Neck Mass Excision . Action: Assessment completed. Pt oriented to room, floor and plan of care. Pt medicated for pain. Response: Pt stable at this time. States pain has improved. Pt verbalizes understanding of plan of care. * Brief Op Note - Soni Leyva MD - 08/13/2015 0736 EDT Otolaryngology, Head & Neck Surgery BRIEF OPERATIVE NOTE Surgeon: Serene Vaughan MD Pricing Supervisor: Soni Leyva MD Pre-Op Diagnosis: left level II neck mass Post-Op Diagnosis: same Procedure: excision left level II neck mass (21260) Findings: Inflamed cystic mass, left level II Cranial nerve XI identified and preserved Anesth: GETA EBL: <10 cc IVF: 1 units platelets, 1300 cc LR UOP: None recorded Specimen: Left level II neck mass Cultures: none Foreign Material Retained: hemovac drain Complications: none Dispo: To PACU in stable condition Soni Leyva MD 08/13/2015, 7:36 #[id number] documented in this encounter Plan of Treatment Upcoming Encounters Date Type Department Care Team (Late st Contact Info) Description 01/04/2025 13:00 EST Office Visit [facility] Ophthalmology - [address] [phone] Gagandeep Rome MD [address] [place] [address], [facility] [address] [place] [id number] 02/11/2025 13:30 EDT Telemedicine [facility] Hematology & Oncology - [address] [phone] Dana Padilla MD [address] [place] [address], [facility] [address] [place] [address] documented as of this encounter Procedures Procedure Name Priority Date/Time Associated Diagnosis Comments TRANSFUSION RECORD - SCANNED 08/18/2015 10:29 EDT ECG REPORT - SCANNED 08/18/2015 10:01 EDT PLATELET COUNT Routine 08/13/2015 20:10 EDT SURGICAL PATHOLOGY Routine 08/13/2015 11 :22 EDT PREPARE PLATELETS Routine 08/13/2015 8:0 5 EDT COMPLETE BLOOD COUNT AND DIFFERENTIAL STAT 08/13/2015 6:36 EDT TYPE AND SCREEN Routine 08/13/2015 6:00 EDT documented in this encounter Results * TRANSFUSION RECORD - SCANNED (08/18/2015 10:29 EDT) 08/18/2015 10:2 9 EDT us Scan 2 [facility] LAB INFO SERVICE AND SUPPOR T & PHONE RESULT Final Result * ECG REPORT - SCANNED (08/18/2015 10:01 EDT) 08/18/2015 10:0 1 EDT us Scan 2 [facility] PROCEDURE/MINOR SURGICAL OR DERABLES Final Result * (ABNORMAL) PLT (08/13/2015 20:10 EDT) PLT 61(L) 141 - 320 K/cmm 08/13/2015 20:21 EDT [facility] Blood specimen (specimen) BLOOD SPECIMEN / Unknown 08/13/2015 20:10 EDT 08/13/2015 20:15 EDT us Soni Leyva MD HEMATOLOGY & PF4 ORDERABLE S Final Result [facility] [address] [place] [address] * SURGICAL PATHOLOGY (08/13/2015 11:22 EDT) Pathology Report: SURGICAL PATHOLOGY REPORT Reports generated via electronic interface contain original data; however they are lacking the format of the original report. Caution should be taken when reading/interpreting unformatted reports. Name: ? TARA BOOTHE ? Accession #: ? [id number] ? : ? 1960 (Age: 55) ??F ? Collect Date: ? 08/13/2015 ? Location: ? M006 ? Receive Date: ? 08/13/2015 ? Provider: SERENE VAUGHAN MD Copy to: SHERIF BARDALES MD ? Final Pathologic Diagnosis: SOFT TISSUE, LEFT LEVEL II NECK MASS, EXCISION - Benign squamous epithelium-lined cyst with associated lymphoid tissue, favor branchial cleft cyst, with features suggestive of previous rupture. - No eh malignancy seen. Comment: This case is reviewed at intradepartmental consultation conference. Document reviewed and electronically signed by: Susan Del Castillo MD Report ??Date: 08/15/2015 16:12 By the signature above, the attending physician certifies that he/she has personally conducted a gross and/or microscopic examination of the described specimens and rendered or confirmed the above diagnosis. Specimen(s) Received: Left level II neck mass Clinical History: Left neck mass Gross Description: ? Received in normal saline labelled with proper patient identification (initials B, P) and left level II neck mass is an unoriented slightly firm ovoid soft tissue (2.3 x 1.6 x 1.2 cm). The outer surface is inked blue. Sectioning discloses a pascual-white and pink cut surface with an adjacent smooth walled lined cyst (1.4 x 0.9 x 0.6 cm) filled with pascual-white thick fluid. The entire specimen is submitted as 1-4. Dr. Butler 08/13/2015 2:21 PM End of Report [facility] 08/13/2015 11:2 2 EDT 08/13/2015 11:22 EDT us Serene Vaughan MD PATHOLOGY ORDERABLES Fi nal Result [facility] [address] [place] [address] * PREPARE PLATELET PHERESIS (08/13/2015 8:05 EDT) Product Code E3087 Apheresis PLATELETS, Leukocytes Reduced [facility] BLOOD [facility] Donor Number [id number] [facility] B[facility] Unit ABO A [facility] BLOOD B[facility] Unit Rh POS [facility]LO[facility] Unit Status Transfuse [facility] Blood specimen (specimen) 08/13/2015 8:05 EDT us Serene Bradshaw MD BLOOD BANK ORDERABLES Final R esult Performing Organization Address City/State/[facility] Co de Phone Number [facility] [address] [place] [address] * (ABNORMAL) HEMAGRAM AND DIFFERENTIAL (08/13/2015 6:36 EDT) WBC 1.65(L) 4.0 - 12.4 K/cmm 08/13/2015 7:16 [facility] RBC 4.14 3.86 - 5.04 M/cmm 08/13/2015 7:16 [facility] Hemoglobin 11.7 11.6 - 15.2 gm/dl 08/13/2015 7:16 [facility] HCT 36.0 34.9 - 44.4 % 08/13/2015 7:16 [facility] MCV 87 81 - 98 fl 08/13/2015 7:16 [facility] MCH 28.2 26.7 - 33.3 pg 08/13/2015 7:16 [facility] MCHC 32.5 32.1 - 35.9 gm/dl 08/13/2015 7:16 [facility] RDW-CV 15.0(H) 11.7 - 14.6 % 08/13/2015 7:16 [facility] RDW-SD 45.1 37.6 - 50.3 fl 08/13/2015 7:16 [facility] PLT 55(L) 141 - 320 K/cmm 08/13/2015 7:16 [facility] MPV 8.2 7.5 - 11.2 fl 08/13/2015 7:16 [facility] Neutrophils 76.0 45.5 - 79.7 % 08/13/2015 7:55 [facility] Lymphocytes 11.0(L) 15.0 - 46.8 % 08/13/2015 7:55 [facility] Monocytes 9.0 1.8 - 12.0 % 08/13/2015 7:55 [facility] Eosinophils 2.0 0.6 - 6.9 % 08/13/2015 7:55 [facility] Basophils 2.0(H) 0.2 - 1.4 % 08/13/2015 7:55 [facility] ABS Neutrophils 1.26(L) 2.20 - 8.85 K/cm 08/13/2015 7:55 [facility] ABS Lymphs 0.18(L) 1.09 - 3.30 K/cm 08/13/2015 7:55 [facility] ABS Monocytes 0.15 0.1 - 0.8 K/cm 08/13/2015 7:55 [facility] ABS Eosinophils 0.03 0.03 - 0.61 K/cm 08/13/2015 7:55 [facility] ABS Basophils 0.03 0.01 - 0.11 K/cm 08/13/2015 7:55 [facility] Ovalocytes 2+ 08/13/2015 7:55 [facility] Type of Diff: Manual 08/13/2015 7:55 [facility] Blood specimen (specimen) BLOOD SPECIMEN / Unknown 08/13/2015 6:36 EDT 08/13/2015 6:55 EDT us Serene Vaughan MD PACKAGES & DNA PROBE OR DERABLES Final Result [facility] [address] [place] [address] * TYPE AND SCREEN (08/13/2015 6:00 EDT) ABO O [facility] Rh Factor Positive [facility] Antibody Screen Negative [facility] BLOOD BANK Specimen Expires: 08/16/2015 @ 23:59 [facility] BLOOD [facility] Blood specimen (specimen) 08/13/2015 6:00 EDT us Devang Nelson MD BLOOD BANK TESTS Final Result Performing Organization Address City/State/[facility] Co de Phone Number [facility] BLOOD BANK [address] [place] [address] documented in this encounter Visit Diagnoses Diagnosis Neck mass- Primary Swelling, mass, or lump in head and neck Neck mass Swelling, mass, or lump in head and neck documented in this encounter Administered Medications Inactive Administered Medications - up to 3 most recent administrations Medication Order MAR Action Action Date Dose Rate Site albuterol inhaler 2 Puff 2 Puff, inhalation, EVERY 4 HOURS PRN, Starting on Tue08/13/15 at 0942, Until Kirsten 08/14/15 at 1404, Wheezing, Routine Given 08/13/2015 12:42 EDT 2 Puffs ALPRAZolam (XANAX) tablet 1 mg 1 mg, oral, 3 TIMES DAILY, First dose on Tue08/13/15 at 1400, Until Discontinued, Routine, On Unit Given 08/14/2015 8:31 EDT 1 mg Given 08/13/2015 20:43 EDT 1 mg Given 08/13/2015 13:55 EDT 1 mg ceFAZolin (ANCEF) syringe 1 g 1 g, intravenous, Administer over 10 Minutes, PRE-OP ONCE, 1 dose, On Tue08/13/15 at 0745, Routine Given by Other 08/13/2015 7:47 EDT 1 g ferrous gluconate (FERGON) tablet 324 mg 324 mg, oral, 2 TIMES DAILY WITH BREAKFAST & DINNER, First dose on Tue08/13/15 at 1700, Until Discontinued, Routine, On Unit Given 08/14/2015 8:29 EDT 324 mg Given 08/13/2015 17:09 EDT 324 mg fluticasone (FLOVENT) 110 mcg/actuation inhaler 1 Puff 1 Puff, inhalation, 2 TIMES DAILY, First dose on Tue08/13/15 at 1245, Until Discontinued, Routine, On Unit Given 08/14/2015 8:34 EDT 1 Puff Given 08/13/2015 20:43 EDT 1 Puff HYDROmorphone (DILAUDID) tablet 2-4 mg 2-4 mg, oral, EVERY 4 HOURS PRN, Starting on Tue08/13/15 at 1714, Until Kirsten 08/14/15 at 0751, Pain, Routine Given 08/14/2015 7:13 EDT 4 mg Given 08/14/2015 3:17 EDT 4 mg Given 08/13/2015 21:28 EDT 4 mg HYDROmorphone (DILAUDID) tablet 2-6 mg 2-6 mg, oral, EVERY 4 HOURS PRN, Starting on Kirsten 08/14/15 at 1100, Until Kirsten 08/14/15 at 1404, Pain, Routine Given 08/14/2015 11:28 EDT 6 mg HYDROmorphone (PF) (DILAUDID) 1 mg/mL injection 0.2-0.4 mg 0.2-0.4 mg, intravenous, EVERY 4 HOURS PRN, Starting on Tue08/13/15 at 1714, Until Kirsten 08/14/15 at 0843, breakthrough pain, not controlled by PO meds, Routine Given 08/14/2015 4:07 EDT 0.4 mg Given 08/13/2015 23:22 EDT 0.4 mg HYDROmorphone (PF) (DILAUDID) 1 mg/mL injection 0.2-0.6 mg 0.2-0.6 mg, intravenous, EVERY 1 HOUR PRN, Starting on Tue08/13/15 at 0941, Until Tue08/13/15 at 1215, Pain, Routine, Recovery (only) Given 08/13/2015 1 1:24 EDT 0.5 mg Given 08/13/2015 11:14 EDT 0.5 mg Given 08/13/2015 10:45 EDT 0.1 mg HYDROmorphone (PF) (DILAUDID) 1 mg/mL injection 1 dose, Starting on Tue08/13/15 at 0949, Until Tue08/13/15 at 0945 lactated ringers (LR) infusion at 25 mL/hr, intravenous, CONTINUOUS, Starting on Tue08/13/15 at 0730, Until Kirsten 08/14/15 at 1404, Routine, Pre Op Day of Surgery New Bag 08/13/2015 7:02 EDT 25 mL/hr ondansetron (PF) (ZOFRAN) injection 2 mg 2 mg, intravenous, PRN, 1 dose, Starting on Tue08/13/15 at 0908, Until Tue08/13/15 at 1123, Nausea, Vomiting, Routine, Recovery (only) Given 08/13/2015 11:23 EDT 2 mg oxyCODONE (ROXICODONE) immediate release tablet 5 mg 5 mg, oral, EVERY 4 HOURS PRN, Starting on Tue08/13/15 at 1220, Until Tue08/13/15 at 1715, Pain, Routine, On Unit Given 08/13/2015 17:09 EDT 5 mg Given 08/13/2015 13:13 EDT 5 mg oxyCODONE (ROXICODONE) immediate release tablet 5-10 mg 5-10 mg, oral, PRN, 2 doses, Starting on Tue08/13/15 at 0908, Until Tue08/13/15 at 1215, Pain, Routine, Recovery (only) Given 08/13/2015 9:45 EDT 10 mg pantoprazole (PROTONIX) tablet 40 mg 40 mg, oral, DAILY, First dose on Tue08/13/15 at 1245, Until Discontinued, Routine, On Unit Given 08/14/2015 8:29 EDT 40 m g Given 08/13/2015 13:55 EDT 40 mg sodium chloride 0.9 % (NS) infusion at 100 mL/hr, intravenous, CONTINUOUS, Starting on Tue08/13/15 at 0930, Until Kirsten 08/14/15 at 1404, Routine, On Unit Rate Documented 08/13/2015 12:39 EDT 100 mL/hr New Bag 08/13/2015 11:28 EDT 100 mL/hr tamsulosin (FLOMAX) capsule 0.4 mg 0.4 mg, oral, DAILY, First dose on Tue08/13/15 at 1245, Until Discontinued, Routine, On Unit Given 08/14/2015 8:29 EDT 0 .4 mg Given 08/13/2015 13:55 EDT 0.4 mg documented in this encounter Discontinued Medications Medication Sig Discontinue Reason Start Date End Da te LACTULOSE ORAL Take by mouth. Error 07/29/2015 phenazopyridine (PYRIDIUM) 200 mg tablet Take 1 Tab by mouth 3 times daily as needed for Pain Error 07/15/2015 07/29/2015 UNABLE TO FIND Xyfexen_ a liver antibioltic Error 07/29/2015 cyanocobalamin 500 mcg tablet Take 1,000 mcg by mouth daily. Error 07/29/2015 HYDROmorphone (DILAUDID) 2 mg tablet Take 1-2 Tabs by mouth every 4 hours as needed for Pain Daily Max: 24 mg 08/14/2015 08/14/2015 oxyCODONE (ROXICODONE) 5 mg immediate release tablet Take 0.5 Tabs by mouth every 6 hours as needed for Pain Daily Max: 10 mg 07/25/2015 08/14/2015 documented as of this encounter Historical Medications * This list may reflect changes made after this encounter. rifAXImin (XIFAXAN) 550 mg tablet Take 550 mg by mouth 2 times daily 01/03/2019 added in this encounter Active and Recently Administered Medications Times are shown in EDT. Scheduled Medication Order 08/12/2015 08/13/2015 08/14/2015 ALPRAZolam (XANAX) tablet 1 mg (CANCELED) 1 mg, oral, 3 TIMES DAILY, First dose on Tue08/13/15 at 1400, Until Discontinued, Routine, On Unit 1355 (Given - Provider: Cadence [place] RN)204 (Given - Provider: Corrina Bello RN) 0831 (Given - Provider: Saida Ashley RN) ceFAZolin (ANCEF) syringe 1 g (COMPLETED) 1 g, intravenous, Administer over 10 Minutes, PRE-OP ONCE, 1 dose, On Tue08/13/15 at 0745, Routine 0747 (Given by Other - Provider: Francesca Renteria RN - Comment: Given in OR by Poli Owens MD) ferrous gluconate (FERGON) tablet 324 mg (CANCELED) 324 mg, oral, 2 TIMES DAILY WITH BREAKFAST & DINNER, First dose on Tue08/13/15 at 1700, Until Discontinued, Routine, On Unit 1709 (Given - Provider: Cadence [place] RN) 0829 (Given - Provider: Saida [place] RN) fluticasone (FLOVENT) 110 mcg/actuation inhaler 1 Puff (CANCELED) 1 Puff, inhalation, 2 TIMES DAILY, First dose on Tue08/13/15 at 1245, Until Discontinued, Routine, On Unit 1245 (Not Given - Provider: Cadence [place], KENN - Reason: Other)2042 (Given - Provider: Corrina Bello RN) 0834 (Given - Provider: Saida Ashley RN - Comment: pt self administered) pantoprazole (PROTONIX) tablet 40 mg (CANCELED) 40 mg, oral, DAILY, First dose on Tue08/13/15 at 1245, Until Discontinued, Routine, On Unit 1355 (Given - Provider: Cadence [place], KENN) 0829 (Given - Provider: Saida Ashley, KENN) tamsulosin (FLOMAX) capsule 0.4 mg (CANCELED) 0.4 mg, oral, DAILY, First dose on Tue08/13/15 at 1245, Until Discontinued, Routine, On Unit 1355 (Given - Provider: Caednce [place], KENN) 0829 (Given - Provider: Saida Ashley RN) Continuous Medication Order 08/12/2015 08/13/2015 08/14/2015 lactated ringers (LR) infusion (CANCELED) at 25 mL/hr, intravenous, CONTINUOUS, Starting on Tue08/13/15 at 0730, Until Kirsten 08/14/15 at 1404, Routine, Pre Op Day of Surgery 0702 (New Bag - Provider: Arely Olivares, KENN)0931 (Completed - Provider: Zoila Chew, KENN) sodium chloride 0.9 % (NS) infusion (CANCELED) at 100 mL/hr, intravenous, CONTINUOUS, Starting on Tue08/13/15 at 0930, Until Kirsten 08/14/15 at 1404, Routine, On Unit 0931 (Continued Infusion - Provider: Zoila Chew, RN)1128 (New Bag - Provider: Brandon Brumfield RN)1239 (Rate Documented - Provider: Cadence [place], RN) 0719 (Completed - Provider: Corrina Bello, RN - Comment: per ) PRN Medication Order 08/12/2015 08/13/2015 08/14/2015 albuterol inhaler 2 Puff (CANCELED) 2 Puff, inhalation, EVERY 4 HOURS PRN, Starting on Tue08/13/15 at 0942, Until Kirsten 08/14/15 at 1404, Wheezing, Routine 1242 (Given - Provider: Cecil Wright, RT) HYDROmorphone (DILAUDID) tablet 2-4 mg (CANCELED) 2-4 mg, oral, EVERY 4 HOURS PRN, Starting on Tue08/13/15 at 1714, Until Tue08/14/15 at 0751, Pain, Routine 1757 (Given - Provider: Cadence [place] RN)2128 (Given - Provider: Corrina Bello RN) 0317 (Given - Provider: Corrina Bello RN)0713 (Given - Provider: Corrina Bello RN) HYDROmorphone (DILAUDID) tablet 2-6 mg (CANCELED)(Linked Group 1) 2-6 mg, oral, EVERY 4 HOURS PRN, Starting on Tue08/14/15 at 1100, Until Tue08/14/15 at 1404, Pain, Routine 1128 (Given - Provid er: Anila Gill RN) HYDROmorphone (PF) (DILAUDID) 1 mg/mL injection 0.2-0.4 mg (CANCELED) 0.2-0.4 mg, intravenous, EVERY 4 HOURS PRN, Starting on Tue08/13/15 at 1714, Until Kirsten 08/14/15 at 0843, breakthrough pain, not controlled by PO meds, Routine 2322 (Given - Provider: Corrina Bello RN) 0407 (Given - Provider: Corrina Bello RN) HYDROmorphone (PF) (DILAUDID) 1 mg/mL injection 0.2-0.6 mg (CANCELED) 0.2-0.6 mg, intravenous, EVERY 1 HOUR PRN, Starting on Tue08/13/15 at 0941, Until Tue08/13/15 at 1215, Pain, Routine, Recovery (only) 0945 (Given - Provider: Zoila Chew RN)1000 (Given - Provider: Zoila Chew RN)1015 (Given - Provider: Zoila Chew RN)1045 (Given - Provider: Zoila Chew RN)1114 (Given - Provider: Brandon Brumfield RN)1124 (Given - Provider: Brandon Brumfield RN) ondansetron (PF) (ZOFRAN) injection 2 mg (COMPLETED) 2 mg, intravenous, PRN, 1 dose, Starting on Tue08/13/15 at 0908, Until Tue08/13/15 at 1123, Nausea, Vomiting, Routine, Recovery (only) 1123 (Given - Provider: Brandon Brumfield RN) oxyCODONE (ROXICODONE) immediate release tablet 5 mg (CANCELED) 5 mg, oral, EVERY 4 HOURS PRN, Starting on Tue08/13/15 at 1220, Until Tue08/13/15 at 1715, Pain, Routine, On Unit 1313 (Given - Provider: Cadence [place], KENN)1709 (Given - Provider: Cadence [place], KENN) oxyCODONE (ROXICODONE) immediate release tablet 5-10 mg (CANCELED) 5-10 mg, oral, PRN, 2 doses, Starting on Tue08/13/15 at 0908, Until Tue08/13/15 at 1215, Pain, Routine, Recovery (only) 0945 (Given - Provider: Zoila Chew RN) Linked Groups Order Group 1: HYDROmorphone (DILAUDID) tablet 2-6 mg (CANCELED)Jump to med 2-6 mg, oral, EVERY 4 HOURS PRN, Starting on Kirsten 08/14/15 at 1100, Until Kirsten 08/14/15 at 1404, Pain, Routine Or Hydromorphone (DILAUDID) liquid 2-6 mg (CANCELED) 2-6 mg, oral, EVERY 4 HOURS PRN, Starting on Kirsten 08/14/15 at 1100, Until Kirsten 08/14/15 at 1404, Pain, Routine documented in this encounter Orders Medications Ordered That Luc ht Not Have Been Administered Count Last Ordered Date First Ordered Date Hydromorphone (DILAUDID) liquid 2-6 mg 1 albuterol inhaler 2 Puff 1 08/13/2015 atropine 0.1 mg/mL syringe 0.5 mg 1 015 diphenhydrAMINE (BENADRYL) i njection 6.25 mg 1 08/13/2015 fentaNYL citrate (PF) 50 mcg /mL injection 25-100 mcg 1 08/13/2015 Hydromorphone (DILAUDID) liquid 2-4 mg 1 ibuprofen (MOTRIN) tablet 800 mg 1 08/13/20 15 lactated ringers (LR) infusion 1 08/13/2015 nalOXone (NARCAN) injection 0.2 mg 1 2014 ondansetron (ZOFRAN-ODT) dis integrating tablet 2-4 mg 1 08/13/2015 oxybutynin (DITROPAN) tablet 5 mg 1 015 Diet Count Last Ordered Date First Orde red Date DISCHARGE DIET 1 08/14/2015 Nursing Count Last Ordered Date First Orde red Date ACTIVITY INSTRUCTIONS 1 08/14/2015 CONTRAINDICATION TO ANTICOAG ULATION THERAPY 1 08/13/2015 Admission Count Last Ordered Date First Orde red Date STATUS: OUTPATIENT OBSERVATION SERVICES 1 0 08/13/2015 Transfer Count Last Ordered Date First Orde red Date NOTIFY PPS OF DISCHARGE COMPLETE 1 08/14/20 15 NOTIFY PPS PATIENT ARRIVAL IN PACU 1 2014 NOTIFY PPS PATIENT TRANSFERRED OUT OF PACU 1 08/13/2015 PPS NOTIFICATION OF PATIENT ARRIVAL ON UNIT 1 08/13/2015 Discharge Count Last Ordered Date First Orde red Date DISCHARGE PATIENT 1 08/14/2015 Legal Count Last Ordered Date First Orde red Date MISCELLANEOUS DISCHARGE INSTRUCTIONS 3 07/23 documented in this encounter Care Teams Dining Room Host Relationship Specialty Start Date End Date Sherif Bardales MD PCP - General 07/31/15 01/02/17 documented as of this encounter
--- OUTSIDE RECORDS SUMMARY | 2024-11-22 17:30 | XMS_ITS | Encounter Summary ---
Author Organization [facility] Address [address] [place] [address] Care Team Providers Care Deputy County Clerk Name Role Phone None, Provider Primary Care Provider Unavailabl e Reason for Visit * Reason Onset Date Comments Hematuria 01/03/2017 Back Pain 01/03/2017 8 out 10 Encounter Details Date Type Department Care Team (Late st Contact Info) Description 01/03/2017 Telephone [facility] Urology - [facility] [address] [place] [address] Jordan Dickens MD [address] [facility], [address] [place] [address] Hematuria; Back Pain (8 out 10) Social History Tobacco Use Types Packs/Day Years [...] of Assessment Author No 08/13/2015 12:00 EDT Kendall, Rivera a, RN * Are you blind or do [...] Date of Assessment Author No 08/13/2015 12:00 EDRivera Rajan RN * Because of a physical, mental, [...] Rivera Tolbert RN documented in this encounter Miscellaneous Notes * Telephone Encounter - Justina Bustillo RN - 01/03/2017 1100 EST Pt recently moved back into the area. She has been having her healthcare needs met by [facility]. Pt claims she has some blood disorders like low platelet count and low white blood cell count, but has blood clots that are being monitored by CT Scan and MRI in her abdomen. She is currently not on blood thinners, and has been told to not take ibuprofen or acetaminophen. She has developed left flank pain and hematuria in the last 24 hours, her pain 8 out of 10. Pt states she has also had kidney infections since seeing Dr Dickens 2 years ago. Advised to go to ER to be evaluated. Pt reports no fever. * Telephone Encounter - Susan Hilliard - 01/03/2017 1028 EST Reason for Call: Hematuria and Back Pain (8 out 10) Summary/Symptoms: Pt calling again because pain is an 8 out of 10 on pain scale. Pt made aware thatif she felt like she could not wait for a nurse call back, she may want to go to walk in or emergency. Please call pt as soon as you can. Susan Hilliard 01/03/2017 10:30 * Telephone Encounter - Sharon Hernandez - 01/03/2017 1017 EST Reason for Call: Hematuria and Back Pain Summary/Symptoms: Patient is calling stating that she has a pretty good amount of blood in her urine. It started yesterday morning, and progressively has gotten worse. She is also having bilateral back pain, more prominent on the left side. Sharon Hernandez 01/03/2017 10:17 documented in this encounter Plan of Treatment Upcoming Encounters Date Type Department Care Team (Late st Contact Info) Description 01/04/2025 13:00 EST Office Visit [facility] Ophthalmology - [address] [phone] Gagandeep Rome MD [address] [place] [address], [facility] [address] [place] [phone] 02/11/2025 13:[address] [facility] Hematology & Oncology - [address] [phone] Dana Padilla MD [address] [place] [address], [facility] [address] [place] [phone] documented as of this encounter Visit Diagnoses Not on filedocumented in this encounter Care Teams Deputy County Clerk Relationship Specialty Start Date End Date None, Provider PCP - General 01/03/17 02/23/17 documented as of this encounter
--- OUTSIDE RECORDS SUMMARY | 2024-11-22 17:30 | XMS_ITS | Encounter Summary ---
Author Organization [facility] Address [address] [place] [address] Care Team Providers Care Marine Equipment Engineer Name Role Phone Jayden Tijerina MD Primary Care Provider [phone] Reason for Visit * Reason Onset Date Comments Hematuria 12/15/2015 Discuss Test Results 12/17/2015 urine Encounter Details Date Type Department Care Team (Late st Contact Info) Description 12/15/2015 Telephone [facility] Urology - [address] [address] Jordan Dickens MD [address] [facility], [address] [place] [address] Hematuria; Discuss Test Results (urine ) Social History Tobacco Use Types Packs/Day [...] Date of Assessment Author No 08/18/2015 16:14 Rivrea Tolbert RN documented as of this encounter Mental Status * Because of a physical, mental, or emotional condition, does this person have serious difficulty concentrating, remembering, or making decisions? Answer Entry Date Author No 08/18/2015 16:14 Rivera Tolbert RN documented in this encounter Ordered Prescriptions Prescription Sig Dispense Quantity Refills Last Filled Start Date End Date ciprofloxacin HCl (CIPRO) 500 mg tablet Take 1 Tab by mouth every 12 hours for 7 days 14 Tab 0 12/17/2015 12/24/2015 documented in this encounter Miscellaneous Notes * Telephone Encounter - Ne Mari RN - 12/18/2015 0913 EST Culture back. Cipro susceptible. Patient aware to continue on cipro as prescribed and to call back if symptoms persist. No further questions or concerns at this time. * Telephone Encounter - Ebony Laguerre RN - 12/17/2015 1200 EST Preliminary Urine results reviewed with Marika ELDRIDGE. 10,000 to 100,000 Gram Negative bacilli,based on symptoms and preliminary culture results have patient begin Cipro 500 mg PO BID X 7 days. TC to patient to review, patient reports she continues to experience urinary burning and intermittent hematuria. Encouraged patient to increase fluids, reviewed antibiotic and advised if symptoms or worsen or do not improve in a couple days to contact office, patient aware and verbalizes understanding * Telephone Encounter - Dana Dodson Mable - 12/17/2015 1013 EST Patient adding that she had increased bleeding at 4am today. Large clots. * Telephone Encounter - [place] Dana Mable - 12/17/2015 1011 EST Reason for Call: Hematuria and Discuss Test Results Summary/Symptoms: Patient calling for her 1.25 urine sample results Dana FrancisRicci West 12/17/2015 10:11 * Telephone Encounter - Joseline Arcos RN - 12/15/2015 1310 EST TC to pt. Pt has had a cold the last three days with symptoms of fever and coughing. Pt has not seen PCP r/t to cold. Pt started having urinary tract symptoms on 12/13/15. Pt is having bilateral back pain right side having more pain 5/10. Pt is having hematuria, frequency, dysuria, and urgency. Pt describes hematuria is worse at night redish/orange in color, no blood clots. Hematuria decreases during the day. Pt denies fever and has been pushing fluids. Pt believes she is emptying her bladder. Pt will go 12/16/15 to submit urine sample. Pt instructed to go to ED if pain increases, difficulty urinating, or fever develops. Pt understands. * Telephone Encounter - Glenny Vences - 12/15/2015 1019 EST Reason for Call: Hematuria Summary/Symptoms: Patient was seen in 2014 for kidney stone. Experiencing pain in both sides of lower back, right side worse. Blood in urine yesterday, 12/14. Please call after 11:30 AM Glenny Vences 12/15/2015 10:19 documented in this encounter Plan of Treatment Upcoming Encounters Date Type Department Care Team (Late st Contact Info) Description 01/04/2025 13:00 EST Office Visit [facility] Ophthalmology - [address] [phone] Gagandeep Rome MD [address] [place] [address] [address] [place] [address] 02/11/2025 13:30 EDT Telemedicine [facility] Hematology & Oncology [address] [address] Dana Padilla MD [address] [place] [address] [address] [place] [address] documented as of this encounter Results * BACTERIAL CULTURE, URINE (12/16/2015 10:00 EST) Result 10,000 to 100,000 CFU/ml CITROBACTER FREUNDII COMPLEX 12/18/2015 7:50 EST [facility] Result Less than 10,000 CFU/ml Usual urogenital tiffanie. 12/18/2015 7:50 EST [facility] Urine specimen (specimen) URINE / Unknown 12/16/2015 10:00 EST 12/16/2015 10:19 EST Narrative Organism Antibiotic Method Susceptibility 10,000 to 100,000 cfu/ml citrobacter freundii complex Gentamicin SUSCEPTIBILITY (ROSSANA) <=1: Susceptible 10,000 to 100,000 cfu/ml citrobacter freundii complex Trimethoprim-Sulfameth oxazole SUSCEPTIBILITY (ROSSANA) <=20: Susceptible 10,000 to 100,000 cfu/ml citrobacter freundii complex Nitrofurantoin SUSCEPTIBILITY (ROSSANA) <=16: Susceptible 10,000 to 100,000 cfu/ml citrobacter freundii complex Tobramycin SUSCEPTIBILITY (ROSSANA) <=1: Susceptible 10,000 to 100,000 cfu/ml citrobacter freundii complex Ceftriaxone SUSCEPTIBILITY (ROSSANA) <=1: Susceptible 10,000 to 100,000 cfu/ml citrobacter freundii complex Ciprofloxacin SUSCEPTIBILITY (ROSSANA) <=0.25: Susceptible 10,000 to 100,000 cfu/ml citrobacter freundii complex Meropenem SUSCEPTIBILITY (ROSSANA) <=0.25: Susceptible 10,000 to 100,000 cfu/ml citrobacter freundii complex Ertapenem SUSCEPTIBILITY (ROSSANA) <=0.5: Susceptible 10,000 to 100,000 cfu/ml citrobacter freundii complex Susceptibility comment SUSCEPTIBILITY (ROSSANA) 10,000 to 100,000 cfu/ml citrobacter freundii complex Susceptibility comment SUSCEPTIBILITY (ROSSANA) Third generation cephalosporins, such as ceftazidime, ceftriaxone, and cefpodoxime, should be avoided for the treatment of Enterobacter species, Citrobacter species, and Serratia species regardless of in vitro susceptibility. us Jordan Dickens MD MICROBIOLOGY - GENERAL OR DERABLES Final Result [facility] [address] [place] [address] * (ABNORMAL) URINALYSIS WITH REFLEX MICROSCOPIC (12/16/2015 9:59 EST) Color, UA Yellow 12/16/2015 10:43 [facility] Clarity, UA Hazy 12/16/2015 10:43 [facility] Glucose, UA Neg Neg 12/16/2015 10:43 [facility] Bilirubin, UA Neg Neg 12/16/2015 10:43 [facility] Ketones, UA Neg Neg 12/16/2015 10:43 [facility] Specific [place], Urine 1.020 1.001 - 1.035 12/16/2015 10:43 [facility] Blood, UA 3+(A) Neg 12/16/2015 10:43 [facility] pH, UA 7.0 4.6 - 8.0 12/16/2015 10:43 [facility] Protein, UA Neg Neg 12/16/2015 10:43 [facility] Urobilinogen, UA 4.0(H) 0.2 - 1.0 E.U./dl 12/16/2015 10:43 EST [facility] Nitrite, UA Neg Neg 12/16/2015 10:43 EST [facility] Leuk Esterase 1+(A) Neg 12/16/2015 10:43 EST [facility] Urine specimen (specimen) URINE / Unknown 12/16/2015 9:59 EST 12/16/2015 10:19 EST us Jordan Dickens MD URINALYSIS ORDERABLES Fin al Result [facility] [address] [place] [address] documented in this encounter Visit Diagnoses Diagnosis Dysuria- Primary documented in this encounter Discontinued Medications Medication Sig Discontinue Reason Start Date End Da te ondansetron (ZOFRAN, HYDROCHLORIDE,) 4 mg tablet Take 2 Tabs by mouth every 8 hours as needed for Nausea Therapy completed 06/17/2015 12/17/2015 documented as of this encounter Care Teams Marine Equipment Engineer Relationship Specialty Start Date End Date Jayden Tijerina MD PCP - General 07/31/15 01/02/17 documented as of this encounter
--- OUTSIDE RECORDS SUMMARY | 2024-11-22 17:30 | XMS_ITS | Encounter Summary ---
Author Organization [facility] Address [address] [place] [address] Care Team Providers Care Corporate Legal Manager Name Role Phone Jayden Tijerina MD Primary Care Provider [phone] Reason for Visit * Reason Comments Fall Patient sent for chaparro luation from urology where she was seen for her regular appointment , per patient I fell last night from about 14 steps with 10 min LOC patient c/o neck and back pain, pain on taking deep breaths and dizzy Dizziness Encounter Details Date Type Department Care Team (Late st Contact Info) Description 08/18/2015 16:54 EDT - 08/18/2015 22:15 EDT Emergency [facility] Emergency Department - [address] [id number] Vickey Monson MD PA-C [address] [place] [address] Lon Chew MD [address] [place] [address] Hiren Smith PA-C [address] [facility], Level [address] [place] [id number] Emergency, MD Rolando Episodic lightheadedness (Primary Dx); Concussion, with loss of consciousness of 30 minutes or less, initial encounter Discharge Disposition: Home or Self [...] Sign Reading Time Taken Comments Blood Pressure 120/62 08/18/20152131 EDT Pulse 63 08/18/20152131 EDT Temperature 37 ??C (98.6 ??F) 08/18/2015 1703 EDT Respiratory Rate 16 08/18/20152131 EDT Oxygen Saturation 100% 08/18/20152131 EDT Inhaled Oxygen Concentration - - Weight 95.3 kg (210 lb) 08/18/2015 1703 EDT Height 165.1 cm (5' 5) 08/18/2015 170 EDT Body Mass Index 34.95 08/18/2015 1703 EDT documented in this encounter Functional Status * Are you deaf or do you have serious difficulty hearing? Answer Date of Assessment Author No 08/13/2015 12:00 EDT Rivera Argueta RN * Are you blind or do you have serious difficulty seeing, even when wearing glasses? Answer Date of Assessment Author No 08/13/2015 12:00 EDRivera Rajan RN * Do you have serious difficulty walking or climbing stairs? (5 years old or older) Answer Date of Assessment Author No 08/13/2015 12:00 DAVIDT Rivera Argueta RN * Do you have difficulty dressing or bathing? (5 years old or older) Answer Date of Assessment Author No 08/13/2015 12:00 DAVIDT Rivera Argueta RN * Because of a physical, mental, or emotional condition, does this person have difficulty doing errands alone such as visiting a doctor's office or shopping? Answer Date of Assessment Author No 08/18/2015 16:14 EDRivera Rajan RN documented as of this encounter Mental Status * Because of a physical, mental, or emotional condition, does this person have serious difficulty concentrating, remembering, or making decisions? Answer Entry Date Author No 08/18/2015 16:14 Rivera Tolbert RN documented in this encounter Discharge Instructions * Attachments The following attachments cannot be sent through Care Everywhere. * LIGHTHEADEDNESS OR FAINTNESS (MEXICAN) * [facility] CONCUSSION AFTER YOUR VISIT (MEXICAN) documented in this encounter Medications at Time [...] every 4 hours Daily Max: 30 mg 8 Tab 0 08/18/2015 08/20/2015 pantoprazole (PROTONIX) 40 mg tablet Take 40 [...] every 4 hours Daily Max: 30 mg 8 Tab 0 08/18/2015 08/20/2015 documented in this encounter Discharge Disposition Disposition Code Departure Means Destination Home or Self Care Walk-out documented in this encounter ED Notes * Hiren Smith PA - 08/19/2015 1158 EDT Care assumed pending CT head and cervical spine. These imaging studies have no acute findings. Patient was evaluated by and discharged by the ER Attending. * Berlin Evans RN - 08/18/2015 2214 EDT Appears in NAD at time of discharge. States pain level is 1/10 at time of discharge. DC instructions include pain management plan. * Lon Chew MD - 08/18/2015 7118 EDT I, Michaelle Bullock, am scribing for Lon Chew MD. while he is personally performing the service. Michaelle Bullock 08/18/2015 21:44 I performed a history and exam of this patient and discussed the case with the PA. I reviewed this individual's note and I concur with the documented findings and plan of care except as documented differently. ROS as per PA chart. CT head and neck neg This documentation is recorded by Michaelle Bullock acting as Scribe under the direction and presence ofLon Chew MD. Lon Chew MD: I personally performed the services recorded by the scribe in my presence. Iconfirm the scribe's documentation has been reviewed by me to accurately and completely record my work, treatment, procedures, and medical decision making. * Berlin Evans RN - 08/18/2015 1912 EDT Blood drawn via saline lock per protocol, tiger and purple tube(s) sent to lab per order. * Vickey Monson PA - 08/18/2015 6447 EDT Images from the original note were not included. DOS: 08/18/2015 Chief Complaint Patient presents with ??? Fall Patient sent for evaluation from urology where she was seen for her regular appointment , per patient I fell last night from about 14 steps with 10 min LOC patient c/o neck and back pain, pain on taking deep breaths and dizzy ??? Dizziness HPI The patient is a 55 y.o. female who presents today with Fall and Dizziness HPI Comments: 55-year-old female with history of neck mass status post left neck mass removal on August 13, 2015 and recent nephrolithiasis and stent placement back in June which was removed earlier this morning presents today after undergoing a fall last night. Patient states she had surgery 5 days ago and has been taking oxycodone with relief of pain symptoms. She was climbing the stairs at her house last night to go to bed and became very lightheaded and fell down the 14 steps. She hit her chin and lost consciousness for 10 minutes. Patient has bruising under the chin with no acute bleeding. States she has a pounding 10/10 headache here in the department today with no relief with her oxycodone at home. Denies any fever, chills, nausea, vomiting, chest pain, SOB, abdominal pain, or back pain. Dizziness Associated symptoms: headaches Associated symptoms: no chest pain, no diarrhea, no nausea, no shortness of breath and no vomiting Trauma Current symptoms: Associated symptoms: Reports headache and neck pain. Denies abdominal pain, back pain, chest pain, nausea and vomiting. Review of Systems Review of Systems Constitutional: Negative for fever and chills. HENT: Positive for facial swelling. Negative for congestion, ear discharge and ear pain. Eyes: Negative for visual disturbance. Respiratory: Negative for choking and shortness of breath. Cardiovascular: Negative for chest pain. Gastrointestinal: Negative for nausea, vomiting, abdominal pain, diarrhea and constipation. Genitourinary: Negative for dysuria. Musculoskeletal: Positive for neck pain. Negative for back pain, gait problem and neck stiffness. Skin: Negative for rash. Neurological: Positive for dizziness and headaches. Negative for weakness and light-headedness. Psychiatric/Behavioral: Negative for confusion. All other systems [...] Sulfa (Sulfonamide Antibiotics) Rash Vital Signs Temp: 37 ??C (98.6 ??F) Temp src: Oral Pulse: 82 Resp: 16 SpO2: 98 % BP: 141/84 mmHg BP Device: BP Machine Patient Position: Sitting [...] discharge. Left eye exhibits no discharge. Neck: Trachea normal. Neck supple. No hepatojugular reflux and no JVD present. No spinous process tenderness and no muscular tenderness present. No rigidity. Edema and decreased range of motion present. No tracheal deviation and no erythema present. No Brudzinski's sign and no Kernig's sign noted. Ecchymosis directly under the chin. Left sided linear incision intact s/p surgery 5 days ago. No surrounding erythema or edema. Cardiovascular: Normal rate, regular rhythm and normal heart sounds. Pulmonary/Chest: Breath sounds normal. No respiratory distress. Abdominal: Soft. There is no tenderness. Neurological: She is alert and oriented to person, place, and time. She has normal strength. No cranial nerve deficit or sensory deficit. Coordination normal. Skin: No rash noted. Psychiatric: She has a normal mood and affect. Nursing note and vitals reviewed. RESULTS EKG orders: EKG 12-LEAD ECG Reviewed: Findings include: normal EKG, normal sinus rhythm, unchanged from previous tracings. The study has been independently viewed by me. The study has been interpreted independently and contemporaneously by me. The EKG appears to be a good tracing. Attending riprap worker not immediately available for acute interpretation. Radiology orders: CT ANGIOGRAM HEAD AND NECK ED Lab Results Labs Reviewed - No data to display Procedures ED COURSE A medical screening exam was performed. 55-year-old female with history of neck mass status post left neck mass removal on August 13, 2015 and recent nephrolithiasis and stent placement back in June which was removed earlier this morning presents today after undergoing a fall last night. Tenderness to anterior neck under chin with ecchymosis and edema. Trachea midline, no SOB Left sided incision from surgery 5 days ago appears intact with no surrounding erythema. Patient has diffuse pain throughout her head. CN2-[address] and Neck ordered. Heme with diff, CMP, ordered Awaiting results from Head and neck CT. Patient signed out to CHENTE Smith for further treatment. ASSESSMENT AND PLAN Final diagnoses: None DISPOSITION: No disposition on file The patient's pain was managed to an adequate level weighing risk vs. benefit of further medications. Upon departure from the Emergency Department, the patient's pain was on a zero to ten scale. Condition at departure from the Emergency Department: PCP: Jayden ROLLE Number of Diagnoses or Management Options Amount and/or Complexity of Data Reviewed Review and summarize past medical records: yes Pan Chew was available for supervision. 08/18/2015 17:57 No flowsheet data found. * Berlin Evans RN - 08/18/2015 1753 EDT CHENTE swanson the bedside to assess the patient * Laurent Ernandez - 08/18/2015 1719 EDT 12 Lead EKG Performed by LAURENT ERNANDEZ and shown to Pan Chew MD * Roberto Tyson - 08/18/2015 1657 EDT TCALL: MANOJ BOOTHE [id number] UROLOGY (DR. BAUER) REFERS PT TO [facility] FOR EVAL. CC: FELL LAST NIGHT,NO RECALL. LARGE HEMATOMA FRONT OF NECK AND L SHOULDER, PAIN /10. HAD STENT REMOVAL WITH DR. BAUER. 138/80 72 97% (GMD) documented in this encounter Plan of Treatment Upcoming Encounters Date Type Department Care Team (Late st Contact Info) Description 01/04/2025 13:00 EST Office Visit [facility] Ophthalmology - [address] [phone] Gagandeep Rome MD [address] [place] [address], [facility] [address] [place] [address] 02/11/2025 13:30 EDT Telemedicine [facility] Hematology & Oncology - [address] [phone] Dana Padilla MD [address] [place] [address], [facility] [address] [place] [address] documented as of this encounter Procedures Procedure Name Priority Date/Time Associated Diagnosis Comments ECG REPORT - SCANNED 08/21/2015 20:[address] HEAD WO CONTRAST 08/18/2015 2 1:[address] CERVICAL SPINE WO CONTRAST 08/18/2015 21:01 EDT POCT URINE DIPSTICK, CLINITEK STAT 08/18/2015 19:55 EDT COMPLETE BLOOD COUNT AND DIFFERENTIAL STAT 08/18/2015 19:03 EDT COMPREHENSIVE METABOLIC PANEL (CMP) STAT 08/18/2015 19:03 EDT EKG 12-LEAD STAT 08/18/2015 17:14 EDT documented in this encounter Results * ECG REPORT - SCANNED (08/21/2015 20:37 EDT) 08/21/2015 20:3 7 EDT us Scan 2 Mission Coordinator PROCEDURE/MINOR SURGICAL OR DERABLES Final Result * CT CERVICAL SPINE WO CONTRAST (08/18/2015 21:01 EDT) Anatomical Region Laterality Modality Other 08/18/2015 21:0 1 EDT 08/19/2015 15:33 EDT Narrative 08/19/2015 15:[address] HEAD WO CONTRAST, CT CERVICAL SPINE WO CONTRAST Signs and Symptoms: ??headache s/p fall with +LOC and neck pain. Comparison: CT head dated December 10, 2014. CT neck dated June 17, 2015. Technique: CT images were obtained from the vertex through the lung apices with sagittal and coronal reformats. Findings: CT HEAD: Minimal soft tissue injury is noted deep to the scalp within the bilateral, left greater than right occipitoparietal region. There is no intracranial mass, hemorrhage, or extra-axial collection. No mass effect or midline shift is identified. Mild parenchymal volume loss is noted. The basal cisterns are patent. The orbits appear unremarkable. The paranasal sinuses and mastoids are clear. The calvarium demonstrates diffuse expansion of the diploic space. The parotid glands are prominent bilaterally, right greater than left. CT CERVICAL SPINE: Hyperdense linear opacities are noted within the left neck adjacent to the internal jugular vein and anterior border of the sternocleidomastoid, likely surgical clips from the prior level II neck mass resection. There is thickening of the platysma and subcutaneous stranding. There is no evidence of fluid collection or mass in the region. There is no mass effect. Nonspecific straightening of the cervical curve. No acute fracture or listhesis is appreciated. There is no traumatic prevertebral soft tissue swelling. Vertebral body heights are preserved. There is mild decrease in intervertebral disc height. Multilevel degenerative changes are once again noted within the cervical spine. Severe degenerative changes at the anterior medial atlantoaxial joint with degenerative narrowing of the predental space. Large bridging osteophytes along the left anterolateral margin of the lower cervical spine at C6/7 noted. Mild uncovertebral hypertrophy is noted at the lower cervical levels. Impression: 1. No acute intracranial abnormality. 2. Intracranial volume loss advanced for age. Normal ventricular size. 3. Postoperative changes within the left neck. 4. Diffuse expansion of the diploic space, this finding may be seen in the setting of chronic anemia. 5. No evidence of acute fracture of the cervical spine. 6. Degenerative changes of the cervical spine with severe degenerative changes at the anterior medial atlantoaxial joint and large anterolateral bridging osteophytes on the left at C6/7. Please see above I have personally reviewed the images and the above interpretation and agree with the findings. Procedure Note Ryan Crisostomo MD - 08/19/2015 CT HEAD WO CONTRAST, CT CERVICAL SPINE WO CONTRAST Signs and Symptoms: headache s/p fall with +LOC and neck pain. Comparison: CT head dated December 10, 2014. CT neck dated June 17, 2015. Technique: CT images were obtained from the vertex through the lung apices with sagittal and coronal reformats. Findings: CT HEAD: Minimal soft tissue injury is noted deep to the scalp within the bilateral, left greater than right occipitoparietal region. There is no intracranial mass, hemorrhage, or extra-axial collection. No mass effect or midline shift is identified. Mild parenchymal volume loss is noted. The basal cisterns are patent. The orbits appear unremarkable. The paranasal sinuses and mastoids are clear. The calvarium demonstrates diffuse expansion of the diploic space. The parotid glands are prominent bilaterally, right greater than left. CT CERVICAL SPINE: Hyperdense linear opacities are noted within the left neck adjacent to the internal jugular vein and anterior border of the sternocleidomastoid, likely surgical clips from the prior level II neck mass resection. There is thickening of the platysma and subcutaneous stranding. There is no evidence of fluid collection or mass in the region. There is no mass effect. Nonspecific straightening of the cervical curve. No acute fracture or listhesis is appreciated. There is no traumatic prevertebral soft tissue swelling. Vertebral body heights are preserved. There is mild decrease in intervertebral disc height. Multilevel degenerative changes are once again noted within the cervical spine. Severe degenerative changes at the anterior medial atlantoaxial joint with degenerative narrowing of the predental space. Large bridging osteophytes along the left anterolateral margin of the lower cervical spine at C6/7 noted. Mild uncovertebral hypertrophy is noted at the lower cervical levels. Impression: 1. No acute intracranial abnormality. 2. Intracranial volume loss advanced for age. Normal ventricular size. 3. Postoperative changes within the left neck. 4. Diffuse expansion of the diploic space, this finding may be seen in the setting of chronic anemia. 5. No evidence of acute fracture of the cervical spine. 6. Degenerative changes of the cervical spine with severe degenerative changes at the anterior medial atlantoaxial joint and large anterolateral bridging osteophytes on the left at C6/7. Please see above I have personally reviewed the images and the above interpretation and agree with the findings. us Vickey Monson MD, PA-C IMG CT ORDERABL ES Final Result * CT HEAD WO CONTRAST (08/18/2015 21:01 EDT) Anatomical Region Laterality Modality Other 08/18/2015 21:0 1 EDT 08/19/2015 15:33 EDT Narrative 08/19/2015 15:[address] HEAD WO CONTRAST, CT CERVICAL SPINE WO CONTRAST Signs and Symptoms: ??headache s/p fall with +LOC and neck pain. Comparison: CT head dated December 10, 2014. CT neck dated June 17, 2015. Technique: CT images were obtained from the vertex through the lung apices with sagittal and coronal reformats. Findings: CT HEAD: Minimal soft tissue injury is noted deep to the scalp within the bilateral, left greater than right occipitoparietal region. There is no intracranial mass, hemorrhage, or extra-axial collection. No mass effect or midline shift is identified. Mild parenchymal volume loss is noted. The basal cisterns are patent. The orbits appear unremarkable. The paranasal sinuses and mastoids are clear. The calvarium demonstrates diffuse expansion of the diploic space. The parotid glands are prominent bilaterally, right greater than left. CT CERVICAL SPINE: Hyperdense linear opacities are noted within the left neck adjacent to the internal jugular vein and anterior border of the sternocleidomastoid, likely surgical clips from the prior level II neck mass resection. There is thickening of the platysma and subcutaneous stranding. There is no evidence of fluid collection or mass in the region. There is no mass effect. Nonspecific straightening of the cervical curve. No acute fracture or listhesis is appreciated. There is no traumatic prevertebral soft tissue swelling. Vertebral body heights are preserved. There is mild decrease in intervertebral disc height. Multilevel degenerative changes are once again noted within the cervical spine. Severe degenerative changes at the anterior medial atlantoaxial joint with degenerative narrowing of the predental space. Large bridging osteophytes along the left anterolateral margin of the lower cervical spine at C6/7 noted. Mild uncovertebral hypertrophy is noted at the lower cervical levels. Impression: 1. No acute intracranial abnormality. 2. Intracranial volume loss advanced for age. Normal ventricular size. 3. Postoperative changes within the left neck. 4. Diffuse expansion of the diploic space, this finding may be seen in the setting of chronic anemia. 5. No evidence of acute fracture of the cervical spine. 6. Degenerative changes of the cervical spine with severe degenerative changes at the anterior medial atlantoaxial joint and large anterolateral bridging osteophytes on the left at C6/7. Please see above I have personally reviewed the images and the above interpretation and agree with the findings. Procedure Note Ryan Crisostomo MD - 08/19/2015 CT HEAD WO CONTRAST, CT CERVICAL SPINE WO CONTRAST Signs and Symptoms: headache s/p fall with +LOC and neck pain. Comparison: CT head dated December 10, 2014. CT neck dated June 17, 2015. Technique: CT images were obtained from the vertex through the lung apices with sagittal and coronal reformats. Findings: CT HEAD: Minimal soft tissue injury is noted deep to the scalp within the bilateral, left greater than right occipitoparietal region. There is no intracranial mass, hemorrhage, or extra-axial collection. No mass effect or midline shift is identified. Mild parenchymal volume loss is noted. The basal cisterns are patent. The orbits appear unremarkable. The paranasal sinuses and mastoids are clear. The calvarium demonstrates diffuse expansion of the diploic space. The parotid glands are prominent bilaterally, right greater than left. CT CERVICAL SPINE: Hyperdense linear opacities are noted within the left neck adjacent to the internal jugular vein and anterior border of the sternocleidomastoid, likely surgical clips from the prior level II neck mass resection. There is thickening of the platysma and subcutaneous stranding. There is no evidence of fluid collection or mass in the region. There is no mass effect. Nonspecific straightening of the cervical curve. No acute fracture or listhesis is appreciated. There is no traumatic prevertebral soft tissue swelling. Vertebral body heights are preserved. There is mild decrease in intervertebral disc height. Multilevel degenerative changes are once again noted within the cervical spine. Severe degenerative changes at the anterior medial atlantoaxial joint with degenerative narrowing of the predental space. Large bridging osteophytes along the left anterolateral margin of the lower cervical spine at C6/7 noted. Mild uncovertebral hypertrophy is noted at the lower cervical levels. Impression: 1. No acute intracranial abnormality. 2. Intracranial volume loss advanced for age. Normal ventricular size. 3. Postoperative changes within the left neck. 4. Diffuse expansion of the diploic space, this finding may be seen in the setting of chronic anemia. 5. No evidence of acute fracture of the cervical spine. 6. Degenerative changes of the cervical spine with severe degenerative changes at the anterior medial atlantoaxial joint and large anterolateral bridging osteophytes on the left at C6/7. Please see above I have personally reviewed the images and the above interpretation and agree with the findings. us Vickey Monson MD PA-C IMG CT ORDERABL ES Final Result * (ABNORMAL) POCT URINE DIPSTICK (08/18/2015 19:55 EDT) Color BRANDEN 08/18/2015 19:58 [facility] Clarity, UA CLOUDY 08/18/2015 19:58 [facility] Glucose Neg Neg 08/18/2015 19:58 [facility] Bilirubin 1+(A) Neg 08/18/2015 19:58 [facility] Ketones Neg Neg 08/18/2015 19:58 [facility] Specific Center 1.020 1.001 - 1.035 08/18/2015 19:58 [facility] Blood 3+(A) Neg 08/18/2015 19:58 [facility] pH 8.5(H) 4.6 - 8.0 08/18/2015 19:58 [facility] Protein 2+(A) Neg 08/18/2015 19:58 [facility] Urobilinogen 1.0 0.2 - 1.0 E.U./dl 08/18/2015 19:58 EDT [facility] Nitrite Neg Neg 08/18/2015 19:58 T [facility] Leuk Esterase Trace(A) Neg 08/18/2015 19:58 T [facility] rn forensic ID [id number] 08/18/2015 19:58 T [facility] Comment:Test performed at [facility] Urine specimen (specimen) URINE / Unknown 08/18/2015 19:55 EDT 08/18/2015 19:58 EDT us Vickey Monson MD PA-C POINT OF CARE T EST ORDERABLES Final Result [facility] [address] [place] [address] * (ABNORMAL) COMPREHENSIVE METABOLIC PANEL (CMP) (08/18/2015 19:03 EDT) Potassium 4.0 3.5 - 5.0 mEq/L 08/18/2015 19:47 [facility] Comment: Slight hemolysis Hemolysis may elevate potassium result. Sodium 139 136 - 145 mEq/L 08/18/2015 19:47 [facility] Comment:Slight hemolysis Chloride 104 96 - 110 mEq/L 08/18/2015 19:47 [facility] Comment:Slight hemolysis CO2 27 24 - 32 mEq/L 08/18/2015 19:47 [facility] Comment:Slight hemolysis Total Alkaline Phosphatase 83 38 - 126 U/L 08/18/2015 19:47 [facility] Comment: Slight hemolysis Hemolysis will decrease ALKP result Suggest re-evaluation if clinically indicated Bilirubin, Total 1.0 <1.4 mg/dl 08/18/20 15 19:47 [facility] Comment: Slight hemolysis Results may be affected due to hemolysis. AST 32 15 - 46 U/L 08/18/2015 19:47 [facility] Comment: Slight hemolysis Results may be affected due to hemolysis. ALT 22 <53 U/L 08/18/2015 19:47 [facility] Comment: Slight hemolysis Results may be affected due to hemolysis. Albumin 3.4 3.4 - 4.9 g/dl 08/18/2015 19:47 [facility] Comment: Slight hemolysis Results may be affected due to hemolysis. Total Protein 6.4 6.3 - 8.2 g/dl 08/18/2015 19:47 [facility] Comment: Slight hemolysis Results may be affected due to hemolysis. Creatinine 0.70 0.52 - 1.04 mg/dl 08/18/2015 19:47 [facility] Comment:Slight hemolysis GFR, Calculated 98 >60 ml/min/1.7 3m2 08/18/2015 19:47 [facility] Comment: eGFR calculated using CKD-EPI equation for non Americans. Multiply eGFR by 1.16 for Americans. BUN 8(L) 10 - 26 mg/dl 08/18/2015 19:47 [facility] Comment: Slight hemolysis Results may be affected due to hemolysis. Calcium 8.7 8.5 - 10.5 mg/dl 08/18/2015 19:47 [facility] Comment:Slight hemolysis Calculated Calcium 9.7 8.5 - 10.5 mg/dl 08/18/2015 19:47 [facility] Glucose, Serum 81 70 - 100 mg/dl 08/18/2015 19:47 [facility] Comment: Slight hemolysis Results may be affected due to hemolysis. Fasting? Unknown 08/18/2015 19:14 [facility] Blood specimen (specimen) BLOOD SPECIMEN / Unknown 08/18/2015 19:03 EDT 08/18/2015 19:14 EDT us Vickey Monson MD PA-C CHEMISTRY & BLO OD GAS ORDERABLES Final Result [facility] [address] [place] [address] * (ABNORMAL) HEMAGRAM AND DIFFERENTIAL (08/18/2015 19:03 EDT) WBC 1.61(L) 4.0 - 12.4 K/cmm 08/18/2015 19:33 [facility] RBC 3.64(L) 3.86 - 5.04 M/cmm 08/18/2015 19:33 [facility] Hemoglobin 10.5(L) 11.6 - 15.2 gm/dl 08/18/2015 19:33 [facility] HCT 31.1(L) 34.9 - 44.4 % 08/18/2015 19:33 [facility] MCV 86 81 - 98 fl 08/18/2015 19:33 [facility] MCH 28.9 26.7 - 33.3 pg 08/18/2015 19:33 [facility] MCHC 33.8 32.1 - 35.9 gm/dl 08/18/2015 19:33 [facility] RDW-CV 14.7(H) 11.7 - 14.6 % 08/18/2015 19:33 [facility] RDW-SD 43.8 37.6 - 50.3 fl 08/18/2015 19:33 [facility] PLT 76(L) 141 - 320 K/[facility] 08/18/2015 19:33 [facility] MPV 8.3 7.5 - 11.2 fl 08/18/2015 19:33 [facility] Neutrophils 70.0 45.5 - 79.7 % 08/18/2015 20:15 [facility] Lymphocytes 22.0 15.0 - 46.8 % 08/18/2015 20:15 [facility] % Atyp Lymphs 1.0 % 08/18/2015 20:15 [facility] Monocytes 5.0 1.8 - 12.0 % 08/18/2015 20:15 [facility] Eosinophils 2.0 0.6 - 6.9 % 08/18/2015 20:15 [facility] ABS Neutrophils 1.13(L) 2.20 - 8.85 K/cm 08/18/2015 20:15 [facility] ABS Lymphs 0.35(L) 1.09 - 3.30 K/cmm 08/18/2015 20:15 EDT [facility] ABS Atyp Lymphs 0.02 K/cmm 5 20:15 EDT [facility] ABS Monocytes 0.08(L) 0.1 - 0.8 K/cmm 08/18/2015 20:15 EDT [facility] ABS Eosinophils 0.03 0.03 - 0.61 K/cmm 08/18/2015 20:15 EDT [facility] Ovalocytes 2+ 08/18/2015 20:15 EDT [facility] Type of Diff: Manual 08/18/2015 20:15 EDT [facility] Blood specimen (specimen) BLOOD SPECIMEN / Unknown 08/18/2015 19:03 EDT 08/18/2015 19:14 EDT us Vickey Monson MD PA-C PACKAGES & DNA PROBE ORDERABLES Final Result Performing Organization Address City/State/[facility] Co de Phone Number [facility] [address] [place] [address] * EKG 12-LEAD (08/18/2015 17:14 EDT) 08/18/2015 17:1 4 EDT Narrative [facility] EKG - 08/20/2015 9:58 EDT ?[facility] Emergency ? Test Date: ?2015-08-18 Pat Name: ? PHYLISS BOOTHE ?Department: ?? ED ? Room: ? HOWARD B Gender: ? F ?Tube Sorter: ?? [id number] : ?1960 ? Requested By: KELLY Ramirez Order Number: [id number] ? Jose PHIPPS: ?? REJI LOZA MD ? Measurements Intervals ?[place] ? Rate: ? 75 ? P: ?58 KS: ? 146 ?QRS: ?56 QRSD: ? 89 ? T: ?44 QT: ? 404 ? QTc: ?452 ? Interpretive Statements NOMRAL SINUS RHYTHM Compared to ECG 07/17/2015 13:11:02 No significant changes I reviewed the tracing and have either agreed or edited the findings in this report. Electronically Signed On 08-20-15 09:58:55 EDT by REJI LOZA MD. Procedure Note Reji Loza MD - 08/20/2015 [facility] Emergency Test Date: 2015-08-18 Pat Name: TARA BOOTHE Department: ED Room: [facility] Gender: F Tube Sorter: [id number] : 1960 Requested By: KELLY Ramirez Order Number: [id number] Reading MD: REJI LOZA MD Measurements Intervals [place] Rate: 75 P: 58 KS: 146 QRS: 56 QRSD: 89 T: 44 QT: 404 QTc: 452 Interpretive Statements NOMRAL SINUS RHYTHM Compared to ECG 07/17/2015 13:11:02 No significant changes I reviewed the tracing and have either agreed or edited the findings inthis report. Electronically Signed On 08-20-15 09:58:55 EDT by REJI MEDLEY. us Lon Chew MD CARDIAC ECG ORDERABLES Final Result [facility] EKG documented in this encounter Visit Diagnoses Diagnosis Episodic lightheadedness- Primary Dizziness and giddiness Concussion, with loss of consciousness of 30 minutes or less, initial encounter documented in this encounter Administered Medications Inactive Administered Medications - up to 3 most recent administrations Medication Order MAR Action Action Date Dose Rate Site ondansetron (PF) (ZOFRAN) 4 mg/2 mL injection 1 dose, Starting on Tue08/18/15 at 2109, Until Tue08/18/15 at 2108 ondansetron (PF) (ZOFRAN) injection 4 mg 4 mg, intravenous, NOW X1, 1 dose, On Tue08/18/15 at 2115, STAT Given 08/18/2015 21:08 EDT oxyCODONE (ROXICODONE) 5 mg immediate release tablet 1 dose, Starting on Tue08/18/15 at 2217, Until Tue08/18/15 at 2214 oxyCODONE (ROXICODONE) immediate release tablet 5 mg 5 mg, oral, NOW X1, 1 dose, On Tue08/18/15 at 1900, STAT Given 08/18/2015 19:12 EDT 5 mg oxyCODONE (ROXICODONE) immediate release tablet 5 mg 5 mg, oral, NOW X1, 1 dose, On Tue08/18/15 at 2045, STAT Given 08/18/2015 21:08 EDT 5 mg oxyCODONE (ROXICODONE) immediate release tablet 5 mg 5 mg, oral, NOW X1, 1 dose, On Tue08/18/15 at 2215, STAT Given 08/18/2015 22:14 EDT sodium chloride 0.9 % BOLUS 1,000 mL 1,000 mL, intravenous, NOW X1, 1 dose, On Tue08/18/15 at 1900, STAT New Bag 08/18/2015 19:12 EDT 1,000 mL documented in this encounter Discontinued Medications Medication Sig Discontinue Reason Start Date End Da te oxyCODONE (ROXICODONE) 5 mg immediate release tablet Take 1 Tab by mouth every 4 hours Daily Max: 30 mg 08/14/2015 08/18/2015 documented as of this encounter Active and Recently Administered Medications Times are shown in EDT. Scheduled Medication Order 08/16/2015 08/17/2015 08/18/2015 ondansetron (PF) (ZOFRAN) injection 4 mg (COMPLETED) 4 mg, intravenous, NOW X1, 1 dose, On Tue08/18/15 at 2115, STAT 2108 (Given - Provid er: Berlin Evans RN) oxyCODONE (ROXICODONE) immediate release tablet 5 mg (COMPLETED) 5 mg, oral, NOW X1, 1 dose, On Tue08/18/15 at 1900, STAT 1912 (Given - Provid er: Berlin Evans RN) oxyCODONE (ROXICODONE) immediate release tablet 5 mg (COMPLETED) 5 mg, oral, NOW X1, 1 dose, On Tue08/18/15 at 2045, STAT 2108 (Given - Provid er: Berlin Evans RN) oxyCODONE (ROXICODONE) immediate release tablet 5 mg (COMPLETED) 5 mg, oral, NOW X1, 1 dose, On Tue08/18/15 at 2215, STAT 2214 (Given - Provid er: Berlin Evans RN) sodium chloride 0.9 % BOLUS 1,000 mL (COMPLETED) 1,000 mL, intravenous, NOW X1, 1 dose, On Tue08/18/15 at 1900, STAT 1912 (New Bag - Prov ider: Berlin Evans, KENN)2125 (Completed - Provider: Berlin Evans RN) documented in this encounter Care Teams Corporate Legal Manager Relationship Specialty Start Date End Date Jayden Tijerina MD PCP - General 07/31/15 01/02/17 documented as of this encounter
--- OUTSIDE RECORDS SUMMARY | 2024-11-22 17:30 | XMS_ITS | Encounter Summary ---
Author Organization [facility] Address [address] [place] [address] Care Team Providers Care Passport Support Associate Name Role Phone Jayden Tijerina MD Primary Care Provider [phone] Reason for Visit * Reason Onset Date Comments Appointment Related 11/20/2015 Encounter Details Date Type Department Care Team (Late st Contact Info) Description 11/20/2015 Telephone [facility] Cardiology - Joe [address] [place] [address] Ruth Tena, RN [address] [id number] Appointment Related Social History Tobacco Use Types [...] Answer Entry Date Author No 08/18/2015 16:14 EDRivera Rajan RN documented in this encounter Miscellaneous Notes * Telephone Encounter - Ruth Tena RN - 11/20/2015 1340 EST Left message with patient and gave instructions for stress test. Reminded patient to abstain from caffeine for 12 hours, NPO 4 hours except water, wear comfortable clothing and shoes to walk on treadmill and do not apply any lotions or creams to the chest and abdomen areas. Patient aware of campus,date and time. documented in this encounter Plan of Treatment Upcoming Encounters Date Type Department Care Team (Late st Contact Info) Description 01/04/2025 13:00 EST Office Visit [facility] Ophthalmology - [address] 585[address] Gagandeep Rome MD [address] [place] [address] 5 [place] [address] 02/11/2025 13:30 EDT Telemedicine [facility] Hematology & Oncology - [address] [phone] Dana Padilla MD [address] [place] [address] 2 [place] [address] documented as of this encounter Visit Diagnoses Not on filedocumented in this encounter Care Teams Passport Support Associate Relationship Specialty Start Date End Date Jayden Tijerina MD PCP - General 07/31/15 01/02/17 documented as of this encounter
--- OUTSIDE RECORDS SUMMARY | 2024-11-22 17:30 | XMS_ITS | Encounter Summary ---
Author Organization [facility] Address [address] [place] [address] Care Team Providers Care Auto Electrician Name Role Phone Jayden Tijerina MD Primary Care Provider [phone] Reason for Visit * Reason Onset Date Comments Hand Pain 12/15/2015 Encounter Details Date Type Department Care Team (Late st Contact Info) Description 12/15/2015 Telephone [facility] Rheumatology & Immunology - [address] [phone] aCs Mari Chi, MD [address] [place] [address], [address] [place] [address] Hand Pain Social History Tobacco Use Types Packs/Day [...] Miscellaneous Notes * Telephone Encounter - Janeth Lee RN - 12/16/2015 1620 EST Called to speak to pt regarding request for appointment for injection. Pt reports that she did not call for an appointment and has only spoken to urology about a different issue. Confirmed date of . Spoke with call center and unsure what pt may have called with issue but will try to determine the patient. * Telephone Encounter - Glenny Vences - 12/15/2015 1306 EST Reason for Call: Hand Pain Summary/Symptoms: Patient experience pain and swelling in her right hand index finger, asking to come in for Cortisone shot before 01/05/16. Leaving for vacation. Glenny Vences 12/15/2015 13:07 documented in this encounter Plan of Treatment Upcoming Encounters Date Type Department Care Team (Late st Contact Info) Description 01/04/2025 13:00 EST Office Visit [facility] Ophthalmology - [address] [phone] Gagandeep Rome MD [address] [place] [address], [facility] 5 [place] [phone] 02/11/2025 13:30 EDT Telemedicine [facility] Hematology & Oncology - [address] [phone] Dana Padilla MD [address] [place] [address], [facility] [address] [place] [phone] documented as of this encounter Visit Diagnoses Not on filedocumented in this encounter Care Teams Auto Electrician Relationship Specialty Start Date End Date Jayden Tijerina MD PCP - General 07/31/15 01/02/17 documented as of this encounter
--- OUTSIDE RECORDS SUMMARY | 2024-11-22 17:30 | XMS_ITS | Encounter Summary ---
Author Organization [facility] Address [address] [place] [address] Care Team Providers Care Delivery Rep Name Role Phone Emigdio Centeno MD Primary Care Provider [phone] Reason for Visit * Reason Onset Date Comments Hospital Discharge Follow Up 07/30/2015 Encounter Details Date Type Department Care Team (Late st Contact Info) Description 07/30/[address] [address] Kimberley Garrido [address] [place] [address] Hospital Discharge Follow Up Social History Tobacco [...] Date of Assessment Author No 07/18/2015 0:[address] seble Elliott RN * Do you have difficulty dressing or bathing? (5 years old or older) Answer Date of Assessment Author No 07/18/2015 0:[address] seble Elliott RN * Because of a physical, mental, or emotional condition, do you have difficulty doing errands alone such as visiting a doctor's office or shopping? (15 years old or older) Answer Date of Assessment Author No 07/18/2015 0:[address] se[facility] Elliott RN documented as of this encounter Mental Status * Because of a physical, mental, or emotional condition, do you have serious difficulty concentrating, remembering, or making decisions? (5 years old or older) Answer Entry Date Author No 07/18/2015 0:[address] se[facility] Elliott RN documented in this encounter Miscellaneous Notes * Telephone Encounter - Kimberley Garrido - 07/30/2015 0930 EDT Called patient in follow-up from discharge. Kimberley Garrido Hospitalist Service 07/30/2015 9:30 documented in this encounter Plan of Treatment Upcoming Encounters Date Type Department Care Team (Late st Contact Info) Description 01/04/2025 13:00 EST Office Visit [facility] Ophthalmology - [address] [phone] Gagandeep Rome MD [address] [place] [address], [facility] [address] [place] [address] 02/11/2025 13:30 EDT Telemedicine [email or web address] Hematology & Oncology [address] [phone] Dana Padlila MD [address] [place] [address], [facility] [address] [place] [address] documented as of this encounter Visit Diagnoses Not on filedocumented in this encounter Care Teams Delivery Rep Relationship Specialty Start Date End Date Emigdio Centeno MD [address] [place] [address] PCP - General 09/14/14 07/30/15 documented as of this encounter
--- OUTSIDE RECORDS SUMMARY | 2024-11-22 17:30 | XMS_ITS | Encounter Summary ---
Author Organization [facility] Address [address] [place] [address] Care Team Providers Care Medical Appointment Scheduler Name Role Phone Jayden Tijerina MD Primary Care Provider [phone] Encounter Details Date Type Department Care Team (Late st Contact Info) Description 12/16/2015 Phlebotomy Only [facility] [address] [place] [address] Business Change Manager, Outpatient Dysuria (Primary Dx) Social History Tobacco Use Types [...] Assessment Author No 08/13/2015 12:00 EDT Rivera Arugeta RN * Do you have difficulty dressing [...] Rivera Argueta RN documented in this encounter Plan of Treatment Upcoming Encounters Date Type Department Care Team (Late st Contact Info) Description 01/04/2025 13:00 EST Office Visit [facility] Ophthalmology - [address] [phone] Gagandeep Rome MD [address] [place] [address] 5 [place] [phone] 02/11/2025 13:30 EDT Telemedicine [facility] Hematology & Oncology [address] [phone] Dana Padilla MD [address] [place] [address], [facility] [address] [place] [phone] documented as of this encounter Procedures Procedure Name Priority Date/Time Associated Diagnosis Comments BACTERIAL CULTURE, URINE Routine 12/16/2015 10:00 EST Dysuria URINALYSIS WITH MICROSCOPIC IF POSITIVE Routine 12/16/2015 9:59 EST Dysuria documented in this encounter Results * BACTERIAL CULTURE, URINE (12/16/2015 10:00 EST) Result 10,000 to 100,000 CFU/ml CITROBACTER FREUNDII COMPLEX 12/18/2015 7:50 EST [facility] Result Less than 10,000 CFU/ml Usual urogenital tiffanie. 12/18/2015 7:50 EST [facility] Urine specimen (specimen) URINE / [...] MICROBIOLOGY - GENERAL OR DERABLES Final Result [facility] [address] [place] [address] * (ABNORMAL) URINALYSIS WITH REFLEX MICROSCOPIC (12/16/2015 9:59 EST) Color, UA Yellow 12/16/2015 10:43 EST [facility] Clarity, UA Hazy 12/16/2015 10:43 [facility] Glucose, UA Neg Neg 12/16/2015 10:43 [facility] Bilirubin, UA Neg Neg 12/16/2015 10:43 [facility] Ketones, UA Neg Neg 12/16/2015 10:43 [facility] Specific [place], Urine 1.020 1.001 - 1.035 12/16/2015 10:43 [facility] Blood, UA 3+(A) Neg 12/16/2015 10:43 [facility] pH, UA 7.0 4.6 - 8.0 12/16/2015 10:43 [facility] Protein, UA Neg Neg 12/16/2015 10:43 [facility] Urobilinogen, UA 4.0(H) 0.2 - 1.0 E.U./dl 12/16/2015 10:43 [facility] Nitrite, UA Neg Neg 12/16/2015 10:43 [facility] Leuk Esterase 1+(A) Neg 12/16/2015 10:43 [facility] Urine specimen (specimen) URINE / Unknown 12/16/2015 9:59 EST 12/16/2015 10:19 EST us Jordan Dickens MD URINALYSIS ORDERABLES Fin al Result Performing Organization Address City/State/[facility] Co de Phone Number [facility] [address] [place] [address] documented in this encounter Visit Diagnoses Diagnosis Dysuria- Primary documented in this encounter Care Teams Medical Appointment Scheduler Relationship Specialty Start Date End Date Jayden Tijerina MD PCP - General 07/31/15 01/02/17 documented as of this encounter
--- OUTSIDE RECORDS SUMMARY | 2024-11-22 17:30 | XMS_ITS | Encounter Summary ---
Author Organization [facility] Address [address] [place] [address] Care Team Providers Care Railroad Firer Name Role Phone Jayden Tijerina MD Primary Care Provider [phone] Encounter Details Date Type Department Care Team ([facility] st Contact Info) Description 08/26/2015 Results Only [facility] [phone] Jayden Tijerina MD [address] [place] [address] Social History Tobacco Use Types Packs/Day Years [...] [facility] Ophthalmology - [address] [phone] Gagandeep Roem MD [address] [place] [address], [facility] [address] [place] [phone] 02/11/2025 13:30 EDT Telemedicine [facility] Hematology & Oncology [address] [phone] Dana Padilla MD [address] [place] [address], [address] [place] [phone] documented as of this encounter Procedures Procedure Name Priority Date/Time Associated Diagnosis Comments TSH Routine 08/26/2015 14:34 EDT MAGNESIUM Routine 08/26/2015 14:34 EDT documented in this encounter Results * TSH (08/26/2015 14:34 EDT) TSH 2.78 0.55 - 4.78 uIU/ml 08/26/2015 20:46 EDT [facility] BLOOD SPECIMEN / Unknown 08/26/2015 14:34 EDT 08/26/2015 18:33 EDT us Jayden Tijerina MD CHEMISTRY & BLOOD GAS ORDERABLE S Final Result Performing Organization Address [facility] de Phone Number [facility] [address] [place] [address] * MAGNESIUM (08/26/2015 14:34 EDT) Magnesium 1.9 1.7 - 2.8 mg/dl 08/26/2015 19:16 EDT [facility] BLOOD SPECIMEN / Unknown 08/26/2015 14:34 EDT 08/26/2015 18:33 EDT us Jayden Tijerina MD CHEMISTRY & BLOOD GAS ORDERABLE S Final Result Performing Organization Address [facility] de Phone Number [facility] [address] [place] [address] documented in this encounter Visit Diagnoses Not on filedocumented in this encounter Care Teams Railroad Firer Relationship Specialty Start Date End Date Jayden Tijerina MD PCP - General 07/31/15 01/02/17 documented as of this encounter
--- OUTSIDE RECORDS SUMMARY | 2024-11-22 17:30 | XMS_ITS | Encounter Summary ---
Author Organization [facility] Address [address] [place] [address] Care Team Providers Care Functional Skills Tutor Name Role Phone Jayden Tijerina MD Primary Care Provider [phone] Reason for Visit * Reason Comments Dental Pain broke R lower molar 2d ago. awoke with pain and R facial swelling. Encounter Details Date Type Department Care Team (Late st Contact Info) Description 05/04/2016 13:00 EDT - 05/04/2016 14:05 EDT Emergency [facility] Emergency Department - [address] [id number] Sabina Okeefe PA-Salvador [address] [place] [phone] Pam Rivas PA-C [address] [place] [phone] Emergency, MD Rolando Dental infection (Primary Dx) Discharge Disposition: Home or Self [...] Sign Reading Time Taken Comments Blood Pressure 148/78 05/04/2016 1307 EDT Pulse 83 05/04/2016 1307 EDT Temperature 36.8 ??C (98.2 ??F) 05/04/2016 1307 EDT Respiratory Rate 18 05/04/2016 1307 EDT Oxygen Saturation 99% 05/04/2016 1307 EDT Inhaled Oxygen Concentration - - Weight [...] * Discharge Instructions* Pam Rivas PA - 05/04/2016 13:52 EDT Your exam is consistent with an infection associated with your tooth but at this point I do not think there is a collection of pus that needs to be opened. Recommend that you start the antibiotics and watch closely for worsening. If you develop significant increase in pain or swelling, are having high fevers, the swelling is not improving after 2-3 days or there are other concerning symptoms please return for evaluation. In the short term can take tramadol as needed for severe pain. * Attachments The following attachments cannot be sent through Care Everywhere. * TOOTH: ABSCESSED (TUNISIAN) documented in this encounter Medications at Time of Discharge albuterol 90 mcg/actuation inhaler Inhale 2 Puffs as directed every 4 hours as needed. 09/18/2021 ALPRAZolam (XANAX) 1 mg tablet Take 1 mg by mouth 3 times daily. 09/30/2017 clindamycin (CLEOCIN) 300 mg capsule Take 1 Cap by mouth every 6 hours for 10 days. 40 Cap 0 05/04/2016 05/14/2016 ferrous gluconate (FERGON) 324 mg (38 mg iron) tablet Take 324 mg by mouth daily with breakfast. 04/23/2021 fluticasone (FLOVENT) 110 mcg/actuation inhaler Inhale 110 mcg as directed 2 times daily. 11/26/2019 LEVOTHYROXINE SODIUM (LEVOTHYROXINE ORAL) Take 25 mcg by mouth daily. Unknown dose 11/03/2020 oxyCODONE (ROXICODONE) 5 mg immediate release tablet Take 1 Tab by mouth every 6 hours as needed for Pain. Daily Max: 20 mg 5 Tab 0 05/04/2016 01/03/2017 pantoprazole (PROTONIX) 40 mg tablet Take 40 mg by mouth daily. 01/03/2019 rifAXImin (XIFAXAN) 550 mg tablet Take 550 mg by mouth 2 times daily 01/03/2019 documented as of this encounter Ordered Prescriptions Prescription Sig Dispense Quantity Refills Last Filled Start Date End Date oxyCODONE (ROXICODONE) 5 mg immediate release tablet Take 1 Tab by mouth every 6 hours as needed for Pain. Daily Max: 20 mg 5 Tab 0 05/04/2016 01/03/2017 clindamycin (CLEOCIN) 300 mg capsule Take 1 Cap by mouth every 6 hours for 10 days. 40 Cap 0 05/04/2016 05/14/2016 documented in this encounter Discharge Disposition Disposition Code Departure Means Destination Home or Self Care Car Home documented in this encounter ED Notes * Pam Rivas PA - 05/04/2016 1358 EDT Images from the original note were not included. DOS: 05/04/2016 Chief Complaint Patient presents with ??? Dental Pain broke R lower molar 2d ago. awoke with pain and R facial swelling. HPI The patient is a 55 y.o. female who presents today with Dental Pain HPI Comments: 55 yo female w hx of cirrhosis (related to non alcoholic fatty liver dz and causing low platelets), RA, asthma presents for evaluation of facial swelling. Smokes 1/2 ppd. She reports that two days ago a right lower tooth broke while she was eating. It did not become painful until today when she awoke with significant swelling adjacent. She notes an associated headache. Not having fevers. Swallowing ok. The pain is moderate to severe. She has not been taking anything for it, was advised not to take nsaids b/c of platelets or tylenol due to liver dz. Dental Pain Associated symptoms: facial swelling and headaches Associated symptoms: no fever Review of Systems Review of Systems Constitutional: Negative for fever. HENT: Positive for dental problem and facial swelling. Eyes: Negative for visual disturbance. Respiratory: Negative for shortness of breath. Cardiovascular: Negative for chest pain. Gastrointestinal: Positive for nausea. Negative for vomiting. Skin: Negative for color change. Neurological: Positive for headaches. Psychiatric/Behavioral: Negative for confusion. The [...] Sulfa (Sulfonamide Antibiotics) Rash Vital Signs Temp: 36.8 ??C (98.2 ??F) Temp src: Tympanic Pulse: 83 Resp: 18 SpO2: 99 % BP: (!) 148/78 mmHg BP Device: BP Machine Patient Position: Sitting O2 Device: None (Room air) Physical Exam Constitutional: She appears well-developed and well-nourished. No distress. HENT: Head: Normocephalic and atraumatic. Right Ear: External ear normal. Left Ear: External ear normal. Nose: Nose normal. Mouth/Throat: Mucous membranes are normal. No trismus in the jaw. Last tooth on lower right, which i believe is the 1st premolar has significant decay posteriorly, adjacent there is tenderness of gingiva and cheek with some swelling. There is no erythema and no fluctuance. Floor of mouth is soft, submandibular area is soft. Eyes: Pupils are equal, round, and reactive to light. Right eye exhibits no discharge. Left eye exhibits no discharge. Neck: Normal range of motion. Neck supple. No tracheal deviation present. Cardiovascular: Normal rate, regular rhythm and normal heart sounds. Pulmonary/Chest: Breath sounds normal. No respiratory distress. Abdominal: Soft. There is no tenderness. Musculoskeletal: Normal range of motion. Neurological: She is alert. She has normal strength. No sensory deficit. Skin: No rash noted. She is not diaphoretic. Psychiatric: She has a normal mood and affect. Nursing note and vitals reviewed. RESULTS EKG orders: None Radiology orders: None ED Lab Results Labs Reviewed - No data to display Procedures ED COURSE A medical screening exam was performed. AVSS, patient well apperaing, has sig dental decay and adjacent swelling for one day. No e/o fluctuant collection that needs drainage at this time. Will have her take clindamycin and watch closely for worsening. She will return here as needed and arrange f[facility] as she needs a clinic accessible by public transportation but also could walk to that clinic. ASSESSMENT AND PLAN Final diagnoses: Dental infection ED Current Prescriptions Medication Dispense Auth. Provider clindamycin (CLEOCIN) 300 mg capsule 40 Cap Pam Rivas PA oxyCODONE (ROXICODONE) 5 mg immediate release tablet 5 Tab Pam Rivas PA DISPOSITION: Discharged The patient's pain was managed to an adequate level weighing risk vs. benefit of further medications. Upon departure from the Emergency Department, the patient's pain was 8 on a zero to ten scale. Condition at departure from the Emergency Department: Stable PCP: Jayden Tijerina MDM Number of Diagnoses or Management Options Dental infection: Diagnosis management comments: 3 Karol Schlein was available for supervision. 05/04/2016 13:58 No flowsheet data found. documented in this encounter Plan of Treatment Upcoming Encounters Date Type Department Care Team (Late st Contact Info) Description 01/04/2025 13:00 EST Office Visit [facility] Ophthalmology - [address] [phone] Gagandeep Rome MD [address] [place] [address], [facility] [address] [place] [phone] 02/11/2025 13:30 EDT Telemedicine [facility] Hematology & Oncology - [address] [phone] Dana Padilla MD [address] [place] [address] [address] [place] [phone] documented as of this encounter Visit Diagnoses Diagnosis Dental infection- Primary Acute apical periodontitis of pulpal origin documented in this encounter Discontinued Medications Medication Sig Discontinue Reason Start Date End Da te oxybutynin (DITROPAN) 5 mg tablet Take 1 Tab by mouth 2 times daily as needed for Pain 07/15/2015 05/04/2016 oxyCODONE (ROXICODONE) 5 mg immediate release tablet Take 1 Tab by mouth every 4 hours Daily Max: 30 mg 08/20/2015 05/04/2016 tamsulosin (FLOMAX) 0.4 mg capsule Take 1 Cap by mouth daily 07/13/2015 05/04/2016 documented as of this encounter Care Teams Functional Skills Tutor Relationship Specialty Start Date End Date Jayden Tijerina MD PCP - General 07/31/15 01/02/17 documented as of this encounter
--- OUTSIDE RECORDS SUMMARY | 2024-11-22 17:30 | XMS_ITS | Encounter Summary ---
Author Organization [facility] Address [address] [place] [id number] Care Team Providers Care [employer] Faculty Member Name Role Phone None, Provider Primary Care Provider Unavailabl e Reason for Visit * Reason Comments Hematuria Hx of thrombocytopen ia, followed at [facility] by hematology. Also c/o of abdominal pain. NAD Encounter Details Date Type Department Care Team (Late st Contact Info) Description 01/03/2017 11:32 EST - 01/03/2017 18:47 EST Emergency [facility] Emergency Department - [address] [phone] Meseret Gregory MD [address], [address] [place] [address] Fausto Roberts MD Emergency, MD Rolando Pyelonephritis (Primary Dx); Hematuria Discharge Disposition: Home or [...] Sign Reading Time Taken Comments Blood Pressure 123/75 01/03/2017 1822 EST Pulse 74 01/03/2017 1822 EST Temperature 35.4 ??C (95.7 ??F) 01/03/2017 1822 EST Respiratory Rate 16 01/03/2017 1822 EST Oxygen Saturation 99% 01/03/2017 1822 EST Inhaled Oxygen Concentration - - Weight 89.8 kg (198 lb) 01/03/2017 1137 EST Height - - Body Mass Index 32.95 08/18/2015 1703 EDT documented in this encounter [...] documented in this encounter Discharge Diagnoses Diagnosis N12 Tubulo-interstitial nephritis, 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-N12[ICD-10-CM] J45.909 Unspecified asthma, uncomplicated-J45.909[ICD-10-CM] K74.60 Unspecified cirrhosis of liver-K74.60[ICD-10-CM] Z79.899 Other mcfp (current) drug therapy-Z79.899[ICD-10-CM] Z88.6 Allergy status to analgesic agent status-Z88.6[ICD-10-CM] Z88.5 Allergy status to narcotic agent status-Z88.5[ICD-10-CM] Z88.2 Allergy status to sulfonamides status-Z88.2[ICD-10-CM] F17.200 Nicotine dependence, unspecified, uncomplicated-F17.200[ICD-10-CM] documented in this encounter Discharge Instructions * Discharge Instructions* Fausto Roberts MD - 01/03/2017 18:31 EST Take the medications as directed. Continue your usual medications and use her oxycodone as needed for any pain not relieved by the Pyridium. Return if you have fever over 101, uncontrolled vomiting, or other new symptoms. Call Dr. Smith tomorrow to arrange follow-up. documented in this encounter Medications at Time of Discharge albuterol 90 mcg/actuation inhaler Inhale 2 Puffs as directed every 4 hours as needed. 09/18/2021 ALPRAZolam (XANAX) 1 mg tablet Take 1 mg by mouth 3 times daily. 09/30/2017 ciprofloxacin HCl (CIPRO) 500 mg tablet Take 1 Tab by mouth every 12 hours for 6 days. 12 Tab 01/03/2017 01/09/2017 ferrous gluconate (FERGON) 324 mg (38 mg iron) tablet Take 324 mg by mouth daily with breakfast. 04/23/2021 fluticasone (FLOVENT) 110 mcg/actuation inhaler Inhale 110 mcg as directed 2 times daily. 11/26/2019 LEVOTHYROXINE SODIUM (LEVOTHYROXINE ORAL) Take 25 mcg by mouth daily. Unknown dose 11/03/2020 oxyCODONE (ROXICODONE) 5 mg immediate release tablet Take 1 Tab by mouth every 4 hours. Daily Max: 30 mg 12 Tab 01/03/2017 01/26/2017 pantoprazole (PROTONIX) 40 mg tablet Take 40 mg by mouth daily. 01/03/2019 phenazopyridine (PYRIDIUM) 200 mg tablet Take 1 Tab by mouth 3 times daily as needed for Pain. 9 Tab 01/03/2017 02/21/2017 rifAXImin (XIFAXAN) 550 mg tablet Take 550 mg by mouth 2 times daily 01/03/2019 documented as of this encounter Ordered Prescriptions Prescription Sig Dispense Quantity Refills Last Filled Start Date End Date oxyCODONE (ROXICODONE) 5 mg immediate release tablet Take 1 Tab by mouth every 4 hours. Daily Max: 30 mg 12 Tab 01/03/2017 01/26/2017 phenazopyridine (PYRIDIUM) 200 mg tablet Take 1 Tab by mouth 3 times daily as needed for Pain. 9 Tab 01/03/2017 02/21/2017 ciprofloxacin HCl (CIPRO) 500 mg tablet Take 1 Tab by mouth every 12 hours for 6 days. 12 Tab 01/03/2017 01/09/2017 documented in this encounter Discharge Disposition Disposition Code Departure Means Destination Home or Self Care documented in this encounter ED Notes * Fatoumata Hernandez RN - 01/03/2017 1844 EST Pt d/c ambulatory with a normal gait and in NAD. Pt d/c with all belongings]. Pt provided with instructions. Resp unlabored. Skin warm and dry. Pt AO. * Fausto Roberts MD - 01/03/2017 1636 EST I, Loraine Lemon, am scribing for Fausto Roberts MD while he/she is personally performing the service. Loraine Lemon 01/03/2017 16:36 I assumed care of patient from Dr. Meseret Gregory with CT abdomen pelvis wo contrast and disposition pending. CT revealed a nonocclusive thrombus in the splenic vein. We did get records from [facility] which had similar findings. I have reviewed her previous workup and labs done today. Suspect most likely has pyelonephritis or UTI with hematuria. Her labs here are stable. 01/03/2017 18:07 Her physician from [facility] was contacted to discuss the patient. They do not feelthat this CT finding from us a significant different from there is however, without kris-wy-bhao image comparison difficult to say for sure. However there is no evidence of involvement of the mesenteric veins or other acute, location. She will be started on Cipro and Pyridium. Follow-up with her doctors at [facility]. Return if fever, uncontrolled pain or uncontrolled vomiting. She was discharged in stable condition. This documentation is recorded by Loraine Lemon acting as Scribe under the direction and presence of Fausto Roberts MD. Fausto Roberts MD: I personally performed the services recorded by the scribe in my presence. I confirm the scribe's documentation has been reviewed by me to accurately and completely record my work,treatment, procedures, and medical decision making. * Barbara Alcala RN - 01/03/2017 1345 EST Blood drawn via saline lock per protocol, tiger and purple tube(s) sent to lab per order. * Meseret Gregory MD - 01/03/2017 1338 EST DOS: 01/03/2017 Chief Complaint Patient presents with ??? Hematuria Hx of thrombocytopenia, followed at [facility] by hematology. Also c/o of abdominal pain. NAD HPI IAlfa, am scribing for Meseret Gregory MD while he is personally performing the service. 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 Patient reports her symptoms began yesterday when she had bilateral low back pain that became focused mainly on the left and this morning was associated with dark urine, though she was not sure if there was hematuria. She has had intermittent, sharp left-sided pain that she says feels similar to previous kidney stones. She has not noted any fevers, chills, sweats, nausea, vomiting, or systemic symptoms. She has not had significant dysuria, frequency, or urgency. She reports history of urinary tract infections in the past with associated hematuria. She believes her most recent episode of this was approximately a month ago and was followed at [facility] for this. She spoke with Urology here in clinic, who recommended she presents to Emergency Department if she is having flank pain and hematuria. She arrives afebrile with grossly normal vital signs and in no acute distress. The history is provided by the patient and medical records. Review of Systems Review of Systems Constitutional: Negative for chills, diaphoresis and fever. HENT: Negative. Negative for congestion, sore throat and trouble swallowing. Eyes: Negative. Negative for visual disturbance. Respiratory: Negative. Negative for chest tightness and shortness of breath. Cardiovascular: Negative. Negative for chest pain, palpitations and leg swelling. Gastrointestinal: Negative for nausea and vomiting. Endocrine: Negative. Genitourinary: Positive for flank pain (left) and hematuria (described as dark, orange-tinted urine). Negative for dysuria, frequency and urgency. Musculoskeletal: Positive for back pain. Negative for arthralgias. Skin: Negative. Negative for rash. Allergic/Immunologic: Negative. Negative for immunocompromised state. Neurological: Positive for weakness. Negative for dizziness and headaches. Hematological: Negative. [...] Antibiotics) Rash Vital Signs Temp: 36.9 ??C (98.4 ??F) Temp src: Temporal Pulse: 94 Resp: 18 SpO2: 99 % BP: (!) 142/68 BP Device: BP Machine Physical Exam Constitutional: She is oriented to [...] affect. Nursing note and vitals reviewed. RESULTS Radiology orders: POCT US RENAL (13:53) I performed a bedside renal US. Findings include no obvious hydronephrosis. Images obtained, reviewed, and interpreted independently by myself. Please see formal report in the [facility] Images section. Images saved in PACS. ED Lab Results Labs Reviewed HEMAGRAM AND DIFFERENTIAL - Abnormal Result Value Status WBC 2.00 (*) Final PLT 58 (*) Final ABS Neutrophils 1.53 (*) Final ABS Lymphs 0.26 (*) Final RBC 4.49 Final Hemoglobin 12.6 Final HCT 38.4 Final MCV 86 Final MCH 28.1 Final MCHC 32.8 Final RDW-CV 14.5 Final RDW-SD 44.8 Final MPV 10.8 Final Neutrophils 76.5 Final Lymphocytes 13.0 Final Monocytes 8.0 Final Eosinophils 2.0 Final Basophils 0.5 Final Immature Grans 0.0 Final ABS Monocytes 0.16 Final ABS Eosinophils 0.04 Final ABS Basophils 0.01 Final ABS Immature Grans 0.00 Final Type of Diff: Automated Final COMPREHENSIVE METABOLIC PANEL (CMP) - Abnormal Sodium 148 (*) Final Potassium 4.4 Final Chloride 106 Final CO2 31 Final Total Alkaline Phosphatase 96 Final Bilirubin, Total 0.8 Final AST 20 Final ALT 29 Final Albumin 4.1 Final Total Protein 7.2 Final Creatinine 0.70 Final GFR, Calculated 97 Final BUN 11 Final Calcium 9.3 Final Calculated Calcium 9.2 Final Glucose, Serum 81 Final Fasting? Unknown Final URINALYSIS MICROSCOPIC ONLY - Abnormal Squam Epithel, UA Field Obscured (*) Final Renal Epithel, UA Field Obscured (*) Final Bacteria, UA Field Obscured (*) Final WBC, UA Field Obscured Final RBC, UA Innum Final Crystals, UA Field Obscured Final Casts, UA Field Obscured Final UA Comment Microscopic results Final Mucus, UA Field Obscured Final LIPASE Lipase 63 Final SMEAR REVIEW Smear scan only: Final Value: Slide was examined by a technologist to verify the WBC and/or platelet count. ED/URGENT CARE ADD-ON Relevant Data Procedures ED COURSE A medical screening exam was performed. 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 Patient's urinalysis had too many red blood cells to count and obscured any evaluation of white blood cell count bacteria or further microanalysis. Culture is pending. Remainder of her labs were consistent with her previous depressed white blood cell count and thrombocytopenia with no drop in her hematocrit and no other acute abnormalities. She improves with IV analgesia in the emergency department and bedside ultrasound revealed no obvious hydronephrosis. CT the abdomen and pelvis was ordered to evaluate for possible obstructing ureterolithiasis and based on her history of thromboembolism and thrombocytopenia. I felt she needed a more thorough evaluation of her flank pain. She has been signed out to Dr. Roberts to follow-up on the results of CT scan with the plan for discharge home if the CT is unremarkable on empiric antibiotics, while awaiting urine culture. If CT is positive, Urology will be consulted or other appropriate service for intervention as needed. At the time of sign out, she was afebrile, hemodynamically stable, well appearing, and appropriate for outpatient management if her CT is negative. ASSESSMENT AND PLAN Final diagnoses: None DISPOSITION: No disposition on file The patient's pain was managed to an adequate level weighing risk vs. benefit of further medications. Upon departure from the Emergency Department, the patient's pain was 1 on a zero to ten scale. Condition at departure from the Emergency Department: Improved PCP: Jayden ROLLE This documentation is recorded by Alfa Tarango acting as Scribe under the direction and presenceof Meseret Gregory MD. Meseret Gregory MD: I personally performed the services recorded by the scribe in my presence. I confirm the scribe's documentation has been reviewed by me to accurately and completely record my work,treatment, procedures, and medical decision making. 01/03/2017 13:38 No flowsheet data found. documented in this encounter Plan of Treatment Upcoming Encounters Date Type Department Care Team (Late st Contact Info) Description 01/04/2025 13:00 EST Office Visit [facility] Ophthalmology - [address] [phone] Gagandeep Rome MD [address] [facility], [address] [place] [address] 02/11/2025 13:30 EDT Telemedicine [facility] Hematology & Oncology - [address] [phone] Dana Padilla MD [address] [facility], [address] 2 [place] [id number] documented as of this encounter Procedures Procedure Name Priority Date/Time Associated Diagnosis Comments CT ABDOMEN, PELVIS W/WO CONTRAST STAT 01/03/2017 16:44 EST ED/URGENT CARE ADD-ON Routine 01/03/2017 16:40 EST BACTERIAL CULTURE, URINE Routine 01/03/2017 16:40 EST URINE SEDIMENT (MICRO) WITHOUT REFLEX TO CULTURE STAT 01/03/2017 14:44 EST POCT US RENAL STAT 01/03/2017 14:38 EST SMEAR REVIEW Routine 01/03/2017 13:20 EST COMPLETE BLOOD COUNT AND DIFFERENTIAL STAT 01/03/2017 13:20 EST LIPASE STAT 01/03/2017 13:20 EST COMPREHENSIVE METABOLIC PANEL (CMP) STAT 01/03/2017 13:20 EST documented in this encounter Results * CT ABDOMEN, PELVIS W/WO CONTRAST (01/03/2017 16:44 EST) Anatomical Region Laterality Modality Other 01/03/2017 16:4 4 EST 01/03/2017 19:58 EST Narrative 01/03/2017 19:[address] ABDOMEN, PELVIS W/WO CONTRAST ??01/03/2017 4:44 PM Signs and Symptoms/Comments: ?? hematuria and flank pain L. Technique: CT of the abdomen and pelvis was performed following the administration intravenous contrast; coronal and sagittal multiplanar reconstructions generated. As requested, prior to contrast administration, unenhanced images of abdomen and pelvis were obtained. Comparison: Multiple prior unenhanced CT abdomen/pelvis studies, the most recent performed July 17, 2015. No prior enhanced CTs Findings: Lower chest: No significant abnormalities. Hepatobiliary: Nodular contour of the liver is consistent with cirrhosis. The gallbladder is absent consistent with history of surgical resection. There is no intra or extrahepatic bladder ductal dilatation. Spleen, pancreas, adrenal glands: Pancreas, and adrenal glands are within normal limits. The spleen is considerably enlarged, 20 cm craniocaudad, no focal splenic masses aside from a small probable cyst, coronal 99. The spleen enhances normally postcontrast. Kidneys, ureters, bladder: There are no renal calculi. No perinephric fat stranding is present. The ureters are of normal caliber. There are no ureteral calculi. The urinary bladder is within normal limits. Uterus, ovaries: The uterus is absent consistent with history of surgical resection. There are no adnexal masses. Bowel: Colonic diverticulosis is greatest in the descending and sigmoid colon. There is no bowel obstruction, bowel wall thickening, or pericolic fat stranding. Peritoneal cavity / Subperitoneal space: There is no significant free intraperitoneal fluid, no fluid collection.. Lymphovascular: The portal and splenic veins are dilated consistent with portal hypertension. There is a large hypodense thrombus in the splenic vein near the midline, nonocclusive, coronal 102, axial 97. Smaller peripheral thrombus present splenic vein near portal splenic confluence, coronal 116. There is mild atherosclerotic ossification of the abdominal aorta. Abdominal wall: There are sequela of anterior abdominal wall hernia repair, with mesh noted to right of midline. Musculoskeletal: There is mild curvature of the lumbar spine to the left with the apex at L3-L4. There is disc space narrowing at L3-L4 as well as multilevel osteophytosis. Mild degenerative changes are present at the hip joints, sacroiliac joints, and symphysis pubis. Impression: 1. ??Large nonocclusive thrombus in the splenic vein near the midline, likely acute or subacute.. 2. ??Cirrhosis and evidence of portal hypertension, splenomegaly. 3. ??Cholecystectomy. 4. ??Colonic diverticulosis without evidence of diverticulitis. 5. ??Hysterectomy. 6. ??Atherosclerosis. 7. ??Anterior abdominal wall hernia repair. 8. ??Multilevel degenerative disease of the spine as described above. The findings were discussed by Moi Cortes MD with MESERET GREGORY MD on 01/03/2017 5:13 PM. I have personally reviewed the images and the above interpretation and agree with the findings. Procedure Note Scottie Xavier MD - 01/03/2017 CT ABDOMEN, PELVIS W/WO CONTRAST 01/03/2017 4:44 PM Signs and Symptoms/Comments: hematuria and flank pain L. Technique: CT of the abdomen and pelvis was performed following the administration intravenous contrast; coronal and sagittal multiplanar reconstructions generated. As requested, prior to contrast administration, unenhanced images of abdomen and pelvis were obtained. Comparison: Multiple prior unenhanced CT abdomen/pelvis studies, the most recent performed July 17, 2015. No prior enhanced CTs Findings: Lower chest: No significant abnormalities. Hepatobiliary: Nodular contour of the liver is consistent with cirrhosis. The gallbladder is absent consistent with history of surgical resection. There is no intra or extrahepatic bladder ductal dilatation. Spleen, pancreas, adrenal glands: Pancreas, and adrenal glands are within normal limits. The spleen is considerably enlarged, 20 cm craniocaudad, no focal splenic masses aside from a small probable cyst, coronal 99. The spleen enhances normally postcontrast. Kidneys, ureters, bladder: There are no renal calculi. No perinephric fat stranding is present. The ureters are of normal caliber. There are no ureteral calculi. The urinary bladder is within normal limits. Uterus, ovaries: The uterus is absent consistent with history of surgical resection. There are no adnexal masses. Bowel: Colonic diverticulosis is greatest in the descending and sigmoid colon. There is no bowel obstruction, bowel wall thickening, or pericolic fat stranding. Peritoneal cavity / Subperitoneal space: There is no significant free intraperitoneal fluid, no fluid collection.. Lymphovascular: The portal and splenic veins are dilated consistent with portal hypertension. There is a large hypodense thrombus in the splenic vein near the midline, nonocclusive, coronal 102, axial 97. Smaller peripheral thrombus present splenic vein near portal splenic confluence, coronal 116. There is mild atherosclerotic ossification of the abdominal aorta. Abdominal wall: There are sequela of anterior abdominal wall hernia repair, with mesh noted to right of midline. Musculoskeletal: There is mild curvature of the lumbar spine to the left with the apex at L3-L4. There is disc space narrowing at L3-L4 as well as multilevel osteophytosis. Mild degenerative changes are present at the hip joints, sacroiliac joints, and symphysis pubis. Impression: 1. Large nonocclusive thrombus in the splenic vein near the midline, likely acute or subacute.. 2. Cirrhosis and evidence of portal hypertension, splenomegaly. 3. Cholecystectomy. 4. Colonic diverticulosis without evidence of diverticulitis. 5. Hysterectomy. 6. Atherosclerosis. 7. Anterior abdominal wall hernia repair. 8. Multilevel degenerative disease of the spine as described above. The findings were discussed by Moi Cortes MD with MESERET GREGORY MD on 01/03/2017 5:13 PM. I have personally reviewed the images and the above interpretation and agree with the findings. us Meseret Gregory MD [facility] IMG CT ORDERABLES Final R esult * BACTERIAL CULTURE, URINE (01/03/2017 16:40 EST) Result 10,000 to 100,000 CFU/ml Usual urogenital tiffanie. 01/04/2017 8:00 EST [facility] URINE / Unknown 01/03/2017 1 6:40 EST 01/03/2017 16:49 EST us Fausto Roberts MD MICROBIOLOGY - GENERAL ORDER YANN Final Result [facility] [address] [place] [address] * ED/URGENT CARE ADD-ON (01/03/2017 16:40 EST) Tests to be added URINE CULTURE 01/03/2017 16:36 [facility] Number for problems [id number] (ED) 01/03/2017 16:36 [facility] TOPOGRAPHY UNKNOWN / Unknown 01/03/2017 16:40 EST 01/03/2017 16:48 EST us Fausto Roberts MD HEMATOLOGY & PF4 ORDERABLES Final Result [facility] [address] [place] [address] * (ABNORMAL) URINALYSIS MICROSCOPIC ONLY (01/03/2017 14:44 EST) WBC, UA Field Obscured 0 - 5 /HPF 01/03/2017 15:38 [facility] Comment:by RBCs RBC, UA Innum 0 - 5 /HPF 01/03/2017 15:38 [facility] Squam Epithel, UA Field Obscured(A) None seen /HPF 01/03/2017 15:38 [facility] Comment:by RBCs Renal Epithel, UA Field Obscured(A) None seen /HPF 01/03/2017 15:38 [facility] Comment:by RBCs Bacteria, UA Field Obscured(A) None seen /HPF 01/03/2017 15:38 [facility] Comment:by RBCs Crystals, UA Field Obscured /HPF 01/03/20 17 15:38 [facility] Comment:by RBCs Hyaline Casts, UA Field Obscured /LPF 01/03/2017 15:38 [facility] Comment:by RBCs UA Comment Microscopic results 01/03/2017 13:15 [facility] Comment: are unreliable on urines unrefrig >2hrs or refrig >8hrs. Mucus, UA Field Obscured 01/03/2017 15:38 [facility] Comment:by RBCs Urine specimen (specimen) URINE / Unknown 01/03/2017 14:44 EST 01/03/2017 14:50 EST us Meseret Gregory MD [facility] URINALYSIS ORDERABLES Fin al Result [facility] [address] [place] [address] * POCT US RENAL (01/03/2017 14:38 EST) Anatomical Region Laterality Modality Other 01/03/2017 14:3 8 EST 01/03/2017 17:17 EST Narrative 01/03/2017 17:17 EST [facility] Ultrasound Exam Date: 01/03/2017 Exam Type: POCT US RENAL Boot Repairer: Meseret Gregory MD Attending: N/A Worksheet: POCUS_Renal Exam Information: ?? A focused (limited) ultrasound of the kidneys was performed to evaluate for hydronephrosis and nephrolithiasis. ?? Exam type: Clinically indicated Indication(s) for Exam: ?? The exam was performed with the following indications: Flank pain ?? Other Indication(s): Left flank pain Findings: ?? Hydronephrosis of the LEFT kidney: None ?? Hydronephrosis of the RIGHT kidney: None ?? Ureteral calculi on the RIGHT: Absent ?? Ureteral caculi on the LEFT: Absent Interpretation: ?? Normal limited renal ultrasound, no evidence of hydronephrosis or calculi ?? Other: slightly abdnormal echotexture of L kidney no hydronephrosis seen Views Obtained ?? The following structures were examined in two orthogonal planes from a transabdominal approach: ALL OF THE VIEWS ABOVE WERE OBTAINED Confirmatory study: ?? What confirmatory study was done?: CT ?? Confirmatory study findings: Splenic vein thrombosis Physician Signature: ?? I review and approve of the documentation above.: Signed by Meseret Gregory MD on Tuesday, January 03, 2017 at 5:17:38 PM This exam was performed and interpreted by the Emergency Department Staff Procedure Note Meseret Gregory MD - 01/03/2017 [facility] - Ultrasound Exam Date: 01/03/2017 Exam Type: POCT US RENAL Boot Repairer: Meseret Gregory MD Attending: N/A Worksheet: POCUS_Renal Exam Information: A focused (limited) ultrasound of the kidneys was performed to evaluate for hydronephrosis and nephrolithiasis. Exam type: Clinically indicated Indication(s) for Exam: The exam was performed with the following indications: Flank pain Other Indication(s): Left flank pain Findings: Hydronephrosis of the LEFT kidney: None Hydronephrosis of the RIGHT kidney: None Ureteral calculi on the RIGHT: Absent Ureteral caculi on the LEFT: Absent Interpretation: Normal limited renal ultrasound, no evidence of hydronephrosis or calculi Other: slightly abdnormal echotexture of L kidney no hydronephrosis seen Views Obtained The following structures were examined in two orthogonal planes from a transabdominal approach: ALL OF THE VIEWS ABOVE WERE OBTAINED Confirmatory study: What confirmatory study was done?: CT Confirmatory study findings: Splenic vein thrombosis Physician Signature: I review and approve of the documentation above.: Signed by Meseret Gregory MD on Tuesday, January 03, 2017 at 5:17:38 PM This exam was performed and interpreted by the Emergency Department Staff us Meseret Gregory MD, RDMS IMG POCT US ORDERABLES Fi nal Result * SMEAR REVIEW (01/03/2017 13:20 EST) Pathologist [facility] Emergency Department Smear scan only: Slide was examined by a technologist to verify the WBC and/or platelet count. 01/03/2017 14:26 EST [facility] TOPOGRAPHY UNKNOWN / Unknown 01/03/2017 13:20 EST 01/03/2017 13:45 EST us Meseret Gregory MD, RDMS HEMATOLOGY & PF4 ORDERABL ES Final Result Performing Organization Address City/[facility]/ZIP Co de Phone Number [facility] [address] [place] [phone] * LIPASE (01/03/2017 13:20 EST) Pathologist [facility] Emergency Department Lipase 63 <251 U/L 01/03/2017 14:03 EST [facility] Blood specimen (specimen) BLOOD SPECIMEN / Unknown 01/03/2017 13:20 EST 01/03/2017 13:45 EST us Meseret Gregory MD, RDMS CHEMISTRY & BLOOD GAS ORD ERABLES Final Result [facility] [address] [place] [address] * (ABNORMAL) COMPREHENSIVE METABOLIC PANEL (CMP) (01/03/2017 13:20 [facility]) Potassium 4.4 3.5 - 5.0 mEq/L 01/03/2017 14:03 [facility] Sodium 148(H) 136 - 145 mEq/L 01/03/2017 14:03 [facility] Chloride 106 96 - 110 mEq/L 01/03/2017 14:03 [facility] CO2 31 22 - 32 mEq/L 01/03/2017 14:03 [facility] Comment:Note new reference keo negron 09/07/16 Total Alkaline Phosphatase 96 38 - 126 U/L 01/03/2017 14:03 [facility] Bilirubin, Total 0.8 <1.4 mg/dl 01/03/20 17 14:03 [facility] AST 20 15 - 46 U/L 01/03/2017 14:03 [facility] ALT 29 <53 U/L 01/03/2017 14:03 [facility] Albumin 4.1 3.4 - 4.9 g/dl 01/03/2017 14:03 [facility] Total Protein 7.2 6.3 - 8.2 g/dl 01/03/2017 14:03 [facility] Creatinine 0.70 0.52 - 1.04 mg/dl 01/03/2017 14:03 [facility] GFR, Calculated 97 >60 ml/min/1.7 3m2 01/03/2017 14:03 [facility] Comment: eGFR calculated using CKD-EPI equation for non Americans. Multiply eGFR by 1.16 for Americans. BUN 11 10 - 26 mg/dl 01/03/2017 14:03 [facility] Calcium 9.3 8.5 - 10.5 mg/dl 01/03/2017 14:03 [facility] Calculated Calcium 9.2 8.5 - 10.5 mg/dl 01/03/2017 14:03 [facility] Comment: Note new formula for calculation in use 08/25/2016 Glucose, Serum 81 70 - 100 mg/dl 01/03/2017 14:03 [facility] Fasting? Unknown 01/03/2017 13:45 [facility] Blood specimen (specimen) BLOOD SPECIMEN / Unknown 01/03/2017 13:20 EST 01/03/2017 13:45 EST Meseret Gregory MD [facility] CHEMISTRY & BLOOD GAS ORD ERABLES Final Result [facility] [address] [place] [address] * (ABNORMAL) HEMAGRAM AND DIFFERENTIAL (01/03/2017 13:20 EST) WBC 2.00(L) 4.0 - 12.4 K/cmm 01/03/2017 14:25 [facility] RBC 4.49 3.86 - 5.04 M/cmm 01/03/2017 14:03 [facility] Hemoglobin 12.6 11.6 - 15.2 gm/dl 01/03/2017 14:03 [facility] HCT 38.4 34.9 - 44.4 % 01/03/2017 14:03 [facility] MCV 86 81 - 98 fl 01/03/2017 14:03 [facility] MCH 28.1 26.7 - 33.3 pg 01/03/2017 14:03 [facility] MCHC 32.8 32.1 - 35.9 gm/dl 01/03/2017 14:03 [facility] RDW-CV 14.5 11.7 - 14.6 % 01/03/2017 14:03 [facility] RDW-SD 44.8 37.6 - 50.3 fl 01/03/2017 14:03 [facility] PLT 58(L) 141 - 377 K/cmm 01/03/2017 14:25 [facility] MPV 10.8 9.5 - 12.7 fl 01/03/2017 14:25 [facility] % Neutrophils 76.5 % 01/03/2017 14:26 [facility] % Lymphocytes 13.0 % 01/03/2017 14:26 [facility] % Monocytes 8.0 % 01/03/2017 14:26 [facility] % Eosinophils 2.0 % 01/03/2017 14:26 [facility] % Basophils 0.5 % 01/03/2017 14:26 [facility] % Immature Grans 0.0 % 01/03/2017 14:26 [facility] ABS Neutrophils 1.53(L) 2.20 - 8.85 K/cmm 01/03/2017 14:26 [facility] ABS Lymphs 0.26(L) 1.09 - 3.30 K/cmm 01/03/2017 14:26 [facility] ABS Monocytes 0.16 0.1 - 0.8 K/cmm 01/03/2017 14:26 [facility] ABS Eosinophils 0.04 0.03 - 0.61 K/cmm 01/03/2017 14:26 [facility] ABS Basophils 0.01 0.01 - 0.11 K/cmm 01/03/2017 14:26 [facility] ABS Immature Grans 0.00 0 - 0.06 K/cmm 01/03/2017 14:26 [facility] Type of Diff: Automated 01/03/2017 14:26 [facility] Blood specimen (specimen) BLOOD SPECIMEN / Unknown 01/03/2017 13:20 EST 01/03/2017 13:45 EST us Meseret Gregory MD RDMS PACKAGES & DNA PROBE ORDE THERESA Final Result [facility] [address] [place] [address] documented in this encounter Visit Diagnoses Diagnosis Pyelonephritis- Primary Pyelonephritis, unspecified Hematuria Hematuria, unspecified documented in this encounter Administered Medications Inactive Administered Medications - up to 3 most recent administrations Medication Order MAR Action Action Date Dose Rate Site Ciprofloxacin 500 mg Tab STARTER PACK 1 Package, oral, NOW X1, 1 dose, On Tue01/03/17 at 1845, STAT Given 01/03/2017 18:43 EST 1 Package fentaNYL citrate (PF) 50 mcg/mL injection 50 mcg 50 mcg, intravenous, NOW X1, 1 dose, On Tue01/03/17 at 1400, STAT Given 01/03/2017 13:59 EST 50 mcg HYDROmorphone (DILAUDID) injection 0.2 mg 0.2 mg, intravenous, NOW X1, 1 dose, On Tue01/03/17 at 1515, STAT Given 01/03/2017 15:24 EST 0.2 mg HYDROmorphone (DILAUDID) injection 0.5 mg 0.5 mg, intravenous, NOW X1, 1 dose, On 01/03/17 at 1700, STAT Given 01/03/2017 16:58 EST 0.5 mg lactated ringers BOLUS 1,000 mL 1,000 mL, intravenous, NOW X1, 1 dose, On Tue01/03/17 at 1345, STAT New Bag 01/03/2017 13:49 EST 1,000 mL ondansetron (PF) (ZOFRAN) injection 4 mg 4 mg, intravenous, NOW X1, 1 dose, On 01/03/17 at 1345, STAT Given 01/03/2017 13:59 EST 4 mg ondansetron (PF) (ZOFRAN) injection 4 mg 4 mg, intravenous, NOW X1, 1 dose, On Tue01/03/17 at 1700, STAT Given 01/03/2017 16:58 EST 4 mg ondansetron (PF) (ZOFRAN) injection 4 mg 4 mg, intravenous, NOW X1, 1 dose, On Tue01/03/17 at 1830, STAT Given 01/03/2017 18:43 EST 4 mg Phenazopyridine 200 mg Tab STARTER PACK 1 Package, oral, NOW X1, 1 dose, On Tue01/03/17 at 1845, STAT Given 01/03/2017 18:43 EST 1 Package documented in this encounter Discontinued Medications Medication Sig Discontinue Reason Start Date End Da te oxyCODONE (ROXICODONE) 5 mg immediate release tablet Take 1 Tab by mouth every 6 hours as needed for Pain. Daily Max: 20 mg 05/04/2016 01/03/2017 documented as of this encounter Active and Recently Administered Medications Times are shown in EST. Scheduled Medication Order 01/01/2017 01/02/2017 01/03/2017 Ciprofloxacin 500 mg Tab STARTER PACK (COMPLETED) 1 Package, oral, NOW X1, 1 dose, On Tue01/03/17 at 1845, STAT 1843 (Given - Provid er: Fatoumata Hernandez RN) fentaNYL citrate (PF) 50 mcg/mL injection 50 mcg (COMPLETED) 50 mcg, intravenous, NOW X1, 1 dose, On Tue01/03/17 at 1400, STAT 1359 (Given - Provid er: Prashanth Razo RN) HYDROmorphone (DILAUDID) injection 0.2 mg (COMPLETED) 0.2 mg, intravenous, NOW X1, 1 dose, On Tue01/03/17 at 1515, STAT 1524 (Given - Provid er: Fatoumata Hernandez RN) HYDROmorphone (DILAUDID) injection 0.5 mg (COMPLETED) 0.5 mg, intravenous, NOW X1, 1 dose, On Tue01/03/17 at 1700, STAT 1658 (Given - Provid er: Fatoumata Hernandez RN) lactated ringers BOLUS 1,000 mL (COMPLETED) 1,000 mL, intravenous, NOW X1, 1 dose, On Tue01/03/17 at 1345, STAT 1349 (New Bag - Prov ider: Prashanth Razo RN) ondansetron (PF) (ZOFRAN) injection 4 mg (COMPLETED) 4 mg, intravenous, NOW X1, 1 dose, On Tue01/03/17 at 1345, STAT 1359 (Given - Provid er: Prashanth Razo RN) ondansetron (PF) (ZOFRAN) injection 4 mg (COMPLETED) 4 mg, intravenous, NOW X1, 1 dose, On Tue01/03/17 at 1700, STAT 1658 (Given - Provid er: Fatoumata Hernandez RN) ondansetron (PF) (ZOFRAN) injection 4 mg (COMPLETED) 4 mg, intravenous, NOW X1, 1 dose, On Tue01/03/17 at 1830, STAT 1843 (Given - Provid er: Fatoumata Hernandez RN) Phenazopyridine 200 mg Tab STARTER PACK (COMPLETED) 1 Package, oral, NOW X1, 1 dose, On Tue01/03/17 at 1845, STAT 1843 (Given - Provid er: Fatoumata Hernandez RN) documented in this encounter Orders Nursing Count Last Ordered Date First Orde red Date INSERT PERIPHERAL IV 1 01/03/2017 documented in this encounter Care Teams [employer] Faculty Member Relationship Specialty Start Date End Date None, Provider PCP - General 01/03/17 02/23/17 documented as of this encounter
--- OUTSIDE RECORDS SUMMARY | 2024-11-22 17:30 | XMS_ITS | Encounter Summary ---
Author Organization [facility] Address [address] [place] [address] Care Team Providers Care Day Spa Manager Name Role Phone Jayden Tijerina MD Primary Care Provider [phone] Encounter Details Date Type Department Care Team (Late st Contact Info) Description 12/16/2015 Results Only [facility] Urology - [facility] [address] [place] [address] Jordan Dickens MD [address] [facility] [place] [address] Social History Tobacco Use Types [...] Rivera Tolbert RN documented in this encounter Plan of Treatment Upcoming Encounters Date Type Department Care Team (Late st Contact Info) Description 01/04/2025 13:00 EST Office Visit [facility] Ophthalmology [address] [id number] Gagandeep Rome MD [address] [place] [address] [address] [place] [phone] 02/11/2025 13:30 EDT Telemedicine [facility] Hematology & Oncology [address] [id number] Dana Padilla MD [address] [place] [address], [facility] [address] [place] [address] documented as of this encounter Procedures Procedure Name Priority Date/Time Associated Diagnosis Comments URINE MICROSCOPIC Routine 12/16/2015 9:59 EST documented in this encounter Results * (ABNORMAL) URINE MICROSCOPIC (12/16/2015 9:59 EST) WBC, UA >50 0 - 5 /HPF 12/16/2015 10:43 [facility] RBC, UA 10 to 50 0 - 5 /HPF 12/16/2015 10:43 [facility] Squam Epithel, UA Few(A) None seen /HPF 12/16/2015 10:43 [facility] Renal Epithel, UA None seen None seen /HPF 12/16/2015 10:43 [facility] Bacteria, UA None seen None seen /HPF 12/16/2015 10:43 [facility] Crystals, UA None seen /HPF 12/16/2015 10:43 [facility] Hyaline Casts, UA None seen /LPF 12/16/2015 10:43 [facility] UA Comment Microscopic results 12/16/2015 10:43 [facility] Comment: are unreliable on urines unrefrig >2hrs or refrig >8hrs. Mucus, UA Present 12/16/2015 10:43 [facility] Additional Findings Frequent WBC clumps 12/16/2015 10:43 [facility] URINE / Unknown 12/16/2015 9 :59 EST 12/16/2015 10:19 EST us Jordan Dickens MD URINALYSIS ORDERABLES Fin al Result [facility] [address] [place] [address] documented in this encounter Visit Diagnoses Not on filedocumented in this encounter Care Teams Day Spa Manager Relationship Specialty Start Date End Date Jayden Tijerina MD PCP - General 07/31/15 01/02/17 documented as of this encounter
--- OUTSIDE RECORDS SUMMARY | 2024-11-22 17:30 | XMS_ITS | Encounter Summary ---
Author Organization [facility] Address [address] [place] [address] Care Team Providers Care Mental Health Consultant Name Role Phone None, Provider Primary Care Provider Unavailabl e Reason for Visit * Reason Comments Abdominal Pain pt to ed c/o upper a bdominal pain, notes vomiting and hematuria. states I have blood clots in my abdomen. pt c/o flank pain today, ? syncope while standing to be registered, found pt awake and alet on floor no injuries. Encounter Details Date Type Department Care Team (Late st Contact Info) Description 01/25/2017 18:38 EST - 01/26/2017 1:23 EST Emergency [facility] Emergency Department - [address] [address] Scottie Camarena MD [address] [place] [phone] Alethea Alexis MD MPH [address] [place] [phone] EmergencyRolando MD Upper abdominal pain (Primary Dx) Discharge Disposition: Home [...] Sign Reading Time Taken Comments Blood Pressure 127/81 01/26/2017 0120 EST Pulse 86 01/26/2017 0120 EST Temperature 37.4 ??C (99.3 ??F) 01/25/2017 1845 EST Respiratory Rate 16 01/26/2017 0120 EST Oxygen Saturation 100% 01/26/2017 0120 EST Inhaled Oxygen Concentration - - Weight 85.7 kg (189 lb) 01/25/2017 1845 EST Height 165.1 cm (5' 5) 01/25/2017 1845 EST Body Mass Index 31.45 01/25/2017 1845 EST documented in this encounter Functional Status [...] documented in this encounter Discharge Diagnoses Diagnosis R10.13 Epigastric pain-R10.13[ICD-10-CM] R10.12 Left upper quadrant pain-R10.12[ICD-10-CM] J45.909 Unspecified asthma, uncomplicated-J45.909[ICD-10-CM] Z88.6 Allergy status to analgesic agent status-Z88.6[ICD-10-CM] Z88.5 Allergy status to narcotic agent status-Z88.5[ICD-10-CM] Z88.2 Allergy status to sulfonamides status-Z88.2[ICD-10-CM] F17.200 Nicotine dependence, unspecified, uncomplicated-F17.200[ICD-10-CM] documented in this encounter Discharge Instructions * Discharge Instructions* Scottie Camarena MD - 01/26/2017 1:01 EST Continue current medications as prescribed. Take the ondansetron 4 mg every 8 hours as needed for nausea. You may use the oxycodone 5 mg every 6-8 hours as needed for pain. Call [facility] at [phone] or [facility] [phone] to arrangefor an initial appointment to establish care. A list of physicians in these practices who are accepting new patients has been provided. Follow-up as scheduled later this month with Dr. Smith at [facility]. Call sooner or return to this emergency [...] hours as needed for Nausea. 12 Tab 01/26/2017 7 oxyCODONE (ROXICODONE) 5 mg immediate release tablet Take 1 Tab by mouth every 6 hours as needed for Pain. Daily Max: 20 mg 10 Tab 01/26/2017 7 pantoprazole (PROTONIX) 40 mg tablet Take [...] for Pain. Daily Max: 20 mg 10 Tab 01/26/2017 7 ondansetron (ZOFRAN-ODT) 4 mg disintegrating tablet Take 1 Tab by mouth every 8 hours as needed for Nausea. 12 Tab 01/26/2017 7 documented in this encounter Discharge Disposition Disposition Code Departure Means Destination Comment s Home or Self Care Car Home Pt verbalized an understanding of physician's discharge instructions, prescriptions and the need for follow up. Pt has no questions at this time. Pt ambulatory out of the department without difficulty. documented in this encounter ED Notes * Ember Chew - 01/26/2017 0016 EST Pt would like more nausea medication, and is now reporting burning pain upon urination * Ember Chew - 01/25/20172102 EST Blood drawn via saline lock per protocol, tiger and purple tube(s) sent to lab per order. * Scottie Camarena MD - 01/25/20172008 EST DOS: 01/25/2017 Chief Complaint Patient presents with ??? Abdominal Pain pt to ed c/o upper abdominal pain, notes vomiting and hematuria. states I have blood clots in my abdomen. pt c/o flank pain today, ? syncope while standing to be registered, found pt awake and aleton floor no injuries. HPI HPI Comments: I, Praveen Mcdonald, am scribing for Scottie Camarena MD while he/she is personally performing the service. [place] Tamara 01/25/2017 20:09 Tara Yun is a 56 y.o. female with a history of fatty liver disease and splenic vein thrombosis who presents to the ED with upper abdominal pain which radiates to her left and right flank sinceyesterday morning. Patient endorses hematuria, fatigue, increased amount of sleep, nausea and painful urination. Patient denies vomiting or change in bowel movements. Patient explains that she cannot be put on blood thinners because her platelet counts are around 40and because of her splenomegaly. Patient [place]. The history is provided by the patient. Abdominal Pain Associated symptoms: dysuria, fatigue, hematuria and nausea Associated symptoms: no vomiting Review of Systems Review of Systems Constitutional: Positive for activity change (increased sleep) and fatigue. Gastrointestinal: Positive for abdominal pain (upper abdominal radiating into the back) and nausea.Negative for vomiting. No changes in bowel movement Genitourinary: Positive for dysuria and hematuria. All other systems reviewed and are negative. [...] Rash Vital Signs Vitals Reassessment?: Yes Temp: 37.4 ??C (99.3 ??F) Temp src: Temporal Pulse: 86 Heart Rate: 75 BPM Resp: 16 SpO2: 100 % BP: 127/81 BP MAP: 90 mm Hg Physical Exam Constitutional: She appears well-developed and well-nourished. HENT: Head: Normocephalic and atraumatic. Right Ear: External ear normal. Left Ear: External ear normal. Nose: Nose normal. Mouth/Throat: Oropharynx is clear and moist. Eyes: EOM are normal. Pupils are equal, round, and reactive to light. Right eye exhibits no discharge. Left eye exhibits no discharge. No scleral icterus. Neck: Normal range of motion. Neck supple. No tracheal deviation present. Cardiovascular: Normal rate, regular rhythm and normal heart sounds. No murmur heard. Pulmonary/Chest: Effort normal and breath sounds normal. No respiratory distress. Abdominal: Soft. She exhibits no distension. There is tenderness in the epigastric area and left upper quadrant. There is CVA tenderness (left side). non tender in lower quadrants Musculoskeletal: Normal range of motion. Right lower leg: She exhibits no tenderness and no edema. Left lower leg: She exhibits no tenderness and no edema. Neurological: She is alert. She has normal strength. No sensory deficit. Skin: No rash noted. Psychiatric: She has a normal mood and affect. Nursing note and vitals reviewed. RESULTS EKG orders: None Radiology orders: CT RENAL COLIC ED Lab Results Labs Reviewed HEMAGRAM AND DIFFERENTIAL - Abnormal Result Value Status WBC 1.43 (*) Final PLT 60 (*) Final ABS Neutrophils 0.94 (*) Final ABS Lymphs 0.40 (*) Final ABS Monocytes 0.09 (*) Final RBC 4.24 Final Hemoglobin 12.0 Final HCT 36.1 Final MCV 85 Final MCH 28.3 Final MCHC 33.2 Final RDW-CV 14.6 Final RDW-SD 46.0 Final MPV 10.7 Final Neutrophils 66.0 Final Lymphocytes 28.0 Final Monocytes 6.0 Final Type of Diff: Manual Final URINALYSIS MICROSCOPIC ONLY - Abnormal Squam Epithel, UA Many (*) Final Bacteria, UA Rare (*) Final WBC, UA 5 to 10 Final RBC, UA >50 Final Renal Epithel, UA None seen Final Crystals, UA None seen Final Casts, UA None seen Final UA Comment Microscopic results Final BACTERIAL CULTURE, URINE COMPREHENSIVE METABOLIC PANEL (CMP) Potassium 3.8 Final Sodium 142 Final Chloride 106 Final CO2 31 Final Total Alkaline Phosphatase 117 Final Bilirubin, Total <0.5 Final AST 18 Final ALT 26 Final Albumin 3.9 Final Total Protein 6.9 Final Creatinine 0.89 Final GFR, Calculated 73 Final BUN 15 Final Calcium 9.3 Final Calculated Calcium 9.4 Final Glucose, Serum 77 Final Fasting? Unknown Final LIPASE Lipase 195 Final Relevant Data Procedures ED COURSE A medical screening exam was performed. 20:30 - Patient was treated with 1 mg IV Dilaudid, 4 mg IV Zofran and 1000 ml IV fluid. Patient had labs that were reviewed independently by myself, significant for WBC at 1.43, plat 60,000 (both at baseline). 22:14 -Patient reports that the Dilaudid helped bring her pain level to a 6 but now its back up to an 8. Patient will be given another dose of Dilaudid. 22:30 - Patient was treated with 1 mg IV Dilaudid. 22:42 - Patient feels weak, nauseous, and has pain in her left lower back. I discussed the need fora Renal CT scan. CT without stone, but does show inflammatory changes around duodenum. Pt. Already on PPI. ASSESSMENT AND PLAN Final diagnoses: Upper abdominal pain DISPOSITION: Discharged The patient's pain was managed to an adequate level weighing risk vs. benefit of further medications. Upon departure from the Emergency Department, the patient's pain was 6 on a zero to ten scale. Condition at departure from the Emergency Department: Stable PCP: Provider None MDM Number of Diagnoses or Management Options Upper abdominal pain: Diagnosis management comments: 5 Amount and/or Complexity of Data Reviewed Clinical lab tests: ordered and reviewed Tests in the radiology section of CPT??: ordered and reviewed Decide to obtain previous medical records or to obtain history from someone other than the patient:yes ([facility]) Review and summarize past medical records: yes Independent visualization of images, tracings, or specimens: yes This documentation is recorded by Praveen Mcdonald acting as Scribe under the direction and presenceof Scottie Camarena MD. Scottie Camarena MD: I personally performed the services recorded by the scribe in my presence. I confirm the scribe's documentation has been reviewed by me to accurately and completely record my work, treatment, procedures, and medical decision making. 01/26/2017 16:05 No flowsheet data found. documented in this encounter Plan of Treatment Upcoming Encounters Date Type Department Care Team (Late st Contact Info) Description 01/04/2025 13:00 EST Office Visit [facility] Ophthalmology - [address] [phone] Gagandeep Rome MD [address] [facility], [address] [place] [phone] 02/11/2025 13:30 EDT Telemedicine [facility] Hematology & Oncology - [address] [id number] Dana Padilla MD [address] [facility], [facility] [address] [place] [phone] documented as of this encounter Procedures Procedure Name Priority Date/Time Associated Diagnosis Comments CT RENAL COLIC WO CONTRAST STAT 01/25/2017 22:58 EST URINE SEDIMENT (MICRO) WITHOUT REFLEX TO CULTURE STAT 01/25/2017 20:46 EST BACTERIAL CULTURE, URINE STAT 01/25/2017 20:46 EST COMPLETE BLOOD COUNT AND DIFFERENTIAL STAT 01/25/2017 20:45 EST LIPASE STAT 01/25/2017 20:45 EST COMPREHENSIVE METABOLIC PANEL (CMP) STAT 01/25/2017 20:45 EST documented in this encounter Results * CT RENAL COLIC (01/25/2017 22:58 EST) Anatomical Region Laterality Modality Other 01/25/2017 22:5 8 EST 01/26/2017 9:29 EST Narrative 01/26/2017 9:[address] RENAL COLIC ??01/25/2017 10:58 PM Signs and Symptoms/Comments: ?? Left flank pain Technique: Axial CT images obtained from abdomen immediately superior to level of kidneys through the pelvis without administration of contrast of any kind. Sagittal and coronal reformats generated. Comparison: July 17, 2015, July 12, 2015. Findings: Kidneys and ureters: The kidneys are symmetric without evidence of hydronephrosis. The ureters are normal in course and caliber. No urinary tract calculi identified. Bladder: The bladder is well distended without focal lesions. Uterus, adnexa: The patient is status post hysterectomy. No adnexal masses identified. Included lung bases: Unremarkable Unenhanced liver and spleen, as far as included: The liver is cirrhotic. The spleen is enlarged. Gallbladder, pancreas adrenal glands: The gallbladder has been removed. The pancreas is normal. The adrenal glands are unremarkable. Bowel: There is no evidence of bowel obstruction or wall thickening. There is diverticulosis without evidence of diverticulitis. The appendix has been removed. Peritoneal cavity: There is no free fluid or free air. There is mild fat stranding adjacent to the 2nd portion of the duodenum and pancreatic head. There is mild stranding of the peritoneum in the abdomen, not significantly changed since the last study Abdominal wall: Prior ventral hernia repair is noted. Benign soft tissue calcifications in the regions of the buttocks. Lymphovascular: The aorta is normal in course and caliber with mild atherosclerotic disease. Cannot assess the clot in the splenic vein. Splenic vein and portal vein are massively enlarged but stable. Multiple varices in the upper abdomen. Musculoskeletal: Multilevel degenerative changes are present in the lumbar spine. A calcified granuloma is seen in the right gluteal region. Impression: 1. No evidence of urinary tract calculus. 2. Nonspecific fat stranding surrounding 2nd portion of the duodenum and head of the pancreas. The lack of IV and oral contrast makes more difficult the differentiation. Given the normal lipase, these could represent duodenitis. 3. Stable splenomegaly. Cirrhosis and portal hypertension. 4. Known thrombus in the splenic vein, not evaluated on this noncontrast study I have personally reviewed the images and the above interpretation and agree with the findings. Procedure Note Eguenia Lopez MD - 01/26/2017 CT RENAL COLIC 01/25/2017 10:58 PM Signs and Symptoms/Comments: Left flank pain Technique: Axial CT images obtained from abdomen immediately superior to level of kidneys through the pelvis without administration of contrast of any kind. Sagittal and coronal reformats generated. Comparison: July 17, 2015, July 12, 2015. Findings: Kidneys and ureters: The kidneys are symmetric without evidence of hydronephrosis. The ureters are normal in course and caliber. No urinary tract calculi identified. Bladder: The bladder is well distended without focal lesions. Uterus, adnexa: The patient is status post hysterectomy. No adnexal masses identified. Included lung bases: Unremarkable Unenhanced liver and spleen, as far as included: The liver is cirrhotic. The spleen is enlarged. Gallbladder, pancreas adrenal glands: The gallbladder has been removed. The pancreas is normal. The adrenal glands are unremarkable. Bowel: There is no evidence of bowel obstruction or wall thickening. There is diverticulosis without evidence of diverticulitis. The appendix has been removed. Peritoneal cavity: There is no free fluid or free air. There is mild fat stranding adjacent to the 2nd portion of the duodenum and pancreatic head. There is mild stranding of the peritoneum in the abdomen, not significantly changed since the last study Abdominal wall: Prior ventral hernia repair is noted. Benign soft tissue calcifications in the regions of the buttocks. Lymphovascular: The aorta is normal in course and caliber with mild atherosclerotic disease. Cannot assess the clot in the splenic vein. Splenic vein and portal vein are massively enlarged but stable. Multiple varices in the upper abdomen. Musculoskeletal: Multilevel degenerative changes are present in the lumbar spine. A calcified granuloma is seen in the right gluteal region. Impression: 1. No evidence of urinary tract calculus. 2. Nonspecific fat stranding surrounding 2nd portion of the duodenum and head of the pancreas. The lack of IV and oral contrast makes more difficult the differentiation. Given the normal lipase, these could represent duodenitis. 3. Stable splenomegaly. Cirrhosis and portal hypertension. 4. Known thrombus in the splenic vein, not evaluated on this noncontrast study I have personally reviewed the images and the above interpretation and agree with the findings. us Scottie Camarena MD IM CT ORDERABLES Final Res ult * BACTERIAL CULTURE, URINE (01/25/2017 20:46 EST) Result 10,000 to 100,000 CFU/ml STREPTOCOCCUS, BETA HEMOLYTIC GROUP B (STREPTOCOCCUS AGALACTIAE) Penicillin and ampicillin are drugs of choice for treatment of beta hemolytic streptococcal infections. 01/26/2017 14:57 EST [facility] Result Less than 10,000 CFU/ml Usual urogenital tiffanie. 01/26/2017 14:57 [facility] Urine specimen (specimen) URINE / Unknown 01/25/2017 20:46 EST 01/25/2017 21:02 EST Scottie Camarena MD MICROBIOLOGY - GENERAL ORDE [facility] Final Result Performing Organization Address [facility] Co de Phone Number [facility] [address] [place] [address] * (ABNORMAL) URINALYSIS MICROSCOPIC ONLY (01/25/2017 20:46 EST) WBC, UA 5 to 10 0 - 5 /HPF 01/25/2017 21:19 [facility] RBC, UA >50 0 - 5 /HPF 01/25/2017 21:19 [facility] Squam Epithel, UA Many(A) None seen /HPF 01/25/2017 21:19 [facility] Renal Epithel, UA None seen None seen /HPF 01/25/2017 21:19 [facility] Bacteria, UA Rare(A) None seen /HPF 01/25/2017 21:19 [facility] Crystals, UA None seen /HPF 01/25/2017 21:19 [facility] Hyaline Casts, UA None seen /LPF 01/25/2017 21:19 [facility] UA Comment Microscopic results 01/25/2017 20:20 [facility] Comment: are unreliable on urines unrefrig >2hrs or refrig >8hrs. Urine specimen (specimen) URINE / Unknown 01/25/2017 20:46 EST 01/25/2017 21:01 EST us Scottie Camarena MD URINALYSIS ORDERABLES Final Result Performing Organization Address [facility]/ZIP Co de Phone Number [facility] [address] [place] [address] * (ABNORMAL) HEMAGRAM AND DIFFERENTIAL (01/25/2017 20:45 EST) WBC 1.43(L) 4.0 - 12.4 K/cmm 01/25/2017 21:14 [facility] RBC 4.24 3.86 - 5.04 M/cmm 01/25/2017 21:14 [facility] Hemoglobin 12.0 11.6 - 15.2 gm/dl 01/25/2017 21:14 [facility] HCT 36.1 34.9 - 44.4 % 01/25/2017 21:14 [facility] MCV 85 81 - 98 fl 01/25/2017 21:14 [facility] MCH 28.3 26.7 - 33.3 pg 01/25/2017 21:14 [facility] MCHC 33.2 32.1 - 35.9 gm/dl 01/25/2017 21:14 [facility] RDW-CV 14.6 11.7 - 14.6 % 01/25/2017 21:14 [facility] RDW-SD 46.0 37.6 - 50.3 fl 01/25/2017 21:14 [facility] PLT 60(L) 141 - 377 K/cmm 01/25/2017 21:14 [facility] MPV 10.7 9.5 - 12.7 fl 01/25/2017 21:14 [facility] Neutrophils 66.0 % 01/25/2017 21:48 [facility] Lymphocytes 28.0 % 01/25/2017 21:48 [facility] Monocytes 6.0 % 01/25/2017 21:48 [facility] ABS Neutrophils 0.94(L) 2.20 - 8.85 K/cmm 01/25/2017 21:48 [facility] ABS Lymphs 0.40(L) 1.09 - 3.30 K/cmm 01/25/2017 21:48 [facility] ABS Monocytes 0.09(L) 0.1 - 0.8 K/cmm 01/25/2017 21:48 [facility] Type of Diff: Manual 01/25/2017 21:48 [facility] Blood specimen (specimen) BLOOD SPECIMEN / Unknown 01/25/2017 20:45 EST 01/25/2017 21:01 EST Scottie Camarena MD PACKAGES & DNA PROBE ORDERA BLES Final Result Performing Organization Address City/[facility]/ZIP Co de Phone Number [facility] [address] [place] [address] * LIPASE (01/25/2017 20:45 EST) Lipase 195 <251 U/L 01/25/2017 21:36 [facility] Blood specimen (specimen) BLOOD SPECIMEN / Unknown 01/25/2017 20:45 EST 01/25/2017 21:01 EST Scottie Camarena MD CHEMISTRY & BLOOD GAS ORDER YANN Final Result Performing Organization Address [facility] de Phone Number [facility] [address] [place] [address] * COMPREHENSIVE METABOLIC PANEL (CMP) (01/25/2017 20:45 EST) Potassium 3.8 3.5 - 5.0 mEq/L 01/25/2017 21:36 [facility] Sodium 142 136 - 145 mEq/L 01/25/2017 21:36 [facility] Chloride 106 96 - 110 mEq/L 01/25/2017 21:36 [facility] CO2 31 22 - 32 mEq/L 01/25/2017 21:36 [facility] Comment:Note new reference r migdalia 09/07/16 Total Alkaline Phosphatase 117 38 - 126 U/L 01/25/2017 21:36 [facility] Bilirubin, Total <0.5 <1.4 mg/dl 01/26/20 17 21:36 [facility] AST 18 15 - 46 U/L 01/25/2017 21:36 [facility] ALT 26 <53 U/L 01/25/2017 21:36 [facility] Albumin 3.9 3.4 - 4.9 g/dl 01/25/2017 21:36 [facility] Total Protein 6.9 6.3 - 8.2 g/dl 01/25/2017 21:36 [facility] Creatinine 0.89 0.52 - 1.04 mg/dl 01/25/2017 21:36 [facility] GFR, Calculated 73 >60 ml/min/1.7 3m2 01/25/2017 21:36 [facility] Comment: eGFR calculated using CKD-EPI equation for non Americans. Multiply eGFR by 1.16 for Americans. BUN 15 10 - 26 mg/dl 01/25/2017 21:36 [facility] Calcium 9.3 8.5 - 10.5 mg/dl 01/25/2017 21:36 [facility] Calculated Calcium 9.4 8.5 - 10.5 mg/dl 01/25/2017 21:36 [facility] Comment: Note new formula for calculation in use 08/25/2016 Glucose, Serum 77 70 - 100 mg/dl 01/25/2017 21:36 [facility] Fasting? Unknown 01/25/2017 21:01 [facility] Blood specimen (specimen) BLOOD SPECIMEN / Unknown 01/25/2017 20:45 EST 01/25/2017 21:01 EST Scottie Camarena MD CHEMISTRY & BLOOD GAS ORDER YANN Final Result [facility] [address] [place] [address] documented in this encounter Visit Diagnoses Diagnosis Upper abdominal pain- Primary Abdominal pain, other specified site documented in this encounter Administered Medications Inactive Administered Medications - up to 3 most recent administrations Medication Order MAR Action Action Date Dose Rate Site HYDROmorphone (DILAUDID) injection 1 mg 1 mg, intravenous, NOW X1, 1 dose, On Tue01/25/17 at 2030, STAT Given 01/25/2017 21:05 EST 1 mg HYDROmorphone (DILAUDID) injection 1 mg 1 mg, intravenous, NOW X1, 1 dose, On Tue01/25/17 at 2230, STAT Given 01/25/2017 22:38 EST 1 mg ondansetron (PF) (ZOFRAN) injection 4 mg 4 mg, intravenous, NOW X1, 1 dose, On Tue01/25/17 at 2030, STAT Given 01/25/2017 21:05 EST 4 mg ondansetron 4 mg ODT tab STARTER PACK 1 Package, oral, NOW X1, 1 dose, On Tue01/26/17 at 0100, STAT Given 01/26/2017 1:07 EST 1 Package oxyCODONE (ROXICODONE) 5 mg immediate release tablet 1 dose, Starting on Tue01/26/17 at 0114, Until Tue01/26/17 at 0324 oxyCODONE (ROXICODONE) immediate release tablet 10 mg 10 mg, oral, NOW X1, 1 dose, On Tue01/26/17 at 0130, STAT Given 01/26/2017 1:18 EST 10 mg sodium chloride 0.9 % BOLUS 1,000 mL 1,000 mL, intravenous, NOW X1, 1 dose, On Tue01/25/17 at 2030, STAT New Bag 01/25/2017 21:03 EST 1,000 mL documented in this encounter Discontinued Medications Medication Sig Discontinue Reason Start Date End Da te oxyCODONE (ROXICODONE) 5 mg immediate release tablet Take 1 Tab by mouth every 4 hours. Daily Max: 30 mg 01/03/2017 01/26/2017 documented as of this encounter Active and Recently Administered Medications Times are shown in EST. Scheduled Medication Order 01/24/2017 01/25/2017 01/26/2017 HYDROmorphone (DILAUDID) injection 1 mg (COMPLETED) 1 mg, intravenous, NOW X1, 1 dose, On Tue01/25/17 at 2030, STAT 2105 (Given - Provider: Scottie Hayward RN) HYDROmorphone (DILAUDID) injection 1 mg (COMPLETED) 1 mg, intravenous, NOW X1, 1 dose, On Tue01/25/17 at 2230, STAT 2238 (Given - Provider: Scottie Hayward RN) ondansetron (PF) (ZOFRAN) injection 4 mg (COMPLETED) 4 mg, intravenous, NOW X1, 1 dose, On Tue01/25/17 at 2030, STAT 2105 (Given - Provider: Scottie Hayward RN) ondansetron 4 mg ODT tab STARTER PACK (COMPLETED) 1 Package, oral, NOW X1, 1 dose, On Tue01/26/17 at 0100, STAT 0107 (Given - Provid er: Merary Verma, KENN) oxyCODONE (ROXICODONE) immediate release tablet 10 mg (COMPLETED) 10 mg, oral, NOW X1, 1 dose, On Tue01/26/17 at 0130, STAT 0118 (Given - Provid er: Merary Verma RN) sodium chloride 0.9 % BOLUS 1,000 mL (COMPLETED) 1,000 mL, intravenous, NOW X1, 1 dose, On Tue01/25/17 at 2030, STAT 2103 (New Bag - Provider: Ember Chew) 0059 (Completed - Provider: Merary Verma, KENN) No Frequency Medication Order 01/24/2017 01/25/2017 01/26/2017 oxyCODONE (ROXICODONE) 5 mg immediate release tablet 1 dose, Starting on Tue01/26/17 at 0114, Until Tue01/26/17 at 0324 documented in this encounter Orders Medications Ordered That Luc ht Not Have Been Administered Count Last Ordered Date First Ordered Date oxyCODONE (ROXICODONE) 5 mg immediate release tablet 1 01/26/2017 Nursing Count Last Ordered Date First Orde red Date INSERT PERIPHERAL IV 1 01/25/2017 documented in this encounter Care Teams Mental Health Consultant Relationship Specialty Start Date End Date None, Provider PCP - General 01/03/17 02/23/17 documented as of this encounter
--- OUTSIDE RECORDS SUMMARY | 2024-11-22 17:30 | XMS_ITS | Encounter Summary ---
Author Organization [facility] Address [address] [place] [address] Care Team Providers Care Grounds Worker Name Role Phone Jayden Tijerina MD Primary Care Provider [phone] Reason for Visit * Reason Comments Shortness of Breath Patient reports onse t today of sob, passing blood clots from urethra and lower abodminal pressure. Patient s/p urethra stents on 2wks ago. Encounter Details Date Type Department Care Team (Late st Contact Info) Description 07/31/2015 16:41 EDT - 07/31/2015 22:23 EDT Emergency [facility] Emergency Department - [address] [id number] Wayne Talamantes MD [address] [place] [address], [address] [place] [address] Emergency, MD Rolando Flank pain (Primary Dx); [...] Sign Reading Time Taken Comments Blood Pressure 130/53 07/31/20152208 EDT Pulse 80 07/31/20152208 EDT Temperature 37.3 ??C (99.1 ??F) 07/31/20152208 EDT Respiratory Rate 16 07/31/20152208 EDT Oxygen Saturation 97% 07/31/20152208 EDT Inhaled Oxygen Concentration - - Weight 95.3 kg (210 lb) 07/31/2015 1655 EDT Height - - Body Mass Index 34.95 07/29/2015 1139 EDT documented in this encounter Functional Status [...] seble Hewitt RN documented in this encounter Discharge Instructions * Discharge Instructions* Wayne Talamantes MD - 07/31/2015 22:00 EDT 1. Drink plenty of fluids. 2. Continue all of your medications as prescribed. 3. Acetaminophen 1000mg every 4 hours (up to 4 times a day) and/or ibuprofen 600mg every 6 hours asneeded. Hydromorphone 2 - 4mg every 4 hours as needed. Return for pain not responding to this medication. Do not drive while taking this medication. Return to the Emergency Department (ED) if your condition worsens, does not improve as expected, orfor any other concerns. Specifically return if you have new or uncontrolled pain, worsening fever, difficulty breathing, vomiting, or are unable to drink fluids. documented in this encounter Medications at Time [...] mcg as directed 2 times daily. 11/26/2019 HYDROmorphone (DILAUDID) 2 mg tablet Take 1-2 Tabs by mouth every 4 hours as needed for Pain Daily Max: 24 mg 30 Tab 0 08/14/2015 08/14/2015 LEVOTHYROXINE SODIUM (LEVOTHYROXINE ORAL) Take 25 mcg [...] 30 mg 30 Tab 0 08/14/2015 08/18/2015 oxyCODONE (ROXICODONE) 5 mg immediate release tablet Take 0.5 Tabs by mouth every 6 hours as needed for Pain Daily Max: 10 mg 12 Tab 0 07/25/2015 08/14/2015 pantoprazole (PROTONIX) 40 mg tablet Take 40 mg by mouth daily. 01/03/2019 rifAXImin (XIFAXAN) 550 mg tablet Take 550 mg by mouth 2 times daily 01/03/2019 tamsulosin (FLOMAX) 0.4 mg capsule Take 1 Cap by mouth daily 15 Cap 1 07/13/2015 05/04/2016 vancomycin (VANCOCIN) 125 mg capsule Take 1 Cap by mouth 4 times daily for 11 days 44 Cap 0 07/25/2015 08/05/2015 documented as of this encounter Discharge Disposition Disposition Code Departure Means Destination Home or Self Care Walk-out Home documented in this encounter ED Notes * Val Alcala RN - 07/31/20152148 EDT Pt stated I'm ready to go home. I just want to go get in my bed. Pt stated having improvement in pain and nausea; made Dr. Talamantes aware * Val Alcala RN - 07/31/20151999 EDT Pt c/o mild SOB when transferring from bed to bedside commode; pt urine is ange and cloudy with small clots; rated abdominal pain 7/10; given IV dilaudid and zofran per order; pt NSR on telemetry; O2 sat =97%RA * Anthony Camacho - 07/31/2015 193 EDT Blood drawn via saline lock per protocol, tiger and purple tube(s) sent to lab per order. * Wayne Talamantes MD - 07/31/2015 1801 EDT DOS: 07/31/2015 Chief Complaint Patient presents with ??? Shortness of Breath Patient reports onset today of sob, passing blood clots from urethra and lower abodminal pressure. Patient s/p urethra stents on 2wks ago. HPI The patient is a 55 y.o. female who presents today with Shortness of Breath HPI Comments: I, Javid Paul, am scribing for Wayne Talamantes MD while he is personally performing the service. Javid Miller 07/31/2015 18:18 Phylricardo Yun is a 55 y.o. female with a history of pyelonephritis, cirrhosis, asthma and coagulopathy who presents to the ED with shortness of breath. The patient was seen here on 07/12/2015 for aleft sided obstructive ureteral stone, a left ureteral stent was placed and she was discharged homeon Cipro. Following her procedure, the patient developed chest pressure with associated dyspnea on e xertion. Three days later the patient received an outpatient ureteroscopy, lithotripsy and stent replacement before being discharged home. she was noted to have a negative urine culture, low D-dimer and a negative CT which showed a renal colic and left ureteral stent with mild left periureteral fatstranding. The patient returned the next day, 07/16/2015 with atypical chest pressure, nausea and emesis, she was admitted for persistent pyelonephritis and was given IV fluids and Cipro. While here,the patient was found to have pancytopenia and C. Difficile, she was treated with Vancomycin and discharged 6 days ago with oral Vancomycin and pain control. Two days ago, the patient had worsening flank pain and hematuria consisting of two clots. She contacted her urology attending by phone an wastold that occcational hematuria associated with a stent is normal. Today, she developed significantly worsened flank pain with continued hematuria plus associated shortness of breath, chills, weakness, diarrhea, nausea, emesis and subjective fever (100.7). She has had persistent diarrhea up to 4 times per day but overall feels her C'diff is improving. The history is provided by the patient and medical records. No spanish medical interpreter was used. Review of Systems Review of Systems Constitutional: Positive for fever and chills. Negative for activity change. HENT: Negative for congestion and rhinorrhea. Eyes: Negative for discharge and redness. Respiratory: Positive for shortness of breath. Negative for cough, wheezing and stridor. Cardiovascular: Positive for chest pain. Negative for palpitations and leg swelling. Gastrointestinal: Positive for nausea, vomiting, abdominal pain and diarrhea. Negative for abdominal distention. Genitourinary: Positive for hematuria and flank pain (left). Negative for difficulty urinating and pelvic pain. Musculoskeletal: Negative for back pain and gait problem. Skin: Negative for rash. Neurological: Positive for weakness. Negative for headaches. Psychiatric/Behavioral: Negative. All other systems reviewed and are [...] Rash Vital Signs Vitals Reassessment?: Yes Temp: 37.3 ??C (99.1 ??F) Temp src: Oral Pulse: 80 Heart Rate: 65 BPM Resp: 16 SpO2: 97 % BP: 130/53 mmHg BP Device: BP Machine Patient Position: [...] She exhibits no distension. There is tenderness (Exquisite left flank tenderness). Musculoskeletal: Normal range of motion. She exhibits no edema. Neurological: She is alert and oriented to person, place, and time. Skin: Skin is warm and dry. No rash noted. Psychiatric: She has a normal mood and affect. Nursing note and vitals reviewed. RESULTS EKG orders: None Radiology orders: POCT US RENAL: US renal performed. Findings show ureteral stent is in a good position. Images obtained, reviewed, and interpreted independently by myself. Please see formal report in the PR[employer] Imagessection. Images saved in PACS. POCT ED TEACHING ABDOMEN AP 1 VIEW: ureteral stent in good position. I personally reviewed the above study(ies) contemporaneously and independently. Reviewed and discussed findings with non profit job titles radiology nurse. Attending radiologist not present and immediately available for formal review. ED Lab Results Labs Reviewed BASIC METABOLIC PANEL - Abnormal BUN 8 (*) Final Sodium 139 Final Potassium 4.0 Final Chloride 104 Final CO2 28 Final Creatinine 0.68 Final GFR, Calculated 99 Final Calcium 8.7 Final Calculated Calcium 9.8 Final Glucose, Serum 81 Final Fasting? Unknown Final HEMAGRAM AND DIFFERENTIAL - Abnormal WBC 2.14 (*) Final Hemoglobin 11.5 (*) Final RDW-CV 15.2 (*) Final PLT 73 (*) Final ABS Neutrophils 1.53 (*) Final ABS Lymphs 0.39 (*) Final RBC 4.03 Final HCT 34.9 Final MCV 87 Final MCH 28.6 Final MCHC 33.0 Final RDW-SD 45.9 Final MPV 8.4 Final Neutrophils 71.5 Final Lymphocytes 18.0 Final Monocytes 7.4 Final Eosinophils 2.4 Final Basophils 0.7 Final ABS Monocytes 0.16 Final ABS Eosinophils 0.05 Final ABS Basophils 0.02 Final Type of Diff: Automated Final URINALYSIS WITH REFLEX MICROSCOPIC - Abnormal Blood, UA 3+ (*) Final Protein, UA Trace (*) Final Leuk Esterase Trace (*) Final Color, UA Yellow Final Clarity, UA Hazy Final Glucose, UA Neg Final Bilirubin, UA Neg Final Ketones, UA Neg Final Specific [place], Urine 1.010 Final pH, UA 8.0 Final Urobilinogen, UA 0.2 Final Nitrite, UA Neg Final URINE MICROSCOPIC - Abnormal Squam Epithel, UA Few (*) Final WBC, UA less than 1 Final RBC, UA >50 Final Renal Epithel, UA None seen Final Bacteria, UA None seen Final Crystals, UA None seen Final Casts, UA None seen Final UA Comment Microscopic results Final Mucus, UA Present Final BACTERIAL CULTURE, URINE URINE CULTURE IF UA POSITIVE - NON POCT URINALYSIS ONLY Culture if Indicated Culture indicated by urinalysis results. Final Labs show no significant findings. Procedures ED COURSE A medical screening exam was performed. The patient is a 55 year old female with a history of pyelonephritis and L ureteral stent who presents to the ED with shortness of breath, low grade fever, worsening flank pain and hematuria. Fever responded to oral APAP taken prior to ED presentation. Treated with iv analgesia, antiemetics, and ivf. Limited bedside ultrasound diagnostic for no sig hydro and stent in nl position. Labs non-diagnostic with expected urinary blood. Clinically improved on re-evaluation. Discussed low likelihood of recurrent pyelo. Pt discharged home with analgesia and plan for outpatient urology/PCP follow up. ASSESSMENT AND PLAN Final diagnoses: Flank pain Hematuria DISPOSITION: Discharged Pt re-evaluated immediately prior to discharge with Improved symptoms, normal vital signs, and tolerating PO. Pain level prior discharge: 4. The patient feels this is appropriate for outpatient management with oral analgesia. Discussed clinical/diagnostic findings. Discharged with a clear plan for outpatient follow up. Given usual and customary return instructions prior to discharge. PCP: Jayden ROLLE Number of Diagnoses or Management Options Flank pain: new, needed workup Hematuria: new, needed workup Amount and/or Complexity of Data Reviewed Clinical lab tests: ordered and reviewed Tests in the radiology section of CPT??: ordered and reviewed Decide to obtain previous medical records or to obtain history from someone other than the patient:yes Obtain history from someone other than the patient: no Review and summarize past medical records: yes Discuss the patient with other providers: no Independent visualization of images, tracings, or specimens: yes Risk of Complications, Morbidity, and/or Mortality Presenting problems: high Diagnostic procedures: high Management options: high General comments: 5 Patient Progress Patient progress: improved This documentation is recorded by Javid Miller acting as Scribe under the direction and presence of Wayne Talamantes MD. Wayne Talamantes MD: I personally performed the services recorded by the scribe in my presence. I confirm the scribe's documentation has been reviewed by me to accurately and completely recordmy work, treatment, procedures, and medical decision making. 08/01/2015 0:27 No flowsheet data found. documented in this encounter Plan of Treatment Upcoming Encounters Date Type Department Care Team (Late st Contact Info) Description 01/04/2025 13:00 EST Office Visit [facility] Ophthalmology - [facility] [address], [place] [id number] Gagandeep Rome MD [address] [facility], [address] [place] [id number] 02/11/2025 13:30 EDT Telemedicine [facility] Hematology & Oncology - [address] [phone] Dana Padilla MD [address] [facility] [place], [address] [place] [address] documented as of this encounter Procedures Procedure Name Priority Date/Time Associated Diagnosis Comments ABDOMEN AP 1 VIEW STAT 07/31/2015 20: 14 EDT POCT US TEACHING STAT 07/31/2015 19:4 7 EDT POCT US RENAL STAT 07/31/2015 19:12 EDT URINE MICROSCOPIC Routine 07/31/2015 18: 49 EDT URINALYSIS WITH MICROSCOPIC IF POSITIVE STAT 07/31/2015 18:49 EDT URINE CULTURE IF POSITIVE Routine 07/31/2015 18:49 EDT COMPLETE BLOOD COUNT AND DIFFERENTIAL STAT 07/31/2015 18:49 EDT BASIC METABOLIC PANEL (BMP) STAT 07/31/2015 18:49 EDT BACTERIAL CULTURE, URINE Routine 07/31/2015 18:45 EDT documented in this encounter Results * ABDOMEN AP 1 VIEW (07/31/2015 20:14 EDT) Anatomical Region Laterality Modality Other 07/31/2015 20:1 4 EDT 07/31/2015 20:37 EDT Narrative 07/31/2015 20:37 EDT ABDOMEN AP 1 VIEW ??07/31/2015 8:14 PM Signs and Symptoms/Comments: flank pain c l ureteral stent Comparison: Renal colic CT 07/17/15. Findings: A single AP supine view of the abdomen was obtained. There are multiple surgical clips on the right side of the abdomen. A right-sided phlebolith, likely in a gonadal vein is present and is stable. There is a left double-pigtail ureteral stent in place, unchanged in position since the prior CT. No radiopaque calculi are noted along its course. Again noted is evidence of marked splenomegaly. Portions of this document may have been prepared with speech recognition software or keyboard director enterprise data architecture techniques. Minor irregularities or keyboarding misprints may be present. Procedure Note Danya Liu MD - 07/31/2015 ABDOMEN AP 1 VIEW 07/31/2015 8:14 PM Signs and Symptoms/Comments: flank pain c l ureteral stent Comparison: Renal colic CT 07/17/15. Findings: A single AP supine view of the abdomen was obtained. There are multiple surgical clips on the right side of the abdomen. A right-sided phlebolith, likely in a gonadal vein is present and is stable. There is a left double-pigtail ureteral stent in place, unchanged in position since the prior CT. No radiopaque calculi are noted along its course. Again noted is evidence of marked splenomegaly. Portions of this document may have been prepared with speech recognition software or keyboard director enterprise data architecture techniques. Minor irregularities or keyboarding misprints may be present. us Wayne THAKKAR DIAGNOSTIC IMAGING OR DERABLES Final Result * POCT ED TEACHING (07/31/2015 19:47 EDT) Anatomical Region Laterality Modality Other 07/31/2015 19:4 7 EDT Narrative 07/31/2015 19:47 EDT Non Reportable Exam Procedure Note DIRECTOR OF ONLINE EDUCATION, IMAGING - 08/01/2015 Non Reportable Exam Peter Weimersheimer MD IMG POCT US ORDERABLES Fi nal Result * POCT US RENAL (07/31/2015 19:12 EDT) Anatomical Region Laterality Modality Other 07/31/2015 19:1 2 EDT 08/01/2015 21:13 EDT Narrative 08/01/2015 21:13 EDT Exam Date: 07/31/2015 Exam Type: POCT US RENAL Independent Beauty Consultant: Wayne Talamantes MD Attending: Wayne Talamantes MD Worksheet: POCUS_Renal Exam Information: ?? A focused (limited) ultrasound of the kidneys was performed to evaluate for hydronephrosis and nephrolithiasis. ?? Exam type: Clinically indicated Indication(s) for Exam: ?? The exam was performed with the following indications: Flank pain Findings: ?? Hydronephrosis of the LEFT kidney: None ?? Hydronephrosis of the RIGHT kidney: None ?? Ureteral calculi on the RIGHT: Absent ?? Ureteral caculi on the LEFT: Absent ?? Other findings: L ureteral stent Interpretation: ?? Normal limited renal ultrasound, no evidence of hydronephrosis or calculi ?? Other: L ureteral stent Views Obtained ?? The following structures were examined in two orthogonal planes from a transabdominal approach: ALL OF THE VIEWS ABOVE WERE OBTAINED Confirmatory study: ?? What confirmatory study was done?: Xray ?? Confirmatory study findings: good stent position Physician Signature: ?? I review and approve of the documentation above.: Signed by Wayne Talamantes MD on Saturday, August 01, 2015 at 9:12:40 PM This exam was performed and interpreted by the Emergency Department Staff Procedure Note Wayne Talamantes MD - 08/01/2015 Exam Date: 07/31/2015 Exam Type: POCT US RENAL Independent Beauty Consultant: Wayne Talamantes MD Attending: Wayne Talamantes MD Worksheet: POCUS_Renal Exam Information: A focused (limited) ultrasound of the kidneys was performed to evaluate for hydronephrosis and nephrolithiasis. Exam type: Clinically indicated Indication(s) for Exam: The exam was performed with the following indications: Flank pain Findings: Hydronephrosis of the LEFT kidney: None Hydronephrosis of the RIGHT kidney: None Ureteral calculi on the RIGHT: Absent Ureteral caculi on the LEFT: Absent Other findings: L ureteral stent Interpretation: Normal limited renal ultrasound, no evidence of hydronephrosis or calculi Other: L ureteral stent Views Obtained The following structures were examined in two orthogonal planes from a transabdominal approach: ALL OF THE VIEWS ABOVE WERE OBTAINED Confirmatory study: What confirmatory study was done?: Xray Confirmatory study findings: good stent position Physician Signature: I review and approve of the documentation above.: Signed by Wayne Talamantes MD on Saturday, August 01, 2015 at 9:12:40 PM This exam was performed and interpreted by the Emergency Department Staff us Wayne Talamantes MD IMG POCT US ORDERABLES Fi nal Result * (ABNORMAL) URINE MICROSCOPIC (07/31/2015 18:49 EDT) WBC, UA less than 1 0 - 5 /HPF 07/31/2015 20:09 T [facility] RBC, UA >50 0 - 5 /HPF 07/31/2015 20:09 [facility] Squam Epithel, UA Few(A) None seen /HPF 07/31/2015 20:09 [facility] Renal Epithel, UA None seen None seen /HPF 07/31/2015 20:09 [facility] Bacteria, UA None seen None seen /HPF 07/31/2015 20:09 [facility] Crystals, UA None seen /HPF 07/31/2015 20:09 [facility] Hyaline Casts, UA None seen /LPF 07/31/2015 20:09 [facility] UA Comment Microscopic results 07/31/2015 20:09 [facility] Comment: are unreliable on urines unrefrig >2hrs or refrig >8hrs. Mucus, UA Present 07/31/2015 20:09 [facility] URINE / Unknown 07/31/2015 1 8:49 EDT 07/31/2015 19:50 EDT us Wayne Talamantes MD URINALYSIS ORDERABLES Fin al Result [facility] [address] [place] [address] * URINE CULTURE IF UA POSITIVE - NON POCT URINALYSIS ONLY (07/31/2015 18:49 EDT) Culture if Indicated Culture indicated by urinalysis results. 07/31/2015 20:10 [facility] Urine specimen (specimen) TOPOGRAPHY UNKNOWN / Unknown 07/31/2015 18:49 EDT 07/31/2015 19:50 EDT us Wayne Talamantes MD MICROBIOLOGY - GENERAL OR DERABLES Final Result [facility] [address] [place] [address] * (ABNORMAL) URINALYSIS WITH REFLEX MICROSCOPIC (07/31/2015 18:49 EDT) Color, UA Yellow 07/31/2015 20:09 [facility] Clarity, UA Hazy 07/31/2015 20:09 [facility] Glucose, UA Neg Neg 07/31/2015 20:09 [facility] Bilirubin, UA Neg Neg 07/31/2015 20:09 [facility] Ketones, UA Neg Neg 07/31/2015 20:09 [facility] Specific [place], Urine 1.010 1.001 - 1.035 07/31/2015 20:09 [facility] Blood, UA 3+(A) Neg 07/31/2015 20:09 [facility] pH, UA 8.0 4.6 - 8.0 07/31/2015 20:09 [facility] Protein, UA Trace(A) Neg 07/31/2015 20:09 [facility] Urobilinogen, UA 0.2 0.2 - 1.0 E.U./dl 07/31/2015 20:09 [facility] Nitrite, UA Neg Neg 07/31/2015 20:09 [facility] Leuk Esterase Trace(A) Neg 07/31/2015 20:09 [facility] Urine specimen (specimen) URINE / Unknown 07/31/2015 18:49 EDT 07/31/2015 19:50 EDT us Wayne Talamantes MD URINALYSIS ORDERABLES Fin al Result [facility] [address] [place] [address] * (ABNORMAL) HEMAGRAM AND DIFFERENTIAL (07/31/2015 18:49 EDT) WBC 2.14(L) 4.0 - 12.4 K/cmm 07/31/2015 19:37 [facility] RBC 4.03 3.86 - 5.04 M/cmm 07/31/2015 19:37 [facility] Hemoglobin 11.5(L) 11.6 - 15.2 gm/dl 07/31/2015 19:37 [facility] HCT 34.9 34.9 - 44.4 % 07/31/2015 19:37 [facility] MCV 87 81 - 98 fl 07/31/2015 19:37 [facility] MCH 28.6 26.7 - 33.3 pg 07/31/2015 19:37 [facility] MCHC 33.0 32.1 - 35.9 gm/dl 07/31/2015 19:37 [facility] RDW-CV 15.2(H) 11.7 - 14.6 % 07/31/2015 19:37 [facility] RDW-SD 45.9 37.6 - 50.3 fl 07/31/2015 19:37 [facility] PLT 73(L) 141 - 320 K/cmm 07/31/2015 19:37 [facility] MPV 8.4 7.5 - 11.2 fl 07/31/2015 19:37 [facility] % Neutrophils 71.5 45.5 - 79.7 % 07/31/2015 19:37 [facility] % Lymphocytes 18.0 15.0 - 46.8 % 07/31/2015 19:37 [facility] % Monocytes 7.4 1.8 - 12.0 % 07/31/2015 19:37 [facility] % Eosinophils 2.4 0.6 - 6.9 % 07/31/2015 19:37 [facility] % Basophils 0.7 0.2 - 1.4 % 07/31/2015 19:37 [facility] ABS Neutrophils 1.53(L) 2.20 - 8.85 K/cmm 07/31/2015 19:37 [facility] ABS Lymphs 0.39(L) 1.09 - 3.30 K/cmm 07/31/2015 19:37 [facility] ABS Monocytes 0.16 0.1 - 0.8 K/cmm 07/31/2015 19:37 [facility] ABS Eosinophils 0.05 0.03 - 0.61 K/cmm 07/31/2015 19:37 [facility] ABS Basophils 0.02 0.01 - 0.11 K/cmm 07/31/2015 19:37 [facility] Type of Diff: Automated 07/31/2015 19:37 [facility] Blood specimen (specimen) BLOOD SPECIMEN / Unknown 07/31/2015 18:49 EDT 07/31/2015 19:29 EDT us Wayne Talamantes MD PACKAGES & DNA PROBE DEMI CARDENAS Final Result [facility] [address] [place] [address] * (ABNORMAL) BASIC METABOLIC PANEL (07/31/2015 18:49 EDT) Sodium 139 136 - 145 mEq/L 07/31/2015 19:52 [facility] Potassium 4.0 3.5 - 5.0 mEq/L 07/31/2015 19:52 [facility] Chloride 104 96 - 110 mEq/L 07/31/2015 19:52 [facility] CO2 28 24 - 32 mEq/L 07/31/2015 19:52 T [facility] BUN 8(L) 10 - 26 mg/dl 07/31/2015 19:52 [facility] Creatinine 0.68 0.52 - 1.04 mg/dl 07/31/2015 19:52 [facility] GFR, Calculated 99 >60 ml/min/1.7 3m2 07/31/2015 19:52 T [facility] Comment: eGFR calculated using CKD-EPI equation for non Americans. Multiply eGFR by 1.16 for Americans. Calcium 8.7 8.5 - 10.5 mg/dl 07/31/2015 19:52 [facility] [facility] Calculated Calcium 9.8 8.5 - 10.5 mg/dl 07/31/2015 19:52 [facility] Glucose, Serum 81 70 - 100 mg/dl 07/31/2015 19:52 [facility] Fasting? Unknown 07/31/2015 19:29 EDT [facility] Blood specimen (specimen) BLOOD SPECIMEN / Unknown 07/31/2015 18:49 EDT 07/31/2015 19:29 EDT Wayne Talamantes MD CHEMISTRY & BLOOD GAS ORD ERABLES Final Result [facility] [address] [place] [address] * BACTERIAL CULTURE, URINE (07/31/2015 18:45 EDT) Result Less than 10,000 CFU/ml Gram negative bacilli 08/02/2015 8:59 EDT [facility] URINE / Unknown 07/31/2015 1 8:45 EDT 07/31/2015 21:05 EDT us Rolando Schaefer MD MICROBIOLOGY - GENERAL ORDDoug CARDENAS Final Result Performing Organization Address City/[facility]/ZIP Co de Phone Number [facility] [address] [place] [address] documented in this encounter Visit Diagnoses Diagnosis Flank pain- Primary Abdominal pain, unspecified site Hematuria Hematuria, unspecified documented in this encounter Administered Medications Inactive Administered Medications - up to 3 most recent administrations Medication Order MAR Action Action Date Dose Rate Site HYDROmorphone (PF) (DILAUDID) 1 mg/mL injection 1 mg 1 mg, intravenous, NOW X1, 1 dose, On Kirsten 07/31/15 at 1830, STAT Given 07/31/2015 19:59 EDT 1 mg HYDROmorphone (PF) (DILAUDID) 1 mg/mL injection 1 mg 1 mg, intravenous, NOW X1, 1 dose, On Kirsten 07/31/15 at 2045, STAT Given 07/31/2015 21:22 EDT 1 mg Hydromorphone 2 mg Tab STARTER PACK 1 Package, oral, NOW X1, 1 dose, On Kirsten 07/31/15 at 2215, STAT Given 07/31/2015 22:12 EDT 1 Package lactated ringers BOLUS 1,000 mL 1,000 mL, intravenous, NOW X1, 1 dose, On Kirsten 07/31/15 at 1830, STAT Given 07/31/2015 19:30 EDT 1,000 mL metoCLOPramide (REGLAN) injection 10 mg 10 mg, intravenous, NOW X1, 1 dose, On Kirsten 07/31/15 at 2045, STAT Given 07/31/2015 21:22 EDT 10 mg ondansetron (PF) (ZOFRAN) injection 4 mg 4 mg, intravenous, NOW X1, 1 dose, On Kirsten 07/31/15 at 1830, STAT Given 07/31/2015 19:59 EDT 4 mg documented in this encounter Active and Recently Administered Medications Times are shown in EDT. Scheduled Medication Order 07/29/2015 07/30/2015 07/31/2015 HYDROmorphone (PF) (DILAUDID) 1 mg/mL injection 1 mg (COMPLETED) 1 mg, intravenous, NOW X1, 1 dose, On Kirsten 07/31/15 at 1830, STAT 1958 (Given - Provid er: Val Alcala RN) HYDROmorphone (PF) (DILAUDID) 1 mg/mL injection 1 mg (COMPLETED) 1 mg, intravenous, NOW X1, 1 dose, On Kirsten 07/31/15 at 2045, STAT 2121 (Given - Provid er: Val Alcala RN) Hydromorphone 2 mg Tab STARTER PACK (COMPLETED) 1 Package, oral, NOW X1, 1 dose, On Kirsten 07/31/15 at 2215, STAT 2212 (Given - Provid er: Val Alcala RN) lactated ringers BOLUS 1,000 mL (COMPLETED) 1,000 mL, intravenous, NOW X1, 1 dose, On Kirsten 07/31/15 at 1830, STAT 1930 (Given - Provid er: Anthony Camacho) metoCLOPramide (REGLAN) injection 10 mg (COMPLETED) 10 mg, intravenous, NOW X1, 1 dose, On Kirsten 07/31/15 at 2045, STAT 2122 (Given - Provid er: Val Alcala RN) ondansetron (PF) (ZOFRAN) injection 4 mg (COMPLETED) 4 mg, intravenous, NOW X1, 1 dose, On Kirsten 07/31/15 at 1830, STAT 1959 (Given - Provid er: Val Alcala RN) documented in this encounter Orders Nursing Count Last Ordered Date First Orde red Date INSERT PERIPHERAL IV 1 07/31/2015 IV Count Last Ordered Date First Orde red Date IV REQUEST 1 07/31/2015 documented in this encounter Care Teams Grounds Worker Relationship Specialty Start Date End Date Jayden Tijerina MD PCP - General 07/31/15 01/02/17 documented as of this encounter
--- OUTSIDE RECORDS SUMMARY | 2024-11-22 17:30 | XMS_ITS | Encounter Summary ---
Author Organization [facility] Address [address] [place] [address] Care Team Providers Care Music Industry Internship Name Role Phone Jayden Tijerina MD Primary Care Provider [phone] Reason for Visit * Reason Onset Date Comments Fever 07/31/2015 Hematuria 07/31/2015 Chills 07/31/2015 Encounter Details Date Type Department Care Team (Late st Contact Info) Description 07/31/2015 Telephone [facility] Urology - [facility] [address] [place], [place] [phone] Jordan Dickens MD 111 [facility], Level 5 [place] [address] Fever; Hematuria; Chills Social History Tobacco Use Types Packs/Day Years [...] Telephone Encounter - Joseline Arcos RN - 07/31/2015 1539 EDT TC to pt. Pt started having chills and weakness this morning. Fever 100.7. Pt is having diarrhea, nausea, and vomited this morning. Pt is continuing to take flomax, vacomycin, and oxybutynin. Pt states she is having hematuria which is caused from the stent still in place. Discussed with Dr. Dickens.Pt needs to go to ED. * Telephone Encounter - Emma Beasley - 07/31/2015 1446 EDT Reason for Call: Fever and Hematuria Summary/Symptoms: Pt calling back to speak with a nurse, states she is still experiencing bleeding and now has fever. Please call. Emma Beasley 07/31/2015 14:46 documented in this encounter Plan of Treatment Upcoming Encounters Date Type Department Care Team (Late st Contact Info) Description 01/04/2025 13:00 EST Office Visit [facility] Ophthalmology - [address] [phone] Gagandeep Rome MD [address] [place] [address], [facility] 5 [place] [phone] 02/11/2025 13:30 EDT Telemedicine [facility] Hematology & Oncology [address] [phone] Dana Padilla MD [address] [place] [address], [address] [place] [phone] documented as of this encounter Visit Diagnoses Not on filedocumented in this encounter Care Teams Music Industry Internship Relationship Specialty Start Date End Date Jayden Tijerina MD PCP - General 07/31/15 01/02/17 documented as of this encounter
--- OUTSIDE RECORDS SUMMARY | 2024-11-22 17:30 | XMS_ITS | Encounter Summary ---
Author Organization [facility] Address [address] [place] [address] Care Team Providers Care Disc Ruler Operator Name Role Phone Jayden Tijerina MD Primary Care Provider [phone] Reason for Visit * Reason Onset Date Comments Other 08/11/2015 CBC, type and sc reen order Encounter Details Date Type Department Care Team (Late st Contact Info) Description 08/11/2015 Telephone [facility]- [address] [phone] Jesus Vaughan MD 111 [facility], Level 4 [place] [address] Other ( CBC, type and screen order ) Social History Tobacco Use Types Packs/Day [...] Date of Assessment Author No 07/18/2015 1:[address] [facility] RN * Are you blind or do you have serious difficulty seeing, even when wearing glasses? Answer Date of Assessment Author No 07/18/2015 1:[address] [facility] RN * Do you have serious difficulty [...] Telephone Encounter - Allison Farley RN - 08/12/[address] Nelson has also placed inpatient orders for this to be done. * Telephone Encounter - Scottie Cardoza RN - 08/11/2015 1620 EDT Per OR booking sheet form Dr. Vaughan orders placed. Dana to call patient to go to lab tomorrow for pre op labs. * Telephone Encounter - Dana Wills - 08/11/2015 1557 EDT Per Pre-op Nurse Kate,Type and screen orders are not in the system. OR 9.23.15 documented in this encounter Plan of Treatment Upcoming Encounters Date Type Department Care Team (Late st Contact Info) Description 01/04/2025 13:00 EST Office Visit [facility] Ophthalmology - [address] [phone] Gagandeep Rome MD [address] [place] [address], [facility] 5 [place] [phone] 02/11/2025 13:30 EDT Telemedicine [facility] Hematology & Oncology - [address] [phone] Dana Padilla MD [address] [place] [address], Level 2 [place] [phone] documented as of this encounter Visit Diagnoses Diagnosis Swelling, mass, or lump in head and neck- Primary documented in this encounter Care Teams Disc Ruler Operator Relationship Specialty Start Date End Date Jayden Tijerina MD PCP - General 07/31/15 01/02/17 documented as of this encounter
--- OUTSIDE RECORDS SUMMARY | 2024-11-22 17:30 | XMS_ITS | Encounter Summary ---
Author Organization [facility] Address [address] [place] [address] Care Team Providers Care Bed Bug Exterminator Name Role Phone Emigdio Centeno MD Primary Care Provider [phone] Reason for Visit * Reason Onset Date Comments Hematuria 07/30/2015 Flank Pain 07/30/2015 Encounter Details Date Type Department Care Team (Late st Contact Info) Description 07/30/2015 Telephone [facility] Urology - [address] [phone] Jordan Dickens MD 111 [facility], [address] [place] [address] Hematuria; Flank Pain Social History Tobacco Use Types Packs/Day [...] encounter Miscellaneous Notes * Telephone Encounter - Constance Ash RN - 07/30/2015 1235 EDT TC to patient who reports she started to pass small blood clots in her urine yesterday and her urine was bloody. She reports the urine started to clear after she rested and laid down. She reports this morning she is passing small clots again. She reports she is having left sided flank pain 05/30 which she has had since the stent was placed. Denies a fever. Pt reports she is urinating small amountsof urine but is going every hour or so. She does not feel any lower abdominal pressure or discomfort. Pt advised to push fluids and take it easy this afternoon. Made aware if urine turns a dark purple, clots increase in size, she develops a fever, flank pain worsens or she develops any lower abdomin al/pain pressure and does not feel like she is emptying, she should call the office or be evaluatedin the ED. * Telephone Encounter - Yvonne Luke - 07/30/2015 1145 EDT Reason for Call: Hematuria Summary/Symptoms: Pt has been having bright red blood clots onset yesterday, she tried to call oncall after hours and spoke w/ that provider and she states he tried to call her back to see how she isdoing, pain level 7 today w/ left flank area and burning w/ urination, denies fever Yvonne Ti 07/30/2015 11:45 documented in this encounter Plan of Treatment Upcoming Encounters Date Type Department Care Team (Late st Contact Info) Description 01/04/2025 13:00 EST Office Visit [facility] Ophthalmology - [address] [phone] Gagandeep Rome MD [address] [place] [address], [facility] 5 [place] [phone] 02/11/2025 13:30 EDT Telemedicine [facility] Hematology & Oncology - [address] [phone] Dana Padilla MD [address] [place] [address], [facility] 2 [place] [phone] documented as of this encounter Visit Diagnoses Not on filedocumented in this encounter Care Teams Bed Bug Exterminator Relationship Specialty Start Date End Date Emigdio Centeno MD [address] [place] [address] PCP - General 09/14/14 07/30/15 documented as of this encounter
--- OUTSIDE RECORDS SUMMARY | 2024-11-22 17:30 | XMS_ITS | Encounter Summary ---
Author Organization [facility] Address [address] [place] [address] Care Team Providers Care Jumpbasting Facing Baster Name Role Phone Jayden Tijerina MD Primary Care Provider [phone] Reason for Visit * Reason Comments Post-OP Follow Up Encounter Details Date Type Department Care Team (Late st Contact Info) Description 08/20/2015 14:00 EDT Office Visit [facility]- [address] [address] Jesus Vaughan MD [address] [place] [address], Level [address] [place] [address] Branchial cleft cyst (Primary Dx); Post-operative pain Discharge Disposition: Auto Discharge Social History [...] documented in this encounter Discharge Diagnoses Diagnosis 744.42 BRANCHIAL CLEFT CYST[ICD-9-CM] 338.18 OTHER ACUTE POSTOPERATIVE PAIN[ICD-9-CM] documented in this encounter Ordered Prescriptions Prescription Sig Dispense Quantity Refills Last Filled Start Date End Date oxyCODONE (ROXICODONE) 5 mg immediate release tablet Take 1 Tab by mouth every 4 hours Daily Max: 30 mg 8 Tab 0 08/20/2015 05/04/2016 documented in this encounter Discharge Disposition Disposition Code Departure Means Destination Auto Discharge documented in this encounter Progress Notes * Jesus Vaughan MD - 08/20/2015 1415 EDT Progress Note Division of Otolaryngology, Head and Neck Surgery Date of Service: 08/20/2015 Provider: Jesus Vaughan MD CHIEF COMPLAINT: Chief Complaint Patient presents with ??? Post-OP Follow Up HISTORY OF PRESENT ILLNESS: Tara Yun is a 55 y.o. year old female who comes in today to follow up one week after excision of an infected left neck cyst. She fell at home on post op day #2, but has not had any problems related to her incision. She has not had any fever. Her path showed: Pathology Report: Final Pathologic Diagnosis: SOFT TISSUE, LEFT LEVEL II NECK MASS, EXCISION - Benign squamous epithelium-lined cyst with associated lymphoid tissue, favor branchial cleft cyst, with features suggestive of previous rupture. - No eh malignancy seen. Department of Otolaryngology PHYSICAL EXAMINATION CONSTITUTIONAL: APPEARANCE: The patient appears alert, cooperative, and comfortable. ABILITY TO COMMUNICATE / VOICE: Normal for age MOUTH AND THROAT: LIPS, TEETH & GUMS: not examined ORAL CAVITY & OROPHARYNX: not examined HYPOPHARYNX: Not examined LARYNX: Not examined NECK: GENERAL: some bruising anteriorly. the incision looks fine, glue is still in place. THYROID: Normal LYMPHATIC: CERVICAL LYMPH NODES: No pathologic cervical lymphadenopathy noted ASSESMENT: Encounter Diagnoses Name Primary? Branchial cleft cyst Yes ??? Post-operative pain Doing well, she requests a few more pain pills to help her sleep at night. I have given her 8 more.Ill see her back as necessary. PLAN: Tara was seen today for post-op follow up. Diagnoses and associated orders for this visit: Branchial cleft cyst Post-operative pain Other Orders - oxyCODONE (ROXICODONE) 5 mg immediate release tablet; Take 1 Tab by mouth every 4 hours Daily Max: 30 mg Return if symptoms worsen or fail to improve. Jesus Vaughan MD documented in this encounter Plan of Treatment Upcoming Encounters Date Type Department Care Team (Late st Contact Info) Description 01/04/2025 13:00 EST Office Visit [facility] Ophthalmology - [address] [address] Gagandeep Rome MD [address] [place] [address], [facility] 5 [place] [address] 02/11/2025 13:30 EDT Telemedicine [facility] Hematology & Oncology - [address] [address] Dana Padilla MD [address] [place] [address], [facility] 2 [place] [address] documented as of this encounter Visit Diagnoses Diagnosis 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
--- OUTSIDE RECORDS SUMMARY | 2024-11-22 17:30 | XMS_ITS | Encounter Summary ---
Author Organization [facility] Address [address] [place] [address] Care Team Providers Care Ship Washer Name Role Phone Jayden Tijerina MD Primary Care Provider [phone] Encounter Details Date Type Department Care Team (Latest Contact Info) Description 08/26/2015 10:29 EDT - 08/26/2015 10:30 EDT Hospital Encounter [facility] - [address] [address] Jayden Tijerina MD [address] [place] [phone] Discharge Disposition: Home or Self Care Social [...] documented in this encounter Discharge Diagnoses Diagnosis K21.9 Gastro-esophageal reflux disease without esophagitis-K21.9[ICD-10-CM] documented in this encounter Medications at Time [...] 30 mg 8 Tab 0 08/20/2015 05/04/2016 pantoprazole (PROTONIX) 40 mg tablet Take 40 mg by mouth daily. 01/03/2019 rifAXImin (XIFAXAN) 550 mg tablet Take 550 mg by mouth 2 times daily 01/03/2019 tamsulosin (FLOMAX) 0.4 mg capsule Take 1 Cap by mouth daily 15 Cap 1 07/13/2015 05/04/2016 documented as of this encounter Discharge Disposition Disposition Code Departure Means Destination Home or Self Care documented in this encounter Plan of Treatment Upcoming Encounters Date Type Department Care Team (Late st Contact Info) Description 01/04/2025 13:00 EST Office Visit [facility] Ophthalmology - [address] [phone] Gagandeep Rome MD [address] [place] [address] 5 [place] [phone] 02/11/2025 13:30 EDT Telemedicine [facility] Hematology & Oncology - [address] [phone] Dana Padilla MD [address] [place] [address] 2 [place] [phone] Pending Results Name Type Priority Associated Diagnoses Date /Time NM CARDIAC SPECT STUDY WAVEFORM Cardiac Services 11/24/2015 10:3 0 EST NM CARDIAC SPECT STUDY Cardiac Services 11/19/2015 9:28 EST Scheduled Orders Name Type Priority Associated Diagnoses Orde r Schedule NM CARDIAC SPECT STUDY WAVEFORM Cardiac Services One Time for 1 Occurrences starting 11/19/2015 until 11/19/2015 NM CARDIAC SPECT STUDY Cardiac Services One Time for 1 Occurrences starting 11/19/2015 until 11/19/2015 documented as of this encounter Visit Diagnoses Not on filedocumented in this encounter Care Teams Ship Washer Relationship Specialty Start Date End Date Jayden Tijerina MD PCP - General 07/31/15 01/02/17 documented as of this encounter
--- OUTSIDE RECORDS SUMMARY | 2024-11-22 17:30 | XMS_ITS | Encounter Summary ---
Author Organization [facility] Address [address] [place] [address] Care Team Providers Care Business Process Consultant Name Role Phone Jayden Tijerina MD Primary Care Provider [phone] Reason for Visit * Reason Comments Post-OP Follow Up * Consult (Routine) - Closed Specialty Diagnoses / Procedures Referred By Serene huitron Referred To Contact Urology Diagnoses Acute left flank pain Jay Jay Mars MD Phone: tel: fax: Referral ID Status Reason Start Date Expiration Date V isits Requested Visits Authorized [id number] Closed Specialty Services Required 07/25/2015 1 1 Encounter Details Date Type Department Care Team (Late st Contact Info) Description 08/18/2015 16:15 EDT Post-op Visit [facility] Urology - [address] [phone] Jordan Dickens MD [address] [place] [address], Level 5 [place] [address] Calculus of ureter (Primary Dx) Discharge Disposition: Auto Discharge Social [...] Sign Reading Time Taken Comments Blood Pressure 138/80 08/18/2015 1613 EDT Pulse 72 08/18/2015 1613 EDT Temperature 37 ??C (98.6 ??F) 08/18/2015 1613 EDT Respiratory Rate - - Oxygen Saturation 97% 08/18/2015 1613 EDT Inhaled Oxygen Concentration - - Weight [...] documented in this encounter Discharge Diagnoses Diagnosis 592.1 CALCULUS OF URETER[ICD-9-CM] documented in this encounter Discharge Disposition Disposition Code Departure Means Destination Auto Discharge documented in this encounter Progress Notes * Jordan Dickens MD - 08/18/2015 1642 EDT URO Office Cystoscopy Office cystoscopy for: stent removal - left ureteroscopy for solitary left ureteral stone (mixed calcium) - 06/2015 - long overdue for stent removal Anesthesia: none. Procedure: Patient identified, prepped and draped in usual sterile manner 14 wolof. Flexible cystoscope inserted into urethra and guided into bladder under direct vision. Finding:normal urethra, normal bladder mucosa and normal orifices . Plan: stent removal - conservative measures discussed - no prior stone history Recent fall - ? neck trauma - to ED for evaluation Jordan Dickens MD August 18, 2015 documented in this encounter Plan of Treatment Upcoming Encounters Date Type Department Care Team (Late st Contact Info) Description 01/04/2025 13:00 EST Office Visit [facility] Ophthalmology - [address] [phone] Gagandeep Rome MD [address] [place] [address], [facility] 5 [place] [phone] 02/11/2025 13:30 EDT Telemedicine [facility] Hematology & Oncology - [address] [phone] Dana Padilla MD [address] [place] [address], [facility] 2 [place] [phone] documented as of this encounter Visit Diagnoses Diagnosis Calculus of ureter- Primary documented in this encounter Care Teams Business Process Consultant Relationship Specialty Start Date End Date Jayden Tijerina MD PCP - General 07/31/15 01/02/17 documented as of this encounter
--- OUTSIDE RECORDS SUMMARY | 2024-11-22 17:31 | XMS_ITS | Encounter Summary ---
Author Organization [facility] Address [address] [place] [address] Care Team Providers Care Graduate Intern Name Role Phone Emigdio Centeno MD Primary Care Provider [phone] Reason for Referral * Consult (Routine) - Closed Specialty Diagnoses / Procedures Referred By Serene t Referred To Contact Urology Diagnoses Acute left flank pain Jay Jay Mars MD Phone: tel: fax: Referral ID Status Reason Start Date Expiration Date V isits Requested Visits Authorized [id number] Closed Specialty Services Required 07/25/2015 1 1 Question Answer Reason for Request: Follow-up hospitalization for flank pain associated with recent stent. * Follow Up (3 - 10 Business Days) - Closed Specialty Diagnoses / Procedures Referred By Serene huitron Referred To Contact Diagnoses Acute left flank pain C. difficile colitis Jay Jay Mars MD Phone: tel: fax: Referral ID Status Reason Start Date Expiration Date V isits Requested Visits Authorized [id number] Closed Continuity of Care 07/25/2015 1 1 Question Answer Reason for Request: Hospitalization for CVA tnederness 2/2 recent ureteral stent; C. diff colitis diagnosed during this admission; 10 days of total oral vancomycin treatment Reason for Visit * Reason Comments Shortness of Breath Pt is s/p laser kid shelby stone surgery 2 days ago and now is having dyspnea and chest pain. Pain is midsternal and left sided and radiates to her neck and back. Encounter Details Date Type Department Care Team (Late st Contact Info) Description 07/18/2015 16:19 EDT - 07/25/2015 15:25 EDT Hospital Encounter [facility] General Medicine Unit [address] [place] [address] Ladonna López PA-C [address] [place] [address] [phone] Yvette Jacobo MD [address] [place] [address] [phone] Segundo Dickerson MD Woods, Dennis Dwight, MD [address] [place] [address] [phone] Wild Miller MD [address] [place] [phone] Pop Arroyo MD [address] [place] [phone] Intractable vomiting with nausea, vomiting of unspecified type (Primary Dx); Other chest pain; Nausea and vomiting, vomiting of unspecified type; Kidney stone; NAFLD (nonalcoholic fatty liver disease); Asthma, unspecified asthma severity, uncomplicated; Acute left flank pain; Pyelonephritis; Diarrhea; C. difficile colitis; Pancytopenia ([facility]) ([facility]) Discharge Disposition: Home or Self Care Social [...] Sign Reading Time Taken Comments Blood Pressure 127/74 07/25/2015 1040 EDT Pulse 84 07/25/2015 1040 EDT Temperature 36 ??C (96.8 ??F) 07/24/20152023 EDT Respiratory Rate 16 07/25/2015 1040 EDT Oxygen Saturation 96% 07/25/2015 1040 EDT Inhaled Oxygen Concentration - - Weight 94.3 kg (208 lb) 07/18/2015 0044 EDT Height 165.1 cm (5' 5) 07/18/2015 0044 EDT Body Mass Index 34.61 07/18/2015 0044 EDT documented in this encounter Functional Status [...] seble Elliott RN documented in this encounter Discharge Summaries * Pop Arroyo MD - 07/18/2015 1509 EDT Discharge Summary Attending Physician: No att. providers found Date of Admission: 07/18/2015 Date of Discharge: 07/25/15 Disposition: Home or Self Care Reason for Admission: Flank pain following ureteral stent placement; complicated by C. diff collitis Hospital Problems: Principal Problem: Pyelonephritis Active Problems: Pancytopenia Acute left flank pain Mild persistent asthma without complication NAFLD (nonalcoholic fatty liver disease) Splenomegaly C. difficile colitis Nausea with vomiting Chest pain Principal Procedure: CT Chest (07/17/2015) CT Renal Colic (07/17/2015) Carl catheter Hospital Course: Ms. Tara Boothe is a 54 year old woman with PMH of cirrhosis secondary to NAFLD, asthma, RA, and recent emergent ureteral stent placement and lithotripsy for nephrolithiasis (07/12/15, 07/15/15) who presented to the [facility] ER on 07/17/15 with chest pain, nausea, vomiting, and left flank pain. Vitals on presentation were T97.9, BP124/56, HR85, RR14, SpO2 100% on RA. Labs showed WBC 1.9, Hgb 10.8, PLT 60, Cr .8. UA had trace LE, positive nitrites. CT Chest negative for PE. Troponins negative. CT RENAL/COLIC showed the ureteral stent was well-positioned; no hydonephrosis, and minimal stranding. She was seen by Dr. Mari (Urology), who believed her flank pain to be 2/2 the new stent. She was admitted to the medicine team w/ suspicion of tyree procedural inflammation vs UTI vs pyelo, withassociated n/v. She was continued on ciprofloxacin 500mg BID that had been started as an outpatientfollowing her previous hospitalization. On 07/18/15, she began to have episodes of diarrhea. C difficile molecular detection was positive on07/19/15. She was started on vancomycin 125mg PO QID and was monitored for adequte I/O and resolvingdiarrhea. She had several frustrating days 2/2 concerns over continued diarrhea and fear of passingC. diff to others. This played on her anxiety and did lead to poor sleep. By 07/25/15, she was medically stable, and her pain was significantly less than on presentation. She was discharged with a prescription for 11 total days of oral vancomycin, as well as roxicodone for control of her flank pain until her follow-up with urology and her primary care physician. Clinical Issues Needing Follow-up: Clostridium difficile colitis -patient tested positive during this hospitalization after being treated with ciprofloxacin following her previous hospitalization -will require 11 more days of vancomycin 1250mg PO QID as an outpatient -she is to follow-up with her primary care physician within one week of discharge Severe flank pain 2/2 recent ureteral stent -roxicodone 2.5mg PO q6h PRN pain (12 tabs) -Follow-up with urology within one week of discharge Results Pending at Discharge: Test results still pending from this admission None Discharge Medications: START taking these medications Sig vancomycin 125 mg capsule Commonly known as: VANCOCIN 125 mg, oral, 4 TIMES DAILY CHANGE how you take these medications Sig oxyCODONE 5 mg immediate release tablet Commonly known as: ROXICODONE What changed: - how much to take - when to take this 2.5 mg, oral, EVERY 6 HOURS PRN CONTINUE taking these medications Sig albuterol 90 mcg/actuation inhaler 2 Puffs, inhalation, EVERY 4 HOURS cyanocobalamin 500 mcg tablet 1,000 mcg, oral, DAILY ferrous gluconate 324 mg (38 mg iron) tablet Commonly known as: FERGON 324 mg, oral, 2 TIMES DAILY WITH BREAKFAST & DINNER fluticasone 110 mcg/actuation inhaler Commonly known as: FLOVENT 110 mcg, inhalation, 2 TIMES DAILY LACTULOSE ORAL oral LEVOTHYROXINE ORAL oral, Unknown dose ondansetron 4 mg tablet Commonly known as: ZOFRAN ( HYDROCHLORIDE) 8 mg, oral, EVERY 8 HOURS PRN oxybutynin 5 mg tablet Commonly known as: DITROPAN 5 mg, oral, 2 TIMES DAILY PRN pantoprazole 40 mg tablet Commonly known as: PROTONIX 40 mg, oral, DAILY phenazopyridine 200 mg tablet Commonly known as: PYRIDIUM 200 mg, oral, 3 TIMES DAILY PRN tamsulosin 0.4 mg capsule Commonly known as: FLOMAX 0.4 mg, oral, DAILY UNABLE TO FIND Xyfexen_ a liver antibioltic XANAX 1 mg tablet Generic drug: ALPRAZolam 1 mg, oral, 3 TIMES DAILY STOP taking these medications ciprofloxacin HCl 500 mg tablet Commonly known as: CIPRO Medication Instructions: Please COMPLETE your entire course of vancomycin, even if you are feeling well. Take two doses thisevening (07/25/15) at 5:00pm and 9:00pm then four times per day for ten days, then once at 8am and once at noon on the last day. Allergies: Morphine; Tylenol; Toradol; Aspirin; Reglan; and Sulfa (sulfonamide antibiotics) Appointments Scheduled with [facility] in the Next 3 Months: These [facility] appointments have already been scheduled Aug 12, 2015 10:45 Established Patient Visit with Jesus Vaughan [facility] [address] [address] Sep 05, 2015 9:30 New Patient Visit with Micheal Moseley MD [facility] Gastroenterology [facility] (--) [address] [place] [id number] Follow-Up Appointments and Procedures Recommended to Patient: Follow-up appointments and procedures Amb Consult/Follow Up Primary Care Physician Reason for Request: Hospitalization for CVA tnederness 2/2 recent ureteral stent; C. diff colitis diagnosed during this admission; 10 days of total oral vancomycin treatment Authorizing Provider: Jay Jay Mars MD Amb Consult/Follow Up Urology Reason for Request: Follow-up hospitalization for flank pain associated with recent stent. Authorizing Provider: Jay Jay Mars MD Additional Information: Please follow-up with your primary care physician within one week of discharge. Dr. Emigdio Centeno's scheduling phone number is [phone] Please follow-up with urology within one week of discharge. The urology clinic scheduling phone number is [phone] Follow-Up Labs and Tests: None Jay Jay Mars MD Internal Medicine PGY-1 Pager #[phone] Attending Attestation: I have interviewed and examined the patient. I have discussed the case with the resident and agree with the discharge plan outlined above. Date of service: 07/25/2015 Pop Arroyo MD documented in this encounter Discharge Instructions * Medications* Jay Jay Mars MD - 07/25/2015 13:52 EDT Please COMPLETE your entire course of vancomycin, even if you are feeling well. Take two doses thisevening (07/25/15) at 5:00pm and 9:00pm then four times per day for ten days, then once at 8am and once at noon on the last day. * Appointments* Jay Jay Mars MD - 07/25/2015 13:48 EDT Please follow-up with your primary care physician within one week of discharge. Dr. Emigdio Centeno's scheduling phone number is [phone] Please follow-up with urology within one week of discharge. The urology clinic scheduling phone number is [phone] * Discharge Instr - Other Orders* Jay Jay Mars MD - 07/25/2015 14:52 EDT Please return to the the emergency room if your diarrhea returns. * Attachments The following attachments cannot be sent through Care Everywhere. * C DIF COLITIS ([facility]) * URETERAL STENT PLACEMENT : POST-OP ([facility]) documented in this encounter Medications at Time of Discharge albuterol 90 mcg/actuation inhaler Inhale 2 Puffs as directed every 4 hours as needed. 09/18/2021 ALPRAZolam (XANAX) 1 mg tablet Take 1 mg by mouth 3 times daily. 09/30/2017 cyanocobalamin 500 mcg tablet Take 1,000 mcg by mouth daily. 07/29/2015 ferrous gluconate (FERGON) 324 mg (38 mg iron) tablet Take 324 mg by mouth daily with breakfast. 04/23/2021 fluticasone (FLOVENT) 110 mcg/actuation inhaler Inhale 110 mcg as directed 2 times daily. 11/26/2019 HYDROmorphone (DILAUDID) 2 mg tablet Take 1-2 Tabs by mouth every 4 hours as needed for Pain Daily Max: 24 mg 30 Tab 0 08/14/2015 08/14/2015 LACTULOSE ORAL Take by mouth. 2014 LEVOTHYROXINE SODIUM (LEVOTHYROXINE ORAL) Take 25 mcg [...] 3 times daily as needed for Pain 15 Tab 0 07/15/2015 07/29/2015 rifAXImin (XIFAXAN) 550 mg tablet Take 550 mg by mouth 2 times daily 01/03/2019 tamsulosin (FLOMAX) 0.4 mg capsule Take 1 Cap by mouth daily 15 Cap 1 07/13/2015 05/04/2016 UNABLE TO FIND Xyfexen_ a liver antibioltic 07/29/2015 vancomycin (VANCOCIN) 125 mg capsule Take 1 Cap by mouth 4 times daily for 11 days 44 Cap 0 07/25/2015 08/05/2015 documented as of this encounter Ordered Prescriptions Prescription Sig Dispense Quantity Refills Last Filled Start Date End Date vancomycin (VANCOCIN) 125 mg capsule Take 1 Cap by mouth 4 times daily for 11 days 44 Cap 0 07/25/2015 08/05/2015 oxyCODONE (ROXICODONE) 5 mg immediate release tablet Take 0.5 Tabs by mouth every 6 hours as needed for Pain Daily Max: 10 mg 12 Tab 0 07/25/2015 08/14/2015 oxyCODONE (ROXICODONE) 5 mg immediate release tablet Take 1 Tab by mouth every 6 hours as needed for Pain Daily Max: 20 mg 12 Tab 0 07/25/2015 07/25/2015 vancomycin (VANCOCIN) 125 mg capsule Take 1 Cap by mouth 4 times daily for 7 days 28 Cap 0 07/25/2015 07/25/2015 documented in this encounter Discharge Disposition Disposition Code Departure Means Destination Home or Self Care documented in this encounter Progress Notes * Simona Brady RN - 07/25/2015 9411 EDT Nursing Discharge Note D: Patient noted with discharge orders to: Home A: Prescriptions provided to patient. Reviewed discharge instructions and prescriptions with Patient IV d/c'd. Belongings collected and sent home with patient. R: Patient verbalized understanding of discharge instructions and denied further questions. SIMONA DAY RN 07/25/2015 15:52 * OzzyBrock Kory - 07/24/2015 4787 EDT Spiritual Care Note Re: Tara Boothe : 1960, AGE: 54 y.o. Room: [place] [address] Tara Boothe who is listed as Faith has received a visit from the Spiritual Care Department on 07/24/2015. Need/Assessment: ?? Initial visit with Vaishali. ?? Vaishali was in pain and very tired. I did not sleep well at all last night. I have a hard timesleeping lately. ?? She told me about the events that brought her to this time in the hospital. She shared the fear and anxiety she felt. ?? She feels well cared for by the staff and has become more hopeful that everything will be all right in the end. ?? Vaishali feels supported by her son and [id number] with whom she lives. ?? She is a person of drew and takes comfort in prayer. Intervention: ?? Provided a supportive, listening presence for Vaishali as she spoke about the events of the lastweek. ?? Helped normalize her feelings of fear and anxiety as a part of working witth the unknown. ?? Prayers were said for her, her loved ones and care team. Outcome: ?? Vaishali requested continued support from spiritual care. Plan of Action: No Follow up necessary - Needs met Continued Family Support x Continued Support from Financial Analysis Consultant following patient Make a Referral to: Continued Support with Volunteer Visits Connect with Community Supports Ask for a consult from: Other: Visit Initiated by: Referral Time: End of Life / Comfort Care / Hospice Urgent Request - Time: Level of Visit Services Provided: Anointing of Sick x Prayer Communion Relaxation through music Assist Advanced Directives Integrative therapies Assist Decision Making Acevedo and Prayer at dying Exploration of Ethical issues Present at time of Family Support Other The Rev. Brock Preciado [facility], Financial Analysis Consultantclemente Tamayo 131 Phone [phone] Pager [phone] Spiritual Care is available 24 hours a day. Office hours are 0800 to 1700 Tuesday through Tuesday and 0830 to 1630 Tuesday and Tuesday. Interfaith and Yarsanism chaplains are available 24 hours a day. For routine consults please call and leave a message with the Spiritual Care Office ([phone]) and patients will be seen within 24 hours. Forall emergent consults page the Scientology or Interfaith on-call Financial Analysis Consultant through [facility] ([phone]). * Pop Arroyo MD - 07/24/2015 1640 EDT Daily Progress Note Admit Date: 07/18/2015 Hospital Day: LOS: 6 days Date of Service: 07/24/2015 Chief Complaint: Left flank pain, nausea, vomiting Overnight Events: -Urology following -Afebrile -Carl removed -Diarrhea continues (8 bowel movements through day today) Subjective: Ms. Boothe is feeling tired. She continues to have pasty/loose stools throughout the day. She feels defeated at times. She was upset today after a conversation with her daughter who thinksshe is dying from the C-diff. knows this is not true but is frustrated with the on going diarrhea. Nausea is under decent control with compazine/zofran. Feeling much better with carl catheter out. Pain has reduced. Vomiting episodes have minimized. She denies shortness of breath, fever, chills. cyanocobalamin 1,000 mcg DAILY enoxaparin 40 mg DAILY ferrous gluconate 324 mg BID (BREAKFAST/DINNER) fluticasone 1 Puff BID pantoprazole 40 mg DAILY tamsulosin 0.4 mg QHS vancomycin 125 mg QID albuterol 2 Puff Q4H PRN ALPRAZolam 1 mg TID PRN HYDROmorphone 6 mg Q3H PRN ondansetron 4 mg Q6H PRN Or ondansetron (PF) 4 mg Q6H PRN oxybutynin 5 mg BID PRN prochlorperazine 5 mg Q6H PRN Review of Systems: ROS: complete 10 point ROS negative unless otherwise mentioned in Subjective Objective/Physical Exam: VS: BP 118/57 mmHg Pulse 84 Temp(Src) 35.7 ??C (96.3 ??F) (Tympanic) Resp 20 Ht 165.1 cm (65) Wt 94.348 kg (208 lb) BMI 34.61 kg/m2 SpO2 95% Glucose Readings (last 8 readings): No results for input(s): GLUCOSEFINGE in the last 72 hours. I&O: Intake/Output Summary (Last 24 hours) at 07/24/15 1626 Last data filed at 07/24/15 1526 Gross per 24 hour Intake 3170 ml Output 3225 ml Net -55 ml Exam: Gen: Sitting at the edge of bed; head down, tired appearance HEENT: NCAT, sclera injected, minimally yellow PULM: CTAB, in anterior and posterior godwin COR: RRR, s1, s2, No M/R/G ABD: ND, soft, tender to palpation in RUQ; : no carl Extremities: warm and well perfused, 2+ DP pulses, no edema Skin: No rashes; bruising present in LLQ CVA: L tenderness continues Data Review: I have independently reviewed all labs and imaging in the last 24 hours Labs: Na/K/Cl/CO2: 138/4.6/100/28 (07/24 1431) BUN/Cr/glu/ALT/AST/amyl/lip: --/0.69/--/--/--/--/-- (07/24 143) C-diff: Positive Other studies: CT Chest W/Contrast (07/17/2015): Impression: 1. No evidence of pulmonary emboli 2. Pulmonary edema CT Renal Colic (07/17/2015) Impression: 1. Left ureteral stent in appropriate position. 2. No hydronephrosis. No urinary tract calculi. 3. Cirrhosis with portal hypertension and splenomegaly, as seen on recent CT. 4. Prior cholecystectomy. No biliary ductal dilatation Assessment/Plan: Mrs. Tara Boothe is a 54 year old woman with PMH of cirrhosis secondary to NAFLD, asthma, RA and recent ureteral stent placement and lithotripsy for nephrolithiasis who presents with n/v and left flank pain. Suspect tyree procedural inflammation vs UTI vs pyelo at this point with associated n/v. Tr eating as if pyelo with cipro. Now complicated by c diff colittis. Can go home once diarrhea resolved, tolerating adequate PO intake and without signs of hypovolemia. As of 07/23/15, diarrhea continues, with 4 bouts since 03:30. Left flank pain: UA concerning for possible UTI vs pyelo. Patient with baseline leukopenia and remains afebrile. Hx. Of nephrolithiasis. Likely recent procedure is contributing to pain. -remains afebrile -UCx negative 07/17/15 -Dilaudid 6mg PO Q4H PRN, adequate at this time per patient - decreasing dose interval due to groggy pt. -Urology following -Carl removed yesterday due to discomfort. -Plan to follow up with urology on 07/25 as outpatient. Will contact them as she will not be discharged before the appointment. Chest pressure: No evidence of PE. Trops negative x2. No complaints of n/v 07/23/15. Likely related to recurrent n/v, which has minimized - Follow up with cardiology as outpatient N/V: Likely related to flank pain. - Zofran 4mg PO or IV; last use with 07/17/15 - Compazine 5mg Q6H PRN; last use was on 07/21/15 - IVFs NAFLD: - home rifaximin held; will remind patient to restart upon discharge - D/C lactulose > diarrhea Pancytopenia: History of workup at [facility] per patient. Hematology + GI following there. Reportedbone marrow was normal. Current etiology likely due to liver disease and splenomegaly. - Follow counts Asthma: - continue home meds of flovent and albuterol prn -no wheeze auscultated on 07/23/15 Diarrhea: Increased with hospitalization. Has had episodes of incontinence. C- diff positive. Havingloose bowel during 07/23/15 morning -Holding lactulose -vancomycin 125mg PO QID x 10 days (on day#3) -Awaiting clinical improvement before discharge -IV fluids 1L bolus of LR on 07/24/15 Anxiety: Increased anxiety with ongoing hospitalization and new c-diff diagnosis. -home alprazolam 1mg TID PRN VTE Prophylaxis: Heparin 5000 units Q12H Discharge Plan: home when meeting milestones of resolving diarrhea, i/o balance, absent signs of hypovolemia Code: Full Benito Frankel MD 07/24/2015 16:26 Attending Attestation: I have interviewed and examined the patient. Feels weak today. Occasionally somnolent per RN. (Not on my exam) I have personally reviewed the medication list. I have independently reviewed the lab results. Repeated labs due to weakness - creatinine OK I have discussed the case with the resident and agree with the findings and plan of care above. Anyadditions in blue. - hydrate with IVF - decrease narcotics Date of service: 07/24/2015 Pop Arroyo MD * Jerilyn Whitman - 07/23/2015 1431 EDT Nutrition Diet Rx: Regular Meds: vitamin B12, Fe, protonix, vanco Wt Readings from Last 5 Encounters: 07/18/15 94.348 kg (208 lb) 07/12/15 92.987 kg (205 lb) 05/16/15 90.719 kg (200 lb) 03/24/15 98.884 kg (218 lb) 12/10/14 92.987 kg (205 lb) 07/18: A1c 5.8% A: 54 yo female w/PMHx NALD, cirrhosis, admitted with nausea/vomitting, likely r/t flank pain. N/v improved, diarrhea has increased, C diff positive noted, vanco started. Pt occupied w/other providers when attempted to interview, RD to f/u as able. Chart review shows wgt has varied somewhat over last several months, likely r/t fluid, continue to monitor. Ordering small to moderate sized meals with good sources of protein usually 2x/day, consuming all per nsg documentation. Suggest add MVM dailyto support adequate micronutrient intake. Vitamin B12 and Fe likely appropriate. Will offer clear liquid supplements with trays to support adequate protein intake. Plan: Continue diet, B12, Fe Please add MVM dailly Offer Breeze and/or gelatein at meals Encourage good PO intake Monitor intake, wgt, labs, skin, bowels RD following Jerilyn Whitman MS, RD Pager [phone] * Pop Arroyo MD - 07/23/2015 0917 EDT Daily Progress Note Admit Date: 07/18/2015 Hospital Day: LOS: 5 days Date of Service: 07/23/2015 Chief Complaint: Left flank pain, nausea, vomiting Overnight Events: -Urology following -Afebrile at last check; 96.3 -Carl is in place, draining ange urine -Diarrhea continues; four bouts since 03:30 07/23/15 Subjective: Ms. Boothe had a difficult start to the day in that her diarrhea continued in the courtesy clerk (03:30), with four total bouts since that time. Her nausea is under better control, however.Flank pain continues, but is adequately controlled at this time with dilaudid 6mg q3h PRN. She reports that she is taking in oral fluids, although she does state that nursing has been encouraging herto take in more. Vomiting episodes have minimized. She denies shortness of breath, fever, chills. cyanocobalamin 1,000 mcg DAILY enoxaparin 40 mg DAILY ferrous gluconate 324 mg BID (BREAKFAST/DINNER) fluticasone 1 Puff BID lactated ringers 1,000 mL Now pantoprazole 40 mg DAILY rifAXImin 550 mg BID tamsulosin 0.4 mg QHS vancomycin 125 mg QID albuterol 2 Puff Q4H PRN ALPRAZolam 1 mg TID PRN HYDROmorphone 6 mg Q3H PRN ondansetron 4 mg Q6H PRN Or ondansetron (PF) 4 mg Q6H PRN oxybutynin 5 mg BID PRN prochlorperazine 5 mg Q6H PRN Review of Systems: ROS: complete 10 point ROS negative unless otherwise mentioned in Subjective Objective/Physical Exam: VS: BP 121/72 mmHg Pulse 88 Temp(Src) 35.1 ??C (95.2 ??F) (Tympanic) Resp 18 Ht 165.1 cm (65) Wt 94.348 kg (208 lb) BMI 34.61 kg/m2 SpO2 99% Glucose Readings (last 8 readings): No results for input(s): GLUCOSEFINGE in the last 72 hours. I&O: Intake/Output Summary (Last 24 hours) at 07/23/15916 Last data filed at 07/23/15 0654 Gross per 24 hour Intake 1480 ml Output 1750 ml Net -270 ml Exam: Gen: Making bed upon entry into the room; tired appearance HEENT: NCAT, sclera injected, minimally yellow PULM: CTAB, in anterior and posterior godwin COR: RRR, s1, s2, No M/R/G ABD: ND, soft, ttp RUQ; : carl in place, draining ange urine Extremities: warm and well perfused, 2+ DP pulses, no edema Skin: No rashes; bruising present in LLQ CVA: L tenderness continues Data Review: I have independently reviewed all labs and imaging in the last 24 hours Labs: WBC/Hgb/Hct/Plts: 3.31/11.5/35.1/79 (07/21 718) Na/K/Cl/CO2: 138/4.4/97/30 (07/21 718) BUN/Cr/glu/ALT/AST/amyl/lip: 15/0.87/--/--/--/--/-- (07/21 718) C-diff: Positive Other studies: CT Chest W/Contrast (07/17/2015): Impression: 1. No evidence of pulmonary emboli 2. Pulmonary edema CT Renal Colic (07/17/2015) Impression: 1. Left ureteral stent in appropriate position. 2. No hydronephrosis. No urinary tract calculi. 3. Cirrhosis with portal hypertension and splenomegaly, as seen on recent CT. 4. Prior cholecystectomy. No biliary ductal dilatation Assessment/Plan: Mrs. Tara Boothe is a 54 year old woman with PMH of cirrhosis secondary to NAFLD, asthma, RA and recent ureteral stent placement and lithotripsy for nephrolithiasis who presents with n/v and left flank pain. Suspect tyree procedural inflammation vs UTI vs pyelo at this point with associated n/v. Tr eating as if pyelo with cipro. Now complicated by c diff colittis. Can go home once diarrhea resolved, tolerating adequate PO intake and without signs of hypovolemia. As of 07/23/15, diarrhea continues, with 4 bouts since 03:30. Left flank pain: UA concerning for possible UTI vs pyelo. Patient with baseline leukopenia and remains afebrile. Hx. Of nephrolithiasis. Likely recent procedure is contributing to pain. -remains afebrile at last check; 96.3 -UCx negative 07/17/15 -Dilaudid 6mg PO Q3H PRN, adequate at this time per patient -Urology following -Carl in place for decompression, plan to keep carl in place until follow up with Urology on 07/25/15 Chest pressure: No evidence of PE. Trops negative x2. No complaints of n/v 07/23/15. Likely related to recurrent n/v, which has minimized - Follow up with cardiology as outpatient N/V: Likely related to flank pain. - Zofran 4mg PO or IV; last use with 07/17/15 - Compazine 5mg Q6H PRN; last use was on 07/21/15 - IVFs NAFLD: - home rifaximin held; will remind patient to restart upon discharge - D/C lactulose > diarrhea Pancytopenia: History of workup at [facility] per patient. Hematology + GI following there. Reportedbone marrow was normal. Current etiology likely due to liver disease and splenomegaly. - Follow counts Asthma: - continue home meds of flovent and albuterol prn -no wheeze auscultated on 07/23/15 Diarrhea: Increased with hospitalization. Has had episodes of incontinence. C- diff positive. Havingloose bowel during 07/23/15 morning -Holding lactulose -vancomycin 125mg PO QID x 10 days (on day#2) -Awaiting clinical improvement before discharge -net i/o 07/23/15 +280; net since admission -[id number] Anxiety: Increased anxiety with ongoing hospitalization and new c-diff diagnosis. -home alprazolam 1mg TID PRN VTE Prophylaxis: Heparin 5000 units Q12H Discharge Plan: home when meeting milestones of resolving diarrhea, i/o balance, absent signs of hypovolemia Code: Full Jay Jay Mars MD 07/23/2015 9:17 Pager #[phone] Attending Attestation: I have interviewed and examined the patient. I have personally reviewed the medication list. I have independently reviewed the lab results. I have discussed the case with the resident and agree with the findings and plan of care above. Anyadditions in blue. Date of service: 07/23/2015 Pop Arroyo MD * Pop Arroyo MD - 07/22/2015 1512 EDT Daily Progress Note Admit Date: 07/18/2015 Hospital Day: LOS: 4 days Date of Service: 07/22/2015 Chief Complaint: Left flank pain, nausea, vomiting Overnight Events: -Urology following -Afebrile -Carl in place -Diarrhea continues (slowed overnight, increased today) Subjective: Tara reported having a great night with very few bowel movements. Her nausea is under better control. She continues to have flank pain which is somewhat controlled by medication. Diarrhea increased during the day today. She is taking plenty of fluids trying to keep up with her losses. Chest pressure has improved as the number of vomiting episodes have decreased. Denies shortness of breath, fever, chills. cyanocobalamin 1,000 mcg DAILY enoxaparin 40 mg DAILY ferrous gluconate 324 mg BID (BREAKFAST/DINNER) fluticasone 1 Puff BID metroNIDAZOLE 500 mg Q8H pantoprazole 40 mg DAILY rifAXImin 550 mg BID tamsulosin 0.4 mg QHS albuterol 2 Puff Q4H PRN ALPRAZolam 1 mg TID PRN HYDROmorphone 6 mg Q3H PRN ondansetron 4 mg Q6H PRN Or ondansetron (PF) 4 mg Q6H PRN oxybutynin 5 mg BID PRN prochlorperazine 5 mg Q6H PRN Review of Systems: ROS: complete 10 point ROS negative unless otherwise mentioned in Subjective Objective/Physical Exam: VS: BP 112/69 mmHg Pulse 88 Temp(Src) 35.2 ??C (95.4 ??F) (Tympanic) Resp 16 Ht 165.1 cm (65) Wt 94.348 kg (208 lb) BMI 34.61 kg/m2 SpO2 99% Glucose Readings (last 8 readings): No results for input(s): GLUCOSEFINGE in the last 72 hours. I&O: Intake/Output Summary (Last 24 hours) at 07/22/15 1512 Last data filed at 07/22/15 0852 Gross per 24 hour Intake 480 ml Output 3140 ml Net -2660 ml Exam: Gen: Well-nourished, Well-developed,sitting in a chair, waiting for breakfast, very sleepy. No acute distress HEENT: atraumatic, eyes are bloodshot with slight yellowing - improving, no oral lesions PULM: Clear to ascultation bilaterally, No increased work of breathing. No wheezing COR: RRR, s1, s2, No M/R/G. PMI non-palpable. ABD: soft, slightly tender in the right upper quadrant and left lower quadrant, non-distended, hernia present : carl in place Extremities: warm and well perfused, 2+ DP pulses, no edema Skin: No rashes on exam, bruising on the left lower abdomen, bruising at all injection sites (resolving) CVA: L tenderness Lines/Access: PIV Data Review: I have independently reviewed all labs and imaging in the last 24 hours Labs: WBC/Hgb/Hct/Plts: 3.31/11.5/35.1/79 (07/21 718) Na/K/Cl/CO2: 138/4.4/97/30 (07/21 718) BUN/Cr/glu/ALT/AST/amyl/lip: 15/0.87/--/--/--/--/-- (07/21 718) C-diff: Positive Other studies: CT Chest W/Contrast (07/17/2015): Impression: 1. No evidence of pulmonary emboli 2. Pulmonary edema CT Renal Colic (07/17/2015) Impression: 1. Left ureteral stent in appropriate position. 2. No hydronephrosis. No urinary tract calculi. 3. Cirrhosis with portal hypertension and splenomegaly, as seen on recent CT. 4. Prior cholecystectomy. No biliary ductal dilatation Assessment/Plan: Mrs. Tara Boothe is a 54 year old woman with PMH of cirrhosis secondary to NAFLD, asthma, RA and recent ureteral stent placement and lithotripsy for nephrolithiasis who presents with n/v and left flank pain. Suspect tyree procedural inflammation vs UTI vs pyelo at this point with associated n/v. Tr eating as if pyelo with cipro. Now complicated by c diff colittis. Can go home once diarrhea resolved and tolerating adequate PO intake. Left flank pain: UA concerning for possible UTI vs pyelo. Patient with baseline leukopenia and remains afebrile. Hx. Of nephrolithiasis. Likely recent procedure is contributing to pain. - Dilaudid 6mg PO Q3H PRN - Follow Urine Culture -Negative - Urology following, appreciate recs - Carl in place for decompression, plan to keep carl in place until follow up with Urology on 07/25 Chest pressure: No evidence of PE. Trops negative x2. Seems to be resolving and unlikely to be cardiac. Likely related to recurrent n/v. - Follow up with cardiology as outpatient N/V: Likely related to flank pain. - Zofran 4mg PO or IV - Compazine 5mg Q6H PRN - IVFs NAFLD: - continue home rifaximin - D/C lactulose > diarrhea Pancytopenia: History of workup at [facility] per patient. Hematology + GI following there. Reportedbone marrow was normal. Current etiology likely due to liver disease and splenomegaly. - Follow counts Asthma: wheezing on exam - continue home meds of flovent and albuterol prn Diarrhea: Increased with hospitalization. Has had episodes of incontinence. C- diff positive. Havingloose bowel during 07/22 day. -Holding lactulose -Metronidazole 500mg PO Q8H (day 1 of 10) May consider oral vancomycin if diarrhea does not improve -Awaiting clinical improvement before discharge Anxiety: Increased anxiety with ongoing hospitalization and new c-diff diagnosis. -home alprazolam 1mg TID PRN VTE Prophylaxis: Heparin 5000 units Q12H Discharge Plan: home when clinically improved (diarrhea) - family would like this resolved before sending her home Code: Full Benito Frankel MD 07/22/2015 15:12 Attending Attestation: I have interviewed and examined the patient. I have personally reviewed the medication list. I have independently reviewed the lab results. I have discussed the case with the resident and agree with the findings and plan of care above. Anyadditions in blue. She is now off her ciprofloxacin and despite this is having more episodes of diarrhea. Will change from flagyl to oral vancomycin. Date of service: 07/22/2015 Pop Arroyo MD * Pop Arroyo MD - 07/21/2015 0825 EDT Daily Progress Note Admit Date: 07/18/2015 Hospital Day: LOS: 3 days Date of Service: 07/21/2015 Chief Complaint: Left flank pain, nausea, vomiting Overnight Events: -Urology following -Afebrile -Carl in place -Diarrhea continues Subjective: Tara has noted an increase in her diarrhea. She has been going very frequently overnight and is frustrated with the frequency. She understands there is an infection and the antibioticsshould treat it. Tara continues to have nausea and rare episodes of vomiting/dry heaving at times. Zofran had worked if timed right around meals. She reports serious reaction to Reglan in the pastbut has tolerated compazine well. Will focus on diarrhea, nausea and vomiting today. Chest pressurehas improved as the number of vomiting episodes have decreased. Denies shortness of breath, fever, chills. ciprofloxacin HCl 500 mg BID cyanocobalamin 1,000 mcg DAILY enoxaparin 40 mg DAILY ferrous gluconate 324 mg BID (BREAKFAST/DINNER) fluticasone 1 Puff BID metroNIDAZOLE 500 mg Q8H pantoprazole 40 mg DAILY rifAXImin 550 mg BID tamsulosin 0.4 mg QHS albuterol 2 Puff Q4H PRN ALPRAZolam 1 mg TID PRN HYDROmorphone 6 mg Q4H PRN ondansetron 4-8 mg Q6H PRN Or ondansetron (PF) 4-8 mg Q6H PRN oxybutynin 5 mg BID PRN Review of Systems: ROS: complete 10 point ROS negative unless otherwise mentioned in Subjective Objective/Physical Exam: VS: BP 113/67 mmHg Pulse 78 Temp(Src) 36 ??C (96.8 ??F) (Tympanic) Resp 16 Ht 165.1 cm (65) Wt 94.348 kg (208 lb) BMI 34.61 kg/m2 SpO2 96% Glucose Readings (last 8 readings): No results for input(s): GLUCOSEFINGE in the last 72 hours. I&O: Intake/Output Summary (Last 24 hours) at 07/21/15 0825 Last data filed at 07/21/15 0548 Gross per 24 hour Intake 680 ml Output 2500 ml Net -1820 ml Exam: Gen: Well-nourished, Well-developed,sitting in a chair, waiting for breakfast, very sleepy. No acute distress HEENT: atraumatic, eyes are bloodshot with slight yellowing - improving, no oral lesions PULM: Clear to ascultation bilaterally, No increased work of breathing. No wheezing COR: RRR, s1, s2, No M/R/G. PMI non-palpable. ABD: soft, slightly tender in the right upper quadrant and left lower quadrant, non-distended, hernia present : carl in place Extremities: warm and well perfused, 2+ DP pulses, no edema Skin: No rashes on exam, bruising on the left lower abdomen, bruising at all injection sites CVA: L tenderness Lines/Access: PIV Data Review: I have independently reviewed all labs and imaging in the last 24 hours Labs: WBC/Hgb/Hct/Plts: 3.31/11.5/35.1/79 (07/21 718) Na/K/Cl/CO2: 138/4.4/97/30 (07/21 718) BUN/Cr/glu/ALT/AST/amyl/lip: 15/0.87/--/--/--/--/-- (07/21 718) C-diff: Positive Other studies: CT Chest W/Contrast (07/17/2015): Impression: 1. No evidence of pulmonary emboli 2. Pulmonary edema CT Renal Colic (07/17/2015) Impression: 1. Left ureteral stent in appropriate position. 2. No hydronephrosis. No urinary tract calculi. 3. Cirrhosis with portal hypertension and splenomegaly, as seen on recent CT. 4. Prior cholecystectomy. No biliary ductal dilatation Assessment/Plan: Mrs. Tara Boothe is a 54 year old woman with PMH of cirrhosis secondary to NAFLD, asthma, RA and recent ureteral stent placement and lithotripsy for nephrolithiasis who presents with n/v and left flank pain. Suspect tyree procedural inflammation vs UTI vs pyelo at this point with associated n/v. Tr eating as if pyelo with cipro. Now complicated by c diff colittis. Can go home once diarrhea resolved and tolerating adequate PO intake Left flank pain: UA concerning for possible UTI vs pyelo. Patient with baseline leukopenia and remains afebrile. Hx. Of nephrolithiasis. Likely recent procedure is contributing to pain. - Continue Ciprofloxacin (Day 7 of 7) - IVFs - Dilaudid 6mg PO Q3H PRN - Follow Urine Culture - Urology following, appreciate recs - Carl in place for decompression, plan to keep carl in place until follow up with Urology Chest pressure: No evidence of PE. Trops negative x2. Seems to be resolving and unlikely to be cardiac. Likely related to recurrent n/v. - Follow up with cardiology as outpatient N/V: Likely related to flank pain. - Zofran 4mg PO or IV - Compazine 5mg Q6H PRN - IVFs NAFLD: - continue home rifaximin - D/C lactulose > diarrhea Pancytopenia: History of workup at [facility] per patient. Hematology + GI following there. Reportedbone marrow was normal. Current etiology likely due to liver disease and splenomegaly. - Follow counts Asthma: wheezing on exam - continue home meds of flovent and albuterol prn Diarrhea: Increased with hospitalization. Has had episodes of incontinence. C- diff positive. Havingloose bowel movements every ~2 hours. -Holding lactulose -Metronidazole 500mg PO Q8H- will need 7 days beyond last dose of cipro -Awaiting clinical improvement before discharge Anxiety: Increased anxiety with ongoing hospitalization and new c-diff diagnosis. -home alprazolam 1mg TID PRN VTE Prophylaxis: Heparin 5000 units Q12H Discharge Plan: home when clinically improved (diarrhea) Code: Full Benito Frankel MD 07/21/2015 8:25 Attending Attestation: I have interviewed and examined the patient. I have personally reviewed the medication list. I have independently reviewed the lab results. I have discussed the case with the resident and agree with the findings and plan of care above. Anyadditions in blue. If her diarrhea fails to improve after completion of her antibiotic therapy for her pyelonephritis will plan to change from flagyl to oral vanc. Also see home situation a barrier to her discharge - her family has young children and have told her they want her diarrhea resolved before she comes to live with them. Date of service: 07/21/2015 Pop Arroyo MD * Zara Watts - 07/21/2015 0648 EDT Internal Medicine Progress Note Admit date: 07/18/2015 Date of Service: 07/21/2015 LOS: 4 CC: Left-sided flank pain, N/V w chest pain and SOB, currently w C. Diff 24 hr events: 1. Pt experiencing distress regarding recent C.Diff dx and subsequent isolation precautions-- nursing staff brought her for an evening walk around the [place]ang w gown/glove/new socks to decrease anxiety;she also received 1mg alprazolam PRN at this time 2. Pt consistently receiving PRN doses of dilaudid 6mg/Q4h for pain-- most recently complains of arthritic pain due to isolation restrictions that prevent her from ambulating as often as she'd like 3. Transitioning from IV zofran PRN before mealtime for nausea to PO compazine-- will f/u how pt tolerates med change 4. Increased frequency in diarrhea w no change in stool consistency Subjective: Subjective: Ms. Boothe reports increased frequency in diarrhea, having awoken x4 during nighttime due to BMs; she has adjusted to the isolation precautions and reports feeling less anxiety due to C. Diff dx; her appetite continues to improve since admission; her main concern is still concerning d/c home. ROS: positive-- vomiting x1 Meds: 1. Cipro, 500mg/2xd PO, UTI/pyelo-- x8 doses to date 2. Metronidazole, 500mg/Q8h PO, C. Diff-- x5 doses to date 3. Lovenox, 40mg subq, DVT PPx-- x1 dose at 8am, 07/21/15; *NOTE-- switched from heparin subq to decrease frequency of injections 4. Compazine, 5mg PO, nausea-- not yet taken; *NOTE-- switched from IV zofran PRN to transition pt to d/c home, last IV zofran at 1802 07/20/15 5. Alprazolam, 1mg/PRN PO, anxiety-- consistently taking x3 doses daily 6. Dilaudid, 6mg/Q4h PO, pain management-- consistently taking PRN, last dose 0751 MAR Reviewed Current Facility-Administered Medications Medication Route Frequency ??? albuterol inhaler 2 Puff inhalation Q4H PRN ??? ALPRAZolam (XANAX) tablet 1 mg oral TID PRN ??? ciprofloxacin HCl (CIPRO) tablet 500 mg oral BID ??? cyanocobalamin tablet 1,000 mcg oral DAILY ??? enoxaparin (LOVENOX) injection 40 mg subcutaneous DAILY ??? ferrous gluconate (FERGON) tablet 324 mg oral BID (BREAKFAST/DINNER) ??? fluticasone (FLOVENT) 110 mcg/actuation inhaler 1 Puff inhalation BID ??? HYDROmorphone (DILAUDID) tablet 6 mg oral Q3H PRN ??? metroNIDAZOLE (FLAGYL) tablet 500 mg oral Q8H ??? ondansetron (ZOFRAN-ODT) disintegrating tablet 4 mg oral Q6H PRN Or ??? ondansetron (PF) (ZOFRAN) injection 4 mg intravenous Q6H PRN ??? oxybutynin (DITROPAN) tablet 5 mg oral BID PRN ??? pantoprazole (PROTONIX) tablet 40 mg oral DAILY ??? prochlorperazine (COMPAZINE) tablet 5 mg oral Q6H PRN ??? rifAXImin (XIFAXAN) tablet 550 mg oral BID ??? tamsulosin (FLOMAX) capsule 0.4 mg oral QHS Objective: BP 118/55 mmHg Pulse 78 Temp(Src) 35.8 ??C (96.4 ??F) (Tympanic) Resp 16 Ht 165.1 cm (65) Wt 94.348 kg (208 lb) BMI 34.61 kg/m2 SpO2 94% on RA I/O 24 hrs: I-- PO, 680cc; O-- FC, 2,700cc + x3 stools; Net I/O-- (-)2,020 UOP: 0.89cc/kg/hr Physical Exam: General: Alert, aware, not in acute distress HEENT: Atraumatic/normocephalic, MMM, ERIS, subconjunctival hemorrhages b/l improving since admission CV: Regular rate & rhythm, normal S1 & S2, no rubs, murmurs, or gallops appreciated Resp: Clear to auscultation bilaterally, no wheezes or rhonchi appreciated Abd: +BS, soft, non-distended, pt asked to not undergo abdominal palpation due to discomfort Ext: WWP, 2+symmetric DPPs, no edema bilaterally, calves not tender to palpation bilaterally Labs: CBC: Lab Results Component Value Date WBC 3.31* 07/21/2015 RBC 4.06 07/21/2015 HGB 11.5* 07/21/2015 HCT 35.1 07/21/2015 MCV 86 07/21/2015 MCH 28.3 07/21/2015 MCHC 32.8 07/21/2015 PLT 79* 07/21/2015 NEUTROABS 2.39 07/21/2015 SEDRATE 19 06/17/2015 BMP: Lab Results Component Value Date NA 138 07/21/2015 K 4.4 07/21/2015 CL 97 07/21/2015 CO2 30 07/21/2015 BUN 15 07/21/2015 CREATININE 0.87 07/21/2015 GLUCOSEFINGE 47* 06/18/2015 CALCIUM 9.0 05/16/2015 MG 1.9 07/21/2015 LABALBU 3.4 07/17/2015 Coagulation: Lab Results Component Value Date PROTIME 13.5* 07/12/2015 INR 1.2* 07/12/2015 PTT 34 07/12/2015 Imaging: Assessment: Tara Boothe is a 54 y.o. female with a h/o recent ureteral stent placement and lithotripsy for nephrolithiasis, as well as treatment w cipro for possible pyelonephritis w subsequent development of C. Diff admitted for worsening left- sided flank pain along w chest pain and SOB; currently being treated for C.Diff w PO metronidazole w continuation of cipro for infection, along w dilaudid PRN for pain management and transitioning to PO compazine for nausea; will be d/c home w resolution of diarrhea while continuing PO metronidazole x7d post completion of cipro abx, w f/u in outpt setting wboth urology and cardiology. Plan: 1. C.Diff--cont diarrhea and recent ciprofloxacin intake warranted stool PCR w subsequent detectionof pathogenic spores -cont tx w metronidazole 500mg/Q8h; pt has received x5 doses to date -monitor changes in stool consistency 2. N/V-- continuous since admission; pt reports improvement w IV zofran prior to mealtime -transition pt to oral compazine, as tolerated -suspicion that cont nausea may be due to frequency of dilaudid pain medication 3. Left-sided flank pain-- continuous since admission; ddx includes post- procedural pain vs UTI vs pyelonephritis; pt requiring pain management Q4h; UA results from 07/17/15 evidence hematuria consistent w recent nephrolithiasis as well as positive for nitrites suggesting presence of bacteria -cont tx w ciprofloxacin 500mg/2xd for suspected ; pt has received x8 doses to date -cont to monitor pain level, I/O, inspect FC contents for gross hematuria and clots 4. Chest pain-- pt EKG 07/17/15 shows normal sinus rhythm w sinus arrythmia-- pt scheduled for cardio f/u outpt; pain likely associated w episodes of vomiting and dry heaving -cont to monitor pain and discomfort 5. Asthma-- present since childhood; pt current smoker; symptoms relieved w albuterol inhaler PRN -encourage pt use of incentive spirometry -monitor wheezing evidence on PE w daily lung auscultation 6. NAFLD-- current LFTs w/i normal range; PE shows positive scleral icterus -cont home rifaximin -d/c lactulose due to diarrhea 7. Pancytopenia--hx w/u at [facility] per pt, reports normal bone marrow biopsy; currently etiology likely due to liver disease and splenomegaly; CBC trends since admission showing improvement (admission until most recent value)-- Hbg/Hct 10.8-11.5/32.4-35.1; WBC 1.94-3.31; PLT ct 60-79 -monitor CBC trends -order electrolyte profile -consider tranfusion if Hgb <7 8. VTE prophylaxis-- pt transitioning from subq heparin 5,000cc/Q12h to subq lovenox 40mg/x1d -encourage pt ambulation FEN: normal diet PPX: DVT--lovenox 40mg/x1d subq Code status: Full code Disposition: Pt concerned over recent C.Diff dx and timeframe of d/c home; otherwise pt is pleasantand happy w level of care she's receiving Consults: cont w Urology; pt scheduled w cardio outpt Zara Watts MSIII 07/21/2015 17:25 * Wild Miller MD - 07/20/2015 0649 EDT Daily Progress Note Admit Date: 07/18/2015 Hospital Day: LOS: 2 days Date of Service: 07/20/2015 Chief Complaint: Left flank pain, nausea, vomiting Overnight Events: -Urology following -Afebrile -C-diff positive overnight, started on metronidazole -Carl in place -Flank pain increased overnight, required extra dose of oral dilaudid Subjective: Tara was very concerned today about c-diff diagnosis and not going home. Diarrhea isstill present but she thinks this has slowed since stopping lactulose. She notes her anxiety is increased and she is very worried about passing this to others. Her pain was very well controlled this morning. Appetite is unchanged. Nausea is under control with the zofran. ciprofloxacin HCl 500 mg BID cyanocobalamin 1,000 mcg DAILY ferrous gluconate 324 mg BID (BREAKFAST/DINNER) fluticasone 1 Puff BID heparin 5,000 Units Q12H metroNIDAZOLE 500 mg Q8H pantoprazole 40 mg DAILY rifAXImin 550 mg BID tamsulosin 0.4 mg QHS albuterol 2 Puff Q4H PRN ALPRAZolam 1 mg TID PRN HYDROmorphone 6 mg Q4H PRN ondansetron (PF) 4 mg Q4H PRN Or ondansetron 4 mg Q4H PRN oxybutynin 5 mg BID PRN Review of Systems: ROS: complete 10 point ROS negative unless otherwise mentioned in Subjective Objective/Physical Exam: VS: BP 119/59 mmHg Pulse 75 Temp(Src) 36.3 ??C (97.3 ??F) (Tympanic) Resp 18 Ht 165.1 cm (65) Wt 94.348 kg (208 lb) BMI 34.61 kg/m2 SpO2 95% Glucose Readings (last 8 readings): No results for input(s): GLUCOSEFINGE in the last 72 hours. I&O: Intake/Output Summary (Last 24 hours) at 07/20/15 0662 Last data filed at 07/20/15 0400 Gross per 24 hour Intake 600 ml Output 2000 ml Net -1400 ml Exam: Gen: Well-nourished, Well-developed,sitting in a chair, waiting for breakfast, very sleepy. No acute distress HEENT: atraumatic, eyes are bloodshot with slight yellowing - improving, no oral lesions PULM: Clear to ascultation bilaterally, No increased work of breathing. COR: RRR, s1, s2, No M/R/G. PMI non-palpable. ABD: soft, slightly tender in the right upper quadrant and left lower quadrant, non-distended, hernia present : carl in place Extremities: warm and well perfused, 2+ DP pulses, no edema Skin: No rashes on exam, bruising on the left lower abdomen CVA: L tenderness Lines/Access: PIV Data Review: I have independently reviewed all labs and imaging in the last 24 hours Labs: WBC/Hgb/Hct/Plts: 2.05/10.6/32.2/70 (07/19 715) Na/K/Cl/CO2: 137/4.1/98/31 (07/19 07) BUN/Cr/glu/ALT/AST/amyl/lip: 4/0.80/--//24/--/-- (07/18 07) C-diff: Positive Other studies: CT Chest W/Contrast (07/17/2015): Impression: 1. No evidence of pulmonary emboli 2. Pulmonary edema CT Renal Colic (07/17/2015) Impression: 1. Left ureteral stent in appropriate position. 2. No hydronephrosis. No urinary tract calculi. 3. Cirrhosis with portal hypertension and splenomegaly, as seen on recent CT. 4. Prior cholecystectomy. No biliary ductal dilatation Assessment/Plan: Mrs. Tara Boothe is a 54 year old woman with PMH of cirrhosis secondary to NAFLD, asthma, RA and recent ureteral stent placement and lithotripsy for nephrolithiasis who presents with n/v and left flank pain. Suspect tyree procedural inflammation vs UTI vs pyelo at this point with associated n/v. Tr eating as if pyelo with cipro. Now complicated by c diff colittis. Can go home once diarrhea resolved Left flank pain: UA concerning for possible UTI vs pyelo. Patient with baseline leukopenia and remains afebrile. Likely recent procedure is contributing to pain. - Continue Ciprofloxacin (for now, pending cultures) until outpatient follow up with Urology on spoke with Urology attending who recommended 7 day total course cipro - IVFs - Dilaudid 6mg PO Q4H PRN - Follow Urine Culture - Urology following, appreciate recs - Carl in place for decompression, plan to keep carl in place until follow up with Urology Chest pressure: No evidence of PE. Trops negative x2. Seems to be resolving and unlikely to be cardiac. Likely related to recurrent n/v. - Follow up with cardiology as outpatient N/V: Appears to be resolving. Likely related to flank pain. - Zofran 4mg PO or IV - IVFs NAFLD: - continue home rifaximin - D/C lactulose > diarrhea Pancytopenia: History of workup at [facility] per patient. Hematology + GI following there. Reportedbone marrow was normal. Current etiology likely due to liver disease and splenomegaly. - Follow counts Asthma: wheezing on exam - continue home meds of flovent and albuterol prn Diarrhea: Increased with hospitalization. Has had episodes of incontinence. C- diff positive. -Holding lactulose -Metronidazole 500mg PO Q8H (day 1 of 14) will need 7 days beyond last dose of cipro -Awaiting clinical improvement before discharge Anxiety: Increased anxiety with ongoing hospitalization and new c-diff diagnosis. -home alprazolam 1mg TID PRN VTE Prophylaxis: Heparin 5000 units Q12H Discharge Plan: home when clinically improved (diarrhea) Code: Full Benito Frankel MD 07/20/2015 6:52 I have interviewed and examined the patient. I agree with findings and plan of care as documented by the resident. Additions and changes in bolded orange italics. Cruz to assume care tomorrow Wild Miller MD * Zara Watts - 07/20/2015 0545 EDT Internal Medicine Progress Note Admit date: 07/18/2015 Date of Service: 07/20/2015 LOS: 3 CC: N/V w left-sided flank pain, chest pain and SOB 24 hr events: *pt having diarrhea-- C.Diff positive, pt currently on precautions and tx w oral metronidazole 500mg Q8h* 1. Pt c/o increased pain in afternoon / despite regimen of 6 mg PO dilaudid. Stated tolerable level 03/30. Pt requested IV dilaudid. 2. She tolerated her breakfast poorly and had an episode of dry heaving after-- before lunch administered Zofran IV (instead of usual PO per doctor's request). Pt tolerated her lunch well. She said she took a full hour to eat it. No dry heaving or emesis since. 3. Developed some diarrhea yesterday evening that has been keeping her up at night. Fatigued and still with minimal appetite. Complaining of arm pain 2/2 ecchymoses from IV sticks. 4. I/O via carl catheter: Data collected from 07/19: I--1,130cc per PO; O-- 1,375cc per FC (should include stool x3) UOP: 1,375 cc/24 hours, 0.608cc/kg/hr Subjective: Subjective: Ms. Boothe reports feeling distress over recent C. Diff dx and the necessary isolation precautions--I feel like a leper-- she also expresses concerns over her families risk of infection, especiallyb/c both her son and grandson paid her a visit yesterday; pt reports tolerating meals better w prior dose of IV zofran; diarrhea is still constant; nausea waxes/wanes; current pain level reported 0/10 -- dilaudid 6mg PO administered 0140; her appetite has improved slightly since admission; pt reports chills but feels better with extra blankets; pt reports not getting adequate sleep due to anxiety level; she is most concerned about getting home margarito ROS positive for nausea, vomiting, chills, easy bruising, SOB; negative for fever, muscle pain Meds: MAR Reviewed Current Facility-Administered Medications Medication Route Frequency ??? albuterol inhaler 2 Puff inhalation Q4H PRN ??? ALPRAZolam (XANAX) tablet 1 mg oral TID PRN ??? ciprofloxacin HCl (CIPRO) tablet 500 mg oral BID ??? cyanocobalamin tablet 1,000 mcg oral DAILY ??? ferrous gluconate (FERGON) tablet 324 mg oral BID (BREAKFAST/DINNER) ??? fluticasone (FLOVENT) 110 mcg/actuation inhaler 1 Puff inhalation BID ??? heparin injection 5,000 Units subcutaneous Q12H ??? HYDROmorphone (DILAUDID) tablet 6 mg oral Q4H PRN ??? metroNIDAZOLE (FLAGYL) tablet 500 mg oral Q8H ??? ondansetron (PF) (ZOFRAN) injection 4 mg intravenous Q4H PRN Or ??? ondansetron (ZOFRAN-ODT) disintegrating tablet 4 mg oral Q4H PRN ??? oxybutynin (DITROPAN) tablet 5 mg oral BID PRN ??? pantoprazole (PROTONIX) tablet 40 mg oral DAILY ??? rifAXImin (XIFAXAN) tablet 550 mg oral BID ??? tamsulosin (FLOMAX) capsule 0.4 mg oral QHS Objective: BP 119/59 mmHg Pulse 75 Temp(Src) 36.3 ??C (97.3 ??F) (Tympanic) Resp 18 Ht 165.1 cm (65) Wt 94.348 kg (208 lb) BMI 34.61 kg/m2 SpO2 95% I/O 24 hrs: Data collected from 07/19: I--1,130cc per PO; O-- 1,375cc per FC (should include stool x3) UOP: 1,375 cc/24 hours, 0.608cc/kg/hr Physical Exam: General: Alert, aware, not in acute distress HEENT: Atraumatic/normocephalic, MMM; b/l scleral icterus and subconjunctival hemorrhage; tender cyst located on left cheek/neck-- evaluated by ENT, scheduled for excision CV: Regular rate & rhythm, normal S1 & S2, no rubs, murmurs, or gallops appreciated Resp: Clear to auscultation bilaterally, slight wheezing heard in left apex; no rhonchi appreciated Abd: +BS, soft, distended, tender to palpation, no rebound, no guarding; multiple ecchymoses appreciated in R/LLQ--pt reports due to heparin injection site Ext: WWP, 2+symmetric DPPs, no edema bilaterally, calves not tender to palpation bilaterally; evidence of large ecchymosis at needle stick sites b/l in UE Labs: CBC: Lab Results Component Value Date WBC 2.05* 07/19/2015 RBC 3.75* 07/19/2015 HGB 10.6* 07/19/2015 HCT 32.2* 07/19/2015 MCV 86 07/19/2015 MCH 28.3 07/19/2015 MCHC 33.0 07/19/2015 PLT 70* 07/19/2015 NEUTROABS 1.25* 07/17/2015 SEDRATE 19 06/17/2015 BMP: Lab Results Component Value Date NA 137 07/19/2015 K 4.1 07/19/2015 CL 98 07/19/2015 CO2 31 07/19/2015 BUN 4* 07/18/2015 CREATININE 0.80 07/18/2015 GLUCOSEFINGE 47* 06/18/2015 CALCIUM 9.0 05/16/2015 MG 1.7 07/17/2015 LABALBU 3.4 07/17/2015 Coagulation: Lab Results Component Value Date PROTIME 13.5* 07/12/2015 INR 1.2* 07/12/2015 PTT 34 07/12/2015 Imagin07/18/15-- CT Renal colic: No hydronephrosis. No urinary tract calculi 07/18/15-- CT Chest w contrast: No evidence PE; evidence of pulm edema 07/17/15-- CXR PA/Lateral: LLL consolidation concerning for possible pneumonia; possible pulm edema 07/15/15-- Retrograde Urogram: f/u of cystoscopy with left ureteroscopy, laser lithotripy 07/12/15-- 6mm stone in the distal left ureter resulting in a mild degree of hydroureteronephrosis Assessment: Tara Boothe is a 54 y.o. female with a h/o CIRRHOSIS secondary to NAFLD; also asthma, arthritis, and RECENT URETERAL STENT PLACEMENT AND LITHOTRIPSY FOR NEPHROLITHIASIS, admitted for chest pain, SOB and left flank pain. Recent C.Diff detection w pt on precautions, tx w oral metronidazole; N/V improving w IV zofran prior to meals; pain managed w dilaudid 6mg/4h Plan: 1. C.Diff--cont diarrhea and recent ciprofloxacin intake warranted stool PCR w subsequent detectionof pathogenic spores -cont tx w metronidazole 500mg/Q8h; [place] [address]/20/15 -monitor changes in stool consistency 2. N/V-- continuous since admission; pt reports improvement w IV zofran prior to mealtime -cont IV zofran administration prior to meals -progression to oral zofran as tolerated by pt -suspicion that cont nausea may be due to frequency of dilaudid pain medication 3. Left-sided flank pain-- continuous since admission; ddx includes post- procedural pain vs UTI vs pyelonephritis; pt requiring pain management Q4h; UA results from 07/17/15 evidence hematuria consistent w recent nephrolithiasis as well as positive for nitrites suggesting presence of bacteria -initially tx w ciprofloxacin but d/c since C.Diff dx -cont to monitor pain level, I/O, inspect FC contents for gross hematuria and clots 4. Chest pain-- pt EKG 07/17/15 shows normal sinus rhythm w sinus arrythmia-- pt scheduled for cardio f/u outpt -cont to monitor pain and discomfort 5. Asthma-- present since childhood; pt current smoker; symptoms relieved w albuterol inhaler PRN -encourage pt use of incentive spirometry -monitor wheezing evidence on PE w daily lung auscultation 6. NAFLD-- current LFTs w/i normal range; PE shows positive scleral icterus -cont home rifaximin -d/c lactulose due to diarrhea 7. Pancytopenia--hx w/u at [facility] per pt, reports normal bone marrow biopsy; currently etiology likely due to liver disease and splenomegaly; CBC trends since admission showing improvement (admission until most recent value)-- Hbg/Hct 10.8-10.6/32.4-32.2; WBC 1.94-2.05; PLT ct 60-74 -monitor CBC trends -consider tranfusion if Hgb <7 8. VTE prophylaxis-- pt receiving subq heparin 5,000cc/Q12h -encourage pt ambulation FEN: normal diet PPX: DVT--heparin subq 5,000cc/Q12h Code status: Full code Disposition: Pt concerned over recent C.Diff dx and timeframe of d/c home; otherwise pt Consults: cont w Urology; pt scheduled w cardio outpt Zara Watts [facility] 07/20/2015 5:46 * Andrey Evans RN - 07/20/2015 0543 EDT [facility] was unavailable from 0230 to 0500. All [facility] clinical notes for this period were written on paper and will be scanned into [facility] post discharge. * Wild Miller MD - 07/19/2015 0858 EDT Daily Progress Note Admit Date: 07/18/2015 Hospital Day: LOS: 1 day Date of Service: 07/19/2015 Chief Complaint: Left flank pain, nausea, vomiting Overnight Events: -Urology following -Afebrile -Nausea and vomiting are still happening, Zofran before meals helps -Urinary retention, carl now in place Subjective: Tara is still having pain in her left flank. She feels that her pain is still fairlyintense and the dilaudid helps to take the edge off but she is still in pain. Nausea and vomiting have been present occassionally and the medications have been helping. She does not think she will have a ride available today and feels that she would be ready to go home tomorrow. Feels better today overall but still does not feel ready to leave. Is very concerned about her home status and the ability to care for her carl catheter. She still thinks she has some chest pressure at a low level (improving). Shortness of breath has improved and she has required much less oxygen that previously. Sheis concerned about diarrhea and episodes of incontinence. ciprofloxacin HCl 500 mg BID cyanocobalamin 1,000 mcg DAILY ferrous gluconate 324 mg BID (BREAKFAST/DINNER) fluticasone 1 Puff BID heparin 5,000 Units Q12H pantoprazole 40 mg DAILY rifAXImin 550 mg BID tamsulosin 0.4 mg QHS albuterol 2 Puff Q4H PRN ALPRAZolam 1 mg TID PRN HYDROmorphone 6 mg Q4H PRN ondansetron (PF) 4 mg Q4H PRN Or ondansetron 4 mg Q4H PRN oxybutynin 5 mg BID PRN Review of Systems: ROS: complete 10 point ROS negative unless otherwise mentioned in Subjective Objective/Physical Exam: VS: BP 119/67 mmHg Pulse 68 Temp(Src) 35.8 ??C (96.4 ??F) (Tympanic) Resp 18 Ht 165.1 cm (65) Wt 94.348 kg (208 lb) BMI 34.61 kg/m2 SpO2 94% Glucose Readings (last 8 readings): No results for input(s): GLUCOSEFINGE in the last 72 hours. I&O: Intake/Output Summary (Last 24 hours) at 07/19/15 0858 Last data filed at 07/19/15 0511 Gross per 24 hour Intake 1850 ml Output 1775 ml Net 75 ml Exam: Gen: Well-nourished, Well-developed,sitting in a chair, waiting for breakfast. No acute distress HEENT: atraumatic, eyes are bloodshot with slight yellowing - improved, no oral lesions PULM: Clear to ascultation bilaterally, No increased work of breathing. COR: RRR, s1, s2, No M/R/G. PMI non-palpable. ABD: soft, slightly tender in the right upper quadrant and left lower quadrant, non-distended, hernia present : carl in place Extremities: warm and well perfused, 2+ DP pulses, no edema Skin: No rashes on exam, bruising on the left lower abdomen Lines/Access: PIV Data Review: I have independently reviewed all labs and imaging in the last 24 hours Labs: WBC/Hgb/Hct/Plts: 2.05/10.6/32.2/70 (07/19 715) Na/K/Cl/CO2: 137/4.1/98/31 (07/19 715) BUN/Cr/glu/ALT/AST/amyl/lip: 4/0.80/--/22/24/--/-- (07/18 701) Other studies: CT Chest W/Contrast (07/17/2015): Impression: 1. No evidence of pulmonary emboli 2. Pulmonary edema CT Renal Colic (07/17/2015) Impression: 1. Left ureteral stent in appropriate position. 2. No hydronephrosis. No urinary tract calculi. 3. Cirrhosis with portal hypertension and splenomegaly, as seen on recent CT. 4. Prior cholecystectomy. No biliary ductal dilatation Assessment/Plan: Mrs. Tara Boothe is a 54 year old woman with PMH of cirrhosis secondary to NAFLD, asthma, RA and recent ureteral stent placement and lithotripsy for nephrolithiasis who presents with n/v and left flank pain. Suspect tyree procedural inflammation vs UTI vs pyelo at this point with associated n/v. Left flank pain: UA concerning for possible UTI vs pyelo. Patient with baseline leukopenia and remains afebrile. Likely recent procedure is contributing to pain. - Continue Ciprofloxacin (for now, pending cultures) until outpatient follow up with Urology on 07/25 - IVFs - Dilaudid 6mg PO Q4H PRN - Follow Urine Culture - Urology following, appreciate recs - Carl in place for decompression, plan to keep carl in place until follow up with Urology Chest pressure: No evidence of PE. Trops negative x2. Seems to be resolving and unlikely to be cardiac. Likely related to recurrent n/v. - Follow up with cardiology as outpatient N/V: Appears to be resolving. Likely related to flank pain. - Zofran 4mg PO or IV - IVFs NAFLD: - continue home rifaximin - D/C lactulose > diarrhea Pancytopenia: History of workup at [facility] per patient. Hematology + GI following there. Reportedbone marrow was normal. Current etiology likely due to liver disease and splenomegaly. - Follow counts Asthma: wheezing on exam - continue home meds of flovent and albuterol prn Diarrhea: Increased with hospitalization. Has had episodes of incontinence. May be related to lactulose dosing increased in the hospital (not taking as much at home) or to recent antibiotics. -holding lactulose -monitor for resolution - check c diff VTE Prophylaxis: Heparin 5000 units Q12H Discharge Plan: Likely home before Tuesday (07/21) with improvement in symptoms Code: Full Benito Frankel MD 07/19/2015 8:58 I have interviewed and examined the patient. I agree with findings and plan of care as documented by the resident. Additions and changes in bolded orange italics. Wild Miller MD * Kenia Bowen MD - 07/19/2015 0857 EDT Urology Progress Note Chief complaint: chest pressure, nausea, flank pain 24 hour events: carl placed for retention Subjective: Continues to have left flank pain and nausea but both are improved today. Developed some diarrhea yesterday evening that has been keeping her up at night. Fatigued and still with minimal appetite. Complaining of arm pain 2/2 ecchymoses from IV sticks. ROS as above. All others negative. Objective: Blood pressure 119/67, pulse 68, temperature 35.8 ??C (96.4 ??F), temperature source Tympanic, resp. rate 18, height 165.1 cm (65), weight 94.348 kg (208 lb), SpO2 94 %. Intake/Output Summary (Last 24 hours) at 07/19/15 0857 Last data filed at 07/19/15 0511 Gross per 24 hour Intake 1850 ml Output 1775 ml Net 75 ml Exam: Gen: NAD CV: RRR no m/r/g Resp: CTAB Abdominal: Soft, nontender Back: L CVA tenderness : no carl Skin: multiple ecchymoses on upper extremities bilaterally CBC pending this AM BMP Recent Labs 07/17/15 1328 07/17/15 1421 07/18/15 0701 07/19/15 0715 CREATININE 0.76 0.77 0.80 -- BUN 7* 7* 4* -- NA 137 138 138 137 K 3.9 3.6 3.6 4.1 CL 99 100 102 98 CO2 27 31 29 31 Impression: 54 year old woman s/p ureteroscopy with continued chest pressure, nausea, flank pain, positive urine dip. Negative cardiac enzymes, negative PE workup. Currently afebrile and nontoxic, pancytopenic on admission. Flank pain likely related to stent, reflux of urine. Found to be in retention, now withfoley catheter. Urine culture without growth. Now with diarrhea. Recommendations: abx per primary team Continue carl x 1 week - will f/u in urology clinic for voiding trial and stent removal Future Appointments Date Time Provider Department Center 07/23/2015 10:30 Andrea Maddox MD [facility] None 07/25/2015 9:00 Scope, Cystoscopy EP5 Uro None 07/25/2015 9:15 Jordan Dickens MD EP5 Uro None 07/29/2015 9:30 Andrea Maddox MD [facility] None 08/12/2015 10:45 Jesus Vaughan MD [facility] ENT None 09/05/2015 9:30 Micheal Moseley MD [facility] GI Clin None Kenia Bowen MD 07/19/2015 8:57 Weekdays from 7AM-5PM page [phone] with questions. Cosigned by Segundo Dunaway MD at 07/20/2015 9:43 EDT Associated attestation - Segundo Dunaway MD - 07/20/2015 0943 EDT Attestation: I saw and evaluated the patient on 07/19/15. I agree with the findings and plan of careas documented in the resident's/fellow's note. Segundo Dunaway MD 07/20/2015 9:42 * Brock Preciado - 07/18/2015 2975 EDT Spiritual Care Note Re: Tara Boothe : 1960, AGE: 54 y.o. Room: [place] [address] Tara Boothe who is listed as Faith has received a visit from the Spiritual Care Department on 07/18/2015. Need/Assessment: ?? Tara was sleeping and unavailable for a visit. Intervention: ?? Prayers were said for them, their family and the care team. Will follow up at a later time. Outcome: ?? Plan of Action: No Follow up necessary - Needs met Continued Family Support x Continued Support from Financial Analysis Consultant following patient Make a Referral to: Continued Support with Volunteer Visits Connect with Community Supports Ask for a consult from: Other: Visit Initiated by: Referral Time: End of Life / Comfort Care / Hospice Urgent Request - Time: 0 Level of Visit Services Provided: Anointing of Sick x Prayer Communion Relaxation through music Assist Advanced Directives Integrative therapies Assist Decision Making Acevedo and Prayer at dying Exploration of Ethical issues Present at time of Family Support Other The Rev. Brock Preciado [facility], Chaplain [address] Phone [phone] Pager [phone] Spiritual Care is available 24 hours a day. Office hours are 0800 to 1700 Tuesday through Tuesday and 0830 to 1630 Tuesday and Tuesday. Interfaith and Yarsanism chaplains are available 24 hours a day. For routine consults please call and leave a message with the Spiritual Care Office ([phone]) and patients will be seen within 24 hours. Forall emergent consults page the Scientology or Interfaith on-call Financial Analysis Consultant through [facility] ([phone]). * Ling Isabel - 07/18/2015 1526 EDT On 07-18-15, at 1500, I notified patient verbally and with a letter that she is receiving outpatientobservation services. * Ling Isabel - 07/18/2015 1520 EDT Initial Case Management/Social Work Assessment and Discharge Plan /Readmission Risk Assessment Physician working diagnosis: chest pressure, nausea, flank pain Patient (or designee) understanding of admission: understands Patient Contact Information: [address], MEDICAL AND COMMUNITY SERVICES: Primary Care Provider: Dr. Lilliana Venegas Specialists seen on a consistent basis: Skilled home care services: [facility] Provider: Not at this time Pharmacy: [facility] LIVING ARRANGEMENTS AND ACCESSIBILITY ISSUES: House Are there any home access issues? No What in home social supports are available to the patient? Patient lives with son who will provide some support and who does not want her living there. ADVANCED DIRECTIVES, POA &/or COLST IN PLACE: No CULTURAL, TEMPLE and/or LANGUAGE factors affecting health care/discharge planning:: N/A FUNCTIONAL & PSYCHOSOCIAL INFORMATION: patient lives with her son, his serg and their children, her grandchildren. Son does not want her living there. Katherin OROZCO supplied some housing leads las admission, patient has not followed up yet owing to illness. This signwriter added information from [facility] [place] MEDICAL INSURANCE IN PLACE: Yes Medicare Type: A, B Medicaid Type: LTC Medicaid DISCHARGE RISK ASSESSMENT: Lives at home with limited or no community support;Repeat hospitalizations/ED visits;Polypharmacy, > 7 medications Total # selected above: Score of 2 - 4: This patient is at MODERATE RISK for re-hospitalization Tentative plan to address the risk of re-hospitalization for those at HIGH or MODERATE RISK: Bring risk factors to attention of team to be addressed INITIAL TRANSITION PLAN: Home with [facility] Transportation from hospital in place? Yes,Son will drive her Post hospitalization Plan: Return to independent living, Refer to skilled home care services: Choice form completed Home Care Agency: [facility] Requirements: No Initial plan discussed with: patient, Linda Rod RN [facility] Ling Isabel 07/18/2015 15:20 * Wild Miller MD - 07/18/2015 1420 EDT Daily Progress Note Admit Date: 07/17/2015 Hospital Day: LOS: 1 day Date of Service: 07/18/2015 Chief Complaint: Left flank pain, nausea, vomiting Overnight Events: -Admitted to medicine -Urology following -Afebrile -Nausea and vomiting under control -Urinary retention Subjective: Tara is still having pain in her left flank. She has been receiving IV dilaudid only(1mg) due to vomiting. The vomiting has resolved, and nausea is still present but under control with Zofran. Did not want to have the carl placed today as recommended, was in retention. Was going tofollow up with cardiology based on previous episodes of syncope and palpitations/chest pressure butmissed appointment. Reports being followed by [facility] for the past 3 years by hematology/GI for low blood counts. Has only taken 3 days worth of Ciprofloxacin due to vomiting and procedures. albuterol 2 Puff Q4H ciprofloxacin HCl 500 mg BID cyanocobalamin 1,000 mcg DAILY ferrous gluconate 324 mg BID (BREAKFAST/DINNER) fluticasone 1 Puff BID heparin 5,000 Units Q12H pantoprazole 40 mg DAILY pneumococcal vaccine (PPV23) 0.5 mL ONCE rifAXImin 550 mg BID tamsulosin 0.4 mg QHS ALPRAZolam 1 mg TID PRN HYDROmorphone 6 mg Q4H PRN ondansetron 4 mg Q4H PRN Or ondansetron (PF) 4 mg Q4H PRN oxybutynin 5 mg BID PRN Review of Systems: ROS: complete 10 point ROS negative unless otherwise mentioned in Subjective Objective/Physical Exam: VS: BP 136/77 mmHg Pulse 68 Temp(Src) 36.4 ??C (97.5 ??F) (Tympanic) Resp 16 Ht 165.1 cm (65) Wt 94.348 kg (208 lb) BMI 34.61 kg/m2 SpO2 92% Glucose Readings (last 8 readings): No results for input(s): GLUCOSEFINGE in the last 72 hours. I&O: Intake/Output Summary (Last 24 hours) at 07/18/15 1506 Last data filed at 07/18/15 1343 Gross per 24 hour Intake 2381.67 ml Output 900 ml Net 1481.67 ml Exam: Gen: Well-nourished, Well-developed, Lying comfortably in bed, No acute distress HEENT: atraumatic, eyes are bloodshot with slight yellowing, no oral lesions PULM: Lungs have expiratory wheezing in all godwin, No increased work of breathing. COR: RRR, s1, s2, No M/R/G. PMI non-palpable. ABD: soft, slightly tender in the right upper quadrant and left lower quadrant, non-distended, hernia present : carl in place Extremities: warm and well perfused, 2+ DP pulses, no edema Skin: No rashes on exam, bruising on the left lower abdomen Lines/Access: PIV Data Review: I have independently reviewed all labs and imaging in the last 24 hours Labs: WBC/Hgb/Hct/Plts: 1.84/10.6/31.9/64 (07/18 701) Na/K/Cl/CO2: 138/3.6/102/29 (07/18 701) BUN/Cr/glu/ALT/AST/amyl/lip: 4/0.80/--///--/-- (07/18 701) Other studies: CT Chest W/Contrast (07/17/2015): Impression: 1. No evidence of pulmonary emboli 2. Pulmonary edema CT Renal Colic (07/17/2015) Impression: 1. Left ureteral stent in appropriate position. 2. No hydronephrosis. No urinary tract calculi. 3. Cirrhosis with portal hypertension and splenomegaly, as seen on recent CT. 4. Prior cholecystectomy. No biliary ductal dilatation Assessment/Plan: Mrs. Tara Boothe is a 54 year old woman with PMH of cirrhosis secondary to NAFLD, asthma, RA and recent ureteral stent placement and lithotripsy for nephrolithiasis who presents with n/v and left flank pain. Suspect tyree procedural inflammation vs UTI vs pyelo at this point with associated n/v. Left flank pain: UA concerning for possible UTI vs pyelo. Patient with baseline leukopenia and remains afebrile. Likely recent procedure is contributing to pain. - Continue Ciprofloxacin (for now, pending cultures) until outpatient follow up with Urology on 07/25 - IVFs - Dilaudid 6mg PO Q4H PRN - Follow Urine Culture - Urology following, appreciate recs - Carl in place for decompression, plan to keep carl in place until follow up with Urology Chest pressure: No evidence of PE. Trops negative x2. Seems to be resolving and unlikely to be cardiac. Likely related to recurrent n/v. - Follow up with cardiology as outpatient N/V: Appears to be resolving. Likely related to flank pain. - Zofran 4mg PO or IV - IVFs NAFLD: - continue home rifaximin - D/C lactulose > diarrhea Pancytopenia: History of workup at [facility] per patient. Hematology + GI following there. Reportedbone marrow was normal. Current etiology likely due to liver disease and splenomegaly. - Follow counts Asthma: wheezing on exam - continue home meds of flovent and albuterol prn VTE Prophylaxis: Heparin 5000 units Q12H Discharge Plan: Likely home with improvement in symptoms Code: Full Benito Frankel MD 07/18/2015 15:06 I have interviewed and examined the patient. I agree with findings and plan of care as documented by the resident. I discussed with Rolf and reviewed labs, meds, imaging, and old records. I spent 38minutes, 20 in coordination of care. Wild Miller MD * Chelsea Lunsford RT - 07/18/2015 0900 EDT 0900:Came to instruct pt on IS but pt speaking with MD. Will attempt to come back later. IS left atbedside 1245: attempted to see pt again to start IS but she was on the phone. She said she was familiar with the IS. Will try to check in later. * Scottie Mari MD - 07/18/2015 0714 EDT Urology Progress Note Chief complaint: chest pressure, nausea, flank pain 24 hour events: Admitted Subjective: Still has chest pressure, nausea, L flank pain. Thinks nausea may be related to antibiotics. SOB improved. Fatigued. Minimal chills. ROS as above. All others negative. Objective: Blood pressure 133/77, pulse 68, temperature 35.6 ??C (96.1 ??F), temperature source Tympanic, resp. rate 18, height 165.1 cm (65), weight 94.348 kg (208 lb), SpO2 98 %. Intake/Output Summary (Last 24 hours) at 07/18/15 0715 Last data filed at 07/18/15 0400 Gross per 24 hour Intake 1350 ml Output 0 ml Net 1350 ml Exam: Gen: NAD CV: RRR no m/r/g Resp: CTAB Abdominal: Soft, nontender Back: L CVA tenderness : no carl Skin: multiple bruises on upper ext CBC pending this AM BMP Recent Labs 07/17/15 1328 07/17/15 1421 CREATININE 0.76 0.77 BUN 7* 7* NA 137 138 K 3.9 3.6 CL 99 100 CO2 27 31 Impression: 54 year old woman s/p ureteroscopy with continued chest pressure, nausea, flank pain, positive urine dip awaiting urine culture. Negative cardiac enzymes, negative PE workup. Currently afebrile and nontoxic, pancytopenic on admission. Flank pain likely related to stent, reflux of urine. Would recommend bladder decompression with carl to prevent urinary stasis and reflux of possibly infected urine. Recommendations: Antibiosis as you are doing F/U urine culture Would recommend placing carl catheter to prevent urinary stasis Strict I+Os Scottie Mari MD 07/18/2015 7:15 Weekdays from 7AM-5PM page [phone] with questions. Cosigned by Arie Marin MD at 07/18/2015 18:01 EDT * Cyril Valdez, RT - 07/17/2015 5685 EDT Patient consulted by RT while in the ED due to a history of Asthma. Patient stated she does not useher inhalers on a daily basis. No supplemental oxygen used and she confirms being a daily smoker. Patient demonstrated proper use of an MDI via spacer. Medication can be switched to nursing once she's transferred to the vang. documented in this encounter H&P Notes * Zara Watts - 07/18/2015 0940 EDT Internal Medicine H&P Admit date: 07/17/2015 Date of Service: 07/18/2015 PCP: Admitting Attending: CC: Chest pressure w N/V w left sided flank pain HPI: Ms. Boothe is a 54yow w PMHx significant for CIRRHOSIS secondary to NAFLD; also asthma, arthritis, and RECENT URETERAL STENT PLACEMENT AND LITHOTRIPSY FOR NEPHROLITHIASIS. Her initial presentation occurred 07/12/15 to [facility] ED due to left flank pain that woke her from sleep, hematuria and fever-- she was found to have a distal obstructing left ureteral stone that was treated w cystoscopy and placement of left ureteral stent; pt was d/c home w ciprofloxacin. On 07/15/15, she returned for outpatient left ureteroscopy w laser lithotripsy and left ureteral stent exchange and d/c home. The next day, she began to experience chest pain w SOB, N/V along w left sided flank pain. On , 07/17/15, she presented once again to our ED w continuation sx and underwent a chest CT, which preliminary reading showed no evidence of PE; lab results at this time showed negative troponin (x2); UA demonstrated trace leuk esterases and positive nitrites; CT renal demonstrated no hydronephrosis but did show evidence of mild left periureteral fat stranding. During this morning's interview, Ms. Boothe reports resolution of chest pain and vomiting, improvement in hematuria-- urine color appears pink, but continuation of nausea and left flank pain. She also reports dysuria, which has been present since initial presentation. She reports fever, chills, decrease in appetite and fatigue; pt also reports palpitations, wheezes and easy bruising. ROS: Full 10 point ROS performed, negative except for pertinent positives as described above Gen: positive--fevers, chills; negative--recent weight loss HEENT: negative--changes in vision CV: positive--palpitations; negative-- chest pain Pulm: positive--SOB, hx of asthma w inhaler use; negative-- cough GI: positive--hx BM changes (pt associates w use of lactulose) : positive--dysuria, hematuria, flank pain Musculoskeletal: no arthralgias or myalgias Neuro: none Endocrine: none Psych: none Heme: positive--hx of bleeding or bruising easily Skin: none Mobility: none Meds: MAR Reviewed Current Facility-Administered Medications Medication Route Frequency ??? albuterol inhaler 2 Puff inhalation Q4H ??? ALPRAZolam (XANAX) tablet 1 mg oral TID PRN--pt reports use mainly for sleep ??? ciprofloxacin HCl (CIPRO) tablet 500 mg oral BID ??? cyanocobalamin tablet 1,000 mcg oral DAILY ??? ferrous gluconate (FERGON) tablet 324 mg oral BID (BREAKFAST/DINNER) ??? fluticasone (FLOVENT) 110 mcg/actuation inhaler 1 Puff inhalation BID ??? heparin injection 5,000 Units subcutaneous Q12H ??? HYDROmorphone (DILAUDID) tablet 6 mg oral Q4H PRN ? ondansetron (PF) (ZOFRAN) injection 4 mg intravenous Q6H PRN ??? oxybutynin (DITROPAN) tablet 5 mg oral BID PRN ??? pantoprazole (PROTONIX) tablet 40 mg oral DAILY ??? pneumococcal vaccine (PPV23) (PNEUMOVAX) injection 0.5 mL intramuscular ONCE ??? rifAXImin (XIFAXAN) tablet 550 mg oral BID ??? tamsulosin (FLOMAX) capsule 0.4 mg oral QHS Past Medical History: Past Medical History Diagnosis Date ??? Cirrhosis of liver 4-5 yrs ??? Asthma Since childhood ??? Bleeding disorder Associated w liver disease ? ? Heartburn >20y ? ? Arthritis >15y ?? Thyroid disease 4-5 yrs Past Surgical History: Past Surgical History Procedure Laterality Date ??? Hernia repair ??? Appendectomy ??? Tonsillectomy ??? Cholecystectomy ??? Hysterectomy ??? Knee surgery ?? Fundoplication Medications: Prescriptions prior to admission Medication Sig Dispense Refill Last Dose ??? albuterol 90 mcg/actuation inhaler Inhale 2 Puffs as directed every 4 hours. 07/16/2015 ??? ALPRAZolam (XANAX) 1 mg tablet Take 1 mg by mouth 3 times daily. 07/17/2015 ??? ciprofloxacin HCl (CIPRO) 500 mg tablet Take 1 Tab by mouth 2 times daily for 7 days 14 Tab 0 07/18/2015 ??? cyanocobalamin 500 mcg tablet Take 1,000 mcg by mouth daily. 07/17/2015 ??? ferrous gluconate (FERGON) 324 mg (38 mg iron) tablet Take 324 mg by mouth 2 times daily with breakfast and dinner. 07/17/2015 ??? fluticasone (FLOVENT) 110 mcg/actuation inhaler Inhale 110 mcg as directed 2 times daily. 07/18/2015 ??? LACTULOSE ORAL Take by mouth. 07/17/2015 ??? LEVOTHYROXINE SODIUM (LEVOTHYROXINE ORAL) Take by mouth Unknown dose . 07/17/2015 ??? ondansetron (ZOFRAN, HYDROCHLORIDE,) 4 mg tablet Take 2 Tabs by mouth every 8 hours as needed for Nausea 15 Tab 0 Unknown ??? oxybutynin (DITROPAN) 5 mg tablet Take 1 Tab by mouth 2 times daily as needed for Pain 8 Tab 0 07/17/2015 ??? oxyCODONE (ROXICODONE) 5 mg immediate release tablet Take 1 Tab by mouth every 4 hours as needed for Pain Daily Max: 30 mg 12 Tab 0 07/17/2015 ??? pantoprazole (PROTONIX) 40 mg tablet Take 40 mg by mouth daily. 07/17/2015 ??? phenazopyridine (PYRIDIUM) 200 mg tablet Take 1 Tab by mouth 3 times daily as needed for Pain 15 Tab 0 07/17/2015 ??? tamsulosin (FLOMAX) 0.4 mg capsule Take 1 Cap by mouth daily 15 Cap 1 07/17/2015 Allergies: Allergies Allergen Reactions ??? Morphine Anaphylaxis ??? Tylenol [Acetaminophen] Other (See Comments) Contraindication with medical hx ??? Toradol [Ketorolac] Shortness Of Breath and rash ??? Aspirin Other (See Comments) Contraindication with medical hx ??? Reglan [Metoclopramide Hcl] SOB and rash ??? Sulfa (Sulfonamide Antibiotics) Rash Social History: History Substance Use Topics ??? Smoking status: Current smoker-- 1pk/1mo, 20pky ??? Smokeless tobacco: Never Used ??? Alcohol Use: No Family History: Mother-- at 73yo due to MVC, who was otherwise in good overall health Objective: BP 133/77 mmHg Pulse 68 Temp(Src) 35.6 ??C (96.1 ??F) (Tympanic) Resp 18 Ht 165.1 cm (65) Wt 94.348 kg (208 lb) BMI 34.61 kg/m2 SpO2 95% on room air I/O 24 hrs: Input total 1,951.7-- 431.7 due to IV NS; Output total 900-- due solely to straight-tipcath UOP: 1,051.7cc/24 hours, 0.929cc/kg/hr Physical Exam: General: Alert, aware, not in acute distress Head & eyes: Atraumatic/normocephalic, MMM, PERRL, icteric sclera, subconjunctival hemorrhage b/l ENT: Nasal mucosa unremarkable, clear oropharynx , non-erythematous, non- edematous, without exudate, poor dentition, no oral lesions Neck: Supple, no palpable lymphadenopathy, no thyromegaly; palpable left-sided cheek/neck mass thatis tender to palpation (ENT dx--cyst, scheduled excision for 08/06/15) CV: Regular rate and rhythm, normal S1 & S2; no murmurs, rubs or gallops appreciated Resp: left apex wheezes appreciated, remaining lung zones clear to auscultation, non-labored breathing Abd: +BS, soft, pt refused examination due to level of discomfort Back: left-sided CVA tenderness Ext: WWP, 2+symmetric DPPs bilaterally, no edema bilaterally, calves not tender to palpation bilaterally, no cyanosis or clubbing : carl catheter Neuro: AAOx3, speech and comprehension intact, follows commands appropriately, CN II-XII grossly intact, normal and symmetrical muscle bulk, tone, and strength throughout; sensation intact and symmetrical throughout Psych: Appropriate mood and affect Skin: LLQ ecchymosis 12cm in diameter observed (pt reports that is location of recent heparin shots); no rashes, lesions, or excoriations; normal color, temperature, and turgor Labs: CBC: Lab Results Component Value Date WBC 1.84* 07/18/2015 RBC 3.72* 07/18/2015 HGB 10.6* 07/18/2015 HCT 31.9* 07/18/2015 MCV 86 07/18/2015 MCH 28.4 07/18/2015 MCHC 33.2 07/18/2015 PLT 64* 07/18/2015 NEUTROABS 1.25* 07/17/2015 SEDRATE 19 06/17/2015 BMP: Lab Results Component Value Date NA 138 07/18/2015 K 3.6 07/18/2015 CL 102 07/18/2015 CO2 29 07/18/2015 BUN 4* 07/18/2015 CREATININE 0.80 07/18/2015 GLUCOSEFINGE 47* 06/18/2015 CALCIUM 9.0 05/16/2015 MG 1.7 07/17/2015 LABALBU 3.4 07/17/2015 Coagulation: Lab Results Component Value Date PROTIME 13.5* 07/12/2015 INR 1.2* 07/12/2015 PTT 34 07/12/2015 Imagin07/18/15-- CT Renal colic: No hydronephrosis. No urinary tract calculi 07/18/15-- CT Chest w contrast: No evidence PE; evidence of pulm edema 07/17/15-- CXR PA/Lateral: LLL consolidation concerning for possible pneumonia; possible pulm edema 07/15/15-- Retrograde Urogram: f/u of cystoscopy with left ureteroscopy, laser lithotripy 07/12/15-- 6mm stone in the distal left ureter resulting in a mild degree of hydroureteronephrosis Assessment: Tara Boothe is a 54 y.o. female with a h/o CIRRHOSIS secondary to NAFLD; also asthma, arthritis, and RECENT URETERAL STENT PLACEMENT AND LITHOTRIPSY FOR NEPHROLITHIASIS, admitted for chest pain, SOB and left flank pain. Most concerning is her continued left flank pain in the setting of recent stent placement, lithotripsy and ciprofloxacin treatment for nephrolithiasis. Also, PE findings included scleral icterus and RUQ discomfort that raises concern for her current state of liver disease. Following her conversation w urology consult, Ms. Boothe voiced concern over keeping the carl cath inplace when d/c home until f/u w urology in several days-- she's concerned over the inconvenience itmay pose. Plan: Left flank pain: DDx includes pyelonephritis or iatrogenic pain post-stent placement-- we will gaina better understanding of her clinical picture following results from urine culture -cont pain management w dilaudid 6mg Q6h -await urine culture results -consult urology Chest pain and SOB: -pt education regarding the use/importance of utilizing incentive spirometry -encourage pt ambulation -cardio consult contacted Pancytopenia: Hgb 10.6, Hct 31.9, WBC 1.84, PLT 64 -cont monitoring CBC -consider blood transfusion w precipitous drop in Hgb <7 w/i clinical context -w/u at [facility] included BM biopsy-- no evidence of heme pathology-- this may be pts baseline blood profile assessment N/V: -cont management w zofran Cirrhosis: -cont rifaximin -monitor LFTs VTE Prophylaxis: -encourage ambulation -w/h pharm intervention due to setting of hematuria and thrombocytopenia FEN: normal diet PPX: encourage pt ambulation Code status: uncertain at this time Disposition: very pleasant woman in moderate discomfort that is managed well on dilaudid; pt voicedconcerns regarding d/c home w FC in place-- will f/u w pt in 24h to reassess concerns Consults: cardiology, urology Zara Watts MS3 07/18/2015 9:40 * Bhaskar Bansal MD - 07/17/2015 4001 EDT Medicine Admitting H&P Admit Date: 07/17/2015 Date of Service: 07/17/2015 PCP: Emigdio Centeno Chief Complaint: N/v, left flank pain HPI: Mrs. Tara Boothe is a 54yo female with PMH of cirrhosis secondary to NAFLD, asthma, RA and recentureteral stent placement and lithotripsy for nephrolithiasis who presents with n/v and left flank pain. Patient reports on the morning of 07/12/15 she awoke with left flank pain, fever, and hematuria. Patient presented to the ED where she was found to have a distal obstructing left ureteral stone. Acystoscopy was performed with placement of a left ureteral stent. She was observed overnight with no further fevers and was discharged home on ciprofloxacin. On 07/15 patient returned for an outpatient left ureteroscopy with laser lithotripsy and left ureteral stent exchange. She was then discharged home. The following day on 07/16/15 patient began experiencing chest pressure with nausea and vomiting along with left flank pain. Vomiting continued to occur through morning of admission when she re-presented to the ED. While in the ED the patient was found to have an elevated d-dimer of 437. Patient then underwent CT chest which demonstrated no evidence of PE on prelim read. Troponin was negative ??2. CT renal colic demonstrated no hydronephrosis but did demonstrate mild left periureteral fat stranding. UA demonstrated trace leuk esterases and positive nitrites. Patient reports no further nausea or vomiting since early this a.m. of admission. She denies any abdominal pain. Chest pressure has improved. She does complain of a headache which began following successive episodes of vomiting. She continues to endorse left flank pain which improves daily. She reports dysuria which has been present since her initial presentation on 07/12. She reports hematuria isresolving but still has pink urine with occasional small blood clots. She denies fever, chills, night sweats, constipation, diarrhea. She endorses subjective subjective shortness of breath associatedwith vomiting. She endorses baseline easy bruising. Patient reports she currently has a tender mass over her anterior left neck which she states has been evaluated by ENT as a cyst and scheduled for removal on 08/06/15. PMH PSH Past Medical History Diagnosis Date ??? Cirrhosis of liver ??? Asthma ??? Bleeding disorder ??? Heartburn ??? Rheumatoid arthritis Past Surgical History Procedure Laterality Date ??? Hernia repair ??? Appendectomy ??? Tonsillectomy ??? Cholecystectomy ??? Hysterectomy ??? Knee surgery Social History Family History History Substance Use Topics ??? Smoking status: Current Every Day Smoker -- 0.50 packs/day for 20 years ??? Smokeless tobacco: Never Used ??? Alcohol Use: No History reviewed. No pertinent family history. Medications Prescriptions prior to admission Medication Sig Dispense Refill Last Dose ??? albuterol 90 mcg/actuation inhaler Inhale 2 Puffs as directed every 4 hours. Past Week ??? ALPRAZolam (XANAX) 1 mg tablet Take 1 mg by mouth 3 times daily. 07/17/2015 ??? ciprofloxacin HCl (CIPRO) 500 mg tablet Take 1 Tab by mouth 2 times daily for 7 days 14 Tab 0 07/18/2015 ??? cyanocobalamin 500 mcg tablet Take 1,000 mcg by mouth daily. 07/17/2015 ??? ferrous gluconate (FERGON) 324 mg (38 mg iron) tablet Take 324 mg by mouth 2 times daily with breakfast and dinner. 07/17/2015 ??? fluticasone (FLOVENT) 110 mcg/actuation inhaler Inhale 110 mcg as directed 2 times daily. 07/18/2015 ??? LACTULOSE ORAL Take by mouth. 07/17/2015 ??? LEVOTHYROXINE SODIUM (LEVOTHYROXINE ORAL) Take by mouth Unknown dose . 07/17/2015 ??? ondansetron (ZOFRAN, HYDROCHLORIDE,) 4 mg tablet Take 2 Tabs by mouth every 8 hours as needed for Nausea 15 Tab 0 Unknown ??? oxybutynin (DITROPAN) 5 mg tablet Take 1 Tab by mouth 2 times daily as needed for Pain 8 Tab 0 07/17/2015 ??? oxyCODONE (ROXICODONE) 5 mg immediate release tablet Take 1 Tab by mouth every 4 hours as needed for Pain Daily Max: 30 mg 12 Tab 0 07/17/2015 ??? pantoprazole (PROTONIX) 40 mg tablet Take 40 mg by mouth daily. 07/17/2015 ??? phenazopyridine (PYRIDIUM) 200 mg tablet Take 1 Tab by mouth 3 times daily as needed for Pain 15 Tab 0 07/17/2015 ??? tamsulosin (FLOMAX) 0.4 mg capsule Take 1 Cap by mouth daily 15 Cap 1 07/17/2015 ??? UNABLE TO FIND Xyfexen_ a liver antibioltic 07/14/2015 Allergies Allergies Allergen Reactions ??? Morphine Anaphylaxis ??? Tylenol [Acetaminophen] Other (See Comments) Contraindication with medical hx ??? Toradol [Ketorolac] Shortness Of Breath ??? Aspirin Other (See Comments) Contraindication with medical hx ??? Reglan [Metoclopramide Hcl] Rash ??? Sulfa (Sulfonamide Antibiotics) Rash Review of Systems: A ten point review of systems was performed with pertinent positives and negatives noted above 10 point review of systems obtained. Pertinent items noted above. All other items negative. Objective/Physical Exam: VS: Patient Vitals for the past 8 hrs: BP Pulse Heart Rate Resp Temp SpO2 O2 Flow Rate (L/min) O2 Device 07/18/15 0031 131/73 mmHg 68 - 16 36.6 ??C (97.9 ??F) 97 % 2 l/min Nasal cannula 07/18/15 0021 - - - - - - 2 l/min Room air 07/17/15 2300 123/63 mmHg - 76 BPM - - 98 % - - Pain: Patient Vitals for the past 8 hrs: Numeric Pain Level (Scale 1-10) 07/18/15 0238 5 07/18/15 0115 7 07/18/15 0031 8 07/17/15 2217 8 07/17/15 2034 8 Exam: General appearance: alert, cooperative, appears mildly uncomfortably Skin: No rashes or lesions HEENT: NC/AT, PERRL, EOMI, anicteric sclera, subconjunctiva hemorrhage bilaterally, dry MM Neck: supple, no JVD. No cervical lymphadenopathy. Small tender mass over left neck. Lungs: clear to auscultation bilaterally, good air movement throughout Heart: RRR, S1, S2 normal, no murmur, rub or gallop Abdomen: soft, non-tender, non-distended; bowel sounds normal; Left CVAT Neurologic: AAOx3. CN II-XII intact, moving all extremities, strength and sensation equal and intact throughout Extremities: extremities warm, atraumatic, no cyanosis or edema, 2+ radial, dorsal pedis, and posterior tibial pulses bilaterally Pressure Ulcer Present on admission? No Data Review: Labs: Lab Results Component Value Date CREATININE 0.77 07/17/2015 Lab Results Component Value Date NA 138 07/17/2015 K 3.6 07/17/2015 CL 100 07/17/2015 CO2 31 07/17/2015 Lab Results Component Value Date WBC 1.94* 07/17/2015 HGB 10.8* 07/17/2015 HCT 32.4* 07/17/2015 MCV 85 07/17/2015 PLT 60* 07/17/2015 Radiology: CT chest: discussed with radiology as no evidence of PE CT renal colic: -Left ureteral stent in stable position. -No left hydronephrosis or perinephric fat stranding. Mild left periureteral fat stranding. -Right urinary tract without acute abnormality. -No free fluid or free air in the abdomen. Assessment/Plan: Mrs. Tara Boothe is a 54yo female with PMH of cirrhosis secondary to NAFLD, asthma, RA and recentureteral stent placement and lithotripsy for nephrolithiasis who presents with n/v and left flank pain. Suspect possible periprocedural UTI vs pyelo at this point with associated n/v. Left flank pain: UA concerning for possible UTI vs pyelo. Patient with baseline leukopenia and remains afebrile - continue ciprofloxacin for now - IVFs - dilaudid for pain control, will switch to PO in AM if patient remains free from emesis - follow UCx - urology following Chest pressure: No evidence of PE. Trops negative x2. Seems to be resolving and unlikely to be cardiac. Likely related to recurrent n/v. - follow up final read of CT chest N/V: Appears to be resolving. Likely related to possible UTI/pyelo. - zofran - IVFs NAFLD: - continue home meds of rifaximin and lactulose Asthma: - continue home meds of flovent and albuterol prn VTE Prophylaxis: Holding in setting of hematuria and thrombocytopenia. SCDs and encourage ambulation Discharge Plan: Uncertain, likely home with improvement in sx Code: Full David Persaud MD 07/18/2015 2:53 I saw and examined the patient 07/17/2015. I have discussed the case with Dr. Persaud and agree withthe findings and plans documented above. Bhaskar Bansal MD, 07/18/2015, 7:38 Attending Physician Internal Medicine Night Hospitalist documented in this encounter Consult Notes * Scottie Mari MD - 07/17/[id number] EDT [facility] Urologic Surgery Emergency Department Consult Note Admit Date: 07/17/2015 Date of Service: 07/17/2015 PCP: Emigdio Centeno Requesting Attending: Yvette Jacobo MD* Specialty Completing Consult: Urologic Surgery Consulting Attending: Arie Marin MD Chief Complaint: Chest pressure, vomiting and eye redness Reason for Consult: Urology was asked to see Tara at the request of Yvette Jacobo MD* for evaluation of vomiting and flank pain. HPI: (include onset, location, quality, severity, duration, timing, associating symptoms) Tara is a 54 y.o. female with history of nephrolithiasis who originally presented to the ED on Tuesday07/12/15 with fevers to 101.2, fatigue and worsening L flank pain and found to have a L distal 6x9mm stone with hydroureteronephrosis on CT renal colic. She was taken to the OR urgently and a ureteral stent was placed. Urine cultures taken on 07/12 came back negative. She did well postoperatively and was discharged the following morning without issue. She had no issues at home and on 07/15 she was taken to the OR for L ureteroscopy, laser lithotripsy and stent exchange, which proceeded without complication. She was discharged to home after the procedure and she reports that she initially did well, however on POD#1 she developed intractable nausea and vomiting and bilateral conjunctival injection. She was able to take a total of 3 doses of cipro. She states that her L: flank pain had improved and was nonradiating, moderate, intermittent. Denies urinary frequency or dysuria, in fact has been urinating less frequently than usual. Some blood in urine. She had a headache, some chills, no fevers. On POD#2 she developed chest pain and substernal pressure as well as dyspnea on exertion,and presented to the ED for evaluation. A CT was performed showing the stent in good position, no hy dronephrosis, minimal stranding. Her labs revealed chronic leukopenia (1.9), anemia (10.8), thrombocytopenia (60). Creatinine preserved at .8. Urine was positive for trace leuk est, pos nitrites. Shehas been afebrile with stable vitals. Currently, she states her nausea is well controlled. Her SOB has improved, but she still has some chest pressure. She denies any fevers or chills currently. Her L flank pain is mild-moderate, nonradiating. She has no abdominal pain, dizziness, vision changes. Past Medical History Diagnosis Date ??? Cirrhosis of liver ??? Asthma ??? Bleeding disorder ??? Heartburn ??? Rheumatoid arthritis Past Surgical History Procedure Laterality Date ??? Hernia repair ??? Appendectomy ??? Tonsillectomy ??? Cholecystectomy ??? Hysterectomy ??? Knee surgery History Substance Use Topics ??? Smoking status: Current Every Day Smoker -- 0.50 packs/day for 20 years ??? Smokeless tobacco: Never Used ??? Alcohol Use: No No family history on file. No current facility-administered medications on file prior to encounter. Current Outpatient Prescriptions on File Prior to Encounter Medication Sig Dispense Refill ??? albuterol 90 mcg/actuation inhaler Inhale 2 Puffs as directed every 4 hours. ??? ALPRAZolam (XANAX) 1 mg tablet Take 1 mg by mouth 3 times daily. ??? ciprofloxacin HCl (CIPRO) 500 mg tablet Take 1 Tab by mouth 2 times daily for 7 days 14 Tab 0 ??? cyanocobalamin 500 mcg tablet Take 1,000 mcg by mouth daily. ??? ferrous gluconate (FERGON) 324 mg (38 mg iron) tablet Take 324 mg by mouth 2 times daily with breakfast and dinner. ??? fluticasone (FLOVENT) 110 mcg/actuation inhaler Inhale 110 mcg as directed 2 times daily. ??? LACTULOSE ORAL Take by mouth. ??? LEVOTHYROXINE SODIUM (LEVOTHYROXINE ORAL) Take by mouth Unknown dose . ??? ondansetron (ZOFRAN, HYDROCHLORIDE,) 4 mg tablet Take 2 Tabs by mouth every 8 hours as needed for Nausea 15 Tab 0 ??? oxybutynin (DITROPAN) 5 mg tablet Take 1 Tab by mouth 2 times daily as needed for Pain 8 Tab 0 ??? oxyCODONE (ROXICODONE) 5 mg immediate release tablet Take 1 Tab by mouth every 4 hours as needed for Pain Daily Max: 30 mg 12 Tab 0 ??? pantoprazole (PROTONIX) 40 mg tablet Take 40 mg by mouth daily. ??? phenazopyridine (PYRIDIUM) 200 mg tablet Take 1 Tab by mouth 3 times daily as needed for Pain 15 Tab 0 ??? tamsulosin (FLOMAX) 0.4 mg capsule Take 1 Cap by mouth daily 15 Cap 1 ??? UNABLE TO FIND Xyfexen_ a liver antibioltic Allergies Allergen Reactions ??? Morphine Anaphylaxis ??? Tylenol [Acetaminophen] Other (See Comments) Contraindication with medical hx ??? Toradol [Ketorolac] Shortness Of Breath ??? Aspirin Other (See Comments) Contraindication with medical hx ??? Reglan [Metoclopramide Hcl] Rash ??? Sulfa (Sulfonamide Antibiotics) Rash Review of Systems: Pertinent items are noted in Subjective/HPI Objective/Physical Exam: Vital Signs: Patient Vitals for the past 8 hrs: BP Heart Rate Resp SpO2 O2 Flow Rate (L/min) 07/17/15 1834 110/61 mmHg 71 BPM 16 97 % 2 l/min 07/17/15 1639 108/58 mmHg 71 BPM 16 97 % 2.5 l/min 07/17/15 1444 108/64 mmHg 72 BPM 17 97 % - Weight: Weight : 95.255 kg (210 lb) Height: Height: 162.6 cm (64) I and O: Exam: General Appearance: Awake, alert, No acute distress Skin: No rashes or lesions, warm Lungs: clear to auscultation bilaterally Heart: RRR Abdomen: Soft, non-distended and Nontender Extremities: extremities warm, atraumatic, no cyanosis or edema extremities warm, atraumatic, no edema Neuro: Grossly normal Back: Costovertebral Angle: present on left Genitourinary: no Carl Data Review: Labs: CBC: Lab Results Component Value Date WBC 1.94* 07/17/2015 RBC 3.81* 07/17/2015 HGB 10.8* 07/17/2015 HCT 32.4* 07/17/2015 MCV 85 07/17/2015 MCH 28.5 07/17/2015 MCHC 33.5 07/17/2015 PLT 60* 07/17/2015 NEUTROABS 1.25* 07/17/2015 NEUTROABS 2.04* 07/12/2015 SEDRATE 19 06/17/2015 BMP: Lab Results Component Value Date NA 138 07/17/2015 K 3.6 07/17/2015 CL 100 07/17/2015 CO2 31 07/17/2015 BUN 7* 07/17/2015 CREATININE 0.77 07/17/2015 GLUCOSEFINGE 47* 06/18/2015 CALCIUM 9.0 05/16/2015 MG 1.7 07/17/2015 LABALBU 3.4 07/17/2015 U/A: Lab Results Component Value Date CLARITYU Clear 07/17/2015 CLARITYU Clear 06/17/2015 LABSPEC 1.010 07/17/2015 PHUR 6.5 07/17/2015 GLUCOSEU Neg 07/17/2015 BILIRUBINUR Neg 07/17/2015 KETONES Neg 07/17/2015 KETONES Neg 06/17/2015 BLOODU 3+* 07/17/2015 MICRO (7day): Recent Results (from the past 168 hour(s)) BACTERIAL CULTURE, URINE Collection Time: 07/12/15 12:50 Result Value Ref Range Status Result No growth Final Imaging: I have independently visualized the CT renal colic. -Left ureteral stent in stable position. -No left hydronephrosis or perinephric fat stranding. Mild left periureteral fat stranding. -Right urinary tract without acute abnormality. -No free fluid or free air in the abdomen. Impression: 54 year old female with history of nephrolithiasis, s/p L ureteroscopy and laser litho for a L distal ureteral stone, now presenting with SOB/CP, chest pressure and intractable nausea/vomiting and continued flank pain. Etiology of CP/SOB in setting of pancytopenia unclear. Source of nausea also unclear but could be medication related or stent symptoms along with flank pain - CT imaging showing stent in good position with no hydronephrosis. Afebrile with stable vitals. Stable creatinine and lytes despite setting of dehydration and vomiting. Does not appear toxic, although she does have a positive urine dip. Not currently meeting SIRS criteria. Took 3 doses of cipro before vomiting began. Suggestions/Recommendations: - Would recommend medicine evaluation - Symptom management and supportive care - IVF resuscitation - Urine culture, Antibiosis, tailor when sensitivities return - Carl catheter to decompress urinary system fully - Strict I+Os - Dispo per ED Thank you for consulting us in the care of Tara Boothe. We will, of course, continue to keep you informed of the patient's urological care and the results of our further evaluation. Scottie Mari MD 07/17/2015 22:02 Cosigned by Arie Marin MD at 07/18/2015 18:01 EDT documented in this encounter ED Notes * Julissa Luther RN - 07/17/[address] Bansal at bedside currently. * Julissa Luther RN - 07/17/2015 2138 EDT Surgery MD at bedside * Julissa Luther RN - 07/17/2015 2044 EDT Pt trasported to CT via stretcher. * Katherin Curiel RN - 07/17/2015 1829 EDT Left AC PIV infiltrated while in CT, pt arrives from CT with warm compress to site, PIV removed. * Segundo Dickerson MD - 07/17/2015 1818 EDT I, Adelaida Shepherd, am scribing for Segundo Dickerson MD while he is personally performing the service. Adealida Shepherd 07/17/2015 18:18 Assumed care of patient from Dr. Jacobo with Renal colic CT and chest CT with contrast pending. Tara Boothe is a 54 y.o. female who presents to the ED with complaints of dyspnea, mid sternal and left-sided chest pressure that radiates to her neck and back, and general fatigue. She also notes blood-shot eyes that began yesterday when she woke up. The patient additionally notes nausea, vomiting, and inability to tolerate PO. She notes that she had a left distal ureteral stone lasered and stent exchanged on 07/11. Care prior to sign out includes labs significant for leukopenia, low platelets, low WBC count, 3% bands, and elevated D-dimer. Chest CT with contrast ordered. Patient had a chest x-ray with concern for possible left lower lobe pneumonia and findings suggestive of pulmonary edema. Patient notes her nausea has resolved with Zofran. ED course - 1835. Upon reevaluation, the patient notes that her nausea is returning. Renal colic CT shows no acute abnormality. Pt had a CT scan that was obtained, reviewed, and interpreted by myself in conjunction with the radiologist. Please see radiology report for further details. Chest CT with contrast unable to be obtained due to IV access. Urinalysis shows positive nitrite and 3+ blood. 2113. Consulted urology. They advise medicine admission 2217. Hospitalist consulted. Patient admitted to hospitalist (Dr. Bansal). This documentation is recorded by Adelaida Farnsworth acting as Scribe under the direction and presence of Segundo Dickerson MD. I, Segundo Dickerson MD, personally performed the services recorded by the scribe in my presence. I confirm the scribe's documentation has been reviewed by me to accurately and completely record my work, treatment, procedures, and medical decision making. * Katherin Curiel RN - 07/17/2015 1801 EDT Pt transported to CT by stretcher with tech. * Katherin Curiel RN - 07/17/2015 1648 EDT Pt transported to xray by stretcher with tech. * Arely Weinberg RN - 07/17/2015 1503 EDT Phlebotomy paged to redraw clotted labs (CBC and D Dimer) * Arely Weinberg RN - 07/17/2015 1444 EDT Complains of pain in left breast area with radiation into left neck/shoulder area. * Yvette Jacobo MD - 07/17/2015 1407 EDT DOS: 07/17/2015 Chief Complaint Patient presents with ??? Shortness of Breath Pt is s/p laser kidney stone surgery 2 days ago and now is having dyspnea and chest pain. Pain ismidsternal and left sided and radiates to her neck and back. HPI The patient is a 54 y.o. female who presents today with Shortness of Breath HPI Comments: 07/17/2015 14:08 Tara Boothe is a 54 y.o. female with a history of asthma, fatty liver and kidney stones who presents to the ED with a headache, chest pain, and general fatigue. Uretal stent on 07/11 Chest pressure today. Nausea, vomiting, unable to keep Copied Note Below 07/15/15 Surgeon: Jordan Dickens MD Implementation Project Coordinator: Scottie Mari MD; Beni Zepeda MS4 Pre-op diagnosis: L distal ureteral calculus Post-op diagnosis: same Procedure: cystoscopy, L ureteroscopy, laser lithotripsy, L ureteral stent exchange Anesth: General Findings: L distal ureteral stone, lasered, stent exchanged Copied Note Above The history is provided by the patient and medical records. No high school foreign language teacher was used. Shortness of Breath Severity: Moderate Onset quality: Sudden Duration: 8 hours Timing: Constant Progression: Unchanged Chronicity: New Relieved by: Nothing Worsened by: Nothing tried Ineffective treatments: None tried Associated symptoms: chest pain and vomiting Review of Systems Review of Systems Constitutional: Positive for activity change, appetite change and fatigue. HENT: Negative for congestion and rhinorrhea. Respiratory: Positive for shortness of breath. Cardiovascular: Positive for chest pain. Gastrointestinal: Positive for nausea and vomiting. Genitourinary: Positive for flank pain. Negative for dysuria. Skin: Negative for pallor. Neurological: Negative for syncope. Psychiatric/Behavioral: Negative for confusion. All other systems [...] Rash Vital Signs Vitals Reassessment?: Yes Temp: 36.6 ??C (97.9 ??F) Temp src: Temporal Pulse: 85 Heart Rate: 72 BPM Cardiac Rhythm: Normal sinus rhythm Resp: 17 SpO2: 97 % BP: 108/64 mmHg BP Device: BP Machine Patient Position: Sitting BP Cuff Location: Left arm O2 Device: None (Room air) Physical Exam Constitutional: Uncomfortable appearing HENT: Very dry mucus membranes Eyes: Bilateral conjunctival injection, question protosis. Cardiovascular: Intact distal pulses. Afebrile no tachycardia Pulmonary/Chest: No respiratory distress. She has no wheezes. She has no rales. Abdominal: She exhibits no distension. There is no tenderness. Musculoskeletal: She exhibits no edema. No warmth, cords, erythema. Normal pulses distally. No notably asymmetric edema Neurological: She is alert. No cranial nerve deficit. She exhibits normal muscle tone. Skin: Skin is warm and dry. She is not diaphoretic. No erythema. Psychiatric: She has a normal mood and affect. Nursing note and vitals reviewed. RESULTS EKG orders: EKG 12-LEAD Radiology orders: CHEST PA AND LATERAL ED Radiology: Impression: --CT renal colic: Impression 1. Left ureteral stent in appropriate position. 2. No hydronephrosis. No urinary tract calculi. 3. Cirrhosis with portal hypertension and splenomegaly, as seen on recent CT. 4. Prior cholecystectomy. No biliary ductal dilatation. (Radiographs/Images reviewed and interpreted by me, contemporaneously with patient care. Radiology interpretation also reviewed, if available) Procedures ED COURSE A medical screening exam was performed. Blood lab review: WBC 1.94. HCT 32.4. Platelets of 60. No significant change expect minor drop in WBC. And 3 percent bandemia is new. No objective evidence of PE, ACS. Admitted to [facility] ASSESSMENT AND PLAN Final diagnoses: Intractable vomiting with nausea, vomiting of unspecified type Other chest pain DISPOSITION: Admitted The patient's pain was managed to an adequate level weighing risk vs. benefit of further medications. Upon departure from the Emergency Department, the patient's pain was 8 on a zero to ten scale. Condition at departure from the Emergency Department: Fair PCP: Emigdio Centeno MDM Number of Diagnoses or Management Options Intractable vomiting with nausea, vomiting of unspecified type: Other chest pain: Diagnosis management comments: 5 Amount and/or Complexity of Data Reviewed Clinical lab tests: ordered and reviewed Tests in the radiology section of CPT??: reviewed and ordered Tests in the medicine section of CPT??: ordered and reviewed Obtain history from someone other than the patient: yes Review and summarize past medical records: yes Discuss the patient with other providers: yes ([facility], urology) This documentation is recorded by Scottie Quezada acting as Scribe under the direction and presence of Yvette Jacobo MD. Yvette Jacobo MD, I personally performed the services recorded by the scribe in my presence.I confirm the scribe's documentation has been reviewed by me to accurately and completely record mywork, treatment, procedures, and medical decision making. 07/17/2015 16:45 No flowsheet data found. * Amador Rivers - 07/17/2015 1343 EDT Blood drawn via butterfly needle per protocol, rainbow tube(s) sent to lab per order. * Juliet Lees RN - 07/17/2015 1259 EDT Pt also c/o left eye redness. documented in this encounter Miscellaneous Notes * Plan of Care - Radha Carlton RN - 07/25/2015 0404 EDT Problem: Daily Care Plan Goals Goal: Care Plan Documentation Data: Patient with 8/10 left flank pain, requesting Dilaudid and Xanax. Drowsy at times. Patient became slightly agitated when she was told her Dilaudid dose was extended from Q3 to Q4 dosing, stating why wouldn't they tell me first. Action: Medicated patient as requested. Shower and hot pack applied for additional pain relief. Emotional support provided about medication dosing. Response: Patient got minimal sleep overnight and was found walking in the hallways most of the night. Will continue to monitor. Radha Carlton RN 07/25/2015 4:00 * Plan of Care - Simona Brady RN - 07/24/2015 1726 EDT Problem: Daily Care Plan Goals Goal: Care Plan Documentation Outcome: Not Met This Shift 07/24/15 0928 Care Plan Focus Area of Focus GI//Elimination Goal This Shift Pt will <3 BM this shift Data: Pt treated for c-diff. C/o 8/10 L flank pain. Action: PO Vancomycin and Dilaudid administered per orders. Response: Pt A&Ox3 however appears drowsy this afternoon. Able to urinate w/o issues. 5 loose BMs during this shift. Pt's son visited and updated by Dr. Guaman. SIMONA DAY RN 07/24/2015 17:22 * Plan of Care - Sowmya Cantu RN - 07/24/2015 1224 EDT Problem: SKIN INTEGRITY Goal: Skin Integrity Is Maintained Or Improved Outcome: Met This Shift Data: skin integrity intact, pt eating well and ambulatory. Action: Quarterly Pressure Ulcer Rounds assessment. Response: WNL; Continue care as planned. Sowmya Cantu RN 07/24/2015 12:23 * Plan of Care - Radha Carlton RN - 07/24/2015 0614 EDT Problem: Daily Care Plan Goals Goal: Care Plan Documentation Outcome: Ongoing Data: Patient reporting 10/10 bladder pain and discomfort with her carl. Carl draining bloody urine, with several clots after flushing with 10 mL of NS. Action: 6 mg of PO Dilaudid administered x2 overnight for pain. Carl removed (MD aware) due to discomfort, patient voided 50 mL 1-hour post removal. Ambulated around the unit several times. Response: Patient got minimal sleep overnight due to pain, however, stated that she felt a lot of relief after the carl was removed. WCTM. Radha Carlton RN 07/24/2015 6:11 * Plan of Care - Gerson Dumont RN - 07/23/2015 8194 EDT Problem: Daily Care Plan Goals Goal: Care Plan Documentation Outcome: Ongoing 07/23/15 1549 Care Plan Focus Area of Focus Pain/ Comfort Goal This Shift pain level < 5 this shift. Data: Pt was alert and oriented x3. C/o L flank pain. Ambulated in the room and to the BR with contact guard. Rated her pain 8/10. Good po intake. Good po fluids intake. Carl drained out good amt ofyellow urine with small clots noted. Action: Monitored for pain and comfort level. Monitored I and O. Dilaudid given for pain as ordered. Response: Pt rated her pain 6/10 after pain med given. In bed, resting at this time. No acute distress noted. Cont to monitor. Gerson Dumont RN 07/23/2015 22:39 * Plan of Care - Puja Diaz RN - 07/23/2015 1433 EDT Problem: PAIN Goal: Patient???s Pain And Discomfort Are Adequately Managed Outcome: Met This Shift Nursing Pain Note D: Patient c/o 8/10. Pain to L flank. Carl cath patent. Black loose stools courtesy clerk. Contact isolation for C - diff. A: Patient receiving PRN medications. See MAR. Provided the following non- pharmacologic interventions: heat. R: Patient now reports pain 6/10. Verbalized that pain is well controlled and tolerable after 6 mg of dilaudid. Able to ambulate in room and around the unit independently. Tolerating activity. Carl with adequate urine output, ange to tea colored urine. Will continue to monitor and adjust interventions as necessary. Puja Diaz RN 07/23/2015 14:31 * Plan of Care - Karol Retana - 07/23/2015 0318 EDT Problem: Daily Care Plan Goals Goal: Care Plan Documentation Outcome: Met This Shift 07/22/15 1929 Care Plan Focus Area of Focus Pain/ Comfort Goal This Shift pt will state pain relief from pain meds Data: s/p urethral stent placement and lithotripsy who c/o continued left flank pain; at beginning of the shift, pt was medicated with prn dilaudid and ditropan by previous nurse to help with pain and spasms; at that time, pt had rated pain 7/10; pt states that pain comes and goes in waves Action: pt medicated with prn pain medications t/o the shift per pt request for pain control; pt ambulates the hallways to help distract pt from pain Response: pt's pain has decreased to 5/10 and usually does not get any lower than that; pt slept very little and up walking the hallways; continue to medicate pt per pt request Karol Retana RN 07/23/2015 3:09 * Plan of Care - Lroy Guzman RN - 07/22/2015 1910 EDT Problem: Daily Care Plan Goals Goal: Care Plan Documentation Outcome: Not Met This Shift 07/22/15 1901 Care Plan Focus Area of Focus Pain/ Comfort 07/22/15 Pain, L flank Data: pt reporting 7/10 L flank pain about 2 hours after dilaudid 6mg. Action: administered ditropan prn as well as dilaudid 6mg. To see if there is decreased pain. Response: pending, ctm. Lory Guzman RN 07/22/2015 19:02 * Plan of Care - Melina Galvez RN - 07/22/2015 1503 EDT Problem: Daily Care Plan Goals Goal: Care Plan Documentation Outcome: Met This Shift 07/22/15 0733 Care Plan Focus Area of Focus GI//Elimination Goal This Shift pts bowel elimination will sloww down Data: Tara has been very upset today regarding the amount of BM's she has had today. She had only one overnight but has had many today. She is quite upset over this as she was hoping that she would be able to go home today. Her son and grandchildren were in to visit and this was helpful at raising her spirits. Action: Monitored pt for comfort and safety. Medicated with PRN Dilaudid per orders and need. Maintained safe environment. Provided emotional support and education on c-diff. Response: Tara is currently resting in bed. She is upset regarding not being able to go home today but is understanding of the reasons. Melina Cortés RN 07/22/2015 14:44 * Plan of Care - Radha Carlton RN - 07/22/2015 0353 EDT Problem: Daily Care Plan Goals Goal: Care Plan Documentation Outcome: Ongoing 07/21/152056 Care Plan Focus Area of Focus Pain/ Comfort Goal This Shift Patient will rate pain below a 7 tonight Data: Patient with c/o 8/10 left flank pain. Very drowsy at times and patient states I'm just exhausted. Only 1 episode of loose stools overnight. Action: Medicated with 6 mg of PO Dilaudid and Xanax given at bedtime, per patient request (see mar). Assistance to the bathroom as needed. Care clustered to promote sleep. Response: Patient has been resting all night and has not needed to get up to use the bathroom. Painmanagement appears to be effective. Will continue to monitor. Radha Carlton RN 07/22/2015 3:50 * Plan of Care - Zoila Curiel RN - 07/21/2015 4454 EDT Problem: Daily Care Plan Goals Goal: Care Plan Documentation Outcome: Ongoing 07/21/15 1530 Care Plan Focus Area of Focus Pain/ Comfort Goal This Shift pt's pain will be tolerable Problem: PAIN Goal: Patient???s Pain And Discomfort Are Adequately Managed Outcome: Ongoing Data: Pt had left flank pain 8/10 at start of shift. She felt that taking Dilaudid q4 wasn't keeping her pain at a tolerable level. Action: Called Dr. Frankel and discussed the possibility of increasing the freq. Of her Dilaudid. Response: Dilaudid 6 mg q3h prn was ordered in replace of q4h prn. Pt's pain decreased to a 5/10. She said the pain is more tolerable when taking it every 3h. Will CTM. Zoila Curiel RN 07/21/2015 18:28 * Plan of Care - Alexandria Pratt RN - 07/21/2015 0924 EDT Problem: CONTACT PRECAUTIONS Goal: Prevent Transmission Of Infection Pt + for c-diff. Please maintain contact precautions with soap and water handwashing until treatment is competed AND patient is asymptomatic for 24 hours. Do not cohort. * Plan of Care - Lary Collado RN - 07/21/2015 0431 EDT Problem: Daily Care Plan Goals Goal: Care Plan Documentation Outcome: Ongoing 07/20/15 2153 Care Plan Focus Area of Focus Pain/ Comfort Goal This Shift pt will report low pain levels Data: Pt has various pain issues and gets dilaudid about q 4 hrs. Pt states she has arthritis and if she does not move around frequently her pain level will spike up. Pt stated her pain level was 8/10-mostly in her hips/lower legs. Action:Pt opted to ambulate several times around the unit then took some dilaudid and Xanax. Response:Pt stated her pain level came down slowly/pt continued to putter around in her room for about 1 hr 20 min. Pt noted to be asleep after 2 hrs of receiving the 2 meds. Lary Collado RN 07/21/2015 4:15 * Plan of Care - Sheyla Gambino RN - 07/20/2015 2346 EDT Problem: Daily Care Plan Goals Goal: Care Plan Documentation Outcome: Met This Shift 07/20/15 1627 Care Plan Focus Area of Focus Nutrition/ Diet Goal This Shift Pt will tolerate food and nausea will be manageable Data: Pt being treated with PO cipro for questionable pyelonephritis. Endorses nausea and requests zofran prior to meals. Action: Monitor GI status. Zofran PRN. Response: Pt ate 50% meal and snacked t/o shift. Taking adequate PO fluids. Sheyla Gambino RN 07/20/2015 22:46 * Plan of Care - Melina Galvez RN - 07/20/2015 1506 EDT Problem: Daily Care Plan Goals Goal: Care Plan Documentation Outcome: Met This Shift 07/20/15 0750 Care Plan Focus Area of Focus Pain/ Comfort Goal This Shift pt will state that pain is managed at a tolerable level Data: Tara was very distressed by being told that she now has c-diff. She was extremely upset that she would no longer being going home today with her son and grandchildren. She was very anxious most of the day and spent much of the day cleaning her room, bathroom and changing the trash bags. She requested her xanax multiple times through the day and was expressing that she felt restricted and I can't stand it. Action: Medicated pt for anxiety and pain as ordered. Brought pt for a walk in the halls with her wearing gown, gloves and new socks to assist her feel less restricted. Monitored for safety and comfort. Response: Pt is currently sleeping. She became very tired after walking and wanted to lay down for a nap. Will monitor. Melina Cortés RN 07/20/2015 14:57 * Plan of Care - Andrey Evans RN - 07/20/2015 0551 EDT Problem: Daily Care Plan Goals Goal: Care Plan Documentation Outcome: Ongoing 07/20/15 0140 Care Plan Focus Area of Focus Pain/ Comfort Goal This Shift pt will rate pain level < 6/10 after pain med is given Problem: PAIN Goal: Patient???s Pain And Discomfort Are Adequately Managed Outcome: Ongoing Data: pt c/o 8/10 left lower back pain. Action: medicated pt with Dilaudid 6 mg prn. Response: at re-assessment, pt found asleep, appears comfortable. Will ctm. Andrey Evans RN 07/20/2015 5:44 * Plan of Care - Sheyla Gambino RN - 07/19/2015 0343 EDT Problem: Daily Care Plan Goals Goal: Care Plan Documentation Outcome: Ongoing Data: Pt here for treatment of questionable pyelonephritis vs UTI with left sided flank pain. Pt c/o increased pain this afternoon 9/10 despite regimen of 6 mg PO dilaudid. Stated tolerable level 5/10. Pt requested IV dilaudid. Action: Notified Dr Levi and additional 4 mg PO dilaudid ordered and administered. Explained to pt that MD's were hopeful for d/c soon and so finding appropriate dose of PO pain relief was important. Pt was agreeable and was told to notify RN if medications ineffective. Response: Pain decreased to 6/10 this evening. Stated she also had some nausea but no vomiting and tolerated a regular diet. Continue to monitor. Sheyla Gambino RN 07/19/2015 22:48 * Plan of Care - Zoila Curiel RN - 07/19/2015 1508 EDT Problem: Daily Care Plan Goals Goal: Care Plan Documentation Outcome: Ongoing 07/19/15 0807 Care Plan Focus Area of Focus Nutrition/ Diet Goal This Shift pt will be able to eat without emesis Problem: NAUSEA AND VOMITING Goal: Patient Will Experience Relief from Nausea and Vomiting Outcome: Ongoing Data: Pt was admitted with L sided flank pain with N/V. She tolerated her breakfast poorly and had an episode of dry heaving after. Action: Before lunch administered Zofran IV (instead of usual PO per doctor's request). Response: Pt tolerated her lunch well. She said she took a full hour to eat it. No dry heaving or emesis since. Will CTM. Zoila Curiel RN 07/19/2015 15:05 * Plan of Care - Merary Elliott RN - 07/19/2015 0339 EDT Problem: Daily Care Plan Goals Goal: Care Plan Documentation 07/18/15 2100 Care Plan Focus Area of Focus Nutrition/ Diet Goal This Shift nausea will be controlled Data: Pt reports left back pain and left neck pain. Pt reports nausea increases when pain increases. Pt reports not tolerating dinner. Action: Pt encouraged to have clears. Pt medicated with prn dilaudid and zofran. Response: Pt reports pain is managable with dilaudid. Nausea controlled with zofran. Pt tolerating clears. Will continue to monitor. Merary Castro RN 07/19/2015 3:36 * Plan of Care - Asif Luis RN - 07/18/2015 1948 EDT Problem: NAUSEA AND VOMITING Goal: Patient Will Experience Relief from Nausea and Vomiting Data: Assumed care of patient at 1530, patient reported being nauseous this morning after trying eggs, did ok at lunch with soups, wanted to try rice and baked chicken for dinner Action: administered IV zofran prior to dinner Response: Patient able to eat less than 50% of meal then vomited 'pieces of the chicken (I didn't see), recommended that she stick to clears again tomorrow morning and try slowly again to advance ASIF LUIS RN 07/18/2015 19:44 * Plan of Care - Alfa Baez RN - 07/18/2015 1452 EDT Problem: Daily Care Plan Goals Goal: Care Plan Documentation Data: Pt c/o 8/10 pain in left chest, radiating to back. Requesting pain medication. Orders to insert carl. Action: Scheduled medications administered per orders. PRN dilaudid and xanax given per pt request.See MAR. Monitored comfort level. Assisted pt to ambulate the unit. Carl inserted using sterile technique; positive urine return. Response: Pt resting following medication administration; rating pain down to 6/10 upon awaking. Tolerating ambulation well. Carl draining yellow, clear urine. Will continue to monitor. Alfa Baez RN 07/18/2015 14:44 * Plan of Care - Marika Castellanos - 07/18/2015 1110 EDT Urology Plan of Care Carl catheter placed this morning with return of ~500-600 cc urine. 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 Discussed with patient our recommendation to continue indwelling carl until she is seen in follow-up on 07/25/15 @ 0900 for her stent removal in the office. We would alsorecommend continuing antibiotic therapy at least through her stent removal, based on the results ofher urine culture. Discussed with Dr. Dickens and primary team. Marika Castellanos PA-C * Plan of Care - Merary Elliott RN - 07/18/2015 0445 EDT Problem: Daily Care Plan Goals Goal: Care Plan Documentation Outcome: Met This Shift 07/18/15 0054 Care Plan Focus Area of Focus Pain/ Comfort Goal This Shift Pt will rate pain 5 or less Data: Pt reports chest pressure on the left of the sternum, radiating to left arm and up to left neck. Pt also reports pain in left flank. Pt reports nausea. Action: Pt medicated with prn dilaudid and zofran. Response: Pt reports pain is 5/10 on reassessment. Will continue to monitor. Merary Castro RN 07/18/2015 4:43 documented in this encounter Plan of Treatment Upcoming Encounters Date Type Department Care Team (Late st Contact Info) Description 01/04/2025 13:00 EST Office Visit [facility] Ophthalmology - [address] [phone] Gagandeep Rome MD [address] [place] [address], [facility] [address] [place] [phone] 02/11/2025 13:30 EDT Telemedicine [facility] Hematology & Oncology [address] [id number] Dana Padilla MD [address] [place] [address], [facility] [address] [place] [phone] Scheduled Referrals Name Type Priority Associated Diagnoses Orde r Schedule AMB CONS/FOLLOW UP PRIMARY CARE PHYSICIAN Outpatient Referral Routine Acute left flank pain C. difficile colitis Ordered: 07/25/2015 AMB CONS/FOLLOW UP UROLOGY Outpatient Referral Routine Acute left flank pain Ordered: 07/25/2015 documented as of this encounter Procedures Procedure Name Priority Date/Time Associated Diagnosis Comments CREATININE Routine 07/24/2015 14:31 EDT ELECTROLYTES Routine 07/24/2015 14:31 EDT ECG REPORT - SCANNED 07/23/2015 6:32 EDT COMPLETE BLOOD COUNT AND DIFFERENTIAL Routine 07/21/2015 7:18 EDT BUN Routine 07/21/2015 7:18 EDT MAGNESIUM Routine 07/21/2015 7:18 EDT CREATININE Routine 07/21/2015 7:18 EDT ELECTROLYTES Routine 07/21/2015 7:18 EDT C. DIFFICILE PCR Routine 07/19/2015 16:2 0 EDT COMPLETE BLOOD COUNT Routine 07/19/2015 7:15 EDT ELECTROLYTES Routine 07/19/2015 7:15 EDT INPATIENT ADD-ON Routine 07/18/2015 10:5 0 EDT INCENTIVE SPIROMETRY RT Routine 07/18/2015 7:50 EDT COMPLETE BLOOD COUNT Routine 07/18/2015 7:01 EDT BUN Routine 07/18/2015 7:01 EDT ALT Routine 07/18/2015 7:01 EDT AST Routine 07/18/2015 7:01 EDT ALKALINE PHOSPHATASE Routine 07/18/2015 7:01 EDT HEMOGLOBIN A1C Routine 07/18/2015 7:01 EDT CREATININE Routine 07/18/2015 7:01 EDT BILIRUBIN, TOTAL Routine 07/18/2015 7:01 EDT ELECTROLYTES Routine 07/18/2015 7:01 EDT INPATIENT ADD-ON Routine 07/18/2015 1:10 EDT POCT US TEACHING STAT 07/18/2015 0:[address] CHEST (PE) PROTOCOL W CONTRAST 07/17/2015 20:57 EDT URINE MICROSCOPIC Routine 07/17/2015 19: 58 EDT URINALYSIS WITH MICROSCOPIC IF POSITIVE STAT 07/17/2015 19:58 EDT URINE CULTURE IF POSITIVE STAT 07/17/2015 19:58 EDT BACTERIAL CULTURE, URINE Routine 07/17/2015 19:[address] RENAL COLIC WO CONTRAST 07/17/2015 18:27 EDT CHEST PA AND LATERAL STAT 07/17/2015 16:52 EDT D-DIMER STAT 07/17/2015 15:23 EDT COMPLETE BLOOD COUNT AND DIFFERENTIAL STAT 07/17/2015 15:23 EDT REDRAW LABS Routine 07/17/2015 14:21 EDT PROFILE ED CARDIAC PACK STAT 07/17/2015 14:21 EDT ALT Routine 07/17/2015 14:21 EDT AST Routine 07/17/2015 14:21 EDT ALKALINE PHOSPHATASE Routine 07/17/2015 14:21 EDT BILIRUBIN, TOTAL Routine 07/17/2015 14:2 1 EDT REDRAW LABS Routine 07/17/2015 13:28 EDT PROFILE ED CARDIAC PACK STAT 07/17/2015 13:28 EDT LIPASE STAT 07/17/2015 13:28 EDT HEPATIC FUNCTION PANEL (ALB,ALK PHOS,ALT,AST,DBIL,TOT LUIS,TOT PROT) STAT 07/17/2015 13:28 EDT EKG 12-LEAD STAT 07/17/2015 13:11 EDT documented in this encounter Results * CREATININE (07/24/2015 14:31 EDT) Creatinine 0.69 0.52 - 1.04 mg/dl 07/24/2015 15:41 EDT [facility] Comment:Slight hemolysis GFR, Calculated 99 >60 ml/min/1.7 3m2 07/24/2015 15:41 EDT [facility] Comment: eGFR calculated using CKD-EPI equation for non Americans. Multiply eGFR by 1.16 for Americans. Blood specimen (specimen) BLOOD SPECIMEN / Unknown 07/24/2015 14:31 EDT 07/24/2015 14:55 EDT Gagandeep Plasencia MD CHEMISTRY & BLOOD G ORDERABLES Final Result Performing Organization Address [facility] Co de Phone Number [facility] [address] [place] [address] * ELECTROLYTES (07/24/2015 14:31 EDT) Sodium 138 136 - 145 mEq/L 07/24/2015 15:41 EDT [facility] Comment:Slight hemolysis Potassium 4.6 3.5 - 5.0 mEq/L 07/24/2015 15:41 EDT [facility] Comment: Slight hemolysis Hemolysis may elevate potassium result. Chloride 100 96 - 110 mEq/L 07/24/2015 15:41 EDT [facility] Comment:Slight hemolysis CO2 28 24 - 32 mEq/L 07/24/2015 15:41 T [facility] Comment:Slight hemolysis Blood specimen (specimen) BLOOD SPECIMEN / Unknown 07/24/2015 14:31 EDT 07/24/2015 14:55 EDT us Gagandeep Plasencia MD CHEMISTRY & BLOOD G ORDERABLES Final Result Performing Organization Address [facility] Co de Phone Number [facility] [address] [place] [address] * ECG REPORT - SCANNED (07/23/2015 6:32 EDT) 07/23/2015 6:32 EDT us Scan 2 Change Consultant PROCEDURE/MINOR SURGICAL OR DERABLES Final Result * BUN (07/21/2015 7:18 EDT) BUN 15 10 - 26 mg/dl 07/21/2015 7:56 EDT [facility] Blood specimen (specimen) BLOOD SPECIMEN / Unknown 07/21/2015 7:18 EDT 07/21/2015 7:28 EDT Benito Frankel MD CHEMISTRY & BLOOD GAS ORDERA BLES Final Result Performing Organization Address City/[facility]/ZIP Co de Phone Number [facility] [address] [place] [address] * CREATININE (07/21/2015 7:18 EDT) Creatinine 0.87 0.52 - 1.04 mg/dl 07/21/2015 7:56 EDT [facility] GFR, Calculated 76 >60 ml/min/1.7 3m2 07/21/2015 7:56 EDT [facility] Comment: eGFR calculated using CKD-EPI equation for non Americans. Multiply eGFR by 1.16 for Americans. Blood specimen (specimen) BLOOD SPECIMEN / Unknown 07/21/2015 7:18 EDT 07/21/2015 7:28 EDT Benito Frankel MD CHEMISTRY & BLOOD GAS ORDERA BLES Final Result Performing Organization Address City/[facility]/ZIP Co de Phone Number [facility] [address] [place] [id number] * MAGNESIUM (07/21/2015 7:18 EDT) Magnesium 1.9 1.7 - 2.8 mg/dl 07/21/2015 7:56 EDT [facility] Blood specimen (specimen) BLOOD SPECIMEN / Unknown 07/21/2015 7:18 EDT 07/21/2015 7:28 EDT Benito Frankel MD CHEMISTRY & BLOOD GAS ORDERA BLES Final Result Performing Organization Address [facility] de Phone Number [facility] [address] [place] [address] * ELECTROLYTES (07/21/2015 7:18 EDT) Pathologist [facility] Sodium 138 136 - 145 mEq/L 07/21/2015 7:56 EDT [facility] Potassium 4.4 3.5 - 5.0 mEq/L 07/21/2015 7:56 EDT [facility] Chloride 97 96 - 110 mEq/L 07/21/2015 7:56 EDT [facility] CO2 30 24 - 32 mEq/L 07/21/2015 7:56 EDT [facility] Blood specimen (specimen) BLOOD SPECIMEN / Unknown 07/21/2015 7:18 EDT 07/21/2015 7:28 EDT Benito Frankel MD CHEMISTRY & BLOOD GAS ORDERA BLES Final Result Performing Organization Address [facility] Co de Phone Number [facility] [address] [place] [address] * (ABNORMAL) HEMAGRAM AND DIFFERENTIAL (07/21/2015 7:18 EDT) Pathologist [facility] WBC 3.31(L) 4.0 - 12.4 K/cmm 07/21/2015 7:55 [facility] RBC 4.06 3.86 - 5.04 M/cmm 07/21/2015 7:55 [facility] Hemoglobin 11.5(L) 11.6 - 15.2 gm/dl 07/21/2015 7:55 T [facility] HCT 35.1 34.9 - 44.4 % 07/21/2015 7:55 [facility] MCV 86 81 - 98 fl 07/21/2015 7:55 [facility] MCH 28.3 26.7 - 33.3 pg 07/21/2015 7:55 [facility] MCHC 32.8 32.1 - 35.9 gm/dl 07/21/2015 7:55 [facility] RDW-CV 14.9(H) 11.7 - 14.6 % 07/21/2015 7:55 [facility] RDW-SD 44.6 37.6 - 50.3 fl 07/21/2015 7:55 [facility] PLT 79(L) 141 - 320 K/cmm 07/21/2015 7:55 [facility] MPV 8.4 7.5 - 11.2 fl 07/21/2015 7:55 [facility] % Neutrophils 72.3 45.5 - 79.7 % 07/21/2015 7:56 [facility] % Lymphocytes 15.0 15.0 - 46.8 % 07/21/2015 7:56 [facility] % Monocytes 10.0 1.8 - 12.0 % 07/21/2015 7:56 [facility] % Eosinophils 2.0 0.6 - 6.9 % 07/21/2015 7:56 [facility] % Basophils 0.7 0.2 - 1.4 % 07/21/2015 7:56 [facility] ABS Neutrophils 2.39 2.20 - 8.85 K/cmm 07/21/2015 7:56 [facility] ABS Lymphs 0.50(L) 1.09 - 3.30 K/cmm 07/21/2015 7:56 [facility] ABS Monocytes 0.33 0.1 - 0.8 K/cmm 07/21/2015 7:56 [facility] ABS Eosinophils 0.07 0.03 - 0.61 K/cmm 07/21/2015 7:56 [facility] ABS Basophils 0.03 0.01 - 0.11 K/cmm 07/21/2015 7:56 [facility] Type of Diff: Automated 07/21/2015 7:56 [facility] Blood specimen (specimen) BLOOD SPECIMEN / Unknown 07/21/2015 7:18 EDT 07/21/2015 7:28 EDT us Benito Frankel MD PACKAGES & DNA PROBE ORDERAB LES Final Result Performing Organization Address [facility] Co de Phone Number [facility] [address] [place] [address] * (ABNORMAL) C. DIFFICILE MOLECULAR DETECTION (07/19/2015 16:20 EDT) Result POSITIVE FOR C.DIFFICILE TOXIN BY PCR. PRESUMPTIVE POSITIVE FOR 027, NAP1, BI STRAIN.(AA) 07/19/2015 20:40 EDT [facility] Stool specimen (specimen) STOOL SPECIMEN / Unknown 07/19/2015 16:20 EDT 07/19/2015 19:38 EDT us Betty Rosario MD MICROBIOLOGY - GENERAL OR DERABLES Final Result Performing Organization Address [facility] de Phone Number [facility] [address] [place] [address] * ELECTROLYTES (07/19/2015 7:15 EDT) Sodium 137 136 - 145 mEq/L 07/19/2015 8:22 EDT [facility] Potassium 4.1 3.5 - 5.0 mEq/L 07/19/2015 8:22 EDT [facility] Chloride 98 96 - 110 mEq/L 07/19/2015 8:22 EDT [facility] CO2 31 24 - 32 mEq/L 07/19/2015 8:22 EDT [facility] Blood specimen (specimen) BLOOD SPECIMEN / Unknown 07/19/2015 7:15 EDT 07/19/2015 7:20 EDT us Benito Frankel MD CHEMISTRY & BLOOD GAS ORDERA BLES Final Result Performing Organization Address [facility] Co de Phone Number [facility] [address] [place] [address] * (ABNORMAL) HEMAGRAM (07/19/2015 7:15 EDT) WBC 2.05(L) 4.0 - 12.4 K/cmm 07/19/2015 8:17 [facility] RBC 3.75(L) 3.86 - 5.04 M/cmm 07/19/2015 8:17 [facility] Hemoglobin 10.6(L) 11.6 - 15.2 gm/dl 07/19/2015 8:17 [facility] HCT 32.2(L) 34.9 - 44.4 % 07/19/2015 8:17 [facility] MCV 86 81 - 98 fl 07/19/2015 8:17 [facility] MCH 28.3 26.7 - 33.3 pg 07/19/2015 8:17 [facility] MCHC 33.0 32.1 - 35.9 gm/dl 07/19/2015 8:17 [facility] RDW-CV 14.8(H) 11.7 - 14.6 % 07/19/2015 8:17 [facility] RDW-SD 43.8 37.6 - 50.3 fl 07/19/2015 8:17 [facility] PLT 70(L) 141 - 320 K/cmm 07/19/2015 8:17 [facility] MPV 8.4 7.5 - 11.2 fl 07/19/2015 8:17 [facility] Blood specimen (specimen) BLOOD SPECIMEN / Unknown 07/19/2015 7:15 EDT 07/19/2015 7:20 EDT us Benito Frankel MD HEMATOLOGY & PF4 ORDERABLES Final Result [facility] [address] [place] [address] * INPATIENT ADD-ON (07/18/2015 10:50 EDT) Tests to be added HEMOGLOBIN A1C,TOTAL BILI,ALT,AST,P ROTIME,ALK PHOS 07/18/2015 10:47 [facility] Number for problems [id number] 07/18/2015 11:03 [facility] Accession number [id number] PER DR ANGULO, CANCEL PRO ADDON REQUEST 11AM 07/18/2015 11:03 EDT [facility] TOPOGRAPHY UNKNOWN / Unknown 07/18/2015 10:50 EDT 07/18/2015 11:02 EDT us Benito Frankel MD HEMATOLOGY & PF4 ORDERABLES Final Result Performing Organization Address [facility] Co de Phone Number [facility] [address] [place] [address] * BILIRUBIN, TOTAL (07/18/2015 7:01 EDT) Bilirubin, Total 0.5 <1.4 mg/dl 07/18/2015 11:36 EDT [facility] Comment:Add on order BLOOD SPECIMEN / Unknown 07/18/2015 7:01 EDT 07/18/2015 7:13 EDT us David Persaud MD CHEMISTRY & BLOOD GAS ORDERAB LES Final Result Performing Organization Address [facility] de Phone Number [facility] [address] [place] [address] * HEMOGLOBIN A1C (07/18/2015 7:01 EDT) Hemoglobin A1C 5.8 % 07/18/2015 15:14 EDT [facility] Comment: Reference Range: <5.7% Normal 5.7-6.4% Increased risk for diabetes =>6.5% Diagnostic for diabetes (if confirmed) The A1c goal for non adults in general is <7%. The A1c goal for selected patients may be significantly lower than 7% if this can be achieved without significant hypoglycemia or other adverse effects of treatment. Est Avg Glucose 120 mg/dl 5 15:14 EDT [facility] Comment: eAG represents the A1c result expressed as average glucose in mg/dl. BLOOD SPECIMEN / Unknown 07/18/2015 7:01 EDT 07/18/2015 7:13 EDT us David Persaud MD CHEMISTRY & BLOOD GAS ORDERAB LES Final Result Performing Organization Address City/[facility]/ZIP Co de Phone Number [facility] [address] [place] [address] * AST (07/18/2015 7:01 EDT) AST 24 15 - 46 U/L 07/18/2015 11:36 EDT [facility] Comment:Add on order BLOOD SPECIMEN / Unknown 07/18/2015 7:01 EDT 07/18/2015 7:13 EDT us David Persaud MD CHEMISTRY & BLOOD GAS ORDERAB LES Final Result Performing Organization Address [facility] Co de Phone Number [facility] [address] [place] [address] * ALT (07/18/2015 7:01 EDT) ALT 22 <53 U/L 07/18/2015 11:36 EDT [facility] Comment:Add on order BLOOD SPECIMEN / Unknown 07/18/2015 7:01 EDT 07/18/2015 7:13 EDT us David Persaud MD CHEMISTRY & BLOOD GAS ORDERAB LES Final Result Performing Organization Address [facility]/ZIP Co de Phone Number [facility] [address] [place] [address] * ALKALINE PHOSPHATASE (07/18/2015 7:01 EDT) Total Alkaline Phosphatase 72 38 - 126 U/L 07/18/2015 11:36 EDT [facility] Comment:Add on order BLOOD SPECIMEN / Unknown 07/18/2015 7:01 EDT 07/18/2015 7:13 EDT us David Persaud MD CHEMISTRY & BLOOD GAS ORDERAB LES Final Result Performing Organization Address City/[facility]/ZIP Co de Phone Number [facility] [address] [place] [address] * (ABNORMAL) HEMAGRAM (07/18/2015 7:01 EDT) WBC 1.84(L) 4.0 - 12.4 K/cmm 07/18/2015 7:28 T [facility] RBC 3.72(L) 3.86 - 5.04 M/cmm 07/18/2015 7:28 [facility] Hemoglobin 10.6(L) 11.6 - 15.2 gm/dl 07/18/2015 7:28 [facility] HCT 31.9(L) 34.9 - 44.4 % 07/18/2015 7:28 [facility] MCV 86 81 - 98 fl 07/18/2015 7:28 [facility] MCH 28.4 26.7 - 33.3 pg 07/18/2015 7:28 [facility] MCHC 33.2 32.1 - 35.9 gm/dl 07/18/2015 7:28 [facility] RDW-CV 14.7(H) 11.7 - 14.6 % 07/18/2015 7:28 [facility] RDW-SD 43.8 37.6 - 50.3 fl 07/18/2015 7:28 [facility] PLT 64(L) 141 - 320 K/cmm 07/18/2015 7:28 [facility] MPV 8.1 7.5 - 11.2 fl 07/18/2015 7:28 [facility] Blood specimen (specimen) BLOOD SPECIMEN / Unknown 07/18/2015 7:01 EDT 07/18/2015 7:13 EDT us Trace C Hung PHIPPS HEMATOLOGY & PF4 ORDERABLES F inal Result [facility] [address] [place] [address] * CREATININE (07/18/2015 7:01 EDT) Creatinine 0.80 0.52 - 1.04 mg/dl 07/18/2015 7:42 [facility] GFR, Calculated 84 >60 ml/min/1.7 3m2 07/18/2015 7:42 EDT [facility] Comment: eGFR calculated using CKD-EPI equation for non Americans. Multiply eGFR by 1.16 for Americans. Blood specimen (specimen) BLOOD SPECIMEN / Unknown 07/18/2015 7:01 EDT 07/18/2015 7:13 EDT us David Persaud MD CHEMISTRY & BLOOD GAS ORDERAB LES Final Result Performing Organization Address [facility] Co de Phone Number [facility] [address] [place] [address] * (ABNORMAL) BUN (07/18/2015 7:01 EDT) BUN 4(L) 10 - 26 mg/dl 07/18/2015 7:42 EDT [facility] Blood specimen (specimen) BLOOD SPECIMEN / Unknown 07/18/2015 7:01 EDT 07/18/2015 7:13 EDT us Trace Salvador Persaud MD CHEMISTRY & BLOOD GAS ORDERAB LES Final Result Performing Organization Address [facility] de Phone Number [facility] [address] [place] [address] * ELECTROLYTES (07/18/2015 7:01 EDT) Sodium 138 136 - 145 mEq/L 07/18/2015 7:42 EDT [facility] Potassium 3.6 3.5 - 5.0 mEq/L 07/18/2015 7:42 EDT [facility] Chloride 102 96 - 110 mEq/L 07/18/2015 7:42 EDT [facility] CO2 29 24 - 32 mEq/L 07/18/2015 7:42 EDT [facility] Blood specimen (specimen) BLOOD SPECIMEN / Unknown 07/18/2015 7:01 EDT 07/18/2015 7:13 EDT us David Persaud MD CHEMISTRY & BLOOD GAS ORDERAB LES Final Result Performing Organization Address [facility] Co de Phone Number [facility] [address] [place] [address] * INPATIENT ADD-ON (07/18/2015 1:10 EDT) Tests to be added ALK PHOS,ALT,A ST,TOTAL BILI 07/18/2015 1:08 EDT [facility] Number for problems Not Given 07/18/2015 1:12 EDT [facility] Accession number [id number] 07/18/2015 1:12 EDT [facility] TOPOGRAPHY UNKNOWN / Unknown 07/18/2015 1:10 EDT 07/18/2015 1:12 EDT us David Persaud MD HEMATOLOGY & PF4 ORDERABLES F inal Result Performing Organization Address [facility] Co de Phone Number [facility] [address] [place] [address] * POCT ED TEACHING (07/18/2015 0:26 EDT) Anatomical Region Laterality Modality Other 07/18/2015 0:26 EDT Narrative 07/18/2015 0:26 EDT Non Reportable Exam 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 Status post laser lithotripsy, stenting, now chest pain and shortness of breath Comparison: None Technique: A contrast-enhanced helical CT acquisition of the chest from apices through the lung bases was performed with a reconstructed slice thickness of 0.9 mm with overlapping 0.45 mm intervals following the intravenous administration of ??75-100 cc of 370 mg% nonionic contrast injected at a rate of 4-5 cc/second. ??A small test bolus ??was used to time image acquisition. Scans were reviewed on a dedicated PACS workstation for analysis. Findings: Study quality is good with adequate opacification of the pulmonary arteries and no significant respiratory motion artifact. No evidence of pulmonary thromboembolic disease is present. Mildly enlarged lymph nodes are present in the paratracheal region. ?? The mediastinum is otherwise normal. Basilar interstitial thickening and groundglass opacities likely reflect mild pulmonary edema. Bandlike areas of atelectasis are present in both bases. There are no areas of consolidation. Images through the upper portion of the abdomen demonstrate interval removal of the left renal stent since earlier today. The spleen and portal vein and splenic vein are massively enlarged. The liver is cirrhotic. The bones and soft tissues are unremarkable. Impression: 1. No evidence of pulmonary emboli 2. Pulmonary edema The findings were discussed by Mohan Benton MD with Davdi Persaud MD on 07/18/2015 3:31 AM I have personally reviewed the images and the above interpretation and agree with the findings. Procedure Note Colt Burciaga MD - 07/18/2015 CT CHEST W CONTRAST (PE) PROTOCOL 07/17/2015 8:57 PM Signs and Symptoms/Comments: Status post laser lithotripsy, stenting, now chest pain and shortness of breath Comparison: None Technique: A contrast-enhanced helical CT acquisition of the chest from apices through the lung bases was performed with a reconstructed slice thickness of 0.9 mm with overlapping 0.45 mm intervals following the intravenous administration of 75-100 cc of 370 mg% nonionic contrast injected at a rate of 4-5 cc/second. A small test bolus was used to time image acquisition. Scans were reviewed on a dedicated PACS workstation for analysis. Findings: Study quality is good with adequate opacification of the pulmonary arteries and no significant respiratory motion artifact. No evidence of pulmonary thromboembolic disease is present. Mildly enlarged lymph nodes are present in the paratracheal region. The mediastinum is otherwise normal. Basilar interstitial thickening and groundglass opacities likely reflect mild pulmonary edema. Bandlike areas of atelectasis are present in both bases. There are no areas of consolidation. Images through the upper portion of the abdomen demonstrate interval removal of the left renal stent since earlier today. The spleen and portal vein and splenic vein are massively enlarged. The liver is cirrhotic. The bones and soft tissues are unremarkable. Impression: 1. No evidence of pulmonary emboli 2. Pulmonary edema The findings were discussed by Mohan Benton MD with David Persaud MD on 07/18/2015 3:31 AM I have personally reviewed the images and the above interpretation and agree with the findings. us Yvette Jacobo MD IMG CT ORDERABLES Final R esult * BACTERIAL CULTURE, URINE (07/17/2015 19:58 EDT) Result No growth 07/19/2015 8:18 EDT [facility] URINE / Unknown 07/17/2015 1 9:58 EDT 07/17/2015 20:49 EDT us Yvette Jacobo MD MICROBIOLOGY - GENERAL OR DERABLES Final Result [facility] [address] [place] [address] * URINE MICROSCOPIC (07/17/2015 19:58 EDT) WBC, UA less than 1 0 - 5 /HPF 07/17/2015 20:30 EDT [facility] RBC, UA 10 to 50 0 - 5 /HPF 07/17/2015 20:30 T [facility] Squam Epithel, UA None seen None seen /HPF 07/17/2015 20:30 EDT [facility] Renal Epithel, UA None seen None seen /HPF 07/17/2015 20:30 T [facility] Bacteria, UA None seen None seen /HPF 07/17/2015 20:30 T [facility] Crystals, UA None seen /HPF 07/17/2015 20:30 T [facility] Hyaline Casts, UA None seen /LPF 07/17/2015 20:30 EDT [facility] UA Comment Microscopic results 07/17/2015 20:30 EDT [facility] Comment: are unreliable on urines unrefrig >2hrs or refrig >8hrs. Mucus, UA Present 07/17/2015 20:30 EDT [facility] URINE / Unknown 07/17/2015 1 9:58 EDT 07/17/2015 20:05 EDT us Segundo Dickerson MD URINALYSIS ORDERABLES Fin al Result Performing Organization Address [facility] Co de Phone Number [facility] [address] [place] [address] * URINE CULTURE IF UA POSITIVE - NON POCT URINALYSIS ONLY (07/17/2015 19:58 EDT) Culture if Indicated Culture indicated by urinalysis results. 07/17/2015 20:30 EDT [facility] Urine specimen (specimen) TOPOGRAPHY UNKNOWN / Unknown 07/17/2015 19:58 EDT 07/17/2015 20:05 EDT us Segundo Dickerson MD MICROBIOLOGY - GENERAL OR DERABLES Final Result Performing Organization Address [facility] de Phone Number [facility] [address] [place] [address] * (ABNORMAL) URINALYSIS WITH REFLEX MICROSCOPIC (07/17/2015 19:58 EDT) Color, UA Yellow 07/17/2015 20:30 EDT [facility] Clarity, UA Clear 07/17/2015 20:30 EDT [facility] Glucose, UA Neg Neg 07/17/2015 20:30 EDT [facility] Bilirubin, UA Neg Neg 07/17/2015 20:30 EDT [facility] Ketones, UA Neg Neg 07/17/2015 20:30 EDT [facility] Specific Erwin, Urine 1.010 1.001 - 1.035 07/17/2015 20:30 EDT [facility] Blood, UA 3+(A) Neg 07/17/2015 20:30 EDT [facility] pH, UA 6.5 4.6 - 8.0 07/17/2015 20:30 EDT [facility] Protein, UA 1+(A) Neg 07/17/2015 20:30 EDT [facility] Urobilinogen, UA 1.0 0.2 - 1.0 E.U./dl 07/17/2015 20:30 EDT [facility] Nitrite, UA Pos(A) Neg 07/17/2015 20:30 EDT [facility] Leuk Esterase Trace(A) Neg 07/17/2015 20:30 EDT [facility] Urine specimen (specimen) URINE / Unknown 07/17/2015 19:58 EDT 07/17/2015 20:05 EDT Segundo Dickerson MD URINALYSIS ORDERABLES Fin al Result Performing Organization Address City/State/[facility] Co de Phone Number [facility] [address] [place] [address] * CT RENAL COLIC (07/17/2015 18:27 EDT) Anatomical Region Laterality Modality Other 07/17/2015 18:2 7 EDT 07/18/2015 12:50 EDT Narrative 07/18/2015 12:[address] RENAL COLIC ??07/17/2015 6:27 PM Signs and Symptoms/Comments: ??Recent left sided ureteral stenting Comparison:CT renal colic July 12, 2015 Technique: Using neither oral nor intravenous contrast material, 3 mm sections were made from just above the kidneys through the urinary bladder. Findings: A double-pigtail left ureteral stent is in appropriate position. The right and left kidneys are unremarkable there is no hydronephrosis. A calcification anterior to the stent at pelvic brim, axial 194, likely gonadal vein phlebolith, also present on prior. A large distal left ureteral calculus seen on prior is no longer present. Therefore there are no urinary tract calculi. Large gonadal vein phlebolith present on the right, axial 179. The liver has a nodular contour consistent with cirrhosis and there is evidence of portal hypertension with enlarged portal and splenic veins, collaterals, and splenomegaly. The unenhanced pancreas and adrenals are unremarkable. The gallbladder is absent. There is mesh from prior ventral hernia repair. No free air or free fluid in the abdomen or pelvis. The unopacified bowel shows no evidence of obstruction. Bandlike atelectasis is present at the lung bases and bibasilar groundglass opacities likely reflect mild pulmonary edema. The bones are unremarkable. Impression 1. Left ureteral stent in appropriate position. 2. No hydronephrosis. No urinary tract calculi. 3. Cirrhosis with portal hypertension and splenomegaly, as seen on recent CT. 4. Prior cholecystectomy. No biliary ductal dilatation. These findings were discussed with YVETTE JACOBO MD by Dr. Jordan Burns at 7:15 on 07/17/2015. I have personally reviewed the images and the above interpretation and agree with the findings. Procedure Note Scottie Xavier MD - 07/18/2015 CT RENAL COLIC 07/17/2015 6:27 PM Signs and Symptoms/Comments: Recent left sided ureteral stenting Comparison:CT renal colic July 12, 2015 Technique: Using neither oral nor intravenous contrast material, 3 mm sections were made from just above the kidneys through the urinary bladder. Findings: A double-pigtail left ureteral stent is in appropriate position. The right and left kidneys are unremarkable there is no hydronephrosis. A calcification anterior to the stent at pelvic brim, axial 194, likely gonadal vein phlebolith, also present on prior. A large distal left ureteral calculus seen on prior is no longer present. Therefore there are no urinary tract calculi. Large gonadal vein phlebolith present on the right, axial 179. The liver has a nodular contour consistent with cirrhosis and there is evidence of portal hypertension with enlarged portal and splenic veins, collaterals, and splenomegaly. The unenhanced pancreas and adrenals are unremarkable. The gallbladder is absent. There is mesh from prior ventral hernia repair. No free air or free fluid in the abdomen or pelvis. The unopacified bowel shows no evidence of obstruction. Bandlike atelectasis is present at the lung bases and bibasilar groundglass opacities likely reflect mild pulmonary edema. The bones are unremarkable. Impression 1. Left ureteral stent in appropriate position. 2. No hydronephrosis. No urinary tract calculi. 3. Cirrhosis with portal hypertension and splenomegaly, as seen on recent CT. 4. Prior cholecystectomy. No biliary ductal dilatation. These findings were discussed with YVETTE JACOBO MD by Dr. Jordan Burns at 7:15 on 07/17/2015. I have personally reviewed the images and the above interpretation and agree with the findings. Yvette Jacobo MD IMG CT ORDERABLES Final R esult * CHEST PA AND LATERAL (07/17/2015 16:52 EDT) Anatomical Region Laterality Modality Other 07/17/2015 16:5 2 EDT 07/17/2015 17:30 EDT Narrative 07/17/2015 17:30 EDT CHEST PA AND LATERAL ??07/17/2015 4:52 PM Clinical History/Comments: Shortness of breath, recent surgery COMPARISON: None. TECHNIQUE: Frontal and lateral views of the chest were performed. FINDINGS: Soft tissues: ??Normal. Bones: No significant abnormalities. Cardiac and mediastinal contours:Normal. Lungs: There is new airspace opacity in the left lower lobe concerning for pneumonia. There are increased basilar interstitial opacities with indistinctness of the pulmonary vasculature. Pleura/diaphragms:No pleural abnormality is seen. IMPRESSION: 1. Left lower lobe consolidation concerning for possible pneumonia. 2. Findings suggestive of pulmonary edema. I have personally reviewed the images and the above interpretation and agree with the findings. Procedure Note Colt Burciaga MD - 07/17/2015 CHEST PA AND LATERAL 07/17/2015 4:52 PM Clinical History/Comments: Shortness of breath, recent surgery COMPARISON: None. TECHNIQUE: Frontal and lateral views of the chest were performed. FINDINGS: Soft tissues: Normal. Bones: No significant abnormalities. Cardiac and mediastinal contours:Normal. Lungs: There is new airspace opacity in the left lower lobe concerning for pneumonia. There are increased basilar interstitial opacities with indistinctness of the pulmonary vasculature. Pleura/diaphragms:No pleural abnormality is seen. IMPRESSION: 1. Left lower lobe consolidation concerning for possible pneumonia. 2. Findings suggestive of pulmonary edema. I have personally reviewed the images and the above interpretation and agree with the findings. Yvette Jacobo MD IM DIAGNOSTIC IMAGING OR DERABLES Final Result * (ABNORMAL) D-DIMER (07/17/2015 15:23 EDT) D-Dimer 437(H) <230 ng/mL 07/17/2015 16:03 [facility] Comment:CUTOFF VALUE FOR THE EXCLUSION OF DVT and PE: 230 ng/mL D-dimer units Blood specimen (specimen) BLOOD SPECIMEN / Unknown 07/17/2015 15:23 EDT 07/17/2015 15:44 EDT us Yvette Jacobo MD HEMATOLOGY & PF4 ORDERABL ES Final Result [facility] [address] [place] [address] * (ABNORMAL) HEMAGRAM AND DIFFERENTIAL (07/17/2015 15:23 EDT) Pathologist [facility] WBC 1.94(L) 4.0 - 12.4 K/cmm 07/17/2015 15:51 [facility] RBC 3.81(L) 3.86 - 5.04 M/cmm 07/17/2015 15:51 [facility] Hemoglobin 10.8(L) 11.6 - 15.2 gm/dl 07/17/2015 15:51 [facility] HCT 32.4(L) 34.9 - 44.4 % 07/17/2015 15:51 [facility] MCV 85 81 - 98 fl 07/17/2015 15:51 [facility] MCH 28.5 26.7 - 33.3 pg 07/17/2015 15:51 [facility] MCHC 33.5 32.1 - 35.9 gm/dl 07/17/2015 15:51 [facility] RDW-CV 15.0(H) 11.7 - 14.6 % 07/17/2015 15:51 [facility] RDW-SD 44.2 37.6 - 50.3 fl 07/17/2015 15:51 [facility] PLT 60(L) 141 - 320 K/cmm 07/17/2015 15:51 [facility] MPV 7.7 7.5 - 11.2 fl 07/17/2015 15:51 [facility] Neutrophils 65.0 45.5 - 79.7 % 07/17/2015 16:29 [facility] % Bands 3.0 % 07/17/2015 16:29 [facility] Lymphocytes 25.0 15.0 - 46.8 % 07/17/2015 16:29 [facility] Monocytes 4.0 1.8 - 12.0 % 07/17/2015 16:29 [facility] Eosinophils 3.0 0.6 - 6.9 % 07/17/2015 16:29 [facility] ABS Neutrophils 1.25(L) 2.20 - 8.85 K/cmm 07/17/2015 16:29 [facility] ABS Bands 0.06 K/cmm 07/17/2015 16:29 [facility] ABS Lymphs 0.49(L) 1.09 - 3.30 K/cmm 07/17/2015 16:29 [facility] ABS Monocytes 0.08(L) 0.1 - 0.8 K/cmm 07/17/2015 16:29 [facility] ABS Eosinophils 0.06 0.03 - 0.61 K/cmm 07/17/2015 16:29 [facility] Toxic Granulation Present 07/17/2015 16:29 [facility] Vacuolization Present 07/17/2015 16:29 [facility] Type of Diff: Manual 07/17/2015 16:29 [facility] Differential Comment Rev'd by Pathologist 07/17/2015 17:12 [facility] Blood specimen (specimen) BLOOD SPECIMEN / Unknown 07/17/2015 15:23 EDT 07/17/2015 15:44 EDT us Yvette Jacobo MD PACKAGES & DNA PROBE DEMI CARDENAS Final Result [facility] [address] [place] [address] * BILIRUBIN, TOTAL (07/17/2015 14:21 EDT) Bilirubin, Total 0.7 <1.4 mg/dl 07/18/2015 1:39 EDT [facility] Comment: Slight hemolysis Results may be affected due to hemolysis. BLOOD SPECIMEN / Unknown 07/17/2015 14:21 EDT 07/17/2015 14:28 EDT us Yvette Jacobo MD CHEMISTRY & BLOOD GAS ORD ERABLES Final Result [facility] [address] [place] [address] * AST (07/17/2015 14:21 EDT) Pathologist [facility] AST 31 15 - 46 U/L 07/18/2015 1:39 EDT [facility] Comment: Slight hemolysis Results may be affected due to hemolysis. BLOOD SPECIMEN / Unknown 07/17/2015 14:21 EDT 07/17/2015 14:28 EDT us Yvette Jacobo MD CHEMISTRY & BLOOD GAS ORD ERABLES Final Result [facility] [address] [place] [address] * ALT (07/17/2015 14:21 EDT) Pathologist [facility] ALT 16 <53 U/L 07/18/2015 1:39 EDT [facility] Comment: Slight hemolysis Results may be affected due to hemolysis. BLOOD SPECIMEN / Unknown 07/17/2015 14:21 EDT 07/17/2015 14:28 EDT us Yvette Jacobo MD CHEMISTRY & BLOOD GAS ORD ERABLES Final Result [facility] [address] [place] [address] * ALKALINE PHOSPHATASE (07/17/2015 14:21 EDT) Pathologist [facility] Total Alkaline Phosphatase 67 38 - 126 U/L 07/18/2015 1:39 EDT [facility] Comment: Slight hemolysis Hemolysis will decrease ALKP result Suggest re-evaluation if clinically indicated BLOOD SPECIMEN / Unknown 07/17/2015 14:21 EDT 07/17/2015 14:28 EDT Yvette Jacobo MD CHEMISTRY & BLOOD GAS ORD ERABLES Final Result Performing Organization Address City/[facility]/ZIP Co de Phone Number [facility] [address] [place] [address] * REDRAW LABS (07/17/2015 14:21 EDT) [facility] Redraw EDTA PURPLE TOP FOR CBC DIFF AND CITRATE BLUE HOLD FOR COAG ARE BOTH CLOTTED. 07/17/2015 14:33 EDT [facility] TOPOGRAPHY UNKNOWN / Unknown 07/17/2015 14:21 EDT 07/17/2015 14:28 EDT us Yvette Jacobo MD LAB INFO SERVICE AND SUPP ORT & PHONE RESULT Final Result Performing Organization Address [facility] Co de Phone Number [facility] [address] [place] [address] * (ABNORMAL) PROFILE ED CARDIAC PACK (07/17/2015 14:21 EDT) [facility] Sodium 138 136 - 145 mEq/L 07/17/2015 14:43 EDT [facility] Comment:Slight hemolysis Potassium 3.6 3.5 - 5.0 mEq/L 07/17/2015 14:43 T [facility] Comment: Slight hemolysis Hemolysis may elevate potassium result. Chloride 100 96 - 110 mEq/L 07/17/2015 14:43 T [facility] Comment:Slight hemolysis CO2 31 24 - 32 mEq/L 07/17/2015 14:43 [facility] Comment:Slight hemolysis BUN 7(L) 10 - 26 mg/dl 07/17/2015 14:43 T [facility] Comment: Slight hemolysis Results may be affected due to hemolysis. Creatinine 0.77 0.52 - 1.04 mg/dl 07/17/2015 14:43 [facility] Comment:Slight hemolysis GFR, Calculated 88 >60 ml/min/1 .73m2 07/17/2015 14:43 [facility] Comment: eGFR calculated using CKD-EPI equation for non Americans. Multiply eGFR by 1.16 for Americans. Magnesium 1.7 1.7 - 2.8 mg/dl 07/17/2015 14:43 [facility] Comment: Slight hemolysis Results may be affected due to hemolysis. WBC Clotted Specimen unsuitable for analysis. Credit Issued 4.0 - 12.4 K/cmm [facility] RBC Clotted Specimen unsuitable for analysis. Credit Issued 3.86 - 5.04 [facility] Hemoglobin Clotted Specimen unsuitable for analysis. Credit Issued 11.6 - 15.2 gm/dl [facility] HCT Clotted Specimen unsuitable for analysis. Credit Issued 34.9 - 44.4 % [facility] MCV Clotted Specimen unsuitable for analysis. Credit Issued 81 - 98 fl [facility] MCH Clotted Specimen unsuitable for analysis. Credit Issued 26.7 - 33.3 pg [facility] Hypochromia Clotted Specimen unsuitable for analysis. Credit Issued [facility] MCHC Clotted Specimen unsuitable for analysis. Credit Issued 32.1 - 35.9 gm/dl [facility] RDW-CV Clotted Specimen unsuitable for analysis. Credit Issued 11.7 - 14.6 % [facility] RDW-SD Clotted Specimen unsuitable for analysis. Credit Issued 37.6 - 50.3 fl [facility] Anisocytosis Clotted Specimen unsuitable for analysis. Credit Issued [facility] PLT Clotted Specimen unsuitable for analysis. Credit Issued 141 - 320 K/cmm [facility] MPV Clotted Specimen unsuitable for analysis. Credit Issued 7.5 - 11.2 fl [facility] Condition Clotted Specimen unsuitable for analysis. Credit Issued [facility] Neutrophils Clotted Specimen unsuitable for analysis. Credit Issued 45.5 - 79.7 % [facility] Troponin I (ng/mL) <0.034 <0.034 ng/ml 07/17/2015 14:54 EDT [facility] Comment: Slight hemolysis Results may be affected due to hemolysis. Glucose, Screening 102(H) 70 - 100 mg/dl 07/17/2015 14:43 EDT [facility] Comment: Slight hemolysis Results may be affected due to hemolysis. Hold Blue Top Clotted Specimen unsuitable for analysis. Credit Issued [facility] Blood specimen (specimen) BLOOD SPECIMEN / Unknown 07/17/2015 14:21 EDT 07/17/2015 14:28 EDT Yvette Jacobo MD PACKAGES & DNA PROBE ORDE RABLES Final Result Performing Organization Address [facility] Co de Phone Number [facility] [address] [place] [address] * REDRAW LABS (07/17/2015 13:28 EDT) Redraw COAG BLUE TOP CLOTTED PLEASE REDRAW FOR D DIMER. THANKS 07/17/2015 13:52 EDT [facility] TOPOGRAPHY UNKNOWN / Unknown 07/17/2015 13:28 EDT 07/17/2015 13:41 EDT Yvette Jacobo MD LAB INFO SERVICE AND SUPP ORT & PHONE RESULT Final Result Performing Organization Address [facility] Co de Phone Number [facility] [address] [place] [address] * LIPASE (07/17/2015 13:28 EDT) Lipase 43 <251 U/L 07/17/2015 14:05 EDT [facility] Comment:Slight hemolysis Blood specimen (specimen) BLOOD SPECIMEN / Unknown 07/17/2015 13:28 EDT 07/17/2015 13:41 EDT Yvette Jacobo MD CHEMISTRY & BLOOD GAS ORD ERABLES Final Result Performing Organization Address City/[facility]/ZIP Co de Phone Number [facility] [address] [place] [address] * HEPATIC FUNCTION PANEL (ALB,ALK PHOS,ALT,AST,DBIL,TOT LUIS,TOT PROT) (07/17/2015 13:28 EDT) Albumin 3.4 3.4 - 4.9 g/dl 07/17/2015 14:05 [facility] Comment: Slight hemolysis Results may be affected due to hemolysis. Total Protein 6.8 6.3 - 8.2 g/dl 07/17/2015 14:05 T [facility] Comment: Slight hemolysis Results may be affected due to hemolysis. Total Alkaline Phosphatase 62 38 - 126 U/L 07/17/2015 14:05 [facility] Comment: Slight hemolysis Hemolysis will decrease ALKP result Suggest re-evaluation if clinically indicated ALT 29 <53 U/L 07/17/2015 14:05 [facility] Comment: Slight hemolysis Results may be affected due to hemolysis. AST 34 15 - 46 U/L 07/17/2015 14:05 [facility] Comment: Slight hemolysis Results may be affected due to hemolysis. Unconjugated Bilirubin 0.5 0.0 - 1.1 mg/dl 07/17/2015 14:05 [facility] Comment: Slight hemolysis Results may be affected due to hemolysis. Conjugated Bilirubin 0.0 0.0 - 0.3 mg/dl 07/17/2015 14:05 [facility] Comment: Slight hemolysis Results may be affected due to hemolysis. Bilirubin, Total 0.7 <1.4 mg/dl 07/17/20 15 14:05 [facility] Comment: Slight hemolysis Results may be affected due to hemolysis. Blood specimen (specimen) BLOOD SPECIMEN / Unknown 07/17/2015 13:28 EDT 07/17/2015 13:41 EDT us Yvette Jacobo MD CHEMISTRY & BLOOD GAS ORD ERABLES Final Result [facility] [address] [place] [address] * (ABNORMAL) PROFILE ED CARDIAC PACK (07/17/2015 13:28 EDT) Sodium 137 136 - 145 mEq/L 07/17/2015 14:05 [facility] Comment:Slight hemolysis Potassium 3.9 3.5 - 5.0 mEq/L 07/17/2015 14:05 [facility] Comment: Slight hemolysis Hemolysis may elevate potassium result. Chloride 99 96 - 110 mEq/L 07/17/2015 14:05 [facility] Comment:Slight hemolysis CO2 27 24 - 32 mEq/L 07/17/2015 14:05 [facility] Comment:Slight hemolysis BUN 7(L) 10 - 26 mg/dl 07/17/2015 14:05 [facility] Comment: Slight hemolysis Results may be affected due to hemolysis. Creatinine 0.76 0.52 - 1.04 mg/dl 07/17/2015 14:05 [facility] Comment:Slight hemolysis GFR, Calculated 89 >60 ml/min/1. 73m2 07/17/2015 14:05 [facility] Comment: eGFR calculated using CKD-EPI equation for non Americans. Multiply eGFR by 1.16 for Americans. Magnesium 1.7 1.7 - 2.8 mg/dl 07/17/2015 14:05 [facility] Comment: Slight hemolysis Results may be affected due to hemolysis. WBC CBCDIFF CLOTTED 4.0 - 12.4 K/cmm [facility] RBC CBCDIFF CLOTTED 3.86 - 5.04 M/cmm [facility] Hemoglobin CBCDIFF CLOTTED 11.6 - 15.2 gm/dl [facility] HCT CBCDIFF CLOTTED 34.9 - 44.4 % [facility] MCV CBCDIFF CLOTTED 81 - 98 fl [facility] MCH CBCDIFF CLOTTED 26.7 - 33.3 pg [facility] Hypochromia CBCDIFF CLOTTED [facility] MCHC CBCDIFF CLOTTED 32.1 - 35.9 gm/dl [facility] RDW-CV CBCDIFF CLOTTED 11.7 - 14.6 % [facility] RDW-SD CBCDIFF CLOTTED 37.6 - 50.3 fl [facility] Anisocytosis CBCDIFF CLOTTED [facility] PLT CBCDIFF CLOTTED 141 - 320 K/cmm [facility] MPV CBCDIFF CLOTTED 7.5 - 11.2 fl [facility] Condition CBCDIFF CLOTTED [facility] Neutrophils CBCDIFF CLOTTED 45.5 - 79.7 % [facility] Troponin I (ng/mL) <0.034 <0.034 ng/ml 07/17/2015 14:16 EDT [facility] Comment: Slight hemolysis Results may be affected due to hemolysis. Glucose, Screening 127(H) 70 - 100 mg/dl 07/17/2015 14:05 EDT [facility] Comment: Slight hemolysis Results may be affected due to hemolysis. Hold Blue Top Clotted 07/17/2015 13:57 EDT [facility] Comment: Specimen unsuitable for analysis. Credit Issued Blood specimen (specimen) BLOOD SPECIMEN / Unknown 07/17/2015 13:28 EDT 07/17/2015 13:41 EDT us Yvette Jacobo MD PACKAGES & DNA PROBE DEMI CARDENAS Final Result [facility] [address] [place] [address] * EKG 12-LEAD (07/17/2015 13:11 EDT) 07/17/2015 13:1 1 EDT Narrative [facility] E[facility] - 07/21/2015 9:37 EDT ?[facility] ? Test Date: ?2015-07-17 Pat Name: ? PHYLISS BOOTHE ?Department: ?? ED ? Room: ? Gender: ? 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 Requested By: ODALIS SANCHEZ Order Number: [id number] ? Reading MD: ?? JOHNNIE JULIEN MD ? Measurements Intervals ?[place] ? Rate: ? 72 ? P: ?51 GA: ? 147 ?QRS: ?63 QRSD: ? 110 ?T: ?46 QT: ? 394 ? QTc: ?433 ? Interpretive Statements SINUS RHYTHM WITH SINUS ARRHYTHMIA I reviewed the tracing and have either agreed or edited the findings in this report. Electronically Signed On 07-21-15 09:37:08 EDT by JOHNNIE JULIEN MD. 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 Electronically Signed On 07-21-15 09:37:08 EDT by JOHNNIE NEWTON. Yvette Jacobo MD CARDIAC ECG ORDERABLES nal Result [facility] EKG documented in this encounter Visit Diagnoses Diagnosis Pyelonephritis- Primary Pyelonephritis, unspecified Intractable vomiting with nausea, vomiting of unspecified type Other chest pain Nausea and vomiting, vomiting of unspecified type Kidney stone Calculus of kidney NAFLD (nonalcoholic fatty liver disease) Other chronic nonalcoholic liver disease Asthma, unspecified asthma severity, uncomplicated Acute left flank pain Abdominal pain, unspecified site Pyelonephritis Pyelonephritis, unspecified Diarrhea C. difficile colitis Intestinal infection due to clostridium difficile Pancytopenia (HCC-CMS) Other pancytopenia Nausea with vomiting Chest pain Chest pain, unspecified Pancytopenia (HCC-CMS) Other pancytopenia Acute left flank pain Abdominal pain, unspecified site Mild persistent asthma without complication Unspecified asthma NAFLD (nonalcoholic fatty liver disease) Other chronic nonalcoholic liver disease Splenomegaly C. difficile colitis Intestinal infection due to clostridium difficile documented in this encounter Administered Medications Inactive Administered Medications - up to 3 most recent administrations Medication Order MAR Action Action Date Dose Rate Site albuterol inhaler 2 Puff 2 Puff, inhalation, EVERY 4 HOURS, First dose (after last reorder) on Tue07/18/15 at 0200, Until Discontinued, Routine Given 07/18/2015 18:47 EDT 2 Puffs Given 07/18/2015 13:41 EDT 2 Puffs Given 07/18/2015 9:36 EDT 2 Puffs albuterol inhaler 2 Puff 2 Puff, inhalation, EVERY 4 HOURS PRN, Starting on Tue07/18/15 at 2000, Until Tue07/25/15 at 1730, Wheezing, Routine Given 07/19/2015 23:11 EDT 2 Puffs ALPRAZolam (XANAX) tablet 1 mg 1 mg, oral, 3 TIMES DAILY PRN, Starting on Tue07/18/15 at 0114, Until Tue07/25/15 at 1730, Anxiety, Routine Given 07/25/2015 9:39 EDT 1 mg Given 07/25/2015 1:54 EDT 1 mg Given 07/24/2015 20:21 EDT 1 mg ciprofloxacin HCl (CIPRO) tablet 500 mg 500 mg, oral, 2 TIMES DAILY, 9 doses, First dose on Tue07/18/15 at 0130, Last dose on Tue07/21/15 at 2100, Controlled antibiotic: has ID approved? No: After 10pm, Before 8am, Routine Given 07/21/2015 21:04 E DT 500 mg Given 07/21/2015 8:00 EDT 500 mg Given 07/20/2015 20:13 EDT 500 mg cyanocobalamin tablet 1,000 mcg 1,000 mcg, oral, DAILY, First dose on Tue07/18/15 at 0900, Until Discontinued, Routine Given 07/25/2015 9:38 EDT 1,000 mcg Given 07/24/2015 8:44 EDT 1,000 mcg Given 07/23/2015 8:59 EDT 1,000 mcg electrolyte-R (NORMOSOL-R) solution BOLUS solution 1,000 mL 1,000 mL, intravenous, NOW X1, 1 dose, On Kirsten 07/17/15 at 2014 Given 07/17/2015 20:34 EDT 1,000 mL enoxaparin (LOVENOX) injection 40 mg 40 mg, subcutaneous, DAILY, First dose (after last modification) on Tue07/20/15 at 1500, Until Discontinued, Routine Given 07/25/2015 9:42 EDT 40 mg Given 07/24/2015 8:43 EDT 40 mg Given 07/23/2015 8:58 EDT 40 mg Abdom inal Tissue ferrous gluconate (FERGON) tablet 324 mg 324 mg, oral, 2 TIMES DAILY WITH BREAKFAST & DINNER, First dose on Tue07/18/15 at 0800, Until Discontinued, Routine Given 07/25/2015 9:39 EDT 324 mg Given 07/24/2015 16:03 EDT 324 mg Given 07/24/2015 8:44 EDT 324 mg fluticasone (FLOVENT) 110 mcg/actuation inhaler 1 Puff 1 Puff, inhalation, 2 TIMES DAILY, First dose on Tue07/18/15 at 0900, Until Discontinued, Routine Given 07/25/2015 9:38 EDT 1 Puff Given 07/24/2015 20:13 EDT 1 Puff Given 07/24/2015 8:44 EDT 1 Puff heparin injection 5,000 Units 5,000 Units, subcutaneous, EVERY 12 HOURS, First dose on Tue07/18/15 at 0900, Until Discontinued, Routine Given 07/20/2015 8:34 EDT 5,000 Units Given 07/19/2015 20:57 EDT 5,000 Units Given 07/19/2015 8:09 EDT 5,000 Units HYDROmorphone (DILAUDID) tablet 4 mg 4 mg, oral, NOW X1, 1 dose, On 07/19/15 at 1645, Routine Given 07/19/2015 16:43 EDT 4 mg HYDROmorphone (DILAUDID) tablet 6 mg 6 mg, oral, EVERY 4 HOURS PRN, Starting on Tue07/18/15 at 0853, Until 07/21/15 at 1115, Pain, Routine Given 07/21/2015 7:51 EDT 6 mg Given 07/21/2015 2:04 EDT 6 mg Given 07/20/2015 22:29 EDT 6 mg HYDROmorphone (DILAUDID) tablet 6 mg 6 mg, oral, EVERY 3 HOURS PRN, Starting on 07/21/15 at 1130, Until Kirsten 07/24/15 at 1745, Pain, Routine Given 07/24/2015 15:36 EDT 6 mg Given 07/24/2015 8:44 EDT 6 mg Given 07/24/2015 4:54 EDT 6 mg HYDROmorphone (DILAUDID) tablet 6 mg 6 mg, oral, EVERY 4 HOURS PRN, Starting on Tue07/24/15 at 1930, Until Tue07/25/15 at 1730, Pain, Routine Given 07/25/2015 9:39 EDT 6 mg Given 07/25/2015 5:23 EDT 6 mg Given 07/25/2015 0:36 EDT 6 mg HYDROmorphone (PF) (DILAUDID) 1 mg/mL injection 0.5 mg 0.5 mg, intravenous, NOW X1, 1 dose, On Tue07/17/15 at 1545, STAT Given 07/17/2015 15:54 EDT 0.5 mg HYDROmorphone (PF) (DILAUDID) 1 mg/mL injection 0.5 mg 0.5 mg, intravenous, NOW X1, 1 dose, On Tue07/17/15 at 1615, STAT Given 07/17/2015 16:08 EDT 0.5 mg HYDROmorphone (PF) (DILAUDID) 1 mg/mL injection 1 mg 1 mg, intravenous, NOW X1, 1 dose, On Tue07/17/15 at 1745, STAT Given 07/17/2015 17:40 EDT 1 mg HYDROmorphone (PF) (DILAUDID) 1 mg/mL injection 1 mg 1 mg, intravenous, NOW X1, 1 dose, On Tue07/17/15 at 2030, STAT Given 07/17/2015 20:34 EDT 1 mg HYDROmorphone (PF) (DILAUDID) 1 mg/mL injection 1 mg 1 mg, intravenous, NOW X1, 1 dose, On Tue07/17/15 at 2230, STAT Given 07/17/2015 22:17 EDT 1 mg HYDROmorphone (PF) (DILAUDID) 1 mg/mL injection 1 mg 1 mg, intravenous, EVERY 4 HOURS PRN, Starting on Tue07/18/15 at 0035, Until Tue07/18/15 at 0853, Pain, Routine Given 07/18/2015 6:10 EDT 1 mg Given 07/18/2015 1:15 EDT 1 mg HYDROmorphone (PF) (DILAUDID) 1 mg/mL injection 1 dose, Starting on Tue07/17/15 at 2213, Until Tue07/17/15 at 2217 ipratropium-albuterol (DUONEB) 0.5 mg-3 mg(2.5 mg base)/3 mL nebulizer solution 3 mL 3 mL, nebulization, Once (Without Time Specified), 1 dose, Starting on Tue07/17/15 at 1334, Until Tue07/17/15 at 1335, Routine Given 07/17/2015 13:35 EDT 3 mL ipratropium-albuterol (DUONEB) 0.5 mg-3 mg(2.5 mg base)/3 mL nebulizer solution 1 dose, Starting on Tue07/17/15 at 1323, Until Tue07/17/15 at 1335 lactated ringers BOLUS 1,000 mL 1,000 mL, intravenous, NOW X1, 1 dose, On Tue07/17/15 at 1445, STAT Given 07/17/2015 14:40 EDT 1,000 mL lactated ringers BOLUS 1,000 mL 1,000 mL, intravenous, NOW X1, 1 dose, On Tue07/24/15 at 1415, Routine Given 07/24/2015 15:26 EDT 1,000 mL lactulose (CHRONULAC) 20 gram/30 mL solution 45 mL 45 mL, oral, 2 TIMES DAILY, First dose (after last reorder) on Tue07/18/15 at 0900, Until Discontinued Given 07/18/2015 9:22 EDT 45 mL metroNIDAZOLE (FLAGYL) tablet 500 mg 500 mg, oral, EVERY 8 HOURS, 30 doses, First dose on Tue07/19/15 at 2115, Last dose on Tue07/29/15 at 1600, Routine Given 07/22/2015 16:12 EDT 500 mg Given 07/22/2015 9:32 EDT 500 mg Given 07/21/2015 23:27 EDT 500 mg Multivitamins with Minerals tablet 1 Tab 1 Tablet, oral, DAILY, First dose on Tue07/25/15 at 0900, Until Discontinued, Routine Given 07/25/2015 9:38 EDT 1 T ablet ondansetron (PF) (ZOFRAN) 4 mg/2 mL injection 1 dose, Starting on Tue07/17/15 at 2214, Until Tue07/17/15 at 2218 ondansetron (PF) (ZOFRAN) injection 4 mg 4 mg, intravenous, NOW X1, 1 dose, On Kirsten 07/17/15 at 1545, STAT Given 07/17/2015 15:54 EDT 4 mg ondansetron (PF) (ZOFRAN) injection 4 mg 4 mg, intravenous, NOW X1, 1 dose, On Kirsten 07/17/15 at 1715, STAT Given 07/17/2015 17:17 EDT 4 mg ondansetron (PF) (ZOFRAN) injection 4 mg 4 mg, intravenous, NOW X1, 1 dose, On Kirsten 07/17/15 at 2230, STAT Given 07/17/2015 22:18 EDT 4 mg ondansetron (PF) (ZOFRAN) injection 4 mg 4 mg, intravenous, EVERY 6 HOURS PRN, Starting on Tue07/18/15 at 0034, Until Tue07/18/15 at 1453, Nausea, Routine Given 07/18/2015 13:41 EDT 4 mg Given 07/18/2015 1:15 EDT 4 mg ondansetron (PF) (ZOFRAN) injection 4 mg 4 mg, intravenous, EVERY 4 HOURS PRN, Starting on Tue07/18/15 at 1710, Until Tue07/20/15 at 0948, Nausea, Routine Given 07/19/2015 17:15 EDT 4 mg Given 07/19/2015 11:35 EDT 4 mg Given 07/18/2015 17:16 EDT 4 mg ondansetron (ZOFRAN-ODT) disintegrating tablet 4 mg 4 mg, oral, EVERY 4 HOURS PRN, Starting on Tue07/18/15 at 1710, Until Tue07/20/15 at 0948, Nausea, Routine Given 07/19/2015 7:31 EDT 4 mg Given 07/19/2015 1:10 EDT 4 mg Given 07/18/2015 21:04 EDT 4 mg ondansetron (ZOFRAN-ODT) disintegrating tablet 4 mg 4 mg, oral, EVERY 6 HOURS PRN, Starting on Tue07/21/15 at 0830, Until Tue07/25/15 at 1730, Nausea, Routine Given 07/21/2015 9:27 EDT 4 mg ondansetron (ZOFRAN-ODT) disintegrating tablet 4-8 mg 4-8 mg, oral, EVERY 6 HOURS PRN, Starting on Tue07/20/15 at 0953, Until Tue07/21/15 at 0830, Nausea, Routine Given 07/20/2015 18:02 EDT 4 mg Given 07/20/2015 13:46 EDT 4 mg oxybutynin (DITROPAN) tablet 5 mg 5 mg, oral, 2 TIMES DAILY PRN, Starting on Tue07/18/15 at 0114, Until Tue07/25/15 at 1730, Pain, Routine Given 07/22/2015 19:08 EDT 5 mg pantoprazole (PROTONIX) tablet 40 mg 40 mg, oral, DAILY, First dose on Tue07/18/15 at 0900, Until Discontinued, Routine Given 07/25/2015 9:39 EDT 40 mg Given 07/24/2015 8:44 EDT 40 mg Given 07/23/2015 8:58 EDT 40 mg prochlorperazine (COMPAZINE) tablet 5 mg 5 mg, oral, EVERY 6 HOURS PRN, Starting on Tue07/21/15 at 0829, Until Tue07/25/15 at 1730, Nausea, Routine Given 07/21/2015 22:39 EDT 5 mg Given 07/21/2015 12:32 EDT 5 mg rifAXImin (XIFAXAN) tablet 550 mg 550 mg, oral, 2 TIMES DAILY, 28 doses, First dose on Tue07/18/15 at 0130, Last dose on Tue07/31/15 at 0900, Routine Given 07/23/2015 8:58 EDT 550 mg Given 07/22/2015 20:19 EDT 550 mg Given 07/22/2015 9:32 EDT 550 mg sodium chloride 0.9 % (NS) infusion at 100 mL/hr, intravenous, CONTINUOUS, Starting on Tue07/18/15 at 0345, Until Tue07/18/15 at 0749, Routine Rate Documented 07/18/2015 7:19 EDT 100 mL/hr New Bag 07/18/2015 4:27 EDT 100 mL/hr sodium chloride 0.9 % BOLUS 1,000 mL 1,000 mL, intravenous, NOW X1, 1 dose, On Kirsten 07/17/15 at 1600, STAT New Bag 07/17/2015 15:54 EDT 1,000 mL tamsulosin (FLOMAX) capsule 0.4 mg 0.4 mg, oral, AT BEDTIME, First dose on Tue07/18/15 at 0130, Until Discontinued, Routine Given 07/24/2015 20:14 EDT 0.4 mg Given 07/23/2015 20:38 EDT 0.4 mg Given 07/22/2015 20:19 EDT 0.4 mg vancomycin (VANCOCIN) capsule 125 mg 125 mg, oral, 4 TIMES DAILY, 40 doses, First dose on Tue07/22/15 at 1700, Last dose on Tue08/01/15 at 1200, Routine Given 07/25/2015 12:52 EDT 125 mg Given 07/25/2015 9:39 EDT 125 mg Given 07/24/2015 20:14 EDT 125 mg documented in this encounter Discontinued Medications Medication Sig Discontinue Reason Start Date End Da te oxyCODONE (ROXICODONE) 5 mg immediate release tablet Take 1 Tab by mouth every 6 hours as needed for Pain Daily Max: 20 mg 07/25/2015 07/25/2015 vancomycin (VANCOCIN) 125 mg capsule Take 1 Cap by mouth 4 times daily for 7 days 07/25/2015 07/25/2015 oxyCODONE (ROXICODONE) 5 mg immediate release tablet Take 1 Tab by mouth every 4 hours as needed for Pain Daily Max: 30 mg 07/15/2015 07/25/2015 documented as of this encounter Active and Recently Administered Medications Times are shown in EDT. Scheduled Medication Order 07/23/2015 07/24/2015 07/25/2015 cyanocobalamin tablet 1,000 mcg (CANCELED) 1,000 mcg, oral, DAILY, First dose on Tue07/18/15 at 0900, Until Discontinued, Routine 0859 (Given - Provider: Puja Diaz RN) 0844 (Given - Provider: Simona Brady, KENN) 0938 (Given - Provider: Simona Brady RN) enoxaparin (LOVENOX) injection 40 mg (CANCELED) 40 mg, subcutaneous, DAILY, First dose (after last modification) on Tue07/20/15 at 1500, Until Discontinued, Routine 0858 (Given - Provider: Puja Diaz RN) 0843 (Given - Provider: Simona Brady RN) 0942 (Given - Provider: Simona Brady RN) ferrous gluconate (FERGON) tablet 324 mg (CANCELED) 324 mg, oral, 2 TIMES DAILY WITH BREAKFAST & DINNER, First dose on Tue07/18/15 at 0800, Until Discontinued, Routine 0859 (Given - Provider: Puja Diaz RN)1655 (Given - Provider: Gerson Dumont RN) 0844 (Given - Provider: Simona Brady RN)1603 (Given - Provider: Simona Brady RN) 0939 (Given - Provider: Simona Brady RN) fluticasone (FLOVENT) 110 mcg/actuation inhaler 1 Puff (CANCELED) 1 Puff, inhalation, 2 TIMES DAILY, First dose on Tue07/18/15 at 0900, Until Discontinued, Routine 0859 (Given - Provider: Puja Diaz RN)2037 (Given - Provider: Gerson Dumont RN) 0844 (Given - Provider: Simona Brady RN)2012 (Given - Provider: Radha Carlton RN) 0938 (Given - Provider: Simona Brady RN) lactated ringers BOLUS 1,000 mL (COMPLETED) 1,000 mL, intravenous, NOW X1, 1 dose, On Tue07/24/15 at 1415, Routine 1526 (Given - Provider: Simona Brady RN) Multivitamins with Minerals tablet 1 Tab (CANCELED) 1 Tablet, oral, DAILY, First dose on Tue07/25/15 at 0900, Until Discontinued, Routine 0938 (Given - Provider: Simona Brady RN) pantoprazole (PROTONIX) tablet 40 mg (CANCELED) 40 mg, oral, DAILY, First dose on Tue07/18/15 at 0900, Until Discontinued, Routine 0858 (Given - Provider: Puja Diaz RN) 0844 (Given - Provider: Simona Brady RN) 0939 (Given - Provider: Simona Brady RN) rifAXImin (XIFAXAN) tablet 550 mg (CANCELED) 550 mg, oral, 2 TIMES DAILY, 28 doses, First dose on Tue07/18/15 at 0130, Last dose on Tue07/31/15 at 0900, Routine 0858 (Given - Provider: Puja Diaz RN) tamsulosin (FLOMAX) capsule 0.4 mg (CANCELED) 0.4 mg, oral, AT BEDTIME, First dose on Tue07/18/15 at 0130, Until Discontinued, Routine 2037 (Given - Provider: Gerson Dumont RN) 2013 (Given - Provider: Radha Carlton RN) vancomycin (VANCOCIN) capsule 125 mg 125 mg, oral, 4 TIMES DAILY, 40 doses, First dose on Tue07/22/15 at 1700, Last dose on Tue08/01/15 at 1200, Routine 0859 (Given - Provider: Puja Diaz RN)1203 (Given - Provider: Puja Diaz RN)1655 (Given - Provider: Gerson Dumont RN)2038 (Given - Provider: Gerson Dumont RN) 0844 (Given - Provider: Simona Brady RN)1130 (Given - Provider: Simona Brady RN)1603 (Given - Provider: Simona Brady RN)2013 (Given - Provider: Radha Carlton RN) 0939 (Given - Provider: Simona Brady RN)1252 (Given - Provider: Simona Brady RN) PRN Medication Order 07/23/2015 07/24/2015 07/25/2015 ALPRAZolam (XANAX) tablet 1 mg (CANCELED) 1 mg, oral, 3 TIMES DAILY PRN, Starting on Tue07/18/15 at 0114, Until Tue07/25/15 at 1730, Anxiety, Routine 0908 (Given - Provider: Puja Diaz RN)1508 (Given - Provider: Puja Diaz, KENN)2053 (Given - Provider: Gerson Dumont RN) 0135 (Given - Provider: Radha Carlton RN)0900 (Given - Provider: Simona Brady RN)202 (Given - Provider: Radha Carlton RN) 0154 (Given - Provider: Radha Carlton RN)0939 (Given - Provider: Simona Brady RN) HYDROmorphone (DILAUDID) tablet 6 mg (CANCELED) 6 mg, oral, EVERY 3 HOURS PRN, Starting on 07/21/15 at 1130, Until Kirsten 07/24/15 at 1745, Pain, Routine 0321 (Given - Provider: Karol Retana)0858 (Given - Provider: Puja Diaz RN)1203 (Given - Provider: Puja Diaz, KENN)1508 (Given - Provider: Puja Diaz RN)2052 (Given - Provider: Gerson Dumont RN) 0135 (Given - Provider: Radha Carlton RN)0454 (Given - Provider: Radha Carlton RN)0844 (Given - Provider: Simona Brady, KENN)1536 (Given - Provider: Simona Brady RN) HYDROmorphone (DILAUDID) tablet 6 mg (CANCELED) 6 mg, oral, EVERY 4 HOURS PRN, Starting on Kirsten 07/24/15 at 1930, Until Tue07/25/15 at 1730, Pain, Routine 2014 (Given - Provider: Radha Carlton RN) 0036 (Given - Provider: Radha Carlton, KENN)0523 (Given - Provider: Radha Carlton RN)0939 (Given - Provider: Simona Brady, KENN) documented in this encounter Orders Medications Ordered That Luc ht Not Have Been Administered Count Last Ordered Date First Ordered Date lactated ringers BOLUS 1,000 mL 1 5 ondansetron (PF) (ZOFRAN) injection 4 mg 2 07/21/2015 07/18/2015 enoxaparin (LOVENOX) injection 40 mg 2 06/2307/18/2015 heparin injection 5,000 Units 1 07/20/2015 ondansetron (PF) (ZOFRAN) injection 4-8 mg 2 07/20/2015 ondansetron (ZOFRAN-ODT) dis integrating tablet 4-8 mg 1 07/20/2015 albuterol inhaler 2 Puff 1 07/18/2015 lactulose (CHRONULAC) 10 gra /15 mL solution 45 mL 1 07/18/2015 ondansetron (ZOFRAN-ODT) dis integrating tablet 4 mg 1 07/18/2015 Diet Count Last Ordered Date First Orde red Date DISCHARGE DIET 1 07/25/2015 Nursing Count Last Ordered Date First Orde red Date ACTIVITY INSTRUCTIONS 1 07/25/2015 BATHING INSTRUCTIONS 1 07/25/2015 INSERT CARL CATHETER 1 07/18/2015 Respiratory Care Count Last Ordered Date First Ordered Date INCENTIVE SPIROMETRY RT 1 07/18/2015 IV Count Last Ordered Date First Orde red Date IV REQUEST 1 07/24/2015 Admission Count Last Ordered Date First Orde red Date STATUS: INPATIENT ACUTE ADMISSION 1 015 STATUS: OUTPATIENT OBSERVATION SERVICES 1 0 07/18/2015 ED BED REQUEST 1 07/17/2015 Transfer Count Last Ordered Date First Orde red Date NOTIFY PPS OF DISCHARGE COMPLETE 1 07/25/20 15 CHANGE ATTENDING TO: 2 07/21/2015 015 PPS NOTIFICATION OF PATIENT ARRIVAL ON UNIT 1 07/18/2015 UR PATIENT STATUS CHANGE 2 07/18/2015 Discharge Count Last Ordered Date First Orde red Date DISCHARGE PATIENT 1 07/25/2015 Legal Count Last Ordered Date First Orde red Date MISCELLANEOUS DISCHARGE INSTRUCTIONS 1 02/2015 documented in this encounter Additional Health Concerns Infection Onset Date Last Indicated Resolved Time C. difficile * 07/21/2015 07/21/2015 07/25/2015 15 :25 EDT documented as of this encounter Care Teams Graduate Intern Relationship Specialty Start Date End Date Emigdio Centeno MD [address] [place] [address] PCP - General 09/14/14 07/30/15 documented as of this encounter
--- OUTSIDE RECORDS SUMMARY | 2024-11-22 17:31 | XMS_ITS | Encounter Summary ---
Author Organization [facility] Address [address] [place] [address] Care Team Providers Care Electromedical Equipment Technician Name Role Phone Emigdio Centeno MD Primary Care Provider Reason for Visit * Reason Comments Neck Mass Encounter Details Date Type Department Care Team (Late st Contact Info) Description 06/18/2015 10:45 EDT Office Visit [facility] ENT[facility] [address], [place] [id number] Cadence Liz MD [address] [facility], [address] [place] [phone] Mass of left side of neck (Primary Dx) Social History Tobacco Use Types [...] on file documented as of this encounter Progress Notes * Soni Leyva MD - 06/18/2015 1215 EDT Progress Note Division of Otolaryngology, Head and Neck Surgery Date of Service: 06/18/2015 Provider: Cadence Liz MD Resident Physician: Soni Leyva MD Subjective: Patient ID: Tara Yun is an 54 y.o. female. Chief Complaint Patient presents with ??? Neck Mass HPI Tara Yun is a 54 y.o. woman who presents with a left sided neck mass. She first noticed thisa week and a half ago and it has been enlarging and becoming more painful. Now the pain is radiating to her left ear. She has not had any recent illness, although she lives with her grandchildren whoare often sick. She went to the ED last night and CT scan showed a rim enhancing, partially cystic, partially solid level II neck mass. She was discharged with a prescription for clindamycin and follow-up in ENT clinic today. In the ED, she did not have an elevated WBC, but her platelets were low at 63, and she has known thrombocytopenia. 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 She denies fever, chills, but may have some night sweats (difficult to tell since the weather has been so hot). She denies dysphagia, voice change or difficulty breathing. She is a smoker 1/3 to 1/2 ppd for 20 years, never drinker. She is s/p tonsillectomy as a child. There is no problem list on file for this patient. Past Medical History Diagnosis Date ??? Cirrhosis of liver ??? Asthma ??? Bleeding disorder ??? Heartburn ??? Rheumatoid arthritis Past Surgical History Procedure Laterality Date ??? Hernia repair ??? Appendectomy ??? Tonsillectomy ??? Cholecystectomy ??? Hysterectomy ??? Knee surgery No family history on file. Social History Social History ??? Marital Status: Single Spouse Name: N/A Number of Children: N/A ??? Years of Education: N/A Occupational History ??? Not on file. Social History Main Topics ??? Smoking status: Current Every Day Smoker -- 0.50 packs/day for 20 years ??? Smokeless tobacco: Never Used ??? Alcohol Use: No ??? Drug Use: No ??? Sexual Activity: Not on file Other Topics Concern ??? Not on file Social History Narrative No outpatient prescriptions have been marked as taking for the 06/18/15 encounter (Office Visit) with Cadence Liz MD. Allergies Allergen Reactions ??? Morphine Anaphylaxis ??? Tylenol [Acetaminophen] Other (See Comments) Contraindication with medical hx ??? Toradol [Ketorolac] Shortness Of Breath ??? Aspirin Other (See Comments) Contraindication with medical hx ??? Reglan [Metoclopramide Hcl] Rash ??? Sulfa (Sulfonamide Antibiotics) Rash ROS - See HPI Objective: There were no vitals taken for this visit. Physical Exam Department of Otolaryngology PHYSICAL EXAMINATION CONSTITUTIONAL: VITAL SIGNS: Reviewed (3) There were no vitals taken for this visit. APPEARANCE: The patient appears alert, cooperative, and comfortable. ABILITY TO COMMUNICATE / VOICE: Normal HEAD AND FACE: INSPECTION: Normal without apparent scars, lesions, or masses. PALPATION: There are no masses or sinus tenderness. SALIVARY GLANDS: Submandibular and Parotid glands are normal bilaterally FACIAL STRENGTH: Intact and symmetrical bilaterally EXTERNAL EAR & NOSE: No external ear or nose deformity noted EYES: EYES: normal EARS, NOSE, MOUTH AND THROAT: OTOSCOPY: Right external auditory canal: patent and non-inflamed Left external auditory canal: patent and non-inflamed Right tympanic membrane: intact without retraction, perforation or effusion Left tympanic membrane: intact without retraction, perforation or effusion WHISPER/TUNING FORK: Hearing subjectively normal NOSE: normal turbinates and mucosa: septum in midline . There is some white powder residue in the left nasal cavity LIPS, TEETH & GUMS: partially edentulous, with poor dentition, but no obvious dental infection ORAL CAVITY & OROPHARYNX: normal, pink mucosa, no lesions or masses. Tonsils surgically absent HYPOPHARYNX & PHARYNGEAL MADDEN: See flexible exam report LARYNX: See flexible exam report NASOPHARYNX: See flexible exam report NECK: GENERAL: Supple, no crepitus, trachea midline, Large (approx 2.5 cm) firm, mobile level II mass on the left with no overlying skin changes THYROID: Normal LYMPHATIC: CERVICAL LYMPH NODES: level II neck mass as above, no other palpable lymphadenopathy RESPIRATORY: LUNGS: Not examined CARDIOVASCULAR: CARDIOVASCULAR: Not examined NEUROLOGIC: NEUROLOGIC: Normal mood and affect CT scan of the neck with contrast from 06/17/15 reviewed: This shows a partially cystic, partially solid, round, rim enhancing 2.4 cm level II neck mass. It is adjacent to, but no obviously located within the deep lobe of the parotid. Endoscopy Procedure Note Pre-procedure Diagnosis: left neck mass Post-procedure Diagnosis: normal Indications: Evaluation of the larynx and immediate subglottis - unable to be visualized by mirror examination Anesthesia: Cophenylcaine Endoscopy Type: Laryngoscopy using a flexible laryngoscope Procedure Details: With the patient sitting upright in the examining chair informed consent was obtained. The left nostril was topically anesthetized with spray. After waiting an appropriate period of time for anesthesia/ vasoconstriction to become effective (if this was applicable), the scope was passed into the left nostril and the nasopharynx, oropharynx, hypopharynx and larynx were examined. Condition: Patient tolerated procedure well and left the office in a stable condition. Complications: None Findings: Nasopharynx: Normal exam of choanae, eustachian tubes, and adenoids for age Oropharynx: Normal exam of tongue base, tonsils, and posterior pharynx Hypopharynx: Normal piriform sinuses noted, no pooling of secretions Supraglottis: Normal Posterior Commissure: Normal Right True Vocal Fold: Normal Left True Vocal Fold: Normal Vocal Fold Mobility: Vocal cords lengthen normally Please see separate procedure note for details regarding ultrasound guided FNA which was performed with Dr. Jesus Vaughan. Assessment: Tara Yun is a 54 y.o. woman with a new left sided, partially cystic/solid, Level II neck mass. This mass is painful and has been enlarging. Differential diagnosis includes infected branchial cleft cyst, malignant vs benign parotid mass or lymph node. FNA was performed today and fluid obtained was sent for cytology in addition to culture. Plan: Will follow-up with results of pathology and culture. Patient knows to call the office if she has not been contacted within 1 week. Follow-up will be arranged pending results. Soni Leyva MD Otolaryngology PGY-4 06/18/2015, 13:03 #[id number] Attending statement: I have personally interviewed, examined and discussed Tara Yun with Dr. Soni Leyva during today's visit. I have reviewed and edited her notes and concur. I was available for immediate supervision during flexible endoscopy Cadence Liz MD documented in this encounter Plan of Treatment Upcoming Encounters Date Type Department Care Team (Late st Contact Info) Description 01/04/2025 13:00 EST Office Visit [facility] Ophthalmology - [address] [id number] Gagandeep Rome MD [address] [place] [address], [facility] [address] [place] [phone] 02/11/2025 13:30 EDT Telemedicine [facility] Hematology & Oncology - [address] [phone] Dana Padilla MD [address] [place] [address], [facility] [address] [place] [phone] Scheduled Orders Name Type Priority Associated Diagnoses Orde r Schedule CYTOLOGY (NON-GYNECOLOGIC INCLUDING FLUIDS AND FINE NEEDLE ASPIRATION)- ORDER ONLY Pathology Routine Mass of left side of neck Ordered: 06/18/2015 documented as of this encounter Visit Diagnoses Diagnosis Mass of left side of neck- Primary Swelling, mass, or lump in head and neck documented in this encounter Care Teams Electromedical Equipment Technician Relationship Specialty Start Date End Date Emigdio Centeno MD [address] [place] [id number] PCP - General 09/14/14 07/30/15 documented as of this encounter
--- OUTSIDE RECORDS SUMMARY | 2024-11-22 17:31 | XMS_ITS | Encounter Summary ---
Author Organization [facility] Address [address] [place] [address] Care Team Providers Care Radio Intelligence Operator Name Role Phone Emigdio Centeno MD Primary Care Provider [phone] Reason for Visit * Reason Comments Tremors Had needle aspiratio n of neck mass this am. Was discharged when she started to have tremors, anxiety and nausea. Arrives to ED as a MET call. FSBS 47 mg/dL Fever 101 F Encounter Details Date Type Department Care Team (Late st Contact Info) Description 06/18/2015 12:44 EDT - 06/18/2015 14:[address] [facility] Emergency Department - [address] [address] Zeian Elliott MD [address] [place] [address], Level [address] [place] [address] Emergency, MD Rolando Hypoglycemia (Primary Dx) Discharge Disposition: Home or Self [...] Sign Reading Time Taken Comments Blood Pressure 126/65 06/18/2015 1300 EDT Pulse 98 06/18/2015 1253 EDT Temperature 38.3 ??C (101 ??F) 06/18/2015 1253 EDT Respiratory Rate 19 06/18/2015 1345 EDT Oxygen Saturation 96% 06/18/2015 1345 EDT Inhaled Oxygen Concentration - - Weight - - Height - - Body Mass Index - - documented in this encounter Discharge Instructions * Discharge Instructions* Zeina Elliott MD - 06/18/2015 14:05 EDT Please eat several small meals per day in order to maintain a normal blood sugar level Follow-up with your primary care physician Return to the emergency department if your symptoms worsen or you develop new symptoms that concernyou * Attachments The following attachments cannot be sent through Care Everywhere. * HYPOGLYCEMIA (SAMI) documented in this encounter Medications at Time of Discharge albuterol 90 mcg/actuation inhaler Inhale 2 Puffs as directed every 4 hours as needed. 09/18/2021 ALPRAZolam (XANAX) 1 mg tablet Take 1 mg by mouth 3 times daily. 09/30/2017 clindamycin (CLEOCIN) 300 mg capsule Take 1 Cap by mouth 3 times daily for 10 days 30 Cap 0 06/17/2015 06/27/2015 cyanocobalamin 500 mcg tablet Take 1,000 mcg by mouth daily. 07/29/2015 ferrous gluconate (FERGON) 324 mg (38 mg iron) tablet Take 324 mg by mouth daily with breakfast. 04/23/2021 fluticasone (FLOVENT) 110 mcg/actuation inhaler Inhale 110 mcg as directed 2 times daily. 11/26/2019 LACTULOSE ORAL Take by mouth. 2014 LEVOTHYROXINE SODIUM (LEVOTHYROXINE ORAL) Take 25 mcg by mouth daily. Unknown dose 11/03/2020 ondansetron (ZOFRAN, HYDROCHLORIDE,) 4 mg tablet Take 2 Tabs by mouth every 8 hours as needed for Nausea 15 Tab 0 06/17/2015 12/17/2015 oxyCODONE (ROXICODONE) 5 mg immediate release tablet Take 1 Tab by mouth every 4 hours as needed for Pain Daily Max: 30 mg 15 Tab 0 06/17/2015 06/24/2015 pantoprazole (PROTONIX) 40 mg tablet Take 40 mg by mouth daily. 01/03/2019 UNABLE TO FIND Xyfexen_ a liver antibioltic 07/29/2015 documented as of this encounter Discharge Disposition Disposition Code Departure Means Destination Home or Self Care Walk-out Home documented in this encounter ED Notes * Segundo Salazar, RN - 06/18/2015 1403 EDT Patient requests to leave [facility]. Report to Dr Elliott. * Zeina Elliott MD - 06/18/2015 1331 EDT DOS: 06/18/2015 Chief Complaint Patient presents with ??? Tremors Had needle aspiration of neck mass this am. Was discharged when she started to have tremors, anxiety and nausea. Arrives to ED as a MET call. FSBS 47 mg/dL ??? Fever 101 F HPI HPI Comments: ICruz, am scribing for Zeina Elliott MD while he/she is personally performing the service. Cruz Chris 06/18/2015 13:32 Tara Boothe is a 54 y.o female with a PMH significant for cirrhosis, and a platelet abnormality. The patient was seen in this ED last night, and evalauted for a cyst on her neck. This morning thepatient had a needle aspiration of her neck mass performed in the ENT clinic. Upon completion of the procedure, the patient left and began to feel chilled. She went outside, perceiving that the air conditioning was causing her chills, but her chills worsened and she became tremulous. The patient presents to the ED with a blood sugar of 47, with a chief complaint of fatigue, endorsing associated SOB/difficulty breathing, neck pain, fever, and increased thirst. She notes being extremely anxious this morning/today regarding her procedure. Patient denies CP. Patient notes that she did not eat this morning, which is not unusual for her. Patient was started on abx this morning. The history is provided by the patient and medical records. Review of Systems Review of Systems Constitutional: Positive for fever. Respiratory: Positive for shortness of breath and wheezing. Difficulty breathing Cardiovascular: Negative for chest pain. Gastrointestinal: Positive for nausea. Increased thirst. Musculoskeletal: Positive for neck pain. Neurological: Positive for tremors. Psychiatric/Behavioral: Positive for agitation. The patient is nervous/anxious. Allergies Allergen Reactions ??? Morphine Anaphylaxis ??? Tylenol [Acetaminophen] Other (See Comments) Contraindication with medical hx ??? Toradol [Ketorolac] Shortness Of Breath ??? Aspirin Other (See Comments) Contraindication with medical hx ??? Reglan [Metoclopramide Hcl] Rash ??? Sulfa (Sulfonamide Antibiotics) Rash Vital Signs Temp: 38.3 ??C (101 ??F) Temp src: Temporal Pulse: 98 Heart Rate: 101 BPM Resp: 19 SpO2: 96 % BP: 126/65 mmHg Physical Exam Constitutional: She is oriented to person, place, and time. She appears well- developed and well-nourished. No distress. HENT: Head: Normocephalic and atraumatic. Right Ear: External ear normal. Left Ear: External ear normal. Nose: Nose normal. Mouth/Throat: Oropharynx is clear and moist. No oropharyngeal exudate. Eyes: Conjunctivae and EOM are normal. Pupils are equal, round, and reactive to light. Right eye exhibits no discharge. Left eye exhibits no discharge. No scleral icterus. Neck: Normal range of motion. Neck supple. No JVD present. No tracheal deviation present. Band aid covering left jaw. Cardiovascular: Normal rate, regular rhythm, normal heart sounds and intact distal pulses. No murmur heard. Mild tachycardia Pulmonary/Chest: Effort normal. No respiratory distress. She has wheezes. Abdominal: Soft. Bowel sounds are normal. She exhibits no distension. There is no tenderness. Musculoskeletal: Normal range of motion. She exhibits no edema. Neurological: She is alert and oriented to person, place, and time. She has normal strength. No sensory deficit. Skin: Skin is warm and dry. No rash noted. Psychiatric: She has a normal mood and affect. Nursing note and vitals reviewed. RESULTS EKG orders: None Radiology orders: None ED Lab Results Labs Reviewed GLUCOSE, GLUCOMETER - Abnormal Glucose, Fingerstick 47 (*) Final Fiberg[employer] Tube Molder ID [id number] Final BACTERIAL CULTURE/SMEAR, OTHER POCT GLUCOSE CYTOPATHOLOGY Procedures ED COURSE A medical screening exam was performed. 54 y/o female presents with a one hour history of nausea, chills, and tremors s/p a neck biopsy this morning. Patient reports being anxious. Upon arrival, blood glucose was 47. Physical exam as is above, and significant for wheezes and mild tachycardia, but was otherwise unremarkable. The patient was able to tolerate food/water PO. I wanted to check the patients LFTs, however the patient insisted that she was fine and would like to go home. Labs from yesterday reviewed, and are overall normal. It is my impression that the patient was hypoglycemic due topoor PO intake today and that is what caused her symptoms. She had a small meal in ED and feels improved, declines further workup. ASSESSMENT AND PLAN Patient discharged to home in good condition with follow up as needed with her PCP. Final diagnoses: Hypoglycemia DISPOSITION: Discharged The patient's pain was managed to an adequate level weighing risk vs. benefit of further medications. Upon departure from the Emergency Department, the patient's pain was 0 on a zero to ten scale. Condition at departure from the Emergency Department: Good This documentation is recorded by Cruz Chris II acting as Scribe under the direction and presence of Zeina Elliott MD. Zeina Elliott MD: I personally performed the services recorded by the scribe in my presence. I confirm the scribe's documentation has been reviewed by me to accurately and completely record my work, treatment, procedures, and medical decision making. PCP: Emigdio Centeno MD (General) [facility] 06/18/2015 14:05 No flowsheet data found. * Kelton Rider, RN - 06/18/2015 1301 EDT Nauseous. VO for oral zofran obtained from Dr Elliott * Kelton Rider RN - 06/18/2015 1252 EDT Juice given Pt is now on continuous EKG,pulse oximetry and NIBP monitoring. Alarms are on, and alarm parameters were adjusted according to initial set of VS. documented in this encounter Plan of Treatment Upcoming Encounters Date Type Department Care Team (Late st Contact Info) Description 01/04/2025 13:[address] [facility] Ophthalmology [address] [id number] Gagandeep Rome MD [address] [place] [address], [facility] [address] [place] [id number] 02/11/2025 13:30 EDT Telemedicine [facility] Hematology & Oncology [address] [phone] Dana Padilla MD [address] [place] [address], [facility] [address] [place] [address] documented as of this encounter Procedures Procedure Name Priority Date/Time Associated Diagnosis Comments GLUCOSE, GLUCOMETER Routine 06/18/2015 1 2:49 EDT BACTERIAL CULTURE/SMEAR Routine 06/18/2015 12:03 EDT CYTOPATHOLOGY Routine 06/18/2015 0:00 EDT documented in this encounter Results * (ABNORMAL) GLUCOSE, GLUCOMETER (06/18/2015 12:49 EDT) Glucose, Fingerstick 47(LL) 70 - 100 mg/dl 06/18/2015 12:54 EDT [facility] Fiberg[employer] Tube Molder ID [id number] 06/18/2015 12:54 EDT [facility] Comment:Test Performed by [facility] BLOOD SPECIMEN / Unknown 06/18/2015 12:49 EDT 06/18/2015 12:54 EDT us Provider Unknown CHEMISTRY & BLOOD GAS ORDERA BLES Final Result Performing Organization Address City/[facility]/ZIP Co de Phone Number [facility] [address] [place] [address] * BACTERIAL CULTURE/SMEAR, OTHER (06/18/2015 12:03 EDT) Gram Smear Result Few Polys 06/18/2015 15:21 EDT [facility] Gram Smear Result No bacteria seen 06/18/2015 15:21 EDT [facility] Result No growth 06/20/2015 7:16 EDT [facility] SOLID, ENTIRELY ENCAPSULATED TUMOR / Unknown 06/18/2015 12:03 EDT 06/18/2015 13:21 EDT Comment:cystic left neck daniel ded fna~Specimen submitted on a swab us Modesta Liz MD MICROBIOLOGY - GENERAL ORDE RABLES Final Result Performing Organization Address [facility] Co de Phone Number [facility] [address] [place] [address] * CYTOPATHOLOGY (06/18/2015 0:00 EDT) Pathology Report: CYTOPATHOLOGY REPORT Reports generated via electronic interface contain original data; however they are lacking the format of the original report. Caution should be taken when reading/interpret ing unformatted reports. Name: ? TARA BOOTHE E ? Accession #: ? [id number] : ? 1960 (Age: 54) ??F ?Collect Date: ? 06/18/2015 Location: ? SENT ? Receive Date: ? 06/18/2015 Provider: ? SERENE VAUGHAN MD Copy to: ?MODESTA LIZ MD ? CYTOLOGIC DIAGNOSIS: NECK, LEFT, LEVEL II MASS, FINE NEEDLE ASPIRATION: - ??Atypical squamous cells in a background of acute and chronic inflammation and cystic debris. See comment. ? COMMENT: The specimen is composed of nucleated and anucleated squamous cells with focal atypia in a background of mixed inflammatory cells and cystic debris. These findings may represent a branchial cleft cyst or an epidermal inclusion cyst in the appropriate clinical setting, however, given the age of the patient and the history of smoking, a well differentiated squamous cell carcinoma cannot be excluded.. If clinically suspicious, additional tissue studies are recommended for further characterization. This case has been reviewed at the intradepartmental consultation conference. Dr. Cox 06/19/2015 10:16 AM Document reviewed and electronically signed by: ? ROBSON DELONG MD Report Date: ??06/19/2015 16:55 By the signature above, the attending physician certifies that he/she has personally conducted a gross and/or microscopic examination of the described specimens and rendered or confirmed the above diagnosis. Specimen Type: ? Head/Neck, Fine Needle Aspiration, Left level I neck mass Clinical History: ? Left level II neck mass, painful, enlarging clinical diagnosis code: ??784.2, R22.1 ? Gross Description: ? 3 fixed prepared slides, 2 air dried prepared slides, and 1 tube of Cytolyt were received and processed by selective cellular enhancement technique. ? End of Report [facility] 06/18/2015 06/18/2015 13: 40 EDT us Serene Vaughan MD PATHOLOGY ORDERABLES Fi nal Result [facility] [address] [place] [address] documented in this encounter Visit Diagnoses Diagnosis Hypoglycemia- Primary Hypoglycemia, unspecified documented in this encounter Administered Medications Inactive Administered Medications - up to 3 most recent administrations Medication Order MAR Action Action Date Dose Rate Site ondansetron (ZOFRAN-ODT) 4 mg disintegrating tablet 1 dose, Starting on Tue06/18/15 at 1304, Until Tue06/18/15 at 1301 ondansetron (ZOFRAN-ODT) disintegrating tablet 4 mg 4 mg, oral, NOW X1, 1 dose, On Tue06/18/15 at 1315, STAT Given 06/18/2015 13:01 EDT 4 mg documented in this encounter Active and Recently Administered Medications Times are shown in EDT. Scheduled Medication Order 06/16/2015 06/17/2015 06/18/2015 ondansetron (ZOFRAN-ODT) disintegrating tablet 4 mg (COMPLETED) 4 mg, oral, NOW X1, 1 dose, On Tue06/18/15 at 1315, STAT 1301 (Given - Provid er: Dennis Mccord) documented in this encounter Care Teams Radio Intelligence Operator Relationship Specialty Start Date End Date Emigdio Centeno MD [address] [place] [id number] PCP - General 09/14/14 07/30/15 documented as of this encounter
--- OUTSIDE RECORDS SUMMARY | 2024-11-22 17:31 | XMS_ITS | Encounter Summary ---
Author Organization [facility] Address [address] [place] [address] Care Team Providers Care Net Development Manager Name Role Phone Emigdio Centeno MD Primary Care Provider [phone] Reason for Visit * Reason Comments Flank Pain Pt arrives via EMS w ith 910 L flank pain that started 2hrs ago. Hx kidney stones. Noticed blood in urine today. N/V and chills last 2 days as well. Mod distress. Encounter Details Date Type Department Care Team (Late st Contact Info) Description 07/12/2015 9:33 EDT - 07/13/2015 9:24 EDT Emergency [facility] [address] [place] [address] Heike Plummer PA-C [address] [phone] Araceli Fountain PA-C [address] [place] [id number] Sal Hubbard MD [address] [phone] Jordan Dickens MD [address] [place] [address], [address] [place] [id number] Kidney stone (Primary Dx) Discharge Disposition: Home or [...] Sign Reading Time Taken Comments Blood Pressure 114/59 07/13/2015 0512 EDT Pulse 66 07/12/2015 2108 EDT Temperature 36.3 ??C (97.3 ??F) 07/13/2015 0512 EDT Respiratory Rate 18 07/13/2015 0512 EDT Oxygen Saturation 98% 07/13/2015 0512 EDT Inhaled Oxygen Concentration - - Weight 93 kg (205 lb) 07/12/2015 1116 EDT Height 165.1 cm (5' 5) 07/12/2015 1500 EDT Body Mass Index 34.11 07/12/2015 1116 EDT documented in this encounter Functional Status * Are you deaf or do you have serious difficulty hearing? Answer Date of Assessment Author No 07/12/2015 15:00 EDT Duyen Nichole RN * Are you blind or do you have serious difficulty seeing, even when wearing glasses? Answer Date of Assessment Author No 07/12/2015 15:00 DAVIDT Duyen Nichole RN * Do you have serious difficulty walking or climbing stairs? (5 years old or older) Answer Date of Assessment Author No 07/12/2015 15:00 EDDuyen Fernandez RN * Do you have difficulty dressing or bathing? (5 years old or older) Answer Date of Assessment Author No 07/12/2015 15:00 Duyen Patrick RN * Because of a physical, mental, or emotional condition, do you have difficulty doing errands alone such as visiting a doctor's office or shopping? (15 years old or older) Answer Date of Assessment Author No 07/12/2015 15:00 EDT Duyen Nichole RN documented as of this encounter Mental Status * Because of a physical, mental, or emotional condition, do you have serious difficulty concentrating, remembering, or making decisions? (5 years old or older) Answer Entry Date Author No 07/12/2015 15:00 EDT Duyen Nichole RN documented in this encounter Discharge Summaries * Jordan Dickens MD - 07/13/2015 1222 EDT Discharge Summary Chief Complaint/Reason for Admission: Left flank pain Principal/Final Diagnosis: Distal obstructing left ureteral stone Principal Procedure: Cystoscopy, left retrograde pyelogram, left ureteral stent placement Secondary Procedure: NA Condition at Discharge: Good Assessment at Discharge: Vital signs: Patient Vitals for the past 12 hrs: BP Resp Temp SpO2 O2 Flow Rate (L/min) O2 Device 07/13/15 0512 114/59 mmHg 18 36.3 ??C (97.3 ??F) 98 % 2 l/min Nasal cannula Hospital Course: 54yo woman presented with left flank pain and fever to 101.2. Found to be leukopenic at 2.75 and with decreasing SBP 130's to 100's. Taken to OR for urgent decompression of left side. Due to concern for infection and depressed immune response patient was observed overnight. She had no fevers, was he modynamically stable, and pain was well controlled. She was discharged POD#1 to home. She will return in 2-14 days for ureteroscopy Relevant Studies at Discharge: CT Renal Colic, Impression: 1. 6 mm stone in the distal left ureter resulting in a mild degree of hydroureteronephrosis. Correlation with urinalysis is recommended to exclude superimposed infection. 2. Cirrhosis with portal hypertension and splenomegaly. 3. Status post cholecystectomy. Last Lab Results at Discharge: Recent Labs 07/12/15 0407 07/13/15 0353 WBC 2.75* 2.66* HGB 11.8 11.3* HCT 35.8 33.9* PLT 57* 59* Recent Labs 07/12/15 0407 07/13/15 0353 NA 138 137 K 3.9 4.1 CL 101 101 CO2 29 26 BUN 12 9* CREATININE -- 0.75 Discharge Summary Completed: jw I personally saw and examined the patient with the resident and reviewed the resident's interpretation and agree with the findings documented. documented in this encounter Discharge Instructions * Discharge Instructions* Jossue Alatorre MD - 07/13/2015 8:27 EDT Diet: Resume preoperative diet Activity: Activity as tolerated It is normal to have pain associated with the ureteral stent. This pain may be worse with activity or movement. Driving: No driving while taking narcotic pain medication Skin/Wound Care: Resume normal skin care. Bathing: No restrictions Pending Results: NA Symptoms to Call Your Doctor About: Burning with urination Chest pain Increased blood in urine Pain unrelieved by medication Shortness of breath Temperature greater than 101 degrees F Urinary retention Appointments: See Jordan Reyez MD for your next procedure. Please call for an appointment. [facility], . Future Appointments Date Time Provider Department Center 07/16/2015 10:30 Andrea Maddox MD [facility] None 07/29/2015 9:30 Andrea Maddox MD [facility] None 08/12/2015 10:45 Jesus Vaughan MD [facility] None 09/05/2015 9:30 Micheal Moseley MD [facility] None documented in this encounter Medications at Time of Discharge albuterol 90 mcg/actuation inhaler Inhale 2 Puffs as directed every 4 hours as needed. 09/18/2021 ALPRAZolam (XANAX) 1 mg tablet Take 1 mg by mouth 3 times daily. 09/30/2017 ciprofloxacin HCl (CIPRO) 500 mg tablet Take 1 Tab by mouth every 12 hours for 10 days 20 Tab 0 07/13/2015 07/15/2015 cyanocobalamin 500 mcg tablet Take 1,000 mcg [...] times daily as needed for up to 15 days for Pain 30 Tab 0 07/13/2015 07/15/2015 oxyCODONE (ROXICODONE) 5 mg immediate release tablet Take 1 Tab by mouth every 4 hours Daily Max: 30 mg 30 Tab 0 08/14/2015 08/18/2015 oxyCODONE (ROXICODONE) 5 mg immediate release tablet 1 -2 tabs every 4 - 6 hours as needed 5 Tab 0 07/13/2015 07/15/2015 pantoprazole (PROTONIX) 40 mg tablet Take 40 mg by mouth daily. 01/03/2019 rifAXImin (XIFAXAN) 550 mg tablet Take 550 mg by mouth 2 times daily 01/03/2019 tamsulosin (FLOMAX) 0.4 mg capsule Take 1 Cap by mouth daily 15 Cap 1 07/13/2015 05/04/2016 UNABLE TO FIND Xyfexen_ a liver antibioltic 07/29/2015 documented as of this encounter Ordered Prescriptions Prescription Sig Dispense Quantity Refills Last Filled Start Date End Date oxybutynin (DITROPAN) 5 mg tablet Take 1 Tab by mouth 3 times daily as needed for up to 15 days for Pain 30 Tab 0 07/13/2015 07/15/2015 tamsulosin (FLOMAX) 0.4 mg capsule Take 1 Cap by mouth daily 15 Cap 1 07/13/2015 05/04/2016 ciprofloxacin HCl (CIPRO) 500 mg tablet Take 1 Tab by mouth every 12 hours for 10 days 20 Tab 0 07/13/2015 07/15/2015 oxyCODONE (ROXICODONE) 5 mg immediate release tablet 1 -2 tabs every 4 - 6 hours as needed 5 Tab 0 07/13/2015 07/15/2015 documented in this encounter Discharge Disposition Disposition Code Departure Means Destination Home or Self Care documented in this encounter Progress Notes * Jossue Alatorre MD - 07/13/2015 0836 EDT Urology Progress Note POD#1, left stent placement S: Feeling well, pain controlled. Some blood in urine but emptying bladder. No CP, SOB, nausea. +ambulation. O: BP 114/59 mmHg Pulse 66 Temp(Src) 36.3 ??C (97.3 ??F) (Tympanic) Resp 18 Ht 165.1 cm (65) Wt 92.987 kg (205 lb) BMI 34.11 kg/m2 SpO2 98% Gen: NAD Resp: normal effort CV: RRR Abd: soft, non-distended : no camacho Recent Labs 07/12/15 0407 07/13/15 0353 WBC 2.75* 2.66* HGB 11.8 11.3* HCT 35.8 33.9* PLT 57* 59* Recent Labs 07/12/15 0407 07/13/15 0353 NA 138 137 K 3.9 4.1 CL 101 101 CO2 29 26 BUN 12 9* CREATININE -- 0.75 No results for input(s): PHOS, MG, CALCIUM in the last 72 hours. A/P 54yo woman with left sided kidney stone and fever prior to admission. Stent placed yesterday and observed overnight. No fevers or chills. Pain controlled. Ready for home. 1. Home with Cipro, ditropan, flomax. Oxy 5mg PRN 2. Return to OR for stone procedure this week or next Jossue Alatorre MD 07/13/2015 8:36 7am-5pm weekdays: Please page Urology pager ([phone]) with any questions Cosigned by Jordan Dickens MD at 07/22/2015 1:00 EDT Associated attestation - Jordan Dickens MD - 07/22/2015 0100 EDT I personally saw and examined the patient with the resident and reviewed the resident's interpretation and agree with the findings documented. * Armida Panda RT - 07/12/2015 2239 EDT Paged for overdue tx. Pt record showed RT comment of Nurse Admin but MAR not changed nor was consult completed by RT. Tx now late. Will consult and provide tx as soon as RT is available. documented in this encounter H&P Notes * Jossue Alatorre MD - 07/12/2015 09 EDT [facility] Emergency Department Consult Note Admit Date: 07/12/2015 Date of Service: 07/12/2015 PCP: Emigdio Centeno Requesting Attending: Araceli Fountain PA;Stevie,* Specialty Completing Consult: Urologic Surgery Consulting Attending: Jordan Dickens MD Chief Complaint: Left flank pain Reason for Consult: Urology was asked to see Tara at the request of Araceli Fountain PA;Stevie,* for evaluation of fevers and left obstructing stone HPI: Tara is a 54 y.o. female with several day history of fatigue and worsening pain. This AM temp was 101.2 and she had chills. Pain is in the left flank and intermittent in nature. Some nausea. Increased urgency and frequency. No gross hematuria. Reports have right sided stones in the past, no prior interventions. No CP, SOB. Past Medical History Diagnosis Date ??? Cirrhosis [...] tobacco: Never Used ??? Alcohol Use: No Grandfather with kidney stones No current facility-administered medications on file prior to encounter. Current Outpatient Prescriptions on File Prior to Encounter Medication Sig Dispense Refill ??? albuterol 90 mcg/actuation inhaler Inhale 2 Puffs as directed every 4 hours. ??? ALPRAZolam (XANAX) 1 mg tablet Take 1 mg by mouth 3 times daily. ??? cyanocobalamin 500 mcg tablet Take 1,000 [...] needed for Nausea 15 Tab 0 ??? oxyCODONE (ROXICODONE) 5 mg immediate release tablet 1 -2 tabs every 4 - 6 hours as needed 20 Tab 0 ??? pantoprazole (PROTONIX) 40 mg tablet Take 40 mg by mouth daily. ??? UNABLE TO FIND Xyfexen_ a liver antibioltic Allergies Allergen Reactions ??? Morphine Anaphylaxis ??? Tylenol [Acetaminophen] Other (See Comments) Contraindication with medical hx ??? Toradol [Ketorolac] Shortness Of Breath ??? Aspirin Other (See Comments) Contraindication with medical hx ??? Reglan [Metoclopramide Hcl] Rash ??? Sulfa (Sulfonamide Antibiotics) Rash Review of Systems: 10 point review of systems negative except as noted. Objective/Physical Exam: Vital Signs: Patient Vitals for the past 8 hrs: BP Pulse Resp Temp SpO2 07/12/15 0721 - 83 - - - 07/12/15 0713 116/53 mmHg - - - 97 % 07/12/15 0707 124/72 mmHg 88 18 37 ??C (98.6 ??F) 100 % 07/12/15 0311 131/74 mmHg 78 16 36.9 ??C (98.4 ??F) 100 % Weight: Weight : 92.987 kg (205 lb) Height: I and O: I&O By Type - 3 Shifts Including Current In: - Out: 30 [Urine:30] Exam: General Appearance: Awake, alert, No acute distress Skin: No rashes or lesions, warm Lungs: clear to auscultation bilaterally, good air entry Heart: RRR and no murmurs Abdomen: Soft, non-distended, +BS and Nontender Extremities: extremities warm, atraumatic, no edema Neuro: Grossly normal Back: Costovertebral Angle: present on left Genitourinary: No camacho Data Review: Labs: Recent Labs 07/12/15 0407 WBC 2.75* HGB 11.8 HCT 35.8 PLT 57* Recent Labs 07/12/15 0407 NA 138 K 3.9 CL 101 CO2 29 BUN 12 Imaging: Left distal 6x9mm stone with hydroureteronephrosis. No stones on right side. Bladder full. Impression: 54yo woman with obstructing stone, chronic leukopenia (WBC 2.8), thrombocytopenia (57) and fevers suggesting infection in obstructed system. Concern for SIRS, sepsis. Currently hemodynamically stablebut concern for decompensation due to low WBC and obstructed system. Need urgent decompression Suggestions/Recommendations: NPO Cipro OR for left ureteral stent Plan for observation post-op, DC in AM. Thank you for consulting us in the care of Tara Yun. We will, of course, continue to keep you informed of the patient's urological care and the results of our further evaluation. Jossue Alatorre MD 07/12/2015 9:23 Cosigned by Jordan Dickens MD at 07/22/2015 0:59 EDT Associated attestation - Jordan Dickens MD - 07/22/2015 0059 EDT I personally saw and examined the patient with the resident and reviewed the resident's interpretation and agree with the findings documented. documented in this encounter OR Notes * OR Surgeon - Jossue Alatorre MD - 07/13/2015 1917 EDT OPERATIVE REPORT SERVICE DATE: 07/12/2015 SURGEON: Jordan Dickens MD BELLOWS TESTER: Jossue Alatorre MD PROCEDURE: Cystoscopy, left retrograde pyelogram with intraoperative interpretation, complex left ureteral stent placement. ANESTHESIA: General INDICATIONS: This is a 54-year-old woman who presented with fevers and a distal obstructing left ureteral stone. Due to concern for infected obstructed system, she was taken urgently to the operatingroom for decompression. NARRATIVE: The patient brought to the operating room. Step 1 of the safety checklist performed followed by induction of general anesthesia. The patient was placed in lithotomy, prepped and draped in normal sterile fashion. Step 2 of the safety checklist was performed. A 22.5-Libyan cystoscope was inserted in the bladder and bladder surveyed showing no masses, lesions or stones. We attempted to place a 0.038 guidewire into the left ureteral orifice; however, we encountered stiff resistance in the distal ureter in the area of the expected stone. We then tried a 0.035 Glidewire, which we were able to navigate around the stone and passed the level of the renal pelvis. We then attempted to pass a 6-Libyan open-ended stent over the wire; however, we again met firm resistance. We then were able to successfully pass a 5-Libyan open-ended catheter up to the level of the renal pelvis. Retrograde pyelogram was performed with intraoperative interpretation with 10 mL of Omnipaque showing a dilatedsystem and hydroureter nephrosis with a filling defect in the distal ureter consistent with a stoneseen on CT scan. A 0.025 wire was then passed through this catheter to the renal pelvis and a 4.7-Libyan x variable length ureteral stent was passed over the wire, curled in the renal pelvis and in the bladder. Bladder was drained at the end of the case. Dr Dickens was present for the entirety of the case. BLOOD LOSS: Minimal. URINE OUTPUT: Not measured. SPECIMENS: Culture from left renal pelvis. FOREIGN MATERIALS: Left ureteral stent, 4.7 x variable length. COMPLICATIONS: None. CONDITION: Good. DISPOSITION: PACU. PLAN: The patient will be observed overnight for development of fever and planned ureteroscopy in the near future for her distal stone. Unless otherwise noted, there were no complications, no blood loss, no cultures obtained, no specimens removed, and no drains retained. Jordan Dickens MD 11 52 AM / Jossue Alatorre MD jn Confirmation: [id number] Dictation ID: [id number] Cosigned by Jordan Dickens MD at 07/22/2015 1:00 EDT Associated attestation - Jordan Dickens MD - 07/22/[address] Dickens was present for all the brown and critical portions of the procedure and actively participated in the care of this patient. documented in this encounter ED Notes * Araceli Fountain PA - 07/12/2015 1030 EDT Sign out from Elian ELDRIDGE at 600. Pt here with L flank pain, 7 mm obstructing stone L side on CT renal colic. Evaluated pt at 630. States she had a temp of 101.2 at home with rigors x 2 days. Persistent pain despite many doses of dilaudid and 50 mcg of fentanyl. Looks uncomfortable. Urine with 5-10 WBC, no bacteria. Chronically low WBC count. D/w urology resident who will see pt for likely stent. Dr. Hubbard ED attending aware of likely admission. Seen and evaluated by urology, antibx dose given and admitted under their service. * Romy Pérez RN - 07/12/2015 1011 EDT Awaiting OR * Romy Pérez RN - 07/12/2015 0759 EDT Urine screened for stone. No stone visualized. Dr. Hubbard to room to see patient. * Sal Hubbard MD - 07/12/2015 0752 EDT DOS: 07/12/2015 Chief Complaint Patient presents with ??? Flank Pain Pt arrives via EMS with 9/10 L flank pain that started 2hrs ago. Hx kidney stones. Noticed blood inurine today. N/V and chills last 2 days as well. Mod distress. HPI The patient is a 54 y.o. female who presents today with Flank Pain HPI Comments: I performed a history and exam of Tara Yun and discussed the case with the physician assistant manager. I reviewed this individual's note and I concur with the documented findings and plan of care. The patient is a 54-year-old female with a history of fatty liver disease, low platelets and low white blood cell count, rheumatoid arthritis, and asthma/COPD who presents with severe left flank pain of several hours duration. Patient states for the past couple of days she has had chills, fever, nausea and vomiting. Patient denies dysuria or urinary frequency. Patient did note blood in her urine. Patient denies headache, neck pain, sore throat, earache. Patient denies cough, chest congestion orshortness of breath. Patient notes left flank pain. Patient denies diarrhea, black or bloody stools. Patient denies a history of trauma to her flank. Patient now presents for further evaluation and treatment. The history is provided by the patient and medical records. Flank Pain Pain location: R flank Pain quality: aching and sharp Pain radiates to: RLQ Pain severity: Severe Onset quality: Sudden Timing: Constant Progression: Worsening Chronicity: New Relieved by: Nothing Worsened by: Nothing tried Ineffective treatments: None tried Associated symptoms: chills, fatigue, fever, hematuria, nausea and vomiting Associated symptoms: no chest pain, no constipation, no cough, no diarrhea, no dysuria, no melena, no shortness of breath and no sore throat Review of Systems Review of Systems Constitutional: Positive for fever, chills and fatigue. HENT: Negative for congestion, rhinorrhea and sore throat. Eyes: Negative for visual disturbance. Respiratory: Negative for cough, chest tightness and shortness of breath. Cardiovascular: Negative for chest pain. Gastrointestinal: Positive for nausea and vomiting. Negative for abdominal pain, diarrhea, constipation and melena. Genitourinary: Positive for hematuria and flank pain (Severe left flank pain). Negative for dysuriaand difficulty urinating. Musculoskeletal: Positive for back pain. Negative for neck pain and neck stiffness. Skin: Negative for rash and wound. Neurological: Negative for dizziness, weakness and light-headedness. Hematological: Does not bruise/bleed easily. Psychiatric/Behavioral: Negative [...] ??C (98.6 ??F) Temp src: Oral Pulse: 83 Resp: 18 SpO2: 97 % BP: 116/53 mmHg BP Device: BP Machine Patient Position: Sitting O2 Device: None (Room air) Physical Exam Constitutional: She is oriented to person, place, and time. She appears well- developed and well-nourished. She appears distressed. HENT: Head: Normocephalic and atraumatic. Right Ear: External ear normal. Left Ear: External ear normal. Nose: Nose normal. Mouth/Throat: Oropharynx is clear and moist. Eyes: Conjunctivae and EOM are normal. Pupils are equal, round, and reactive to light. Right eye exhibits no discharge. Neck: Normal range of motion. Neck supple. Cardiovascular: Normal rate, regular rhythm, normal heart sounds and intact distal pulses. Pulmonary/Chest: Effort normal and breath sounds normal. No respiratory distress. Abdominal: Soft. Bowel sounds are normal. There is no tenderness. Musculoskeletal: Normal range of motion. She exhibits no edema. Tenderness over the left flank Neurological: She is alert and oriented to person, place, and time. She has normal strength. No cranial nerve deficit or sensory deficit. Skin: Skin is warm and dry. No rash noted. Psychiatric: She has a normal mood and affect. Nursing note and vitals reviewed. ED Lab Results Labs Reviewed HEMAGRAM AND DIFFERENTIAL - Abnormal WBC 2.75 (*) Final RDW-CV 15.0 (*) Final PLT 57 (*) Final Lymphocytes 9.4 (*) Final Basophils 1.5 (*) Final ABS Neutrophils 2.04 (*) Final ABS Lymphs 0.26 (*) Final RBC 4.18 Final Hemoglobin 11.8 Final HCT 35.8 Final MCV 86 Final MCH 28.3 Final MCHC 33.1 Final RDW-SD 44.2 Final MPV 8.5 Final Neutrophils 74.3 Final Monocytes 11.5 Final Eosinophils 3.3 Final ABS Monocytes 0.32 Final ABS Eosinophils 0.09 Final ABS Basophils 0.04 Final Type of Diff: Automated Final HEPATIC FUNCTION PANEL (ALB,ALK PHOS,ALT,AST,DBIL,TOT LUIS,TOT PROT) - Abnormal Albumin 3.3 (*) Final Total Protein 6.4 Final Total Alkaline Phosphatase 98 Final ALT 35 Final AST 30 Final Unconjugated Bilirubin 0.2 Final Conjugated Bilirubin 0.0 Final Bilirubin, Total 0.5 Final GLUCOSE, SERUM - Abnormal Glucose, Serum 103 (*) Final URINE MICROSCOPIC ONLY - Abnormal Squam Epithel, UA Frequent (*) Final WBC, UA 5 to 10 Final RBC, UA >50 Final Renal Epithel, UA None seen Final Bacteria, UA None seen Final Crystals, UA None seen Final Casts, UA None seen Final UA Comment Microscopic results Final UA Comment Few transitional epithelial cells. Final PROTIME - Abnormal Pro Time 13.5 (*) Final I.N.R. 1.2 (*) Final ELECTROLYTES Sodium 138 Final Potassium 3.9 Final Chloride 101 Final CO2 29 Final BUN BUN 12 Final LIPASE Lipase 127 Final PTT PTT 34 Final Procedures ED COURSE A medical screening exam was performed. The patient is a 54-year-old female who presents with a chief complaint of fever, chills and right flank pain. Physical exam as above Patient hydrated with intravenous normal saline Pain treated with multiple doses of intravenous hydromorphone. Nausea treated intravenous Zofran. Laboratory tests reviewed-urinalysis demonstrated greater than 50 red blood cells, 5-10 white bloodcells, and frequent squamous epithelial cells Blood tests-W BC 2.75, platelets 57,[address] scan-independently reviewed by myself, with radiologist 7 mm obstructing stone Patient treated with 500 mg of intravenous ciprofloxacin. In the setting of fever chills and an obstructing stone urology consultation obtained. Urology consultation obtained. Patient admitted to the urology service for stent placement. ASSESSMENT AND PLAN Final diagnoses: Kidney stone DISPOSITION: Admitted The patient's pain was managed to an adequate level weighing risk vs. benefit of further medications. Upon departure from the Emergency Department, the patient's pain was 2 on a zero to ten scale. Condition at departure from the Emergency Department: Stable PCP: Emigdio ROLLE Number of Diagnoses or Management Options Kidney stone: new, needed workup Amount and/or Complexity of Data Reviewed Clinical lab tests: reviewed Tests in the radiology section of CPT??: reviewed Discuss the patient with other providers: yes (Physician's assistant manager Urology consultation) Independent visualization of images, tracings, or specimens: yes (Urinalysis, blood tests, renal colic CT scan) Risk of Complications, Morbidity, and/or Mortality Presenting problems: high Diagnostic procedures: high Management options: high General comments: 5 Patient Progress Patient progress: improved Adrienne Dickens 07/12/2015 9:05 No flowsheet data found. * Romy Pérez RN - 07/12/2015 0750 EDT Patient ambulated to bathroom without assistance. * Romy Pérez RN - 07/12/2015 0738 EDT CHENTE Fountain in to review results with patient. Patient alert. * Romy Pérez RN - 07/12/2015 0728 EDT Assumed care of patient after report from KENN Roberson. Patient first observed in darkened room lying on stretcher with eyes closed. Opens eyes in response to name. Reports pain is 7/10 and nausea is better. Asking for something to drink. Mucous membranes dry. Skin warm, dry, pink. Ice chips provided. * Julissa Luther RN - 07/12/2015 0527 EDT Pt returning from CT states pain still there, but a little better. Rating pain 6/10 at L flank. * Julissa Luther RN - 07/12/2015 0454 EDT Patient transported to CT via stretcher. * Heike Plummer PA - 07/12/2015 0359 EDT DOS: 07/12/2015 Chief Complaint Patient presents with ??? Flank Pain Pt arrives via EMS with 9/10 L flank pain that started 2hrs ago. Hx kidney stones. Noticed blood inurine today. N/V and chills last 2 days as well. Mod distress. HPI The patient is a 54 y.o. female who presents today with Flank Pain HPI Comments: 54-year-old female patient here with a history of cirrhosis, asthma, known low platelets, rheumatoid arthritis with complaint of nausea onset 2 days ago, left flank pain this evening. Patient denies any trauma. Patient states she has known kidney stones but has never passed one before. Patient also notes 2 nights ago she awoke with it was 90?? out with chills changing into her flannel pajamas. She is denying chest pain, shortness of breath, pain with urination. Patient notes when she wiped herself blood-tinged on the toilet paper. The history is provided by the patient. Flank Pain Associated symptoms: chills, nausea and vomiting Associated symptoms: no chest pain, no cough, no dysuria, no fever and no shortness of breath Review of Systems Review of Systems Constitutional: Positive for chills. Negative for fever. Respiratory: Negative for cough and shortness of breath. Cardiovascular: Negative for chest pain. Gastrointestinal: Positive for nausea, vomiting and abdominal pain. Genitourinary: Positive for flank pain and difficulty urinating. Negative for dysuria. Musculoskeletal: Positive for back pain. Negative for neck pain. All other systems reviewed and are negative. [...] Vital Signs Temp: 36.3 ??C (97.3 ??F) Temp src: Tympanic Pulse: 66 Heart Rate: 67 BPM Resp: 18 SpO2: 98 % BP: 114/59 mmHg BP Device: BP Machine Patient Position: Sitting BP Cuff Location: Left arm O2 Flow Rate (L/min): 2 l/min O2 Device: None (Room air) Physical Exam Constitutional: She is oriented to person, place, and time. She appears well- developed and well-nourished. HENT: Head: Normocephalic. Dry mucosa Eyes: Conjunctivae are normal. Pupils are equal, round, and reactive to light. Neck: Normal range of motion. Cardiovascular: Normal rate, regular rhythm and normal heart sounds. No murmur heard. Pulmonary/Chest: Effort normal and breath sounds normal. No respiratory distress. Abdominal: Soft. Bowel sounds are normal. There is tenderness. There is no rebound and no guarding. Left mid lateral abdominal discomfort, left flank pain Neurological: She is alert and oriented to person, place, and time. Skin: Skin is warm and dry. Psychiatric: She has a normal mood and affect. Nursing note and vitals reviewed. RESULTS EKG orders: None Radiology orders: CT RENAL COLIC RETROGRADE UROGRAM Imaging Reviewed. I have independently reviewed the images. Results are notable for 6 mm stone leftdistal ureter mild hydro ED Lab Results Labs Reviewed HEMAGRAM AND DIFFERENTIAL - Abnormal WBC 2.75 (*) Final RDW-CV 15.0 (*) Final PLT 57 (*) Final Lymphocytes 9.4 (*) Final Basophils 1.5 (*) Final ABS Neutrophils 2.04 (*) Final ABS Lymphs 0.26 (*) Final RBC 4.18 Final Hemoglobin 11.8 Final HCT 35.8 Final MCV 86 Final MCH 28.3 Final MCHC 33.1 Final RDW-SD 44.2 Final MPV 8.5 Final Neutrophils 74.3 Final Monocytes 11.5 Final Eosinophils 3.3 Final ABS Monocytes 0.32 Final ABS Eosinophils 0.09 Final ABS Basophils 0.04 Final Type of Diff: Automated Final HEPATIC FUNCTION PANEL (ALB,ALK PHOS,ALT,AST,DBIL,TOT LUIS,TOT PROT) - Abnormal Albumin 3.3 (*) Final Total Protein 6.4 Final Total Alkaline Phosphatase 98 Final ALT 35 Final AST 30 Final Unconjugated Bilirubin 0.2 Final Conjugated Bilirubin 0.0 Final Bilirubin, Total 0.5 Final GLUCOSE, SERUM - Abnormal Glucose, Serum 103 (*) Final URINE MICROSCOPIC ONLY - Abnormal Squam Epithel, UA Frequent (*) Final WBC, UA 5 to 10 Final RBC, UA >50 Final Renal Epithel, UA None seen Final Bacteria, UA None seen Final Crystals, UA None seen Final Casts, UA None seen Final UA Comment Microscopic results Final UA Comment Few transitional epithelial cells. Final PROTIME - Abnormal Pro Time 13.5 (*) Final I.N.R. 1.2 (*) Final HEMAGRAM - Abnormal WBC 2.66 (*) Final Hemoglobin 11.3 (*) Final HCT 33.9 (*) Final RDW-CV 15.4 (*) Final PLT 59 (*) Final RBC 3.92 Final MCV 86 Final MCH 28.7 Final MCHC 33.2 Final RDW-SD 46.4 Final MPV 8.4 Final BUN - Abnormal BUN 9 (*) Final SCREENING GLUCOSE - Abnormal Glucose, Screening 124 (*) Final BACTERIAL CULTURE, URINE ELECTROLYTES Sodium 138 Final Potassium 3.9 Final Chloride 101 Final CO2 29 Final BUN BUN 12 Final LIPASE Lipase 127 Final PTT PTT 34 Final ELECTROLYTES Sodium 137 Final Potassium 4.1 Final Chloride 101 Final CO2 26 Final CREATININE Creatinine 0.75 Final GFR, Calculated 91 Final Procedures ED COURSE A medical screening exam was performed. Pt was seen and evaluated, sign out to Araceli Fountain PA-C pt with continued flank pain, will need Urology consult. Labs pt with WBC of 2.66 ASSESSMENT AND PLAN Final diagnoses: Kidney stone DISPOSITION: Admitted The patient's pain was managed to an adequate level weighing risk vs. benefit of further medications. Upon departure from the Emergency Department, the patient's pain was 8 on a zero to ten scale. Condition at departure from the Emergency Department: Good PCP: Emigdio Centeno MDM Number of Diagnoses or Management Options Diagnosis management comments: Calculi, UTI, pyelonephritis, gastritis 5 Amount and/or Complexity of Data Reviewed Clinical lab tests: ordered and reviewed Tests in the radiology section of CPT??: ordered Review and summarize past medical records: yes Adrienne Dickens 07/13/2015 6:07 No flowsheet data found. documented in this encounter Miscellaneous Notes * Plan of Care - Lc Nichole RN - 07/13/2015 0924 EDT Problem: Daily Care Plan Goals Goal: Care Plan Documentation Outcome: Met This Shift 07/13/15 0820 Care Plan Focus Goal This Shift discharge pt Nursing Discharge Note D: Patient noted with discharge orders to: home. A: Prescriptions provided to patient. Reviewed discharge instructions and prescriptions with Patient IV d/c'd. Belongings collected and sent home with patient. R: Patient verbalized understanding of discharge instructions and denied further questions. Lc Nichole RN 07/13/2015 9:24 * Plan of Care - Flo Leone - 07/13/2015 0203 EDT Problem: Daily Care Plan Goals Goal: Care Plan Documentation Outcome: Ongoing 07/12/151954 Care Plan Focus Area of Focus Pain/ Comfort Goal This Shift will remain at a tolerable pain during this shift. Nursing Pain Note D: At 1940 patient c/o pain 7/10. Pain located in the lower Back/flank pain. Pt ambulating independently in room/hallway and voiding with 1-2 small blood clots. +Flatus and CSMTs intact. A: Patient receiving scheduled and PRN medications. See MAR. Provided the following non-pharmacologic interventions: repositioning, distraction and rest. R: Upon reassessment pt still reports pain 7/10. Will continue to monitor and adjust interventions as necessary. Call hines within reach. Flo Leone RN 07/13/2015 1:56 * Plan of Care - Lc Nichole RN - 07/12/2015 1717 EDT Problem: Daily Care Plan Goals Goal: Care Plan Documentation Outcome: Met This Shift 07/12/15 1550 Care Plan Focus Goal This Shift pain will be tolerable to well controlled Data: Pt arrived on unit from PACU @ 1540. A&Ox3. BP 102/60 mmHg Pulse 77 Temp(Src) 36.3 ??C (97.3 ??F) (Tympanic) Resp 16 Ht 165.1 cm (65) Wt 92.987 kg (205 lb) BMI 34.11 kg/m2 SpO2 98% C/o left sided flank pain @ 6/10. IVF infusing. Lung sounds clear. Bowel sounds hypoactive. Action: Oriented pt to room and call hines. Administered scheduled and prn medications (see MAR). Response: Pt ambulating independently in room and hallway. Tolerating well. Voiding pink tinged urine with one small blood clot. Pt c/o burning sensation when urinating. Pain improving per pt report @ 5/10. Will continue to monitor and adjust interventions as necessary. Lc Nichole RN 07/12/2015 17:11 * Anesthesia Post-[place] - Jamie Bonds CRNA - 07/12/2015 1346 EDT Post Anesthesia Evaluation Note Date of Service: 07/12/2015 Tara Yun, a 54 y.o. year old female has received General Anesthesia She has been evaluated, assessed and discharged from anesthesia care with stable cardiorespiratory function and alert mentalstatus. The last set of recorded vital signs and pain rating were reviewed: Temp: 36.6 ??C (97.9 ??F) (07/12/15 1308), Heart Rate: 91 BPM (07/12/15 1330), BP: 139/77 mmHg (07/12/15 1330), Resp: 18 (07/12/15 1330), SpO2: 97 % (07/12/15 1330),Numeric Pain Level (Scale 1-10): 4 Tara Yun participated in this evaluation unless otherwise noted. Her pain, nausea and vomiting have been managed and her body temperature and fluid balance have been restored. Additional monitoring and assessment needs have been addressed. If present, any postoperative events are documented below. If the regional block for postoperative analgesia was intended to last greater than 48 hours, Tara Yun will be followed by the Acute Pain Service. Jamie Bonds CRNA 07/12/2015 13:46 documented in this encounter Plan of Treatment Upcoming Encounters Date Type Department Care Team (Late st Contact Info) Description 01/04/2025 13:00 EST Office Visit [facility] Ophthalmology - [address] [phone] Gagandeep Rome MD [address] [place] [address], [facility] [address] [place] [phone] 02/11/2025 13:30 EDT Telemedicine [facility] Hematology & Oncology - [address] [phone] Dana Padilla MD [address] [place] [address], [address] [place] [phone] documented as of this encounter Procedures Procedure Name Priority Date/Time Associated Diagnosis Comments IMPLANT RECORD - SCANNED 07/16/2015 14:34 EDT ECG REPORT - SCANNED 07/16/2015 14:34 EDT SCREENING GLUCOSE Routine 07/13/2015 3:5 3 EDT COMPLETE BLOOD COUNT Routine 07/13/2015 3:53 EDT BUN Routine 07/13/2015 3:53 EDT CREATININE Routine 07/13/2015 3:53 EDT ELECTROLYTES Routine 07/13/2015 3:53 EDT RETROGRADE UROGRAM Routine 07/12/2015 13 :01 EDT BACTERIAL CULTURE, URINE Routine 07/12/2015 12:[address] RENAL COLIC WO CONTRAST 07/12/2015 5:06 EDT URINE SEDIMENT (MICRO) WITHOUT REFLEX TO CULTURE STAT 07/12/2015 4:07 EDT PTT STAT 07/12/2015 4:07 EDT PROTIME STAT 07/12/2015 4:07 EDT COMPLETE BLOOD COUNT AND DIFFERENTIAL STAT 07/12/2015 4:07 EDT BUN STAT 07/12/2015 4:07 EDT LIPASE STAT 07/12/2015 4:07 EDT GLUCOSE, SERUM STAT 07/12/2015 4:07 EDT HEPATIC FUNCTION PANEL (ALB,ALK PHOS,ALT,AST,DBIL,TOT LUIS,TOT PROT) STAT 07/12/2015 4:07 EDT ELECTROLYTES STAT 07/12/2015 4:07 EDT documented in this encounter Results * IMPLANT RECORD - SCANNED (07/16/2015 14:34 EDT) 07/16/2015 14:3 4 EDT us Scan 2 [employer] PROCEDURE/MINOR SURGICAL OR DERABLES Final Result * ECG REPORT - SCANNED (07/16/2015 14:34 EDT) 07/16/2015 14:3 4 EDT us Scan 2 [employer] PROCEDURE/MINOR SURGICAL OR DERABLES Final Result * (ABNORMAL) SCREENING GLUCOSE (07/13/2015 3:53 EDT) Glucose, Screening 124(H) 70 - 100 mg/dl 07/13/2015 5:03 EDT [facility] Blood specimen (specimen) BLOOD SPECIMEN / Unknown 07/13/2015 3:53 EDT 07/13/2015 4:23 EDT Jossue Alatorre MD CHEMISTRY & BLOOD GAS ORDE RABLES Final Result Performing Organization Address City/[facility]/ZIP Co de Phone Number [facility] [address] [place] [address] * CREATININE (07/13/2015 3:53 EDT) Creatinine 0.75 0.52 - 1.04 mg/dl 07/13/2015 5:03 EDT [facility] GFR, Calculated 91 >60 ml/min/1.7 3m2 07/13/2015 5:03 EDT [facility] Comment: eGFR calculated using CKD-EPI equation for non Americans. Multiply eGFR by 1.16 for Americans. Blood specimen (specimen) BLOOD SPECIMEN / Unknown 07/13/2015 3:53 EDT 07/13/2015 4:23 EDT Jossue Alatorre MD CHEMISTRY & BLOOD GAS ORDE RABLES Final Result [facility] [address] [place] [address] * (ABNORMAL) BUN (07/13/2015 3:53 EDT) BUN 9(L) 10 - 26 mg/dl 07/13/2015 5:03 EDT [facility] Blood specimen (specimen) BLOOD SPECIMEN / Unknown 07/13/2015 3:53 EDT 07/13/2015 4:23 EDT us Jossue Alatorre MD CHEMISTRY & BLOOD GAS ORDE RABLES Final Result Performing Organization Address [facility] Co de Phone Number [facility] [address] [place] [address] * ELECTROLYTES (07/13/2015 3:53 EDT) Sodium 137 136 - 145 mEq/L 07/13/2015 5:03 EDT [facility] Potassium 4.1 3.5 - 5.0 mEq/L 07/13/2015 5:03 EDT [facility] Chloride 101 96 - 110 mEq/L 07/13/2015 5:03 EDT [facility] CO2 26 24 - 32 mEq/L 07/13/2015 5:03 EDT [facility] Blood specimen (specimen) BLOOD SPECIMEN / Unknown 07/13/2015 3:53 EDT 07/13/2015 4:23 EDT us Jossue Alatorre MD CHEMISTRY & BLOOD GAS ORDE RABKIANNA Final Result Performing Organization Address [facility] Co de Phone Number [facility] [address] [place] [address] * (ABNORMAL) HEMAGRAM (07/13/2015 3:53 EDT) WBC 2.66(L) 4.0 - 12.4 K/cmm 07/13/2015 4:40 EDT [facility] RBC 3.92 3.86 - 5.04 M/cmm 07/13/2015 4:40 EDT [facility] Hemoglobin 11.3(L) 11.6 - 15.2 gm/dl 07/13/2015 4:40 EDT [facility] HCT 33.9(L) 34.9 - 44.4 % 07/13/2015 4:40 EDT [facility] MCV 86 81 - 98 fl 07/13/2015 4:40 EDT [facility] MCH 28.7 26.7 - 33.3 pg 07/13/2015 4:40 EDT [facility] MCHC 33.2 32.1 - 35.9 gm/dl 07/13/2015 4:40 EDT [facility] RDW-CV 15.4(H) 11.7 - 14.6 % 07/13/2015 4:40 EDT [facility] RDW-SD 46.4 37.6 - 50.3 fl 07/13/2015 4:40 EDT [facility] PLT 59(L) 141 - 320 K/cmm 07/13/2015 4:40 EDT [facility] MPV 8.4 7.5 - 11.2 fl 07/13/2015 4:40 EDT [facility] Blood specimen (specimen) BLOOD SPECIMEN / Unknown 07/13/2015 3:53 EDT 07/13/2015 4:23 EDT us Jossue Alatorre MD HEMATOLOGY & PF4 ORDERABLE S Final Result Performing Organization Address [facility] Co de Phone Number [facility] [address] [place] [address] * RETROGRADE UROGRAM (07/12/2015 13:01 EDT) Anatomical Region Laterality Modality Other 07/12/2015 13:0 1 EDT Narrative 07/12/2015 13:01 EDT Non Reportable Exam Procedure Note [employer]ODUCT [employer]AF[employer]Y ASSOCIATE, IMAGING - 07/12/2015 Non Reportable Exam us Jordan Dickens MD IMG FLUOROSCOPY ORDERABLE S Final Result * BACTERIAL CULTURE, URINE (07/12/2015 12:50 EDT) Result No growth 07/15/2015 7:52 EDT [facility] URINE / Unknown 07/12/2015 1 2:50 EDT 07/14/2015 8:48 EDT us Jordan Dickens MD MICROBIOLOGY - GENERAL OR DERABLES Final Result [facility] [address] [place] [id number] * CT RENAL COLIC (07/12/2015 5:06 EDT) Anatomical Region Laterality Modality Other 07/12/2015 5:06 EDT 07/12/2015 10:26 EDT Narrative 07/12/2015 10:[address] RENAL COLIC ??07/12/2015 5:06 AM Signs and Symptoms/Comments: ?? Left flank pain. Technique: Helically acquired CT images of the abdomen and pelvis from the top of the kidneys to the symphysis pubis without the use of intravenous contrast. Comparison: Compared with CT scan December 10, 2014. Findings: Since the previous examination, there has been interval migration of the previously identified stone in the left kidney to the distal left ureter. This stone measures approximately 6 mm in transverse dimension on axial image 188. It results in a mild degree of hydronephrosis of the left kidney. The right kidney demonstrates no evidence of calculi or hydronephrosis. The visualized inferior half of the liver again demonstrates a nodular contour. The spleen is enlarged. The unenhanced images of the visualized portions of the pancreas and adrenals are unremarkable. The gallbladder is absent. Again seen are small nodes in the retroperitoneum. There has been previous right-sided ventral hernia repair with mesh. Lung bases are clear. Impression: 1. 6 mm stone in the distal left ureter resulting in a mild degree of hydroureteronephrosis. Correlation with urinalysis is recommended to exclude superimposed infection. 2. Cirrhosis with portal hypertension and splenomegaly. 3. Status post cholecystectomy. Procedure Note Brandy Zhao MD - 07/12/2015 CT RENAL COLIC 07/12/2015 5:06 AM Signs and Symptoms/Comments: Left flank pain. Technique: Helically acquired CT images of the abdomen and pelvis from the top of the kidneys to the symphysis pubis without the use of intravenous contrast. Comparison: Compared with CT scan December 10, 2014. Findings: Since the previous examination, there has been interval migration of the previously identified stone in the left kidney to the distal left ureter. This stone measures approximately 6 mm in transverse dimension on axial image 188. It results in a mild degree of hydronephrosis of the left kidney. The right kidney demonstrates no evidence of calculi or hydronephrosis. The visualized inferior half of the liver again demonstrates a nodular contour. The spleen is enlarged. The unenhanced images of the visualized portions of the pancreas and adrenals are unremarkable. The gallbladder is absent. Again seen are small nodes in the retroperitoneum. There has been previous right-sided ventral hernia repair with mesh. Lung bases are clear. Impression: 1. 6 mm stone in the distal left ureter resulting in a mild degree of hydroureteronephrosis. Correlation with urinalysis is recommended to exclude superimposed infection. 2. Cirrhosis with portal hypertension and splenomegaly. 3. Status post cholecystectomy. Heike Plummer PA-C IMG CT ORDERABLES Final Result * PTT (07/12/2015 4:07 EDT) Pathologist [facility] PTT 34 26 - 37 secs 07/12/2015 4:43 EDT [facility] Comment:Therapeutic Heparin range: 65-100 seconds Blood specimen (specimen) BLOOD SPECIMEN / Unknown 07/12/2015 4:07 EDT 07/12/2015 4:16 EDT Heike Plummer PA-C HEMATOLOGY & PF4 ORDERABLES Pricila l Result Performing Organization Address City/State/[facility] Co de Phone Number [facility] [address] [place] [address] * (ABNORMAL) PROTIME (07/12/2015 4:07 EDT) Pro Time 13.5(H) 10.1 - 13.0 secs 07/12/2015 4:43 EDT [facility] I.N.R. 1.2(H) 0.9 - 1.1 Ratio 07/12/2015 4:43 EDT [facility] Comment: Moderate Intensity Coumadin INR = 2.0-3.0 Adjustments in anticoagulant therapy dose should be based upon the INR and NOT the Pro Time. Blood specimen (specimen) BLOOD SPECIMEN / Unknown 07/12/2015 4:07 EDT 07/12/2015 4:16 EDT Heike Plummer PA-C HEMATOLOGY & PF4 ORDERABLES Pricila l Result [facility] [address] [place] [address] * (ABNORMAL) URINE MICROSCOPIC ONLY (07/12/2015 4:07 EDT) WBC, UA 5 to 10 0 - 5 /HPF 07/12/2015 6:28 EDT [facility] RBC, UA >50 0 - 5 /HPF 07/12/2015 6:28 EDT [facility] Squam Epithel, UA Frequent(A) None seen /HPF 07/12/2015 6:28 EDT [facility] Renal Epithel, UA None seen None seen /HPF 07/12/2015 6:28 EDT [facility] Bacteria, UA None seen None seen /HPF 07/12/2015 6:28 EDT [facility] Crystals, UA None seen /HPF 07/12/2015 6:28 T [facility] Hyaline Casts, UA None seen /LPF 07/12/2015 6:28 EDT [facility] UA Comment Microscopic results 07/12/2015 3:59 T [facility] Comment: are unreliable on urines unrefrig >2hrs or refrig >8hrs. Additional Findings Few transitional epithelial cells. 07/12/2015 6:28 EDT [facility] Urine specimen (specimen) URINE / Unknown 07/12/2015 4:07 EDT 07/12/2015 6:14 EDT Heike Plummer PA-C URINALYSIS ORDERABLES Final Resu lt [facility] [address] [place] [address] * (ABNORMAL) GLUCOSE, SERUM (07/12/2015 4:07 EDT) Glucose, Serum 103(H) 70 - 100 mg/dl 07/12/2015 4:32 EDT [facility] Blood specimen (specimen) BLOOD SPECIMEN / Unknown 07/12/2015 4:07 EDT 07/12/2015 4:16 EDT us Heike ELDRIDGE-C CHEMISTRY & BLOOD GAS ORDERABLES Final Result Performing Organization Address City/[facility]/ZIP Co de Phone Number [facility] [address] [place] [address] * LIPASE (07/12/2015 4:07 EDT) Lipase 127 <251 U/L 07/12/2015 4:32 EDT [facility] Blood specimen (specimen) BLOOD SPECIMEN / Unknown 07/12/2015 4:07 EDT 07/12/2015 4:16 EDT us Heike Plummer CHENTE-C CHEMISTRY & BLOOD GAS ORDERABLES Final Result Performing Organization Address [facility] de Phone Number [facility] [address] [place] [address] * (ABNORMAL) HEPATIC FUNCTION PANEL (ALB,ALK PHOS,ALT,AST,DBIL,TOT LUIS,TOT PROT) (07/12/2015 4:07 EDT) Albumin 3.3(L) 3.4 - 4.9 g/dl 07/12/2015 4:32 [facility] Total Protein 6.4 6.3 - 8.2 g/dl 07/12/2015 4:32 [facility] Total Alkaline Phosphatase 98 38 - 126 U/L 07/12/2015 4:32 [facility] ALT 35 <53 U/L 07/12/2015 4:32 [facility] AST 30 15 - 46 U/L 07/12/2015 4:32 [facility] Unconjugated Bilirubin 0.2 0.0 - 1.1 mg/dl 07/12/2015 4:32 [facility] Conjugated Bilirubin 0.0 0.0 - 0.3 mg/dl 07/12/2015 4:32 [facility] Bilirubin, Total 0.5 <1.4 mg/dl 07/12/20 15 4:32 [facility] Blood specimen (specimen) BLOOD SPECIMEN / Unknown 07/12/2015 4:07 EDT 07/12/2015 4:16 EDT us Heike Plummer PA-C CHEMISTRY & BLOOD GAS ORDERABLES Final Result Performing Organization Address [facility] Co de Phone Number [facility] [address] [place] [address] * BUN (07/12/2015 4:07 EDT) BUN 12 10 - 26 mg/dl 07/12/2015 4:32 EDT [facility] Blood specimen (specimen) BLOOD SPECIMEN / Unknown 07/12/2015 4:07 EDT 07/12/2015 4:16 EDT us Heike Plummer PA-C CHEMISTRY & BLOOD GAS ORDERABLES Final Result Performing Organization Address [facility] [facility] de Phone Number [facility] [address] [place] [address] * ELECTROLYTES (07/12/2015 4:07 EDT) Sodium 138 136 - 145 mEq/L 07/12/2015 4:32 EDT [facility] Potassium 3.9 3.5 - 5.0 mEq/L 07/12/2015 4:32 EDT [facility] Chloride 101 96 - 110 mEq/L 07/12/2015 4:32 EDT [facility] CO2 29 24 - 32 mEq/L 07/12/2015 4:32 EDT [facility] Blood specimen (specimen) BLOOD SPECIMEN / Unknown 07/12/2015 4:07 EDT 07/12/2015 4:16 EDT us Heike Plummer PA-C CHEMISTRY & BLOOD GAS ORDERABLES Final Result Performing Organization Address [facility] Co de Phone Number [facility] [address] [place] [address] * (ABNORMAL) HEMAGRAM AND DIFFERENTIAL (07/12/2015 4:07 EDT) WBC 2.75(L) 4.0 - 12.4 K/cmm 07/12/2015 5:14 [facility] RBC 4.18 3.86 - 5.04 M/cmm 07/12/2015 5:14 [facility] Hemoglobin 11.8 11.6 - 15.2 gm/dl 07/12/2015 5:14 [facility] HCT 35.8 34.9 - 44.4 % 07/12/2015 5:14 [facility] MCV 86 81 - 98 fl 07/12/2015 5:14 [facility] MCH 28.3 26.7 - 33.3 pg 07/12/2015 5:14 [facility] MCHC 33.1 32.1 - 35.9 gm/dl 07/12/2015 5:14 [facility] RDW-CV 15.0(H) 11.7 - 14.6 % 07/12/2015 5:14 [facility] RDW-SD 44.2 37.6 - 50.3 fl 07/12/2015 5:14 [facility] PLT 57(L) 141 - 320 K/cmm 07/12/2015 5:14 [facility] MPV 8.5 7.5 - 11.2 fl 07/12/2015 5:14 [facility] % Neutrophils 74.3 45.5 - 79.7 % 07/12/2015 5:14 [facility] % Lymphocytes 9.4(L) 15.0 - 46.8 % 07/12/2015 5:14 [facility] % Monocytes 11.5 1.8 - 12.0 % 07/12/2015 5:14 [facility] % Eosinophils 3.3 0.6 - 6.9 % 07/12/2015 5:14 [facility] % Basophils 1.5(H) 0.2 - 1.4 % 07/12/2015 5:14 [facility] ABS Neutrophils 2.04(L) 2.20 - 8.85 K/cmm 07/12/2015 5:14 EDT [facility] ABS Lymphs 0.26(L) 1.09 - 3.30 K/cmm 07/12/2015 5:14 EDT [facility] ABS Monocytes 0.32 0.1 - 0.8 K/cmm 07/12/2015 5:14 EDT [facility] ABS Eosinophils 0.09 0.03 - 0.61 K/cm 07/12/2015 5:14 EDT [facility] ABS Basophils 0.04 0.01 - 0.11 K/cmm 07/12/2015 5:14 EDT [facility] Type of Diff: Automated 07/12/2015 5:14 T [facility] Blood specimen (specimen) BLOOD SPECIMEN / Unknown 07/12/2015 4:07 EDT 07/12/2015 4:16 EDT Heike Plummer PA-C PACKAGES & DNA PROBE ORDERABLES Final Result [facility] [address] [place] [address] documented in this encounter Visit Diagnoses Diagnosis Kidney stone- Primary Calculus of kidney Kidney stone Calculus of kidney documented in this encounter Administered Medications Inactive Administered Medications - up to 3 most recent administrations Medication Order MAR Action Action Date Dose Rate Site albuterol inhaler 2 Puff 2 Puff, inhalation, EVERY 4 HOURS, First dose on 07/12/15 at 1600, Until Discontinued, Routine, On Unit Given 07/12/2015 22:38 EDT 2 Puffs ALPRAZolam (XANAX) tablet 0.5 mg 0.5 mg, oral, 2 TIMES DAILY PRN, Starting on 07/12/15 at 1538, Until 07/13/15 at 1129, Anxiety, Sleep, Routine, On Unit Given 07/12/2015 23:08 EDT 0.5 mg Given 07/12/2015 18:12 EDT 0.5 mg ciprofloxacin (CIPRO) IVPB 400 mg 400 mg, intravenous, Administer over 60 Minutes, NOW X1, 1 dose, On 07/12/15 at 0900, Controlled antibiotic: has ID approved? No: ED Patient. If admitted, further doses required ID approval, STAT Given 07/12/2015 9:24 EDT 400 mg cyanocobalamin tablet 1,000 mcg 1,000 mcg, oral, DAILY, First dose on 07/12/15 at 1600, Until Discontinued, Routine, On Unit Given 07/13/2015 8:21 EDT 1,000 mcg Given 07/12/2015 17:08 EDT 1,000 mcg docusate sodium (COLACE) capsule 100 mg 100 mg, oral, 2 TIMES DAILY, First dose on 07/12/15 at 2100, Until Discontinued, Routine, On Unit Given 07/13/2015 8:22 EDT 100 mg Given 07/12/2015 21:06 EDT 100 mg fentaNYL citrate (PF) 50 mcg/mL injection 50 mcg 50 mcg, intravenous, NOW X1, 1 dose, On 07/12/15 at 0545, STAT Given 07/12/2015 5:47 EDT 50 mcg ferrous gluconate (FERGON) tablet 324 mg 324 mg, oral, 2 TIMES DAILY WITH BREAKFAST & DINNER, First dose on 07/12/15 at 1700, Until Discontinued, Routine, On Unit Given 07/13/2015 8:21 EDT 324 mg Given 07/12/2015 17:08 EDT 324 mg fluticasone (FLOVENT) 110 mcg/actuation inhaler 1 Puff 1 Puff, inhalation, 2 TIMES DAILY, First dose on 07/12/15 at 2100, Until Discontinued, Routine, On Unit Given 07/13/2015 8:28 EDT 1 Puff Given 07/12/2015 22:39 EDT 1 Puff heparin injection 5,000 Units 5,000 Units, subcutaneous, EVERY 12 HOURS, First dose on 07/12/15 at 2100, Until Discontinued, Routine, On Unit Given 07/12/2015 21:34 EDT 5,000 Units HYDROmorphone (DILAUDID) tablet 2 mg 2 mg, oral, PRN, 2 doses, Starting on 07/12/15 at 1318, Until 07/12/15 at 1548, Pain, Routine, Recovery (only) Given 07/12/2015 13:49 EDT 2 mg HYDROmorphone (DILAUDID) tablet 2-4 mg 2-4 mg, oral, EVERY 3 HOURS PRN, Starting on 07/12/15 at 1538, Until 07/13/15 at 1129, Pain, Routine, On Unit Given 07/13/2015 6:13 EDT 4 mg Given 07/13/2015 3:19 EDT 4 mg Given 07/12/2015 23:07 EDT 4 mg HYDROmorphone (PF) (DILAUDID) 1 mg/mL injection 0.4 mg 0.4 mg, intravenous, EVERY 4 HOURS PRN, Starting on 07/12/15 at 1102, Until 07/13/15 at 1129, Pain, Routine Given 07/12/2015 11:22 EDT 0.4 mg HYDROmorphone (PF) (DILAUDID) 1 mg/mL injection 1 mg 1 mg, intravenous, NOW X1, 1 dose, On 07/12/15 at 0400, STAT Given 07/12/2015 4:17 EDT 1 mg HYDROmorphone (PF) (DILAUDID) 1 mg/mL injection 1 mg 1 mg, intravenous, EVERY 10 MINUTES PRN, 2 doses, Starting on 07/12/15 at 0626, Until 07/12/15 at 0915, Pain, STAT Given 07/12/2015 9:15 EDT 1 mg Given 07/12/2015 7:36 EDT 1 mg HYDROmorphone (PF) (DILAUDID) 1 mg/mL injection 2 mg 2 mg, intravenous, NOW X1, 1 dose, On 07/12/15 at 0500, STAT Given 07/12/2015 4:52 EDT 2 mg HYDROmorphone (PF) (DILAUDID) 1 mg/mL injection 2 mg 2 mg, intravenous, NOW X1, 1 dose, On 07/12/15 at 0630, STAT Given 07/12/2015 6:35 EDT 2 mg HYDROmorphone (PF) (DILAUDID) 1 mg/mL injection 1 dose, Starting on 07/12/15 at 0451, Until 07/12/15 at 0452 levothyroxine (SYNTHROID) tablet 25 mcg 25 mcg, oral, DAILY, First dose on 07/12/15 at 1645, Until Discontinued, On Unit Given 07/13/2015 6:13 EDT 25 mcg Given 07/12/2015 17:08 EDT 25 mcg magnesium hydroxide (MILK OF MAGNESIA) 400 mg/5 mL suspension 30 mL 30 mL, oral, AT BEDTIME, First dose on 07/12/15 at 2100, Until Discontinued, Routine, On Unit Given 07/12/2015 21:06 EDT 30 mL ondansetron (PF) (ZOFRAN) injection 2 mg 2 mg, intravenous, PRN, 1 dose, Starting on 07/12/15 at 1258, Until 07/12/15 at 1400, Nausea, Vomiting, Routine, Recovery (only) Given 07/12/2015 14:00 EDT 2 m g ondansetron (PF) (ZOFRAN) injection 2-4 mg 2-4 mg, intravenous, EVERY 8 HOURS PRN, Starting on 07/12/15 at 1538, Until 07/13/15 at 1129, Nausea, Routine, On Unit Given 07/13/2015 2:39 EDT 4 mg ondansetron (PF) (ZOFRAN) injection 4 mg 4 mg, intravenous, NOW X1, 1 dose, On Tue07/12/15 at 0400, STAT Given 07/12/2015 4:17 EDT 4 mg pantoprazole (PROTONIX) tablet 40 mg 40 mg, oral, DAILY, First dose on 07/12/15 at 1600, Until Discontinued, Routine, On Unit Given 07/13/2015 8:22 EDT 40 m g Given 07/12/2015 17:08 EDT 40 mg rifAXImin (XIFAXAN) tablet 550 mg 550 mg, oral, 2 TIMES DAILY, 20 doses, First dose on Tue07/12/15 at 2100, Last dose on Tue07/22/15 at 0900, Routine, On Unit Given 07/13/2015 8:22 EDT 550 mg Given 07/12/2015 21:06 EDT 550 mg sodium chloride 0.9 % (NS) infusion 100 mL/hr, intravenous, CONTINUOUS, Starting on 07/12/15 at 0930, Until Tue07/13/15 at 0725, STAT New Bag 07/12/2015 9:24 EDT 100 mL/hr 100 mL/hr sodium chloride 0.9 % (NS) infusion at 100 mL/hr, intravenous, CONTINUOUS, Starting on 07/12/15 at 1345, Until Tue07/13/15 at 0725, Routine, On Unit New Bag 07/12/2015 23:45 EDT 100 mL/ hr Rate Documented 07/12/2015 19:43 EDT 100 mL/hr New Bag 07/12/2015 13:33 EDT 100 mL/hr sodium chloride 0.9 % BOLUS 1,000 mL 1,000 mL, intravenous, NOW X1, 1 dose, On 07/12/15 at 0800, STAT New Bag 07/12/2015 7:59 EDT 1,000 mL sodium chloride 0.9 % BOLUS 500 mL 500 mL, intravenous, NOW X1, 1 dose, On 07/12/15 at 0430, STAT New Bag 07/12/2015 4:17 EDT 500 mL documented in this encounter Discontinued Medications Medication Sig Discontinue Reason Start Date End Da te oxyCODONE (ROXICODONE) 5 mg immediate release tablet 1 -2 tabs every 4 - 6 hours as needed 07/02/2015 07/13/2015 documented as of this encounter Active and Recently Administered Medications Times are shown in EDT. Scheduled Medication Order 07/11/2015 07/12/2015 07/13/2015 albuterol inhaler 2 Puff (CANCELED) 2 Puff, inhalation, EVERY 4 HOURS, First dose on 07/12/15 at 1600, Until Discontinued, Routine, On Unit 1600 (Not Given - Provider: Armida Panda, RT - Reason: Other - Comment: not documented from prior shift)2238 (Given - Provider: Armida Panda, RT) 0205 (Not Given - Provider: Armida Panda, RT - Reason: Other - Comment: prn) ciprofloxacin (CIPRO) IVPB 400 mg (COMPLETED) 400 mg, intravenous, Administer over 60 Minutes, NOW X1, 1 dose, On 07/12/15 at 0900, Controlled antibiotic: has ID approved? No: ED Patient. If admitted, further doses required ID approval, STAT 0924 (Given - Provider: Romy Pérez RN) cyanocobalamin tablet 1,000 mcg (CANCELED) 1,000 mcg, oral, DAILY, First dose on 07/12/15 at 1600, Until Discontinued, Routine, On Unit 1708 (Given - Provider: Lc Nichole RN) 0821 (Given - Provider: Lc Nichole RN) docusate sodium (COLACE) capsule 100 mg (CANCELED) 100 mg, oral, 2 TIMES DAILY, First dose on 07/12/15 at 2100, Until Discontinued, Routine, On Unit 2106 (Given - Provider: Flo Leone) 0822 (Given - Provider: Lc Nichole, KENN) fentaNYL citrate (PF) 50 mcg/mL injection 50 mcg (COMPLETED) 50 mcg, intravenous, NOW X1, 1 dose, On 07/12/15 at 0545, STAT 0547 (Given - Provider: Julissa Luther, KENN) ferrous gluconate (FERGON) tablet 324 mg (CANCELED) 324 mg, oral, 2 TIMES DAILY WITH BREAKFAST & DINNER, First dose on 07/12/15 at 1700, Until Discontinued, Routine, On Unit 1708 (Given - Provider: Lc Nichole RN) 0821 (Given - Provider: Lc Nichole, KENN) fluticasone (FLOVENT) 110 mcg/actuation inhaler 1 Puff (CANCELED) 1 Puff, inhalation, 2 TIMES DAILY, First dose on 07/12/15 at 2100, Until Discontinued, Routine, On Unit 2239 (Given - Provider: Armida Panda, RT) 0828 (Given - Provider: Lc Nichole RN) heparin injection 5,000 Units (CANCELED) 5,000 Units, subcutaneous, EVERY 12 HOURS, First dose on 07/12/15 at 2100, Until Discontinued, Routine, On Unit 2134 (Given - Provider: Flo Leone) HYDROmorphone (PF) (DILAUDID) 1 mg/mL injection 1 mg (COMPLETED) 1 mg, intravenous, NOW X1, 1 dose, On 07/12/15 at 0400, STAT 0417 (Given - Provider: Julissa Luther, KENN) HYDROmorphone (PF) (DILAUDID) 1 mg/mL injection 2 mg (COMPLETED) 2 mg, intravenous, NOW X1, 1 dose, On 07/12/15 at 0500, STAT 0452 (Given - Provider: Julissa Luther, KENN) HYDROmorphone (PF) (DILAUDID) 1 mg/mL injection 2 mg (COMPLETED) 2 mg, intravenous, NOW X1, 1 dose, On 07/12/15 at 0630, STAT 0635 (Given - Provider: Julissa Luther, KENN) levothyroxine (SYNTHROID) tablet 25 mcg (CANCELED) 25 mcg, oral, DAILY, First dose on 07/12/15 at 1645, Until Discontinued, On Unit 1708 (Given - Provider: Lc Nichole, KENN) 0613 (Given - Provider: Flo Leone) magnesium hydroxide (MILK OF MAGNESIA) 400 mg/5 mL suspension 30 mL (CANCELED) 30 mL, oral, AT BEDTIME, First dose on 07/12/15 at 2100, Until Discontinued, Routine, On Unit 2106 (Given - Provider: Flo Leone) ondansetron (PF) (ZOFRAN) injection 4 mg (COMPLETED) 4 mg, intravenous, NOW X1, 1 dose, On 07/12/15 at 0400, STAT 0417 (Given - Provider: Julissa Luther, KENN) pantoprazole (PROTONIX) tablet 40 mg (CANCELED) 40 mg, oral, DAILY, First dose on 07/12/15 at 1600, Until Discontinued, Routine, On Unit 1708 (Given - Provider: Lc Nichole RN) 0822 (Given - Provider: Lc Nichole, KENN) rifAXImin (XIFAXAN) tablet 550 mg (CANCELED) 550 mg, oral, 2 TIMES DAILY, 20 doses, First dose on 07/12/15 at 2100, Last dose on Tue07/22/15 at 0900, Routine, On Unit 2106 (Given - Provider: Flo Leone) 0822 (Given - Provider: Lc Nichole, KENN) sodium chloride 0.9 % BOLUS 1,000 mL (COMPLETED) 1,000 mL, intravenous, NOW X1, 1 dose, On 07/12/15 at 0800, STAT 0759 (New Bag - Provider: Romy Pérez, KENN)0907 (Completed - Provider: Romy Pérez, KENN) sodium chloride 0.9 % BOLUS 500 mL (COMPLETED) 500 mL, intravenous, NOW X1, 1 dose, On 07/12/15 at 0430, STAT 0417 (New Bag - Provider: Julissa Luther RN)0454 (Completed - Provider: Julissa Luther RN) Continuous Medication Order 07/11/2015 07/12/2015 07/13/2015 sodium chloride 0.9 % (NS) infusion (CANCELED) 100 mL/hr, intravenous, CONTINUOUS, Starting on 07/12/15 at 0930, Until 07/13/15 at 0725, STAT 0924 (New Bag - Provider: Romy Pérez, RN) sodium chloride 0.9 % (NS) infusion (CANCELED) at 100 mL/hr, intravenous, CONTINUOUS, Starting on 07/12/15 at 1345, Until 07/13/15 at 0725, Routine, On Unit 1333 (New Bag - Provider: Loraine Orr RN)1943 (Rate Documented - Provider: Flo Leone)2345 (New Bag - Provider: Flo Leone) 0744 (Completed - Provider: Lc Nichole RN) PRN Medication Order 07/11/2015 07/12/2015 07/13/2015 ALPRAZolam (XANAX) tablet 0.5 mg (CANCELED) 0.5 mg, oral, 2 TIMES DAILY PRN, Starting on 07/12/15 at 1538, Until 07/13/15 at 1129, Anxiety, Sleep, Routine, On Unit 1812 (Given - Provider: Lc Nichole RN)2308 (Given - Provider: Flo Leone) HYDROmorphone (DILAUDID) tablet 2 mg (CANCELED) 2 mg, oral, PRN, 2 doses, Starting on 07/12/15 at 1318, Until 07/12/15 at 1548, Pain, Routine, Recovery (only) 1349 (Given - Provider: Loraine Orr, KENN) HYDROmorphone (DILAUDID) tablet 2-4 mg (CANCELED) 2-4 mg, oral, EVERY 3 HOURS PRN, Starting on 07/12/15 at 1538, Until 07/13/15 at 1129, Pain, Routine, On Unit 1625 (Given - Provider: Lc Nichole RN)1940 (Given - Provider: Flo Leone)2307 (Given - Provider: Flo Leone) 0319 (Given - Provider: Flo Leone)0613 (Given - Provider: Flo Leone) HYDROmorphone (PF) (DILAUDID) 1 mg/mL injection 0.4 mg (CANCELED) 0.4 mg, intravenous, EVERY 4 HOURS PRN, Starting on 07/12/15 at 1102, Until 07/13/15 at 1129, Pain, Routine 1122 (Given - Provider: Benoit Upton) HYDROmorphone (PF) (DILAUDID) 1 mg/mL injection 1 mg (COMPLETED) 1 mg, intravenous, EVERY 10 MINUTES PRN, 2 doses, Starting on 07/12/15 at 0626, Until 07/12/15 at 0915, Pain, STAT 0736 (Given - Provider: Romy Pérez, RN)0915 (Given - Provider: Romy Pérez, KENN) ondansetron (PF) (ZOFRAN) injection 2 mg (COMPLETED) 2 mg, intravenous, PRN, 1 dose, Starting on 07/12/15 at 1258, Until 07/12/15 at 1400, Nausea, Vomiting, Routine, Recovery (only) 1400 (Given - Provider: Loraine Orr RN) ondansetron (PF) (ZOFRAN) injection 2-4 mg (CANCELED) 2-4 mg, intravenous, EVERY 8 HOURS PRN, Starting on 07/12/15 at 1538, Until 07/13/15 at 1129, Nausea, Routine, On Unit 0239 (Given - Provid er: Flo Leone) documented in this encounter Orders Medications Ordered That Luc ht Not Have Been Administered Count Last Ordered Date First Ordered Date albuterol inhaler 2 Puff 1 07/13/2015 atropine 0.1 mg/mL syringe 0.5 mg 1 015 diphenhydrAMINE (BENADRYL) i njection 6.25 mg 1 07/12/2015 fentaNYL citrate (PF) 50 mcg /mL injection 25-100 mcg 1 07/12/2015 lactated ringers (LR) infusion 1 07/12/2015 midazolam (PF) (VERSED) 1 mg /mL injection 1 mg 1 07/12/2015 nalOXone (NARCAN) injection 0.1-2 mg 1 06/22 nalOXone (NARCAN) injection 0.2 mg 1 2014 ondansetron (PF) (ZOFRAN) injection 4 mg 1 07/12/2015 oxyCODONE (ROXICODONE) immed iate release tablet 5 mg 1 07/12/2015 sodium chloride 0.9 % BOLUS 1,000 mL 2 06/22 Nursing Count Last Ordered Date First Orde red Date INSERT PERIPHERAL IV 1 07/12/2015 Admission Count Last Ordered Date First Orde red Date ED BED REQUEST 1 07/12/2015 STATUS: OUTPATIENT SURGICAL OP BED/SERVICES 1 07/12/2015 Transfer Count Last Ordered Date First Orde red Date NOTIFY PPS OF DISCHARGE COMPLETE 1 07/13/20 15 NOTIFY PPS PATIENT ARRIVAL IN PACU 1 2014 NOTIFY PPS PATIENT TRANSFERRED OUT OF PACU 1 07/12/2015 PPS NOTIFICATION OF PATIENT ARRIVAL ON UNIT 2 07/12/2015 UR PATIENT STATUS CHANGE 1 07/12/2015 Discharge Count Last Ordered Date First Orde red Date DISCHARGE PATIENT 1 07/13/2015 documented in this encounter Care Teams Net Development Manager Relationship Specialty Start Date End Date Emigdio Centeno MD [address] [place] [address] PCP - General 09/14/14 07/30/15 documented as of this encounter
--- OUTSIDE RECORDS SUMMARY | 2024-11-22 17:31 | XMS_ITS | Encounter Summary ---
Author Organization [facility] Address [address] [place] [address] Care Team Providers Care Nitrate Operator Name Role Phone Emigdio Centeno MD Primary Care Provider [phone] Reason for Visit * Reason Onset Date Comments Post-OP Follow Up 07/16/2015 Encounter Details Date Type Department Care Team (Late st Contact Info) Description 07/16/2015 Telephone [facility] Urology - [address] [id number] Jordan Dickens MD [address] [facility], [address] [place] [address] Post-OP Follow Up Social History Tobacco Use [...] 07/12/2015 15:00 EDT Duyen Nichole RN * Do you have serious difficulty walking or climbing stairs? (5 years old or older) Answer Date of Assessment Author No 07/12/2015 15:00 EDT Duyen Nichole RN * Do you have difficulty dressing or bathing? (5 years old or older) Answer Date of Assessment Author No 07/12/2015 15:00 EDT Duyen Nichole RN * Because of a physical, mental, [...] Duyen Nichole RN documented in this encounter Miscellaneous Notes * Telephone Encounter - Ebony Laguerre RN - 07/17/2015 1525 EDT Patient in ER being evaluated * Telephone Encounter - Maritza Michael - 07/16/2015 0920 EDT Reason for Call: Post-OP Follow Up Summary/Symptoms: Pt calling saying that both the whites of her eyes are completely blood shot thismorning. She had surgery yesterday 8.25. She's unsure if it's related to the procedure and she is concerned. Please call Maritza Michael 07/16/2015 9:20 documented in this encounter Plan of Treatment Upcoming Encounters Date Type Department Care Team (Late st Contact Info) Description 01/04/2025 13:00 EST Office Visit [facility] [place] [address] Gagandeep Rome MD [address] [facility], [facility] [address] [place] [id number] 02/11/2025 13:30 EDT Telemedicine [facility] Hematology & Oncology - [address] [phone] Dana Pdailla MD [address] [facility], [address] [place] [phone] documented as of this encounter Visit Diagnoses Not on filedocumented in this encounter Care Teams Nitrate Operator Relationship Specialty Start Date End Date Emigdio Centeno MD [address] [place] [address] PCP - General 09/14/14 07/30/15 documented as of this encounter
--- OUTSIDE RECORDS SUMMARY | 2024-11-22 17:31 | XMS_ITS | Encounter Summary ---
Author Organization [facility] Address [address] [place] [address] Care Team Providers Care Belt Maker Name Role Phone Emigdio Centeno MD Primary Care Provider [phone] Encounter Details Date Type Department Care Team (Late st Contact Info) Description 07/15/2015 13:31 EDT - 07/15/2015 19:45 EDT Hospital Encounter [facility] Perioperative Services- [address] [address] Jordan Dickens MD [address] [facility], [address] [place] [address] Kidney stone (Primary Dx); Pyelonephritis Discharge Disposition: Home or Self Care Social [...] Sign Reading Time Taken Comments Blood Pressure 112/53 07/15/2015 1930 EDT Pulse - - Temperature 36.8 ??C (98.2 ??F) 07/15/2015 1930 EDT Respiratory Rate 17 07/15/20151929 EDT Oxygen Saturation 95% 07/15/20151929 EDT Inhaled Oxygen Concentration - - Weight - - Height - - Body Mass Index - - documented in this encounter Functional Status * Are you deaf or do you have serious difficulty hearing? Answer Date of Assessment Author No 07/12/2015 15:00 Duyen Patrick RN * Are you blind or do you have serious difficulty seeing, even when wearing glasses? Answer Date of Assessment Author No 07/12/2015 15:00 Duyen Patrick RN * Do you have serious difficulty walking or climbing stairs? (5 years old or older) Answer Date of Assessment Author No 07/12/2015 15:00 Duyen Patrick RN * Do you have difficulty dressing [...] Author No 07/12/2015 15:00 Duyen Patrick RN documented as of this encounter Mental Status * Because of a physical, mental, or emotional condition, do you have serious difficulty concentrating, remembering, or making decisions? (5 years old or older) Answer Entry Date Author No 07/12/2015 15:00 Duyen Patrick RN documented in this encounter Discharge Instructions * Discharge Instructions* Scottie Mari MD - 07/15/2015 17:37 EDT Diet: Resume preoperative diet Activity: Activity as tolerated It is normal to have pain associated with the ureteral stent. This pain may be worse with activity or movement. Driving: No driving while taking narcotic pain medication Skin/Wound Care: Resume normal skin care. Bathing: No restrictions Pending Results: Stone analysis Symptoms to Call Your Doctor About: Burning with urination Chest pain Increased blood in urine Pain unrelieved by medication Shortness of breath Temperature greater than 101 degrees F Urinary retention Appointments: See Jordan Reyez MD in 1-2 weeks for stent removal. Please call for an appointment. [facility], . Future Appointments Date Time Provider Department Center 07/16/2015 10:30 Andrea Maddox MD Joe Card None 07/29/2015 9:30 Andrea Maddox MD Joe Card None 08/12/2015 10:45 Jesus Vaughan MD [...] daily for 7 days 14 Tab 0 07/15/2015 07/22/2015 cyanocobalamin 500 mcg tablet Take 1,000 mcg [...] Daily Max: 30 mg 12 Tab 0 07/15/2015 07/25/2015 pantoprazole (PROTONIX) 40 mg tablet Take 40 [...] Daily Max: 30 mg 12 Tab 0 07/15/2015 07/25/2015 oxybutynin (DITROPAN) 5 mg tablet Take 1 Tab by mouth 2 times daily as needed for Pain 8 Tab 0 07/15/2015 05/04/2016 oxyCODONE (ROXICODONE) 5 mg immediate release tablet Take 1 Tab by mouth every 4 hours Daily Max: 30 mg 12 Tab 0 07/15/2015 07/15/2015 phenazopyridine (PYRIDIUM) 200 mg tablet Take 1 Tab by mouth 3 times daily as needed for Pain 15 Tab 0 07/15/2015 07/29/2015 ciprofloxacin HCl (CIPRO) 500 mg tablet Take 1 Tab by mouth 2 times daily for 7 days 14 Tab 0 07/15/2015 07/22/2015 documented in this encounter Discharge Disposition Disposition Code Departure Means Destination Home or Self Care documented in this encounter Progress Notes * Katherin Rogers - 07/16/2015 1902 EDT Anesthesia update note: Received call from patient today stating she felt like her eyes were burning and the whites of her eyes were red and glassy. She wondered if it was a reaction to the anesthesia. Attempted to call patient. Voice mail after several rings that did not identify the patient or phone number. No message left. Will attempt to call patient again tomorrow. Katherin Rogers MD 07/16/2015 19:03 Anesthesia update note: Attempted to call patient. Phone answered. Patient out walking her dog. I will call the patient back later today. Katherin Rogers MD 07/17/2015 7:38 Anesthesia update note: Called patient states her eyes are red and feel heavy. No itching no pain and no change in vision. States she is more short of breath with walking. No chest pain. Does improve with albuterol use. Newmedications started 07/12/15 include oxybutynin and flomax. Started pyridium today (however, after eye redness and feeling short of breath). No symptoms of eye reddness or shortness of breath until after procedure 07/15/15. Doubt reaction to anesthesia medications this far out from surgery. Recommended to patient that shecall her primary care doctors office, Dr. Rai to be seen today for vitals signs and physical exam. If she is unable to get an appointment she should go to [facility] urgent care. If her breathing symptoms worsen she should go immediately to the emergency department. Patient understands and agrees with plan. Katherin Rogers MD 07/17/2015 12:27 oxybutin and flomax new pyridium documented in this encounter H&P Notes * Scottie Mari MD - 07/15/2015 8628 EDT The preoperative history and physical which was performed within 30 days of this procedure has beenreviewed and the clinically appropriate elements of the physical examination have been repeated. There are no changes to the documented history and physical or if so such changes are documented below. Please see H&P 07/12/2015 9:23 Scottie Mari MD 07/15/2015 16:10 Cosigned by Jordan Dickens MD at 07/22/2015 0:56 EDT documented in this encounter OR Notes * OR Surgeon - Jordan Dickens MD - 07/18/2015 1213 EDT OPERATIVE REPORT SERVICE DATE: 07/15/2015 PREOPERATIVE DIAGNOSIS: Left distal ureteral stone. POSTOPERATIVE DIAGNOSIS: Left distal ureteral stone. PROCEDURE: Cystoscopy-left JJ stent removal-left retrograde pyelography with intraoperative interpretation-left ureteroscopic stone extraction with holmium laser lithotripsy-left JJ stent insertion. INDICATIONS: This 54-year-old female was diagnosed with obstructive urolithiasis several days priorrequiring stenting given her infected state. She was discharged home without complication and stabilized adequately. Options for stone removal were discussed and it was felt that ureteroscopy would be warranted. Informed consent was obtained after discussion of potential complications. SURGEON: Jordan Dickens MD SENIOR LOAN OFFICER: Scottie Mari MD ANESTHESIA: General. NARRATIVE: Under general anesthesia, the patient was prepped and draped in lithotomy position. Using a 21-Canadian cystoscope, the urethra was visualized and found to be normal. Bladder mucosa was normal, as were the ureteral orifices bilaterally. Left orifice was noted to have a stent exiting it andit was carefully grasped and brought to the level of the urethral meatus. A 0.038 guidewire was then placed to allow for then placement of a semirigid ureteroscope in the distal ureter. Using a 365 micron holmium laser fiber, the stone was carefully fragmented to very small fragments. Some were removed using a basket. These were sent for stone analysis. At the termination of the procedure, retrograde pyelography was performed with 10 mL of Omnipaque and demonstrated grade 4 hydronephrosis with no filling defects and normal anatomy otherwise. Interpretation of all images was made intraoperatively with hard copies taken and no radiology required. Using the existing 0.038 guidewire after the ureteroscope was removed, a 6-Canadian x 22 to 30 cm JJ stent was placed with good coiling ensured at the level of the left renal pelvis as well as bladder after wire removal. No tail was left on the stent. The patient will follow up in 10 days' time for stent removal. Should she have any difficulties,she knows to contact us. ESTIMATED BLOOD LOSS: Less than 50 mL. The stone fragments again were sent to pathology for examination. Unless otherwise noted, there were no complications, no blood loss, no cultures obtained, no specimens removed, and no drains retained. Jordan Dickens MD 07 58 AM / Jordan Dickens MD ln Confirmation: [id number] Dictation ID: [id number] documented in this encounter Miscellaneous Notes * Brief Op Note - Scottie Mari MD - 07/15/2015 1610 EDT BRIEF OP NOTE Surgeon: Jordan Dickens MD Behavioral Intervention Specialist: Scottie Mari MD; Al Ray MS4 Pre-op diagnosis: L distal ureteral calculus Post-op diagnosis: same Procedure: cystoscopy, L ureteroscopy, laser lithotripsy, L ureteral stent exchange Anesth: General Findings: L distal ureteral stone, lasered, stent exchanged EBL: minimal IVF: LR UOP: nm Urine not measured during case Specimen: L ureteral stone Cultures: none Foreign Material Retained: L ureteral stent Complications: none Dispo: PACU in Good condition. Scottie Mari MD 07/15/2015 16:11 Cosigned by Jodran Dickens MD at 07/22/2015 0:55 EDT documented in this encounter Plan of Treatment Upcoming Encounters Date Type Department Care Team (Late st Contact Info) Description 01/04/2025 13:00 [place] [address] Gagandeep Rome MD [address] [facility], [address] [place] [phone] 02/11/2025 13:30 EDT Telemedicine [facility] Hematology & Oncology - [facility] [address] [place], [place] [phone] Dana Padilla MD [address] [facility], [address] [place] [address] documented as of this encounter Procedures Procedure Name Priority Date/Time Associated Diagnosis Comments IMPLANT RECORD - SCANNED 07/18/2015 9:07 EDT ECG REPORT - SCANNED 07/18/2015 9:07 EDT RETROGRADE UROGRAM Routine 07/15/2015 17 :25 EDT KIDNEY STONE ANALYSIS Routine 07/15/2015 17:09 EDT documented in this encounter Results * IMPLANT RECORD - SCANNED (07/18/2015 9:07 EDT) 07/18/2015 9:07 EDT us Scan 2 Claims Adjustor PROCEDURE/MINOR SURGICAL OR DERABLES Final Result * ECG REPORT - SCANNED (07/18/2015 9:07 EDT) 07/18/2015 9:07 EDT us Scan 2 Claims Adjustor PROCEDURE/MINOR SURGICAL OR DERABLES Final Result * RETROGRADE UROGRAM (07/15/2015 17:25 EDT) Anatomical Region Laterality Modality Other 07/15/2015 17:2 5 EDT Narrative 07/15/2015 17:25 EDT Non Reportable Exam Procedure Note WAGE AND SALARY ADMINISTRATOR, IMAGING - 07/15/2015 Non Reportable Exam us Jordan Dickens MD IMG FLUOROSCOPY ORDERABLE S Final Result * KIDNEY STONE ANALYSIS (07/15/2015 17:09 EDT) Source Kidney 07/15/2015 19:03 EDT [facility] 1st Constituent 50% Calcium oxalate monohydrate 07/17/2015 8:28 EDT [facility] 2nd Constituent 40% Calcium oxalate dihydrate 07/17/2015 8:28 EDT [facility] 3rd Constituent 10% Calcium phosphate (apatite) 07/17/2015 8:28 EDT [facility] Comment: Performed by: [facility]: [address], [address] [place], [place] [address], Lab Dir: Chance Godinez III, MD TOPOGRAPHY UNKNOWN / Unknown 07/15/2015 17:09 EDT 07/15/2015 19:02 EDT us Jordan Dickens MD GEN LAB UNIT COLLECT DEMI CARDENAS Final Result [facility] [address] [place] [address] documented in this encounter Visit Diagnoses Diagnosis Kidney stone- Primary Calculus of kidney Pyelonephritis Pyelonephritis, unspecified documented in this encounter Administered Medications Inactive Administered Medications - up to 3 most recent administrations Medication Order MAR Action Action Date Dose Rate Site ceFAZolin (ANCEF) syringe 2 g 2 g, intravenous, Administer over 10 Minutes, PRE-OP ONCE, 1 dose, On Tue07/15/15 at 1630, Routine Given by Other 07/15/2015 16:51 EDT 2 g diphenhydrAMINE (BENADRYL) injection 6.25 mg 6.25 mg, intravenous, PRN, 2 doses, Starting on Tue07/15/15 at 1726, Until Tue07/15/15 at 2159, nausea, Routine, Recovery (only) Given 07/15/2015 17:43 EDT 6.25 mg fentaNYL citrate (PF) 50 mcg/mL injection 25-100 mcg 25-100 mcg, intravenous, EVERY 5 MIN PRN, Starting on 8/25/15 at 1726, Until Tue 25/15 at 2159, Pain, Routine, Recovery (only) Given 07/15/2015 17:43 EDT 50 mcg lactated ringers (LR) infusion at 25 mL/hr, intravenous, CONTINUOUS, Starting on Tue07/15/15 at 1415, Until Tue07/15/15 at 2159, Routine, Pre Op Day of Surgery New Bag 07/15/2015 14:15 EDT 25 mL/hr ondansetron (PF) (ZOFRAN) injection 2 mg 2 mg, intravenous, PRN, 1 dose, Starting on Tue07/15/15 at 1726, Until Tue07/15/15 at 1743, Nausea, Vomiting, Routine, Recovery (only) Given 07/15/2015 17:43 EDT 2 mg oxyCODONE (ROXICODONE) immediate release tablet 5 mg 5 mg, oral, PRN, 2 doses, Starting on Tue07/15/15 at 1726, Until Tue07/15/15 at 2159, Pain, Routine, Recovery (only) Given 07/15/2015 18:39 EDT 10 mg documented in this encounter Discontinued Medications Medication Sig Discontinue Reason Start Date End Da te oxyCODONE (ROXICODONE) 5 mg immediate release tablet Take 1 Tab by mouth every 4 hours Daily Max: 30 mg 07/15/2015 07/15/2015 oxyCODONE (ROXICODONE) 5 mg immediate release tablet 1 -2 tabs every 4 - 6 hours as needed 07/13/2015 07/15/2015 ciprofloxacin HCl (CIPRO) 500 mg tablet Take 1 Tab by mouth every 12 hours for 10 days 07/13/2015 07/15/2015 oxybutynin (DITROPAN) 5 mg tablet Take 1 Tab by mouth 3 times daily as needed for up to 15 days for Pain 07/13/2015 07/15/2015 documented as of this encounter Active and Recently Administered Medications Times are shown in EDT. Scheduled Medication Order 07/13/2015 07/14/2015 07/15/2015 ceFAZolin (ANCEF) syringe 2 g (COMPLETED) 2 g, intravenous, Administer over 10 Minutes, PRE-OP ONCE, 1 dose, On Tue07/15/15 at 1630, Routine 1651 (Given by Other - Provider: Lc Vasquez RN) Continuous Medication Order 07/13/2015 07/14/2015 07/15/2015 lactated ringers (LR) infusion (CANCELED) at 25 mL/hr, intravenous, CONTINUOUS, Starting on Tue07/15/15 at 1415, Until Tue07/15/15 at 2159, Routine, Pre Op Day of Surgery 1415 (New Bag - Prov ider: Prema Gandara RN)1735 (Completed - Provider: Kelly Betancourt RN) PRN Medication Order 07/13/2015 07/14/2015 07/15/2015 diphenhydrAMINE (BENADRYL) injection 6.25 mg (CANCELED) 6.25 mg, intravenous, PRN, 2 doses, Starting on Tue07/15/15 at 1726, Until Tue07/15/15 at 2159, nausea, Routine, Recovery (only) 1743 (Given - Provid er: Kelly Betancourt RN) fentaNYL citrate (PF) 50 mcg/mL injection 25-100 mcg (CANCELED) 25-100 mcg, intravenous, EVERY 5 MIN PRN, Starting on Tue07/15/15 at 1726, Until Tue07/15/15 at 2159, Pain, Routine, Recovery (only) 1743 (Given - Provid er: Kelly Betancourt RN) ondansetron (PF) (ZOFRAN) injection 2 mg (COMPLETED) 2 mg, intravenous, PRN, 1 dose, Starting on Tue07/15/15 at 1726, Until Tue07/15/15 at 1743, Nausea, Vomiting, Routine, Recovery (only) 1743 (Given - Provid er: Kelly Betancourt RN) oxyCODONE (ROXICODONE) immediate release tablet 5 mg (CANCELED) 5 mg, oral, PRN, 2 doses, Starting on Tue07/15/15 at 1726, Until Tue07/15/15 at 2159, Pain, Routine, Recovery (only) 1839 (Given - Provid er: Kelly Betancourt RN) documented in this encounter Orders Medications Ordered That Luc ht Not Have Been Administered Count Last Ordered Date First Ordered Date atropine 0.1 mg/mL syringe 0.5 mg 1 015 lactated ringers (LR) infusion 1 07/15/2015 nalOXone (NARCAN) injection 0.2 mg 1 2014 Transfer Count Last Ordered Date First Orde red Date NOTIFY PPS PACU PATIENT DISCHARGE 1 015 NOTIFY PPS PATIENT ARRIVAL IN PACU 1 2014 Discharge Count Last Ordered Date First Orde red Date DISCHARGE PATIENT 1 07/15/2015 documented in this encounter Care Teams Belt Maker Relationship Specialty Start Date End Date Emigdio Centeno MD [address] [place] [address] PCP - General 09/14/14 07/30/15 documented as of this encounter
--- OUTSIDE RECORDS SUMMARY | 2024-11-22 17:31 | XMS_ITS | Encounter Summary ---
Author Organization [facility] Address [address] [place] [address] Care Team Providers Care Moth Proofer Name Role Phone Emigdio Centeno MD Primary Care Provider [phone] Jayden Tijerina MD Primary Care Provider [phone] None, Provider Primary Care Provider UnavailAlli Morton MD Primary Care Provider None, Provider Primary Care Provider Unavailabl e Naty Evans MD Unavailable Jaimie Evans MD Primary Care Provider [phone] Hardik Viramontes MD Primary Care Provider [phone] Naty Evans MD Unavailable Segundo Weems MD Primary Care Provider [phone] Aj Issa MD Primary Care Provider + Alma Farfan MD Primary Care Provider [phone] Emigdio Veronica MD Primary Care Provider + Starr Paige MD Unavailable [phone] Dana Padilla MD Unavailable Izabella Snowden [facility] Unavailable [phone] None, Provider Primary Care Provider Gabriel Wei Primary Care Provider Mirna Guerrero Primary Care Provider + Encounter Details Date Type Department Care Team (Late st Contact Info) Description 06/25/[address] [facility] Case Management - [phone] [place] [address] DEPARTMENT [phone] Katherin Hendrix Social History Tobacco Use Types Packs/Day Years [...] on file documented as of this encounter Miscellaneous Notes * Telephone Encounter - Katherin Hendrix - 06/25/2015 1133 EDT Rec'd referral from ENT to assist pt with resources and housing. Pt has left a unhealthy marriage and now stays with son. Has a time limit on ability to stay with him. Has tried to access some services but was turned away based on having a limited income (Social Security) and having a service dog. Provided pt with resources on housing options - specifically accessing case management support in the community for housing, food resources, crisis services, [facility] hotline and various inexpensive lodging options. Pt also has list of out of area shelters to see if they would accept her with a service dog. Pt plans to follow up again on Tuesday at [facility]. Pt does not have a working phone at this time that she is comfortable with me calling so she has mycontact information and will be calling me on Tuesday to let me know the outcome of her efforts. Katherin Hendrix # [id number] documented in this encounter Plan of Treatment Upcoming Encounters Date Type Department Care Team (Late st Contact Info) Description 01/04/2025 13:[address] [facility] Ophthalmology - [address] [phone] Gagandeep Rome MD [address] [place] [address], [facility] [address] [place] [phone] 02/11/2025 13:30 EDT Telemedicine [facility] Hematology & Oncology [address] [phone] Dana Padilla MD [address] [place] [address], [facility] [address] [place] [address] documented as of this encounter [...] documented as of this encounter Care Teams Moth Proofer Relationship Specialty Start Date End Date Emigdio Centeno MD [address] [place] [address] PCP - General 09/14/14 07/30/15 Jayden Tijerina MD [address] [place] [address] PCP - General 07/31/15 01/02/17 None, Provider PCP - General 01/03/17 02/23/17 Alli Lew MD [address] [place] [address] [place] [phone] PCP - General 02/24/17 03/24/17 None, Provider PCP - General 03/25/17 09/08/17 Naty Evans MD [address] [place] [address] [place] [phone] PCP - Alternate 09/09/17 09/19/17 Jaimie Evans MD [address] [place] [address] PCP - General 09/20/17 09/29/17 Hardik Viramontes MD [address] [phone] PCP - General 09/30/17 02/07/18 Naty Evans MD [address] [place] [address] [place] [address] PCP - Alternate 09/30/17 04/11/19 Segundo Weems MD [address] [place], [place] [phone] PCP - General 02/08/18 07/28/18 Aj Issa MD [address] [place] [phone] PCP - General 07/29/18 03/13/19 Alma Farfan MD [address] [place] [phone] PCP - General 03/14/19 05/21/20 Emigdio Veronica MD [address] [place] [phone] PCP - General Internal Medicine - Primary Care 05/22/20 02/21/24 None, Provider PCP - General 02/24/24 03/18/24 Gabriel Gandara PA 1 [facility], [address] [place] [address] PCP - General 03/19/24 09/11/24 Mirna Guerrero PA [address] [place] [address] PCP - General 09/12/24 Starr Paige MD [address] [facility] [place] [address] Hematology 10/08/21 06/09/22 Dana Padilla MD 111 [facility], [address] [place] [address] Hematology 01/13/22 06/09/22 zIabella Snowden, [facility], [address] [place] [phone] Clinical Rehabilitation Coordinator 02/21/23 05/03/24 documented as of this encounter
--- OUTSIDE RECORDS SUMMARY | 2024-11-22 17:31 | XMS_ITS | Encounter Summary ---
Author Organization [facility] Address [address] [place] [address] Care Team Providers Care Cosmetic Dentist Name Role Phone Emigdio Centeno MD Primary Care Provider [phone] Encounter Details Date Type Department Care Team (Late st Contact Info) Description 06/18/2015 Documentation Visit [facility] [address] [place] [address] Soni Leyva MD [address] [place] [address] Social History Tobacco Use Types Packs/Day Years [...] on file documented as of this encounter Procedure Notes * Soni Leyva MD - 06/18/2015 1217 EDT Images from the original note were not included. Procedure: Procedures Fine Needle Aspiration Title of Procedure: Ultrasound-Guided Fine Needle Aspiration Date Performed: 06/18/2015 Performed By: Soni Leyva MD, Jesus Vaughan MD Indications and/or Provisional Diagnosis: left Level II neck mass(es) Consent: Written consent was obtained from the patient following discussion of the risks, benefits,and alternatives. Local anesthesia: Lidocaine 1% with epinephrine Unless otherwise noted, there were no complications, no blood loss, cultures obtained, or drains retained. Time Out: A time-out was completed prior to the procedure verifying correct patient, procedure, site, positioning, and special equipment if applicable. Procedure Technique/Description of Procedure: Tara Yun was seen and examined. A 2.4 centimeter firm, tender, mobile mass is noted on left neck, zone 2. The skin was thoroughly cleansed with alcohol. The Fine Needle Aspiration was performed using 25 gauge needles with 2 passes performed with the needle guided into the mass using ultrasound localization using the 12.5 MHz probe. Post Procedure Diagnosis and Preliminary Findings: Same as pre-procedure diagnosis. Initial pass showed thin, clear fluid. Subsequent pass showed cloudy, pink tinged fluid. Specimens: Specimens were sent to the lab air dried, alcohol fixed and in cytolyte and for culture Soni Leyva MD Otolaryngology PGY-4 06/18/2015, 12:18 #[id number] . documented in this encounter Plan of Treatment Upcoming Encounters Date Type Department Care Team (Late st Contact Info) Description 01/04/2025 13:00 EST Office Visit [facility] Ophthalmology - [address] [phone] Gagandeep Rome MD [address] [place] [address], [facility] [address] [place] [phone] 02/11/2025 13:30 EDT Telemedicine [facility] Hematology & Oncology [address] [phone] Dana Padilla MD [address] [place] [address], [address] [place] [phone] documented as of this encounter Visit Diagnoses Not on filedocumented in this encounter Care Teams Cosmetic Dentist Relationship Specialty Start Date End Date Emigdio Centeno MD [address] [place] [address] PCP - General 09/14/14 07/30/15 documented as of this encounter
--- OUTSIDE RECORDS SUMMARY | 2024-11-22 17:31 | XMS_ITS | Encounter Summary ---
Author Organization [facility] Address [address] [place] [address] Care Team Providers Care Green Lumber Grader Name Role Phone Emigdio Centeno MD Primary Care Provider [phone] Encounter Details Date Type Department Care Team (Late st Contact Info) Description 06/24/2015 Orders Only [address] [address] Cadence Liz MD [address] [place] [address], Level 4 [place] [address] Social History Tobacco Use Types [...] on file documented as of this encounter Ordered Prescriptions Prescription Sig Dispense Quantity Refills Last Filled Start Date End Date oxyCODONE (ROXICODONE) 5 mg immediate release tablet 1 -2 tabs every 4 - 6 hours as needed 40 Tab 0 06/24/2015 07/02/2015 documented in this encounter Plan of Treatment Upcoming Encounters Date Type Department Care Team (Late st Contact Info) Description 01/04/2025 13:00 EST Office Visit [facility] Ophthalmology - [address] [phone] Gagandeep Rome MD [address] [place] [address], [facility] 5 [place] [phone] 02/11/2025 13:30 EDT Telemedicine [facility] Hematology & Oncology - [address] [phone] Dana Padilla MD [address] [place] [address], [facility] 2 [place] [phone] documented as of this encounter Visit Diagnoses Not on filedocumented in this encounter Discontinued Medications Medication Sig Discontinue Reason Start Date End Da te oxyCODONE (ROXICODONE) 5 mg immediate release tablet Take 1 Tab by mouth every 4 hours as needed for Pain Daily Max: 30 mg 06/17/2015 06/24/2015 documented as of this encounter Care Teams Green Lumber Grader Relationship Specialty Start Date End Date Emigdio Centeno MD [address] [place] [address] PCP - General 09/14/14 07/30/15 documented as of this encounter
--- OUTSIDE RECORDS SUMMARY | 2024-11-22 17:31 | XMS_ITS | Encounter Summary ---
Author Organization [facility] Address [address] [place] [address] Care Team Providers Care Senior Bi Developer Name Role Phone Emigdio Centeno MD Primary Care Provider [phone] Reason for Visit * Reason Onset Date Comments Other 06/20/2015 pain at biopsy s ite Encounter Details Date Type Department Care Team (Late st Contact Info) Description 06/20/[address] [facility] [address] [place], [place] [phone] Cadence Liz MD 111 [facility], Level 4 [place] [address] Other (pain at biopsy site) Social History Tobacco Use Types Packs/Day Years [...] Telephone Encounter - Allison Farley RN - 06/20/2015 [address] Leyva who will not refill oxycodone. Advised pt to use ice periodically throughout the day. She states that she plans on calling her old PCP to discuss possibly taking a low dose of tylenol. Pt verbalized understanding. No barriers to learning. * Telephone Encounter - Allison Farley RN - 06/20/2015 0820 EDT Spoke with pt who is reported persistent pain at FNA biopsy site. She states that the swelling is the same and the hardness has moved lower and more midline on her neck. She was given a prescription for oxycodone #15 which pt states she did not fill until after her biopsy on 06/18/15. She is requesting a refill as she is out and can't sleep. She states that she has been taking it as prescribed 1 tab every 4 hours. If this was the case then she would not be out untilthis evening at the every earliest. Advised pt that FNA's do not typically warrant the need for narcotic pain medication and she has gone through a lot of narcotics in a very short period of time. Pt then states that she is new to the area and doesn't have a local PCP. Old PCP is in [place], [place]. Again stated that narcotic pain medications are almost never prescribed for this procedure but Iwill give message to ENT providers and call her back later today. Pathology and culture results arefinal and will have MD review. Per [facility]- pt had been receiving monthly prescriptions of oxycodone 10 mg every month prescribed by Dr. Emigdio Centeno in [place], [place]. * Telephone Encounter - Sowmya Benson - 06/20/2015 0805 EDT Patient had a biopsy in clinic and states that it's painful around the site and wants to know if it's normal. Patient is also out of pain medication and would like a refill. Patient would like to talk with a nurse. documented in this encounter Plan of Treatment Upcoming Encounters Date Type Department Care Team (Late st Contact Info) Description 01/04/2025 13:00 EST Office Visit [facility] Ophthalmology - [address] [phone] Gagandeep Rome MD [address] [place] [address], [facility] 5 [place] [phone] 02/11/2025 13:30 EDT Telemedicine [facility] Hematology & Oncology - [address] [phone] Dana Padilla MD [address] [place] [address], [facility] 2 [place] [phone] documented as of this encounter Visit Diagnoses Not on filedocumented in this encounter Care Teams Senior Bi Developer Relationship Specialty Start Date End Date Emigdio Centeno MD [address] [place] [address] PCP - General 09/14/14 07/30/15 documented as of this encounter
--- OUTSIDE RECORDS SUMMARY | 2024-11-22 17:31 | XMS_ITS | Encounter Summary ---
Author Organization [facility] Address [address] [place] [address] Care Team Providers Care Packing Machine Pilot Can Router Name Role Phone Emigdio Centeno MD Primary Care Provider [phone] Encounter Details Date Type Department Care Team (Late st Contact Info) Description 07/09/2015 Results Only Imaging [facility] [phone] Jayden Tijerina MD [address] [place] [phone] Social History Tobacco Use Types Packs/Day Years [...] on file documented as of this encounter Plan of Treatment Upcoming Encounters Date Type Department Care Team (Late st Contact Info) Description 01/04/2025 13:00 EST Office Visit [facility] Ophthalmology - [place] [address] [place], [place] [phone] Gagandeep Rome MD 111 [facility], Level 5 [place] [address] 02/11/2025 13:30 EDT Telemedicine [facility] Hematology & Oncology - [address] [phone] Dana Padilla MD [address] [facility], Level 2 [place] [phone] documented as of this encounter Visit Diagnoses Not on filedocumented in this encounter Care Teams Packing Machine Pilot Can Router Relationship Specialty Start Date End Date Emigdio Centeno MD [address] [place] [address] PCP - General 09/14/14 07/30/15 documented as of this encounter
--- OUTSIDE RECORDS SUMMARY | 2024-11-22 17:31 | XMS_ITS | Encounter Summary ---
Author Organization [facility] Address [address] [place] [address] Care Team Providers Care Finance Lecturer Name Role Phone Emigdio Centeno MD Primary Care Provider [phone] Reason for Visit * Reason Comments Follow-up Encounter Details Date Type Department Care Team (Late st Contact Info) Description 07/02/2015 15:30 EDT Office Visit [facility]- [address] [phone] Jesus Vaughan MD [address] [place] [address], Level 4 [place] [address] Swelling, mass, or lump in head and neck (Primary Dx); Neck pain on left side Social History Tobacco Use Types Packs/Day Years [...] 6 hours as needed 20 Tab 0 07/02/2015 07/13/2015 documented in this encounter Progress Notes * Jesus Vaughan MD - 07/03/2015 0715 EDT Images from the original note were not included. Progress Note Division of Otolaryngology, Head and Neck Surgery Date of Service: 07/02/2015 Provider: Jesus Vaughan MD CHIEF COMPLAINT: Chief Complaint Patient presents with ??? Follow-up HISTORY OF PRESENT ILLNESS: Tara Yun is a 54 y.o. year old female who comes in today to follow up on an infected left neck mass. We did an aspirate of this mass that demonstrated: Pathology Report: CYTOLOGIC DIAGNOSIS: NECK, LEFT, LEVEL II MASS, FINE NEEDLE ASPIRATION: - Atypical squamous cells in a background of acute and chronic inflammation and cystic debris. See comment. COMMENT: The specimen is composed of nucleated [...] been reviewed at the intradepartmental consultation conference. This was acutely infected. She has been on antibiotics and feels better, but the area is still painful, especially when she sleeps. The mass is smaller, she will finish her antibiotics in the next few days. She comes in today to discuss surgical excision. She had a negative flexible exam by Drs. Liz and Autumn when she first presented. Department of Otolaryngology PHYSICAL EXAMINATION CONSTITUTIONAL: APPEARANCE: The patient appears alert, cooperative, and comfortable. ABILITY TO COMMUNICATE / VOICE: Normal for age MOUTH AND THROAT: LIPS, TEETH & GUMS: partially edentulous ORAL CAVITY & OROPHARYNX: no lesions noted, tongue base and tonsil area OK. HYPOPHARYNX: Unable to visualize because of macroglossia LARYNX: Unable to visualize because of macroglossia NECK: GENERAL: high level 2a mass on the left is tender, no overlying skin change THYROID: Normal LYMPHATIC: CERVICAL LYMPH NODES: no other mass or adenopathy noted Procedure Note (Ultrasound): Indications:left neck mass Using the Razo i22 ultrasound unit, biplanar ultrasound of the neck was performed on Tara Yun using the 12.5 mHz probe. Findings: The level 2a mass on the left is hypoechoic with some hyperlucencies within it. It measures 1.6 x 2.4 x 2.8 cm Cervical lymph nodes: There is no pathologic adenopathy along the jugular lymph nodes bilaterally. There are several very reactive-appearing nodes just below this mass in levels 2 & 3. Assessment: Left neck mass, consistent with infected branchial cleft cyst, smaller than prior study(CT May 2015) Jesus Vaughan MD ASSESMENT: Encounter Diagnoses Name Primary? Swelling, mass, or lump in head and neck Yes ??? Neck pain on left side While this could possibly be a metastatic squamous cell carcinoma, the infection history and adjacent reactive nodes strongly support that this is a branchial cleft cyst. We need to take it out, however and that will confirm the diagnosis. I would like to wait another month for the acute inflammation to subside prior to surgery. She requests some additional pain medication today. I discussed the risks of neck mass/branchial cleft cyst excision with Tara Yun during today's visit. These risks include, but are not limited to: temporary or permanent weakness of nerves including the accessory or hypoglossal incisional problems such as hematoma, infection, or poor cosmeticscar, numbness or weakness of the tongue or the need for further surgery. If the pathology suggestsother etiology of this mass (e.g. Malignancy) she will require further treatment. To the best of myknowledge she understands these risks and has had the opportunity to ask questions and have them answered to her satisfaction After discussion of the risks, the patient gave written consent for this procedure. PLAN: Tara was seen today for follow-up. Diagnoses and associated orders for this visit: Swelling, mass, or lump in head and neck Neck pain on left side Other Orders - oxyCODONE (ROXICODONE) 5 mg immediate release tablet; 1 -2 tabs every 4 - 6 hours as needed Return for surgery. Jesus Vaughan MD documented in this encounter Procedure Notes * Jesus Vaughan MD - 07/03/2015 0721 EDTProcedure(s): RAD US NECK/THYROID Pre-Procedure Diagnose(s): Swelling, mass, or lump in head and neck Post-Procedure Diagnose(s): Swelling, mass, or lump in head and neck Images from the original note were not included. Procedure Note (Ultrasound): Indications:left neck mass Using the Razo i22 ultrasound unit, biplanar ultrasound of the neck was performed on [facility] E Yun using the 12.5 mHz probe. Findings: The level 2a mass on the left is hypoechoic with some hyperlucencies within it. It measures 1.6 x 2.4 x 2.8 cm Cervical lymph nodes: There is no pathologic adenopathy along the jugular lymph nodes bilaterally. There are several very reactive-appearing nodes just below this mass in levels 2 & 3. Assessment: Left neck mass, consistent with infected branchial cleft cyst. Jesus Vaughan MD documented in this encounter Plan of Treatment Upcoming Encounters Date Type Department Care Team (Late st Contact Info) Description 01/04/2025 13:00 EST Office Visit [facility] Ophthalmology - [address] [phone] Gagandeep Rome MD [address] [place] [address], [facility] 5 [place] [phone] 02/11/2025 13:30 EDT Telemedicine [facility] Hematology & Oncology - [address] 513[address] Dana Padilla MD [address] [place] [address], [facility] 2 [place] [phone] documented as of this encounter Visit Diagnoses Diagnosis Swelling, mass, or lump in head and neck- Primary Neck pain on left side Cervicalgia documented in this encounter Discontinued Medications Medication Sig Discontinue Reason Start Date End Da te oxyCODONE (ROXICODONE) 5 mg immediate release tablet 1 -2 tabs every 4 - 6 hours as needed Reorder 06/24/2015 07/02/2015 documented as of this encounter Care Teams Finance Lecturer Relationship Specialty Start Date End Date Emigdio Centeno MD [address] [place] [address] PCP - General 09/14/14 07/30/15 documented as of this encounter
--- OUTSIDE RECORDS SUMMARY | 2024-11-22 17:31 | XMS_ITS | Encounter Summary ---
Author Organization [facility] Address [address] [place] [address] Care Team Providers Care Motor Boss Name Role Phone Emigdio Centeno MD Primary Care Provider [phone] Reason for Visit * Reason Onset Date Comments Appointment Related 07/14/2015 Encounter Details Date Type Department Care Team (Late st Contact Info) Description 07/14/2015 Telephone [facility] Cardiology - [facility] [address] [facility] [place] [address] Soni Thomas, KENN [address] [place] [address] Appointment Related Social History Tobacco Use Types [...] of Assessment Author No 07/12/2015 15:00 Duyen Patrick, KENN * Are you blind or do [...] encounter Miscellaneous Notes * Telephone Encounter - Soni Thomas RN - 07/14/2015 0400 EDT Message left reminding Phyliss of upcoming apt and prep for nuclear stress test. documented in this encounter Plan of Treatment Upcoming Encounters Date Type Department Care Team (Late st Contact Info) Description 01/04/2025 13:00 EST Office Visit [facility] Ophthalmology - [address] [phone] Gagandeep Rome MD [address] [place] [address], [facility] 5 [place] [phone] 02/11/2025 13:30 EDT Telemedicine [facility] Hematology & Oncology - [address] [phone] Dana Padilla MD [address] [place] [address], [facility] 2 [place] [phone] documented as of this encounter Visit Diagnoses Not on filedocumented in this encounter Care Teams Motor Boss Relationship Specialty Start Date End Date Emigdio Centeno MD [address] [place] [address] PCP - General 09/14/14 07/30/15 documented as of this encounter
--- OUTSIDE RECORDS SUMMARY | 2024-11-22 17:32 | XMS_ITS | Encounter Summary ---
Author Organization [facility] [place] [address] [place] [address] Care Team Providers Care Grader Patrol Name Role Phone Alma Farfan MD Primary Care Provider [phone] Reason for Visit * Reason Onset Date Comments Establish Care 10/22/2024 Encounter Details Date Type Department Care Team (Late st Contact Info) Description 10/22/2024 Telephone Orthopaedics at [facility] [place] [address] Kianna Houser Establish Care Social History Tobacco Use Types Packs/Day Years Used Date Smoking Tobacco: Every Day Cigarettes 0.3 30 Smokeless Tobacco: Never Comments:3-4 ciagarettes/day Alcohol Use Standard Drinks/Week Comments No 0 (1 standard drink = 0.6 oz pure alcohol) No hx of heavy ETOH. 1 drink 2-3 times a year. Last ETOH x 1 month ago. Sex and Gender Information Value Date Recorded Sex Assigned at Not on file Gender Identity Not on file Sexual Orientation Not on file documented as of this encounter Miscellaneous Notes * Telephone Encounter - Janiya Fountain - 10/25/2024 8:40 AM EST Received a fax from [facility] stating No images done there * Telephone Encounter - Kianna Houser - 10/22/2024 2:16 PM EST ASK THE PATIENT TO VERIFY INFORMATION BELOW: Full name: Tara Yun : 1960 Phone number: [phone] (home) Mailing address: [facility] [place] [address] AGE: 64 y.o. BE SURE TO UPDATE REGISTRATION IF THERE ARE CHANGES ABOVE What is the best phone number to reach the patient in the future? [phone] Is it okay to leave detailed messages on this phone? Yes Does the patient have an active [employer] account? No Is it okay to communicate through [employer]? No Does the patient have an alternate phone number? NA DIAGNOSIS: RIGHT SHOULDER When did the injury occur or when did the symptoms start: PT fell at the end of july Brief description of how the injury occurred, and/or what symptoms the patient is experiencing: fell on right side and was advised she would need surgery on the right shoulder and bicep. Pain is in the joint of the shoulder and goes down the arm. Pain does impact ROM. Unable to lift arm above head and to the side. If there is a fracture or dislocation, is there a Cast, Splint, Sling or Boot? N/A Can the patient walk on their own: Yes If they cannot walk on their own, what do they use to assist them: na Is this a worker's comp? No Is this a [employer] ([place] Department of [employer]) workers' comp claim or are you employed by the [email or web address]? No Is this third Libertarian Liability? No Has the patient had any imaging done for this issue? Yes XR yes When: July Where: [facility] MRI Yes When: August 2024 Where: [address] [address] [place], [place] PH: [phone]: [phone] [address] Yes When: July- August 2024 Where: [facility] No PET Scan No NM Bone Scan No Have the records been requested? Yes If records have not been requested, why? Na Has the patient had any additional studies related to this issue? No EMGS No LABS No RELEVANT DEPARTMENTS & PROVIDERS SEEN: Who has the patient seen for this issue, including Ortho, if applicable? (Please list all relevant providers) Provider Specialty: Orthopaedics Provider Name: manav Mart When: August- September 2024 Where: [facility] P: [phone] [address] [place] [address] Medical Records: P: [phone] F: [phone] [facility]: P: [phone] F: [phone] Have the records been requested? Yes If records have not been requested, why? Na If the patient has seen Orthopaedics or Podiatry previously: Is this for a second opinion? No Are you requesting the second opinion or is the provider? N/A Is this a transfer of care? Yes Have you been told you need surgery? Yes Have you had previous surgery on this body part? No If this is a recent injury or an urgent referral requiring Clinical Triage, the farm management agent must request any recent records (notes and images) to be sent from O.S. facility so Clinical Team can assess acuity. Please use .[email or web address] specify which O.S. facility the records are being requested from. Transmission can take several hours. Clinical Team will contact patient or return disposition on scheduling once records are received and assessed. documented in this encounter Plan of Treatment Upcoming Encounters Date Type Department Care Team (Late st Contact Info) Description 11/29/2024 1:30 PM EST Appointment XRay at [address] [place] [address] Laurent Cabrera MD [facility] [place] [address] 11/29/2024 2:20 PM EST Office Visit Orthopaedics at [facility] [place] [address] Laurent Cabrera MD [facility] [place] [address] documented as of this encounter Visit Diagnoses Not on filedocumented in this encounter Care Teams Grader Patrol Relationship Specialty Start Date End Date Alma Farfan MD [address] [place] [address] PCP - General Family Medicine 04/06/19 11/04/24 documented as of this encounter
--- OUTSIDE RECORDS SUMMARY | 2024-11-22 17:32 | XMS_ITS | Encounter Summary ---
Author Organization [facility] [address] [place] [address] Care Team Providers Care Attraction Attendant Name Role Phone Alma Farfan MD Primary Care Provider [phone] Encounter Details Date Type Department Care Team (Late st Contact Info) Description 06/05/2024 8:45 AM EDT Ancillary Procedure Radiology Library at [facility] [place] [address] Mat Iglesias MD [facility] [place] [address] Social History Tobacco Use Types Packs/Day Years Used Date Smoking Tobacco: Never Assessed Sex and Gender Information Value Date Recorded Sex Assigned at Not on file Gender Identity Not on file Sexual Orientation Not on file documented as of this encounter Plan of Treatment Upcoming Encounters Date Type Department Care Team (Late st Contact Info) Description 11/29/2024 1:30 PM EST Appointment XRay at [address] [place] [phone] Laurent Cabrera MD [facility] [place] [address] 11/29/2024 2:20 PM EST Office Visit [facility] at [facility] [place] [phone] Laurent Cabrera MD [facility] [place] [address] documented as of this encounter Procedures Procedure Name Priority Date/Time Associated Diagnosis Comments FILM LIBRARY STORAGE ONLY DX CHEST Routine 06/05/2024 8:45 AM EDT documented in this encounter Results * Film Library- Storage Only DX Chest (06/05/2024 8:45 AM EDT) 07/12/2024 2:41 AM EDT Narrative RAD - 07/12/2024 2:41 AM EDT This exam is auto-finalizing. It's purpose is for storage only. Mat Iglesias MD IMG FILM LIBRARY ORD ERABLES [place], [place] documented in this encounter Visit Diagnoses Not on filedocumented in this encounter Care Teams Attraction Attendant Relationship Specialty Start Date End Date Alma Farfan MD [address] [place] [phone] PCP - General Family Medicine 04/06/19 11/04/24 documented as of this encounter
--- OUTSIDE RECORDS SUMMARY | 2024-11-22 17:32 | XMS_ITS | Clinical Summary ---
Author Organization Formerly [facility] Address [facility] [address] [place] [address] Care Team Providers Care Mold Construction Supervisor Name Role Phone Mirna Guerrero Primary Care Provider [phone] Allergies Active Allergy Reactions Criticality Noted Date Comments Aspirin Other (See Comments) 11/09/2016 Low platelets Codeine Nausea Only Ketorolac Shortness Of Breath,Nausea Only,Rash High 09/14/2014 Pregabalin 08/31/2017 Short of breathe Metoclopramide Shortness Of Breath,Nausea Only,Other (See Comments) High 08/15/2013 Jittery Morphine Shortness Of Breath,Other (See Comments) High 03/30/2013 Abd. Pain Nsaids (Non-Steroidal Anti-Inflammatory Drug) Other (See Comments) 11/05/2016 Platlet count goes low Prochlorperazine Sulfa (Sulfonamide Antibiotics) Anaphylaxis,Itchin g,Rash High 03/30/2013 Acetaminophen Other (See Comments) 03/30/2013 Liver issues Medications Medication Sig Dispensed Refills Start Date End Date Status albuterol (PROVENTIL) 2.5 mg /3 mL (0.083 %) Solution for Nebulization Take 2.5 mg by nebulization every 6 hours as needed. Reported on 11/08/2016 Active ondansetron (ZOFRAN, HYDROCHLORIDE,) 4 mg Tablet Take 1-2 tablets by mouth every 8 hours as needed for Nausea. 12 tablet 11/20/2016 Active fluticasone (FLOVENT) 110 mcg/actuation HFA Aerosol Inhaler Inhale 1 puff into the lungs 2 times daily. 1 Inhaler 3 11/23/2016 Active albuterol (PROAIR HFA) 90 mcg/actuation HFA Aerosol Inhaler Inhale 2 puffs into the lungs every 6 hours as needed. Reported on 11/08/2016 1 Inhaler 3 11/23/2016 Active levothyroxine (SYNTHROID) 25 mcg TabletIndications:P ancytopenia Take 1 tablet by mouth daily. 30 tablet 11/23/2016 Active traZODone (DESYREL) 150 mg Tablet TAKE 1 TABLET BY MOUTH EVERYDAY AT BEDTIME 5 03/22/2019 Active UNABLE TO FIND Iron infusion Active ferrous sulfate 325 mg (65 mg iron) Tablet Take 325 mg by mouth daily. Active furosemide (Lasix) 20 mg Tablet Take 20 mg by mouth Daily. 04/10/2021 Active gabapentin (Neurontin) 100 mg Capsule 03/01/2021 Active gabapentin (Neurontin) 300 mg Capsule 03/30/2021 Active methocarbamoL (ROBAXIN) 750 mg Tablet Take 750 mg by mouth Three times daily as needed. 04/25/2021 Active omeprazole (PriLOSEC) 20 mg Capsule, Delayed Release(E.C.) 03/26/2021 Active sertraline (Zoloft) 50 mg Tablet Take 50 mg by mouth Daily. 04/10/2021 Active spironolactone (ALDACTONE) 50 mg Tablet Take 50 mg by mouth Daily. 04/16/2021 Active Active Problems Problem Noted Date Diagnosed Date Anemia, iron deficiency 08/08/2017 Anemia 08/07/2017 Mediastinal adenopathy 11/05/2016 Hypovitaminosis D 11/05/2016 Back pain 11/05/2016 Asthma 11/05/2016 Grief 11/05/2016 Allergic rhinitis 11/05/2016 Abdominal wall hernia 11/05/2016 GERD (gastroesophageal reflux disease) 6 Left ureteral stone 11/05/2016 Enlargement of spleen 07/18/2015 Cirrhosis of liver 05/02/2013 Obesity 05/02/2013 Hyperlipidemia 05/02/2013 Pancytopenia 03/30/2013 Hypothyroidism 03/29/2013 Depression with anxiety 03/29/2013 Chronic viral hepatitis C 03/29/2013 Current every day smoker 03/29/2013 S/P hernia repair 03/29/2013 Resolved Problems Problem Noted Date Diagnosed Date Resolved Date MGUS (monoclonal gammopathy of unknown significance) 11/08/2016 05/03/2019 Abnormal WBC count 11/05/2016 6 Anxiety 11/05/2016 11/09/2016 Kidney stone 11/05/2016 11/09/2016 Thrombocytopenia 11/05/2016 11/09/2016 Syncope 11/05/2016 11/09/2016 Encounters Date Type Department Care Team Description 11/19/2024 [place] [address] Laurent Cabrera MD Right shoulder pain, unspecified chronicity 11/05/2024 Transcribe Orders eD Incoming Referrals [phone] Leonora Oates APRN Shoulder pain, unspecified chronicity, unspecified laterality 10/22/2024 Telephone Orthopaedics [place] [address] Kianna Houser Establish Care from Last 3 Months Immunizations Name Administration Dates Next Due Influenza Trivalent, Preservative Free 6 Influenza Unspecified Formulation 09/24/2014 Pneumococcal Vaccine, Unspecified Formulation Family History Medical History Relation Comments Type 2 Diabetes Brother 7 Asthma Brother 8 Coronary Artery Disease Maternal Grandfather Hypertension Maternal Grandfather Coronary Artery Disease Maternal Grandmother Type 2 Diabetes Mother Relation Status Comments Brother 1 Alive age 50, healthy Brother 2 Alive age 48, healthy Brother 3 Alive 1/2 brother, age 63 - asthma, DM, COPD, tobacco use Brother 4 Alive 1/2 brother, age 64, healthy Brother 5 Alive 1/2 brother, age 44, healthy Brother 6 (Age 18) 1/2 brother. A ccidental - fell into garbage truck Brother 7 Brother 8 Daughter 1 Alive age 32, healthy Daughter 2 Alive age 31, healthy Father Alive age 83, polycyth emia vera, a. fib, OA Maternal Grandfather (Age 92) CAD, HTN Maternal Grandmother (Age 92) Polio, CA D Mother (Age 73) killed in MVA. DM Paternal Grandfather (Age 40's or 50's) MVA accident Paternal Grandmother (Age 84) unknown Sister 1 Alive 1/2 sister , age 64 - OA, obese Sister 2 Alive 1/2 sister, age 63 - Sister 3 Alive 1/2 sister, age 43 - Sister 4 Alive 1/2 sister, age 45 - OA, obese Son Alive age 29, healthy Social History Tobacco Use Types Packs/Day Years Used Date Smoking Tobacco: Every Day Cigarettes 0.3 30 Smokeless Tobacco: Never Tobacco Cessation:Ready to Q uit: No Comments:3-4 ciagarettes/day Alcohol Use Standard Drinks/Week Comments No 0 (1 standard drink = 0.6 oz pure alcohol) No hx of heavy ETOH. 1 drink 2-3 times a year. Last ETOH x 1 month ago. Sex and Gender Information Value Date Recorded Sex Assigned at Not on file Gender Identity Not on file Sexual Orientation Not on file Last Filed Vital Signs Vital Sign Reading Time Taken Comments Blood Pressure 121/73 08/16/2019 2:30 PM EDT Pulse 73 08/16/2019 2:03 PM EDT Temperature 37 ??C (98.6 ??F) 08/16/2019 12:23 PM EDT Respiratory Rate 20 08/16/2019 2:03 PM EDT Oxygen Saturation 97% 08/16/2019 2:30 PM EDT Inhaled Oxygen Concentration - - Weight 97.1 kg (214 lb) 05/04/2019 3:45 PM EDT Height 161.4 cm (5' 3.54) 05/04/2019 3:45 PM ED T Body Mass Index 37.26 05/04/2019 3:45 PM EDT Plan of Treatment Upcoming Encounters Date Type Department Care Team (Late st Contact Info) Description 11/29/2024 1:30 PM EST Appointment XRay at [address] [place] [phone] Laurent Cabrera MD [facility] [place] [address] 11/29/2024 2:20 PM EST Office Visit Orthopaedics at [facility] [place] [address] Laurent Cabrera MD [facility] [place] [address] Health Maintenance Due Date Last Done Comments CT Colonography 1960 FIT DNA 1960 FIT 1960 Sigmoidoscopy 1960 HIV screen 1978 Tetanus/Diphtheria/Pertussis Vaccines (1 - Tdap) 1979 HPV test 1990 PAP Smear 1990 Breast Cancer Share Decision Needed 2000 Breast Cancer screening 2000 Zoster vaccine (1 of 2) 2010 Advance Directive 2015 Pneumococcal Vaccine: At-Ris k 5-64yrs (2 of 2 - PCV) 09/24/2015 09/24/2014 Lipid Screening 05/02/2018 05/02/2013 RSV Vaccine (1 - Risk 60-74 years 1-dose series) 2020 Covid-19 Vaccine (4 - 2023-2 5 season) 2024 05/20/2022, 05/15/2021, 04/01/2021 Influenza (Flu) vaccine (1 o f 1 - Influenza standard series) 07/22/2024 08/05/2016, 09/24/2014 Colonoscopy 08/16/2029 08/16/2019, 07/23, 06/06/2013, Additional history exists Colorectal Cancer Screening 08/16/2029 Sigmoidoscopy (10 year) with FIT yearly 08/16/2029 08/16/2019, 08/16/2019, 06/06/2013, Additional history exists Diabetes Screening (HgbA1C o r Glucose) Discontinued 08/16/2019, 04/18/2019, 04/06/2019, Additional history exists Procedures Procedure Name Priority Date/Time Associated Diagnosis Comments COMPREHENSIVE METABOLIC PANEL Routine 08/16/2019 3:26 PM EDT Pancytopenia Anemia, unspecified type Thrombocytopenia COLONOSCOPY Routine 08/16/2019 1:18 PM EDT LIPID PANEL (REFLEX DIRECT LDL) Routine 05/02/2013 12:36 PM EDT Cirrhosis of liver Obesity Hyperlipidemia Fatigue Elevated random blood glucose level from Last 3 Months or Most Recently Relevant to Health Maintenance Results * Comprehensive metabolic panel (non-fasting) (08/16/2019 3:26 PM EDT) Glucose 87 65 - 199 mg/dL [facility] Comment:Diabetes: >=200 mg/d L plus symptoms Blood Urea Nitrogen 15 8 - 18 mg/dL [facility] Creatinine 0.74 0.70 - 1.20 mg/dL [facility] Sodium 140 135 - 145 mmol/L [facility] Potassium 4.0 3.5 - 5.0 mmol/L [facility] Comment: Please note: ??Patients with WBC >100,000 may have falsely elevated Potassium levels. ??For accurate Potassium quantification in these patients send serum separator tube (gold top) for subsequent determinations. ??Contact the Clinical Chemistry Laboratory if there are any questions. Chloride 105 98 - 107 mmol/L [facility] Carbon Dioxide 26 22 - 31 mmol/L [facility] Anion Gap 9 5 - 15 mmol/L [facility] Calcium 8.6 8.5 - 10.5 mg/dL [facility] Protein, Total 7.0 6.1 - 8.0 gm/dL [facility] Albumin 4.1 3.2 - 5.2 gm/dL [facility] Aspartate Aminotransferase 18 0 - 30 unit/L [facility] Alanine Aminotransferase 12 0 - 30 unit/L [facility] Alkaline Phosphatase 86 35 - 105 unit/L [facility] Bilirubin, Total 1.0 0.2 - 1.3 mg/dL [facility] Est Glomerular Filtration Rate 89 >=60 mL/min/1. 73 m?? [facility] Comment: The eGFR was calculated using the CKD-EPI equation. As with all creatinine based estimates of kidney function, eGFR values calculated with the CKD-EPI equation are not accurate in patients with acute kidney failure, extremes of body mass or the acutely ill. [email or web address] CITYnk eGFR 103 >=60 mL/min/1. 73 m?? [facility] Comment: The eGFR was calculated using the CKD-EPI equation. As with all creatinine based estimates of kidney function, eGFR values calculated with the CKD-EPI equation are not accurate in patients with acute kidney failure, extremes of body mass or the acutely ill. [email or web address] CITYnkf Blood specimen (specimen) 08/16/2019 3:26 PM EDT 08/16/2019 3:37 PM EDT Narrative Resulting Agency Comment Spec In Lab Dom Zeng MD CHEMISTRY BRADEN SMITH [facility] [place] [address] * COLONOSCOPY (08/16/2019 1:18 PM EDT) COLONOSCOPY [facility] Endoscopy Procedure Date: 08/16/2019 1:18 PM ? Patient Name: Phyliss Yun ? Date of : 1960 ? Age: 59 ? Order #: [id number] ? Instrument Name: [id number] ? Procedure: ? Colonoscopy Indications: ? Iron deficiency anemia Providers: ? Ijeoma Smith MD, Lazaro Monsivais ? Maicol Wood Endoscopy Technician Referring MD: ?Alma Farfan MD Medicines: ? Monitored Anesthesia Care Complications: ? No immediate complications. Procedure: ? Pre-Anesthesia Assessment: ? - Prior to the procedure, a History ? and Physical was performed, and ? patient medications, allergies and ? sensitivities were reviewed. The ? patient's tolerance of previous ? anesthesia was reviewed. ? - The risks and benefits of the ? procedure and the sedation options ? and risks were discussed with the ? patient. All questions were answered ? and informed consent was obtained. ? The procedure, indications, benefits, ? risks and alternatives were explained ? to the patient. Specifically ? discussed were potential ? complications including, but not ? limited to, bleeding, perforation, ? infection, missing a cancer, and ? adverse medication reactions. The ? patient was placed in the left ? lateral decubitus position, and a ? digital rectal exam was performed. ? The Colonoscope was inserted in the ? anus and under direct visualization, ? advanced to the terminal ileum. ? Careful inspection was made as the ? colonoscope was withdrawn. The ? colonoscopy was performed without ? difficulty. The patient tolerated the ? procedure well. The quality of the ? bowel preparation was excellent. ? Findings: ? The ileum and colon (entire examined portion) ? appeared normal. ? Moderate Sedation: ? Not applicable - See Anesthesia documentation Impression: ?- The terminal ileum and entire ? examined colon are normal. ? - No specimens collected. Recommendation: ?- Repeat colonoscopy in 10 years for ? screening purposes. ? 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 ? Attending Participation: ? I personally performed the entire procedure. ? I was present during the intraservice time as ? documented by the sedation RN. ? Ijeoma Smith MD 08/16/2019 2:04:12 PM This report has been signed electronically. Number of Addenda: 0 Note Initiated On: 08/16/2019 1:18 PM PR[facility]ATION 08/16/2019 1:18 PM EDT Alma Farfan MD GENERAL SURGICAL ORD ERABLES PROVATION * (ABNORMAL) Lipid panel (fasting) (05/02/2013 12:36 PM EDT) Cholesterol, Total 162 <=199 mg/dL [facility] Comment: Recommendations of the NCEP Adult Treatment Panel for the following risk cutoff thresholds for the [place] population: Desirable: <200 mg/dL Borderline High: 200-239 mg/dL High: > or = 240 mg/dL Triglyceride 113 <=149 mg/dL [facility] Comment: Reference Range: Normal triglycerides: ??<150 mg/dL Borderline high: ??150-199 mg/dL High: ??200-499 mg/dL Very high: ??>lr=710 mg/dL NIDHI 2001; 285(19):7118-6352 HDL Cholesterol 39(L) >=40 mg/dL [facility] Comment: Reference range: ??Low HDL: ?? < 40 mg/dL ??Normal: ?40-60 mg/dL ??Desirable: > 60 mg/dL NIDHI 2001; 285(19):1965-5359 LDL Cholesterol 100(H) <=99 mg/dL [facility] Comment: Reference range: ?? Optimal: ?<100 mg/dL ?? Near Optimal/Above Optimal: ?? 100-129 mg/dL ?? Borderline high: ?130-159 mg/dL ?? High: ? 160-189 mg/dL ?? Very high: ?>mm=701 mg/dL NIDHI 2001: 285(19):1970-1404 Cholesterol/HDL Ratio 4.2 ratio [facility] Comment: A Cholesterol to HDL ratio below 4:1 is desirable. ??Studies suggest that increased CAD risk occurs at ratios above 5 for females and above 6 for men. ? [place] [employer] Association ??(http://www.americanheart.org) ? Dolly Int Med, 1994; 121:641 ? AM J Med, 1998; 105(1A):48S Blood specimen (specimen) 05/02/2013 12:36 PM EDT 05/02/2013 12:46 PM EDT Narrative Resulting Agency Comment Spec In Lab Juventino Esteban MD CHEMISTRY ORDERABLE S [facility] from Last 3 Months or Most Recently Relevant to Health Maintenance Care Teams Mold Construction Supervisor Relationship Specialty Start Date End Date Mirna Guerrero PA [address] [place] [address] PCP - General Family Medicine 11/05/24
--- OUTSIDE RECORDS SUMMARY | 2024-11-22 17:32 | XMS_ITS | Encounter Summary ---
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 Role Phone Emigdio Centeno MD Primary Care Provider [phone] Encounter Details Date Type Department Care Team (Late st Contact Info) Description 06/17/2015 14:39 EDT - 06/17/2015 22:19 EDT Emergency [facility] Emergency Department - [address] [id number] Ladonna López PA-C [address] [place] [address], [address] [place] [address] Emergency, DefaultMD Cyst of neck (Primary Dx) Discharge Disposition: Home or Self Care Social History Tobacco Use Types Packs/Day Years Used Date Smoking Tobacco: Every Day Cigarettes Smokeless Tobacco: Never Alcohol Use Standard Drinks/Week Comments No 0 (1 standard drink = 0.6 oz pur e alcohol) Comments Unknown Sex and Gender Information Value Date Recorded Sex Assigned at Female 03/01/2024 9:25 EDT Legal Sex Female 18:05 EST Gender Identity Female 10/03/2019 16:15 EST Sexual Orientation Not on file documented as of this encounter Discharge Instructions * Discharge Instructions* Ladonna López PA - 06/17/2015 22:12 EDT Your laboratory results are stable. Her vital signs have remained stable. On CAT scan it appears that you have a fluid-filled cyst or mass in your neck. This may be a benigncyst or an enlarged lymph node or could be an encapsulated abscess. ENT has been consulted. They would like to see you in their office for further evaluation and determination of the best way to better evaluate this abnormality in your neck and treated definitively. You have been placed on antibiotics at the recommendation of the ENT specialist. Take the antibiotic as directed for the full course. You have been given oxycodone to take for pain until you are seen by ENT. Been given Zofran to take as needed for nausea. You have been given referral information to the ENT clinic here at the hospital. Please call the clinic in the morning to arrange for a date and time for your follow-up appointment with the ENT specialist. Return to the Emergency Department (ED) if [...] Last Filled Start Date End Date ondansetron (ZOFRAN, HYDROCHLORIDE,) 4 mg tablet Take 2 Tabs by mouth every 8 hours as needed for Nausea 15 Tab 0 06/17/2015 12/17/2015 clindamycin (CLEOCIN) 300 mg capsule Take 1 Cap by mouth 3 times daily for 10 days 30 Cap 0 06/17/2015 06/27/2015 oxyCODONE (ROXICODONE) 5 mg immediate release tablet Take 1 Tab by mouth every 4 hours as needed for Pain Daily Max: 30 mg 15 Tab 0 06/17/2015 06/24/2015 documented in this encounter Discharge Disposition Disposition Code Departure Means Destination Home or Self Care documented in this encounter ED Notes * Ladonna López PA - 06/17/2015 2212 EDT Images from the original note were not included. DOS: 06/17/2015 No chief complaint on file. HPI The patient is a 54 y.o. female who presents today with No chief complaint on file. HPI Comments: Patient presents the emergency department for evaluation of 2 weeks increased swelling the left side of her face and neck with pain. Patient denies dental pain reporting that she has no teeth on that side of her mouth. Patient denies fever sweats or chills, but reports fatigue. The patient has not been evaluated medically, stating that she is moved up to the [facility] from [place] and has not established primary care in the area. She reports increased discomfort with swallowing but is not having any difficulty swallowing. The patient is eating and drinking. Patient denies chest pain or shortness of breath, although reports wheezing at baseline. The patient is a smoker . Denies abdominal pain nausea or vomiting or diarrhea. The history is provided by the patient. Review of Systems Review of Systems Constitutional: Negative for fever, chills, activity change, appetite change and fatigue. HENT: Positive for ear pain, facial swelling and trouble swallowing. Negative for congestion, dental problem, drooling, ear discharge, hearing loss, nosebleeds, postnasal drip, rhinorrhea, sore throat and voice change. Eyes: Negative for photophobia, pain and visual disturbance. Respiratory: Negative for apnea, cough, choking, chest tightness, shortness of breath, wheezing andstridor. Cardiovascular: Negative for chest pain, palpitations and leg swelling. Gastrointestinal: Negative for nausea, vomiting, abdominal pain and abdominal distention. Genitourinary: Negative. Musculoskeletal: Positive for myalgias, back pain, arthralgias, neck pain and neck stiffness. Negative for joint swelling and gait problem. Skin: Negative for pallor and rash. Neurological: Positive for facial asymmetry and headaches. Negative for dizziness, tremors, seizures, speech difficulty, weakness, light-headedness and numbness. Psychiatric/Behavioral: Positive for behavioral problems and dysphoric mood. Allergies Allergen Reactions ??? Morphine Anaphylaxis ??? Tylenol [Acetaminophen] Other (See Comments) Contraindication with medical hx ??? Toradol [Ketorolac] Shortness Of Breath ??? Aspirin Other (See Comments) Contraindication with medical hx ??? Reglan [Metoclopramide Hcl] Rash ??? Sulfa (Sulfonamide Antibiotics) Rash Physical Exam Constitutional: She is oriented to person, place, and time. Vital signs are normal. She appears well-developed and well-nourished. She is cooperative. She does not appear ill. No distress. HENT: Head: Normocephalic and atraumatic. Right Ear: Hearing, tympanic membrane, external ear and ear canal normal. Left Ear: Tympanic membrane normal. There is tenderness. No drainage or swelling. There is mastoid tenderness. No middle ear effusion. Mouth/Throat: Uvula is midline, oropharynx is clear and moist and mucous membranes are normal. No trismus in the jaw. Abnormal dentition. No dental abscesses or dental caries. Patient has left sided facial swelling at the mandible extending to the mastoid and down along the mandibular angle into the anterior cervical area with tenderness to palpation. No specific area of fluctuance noted. The face is not erythematous. The patient is missing teeth along the left upper and lower gumline. No erythema, swelling, or evidence for abscess noted. No trismus. Airway is patent Eyes: Conjunctivae and EOM are normal. Pupils are equal, round, and reactive to light. Neck: Neck supple. Muscular tenderness present. No spinous process tenderness present. Edema present. Patient has swelling with tenderness to palpation along the left anterior cervical margin with lymphadenopathy. Cardiovascular: Normal rate, regular rhythm, normal heart sounds and intact distal pulses. No murmur heard. Pulmonary/Chest: Effort normal. No respiratory distress. She has wheezes. She has no rales. She exhibits no tenderness. Abdominal: Soft. Bowel sounds are normal. She exhibits no distension and no mass. There is no tenderness. There is no rebound and no guarding. Musculoskeletal: Normal range of motion. She exhibits no edema or tenderness. Neurological: She is alert and oriented to person, place, and time. She exhibits normal muscle tone. Coordination normal. Skin: Skin is warm and dry. Psychiatric: She has a normal mood and affect. Nursing note and vitals reviewed. RESULTS EKG orders: None Radiology orders: CT NECK W CONTRAST Imaging Reviewed. I have independently reviewed the images. Results are notable for 2+ centimeter left cervical mass.? Question cyst versus abscess versus necrotic lymph node. ED Lab Results Labs Reviewed HEMAGRAM AND DIFFERENTIAL - Abnormal WBC 3.15 (*) Final RDW-CV 15.4 (*) Final PLT 63 (*) Final ABS Lymphs 0.51 (*) Final RBC 4.57 Final Hemoglobin 13.0 Final HCT 39.0 Final MCV 85 Final MCH 28.5 Final MCHC 33.3 Final RDW-SD 45.1 Final MPV 8.3 Final Neutrophils 71.1 Final Lymphocytes 16.3 Final Monocytes 9.1 Final Eosinophils 2.6 Final Basophils 0.9 Final ABS Neutrophils 2.24 Final ABS Monocytes 0.29 Final ABS Eosinophils 0.08 Final ABS Basophils 0.03 Final Type of Diff: Automated Final C REACTIVE PROTEIN - Abnormal C Reactive Protien 17.3 (*) Final URINE MICROSCOPIC ONLY - Abnormal Squam Epithel, UA Few (*) Final WBC, UA 1 to 5 Final RBC, UA 1 to 5 Final Renal Epithel, UA None seen Final Bacteria, UA None seen Final Crystals, UA None seen Final Casts, UA None seen Final UA Comment Microscopic results Final Mucus, UA Present Final POCT URINE DIPSTICK - Abnormal Blood 1+ (*) Final Leuk Esterase 1+ (*) Final Color YELLOW Final Clarity, UA Clear Final Glucose Neg Final Bilirubin Neg Final Ketones Neg Final Specific [place] 1.010 Final pH 6.5 Final Protein Neg Final Urobilinogen 0.2 Final Nitrite Neg Final Tech ID [id number] Final BACTERIAL CULTURE, URINE Result Final Value: Less than 10,000 CFU/ml Usual urogenital tiffanie. BUN BUN 12 Final CREATININE Creatinine 0.79 Final GFR, Calculated 85 Final ELECTROLYTES Sodium 140 Final Potassium 4.0 Final Chloride 101 Final CO2 30 Final SCREENING GLUCOSE Glucose, Screening 81 Final SED. RATE:WESTERGREN Sed. Rate Westergren 19 Final DRUG SCREEN 6 Amphetamine Screen, Urine Negative screen. Final Barbiturate Screen, Urine Negative screen. Final Benzodiazepine Screen, Urine Negative screen. Final Cannabinoid Scrn, Ur Negative screen. Final Opiate Scrn, Ur Negative screen. Final Cocaine Metabolites, Ur Presumptive positive, interpret with caution. Final ED/WICC ADD-ON Tests to be added URINE MICROSCOPIC, BACTERIAL CULTURE URINE Final Number for problems [id number] (ED) Final Procedures ED COURSE A medical screening exam was performed. The patient is a 54-year-old woman with past medical history significant for chronic pain syndrome, asthma, RA, cirrhosis of the liver who presents with 2 weekcourse of worsening left-sided facial and neck swelling and pain extending to the ear. Labs are stable. Patient is a history of being on chronic narcotics but states she is no longer taking them. Urine tox is negative for opiates but positive for cocaine.. Patient was treated with pain medications while in the department. CT shows 2+ centimeter fluid-filled area in the left anterior cervical region. Question whether this is a cyst versus a necrotic node versus an abscess. Reviewed findings with radiology was unable todetermine. Discussed patient with ENT over the phone and they reviewed the CT remotely. He feels that nothing needs to be performed emergently recommended patient follow- up with the ENT clinic tomorrow for further evaluation and consideration of biopsy either through IR or by ENT surgically. She was started on clindamycin per recommendations of ENT and ENT referral was given. ED return precautions discussed. ASSESSMENT AND PLAN Final diagnoses: Cyst of neck ED Current Prescriptions Medication Dispense Auth. Provider oxyCODONE (ROXICODONE) 5 mg immediate release tablet 15 Tab Ladonna Ma PA clindamycin (CLEOCIN) 300 mg capsule 30 Cap Ladonna Ma PA ondansetron (ZOFRAN, HYDROCHLORIDE,) 4 mg tablet 15 Tab Ladonna Ma PA DISPOSITION: Discharged The patient's pain was managed to an adequate level weighing risk vs. benefit of further medications. Upon departure from the Emergency Department, the patient's pain was 5 on a zero to ten scale. Condition at departure from the Emergency Department: Stable PCP: Emigdio Centeno MD (General) MDM Number of Diagnoses or Management Options Cyst of neck: new, needed workup Amount and/or Complexity of Data Reviewed Tests in the radiology section of CPT??: ordered and reviewed Discussion of test results with the performing providers: yes (Discussed with radiologist) Discuss the patient with other providers: yes (Consulted with ENT who reviewed the patient's CT remotely and gave recommendations without seeing the patient in the ED.) Independent visualization of images, tracings, or specimens: yes (Collection question: abscess versus cyst versus lymph node abnormality.) Risk of Complications, Morbidity, and/or Mortality Presenting problems: low Diagnostic procedures: low Management options: low Patient Progress Patient progress: stable Fausto Roberts was available for supervision. 06/20/2015 14:34 No flowsheet data found. * Kee Levine RN - 06/17/2015 2144 EDT PT updated waiting on CT results, but PA would be calling ENT to see her. * Kee Levine RN - 06/17/2015 1856 EDT Urine sent to lab for D6. * Eloy Augustine - 06/17/2015 1840 EDT Blood drawn via saline lock per protocol, tiger and purple tube(s) sent to lab per order. documented in this encounter Plan of Treatment Upcoming Encounters Date Type Department Care Team (Late st Contact Info) Description 01/04/2025 13:00 EST Office Visit [facility] Ophthalmology - [address] [id number] Gagandeep Rome MD [address] [place] [address], [facility] [address] [place] [id number] 02/11/2025 13:30 EDT Telemedicine [facility] Hematology & Oncology - [address] [phone] Dana Padilla MD [address] [place] [address], [address] [place] [address] documented as of this encounter Procedures Procedure Name Priority Date/Time Associated Diagnosis Comments ED/URGENT CARE ADD-ON STAT 06/17/2015 19:[address] NECK (SOFT TISSUE) W CONTRAST 06/17/2015 19:34 EDT POCT URINE DIPSTICK, CLINITEK STAT 06/17/2015 18:49 EDT SCREENING GLUCOSE STAT 06/17/2015 18: 39 EDT SED RATE STAT 06/17/2015 18:39 EDT COMPLETE BLOOD COUNT AND DIFFERENTIAL STAT 06/17/2015 18:39 EDT C REACTIVE PROTEIN STAT 06/17/2015 18 :39 EDT BUN STAT 06/17/2015 18:39 EDT CREATININE STAT 06/17/2015 18:39 EDT ELECTROLYTES STAT 06/17/2015 18:39 EDT URINE SEDIMENT (MICRO) WITHOUT REFLEX TO CULTURE Routine 06/17/2015 18:25 EDT DRUG SCREEN 6 STAT 06/17/2015 18:25 EDT BACTERIAL CULTURE, URINE Routine 06/17/2015 18:25 EDT documented in this encounter Results * ED/WICC ADD-ON (06/17/2015 19:35 EDT) Tests to be added URINE MICROSCOPIC, BACTERIAL CULTURE URINE 06/17/2015 19:31 EDT [facility] Number for problems [id number] (ED) 06/17/2015 19:31 EDT [facility] TOPOGRAPHY UNKNOWN / Unknown 06/17/2015 19:35 EDT 06/17/2015 19:40 EDT us Ladonna López PA-C HEMATOLOGY & PF4 ORDERAB LES Final Result Performing Organization Address City/State/[facility] Co de Phone Number [facility] [address] [place] [address] * CT NECK W CONTRAST (06/17/2015 19:34 EDT) Anatomical Region Laterality Modality Other 06/17/2015 19:3 4 EDT 06/18/2015 8:03 EDT Narrative 06/18/2015 8:[address] of the neck June 17, 2015. History: Left neck and facial swelling. Comparison: December 10, 2014. Technique: CT images were acquired to the neck after contrast administration and coronal and sagittal reformats were generated. Findings: Within the left neck lateral to the carotid bifurcation and just deep to the sternocleidomastoid muscle below the angle of the mandible there is a fluid collection which measures 2.5 cm AP by 2.3 cm transverse on image 91 of series 1 which demonstrates low attenuation centrally with a thin peripheral rim of increased density particularly at the posterior margin of the collection. Just beneath the collection there are likely small but rounded-appearing lymph nodes. There is a small amount of stranding of the adjacent fat, although this is limited to the immediate periphery of the mass without significant inflammation identified elsewhere. The mass is in close proximity to the deep parotid tissue on the left. No additional neck mass is identified. A few of the left internal jugular chain lymph nodes inferior to this collection are asymmetrically prominent, although they do not meet size criteria for pathologic involvement. The lung apices are clear. The thyroid gland is homogeneous. The salivary glands appear otherwise unremarkable. The visualized intracranial compartment and orbits also are unremarkable in appearance. There is soft tissue thickening in a few anterior right ethmoid air cells. The mastoid air cells are clear. The cervical spine is unremarkable in appearance. Impression: Partially cystic and partially solid mass in the left neck along the medial margin of the left parotid gland. There appears to be a small amount of adjacent inflammatory change. Differential considerations include a partially cystic neoplasm arising from the parotid tissue, necrotic lymph node, or perhaps infected branchial cleft cyst. A few adjacent left internal jugular chain nodes are mildly prominent and asymmetric but are nonspecific. Definitive diagnosis will likely require sampling. I have personally reviewed the images and the above interpretation and agree with the findings. Procedure Note Vazquez Seay MD - 06/18/2015 CT of the neck June 17, 2015. History: Left neck and facial swelling. Comparison: December 10, 2014. Technique: CT images were acquired to the neck after contrast administration and coronal and sagittal reformats were generated. Findings: Within the left neck lateral to the carotid bifurcation and just deep to the sternocleidomastoid muscle below the angle of the mandible there is a fluid collection which measures 2.5 cm AP by 2.3 cm transverse on image 91 of series 1 which demonstrates low attenuation centrally with a thin peripheral rim of increased density particularly at the posterior margin of the collection. Just beneath the collection there are likely small but rounded-appearing lymph nodes. There is a small amount of stranding of the adjacent fat, although this is limited to the immediate periphery of the mass without significant inflammation identified elsewhere. The mass is in close proximity to the deep parotid tissue on the left. No additional neck mass is identified. A few of the left internal jugular chain lymph nodes inferior to this collection are asymmetrically prominent, although they do not meet size criteria for pathologic involvement. The lung apices are clear. The thyroid gland is homogeneous. The salivary glands appear otherwise unremarkable. The visualized intracranial compartment and orbits also are unremarkable in appearance. There is soft tissue thickening in a few anterior right ethmoid air cells. The mastoid air cells are clear. The cervical spine is unremarkable in appearance. Impression: Partially cystic and partially solid mass in the left neck along the medial margin of the left parotid gland. There appears to be a small amount of adjacent inflammatory change. Differential considerations include a partially cystic neoplasm arising from the parotid tissue, necrotic lymph node, or perhaps infected branchial cleft cyst. A few adjacent left internal jugular chain nodes are mildly prominent and asymmetric but are nonspecific. Definitive diagnosis will likely require sampling. I have personally reviewed the images and the above interpretation and agree with the findings. Ladonna Lópze PA-C IMG CT ORDERABLES Final Result * (ABNORMAL) POCT URINE DIPSTICK (06/17/2015 18:49 EDT) Color YELLOW 06/17/2015 18:53 [facility] Clarity, UA Clear 06/17/2015 18:53 [facility] Glucose Neg Neg 06/17/2015 18:53 [facility] Bilirubin Neg Neg 06/17/2015 18:53 [facility] Ketones Neg Neg 06/17/2015 18:53 [facility] Specific [place] 1.010 1.001 - 1.035 06/17/2015 18:53 [facility] Blood 1+(A) Neg 06/17/2015 18:53 [facility] pH 6.5 4.6 - 8.0 06/17/2015 18:53 [facility] Protein Neg Neg 06/17/2015 18:53 [facility] Urobilinogen 0.2 0.2 - 1.0 E.U./dl 06/17/2015 18:53 [facility] Nitrite Neg Neg 06/17/2015 18:53 [facility] Leuk Esterase 1+(A) Neg 06/17/2015 18:53 EDT [facility] jewel blocker and sawyer ID [id number] 06/17/2015 18:53 EDT [facility] Comment:Test performed at [facility] Urine specimen (specimen) URINE / Unknown 06/17/2015 18:49 EDT 06/17/2015 18:53 EDT Ladonna López PA-C POINT OF CARE TEST ORDER YANN Final Result Performing Organization Address [facility]ZIP Co de Phone Number [facility] [address] [place] [address] * (ABNORMAL) C REACTIVE PROTEIN (06/17/2015 18:39 EDT) Pathologist [facility] C Reactive Protein 17.3(H) <10.0 mg/L 06/17/2015 19:03 EDT [facility] Comment: Note units change to mg/L. Values will be 10 fold higher than with previous units of mg/dl. Blood specimen (specimen) BLOOD SPECIMEN / Unknown 06/17/2015 18:39 EDT 06/17/2015 18:43 EDT Ladonna López PA-C CHEMISTRY & BLOOD GAS OR DERABLES Final Result Performing Organization Address [facility] Co de Phone Number [facility] [address] [place] [address] * SED. RATE:TULIOREN (06/17/2015 18:39 EDT) Pathologist [facility] Sed. Rate Westergren 19 0 - 30 mm/hr 06/17/2015 18:57 EDT [facility] Blood specimen (specimen) BLOOD SPECIMEN / Unknown 06/17/2015 18:39 EDT 06/17/2015 18:43 EDT Ladonna López PA-C HEMATOLOGY & PF4 ORDERAB LES Final Result Performing Organization Address [facility]ZIP Co de Phone Number [facility] [address] [place] [address] * (ABNORMAL) HEMAGRAM AND DIFFERENTIAL (06/17/2015 18:39 EDT) WBC 3.15(L) 4.0 - 12.4 K/cmm 06/17/2015 18:53 [facility] RBC 4.57 3.86 - 5.04 M/cmm 06/17/2015 18:53 [facility] Hemoglobin 13.0 11.6 - 15.2 gm/dl 06/17/2015 18:53 [facility] HCT 39.0 34.9 - 44.4 % 06/17/2015 18:53 [facility] MCV 85 81 - 98 fl 06/17/2015 18:53 [facility] MCH 28.5 26.7 - 33.3 pg 06/17/2015 18:53 [facility] MCHC 33.3 32.1 - 35.9 gm/dl 06/17/2015 18:53 [facility] RDW-CV 15.4(H) 11.7 - 14.6 % 06/17/2015 18:53 [facility] RDW-SD 45.1 37.6 - 50.3 fl 06/17/2015 18:53 [facility] PLT 63(L) 141 - 320 K/cmm 06/17/2015 18:53 [facility] MPV 8.3 7.5 - 11.2 fl 06/17/2015 18:53 [facility] % Neutrophils 71.1 45.5 - 79.7 % 06/17/2015 18:53 [facility] % Lymphocytes 16.3 15.0 - 46.8 % 06/17/2015 18:53 [facility] % Monocytes 9.1 1.8 - 12.0 % 06/17/2015 18:53 [facility] % Eosinophils 2.6 0.6 - 6.9 % 06/17/2015 18:53 [facility] % Basophils 0.9 0.2 - 1.4 % 06/17/2015 18:53 [facility] ABS Neutrophils 2.24 2.20 - 8.85 K/cm 06/17/2015 18:53 [facility] ABS Lymphs 0.51(L) 1.09 - 3.30 K/[facility] 06/17/2015 18:53 [facility] ABS Monocytes 0.29 0.1 - 0.8 K/[facility] 06/17/2015 18:53 [facility] ABS Eosinophils 0.08 0.03 - 0.61 K/[facility] 06/17/2015 18:53 [facility] ABS Basophils 0.03 0.01 - 0.11 K/[facility] 06/17/2015 18:53 [facility] Type of Diff: Automated 06/17/2015 18:53 [facility] Blood specimen (specimen) BLOOD SPECIMEN / Unknown 06/17/2015 18:39 EDT 06/17/2015 18:43 EDT Ladonna CarvajalC PACKAGES & DNA PROBE ORD ERABLES Final Result [facility] [address] [place] [address] * SCREENING GLUCOSE (06/17/2015 18:39 EDT) Glucose, Screening 81 70 - 100 mg/dl 06/17/2015 19:03 [facility] Blood specimen (specimen) BLOOD SPECIMEN / Unknown 06/17/2015 18:39 EDT 06/17/2015 18:43 EDT Ladonna López PA-C CHEMISTRY & BLOOD GAS OR DERABLES Final Result [facility] [address] [place] [address] * ELECTROLYTES (06/17/2015 18:39 EDT) Sodium 140 136 - 145 mEq/L 06/17/2015 19:03 T [facility] Potassium 4.0 3.5 - 5.0 mEq/L 06/17/2015 19:03 EDT [facility] Chloride 101 96 - 110 mEq/L 06/17/2015 19:03 EDT [facility] CO2 30 24 - 32 mEq/L 06/17/2015 19:03 EDT [facility] Blood specimen (specimen) BLOOD SPECIMEN / Unknown 06/17/2015 18:39 EDT 06/17/2015 18:43 EDT Ladonna Robins-C CHEMISTRY & BLOOD GAS OR DERABLES Final Result Performing Organization Address [facility] Co de Phone Number [facility] [address] [place] [address] * CREATININE (06/17/2015 18:39 EDT) Creatinine 0.79 0.52 - 1.04 mg/dl 06/17/2015 19:03 EDT [facility] GFR, Calculated 85 >60 ml/min/1.7 3m2 06/17/2015 19:03 EDT [facility] Comment: eGFR calculated using CKD-EPI equation for non Americans. Multiply eGFR by 1.16 for Americans. Blood specimen (specimen) BLOOD SPECIMEN / Unknown 06/17/2015 18:39 EDT 06/17/2015 18:43 EDT Ladonna CarvajalC CHEMISTRY & BLOOD GAS OR DERABLES Final Result Performing Organization Address City/[facility]/ZIP Co de Phone Number [facility] [address] [place] [address] * BUN (06/17/2015 18:39 EDT) BUN 12 10 - 26 mg/dl 06/17/2015 19:03 EDT [facility] Blood specimen (specimen) BLOOD SPECIMEN / Unknown 06/17/2015 18:39 EDT 06/17/2015 18:43 EDT Ladonna Robins-C CHEMISTRY & BLOOD GAS OR DERABLES Final Result Performing Organization Address City/[facility]/ZIP Co de Phone Number [facility] [address] [place] [address] * BACTERIAL CULTURE, URINE (06/17/2015 18:25 EDT) Result Less than 10,000 CFU/ml Usual urogenital tiffanie. 06/19/2015 7:30 EDT [facility] URINE / Unknown 06/17/2015 1 8:25 EDT 06/17/2015 18:55 EDT Ladonna López PA-C MICROBIOLOGY - GENERAL O RDERABLES Final Result Performing Organization Address [facility] Co de Phone Number [facility] [address] [place] [address] * (ABNORMAL) URINE MICROSCOPIC ONLY (06/17/2015 18:25 EDT) WBC, UA 1 to 5 0 - 5 /HPF 06/17/2015 20:01 [facility] RBC, UA 1 to 5 0 - 5 /HPF 06/17/2015 20:01 [facility] Squam Epithel, UA Few(A) None seen /HPF 06/17/2015 20:01 [facility] Renal Epithel, UA None seen None seen /HPF 06/17/2015 20:01 [facility] Bacteria, UA None seen None seen /HPF 06/17/2015 20:01 [facility] Crystals, UA None seen /HPF 06/17/2015 20:01 [facility] Hyaline Casts, UA None seen /LPF 06/17/2015 20:01 [facility] UA Comment Microscopic results 06/17/2015 19:39 [facility] Comment: are unreliable on urines unrefrig >2hrs or refrig >8hrs. Mucus, UA Present 06/17/2015 20:01 [facility] URINE / Unknown 06/17/2015 1 8:25 EDT 06/17/2015 18:55 EDT Ladonna López PA-C URINALYSIS ORDERABLES Fi nal Result [facility] [address] [place] [address] * DRUG SCREEN 6 (06/17/2015 18:25 EDT) Amphetamine Screen, Urine Negative screen. 06/17/2015 19:47 T [facility] Comment: Confirmation testing available upon request. Suitable for medical purposes only. Will not detect all drugs within class. Cutoff = 1000 ng/ml Specimen type is urine. Barbiturate Screen, Urine Negative screen. 06/17/2015 19:47 T [facility] Comment: Confirmation testing available upon request. Suitable for medical purposes only. Will not detect all drugs within class. Cutoff = 300 ng/ml Specimen type is urine. Benzodiazepine Screen, Urine Negative screen. 06/17/2015 19:47 T [facility] Comment: Confirmation testing available upon request. Suitable for medical purposes only. Will not detect all drugs within class. Assay less sensitive to Lorazepam and metabolites. Cutoff = 200 ng/ml Specimen type is urine. Cannabinoid Scrn, Ur Negative screen. 06/17/2015 19:47 T [facility] Comment: Confirmation testing available upon request. Suitable for medical purposes only. Will not detect all drugs within class. Cutoff = 50 ng/ml Specimen type is urine. Opiate Scrn, Ur Negative screen. 06/17/2015 19:47 T [facility] Comment: Confirmation testing available upon request. Suitable for medical purposes only. Will not detect all drugs within class. Cutoff = 300 ng/ml Assay less sensitive to oxycodone and metabolites. Assay does not detect methadone. Specimen type is urine. Cocaine Metabolites, Ur Presumptive positive, interpret with caution. 06/17/2015 19:47 [facility] Comment: Confirmation testing available upon request. Suitable for medical purposes only. Will not detect all drugs within class. Cutoff = 300 ng/ml Specimen type is urine. Urine specimen (specimen) URINE / Unknown 06/17/2015 18:25 EDT 06/17/2015 18:55 EDT us Ladonna López PA-C URINALYSIS ORDERABLES Fi nal Result [facility] [address] [place] [address] documented in this encounter Visit Diagnoses Diagnosis Cyst of neck- Primary documented in this encounter Administered Medications Inactive Administered Medications - up to 3 most recent administrations Medication Order MAR Action Action Date Dose Rate Site clindamycin (CLEOCIN) 150 mg cap STARTER PACK 1 Package, oral, NOW X1, 1 dose, On Tue06/17/15 at 2215, STAT Given 06/17/2015 22:19 EDT 1 Package HYDROmorphone (PF) (DILAUDID) 1 mg/mL injection 0.5 mg 0.5 mg, intravenous, NOW X1, 1 dose, On Tue06/17/15 at 1830, STAT Given 06/17/2015 18:56 EDT 0.5 mg HYDROmorphone (PF) (DILAUDID) 1 mg/mL injection 0.5 mg 0.5 mg, intravenous, NOW X1, 1 dose, On Tue06/17/15 at 2014, STAT Given 06/17/2015 20:16 EDT 0.5 mg ondansetron (PF) (ZOFRAN) injection 4 mg 4 mg, intravenous, NOW X1, 1 dose, On Tue06/17/15 at 1830, STAT Given 06/17/2015 18:56 EDT 4 mg ondansetron (PF) (ZOFRAN) injection 4 mg 4 mg, intravenous, NOW X1, 1 dose, On Tue06/17/15 at 2014, STAT Given 06/17/2015 20:16 EDT 4 mg ondansetron 4 mg ODT tab STARTER PACK 1 Package, oral, NOW X1, 1 dose, On Tue06/17/15 at 2215, STAT Given 06/17/2015 22:19 EDT 1 Package oxyCODONE (ROXICODONE) immediate release tablet 10 mg 10 mg, oral, NOW X1, 1 dose, On Tue06/17/15 at 2215, STAT Given 06/17/2015 22:19 EDT 10 mg oxyCODONE-acetaminophen (PERCOCET) 5-325 mg per tablet 1 Tab 1 Tablet, oral, NOW X1, 1 dose, On Tue06/17/15 at 2145, STAT Given 06/17/2015 21:44 EDT 1 Tablet sodium chloride 0.9 % BOLUS 1,000 mL 1,000 mL, intravenous, NOW X1, 1 dose, On Tue06/17/15 at 1815, STAT New Bag 06/17/2015 18:41 EDT 1,000 mL documented in this encounter Discontinued Medications Medication Sig Discontinue Reason Start Date End Da te oxyCODONE 10 mg immediate release tablet Take 1 Tab by mouth every 4 hours as needed for Pain. Earliest Fill Date: 12/10/14 12/10/2014 06/17/2015 oxyCODONE 10 mg immediate release tablet Take 1 Tab by mouth every 4 hours as needed for Pain. Earliest Fill Date: 12/10/14 12/10/2014 06/17/2015 documented as of this encounter Active and Recently Administered Medications Times are shown in EDT. Scheduled Medication Order 06/15/2015 06/16/2015 06/17/2015 clindamycin (CLEOCIN) 150 mg cap STARTER PACK (COMPLETED) 1 Package, oral, NOW X1, 1 dose, On Tue06/17/15 at 2215, STAT 2219 (Given - Provid er: Kee Levine RN) HYDROmorphone (PF) (DILAUDID) 1 mg/mL injection 0.5 mg (COMPLETED) 0.5 mg, intravenous, NOW X1, 1 dose, On Tue06/17/15 at 1830, STAT 1856 (Given - Provid er: Kee Levine RN) HYDROmorphone (PF) (DILAUDID) 1 mg/mL injection 0.5 mg (COMPLETED) 0.5 mg, intravenous, NOW X1, 1 dose, On Tue06/17/15 at 2015, STAT 2016 (Given - Provid er: eKe Levine RN) ondansetron (PF) (ZOFRAN) injection 4 mg (COMPLETED) 4 mg, intravenous, NOW X1, 1 dose, On Tue06/17/15 at 1830, STAT 1856 (Given - Provid er: Kee Levine RN) ondansetron (PF) (ZOFRAN) injection 4 mg (COMPLETED) 4 mg, intravenous, NOW X1, 1 dose, On Tue06/17/15 at 2015, STAT 2016 (Given - Provid er: Kee Levine RN) ondansetron 4 mg ODT tab STARTER PACK (COMPLETED) 1 Package, oral, NOW X1, 1 dose, On Tue06/17/15 at 2215, STAT 2219 (Given - Provid er: Kee Levine RN) oxyCODONE (ROXICODONE) immediate release tablet 10 mg (COMPLETED) 10 mg, oral, NOW X1, 1 dose, On Tue06/17/15 at 2215, STAT 2219 (Given - Provid er: Kee Levine RN - Comment: take home) oxyCODONE-acetaminophen (PERCOCET) 5-325 mg per tablet 1 Tab (COMPLETED) 1 Tablet, oral, NOW X1, 1 dose, On Tue06/17/15 at 2145, STAT 2144 (Given - Provid er: Kee Levine RN) sodium chloride 0.9 % BOLUS 1,000 mL (COMPLETED) 1,000 mL, intravenous, NOW X1, 1 dose, On Tue06/17/15 at 1815, STAT 1841 (New Bag - Prov ider: Eloy Augustine) documented in this encounter Orders Medications Ordered That Luc ht Not Have Been Administered Count Last Ordered Date First Ordered Date oxyCODONE-acetaminophen (PER COCET) 5-325 mg per tablet 1 06/17/2015 Nursing Count Last Ordered Date First Orde red Date INSERT PERIPHERAL IV 1 06/17/2015 documented in this encounter Care Teams Automobile Body Repairer Helper Relationship Specialty Start Date End Date Emigdio Centeno MD [address] [place] [id number] PCP - General 09/14/14 07/30/15 documented as of this encounter
--- OUTSIDE RECORDS SUMMARY | 2024-11-22 17:32 | XMS_ITS | Encounter Summary ---
Author Organization [facility] Address [address] [place] [address] Care Team Providers Care Clinical Trial Assistant Name Role Phone Emigdio Centeno MD Primary Care Provider [phone] Reason for Visit * Reason Comments Dental Pain Pt arrives via triag e with c/o dental pain after she was eating oatmeal and some got stuck in her tooth. Pain started a few days ago. No doctor in this area Encounter Details Date Type Department Care Team (Late st Contact Info) Description 09/14/2014 16:35 EDT - 09/14/2014 22:23 EDT Emergency [facility] Emergency Department - Main [place] [address] [place] [address] Tino Kebede, PA-C [address] [place] [address] Emergency, MD Rolando Dental abscess (Primary Dx) Discharge Disposition: Home or Self Care Social History Tobacco Use Types Packs/Day Years Used Date Smoking Tobacco: Every Day Cigarettes Alcohol Use Standard Drinks/Week Comments No 0 [...] Sign Reading Time Taken Comments Blood Pressure 135/87 09/14/20142002 EDT Pulse 75 09/14/20142002 EDT Temperature 36.7 ??C (98 ??F) 09/14/20142002 EDT Respiratory Rate 18 09/14/20142002 EDT Oxygen Saturation 97% 09/14/20142002 EDT Inhaled Oxygen Concentration - - Weight 95.3 kg (210 lb) 09/14/2014 1658 EDT Height 165.1 cm (5' 5) 09/14/2014 1658 EDT Body Mass Index 34.95 09/14/2014 1658 EDT documented in this encounter Discharge Instructions * Discharge Instructions* Luis Eduardo Kebede - 09/14/2014 22:09 EDT Take clindamycin as prescribed. Take Tylenol 650-1000mg every 8 hours NEEDED for pain. Do not exceed a total of 3000mg in a 24 hours period. Take Ibuprofen/Motrin/Advil 400-800mg every 8 hours NEEDED for pain. Do not exceed a total of 2400mg in a 24 hour period Take Vicodin 5/325 mg, 1-2 tablets every 6 hours NEEDED for severe pain. Do not exceed a total of 3000mg of Tylenol in a 24 hours period. DO NOT take tylenol when taking Vicodin as they both contain Tylenol. Follow up with Dental Clinic, call on Tuesday to be seen. documented in this encounter Medications at Time of Discharge albuterol 90 mcg/actuation inhaler Inhale 2 Puffs as directed every 4 hours as needed. 09/18/2021 ALPRAZolam (XANAX) 1 mg tablet Take 1 mg by mouth 3 times daily. 09/30/2017 clindamycin (CLEOCIN) 300 mg capsule Take 1 Cap by mouth every 6 hours. 36 Cap 0 09/14/2014 03/24/2015 cyanocobalamin 500 mcg tablet Take 1,000 mcg [...] Take 40 mg by mouth daily. 01/03/2019 documented as of this encounter Ordered Prescriptions Prescription Sig Dispense Quantity Refills Last Filled Start Date End Date clindamycin (CLEOCIN) 300 mg capsule Take 1 Cap by mouth every 6 hours. 36 Cap 0 09/14/2014 03/24/2015 documented in this encounter Discharge Disposition Disposition Code Departure Means Destination Home or Self Care Car Home documented in this encounter ED Notes * Sharon Comer RN - 09/14/20142102 EDT Blood drawn via butterfly needle per protocol, blue tube(s) sent to lab per order. * Sharon Comer RN - 09/14/20142054 EDT Dental resident in to see pt. * Luis Eduardo Kebede - 09/14/20142010 EDT DOS: 09/14/2014 Chief Complaint Patient presents with ??? Dental Pain Pt arrives via triage with c/o dental pain after she was eating oatmeal and some got stuck in her tooth. Pain started a few days ago. No doctor in this area The patient is a 54 y.o. female who presents today with Dental Pain HPI Patient presents with left lower dental pain and swelling times her to 6 hours. Pain began after eating an oatmeal cookie. She has had swelling for 24 hours. No fevers, chills, sweats, nausea or vomiting. Chronically poor dentition. Review of Systems Constitutional: Negative for fever and chills. HENT: Positive for dental problem and facial swelling. Eyes: Negative for visual disturbance. Respiratory: Negative for shortness of breath. Cardiovascular: Negative for chest pain. Gastrointestinal: Negative for abdominal pain. Genitourinary: Negative for dysuria. Musculoskeletal: Negative for back pain and neck stiffness. Skin: Negative for rash. Neurological: Negative for headaches. Psychiatric/Behavioral: Negative for confusion. All other systems reviewed and are negative. Past Medical History Diagnosis Date ??? Cirrhosis of liver Past Surgical History Procedure Laterality Date ??? Hernia repair ??? Appendectomy ??? Tonsillectomy ??? Cholecystectomy ??? Hysterectomy ??? Knee surgery Allergies Allergen Reactions ??? Morphine Anaphylaxis ??? Toradol [Ketorolac] Shortness Of Breath ??? Reglan [Metoclopramide Hcl] Rash ??? Sulfa (Sulfonamide Antibiotics) Rash History Substance Use Topics ??? Smoking status: Current Every Day Smoker -- 0.50 packs/day ??? Smokeless tobacco: Not on file ??? Alcohol Use: No No family history on file. Vital Signs Temp: 36.7 ??C (98 ??F) Temp src: Oral Pulse: 75 Resp: 18 SpO2: 97 % BP: 135/87 mmHg BP Device: BP Machine O2 Device: None (Room air) Physical Exam Nursing note and vitals reviewed. Constitutional: She is oriented to person, place, and time. She appears well- developed and well-nourished. HENT: Right Ear: External ear normal. Left Ear: External ear normal. Nose: Nose normal. Mild left-sided facial tenderness, no erythema. Mild swelling. Chronically poor dentition, missing a significant amount of teeth. Obvious area of fluctuance on left lower jaw intraorally Eyes: Pupils are equal, round, and reactive to light. Right eye exhibits no discharge. Left eye exhibits no discharge. Neck: Normal range of motion. Neck supple. No tracheal deviation present. Cardiovascular: Normal rate. Pulmonary/Chest: Effort normal. No respiratory distress. Neurological: She is alert and oriented to person, place, and time. She has normal strength. No sensory deficit. Skin: Skin is warm. No rash noted. Psychiatric: She has a normal mood and affect. Radiology orders: None Imaging Results None Procedures ED Course: A medical screening exam was performed. Dental resident consulted for dental abscess. Performed procedure DC home, clinda, analgesia follow up with dental clinic tomorrow Disposition: Discharged The patient's pain was managed to an adequate level weighing risk vs. benefit of further medications. Upon departure from the Emergency Department, the patient's pain was 9 on a zero to ten scale. Condition at departure from the Emergency Department: Good ED Current Prescriptions Medication Dispense Auth. Provider clindamycin (CLEOCIN) 300 mg capsule 36 Cap Tino Kebede PA [facility] Final diagnoses: Dental abscess PCP: Emigdio Centeno MD Maria Luisa Moreno was available for supervision. 09/16/2014 10:46 No flowsheet data found. * Maryellen Johansen RN - 09/14/2014 1713 EDT After triage, pt fell to the floor as she was walking out of triage office and layed on the floor. Pt states the pain is so bad that she passed out. Pt A&Ox3 immediately and assisted with sittingup and assisted out to Waiting Room. Pt has straight steady gait walking. Pt denies any pain exceptfor for her dental pain. documented in this encounter Miscellaneous Notes * ED Consult - Dilan King MD - 09/14/2014 2201 EDT Patient present to ED with CC: I have an infected tooth. Reviewed medical history. Significant for liver cirrhosis. Pt reports bleeding precautions. PT/INR ordered - WNL S: Patient presents with pain and swelling in left mandible radiating from left ear to neck. Pain started 2 days ago when eating oatmeal cookie. Patient felt that a piece was stuck under tooth and tried to dig it out. Constant pain, unable to sleep. No breathing obstruction. Eating/drinking causes local pain, but able to swallow. Taking OTC tylenol with no pain relief. O: Unilateral swelling of left mandible. Tooth #21 presents with gross caries. Palpation of buccal vestibule was firm, non fluctuant. Pain on percussion. Pain on palpation A: #21 Gross caries. Symptomatic apical abscess extending to buccal space P: 3 (x1.7mL) carpules 2% lido with epi 1:100,000 IAB and LI. Pt reports pain relief. #15 blade incision in buccal vestibule. No purulence. Bleeding control with gauze and pressure. Pt prescribed Percocet and Clindamycin, given extra gauze, referral to [facility] for Tuesday (09/16). Pt discharged alert and ambulatory. Dilan King, Dental Resident documented in this encounter Plan of Treatment Upcoming Encounters Date Type Department Care Team (Late st Contact Info) Description 01/04/2025 13:00 EST Office Visit [facility] Ophthalmology - [address] [id number] Gagandeep Rome MD [address] [place] [address], [facility] [address] [place] [phone] 02/11/2025 13:30 EDT [facility] H[facility] [address] [phone] Dana Padilla MD [address] [place] [address], [facility] [address] [place] [phone] documented as of this encounter Procedures Procedure Name Priority Date/Time Associated Diagnosis Comments PROTIME STAT 09/14/2014 20:47 EDT documented in this encounter Results * (ABNORMAL) PROTIME (09/14/2014 20:47 EDT) Pro Time 12.5(H) 9.5 - 12.3 secs [facility] I.N.R. 1.2(H) 0.9 - 1.1 Ratio [facility] Comment: Moderate Intensity Coumadin INR = 2.0-3.0 Adjustments in anticoagulant therapy dose should be based upon the INR and NOT the Pro Time. Blood specimen (specimen) 09/14/2014 20:47 EDT 09/14/2014 21:04 EDT us Tino J Salter PA-C HEMATOLOGY & PF4 ORDERABLE S Final Result [facility] [address] [place] [address] documented in this encounter Visit Diagnoses Diagnosis Dental abscess- Primary Periapical abscess without sinus documented in this encounter Administered Medications Inactive Administered Medications - up to 3 most recent administrations Medication Order MAR Action Action Date Dose Rate Site clindamycin (CLEOCIN) 150 mg cap STARTER PACK 1 Package, oral, Once (Without Time Specified), 1 dose, Starting on 09/14/14 at 2209, Until 09/14/14 at 2222, STAT Given 09/14/2014 22:22 EDT 1 Package clindamycin (CLEOCIN) capsule 300 mg 300 mg, oral, NOW X1, 1 dose, On 09/14/14 at 2000, STAT Given 09/14/2014 20:07 EDT 300 mg Oxycodone w APAP?? 5- 325 mg Tab STARTER PACK 1 Package, oral, NOW X1, 1 dose, On 09/14/14 at 2215, STAT Given 09/14/2014 22:22 EDT 1 Package oxyCODONE-acetaminophen (PERCOCET) 5-325 mg per tablet 1 Tab 1 Tablet, oral, NOW X1, 1 dose, On 09/14/14 at 2000, STAT Given 09/14/2014 20:07 EDT 1 Tablet documented in this encounter Historical Medications * This list may reflect changes made after this encounter. LACTULOSE ORAL Take by mouth. 2014 ALPRAZolam (XANAX) 1 mg tablet Take 1 mg by mouth 3 times daily. 09/30/2017 fluticasone (FLOVENT) 110 mcg/actuation inhaler Inhale 110 mcg as directed 2 times daily. 11/26/2019 albuterol 90 mcg/actuation inhaler Inhale 2 Puffs as directed every 4 hours as needed. 09/18/2021 cyanocobalamin 500 mcg tablet Take 1,000 mcg by mouth daily. 07/29/2015 ferrous gluconate (FERGON) 324 mg (38 mg iron) tablet Take 324 mg by mouth daily with breakfast. 04/23/2021 LEVOTHYROXINE SODIUM (LEVOTHYROXINE ORAL) Take 25 mcg by mouth daily. Unknown dose 11/03/2020 pantoprazole (PROTONIX) 40 mg tablet Take 40 mg by mouth daily. 01/03/2019 added in this encounter Active and Recently Administered Medications Times are shown in EDT. Scheduled Medication Order 09/12/2014 09/13/2014 09/14/2014 clindamycin (CLEOCIN) 150 mg cap STARTER PACK (COMPLETED) 1 Package, oral, Once (Without Time Specified), 1 dose, Starting on 09/14/14 at 2209, Until 09/14/14 at 2222, STAT 2222 (Given - Provid er: Fausto Lopez RN) clindamycin (CLEOCIN) capsule 300 mg (COMPLETED) 300 mg, oral, NOW X1, 1 dose, On 09/14/14 at 2000, STAT 2006 (Given - Provid er: Sharon Comer RN) Oxycodone w APAP?? 5- 325 mg Tab STARTER PACK (COMPLETED) 1 Package, oral, NOW X1, 1 dose, On 09/14/14 at 2215, STAT 2222 (Given - Provid er: Fausto Lopez RN) oxyCODONE-acetaminophen (PERCOCET) 5-325 mg per tablet 1 Tab (COMPLETED) 1 Tablet, oral, NOW X1, 1 dose, On 09/14/14 at 2000, STAT 2006 (Given - Provid er: Sharon Comer RN) documented in this encounter Care Teams Clinical Trial Assistant Relationship Specialty Start Date End Date Emigdio Centeno MD [address] [place] [id number] PCP - General 09/14/14 07/30/15 documented as of this encounter
--- OUTSIDE RECORDS SUMMARY | 2024-11-22 17:32 | XMS_ITS | Encounter Summary ---
Author Organization [facility] Address [address] [place] [address] Care Team Providers Care Presidential Helicopter Crew Chief Name Role Phone Unavailable Primary Care Provider Unavailabl e Encounter Details Date Type Department Care Team (Late st Contact Info) Description 04/18/2002 Results Only [facility] [address] [place] [address] Marino Connors MD [address] [facility] [address] [phone] Social History Tobacco Use Types Packs/Day Years Used Date Smoking Tobacco: Never Assessed Comments Unknown Sex and Gender Information Value Date Recorded Sex Assigned at Female 03/01/2024 9:25 EDT Legal Sex Female 18:05 EST Gender Identity Female 10/03/2019 16:15 EST Sexual Orientation Not on file documented as of this encounter Plan of Treatment Upcoming Encounters Date Type Department Care Team (Late st Contact Info) Description 01/04/2025 13:00 EST Office Visit [facility] Ophthalmology - [place] [address], [place] [address] Gagandeep Rome MD [address] [facility], [address] [place] [phone] 02/11/2025 13:30 EDT Telemedicine [facility] H[facility]ology & Oncology - [facility] [address] [place] [address] Dana Padilla MD [address] [facility], [address] [place] [phone] documented as of this encounter Procedures Procedure Name Priority Date/Time Associated Diagnosis Comments CYTOPATHOLOGY Routine 04/18/2002 0:00 EDT documented in this encounter Results * CYTOPATHOLOGY (04/18/2002 0:00 EDT) Pathology Report: CYTOPATHOLOGY REPORT Reports generated via electronic interface contain original data; however they are lacking the format of the original report. Caution should be taken when reading/interpreti ng unformatted reports. Name: ? RISSA YUN ? Accession #: ? [id number] : ? 1960 (Age: 41) ??F ?Collect Date: ? 04/18/2002 Location: ? [facility] ? Receive Date: ? 04/19/2002 Provider: ? VIKTORIA WAGNER MD Copy to: ?SHERIF BRUSH MD ? CYTOLOGIC DIAGNOSIS: ? Urine, cytologic evaluation: - No malignant cells identified. ?? Document reviewed and electronically signed by: ? Stacey Kohler MD Report Date: ??04/19/2002 16:46 By the signature above, the attending physician certifies that he/she has personally conducted a gross and/or microscopic examination of the described specimens and rendered or confirmed the above diagnosis. Specimen Type: ? Urine, NOS Clinical History: ? UTI. ? Gross Description: ? 40cc of cloudy brown fluid was received and processed. ? End of Report AGATA AHUJA 04/18/2002 04/19/2002 8:3 9 EDT us Marino Connors MD PATHOLOGY ORDERABLES Final R esult AGATA AHUJA [address] [place] [address] documented in this encounter Visit Diagnoses Not on filedocumented in this encounter
--- OUTSIDE RECORDS SUMMARY | 2024-11-22 17:32 | XMS_ITS | Encounter Summary ---
Author Organization [facility] Address [address] [place] [address] Care Team Providers Care Matcher Offbearer Name Role Phone Unavailable Primary Care Provider Unavailabl e Encounter Details Date Type Department Care Team (Late st Contact Info) Description 07/05/2014 Results Only Imaging [facility]- [facility] [phone] Emigdio Centeno MD [address] [place] [id number] Social History Tobacco Use Types Packs/Day Years [...] Visit [facility] Ophthalmology - [address] [address] Gagandeep Rome MD [address] [place] [address], [address] [place] [phone] 02/11/2025 13:30 EDT Telemedicine [facility] Hematology & Oncology - [address] [address] Dana Padilla MD [address] [facility], [facility], [address] [place] [phone] documented as of this encounter Visit Diagnoses Not on filedocumented in this encounter
--- OUTSIDE RECORDS SUMMARY | 2024-11-22 17:32 | XMS_ITS | Encounter Summary ---
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 Thao Basurto MD HEMATOLOGY & PF4 ORDERABLES Final Result Performing Organization Address City/State/[facility] Co de Phone Number [facility] [address] [place] [address] * (ABNORMAL) HEMAGRAM AND DIFFERENTIAL (12/10/2014 17:27 EST) WBC 2.16(L) 4.0 - 12.4 K/cmm 12/10/2014 18:30 [facility] RBC 4.44 3.86 - 5.04 M/cmm 12/10/2014 17:52 [facility] Hemoglobin 12.6 11.6 - 15.2 gm/dl 12/10/2014 17:52 [facility] HCT 38.1 34.9 - 44.4 % 12/10/2014 17:52 [facility] MCV 86 81 - 98 fl 12/10/2014 17:52 [facility] MCH 28.3 26.7 - 33.3 pg 12/10/2014 17:52 [facility] MCHC 33.1 32.1 - 35.9 gm/dl 12/10/2014 17:52 [facility] RDW-CV 14.7(H) 11.7 - 14.6 % 12/10/2014 17:52 [facility] RDW-SD 45.5 37.6 - 50.3 fl 12/10/2014 17:52 [facility] PLT 66(L) 141 - 320 K/cmm 12/10/2014 18:30 [facility] MPV 8.2 7.5 - 11.2 fl 12/10/2014 18:30 [facility] % Neutrophils 73.7 45.5 - 79.7 % 12/10/2014 18:30 [facility] % Lymphocytes 15.2 15.0 - 46.8 % 12/10/2014 18:30 [facility] % Monocytes 8.6 1.8 - 12.0 % 12/10/2014 18:30 [facility] % Eosinophils 1.9 0.6 - 6.9 % 12/10/2014 18:30 [facility] % Basophils 0.6 0.2 - 1.4 % 12/10/2014 18:30 [facility] ABS Neutrophils 1.59(L) 2.20 - 8.85 K/[facility] 12/10/2014 18:30 [facility] ABS Lymphs 0.33(L) 1.09 - 3.30 K/[facility] 12/10/2014 18:30 [facility] ABS Monocytes 0.19 0.1 - 0.8 K/cmm 12/10/2014 18:30 [facility] ABS Eosinophils 0.04 0.03 - 0.61 K/cmm 12/10/2014 18:30 [facility] ABS Basophils 0.01 0.01 - 0.11 K/cmm 12/10/2014 18:30 [facility] Type of Diff: Automated 12/10/2014 18:30 [facility] Blood specimen (specimen) BLOOD SPECIMEN / Unknown 12/10/2014 17:27 EST 12/10/2014 17:40 EST us Thao Basurto MD PACKAGES & DNA PROBE ORDERA BLES Final Result [facility] [address] [place] [address] * ELECTROLYTES (12/10/2014 17:27 EST) Sodium 140 136 - 145 mEq/L 12/10/2014 17:56 [facility] Potassium 4.1 3.5 - 5.0 mEq/L 12/10/2014 17:56 [facility] Chloride 102 96 - 110 mEq/L 12/10/2014 17:56 [facility] CO2 31 24 - 32 mEq/L 12/10/2014 17:56 [facility] Blood specimen (specimen) BLOOD SPECIMEN / Unknown 12/10/2014 17:27 EST 12/10/2014 17:40 EST Thao Basurto MD CHEMISTRY & BLOOD GAS ORDER YANN Final Result [facility] [address] [place] [address] * CREATININE (12/10/2014 17:27 EST) Creatinine 0.72 0.52 - 1.04 mg/dl 12/10/2014 17:56 [facility] GFR, Calculated >60 >60 ml/min/1.7 3m2 12/10/2014 17:56 [facility] Blood specimen (specimen) BLOOD SPECIMEN / Unknown 12/10/2014 17:27 EST 12/10/2014 17:40 EST us Thao Basurto MD CHEMISTRY & BLOOD GAS ORDER YANN Final Result [facility] [address] [place] [address] * SCREENING GLUCOSE (12/10/2014 17:27 EST) Glucose, Screening 83 70 - 100 mg/dl 12/10/2014 17:56 [facility] Blood specimen (specimen) BLOOD SPECIMEN / Unknown 12/10/2014 17:27 EST 12/10/2014 17:40 EST hTao Basurto MD CHEMISTRY & BLOOD GAS ORDER YANN Final Result [facility] [address] [place] [address] * (ABNORMAL) BUN (12/10/2014 17:27 EST) BUN 8(L) 10 - 26 mg/dl 12/10/2014 17:56 EST [facility] Blood specimen (specimen) BLOOD SPECIMEN / Unknown 12/10/2014 17:27 EST 12/10/2014 17:40 EST us Thao Basurto MD CHEMISTRY & BLOOD GAS ORDER YANN Final Result [facility] [address] [place] [address] * EKG 12-LEAD (12/10/2014 17:23 EST) 12/10/2014 17:2 3 EST Narrative [facility] EKG - 12/12/2014 12:26 EST ?[facility] Emergency ? Test Date: ?2014-12-10 Pat Name: ? PHYLISS BOOTHE ?Department: ?? ED ? Room: ? AC17 Gender: ? F ?Multiple Drum Sander: ?? [id number] : ?1960 ? Requested By: THAO BASURTO MD Order Number: [id number] ? Jose PHIPPS: ?? LAURENT MACK MD ? Measurements Intervals ?[place] ? Rate: ? 64 ? P: ?55 IA: ? 145 ?QRS: ?53 QRSD: ? 95 ? T: ?39 QT: ? 441 ? QTc: ?458 ? Interpretive Statements SINUS RHYTHM diffuse nonspecific ST and T wave abnormalities No previous ECG available for comparison I reviewed the tracing and have either agreed or edited the findings in this report. Electronically Signed On 12-12-14 12:26:05 EST by LAURENT MACK MD. Procedure Note Laurent Mack MD - 12/12/2014 [facility] Test Date: 2014-12-10 Pat Name: TARA BOOTHE Department: ED Room: [facility] Gender: F Multiple Drum Sander: [id number] : 1960 Requested By: THAO BASURTO MD Order Number: [id number] Reading MD: LAURENT SEVILLA Measurements Intervals [place] Rate: 64 P: 55 IA: 145 QRS: 53 QRSD: 95 T: 39 QT: 441 QTc: 458 Interpretive Statements SINUS RHYTHM diffuse nonspecific ST and T wave abnormalities No previous ECG available for comparison I reviewed the tracing and have either agreed or edited the findings inthis report. Electronically Signed On 12-12-14 12:26:05 EST by ERVIN PHIPPS. us Thao Basurto MD CARDIAC ECG ORDERABLES Pricila suri Result [facility] EKG documented in this encounter Visit Diagnoses Diagnosis Syncope- Primary Syncope and collapse Dehydration Back pain Backache, unspecified documented in this encounter Administered Medications Inactive Administered Medications - up to 3 most recent administrations Medication Order MAR Action Action Date Dose Rate Site HYDROmorphone (PF) (DILAUDID) 1 mg/mL injection 0.5 mg 0.5 mg, intravenous, NOW X1, 1 dose, On Tue12/10/14 at 1815, STAT Given 12/10/2014 18:05 EST 0.5 mg HYDROmorphone (PF) (DILAUDID) 1 mg/mL injection 0.5 mg 0.5 mg, intravenous, NOW X1, 1 dose, On Tue12/10/14 at 1830, STAT Given 12/10/2014 18:28 EST 0.5 mg HYDROmorphone (PF) (DILAUDID) 1 mg/mL injection 1 dose, Starting on Tue12/10/14 at 1800, Until Tue12/10/14 at 1805 ondansetron (PF) (ZOFRAN) injection 4 mg 4 mg, intravenous, NOW X1, 1 dose, On Tue12/10/14 at 1745, STAT Given 12/10/2014 17:37 EST 4 mg oxyCODONE (ROXICODONE) immediate release tablet 10 mg 10 mg, oral, NOW X1, 1 dose, On Tue12/10/14 at 2200, STAT Given 12/10/2014 22:05 EST 10 mg sodium chloride 0.9 % BOLUS 1,000 mL 1,000 mL, intravenous, NOW X1, 1 dose, On Tue12/10/14 at 1800, STAT Given 12/10/2014 18:05 EST 1,000 mL sodium chloride 0.9 % BOLUS 1,000 mL 1,000 mL, intravenous, Once (Without Time Specified), 1 dose, Starting on Tue12/10/14 at 2159, Until Tue12/10/14 at 2248, STAT Given 12/10/2014 22:06 EST 1,000 mL documented in this encounter Active and Recently Administered Medications Times are shown in EST. Scheduled Medication Order 12/08/2014 12/09/2014 12/10/2014 HYDROmorphone (PF) (DILAUDID) 1 mg/mL injection 0.5 mg (COMPLETED) 0.5 mg, intravenous, NOW X1, 1 dose, On Tue12/10/14 at 1815, STAT 1805 (Given - Provid er: Terra Reis RN) HYDROmorphone (PF) (DILAUDID) 1 mg/mL injection 0.5 mg (COMPLETED) 0.5 mg, intravenous, NOW X1, 1 dose, On Tue12/10/14 at 1830, STAT 1828 (Given - Provid er: Terra Reis RN) ondansetron (PF) (ZOFRAN) injection 4 mg (COMPLETED) 4 mg, intravenous, NOW X1, 1 dose, On Tue12/10/14 at 1745, STAT 1737 (Given - Provid er: Terra Reis RN) oxyCODONE (ROXICODONE) immediate release tablet 10 mg (COMPLETED) 10 mg, oral, NOW X1, 1 dose, On Tue12/10/14 at 2200, STAT 2205 (Given - Provid er: Terra Reis RN) sodium chloride 0.9 % BOLUS 1,000 mL (COMPLETED) 1,000 mL, intravenous, NOW X1, 1 dose, On Tue12/10/14 at 1800, STAT 1805 (Given - Provid er: Terra Reis RN)1833 (Completed - Provider: Terra Reis RN) sodium chloride 0.9 % BOLUS 1,000 mL (COMPLETED) 1,000 mL, intravenous, Once (Without Time Specified), 1 dose, Starting on Tue12/10/14 at 2159, Until Tue12/10/14 at 2248, STAT 2206 (Given - Provid er: Terra Reis RN)2248 (Completed - Provider: Terra Reis RN) documented in this encounter Orders Nursing Count Last Ordered Date First Orde red Date ORTHOSTATIC VITAL SIGNS 1 12/10/2014 documented in this encounter Care Teams Audio Operator Relationship Specialty Start Date End Date Emigdio Centeno MD [address] [place] [address] PCP - General 09/14/14 07/30/15 documented as of this encounter
--- OUTSIDE RECORDS SUMMARY | 2024-11-22 17:32 | XMS_ITS | Encounter Summary ---
Author Organization [facility] Address [address] [place] [address] Care Team Providers Care Production Assistant Name Role Phone Emigdio Centeno MD Primary Care Provider [phone] Jyaden Tijerina MD Primary Care Provider [phone] Reason for Visit * Reason Onset Date Comments Returning Call 05/27/2015 Encounter Details Date Type Department Care Team (Late st Contact Info) Description 05/27/2015 Telephone [facility] Cardiology [place] [address] [place] [address] Emigdio Centeno MD [address] [place] [address] [phone] Returning Call Social History Tobacco Use Types [...] encounter Miscellaneous Notes * Telephone Encounter - Emma Beasley - 05/27/2015 0040 EDT Reason for Call: Returning Call Summary/Symptoms: Pt returning call to schedule stress test. Please call. Onset and Duration? n/a Emma Beasley 05/27/2015 16:27 documented in this encounter Plan of Treatment Upcoming Encounters Date Type Department Care Team (Late st Contact Info) Description 01/04/2025 13:00 EST Office Visit [facility] Ophthalmology - [address] [id number] Gagandeep Rome MD [address] [place] [address] [address] [place] [phone] 02/11/2025 13:30 EDT Telemedicine [facility] Hematology & Oncology [address] [phone] Dana Padilla MD [address] [place] [address] [address] [place] [phone] documented as of this encounter Visit Diagnoses Not on filedocumented in this encounter Care Teams Production Assistant Relationship Specialty Start Date End Date Emigdio Centeno MD [address] [place] [address] PCP - General 09/14/14 07/30/15 Jayden Tijerina MD [address] [place] [address] PCP - General 07/31/15 01/02/17 documented as of this encounter
--- OUTSIDE RECORDS SUMMARY | 2024-11-22 17:32 | XMS_ITS | Encounter Summary ---
Author Organization [facility] [address] [place] [address] Care Team Providers Care Needle Loom Operator Helper Name Role Phone Alma Farfan MD Primary Care Provider [phone] Encounter Details Date Type Department Care Team (Late st Contact Info) Description 06/05/2024 Interpretation Only Radiology Library at [facility] [place] [phone] Mat Iglesias MD [facility] [place] [address] Social History Tobacco Use Types Packs/Day Years Used Date Smoking Tobacco: Never Assessed Sex and Gender Information Value Date Recorded Sex Assigned at Not on file Gender Identity Not on file Sexual Orientation Not on file documented as of this encounter Plan of Treatment Upcoming Encounters Date Type Department Care Team (Late st Contact Info) Description 11/29/2024 1:30 PM EST Appointment XRay at [address] [place] [phone] Laurent Cabrera MD [facility] [place] [address] 11/29/2024 2:20 PM EST Office Visit Orthopaedics at [facility] [place] [phone] Laurent Cabrera MD [facility] [place] [address] documented as of this encounter Procedures Procedure Name Priority Date/Time Associated Diagnosis Comments FILM LIBRARY STORAGE ONLY CT CHEST Routine 06/05/2024 9:45 AM EDT documented in this encounter Results * Film Library- Storage Only CT Chest (06/05/2024 9:45 AM EDT) 07/12/2024 2:42 AM EDT Narrative RAD - 07/12/2024 2:42 AM EDT This exam is auto-finalizing. It's purpose is for storage only. Mat Iglesias MD IMG FILM LIBRARY ORD ERABLES [place], [place] documented in this encounter Visit Diagnoses Not on filedocumented in this encounter Care Teams Needle Loom Operator Helper Relationship Specialty Start Date End Date Alma Farfan MD [address] [place] [phone] PCP - General Family Medicine 04/06/19 11/04/24 documented as of this encounter
--- OUTSIDE RECORDS SUMMARY | 2024-11-22 17:32 | XMS_ITS | Encounter Summary ---
Author Organization [facility] Address [address] [place] [address] Care Team Providers Care Inspector Name Role Phone Emigdio Centeno MD Primary Care Provider [phone] Reason for Visit * Reason Comments Medical Evaluation I passed out again, I can't keep nothing, diarrhea all night upper right abd pain, +N/V, + fever, + chills Encounter Details Date Type Department Care Team (Late st Contact Info) Description 03/24/2015 15:24 EDT - 03/24/2015 20:51 EDT Emergency [facility] Emergency Department - [address] [id number] Jayden Oconnor MD [address] [place] [address], Level 1 [place] [address] Emergency, MD Rolando Nausea, vomiting, and diarrhea (Primary Dx); Acute febrile illness Discharge Disposition: Home or Self Care Social [...] Reading Time Taken Comments Blood Pressure 130/60 03/24/20152046 EDT Pulse 81 03/24/20152046 EDT Temperature 37.9 ??C (100.2 ??F) 03/24/2015 1835 EDT Respiratory Rate 16 03/24/20152046 EDT Oxygen Saturation 98% 03/24/20152046 EDT Inhaled Oxygen Concentration - - Weight 98.9 kg (218 lb) 03/24/2015 153 EDT Height 165.1 cm (5' 5) 03/24/2015 153 EDT Body Mass Index 36.28 03/24/2015 1538 EDT documented in this encounter Discharge Instructions * Discharge Instructions* Jayden Oconnor IV, MD - 03/24/2015 20:24 EDT Please seek re-evaluation for worsening symptoms. Keep hydrated. Judicious use of tylenol (once or twice per day) in the short-term is acceptable. Due to your co-morbidities, please seek re-evaluation if symptoms are not improving. The cause of your symptoms at this time may be virally mediated butthis remains unclear. Blood cultures are pending. You will be notified and asked to return if your cultures are positive. documented in this encounter Medications at Time [...] documented in this encounter ED Notes * Anthony Ortez RN - 03/24/20152050 EDT Pt d/c ambulatory with a normal gait and in NAD. Pt d/c with family. Pt provided with instructions.Resp unlabored. Skin warm and dry. Pt AO. * Spring Liu RN - 03/24/20152010 EDT Pt ambulatory to BR with steady gait. * Chaparrita Tinajero RN - 03/24/2015 1834 EDT Pt ambulatory to bathroom. * Chaparrita Tinajero RN - 03/24/2015 1721 EDT Nasopharyngeal swab sent for flu. * Jayden Oconnor IV, MD - 03/24/2015 1656 EDT DOS: 03/24/2015 Chief Complaint Patient presents with ??? Medical Evaluation I passed out again, I can't keep nothing, diarrhea all night upper right abd pain, +N/V, + fever,+ chills The patient is a 54 y.o. female who presents today with Medical Evaluation HPI Comments: 03/24/2015 16:00 Tara Yun is a 54 y.o. female with a history of Hernia repair, Appendectomy, Cholecystectomy and Hysterectomy who presents to the ED after overnight onset of vomiting, diarrhea, dizziness, light headedness, coughing, and BRIGHT. Vomiting preceded diarrhea. Patient reports she was felling asymptomatic until one day ago. She reports waking up feeling weak and light headed. She also reports she was walking from her bedroom to the bathroom and experienced an episode of syncope, but was able to get up on her own. She says her last episode of vomiting was this morning and last episode of diarrheawas a few hours ago. She reports she took all of her normal medications last night prior to bed. The history is provided by the patient. Near Syncope Episode history: Single Most recent episode: Today Context: standing up Relieved by: Nothing Ineffective treatments: None tried Associated symptoms: dizziness, fever, headaches and vomiting Review of Systems Constitutional: Positive for fever. Cardiovascular: Positive for syncope. Gastrointestinal: Positive for vomiting. Neurological: Positive for dizziness and headaches. All other systems reviewed and are negative. [...] Smoker -- 0.50 packs/day ??? Smokeless tobacco: Never Used ??? Alcohol Use: No No family history on file. Vital Signs Temp: 37.9 ??C (100.2 ??F) Temp src: Oral Pulse: 81 Heart Rate: 101 BPM Resp: 16 SpO2: 98 % BP: 130/60 mmHg BP Device: BP Machine Patient Position: Sitting BP Cuff Location: Left arm O2 Device: None (Room air) Physical Exam Constitutional: She is oriented to person, place, and time. She appears well- developed. No distress. HENT: Head: Normocephalic and atraumatic. Eyes: Pupils are equal, round, and reactive to light. Neck: Neck supple. Cardiovascular: Normal rate and intact distal pulses. Pulmonary/Chest: Effort normal. No respiratory distress. Abdominal: Soft. She exhibits no distension and no mass. There is no tenderness (No focal tenderness. ). Scar tissue. Musculoskeletal: She exhibits no edema. Neurological: She is alert and oriented to person, place, and time. Skin: Skin is warm. Psychiatric: She has a normal mood and affect. Nursing note and vitals reviewed. Radiology orders: CHEST PA AND LATERAL Imaging Results CHEST PA AND LATERAL (Final result) Result time: 03/24/15 17:20:40 Final result Narrative: CHEST PA AND LATERAL 03/24/2015 5:13 PM Signs and Symptoms/Comments: cough, fever Comparison: None Findings: Frontal and lateral views of the chest show a prominent cardiomediastinal silhouette. The pulmonary vasculature is normal. The lungs are clear. There is no pleural effusion or pneumothorax. There is a large air-fluid level in the upper abdomen visible on the lateral view potentially due to a distended stomach. No orders to display . Procedures Pt had xrays that were obtained, reviewed, and interpreted by myself in conjunction with the radiologist. Please see radiology report for further details. CXR shows no infiltrate, pleural effusions or PNM, but stomach appears distended. Pt had lab studies that were obtained, reviewed and interpreted by myself. Please see laboratory results for further details. Lab results indicative of chronically low white blood count (2.42). ED Course: A medical screening exam was performed. 54 y/o female with abdominal surgical history presents to the ED with complaints of overnight vomiting, diarrhea, BRIGHT, dizziness and light headedness. Patient reports an episode of syncope.Ordered CBC, glucose, lactic acid, blood bacterial culture and CXR for further evaluation. Patient febrile in ED. Given Tylenol and electrolyte solution (two liters) for symptomatic management. Patient monitored for blood pressure and temperature due to her comorbidities. Vital signs returnedto normal and patients fever broke. Patient discharged home. Advised to continue fluids and return if symptoms reoccur. Disposition: Discharged The patient's pain was managed to an adequate level weighing risk vs. benefit of further medications. Upon departure from the Emergency Department, the patient's pain was 0 on a zero to ten scale. Condition at departure from the Emergency Department: Stable ED Current Prescriptions None MDM Number of Diagnoses or Management Options Acute febrile illness: Nausea, vomiting, and diarrhea: Diagnosis management comments: 4 Final diagnoses: Nausea, vomiting, and diarrhea Acute febrile illness PCP: Emigdio Centeno MD This documentation is recorded by Josette Partida acting as Scribe under the direction and presence of Jayden Oconnor IV,*. Jayden Oconnor IV,*: I personally performed the services recorded by the scribe in my presence. I confirm the scribe's documentation has been reviewed by me to accurately and completely record my work, treatment, procedures, and medical decision making. 03/25/2015 0:26 No flowsheet data found. * Chaparrita Tinajero RN - 03/24/2015 1615 EDT Blood drawn via saline lock per protocol, rainbow and cultures tube(s) sent to lab per order. PIV pulled as it would not flush after blood draw. * Chaaprrita Tinajero RN - 03/24/2015 1610 EDT Blood drawn via saline lock per protocol, cultures tube(s) sent to lab per order. * Leo Carney RN - 03/24/2015 1537 EDT Chief Complaint Patient presents with ??? Medical Evaluation I passed out again, I can't keep nothing, diarrhea all night upper right abd pain, +N/V, + fever,+ chills + SOB, generalized body aches 15:51 patient c/o of lightheadedness, patient appears ill documented in this encounter Plan of Treatment Upcoming Encounters Date Type Department Care Team (Late st Contact Info) Description 01/04/2025 13:00 EST Office Visit [facility] Ophthalmology - [address] [id number] Gagandeep Rome MD [address] [facility], Level 5 [place] [phone] 02/11/2025 13:30 EDT Telemedicine [facility] Hematology & Oncology - [address] [phone] Dana Padilla MD [address] [place] [address], [address] 2 [place] [phone] documented as of this encounter Procedures Procedure Name Priority Date/Time Associated Diagnosis Comments CHEST PA AND LATERAL STAT 03/24/2015 17:13 EDT RESPIRATORY VIRUS DETECTION Routine 03/24/2015 17:05 EDT BACTERIAL CULTURE, BLOOD STAT 03/24/2015 15:58 EDT BACTERIAL CULTURE, BLOOD STAT 03/24/2015 15:58 EDT HOLD BLUE TOP STAT 03/24/2015 15:58 EDT LACTIC ACID STAT 03/24/2015 15:58 EDT COMPLETE BLOOD COUNT AND DIFFERENTIAL STAT 03/24/2015 15:58 EDT BUN STAT 03/24/2015 15:58 EDT LIPASE STAT 03/24/2015 15:58 EDT GLUCOSE, SERUM STAT 03/24/2015 15:58 EDT CREATININE STAT 03/24/2015 15:58 EDT HEPATIC FUNCTION PANEL (ALB,ALK PHOS,ALT,AST,DBIL,TOT LUIS,TOT PROT) STAT 03/24/2015 15:58 EDT ELECTROLYTES STAT 03/24/2015 15:58 EDT BLOOD BANK HOLD STAT 03/24/2015 15:55 EDT documented in this encounter Results * CHEST PA AND LATERAL (03/24/2015 17:13 EDT) Anatomical Region Laterality Modality Other 03/24/2015 17:1 3 EDT 03/24/2015 17:20 EDT Narrative 03/24/2015 17:20 EDT CHEST PA AND LATERAL ??03/24/2015 5:13 PM Signs and Symptoms/Comments: ?? cough, fever Comparison: None Findings: Frontal and lateral views of the chest show a prominent cardiomediastinal silhouette. The pulmonary vasculature is normal. The lungs are clear. There is no pleural effusion or pneumothorax. There is a large air-fluid level in the upper abdomen visible on the lateral view potentially due to a distended stomach. Procedure Note Eugenia Lopez MD - 03/24/2015 CHEST PA AND LATERAL 03/24/2015 5:13 PM Signs and Symptoms/Comments: cough, fever Comparison: None Findings: Frontal and lateral views of the chest show a prominent cardiomediastinal silhouette. The pulmonary vasculature is normal. The lungs are clear. There is no pleural effusion or pneumothorax. There is a large air-fluid level in the upper abdomen visible on the lateral view potentially due to a distended stomach. us Jayden Oconnor MD IMG DIAGNOSTIC IMAGI NG ORDERABLES Final Result * RESPIRATORY VIRUS DETECTION (03/24/2015 17:05 EDT) Result No RSV, Influenza A, or Influenza B detected by PCR and [employer]. 03/24/2015 20:04 EDT [facility] NASOPHARYNGEAL STRUCTURE / Unknown 03/24/2015 17:05 EDT 03/24/2015 17:26 EDT us Jayden Oconnor MD MICROBIOLOGY - GENER AL ORDERABLES Final Result [facility] [address] [place] [address] * LIPASE (03/24/2015 15:58 EDT) Lipase 34 <251 U/L 03/24/2015 16:54 EDT [facility] Blood specimen (specimen) BLOOD SPECIMEN / Unknown 03/24/2015 15:58 EDT 03/24/2015 16:29 EDT us Jayden Oconnor MD CHEMISTRY & BLOOD GA S ORDERABLES Final Result Performing Organization Address City/[facility] Co de Phone Number [facility] [address] [place] [address] * HEPATIC FUNCTION PANEL (ALB,ALK PHOS,ALT,AST,DBIL,TOT LUIS,TOT PROT) (03/24/2015 15:58 EDT) Albumin 3.7 3.4 - 4.9 g/dl 03/24/2015 16:54 T [facility] Total Protein 6.7 6.5 - 8.3 g/dl 03/24/2015 16:54 [facility] Total Alkaline Phosphatase 76 38 - 126 U/L 03/24/2015 16:54 [facility] ALT 29 <53 U/L 03/24/2015 16:54 [facility] AST 33 15 - 46 U/L 03/24/2015 16:54 [facility] Unconjugated Bilirubin 0.9 0.0 - 1.1 mg/dl 03/24/2015 16:54 [facility] Conjugated Bilirubin 0.0 0.0 - 0.3 mg/dl 03/24/2015 16:54 [facility] Bilirubin, Total 1.1 <1.4 mg/dl 03/24/20 15 16:54 T [facility] Blood specimen (specimen) BLOOD SPECIMEN / Unknown 03/24/2015 15:58 EDT 03/24/2015 16:29 EDT us Jayden Oconnor MD CHEMISTRY & BLOOD GA S ORDERABLES Final Result Performing Organization Address City/[facility]/ZIP Co de Phone Number [facility] [address] [place] [address] * HOLD BLUE TOP (03/24/2015 15:58 EDT) Hold Blue Top Sample for coagulation will be discarded after 4 hours 03/24/2015 16:50 EDT [facility] Blood specimen (specimen) BLOOD SPECIMEN / Unknown 03/24/2015 15:58 EDT 03/24/2015 16:29 EDT us Jayden Oconnor MD LAB INFO SERVICE AND SUPPORT & PHONE RESULT Final Result Performing Organization Address City/[facility]/ZIP Co de Phone Number [facility] [address] [place] [address] * BACTERIAL CULTURE, BLOOD (03/24/2015 15:58 EDT) Result No growth 03/29/2015 12:13 EDT [facility] Blood specimen (specimen) BLOOD SPECIMEN / Unknown 03/24/2015 15:58 EDT 03/24/2015 16:59 EDT Comment:Left~Hand us Jayden Oconnor MD MICROBIOLOGY - GENER AL ORDERABLES Final Result Performing Organization Address City/[facility]/ZIP Co de Phone Number [facility] [address] [place] [address] * BACTERIAL CULTURE, BLOOD (03/24/2015 15:58 EDT) Result No growth 03/29/2015 12:13 EDT [facility] Blood specimen (specimen) BLOOD SPECIMEN / Unknown 03/24/2015 15:58 EDT 03/24/2015 16:59 EDT Comment:Left~Antecubital us Jayden Oconnor MD MICROBIOLOGY - GENER AL ORDERABLES Final Result [facility] [address] [place] [address] * (ABNORMAL) LACTIC ACID (03/24/2015 15:58 EDT) Lactic Acid 2.5(H) 0.7 - 2.1 mmol/L 03/24/2015 16:53 EDT [facility] Blood specimen (specimen) BLOOD SPECIMEN / Unknown 03/24/2015 15:58 EDT 03/24/2015 16:29 EDT us Jayden Oconnor MD CHEMISTRY & BLOOD GA S ORDERABLES Final Result Performing Organization Address City/[facility]/ZIP Co de Phone Number [facility] [address] [place] [address] * (ABNORMAL) HEMAGRAM AND DIFFERENTIAL (03/24/2015 15:58 EDT) Pathologist [facility] WBC 2.42(L) 4.0 - 12.4 K/cmm 03/24/2015 16:45 [facility] RBC 4.72 3.86 - 5.04 M/cmm 03/24/2015 16:45 [facility] Hemoglobin 13.2 11.6 - 15.2 gm/dl 03/24/2015 16:45 [facility] HCT 39.7 34.9 - 44.4 % 03/24/2015 16:45 [facility] MCV 84 81 - 98 fl 03/24/2015 16:45 [facility] MCH 28.0 26.7 - 33.3 pg 03/24/2015 16:45 [facility] MCHC 33.3 32.1 - 35.9 gm/dl 03/24/2015 16:45 [facility] RDW-CV 15.5(H) 11.7 - 14.6 % 03/24/2015 16:45 [facility] RDW-SD 46.8 37.6 - 50.3 fl 03/24/2015 16:45 [facility] PLT 60(L) 141 - 320 K/cmm 03/24/2015 16:45 [facility] MPV 8.2 7.5 - 11.2 fl 03/24/2015 16:45 [facility] % Neutrophils 82.8(H) 45.5 - 79.7 % 03/24/2015 16:45 [facility] % Lymphocytes 6.1(L) 15.0 - 46.8 % 03/24/2015 16:45 [facility] % Monocytes 10.3 1.8 - 12.0 % 03/24/2015 16:45 [facility] % Eosinophils 0.3(L) 0.6 - 6.9 % 03/24/2015 16:45 [facility] % Basophils 0.5 0.2 - 1.4 % 03/24/2015 16:45 [facility] ABS Neutrophils 2.00(L) 2.20 - 8.85 K/cm 03/24/2015 16:45 [facility] ABS Lymphs 0.15(L) 1.09 - 3.30 K/cm 03/24/2015 16:45 [facility] ABS Monocytes 0.25 0.1 - 0.8 K/cmm 03/24/2015 16:45 [facility] ABS Eosinophils 0.01(L) 0.03 - 0.61 K/cmm 03/24/2015 16:45 [facility] ABS Basophils 0.01 0.01 - 0.11 K/cm 03/24/2015 16:45 [facility] Type of Diff: Automated 03/24/2015 16:45 [facility] Blood specimen (specimen) BLOOD SPECIMEN / Unknown 03/24/2015 15:58 EDT 03/24/2015 16:29 EDT us Jayden Oconnor MD PACKAGES & DNA PROBE ORDERABLES Final Result [facility] [address] [place] [address] * (ABNORMAL) GLUCOSE, SERUM (03/24/2015 15:58 EDT) Glucose, Serum 116(H) 70 - 100 mg/dl 03/24/2015 16:54 EDT [facility] Blood specimen (specimen) BLOOD SPECIMEN / Unknown 03/24/2015 15:58 EDT 03/24/2015 16:29 EDT us Jayden Oconnor MD CHEMISTRY & BLOOD GA S ORDERABLES Final Result [facility] [address] [place] [address] * ELECTROLYTES (03/24/2015 15:58 EDT) Sodium 143 136 - 145 mEq/L 03/24/2015 16:54 EDT [facility] Potassium 3.7 3.5 - 5.0 mEq/L 03/24/2015 16:54 EDT [facility] Chloride 104 96 - 110 mEq/L 03/24/2015 16:54 EDT [facility] CO2 30 24 - 32 mEq/L 03/24/2015 16:54 EDT [facility] Blood specimen (specimen) BLOOD SPECIMEN / Unknown 03/24/2015 15:58 EDT 03/24/2015 16:29 EDT us Jayden Oconnor MD CHEMISTRY & BLOOD GA S ORDERABLES Final Result [facility] [address] [place] [address] * CREATININE (03/24/2015 15:58 EDT) Creatinine 0.68 0.52 - 1.04 mg/dl 03/24/2015 16:54 EDT [facility] GFR, Calculated >60 >60 ml/min/1.7 3m2 03/24/2015 16:54 EDT [facility] Blood specimen (specimen) BLOOD SPECIMEN / Unknown 03/24/2015 15:58 EDT 03/24/2015 16:29 EDT us Jayden Oconnor MD CHEMISTRY & BLOOD GA S ORDERABLES Final Result Performing Organization Address [facility] Co de Phone Number [facility] [address] [place] [address] * BUN (03/24/2015 15:58 EDT) BUN 15 10 - 26 mg/dl 03/24/2015 16:54 EDT [facility] Blood specimen (specimen) BLOOD SPECIMEN / Unknown 03/24/2015 15:58 EDT 03/24/2015 16:29 EDT us Jayden Oconnor MD CHEMISTRY & BLOOD GA S ORDERABLES Final Result Performing Organization Address [facility] de Phone Number [facility] [address] [place] [address] * BLOOD BANK SPECIMEN HOLD (03/24/2015 15:55 EDT) Hold BB Spec will exp at 23:59, 3 days from collect date [facility] Comment:SAMPLE DRAWN 03/24/15 EXP 03/27/15 @ 23:59 Blood specimen (specimen) 03/24/2015 15:55 EDT us Jayden Oconnor MD BLOOD BANK TESTS Fin al Result Performing Organization Address [facility] Co de Phone Number [facility] [address] [place] [phone] documented in this encounter Visit Diagnoses Diagnosis Nausea, vomiting, and diarrhea- Primary Diarrhea Acute febrile illness Fever, unspecified documented in this encounter Administered Medications Inactive Administered Medications - up to 3 most recent administrations Medication Order MAR Action Action Date Dose Rate Site acetaminophen (TYLENOL) tablet 1,000 mg 1,000 mg, oral, NOW X1, 1 dose, On 03/24/15 at 1700, STAT Given 03/24/2015 17:21 EDT 1,000 mg electrolyte-R (NORMOSOL-R) solution BOLUS solution 2,000 mL 2,000 mL, intravenous, NOW X1, 1 dose, On Tue03/24/15 at 1600 Given 03/24/2015 16:40 EDT 2,000 mL electrolyte-R (NORMOSOL-R) solution at 200 mL/hr, intravenous, CONTINUOUS, Starting on Tue03/24/15 at 1900, Until Tue03/24/15 at 2251, STAT New Bag 03/24/2015 19:21 EDT 200 mL/hr oxyCODONE (ROXICODONE) 5 mg immediate release tablet 1 dose, Starting on Tue03/24/15 at 2005, Until Tue03/24/15 at 2003 oxyCODONE (ROXICODONE) immediate release tablet 10 mg 10 mg, oral, NOW X1, 1 dose, On Tue03/24/15 at 2014, STAT Given 03/24/2015 20:04 EDT 10 mg documented in this encounter Discontinued Medications Medication Sig Discontinue Reason Start Date End Da te clindamycin (CLEOCIN) 300 mg capsule Take 1 Cap by mouth every 6 hours. 09/14/2014 03/24/2015 documented as of this encounter Historical Medications * This list may reflect changes made after this encounter. UNABLE TO FIND Xyfexen_ a liver antibioltic 07/29/2015 added in this encounter Active and Recently Administered Medications Times are shown in EDT. Scheduled Medication Order 03/22/2015 03/23/2015 03/24/2015 acetaminophen (TYLENOL) tablet 1,000 mg (COMPLETED) 1,000 mg, oral, NOW X1, 1 dose, On Tue03/24/15 at 1700, STAT 1721 (Given - Provid er: Chaparrita Tinajero RN) electrolyte-R (NORMOSOL-R) solution BOLUS solution 2,000 mL (COMPLETED) 2,000 mL, intravenous, NOW X1, 1 dose, On Tue03/24/15 at 1600 1640 (Given - Provid er: Chaparrita Tinajero RN)1801 (Completed - Provider: Chaparrita Tinajero RN) oxyCODONE (ROXICODONE) immediate release tablet 10 mg (COMPLETED) 10 mg, oral, NOW X1, 1 dose, On Tue03/24/15 at 2014, STAT 2004 (Given - Provid er: Spring Liu RN) Continuous Medication Order 03/22/2015 03/23/2015 03/24/2015 electrolyte-R (NORMOSOL-R) solution (CANCELED) at 200 mL/hr, intravenous, CONTINUOUS, Starting on Tue03/24/15 at 1900, Until Tue03/24/15 at 2251, STAT 1921 (New Bag - Prov ider: Spring Liu RN) documented in this encounter Orders Nursing Count Last Ordered Date First Orde red Date INSERT PERIPHERAL IV 1 03/24/2015 documented in this encounter Care Teams Inspector Relationship Specialty Start Date End Date Emigdio Centeno MD [address] [place] [id number] PCP - General 09/14/14 07/30/15 documented as of this encounter
--- OUTSIDE RECORDS SUMMARY | 2024-11-22 17:32 | XMS_ITS | Encounter Summary ---
Author Organization [facility] [address] [place] [address] Care Team Providers Care Integrated Logistics Programs Director Name Role Phone Mirna Guerrero Primary Care Provider [phone] Encounter Details Date Type Department Care Team (Late st Contact Info) Description 11/19/2024 Orders Only [place] [address] Laurent Cabrera MD [facility] [place] [address] Right shoulder pain, unspecified chronicity Social History Tobacco Use Types Packs/Day Years [...] 11/29/2024 1:30 PM EST Appointment XRay at [address] [place] [address] Laurent Cabrera MD [facility] ORTHOPAEDIC SURGERY [place], [place] [id number] 11/29/2024 2:20 PM EST Office Visit [place] [address] Laurent Cabrera MD [facility] [place] [address] Scheduled Orders Name Type Priority Associated Diagnoses Orde r Schedule XR Shoulder Right (Generic) Imaging Routine Right shoulder pain, unspecified chronicity Expected: 11/26/2024 (Approximate), Expires: 05/20/2026 documented as of this encounter Visit Diagnoses Diagnosis Right shoulder pain, unspecified chronicity documented in this encounter Care Teams Integrated Logistics Programs Director Relationship Specialty Start Date End Date Mirna Guerrero PA [address] [place] [id number] PCP - General Family Medicine 11/05/24 documented as of this encounter
--- OUTSIDE RECORDS SUMMARY | 2024-11-22 17:32 | XMS_ITS | Encounter Summary ---
Author Organization [facility] Address [address] [place] [address] Care Team Providers Care Director Of Corporate Sponsorships Name Role Phone Emigdio Centeno MD Primary Care Provider [phone] Encounter Details Date Type Department Care Team (Late st Contact Info) Description 04/16/2015 Results Only Imaging [facility] [phone] Emigdio Centeno MD [address] [place] [phone] Social History Tobacco Use Types Packs/Day Years [...] EST Office Visit [facility] Ophthalmology - [facility] [place] [address] [place] [address] Gagandeep Rome MD [address] [facility], [facility] [address] [place] [phone] 02/11/2025 13:30 EDT Telemedicine [facility] Hematology & Oncology - [address] [phone] Dana Padilla MD [address] [facility], [address] [place] [phone] documented as of this encounter Visit Diagnoses Not on filedocumented in this encounter Care Teams Director Of Corporate Sponsorships Relationship Specialty Start Date End Date Emigdio Centeno MD [address] [place] [id number] PCP - General 09/14/14 07/30/15 documented as of this encounter
--- OUTSIDE RECORDS SUMMARY | 2024-11-22 17:32 | XMS_ITS | Encounter Summary ---
Author Organization [facility] Address [address] [place] [address] Care Team Providers Care Pipe Roller Name Role Phone Emigdio Centeno MD Primary Care Provider [phone] Reason for Referral * Consult (48 Hrs (Urgent)) - Closed Specialty Diagnoses / Procedures Referred By Serene huitron Referred To Contact Cardiology Diagnoses Chest pain Teresa Bañuelos DO Phone: tel: fax: [facility] Cardiology [place] [address] Phone: tel: fax: Referral ID Status Reason Start Date Expiration Date V isits Requested Visits Authorized [id number] Closed Specialty Services Required 05/16/2015 1 1 Question Answer Reason for Request: chest pain with positive family history, obesity and smoker, 2x negative tropnin in ED. Curbside consult with cards fellow request outpatient ETT Reason for Visit * Reason Comments Loss of Consciousness to ED for BRIGHT which started this am, went to BR in [place] to void and reports feeling syncopal when leaving BR, states fell to knees in [place], then to ground, no loss of bladder/bowel, skin PWD, aroused easily to sternum rub and assisted to WC. Pt states she has also had CP since last pm, constant, described as burning, into arm and neck. States CP is now worse than BRIGHT Encounter Details Date Type Department Care Team (Late st Contact Info) Description 05/16/2015 14:16 EDT - 05/16/2015 19:34 EDT Emergency [facility] Emergency Department - Main [address] [id number] J Luis Gregory MD [address], [address] [place] [address] Emergency, MD Rolando Chest pain (Primary Dx) Discharge Disposition: Home or [...] Sign Reading Time Taken Comments Blood Pressure 120/80 05/16/2015 1645 EDT Pulse 68 05/16/2015 1449 EDT Temperature 36.8 ??C (98.2 ??F) 05/16/2015 1449 EDT Respiratory Rate 15 05/16/2015 1645 EDT Oxygen Saturation 96% 05/16/2015 1645 EDT Inhaled Oxygen Concentration - - Weight 90.7 kg (200 lb) 05/16/2015 1449 EDT Height 165.1 cm (5' 5) 05/16/2015 1449 EDT Body Mass Index 33.28 05/16/2015 1449 EDT documented in this encounter Discharge Instructions * Discharge Instructions* Teresa Bañuelos MD - 05/16/2015 19:20 EDT 1. An outpatient stress test has been ordered for you. You will be contacted by cardiology early next week to schedule a day and time for your stress test. 2. After the stress test you will be seen by cardiology to discuss results and plan going forward, though likely not on same day 3. Continue to usual medications 4. Follow up with PCP on Tuesday regarding your recent emergency department visit 5. Return to the Emergency Department (ED) if your condition worsens, does not improve as expected,or other new concerns arise. Specifically return if you have new or uncontrolled pain, high fever, difficulty breathing, vomiting and unable to keep down fluids or medications, or any other concerns. * Attachments The following attachments cannot be sent through Care Everywhere. * CHEST PAIN (ROMANSH) documented in this encounter Medications at Time [...] documented in this encounter ED Notes * Spring Liu RN - 05/16/2015 1930 EDT Pt ambulatory out of ED after consult with ski molder, pt verbalizes understanding of d/c instructions. * Spring Liu RN - 05/16/2015 1905 EDT Ambulatory to BR and back without assistance with steady gait. No further episodes of vomiting noted. Pt now rings call hines asking for PIV to be removed and to have something to drink and wants to be d/c'd, provider notified and in to speak with pt. * Dilan Gomez - 05/16/2015 1831 EDT Blood drawn via butterfly needle per protocol, green tube(s) sent to lab per order. * Spring Liu RN - 05/16/2015 1712 EDT During PIV start pt continues to list complaints, assisted to the BR via wheelchair due to event while in waiting room, pt able to stand and walk a few feet without assistance and with steady gait ptreports after using the bathroom of having more dry heaves this RN was outside the door listeningfor pt entire time while pt used the bathroom no retching or vomiting heard. Immediately after PIV started pt asking can I get something for pain and nausea now?, pt was resting comfortably and notc/o of pain during PIV start and no episodes of retching or visible evidence of nausea or discomfort noted. Pt medicated with Zofran IV and approx 15 minutes later given PO Dilaudid pt states I hopeI can keep that down. Pt requested curtain be closed, again no episodes of vomiting or nausea noted since admission to the department. Approx 10 min later this RN was in the room adjacent to pts room with curtain dividing, I heard gagging and then noises of forced emesis. Pt found to have vomited small amount of bile, notified and curtain opened for more direct observation of the room. * J Luis Gregory MD - 05/16/2015 1611 EDT I, Cris Zavala, am scribing for J Luis Gregory MD while he/she is personally performing the service. Cris Zavala 05/16/2015 16:11 I performed a history and exam of this patient and discussed the case with the resident. I reviewedthis individual's note and I concur with the documented findings and plan of care except as documented differently. ROS as per resident chart. Otherwise reviewed in full and negative or non-contributory. Tara Boothe is a 54 y.o. female with a history of chronic pain who is new to the area and presents with intermittent chest pain. Patient had a reassuring physical examination here as well as laboratory studies EKG showed no signs of ischemia troponin was negative ??2. Urology was consult and the patient was arranged outpatient stress test to evaluate for unstable angina. He felt much improvedwith symptomatic treatment here and emerged department was able to be discharged home in fair condition for outpatient follow-up return precautions to the emergency department given. PE NAD HEENT PERRLA EOMI CV RRR no MRG LUNG CTAB no WRR ABD SNTND EXT WAWP NEURO AxOx3, CN II-XII intact, no focal deficits Psych: depressed, flat affect, no SI or HI Ordered cardiac pack, urinalysis, urine culture, CMP, and hemagram and differential, albumin, alkaline phosphatase, ALT, AST, Calcium, Bilirubin, Protein, and urine microscopic. Significant for increased WBC count. Ordered Chest PA and Lateral. EKG performed. 16:57: Patient vomited (possibly self-induced) after given PO dilaudid. No history of vomiting today. Requests IV dilaudid. EKG: Sinus rhythm of 64 bpm. Normal access. Normal intervals. No acute ST elevation or depression. EKG repeat: Normal sinus rhythm 65. Normal access. Normal interval. No acute ST elevation or depression. Unchanged from earlier today. Initial and repeat troponin negative. This documentation is recorded by Cris Zavala acting as Scribe under the direction and presence of J Luis Gregory MD. J Luis Gregory MD: I personally performed the services recorded by the scribe in my presence. I confirm the scribe's documentation has been reviewed by me to accurately and completely record my work,treatment, procedures, and medical decision making. * Spring Liu RN - 05/16/2015 1601 EDT Blood drawn via saline lock per protocol, rainbow tube(s) sent to lab per order. documented in this encounter Miscellaneous Notes * ED Resident - Teresa Bañuelos MD - 05/16/2015 1525 EDT DOS: 05/16/2015 Chief Complaint Patient presents with ??? Loss of Consciousness to ED for BRIGHT which started this am, went to BR in [place] to void and reports feeling syncopal when leaving BR, states fell to knees in [place], then to ground, no loss of bladder/bowel, skin PWD, aroused easily to sternum rub and assisted to WC. Pt states she has also had CP since last pm, constant, described as burning, into arm and neck. States CP is now worse than BRIGTH HPI The patient is a 54 y.o. female who presents today with Loss of Consciousness HPI Comments: Tara Boothe is a 54 year old female with PMH cirrhosis 2/2 fatty liver disease, hypothyroidism and anxiety presenting with substernal chest pain and shortness of breath since last night. Patient is disabled and cares for her two grandchildren. She was chasing them around the house last night when she had substernal chest pain and tingling sensation radiating to her left arm and upher neck as well as SOB. The pressure was constant, rated 8/10 at its worst. It subsides a bit withrest, but has overall been constant since last night. After chest pain began she also had several episodes of nonbloody emesis last night and this morning. She took antacid without relief. This morning she awoke with chest pain and diffuse headache as well as blurry vision. She continues to feel dizzy and lightheaded. Chest pain currently 5/10. PO intake has been poor. Denies recent medication changes aside from restarting lactulose 2 weeks ago. She did not take AM medications. She continues tosmoke 1/2 ppd. Denies sick contacts, GI/ symptoms or recent travel. Of note, patient has history of thrombocytopenia for which she underwent bone marrow biopsy 1-2 years ago. Loss of Consciousness Associated symptoms: abdominal pain, headaches, light-headedness, nausea, vomiting and weakness Associated symptoms: no fever Review of Systems Review of Systems Constitutional: Positive for activity change and fatigue. Negative for fever, chills and diaphoresis. Respiratory: Positive for chest tightness and shortness of breath. Negative for cough. Cardiovascular: Positive for chest pain. Gastrointestinal: Positive for nausea, vomiting and abdominal pain. Negative for diarrhea and bloodin stool. Genitourinary: Negative for dysuria, urgency, frequency, hematuria and difficulty urinating. Patient currently has no complaints of hematuria however recently she has had this 2/2 kidney stones. She is undergoing outpatient workup and treatment for this. Musculoskeletal: Negative for arthralgias. Neurological: Positive for dizziness, loss of consciousness, weakness, light- headedness and headaches. The patient's past medical, family [...] 36.8 ??C (98.2 ??F) Temp src: Oral Cardiac Rhythm: Normal sinus rhythm Resp: 16 SpO2: 99 % BP: 126/73 mmHg BP Device: BP Machine O2 Device: None (Room air) Physical Exam Constitutional: She is oriented to person, place, and time. She appears well- developed and well-nourished. HENT: Head: Normocephalic and atraumatic. Eyes: EOM are normal. Pupils are equal, round, and reactive to light. Cardiovascular: Normal rate and regular rhythm. Exam reveals no gallop and no friction rub. No murmur heard. Pulmonary/Chest: Good air movement. No respiratory distress, no accesorry muscle movement. Diffuse mild wheezes worse right than left. Abdominal: Soft. She exhibits no distension. There is tenderness. There is no rebound and no guarding. Epigastric/ RUQ tenderness. Musculoskeletal: She exhibits no edema. Neurological: She is alert and oriented to person, place, and time. RESULTS EKG orders: EKG 12-LEAD ECG Reviewed: NSR rate 64. Normal axis. Normal MI and QT intervals. Good R wave progression. Flipped P wave in V1 The study has been independently viewed by me. The study has been interpreted independently and contemporaneously by me. The EKG appears to be a good tracing. Attending flat grinder operator not immediately available for acute interpretation. Radiology orders: CHEST PA AND LATERAL Imaging Results CHEST PA AND LATERAL (Final result) Result time: 05/16/15 17:20:25 Final result Narrative: CHEST PA AND LATERAL 05/16/2015 5:09 PM Clinical History/Comments: shortness of breath and chest pain Comparison: 03/24/2015. Findings: 2 views of the chest were performed. There are no pleural effusions. There is no evidence of pneumothorax. Radiographically, I do not see focal consolidation to suggest pneumonia. There is peribronchial thickening which can be seen with bronchitis and reactive airways. I do not see convincing evidence of pulmonary edema. The cardio mediastinal silhouette is within normal limits. The upper abdomen is unremarkable. Bony structures are unchanged. Impression: Peribronchial thickening could indicate bronchitis and reactive airways. No convincing evidence of pneumonia or edema. Preliminary result Narrative: PRELIMINARY REPORT CHEST PA AND LATERAL 05/16/2015 5:09 PM Clinical History/Comments: shortness of breath and chest pain Comparison: 03/24/2015. Findings: 2 views of the chest were performed. There are no pleural effusions. There is no evidence of pneumothorax. Radiographically, I do not see focal consolidation to suggest pneumonia. There is peribronchial thickening which can be seen with bronchitis and reactive airways. I do not see convincing evidence of pulmonary edema. The cardio mediastinal silhouette is within normal limits. The upper abdomen is unremarkable. Bony structures are unchanged. Impression: Peribronchial thickening could indicate bronchitis and reactive airways. No convincing evidence of pneumonia or edema. Imaging Reviewed. I have independently reviewed the images. No evidence of acute pulmonary illness or fluid overload. ED Lab Results Lab Results TROPONIN I (Final result) Component (Lab Inquiry) Collection Time Result Time Troponin I 05/16/15 18:31:00 05/16/15 19:04:23 <0.034 PROFILE ED CARDIAC PACK (Final result) Component (Lab Inquiry) Collection Time Result Time Sodium Potassium Chloride CO2 BUN 05/16/15 16:00:00 05/16/15 17:11:59 143 3.9 103 30 10 Collection Time Result Time Creatinine GFR, Calculated Magnesium WBC RBC 05/16/15 16:00:00 05/16/15 17:11:59 0.77 >60 1.9 Duplicate Test Request SEE ACC 2273 Duplicate Test Request SEE ACC 2273 Collection Time Result Time Hemoglobin HCT MCV MCH Hypochromia 05/16/15 16:00:00 05/16/15 17:11:59 Duplicate Test Request SEE ACC 2273 Duplicate Test Request SEE ACC 2273 Duplicate Test Request SEE ACC 2273 Duplicate Test Request SEE ACC 2273 Duplicate Test Request SEE ACC 2273 Collection Time Result Time MCHC RDW-CV RDW-SD Anisocytosis PLT 05/16/15 16:00:00 05/16/15 17:11:59 Duplicate Test Request SEE ACC 2273 Duplicate Test Request SEE ACC 2273 Duplicate Test Request SEE ACC 2273 Duplicate Test Request SEE ACC 2273 Duplicate Test Request SEE ACC 2273 Collection Time Result Time MPV Condition Neutrophils Troponin I Glucose, Screening 05/16/15 16:00:00 05/16/15 17:11:59 Duplicate Test Request SEE ACC 2273 Duplicate Test Request SEE ACC 2273 Duplicate Test Request SEE ACC 2273 <0.034 83 Collection Time Result Time Hold Blue Top 05/16/15 16:00:00 05/16/15 17:11:59 Sample for coagulation will be discarded after 4 hours URINALYSIS (Final result) Abnormal Component (Lab Inquiry) Collection Time Result Time Color, UA CLARITY U GLUCOSE U BILIRUBIN, UR KETONES 05/16/15 16:00:00 05/16/15 16:37:56 Yellow Clear Neg Neg Neg Collection Time Result Time Specific [place], Urine BLOOD U PH, UR Protein, UA Urobilinogen, UA 05/16/15 16:00:00 05/16/15 16:37:56 1.010 Trace (A) 6.5 Neg 0.2 Collection Time Result Time NITRITE LEUK mariola, UR 05/16/15 16:00:00 05/16/15 16:37:56 Neg Trace (A) URINE CULTURE IF UA POSITIVE - NON POCT URINALYSIS ONLY (Final result) Component (Lab Inquiry) Collection Time Result Time Culture if Indicated 05/16/15 16:00:00 05/16/15 16:38:09 Culture indicated by urinalysis results. HEMAGRAM AND DIFFERENTIAL (Final result) Abnormal Component (Lab Inquiry) Collection Time Result Time WBC RBC Hemoglobin HCT MCV 05/16/15 16:00:00 05/16/15 17:09:59 2.52 (L) 4.82 13.5 40.9 85 Collection Time Result Time MCH MCHC RDW-CV RDW-SD PLT 05/16/15 16:00:00 05/16/15 17:09:59 28.0 32.9 16.1 (H) 47.3 63 (L) Collection Time Result Time MPV Neutrophils Lymphocytes Monocytes Eosinophils 05/16/15 16:00:00 05/16/15 17:09:59 8.4 81.0 (H) 13.0 (L) 1.0 (L) 1.0 Collection Time Result Time Basophils ABS Neutrophils ABS Lymphs ABS Monocytes ABS Eosinophils 05/16/15 16:00:00 05/16/15 17:09:59 4.0 (H) 2.03 (L) 0.33 (L) 0.03 (L) 0.03 Collection Time Result Time ABS Basophils Type of Diff: 05/16/15 16:00:00 05/16/15 17:09:59 0.10 Manual ALBUMIN (Final result) Component (Lab Inquiry) Collection Time Result Time Albumin 05/16/15 16:00:00 05/16/15 17:02:28 4.1 ALKALINE PHOSPHATASE (Final result) Component (Lab Inquiry) Collection Time Result Time Total Alkaline Phosphatase 05/16/15 16:00:00 05/16/15 17:02:28 105 ALT (Final result) Component (Lab Inquiry) Collection Time Result Time ALT 05/16/15 16:00:00 05/16/15 17:02:28 37 AST (Final result) Component (Lab Inquiry) Collection Time Result Time AST 05/16/15 16:00:00 05/16/15 17:02:28 34 CALCIUM (Final result) Component (Lab Inquiry) Collection Time Result Time Calcium Calculated Calcium 05/16/15 16:00:00 05/16/15 17:02:28 9.0 9.3 BILIRUBIN, TOTAL (Final result) Component (Lab Inquiry) Collection Time Result Time Bilirubin, Total 05/16/15 16:00:00 05/16/15 17:02:28 0.7 PROTEIN, TOTAL (Final result) Component (Lab Inquiry) Collection Time Result Time Total Protein 05/16/15 16:00:00 05/16/15 17:02:28 7.0 URINE MICROSCOPIC (Final result) Abnormal Component (Lab Inquiry) Collection Time Result Time WBC U RBC, UA Squam Epithel, UA Renal Epithel, UA BACTERIA 05/16/15 16:00:00 05/16/15 16:37:56 1 to 5 1 to 5 Few (A) None seen None seen Collection Time Result Time Crystals, UA Casts, UA UA Comment 05/16/15 16:00:00 05/16/15 16:37:56 None seen None seen Microscopic results are unreliable on urines unrefrig >2hrs or refrig >8hrs. BACTERIAL CULTURE, URINE (In process) Result time: 05/16/15 17:10:34 Labs reviewed. Results notable for WBC low at 2.52, platlet low 63, which according to patient is her normal. Troponin negative x2 ED COURSE 54 year old female with PMH cirrhosis presenting with 1 day history of contstant substernal chest pressure radiating to her left arm and neck. On admission patient continues to have symptoms. Vitals signs were stable, O2 sat 99% on RA. 1600: Patient given duoneb for wheezing, zofran for nausea and 500 cc bolus NS while initial labs drawn. Patient requesting dilaudid for pain. Allergy to morphine listed in chart clarified. Patient states the had abdominal discomfort and sweating after receiving morphine prior to cholecystectomy many years ago. She has tolerated dilaudid since without issue.Given 2mg PO dilaudid 1430: Reported by RN that patient was heard gagging with noises of forced emesis after being given PO dilaudid. 1730: Patient complaining of 8/10 chest pain and 12/10 headache. Dilaudid 1mg IV given after discussion with Dr. Gregory that patient is drug seeking. She has a long list of allergies to non-opioid medications and repeatedly asks for dilaudid by name. Patient reports moderate effect. 0: Darrell consult with cardiology in ED. Patient is moderate risk with HEART score of 4 (risk factors: obesity and family history, smoker, moderately suspicious history, age). Agree with plan for outpatient stress test and follow up with cardiology. ASSESSMENT AND PLAN Final diagnoses: None MDM ED Current Prescriptions None DISPOSITION: No disposition on file Patient re-evaluated immediately prior to discharge with Improved symptoms, normal vital signs, andtolerating PO. Pain level prior discharge:2 (personally discussed with patient during my last evaluation). The patient feels this is appropriate for outpatient management with oral analgesia. Discussed clinical/diagnostic findings. Discharged with a clear plan for outpatient follow up. Given usual and customary return instructions prior to discharge. PCP: Emigdio Centeno MD 05/16/2015 15:25 No flowsheet data found. documented in this encounter Plan of Treatment Upcoming Encounters Date Type Department Care Team (Late st Contact Info) Description 01/04/2025 13:00 EST Office Visit [facility] Ophthalmology - [address] [id number] Gagandeep Rome MD [address] [place] [address], [facility] [address] [place] [phone] 02/11/2025 13:30 EDT Telemedicine [facility] Hematology & Oncology [address] [id number] Dana Padilla MD [address] [place] [address], [facility] [address] [place] [phone] Scheduled Referrals Name Type Priority Associated Diagnoses Order Schedule AMB CONS/FOLLOW UP CARDIOLOGY Outpatient Referral STAT Chest pain Ordered: 05/16/2015 documented as of this encounter Procedures Procedure Name Priority Date/Time Associated Diagnosis Comments ECG REPORT - SCANNED 05/23/2015 3:50 EDT ECG REPORT - SCANNED 05/23/2015 3:45 EDT TROPONIN I STAT 05/16/2015 18:31 EDT EKG 12-LEAD STAT 05/16/2015 18:12 EDT CHEST PA AND LATERAL STAT 05/16/2015 17:09 EDT PROFILE ED CARDIAC PACK STAT 05/16/2015 16:00 EDT URINE MICROSCOPIC Routine 05/16/2015 16: 00 EDT URINALYSIS WITH MICROSCOPIC IF POSITIVE Routine 05/16/2015 16:00 EDT URINE CULTURE IF POSITIVE Routine 05/16/2015 16:00 EDT COMPLETE BLOOD COUNT AND DIFFERENTIAL STAT 05/16/2015 16:00 EDT BACTERIAL CULTURE, URINE Routine 05/16/2015 16:00 EDT ALT Routine 05/16/2015 16:00 EDT AST Routine 05/16/2015 16:00 EDT PROTEIN, TOTAL Routine 05/16/2015 16:00 EDT ALKALINE PHOSPHATASE Routine 05/16/2015 16:00 EDT CALCIUM Routine 05/16/2015 16:00 EDT BILIRUBIN, TOTAL Routine 05/16/2015 16:0 0 EDT ALBUMIN Routine 05/16/2015 16:00 EDT NEBULIZER TX INTERMITTENT Routine 05/16/2015 15:49 EDT EKG 12-LEAD STAT 05/16/2015 14:50 EDT documented in this encounter Results * ECG REPORT - SCANNED (05/23/2015 3:50 EDT) 05/23/2015 3:50 EDT us Scan 2 Clinical Application Manager PROCEDURE/MINOR SURGICAL OR DERABLES Final Result * ECG REPORT - SCANNED (05/23/2015 3:45 EDT) 05/23/2015 3:45 EDT us Scan 2 Clinical Application Manager PROCEDURE/MINOR SURGICAL OR DERABLES Final Result * TROPONIN I (05/16/2015 18:31 EDT) Troponin I (ng/mL) <0.034 <0.034 ng/ml 05/16/2015 19:04 EDT [facility] Blood specimen (specimen) BLOOD SPECIMEN / Unknown 05/16/2015 18:31 EDT 05/16/2015 18:34 EDT us Teresa Bañuelos DO CHEMISTRY & BLOOD GAS ORD ERABLES Final Result [facility] [address] [place] [address] * EKG 12-LEAD (05/16/2015 18:12 EDT) 05/16/2015 18:1 2 EDT Narrative [facility] EKG - 05/22/2015 8:14 EDT ?[facility] Emergency ? Test Date: ?2015-05-16 Pat Name: ? PHYLISS BOOTHE ?Department: ?? ED ? Room: ? AC05 Gender: ? F ?Log Stacker Operator: ?? [id number] : ?1960 ? Requested By: ALIDA FINK Order Number: [id number] ? Reading : ?? VAN COLBY MD ? Measurements Intervals ?[place] ? Rate: ? 65 ? P: ?59 MI: ? 153 ?QRS: ?59 QRSD: ? 95 ? T: ?64 QT: ? 407 ? QTc: ?425 ? Interpretive Statements SINUS RHYTHM WITH MARKED SINUS ARRHYTHMIA NONSPECIFIC T-WAVE ABNORMALITY Compared to ECG 05/16/2015 14:50:27 Sinus arrhythmia now present I reviewed the tracing and have either agreed or edited the findings in this report. Electronically Signed On 05-22-15 08:14:06 EDT by VAN COLBY MD. Procedure Note Van Colby MD - 05/22/[address] [facility] Emergency Test Date: 2015-05-16 Pat Name: TARA BOOTHE Department: ED Room: [facility] Gender: F Log Stacker Operator: [id number] : 1960 Requested By: ALIDA FINK Order Number: [id number] Reading MD: VAN COLBY MD Measurements Intervals [place] Rate: 65 P: 59 MI: 153 QRS: 59 QRSD: 95 T: 64 QT: 407 QTc: 425 Interpretive Statements SINUS RHYTHM WITH MARKED SINUS ARRHYTHMIA NONSPECIFIC T-WAVE ABNORMALITY Compared to ECG 05/16/2015 14:50:27 Sinus arrhythmia now present I reviewed the tracing and have either agreed or edited the findings inthis report. Electronically Signed On 05-22-15 08:14:06 EDT by VAN TOWNSEND. Teresa Bañuelos DO CARDIAC ECG ORDERABLES Fi nal Result [facility] EKG * CHEST PA AND LATERAL (05/16/2015 17:09 EDT) Anatomical Region Laterality Modality Other 05/16/2015 17:0 9 EDT 05/16/2015 17:20 EDT Narrative 05/16/2015 17:20 EDT CHEST PA AND LATERAL ??05/16/2015 5:09 PM Clinical History/Comments: shortness of breath and chest pain Comparison: 03/24/2015. Findings: 2 views of the chest were performed. There are no pleural effusions. There is no evidence of pneumothorax. Radiographically, I do not see focal consolidation to suggest pneumonia. There is peribronchial thickening which can be seen with bronchitis and reactive airways. I do not see convincing evidence of pulmonary edema. The cardio mediastinal silhouette is within normal limits. The upper abdomen is unremarkable. Bony structures are unchanged. Impression: Peribronchial thickening could indicate bronchitis and reactive airways. No convincing evidence of pneumonia or edema. Procedure Note Josefina Aiken MD - 05/16/2015 CHEST PA AND LATERAL 05/16/2015 5:09 PM Clinical History/Comments: shortness of breath and chest pain Comparison: 03/24/2015. Findings: 2 views of the chest were performed. There are no pleural effusions. There is no evidence of pneumothorax. Radiographically, I do not see focal consolidation to suggest pneumonia. There is peribronchial thickening which can be seen with bronchitis and reactive airways. I do not see convincing evidence of pulmonary edema. The cardio mediastinal silhouette is within normal limits. The upper abdomen is unremarkable. Bony structures are unchanged. Impression: Peribronchial thickening could indicate bronchitis and reactive airways. No convincing evidence of pneumonia or edema. Teresa Bañuelos DO IMG DIAGNOSTIC IMAGING OR DERABLES Final Result * BACTERIAL CULTURE, URINE (05/16/2015 16:00 EDT) Result Less than 10,000 CFU/ml Usual urogenital tiffanie. 05/18/2015 7:30 EDT [facility] URINE / Unknown 05/16/2015 1 6:00 EDT 05/16/2015 17:10 EDT Default Emergency MD MICROBIOLOGY - GENERAL DEMI CARDENAS Final Result [facility] [address] [place] [address] * (ABNORMAL) URINE MICROSCOPIC (05/16/2015 16:00 EDT) WBC, UA 1 to 5 0 - 5 /HPF 05/16/2015 16:37 EDT [facility] RBC, UA 1 to 5 0 - 5 /HPF 05/16/2015 16:37 EDT [facility] Squam Epithel, UA Few(A) None seen /HPF 05/16/2015 16:37 EDT [facility] Renal Epithel, UA None seen None seen /HPF 05/16/2015 16:37 EDT [facility] Bacteria, UA None seen None seen /HPF 05/16/2015 16:37 EDT [facility] Crystals, UA None seen /HPF 05/16/2015 16:37 EDT [facility] Hyaline Casts, UA None seen /LPF 05/16/2015 16:37 EDT [facility] UA Comment Microscopic results 05/16/2015 16:37 EDT [facility] Comment: are unreliable on urines unrefrig >2hrs or refrig >8hrs. URINE / Unknown 05/16/2015 1 6:00 EDT 05/16/2015 16:06 EDT Teresa Bañuelos DO URINALYSIS ORDERABLES Fin al Result Performing Organization Address City/[facility]/ZIP Co de Phone Number [facility] [address] [place] [address] * PROTEIN, TOTAL (05/16/2015 16:00 EDT) Total Protein 7.0 6.5 - 8.3 g/dl 05/16/2015 17:02 EDT [facility] BLOOD SPECIMEN / Unknown 05/16/2015 16:00 EDT 05/16/2015 16:09 EDT us Teresa Bañuelos DO CHEMISTRY & BLOOD GAS ORD ERABLES Final Result Performing Organization Address [facility] Co de Phone Number [facility] [address] [place] [address] * BILIRUBIN, TOTAL (05/16/2015 16:00 EDT) Bilirubin, Total 0.7 <1.4 mg/dl 05/16/2015 17:02 EDT [facility] BLOOD SPECIMEN / Unknown 05/16/2015 16:00 EDT 05/16/2015 16:09 EDT Teresa Bañuelos DO CHEMISTRY & BLOOD GAS ORD ERABLES Final Result Performing Organization Address [facility] Co de Phone Number [facility] [address] [place] [address] * CALCIUM (05/16/2015 16:00 EDT) Calcium 9.0 8.5 - 10.5 mg/dl 05/16/2015 17:02 EDT [facility] Calculated Calcium 9.3 8.5 - 10.5 mg/dl 05/16/2015 17:02 EDT [facility] BLOOD SPECIMEN / Unknown 05/16/2015 16:00 EDT 05/16/2015 16:09 EDT us Teresa Bañuelos DO CHEMISTRY & BLOOD GAS ORD ERABLES Final Result Performing Organization Address City/[facility]/ZIP Co de Phone Number [facility] [address] [place] [address] * AST (05/16/2015 16:00 EDT) AST 34 15 - 46 U/L 05/16/2015 17:02 EDT [facility] BLOOD SPECIMEN / Unknown 05/16/2015 16:00 EDT 05/16/2015 16:09 EDT us Teresa Bañuelos DO CHEMISTRY & BLOOD GAS ORD ERABLES Final Result Performing Organization Address [facility]/ZIP Co de Phone Number [facility] [address] [place] [address] * ALT (05/16/2015 16:00 EDT) ALT 37 <53 U/L 05/16/2015 17:02 EDT [facility] BLOOD SPECIMEN / Unknown 05/16/2015 16:00 EDT 05/16/2015 16:09 EDT us Teresa Bañuelos DO CHEMISTRY & BLOOD GAS ORD ERABLES Final Result Performing Organization Address City/[facility]/ZIP Co de Phone Number [facility] [address] [place] [address] * ALKALINE PHOSPHATASE (05/16/2015 16:00 EDT) Total Alkaline Phosphatase 105 38 - 126 U/L 05/16/2015 17:02 EDT [facility] BLOOD SPECIMEN / Unknown 05/16/2015 16:00 EDT 05/16/2015 16:09 EDT us Teresa Bañuelos DO CHEMISTRY & BLOOD GAS ORD ERABLES Final Result [facility] [address] [place] [address] * ALBUMIN (05/16/2015 16:00 EDT) Albumin 4.1 3.4 - 4.9 g/dl 05/16/2015 17:02 EDT [facility] BLOOD SPECIMEN / Unknown 05/16/2015 16:00 EDT 05/16/2015 16:09 EDT Teresa Bañuelos DO CHEMISTRY & BLOOD GAS ORD ERABLES Final Result Performing Organization Address [facility] Co de Phone Number [facility] [address] [place] [address] * (ABNORMAL) HEMAGRAM AND DIFFERENTIAL (05/16/2015 16:00 EDT) WBC 2.52(L) 4.0 - 12.4 K/cmm 05/16/2015 16:19 [facility] RBC 4.82 3.86 - 5.04 M/cmm 05/16/2015 16:19 [facility] Hemoglobin 13.5 11.6 - 15.2 gm/dl 05/16/2015 16:19 [facility] HCT 40.9 34.9 - 44.4 % 05/16/2015 16:19 [facility] MCV 85 81 - 98 fl 05/16/2015 16:19 [facility] MCH 28.0 26.7 - 33.3 pg 05/16/2015 16:19 [facility] MCHC 32.9 32.1 - 35.9 gm/dl 05/16/2015 16:19 [facility] RDW-CV 16.1(H) 11.7 - 14.6 % 05/16/2015 16:19 [facility] RDW-SD 47.3 37.6 - 50.3 fl 05/16/2015 16:19 [facility] PLT 63(L) 141 - 320 K/cmm 05/16/2015 16:19 [facility] MPV 8.4 7.5 - 11.2 fl 05/16/2015 16:19 [facility] Neutrophils 81.0(H) 45.5 - 79.7 % 05/16/2015 17:09 [facility] Lymphocytes 13.0(L) 15.0 - 46.8 % 05/16/2015 17:09 [facility] Monocytes 1.0(L) 1.8 - 12.0 % 05/16/2015 17:09 [facility] Eosinophils 1.0 0.6 - 6.9 % 05/16/2015 17:09 [facility] Basophils 4.0(H) 0.2 - 1.4 % 05/16/2015 17:09 [facility] ABS Neutrophils 2.03(L) 2.20 - 8.85 K/cmm 05/16/2015 17:09 [facility] ABS Lymphs 0.33(L) 1.09 - 3.30 K/cmm 05/16/2015 17:09 [facility] ABS Monocytes 0.03(L) 0.1 - 0.8 K/cmm 05/16/2015 17:09 [facility] ABS Eosinophils 0.03 0.03 - 0.61 K/cmm 05/16/2015 17:09 [facility] ABS Basophils 0.10 0.01 - 0.11 K/cmm 05/16/2015 17:09 [facility] Type of Diff: Manual 05/16/2015 17:09 [facility] Blood specimen (specimen) BLOOD SPECIMEN / Unknown 05/16/2015 16:00 EDT 05/16/2015 16:19 EDT us Teresa Bañuelos DO PACKAGES & DNA PROBE ORDE RABKIANNA Final Result [facility] [address] [place] [address] * URINE CULTURE IF UA POSITIVE - NON POCT URINALYSIS ONLY (05/16/2015 16:00 EDT) Culture if Indicated Culture indicated by urinalysis results. 05/16/2015 16:38 T [facility] Urine specimen (specimen) TOPOGRAPHY UNKNOWN / Unknown 05/16/2015 16:00 EDT 05/16/2015 16:06 EDT us Teresa Bañuelos DO MICROBIOLOGY - GENERAL OR DERABLES Final Result [facility] [address] [place] [address] * (ABNORMAL) URINALYSIS (05/16/2015 16:00 EDT) Color, UA Yellow 05/16/2015 16:37 T [facility] Clarity, UA Clear 05/16/2015 16:37 [facility] Glucose, UA Neg Neg 05/16/2015 16:37 [facility] Bilirubin, UA Neg Neg 05/16/2015 16:37 [facility] Ketones, UA Neg Neg 05/16/2015 16:37 [facility] Specific [place], Urine 1.010 1.001 - 1.035 05/16/2015 16:37 [facility] Blood, UA Trace(A) Neg 05/16/2015 16:37 [facility] pH, UA 6.5 4.6 - 8.0 05/16/2015 16:37 [facility] Protein, UA Neg Neg 05/16/2015 16:37 [facility] Urobilinogen, UA 0.2 0.2 - 1.0 E.U./dl 05/16/2015 16:37 [facility] Nitrite, UA Neg Neg 05/16/2015 16:37 [facility] Leuk Esterase Trace(A) Neg 05/16/2015 16:37 [facility] Urine specimen (specimen) URINE / Unknown 05/16/2015 16:00 EDT 05/16/2015 16:06 EDT us Teresa Bañuelos DO URINALYSIS ORDERABLES Fin al Result [facility] [address] [place] [address] * PROFILE ED CARDIAC PACK (05/16/2015 16:00 EDT) Sodium 143 136 - 145 mEq/L 05/16/2015 17:02 EDT [facility] Potassium 3.9 3.5 - 5.0 mEq/L 05/16/2015 17:02 T [facility] Chloride 103 96 - 110 mEq/L 05/16/2015 17:02 T [facility] CO2 30 24 - 32 mEq/L 05/16/2015 17:02 T [facility] BUN 10 10 - 26 mg/dl 05/16/2015 17:02 T [facility] Creatinine 0.77 0.52 - 1.04 mg/dl 05/16/2015 17:02 [facility] GFR, Calculated >60 >60 ml/min/1 .73m2 05/16/2015 17:02 [facility] Magnesium 1.9 1.7 - 2.8 mg/dl 05/16/2015 17:02 [facility] WBC Duplicate Test Request SEE ACC 2273 4.0 - 12.4 [facility] RBC Duplicate Test Request SEE ACC 2273 3.86 - 5.04 M/[facility] Hemoglobin Duplicate Test Request SEE ACC 2273 11.6 - 15.2 gm/dl [facility] HCT Duplicate Test Request SEE ACC 2273 34.9 - 44.4 % [facility] MCV Duplicate Test Request SEE ACC 2273 81 - 98 fl [facility] MCH Duplicate Test Request SEE ACC 2273 26.7 - 33.3 pg [facility] Hypochromia Duplicate Test Request SEE ACC 2273 [facility] MCHC Duplicate Test Request SEE ACC 2273 32.1 - 35.9 gm/dl [facility] RDW-CV Duplicate Test Request SEE ACC 2273 11.7 - 14.6 % [facility] RDW-SD Duplicate Test Request SEE ACC 2273 37.6 - 50.3 fl [facility] Anisocytosis Duplicate Test Request SEE ACC 2273 [facility] PLT Duplicate Test Request SEE ACC 2273 141 - 320 K/cmm [facility] MPV Duplicate Test Request SEE ACC 2273 7.5 - 11.2 fl [facility] Condition Duplicate Test Request SEE ACC 2273 [facility] Neutrophils Duplicate Test Request SEE ACC 2273 45.5 - 79.7 % [facility] Troponin I (ng/mL) <0.034 <0.034 ng/ml 05/16/2015 17:11 EDT [facility] Glucose, Screening 83 70 - 100 mg/dl 05/16/2015 17:02 EDT [facility] Hold Blue Top Sample for coagulation will be discarded after 4 hours 05/16/2015 16:35 EDT [facility] Blood specimen (specimen) BLOOD SPECIMEN / Unknown 05/16/2015 16:00 EDT 05/16/2015 16:09 EDT us Teresa Bañuelos DO PACKAGES & DNA PROBE ORDE RABLES Final Result [facility] [address] [place] [address] * EKG 12-LEAD (05/16/2015 14:50 EDT) 05/16/2015 14:5 0 EDT Narrative [facility] EKG - 05/20/2015 14:25 EDT ?[facility] Emergency ? Test Date: ?2015-05-16 Pat Name: ? PHYLISS BOOTHE ?Department: ?? ED ? Room: ? AC05 Gender: ? F ?Log Stacker Operator: ?? [id number] : ?1960 ? Requested By: ARANAMO Mccord Order Number: [id number] ? Reading MD: ?? JOHNNIE SANCHEZ MD ? Measurements Intervals ?[place] ? Rate: ? 64 ? P: ?64 MI: ? 149 ?QRS: ?57 QRSD: ? 97 ? T: ?68 QT: ? 411 ? QTc: ?425 ? Interpretive Statements SINUS RHYTHM NONSPECIFIC T-WAVE ABNORMALITY I reviewed the tracing and have either agreed or edited the findings in this report. Electronically Signed On 05-20-15 14:25:28 EDT by JOHNNIE SANCHEZ MD. Procedure Note Johnnie Sanchez MD - 05/20/[address] [facility] Test Date: 2015-05-16 Pat Name: TARA BOOTHE Department: ED Room: [facility] Gender: F Log Stacker Operator: [id number] : 1960 Requested By: YASMEEN Mccord Order Number: [id number] Reading MD: JOHNNIE SANCHEZ MD Measurements Intervals [place] Rate: 64 P: 64 MI: 149 QRS: 57 QRSD: 97 T: 68 QT: 411 QTc: 425 Interpretive Statements SINUS RHYTHM NONSPECIFIC T-WAVE ABNORMALITY I reviewed the tracing and have either agreed or edited the findings inthis report. Electronically Signed On 05-20-15 14:25:28 EDT by JOHNNIE NEWTON. us Zeina Arana MD CARDIAC ECG ORDERABLES Pricila mccord Result [facility] EKG documented in this encounter Visit Diagnoses Diagnosis Chest pain- Primary Chest pain, unspecified documented in this encounter Administered Medications Inactive Administered Medications - up to 3 most recent administrations Medication Order MAR Action Action Date Dose Rate Site HYDROmorphone (DILAUDID) tablet 2 mg 2 mg, oral, NOW X1, 1 dose, On Tue05/16/15 at 1630, STAT Given 05/16/2015 16:42 EDT 2 mg HYDROmorphone (PF) (DILAUDID) 1 mg/mL injection 1 mg 1 mg, intravenous, NOW X1, 1 dose, On Tue05/16/15 at 1715, STAT Given 05/16/2015 17:27 EDT 1 mg ondansetron (PF) (ZOFRAN) injection 4 mg 4 mg, intravenous, NOW X1, 1 dose, On Tue05/16/15 at 1600, STAT Given 05/16/2015 16:07 EDT 4 mg ondansetron (PF) (ZOFRAN) injection 4 mg 4 mg, intravenous, NOW X1, 1 dose, On Tue05/16/15 at 1915, STAT Given 05/16/2015 19:17 EDT 4 mg sodium chloride 0.9 % BOLUS 500 mL 500 mL, intravenous, NOW X1, 1 dose, On Tue05/16/15 at 1545, STAT Given 05/16/2015 16:01 EDT 500 mL documented in this encounter Active and Recently Administered Medications Times are shown in EDT. Scheduled Medication Order 05/14/2015 05/15/2015 05/16/2015 HYDROmorphone (DILAUDID) tablet 2 mg (COMPLETED) 2 mg, oral, NOW X1, 1 dose, On Tue05/16/15 at 1630, STAT 1642 (Given - Provid er: Spring Liu RN) HYDROmorphone (PF) (DILAUDID) 1 mg/mL injection 1 mg (COMPLETED) 1 mg, intravenous, NOW X1, 1 dose, On Tue05/16/15 at 1715, STAT 1727 (Given - Provid er: Spring Liu RN) ondansetron (PF) (ZOFRAN) injection 4 mg (COMPLETED) 4 mg, intravenous, NOW X1, 1 dose, On Tue05/16/15 at 1600, STAT 1607 (Given - Provid er: Val Alcala RN) ondansetron (PF) (ZOFRAN) injection 4 mg (COMPLETED) 4 mg, intravenous, NOW X1, 1 dose, On Tue05/16/15 at 1915, STAT 1917 (Given - Provid er: Spring Liu RN) sodium chloride 0.9 % BOLUS 500 mL (COMPLETED) 500 mL, intravenous, NOW X1, 1 dose, On Tue05/16/15 at 1545, STAT 1601 (Given - Provid er: Spring Liu RN) documented in this encounter Orders Medications Ordered That Luc ht Not Have Been Administered Count Last Ordered Date First Ordered Date ipratropium-albuterol (DUONE B) 0.5 mg-3 mg(2.5 mg base)/3 mL nebulizer solution 3 mL 2 05/16/2015 Respiratory Care Count Last Ordered Date First Ordered Date NEBULIZER TX INTERMITTENT 1 05/16/2015 documented in this encounter Care Teams Pipe Roller Relationship Specialty Start Date End Date Emigdio Centeno MD [address] [place] [address] PCP - General 09/14/14 07/30/15 documented as of this encounter
--- OUTSIDE RECORDS SUMMARY | 2024-11-22 17:32 | XMS_ITS | Encounter Summary ---
Author Organization [facility] [address] [place] [address] Care Team Providers Care Torch Straightener And Heater Name Role Phone Alma Farfan MD Primary Care Provider [phone] Encounter Details Date Type Department Care Team (Late st Contact Info) Description 05/01/2021 3:30 PM EDT TH Visit (TeleHealth) Hematology [place] [address] Dom Zeng MD Stearns, Diane M, IMAGE PROCESSING ENGINEER [facility] DR [place] [address] Pancytopenia; Thrombocytopenia Social History Tobacco Use Types Packs/Day Years [...] as of this encounter Progress Notes * Araceli Ribeiro, IMAGE PROCESSING ENGINEER - 05/01/2021 3:30 PM EDT HEMATOLOGY/BMT CLINIC VISIT NOTE CHIEF COMPLAINT: Tara Yun is a 60 y.o. female originally referred by Alma Farfan MD for evaluation of pancytopenia. Data Review (From Dr. Farfan and eD) ?? 12/22/12 CBC - 3.2/12.5/105 ?? 12/28/12 LFTs - all WNL CBC - 3.0/12.7/98 ?? 01/02/13 CBC - 3.2/11.9/82 MCV - 87 ALC - 800, ANC - 2,100 ?? 02/01/13 B12 - 360, TSH - 0.9, ESR - 29, ?? 04/09/13 BM Bx - Normocellular with NTLM and no noted abnormality to explain low counts by morphology,IHC or Flow Cytometr. BM CG - NFK in all cells SPEP - 0.28 IgG kappa m-spike ?? 11/03/16 CBC - 1.3/11.6/49 ANC - 820 SPEP - no monoclonal protein detected 08/08/17 CBC - 1.8/12.1/41 03/25/19 CBC - 1.43/11. ANC - 900 ALC - 320 Hep C Ab - POS Hep B SAb - POS Hep B SAg - POS 04/23/19 BM Bx - Normocellular marrow (~40-50%) with maturing trilineage hematopoiesis and relative erythroid hyperplasia. No morphologic evidence for involvement of the blood or marrow by a myeloid orlymphoproliferative neoplasm. Flow - no abnormal populations detected CG - NFK in 20/20 metaphases Myeloid Gene Panel - no mutations identified ?? PREVIOUS HISTORY OF PRESENT ILLNESS (07/2017) Tara Yun is referred back for pancytopenia after being seen in her local ER on 07/26 for syncope and found to be orthostatic in the [place] [facility]. From Dr. Euceda's phone note from that day: Her labs that day showed WBC 1, Hgb 12, Plt 43, with ANC 720. All other labs, including Calcium, Albumin, and LFT's were WNL. No signs of infection were found. CT abdomen was done that showed no kidney stones or any other acute changes besides her known cirrhosis and splenomegaly. Tara says that other than IV fluids, no treatment was given and she did feel better. Her sx have not recurred. Now living in [place], [place]. Has had episodes of hypoglycemia that required her to be taken to the ER. Has next appt with Hepatology in September. Only new medication is Lyrica - but can't take due to making it difficult for her to sleep. No F/C/S. Coughed up small amt blood on one occasion but this hasn't recurred. Still having easy bruising - this hasn't changed. RE-REFERRAL HISTORY OF PRESENT ILLNESS (03/2019) Tara Yun says my counts are low, I feel awful. She has been having pain in her RUQ - this has been attributed surgical mesh bunching up. Says she feels tired all the time. Gets frequent bruises. Working 2-3 days per week and ~5 hours per day. Chronic joint soreness has gotten worse recently - especially her right shoulder. Only able to sleep a few hours at a time due to the pain. Tara is concerned she might have leukemia. INTERIM HPI Note: this visit is being conducted via telephone due to the ongoing COVID-19 situation. Tara isaware that this visit may be billed as for a regular in- person healthcare visit and has verbally consented to proceeding. Tara' last Hematology visit was ~ one year ago. She has had significnat health issues in the last 6 months. She is currently under the care of Dr. Paige at [facility] thus no further Hematology follow-up is necessary at [facility]. Tara describes hospitalization for pneumonia, kidney stones, COPD exacer bation and fluid overload. She is wearing oxygen continuously now. Most recently, Tara was hospitalized for portal vein thrombosis which was diagnosed after she presented with abdominal pain. She was started on Lovenox BID and dilaudid for pain and has follow-up in [place] next Tuesday as she will need close monitoring given her plt count in the 30-40,000 range. No bleeding, excessive bruising, melena or bleeding from any other source. No current F/C/S. REVIEW OF SYSTEMS Constitutional --Energy level: poor, just got out of the hospital last week --Pain: myalgias and arthralgias unchanged --Fevers/chills/sweats: No --Unexpected weight loss or gain: weight down resulting from recent modification of diuretic regimen Eyes - No change in vision Ears, nose, throat - No change hearing, no oral or throat pain or thrush Cardiovascular --SOB: No --ROBB: No --chest pain: No Respiratory --Cough: No --SOB, ROBB: as above Gastrointestinal --Appetite: good --Nausea/vomiting/diarrhea/constipation: No Genitourinary --Dysuria or hematuria: No Musculoskeletal --Muscle pain or weakness: global weakness and deconditioning --Joint pain or swelling: No Immune System --Recent infections: No Hematology/Lymph --Bruising/bleeding/melena: No --Enlarged nodes or other masses: No Skin --Rashes or petechiae: No Other ROS: All negative PROBLEM LIST Patient Active Problem List Diagnosis Code ??? Hypothyroidism E03.9 ??? Depression with anxiety F41.8 ??? Chronic viral hepatitis C B18.2 ??? Current every day smoker F17.200 ??? S/P hernia repair Z98.890, Z87.19 ??? Pancytopenia D61.818 ??? Cirrhosis of liver K74.60 ??? Obesity E66.9 ??? Hyperlipidemia E78.5 ??? Mediastinal adenopathy R59.0 ??? Hypovitaminosis D E55.9 ??? Back pain M54.9 ??? Asthma J45.909 ??? Grief F43.21 ??? Allergic rhinitis J30.9 ??? Abdominal wall hernia K43.9 ??? GERD (gastroesophageal reflux disease) K21.9 ??? Left ureteral stone N20.1 ??? Enlargement of spleen R16.1 ??? Anemia D64.9 ??? Anemia, iron deficiency D50.9 MEDICATIONS Current Outpatient Medications on File Prior to Visit Medication Sig Dispense Refill ??? enoxaparin (Lovenox) 40 mg/0.4 mL Syringe Inject 40 mg subcutaneously Daily. ??? furosemide (Lasix) 20 mg Tablet Take 20 mg by mouth Daily. ??? HYDROmorphone (Dilaudid) 2 mg Tablet Take by mouth. ??? methocarbamoL (ROBAXIN) 750 mg Tablet Take 750 mg by mouth Three times daily as needed. ??? sertraline (Zoloft) 50 mg Tablet Take 50 mg by mouth Daily. ??? spironolactone (ALDACTONE) 50 mg Tablet Take 50 mg by mouth Daily. ??? gabapentin (Neurontin) 100 mg Capsule ??? gabapentin (Neurontin) 300 mg Capsule ??? omeprazole (PriLOSEC) 20 mg Capsule, Delayed Release(E.C.) ??? ferrous sulfate 325 mg (65 mg iron) Tablet Take 325 mg by mouth daily. ??? UNABLE TO FIND Iron infusion ??? traZODone (DESYREL) 150 mg Tablet TAKE 1 TABLET BY MOUTH EVERYDAY AT BEDTIME 5 ??? fluticasone (FLOVENT) 110 mcg/actuation HFA Aerosol Inhaler Inhale 1 puff into the lungs 2 times daily. 1 Inhaler 3 ??? albuterol (PROAIR HFA) 90 mcg/actuation HFA Aerosol Inhaler Inhale 2 puffs into the lungs every6 hours as needed. Reported on 11/08/2016 1 Inhaler 3 ??? levothyroxine (SYNTHROID) 25 mcg Tablet Take 1 tablet by mouth daily. 30 tablet 0 ??? ondansetron (ZOFRAN, HYDROCHLORIDE,) 4 mg Tablet Take 1-2 tablets by mouth every 8 hours as needed for Nausea. 12 tablet 0 ??? albuterol (PROVENTIL) 2.5 mg /3 mL (0.083 %) Solution for Nebulization Take 2.5 mg by nebulization every 6 hours as needed. Reported on 11/08/2016 No current facility-administered medications on file prior to visit. ALLERGIES/ADR Allergies Allergen Reactions ??? Ketorolac Shortness Of Breath, Nausea Only and Rash ??? Metoclopramide Shortness Of Breath, Nausea Only and Other (See Comments) Jittery ??? Morphine Shortness Of Breath and Other (See Comments) Abd. Pain ??? Sulfa (Sulfonamide Antibiotics) Anaphylaxis, Itching and Rash ??? Aspirin Other (See Comments) Low platelets ??? Codeine Nausea Only ??? Lyrica [Pregabalin] Short of breathe ??? Nsaids (Non-Steroidal Anti-Inflammatory Drug) Other (See Comments) Platlet count goes low ??? Prochlorperazine ??? Tylenol [Acetaminophen] Other (See Comments) Liver issues PHYSICAL EXAM No physical exam was performed as part of this tele-health visit LABORATORY Last [facility] Labs 08/16/19 CBC - 1.1/12.5/32 ANC - 810 04/24/21 Labs from [facility] CBC - 1.92/11.3/38,000 (note: no ANC or diff) Creat - 1.18 Electrolytes - all wnl LFTs- unremarkable RADIOLOGY - No new images reviewed ASSESSMENT & PLANS # Pancytopenia - --Anemia improved with treatment of BECKI --WBC/ANC and platelet counts remain low --Based on her previous normal BM Bx and evaluations the most likely cause of Traa's low counts is her known hypersplenism and not a primary hematologic disorder. --At Tara' request, her hematological care has been assumed by providers at [facility] for convenience. ?? Total time associated with this phone visit (including pre- and post-call charting activities): 25 minutes Araceli Ribeiro, MSN, IMAGE PROCESSING ENGINEER Division of Hematology and Blood & Marrow Transplant [facility] documented in this encounter Plan of Treatment Upcoming Encounters Date Type Department Care Team (Late st Contact Info) Description 11/29/2024 1:30 PM EST Appointment XRay at [address] [place] [address] Laurent Cabrera MD [facility] [place] [address] 11/29/2024 2:20 PM EST Office Visit Orthopaedics at [facility] [place] [address] Laurent Cabrera MD [facility] [place] [address] documented as of this encounter Visit Diagnoses Diagnosis Pancytopenia Other pancytopenia Thrombocytopenia Thrombocytopenia, unspecified documented in this encounter Care Teams Torch Straightener And Heater Relationship Specialty Start Date End Date Alma Farfan MD [address] [place] [phone] PCP - General Family Medicine 04/06/19 11/04/24 documented as of this encounter
--- OUTSIDE RECORDS SUMMARY | 2024-11-22 17:32 | XMS_ITS | Encounter Summary ---
Author Organization [facility] Address [address] [place] [address] Care Team Providers Care Chicken Vaccinator Name Role Phone Unavailable Primary Care Provider Unavailabl e Encounter Details Date Type Department Care Team (Late st Contact Info) Description 12/15/2006 Results Only [facility] [address] [place] [address] Johnnie Rivero MD [address] [place] [address] 2 [place], [place] [phone] Social History Tobacco Use Types Packs/Day Years [...] Visit [facility] Ophthalmology - [facility] [address], [place] [address] Gagandeep Rome MD [address] [facility], Level 5 [place] [phone] 02/11/2025 13:30 EDT Telemedicine [facility] Hematology & Oncology - [facility] [address] [place] [address] Dana Padilla MD 111 [facility], Level [address] [place] [phone] documented as of this encounter Procedures Procedure Name Priority Date/Time Associated Diagnosis Comments HPV DETECTION, HIGH RISK TYPES Routine 12/15/2006 9:14 EST CYTOPATHOLOGY Routine 12/15/2006 0:00 EST documented in this encounter Results * HUMAN PAPILLOMA VIRUS DNA TEST (12/15/2006 9:14 EST) Specimen Description Cervix, ThinPrep vial [facility] Result Negative for HPV types 16, 18, 31, 33, 35, 39, 45, 51, 52, 56, 58, 59, and 68. [facility] Report Status Final [id number] [facility] 12/15/2006 9:14 EST 12/20/2006 9:14 EST Johnnie Rivero MD MICROBIOLOGY - GENERAL ORDERABLE S Final Result [facility] [address] [place] [address] * CYTOPATHOLOGY (12/15/2006 0:00 EST) Pathology Report: CYTOPATHOLOGY REPORT Reports generated via electronic interface contain original data; however they are lacking the format of the original report. Caution should be taken when reading/interpreti ng unformatted reports. Name: ? YUN, PHYLISS E ? Accession #: ? [id number] : ? 1960 (Age: 46) ??F ?Collect Date: ? 12/15/2006 Location: ? [facility] ? Receive Date: ? 12/16/2006 Provider: ?JOHNNIE RIVERO MD Copy to: ? Specimen/Source: ?ThinPrep Pap Test, Vagina, processed on [employer] ThinPrep Imaging System, with manual evaluation Last Menstrual Period: ? 1986 Treatment History: ? ERIC: RSO 1986 Other: ? Additional clinical information: Pap wnl HPVDX - HPV testing requested regardless of diagnosis on current ThinPrep Pap test. ? SPECIMEN ADEQUACY ? Satisfactory for Evaluation - assessment of transformation zone component not applicable ( e.g. atrophy, vaginal sample, hysterectomy) - scant squamous epithelial component secondary to excessive inflammation GENERAL CATEGORIZATION ? Negative for Intraepithelial Lesion or Malignancy ? Document reviewed and electronically signed by: ? BERNARD Roe(ASCP) ? Report Date: ??12/19/2006 10:10 End of Report [facility] 12/15/2006 12/16/2006 us Johnnie Rivero MD PATHOLOGY ORDERABLES Final Resul t [facility] [address] [place] [address] documented in this encounter Visit Diagnoses Not on filedocumented in this encounter
--- OUTSIDE RECORDS SUMMARY | 2024-11-22 17:32 | XMS_ITS | Encounter Summary ---
Author Organization [facility] [address] [place] [address] Care Team Providers Care Flowers Salesperson Name Role Phone Alma Farfan MD Primary Care Provider [phone] Encounter Details Date Type Department Care Team (Late st Contact Info) Description 05/05/2020 Orders Only Hematology [place] [phone] Dom Zeng MD Pancytopenia (Primary Dx) Social History Tobacco Use Types [...] 11/29/2024 1:30 PM EST Appointment XRay at [address] [place] [phone] Laurent Cabrera MD [facility] [place] [address] 11/29/2024 2:20 PM EST Office [place] [phone] Laurent Cabrera MD [facility] [place] [address] documented as of this encounter Visit Diagnoses Diagnosis Pancytopenia- Primary Other pancytopenia documented in this encounter Care Teams Flowers Salesperson Relationship Specialty Start Date End Date Alma Farfan MD [address] [place] [address] PCP - General Family Medicine 04/06/19 11/04/24 documented as of this encounter
--- OUTSIDE RECORDS SUMMARY | 2024-11-22 17:32 | XMS_ITS | Encounter Summary ---
Author Organization [facility] Address [address] [place] [address] Care Team Providers Care Tetryl Boiling Tub Operator Name Role Phone Unavailable Primary Care Provider Unavailabl e Encounter Details Date Type Department Care Team (Late st Contact Info) Description 11/30/1999 Results Only [facility] [address] [place] [address] Johnnie Rivero MD [address] [place] [address] 2 [place], [place] [phone] Social History Tobacco Use Types Packs/Day Years [...] EST Office Visit [facility] Ophthalmology - [facility] [address] [place], [place] [address] Gagandeep Rome MD [address] [facility], [address] [place] [phone] 02/11/2025 13:30 EDT Telemedicine [facility] Cancer Center Hematology & Oncology - [address] [address] Dana Padilla MD [address] [place] [address] [address] [place] [address] documented as of this encounter Procedures Procedure Name Priority Date/Time Associated Diagnosis Comments CYTOPATHOLOGY Routine 11/30/1999 9:55 EST documented in this encounter Results * CYTOPATHOLOGY (11/30/1999 9:55 EST) Pathology Report: CYTOPATHOLOGY REPORT Reports generated via electronic interface contain original data; however they are lacking the format of the original report. Caution should be taken when reading/interpreti ng unformatted reports. Name: ? RISSA YUN ? Accession #: ? [id number] : ? 1960 (Age: 39) ??F ?Collect Date: ? 11/30/1999 Location: ?Receive Date: ? 11/30/1999 Provider: ?JOHNNIE RIVERO MD Copy to: ?JOHNNIE RIVERO MD ? Specimen/Source: ?Pap Smear (One Slide) Last Menstrual Period: ? GYNECOLOGIC ??CYTOPATHOLOGY ??REPORT Name: MANOJ YUN ?[facility] : 1960 ?? 39Y F ?Client ID: ?? SS#: [id number] ? Clinician: JOHNNIE RIVERO MD ?? Location: [facility] ??Copy to: ?? Specimen: ?Pap Smear (One Slide) ? Source: Vagina ?Collected: 11/26/99 ? Received: 11/30/1999 ?LMP: 1987 ? Hormone Therapy: No ? : No ? Radiation Therapy: No ?? Post : No ?Chemotherapy: No ?IUD: No ? Prev Abnormal Pap: No ?? Clinical Hx: ?(Blank godwin indicate information not provided on requisition) SPECIMEN ADEQUACY: ? Satisfactory For Evaluation ?? GENERAL CATEGORIZATION: ? WITHIN NORMAL LIMITS ? Reviewed And Electronically Signed By: ? Stone Eaton, CT(ASCP) ? Report Date: ?? 11/30/1999 [employer] Archived Tests - Final Diagnosis Text Field: Clinical History : ? Document reviewed and electronically signed by: ? Conversion ? Report Date: ??11/30/1999 00:00 End of Report [facility] 11/30/1999 9:55 EST 11/30/1999 9:56 EST us Johnnie Rivero MD PATHOLOGY ORDERABLES Final Resul t [facility] [address] [place] [address] documented in this encounter Visit Diagnoses Not on filedocumented in this encounter
--- OUTSIDE RECORDS SUMMARY | 2024-11-22 17:32 | XMS_ITS | Encounter Summary ---
Author Organization [facility] Address [address] [place] [address] Care Team Providers Care Notary Public Name Role Phone Jayden Quintanilla MD Primary Care Provider [phone] Reason for Visit * Reason Onset Date Comments Appointment Related 07/26/2014 Encounter Details Date Type Department Care Team (Late st Contact Info) Description 07/26/[address] [facility] Urology - [facility] [address] [place], [place] [phone] Vinicius Dawson MD [address] [place] [phone] Appointment Related Social History Tobacco Use Types Packs/Day Years Used Date Smoking Tobacco: Never Assessed Comments Unknown Sex and Gender Information Value Date Recorded Sex Assigned at Female 03/01/2024 9:25 EDT Legal Sex Female 18:05 EST Gender Identity Female 10/03/2019 16:15 EST Sexual Orientation Not on file documented as of this encounter Miscellaneous Notes * Telephone Encounter - Araceli Hendricks - 07/26/2014 1340 EDT Number not in service. Attempting to call regarding no showed appointment. Araceli Hendricks documented in this encounter Plan of Treatment Upcoming Encounters Date Type Department Care Team (Late st Contact Info) Description 01/04/2025 13:[address] [facility] Ophthalmology - [address] [phone] Gagandeep Rome MD [address] [place] [address], [address] [place] [phone] 02/11/2025 13:30 EDT Telemedicine [facility] Hematology & Oncology - [address] [phone] Dana Padilla MD [address] [place] [address], [address] [place] [address] documented as of this encounter Visit Diagnoses Not on filedocumented in this encounter Care Teams Notary Public Relationship Specialty Start Date End Date Jayden Quintanilla MD [address] [place] [address] PCP - General 07/23/14 09/13/14 documented as of this encounter
--- OUTSIDE RECORDS SUMMARY | 2024-11-22 17:32 | XMS_ITS | Encounter Summary ---
Author Organization [facility] [address] [place] [address] Care Team Providers Care Flight Test Supervisor Name Role Phone Alma Farfan MD Primary Care Provider [phone] Encounter Details Date Type Department Care Team (Late st Contact Info) Description 06/05/2024 Interpretation Only Radiology Library at [facility] [place] [address] Mat Iglesias MD [facility] GASTROENTEROLOGY [place] [phone] Social History Tobacco Use Types Packs/Day Years Used Date Smoking Tobacco: Never Assessed Sex and Gender Information Value Date Recorded Sex Assigned at Not on file Gender Identity Not on file Sexual Orientation Not on file documented as of this encounter Plan of Treatment Upcoming Encounters Date Type Department Care Team (Late st Contact Info) Description 11/29/2024 1:30 PM EST Appointment XRay at [address] [place] [phone] Laurent Cabrera MD [facility] [place] [address] 11/29/2024 2:20 PM EST Office Visit Orthopaedics at [facility] [place] [phone] Laurent Cabrera MD [facility] [place] [address] documented as of this encounter Procedures Procedure [...] Iglesias MD IMG FILM LIBRARY ORD ERABLES [place], [place] documented in this encounter Visit Diagnoses Not on filedocumented in this encounter Care Teams Flight Test Supervisor Relationship Specialty Start Date End Date Alma Farfan MD [address] [place] [phone] PCP - General Family Medicine 04/06/19 11/04/24 documented as of this encounter
--- OUTSIDE RECORDS SUMMARY | 2024-11-22 17:32 | XMS_ITS | Encounter Summary ---
Author Organization [facility] [address] [place] [address] Care Team Providers Care Document Control Associate Name Role Phone Alma Farfan MD Primary Care Provider [phone] Encounter Details Date Type Department Care Team (Late st Contact Info) Description 06/05/2024 9:45 AM EDT Ancillary Procedure Radiology Library at [facility] [place] [address] Mat Iglesias MD [facility] [place] [address] Social History Tobacco Use Types Packs/Day Years Used Date Smoking Tobacco: Never Assessed Sex and Gender Information Value Date Recorded Sex Assigned at Not on file Gender Identity Not on file Sexual Orientation Not on file documented as of this encounter Plan of Treatment Upcoming Encounters Date Type Department Care Team (Late st Contact Info) Description 11/29/2024 1:30 PM EST Appointment XRay at [address] [place] [phone] Laurent Cabrera MD [facility] [place] [address] 11/29/2024 2:20 PM EST Office Visit Orthopaedics at [facility] [place] [phone] Laurent Cabrera MD [facility] [place] [address] documented as of this encounter Procedures Procedure [...] Iglesias MD IMG FILM LIBRARY ORD ERABLES [place], [place] documented in this encounter Visit Diagnoses Not on filedocumented in this encounter Care Teams Document Control Associate Relationship Specialty Start Date End Date Alma Farfan MD [address] [place] [phone] PCP - General Family Medicine 04/06/19 11/04/24 documented as of this encounter
--- OUTSIDE RECORDS SUMMARY | 2024-11-22 17:32 | XMS_ITS | Encounter Summary ---
[place] [address] Care Team Providers Care Partner Alliance Manager Name Role Phone Mirna Guerrero Primary Care Provider [phone] Reason for Referral * Consultation (Routine) - Authorized Specialty Diagnoses / Procedures Referred By Serene t Referred To Contact Orthopaedics Diagnoses Shoulder pain, unspecified chronicity, unspecified laterality [facility] FOR EVAL OF RTSA CONSULT R [facility]. THANK YOU! Leonora Oates APRN [address] [place] [address] [facility] [address] [place] [phone] Referral ID Status Reason Start Date Expiration Date Visits Requested Visits Authorized [id number] Authorized Consult, Test & Treat PCP Updated and/or Approved 10/05/2025 6 6 Encounter Details Date Type Department Care Team (Late st Contact Info) Description 11/05/2024 Transcribe Orders eDH Incoming Referrals [phone] Leonora Oates APRN [address] [place], [place] [id number] Shoulder pain, unspecified chronicity, unspecified laterality Social History Tobacco Use Types Packs/Day Years [...] 11/29/2024 1:30 PM EST Appointment XRay at [address] [place] [address] Laurent Cabrera MD [facility] [place] [address] 11/29/2024 2:20 PM EST Office Visit Orthopaedics at [facility] [place] [place] [address] Laurent Cabrera MD [facility] [place] [address] Scheduled Referrals Name Type Priority Associated Diagnoses Orde r Schedule Referral to Orthopaedics Outpatient Referral Routine Shoulder pain, unspecified chronicity, unspecified laterality Ordered: 11/05/2024 documented as of this encounter Visit Diagnoses Diagnosis Shoulder pain, unspecified chronicity, unspecified laterality documented in this encounter Care Teams Partner Alliance Manager Relationship Specialty Start Date End Date Mirna Guerrero [place] [address] [place] [id number] PCP - General Family Medicine 11/05/24 documented as of this encounter
--- OUTSIDE RECORDS SUMMARY | 2024-11-22 17:32 | XMS_ITS | Encounter Summary ---
Author Organization [facility] Address [facility] [address] [place] [address] Care Team Providers Care Regional Vice President Surgical Sales Name Role Phone Alma Farfan MD Primary Care Provider [phone] Encounter Details Date Type Department Care Team (Late st Contact Info) Description 05/02/2020 3:30 PM EDT TH Visit (TeleHealth) [place]ematology [place] [address] Dom Zeng MD Stearns, Diane M, [employer] [facility] [place] [address] Pancytopenia; Enlargement of spleen Social History Tobacco Use Types Packs/Day Years [...] as of this encounter Progress Notes * Dom Zeng MD - 05/02/2020 3:30 PM EDT HEMATOLOGY/BMT CONSULTATION VISIT NOTE CHIEF COMPLAINT: Tara Yun is a 59 y.o. female originally referred by Alma Farfan [...] and found to be orthostatic in the [place] ER. From Dr. Euceda's phone note from [...] sx have not recurred. Now living in [place], [place]. Has had episodes of hypoglycemia that [...] visit and has verbally consented to proceeding. Tara says she has not felt well recently, but is doing better now - [facility] possible sleep apnea and fluiud overload, she says. Now on on 2L nc O2 at night. Sleepimg much better and energy improved. No bleeding, bruising, melena or bleeding from any other source. No current F/C/S. Says that she has lost many pounds on diuretics - lasix added to her regimen recently but otherwise her weight had been stable. 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 Using all appropriate COVD precautions. FH No changes REVIEW OF SYSTEMS Constitutional --Energy level: poor --Pain: joints --Fevers/chills/sweats: No --Unexpected weight loss or gain: No Eyes - No change in vision Ears, nose, throat - No change hearing, no oral or throat pain or thrush Cardiovascular --SOB: No --ROBB: No --chest pain: No Respiratory --Cough: No --SOB, ROBB: as above Gastrointestinal --Appetite: good --Nausea/vomiting/diarrhea/constipation: No Genitourinary --Dysuria or hematuria: No Musculoskeletal --Muscle pain or weakness: No --Joint pain or swelling: No Immune System [...] to Visit Medication Sig Dispense Refill ??? ferrous sulfate 325 mg (65 mg iron) Tablet Take 325 mg by mouth daily. ??? sucralfate (CARAFATE) 1 gram Tablet Take 1 tablet by mouth 4 times daily as needed (prn abdominal pain) for up to 360 days. 360 tablet 1 ??? UNABLE TO FIND Iron infusion ??? [...] Tylenol [Acetaminophen] Other (See Comments) Liver issues SOCIAL HISTORY History Substance Use Topics ??? Smoking status: Not on file ??? Smokeless tobacco: Not on file ??? Alcohol Use: Not on file FAMILY HISTORY Family History Problem Relation Age of Onset ??? Type 2 Diabetes Mother ??? Coronary Artery Disease Maternal Grandmother ??? Coronary Artery Disease Maternal Grandfather ??? Hypertension Maternal Grandfather ??? Type 2 Diabetes Brother ??? Asthma Brother PHYSICAL EXAM N/A LABORATORY Last [facility] 08/16/19 CBC - 1.1/12.5/32 ANC - 810 04/28/20 Labs from [facility] CBC - 2.14/11.37 (note: no ANC or diff) TSH - 67.09, T4, free - 0.9 Alpha-1 AT - 149 (wnl) Creat - 0.86 Electrolytes - all wnl INR - 1.3 RADIOLOGY - None ASSESSMENT & PLANS 1. Pancytopenia - Given normal BM Bx in 2012, anemia has been attributed to iron deficiency - now resolved - and hypersplenism. --Based on her previous normal BM Bx and evaluations the most likely cause of Tara's low counts is her known hypersplenism and not a primary hematologic disorder. ?? 2. 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 --This was not recently tested so we will repeat it at her next visit. ?? 3. Iron deficiency anemia - Tara continues to take daily oral iron and her most recent tests show adequate iron stores. ?? 5. Counseling - we reviewed the results of Tara's labs and that everything is stable and that there are no signs of a more serious underlying primary hematologic disorder. ?? 6. Follow-up - Gena and I discussed f/u and that her PCP could follow her counts with us a back-up but she says she'd prefer to continue to follow with us on a yearly basis, which we will arrange for. Total time associated with this phone visit (including pre- and post-call charting activities): 25 minutes Dom Zeng MD Division of Hematology and Blood & Marrow Transplant [facility] documented in this encounter Plan of Treatment Upcoming Encounters Date Type Department Care Team (Late st Contact Info) Description 11/29/2024 1:30 PM EST Appointment XRay at [address] [place] [phone] Laurent Cabrera MD [facility] [place] [address] 11/29/2024 2:20 PM EST Office Visit Orthopaedics at [facility] [place] [address] Laurent Cabrera MD [facility] [place] [address] documented as of this encounter Visit Diagnoses Diagnosis Pancytopenia Other pancytopenia Enlargement of spleen Splenomegaly documented in this encounter Care Teams Regional Vice President Surgical Sales Relationship Specialty Start Date End Date Alma Farfan MD [address] [place] [address] [place] [phone] PCP - General Family Medicine 04/06/19 11/04/24 documented as of this encounter
--- OUTSIDE RECORDS SUMMARY | 2024-11-22 17:33 | XMS_ITS | Encounter Summary ---
Author Organization [facility] [place] [address] [place] [address] Care Team Providers Care Hat Stock Laminating Machine Operator Name Role Phone Alma Farfan MD Primary Care Provider [phone] Encounter Details Date Type Department Care Team (Latest Contact Info) Description 04/06/2019 1:36 PM EDT - 04/06/2019 11:59 PM EDT Hospital Encounter Hematology and Oncology at [facility] [place] [phone] Pancytopenia; Anemia, unspecified type; Enlargement of spleen; Iron deficiency anemia, unspecified iron deficiency anemia type; MGUS (monoclonal gammopathy of unknown significance); Hepatic cirrhosis, unspecified hepatic cirrhosis type, unspecified whether ascites present Discharge Disposition: Home Social History Tobacco Use Types Packs/Day Years Used Date Smoking Tobacco: Some Days Cigarettes 0.5 30 Smokeless Tobacco: Never Comments:Working on cutting down. Alcohol Use Standard Drinks/Week Comments No 0 (1 standard drink = 0.6 oz pure alcohol) No hx of heavy ETOH. 1 drink 2-3 times a year. Last ETOH x 1 month ago. Sex and Gender Information Value Date Recorded Sex Assigned at Not on file Gender Identity Not on file Sexual Orientation Not on file documented as of this encounter Medications at Time of Discharge Medication Sig Dispensed Refills Start Date End Date traZODone (DESYREL) 150 mg Tablet TAKE 1 TABLET BY MOUTH EVERYDAY AT BEDTIME 5 03/22/2019 fluticasone (FLOVENT) 110 mcg/actuation HFA Aerosol Inhaler Inhale 1 puff into the lungs 2 times daily. 1 Inhaler 3 11/23/2016 albuterol (PROAIR HFA) 90 mcg/actuation HFA Aerosol Inhaler Inhale 2 puffs into the lungs every 6 hours as needed. Reported on 11/08/2016 1 Inhaler 3 11/23/2016 levothyroxine (SYNTHROID) 25 mcg TabletIndications:Panc ytopenia Take 1 tablet by mouth daily. 30 tablet 11/23/2016 ondansetron (ZOFRAN, HYDROCHLORIDE,) 4 mg Tablet Take 1-2 tablets by mouth every 8 hours as needed for Nausea. 12 tablet 11/20/2016 albuterol (PROVENTIL) 2.5 mg /3 mL (0.083 %) Solution for Nebulization Take 2.5 mg by nebulization every 6 hours as needed. Reported on 11/08/2016 ERGOCALCIFEROL, VITAMIN D2, (VITAMIN D ORAL) Take 1,000 Units by mouth daily. 04/18/2019 FERROUS SULFATE, DRIED (IRON, DRIED, ORAL)Indications:Pancy topenia Take 65 mg by mouth 3 times daily. 04/18/2019 documented as of this encounter Plan of Treatment Upcoming Encounters Date Type Department Care Team (Late st Contact Info) Description 11/29/2024 1:30 PM EST Appointment XRay at [address] [place] [address] Laurent Cabrera MD [facility] [place] [address] 11/29/2024 2:20 PM EST Office Visit Orthopaedics at [facility] [place] [address] Laurent Cabrera MD [facility] [place] [address] documented as of this encounter Procedures Procedure Name Priority Date/Time Associated Diagnosis Comments IMMUNOGLOBULIN FREE LIGHT CHAINS, SERUM Routine 04/06/2019 1:58 PM EDT Pancytopenia Anemia, unspecified type Enlargement of spleen Iron deficiency anemia, unspecified iron deficiency anemia type MGUS (monoclonal gammopathy of unknown significance) Hepatic cirrhosis, unspecified hepatic cirrhosis type, unspecified whether ascites present IMMUNOGLOBULINS, QUANTITATIVE STAT 04/06/2019 1:58 PM EDT Pancytopenia Anemia, unspecified type Enlargement of spleen Iron deficiency anemia, unspecified iron deficiency anemia type MGUS (monoclonal gammopathy of unknown significance) Hepatic cirrhosis, unspecified hepatic cirrhosis type, unspecified whether ascites present HEMOGRAM STAT 04/06/2019 1:58 PM EDT Pancytopenia Anemia, unspecified type Enlargement of spleen Iron deficiency anemia, unspecified iron deficiency anemia type MGUS (monoclonal gammopathy of unknown significance) Hepatic cirrhosis, unspecified hepatic cirrhosis type, unspecified whether ascites present DIFFERENTIAL, AUTOMATED STAT 04/06/2019 1:58 PM EDT Pancytopenia Anemia, unspecified type Enlargement of spleen Iron deficiency anemia, unspecified iron deficiency anemia type MGUS (monoclonal gammopathy of unknown significance) Hepatic cirrhosis, unspecified hepatic cirrhosis type, unspecified whether ascites present IRON AND TIBC Routine 04/06/2019 1:58 PM EDT Pancytopenia Anemia, unspecified type Enlargement of spleen Iron deficiency anemia, unspecified iron deficiency anemia type MGUS (monoclonal gammopathy of unknown significance) Hepatic cirrhosis, unspecified hepatic cirrhosis type, unspecified whether ascites present SEDIMENTATION RATE STAT 04/06/2019 1: 58 PM EDT Pancytopenia Anemia, unspecified type Enlargement of spleen Iron deficiency anemia, unspecified iron deficiency anemia type MGUS (monoclonal gammopathy of unknown significance) Hepatic cirrhosis, unspecified hepatic cirrhosis type, unspecified whether ascites present CBC (WITH DIFF) STAT 04/06/2019 1:58 PM EDT Pancytopenia Anemia, unspecified type Enlargement of spleen Iron deficiency anemia, unspecified iron deficiency anemia type MGUS (monoclonal gammopathy of unknown significance) Hepatic cirrhosis, unspecified hepatic cirrhosis type, unspecified whether ascites present PROTEIN ELECTROPHORESIS, SERUM STAT 04/06/2019 1:58 PM EDT Pancytopenia Anemia, unspecified type Enlargement of spleen Iron deficiency anemia, unspecified iron deficiency anemia type MGUS (monoclonal gammopathy of unknown significance) Hepatic cirrhosis, unspecified hepatic cirrhosis type, unspecified whether ascites present FOLATE, SERUM Routine 04/06/2019 1:58 PM EDT Pancytopenia Anemia, unspecified type Enlargement of spleen Iron deficiency anemia, unspecified iron deficiency anemia type MGUS (monoclonal gammopathy of unknown significance) Hepatic cirrhosis, unspecified hepatic cirrhosis type, unspecified whether ascites present FERRITIN Routine 04/06/2019 1:58 PM EDT Pancytopenia Anemia, unspecified type Enlargement of spleen Iron deficiency anemia, unspecified iron deficiency anemia type MGUS (monoclonal gammopathy of unknown significance) Hepatic cirrhosis, unspecified hepatic cirrhosis type, unspecified whether ascites present VITAMIN B12 STAT 04/06/2019 1:58 PM EDT Pancytopenia Anemia, unspecified type Enlargement of spleen Iron deficiency anemia, unspecified iron deficiency anemia type MGUS (monoclonal gammopathy of unknown significance) Hepatic cirrhosis, unspecified hepatic cirrhosis type, unspecified whether ascites present COMPREHENSIVE METABOLIC PANEL Routine 04/06/2019 1:58 PM EDT Pancytopenia Anemia, unspecified type Enlargement of spleen Iron deficiency anemia, unspecified iron deficiency anemia type MGUS (monoclonal gammopathy of unknown significance) Hepatic cirrhosis, unspecified hepatic cirrhosis type, unspecified whether ascites present documented in this encounter Results * (ABNORMAL) Differential, Automated (04/06/2019 1:58 PM EDT) Neutrophil % 71.7 % [facility] Neutrophil Absolute 0.61(L) 1.70 - 6.10 x10(3)/mc L [facility] Lymph % 20.0 % [facility] Lymphocytes Abs 0.2(L) 0.9 - 3.2 x10(3)/mc L [facility] Monocyte % 7.1 % [facility] Monocyte Abs 0.1(L) 0.3 - 0.9 x10(3)/mc L [facility] Eos % 1.2 % [facility] Eosinophils Abs 0.0 0.0 - 0.4 x10(3)/mc L [facility] Basophil % 0.0 % [facility] Baso Absolute 0.0 0.0 - 0.1 x10(3)/mc L [facility] Immature Gran % 0.00 % [facility] Comment: Immature granulocytes(IG's)percentage and absolute count will include metamyelocytes, myelocytes, and promyelocytes. Blood smears from CBCs yielding IG's will be scanned manually for concordance. If this scan disagrees with the automated IG or if promyelocytes are noted, a manual differential will be performed. Immature Gran Absolute 0.00 0.00 - 0.04 x10(3)/ L [facility] Blood specimen (specimen) 04/06/2019 1:58 PM EDT 04/06/2019 2:11 PM EDT Narrative Resulting Agency Comment Spec In Lab Dom Zeng MD HEMATOLOGY ORDER YANN [facility] [place] [address] * (ABNORMAL) Hemogram (04/06/2019 1:58 PM EDT) White Blood Cell 0.8(Criti gee) 4.0 - 9.5 x10(3)/ L [facility] Red Blood Cell 3.79(L) 4.00 - 5.21 x10(6)/mc L [facility] Hemoglobin 10.5(L) 11.7 - 15.5 gm/dL [facility] Hematocrit 33.7(L) 35.7 - 45.8 % [facility] Mean Cell Volume 88.9 82.6 - 94.4 fL [facility] Mean Cell Hemoglobin 27.7 27.1 - 32.0 pg [facility] Mean Cell Hemoglobin Concentration 31.2(L) 31.7 - 35.0 gm/dL [facility] Platelet 40(L) 145 - 357 x10(3)/ L [facility] RDW Standard Deviation 52.3(H) 37.0 - 46.0 fL [facility] RDW coefficient of variation 16.0(H) 11.5 - 14.1 % [facility] Mean Platelet Volume 9.8 7.6 - 12.9 fL [facility] NRBC Absolute 0.000 0.000 - 0.000 x10(3)/mc L [facility] Blood specimen (specimen) 04/06/2019 1:58 PM EDT 04/06/2019 2:11 PM EDT Narrative Resulting Agency Comment Spec In Lab Dom Zeng MD HEMATOLOGY ORDER YANN [facility] [place] [address] * Comprehensive metabolic panel (non-fasting) (04/06/2019 1:58 PM EDT) Glucose 130 65 - 199 mg/dL [facility] Comment:Diabetes: >=200 mg/d L plus symptoms Blood Urea Nitrogen 11 8 - 18 mg/dL [facility] Creatinine 0.90 0.70 - 1.20 mg/dL [facility] Sodium 143 135 - 145 mmol/L [facility] Potassium 4.0 3.5 - 5.0 mmol/L [facility] Comment: Please note: ??Patients with WBC >100,000 may have falsely elevated Potassium levels. ??For accurate Potassium quantification in these patients send serum separator tube (gold top) for subsequent determinations. ??Contact the Clinical Chemistry Laboratory if there are any questions. Chloride 104 98 - 107 mmol/L [facility] Carbon Dioxide 26 22 - 31 mmol/L [facility] Anion Gap 13 5 - 15 mmol/L [facility] Calcium 8.5 8.5 - 10.5 mg/dL [facility] Protein, Total 6.6 6.1 - 8.0 gm/dL [facility] Albumin 3.6 3.2 - 5.2 gm/dL [facility] Aspartate Aminotransferase 16 0 - 30 unit/L [facility] Alanine Aminotransferase 13 0 - 30 unit/L [facility] Alkaline Phosphatase 79 40 - 104 unit/L [facility] Bilirubin, Total 0.5 0.2 - 1.3 mg/dL [facility] Est Glomerular Filtration Rate 70 >=60 mL/min/1. 73 m?? [facility] Comment: The eGFR was calculated using the CKD-EPI equation. As with all creatinine based estimates of kidney function, eGFR values calculated with the CKD-EPI equation are not accurate in patients with acute kidney failure, extremes of body mass or the acutely ill. [email or web address] eGFR 82 >=60 mL/min/1. 73 m?? [facility] Comment: The eGFR was calculated using the CKD-EPI equation. As with all creatinine based estimates of kidney function, eGFR values calculated with the CKD-EPI equation are not accurate in patients with acute kidney failure, extremes of body mass or the acutely ill. [email or web address] Blood specimen (specimen) 04/06/2019 1:58 PM EDT 04/06/2019 2:11 PM EDT Narrative Resulting Agency Comment Spec In Lab Dom Zeng MD CHEMISTRY ORDERA BLES [facility] [place] [address] * Protein Electrophoresis, serum (04/06/2019 1:58 PM EDT) Total Prot Electrophoresis 6.6 6.1 - 8.0 gm/dL [facility] Albumin Electrophoresis 4.16 3.60 - 6.00 gm/dL [facility] Alpha 1 Globulin 0.19 0.10 - 0.30 gm/dL [facility] Alpha 2 Globulin 0.51 0.40 - 0.90 gm/dL [facility] Beta Globulin 0.63 0.50 - 1.00 gm/dL [facility] Gamma Globulin 1.10 0.50 - 1.30 gm/dL [facility] M1 Band None Detected None Detected [facility] Blood specimen (specimen) 04/06/2019 1:58 PM EDT 04/06/2019 2:11 PM EDT Narrative Resulting Agency Comment Spec In Lab Dom Zeng MD CHEMISTRY ORDERA BLES Performing Organization Address [facility] de Phone Number [facility] [place] [address] * (ABNORMAL) Immunoglobulins, Quantitative (04/06/2019 1:58 PM EDT) Immunoglobulin G 1,089 700 - 1,600 mg/dL [facility] Comment: Pediatric Reference Intervals obtained from the [employer] Reference Interval project. http://www.[address].ca/caliperproject/index.html IgA 483(H) 70 - 400 mg/dL [facility] IgM 51 40 - 230 mg/dL [facility] Blood specimen (specimen) 04/06/2019 1:58 PM EDT 04/06/2019 2:11 PM EDT Narrative Resulting Agency Comment Spec In Lab Dom Zeng MD CHEMISTRY ORDERA BLES Performing Organization Address [facility] Phone Number [facility] [place] [address] * (ABNORMAL) Free Light Chains, Serum (04/06/2019 1:58 PM EDT) [place] Free Light Chains 4.95(H) 0.81 - 2.98 mg/dL [facility] Lambda Free Light Chains 2.08(H) 0.86 - 1.99 mg/dL [facility] [place]/Lambda Free Light Chain Ratio 2.3798 0.5000 - 2.4300 [facility] Comment: Please be advised that following a multi-institution study the reference interval for Serum Free Light Chains was updated December 02, 2017. Blood specimen (specimen) 04/06/2019 1:58 PM EDT 04/06/2019 2:11 PM EDT Narrative Resulting Agency Comment Spec In Lab Dom Zeng MD CHEMISTRY ORDERA BLES Performing Organization Address [facility]/[employer] de Phone Number [facility] [place] [address] * Ferritin (04/06/2019 1:58 PM EDT) Ferritin 39 30 - 400 ng/mL [facility] Comment: Pediatric reference ranges not verified at [facility], interpret with caution. Reference ranges for females greater than 50 years of age approach values for men, i.e., 30-400 ng/mL. Blood specimen (specimen) 04/06/2019 1:58 PM EDT 04/06/2019 2:11 PM EDT Narrative Resulting Agency Comment Spec In Lab Dom Zeng MD CHEMISTRY ORDERA BLES Performing Organization Address [facility]/[employer] de Phone Number [facility] [place] [address] * (ABNORMAL) Iron and TIBC (04/06/2019 1:58 PM EDT) Iron 40 30 - 150 mcg/dL [facility] TIBC 299 250 - 450 mcg/dL [facility] Iron Saturation 13(L) 20 - 50 % [facility] Blood specimen (specimen) 04/06/2019 1:58 PM EDT 04/06/2019 2:11 PM EDT Narrative Resulting Agency Comment Spec In Lab Dom Zeng MD CHEMISTRY ORDERA BLES Performing Organization Address City/[facility]/[employer] de Phone Number [facility] [place] [address] * Sedimentation rate (04/06/2019 1:58 PM EDT) Sedimentation Rate Automated 8 0 - 20 mm/hr [facility] Blood specimen (specimen) 04/06/2019 1:58 PM EDT 04/06/2019 2:11 PM EDT Narrative Resulting Agency Comment Spec In Lab Dom Zeng MD HEMATOLOGY ORDER YANN Performing Organization Address City/[facility]/ZIP Co de Phone Number [facility] [place] [address] * Vitamin B12 (04/06/2019 1:58 PM EDT) Vitamin B12 399 232 - 1,245 pg/mL [facility] Blood specimen (specimen) 04/06/2019 1:58 PM EDT 04/06/2019 2:11 PM EDT Narrative Resulting Agency Comment Spec In Lab Dom Zeng MD CHEMISTRY ORDERA BLES Performing Organization Address [facility]/[employer] de Phone Number [facility] [place] [address] * Folate, serum (04/06/2019 1:58 PM EDT) Folate 9.0 4.8 - 24.2 ng/mL [facility] Blood specimen (specimen) 04/06/2019 1:58 PM EDT 04/06/2019 2:11 PM EDT Narrative Resulting Agency Comment Spec In Lab Dom Zeng MD CHEMISTRY ORDERA BLES Performing Organization Address City/[facility]/ZIP Co de Phone Number [facility] [place] [address] documented in this encounter Visit Diagnoses Diagnosis Pancytopenia Other pancytopenia Anemia, unspecified type Enlargement of spleen Splenomegaly Iron deficiency anemia, unspecified iron deficiency anemia type MGUS (monoclonal gammopathy of unknown significance) Monoclonal paraproteinemia Hepatic cirrhosis, unspecified hepatic cirrhosis type, unspecified whether ascites present documented in this encounter Care Teams Hat Stock Laminating Machine Operator Relationship Specialty Start Date End Date Alma Farfan MD [address] [place] [phone] PCP - General Family Medicine 04/06/19 11/04/24 documented as of this encounter
--- OUTSIDE RECORDS SUMMARY | 2024-11-22 17:33 | XMS_ITS | Encounter Summary ---
Author Organization [facility] [address] [place] [address] Care Team Providers Care Process Architect Name Role Phone Lilliana Goyal MD, Jayden Leonardo Primary Care Provider + Encounter Details Date Type Department Care Team (Late st Contact Info) Description 03/28/2019 Orders [place] [address] Ijeoma Smith MD [facility] [place] [place] [address] 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 Social History Tobacco Use Types Packs/Day Years [...] 11/29/2024 1:30 PM EST Appointment XRay at [address] [place] [address] Laurent Cabrera MD [facility] [place] [address] 11/29/2024 2:20 PM EST Office [place] [address] Laurent Cabrera MD [facility] [place] [address] documented as of this encounter Results * (ABNORMAL) Prothrombin Time (04/18/2019 1:20 PM EDT) Prothrombin Time 16.8(H) 9.4 - 12.5 sec [facility] International Normalization Ratio 1.5 [facility] Comment: An INR <2.0 indicates adequate procoagulant activity for hemostasis in most patients without underlying bleeding disorders, though the INR may not adequately reflect hemostatic capacity in patients with liver disease and synthetic impairment. The recommended target INR range for therapeutic anticoagulation is 2.0 ? 3.0 for most applications, though lower and higher ranges may be appropriate depending on clinical circumstances. Blood specimen (specimen) 04/18/2019 1:20 PM EDT 04/18/2019 1:33 PM EDT Narrative Resulting Agency Comment Spec In Lab Ijeoma Smith MD HEMATOLOGY ORDERABLE S [facility] [place] [address] * Comprehensive metabolic panel (non-fasting) (04/18/2019 1:20 PM EDT) Glucose 90 65 - 199 mg/dL [facility] Comment:Diabetes: >=200 mg/d L plus symptoms Blood Urea Nitrogen 11 8 - 18 mg/dL [facility] Creatinine 0.85 0.70 - 1.20 mg/dL [facility] Sodium 142 135 - 145 mmol/L [facility] Potassium 4.3 3.5 - 5.0 mmol/L [facility] Comment: Please note: ??Patients with WBC >100,000 may have falsely elevated Potassium levels. ??For accurate Potassium quantification in these patients send serum separator tube (gold top) for subsequent determinations. ??Contact the Clinical Chemistry Laboratory if there are any questions. Chloride 106 98 - 107 mmol/L [facility] Carbon Dioxide 28 22 - 31 mmol/L [facility] Anion Gap 8 5 - 15 mmol/L [facility] Calcium 9.0 8.5 - 10.5 mg/dL [facility] Protein, Total 7.0 6.1 - 8.0 gm/dL [facility] Albumin 3.9 3.2 - 5.2 gm/dL [facility] Aspartate Aminotransferase 19 0 - 30 unit/L [facility] Alanine Aminotransferase 13 0 - 30 unit/L [facility] Alkaline Phosphatase 97 40 - 104 unit/L [facility] Bilirubin, Total 0.5 0.2 - 1.3 mg/dL [facility] Est Glomerular Filtration Rate 76 >=60 mL/min/1. 73 m?? [facility] Comment: The eGFR was calculated using the CKD-EPI equation. As with all creatinine based estimates of kidney function, eGFR values calculated with the CKD-EPI equation are not accurate in patients with acute kidney failure, extremes of body mass or the acutely ill. [email or web address] eGFR 88 >=60 mL/min/1. 73 m?? [facility] Comment: The eGFR was calculated using the CKD-EPI equation. As with all creatinine based estimates of kidney function, eGFR values calculated with the CKD-EPI equation are not accurate in patients with acute kidney failure, extremes of body mass or the acutely ill. [email or web address] Blood specimen (specimen) 04/18/2019 1:20 PM EDT 04/18/2019 1:33 PM EDT Narrative Resulting Agency Comment Spec In Lab Ijeoma Smith MD CHEMISTRY ORDERABLES [facility] [place] [address] documented in this encounter Visit Diagnoses Diagnosis 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 Other chronic nonalcoholic liver disease documented in this encounter Care Teams Process Architect Relationship Specialty Start Date End Date Jayden Tijerina Jr., MD [address] [place] [address] PCP - General Family Medicine 12/16/16 04/05/19 documented as of this encounter
--- OUTSIDE RECORDS SUMMARY | 2024-11-22 17:33 | XMS_ITS | Encounter Summary ---
Author Organization [facility] [address] [place] [address] Care Team Providers Care Certified Solid Waste Facility Operator Name Role Phone Alma Farfan MD Primary Care Provider [phone] Encounter Details Date Type Department Care Team (Late st Contact Info) Description 08/16/2019 1:15 PM EDT - 08/16/2019 2:15 PM EDT Surgery [place] [phone] Ijeoma Smith MD [facility] [place] [address] EGD, UPPER GI ENDOSCOPY (WRVU 2.09) Social History Tobacco Use Types Packs/Day Years [...] Sign Reading Time Taken Comments Blood Pressure 116/80 08/16/2019 2:15 PM EDT Pulse 73 08/16/2019 2:03 PM EDT Temperature 37 ??C (98.6 ??F) 08/16/2019 12:23 PM EDT Respiratory Rate 20 08/16/2019 2:03 PM EDT Oxygen Saturation 98% 08/16/2019 2:15 PM EDT Inhaled Oxygen Concentration - - Weight - - Height - - Body Mass Index - - documented in this encounter Discharge Instructions * Discharge Instructions* Karol Telles RN - 08/16/2019 2:08 PM EDT UPPER GI ENDOSCOPY WHAT TO EXPECT AFTER THE PROCEDURE Medications You may have a mild sore throat. Ice chips, popsicles, over the counter throat lozenges or spray may help numb your throat. This procedure should not cause a fever. Call your healthcare provider or seek immediate medical attention if: You have trouble swallowing. You have belly pain. Your stools are black or tarlike or have streaks of blood. You are sick to your stomach or cannot keep fluids down. Watch closely for changes in your health, and be sure to contact your doctor IF Your throat still hurts after a day or two You do not get better as expected. Colonoscopy What to expect after the procedure You may feel a little more gassy or bloated than usual. This is normal. You should expect the return of normal bowel function in the 2 to 3 days. Activity Because of the sedation that you received your judgement and reaction time are effected ?? Go home and rest quietly for the remainder of the day. You may resume your normal activities tomorrow. ?? Change from one position to the next slowly. You may lose your balance unexpectedly ?? Be careful on stairs, as you may be unsteady on your feet FOR THE NEXT 24 HRS ?? DO NOT DRIVE OR OPERATE ANY MACHINERY ?? DO NOT DRINK ALCOHOLIC BEVERAGES ?? DO NOT SIGN LEGAL DOCUMENTS ?? If you are a smoker: DO NOT SMOKE WHILE YOU ARE ALONE Diet ?? Start by eating small portions of foods that ordinarily will not upset your stomach . Avoid gas producing foods for the next few days ?? Be gentle with what you choose to start with ?? Drink plenty of fluids ( unless your doctor has told you not to). IV SITE-- slight redness, or tenderness is normal. You can use warm compresses if you become concerned. If the tenderness +/or redness increases or foul drainage and a red streak occurs, please contact your PCP immediately When shoud you call for help? Call 911 anytime you think you may need emergency care. For example If you pass out ( loss of consciousness) If you pass maroon or bloody stools If you have severe belly pain Call your doctor now or seek immediate medical care If your stools are black and tarlike If your stools have streaks of blood, but you did not have a biopsy or any polyps removed If you have belly pain, or your belly is swollen and firm If you vomit If you have a fever If you are very dizzy Watch closely for changes in your health, and be sure to contact your doctor if you have any problems Your doctor will let you know when you will need your next colonoscopy. The results of your test and your risk for colorectal cancer will help your doctor decide how often you need to be checked. Tuesday-Tuesday Same Day Endo [phone] 7a-8p Otherwise contact [phone] and ask to speak to the logistics planning manager control area operator Follow up care is a brown part of your treatment and safety. Be sure to make and go to all appointments, and call your doctor if you are having problems. Discharge instructions reviewed with patient who expresses understanding documented in this encounter Medications at Time of Discharge Medication Sig Dispensed Refills Start Date End Date ferrous sulfate 325 mg (65 mg iron) Tablet Take 325 mg by mouth daily. UNABLE TO FIND Iron infusion traZODone (DESYREL) 150 mg Tablet TAKE 1 [...] Inhaler 3 11/23/2016 levothyroxine (SYNTHROID) 25 mcg TabletIndications:Luz cytopenia Take 1 tablet by mouth daily. 30 tablet 11/23/2016 ondansetron (ZOFRAN, HYDROCHLORIDE,) 4 mg Tablet Take 1-2 tablets by mouth every 8 hours as needed for Nausea. 12 tablet 11/20/2016 albuterol (PROVENTIL) 2.5 mg /3 mL (0.083 %) Solution for Nebulization Take 2.5 mg by nebulization every 6 hours as needed. Reported on 11/08/2016 omeprazole (PRILOSEC) 40 mg Capsule, Delayed Release(E.C.)Indicati ons:Acute gastric ulcer without hemorrhage or perforation,Reflux esophagitis Take 1 capsule by mouth daily for 90 days. Take on an empty stomach, 30-60 minutes before first meal of the day. 90 capsule 1 06/20/2019 09/18/2019 sucralfate (CARAFATE) 1 gram TabletIndications:Acu te gastric ulcer without hemorrhage or perforation,Reflux esophagitis Take 1 tablet by mouth 4 times daily as needed (prn abdominal pain) for up to 360 days. 360 tablet 1 06/20/2019 06/14/2020 documented as of this encounter H&P Notes * Ijeoma Smith MD - 08/16/2019 1:09 PM EDT Gastroenterology and Hepatology Pre-Procedure History and Physical Exam Procedure: EGD: Colonoscopy Indication: follow up gastric ulcer, iron def anemia Patient Active Problem List Diagnosis Code ??? [...] Anemia D64.9 ??? Anemia, iron deficiency D50.9 EXAM: HEENT: Airway examined, oropharynx clear Mallampati Score: II (soft palate, uvula, fauces visible) LUNGS: Clear to auscultation HEART: Regular rate and rhythm, normal S1, S2 ABDOMEN: Normal bowel sounds, soft, non tender, non distended, A/P Proceed with the planned endoscopic procedure. ASA 2 - Patient with mild systemic disease with no functional limitations Sedation Plan: anesthesia Risks and benefits of the procedure explained to the patient. Consent signed. documented in this encounter Plan of Treatment Upcoming Encounters Date Type Department Care Team (Late st Contact Info) Description 11/29/2024 1:30 PM EST Appointment XRay at [address] [place] [address] Laurent Cabrrea MD [facility] [place] [address] 11/29/2024 2:20 PM EST Office Visit Orthopaedics at [facility] [place] [phone] Laurent Cabrera MD [facility] [place] [address] documented as of this encounter Procedures Procedure Name Priority Date/Time Associated Diagnosis Comments Colonoscopy, Diagnostic (18351) 08/16/2019 1:26 PM EDT She needs to be scheduled for??colonoscopy to exclude colonic cause??of iron deficiency, we can do a ??repeat EGD then to confirm gastric ulcer healing (in 8-10 weeks). Upper GI Endoscopy, Diagnostic ([id number]) 08/16/2019 1:26 PM EDT She needs to be scheduled for??colonoscopy to exclude colonic cause??of iron deficiency, we can do a ??repeat EGD then to confirm gastric ulcer healing (in 8-10 weeks). COLONOSCOPY Routine 08/16/2019 1:18 PM EDT UPPER GI ENDOSCOPY Routine 08/16/2019 1: 08 PM EDT documented in this encounter Results * COLONOSCOPY (08/16/2019 1:18 PM EDT) COLONOSCOPY [facility] Endoscopy Procedure Date: 08/16/2019 1:18 PM ? Patient Name: Phyliss Yun ? Date of : 1960 ? Age: 59 ? Order #: [id number] ? Instrument Name: [id number] ? Procedure: ? Colonoscopy Indications: ? Iron deficiency anemia Providers: ? Ijeoma Smith MD, Lazaro Monsivais ? Maicol Wood Senior Business Architect Referring : ?Alma Farfan MD Medicines: ? Monitored Anesthesia [...] MD GENERAL SURGICAL ORD ERABLES PROVATION * UPPER GI ENDOSCOPY (08/16/2019 1:08 PM EDT) Pathologist [facility] UPPER GI ENDOSCOPY [facility] Endoscopy Procedure Date: 08/16/2019 1:08 PM ? Patient Name: Tara Yun ? Date of : 1960 ? Age: 59 ? Order #: [id number] ? Instrument Name: [id number] ? Procedure: ? Upper GI endoscopy Indications: ? Follow-up of gastric ulcer Providers: ? Ijeoma Smith MD, Lazaro Monsivais ? Maicol Wood, Senior Business Architect Referring MD: ?Alma Farfan MD Medicines: ? [...] and ? adverse medication reactions. The ? Endoscope was introduced through the ? mouth, and advanced to the third part ? of duodenum. The patient tolerated ? the procedure well. The upper GI ? endoscopy was accomplished without ? difficulty. The patient tolerated the ? procedure well. ? Findings: ? Small (< 5 mm) varices were found in the lower third ? of the esophagus. ? Moderate portal hypertensive gastropathy was found in ? the entire examined stomach. ? Previously noted ulcer had healed. ? The examined duodenum was normal. ? Moderate Sedation: ? Not applicable - See Anesthesia documentation Impression: ?- Small (< 5 mm) esophageal varices. ? - Portal hypertensive gastropathy. ? - Normal examined duodenum. ? - No specimens collected. Recommendation: ?Iron deficiency is likely related to ? portal gastropathy. ? Continue iron. ? Continue omeprazole to prevent ? recurrence of ulcer. ? Will consider starting non selective ? beta warren to decrease bleeding ? from gastropathy. ? Attending Participation: ? I personally performed the entire procedure. ? I was present during the intraservice time as ? documented by the sedation RN. ? Ijeoma Smith MD 08/16/2019 1:43:15 PM This report has been signed electronically. Number of Addenda: 0 Note Initiated On: 08/16/2019 1:08 PM PROVATION 08/16/2019 1:08 PM EDT Alma Farfan MD GENERAL SURGICAL ORD ERABLES [employer]ATION documented in this encounter Visit Diagnoses Not on filedocumented in this encounter Administered Medications Inactive Administered Medications - up to 3 most recent administrations Medication Order MAR Action Action Date Dose Rate Site acetaminophen (TYLENOL) tablet 650 mg 650 mg, Oral, ONCE, 1 dose, On Kirsten 08/16/19 at 1445, Maximum dose of acetaminophen is 4000 mg from all sources in 24 hours., Endoscopy (Day of Procedure), Routine Given 08/16/2019 2:45 PM EDT 650 mg lactated ringers infusion 100 mL/hr, Intravenous, CONTINUOUS, Starting on Kirsten 08/16/19 at 1245, Until Kirsten 08/16/19 at 1442, Endoscopy (Day of Procedure) New Bag 08/16/2019 12:40 PM EDT 100 mL/hr 100 mL/hr documented in this encounter Active and Recently Administered Medications Times are shown in EDT. Scheduled Medication Order 08/14/2019 08/15/2019 08/16/2019 acetaminophen (TYLENOL) tablet 650 mg (COMPLETED) 650 mg, Oral, ONCE, 1 dose, On Kirsten 08/16/19 at 1445, Maximum dose of acetaminophen is 4000 mg from all sources in 24 hours., Endoscopy (Day of Procedure), Routine 1445 (Given - Provid er: Karol Telles RN - Comment: Headache) Continuous Medication Order 08/14/2019 08/15/2019 08/16/2019 lactated ringers infusion (CANCELED) 100 mL/hr, Intravenous, CONTINUOUS, Starting on Kirsten 08/16/19 at 1245, Until Kirsten 08/16/19 at 1442, Endoscopy (Day of Procedure) 1240 (New Bag - Prov ider: Dom Virk RN) documented in this encounter Care Teams Certified Solid Waste Facility Operator Relationship Specialty Start Date End Date Alma Farfan MD [address] [place] [address] PCP - General Family Medicine 04/06/19 11/04/24 documented as of this encounter
--- OUTSIDE RECORDS SUMMARY | 2024-11-22 17:33 | XMS_ITS | Encounter Summary ---
Author Organization [facility] [address] [place] [address] Care Team Providers Care Social Science Teacher Name Role Phone Alma Farfan MD Primary Care Provider [phone] Encounter Details Date Type Department Care Team (Late st Contact Info) Description 04/06/2019 Telephone Hematology and Oncology at [facility] [place] [phone] Sheyla Massey RN Social History Tobacco Use Types Packs/Day Years [...] encounter Miscellaneous Notes * Telephone Encounter - Sheyla Massey RN - 04/06/2019 3:59 PM EDT Reviewed pre op health assessment with patient while in clinic. Form given to clinical clerk secretary to be faxed to [facility] as required RN will continue to follow. documented in this encounter Plan of Treatment Upcoming Encounters Date Type Department Care Team (Late st Contact Info) Description 11/29/2024 1:30 PM EST Appointment XRay at [address] [place] [address] Laurent Cabrera MD [facility] [place] [address] 11/29/2024 2:20 PM EST Office [place] [address] Laurent Cabrera MD [facility] [place] [address] documented as of this encounter Visit Diagnoses Not on filedocumented in this encounter Care Teams Social Science Teacher Relationship Specialty Start Date End Date Alma Farfan MD [address] [place] [phone] PCP - General Family Medicine 04/06/19 11/04/24 documented as of this encounter
--- OUTSIDE RECORDS SUMMARY | 2024-11-22 17:33 | XMS_ITS | Encounter Summary ---
Author Organization [facility] [place] [address] [place] [address] Care Team Providers Care Flat Examiner Name Role Phone Alma Farfan MD Primary Care Provider [phone] Encounter Details Date Type Department Care Team (Latest Contact Info) Description 08/16/2019 11:47 AM EDT - 08/16/2019 3:00 PM EDT Hospital En[place] [phone] Ijeoma Smith MD [facility] [place] [address] Discharge Disposition: Home Social History Tobacco Use [...] to be checked. Tuesday-Tuesday Same Day Endo [phone] 7a-8p Otherwise contact [phone] and ask to speak to the foundry molder motion picture camera lens technician Follow up care is a brown part [...] 11/29/2024 1:30 PM EST Appointment XRay at [address] [place] [address] Laurent Cabrera MD [facility] [place] [address] 11/29/2024 2:20 PM EST Office Visit Orthopaedics at [facility] [place] [phone] Laurent Cabrera MD [facility] [place] [address] documented as of this encounter Procedures Procedure Name Priority Date/Time Associated Diagnosis Comments Colonoscopy, Diagnostic ([id number]) 08/16/2019 1:26 PM EDT She needs to be scheduled for??colonoscopy to exclude colonic cause??of iron deficiency, we can do a ??repeat EGD then to confirm gastric ulcer healing (in 8-10 weeks). Upper GI Endoscopy, Diagnostic ([id number]) 08/16/2019 1:26 PM EDT She needs to be scheduled for??colonoscopy to exclude colonic cause??of iron deficiency, we can do a ??repeat EGD then to confirm gastric ulcer healing (in 8-10 weeks). COLONOSCOPY Routine 08/16/2019 1:18 PM EDT UPPER GI ENDOSCOPY Routine 08/16/2019 1: 08 PM EDT documented in this encounter Results * COLONOSCOPY (08/16/2019 1:18 PM EDT) COLONOSCOPY [facility] Endoscopy Procedure Date: 08/16/2019 1:18 PM ? Patient Name: Tara Yun ? Date of : 1960 ? Age: 59 ? Order #: [id number] ? Instrument Name: [id number] ? Procedure: ? Colonoscopy Indications: ? Iron deficiency anemia Providers: ? Ijeoma Smith MD, Lazaro Monsivais ? Maicol Wood Bag Turner Referring : ?Alma Farfan MD Medicines: ? [...] GI ENDOSCOPY (08/16/2019 1:08 PM EDT) Pathologist [facility] UPPER GI ENDOSCOPY [facility] Endoscopy Procedure Date: 08/16/2019 1:08 PM ? Patient Name: Phyliss Yun ? Date of : 1960 ? Age: 59 ? Order #: [id number] ? Instrument Name: [id number] ? Procedure: ? Upper GI endoscopy Indications: ? Follow-up of gastric ulcer Providers: ? Ijeoma Smith MD, Lazaro Monsivais ? Maicol Wood, Bag Turner Referring MD: ?Alma Farfan MD Medicines: ? [...] RN) documented in this encounter Care Teams Flat Examiner Relationship Specialty Start Date End Date Alma Farfan MD [address] [place] [address] PCP - General Family Medicine 04/06/19 11/04/24 documented as of this encounter
--- OUTSIDE RECORDS SUMMARY | 2024-11-22 17:33 | XMS_ITS | Encounter Summary ---
Author Organization [facility] [address] [place] [address] Care Team Providers Care Counselor Nurses' Association Name Role Phone Alma Farfan MD Primary Care Provider [phone] Reason for Visit * Reason Comments Medication Refill Encounter Details Date Type Department Care Team (Late st Contact Info) Description 10/01/2018 Refill [place] [address] Ijeoma Smith MD [facility] [place] [address] Chronic abdominal pain Social History Tobacco Use Types [...] 1:30 PM EST Appointment XRay at [address] [place] [phone] Laurent Cabrera MD [facility] ORTHOPAEDIC SURGERY [place], [place] [phone] 11/29/2024 2:20 PM EST Office [place] [address] Laurent Cabrera MD [facility] [place] [address] documented as of this encounter Visit Diagnoses Diagnosis Chronic abdominal pain Abdominal pain, unspecified site documented in this encounter Care Teams Counselor Nurses' Association Relationship Specialty Start Date End Date Alma Farfan MD [address] [place] [phone] PCP - General Family Medicine 04/06/19 11/04/24 documented as of this encounter
--- OUTSIDE RECORDS SUMMARY | 2024-11-22 17:33 | XMS_ITS | Encounter Summary ---
Author Organization [facility] Address [facility] [address] [place] [address] Care Team Providers Care Screening Tech Name Role Phone Alma Farfan MD Primary Care Provider [phone] Encounter Details Date Type Department Care Team (Latest Contact Info) Description 06/19/2019 11:34 AM EDT - 06/19/2019 3:12 PM EDT Hospital Encounter [place] [phone] Ijeoma Smith MD [facility] [place] [address] Discharge Disposition: Home Social History Tobacco Use [...] Sign Reading Time Taken Comments Blood Pressure 107/66 06/19/2019 2:30 PM EDT Pulse 77 06/19/2019 11:51 AM EDT Temperature 37 ??C (98.6 ??F) 06/19/2019 11:51 AM EDT Respiratory Rate 16 06/19/2019 2:30 PM EDT Oxygen Saturation 98% 06/19/2019 2:30 PM EDT Inhaled Oxygen Concentration - - Weight - - Height - - Body Mass Index - - documented in this encounter Discharge Instructions * Discharge Instructions* Julia Ta RN - 06/19/2019 1:38 PM EDT UPPER GI ENDOSCOPY WHAT TO EXPECT AFTER THE PROCEDURE After the test you may feel a little more gassy or bloated than usual, this is normal. ACTIVITY Because of the sedation that you received Your judgement and reaction time are affected ?? Go home and rest quietly for the remainder of the day. You may resume your normal activities tomorrow. ?? Change from one position to the next slowly. You may lose your balance unexpectedly Be careful on stairs, as you may be unsteady on your feet. FOR THE NEXT 24 HRS ?? DO NOT DRIVE OR OPERATE ANY MACHINERY ?? DO NOT DRINK ALCOHOLIC BEVERAGES ?? DO NOT SIGN LEGAL DOCUMENTS ?? If you are a smoker: DO NOT SMOKE WHILE YOU ARE ALONE Diet ?? Start by eating small portions of foods that ordinarily will not upset your stomach. Be gentle with what you choose to start with. ?? Drink plenty of fluids ( unless otherwise told not to) Medications You may have a mild sore throat. Ice chips, popsicles, over the counter throat lozenges or spray may help numb your throat. This procedure should not cause a fever. IV SITE-- slight redness or tenderness is normal, you can use warm compresses if you get concerned.If the tenderness +/or redness increases or foul drainage and a red streak occurs, please contact your PCP immediately. WHEN SHOULD YOU CALL FOR HELP? Call 911 anytime you think that you need emergency care. For example, call if: You passed out (lost consciousness). You cough up blood. You vomit blood or what looks like coffee grounds. You pass maroon or very bloody stools. Call your healthcare provider or seek immediate [...] You do not get better as expected. Tuesday-Tuesday Same Day Endo [phone]-8p Otherwise contact [phone] and ask to speak to the dietitian consultant design studio consultant Follow-up care is a brown part of your treatment and safety. Be sure to make and go to all appointments, and call your doctor if you are having problems. Instructions have been reviewed and patient expresses understanding documented in this encounter Medications at Time of Discharge Medication Sig Dispensed Refills Start Date End Date UNABLE TO FIND Iron infusion traZODone (DESYREL) [...] Inhaler 3 11/23/2016 levothyroxine (SYNTHROID) 25 mcg TabletIndications:Pancy topenia Take 1 tablet by mouth daily. 30 tablet 11/23/2016 ondansetron (ZOFRAN, HYDROCHLORIDE,) 4 mg Tablet Take 1-2 tablets by mouth every 8 hours as needed for Nausea. 12 tablet 11/20/2016 albuterol (PROVENTIL) 2.5 mg /3 mL (0.083 %) Solution for Nebulization Take 2.5 mg by nebulization every 6 hours as needed. Reported on 11/08/2016 documented as of this encounter H&P Notes * Ijeoma Smith MD - 06/19/2019 12:44 PM EDT Gastroenterology and Hepatology Pre-Procedure History and Physical Exam Procedure: EGD: Indication: cirrhosis, screen for varices Patient Active Problem List Diagnosis Code ??? [...] Proceed with the planned endoscopic procedure. ASA 3 - Patient with moderate systemic disease with functional limitations Sedation Plan: anesthesia Risks and benefits of the procedure explained to the patient. Consent signed. * Dom Ramirez - 06/19/2019 12:43 PM EDT Gastroenterology and Hepatology Pre-Procedure History and Physical Exam Procedure: EGD: Indication: Cirrhosis screen for varices Patient Active Problem List Diagnosis Code ??? [...] Normal bowel sounds, soft, non tender, non distended A/P Proceed with the planned endoscopic procedure. ASA 3 - Patient with moderate systemic disease with functional limitations Sedation Plan: anesthesia Risks and benefits of the procedure explained to the patient. Consent signed. Please see separate consult note for further details. documented in this encounter Plan of Treatment Upcoming Encounters Date Type Department Care Team (Late st Contact Info) Description 11/29/2024 1:30 PM EST Appointment XRay at [address] [place] [address] Laurent Cabrera MD [facility] [place] [address] 11/29/2024 2:20 PM EST Office Visit Orthopaedics at [facility] [place] [address] Laurent Cabrera MD [facility] [place] [address] documented as of this encounter Procedures Procedure Name Priority Date/Time Associated Diagnosis Comments SPECIMEN TO PATHOLOGY Routine 06/19/2019 1:22 PM EDT SURGICAL PATHOLOGY REPORT Routine 06/19/2019 1:20 PM EDT EGD WITH BIOPSY (WRVU 2.39) 06/19/2019 1:06 PM EDT BECKI (pt has to do mirlax 2x daily for days prior) (consult) UPPER GI ENDOSCOPY Routine 06/19/2019 12 :25 PM EDT documented in this encounter Results * Specimen to Pathology (06/19/2019 1:22 PM EDT) AP Specimen 06/19/2019 1:22 PM EDT 06/19/2019 1:22 PM EDT Narrative [facility] - 06/19/2019 1:22 PM EDT Specimen requisition ordered. ??Separate Pathology report to follow Ijeoma Smith MD PATHOLOGY/CYTOLOGY O RDERABLES [facility] [place] [address] * Surgical Pathology Report (06/19/2019 1:20 PM EDT) Final Diagnosis [id number] ? Location: 4T; EA11; A The signing pathologist has (i) examined the relevant preparation(s) for the specimen(s) and (ii) rendered or confirmed the diagnosis(es). . ?Surgical Pathology DIAGNOSIS Antrum body, ??biopsy: - ??Antrum-type mucosa with reactive gastropathy and increased number of dilated capillary profile, consistent with portal gastropathy. - ??Body/fundic-t ype mucosa with reactive gastropathy. Electronically signed by: ??Aubrey Baker MD Verified: ??06/21/2019 ?Pathologist Performed at: ??-[facility] [place], [place], [place] CLINICAL INFORMATION Specimen Submitted: A - Gastric antrum and body Clinical History and Diagnosis: 58-year-old female with cirrhosis, portal hypertension, gastric ulcers SPECIMEN PROCESSING A - Labeled/Fixativ e: Gastric antrum body, formalin. Quantity/Size: Four, 0.2-0.5 cm. Tissue Description: Soft, strips of pascual-pink mucosal tissues. Sections/Proces sing: Submitted en toto ??in 1 cassette labeled A1. ??pps 06/21/2019 4:46 PM EDT [facility] GI Biopsy 06/19/2019 1:20 PM EDT 06/19/2019 1:20 PM EDT Ijeoma Smith MD PATHOLOGY/CYTOLOGY Rafael [facility] [place] [address] * UPPER GI ENDOSCOPY (06/19/2019 12:25 PM EDT) UPPER GI ENDOSCOPY [facility] Endoscopy Procedure Date: 06/19/2019 12:25 PM ? Patient Name: Tara Yun ? N: [id number] ? Date of : 1960 ? Age: 58 ? Order #: [id number] ? Instrument Name: [id number] ? Procedure: ? Upper GI endoscopy Indications: ? Iron deficiency anemia, Cirrhosis ? with suspected esophageal varices Providers: ? Ijeoma Smith MD, Christiano Ortez, KENN, ? Karen Holliday, Clinical Unit Educator, ? Dom Sterling MD: ?Alma Farfan MD Medicines: ? Monitored [...] the ? procedure well. ? Findings: ? Mildly severe esophagitis was found. ? Small esophageal varices noted. ? Moderate portal hypertensive gastropathy was found in ? the entire examined stomach. ? One cratered gastric ulcer with no stigmata of ? bleeding was found in the gastric antrum. The lesion ? was 5 mm in largest dimension. Biopsies were taken ? with a cold forceps for histology from the antrum and ? body. ? The examined duodenum was normal. ? Moderate Sedation: ? Not applicable - See Anesthesia documentation Impression: ?- Mildly severe esophagitis. ? Small esophageal varices. ? - Portal hypertensive gastropathy. ? - Gastric ulcer with no stigmata of ? bleeding. Biopsied. ? - Normal examined duodenum. Recommendation: ?Iron deficiency anemia is likely ? related to portal gastropathy. ? Gastric ulcer has the appearance of ? NSAID related ulcer, biopsies done ? for H. Pylori. ? She should start a PPI, will send ? prescription for omeprazole 40mg once ? daily. ? She needs to be scheduled for ? colonoscopy to exclude colonic cause ? of iron deficiency, we can do a ? repeat EGD then to confirm gastric ? ulcer healing (in 8-10 weeks). ? Attending Participation: ? I personally performed the entire procedure. ? I was present during the intraservice time as ? documented by the sedation RN. ? Ijeoma Smith MD 06/19/2019 1:34:51 PM This report has been signed electronically. Number of Addenda: 0 Note Initiated On: 06/19/2019 12:25 PM PROVATION 06/19/2019 12:2 5 PM EDT Alma Farfan MD GENERAL SURGICAL ORD ERABLES PROVATION documented in this encounter Visit Diagnoses Not on filedocumented in this encounter Administered Medications Inactive Administered Medications - up to 3 most recent administrations Medication Order MAR Action Action Date Dose Rate Site lactated ringers infusion 100 mL/hr, Intravenous, CONTINUOUS, Starting on Tue06/19/19 at 1215, Until Tue06/19/19 at 1432, Endoscopy (Day of Procedure) New Bag 06/19/2019 12:05 PM EDT 100 mL/hr 100 mL/hr documented in this encounter Active and Recently Administered Medications Times are shown in EDT. Continuous Medication Order 06/17/2019 06/18/2019 06/19/2019 lactated ringers infusion (CANCELED) 100 mL/hr, Intravenous, CONTINUOUS, Starting on Tue06/19/19 at 1215, Until Tue06/19/19 at 1432, Endoscopy (Day of Procedure) 1205 (New Bag - Prov ider: Terra Goldman RN)1318 (Anesthesia Volume Adjustment - Provider: Katherin Owusu CRNA) documented in this encounter Care Teams Screening Tech Relationship Specialty Start Date End Date Alma Farfan MD [address] [place] [address] PCP - General Family Medicine 04/06/19 11/04/24 documented as of this encounter
--- OUTSIDE RECORDS SUMMARY | 2024-11-22 17:33 | XMS_ITS | Encounter Summary ---
Author Organization [facility] [address] [place] [address] Care Team Providers Care Resident Physician Name Role Phone Lilliana Goyal MD, Jayden Leonardo Primary Care Provider + Encounter Details Date Type Department Care Team (Late st Contact Info) Description 05/10/2018 Notes Only Gastroenterology at [facility] [place] [address] Sowmya Willis RN Social History Tobacco Use Types Packs/Day [...] as of this encounter Progress Notes * Sowmya Willis RN - 05/10/2018 2:40 PM EDT Patient no-showed for her abd US, labs, and follow up visit with Dr. Smith yesterday. Per discussion with provider, patient will not received further amitriptyline fills until she is seen. Communication sent to pharmacy with this information. Alternatively, she can discuss additional fills with her primary care. documented in this encounter Plan of Treatment Upcoming Encounters Date Type Department Care Team (Late st Contact Info) Description 11/29/2024 1:30 PM EST Appointment XRay at [address] [place] [address] Laurent Cabrera MD [facility] [place] [address] 11/29/2024 2:20 PM EST Office [place] [address] Laurent Cabrera MD [facility] [place] [address] documented as of this encounter Visit Diagnoses Not on filedocumented in this encounter Care Teams Resident Physician Relationship Specialty Start Date End Date Jayden Tijerina Jr., MD [address] [place] [phone] PCP - General Family Medicine 12/16/16 04/05/19 documented as of this encounter
--- OUTSIDE RECORDS SUMMARY | 2024-11-22 17:33 | XMS_ITS | Encounter Summary ---
Author Organization [facility] [address] [place] [address] Care Team Providers Care Helicopter Repairer Name Role Phone Lilliana Goyal MD, Jayden Leonardo Primary Care Provider + Encounter Details Date Type Department Care Team (Late st Contact Info) Description 03/16/2019 Telephone Gastroenterology at [facility] [place] [address] Alethea Escalona Social History Tobacco Use Types Packs/Day Years [...] encounter Miscellaneous Notes * Telephone Encounter - Alethea Escalona - 03/16/2019 4:47 PM EDT D office called to check on status of referral- recent doc's rcvd were actually a referral, but- active Dr. Smith pt, so- called x 3, would ring then right to disconnected. So sent reminder letter. documented in this encounter Plan of Treatment Upcoming Encounters Date Type Department Care Team (Late st Contact Info) Description 11/29/2024 1:30 PM EST Appointment XRay at [address] [place] [address] Laurent Cabrera MD [facility] ORTHOPAED[place] [address] 11/29/2024 2:20 PM EST [place] [address] Laurent Cabrera MD [facility] ORTHOPAED[place] [address] documented as of this encounter Visit Diagnoses Not on filedocumented in this encounter Care Teams Helicopter Repairer Relationship Specialty Start Date End Date Jayden Tijerina Jr., MD [address] [place] [address] PCP - General Family Medicine 12/16/16 04/05/19 documented as of this encounter
--- OUTSIDE RECORDS SUMMARY | 2024-11-22 17:33 | XMS_ITS | Encounter Summary ---
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 Social History [...] Sign Reading Time Taken Comments Blood Pressure 118/60 04/18/2019 2:22 PM EDT Pulse 59 04/18/2019 2:22 PM EDT Temperature 36.8 ??C (98.3 ??F) 04/18/2019 2:22 PM ED T Respiratory Rate - - Oxygen Saturation 96% 04/18/2019 2:22 PM EDT Inhaled Oxygen Concentration - - Weight 97.9 kg (215 lb 14.4 oz) 04/18/2019 2:22 PM EDT Height 164.4 cm (5' 4.72) 04/18/2019 2:22 PM ED T Body Mass Index 36.23 04/18/2019 2:22 PM EDT documented in this encounter Progress Notes * Ijeoma Smith MD - 04/18/2019 2:00 PM EDT Gastroenterology and Hepatology Follow Up Note Patient: Tara Yun : 1960 Provider: Ijeoma Smith MD Problem List: Cirrhosis Likely due to QUIROZ Diagnosed 2012 during ventral hernia repair when she also had low platelets No hx of liver biopsy Metabolic risk factors: obesity, hyperlipidemia Work up for causes of liver disease negative 2012 Complications of cirrhosis: Ascites- none Hepatic Encephalopathy -05/01/13 Treatment - initially lactulose 30 cc BID -06/26/13 Increase Lactulose 30 cc TID and addition of Rifaximin -she was on psychotropic meds at time of encephalopathy diagnosis and it may not have been HE Portal Hypertension -EGD 06/06/13 mild portal hypertensive gastropathy. No varices. - EGD 12/08/16 portal hypertensive gastropathy, no varices -Thrombocytopenia with progression to pancytopenia -Marked splenomegaly Last imaging: US 02/2019 - no liver lesions, splenomegaly, patent portal vein 2. HCV Ab positive, RNA negative 2012 (risk factor EMT) 3. Class II obesity 4. Hyperlipidemia 5. Hypothyroid 6. GERD 7. Depression 8. Asthma 9. S/P tonsillectomy 1960 10. S/P hysterectomy 1986 11. S/P ovary removal 1987 12. S/P Dental extraction 03/25/1989 13. S/P Cholecystectomy 1992 14. S/P Hiatal Hernia Repair with Hilary Fundoplication 1992 15. S/P Appendectomy 11/16/1996 16. S/P Right total knee replacement 2004 17. S/P Left total knee replacement 2005 18. S/P right toe surgery 2005 19. S/P Ventral Hernia repair 01/11/13 19. S/P Bone Marrow Biopsy 04/09/13 20. Recurrent kidney stones 2014, stents 21. Hx of C. Diff 2014 Social History: X 20 years, . Then lived with a male partner for 18 years. Now single. 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 I have not seen her since 2017. Since I last saw her she has stopped benzodiazepines and narcotics. She feels tired a lot, continues to work. She recently received IV iron. Pancytopenia is worsening and she is undergoing bone marrow biopsy next week with Dr. Franco. She is seeing a surgeon to follow up on a possible MESH complication seen on imaging. US in 02/2019 RAD US ABDOMEN ONE ORGAN/QUADRANT 03/14/2019 2:36 PM Signs and Symptoms:?Liver Cirrhosis, 6 month follow up?RUQ Tenderness question of mass in adipose tissue Comparison: CT renal colic October 2018 Technique: Still and cine ultrasound images of the right upper quadrant were obtained with Doppler augmentation where necessary. Findings: The imaged portion of the pancreas is normal in appearance. The liver measures 14.0 cm.?The liver parenchyma demonstrates coarsened heterogenous echotexture with [...] surgically absent. The common duct measures 3 mm.? The proximal aorta and IVC are normal in caliber. In the right upper quadrant, corresponding to region of palpable concern, there is an irregular hypoechoic shadowing area with punctate a focus of hyperechoic shadowing material. Based on recent CT examination, this represents the superior aspect of the patient's hernia repair mesh with a surgical staple. Impression: 1.?Region of palpable concern corresponds with the most superior aspect of the abdominal wall hernia repair mesh. 2.?Cirrhotic liver 3.?Distended portal vein, without evidence of thrombosis. 4.?Post cholecystectomy. I have personally reviewed the images and the above interpretation and agree with the findings. Current Outpatient Medications Medication Sig Dispense Refill ??? traZODone (DESYREL) 150 mg Tablet TAKE 1 TABLET BY MOUTH EVERYDAY AT BEDTIME 5 ??? fluticasone (FLOVENT) 110 mcg/actuation HFA Aerosol Inhaler Inhale 1 puff into the lungs 2 times daily. 1 Inhaler 3 ??? albuterol (PROAIR HFA) 90 mcg/actuation HFA Aerosol Inhaler Inhale 2 puffs into the lungs every6 hours as needed. Reported on 11/08/2016 (Patient not taking: Reported on 04/06/2019) 1 Inhaler 3 ??? levothyroxine (SYNTHROID) 25 [...] 6 hours as needed. Reported on 11/08/2016 ??? ERGOCALCIFEROL, VITAMIN D2, (VITAMIN D ORAL) Take 1,000 Units by mouth daily. ??? FERROUS SULFATE, DRIED (IRON, DRIED, ORAL) Take 65 mg by mouth 3 times daily. No current facility-administered medications for this visit. Vitals: 04/18/19 1422 BP: 118/60 Pulse: 59 Temp: 36.8 ??C (98.3 ??F) TempSrc: Oral SpO2: 96% Weight: 97.9 kg (215 lb 14.4 oz) Height: 164.4 cm (5' 4.72) Body mass index is 36.23 kg/m??. Exam: Looks well Chest- clear Heart- RRR, nl s1, s2 Abd- normal bs's, soft, non tender, +splenomegaly Lab Results Component Value Date NA 143 04/06/2019 K 4.0 04/06/2019 CL 104 04/06/2019 CO2 26 04/06/2019 BUN 11 04/06/2019 CREATININE 0.90 04/06/2019 GLUCOSE 130 04/06/2019 CALCIUM 8.5 04/06/2019 Lab Results Component Value Date ALT 13 04/06/2019 AST 16 04/06/2019 ALKPHOS 79 04/06/2019 BILITOT 0.5 04/06/2019 BILIDIR 0.1 12/16/2016 ALBUMIN 3.6 04/06/2019 PROT 6.6 04/06/2019 Lab Results Component Value Date WBC 0.8 (CRIT) 04/06/2019 HGB 10.5 (L) 04/06/2019 HCT 33.7 (L) 04/06/2019 MCV 88.9 04/06/2019 PLATELET 40 (L) 04/06/2019 Lab Results Component Value Date INR 1.5 04/18/2019 MELD-Na score: 11 at 04/18/2019 1:20 PM MELD score: 11 at 04/18/2019 1:20 PM Calculated from: Serum Creatinine: 0.85 mg/dL (Rounded to 1 mg/dL) at 04/18/2019 1:20 PM Serum Sodium: 142 mmol/L (Rounded to 137 mmol/L) at 04/18/2019 1:20 PM Total Bilirubin: 0.5 mg/dL (Rounded to 1 mg/dL) at 04/18/2019 1:20 PM INR(ratio): 1.5 at 04/18/2019 1:20 PM Age: 58 years Assessment and Plan: 58 y.o. female with cirrhosis likely due to QUIROZ with marked hypersplenism causing pancytopenia. She has not had other complications of cirrhosis. Currently she is Amairani A, MELD 11. I think past report of HE was not in fact hepatic encephalopathy, but rather medication effects. She is stable today from a liver perspective. I suspect pancytopenia is from hypersplenism from liver disease, but it is clearly getting worse. Tye with further work up as Dr. Franco is doing. Iron deficiency should be further worked up with endoscopy especially since last colonoscopy in 2012 was a poor prep. She is due for EGD to follow up for screening for varices. Recommendations: -Arrange EGD/[place] for work up of iron deficiency and to screen for varices -She should have RUQ US q 6 months for HCC screening -She is very high risk for any abdominal surgery due to portal hypertension and this should be avoided. If surgery were absolutely necessary we would need to consider TIPS and/or liver transplant listing prior to surgery. Ijeoma Smith MD Section of Gastroenterology & Hepatology [address] [place] [phone] Greater than 50% of this 30 minute visit was spent in discussion. Cc: Alma Farfan MD documented in this encounter Plan of Treatment Upcoming Encounters Date Type Department Care Team (Late st Contact Info) Description 11/29/2024 1:30 PM EST Appointment XRay at [address] [place] [address] Laurent Cabrera MD [facility] [place] [address] 11/29/2024 2:20 PM EST Office Visit Orthopaedics at [facility] [place] [address] Laurent Cabrera MD [facility] [place] [address] documented as of this encounter Visit Diagnoses Diagnosis 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 Other chronic nonalcoholic liver disease documented in this encounter Care Teams Head Rigger Relationship Specialty Start Date End Date Alma Farfan MD [address] [place] [phone] PCP - General Family Medicine 04/06/19 11/04/24 documented as of this encounter
--- OUTSIDE RECORDS SUMMARY | 2024-11-22 17:33 | XMS_ITS | Encounter Summary ---
Author Organization [facility] [place] [address] [place] [address] Care Team Providers Care Aoc Plans Intelligence Officer Chief Name Role Phone Alma Farfan MD Primary Care Provider [phone] Encounter Details Date Type Department Care Team (Latest Contact Info) Description 08/16/2019 3:10 PM EDT Laboratory Appointment Lab [address] [place] [address] Pancytopenia; Anemia, unspecified type; Thrombocytopenia Social History Tobacco Use Types Packs/Day [...] 11/29/2024 1:30 PM EST Appointment XRay at [address] [place] [phone] Laurent Cabrera MD [facility] [place] [address] 11/29/2024 2:20 PM EST Office [place] [phone] Laurent Cabrera MD [facility] ORTHOPAEDIC SURGERY [place], [place] [phone] documented as of this encounter Procedures Procedure Name Priority Date/Time Associated Diagnosis Comments HC C-REACTIVE PROTEIN Routine 08/16/2019 3:26 PM EDT Pancytopenia Anemia, unspecified type Thrombocytopenia SCAN, PERIPHERAL BLOOD STAT 9 3:26 PM EDT HEMOGRAM STAT 08/16/2019 3:26 PM EDT Pancytopenia Anemia, unspecified type Thrombocytopenia DIFFERENTIAL, AUTOMATED STAT 08/16/2019 3:26 PM EDT Pancytopenia Anemia, unspecified type Thrombocytopenia HC IRON BINDING CAPACITY Routine 08/16/2019 3:26 PM EDT Pancytopenia Anemia, unspecified type Thrombocytopenia HC ESR-SEDIMENTATION RATE, BLOOD STAT 08/16/2019 3:26 PM EDT Pancytopenia Anemia, unspecified type Thrombocytopenia HC RETIC,AUTO INCLUDES RETHE & IRF STAT 08/16/2019 3:26 PM EDT Pancytopenia Anemia, unspecified type Thrombocytopenia HC CBC,PLT & AUTO DIFF STAT 9 3:26 PM EDT Pancytopenia Anemia, unspecified type Thrombocytopenia HC FERRITIN, SERUM Routine 08/16/2019 3: 26 PM EDT Pancytopenia Anemia, unspecified type Thrombocytopenia COMPREHENSIVE METABOLIC PANEL Routine 08/16/2019 3:26 PM EDT Pancytopenia Anemia, unspecified type Thrombocytopenia documented in this encounter Results * Scan, Peripheral Blood (08/16/2019 3:26 PM EDT) Plat estimate Decreased [facility] RBC Morphology Normal [facility] Blood specimen (specimen) 08/16/2019 3:26 PM EDT 08/16/2019 3:40 PM EDT Narrative Resulting Agency Comment Spec In Lab Dom Zeng MD HEMATOLOGY ORDER YANN Performing Organization Address City/[facility]/ZIP Co de Phone Number [facility] [place] [address] * (ABNORMAL) Differential, Automated (08/16/2019 3:26 PM EDT) Neutrophil % 73.6 % [facility] Neutrophil Absolute 0.81(L) 1.70 - 6.10 x10(3)/ L [facility] Lymph % 16.4 % [facility] Lymphocytes Abs 0.2(L) 0.9 - 3.2 x10(3)/ L [facility] Monocyte % 9.1 % [facility] Monocyte Abs 0.1(L) 0.3 - 0.9 x10(3)/ L [facility] Eos % 0.0 % [facility] Eosinophils Abs 0.0 0.0 - 0.4 x10(3)/ L [facility] Basophil % 0.9 % [facility] Baso Absolute 0.0 0.0 - 0.1 x10(3)/ L [facility] Immature Gran % 0.00 % [facility] Comment: Immature granulocytes(IG's)percentage and absolute count will include metamyelocytes, myelocytes, and promyelocytes. Blood smears from CBCs yielding IG's will be scanned manually for concordance. If this scan disagrees with the automated IG or if promyelocytes are noted, a manual differential will be performed. Immature Gran Absolute 0.00 0.00 - 0.04 x10(3)/mc L [facility] Blood specimen (specimen) 08/16/2019 3:26 PM EDT 08/16/2019 3:37 PM EDT Narrative Resulting Agency Comment Spec In Lab Dom Zeng MD HEMATOLOGY ORDER YANN Performing Organization Address City/[facility]/ZIP Co de Phone Number [facility] [place] [address] * (ABNORMAL) Hemogram (08/16/2019 3:26 PM EDT) White Blood Cell 1.1(Criti gee) 4.0 - 9.5 x10(3)/mc L [facility] Comment: This result has been called to ML CALLED CRITICAL TO JOLIE KOSHANA 1627 by Karol Sosa on 08 16 2019 at 1635, and has been read back. Red Blood Cell 4.00 4.00 - 5.21 x10(6)/mc L [facility] Hemoglobin 12.5 11.7 - 15.5 gm/dL [facility] Hematocrit 38.0 35.7 - 45.8 % [facility] Mean Cell Volume 95.0(H) 82.6 - 94.[address] [facility] Mean Cell Hemoglobin 31.3 27.1 - 32.[address] [facility] Mean Cell Hemoglobin Concentration 32.9 31.7 - 35.0 gm/dL [facility] Platelet 32(L) 145 - 357 x10(3)/mc L [facility] RDW Standard Deviation 47.7(H) 37.0 - 46.[address] [facility] RDW coefficient of variation 13.7 11.5 - 14.1 % [facility] Mean Platelet Volume 11.2 7.6 - 12.[address] [facility] NRBC% auto 0.0 % [facility] NRBC Absolute 0.000 0.000 - 0.000 x10(3)/mc L [facility] Blood specimen (specimen) 08/16/2019 3:26 PM EDT 08/16/2019 3:37 PM EDT Narrative Resulting Agency Comment Spec In Lab Dom Zeng MD HEMATOLOGY ORDER YANN [facility] [place] [address] * Comprehensive metabolic panel (non-fasting) (08/16/2019 3:26 PM EDT) Glucose 87 65 - 199 mg/dL [facility] Comment:Diabetes: >=200 mg/d L plus symptoms Blood Urea Nitrogen 15 8 - 18 mg/dL [facility] Creatinine 0.74 0.70 - 1.20 mg/dL [facility] Sodium 140 135 - 145 mmol/L [facility] Potassium 4.0 3.5 - 5.0 mmol/L [facility] Comment: Please note: ??Patients with WBC >100,000 may have falsely elevated Potassium levels. ??For accurate Potassium quantification in these patients send serum separator tube (gold top) for subsequent determinations. ??Contact the Clinical Chemistry Laboratory if there are any questions. Chloride 105 98 - 107 mmol/L [facility] Carbon Dioxide 26 22 - 31 mmol/L [facility] Anion Gap 9 5 - 15 mmol/L [facility] Calcium 8.6 8.5 - 10.5 mg/dL [facility] Protein, Total 7.0 6.1 - 8.0 gm/dL [facility] Albumin 4.1 3.2 - 5.2 gm/dL [facility] Aspartate Aminotransferase 18 0 - 30 unit/L [facility] Alanine Aminotransferase 12 0 - 30 unit/L [facility] Alkaline Phosphatase 86 35 - 105 unit/L [facility] Bilirubin, Total 1.0 0.2 - 1.3 mg/dL [facility] Est Glomerular Filtration Rate 89 >=60 mL/min/1. 73 m?? [facility] Comment: The eGFR was calculated using the CKD-EPI equation. As with all creatinine based estimates of kidney function, eGFR values calculated with the CKD-EPI equation are not accurate in patients with acute kidney failure, extremes of body mass or the acutely ill. http://[employer]/DHMCnkf eGFR 103 >=60 mL/min/1. 73 m?? [facility] Comment: The eGFR was calculated using the CKD-EPI equation. As with all creatinine based estimates of kidney function, eGFR values calculated with the CKD-EPI equation are not accurate in patients with acute kidney failure, extremes of body mass or the acutely ill. http://[employer]/[facility] Blood specimen (specimen) 08/16/2019 3:26 PM EDT 08/16/2019 3:37 PM EDT Narrative Resulting Agency Comment Spec In Lab Dom Zeng MD CHEMISTRY ORDERA BLES Performing Organization Address [facility] de Phone Number [facility] [place] [address] * Reticulocyte Count (08/16/2019 3:26 PM EDT) Reticulocyte % 1.5 0.7 - 2.5 % [facility] Retic Abs # 0.060 0.020 - 0.110 x10(6)/mcL [facility] Immature Retic% 5.6 0.5 - 13.8 % [facility] Reticulated Hgb 36.7 29.8 - 39.[address] [facility] Blood specimen (specimen) 08/16/2019 3:26 PM EDT 08/16/2019 3:37 PM EDT Narrative Resulting Agency Comment Spec In Lab Dom Zeng MD HEMATOLOGY ORDER YANN Performing Organization Address [facility] Co de Phone Number [facility] [place] [address] * Ferritin (08/16/2019 3:26 PM EDT) Ferritin 266 30 - 400 ng/mL [facility] Comment: Pediatric reference ranges not verified at [facility], interpret with caution. Reference ranges for females greater than 50 years of age approach values for men, i.e., 30-400 ng/mL. Blood specimen (specimen) 08/16/2019 3:26 PM EDT 08/16/2019 3:37 PM EDT Narrative Resulting Agency Comment Spec In Lab Dom Zeng MD CHEMISTRY ORDERA BLES Performing Organization Address [facility] de Phone Number [facility] [place] [address] * (ABNORMAL) Iron and TIBC (08/16/2019 3:26 PM EDT) Iron 48 30 - 150 mcg/dL [facility] TIBC 242(L) 250 - 450 mcg/dL [facility] Iron Saturation 20 20 - 50 % [facility] Blood specimen (specimen) 08/16/2019 3:26 PM EDT 08/16/2019 3:37 PM EDT Narrative Resulting Agency Comment Spec In Lab Dom Zeng MD CHEMISTRY ORDERA BLES Performing Organization Address [facility] de Phone Number [facility] [place] [address] * Sedimentation rate (08/16/2019 3:26 PM EDT) Sedimentation Rate Automated 7 0 - 20 mm/hr [facility] Blood specimen (specimen) 08/16/2019 3:26 PM EDT 08/16/2019 3:37 PM EDT Narrative Resulting Agency Comment Spec In Lab Dom Zeng MD HEMATOLOGY ORDER YANN Performing Organization Address [facility] Co de Phone Number [facility] [place] [address] * CRP, acute inflammation (08/16/2019 3:26 PM EDT) C-Reactive Protein 1.3 <=4.9 mg/L [facility] Blood specimen (specimen) 08/16/2019 3:26 PM EDT 08/16/2019 3:37 PM EDT Narrative Resulting Agency Comment Spec In Lab Dom Zeng MD CHEMISTRY ORDERA BLES [facility] [place] [address] documented in this encounter Visit Diagnoses Diagnosis Pancytopenia Other pancytopenia Anemia, unspecified type Thrombocytopenia Thrombocytopenia, unspecified documented in this encounter Care Teams Aoc Plans Intelligence Officer Chief Relationship Specialty Start Date End Date Alma Farfan MD [address] [place] [phone] PCP - General Family Medicine 04/06/19 11/04/24 documented as of this encounter
--- OUTSIDE RECORDS SUMMARY | 2024-11-22 17:33 | XMS_ITS | Encounter Summary ---
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 Social History [...] 1:30 PM EST Appointment XRay at [address] [place] [phone] Laurent Cabrera MD [facility] [place] [address] 11/29/2024 2:20 PM EST Office [place] [phone] Laurent Cabrera MD [facility] [place] [address] (work) documented as of this encounter Procedures Procedure Name Priority Date/Time Associated Diagnosis Comments SCAN, PERIPHERAL BLOOD Routine 9 1:20 PM EDT HEMOGRAM Routine 04/18/2019 1:20 PM EDT 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 DIFFERENTIAL, AUTOMATED Routine 04/18/2019 1:20 PM EDT 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 PROTHROMBIN TIME Routine 04/18/2019 1:20 PM EDT 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 CBC (WITH DIFF) Routine 04/18/2019 1:20 PM EDT 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 COMPREHENSIVE METABOLIC PANEL Routine 04/18/2019 1:20 PM EDT 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 documented in this encounter Results * Scan, Peripheral Blood (04/18/2019 1:20 PM EDT) Plat estimate Decreased [facility] RBC Morphology Abnormal [facility] Hypochromia Slight [facility] Ovalocytes 1-5 /HPF [facility] Blood specimen (specimen) 04/18/2019 1:20 PM EDT 04/18/2019 1:33 PM EDT Narrative Resulting Agency Comment Spec In Lab Ijeoma Singer MD HEMATOLOGY ORDERABLE S [facility] [place] [address] * (ABNORMAL) Differential, Automated (04/18/2019 1:20 PM EDT) Neutrophil % 69.2 % [facility] Neutrophil Absolute 0.56(L) 1.70 - 6.10 x10(3)/mc L [facility] Lymph % 21.0 % [facility] Lymphocytes Abs 0.2(L) 0.9 - 3.2 x10(3)/mc L [facility] Monocyte % 8.6 % [facility] Monocyte Abs 0.1(L) 0.3 - 0.9 x10(3)/[facility] Eos % 0.0 % [facility] Eosinophils Abs 0.0 0.0 - 0.4 x10(3)/[facility] Basophil % 1.2 % [facility] Baso Absolute 0.0 0.0 - 0.1 x10(3)/[facility] Immature Gran % 0.00 % [facility] Comment: Immature granulocytes(IG's)percentage and absolute count will include metamyelocytes, myelocytes, and promyelocytes. Blood smears from CBCs yielding IG's will be scanned manually for concordance. If this scan disagrees with the automated IG or if promyelocytes are noted, a manual differential will be performed. Immature Gran Absolute 0.00 0.00 - 0.04 x10(3)/[facility] Blood specimen (specimen) 04/18/2019 1:20 PM EDT 04/18/2019 1:33 PM EDT Narrative Resulting Agency Comment Spec In Lab Ijeoma Singer MD HEMATOLOGY ORDERABLE S [facility] [place] [address] * (ABNORMAL) Hemogram (04/18/2019 1:20 PM EDT) White Blood Cell 0.8(Criti gee) 4.0 - 9.5 x10(3)/[facility] Comment: This result has been called to IJEOMA SINGER by Cadence Zimmerman on 04 18 2019 at 1433, and has been read back. Red Blood Cell 4.10 4.00 - 5.21 x10(6)/ L [facility] Hemoglobin 11.1(L) 11.7 - 15.5 gm/dL [facility] Hematocrit 35.5(L) 35.7 - 45.8 % [facility] Mean Cell Volume 86.6 82.6 - 94.4 fL [facility] Mean Cell Hemoglobin 27.1 27.1 - 32.0 pg [facility] Mean Cell Hemoglobin Concentration 31.3(L) 31.7 - 35.0 gm/dL [facility] Platelet 40(L) 145 - 357 x10(3)/mc L [facility] RDW Standard Deviation 49.9(H) 37.0 - 46.0 fL [facility] RDW coefficient of variation 15.8(H) 11.5 - 14.1 % [facility] Mean Platelet Volume 10.6 7.6 - 12.9 fL [facility] NRBC Absolute 0.000 0.000 - 0.000 x10(3)/mc L [facility] Blood specimen (specimen) 04/18/2019 1:20 PM EDT 04/18/2019 1:33 PM EDT Narrative Resulting Agency Comment Spec In Lab Ijeoma Singer MD HEMATOLOGY ORDERABLE S [facility] [place] [address] * Comprehensive metabolic panel (non-fasting) (04/18/2019 1:20 PM EDT) Glucose 90 65 - 199 mg/dL [facility] Comment:Diabetes: >=200 mg/d L plus symptoms Blood Urea Nitrogen 11 8 - 18 mg/dL [facility] Creatinine 0.85 0.70 - 1.20 mg/dL [facility] Sodium 142 135 - 145 mmol/L [facility] Potassium 4.3 3.5 - 5.0 mmol/L [facility] Comment: Please note: ??Patients with WBC >100,000 may have falsely elevated Potassium levels. ??For accurate Potassium quantification in these patients send serum separator tube (gold top) for subsequent determinations. ??Contact the Clinical Chemistry Laboratory if there are any questions. Chloride 106 98 - 107 mmol/L [facility] Carbon Dioxide 28 22 - 31 mmol/L [facility] Anion Gap 8 5 - 15 mmol/L [facility] Calcium 9.0 8.5 - 10.5 mg/dL [facility] Protein, Total 7.0 6.1 - 8.0 gm/dL [facility] Albumin 3.9 3.2 - 5.2 gm/dL [facility] Aspartate Aminotransferase 19 0 - 30 unit/L [facility] Alanine Aminotransferase 13 0 - 30 unit/L [facility] Alkaline Phosphatase 97 40 - 104 unit/L [facility] Bilirubin, Total 0.5 0.2 - 1.3 mg/dL [facility] Est Glomerular Filtration Rate 76 >=60 mL/min/1. 73 m?? [facility] Comment: The eGFR was calculated using the CKD-EPI equation. As with all creatinine based estimates of kidney function, eGFR values calculated with the CKD-EPI equation are not accurate in patients with acute kidney failure, extremes of body mass or the acutely ill. http://[employer]/DHMCnkf eGFR 88 >=60 mL/min/1. 73 m?? [facility] Comment: The eGFR was calculated using the CKD-EPI equation. As with all creatinine based estimates of kidney function, eGFR values calculated with the CKD-EPI equation are not accurate in patients with acute kidney failure, extremes of body mass or the acutely ill. http://[employer]/DHMCnkf Blood specimen (specimen) 04/18/2019 1:20 PM EDT 04/18/2019 1:33 PM EDT Narrative Resulting Agency Comment Spec In Lab Ijeoma Singer MD CHEMISTRY ORDERABLES [facility] [place] [address] * (ABNORMAL) Prothrombin Time (04/18/2019 1:20 PM EDT) Prothrombin Time 16.8(H) 9.4 - 12.5 sec [facility] International Normalization Ratio 1.5 [facility] Comment: An INR <2.0 indicates adequate [...] Resulting Agency Comment Spec In Lab Ijeoma Singer MD HEMATOLOGY ORDERABLE S [facility] [place] [address] documented in this encounter Visit Diagnoses Diagnosis 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
--- OUTSIDE RECORDS SUMMARY | 2024-11-22 17:33 | XMS_ITS | Encounter Summary ---
Author Organization [facility] Address [facility] [address] [place] [address] Care Team Providers Care Ceramic Designer Name Role Phone Alma Farfan MD Primary Care Provider [phone] Encounter Details Date Type Department Care Team (Late st Contact Info) Description 06/19/2019 1:00 PM EDT - 06/19/2019 1:30 PM EDT [place] [phone] Ijeoma Smith MD [facility] [place] [address] EGD WITH BIOPSY (WRVU 2.39) Social History Tobacco Use Types Packs/Day Years [...] Sign Reading Time Taken Comments Blood Pressure 115/54 06/19/2019 11:51 AM EDT Pulse 77 06/19/2019 11:51 AM EDT Temperature 37 ??C (98.6 ??F) 06/19/2019 11:51 AM EDT Respiratory Rate - - Oxygen Saturation 95% 06/19/2019 11:51 AM EDT Inhaled Oxygen Concentration - - Weight [...] better as expected. Tuesday-Tuesday Same Day Endo [phone] [id number] Otherwise contact [phone] and ask to speak to the facility maintenance technician monitoring coordinator Follow-up care is a brown part of [...] 11/29/2024 1:30 PM EST Appointment XRay at [address] [place] [phone] Laurent Cabrera MD [facility] [place] [address] 11/29/2024 2:20 PM EST Office Visit Orth[facility]edics at [facility] [place] [address] Laurent Cabrera MD [facility] [place] [address] documented as of this encounter Procedures Procedure [...] PM EDT 06/19/2019 1:22 PM EDT Narrative [facility] - 06/19/2019 1:22 PM EDT Specimen requisition ordered. ??Separate Pathology report to follow Ijeoma Smith MD PATHOLOGY/CYTOLOGY O RDERABLES [facility] [place] [address] * Surgical Pathology Report (06/19/2019 1:20 PM EDT) Final Diagnosis [id number] ? Location: 4T; EA11; A The signing [...] Baker MD Verified: ??06/21/2019 ?Pathologist Performed at: ??-[facility] Dept. of Pathology, [place], [place] CLINICAL INFORMATION Specimen Submitted: A - Gastric antrum and body Clinical History and Diagnosis: 58-year-old female with cirrhosis, portal hypertension, gastric ulcers SPECIMEN PROCESSING A - Labeled/Fixativ e: Gastric antrum body, formalin. Quantity/Size: Four, 0.2-0.5 cm. Tissue Description: Soft, strips of pascual-pink mucosal tissues. Sections/Proces sing: Submitted en toto ??in 1 cassette labeled A1. ??pps 06/21/2019 4:46 PM EDT [facility] GI Biopsy 06/19/2019 1:20 PM EDT 06/19/2019 1:20 PM EDT Ijeoma Smith MD PATHOLOGY/CYTOLOGY O RDGRAYSONBLES [facility] [place] [address] * UPPER GI ENDOSCOPY (06/19/2019 12:25 PM EDT) UPPER GI ENDOSCOPY [facility] Endoscopy Procedure Date: 06/19/2019 12:25 PM ? Patient Name: Tara Yun ? N: [id number] ? Date of : 1960 ? Age: 58 ? Order #: [id number] ? Instrument Name: [id number] ? Procedure: ? Upper GI endoscopy Indications: ? Iron deficiency anemia, Cirrhosis ? with suspected esophageal varices Providers: ? Ijeoma Smith MD, Christiano Ortez, KENN, ? Karen Holliday, C++ Quant Developer, ? Dom Sterling MD: ?Alma Farfan MD [...] CRNA) documented in this encounter Care Teams Ceramic Designer Relationship Specialty Start Date End Date Alma Farfan MD [address] [place] [phone] PCP - General Family Medicine 04/06/19 11/04/24 documented as of this encounter
--- OUTSIDE RECORDS SUMMARY | 2024-11-22 17:33 | XMS_ITS | Encounter Summary ---
Author Organization [facility] [place] [address] Care Team Providers Care Vehicle Care Specialist Name Role Phone Alma Farfan MD Primary Care Provider [phone] Encounter Details Date Type Department Care Team (Late st Contact Info) Description 04/23/2019 1:54 PM EDT - 04/23/2019 4:45 PM EDT Hospital Encounter [place] [id number] Dom Zeng MD Discharge Disposition: Home Social History Tobacco Use [...] Sign Reading Time Taken Comments Blood Pressure 128/71 04/23/2019 3:50 PM EDT Pulse 83 04/23/2019 3:55 PM EDT Temperature 37.1 ??C (98.8 ??F) 04/23/2019 2:06 PM ED T Respiratory Rate 12 04/23/2019 4:27 PM EDT Oxygen Saturation 94% 04/23/2019 4:27 PM EDT Inhaled Oxygen Concentration - - Weight 99.8 kg (220 lb) 04/23/2019 2:06 PM EDT Height 165.1 cm (5' 5) 04/23/2019 2:06 PM EDT Body Mass Index 36.61 04/23/2019 2:06 PM EDT documented in this encounter Discharge Instructions * Discharge Instructions* Ruth Whittington RN - 04/23/2019 2:45 PM EDT OUTPATIENT SURGERY POST-OPERATIVE INSTRUCTIONS BONE MARROW BIOPSY SITE 1. You have had a bone marrow aspiration and or/biopsy, which is like having an operation with a tiny, deep incision. 2. Do Not do any strenuous work today, like housework, yard work, sports of any kind or lifting more than 5 pounds as it may cause your bone marrow site to bleed. 3. To avoid infection, leave the clear plastic dressing on the site for three days. You may shower,bathe, or swim as you wish, provided the clear dressing remains intact, and all sides of the dressing are firmly adhered to the skin. In the unlikely event that a portion or the entire dressing should come off, you may replace it with a conventional cloth band aid. However, you will no longer be able to get the site wet until three days have passed, as a conventional band aid is not waterproof and the site is no longer a sterile area. 4. It is not unusual for the site to leak a scant amount of blood, so do not be alarmed to see a small collection, or ???puddle?? of blood under the dressing. Wound healing will still occur. 5. If you are uncertain if there is an increase in any leaking from your bone marrow site, roll up a towel, lie down on a firm surface, place the towel directly over the puncture site to apply pressure, and rest there for one half hour. Direct, FIRM thumb pressure applied to the site for 10 minutesworks well as an alternative method. Leave the dressing on. 6. Most people do not experience much discomfort after this procedure, but if you do, you should ask your physician what to take. AVOID ASPIRIN PRODUCTS as these interfere with clotting. 7. After three days, remove your dressing and leave it off, so the air can get to the site to finish the healing process. 8. NOTIFY YOUR DOCTOR FOR: a. Redness b. Heat c. Fever d. Swelling e. Drainage f. Increased pain g. Foul odor (which may not be apparent through the dressing) If you are having problems or have any additional concerns or questions: Between 8am and 5pm - Call the Hematology Clinic at . After 5pm or on a weekend: Call the [facility] boring machine operator at and ask for the physician accounts payable professional covering for your doctor. Instructions following sedation You may have received medication before and/or during your procedure, which affects judgement and reaction time. Use caution with stairs. Do not drive, operate machinery, drink alcoholic beverages, or make any legal decisions for 24 hours. You may eat a regular diet as tolerated. Do not smoke if you are alone. IV site -- slight redness, or tenderness is normal, you can use a warm compress. If tenderness and redness increases or foul drainage occurs, please contact your [facility] [address] ??? [place] [address] ??? [phone] ??? [email or web address] ??? [facility] ??? [facility] ??? .[facility], [facility] [place] documented in this encounter Medications at Time [...] as of this encounter H&P Notes * Juliet Simmons APRN - 04/23/2019 2:53 PM EDT Pre-Sedation Assessment: Planned procedure: bone marrow biopsy and aspirate Indications: pancytopenia Diagnosis: ?MDS Assessment: Cardiovascular: Rhythm: Regular Rate: Normal Pulmonary: diffuse wheezing. Nebulizer given. Left middle lobe with residual exp wheeze ASA: 4: Patient with severe systemic disease that is a constant threat to life Mallampati: II: tonsillar pillars are blocked by the tongue H&P reviewed: Yes Relevant diagnostic studies: labs pending Confirm NPO status: Yes, Date and Time of last intake: last evening History of anesthetic complications: No Current medications reviewed: Yes Allergies reviewed: Yes Alcohol use: denies, Date and Time of last drink: n/a Drug use: denies Sedation Plan: moderate (conscious sedation) The sedation plan, its benefits and risks, and alternatives were discussed with the patient. The planned procedure, its benefits and risks, and alternatives were discussed with the patient. The patient consented to the procedure. Discharge to: Home with her step maurabriter Juliet Franco. MERE Simmons documented in this encounter Procedure Notes * Juliet Simmons APRN - 04/23/2019 2:54 PM EDTProcedure(s): ANES DIAGNOSTIC BONE MARROW BIOPSIES & ASPIRATIONS Pre-Procedure Diagnose(s): Pancytopenia BONE MARROW BIOPSY AND ASPIRATION PROCEDURE NOTE Bone marrow biopsy with sedation Consent: Signed and on chart DIAGNOSIS: pancytopenia IV ACCESS: peripheral Pre-Procedure: (x) Pt and family educated about bone marrow biopsy and aspiration. (x) Consent signed (scanned into pt's chart) (x) CBC drawn within 3 days. (x) Medications/Allergies/Problem List reviewed Prior to start of procedure the following is verified in a Time Out: (x) Patient identity (x) Planned procedure (x) Safety concerns PAIN INTERVENTION: Conscious sedation w/ Fentanyl and Versed. See conscious sedation RN notes Sterile Condition: Chlorohexidine was used to cleanse the biopsy site Sterile drapes were used to create a sterile field. Local Anesthesia: 1 % Lidocaine: total dose = 20 cc PROCEDURE: A bone marrow biopsy and aspiration was performed on the left posterior iliac crest. Tegaderm dressing placed and pressure applied to site for 30 minutes following the procedure. Estimated Blood Loss: minimal Complications: none Testing: Per bone marrow requisition Follow-up: Written/Verbal instructions for site care reviewed and given to the patient. Encouraged to call with any concerns. Follow-up with Physician as instructed. Juliet Simmons APRN documented in this encounter Nursing Notes * Aundrea Fountain RN - 04/23/2019 4:45 PM EDT Date/Procedure: Meds Given Comments 04/23/2019 BMBX Fentanyl 100 mcg Midazolam 4 mg Patient very anxious throughout procedure, tearful at times, complained of pain throughout procedure. Patient redirected with soft encouraging words, deep breathes and touch. Patient resting in bed post procedure, rates pain 2/10, just a mild dull ache. 1639 Towel pressure removed from procedure site, site monitored by this garment presser, no drainage noted. Dressing loose, new dressing applied, patients step-daughter stock driver visualized. Patient and driveradvised to monitor after leaving [facility], if sxs of bleeding occur, advised to apply thumb or towel pressure, if drainage does not stop, go to closest Emergency Room. Contact provider with all concerns, both parties verbalized understanding. Patient discharge instructions and medications reviewed with patient and stock driver prior to procedure, allquestions answered, all verbalized understanding. Written i nstructions sent home with patient in purse. documented in this encounter Plan of Treatment Upcoming Encounters Date Type Department Care Team (Late st Contact Info) Description 11/29/2024 1:30 PM EST Appointment XRay at [address] [place] [phone] Laurent Cabrera MD [facility] [place] [address] 11/29/2024 2:20 PM EST Office [place] [address] Laurent Cabrera MD [facility] DR [place] [address] documented as of this encounter Procedures Procedure Name Priority Date/Time Associated Diagnosis Comments IMMUNOPHENOTYPING FLOW CYTOMETRY (BLOOD) Routine 04/23/2019 3:51 PM EDT MYELOID SEQ PANEL Routine 04/23/2019 3:5 1 PM EDT BONE MARROW FINAL REPORT Routine 019 3:51 PM EDT IRON STAIN, BONE MARROW Routine 04/23/20 19 3:51 PM EDT BONE MARROW PANEL ([facility]/APD) Routine 04/23/2019 3:51 PM EDT ([facility]) BONE MARROW BIOPSY AND ASPIRATION; DIAGNOSTIC (WRVU 1.44) 04/23/2019 3:25 PM EDT pancytopenia HEMOGRAM Routine 04/23/2019 2:30 PM EDT DIFFERENTIAL, AUTOMATED Routine 04/23/20 19 2:30 PM EDT CBC (WITH DIFF) Routine 04/23/2019 2:30 PM EDT KARYOTYPING, BONE MARROW [facility] Routine 04/23/2019 9:03 AM EDT documented in this encounter Results * Bone Marrow Final Report (04/23/2019 3:51 PM EDT) Final Diagnosis [id number] ? [place] [facility] The signing pathologist has (i) examined the relevant preparation(s) for the specimen(s) and (ii) rendered or confirmed the diagnosis(es). . ? Final Integrated Report INTEGRATED DIAGNOSIS SPECIMEN RESULTS Bone marrow (Peripheral blood/aspirate smears, touch imprint, core biopsy): 1. Pancytopenia, peripheral blood. 2. Normocellular marrow (~40-50%) with maturing trilineage hematopoiesis ?? and relative erythroid hyperplasia. 3. No morphologic evidence for involvement of the blood or marrow by a ?? myeloid or lymphoproliferative neoplasm. 4. Normal 46,XX karyotype. 5. Negative tests for common mutations associated with myeloid neoplasms ?? (see Discussion). SYNOPSIS OF ANCILLARY STUDY RESULT(S) Immunophenotyping: Bone marrow aspirate, flow cytometry: - No increased myeloblast or immunophenotypically abnormal myeloid ??populations identified (see Discussion). Molecular genetic analysis: Myeloid Seq Panel: NO variants not detected Cytogenetic analysis: Karyotyping, [facility]: ??46,XX[20]. DISCUSSION: Flow cytometry immunophenotype analysis was performed concurrently on the bone marrow aspirate specimen (see separate report) and showed no evidence for an increased blast population to suggest a diagnosis of a high grade myelodysplastic syndrome (MDS) or acute leukemia. Immunostaining does not identify a T- or B- cell lymphoproliferative neoplasm, including LGL leukemia. Given the relatively unremarkable morphologic features of the cell populations and normal cyto/molecular genetic test results, therefore, the etiology of pancytopenia is not readily apparent from review of this blood and bone marrow biopsy specimen. Yakov dysplastic features are not seen in enough cells in any cell line in the current material to make a definitive diagnosis of a myelodysplastic syndrome (MDS) at this time. Additional diagnostic considerations for cytopenias may include nutritional and essential element deficiencies, liver disease with hypersplenism, alcohol use, toxic exposures, chronic viral infections or autoimmune disorders. Though the current findings do not rise to the level of a diagnosis of MDS at this time if cytopenias persist without a diagnosis, a repeat bone marrow examination may provide additional diagnostic clarity as we may be in the early phase of an evolving process. This is a summary report; collating results from all diagnostic studies performed at [facility] on this particular biopsy specimen. ??Please refer to the primary report(s) of each individual study for complete text and additional study details. . Electronically signed by: ??Pam Keen MD Verified: ??05/11/2019 ?Hematopathologist Performed at: ??-[facility] Dept. of Pathology, [place], [place] ? Bone Marrow Final DIAGNOSIS Bone marrow (Peripheral blood/aspirate smears, touch imprint, core biopsy): . DIAGNOSIS 1. Pancytopenia, peripheral blood. 2. Normocellular marrow (~40-50%) with maturing trilineage hematopoiesis ?? and relative erythroid hyperplasia. 3. No morphologic evidence for involvement of the blood or marrow by a ?? myeloid or lymphoproliferative neoplasm (see Discussion) ?? . Electronically signed by: ??Pam Keen MD Verified: ??04/25/2019 ?Hematopathologist Performed at: ??-[facility] Dept. of Pathology, [place], [place] DISCUSSION Flow cytometry immunophenotype analysis was performed concurrently on the bone marrow aspirate specimen (see separate report) and showed no evidence for an increased blast population to suggest a diagnosis of a high grade myelodysplastic syndrome (MDS) or acute leukemia. Immunostaining does not identify a T- or B- cell lymphoproliferative neoplasm, including LGL leukemia. ?Given the relatively unremarkable morphologic features of the cell populations, therefore, the ? etiology of pancytopenia is not readily apparent from review of this blood and bone marrow biopsy specimen. Yakov dysplastic features are not seen in enough cells in any cell line in the current material to make a definitive diagnosis of a myelodysplastic syndrome (MDS) at this time. Additional diagnostic considerations for cytopenias may include nutritional and essential element deficiencies, liver disease with hypersplenism, alcohol use, toxic exposures, chronic viral infections or autoimmune disorders. Though the current findings do not rise to the level of a diagnosis of MDS at this time, such a diagnosis could be supported if cytopenias persist, the aforementioned conditions are excluded or resolved and there is demonstration of a relevant clonal cytogenetic abnormality. Accordingly, the specimen has been submitted for cytogenetic and myeloid neoplasm mutational analysis, and the results will be reported separately with a final integrated report issued subsequently. Reassuringly, there is no overt evidence for acute leukemia or for marrow infiltration by a lymphoproliferative neoplasm at present. If cytopenias persist without a diagnosis, a repeat bone marrow examination may provide additional diagnostic clarity as we may be in the early phase of an evolving process. PERIPHERAL SMEAR The white blood cell count is 1.0K/uL. There is absolute neutropenia (ANC = 0.72K/ uL) but mature neutrophils have normal morphology. There is absolute lymphopenia (ALC = 0.2K/uL) and occasional atypical lymphocytes are present but no frankly abnormal forms are seen. Mild normocytic anemia is evident (Hgb 11.0 g/dL; MCV 87.9 fL), and RBC morphology is notable for slight anisopoikilocytosis with occasional ovalocytes present. There is no increase in schistocytes or spherocytes, and no rouleaux formation is noted. Platelets are decreased in number (34K/uL) but exhibit normal morphologic features. No blasts or abnormal circulating cell populations are appreciated. Neutrophils/bands 71%, Lymphocytes 17%, Monocytes 10%, Eosinophils 2%, Basophils 0%, Immature granulocytes 0%, Erythroid precursors 0/100 WBC. BONE MARROW ASPIRATE The bone marrow aspirate is pauciparticulate but cellular with a slight relative erythroid hyperplasia such that the myeloid:erythroid (M:E) ratio is estimated at approximately 1:1. A neoplastic infiltrate is not identified. Myeloid maturation is sequential to the neutrophil without dysplastic features or an increase in blasts, and erythroid precursors show normoblastic maturation. Megakaryocytes are normal in number and morphology. Plasma cells and lymphocytes have normal morphology and are not increased in number. An iron stain was performed but is not suitable for evaluation of storage iron due to the aparticulate nature of the specimen. No ring sideroblasts are identified. . DIFFERENTIAL A 300-cell differential count is performed on the bone marrow aspirate (100) and touch imprint (200): Neutrophils/bands 20%, Lymphocytes 6%, Monocytes 0%, Eosinophils 3%, Basophils 0%, Metamyelocytes 9%, Myelocytes 8%, Promyelocytes 7%, Blasts 4%, Erythroid precursors 40%, Plasma cells 2%. ENZYME CYTOCHEMISTRY N/A BONE MARROW BIOPSY and/or CLOT The decalcified bone marrow biopsy specimen consists of cortical and trabecular bone and hematopoietic tissue in tonguer arrangement. The bone marrow is normocellular for age with an overall cellularity estimated at approximately 40-50%. Myeloid maturation is once again seen as sequential to the neutrophil without an increase in blasts, and active islands of maturing erythroid precursors are abundant throughout reflecting the relative erythroid hyperplasia noted also in the aspirate smears. Megakaryocytes are present in normal number, have a generally normal morphology and are distributed in a normal pattern throughout the bone marrow space without significant cluster formation or abnormal localization. There are no lymphoid aggregates, granulomata or abnormal infiltrating nonhematopoietic cell populations identified. The immunostains for CD3 and CD20 highlight T-cells and B-cells, respectively, dispersed throughout the marrow space in a normal pattern. T-cells show a roughly equal mixture of CD4+ and CD8+ forms, and the immunostains for TIA1 and granzyme B highlight scattered single T-cells throughout without identifying significant clusters or intrasinusoidal collections. The bony trabeculae appear normal for age. Immunohistochemistry Studies: Formalin-fixed, paraffin-embedded tissue sections are studied using the polymer system technique with appropriate positive and negative controls. ? These IHC studies provide the pathologist with adjunctive diagnostic information. Antibody specificity has been verified by testing antibodies on a series of in-house tissues with known immunohistochemical performance characteristics. The clinical interpretation of any antibody positive staining or its absence is evaluated within the context of clinical presentation, morphology, histopathological criteria and other diagnostic tests. Block ? Antibody ?Result (Positive/Negative) A1 ? CD3 ? See above discussion ? CD20 ? CD4 ? CD8 ? TIA1 ? Granzyme B CLINICAL INFORMATION Specimen: ? Bone marrow aspirate and biopsy, Left Clinical Diagnosis: ? Pancytopenia Indication for Study: ?? Evaluate etiology of pancytopenia ?Flow Cytometry DIAGNOSIS Bone marrow aspirate, flow cytometry: - No increased myeloblast or immunophenotypically abnormal myeloid ??populations identified (see Discussion). Electronically signed by: ??Pam Keen MD Verified: ??04/24/2019 ?Hematopathologist Performed at: ??-[facility] Dept. of Pathology, [place], [place] . DISCUSSION An increased blast population is not identified using a CD45/right angle light scatter gating strategy, and CD34+/CD117+ myeloblasts account for not more than 1% of total nucleated cells. Granulocytes show an unremarkable CD11b/CD13/CD16 maturation pattern, and there is no aberrant expression of CD56 on monocytes. A population consistent with benign hematogones with the expected heterogeneous antigen profile of CD45(dim)+/CD19+/CD10 is present, accounting for about 4% of total events. In summary, there is no immunophenotypic evidence for involvement of this bone marrow aspirate specimen by acute leukemia or a high grade myelodysplastic syndrome. These findings support the morphologic impression (see separate report). Flow analysis is an ancillary study. A definite diagnosis requires correlation with the morphologic features of this process and if necessary, correlation with other ancillary studies like immunohistochemistry, enzyme cytochemistry and/or cyto/ molecular genetics. This test was developed and its performance characteristics determined by the Clinical Flow Cytometry Laboratory at [facility]. It has not been cleared or approved by the U.S. Food and Drug Administration. ??The FDA has determined that such clearance or approval is not necessary. ??This test is used for clinical purposes. ??It should not be regarded as investigational or for research. This laboratory is certified under the Clinical Laboratory Improvement Act of 1988 (CLIA) as qualified to perform high complexity clinical laboratory testing. SPECIMEN PROCESSING [id number] Cells for immunophenotypic analysis were derived from bone marrow. CD45 vs side scatter gating was utilized to identify a CD45 dim, a monocytic, and a granulocytic analysis region that comprises approximately 5%, 3-4%, and 65-68% of all cells, respectively. The following markers were assessed: CD3, CD11b, CD13, CD14, CD16, CD19, CD34, CD45, CD56, CD117, and HLA-DR. CLINICAL INFORMATION 58 yo woman with pancytopenia. 05/11/2019 1:03 PM EDT [facility] BONE MARROW STRUCTURE / Unknown 04/23/2019 3:51 PM EDT 04/23/2019 3:51 PM EDT Dom Zeng MD PATHOLOGY/CYTOLO GY ORDERABLES Performing Organization Address [facility] Co de Phone Number [facility] [place] [address] * Myeloid Seq Panel (04/23/2019 3:51 PM EDT) Bone marrow specimen (specimen) 04/23/2019 3:51 PM EDT 04/24/2019 7:59 AM EDT Narrative Resulting Agency Comment Spec In Lab Dom Zeng MD CHEMISTRY ORDERA BLES Performing Organization Address [facility] Co de Phone Number [facility] [place] [address] * Immunophenotyping Flow Cytometry (04/23/2019 3:51 PM EDT) Immunophenotyping Flow See Comment [facility] Comment: When completed by the Pathologist, the Flow Cytometry Report ([id number]) will display under the Pathology Results section within eD. Bone marrow specimen (specimen) 04/23/2019 3:51 PM EDT 04/23/2019 4:31 PM EDT Narrative Resulting Agency Comment Spec In Lab Dom Zeng MD HEMATOLOGY ORDER YANN Performing Organization Address [facility] Co de Phone Number [facility] [place] [address] * Iron Stain, Bone Marrow (04/23/2019 3:51 PM EDT) Bone Marrow Iron Stain See Comment [facility] Comment:See Bone Marrow Repo rt [id number] under Hematopathology Reports. Bone marrow specimen (specimen) 04/23/2019 3:51 PM EDT 04/23/2019 4:31 PM EDT Narrative Resulting Agency Comment Spec In Lab Dom Zeng MD HEMATOLOGY ORDER YANN [facility] [place] [address] * (ABNORMAL) Differential, Automated (04/23/2019 2:30 PM EDT) Neutrophil % 71.3 % [facility] Neutrophil Absolute 0.72(L) 1.70 - 6.10 x10(3)/[facility] Lymph % 16.8 % [facility] Lymphocytes Abs 0.2(L) 0.9 - 3.2 x10(3)/[facility] Monocyte % 9.9 % [facility] Monocyte Abs 0.1(L) 0.3 - 0.9 x10(3)/[facility] Eos % 2.0 % [facility] Eosinophils Abs 0.0 0.0 - 0.4 x10(3)/[facility] Basophil % 0.0 % [facility] Baso Absolute 0.0 0.0 - 0.1 x10(3)/[facility] Immature Gran % 0.00 % [facility] Comment: Immature granulocytes(IG's)percentage and absolute count will include metamyelocytes, myelocytes, and promyelocytes. Blood smears from CBCs yielding IG's will be scanned manually for concordance. If this scan disagrees with the automated IG or if promyelocytes are noted, a manual differential will be performed. Immature Gran Absolute 0.00 0.00 - 0.04 x10(3)/ L [facility] Blood specimen (specimen) 04/23/2019 2:30 PM EDT 04/23/2019 3:05 PM EDT Narrative Resulting Agency Comment Spec In Lab Dom Zeng MD HEMATOLOGY ORDER YANN [facility] [place] [address] * (ABNORMAL) Hemogram (04/23/2019 2:30 PM EDT) White Blood Cell 1.0(Criti gee) 4.0 - 9.5 x10(3)/mc L [facility] Comment: This result has been called to KAEL JAEGER by Celena Huggins on 04 23 2019 at 1535, and has been read back. Red Blood Cell 3.96(L) 4.00 - 5.21 x10(6)/mc L [facility] Hemoglobin 11.0(L) 11.7 - 15.5 gm/dL [facility] Hematocrit 34.8(L) 35.7 - 45.8 % [facility] Mean Cell Volume 87.9 82.6 - 94.4 fL [facility] Mean Cell Hemoglobin 27.8 27.1 - 32.0 pg [facility] Mean Cell Hemoglobin Concentration 31.6(L) 31.7 - 35.0 gm/dL [facility] Platelet 34(L) 145 - 357 x10(3)/mc L [facility] RDW Standard Deviation 51.0(H) 37.0 - 46.0 fL [facility] RDW coefficient of variation 15.9(H) 11.5 - 14.1 % [facility] Mean Platelet Volume 10.0 7.6 - 12.9 fL [facility] NRBC% auto 0.0 % [facility] NRBC Absolute 0.000 0.000 - 0.000 x10(3)/mc L [facility] Blood specimen (specimen) 04/23/2019 2:30 PM EDT 04/23/2019 3:05 PM EDT Narrative Resulting Agency Comment Spec In Lab Dom Zeng MD HEMATOLOGY ORDER [facility] [place] [place] [address] * Karyotyping, Bone Marrow (04/23/2019 9:03 AM EDT) Karyotyping, Bone Marrow Test ?Result ? Flag ??Unit ??RefValue Chromosomes, Hematologic, BM ??Result Summary ?Normal ??Interpretation ?No clonal abnormality was apparent. ??Result ?46,XX[20] ??Reason for Referral ? pancytopenia ??Specimen ?Bone Marrow ??Method ?Culture without mitogens ??Banding Method ?SEE COMMENTS ?Band Resolution: ?<400 ? Stain Name ?Cells Analyzed ?? Cells ? Karyograms ?Counted ? Prepared ? GTL ? 20 ? 0 ? 2 ? Total ? 20 ? 0 ? 2 ?Stephens to Stain Name: GTL=G-banding; QFQ=Q-banding; ?DAPI=DAPI-stai charlee; CBL=C-banding; AGNOR=Silver-sta ining; ?NON=Non-banded ?The sum of Cells Analyzed and Cells Counted equals the ?total cells examined. ??Released By ? Jessa Izaguirre M.D. ?Test Performed by: ?[facility] ?[address] [place] [address] [facility] Bone marrow specimen (specimen) HLX Bone Marrow / Unknown 04/23/2019 9:03 AM EDT 04/24/2019 9:03 AM EDT Dom Zeng MD CHEMISTRY BRADEN SMITH Performing Organization Address [facility]/State/[facility] Co de Phone Number [facility] [place] [address] documented in this encounter Visit Diagnoses Not on filedocumented in this encounter Administered Medications Inactive Administered Medications - up to 3 most recent administrations Medication Order MAR Action Action Date Dose Rate Site ipratropium-albuterol (DUONEB) 0.5 mg-3 mg(2.5 mg base)/3 mL nebulizer solution 3 mL 3 mL, Nebulization, ONCE, 1 dose, On Tue04/23/19 at 1515, Routine Given 04/23/2019 2:55 PM EDT 3 mLs ipratropium-albuterol (DUONEB) 0.5 mg-3 mg(2.5 mg base)/3 mL nebulizer solution 1 dose, Starting on Tue04/23/19 at 1452, Until Tue04/23/19 at 1455, Aundrea Fountain: cabinet override documented in this encounter Active and Recently Administered Medications Times are shown in EDT. Scheduled Medication Order 04/21/2019 04/22/2019 04/23/2019 ipratropium-albuterol (DUONEB) 0.5 mg-3 mg(2.5 mg base)/3 mL nebulizer solution 3 mL (COMPLETED) 3 mL, Nebulization, ONCE, 1 dose, On Tue04/23/19 at 1515, Routine 1455 (Given - Provid er: Aundrea Fountain RN) PRN Medication Order 04/21/2019 04/22/2019 04/23/2019 fentaNYL 50 mcg/mL multi-dose injection (CANCELED) 25-50 mcg, Intravenous, EVERY 5 MIN PRN, Starting on Tue04/23/19 at 1413, Until Tue04/23/19 at 1646, Pain, Hold for respiratory rate less than 8 breaths per minute. (maximum dose 200 mcg), Intra-Operative (Intra-Procedure), Routine 1527 (Given - Provid er: Aundrea Fountain RN)1532 (Given - Provider: Aundrea Fountain, RN)1539 (Given - Provider: Aundrea Fountain, RN)1549 (Given - Provider: Aundrea Fountain, RN) midazolam (PF) (VERSED) multi-dose injection 0.5-2 mg (CANCELED) 0.5-2 mg, Intravenous, EVERY 5 MIN PRN, Starting on Tue04/23/19 at 1413, Until Tue04/23/19 at 1646, Sleep, Anxiety, Hold for delirium/agitation. (Maximum dose 5 mg)., Intra-Operative (Intra-Procedure), Routine 1527 (Given - Provid er: Aundrea Fountain, RN)1533 (Given - Provider: Aundrea Fountain, RN)1536 (Given - Provider: Aundrea Fountain, RN)1544 (Given - Provider: Aundrea Fountain, RN) No Frequency Medication Order 04/21/2019 04/22/2019 04/23/2019 heparin, porcine (PF) 1,000 unit/mL injection 1 dose, Starting on Tue04/23/19 at 1416, Until Tue04/23/19 at 1857, Ruth Whittington: cabinet override 1430 (Due) documented in this encounter Care Teams Vehicle Care Specialist Relationship Specialty Start Date End Date Alma Farfan MD [address] [place] [phone] PCP - General Family Medicine 04/06/19 11/04/24 documented as of this encounter
--- OUTSIDE RECORDS SUMMARY | 2024-11-22 17:33 | XMS_ITS | Encounter Summary ---
Author Organization [facility] [address] [place] [address] Care Team Providers Care [employer] Name Role Phone Alma Farfan MD Primary Care Provider Reason for Visit * Reason Comments Medication Refill Encounter Details Date Type Department Care Team (Late st Contact Info) Description 11/19/2018 Refill [place] [phone] Ijeoma Smith MD [facility] [place] [address] Social History Tobacco Use Types Packs/Day Years [...] 11/29/2024 1:30 PM EST Appointment XRay at [address] [place] [phone] Laurent Cabrera MD [facility] ORTHOPAEDIC SURGERY [place], [place] [id number] 11/29/2024 2:20 PM EST Office [place] [phone] Laurent Cabrera MD [facility] DR [place] [address] documented as of this encounter Visit Diagnoses Not on filedocumented in this encounter Care Teams [employer] Relationship Specialty Start Date End Date Alma Farfan MD [address] [place] [phone] PCP - General Family Medicine 04/06/19 11/04/24 documented as of this encounter
--- OUTSIDE RECORDS SUMMARY | 2024-11-22 17:33 | XMS_ITS | Encounter Summary ---
Author Organization [facility] [address] [place] [address] Care Team Providers Care Special Education Preschool Teacher Name Role Phone Alma Farfan MD Primary Care Provider [phone] Reason for Visit * Reason Comments Follow-up Encounter Details Date Type Department Care Team (Late st Contact Info) Description 04/06/2019 3:00 PM EDT Office Visit Hematology [place] [address] Dom Zeng MD Stearns, Diane M, JINGLE WRITER [facility] [address] [place] [address] Pancytopenia; Anemia, unspecified type; Enlargement of spleen; Iron deficiency anemia, unspecified iron deficiency anemia type; MGUS (monoclonal gammopathy of unknown significance); Hepatic cirrhosis, unspecified hepatic cirrhosis type, unspecified whether ascites present Social History Tobacco Use Types Packs/Day [...] Sign Reading Time Taken Comments Blood Pressure 112/54 04/06/2019 2:36 PM EDT Pulse 69 04/06/2019 2:36 PM EDT Temperature 36.6 ??C (97.9 ??F) 04/06/2019 2:36 PM ED T Respiratory Rate 18 04/06/2019 2:36 PM EDT Oxygen Saturation 94% 04/06/2019 2:36 PM EDT Inhaled Oxygen Concentration - - Weight 100.3 kg (221 lb 3.2 oz) 04/06/2019 2:36 PM EDT Height 164.4 cm (5' 4.72) 04/06/2019 2:36 PM ED T Body Mass Index 37.12 04/06/2019 2:36 PM EDT documented in this encounter Progress Notes * Dom Zeng MD - 04/06/2019 3:00 PM EDT HEMATOLOGY/BMT CONSULTATION VISIT NOTE CHIEF COMPLAINT: Tara Yun is a 58 y.o. female re-referred by Alma Farfan MD for evaluation of pancytopenia. She was last seen in Jul 2017. Data Review (From Dr. Farfan and eD) [...] 08/08/17 CBC - 1.8/12.1/41 03/25/19 CBC - 1.43/11.2/43 ANC - 900 ALC - 320 Hep C Ab - POS Hep B SAb - POS Hep B SAg - POS ?? PREVIOUS HISTORY OF PRESENT ILLNESS (07/2017) Tara Yun is referred back for pancytopenia after being seen in her local ER on 07/26 for syncope and found to be orthostatic in the [place] ER. From Dr. Euceda's phone note from [...] sx have not recurred. Now living in [place], [place]. Has had episodes of hypoglycemia that required her to be taken to the ER. Has next appt with Hepatology in September. Only new medication is Lyrica - but can't take due to making it difficult for her to sleep. No F/C/S. Coughed up small amt blood on one occasion but this hasn't recurred. Still having easy bruising - this hasn't changed. HISTORY OF PRESENT ILLNESS Tara Yun says my counts are low, [...] Tara is concerned she might have leukemia. SH No changes FH No changes REVIEW OF SYSTEMS Constitutional [...] K21.9 ??? Left ureteral stone N20.1 ??? MGUS (monoclonal gammopathy of unknown significance) D47.2 ??? Enlargement of spleen R16.1 ??? Anemia D64.9 ??? Anemia, iron deficiency D50.9 MEDICATIONS Current Outpatient Medications on File Prior to Visit Medication Sig Dispense Refill ??? amitriptyline (ELAVIL) 50 mg Tablet Take 1 tablet by mouth nightly. 30 tablet 2 ??? oxyCODONE (ROXICODONE) 5 mg Tablet Take 1 tablet by mouth every 4 hours as needed for Pain. 30 tablet 0 ??? rifAXIMin (RIFAXIMIN) 550 mg Tablet Take 1 tablet by mouth 2 times daily. 60 tablet 3 ??? ondansetron (ZOFRAN, HYDROCHLORIDE,) 4 mg Tablet Take 1-2 tablets by mouth every 8 hours as needed for Nausea. (Patient not taking: Reported on 08/08/2017) 12 tablet 0 ??? pantoprazole (PROTONIX) 40 mg Tablet, Delayed Release (E.C.) Take 1 tablet by mouth 2 times daily. 180 tablet 3 ??? fluticasone (FLOVENT) 110 mcg/actuation HFA Aerosol Inhaler Inhale 1 puff into the lungs 2 times daily. 1 Inhaler 3 ??? albuterol (PROAIR HFA) 90 mcg/actuation HFA Aerosol Inhaler Inhale 2 puffs into the lungs every6 hours as needed. Reported on 11/08/2016 1 Inhaler 3 ??? levothyroxine (SYNTHROID) 25 mcg Tablet Take 1 tablet by mouth daily. 30 tablet 0 ??? sucralfate (CARAFATE) 100 mg/mL Suspension Take 10 mLs by mouth 4 times daily as needed. (Patient not taking: Reported on 08/08/2017) 420 mL 0 ??? ondansetron (ZOFRAN, HYDROCHLORIDE,) 4 mg Tablet Take 1-2 tablets by mouth every 8 hours as needed for Nausea. 12 tablet 0 ??? fluticasone (FLONASE) 50 mcg/actuation [place], Suspension 1 spray 2 times daily. Reported on 11/09/2016 ??? lidocaine (LIDODERM) 5 % Adhesive Patch, Medicated Place 2 patches onto the skin daily. Apply 1patch onto the skin daily. (leave on for 12 hours and remove for 12 hours) ??? albuterol (PROVENTIL) 2.5 mg /3 mL (0.083 %) Solution for Nebulization Take 2.5 mg by nebulization every 6 hours as needed. Reported on 11/08/2016 ??? ERGOCALCIFEROL, VITAMIN D2, (VITAMIN D ORAL) Take 1,000 Units by mouth daily. ??? lactulose (CHRONULAC) 10 gram/15 mL solution Take 30 mLs by mouth 3 times daily. ??? ALPRAZolam (XANAX) 0.5 mg tablet Take 0.5 mg by mouth nightly as needed. ??? DOCUSATE SODIUM (COLACE ORAL) Take by mouth daily as needed. Reported on 11/08/2016 ??? FERROUS SULFATE, DRIED (IRON, DRIED, ORAL) Take 65 mg by mouth 3 times daily. No current facility-administered medications on file prior [...] Diabetes Brother ??? Asthma Brother PHYSICAL EXAM VITAL SIGNS: Blood pressure 112/54, pulse 69, temperature 36.6 ??C (97.9 ??F), temperature source Oral, resp. rate 18, height 164.4 cm (5' 4.72), weight 100.3 kg (221 lb 3.2 oz), SpO2 94 %. GENERAL: Tara Yun is a well-appearing 58 y.o. female in no acute distress. ENT: Sinuses non-tender. Oropharynx clear. No masses. No thrush. ENDOCRINE: No thyromegaly palpated. CARDIOVASCULAR: Heart with regular rate and rhythm without S3,S4 or murmurs. No cyanosis or peripheral edema. PULMONARY: Lungs are clear to auscultation without rales, rhonchi or wheezing. GASTROINTESTINAL: Abdomen soft and non-tender without palpable masses or hepatosplenomegaly. MUSCULOSKELETAL: Neck supple with full ROM. No spine or CVA tenderness. SKIN: No rashes, bruises or petechiae. LYMPH: No abnormal lymphadenopathy. NEUROLOGICAL: Alert and oriented to person, place and time. LABORATORY Recent Results (from the past 72 hour(s)) Folate, serum Result Value Ref Range Folate Lvl 9.0 4.8 - 24.2 ng/mL Vitamin B12 Result Value Ref Range Vitamin B-12 399 232 - 1,245 pg/mL Sedimentation rate Result Value Ref Range Sed Rate 8 0 - 20 mm/hr Iron and TIBC Result Value Ref Range Iron 40 30 - 150 mcg/dL TIBC 299 250 - 450 mcg/dL Iron Saturation 13 (L) 20 - 50 % Ferritin Result Value Ref Range Ferritin 39 30 - 400 ng/mL Immunoglobulins, Quantitative Result Value Ref Range IgG 1,089 700 - 1,600 mg/dL IgA 483 (H) 70 - 400 mg/dL IgM 51 40 - 230 mg/dL Protein Electrophoresis, serum Result Value Ref Range Total Prot Elec 6.6 6.1 - 8.0 gm/dL Comprehensive metabolic panel (non-fasting) Result Value Ref Range Glucose Lvl 130 65 - 199 mg/dL BUN 11 8 - 18 mg/dL Creatinine 0.90 0.70 - 1.20 mg/dL Sodium 143 135 - 145 mmol/L Potassium 4.0 3.5 - 5.0 mmol/L Chloride 104 98 - 107 mmol/L CO2 26 22 - 31 mmol/L Anion Gap 13 5 - 15 mmol/L Calcium 8.5 8.5 - 10.5 mg/dL Total Protein 6.6 6.1 - 8.0 gm/dL Albumin 3.6 3.2 - 5.2 gm/dL AST 16 0 - 30 unit/L ALT 13 0 - 30 unit/L Alk Phos 79 40 - 104 unit/L Total Bilirubin 0.5 0.2 - 1.3 mg/dL eGFR 70 >=60 mL/min/1.73 m?? eGFR 82 >=60 mL/min/1.73 m?? Hemogram Result Value Ref Range WBC 0.8 (CRIT) 4.0 - 9.5 x10(3)/mcL RBC 3.79 (L) 4.00 - 5.21 x10(6)/mcL Hemoglobin 10.5 (L) 11.7 - 15.5 gm/dL Hematocrit 33.7 (L) 35.7 - 45.8 % MCV 88.9 82.6 - 94.4 fL MCH 27.7 27.1 - 32.0 pg MCHC 31.2 (L) 31.7 - 35.0 gm/dL Platelets 40 (L) 145 - 357 x10(3)/mcL RDWSD 52.3 (H) 37.0 - 46.0 fL RDWCV 16.0 (H) 11.5 - 14.1 % MPV 9.8 7.6 - 12.9 fL nRBC Abs Auto 0.000 0.000 - 0.000 x10(3)/mcL Differential, Automated Result Value Ref Range Neutrophils % 71.7 % Neutr Abs (ANC) 0.61 (L) 1.70 - 6.10 x10(3)/mcL Lymphocytes % 20.0 % Lymphocytes Abs 0.2 (L) 0.9 - 3.2 x10(3)/mcL Monocytes % 7.1 % Monocyte Abs 0.1 (L) 0.3 - 0.9 x10(3)/mcL Eosinophils % 1.2 % Eosinophils Abs 0.0 0.0 - 0.4 x10(3)/mcL Basophils % 0.0 % Basophils Abs 0.0 0.0 - 0.1 x10(3)/mcL Immature Gran % 0.00 % Marcie Gran Abs 0.00 0.00 - 0.04 x10(3)/mcL RADIOLOGY - None ASSESSMENT & PLANS 1. Pancytopenia - Given normal BM Bx in 2013, anemia has been attributed to iron deficiency - now resolved and hypersplenism. --I am concerned that Tara's counts have all worsened since she was last seen. There is no causeidentified from today's labs or her previous evlauations. ?? 2. 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 ?? 3. Iron deficiency anemia - Tara continues to take daily oral iron and today's tests show adequate iron stores. ?? 5. Counseling - we reviewed graphs of Tara's lab tests over time and discussing my recommendation that she have another BM Bx (the last was in 2012) she was agreeable to this plan and would like to have conscious sedation. We reviewed the risks of the procedure Including bleeding, bruising, infection and pain during and after the biopsy. We discussed conscious sedation and that she would need a delivery driver/customer service. She completed the health survey form. ?? 6. Follow-up - Any day OK for biopsy - f/u 1-2 weeks after bx to discuss results - orders entered -health survey done. Dom Zeng MD Division of Hematology and Blood & Marrow Transplant [facility] documented in this encounter Plan of Treatment Upcoming Encounters Date Type Department Care Team (Late st Contact Info) Description 11/29/2024 1:30 PM EST Appointment XRay at [address] [place] [address] Laurent Cabrera MD [facility] [place] [address] 11/29/2024 2:20 PM EST Office [place] [address] Laurent Cabrera MD [facility] [place] [address] documented as of this encounter Procedures Procedure Name Priority Date/Time Associated Diagnosis Comments (OSC MSURG) BONE MARROW BIOPSY AND ASPIRATION; DIAGNOSTIC Routine 04/09/2019 7:52 AM EDT documented in this encounter Results * Folate, serum (04/06/2019 1:58 PM EDT) Folate 9.0 4.8 - 24.2 ng/mL [facility] Blood specimen (specimen) 04/06/2019 1:58 PM EDT 04/06/2019 2:11 PM EDT Narrative Resulting Agency Comment Spec In Lab Dom Zeng MD CHEMISTRY ORDERA BLES Performing Organization Address [facility]/ZIP Co de Phone Number [facility] [place] [address] * Vitamin B12 (04/06/2019 1:58 PM EDT) Vitamin B12 399 232 - 1,245 pg/mL [facility] Blood specimen (specimen) 04/06/2019 1:58 PM EDT 04/06/2019 2:11 PM EDT Narrative Resulting Agency Comment Spec In Lab Dom Zeng MD CHEMISTRY ORDERA BLES Performing Organization Address City/[facility]/ZIP Co de Phone Number [facility] [place] [address] * Sedimentation rate (04/06/2019 1:58 PM EDT) Sedimentation Rate Automated 8 0 - 20 mm/hr [facility] Blood specimen (specimen) 04/06/2019 1:58 PM EDT 04/06/2019 2:11 PM EDT Narrative Resulting Agency Comment Spec In Lab Dom Zeng MD HEMATOLOGY ORDER YANN Performing Organization Address [facility]/ZIP Co de Phone Number [facility] [place] [address] * (ABNORMAL) Iron and TIBC (04/06/2019 1:58 PM EDT) [facility] Iron 40 30 - 150 mcg/dL [facility] TIBC 299 250 - 450 mcg/dL [facility] Iron Saturation 13(L) 20 - 50 % [facility] Blood specimen (specimen) 04/06/2019 1:58 PM EDT 04/06/2019 2:11 PM EDT Narrative Resulting Agency Comment Spec In Lab Dom Zeng MD CHEMISTRY ORDERA BLES Performing Organization Address [facility] Co de Phone Number [facility] [place] [address] * Ferritin (04/06/2019 1:58 PM EDT) [facility] Ferritin 39 30 - 400 ng/mL [facility] Comment: Pediatric reference ranges not verified at [facility], interpret with caution. Reference ranges for females greater than 50 years of age approach values for men, i.e., 30-400 ng/mL. Blood specimen (specimen) 04/06/2019 1:58 PM EDT 04/06/2019 2:11 PM EDT Narrative Resulting Agency Comment Spec In Lab Dom Zeng MD CHEMISTRY ORDERA BLES Performing Organization Address City/[facility]/ZIP Co de Phone Number [facility] [place] [address] * (ABNORMAL) Free Light Chains, Serum (04/06/2019 1:58 PM EDT) Pathologist [facility] [place] Free Light Chains 4.95(H) 0.81 - 2.98 mg/dL [facility] Lambda Free Light Chains 2.08(H) 0.86 - 1.99 mg/dL [facility] [place]/Lambda Free Light Chain Ratio 2.3798 0.5000 - 2.4300 [facility] Comment: Please be advised that following a multi-institution study the reference interval for Serum Free Light Chains was updated December 02, 2017. Blood specimen (specimen) 04/06/2019 1:58 PM EDT 04/06/2019 2:11 PM EDT Narrative Resulting Agency Comment Spec In Lab Dom Zeng MD CHEMISTRY ORDERA BLES Performing Organization Address [facility] Co de Phone Number [facility] [place] [address] * (ABNORMAL) Immunoglobulins, Quantitative (04/06/2019 1:58 PM EDT) Pathologist [facility] Immunoglobulin G 1,089 700 - 1,600 mg/dL [facility] Comment: Pediatric Reference Intervals obtained from the Caliper Reference Interval project. http://www.sickkids.ca/caliperproject/index.html IgA 483(H) 70 - 400 mg/dL [facility] IgM 51 40 - 230 mg/dL [facility] Blood specimen (specimen) 04/06/2019 1:58 PM EDT 04/06/2019 2:11 PM EDT Narrative Resulting Agency Comment Spec In Lab Dom Zeng MD CHEMISTRY ORDERA BLES Performing Organization Address City/[facility]/ZIP Co de Phone Number [facility] [place] [address] * Protein Electrophoresis, serum (04/06/2019 1:58 PM EDT) Pathologist [facility] Total Prot Electrophoresis 6.6 6.1 - 8.0 gm/dL [facility] Albumin Electrophoresis 4.16 3.60 - 6.00 gm/dL [facility] Alpha 1 Globulin 0.19 0.10 - 0.30 gm/dL [facility] Alpha 2 Globulin 0.51 0.40 - 0.90 gm/dL [facility] Beta Globulin 0.63 0.50 - 1.00 gm/dL [facility] Gamma Globulin 1.10 0.50 - 1.30 gm/dL [facility] M1 Band None Detected None Detected [facility] Blood specimen (specimen) 04/06/2019 1:58 PM EDT 04/06/2019 2:11 PM EDT Narrative Resulting Agency Comment Spec In Lab Dom Zeng MD CHEMISTRY ORDERA BLES [facility] [place] [address] * Comprehensive metabolic panel (non-fasting) (04/06/2019 1:58 PM EDT) Glucose 130 65 - 199 mg/dL [facility] Comment:Diabetes: >=200 mg/d L plus symptoms Blood Urea Nitrogen 11 8 - 18 mg/dL [facility] Creatinine 0.90 0.70 - 1.20 mg/dL [facility] Sodium 143 135 - 145 mmol/L [facility] Potassium 4.0 3.5 - 5.0 mmol/L [facility] Comment: Please note: ??Patients with WBC >100,000 may have falsely elevated Potassium levels. ??For accurate Potassium quantification in these patients send serum separator tube (gold top) for subsequent determinations. ??Contact the Clinical Chemistry Laboratory if there are any questions. Chloride 104 98 - 107 mmol/L [facility] Carbon Dioxide 26 22 - 31 mmol/L [facility] Anion Gap 13 5 - 15 mmol/L [facility] Calcium 8.5 8.5 - 10.5 mg/dL [facility] Protein, Total 6.6 6.1 - 8.0 gm/dL [facility] Albumin 3.6 3.2 - 5.2 gm/dL [facility] Aspartate Aminotransferase 16 0 - 30 unit/L [facility] Alanine Aminotransferase 13 0 - 30 unit/L [facility] Alkaline Phosphatase 79 40 - 104 unit/L [facility] Bilirubin, Total 0.5 0.2 - 1.3 mg/dL [facility] Est Glomerular Filtration Rate 70 >=60 mL/min/1. 73 m?? [facility] Comment: The eGFR was calculated using the CKD-EPI equation. As with all creatinine based estimates of kidney function, eGFR values calculated with the CKD-EPI equation are not accurate in patients with acute kidney failure, extremes of body mass or the acutely ill. [email or web address]/[email or web address]nkf eGFR 82 >=60 mL/min/1. 73 m?? [facility] Comment: The eGFR was calculated using the CKD-EPI equation. As with all creatinine based estimates of kidney function, eGFR values calculated with the CKD-EPI equation are not accurate in patients with acute kidney failure, extremes of body mass or the acutely ill. [email or web address]://MiniVax/[email or web address] Blood specimen (specimen) 04/06/2019 1:58 PM EDT 04/06/2019 2:11 PM EDT Narrative Resulting Agency Comment Spec In Lab Dom Zeng MD CHEMISTRY ORDERA BLES [facility] [place] [address] documented in this encounter Visit Diagnoses Diagnosis Pancytopenia Other pancytopenia Anemia, unspecified type Enlargement of spleen Splenomegaly Iron deficiency anemia, unspecified iron deficiency anemia type MGUS (monoclonal gammopathy of unknown significance) Monoclonal paraproteinemia Hepatic cirrhosis, unspecified hepatic cirrhosis type, unspecified whether ascites present documented in this encounter Care Teams Special Education Preschool Teacher Relationship Specialty Start Date End Date Alma Farfan MD [address] [place] [address] PCP - General Family Medicine 04/06/19 11/04/24 documented as of this encounter
--- OUTSIDE RECORDS SUMMARY | 2024-11-22 17:33 | XMS_ITS | Encounter Summary ---
[place] [address] Care Team Providers Care Oil Treater Name Role Phone Lilliana Goyal MD, Jayden Leonardo Primary Care Provider + Reason for Visit * Reason Onset Date Comments Prior Authorization 02/22/2018 Encounter Details Date Type Department Care Team (Late st Contact Info) Description 02/22/2018 Tele[place] [phone] Carla Srinivasan CMA Prior Authorization Social History Tobacco Use Types Packs/Day Years [...] encounter Miscellaneous Notes * Telephone Encounter - Carla Srinivasan CMA - 02/22/2018 11:46 AM EDT Medication Prior Authorization 4L Gastroenterology / [place] [address] Subscriber Insurance: opt[employer] rx ? Physician: Ijeoma Smith ? Return ?? Pharmacy: [facility] ? Medication Requested: Xifaxan ?? Strength: 550 mg Frequency: BID ?? Disp.: 60 Refills: 3 ?? Currently taking: yes ?? Diagnosis for this medication: hepatic encephalopathy ?? ICD-10 code: K72.90 ?? Prior medications trialed in this patient: lactulose ? Medication: Outcome/Adverse Reactions: ?? Decision: ?? Tracking number/Case number/Reference number: [id number] ?? Effective date: ?? Start: End: 03/06/2018 Request Reference Number: [id number]. XIFAXAN TAB 550MG is approved through 08/24/2018. For further questions, call . documented in this encounter Plan of Treatment Upcoming Encounters Date Type Department Care Team (Late st Contact Info) Description 11/29/2024 1:30 PM EST Appointment XRay at [address] [place] [address] Laurent Cabrera MD [facility] [place] [address] 11/29/2024 2:20 PM EST Office [place] [address] Laurent Cabrera MD [facility] [place] [address] documented as of this encounter Visit Diagnoses Not on filedocumented in this encounter Care Teams Oil Treater Relationship Specialty Start Date End Date Jayden Tijerina Jr., MD [address] [place] [address] PCP - General Family Medicine 12/16/16 04/05/19 documented as of this encounter
--- OUTSIDE RECORDS SUMMARY | 2024-11-22 17:33 | XMS_ITS | Encounter Summary ---
Author Organization [facility] [address] [place] [address] Care Team Providers Care Shellfish Manager Name Role Phone Alma Farfan MD Primary Care Provider [phone] Encounter Details Date Type Department Care Team (Late st Contact Info) Description 04/23/2019 Telephone Hematology and Oncology at [facility] [place] [phone] Lion Pinto MD Social History Tobacco Use Types Packs/Day Years [...] encounter Miscellaneous Notes * Telephone Encounter - Lion Metzger MD - 04/23/2019 8:17 PM EDT Received page from the patient at 8.10pm. She noted that she just returned home and noticed that her pants were wet and blood was running down her leg. She was worried as this was more than the mild bleeding she was told about. She tried lying down on a rolled up towel for 30 mins but continues to bleed. I explained to the patient that sometimes patients with low platelet count can bleed more than anticipated. I recommended that she lie down prone and have a family member apply firm pressure at the biopsy site for at least 20 min. Also recommended trying to apply ice to the area as that can help with clotting. I advised her to call back if the bleeding did not stop. documented in this encounter Plan of Treatment Upcoming Encounters Date Type Department Care Team (Late st Contact Info) Description 11/29/2024 1:30 PM EST Appointment XRay at [address] [place] [address] Laurent Cabrera MD [facility] [place] [address] 11/29/2024 2:20 PM EST Office Visit Orthopaedics at [facility] [place] [address] Laurent Cabrera MD [facility] [place] [address] documented as of this encounter Visit Diagnoses Not on filedocumented in this encounter Care Teams Shellfish Manager Relationship Specialty Start Date End Date Alma Farfan MD [address] [place] [phone] PCP - General Family Medicine 04/06/19 11/04/24 documented as of this encounter
--- OUTSIDE RECORDS SUMMARY | 2024-11-22 17:33 | XMS_ITS | Encounter Summary ---
Author Organization [facility] [place] [address] Care Team Providers Care Machinist Automotive Name Role Phone Alma Farfan MD Primary Care Provider [phone] Encounter Details Date Type Department Care Team (Late st Contact Info) Description 04/23/2019 3:00 PM EDT - 04/23/2019 4:00 PM EDT Surgery [facility] [place] [address] Dom Zeng MD ([facility] MS[facility]) BONE MARROW BIOPSY AND ASPIRATION; DIAGNOSTIC (WRVU 1.44) Social History Tobacco Use Types Packs/Day Years [...] PM ED T Respiratory Rate 12 04/23/2019 3:55 PM EDT Oxygen Saturation 93% 04/23/2019 4:00 PM EDT Inhaled Oxygen Concentration - - [...] 5pm or on a weekend: Call the [facility] barrel lathe operator inside at and ask for the physician deposition operator covering for your doctor. Instructions following sedation [...] drainage occurs, please contact your [facility] [address] ??? [place] [address] ??? [phone] ??? [email or web address] [employer] ??? [facility] ??? [facility] ??? [facility] documented in this encounter Medications at Time [...] procedure. Discharge to: Home with her step sharon Franco. MERE Simmons documented in this encounter [...] from procedure site, site monitored by this law reporter, no drainage noted. Dressing loose, new dressing applied, patients step-daughter driver's license reviewing officer visualized. Patient and driveradvised to monitor after leaving [facility], if sxs of bleeding occur, advised to apply thumb or towel pressure, if drainage does not stop, go to closest Emergency Room. Contact provider with all concerns, both parties verbalized understanding. Patient discharge instructions and medications reviewed with patient and driver's license reviewing officer prior to procedure, allquestions answered, all verbalized understanding. Written i nstructions sent home with patient in purse. documented in this encounter Plan of Treatment Upcoming Encounters Date Type Department Care Team (Late st Contact Info) Description 11/29/2024 1:30 PM EST Appointment XRay at [address] [place] [address] Laurent Cabrera MD [facility] [place] [address] 11/29/2024 2:20 PM EST Office Visit Orthopaedics at [facility] [place] [address] Laurent Cabrera MD [facility] [address] [place] [address] documented as of this encounter Procedures Procedure Name Priority Date/Time Associated Diagnosis Comments IMMUNOPHENOTYPING FLOW CYTOMETRY (BLOOD) Routine 04/23/2019 3:51 PM EDT MYELOID SEQ PANEL Routine 04/23/2019 3:5 1 PM EDT BONE MARROW FINAL REPORT Routine 019 3:51 PM EDT IRON STAIN, BONE MARROW Routine 04/23/20 19 3:51 PM EDT BONE MARROW PANEL ([facility]) Routine 04/23/2019 3:51 PM EDT ([facility] BONE MARROW BIOPSY AND ASPIRATION; DIAGNOSTIC (WRVU 1.44) 04/23/2019 3:25 PM EDT pancytopenia HEMOGRAM Routine 04/23/2019 2:30 PM EDT DIFFERENTIAL, AUTOMATED Routine 04/23/20 19 2:30 PM EDT CBC (WITH DIFF) Routine 04/23/2019 2:30 PM EDT KARYOTYPING, BONE MARROW [facility] Routine 04/23/2019 9:03 AM EDT documented in this encounter Results * Bone Marrow Final Report (04/23/2019 3:51 PM EDT) Final Diagnosis [id number] ? Location: [facility] The signing pathologist has (i) examined the [...] NO variants not detected Cytogenetic analysis: Karyotyping, [facility]: ??46,XX[20]. DISCUSSION: Flow cytometry immunophenotype analysis [...] results from all diagnostic studies performed at [facility] on this particular biopsy specimen. ??Please refer to the primary report(s) of each individual study for complete text and additional study details. . Electronically signed by: ??Pam Keen MD Verified: ??05/11/2019 ?Hematopathologist Performed at: ??-[facility] Dept. of Pathology, [place], [place] ? Bone Marrow Final DIAGNOSIS Bone [...] Keen MD Verified: ??04/25/2019 ?Hematopathologist Performed at: ??-[facility] Dept. of Pathology, [place], [place] DISCUSSION Flow cytometry immunophenotype analysis was [...] and trabecular bone and hematopoietic tissue in material man arrangement. The bone marrow is normocellular for [...] Keen MD Verified: ??04/24/2019 ?Hematopathologist Performed at: ??-[facility] Dept. of Pathology, [place], [place] . DISCUSSION An increased blast population [...] by the Clinical Flow Cytometry Laboratory at [facility]. It has not been cleared or approved [...] high complexity clinical laboratory testing. SPECIMEN PROCESSING [id number] Cells for immunophenotypic analysis were derived from [...] woman with pancytopenia. 05/11/2019 1:03 PM EDT [facility] BONE MARROW STRUCTURE / Unknown 04/23/2019 3:51 PM EDT 04/23/2019 3:51 PM EDT Dom Zeng MD PATHOLOGY/CYTOLO GY ORDERABLES Performing Organization Address [facility] Co de Phone Number [facility] [place] [address] * Myeloid Seq Panel (04/23/2019 3:51 PM EDT) Bone marrow specimen (specimen) 04/23/2019 3:51 PM EDT 04/24/2019 7:59 AM EDT Narrative Resulting Agency Comment Spec In Lab Dom Zeng MD CHEMISTRY ORDERA BLES Performing Organization Address [facility] Co de Phone Number [facility] [place] [address] * Immunophenotyping Flow Cytometry (04/23/2019 3:51 PM EDT) Immunophenotyping Flow See Comment [facility] Comment: When completed by the Pathologist, the Flow Cytometry Report ([id number]) will display under the Pathology Results section within [facility]. Bone marrow specimen (specimen) 04/23/2019 3:51 PM EDT 04/23/2019 4:31 PM EDT Narrative Resulting Agency Comment Spec In Lab Dom Zeng MD HEMATOLOGY ORDER YANN Performing Organization Address [facility] [place] [address] * Iron Stain, Bone Marrow (04/23/2019 3:51 PM EDT) Bone Marrow Iron Stain See Comment [facility] Comment:See Bone Marrow Repo rt [id number] under Hematopathology Reports. Bone marrow specimen (specimen) 04/23/2019 3:51 PM EDT 04/23/2019 4:31 PM EDT Narrative Resulting Agency Comment Spec In Lab Dom Zeng MD HEMATOLOGY ORDER YANN [facility] [place] [address] * (ABNORMAL) Differential, Automated (04/23/2019 2:30 PM EDT) Neutrophil % 71.3 % [facility] Neutrophil Absolute 0.72(L) 1.70 - 6.10 x10(3)/ L [facility] Lymph % 16.8 % [facility] Lymphocytes Abs 0.2(L) 0.9 - 3.2 x10(3)/ L [facility] Monocyte % 9.9 % [facility] Monocyte Abs 0.1(L) 0.3 - 0.9 x10(3)/ L [facility] Eos % 2.0 % [facility] Eosinophils Abs 0.0 0.0 - 0.4 x10(3)/ L [facility] Basophil % 0.0 % [facility] Baso Absolute 0.0 0.0 - 0.1 x10(3)/ L [facility] Immature Gran % 0.00 % [facility] Comment: Immature granulocytes(IG's)percentage and absolute count will include metamyelocytes, myelocytes, and promyelocytes. Blood smears from CBCs yielding IG's will be scanned manually for concordance. If this scan disagrees with the automated IG or if promyelocytes are noted, a manual differential will be performed. Immature Gran Absolute 0.00 0.00 - 0.04 x10(3)/mc L [facility] Blood specimen (specimen) 04/23/2019 2:30 PM EDT 04/23/2019 3:05 PM EDT Narrative Resulting Agency Comment Spec In Lab Dom Zeng MD HEMATOLOGY ORDER YANN [facility] [place] [address] * (ABNORMAL) Hemogram (04/23/2019 2:30 PM EDT) White Blood Cell 1.0(Criti gee) 4.0 - 9.5 x10(3)/mc L [facility] Comment: This result has been called to KAEL JAEGER by Celena Huggins on 04 23 2019 at 1535, and has been read back. Red Blood Cell 3.96(L) 4.00 - 5.21 x10(6)/mc L [facility] Hemoglobin 11.0(L) 11.7 - 15.5 gm/dL [facility] Hematocrit 34.8(L) 35.7 - 45.8 % [facility] Mean Cell Volume 87.9 82.6 - 94.4 fL [facility] Mean Cell Hemoglobin 27.8 27.1 - 32.0 pg [facility] Mean Cell Hemoglobin Concentration 31.6(L) 31.7 - 35.0 gm/dL [facility] Platelet 34(L) 145 - 357 x10(3)/mc L [facility] RDW Standard Deviation 51.0(H) 37.0 - 46.0 fL [facility] RDW coefficient of variation 15.9(H) 11.5 - 14.1 % [facility] Mean Platelet Volume 10.0 7.6 - 12.9 fL [facility] NRBC% auto 0.0 % [facility] NRBC Absolute 0.000 0.000 - 0.000 x10(3)/mc L [facility] Blood specimen (specimen) 04/23/2019 2:30 PM EDT 04/23/2019 3:05 PM EDT Narrative Resulting Agency Comment Spec In Lab Dom Zeng MD HEMATOLOGY ORDER YANN [facility] [place] [address] * Karyotyping, Bone Marrow (04/23/2019 9:03 AM [...] ? Jessa Izaguirre M.D. ?Test Performed by: ?[facility] ?[address] [place] [address] [facility] Bone marrow specimen (specimen) HLX Bone Marrow / Unknown 04/23/2019 9:03 AM EDT 04/24/2019 9:03 AM EDT Dom Zeng MD CHEMISTRY BRADEN SMITH [facility] [place] [address] documented in this encounter Visit Diagnoses Not on filedocumented in this encounter Administered Medications Inactive Administered Medications - up to 3 most recent administrations Medication Order MAR Action Action Date Dose Rate Site fentaNYL 50 mcg/mL multi-dose injection 25-50 mcg, Intravenous, EVERY 5 MIN PRN, Starting on Tue04/23/19 at 1413, Until Tue04/23/19 at 1646, Pain, Hold for respiratory rate less than 8 breaths per minute. (maximum dose 200 mcg), Intra-Operative (Intra-Procedure), Routine Given 04/23/2019 3:49 PM EDT 25 mcg Given 04/23/2019 3:39 PM EDT 25 mcg Given 04/23/2019 3:32 PM EDT 25 mcg ipratropium-albuterol (DUONEB) 0.5 mg-3 mg(2.5 mg base)/3 mL nebulizer solution 3 mL 3 mL, Nebulization, ONCE, 1 dose, On Tue04/23/19 at 1515, Routine Given 04/23/2019 2:55 PM EDT 3 mLs ipratropium-albuterol (DUONEB) 0.5 mg-3 mg(2.5 mg base)/3 mL nebulizer solution 1 dose, Starting on Tue04/23/19 at 1452, Until Tue04/23/19 at 1455, Aundrea Fountain: cabinet override midazolam (PF) (VERSED) multi-dose injection 0.5-2 mg 0.5-2 mg, Intravenous, EVERY 5 MIN PRN, Starting on Tue04/23/19 at 1413, Until Tue04/23/19 at 1646, Sleep, Anxiety, Hold for delirium/agitation. (Maximum dose 5 mg)., Intra-Operative (Intra-Procedure), Routine Given 04/23/2019 3:44 PM EDT 1 mg Given 04/23/2019 3:36 PM EDT 1 mg Given 04/23/2019 3:33 PM EDT 0.5 mg documented in this encounter [...] Aundrea Fountain RN)1532 (Given - Provider: Aundrea Foutnain RN)1539 (Given - Provider: Aundrea Fountain RN)1549 (Given - Provider: Aundrea Fountain, RN) midazolam (PF) (VERSED) multi-dose injection 0.5-2 mg (CANCELED) 0.5-2 mg, Intravenous, EVERY 5 MIN PRN, Starting on Tue04/23/19 at 1413, Until Tue04/23/19 at 1646, Sleep, Anxiety, Hold for delirium/agitation. (Maximum dose 5 mg)., Intra-Operative (Intra-Procedure), Routine 1527 (Given - Provid er: Aundrea Fountain RN)1533 (Given - Provider: Aundrea Fountain, RN)1536 (Given - Provider: Aundrea Fountain, RN)1544 (Given - Provider: Aundrea Fountain, RN) No Frequency Medication Order 04/21/2019 04/22/2019 04/23/2019 heparin, porcine (PF) 1,000 unit/mL injection 1 dose, Starting on Tue04/23/19 at 1416, Until Tue04/23/19 at 1857, Ruth Whittington: cabinet override 1430 (Due) documented in this encounter Care Teams Machinist Automotive Relationship Specialty Start Date End Date Alma Farfan MD [address] [place] [phone] PCP - General Family Medicine 04/06/19 11/04/24 documented as of this encounter
--- OUTSIDE RECORDS SUMMARY | 2024-11-22 17:33 | XMS_ITS | Encounter Summary ---
Author Organization [facility] [place] [address] [place] [address] Care Team Providers Care Tuck Pointer Helper Name Role Phone Alam Farfan MD Primary Care Provider [phone] Encounter Details Date Type Department Care Team (Late st Contact Info) Description 07/10/2019 Telephone Hematology and Oncology at [facility] [place] [phone] Litzy Hdz, RN Social History Tobacco Use Types Packs/Day [...] encounter Miscellaneous Notes * Telephone Encounter - Litzy Hdz RN - 07/10/2019 11:48 AM EDT Message received from Dr. Zeng: Please advise, most recent iron studies I see are 03/2019. ??Per your 04/2019 note Iron deficiency anemia??- Tara continues to take daily oral iron and recent tests show adequate iron stores. could just let her know that her iron stores were normal when we checked them. ??Probably best to continue her daily iron. T/C RN called patient reviewed results and advised her to continue to her oral iron supplements. Patient informed this RN of recent endoscopy results findings 06/19/19 , ulcers and irritated esophagus, per patient, Dr. Smith recommended Iron infusions. Repeat Labs scheduled ~ 07/[address] Zeng's request, will treat as accordingly per lab values. Patient is in agreement with this plan. documented in this encounter Plan of Treatment Upcoming Encounters Date Type Department Care Team (Late st Contact Info) Description 11/29/2024 1:30 PM EST Appointment XRay at [address] [place] [address] Laurent Cabrera MD [facility] [place] [address] 11/29/2024 2:20 PM EST Office Visit Orthopaedics at [facility] [place] [address] Laurent Cabrera MD [facility] [place] [address] documented as of this encounter Visit Diagnoses Not on filedocumented in this encounter Care Teams Tuck Pointer Helper Relationship Specialty Start Date End Date Alma Farfan MD [address] [place] [phone] PCP - General Family Medicine 04/06/19 11/04/24 documented as of this encounter
--- OUTSIDE RECORDS SUMMARY | 2024-11-22 17:33 | XMS_ITS | Encounter Summary ---
Author Organization [facility] [place] [address] [place] [address] Care Team Providers Care Director Industrial Nursing Name Role Phone Alma Farfan MD Primary Care Provider [phone] Reason for Visit * Reason Onset Date Comments Medication Refill 06/20/2019 Encounter Details Date Type Department Care Team (Late st Contact Info) Description 06/20/2019 Refill Gastroenterology at [facility] [place] [phone] Ijeoma Smith MD [facility] [place] [address] Acute gastric ulcer without hemorrhage or perforation; Reflux esophagitis Social History Tobacco Use Types Packs/Day Years [...] 11/29/2024 1:30 PM EST Appointment XRay at [address] [place] [phone] Laurent Cabrera MD [facility] [address] 11/29/2024 2:20 PM EST Office [place] [address] Laurent Cabrera MD [facility] [place] [address] documented as of this encounter Visit Diagnoses Diagnosis Acute gastric ulcer without hemorrhage or perforation Acute gastric ulcer without mention of hemorrhage, perforation, or obstruction Reflux esophagitis documented in this encounter Care Teams Director Industrial Nursing Relationship Specialty Start Date End Date Alma Farfan MD [address] [place] [phone] PCP - General Family Medicine 04/06/19 11/04/24 documented as of this encounter
--- OUTSIDE RECORDS SUMMARY | 2024-11-22 17:33 | XMS_ITS | Encounter Summary ---
Author Organization [facility]ly [facility] [place] [address] Care Team Providers Care Cigar Packer And Grader Name Role Phone Lilliana Goyal MD, Jayden Leonardo Primary Care Provider + Encounter Details Date Type Department Care Team (Late st Contact Info) Description 03/27/2019 Telephone Gastroenterology at [facility] [place] [phone] Paige Mendenhall Social History Tobacco Use Types Packs/Day Years [...] Miscellaneous Notes * Telephone Encounter - Paige Mendenhall - 03/27/2019 3:[address] Smith- Pt called in wondering if she should have any imaging or labs done before her apt with you on the documented in this encounter Plan of Treatment Upcoming Encounters Date Type Department Care Team (Late st Contact Info) Description 11/29/2024 1:30 PM EST Appointment XRay at [address] [place] [address] Laurent Cabrera MD [facility] [place] [address] 11/29/2024 2:20 PM EST Office Visit [place] [address] Laurent Cabrera MD [facility] [place] [address] documented as of this encounter Visit Diagnoses Not on filedocumented in this encounter Care Teams Cigar Packer And Grader Relationship Specialty Start Date End Date Jayden Tijerina Jr., MD [address] [place] [phone] PCP - General Family Medicine 12/16/16 04/05/19 documented as of this encounter
--- OUTSIDE RECORDS SUMMARY | 2024-11-22 17:33 | XMS_ITS | Encounter Summary ---
Author Organization [facility] [address] [place] [address] Care Team Providers Care Operations Staff Specialist Security Name Role Phone Alma Farfan MD Primary Care Provider [phone] Encounter Details Date Type Department Care Team (Late st Contact Info) Description 07/10/2019 Telephone Hematology [place] [phone] Dom Zeng MD Social History Tobacco Use Types Packs/Day [...] 1:30 PM EST Appointment XRay at [address] [place] [phone] Laurent Cabrera MD [facility] [place] [address] 11/29/2024 2:20 PM EST Office Visit [place] [phone] Laurent Cabrera MD [facility] [place] [address] documented as of this encounter Visit Diagnoses Not on filedocumented in this encounter Care Teams Operations Staff Specialist Security Relationship Specialty Start Date End Date Alma Farfan MD [address] [place] [phone] PCP - General Family Medicine 04/06/19 11/04/24 documented as of this encounter
--- OUTSIDE RECORDS SUMMARY | 2024-11-22 17:33 | XMS_ITS | Encounter Summary ---
Author Organization [facility] [place] [address] [place] [address] Care Team Providers Care Banking Consultant Name Role Phone Alma Farfan MD Primary Care Provider [phone] Reason for Visit * Reason Comments Follow-up Encounter Details Date Type Department Care Team (Late st Contact Info) Description 05/04/2019 3:30 PM EDT Office Visit [place] [address] Dom Zeng MD Stearns, Diane M, RECORDS CUSTODIAN [facility] [place] [address] Pancytopenia (Primary Dx); Anemia, unspecified type; Thrombocytopenia Social History Tobacco [...] Sign Reading Time Taken Comments Blood Pressure 120/65 05/04/2019 3:45 PM EDT Pulse 66 05/04/2019 3:45 PM EDT Temperature 36.1 ??C (97 ??F) 05/04/2019 3:45 PM EDT Respiratory Rate 17 05/04/2019 3:45 PM EDT Oxygen Saturation 97% 05/04/2019 3:45 PM EDT Inhaled Oxygen Concentration - - Weight 97.1 kg (214 lb) 05/04/2019 3:45 PM EDT Height 161.4 cm (5' 3.54) 05/04/2019 3:45 PM ED T Body Mass Index 37.26 05/04/2019 3:45 PM EDT documented in this encounter Progress Notes * Dom Zeng MD - 05/04/2019 3:30 PM EDT HEMATOLOGY/BMT CONSULTATION VISIT NOTE CHIEF COMPLAINT: Tara Yun is a 58 y.o. female originally referred by Alma Farfan [...] in 20/20 metaphases Myeloid Gene Panel - pending ?? PREVIOUS HISTORY OF PRESENT ILLNESS (07/2017) Tara Yun is referred back for pancytopenia after being seen in her local ER on 07/26 for syncope and found to be orthostatic in the [place] ER. From Dr. Euceda's phone note from [...] sx have not recurred. Now living in [place], [place]. Has had episodes of hypoglycemia that [...] concerned she might have leukemia. INTERIM HPI Tara says she has not felt well. After her BM Bx she bled that night and had to keep pressure onall night. By the next day it had stopped. Has had some chills and felt feverish a few times in thelast week. Temp was up to 100.6 this week once but has otherwise felt OK. SH No changes FH No changes REVIEW [...] to Visit Medication Sig Dispense Refill ??? UNABLE TO FIND Iron infusion ??? [...] Brother PHYSICAL EXAM VITAL SIGNS: Blood pressure 120/65, pulse 66, temperature 36.1 ??C (97 ??F), temperature source Temporal, resp. rate 17, height 161.4 cm (5' 3.54), weight 97.1 kg (214 lb), SpO2 97 %. GENERAL: Tara Yun is a well-appearing 58 y.o. female in no acute distress. Full exam not performed today LABORATORY No results found for this or any previous visit (from the past 72 hour(s)). RADIOLOGY - None ASSESSMENT & PLANS 1. Pancytopenia - Given normal BM Bx in 2012, anemia has been attributed to iron deficiency - now resolved and hypersplenism. --Despite her low counts and recent thorough evaluation there is no definitive cause identified from today's labs or her BM Bx. 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 ?? 2. 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 ?? 3. Iron deficiency anemia - Tara continues to take daily oral iron and recent tests show adequate iron stores. ?? 5. Counseling - we reviewed the results of Tara's BM Bx and that everything is normal so far with only the myeloid gene mutation panel still pending. Gvien the results of her testing I told her that it was very unlikely now that she had an underlying hematologic disorder such as MDS, lymphoma orleukemia and that her enlarged spleen was the likely cause of her low counts. ?? 6. Follow-up - I will call Gena if her gene panel shows any mutations that might explain her lowcounts. Otherwise we will see her back in 1 year. TOTAL TIME OF VISIT: 25 minutes TIME SPENT ON COUNSELING AND COORDINATION OF CARE: 20 minutes Dom Zeng MD Division of Hematology and Blood & Marrow Transplant [facility] documented in this encounter Plan of Treatment Upcoming Encounters Date Type Department Care Team (Late st Contact Info) Description 11/29/2024 1:30 PM EST Appointment XRay at [address] [place] [address] Laurent Cabrera MD [facility] [place] [address] 11/29/2024 2:20 PM EST Office Visit Orthopaedics at [facility] [place] [address] Laurent Cabrera MD [facility] [place] [address] documented as of this encounter Results * CRP, acute inflammation (08/16/2019 3:26 PM EDT) C-Reactive Protein 1.3 <=4.9 mg/L [facility] Blood specimen (specimen) 08/16/2019 3:26 PM EDT 08/16/2019 3:37 PM EDT Narrative Resulting Agency Comment Spec In Lab Dom Zeng MD CHEMISTRY ORDERA BLES Performing Organization Address City/[facility]/ZIP Co de Phone Number [facility] [place] [address] * Sedimentation rate (08/16/2019 3:26 PM EDT) Pathologist [facility] Sedimentation Rate Automated 7 0 - 20 mm/hr [facility] Blood specimen (specimen) 08/16/2019 3:26 PM EDT 08/16/2019 3:37 PM EDT Narrative Resulting Agency Comment Spec In Lab Dom Zeng MD HEMATOLOGY ORDER YANN Performing Organization Address [facility]/ZIP Co de Phone Number [facility] [place] [address] * (ABNORMAL) Iron and TIBC (08/16/2019 3:26 PM EDT) Iron 48 30 - 150 mcg/dL [facility] TIBC 242(L) 250 - 450 mcg/dL [facility] Iron Saturation 20 20 - 50 % [facility] Blood specimen (specimen) 08/16/2019 3:26 PM EDT 08/16/2019 3:37 PM EDT Narrative Resulting Agency Comment Spec In Lab Dom Zeng MD CHEMISTRY ORDERA BLES Performing Organization Address City/[facility]/ZIP Co de Phone Number [facility] [place] [address] * Ferritin (08/16/2019 3:26 PM EDT) [facility] Ferritin 266 30 - 400 ng/mL [facility] Comment: Pediatric reference ranges not verified at [facility], interpret with caution. Reference ranges for females greater than 50 years of age approach values for men, i.e., 30-400 ng/mL. Blood specimen (specimen) 08/16/2019 3:26 PM EDT 08/16/2019 3:37 PM EDT Narrative Resulting Agency Comment Spec In Lab Dom Zeng MD CHEMISTRY ORDERA BLES Performing Organization Address [facility] Co de Phone Number [facility] [place] [address] * Reticulocyte Count (08/16/2019 3:26 PM EDT) [facility] Reticulocyte % 1.5 0.7 - 2.5 % [facility] Retic Abs # 0.060 0.020 - 0.110 x10(6)/mcL [facility] Immature Retic% 5.6 0.5 - 13.8 % [facility] Reticulated Hgb 36.7 29.8 - 39.4 pg [facility] Blood specimen (specimen) 08/16/2019 3:26 PM EDT 08/16/2019 3:37 PM EDT Narrative Resulting Agency Comment Spec In Lab Dom Zeng MD HEMATOLOGY ORDER YANN Performing Organization Address City/[facility]/ZIP Co de Phone Number [facility] [place] [address] * Comprehensive metabolic panel (non-fasting) (08/16/2019 3:26 PM EDT) [facility] Glucose 87 65 - 199 mg/dL [facility] Comment:Diabetes: >=200 mg/d L plus symptoms Blood Urea Nitrogen 15 8 - 18 mg/dL [facility] Creatinine 0.74 0.70 - 1.20 mg/dL [facility] Sodium 140 135 - 145 mmol/L [facility] Potassium 4.0 3.5 - 5.0 mmol/L [facility] Comment: Please note: ??Patients with WBC >100,000 may have falsely elevated Potassium levels. ??For accurate Potassium quantification in these patients send serum separator tube (gold top) for subsequent determinations. ??Contact the Clinical Chemistry Laboratory if there are any questions. Chloride 105 98 - 107 mmol/L [facility] Carbon Dioxide 26 22 - 31 mmol/L [facility] Anion Gap 9 5 - 15 mmol/L [facility] Calcium 8.6 8.5 - 10.5 mg/dL [facility] Protein, Total 7.0 6.1 - 8.0 gm/dL [facility] Albumin 4.1 3.2 - 5.2 gm/dL [facility] Aspartate Aminotransferase 18 0 - 30 unit/L [facility] Alanine Aminotransferase 12 0 - 30 unit/L [facility] Alkaline Phosphatase 86 35 - 105 unit/L [facility] Bilirubin, Total 1.0 0.2 - 1.3 mg/dL [facility] Est Glomerular Filtration Rate 89 >=60 mL/min/1. 73 m?? [facility] Comment: The eGFR was calculated using the CKD-EPI equation. As with all creatinine based estimates of kidney function, eGFR values calculated with the CKD-EPI equation are not accurate in patients with acute kidney failure, extremes of body mass or the acutely ill. http://[employer]!/[facility] eGFR 103 >=60 mL/min/1. 73 m?? [facility] Comment: The eGFR was calculated using the CKD-EPI equation. As with all creatinine based estimates of kidney function, eGFR values calculated with the CKD-EPI equation are not accurate in patients with acute kidney failure, extremes of body mass or the acutely ill. http://[employer]!/[facility]AND[facility] Blood specimen (specimen) 08/16/2019 3:26 PM EDT 08/16/2019 3:37 PM EDT Narrative Resulting Agency Comment Spec In Lab Dom Zeng MD CHEMISTRY ORDERA BLES [facility] [place] [address] documented in this encounter Visit Diagnoses Diagnosis Pancytopenia- Primary Other pancytopenia Anemia, unspecified type Thrombocytopenia Thrombocytopenia, unspecified documented in this encounter Care Teams Banking Consultant Relationship Specialty Start Date End Date Alma Farfan MD [address] [place] [phone] PCP - General Family Medicine 04/06/19 11/04/24 documented as of this encounter
--- OUTSIDE RECORDS SUMMARY | 2024-11-22 17:33 | XMS_ITS | Encounter Summary ---
Author Organization [facility] [address] [place] [address] Care Team Providers Care Communication Studies Professor Name Role Phone Lilliana Goyal MD, Jayden Leonardo Primary Care Provider + Reason for Visit * Reason Onset Date Comments Medication Refill 05/11/2018 Encounter Details Date Type Department Care Team (Late st Contact Info) Description 05/11/2018 Refill [place] [phone] Carla Srinivasan CMA Chronic abdominal pain Social History Tobacco Use [...] Telephone Encounter - Carla Srinivasan CMA - 05/11/2018 8:22 AM EDT error documented in this encounter Plan of Treatment Upcoming Encounters Date Type Department Care Team (Late st Contact Info) Description 11/29/2024 1:30 PM EST Appointment XRay at [address] [place] [phone] Laurent Cabrera MD [facility] ORTHOPAEDIC [place] [address] 11/29/2024 2:20 PM EST Office [place] [address] Laurent Cabrera MD [facility] DR ORTHOPAEDIC [place] [address] documented as of this encounter Visit Diagnoses Diagnosis Chronic abdominal pain Abdominal pain, unspecified site documented in this encounter Care Teams Communication Studies Professor Relationship Specialty Start Date End Date Jayden Tijerina Jr., MD [address] [place] [phone] PCP - General Family Medicine 12/16/16 04/05/19 documented as of this encounter
--- OUTSIDE RECORDS SUMMARY | 2024-11-22 17:33 | XMS_ITS | Encounter Summary ---
Author Organization [facility] Address [facility] [address] [place] [address] Care Team Providers Care Loan Servicing Representative Name Role Phone Alma Farfan MD Primary Care Provider [phone] Encounter Details Date Type Department Care Team (Late st Contact Info) Description 06/19/2019 1:05 PM EDT Anesthesia [place] [address] Wild Santos MD [facility] DR [place] [address] Katherin Campos I, CLOUD SOFTWARE ENGINEER [address] [place] [address] Anesthesia Record Procedure Summary Procedure Name Responsible Anesthesiologist Anesthesia Start Time Anesthesia Stop Time EGD WITH BIOPSY (WRVU 2.39) (Trunk) Wild Santos MD 06/19/19 1305 06/19/19 1336 Events Date Time Event Comment 06/19/2019 1155 1305 AN Verify 1305 Start 1305 An Start Data 1313 An Induction 1313 Anesthesia Ready 1330 an stop data 1336 Recovery or ICU Handoff Janette ent care was transferred to the destination unit staff after review of the patient's medical history, current anesthetic/surgical status and plan, according to the Provider Handoff Checklist. 1336 Stop Meds Name Total IV Lidocaine 100 mg Propofol 240 mg lactated ringers infusion 300 mL * Agents Name O2 Air N2O * Blood No blood administrations on file. Lines, Drains, and Airways Type Details Placement Removal Incision 04/09/13; 1330; hip; 07/19/22 (LDA cleanup utility RA#[id number]); 1715 (LDA cleanup utility RA#[id number]) 04/09/13 1330 by Brenda Dubois RN 07/19/22 1715 by Thiago Billings (RETIRED) Peripheral IV Line - Single Lumen 06/19/19; 1204; metacarpal vein (top of hand), right; [id number] catheter system; 22 gauge, 1 in length; Michael Goldman RN; distraction, intradermal injection, tolerated well; 06/19/19; 1431 06/19/19 1204 by Terra Goldman RN 06/19/19 1431 by Julia Ta RN documented in this encounter Social History [...] on file documented as of this encounter OR Notes * Anesthesia Postprocedure Evaluation - Wild Santos MD - 06/19/2019 1:52 PM EDT Department of Anesthesiology Post-procedure Note Patient: Tara Yun Procedure Summary Date: 06/19/19 Room / Location: [facility] END[facility] 3 / [facility] Anesthesia Start: 1305 Anesthesia Stop: 1336 Procedure: EGD WITH BIOPSY (WRVU 2.49) (N/A Trunk) Diagnosis: (BECKI) ((pt has to do mirlax 2x daily for days prior)) ((consult)) Surgeon: Ijeoma Smith MD Responsible Provider: Wild Santos MD Anesthesia Type: MAC ASA Status: 3 All Anesthesia Providers: Anesthesiologist: Widl Santos MD CLOUD SOFTWARE ENGINEER: Katherin Campos CRNA Vitals Value Taken Time BP 126/79 06/19/2019 1:50 PM Temp Pulse Resp 16 06/19/2019 1:36 PM SpO2 95 % 06/19/2019 1:51 PM Pain Level 0 06/19/2019 1:36 PM Vitals shown include unvalidated device data. Patient Location: PACU/GAP Level of Consciousness: Awake and Alert Pain Management: Satisfactory Analgesia PONV: None Cardiovascular Status: At Baseline Respiratory Status: At Baseline Postoperative Fluid Status: Intravascular EUvolemia Possible Anesthetic Complications: NONE apparent at time of evaluation Final Primary Anesthesia Type: MAC (The anesthetic type performed was the same as planned.) Comments: * Anesthesia Preprocedure Evaluation - Wild Santos MD - 06/19/2019 11:53 AM EDT Images from the original note were not included. Pre-Anesthesia Evaluation for: Tara Yun a 58 y.o. female. Procedure(s): EGD, UPPER GI ENDOSCOPY Patient Active Problem List Diagnosis ??? Anemia, iron deficiency ??? Anemia ??? Mediastinal adenopathy ??? Hypovitaminosis D ??? Back pain ??? Asthma ??? Grief ??? Allergic rhinitis ??? Abdominal wall hernia ??? GERD (gastroesophageal reflux disease) ??? Left ureteral stone ??? Enlargement of spleen ??? Cirrhosis of liver ??? Obesity ??? Hyperlipidemia ??? Pancytopenia ??? Hypothyroidism ??? Depression with anxiety ??? Chronic viral hepatitis C ??? Current every day smoker ??? S/P hernia repair Past Medical History: Diagnosis Date ??? Arthritis ??? Asthma mild intermittent ??? Depression ??? GERD (gastroesophageal reflux disease) ??? Hepatitis C antibody test positive ??? Hyperlipidemia ??? Hypothyroid Past Surgical History: Procedure Laterality Date ??? APPENDECTOMY 11/16/96 ??? CHOLECYSTECTOMY 1992 ??? DENTAL SURGERY 03/25/1989 ??? GASTRIC FUNDOPLICATION 1992 ??? HIATAL HERNIA REPAIR 1992 ??? HYSTERECTOMY 1986 ??? KNEE SURGERY x 11 ??? OVARY REMOVAL 1987 ??? PRO BONE MARROW ASPIRATION W/BX THROUGH SAME INCISION/SITE 04/09/2013 ([facility]) BONE MARROW ASP PERFORMED W/BX THRU BX INCISION performed by Dom Zeng MD at [facility] OSC ??? PRO BONE MARROW BX, NEEDLE/TROCAR 04/09/2013 ([facility]) BONE MARROW,BIOPSY performed by Dom Zeng MD at [facility] ??? PRO COLONOSCOPY, DIAGNOSTIC 06/06/2013 COLONOSCOPY, DIAGNOSTIC performed by Juventino Estbean MD at [facility] ENDOSCOPY ? ? PRO DIAGNOSTIC BONE MARROW BIOPSIES & ASPIRATIONS N/A 04/23/2019 ([facility]) BONE MARROW BIOPSY AND ASPIRATION; DIAGNOSTIC performed by Dom Zeng MD [facility] ??? PRO UPPER GI ENDOSCOPY, BIOPSY N/A 12/08/2016 UPPER GASTROINTESTINAL ENDOSCOPY,WITH BIOPSY SINGLE OR MULTIPLE (WRVU 2.49) performed by Ijeoma Smith MD at [facility] END[facility]COPY ??? TOE SURGERY 2006 right ??? TONSILLECTOMY 1960 ??? TOTAL KNEE ARTHROPLASTY 2005 left ??? TOTAL KNEE ARTHROPLASTY 2004 right ??? VENTRAL HERNIA REPAIR 01/11/13 [place] Social History Tobacco Use ??? Smoking status: Current Some Day Smoker Packs/day: 0.50 Years: 30.00 Pack years: 15.00 Types: Cigarettes ??? Smokeless tobacco: Never Used ??? Tobacco comment: Working on cutting down. Substance Use Topics ??? Alcohol use: No Comment: No hx of heavy ETOH. 1 drink 2-3 times a year. Last ETOH x 1 month ago. Social History Substance and Sexual Activity Drug Use Not Currently Allergies Allergen Reactions ??? Ketorolac Shortness Of [...] Tylenol [Acetaminophen] Other (See Comments) Liver issues Medications: MAR and/or home medications have been reviewed. Physical Exam: Most Recent Vitals: 06/19/19 1151 BP: 115/54 Pulse: 77 SpO2: 95% There is no height or weight on file to calculate BMI. Airway Assessment: Mallampati: II TM distance: >3 FB Neck ROM: full Cardiovascular Assessment: Rhythm: regular Rate: normal cardiovascular exam normal Pulmonary Assessment: breath sounds clear to auscultation pulmonary exam normal Dental Assessment: Misc Assessment: IV access: Peripheral line Anesthesia Plan: ASA 3 MAC, with a(n) intravenous induction 58 yo woman for EGD Patient seen and examined; chart and labs reviewed PMH significant for Obesity GERD (controlled) Hypothyroidism Hepatitis C Cirrhosis Asthma Impression/Plan: ASA 3 MAC/Sedation; routine monitors Risks, plans, and procedures discussed with patient who understands and consents; questions answered Pancytopenia (plts 34K; wbc 1.0) Region - Other Informed Consent: Anesthetic plan and risks discussed with patient. Use of blood products discussed with patient who consented to blood products. Plan discussed with CLOUD SOFTWARE ENGINEER. PAT Clinic Note documented in this encounter Plan of Treatment Upcoming Encounters Date Type Department Care Team (Late st Contact Info) Description 11/29/2024 1:30 PM EST Appointment XRay at [address] [place] [address] Laurent Cabrera MD [facility] [place] [address] 11/29/2024 2:20 PM EST Office Visit Orthopaedics at [facility] [place] [place] [address] Laurent Cabrera MD [facility] [place] [address] documented as of this encounter Visit Diagnoses Not on filedocumented in this encounter Administered Medications Inactive Administered Medications - up to 3 most recent administrations Medication Order MAR Action Action Date Dose Rate Site lidocaine (PF) (XYLOCAINE) 100 mg/5 mL (2 %) injection PRN, Starting on Tue06/19/19 at 1313, Until Tue06/19/19 at 1336, Anesthesia Intra-op, Routine Given 06/19/2019 1:13 PM EDT 100 mg propofol (DIPRIVAN) 10 mg/mL bolus injection (Anesthesia) PRN, Starting on Tue06/19/19 at 1313, Until Tue06/19/19 at 1336, Anesthesia Intra-op Given 06/19/2019 1:21 PM EDT 20 mg Given 06/19/2019 1:19 PM EDT 20 mg Given 06/19/2019 1:17 PM EDT 50 mg documented in this encounter Care Teams Loan Servicing Representative Relationship Specialty Start Date End Date Alma Farfan MD [address] [place] [phone] PCP - General Family Medicine 04/06/19 11/04/24 documented as of this encounter
--- OUTSIDE RECORDS SUMMARY | 2024-11-22 17:33 | XMS_ITS | Encounter Summary ---
Author Organization [facility] [place] [place] [address] Care Team Providers Care Res Counselor Name Role Phone Alma Farfan MD Primary Care Provider [phone] Encounter Details Date Type Department Care Team (Late st Contact Info) Description 04/18/2019 Telephone Gastroenterology at [facility] [place] [phone] Cynthia Parikh Social History Tobacco Use Types Packs/Day Years [...] Miscellaneous Notes * Telephone Encounter - Cynthia Parikh - 04/18/2019 2:47 PM EDT COLO/EGD PATIENT SAFETY QUESTIONS anesthesia PRIOR COLO?: yes PRIOR EGD? : yes PROBLEMS?: - not totally clean PLAVIX, COUMADIN, PRADAXA? no PACEMAKER/DEFIBRILLATOR? : no DIABETIC? no ALLERGIC TO LATEX, EGGS, OR MEDS? All listed in chart THREE OR MORE ABDOMINAL SURGERIES? yes ANY PAST PROBLEMS WITH SEDATION OR ANESTHESIA? no SUPPLEMENTAL IRON?: iron infusions DAILY SUPPLEMENTAL O2 OR CPAP? no DOES PT TAKE RX PAIN MEDS? no HT: 5'5 WT: 214 AGE: DOES PT KNOW HE/SHE MUST HAVE A CAN CARRIER FOR AFTER PROCEDURE: yes documented in this encounter Plan of Treatment Upcoming Encounters Date Type Department Care Team (Late st Contact Info) Description 11/29/2024 1:30 PM EST Appointment XRay at [address] [place] [address] Laurent Cabrera MD [facility] [place] [address] 11/29/2024 2:20 PM EST Office Visit Orthopaedics at [facility] [place] [address] Laurent Cabrera MD [facility] [place] [address] documented as of this encounter Visit Diagnoses Not on filedocumented in this encounter Care Teams Res Counselor Relationship Specialty Start Date End Date Alma Farfan MD [address] [place] [phone] PCP - General Family Medicine 04/06/19 11/04/24 documented as of this encounter
--- OUTSIDE RECORDS SUMMARY | 2024-11-22 17:33 | XMS_ITS | Encounter Summary ---
Author Organization [facility] [place] [place] [address] Care Team Providers Care Electric Motor Repairman Name Role Phone Lilliana Goyal MD, Jayden Leonardo Primary Care Provider + Reason for Visit * Reason Onset Date Comments Medication Refill 03/14/2018 Encounter Details Date Type Department Care Team (Late Contact Info) Description 03/14/2018 Ref[place] [phone] Ijeoma Smith MD [facility] [address] Chronic abdominal pain Social History Tobacco Use [...] 1:30 PM EST Appointment XRay at [address] [place] [phone] Laurent Cabrera MD [facility] [place] [address] 11/29/2024 2:20 PM EST Office [place] [address] Laurent Cabrera MD [facility] [place] [address] documented as of this encounter Visit Diagnoses Diagnosis Chronic abdominal pain Abdominal pain, unspecified site documented in this encounter Care Teams Electric Motor Repairman Relationship Specialty Start Date End Date Jayden Tijerina Jr., MD [address] [place] [address] PCP - General Family Medicine 12/16/16 04/05/19 documented as of this encounter
--- OUTSIDE RECORDS SUMMARY | 2024-11-22 17:33 | XMS_ITS | Encounter Summary ---
Author Organization [facility] [place] [address] [place] [address] Care Team Providers Care Primary Care Nurse Name Role Phone Alma Farfan MD Primary Care Provider [phone] Encounter Details Date Type Department Care Team (Late st Contact Info) Description 08/16/2019 1:27 PM EDT Anesthesia Event [place] [address] Amilcar Alcantar MD [facility] [place] [address] Anastasia Yusuf CRNA [facility] [place] [address] Anesthesia Record Procedure Summary Procedure Name Responsible Anesthesiologist Anesthesia Start Time Anesthesia Stop Time EGD, UPPER GI ENDOSCOPY (WRVU 2.09) (Trunk) Amilcar Alcantar MD 08/16/19 1327 08/16/19 1401 Events Date Time Event Comment 08/16/2019 1247 1327 AN Verify 1327 Start 1327 An Start Data 1331 An Induction 1331 Anesthesia Ready 1400 an stop data 1401 Recovery or ICU Handoff Janette ent care was transferred to the destination unit staff after review of the patient's medical history, current anesthetic/surgical status and plan, according to the Provider Handoff Checklist. 1401 Stop Meds Name Total IV Lidocaine 60 mg Propofol 50 mg Propofol INF 276.74 mg Ketorolac 30 mg PHENYLephrine 80 mcg Lactated Ringers 500 mL * Agents Name O2 Auxiliary Flowmeter 1 * Blood No blood administrations on file. Lines, Drains, and Airways Type Details Placement Removal Incision 05/20/13; 1330; hip; 07/19/22 (LDA cleanup utility RA#[id number]); 1715 (LDA cleanup utility RA#[id number]) 04/09/13 1330 by Brenda Dubois RN 07/19/22 1715 by Thiago Billings (RETIRED) Peripheral IV Line - Single Lumen 08/16/19; 1239; median cubital vein (antecubital fossa), right; njkn-iod-rugupv catheter system; 20 gauge; Blayne Virk RN; intradermal injection, tolerated well, appears comfortable; 08/16/19; 1441 08/16/19 1239 by Dom Virk RN 08/16/19 1441 by Karol Telles RN documented in this encounter Social History [...] OR Notes * Anesthesia Postprocedure Evaluation - Amilcar Alcantar MD - 08/16/2019 2:40 PM EDT Department of Anesthesiology Post-procedure Note Patient: Tara Yun Procedure Summary Date: 08/16/19 Room / Location: [facility] ENDO 4 / [facility] ENDOSCOPY Anesthesia Start: 1327 Anesthesia Stop: 1401 Procedures: EGD, UPPER GI ENDOSCOPY (N/A Trunk) COLONOSCOPY, DIAGNOSTIC (N/A Trunk) Diagnosis: (She needs to be scheduled for??colonoscopy to exclude colonic cause??of iron deficiency, we can doa ) (??repeat EGD then to confirm gastric ulcer healing (in 8-10 weeks).) Surgeon: Ijeoma Smith MD Responsible Provider: Amilcar Alcantar MD Anesthesia Type: MAC ASA Status: 3 All Anesthesia Providers: Anesthesiologist: Amilcar Alcantar MD NANNY CAREGIVER: Paramjit, Anastasia E, NANNY CAREGIVER Vitals Value Taken Time BP 121/73 08/16/2019 2:30 PM Temp Pulse Resp SpO2 99 % 08/16/2019 2:35 PM Pain Level 5 08/16/2019 2:23 PM Vitals shown include unvalidated device data. Patient Location: PACU/[facility] Level of Consciousness: Awake and Alert Pain Management: Satisfactory Analgesia PONV: None Cardiovascular Status: At Baseline and Hemodynamically Stable Respiratory Status: At Baseline and Room Air Postoperative Fluid Status: Intravascular EUvolemia Possible Anesthetic Complications: NONE apparent at time of evaluation Final Primary Anesthesia Type: MAC (The anesthetic type performed was the same as planned.) Comments: AMILCAR ALCANTAR MD * Anesthesia Preprocedure Evaluation - Amilcar Alcantar MD - 08/16/2019 12:46 PM EDT Images from the original note were not included. Pre-Anesthesia Evaluation for: Tara Yun a 59 y.o. female. Procedure(s): EGD, UPPER GI ENDOSCOPY COLONOSCOPY, DIAGNOSTIC Patient Active Problem List Diagnosis ??? Anemia, [...] MARROW ASPIRATION W/BX THROUGH SAME INCISION/SITE 04/09/2013 ([facility] BONE MARROW ASP PERFORMED W/BX THRU BX INCISION performed by Dom Zeng MD at [facility] OSC ??? PRO BONE MARROW BX, NEEDLE/TROCAR 04/09/2013 ([facility] BONE MARROW,BIOPSY performed by Dom Zeng MD at [facility] OSC ??? PRO COLONOSCOPY, DIAGNOSTIC 06/06/2013 COLONOSCOPY, DIAGNOSTIC performed by Juventino Esteban MD at [facility] ENDOSCOPY ? ? PRO DIAGNOSTIC BONE MARROW BIOPSIES & ASPIRATIONS N/A 04/23/2019 ([facility]) BONE MARROW BIOPSY AND ASPIRATION; DIAGNOSTIC performed by Dom Zeng MD [facility] OSC ??? PRO UPPER GI ENDOSCOPY, BIOPSY N/A 12/08/2016 UPPER GASTROINTESTINAL ENDOSCOPY,WITH BIOPSY SINGLE OR MULTIPLE (WRVU 2.49) performed by Ijeoma Smith MD at [facility] ENDOSCOPY ??? PRO UPPER GI ENDOSCOPY, BIOPSY N/A 06/19/2019 EGD WITH BIOPSY (WRVU 2.49) performed by Ijeoma Smith MD at [facility] ENDOSCOPY ??? TOE SURGERY 2006 right ??? TONSILLECTOMY 1960 ??? TOTAL KNEE ARTHROPLASTY 2006 left ??? TOTAL KNEE ARTHROPLASTY 2004 right ??? VENTRAL HERNIA REPAIR 01/11/13 [place] Social History Tobacco Use ??? Smoking status: Current Every Day Smoker Packs/day: 0.25 Years: 30.00 Pack years: 7.50 Types: Cigarettes ??? Smokeless tobacco: Never Used ??? Tobacco comment: 3-4 ciagarettes/day Substance Use Topics ??? Alcohol use: No [...] been reviewed. Physical Exam: Most Recent Vitals: 08/16/19 1223 BP: 117/61 Pulse: 78 Resp: 18 Temp: 37 ??C (98.6 ??F) SpO2: 97% There is no height or weight on file to calculate BMI. Airway Assessment: Mallampati: III TM distance: >3 FB Neck ROM: full Cardiovascular Assessment: Pulmonary Assessment: Dental Assessment: Misc Assessment: IV access: Peripheral line Anesthesia Plan: ASA 3 MAC, with a(n) intravenous induction 59 y/o woman with a PMH of GERD, PUD, hypothyroidism, asthma here for EGD and colo. Tolerated MAC for prior EGD. Plan for MAC. Region - Other Informed Consent: Anesthetic plan and risks discussed with patient. Plan discussed with NANNY CAREGIVER. PAT Clinic Note documented in this encounter Plan of Treatment Upcoming Encounters Date Type Department Care Team (Late st Contact Info) Description 11/29/2024 1:30 PM EST Appointment XRay at [address] [place] [phone] Laurent Cabrera MD [facility] [place] [address] 11/29/2024 2:20 PM EST Office Visit Orthopaedics at [facility] [place] [address] Laurent Cabrera MD [facility] [place] [address] documented as of this encounter Visit Diagnoses Not on filedocumented in this encounter Administered Medications Inactive Administered Medications - up to 3 most recent administrations Medication Order MAR Action Action Date Dose Rate Site ketorolac (TORADOL) injection PRN, Starting on Kirsten 08/16/19 at 1327, Until Kirsten 08/16/19 at 1401, Anesthesia Intra-op, Routine Given 08/16/2019 1:27 PM EDT 30 mg lactated ringers infusion CONTINUOUS PRN, Starting on Kirsten 08/16/19 at 1327, Until Kirsten 08/16/19 at 1401, Anesthesia Intra-op New Bag 08/16/2019 1:27 PM EDT lidocaine (PF) (XYLOCAINE) 100 mg/5 mL (2 %) injection PRN, Starting on Kirsten 08/16/19 at 1331, Until Kirsten 08/16/19 at 1401, Anesthesia Intra-op, Routine Given 08/16/2019 1:31 PM EDT 60 mg PHENYLephrine in NS (PF) (JOSE-SYNEPHRINE) 0.8 mg/10 mL (80 mcg/mL) multi-dose injection Syrg PRN, Starting on Kirsten 08/16/19 at 1345, Until Kirsten 08/16/19 at 1401, Anesthesia Intra-op, Routine Given 08/16/2019 1:45 PM EDT 80 mcg propofol (DIPRIVAN) 10 mg/mL bolus injection (Anesthesia) PRN, Starting on Kirsten 08/16/19 at 1331, Until Kirsten 08/16/19 at 1401, Anesthesia Intra-op Given 08/16/2019 1:34 PM EDT 20 mg Given 08/16/2019 1:31 PM EDT 30 mg propofol (DIPRIVAN) infusion CONTINUOUS PRN, Starting on Kirsten 08/16/19 at 1332, Until Kirsten 08/16/19 at 1401, Anesthesia Intra-op, Routine Rate/Dose Change 08/16/2019 1:46 PM EDT 100 mcg/kg/min 58.3 mL/hr Rate/Dose Change 08/16/2019 1:36 PM EDT 125 mcg/kg/min 72. 8 mL/hr New Bag 08/16/2019 1:32 PM EDT 150 mcg/kg/min 87.4 mL/h r documented in this encounter Care Teams Primary Care Nurse Relationship Specialty Start Date End Date Alma Farfan MD [address] [place] [phone] PCP - General Family Medicine 04/06/19 11/04/24 documented as of this encounter
--- OUTSIDE RECORDS SUMMARY | 2024-11-22 17:33 | XMS_ITS | Encounter Summary ---
Author Organization [facility] [place] [address] [place] [address] Care Team Providers Care Auto Rental Clerk Name Role Phone Lilliana Goyal MD, Jayden Leonardo Primary Care Provider + Encounter Details Date Type Department Care Team (Late st Contact Info) Description 03/06/2018 Telephone Gastroenterology at [facility] [place] [phone] Sowmya Willis RN Social History Tobacco Use [...] encounter Miscellaneous Notes * Telephone Encounter - Sowmya Willis RN - 03/06/2018 2:11 PM EDT Pt states current dose of amitryptiline has become less effective; 40 mg daily. Asks if Dr. Smith can increase her dose. Main issue is falling asleep. Body aches more at night. Has appointment for April 07 with a new primary care. documented in this encounter Plan of Treatment Upcoming Encounters Date Type Department Care Team (Late Contact Info) Description 11/29/2024 1:30 PM EST Appointment XRay at [address] [place] [phone] [facility] [place] [address] 11/29/2024 2:20 PM EST Office [place] [phone] [facility] [place] [address] documented as of this encounter Visit Diagnoses Not on filedocumented in this encounter Care Teams Auto Rental Clerk Relationship Specialty Start Date End Date Jayden Tijerina Jr., MD [address] [place] [phone] PCP - General Family Medicine 12/16/16 04/05/19 documented as of this encounter
--- OUTSIDE RECORDS SUMMARY | 2024-11-22 17:34 | XMS_ITS | Encounter Summary ---
Author Organization [facility] [place] [address] [place] [address] Care Team Providers Care Roll Clamp Operator Name Role Phone Lilliana Goyal MD, Jayden Leonardo Primary Care Provider + Reason for Visit * Reason Onset Date Comments Advice Only 03/25/2017 Encounter Details Date Type Department Care Team (Late st Contact Info) Description 03/25/2017 Telephone Gastroenterology at [facility] [place] [phone] Lary Villalpando, restrike hammer operator Only Social History Tobacco Use Types Packs/Day [...] encounter Miscellaneous Notes * Telephone Encounter - Lary Villalpando RN - 03/25/2017 11:28 AM EDT Tara calling in request an appointment with Dr. Smith to discuss issue with pain under right breast. Pain has been ongoing for some time and intermittent. The frequency and intensity have increasedrecently. There are days when she is not bothered at all and days when she is 4-5/10 all day with escalation to 8- 9/10. When the pain escalates she rests or takes a hot shower. Patient describes areaunder right breast which she reports as being intermittently swollen or feeling full. States I don't know if it's related to a hernia repair I had a while ago or it it's related to my blood clot. Tara was admitted to [facility] in the beginning of January for similar pain along with fever. She states my white count is so low and so are my platelets. She has an upcoming consult appointment with a travel pt in [place]. Patient does not seen her PCP regularly. States he's always on vacation. She is trying to find a new PCP. Records request faxed to [facility]. documented in this encounter Plan of Treatment Upcoming Encounters Date Type Department Care Team (Late st Contact Info) Description 11/29/2024 1:30 PM EST Appointment XRay at [address] [place] [phone] Laurent Cabrera MD [facility] [place] [address] 11/29/2024 2:20 PM EST Office Visit Orthopaedics at [facility] [place] [address] Laurent Cabrera MD [facility] [place] [address] documented as of this encounter Visit Diagnoses Not on filedocumented in this encounter Care Teams Roll Clamp Operator Relationship Specialty Start Date End Date Jayden Tijerina Jr., MD [address] [place] [phone] PCP - General Family Medicine 12/16/16 04/05/19 documented as of this encounter
--- OUTSIDE RECORDS SUMMARY | 2024-11-22 17:34 | XMS_ITS | Encounter Summary ---
Author Organization [facility] Address [facility] [address] [place] [address] Care Team Providers Care Collection Specialist Name Role Phone Unavailable Primary Care Provider Unavailabl e Encounter Details Date Type Department Care Team (Latest Contact Info) Description 11/23/2016 4:00 PM EST Office Visit Gastroenterology at [facility] [place] [phone] Ijeoma Smith MD [facility] DR GASTROENTEROLOGY [place] [id number] Hypothyroidism due to acquired atrophy of thyroid; Pancytopenia Social History Tobacco Use Types Packs/Day Years [...] Sign Reading Time Taken Comments Blood Pressure 118/64 11/23/2016 3:51 PM EST Pulse 63 11/23/2016 3:51 PM EST Temperature - - Respiratory Rate - - Oxygen Saturation - - Inhaled Oxygen Concentration - - Weight 93 kg (205 lb) 11/23/2016 3:51 PM EST Height 162.6 cm (5' 4) 11/23/2016 3:51 PM EST Body Mass Index 35.19 11/23/2016 3:51 PM EST documented in this encounter Progress Notes * Ijeoma Smith MD - 11/23/2016 4:00 PM EST Gastroenterology and Hepatology Follow Up Note Patient: Tara Yun : 1960 Provider: Ijeoma Smith MD Problem List: 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 No varices. -Thrombocytopenia -Marked splenomegaly Last imaging: MRI 03/2014 no lesions; multiple non contrast ct's since then as well 2. HCV Ab positive, RNA negative 2012 [...] 04/09/13 20. Recurrent kidney stones 2014, stents . Hx of C. Diff 2014 Social History: X 20 years, . Then lived with a male partner for 18 years. Now single. 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 On Nov 13 she developed diarrhea, nausea, generalized abdominal discomfort. Since then she has had continued nausea, though no vomiting and loose stools. She has also devloped sores in her mouth on the gums and tip of tongue. She is alsohaving severe chest burning despite taking protonix. She has felt warm, though has not had a fever. CT in the ED showed: Lung bases: Clear ??Liver: The liver is normal in size. There is a slightly nodular contour suggesting underlying underlying cirrhosis. Bile ducts: There is mild intra and extrahepatic biliary ductal dilatation. This is more apparent than seen in the prior study likely due to intravenous contrast administration. It has not definitively changed. Gallbladder: Surgically absent Pancreas: Mildly atrophic Spleen: Markedly enlarged. The spleen measures approximately 19.9 cm in its longest dimension, not significantly changed from the prior examination. A small focal area of decreased attenuation in the lower pole has the appearance of a cyst and was present in the prior contrast-enhanced study dated 2012. No splenic infarction is seen. No splenic hemorrhage is seen. Adrenals: Normal Kidneys: Normal ?? Lymph Nodes: No enlarged lymph nodes. Bowel: Normal caliber. No adjacent inflammatory changes or wall thickening. Peritoneum and abdominal wall: Postoperative changes consistent with anterior abdominal wall hernia repair are again visible. Calcifications in the subcutaneous tissues in the right buttocks are most consistent with injection granulomas. Vasculature: The portal vein and splenic vein are markedly dilated. 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 ?? Urinary Bladder: Normal Bones: No suspicious lesions. ??IMPRESSION No splenic infarct or hemorrhage is detected. 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 Marked splenomegaly without change. She is also asking for usual med refills until she can establish with a primary care physician. Current Outpatient Prescriptions Medication Sig Dispense Refill ??? ondansetron (ZOFRAN, HYDROCHLORIDE,) 4 mg Tablet Take 1-2 tablets by mouth every 8 hours as needed for Nausea. 12 tablet 0 ??? fluticasone (FLOVENT) 110 mcg/actuation HFA Aerosol Inhaler Inhale 1 puff into the lungs 2 times daily. ??? fluticasone (FLONASE) 50 mcg/actuation [place], Suspension 1 spray 2 times daily. Reported on 11/09/2016 ??? lidocaine (LIDODERM) 5 % Adhesive Patch, Medicated Place 2 patches onto the skin daily. Apply 1patch onto the skin daily. (leave on for 12 hours and remove for 12 hours) ??? albuterol (PROAIR HFA) 90 mcg/actuation HFA Aerosol Inhaler Inhale 2 puffs into the lungs every6 hours as needed. Reported on 11/08/2016 ??? albuterol (PROVENTIL) 2.5 mg /3 mL (0.083 %) Solution for Nebulization Take 2.5 mg by nebulization every 6 hours as needed. Reported on 11/08/2016 ??? RIFAXIMIN 550 mg Tablet take 1 tablet by mouth twice a day 60 tablet 3 ??? ERGOCALCIFEROL, VITAMIN D2, (VITAMIN D ORAL) Take 1,000 Units by mouth daily. ??? lactulose (CHRONULAC) 10 gram/15 mL solution Take 30 mLs by mouth 3 times daily. ??? ALPRAZolam (XANAX) 0.5 mg tablet Take 0.5 mg by mouth nightly as needed. ??? levothyroxine (SYNTHROID) 25 mcg tablet Take 25 mcg by mouth daily. ??? pantoprazole (PROTONIX) 40 mg tablet Take 20 mg by mouth daily. ??? DOCUSATE SODIUM (COLACE ORAL) Take by mouth daily as needed. Reported on 11/08/2016 ??? FERROUS SULFATE, DRIED (IRON, DRIED, ORAL) Take 65 mg by mouth 3 times daily. ??? oxyCODONE (ROXICODONE) 5 mg Tablet Take 1-2 tablets by mouth every 4 hours as needed for Pain. No driving, no alcohol (Patient not taking: Reported on 11/23/2016) 10 tablet 0 No current facility-administered medications for this visit. Vitals: 11/23/16 1551 BP: 118/64 Pulse: 63 Weight: 93 kg (205 lb) Height: 162.6 cm (5' 4) Body mass index is 35.19 kg/(m^2). Lab Results Component Value Date NA 143 11/19/2016 K 3.7 11/19/2016 CL 103 11/19/2016 CO2 28 11/19/2016 BUN 9 11/19/2016 CREATININE 0.87 11/19/2016 GLUCOSE 92 11/19/2016 CALCIUM 8.6 11/19/2016 Lab Results Component Value Date ALT 29 11/19/2016 AST 26 11/19/2016 ALKPHOS 116 (H) 11/19/2016 BILITOT 0.7 11/19/2016 BILIDIR 0.2 11/19/2016 ALBUMIN 3.8 11/19/2016 PROT 6.5 11/19/2016 Lab Results Component Value Date WBC 1.4 (CRIT) 11/19/2016 HGB 11.4 (L) 11/19/2016 HCT 34.2 (L) 11/19/2016 MCV 85.9 11/19/2016 PLATELET 49 (L) 11/19/2016 Lab Results Component Value Date INR 1.3 (H) 11/17/2016 Lab Results Component Value Date TSH 1.91 11/19/2016 MELD=9 Exam: Looks well Chest- clear Heart- RRR, nl s1, s2 Abd- normal bs's, soft, non tender, +splenomegaly Assessment and Plan: 56 y.o. female with cirrhosis likely due to QUIROZ with marked hypersplenism causing pancytopenia con history of hepatic encephalopathy. Her current illness is suggestive of a viral illness. I am suspicious of possible HSV infection as this can cause oral and esophageal lesions (she has a chest burning pain and odynophagia). I think the splenic thrombus is an incidental finding related to abnormal flow through a very large/tortuous splenic vein. Recommendations: -Continue protonix, add carafate 1gm qid prn chest pain -Acyclovir 400mg tid for 10 days for possible HSV infection -EGD scheduled already on 12/08 for varices eval, will also use this to evaluate current odynophagia -Repeat CT abdomen to follow up splenic thrombus at time of EGD For chronic issues, I have refilled most of her usual medications. I have not filled alprazolam andsuggested instead that she try amitriptyline 10mg hs for sleep. This may also help chronic pain. After some discussion, I have also refilled oxycodone 5mg once daily for knee and back pain until she can establish with a primary care provider. Ijeoma Smith MD Section of Gastroenterology & Hepatology [address] [place] [phone] Greater than 50% of this 30 minute visit was spent in discussion. Cc: Loren Jiménez MD documented in this encounter Plan of Treatment Upcoming Encounters Date Type Department Care Team (Late st Contact Info) Description 11/29/2024 1:30 PM EST Appointment XRay at [address] [place] [phone] Laurent Cabrera MD [facility] [place] [address] 11/29/2024 2:20 PM EST Office [place] [phone] Laurent Cabrera MD [facility] [place] [address] documented as of this encounter Visit Diagnoses Diagnosis Hypothyroidism due to acquired atrophy of thyroid Pancytopenia Other pancytopenia documented in this encounter
--- OUTSIDE RECORDS SUMMARY | 2024-11-22 17:34 | XMS_ITS | Encounter Summary ---
Author Organization [facility] [place] [address] Care Team Providers Care Scheduling Manager Name Role Phone Lilliana Goyal MD, Jayden Leonardo Primary Care Provider + Reason for Visit * Reason Comments Hypoglycemia Encounter Details Date Type Department Care Team (Late st Contact Info) Description 12/16/2016 2:24 PM EST - 12/16/2016 7:00 PM EST Emergency [place] [id number] Espinoza Urias MD Syncope, unspecified syncope type Discharge Disposition: Home Social History Tobacco Use [...] Sign Reading Time Taken Comments Blood Pressure 115/71 12/16/2016 5:30 PM EST Pulse 75 12/16/2016 5:30 PM EST Temperature - - Respiratory Rate 19 12/16/2016 4:45 PM EST Oxygen Saturation 98% 12/16/2016 5:30 PM EST Inhaled Oxygen Concentration - - Weight - - Height - - Body Mass Index - - documented in this encounter Discharge Instructions * Discharge Instructions* Karol Elliott - 12/16/2016 6:51 PM EST Please return to the emergency department for any concerning symptoms such as further loss of consciousness, lightheadedness, inability to tolerate oral fluids, altered mental status. Take prescribed medications Zofran as needed and as directed for nausea. 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 You should also follow-up with her primary care provider the same timeframe for evaluation. * Attachments The following attachments cannot be sent through Care Everywhere. * NAUSEA AND VOMITING (ROMANIAN) documented in this encounter Medications at Time of Discharge Medication Sig Dispensed Refills Start Date End Date fluticasone (FLOVENT) 110 mcg/actuation HFA Aerosol Inhaler [...] 6 hours as needed. Reported on 11/08/2016 oxyCODONE (ROXICODONE) 5 mg Tablet Take 1 tablet by mouth every 4 hours as needed for Pain. 30 tablet 12/08/2016 08/31/2017 amitriptyline (ELAVIL) 10 mg Tablet Take 1 tablet by mouth nightly. 30 tablet 3 11/23/2016 03/04/2017 RIFAXIMIN 550 mg TabletIndications:Hepat ic encephalopathy take 1 tablet by mouth twice a day 60 tablet 3 01/20/2015 08/31/2017 ERGOCALCIFEROL, VITAMIN D2, (VITAMIN D ORAL) Take 1,000 Units by mouth daily. 04/18/2019 FERROUS SULFATE, DRIED (IRON, DRIED, ORAL)Indications:Pancyt openia Take 65 mg by mouth 3 times daily. 04/18/2019 documented as of this encounter ED Notes * Brian Goddard RN - 12/16/2016 6:09 PM EST Pt sts want to go home. No c/o nausea, sts 5/10 pain and it's okay. PO trial with apple sauce and juice. Pending disposition. * Karol Elliott - 12/16/2016 2:37 PM EST Tara Yun is an 56 y.o. female who presents to the ED with: Chief Complaint Patient presents with ??? Hypoglycemia I saw this patient 12/16/2016 at 1417. HPI Tara Yun is a 56 y.o. 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 Patient was coming from outpatient CT scan of the abdomen when this occurred. States that she became very lightheaded and fell, does not remember the specifics of the event. Tells me that she has been feeling nauseated with occasional episodes of nonbloody nonbilious emesis over the past several days, so has not been eating and drinking much. She is currently following with GI in workup of her portal and splenic vein thrombi, which is why she was having the CT performed today. States that she hassome slight neck pain since her fall, no other significant pain. Patient placed on backboard and collared, brought to the emergency department this way. Blood glucose on arrival shows hyperglycemia at 49. Despite this patient is now fully alert and mentating well on arrival. Review of Systems: Review of Systems 10 systems reviewed and negative other than reported in HPI. Patient Vitals for the past 24 hrs: BP Pulse Resp SpO2 12/16/16 1600 115/78 75 19 92 % 12/16/16 1545 118/78 78 11 96 % 12/16/16 1515 - 71 15 97 % 12/16/16 1500 - 73 17 93 % Physical Exam: Physical Exam Constitutional: She is oriented to person, place, and time. She appears well- developed and well-nourished. She appears distressed (boarded and collared on stretcher, slightly tearful). HENT: Head: Normocephalic and atraumatic. Mouth/Throat: Oropharynx is clear and moist. Eyes: EOM are normal. Pupils are equal, round, and reactive to light. Neck: Cervical collar in place. Cardiovascular: Normal rate, regular rhythm, normal heart sounds and intact distal pulses. Pulmonary/Chest: Effort normal and breath sounds normal. No respiratory distress. She has no wheezes. Abdominal: Soft. There is tenderness in the right upper quadrant, epigastric area and left upper quadrant. There is no rigidity, no rebound and no guarding. Mild ttp in the epigastric region Musculoskeletal: She exhibits no edema. Cervical back: She exhibits tenderness. Thoracic back: Normal. Lumbar back: Normal. Neurological: She is alert and oriented to person, place, and time. No cranial nerve deficit or sensory deficit. She exhibits normal muscle tone. Skin: Skin is warm and dry. Psychiatric: She has a normal mood and affect. Her behavior is normal. ED Course: - Patient was evaluated and discussed with Dr. Urias - Medications, allergies and past medical history reviewed - I reviewed the patients records: Briefly, as in history of present illness above. Was seen by GI on the third of this month. Had an EGD on the which appears to be overall unremarkable. - I reviewed the EKG: NSR, normal intervals, no ST elevations or depressions. - Medications and fluids administered: IV dextrose, IV normal saline, IV Zofran, IV Dilaudid, IV Ativan - I reviewed the patient's labwork: Improved leukopenia, no anemia, improved thrombocytopenia, minimal elevation INR 1.2, lites within normal limits, renal function unremarkable, LFTs and lipase within normal limits, ammonia within normal limits, troponin negative, hypoglycemic on arrival to 49, repeat blood glucose of 101. - I reviewed the CT images: CT of the head and neck showing no acute injury or fracture, also reviewed CT of the abdomen which was done prior to ED arrival which shows no change from prior, stable hepatic and splenic vein thrombi which are nonobstructing. - Patient feeling symptomatically improved after above medications. She is tolerating PO intake. Endorsing readiness for discharge to home. Assessment and Plan: Assessment: 56 y.o. female with syncopal episode, likely related to hypoglycemia in the setting of several days of poor PO intake. Blood glucose improved after IV dextrose, and has remained stable over period of observation. EKG unremarkable without evidence of arrhythmogenic factors, as are other labs. From the perspective of her liver disease and known thrombi, outpatient CT shows stable clot which has previously been managed as an outpatient and thus has no need for acute intervention at thetime. GI upset is improved after fluids, zofran and ativan, and patient able to tolerate oral intake. She tells me that she is feeling much better, and would like to be discharged. Vitally stable, kitty erating PO, ready for discharge to home. Return precautions were verbally discussed with the patient and written in discharge instructions, including fevers, shortness of breath, abdominal pain, nausea/vomiting, or other concerns. The patient expressed understanding that she could come back to the ED at any time and agreed to the follow-up plan. Plan: - Frequent small snacks at home. - Follow up with GI/PCP - Return precautions clearly discussed KAROL ELLIOTT MD 12/16/2016 *Note dictated with Connolly software, please excuse any errors in dictation. Karol Elliott MD Resident 12/17/16 1051 Associated attestation - Espinoza Urias MD - 12/17/2016 11:57 AM EST I have personally seen and examined the patient. I reviewed the patient with Dr. Elliott and agreewith the brown findings and plan. Patient sent here from radiology after a near syncopal event and a fall. She has been ill with nausea, headache. Abdominal discomfort for several days with poor po intake. Improved here with iv fluids, glucose and antiemetics. CT of head and neck unremarkable. CT abdearlier today had no new findings. Abdominal exam benign. Patient asked to be discharged after her treatment in the ED. documented in this encounter Miscellaneous Notes * ED Triage - Brian Goddard RN - 12/16/2016 2:21 PM EST Pt arrives on stretcher r/t code white, witnessed near syncopal event in hallway. Pt arrives in C-collar with neck pain on palpitation, GCS 14, lethargic. Was at CT for scan of Upper Abd r/t unrelieved pain, hx of cholestectomy and liver failure. documented in this encounter Plan of Treatment Upcoming Encounters Date Type Department Care Team (Late st Contact Info) Description 11/29/2024 1:30 PM EST Appointment XRay at [address] [place] [address] Laurent Cabrera MD [facility] [place] [address] 11/29/2024 2:20 PM EST Office Visit [place] [address] Laurent Cabrera MD [facility] [place] [address] documented as of this encounter Procedures Procedure Name Priority Date/Time Associated Diagnosis Comments POCT GLUCOSE Routine 12/16/2016 4:17 PM EST AMMONIA Routine 12/16/2016 3:27 PM EST POCT GLUCOSE Routine 12/16/2016 3:[address] HEAD AND CERVICAL SPINE WO CONTRAST STAT 12/16/2016 3:13 PM EST HEMOGRAM STAT 12/16/2016 2:55 PM EST DIFFERENTIAL, AUTOMATED STAT 12/16/2016 2:55 PM EST GOLD TUBE HOLD STAT 12/16/2016 2:55 PM EST PROTHROMBIN TIME STAT 12/16/2016 2:55 PM EST CBC (WITH DIFF) STAT 12/16/2016 2:55 PM EST TROPONIN STAT 12/16/2016 2:55 PM EST LIPASE STAT 12/16/2016 2:55 PM EST HEPATIC FUNCTION PANEL STAT 12/16/2016 2:55 PM EST BASIC METABOLIC PANEL STAT 12/16/2016 2:55 PM EST EKG 12-LEAD STAT 12/16/2016 2:48 PM EST POCT GLUCOSE Routine 12/16/2016 2:17 PM EST documented in this encounter Results * POCT Glucose (12/16/2016 4:17 PM EST) Glucose, POC 72 65 - 199 mg/dL [facility] Comment: Supplemental ranges: <140 mg/dL before meals <180 mg/dL all other times of the day Blood specimen (specimen) 12/16/2016 4:17 PM EST 12/16/2016 4:17 PM EST Espinoza Urias MD POINT OF CARE TEST ORDERABLES [facility] [place] [address] * Ammonia (12/16/2016 3:27 PM EST) Ammonia 42 11 - 51 mcmol/L [facility] Blood specimen (specimen) Venous Draw / Unknown 12/16/2016 3:27 PM EST 12/16/2016 3:49 PM EST Narrative Resulting Agency Comment Spec In Lab Karol Elliott MD CHEMISTRY ORDERABLES Performing Organization Address City/[facility]/ZIP Co de Phone Number [facility] [place] [address] * POCT Glucose (12/16/2016 3:18 PM EST) Glucose, POC 101 65 - 199 mg/dL [facility] Comment: Supplemental ranges: <140 mg/dL before meals <180 mg/dL all other times of the day Blood specimen (specimen) 12/16/2016 3:18 PM EST 12/16/2016 3:18 PM EST Emergency Dept POINT OF CARE TEST ORDERABLES Performing Organization Address [facility] Co de Phone Number [facility] [place] [address] * CT Head & Cervical Spine wo Contrast (Generic) (12/16/2016 3:13 PM EST) Anatomical Region Laterality Modality Head Computed Tomogra phy Impressions 12/16/2016 3:45 PM EST No calvarial or cervical vertebral fracture. No intracranial hemorrhage. I have personally reviewed the image(s) and the residents interpretation and agree with the findings, Wilian Alonso at 12/16/2016 3:45 PM Narrative 12/16/2016 3:45 PM EST EXAMINATION: CT HEAD AND CERVICAL SPINE WO CONTRAST (GENERIC) CLINICAL HISTORY: fall, neck pain TECHNIQUE: Noncontrast CT of the head and cervical spine COMPARISON: Noncontrast head CT August 28, 2016 FINDINGS: Head: No calvarial fracture or intracranial hemorrhage. Queen-white differentiation is well preserved throughout. Ventricles are symmetric in size and normal in configuration. Paranasal sinuses are clear and mastoid air cells well aerated. Cervical spine: Straightening of the normal cervical lordosis likely related to patient positioning. Normal cranial cervical alignment. No acute fracture, prevertebral edema or CT evidence of epidural collection. Mild multilevel degenerative disc disease changes as characterized by osteophytosis, loss of intervertebral disc space and endplate sclerosis. Procedure Note Wilian Alonso MD - 12/16/2016 EXAMINATION: CT HEAD AND CERVICAL SPINE WO CONTRAST (GENERIC) CLINICAL HISTORY: fall, neck pain TECHNIQUE: Noncontrast CT of the head and cervical spine COMPARISON: Noncontrast head CT August 28, 2016 FINDINGS: Head: No calvarial fracture or intracranial hemorrhage. Queen-white differentiation is well preserved throughout. Ventricles are symmetric insize and normal in configuration. Paranasal sinuses are clear and mastoid aircells well aerated. Cervical spine: Straightening of the normal cervical lordosis likelyrelated to patient positioning. Normal cranial cervical alignment. No acutefracture, prevertebral edema or CT evidence of epidural collection. Mildmultilevel degenerative disc disease changes as characterized by osteophytosis, lossof intervertebral disc space and endplate sclerosis. IMPRESSION No calvarial or cervical vertebral fracture. No intracranial hemorrhage. I have personally reviewed the image(s) and the residents interpretationand agree with the findings, Wilian Alnoso at 12/16/2016 3:45 PM Ruth Ortega MD IMG CT ORDERABLES * Gold Tube HOLD (12/16/2016 2:55 PM EST) [facility] Gold Hold Sample in lab. [facility] Blood specimen (specimen) Venous Draw / Unknown 12/16/2016 2:55 PM EST 12/16/2016 3:19 PM EST Ruth Ortega MD CHEMISTRY ORDERABLE S [facility] [place] [address] * (ABNORMAL) Differential, Automated (12/16/2016 2:55 PM EST) [facility] Neutrophil % 67.1 % [facility] Neutrophil Absolute 1.37(L) 1.70 - 6.10 x10(3)/mc L [facility] Lymph % 20.6 % [facility] Lymphocytes Abs 0.4(L) 0.9 - 3.2 x10(3)/mc L [facility] Monocyte % 10.3 % [facility] Monocyte Abs 0.2(L) 0.3 - 0.9 x10(3)/[facility] Eos % 1.5 % [facility] Eosinophils Abs 0.0 0.0 - 0.4 x10(3)/[facility] Basophil % 0.5 % [facility] Baso Absolute 0.0 0.0 - 0.1 x10(3)/[facility] Immature Gran % 0.00 % [facility] Comment: Immature granulocytes(IG's)percentage and absolute count will include metamyelocytes, myelocytes, and promyelocytes. Blood smears from CBCs yielding IG's will be scanned manually for concordance. If this scan disagrees with the automated IG or if promyelocytes are noted, a manual differential will be performed. Immature Gran Absolute 0.00 0.00 - 0.04 x10(3)/[facility] Blood specimen (specimen) 12/16/2016 2:55 PM EST 12/16/2016 3:18 PM EST Narrative Resulting Agency Comment Spec In Lab Ruth Ortega MD HEMATOLOGY ORDERABL ES [facility] [place] [address] * (ABNORMAL) Hemogram (12/16/2016 2:55 PM EST) White Blood Cell 2.0(L) 4.0 - 9.5 x10(3)/[facility] Red Blood Cell 4.57 4.00 - 5.21 x10(6)/[facility] Hemoglobin 13.2 11.7 - 15.5 gm/dL [facility] Hematocrit 39.3 35.7 - 45.8 % [facility] Mean Cell Volume 86.0 82.6 - 94.4 fL [facility] Mean Cell Hemoglobin 28.9 27.1 - 32.0 pg [facility] Mean Cell Hemoglobin Concentration 33.6 31.7 - 35.0 gm/dL [facility] Platelet 55(L) 145 - 357 x10(3)/mc L [facility] RDW Standard Deviation 46.0 37.0 - 46.0 fL [facility] RDW coefficient of variation 14.6(H) 11.5 - 14.1 % [facility] Mean Platelet Volume 11.0 7.6 - 12.9 fL [facility] NRBC% auto 0.0 % [facility] NRBC Absolute 0.000 0.000 - 0.000 x10(3)/mc L [facility] Blood specimen (specimen) 12/16/2016 2:55 PM EST 12/16/2016 3:18 PM EST Narrative Resulting Agency Comment Spec In Lab Ruth Orteag MD HEMATOLOGY ORDERABL ES Performing Organization Address [facility] de Phone Number [facility] [place] [address] * (ABNORMAL) Prothrombin Time (12/16/2016 2:55 PM EST) Prothrombin Time 16.2(H) 12.0 - 15.0 sec [facility] Comment: An INR <2.0 [...] may be appropriate depending on clinical circumstances. International Normalization Ratio 1.2(H) 0.9 - 1.1 [facility] Blood specimen (specimen) 12/16/2016 2:55 PM EST 12/16/2016 3:19 PM EST Narrative Resulting Agency Comment Spec In Lab Ruth Ortega MD HEMATOLOGY ORDERABL ES Performing Organization Address [facility] Co de Phone Number [facility] [place] [address] * Troponin T (12/16/2016 2:55 PM EST) [facility] Troponin-T <0.03 <=0.03 ng/mL [facility] Comment: 0.03 ng/mL: Represents the 99th percentile upper reference limit for normals. >0.03 ng/mL: Elevated cardiac troponin T level indicative of myocardial damage. Diagnosis of acute, evolving or recent MT requires a typical rise and gradual fall of cTnT with at least ONE of the following: a) Ischemic symptoms b) Development of pathologic Q waves on the ECG c) ECG changes indicative of eschemia (S-T segment elevation/depression) d) Coronary artery intervention Serial bloods should be obtained for testing on admission, at 6 to 9 hrs and again at 12 to 24 hrs if earlier samples are negative and the clinical index of suspicion is high. Reference: [Myocardial infarction redefined? a consensus document of the Joint Society of Cardiology/[place] [employer] Committee for the redefinition of myocardial infarction. ??Journal of the [place] College [employer] 2000; 36: 959-969] Blood specimen (specimen) 12/16/2016 2:55 PM EST 12/16/2016 3:18 PM EST Narrative Resulting Agency Comment Spec In Lab Ruth Ortega MD CHEMISTRY ORDERABLE S Performing Organization Address City/[facility]/ZIP Co de Phone Number [facility] [place] [address] * Lipase (12/16/2016 2:55 PM EST) [facility] Lipase 39 0 - 60 unit/L [facility] Blood specimen (specimen) 12/16/2016 2:55 PM EST 12/16/2016 3:18 PM EST Narrative Resulting Agency Comment Spec In Lab Ruth Ortega MD CHEMISTRY ORDERABLE S Performing Organization Address City/[facility]/ZIP Co de Phone Number [facility] [place] [address] * Hepatic Function Panel (12/16/2016 2:55 PM EST) [facility] Protein, Total 7.2 6.1 - 8.0 gm/dL [facility] Albumin 4.0 3.2 - 5.2 gm/dL [facility] Aspartate Aminotransferase 18 0 - 30 unit/L [facility] Alanine Aminotransferase 13 0 - 30 unit/L [facility] Alkaline Phosphatase 91 40 - 104 unit/L [facility] Bilirubin, Total 0.5 0.2 - 1.3 mg/dL [facility] Bilirubin, Direct 0.1 0.0 - 0.3 mg/dL [facility] Blood specimen (specimen) 12/16/2016 2:55 PM EST 12/16/2016 3:18 PM EST Narrative Resulting Agency Comment Spec In Lab Ruth Ortega MD CHEMISTRY ORDERABLE S [facility] [place] [address] * (ABNORMAL) Basic Metabolic Panel (non-fasting) (12/16/2016 2:55 PM EST) Glucose 51(Critic al) 65 - 199 mg/dL [facility] Comment: called bycls/read back by (Brian Douglas/DAVID)/12/16/16 16:07 Diabetes: >=200 mg/dL plus symptoms Blood Urea Nitrogen 11 8 - 18 mg/dL [facility] Creatinine 0.88 0.70 - 1.20 mg/dL [facility] Comment: Please note that the pediatric reference intervals supplied above were not validated at [facility]. Results from pediatric patients should be interpreted in conjunction to the patient's age, height and muscle mass. Sodium 143 135 - 145 mmol/L [facility] Potassium 3.7 3.5 - 5.0 mmol/L [facility] Comment: Please note: ??Patients with WBC >100,000 may have falsely elevated Potassium levels. ??For accurate Potassium quantification in these patients send serum separator tube (gold top) for subsequent determinations. ??Contact the Clinical Chemistry Laboratory if there are any questions. Chloride 104 98 - 107 mmol/L [facility] Carbon Dioxide 26 22 - 31 mmol/L [facility] Anion Gap 13 5 - 15 mmol/L [facility] Calcium 8.9 8.5 - 10.5 mg/dL [facility] Est Glomerular Filtration Rate >60 >=60 [facility] Comment: This estimated GFR (eGFR) value was calculated using the MDRD equation which has been validated on patients between the ages of 18 and 70. The MDRD should not be used to assess kidney function in patients < 18 years of age or in patients with extremes of body mass, or in patients with acute kidney failure. This value should be multiplied by 1.2 for patients. For further information please copy and paste the following links into your internet browser. [email or web address] Blood specimen (specimen) 12/16/2016 2:55 PM EST 12/16/2016 3:18 PM EST Narrative Resulting Agency Comment Spec In Lab Ruth Ortega MD CHEMISTRY ORDERABLE S [facility] [place] [address] * EKG 12 Lead (12/16/2016 2:48 PM EST) Ventricular rate 72 BPM MUSE SYSTEM Atrial Rate 72 BPM MUSE SYSTEM P-R Interval 144 ms MUSE SYSTEM QRS Duration 88 ms MUSE SYSTEM Q-T Interval 386 ms MUSE SYSTEM QTC Calculated (Bezet) 422 ms MUSE SYSTEM Calculated P [place] 77 degrees MUSE SYSTEM Calculated R [place] 75 degrees MUSE SYSTEM Calculated T [place] 63 degrees MUSE SYSTEM INTERPRETATION Normal sinus rhythm with Premature atrial complexes Normal ECG When compared with ECG of 17-NOV-2016 17:50, No significant change was found Confirmed by WESLEY, ??, ELVIRA ([id number]) on 12/16/2016 9:07:34 PM MUSE SYSTEM 12/16/2016 2:48 PM EST 12/16/2016 9:07 PM EST Ruth Ortega MD ECG ORDERABLES MUSE SYSTEM * (ABNORMAL) POCT Glucose (12/16/2016 2:17 PM EST) Glucose, POC 49(Critica l) 65 - 199 mg/dL [facility] Comment: Supplemental ranges: <140 mg/dL before meals <180 mg/dL all other times of the day Blood specimen (specimen) 12/16/2016 2:17 PM EST 12/16/2016 2:17 PM EST Emergency Dept POINT OF CARE TEST ORDERABLES [facility] [place] [address] documented in this encounter Visit Diagnoses Diagnosis Syncope, unspecified syncope type documented in this encounter Administered Medications Inactive Administered Medications - up to 3 most recent administrations Medication Order MAR Action Action Date Dose Rate Site dextrose 50% injection 50 mL 50 mL (25 g), Intravenous, ONCE, 1 dose, On Kirsten 12/16/16 at 1548, Warning Vesicant/Irritant Medication , STAT Given 12/16/2016 2:30 PM EST 50 mLs HYDROmorphone (DILAUDID) injection 0.5 mg 0.5 mg, Intravenous, ONCE, 1 dose, On Kirsten 12/16/16 at 1547, STAT Given 12/16/2016 3:49 PM EST 0.5 mg LORazepam (ATIVAN) injection 1 mg 1 mg, Intravenous, ONCE, 1 dose, On Kirsten 12/16/16 at 1641, STAT Given 12/16/2016 5:17 PM EST 1 mg ondansetron (ZOFRAN) injection 4 mg 4 mg, Intravenous, ONCE, 1 dose, On Kirsten 12/16/16 at 1452, STAT Given 12/16/2016 3:44 PM EST 4 mg ondansetron (ZOFRAN) injection 4 mg 4 mg, Intravenous, EVERY 8 HOURS SCHEDULED, First dose on Kirsten 12/16/16 at 1430, Until Discontinued Given 12/16/2016 2:30 PM EST 4 mg sodium chloride 0.9% 1,000 mL IV bolus at 4,000 mL/hr, Intravenous, ONCE, 1 dose, On Kirsten 12/16/16 at 1656 Given 12/16/2016 5:17 PM EST 4000 mL/hr sodium chloride 0.9% 500 mL IV bolus at 2,000 mL/hr, Intravenous, ONCE, 1 dose, On Kirsten 12/16/16 at 1443 Given 12/16/2016 3:52 PM EST 2000 mL/hr documented in this encounter Active and Recently Administered Medications Times are shown in EST. Scheduled Medication Order 12/14/2016 12/15/2016 12/16/2016 dextrose 50% injection 50 mL (COMPLETED) 50 mL (25 g), Intravenous, ONCE, 1 dose, On Kirsten 12/16/16 at 1548, Warning Vesicant/Irritant Medication , STAT 1430 (Given - Provid er: Brian Goddard RN) HYDROmorphone (DILAUDID) injection 0.5 mg (COMPLETED) 0.5 mg, Intravenous, ONCE, 1 dose, On Kirsten 12/16/16 at 1547, STAT 1549 (Given - Provid er: Brian Goddard RN) LORazepam (ATIVAN) injection 1 mg (COMPLETED) 1 mg, Intravenous, ONCE, 1 dose, On Kirsten 12/16/16 at 1641, STAT 1717 (Given - Provid er: Brian Goddard RN) ondansetron (ZOFRAN) injection 4 mg (COMPLETED) 4 mg, Intravenous, ONCE, 1 dose, On Kirsten 12/16/16 at 1452, STAT 1544 (Given - Provid er: Brian Goddard RN) ondansetron (ZOFRAN) injection 4 mg 4 mg, Intravenous, EVERY 8 HOURS SCHEDULED, First dose on Kirsten 12/16/16 at 1430, Until Discontinued 1430 (Given - Provid er: Brian Goddard RN) sodium chloride 0.9% 1,000 mL IV bolus (COMPLETED) at 4,000 mL/hr, Intravenous, ONCE, 1 dose, On Kirsten 12/16/16 at 1656 1717 (Given - Provid er: Brian Goddard RN) sodium chloride 0.9% 500 mL IV bolus (COMPLETED) at 2,000 mL/hr, Intravenous, ONCE, 1 dose, On Kirsten 12/16/16 at 1443 1552 (Given - Provid er: Brian Goddard RN) sodium chloride 0.9% 500 mL IV bolus at 2,000 mL/hr, Intravenous, ONCE, 1 dose, On Kirsten 12/16/16 at 1621 1621 (Hold - Provide r: Brian Goddard RN - Reason: Contraindicated) documented in this encounter Care Teams Scheduling Manager Relationship Specialty Start Date End Date Jayden Tijerina Jr., MD [address] [place] [address] PCP - General Family Medicine 12/16/16 04/05/19 documented as of this encounter
--- OUTSIDE RECORDS SUMMARY | 2024-11-22 17:34 | XMS_ITS | Encounter Summary ---
Author Organization [facility] [address] [place] [address] Care Team Providers Care Electrical Manager Name Role Phone Lilliana Goyla MD, Jayden Leonardo Primary Care Provider + Reason for Visit * Reason Comments Medication Refill Encounter Details Date Type Department Care Team (Late Contact Info) Description 08/01/2017 Refill Gastroenterology at [place] [phone] Ijeoma Smith MD [facility] [place] [address] Chronic abdominal pain Social History Tobacco Use [...] 11/29/2024 1:30 PM EST Appointment XRay at [address] [place] [address] Laurent Cabrera MD [facility] [place] [address] 11/29/2024 2:20 PM EST Office [place] [address] Laurent Cabrera MD [facility] [place] [address] documented as of this encounter Visit Diagnoses Diagnosis Chronic abdominal pain Abdominal pain, unspecified site documented in this encounter Care Teams Electrical Manager Relationship Specialty Start Date End Date Jayden Tijerina Jr., MD [address] [place] [id number] PCP - General Family Medicine 12/16/16 04/05/19 documented as of this encounter
--- OUTSIDE RECORDS SUMMARY | 2024-11-22 17:34 | XMS_ITS | Encounter Summary ---
Author Organization [facility] Address [facility] [address] [place] [address] Care Team Providers Care Char Filter Tank Tender Head Name Role Phone Lilliana Goyal MD, Jayden Leonardo Primary Care Provider + Encounter Details Date Type Department Care Team (Latest Contact Info) Description 08/31/2017 9:52 AM EDT - 08/31/2017 11:59 PM EDT Hospital [place] [address] Ijeoma Singer MD [facility] [place] [address] 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 Discharge Disposition: Home Social History Tobacco Use [...] 6 hours as needed. Reported on 11/08/2016 amitriptyline (ELAVIL) 10 mg TabletIndications:Chr onic abdominal pain Take 2 tablets by mouth nightly. 180 tablet 3 08/31/2017 10/27/2017 ERGOCALCIFEROL, VITAMIN D2, (VITAMIN D ORAL) Take 1,000 Units by mouth daily. 04/18/2019 FERROUS SULFATE, DRIED (IRON, DRIED, ORAL)Indications:Panc ytopenia Take 65 mg by mouth 3 times daily. 04/18/2019 documented as of this encounter Plan of Treatment Upcoming Encounters Date Type Department Care Team (Late st Contact Info) Description 11/29/2024 1:30 PM EST Appointment XRay at [address] [place] [address] Laurent Cabrera MD [facility] [place] [address] 11/29/2024 2:20 PM EST Office Visit Orthopaedics at [facility] [place] [address] Laurent Cabrera MD [facility] [place] [address] documented as of this encounter Procedures Procedure Name Priority Date/Time Associated Diagnosis Comments US ABDOMEN COMPLETE WITH VASCULAR Routine 08/31/2017 10:42 AM EDT 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 documented in this encounter Results * US Abdomen Complete With Vascular (08/31/2017 10:42 AM EDT) Anatomical Region Laterality Modality Abdomen Ultrasound 08/31/2017 10:4 3 AM EDT Impressions 08/31/2017 11:39 AM EDT ??Shrunken nodular liver without focal mass. Stigmata ofportal venous hypertension characterized by splenomegaly, distended corticalveins. No ascites. 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 ?Brenda Gallagher MD Electronically Signed Final Report ?? 08/31/2017 11:39 am Narrative 08/31/2017 11:39 AM EDT Abdominal Duplex ? (Signed Final 08/31/2017 11:39 am) PATIENT INFO: ID #: ? [id number] ? : 60 (57 yrs) Name: ? RISSA YUN ? Visit Date:08/31/2017 10:43 am PERFORMED BY: Performed By: ? Lester Chan RDMS Attending: ?Brenda Gallagher MD Referred By: ?IJEOMA SINGER Location: ? [place] SERVICE(S) PROVIDED: ??UABDCVASC - Abdominal Complete Survey with Vascular - 93931, [id number] ??[id number] INDICATIONS: ??Cirrhosis: survey for Hepatocellular carcinoma, ??evaluate for complications of portal hypertension ??including portal zoe thrombosis COMPARISON: Prior CT: AB PEL 12/16/16 HEPATIC-PORTAL DUPLEX: ? PSV ? EDV ? RI ?Waveform ? (cm/s) ??(cm/s) Hepatic Artery: ?? 45.9 ?7.98 ?0.83 ?Patent Right Hepatic ? Patent where seen Vein: Middle Hepatic ?Patent where seen Vein: Left Hepatic ?Patent where seen Vein: Portal Vein At ?Patent [place]: Main Portal ? 32.2 ?Patent Vein: Right Portal ?Patent Vein: Left Portal Vein: ? Patent Splenic Vein At ? Patent [place]: Splenic Vein: ? Nonocclusive ? thrombus IVC: ?Patent ?Direction of Flow Main Portal ?Hepatopetal Vein: Collaterals: ??None visualized ---- IVC: ---- Proximal portion, normal in caliber ------ LIVER: ------ Right Lobe Length: ?? 15.5 ?? cm Echogenicity/Echotexture: ?? Coarse parenchyma with capsular ? nodularity Comment: ?Dilated main portal vein measuring 24.2 mm. ------- SPLEEN: ------- Size (cm) ? L: 22.4 ?AP: ??10.3 ?TV: ??12.7 Vol (ml): ?1534.2 Comment: ?Severe splenomegaly ------ AORTA: ------ Measurements (cm): Proximal ?AP: ??2.7 Mid ? AP: ??1.5 Distal ?AP: ??1.7 Comment: ?Normal in caliber where visualized. Limited views. RIGHT KIDNEY: Size (cm) ? L: 10.9 Cortical Thickness: ?Normal Cortical Echogenicity: ?? Normal Hydronephrosis: ?No sonographic evidence LEFT KIDNEY: Size (cm) ? L: 11.8 Cortical Thickness: ?Normal Cortical Echogenicity: ?? Normal Hydronephrosis: ?No sonographic evidence GALLBLADDER: Comment: ?Surgically removed BILIARY TRACT: Intrahepatic Ducts: ?? Normal Extrahepatic Ducts: ?? Normal Common Duct Size: ? 2.0 ? mm --------- PANCREAS: --------- Head: ? Poorly visualized due to overlying bowel Tail: ? Not visualized due to overlying bowel Body: ? Poorly visualized due to overlying bowel FLUID COLLECTIONS: No ascites seen. Procedure Note Brenda Gallagher MD - 08/31/2017 Abdominal Duplex (Signed Final 08/31/2017 11:39 am) PATIENT INFO: ID #: [id number] : 60 (57 yrs) Name: RISSA Doug TL Visit Date:08/31/2017 10:43 am PERFORMED BY: Performed By: Lester Chan RDMS Attending: Brenda Gallagher MD Referred By: IJEOMA SINGER Location: [place] SERVICE(S) PROVIDED: UABDCVASC - Abdominal Complete Survey with Vascular - 35035, [id number] [id number] INDICATIONS: Cirrhosis: survey for Hepatocellular carcinoma, evaluate for complications of portal hypertension including portal zoe thrombosis COMPARISON: Prior CT: AB PEL 12/16/16 HEPATIC-PORTAL DUPLEX: PSV EDV RI Waveform (cm/s) (cm/s) Hepatic Artery: 45.9 7.98 0.83 Patent Right Hepatic Patent where seen Vein: Middle Hepatic Patent where seen Vein: Left Hepatic Patent where seen Vein: Portal Vein At Patent [place]: Main Portal 32.2 Patent Vein: Right Portal Patent Vein: Left Portal Vein: Patent Splenic Vein At Patent [place]: Splenic Vein: Nonocclusive thrombus IVC: Patent Direction of Flow Main Portal Hepatopetal Vein: Collaterals: None visualized ---- IVC: ---- Proximal portion, normal in caliber ------ LIVER: ------ Right Lobe Length: 15.5 cm Echogenicity/Echotexture: Coarse parenchyma with capsular nodularity Comment: Dilated main portal vein measuring 24.2 mm. ------- SPLEEN: ------- Size (cm) L: 22.4 AP: 10.3 TV: 12.7 Vol (ml): 1534.2 Comment: Severe splenomegaly ------ AORTA: ------ Measurements (cm): Proximal AP: 2.7 Mid AP: 1.5 Distal AP: 1.7 Comment: Normal in caliber where visualized. Limited views. RIGHT KIDNEY: Size (cm) L: 10.9 Cortical Thickness: Normal Cortical Echogenicity: Normal Hydronephrosis: No sonographic evidence LEFT KIDNEY: Size (cm) L: 11.8 Cortical Thickness: Normal Cortical Echogenicity: Normal Hydronephrosis: No sonographic evidence GALLBLADDER: Comment: Surgically removed BILIARY TRACT: Intrahepatic Ducts: Normal Extrahepatic Ducts: Normal Common Duct Size: 2.0 mm --------- PANCREAS: --------- Head: Poorly visualized due to overlying bowel Tail: Not visualized due to overlying bowel Body: Poorly visualized due to overlying bowel FLUID COLLECTIONS: No ascites seen. IMPRESSION Shrunken nodular liver without focal mass. Stigmata ofportal venous hypertension characterized by splenomegaly, distended corticalveins. No ascites. 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
--- OUTSIDE RECORDS SUMMARY | 2024-11-22 17:34 | XMS_ITS | Encounter Summary ---
Author Organization [facility] [address] [place] [address] Care Team Providers Care Checkout Supervisor Name Role Phone Lilliana Goyal MD, Jayden Leonardo Primary Care Provider + Reason for Visit * Reason Onset Date Comments Advice Only 12/29/2017 Encounter Details Date Type Department Care Team (Late Contact Info) Description 12/29/2017 Telephone Gastroenterology at [facility] [place] [address] Lary Villalpando, fraud prevention analyst Only Social History Tobacco Use Types Packs/Day [...] encounter Miscellaneous Notes * Telephone Encounter - Lray Villalpando RN - 12/29/2017 2:03 PM EST Patient calling in today for advice. States my eyes are really getting yellow, and I'm so tired all the time. Phyliss c/o occasional pain in my liver area. Lab orders faxed to [facility]. Tara will go tomorrow for CBC, CMP and PT/INR. documented in this encounter Plan of Treatment Upcoming Encounters Date Type Department Care Team (Late Contact Info) Description 11/29/2024 1:30 PM EST Appointment XRay at [address] [place] [address] Laurent Cabrera MD [facility] [place] [address] 11/29/2024 2:20 PM EST Office Visit Orthopaedics at [facility] [place] [address] Laurent Cabrera MD [facility] [place] [address] documented as of this encounter Visit Diagnoses Not on filedocumented in this encounter Care Teams Checkout Supervisor Relationship Specialty Start Date End Date Jayden Tijerina Jr., MD [address] [place] [address] PCP - General Family Medicine 12/16/16 04/05/19 documented as of this encounter
--- OUTSIDE RECORDS SUMMARY | 2024-11-22 17:34 | XMS_ITS | Encounter Summary ---
Author Organization [facility] [address] [place] [address] Care Team Providers Care Regional Dedicated Truck Driver Name Role Phone Lilliana Goyal MD, Jayden Leonardo Primary Care Provider + Encounter Details Date Type Department Care Team (Late st Contact Info) Description 12/15/2016 Telephone Gastroenterology at [facility] [place] [phone] America Michelle Social History Tobacco Use Types Packs/Day Years [...] encounter Miscellaneous Notes * Telephone Encounter - America Shepard - 12/15/2016 10:55 AM EST Caller: Patient Call for: Liver Nurse Reason for call: Patient is calling to see if somebody can talk to her about her results from a recent procedure. She also states she has been sleeping more than normal and is very tired lately and doesn't know why. Call back urgency: routine Ok to leave detailed message? no Patient's preferred method of communication: please call [phone] Rev'd chart and returned call to patient. Rev'd result letter from endoscopy with patient, she has not yet rec'd in her mail. She is relievedno HPylori seen. No further questions or concerns presently. documented in this encounter Plan of Treatment Upcoming Encounters Date Type Department Care Team (Late st Contact Info) Description 11/29/2024 1:30 PM EST Appointment XRay at [address] [place] [address] Laurent Cabrera MD [facility] [place] [address] 11/29/2024 2:20 PM EST Office Visit Orthopaedics at [facility] [place] [address] Laurent Cabrera MD [facility] [place]THOPAED[place] [address] documented as of this encounter Visit Diagnoses Not on filedocumented in this encounter Care Teams Regional Dedicated Truck Driver Relationship Specialty Start Date End Date Jayden Tijerina Jr., MD [address] [place] [address] PCP - General Family Medicine 12/16/16 04/05/19 documented as of this encounter
--- OUTSIDE RECORDS SUMMARY | 2024-11-22 17:34 | XMS_ITS | Encounter Summary ---
Author Organization [facility] [address] [place] [address] Care Team Providers Care Oracle Security Consultant Name Role Phone Dom Benson Primary Care Provider [phone]- [phone] Encounter Details Date Type Department Care Team (Late Contact Info) Description 12/08/2016 Orders [place] [address] Ijeoma Smith MD [facility] [address] Pancytopenia Social History Tobacco Use Types Packs/Day [...] 1:30 PM EST Appointment XRay at [address] [place] [address] Laurent Cabrera MD [facility] [place] [address] 11/29/2024 2:20 PM EST Office Visit [place] [address] Laurent Cabrera MD [facility] [place] [address] documented as of this encounter Visit Diagnoses Diagnosis Pancytopenia Other pancytopenia documented in this encounter Care Teams Oracle Security Consultant Relationship Specialty Start Date End Date Dom Benson DO [facility] [address] [facility] [place] [address] PCP - General Family Medicine 12/02/16 12/15/16 documented as of this encounter
--- OUTSIDE RECORDS SUMMARY | 2024-11-22 17:34 | XMS_ITS | Encounter Summary ---
Author Organization [facility] [place] [address] [place] [address] Care Team Providers Care Rubber Goods Inspector Tester Name Role Phone Dom Benson Primary Care Provider [phone] Encounter Details Date Type Department Care Team (Late st Contact Info) Description 12/08/2016 7:39 AM EST Anesthesia [place] [address] Amanda Polanco MD [facility] [place] [address] Ruth Goldstein CRNA [facility] [place] [address] Anesthesia Record Procedure Summary Procedure Name Responsible Anesthesiologist Anesthesia Start Time Anesthesia Stop Time UPPER GASTROINTESTINAL ENDOSCOPY,WITH BIOPSY SINGLE OR MULTIPLE (WRVU 2.39) Amanda Polanco MD 12/08/16 0739 12/08/16 0808 Events Date Time Event Comment 12/08/2016 0739 AN Verify 0739 Start 0742 An Start Data 0744 0749 An Induction 0750 Anesthesia Ready 0800 An Data Art Pt bending arm w BP cuff 0808 an stop data 0808 Recovery or ICU Handoff Janette ent care was transferred to the destination unit staff after review of the patient's medical history, current anesthetic/surgical status and plan, according to the Provider Handoff Checklist. 0808 Stop Meds Name Total IV Lidocaine 75 mg Propofol 150 mg lactated ringers infusion 400 mL * Agents Name O2 * Blood No blood administrations on file. Lines, Drains, and Airways Type Details Placement Removal Incision 04/09/13; 1330; hip; 07/19/22 (LDA cleanup utility RA#[id number]); 1715 (LDA cleanup utility RA#[id number]) 04/09/13 1330 by Brenda Dubois RN 07/19/22 1715 by Thiago Billings (RETIRED) Peripheral IV Line - Single Lumen 12/08/16; 0740; median vein (underside of arm), right; [id number] catheter system; 22 gauge; amanda polanco md; distraction, intradermal injection, tolerated well; 2 (attempted x2 by sheila quintero rn); cephalic vein (lateral side of arm), right, metacarpal vein (top of hand), right; 12/08/16; 0838 12/08/16 0740 by Soni Russell RN 12/08/16 0838 by Soni Russell RN documented in this encounter Social History [...] OR Notes * Anesthesia Postprocedure Evaluation - Amanda Polanco MD - 12/08/2016 8:41 AM EST [facility] Department of Anesthesiology Post-procedure Note Patient: Tara Camacho Yun Procedure Summary Date Anesthesia Start Anesthesia Stop Room / Location 12/08/16 0739 0808 [facility] ENDO 7 / [facility] ENDOSCOPY Procedure Diagnosis Surgeon Responsible Provider UPPER GASTROINTESTINAL ENDOSCOPY,WITH BIOPSY SINGLE OR MULTIPLE (WRVU 2.49) (N/A ) (recheck for varices; CT is scheduled for 11/29/16@2:00pm; (consult)) Ijeoma Smith MD Procopio, Marcia A, MD All Anesthesia Providers: Anesthesiologist: Amanda Polanco MD HEAD SCORER: Goldstein, Ruth A, HEAD SCORER Last (1hr) Vitals: BP 120/75 (12/08/16 0830) Temp Pulse Resp 16 (12/08/16 0830) SpO2 97 % (12/08/16 0830) Patient Location: PACU/[facility] Level of Consciousness: Awake and Alert Pain Management: Satisfactory Analgesia PONV: None Cardiovascular Status: At Baseline and Hemodynamically Stable Respiratory Status: At Baseline and Room Air Postoperative Fluid Status: Intravascular EUvolemia Possible Anesthetic Complications: NONE apparent at time of evaluation Final Primary Anesthesia Type: MAC (The anesthetic type performed was the same as planned.) Comments: AMANDA POLANCO MD * Anesthesia Preprocedure Evaluation - Amanda Polanco MD - 12/08/2016 7:42 AM EST Images from the original note were not included. Pre-Anesthesia Evaluation for: Tara Yun a 56 y.o. female. Procedure(s): EGD, UPPER GI ENDOSCOPY Patient Active Problem List Diagnosis ??? MGUS (monoclonal gammopathy of unknown significance) ??? Mediastinal adenopathy ??? Hypovitaminosis D ??? [...] smoker ??? S/P hernia repair Past Medical History Diagnosis Date ??? Arthritis ??? Asthma mild intermittent ??? Depression ??? GERD (gastroesophageal reflux disease) ??? Hepatitis C antibody test positive ??? Hyperlipidemia ??? Hypothyroid Past Surgical History Procedure Laterality Date ??? Pro bone marrow aspiration w/bx through same incision/site 04/09/2013 [place] BONE MARROW ASP PERFORMED W/BX THRU BX INCISION performed by Dom Zeng MD at [facility] ??? Pro bone marrow bx, needle/trocar 04/09/2013 [place] [place] BONE MARROW,BIOPSY performed by Dom Zeng MD at [facility] ??? Ventral hernia repair 01/11/13 [place] ??? Appendectomy 11/16/96 ??? Dental surgery 03/25/1989 ??? Knee surgery x 11 ??? Total knee arthroplasty 2006 left ??? Total knee arthroplasty 2005 right ??? Toe surgery 2006 right ??? Hysterectomy 1987 ??? Ovary removal 1987 ??? Cholecystectomy 1992 ??? Hiatal hernia repair 1992 ??? Gastric fundoplication 1992 ??? Tonsillectomy 1960 ??? Pro colonoscopy, diagnostic 06/06/2013 COLONOSCOPY, DIAGNOSTIC performed by Juventino Esteban MD at [facility] ENDOSCOPY Social History Substance Use Topics ??? Smoking status: Current Some Day Smoker Packs/day: 0.50 Years: 30.00 Types: Cigarettes ??? Smokeless tobacco: Never Used Comment: Working on cutting down. ??? Alcohol use No Comment: No hx of heavy ETOH. 1 drink 2-3 times a year. Last ETOH x 1 month ago. History Drug Use ??? Yes ??? Special: Pain Pills (oxycontin, oxycodone, morphine, etc) Comment: Tried snorting drugs once in 2010. No hx of IV drug use. Allergies Allergen Reactions ??? Ketorolac Shortness Of Breath, Nausea Only and Rash ??? Metoclopramide Shortness Of Breath, Nausea Only and Other (See Comments) Jittery ??? Morphine Shortness Of Breath and Other (See Comments) Abd. Pain ??? Sulfa (Sulfonamide Antibiotics) Anaphylaxis, Itching and Rash ??? Aspirin Other (See Comments) Low platelets ??? Codeine Nausea Only ??? Nsaids (Non-Steroidal Anti-Inflammatory Drug) Other (See Comments) Platlet count goes low ??? Prochlorperazine ??? Tylenol [Acetaminophen] Other (See Comments) Liver issues Medications: MAR and/or home medications have been reviewed. Physical Exam: Vitals: 12/08/16 0710 BP: 113/76 Pulse: 70 Resp: 18 Body mass index is 32.78 kg/(m^2). Height: 165.1 cm (5' 5) Weight - Scale: 89.4 kg (197 lb) Airway Assessment: Mallampati: II TM distance: >3 FB Neck ROM: full Cardiovascular Assessment: Pulmonary Assessment: Dental Assessment: Misc Assessment: Anesthesia Plan: ASA 3 MAC, with a(n) intravenous induction 56 year old female with Hep C, cirrhosis, platelet count 40K NPO Multiple allergies noted in chart and confirmed with patient Smoker Pancytopenia Well controlled GERD Region - Other Informed Consent: Anesthetic plan and risks discussed with patient. Plan discussed with HEAD SCORER. PAT Staff Note documented in this encounter Miscellaneous Notes * Addendum Note - Ruth Goldstein CRNA - 12/08/2016 12:03 PM EST Addendum created 12/08/16 1203 by Ruth Goldstein CRNA Anesthesia Intra Flowsheets edited documented in this encounter Plan of Treatment Upcoming Encounters Date Type Department Care Team (Late st Contact Info) Description 11/29/2024 1:30 PM EST Appointment XRay at [address] [place] [address] Laurent Cabrera MD [facility] [place] [address] 11/29/2024 2:20 PM EST Office Visit Orthopaedics at [facility] [place] [address] Laurent Cabrera MD [facility] [place] [address] documented as of this encounter Visit Diagnoses Not on filedocumented in this encounter Administered Medications Inactive Administered Medications - up to 3 most recent administrations Medication Order MAR Action Action Date Dose Rate Site lactated ringers infusion 100 mL/hr, Intravenous, CONTINUOUS, Starting on Tue12/08/16 at 0730, Until Tue12/08/16 at 0838, Endoscopy (Day of Procedure) New Bag 12/08/2016 7:42 AM EST 100 mL/hr 100 mL/hr New Bag 12/08/2016 7:39 AM EST lidocaine (PF) (XYLOCAINE) 100 mg/5 mL (2 %) injection PRN, Starting on Tue12/08/16 at 0749, Until Tue12/08/16 at 0808, Anesthesia Intra-op, Routine Given 12/08/2016 7:56 AM EST 25 mg Given 12/08/2016 7:49 AM EST 50 mg propofol (DIPRIVAN) 10 mg/mL bolus injection (Anesthesia) PRN, Starting on Tue12/08/16 at 0749, Until Tue12/08/16 at 0808, Anesthesia Intra-op Given 12/08/2016 7:57 AM EST 50 mg Given 12/08/2016 7:49 AM EST 100 mg documented in this encounter Care Teams Rubber Goods Inspector Tester Relationship Specialty Start Date End Date Dom Benson, [facility] [place] [address] PCP - General Family Medicine 12/02/16 12/15/16 documented as of this encounter
--- OUTSIDE RECORDS SUMMARY | 2024-11-22 17:34 | XMS_ITS | Encounter Summary ---
[facility] Address [facility] [place] [address] [place] [address] Care Team Providers Care Salesperson Men'S Hats Name Role Phone Unavailable Primary Care Provider Unavailabl e Reason for Visit * Reason Onset Date Comments Other 11/19/2016 Encounter Details Date Type Department Care Team (Late st Contact Info) Description 11/19/2016 Refill Family Medicine at [facility] [address] [place] [id number] Araceli Morris Nausea without vomiting Social History Tobacco Use Types Packs/Day Years [...] Miscellaneous Notes * Telephone Encounter - Katherin Moody RN - 11/19/2016 12:02 PM EST Images from the original note were not included. Attempted to call patient, no answer, no voicemail. Per GI phone doc. Anastasia Walker RN ?? 11/19/16 11:17 AM Note Pt calls again today: ?? They told me in the ER to see sooner than later because I have a clot, and I'm very nervous and still have pain and nausea, and I'm all out of the pain and nausea medicine, and I want to know what to do. I haven't called my primary care doctor. ?? - rev'd chart: Recent ED visit 11-17, had CT scan , report: IMPRESSION: No splenic infarct or hemorrhage is detected. 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 Marked splenomegaly without change. ?? Plan was possible admit for pain management from ED on 11-17, according to notes, but pt chose to go home. Was given RX for oral narcotic, oxycodone x 10 tablets and Zofran 12 tabs on 11-17-16. Referred to pain clinic for pain management, no GIF appt yet here. ?? - takes oxycodone 4 tabs per day, has 2 tabs left. - takes Zofran and only has 2 left - I'm not eating much, I get diarrhea and it pours out of me, my urine is dark, and I threw up once yesterday. I can drink fluids a bit but I can't eat anything, I'm so nauseous. ?? Advised her if she is having continued LUQ pain and nausea, vomiting and diarrhea, needs to return to ED for eval and care / possible IV fluids for hydration, etc. ?? Pt verbalizes understanding of instructions and will get ride to ED. ? This encounter is not signed. The conversation may still be ongoing. Additional Documentation Encounter Info: ?? Billing Info, History, Allergies, Detailed Report Orders Placed None Medication Renewals and Changes None Medication List Visit Diagnoses None Problem List * Telephone Encounter - Katherin Moody RN - 11/19/2016 11:56 AM EST Spoke to patient who was seen in ED on 11/17/16 for LUQ pain. Pt now requesting refill Oxycodone and refill of Zofran. Will forward to COS. * Telephone Encounter - Araceli Morris - 11/19/2016 11:25 AM EST Message: pt is calling stating that she would like to speak to a nurse in regards to some medication and a f/u from being in the hospital 11/17/16. Please call Caller and relationship (if other than patient-full name): self Or [phone] Best time to call back: any Ok to leave a message: [y] Ok to send - message: [] Offered Appointment: Nurse contacted via: Message: x Call: Pager: documented in this encounter Plan of Treatment Upcoming Encounters Date Type Department Care Team (Late st Contact Info) Description 11/29/2024 1:30 PM EST Appointment XRay at [address] [place] [address] Laurent Cabrera MD [facility] [place] [address] 11/29/2024 2:20 PM EST Office Visit Orthopaedics at [facility] [place] [address] Laurent Cabrera MD [facility] [place] [address] documented as of this encounter Visit Diagnoses Diagnosis Nausea without vomiting documented in this encounter
--- OUTSIDE RECORDS SUMMARY | 2024-11-22 17:34 | XMS_ITS | Encounter Summary ---
Author Organization [facility] Address [facility] [address] [place] [address] Care Team Providers Care Ward Secretary Name Role Phone Lilliana Goyal MD, Jayden Leonardo Primary Care Provider + Encounter Details Date Type Department Care Team (Late st Contact Info) Description 06/24/2017 Telephone [place] [phone] Ijeoma Smith MD [facility] [place] [address] Social History Tobacco Use Types Packs/Day Years [...] encounter Miscellaneous Notes * Telephone Encounter - Elia Gallo RN - 06/24/2017 12:51 PM EDT TC from pt stating that she is scheduled to see Dr. Smith 08/31/2017. Pt states that she was seen at the [facility] ER twice in the past month and that her platelet count has dropped from 54 to 44 over the course of 2.5 weeks. Instructed pt that I would call [facility] and have them fax over the medical records from her past two ER visits there, including any lab work and/or imaging. Instructed pt that Dr. Smith would review the Medical Records from [facility] once we get them and that we would call her to follow-up whether or not she needs to be seen sooner than her next apt with Dr. Smith (08/31/2017). Instructed pt to follow [facility]'s ER Discharge instructions in the interm. (msg forwarded to Dr. Smith for review) documented in this encounter Plan of Treatment Upcoming Encounters Date Type Department Care Team (Late st Contact Info) Description 11/29/2024 1:30 PM EST Appointment XRay at [address] [place] [address] Laurent Cabrera MD [facility] [place] [address] 11/29/2024 2:20 PM EST Office [facility] [place] [facility] [place] [address] Laurent Cabrera MD [facility] [place] [address] documented as of this encounter Visit Diagnoses Not on filedocumented in this encounter Care Teams Ward Secretary Relationship Specialty Start Date End Date Jayden Tijerina Jr., MD [address] [place] [address] PCP - General Family Medicine 12/16/16 04/05/19 documented as of this encounter
--- OUTSIDE RECORDS SUMMARY | 2024-11-22 17:34 | XMS_ITS | Encounter Summary ---
Author Organization [facility]ly [facility] [place] [place] [address] Care Team Providers Care Statistical Clerk Name Role Phone Unavailable Primary Care Provider Unavailabl e Reason for Visit * Reason Comments Abdominal Pain Encounter Details Date Type Department Care Team (Late st Contact Info) Description 11/19/2016 8:49 PM EST - 11/20/2016 6:46 AM EST Emergency Emergency Department [facility] [place] [id number] Marjorie Ramos MD Upper abdominal pain; Splenic infarction Discharge Disposition: Home Social History Tobacco Use [...] Sign Reading Time Taken Comments Blood Pressure 111/67 11/20/2016 5:45 AM EST Pulse 61 11/20/2016 5:45 AM EST Temperature 36.7 ??C (98.1 ??F) 11/19/2016 11:[address] Respiratory Rate 11 11/20/2016 5:45 AM EST Oxygen Saturation 95% 11/20/2016 5:45 AM EST Inhaled Oxygen Concentration - - Weight - - Height - - Body Mass Index - - documented in this encounter Discharge Instructions * Discharge Instructions* Anthony Smith MD - 11/20/2016 6:10 AM EST You have follow up scheduled on Tuesday. Please return here beforehand if your symptoms worsen orif you have any other concerns. documented in this encounter Medications at Time of Discharge Medication Sig Dispensed Refills Start Date End Date ondansetron (ZOFRAN, HYDROCHLORIDE,) 4 mg Tablet Take 1-2 tablets by mouth every 8 hours as needed for Nausea. 12 tablet 11/20/2016 albuterol (PROVENTIL) 2.5 mg /3 mL (0.083 %) Solution for Nebulization Take 2.5 mg by nebulization every 6 hours as needed. Reported on 11/08/2016 oxyCODONE (ROXICODONE) 5 mg Tablet Take 1-2 tablets by mouth every 4 hours as needed for Pain. No driving, no alcohol 10 tablet 11/20/2016 11/23/2016 fluticasone (FLOVENT) 110 mcg/actuation HFA Aerosol Inhaler Inhale 1 puff into the lungs 2 times daily. 11/23/2016 albuterol (PROAIR HFA) 90 mcg/actuation HFA Aerosol Inhaler Inhale 2 puffs into the lungs every 6 hours as needed. Reported on 11/08/2016 11/23/2016 RIFAXIMIN 550 mg TabletIndications:Hepat ic encephalopathy take 1 tablet by mouth twice a day 60 tablet 3 01/20/2015 08/31/2017 ERGOCALCIFEROL, VITAMIN D2, (VITAMIN D ORAL) Take 1,000 Units by mouth daily. 04/18/2019 levothyroxine (SYNTHROID) 25 mcg tabletIndications:Pancy topenia Take 25 mcg by mouth daily. 11/23/2016 pantoprazole (PROTONIX) 40 mg tabletIndications:Pancy topenia Take 20 mg by mouth daily. 11/23/2016 FERROUS SULFATE, DRIED (IRON, DRIED, ORAL)Indications:Pancyt openia Take 65 mg by mouth 3 times daily. 04/18/2019 documented as of this encounter ED Notes * Anthony Smith MD - 11/20/2016 6:46 AM EST FINA Yun is a 56 y.o. 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 Symptoms present since she was discharged 2 days ago. Plan was for GI outpatient follow up to consider anticoagulation, however she was also offered admission for pain control but declined. Denies other recent assoc sx suchas f/c, fatigue, diaphoresis, headache, lightheadedness, confusion, vision changes, cough, sore throat, SOB, CP or palpitations, d/c, dysuria, hematuria, myalgias/arthralgias, bleeding/bruises/rashes, or n/t/w in her extremities. Review of Systems: Pertinent positive and negative ROS discussed in HPI, a total of 10 systems were reviewed with no other significant positives. Physical Exam: Patient Vitals for the past 24 hrs: BP Temp Temp src Pulse Resp SpO2 11/20/16 0545 111/67 - - 61 11 95 % 11/20/16 0530 115/74 - - 59 11 97 % 11/20/16 0515 125/74 - - 67 11 - 11/20/16 0500 126/88 - - 65 14 - 11/20/16 0445 113/68 - - 66 11 - 11/20/16 0430 112/75 - - 65 11 - 11/20/16 0415 115/86 - - 69 12 - 11/20/16 0400 137/87 - - 67 17 - 11/20/16 0345 127/77 - - 82 26 97 % 11/20/16 0330 124/75 - - 69 11 92 % 11/20/16 0315 139/90 - - 59 12 - 11/20/16 0300 132/78 - - 66 13 94 % 11/20/16 0245 126/84 - - 69 13 95 % 11/20/16 0230 126/66 - - 72 12 - 11/20/16 0215 120/73 - - 69 12 - 11/20/16 0200 122/72 - - 71 16 - 11/20/16 0115 116/75 - - 68 15 94 % 11/20/16 0100 (!) 126/102 - - 80 17 92 % 11/20/16 0045 122/81 - - 76 18 - 11/20/16 0030 122/73 - - 76 17 94 % 11/20/16 0015 109/67 - - 71 13 96 % 11/20/16 0000 112/80 - - 75 20 94 % 11/19/16 2345 - - - 76 12 96 % 11/19/16 2330 110/57 36.7 ??C (98.1 ??F) Oral 73 13 96 % 11/19/16 2315 113/75 - - 75 9 96 % 11/19/16 2300 110/72 - - 76 14 94 % 11/19/16 2245 113/76 - - 78 13 94 % 11/19/16 2230 104/61 - - 70 13 (!) 84 % 11/19/16 2215 106/66 - - 78 14 - 11/19/16 2200 106/63 - - 72 16 90 % 11/19/16 2145 102/53 - - 76 14 (!) 88 % 11/19/16 2130 106/58 - - 69 16 90 % 11/19/16 2115 99/63 - - 73 22 95 % 11/19/16 2110 100/70 - - - - - 11/19/16 2103 - 36.7 ??C (98.1 ??F) Oral 74 24 97 % Physical Exam Constitutional: She is oriented to person, place, and time. She appears well- developed and well-nourished. No distress. Appears uncomfortable but in NAD HENT: Head: Normocephalic and atraumatic. Right Ear: External ear normal. Left Ear: External ear normal. Nose: Nose normal. Mouth/Throat: Oropharynx is clear and moist. Eyes: Conjunctivae are normal. Right eye exhibits no discharge. Left eye exhibits no discharge. Neck: Normal range of motion. Neck supple. Cardiovascular: Normal rate. Pulmonary/Chest: Effort normal and breath sounds normal. No respiratory distress. She has no wheezes. She has no rales. She exhibits no tenderness. Abdominal: Soft. She exhibits no distension. There is no rebound and no guarding. Diffuse ttp most common in the epigastric area Musculoskeletal: Normal range of motion. She exhibits no edema, tenderness or deformity. Neurological: She is alert and oriented to person, place, and time. Skin: Skin is warm and dry. No rash noted. She is not diaphoretic. No erythema. No pallor. Nursing note and vitals reviewed. ED Course: - Patient was evaluated and discussed with Dr. Ramos - Medications, allergies and past medical history reviewed - Medications and fluids administered: 1L NS x2, Zofran 4mg, Dilaudid 1mg x 2, Phenergan 25mg - I reviewed the labwork, notable for: Pancytopenia at baseline, LFTs/lipase unremarkable Recent Results (from the past 24 hour(s)) Basic Metabolic Panel (non-fasting) Result Value Ref Range Glucose Lvl 92 65 - 199 mg/dL BUN 9 8 - 18 mg/dL Creatinine 0.87 0.70 - 1.20 mg/dL Sodium 143 135 - 145 mmol/L Potassium 3.7 3.5 - 5.0 mmol/L Chloride 103 98 - 107 mmol/L CO2 28 22 - 31 mmol/L Anion Gap 12 5 - 15 mmol/L Calcium 8.6 8.5 - 10.5 mg/dL Estimated GFR >60 >=60 Hepatic Function Panel Result Value Ref Range Total Protein 6.5 6.1 - 8.0 gm/dL Albumin 3.8 3.2 - 5.2 gm/dL AST 26 0 - 30 unit/L ALT 29 0 - 30 unit/L Alk Phos 116 (H) 40 - 104 unit/L Total Bilirubin 0.7 0.2 - 1.3 mg/dL Bili, Direct 0.2 0.0 - 0.3 mg/dL Lipase Result Value Ref Range Lipase 14 0 - 60 unit/L Hemogram Result Value Ref Range WBC 1.4 (CRIT) 4.0 - 9.5 x10(3)/mcL RBC 3.98 (L) 4.00 - 5.21 x10(6)/mcL Hemoglobin 11.4 (L) 11.7 - 15.5 gm/dL Hematocrit 34.2 (L) 35.7 - 45.8 % MCV 85.9 82.6 - 94.4 fL MCH 28.6 27.1 - 32.0 pg MCHC 33.3 31.7 - 35.0 gm/dL Platelets 49 (L) 145 - 357 x10(3)/mcL RDWSD 45.7 37.0 - 46.0 fL RDWCV 14.5 (H) 11.5 - 14.1 % MPV 10.8 7.6 - 12.9 fL nRBC % Auto 0.0 % nRBC Abs Auto 0.000 0.000 - 0.000 x10(3)/mcL Differential, Automated Result Value Ref Range Neutrophils % 63.6 % Neutr Abs (ANC) 0.89 (L) 1.70 - 6.10 x10(3)/mcL Lymphocytes % 23.6 % Lymphocytes Abs 0.3 (L) 0.9 - 3.2 x10(3)/mcL Monocytes % 10.7 % Monocyte Abs 0.2 (L) 0.3 - 0.9 x10(3)/mcL Eosinophils % 2.1 % Eosinophils Abs 0.0 0.0 - 0.4 x10(3)/mcL Basophils % 0.0 % Basophils Abs 0.0 0.0 - 0.1 x10(3)/mcL Immature Gran % 0.00 % Marcie Gran Abs 0.00 0.00 - 0.04 x10(3)/mcL Blue Tube HOLD Result Value Ref Range Blue Hold Sample in lab. Scan, Peripheral Blood Result Value Ref Range Plat Estimate Decreased RBC Morphology Abnormal Ovalocytes 1-5 /HPF - I reassessed the patient throughout their stay: Reported significant symptomatic relief followingmed and fluid administration. For the majority of her stay she was resting/sleeping comfortably in bed, kept in the ED until she could get a ride in the AM Assessment and Plan: Assessment: 56 y.o. female with a newly diagnosed splenic vein thrombosis presents with persistent of her symptoms since prior discharge 2 days ago. Symptoms improved while in the ED. There does not seem to be an acute injury, as her labs as detailed above are unremarkable for a new process, and her abdominal exam was benign. Thus I do not think she warrants repeat imaging at this time. HD stableand in NAD throughout the ED stay. Plan: - Follow up with GI scheduled in 4 days - Given short course prescriptions for Oxycodone and Zofran to hold her over until then - Return precautions were verbally discussed with the patient and written in the discharge instructions. The patient expressed understanding that they could come back to the ED at any time and agreedto the follow-up plan. Anthony Smith MD Resident 11/20/16 1807 Associated attestation - Marjorie Ramos MD - 11/20/2016 7:15 PM EST ED ATTENDING ATTESTATION NOTE The patient was seen in conjunction with Dr. Smith, the resident physician. I have independently performed the brown portions of the history and physical exam. I have reviewed the nursing notes, vitalsigns, and all diagnostic studies personally including labs, imaging studies and EKGs. I have discussed the details of the case with the resident and agree with the assessment and plan as described in the resident note above unless noted otherwise below. Brief Summary: 56 yo F with recent dx splenic vein thrombosis, p/w uncontrolled pain at home. Labs wnl, no acute change in pain since initial diagnosis. Given above and good pain control here in ED pt OK for d/c to home with strict return precautions Final Assessment: abdominal pain, splenic vein thrombosis documented in this encounter Plan of Treatment Upcoming Encounters Date Type Department Care Team (Late st Contact Info) Description 11/29/2024 1:30 PM EST Appointment XRay at [address] [place] [address] Laurent Cabrera MD [facility] [place] [address] 11/29/2024 2:20 PM EST Office Visit Orthopaedics at [facility] [place] [place] [address] Laurent Cabrera MD [facility] [place] [address] documented as of this encounter Procedures Procedure Name Priority Date/Time Associated Diagnosis Comments SCAN, PERIPHERAL BLOOD STAT 11/19/2016 10:50 PM EST HEMOGRAM STAT 11/19/2016 10:50 PM EST DIFFERENTIAL, AUTOMATED STAT 11/19/2016 10:50 PM EST BLUE TUBE HOLD STAT 11/19/2016 10:50 PM EST CBC (WITH DIFF) STAT 11/19/2016 10:50 PM EST TSH STAT 11/19/2016 10:50 PM EST LIPASE STAT 11/19/2016 10:50 PM EST HEPATIC FUNCTION PANEL STAT 11/19/2016 10:50 PM EST BASIC METABOLIC PANEL STAT 11/19/2016 10:50 PM EST documented in this encounter Results * TSH (11/19/2016 10:50 PM EST) Thyroid Stimulating Hormone 1.91 0.27 - 4.20 mcIU/mL [facility] Blood specimen (specimen) Venous Draw / Unknown 11/19/2016 10:50 PM EST 11/19/2016 11:03 PM EST Narrative Resulting Agency Comment Spec In Lab Karol Viramontes MD CHEMISTRY ORDERABLES Performing Organization Address City/[facility]/ZIP Co de Phone Number [facility] [place] [address] * Scan, Peripheral Blood (11/19/2016 10:50 PM EST) Plat estimate Decreased [facility] RBC Morphology Abnormal [facility] Ovalocytes 1-5 /HPF [facility] Blood specimen (specimen) 11/19/2016 10:50 PM EST 11/19/2016 11:01 PM EST Narrative Resulting Agency Comment Spec In Lab Karol Viramontes MD HEMATOLOGY ORDERABLE S [facility] [place] [address] * Blue Tube HOLD (11/19/2016 10:50 PM EST) [facility] Blue Hold Sample in lab. [facility] Blood specimen (specimen) Venous Draw / Unknown 11/19/2016 10:50 PM EST 11/19/2016 11:01 PM EST Karol Viramontes MD HEMATOLOGY ORDERABLE S Performing Organization Address City/[facility]/ZIP Co de Phone Number [facility] [place] [address] * (ABNORMAL) Differential, Automated (11/19/2016 10:50 PM EST) Neutrophil % 63.6 % [facility] Neutrophil Absolute 0.89(L) 1.70 - 6.10 x10(3)/ L [facility] Lymph % 23.6 % [facility] Lymphocytes Abs 0.3(L) 0.9 - 3.2 x10(3)/ L [facility] Monocyte % 10.7 % [facility] Monocyte Abs 0.2(L) 0.3 - 0.9 x10(3)/[facility] Eos % 2.1 % [facility] Eosinophils Abs 0.0 0.0 - 0.4 x10(3)/[facility] Basophil % 0.0 % [facility] Baso Absolute 0.0 0.0 - 0.1 x10(3)/[facility] Immature Gran % 0.00 % [facility] Comment: Immature granulocytes(IG's)percentage and absolute count will include metamyelocytes, myelocytes, and promyelocytes. Blood smears from CBCs yielding IG's will be scanned manually for concordance. If this scan disagrees with the automated IG or if promyelocytes are noted, a manual differential will be performed. Immature Gran Absolute 0.00 0.00 - 0.04 x10(3)/mc L [facility] Blood specimen (specimen) 11/19/2016 10:50 PM EST 11/19/2016 11:01 PM EST Narrative Resulting Agency Comment Spec In Lab Karol Viramontes MD HEMATOLOGY ORDERABLE S Performing Organization Address [facility]/ZIP Co de Phone Number [facility] [place] [address] * (ABNORMAL) Hemogram (11/19/2016 10:50 PM EST) White Blood Cell 1.4(Criti gee) 4.0 - 9.5 x10(3)/mc L [facility] Comment: This result has been called to NIKI BURNETTE by Kina Campos on 11 19 2016 at 2327, and has been read back. Red Blood Cell 3.98(L) 4.00 - 5.21 x10(6)/mc L [facility] Hemoglobin 11.4(L) 11.7 - 15.5 gm/dL [facility] Hematocrit 34.2(L) 35.7 - 45.8 % [facility] Mean Cell Volume 85.9 82.6 - 94.4 fL [facility] Mean Cell Hemoglobin 28.6 27.1 - 32.0 pg [facility] Mean Cell Hemoglobin Concentration 33.3 31.7 - 35.0 gm/dL [facility] Platelet 49(L) 145 - 357 x10(3)/mc L [facility] RDW Standard Deviation 45.7 37.0 - 46.0 fL [facility] RDW coefficient of variation 14.5(H) 11.5 - 14.1 % [facility] Mean Platelet Volume 10.8 7.6 - 12.9 fL [facility] NRBC% auto 0.0 % [facility] NRBC Absolute 0.000 0.000 - 0.000 x10(3)/mc L [facility] Blood specimen (specimen) 11/19/2016 10:50 PM EST 11/19/2016 11:01 PM EST Narrative Resulting Agency Comment Spec In Lab Karol Viramontes MD HEMATOLOGY ORDERABLE S [facility] [place] [address] * Lipase (11/19/2016 10:50 PM EST) Pathologist [facility] Lipase 14 0 - 60 unit/L [facility] Blood specimen (specimen) 11/19/2016 10:50 PM EST 11/19/2016 11:01 PM EST Narrative Resulting Agency Comment Spec In Lab Karol Viramontes MD CHEMISTRY ORDERABLES Performing Organization Address [facility] Co de Phone Number [facility] [place] [address] * (ABNORMAL) Hepatic Function Panel (11/19/2016 10:50 PM EST) [facility] Protein, Total 6.5 6.1 - 8.0 gm/dL [facility] Albumin 3.8 3.2 - 5.2 gm/dL [facility] Aspartate Aminotransferase 26 0 - 30 unit/L [facility] Alanine Aminotransferase 29 0 - 30 unit/L [facility] Comment:result rechecked-[facility] Alkaline Phosphatase 116(H) 40 - 104 unit/L [facility] Bilirubin, Total 0.7 0.2 - 1.3 mg/dL [facility] Bilirubin, Direct 0.2 0.0 - 0.3 mg/dL [facility] Blood specimen (specimen) 11/19/2016 10:50 PM EST 11/19/2016 11:01 PM EST Narrative Resulting Agency Comment Spec In Lab Karol Viramontes MD CHEMISTRY ORDERABLES Performing Organization Address [facility] Co de Phone Number [facility] [place] [address] * Basic Metabolic Panel (non-fasting) (11/19/2016 10:50 PM EST) [facility] Glucose 92 65 - 199 mg/dL [facility] Comment:Diabetes: >=200 mg/d L plus symptoms Blood Urea Nitrogen 9 8 - 18 mg/dL [facility] Creatinine 0.87 0.70 - 1.20 mg/dL [facility] Comment: Please note that the pediatric reference intervals supplied above were not validated [place] [facility] Results from pediatric patients should be interpreted in conjunction to the patient's age, height and muscle mass. Sodium 143 135 - 145 mmol/L [facility] Potassium 3.7 3.5 - 5.0 mmol/L [facility] Comment: Please note: ??Patients with WBC >100,000 may have falsely elevated Potassium levels. ??For accurate Potassium quantification in these patients send serum separator tube (gold top) for subsequent determinations. ??Contact the Clinical Chemistry Laboratory if there are any questions. Chloride 103 98 - 107 mmol/L [facility] Carbon Dioxide 28 22 - 31 mmol/L [facility] Anion Gap 12 5 - 15 mmol/L [facility] Calcium 8.6 8.5 - 10.5 mg/dL [facility] Est Glomerular Filtration Rate >60 >=60 [facility] Comment: This estimated GFR [...] the following links into your internet browser. [email or web address] Blood specimen (specimen) 11/19/2016 10:50 PM EST 11/19/2016 11:01 PM EST Narrative Resulting Agency Comment Spec In Lab Karol Viramontes MD CHEMISTRY ORDERABLES [facility] [place] [address] documented in this encounter Visit Diagnoses Diagnosis Upper abdominal pain Abdominal pain, other specified site Splenic infarction Other diseases of spleen documented in this encounter Administered Medications Inactive Administered Medications - up to 3 most recent administrations Medication Order MAR Action Action Date Dose Rate Site HYDROmorphone (DILAUDID) injection 1 mg 1 mg, Intravenous, ONCE, 1 dose, On Tue11/19/16 at 2332, STAT Given 11/19/2016 11:45 PM EST 1 mg Left Arm HYDROmorphone (DILAUDID) injection 1 mg 1 mg, Intravenous, ONCE, 1 dose, On 11/20/16 at 0156, STAT Given 11/20/2016 1:56 AM EST 1 mg ondansetron (ZOFRAN) injection 4 mg 4 mg, Intravenous, ONCE, 1 dose, On Tue11/19/16 at 2243, STAT Given 11/19/2016 10:43 PM EST 4 mg promethazine (PHENERGAN) injection 25 mg 25 mg, Intravenous, ONCE, On 11/20/16 at 0255, 1 dose, VESICANT - Dilute with a minimum of 10 mL saline. LARGE VEIN only. Inject over 10 minutes into the farthest port of a running IV infusion. Remain with the patient and STOP infusion immediately if patient reports burning. Avoid extravasation. Given 11/20/2016 2:56 AM EST 25 mg sodium chloride 0.9% 1,000 mL IV bolus at 4,000 mL/hr, Intravenous, ONCE, 1 dose, On Tue11/19/16 at 2243 Given 11/19/2016 10:43 PM EST 4000 mL/hr sodium chloride 0.9% 1,000 mL IV bolus at 4,000 mL/hr, Intravenous, ONCE, 1 dose, On 11/20/16 at 0156 Given 11/20/2016 2:15 AM EST 4000 mL/hr documented in this encounter Active and Recently Administered Medications Times are shown in EST. Scheduled Medication Order 11/18/2016 11/19/2016 11/20/2016 HYDROmorphone (DILAUDID) injection 1 mg (COMPLETED) 1 mg, Intravenous, ONCE, 1 dose, On Tue11/19/16 at 2332, STAT 2345 (Given - Provider: Quang Singh RN) HYDROmorphone (DILAUDID) injection 1 mg (COMPLETED) 1 mg, Intravenous, ONCE, 1 dose, On 11/20/16 at 0156, STAT 0156 (Given - Provid er: Zara Garcia RN) ondansetron (ZOFRAN) injection 4 mg (COMPLETED) 4 mg, Intravenous, ONCE, 1 dose, On Tue11/19/16 at 2243, STAT 2243 (Given - Provider: Sabina Flores RN) promethazine (PHENERGAN) injection 25 mg (COMPLETED) 25 mg, Intravenous, ONCE, On 11/20/16 at 0255, 1 dose, VESICANT - Dilute with a minimum of 10 mL saline. LARGE VEIN only. Inject over 10 minutes into the farthest port of a running IV infusion. Remain with the patient and STOP infusion immediately if patient reports burning. Avoid extravasation. 0256 (Given - Provid er: Zara Garcia RN) sodium chloride 0.9% 1,000 mL IV bolus (COMPLETED) at 4,000 mL/hr, Intravenous, ONCE, 1 dose, On Tue11/19/16 at 2243 2243 (Given - Provider: Sabina Floers RN) 0000 (IV Stop - Provider: Quang Singh RN) sodium chloride 0.9% 1,000 mL IV bolus (COMPLETED) at 4,000 mL/hr, Intravenous, ONCE, 1 dose, On 11/20/16 at 0156 0215 (Given - Provid er: Zara Garcia RN) documented in this encounter
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
--- OUTSIDE RECORDS SUMMARY | 2024-11-22 17:34 | XMS_ITS | Encounter Summary ---
Author Organization [facility] [address] [place] [address] Care Team Providers Care Drawbridge Tender Name Role Phone Lilliana Goyal MD, Jayden Leonardo Primary Care Provider + Reason for Visit * Reason Comments Medication Refill Encounter Details Date Type Department Care Team (Late st Contact Info) Description 03/04/2017 [place] [address] Ijeoma Smith MD [facility] [place] [address] Social History Tobacco Use Types Packs/Day Years [...] 11/29/2024 1:30 PM EST Appointment XRay at [address] [place] [address] Laurent Cabrera MD [facility] [place] [address] 11/29/2024 2:20 PM EST Office [place] [address] Laurent Cabrera MD [facility] [place] [address] documented as of this encounter Visit Diagnoses Not on filedocumented in this encounter Care Teams Drawbridge Tender Relationship Specialty Start Date End Date Jayden Tijerina Jr., MD [address] [place] [id number] PCP - General Family Medicine 12/16/16 04/05/19 documented as of this encounter
--- OUTSIDE RECORDS SUMMARY | 2024-11-22 17:34 | XMS_ITS | Encounter Summary ---
Author Organization [facility] [place] [address] [place] [address] Care Team Providers Care Lead Network Engineer Name Role Phone Lilliana Goyal MD, Jayden Leonardo Primary Care Provider + Encounter Details Date Type Department Care Team (Latest Contact Info) Description 08/08/2017 12:04 PM EDT - 08/08/2017 11:59 PM EDT Hospital Encounter Hematology and Oncology at [facility] [place] [phone] Pancytopenia; Enlargement of spleen; Anemia, unspecified type Discharge Disposition: Home Social History Tobacco [...] 6 hours as needed. Reported on 11/08/2016 LYRICA 25 mg Capsule 08/02/2017 017 amitriptyline (ELAVIL) 10 mg TabletIndications:Chron ic abdominal pain TAKE 1 TABLET BY MOUTH NIGHTLY. 30 tablet 08/01/2017 08/31/2017 oxyCODONE (ROXICODONE) 5 mg Tablet Take 1 tablet by mouth every 4 hours as needed for Pain. 30 tablet 12/08/2016 08/31/2017 RIFAXIMIN 550 mg TabletIndications:Hepat ic encephalopathy take [...] 1:30 PM EST Appointment XRay at [address] [place] [address] [facility] [place] [address] 11/29/2024 2:20 PM EST Office Visit Orthopaedics at [facility] [place] [address] [facility] [place] [address] documented as of this encounter Procedures Procedure Name Priority Date/Time Associated Diagnosis Comments SCAN, PERIPHERAL BLOOD STAT 7 12:16 PM EDT HEMOGRAM Routine 08/08/2017 12:16 PM EDT Pancytopenia Enlargement of spleen Anemia, unspecified type DIFFERENTIAL, AUTOMATED Routine 08/08/2017 12:16 PM EDT Pancytopenia Enlargement of spleen Anemia, unspecified type IRON AND TIBC Routine 08/08/2017 12:16 PM EDT Pancytopenia Enlargement of spleen Anemia, unspecified type RETICULOCYTE COUNT STAT 08/08/2017 12 :16 PM EDT Pancytopenia Enlargement of spleen Anemia, unspecified type CBC (WITH DIFF) Routine 08/08/2017 12:16 PM EDT Pancytopenia Enlargement of spleen Anemia, unspecified type LACTATE DEHYDROGENASE Routine 08/08/2017 12:16 PM EDT Pancytopenia Enlargement of spleen Anemia, unspecified type FOLATE, SERUM Routine 08/08/2017 12:16 PM EDT Pancytopenia Enlargement of spleen Anemia, unspecified type FERRITIN Routine 08/08/2017 12:16 PM EDT Pancytopenia Enlargement of spleen Anemia, unspecified type VITAMIN B12 STAT 08/08/2017 12:16 PM EDT Pancytopenia Enlargement of spleen Anemia, unspecified type COMPREHENSIVE METABOLIC PANEL Routine 08/08/2017 12:16 PM EDT Pancytopenia Enlargement of spleen Anemia, unspecified type documented in this encounter Results * Scan, Peripheral Blood (08/08/2017 12:16 PM EDT) Plat estimate Decreased [facility] RBC Morphology Abnormal [facility] Ovalocytes 1-5 /HPF [facility] Blood specimen (specimen) 08/08/2017 12:16 PM EDT 08/08/2017 12:24 PM EDT Narrative Resulting Agency Comment Spec In Lab Dom Zeng MD HEMATOLOGY ORDER YANN [facility] [place] [address] * (ABNORMAL) Differential, Automated (08/08/2017 12:16 PM EDT) Neutrophil % 70.2 % [facility] Neutrophil Absolute 1.25(L) 1.70 - 6.10 x10(3)/ L [facility] Lymph % 18.5 % [facility] Lymphocytes Abs 0.3(L) 0.9 - 3.2 x10(3)/[facility] Monocyte % 9.6 % [facility] Monocyte Abs 0.2(L) 0.3 - 0.9 x10(3)/[facility] Eos % 1.1 % [facility] Eosinophils Abs 0.0 0.0 - 0.4 x10(3)/[facility] Basophil % 0.0 % [facility] Baso Absolute 0.0 0.0 - 0.1 x10(3)/[facility] Immature Gran % 0.60 % [facility] Comment: Immature granulocytes(IG's)percentage and absolute count will include metamyelocytes, myelocytes, and promyelocytes. Blood smears from CBCs yielding IG's will be scanned manually for concordance. If this scan disagrees with the automated IG or if promyelocytes are noted, a manual differential will be performed. Immature Gran Absolute 0.01 0.00 - 0.04 x10(3)/ L [facility] Blood specimen (specimen) 08/08/2017 12:16 PM EDT 08/08/2017 12:24 PM EDT Narrative Resulting Agency Comment Spec In Lab Dom Zeng MD HEMATOLOGY ORDER YANN [facility] [place] [address] * (ABNORMAL) Hemogram (08/08/2017 12:16 PM EDT) White Blood Cell 1.8(Criti gee) 4.0 - 9.5 x10(3)/mc L [facility] Red Blood Cell 4.27 4.00 - 5.21 x10(6)/mc L [facility] Hemoglobin 12.1 11.7 - 15.5 gm/dL [facility] Hematocrit 36.7 35.7 - 45.8 % [facility] Mean Cell Volume 85.9 82.6 - 94.4 fL [facility] Mean Cell Hemoglobin 28.3 27.1 - 32.0 pg [facility] Mean Cell Hemoglobin Concentration 33.0 31.7 - 35.0 gm/dL [facility] Platelet 41(L) 145 - 357 x10(3)/ L [facility] RDW Standard Deviation 45.1 37.0 - 46.0 fL [facility] RDW coefficient of variation 14.6(H) 11.5 - 14.1 % [facility] Mean Platelet Volume 10.4 7.6 - 12.9 fL [facility] NRBC% auto 0.0 % [facility] NRBC Absolute 0.000 0.000 - 0.000 x10(3)/ L [facility] Blood specimen (specimen) 08/08/2017 12:16 PM EDT 08/08/2017 12:24 PM EDT Narrative Resulting Agency Comment Spec In Lab Dom Zeng MD HEMATOLOGY ORDER YANN [facility] [place] [address] * Lactate Dehydrogenase (08/08/2017 12:16 PM EDT) Lactate Dehydrogenase 141 110 - 220 unit/L [facility] Blood specimen (specimen) 08/08/2017 12:16 PM EDT 08/08/2017 12:24 PM EDT Narrative Resulting Agency Comment Spec In Lab Dom Zeng MD CHEMISTRY ORDERA BLES Performing Organization Address City/[facility]/ZIP Co de Phone Number [facility] [place] [address] * Reticulocyte Count (08/08/2017 12:16 PM EDT) Reticulocyte % 1.9 0.7 - 2.5 % [facility] Retic Abs # 0.080 0.020 - 0.110 x10(6)/mcL [facility] Immature Retic% 13.2 0.5 - 13.8 % [facility] Reticulated Hgb 32.0 29.8 - 39.4 pg [facility] Blood specimen (specimen) 08/08/2017 12:16 PM EDT 08/08/2017 12:24 PM EDT Narrative Resulting Agency Comment Spec In Lab Dom Zeng MD HEMATOLOGY ORDER YANN Performing Organization Address [facility]/ZIP Co de Phone Number [facility] [place] [address] * (ABNORMAL) Iron and TIBC (08/08/2017 12:16 PM EDT) Iron 60 30 - 150 mcg/dL [facility] TIBC 334 250 - 450 mcg/dL [facility] Iron Saturation 18(L) 20 - 50 % [facility] Blood specimen (specimen) 08/08/2017 12:16 PM EDT 08/08/2017 12:24 PM EDT Narrative Resulting Agency Comment Spec In Lab Dom Zeng MD CHEMISTRY ORDERA BLES Performing Organization Address City/[facility]/ZIP Co de Phone Number [facility] [place] [address] * Ferritin (08/08/2017 12:16 PM EDT) Ferritin 71 30 - 400 ng/mL [facility] Comment: Pediatric reference ranges not verified at [facility] interpret with caution. Reference ranges for females greater than 50 years of age approach values for men, i.e., 30-400 ng/mL. Blood specimen (specimen) 08/08/2017 12:16 PM EDT 08/08/2017 12:24 PM EDT Narrative Resulting Agency Comment Spec In Lab Dom Zeng MD CHEMISTRY ORDERA BLES [facility] [place] [address] * Folate, serum (08/08/2017 12:16 PM EDT) Folate 5.3 4.8 - 24.2 ng/mL [facility] Blood specimen (specimen) 08/08/2017 12:16 PM EDT 08/08/2017 12:24 PM EDT Narrative Resulting Agency Comment Spec In Lab Dom Zeng MD CHEMISTRY ORDERA BLES Performing Organization Address [facility]/ZIP Co de Phone Number [facility] [place] [address] * Vitamin B12 (08/08/2017 12:16 PM EDT) Vitamin B12 292 207 - 974 pg/mL [facility] Blood specimen (specimen) 08/08/2017 12:16 PM EDT 08/08/2017 12:24 PM EDT Narrative Resulting Agency Comment Spec In Lab Dom Zeng MD CHEMISTRY ORDERA BLES Performing Organization Address City/[facility]/ZIP Co de Phone Number [facility] [place] [address] * Comprehensive metabolic panel (non-fasting) (08/08/2017 12:16 PM EDT) Glucose 79 65 - 199 mg/dL [facility] Comment:Diabetes: >=200 mg/d L plus symptoms Blood Urea Nitrogen 13 8 - 18 mg/dL [facility] Creatinine 0.77 0.70 - 1.20 mg/dL [facility] Comment: Please note that the pediatric reference intervals supplied above were not validated at [facility]. Results from pediatric patients should be interpreted in conjunction to the patient's age, height and muscle mass. Sodium 143 135 - 145 mmol/L [facility] Potassium 4.2 3.5 - 5.0 mmol/L [facility] Comment: Please note: ??Patients with WBC >100,000 may have falsely elevated Potassium levels. ??For accurate Potassium quantification in these patients send serum separator tube (gold top) for subsequent determinations. ??Contact the Clinical Chemistry Laboratory if there are any questions. Chloride 105 98 - 107 mmol/L [facility] Carbon Dioxide 27 22 - 31 mmol/L [facility] Anion Gap 11 5 - 15 mmol/L [facility] Calcium 9.2 8.5 - 10.5 mg/dL [facility] Protein, Total 7.3 6.1 - 8.0 gm/dL [facility] Albumin 4.2 3.2 - 5.2 gm/dL [facility] Aspartate Aminotransferase 16 0 - 30 unit/L [facility] Alanine Aminotransferase 11 0 - 30 unit/L [facility] Alkaline Phosphatase 84 40 - 104 unit/L [facility] Bilirubin, Total 0.6 0.2 - 1.3 mg/dL [facility] Est Glomerular Filtration Rate >60 >=60 [facility] Comment: This estimated GFR (eGFR) [...] the following links into your internet browser. [email or web address] Blood specimen (specimen) 08/08/2017 12:16 PM EDT 08/08/2017 12:24 PM EDT Narrative Resulting Agency Comment Spec In Lab Dom Zeng MD CHEMISTRY ORDERA BLES [facility] [place] [address] documented in this encounter Visit Diagnoses Diagnosis Pancytopenia Other pancytopenia Enlargement of spleen Splenomegaly Anemia, unspecified type documented in this encounter Care Teams Lead Network Engineer Relationship Specialty Start Date End Date Jayden Tijerina Jr., MD [address] [place] [address] PCP - General Family Medicine 12/16/16 04/05/19 documented as of this encounter
--- OUTSIDE RECORDS SUMMARY | 2024-11-22 17:34 | XMS_ITS | Encounter Summary ---
Author Organization [facility] [place] [place] [address] Care Team Providers Care Blanking Press Operator Name Role Phone Lilliana Goyal MD, Jayden Leonardo Primary Care Provider + Encounter Details Date Type Department Care Team (Late st Contact Info) Description 08/31/2017 12:00 PM EDT Laboratory Appointment Lab [address] [place] [address] Social History Tobacco Use Types Packs/Day Years [...] 1:30 PM EST Appointment XRay at [address] [place] [phone] Laurent Cabrera MD [facility] [place] [address] 11/29/2024 2:20 PM EST Office [place] [phone] Laurent Cabrera MD [facility] [place] [address] documented as of this encounter Visit Diagnoses Not on filedocumented in this encounter Care Teams Blanking Press Operator Relationship Specialty Start Date End Date Jayden Tijerina Jr., MD [address] [place] [address] PCP - General Family Medicine 12/16/16 04/05/19 documented as of this encounter
--- OUTSIDE RECORDS SUMMARY | 2024-11-22 17:34 | XMS_ITS | Encounter Summary ---
Author Organization [facility] [place] [place] [address] Care Team Providers Care Topographic Computator Name Role Phone Lilliana Goyal MD, Jayden Leonardo Primary Care Provider + Reason for Visit * Reason Onset Date Comments Medication Refill 06/13/2017 Encounter Details Date Type Department Care Team (Late Contact Info) Description 06/13/2017 [place] [phone] Ijeoma Smith MD [facility] [place] [address] Chronic abdominal pain Social History Tobacco Use [...] 1:30 PM EST Appointment XRay at [address] [place] [phone] Laurent Cabrera MD [facility] [place] [address] 11/29/2024 2:20 PM EST Office [place] [address] Laurent Cabrera MD [facility] [place] [address] documented as of this encounter Visit Diagnoses Diagnosis Chronic abdominal pain Abdominal pain, unspecified site documented in this encounter Care Teams Topographic Computator Relationship Specialty Start Date End Date Jayden Tijerina Jr., MD [address] [place] [address] PCP - General Family Medicine 12/16/16 04/05/19 documented as of this encounter
--- OUTSIDE RECORDS SUMMARY | 2024-11-22 17:34 | XMS_ITS | Encounter Summary ---
Author Organization [facility] [address] [place] [address] Care Team Providers Care Clinical Researcher Name Role Phone Lilliana Goyal MD, Jayden Leonardo Primary Care Provider + Encounter Details Date Type Department Care Team (Late st Contact Info) Description 01/20/2017 Telephone Gastroenterology at [facility] [place] [phone] Anastasia Walker RN Social History Tobacco Use Types Packs/Day [...] encounter Miscellaneous Notes * Telephone Encounter - Anastasia Walker RN - 01/20/2017 10:47 AM EST Caller: patient Callback #: [phone] Message: Pt reports - I have a low grade fever. I think it's 103. I have pain under breastbone that goes to both sides, it started yesterday morning when I woke up. Nothing makes it better. It's a 7or 8 on a scale of 0-10. I can't get comfortable. I tried some Tylenol at 8 am and my temperature hasn't changed much like maybe 102 at around 10 am. - able to ambulate, slight fatigue, does not seem in distress on phone - no appetite; denies N/V/D; - had toast and eggs for dinner last shad; bites of toast today with one glass of water - drinking tea this morning - hasn't been around anyone who has been ill - no longer taking oxycodone for knee/back pain, denies current pain other than bad pain under my breastbone that goes to both sides Pt says she has not called her pcp, in [place], today with these symptoms. Last saw him on 12-27-16 per patient. Encouraged her to call his office as well to update him / ask for urgent visit today OR best optionis to be driven to local ED for evaluation of symptoms. If pain worse, call 911. (Hx of splenic thrombus, see MD last note in November.) Pt verbalizes understanding of instructions. She will get a ride to ER at [facility] in [place]. documented in this encounter Plan of Treatment Upcoming Encounters Date Type Department Care Team (Late st Contact Info) Description 11/29/2024 1:30 PM EST Appointment XRay at [address] [place] [address] Laurent Cabrera MD [facility] [place] [address] 11/29/2024 2:20 PM EST Office Visit Orthopaedics at [facility] [place] [address] Laurent Cabrera MD [facility] [place] [address] documented as of this encounter Visit Diagnoses Not on filedocumented in this encounter Care Teams Clinical Researcher Relationship Specialty Start Date End Date Jayden Tijerina Jr., MD [address] [place] [phone] PCP - General Family Medicine 12/16/16 04/05/19 documented as of this encounter
--- OUTSIDE RECORDS SUMMARY | 2024-11-22 17:34 | XMS_ITS | Encounter Summary ---
Author Organization [facility] [place] [address] Care Team Providers Care Publications Editor Name Role Phone Lilliana Goyal MD, Jayden Leonardo Primary Care Provider + Reason for Visit * Reason Onset Date Comments Insomnia 10/24/2017 Encounter Details Date Type Department Care Team (Late st Contact Info) Description 10/24/2017 Telephone [place] [address] Sowmya Willis RN Insomnia Social History Tobacco Use Types Packs/Day Years [...] Miscellaneous Notes * Telephone Encounter - Lary Jaquez RN - 10/27/2017 4:56 PM EST Note faxed to Dr. Tijerina at per Dr. Smith's request. * Addendum Note - Lary Jaquez RN - 10/27/2017 2:09 PM ESTAddended by: LARY JAQUEZ on: 10/27/2017 02:09 PM Modules accepted: Orders * Telephone Encounter - Lary Jaquez RN - 10/27/2017 2:01 PM EST Patient returns call as requested. States please tell Dr. Smith I slept very well the last two nights. Phyliss taking increased dose of Amitriptyline 40 mg last two nights. She did not take Benadrylor Melatonin as she has tried in past without benefit. She requests new prescription with increaseddose. * Telephone Encounter - Sowmya Willis RN - 10/25/2017 5:[address] Smith: See if she has tried benadryl, if not try taking 25mg (OTC). If she has then try doubling amitryptilline for 2 nights. Patient states she has tried benadryl and melatonin in the past without success. Will take 40 mg amitryptiline x 2 nights, and call nurse line with update on 10/27. * Telephone Encounter - Sowmya Willis RN - 10/24/2017 2:08 PM EST I've been up for 5 nights straight, no sleep whatsoever. Per chart review, it appears that amitriptyline dose was increased to 20 mg in August. She is asking if this can be increased further. Feels that she has to be totally exhausted in orderto fall asleep. Years ago tried Ambien, but had a bad reaction. Hasn't tried anything else. No sleep study ever done that she recalls. Was supposed to see a new pcp in September. Told she is too complicated and needs a more experienced provider. Thus, she is now rescheduled for January 2018. documented in this encounter Plan of Treatment Upcoming Encounters Date Type Department Care Team (Late st Contact Info) Description 11/29/2024 1:30 PM EST Appointment XRay at [address] [place] [address] Laurent Cabrera MD [facility] [place] [address] 11/29/2024 2:20 PM EST Office Visit Orthopaedics at [facility] [place] [address] Laurent Cabrera MD [facility] [place] [address] documented as of this encounter Visit Diagnoses Diagnosis Chronic abdominal pain Abdominal pain, unspecified site documented in this encounter Care Teams Publications Editor Relationship Specialty Start Date End Date Jayden Tijerina Jr., MD [address] [place] [phone] PCP - General Family Medicine 12/16/16 04/05/19 documented as of this encounter
--- OUTSIDE RECORDS SUMMARY | 2024-11-22 17:34 | XMS_ITS | Encounter Summary ---
Author Organization [facility] Address [facility] [address] [place] [address] Care Team Providers Care Trashman Name Role Phone Dom Benson Primary Care Provider [phone] Encounter Details Date Type Department Care Team (Latest Contact Info) Description 12/08/2016 6:45 AM EST - 12/08/2016 10:18 AM EST Hospital Encounter Gastroenterology at [facility] [place] [phone] Ijeoma Smith MD [facility] [place] [address] Discharge Disposition: Home Social History Tobacco Use Types Packs/Day Years Used Date Smoking Tobacco: Some Days Cigarettes 0.5 30 Smokeless Tobacco: Never Tobacco Cessation:Ready to Q uit: No Comments:Working on cutting down. Alcohol Use Standard [...] Sign Reading Time Taken Comments Blood Pressure 120/75 12/08/2016 8:30 AM EST Pulse 70 12/08/2016 7:10 AM EST Temperature - - Respiratory Rate 16 12/08/2016 8:30 AM EST Oxygen Saturation 97% 12/08/2016 8:30 AM EST Inhaled Oxygen Concentration - - Weight 89.4 kg (197 lb) 12/08/2016 7:10 AM EST Height 165.1 cm (5' 5) 12/08/2016 7:10 AM EST Body Mass Index 32.78 12/08/2016 7:10 AM EST documented in this encounter Discharge Instructions * Discharge Instructions* Soni Russell RN - 12/08/2016 8:07 AM EST UPPER GI ENDOSCOPY WHAT TO EXPECT AFTER [...] better as expected. Tuesday-Tuesday Same Day Endo [phone] Otherwise contact [phone] and ask to speak to the picture enlarger section supervisor Follow-up care is a brown part of [...] daily. 04/18/2019 documented as of this encounter H&P Notes * Ijeoma Smith MD - 12/08/2016 7:20 AM EST Gastroenterology and Hepatology Pre-Procedure History and Physical Exam Procedure: EGD: Indication: screen for varices Patient Active Problem List [...] significance) D47.2 ??? Enlargement of spleen R16.1 EXAM: HEENT: Airway examined, oropharynx clear Mallampati [...] 11/29/2024 1:30 PM EST Appointment XRay at [address] [place] [address] Laurent Cabrera MD [facility] [place] [address] 11/29/2024 2:20 PM EST Office Visit [place] [address] Laurent Cabrera MD [facility] [place] [address] documented as of this encounter Procedures Procedure Name Priority Date/Time Associated Diagnosis Comments SURGICAL PATHOLOGY REPORT Routine 12/08/2016 7:59 AM EST SPECIMEN TO PATHOLOGY Routine 12/08/2016 7:59 AM EST UPPER GASTROINTESTINAL ENDOSCOPY,WITH BIOPSY SINGLE OR MULTIPLE (WRVU 2.39) 12/08/2016 7:46 AM EST recheck for varices; CT is scheduled for 11/29/16@2:00pm (consult) UPPER GI ENDOSCOPY Routine 12/08/2016 7: 35 AM EST documented in this encounter Results * Surgical Pathology Report (12/08/2016 7:59 AM EST) Final Diagnosis [id number] ?Location: 4T The signing pathologist has (i) examined the relevant preparation(s) for the specimen(s) and (ii) rendered or confirmed the diagnosis(es). . ?Surgical Pathology DIAGNOSIS Stomach, ??biopsy: Gastric antral gland mucosa with nonspecific reactive gastropathy. Gastric fundic mucosa within normal limits. No H. pylori-like microorganism is seen. Electronically signed by: ??Shauna Jay MD Verified: ??12/09/2016 ?Pathologist CLINICAL INFORMATION Specimen Submitted: A - Biopsies stomach Clinical History: Cirrhosis, gastric erosions Clinical Diagnosis: Same SPECIMEN PROCESSING A - Labeled/Fixative: Biopsy stomach, formalin. Quantity/Size: Three, ranging from 0.1-0.4 cm. Tissue Description: ??Soft, pascual tissues . Sections/Processi ng: (T1) ??sns 12/09/2016 10:28 AM EST [facility] GI Biopsy 12/08/2016 7:59 AM EST 12/08/2016 7:59 AM EST Ijeoma Smith MD PATHOLOGY/CYTOLOGY O LEANDRO Performing Organization Address [facility] [place] [address] * Specimen to Pathology (surgical or derm) (12/08/2016 7:59 AM EST) AP Specimen 12/08/2016 7:59 AM EST 12/08/2016 7:59 AM EST Narrative [facility] - 12/08/2016 7:59 AM EST Specimen requisition ordered. ??Separate Pathology report to follow Ijeoma Smith MD PATHOLOGY/CYTOLOGY Rafael REEVES Performing Organization Address [facility] [place] [address] * UPPER GI ENDOSCOPY (12/08/2016 7:35 AM EST) UPPER GI ENDOSCOPY [facility] Endoscopy Procedure Date: 12/08/2016 7:35 AM ? Patient Name: Tara Yun ? Date of : 1960 ? Age: 56 ? Order #: [id number] ? Instrument Name: [facility] [id number] ? Procedure: ? Upper GI endoscopy Indications: ? Heartburn, Cirrhosis with suspected ? esophageal varices Providers: ? Iejoma Smith MD, Arely Gaines, KENN, ? Arlette Sterling MD: ?Segundo Muñoz Medicines: ? Propofol per Anesthesia Complications: ? No immediate complications. Procedure: ? [...] the ? procedure well. ? Findings: ? The esophagus was normal. ? A few localized small erosions were found in the ? gastric antrum. Biopsies were taken with a cold ? forceps for histology. ? Mild portal hypertensive gastropathy was found in the ? gastric fundus and in the gastric body. Biopsies were ? taken with a cold forceps for histology. ? The examined duodenum was normal. ? Impression: ?- Normal esophagus. ? - Erosive gastropathy. Biopsied. ? - Portal hypertensive gastropathy. ? Biopsied. ? - Normal examined duodenum. Recommendation: ?- Await pathology results. ? Increase protonix to 40 bid for ? continued reflux symptoms. ? Stop carafate as it is not helping. ? Follow up in clinic. ? Attending Participation: ? I personally performed the entire procedure. ? Ijeoma Smith MD 12/08/2016 8:01:59 AM This report has been signed electronically. Number of Addenda: 0 Note Initiated On: 12/08/2016 7:35 AM PROVATION 12/08/2016 7:35 AM EST Loren Jiménez MD GENERAL SURGICAL ORD ERABLES [facility] documented [...] mL/hr New Bag 12/08/2016 7:39 AM EST documented in this encounter Active and Recently Administered Medications Times are shown in EST. Continuous Medication Order 12/06/2016 12/07/2016 12/08/2016 lactated ringers infusion (CANCELED) 100 mL/hr, Intravenous, CONTINUOUS, Starting on Tue12/08/16 at 0730, Until Tue12/08/16 at 0838, Endoscopy (Day of Procedure) 0739 (New Bag - Prov ider: Ruth Goldstein CRNA)0742 (New Bag - Provider: Soni Russell RN)0808 (Anesthesia Volume Adjustment - Provider: Ruth Goldstein CRNA) documented in this encounter Care Teams Trashman Relationship Specialty Start Date End Date WallyDom, [facility] [address] [place] [place] [phone] PCP - General Family Medicine 12/02/16 12/15/16 documented as of this encounter
--- OUTSIDE RECORDS SUMMARY | 2024-11-22 17:34 | XMS_ITS | Encounter Summary ---
Author Organization [facility] [place] [address] [place] [address] Care Team Providers Care Building Pressure Washer Name Role Phone Unavailable Primary Care Provider Unavailabl e Encounter Details Date Type Department Care Team (Late st Contact Info) Description 11/19/2016 [place] [phone] Lc Matthews Social History Tobacco Use Types Packs/Day Years [...] encounter Miscellaneous Notes * Telephone Encounter - Lc Matthews - 11/19/2016 2:38 PM EST Per Pt's request called her Transportation company ([phone]) and confirmed her ride for her appointment 11/23. documented in this encounter Plan of Treatment Upcoming Encounters Date Type Department Care Team (Late st Contact Info) Description 11/29/2024 1:30 PM EST Appointment XRay at [address] [place] [phone] Laurent Cabrera MD [facility] [place]OPA[place] [address] 11/29/2024 2:20 PM EST [place] [address] Laurent Cabrera MD [facility] [place] [address] documented as of this encounter Visit Diagnoses Not on filedocumented in this encounter
--- OUTSIDE RECORDS SUMMARY | 2024-11-22 17:34 | XMS_ITS | Encounter Summary ---
Author Organization [facility] Address [facility] [place] [place] [address] Care Team Providers Care Photographic Artist Name Role Phone Lilliana Goyal MD, Jayden Leonardo Primary Care Provider + Reason for Visit * Reason Comments Follow-up Encounter Details Date Type Department Care Team (Late st Contact Info) Description 08/31/2017 1:00 PM EDT Office Visit [place] [phone] Ijeoma Smith MD [facility] [place] [address] Chronic abdominal pain; Hepatic encephalopathy; 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; Glucose intolerance (impaired glucose tolerance) Social History Tobacco Use Types Packs/Day Years [...] Sign Reading Time Taken Comments Blood Pressure 135/78 08/31/2017 12:39 PM EDT Pulse 110 08/31/2017 12:39 PM EDT Temperature - - Respiratory Rate - - Oxygen Saturation - - Inhaled Oxygen Concentration - - Weight 97 kg (213 lb 12.8 oz) 08/31/2017 12:39 P M EDT Height 165.1 cm (5' 5) 08/31/2017 12:39 PM EDT Body Mass Index 35.58 08/31/2017 12:39 PM EDT documented in this encounter Progress Notes * Ijeoma Smith MD - 08/31/2017 1:00 PM EDT Gastroenterology and Hepatology Follow Up [...] of encephalopathy diagnsosis Portal Hypertension -EGD - 11/2016 portal hypertensive gastropathy. No varices. -Thrombocytopenia -Marked splenomegaly Last imaging: CT abd 11/2016 no liver lesions, markedly dilated splenic vein with partial thrombus 2. HCV Ab positive, RNA negative 2012 [...] issues Interval History: Gena comes in for Current Outpatient Prescriptions Medication Sig Dispense Refill ??? LYRICA 25 mg Capsule ??? amitriptyline (ELAVIL) 10 mg Tablet TAKE [...] every 4 hours as needed for Pain. (Patient not taking: Reported on 08/08/2017) 30 tablet 0 ??? fluticasone (FLOVENT) 110 mcg/actuation HFA Aerosol Inhaler Inhale 1 puff into the lungs 2 times daily. 1 Inhaler 3 ??? albuterol (PROAIR HFA) 90 mcg/actuation HFA Aerosol Inhaler Inhale 2 puffs into the lungs every6 hours as needed. Reported on 11/08/2016 (Patient not taking: Reported on 08/08/2017) 1 Inhaler 3 ??? levothyroxine (SYNTHROID) 25 [...] Reported on 08/08/2017) 12 tablet 0 ??? fluticasone (FLONASE) 50 mcg/actuation Thicket, Suspension 1 spray 2 times daily. Reported [...] No current facility-administered medications for this visit. There were no vitals filed for this visit. There is no height or weight on file to calculate BMI. Lab Results Component Value Date NA 143 08/08/2017 K 4.2 08/08/2017 CL 105 08/08/2017 CO2 27 08/08/2017 BUN 13 08/08/2017 CREATININE 0.77 08/08/2017 GLUCOSE 79 08/08/2017 CALCIUM 9.2 08/08/2017 Lab Results Component Value Date ALT 11 08/08/2017 AST 16 08/08/2017 ALKPHOS 84 08/08/2017 BILITOT 0.6 08/08/2017 BILIDIR 0.1 12/16/2016 ALBUMIN 4.2 08/08/2017 PROT 7.3 08/08/2017 Lab Results Component Value Date WBC 1.8 (CRIT) 08/08/2017 HGB 12.1 08/08/2017 HCT 36.7 08/08/2017 MCV 85.9 08/08/2017 PLATELET 41 (L) 08/08/2017 Lab Results Component Value Date INR 1.2 (H) 12/16/2016 Lab Results Component Value Date TSH 1.91 11/19/2016 MELD= Exam: Looks well Chest- clear Heart- RRR, nl s1, s2 Abd- normal bs's, soft, non tender, +splenomegaly Assessment and Plan: 57 y.o. female with cirrhosis likely due to QUIROZ with marked hypersplenism causing pancytopenia con history of hepatic encephalopathy. Ijeoma Smith MD Section of Gastroenterology & Hepatology [address] [place], [place] [id number] Greater than 50% of this 30 minute visit was spent in discussion. Cc: Jayden Tijerina Jr., MD * Ijeoma Smith MD - 08/31/2017 1:00 PM EDT Images from the original note were not included. Gastroenterology and Hepatology Follow Up Note Patient: Tara Yun : 1960 Provider: Ijeoma Smith MD Problem List: Cirrhosis Likely due to QUIROZ Diagnosed 2012 during ventral hernia repair when she also had low platelets No hx of liver biopsy Metabolic risk factors: obesity, hyperlipidemia Work up for causes of liver disease negative 2012 Complications of cirrhosis: Ascites- none Hepatic Encephalopathy -05/01/13 Treatment - initiallyu lactulose 30 cc BID -06/26/13 Increase Lactulose 30 cc TID and addition of Rifaximin -she was on psychotropic meds at time of encephalopathy diagnsosis Portal Hypertension -EGD 06/06/13 mild portal hypertensive gastropathy. No varices. - EGD 12/08/16 portal hypertensive gastropathy, no varices -Thrombocytopenia with progression to pancytopenia -Marked splenomegaly 2. HCV Ab positive, RNA negative 2012 [...] disabled for knee issues New job at [employer] Interval History: Ms. Yun returns for follow-up after recent multiple hospitalizations. She states that in the beginning of July she fainted and was sent by ambulance to [facility] and ended up being admitted there for a couple of days. She was told she had low blood pressure into the 70s (systolic). She was given fluids and got better, although she is unsure why this happened. She also was just recently at [facility] for an episode of hematuria and worked up for possible kidney stone. She sees urology there again for follow-up in September with plans for a a cystoscopy. She is concerned about her low platelet level and whether some day she will just keep bleeding. She bruises very easily. She saw Dr. Zeng last month and was told that her low cell counts are most likely dueto her liver disease and hypersplenism than from a blood disorder, since her bone marrow biopsy wasnormal. 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 She is no longer taking lactulose but needs a refill of rifaximin. She saw a new doctor recently who apparently did not want her to take the rifaximin because he didn't know what it is. She has since changed primary providers and will be seeing a Dr. Gracia in October. She would also like a refilltoday for amitriptyline and oxycodone. Current Outpatient Prescriptions Medication Sig Dispense Refill ??? amitriptyline (ELAVIL) 10 mg Tablet TAKE 1 TABLET BY MOUTH NIGHTLY. 30 tablet 0 ??? pantoprazole (PROTONIX) 40 mg [...] tablet 0 ??? fluticasone (FLONASE) 50 mcg/actuation Thicket, Suspension 1 spray 2 times daily. Reported on 11/09/2016 ??? albuterol (PROVENTIL) 2.5 mg /3 mL (0.083 %) Solution for Nebulization Take 2.5 mg by nebulization every 6 hours as needed. Reported on 11/08/2016 ??? RIFAXIMIN 550 mg Tablet take 1 tablet by mouth twice a day 60 tablet 3 ??? ERGOCALCIFEROL, VITAMIN D2, (VITAMIN D ORAL) Take 1,000 Units by mouth daily. ??? ALPRAZolam (XANAX) 0.5 mg tablet Take 0.5 mg by mouth nightly as needed. ??? DOCUSATE SODIUM (COLACE ORAL) Take by mouth daily as needed. Reported on 11/08/2016 ??? FERROUS SULFATE, DRIED (IRON, DRIED, ORAL) Take 65 mg by mouth 3 times daily. ??? ondansetron (ZOFRAN, HYDROCHLORIDE,) 4 mg Tablet Take 1-2 tablets by mouth every 8 hours as needed for Nausea. (Patient not taking: Reported on 08/08/2017) 12 tablet 0 ??? oxyCODONE (ROXICODONE) 5 mg Tablet Take 1 tablet by mouth every 4 hours as needed for Pain. (Patient not taking: Reported on 08/08/2017) 30 tablet 0 ??? sucralfate (CARAFATE) 100 mg/mL Suspension Take 10 mLs by mouth 4 times daily as needed. (Patient not taking: Reported on 08/08/2017) 420 mL 0 ??? lidocaine (LIDODERM) 5 % Adhesive Patch, Medicated Place 2 patches onto the skin daily. Apply 1patch onto the skin daily. (leave on for 12 hours and remove for 12 hours) ??? lactulose (CHRONULAC) 10 gram/15 mL solution Take 30 mLs by mouth 3 times daily. No current facility-administered medications for this visit. Vitals: 08/31/17 1239 BP: 135/78 Pulse: 110 Weight: 97 kg (213 lb 12.8 oz) Height: 165.1 cm (5' 5) Body mass index is 35.58 kg/(m^2). Exam: Looks well Chest- clear Heart- RRR, nl s1, s2 Abd- normal bs's, soft, non tender, +splenomegaly Lab Results Component Value Date NA 143 08/08/2017 K 4.2 08/08/2017 CL 105 08/08/2017 CO2 27 08/08/2017 BUN 13 08/08/2017 CREATININE 0.77 08/08/2017 GLUCOSE 79 08/08/2017 CALCIUM 9.2 08/08/2017 Lab Results Component Value Date ALT 11 08/08/2017 AST 16 08/08/2017 ALKPHOS 84 08/08/2017 BILITOT 0.6 08/08/2017 BILIDIR 0.1 12/16/2016 ALBUMIN 4.2 08/08/2017 PROT 7.3 08/08/2017 Lab Results Component Value Date WBC 1.8 (CRIT) 08/08/2017 HGB 12.1 08/08/2017 HCT 36.7 08/08/2017 MCV 85.9 08/08/2017 PLATELET 41 (L) 08/08/2017 Lab Results Component Value Date INR 1.2 (H) 12/16/2016 Lab Results Component Value Date TSH 1.91 11/19/2016 Labs @ [facility] Everywhere: CT abd/pelvis 08/24/17 @ [facility]: Impression: 1. Interval increase in the amount [...] Atherosclerosis. 8. Degenerative disease of the spine. US abdomen complete w/vascular today: IMPRESSION Shrunken nodular liver without focal mass. Stigmata ofportal venous hypertension characterized by splenomegaly, distended corticalveins. No ascites. 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 Assessment and Plan: 57 y.o. female with cirrhosis likely due to QUIROZ with marked hypersplenism causing pancytopenia con history of hepatic encephalopathy, now on rifaximin only without symptoms. It is unclear as to why she developed hypotension last month that caused what appears to be a syncopal episode, will inquire about records at [facility]. She should continue follow-up with urology at [facility] for hematuria. She is stable today from a liver perspective and today's ultrasound demonstrates kashmir size of her splenic vein thrombus. I have reviewed this scan at radiology conference and consensus was to follow this. We discussed that pancytopenia is from hypersplenism from liver disease. I am not sure she has or had hepatic encephalopathy. I think we could try having her stop rifaximinand see how she does. She asked me again to refill oxycodone 5mg, 30 tabs for long standing musculoskeletal pain. 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 She explained that she will be meeting with a pain provider on Sep 09 and new PCP in Oct. After discussion I gave her oxycodone 5mg, 30 tabs. I will not be refilling this. Recommendations: - Obtain report from [facility] - Follow up in 6mos with US/labs -Up to date on varices screening Ijeoma Smith MD Section of Gastroenterology & Hepatology [address] [place] [address] Greater than 50% of this 30 minute visit was spent in discussion. Cc: Jayden Tijerina Jr., MD documented in this encounter Plan of Treatment Upcoming Encounters Date Type Department Care Team (Late st Contact Info) Description 11/29/2024 1:30 PM EST Appointment XRay at [address] [place] [address] Laurent Cabrera MD [facility] OR[place] [address] 11/29/2024 2:20 PM EST Office [place] [address] Laurent Cabrera MD [facility] [place] [address] documented as of this encounter Visit Diagnoses Diagnosis Chronic abdominal pain Abdominal pain, unspecified site Hepatic encephalopathy 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 Other chronic nonalcoholic liver disease Glucose intolerance (impaired glucose tolerance) Impaired glucose tolerance test documented in this encounter Care Teams Photographic Artist Relationship Specialty Start Date End Date Jayden Tijerina Jr., MD [address] [place] [id number] PCP - General Family Medicine 12/16/16 04/05/19 documented as of this encounter
--- OUTSIDE RECORDS SUMMARY | 2024-11-22 17:34 | XMS_ITS | Encounter Summary ---
[place] [address] Care Team Providers Care Crt Name Role Phone Lilliana Goyal MD, Jayden Leonardo Primary Care Provider + Reason for Visit * Reason Onset Date Comments Prior Authorization 09/05/2017 Encounter Details Date Type Department Care Team (Late st Contact Info) Description 09/05/2017 Telephone [place] [phone] Carla Srinivasan CMA Prior Authorization Social History [...] Telephone Encounter - Carla Srinivasan CMA - 09/06/2017 8:56 AM EDT Called Wayne from the [facility] pharmacy to let them know her medication went through. Wayne ran a test claim, and the medication went through. * Telephone Encounter - Carla Srinivasan CMA - 09/05/2017 11:36 AM EDT Medication Prior Authorization 4L Gastroenterology / [place] [address] Subscriber Insurance: optum rx Physician: Ijeoma Smith Return Pharmacy: [facility] Medication Requested: Xifaxan Strength: 550 mg Frequency: BID Disp.: 60 Refills: 3 Currently taking: yes Diagnosis for this medication: hepatic encephalopathy ICD-10 code: K72.90 Prior medications trialed in this patient: lactulose Medication: Outcome/Adverse Reactions: diarrhea Decision: approved Tracking number/Case number/Reference number: [id number] Effective date: Start: End: 03/06/2018 documented in this encounter Plan of Treatment Upcoming Encounters Date Type Department Care Team (Late st Contact Info) Description 11/29/2024 1:30 PM EST Appointment XRay at [address] [place] [address] Laurent Cabrera MD [facility] [place] [address] 11/29/2024 2:20 PM EST Office Visit Orthopaedics at [facility] [place] [address] Laurent Cabrera MD [facility] [place] [address] documented as of this encounter Visit Diagnoses Not on filedocumented in this encounter Care Teams Crt Relationship Specialty Start Date End Date Jayden Tijerina Jr., MD [address] [place] [phone] PCP - General Family Medicine 12/16/16 04/05/19 documented as of this encounter
--- OUTSIDE RECORDS SUMMARY | 2024-11-22 17:34 | XMS_ITS | Encounter Summary ---
Author Organization [facility] [address] [place] [address] Care Team Providers Care Rn Internship Name Role Phone Lilliana Goyal MD, Jayden Leonardo Primary Care Provider + Reason for Visit * Reason Onset Date Comments Medication Refill 10/27/2017 Encounter Details Date Type Department Care Team (Late Contact Info) Description 10/27/2017 Refill [place] [phone] Ijeoma Smith MD [facility] [place] [address] Chronic abdominal pain Social History Tobacco Use [...] 11/29/2024 1:30 PM EST Appointment XRay at [address] [place] [phone] Laurent Cabrera MD [facility] [place] [address] 11/29/2024 2:20 PM EST Office [place] [address] Laurent Cabrera MD [facility] DR [place] [address] documented as of this encounter Visit Diagnoses Diagnosis Chronic abdominal pain Abdominal pain, unspecified site documented in this encounter Care Teams Rn Internship Relationship Specialty Start Date End Date Jayden Tijerina Jr., MD [address] [place] [phone] PCP - General Family Medicine 12/16/16 04/05/19 documented as of this encounter
--- OUTSIDE RECORDS SUMMARY | 2024-11-22 17:34 | XMS_ITS | Encounter Summary ---
Author Organization [facility] [place] [address] [place] [address] Care Team Providers Care Filter Cleaner Name Role Phone Lilliana Goyal MD, Jayden Leonardo Primary Care Provider + Reason for Visit * Reason Onset Date Comments Other 12/31/2016 out of medicatio n Encounter Details Date Type Department Care Team (Late st Contact Info) Description 12/31/2016 Telephone Gastroenterology at [facility] [place] [address] Sowmya Willis, RN Other (out of medication) Social History Tobacco Use Types Packs/Day [...] Telephone Encounter - Sowmya Willis RN - 12/31/2016 2:52 PM EST PCP in [place], Dr. Tijerina; saw him on Wednesday 12/27. Per patient, he would like to discuss pain management with Dr. Smith. Pt asks if he has called Dr. Smith to discuss medication, oxycodone 5 mg twice daily prn. Unclear exactly what question is, possibly as related to safety in the setting of liver disease. Pt states Tylenol does not help. We did discuss dose limits of up to 2 grams per 24 hours. She is unable to take nsaid's due to liver disease. Will d/w provider. documented in this encounter Plan of Treatment Upcoming Encounters Date Type Department Care Team (Late st Contact Info) Description 11/29/2024 1:30 PM EST Appointment XRay at [address] [place] [address] Laurent Cabrera MD [facility] [place] [address] 11/29/2024 2:20 PM EST Office Visit Orthopaedics at [facility] [place] [address] Laurent Cabrera MD [facility] [place] [address] documented as of this encounter Visit Diagnoses Not on filedocumented in this encounter Care Teams Filter Cleaner Relationship Specialty Start Date End Date Jayden Tijerina Jr., MD [address] [place] [address] PCP - General Family Medicine 12/16/16 04/05/19 documented as of this encounter
--- OUTSIDE RECORDS SUMMARY | 2024-11-22 17:34 | XMS_ITS | Encounter Summary ---
Author Organization [facility] Address [facility] [place] [address] [place] [address] Care Team Providers Care Campaign Fundraiser Name Role Phone Loren Jiménez MD Primary Care Provider [phone] Reason for Referral * Diagnostic Test (Routine) - Closed Specialty Diagnoses / Procedures Referred By Serene huitron Referred To Contact Radiology Diagnoses Splenomegaly Splenic vein thrombosis Procedures CT Abdomen w Contrast Ijeoma Smith MD [facility] [place] [address] [facility] [place] [address] Referral ID Status Reason Start Date Expiration Date V isits Requested Visits Authorized [id number] Closed Specialty Service Requested 11/18/2016 11/18/2017 1 1 Encounter Details Date Type Department Care Team (Late st Contact Info) Description 11/18/2016 Orders [place] [address] Ijeoma Smith MD [facility] [place] [address] Splenomegaly; Splenic vein thrombosis Social History Tobacco Use [...] 1:30 PM EST Appointment XRay at [address] [place] [address] Laurent Cabrera MD [facility] [place]THOPA[place] [address] 11/29/2024 2:20 PM EST Office Visit Orthopaedics at [facility] [place] [address] Laurent Cabrera MD [facility] [place] [address] documented as of this encounter Results * CT Abdomen w Contrast (12/16/2016 2:06 PM EST) Anatomical Region Laterality Modality Abdomen Computed Tomogra phy Impressions 12/16/2016 2:22 PM EST 1. ??Stable proximal portal vein and distal splenic vein thrombus. Stable splenomegaly. 2. ??Mild cirrhotic changes in liver. Narrative 12/16/2016 2:22 PM EST EXAMINATION: ??CT ABDOMEN W CONTRAST CLINICAL HISTORY: ??splenomegaly; re-evaluate newly discovered thrombus in a dilated splenic vein TECHNIQUE: Helical CT of the abdomen was performed following the intravenous administration of contrast. ??110 cc of Omnipaque 350 was given. Oral contrast was administered. COMPARISON: ??November 17, 2016 FINDINGS: Liver: ??Normal. Stable. No hepatomegaly. No hepatic lesions. The intrahepatic vessels are patent. While nodularity of the hepatic capsule, compatible mild cirrhotic change. Bile ducts: ??Nondilated. Gallbladder: ??History absent Pancreas: ??Mildly atrophic. Stable. Spleen: ??Enlarged but stable, measuring 20 cm in cranial to caudal dimension. Stable small splenic hypodensities. Adrenal: ??Normal. Kidneys: ??Normal. Lymph nodes: ??No enlarged lymph nodes. Bowel: Nondilated, no inflammatory changes. Peritoneum: ??Post anterior abdominal wall hernia repair. No evidence of complication. No hernia recurrence. Vasculature: As noted previously, the proximal portal vein is occluded by thrombus. The thrombus extends to the level of the portal confluence with thrombus in the distal splenic vein. The splenic vein is severely dilated, as noted previously. Portal vein is also markedly dilated. Osseous structures: No suspicious lesions. Procedure Note Anthony Ochoa MD - 12/16/2016 EXAMINATION: CT ABDOMEN W CONTRAST CLINICAL HISTORY: splenomegaly; re-evaluate newly discovered thrombus suzanne dilated splenic vein TECHNIQUE: Helical CT of the abdomen was performed following theintravenous administration of contrast. 110 cc of Omnipaque 350 was given. Oralcontrast was administered. COMPARISON: November 17, 2016 FINDINGS: Liver: Normal. Stable. No hepatomegaly. No hepatic lesions. Theintrahepatic vessels are patent. While nodularity of the hepatic capsule, compatiblemild cirrhotic change. Bile ducts: Nondilated. Gallbladder: History absent Pancreas: Mildly atrophic. Stable. Spleen: Enlarged but stable, measuring 20 cm in cranial to caudaldimension. Stable small splenic hypodensities. Adrenal: Normal. Kidneys: Normal. Lymph nodes: No enlarged lymph nodes. Bowel: Nondilated, no inflammatory changes. Peritoneum: Post anterior abdominal wall hernia repair. No evidence of complication. No hernia recurrence. Vasculature: As noted previously, the proximal portal vein is occludedby thrombus. The thrombus extends to the level of the portal confluencewith thrombus in the distal splenic vein. The splenic vein is severely dilated,as noted previously. Portal vein is also markedly dilated. Osseous structures: No suspicious lesions. IMPRESSION 1. Stable proximal portal vein and distal splenic vein thrombus. Stable splenomegaly. 2. Mild cirrhotic changes in liver. Ijeoma Smith MD IMG CT ORDERABLES documented in this encounter Visit Diagnoses Diagnosis Splenomegaly Splenic vein thrombosis Other diseases of spleen Splenomegaly Splenic vein thrombosis Other diseases of spleen documented in this encounter Care Teams Campaign Fundraiser Relationship Specialty Start Date End Date Loren Jiménez MD [facility] [place] [address] PCP - General Family Medicine 11/04/16 11/18/16 documented as of this encounter
--- OUTSIDE RECORDS SUMMARY | 2024-11-22 17:34 | XMS_ITS | Encounter Summary ---
Author Organization [facility] [place] [address] [place] [address] Care Team Providers Care Nail Mill Worker Name Role Phone Unavailable Primary Care Provider Unavailabl e Encounter Details Date Type Department Care Team (Late st Contact Info) Description 11/19/2016 Telephone [place] [phone] Anastasia Walker, RN Social History Tobacco Use Types Packs/Day [...] Encounter - Katherin Moody RN - 11/19/2016 1:38 PM EST Spoke to patient who verified full name and . Explained to patient COS unwilling to refill Oxycodone. If LUQ pain persists per GI, patient to return to ED. Pt aware. Pt currently at work and unable to get the evening off. Pt aware of need to go back to ED if symptoms continue. * Telephone Encounter - Anastasia Walker RN - 11/19/2016 11:17 AM EST Pt calls again today: They told me in the ER to see Dr.Sarah sooner than later because I have a clot, and I'm very nervous and still have pain and nausea, and I'm all out of the pain and nausea medicine, and I want to know what to do. I haven't called my primary care doctor. - rev'd chart: Recent ED visit 11-17, [...] pain management, no GIF appt yet here. - takes oxycodone 4 tabs per day, has 2 tabs left. - takes Zofran and only has 2 left - I'm not eating much, I get diarrhea and it pours out of me, my urine is dark, and I threw up once yesterday. I can drink fluids a bit but I can't eat anything, I'm so nauseous. Advised her if she is having continued LUQ pain and nausea, vomiting and diarrhea, needs to return to ED for eval and care / possible IV fluids for hydration, etc. Pt verbalizes understanding of instructions and will get ride to ED. documented in this encounter Plan of Treatment Upcoming Encounters Date Type Department Care Team (Late st Contact Info) Description 11/29/2024 1:30 PM EST Appointment XRay at [address] [place] [address] Laurent Cabrera MD [facility] [place]THOPAEDIC [place] [address] 11/29/2024 2:20 PM EST Office Visit Orthopaedics at [facility] [place] [address] Laurent Cabrera MD [facility] [place] [address] documented as of this encounter Visit Diagnoses Not on filedocumented in this encounter
--- OUTSIDE RECORDS SUMMARY | 2024-11-22 17:34 | XMS_ITS | Encounter Summary ---
Author Organization [facility] Address [facility] [place] [place] [address] Care Team Providers Care Butadiene Compressor Operator Name Role Phone Dom Benson Primary Care Provider [phone] Encounter Details Date Type Department Care Team (Late st Contact Info) Description 12/08/2016 7:30 AM EST - 12/08/2016 8:00 AM EST Surgery [place] [phone] Ijeoma Smith MD [facility] [place] [address] UPPER GASTROINTESTINAL ENDOSCOPY,WITH BIOPSY SINGLE OR MULTIPLE (WRVU 2.39) Social History Tobacco Use Types [...] better as expected. Tuesday-Tuesday Same Day Endo [phone] Otherwise contact [phone] and ask to speak to the jewel hole rough opener brickmason apprentice Follow-up care is a brown part of [...] 1:30 PM EST Appointment XRay at [address] [place] [address] Laurent Cabrera MD [facility] [place] [address] 11/29/2024 2:20 PM EST Office Visit Orthopaedics at [facility] [place] [address] Laurent Cabrera MD [facility] [place] [address] documented as of this encounter Procedures Procedure [...] Report (12/08/2016 7:59 AM EST) Final Diagnosis [id number] ?Location: 4T The signing pathologist has (i) [...] ng: (T1) ??sns 12/09/2016 10:28 AM EST [facility] GI Biopsy 12/08/2016 7:59 AM EST 12/08/2016 7:59 AM EST Ijeoma Smith MD PATHOLOGY/CYTOLOGY O [place]ANDRO Performing Organization Address [facility] [place] [address] * Specimen to Pathology (surgical or derm) (12/08/2016 7:59 AM EST) AP Specimen 12/08/2016 7:59 AM EST 12/08/2016 7:59 AM EST Narrative [facility] - 12/08/2016 7:59 AM EST Specimen requisition ordered. ??Separate Pathology report to follow Ijeoma Smith MD PATHOLOGY/CYTOLOGY O LEANDRO Performing Organization Address [facility] [place] [address] * UPPER GI ENDOSCOPY (12/08/2016 7:35 AM EST) UPPER GI ENDOSCOPY [facility] Endoscopy Procedure Date: 12/08/2016 7:35 AM ? Patient Name: Phyliss Yun ? Date of : 1960 ? Age: 56 ? Order #: [id number] ? Instrument Name: [facility] [id number] ? Procedure: ? Upper GI endoscopy Indications: ? Heartburn, Cirrhosis with suspected ? esophageal varices Providers: ? Ijeoma Smith MD, Arely Gaines RN, ? Arlette Sterling MD: ?Segundo Muñoz Medicines: [...] CRNA) documented in this encounter Care Teams Butadiene Compressor Operator Relationship Specialty Start Date End Date Dom Benson, [facility] [place] [address] PCP - General Family Medicine 12/02/16 12/15/16 documented as of this encounter
--- OUTSIDE RECORDS SUMMARY | 2024-11-22 17:34 | XMS_ITS | Encounter Summary ---
Author Organization [facility] [place] [address] Care Team Providers Care Pigs Feet Finisher Name Role Phone Lilliana Goyal MD, Jayden Leonardo Primary Care Provider + Reason for Referral * Diagnostic Test (Routine) - Closed Specialty Diagnoses / Procedures Referred By Contac t Referred To Contact Radiology Diagnoses Splenomegaly Splenic vein thrombosis Procedures CT Abdomen w Contrast Ijeoma Smith MD [facility] [place] [place] [address] [facility] [place] [address] Referral ID Status Reason Start Date Expiration Date V isits Requested Visits Authorized [id number] Closed Specialty Service Requested 11/18/2016 11/18/2017 1 1 Reason for Visit * Diagnostic Test (Routine) - Closed Specialty Diagnoses / Procedures Referred By Contac t Referred To Contact Radiology Diagnoses Splenomegaly Splenic vein thrombosis Procedures CT Abdomen w Contrast Ijeoma Smith MD [facility] [place] [address] [facility] [place] [address] Referral ID Status Reason Start Date Expiration Date V isits Requested Visits Authorized [id number] Closed Specialty Service Requested 11/18/2016 11/18/2017 1 1 Encounter Details Date Type Department Care Team (Latest Contact Info) Description 12/16/2016 12:35 PM EST - 12/16/2016 2:23 PM EST Hospital [facility] [place] [address] Ijeoma Smith MD [facility] [place] [address] Splenomegaly; Splenic vein thrombosis Discharge Disposition: Home Social History Tobacco Use [...] 11/29/2024 1:30 PM EST Appointment XRay at [address] [place] [address] Laurent Cabrera MD [facility] [place] [address] 11/29/2024 2:20 PM EST Office Visit Orthopaedics at [facility] [place] [address] Laurent Cabrera MD [facility] [place] [address] documented as of this encounter Procedures Procedure Name Priority Date/Time Associated Diagnosis Comments CT ABDOMEN W CONTRAST Routine 12/16/2016 2:06 PM EST Splenomegaly Splenic vein thrombosis documented in this encounter Results * CT Abdomen w [...] MAR Action Action Date Dose Rate Site iohexol (OMNIPAQUE) 350 mg/mL solution 38,500 mg 38,500 mg (110 mL), Intravenous, ONCE PRN, 1 dose, Starting on Kirsten 12/16/16 at 1406, Until Kirsten 12/16/16 at 1406, Per Protocol, Warning Vesicant/Irritant Medication , Routine Given 12/16/2016 2:06 PM EST 38,500 mg documented in this encounter Care Teams Pigs Feet Finisher Relationship Specialty Start Date End Date Jayden Tijerina Jr., MD [address] [place] [address] PCP - General Family Medicine 12/16/16 04/05/19 documented as of this encounter
--- OUTSIDE RECORDS SUMMARY | 2024-11-22 17:34 | XMS_ITS | Encounter Summary ---
Author Organization [facility] Address [facility] [place] [place] [address] Care Team Providers Care Pocket Marker Name Role Phone Lilliana Goyal MD, Jayden Leonardo Primary Care Provider + Encounter Details Date Type Department Care Team (Late st Contact Info) Description 07/26/2017 Telephone Hematology [place] [address] Hi Euceda MD [facility] DR HEMATOLOGY/[place] [address] Social History Tobacco Use Types Packs/Day Years [...] encounter Miscellaneous Notes * Telephone Encounter - Hi Euceda - 07/26/2017 7:03 PM EDT Patient with QUIROZ cirrhosis, chronic Hep C (viral load <15 in 2016), MGUS who presented to [facility] with syncope, subsequently noted to be orthostatic in the ED. Patient was apparently in normal state of health prior to this event. 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 Patient WBC 1, Hgb 12, Plt 43, with N 72%. All other labs, including Calcium, Albumin, and LFT's were WNL. No signs of infection but patient did have hematuria noted on UA. CT abdomen was done that showed no kidney stones or any other acute changes besides her known cirrhosis and splenomegaly. The patient was evaluated by Dr. 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 The patient had a BM biopsy in 2012at did not reveal any pathology. Given hx of MGUS, the patient had an SPEP done in October as well that showed no more M-spike. The patient's most recent labs from 12/16/[address] [facility] showed WBC 2.0, Hgb 13.2, Plt 55. Given that the patient's labs in the ED today are not drastically different than her labs from November, there does not seem to be an acute hematological process going on. I recommended that the ED physician continue workup for syncope and consider other etiologies such as cardiac as well. Furthermore, regarding the hematuria on UA, the patient has had hematuria before in the setting of kidney stones and despite the negative CT abdomen, I suggested that the ED physician may want to consider a bladder US as well to further evaluate. At this time, the patient can follow up with our Hematology clinic upon discharge as requested by the ED physician. The case was discussed with Dr. Escalera (on-call game tester) documented in this encounter Plan of Treatment Upcoming Encounters Date Type Department Care Team (Late st Contact Info) Description 11/29/2024 1:30 PM EST Appointment XRay at [address] [place] [address] Laurent Cabrera MD [facility] [place] [address] 11/29/2024 2:20 PM EST Office Visit Orthopaedics at [facility] [place] [address] Laurent Cabrera MD [facility] [place] [address] documented as of this encounter Visit Diagnoses Not on filedocumented in this encounter Care Teams Pocket Marker Relationship Specialty Start Date End Date Jayden Tijerina Jr., MD [address] [place] [address] PCP - General Family Medicine 12/16/16 04/05/19 documented as of this encounter
--- OUTSIDE RECORDS SUMMARY | 2024-11-22 17:34 | XMS_ITS | Encounter Summary ---
Author Organization [facility] Address [facility] [place] [address] [place] [address] Care Team Providers Care Freelance Operator Name Role Phone Lilliana Goyal MD, Jayden Leonardo Primary Care Provider + Reason for Visit * Reason Onset Date Comments No Show 12/23/2016 Encounter Details Date Type Department Care Team (Late Contact Info) Description 12/23/2016 Telephone Family Medicine at [facility] [address] [place] [address] Radha Steele No Show Social History Tobacco Use Types [...] Miscellaneous Notes * Telephone Encounter - Radha Steele - 12/23/2016 3:11 PM EST Patient no-showed 12/15/16 appointment. Per no show policy, I Called to do a safety check on patient and to reschedule no showed appointment. Reminded patient to call Primary care office to cancel appointment prior to the appointment time documented in this encounter Plan of Treatment Upcoming Encounters Date Type Department Care Team (Late Contact Info) Description 11/29/2024 1:30 PM EST Appointment XRay at [address] [place] [address] Laurent Cabrera MD [facility] [place] [address] 11/29/2024 2:20 PM EST Office [place] [address] Laurent Cabrera MD [facility] [place] [address] documented as of this encounter Visit Diagnoses Not on filedocumented in this encounter Care Teams Freelance Operator Relationship Specialty Start Date End Date Jayden Tijerina Jr., MD [address] [place] [address] PCP - General Family Medicine 12/16/16 04/05/19 documented as of this encounter
--- OUTSIDE RECORDS SUMMARY | 2024-11-22 17:34 | XMS_ITS | Encounter Summary ---
Author Organization [facility] [place] [place] [place] [address] Care Team Providers Care Export Coordinator Name Role Phone Loren Jiménez MD Primary Care Provider [phone] Reason for Visit * Reason Onset Date Comments Splenomegaly 11/18/2016 Encounter Details Date Type Department Care Team (Late Contact Info) Description 11/18/2016 Telephone Gastroenterology at [facility] [place] [address] Sowmya Willis RN Splenomegaly Social History Tobacco Use Types Packs/Day Years [...] Telephone Encounter - Sowmya Willis RN - 11/18/2016 10:10 AM EST Pt calling in follow up to her ER visit, per Dr. Ramos who evaluated her last evening. She is feeling better after IV fluids and antiemetic, and has taken one tablet of oxycodone which is keeping her comfortable today. Advised her that an inquiry has been set to Dr. Smith regarding timing of clinic follow up visit. documented in this encounter Plan of Treatment Upcoming Encounters Date Type Department Care Team (Late Contact Info) Description 11/29/2024 1:30 PM EST Appointment XRay at [address] [place] [address] Laurent Cabrera MD [facility] [place] [address] 11/29/2024 2:20 PM EST Office Visit Orthopaedics at [facility] [place] [address] Laurent Cabrera MD [facility] [place] [address] documented as of this encounter Visit Diagnoses Not on filedocumented in this encounter Care Teams Export Coordinator Relationship Specialty Start Date End Date Loren Jiménez MD [facility] [address] [place] [place] [address] PCP - General Family Medicine 11/04/16 11/18/16 documented as of this encounter
--- OUTSIDE RECORDS SUMMARY | 2024-11-22 17:34 | XMS_ITS | Encounter Summary ---
Author Organization [facility] [place] [place] [address] Care Team Providers Care Charge Hand Name Role Phone Lilliana Goyal MD, Jayden Leonardo Primary Care Provider + Reason for Visit * Reason Comments Medication Refill Encounter Details Date Type Department Care Team (Late Contact Info) Description 04/26/2017 Refill Gastroenterology at [place] [phone] Ijeoma Smith MD [facility] [address] Chronic abdominal pain Social History Tobacco Use [...] 11/29/2024 1:30 PM EST Appointment XRay at [address] [place] [address] Laurent Cabrera MD [facility] [place] [address] 11/29/2024 2:20 PM EST Office [place] [address] Laurent Cabrera MD [facility] [place] [address] documented as of this encounter Visit Diagnoses Diagnosis Chronic abdominal pain Abdominal pain, unspecified site documented in this encounter Care Teams Charge Hand Relationship Specialty Start Date End Date Jayden Tijerina Jr., MD [address] [place] [address] PCP - General Family Medicine 12/16/16 04/05/19 documented as of this encounter
--- OUTSIDE RECORDS SUMMARY | 2024-11-22 17:34 | XMS_ITS | Encounter Summary ---
Author Organization [facility] [place] [address] [place] [address] Care Team Providers Care Flight Operations Dispatch Clerk Name Role Phone Alma Farfan MD Primary Care Provider [phone] Reason for Visit * Reason Comments Medication Refill Encounter Details Date Type Department Care Team (Late st Contact Info) Description 08/31/2017 [place] [address] Ijeoma Smith MD [facility] [place] [address] Chronic abdominal pain Social History [...] 1:30 PM EST Appointment XRay at [address] [place] [address] Laurent Cabrera MD [facility] [place] [address] 11/29/2024 2:20 PM EST Office [place] [address] Laurent Cabrera MD [facility] [place] [address] documented as of this encounter Visit Diagnoses Diagnosis Chronic abdominal pain Abdominal pain, unspecified site documented in this encounter Care Teams Flight Operations Dispatch Clerk Relationship Specialty Start Date End Date Alma Farfan MD [address] [place] [phone] PCP - General Family Medicine 04/06/19 11/04/24 documented as of this encounter
--- OUTSIDE RECORDS SUMMARY | 2024-11-22 17:35 | XMS_ITS | Encounter Summary ---
Author Organization [facility] [place] [address] [place] [address] Care Team Providers Care Implementation Services Analyst Name Role Phone Loren Jiménez MD Primary Care Provider [phone] Reason for Visit * Reason Onset Date Comments Back Pain 11/17/2016 Encounter Details Date Type Department Care Team (Late Contact Info) Description 11/17/2016 Telephone Gastroenterology at [facility] [place] [phone] Sowmya Willis RN Back Pain Social History Tobacco Use Types [...] Telephone Encounter - Sowmya Willis RN - 11/17/2016 9:40 AM EST Pt calling about pain management. Per Dr. Smith: I had told her that pcp and pain clinic would manage this and not me. I said once daily narcotic was safe from liver perspective, but I don't want to be the prescriber. Will ask that Dr. Jiménez's office follow up with this patient today. documented in this encounter Plan of Treatment Upcoming Encounters Date Type Department Care Team (Late st Contact Info) Description 11/29/2024 1:30 PM EST Appointment XRay at [address] [place] [address] Laurent Cabrera MD [facility] [place] [address] 11/29/2024 2:20 PM EST Office Visit Orthopaedics at [facility] [place] [address] Laurent Cabrera MD [facility] [place] [address] documented as of this encounter Visit Diagnoses Not on filedocumented in this encounter Care Teams Implementation Services Analyst Relationship Specialty Start Date End Date Loren Jiménez MD [facility] [address] [facility] [place] [address] PCP - General Family Medicine 11/04/16 11/18/16 documented as of this encounter
--- OUTSIDE RECORDS SUMMARY | 2024-11-22 17:35 | XMS_ITS | Encounter Summary ---
Author Organization [facility] [place] [address] [place] [address] Care Team Providers Care Blogs Manager Name Role Phone Emigdio Centeno MD Primary Care Provider [phone] Encounter Details Date Type Department Care Team (Late st Contact Info) Description 01/28/2015 Telephone Gastroenterology at [facility] [place] [phone] America Michelle Social History Tobacco Use Types Packs/Day Years Used Date Smoking Tobacco: Every Day Cigarettes 0.5 30 Comments:Working on cutting down. Alcohol Use Standard [...] * Telephone Encounter - America Shepard - 01/28/2015 2:10 PM EDT Patient states that she had moved to [place], [place] and will be establishing care in that area instead of traveling down here for her care. She is following up with Medical records to have her records sent to her new primary care doctor. documented in this encounter Plan of Treatment Upcoming Encounters Date Type Department Care Team (Late st Contact Info) Description 11/29/2024 1:30 PM EST Appointment XRay at [address] [place] [address] Laurent Cabrera MD [facility] [place] [address] 11/29/2024 2:20 PM EST Office [place] [address] Laurent Cabrera MD [facility] [place] [address] documented as of this encounter Visit Diagnoses Not on filedocumented in this encounter Care Teams Blogs Manager Relationship Specialty Start Date End Date Emigdio Centeno MD [address] [place] [address] PCP - General 03/27/13 07/08/16 documented as of this encounter
--- OUTSIDE RECORDS SUMMARY | 2024-11-22 17:35 | XMS_ITS | Encounter Summary ---
Author Organization [facility] Address [facility] [place] [address] [place] [address] Care Team Providers Care Pinion Polisher Name Role Phone Lilliana Goyal MD, Jayden Leonardo Primary Care Provider + Reason for Visit * Reason Onset Date Comments Follow-up 11/04/2016 ED f/u Encounter Details Date Type Department Care Team (Late st Contact Info) Description 11/04/2016 Telephone Family Medicine at [facility] [address] [place] [phone] Lashanda Leonardo Follow-up (ED f/u) Social History Tobacco Use Types Packs/Day Years [...] encounter Miscellaneous Notes * Telephone Encounter - Kenisha Weeks MD - 11/04/2016 3:13 PM EST Yes - on chart review, this pt has known cytopenias and is seeing heme on 11/08 before she sees me. Thanks! KENISHA WEEKS MD * Telephone Encounter - Lashanda Leonardo - 11/04/2016 12:58 PM EST Message: Patient went to ED yesterday and was told she needed a PCP and needed to f/u for low platelet count. Was able to schedule her with Dr. Weeks on 11/09. Patient is okay with this date/time, please call patient if additional triage/an earlier appointment date is required. Caller and relationship (if other than patient-full name): patient Nurse contacted via: Message: yes Call: no Pager: no Note: I have sent two quick faxes to try and obtain records. documented in this encounter Plan of Treatment Upcoming Encounters Date Type Department Care Team (Late st Contact Info) Description 11/29/2024 1:30 PM EST Appointment XRay at [address] [place] [address] Laurent Cabrera MD [facility] [place] [address] 11/29/2024 2:20 PM EST Office Visit Orthopaedics at [facility] [place] [address] Laurent Cabrera MD [facility] [place] [address] documented as of this encounter Visit Diagnoses Not on filedocumented in this encounter Care Teams Pinion Polisher Relationship Specialty Start Date End Date Jayden Tijerina Jr., MD [address] [place] [id number] PCP - General Family Medicine 12/16/16 04/05/19 documented as of this encounter
--- OUTSIDE RECORDS SUMMARY | 2024-11-22 17:35 | XMS_ITS | Encounter Summary ---
Author Organization [facility] [place] [address] [place] [address] Care Team Providers Care Superintendent Recreation Name Role Phone Emigdio Centeno MD Primary Care Provider [phone] Encounter Details Date Type Department Care Team (Late st Contact Info) Description 04/29/2014 Telephone Gastroenterology at [facility] [place] [phone] Kate Jimenez, RN Social History Tobacco Use Types Packs/Day [...] Miscellaneous Notes * Telephone Encounter - Kate Jimenez, RN - 04/29/2014 12:40 PM EDT Call from patient asking Kory Mark NP if she can move forward with hernia surgery. She is in pain much of the time and does not like to rely on pain meds. Patient would like to have a local surgeon perform the surgery. Note 04/02: A 53 year old female with h/o multiple abdominal operations including open cholecystectomy and ventral hernia formation at that site, s/p repair about one year ago. Increasing discomfort/pain from that site. The patient is obese, though she has been loosing weight. She presents to clinicfor evaluation. No clear hernia on examination, images do not suggest an hernia as well. Can though not exclude dueto body habitus and also that on the images the mesh overlap over the area is limited, possible migration of the mesh. We discussed that an repeat operation would have a very high risk of recurrence.Reccommended waiting for now and further weight loss. If symptoms progress repeat evaluation on clinic in regards to surgical intervention. The patient expressed understanding and agreement. Will forward to Jerad Mark NP replies: Because she has cirrhosis of the liver, she would need to have hernia surgery here or at another large center capable of managing complications should her liver disease become decompensated after the surgery. I would take Dr. Lazo's recommendations very seriously. Call to patient with this information, and she agrees. documented in this encounter Plan of Treatment Upcoming Encounters Date Type Department Care Team (Late st Contact Info) Description 11/29/2024 1:30 PM EST Appointment XRay at [address] [place] [address] Laurent Cabrera MD [facility] ORTHOPAEDIC [place] [address] 11/29/2024 2:20 PM EST Office Visit Orthopaedics at [facility] [place] [address] Laurent Cabrera MD [facility] ORTHOPAEDIC [place] [address] documented as of this encounter Visit Diagnoses Not on filedocumented in this encounter Care Teams Superintendent Recreation Relationship Specialty Start Date End Date Emigdio Centeno MD [address] [place] [phone] PCP - General 03/27/13 07/08/16 documented as of this encounter
--- OUTSIDE RECORDS SUMMARY | 2024-11-22 17:35 | XMS_ITS | Encounter Summary ---
Author Organization [facility] [address] [place] [address] Care Team Providers Care Dry Color Tester Name Role Phone Loren Jiménez MD Primary Care Provider [phone] Encounter Details Date Type Department Care Team (Late st Contact Info) Description 11/17/2016 Telephone Gastroenterology at [facility] [place] [place] [address] Sowmya Willis RN Social History Tobacco [...] Encounter - Sowmya Willis RN - 11/17/2016 2:02 PM EST Opened in error. documented in this encounter Plan of Treatment Upcoming Encounters Date Type Department Care Team (Late st Contact Info) Description 11/29/2024 1:30 PM EST Appointment XRay at [address] [place] [address] Laurent Cabrera MD [facility] [place] [address] 11/29/2024 2:20 PM EST Office [place] [address] Laurent Cabrera MD [facility] [place] [address] documented as of this encounter Visit Diagnoses Not on filedocumented in this encounter Care Teams Dry Color Tester Relationship Specialty Start Date End Date Loren Jiménez MD [facility] [address] [facility] [place] [address] PCP - General Family Medicine 11/04/16 11/18/16 documented as of this encounter
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
--- OUTSIDE RECORDS SUMMARY | 2024-11-22 17:35 | XMS_ITS | Encounter Summary ---
Author Organization [facility] [place] [address] [place] [address] Care Team Providers Care Blood Bank Technologist Name Role Phone Unknown Primary Care Provider Unavailabl e Reason for Visit * Reason Comments Chest Pain Encounter Details Date Type Department Care Team (Late st Contact Info) Description 10/06/2016 5:17 PM EST - 10/06/2016 11:25 PM EST Emergency Emergency Department [facility] [place] [phone] Espinoza Urias MD Flank pain; Atypical chest pain Discharge Disposition: Home Social History Tobacco Use [...] Sign Reading Time Taken Comments Blood Pressure 112/66 10/06/2016 10:00 PM EST Pulse 77 10/06/2016 11:00 PM EST Temperature 36.6 ??C (97.9 ??F) 10/06/2016 5:23 PM ES T Respiratory Rate 15 10/06/2016 11:00 PM EST Oxygen Saturation 97% 10/06/2016 11:00 PM EST Inhaled Oxygen Concentration - - Weight - - Height - - Body Mass Index - - documented in this encounter Discharge Instructions * Discharge Instructions* Karol Elliott - 10/06/2016 10:59 PM EST Please return to the emergency department for any concerning symptoms such as return of or worsening of your chest pain, shortness of breath, lightheadedness, loss of consciousness, inability to voidurine normally. You to drink plenty of fluids to help flush your urinary system. Though no stone is visualized on CT scan today, it seems likely that you may have just passed one given your pain and blood in your urine. Take prescribed pain medication oxycodone sparingly as needed over the next day for relief of severe acute pain. Follow-up with her primary care provider within the next several days for ongoing care and evaluation. They should want to monitor to ensure resolution of your blood in the urine. If your urine culture comes back positive you will be notified and appropriate antibiotics will be prescribed. * Attachments The following attachments cannot be sent through Care Everywhere. * FLANK PAIN (VENEZUELAN) * CHEST PAIN (VENEZUELAN) documented in this encounter Medications at Time of Discharge Medication Sig Dispensed Refills Start Date End Date oxyCODONE (ROXICODONE) 5 mg Tablet Take 1 tablet by mouth every 4 hours as needed for Pain. No driving, no alcohol 3 tablet 10/06/2016 11/09/2016 RIFAXIMIN 550 mg TabletIndications:Hepati c encephalopathy take 1 tablet by mouth twice a day 60 tablet 3 01/20/2015 08/31/2017 ERGOCALCIFEROL, VITAMIN D2, (VITAMIN D ORAL) Take 1,000 Units by mouth daily. 04/18/2019 rifaximin (XIFAXIN) 550 mg Tab tablet Take 1 tablet by mouth 2 times daily. 180 tablet 3 08/15/2013 11/09/2016 escitalopram (LEXAPRO) 20 mg tabletIndications:Pancyt openia Take 20 mg by mouth daily. Reported on 11/10/2016 11/10/2016 levothyroxine (SYNTHROID) 25 mcg tabletIndications:Pancyt openia Take 25 mcg by mouth daily. 11/23/2016 pantoprazole (PROTONIX) 40 mg tabletIndications:Pancyt openia Take 20 mg by mouth daily. 11/23/2016 FERROUS SULFATE, DRIED (IRON, DRIED, ORAL)Indications:Pancyto penia Take 65 mg by mouth 3 times daily. 04/18/2019 documented as of this encounter ED Notes * Yusuf Dawson RN - 10/06/2016 11:17 PM EST Patient given discharge instructions, paperwork, and prescription. Patient verbalized understandingand ambulated off the unit with steady gait. * Lashanda Alanis - 10/06/2016 10:38 PM EST ED resident at bedside to discuss plan of care. * Lashanda Alanis - 10/06/2016 9:00 PM EST Pt requesting more pain medication. MD notified. * Lashanda Alanis - 10/06/2016 7:34 PM EST Pt up to bathroom independently. Call hines in reach. * Lashanda Alanis - 10/06/2016 7:00 PM EST Resident at bedside for ultrasound * Lashanda Alanis - 10/06/2016 6:50 PM EST Pt states no pain relief from dilaudid and requesting nausea medication. aware * Karol Elliott - 10/06/2016 5:26 PM EST Tara Yun is an 56 y.o. female who presents to the ED with: Chief Complaint Patient presents with ??? Chest Pain I saw this patient 10/06/2016 at 1730. HPI Tara Yun is a 56 y.o. female with hx of difficult to pass kidney stones who presents to the Emergency Department with R flank pain that began yesterday that felt consistent with prior kidney stones, as well as hematuria that has since been clearing. She has been pushing fluids and cranberry juice at home in the hope of managing her symptoms alone, however found that she had a sudden increase in her pain around noon today. The pain spike to 10/10, and was so sharp that it brought her to her knees. When this pain came on, she also felt as if it was difficult to breathe, had a sense of great anxiety, and felt the pain radiate into her chest and toward her left arm. Has no associated ligh theadedness, no palpitations, no diaphoresis. Did have some nausea. The chest pain has come on intermittently over the afternoon since that initial episode, she feels associated with when she is feeling most anxious. She does not note association with exertion. She denies prior cardiac history or work up. She is an occasional smoker without hypertension or HLD. She has not taken an aspirin, tellsme that she cannot due to low platelets. She was given one dose of Nitro by EMS with no improvementin her chest discomfort. She is currently endorsing minimal chest pressure, 3/10. Father with VA in50s, none on mom's side. She has not had fevers, no significant dysuria. No LE pain or swelling. Nolong travel. Review of Systems: Review of Systems 10 systems reviewed and negative other than reported in HPI. Patient Vitals for the past 24 hrs: BP Temp Temp src Pulse Resp SpO2 10/06/16 1730 116/88 - - 79 18 98 % 10/06/16 1725 - - - - - 99 % 10/06/16 1724 105/71 - - - - - 10/06/16 1723 - 36.6 ??C (97.9 ??F) Oral - - - Physical Exam: Physical Exam Constitutional: She is oriented to person, place, and time. She appears well- developed and well-nourished. She appears distressed (uncomfortable appearing, laying in bed.). HENT: Head: Normocephalic and atraumatic. Mouth/Throat: Oropharynx is clear and moist. Eyes: EOM are normal. Pupils are equal, round, and reactive to light. Neck: Normal range of motion. Neck supple. Cardiovascular: Normal rate, regular rhythm, normal heart sounds and intact distal pulses. Pulmonary/Chest: Effort normal and breath sounds normal. No respiratory distress. Abdominal: Soft. She exhibits no distension. There is no tenderness. There is CVA tenderness (on the R). There is no rigidity and no guarding. Musculoskeletal: Normal range of motion. She exhibits no edema. Neurological: She is alert and oriented to person, place, and time. Skin: Skin is warm and dry. Psychiatric: She has a normal mood and affect. Her behavior is normal. Vitals reviewed. ED Course: - Patient was evaluated and discussed with Dr. Urias. - Medications, allergies and past medical history reviewed - I reviewed the patients records: Briefly, as in HPI above. CT here in Oct with no evidence of stones. - I reviewed the EKG: NSR, normal intervals, no ST elevations or depressions. - Medications and fluids administered: IV dilaudid, IV Zofran, PO oxycodone - I reviewed the patient's labwork: no leukocytosis, no anemia, stable thrombocytopenia, slightly hyperchloremia, renal function wnl, troponin wnl x2, urine with many RBCs - I reviewed the x-ray images: no cardiopulmonary abnormality - I reviewed the CT images: no hydro or urolithiasis - Bedside ultrasound performed by Dr. Ramos demonstrated no hydronephrosis Assessment and Plan: Assessment: 56 y.o. female with PMHx of kidney stones p/w R flank pain radiating into her chest. Strongly considered acute coronary syndrome (ACS), however, the patient had atypical pain, a low risk factor profile, and no objective evidence of ischemia (non-ischemic EKG and normal cardiac biomarkers). As a result, ACS was felt to be very unlikely. We also considered other life threatening causes o f chest pain including PE, aortic dissection, pericarditis, pneumonia, and pneumothorax and also felt these were very unlikely due to the patients clinical presentation and thus did not warrant further investigation at this time outside of a normal CXR. No evidence of renal stone on CT although urinalysis demonstrates RBCs, patient may have passed herstone. Pain improved w/ dilaudid and oxycodone, will d/c with 3 tabs of oxycodone for use over the next 2 days. Return precautions were verbally discussed with the patient and written in discharge instructions, including fevers, shortness of breath, abdominal pain, nausea/vomiting, or other concerns. The patient expressed understanding that she could come back to the ED at any time and agreed to the follow-up plan. Plan: - RX oxycodone - Follow up with PCP - Return precautions clearly discussed KAROL ELLIOTT MD 10/06/2016 *Note dictated with Jumptap software, please excuse any errors in dictation. Karol Elliott MD Resident 10/08/16 1030 Associated attestation - Espinoza Urias MD - 10/08/2016 6:11 PM EST I have personally seen and examined the patient. I reviewed the patient with Dr. Elliott and agreewith the brown findings and plan. The patient has right flank and low back pain. It hurts when she moves. Her back is tender down to her pelvis. Chest pain came on after her back pain. Cardiac work up was negative. CT of abd showed no stone. Likely musculoskeletal back pain and anxiety. documented in this encounter Miscellaneous Notes * ED Procedure Note - Bhargav Ramos - 10/06/2016 7:08 PM EST Bedside Ultrasound During ED Visit: Point of care emergency department limited renal ultrasound: Indication: Right flank pain Procedure in detail: Using the Transducers: Curvilinear transducer the bilateral kidney was first evaluated in both the long and short axes demonstrating none hydronephrosis. Subsequently the bilateral kidney was evaluated in both the long and short axes using the same transducer and demonstrated none hydronephrosis. The bladder was evaluated in both the axial and sagittal planes demonstrated normal bladder volume. Bladder volume: Other findings or limitations: None Impression: Point of care limited renal ultrasound without hydronephrosis. This study was supervised by an ultrasound credentialed emergency physician. These images were archived digitally and I independently interpreted the images at the bedside and agree with the documented results. BHARGAV RAMOS DO * ED Triage - Lashanda Alanis - 10/06/2016 5:22 PM EST Hx kidney stones, back pain yesterday that felt like kidney stone. CP started around noon today. Substernal, reproducible, radiates to left shoulder. 9/10 pain. 1 nitro from EMS with no relief. Nausea, no vomiting. Respirations even, non labored. documented in this encounter Plan of Treatment Upcoming Encounters Date Type Department Care Team (Late st Contact Info) Description 11/29/2024 1:30 PM EST Appointment XRay at [address] [place] [phone] Laurent Cabrera MD [facility] [place] [address] 11/29/2024 2:20 PM EST Office [place] [address] Laurent Cabrera MD [facility] [place] [address] documented as of this encounter Procedures Procedure Name Priority Date/Time Associated Diagnosis Comments TROPONIN STAT 10/06/2016 10:30 PM EST EKG 12-LEAD STAT 10/06/2016 8:45 PM EST URINE HOLD STAT 10/06/2016 8:00 PM EST URINALYSIS WITH REFLEX CULTURE STAT 10/06/2016 8:00 PM EST URINE CULTURE STAT 10/06/2016 8:[address] ABDOMEN AND PELVIS WO CONTRAST STAT 10/06/2016 6:47 PM EST XR CHEST PA AND LATERAL STAT 10/06/2016 6:37 PM EST EKG 12-LEAD STAT 10/06/2016 5:35 PM EST HEMOGRAM STAT 10/06/2016 5:32 PM EST DIFFERENTIAL, AUTOMATED STAT 10/06/2016 5:32 PM EST GOLD TUBE HOLD STAT 10/06/2016 5:32 PM EST BLUE TUBE HOLD STAT 10/06/2016 5:32 PM EST CARDIAC ENZYMES (MC/CGP) STAT 10/06/2016 5:32 PM EST CBC (WITH DIFF) STAT 10/06/2016 5:32 PM EST TROPONIN STAT 10/06/2016 5:32 PM EST BASIC METABOLIC PANEL STAT 10/06/2016 5:32 PM EST documented in this encounter Results * Troponin T (10/06/2016 10:30 PM EST) Troponin-T <0.03 <=0.03 ng/mL [facility] Comment: 0.03 ng/mL: Represents the 99th percentile upper reference limit for normals. >0.03 ng/mL: Elevated cardiac troponin T level indicative of myocardial damage. Diagnosis of acute, evolving or recent VA requires a typical rise and gradual fall [...] consensus document of the Joint Society of Cardiology/[place] [employer]iology Committee for the redefinition of myocardial infarction. ??Journal of the [place] College of Cardiology 2000; 36: 959-969] Blood specimen (specimen) 10/06/2016 10:30 PM EST 10/06/2016 10:39 PM EST Narrative Resulting Agency Comment Spec In Lab Tino Smalls MD CHEMISTRY ORDERABL ES Performing Organization Address [facility] de Phone Number [facility] [place] [address] * EKG 12 Lead (10/06/2016 8:45 PM EST) Ventricular rate 75 BPM MUSE SYSTEM Atrial Rate 75 BPM MUSE SYSTEM P-R Interval 146 ms MUSE SYSTEM QRS Duration 84 ms MUSE SYSTEM Q-T Interval 400 ms MUSE SYSTEM QTC Calculated (Bezet) 446 ms MUSE SYSTEM Calculated P [place] 57 degrees MUSE SYSTEM Calculated R [place] 53 degrees MUSE SYSTEM Calculated T [place] 36 degrees MUSE SYSTEM INTERPRETATION Normal sinus rhythm Normal ECG When compared with ECG of 06-OCT-2016 17:35, (unconfirmed) No significant change was found Confirmed by MD Abelino, Gaetano ([id number]) on 10/07/2016 8:27:19 AM MUSE SYSTEM 10/06/2016 8:45 PM EST 10/07/2016 8:27 AM EST Espinoza Urias MD ECG ORDERABLES Performing Organization Address [facility] de Phone Number MUSE SYSTEM * Urine culture (10/06/2016 8:00 PM EST) Urine Culture No growth (Less than 1,000 cfu/ml). [facility] Urine specimen obtained by clean catch procedure (specimen) 10/06/2016 8:00 PM EST 10/06/2016 9:31 PM EST Narrative Resulting Agency Comment Spec In Lab Espinoza Urias MD MICROBIOLOGY - GENE RAL ORDERABLES Performing Organization Address [facility] de Phone Number [facility] [place] [address] * Urine Hold (10/06/2016 8:00 PM EST) Hold, Urine Sample in lab. [facility] Urine specimen (specimen) Urine / Unknown 10/06/2016 8:00 PM EST 10/06/2016 8:11 PM EST Espinoza Urias MD URINE ORDERABLES [facility] [place] [address] * (ABNORMAL) Urinalysis with reflex Culture (10/06/2016 8:00 PM EST) Glucose, Urine Dipstick Negative Negative mg/dL [facility] Protein, Urine Dipstick 100(A) Negative mg/dL [facility] Bilirubin, Urine Dipstick Negative Negative mg/dL [facility] Comment: Clinical correlation required for positive Urine Bilirubin results as false positive may occur with some drugs and drug related products. If a false positive is suspected a serum total bilirubin should be considered if clinically indicated. Urobilinogen, Urine Dipstick Normal Normal mg/dL [facility] pH, Urn (dipstick) 6.0 5.0 - 8.0 [facility] Blood, Urine Dipstick Large(A) Negative mg/dL [facility] Ketone, Urine Dipstick Negative Negative mg/dL [facility] Nitrite, Urine Dipstick Negative Negative [facility] Leukocytes, Urine Dipstick Moderate(A) Negative [facility] Appearance, Urine Dipstick Cloudy(A) Clear [facility] Specific [place] Urine Automated 1.019 1.002 - 1.030 [facility] Color, Urine Dipstick Red Yellow [facility] RBC, Urine >182(H) 0 - 4 /HPF [facility] WBC, Urine >182(H) 0 - 5 /HPF [facility] WBC Clumps, Urine Many(A) None /HPF [facility] Bacteria, Urine Moderate(A) None /HPF [facility] Squamous Epithelial Cells, Urine 6(H) <=4 /HPF [facility] Reflex to Culture Yes [facility] Urine specimen obtained by clean catch procedure (specimen) 10/06/2016 8:00 PM EST 10/06/2016 8:10 PM EST Narrative Resulting Agency Comment Spec In Lab Espinoza Urias MD URINE ORDERABLES [facility] [place] [address] * CT Abdomen & Pelvis wo Contrast (10/06/2016 6:47 PM EST) Anatomical Region Laterality Modality Abdomen, Pelvis Computed Tomogra phy Impressions 10/06/2016 7:14 PM EST No hydronephrosis or urolithiasis. Narrative 10/06/2016 7:14 PM EST EXAMINATION: CT ABDOMEN AND PELVIS WO CONTRAST CLINICAL HISTORY: R flank pain, eval renal stone. TECHNIQUE: Helical CT of the abdomen and pelvis was performed without the use of intravenous contrast. ??Multiplanar reformatted images were generated. COMPARISON: August 28, 2016 FINDINGS: Right kidney/ureter: No collecting system dilation or calculi.. ??The previously described focal calcification projecting adjacent to the right ureter at the level of the pelvic brim is unchanged in appearance. Left kidney/ureter: No collecting system dilation or calculi.. ? This examination is limited for the evaluation of solid organs and vasculature structures due to the lack of intravenous contrast. Unenhanced images of the liver, pancreas, and adrenal glands are within normal limits. Again seen is splenomegaly with the spleen measuring approximately 19.5 cm in its longest dimension. Gallbladder: Absent Lymph Nodes: No lymphadenopathy. GI tract: No bowel dilatation, mural thickening or mesenteric inflammation. Abdominal wall: Postoperative changes are present, unchanged, in the right side of the anterior abdominal wall. Surgical clips project in the right side of the abdomen. Osseous structures: No suspicious lesions. Procedure Note Kong Lucero MD - 10/06/2016 EXAMINATION: CT ABDOMEN AND PELVIS WO CONTRAST CLINICAL HISTORY: R flank pain, eval renal stone. TECHNIQUE: Helical CT of the abdomen and pelvis was performed without theuse of intravenous contrast. Multiplanar reformatted images were generated. COMPARISON: August 28, 2016 FINDINGS: Right kidney/ureter: No collecting system dilation or calculi.. Thepreviously described focal calcification projecting adjacent to the right ureter atthe level of the pelvic brim is unchanged in appearance. Left kidney/ureter: No collecting system dilation or calculi.. This examination is limited for the evaluation of solid organs andvasculature structures due to the lack of intravenous contrast. Unenhanced images of the liver, pancreas, and adrenal glands are withinnormal limits. Again seen is splenomegaly with the spleen measuring dephkthfailke05.5 cm in its longest dimension. Gallbladder: Absent Lymph Nodes: No lymphadenopathy. GI tract: No bowel dilatation, mural thickening or mesentericinflammation. Abdominal wall: Postoperative changes are present, unchanged, in the rightside of the anterior abdominal wall. Surgical clips project in the right sideof the abdomen. Osseous structures: No suspicious lesions. IMPRESSION No hydronephrosis or urolithiasis. Espinoza Urias MD IMG CT ORDERABLES * XR Chest PA & Lateral (Generic) (10/06/2016 6:37 PM EST) Anatomical Region Laterality Modality Chest N/A Digital Radiogra phy Impressions 10/06/2016 7:17 PM EST No abnormalities are seen. Narrative 10/06/2016 7:17 PM EST EXAMINATION: XR CHEST PA AND LATERAL (GENERIC) CLINICAL HISTORY: chest pain TECHNIQUE: PA and lateral chest COMPARISON: None FINDINGS: The heart is normal in size and the mediastinum has a normal contour. The lungs are clear and costophrenic angles are sharp. The visualized bony structures are intact. Surgical clips project in the upper abdomen. Procedure Note Kong Lucero MD - 10/06/2016 EXAMINATION: XR CHEST PA AND LATERAL (GENERIC) CLINICAL HISTORY: chest pain TECHNIQUE: PA and lateral chest COMPARISON: None FINDINGS: The heart is normal in size and the mediastinum has a normal contour. The lungs are clear and costophrenic angles are sharp. The visualized bony structures are intact. Surgical clips project in theupper abdomen. IMPRESSION No abnormalities are seen. Espinoza Urias MD IMG DX ORDERABLES * EKG 12 Lead (10/06/2016 5:35 PM EST) Pathologist [facility] Ventricular rate 79 BPM MUSE SYSTEM Atrial Rate 79 BPM MUSE SYSTEM P-R Interval 140 ms MUSE SYSTEM QRS Duration 84 ms MUSE SYSTEM Q-T Interval 382 ms MUSE SYSTEM QTC Calculated (Bezet) 438 ms MUSE SYSTEM Calculated P [place] 72 degrees MUSE SYSTEM Calculated R [place] 75 degrees MUSE SYSTEM Calculated T [place] 64 degrees MUSE SYSTEM INTERPRETATION Normal sinus rhythm Normal ECG When compared with ECG of 28-AUG-2016 12:44, No significant change was found Confirmed by MD Abelino, Gaetano ([id number]) on 10/07/2016 8:27:09 AM MUSE SYSTEM 10/06/2016 5:35 PM EST 10/07/2016 8:27 AM EST Espinoza Urias MD ECG ORDERABLES MUSE SYSTEM * Troponin T (10/06/2016 5:32 PM EST) Pathologist [facility] Department Troponin-T <0.03 <=0.03 ng/mL [facility] Comment: 0.03 ng/mL: Represents the 99th percentile upper reference limit for normals. >0.03 ng/mL: Elevated cardiac troponin T level indicative of myocardial damage. Diagnosis of acute, evolving or recent [place] requires a typical rise and gradual fall [...] consensus document of the Joint Society of Cardiology/[place] [employer] Cardiology Committee for the redefinition of myocardial infarction. ??Journal of the [place] College [employer] Cardiology 2000; 36: 959-969] Blood specimen (specimen) Venous Draw / Unknown 10/06/2016 5:32 PM EST 10/06/2016 5:45 PM EST Narrative Resulting Agency Comment Spec In Lab Espinoza Urias MD CHEMISTRY ORDERABLE S Performing Organization Address City/[facility]/ZIP Co de Phone Number [facility] [place] [address] * Gold Tube HOLD (10/06/2016 5:32 PM EST) Gold Hold Sample in lab. [facility] Blood specimen (specimen) No Charge / Unknown 10/06/2016 5:32 PM EST 10/06/2016 5:41 PM EST Espinoza Urias MD CHEMISTRY ORDERABLE S Performing Organization Address City/[facility] Co de Phone Number [facility] [place] [address] * (ABNORMAL) Differential, Automated (10/06/2016 5:32 PM EST) Neutrophil % 70.4 % [facility] Neutrophil Absolute 1.68(L) 1.70 - 6.10 x10(3)/mc L [facility] Lymph % 14.6 % [facility] Lymphocytes Abs 0.4(L) 0.9 - 3.2 x10(3)/mc L [facility] Monocyte % 10.5 % [facility] Monocyte Abs 0.2(L) 0.3 - 0.9 x10(3)/mc L [facility] Eos % 3.3 % [facility] Eosinophils Abs 0.1 0.0 - 0.4 x10(3)/mc L [facility] Basophil % 0.8 % [facility] Baso Absolute 0.0 0.0 - 0.1 x10(3)/mc L [facility] Immature Gran % 0.40 % [facility] Comment: Immature granulocytes(IG's)percentage and absolute count will include metamyelocytes, myelocytes, and promyelocytes. Blood smears from CBCs yielding IG's will be scanned manually for concordance. If this scan disagrees with the automated IG or if promyelocytes are noted, a manual differential will be performed. Immature Gran Absolute 0.01 0.00 - 0.04 x10(3)/mc L [facility] Blood specimen (specimen) 10/06/2016 5:32 PM EST 10/06/2016 5:41 PM EST Narrative Resulting Agency Comment Spec In Lab Espinoza Urias MD HEMATOLOGY ORDERABL ES [facility] [place] [address] * (ABNORMAL) Hemogram (10/06/2016 5:32 PM EST) White Blood Cell 2.4(L) 4.0 - 9.5 x10(3)/mc L [facility] Red Blood Cell 4.44 4.00 - 5.21 x10(6)/mc L [facility] Hemoglobin 12.5 11.7 - 15.5 gm/dL [facility] LABORATORY Hematocrit 39.1 35.7 - 45.8 % [facility] Mean Cell Volume 88.1 82.6 - 94.4 fL [facility] Mean Cell Hemoglobin 28.2 27.1 - 32.0 pg [facility] Mean Cell Hemoglobin Concentration 32.0 31.7 - 35.0 gm/dL [facility] Platelet 68(L) 145 - 357 x10(3)/mc L [facility] RDW Standard Deviation 46.5(H) 37.0 - 46.0 fL [facility] RDW coefficient of variation 14.4(H) 11.5 - 14.1 % [facility] Mean Platelet Volume 11.0 7.6 - 12.9 fL [facility] NRBC% auto 0.0 % [facility] NRBC Absolute 0.000 0.000 - 0.000 x10(3)/mc L [facility] Blood specimen (specimen) 10/06/2016 5:32 PM EST 10/06/2016 5:41 PM EST Narrative Resulting Agency Comment Spec In Lab Espinoza Urias MD HEMATOLOGY ORDERABL ES [facility] [place] [address] * (ABNORMAL) Basic Metabolic Panel (non-fasting) (10/06/2016 5:32 PM EST) Glucose 84 65 - 199 mg/dL [facility] Comment:Diabetes: >=200 mg/d L plus symptoms Blood Urea Nitrogen 12 8 - 18 mg/dL [facility] Creatinine 0.72 0.70 - 1.20 mg/dL [facility] Comment: Please note that the pediatric reference intervals supplied above were [place] [facility] [place] Results from pediatric patients should be interpreted in conjunction to the patient's age, height and muscle mass. Sodium 147(H) 135 - 145 mmol/L [facility] Potassium 3.6 3.5 - 5.0 mmol/L [facility] Comment: Please note: ??Patients with WBC >100,000 may have falsely elevated Potassium levels. ??For accurate Potassium quantification in these patients send serum separator tube (gold top) for subsequent determinations. ??Contact the Clinical Chemistry Laboratory if there are any questions. Chloride 106 98 - 107 mmol/L [facility] Carbon Dioxide 26 22 - 31 mmol/L [facility] Anion Gap 15 5 - 15 mmol/L [facility] Calcium 8.8 8.5 - 10.5 mg/dL [facility] Est Glomerular Filtration Rate >60 >=60 [facility] Comment: This estimated GFR [...] the following links into your internet browser. [email or web address] Blood specimen (specimen) 10/06/2016 5:32 PM EST 10/06/2016 5:41 PM EST Narrative Resulting Agency Comment Spec In Lab Espinoza Urias MD CHEMISTRY ORDERABLE S [facility] [place] [address] * Cardiac Enzymes (10/06/2016 5:32 PM EST) Troponin-T <0.03 <=0.03 ng/mL [facility] Comment: 0.03 ng/mL: Represents the 99th percentile upper reference limit for normals. >0.03 ng/mL: Elevated cardiac troponin T level indicative of myocardial damage. Diagnosis of acute, evolving or recent [place] requires a typical rise and gradual fall [...] consensus document of the Joint Society of Cardiology/[place] [employer] Committee for the redefinition of myocardial infarction. ??Journal of the [place] [employer] 2000; 36: 959-969] Creatine Kinase 73 0 - 160 unit/L [facility] Blood specimen (specimen) 10/06/2016 5:32 PM EST 10/06/2016 5:41 PM EST Narrative Resulting Agency Comment Spec In Lab Espinoza Urias MD CHEMISTRY ORDERABLE S Performing Organization Address City/[facility]/ZIP Co de Phone Number [facility] [place] [address] * Blue Tube HOLD (10/06/2016 5:32 PM EST) Blue Hold Sample in lab. [facility] Blood specimen (specimen) 10/06/2016 5:32 PM EST 10/06/2016 5:41 PM EST Espinoza Urias MD HEMATOLOGY ORDERABL ES Performing Organization Address [facility] Co de Phone Number [facility] [place] [address] documented in this encounter Visit Diagnoses Diagnosis Flank pain Abdominal pain, unspecified site Atypical chest pain Other chest pain documented in this encounter Administered Medications Inactive Administered Medications - up to 3 most recent administrations Medication Order MAR Action Action Date Dose Rate Site HYDROmorphone (DILAUDID) injection 0.5 mg 0.5 mg, Intravenous, ONCE, 1 dose, On Tue10/06/16 at 1751, STAT Given 10/06/2016 6:08 PM EST 0.5 mg HYDROmorphone (DILAUDID) injection 1 mg 1 mg, Intravenous, ONCE, 1 dose, On Tue10/06/16 at 1829, STAT Given 10/06/2016 6:57 PM EST 1 mg ondansetron (ZOFRAN) injection 4 mg 4 mg, Intravenous, ONCE, 1 dose, On Tue10/06/16 at 1831, STAT Given 10/06/2016 6:58 PM EST 4 mg oxyCODONE (ROXICODONE) immediate release tablet 5 mg 5 mg, Oral, ONCE, 1 dose, On Tue10/06/16 at 2240, STAT Given 10/06/2016 10:48 PM EST 5 mg documented in this encounter Active and Recently Administered Medications Times are shown in EST. Scheduled Medication Order 10/04/2016 10/05/2016 10/06/2016 HYDROmorphone (DILAUDID) injection 0.5 mg (COMPLETED) 0.5 mg, Intravenous, ONCE, 1 dose, On Tue10/06/16 at 1751, STAT 1808 (Given - Provid er: Lashanda Alanis) HYDROmorphone (DILAUDID) injection 1 mg (COMPLETED) 1 mg, Intravenous, ONCE, 1 dose, On Tue10/06/16 at 1829, STAT 1857 (Given - Provid er: Lashanda Alanis) ondansetron (ZOFRAN) injection 4 mg (COMPLETED) 4 mg, Intravenous, ONCE, 1 dose, On Tue10/06/16 at 1831, STAT 1858 (Given - Provid er: Lashanda Alanis) oxyCODONE (ROXICODONE) immediate release tablet 5 mg (COMPLETED) 5 mg, Oral, ONCE, 1 dose, On Tue10/06/16 at 2240, STAT 2248 (Given - Provid er: Lashanda Alanis) documented in this encounter Care Teams Blood Bank Technologist Relationship Specialty Start Date End Date Unknown None PCP - General 09/04/16 11/03/16 documented as of this encounter
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
--- OUTSIDE RECORDS SUMMARY | 2024-11-22 17:35 | XMS_ITS | Encounter Summary ---
Author Organization [facility] [place] [place] [address] Care Team Providers Care Marketing Intelligence Analyst Name Role Phone Loren Jiménez MD Primary Care Provider [phone] Encounter Details Date Type Department Care Team (Latest Contact Info) Description 11/08/2016 9:45 AM EST - 11/08/2016 11:47 AM EST Hospital Encounter Hematology and Oncology at [facility] ([place] [id number] Pancytopenia Discharge Disposition: Home Social History Tobacco Use [...] Sig Dispensed Refills Start Date End Date albuterol (PROVENTIL) 2.5 mg /3 mL (0.083 %) Solution for Nebulization Take 2.5 mg by nebulization every 6 hours as needed. Reported on 11/08/2016 tamsulosin (FLOMAX) 0.4 mg Capsule, Sust. Release 24 hr Take 0.4 mg by mouth daily. Reported on 11/09/2016 11/09/2016 fluticasone (FLOVENT) 110 mcg/actuation HFA Aerosol Inhaler Inhale 1 puff into the lungs 2 times daily. 11/23/2016 UNABLE TO FIND Reported on 11/09/2016 11/09/2016 albuterol (PROAIR HFA) 90 mcg/actuation HFA Aerosol Inhaler Inhale 2 puffs into the lungs every 6 hours as needed. Reported on 11/08/2016 11/23/2016 oxyCODONE (ROXICODONE) 5 mg Tablet Take 1 tablet by mouth every 4 hours as needed for Pain. No driving, no alcohol 3 tablet 10/06/2016 11/09/2016 RIFAXIMIN 550 mg TabletIndications:Hepa tic encephalopathy take 1 tablet by mouth twice a day 60 tablet 3 01/20/2015 08/31/2017 ERGOCALCIFEROL, VITAMIN D2, (VITAMIN D ORAL) Take 1,000 Units by mouth daily. 04/18/2019 rifaximin (XIFAXIN) 550 mg Tab tablet Take 1 tablet by mouth 2 times daily. 180 tablet 3 08/15/2013 11/09/2016 escitalopram (LEXAPRO) 20 mg tabletIndications:Panc ytopenia Take 20 mg by mouth daily. Reported on 11/10/2016 11/10/2016 levothyroxine (SYNTHROID) 25 mcg tabletIndications:Panc ytopenia Take 25 mcg by mouth daily. 11/23/2016 pantoprazole (PROTONIX) 40 mg tabletIndications:Panc ytopenia Take 20 mg by mouth daily. 11/23/2016 FERROUS SULFATE, DRIED (IRON, DRIED, ORAL)Indications:Pancy topenia Take 65 mg by mouth 3 times daily. 04/18/2019 documented as of this encounter Plan of Treatment Upcoming Encounters Date Type Department Care Team (Late st Contact Info) Description 11/29/2024 1:30 PM EST Appointment XRay at [address] [place] [phone] Laurent Cabrera MD [facility] [place] [address] 11/29/2024 2:20 PM EST Office Visit Orthopaedics at [facility] ([place] [address] Laurent Cabrera MD [facility] [place] [address] documented as of this encounter Procedures Procedure Name Priority Date/Time Associated Diagnosis Comments IMMUNOGLOBULIN FREE LIGHT CHAINS, SERUM Routine 11/08/2016 12:10 PM EST IMMUNOGLOBULINS, QUANTITATIVE Routine 11/08/2016 12:10 PM EST HEMOGRAM Routine 11/08/2016 12:10 PM EST Pancytopenia DIFFERENTIAL, AUTOMATED Routine 11/08/20 16 12:10 PM EST Pancytopenia GRANULOCYTE ANTIBODY Routine 11/08/2016 12:10 PM EST Pancytopenia HEPATITIS C RNA, QUANTITATIVE, PCR Routine 11/08/2016 12:10 PM EST Pancytopenia SEDIMENTATION RATE STAT 11/08/2016 12 :10 PM EST Pancytopenia CBC (WITH DIFF) Routine 11/08/2016 12:10 PM EST Pancytopenia RHEUMATOID FACTOR, QUANT Routine 11/08/2016 12:10 PM EST Pancytopenia MELVIN ANTIBODY SCREEN Routine 11/08/2016 1 2:10 PM EST Pancytopenia PROTEIN ELECTROPHORESIS, SERUM STAT 11/08/2016 12:10 PM EST Pancytopenia LACTATE DEHYDROGENASE Routine 11/08/2016 12:10 PM EST Pancytopenia FOLATE, SERUM Routine 11/08/2016 12:10 PM EST Pancytopenia VITAMIN B12 STAT 11/08/2016 12:10 PM EST Pancytopenia COMPREHENSIVE METABOLIC PANEL Routine 11/08/2016 12:10 PM EST Pancytopenia documented in this encounter Results * (ABNORMAL) Free Light Chains, Serum (11/08/2016 12:10 PM EST) [facility] Free Light Chains 5.60(H) 0.33 - 1.94 mg/dL [facility] Lambda Free Light Chains 1.52 0.57 - 2.63 mg/dL [facility] Gumlog/Lambda Free Light Chain Ratio 3.6842(H) 0.2600 - 1.6500 [facility] Blood specimen (specimen) Venous Draw / Unknown 11/08/2016 12:10 PM EST 11/08/2016 5:17 PM EST Narrative Resulting Agency Comment Spec In Lab Dom Zeng MD CHEMISTRY ORDERA BLES Performing Organization Address [facility] de Phone Number [facility] [place] [address] * (ABNORMAL) Immunoglobulins, Quantitative (11/08/2016 12:10 PM EST) [facility] Immunoglobulin G 961 700 - 1,600 mg/dL [facility] IgA 432(H) 70 - 400 mg/dL [facility] IgM 55 40 - 230 mg/dL [facility] Blood specimen (specimen) Venous Draw / Unknown 11/08/2016 12:10 PM EST 11/08/2016 5:16 PM EST Narrative Resulting Agency Comment Spec In Lab Dom Zeng MD CHEMISTRY ORDERA BLES Performing Organization Address [facility] de Phone Number [facility] [place] [address] * (ABNORMAL) Differential, Automated (11/08/2016 12:10 PM EST) [facility] Neutrophil % 70.6 % [facility] Neutrophil Absolute 1.15(L) 1.70 - 6.10 x10(3)/mc L [facility] Lymph % 20.9 % [facility] Lymphocytes Abs 0.3(L) 0.9 - 3.2 x10(3)/mc L [facility] Monocyte % 6.7 % [facility] Monocyte Abs 0.1(L) 0.3 - 0.9 x10(3)/mc L [facility] Eos % 1.8 % [facility] Eosinophils Abs 0.0 0.0 - 0.4 x10(3)/ L [facility] Basophil % 0.0 % [facility] Baso Absolute 0.0 0.0 - 0.1 x10(3)/[facility] Immature Gran % 0.00 % [facility] Comment: Immature granulocytes(IG's)percentage and absolute count will include metamyelocytes, myelocytes, and promyelocytes. Blood smears from CBCs yielding IG's will be scanned manually for concordance. If this scan disagrees with the automated IG or if promyelocytes are noted, a manual differential will be performed. Immature Gran Absolute 0.00 0.00 - 0.04 x10(3)/[facility] Blood specimen (specimen) 11/08/2016 12:10 PM EST 11/08/2016 12:18 PM EST Narrative Resulting Agency Comment Spec In Lab Dom Zeng MD HEMATOLOGY ORDER YANN [facility] [place] [address] * (ABNORMAL) Hemogram (11/08/2016 12:10 PM EST) White Blood Cell 1.6(Criti gee) 4.0 - 9.5 x10(3)/[facility] Red Blood Cell 4.39 4.00 - 5.21 x10(6)/[facility] Hemoglobin 12.3 11.7 - 15.5 gm/dL [facility] Hematocrit 37.4 35.7 - 45.8 % [facility] Mean Cell Volume 85.2 82.6 - 94.4 fL [facility] Mean Cell Hemoglobin 28.0 27.1 - 32.0 pg [facility] Mean Cell Hemoglobin Concentration 32.9 31.7 - 35.0 gm/dL [facility] Platelet 56(L) 145 - 357 x10(3)/[facility] RDW Standard Deviation 45.9 37.0 - 46.0 fL [facility] RDW coefficient of variation 14.6(H) 11.5 - 14.1 % [facility] Mean Platelet Volume 10.2 7.6 - 12.9 fL [facility] NRBC% auto 0.0 % [facility] NRBC Absolute 0.000 0.000 - 0.000 x10(3)/mc L [facility] Blood specimen (specimen) 11/08/2016 12:10 PM EST 11/08/2016 12:18 PM EST Narrative Resulting Agency Comment Spec In Lab Dom Zeng MD HEMATOLOGY ORDER YANN Performing Organization Address [facility] [place] [address] * Granulocyte Antibody (11/08/2016 12:10 PM EST) Granulocyte Ab (MARCH) Negative Not Applicable [facility] Comment: ADDITIONAL INFORMATION Method: Immunofluorescent Assay Performing Laboratory CLIA# [id number] This test was developed and its performance characteristics determined by [facility] in a manner consistent with CLIA requirements. This test has not been cleared or approved by the U.S. Food and Drug Administration. Test Performed by: [facility] - [address] [address] Medical Artist: Jesus Stanford II, M.D., Ph.D. Blood specimen (specimen) 11/08/2016 12:10 PM EST 11/08/2016 1:14 PM EST Narrative Resulting Agency Comment Spec In Lab Dom Zeng MD LAB SEND OUT ORD ERABLES Performing Organization Address [facility]/ZIP Co de Phone Number [facility] [place] [address] * MELVIN (11/08/2016 12:10 PM EST) MELVIN Neg Neg [facility] Blood specimen (specimen) 11/08/2016 12:10 PM EST 11/08/2016 1:43 PM EST Narrative Resulting Agency Comment Spec In Lab Dom Zeng MD LAB SEND OUT ORD ERABLES Performing Organization Address City/[facility]/ZIP Co de Phone Number [facility] [place] [phone] * Rheumatoid factor, quant (11/08/2016 12:10 PM EST) Pathologist [facility] Rheumatoid Factor <10 <=14 IU/mL [facility] Blood specimen (specimen) 11/08/2016 12:10 PM EST 11/08/2016 12:18 PM EST Narrative Resulting Agency Comment Spec In Lab Dom Zeng MD CHEMISTRY ORDERA BLES Performing Organization Address [facility]/ZIP Co de Phone Number [facility] [place] [address] * Protein Electrophoresis, serum (11/08/2016 12:10 PM EST) Pathologist [facility] Total Prot Electrophoresis 6.7 6.1 - 8.0 gm/dL [facility] Albumin Electrophoresis 4.34 3.60 - 6.00 gm/dL [facility] Alpha 1 Globulin 0.19 0.10 - 0.30 gm/dL [facility] Alpha 2 Globulin 0.58 0.40 - 0.90 gm/dL [facility] Beta Globulin 0.66 0.50 - 1.00 gm/dL [facility] Gamma Globulin 0.93 0.50 - 1.30 gm/dL [facility] M1 Band Comments Below [facility] SPEP Comments See Note [facility] Comment: Laboratory records show that this patient is known to have a monoclonal protein, which is not detected in this serum sample. Unless requested by calling [employer] ([phone]), no further workup will be performed. The sample will be held for 4 weeks. Blood specimen (specimen) 11/08/2016 12:10 PM EST 11/08/2016 12:18 PM EST Narrative Resulting Agency Comment Spec In Lab Dom Zeng MD CHEMISTRY ANYAA LUIS Performing Organization Address City/[facility]/ZIP Co de Phone Number [facility] [place] [address] * Hepatitis C RNA, quantitative, PCR (11/08/2016 12:10 PM EST) Pathologist [facility] HCV Viral Load <15 IU/mL [facility] HCV Viral Load Result: <15 IU/mL [...] This assay is being performed in the [facility] Molecular Pathology Laboratory. Harry Murillo, Ph.D. Director, Molecular Pathology [facility] Comment: [VERIFIED DATE]11.11.16 Verified By:Nguyen Alberto (Electronic Signature) Blood specimen (specimen) 11/08/2016 12:10 PM EST 11/10/2016 11:05 AM EST Narrative Resulting Agency Comment Spec In Lab Dom Zeng MD MOLECULAR BRADEN SMITH Performing Organization Address City/[facility]/ZIP Co de Phone Number [facility] [place] [address] * Sedimentation rate (11/08/2016 12:10 PM EST) Pathologist [facility] Sedimentation Rate Automated 9 0 - 20 mm/hr [facility] Blood specimen (specimen) 11/08/2016 12:10 PM EST 11/08/2016 12:18 PM EST Narrative Resulting Agency Comment Spec In Lab Dom Zeng MD HEMATOLOGY ORDER YANN [facility] [place] [address] * Folate, serum (11/08/2016 12:10 PM EST) Folate 7.0 4.8 - 24.2 ng/mL [facility] Blood specimen (specimen) 11/08/2016 12:10 PM EST 11/08/2016 12:18 PM EST Narrative Resulting Agency Comment Spec In Lab Dom Zeng MD CHEMISTRY ORDERA BLES Performing Organization Address City/[facility] Co de Phone Number [facility] [place] [address] * Vitamin B12 (11/08/2016 12:10 PM EST) Vitamin B12 347 207 - 974 pg/mL [facility] Blood specimen (specimen) 11/08/2016 12:10 PM EST 11/08/2016 12:18 PM EST Narrative Resulting Agency Comment Spec In Lab Dom Zeng MD CHEMISTRY ORDERA BLES Performing Organization Address City/[facility]/ZIP Co de Phone Number [facility] [place] [address] * Lactate Dehydrogenase (11/08/2016 12:10 PM EST) Lactate Dehydrogenase 129 110 - 220 unit/L [facility] Blood specimen (specimen) 11/08/2016 12:10 PM EST 11/08/2016 12:18 PM EST Narrative Resulting Agency Comment Spec In Lab Dom Zeng MD CHEMISTRY ORDERA BLES Performing Organization Address City/[facility]/ZIP Co de Phone Number [facility] [place] [address] * Comprehensive metabolic panel (non-fasting) (11/08/2016 12:10 PM EST) Glucose 96 65 - 199 mg/dL [facility] Comment:Diabetes: >=200 mg/d L plus symptoms Blood Urea Nitrogen 9 8 - 18 mg/dL [facility] Creatinine 0.90 0.70 - 1.20 mg/dL [facility] Comment: Please note that the pediatric reference intervals supplied above were not validated at [facility]. Results from pediatric patients should be interpreted in conjunction to the patient's age, height and muscle mass. Sodium 142 135 - 145 mmol/L [facility] questions. Chloride 103 98 - 107 mmol/L [facility] Carbon Dioxide 28 22 - 31 mmol/L [facility] Anion Gap 11 5 - 15 mmol/L [facility] Calcium 9.2 8.5 - 10.5 mg/dL [facility] Protein, Total 6.9 6.1 - 8.0 gm/dL [facility] Albumin 4.1 3.2 - 5.2 gm/dL [facility] Aspartate Aminotransferase 15 0 - 30 unit/L [facility] Alanine Aminotransferase 12 0 - 30 unit/L [facility] Alkaline Phosphatase 93 40 - 104 unit/L [facility] Bilirubin, Total 0.4 0.2 - 1.3 mg/dL [facility] Bilirubin, Direct 0.1 0.0 - 0.3 mg/dL [facility] Est Glomerular Filtration Rate >60 >=60 [facility] Comment: This estimated GFR (eGFR) [...] the following links into your internet browser. [email or web address] Blood specimen (specimen) 11/08/2016 12:10 PM EST 11/08/2016 12:18 PM EST Narrative Resulting Agency Comment Spec In Lab Dom Zeng MD CHEMISTRY ORDERA BLES [facility] [place] [address] documented in this encounter Visit Diagnoses Diagnosis Pancytopenia Other pancytopenia documented in this encounter Care Teams Marketing Intelligence Analyst Relationship Specialty Start Date End Date Loren Jiménez MD [facility] [address] [address] PCP - General Family Medicine 11/04/16 11/18/16 documented as of this encounter
--- OUTSIDE RECORDS SUMMARY | 2024-11-22 17:35 | XMS_ITS | Encounter Summary ---
Author Organization [facility] Address [facility] [place] [address] Care Team Providers Care Supervisor [employer] Name Role Phone Emigdio Centeno MD Primary Care Provider [phone] Reason for Visit * Reason Comments Follow-up Encounter Details Date Type Department Care Team (Late st Contact Info) Description 04/02/2014 3:00 PM EDT [place] [address] Scottie Lazo MD [facility] [place] [address] Titus Ibarra MD [facility] [place] [address] Abdominal pain, RUQ (right upper quadrant) (Primary Dx) Discharge Disposition: Home Social History Tobacco Use [...] Sign Reading Time Taken Comments Blood Pressure 106/58 04/02/2014 2:46 PM EDT Pulse 61 04/02/2014 2:46 PM EDT Temperature - - Respiratory Rate - - Oxygen Saturation - - Inhaled Oxygen Concentration - - Weight 103.4 kg (228 lb) 04/02/2014 2:46 PM EDT Height 162.6 cm (5' 4) 04/02/2014 2:46 PM EDT Body Mass Index 39.14 04/02/2014 2:46 PM EDT documented in this encounter Progress Notes * GregoriosamuelTitus aguirre P - 04/02/2014 8:06 PM EDT General Surgery Residents [facility] Note [address] 1960 [id number] Chief complaint: RUQ pain HPI: A 53 year old obese female with h/o cirrhosis Meld 8, hep C, multiple abdominal surgeries including open cholecystectomy. She had an episode of incarcerated ventral hernia one year ago at the site of her cholecystectomy incision site. She had an ventral hernia repair with mesh in [place]. Unclear if an open or laparoscopic repair. She describes an pain at her incision site. She is concerned that she has a recurrent hernia. She describes discomfort with moving, prompting pain at her incision pain, get worse during the course of the day. She claims the site has been bulging but not as muchas before surgery. She has had episodes of nausea in association with the pain but no clear episodes of obstruction. She has been loosing weight intentionally for the past 6 months, claims she has lost 50 pounds. She also describes an asymptomatic umbilical/insicional hernia. The patient also expresses concern of her liver disease and requests information about liver transplantation. Past Medical History Diagnosis Date ??? Hypothyroid ??? GERD (gastroesophageal reflux disease) ??? Hepatitis C antibody test positive ??? Depression ??? Hyperlipidemia ??? Asthma mild intermittent ??? Arthritis Past Surgical History Procedure Date ??? Bone marrow aspiration w/bx through same incision/site 04/09/2013 ([facility]) BONE MARROW ASP PERFORMED W/BX THRU BX INCISION performed by Dom Zeng MD at [facility] ??? Bone marrow bx, needle/trocar 04/09/2013 ([facility]) BONE MARROW,BIOPSY performed by Dom Zeng MD at [facility] ??? Ventral hernia repair 01/11/13 [place] ??? Appendectomy 11/16/96 ??? Dental surgery 03/25/1989 ??? Knee surgery x 11 ??? Total knee arthroplasty 2005 left ??? Total knee arthroplasty 2005 right ??? Toe surgery 2006 right ??? Hysterectomy 1987 ??? Ovary removal 1987 ??? Cholecystectomy 1992 ??? Hiatal hernia repair 1992 ??? Gastric fundoplication 1992 ??? Tonsillectomy 1960 ??? Colonoscopy, diagnostic 06/06/2013 COLONOSCOPY, DIAGNOSTIC performed by Juventino Esteban MD at [facility] History Social History ??? Marital Status: Spouse Name: N/A Number of Children: N/A ??? Years of Education: N/A Occupational History ??? Not on file. Social History Main Topics ??? Smoking status: Current Every Day Smoker -- 0.5 packs/day for 30 years Types: Cigarettes ??? Smokeless tobacco: Not on file Comment: Working on cutting down. ??? Alcohol Use: No Comment: No hx of heavy ETOH. 1 drink 2-3 times a year. Last ETOH x 1 month ago. ??? Drug Use: No Comment: Tried snorting drugs once in 2010. No hx of IV drug use. ??? Sexually Active: Yes -- Male partner(s) Comment: deferred Other Topics Concern ??? Blood Transfusions Yes Platelets in 12/2012 ??? Service No Social History Narrative Lives with domestic partner of 18 years. Lives in [place] [facility]. 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 Done under sterile conditions.Ears pierced - done professionally. with HCV. ROS: Negative for Headaches, h/o migraines Recent change in vision Difficulties swallowing Chest pain/thigthness Palpations SOB As above Difficulties urinating, h/o kidney stones, UTI's Swelling of legs New rash All other systems negative Current Outpatient Prescriptions on File Prior to Visit Medication Sig Dispense Refill ??? ERGOCALCIFEROL, VITAMIN D2, (VITAMIN D ORAL) Take 1,000 Units by mouth daily. ??? lactulose (CHRONULAC) 10 gram/15 mL solution Take 30 mLs by mouth 3 times daily. ??? ALPRAZolam (XANAX) 0.5 mg tablet Take 0.5 mg by mouth nightly as needed. ??? rifaximin (XIFAXIN) 550 mg Tab tablet Take 1 tablet by mouth 2 times daily. 180 tablet 3 ??? [DISCONTINUED] nicotine (NICODERM CQ) 14 mg/[address] 1 patch onto the skin daily. 42 patch 0 ??? [DISCONTINUED] nicotine (NICODERM CQ) 7 mg/[address] 1 patch onto the skin daily. 14 patch 0 ??? [DISCONTINUED] naproxen sodium (ALEVE) 220 mg tablet Take 220 mg by mouth 2 times daily (with meals). ??? [DISCONTINUED] ondansetron (ZOFRAN) 4 mg tablet Take 4 mg by mouth every 8 hours as needed. ??? OXYcodone (ROXICODONE) 5 mg immediate release tablet Take 1 tablet by mouth every 4 hours as needed for Pain. 20 tablet 0 ??? escitalopram (LEXAPRO) 20 mg tablet Take 20 mg by mouth daily. ??? levothyroxine (SYNTHROID) 25 mcg tablet Take 25 mcg by mouth daily. ??? pantoprazole (PROTONIX) 40 mg tablet Take 40 mg by mouth daily. ??? DOCUSATE SODIUM (COLACE ORAL) Take by mouth daily. 1-2 tab daily ??? FERROUS SULFATE, DRIED (IRON, DRIED, ORAL) Take 65 mg by mouth daily. ??? [DISCONTINUED] ergocalciferol (ERGOCALCIFEROL) 50,000 unit capsule Take 50,000 Units by mouth once a week. Allergies Allergen Reactions ??? Sulfa (Sulfonamide Antibiotics) Anaphylaxis, Itching and Rash ??? Cis Free Text Allergy KETORALAC. ??? Cis Free Text Allergy METOCLOPRAMIDE. ??? Codeine ??? Ketorolac Tromethamine ??? Metoclopramide ??? Morphine Abd. Pain, difficulty breathing ??? Prochlorperazine Filed Vitals: 04/02/14 1446 BP: 106/58 Pulse: 61 Height: 162.6 cm (5' 4) Weight: 103.42 kg (228 lb) Exam: General: Alert and oriented x4 Heart: RRR Lungs: Vesicular bilateral Abdomen: Pannus, soft, non distended, tender along a well healed scar in the RUQ, no hernia palpated, umbilical hernia about 1 cm in diameter+ BS Extremities: Warm, no edema Recent Results (from the past 24 hour(s)) CBC (WITH DIFF) Component Value Range WBC 2.6 (*) 4.0 - 10.0 x10(3)/mcL RBC 4.47 3.93 - 5.22 x10(6)/mcL Hemoglobin 12.8 11.2 - 15.7 gm/dL Hematocrit 40.6 34.0 - 45.0 % MCV 90.8 79.0 - 94.0 fL MCH 28.6 26.6 - 32.2 pg MCHC 31.5 (*) 32.0 - 36.5 gm/dL Platelets 61 (*) 145 - 370 x10(3)/mcL RDWSD 47.2 (*) 35.0 - 46.0 fL RDWCV 14.2 10.9 - 14.4 % MPV 10.7 9.0 - 12.0 fL COMPREHENSIVE METABOLIC PANEL (NON-FASTING) Component Value Range Glucose Lvl 120 60 - 199 mg/dL BUN 9 8 - 18 mg/dL Creatinine 0.90 0.70 - 1.20 mg/dL Sodium 141 135 - 145 mmol/L Potassium 4.3 3.5 - 5.0 mmol/L Chloride 103 98 - 107 mmol/L CO2 31 22 - 31 mmol/L Anion Gap 7 5 - 15 mmol/L Calcium 9.2 8.5 - 10.5 mg/dL Total Protein 6.6 6.4 - 8.3 gm/dL Albumin 3.9 3.2 - 5.2 gm/dL AST 21 0 - 30 unit/L ALT 14 0 - 30 unit/L Alk Phos 110 (*) 40 - 104 unit/L Total Bilirubin 0.5 0.2 - 1.3 mg/dL Bili, Direct 0.1 0.0 - 0.3 mg/dL Estimated GFR >60 >=60 PROTHROMBIN TIME Component Value Range PT 16.0 (*) 12.0 - 15.0 sec INR 1.2 (*) 0.9 - 1.1 AFP TUMOR MARKER Component Value Range AFP 2.6 <=8.3 ng/mL DIFFERENTIAL, AUTOMATED Component Value Range Neutrophils % 69.2 34.0 - 71.0 % Neutr Abs (ANC) 1.80 1.50 - 6.30 x10(3)/mcL Lymphocytes % 20.8 19.0 - 53.0 % Lymphocytes Abs 0.5 (*) 1.0 - 3.6 x10(3)/mcL Monocytes % 7.3 4.0 - 13.0 % Monocyte Abs 0.2 0.2 - 1.0 x10(3)/mcL Eosinophils % 2.3 0.0 - 7.0 % Eosinophils Abs 0.1 0.0 - 0.5 x10(3)/mcL Basophils % 0.4 0.0 - 2.0 % Basophils Abs 0.0 0.0 - 0.2 x10(3)/mcL Immature Gran % 0.00 0.00 - 0.66 % Marcie Gran Abs 0.00 0.00 - 0.05 x10(3)/mcL MRI A/P 04/02 1. Hepatic cirrhosis, without visualized focal hepatic lesion or mass. Evaluation for hypervascular lesions may be compromised by early timing of the arterial phase. 2. Probable mild hepatic steatosis. 3. Portal hypertension, characterized by moderate splenomegaly and trace ascites. 4. Pancreatic divisum. On my view mesh in place, no clear hernia. Assessment/Plan A 53 year old female with h/o multiple abdominal operations including open cholecystectomy and ventral hernia formation at that site, s/p repair about one year ago. Increasing discomfort/pain from that site. The patient is obese, though she has been loosing weight. She presents to clinic for evaluation. No clear hernia on examination, images [...] intervention. The patient expressed understanding and agreement. We also discussed indications for liver transplant, the fact her Meld score is 8 and her liver failure is well compensated, transplant is not an immediate concern. Patient seen with Dr Lazo I have seen and examined the patient, providing brown components as outlined below. I have reviewed the resident???s above note; my evaluation of the patient is below: RUQ pain associated with her prior open hernia repair of a right subcostal incision. Currently, no evidence of incarceration or obstruction. CT does not demonstrate a clear hernia. There is some weakness and separation on the superior lateral aspect of the wound that may represent an early separation. No current indication for surgery. Recommend weight loss. She has stable compensated cirrhosis and no current indications for liver transplant. documented in this encounter Plan of Treatment Upcoming Encounters Date Type Department Care Team (Late st Contact Info) Description 11/29/2024 1:30 PM EST Appointment XRay at [address] [place] [address] Laurent Cabrera MD [facility] [place] [address] 11/29/2024 2:20 PM EST Office Visit Orthopaedics at [facility] [place] [address] Laurent Cabrera MD [facility] [place] [address] documented as of this encounter Visit Diagnoses Diagnosis Abdominal pain, RUQ (right upper quadrant)- Primary Abdominal pain, right upper quadrant documented in this encounter Care Teams Supervisor [employer] Relationship Specialty Start Date End Date Emigdio Centeno MD [address] [place] [address] PCP - General 03/27/13 07/08/16 documented as of this encounter
--- OUTSIDE RECORDS SUMMARY | 2024-11-22 17:35 | XMS_ITS | Encounter Summary ---
Author Organization [facility] [place] [address] [place] [address] Care Team Providers Care Roll Weigher Name Role Phone Unknown Primary Care Provider Unavailabl e Reason for Referral * Consultation (Routine) - Closed Specialty Diagnoses / Procedures Referred By Serene t Referred To Contact Internal Medicine Diagnoses Hepatic cirrhosis, unspecified hepatic cirrhosis type Juliet Calvert MD [facility] [place] [address] [address] Referral ID Status Reason Start Date Expiration Date V isits Requested Visits Authorized [id number] Closed Consult, Test & Treat 11/03/2016 11/03/2017 1 1 Reason for Visit * Reason Comments Flank Pain Asthma Encounter Details Date Type Department Care Team (Late st Contact Info) Description 11/03/2016 9:36 AM EST - 11/03/2016 3:49 PM EST [place] [id number] Juliet Calvert MD [facility] [place] [address] Flank pain; Leukopenia, unspecified type; Thrombocytopenia; Hepatic cirrhosis, unspecified hepatic cirrhosis type Discharge Disposition: Home Social History Tobacco [...] Sign Reading Time Taken Comments Blood Pressure 118/67 11/03/2016 3:15 PM EST Pulse 78 11/03/2016 3:15 PM EST Temperature 37 ??C (98.6 ??F) 11/03/2016 3:00 PM EST Respiratory Rate 17 11/03/2016 3:15 PM EST Oxygen Saturation 95% 11/03/2016 3:15 PM EST Inhaled Oxygen Concentration - - Weight - - Height - - Body Mass Index - - documented in this encounter Discharge Instructions * Discharge Instructions* Juliet Calvert MD - 11/03/2016 3:12 PM EST Hematology - follow up : [phone] documented in this encounter Medications at Time of Discharge Medication Sig Dispensed Refills Start Date End Date ciprofloxacin (CIPRO) 500 mg Tablet Take 1 tablet by mouth 2 times daily. 20 tablet 11/03/2016 11/08/2016 ciprofloxacin (CIPRO) 500 mg Tablet Take 1 tablet by mouth 2 times daily for 10 days. 20 tablet 11/03/2016 11/08/2016 oxyCODONE (ROXICODONE) 5 mg Tablet Take [...] daily. 11/23/2016 FERROUS SULFATE, DRIED (IRON, DRIED, ORAL)Indications:Pancytronna fonsecaia Take 65 mg by mouth 3 times daily. 04/18/2019 documented as of this encounter ED Notes * Gil Avilez RN - 11/03/2016 2:33 PM EST Pt back in room, stated pain left flank pain is 4/10. * Da Borrego MD - 11/03/2016 1:00 PM EST ED Resident Note Tara Boothe is an 56 y.o. female who presents to the ED with: Chief Complaint Patient presents with ??? Flank Pain ??? Asthma HPI Tara Boothe is a 56 y.o. female who presents to the Emergency Department with complaint of right-sided flank pain. Patient reports that she has had pain since last evening and that onset was gradual. Describes pain as sharp and states that it radiates across her back towards the left. Pain is currently an 8/10 in intensity and nothing seems to make it better or worse. Has had associated nausea without vomiting and hematuria. Denies any fevers, chills, diarrhea, constipation, or dysuria. Additionally reports feeling somewhat short of breath, as she typically does with her asthma, and that she has been using her inhaler at home more frequently than usual. States that her current flank pain is similar to that she's had in the past with kidney stones. Is unsure of the specifics but has underwent urologic intervention in the past, most recently last year at [facility]. Had apparently been admitted at that time and reports complications including C. difficile colitis. States that she has additional chronic medical problems including cirrhosis and thrombocytopenia. 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 Review of Systems: Review of Systems Constitutional: Negative for chills and fever. HENT: Negative for sore throat and trouble swallowing. Eyes: Negative for visual disturbance. Respiratory: Negative for cough and shortness of breath. Cardiovascular: Negative for chest pain, palpitations and leg swelling. Gastrointestinal: Positive for nausea. Negative for abdominal pain, constipation, diarrhea and vomiting. Genitourinary: Positive for flank pain and hematuria. Negative for difficulty urinating, dysuria and vaginal bleeding. Musculoskeletal: Negative for arthralgias, myalgias and neck pain. Neurological: Negative for dizziness and headaches. Psychiatric/Behavioral: Negative for confusion. Physical Exam: Physical Exam Constitutional: She is oriented to person, place, and time. Obese adult female, lying in bed in no apparent distress. AO ??3. HENT: Head: Normocephalic and atraumatic. Right Ear: External ear normal. Left Ear: External ear normal. Nose: Nose normal. Eyes: EOM are normal. Pupils are equal, round, and reactive to light. No scleral icterus. Neck: Normal range of motion. Neck supple. Cardiovascular: Normal rate, regular rhythm and intact distal pulses. Exam reveals no gallop and nofriction rub. No murmur heard. Pulmonary/Chest: Effort normal. She has no wheezes. She has no rales. Abdominal: Soft. She exhibits no distension. There is no tenderness. There is CVA tenderness (Right-sided). Musculoskeletal: Normal range of motion. She exhibits no edema or tenderness. Neurological: She is alert and oriented to person, place, and time. Skin: Skin is warm and dry. No rash noted. Psychiatric: She has a normal mood and affect. Her behavior is normal. Thought content normal. Nursing note and vitals reviewed. ED Course: - Patient seen under the supervision of Dr. Juliet Calvert - Medications, allergies and past medical history reviewed - Labwork reviewed: CBC with leukopenia (1.3), anemia (Hgb 11.6), thrombocytopenia (49). BMP unremarkable. INR 1.3. Urinalysis sent and currently pending. - Given 1 L IVF, 1 mg IV hydromorphone ??2, 4 mg IV ondansetron ??2 - Patient reevaluated, reporting ongoing pain. Retroperitoneal ultrasound ordered. - Care of patient fully assumed by Dr. Calvert at end of shift Assessment and Plan: Assessment: 56 y.o. female presenting with right-sided flank pain likely related to renal colic. Has history of stone disease and has required Urology intervention in the past. Had been seen in the ED for similar symptoms roughly a month ago at which time a CT scan showed no evidence of any stone. Her urinalysis was positive for blood and WBCs at that time, prompting treatment with antibiotics, but culture was subsequently negative. Urinalysis sent today and was grossly bloody. Formal results of this are currently pending. A retroperitoneal ultrasound was ordered to evaluate for any obstruction or other acute abnormality. Patient may require formal urology consultation if pain continues to be difficult to manage or if she has positive findings on her ultrasound. Labwork was remarkable forpancytopenia, possibly related to her cirrhosis as previously felt by Hematology following a bone marrow biopsy. If any procedure is necessary she may require Hematology consultation as she states that she has needed platelet transfusion in the past. Plan: - Retroperitoneal ultrasound - Follow up urinalysis results - Possible urology and/or hematology consultations - Disposition pending Da Borrego MD Resident 11/03/16 1310 Associated attestation - Juliet Calvert MD - 11/12/2016 4:17 PM EST ED ATTENDING ATTESTATION The patient was seen in conjunction with the resident physician. I have independently performed thekey portions of the history and physical exam. I have personally reviewed nursing notes, vital signs, and diagnostic studies including labs, imaging studies and EKGs. I have discussed the details of the case with the resident and agree with the assessment and plan as described in the resident's note, unless stated otherwise in my separate note. documented in this encounter Plan of Treatment Upcoming Encounters Date Type Department Care Team (Late st Contact Info) Description 11/29/2024 1:30 PM EST Appointment XRay at [address] [place] [address] Laurent Cabrera MD [facility] [place] [address] 11/29/2024 2:20 PM EST Office [place] [address] Laurent Cabrera MD [facility] [place] [address] Scheduled Referrals Name Type Priority Associated Diagnoses Orde r Schedule Referral to General Internal Medicine Outpatient Referral Routine Hepatic cirrhosis, unspecified hepatic cirrhosis type Ordered: 11/03/2016 documented as of this encounter Procedures Procedure Name Priority Date/Time Associated Diagnosis Comments US RETROPERITONEAL COMPLETE STAT 11/03/2016 2:01 PM EST URINALYSIS WITH REFLEX CULTURE STAT 11/03/2016 12:29 PM EST SCAN, PERIPHERAL BLOOD STAT 6 10:34 AM EST HEMOGRAM STAT 11/03/2016 10:34 AM EST DIFFERENTIAL, AUTOMATED STAT 11/03/20 16 10:34 AM EST PROTHROMBIN TIME STAT 11/03/2016 10:3 4 AM EST CBC (WITH DIFF) STAT 11/03/2016 10:34 AM EST HEPATIC FUNCTION PANEL STAT 6 10:34 AM EST BASIC METABOLIC PANEL STAT 11/03/2016 10:34 AM EST documented in this encounter Results * US Retroperitoneal Complete (11/03/2016 2:01 PM EST) Anatomical Region Laterality Modality Abdomen Ultrasound 11/03/2016 1:58 PM EST Impressions 11/03/2016 2:36 PM EST ??Ultrasound Dictation: 1. ??Sonographically normal kidneys without stones or hydronephrosis. 2. ??Unremarkable partially distended urinary bladder. I have personally reviewed the image(s) and the residents interpretation and agree with the findings, Gricelda Laughlin at 11/03/2016 2:27 PM ?Gricelda Laughlin MD Electronically Signed Final Report ?? 11/03/2016 02:35 pm Narrative 11/03/2016 2:36 PM EST Renal ?(Signed Final 11/03/2016 02:35 pm) PATIENT INFO: ID #: ? [id number] ?: ??[birth year] (56 yrs) Name: ? TARA BOOTHE ?Visit Date: 11/03/2016 01:58 pm PERFORMED BY: Performed By: ? Karol Mancilla RDMS Attending: ?Qian PHIPPS, Gricelda Lyon Associate: ?Merlin PHIPPS, Tino Milian Referred By: ?JULIET CALVERT MD Secondary Phy.: ?? DA BORREGO MD Location: ? [place] SERVICE(S) PROVIDED: ??URETRO - Retroperitoneal Complete - [id number] ? [id number] INDICATIONS: ??Right flank pain, hx renal colic. COMPARISON: CT abdomen and pelvis 10/06/16 RIGHT KIDNEY: Size (cm) ?L: ??10.9 Cortical Thickness: ?Normal Cortical Echogenicity: ?? Normal Hydronephrosis: ?No sonographic evidence Comment: ?No renal calculi seen. LEFT KIDNEY: Size (cm) ?L: ??11.8 Cortical Thickness: ?Normal Cortical Echogenicity: ?? Normal Hydronephrosis: ?No sonographic evidence Comment: ?No renal calculi seen. URINARY BLADDER: Pre-void (cm) ? L: ??2.3 ? AP: ??4.5 ? TV: ??6.8 Vol (ml): ?36.9 Comment: ?Not well distended, limited views. Procedure Note Gricelda Laughlin MD - 11/03/2016 Renal (Signed Final 11/03/2016 02:35 pm) PATIENT INFO: ID #: [id number] : 60 (56 yrs) Name: TARA BOOTHE Visit Date: 11/03/2016 01:58 pm PERFORMED BY: Performed By: Karol Mancilla RDMS Attending: Gricelda Laughlin MD Associate: Tino Boyer MD Referred By: JULIET CALVERT MD Secondary Phy.: DA BORREGO MD Location: [place] SERVICE(S) PROVIDED: URETRO - Retroperitoneal Complete - [id number] INDICATIONS: Right flank pain, hx renal colic. COMPARISON: CT abdomen and pelvis 10/06/16 RIGHT KIDNEY: Size (cm) L: 10.9 Cortical Thickness: Normal Cortical Echogenicity: Normal Hydronephrosis: No sonographic evidence Comment: No renal calculi seen. LEFT KIDNEY: Size (cm) L: 11.8 Cortical Thickness: Normal Cortical Echogenicity: Normal Hydronephrosis: No sonographic evidence Comment: No renal calculi seen. URINARY BLADDER: Pre-void (cm) L: 2.3 AP: 4.5 TV: 6.8 Vol (ml): 36.9 Comment: Not well distended, limited views. IMPRESSION Ultrasound Dictation: 1. Sonographically normal kidneys without stones or hydronephrosis. 2. Unremarkable partially distended urinary bladder. I have personally reviewed the image(s) and the residents interpretation and agree with the findings, Gricelda Laughlin at 11/03/2016 2:27 PM Gricelda Laughlin MD Electronically Signed Final Report 11/03/2016 02:35 pm Juliet Calvert MD IMG US GEN ORDERABLE S * (ABNORMAL) Urinalysis with reflex Culture (11/03/2016 12:29 PM EST) Glucose, Urine Dipstick Negative Negative mg/dL [facility] Protein, Urine Dipstick 30(A) Negative mg/dL [facility] Bilirubin, Urine Dipstick Negative Negative mg/dL [facility] Comment: Clinical correlation required for positive Urine Bilirubin results as false positive may occur with some drugs and drug related products. If a false positive is suspected a serum total bilirubin should be considered if clinically indicated. Urobilinogen, Urine Dipstick Normal Normal mg/dL [facility] pH, Urn (dipstick) 7.0 5.0 - 8.0 [facility] Blood, Urine Dipstick Large(A) Negative mg/dL [facility] Ketone, Urine Dipstick Negative Negative mg/dL [facility] Nitrite, Urine Dipstick Negative Negative [facility] Leukocytes, Urine Dipstick Trace(A) Negative [facility] Appearance, Urine Dipstick Hazy(A) Clear [facility] Specific [place] Urine Automated 1.009 1.002 - 1.030 [facility] Color, Urine Dipstick Red Yellow [facility] RBC, Urine >182(H) 0 - 4 /HPF [facility] WBC, Urine 3 0 - 5 /HPF [facility] Bacteria, Urine Occasional(A ) None /HPF [facility] Squamous Epithelial Cells, Urine 5(H) <=4 /HPF [facility] Reflex to Culture No [facility] Urine specimen obtained by clean catch procedure (specimen) 11/03/2016 12:29 PM EST 11/03/2016 1:01 PM EST Narrative Resulting Agency Comment Spec In Lab Juliet Calvert MD URINE ORDERABLES [facility] [place] [address] * Scan, Peripheral Blood (11/03/2016 10:34 AM EST) Plat estimate Decreased [facility] RBC Morphology Abnormal [facility] Ovalocytes 1-5 /HPF [facility] Blood specimen (specimen) 11/03/2016 10:34 AM EST 11/03/2016 10:42 AM EST Narrative Resulting Agency Comment Spec In Lab Juliet Calvert MD HEMATOLOGY ORDERABLE S [facility] [place] [address] * (ABNORMAL) Differential, Automated (11/03/2016 10:34 AM EST) Neutrophil % 61.5 % [facility] Neutrophil Absolute 0.82(L) 1.70 - 6.10 x10(3)/[facility] Lymph % 23.3 % [facility] Lymphocytes Abs 0.3(L) 0.9 - 3.2 x10(3)/[facility] Monocyte % 11.3 % [facility] Monocyte Abs 0.2(L) 0.3 - 0.9 x10(3)/[facility] Eos % 2.3 % [facility] Eosinophils Abs 0.0 0.0 - 0.4 x10(3)/[facility] Basophil % 0.8 % [facility] Baso Absolute 0.0 0.0 - 0.1 x10(3)/[facility] Immature Gran % 0.80 % [facility] Comment: Immature granulocytes(IG's)percentage and absolute count will include metamyelocytes, myelocytes, and promyelocytes. Blood smears from CBCs yielding IG's will be scanned manually for concordance. If this scan disagrees with the automated IG or if promyelocytes are noted, a manual differential will be performed. Immature Gran Absolute 0.01 0.00 - 0.04 x10(3)/ L [facility] Blood specimen (specimen) 11/03/2016 10:34 AM EST 11/03/2016 10:42 AM EST Narrative Resulting Agency Comment Spec In Lab Juliet Calvert MD HEMATOLOGY ORDERABLE S [facility] [place] [address] * (ABNORMAL) Hemogram (11/03/2016 10:34 AM EST) White Blood Cell 1.3(Criti gee) 4.0 - 9.5 x10(3)/mc L [facility] Comment: This result has been called to MARISELA ARGUETA RN by SHARAD SHAIKH on 11 03 2016 at 1140, and has been read back. Red Blood Cell 4.14 4.00 - 5.21 x10(6)/mc L [facility] Hemoglobin 11.6(L) 11.7 - 15.5 gm/dL [facility] Hematocrit 35.8 35.7 - 45.8 % [facility] Mean Cell Volume 86.5 82.6 - 94.4 fL [facility] Mean Cell Hemoglobin 28.0 27.1 - 32.0 pg [facility] Mean Cell Hemoglobin Concentration 32.4 31.7 - 35.0 gm/dL [facility] Platelet 49(L) 145 - 357 x10(3)/mc L [facility] RDW Standard Deviation 46.4(H) 37.0 - 46.0 fL [facility] RDW coefficient of variation 14.6(H) 11.5 - 14.1 % [facility] Mean Platelet Volume 10.6 7.6 - 12.9 fL [facility] NRBC% auto 0.0 % [facility] NRBC Absolute 0.000 0.000 - 0.000 x10(3)/mc L [facility] Blood specimen (specimen) 11/03/2016 10:34 AM EST 11/03/2016 10:42 AM EST Narrative Resulting Agency Comment Spec In Lab Juliet Calvert MD HEMATOLOGY ORDERABLE S [facility] [place] [address] * (ABNORMAL) Prothrombin Time (11/03/2016 10:34 AM EST) Prothrombin Time 16.7(H) 12.0 - 15.0 sec [facility] Comment: An INR <2.0 indicates [...] depending on clinical circumstances. International Normalization Ratio 1.3(H) 0.9 - 1.1 [facility] Blood specimen (specimen) 11/03/2016 10:34 AM EST 11/03/2016 10:42 AM EST Narrative Resulting Agency Comment Spec In Lab Juliet Calvert MD HEMATOLOGY ORDERABLE S Performing Organization Address City/State/[facility] Co de Phone Number [facility] [place] [address] * Hepatic Function Panel (11/03/2016 10:34 AM EST) Pathologist [facility] Protein, Total 6.4 6.1 - 8.0 gm/dL [facility] Albumin 4.0 3.2 - 5.2 gm/dL [facility] Aspartate Aminotransferase 14 0 - 30 unit/L [facility] Alanine Aminotransferase 9 0 - 30 unit/L [facility] Alkaline Phosphatase 87 40 - 104 unit/L [facility] Bilirubin, Total 0.4 0.2 - 1.3 mg/dL [facility] Bilirubin, Direct 0.1 0.0 - 0.3 mg/dL [facility] Blood specimen (specimen) 11/03/2016 10:34 AM EST 11/03/2016 10:42 AM EST Narrative Resulting Agency Comment Spec In Lab Juliet Calvert MD CHEMISTRY ORDERABLES [facility] [place] [address] * Basic Metabolic Panel (non-fasting) (11/03/2016 10:34 AM EST) Glucose 77 65 - 199 mg/dL [facility] Comment:Diabetes: >=200 mg/d L plus symptoms Blood Urea Nitrogen 12 8 - 18 mg/dL [facility] Creatinine 0.75 0.70 - 1.20 mg/dL [facility] Comment: Please note that the pediatric reference intervals supplied above were not validated at [facility]. Results from pediatric patients should be interpreted in conjunction to the patient's age, height and muscle mass. Sodium 144 135 - 145 mmol/L [facility] Potassium 3.9 3.5 - 5.0 mmol/L [facility] Comment: Please note: ??Patients with WBC >100,000 may have falsely elevated Potassium levels. ??For accurate Potassium quantification in these patients send serum separator tube (gold top) for subsequent determinations. ??Contact the Clinical Chemistry Laboratory if there are any questions. Chloride 106 98 - 107 mmol/L [facility] Carbon Dioxide 26 22 - 31 mmol/L [facility] Anion Gap 12 5 - 15 mmol/L [facility] Calcium 8.8 8.5 - 10.5 mg/dL [facility] Est Glomerular Filtration Rate >60 >=60 [facility] Comment: This estimated [...] the following links into your internet browser. [email or web address] Blood specimen (specimen) 11/03/2016 10:34 AM EST 11/03/2016 10:42 AM EST Narrative Resulting Agency Comment Spec In Lab Juliet Calvert MD CHEMISTRY ORDERABLES [facility] [place] [address] documented in this encounter Visit Diagnoses Diagnosis Flank pain Abdominal pain, unspecified site Leukopenia, unspecified type Thrombocytopenia Thrombocytopenia, unspecified Hepatic cirrhosis, unspecified hepatic cirrhosis type documented in this encounter Administered Medications Inactive Administered Medications - up to 3 most recent administrations Medication Order MAR Action Action Date Dose Rate Site HYDROmorphone (DILAUDID) injection 1 mg 1 mg, Intravenous, ONCE, 1 dose, On Tue11/03/16 at 1237, STAT Given 11/03/2016 12:50 PM EST 1 mg HYDROmorphone (DILAUDID) injection 1 mg 1 mg, Intravenous, ONCE, 1 dose, On Tue11/03/16 at 1002, STAT Given 11/03/2016 11:00 AM EST 1 mg ipratropium-albuterol (DUONEB) 0.5 mg-3 mg(2.5 mg base)/3 mL nebulizer solution 3 mL 3 mL, Nebulization, EVERY 15 MIN PRN, 3 doses, Starting on Tue11/03/16 at 1012, Until Tue11/03/16 at 1749, Wheezing, Wheezing or SOB, STAT ondansetron (ZOFRAN) injection 4 mg 4 mg, Intravenous, ONCE, 1 dose, On Tue11/03/16 at 1056, STAT Given 11/03/2016 11:07 AM EST 4 mg ondansetron (ZOFRAN) injection 4 mg 4 mg, Intravenous, ONCE, 1 dose, On Tue11/03/16 at 1237, STAT Given 11/03/2016 12:48 PM EST 4 mg oxyCODONE (ROXICODONE) immediate release tablet 5 mg 5 mg, Oral, ONCE, 1 dose, On Tue11/03/16 at 1502, STAT Given 11/03/2016 3:33 PM EST 5 mg sodium chloride 0.9% 1,000 mL IV bolus at 4,000 mL/hr, Intravenous, ONCE, 1 dose, On Tue11/03/16 at 1002 Given 11/03/2016 10:36 AM EST 4000 mL/hr documented in this encounter Active and Recently Administered Medications Times are shown in EST. Scheduled Medication Order 11/01/2016 11/02/2016 11/03/2016 HYDROmorphone (DILAUDID) injection 1 mg (COMPLETED) 1 mg, Intravenous, ONCE, 1 dose, On Tue11/03/16 at 1237, STAT 1250 (Given - Provid er: Gil Avilez RN) HYDROmorphone (DILAUDID) injection 1 mg (COMPLETED) 1 mg, Intravenous, ONCE, 1 dose, On Tue11/03/16 at 1002, STAT 1100 (Given - Provid er: Gil Avilez RN) ondansetron (ZOFRAN) injection 4 mg (COMPLETED) 4 mg, Intravenous, ONCE, 1 dose, On Tue11/03/16 at 1056, STAT 1107 (Given - Provid er: Gil Avilez RN) ondansetron (ZOFRAN) injection 4 mg (COMPLETED) 4 mg, Intravenous, ONCE, 1 dose, On Tue11/03/16 at 1237, STAT 1248 (Given - Provid er: Gil Avilez RN) oxyCODONE (ROXICODONE) immediate release tablet 5 mg (COMPLETED) 5 mg, Oral, ONCE, 1 dose, On Tue11/03/16 at 1502, STAT 1533 (Given - Provid er: Gil Avilez RN) sodium chloride 0.9% 1,000 mL IV bolus (COMPLETED) at 4,000 mL/hr, Intravenous, ONCE, 1 dose, On Tue11/03/16 at 1002 1036 (Given - Provid er: Gil Avilez RN) PRN Medication Order 11/01/2016 11/02/2016 11/03/2016 ipratropium-albuterol (DUONEB) 0.5 mg-3 mg(2.5 mg base)/3 mL nebulizer solution 3 mL 3 mL, Nebulization, EVERY 15 MIN PRN, 3 doses, Starting on Tue11/03/16 at 1012, Until Tue11/03/16 at 1749, Wheezing, Wheezing or SOB, STAT documented in this encounter Care Teams Roll Weigher Relationship Specialty Start Date End Date Unknown None PCP - General 09/04/16 11/03/16 documented as of this encounter
--- OUTSIDE RECORDS SUMMARY | 2024-11-22 17:35 | XMS_ITS | Encounter Summary ---
Author Organization [facility] [place] [address] [place] [address] Care Team Providers Care Oceanography Teacher Name Role Phone Emigdio Centeno MD Primary Care Provider [phone] Encounter Details Date Type Department Care Team (Latest Contact Info) Description 04/02/2014 12:16 PM EDT - 04/02/2014 11:59 PM EDT Hospital Encounter MRI at [facility] [place] [phone] Cirrhosis of liver Social History Tobacco Use Types Packs/Day Years [...] Sig Dispensed Refills Start Date End Date ERGOCALCIFEROL, VITAMIN D2, (VITAMIN D ORAL) Take 1,000 Units by mouth daily. 04/18/2019 rifaximin (XIFAXIN) 550 mg Tab tablet Take 1 tablet by mouth 2 times daily. 180 tablet 3 08/15/2013 11/09/2016 OXYcodone (ROXICODONE) 5 mg immediate release tablet Take 1 tablet by mouth every 4 hours as needed for Pain. 20 tablet 0 04/30/2013 08/28/2016 escitalopram (LEXAPRO) 20 mg tabletIndications:Panc ytopenia Take 20 mg by mouth daily. Reported on 11/10/2016 11/10/2016 levothyroxine (SYNTHROID) 25 mcg tabletIndications:Panc ytopenia Take 25 mcg by mouth daily. 11/23/2016 pantoprazole (PROTONIX) 40 mg tabletIndications:Panc ytopenia Take 20 mg by mouth daily. 11/23/2016 FERROUS SULFATE, DRIED (IRON, DRIED, ORAL)Indications:Pancy topenia Take 65 mg by mouth 3 times daily. 04/18/2019 documented as of this encounter Miscellaneous Notes * Miscellaneous - Provider, Scanning - 04/17/2014 8:46 AM EDT documented in this encounter Plan of Treatment Upcoming Encounters Date Type Department Care Team (Late st Contact Info) Description 11/29/2024 1:30 PM EST Appointment XRay at [address] [place] [address] Laurent Cabrera MD [facility] [place] [address] 11/29/2024 2:20 PM EST Office Visit Orthopaedics at [facility] [place] [address] Laurent Cabrera MD [facility] [place] [address] documented as of this encounter Procedures Procedure Name Priority Date/Time Associated Diagnosis Comments MRI ABDOMEN WWO CONTRAST Routine 04/02/2014 2:06 PM EDT Cirrhosis of liver documented in this encounter Results * MRI abdomen with/WO contrast (04/02/2014 2:06 PM EDT) Anatomical Region Laterality Modality Abdomen Magnetic Resonan ce 04/02/2014 2:06 PM EDT Narrative 04/02/2014 3:54 PM EDT Examination MR ABDOMEN W/WO GADO Clinical History Cirrhosis, HCC surveillance Comparison Abdominal ultrasound 08/15/2013; CT abdomen/pelvis 04/30/2013. Technique MRI of the abdomen was acquired prior to and following intravenous administration of gadolinium using utilizing the dynamic liver protocol. IV contrast: ??Magnevist, 20 mL. Findings The liver size is normal in size and minimally nodular in contour. ??There is borderline diffuse loss of signal in the hepatic parenchyma on opposed phase gradient echo imaging, likely representing mild steatosis. ??The portal and hepatic veins are patent. ??No biliary ductal dilatation. ??The gallbladder has been removed. The timing of the arterial phase is slightly early for evaluation of hypervascular enhancing lesions, as no contrast is present in the portal vein. ?? However, no focal enhancing hepatic lesion or other suspicious observation. ??No areas of washout are seen on the portal venous phase or more delayed post contrast images. The spleen is moderately enlarged, measuring 18 cm in length. ??The splenic vein is patent and enlarged. ??No splenorenal shunt. ??No large gastric or esophageal varices are seen. There is a single small 6 mm nonenhancing splenic cyst. ??Aside from presence of pancreatic divisum, the pancreas is unremarkable. ??Adrenal glands and kidneys are normal. ??No adenopathy. ??Trace perihepatic and perisplenic ascites is seen. No suspicious marrow replacing lesion in the imaged skeleton. Impression ? 1. Hepatic cirrhosis, without visualized focal hepatic lesion or mass. ?? Evaluation for hypervascular lesions may be compromised by early timing of the arterial phase. ? 2. Probable mild hepatic steatosis. ? 3. Portal hypertension, characterized by moderate splenomegaly and trace ascites. ? 4. Pancreatic divisum. Film and interpretation reviewed by the attending Procedure Note Anthony Ochoa MD - 04/02/2014 Examination MR ABDOMEN W/WO GADO Clinical History Cirrhosis, HCC surveillance Comparison Abdominal ultrasound 08/15/2013; CT abdomen/pelvis 04/30/2013. Technique MRI of the abdomen was acquired prior to and following intravenous administration of gadolinium using utilizing the dynamic liver protocol. IV contrast: Magnevist, 20 mL. Findings The liver size is normal in size and minimally nodular in contour. Thereis borderline diffuse loss of signal in the hepatic parenchyma on opposedphase gradient echo imaging, likely representing mild steatosis. The portal and hepatic veins are patent. No biliary ductal dilatation. The gallbladderhas been removed. The timing of the arterial phase is slightly early for evaluation of hypervascular enhancing lesions, as no contrast is present in the portalvein. However, no focal enhancing hepatic lesion or other suspiciousobservation. No areas of washout are seen on the portal venous phase or more delayed post contrast images. The spleen is moderately enlarged, measuring 18 cm in length. The splenicvein is patent and enlarged. No splenorenal shunt. No large gastric oresophageal varices are seen. There is a single small 6 mm nonenhancing splenic cyst. Aside frompresence of pancreatic divisum, the pancreas is unremarkable. Adrenal glands andkidneys are normal. No adenopathy. Trace perihepatic and perisplenic ascites isseen. No suspicious marrow replacing lesion in the imaged skeleton. Impression 1. Hepatic cirrhosis, without visualized focal hepatic lesion ormass. Evaluation for hypervascular lesions may be compromised by early timing ofthe arterial phase. 2. Probable mild hepatic steatosis. 3. Portal hypertension, characterized by moderate splenomegaly andtrace ascites. 4. Pancreatic divisum. Film and interpretation reviewed by the attending Juventino Esteban MD IMG MRI ORDERABLES documented in this encounter Visit Diagnoses Diagnosis Cirrhosis of liver Cirrhosis of liver without mention of alcohol documented in this encounter Care Teams Oceanography Teacher Relationship Specialty Start Date End Date Emigdio Centeno MD [address] [place] [address] PCP - General 03/27/13 07/08/16 documented as of this encounter
--- OUTSIDE RECORDS SUMMARY | 2024-11-22 17:35 | XMS_ITS | Encounter Summary ---
Author Organization [facility] [address] [place] [address] Care Team Providers Care Seafood Farmer Name Role Phone Emigdio Centeno MD Primary Care Provider [phone] Reason for Visit * Reason Comments Medication Refill Encounter Details Date Type Department Care Team (Late Contact Info) Description 01/20/2015 [place] [phone] Sharon Mark APRN Hepatic encephalopathy; Cirrhosis of liver with ascites, unspecified hepatic cirrhosis type Social History Tobacco Use Types Packs/Day [...] 11/29/2024 1:30 PM EST Appointment XRay at [address] [place] [phone] Laurent Cabrera MD [facility] [place] [address] 11/29/2024 2:20 PM EST Office [place] [phone] Laurent Cabrera MD [facility] [place] [address] documented as of this encounter Visit Diagnoses Diagnosis Hepatic encephalopathy Cirrhosis of liver with ascites, unspecified hepatic cirrhosis type documented in this encounter Care Teams Seafood Farmer Relationship Specialty Start Date End Date Emigdio Centeno MD [address] [place] [address] PCP - General 03/27/13 07/08/16 documented as of this encounter
--- OUTSIDE RECORDS SUMMARY | 2024-11-22 17:35 | XMS_ITS | Encounter Summary ---
Author Organization [facility] [place] [address] [place] [address] Care Team Providers Care Card Grader Name Role Phone Loren Jiménez MD Primary Care Provider [phone] Encounter Details Date Type Department Care Team (Late st Contact Info) Description 11/16/2016 Telephone Gastroenterology at [facility] [place] [phone] America Michelle Social History Tobacco Use Types [...] * Telephone Encounter - Lc Matthews - 11/17/2016 9:24 AM EST Caller: Pt Call for: Dr. Smith / RN Reason for call: Pt states she has yet to receive a phone call to discuss symptoms. Still in a lot of pain, isn't able to work. Please call to discuss. Call back number: [phone] Call back urgency: high Ok to leave detailed message? yes Patient's preferred method of communication: - * Telephone Encounter - America Shepard - 11/16/2016 10:12 AM EST Caller: patient Call for: Liver Nurse Reason for call: Patient would like to discuss symptoms she is having Call back urgency: routine Ok to leave detailed message? no Patient's preferred method of communication: please call [phone] first or work number at [phone] documented in this encounter Plan of Treatment Upcoming Encounters Date Type Department Care Team (Late st Contact Info) Description 11/29/2024 1:30 PM EST Appointment XRay at [address] [place] [address] Laurent Cabrera MD [facility] [place] [address] 11/29/2024 2:20 PM EST Office [place] [phone] Laurent Cabrera MD [facility] [place] [address] documented as of this encounter Visit Diagnoses Not on filedocumented in this encounter Care Teams Card Grader Relationship Specialty Start Date End Date Loren Jiménez MD [facility] [address] [place] [address] PCP - General Family Medicine 11/04/16 11/18/16 documented as of this encounter
--- OUTSIDE RECORDS SUMMARY | 2024-11-22 17:35 | XMS_ITS | Encounter Summary ---
Author Organization [facility] [address] [place] [address] Care Team Providers Care Benefit Specialist Name Role Phone Loren Jiménez MD Primary Care Provider [phone] Encounter Details Date Type Department Care Team (Late st Contact Info) Description 11/05/2016 Abstract Internal Medicine at [facility] [address] [place] [phone] Lillian Holm, [facility] Social History Tobacco Use Types Packs/Day Years [...] 1:30 PM EST Appointment XRay at [address] [place] [phone] Laurent Cabrera MD [facility] [place] [address] 11/29/2024 2:20 PM EST Office [place] [phone] Laurent Cabrera MD [facility] [place] [address] documented as of this encounter Visit Diagnoses Not on filedocumented in this encounter Care Teams Benefit Specialist Relationship Specialty Start Date End Date Loren Jiménez MD [facility] [address] [facility] [place] [address] PCP - General Family Medicine 11/04/16 11/18/16 documented as of this encounter
--- OUTSIDE RECORDS SUMMARY | 2024-11-22 17:35 | XMS_ITS | Encounter Summary ---
Author Organization [facility] [address] [place] [address] Care Team Providers Care Acute Dialysis Nurse Name Role Phone Loren Jiménez MD Primary Care Provider [phone] Reason for Visit * Reason Onset Date Comments Splenomegaly 11/17/2016 Nausea 11/17/2016 Diarrhea 11/17/2016 Encounter Details Date Type Department Care Team (Late st Contact Info) Description 11/17/2016 Telephone Gastroenterology at [facility] [place] [phone] Sowmya Willis RN Splenomegaly; Nausea; Diarrhea Social History Tobacco Use Types Packs/Day Years [...] Encounter - Sowmya Willis RN - 11/17/2016 2:41 PM EST Spoke with Gena today regarding a few issues. She is frustrated because she feels like she is getting bounced from one provider to the next, regarding her pain. States that she met with her new primary care provider recently, as well as with pain clinic. Per patient, she walked out of the visit with Dr. Jiménez, because she doesn't need an antidepressant. I'm not depressed, I'm just frustrated because I don't feel well. Discussed with her that sometimes medications in the antidepressant category are prescribed for chronic pain. Per Dr. Smith, it may be reasonable to try amitriptyline low dose at . Will request input about this from the other providers who have seen Gena. Additionally, Gena has been experiencing about 4 days of n/v/diarrhea and is having difficulty keeping even water down. Advised that it may be best for her to seek care either with her pcp today, or in the emergency room. She likely needs IV hydration and antiemetic. 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 Addendum: Called Gena at 4:15 to follow up, advised by female who answered the phone that Gena has proceeded to the emergency room. documented in this encounter Plan of Treatment Upcoming Encounters Date Type Department Care Team (Late st Contact Info) Description 11/29/2024 1:30 PM EST Appointment XRay at [address] [place] [address] Laurent Cabrera MD [facility] [place] [address] 11/29/2024 2:20 PM EST Office [place] [address] Laurent Cabrera MD [facility] [place] [address] documented as of this encounter Visit Diagnoses Not on filedocumented in this encounter Care Teams Acute Dialysis Nurse Relationship Specialty Start Date End Date Loren Jiménez MD [facility] [address] [facility] [place] [address] PCP - General Family Medicine 11/04/16 11/18/16 documented as of this encounter
--- OUTSIDE RECORDS SUMMARY | 2024-11-22 17:35 | XMS_ITS | Encounter Summary ---
Author Organization [facility] [place] [place] [address] Care Team Providers Care Cashier Parking Lot Name Role Phone Lilliana Goyal MD, Jayden Leonardo Primary Care Provider + Reason for Visit * Reason Comments Loss of Consciousness Fever Encounter Details Date Type Department Care Team (Late st Contact Info) Description 08/28/2016 10:38 AM EDT - 08/28/2016 6:05 PM EDT [place] [address] [facility] [address] [place] [address] Pyelonephritis Discharge Disposition: Home Social History Tobacco Use [...] Sign Reading Time Taken Comments Blood Pressure 126/75 08/28/2016 5:55 PM EDT Pulse 73 08/28/2016 4:07 PM EDT Temperature 36.7 ??C (98.1 ??F) 08/28/2016 10:45 AM E DT Respiratory Rate 12 08/28/2016 4:07 PM EDT Oxygen Saturation 98% 08/28/2016 5:55 PM EDT Inhaled Oxygen Concentration - - Weight - - Height - - Body Mass Index - - documented in this encounter Discharge Instructions * Discharge Instructions* NakulJoecarmen Feliz, - 08/28/2016 5:55 PM EDT [facility] Kidney Infection: Care Instructions Your Care Instructions A kidney infection (pyelonephritis) is a type of urinary tract infection, or UTI. Most UTIs are bladder infections. Kidney infections tend to make people much sicker than bladder infections do. A kidney infection is also more serious because it can cause lasting damage if it is not treated quickly. Follow-up care is a brown part of your treatment and safety. Be sure to make and go to all appointments, and call your doctor if you are having problems. It???s also a good idea to know your test results and keep a list of the medicines you take. How can you care for yourself at home? ?? Take your antibiotics as directed. Do not stop taking them just because you feel better. You need to take the full course of antibiotics. ?? Drink plenty of water, enough so that your urine is light yellow or clear like water. This may help wash out bacteria that are causing the infection. If you have kidney, heart, or liver disease and have to limit fluids, talk with your doctor before you increase the amount of fluids you drink. ?? Urinate often. Try to empty your bladder each time. ?? To relieve pain, take a hot shower or lay a heating pad (set on low) over your lower belly. Never go to sleep with a heating pad in place. Put a thin cloth between the heating pad and your skin. To help prevent kidney infections ?? Drink plenty of water each day. This helps you urinate often, which clears bacteria from your system. If you have kidney, heart, or liver disease and have to limit fluids, talk with your doctor before you increase the amount of fluids you drink. ?? Include cranberry juice in your diet. ?? Urinate when you have the urge. Do not hold your urine for a long time. Urinate before you go tosleep. ?? If you have symptoms of a bladder infection, such as burning when you urinate or having to urinate often, call your doctor so you can treat the problem before it gets worse. If you do not treat a bladder infection quickly, it can spread to the kidney. ?? Men should keep the tip of the penis clean. If you are a woman, keep these ideas in mind: ?? Urinate right after you have sex. ?? Change sanitary pads often. Avoid douches, feminine hygiene sprays, and other feminine hygiene products that have deodorants. ?? After going to the bathroom, wipe from front to back. When should you call for help? Call your doctor now or seek immediate medical care if: ?? You have increasing pain in your back just below the rib cage. This is called flank pain. ?? You have a new or higher fever and chills. ?? You are vomiting or nauseated. Watch closely for changes in your health, and be sure to contact your doctor if: ?? Symptoms, such as burning when you urinate, get worse or get better but then come back. ?? You are not getting better after 2 days. Where can you learn more? Visit our health information library at [email or web address] You can also view health information on [employer], your personal patient account. Log in or sign up today. Enter E877 in the search box to learn more about Kidney Infection: Care Instructions. ?? [id number] [employer], [employer]. Care instructions adapted under license by [facility]. This care instruction is for use with your licensed healthcare professional. If you have questions about a medical condition or this instruction, always ask your healthcare professional. [employer] disclaims any warranty or liability for your use of this information. Content Version: 11.0.769850; Current as of: October 10, 2015 documented in this encounter Medications at Time of Discharge Medication Sig Dispensed Refills Start Date End Date ciprofloxacin (CIPRO) 500 mg Tablet Take 1 tablet by mouth 2 times daily for 12 days. 24 tablet 08/28/2016 09/09/2016 oxyCODONE (ROXICODONE) 5 mg Tablet Take 1-2 tablets by mouth every 4 hours as needed for Pain. No driving, no alcohol 8 tablet 08/28/2016 10/06/2016 RIFAXIMIN 550 mg TabletIndications:Hepati c encephalopathy take [...] as of this encounter ED Notes * Roberto Watson - 08/28/2016 12:04 PM EDT ED Resident Note Tara Yun is an 56 y.o. female who presents to the ED with: Chief Complaint Patient presents with ??? Loss of Consciousness ??? Fever I saw this patient 08/28/2016 at 11:30 HPI Tara Yun is a 56 y.o. female who presents to the Emergency Department following an episode of loss of consciousness. She reports returning to her hotel room at 10 PM last night and the last thing she remembers is standing in front of the bathroom mirror. She then awoke on the bathroom floor 4 hours later with no recollection of a fall or any preceding symptoms. She reports feeling feverishand taking an oral temperature of 103.4. She took acetaminophen to reduce her fever. She complains of 3-4 days of left flank pain, urinary urgency and hematuria. She has a history of renal stones s/pstent placement on the left in June 2015. Review of Systems: Review of Systems - General ROS: positive for - fever Psychological ROS: negative ENT ROS: negative Hematological and Lymphatic ROS: negative Endocrine ROS: negative Respiratory ROS: no cough, shortness of breath, or wheezing Cardiovascular ROS: no chest pain or dyspnea on exertion Gastrointestinal ROS: no abdominal pain, change in bowel habits, or black or bloody stools Genito-Urinary ROS: positive for - hematuria, urinary frequency/urgency and left flank pain Musculoskeletal ROS: negative Neurological ROS: no TIA or stroke symptoms Physical Exam: Patient Vitals for the past 24 hrs: BP Temp Temp src Pulse Resp SpO2 08/28/16 1045 128/62 36.7 ??C (98.1 ??F) Oral 85 14 98 % General - awake, alert, NAD Head - normocephalic/atraumatic Eyes - EOMI, PERRL Cardiovascular - RRR, no m/g/r, brisk cap refill Pulmonary - no cough; LCTAB, good air movement throughout, no w/r/r, no stridor, no retractions, noaccessory muscle use Abdomen - soft, nondistended, mild TTP on left flank, no rebound/guarding, +BS, Back - no CVA tenderness Skin - no rashes, no petechiae or bruising, no jaudice Neuro - CN II-XII grossly intact, grossly normal strength ED Course: - Patient seen under the supervision of Dr. Mota - Medications, allergies and past medical history reviewed - Given dilaudid for pain, zofran for nausea, and 2 L IVF - CT head showed no acute processes - CT abdomen pending - Labs listed below: Recent Results (from the past 24 hour(s)) Basic Metabolic Panel (non-fasting) Result Value Ref Range Glucose Lvl 98 65 - 199 mg/dL BUN 15 8 - 18 mg/dL Creatinine 0.92 0.70 - 1.20 mg/dL Sodium 140 135 - 145 mmol/L Potassium 3.7 3.5 - 5.0 mmol/L Chloride 99 98 - 107 mmol/L CO2 26 22 - 31 mmol/L Anion Gap 15 5 - 15 mmol/L Calcium 9.0 8.5 - 10.5 mg/dL Estimated GFR >60 >=60 Hepatic Function Panel Result Value Ref Range Total Protein 7.1 6.1 - 8.0 gm/dL Albumin 4.3 3.2 - 5.2 gm/dL AST 21 0 - 30 unit/L ALT 12 0 - 30 unit/L Alk Phos 90 40 - 104 unit/L Total Bilirubin 1.4 (H) 0.2 - 1.3 mg/dL Bili, Direct 0.3 0.0 - 0.3 mg/dL Lipase Result Value Ref Range Lipase 12 0 - 60 unit/L Troponin T Result Value Ref Range Troponin-T <0.03 <=0.03 ng/mL Hemogram Result Value Ref Range WBC 5.0 4.0 - 9.5 x10(3)/mcL RBC 4.34 4.00 - 5.21 x10(6)/mcL Hemoglobin 12.2 11.7 - 15.5 gm/dL Hematocrit 37.7 35.7 - 45.8 % MCV 86.9 82.6 - 94.4 fL MCH 28.1 27.1 - 32.0 pg MCHC 32.4 31.7 - 35.0 gm/dL Platelets 53 (L) 145 - 357 x10(3)/mcL RDWSD 46.0 37.0 - 46.0 fL RDWCV 14.5 (H) 11.5 - 14.1 % MPV 11.3 7.6 - 12.9 fL nRBC % Auto 0.0 % nRBC Abs Auto 0.000 0.000 - 0.000 x10(3)/mcL Differential, Automated Result Value Ref Range Neutrophils % 81.8 % Neutr Abs (ANC) 4.06 1.70 - 6.10 x10(3)/mcL Lymphocytes % 7.9 % Lymphocytes Abs 0.4 (L) 0.9 - 3.2 x10(3)/mcL Monocytes % 9.3 % Monocyte Abs 0.5 0.3 - 0.9 x10(3)/mcL Eosinophils % 0.6 % Eosinophils Abs 0.0 0.0 - 0.4 x10(3)/mcL Basophils % 0.2 % Basophils Abs 0.0 0.0 - 0.1 x10(3)/mcL Immature Gran % 0.20 % Marcie Gran Abs 0.01 0.00 - 0.04 x10(3)/mcL Blue Tube HOLD Result Value Ref Range Blue Hold Sample in lab. Gold Tube HOLD Result Value Ref Range Gold Hold Sample in lab. Urinalysis with reflex Culture Result Value Ref Range Glucose UA Negative Negative mg/dL Protein UA 30 (A) Negative mg/dL Bilirubin UA Negative Negative mg/dL Urobilinogen UA Normal Normal mg/dL pH UA 6.0 5.0 - 8.0 Blood UA Moderate (A) Negative mg/dL Ketones UA Negative Negative mg/dL Nitrite UA Negative Negative Leukocytes UA Large (A) Negative mcL Appearance UA Hazy (A) Clear Spec Lane UA 1.008 1.002 - 1.030 Color UA Yellow Yellow RBC UA 15 (H) 0 - 4 /HPF WBC UA >182 (H) 0 - 5 /HPF WBCs Clumping Few (A) None /HPF Bacteria UA Few (A) None /HPF Squam Epith UA 2 <=4 /HPF Culture Reflexed Yes Urine Hold Result Value Ref Range Urine Hold Sample in lab. Assessment and Plan: Assessment: 56 y.o. female following an episode of loss of consciousness last night and complainingof abdominal pain, urinary urgency, and hematuria. She has a hx of renal stones s/p stent placementin 2014. Concern for pyelonephritis given hx of fever, flank pain, and evidence of infection on UA. - Abdominal CT pending at time of sign-out - Signed out to Edita Garcia MD at 17:40 Roberto Watson MD Resident 08/28/16 8712 Roberto Watson MD Resident 08/28/16 7117 Associated attestation - Oni Mota DO - 08/30/2016 9:21 AM EDT ED ATTENDING ATTESTATION NOTE The patient was seen in conjunction with Dr. Watson, the resident physician. I have independently performed the brown portions of the history and physical exam. I have reviewed the nursing notes, vital signs, and all diagnostic studies personally including labs, imaging studies and EKGs. I have discussed the details of the case with the resident and agree with the assessment and plan as described in the resident note above unless noted otherwise below. Brief Summary: Pt presents with dysuria and flank pain over 4 days with progressive pain which leadto feeling light headed and nauseated at the sink when she had a syncopal episode. No cp, sob. ECG wnl and trop negative. Very unlikely cardiac at this time as pt has bilateral pyelonephritis clinically. Pt given fluids and started on abx in ED. Very significant relief of symptoms. Given hx of urologic surgical procedures ct performed to evaluate for stones which was negative. Pt hemodynamically stable and well appearing throughout stay. Given pts allergies and liver issues pt given small number of oxycodone for pain and sleep. Pt to fu with pcp early next week or return to ed if symptoms worsen. Final Assessment: Pyelonephritis * Jayden Garcia NRP - 08/28/2016 11:01 AM EDT Pt took two tylenol at 0530 documented in this encounter Miscellaneous Notes * ED Triage - Lashanda Alanis - 08/28/2016 10:45 AM EDT 56 y/o female not feeling well over past few days with fever yesterday. Left fank pain since several days, hx kidney stones. Pt got home from work last night and the next thing she remembered was waking up on her kitchen floor. C/O headache. No blood thinners. Denies CP/SOB. Skin warm/pink/dry. Respirations even, non labored. Hx dm. FS 106 per EMS. documented in this encounter Plan of Treatment Upcoming Encounters Date Type Department Care Team (Late st Contact Info) Description 11/29/2024 1:30 PM EST Appointment XRay at [address] [place] [address] Laurent Cabrera MD [facility] [place] [address] 11/29/2024 2:20 PM EST Office Visit Orthopaedics at [facility] [place] [address] Laurent Cabrera MD [facility] [place] [address] documented as of this encounter Procedures Procedure Name Priority Date/Time Associated Diagnosis Comments CT ABDOMEN AND PELVIS WO CONTRAST STAT 08/28/2016 2:40 PM EDT URINE HOLD STAT 08/28/2016 1:30 PM EDT URINALYSIS WITH REFLEX CULTURE STAT 08/28/2016 1:30 PM EDT URINE CULTURE STAT 08/28/2016 1:30 PM EDT EKG 12-LEAD STAT 08/28/2016 12:[address] HEAD WO CONTRAST (GENERIC) STAT 08/28/2016 12:08 PM EDT HEMOGRAM STAT 08/28/2016 12:00 PM EDT DIFFERENTIAL, AUTOMATED STAT 08/28/2016 12:00 PM EDT GOLD TUBE HOLD STAT 08/28/2016 12:00 PM EDT BLUE TUBE HOLD STAT 08/28/2016 12:00 PM EDT CBC (WITH DIFF) STAT 08/28/2016 12:00 PM EDT TROPONIN STAT 08/28/2016 12:00 PM EDT LIPASE STAT 08/28/2016 12:00 PM EDT HEPATIC FUNCTION PANEL STAT 08/28/2016 12:00 PM EDT BASIC METABOLIC PANEL STAT 08/28/2016 12:00 PM EDT documented in this encounter Results * CT Abdomen & Pelvis wo Contrast (08/28/2016 2:40 PM EDT) Anatomical Region Laterality Modality Abdomen, Pelvis Computed Tomogra phy Impressions 08/28/2016 5:42 PM EDT No hydronephrosis or urolithiasis. I have personally reviewed the image(s) and the residents interpretation and agree with the findings, Micheal Lagunas at 08/28/2016 5:42 PM Narrative 08/28/2016 5:42 PM EDT EXAMINATION: CT ABDOMEN AND PELVIS WO CONTRAST CLINICAL HISTORY: left flank pain w/ hx kidney stones s/p stent TECHNIQUE: Helical CT of the abdomen and pelvis was performed without the use of intravenous contrast. ??Multiplanar reformatted images were generated. COMPARISON: MRI of the abdomen dated April 02, 2014, and CT of the abdomen and pelvis with contrast dated April 30, 2013. FINDINGS: Right kidney/ureter: No collecting system dilation or calculi.. ??Unchanged 1.1 cm calcification adjacent to the right ureter overlying the psoas muscle. Left kidney/ureter: No collecting system dilation or calculi.. ??Unchanged punctate calcification within the gonadal vein adjacent to the left ureter. This examination is limited for the evaluation of solid organs and vasculature structures due to the lack of intravenous contrast. Unenhanced images of the liver, pancreas, and adrenal glands are within normal limits, with the exception of stable splenomegaly. Gallbladder: Surgically absent Lymph Nodes: No lymphadenopathy. GI tract: No bowel dilatation, mural thickening or mesenteric inflammation. Osseous structures: No suspicious lesions. Procedure Note Micheal Lagunas MD - 08/28/2016 EXAMINATION: CT ABDOMEN AND PELVIS WO CONTRAST CLINICAL HISTORY: left flank pain w/ hx kidney stones s/p stent TECHNIQUE: Helical CT of the abdomen and pelvis was performed without theuse of intravenous contrast. Multiplanar reformatted images were generated. COMPARISON: MRI of the abdomen dated April 02, 2014, and CT of the abdomenand pelvis with contrast dated April 30, 2013. FINDINGS: Right kidney/ureter: No collecting system dilation or calculi.. Unchanged1.1 cm calcification adjacent to the right ureter overlying the psoasmuscle. Left kidney/ureter: No collecting system dilation or calculi..Unchanged punctate calcification within the gonadal vein adjacent to the leftureter. This examination is limited for the evaluation of solid organs andvasculature structures due to the lack of intravenous contrast. Unenhanced images of the liver, pancreas, and adrenal glands are withinnormal limits, with the exception of stable splenomegaly. Gallbladder: Surgically absent Lymph Nodes: No lymphadenopathy. GI tract: No bowel dilatation, mural thickening or mesentericinflammation. Osseous structures: No suspicious lesions. IMPRESSION No hydronephrosis or urolithiasis. I have personally reviewed the image(s) and the residents interpretationand agree with the findings, Micheal Lagunas at 08/28/2016 5:42 PM Oni Mota DO IMG CT ORDERABLES * (ABNORMAL) Urine culture (08/28/2016 1:30 PM EDT) Urine Culture 50,000-99,000 cfu/ml Escherichia coli(A) [facility] Organism Escherichia coli(A) [facility] Urine specimen obtained by clean catch procedure (specimen) 08/28/2016 1:30 PM EDT 08/28/2016 3:21 PM EDT Narrative Resulting Agency Comment Spec In Lab Organism Antibiotic Method Susceptibility Escherichia coli Amikacin MICROSCAN METHOD Sensitive Escherichia coli Ampicillin MICROSCAN METHOD Sensitive Escherichia coli Ampicillin + Sulbactam MICROSCAN METH OD Sensitive Escherichia coli Aztreonam MICROSCAN METHOD Sensitive Escherichia coli Cefazolin MICROSCAN METHOD Sensitive Escherichia coli Cefepime MICROSCAN METHOD Sensitive Escherichia coli Ceftazidime MICROSCAN METHOD Sensitive Escherichia coli Ceftriaxone MICROSCAN METHOD Sensitive Escherichia coli Cefuroxime MICROSCAN METHOD Sensitive Escherichia coli Ciprofloxacin MICROSCAN METHOD Sensitive Escherichia coli Gentamicin MICROSCAN METHOD Sensitive Escherichia coli Levofloxacin MICROSCAN METHOD Sensitive Escherichia coli Meropenem MICROSCAN METHOD Sensitive Escherichia coli Nitrofurantoin MICROSCAN METHOD Sensitive Escherichia coli Piperacillin/Tazobactam MICROSCAN MET HOD Sensitive Escherichia coli Tetracycline MICROSCAN METHOD Sensitive Escherichia coli Tobramycin MICROSCAN METHOD Sensitive Escherichia coli Trimethoprim/Sulfa MICROSCAN METHOD Sensitive Oni Mota DO MICROBIOLOGY - GENER AL ORDERABLES [facility] [place] [address] * Urine Hold (08/28/2016 1:30 PM EDT) Hold, Urine Sample in lab. [facility] Urine specimen (specimen) Urine / Unknown 08/28/2016 1:30 PM EDT 08/28/2016 1:47 PM EDT Oni Mota DO URINE ORDERABLES [facility] [place] [address] * (ABNORMAL) Urinalysis with reflex Culture (08/28/2016 1:30 PM EDT) Glucose, Urine Dipstick Negative Negative mg/dL [facility] Protein, Urine Dipstick 30(A) Negative mg/dL [facility] Bilirubin, Urine Dipstick Negative Negative mg/dL [facility] Comment: Clinical correlation required for positive Urine Bilirubin results as false positive may occur with some drugs and drug related products. If a false positive is suspected a serum total bilirubin should be considered if clinically indicated. Urobilinogen, Urine Dipstick Normal Normal mg/dL [facility] pH, Urn (dipstick) 6.0 5.0 - 8.0 [facility] Blood, Urine Dipstick Moderate(A) Negative mg/dL [facility] Ketone, Urine Dipstick Negative Negative mg/dL [facility] Nitrite, Urine Dipstick Negative Negative [facility] Leukocytes, Urine Dipstick Large(A) Negative [facility] Appearance, Urine Dipstick Hazy(A) Clear [facility] Specific Lane Urine Automated 1.008 1.002 - 1.030 [facility] Color, Urine Dipstick Yellow Yellow [facility] RBC, Urine 15(H) 0 - 4 /HPF [facility] WBC, Urine >182(H) 0 - 5 /HPF [facility] WBC Clumps, Urine Few(A) None /HPF [facility] Bacteria, Urine Few(A) None /HPF [facility] Squamous Epithelial Cells, Urine 2 <=4 /HPF [facility] Reflex to Culture Yes [facility] Urine specimen obtained by clean catch procedure (specimen) 08/28/2016 1:30 PM EDT 08/28/2016 1:46 PM EDT Narrative Resulting Agency Comment Spec In Lab Oni P Nakul DO URINE ORDERABLES Performing Organization Address [facility] Co de Phone Number [facility] [place] [address] * EKG 12 Lead (08/28/2016 12:44 PM EDT) Ventricular rate 75 BPM MUSE SYSTEM Atrial Rate 75 BPM MUSE SYSTEM P-R Interval 152 ms MUSE SYSTEM QRS Duration 90 ms MUSE SYSTEM Q-T Interval 394 ms MUSE SYSTEM QTC Calculated (Bezet) 439 ms MUSE SYSTEM Calculated P [place] 58 degrees MUSE SYSTEM Calculated R [place] 56 degrees MUSE SYSTEM Calculated T [place] 58 degrees MUSE SYSTEM INTERPRETATION Normal sinus rhythm Nonspecific T wave abnormality Abnormal ECG No previous ECGs available Confirmed by MD Giovanni, Wild Cisneros ([id number]) on 08/29/2016 11:02:06 AM MUSE SYSTEM 08/28/2016 12:4 4 PM EDT 08/29/2016 11:02 AM EDT Oni Mota DO ECG ORDERABLES Performing Organization Address [facility] Co de Phone Number MUSE SYSTEM * CT Head wo Contrast (Generic) (08/28/2016 12:08 PM EDT) Anatomical Region Laterality Modality Head Computed Tomogra phy Impressions 08/28/2016 1:25 PM EDT 1. ??No evidence for acute cortical infarction or other acute cranial process. 2. ??Greater than unexpected parenchymal volume loss at the vertex for age. Narrative 08/28/2016 1:25 PM EDT EXAMINATION: CT HEAD WO CONTRAST (GENERIC) CLINICAL HISTORY: Syncope TECHNIQUE: CT Head was performed without contrast COMPARISON: None FINDINGS: There is no acute intracranial hemorrhage. The wu-white differentiation is preserved. There is no mass effect, midline shift or extra-axial fluid collection. Generalized parenchymal volume loss with commensurate enlargement of ventricles and widening of the sulci. Particular prominence of extra-axial spaces at the vertex. The visualized paranasal sinuses and mastoid air cells are clear. The visualized orbits are unremarkable in appearance. ?? No calvarial fracture or significant extracalvarial soft tissue swelling. Procedure Note Loren Landis MD - 08/28/2016 EXAMINATION: CT HEAD WO CONTRAST (GENERIC) CLINICAL HISTORY: Syncope TECHNIQUE: CT Head was performed without contrast COMPARISON: None FINDINGS: There is no acute intracranial hemorrhage. The wu-white differentiation is preserved. There is no mass effect, midline shift or extra-axial fluid collection. Generalized parenchymal volume loss with commensurate enlargement of ventricles and widening of the sulci.Particular prominence of extra-axial spaces at the vertex. The visualized paranasalsinuses and mastoid air cells are clear. The visualized orbits are unremarkablein appearance. No calvarial fracture or significant extracalvarial softtissue swelling. IMPRESSION 1. No evidence for acute cortical infarction or other acute cranialprocess. 2. Greater than unexpected parenchymal volume loss at the vertex forage. Oni Mota DO IMG CT ORDERABLES * Gold Tube HOLD (08/28/2016 12:00 PM EDT) Gold Hold Sample in lab. [facility] Blood specimen (specimen) Venous Draw / Unknown 08/28/2016 12:00 PM EDT 08/28/2016 12:06 PM EDT Oni Mota DO CHEMISTRY ORDERABLES Performing Organization Address City/[facility]/ZIP Co de Phone Number [facility] [place] [address] * Blue Tube HOLD (08/28/2016 12:00 PM EDT) Blue Hold Sample in lab. [facility] Blood specimen (specimen) Venous Draw / Unknown 08/28/2016 12:00 PM EDT 08/28/2016 12:06 PM EDT Oni Mota DO HEMATOLOGY ORDERABLE S Performing Organization Address City/[facility]/ZIP Co de Phone Number [facility] [place] [address] * (ABNORMAL) Differential, Automated (08/28/2016 12:00 PM EDT) Neutrophil % 81.8 % [facility] Neutrophil Absolute 4.06 1.70 - 6.10 x10(3)/[facility] LABORATORY Lymph % 7.9 % [facility] Lymphocytes Abs 0.4(L) 0.9 - 3.2 x10(3)/[facility] LABORATORY Monocyte % 9.3 % [facility] Monocyte Abs 0.5 0.3 - 0.9 x10(3)/[facility] LABORATORY Eos % 0.6 % [facility] Eosinophils Abs 0.0 0.0 - 0.4 x10(3)/[facility] LABORATORY Basophil % 0.2 % [facility] Baso Absolute 0.0 0.0 - 0.1 x10(3)/[facility] LABORATORY Immature Gran % 0.20 % [facility] Comment: Immature granulocytes(IG's)percentage and absolute count will include metamyelocytes, myelocytes, and promyelocytes. Blood smears from CBCs yielding IG's will be scanned manually for concordance. If this scan disagrees with the automated IG or if promyelocytes are noted, a manual differential will be performed. Immature Gran Absolute 0.01 0.00 - 0.04 x10(3)/[facility] LABORATORY Blood specimen (specimen) 08/28/2016 12:00 PM EDT 08/28/2016 12:05 PM EDT Narrative Resulting Agency Comment Spec In Lab Oni Mota DO HEMATOLOGY ORDERABLE S [facility] [place] [address] * (ABNORMAL) Hemogram (08/28/2016 12:00 PM EDT) White Blood Cell 5.0 4.0 - 9.5 x10(3)/[facility] LABORATORY Red Blood Cell 4.34 4.00 - 5.21 x10(6)/[facility] LABORATORY Hemoglobin 12.2 11.7 - 15.5 gm/dL [facility] Hematocrit 37.7 35.7 - 45.8 % [facility] Mean Cell Volume 86.9 82.6 - 94.4 fL [facility] Mean Cell Hemoglobin 28.1 27.1 - 32.0 pg [facility] Mean Cell Hemoglobin Concentration 32.4 31.7 - 35.0 gm/dL [facility] Platelet 53(L) 145 - 357 x10(3)/mc L [facility] RDW Standard Deviation 46.0 37.0 - 46.0 fL [facility] RDW coefficient of variation 14.5(H) 11.5 - 14.1 % [facility] Mean Platelet Volume 11.3 7.6 - 12.9 fL [facility] NRBC% auto 0.0 % [facility] NRBC Absolute 0.000 0.000 - 0.000 x10(3)/mc L [facility] Blood specimen (specimen) 08/28/2016 12:00 PM EDT 08/28/2016 12:05 PM EDT Narrative Resulting Agency Comment Spec In Lab Oni Mota DO HEMATOLOGY ORDERABLE S Performing Organization Address City/State/[facility] Co de Phone Number [facility] [place] [address] * Troponin T (08/28/2016 12:00 PM EDT) Troponin-T <0.03 <=0.03 ng/mL [facility] Comment: 0.03 ng/mL: Represents the 99th percentile upper reference limit for normals. >0.03 ng/mL: Elevated cardiac troponin T level indicative of myocardial damage. Diagnosis of acute, evolving or recent MO requires a typical rise and gradual fall [...] consensus document of the Joint Society of Cardiology/[place] [employer] Committee for the redefinition of myocardial infarction. ??Journal of the [place] College [employer] 2000; 36: 959-969] Blood specimen (specimen) 08/28/2016 12:00 PM EDT 08/28/2016 12:05 PM EDT Narrative Resulting Agency Comment Spec In Lab Oni P Nakul DO CHEMISTRY ORDERABLES Performing Organization Address [facility]/ZIP Co de Phone Number [facility] [place] [address] * Lipase (08/28/2016 12:00 PM EDT) Lipase 12 0 - 60 unit/L [facility] Blood specimen (specimen) 08/28/2016 12:00 PM EDT 08/28/2016 12:05 PM EDT Narrative Resulting Agency Comment Spec In Lab Oni P Nakul DO CHEMISTRY ORDERABLES Performing Organization Address [facility] Co de Phone Number [facility] [place] [address] * (ABNORMAL) Hepatic Function Panel (08/28/2016 12:00 PM EDT) Protein, Total 7.1 6.1 - 8.0 gm/dL [facility] Albumin 4.3 3.2 - 5.2 gm/dL [facility] Aspartate Aminotransferase 21 0 - 30 unit/L [facility] Alanine Aminotransferase 12 0 - 30 unit/L [facility] Alkaline Phosphatase 90 40 - 104 unit/L [facility] Bilirubin, Total 1.4(H) 0.2 - 1.3 mg/dL [facility] Bilirubin, Direct 0.3 0.0 - 0.3 mg/dL [facility] Blood specimen (specimen) 08/28/2016 12:00 PM EDT 08/28/2016 12:05 PM EDT Narrative Resulting Agency Comment Spec In Lab Oni Mota DO CHEMISTRY ORDERABLES [facility] [place] [address] * Basic Metabolic Panel (non-fasting) (08/28/2016 12:00 PM EDT) Glucose 98 65 - 199 mg/dL [facility] Comment:Diabetes: >=200 mg/d L plus symptoms Blood Urea Nitrogen 15 8 - 18 mg/dL [facility] Creatinine 0.92 0.70 - 1.20 mg/dL [facility] Comment: Please note that the pediatric reference intervals supplied above were not validated at [facility]. Results from pediatric patients should be interpreted in conjunction to the patient's age, height and muscle mass. Sodium 140 135 - 145 mmol/L [facility] Potassium 3.7 3.5 - 5.0 mmol/L [facility] Comment: Please note: ??Patients with WBC >100,000 may have falsely elevated Potassium levels. ??For accurate Potassium quantification in these patients send serum separator tube (gold top) for subsequent determinations. ??Contact the Clinical Chemistry Laboratory if there are any questions. Chloride 99 98 - 107 mmol/L [facility] Carbon Dioxide 26 22 - 31 mmol/L [facility] Anion Gap 15 5 - 15 mmol/L [facility] [...] the following links into your internet browser. [email or web address] Blood specimen (specimen) 08/28/2016 12:00 PM EDT 08/28/2016 12:05 PM EDT Narrative Resulting Agency Comment Spec In Lab Oni Mota DO CHEMISTRY ORDERABLES [facility] [place] [address] documented in this encounter Visit Diagnoses Diagnosis Pyelonephritis Pyelonephritis, unspecified documented in this encounter Administered Medications Inactive Administered Medications - up to 3 most recent administrations Medication Order MAR Action Action Date Dose Rate Site cefTRIAXone (ROCEPHIN) 1g in dextrose 5% 50mL 1 g, Intravenous, ONCE, 1 dose, On 08/28/16 at 1657, Administer over 30 Minutes, Indication for (Active or Suspected): Urinary Tract/Pyelonephritis Given 08/28/2016 5:03 PM EDT 1 g 100 mL/hr HYDROmorphone (DILAUDID) injection 0.4 mg 0.4 mg, Intravenous, ONCE, 1 dose, On 08/28/16 at 1317, STAT Given 08/28/2016 1:33 PM EDT 0.4 mg HYDROmorphone (DILAUDID) injection 0.4 mg 0.4 mg, Intravenous, ONCE, 1 dose, On 08/28/16 at 1656, STAT Given 08/28/2016 4:59 PM EDT 0.4 mg HYDROmorphone (DILAUDID) tablet 2 mg 2 mg, Oral, EVERY 4 HOURS PRN, Starting on 08/28/16 at 1222, Until 08/28/16 at 1654, Pain, Routine Given 08/28/2016 4:11 PM EDT 2 mg Given 08/28/2016 12:26 PM EDT 2 mg sodium chloride 0.9% 2,000 mL IV bolus at 666.7 mL/hr, Intravenous, ONCE, 1 dose, On 08/28/16 at 1317 Given 08/28/2016 1:23 PM EDT 66 6.7 mL/hr documented in this encounter Active and Recently Administered Medications Times are shown in EDT. Scheduled Medication Order 08/26/2016 08/27/2016 08/28/2016 cefTRIAXone (ROCEPHIN) 1g in dextrose 5% 50mL (COMPLETED) 1 g, Intravenous, ONCE, 1 dose, On 08/28/16 at 1657, Administer over 30 Minutes, Indication for (Active or Suspected): Urinary Tract/Pyelonephritis 1703 (Given - Provid er: Jayden Garcia NRP) HYDROmorphone (DILAUDID) injection 0.4 mg (COMPLETED) 0.4 mg, Intravenous, ONCE, 1 dose, On 08/28/16 at 1317, STAT 1333 (Given - Provid er: Jayden Garcia NRP) HYDROmorphone (DILAUDID) injection 0.4 mg (COMPLETED) 0.4 mg, Intravenous, ONCE, 1 dose, On 08/28/16 at 1656, STAT 1659 (Given - Provid er: Jayden Garcia NRP) sodium chloride 0.9% 2,000 mL IV bolus (COMPLETED) at 666.7 mL/hr, Intravenous, ONCE, 1 dose, On 08/28/16 at 1317 1323 (Given - Provid er: Jayden Garcia NRP) PRN Medication Order 08/26/2016 08/27/2016 08/28/2016 HYDROmorphone (DILAUDID) tablet 2 mg (CANCELED) 2 mg, Oral, EVERY 4 HOURS PRN, Starting on 08/28/16 at 1222, Until 08/28/16 at 1654, Pain, Routine 1226 (Given - Provid er: Jayden Garcia NRP)1611 (Given - Provider: Jayden Garcia NRP) documented in this encounter Care Teams [employer] Relationship Specialty Start Date End Date Jayden Tijerina Jr., MD [address] [place] [id number] PCP - General Family Medicine 07/09/16 09/03/16 documented as of this encounter
--- OUTSIDE RECORDS SUMMARY | 2024-11-22 17:35 | XMS_ITS | Encounter Summary ---
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 Social History Tobacco Use Types Packs/Day Years [...] Reading Time Taken Comments Blood Pressure 124/71 11/10/2016 3:03 PM EST Pulse 76 11/10/2016 3:03 PM EST Temperature - - Respiratory Rate - - Oxygen Saturation - - Inhaled Oxygen Concentration - - Weight 92.1 kg (203 lb) 11/10/2016 3:03 PM EST Height 162.6 cm (5' 4) 11/10/2016 3:03 PM EST Body Mass Index 34.84 11/10/2016 3:03 PM EST documented in this encounter Progress Notes * Ijeoma Singer MD - 11/10/2016 3:00 PM EST Gastroenterology and Hepatology Follow Up Note Patient: Rissa Yun : 1960 Provider: Ijeoma Singer MD Problem List: Cirrhosis Likely due to [...] currently disabled for knee issues Interval History: Comes in to establish care for cirrhosis likely related to QUIROZ. She was previously seen in 2013 and had moved from the area and now is back. Since last seen here she lost over 30 lbs over past 3 years. She thinks this is due to stopping seroquel. She denies any symptoms of hepatic encephalopathy. She is not taking lactulose due to diarrhea. 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 She suffers from low back pain. She had been on oxycodone 5mg once daily with reasonable relief, but this was weaned off. She recently went to the ED for flank pain and hematuria, no stone was seen on CT. Current Outpatient Prescriptions Medication Sig Dispense Refill ??? fluticasone (FLOVENT) 110 mcg/actuation HFA Aerosol Inhaler Inhale 1 puff into the lungs 2 times daily. ??? fluticasone (FLONASE) 50 mcg/actuation [place], Suspension 1 spray 2 times daily. Reported [...] Take by mouth daily. Reported on 11/08/2016 ??? FERROUS SULFATE, DRIED (IRON, DRIED, ORAL) Take 65 mg by mouth daily. No current facility-administered medications for this visit. Vitals: 12/21/16 1503 BP: 124/71 Pulse: 76 Weight: 92.1 kg (203 lb) Height: 162.6 cm (5' 4) Body mass index is 34.84 kg/(m^2). Lab Results Component Value Date NA 142 11/08/2016 K 4.0 11/08/2016 CL 103 11/08/2016 CO2 28 11/08/2016 BUN 9 11/08/2016 CREATININE 0.90 11/08/2016 GLUCOSE 96 11/08/2016 CALCIUM 9.2 11/08/2016 Lab Results Component Value Date ALT 12 11/08/2016 AST 15 11/08/2016 ALKPHOS 93 11/08/2016 BILITOT 0.4 11/08/2016 BILIDIR 0.1 11/08/2016 ALBUMIN 4.1 11/08/2016 PROT 6.9 11/08/2016 Lab Results Component Value Date WBC 1.6 (CRIT) 11/08/2016 HGB 12.3 11/08/2016 HCT 37.4 11/08/2016 MCV 85.2 11/08/2016 PLATELET 56 (L) 11/08/2016 Lab Results Component Value Date INR 1.3 (H) 11/03/2016 MELD=9 Exam: Looks well Chest- clear Heart- RRR, nl s1, s2 Abd- normal bs's, soft, non tender, +splenomegaly Assessment and Plan: 56 y.o. female with cirrhosis likely due to QUIROZ with marked hypersplenism causing pancytopenia con history of hepatic encephalopathy. Her main complaint currently is low back pain. She has lost a fair amount of weight since he was last seen here and this is likely improving the fatty liver, but the portal htn generally will not improve. Recommendations: -needs EGD to screen for varices -need imaging for screen for HCC as most recent studies were all non contrast, will get RUQ US withvascular -encouraged ongoing weight loss or at least maintenance of the weight she has lost -since she was diagnosed with HE when she was on multiple psychiatric meds and narcotics, it is possible she may now no longer need Rifaximin. I would like to try having her come off, but will hold off until after her pain clinic visit. She may resume narcotics for back pain and would be best to wait till she is stable on that. -for chronic pain she may take up to 2gm/day of tylenol. NSAIDs should be avoided given portal gastropathy and concern for renal injury in the setting of portal htn. Low dose narcotics are reasonableif deemed appropriate by pain clinic. -I will see her at time of EGD -Clinic follow up 6 months after EGD/US; labs at that time: cbc, cmp, hgba1c, fasting lipids Ijeoma Singer MD Section of Gastroenterology & Hepatology [address] [place] [id number] Greater than 50% of this 30 minute visit was spent in discussion. Cc: Loren Jiménez MD documented in this encounter Plan of Treatment Upcoming Encounters Date Type Department Care Team (Late st Contact Info) Description 11/29/2024 1:30 PM EST Appointment XRay at [address] [place] [address] Laurent Cabrera MD [facility] [place] [address] 11/29/2024 2:20 PM EST Office [place] [phone] Laurent Cabrera MD [facility] [place] [address] documented as of this encounter Results * US Abdomen Complete [...] 11:39 am) PATIENT INFO: ID #: ? [id number] ? : [birth year] (57 yrs) Name: ? RISSA YUN ? Visit Date:08/31/2017 10:43 am PERFORMED BY: Performed By: ? Lester Chan RDMS Attending: ?Elliott PHIPPS, Brenda Alfaro Referred By: ?IJEOMA SINGER Location: ? [facility] SERVICE(S) PROVIDED: ??UABDCVASC - Abdominal Complete Survey with Vascular - [id number], [id number] ??[id number] INDICATIONS: ??Cirrhosis: survey for Hepatocellular carcinoma, ??evaluate [...] where seen Vein: Portal Vein At ?[facility] [place]: Main Portal ? 32.2 ?Patent Vein: Right Portal ?Patent Vein: Left Portal Vein: ? Patent Splenic Vein At ? [facility] [place]: Splenic Vein: ? Nonocclusive ? thrombus IVC: [...] 08/31/2017 11:39 am) PATIENT INFO: ID #: [id number] : 60 (57 yrs) Name: RISSA YUN Visit Date:08/31/2017 10:43 am PERFORMED BY: Performed By: Lester Chan RDMS Attending: Brenda Gallagher MD Referred By: IJEOMA SINGER Location: [facility] SERVICE(S) PROVIDED: UABDCVASC - Abdominal Complete Survey with Vascular - [id number], [id number] INDICATIONS: Cirrhosis: survey for Hepatocellular carcinoma, evaluate for complications of portal hypertension including portal zoe thrombosis COMPARISON: Prior CT: AB PEL 12/16/16 HEPATIC-PORTAL DUPLEX: PSV EDV RI Waveform (cm/s) (cm/s) Hepatic Artery: 45.9 7.98 0.83 Patent Right Hepatic Patent where seen Vein: Middle Hepatic Patent where seen Vein: Left Hepatic Patent where seen Vein: Portal Vein At [facility] [place]: Main Portal 32.2 Patent Vein: Right Portal Patent Vein: Left Portal Vein: Patent Splenic Vein At [facility] [place]: Splenic Vein: Nonocclusive thrombus IVC: Patent Direction [...] Report 08/31/2017 11:39 am Ijeoma Singer MD [facility] GEN ORDERABLE S documented in this encounter Visit Diagnoses Diagnosis 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
--- OUTSIDE RECORDS SUMMARY | 2024-11-22 17:35 | XMS_ITS | Encounter Summary ---
Author Organization [facility] Address [facility] [place] [place] [address] Care Team Providers Care Limousine Rental Clerk Name Role Phone Loren Jiménez MD Primary Care Provider [phone] Reason for Visit * Reason Comments Abdominal Pain Encounter Details Date Type Department Care Team (Late st Contact Info) Description 11/17/2016 3:33 PM EST - 11/17/2016 10:42 PM EST Emergency Emergency Department [facility] [place] [id number] Ruth Ortega MD [facility] [address] [place] [address] LUQ abdominal pain; Splenic vein thrombosis; Splenomegaly; Cirrhosis of liver without mention of alcohol Discharge Disposition: Home Social History Tobacco Use [...] Sign Reading Time Taken Comments Blood Pressure 124/82 11/17/2016 10:31 PM EST Pulse 75 11/17/2016 10:31 PM EST Temperature 36.9 ??C (98.4 ??F) 11/17/2016 10:[address] Respiratory Rate 16 11/17/2016 10:31 PM EST Oxygen Saturation 96% 11/17/2016 10:31 PM EST Inhaled Oxygen Concentration - - Weight 90.7 kg (200 lb) 11/17/2016 3:44 PM EST Height - - Body Mass Index 34.33 11/12/2016 9:16 AM EST documented in this encounter Discharge Instructions * Discharge Instructions* Ruth Ramos - 11/17/2016 9:21 PM EST You were seen in the emergency department for left upper quadrant abdominal pain. You have been prescribed oxycodone and zofran. Please take this as prescribed. You cannot drive or operate heavy machinery while you are taking opiates. Please Call the GI clinic and arrange for follow up of your splenic vein thrombosis. You should also follow up with your primary care doctor in the next 2 days. Please return to the emergency department if you develop any fevers, chest pain, shortness of breath, feeling like you are going to pass out or passing out, unusual weakness or numbness, blurred or double vision, headache, or have worsening of your current symptoms or develop new symptoms that are concerning to you and require immediate attention. documented in this encounter Medications at Time [...] Pain. No driving, no alcohol 10 tablet 11/17/2016 11/20/2016 ondansetron (ZOFRAN, HYDROCHLORIDE,) 4 mg Tablet Take 1-2 tablets by mouth every 8 hours as needed for Nausea. 12 tablet 11/17/2016 11/19/2016 fluticasone (FLOVENT) 110 mcg/actuation HFA Aerosol Inhaler [...] as of this encounter ED Notes * Yakov Galaviz RN - 11/17/2016 8:43 PM EST Pt updated on plan of care, MD Ramos to speak with pt about lab/CT results and admission. Pt resting in bed in [facility] at this time. * Lashanda Alanis - 11/17/2016 7:30 PM EST Pt to CT. * Ruth Ramos - 11/17/2016 4:43 PM EST Tara Yun is an 56 y.o. female who presents to the ED with: Chief Complaint Patient presents with ??? Abdominal Pain I saw this patient 11/17/2016 at 11:57 PM HPI Tara Yun is a 56 y.o. female with history of splenomegaly, hepatitis C, pancytopenia, cirrhosis, MGUS, who presents to the Emergency Department with complaints of left upper quadrant abdominalpain. According to the pain patient, last night at approximately 4:30 PM she developed acute onset left upper quadrant abdominal pain which radiates into her back and down into her left flank. She has had nausea and vomiting as well as diarrhea, she denies fevers or chills. She denies any recent falls or trauma. No dysuria, no blood in her vomit or diarrhea. No chest pain or shortness of breath, no unilateral weakness or numbness. She does endorse night sweats, labile temperatures. Review of Systems: Review of Systems Constitutional: Positive for appetite change, diaphoresis and fever. HENT: Negative for congestion. Eyes: Negative for visual disturbance. Respiratory: Negative for shortness of breath. Cardiovascular: Negative for chest pain. Gastrointestinal: Positive for abdominal pain, nausea and vomiting. Genitourinary: Positive for flank pain. Musculoskeletal: Negative for back pain and gait problem. Skin: Negative for rash. Neurological: Negative for syncope and weakness. Hematological: Does not bruise/bleed easily. Psychiatric/Behavioral: Negative for confusion. Last value Range last 24 hrs Temperature Temp: 36.9 ??C (98.4 ??F) Temp: [36.9 ??C (98.4 ??F)-37 ??C (98.6 ??F)] Heart Rate Heart Rate: 75 Heart Rate: [75-94] Blood Pressure BP: 124/82 BP: (112-124)/(82) Respiratory Rate Resp: 16 Resp: [16-18] SpO2 SpO2: 96 % SpO2: [96 %-97 %] Art BP BP (Arterial Line): -- Physical Exam: Physical Exam Constitutional: She is oriented to person, place, and time. She appears well- developed and well-nourished. No distress. HENT: Head: Normocephalic and atraumatic. Mouth/Throat: Oropharynx is clear and moist. Eyes: EOM are normal. Pupils are equal, round, and reactive to light. Neck: Normal range of motion. Neck supple. Cardiovascular: Normal rate, regular rhythm and intact distal pulses. Pulmonary/Chest: Effort normal and breath sounds normal. She has no wheezes. She has no rales. Abdominal: Soft. There is splenomegaly. There is tenderness in the left upper quadrant. There is norebound and no guarding. Neurological: She is alert and oriented to person, place, and time. Skin: Skin is warm and dry. No rash noted. She is not diaphoretic. Psychiatric: She has a normal mood and affect. Nursing note and vitals reviewed. ED Course: - Patient was evaluated and discussed with Dr. Ortega - Medications, allergies and past medical history reviewed - Medications and fluids administered: dilaudid, NS, zofran I reviewed the CT images: CT Abdomen & Pelvis w Contrast Final Result No splenic infarct or hemorrhage is detected. 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 Marked splenomegaly without change. Dr. Ramos is aware of these findings. I reviewed the patient's labwork: Recent Results (from the past 24 hour(s)) Basic Metabolic Panel (non-fasting) Result Value Ref Range Glucose Lvl 83 65 - 199 mg/dL BUN 9 8 - 18 mg/dL Creatinine 0.84 0.70 - 1.20 mg/dL Sodium 143 135 - 145 mmol/L Potassium 3.8 3.5 - 5.0 mmol/L Chloride 105 98 - 107 mmol/L CO2 28 22 - 31 mmol/L Anion Gap 10 5 - 15 mmol/L Calcium 8.8 8.5 - 10.5 mg/dL Estimated GFR >60 >=60 Hepatic Function Panel Result Value Ref Range Total Protein 6.7 6.1 - 8.0 gm/dL Albumin 4.0 3.2 - 5.2 gm/dL AST 16 0 - 30 unit/L ALT 15 0 - 30 unit/L Alk Phos 93 40 - 104 unit/L Total Bilirubin 0.8 0.2 - 1.3 mg/dL Bili, Direct 0.2 0.0 - 0.3 mg/dL Lipase Result Value Ref Range Lipase 14 0 - 60 unit/L Prothrombin Time Result Value Ref Range PT 16.7 (H) 12.0 - 15.0 sec INR 1.3 (H) 0.9 - 1.1 APTT Result Value Ref Range PTT 30 25 - 35 sec Hemogram Result Value Ref Range WBC 1.5 (CRIT) 4.0 - 9.5 x10(3)/mcL RBC 4.14 4.00 - 5.21 x10(6)/mcL Hemoglobin 12.1 11.7 - 15.5 gm/dL Hematocrit 35.8 35.7 - 45.8 % MCV 86.5 82.6 - 94.4 fL MCH 29.2 27.1 - 32.0 pg MCHC 33.8 31.7 - 35.0 gm/dL Platelets 53 (L) 145 - 357 x10(3)/mcL RDWSD 46.5 (H) 37.0 - 46.0 fL RDWCV 14.6 (H) 11.5 - 14.1 % MPV 10.6 7.6 - 12.9 fL nRBC % Auto 0.0 % nRBC Abs Auto 0.000 0.000 - 0.000 x10(3)/mcL Differential, Automated Result Value Ref Range Neutrophils % 69.2 % Neutr Abs (ANC) 1.06 (L) 1.70 - 6.10 x10(3)/mcL Lymphocytes % 19.6 % Lymphocytes Abs 0.3 (L) 0.9 - 3.2 x10(3)/mcL Monocytes % 9.2 % Monocyte Abs 0.1 (L) 0.3 - 0.9 x10(3)/mcL Eosinophils % 1.3 % Eosinophils Abs 0.0 0.0 - 0.4 x10(3)/mcL Basophils % 0.7 % Basophils Abs 0.0 0.0 - 0.1 x10(3)/mcL Immature Gran % 0.00 % Marcie Gran Abs 0.00 0.00 - 0.04 x10(3)/mcL Urinalysis without microscopic Result Value Ref Range Glucose UA Negative Negative mg/dL Protein UA 30 (A) Negative mg/dL Bilirubin UA Negative Negative mg/dL Urobilinogen UA Normal Normal mg/dL pH UA 6.0 5.0 - 8.0 Blood UA Large (A) Negative mg/dL Ketones UA Negative Negative mg/dL Nitrite UA Negative Negative Leukocytes UA Small (A) Negative mcL Appearance UA Hazy (A) Clear Spec [place] UA 1.016 1.002 - 1.030 Color UA Yellow Yellow Urine Hold Result Value Ref Range Urine Hold Sample in lab. Assessment and Plan: Assessment: 56 y.o. female with acute on the left upper quadrant pain, with reassuring labs and vitals. 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 Discussed with gastroenterology who said that they would consider anticoagulation after seeing the patient, however this can be done on an outpatient basis. I discussed the patient that we could try and admit her for pain control and further interrogation of her possiblesplenic venous thrombosis and pain, however at this time she preferred to go home. She was transitioned to oral medications and tolerating oral medications, we discussed the need for close follow-up and she will follow up with GI. I sent them a message to try and get her into the clinic urgently. Return precautions were verbally discussed with the patient and written in discharge instructions, including fevers, shortness of breath, abdominal pain, nausea/vomiting, or other concerns. The patient expressed understanding that she could come back to the ED at any time and agreed to the follow-up plan. Plan: - Discharge home - Follow up with Gi this week - Oxycodone, Zofran - Return precautions Ruth Ramos DO Resident 11/18/16 0000 Associated attestation - Ruth Ortega MD - 11/22/2016 2:16 AM EST The patient was seen in conjunction with Dr. Ramos, the resident physician. I have independently performed the brown portions of the history and physical exam. I have reviewed all diagnostic studies personally including labs, imaging studies and EKG's. I have discussed the details of the case with the resident and agree with the assessment and plan as described in the resident note above unlessnoted otherwise below. Ms. Yun has clear LUQ fullness with tenderness with no rebound tenderness.Appreciate GI and Radiology involvement and discussion about acute versus chronic. Ms. Yun would be high risk for anticoagulation with platelets of 51. She'll follow up and return for any worsening. documented in this encounter Miscellaneous Notes * ED Triage - Josh Curiel RN - 11/17/2016 3:45 PM EST Pt comes in with abdominal pain. Pt has a history of cirrhosis. She has had an increase in abdominal pain. She has nausea and vomiting. She denies any dysuria or urinary frequency. She also reports being worked by hematology / oncology for a low WBC and platlet count. Pt is awake, alert and oriented x 3. Skin color is pink warm and dry. documented in this encounter Plan of Treatment Upcoming Encounters Date Type Department Care Team (Late st Contact Info) Description 11/29/2024 1:30 PM EST Appointment XRay at [address] [place] [address] Laurent Cbarera MD [facility] [place] [address] 11/29/2024 2:20 PM EST Office Visit Orthopaedics at [facility] [place] [address] Laurent Cabrera MD [facility] [place] [address] documented as of this encounter Procedures Procedure Name Priority Date/Time Associated Diagnosis Comments CT ABDOMEN AND PELVIS W CONTRAST STAT 11/17/2016 7:48 PM EST EKG 12-LEAD STAT 11/17/2016 5:50 PM EST URINE HOLD STAT 11/17/2016 4:21 PM EST URINALYSIS DIPSTICK STAT 11/17/2016 4 :21 PM EST HEMOGRAM STAT 11/17/2016 4:15 PM EST DIFFERENTIAL, AUTOMATED STAT 11/17/2016 4:15 PM EST APTT STAT 11/17/2016 4:15 PM EST PROTHROMBIN TIME STAT 11/17/2016 4:15 PM EST CBC (WITH DIFF) STAT 11/17/2016 4:15 PM EST LIPASE STAT 11/17/2016 4:15 PM EST HEPATIC FUNCTION PANEL STAT 11/17/2016 4:15 PM EST BASIC METABOLIC PANEL STAT 11/17/2016 4:15 PM EST documented in this encounter Results * CT Abdomen & Pelvis w Contrast (11/17/2016 7:48 PM EST) Anatomical Region Laterality Modality Abdomen, Pelvis Computed Tomogra phy Impressions 11/17/2016 8:13 PM EST No splenic infarct or hemorrhage is detected. 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 Marked splenomegaly without change. Dr. Ramos is aware of these findings. Narrative 11/17/2016 8:13 PM EST EXAMINATION: ??CT ABDOMEN AND PELVIS W CONTRAST CLINICAL HISTORY: ??LUQ and flank pain, hx splenomegaly and thrombocytopenia, ? splenic infarct vs. hemorrhage TECHNIQUE: Helical CT of the abdomen and pelvis was performed following the intravenous administration of contrast. 110 cc of Omnipaque 350 was given. ? COMPARISON: ??October 06, 2016, April 30, 2013 FINDINGS: Lung bases: ??Clear Liver: ??The liver is normal in size. There is a slightly nodular contour suggesting underlying underlying cirrhosis. Bile ducts: ??There is mild intra and extrahepatic biliary ductal dilatation. This is more apparent than seen in the prior study likely due to intravenous contrast administration. It has not definitively changed. Gallbladder: ??Surgically absent Pancreas: ??Mildly atrophic Spleen: ??Markedly enlarged. The spleen measures approximately 19.9 cm in its longest dimension, not significantly changed from the prior examination. A small focal area of decreased attenuation in the lower pole has the appearance of a cyst and was present in the prior contrast-enhanced study dated 2012. No splenic infarction is seen. No splenic hemorrhage is seen. Adrenals: ??Normal Kidneys: ??Normal Lymph Nodes: ??No enlarged lymph nodes. Bowel: Normal caliber. No adjacent inflammatory changes or wall thickening. Peritoneum and abdominal wall: Postoperative changes consistent with anterior abdominal wall hernia repair are again visible. Calcifications in the subcutaneous tissues in the right buttocks are most consistent with injection granulomas. Vasculature: The portal vein and splenic vein are markedly dilated. 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 Urinary Bladder: Normal Bones: No suspicious lesions. Procedure Note Kong Lucero MD - 11/17/2016 EXAMINATION: CT ABDOMEN AND PELVIS W CONTRAST CLINICAL HISTORY: LUQ and flank pain, hx splenomegaly andthrombocytopenia, ? splenic infarct vs. hemorrhage TECHNIQUE: Helical CT of the abdomen and pelvis was performed followingthe intravenous administration of contrast. 110 cc of Omnipaque 350 was given. COMPARISON: October 06, 2016, April 30, 2013 FINDINGS: Lung bases: Clear Liver: The liver is normal in size. There is a slightly nodular contour suggesting underlying underlying cirrhosis. Bile ducts: There is mild intra and extrahepatic biliary ductaldilatation. This is more apparent than seen in the prior study likely due tointravenous contrast administration. It has not definitively changed. Gallbladder: Surgically absent Pancreas: Mildly atrophic Spleen: Markedly enlarged. The spleen measures approximately 19.9 cm inits longest dimension, not significantly changed from the prior examination. Asmall focal area of decreased attenuation in the lower pole has the appearanceof a cyst and was present in the prior contrast-enhanced study dated 2012. Nosplenic infarction is seen. No splenic hemorrhage is seen. Adrenals: Normal Kidneys: Normal Lymph Nodes: No enlarged lymph nodes. Bowel: Normal caliber. No adjacent inflammatory changes or wallthickening. Peritoneum and abdominal wall: Postoperative changes consistent withanterior abdominal wall hernia repair are again visible. Calcifications in the subcutaneous tissues in the right buttocks are most consistent withinjection granulomas. Vasculature: The portal vein and splenic vein are markedly dilated. 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 Urinary Bladder: Normal Bones: No suspicious lesions. IMPRESSION No splenic infarct or hemorrhage is detected. Please note, however, thatthere is thrombus in a dilated splenic vein. Marked splenomegaly without change. Dr. Ramos is aware of these findings. Ruth Ortega MD IMG CT ORDERABLES * EKG 12 Lead (11/17/2016 5:50 PM EST) Ventricular rate 67 BPM MUSE SYSTEM Atrial Rate 67 BPM MUSE SYSTEM P-R Interval 154 ms MUSE SYSTEM QRS Duration 86 ms MUSE SYSTEM Q-T Interval 408 ms MUSE SYSTEM QTC Calculated (Bezet) 431 ms MUSE SYSTEM Calculated P [place] 61 degrees MUSE SYSTEM Calculated R [place] 64 degrees MUSE SYSTEM Calculated T [place] 54 degrees MUSE SYSTEM INTERPRETATION Normal sinus rhythm Normal ECG When compared with ECG of 06-OCT-2016 20:45, No significant change was found Confirmed by MD ASHLEY, DURGA ([id number]) on 11/18/2016 8:49:58 AM MUSE SYSTEM 11/17/2016 5:50 PM EST 11/18/2016 8:49 AM EST Ruth Ortega MD ECG ORDERABLES MUSE SYSTEM * Urine Hold (11/17/2016 4:21 PM EST) Hold, Urine Sample in lab. [facility] Urine specimen (specimen) Urine / Unknown 11/17/2016 4:21 PM EST 11/17/2016 7:19 PM EST Ruth Ortega MD URINE ORDERABLES [facility] [place] [address] * (ABNORMAL) Urinalysis without microscopic (11/17/2016 4:21 PM EST) Glucose, Urine Dipstick Negative Negative mg/dL [facility] Protein, Urine Dipstick 30(A) Negative mg/dL [facility] Bilirubin, Urine Dipstick Negative Negative mg/dL [facility] Comment: Clinical correlation required for positive Urine Bilirubin results as false positive may occur with some drugs and drug related products. If a false positive is suspected a serum total bilirubin should be considered if clinically indicated. Urobilinogen, Urine Dipstick Normal Normal mg/dL [facility] pH, Urn (dipstick) 6.0 5.0 - 8.0 [facility] Blood, Urine Dipstick Large(A) Negative mg/dL [facility] Ketone, Urine Dipstick Negative Negative mg/dL [facility] Nitrite, Urine Dipstick Negative Negative [facility] Leukocytes, Urine Dipstick Small(A) Negative [facility] Appearance, Urine Dipstick Hazy(A) Clear [facility] Specific [place] Urine Automated 1.016 1.002 - 1.030 [facility] Color, Urine Dipstick Yellow Yellow [facility] Urine specimen (specimen) 11/17/2016 4:21 PM EST 11/17/2016 7:18 PM EST Narrative Resulting Agency Comment Spec In Lab Ruth Ortega MD URINE ORDERABLES Performing Organization Address City/[facility] Co de Phone Number [facility] [place] [address] * (ABNORMAL) Differential, Automated (11/17/2016 4:15 PM EST) Neutrophil % 69.2 % [facility] Neutrophil Absolute 1.06(L) 1.70 - 6.10 x10(3)/ L [facility] Lymph % 19.6 % [facility] Lymphocytes Abs 0.3(L) 0.9 - 3.2 x10(3)/[facility] Monocyte % 9.2 % [facility] Monocyte Abs 0.1(L) 0.3 - 0.9 x10(3)/[facility] Eos % 1.3 % [facility] Eosinophils Abs 0.0 0.0 - 0.4 x10(3)/ L [facility] Basophil % 0.7 % [facility] Baso Absolute 0.0 0.0 - 0.1 x10(3)/ L [facility] Immature Gran % 0.00 % [facility] Comment: Immature granulocytes(IG's)percentage and absolute count will include metamyelocytes, myelocytes, and promyelocytes. Blood smears from CBCs yielding IG's will be scanned manually for concordance. If this scan disagrees with the automated IG or if promyelocytes are noted, a manual differential will be performed. Immature Gran Absolute 0.00 0.00 - 0.04 x10(3)/ L [facility] Blood specimen (specimen) 11/17/2016 4:15 PM EST 11/17/2016 4:32 PM EST Narrative Resulting Agency Comment Spec In Lab Ruth Ortega MD HEMATOLOGY ORDERABL ES Performing Organization Address City/[facility]/ZIP Co de Phone Number [facility] [place] [address] * (ABNORMAL) Hemogram (11/17/2016 4:15 PM EST) White Blood Cell 1.5(Criti gee) 4.0 - 9.5 x10(3)/mc L [facility] Comment: This result has been called to [facility] by JERMAINE REBOLLEDO on 11 17 2016 at 1646, and has been read back. Red Blood Cell 4.14 4.00 - 5.21 x10(6)/mc L [facility] Hemoglobin 12.1 11.7 - 15.5 gm/dL [facility] Hematocrit 35.8 35.7 - 45.8 % [facility] Mean Cell Volume 86.5 82.6 - 94.4 fL [facility] Mean Cell Hemoglobin 29.2 27.1 - 32.0 pg [facility] Mean Cell Hemoglobin Concentration 33.8 31.7 - 35.0 gm/dL [facility] Platelet 53(L) 145 - 357 x10(3)/mc L [facility] RDW Standard Deviation 46.5(H) 37.0 - 46.0 fL [facility] RDW coefficient of variation 14.6(H) 11.5 - 14.1 % [facility] Mean Platelet Volume 10.6 7.6 - 12.9 fL [facility] NRBC% auto 0.0 % [facility] NRBC Absolute 0.000 0.000 - 0.000 x10(3)/mc L [facility] Blood specimen (specimen) 11/17/2016 4:15 PM EST 11/17/2016 4:32 PM EST Narrative Resulting Agency Comment Spec In Lab Ruth Ortega MD HEMATOLOGY ORDERABL ES [facility] [place] [address] * APTT (11/17/2016 4:15 PM EST) Partial Thromboplastin Time 30 25 - 35 sec [facility] Comment: The recommended therapeutic range for full dose, unfractionated heparin at [facility] is 80 ? 114 seconds. The use of the anti-Xa (heparin) level rather than the PTT is recommended for monitoring anticoagulation intensity in critically ill patients receiving unfractionated heparin by continuous IV infusion. Blood specimen (specimen) 11/17/2016 4:15 PM EST 11/17/2016 4:32 PM EST Narrative Resulting Agency Comment Spec In Lab Ruth Ortega MD HEMATOLOGY ORDERABL ES Performing Organization Address [facility] Co de Phone Number [facility] [place] [address] * (ABNORMAL) Prothrombin Time (11/17/2016 4:15 PM EST) Prothrombin Time 16.7(H) 12.0 - 15.0 sec [facility] Comment: An INR <2.0 [...] International Normalization Ratio 1.3(H) 0.9 - 1.1 [facility] Blood specimen (specimen) 11/17/2016 4:15 PM EST 11/17/2016 4:32 PM EST Narrative Resulting Agency Comment Spec In Lab Ruth Ortega MD HEMATOLOGY ORDERABL ES Performing Organization Address [facility] Co de Phone Number [facility] [place] [address] * Lipase (11/17/2016 4:15 PM EST) Lipase 14 0 - 60 unit/L [facility] Blood specimen (specimen) 11/17/2016 4:15 PM EST 11/17/2016 4:32 PM EST Narrative Resulting Agency Comment Spec In Lab Ruth Ortega MD CHEMISTRY ORDERABLE S Performing Organization Address [facility] Co de Phone Number [facility] [place] [address] * Hepatic Function Panel (11/17/2016 4:15 PM EST) [facility] Protein, Total 6.7 6.1 - 8.0 gm/dL [facility] Albumin 4.0 3.2 - 5.2 gm/dL [facility] Aspartate Aminotransferase 16 0 - 30 unit/L [facility] Alanine Aminotransferase 15 0 - 30 unit/L [facility] Alkaline Phosphatase 93 40 - 104 unit/L [facility] LABORATORY Bilirubin, Total 0.8 0.2 - 1.3 mg/dL [facility] Bilirubin, Direct 0.2 0.0 - 0.3 mg/dL [facility] Blood specimen (specimen) 11/17/2016 4:15 PM EST 11/17/2016 4:32 PM EST Narrative Resulting Agency Comment Spec In Lab Ruth Ortega MD CHEMISTRY ORDERABLE S Performing Organization Address [facility] de Phone Number [facility] [place] [place] [address] * Basic Metabolic Panel (non-fasting) (11/17/2016 4:15 PM EST) [facility] Glucose 83 65 - 199 mg/dL [facility] Comment:Diabetes: >=200 mg/d L plus symptoms Blood Urea Nitrogen 9 8 - 18 mg/dL [facility] Creatinine 0.84 0.70 - 1.20 mg/dL [facility] Comment: Please note that the pediatric reference intervals supplied above were not validated at [facility]. Results from pediatric patients should be interpreted in conjunction to the patient's age, height and muscle mass. Sodium 143 135 - 145 mmol/L [facility] Potassium 3.8 3.5 - 5.0 mmol/L [facility] Comment: Please note: ??Patients with WBC >100,000 may have falsely elevated Potassium levels. ??For accurate Potassium quantification in these patients send serum separator tube (gold top) for subsequent determinations. ??Contact the Clinical Chemistry Laboratory if there are any questions. Chloride 105 98 - 107 mmol/L [facility] Carbon Dioxide 28 22 - 31 mmol/L [facility] Anion Gap 10 5 - 15 mmol/L [facility] Calcium 8.8 8.5 - 10.5 mg/dL [facility] Est Glomerular Filtration Rate >60 >=60 [facility] Comment: This estimated GFR (eGFR) [...] the following links into your internet browser. [email or web address] ([employer])/DHnkdep [email or web address] ([employer])/DHMCnkf Blood specimen (specimen) 11/17/2016 4:15 PM EST 11/17/2016 4:32 PM EST Narrative Resulting Agency Comment Spec In Lab Ruth Ortega MD CHEMISTRY ORDERABLE S [facility] [place] [address] documented in this encounter Visit Diagnoses Diagnosis LUQ abdominal pain Abdominal pain, left upper quadrant Splenic vein thrombosis Other diseases of spleen Splenomegaly Cirrhosis of liver without mention of alcohol documented in this encounter Administered Medications Inactive Administered Medications - up to 3 most recent administrations Medication Order MAR Action Action Date Dose Rate Site HYDROmorphone (DILAUDID) injection 1 mg 1 mg, Intravenous, ONCE, 1 dose, On Tue11/17/16 at 1814, STAT Given 11/17/2016 6:19 PM EST 1 mg HYDROmorphone (DILAUDID) injection 1 mg 1 mg, Intravenous, ONCE, 1 dose, On Tue11/17/16 at 2105, STAT Given 11/17/2016 9:12 PM EST 1 mg iohexol (OMNIPAQUE) 350 mg/mL solution 38,500 mg 38,500 mg (110 mL), Intravenous, ONCE PRN, 1 dose, Starting on Tue11/17/16 at 1948, Until Tue11/17/16 at 1948, Per Protocol, Warning Vesicant/Irritant Medication , Routine Given 11/17/2016 7:48 PM EST 38,500 mg ondansetron (ZOFRAN) injection 4 mg 4 mg, Intravenous, ONCE, 1 dose, On Tue11/17/16 at 1730, STAT Given 11/17/2016 5:30 PM EST 4 mg oxyCODONE (ROXICODONE) immediate release tablet 5 mg 5 mg, Oral, ONCE, 1 dose, On Tue11/17/16 at 2225, STAT Given 11/17/2016 10:37 PM EST 5 mg sodium chloride 0.9% 1,000 mL IV bolus at 4,000 mL/hr, Intravenous, ONCE, 1 dose, On Tue11/17/16 at 2122 Given 11/17/2016 9:32 PM EST 4000 mL /hr documented in this encounter Active and Recently Administered Medications Times are shown in EST. Scheduled Medication Order 11/15/2016 11/16/2016 11/17/2016 HYDROmorphone (DILAUDID) injection 1 mg (COMPLETED) 1 mg, Intravenous, ONCE, 1 dose, On Tue11/17/16 at 1814, STAT 1819 (Given - Provid er: Lashanda Alanis) HYDROmorphone (DILAUDID) injection 1 mg (COMPLETED) 1 mg, Intravenous, ONCE, 1 dose, On Tue11/17/16 at 2105, STAT 2112 (Given - Provid er: Wanda Fine RN) iohexol (OMNIPAQUE) radiology oral prep (50 mL of oral contrast)(Linked Group 1) 240 mL, Oral, ONCE, 1 dose, On Tue11/17/16 at 1730, 8 ounce cup = 240 mL of contrast 2 hours before scan as tolerated. The patient should not eat food or drink any other liquids during the entire period in which they are drinking the contrast. Mix 1 bottle (50 mL) of Omnipaque 350 with 1 liter (1,000 mL) non-carbonated beverage (preferably water). Close cover and shake vigorously and then refrigerate, if desired. Dispose of any excess preparation in a sink. Properly dispose of container., Routine 173 (Not Given - Pr ovider: Lashanda Alanis - Reason: See comment - Comment: CT without contrast) iohexol (OMNIPAQUE) radiology oral prep (50 mL of oral contrast)(Linked Group 1) 240 mL, Oral, ONCE, 1 dose, On Tue11/17/16 at 1844, 8 ounce cup = 240 mL of contrast 1 hour before scan as tolerated. The patient should not eat food or drink any other liquids during the entire period in which they are drinking the contrast. Mix 1 bottle (50 mL) of Omnipaque 350 with 1 liter (1,000 mL) non-carbonated beverage (preferably water). Close cover and shake vigorously and then refrigerate, if desired. Dispose of any excess preparation in a sink. Properly dispose of container., Routine 1843 (Due) iohexol (OMNIPAQUE) radiology oral prep (50 mL of oral contrast)(Linked Group 1) 240 mL, Oral, ONCE, 1 dose, On Tue11/17/16 at 1914, 8 ounce cup = 240 mL of contrast 30 minutes before scan as tolerated. The patient should not eat food or drink any other liquids during the entire period in which they are drinking the contrast. Mix 1 bottle (50 mL) of Omnipaque 350 with 1 liter (1,000 mL) non-carbonated beverage (preferably water). Close cover and shake vigorously and then refrigerate, if desired. Dispose of any excess preparation in a sink. Properly dispose of container., Routine 1913 (Due) iohexol (OMNIPAQUE) radiology oral prep (50 mL of oral contrast)(Linked Group 1) 240 mL, Oral, ONCE, 1 dose, On Tue11/17/16 at 1929, 8 ounce cup = 240 mL of contrast 15 minutes before scan as tolerated. The patient should not eat food or drink any other liquids during the entire period in which they are drinking the contrast. Mix 1 bottle (50 mL) of Omnipaque 350 with 1 liter (1,000 mL) non-carbonated beverage (preferably water). Close cover and shake vigorously and then refrigerate, if desired. Dispose of any excess preparation in a sink. Properly dispose of container., Routine 1928 (Due) ondansetron (ZOFRAN) injection 4 mg (COMPLETED) 4 mg, Intravenous, ONCE, 1 dose, On Tue11/17/16 at 1730, STAT 1730 (Given - Provid er: Lashanda Alanis) oxyCODONE (ROXICODONE) immediate release tablet 5 mg (COMPLETED) 5 mg, Oral, ONCE, 1 dose, On Tue11/17/16 at 2225, STAT 2237 (Given - Provid er: Monique Mcdaniel RN) sodium chloride 0.9% 1,000 mL IV bolus (COMPLETED) at 4,000 mL/hr, Intravenous, ONCE, 1 dose, On Tue11/17/16 at 2122 2132 (Given - Provid er: Wanda Fine RN) PRN Medication Order 11/15/2016 11/16/2016 11/17/2016 iohexol (OMNIPAQUE) 350 mg/mL solution 38,500 mg (COMPLETED) 38,500 mg (110 mL), Intravenous, ONCE PRN, 1 dose, Starting on Tue11/17/16 at 1948, Until Tue11/17/16 at 1948, Per Protocol, Warning Vesicant/Irritant Medication , Routine 1947 (Given - Provid er: Cadence Ortez) Linked Groups Order Group 1: iohexol (OMNIPAQUE) radiology oral prep (50 mL of oral contrast)Jump to med 240 mL, Oral, ONCE, 1 dose, On Tue11/17/16 at 1730, 8 ounce cup = 240 mL of contrast 2 hours before scan as tolerated. The patient should not eat food or drink any other liquids during the entire period in which they are drinking the contrast. Mix 1 bottle (50 mL) of Omnipaque 350 with 1 liter (1,000 mL) non-carbonated beverage (preferably water). Close cover and shake vigorously and then refrigerate, if desired. Dispose of any excess preparation in a sink. Properly dispose of container., Routine Followed by iohexol (OMNIPAQUE) radiology oral prep (50 mL of oral contrast)Jump to med 240 mL, Oral, ONCE, 1 dose, On Tue11/17/16 at 1844, 8 ounce cup = 240 mL of contrast 1 hour before scan as tolerated. The patient should not eat food or drink any other liquids during the entire period in which they are drinking the contrast. Mix 1 bottle (50 mL) of Omnipaque 350 with 1 liter (1,000 mL) non-carbonated beverage (preferably water). Close cover and shake vigorously and then refrigerate, if desired. Dispose of any excess preparation in a sink. Properly dispose of container., Routine Followed by iohexol (OMNIPAQUE) radiology oral prep (50 mL of oral contrast)Jump to med 240 mL, Oral, ONCE, 1 dose, On Tue11/17/16 at 1914, 8 ounce cup = 240 mL of contrast 30 minutes before scan as tolerated. The patient should not eat food or drink any other liquids during the entire period in which they are drinking the contrast. Mix 1 bottle (50 mL) of Omnipaque 350 with 1 liter (1,000 mL) non-carbonated beverage (preferably water). Close cover and shake vigorously and then refrigerate, if desired. Dispose of any excess preparation in a sink. Properly dispose of container., Routine Followed by iohexol (OMNIPAQUE) radiology oral prep (50 mL of oral contrast)Jump to med 240 mL, Oral, ONCE, 1 dose, On Tue11/17/16 at 1929, 8 ounce cup = 240 mL of contrast 15 minutes before scan as tolerated. The patient should not eat food or drink any other liquids during the entire period in which they are drinking the contrast. Mix 1 bottle (50 mL) of Omnipaque 350 with 1 liter (1,000 mL) non-carbonated beverage (preferably water). Close cover and shake vigorously and then refrigerate, if desired. Dispose of any excess preparation in a sink. Properly dispose of container., Routine documented in this encounter Care Teams Limousine Rental Clerk Relationship Specialty Start Date End Date Loren Jiménez MD [facility] [place] [place] [address] PCP - General Family Medicine 11/04/16 11/18/16 documented as of this encounter
--- OUTSIDE RECORDS SUMMARY | 2024-11-22 17:35 | XMS_ITS | Encounter Summary ---
Author Organization [facility] [address] [place] [address] Care Team Providers Care Automatic Coil Machine Operator Name Role Phone Loren Jiménez MD Primary Care Provider [phone] Encounter Details Date Type Department Care Team (Latest Contact Info) Description 11/08/2016 11:48 AM EST - 11/08/2016 11:59 PM EST Hospital Encounter Hematology and Oncology at [facility] [place] [phone] Discharge Disposition: Home Social History Tobacco Use [...] 1:30 PM EST Appointment XRay at [address] [place] [address] Laurent Cabrera MD [facility] [place] [address] 11/29/2024 2:20 PM EST Office [place] [address] Laurent Cabrera MD [facility] [place] [address] documented as of this encounter Visit Diagnoses Not on filedocumented in this encounter Care Teams Automatic Coil Machine Operator Relationship Specialty Start Date End Date Loren Jiménez MD [facility] [address] [facility] [place] [address] PCP - General Family Medicine 11/04/16 11/18/16 documented as of this encounter
--- OUTSIDE RECORDS SUMMARY | 2024-11-22 17:36 | XMS_ITS | Encounter Summary ---
Author Organization [facility] [place] [address] [place] [address] Care Team Providers Care Slitter Cut Off Operator Name Role Phone Emigdio Centeno MD Primary Care Provider [phone] Encounter Details Date Type Department Care Team (Late st Contact Info) Description 10/08/2013 Telephone Gastroenterology at [facility] [place] [phone] Kate Jimenez RN Social History Tobacco Use Types Packs/Day [...] Miscellaneous Notes * Telephone Encounter - Kate Jimenez RN - 10/08/2013 12:46 PM EST (See earlier note today) Patient calls back and states that she went to the ED at the local hospital, they performed tests, and she states that she was told that there was nothing wrong, and she was sent home. Patient will call that hospital and request records be faxed to the attention of Kory Sweeney. She was advised that if symptoms worsen she should return to the ED. She will remain in [place] until February. She does not have a PCP there. Will update Kory Mark NP documented in this encounter Plan of Treatment Upcoming Encounters Date Type Department Care Team (Late st Contact Info) Description 11/29/2024 1:30 PM EST Appointment XRay at [address] [place] [address] [facility] [place] [address] 11/29/2024 2:20 PM EST Office Visit Orthopaedics at [facility] [place] [address] [facility] [place] [address] documented as of this encounter Visit Diagnoses Not on filedocumented in this encounter Care Teams Slitter Cut Off Operator Relationship Specialty Start Date End Date Emigdio Centeno MD [address] [place] [address] PCP - General 03/27/13 07/08/16 documented as of this encounter
--- OUTSIDE RECORDS SUMMARY | 2024-11-22 17:36 | XMS_ITS | Encounter Summary ---
Author Organization [facility] [address] [place] [address] Care Team Providers Care Radiocommunications Technician Name Role Phone Emigdio Centeno MD Primary Care Provider [phone] Encounter Details Date Type Department Care Team (Late st Contact Info) Description 04/30/2013 8:03 AM EDT - 04/30/2013 12:09 PM EDT Hospital Encounter CT Scan at [facility] [place] [phone] Abdominal pain Social History Tobacco Use Types Packs/Day Years Used Date Smoking Tobacco: Every Day Cigarettes Alcohol Use Standard Drinks/Week Comments No 0 (1 standard drink = 0.6 oz pur e alcohol) Sex and Gender Information Value Date Recorded Sex Assigned at Not on file Gender Identity Not on file Sexual Orientation Not on file documented as of this encounter Medications at Time of Discharge Medication Sig Dispensed Refills Start Date End Date OXYcodone (ROXICODONE) 5 mg immediate release tablet Take 1 tablet by mouth every 4 hours as needed for Pain. 20 tablet 0 04/30/2013 08/28/2016 escitalopram (LEXAPRO) 20 mg tabletIndications:Pancy topenia Take 20 mg by mouth daily. Reported on 11/10/2016 11/10/2016 levothyroxine (SYNTHROID) 25 mcg tabletIndications:Pancy topenia Take 25 mcg by mouth daily. 11/23/2016 pantoprazole (PROTONIX) 40 mg tabletIndications:Pancy topenia Take 20 mg by mouth daily. 11/23/2016 FERROUS SULFATE, DRIED (IRON, DRIED, ORAL)Indications:Pancyt openia Take 65 mg by mouth 3 times daily. 04/18/2019 ALPRAZolam (XANAX) 0.5 mg tabletIndications:Pancy topenia Take 0.5 mg by mouth nightly. 05/02/2013 ergocalciferol (ERGOCALCIFEROL) 50,000 unit capsuleIndications:Panc ytopenia Take 50,000 Units by mouth once a week. 04/02/2014 documented as of this encounter Miscellaneous Notes * Miscellaneous - Provider, Scanning - 05/04/2013 11:08 AM EDT documented in this encounter Plan of Treatment Upcoming Encounters Date Type Department Care Team (Late st Contact Info) Description 11/29/2024 1:30 PM EST Appointment XRay at [address] [place] [address] Laurent Cabrera MD [facility] [place] [address] 11/29/2024 2:20 PM EST Office [place] [address] Laurent Cabrera MD [facility] [place] [address] documented as of this encounter Procedures Procedure Name Priority Date/Time Associated Diagnosis Comments CT ABDOMEN AND PELVIS W CONTRAST Routine 04/30/2013 10:39 AM EDT Abdominal pain documented in this encounter Results * CT abdomen & pelvis with contrast (04/30/2013 10:39 AM EDT) Anatomical Region Laterality Modality Abdomen, Pelvis Computed Tomogra phy 04/30/2013 10:3 9 AM EDT Narrative 04/30/2013 11:[address] Abdomen / Pelvis With Contrast Clinical History Lower abdominal pain ?? multiple previous surgeries including Lap VHR (RUQ) three months ago ?? ? hernia in obese patient Comparison None Technique Contrast-enhanced CT scan of the abdomen and pelvis following the administration of oral contrast and 110 cc Omnipaque 350 intravenous contrast. Findings Imaged portions of the lung bases show no pulmonary nodule nor pleural effusion. Review of osseous structures shows mild degenerative change without suspicious lesion. Abdomen: ??Liver, pancreas, right and left adrenal glands and kidneys normal. ?? Splenomegaly. ??Patent portal and hepatic veins. ??Hernia repair mesh and sutures seen anteriorly in the right abdomen with trace underlying free fluid that abuts the anterior left liver lobe capsule and is associated with mild retraction of this. ??Trace fluid is seen at the cranial aspect of the hernia repair in the anterior abdominal wall, series 2 image 32. ??Small para celiac, perigastric, portacaval and retroperitoneal lymph nodes are present. ??No intra-abdominal fluid collections. Pelvis: ??Infra umbilical surgical clips with small fat filled ventral hernia. ?? 2 clips subjacent to the rectus sheath in the right lower abdomen. ??Mild stranding in the region of the linea alba in the infraumbilical region without focal fluid collection. ??Diverticulosis without acuity. Impression Postoperative changes in the infraumbilical midline. ??Small fat filled umbilical hernia. ??Trace fluid subjacent to the right upper quadrant mesh material. ??Trace fluid that extends from the cranial aspect of the mesh material and abuts the anterior edge of the liver capsule with slight retraction of this may represent scarring from recent surgical intervention. ?? Procedure Note Brenda Gallgaher MD - 04/30/[address] Abdomen / Pelvis With Contrast Clinical History Lower abdominal pain multiple previous surgeries including Lap VHR (RUQ) three months ago ? hernia in obese patient Comparison None Technique Contrast-enhanced CT scan of the abdomen and pelvis following the administration of oral contrast and 110 cc Omnipaque 350 intravenouscontrast. Findings Imaged portions of the lung bases show no pulmonary nodule nor pleural effusion. Review of osseous structures shows mild degenerative change withoutsuspicious lesion. Abdomen: Liver, pancreas, right and left adrenal glands and kidneysnormal. Splenomegaly. Patent portal and hepatic veins. Hernia repair mesh andsutures seen anteriorly in the right abdomen with trace underlying free fluid that abuts the anterior left liver lobe capsule and is associated with mild retraction of this. Trace fluid is seen at the cranial aspect of thehernia repair in the anterior abdominal wall, series 2 image 32. Small paraceliac, perigastric, portacaval and retroperitoneal lymph nodes are present. No intra-abdominal fluid collections. Pelvis: Infra umbilical surgical clips with small fat filled ventralhernia. 2 clips subjacent to the rectus sheath in the right lower abdomen. Mild stranding in the region of the linea alba in the infraumbilical regionwithout focal fluid collection. Diverticulosis without acuity. Impression Postoperative changes in the infraumbilical midline. Small fat filled umbilical hernia. Trace fluid subjacent to the right upper quadrant mesh material. Trace fluid that extends from the cranial aspect of the mesh material and abuts the anterior edge of the liver capsule with slight retraction of this may represent scarring from recent surgicalintervention. Steven Weems MD IMG CT ORDERABLES documented in this encounter Visit Diagnoses Diagnosis Abdominal pain Abdominal pain, unspecified site documented in this encounter Administered Medications Inactive Administered Medications - up to 3 most recent administrations Medication Order MAR Action Action Date Dose Rate Site iohexol (OMNIPAQUE) 350 mg iodine/mL injection 17,500 mg 17,500 mg (50 mL), Oral, ONCE PRN, 1 dose, Starting on Tue04/30/13 at 1028, Until Tue04/30/13 at 0800, Per Protocol, Routine Given 04/30/2013 8:00 AM EDT 17,500 mg iohexol (OMNIPAQUE) 350 mg iodine/mL injection 38,500 mg 38,500 mg (110 mL), Intravenous, ONCE PRN, 1 dose, Starting on Tue04/30/13 at 1028, Until Tue04/30/13 at 1039, Per Protocol, Routine Given 04/30/2013 10:39 AM EDT 38,500 mg documented in this encounter Care Teams Radiocommunications Technician Relationship Specialty Start Date End Date Emigdio Centeno MD [address] [place] [address] PCP - General 03/27/13 07/08/16 documented as of this encounter
--- OUTSIDE RECORDS SUMMARY | 2024-11-22 17:36 | XMS_ITS | Encounter Summary ---
Author Organization [facility] [address] [place] [address] Care Team Providers Care Breaker Up Machine Operator Name Role Phone Emigdio Centeno MD Primary Care Provider [phone] Encounter Details Date Type Department Care Team (Late st Contact Info) Description 06/26/2013 1:00 PM EDT Office Visit Gastroenterology at [facility] [place] [phone] Katherin Eugene LD QUIROZ (nonalcoholic steatohepatitis) (Primary Dx) Discharge Disposition: Home Social History [...] as of this encounter Progress Notes * Katherin Eugene LD - 07/02/2013 5:15 PM EDT THis encounter was opened by error. Patient missed appointment. documented in this encounter Plan of Treatment Upcoming Encounters Date Type Department Care Team (Late st Contact Info) Description 11/29/2024 1:30 PM EST Appointment XRay at [address] [place] [phone] Laurent Cabrera MD [facility] [place] [address] 11/29/2024 2:20 PM EST Office [place] [address] Laurent Cabrera MD [facility] [place] [address] documented as of this encounter Visit Diagnoses Diagnosis QUIROZ (nonalcoholic steatohepatitis)- Primary Other chronic nonalcoholic liver disease documented in this encounter Care Teams Breaker Up Machine Operator Relationship Specialty Start Date End Date Emigdio Centeno MD [address] [place] [address] PCP - General 03/27/13 07/08/16 documented as of this encounter
--- OUTSIDE RECORDS SUMMARY | 2024-11-22 17:36 | XMS_ITS | Encounter Summary ---
Author Organization [facility] [address] [place] [address] Care Team Providers Care Railway Signal Electrician Name Role Phone Emigdio Centeno MD Primary Care Provider [phone] Reason for Visit * Reason Onset Date Comments Questions 04/23/2013 bruising Encounter Details Date Type Department Care Team (Late st Contact Info) Description 04/23/2013 Telephone Hematology and Oncology at [facility] [place] [phone] Zully Martinez RN Questions (bruising) Social History Tobacco Use Types Packs/Day Years [...] Miscellaneous Notes * Telephone Encounter - Zully Martinez RN - 04/23/2013 4:37 PM EDT Received call from patient who reports that s he is having bruising since last at [facility] sight. [facility] done 2 weeks ago.Site remains sore. Also has bruises on legs, and arms. Is fatigued and teary and depressed about health. documented in this encounter Plan of Treatment Upcoming Encounters Date Type Department Care Team (Late st Contact Info) Description 11/29/2024 1:30 PM EST Appointment XRay at [address] [place] [phone] Laurent Cabrera MD [facility] ORTHOPAEDIC [place] [address] 11/29/2024 2:20 PM EST Office [place] [address] Laurent Cabrera MD [facility] ORTHOPAEDIC [place] [address] documented as of this encounter Visit Diagnoses Not on filedocumented in this encounter Care Teams Railway Signal Electrician Relationship Specialty Start Date End Date Emigdio Centeno MD [address] [place] [address] PCP - General 03/27/13 07/08/16 documented as of this encounter
--- OUTSIDE RECORDS SUMMARY | 2024-11-22 17:36 | XMS_ITS | Encounter Summary ---
Author Organization [facility] [place] [address] [place] [address] Care Team Providers Care [employer] Manager Name Role Phone Emigdio Centeno MD Primary Care Provider [phone] Reason for Visit * Reason Comments GI Problem Encounter Details Date Type Department Care Team (Late st Contact Info) Description 05/02/2013 10:00 AM EDT Office Visit Gastroenterology at [facility] [place] [id number] Sharon Mark APRN Cirrhosis of liver (Primary Dx); Obesity; Hyperlipidemia; Fatigue; Elevated random blood glucose level Discharge Disposition: Home Social History Tobacco Use Types Packs/Day Years Used Date Smoking Tobacco: Every Day Cigarettes 0.5 30 Tobacco Cessation:Ready to Q uit: Yes; Counseling Given: Yes Comments:Working on cutting down. Alcohol Use Standard [...] Sign Reading Time Taken Comments Blood Pressure 96/57 05/02/2013 9:59 AM EDT Pulse 71 05/02/2013 9:59 AM EDT Temperature - - Respiratory Rate - - Oxygen Saturation - - Inhaled Oxygen Concentration - - Weight 104.8 kg (231 lb) 05/02/2013 9:59 AM EDT Height 165.1 cm (5' 5) 05/02/2013 9:59 AM EDT Body Mass Index 38.44 05/02/2013 9:59 AM EDT documented in this encounter Patient Instructions * Patient Instructions* Sharon Mark APRN - 05/02/2013 11:15 AM EDT 1. Stop Naproxen/Aleve. Avoid ibuprofen, Motrin, Advil and aspirin. These will make ascites worse. 2. Tylenol is safe to take up to 2000 mg daily (2 Extra Strength Tylenol every 12 hrs). 3. Limit sodium to 2000 mg daily. 4. No alcohol 5. I am starting you on Lactulose (liquid medication). Please take 30 mL twice daily. You can adjust this dose so you are having 2-4 BM daily. documented in this encounter Progress Notes * Sharon Mark APRN - 05/02/2013 10:18 AM EDT Subjective: Patient ID: Tara Boothe is a 52 y.o. female. HPI Problem List: 1. Cirrhosis A. Labs - see below B. Imaging - CT scan 04/30/13 without liver lesions C. Liver biopsy - none to date D. Complications 1. Ascites, trace A. 05/01/13 Treatment - discontinue NSAID's, ASA, alcohol, limit sodium to <2000 mg daily 2. Hepatic Encephalopathy A. 05/01/13 Treatment - initiate lactulose 30 cc BID 3. Portal Hypertension A. EGD - pending 2. HCV Ab positive A. HCV RNA <43- (03/30/13) 3. Class II obesity 4. Hyperlipidemia 5. Hypothyroid 6. GERD 7. Depression 8. S/P tonsillectomy 1960 9. S/P hysterectomy 1986 10. S/P ovary removal 1987 11. S/P Dental extraction 03/25/1989 12. S/P Cholecystectomy 1992 13. S/P Hiatal Hernia Repair with Hilary Fundoplication 1992 14. S/P Appendectomy 11/16/1996 15. S/P Right total knee replacement 2004 16. S/P Left total knee replacement 2005 17. S/P right toe surgery 2005 18. S/P Ventral Hernia repair 01/11/13 19. S/P Bone Marrow Biopsy 04/09/13 Preventative Health: 1. HAV/HBV 2. Portal HTN - EGD pending 3. HCC surveillance - CT Scan 04/30/13 (no liver lesions). AFP pending 4. Colonoscopy - pending Ms. Boothe is a very pleasant 52 year old white female seen today at [facility] in consultation for cirrhosis in setting of positive HCV antibody. She was diagnosed with hepatitis C about 15 years ago. She was never treated. She denies experiencing an icteric illness. On recent testing here, her HCV RNA was undetectable (<43-). She was recently diagnosed with cirrhosis of the liver after her ventral hernia repair in [place] performed on 01/11/13 during which she required platelet transfusion. She does not have any identifiable risk factors for HCV. It appears that she has cleared the virus spontaneously, therefore hepatitis C is not the cause of her cirrhosis. She has risk factors for QUIROZ to include Class II Obesity, hypothyroid and hyperlipidemia. She presents today with complaints of fatigue, night sweats, abdominal distention, RUQ s/p hernia repair, constipation, easy bruising, and confusion. She denies fever, chest pain, melena, hematochezia, vomiting, rashes. She has not had her screening colonoscopy. Abdominal CT Scan 04/30/13: Findings Imaged portions of the lung bases show no pulmonary nodule nor pleural effusion. Review of osseous structures shows mild degenerative change without suspicious lesion. Abdomen: Liver, pancreas, right and left adrenal glands and kidneys normal. Splenomegaly. Patent portal and hepatic veins. Hernia repair mesh and sutures seen anteriorly in the right abdomen with trace underlying free fluid that abuts the anterior left liver lobe capsule and is associated with mild retraction of this. Trace fluid is seen at the cranial aspect of the hernia repair in the anterior abdominal wall, series 2 image 32. Small para celiac, perigastric, portacaval and retroperitoneal lymph nodes are present. No intra-abdominal fluid collections. Pelvis: Infra umbilical surgical clips with small fat filled ventral hernia. 2 clips subjacent to the rectus sheath in the right lower abdomen. Mild stranding in the region of the linea alba in the infraumbilical region without focal fluid collection. Diverticulosis without acuity. Impression Postoperative changes in the infraumbilical midline. Small fat filled umbilical hernia. Trace fluid subjacent to the right upper quadrant mesh material. Trace fluid that extends from the cranial aspect of the mesh material and abuts the anterior edge of the liver capsule with slight retraction of this may represent scarring from recent surgical intervention. Labs 03/30/13: Results for TARA BOOTHE ( ) as of 05/02/2013 13:28 Ref. Range 03/30/2013 15:22 WBC Latest Range: 4.0-10.0 x10(3)/mcL 2.8 (L) RBC Latest Range: 3.93-5.22 x10(6)/mcL 4.42 Hemoglobin Latest Range: 11.2-15.7 gm/dL 12.2 Hematocrit Latest Range: 34.0-45.0 % 38.1 MCV Latest Range: 79.0-94.0 fL 86.2 MCH Latest Range: 26.6-32.2 pg 27.6 MCHC Latest Range: 32.0-36.5 gm/dL 32.0 RDWSD Latest Range: 35.0-46.0 fL 46.0 RDWCV Latest Range: 10.9-14.4 % 14.7 (H) Platelets Latest Range: 145-370 x10(3)/mcL 78 (L) MPV Latest Range: 9.0-12.0 fL 9.8 Plat Immature % Latest Range: 0.0-7.4 % 3.[address] % Latest Range: 0.5-2.4 % 1.[address] Abs Latest Range: 0.027-0.095 x10(6)/mcL 0.050 Immature Retic% Latest Range: 2.3-15.9 % 10.2 Reticulated Hgb Latest Range: 28.8-38.9 pg 33.0 Neutr Abs (ANC) Latest Range: 1.50-6.30 x10(3)/mcL 1.80 Neutrophils % Latest Range: 34.0-71.0 % 64.4 Immature Gran % Latest Range: 0.00-0.66 % 0.00 Lymphocytes % Latest Range: 19.0-53.0 % 23.7 Monocytes % Latest Range: 4.0-13.0 % 9.7 Eosinophils % Latest Range: 0.0-7.0 % 1.8 Basophils % Latest Range: 0.0-2.0 % 0.4 Marcie Gran Abs Latest Range: 0.00-0.05 x10(3)/mcL 0.00 Lymphocytes Abs Latest Range: 1.0-3.6 x10(3)/mcL 0.7 (L) Monocyte Abs Latest Range: 0.2-1.0 x10(3)/mcL 0.3 Eosinophils Abs Latest Range: 0.0-0.5 x10(3)/mcL 0.0 Basophils Abs Latest Range: 0.0-0.2 x10(3)/mcL 0.0 Sodium Latest Range: 135-145 mmol/L 140 Potassium Latest Range: 3.5-5.0 mmol/L 3.8 Chloride Latest Range: 98-107 mmol/L 103 CO2 Latest Range: 22-31 mmol/L 30 Anion Gap Latest Range: 5-15 mmol/L 7 BUN Latest Range: 8-18 mg/dL 10 Creatinine Latest Range: 0.70-1.20 mg/dL 0.75 Estimated GFR Latest Range: >=60 >60 Glucose Lvl Latest Range: 60-199 mg/dL 81 Calcium Latest Range: 8.5-10.5 mg/dL 8.7 Total Protein Latest Range: 6.4-8.3 gm/dL 7.0 Albumin Latest Range: 3.2-5.2 gm/dL 3.9 Total Bilirubin Latest Range: 0.2-1.3 mg/dL 0.3 Bili, Direct Latest Range: 0.0-0.3 mg/dL 0.1 Alk Phos Latest Range: 40-104 unit/L 93 AST Latest Range: 0-30 unit/L 24 ALT Latest Range: 0-30 unit/L 18 LDH Latest Range: 110-220 unit/L 135 Total Prot Elec Latest Range: 6.1-8.0 gm/dL 6.6 Albumin Elect Latest Range: 3.60-6.00 gm/dL 3.80 Alpha1-Globulin Latest Range: 0.10-0.30 gm/dL 0.23 Alpha2-Globulin Latest Range: 0.40-0.90 gm/dL 0.60 Beta Globulin Latest Range: 0.50-1.00 gm/dL 0.76 Gamma Globulin Latest Range: 0.50-1.30 gm/dL 1.21 M1 Band No range found 0.28 Scan No range found See Note HERSON No range found See Note IgG Latest Range: 700-1600 mg/dL 1094 IgA Latest Range: 70-400 mg/dL 473 (H) IgM Latest Range: 40-230 mg/dL 94 HCV Viral Load No range found <43 HCV QUANT No range found Rpt JORGE No range found Negative Past Medical History Diagnosis Date ??? Hypothyroid ??? GERD (gastroesophageal reflux disease) ??? Hepatitis C antibody test positive ??? Depression ??? Hyperlipidemia Past Surgical History Procedure Date ??? Bone marrow aspiration w/bx through same incision/site [place]09/2013 [place] BONE MARROW ASP PERFORMED W/BX THRU BX INCISION performed by Dom Zeng MD at [facility] ??? Bone marrow bx, needle/trocar 04/09[facility] BONE MARROW,BIOPSY performed by Dom Zeng MD at [facility] ??? Ventral hernia repair 01/11/13 [place] ??? Appendectomy 11/16/96 ??? Dental surgery 03/25/1989 ??? Knee surgery x 11 ??? Total knee arthroplasty 2006 left ??? Total knee arthroplasty 2004 right ??? Toe surgery 2006 right ??? Hysterectomy 1986 ??? Ovary removal 1987 ??? Cholecystectomy 1992 ??? Hiatal hernia repair 1992 ??? Gastric fundoplication 1992 ??? Tonsillectomy 1960 naproxen sodium (ALEVE) 220 mg tablet; ondansetron (ZOFRAN) 4 mg tablet; OXYcodone (ROXICODONE) 5 mg immediate release tablet; escitalopram (LEXAPRO) 20 mg tablet; levothyroxine (SYNTHROID) 25 mcg tablet; pantoprazole (PROTONIX) 40 mg tablet; DOCUSATE SODIUM (COLACE ORAL); FERROUS SULFATE, DRIED (IRON, DRIED, ORAL); ergocalciferol (ERGOCALCIFEROL) 50,000 unit capsule; Lactulose 10 gram/15 mL Syrp polyethylene glycol-electrolytes (PEG 3350-ELECTROLYTES) 420 gram solution; DISCONTD: ALPRAZolam (XANAX) 0.5 mg tablet Allergies Allergen Reactions ??? Sulfa (Sulfonamide Antibiotics) Anaphylaxis, Itching and Rash ??? Cis Free Text Allergy KETORALAC. ??? Cis Free Text Allergy METOCLOPRAMIDE. ??? Codeine ??? Ketorolac Tromethamine ??? Morphine Abd. Pain, difficulty breathing ??? Prochlorperazine Family Status Relation Status Age ??? Mother 73 killed in MVA. DM ??? Father Alive age 83, polycythemia vera, a. fib, OA ??? Sister Alive 1/2 sister , age 64 - OA, obese ??? Sister Alive 1/2 sister, age 63 - ??? Sister Alive 1/2 sister, age 43 - ??? Sister Alive 1/2 sister, age 45 - OA, obese ??? Brother Alive age 50, healthy ??? Brother Alive age 48, healthy ??? Brother Alive 1/2 brother, age 63 - asthma, DM, COPD, tobacco use ??? Brother Alive 1/2 brother, age 64, healthy ??? Brother Alive 1/2 brother, age 44, healthy ??? Brother 18 1/2 brother. Accidental - fell into garbage truck ??? Daughter Alive age 32, healthy ??? Daughter Alive age 31, healthy ??? Son Alive age 29, healthy ??? Maternal Grandmother 92 Polio, CAD ??? Maternal Grandfather 92 CAD, HTN ??? Paternal Grandfather 40's or 50's MVA accident ??? Paternal Grandmother 84 unknown Family History Problem Relation Age of Onset ??? Type 2 Diabetes Mother ??? Type 2 Diabetes Brother ??? Asthma Brother ??? Coronary Artery Disease Maternal Grandmother ??? Coronary Artery Disease Maternal Grandfather ??? Hypertension Maternal Grandfather History Social History ??? Marital Status: Spouse Name: N/A Number of Children: N/A ??? Years of Education: N/A Occupational History ??? Not on file. Social History Main Topics ??? Smoking status: Current Everyday Smoker -- 0.5 packs/day for 30 years Types: Cigarettes ??? Smokeless tobacco: Not on file Comment: Working on cutting down. ??? Alcohol Use: No No hx of heavy ETOH. 1 drink 2-3 times a year. Last ETOH x 1 month ago. ??? Drug Use: No Tried snorting drugs once in 2010. No hx of IV drug use. ??? Sexually Active: Yes -- Male partner(s) deferred Other Topics Concern ??? Blood Transfusions Yes Platelets in 12/2012 ??? Service No Social History Narrative Lives with domestic partner of 18 years. Lives in [facility]. 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 Done under sterile conditions.Ears pierced - done professionally. with HCV. Review of Systems Constitutional: Positive for diaphoresis (Night sweats x 2 year) and fatigue. Negative for fever and chills. Body mass index is 38.44 kg/(m^2). Working on weight loss through exercise, walking 5 miles daily weather permitting Has lost 44 lbs in past several years HENT: Negative for trouble swallowing. Respiratory: Negative for cough, shortness of breath and wheezing. Cardiovascular: Positive for leg swelling (Intermittently attributed to knees). Negative for chest pain and palpitations. Gastrointestinal: Positive for nausea (Nausea twice a week), abdominal pain (RUQ s/p hernia repair), constipation and abdominal distention. Negative for vomiting, diarrhea and blood in stool. Heartburn controlled with Protonix. Occ breakthrough heartburn alleviated with Tums. BM twice daily but has been constipated currently and last BM 4 days. No screening colonoscopy Genitourinary: Negative for hematuria. Musculoskeletal: Positive for back pain and arthralgias (Knees, ankles, toes). Muscle cramping in feet, hands and ankles Skin: Negative for color change and rash. Pruritus on face but attributes to dry skin. No hx of icteric illness. Neurological: Positive for weakness (intermittently) and light-headedness (Intermittently when stands up quickly). Negative for dizziness, tremors and syncope. Hematological: Bruises/bleeds easily (Easy bruising x 1 year). Psychiatric/Behavioral: Positive for confusion (x 1 year), sleep disturbance (Not able to sleep dueto anxiety and night sweats) and dysphoric mood (Attributed to current health condition). Negative for suicidal ideas. The patient is nervous/anxious (Attributed to current status). Objective: Physical Exam Constitutional: She is oriented to person, place, and time. She appears well- developed and well-nourished. Body mass index is 38.44 kg/(m^2). HENT: Head: Normocephalic and atraumatic. Eyes: Pupils are equal, round, and reactive to light. No scleral icterus. Neck: Normal range of motion. Neck supple. No thyromegaly present. Cardiovascular: Normal rate, regular rhythm and normal heart sounds. No murmur heard. Pulmonary/Chest: Effort normal. She has no wheezes. She has rales (Bibasilar inspiratory and expiratory fine crackles). Abdominal: Soft. Bowel sounds are normal. She exhibits distension. She exhibits no mass. There is tenderness (Diffusely tender). There is no guarding. Exam limited due to body habitus Musculoskeletal: She exhibits no edema. Lymphadenopathy: She has no cervical adenopathy. Neurological: She is alert and oriented to person, place, and time. No asterixis Skin: Skin is warm and dry. There is erythema (Palmar erythema. Spider angiomata on chest and cheeks). Psychiatric: She has a normal mood and affect. Her behavior is normal. Assessment and Plan: Ms. Boothe is a very pleasant 52 year old white female seen today in consultation for cirrhosis. Shehas HCV Ab positive but a negative viral load, indicating that she cleared the virus spontaneously.Hepatitis C is not the cause of her cirrhosis. 1. Cirrhosis, likely due to QUIROZ. She has decompensated liver disease (ascites and encephalopathy).Her risk factors for QUIROZ include Class II Obesity, Hyperlipidemia, hypothyroid. Will evaluate for other potential causes of liver disease with today's labs. I had a long discussion with her about cirrhosis, risk of decompensation and risk of HCC. She will need bi-annual HCC surveillance with imaging and labs. She will be due for again in October for an ultrasound and AFP. She drinks rarely, 1 alcoholic beverage 2-3 times yearly. I have advised that there is no safe limit to alcohol consumption and have advised complete abstinence. Tylenol is safe to take up to 2000 mg in 24 period. 2. Ascites, trace. This is likely due to recent ventral hernia repair. She needs to discontinue andavoid all NSAID's and ASA. Avoid alcohol. Limit sodium to 2000 mg in 24 hr period. Because just a trace amount will monitor. Consider initiating diuretics (Lasix and Aldactone) if ascites worsens. 3. Hepatic Encephalopathy. Initiate Lactulose 30 cc BID and titrate so having 2- 4 stools daily. Sheis constipated so this should alleviate her symptoms so she can discontinue Sennakot and Colace. 4. Portal HTN. She is need of EGD to screen for varices. Will arrange. 5. Colonoscopy. She has never had a screening colonoscopy. Because she is need of EGD will do screening colo at same time. 6. RUQ Abdominal Pain S/P Ventral Hernia Repair 01/11/13. She tells me that she is need of mesh repair. I explained that because she has cirrhosis and thrombocytopenia, any surgery presents greater risk than general population. Her liver disease is currently decompensated and I would strongly adviseagainst any elective surgeries at this time. All of her questions were answered at the conclusion of the visit. She verbalized understanding andagreement to the plan of care. Will obtain labs today to calculate MELD and Child's Antunez Score. I will see her in follow-up 2 weeks after her EGD/colo. documented in this encounter Plan of Treatment Upcoming Encounters Date Type Department Care Team (Late st Contact Info) Description 11/29/2024 1:30 PM EST Appointment XRay at [address] [place] [address] Laurent Cabrera MD [facility] [address] [place] [address] 11/29/2024 2:20 PM EST Office [place] [address] Laurent Cabrera MD [facility] [place] [address] documented as of this encounter Procedures Procedure Name Priority Date/Time Associated Diagnosis Comments .A1AT GENOTYPE Routine 05/02/2013 12:36 PM EDT Cirrhosis of liver Obesity Hyperlipidemia Fatigue Elevated random blood glucose level A1AT GENOTYPE PROFILE Routine 05/02/2013 12:36 PM EDT Cirrhosis of liver Obesity Hyperlipidemia Fatigue Elevated random blood glucose level DIFFERENTIAL, AUTOMATED Routine 05/02/2013 12:36 PM EDT [id number] Routine 05/02/2013 1 2:36 PM EDT Cirrhosis of liver Obesity Hyperlipidemia Fatigue Elevated random blood glucose level HEPATITIS A ANTIBODY, TOTAL Routine 05/02/2013 12:36 PM EDT Cirrhosis of liver Obesity Hyperlipidemia Fatigue Elevated random blood glucose level MITOCHONDRIAL ANTIBODY, M2 Routine 05/02/2013 12:36 PM EDT Cirrhosis of liver Obesity Hyperlipidemia Fatigue Elevated random blood glucose level TISSUE TRANSGLUTAMINASE, IGA Routine 05/02/2013 12:36 PM EDT Cirrhosis of liver Obesity Hyperlipidemia Fatigue Elevated random blood glucose level CERULOPLASMIN Routine 05/02/2013 12:36 PM EDT Cirrhosis of liver Obesity Hyperlipidemia Fatigue Elevated random blood glucose level AFP TUMOR MARKER Routine 05/02/2013 12:3 6 PM EDT Cirrhosis of liver Obesity Hyperlipidemia Fatigue Elevated random blood glucose level HEPATITIS B CORE ANTIBODY, TOTAL Routine 05/02/2013 12:36 PM EDT Cirrhosis of liver Obesity Hyperlipidemia Fatigue Elevated random blood glucose level SMOOTH MUSCLE ANTIBODY Routine 3 12:36 PM EDT Cirrhosis of liver Obesity Hyperlipidemia Fatigue Elevated random blood glucose level HEPATITIS B SURFACE ANTIBODY Routine 05/02/2013 12:36 PM EDT Cirrhosis of liver Obesity Hyperlipidemia Fatigue Elevated random blood glucose level HEPATITIS B SURFACE ANTIGEN Routine 05/02/2013 12:36 PM EDT Cirrhosis of liver Obesity Hyperlipidemia Fatigue Elevated random blood glucose level PROTHROMBIN TIME Routine 05/02/2013 12:3 6 PM EDT Cirrhosis of liver Obesity Hyperlipidemia Fatigue Elevated random blood glucose level CBC (WITH DIFF) Routine 05/02/2013 12:36 PM EDT Cirrhosis of liver Obesity Hyperlipidemia Fatigue Elevated random blood glucose level MELVIN ANTIBODY SCREEN Routine 05/02/2013 1 2:36 PM EDT Cirrhosis of liver Obesity Hyperlipidemia Fatigue Elevated random blood glucose level TSH Routine 05/02/2013 12:36 PM EDT Cirrhosis of liver Obesity Hyperlipidemia Fatigue Elevated random blood glucose level HEMOGLOBIN A1C Routine 05/02/2013 12:36 PM EDT Cirrhosis of liver Obesity Hyperlipidemia Fatigue Elevated random blood glucose level IGA Routine 05/02/2013 12:36 PM EDT Cirrhosis of liver Obesity Hyperlipidemia Fatigue Elevated random blood glucose level IGM Routine 05/02/2013 12:36 PM EDT Cirrhosis of liver Obesity Hyperlipidemia Fatigue Elevated random blood glucose level IGG Routine 05/02/2013 12:36 PM EDT Cirrhosis of liver Obesity Hyperlipidemia Fatigue Elevated random blood glucose level LIPID PANEL (REFLEX DIRECT LDL) Routine 05/02/2013 12:36 PM EDT Cirrhosis of liver Obesity Hyperlipidemia Fatigue Elevated random blood glucose level COMPREHENSIVE METABOLIC PANEL Routine 05/02/2013 12:36 PM EDT Cirrhosis of liver Obesity Hyperlipidemia Fatigue Elevated random blood glucose level UPPER GI ENDOSCOPY Routine 05/02/2013 11 :29 AM EDT Cirrhosis of liver COLONOSCOPY Routine 05/02/2013 11:29 AM EDT Cirrhosis of liver documented in this encounter Results * (ABNORMAL) Differential, Automated (05/02/2013 12:36 PM EDT) Neutrophil % 69.1 34.0 - 71.0 % CERNER MILLENNIUM Neutrophil Absolute 2.32 1.50 - 6.30 x10(3)/mc L CERNER MILLENNIUM Lymph % 21.7 19.0 - 53.0 % CERNER MILLENNIUM Lymphocytes Abs 0.7(L) 1.0 - 3.6 x10(3)/mc L CERNER MILLENNIUM Monocyte % 7.1 4.0 - 13.0 % CERNER MILLENNIUM Monocyte Abs 0.2 0.2 - 1.0 x10(3)/mc L CERNER MILLENNIUM Eos % 1.5 0.0 - 7.0 % CERNER MILLENNIUM Eosinophils Abs 0.0 0.0 - 0.5 x10(3)/mc L CERNER MILLENNIUM Basophil % 0.6 0.0 - 2.0 % CERNER MILLENNIUM Baso Absolute 0.0 0.0 - 0.2 x10(3)/mc L CERNER MILLENNIUM Immature Gran % 0.00 0.00 - 0.66 % CERNER MILLENNIUM Comment: Immature granulocytes(IG's)percentage and absolute count will include metamyelocytes, myelocytes, and promyelocytes. Blood smears from CBCs yielding IG's will be scanned manually for concordance. If this scan disagrees with the automated IG or if promyelocytes are noted, a manual differential will be performed. Immature Gran Absolute 0.00 0.00 - 0.05 x10(3)/mc L CERNER MILLENNIUM Blood specimen (specimen) 05/02/2013 12:36 PM EDT 05/02/2013 12:46 PM EDT Juventino Esteban MD HEMATOLOGY [facility]ABL ES [facility] * .A1AT Genotype (05/02/2013 12:36 PM EDT) A1AT Genotype A1AT (SERPINA1) GENOTYPING RESULTS: S ALLELE: NOT DETECTED Z ALLELE: NOT DETECTED INTERPRETATION: The absence of both the S and Z alleles in this patient along with a separate test showing normal levels of A1AT protein (150mg/dL) in this patient s serum suggest this patient does not have an A1AT deficiency. Although the S and Z alleles were not detected by this test, the presence of other less common A1AT variants cannot be excluded. ??These results should be interpreted based on the complete clinical presentation which may warrant additional testing and/or a genetic consultation. METHOD: Two regions of interest in the serpin peptidase inhibitor, clade A (alpha-1 antiproteinase, antitrypsin), member 1 gene (SERPINA1), commonly alpha-1 anti-trypsin or A1AT) that are known to contain variant alleles resulting in the S phenotype ([id number]:c.863 A>T; [id number]) and the Z phenotype (c. 1096G>A; [id number]) are amplified and genotyped by two separate PCR assays each containing two primers for amplification and two probes for detection the normal and variant alleles. ??Genomic DNA used in this testing was isolated from peripheral blood. LIMITATIONS AND DISCLAIMERS: ??Although unlikely, rare variants or polymorphisms (known or unknown) have the potential to interfere with the performance of this test, producing false negative or false positive results. ??When genotyping results are not consistent with other clinical observations or test results, additional testing should be considered. This test was developed and its performance characteristics determined by the Molecular Pathology Laboratory at [facility]. This test is used for clinical purposes and should not be considered as investigational or for research purposes. ??It has not been cleared or approved by the U.S. Food and Drug Administration. However, as a CLIA licensed laboratory, our facility is approved for such high-complexity clinical testing. KEVON ARREOLA Comment: [VERIFIED DATE]05.14.13 Verified By:Tiny Edouard MD Pathologist (Electronic Signature) Blood specimen (specimen) 05/02/2013 12:36 PM EDT 05/02/2013 12:57 PM EDT Narrative Resulting Agency Comment Spec In Lab Juventino Esteban MD CHEMISTRY ORDERABLE S Performing Organization Address [facility] Co de Phone Number KEVON ARREOLA * Tissue transglutaminase, IgA (05/02/2013 12:36 PM EDT) TTG IgA Ab <4.0 <=3.9 u/ml [facility] Comment: Result Interpretation: Negative: ?<4 U/mL Weak Positive: ??4-10 U/mL Positive: ?>10 U/mL Blood specimen (specimen) 05/02/2013 12:36 PM EDT 05/02/2013 2:24 PM EDT Narrative Resulting Agency Comment Spec In Lab Juventino Esteban MD IMMUNOLOGY ORDERABL ES Performing Organization Address [place]/[facility] Co de Phone Number [facility]ON [facility] * Ceruloplasmin (05/02/2013 12:36 PM EDT) Ceruloplasmin 24.7 16.0 - 45.0 mg/dL [facility] Comment: Test Performed by: [facility] [employer] [address] [address] Supervisor Records Change: Glenny Chapa, Ph.D. Blood specimen (specimen) 05/02/2013 12:36 PM EDT 05/02/2013 1:51 PM EDT Narrative Resulting Agency Comment Spec In Lab Juventino Esteban MD CHEMISTRY ORDERABLE S Performing Organization Address [facility] Co de Phone Number KEVON CUEVASIUM * A1AT Serum Concentration (05/02/2013 12:36 PM EDT) A1AT 150 100 - 190 mg/dL CERNER MILLENNIUM Comment: Test Performed by: [facility] [employer] [address] [address] Supervisor Records Change: Glenny Chapa, Ph.D. Blood specimen (specimen) 05/02/2013 12:36 PM EDT 05/02/2013 1:51 PM EDT Narrative Resulting Agency Comment Spec In Lab Juventino Esteban MD CHEMISTRY ORDERABLE S Performing Organization Address [facility] Co de Phone Number CERNER MILLENNIUM * MELVIN (05/02/2013 12:36 PM EDT) MELVIN Neg Neg CERNER MILLENNIUM Blood specimen (specimen) 05/02/2013 12:36 PM EDT 05/02/2013 2:24 PM EDT Narrative Resulting Agency Comment Spec In Lab Juventino Esteban MD LAB SEND OUT ORDERA BLES Performing Organization Address [facility] Co de Phone Number CERNER VANCEENNIUM * Smooth Muscle Antibody (05/02/2013 12:36 PM EDT) Sm Muscle Ab (MARCH) Negative Negative CERNER MILLENNIUM Comment: Test Performed by: [address] [address] Supervisor Records Change: Chance Godinez III, M.D. Blood specimen (specimen) 05/02/2013 12:36 PM EDT 05/02/2013 1:46 PM EDT Narrative Resulting Agency Comment Spec In Lab Juventino Esteban MD LAB SEND OUT ORDERA LUIS KEVON CUEVASIUM * Mitochondrial Antibody, M2 (05/02/2013 12:36 PM EDT) Mitochon Ab (MAY) <0.1 <0.1 (Negative) U CERNER MILLENNIUM Comment: Test Performed by: [address] [address] Supervisor Records Change: Chance Godinez III, M.D. Blood specimen (specimen) 05/02/2013 12:36 PM EDT 05/02/2013 1:46 PM EDT Narrative Resulting Agency Comment Spec In Lab Juventino Esteban MD LAB SEND OUT ORDERA EDYTAS Performing Organization Address [facility] Co de Phone Number CERAMY WOODARDENNIUM * (ABNORMAL) IgA (05/02/2013 12:36 PM EDT) IgA 484(H) 70 - 400 mg/dL CERNER MILLENNIUM Blood specimen (specimen) 05/02/2013 12:36 PM EDT 05/02/2013 12:46 PM EDT Narrative Resulting Agency Comment Spec In Lab Juventino Esteban MD CHEMISTRY ORDERABLE S Performing Organization Address [place]/[facility]/ZIP Co de Phone Number CERAMY MILLENNIUM * IgG (05/02/2013 12:36 PM EDT) Immunoglobulin G 1,059 700 - 1,600 mg/dL CERNER MILLENNIUM Blood specimen (specimen) 05/02/2013 12:36 PM EDT 05/02/2013 12:46 PM EDT Narrative Resulting Agency Comment Spec In Lab Juventino Esteban MD CHEMISTRY ORDERABLE S CERAMY WOODARDENNIUM * IgM (05/02/2013 12:36 PM EDT) IgM 77 40 - 230 mg/dL KEVON ARREOLA Blood specimen (specimen) 05/02/2013 12:36 PM EDT 05/02/2013 12:46 PM EDT Narrative Resulting Agency Comment Spec In Lab Juventino Esteban MD CHEMISTRY ORDERABLE S Performing Organization Address [facility] Co de Phone Number KEVON ARREOLA * Hepatitis B Core Antibody, Total (05/02/2013 12:36 PM EDT) Hepatitis B Core Antibody Negative Negative KEVON ARREOLA Blood specimen (specimen) 05/02/2013 12:36 PM EDT 05/02/2013 12:46 PM EDT Narrative Resulting Agency Comment Spec In Lab Juventino Esteban MD CHEMISTRY ORDERABLE S Performing Organization Address [facility] Co de Phone Number KEVON ARREOLA * Hepatitis B Surface Antibody (05/02/2013 12:36 PM EDT) Hepatitis B Surface Antibody Positive KEVON ARREOLA Comment: Expected Results: Vaccinated: Positive Unvaccinated: Negative Please note: A positive result for this assay is consistent with a concentration of anti-HBs antibodies >10mIU/ml, which indicates that anti-HBs antibodies have been detected at levels consistent with protective immunity against HBV infection. Blood specimen (specimen) 05/02/2013 12:36 PM EDT 05/02/2013 12:46 PM EDT Narrative Resulting Agency Comment Spec In Lab Juventino Esteban MD CHEMISTRY ORDERABLE S Performing Organization Address [facility] Co de Phone Number KEVON ARREOLA * Hepatitis B Surface Antigen (05/02/2013 12:36 PM EDT) Hepatitis B Surface Antigen Negative Negative [facility] Blood specimen (specimen) 05/02/2013 12:36 PM EDT 05/02/2013 12:46 PM EDT Narrative Resulting Agency Comment Spec In Lab Juventino Esteban MD CHEMISTRY ORDERABLE S Performing Organization Address [facility] Co de Phone Number KEVON ARREOLA * (ABNORMAL) Hepatitis A Antibody, Total (05/02/2013 12:36 PM EDT) Hepatitis A ANTIBODY, TOTAL Positive(A ) Negative KEVON ARREOLA Blood specimen (specimen) 05/02/2013 12:36 PM EDT 05/02/2013 12:46 PM EDT Narrative Resulting Agency Comment Spec In Lab Juventino Esteban MD CHEMISTRY ORDERABLE S Performing Organization Address [facility] de Phone Number KEVON ARREOLA * TSH (05/02/2013 12:36 PM EDT) Thyroid Stimulating Hormone 2.27 0.27 - 4.20 mcIU/mL KEVON ARREOLA Blood specimen (specimen) 05/02/2013 12:36 PM EDT 05/02/2013 12:46 PM EDT Narrative Resulting Agency Comment Spec In Lab Juventino Esteban MD CHEMISTRY ORDERABLE S Performing Organization Address [facility] de Phone Number KEVON ARREOLA * Hemoglobin A1c (05/02/2013 12:36 PM EDT) Hemoglobin A1c 5.6 4.3 - 6.1 % KEVON ARREOLA Comment: The [place] Diabetes Association (ADA) has stated that HbA1c values >or= 6.5% are consistent with the diagnosis of diabetes mellitus. In the absence of hyperglycemia (i.e. plasma glucose > 200 mg/dL) or classic symptoms of hyperglycemia a repeat measurement of HbA1c should be performed on a separate sample to confirm the diagnosis. The ADA also considers an HbA1c value between 5.7% and 6.4% to be consistent with an increased risk of diabetes (prediabetes). Patients with an HbA1c value in this range should be counseled about their increased risk of progressing to diabetes. Reference: Position Statement: Standards of Medical Care in Diabetes 2013. Diabetes Care 2013:36;suppl 1:S11-S66. Estimated Average Glucose 114 mg/dL [facility] Comment: eAG equivalents for HbA1c percentages: HbA1c(%) ?eAG(mg/dL) 6.0 ?126 6.5 ?140 7.0 ?154 7.5 ?169 8.0 ?183 8.5 ?197 9.0 ?212 9.5 ?226 10.0 ? 240 Limitations: The eAG calculation has not been validated on women, individuals below 18 years old and above 70 years old, and individuals with hemoglobinopathies. Additional resources are available on the ADA website: ??http://professional.diabetes.org/glucosecalculator.aspx Sony BUTLER, Angel J, Diana R, et al. ??Translating the A1C assay into estimated average glucose values. ??Diabetes Care 2008:31(8):1863-6406. Blood specimen (specimen) 05/02/2013 12:36 PM EDT 05/02/2013 12:46 PM EDT Narrative Resulting Agency Comment Spec In Lab Juventino Esteban MD CHEMISTRY ORDERABLE S [facility] * (ABNORMAL) Lipid panel (fasting) (05/02/2013 12:36 PM EDT) [facility] Signature Cholesterol, Total 162 <=199 mg/dL [facility] Comment: Recommendations of the NCEP Adult Treatment Panel for the following risk cutoff thresholds for the [place] Citizen population: Desirable: <200 mg/dL Borderline High: 200-239 mg/dL High: > or = 240 mg/dL Triglyceride 113 <=149 mg/dL CERNER MILLENNIUM Comment: Reference Range: Normal triglycerides: ??<150 mg/dL Borderline high: ??150-199 mg/dL High: ??200-499 mg/dL Very high: ??>ya=183 mg/dL NIDHI 2001; 285(19):1353-6505 HDL Cholesterol 39(L) >=40 mg/dL [facility] NER MILLENNIUM Comment: Reference range: ??Low HDL: ?? < 40 mg/dL ??Normal: ?40-60 mg/dL ??Desirable: > 60 mg/dL NIDHI 2001; 285(19):0164-8368 LDL Cholesterol 100(H) <=99 mg/dL [facility] NER MILLENNIUM Comment: Reference range: ?? Optimal: ?<100 mg/dL ?? Near Optimal/Above Optimal: ?? 100-129 mg/dL ?? Borderline high: ?130-159 mg/dL ?? High: ? 160-189 mg/dL ?? Very high: ?>yz=948 mg/dL NIDHI 2001: 285(19):8907-9583 Cholesterol/HDL Ratio 4.2 ratio [facility]ON[facility] Comment: A Cholesterol to HDL ratio below 4:1 is desirable. ??Studies suggest that increased CAD risk occurs at ratios above 5 for females and above 6 for men. ? [place] Heart Association ??(http://www.americanheart.org) ? Dolly Int Med, 1994; 121:641 ? AM J Med, 1998; 105(1A):48S Blood specimen (specimen) 05/02/2013 12:36 PM EDT 05/02/2013 12:46 PM EDT Narrative Resulting Agency Comment Spec In Lab Juventino Esteban MD CHEMISTRY ORDERABLE S KEVON ARREOLA * AFP tumor marker (05/02/2013 12:36 PM EDT) Alpha Fetoprotein 2 <=5 ng/mL [facility] Comment: Note new Reference Range as of 07-31-2012. Reference: Immulite 2000 AFP package insert ([id number], 2009-08-14) Blood specimen (specimen) 05/02/2013 12:36 PM EDT 05/02/2013 2:24 PM EDT Narrative Resulting Agency Comment Spec In Lab Juventino Esteban MD CHEMISTRY ORDERABLE S Performing Organization Address [facility] de Phone Number [facility] * (ABNORMAL) Prothrombin Time (05/02/2013 12:36 PM EDT) Pathologist [facility] Prothrombin Time 15.3(H) 12.0 - 15.0 sec [facility] Comment: [facility] Transfusion Committee Guidelines: INR less than 2.0, PTT less than OR equal to 43.5 seconds, or Fibrinogen greater than or equal to 100 mg/dl indicate adequate procoagulant activity for hemostasis in patients without underlying bleeding disorders. International Normalization Ratio 1.2(H) 0.9 - 1.1 [facility] Blood specimen (specimen) 05/02/2013 12:36 PM EDT 05/02/2013 12:46 PM EDT Narrative Resulting Agency Comment Spec In Lab Juventino Esteban MD HEMATOLOGY ORDERABL ES Performing Organization Address [facility] Co de Phone Number [facility] AR[facility]OLA * (ABNORMAL) Comprehensive metabolic panel (non-fasting) (05/02/2013 12:36 PM EDT) Pathologist [facility] Glucose 80 60 - 199 mg/dL [facility] Comment:Diabetes: >=200 mg/d L plus symptoms Blood Urea Nitrogen 10 8 - 18 mg/dL [facility] Creatinine 0.85 0.70 - 1.20 mg/dL [facility] Comment: Please note that the pediatric reference intervals supplied above were not validated at [facility]. Results from pediatric patients should be interpreted in conjunction to the patient's age, height and muscle mass. Sodium 139 135 - 145 mmol/L CERNER MILLENNIUM Potassium 4.1 3.5 - 5.0 mmol/L CERNER MILLENNIUM Comment: Please note: ??Patients with WBC >100,000 may have falsely elevated Potassium levels. ??For accurate Potassium quantification in these patients send serum separator tube (gold top) for subsequent determinations. ??Contact the Clinical Chemistry Laboratory if there are any questions. Chloride 102 98 - 107 mmol/L CERNER MILLENNIUM Carbon Dioxide 25 22 - 31 mmol/L CERNER MILLENNIUM Anion Gap 12 5 - 15 mmol/L CERNER MILLENNIUM Calcium 8.8 8.5 - 10.5 mg/dL CERNER MILLENNIUM Protein, Total 7.0 6.4 - 8.3 gm/dL CERNER MILLENNIUM Albumin 4.1 3.2 - 5.2 gm/dL CERNER MILLENNIUM Aspartate Aminotransferase 32(H) 0 - 30 unit/L CERNER MILLENNIUM Alanine Aminotransferase 30 0 - 30 unit/L CERNER MILLENNIUM Alkaline Phosphatase 97 40 - 104 unit/L CERNER MILLENNIUM Bilirubin, Total 0.4 0.2 - 1.3 mg/dL CERNER MILLENNIUM Bilirubin, Direct 0.1 0.0 - 0.3 mg/dL CERNER MILLENNIUM Est Glomerular Filtration Rate >60 >=60 CERNER MILLENNIUM Comment: This estimated GFR (eGFR) value was [...] the following links into your internet browser. http://www.nkdep.nih.gov/lab-evaluation.shtml http://www.kidney.org/professionals/ Blood specimen (specimen) 05/02/2013 12:36 PM EDT 05/02/2013 12:46 PM EDT Narrative Resulting Agency Comment Spec In Lab Juventino Esteban MD CHEMISTRY ORDERABLE S KEVON ARREOLA * (ABNORMAL) CBC (with Diff) (05/02/2013 12:36 PM EDT) White Blood Cell 3.4(L) 4.0 - 10.0 x10(3)/mc L CERNER MILLENNIUM Red Blood Cell 4.62 3.93 - 5.22 x10(6)/mc L CERNER MILLENNIUM Hemoglobin 12.7 11.2 - 15.7 gm/dL CERNER MILLENNIUM Hematocrit 39.8 34.0 - 45.0 % CERNER MILLENNIUM Mean Cell Volume 86.1 79.0 - 94.0 fL CERNER MILLENNIUM Mean Cell Hemoglobin 27.5 26.6 - 32.2 pg CERNER MILLENNIUM Mean Cell Hemoglobin Concentration 31.9(L) 32.0 - 36.5 gm/dL CERNER MILLENNIUM Platelet 82(L) 145 - 370 x10(3)/mc L CERNER MILLENNIUM RDW Standard Deviation 47.5(H) 35.0 - 46.0 fL CERNER MILLENNIUM RDW coefficient of variation 15.0(H) 10.9 - 14.4 % CERNER MILLENNIUM Mean Platelet Volume 10.3 9.0 - 12.0 fL CERNER MILLENNIUM Blood specimen (specimen) 05/02/2013 12:36 PM EDT 05/02/2013 12:46 PM EDT Narrative Resulting Agency Comment Spec In Lab Juventino Esteban MD HEMATOLOGY ORDERABL ES KEVON ARREOLA documented in this encounter Visit Diagnoses Diagnosis Cirrhosis of liver- Primary Cirrhosis of liver without mention of alcohol Obesity Obesity, unspecified Hyperlipidemia Other and unspecified hyperlipidemia Fatigue Other malaise and fatigue Elevated random blood glucose level Other abnormal glucose documented in this encounter Care Teams Real Estate Firm Manager Relationship Specialty Start Date End Date Emigdio Centeno MD [address] [place] [address] PCP - General 03/27/13 07/08/16 documented as of this encounter
--- OUTSIDE RECORDS SUMMARY | 2024-11-22 17:36 | XMS_ITS | Encounter Summary ---
Author Organization [facility] Address [facility] [address] [place] [address] Care Team Providers Care Counselor At Law Name Role Phone Emigdio Centeno MD Primary Care Provider [phone] Encounter Details Date Type Department Care Team (Late st Contact Info) Description 06/06/2013 10:15 AM EDT - 06/06/2013 11:15 AM EDT Surgery [place] [id number] Juventino Esteban MD [facility] [address] [place] [address] EGD, UPPER GI ENDOSCOPY (WRVU 2.09) Social [...] Sign Reading Time Taken Comments Blood Pressure 113/68 06/06/2013 11:48 AM EDT Pulse 84 06/06/2013 11:48 AM EDT Temperature - - Respiratory Rate 16 06/06/2013 11:48 AM EDT Oxygen Saturation 96% 06/06/2013 11:48 AM EDT Inhaled Oxygen Concentration - - Weight - - Height - - Body Mass Index - - documented in this encounter Discharge Instructions * Discharge Instructions* Janette Cruz RN - 06/06/2013 1:01 PM EDT Medications You may have a mild sore [...] your doctor has told you not to). For future colonoscopies, consider liquid diet for at least 3-4 days and taking at least entire gallon go-litely IV SITE-- slight redness, or tenderness is [...] often you need to be checked. Tuesday[facility]Tuesday [facility] [phone] 8a-5p Same Day Endo [phone] 7a-8p Otherwise contact [phone] and ask to speak to the sports physician natural resources extension educator Follow up care is a brown part of your treatment and safety. Be sure to make and go to all appointments, and call your doctor if you are having problems. Discharge instructions reviewed with patient who expresses understanding Tuesday-Tuesday Clinic [phone] 8a-5p Same Day Endo [phone] 7a-8p Otherwise contact [phone] and ask to speak to the sports physician natural resources extension educator Follow-up care is a brown part of your treatment and safety. Be sure to make and go to all appointments, and call your doctor if you are having problems. Instructions have been reviewed and patient expresses understanding documented in this encounter Medications at Time of Discharge Medication Sig Dispensed Refills Start Date End Date naproxen sodium (ALEVE) 220 mg tablet Take 220 mg by mouth 2 times daily (with meals). 04/02/2014 ondansetron (ZOFRAN) 4 mg tablet Take 4 mg by mouth every 8 hours as needed. 04/02/2014 Lactulose 10 gram/15 mL Syrp Take 30 mLs by mouth 2 times daily. 1800 mL 3 05/02/2013 08/15/2013 OXYcodone (ROXICODONE) 5 mg immediate release tablet [...] mg by mouth 3 times daily. 04/18/2019 ergocalciferol (ERGOCALCIFEROL) 50,000 unit capsuleIndications:Panc ytopenia Take 50,000 Units by mouth once a week. 04/02/2014 documented as of this encounter Progress Notes * Janette Cruz RN - 06/06/2013 1:[address] Esteban contacted via pager after attempt in gastro office and defer page to cell. not in ENDO. Pt reviews reports, has many questions re liver issues, will follow up on GI sched visit on jun 28. * Janette Cruz RN - 06/06/2013 12:39 PM EDT Pt reports pain, she has not brought any oxycodone w her * Janette Cruz RN - 06/06/2013 11:53 AM EDT IV access reported as poor by tressa. Pt currently denies pain at IV access, no redness, no swelling at present. Slow to infuse documented in this encounter H&P Notes * Juventino Esteban MD - 06/06/2013 10:35 AM EDT Gastroenterology and Hepatology Pre-Procedure History and Physical Exam Procedure: EGD: Colonoscopy: Indication: Cirrhosis screen for varices, Screening colonoscopy no persona or family history of colon cancer or polyps Patient Active Problem List Diagnoses Code ??? Hypothyroidism 244.9 ??? Depression 311 ??? Chronic viral hepatitis C 070.54 ??? Current every day smoker 305.1 ??? S/P hernia repair V45.89 ??? Pancytopenia 284.19 ??? Cirrhosis of liver 571.5 ??? Obesity 278.00 ??? Hyperlipidemia 272.4 EXAM: HEENT: Airway examined, oropharynx clear LUNGS: Clear to auscultation HEART: Regular rate and rhythm, normal S1, S2 ABDOMEN: Normal bowel sounds, soft, non tender, non distended, A/P Proceed with the planned endoscopic procedure. Risks and benefits of the procedure explained to the patient. Consent signed. documented in this encounter Miscellaneous Notes * Miscellaneous - Provider, Scanning - 06/06/2013 9:40 AM EDT documented in this encounter Plan of Treatment Upcoming Encounters Date Type Department Care Team (Late st Contact Info) Description 11/29/2024 1:30 PM EST Appointment XRay at [address] [place] [phone] [facility] [place] [address] 11/29/2024 2:20 PM EST Office [place] [address] [facility] [place] [address] documented as of this encounter Procedures Procedure Name Priority Date/Time Associated Diagnosis Comments COLONOSCOPY, DIAGNOSTIC (WRVU 3.26) 06/06/2013 10:39 AM EDT Cirrhosis of liver EGD, UPPER GI ENDOSCOPY (WRVU 2.09) 06/06/2013 10:39 AM EDT Cirrhosis of liver UPPER GI ENDOSCOPY Routine 06/06/2013 10 :35 AM EDT COLONOSCOPY Routine 06/06/2013 10:34 AM EDT documented in this encounter Results * UPPER GI ENDOSCOPY (06/06/2013 10:35 AM EDT) [facility] UPPER GI ENDOSCOPY [facility] Endoscopy ___ Patient Name: Phyliss Yun ? Procedure Date: 06/06/2013 10:35 AM ? N: [id number] ? Date of : 1960 ? Age: 52 ? Order #: [id number] ? ___ Procedure: ? Upper GI endoscopy Indications: ? Cirrhosis rule out esophageal varices Providers: ? Juventino Esteban MD Referring MD: ?Emigdio Centeno MD Medicines: ? Monitored Anesthesia Care Complications: ? No immediate complications. ___ Procedure: ? Pre-Anesthesia Assessment: ? - Prior [...] ? procedure well. ? Findings: ? The examined esophagus was normal. ? Mild portal hypertensive gastropathy was found in the ? entire examined stomach. ? The examined duodenum was normal. ? Impression: ?- Normal esophagus. ? - Portal hypertensive gastropathy. ? - Normal examined duodenum. Recommendation: ?- Repeat the upper endoscopy in 3 ? years for surveillance. ? Procedure Code(s): ?? --- Professional --- ? 75460, Upper gastrointestinal ? endoscopy including esophagus, ? stomach, and either the duodenum ? and/or jejunum as appropriate; ? diagnostic, with or without ? collection of specimen(s) by brushing ? or washing (separate procedure) CPT (R) 2012 [employer]. All Rights Reserved. The codes documented in this report are preliminary and upon estimator project manager review may be revised to meet current compliance requirements. __ Juventino Esteban MD 06/06/2013 10:57 AM Number of Addenda: 0 Note Initiated On: 06/06/2013 10:35 AM PROVATION 06/06/2013 10:3 5 AM EDT Emigdio Centeno MD GENERAL SURGICAL ORD ERABLES PROVATION * COLONOSCOPY (06/06/2013 10:34 AM EDT) COLONOSCOPY [facility] Endoscopy Patient Name: Tara Yun ? Procedure Date: 06/06/2013 10:34 AM ? Date of : 1960 ? Age: 52 ? Order #: [id number] ? Procedure: ? Colonoscopy Indications: ? Screening for colorectal malignant ? neoplasm Providers: ? Juventino Esteban MD, Juliet Lyon ? KENN Snider Referring MD: ?Emigdio Centeno MD Medicines: ? Monitored Anesthesia Care Complications: [...] under direct visualization, ? advanced to the cecum, identified by ? appendiceal orifice & ileocecal ? valve. Careful inspection was made as ? the colonoscope was withdrawn. The ? colonoscopy was performed without ? difficulty. The patient tolerated the ? procedure well. The quality of the ? bowel preparation was poor. ? Findings: ? The perianal and digital rectal examinations were ? normal. ? The colon (entire examined portion) appeared normal. ? Impression: ?- Preparation of the colon was poor. ? - The entire examined colon is normal. Recommendation: ?- Repeat colonoscopy in 3 years for ? surveillance with 2 day prep ? ____ Juventino Esteban MD 06/06/2013 11:38 AM Number of Addenda: 0 Note Initiated On: 06/06/2013 10:34 AM PROVATION 06/06/2013 10:3 4 AM EDT Emigdio Centeno MD GENERAL SURGICAL ORD ERABLES PROVATION documented in this encounter Visit Diagnoses Diagnosis Cirrhosis of liver Cirrhosis of liver without mention of alcohol documented in this encounter Administered Medications Inactive Administered Medications - up to 3 most recent administrations Medication Order MAR Action Action Date Dose Rate Site OXYcodone-acetaminophen (PERCOCET) 5-325 mg per tablet 1 tablet 1 tablet, Oral, EVERY 4 HOURS PRN, Pain, Starting on Tue06/06/13 at 1322, Until Tue06/06/13 at 1757, Maximum dose of acetaminophen is 4000 mg from all sources in 24 hours. Given 06/06/2013 1:20 PM EDT 1 tablet documented in this encounter Active and Recently Administered Medications Times are shown in EDT. PRN Medication Order 06/04/2013 06/05/2013 06/06/2013 OXYcodone-acetaminophen (PERCOCET) 5-325 mg per tablet 1 tablet (CANCELED) 1 tablet, Oral, EVERY 4 HOURS PRN, Pain, Starting on Tue06/06/13 at 1322, Until Tue06/06/13 at 1757, Maximum dose of acetaminophen is 4000 mg from all sources in 24 hours. 1320 (Given - Provid er: Janette Cruz RN) documented in this encounter Care Teams Counselor At Law Relationship Specialty Start Date End Date Emigdio Centeno MD [address] [place] [address] PCP - General 03/27/13 07/08/16 documented as of this encounter
--- OUTSIDE RECORDS SUMMARY | 2024-11-22 17:36 | XMS_ITS | Encounter Summary ---
Author Organization [facility] [address] [place] [address] Care Team Providers Care Accounting Administrator Name Role Phone Emigdio Centeno MD Primary Care Provider [phone] Reason for Visit * Reason Comments Follow-up Encounter Details Date Type Department Care Team (Late st Contact Info) Description 08/15/2013 1:30 PM EDT Follow-Up Gastroenterology at [facility] [place] [phone] CLINIC, Sharon Caraballo, DECORATING INSTRUCTOR Cirrhosis of liver (Primary Dx) Discharge Disposition: Home Social History [...] Sign Reading Time Taken Comments Blood Pressure 113/65 08/15/2013 1:12 PM EDT Pulse 93 08/15/2013 1:12 PM EDT Temperature - - Respiratory Rate - - Oxygen Saturation - - Inhaled Oxygen Concentration - - Weight 105.7 kg (233 lb) 08/15/2013 1:12 PM EDT Height 162.6 cm (5' 4) 08/15/2013 1:12 PM EDT Body Mass Index 39.99 08/15/2013 1:12 PM EDT documented in this encounter Progress Notes * Sharon Mark APRN - 08/15/2013 12:56 PM EDT Subjective: Patient ID: Rissa Yun is a 53 y.o. female. HPI Problem List: 1. Cirrhosis A. Labs - see below B. Imaging - CT scan 04/30/13 without liver lesions C. Liver biopsy - none to date D. Complications 1. Ascites, trace A. 05/01/13 Treatment - discontinue NSAID's, ASA, alcohol, limit sodium to <2000 mg daily 2. Hepatic Encephalopathy A. 05/01/13 Treatment - initiate lactulose 30 cc BID B. 06/26/13 Increase Lactulose 30 cc TID 3. Portal Hypertension A. EGD - 06/06/13 mild portal hypertensive gastropathy. No varices. Due repeat 05/2016 2. HCV Ab positive A. HCV RNA [...] Bone Marrow Biopsy 04/09/13 Preventative Health: 1. HAV/HBV: (+)/(+) 2. Portal HTN - EGD 06/06/13 (no varices). Due again in 05/2016 3. HCC surveillance - Ultrasound 08/15/13 (no liver lesions). AFP 2 (05/02/13) 4. Colonoscopy - no polyps but poor prep. Due for repeat 05/2016. Initial Consult 05/02/13: Ms. Yun is a very pleasant 52 year old white female seen today at [facility] in consultation for cirrhosis in setting of positive HCV antibody. She was diagnosed with hepatitis C about 15 years ago. She was never treated. She denies experiencing an icteric illness. On recent testing here, her HCV RNA was undetectable (<43-). She was recently diagnosed with cirrhosis of the liver after her ventral hernia repair in [place] performed on 01/11/13 during which she required [...] She has not had her screening colonoscopy. Interval History 06/26/13: Ms. Yun returns today in follow-up for cirrhosis. She tells me that she is very depressed and overwhelmed by her current health and situation with her daughters. She is not allowed to see her youngest grandchildren due to a rift between her domestic partner and son-in-law. She is significantly fatigued, sleeping a lot during the day. She is taking the lactulose 30 cc BIDbut having very erratic BM. She will have several BM one day then not move her bowels for several days. She has periods where she will only drink tea for 2 days, then binge for several days after that. She continues to experience confusion. She has lost an additional 15 lbs in past 2 months. She is walking about 30 minutes most days. She lives out of her camper, which they take to [place] in August. Interval History 08/15/13: Ms. Yun returns today in follow-up. She continues to be significantly fatigued despite sleeping 12-14 hrs every night. She continues to have erratic BM, one day having terrible diarrhea all day then no BM for several days. She is trying to be more consistent with meals, eating supper every night.Confusion continues to be poorly controlled. She is leaving for [place] on 08/21/13. She wants to get a dog. Abdominal CT Scan 04/30/13: Findings Imaged portions [...] represent scarring from recent surgical intervention. Labs 05/02/13: WBC 3.4 Hgb 12.7 Plt 82 INR 1.2 Glucose 80 HbA1c 5.6 Creat 0.85 Alb 4.1 T. Bili 0.4 AP 97 AST 32 ALT 30 Ferritin 61 Iron 48 TIBC 342 Iron Sat 14 T. Chol 162 HDL 39 TG 113 LDL 100 AFP 2 A1AT 150 AMA negative MELVIN negative SMA negative IgG 1059 IgA 484 IgM 77 TTG IgA Ab negative TSH 2.27 Hep A Ab positive Hep B sAb positive Hep B cAb negative Hep B sAg negative Hep C RNA <43 not detected Ceruloplasmin 24.7 Colonoscopy 06/06/13: Findings: The perianal and digital rectal examinations were normal. The colon (entire examined portion) appeared normal. Impression: - Preparation of the colon was poor. - The entire examined colon is normal. Recommendation: - Repeat colonoscopy in 3 years for surveillance with 2 day prep EGD 06/06/13: Findings: The examined esophagus was normal. Mild portal hypertensive gastropathy was found in the entire examined stomach. The examined duodenum was normal. Impression: - Normal esophagus. - Portal hypertensive gastropathy. - Normal examined duodenum. Recommendation: - Repeat the upper endoscopy in 3 years for surveillance. Labs 08/15/13: Results for RISSA YUN ( ) as of 08/15/2013 12:59 Ref. Range 08/15/2013 11:53 WBC Latest Range: 4.0-10.0 x10(3)/mcL 4.7 RBC Latest Range: 3.93-5.22 x10(6)/mcL 4.92 Hemoglobin Latest Range: 11.2-15.7 gm/dL 14.4 Hematocrit Latest Range: 34.0-45.0 % 43.5 MCV Latest Range: 79.0-94.0 fL 88.4 MCH Latest Range: 26.6-32.2 pg 29.3 MCHC Latest Range: 32.0-36.5 gm/dL 33.1 RDWSD Latest Range: 35.0-46.0 fL 45.9 RDWCV Latest Range: 10.9-14.4 % 14.2 Platelets Latest Range: 145-370 x10(3)/mcL 88 (L) MPV Latest Range: 9.0-12.0 fL 10.4 Neutr Abs (ANC) Latest Range: 1.50-6.30 x10(3)/mcL 3.29 Neutrophils % Latest Range: 34.0-71.0 % 70.3 Immature Gran % Latest Range: 0.00-0.66 % 0.00 Lymphocytes % Latest Range: 19.0-53.0 % 18.6 (L) Monocytes % Latest Range: 4.0-13.0 % 9.0 Eosinophils % Latest Range: 0.0-7.0 % 1.7 Basophils % Latest Range: 0.0-2.0 % 0.4 Marcie Gran Abs Latest Range: 0.00-0.05 x10(3)/mcL 0.00 Lymphocytes Abs Latest Range: 1.0-3.6 x10(3)/mcL 0.9 (L) Monocyte Abs Latest Range: 0.2-1.0 x10(3)/mcL 0.4 Eosinophils Abs Latest Range: 0.0-0.5 x10(3)/mcL 0.1 Basophils Abs Latest Range: 0.0-0.2 x10(3)/mcL 0.0 PT Latest Range: 12.0-15.0 sec 15.1 (H) INR Latest Range: 0.9-1.1 1.2 (H) Sodium Latest Range: 135-145 mmol/L 140 Potassium Latest Range: 3.5-5.0 mmol/L 3.9 Chloride Latest Range: 98-107 mmol/L 102 CO2 Latest Range: 22-31 mmol/L 29 Anion Gap Latest Range: 5-15 mmol/L 9 BUN Latest Range: 8-18 mg/dL 9 Creatinine Latest Range: 0.70-1.20 mg/dL 0.84 Estimated GFR Latest Range: >=60 >60 Glucose Lvl Latest Range: 60-199 mg/dL 108 Calcium Latest Range: 8.5-10.5 mg/dL 9.1 Total Protein Latest Range: 6.4-8.3 gm/dL 7.3 Albumin Latest Range: 3.2-5.2 gm/dL 4.2 Total Bilirubin Latest Range: 0.2-1.3 mg/dL 0.5 Bili, Direct Latest Range: 0.0-0.3 mg/dL 0.1 Alk Phos Latest Range: 40-104 unit/L 100 AST Latest Range: 0-30 unit/L 28 ALT Latest Range: 0-30 unit/L 23 Abdominal Ultrasound 08/15/13: Impression Ultrasound - Abdomen Complete - Summary Cirrhosis with splenomegaly. No sonographic evidence of hepatic mass. Bilateral renal calculi. Ultrasound - Vascular evaluation - Summary The hepatic veins, portal veins and hepatic artery are patent with normal directional flow. Past Medical History Diagnosis Date ??? Hypothyroid ??? GERD (gastroesophageal reflux disease) ??? Hepatitis C antibody test positive ??? Depression ??? Hyperlipidemia ??? Asthma mild intermittent ??? Arthritis Past Surgical History Procedure Date ??? Bone marrow aspiration w/bx through same incision/site 04/09/2013 ([facility]) BONE MARROW ASP PERFORMED W/BX THRU BX INCISION performed by Dom Zeng MD at [facility] ??? Bone marrow bx, needle/trocar 04/09/2013 ([facility]) BONE MARROW,BIOPSY performed by Dom Zeng MD at [facility] ??? Ventral hernia repair 01/11/13 [place] [...] DIAGNOSTIC performed by Juventino Esteban MD at [facility] lactulose (CHRONULAC) 10 gram/15 mL solution, Active; ALPRAZolam (XANAX) 0.5 mg tablet, Active; ondansetron (ZOFRAN) 4 mg tablet, Active; OXYcodone (ROXICODONE) 5 mg immediate release tablet, Active;escitalopram (LEXAPRO) 20 mg tablet, Active; levothyroxine (SYNTHROID) 25 mcg tablet, Active; pantoprazole (PROTONIX) 40 mg tablet, Active; DOCUSATE SODIUM (COLACE ORAL), Active; FERROUS SULFATE, DRIED (IRON, DRIED, ORAL), Active ergocalciferol (ERGOCALCIFEROL) 50,000 unit capsule, Active; rifaximin (XIFAXIN) 550 mg Tab tablet,Active; naproxen sodium (ALEVE) 220 mg tablet, Active; Lactulose 10 gram/15 mL Syrp, Discontinued Allergies Allergen Reactions ??? Sulfa (Sulfonamide Antibiotics) Anaphylaxis, Itching and Rash ??? Cis Free Text Allergy KETORALAC. ??? Cis Free Text Allergy METOCLOPRAMIDE. ??? Codeine ??? Ketorolac Tromethamine ??? Metoclopramide ??? Morphine Abd. Pain, difficulty breathing ??? Prochlorperazine Family History Problem Relation Age of Onset ??? Type 2 Diabetes Mother ??? Type 2 Diabetes Brother ??? Asthma Brother ??? Coronary Artery Disease Maternal Grandmother ??? Coronary Artery Disease Maternal Grandfather ??? Hypertension Maternal Grandfather Family Status Relation Status Age ??? Mother [...] MVA accident ??? Paternal Grandmother 84 unknown History Social History ??? Marital Status: Spouse [...] domestic partner of 18 years. Lives in [facility]. 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 Done under sterile conditions.Ears pierced - done professionally. with HCV. Review of Systems Constitutional: Positive for diaphoresis (hot flashes x 4-5 years) and fatigue (significantly fatigued). Negative for fever, chills and unexpected weight change. HENT: Negative for trouble swallowing. Respiratory: Negative for cough, shortness of breath and wheezing. Cardiovascular: Negative for chest pain, palpitations and leg swelling. Gastrointestinal: Positive for nausea (rare nausea), abdominal pain (Abdominal pain around hernia repair sites. Pain may be slightly worse), diarrhea, constipation and abdominal distention (Intermittent). Negative for vomiting and blood in stool. Occasional heartburn. Taking Protonix 40 mg once daily. Has breakthrough heartburn twice a month alleviated with TUMS. Lactulose 30 cc 1-3 times daily. BM very erratic. Will have terrible diarrhea one day then no BM for several days. Eating one meal daily Genitourinary: Negative for hematuria. Musculoskeletal: Positive for back pain (back pain chronically) and arthralgias (knees, hands, shoulders, feet). Skin: Negative for color change and rash. Pruritus but attributes to changing soap/laundry detergent Neurological: Positive for weakness (attributes to fatigue) and light-headedness (lightheaded when does not eat). Negative for dizziness, tremors and syncope. Hematological: Bruises/bleeds easily. Psychiatric/Behavioral: Positive for confusion (poorly controlled), sleep disturbance (sleeps a lot(12-14 hrs/day) but despite this has significant fatigue) and dysphoric mood (poorly controlled). Negative for suicidal ideas. The patient is nervous/anxious. Objective: Physical Exam Constitutional: She is oriented to person, place, and time. She appears well- developed and well-nourished. Body mass index is 39.99 kg/(m^2). HENT: Head: Normocephalic and atraumatic. Eyes: [...] is no tenderness. There is no guarding. + HSM. Exam limited due to body habitus Musculoskeletal: She exhibits no edema. Lymphadenopathy: She has no cervical adenopathy. Neurological: She is alert and oriented to person, place, and time. No asterixis Skin: Skin is warm and dry. There is erythema (Palmar erythema. No spider angiomata). Psychiatric: She has a normal mood and affect. Her behavior is normal. Assessment and Plan: Ms. Yun is a very pleasant 53 year old white female seen today in follow-up for QUIROZ-related cirrhosis. 1. Cirrhosis, likely due to QUIROZ. MELD 8. Child's-Antunez A6. Her risk factors for QUIROZ include Class II Obesity, Hyperlipidemia, hypothyroid and pre-diabetes. Today's ultrasound reveals no liver lesions or ascites. She will need bi-annual HCC surveillance with imaging and labs. She drinks rarely, 1 alcoholic beverage 2-3 times yearly. I have advised that there is no safe limit to alcohol consumption and have advised complete abstinence. Tylenol is safe to take up to 2000 mg in 24 period. 2. Ascites, resolved. This was likely due to recent ventral hernia repair. She needs to discontinueand avoid all NSAID's and ASA. Avoid alcohol. Limit sodium to 2000 mg in 24 hr period. Continue to monitor. 3. Hepatic Encephalopathy, poorly controlled. Rx Rifaximin 550 mg BID. Continue Lactulose 30 cc once to TID and titrate so having 2-4 stools daily. She is constipated so this should alleviate her symptoms so she can discontinue Sennakot and Colace. 4. Portal HTN. Recent EGD reveals mild portal hypertensive gastropathy without varices. She will bedue for repeat in 05/2016. 5. Colonoscopy. She had poor prep for recent colonoscopy. Will plan to repeat in 2015 with 2-day prep. 6. RUQ Abdominal Pain S/P Ventral Hernia Repair 01/11/13. She tells me that she is need of mesh repair. Her ascites has now resolved. Should she require surgery it would be in her best interest to have this done here by Dr. Lazo. At this time she feels like she can wait until she returns in March to discuss repairing this. Will arrange for her to see Dr. Lazo when she returns to see me. 7. HCV Ab positive. She has HCV Ab positive but a negative viral load, indicating that she cleared the virus spontaneously. Hepatitis C is not the cause of her cirrhosis. 8. QUIROZ. I had a long discussion about QUIROZ. She is losing weight through exercise. Encouraged thatshe continue with exercise regimen. Her eating patterns are erratic. She missed her appt today withour marine electrician. Will try to reschedule. 9. Tobacco use. Rx Nicoderm patches 14 mg patch daily x 7 weeks, 7 mg patch daily x 2 weeks, then quit. She is discussing agreement that she can get a dog if she quits smoking, which is a motivating factor for her. All of her questions were answered at the conclusion of the visit. She verbalized understanding andagreement to the plan of care. Will plan to see her back in March with labs and MRI upon her return from [place]. Will coordinate appt with Dr. Lazo for the same day. 45 min of this 55 min appt spent counseling pt documented in this encounter Plan of Treatment Upcoming Encounters Date Type Department Care Team (Late st Contact Info) Description 11/29/2024 1:30 PM EST Appointment XRay at [address] [place] [address] Laurent Cabrera MD [facility] [place] [address] 11/29/2024 2:20 PM EST Office Visit Orthopaedics at [facility] [place] [address] Laurent Cabrera MD [facility] [place] [address] documented as of this encounter Procedures Procedure Name Priority Date/Time Associated Diagnosis Comments DIFFERENTIAL, AUTOMATED Routine 08/15/2013 11:53 AM EDT AFP TUMOR MARKER Routine 08/15/2013 11:5 3 AM EDT Cirrhosis of liver PROTHROMBIN TIME Routine 08/15/2013 11:5 3 AM EDT Cirrhosis of liver CBC (WITH DIFF) Routine 08/15/2013 11:53 AM EDT Cirrhosis of liver COMPREHENSIVE METABOLIC PANEL Routine 08/15/2013 11:53 AM EDT Cirrhosis of liver documented in [...] reviewed by the attending Juventino Esteban MD IM MRI ORDERABLES * (ABNORMAL) Differential, Automated (08/15/2013 11:53 AM EDT) Neutrophil % 70.3 34.0 - 71.0 % CERNER MILLENNIUM Neutrophil Absolute 3.29 1.50 - 6.30 x10(3)/mc L CERNER MILLENNIUM Lymph % 18.6(L) 19.0 - 53.0 % CERNER MILLENNIUM Lymphocytes Abs 0.9(L) 1.0 - 3.6 x10(3)/mc L CERNER MILLENNIUM Monocyte % 9.0 4.0 - 13.0 % CERNER MILLENNIUM Monocyte Abs 0.4 0.2 - 1.0 x10(3)/mc L CERNER MILLENNIUM Eos % 1.7 0.0 - 7.0 % CERNER MILLENNIUM Eosinophils Abs 0.1 0.0 - 0.5 x10(3)/mc L CERNER MILLENNIUM Basophil % 0.4 0.0 - 2.0 % CERNER MILLENNIUM Baso Absolute 0.0 0.0 - 0.2 x10(3)/mc L [facility] Immature Gran % 0.00 0.00 - 0.66 % [facility] Comment: Immature granulocytes(IG's)percentage and absolute count will include metamyelocytes, myelocytes, and promyelocytes. Blood smears from CBCs yielding IG's will be scanned manually for concordance. If this scan disagrees with the automated IG or if promyelocytes are noted, a manual differential will be performed. Immature Gran Absolute 0.00 0.00 - 0.05 x10(3)/mc L [facility] Blood specimen (specimen) 08/15/2013 11:53 AM EDT 08/15/2013 12:00 PM EDT Juventino Esteban MD HEMATOLOGY ORDERABL ES Performing Organization Address [facility] de Phone Number [facility] * AFP tumor marker (08/15/2013 11:53 AM EDT) Pathologist [facility] Alpha Fetoprotein 3.0 <=8.3 ng/mL [facility] Comment: Note: 06/05/2013; Methodology changed to V[employer] Immunoassay. Please review the interpretive criteria for any associated changes in reference interval. If appropriate this sample will be rebaselined. Results of rebaselining may take up to one week. Blood specimen (specimen) 08/15/2013 11:53 AM EDT 08/15/2013 12:19 PM EDT Narrative Resulting Agency Comment Spec In Lab Juventino Esteban MD CHEMISTRY ORDERABLE S Performing Organization Address [facility] Co de Phone Number [facility] * (ABNORMAL) Prothrombin Time (08/15/2013 11:53 AM EDT) Prothrombin Time 15.1(H) 12.0 - 15.0 sec [facility] Comment: [facility] Transfusion Committee Guidelines: INR less than 2.0, PTT less than OR equal to 43.5 seconds, or Fibrinogen greater than or equal to 100 mg/dl indicate adequate procoagulant activity for hemostasis in patients without underlying bleeding disorders. International Normalization Ratio 1.2(H) 0.9 - 1.1 CERNER MILLENNIUM Blood specimen (specimen) 08/15/2013 11:53 AM EDT 08/15/2013 12:00 PM EDT Narrative Resulting Agency Comment Spec In Lab Juventino Esteban MD HEMATOLOGY ORDERABL ES [facility] MILLENNIUM * Comprehensive metabolic panel (non-fasting) (08/15/2013 11:53 AM EDT) Glucose 108 60 - 199 mg/dL [facility] MILLENNIUM Comment:Diabetes: >=200 mg/d L plus symptoms Blood Urea Nitrogen 9 8 - 18 mg/dL CERNER MILLENNIUM Creatinine 0.84 0.70 - 1.20 mg/dL [facility]ERN[facility] MILLENNIUM Comment: Please note that the pediatric reference intervals supplied above were not validated at [facility]. Results from pediatric patients should be interpreted in conjunction to the patient's age, height and muscle mass. Sodium 140 135 - 145 mmol/L CERNER MILLENNIUM Potassium 3.9 3.5 - 5.0 mmol/L [facility] MILLENNIUM Comment: Please note: ??Patients with WBC >100,000 may have falsely elevated Potassium levels. ??For accurate Potassium quantification in these patients send serum separator tube (gold top) for subsequent determinations. ??Contact the Clinical Chemistry Laboratory if there are any questions. Chloride 102 98 - 107 mmol/L CERNER MILLENNIUM Carbon Dioxide 29 22 - 31 mmol/L CERNER MILLENNIUM Anion Gap 9 5 - 15 mmol/L CERNER MILLENNIUM Calcium 9.1 8.5 - 10.5 mg/dL CERNER MILLENNIUM Protein, Total 7.3 6.4 - 8.3 gm/dL CERNER MILLENNIUM Albumin 4.2 3.2 - 5.2 gm/dL CERNER MILLENNIUM Aspartate Aminotransferase 28 0 - 30 unit/L CERNER MILLENNIUM Alanine Aminotransferase 23 0 - 30 unit/L CERNER MILLENNIUM Alkaline Phosphatase 100 40 - 104 unit/L CERNER MILLENNIUM Bilirubin, Total 0.5 0.2 - 1.3 mg/dL CERNER MILLENNIUM Bilirubin, [...] internet browser. http://www.nkdep.nih.gov/lab-evaluation.shtml http://www.kidney.org/professionals/ Blood specimen (specimen) 08/15/2013 11:53 AM EDT 08/15/2013 12:00 PM EDT Narrative Resulting Agency Comment Spec In Lab Juventino Esteban MD CHEMISTRY ORDERABLE S CERNER MILLENNIUM * (ABNORMAL) CBC (with Diff) (08/15/2013 11:53 AM EDT) White Blood Cell 4.7 4.0 - 10.0 x10(3)/mcL CERNER MILLENNIUM Red Blood Cell 4.92 3.93 - 5.22 x10(6)/mcL CERNER MILLENNIUM Hemoglobin 14.4 11.2 - 15.7 gm/dL CERNER MILLENNIUM Hematocrit 43.5 34.0 - 45.0 % CERNER MILLENNIUM Mean Cell Volume 88.4 79.0 - 94.0 fL CERNER MILLENNIUM Mean Cell Hemoglobin 29.3 26.6 - 32.2 pg CERNER MILLENNIUM Mean Cell Hemoglobin Concentration 33.1 32.0 - 36.5 gm/dL CERNER MILLENNIUM Platelet 88(L) 145 - 370 x10(3)/mcL CERNER MILLENNIUM RDW Standard Deviation 45.9 35.0 - 46.0 fL CERNER MILLENNIUM RDW coefficient of variation 14.2 10.9 - 14.4 % CERNER MILLENNIUM Mean Platelet Volume 10.4 9.0 - 12.0 fL CERNER MILLENNIUM Blood specimen (specimen) 08/15/2013 11:53 AM EDT 08/15/2013 12:00 PM EDT Narrative Resulting Agency Comment Spec In Lab Juventino Esteban MD HEMATOLOGY ORDERABL ES [facility] documented in this encounter Visit Diagnoses Diagnosis Cirrhosis of liver- Primary Cirrhosis of liver without mention of alcohol Cirrhosis of liver Cirrhosis of liver without mention of alcohol documented in this encounter Care Teams Accounting Administrator Relationship Specialty Start Date End Date Emigdio Centeno MD [address] [place] [address] PCP - General 03/27/13 07/08/16 documented as of this encounter
--- OUTSIDE RECORDS SUMMARY | 2024-11-22 17:36 | XMS_ITS | Encounter Summary ---
Author Organization [facility] [address] [place] [address] Care Team Providers Care Manufacturing Mechanic Name Role Phone Emigdio Centeno MD Primary Care Provider [phone] Reason for Visit * Reason Onset Date Comments Medical Care Coordination 04/24/2013 lab Encounter Details Date Type Department Care Team (Late st Contact Info) Description 04/24/2013 [facility] [place] [phone] Zully Martinez I RN Medical Care Coordination (lab) Social History Tobacco Use Types Packs/Day Years [...] Telephone Encounter - Zully Martinez RN - 04/24/2013 2:09 PM EDT Spoke with patient who reports fatigue and bruising es presses concern about low plat ct (86). Explained to patient that BMBx showed no disease and plat are rising. Patient aware . Spoke with Dr Franco. Patient requesting appointment with Bri Simmons Wash Oil Pump Operator Helper documented in this encounter Plan of Treatment Upcoming Encounters Date Type Department Care Team (Late st Contact Info) Description 11/29/2024 1:30 PM EST Appointment XRay at [address] [place] [phone] Laurent Cabrera MD [facility] [place] [address] 11/29/2024 2:20 PM EST Office [place] [address] Laurent Cabrera MD [facility] [place] [address] documented as of this encounter Visit Diagnoses Not on filedocumented in this encounter Care Teams Manufacturing Mechanic Relationship Specialty Start Date End Date Emigdio Centeno MD [address] [place] [address] PCP - General 03/27/13 07/08/16 documented as of this encounter
--- OUTSIDE RECORDS SUMMARY | 2024-11-22 17:36 | XMS_ITS | Encounter Summary ---
Author Organization [facility] Address [facility] [place] [address] [place] [address] Care Team Providers Care Mapping Pilot Name Role Phone Emigdio Centeno MD Primary Care Provider [phone] Encounter Details Date Type Department Care Team (Latest Contact Info) Description 06/06/2013 9:16 AM EDT - 06/06/2013 3:57 PM EDT Hospital [place] [address] Ijeoma Smith MD [facility] [address] Emigdio Reeves MD [facility] [place] [address] Juventino Esteban MD [facility] [place] [address] Discharge Disposition: Home Social History Tobacco Use [...] encounter Discharge Instructions * Discharge Instructions* Janette Cruz, KENN - 06/06/2013 1:01 PM EDT Medications You [...] you need to be checked. Tuesday-Tuesday Clinic [phone] 8a-5p Same Day Endo [phone] 7a-8p Otherwise contact [phone] and ask to speak to the cargo trimmer student education specialist Follow up care is a brown part of your treatment and safety. Be sure to make and go to all appointments, and call your doctor if you are having problems. Discharge instructions reviewed with patient who expresses understanding Tuesday-Tuesday Clinic [phone] 8a-5p Same Day Endo [phone] 7a-8p Otherwise contact [phone] and ask to speak to the cargo trimmer student education specialist Follow-up care is a brown part of [...] 11/29/2024 1:30 PM EST Appointment XRay at [address] [place] [address] Laurent Cabrera MD [facility] [place] [address] 11/29/2024 2:20 PM EST Office [place] [address] Laurent Cabrera MD [facility] [place] [address] documented as of this encounter Procedures Procedure [...] UPPER GI ENDOSCOPY (06/06/2013 10:35 AM EDT) UPPER GI ENDOSCOPY [facility] Endoscopy ___ Patient Name: [facility] Yun ? Procedure Date: 06/06/2013 10:35 AM ? N: [id number] ? Date of : 1960 ? Age: 52 ? Order #: [id number] ? ___ Procedure: ? Upper GI endoscopy [...] Procedure Code(s): ?? --- Professional --- ? 77337, Upper gastrointestinal ? endoscopy including esophagus, ? stomach, and either the duodenum ? and/or jejunum as appropriate; ? diagnostic, with or without ? collection of specimen(s) by brushing ? or washing (separate procedure) CPT (R) 2012 [employer] [place] [employer]. All Rights Reserved. The codes documented in this report are preliminary and upon water pumping station engineer review may be revised to meet current compliance requirements. __ Juventino Esteban MD 06/06/2013 10:57 AM Number of Addenda: 0 Note Initiated On: 06/06/2013 10:35 AM PROVATION 06/06/2013 10:3 5 AM EDT Emigdio Centeno MD GENERAL SURGICAL ORD ERABLES PROVATION * COLONOSCOPY (06/06/2013 10:34 AM EDT) COLONOSCOPY [facility] Endoscopy Patient Name: Phyliss Yun ? Procedure Date: 06/06/2013 10:34 AM ? N: [id number] ? Date of : 1960 ? Age: 52 ? Order #: [id number] ? Procedure: ? Colonoscopy Indications: ? Screening [...] AM PROVATION 06/06/2013 10:3 4 AM EDT mEigdio Centeno MD GENERAL SURGICAL ORD ERABLES PROVATION [...] RN) documented in this encounter Care Teams Mapping Pilot Relationship Specialty Start Date End Date Emigdio Centeno MD [address] [place] [address] PCP - General 03/27/13 07/08/16 documented as of this encounter
--- OUTSIDE RECORDS SUMMARY | 2024-11-22 17:36 | XMS_ITS | Encounter Summary ---
Author Organization [facility] [address] [place] [address] Care Team Providers Care Semiconductor Wafers Etch Operator Name Role Phone Emigdio Centeno MD Primary Care Provider [phone] Reason for Visit * Reason Comments Follow-up Encounter Details Date Type Department Care Team (Late st Contact Info) Description 04/30/2013 11:15 AM EDT Follow-Up Hematology [place] [phone] Juliet Simmons APRN [facility] DR [place] [address] Iron deficiency (Primary Dx); Pancytopenia Discharge Disposition: Home Social History Tobacco [...] Sign Reading Time Taken Comments Blood Pressure 119/53 04/30/2013 11:35 AM EDT Pulse 65 04/30/2013 11:35 AM EDT Temperature 36.8 ??C (98.2 ??F) 04/30/2013 11:35 AM E DT Respiratory Rate 17 04/30/2013 11:35 AM EDT Oxygen Saturation 98% 04/30/2013 11:35 AM EDT Inhaled Oxygen Concentration - - Weight 106.1 kg (234 lb) 04/30/2013 11:35 AM EDT Height 162.7 cm (5' 4.06) 04/30/2013 11:35 AM E DT Body Mass Index 40.1 04/30/2013 11:35 AM EDT documented in this encounter Progress Notes * Juliet Simmons, DATA WAREHOUSING ARCHITECT - 04/30/2013 12:16 PM EDT HEMATOLOGY/BMT CONSULTATION VISIT NOTE Patient Active Problem List Diagnoses Code ??? Hypothyroidism 244.9 ??? Depression 311 ??? Chronic viral hepatitis C 070.54 ??? Current every day smoker 305.1 ??? S/P hernia repair V45.89 ??? Pancytopenia 284.19 HISTORY OF PRESENT ILLNESS Tara called requesting an appointment to discuss concerns about her blood counts and her bone marrow biopsy results. Dr. Zeng had spoken with Tara re: marrow results and plan for follow up but she states she continues to be anxious about her health and the need for reassurance. Since she was last seen, Tara states her health has been stable. Slept a lot over the past weekend due to theweather. Verbalizes concerns regarding Vitamin D level (takes 50,000u/week) with recent level showing she remains low. Tara is also concerned about iron intake. She takes 3 tables of iron daily but states she has not had her iron levels tested since initiation in [place]. Continues to walk routinely with some weight loss. Remainder of ros neg. . New prescription medications - None New OTC products - none [facility] in [place], [place] until they return to [place] in the winter. Live full-time in [facility]. REVIEW OF SYSTEMS Constitutional --Energy level: good --Pain: resolved bone marrow pain --Fevers/chills/sweats: No --Unexpected weight loss or gain: as above [...] Immune System --Recent infections: No Hematology/Lymph --Bruising/bleeding/melena: Denies --Enlarged nodes or other masses: No Skin --Rashes or petechiae: occasional bruising Other ROS: All negative PROBLEM LIST Patient Active Problem List Diagnoses Date Noted ??? Pancytopenia 03/30/2013 ??? Hypothyroidism 03/29/2013 ??? Depression 03/29/2013 ??? Chronic viral hepatitis C 03/29/2013 ??? Current every day smoker 03/29/2013 ??? S/P hernia repair 03/29/2013 Surgeries --S/p 11 knee surgeries for arthritis --Ventral hernia repaid --s/p hysterectomy and oopherectomy --cholecystectomy --Alvin wrap surgery --T&A --Toe surgery MEDICATIONS Prior to Admission medications Medication Sig Start Date End Date Taking? Authorizing Provider escitalopram (LEXAPRO) 20 mg tablet Take 20 mg by mouth daily. Yes Sirena Miller MD levothyroxine (SYNTHROID) 25 mcg tablet Take 0.025 mcg by mouth daily. Yes Sirena Miller MD pantoprazole (PROTONIX) 40 mg tablet Take 40 mg by mouth daily. Yes Sirena Miller MD DOCUSATE SODIUM (COLACE ORAL) Take by mouth daily. 1-2 tab daily Yes Sirena Miller MD FERROUS SULFATE, DRIED (IRON, DRIED, ORAL) Take 65 mg by mouth daily. Yes Sirena Miller MD OXYcodone 10 mg Tab Take 10 mg by mouth daily. Yes Sirena Miller MD ALPRAZolam (XANAX) 0.5 mg tablet Take 0.5 mg by mouth nightly. Yes Sirena Miller MD ergocalciferol (ERGOCALCIFEROL) 50,000 unit capsule Take 50,000 Units by mouth once a week. Yes Sirena Miller MD ALLERGIES/ADR Allergies Allergen Reactions ??? Sulfa (Sulfonamide Antibiotics) Anaphylaxis, Itching and Rash ??? Cis Free Text Allergy KETORALAC. ??? Cis Free Text Allergy METOCLOPRAMIDE. ??? Codeine ??? Ketorolac Tromethamine ??? Morphine Abd. Pain, difficulty breathing ??? Prochlorperazine ??? Tylenol (Acetaminophen) Liver issues SOCIAL HISTORY History Substance Use Topics ??? Smoking status: Current Everyday Smoker -- 0.5 packs/day ??? Smokeless tobacco: Not on file ??? Alcohol Use: Not on file ETOH - None for many years Tobacco - confirmed above PHYSICAL EXAM VITAL SIGNS: BP 119/53 Pulse 65 Temp(Src) 36.8 ??C (98.2 ??F) (Oral) Resp 17 Ht 162.7 cm (5' 4.06) Wt 106.142 kg (234 lb) BMI 40.10 kg/m2 SpO2 98% GENERAL: Bone marrow biopsy site well-healed. LABORATORY Iron studies pending RADIOLOGY - None ASSESSMENT & PLANS 52 year old female who presents at her request for overall discussion of her health and plans for follow up. We discussed the fact that we will plan to see her in follow up in about 5 mos to assess blood counts. Will check iron studies today to make sure she is taking an appropriate amount of iron.Will call her tomorrow w/ results and plan. Otherwise, no further indication for hematology follow up at this time. Does have a binding bench worker in [place] who she will connect with when she returns for the winter. CT scan today and follow up with GI scheduled. TOTAL TIME OF VISIT: 20 minutes TIME SPENT ON COUNSELING AND COORDINATION OF CARE: 20 Juliet Simmons APRN Section of Hematology/Oncology [facility] PCP: EMIGDIO CENTENO MD documented in this encounter Plan of Treatment Upcoming Encounters Date Type Department Care Team (Late st Contact Info) Description 11/29/2024 1:30 PM EST Appointment XRay at [address] [place] [address] Laurent Cabrera MD [facility] [place] [address] 11/29/2024 2:20 PM EST Office Visit Orthopaedics at [facility] [place] [phone] Laurent Cabrera MD [facility] [place] [address] documented as of this encounter Results * (ABNORMAL) Iron and TIBC (04/30/2013 12:25 PM EDT) Iron 48 30 - 150 mcg/dL CERNER MILLENNIUM TIBC 342 250 - 450 mcg/dL CERNER MILLENNIUM Iron Saturation 14(L) 20 - 50 % CERN ER MILLENNIUM Blood specimen (specimen) 04/30/2013 12:25 PM EDT 04/30/2013 12:41 PM EDT Narrative Resulting Agency Comment Spec In Lab Dom Zeng MD CHEMISTRY ORDERA BLES Performing Organization Address City/[facility]/ZIP Co de Phone Number [facility] VANCEENNIUM * Ferritin (04/30/2013 12:25 PM EDT) Ferritin 61 30 - 400 ng/mL [facility] Comment: Pediatric reference ranges not verified at [facility], interpret with caution. Reference ranges for females greater than 50 years of age approach values for men, i.e., 30-400 ng/mL. Blood specimen (specimen) 04/30/2013 12:25 PM EDT 04/30/2013 12:41 PM EDT Narrative Resulting Agency Comment Spec In Lab Dom Zeng MD CHEMISTRY ORDERA BLES Performing Organization Address [facility] Co de Phone Number [facility] * (ABNORMAL) CBC (with Diff) (04/30/2013 12:25 PM EDT) Pathologist [facility] White Blood Cell 3.4(L) 4.0 - 10.0 x10(3)/mc L CERNER MILLENNIUM Red Blood Cell 4.61 3.93 - 5.22 x10(6)/mc L CERNER MILLENNIUM Hemoglobin 12.8 11.2 - 15.7 gm/dL CERNER MILLENNIUM Hematocrit 40.0 34.0 - 45.0 % CERNER MILLENNIUM Mean Cell Volume 86.8 79.0 - 94.0 fL CERNER MILLENNIUM Mean Cell Hemoglobin 27.8 26.6 - 32.2 pg CERNER MILLENNIUM Mean Cell Hemoglobin Concentration 32.0 32.0 - 36.5 gm/dL CERNER MILLENNIUM Platelet 80(L) 145 - 370 x10(3)/mc L KEVON CUEVASIUM RDW Standard Deviation 47.8(H) 35.0 - 46.0 fL KEVON CUEVASIUM RDW coefficient of variation 15.0(H) 10.9 - 14.4 % KEVON CUEVASIUM Mean Platelet Volume 10.4 9.0 - 12.0 fL KEVON ARREOLA Blood specimen (specimen) 04/30/2013 12:25 PM EDT 04/30/2013 12:41 PM EDT Narrative Resulting Agency Comment Spec In Lab Dom Zeng MD HEMATOLOGY ORDER YANN KEVON ARREOLA documented in this encounter Visit Diagnoses Diagnosis Iron deficiency- Primary Iron deficiency anemia, unspecified Pancytopenia Other pancytopenia documented in this encounter Care Teams Semiconductor Wafers Etch Operator Relationship Specialty Start Date End Date Emigdio Centeno MD [address] [place] [address] PCP - General 03/27/13 07/08/16 documented as of this encounter
--- OUTSIDE RECORDS SUMMARY | 2024-11-22 17:36 | XMS_ITS | Encounter Summary ---
Author Organization Counts Include [facility] Address [facility] [address] [place] [address] Care Team Providers Care Highway Commissioner Name Role Phone Emigdio Centeno MD Primary Care Provider [phone] Reason for Referral * Consultation (Routine) - Closed Specialty Diagnoses / Procedures Referred By Serene huitron Referred To Contact Gastroenterology Diagnoses Cirrhosis Steven Weems MD [facility] [place] [address] [facility] [address] [place] [address] Referral ID Status Reason Start Date Expiration Date V isits Requested Visits Authorized [id number] Closed Assume Subset of Care 04/30/2013 10/27/2013 1 1 Reason for Visit * Reason Comments Follow-up Encounter Details Date Type Department Care Team (Late st Contact Info) Description 04/30/2013 10:30 AM EDT Follow-[place] [phone] CLINIC, Steven Mora MD [facility] [place] [address] Umbilical hernia (Primary Dx); Cirrhosis Discharge Disposition: Home Social History Tobacco Use [...] - Inhaled Oxygen Concentration - - Weight 106.5 kg (234 lb 12.6 oz) 2012 10:49 AM EDT Height - - Body Mass Index 42.94 04/09/2013 10:51 AM EDT documented in this encounter Progress Notes * Steven Weems MD - 04/30/2013 12:38 PM EDT Ms. Yun returns today to follow-up on the results of a recent CT scan. She had been having bilateral lower abdominal pain upon my last office evaluation and was concerned about possibility of a lower abdominal hernia present. Since that office visit, she has had recurrent right upper quadrant discomfort at site of recent laparoscopic incisional hernia repair from her previous open cholecystectomy worrying to her for recurrent hernia. Her recent evaluation of thrombocytopenia with BM Biopsy were negative for hematologic malignancy. 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 On examination, Wt 106.5 kg (234 lb 12.6 oz) Abdomen is soft, obese, no recurrent subcostal incisions felt, small reducible umbilical hernia present. CT scan confirms intact laparoscopic hernia repair though some mesh retraction, no lower abdominal hernia, +small umbilical hernia present. Assessment/Plan: Ms. Yun is a 52 year old female with some degree of right upper quadrant discomfort and intermittent lower abdominal discomfort arising in the setting of cirrhosis, hypersplenism and thrombocytopenia. As I explained to her today, I believe she would benefit from establishing carewith GI/hepatology to evaluate and ensure complete optimization of liver function/treatment. Should she wish after that evaluation to re-visit umbilical hernia repair in future, I would be happy to see her back in future. documented in this encounter Plan of Treatment Upcoming Encounters Date Type Department Care Team (Late st Contact Info) Description 11/29/2024 1:30 PM EST Appointment XRay at [address] [place] [address] Laurent Cabrera MD [facility] [place] [address] 11/29/2024 2:20 PM EST Office [place] [address] Laurent Cabrera MD [facility] [place] [address] Scheduled Referrals Name Type Priority Associated Diagnoses Order Schedule Referral to Gastroenterology Outpatient Referral Routine Cirrhosis Ordered: 04/30/2013 documented as of this encounter Visit Diagnoses Diagnosis Umbilical hernia- Primary Umbilical hernia without mention of obstruction or gangrene Cirrhosis Cirrhosis of liver without mention of alcohol documented in this encounter Care Teams Highway Commissioner Relationship Specialty Start Date End Date Emigdio Centeno MD [address] [place] [address] PCP - General 03/27/13 07/08/16 documented as of this encounter
--- OUTSIDE RECORDS SUMMARY | 2024-11-22 17:36 | XMS_ITS | Encounter Summary ---
Author Organization [facility] Address [facility] [address] [place] [address] Care Team Providers Care Clubhouse Attendant Name Role Phone Emigdio Centeno MD Primary Care Provider [phone] Reason for Visit * Reason Comments Establish Care Encounter Details Date Type Department Care Team (Late st Contact Info) Description 04/09/2013 11:00 AM EDT Office [place] [address] Steven Weems MD [facility] [place] [address] Abdominal pain (Primary Dx) Discharge Disposition: Home Social History [...] Sign Reading Time Taken Comments Blood Pressure 103/56 04/09/2013 10:51 AM EDT Pulse 75 04/09/2013 10:51 AM EDT Temperature 37.1 ??C (98.8 ??F) 04/09/2013 1 0:51 AM EDT Respiratory Rate - - Oxygen Saturation 96% 04/09/2013 10: 51 AM EDT Inhaled Oxygen Concentration - - Weight 109.4 kg (241 lb 3.2 oz) 013 10:51 AM EDT Height 157.5 cm (5' 2) 04/09/2013 10:5 1 AM EDT Body Mass Index 44.12 04/09/2013 10:51 AM EDT documented in this encounter Progress Notes * Steven Weems MD - 04/13/2013 3:52 PM EDT Tara Yun is a 52 y.o. female who presents to my clinic today with a concern about possible recurrent hernia. She states that she has been having right more than left lower quadrant pain for several weeks now with the sensation of things intermittently balling up. She states this can occur with bending over but also even when laying in bed relaxing in the evening. She has been moving her bowels regularly and denies any nausea/vomiting, no fevers/chills. She underwent a laparoscopic incisional hernia repair of an open cholecystectomy incisional hernia just this December and doesn't think this pain is postoperative in nature. She does note requiring platelet transfusions twice around time of that surgery for low platelet counts, nevertheless still developing massive ecchymosis. She was seen by her PCP who is concerned about the possibility of a recurrent abdominal wall hernia. Sheis also undergoing a bone marrow biopsy today as she undergoes a workup for her low blood cell count s. Past Medical History Abdominal Wall Hernia, recently repaired 12/2012 Anxiety Leukopenia Thrombocytopenia Cirrhosis Mediastinal Adenopathy Back Pain Chronic Hepatitis C GERD Past Surgical History Procedure Date ??? Bone marrow aspiration w/bx through same incision/site 04/09/2013 ([facility]) BONE MARROW ASP PERFORMED W/BX THRU BX INCISION performed by Dom Zeng MD at [facility] ??? Bone marrow bx, needle/trocar 04/09/2013 ([facility]) BONE MARROW,BIOPSY performed by Dom Zeng MD at [facility] Gynecologic laparotomy 1984 Left oopharectomy 1986 Hysterectomy 1987 Appendectomy Cholecystectomy 11 Knee Surgeries culminating in bilateral TKA Current Outpatient Prescriptions on File Prior to Visit Medication Sig Dispense Refill ??? escitalopram (LEXAPRO) 20 mg tablet Take 20 mg by mouth daily. ??? levothyroxine (SYNTHROID) 25 mcg tablet Take 0.025 mcg by mouth daily. ??? pantoprazole (PROTONIX) 40 mg tablet Take 40 mg by mouth daily. ??? DOCUSATE SODIUM (COLACE ORAL) Take by mouth daily. 1-2 tab daily ??? FERROUS SULFATE, DRIED (IRON, DRIED, ORAL) Take 65 mg by mouth daily. ??? OXYcodone 10 mg Tab Take 10 mg by mouth daily. ??? ALPRAZolam (XANAX) 0.5 mg tablet Take 0.5 mg by mouth nightly. ??? ergocalciferol (ERGOCALCIFEROL) 50,000 unit capsule Take 50,000 Units by mouth once a week. Allergies Allergen Reactions ??? Sulfa (Sulfonamide Antibiotics) Anaphylaxis, Itching and Rash ??? Cis Free Text Allergy KETORALAC. ??? Cis Free Text Allergy METOCLOPRAMIDE. ??? Codeine ??? Ketorolac Tromethamine ??? Morphine Abd. Pain, difficulty breathing ??? Prochlorperazine ??? Tylenol (Acetaminophen) Liver issues History Substance Use Topics ??? Smoking status: Current Everyday Smoker -- 0.5 packs/day ??? Smokeless tobacco: Not on file ??? Alcohol Use: No Disabled secondary to numerous knee surgeries and lower back disc disease General ROS: Pertinent items are noted in HPI. On physical examination today, BP 103/56 Pulse 75 Temp(Src) 37.1 ??C (98.8 ??F) (Oral) Ht 157.5 cm (5' 2) Wt 109.408 kg (241 lb 3.2 oz) BMI 44.12 kg/m2 SpO2 96% Body mass index is 44.12 kg/(m^2). General: Alert, no acute distress. HEENT: Sclera clear, anicteric, Oropharynx clear, no lesions and Trachea midline Chest: Normal chest wall and respirations. Clear to auscultation. Cardiac: S1 and S2 normal, regular rate and rhythm Abdominal: Obese, soft, mild tenderness along the right lateral aspect of previous Pfannenstiel incision without hernia appreciable on valsalva and cough. Inguinal: Negative for hernia Rectal: deferred Ancillary Data: N/A Assessment and Plan: Tara Yun is a 52 y.o. female. with multiple chronic medical comorbid conditions including a thrombocytopenia with workup ongoing and now lower abdominal pain reminiscent of her discomfort associated with her cholecystectomy incisional hernia, though no bulge appreciated on her on self- evaluation. I cannot feel a hernia today in clinic but given her body habitus and recent laparoscopic surgery in [place] 12/2012, I believe a CT scan to better delineate her abdominal wall anatomy is appropriate. Further evaluations and plans will be predicated on the results of this upcoming CT scan, informed by her BM Biopsy results. She agrees with this plan. documented in this encounter Plan of Treatment Upcoming Encounters Date Type Department Care Team (Late st Contact Info) Description 11/29/2024 1:30 PM EST Appointment XRay at [address] [place] [address] Laurent Cabrera MD [facility] [place] [address] 11/29/2024 2:20 PM EST Office Visit Orthopaedics at [facility] [place] [address] Laurent Cabrera MD [facility] [place] [address] documented as of this encounter Results * CT abdomen & [...] recent surgical intervention. ?? Procedure Note Brenda Gallagher MD - 04/30/[address] Abdomen / [...] Abdominal pain- Primary Abdominal pain, unspecified site Abdominal pain Abdominal pain, unspecified site documented in this encounter Care Teams Clubhouse Attendant Relationship Specialty Start Date End Date Emigdio Centeno MD [address] [facility] [address] [place] [address] PCP - General 03/27/13 07/08/16 documented as of this encounter
--- OUTSIDE RECORDS SUMMARY | 2024-11-22 17:36 | XMS_ITS | Encounter Summary ---
Author Organization [facility] [place] [address] Care Team Providers Care Elevator Examiner And Adjuster Name Role Phone Emigdio Centeno MD Primary Care Provider [phone] Encounter Details Date Type Department Care Team (Late st Contact Info) Description 04/09/2013 11:41 AM EDT - 04/09/2013 3:25 PM EDT Hospital Encounter [place] [phone] Nasra Zeng MD Discharge Disposition: Home Social History [...] Sign Reading Time Taken Comments Blood Pressure 110/68 04/09/2013 3:00 PM EDT Pulse 84 04/09/2013 3:00 PM EDT Temperature 36.3 ??C (97.3 ??F) 04/09/2013 12:17 PM E DT Respiratory Rate 18 04/09/2013 3:00 PM EDT Oxygen Saturation 98% 04/09/2013 3:23 PM EDT Inhaled Oxygen Concentration - - Weight - - Height - - Body Mass Index - - documented in this encounter Discharge Instructions * Discharge Instructions* Brenda Dubois RN - 04/09/2013 12:27 PM EDT OUTPATIENT SURGERY POST-OPERATIVE INSTRUCTIONS BONE MARROW BIOPSY SITE 1. You have had a bone marrow aspiration and or/biopsy, which is like having an operation with a tiny, deep incision. 2. Do Not do strenuous work today, like jogging, tennis, golf, or yard work, etc., as it may cause your bone marrow site to bleed. 3. To avoid infection, leave the Tegaderm clear plastic dressing on the site for three days. You may shower, bathe, or swim as you wish, provided the Tegaderm dressing remains intact, and all sides of the dressing are firmly adhered to the skin. 4. It is not unusual for the [...] a firm surface, place the towel directly under the puncture site to apply pressure, and rest there for one half hour. Direct, FIRM thumb pressure applied to the site for 10 minutes works well as an alternative method. Leave the dressing on. 6. In the unlikely event that a portion or the entire dressing should come off, you may replace it with a conventional cloth band aid. However, you will no longer be able to get the site wet until three days have passes, as a conventional band aid is NOT WATERPROOF. 7. Most people do not experience much discomfort after this procedure, but if you do, you can ask your physician with to take. AVOID ASPIRIN PRODUCTS as these interfere with clotting. 8. After three days, remove your dressing and leave it off, so the air can get to the site to finish the healing process. 9. NOTIFY YOUR DOCTOR FOR: a. Redness b. Heat c. Swelling d. Drainage e. Increased pain f. Foul odor (which may not be apparent through the dressing) 10. If you are having problems or have additional concerns or questions please call: Hematology Clinic 8am - 5pm After 5 PM call [phone] for the doctor pump station operator [address] ??? [place] [address] ??? [phone] ??? [email or web address] [employer] ??? [facility] ??? [facility] ??? [facility] documented in this encounter Medications at Time of Discharge Medication Sig Dispensed Refills Start Date End Date escitalopram (LEXAPRO) 20 mg tabletIndications:Pancyt openia Take 20 mg by mouth daily. Reported on 11/10/2016 11/10/2016 levothyroxine (SYNTHROID) 25 mcg tabletIndications:Pancyt openia Take 25 mcg by mouth daily. 11/23/2016 pantoprazole (PROTONIX) 40 mg tabletIndications:Pancyt openia Take 20 mg by mouth daily. 11/23/2016 FERROUS SULFATE, DRIED (IRON, DRIED, ORAL)Indications:Pancyto penia Take 65 mg by mouth 3 times daily. 04/18/2019 OXYcodone 10 mg TabIndications:Pancytope jon Take 10 mg by mouth daily. 04/30/2013 ALPRAZolam (XANAX) 0.5 mg tabletIndications:Pancyt openia Take 0.5 mg by mouth nightly. 05/02/2013 ergocalciferol (ERGOCALCIFEROL) 50,000 unit capsuleIndications:Pancy topenia Take 50,000 Units by mouth once a week. 04/02/2014 documented as of this encounter Progress Notes * Brenda Dubois RN - 04/09/2013 3:24 PM EDT D/C instructions reinforced with pt. * Brenda Dubois RN - 04/09/2013 12:42 PM EDT D/C instructions given to and reviewed with pt and pt demonstrates good understanding of D/C plans and follow-up; all questions answered * Brenda Dubois RN - 04/09/2013 12:25 PM EDT Pre-procedure assessment for IVCS performed; no issues for IVCS; proceed as planned. documented in this encounter Procedure Notes * Juliet Simmons APRN - 04/09/2013 4:09 PM EDTProcedure(s): BONE MARROW ASP PERFORMED WITH BONE MARROW BX, TECH ONLY Pre-Procedure Diagnose(s): Pancytopenia BONE MARROW BIOPSY AND ASPIRATION PROCEDURE NOTE Bone Marrow Biopsy & Aspiration with Conscious Sedation - Unilateral Date/Time of Procedure: 04/09/13 1400 Proceduralist: Juliet Simmons APRN DIAGNOSIS: Pancytopenia Pre-Procedure: (x) Consent signed and on chart. (x) CBC drawn within 3 days. (x) Medications/Allergies/Problem List reviewed. (x) H & P complete: H&P on chart in last 30 days. Denies any changes in medical status. Prior to start of procedure the following is verified in a TIME OUT: (x) Patient identity (x) Planned procedure (x) Safety concerns IV ACCESS: Per sedation RN PAIN INTERVENTION: Per sedation RN Sterile Condition: Chlorohexidine/betadine was used to sterilize the area. Sterile drapes were usedto create a sterile field. Local Anesthesia: 1% Lidocaine PROCEDURE: A bone marrow biopsy and aspiration was performed on the left posterior iliac crest Tegaderm dressing placed and pressure applied to site(s) for 30 minutes following the procedure. Estimated Blood Loss: minimal Complications: Very difficult marrow. Patient did not do well with conscious sedation; difficult tosedate. Requesting further pain medication after procedure. None given as pt. Has received 200mcg Fentanyl. POST INTERVENTION CARE & PAIN ASSESSMENT: Per [facility] nurses. Follow-up: Written/Verbal instructions for site care given to patient per [facility] nurses. Follow-up with Physician as instructed. Daisha Simmons APRN documented in this encounter Miscellaneous Notes * Miscellaneous - Provider, Scanning - 04/09/2013 2:12 PM EDT documented in this encounter Plan of Treatment Upcoming Encounters Date Type Department Care Team (Late st Contact Info) Description 11/29/2024 1:30 PM EST Appointment XRay at [address] [place] [address] Laurent Cabrera MD [facility] ORTHOPAEDIC [place] [address] 11/29/2024 2:20 PM EST Office Visit Orthopaedics at [facility] [place] [phone] Laurent Cabrera MD [facility] [place] [address] documented as of this encounter Procedures Procedure Name Priority Date/Time Associated Diagnosis Comments ([facility] MSURG) BONE MARROW BIOPSY; DIAGNOSTIC Routine 04/10/2013 7:06 AM EDT CHROMO REPORT ACQUIRED Routine 3 4:04 PM EDT BONE MARROW FLOW CYTOMETRY REPORT Routine 04/09/2013 3:37 PM EDT BONE MARROW FINAL REPORT Routine 013 3:37 PM EDT BONE MARROW ADDENDUM REPORT Routine 04/09/2013 3:37 PM EDT IMMUNOPHENOTYPING FLOW CYTOMETRY (BLOOD) Routine 04/09/2013 2:30 PM EDT IRON STAIN, BONE MARROW Routine 04/09/20 13 2:30 PM EDT BONE MARROW PANEL ([facility]/APD) Routine 04/09/2013 2:30 PM EDT ([facility] MSURG) BONE MARROW BIOPSY; DIAGNOSTIC (WRVU 1.28) 04/09/2013 1:11 PM EDT pancytopenia ([facility] MSURG) BONE MARROW ASP PERFORMED W/BX THRU BX INCISION (WRVU 0.16) 04/09/2013 1:11 PM EDT pancytopenia DIFFERENTIAL, AUTOMATED Routine 04/09/20 13 12:24 PM EDT CBC (WITH DIFF) Routine 04/09/2013 12:24 PM EDT documented in this encounter Results * chromo report acquired (04/09/2013 4:04 PM EDT) Pathologist [facility] Cytogenetics Acquired Report Final Report [facility] Department of Pathology - Cytogenetics Laboratory [address] [place] [address] [id number] ---Clinical Information--- Indication for Study: Pancytopenia Specimen: ? Bone Marrow Accession: ?[id number] Collection Date/Time: 04/09/2013 14:30 Received Date/Time: ?? 04/09/2013 16:04 ---Preparation--- 24 and 48 hour short term cultures Banding Method: ??G-banding Banding Level: less than 350 bands ---Analysis--- Total Cultures Analyzed: ??2 Total Metaphase Cells Counted: ??20 Total Metaphase Cells Analyzed: ??20 Total Metaphase Cells Karyotyped: ??6 ---Karyotype--- 46,XX[20] ---Interpretation --- Karyotype characteristic of a normal female. 06.14.13 (Electronic Signature) Verified By: David Ph.D., Shyann Horn Director, Cytogenetics [facility] 04/09/2013 4:04 PM EDT Nasra Zeng MD HEMATOLOGY ORDER YANN [facility] * Bone Marrow Addendum Report (04/09/2013 3:37 PM EDT) [facility] Bone Marrow Addendum Report ? [facility] ? Provider: ?? NASRA ZENG Pt. Name: ?? YUN, TARA E ?H ? Acc #: ?[id number] ? Pt. ? Col Date: ?? 04/09/2013 ? /Sex: ?1960,(52 years),Female ? Rec Date: ?? 04/09/2013 ? LOC: ?[facility] ? ADDENDUM REPORT ? ---Addendum Discussion--- ? Immunostains for kappa and lambda light chains were performed after ? detection of a low level paraprotein. These stains revealed only scattered ? singly distributed plasma cells, with both kappa and lambda positive plasma ? cells present. There is no evidence of a clonal population. ? Immunohistochemistry Studies: ? Formalin-fixed, paraffin-embedded tissue sections are studied using the B- ? SA system technique with appropriate positive and negative controls. ??These ? IHC studies provide the pathologist with adjunctive diagnostic information. ? Antibody specificity has been verified by testing antibodies on a series of ? in-house tissues with known immunohistochemical performance ? characteristics. The clinical interpretation of any antibody positive ? staining or its absence is evaluated within the context of clinical ? presentation, morphology, histopathological criteria and other diagnostic ? tests. ? Block ?Antibody ? Result (Positive/Negative) ? A ?[place] ?Positive, subset plasma cells ? A ?Lambda ? Positive, subset plasma cells ? 04/17/13 ? NBL ? 04/17/13 Verified by: ? Espinoza Lakhani MD ? Hematopathologist ? (Electronic Signature) ? The attending pathologist whose signature appears on this report has ? reviewed all diagnostic slides and has edited the gross and/or ? microscopic portion of the report in rendering the final pathologic ? diagnosis. KEVON ARREOLA 04/09/2013 3:37 PM EDT Nasra Zeng MD PATHOLOGY/CYTOLO GY ORDERABLES [facility] * Bone Marrow Final Report (04/09/2013 3:37 PM EDT) Bone Marrow Final Report ? [facility] ? Provider: ?? NASRA ZENG Pt. Name: ?? TARA YUN ?H ? Acc #: ?[id number] ? Pt. ? Col Date: ?? 04/09/2013 ? /Sex: ?1960,(52 years),Female ? Rec Date: ?? 04/09/2013 ? LOC: ?[facility] ? HEMATOPATHOLOGY ? ---Clinical Information--- ? Specimen: ? Bone marrow aspirate and biopsy, Left ? Clinical Diagnosis: ? Progressive pancytopenia, chronic Hepatitis C ? Indication for Study: ?? Assess for etiology, MDS ? ---Peripheral Blood Findings--- ? The white cell count is 3170. ??The predominating cells are neutrophils. ? The ANC is 2110/microltiter. ??There is an absolute lymphopenia, ? 790/microliter. ??No anemia is evident (Hgb 12.1; MCV 86.5). ??Platelets ? appear decreased in number (86K). ??Neutrophils display normal nuclear ? segmentation and cytoplasmic granulations. ??There is no increase or ? prominence of large granular lymphocytes. ? ---Aspirate--- ? The marrow tissue is adequately sampled. ??Neoplastic cells are not ? identified. ??The myeloid:erythroid ratio is approximately 5:4. ??Normal ? numbers of megakaryocytes are present. ??The iron stained smear is ? aparticulate and inadequate for assessment of iron stores; no ringed ? sideroblasts are seen. ??Aspirate smears reveal trilineage maturation. ? There is no clear evidence of dysplasia or infiltrattive disease. ? ---Differential--- ? Neutrophils/bands 30%, Lymphocytes 8%, Monocytes 1%, Eosinophils 5%, ? Basophils 1%, Metamyelocytes 6%, Myelocytes 4%, Promyelocytes 2%, Blasts ? 2%, Erythroid precursors 41%, Plasma cells 0%. ? ---Biopsy and/or Clot Section--- ? The decalcified bone marrow is of normal cellularity (40-50%). ??The bony ? trabeculae appear normal for age. ??A neoplastic infiltrate is not seen. ? The myeloid:erythroid ratio appears to be approximately 2:1. ? Megakaryocytes appear normal in number. ??Sections revreal a normocellular ? marrow with trilineage maturation. There is no evidence of dysplasia or ? infiltrative disease. ? ---Diagnosis--- ? 1. Progressive pancytopenia, chronic Hep C infection, by history ? 2. Leukolymphopenia and thrombopenia, peripheral blood ? 3. Normocellular marrow with trilineage maturation, no clear evidence of ? dysplasia or infiltrative disease-see comment ? [facility] ? Provider: ?? NASRA ZENG Pt. Name: ?? YUN TARA E ?H ? Acc #: ?[id number] ? Pt. ? Col Date: ?? 04/09/2013 ? /Sex: ?1960,(52 years),Female ? Rec Date: ?? 04/09/2013 ? LOC: ?[facility] ? HEMATOPATHOLOGY ? 4. Iron stores not well characterized ? 04/11/13 ? NBL ? 04/11/13 Verified by: ? Espinoza Lakhani MD ? Hematopathologist ? (Electronic Signature) ? The attending pathologist whose signature appears on this report has ? reviewed all diagnostic slides and has edited the gross and/or ? microscopic portion of the report in rendering the final pathologic ? diagnosis. ? ---Comment--- ? Marrow has been submitted for cytogenetic evaluation. ??The etiology of the ? thrombopenia and anemia are not morphologically evident. ??Assessment of ? medications, viral load and for evidence of splenomegaly/hypersp lenism ? indicated. KEVON ARREOLA 04/09/2013 3:37 PM EDT Nasra Zeng MD PATHOLOGY/CYTOLO GY ORDERABLES [facility] * Bone Marrow Flow Cytometry Report (04/09/2013 3:37 PM EDT) Bone Marrow Flow Cytometry Report ? [facility] ? Provider: ?? NASRA ZENG Pt. Name: ?? TARA YUN E ?H ? Acc #: ?[id number] ? Pt. ? Col Date: ?? 04/09/2013 ? /Sex: ?1960,(52 years),Female ? Rec Date: ?? 04/09/2013 ? LOC: ?[facility] ? ANALYTICAL CELL PATHOLOGY ? ---Clinical Information--- ? Pancytopenia, Chronic Hep C disease, assess for increased myeloid ? precursors ? ---Preparation--- ? FCM#: [id number] ? [id number] ? ---Markers--- ?Cells for immunophenotypic analysis were derived from Bone Marrow. ??A ? CD34 backgate region, comprising approximately 2% of all cells was located ? on the CD45 vs side scatter plot and used for gated analysis. ? The following markers were assessed: CD13, CD14, CD16, CD34, CD45, CD64 and ? CD117. ? ---Interpretation--- ? There is a vague cellular cluster in the gated region. The majority of ? cells are CD13 positive myeloid precursors. CD34 and/or CD117 positive ? precursors represent less than 1% of all analyzed cells. ?DIAGNOSIS: NO EVIDENCE OF INCREASED MYELOID PRECURSOR POPULATION BY ? SCREENING FLOW ? CYTOMETRIC ANALYSIS-SEE COMMENT ? 04/10/13 ? ROBY ? 04/10/13 Verified by: ? LakhaniEspinoza gramajo MD ? Hematopathologist ? (Electronic Signature) ? ---Comment--- ?Flow analysis is an ancillary study. A definite diagnosis requires ? correlation with the morphologic features of this process and if necessary, ? correlation with other ancillary studies like immunohistochemistry , enzyme ? cytochemistry and/or cyto/molecular genetics. ?This test was developed and its performance characteristics determined ? by the Clinical Flow Cytometry Laboratory at [facility]. It has not been cleared or approved by the U.S. Food and Drug ? Administration. ??The FDA has determined that such clearance or approval is ? not necessary. ??This test is used for clinical purposes. ??It should not be ? regarded as investigational or ? [facility] ? Provider: ?? NASRA ZENG Pt. Name: ?? TARA YUN ?H ? Acc #: ?[id number] ? Pt. ? Col Date: ?? 04/09/2013 ? /Sex: ?1960,(52 years),Female ? Rec Date: ?? 04/09/2013 ? LOC: ?[facility] ? ANALYTICAL CELL PATHOLOGY ? for research. ??This laboratory is certified under the Clinical Laboratory ? Improvement Act of 1988 (CLIA) as qualified to perform high complexity ? clinical laboratory testing. [facility] 04/09/2013 3:37 PM EDT Nasra Zeng MD PATHOLOGY/CYTOLO GY ORDERABLES Performing Organization Address [facility] de Phone Number KEVON CUEVASIUM * Immunophenotyping Flow Cytometry (04/09/2013 2:30 PM EDT) Type of Specimen Bone Marrow [facility]ON VANCEKINGSLEYI[facility] Panel Requested Other [facility] Immunophenotyping Flow See Comment KEVON VANCEENNIUM Comment: When completed by the Pathologist, the Flow Cytometry Report ([id number]) will display under the Hematopathology Reports result section in eDH. Body fluid specimen (specimen) 04/09/2013 2:30 PM EDT 04/10/2013 7:26 AM EDT Narrative Resulting Agency Comment Spec In Lab Nasra Zeng MD HEMATOLOGY ORDER YANN Performing Organization Address [facility] de Phone Number KEVON CUEVASIUM * Iron Stain, Bone Marrow (04/09/2013 2:30 PM EDT) Bone Marrow Iron Stain See Comment KEVON VANCEENNIUM Comment:See Bone Marrow Repo rt [id number] under Hematopathology Reports. Bone marrow specimen (specimen) 04/09/2013 2:30 PM EDT 04/09/2013 3:26 PM EDT Narrative Resulting Agency Comment Spec In Lab Nasra Zeng MD HEMATOLOGY ORDER YANN Performing Organization Address [facility] de Phone Number KEVON CUEVASIUM * (ABNORMAL) Differential, Automated (04/09/2013 12:24 PM EDT) Neutrophil % 66.6 34.0 - 71.0 % KEVON MILLENNIUM Neutrophil Absolute 2.11 1.50 - 6.30 x10(3)/mc L CERNER MILLENNIUM Lymph % 24.9 19.0 - 53.0 % CERNER MILLENNIUM Lymphocytes Abs 0.8(L) 1.0 - 3.6 x10(3)/mc L CERNER MILLENNIUM Monocyte % 6.3 4.0 - 13.0 % CERNER MILLENNIUM Monocyte Abs 0.2 0.2 - 1.0 x10(3)/mc L CERNER MILLENNIUM Eos % 1.9 0.0 - 7.0 % CERNER MILLENNIUM Eosinophils Abs 0.1 0.0 - 0.5 x10(3)/mc L CERNER MILLENNIUM Basophil % 0.3 0.0 - 2.0 % CERNER MILLENNIUM Baso [...] x10(3)/mc L CERNER MILLENNIUM Blood specimen (specimen) 04/09/2013 12:24 PM EDT 04/09/2013 12:56 PM EDT Nasra Zeng MD HEMATOLOGY ORDER YANN CERNER VANCEENNIUM * (ABNORMAL) CBC (with Diff) (04/09/2013 12:24 PM EDT) White Blood Cell 3.2(L) 4.0 - 10.0 x10(3)/mc L CERNER MILLENNIUM Red Blood Cell 4.43 3.93 - 5.22 x10(6)/mc L CERNER MILLENNIUM Hemoglobin 12.1 11.2 - 15.7 gm/dL CERNER MILLENNIUM Hematocrit 38.3 34.0 - 45.0 % CERNER MILLENNIUM Mean Cell Volume 86.5 79.0 - 94.0 fL CERNER MILLENNIUM Mean Cell Hemoglobin 27.3 26.6 - 32.2 pg CERNER MILLENNIUM Mean Cell Hemoglobin Concentration 31.6(L) 32.0 - 36.5 gm/dL CERNER MILLENNIUM Platelet 86(L) 145 - 370 x10(3)/mc L [facility] RDW Standard Deviation 46.9(H) 35.0 - 46.0 fL [facility] RDW coefficient of variation 15.0(H) 10.9 - 14.4 % [facility] Mean Platelet Volume 10.0 9.0 - 12.0 fL KEVON CUEVASIUM Blood specimen (specimen) 04/09/2013 12:24 PM EDT 04/09/2013 12:56 PM EDT Narrative Resulting Agency Comment Spec In Lab Nasra Zeng MD HEMATOLOGY ORDER YANN [facility] documented in this encounter Visit Diagnoses Not on filedocumented in this encounter Administered Medications Inactive Administered Medications - up to 3 most recent administrations Medication Order MAR Action Action Date Dose Rate Site fentaNYL 50mcg/mL injection 25-100 mcg, Intravenous, EVERY 5 MIN PRN, Starting on Tue04/09/13 at 1201, Until Tue04/09/13 at 1850, Pain, Hold for respiratory rate less than 8 breaths per minute. (maximum dose 200 mcg) , Intra-Operative (Intra-Procedure), Routine Given 04/09/2013 2:15 PM EDT 25 mcg Given 04/09/2013 2:10 PM EDT 25 mcg Given 04/09/2013 1:55 PM EDT 25 mcg midazolam (VERSED) injection 0.5-2 mg 0.5-2 mg, Intravenous, EVERY 5 MIN PRN, Starting on Tue04/09/13 at 1201, Until Tue04/09/13 at 1850, Sleep, Anxiety, Hold for delirium/agitation. (maximum dose 5 mg), Intra-Operative (Intra-Procedure), Routine Given 04/09/2013 1:45 PM EDT 1 mg Given 04/09/2013 1:32 PM EDT 2 mg Given 04/09/2013 1:26 PM EDT 1 mg documented in this encounter Active and Recently Administered Medications Times are shown in EDT. PRN Medication Order 04/07/2013 04/08/2013 04/09/2013 fentaNYL 50mcg/mL injection (CANCELED) 25-100 mcg, Intravenous, EVERY 5 MIN PRN, Starting on Tue04/09/13 at 1201, Until Tue04/09/13 at 1850, Pain, Hold for respiratory rate less than 8 breaths per minute. (maximum dose 200 mcg) , Intra-Operative (Intra-Procedure), Routine 1300 (Given - Provid er: Brenda Dubois RN)1321 (Given - Provider: Brenad Dubois RN)1328 (Given - Provider: Brenda Dubois RN)1334 (Given - Provider: Brenda Dubois RN)1355 (Given - Provider: Brenda Dubois RN)1410 (Given - Provider: Brenda Dubois RN)1415 (Given - Provider: Brenda Dubois RN) midazolam (VERSED) injection 0.5-2 mg (CANCELED) 0.5-2 mg, Intravenous, EVERY 5 MIN PRN, Starting on Tue04/09/13 at 1201, Until Tue04/09/13 at 1850, Sleep, Anxiety, Hold for delirium/agitation. (maximum dose 5 mg), Intra-Operative (Intra-Procedure), Routine 1320 (Given - Provid er: Brenda Dubois RN)1326 (Given - Provider: Brenda Dubois RN)1332 (Given - Provider: Brenda Dubois RN)1345 (Given - Provider: Brenda Dubois RN) documented in this encounter Care Teams Elevator Examiner And Adjuster Relationship Specialty Start Date End Date Emigdio Centeno MD [address] [place] [address] PCP - General 03/27/13 07/08/16 documented as of this encounter
--- OUTSIDE RECORDS SUMMARY | 2024-11-22 17:36 | XMS_ITS | Encounter Summary ---
Author Organization [facility] [address] [place] [address] Care Team Providers Care Truck Cleaner Name Role Phone Emigdio Centeno MD Primary Care Provider [phone] Encounter Details Date Type Department Care Team (Late st Contact Info) Description 05/04/2013 Telephone [facility]ology at [facility] [place] [address] Sharon Mark APRN Social History Tobacco Use Types Packs/Day Years [...] Miscellaneous Notes * Telephone Encounter - Sharon Mark APRN - 05/04/2013 11:08 AM EDT Pt had called requesting lab results. I called pt back explaining that some of labs are still pending. The results that I do have are stable. She tells me that she started the Lactulose twice daily. She still has not had BM but is hearing rumbling in stomach. I have advised to increase to TID. She may then adjust the dose so she is having 2-4 soft BM daily. She verbalized understanding and agreement to the plan of care. documented in this encounter Plan of Treatment Upcoming Encounters Date Type Department Care Team (Late st Contact Info) Description 11/29/2024 1:30 PM EST Appointment XRay at [address] [place] [phone] Laurent Cabrera MD [facility] [place] [address] 11/29/2024 2:20 PM EST Office [place] [address] Laurent Cabrera MD [facility] [place] [address] documented as of this encounter Visit Diagnoses Not on filedocumented in this encounter Care Teams Truck Cleaner Relationship Specialty Start Date End Date Emigdio Centeno MD [address] [place] [address] PCP - General 03/27/13 07/08/16 documented as of this encounter
--- OUTSIDE RECORDS SUMMARY | 2024-11-22 17:36 | XMS_ITS | Encounter Summary ---
Author Organization [facility] [address] [place] [address] Care Team Providers Care Numerical Control Programmer Name Role Phone Emigdio Centeno MD Primary Care Provider [phone] Reason for Visit * Reason Comments Other Encounter Details Date Type Department Care Team (Late st Contact Info) Description 04/18/2013 Telephone Hematology [place] [address] Dom Zeng MD Social History Tobacco Use [...] encounter Miscellaneous Notes * Telephone Encounter - Dom Zeng MD - 04/18/2013 5:33 PM EDT I called Tara with the results of her recent BM Bx. See addendum to her consult note for details. Mahad Zeng MD documented in this encounter Plan of Treatment Upcoming Encounters Date Type Department Care Team (Late st Contact Info) Description 11/29/2024 1:30 PM EST Appointment XRay at [address] [place] [phone] Laurent Cabrera MD [facility] ORTHOPAEDIC [place] [address] 11/29/2024 2:20 PM EST Office [place] [address] Laurent Cabrera MD [facility] [place] [address] documented as of this encounter Visit Diagnoses Not on filedocumented in this encounter Care Teams Numerical Control Programmer Relationship Specialty Start Date End Date Emigdio Centeno MD [address] [place] [address] PCP - General 03/27/13 07/08/16 documented as of this encounter
--- OUTSIDE RECORDS SUMMARY | 2024-11-22 17:36 | XMS_ITS | Encounter Summary ---
Author Organization [facility] [place] [address] Care Team Providers Care Apparatus Cleaner Name Role Phone Emigdio Centeno MD Primary Care Provider [phone] Encounter Details Date Type Department Care Team (Late st Contact Info) Description 06/06/2013 10:39 AM EDT Anesthesia Event [place] [address] Chaparrita Mejía MD Anesthesia Record Procedure Summary Procedure Name Responsible Anesthesiologist Anesthesia Start Time Anesthesia Stop Time EGD, UPPER GI ENDOSCOPY (WRVU 2.09) (Trunk) Chaparrita Mejía MD 06/06/13 1039 06/06/13 1143 Events Date Time Event Comment 06/06/2013 0957 1038 AN Verify 1039 Start 1039 An Start Data 1043 An Induction 1043 Anesthesia Ready 1143 an stop data 1143 Stop Meds Name Total lidocaine IV 100 mg propofol 150 mg propofol INF 990.36 mg Glycopyrrolate 0.3 mg lactated ringers 0 mL * Agents Name O2 * Blood No blood administrations on file. Lines, Drains, and Airways Type Details Placement Removal Incision 04/09/13; 1330; hip; 07/19/22 (LDA cleanup utility RA#[id number]); 1715 (LDA cleanup utility RA#[id number]) 04/09/13 1330 by Brenda Dubois RN 07/19/22 1715 by Thiago Billings documented in this encounter Social History Tobacco [...] OR Notes * Anesthesia Postprocedure Evaluation - Chaparrita Mejía MD - 06/06/2013 1:30 PM EDT Patient: Tara Yun Procedure(s) Performed: Procedure(s): EGD, UPPER GI ENDOSCOPY COLONOSCOPY, DIAGNOSTIC Actual Anesthetic: general Patient location: PACU Post-op pain: Adequate analgesia Post-op nausea: no nausea or vomiting Last Vitals: Filed Vitals: 06/06/13 1148 BP: 113/68 Pulse: 84 Resp: 16 Post-op cardiovascular and respiratory status: is stable Level of consciousness: awake, alert and oriented Complications: no apparent complications and tolerated the procedure well Fluid Status: normal * Anesthesia Preprocedure Evaluation - Chaparrita Mejía MD - 06/06/2013 9:55 AM EDT Images from the original note were not included. Pre-Anesthesia Evaluation for: Tara Yun a 52 y.o. female. Procedure(s): EGD, UPPER GI ENDOSCOPY COLONOSCOPY, DIAGNOSTIC Patient Active Problem List Diagnoses ??? Cirrhosis of liver ??? Obesity ??? Hyperlipidemia ??? Pancytopenia ??? Hypothyroidism ??? Depression ??? Chronic viral hepatitis C ??? Current every day smoker ??? S/P hernia repair Past Medical History Diagnosis Date ??? Hypothyroid ??? GERD (gastroesophageal reflux disease) ??? Hepatitis C antibody test positive ??? Depression ??? Hyperlipidemia Past Surgical History Procedure Date ??? Bone marrow aspiration w/bx through same incision/site 04/09/2013 ([facility]) BONE MARROW ASP PERFORMED W/BX THRU BX INCISION performed by Dom Zeng MD at [facility] ??? Bone marrow bx, needle/trocar 04/09/2013 ([facility]) BONE MARROW,BIOPSY performed by Dom Zeng MD at [facility] ??? Ventral hernia repair 01/11/13 [place] ??? Appendectomy 11/16/96 ??? Dental surgery 03/25/1989 ??? Knee surgery x 11 ??? Total knee arthroplasty 2006 left ??? Total knee arthroplasty 2005 right ??? Toe surgery 2006 right ??? Hysterectomy 1987 ??? Ovary removal 1988 ??? Cholecystectomy 1992 ??? Hiatal hernia repair 1992 ??? Gastric fundoplication 1992 ??? Tonsillectomy 1960 History Substance Use Topics ??? Smoking status: Current Everyday Smoker -- 0.5 packs/day for 30 years Types: Cigarettes ??? Smokeless tobacco: Not on file Comment: Working on cutting down. ??? Alcohol Use: No No hx of heavy ETOH. 1 drink 2-3 times a year. Last ETOH x 1 month ago. History Drug Use No Tried snorting drugs once in 2010. No hx of IV drug use. Allergies Allergen Reactions ??? Sulfa (Sulfonamide Antibiotics) Anaphylaxis, Itching and Rash ??? Cis Free Text Allergy KETORALAC. ??? Cis Free Text Allergy METOCLOPRAMIDE. ??? Codeine ??? Ketorolac Tromethamine ??? Morphine Abd. Pain, difficulty breathing ??? Prochlorperazine Medications: MAR and/or home medications have been reviewed. Physical Exam: There were no vitals filed for this visit. There is no height or weight on file to calculate BMI. Airway Assessment: Mallampati: I TM distance: >3 FB Neck ROM: full Cardiovascular Assessment: Pulmonary Assessment: [facility]: Anesthesia Plan: ASA 3 general, with a(n) intravenous induction 52 year old female with mild asthma, hypothyroidism, depression, Hep C, cirrhosis, obesity, GERD (well controlled), and HLD for EGD and colo. Region - Other Informed Consent: Anesthetic plan and risks discussed with patient. Plan discussed with OIL EXPERT and attending. Misc. Assessment: documented in this encounter Plan of Treatment Upcoming Encounters Date Type Department Care Team (Late st Contact Info) Description 11/29/2024 1:30 PM EST Appointment XRay at [address] [place] [phone] Laurent Cabrera MD [facility] [place] [address] 11/29/2024 2:20 PM EST Office Visit [place] [phone] Laurent Cabrera MD [facility] [place] [address] documented as of this encounter Visit Diagnoses Not on filedocumented in this encounter Administered Medications Inactive Administered Medications - up to 3 most recent administrations Medication Order MAR Action Action Date Dose Rate Site glycopyrrolate (ROBINUL) injection PRN, Starting on Tue06/06/13 at 1043, Until Tue06/06/13 at 1143, Anesthesia Intra-op, Routine Given 06/06/2013 10:43 AM EDT 0.3 mg lactated ringers infusion CONTINUOUS PRN, Starting on Tue06/06/13 at 1039, Until Tue06/06/13 at 1143, Anesthesia Intra-op New Bag 06/06/2013 10:39 AM EDT mL lidocaine (PF) (XYLOCAINE) 100 mg/5 mL (2 %) injection PRN, Starting on Tue06/06/13 at 1043, Until Tue06/06/13 at 1143, Anesthesia Intra-op, Routine Given 06/06/2013 10:43 AM EDT 100 mg propofol (DIPRIVAN) 10 mg/mL bolus injection (Anesthesia) PRN, Starting on Tue06/06/13 at 1043, Until Tue06/06/13 at 1143, Anesthesia Intra-op Given 06/06/2013 10:43 AM EDT 150 mg propofol (DIPRIVAN) infusion CONTINUOUS PRN, Starting on Tue06/06/13 at 1040, Until Tue06/06/13 at 1143, Anesthesia Intra-op, Routine New Bag 06/06/2013 10:40 AM EDT 150 mcg/kg/min 94.3 mL/hr documented in this encounter Care Teams Apparatus Cleaner Relationship Specialty Start Date End Date Emigdio Centeno MD [address] [place] [address] PCP - General 03/27/13 07/08/16 documented as of this encounter
--- OUTSIDE RECORDS SUMMARY | 2024-11-22 17:36 | XMS_ITS | Encounter Summary ---
Author Organization [facility] [address] [place] [address] Care Team Providers Care Sanitation Truck Cleaner Name Role Phone Emigdio Centeno MD Primary Care Provider [phone] Encounter Details Date Type Department Care Team (Late st Contact Info) Description 02/27/2014 Telephone Gastroenterology at [facility] [place] [phone] Kate Jimenez, RN Social History Tobacco Use [...] Telephone Encounter - Kate Jimenez RN - 02/27/2014 2:45 PM EDT Per Kory Mark STAFF AIR TACTICAL OFFICER: Please tell pt that her plts are low due to cirrhosis (this is expected complication of cirrhosis). She needs to ask her PCP about increasing dose of Vitamin D. Call to patient with this information documented in this encounter Plan of Treatment Upcoming Encounters Date Type Department Care Team (Late st Contact Info) Description 11/29/2024 1:30 PM EST Appointment XRay at [address] [place] [phone] Laurent Cabrera MD [facility] ORTHOPAEDIC [place] [address] 11/29/2024 2:20 PM EST Office [place] [address] Laurent Cabrera MD [facility] ORTHOPAEDIC [place] [address] documented as of this encounter Visit Diagnoses Not on filedocumented in this encounter Care Teams Sanitation Truck Cleaner Relationship Specialty Start Date End Date Emigdio Centeno MD [address] [place] [address] PCP - General 03/27/13 07/08/16 documented as of this encounter
--- OUTSIDE RECORDS SUMMARY | 2024-11-22 17:36 | XMS_ITS | Encounter Summary ---
Author Organization [facility] [address] [place] [address] Care Team Providers Care Fountain Brush Assembler Name Role Phone Emigdio Centeno MD Primary Care Provider [phone] Reason for Visit * Reason Comments Other Encounter Details Date Type Department Care Team (Late st Contact Info) Description 04/10/2013 Telephone Hematology [place] [phone] Juliet Simmons APRN [facility] [address] [place] [address] Social History Tobacco Use Types Packs/Day Years [...] Miscellaneous Notes * Telephone Encounter - Juliet Simmons APRN - 04/10/2013 10:38 AM EDT Received a call from Gena who underwent a bone marrow biopsy yesterday c/o pain at the site withsome pain radiating down the back of her thigh. Did not feel like sciatica to her. Site is without s/s infection. No fevers. Sm amt oozing. She was an extremely difficulty bone marrow biopsy. I told her she can use heat / ice at the site and most likely it is going to take days for her to feel better. She has Oxycodone at home which she takes TID for leg / belly pain. Cannot take tylenol (liver cirrhosis) or any NSAIDS due to platelet count. Tara will call back if the pain worsens or there are any s/s infection. She will put pressure onthe site if there is any oozing. MERE Lucas documented in this encounter Plan of Treatment Upcoming Encounters Date Type Department Care Team (Late st Contact Info) Description 11/29/2024 1:30 PM EST Appointment XRay at [address] [place] [address] Laurent Cabrera MD [facility] [place] [address] 11/29/2024 2:20 PM EST Office Visit Orthopaedics at [facility] [place] [address] Laurent Cabrera MD [facility] [place] [address] documented as of this encounter Visit Diagnoses Not on filedocumented in this encounter Care Teams Fountain Brush Assembler Relationship Specialty Start Date End Date Emigdio Centeno MD [address] [place] [address] PCP - General 03/27/13 07/08/16 documented as of this encounter
--- OUTSIDE RECORDS SUMMARY | 2024-11-22 17:36 | XMS_ITS | Encounter Summary ---
Author Organization [facility] [address] [place] [address] Care Team Providers Care Optics Technical Officer Name Role Phone Emigdio Centeno MD Primary Care Provider [phone] Encounter Details Date Type Department Care Team (Latest Contact Info) Description 08/15/2013 9:47 AM EDT - 08/15/2013 11:59 PM EDT Hospital Encounter Ultrasound at [facility] [place] [phone] Cirrhosis of liver Social History Tobacco Use [...] Sig Dispensed Refills Start Date End Date nicotine (NICODERM CQ) 14 mg/[address] 1 patch onto the skin daily. 42 patch 0 08/15/2013 04/02/2014 nicotine (NICODERM CQ) 7 mg/[address] 1 patch onto the skin daily. 14 patch 0 08/15/2013 04/02/2014 rifaximin (XIFAXIN) 550 mg Tab tablet Take 1 tablet by mouth 2 times daily. 180 tablet 3 08/15/2013 11/09/2016 naproxen sodium (ALEVE) 220 mg tablet Take 220 mg by mouth 2 times daily (with meals). 04/02/2014 ondansetron (ZOFRAN) 4 mg tablet Take 4 mg by mouth every 8 hours as needed. 04/02/2014 OXYcodone (ROXICODONE) 5 mg immediate release tablet [...] times daily. 04/18/2019 ergocalciferol (ERGOCALCIFEROL) 50,000 unit capsuleIndications:Luz cytopenia Take 50,000 Units by mouth once a week. 04/02/2014 documented as of this encounter Plan of Treatment Upcoming Encounters Date Type Department Care Team (Late st Contact Info) Description 11/29/2024 1:30 PM EST Appointment XRay at [address] [place] [address] Laurent Cabrera MD [facility] [place] [address] 11/29/2024 2:20 PM EST Office Visit Orthopaedics at [facility] [place] [address] Laurent Cabrera MD [facility] [place] [address] documented as of this encounter Procedures Procedure Name Priority Date/Time Associated Diagnosis Comments US ABDOMEN COMPLETE WITH VASCULAR Routine 08/15/2013 10:48 AM EDT Cirrhosis of liver documented in this encounter Results * US abdomen complete with vascular (08/15/2013 10:48 AM EDT) Anatomical Region Laterality Modality Abdomen Ultrasound 08/15/2013 10:4 8 AM EDT Narrative 08/15/2013 10:59 AM EDT ?Abdominal Duplex ? (Signed Final 08/15/2013 10:58 am) Patient Info ID: ? [id number] ? : ??[birth year] (53 yrs) Name: ? RISSA YUN ? Visit Date: 08/15/2013 10:41 am Performed By Performed By: ?Stacey Moreno RDMS Attending: ? Arnaldo PHIPPS, Micheal Lyon Referred By: ? FATOUMATA PINO APRN Service(s) Provided UABDCVASC - Abdominal Complete Survey with ?[id number], [id number] Vascular - [id number], [id number] Indications cirrhosis, HCC surveillance Comparison CT : // 04/30/13 ----- Liver ----- Right Lobe Length: ?? 15.7 ?? cm Echogenicity/Echotexture: ?? Mild increase in echogenicity. Portal Veins: ?Normal Hepatic Veins: ?? Patent Gallbladder Comment: ?Surgically removed Biliary Tract Intrahepatic Ducts: ?? Mild dilatation Extrahepatic Ducts: ?? Normal Common Duct Size: ? 10 ?mm -------- Pancreas -------- Head: ? Limited views Tail: ? Poorly visualized due to overlying bowel Body: ? Normal ------ Spleen ------ Size (cm) ?L: ??16.2 Comment: ?Severe splenomegaly Right Kidney Size (cm) ?L: ??11 Cortical Thickness: ?Normal Cortical Echogenicity: ?? Normal Hydronephrosis: ?No sonographic evidence Comment: ?Probable stone upper-mid kidney. Left Kidney Size (cm) ?L: ??11.3 Cortical Thickness: ?Normal Cortical Echogenicity: ?? Normal Hydronephrosis: ?No sonographic evidence Comment: ?6 mm stone mid, 5 mm stone inferior left kidney. ----- Aorta ----- Comment: ?Normal in caliber --- IVC --- Proximal portion, normal in caliber Hepatic-Portal Duplex Portal Vein At [place] ?PSV: ?? 21 ? cm/s Hepatic Artery ?PSV: ?? 57.1 ? cm/s ?EDV: ?? 15.4 ? cm/s Hepatic Artery ?RI: ?0.73 Right Hepatic Vein Waveform: ?Patent Middle Hepatic Vein Waveform: ? Patent Left Hepatic Vein Waveform: ? Patent IVC ??Waveform: ?Patent Impression Ultrasound - Abdomen Complete - Summary Cirrhosis with splenomegaly. ??No sonographic evidence of hepatic mass. Bilateral renal calculi. Ultrasound - Vascular evaluation - Summary The hepatic veins, portal veins and hepatic artery are patent with normal directional flow. I ??viewed the images and agree with the above interpretation. Thank you for allowing us to participate in the care of RISSA YUN. Please do not hesitate to call if you have any questions. ? Micheal Mcintosh MD Electronically Signed Final Report ?? 08/15/2013 10:58 am Procedure Note Micheal Mcintosh MD - 08/15/2013 Abdominal Duplex (Signed Final 08/15/2013 10:58 am) Patient Info ID: [id number] : [birth year] (53 yrs) Name: RISSA YUN Visit Date: 08/15/2013 10:41 am Performed By Performed By: Stacey Moreno RDMS Attending: Micheal Mcintosh MD Referred By: FATOUMATA PINO APRN Service(s) Provided UABDCVASC - Abdominal Complete Survey with [id number], [id number] Vascular - [id number], [id number] Indications cirrhosis, HCC surveillance Comparison CT : // 04/30/13 ----- Liver ----- Right Lobe Length: 15.7 cm Echogenicity/Echotexture: Mild increase in echogenicity. Portal Veins: Normal Hepatic Veins: Patent Gallbladder Comment: Surgically removed Biliary Tract Intrahepatic Ducts: Mild dilatation Extrahepatic Ducts: Normal Common Duct Size: 10 mm -------- Pancreas -------- Head: Limited views Tail: Poorly visualized due to overlying bowel Body: Normal ------ Spleen ------ Size (cm) L: 16.2 Comment: Severe splenomegaly Right Kidney Size (cm) L: 11 Cortical Thickness: Normal Cortical Echogenicity: Normal Hydronephrosis: No sonographic evidence Comment: Probable stone upper-mid kidney. Left Kidney Size (cm) L: 11.3 Cortical Thickness: Normal Cortical Echogenicity: Normal Hydronephrosis: No sonographic evidence Comment: 6 mm stone mid, 5 mm stone inferior left kidney. ----- Aorta ----- Comment: Normal in caliber --- IVC --- Proximal portion, normal in caliber Hepatic-Portal Duplex Portal Vein At [place] PSV: 21 cm/s Hepatic Artery PSV: 57.1 cm/s EDV: 15.4 cm/s Hepatic Artery RI: 0.73 Right Hepatic Vein Waveform: Patent Middle Hepatic Vein Waveform: Patent Left Hepatic Vein Waveform: Patent IVC Waveform: Patent Impression Ultrasound - Abdomen Complete - Summary Cirrhosis with splenomegaly. No sonographic evidence of hepatic mass. Bilateral renal calculi. Ultrasound - Vascular evaluation - Summary The hepatic veins, portal veins and hepatic artery are patent with normal directional flow. I viewed the images and agree with the above interpretation. Thank you for allowing us to participate in the care of RISSA YUN. Please do not hesitate to call if you have any questions. Micheal Mcintosh MD Electronically Signed Final Report 08/15/2013 10:58 am Juventino Esteban MD IMG US GEN ORDERABL ES documented in this encounter Visit Diagnoses Diagnosis Cirrhosis of liver Cirrhosis of liver without mention of alcohol documented in this encounter Care Teams Optics Technical Officer Relationship Specialty Start Date End Date Emigdio Centeno MD [address] [place] [address] PCP - General 03/27/13 07/08/16 documented as of this encounter
--- OUTSIDE RECORDS SUMMARY | 2024-11-22 17:36 | XMS_ITS | Encounter Summary ---
Author Organization [facility] [address] [place] [address] Care Team Providers Care Sales And Marketing Coordinator Name Role Phone Emigdio Centeno MD Primary Care Provider [phone] Encounter Details Date Type Department Care Team (Late st Contact Info) Description 10/08/2013 Telephone Gastroenterology at [facility] [place] [phone] Kate Jimenez, RN Social History Tobacco Use [...] Encounter - Kate Jimenez RN - 10/08/2013 9:47 AM EST Call from patient who states that she has been much more confused, fatigued, uncoordinated, has fallen many times. She has fevers intermittently. Her eyes seem to have gotten more yellow over the last week. For the last four nights she has awakened vomiting dark/black emesis. Spoke with whoconfirms the above. Advised both patient and that patient should go to the ED now. They agree. They are in [place], and will go to the [facility] in [place], and will call us back with an update documented in this encounter Plan of Treatment Upcoming Encounters Date Type Department Care Team (Late st Contact Info) Description 11/29/2024 1:30 PM EST Appointment XRay at [address] [place] [address] Laurent Cabrera MD [facility] [place] [address] 11/29/2024 2:20 PM EST Office Visit Orthopaedics at [facility] [place] [address] Laurent Cabrera MD [facility] [place] [address] documented as of this encounter Visit Diagnoses Not on filedocumented in this encounter Care Teams Sales And Marketing Coordinator Relationship Specialty Start Date End Date Emigdio Centeno MD [address] [place] [address] PCP - General 03/27/13 07/08/16 documented as of this encounter
--- OUTSIDE RECORDS SUMMARY | 2024-11-22 17:36 | XMS_ITS | Encounter Summary ---
[place] [address] Care Team Providers Care Groundwater Consultant Name Role Phone Emigdio Centeno MD Primary Care Provider [phone] Encounter Details Date Type Department Care Team (Late st Contact Info) Description 04/09/2013 1:00 PM EDT - 04/09/2013 2:00 PM EDT Surgery [place] [address] Nasra Zeng MD ([facility] MSURG) BONE MARROW ASP PERFORMED W/BX THRU BX INCISION (WRVU 0.16) Social History Tobacco Use Types Packs/Day Years [...] 8am - 5pm After 5 PM call [phone] for the doctor diamond merchant [address] ??? [place] [address] ??? [phone] ??? [email or web address] ??? [facility] ??? [facility] ??? [facility] documented in this encounter Medications at Time [...] 11/29/2024 1:30 PM EST Appointment XRay at [address] [place] [address] Laurent Cabrera MD [facility] ORTHOPAEDIC SURGERY [facility] [place] [address] 11/29/2024 2:20 PM EST Office Visit Orthopaedics at [facility] [place] [address] Laurent Cabrera MD [facility] [place] [address] documented as of this encounter Procedures Procedure [...] 13 2:30 PM EDT BONE MARROW PANEL [place] [place] Routine 04/09/2013 2:30 PM EDT ([facility] MSURG) [...] acquired (04/09/2013 4:04 PM EDT) Pathologist [facility] Cytogenetics Acquired Report Final Report [facility] Department of Pathology - Cytogenetics Laboratory [address] [place] [id number] ---Clinical Information--- Indication for Study: Pancytopenia Specimen: ? Bone Marrow Accession: ?[id number] Collection Date/Time: 04/09/2013 14:30 Received Date/Time: ?? 04/09/2013 16:04 ---Preparation--- 24 and 48 hour short term cultures Banding Method: ??G-banding Banding Level: less than 350 bands ---Analysis--- Total Cultures Analyzed: ??2 Total Metaphase Cells Counted: ??20 Total Metaphase Cells Analyzed: ??20 Total Metaphase Cells Karyotyped: ??6 ---Karyotype--- 46,XX[20] ---Interpretation --- Karyotype characteristic of a normal female. .14.13 (Electronic Signature) Verified By: David Ph.D., Shyann Horn Director, Cytogenetics [facility] 04/09/2013 4:04 PM EDT Nasra Zeng MD HEMATOLOGY ORDER YANN [facility] * Bone Marrow Addendum Report (04/09/2013 3:37 PM EDT) [facility] Bone Marrow Addendum Report ? [facility] ? Provider: ?? NASRA ZENG Pt. Name: ?? YUN, TARA E ?H ? Acc #: ?[id number] ? Pt. ? Col Date: ?? 04/09/2013 [...] Block ?Antibody ? Result (Positive/Negative) ? A ?[place] ?Positive, subset plasma cells ? A ?Lambda ? Positive, subset plasma cells ? 04/17/13 ? NBL ? 04/17/13 Verified by: ? Kar PHIPPS, Espinoza Chandra ? Hematopathologist ? (Electronic Signature) ? The attending pathologist whose signature appears on this report has ? reviewed all diagnostic slides and has edited the gross and/or ? microscopic portion of the report in rendering the final pathologic ? diagnosis. [facility] 04/09/2013 3:37 PM EDT Nasra Zeng MD PATHOLOGY/CYTOLO GY ORDERABLES [facility] * Bone Marrow Final Report (04/09/2013 3:37 PM EDT) Bone Marrow Final Report ? [facility] ? Provider: ?? NASRA ZENG Pt. Name: ?? TARA YUN ?H ? Acc #: ?[id number] ? Pt. ? Col Date: ?? 04/09/2013 [...] ? dysplasia or infiltrative disease-see comment ? [facility] ? Provider: ?? NASRA ZENG Pt. Name: ?? TARA YUN ?H ? Acc #: ?[id number] ? Pt. ? Col Date: ?? 04/09/2013 ? /Sex: ?1960,(52 years),Female ? Rec Date: ?? 04/09/2013 ? LOC: ?[facility] ? HEMATOPATHOLOGY ? 4. Iron stores not well characterized ? 04/11/13 ? NBL ? 04/11/13 Verified by: ? Kar PHIPPS, Espinoza Chandra ? Hematopathologist ? (Electronic Signature) ? The [...] MD PATHOLOGY/CYTOLO GY ORDERABLES Performing Organization Address City/State/[facility] Co de Phone Number [facility] * Bone Marrow Flow Cytometry Report (04/09/2013 3:37 PM EDT) Bone Marrow Flow Cytometry Report ? [facility] ? Provider: ?? NASRA ZENG Pt. Name: ?? TARA YUN ?H ? Acc #: ?[id number] ? Pt. ? Col Date: ?? 04/09/2013 ? /Sex: ?1960,(52 years),Female ? Rec Date: ?? 04/09/2013 ? LOC: ?[facility] ? ANALYTICAL CELL PATHOLOGY ? ---Clinical Information--- ? Pancytopenia, Chronic Hep C disease, assess for increased myeloid ? precursors ? ---Preparation--- ? FCM#: [id number] ? [id number] ? ---Markers--- ?Cells for immunophenotypic analysis were [...] ? ROBY ? 04/10/13 Verified by: ? Espinoza Lakhani MD ? [...] by the Clinical Flow Cytometry Laboratory at [facility] ? Center. It has not been cleared or approved by the U.S. Food and Drug ? Administration. ??The FDA has determined that such clearance or approval is ? not necessary. ??This test is used for clinical purposes. ??It should not be ? regarded as investigational or ? [facility] ? Provider: ?? NASRA ZENG Pt. Name: ?? TARA YUN ?H ? Acc #: ?[id number] ? Pt. ? Col Date: ?? 04/09/2013 ? /Sex: ?1960,(52 years),Female ? Rec Date: ?? 04/09/2013 ? LOC: ?[facility] ? ANALYTICAL CELL PATHOLOGY ? for research. ??This laboratory is certified under the Clinical Laboratory ? Improvement Act of 1988 (CLIA) as qualified to perform high complexity ? clinical laboratory testing. [facility] 04/09/2013 3:37 PM EDT Nasra Zeng MD PATHOLOGY/CYTOLO GY ORDERABLES Performing Organization Address [facility] de Phone Number [facility] * Immunophenotyping Flow Cytometry (04/09/2013 2:30 PM EDT) Type of Specimen Bone Marrow [facility] Panel Requested Other [facility] Immunophenotyping Flow See Comment [facility] Comment: When completed by the Pathologist, the Flow Cytometry Report ([id number]) will display under the Hematopathology Reports result section in eDH. Body fluid specimen (specimen) 04/09/2013 2:30 PM EDT 04/10/2013 7:26 AM EDT Narrative Resulting Agency Comment Spec In Lab Nasra Zeng MD HEMATOLOGY ORDER YANN Performing Organization Address [facility] de Phone Number [facility] * Iron Stain, Bone Marrow (04/09/2013 2:30 PM EDT) Bone Marrow Iron Stain See Comment [facility] Comment:See Bone Marrow Repo rt [id number] under Hematopathology Reports. Bone marrow specimen (specimen) 04/09/2013 2:30 PM EDT 04/09/2013 3:26 PM EDT Narrative Resulting Agency Comment Spec In Lab Nasra Zegn MD HEMATOLOGY ORDER YANN Performing Organization Address [facility] de Phone Number [facility] * (ABNORMAL) Differential, Automated (04/09/2013 12:24 PM EDT) Neutrophil % 66.6 34.0 - 71.0 % [facility] Neutrophil Absolute 2.11 1.50 - 6.30 x10(3)/mc L [facility] Lymph % 24.9 19.0 - 53.0 % [facility] Lymphocytes Abs 0.8(L) 1.0 - 3.6 x10(3)/mc [...] Hemoglobin Concentration 31.6(L) 32.0 - 36.5 gm/dL [facility] Platelet 86(L) 145 - 370 x10(3)/mc L [facility] RDW Standard Deviation 46.9(H) 35.0 - 46.0 fL [facility] RDW coefficient of variation 15.0(H) 10.9 - 14.4 % [facility] Mean Platelet Volume 10.0 9.0 - 12.0 fL [facility] Blood specimen (specimen) 04/09/2013 12:24 PM EDT 04/09/2013 12:56 PM EDT Narrative Resulting Agency Comment Spec In Lab Nasra Zeng MD HEMATOLOGY ORDER YANN [facility] documented in this encounter Visit Diagnoses Not [...] Routine 1300 (Given - Provid er: Brenda Dubios RN)1321 (Given - Provider: Brenda Dubois RN)1328 (Given - Provider: Brenda Dubois RN)1334 (Given - Provider: Brenda Dubois RN)1355 (Given - Provider: Brenda Dubois RN)1410 (Given - Provider: Brenda Dubois RN)1415 (Given - Provider: Brneda Dubois RN) midazolam (VERSED) injection 0.5-2 mg [...] RN) documented in this encounter Care Teams Groundwater Consultant Relationship Specialty Start Date End Date Emigdio Centeno MD [address] [place] [address] PCP - General 03/27/13 07/08/16 documented as of this encounter
--- OUTSIDE RECORDS SUMMARY | 2024-11-22 17:36 | XMS_ITS | Encounter Summary ---
Author Organization [facility] [address] [place] [address] Care Team Providers Care Bakery Team Leader Name Role Phone Emigdio Centeno MD Primary Care Provider [phone] Encounter Details Date Type Department Care Team (Late st Contact Info) Description 04/13/2013 Telephone Hematology [place] [id number] Juliet Gaitan, RN Social History Tobacco Use Types Packs/Day [...] Miscellaneous Notes * Telephone Encounter - Juliet Gaitan, RN - 04/13/2013 12:14 PM EDT Received request from Juliet Simmons APRN to check in on Gena. Call placed to her home. Gena stated that her bone marrow biopsy site has stopped oozing she has a tegadem on it now and will be showering soon. She was advised to keep a bandaid on it for 2 more days and then if all continues well she can remove the bandaid. Her energy level remains low ans she stated that she has the stomach b ug Her significant other oand friends have had this. Theirs lasted 4 days ,,She is now 2 days intoit with a symptom of mostly diarrhea. She is following the BRAT diet taking fluids. Her main concern now is to get the results of the bone marrowr biopsy She knows that she can call for any questionsthat arise. Message forwarded to Juliet Haqally signed by Juliet Gaitan, RN at 04/13/2013 12:20 PM EDT documented in this encounter Plan of Treatment Upcoming Encounters Date Type Department Care Team (Late st Contact Info) Description 11/29/2024 1:30 PM EST Appointment XRay at [address] [place] [address] Laurent Cabrera MD [facility] [place] [address] 11/29/2024 2:20 PM EST Office Visit Orthopaedics at [facility] [place] [address] Laurent Cabrera MD [facility] [place] [address] documented as of this encounter Visit Diagnoses Not on filedocumented in this encounter Care Teams Bakery Team Leader Relationship Specialty Start Date End Date Emigdio Centeno MD [address] [place] [address] PCP - General 03/27/13 07/08/16 documented as of this encounter
--- OUTSIDE RECORDS SUMMARY | 2024-11-22 17:36 | XMS_ITS | Encounter Summary ---
Author Organization [facility] [address] [place] [address] Care Team Providers Care Pathology Laboratory Technologist Name Role Phone Emigdio Centeno MD Primary Care Provider [phone] Reason for Visit * Reason Comments Follow-up Encounter Details Date Type Department Care Team (Late st Contact Info) Description 04/02/2014 2:30 PM EDT Follow-Up Gastroenterology at [facility] [place] [phone] CLINIC, Fatoumata Caraballo, IR[employer] P[employer]ER Cirrhosis of liver (Primary Dx) Discharge Disposition: [...] Time Taken Comments Blood Pressure 106/58 04/02/2014 2:44 PM EDT Pulse 61 04/02/2014 2:44 PM EDT Temperature - - Respiratory Rate - - Oxygen Saturation - - Inhaled Oxygen Concentration - - Weight 103.4 kg (228 lb) 04/02/2014 2:44 PM EDT Height 162.6 cm (5' 4) 04/02/2014 2:44 PM EDT Body Mass Index 39.14 04/02/2014 2:44 PM EDT documented in this encounter Progress Notes * Fatoumata Pino APRN - 04/02/2014 5:40 PM EDT Addendum: Abdominal MRI 04/02/14: Impression 1. Hepatic cirrhosis, without visualized focal hepatic lesion or mass. Evaluation for hypervascular lesions may be compromised by early timing of the arterial phase. 2. Probable mild hepatic steatosis. 3. Portal hypertension, characterized by moderate splenomegaly and trace ascites. 4. Pancreatic divisum. I called and LMOM explaining no worrisome lesions on MRI. Plan to repeat labs and ultrasound in 6 months. * Fatoumata Pino APRN - 04/02/2014 2:40 PM EDT Subjective: Patient ID: Rissa Yun [...] again in 05/2016 3. HCC surveillance - MRI 04/02/14 pending. AFP 2.6 (04/02/14) 4. Colonoscopy - no polyps but poor prep. Due for repeat 05/2016. Initial Consult 05/02/13: Ms. Yun is a very pleasant 52 year old white female seen today at [facility] in consultation for cirrhosis in setting of positive HCV antibody. She was diagnosed with hepatitis C about 15 years ago. She was never treated. She denies experiencing an icteric illness. On recent testing here, her HCV RNA was undetectable (<43-). She was recently diagnosed with cirrhosis of the liver after her ventral hernia repair in [place] performed on 01/11/13 during which she required [...] of her camper, which they take to [place] in August. Interval History 08/15/13: Ms. Yun [...] be poorly controlled. She is leaving for [place] on 08/21/13. She wants to get a dog. Interval History 04/02/14: Ms. Yun returns today in follow-up of cirrhosis. She tells me that her confusion remains poorly controlled despite Rifaximin 550 mg BID and Lactulose 30 cc once or twice daily. She is having 2 liquid stools daily. She denies s/s recurrent ascites. She denies s/s UGIB. She got a puppy and is walking multiple times daily since September. She has lost about 5 lbs in past 6 months. She has made some diet changes (decreasing portion sizes, decreasing number of sweets and avoiding fried foods) but continues to drink lots of sweetened beverages. She tried the patches but did not use them as she should have. She continues to smoke, but a pack of cig now lasts a week. Abdominal CT Scan 04/30/13: Findings Imaged portions [...] upper endoscopy in 3 years for surveillance. Abdominal Ultrasound 08/15/13: Impression Ultrasound - Abdomen Complete - Summary Cirrhosis with splenomegaly. No sonographic evidence of hepatic mass. Bilateral renal calculi. Ultrasound - Vascular evaluation - Summary The hepatic veins, portal veins and hepatic artery are patent with normal directional flow. Labs 04/02/14: Results for RISSA YUN ( ) as of 04/02/2014 14:40 Ref. Range 04/02/2014 12:09 WBC Latest Range: 4.0-10.0 x10(3)/mcL 2.6 (L) RBC Latest Range: 3.93-5.22 x10(6)/mcL 4.47 Hemoglobin Latest Range: 11.2-15.7 gm/dL 12.8 Hematocrit Latest Range: 34.0-45.0 % 40.6 MCV Latest Range: 79.0-94.0 fL 90.8 MCH Latest Range: 26.6-32.2 pg 28.6 MCHC Latest Range: 32.0-36.5 gm/dL 31.5 (L) RDWSD Latest Range: 35.0-46.0 fL 47.2 (H) RDWCV Latest Range: 10.9-14.4 % 14.2 Platelets Latest Range: 145-370 x10(3)/mcL 61 (L) MPV Latest Range: 9.0-12.0 fL 10.7 Neutr Abs (ANC) Latest Range: 1.50-6.30 x10(3)/mcL 1.80 Neutrophils % Latest Range: 34.0-71.0 % 69.2 Immature Gran % Latest Range: 0.00-0.66 % 0.00 Lymphocytes % Latest Range: 19.0-53.0 % 20.8 Monocytes % Latest Range: 4.0-13.0 % 7.3 Eosinophils % Latest Range: 0.0-7.0 % 2.3 Basophils % Latest Range: 0.0-2.0 % 0.4 Marcie Gran Abs Latest Range: 0.00-0.05 x10(3)/mcL 0.00 Lymphocytes Abs Latest Range: 1.0-3.6 x10(3)/mcL 0.5 (L) Monocyte Abs Latest Range: 0.2-1.0 x10(3)/mcL 0.2 Eosinophils Abs Latest Range: 0.0-0.5 x10(3)/mcL 0.1 Basophils Abs Latest Range: 0.0-0.2 x10(3)/mcL 0.0 PT Latest Range: 12.0-15.0 sec 16.0 (H) INR Latest Range: 0.9-1.1 1.2 (H) Sodium Latest Range: 135-145 mmol/L 141 Potassium Latest Range: 3.5-5.0 mmol/L 4.3 Chloride Latest Range: 98-107 mmol/L 103 CO2 Latest Range: 22-31 mmol/L 31 Anion Gap Latest Range: 5-15 mmol/L 7 BUN Latest Range: 8-18 mg/dL 9 Creatinine Latest Range: 0.70-1.20 mg/dL 0.90 Estimated GFR Latest Range: >=60 >60 Glucose Lvl Latest Range: 60-199 mg/dL 120 Calcium Latest Range: 8.5-10.5 mg/dL 9.2 Total Protein Latest Range: 6.4-8.3 gm/dL 6.6 Albumin Latest Range: 3.2-5.2 gm/dL 3.9 Total Bilirubin Latest Range: 0.2-1.3 mg/dL 0.5 Bili, Direct Latest Range: 0.0-0.3 mg/dL 0.1 Alk Phos Latest Range: 40-104 unit/L 110 (H) AST Latest Range: 0-30 unit/L 21 ALT Latest Range: 0-30 unit/L 14 AFP Latest Range: <=8.3 ng/mL 2.6 Past Medical History Diagnosis Date ??? Hypothyroid ??? GERD (gastroesophageal reflux disease) ??? Hepatitis C antibody test positive ??? Depression ??? Hyperlipidemia ??? Asthma mild intermittent ??? Arthritis Past Surgical History Procedure Date ??? Bone marrow aspiration w/bx through same incision/site 04/09/2013 ([facility]) BONE MARROW ASP PERFORMED W/BX THRU BX INCISION performed by Dom Zeng MD at [facility] ??? Bone marrow bx, needle/trocar 04/09/2013 ([facility]) BONE MARROW,BIOPSY performed by Dom Zeng MD at [facility] ??? Ventral hernia repair 01/11/13 [place] ??? Appendectomy 11/16/96 ??? Dental surgery 03/25/1989 ??? Knee surgery x 11 ??? Total knee arthroplasty 2006 left ??? Total knee arthroplasty 2005 right ??? Toe surgery 2006 right ??? Hysterectomy 1987 ??? Ovary removal 1987 ??? Cholecystectomy 1992 ??? Hiatal hernia repair 1992 ??? Gastric fundoplication 1992 ??? Tonsillectomy 1960 ??? Colonoscopy, diagnostic 06/06/2013 COLONOSCOPY, DIAGNOSTIC performed by Juventino Esteban MD at [facility] lactulose (CHRONULAC) 10 gram/15 mL solution; ALPRAZolam (XANAX) 0.5 mg tablet; nicotine (NICODERM CQ) 14 mg/24 hr; nicotine (NICODERM CQ) 7 mg/24 hr patch; rifaximin (XIFAXIN) 550 mg Tab tablet; naproxen sodium (ALEVE) 220 mg tablet; ondansetron (ZOFRAN) 4 mg tablet; OXYcodone (ROXICODONE) 5 mg immediate release tablet; escitalopram (LEXAPRO) 20 mg tablet; levothyroxine (SYNTHROID) 25 mcg tablet; pantoprazole (PROTONIX) 40 mg tablet DOCUSATE SODIUM (COLACE ORAL); FERROUS SULFATE, DRIED (IRON, DRIED, ORAL); ergocalciferol (ERGOCALCIFEROL) 50,000 unit capsule Allergies Allergen Reactions ??? Sulfa (Sulfonamide Antibiotics) [...] domestic partner of 18 years. Lives in [facility]. 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 Travels [...] and leg swelling. Gastrointestinal: Positive for abdominal pain (Abdominal pain around hernia repair sites. Pain may be slightly worse), diarrhea and abdominal distention (Intermittent). Negative for nausea (improved), vomiting, constipation and blood in stool. Occasional heartburn. Taking Protonix 40 mg once daily. Has breakthrough heartburn twice a week which helps alleviate sx. Lactulose 30 cc 1-2 times daily. BM twice daily Genitourinary: Negative for hematuria. Musculoskeletal: Positive [...] developed and well-nourished. Body mass index is 39.12 kg/(m^2). HENT: Head: Normocephalic and atraumatic. Eyes: [...] no distension and no mass. There is tenderness (RUQ tenderness). There is no guarding. + HSM. Exam limited due to body habitus Musculoskeletal: She exhibits no edema. Lymphadenopathy: She has no cervical adenopathy. Neurological: She is alert and oriented to person, place, and time. No asterixis Skin: Skin is warm and dry. There is erythema (Palmar erythema. Telangectasia on chest). Psychiatric: She has a normal mood and affect. Her behavior is normal. Assessment and Plan: Ms. Yun is a very pleasant 53 year old white female seen today in follow-up for QUIROZ-related cirrhosis. 1. Cirrhosis, likely due to QUIROZ. MELD 8. Child's-Antunez A6. Her risk factors for QUIROZ include Class II Obesity, Hyperlipidemia, hypothyroid and pre-diabetes. Today's MRI is pending. Labs are stable. She will need bi-annual HCC surveillance with [...] mesh repair. Her ascites has now resolved. She is scheduled to see Dr. Lazo this afternoon to discuss surgery. 7. HCV Ab positive. She has HCV Ab positive but a negative viral load, indicating that she cleared the virus spontaneously. Hepatitis C is not the cause of her cirrhosis. 8. QUIROZ. I had a long discussion about QUIROZ. She is losing weight through exercise. Encouraged thatshe continue with exercise regimen. Her eating patterns are improving, but would strongly recommendthat she decrease her sugary beverages consumption. 9. Tobacco use. She tried the patches but did not use them as directed. She continues to smoke but feels that she is ready to quit again. Rec trying patches as directed. Rx Nicoderm patches 14 mg patch daily x 7 weeks, 7 mg patch daily x 2 weeks, then quit. She is discussing agreement that she can get a dog if she quits smoking, which is a motivating factor for her. All of her questions were answered at the conclusion of the visit. She verbalized understanding andagreement to the plan of care. -Await MRI results -I will call her with results -F/U appt in 6 months with labs and ultrasound documented in this encounter Miscellaneous Notes * Addendum Note - Fatoumata Pino APRN - 04/02/2014 5:41 PM EDTAddended by: FATOUMATA PINO on: 04/02/2014 05:41 PM Modules accepted: Orders documented in this encounter Plan of Treatment Upcoming Encounters Date Type Department Care Team (Late st Contact Info) Description 11/29/2024 1:30 PM EST Appointment XRay at [address] [place], [place] [phone] Laurent Cabrera MD [facility] [address] 11/29/2024 2:20 PM EST Office Visit Orthopaedics at [facility] [place] [phone] Laurent Cabrera MD [facility] [address] documented as of this encounter Procedures Procedure Name Priority Date/Time Associated Diagnosis Comments DIFFERENTIAL, AUTOMATED Routine 04/02/2014 12:09 PM EDT AFP TUMOR MARKER Routine 04/02/2014 12:0 9 PM EDT Cirrhosis of liver PROTHROMBIN TIME Routine 04/02/2014 12:0 9 PM EDT Cirrhosis of liver CBC (WITH DIFF) Routine 04/02/2014 12:09 PM EDT Cirrhosis of liver COMPREHENSIVE METABOLIC PANEL Routine 04/02/2014 12:09 PM EDT Cirrhosis of liver documented in this encounter Results * (ABNORMAL) Differential, Automated (04/02/2014 12:09 PM EDT) Neutrophil % 69.2 34.0 - 71.0 % CERNER MILLENNIUM Neutrophil Absolute 1.80 1.50 - 6.30 x10(3)/mc L CERNER MILLENNIUM Lymph % 20.8 19.0 - 53.0 % CERNER MILLENNIUM Lymphocytes Abs 0.5(L) 1.0 - 3.6 x10(3)/mc L CERNER MILLENNIUM Monocyte % 7.3 4.0 - 13.0 % CERNER MILLENNIUM Monocyte Abs 0.2 0.2 - 1.0 x10(3)/mc L CERNER MILLENNIUM Eos % 2.3 0.0 - 7.0 % CERNER MILLENNIUM Eosinophils [...] x10(3)/mc L CERNER MILLENNIUM Blood specimen (specimen) 04/02/2014 12:09 PM EDT 04/02/2014 12:14 PM EDT Juventino Esteban MD HEMATOLOGY ORDERABL ES Performing Organization Address [facility] Co de Phone Number [facility] * AFP tumor marker (04/02/2014 12:09 PM EDT) Alpha Fetoprotein 2.6 <=8.3 ng/mL [facility] Blood specimen (specimen) 04/02/2014 12:09 PM EDT 04/02/2014 12:14 PM EDT Narrative Resulting Agency Comment Spec In Lab Juventino Esteban MD CHEMISTRY ORDERABLE S Performing Organization Address [facility] Co de Phone Number [facility] * (ABNORMAL) Prothrombin Time (04/02/2014 12:09 PM EDT) Prothrombin Time 16.0(H) 12.0 - 15.0 sec CERNER MILLENNIUM Comment: [facility] Transfusion Committee Guidelines: INR less than 2.0, PTT less than OR equal to 43.5 seconds, or Fibrinogen greater than or equal to 100 mg/dl indicate adequate procoagulant activity for hemostasis in patients without underlying bleeding disorders. International Normalization Ratio 1.2(H) 0.9 - 1.1 CERNER MILLENNIUM Blood specimen (specimen) 04/02/2014 12:09 PM EDT 04/02/2014 12:14 PM EDT Narrative Resulting Agency Comment Spec In Lab Juventino Esteban MD HEMATOLOGY ORDERABL ES CERNER MILLENNIUM * (ABNORMAL) Comprehensive metabolic panel (non-fasting) (04/02/2014 12:09 PM EDT) Glucose 120 60 - 199 mg/dL CERNER MILLENNIUM Comment:Diabetes: >=200 mg/d L plus symptoms Blood Urea Nitrogen 9 8 - 18 mg/dL CERNER MILLENNIUM Creatinine 0.90 0.70 - 1.20 mg/dL CERNER MILLENNIUM Comment: Please note that the pediatric reference intervals supplied above were not validated at [facility]. Results from pediatric patients should be interpreted in conjunction to the patient's age, height and muscle mass. Sodium 141 135 - 145 mmol/L CERNER MILLENNIUM Potassium 4.3 3.5 - 5.0 mmol/L CERNER MILLENNIUM Comment: Please note: ??Patients with WBC >100,000 may have falsely elevated Potassium levels. ??For accurate Potassium quantification in these patients send serum separator tube (gold top) for subsequent determinations. ??Contact the Clinical Chemistry Laboratory if there are any questions. Chloride 103 98 - 107 mmol/L CERNER MILLENNIUM Carbon Dioxide 31 22 - 31 mmol/L CERNER MILLENNIUM Anion Gap 7 5 - 15 mmol/L CERNER MILLENNIUM Calcium 9.2 8.5 - 10.5 mg/dL CERNER MILLENNIUM Protein, Total 6.6 6.4 - 8.3 gm/dL CERNER MILLENNIUM Albumin 3.9 3.2 - 5.2 gm/dL CERNER MILLENNIUM Aspartate Aminotransferase 21 0 - 30 unit/L CERNER MILLENNIUM Alanine Aminotransferase 14 0 - 30 unit/L CERNER MILLENNIUM Alkaline Phosphatase 110(H) 40 - 104 unit/L CERNER MILLENNIUM Bilirubin, [...] internet browser. http://www.nkdep.nih.gov/lab-evaluation.shtml http://www.kidney.org/professionals/ Blood specimen (specimen) 04/02/2014 12:09 PM EDT 04/02/2014 12:14 PM EDT Narrative Resulting Agency Comment Spec In Lab Juventino Esteban MD CHEMISTRY ORDERABLE S CERNER MILLENNIUM * (ABNORMAL) CBC (with Diff) (04/02/2014 12:09 PM EDT) White Blood Cell 2.6(L) 4.0 - 10.0 x10(3)/mc L CERNER MILLENNIUM Red Blood Cell 4.47 3.93 - 5.22 x10(6)/mc L CERNER MILLENNIUM Hemoglobin 12.8 11.2 - 15.7 gm/dL CERNER MILLENNIUM Hematocrit 40.6 34.0 - 45.0 % CERNER MILLENNIUM Mean Cell Volume 90.8 79.0 - 94.0 fL CERNER MILLENNIUM Mean Cell Hemoglobin 28.6 26.6 - 32.2 pg CERNER MILLENNIUM Mean Cell Hemoglobin Concentration 31.5(L) 32.0 - 36.5 gm/dL CERNER MILLENNIUM Platelet 61(L) 145 - 370 x10(3)/mc L CERNER MILLENNIUM RDW Standard Deviation 47.2(H) 35.0 - 46.0 fL CERNER MILLENNIUM RDW coefficient of variation 14.2 10.9 - 14.4 % CERNER MILLENNIUM Mean Platelet Volume 10.7 9.0 - 12.0 fL CERNER MILLENNIUM Blood specimen (specimen) 04/02/2014 12:09 PM EDT 04/02/2014 12:14 PM EDT Narrative Resulting Agency Comment Spec In Lab Juventino Esteban MD HEMATOLOGY ORDERABL ES [facility] documented in this encounter Visit Diagnoses Diagnosis Cirrhosis of liver- Primary Cirrhosis of liver without mention of alcohol documented in this encounter Care Teams Pathology Laboratory Technologist Relationship Specialty Start Date End Date Emigdio Centeno MD [address] [place] [address] PCP - General 03/27/13 07/08/16 documented as of this encounter
--- OUTSIDE RECORDS SUMMARY | 2024-11-22 17:36 | XMS_ITS | Encounter Summary ---
Author Organization [facility] [place] [address] [place] [address] Care Team Providers Care Dinkey Mechanic Name Role Phone Emigdio Centeno MD Primary Care Provider [phone] Reason for Visit * Reason Comments Follow-up Encounter Details Date Type Department Care Team (Late st Contact Info) Description 06/26/2013 2:00 PM EDT Follow-Up Gastroenterology at [facility] [place] [phone] Fatoumata Mark APRN Cirrhosis of liver (Primary Dx) Social History Tobacco Use Types [...] Sign Reading Time Taken Comments Blood Pressure 122/82 06/26/2013 1:55 PM EDT Pulse 90 06/26/2013 1:55 PM EDT Temperature - - Respiratory Rate - - Oxygen Saturation - - Inhaled Oxygen Concentration - - Weight 98 kg (216 lb) 06/26/2013 1:55 PM EDT Height 162.6 cm (5' 4) 06/26/2013 1:55 PM EDT Body Mass Index 37.08 06/26/2013 1:55 PM EDT documented in this encounter Progress Notes * Fatoumata Mark APRN - 06/26/2013 1:57 PM EDT Subjective: Patient ID: Tara Boothe is [...] 1. HAV/HBV 2. Portal HTN - EGD 06/06/13 (no varices). Due again in 05/2016 3. HCC surveillance - CT Scan 04/30/13 (no liver lesions). AFP pending 4. Colonoscopy - no polyps but poor prep. Due for repeat 05/2016. Initial Consult 05/02/13: Ms. Boothe is a very pleasant 52 year old white female seen today at [facility] in consultation for cirrhosis in setting of positive HCV antibody. She was diagnosed with hepatitis C about 15 years ago. She was never treated. She denies experiencing an icteric illness. On recent testing here, her HCV RNA was undetectable (<43-). She was recently diagnosed with cirrhosis of the liver after her ventral hernia repair in [place] performed on 01/11/13 during which she required [...] her screening colonoscopy. Interval History 06/26/13: Ms. Boothe returns today in follow-up for cirrhosis. She [...] of her camper, which they take to [place] in August. Abdominal CT Scan 04/30/13: Findings Imaged portions [...] found Rpt JORGE No range found Negative Labs 05/02/13: WBC 3.4 Hgb 12.7 Plt [...] B cAb negative Hep B sAg negative Ceruloplasmin 24.7 Colonoscopy 06/06/13: Findings: The perianal [...] upper endoscopy in 3 years for surveillance. Past Medical History Diagnosis Date ??? Hypothyroid ??? GERD (gastroesophageal reflux disease) ??? Hepatitis C antibody test positive ??? Depression ??? Hyperlipidemia ??? Asthma mild intermittent ??? Arthritis Past Surgical History Procedure Date ??? Bone marrow aspiration w/bx through same incision/site 04/09/2013 ([facility] BONE MARROW ASP PERFORMED W/BX THRU BX INCISION performed by Dom Zeng MD at [facility] ??? Bone marrow bx, needle/trocar 04/09/2013 [place] BONE MARROW,BIOPSY performed by Dom Zeng MD at [facility] ??? Ventral hernia repair 01/11/13 [place] ??? Appendectomy 11/16/96 ??? Dental surgery 03/25/1989 ??? Knee surgery x 11 ??? Total knee arthroplasty 2005 left ??? Total knee arthroplasty 2005 right ??? Toe surgery 2006 right ??? Hysterectomy 1987 ??? Ovary removal 1987 ??? Cholecystectomy 1992 ??? Hiatal hernia repair 1992 ??? Gastric fundoplication 1992 ??? Tonsillectomy 1960 ??? Colonoscopy, diagnostic 06/06/2013 COLONOSCOPY, DIAGNOSTIC performed by Juventino Esteban MD at [facility] naproxen sodium (ALEVE) 220 mg tablet; ondansetron (ZOFRAN) 4 mg tablet; Lactulose 10 gram/15 mL Syrp; OXYcodone (ROXICODONE) 5 mg immediate release tablet; [...] domestic partner of 18 years. [facility] in [facility]. 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 Body mass index is 37.08 kg/(m^2). HENT: Head: Normocephalic and atraumatic. Eyes: Pupils are equal, round, and reactive to light. No scleral icterus. Neurological: She is alert and oriented to person, place, and time. Psychiatric: She has a normal mood and affect. Her behavior is normal. Assessment and Plan: Ms. Boothe is a very pleasant 52 year old white female seen today in follow-up for QUIROZ-related cirrhosis. 1. Cirrhosis, likely due to QUIROZ. MELD 3. Child's-Antunez B-7. She has decompensated liver disease (ascites and encephalopathy). Her risk factors for QUIROZ include Class II Obesity, Hyperlipidemia, hypothyroid and pre-diabetes. She will need bi-annual HCC surveillance with imaging and labs. She leaves for [place] in early August and returns in March. Will plan on seeing her in follow- up before she leaves with ultrasound and AFP. She drinks rarely, 1 [...] Aldactone) if ascites worsens. 3. Hepatic Encephalopathy. Increase Lactulose 30 cc TID and titrate so having 2- 4 stools [...] adviseagainst any elective surgeries at this time. 7. HAV Ab positive. She has HCV Ab positive but a negative viral load, indicating that she cleared the virus spontaneously. Hepatitis C is not the cause of her cirrhosis. 8. QUIROZ. I had a long discussion about QUIROZ. She is losing weight through exercise. Encouraged thatshe continue with exercise regimen. Her eating patterns are erratic. 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 Will try to reschedule. All of her questions were answered at the conclusion of the visit. She verbalized understanding andagreement to the plan of care. Will plan to see her back in July with labs and ultrasound prior to her leaving for [place]. documented in this encounter Plan of Treatment Upcoming Encounters Date Type Department Care Team (Late st Contact Info) Description 11/29/2024 1:30 PM EST Appointment XRay at [address] [place] [phone] Laurent Cabrera MD [facility] [place] [address] 11/29/2024 2:20 PM EST Office [place] [address] Laurent Cabrera MD [facility] [place] [address] documented as of this encounter Results * AFP tumor marker (04/02/2014 12:09 PM EDT) Alpha Fetoprotein 2.6 <=8.3 ng/mL [facility] Blood specimen (specimen) 04/02/2014 12:09 PM EDT 04/02/2014 12:14 PM EDT Narrative Resulting Agency Comment Spec In Lab Juventino Esteban MD CHEMISTRY ORDERABLE S Performing Organization Address [facility] de Phone Number [facility] * (ABNORMAL) Prothrombin Time (04/02/2014 12:09 PM EDT) Prothrombin Time 16.0(H) 12.0 - 15.0 sec CERNER MILLENNIUM Comment: [facility] Transfusion Committee Guidelines: INR less than 2.0, PTT less than OR equal to 43.5 seconds, or Fibrinogen greater than or equal to 100 mg/dl indicate adequate procoagulant activity for hemostasis in patients without underlying bleeding disorders. International Normalization Ratio 1.2(H) 0.9 - 1.[address] [facility] MILLENNIUM Blood specimen (specimen) 04/02/2014 12:09 PM EDT 04/02/2014 12:14 PM EDT Narrative Resulting Agency Comment Spec In Lab Juventino Esteban MD HEMATOLOGY ORDERABL ES Performing Organization Address [facility]/ZIP Co de Phone Number [facility] * (ABNORMAL) Comprehensive metabolic panel (non-fasting) (04/02/2014 12:09 PM EDT) Glucose 120 60 - 199 mg/dL [facility] [employer] [facility]WE[facility] Comment:Diabetes: >=200 mg/d L plus symptoms Blood Urea Nitrogen 9 8 - 18 mg/dL [facility] Creatinine 0.90 0.70 - 1.20 mg/dL [facility] [employer] PartnerENNIUM Comment: Please note that the pediatric reference intervals supplied above were not validated at [facility]. Results from pediatric patients should [...] Juventino Esteban MD CHEMISTRY ORDERABLE S KEVON CUEVASIUM * (ABNORMAL) CBC (with Diff) (04/02/2014 12:09 [...] Esteban MD HEMATOLOGY ORDERABL ES KEVON ARREOLA * AFP tumor marker (08/15/2013 11:53 AM EDT) Alpha Fetoprotein 3.0 <=8.3 ng/mL CERNER MILLENNIUM Comment: Note: 06/05/2013; Methodology changed to Vicki [...] MD CHEMISTRY ORDERABLE S Performing Organization Address [facility] Co de Phone Number KEVON ARREOLA * (ABNORMAL) Prothrombin Time (08/15/2013 11:53 AM EDT) Prothrombin Time 15.1(H) 12.0 - 15.0 sec CERNER MILLENNIUM Comment: [facility] Transfusion Committee Guidelines: INR less than [...] MD HEMATOLOGY ORDERABL ES Performing Organization Address [facility] Co de Phone Number KEVON ARREOLA * Comprehensive metabolic panel (non-fasting) (08/15/2013 11:53 AM EDT) Glucose 108 60 - 199 mg/dL CERNER MILLENNIUM Comment:Diabetes: >=200 mg/d L plus symptoms Blood Urea Nitrogen 9 8 - 18 mg/dL CERNER MILLENNIUM Creatinine 0.84 0.70 - 1.20 mg/dL CERNER MILLENNIUM Comment: Please note that the pediatric reference intervals supplied above were not validated at [facility]. Results from pediatric patients should [...] Juventino Esteban MD CHEMISTRY ORDERABLE S CERAMY CUEVASIUM * (ABNORMAL) CBC (with Diff) (08/15/2013 11:53 [...] Juventino Esteban MD HEMATOLOGY ORDERABL ES KEVON [facility] * US abdomen complete with vascular (08/15/2013 10:48 AM EDT) Anatomical Region Laterality Modality Abdomen Ultrasound 08/15/2013 10:4 8 AM EDT Narrative 08/15/2013 10:59 AM EDT ?Abdominal Duplex ? (Signed Final 08/15/2013 10:58 am) Patient Info ID: ? [id number] ? : ??[birth year] (53 yrs) Name: ? PHYLFRITZ E BOOTHE ? Visit Date: 08/15/2013 10:41 am Performed By Performed By: ?Stacey Moreno RDMS Attending: ? Arnaldo PHIPPS, Micheal Lyon Referred By: ? FATOUMATA MARK PRODUCTION CONTROL PEGBOARD CLERK Service(s) Provided UABDCVASC - Abdominal Complete Survey with ?[id number], 54966 Vascular - [id number], [id number] Indications cirrhosis, HCC surveillance Comparison CT : [...] in caliber Hepatic-Portal Duplex [facility] ?PSV: ?? 21 ? cm/s Hepatic Artery [...] us to participate in the care of TARA BOOTHE. Please do not hesitate to call if you have any questions. ? Micheal Mcintosh MD Electronically Signed Final Report ?? 08/15/2013 10:58 am Procedure Note Micheal Mcintosh MD - 08/15/2013 Abdominal Duplex (Signed Final 08/15/2013 10:58 am) Patient Info ID: [id number] : [birth year] (53 yrs) Name: TARA BOOTHE Visit Date: 08/15/2013 10:41 am Performed By Performed By: Stacey Moreno RDMS Attending: Micheal Mcintosh MD Referred By: FATOUMATA MARK APRN Service(s) Provided UABDCVASC - Abdominal Complete Survey with [id number], 16243 Vascular - [id number], [id number] Indications cirrhosis, HCC surveillance Comparison CT : [...] in caliber Hepatic-Portal Duplex [facility] PSV: 21 cm/s Hepatic Artery PSV: 57.1 [...] us to participate in the care of TARA BOOTHE. Please do not hesitate to call if you have any questions. Micheal Mcintosh MD Electronically Signed Final Report 08/15/2013 10:58 am Juventino Esteban MD IMG US GEN ORDERABL ES documented in this encounter Visit Diagnoses Diagnosis Cirrhosis of liver- Primary Cirrhosis of liver without mention of alcohol Cirrhosis of liver Cirrhosis of liver without mention of alcohol documented in this encounter Care Teams Dinkey Mechanic Relationship Specialty Start Date End Date Emigdio Centeno MD [address] [place] [address] PCP - General 03/27/13 07/08/16 documented as of this encounter
--- OUTSIDE RECORDS SUMMARY | 2024-11-22 17:36 | XMS_ITS | Encounter Summary ---
Author Organization [facility] [place] [address] [place] [address] Care Team Providers Care Motel Operator Name Role Phone Emigdio Centeno MD Primary Care Provider [phone] Encounter Details Date Type Department Care Team (Late st Contact Info) Description 04/24/2013 Orders Only Hematology [place] [phone] Juliet Simmons APRN [facility] [place] [address] Social History Tobacco Use Types Packs/Day Years [...] 1:30 PM EST Appointment XRay at [address] [place] [phone] Laurent Cabrera MD [facility] ORTHOPAEDIC [place] [address] 11/29/2024 2:20 PM EST Office Visit [place] [phone] Laurent Cabrera MD [facility] ORTHOPAEDIC [place] [address] documented as of this encounter Visit Diagnoses Not on filedocumented in this encounter Care Teams Motel Operator Relationship Specialty Start Date End Date Emigdio Centeno MD [address] [place] [address] PCP - General 03/27/13 07/08/16 documented as of this encounter
--- OUTSIDE RECORDS SUMMARY | 2024-11-22 17:36 | XMS_ITS | Encounter Summary ---
Author Organization [facility] [place] [address] [place] [address] Care Team Providers Care Campaign Consultant Name Role Phone Emigdio Centeno MD Primary Care Provider [phone] Reason for Visit * Reason Onset Date Comments Results 05/01/2013 cbc Encounter Details Date Type Department Care Team (Late st Contact Info) Description 05/01/2013 Telephone Hematology and Oncology at [facility] [place] [place] [phone] Zully Martinez RN Results (cbc) Social History Tobacco Use Types Packs/Day Years [...] Telephone Encounter - Zully Martinez RN - 05/01/2013 10:45 AM EDT Received Carlos patrick from clinical physician office secretary that patient requests results of Cbc and iron studies.Lab results reported to patient. documented in this encounter Plan of Treatment Upcoming Encounters Date Type Department Care Team (Late st Contact Info) Description 11/29/2024 1:30 PM EST Appointment XRay at [address] [place] [phone] Laurent Cabrera MD [facility] [place] [address] 11/29/2024 2:20 PM EST Office [place] [address] Laurent Cabrera MD [facility] [place] [address] documented as of this encounter Visit Diagnoses Not on filedocumented in this encounter Care Teams Campaign Consultant Relationship Specialty Start Date End Date Emigdio Centeno MD [address] [place] [address] PCP - General 03/27/13 07/08/16 documented as of this encounter
--- OUTSIDE RECORDS SUMMARY | 2024-11-22 17:36 | XMS_ITS | Encounter Summary ---
Author Organization [facility] [place] [address] Care Team Providers Care Engraver Tender Name Role Phone Emigdio Centeno MD Primary Care Provider [phone] Encounter Details Date Type Department Care Team (Late st Contact Info) Description 04/30/2013 12:10 PM EDT - 04/30/2013 11:59 PM EDT Hospital Encounter [place]ematology [place] [phone] Dom Zeng MD Iron deficiency; Pancytopenia Discharge Disposition: Home Social History Tobacco [...] 11/29/2024 1:30 PM EST Appointment XRay at [address] [place] [address] Laurent Cabrera MD [facility] [place] [address] 11/29/2024 2:20 PM EST Office Visit Orthopaedics at [facility] [place] [phone] Laurent Cabrera MD [facility] [place] [address] documented as of this encounter Procedures Procedure Name Priority Date/Time Associated Diagnosis Comments DIFFERENTIAL, AUTOMATED Routine 04/30/2013 12:25 PM EDT IRON AND TIBC STAT 04/30/2013 12:25 PM EDT Iron deficiency Pancytopenia CBC (WITH DIFF) Routine 04/30/2013 12:25 PM EDT Iron deficiency Pancytopenia FERRITIN STAT 04/30/2013 12:25 PM EDT Iron deficiency Pancytopenia documented in this encounter Results * (ABNORMAL) Differential, Automated (04/30/2013 12:25 PM EDT) Neutrophil % 68.3 34.0 - 71.0 % CERNER MILLENNIUM Neutrophil Absolute 2.31 1.50 - 6.30 x10(3)/mc L CERNER MILLENNIUM Lymph % 22.5 19.0 - 53.0 % CERNER MILLENNIUM Lymphocytes Abs 0.8(L) 1.0 - 3.6 x10(3)/mc L CERNER MILLENNIUM Monocyte % 8.0 4.0 - 13.0 % CERNER MILLENNIUM Monocyte Abs 0.3 0.2 - 1.0 x10(3)/mc L CERNER MILLENNIUM Eos % 0.9 0.0 - 7.0 % CERNER MILLENNIUM Eosinophils [...] x10(3)/mc L CERNER MILLENNIUM Blood specimen (specimen) 04/30/2013 12:25 PM EDT 04/30/2013 12:41 PM EDT Dom Zeng MD HEMATOLOGY ORDER YANN [facility] VANCE[facility]NIUM * (ABNORMAL) Iron and TIBC (04/30/2013 12:25 PM EDT) Iron 48 30 - 150 mcg/dL CERNER MILLENNIUM TIBC 342 250 - 450 mcg/dL CERNER MILLENNIUM Iron Saturation 14(L) 20 - 50 % CERN ER MILLENNIUM Blood specimen (specimen) 04/30/2013 12:25 PM EDT 04/30/2013 12:41 PM EDT Narrative Resulting Agency Comment Spec In Lab Dom Zeng MD CHEMISTRY ORDERA BLES CERNER MILLENNIUM * Ferritin (04/30/2013 12:25 PM EDT) Ferritin 61 30 - 400 ng/mL CERNER MILLENNIUM Comment: Pediatric reference ranges not verified at [facility], interpret with caution. Reference ranges for females greater than 50 years of age approach values for men, i.e., 30-400 ng/mL. Blood specimen (specimen) 04/30/2013 12:25 PM EDT 04/30/2013 12:41 PM EDT Narrative Resulting Agency Comment Spec In Lab Dom Zeng MD CHEMISTRY ORDERA BLES KEVON ARREOLA * (ABNORMAL) CBC (with Diff) (04/30/2013 12:25 PM EDT) White Blood Cell 3.4(L) 4.0 [...] Platelet 80(L) 145 - 370 x10(3)/mc L CERNER MILLENNIUM RDW Standard Deviation 47.8(H) 35.0 - 46.0 fL CERNER MILLENNIUM RDW coefficient of variation 15.0(H) 10.9 - 14.4 % CERNER MILLENNIUM Mean Platelet Volume 10.4 9.0 - 12.0 fL CERNER MILLENNIUM Blood specimen (specimen) 04/30/2013 12:25 PM EDT 04/30/2013 12:41 PM EDT Narrative Resulting Agency Comment Spec In Lab Dom Zeng MD HEMATOLOGY ORDER YANN [facility] documented in this encounter Visit Diagnoses Diagnosis Iron deficiency Iron deficiency anemia, unspecified Pancytopenia Other pancytopenia documented in this encounter Care Teams Engraver Tender Relationship Specialty Start Date End Date Emigdio Centeno MD [address] [place] [address] PCP - General 03/27/13 07/08/16 documented as of this encounter
--- OUTSIDE RECORDS SUMMARY | 2024-11-22 17:36 | XMS_ITS | Encounter Summary ---
Author Organization [facility] [address] [place] [address] Care Team Providers Care Dishwasher Name Role Phone Emigdio Centeno MD Primary Care Provider [phone] Reason for Visit * Reason Onset Date Comments Medication Problem 05/07/2013 Lactulose Encounter Details Date Type Department Care Team (Late st Contact Info) Description 05/07/2013 Telephone Gastroenterology at [facility] [place] [address] Sowmya Willis energy conservation engineer Problem (Lactulose) Social History Tobacco Use Types Packs/Day Years [...] Telephone Encounter - Sowmya Willis RN - 05/10/2013 6:24 PM EDT Left message on identifiable voice mail, inquiring how Tara is doing with the lactulose, and with recommendations to follow up with PCP regarding anxiety and restless legs. Await call back. * Telephone Encounter - Sowmya Willis RN - 05/07/2013 6:03 PM EDT Message left for patient regarding the following from Denilson Corcoran: She can try 10 cc of Lactulosetwice daily. She should certainly follow-up with PCP about anxiety and restless legs. * Telephone Encounter - Sowmya Willis RN - 05/07/2013 12:20 PM EDT Returned Tara' call. She spoke with Denilson Mark-CONTENT CREATION MANAGER last week regarding titration of lactulose. Current dosing is 2 tbsp twice daily; her stools remain unformed. Today thus far she has had two loose/watery movements. She finds she is having abdominal cramping and body aches since beginning the medication. She uses plain Tylenol (liver dosing) but does not find this helpful. Her pcp has refilled her oxycodone 5 mg to use instead - she has joint issues, also. Tara also notes new pressure understernum since beginning lactulose, though admits to feeling very anxious lately (crying, worried) about her health. She has been on anxiety med but not for a few months. We briefly discussed it mightbe helpful to talk about this with her pcp. Finally, she has a hard time sleeping at night, it seems this is mostly due to restless legs. Will update CONTENT CREATION MANAGER. documented in this encounter Plan of Treatment Upcoming Encounters Date Type Department Care Team (Late st Contact Info) Description 11/29/2024 1:30 PM EST Appointment XRay at [address] [place] [address] Laurent Cabrera MD [facility] [place] [address] 11/29/2024 2:20 PM EST Office Visit Orthopaedics at [facility] [place] [address] Laurent Cabrera MD [facility] [place] [address] documented as of this encounter Visit Diagnoses Not on filedocumented in this encounter Care Teams Dishwasher Relationship Specialty Start Date End Date Emigdio Centeno MD [address] [place] [address] PCP - General 03/27/13 07/08/16 documented as of this encounter
--- OUTSIDE RECORDS SUMMARY | 2024-11-22 17:36 | XMS_ITS | Encounter Summary ---
Author Organization [facility] [place] [place] [address] Care Team Providers Care Damper Worker Name Role Phone Emigdio Centeno MD Primary Care Provider Reason for Visit * Reason Comments Other Encounter Details Date Type Department Care Team (Late st Contact Info) Description 04/13/2013 Telephone Hematology [place] [phone] Heike Curiel Social History Tobacco Use Types Packs/Day Years [...] Miscellaneous Notes * Telephone Encounter - Heike Curiel RN - 04/13/2013 8:31 AM EDT Fri April 13, 2013 8:22 AM To: Heike Curiel RN Message Tara Burroughs called, she would like the Liver panel and a BMBX results, which were done last week. Wouldyou please call her? [phone] Returned call to the pt. Notified her BMBX result appears pending at this time, however her CBC appears improved though her plts are although better compared to the previous value, remains low @ 86. Triage will notify provider of he inquiry for BMBX results on her behalf. Pt verbalized understanding, is in agreement and knows can call clinic 13/06 with any questions/concerns. documented in this encounter Plan of Treatment Upcoming Encounters Date Type Department Care Team (Late st Contact Info) Description 11/29/2024 1:30 PM EST Appointment XRay at [address] [place] [address] Laurent Cabrera MD [facility] [place] [address] 11/29/2024 2:20 PM EST Office Visit Orthopaedics at [facility] [place] [address] Laurent Cabrera MD [facility] [place] [address] documented as of this encounter Visit Diagnoses Not on filedocumented in this encounter Care Teams Damper Worker Relationship Specialty Start Date End Date Emigdio Centeno MD [address] [place] [address] PCP - General 03/27/13 07/08/16 documented as of this encounter
--- OUTSIDE RECORDS SUMMARY | 2024-11-22 17:37 | XMS_ITS | Encounter Summary ---
Author Organization [facility] [address] [place] [address] Care Team Providers Care District Plant Engineer Name Role Phone Emigdio Centeno MD Primary Care Provider [phone] Encounter Details Date Type Department Care Team (Late st Contact Info) Description 03/30/2013 4:30 PM EDT Office Visit H[place] [phone] Terra Escalera MD [facility] DR [place]EMAT[place] [address] Dom Zeng MD Leukopenia (Primary Dx) Discharge Disposition: Home Social History Tobacco Use Types Packs/Day Years Used Date Smoking Tobacco: Every Day Cigarettes Sex and Gender Information Value Date Recorded Sex Assigned at Not on file Gender Identity Not on file Sexual Orientation Not on file documented as of this encounter Progress Notes * Dom Zeng MD - 03/30/2013 4:38 PM EDT HEMATOLOGY/BMT CONSULTATION VISIT NOTE CHIEF COMPLAINT: Tara Yun is a 52 y.o. year old female referred by EMIGDIO CENTENO MD for evaluation of leukopenia and thrombocytopenia. She comes in today with her Yakov. DATA REVIEW (From [place], brought by Ms. Yun) 12/22/12 CBC - 3.2/12.5/105 12/28/12 LFTs - all WNL CBC - 3.0/12.7/98 2 CBC - 3.2/11.9/82 MCV - 87 ALC - 800, ANC - 2,100 02/01/13 B12 - 360, TSH - 0.9, ESR - 29, HISTORY OF PRESENT ILLNESS Tara Yun dates the onset of illness to August of 2012 when she was treated at [facility] after loosing consciousness and had a CBC as part of the w/u. No serious problem was found to explain her LOC and it has not recurred. They then went to [place] for the winter where she was supposed to see a telephone betting clerk but ended up needing surgery for an abdominal hernia and wasn't able tomake the appt. Tara says that she has felt more tired than usual for the last 2-3 months. She falls asleep easily. She has 13 grandchildren and says she now has trouble keeping up with them. Has been having mild sweats for a couple of years and attributed this to menopause. No drenching night sweats, fevers or chills. She has lost 32 lbs since November. She notes poor appetite but has also increased her walking over this time period. But she says her diet hasn't changed. Says she was recently told she has cirrhosis that was seen on a CT scan for her abd hernia. She says she was dx with Hepatitis C infection 12 years ago. Her is also Hep C positive, he says. New prescription medications - levothyroxine, iron, colace, vit B, Xanax and oxycodon are all new in the last year. New OTC products - none SH - They are now on their way back from wintering in [place] where they spend the winter. Tara is disabled for chronic knee and back pain. 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 REVIEW OF SYSTEMS Constitutional --Energy level: good --Pain: none --Fevers/chills/sweats: as above --Unexpected weight loss or [...] Immune System --Recent infections: No Hematology/Lymph --Bruising/bleeding/melena: says she had huge bruises on her abdomen after she had her recent surgery --Enlarged nodes or other masses: No Skin [...] for many years Tobacco - confirmed above FAMILY HISTORY Father - alive at 82 - abnormal blood clotting, low thyroid. 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 Siblings - 2 full brothers and 5 half-siblings. One sister with arthritis. One half-brother has a form of cancer - not sure what. No FH of blood problems or disorders PHYSICAL EXAM VITAL SIGNS: Blood pressure 110/78, [...] GASTROINTESTINAL: Abdomen soft, non-tender and without palpable masses or palpable hepatosplenomegaly the later could be missed due to large girth).. MUSCULOSKELETAL: Neck supple with full ROM. No spine or CVA tenderness. SKIN: No rashes or petechiae. There are a few small bruises. Non appear new. Abd surgical scars areall well healed. LYMPH: No abnormal lymphadenopathy. NEUROLOGICAL: Alert and oriented to person, place and time. LABORATORY Recent Results (from the past 72 hour(s)) CBC (WITH DIFF) Component Value Range WBC 2.8 (*) 4.0 - 10.0 x10(3)/mcL RBC 4.42 3.93 - 5.22 x10(6)/mcL Hemoglobin 12.2 11.2 - 15.7 gm/dL Hematocrit 38.1 34.0 - 45.0 % MCV 86.2 79.0 - 94.0 fL MCH 27.6 26.6 - 32.2 pg MCHC 32.0 32.0 - 36.5 gm/dL Platelets 78 (*) 145 - 370 x10(3)/mcL RDWSD 46.0 35.0 - 46.0 fL RDWCV 14.7 (*) 10.9 - 14.4 % MPV 9.8 9.0 - 12.0 fL COMPREHENSIVE METABOLIC PANEL (NON-FASTING) Component Value Range Glucose Lvl 81 60 - 199 mg/dL BUN 10 8 - 18 mg/dL Creatinine 0.75 0.70 - 1.20 mg/dL Sodium 140 135 - 145 mmol/L Potassium 3.8 3.5 - 5.0 mmol/L Chloride 103 98 - 107 mmol/L CO2 30 22 - 31 mmol/L Anion Gap 7 5 - 15 mmol/L Calcium 8.7 8.5 - 10.5 mg/dL Total Protein 7.0 6.4 - 8.3 gm/dL Albumin 3.9 3.2 - 5.2 gm/dL AST 24 0 - 30 unit/L ALT 18 0 - 30 unit/L Alk Phos 93 40 - 104 unit/L Total Bilirubin 0.3 0.2 - 1.3 mg/dL Bili, Direct 0.1 0.0 - 0.3 mg/dL Estimated GFR >60 >=60 LACTATE DEHYDROGENASE Component Value Range LDH 135 110 - 220 unit/L PROTEIN ELECTROPHORESIS, SERUM Component Value Range Total Prot Elec 6.6 6.1 - 8.0 gm/dL RETICULOCYTE COUNT Component Value Range Retic Ct % 1.2 0.5 - 2.4 % Retic Ct Abs 0.050 0.027 - 0.095 x10(6)/mcL Immature Retic% 10.2 2.3 - 15.9 % Reticulated Hgb 33.0 28.8 - 38.9 pg Plat Immature % 3.7 0.0 - 7.4 % DIRECT ANTIGLOBULIN TEST Component Value Range JORGE Negative DIFFERENTIAL, AUTOMATED Component Value Range Neutrophils % 64.4 34.0 - 71.0 % Neutr Abs (ANC) 1.80 1.50 - 6.30 x10(3)/mcL Lymphocytes % 23.7 19.0 - 53.0 % Lymphocytes Abs 0.7 (*) 1.0 - 3.6 x10(3)/mcL Monocytes % 9.7 4.0 - 13.0 % Monocyte Abs 0.3 0.2 - 1.0 x10(3)/mcL Eosinophils % 1.8 0.0 - 7.0 % Eosinophils Abs 0.0 0.0 - 0.5 x10(3)/mcL Basophils % 0.4 0.0 - 2.0 % Basophils Abs 0.0 0.0 - 0.2 x10(3)/mcL Immature Gran % 0.00 0.00 - 0.66 % Marcie Gran Abs 0.00 0.00 - 0.05 x10(3)/mcL Bone Marrow bx - normal trilineage maturation, no marrow-based explanation for low blood counts. Reviewed with Dr. Lakhani of Hematopathology. Hep C PCR - NEGATIVE RADIOLOGY - None ASSESSMENT & PLANS 1. Pancytopenia - Tara's recent CBC's show slowly worsening total WBC and plts. Her Hgb is normal today. Concerning her leukopenia, only her absolute lymphocyte count is less than normal. From thestudies we have back so far there is no clear etiology for her low counts. 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 Because prognosis and treatment would vary greatly based on her actual diagnosis, I recommended BM Bx to Tara. 2. Counseling - We reviewed potential causes of her low blood counts and the rationale for obtaining a BM Bx. We reviewed the BM Bx procedure [id number] and discussed possible adverse events includingprolonged pain at the bx site, bleeding and infection. We also discussed anesthesia options including local and conscious sedation. It was Tara's preference to have conscious sedation. We reviewed the [facility] BM B[place] consent point by point and at the end of our discussion we both signed it. It as then scanned into [facility]. 3. Follow-up - Tara already has an appointment in another department here on 04/09, so we have arranged for her to have BM Bx at 1 pm on that day. I will call her after I receive the results of herBM Bx. 04/04/13 ADDENDUM Lab evaluation shows elevated IgA and presence of an m-spike. HERSON pending but this is concerning for LPD. Planned BM Bx should clarify this. 04/18/13 ADDENDUM I called Tara today with the results of her BM Bx. This showed normal trilineage maturation without signs of MDS, lymphoproliferative disorder or other abnormality to explain her low plts and lymphocytes. 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 Her evaluation also reveals a small m-spike on her SPEP. 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 Her BM cytogenetics are still pending, but given the normal appearance of her marrow, these are also likely to be normal. I told Phyliss I'd call her back if they were not normal. Recommendations 1. Low plts and WBC - most likely due to hypersplenism. Unlikely to cause significant problems. Would recommend checking every 6 months or so. 2. MGUS - approx 1% per year chance of progressing to a more serious process. Would recommend checking SPEP every ~6 months with referral to Hematology if m- spike is rising. TOTAL TIME OF VISIT: 55 minutes TIME SPENT ON COUNSELING AND COORDINATION OF CARE: 30 minutes Dom Zeng M.D. latent print examiner & Pharmacology Section of Hematology/Oncology [facility] PCP: EMIGDIO CENTENO MD documented in this encounter Plan of Treatment Upcoming Encounters Date Type Department Care Team (Late st Contact Info) Description 11/29/2024 1:30 PM EST Appointment XRay at [address] [place] [address] Laurent Cabrera MD [facility] [place] [address] 11/29/2024 2:20 PM EST Office Visit Orthopaedics at [facility] [place] [address] Laurent Cabrera MD [facility] [place] [address] documented as of this encounter Visit Diagnoses Diagnosis Leukopenia- Primary Leukocytopenia, unspecified documented in this encounter Care Teams District Plant Engineer Relationship Specialty Start Date End Date Emigdio Centeno MD [address] [place] [address] PCP - General 03/27/13 07/08/16 documented as of this encounter
--- OUTSIDE RECORDS SUMMARY | 2024-11-22 17:37 | XMS_ITS | Continuity of Care Document ---
Author Organization [facility] Address [address] [place] [address] Phone Care Team Providers Care Barrel Ribs Solderer Name Role Phone Terrance Chávez MD Unavailable Unavailable Allergies, Adverse Reactions, Alerts Substance Reaction Status Criticality No Known Drug Allergies ; ; ; ; Active No I nformation Medications Medication Instructions Dosage Effective Dates (start - stop) Status Comments amitriptyline 50 mg tablet - Active Advance Directives Directive Yes / No Effective Date File Name No Information Encounters Encounter Description Practice Location Reason(s) For Visit Diagnoses Date Provider Providers Copied on Encounter [facility], [address], [place], [place], [id number], [place] tel:[phone] Liver disease, unspecified Kyler Carlos. [address], [place], [place], [id number], [place]. tel:[phone] Family History Family Member Type Diagnosis Age At Onset No Information Payers Payer name Insurance type Covered green party ID Authoriza tion(s) No Information Social History Type Description Quantity Date Captured Comments Sex Female Smoking Status No Information Chief Complaint And Reason For Visit No Information Reason For Referral Reason For Referral No Information History Of Present Illness Encounter Date Complaint History Of Prese nt Illness No Information Functional Status Date Functional Assessmen t No Information Instructions Date Instruction Additional Infor mation No Information Assessments Type Assessment Date No Information Patient Care Teams Name Effective Dates (start - stop) Status Members No Information
--- OUTSIDE RECORDS SUMMARY | 2024-11-22 17:37 | XMS_ITS | Encounter Summary ---
Author Organization [facility] [address] [place] [address] Care Team Providers Care Nurse Recruiter Name Role Phone Emigdio Centeno MD Primary Care Provider [phone] Encounter Details Date Type Department Care Team (Late st Contact Info) Description 04/03/2013 Orders Only Hematology [place] [phone] Juliet Simmons APRN [facility] [place] [address] Social History Tobacco Use Types Packs/Day Years [...] 1:30 PM EST Appointment XRay at [address] [place] [phone] Laurent Cabrera MD [facility] [place] [address] 11/29/2024 2:20 PM EST Office [place] [phone] Laurent Cabrera MD [facility] [address] Scheduled Orders Name Type Priority Associated Diagnoses Orde r Schedule (OSC MSURG)BONE MARROW ASP PERFORMED W/BX THRU BX INCISION Procedures Routine One Time f or 1 Occurrences starting 04/03/2013 until 04/03/2013 documented as of this encounter Visit Diagnoses Not on filedocumented in this encounter Care Teams Nurse Recruiter Relationship Specialty Start Date End Date Emigdio Centeno MD [address] [place] [address] PCP - General 03/27/13 07/08/16 documented as of this encounter
[2024-11-22 19:26] LABS: Absolute Basophil Count 0.02 10^3/uL (0.0-0.2); Absolute Eosinophil Count 0.02 10^3/uL (0.0-0.7); Absolute Lymphocyte Count 0.23 10^3/uL (1.2-3.4); Absolute Monocyte Count 0.21 10^3/uL (0.1-0.8); Absolute Neutrophil Count 1.38 10^3/uL (1.2-6.7); Basophils % 1.1 %; Eosinophils % 1.1 %; HCT 33.5 % (36.0-46.0); HGB 10.4 g/dL (11.2-15.7); Lymphocytes % 12.4 %; MCH 27.8 pg (27.0-33.0); MCV 90 fL (80-95); MPV 10.8 fL (8.0-11.0); Monocytes % 11.3 %; Neutrophils % 74.1 %; RBC 3.74 10^6/uL (3.93-5.22); RDW 15.9 % (11.7-14.6); RDW-SD 52.8 fL
[2024-11-22 19:47] LABS: WBC 1.86 10^3/uL (4.4-10.8)
[2024-11-22 19:50] LABS: ALT 13 U/L (14-59); AST 17 U/L (15-37); Albumin 3.1 g/dL (3.4-5.0); Alkaline Phosphatase 159 U/L (46-116); Anion Gap 3.2 mmol/L (3-11); BUN 15 mg/dL (7-18); Bilirubin, Total 0.37 mg/dL (0.2-1.0); CO2 29.8 mmol/L (21.0-32.0); CREATININE 1.2 mg/dL (0.55-1.02); Calcium 8.7 mg/dL (8.5-10.1); Chloride 112 mmol/L (98-107); Estimated GFR 50.55 (mL/min/1.73m2); Glucose 76 mg/dL (74-106); Potassium 4.1 mmol/L (3.5-5.1); Sodium 145 mmol/L (136-145); TSH (W/Ref FT4) 1.24 uIU/mL (0.36-3.74); Total Protein 6.5 g/dL (6.4-8.2)
[2024-11-22 19:53] LABS: Diff Comment Agrees w/ Instrument; Platelet Count 69 10^3/uL (130-400)
[2024-11-26 10:18] LABS: Oxycodone Screen, U Presumptive Positive ng/mL (Cutoff: 100)
[2024-11-27 12:17] LABS: Noroxycodone-by LC-MS/MS 786 ng/mL (Cutoff: 25); Noroxymorphone-by LC-MS/MS 421 ng/mL (Cutoff: 25); Oxycodone Interpretation Positive.; Oxycodone-by LC-MS/MS 111 ng/mL (Cutoff: 25); Oxymorphone-by LC-MS/MS 762 ng/mL (Cutoff: 25)
== END 2024-11-22 16:46 | disposition home or self-care (01) ==
LOC: NCHCN 16:45
PROVIDERS: Visit Provider Physician Assistant
DX: K74.60 Unspecified cirrhosis of liver (principal); M75.120 Complete rotator cuff tear or rupture of unspecified shoulder, not specified as traumatic; E03.9 Hypothyroidism, unspecified
CPT/HCPCS: 80053; 80307; 80365; 84443; 85025

== ENCOUNTER 2025-11-08 16:56 | Outpatient (REF) | payer OTHER, MEDICAID, SELFPAY ==
[2025-11-08 19:13] LABS: Abs Immature Grans 0.01 10^3/uL (0.0-0.06); HCT 36.0 % (36.0-46.0); HGB 11.5 g/dL (11.2-15.7); Immature Grans % 0.5 %; MCH 29.1 pg (27.0-33.0); MCHC 31.9 % (32.0-36.0); MCV 91 fL (80-95); MPV 10.5 fL (8.0-11.0); RBC 3.95 10^6/uL (3.93-5.22); RDW 15.1 % (11.7-14.6); RDW-SD 50.5 fL
[2025-11-08 19:40] LABS: Platelet Count 66 10^3/uL (130-400)
[2025-11-08 19:50] LABS: ALT 11 U/L (10-49); AST 21 U/L (<34); Albumin 3.6 g/dL (3.2-5.0); Alkaline Phosphatase 101 U/L (46-116); Anion Gap 8.8 mmol/L (3-11); BUN 15 mg/dL (9-23); Bilirubin, Total 0.6 mg/dL (0.2-1.2); CO2 28.2 mmol/L (20.0-31.0); Calcium 8.7 mg/dL (8.3-10.6); Chloride 104 mmol/L (98-107); Glucose 129 mg/dL (74-106); Potassium 3.9 mmol/L (3.5-5.1); Sodium 141 mmol/L (136-145); Total Protein 6.8 g/dL (5.7-8.2)
[2025-11-08 19:53] LABS: RBC Morphology Normal; WBC 1.85 10^3/uL (4.4-10.8)
== END 2025-11-08 16:57 | disposition home or self-care (01) ==
LOC: NCHCN 16:56
PROVIDERS: Visit Provider Physician Assistant
DX: R39.9 Unspecified symptoms and signs involving the genitourinary system (principal); R10.A2 Flank pain, left side; S46.011D Strain of muscle(s) and tendon(s) of the rotator cuff of right shoulder, subsequent encounter
CPT/HCPCS: 80053; 80348; 87077; 85025; 87086; 87186